=== PATIENT | male | born 1955 | race Caucasian/White ===

== ENCOUNTER 2019-04-21 10:06 | Outpatient (CLI) | payer OTHER, SELFPAY ==
[2019-04-21 10:37] LABS: Hematocrit 35.7 % (42.0-52.0); Hemoglobin 11.4 g/dL (14.0-18.0); Mean Corpuscular HGB Conc 31.9 g/dl (32-36); Mean Corpuscular Hemoglobin 27.7 pg (26-34); Mean Corpuscular Volume 86.7 fl (80-100); Mean Platelet Volume 12.4 fl (7.4-10.4); Platelet Count Result 157 k/mm3 (150-375); Red Blood Count 4.12 M/mm3 (4.6-6.20); Red Cell Distribution Width 15.5 % (11.5-14.5); White Blood Count 7.9 K/mm3 (4.5-10.0)
[2019-04-21 10:50] LABS: Albumin Level 3.9 g/dL (3.5-5.1); Blood Urea Nitrogen 33 mg/dL (9-20); Calcium 8.6 mg/dL (8.4-10.2); Carbon Dioxide 19 mmol/L (22-30); Chloride 106 mmol/L (98-107); Estimated Glomerular Filt Rate 17; Glucose 141 mg/dL (75-110); Phosphorus 4.2 mg/dL (2.5-4.5); Potassium 4.2 mmol/L (3.4-5.0); Sodium 139 mmol/L (137-145)
[2019-04-21 10:59] LABS: Iron 69 ug/dL (49-181)
[2019-04-21 11:02] LABS: Total Protein Urine Random > 600 mg/dL
[2019-04-21 11:08] LABS: Percent Iron Saturation 20 % (20-50)
[2019-04-21 11:36] LABS: Vitamin D 25 Hydroxy 39.2 ng/mL
[2019-04-21 11:57] LABS: Folic Acid > 20.0 ng/mL (2.76->20)
== END 2019-04-21 10:07 | disposition home or self-care (01) ==
PROVIDERS: PCP Family Medicine; Visit Provider Internal Medicine Nephrology
DX: N18.4 Chronic kidney disease, stage 4 (severe) (principal); D63.1 Anemia in chronic kidney disease
CPT/HCPCS: 36415; 80069; 82306; 82570; 82607; 82728; 82746; 83540; 83550; 83970; 84156; 85027

== ENCOUNTER 2019-05-14 05:13 | Inpatient (IN) | payer OTHER, SELFPAY ==
[2019-05-14] VITALS (16 sets, daily range): BP systolic 174–218; BP diastolic 77–101; PULSE 60–85; RESP 16–20; TEMP 36.4–36.9; O2SAT 96–100; BMI 37.8; BMI 35.9
--- NOTE | ~2019-05-14 | CT_ITS ---
EXAMINATION: CT abdomen pelvis wo con DATE: 05/14/2019 06:15 INDICATION: Left flank pain TECHNIQUE: Computed tomography (CT) of the abdomen and pelvis was performed without intravenous contr ast. Automated exposure control and iterative reconstruction technique were employed. The dose-length product was 1319.61 mGy-cm. COMPARISON: 12/19/2015 FINDINGS: Unchanged 7 mm noncalcified granuloma in the left lower lobe. Heart size is normal. Atherosclerotic c oronary artery calcification. No pericardial or pleural effusion. Unchanged small sliding-type hiatal hernia versus wall thickening the distal esophagus. Cholecystectomy clips the gallbladder fossa. Aga in seen is mild splenomegaly measuring 15.4 cm which may be related to body habitus. Bilateral renal cysts, several including the heart is 6.6 cm cyst at the lower pole of the right kidn ey demonstrating posterior layering milk of calcium. Interval decrease in size of a now 12 mm interme diate attenuation proteinaceous/hemorrhagic exophytic cyst at the lower pole of the left kidney. Post operative changes of cortical scarring along the anterior margin of the interpolar region of the righ t kidney consistent with prior partial nephrectomy. No urolithiasis or hydronephrosis. There is mild stranding and 20 mm nodular density in the fat along the caudal margin of the right hepatic lobe with differential including omental infarct although could not absolutely exclude local metastatic diseas e related to the adjacent renal cell carcinoma resection. Bowels including the appendix are normal. Diffuse bladder wall thickening which may be related to chr onic outlet obstruction from the enlarged prostate or cystitis. Moderate-sized bilateral fat-containi ng inguinal hernias, on the right including both direct and indirect components. No pathologically en larged abdominal or pelvic lymphadenopathy. No free intraperitoneal gas or fluid. There are bridging osteophytes at multiple levels in the spine, consistent with diffuse idiopathic skeletal hyperostosis (DISH). This spans couple chronic appearing mild compression fractures at 11 and T12. Unchanged T12 and L4 hemangiomas as well as a few small scattered bone islands. No suspicious lytic or blastic bone lesions. IMPRESSION: 1. Mild stranding and 12 mm nodular density in the fat along the caudal margin of the right hepatic l obe, also in relatively close proximity to the right kidney and normal-appearing ascending colon. Dif ferential would include omental infarct or potentially local metastatic disease related to the adjace nt partial right nephrectomy for renal cell carcinoma. 2. Diffuse bladder wall thickening which could be related to chronic outlet obstruction from the enla rged prostate or cystitis either acute or chronic. Correlate with urinalysis. 3. Moderate-sized bilateral fat-containing inguinal hernias. Reviewed, dictated and finalized at location A. IMPRESSION: 1. Mild stranding and 12 mm nodular density in the fat along the caudal margin of the right hepatic lobe, also in relatively close proximity to the right kidn ey and normal-appearing ascending colon. Differential would include omental inf arct or potentially local metastatic disease related to the adjacent partial ri ght nephrectomy for renal cell carcinoma. 2. Diffuse bladder wall thickening which could be related to chronic outlet obs truction from the enlarged prostate or cystitis either acute or chronic. Correl ate with urinalysis. 3. Moderate-sized bilateral fat-containing inguinal hernias.
--- NOTE | ~2019-05-14 | XR_ITS ---
EXAMINATION: XR chest 2V DATE: 05/14/2019 06:00 INDICATION: Chest pain TECHNIQUE: PA and lateral views of the chest were obtained. COMPARISON: Chest radiograph dated 03/11/2019 FINDINGS: Calcified nodule in the right upper lung zone consistent with old granulomatous disease. No other air space opacities, pulmonary edema, pleural effusion or pneumothorax. The cardiomediastinal silhouette is normal. There are bridging osteophytes at multiple levels in the spine, consistent with diffuse id iopathic skeletal hyperostosis (DISH). Cholecystectomy clips in the right upper quadrant. IMPRESSION: 1. No acute cardiopulmonary disease. Reviewed, dictated and finalized at location A.
--- NOTE | 2019-05-14 05:26 | ECG_ITS ---
Measurements Intervals [place] Rate: 65 P: 34 LA: 157 QRS: -36 QRSD: 92 T: 48 QT: 406 QTc: 423 Interpretive Statements SINUS RHYTHM LEFT AXIS DEVIATION INCOMPLETE RIGHT BUNDLE BRANCH BLOCK DELAYED PRECORDIAL R/S TRANSITION BORDERLINE T WAVE ABNORMALITY- INF/LAT LEADS BASELINE ARTIFACT- I, III, AVR, AVL BORDERLINE ECG Electronically Signed On 05-14-2019 7:25:03 CDT by Dilan Preciado D.O.
--- NOTE | 2019-05-14 05:28 | ED.BACK ---
HPI - Back Pain/Injury General Chief Complaint: Back Pain/Injury <Hiro Shane DO - Last Filed: 05/14/19 06:03> Stated Complaint: flank, back, chest, neck pain <Hiro Shane DO - Last Filed: 05/14/19 06:03> Time Seen by Provider: 05/14/19 05:22 <Hiro Shane DO - Last Filed: 05/14/19 06:03> Source: old records reviewed <Hiro Shane DO - Last Filed: 05/14/19 06:03> History of Present Illness HPI Narrative: Patient presents emergency department from home for back pain. Patient states that symptoms began approximately 3 days ago. The pain is located in the left mid back and radiates around into the left lower chest upper abdomen and then up into the neck. The pain is described as sharp and stabbing. Patient denies any associated symptoms. Denies any fevers or chills shortness of breath nausea vomiting diarrhea or any other symptoms. States the pain feels like gas . States he did try taking some gas medicine at home with no relief. Patient denies any known trauma or injury. He denies any thing that makes the pain better or worse <Hiro Shane DO - Last Filed: 05/14/19 06:03> Related Data Home Medications: Home Medications Medication Instructions Recorded Confirmed aspirin [Aspirin Low Dose] 81 mg PO DAILY 02/01/19 05/14/19 carvedilol [Coreg] 25 mg PO BID 02/01/19 05/14/19 cholecalciferol (vitamin D3) 2,000 unit PO DAILY 02/01/19 05/14/19 fenofibrate micronized 134 mg PO DAILY 02/01/19 05/14/19 furosemide [Lasix] 40 mg PO EVERY OTHER DAY 02/01/19 05/14/19 hydralazine 50 mg PO BID 02/01/19 05/14/19 insulin glargine [Lantus Solostar 40 unit SUBCUT BID 02/01/19 05/14/19 U-100 Insulin] vepkarch-pbm-ZJ-dnjub-xrlm-jvk 1 tablet PO BID 02/01/19 05/14/19 [Multi-Betic] sodium bicarbonate 650 mg PO BID 02/01/19 05/14/19 vit C-vit X-Ok-Qs-lutein-zeax 1 tablet PO BID 02/01/19 05/14/19 [ICaps AREDS2 (copper citrate)] atorvastatin 40 mg PO HS 05/14/19 05/14/19 blood sugar diagnostic [OneTouch 05/14/19 05/14/19 Ultra Blue Test Strip] <Hiro Shane DO - Last Filed: 05/14/19 06:03> Allergies/Adverse Reactions: Allergies Allergy/AdvReac Type Severity Reaction Status Date / Time No Known Allergies Allergy Unknown Verified 02/22/19 13:19 <Hiro Shane DO - Last Filed: 05/14/19 06:03> Review of Systems Review of Systems: Narrative: Gen.: Denies fevers or chills Eyes: Denies eye pain or visual change ENT: Denies congestion Respiratory: Denies shortness of breath or cough CV: Denies chest pain or palpitations GI: Denies nausea, emesis or diarrhea. Reports left upper abdomen pain denies burning, urgency, frequency or hematuria Musculoskeletal: Reports left mid back pain Neuro: Denies numbness, tingling, weakness or focal weakness Skin: Denies rash Except as documented, all other systems reviewed and negative <Hiro Shane, DO - Last Filed: 05/14/19 06:03> [facility] Past Medical History Medical History: Medical History Chronic GERD Diabetes Hypercholesterolemia Hypertension SHABNAM (obstructive sleep apnea) <Hiro Shane DO - Last Filed: 05/14/19 06:03> Surgical History Surgical History: Surgical History History of cholecystectomy History of partial nephrectomy Status post left cataract extraction Status post right knee replacement <Hiro Shane DO - Last Filed: 05/14/19 06:03> Family History Family History: Family History Mother Hypertension Cerebrovascular accident Father Family history of malignant neoplasm Carcinoma of colon <Hiro Shane DO - Last Filed: 05/14/19 06:03> Social History Social History: Social History Smoking status: Never smoker Second huber
[2019-05-14 05:40] LABS: Basophils Percent Auto 0.2 % (0.2-1.2); Hemoglobin 10.7 g/dL (14.0-18.0); Immature Granulocyte Absolute 0.15 K/mm3 (0.00-0.031); Immature Granulocyte Percent A 2.4 % (0-0.5); Lymphocytes Absolute Auto 0.92 K/mm3 (0.9-3.2); Lymphocytes Percent Auto 14.9 % (18.3-44.2); Mean Corpuscular HGB Conc 31.5 g/dl (32-36); Mean Corpuscular Hemoglobin 27.9 pg (26-34); Mean Corpuscular Volume 88.8 fl (80-100); Mean Platelet Volume 12.2 fl (7.4-10.4); Monocytes Absolute Auto 0.8 K/mm3 (0.1-0.6); Monocytes Percent Auto 12.9 % (2.6-8.5); Neutrophils Absolute Auto 4.3 K/mm3 (1.3-6.7); Neutrophils Percent Auto 69.6 % (45.5-73.1); Platelet Count Result 135 k/mm3 (150-375); Red Blood Count 3.83 M/mm3 (4.6-6.20); Red Cell Distribution Width 15.5 % (11.5-14.5); White Blood Count 6.2 K/mm3 (4.5-10.0)
[2019-05-14 05:52] LABS: Alanine Aminotransferase 15 U/L (4-50); Alkaline Phosphatase 75 U/L (38-126); Aspartate Amino Transferase 25 U/L (17-59); Bilirubin,Total 0.3 mg/dL (0.2-1.3); Blood Urea Nitrogen 44 mg/dL (9-20); Calcium 10.4 mg/dL (8.4-10.2); Carbon Dioxide 23 mmol/L (22-30); Chloride 105 mmol/L (98-107); Estimated CRCL calculation 19 ml/min; Estimated Glomerular Filt Rate 14; Glucose 241 mg/dL (75-110); Lipase 248 U/L (23-300); Potassium 4.3 mmol/L (3.4-5.0); Prothrombin Time 12.9 Seconds (11.1-14.7); Sodium 136 mmol/L (137-145)
[2019-05-14 05:53] LABS: Partial Thromboplastin Time 28.1 SECONDS (22.3-36.8)
[2019-05-14 06:13] LABS: Add Urine Microscopic? YES; Appearance Urine Clear (Clear); Bilirubin Urine Negative (Negative); Blood Urine Negative (Negative); Color Urine Straw (Yellow); Glucose Urine UA 3+ mg/dL (Negative); Ketones Urine Negative (Negative); Leukocyte Esterase Ur Negative LEU/UL (Negative); Mucus Urine Rare /lpf; Nitrate Urine Negative (Negative); Protein Urine 3+ mg/dL (Negative); Urobilinogen Urine Negative mg/dL (<2.0); WBC Urine 0-3 /hpf
[2019-05-14 06:15] LABS: Troponin I 0.058 ng/mL (0.000-0.034)
[2019-05-14] MEDS: hydrALAZINE HCL 20 MG/ML VIAL 10 MG IV PUSH ×2 (07:41→11:54)
[2019-05-14] MEDS: MORPHINE SULFATE 4 MG/ML INJ IV PUSH (08:16)
--- NOTE | 2019-05-14 08:55 | PC.NURSE ---
This patient, Kendall Carl, was admitted to IMU Room 207-01. Patient/family oriented to hospital policies and general routines including ID bracelet, bed and alarms, visiting hours, pain management, procedures, bathroom and other care routines, personal items, smoking policy, room service/diet, and visiting hours. Valuables list has been completed. Information on how to activate the Rapid Response Team has been discussed. Patient/Family are encouraged to report perceived risks to care and to ask questions if they do not understand what they are told or what they should do.
[2019-05-14 09:23] LABS: Troponin I 0.058 ng/mL (0.000-0.034)
[2019-05-14 12:10] LABS: Troponin I 0.055 ng/mL (0.000-0.034)
--- NOTE | 2019-05-14 16:55 | PM.IMHP ---
H&P: HPI History of Present Illness Chief complaint: chest pain/HTN/acute on chronic kidney dz Narrative: Kendall Carl is a 64 year old male admitted with chest pains in shoulder, neck and back. pt has history of HTN and CKD. Pt sees Dr Mccall. and is awaiting a renal transplant. Pt has been taking is HTN medications but his BP is running high. Sees cardiology in [place]. trop mild elevation, renal function slightly high. Bp are high pt receive IV hydralazine. No further chest pain mentioned. Pt uses CPAP machine for sleep apnea Review of Systems Review of Systems: All systems reviewed & are unremarkable except as noted in HPI and below Constitutional: Constitutional: Denies fatigue and Denies fever(s) Cardiovascular: Cardiovascular: Reports chest pain Comments: neck, shoulder abd back Respiratory: Respiratory: Denies pain on inspiration, Denies pain with cough, Denies dyspnea and Denies dyspnea on exertion PMFSH Past Medical History Medical History Diabetes Hypercholesterolemia Hypertension Surgical History Surgical History History of cholecystectomy History of partial nephrectomy Status post left cataract extraction Status post right knee replacement Family History Family History Mother Hypertension Cerebrovascular accident Father Family history of malignant neoplasm Carcinoma of colon Social History Social History Smoking status: Never smoker Second hand tobacco smoke exposure: No Alcohol intake: never Substance use: never Substance use type: does not use Gender identity (if verbalized by the patient): Male Spiritual care concerns: No Agree to blood products: Yes Meds Home Medications and Allergies Home Medications Medication Instructions Recorded Confirmed Type blood-glucose meter #1 each 12/23/18 05/14/19 Rx lancets 30 gauge #100 each 12/23/18 05/14/19 Rx aspirin [Aspirin Low Dose] 81 mg PO DAILY 02/01/19 05/14/19 History carvedilol [Coreg] 25 mg PO BID 02/01/19 05/14/19 History cholecalciferol (vitamin D3) 2,000 unit PO DAILY 02/01/19 05/14/19 History fenofibrate micronized 134 mg PO DAILY 02/01/19 05/14/19 History furosemide [Lasix] 40 mg PO EVERY OTHER DAY 02/01/19 05/14/19 History hydralazine 50 mg PO BID 02/01/19 05/14/19 History insulin glargine [Lantus Solostar 40 unit SUBCUT BID 02/01/19 05/14/19 History U-100 Insulin] ssrgmpbb-kco-LU-npuxe-hntl-wex 1 tablet PO BID 02/01/19 05/14/19 History [Multi-Betic] sodium bicarbonate 10 g PO BID 02/01/19 05/14/19 History vit C-vit D-En-Ir-lutein-zeax 1 tablet PO BID 02/01/19 05/14/19 History [ICaps AREDS2 (copper citrate)] pen needle, diabetic 32 gauge x #100 each 04/23/19 05/14/19 Rx 1/4 levothyroxine 112 mcg tablet 112 mcg PO DAILY #90 tablet 05/03/19 05/14/19 Rx atorvastatin 40 mg PO HS 05/14/19 05/14/19 History blood sugar diagnostic [OneTouch 05/14/19 05/14/19 History Ultra Blue Test Strip] Allergies Allergy/AdvReac Type Severity Reaction Status Date / Time No Known Allergies Allergy Unknown Verified 02/22/19 13:19 Vital Signs Vital Signs - 24 hr 05/14/19 05:17 05/14/19 06:22 05/14/19 07:30 Temperature 36.8 C Pulse Rate 65 61 63 Respiratory Rate 19 19 18 Blood Pressure 217/101 H 207/99 H 192/90 H Pulse Oximetry 98 100 97 05/14/19 08:45 05/14/19 10:00 05/14/19 12:00 Temperature 36.4 C L 36.4 C L Pulse Rate 63 62 63 Respiratory Rate 16 20 18 Blood Pressure 183/77 H 194/84 H 218/87 H Pulse Oximetry 96 98 96 05/14/19 12:34 Temperature Pulse Rate Respiratory Rate Blood Pressure 180/84 H Pulse Oximetry Exam Narrative: Exam Narrative: Morbidly obese HENMT: Head: normocephalic Eyes: General: appearance normal, both eyes and all re
--- NOTE | 2019-05-14 17:32 | PM.CNNEP ---
Assessment and Plan Assessment and plan (1) ALEX (acute kidney injury): Code(s): N17.9 - Acute kidney failure, unspecified Status: Acute (2) Chronic kidney disease, stage IV (severe): Code(s): N18.4 - Chronic kidney disease, stage 4 (severe) Status: Chronic (3) Hypertension: Code(s): I10 - Essential (primary) hypertension Status: Chronic (4) Chest pain: Code(s): R07.9 - Chest pain, unspecified Status: Acute (5) Diabetes: Code(s): E11.9 - Type 2 diabetes mellitus without complications Status: Chronic Assessment and Plan: . Additional Plan Kendall has what appears to be an acute insult on top of his known chronic kidney disease stage 4. I suppose this may be more of a sign of disease progression rather than an acute insult on top of his baseline kidney disease but it is difficult to say for sure. He has already had extensive outpatient evaluation with regard to his kidney disease is I see no reason to repeat this. For further evaluation of his elevated creatinine, I will check urine electrolytes, urine eosinophils, UA and urine culture and follow up on a renal ultrasound on the assumption that there may be some other anatomical issue present that the CT scan of her HIS abdomen and pelvis did not demonstrate. Cardiology has been counseled with regard to his pain symptoms particularly his chest pain and I would assume that is elevated troponin may be more reflective of his advanced kidney disease than acute coronary syndrome but I will defer this evaluation to Cardiology. In spite of his elevated creatinine, he has no critical electrolyte abnormalities and his volume status appears to be stable and he has continued to make urine at least today. I would not be opposed to a trial of IV fluid to see if this will improve his overall kidney function but he does not appear to be overtly volume depleted at the time of my assessment. I will continue follow patient with you while he remains hospitalized and make further recommendations during his hospital course. Thank you for allowing me to participate in the care of this patient. History of Present Illness Reason for Consult Consult date: 05/14/19 Reason for consult: acute renal failure (on chronic kidney disease) Chief Complaint Chief complaint: chest pain/HTN/acute on chronic kidney dz History of Present Illness Narrative: The patient is 64 year old male with a past medical history as outlined below who presented to [facility] complaints of chest pains as well as pain in his shoulders, neck and back. He states states that the above symptoms began approximately 3 - 4 days ago. Initially, the pain was located in the left mid back and radiates around into the left lower chest and upper abdomen and then up into the neck. He described the bernardino as sharp and stabbing. No other associated symptoms with regard to nausea, vomiting, shortness of breath, palpitations, dizziness, or lightheadedness. He reports no fevers or chills either. He felt as if the pain was gas but taking medications for this at home provided no relief. Patient denies any known trauma or injury to himself recently. He denies that anything makes the pain better or worse. Workup and evaluation in the emergency room demonstrated the patient be quite hypertensive (presumably secondary to pain). Routine blood tests were done which demonstrated an elevated BUN and creatinine above his baseline as well. His initial troponin was mildly elevated as well which was presumably checked given his complaints of chest pain. He also underwent a CT scan of the abdomen pelvis was demonstrated a 12 mm nodular density in fat along the caudal model of the right hepatic lobe clinically in close proximity to the right kidney with a possible concern for omental infarct or possible metastatic disease from his previous right nephrectomy. Given the patient's hist
[2019-05-14 18:22] LABS: Basophils Percent Auto 0.1 % (0.2-1.2); Hematocrit 34.7 % (42.0-52.0); Immature Granulocyte Absolute 0.14 K/mm3 (0.00-0.031); Immature Granulocyte Percent A 1.8 % (0-0.5); Lymphocytes Absolute Auto 0.99 K/mm3 (0.9-3.2); Mean Corpuscular HGB Conc 31.7 g/dl (32-36); Mean Corpuscular Volume 88.3 fl (80-100); Mean Platelet Volume 12.3 fl (7.4-10.4); Monocytes Absolute Auto 0.9 K/mm3 (0.1-0.6); Monocytes Percent Auto 12.3 % (2.6-8.5); Neutrophils Absolute Auto 5.6 K/mm3 (1.3-6.7); Neutrophils Percent Auto 72.8 % (45.5-73.1); Platelet Count Result 155 k/mm3 (150-375); Red Blood Count 3.93 M/mm3 (4.6-6.20); Red Cell Distribution Width 15.5 % (11.5-14.5); White Blood Count 7.6 K/mm3 (4.5-10.0)
[2019-05-14 18:32] LABS: Partial Thromboplastin Time 26.9 SECONDS (22.3-36.8); Prothrombin Time 12.9 Seconds (11.1-14.7)
[2019-05-14] MEDS: SODIUM BICARBONATE TAB 650 MG TABLET PO (19:31)
[2019-05-14] MEDS: OPTI-GEN TAB 1 TABLET PO (19:31)
[2019-05-14] MEDS: hydrALAZINE HCL 50 MG TABLET PO (19:31)
[2019-05-14] MEDS: carvediloL 25 MG TABLET PO (19:31)
[2019-05-14 19:39] LABS: Glucose Point of Care 231 (65-105)
[2019-05-14] MEDS: INSULIN GLARGINE (*BKC) 100 UNITS/ML 40 UNITS SUB-Q (19:41)
[2019-05-14] MEDS: ATORVASTATIN 40 MG TABLET PO (21:15)
[2019-05-14] MEDS: HEPARIN SODIUM 5,000 UNITS/ML VIAL 5000 UNITS SUB-Q (21:16)
[2019-05-15] VITALS (9 sets, daily range): BP systolic 177–194; BP diastolic 77–87; PULSE 58–72; RESP 18–20; TEMP 36.5–37; O2SAT 88–98
[2019-05-15] MEDS: hydrALAZINE HCL 20 MG/ML VIAL 10 MG IV PUSH (03:58)
[2019-05-15] MEDS: ACETAMINOPHEN 325 MG TABLET 650 MG PO (03:58)
[2019-05-15 05:48] LABS: Basophils Percent Auto 0.2 % (0.2-1.2); Hematocrit 31.8 % (42.0-52.0); Hemoglobin 10.3 g/dL (14.0-18.0); Immature Granulocyte Absolute 0.13 K/mm3 (0.00-0.031); Lymphocytes Absolute Auto 0.99 K/mm3 (0.9-3.2); Lymphocytes Percent Auto 15.2 % (18.3-44.2); Mean Corpuscular HGB Conc 32.4 g/dl (32-36); Mean Corpuscular Hemoglobin 28.2 pg (26-34); Mean Corpuscular Volume 87.1 fl (80-100); Mean Platelet Volume 12.8 fl (7.4-10.4); Monocytes Absolute Auto 0.8 K/mm3 (0.1-0.6); Monocytes Percent Auto 11.8 % (2.6-8.5); Neutrophils Absolute Auto 4.6 K/mm3 (1.3-6.7); Neutrophils Percent Auto 70.8 % (45.5-73.1); Platelet Count Result 146 k/mm3 (150-375); Red Blood Count 3.65 M/mm3 (4.6-6.20); Red Cell Distribution Width 15.5 % (11.5-14.5); White Blood Count 6.5 K/mm3 (4.5-10.0)
[2019-05-15 05:50] LABS: Blood Urea Nitrogen 44 mg/dL (9-20); Calcium 9.4 mg/dL (8.4-10.2); Carbon Dioxide 24 mmol/L (22-30); Chloride 106 mmol/L (98-107); Estimated CRCL calculation 23 ml/min; Estimated Glomerular Filt Rate 15; Glucose 89 mg/dL (75-110); Potassium 4.2 mmol/L (3.4-5.0); Sodium 136 mmol/L (137-145)
[2019-05-15] MEDS: LEVOTHYROXINE SODIUM 112 MCG TABLET PO (06:45)
[2019-05-15 07:59] LABS: Glucose Point of Care 109 (65-105)
[2019-05-15] MEDS: OPTI-GEN TAB 1 TABLET PO (08:23)
[2019-05-15] MEDS: ASPIRIN 81 MG ENTERIC TABLET PO (08:23)
[2019-05-15] MEDS: carvediloL 25 MG TABLET PO (08:23)
[2019-05-15] MEDS: FUROSEMIDE 40 MG TABLET PO (08:24)
[2019-05-15] MEDS: hydrALAZINE HCL 50 MG TABLET PO (08:24)
[2019-05-15] MEDS: CHOLECALCIFEROL 1,000 UNIT TABLET 2000 UNITS PO (08:24)
[2019-05-15] MEDS: HEPARIN SODIUM 5,000 UNITS/ML VIAL 5000 UNITS SUB-Q (08:25)
[2019-05-15] MEDS: INSULIN GLARGINE (*BKC) 100 UNITS/ML 40 UNITS SUB-Q (08:26)
--- NOTE | 2019-05-15 10:47 | PM.CNCAR ---
Assessment and Plan Assessment and plan (1) CAD (coronary artery disease): Code(s): I25.10 - Atherosclerotic heart disease of [place] coronary artery without angina pectoris Status: Acute Assessment and Plan: Mild nonobstructive disease 40% mid LAD by left heart catheterization 11/10/2018. Chest pain symptoms atypical, noncardiac and not related to nonobstructive disease noted on recent left heart catheterization. Continue aggressive medical therapy with aspirin, statin, carvedilol, management of diabetes and BP control. Up titration of antihypertensives per primary service and Nephrology. No further invasive cardiovascular workup indicated. Troponin flat, atypical constant symptoms, nonobstructive CAD recently on left heart catheterization, no EKG changes suggestive of ischemia. Patient is not suffering from an acute coronary syndrome. Do not need to repeat echocardiogram given close follow-up with Outpatient Cardiology and recent workup. Thank you for this consultation. We will sign off. Please do not hesitate to contact us with any additional questions or concerns. (2) Uncontrolled hypertension: Code(s): I10 - Essential (primary) hypertension Status: Acute Assessment and Plan: BP control. Will defer to Nephrology and primary service for management. (3) Elevated troponin level not due to acute coronary syndrome: Code(s): R79.89 - Other specified abnormal findings of blood chemistry Status: Acute Assessment and Plan: Non [place] troponin elevation. Type 2 infarct secondary to uncontrolled hypertension, advanced renal disease not acute coronary syndrome. (4) Acute renal failure superimposed on stage 4 chronic kidney disease: Code(s): N17.9 - Acute kidney failure, unspecified; N18.4 - Chronic kidney disease, stage 4 (severe) Status: Acute Assessment and Plan: Per Nephrology. (5) Diabetes: Code(s): E11.9 - Type 2 diabetes mellitus without complications Status: Chronic Assessment and Plan: Per primary service. (6) SHABNAM (obstructive sleep apnea): Code(s): G47.33 - Obstructive sleep apnea (adult) (pediatric) Status: Chronic Assessment and Plan: Compliance with CPAP. Lifestyle modification. (7) DM type 2 with diabetic dyslipidemia: Code(s): E11.69 - Type 2 diabetes mellitus with other specified complication; E78.5 - Hyperlipidemia, unspecified Status: Acute Assessment and Plan: Per primary service. History of Present Illness History of Present Illness Consult date/time: Date of service: 05/15/19 10:47 This is a cardiology consultation at the request of Dr. Taylor of the [facility] service for our opinion regarding elevated troponin and atypical back and chest pain. Requesting physician: Gisselle Taylor MD Consult reason: chest pain and Other (Elevated troponin) Reason For Visit: chest pain/HTN/acute on chronic kidney dz Narrative: Patient is a very pleasant 64-year-old male with a past medical history significant for hypertension, diabetes mellitus, chronic kidney disease stage 4, obstructive sleep apnea on CPAP, obesity, GERD, and dyslipidemia who presented to the emergency department with worsening left upper shoulder/back pain radiating to his left neck with occasional left lower chest discomfort. Patient states he has had these symptoms for the past 4-5 months and/or centrally constant. His symptoms wax and wane in intensity and notes that the component of chest discomfort is worsened after meals predominantly. He presented to the ER as his symptoms worsened and he could not find a comfortable position. At presentation he was very hypertensive with BP 218/102. He was given IV hydralazine with an improvement in his blood pressure. He notes that his symptoms improved as well but did not resolve with lower blood pressure. He does not check his blood pressure at home. He denies exertional c
[2019-05-15 11:34] LABS: Glucose Point of Care 175 (65-105)
--- NOTE | 2019-05-15 14:56 | PM.DS ---
DS: Diagnosis Admitting Diagnosis Admitting Diagnosis: Chronic kidney disease, stage 4 (severe) Discharge Diagnosis (1) Chronic kidney disease, stage 4 (severe): Code(s): N18.4 - Chronic kidney disease, stage 4 (severe) Status: Acute Assessment and Plan: Consulted nephrology, creat is 4.3, pt wants to folow up with Dr anderson, pt states he is on a waiting list for renal transplant. Dr Pacheco is recommends - urine electrolytes, urine eosinophils, UA and urine culture and follow up on a renal ultrasound. (2) Type 2 diabetes mellitus with hyperglycemia, with long-term current use of insulin: Code(s): E11.65 - Type 2 diabetes mellitus with hyperglycemia; Z79.4 - shelter (current) use of insulin Status: Acute Assessment and Plan: Acuchecks, SSI , uncontrolled, HBaic is 10, pt adviced to do beter with his diabetes control. (3) Chronic diastolic (congestive) heart failure: Code(s): I50.32 - Chronic diastolic (congestive) heart failure Status: Acute Assessment and Plan: Echo ordered. (4) Chest pain: Code(s): R07.9 - Chest pain, unspecified Status: Acute Assessment and Plan: Non cardiac trop raise, mild nonobstructive disease 40% mid LAD by left heart catheterization 11/10/2018. Pt advised to continue cardiac medications and have better control of his htn and dm. (5) Hypertension: Code(s): I10 - Essential (primary) hypertension Status: Chronic Assessment and Plan: Uncontrolled HTN controlled by hydralazine iv pt transitioned to oral hydralazine tid. DS: Summary Time Spent with Patient Time attestation: Total time spent providing and/or coordinating discharge services:38 minutes on day of dischrage Exam Narrative: Exam Narrative: Morbidly obese HENMT: Head: normocephalic Eyes: General: appearance normal, both eyes and all related structures Pupils: Equal, round and reactive pupils present Neck: Neck: supple Chest: Chest palpation & inspection: normal inspection of the chest Resp: Effort & Inspection: normal respiratory effort Auscultation: clear to auscultation bilaterally Cardio: Jugular venous distension: no JVD Rhythm: regular rhythm Heart sounds: S1 normal heart sound present and S2 normal heart sound present GI: Inspection: normal to inspection Auscultation: normal bowel sounds : General: Yes no CVA tenderness Back/Spine/Pelvis: Back: no CVA tenderness Skin: General skin exam: normal color and dry skin Neuro: Cranial nerves: Yes CN's II-XII intact bilaterally and Yes Equal, round and reactive pupils present Cognition (Neuro): normal cognition Speech: normal speech Motor exam (neuro): 5/5 motor strength present throughout Extrem: General: normal to inspection Psych: Appearance: grossly normal Mental Status: mental status grossly normal DS: Data Data Completed and Pending Labs on day of discharge: Labs from last 24 hours 05/15/19 05/15/19 05/15/19 11:31 07:54 04:43 WBC RBC Hgb Hct MCV MCH MCHC RDW Plt Count MPV Immature Gran % (Auto) Neut % (Auto) Lymph % (Auto) [place] % (Auto) Eos % (Auto) Baso % (Auto) Lymph # (Auto) [place] # (Auto) Eos # (Auto) Baso # (Auto) Abs Immat Gran (auto) Absolute Neuts (auto) Absolute Nucleated RBC Nucleated RBC % PT INR APTT Sodium 136 L Potassium 4.2 Chloride 106 Carbon Dioxide 24 BUN 44 H Creatinine 4.00 H Estim Creat Clear Calc 23 Estimated GFR 15 L Glucose 89 POC Capillary Glucose 175 H 109 Calcium 9.4 05/15/19 05/14/19 05/14/19 04:43 19:37 18:11 WBC 6.5 RBC 3.65 L Hgb 10.3 L Hct 31.8 L MCV 87.1 MCH 28.2 MCHC 32.4 RDW 15.5 H Plt Count 146 L MPV 12.8 H Immature Gran % (Auto) 2.0 H Neut % (Auto) 70.8 Lymph % (Auto) 15.2 L [place] % (Auto) 11.8 H Eos % (Auto) 0.0 Baso % (A
== END 2019-05-15 13:50 | disposition home or self-care (01) | DRG 281 ==
LOC: ANHED 08:11 → ANHIMU 08:25
PROVIDERS: Admitting Provider Family Medicine; Emergency Provider Emergency Medicine; PCP Family Medicine; Visit Provider Family Medicine
DX: I13.0 Hypertensive heart and chronic kidney disease with heart failure and stage 1 through stage 4 chronic kidney disease, or unspecified chronic kidney disease (principal); I21.A1 Myocardial infarction type 2; N18.4 Chronic kidney disease, stage 4 (severe); I50.32 Chronic diastolic (congestive) heart failure; N17.9 Acute kidney failure, unspecified; E11.22 Type 2 diabetes mellitus with diabetic chronic kidney disease; E11.65 Type 2 diabetes mellitus with hyperglycemia; K21.9 Gastro-esophageal reflux disease without esophagitis; G47.33 Obstructive sleep apnea (adult) (pediatric); E78.00 Pure hypercholesterolemia, unspecified; E66.01 Morbid (severe) obesity due to excess calories; Z96.651 Presence of right artificial knee joint; Z68.35 Body mass index [BMI] 35.0-35.9, adult; Z79.82 Long term (current) use of aspirin; Z28.21 Immunization not carried out because of patient refusal; Z90.49 Acquired absence of other specified parts of digestive tract; Z98.42 Cataract extraction status, left eye; Z98.41 Cataract extraction status, right eye; Z79.4 Long term (current) use of insulin; I25.10 Atherosclerotic heart disease of native coronary artery without angina pectoris
CPT/HCPCS: 36415; 71046; 74176; 80048; 80053; 81001; 83690; 84484; 85025; 85610; 85730; 93005; 96374; 96375; 99285; A9270; J0360; J1644; J1815; J2270

== ENCOUNTER 2019-05-27 10:35 | Outpatient (CLI) | payer OTHER, SELFPAY ==
[2019-05-27 11:04] LABS: Albumin Level 4.1 g/dL (3.5-5.1); Blood Urea Nitrogen 46 mg/dL (9-20); Calcium 9.7 mg/dL (8.4-10.2); Carbon Dioxide 23 mmol/L (22-30); Chloride 108 mmol/L (98-107); Estimated Glomerular Filt Rate 15; Glucose 118 mg/dL (75-110); Phosphorus 4.6 mg/dL (2.5-4.5); Potassium 4.8 mmol/L (3.4-5.0); Sodium 139 mmol/L (137-145)
[2019-05-27 11:17] LABS: Parathyroid Intact 30.2 pg/mL (7.5-53.5)
== END 2019-05-27 10:36 | disposition home or self-care (01) ==
LOC: ANHLAB 10:37
PROVIDERS: PCP Family Medicine; Visit Provider Internal Medicine Nephrology
DX: N18.4 Chronic kidney disease, stage 4 (severe) (principal); E03.8 Other specified hypothyroidism
CPT/HCPCS: 36415; 80069; 83970; 84443

== ENCOUNTER 2020-06-02 12:31 | Outpatient (CLI) | payer OTHER, SELFPAY ==
--- NOTE | ~2020-06-02 | XR_ITS ---
EXAMINATION: XR chest 2V DATE: 06/02/2020 12:51 INDICATION: Cough. Shortness of breath. TECHNIQUE: Frontal and lateral views of the chest were obtained. COMPARISON: Chest 2 views 05/14/2019 FINDINGS: A calcified right lung nodule is consistent with old granulomatous disease. No pleural effu apoorva or pneumothorax. The heart size is normal. Surgical clips in the right upper quadrant are likely from cholecystectomy. There is chronic anterior wedging of multiple vertebral bodies. IMPRESSION: 1. No acute cardiopulmonary disease. Reviewed, dictated and finalized at location A.
== END 2020-06-02 12:32 | disposition home or self-care (01) ==
PROVIDERS: PCP Family Medicine; Visit Provider Physician Assistant
DX: R05 Cough (principal)
CPT/HCPCS: 71046

== ENCOUNTER 2020-09-02 11:06 | Emergency (ER) | payer OTHER, SELFPAY ==
[2020-09-02] VITALS (7 sets, daily range): BP systolic 108–146; BP diastolic 60–74; PULSE 79–83; RESP 18–20; TEMP 36.9; O2SAT 96–100
--- NOTE | ~2020-09-02 | XR_ITS ---
EXAMINATION: XR abdomen/kub 1V INDICATION: Right flank pain TECHNIQUE: Supine views of the abdomen were obtained on 2 radiographs. COMPARISON: CT from today FINDINGS: No urolithiasis is identified. A peritoneal dialysis catheter coils in the left mid abdomen . Cholecystectomy clips are noted. The bowel gas pattern is normal. IMPRESSION: 1. No urolithiasis identified. Reviewed, dictated and finalized at location A.
--- NOTE | ~2020-09-02 | CT_ITS ---
EXAMINATION: CT abdomen pelvis wo con DATE: 09/02/2020 13:39 INDICATION: Right flank pain TECHNIQUE: Computed tomography (CT) of the abdomen and pelvis was performed without intravenous contr ast. The dose-length product (DLP) was 1294.16 mGy-cm. Automated exposure control and iterative recon struction technique were employed. COMPARISON: 05/14/2019 FINDINGS: Minimal dependent atelectasis is present in the lung bases. The heart size is normal. There is mild nodularity of the liver surface. The gallbladder is surgically absent. The mildly enlarged s pleen measures up to 14.9 cm. The pancreas and adrenal glands are normal. There are tiny foci of free intraperitoneal gas in the upper abdomen. There are changes of partial right nephrectomy. Simple and hemorrhagic cysts of the right kidney measure up to 4 cm. Simple and hemorrhagic cysts of the left k idney measure up to 3.8 cm. There is a new 3 cm exophytic mass projecting from the medial aspect of k idney lower pole on image 78. A peritoneal dialysis catheter coiled within the mid abdomen with a sma ll amount of surrounding fluid. A small amount of infiltration of the fat is seen near the right hepa tic lobe, likely sequela of right kidney surgery. There is mild periportal lymphadenopathy, likely re active. There are no dilated loops of bowel. The prostate is enlarged. There is severe lumbar spondyl osis. There are fat-containing umbilical and bilateral inguinal hernias. The appendix is normal. IMPRESSION: 1. Tiny foci of free intraperitoneal gas in the upper abdomen which could relate to the peritoneal di alysis catheter. Bowel perforation is also a consideration however no source is identified. 2. New indeterminate mass of the left kidney lower pole. Follow-up with nonemergent CT or MRI without and with contrast is recommended. 3. Mild nodularity of the liver surface, consistent with cirrhosis. Reviewed, dictated and finalized at location A. IMPRESSION: 1. Tiny foci of free intraperitoneal gas in the upper abdomen which could relat e to the peritoneal dialysis catheter. Bowel perforation is also a consideratio n however no source is identified. 2. New indeterminate mass of the left kidney lower pole. Follow-up with nonemer gent CT or MRI without and with contrast is recommended. 3. Mild nodularity of the liver surface, consistent with cirrhosis.
--- NOTE | 2020-09-02 12:28 | ED.ABDPAIN ---
HPI - Abdominal Pain General Chief Complaint: Abdominal Pain Stated Complaint: abd pain Time Seen by Provider: 09/02/20 12:04 Source: patient and RN notes reviewed Mode of arrival: ambulatory Limitations: no limitations History of Present Illness HPI narrative: This is a 65 year old male with chronic renal failure on peritoneal dialysis, DM, hypertension who presents for evaluation right flank pain. Patient states his pain has been present for 10 days. He reports pain to right upper abdomen that radiates to right low back and right groin. He states pain has been constant and progressively worsening. He started having nausea and vomiting today. He was evaluated by his primary care physician 1 week ago and he was prescribed muscle relaxers. He states his pain is getting worse. He denies dysuria or hematuria. He denies fever or chills. He reports chronic weakness. He reports history of kidney stones but his pain is different. Related Data Home Medications Medication Instructions Recorded Confirmed ICaps AREDS2 (copper citrate) 1 tablet PO BID 02/01/19 08/23/20 aspirin [Aspirin Low Dose] 81 mg PO DAILY 02/01/19 08/23/20 cholecalciferol (vitamin D3) 2,000 unit PO DAILY 02/01/19 08/23/20 sodium bicarbonate 650 mg PO BID 02/01/19 08/23/20 atorvastatin 80 mg PO HS 05/14/19 08/23/20 blood sugar diagnostic [OneTouch 05/14/19 08/23/20 Ultra Blue Test Strip] carvedilol 25 mg tablet 25 mg PO BID tablet 09/06/19 08/23/20 furosemide 40 mg tablet 80 mg PO BID tablet 09/06/19 08/23/20 minoxidil 2.5 mg tablet 2.5 mg PO BID 09/06/19 08/23/20 insulin glargine [Basaglar KwikPen 40 unit SUBCUT BID 09/02/20 U-100 Insulin] insulin lispro [Humalog U-100 See Rx Instructions .ROUTE .COMPLEX 09/02/20 Insulin] lisinopril 20 mg PO BID 09/02/20 Allergies Allergy/AdvReac Type Severity Reaction Status Date / Time No Known Allergies Allergy Unknown Verified 09/02/20 11:57 Review of Systems Review of Systems: All systems reviewed & are unremarkable except as noted in HPI and below PMFSH Past Medical History Medical History (Updated 09/02/20 @ 16:22 by Amalia Holman MD) Chronic GERD Diabetes DM renal manif type II, uncontrolled ESRD (end stage renal disease) Hypercholesterolemia Hypertension SHABNAM (obstructive sleep apnea) Rhinitis Surgical History Surgical History History of cholecystectomy History of partial nephrectomy Status post left cataract extraction Status post right knee replacement Family History Family History Mother Hypertension Cerebrovascular accident Father Family history of malignant neoplasm Carcinoma of colon Social History Social History Smoking status: Never smoker Second hand tobacco smoke exposure: No Alcohol intake: current Alcohol use details: rare, holidays Substance use: never Substance use type: does not use Gender identity (if verbalized by the patient): Male Spiritual care concerns: No Agree to blood products: Yes Exam Const: General: no acute distress and alert Orientation/consciousness: patient oriented x3 HENMT: Head: normocephalic and atraumatic Mouth: Yes Normal oral and palatal mucosa present, Yes lip normal, Yes oropharynx normal and Yes moist mucous membranes Throat: posterior oropharynx normal, tonsils normal and uvula midline Eyes: EOM: EOMs intact bilaterally Resp: Effort & Inspection: normal respiratory effort and no retractions Auscultation: clear to auscultation bilaterally Cardio: Rate: regular rate Rhythm: regular rhythm Heart sounds: no murmurs GI: GI Palp: Yes Soft to palpation, Yes Tenderness to palpation present (GI) (RUQ, RLQ) and No Guarding due to palpation present (GI) Auscultation: normal bowel sounds : General: Yes no CVA tenderness Back/Spine/Pelvi
[2020-09-02] MEDS: SODIUM CHLORIDE 0.9% IV 500 ML 999 ML IV CONT (12:45)
[2020-09-02] MEDS: HYDROmorphone HCL INJ (*CRX) 1 MG/ML SYR 0.5 MG IV PUSH ×2 (12:46→15:50)
[2020-09-02] MEDS: ONDANSETRON INJ 4 MG/2 ML VIAL IV PUSH (12:50)
[2020-09-02 13:31] LABS: Basophils Percent Auto 0.1 % (0.2-1.2); Hematocrit 28.9 % (42.0-52.0); Hemoglobin 9.9 g/dL (14.0-18.0); Immature Granulocyte Absolute 0.06 K/mm3 (0.00-0.031); Immature Granulocyte Percent A 0.7 % (0-0.5); Lymphocytes Absolute Auto 0.39 K/mm3 (0.9-3.2); Lymphocytes Percent Auto 4.4 % (18.3-44.2); Mean Corpuscular HGB Conc 34.3 g/dl (32-36); Mean Corpuscular Volume 87.6 fl (80-100); Mean Platelet Volume 11.3 fl (7.4-10.4); Monocytes Absolute Auto 1.1 K/mm3 (0.1-0.6); Monocytes Percent Auto 12.9 % (2.6-8.5); Neutrophils Absolute Auto 7.2 K/mm3 (1.3-6.7); Neutrophils Percent Auto 81.9 % (45.5-73.1); Platelet Count Result 125 k/mm3 (150-375); Red Cell Distribution Width 13.5 % (11.5-14.5); White Blood Count 8.8 K/mm3 (4.5-10.0)
[2020-09-02 13:40] LABS: Alanine Aminotransferase 18 U/L (4-50); Albumin Level 3.8 g/dL (3.5-5.1); Alkaline Phosphatase 71 U/L (38-126); Anion Gap 10 mmol/L (8-16); Aspartate Amino Transferase 19 U/L (17-59); Bilirubin,Total 0.8 mg/dL (0.2-1.3); Blood Urea Nitrogen 32 mg/dL (9-20); Calcium 8.6 mg/dL (8.4-10.2); Carbon Dioxide 28 mmol/L (22-30); Chloride 99 mmol/L (98-107); Estimated CRCL calculation 17 ml/min; Estimated Glomerular Filt Rate 11; Glucose 185 mg/dL (65-110); Lipase 79 U/L (23-300); Potassium 3.9 mmol/L (3.4-5.0); Sodium 137 mmol/L (137-145)
--- NOTE | 2020-09-02 14:33 | PC.NURSE ---
Patient attempted to urinate in urinal, patient unaware that lid was still on top of urinal and urinated on the floor. Advised patient we still will need a urine specimen, and urine was cleaned up at this time.
[2020-09-02 14:56] LABS: Add Urine Microscopic? YES; Amorphous Sediment Urine Few; Appearance Urine Cloudy (Clear); Bacteria Urine Trace /hpf; Bilirubin Urine Negative (Negative); Blood Urine Negative (Negative); Color Urine Yellow (Yellow); Glucose Urine UA Negative (Negative); Ketones Urine Negative (Negative); Leukocyte Esterase Ur Negative LEU/UL (Negative); Nitrate Urine Negative (Negative); Protein Urine 2+ mg/dL (Negative); RBC Urine 0-2 /hpf (0-2); Specific Grav Ur 1.016 (1.001-1.035); Squamous Epithelial Cell Urine Rare /hpf (Few); Urobilinogen Urine Negative mg/dL (<2.0)
--- NOTE | 2020-09-02 15:34 | PC.NURSE ---
Patient c/o recurring abdominal pain, Dr. Holman notified. Awaiting new orders.
== END 2020-09-02 16:35 | disposition left against medical advice (07) ==
PROVIDERS: Emergency Provider General Practice; PCP Family Medicine
DX: R10.9 Unspecified abdominal pain (principal); K66.8 Other specified disorders of peritoneum; E11.22 Type 2 diabetes mellitus with diabetic chronic kidney disease; I12.0 Hypertensive chronic kidney disease with stage 5 chronic kidney disease or end stage renal disease; N18.6 End stage renal disease; Z99.2 Dependence on renal dialysis; Z79.4 Long term (current) use of insulin; Z79.82 Long term (current) use of aspirin; K21.9 Gastro-esophageal reflux disease without esophagitis; E78.00 Pure hypercholesterolemia, unspecified; G47.33 Obstructive sleep apnea (adult) (pediatric); Z90.5 Acquired absence of kidney; Z98.42 Cataract extraction status, left eye; Z96.651 Presence of right artificial knee joint; R93.2 Abnormal findings on diagnostic imaging of liver and biliary tract; N28.89 Other specified disorders of kidney and ureter
CPT/HCPCS: 36415; 74018; 74176; 80053; 81001; 83690; 85025; 85055; 96361; 96374; 96375; 96376; 99284; J1170; J2405; J7040

== ENCOUNTER 2021-03-15 10:08 | Outpatient (RCR) | payer MEDICARE, SELFPAY ==
[2021-03-15 10:36] VITALS: BP 121/60; PULSE 70; TEMP 36.2; O2SAT 100
[2021-03-15] MEDS: ACETAMINOPHEN 325 MG TABLET 650 MG PO (10:43)
[2021-03-15] MEDS: FAMOTIDINE 20 MG TABLET PO (10:43)
[2021-03-15] MEDS: diphenhydrAMINE HCl CAP 25 MG CAPSULE PO (10:44)
[2021-03-15 12:01] VITALS: BP 125/66; PULSE 68; O2SAT 100
== END 2021-03-15 16:00 ==
LOC: AMCINF 10:08
PROVIDERS: PCP Internal Medicine Nephrology; Visit Provider Internal Medicine Hematology & Oncology
DX: U07.1 COVID-19 (principal); N18.9 Chronic kidney disease, unspecified
CPT/HCPCS: A9270; M0247; Q0247

== ENCOUNTER 2021-03-19 17:27 | Emergency (ER) | payer MEDICARE, SELFPAY ==
[2021-03-19] VITALS (9 sets, daily range): BP systolic 127–149; BP diastolic 64–85; PULSE 65–79; RESP 15–18; TEMP 36.3; O2SAT 98–100
--- NOTE | ~2021-03-19 | CT_ITS ---
EXAMINATION: CT brain wo con EXAM DATE: 03/19/2021 19:31 INDICATION: Dizziness. TECHNIQUE: Spiral CT of the head was performed without contrast. Axial, coronal and sagittal images were reviewed. The dose-length product (DLP) for this examination was 681.00 mGy-cm. The exposure w as tailored according to patient size, and iterative reconstruction (ASIR) was used as additional dos e reduction technique. There is no prior study for comparison. FINDINGS: Mild enlargement of the pituitary gland without focal cystic region, mildly bulging out of the sella turcica without mass effect on the optic chiasm. There is also some extension into the righ t sphenoid sinus with bony remodeling. Mild microangiopathy and cerebral atrophy. There is no acute i ntraparenchymal hemorrhage. No evidence of acute infarction. There is no mass effect or midline juan ft. The ventricles are normal in size. There are no extra-axial collections. There are no acute ca lvarial fractures. Patient has had left-sided ocular lens surgery. Soft tissue is unremarkable. Th e visualized sinuses and mastoid air cells are well aerated. IMPRESSION: 1. 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 No cystic component or calcification to suggest craniopharyngioma. This is a chronic finding and unrelated to patient's acute symptoms. Pi tuitary MRI would be best for evaluating on nonemergent basis. 2. Mild age-related findings. Reviewed, dictated and finalized at location G. BAND OPERATOR IMPRESSION: 1. 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 No cystic compo nent or calcification to suggest craniopharyngioma. This is a chronic finding a nd unrelated to patient's acute symptoms. Pituitary MRI would be best for evalu ating on nonemergent basis. 2. Mild age-related findings.
--- NOTE | ~2021-03-19 | XR_ITS ---
EXAMINATION: XR chest 1V EXAM DATE: 03/19/2021 18:10 INDICATION: covid positive Since 03/12, Cough, Upper Cp, Dizziness . TECHNIQUE: Portable AP frontal chest x-ray was obtained. Comparison is made to prior examination from 06/02/2020. FINDINGS: Right upper lobe granuloma. The lungs are otherwise clear. There are no pleural effusions. The cardiomediastinal silhouette is within normal limits. There is no pneumothorax suspected. The bones and soft tissues are unremarkable. IMPRESSION: No acute cardiopulmonary findings. Reviewed, dictated and finalized at location G. EL INSPECTOR
--- NOTE | 2021-03-19 17:40 | ECG_ITS ---
Measurements Intervals [place] Rate: 69 P: 44 [place]: 160 QRS: -52 QRSD: 86 T: 18 QT: 457 QTc: 491 Interpretive Statements SINUS RHYTHM LEFT AXIS DEVIATION CANNOT RULE OUT SEPTAL INFARCT, AGE INDETERMINATE BORDERLINE T WAVE ABNORMALITY- INF/LAT LEADS ABNORMAL ECG Electronically Signed On 03-19-2021 20:40:51 COMMERCIAL CREDIT ANALYST by Dilan Preciado D.O.
[2021-03-19 18:23] LABS: Hematocrit 28.5 % (42.0-52.0); Hemoglobin 9.7 g/dL (14.0-18.0); Immature Granulocyte Absolute 0.06 K/mm3 (0.00-0.031); Immature Granulocyte Percent A 1.2 % (0-0.5); Lymphocytes Absolute Auto 0.81 K/mm3 (0.9-3.2); Lymphocytes Percent Auto 16.4 % (18.3-44.2); Mean Corpuscular Hemoglobin 30.6 pg (26-34); Mean Corpuscular Volume 89.9 fl (80-100); Mean Platelet Volume 11.1 fl (7.4-10.4); Monocytes Absolute Auto 0.6 K/mm3 (0.1-0.6); Monocytes Percent Auto 12.6 % (2.6-8.5); Neutrophils Absolute Auto 3.4 K/mm3 (1.3-6.7); Neutrophils Percent Auto 69.8 % (45.5-73.1); Platelet Count Result 132 k/mm3 (150-375); Red Blood Count 3.17 M/mm3 (4.6-6.20); Red Cell Distribution Width 13.6 % (11.5-14.5); White Blood Count 4.9 K/mm3 (4.5-10.0)
[2021-03-19 18:33] LABS: Partial Thromboplastin Time 27.9 SECONDS (22.3-36.8)
[2021-03-19 18:34] LABS: Alanine Aminotransferase 36 U/L (4-50); Albumin Level 4.3 g/dL (3.5-5.1); Alkaline Phosphatase 65 U/L (38-126); Anion Gap 13 mmol/L (8-16); Aspartate Amino Transferase 28 U/L (17-59); Bilirubin,Total 0.6 mg/dL (0.2-1.3); Blood Urea Nitrogen 43 mg/dL (9-20); Calcium 7.3 mg/dL (8.4-10.2); Carbon Dioxide 25 mmol/L (22-30); Chloride 95 mmol/L (98-107); Estimated CRCL calculation 9 ml/min; Estimated Glomerular Filt Rate 6; Glucose 153 mg/dL (65-110); Lipase 305 U/L (23-300); Potassium 3.4 mmol/L (3.4-5.0); Sodium 133 mmol/L (137-145)
[2021-03-19 18:47] LABS: Troponin I 0.029 ng/mL (0.000-0.034)
--- NOTE | 2021-03-19 19:16 | ED.CHESTPAIN ---
HPI - Chest Pain General Chief Complaint: Chest Pain <Charmaine Almanza PA-C - Last Filed: 03/23/21 10:19> Stated Complaint: COVID+ BODY ACHES <HENRY Reilly Last Filed: 03/23/21 10:19> Time Seen by Provider: 03/19/21 18:27 <Charmaine Almanza PA-C - Last Filed: 03/23/21 10:19> Source: patient <HENRY Reilly Last Filed: 03/23/21 10:19> Mode of arrival: wheelchair <Charmaine Almanza PA-C - Last Filed: 03/23/21 10:19> Limitations: no limitations <HENRY Reilly Last Filed: 03/23/21 10:19> History of Present Illness HPI narrative: This is a 66 year old male that presents to the ER as he is not feeling well. Reports he tested positive for COVID about a week ago. He has had cough and diarrhea. Reports shortness of breath that is around his baseline. Reports today he started to have lightheadedness, especially with standing. He has had some intermittent chest pain earlier today, but denies any currently. He is COVID vaccinated. Denies fever, abdominal pain, or lower extremity edema. <Charmaine Almanza PA-C - Last Filed: 03/23/21 10:19> Related Data Home Medications: Home Medications Medication Instructions Recorded Confirmed ICaps AREDS2 (copper citrate) 1 tablet PO BID 02/01/19 03/15/21 aspirin [Aspirin Low Dose] 81 mg PO DAILY 02/01/19 03/15/21 cholecalciferol (vitamin D3) 2,000 unit PO DAILY 02/01/19 03/15/21 sodium bicarbonate 650 mg PO BID 02/01/19 03/15/21 OneTouch Ultra Blue Test Strip 05/14/19 03/15/21 carvedilol 25 mg tablet 25 mg PO BID tablet 09/06/19 03/15/21 furosemide 40 mg tablet 80 mg PO BID tablet 09/06/19 03/15/21 minoxidil 2.5 mg tablet 2.5 mg PO BID 09/06/19 03/15/21 insulin glargine [Basaglar KwikPen 40 unit SUBCUT BID 09/02/20 03/15/21 U-100 Insulin] insulin lispro [Humalog U-100 See Rx Instructions .ROUTE .COMPLEX 09/02/20 03/15/21 Insulin] lisinopril 20 mg PO BID 09/02/20 03/15/21 <Charmaine Almanza PA-C - Last Filed: 03/23/21 10:19> Allergies/Adverse Reactions: Allergies Allergy/AdvReac Type Severity Reaction Status Date / Time No Known Allergies Allergy Unknown Verified 03/19/21 18:27 <Charmaine Almanza PA-C - Last Filed: 03/23/21 10:19> Review of Systems Review of Systems: CONSTITUTIONAL: Denies fever CARDIOVASCULAR: Denies chest pain, or edema. RESPIRATORY: Reports cough and dyspnea. GASTROINTESTINAL: Reports diarrhea. Denies abdominal pain, nausea, vomiting NEUROLOGIC: Denies numbness, or weakness. <Charmaine Almanza PA-C - Last Filed: 03/23/21 10:19> All systems reviewed & are unremarkable except as noted in HPI and below <Charmaine Almanza PA-C - Last Filed: 03/23/21 10:19> [facility] Past Medical History Medical History: Medical History (Updated 03/23/21 @ 10:19 by Charmaine Almanza PA-C) Chronic GERD Diabetes DM renal manif type II, uncontrolled ESRD (end stage renal disease) Hypercholesterolemia Hypertension SHABNAM (obstructive sleep apnea) Rhinitis <Charmaine Almanza PA-C - Last Filed: 03/23/21 10:19> Surgical History Surgical History: Surgical History History of cholecystectomy History of partial nephrectomy Status post left cataract extraction Status post right knee replacement <Charmaine Almanza PA-C - Last Filed: 03/23/21 10:19> Family History Family History: Family History Mother Hypertension Cerebrovascular accident Father Family history of malignant neoplasm Carcinoma of colon <Charmaine Almanza PA-C - Last Filed: 03/23/21 10:19> Social History Social History: Social History Smoking status: Never smoker Second hand tobacco smoke exposure: No Alcohol intake: current Alcohol use details: rare, holidays Substance use: never Substance use type: does not use Gender identity (if verbaliz
[2021-03-19 20:16] LABS: Lactic Acid Reflex 2.1 mmol/L (0.7-2.1)
[2021-03-19 20:19] LABS: CRP < 0.5 mg/dL (<1.0); Lactate Dehydrogenase 493 U/L (313-618)
[2021-03-19 21:28] LABS: Troponin I 0.034 ng/mL (0.000-0.034)
[2021-03-19] MEDS: SODIUM CHLORIDE 0.9% IV 500 ML 250 ML IV CONT (21:35)
[2021-03-19 23:02] LABS: Reflex Lactic Acid Yes or No Add Lactic
[2021-03-20 00:08] VITALS: BP 149/82; PULSE 66; RESP 14; O2SAT 99
== END 2021-03-20 00:08 | disposition home or self-care (01) ==
PROVIDERS: Emergency Medicine; Physician Assistant; Emergency Provider Emergency Medicine; PCP Internal Medicine Nephrology
DX: U07.1 COVID-19 (principal); A09 Infectious gastroenteritis and colitis, unspecified; R42 Dizziness and giddiness; D35.2 Benign neoplasm of pituitary gland; E11.22 Type 2 diabetes mellitus with diabetic chronic kidney disease; I12.0 Hypertensive chronic kidney disease with stage 5 chronic kidney disease or end stage renal disease; N18.6 End stage renal disease; E78.00 Pure hypercholesterolemia, unspecified; G47.33 Obstructive sleep apnea (adult) (pediatric); K21.9 Gastro-esophageal reflux disease without esophagitis; Z79.82 Long term (current) use of aspirin; Z79.4 Long term (current) use of insulin; Z90.5 Acquired absence of kidney; Z98.42 Cataract extraction status, left eye; Z96.651 Presence of right artificial knee joint; R94.31 Abnormal electrocardiogram [ECG] [EKG]
CPT/HCPCS: 36415; 70450; 71045; 80053; 82728; 83605; 83615; 83690; 84484; 85025; 85610; 85730; 86140; 93005; 96360; 96361; 99284; J7040

== ENCOUNTER → 2021-03-21 15:38 | Outpatient (CLI) | payer MEDICARE, SELFPAY ==
--- NOTE | ~2021-03-21 | XR_ITS ---
EXAMINATION: XR abdomen/kub 1V EXAM DATE: 03/21/2021 16:00 INDICATION: Acute abdominal pain. History kidney cancer. Dialysis catheter. TECHNIQUE: Frontal projection(s) of the abdomen for interpretation. Comparison is made to prior exami nation from 09/02/2020. FINDINGS: There is a peritoneal dialysis catheter. Expected amount of colonic stool and gas. No small bowel dilation, no obstruction suspected. There are cholecystectomy clips. There is no organomegaly. IMPRESSION: Nonobstructive bowel gas pattern. Reviewed, dictated and finalized at location G. LASS CUTTER
== END ==
PROVIDERS: PCP Internal Medicine Nephrology; Visit Provider Internal Medicine Nephrology
DX: R10.0 Acute abdomen (principal)
CPT/HCPCS: 74018

== ENCOUNTER 2021-03-27 10:49 | Emergency (ER) | payer MEDICARE, SELFPAY ==
[2021-03-27] VITALS (31 sets, daily range): BP systolic 76–144; BP diastolic 44–72; PULSE 60–88; RESP 10–22; TEMP 36.9; O2SAT 96–100
--- NOTE | ~2021-03-27 | NM_ITS ---
EXAMINATION: NM pulmonary perfusion EXAM DATE: 03/27/2021 14:33 INDICATION: shortness of breath . TECHNIQUE: A perfusion lung scan was performed. The patient was injected with 5.4 mCi technetium 99m MAA and imaged. The Modified PIOPED 2 criteria used for interpretation of this perfusion only study, with 3 possible interpretations (PE present, PE absent, nondiagnostic) based on findings present, an d correlated with a recent chest x-ray. More specifically, a high probability scan will be interprete d as pulmonary embolism present. A normal or near normal scan will be interpreted as pulmonary emboli sm absent. And finally an 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 probability scan will be interpreted as nondiagnostic. Correl ation is made to chest x-ray obtained earlier same date. FINDINGS: There is relatively homogeneous perfusion throughout the lungs, no focal segmental defects. Near normal perfusion scan. IMPRESSION: PE absent. Reviewed, dictated and finalized at location B. URETOR MECHANIC IMPRESSION: PE absent.
--- NOTE | ~2021-03-27 | XR_ITS ---
EXAMINATION: XR chest 1V portable DATE: 03/27/2021 11:54 INDICATION: Cough and dyspnea. TECHNIQUE: frontal view of the chest was obtained. COMPARISON: Chest radiograph dated 03/19/2021 FINDINGS: Calcite nodules in the right upper lung zone consistent with old granulomatous disease. No other airs pace opacities, pulmonary edema, pleural effusion or pneumothorax. The cardiomediastinal silhouette i s normal. IMPRESSION: 1. No acute cardiopulmonary disease. Reviewed, dictated and finalized at location A. ICAL ACCOUNT MANAGER
--- NOTE | 2021-03-27 11:08 | ECG_ITS ---
Measurements Intervals [place] Rate: 71 P: 15 [place]: 150 QRS: -66 QRSD: 137 T: 31 QT: 485 QTc: 528 Interpretive Statements SINUS RHYTHM RIGHT BUNDLE BRANCH BLOCK LEFT ANTERIOR FASCICULAR BLOCK ABNORMAL ECG Electronically Signed On 04-02-2021 13:22:19 BUSINESS CONTROL MANAGER by Dilan Preciado D.O.
--- NOTE | 2021-03-27 11:16 | ED.SOB ---
HPI - SOB/Dyspnea General Chief Complaint: Shortness of Breath/Dyspnea Stated Complaint: low o2, lightheaded, cough Time Seen by Provider: 03/27/21 11:04 Source: RN notes reviewed History of Present Illness HPI Narrative: Patient presents emergency room from home for shortness of breath. Patient states he was diagnosed with COVID-19 on March 12. He states he had with Covid vaccinations he did receive monoclonal antibodies as well he states that over the past several days has been having O2 readings at home that have been reading down into the 70s he states been associate with intermittent shortness of breath he denies any fevers or chills he notes intermittent nausea and vomiting he denies any chest pain or abdominal pain patient states he has a peritoneal dialysis patient followed by Dr. Mccall with last peritoneal dialysis last night Related Data Home Medications Medication Instructions Recorded Confirmed ICaps AREDS2 (copper citrate) 1 tablet PO BID 02/01/19 03/15/21 aspirin [Aspirin Low Dose] 81 mg PO DAILY 02/01/19 03/15/21 cholecalciferol (vitamin D3) 2,000 unit PO DAILY 02/01/19 03/15/21 sodium bicarbonate 650 mg PO BID 02/01/19 03/15/21 OneTouch Ultra Blue Test Strip 05/14/19 03/15/21 carvedilol 25 mg tablet 25 mg PO BID tablet 09/06/19 03/15/21 furosemide 40 mg tablet 80 mg PO BID tablet 09/06/19 03/15/21 minoxidil 2.5 mg tablet 2.5 mg PO BID 09/06/19 03/15/21 insulin glargine [Basaglar KwikPen 40 unit SUBCUT BID 09/02/20 03/15/21 U-100 Insulin] insulin lispro [Humalog U-100 See Rx Instructions .ROUTE .COMPLEX 09/02/20 03/15/21 Insulin] lisinopril 20 mg PO BID 09/02/20 03/15/21 Allergies Allergy/AdvReac Type Severity Reaction Status Date / Time No Known Allergies Allergy Unknown Verified 03/19/21 18:27 Review of Systems Review of Systems: Gen.: Denies fevers or chills ENT: Denies congestion Respiratory: HPI CV: Denies chest pain or palpitations GI: Denies abdominal pain or diarrhea reports intermittent nausea and vomiting Musculoskeletal: Denies back pain or muscle pain Neuro: Denies numbness, tingling, weakness or focal weakness Skin: Denies rash Except as documented, all other systems reviewed and negative [facility] Past Medical History Medical History Chronic GERD Diabetes DM renal manif type II, uncontrolled ESRD (end stage renal disease) Hypercholesterolemia Hypertension SHABNAM (obstructive sleep apnea) Rhinitis Surgical History Surgical History History of cholecystectomy History of partial nephrectomy Status post left cataract extraction Status post right knee replacement Family History Family History Mother Hypertension Cerebrovascular accident Father Family history of malignant neoplasm Carcinoma of colon Social History Social History Smoking status: Never smoker Second hand tobacco smoke exposure: No Alcohol intake: current Alcohol use details: rare, holidays Substance use: never Substance use type: does not use Gender identity (if verbalized by the patient): Male Sexual Orientation (if Verbalized by the Patient): Straight or Heterosexual Spiritual care concerns: No Agree to blood products: Yes Exam Narrative: APPEARANCE: No acute distress, nontoxic, resting in bed EYES: EOMI HEENT: Normocephalic, atraumatic, OMM RESPIRATORY: No respiratory distress Clear to auscultation bilaterally with no rhonchi wheezing or rales. CARDIOVASCULAR: Regular rate and rhythm without murmurs rubs or gallops. ABDOMINAL: Soft, nontender, nondistended, no rebound or guarding MUSCULOSKELETAl: Moves all extremities. No clubbing, cyanosis or edema. NEURO: Awake and alert. Following commands, speech normal, no focal deficits SKIN:: Warm, dry. No rashes lesions o
[2021-03-27 11:25] LABS: Hematocrit 28.6 % (42.0-52.0); Hemoglobin 9.6 g/dL (14.0-18.0); Immature Granulocyte Absolute 0.09 K/mm3 (0.00-0.031); Immature Granulocyte Percent A 1.3 % (0-0.5); Lymphocytes Absolute Auto 0.72 K/mm3 (0.9-3.2); Lymphocytes Percent Auto 10.1 % (18.3-44.2); Mean Corpuscular HGB Conc 33.6 g/dl (32-36); Mean Corpuscular Hemoglobin 30.1 pg (26-34); Mean Corpuscular Volume 89.7 fl (80-100); Mean Platelet Volume 10.8 fl (7.4-10.4); Monocytes Absolute Auto 1.1 K/mm3 (0.1-0.6); Monocytes Percent Auto 15.6 % (2.6-8.5); Neutrophils Absolute Auto 5.2 K/mm3 (1.3-6.7); Platelet Count Result 167 k/mm3 (150-375); Red Blood Count 3.19 M/mm3 (4.6-6.20); Red Cell Distribution Width 13.6 % (11.5-14.5); White Blood Count 7.1 K/mm3 (4.5-10.0)
[2021-03-27 11:40] LABS: Partial Thromboplastin Time 28.3 SECONDS (22.3-36.8)
[2021-03-27 11:43] LABS: Alanine Aminotransferase 23 U/L (4-50); Albumin Level 4.2 g/dL (3.5-5.1); Alkaline Phosphatase 89 U/L (38-126); Anion Gap 19 mmol/L (8-16); Aspartate Amino Transferase 18 U/L (17-59); Bilirubin,Total 0.5 mg/dL (0.2-1.3); Blood Urea Nitrogen 34 mg/dL (9-20); CRP < 0.5 mg/dL (<1.0); Calcium 7.8 mg/dL (8.4-10.2); Carbon Dioxide 25 mmol/L (22-30); Chloride 94 mmol/L (98-107); D Dimer 0.72 ug/mL (<0.48); Estimated CRCL calculation 9 ml/min; Estimated Glomerular Filt Rate 5; Glucose 176 mg/dL (65-110); Sodium 138 mmol/L (137-145)
[2021-03-27] MEDS: SODIUM CHLORIDE 0.9% IV 500 ML 999 ML IV CONT (11:52)
[2021-03-27] MEDS: POTASSIUM CHLORIDE 20 MEQ TABLET 40 MEQ PO (12:08)
[2021-03-27 12:15] LABS: Lactate Dehydrogenase 367 U/L (313-618)
--- NOTE | 2021-03-27 15:19 | PC.NURSE ---
Ambulatory in [place] with SPO2 100% with activity. Denies sob.
== END 2021-03-27 15:27 | disposition home or self-care (01) ==
PROVIDERS: Emergency Provider Emergency Medicine; PCP Internal Medicine Nephrology
DX: U07.1 COVID-19 (principal); I95.1 Orthostatic hypotension; E87.6 Hypokalemia; N18.6 End stage renal disease; I12.0 Hypertensive chronic kidney disease with stage 5 chronic kidney disease or end stage renal disease; E11.22 Type 2 diabetes mellitus with diabetic chronic kidney disease; Z99.2 Dependence on renal dialysis; G47.33 Obstructive sleep apnea (adult) (pediatric); E78.00 Pure hypercholesterolemia, unspecified; K21.9 Gastro-esophageal reflux disease without esophagitis; Z90.5 Acquired absence of kidney; Z98.42 Cataract extraction status, left eye; Z96.651 Presence of right artificial knee joint; Z79.4 Long term (current) use of insulin; Z79.82 Long term (current) use of aspirin
CPT/HCPCS: 36415; 71045; 78580; 80053; 83615; 85025; 85380; 85610; 85730; 86140; 93005; 96360; 99284; A9270; A9540; J7040

== ENCOUNTER → 2021-04-06 10:59 | Outpatient (CLI) | payer MEDICARE, SELFPAY ==
--- NOTE | ~2021-04-06 | US_ITS ---
EXAMINATION: US retroperitoneal comp DATE: 04/06/2021 11:50 INDICATION: Abnormal renal function TECHNIQUE: Multiple ultrasound grayscale images of the kidneys were obtained. COMPARISON: None. FINDINGS: The right kidney measures 8.7 x 6.7 x 5.7 cm. Multiple anechoic cysts in the right kidney, the larges t measuring 3.6 cm maximal diameter. The left kidney measures 14.2 x 6.8 x7.6 cm. There are also mult iple right renal cysts, the largest measuring up to 4.3 cm. One of the left renal cysts the lower sasha e of the left kidney demonstrates a thin internal septation. The kidneys demonstrate normal echogenic ity. There is no hydronephrosis in either kidney. No stones identified. The bladder is nearly decomp ressed with calculated end-diastolic volume of 11 mL and which limits evaluation. IMPRESSION: 1. Multiple bilateral renal cysts. No hydronephrosis. Reviewed, dictated and finalized at location A. E/M ENGINEER
== END ==
PROVIDERS: PCP Family Medicine; Visit Provider Internal Medicine Nephrology
DX: R94.4 Abnormal results of kidney function studies (principal); N28.1 Cyst of kidney, acquired
CPT/HCPCS: 76770

== ENCOUNTER 2021-04-29 08:25 | Observation (INO) | payer MEDICARE, SELFPAY ==
[2021-04-29] VITALS (19 sets, daily range): BP systolic 149–206; BP diastolic 66–88; PULSE 80–94; RESP 14–20; TEMP 36.1–38; O2SAT 97–100
--- NOTE | ~2021-04-29 | CT_ITS ---
EXAMINATION: CT abdomen pelvis wo con DATE: 04/29/2021 10:39 INDICATION: Left abdominal pain. Vomiting. Diarrhea. TECHNIQUE: Computed tomography (CT) of the abdomen and pelvis was performed without intravenous contr ast. Automated exposure control and iterative reconstruction technique were employed. The dose-length product was 1327.37 mGy-cm. COMPARISON: CT abdomen and pelvis 09/02/2020 FINDINGS: The visualized portions of the lung bases demonstrate minimal atelectasis. There is a 6 mm nodule in left lower lobe without change, can benign. No pleural effusion. The heart size is normal. Again seen is a small pericardial effusion. There are coronary artery calcifications. There is a cath eter tip in right [place]. The liver and spleen are normal. There are changes of cholecystectomy. The pa ncreas and adrenal glands are normal. There are changes of partial right nephrectomy. There are simpl e cysts in the kidneys measuring up to 4.4 cm on the left. There are subcentimeter hyperdense cysts i n right kidney. There are masses in left kidney measuring soft tissue attenuation measuring up to 3.6 cm. There are hemorrhagic cysts in left kidney measuring up to 3.8 cm. A peritoneal dialysis cathete r is noted. The prostate is moderately enlarged. There is liquid stool in the colon correlating with the symptom of diarrhea. The appendix is normal. There are bilateral inguinal hernias containing fat. There are no pathologically enlarged lymph nodes. There is no free intraperitoneal fluid. There are bridging endplate osteophytes at multiple levels in the spine, consistent with diffuse idiopathic ske letal hyperostosis (DISH). There is mild lumbar spondylosis. IMPRESSION: 1. Left kidney masses measuring up to 3.6 cm, which may be hemorrhagic cysts or neoplasm(s). Abdomen CT without and with contrast is recommended. 2. Chronic small pericardial effusion. Reviewed, dictated and finalized at location A.
[2021-04-29 08:56] LABS: Basophils Percent Auto 0.1 % (0.2-1.2); Hematocrit 30.1 % (42.0-52.0); Hemoglobin 10.3 g/dL (14.0-18.0); Immature Granulocyte Absolute 0.11 K/mm3 (0.00-0.031); Immature Granulocyte Percent A 1.1 % (0-0.5); Lymphocytes Percent Auto 2.9 % (18.3-44.2); Mean Corpuscular HGB Conc 34.2 g/dl (32-36); Mean Corpuscular Hemoglobin 30.4 pg (26-34); Mean Corpuscular Volume 88.8 fl (80-100); Mean Platelet Volume 10.9 fl (7.4-10.4); Monocytes Percent Auto 9.3 % (2.6-8.5); Neutrophils Absolute Auto 8.9 K/mm3 (1.3-6.7); Neutrophils Percent Auto 86.6 % (45.5-73.1); Platelet Count Result 145 k/mm3 (150-375); Red Blood Count 3.39 M/mm3 (4.6-6.20); Red Cell Distribution Width 13.5 % (11.5-14.5); White Blood Count 10.3 K/mm3 (4.5-10.0)
--- NOTE | 2021-04-29 09:02 | PC.NURSE ---
Patient states he is unable to urinate.
[2021-04-29 09:05] LABS: Alanine Aminotransferase 25 U/L (4-50); Albumin Level 4.6 g/dL (3.5-5.1); Alkaline Phosphatase 83 U/L (38-126); Anion Gap 13 mmol/L (8-16); Aspartate Amino Transferase 28 U/L (17-59); Bilirubin,Total 0.9 mg/dL (0.2-1.3); Blood Urea Nitrogen 31 mg/dL (9-20); Calcium 8.8 mg/dL (8.4-10.2); Carbon Dioxide 26 mmol/L (22-30); Chloride 101 mmol/L (98-107); Estimated CRCL calculation 18 ml/min; Estimated Glomerular Filt Rate 12; Glucose 171 mg/dL (65-110); Lipase 258 U/L (23-300); Potassium 4.6 mmol/L (3.4-5.0); Sodium 140 mmol/L (137-145)
--- NOTE | 2021-04-29 09:18 | ED.NAVMDI ---
HPI - Nausea/Vomiting/Diarrhea General Chief complaint: Nausea/Vomiting/Diarrhea <Charmaine Almanza PA-C - Last Filed: 04/29/21 19:35> Stated complaint: diarrhea <HENRY Reilly Last Filed: 04/29/21 19:35> Time Seen by Provider: 04/29/21 09:13 <Charmaine Almanza PA-C - Last Filed: 04/29/21 19:35> Source: patient <HENRY Reilly Last Filed: 04/29/21 19:35> Mode of arrival: ambulatory <HENRY Reilly Last Filed: 04/29/21 19:35> Limitations: no limitations <HENRY Reilly Last Filed: 04/29/21 19:35> History of Present Illness HPI Narrative: This is a 66-year-old male that presents to the emergency department for nausea, vomiting and diarrhea. Ongoing since this morning. Associated with burning left-sided abdominal pain. Denies fever, cough, sore throat, or shortness of breath. <HENRY Reilly Last Filed: 04/29/21 19:35> Related Data Home medications: Home Medications Medication Instructions Recorded Confirmed ICaps AREDS2 (copper citrate) 1 tablet PO BID 02/01/19 04/29/21 aspirin [Aspirin Low Dose] 81 mg PO DAILY 02/01/19 04/29/21 cholecalciferol (vitamin D3) 2,000 unit PO DAILY 02/01/19 04/29/21 sodium bicarbonate 650 mg PO BID 02/01/19 04/29/21 OneTouch Ultra Blue Test Strip 05/14/19 04/29/21 carvedilol 25 mg tablet 25 mg PO HS tablet 09/06/19 04/29/21 furosemide 40 mg tablet 80 mg PO BID tablet 09/06/19 04/29/21 minoxidil 2.5 mg tablet 5 mg PO DAILY 09/06/19 04/29/21 Basaglar KwikPen U-100 Insulin 55 unit SUBCUT BID 09/02/20 04/29/21 insulin lispro [Humalog U-100 See Rx Instructions .ROUTE .COMPLEX 09/02/20 04/29/21 Insulin] lisinopril 40 mg PO HS 09/02/20 04/29/21 carvedilol 50 mg PO DAILY 04/29/21 04/29/21 clopidogrel 75 mg PO DAILY 04/29/21 04/29/21 glipizide 10 mg PO BID 04/29/21 04/29/21 minoxidil 2.5 mg PO HS 04/29/21 04/29/21 pantoprazole 40 mg PO DAILY 04/29/21 04/29/21 sevelamer carbonate 800 mg PO AC 04/29/21 04/29/21 trazodone 50 mg PO HS 04/29/21 04/29/21 <Charmaine Almanza PA-C - Last Filed: 04/29/21 19:35> Allergies/Adverse reactions: Allergies Allergy/AdvReac Type Severity Reaction Status Date / Time No Known Allergies Allergy Unknown Verified 05/12/21 06:11 <Charmaine Almanza PA-C - Last Filed: 04/29/21 19:35> Review of Systems Review of Systems: CONSTITUTIONAL: Denies fever CARDIOVASCULAR: Denies chest pain, or edema. RESPIRATORY: Denies dyspnea. GASTROINTESTINAL: Reports abdominal pain, nausea, vomiting, and diarrhea. <Charmaine Almanza PA-C - Last Filed: 04/29/21 19:35> All systems reviewed & are unremarkable except as noted in HPI and below <Charmaine Almanza PA-C - Last Filed: 04/29/21 19:35> [facility] Past Medical History Medical History: Medical History Chronic GERD Diabetes DM renal manif type II, uncontrolled ESRD (end stage renal disease) Hypercholesterolemia Hypertension SHABNAM (obstructive sleep apnea) Rhinitis <Charmaine Almanza PA-C - Last Filed: 04/29/21 19:35> Surgical History Surgical History: Surgical History History of cholecystectomy History of partial nephrectomy Status post left cataract extraction Status post right knee replacement Stented coronary artery <Charmaine Almanza PA-C - Last Filed: 04/29/21 19:35> Family History Family History: Family History Mother Hypertension Cerebrovascular accident Father Family history of malignant neoplasm Carcinoma of colon <Charmaine Almanza PA-C - Last Filed: 04/29/21 19:35> Social History Social History: Social History Social History: Patient lives at home with his Harriet who will be his surrogate. Patient a nonsmoker and drinks very rarely they deny having any pets and patient
[2021-04-29 09:38] LABS: Ovalocytes 1+ (NORMAL); Platelet Estimate Adequate (Adequate); Tear Drop Cells 1+ (NORMAL)
[2021-04-29] MEDS: ONDANSETRON INJ 4 MG/2 ML VIAL IV PUSH (09:41)
[2021-04-29] MEDS: SODIUM CHLORIDE 0.9% IV 500 ML 999 ML IV CONT (09:41)
[2021-04-29 10:26] LABS: Add Urine Microscopic? YES; Appearance Urine Cloudy (Clear); Bilirubin Urine Negative (Negative); Color Urine Yellow (Yellow); Glucose Urine UA Negative (Negative); Ketones Urine Negative (Negative); Leukocyte Esterase Ur 2+ LEU/UL (Negative); Mucus Urine Rare /lpf; Nitrate Urine Negative (Negative); Protein Urine 3+ mg/dL (Negative); Specific Grav Ur 1.014 (1.001-1.035); Squamous Epithelial Cell Urine Rare /hpf (Few); Urobilinogen Urine Negative mg/dL (<2.0); WBC Urine 21-30 /hpf
[2021-04-29 10:27] LABS: Blood Urine Negative (Negative)
[2021-04-29] MEDS: METOCLOPRAMIDE HCL INJ 10 MG/2 ML VIAL 5 MG IV PUSH (12:13)
[2021-04-29] MEDS: diphenhydrAMINE HCl INJ 50 MG/ML VIAL 25 MG IV PUSH (12:14)
--- NOTE | 2021-04-29 14:28 | PM.IMHP ---
H&P: HPI History of Present Illness Date/Time: 04/29/21 14:28 Chief Complaint: Nausea vomiting diarrhea Narrative: Patient is a 66 year old male with a past medical history of GERD, diabetes, end-stage renal disease on hemodialysis, hypercholesterolemia, hypertension, SHABNAM who presented to the ED with nausea, vomiting, diarrhea since 4:00 a.m. patient stated that lately he has been very dizzy and lightheaded. He has also been having severe left lower quadrant pain that he states is burning in nature. Patient stated that he woke up at 4:00 a.m. this morning, and it started with diarrhea. Patient stated he had a total of about 12 episodes of diarrhea and 3 episodes of vomiting with multiple episodes of dry heaving. Patient stated that he tried taking some aspirin for the headache that he has had and Imodium. Neither 1 of those have worked. Patient stated that he has been very weak and tired and he is abdominal pain which he rates a 7-8/10. Patient denies having any nausea, vomiting, constipation, chest pain, shortness of breath. Patient did say he was experiencing a little bit of numbness and tingling. He also stated that he feels like the diarrhea is getting worse. He denies having any lower extremity swelling, falls, loss of consciousness, sweat, fevers, chills. Patient also denies any palpitations. Patient's last meal consisted of coronary, which was last evening. Patient did have an MRI at 1 his previous admissions that did show a pituitary tumor and has been worked up and is seeing outpatient neurosurgeon. Patient's was also present and stated that the lightheadedness and dizziness he has been battling for a while. She also stated that the patient has had a recent stent placement back in July and August of last year. Which was done by [facility] [place] [facility] [place] Patient also stated that he does hemodialysis Tuesdays, , Saturdays at [facility] did state that his last dialysis was yesterday. Patient sees Dr. Mccall who manages the patient's blood pressure and dialysis treatments. Patient did state that his blood pressure runs high typically about 150/85-90. Patient also stated that his glucose has been very stable between 80 and 140. Patient is being admitted to the hospitalist service under observation. Review of Systems Review of Systems: All systems reviewed & are unremarkable except as noted in HPI and below [facility] Past Medical History Medical History (Updated 04/29/21 @ 15:08 by SIRI Cleveland) Chronic GERD Diabetes DM renal manif type II, uncontrolled ESRD (end stage renal disease) Hypercholesterolemia Hypertension SHABNAM (obstructive sleep apnea) Rhinitis Surgical History Surgical History (Updated 04/29/21 @ 14:40 by SIRI Cleveland) History of cholecystectomy History of partial nephrectomy Status post left cataract extraction Status post right knee replacement Stented coronary artery Family History Family History Mother Hypertension Cerebrovascular accident Father Family history of malignant neoplasm Carcinoma of colon Social History Social History (Updated 04/29/21 @ 14:53 by SIRI Cleveland) Social History: Patient lives at home with his Harriet who will be his surrogate. Patient a nonsmoker and drinks very rarely they deny having any pets and patient is Zoroastrian. Patient wishes to be a full code at this time Smoking status: Never smoker Second hand tobacco smoke exposure: No Alcohol intake: current Alcohol use details: rare, holidays Substance use: never Substance use type: does not use Living arrangements: with family Occupation/Education: retired Gender identity (if verbalized by the patient): Male Sexual Orientation (if Verbalized by the Patient): Straight or Heterosexual Spiritual care concerns: No (Zoroastrian) Agree to blood products: Yes Meds Home Medications and Allergies Home Medica
--- NOTE | 2021-04-29 17:09 | ADMGEN ---
This patient, Kendall Carl, was admitted to Medical Room 247-. Patient/family oriented to hospital policies and general routines including ID bracelet, bed and alarms, visiting hours, pain management, procedures, bathroom and other care routines, personal items, smoking policy, room service/diet, and visiting hours. Information on how to activate the Rapid Response Team has been discussed. Patient/Family are encouraged to report perceived risks to care and to ask questions if they do not understand what they are told or what they should do.
[2021-04-29] MEDS: SEVELAMER CARBONATE 800 MG TABLET PO (17:39)
[2021-04-29] MEDS: OPTI-GEN TAB 1 TABLET PO (18:13)
[2021-04-29] MEDS: ACETAMINOPHEN 500 MG TABLET 1000 MG PO (18:13)
[2021-04-29 18:14] LABS: Glucose Point of Care 154 mg/dl (65-105)
[2021-04-29] MEDS: FUROSEMIDE 80 MG TABLET PO (18:14)
[2021-04-29] MEDS: SODIUM BICARBONATE TAB 650 MG TABLET PO (18:20)
[2021-04-29 19:16] LABS: Lactic Acid Reflex 2.4 mmol/L (0.7-2.1)
[2021-04-29] MEDS: ATORVASTATIN 40 MG TABLET 80 MG PO (20:56)
[2021-04-29] MEDS: lisinopriL 20 MG TABLET 40 MG PO (20:56)
[2021-04-29] MEDS: minoxidiL 2.5 MG TABLET PO (20:56)
[2021-04-29] MEDS: carvediloL 25 MG TABLET PO (20:56)
[2021-04-29] MEDS: traZODone HCL 50 MG TABLET PO (20:57)
[2021-04-29] MEDS: INSULIN GLARGINE (*BKC) 100 UNITS/ML 55 UNITS SUB-Q (21:00)
[2021-04-29] MEDS: HYDROcodone/acetaminophen (*CRX) 5-325 MG TABLET 1 TAB PO (21:07)
[2021-04-29 21:19] LABS: Glucose Point of Care 154 mg/dl (65-105)
[2021-04-29 22:03] LABS: Reflex Lactic Acid Yes or No Add Lactic
[2021-04-29 22:23] LABS: Lactic Acid 2.7 mmol/L (0.7-2.1)
[2021-04-30] VITALS: PULSE 96
[2021-04-30 04:00] VITALS: PULSE 74
[2021-04-30 05:21] VITALS: BP 108/43; PULSE 74; RESP 18; TEMP 36.3; O2SAT 98
[2021-04-30] MEDS: LEVOTHYROXINE SODIUM 112 MCG TABLET PO (06:24)
[2021-04-30] MEDS: SEVELAMER CARBONATE 800 MG TABLET PO (06:24)
[2021-04-30 07:27] LABS: Glucose Point of Care 106 mg/dl (65-105)
[2021-04-30 08:04] VITALS: PULSE 81
--- NOTE | 2021-04-30 08:07 | PM.CNNEP ---
Assessment and Plan Additional Plan 1. The patient has end-stage renal disease. He is due for dialysis tomorrow. Volume status looks good. He has no swelling in his lungs are clear. His potassium is okay as well. I think he can wait till tomorrow for his dialysis. 2. The patient has nausea and vomiting for about 36 hours. He is has resolved now. I suspect this might be viral gastroenteritis. Hospitalist is evaluating this. 3. the patient has diabetes with eye involvement. He has an appointment with his eye doctor today at 2:30 a.m.. He is hoping he can get out of the hospital in time to go to the appointment. 4. Hypertension the patient's blood pressure is well controlled right now. Will continue his current medications. 5. The patient has anemia. He gets EPO with dialysis. He will get some tomorrow whether this is here or at [facility]. 6. Renal osteodystrophy will check a phosphorus tomorrow if he is still here History of Present Illness Reason for Consult Consult date: 04/30/21 Chief Complaint Chief complaint: Dehydration, UTI, Gastroenteritis, ESRD on dialysi History of Present Illness Narrative: Seth is a very pleasant 66-year-old gentleman who has multiple medical problems including end-stage renal disease on dialysis 3 times a week, formally on peritoneal dialysis and may transition back soon, hypertension, diabetes, coronary disease, hyperlipidemia, anemia of chronic kidney disease, renal osteodystrophy, hypothyroidism, sleeplessness, depression. The patient came in the hospital because he had nausea and vomiting which would not get better. This is been going on since Friday evening. In the ER yesterday he was evaluated. CT of the abdomen was done which did not show anything to explain his symptoms however did incidentally find left kidney masses. He has been getting a transplant evaluation at [facility] and had a thorough evaluation of those. The urologist's there are following him. Overnight the patient's symptoms got better in this morning he feels good and is eating breakfast. He that never did throw up any blood. He is not on any new medications. He did have a slightly high white count and some white cells in his urine. Urine culture is pending. He does not have any dysuria. The patient complains of some tingling and burning on the left side at the edge of the iliac wing. No change with urinating, defecating, eating, twisting, Bending over, or walking. This has been going on for 2 weeks. Review of Systems Constitutional: Constitutional: Reports no additional constitutional complaints Eyes: Eyes: Reports no additional eye complaints ENT: Reports system reviewed and no additional complaints, except as documented Cardiovascular: Cardiovascular: Reports no additional cardiovascular complaints Respiratory: Respiratory: Reports no additional respiratory complaints Gastrointestinal: Gastrointestinal: Reports no additional gastrointestinal complaints Genitourinary: Genitourinary: Reports no additional male genitourinary complaints Musculoskeletal: Musculoskeletal: Reports no additional musculoskeletal complaints Integumentary/Breasts: Skin/Breast: Reports system reviewed and no additional complaints, except as docu Neurologic: Reports system reviewed and no additional complaints, except as documented Psychiatric: Psychiatric: Reports no additional psychiatric complaints Endocrine: Endocrine: Reports no additional endocrine complaints PMFSH Past Medical History Medical History Chronic GERD Diabetes DM renal manif type II, uncontrolled ESRD (end stage renal disease) Hypercholesterolemia Hypertension SHABNAM (obstructive sleep apnea) Rhinitis Surgical History Surgical History History of cholecystectomy History of partial nephrectomy Status post left cataract e
[2021-04-30] MEDS: CHOLECALCIFEROL 1,000 UNITS TABLET 2000 UNITS PO (08:34)
[2021-04-30] MEDS: ENOXAPARIN 30 MG/0.3 ML SYRINGE SUB-Q (08:34)
[2021-04-30] MEDS: FUROSEMIDE 80 MG TABLET PO (08:34)
[2021-04-30] MEDS: CLOPIDOGREL BISULFATE 75 MG TABLET PO (08:35)
[2021-04-30] MEDS: SODIUM BICARBONATE TAB 650 MG TABLET PO (08:35)
[2021-04-30] MEDS: ASPIRIN 81 MG ENTERIC TABLET PO (08:35)
[2021-04-30] MEDS: glipiZIDE 5 MG TABLET 10 MG PO (08:35)
[2021-04-30 08:36] VITALS: PULSE 78
[2021-04-30] MEDS: carvediloL 25 MG TABLET 50 MG PO (08:36)
[2021-04-30] MEDS: OPTI-GEN TAB 1 TABLET PO (08:37)
[2021-04-30] MEDS: PANTOPRAZOLE 40 MG TABLET PO (08:37)
[2021-04-30] MEDS: minoxidiL 2.5 MG TABLET 5 MG PO (08:37)
[2021-04-30] MEDS: INSULIN GLARGINE (*BKC) 100 UNITS/ML 55 UNITS SUB-Q (08:40)
--- NOTE | 2021-04-30 10:46 | P.DS_ITS ---
DS: Admitting Diagnosis Discharge Date 04/30/2021 Admitting Diagnosis Nausea vomiting diarrhea DS: Discharge Diagnosis Discharge Diagnosis (1) Dizziness and giddiness: Code(s): R42 - Dizziness and giddiness Status: Acute Assessment and Plan: * Reports dizziness and lightheadedness resolved now * Seems to be chronic according to the (2) ESRD (end stage renal disease): Code(s): N18.6 - End stage renal disease Status: Acute Assessment and Plan: * Current BUN and creatinine 31/4.80 * Dr. Mccall consulted * Dialysis Friday, , Friday * Pt can be discharge as per nephrology * Pts CT scan shows Left kidney masses measuring up to 3.6 cm, which may be hemorrhagic cysts or neoplasm(s). Pt states he already had biopsy and work up for this. Pt sees Dr Mccall, nephrology, tomorrow in dialysis. (3) SHABNAM (obstructive sleep apnea): Code(s): G47.33 - Obstructive sleep apnea (adult) (pediatric) Status: Chronic Assessment and Plan: * CPAP titrate home settings (4) Hypertension: Code(s): I10 - Essential (primary) hypertension Status: Chronic Assessment and Plan: * Current blood pressure 108/48 * Continue home minoxidil 5 mg in the a.m. and 2.5 in the p.m., carvedilol 50 mg in the a.m. 25 in the p.m., lisinopril 40 mg at night (5) Pituitary tumor: Code(s): D49.7 - Neoplasm of unspecified behavior of endocrine glands and other parts of nervous system Status: Acute Assessment and Plan: * Patient states that outpatient MRI showed a pituitary tumor * Patient has been referred to a neurosurgeon for outpatient workup (6) Diabetes mellitus: Code(s): E11.9 - Type 2 diabetes mellitus without complications Status: Acute Assessment and Plan: * Glucose 17, glucose is stable * Continue insulin Lantus 55 units b.i.d. (7) Abdominal pain: Code(s): R10.9 - Unspecified abdominal pain Status: Acute Assessment and Plan: * Patient reports multiple episodes of diarrhea, vomiting * Patient reports a left lower quadrant pain * Pt had ct abdomen showing Left kidney masses measuring up to 3.6 cm, which may be hemorrhagic cyst (8) Hyperlipemia: Code(s): E78.5 - Hyperlipidemia, unspecified Status: Acute Assessment and Plan: * Triglycerides 1056, cholesterol 168, non HDL cholesterol 142, HDL 26 * Continue atorvastatin (9) Hypothyroid: Code(s): E03.9 - Hypothyroidism, unspecified Status: Acute Assessment and Plan: * Continue home levothyroxine 112 mcg q.a.m. * TSH in March is 3.69 (10) Urinary tract infection: Qualifiers: Hematuria presence: without hematuria Urinary tract infection type: acute cystitis Qualified Code(s): N30.00 - Acute cystitis without hematuria Code(s): N39.0 - Urinary tract infection, site not specified Status: Acute Assessment and Plan: Pt treated with iv rocephin awaiting UC UA is positive pt discharged with oral amoxicillin for 3 days. Pt states he will follow UC with Dr Mccall. DS: Summary Hospital Course Hospital Course: 66 year old male with a past medical history of GERD, diabetes, end-stage renal disease on hemodialysis, hypercholesterolemia, hypertension, SHABNAM who presented to the ED with nausea, vomiting, diarrhea since 4:00 a.m.
--- NOTE | 2021-04-30 10:46 | PM.DS ---
DS: Admitting Diagnosis Discharge Date 04/30/2021 Admitting Diagnosis Nausea vomiting diarrhea DS: Discharge Diagnosis Discharge Diagnosis (1) Dizziness and giddiness: Code(s): R42 - Dizziness and giddiness Status: Acute Assessment and Plan: Reports dizziness and lightheadedness resolved now Seems to be chronic according to the (2) ESRD (end stage renal disease): Code(s): N18.6 - End stage renal disease Status: Acute Assessment and Plan: Current BUN and creatinine 31/4.80 Dr. Mccall consulted Dialysis Friday, , Friday Pt can be discharge as per nephrology Pts CT scan shows Left kidney masses measuring up to 3.6 cm, which may be hemorrhagic cysts or neoplasm(s). Pt states he already had biopsy and work up for this. Pt sees Dr Mccall, nephrology, tomorrow in dialysis. (3) SHABNAM (obstructive sleep apnea): Code(s): G47.33 - Obstructive sleep apnea (adult) (pediatric) Status: Chronic Assessment and Plan: CPAP titrate home settings (4) Hypertension: Code(s): I10 - Essential (primary) hypertension Status: Chronic Assessment and Plan: Current blood pressure 108/48 Continue home minoxidil 5 mg in the a.m. and 2.5 in the p.m., carvedilol 50 mg in the a.m. 25 in the p.m., lisinopril 40 mg at night (5) Pituitary tumor: Code(s): D49.7 - Neoplasm of unspecified behavior of endocrine glands and other parts of nervous system Status: Acute Assessment and Plan: Patient states that outpatient MRI showed a pituitary tumor Patient has been referred to a neurosurgeon for outpatient workup (6) Diabetes mellitus: Code(s): E11.9 - Type 2 diabetes mellitus without complications Status: Acute Assessment and Plan: Glucose 17, glucose is stable Continue insulin Lantus 55 units b.i.d. (7) Abdominal pain: Code(s): R10.9 - Unspecified abdominal pain Status: Acute Assessment and Plan: Patient reports multiple episodes of diarrhea, vomiting Patient reports a left lower quadrant pain Pt had ct abdomen showing Left kidney masses measuring up to 3.6 cm, which may be hemorrhagic cyst (8) Hyperlipemia: Code(s): E78.5 - Hyperlipidemia, unspecified Status: Acute Assessment and Plan: Triglycerides 1056, cholesterol 168, non HDL cholesterol 142, HDL 26 Continue atorvastatin (9) Hypothyroid: Code(s): E03.9 - Hypothyroidism, unspecified Status: Acute Assessment and Plan: Continue home levothyroxine 112 mcg q.a.m. TSH in March is 3.69 (10) Urinary tract infection: Qualifiers: Hematuria presence: without hematuria Urinary tract infection type: acute cystitis Qualified Code(s): N30.00 - Acute cystitis without hematuria Code(s): N39.0 - Urinary tract infection, site not specified Status: Acute Assessment and Plan: Pt treated with iv rocephin awaiting UC UA is positive pt discharged with oral amoxicillin for 3 days. Pt states he will follow UC with Dr Mccall. DS: Summary Hospital Course Hospital Course: 66 year old male with a past medical history of GERD, diabetes, end-stage renal disease on hemodialysis, hypercholesterolemia, hypertension, SHABNAM who presented to the ED with nausea, vomiting, diarrhea since 4:00 a.m. patient stated that lately he has been very dizzy and lightheaded. He has also been having severe left lower quadrant pain that he states is burning in nature. Patient stated that he woke up at 4:00 a.m. this morning, and it started with diarrhea. Patient stated he had a total of about 12 episodes of diarrhea and 3 episodes of vomiting with multiple episodes of dry heaving. Patient stated that he tried taking some aspirin for the headache that he has had and Imodium. Neither 1 of those have worked. Patient stated that he has been very
== END 2021-04-30 11:21 | disposition home or self-care (01) ==
LOC: ANHED 14:38 → ANH2MED 19:28
PROVIDERS: Nurse Practitioner; Admitting Provider Internal Medicine; Emergency Provider Emergency Medicine; PCP Family Medicine; Visit Provider Family Medicine
DX: N30.00 Acute cystitis without hematuria (principal); R42 Dizziness and giddiness; I12.0 Hypertensive chronic kidney disease with stage 5 chronic kidney disease or end stage renal disease; E86.0 Dehydration; R11.2 Nausea with vomiting, unspecified; D49.7 Neoplasm of unspecified behavior of endocrine glands and other parts of nervous system; R10.32 Left lower quadrant pain; E11.22 Type 2 diabetes mellitus with diabetic chronic kidney disease; N18.6 End stage renal disease; D64.9 Anemia, unspecified; E78.5 Hyperlipidemia, unspecified; N25.0 Renal osteodystrophy; E03.9 Hypothyroidism, unspecified; E11.39 Type 2 diabetes mellitus with other diabetic ophthalmic complication; K21.9 Gastro-esophageal reflux disease without esophagitis; G47.33 Obstructive sleep apnea (adult) (pediatric); Z99.2 Dependence on renal dialysis; Z90.5 Acquired absence of kidney; Z95.5 Presence of coronary angioplasty implant and graft; Z79.82 Long term (current) use of aspirin; Z79.4 Long term (current) use of insulin; Z79.84 Long term (current) use of oral hypoglycemic drugs; Z79.02 Long term (current) use of antithrombotics/antiplatelets
CPT/HCPCS: 36415; 74176; 80053; 81001; 82948; 83605; 83690; 85025; 87086; 87088; 87804; 96361; 96365; 96372; 96375; 99285; A9270; G0378; J0131; J0696; J1200; J1650; J1815; J2405; J2765; J7040

== ENCOUNTER 2021-05-01 05:29 | Emergency (ER) | payer MEDICARE, SELFPAY ==
[2021-05-01 05:40] VITALS: BP 175/87; PULSE 77; RESP 20; TEMP 36.6; O2SAT 98; O2SAT 99
[2021-05-01 05:45] VITALS: O2SAT 95
[2021-05-01 05:46] VITALS: BP 175/84; PULSE 78; O2SAT 97
[2021-05-01 06:00] VITALS: PULSE 76; RESP 14; O2SAT 98
[2021-05-01 06:01] VITALS: BP 165/80; PULSE 77; RESP 8; O2SAT 96
--- NOTE | 2021-05-01 06:01 | ED.ABDPAIN ---
HPI - Abdominal Pain General Chief Complaint: Abdominal Pain Stated Complaint: left flank pain Time Seen by Provider: 05/01/21 05:37 Source: patient History of Present Illness HPI narrative: Patient presents with nausea vomiting diarrhea and abdominal pain. Patient was recently seen for this admitted and discharged yesterday; home he initially was feeling well but this morning had recurrence of his symptoms to return to the ER for further evaluation. Reports a burning sensation in his left lower quadrant there is no clear aggravating or alleviating factors just present. Reports he was diagnosed with a UTI but denies current urinary symptoms. Denies known sick contacts Related Data Home Medications Medication Instructions Recorded Confirmed ICaps AREDS2 (copper citrate) 1 tablet PO BID 02/01/19 04/29/21 aspirin [Aspirin Low Dose] 81 mg PO DAILY 02/01/19 04/29/21 cholecalciferol (vitamin D3) 2,000 unit PO DAILY 02/01/19 04/29/21 sodium bicarbonate 650 mg PO BID 02/01/19 04/29/21 OneTouch Ultra Blue Test Strip 05/14/19 04/29/21 carvedilol 25 mg tablet 25 mg PO HS tablet 09/06/19 04/29/21 furosemide 40 mg tablet 80 mg PO BID tablet 09/06/19 04/29/21 minoxidil 2.5 mg tablet 5 mg PO DAILY 09/06/19 04/29/21 Basaglar KwikPen U-100 Insulin 55 unit SUBCUT BID 09/02/20 04/29/21 insulin lispro [Humalog U-100 See Rx Instructions .ROUTE .COMPLEX 09/02/20 04/29/21 Insulin] lisinopril 40 mg PO HS 09/02/20 04/29/21 carvedilol 50 mg PO DAILY 04/29/21 04/29/21 clopidogrel 75 mg PO DAILY 04/29/21 04/29/21 glipizide 10 mg PO BID 04/29/21 04/29/21 minoxidil 2.5 mg PO HS 04/29/21 04/29/21 pantoprazole 40 mg PO DAILY 04/29/21 04/29/21 sevelamer carbonate 800 mg PO AC 04/29/21 04/29/21 trazodone 50 mg PO HS 04/29/21 04/29/21 Allergies Allergy/AdvReac Type Severity Reaction Status Date / Time No Known Allergies Allergy Unknown Verified 03/19/21 18:27 Review of Systems Review of Systems: CONSTITUTIONAL: Denies fever, chills, or sweats. EYES: Denies visual changes, redness, or discharge. ENT: Denies rhinorrhea, congestion, sore throat, or otalgia. CARDIOVASCULAR: Denies chest pain, palpitations, or edema. RESPIRATORY: Denies cough or dyspnea. GASTROINTESTINAL: Abdominal pain nausea vomiting diarrhea GENITOURINARY: Denies dysuria or hematuria. SKIN: Denies rash or itching. MUSCULOSKELETAL: Denies back pain, joint pain, or myalgia. NEUROLOGIC: Denies headache, numbness, dizziness, or weakness. PSYCHIATRIC: Denies anxiety or depression. All systems reviewed & are unremarkable except as noted in HPI and below PMFSH Past Medical History Medical History Chronic GERD Diabetes DM renal manif type II, uncontrolled ESRD (end stage renal disease) Hypercholesterolemia Hypertension SHABNAM (obstructive sleep apnea) Rhinitis Surgical History Surgical History History of cholecystectomy History of partial nephrectomy Status post left cataract extraction Status post right knee replacement Stented coronary artery Family History Family History Mother Hypertension Cerebrovascular accident Father Family history of malignant neoplasm Carcinoma of colon Social History Social History Social History: Patient lives at home with his Harriet who will be his surrogate. Patient a nonsmoker and drinks very rarely they deny having any pets and patient is Druze. Patient wishes to be a full code at this time Smoking status: Never smoker Second hand tobacco smoke exposure: No Alcohol intake: current Alcohol use details: rare, holidays Substance use: former Substance use type: does not use Gender identity (if verbalized by the patient): Male Sexual Orientation (if Verbalized by the Patient): Straight or Heterosexual Sp
[2021-05-01] MEDS: ONDANSETRON INJ 4 MG/2 ML VIAL IV PUSH (06:12)
[2021-05-01 06:21] LABS: Basophils Percent Auto 0.2 % (0.2-1.2); Hematocrit 31.7 % (42.0-52.0); Hemoglobin 10.4 g/dL (14.0-18.0); Immature Granulocyte Absolute 0.12 K/mm3 (0.00-0.031); Immature Granulocyte Percent A 2.1 % (0-0.5); Lymphocytes Absolute Auto 0.76 K/mm3 (0.9-3.2); Mean Corpuscular HGB Conc 32.8 g/dl (32-36); Mean Corpuscular Hemoglobin 30.1 pg (26-34); Mean Corpuscular Volume 91.9 fl (80-100); Mean Platelet Volume 11.4 fl (7.4-10.4); Monocytes Percent Auto 17.8 % (2.6-8.5); Neutrophils Absolute Auto 3.9 K/mm3 (1.3-6.7); Neutrophils Percent Auto 66.9 % (45.5-73.1); Platelet Count Result 150 k/mm3 (150-375); Red Blood Count 3.45 M/mm3 (4.6-6.20); Red Cell Distribution Width 13.5 % (11.5-14.5); White Blood Count 5.8 K/mm3 (4.5-10.0)
[2021-05-01 06:36] LABS: Lactic Acid Reflex 1.6 mmol/L (0.7-2.1)
[2021-05-01 06:37] LABS: Alanine Aminotransferase 23 U/L (4-50); Albumin Level 4.3 g/dL (3.5-5.1); Alkaline Phosphatase 86 U/L (38-126); Anion Gap 16 mmol/L (8-16); Aspartate Amino Transferase 28 U/L (17-59); Bilirubin,Total 0.6 mg/dL (0.2-1.3); Blood Urea Nitrogen 53 mg/dL (9-20); Calcium 8.4 mg/dL (8.4-10.2); Carbon Dioxide 18 mmol/L (22-30); Chloride 105 mmol/L (98-107); Estimated CRCL calculation 11 ml/min; Estimated Glomerular Filt Rate 7; Glucose 133 mg/dL (65-110); Lipase 195 U/L (23-300); Potassium 4.6 mmol/L (3.4-5.0); Sodium 139 mmol/L (137-145)
[2021-05-01] MEDS: ACETAMINOPHEN 500 MG TABLET 1000 MG PO (06:40)
[2021-05-01 06:46] LABS: Add Urine Microscopic? YES; Appearance Urine Cloudy (Clear); Bilirubin Urine Negative (Negative); Blood Urine 1+ (Negative); Color Urine Amber (Yellow); Glucose Urine UA Negative (Negative); Ketones Urine Negative (Negative); Leukocyte Esterase Ur Negative LEU/UL (Negative); Mucus Urine Rare /lpf; Nitrate Urine Negative (Negative); Protein Urine 2+ mg/dL (Negative); Specific Grav Ur 1.014 (1.001-1.035); Squamous Epithelial Cell Urine Rare /hpf (Few); Urobilinogen Urine Negative mg/dL (<2.0)
[2021-05-01 07:15] VITALS: BP 150/82; PULSE 74; RESP 16; TEMP 36.6; O2SAT 98
== END 2021-05-01 07:24 | disposition home or self-care (01) ==
PROVIDERS: Emergency Provider Emergency Medicine; PCP Family Medicine
DX: R11.2 Nausea with vomiting, unspecified (principal); R10.32 Left lower quadrant pain; K21.9 Gastro-esophageal reflux disease without esophagitis; E11.22 Type 2 diabetes mellitus with diabetic chronic kidney disease; I12.0 Hypertensive chronic kidney disease with stage 5 chronic kidney disease or end stage renal disease; N18.6 End stage renal disease; E78.00 Pure hypercholesterolemia, unspecified; Z90.5 Acquired absence of kidney; Z98.42 Cataract extraction status, left eye; Z96.651 Presence of right artificial knee joint; Z95.5 Presence of coronary angioplasty implant and graft; Z79.82 Long term (current) use of aspirin; Z79.4 Long term (current) use of insulin
CPT/HCPCS: 36415; 80053; 81001; 83605; 83690; 85025; 96374; 99284; A9270; J2405

== ENCOUNTER 2021-05-12 06:01 | Emergency (ER) | payer MEDICARE, SELFPAY ==
--- NOTE | ~2021-05-12 | CT_ITS ---
EXAMINATION: CT brain wo con DATE: 05/12/2021 06:48 INDICATION: Dizziness TECHNIQUE: Computed tomography (CT) of the head was performed without intravenous contrast. Sagittal and coronal reconstructions were performed. The mA was adjusted according to patient size. Iterative reconstruction technique was employed. The dose-length product was 681.00 mGy-cm. COMPARISON: head CT dated 03/19/2021 FINDINGS: No acute intracranial hemorrhage, acute infarction or abnormal extra axial fluid collection. There is mild scattered white matter hypoattenuation consistent with chronic small vessel ischemic disease. Dystrophic calcifications at the bilateral basal ganglia and bilateral cerebellar hemispheres. Symmet amanda prominence of the sulci consistent with mild age-appropriate diffuse cerebral volume loss. Ventri cles are normal and symmetric. No significant change in mild enlargement of the pituitary gland. [place] ges of left intraocular lens replacement. Mucosal thickening the bilateral ethmoid sinuses. The masto id air cells are normal. IMPRESSION: 1. No acute intracranial process. 2. 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 C onsider pre and postcontrast MRI for further evaluation. 3. Age-related changes including mild diffuse volume loss and mild scattered white matter hypoattenua tion consistent with chronic small vessel ischemic disease. Reviewed, dictated and finalized at location A. IMPRESSION: 1. No acute intracranial process. 2. Again seen is mild enlargement of the pituitary potentially related to a pit uitary macroadenoma. Consider pre and postcontrast MRI for further evaluation. 3. Age-related changes including mild diffuse volume loss and mild scattered wh ite matter hypoattenuation consistent with chronic small vessel ischemic diseas e.
[2021-05-12 06:07] VITALS: BP 158/76; PULSE 71; RESP 18; TEMP 36.6; O2SAT 100
--- NOTE | 2021-05-12 06:18 | ECG_ITS ---
Measurements Intervals [place] Rate: 67 P: 21 KS: 136 QRS: -44 QRSD: 102 T: 153 QT: 471 QTc: 498 Interpretive Statements SINUS RHYTHM MARKED LEFT AXIS DEVIATION [QRS AXIS < -30] MODERATE T-WAVE ABNORMALITY, CONSIDER LATERAL ISCHEMIA [-0.1+ mV T WAVE IN I/aVL/V5/V6] COMPARED TO ECG 03/27/2021 11:08:54 LEFT-AXIS DEVIATION NOW PRESENT Electronically Signed On 05-12-2021 8:42:05 CDT by Elroy Miranda M.D.
[2021-05-12 06:34] LABS: Hematocrit 26.5 % (42.0-52.0); Hemoglobin 9.1 g/dL (14.0-18.0); Immature Granulocyte Absolute 0.19 K/mm3 (0.00-0.031); Immature Granulocyte Percent A 2.3 % (0-0.5); Lymphocytes Absolute Auto 0.97 K/mm3 (0.9-3.2); Lymphocytes Percent Auto 11.8 % (18.3-44.2); Mean Corpuscular HGB Conc 34.3 g/dl (32-36); Mean Corpuscular Hemoglobin 30.3 pg (26-34); Mean Corpuscular Volume 88.3 fl (80-100); Mean Platelet Volume 11.1 fl (7.4-10.4); Monocytes Percent Auto 12.4 % (2.6-8.5); Neutrophils Percent Auto 73.5 % (45.5-73.1); Platelet Count Result 142 k/mm3 (150-375); Red Cell Distribution Width 13.6 % (11.5-14.5); White Blood Count 8.2 K/mm3 (4.5-10.0)
[2021-05-12 06:44] LABS: Alanine Aminotransferase 30 U/L (4-50); Albumin Level 4.2 g/dL (3.5-5.1); Alkaline Phosphatase 96 U/L (38-126); Anion Gap 10 mmol/L (8-16); Aspartate Amino Transferase 27 U/L (17-59); Bilirubin,Total 0.6 mg/dL (0.2-1.3); Blood Urea Nitrogen 26 mg/dL (9-20); Calcium 8.5 mg/dL (8.4-10.2); Carbon Dioxide 27 mmol/L (22-30); Chloride 100 mmol/L (98-107); Estimated CRCL calculation 16 ml/min; Estimated Glomerular Filt Rate 11; Glucose 158 mg/dL (65-110); Potassium 4.4 mmol/L (3.4-5.0); Sodium 137 mmol/L (137-145)
[2021-05-12 06:59] LABS: Troponin I 0.031 ng/mL (0.000-0.034)
--- NOTE | 2021-05-12 07:19 | ED.DIZZY ---
HPI - Dizziness General Chief Complaint: Dizziness Stated Complaint: dizzy, lightheaded X 2 days Time Seen by Provider: 05/12/21 07:01 Source: patient and RN notes reviewed Limitations: no limitations History of Present Illness HPI Narrative: 66-year-old male presented emerge department for evaluation of intermittent dizziness that is been occurring since yesterday. Patient states he did have some minor dizziness yesterday but that the symptoms did progress until this morning. States it feels more like a sense of movement rather than he is going to pass out. Patient states he has had no syncopal episodes. Patient states he does have some patient with this. Patient also does complain of blurred vision which she states has been persistent for the last few months. Patient does have a known pituitary tumor that is set to be removed on June 12. Patient also does have follow-up for his macular degeneration. Patient denies any acute changes in his vision. Patient is also complaining of left flank that has also been present for the last few months. Patient has had extended work-up for this and is awaiting follow-up with GI for this pain. Patient states the pain is improved after he has a bowel movement. Patient denies any acute change in his right flank pain. Patient does have dialysis Friday and Saturdays. Patient did not go to dialysis this morning due to his symptoms. Related Data Home Medications Medication Instructions Recorded Confirmed ICaps AREDS2 (copper citrate) 1 tablet PO BID 02/01/19 04/29/21 aspirin [Aspirin Low Dose] 81 mg PO DAILY 02/01/19 04/29/21 cholecalciferol (vitamin D3) 2,000 unit PO DAILY 02/01/19 04/29/21 sodium bicarbonate 650 mg PO BID 02/01/19 04/29/21 OneTouch Ultra Blue Test Strip 05/14/19 04/29/21 carvedilol 25 mg tablet 25 mg PO HS tablet 09/06/19 04/29/21 furosemide 40 mg tablet 80 mg PO BID tablet 09/06/19 04/29/21 minoxidil 2.5 mg tablet 5 mg PO DAILY 09/06/19 04/29/21 Basaglar KwikPen U-100 Insulin 55 unit SUBCUT BID 09/02/20 04/29/21 insulin lispro [Humalog U-100 See Rx Instructions .ROUTE .COMPLEX 09/02/20 04/29/21 Insulin] lisinopril 40 mg PO HS 09/02/20 04/29/21 carvedilol 50 mg PO DAILY 04/29/21 04/29/21 clopidogrel 75 mg PO DAILY 04/29/21 04/29/21 glipizide 10 mg PO BID 04/29/21 04/29/21 minoxidil 2.5 mg PO HS 04/29/21 04/29/21 pantoprazole 40 mg PO DAILY 04/29/21 04/29/21 sevelamer carbonate 800 mg PO AC 04/29/21 04/29/21 trazodone 50 mg PO HS 04/29/21 04/29/21 Allergies Allergy/AdvReac Type Severity Reaction Status Date / Time No Known Allergies Allergy Unknown Verified 05/12/21 06:11 Review of Systems Review of Systems: CONSTITUTIONAL: Denies fever, chills, or sweats. Dizziness EYES: Denies acute visual changes, redness, or discharge. ENT: Denies rhinorrhea, congestion, sore throat, or otalgia. CARDIOVASCULAR: Denies chest pain, palpitations, or edema. RESPIRATORY: Denies cough or dyspnea. GASTROINTESTINAL: Denies abdominal pain, nausea, vomiting, or diarrhea. Left flank pain with no change in pain GENITOURINARY: Denies dysuria or hematuria. SKIN: Denies rash or itching. MUSCULOSKELETAL: Denies back pain, joint pain, or myalgia. NEUROLOGIC: Denies headache, numbness, or weakness. [facility] Past Medical History Medical History Chronic GERD Diabetes DM renal manif type II, uncontrolled ESRD (end stage renal disease) Hypercholesterolemia Hypertension SHABNAM (obstructive sleep apnea) Rhinitis Surgical History Surgical History History of cholecystectomy History of partial nephrectomy Status post left cataract extraction Status post right knee replacement Stented coronary artery Family History Family History Mother Hypertension Cerebrovascular accident Father Family history of malignant neoplasm
[2021-05-12] MEDS: MECLIZINE HCL 25 MG TABLET PO (07:21)
[2021-05-12 07:24] VITALS: BP 157/80; PULSE 62
[2021-05-12 07:25] VITALS: BP 152/81; PULSE 68
[2021-05-12 07:28] VITALS: BP 150/76; PULSE 68
[2021-05-12 09:11] VITALS: BP 173/82; PULSE 60; RESP 16; O2SAT 100
== END 2021-05-12 09:15 | disposition home or self-care (01) ==
PROVIDERS: Emergency Medicine; Emergency Provider Emergency Medicine; PCP Family Medicine
DX: R42 Dizziness and giddiness (principal); F41.9 Anxiety disorder, unspecified; D49.7 Neoplasm of unspecified behavior of endocrine glands and other parts of nervous system; H35.30 Unspecified macular degeneration; E11.22 Type 2 diabetes mellitus with diabetic chronic kidney disease; I12.0 Hypertensive chronic kidney disease with stage 5 chronic kidney disease or end stage renal disease; N18.6 End stage renal disease; Z99.2 Dependence on renal dialysis; E78.00 Pure hypercholesterolemia, unspecified; G47.33 Obstructive sleep apnea (adult) (pediatric); K21.9 Gastro-esophageal reflux disease without esophagitis; Z90.5 Acquired absence of kidney; Z98.42 Cataract extraction status, left eye; Z96.651 Presence of right artificial knee joint; Z95.5 Presence of coronary angioplasty implant and graft; R94.31 Abnormal electrocardiogram [ECG] [EKG]; Z79.4 Long term (current) use of insulin; Z79.82 Long term (current) use of aspirin
CPT/HCPCS: 36415; 70450; 80053; 84484; 85025; 93005; 99284; A9270

== ENCOUNTER 2021-06-12 15:50 | Outpatient (CLI) | payer MEDICARE, SELFPAY ==
[2021-06-14 22:45] LABS: Tissue Transglutaminase IgA Ab <1.0 U/mL (<15.0)
[2021-06-15 22:13] LABS: Tissue Transglutaminase IgG Ab <1.0 U/mL (<15.0)
== END 2021-06-12 15:51 | disposition home or self-care (01) ==
PROVIDERS: PCP Family Medicine; Visit Provider Nurse Practitioner Family
DX: R19.7 Diarrhea, unspecified (principal)
CPT/HCPCS: 36415; 83516

== ENCOUNTER 2021-06-21 20:34 | Emergency (ER) | payer MEDICARE, SELFPAY ==
--- NOTE | ~2021-06-21 | CT_ITS ---
EXAMINATION: CT brain wo con DATE: 06/21/2021 23:14 INDICATION: Rapid onset headache post dialysis port removal. TECHNIQUE: Computed tomography (CT) of the head was performed without intravenous contrast. Sagittal and coronal reconstructions were performed. The mA was adjusted according to patient size. Iterative reconstruction technique was employed. The dose-length product was 681.00 mGy-cm. COMPARISON: head CT dated 05/12/2021 FINDINGS: No acute intracranial hemorrhage, acute infarction or abnormal extra axial fluid collection. There is mild scattered white matter hypoattenuation consistent with chronic small vessel ischemic disease. C hronic dystrophic calcification is at the bilateral basal ganglia and bilateral cerebellar hemisphere s. Symmetric prominence of the sulci consistent with mild age-appropriate diffuse cerebral volume los s. Ventricles are normal and symmetric. No interval change in mild enlargement of the pituitary glan d. Changes of bilateral intraocular lens replacement. Mild mucosal thickening the bilateral ethmoid s inuses. Mastoid air cells and middle ear cavities are clear. IMPRESSION: 1. No acute intracranial process. 2. 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 Consi enrico pre and postcontrast MRI for further evaluation. 3. Age-related changes including mild diffuse volume loss and mild scattered white matter hypoattenua tion consistent with chronic small vessel ischemic disease. Reviewed, dictated and finalized at location A. IMPRESSION: 1. No acute intracranial process. 2. Unchanged mild enlargement of the pituitary potentially related to a pituita ry macroadenoma. Consider pre and postcontrast MRI for further evaluation. 3. Age-related changes including mild diffuse volume loss and mild scattered wh ite matter hypoattenuation consistent with chronic small vessel ischemic diseas e.
[2021-06-21 20:36] VITALS: BP 163/82; PULSE 69; RESP 18; TEMP 37.1; O2SAT 99
[2021-06-21 22:41] VITALS: BP 172/82; PULSE 61; RESP 15; O2SAT 99
[2021-06-21 23:02] VITALS: BP 150/74; PULSE 68; RESP 14; O2SAT 98
--- NOTE | 2021-06-21 23:05 | ED.DIZZY ---
HPI - Dizziness General Chief Complaint: Dizziness <Charmaine Jackson PA-C - Last Filed: 06/22/21 03:07> Stated Complaint: headache <Charmaine Jackson PA-C - Last Filed: 06/22/21 03:07> Time Seen by Provider: 06/21/21 22:41 <Charmaine Jackson PA-C - Last Filed: 06/22/21 03:07> History of Present Illness HPI Narrative: Patient is a 66-year-old male with a history of hypertension, end-stage renal disease on peritoneal dialysis, newly diagnosed pituitary mass, who presents emergency department for evaluation of a headache today. Patient states that he had his temporary dialysis port removed and the headache began afterwards. 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 Usually takes Tylenol for these headaches, but he states his headache today is different than usual, as it begins in his posterior head and radiates to the front. Reports transient relief from Tylenol. Patient expresses concern over potential brain bleed, although he denies any falls or loss of consciousness or head injury. He takes a baby aspirin daily but no other blood thinner. He also has some chronic blurry vision, which has been attributed to cataracts in the past, states this is no worse than usual. He is also been worked up for dizziness over the past several months, and he does not state that he is dizzy today. He was originally scheduled to get the pituitary mass removed on 06/08, but the surgery was canceled due to drops in blood pressure. Denies muscle cramping, confusion, weakness, seizures. <Charmaine Jackson PA-C - Last Filed: 06/22/21 03:07> Related Data Home Medications: Home Medications Medication Instructions Recorded Confirmed ICaps AREDS2 (copper citrate) 1 tablet PO BID 02/01/19 05/23/21 aspirin [Aspirin Low Dose] 81 mg PO DAILY 02/01/19 06/12/21 cholecalciferol (vitamin D3) 2,000 unit PO DAILY 02/01/19 06/12/21 sodium bicarbonate 650 mg PO BID 02/01/19 06/12/21 OneTouch Ultra Blue Test Strip 05/14/19 06/12/21 carvedilol 25 mg tablet 25 mg PO HS tablet 09/06/19 06/12/21 furosemide 40 mg tablet 80 mg PO BID tablet 09/06/19 06/12/21 minoxidil 2.5 mg tablet 5 mg PO DAILY 09/06/19 05/23/21 Basaglar KwikPen U-100 Insulin 55 unit SUBCUT BID 09/02/20 06/12/21 insulin lispro [Humalog U-100 See Rx Instructions .ROUTE .COMPLEX 09/02/20 06/12/21 Insulin] lisinopril 40 mg PO HS 09/02/20 06/12/21 glipizide 10 mg PO BID 04/29/21 05/23/21 minoxidil 2.5 mg PO HS 04/29/21 06/12/21 pantoprazole 40 mg PO DAILY 04/29/21 06/12/21 sevelamer carbonate 800 mg PO AC 04/29/21 06/12/21 trazodone 50 mg PO HS 04/29/21 05/23/21 <Charmaine Jackson PA-C - Last Filed: 06/22/21 03:07> Allergies/Adverse Reactions: Allergies Allergy/AdvReac Type Severity Reaction Status Date / Time No Known Allergies Allergy Unknown Verified 06/21/21 20:42 <Charmaine Jackson PA-C - Last Filed: 06/22/21 03:07> Review of Systems Review of Systems: Gen.: Denies fevers or chills Eyes: Denies eye pain or visual change ENT: Denies congestion Respiratory: Denies shortness of breath or cough CV: Denies chest pain or palpitations GI: Denies abdominal pain nausea, emesis or diarrhea denies burning, urgency, frequency or hematuria Musculoskeletal: Denies back pain or muscle pain Neuro: Reports headache. Denies numbness, tingling, weakness or focal weakness Skin: Denies rash Except as documented, all other systems reviewed and negative <HENRY Howell Last Filed: 06/22/21 03:07> All systems reviewed & are unremarkable except as noted in HPI and below <HENRY Howell Last Filed: 06/22/21 03:07> [facility] Past Medical History Medical History: Medical History Chronic GERD Diabetes DM renal manif t
[2021-06-21] MEDS: ACETAMINOPHEN 325 MG TABLET 650 MG PO (23:18)
[2021-06-21 23:51] LABS: Basophils Percent Auto 0.1 % (0.2-1.2); Eosinophils Percent Auto 0.1 % (0-4.4); Hematocrit 28.5 % (42.0-52.0); Hemoglobin 9.6 g/dL (14.0-18.0); Immature Granulocyte Absolute 0.18 K/mm3 (0.00-0.031); Immature Granulocyte Percent A 2.5 % (0-0.5); Lymphocytes Absolute Auto 0.99 K/mm3 (0.9-3.2); Lymphocytes Percent Auto 13.7 % (18.3-44.2); Mean Corpuscular HGB Conc 33.7 g/dl (32-36); Mean Corpuscular Volume 89.1 fl (80-100); Mean Platelet Volume 11.3 fl (7.4-10.4); Monocytes Absolute Auto 0.9 K/mm3 (0.1-0.6); Monocytes Percent Auto 12.6 % (2.6-8.5); Neutrophils Absolute Auto 5.1 K/mm3 (1.3-6.7); Platelet Count Result 159 k/mm3 (150-375); Red Cell Distribution Width 13.6 % (11.5-14.5); White Blood Count 7.2 K/mm3 (4.5-10.0)
[2021-06-21 23:54] LABS: Alanine Aminotransferase 21 U/L (4-50); Albumin Level 4.2 g/dL (3.5-5.1); Alkaline Phosphatase 83 U/L (38-126); Anion Gap 16 mmol/L (8-16); Aspartate Amino Transferase 23 U/L (17-59); Bilirubin,Total 0.4 mg/dL (0.2-1.3); Blood Urea Nitrogen 40 mg/dL (9-20); Calcium 6.9 mg/dL (8.4-10.2); Carbon Dioxide 25 mmol/L (22-30); Chloride 99 mmol/L (98-107); Estimated CRCL calculation 11 ml/min; Estimated Glomerular Filt Rate 7; Glucose 184 mg/dL (65-110); Potassium 3.3 mmol/L (3.4-5.0); Sodium 140 mmol/L (137-145)
[2021-06-22 00:18] VITALS: PULSE 67; RESP 15; O2SAT 99
[2021-06-22] MEDS: CALCIUM CARBONATE (TUMS) 500 MG (200 MG ELEMENTAL) PO (00:50)
== END 2021-06-22 00:54 | disposition home or self-care (01) ==
PROVIDERS: Physician Assistant; Emergency Provider Emergency Medicine; PCP Family Medicine
DX: R51.9 Headache, unspecified (principal); E83.51 Hypocalcemia; E11.22 Type 2 diabetes mellitus with diabetic chronic kidney disease; I12.0 Hypertensive chronic kidney disease with stage 5 chronic kidney disease or end stage renal disease; N18.6 End stage renal disease; Z99.2 Dependence on renal dialysis; E78.00 Pure hypercholesterolemia, unspecified; H35.30 Unspecified macular degeneration; G47.33 Obstructive sleep apnea (adult) (pediatric); K21.9 Gastro-esophageal reflux disease without esophagitis; Z90.5 Acquired absence of kidney; Z98.42 Cataract extraction status, left eye; Z96.651 Presence of right artificial knee joint; Z95.5 Presence of coronary angioplasty implant and graft; Z79.4 Long term (current) use of insulin; Z79.82 Long term (current) use of aspirin; E23.7 Disorder of pituitary gland, unspecified
CPT/HCPCS: 36415; 70450; 80053; 85025; 99284; A9270

== ENCOUNTER 2021-07-19 11:21 | Outpatient (NON) | payer MEDICARE, SELFPAY ==
[2021-07-19 12:57] LABS: Toxigenic C. Diff NEGATIVE (NEGATIVE)
== END 2021-07-19 11:22 | disposition home or self-care (01) ==
LOC: ANHLAB 11:23
PROVIDERS: PCP Family Medicine; Visit Provider Nurse Practitioner Family
DX: A04.72 Enterocolitis due to Clostridium difficile, not specified as recurrent (principal)
CPT/HCPCS: 87493

== ENCOUNTER 2021-09-03 00:45 | Day surgery (SDC) | payer MEDICARE, SELFPAY ==
[2021-08-16 13:21] VITALS: BMI 37.0
--- NOTE | 2021-08-31 13:56 | PM.HPGS ---
History of Present Illness History of Present Illness Consent: Risks, benefits, and alternatives have been discussed and questions answered. Patient agrees to proceed with procedure. Chief complaint: diarrhea Narrative: Kendall Carl is a 66 year old male Who was referred for colon cancer screening. He has a history of polyps. He had C difficile colitis earlier this year which has resolved. Review of Systems Review of Systems: All systems reviewed & are unremarkable except as noted in HPI and below PMFSH Past Medical History Medical History C. difficile diarrhea Chronic GERD Diabetes DM renal manif type II, uncontrolled ESRD (end stage renal disease) Hypercholesterolemia Hypertension SHABNAM (obstructive sleep apnea) Rhinitis Surgical History Surgical History History of cholecystectomy History of partial nephrectomy Status post left cataract extraction Status post right knee replacement Stented coronary artery Family History Family History Mother Hypertension Cerebrovascular accident Father Family history of malignant neoplasm Carcinoma of colon Social History Social History Social History: Patient lives at home with his Harriet who will be his surrogate. Patient a nonsmoker and drinks very rarely they deny having any pets and patient is [employer]. Patient wishes to be a full code at this time Smoking status: Never smoker Second hand tobacco smoke exposure: No Alcohol intake: current Alcohol use details: rare, holidays Substance use: never Substance use type: does not use Gender identity (if verbalized by the patient): Male Sexual Orientation (if Verbalized by the Patient): Straight or Heterosexual Spiritual care concerns: No Agree to blood products: Yes Meds Home Medications and Allergies Home Medications Medication Instructions Recorded Confirmed Type blood-glucose meter (OneTouch #1 ea 12/23/18 08/16/21 Rx Ultra2 Meter) lancets 30 gauge (OneTouch Delica #100 ea 12/23/18 08/16/21 Rx Lancets) aspirin 81 mg tablet,delayed 81 mg PO DAILY 02/01/19 08/16/21 History release (Smai Low Dose Aspirin) cholecalciferol (vitamin D3) 50 2,000 unit PO DAILY 02/01/19 08/16/21 History mcg (2,000 unit) tablet sodium bicarbonate 650 mg PO BID 02/01/19 08/16/21 History vit C 250 mg-vit E 200 unit-zinc 1 tablet PO BID 02/01/19 08/16/21 History 12.5 mg-copper 1 [id number] tablet (ICaps AREDS2 (copper citrate)) blood sugar diagnostic (OneTouch 05/14/19 08/16/21 History Ultra Blue Test Strip) carvedilol 25 mg tablet (Coreg) 25 mg PO BID 09/06/19 08/16/21 History furosemide 40 mg tablet (Lasix) 80 mg PO BID 09/06/19 08/16/21 History pen needle, diabetic 32 gauge x #200 ea 09/06/19 08/16/21 Rx 1/4 (BD Ultra-Fine Micro Pen Needle) insulin glargine 100 unit/mL (3 55 unit subcut BID 09/02/20 08/16/21 History mL) subcutaneous pen ([place] Trejo U-100 Insulin) lisinopril 20 mg tablet 40 mg PO HS 09/02/20 09/03/21 History atorvastatin 40 mg tablet 80 mg PO HS #60 tabs 03/14/21 09/03/21 Rx levothyroxine 112 mcg tablet 112 mcg PO DAILY #90 tabs 03/19/21 08/16/21 Rx pantoprazole 40 mg tablet,delayed 40 mg PO DAILY 04/29/21 08/16/21 History release sevelamer carbonate 800 mg tablet 800 mg PO AC 04/29/21 08/16/21 History sodium sul 1.479 gram-potas ch See Rx Instructions PO PER PKG DIR 08/10/21 08/16/21 Rx 0.188 gram-magnes sul 0.225 gram #24 tabs tablet (Sutab) lorazepam 0.5 mg tablet (Ativan) 0.5 mg PO DAILY PRN anxiety #30 08/13/21 08/16/21 Rx tabs Allergies Allergy/AdvReac Type Severity Reaction Status Date / Time No Known Allergies Allergy Unknown Verified 09/03/21 09:40 Exam Resp: Auscultation: clear to
[2021-09-03 09:43] VITALS: BP 141/88; PULSE 67; RESP 20; TEMP 36.2; O2SAT 100; BMI 35.7
[2021-09-03] MEDS: SODIUM CHLORIDE 0.9% IV 500 ML 10 ML IV CONT (09:49)
[2021-09-03 10:00] LABS: Glucose Point of Care 142 mg/dl (65-105)
--- NOTE | 2021-09-03 10:12 | WPDANESEPPF ---
Anes - Initial Pre Proc Eval Procedure: Operation Date: 09/03/21 10:45 Proposed Procedures p Colonoscopy - Eric Brady MD Date/Time: 09/03/21 10:12 Surgeon: Eric Brady MD Pre Op Diagnosis: diarrhea Patient Data Age: 66 Gender: M Height: 1.75 m Weight: 109.8 kg Last Vital Signs Temp 97.1 F L 09/03/21 09:43 Pulse 67 09/03/21 09:43 Resp 20 09/03/21 09:43 BP 141/88 H 09/03/21 09:43 Pulse Ox 100 09/03/21 09:43 O2 Del Method Room Air 09/03/21 09:43 Allergies Allergy/AdvReac Type Severity Reaction Status Date / Time No Known Allergies Allergy Unknown Verified 09/03/21 09:40 Home Medications Medication Instructions Recorded Confirmed Type blood-glucose meter (Next Generation ContractingTouch #1 ea 12/23/18 08/16/21 Rx Ultra2 Meter) lancets 30 gauge (OneTouch Delica #100 ea 12/23/18 08/16/21 Rx Lancets) aspirin 81 mg tablet,delayed 81 mg PO DAILY 02/01/19 08/16/21 History release (Sami Low Dose Aspirin) cholecalciferol (vitamin D3) 50 2,000 unit PO DAILY 02/01/19 08/16/21 History mcg (2,000 unit) tablet sodium bicarbonate 650 mg PO BID 02/01/19 08/16/21 History vit C 250 mg-vit E 200 unit-zinc 1 tablet PO BID 02/01/19 08/16/21 History 12.5 mg-copper 1 [id number] tablet (ICaps AREDS2 (copper citrate)) blood sugar diagnostic (OneTouch 05/14/19 08/16/21 History Ultra Blue Test Strip) carvedilol 25 mg tablet (Coreg) 25 mg PO BID 09/06/19 08/16/21 History furosemide 40 mg tablet (Lasix) 80 mg PO BID 09/06/19 08/16/21 History pen needle, diabetic 32 gauge x #200 ea 09/06/19 08/16/21 Rx 1/4 (BD Ultra-Fine Micro Pen Needle) insulin glargine 100 unit/mL (3 55 unit subcut BID 09/02/20 08/16/21 History mL) subcutaneous pen (Basaglar KwikPen U-100 Insulin) lisinopril 20 mg tablet 40 mg PO HS 09/02/20 09/03/21 History atorvastatin 40 mg tablet 80 mg PO HS #60 tabs 03/14/21 09/03/21 Rx levothyroxine 112 mcg tablet 112 mcg PO DAILY #90 tabs 03/19/21 08/16/21 Rx pantoprazole 40 mg tablet,delayed 40 mg PO DAILY 04/29/21 08/16/21 History release sevelamer carbonate 800 mg tablet 800 mg PO AC 04/29/21 08/16/21 History sodium sul 1.479 gram-potas ch See Rx Instructions PO PER PKG DIR 08/10/21 08/16/21 Rx 0.188 gram-magnes sul 0.225 gram #24 tabs tablet (Sutab) lorazepam 0.5 mg tablet (Ativan) 0.5 mg PO DAILY PRN anxiety #30 08/13/21 08/16/21 Rx tabs Laboratory Tests 09/03/21 09:56 POC Capillary Glucose 142 mg/dl H mg/dl (65-105) Patient hx anesthesia problems: none Family hx anesthesia problems: none Results Review: All pre-operative results and documents have been reviewed as part of the pre-operative evaluation. FORMERLY [facility], [facility] Past Medical History Medical History C. difficile diarrhea Chronic GERD Diabetes DM renal manif type II, uncontrolled ESRD (end stage renal disease) Hypercholesterolemia Hypertension SHABNAM (obstructive sleep apnea) Rhinitis Surgical History Surgical History History of cholecystectomy History of partial nephrectomy Status post left cataract extraction Status post right knee replacement Stented coronary artery Family History Family History Mother Hypertension Cerebrovascular accident Father Family history of malignant neoplasm Carcinoma of colon Social History Social History Social History: Patient lives at home with his Harriet who will be his surrogate. Patient a nonsmoker and drinks very rarely they deny having any pets and patient is [place]. Patient wishes to be a full code at this time Smoking status: Never smoker Second hand tobacco smoke exposure: No Alcohol intake: current Alcohol use details: rare, holidays Substance use: never Substance use type: does not us
[2021-09-03 11:28] VITALS: BP 112/55; PULSE 54; RESP 18; O2SAT 97
[2021-09-03 11:38] VITALS: BP 130/60; PULSE 54; RESP 18; O2SAT 97
[2021-09-03 11:44] LABS: Glucose Point of Care 145 mg/dl (65-105)
[2021-09-03 11:48] VITALS: BP 132/63; PULSE 58; RESP 19; O2SAT 100
== END 2021-09-03 11:58 | disposition home or self-care (01) ==
PROVIDERS: PCP Family Medicine; Visit Provider Internal Medicine Gastroenterology
PROC: 0DJD8ZZ Inspection of Lower Intestinal Tract, Via Natural or Artificial Opening Endoscopic (ICD-10-PCS; CPT 45378; principal; 2021-09-03 10:45)
DX: Z12.11 Encounter for screening for malignant neoplasm of colon (principal); D12.2 Benign neoplasm of ascending colon; K64.8 Other hemorrhoids; E03.9 Hypothyroidism, unspecified; Z79.82 Long term (current) use of aspirin; Z79.4 Long term (current) use of insulin; K21.9 Gastro-esophageal reflux disease without esophagitis; E11.22 Type 2 diabetes mellitus with diabetic chronic kidney disease; I12.0 Hypertensive chronic kidney disease with stage 5 chronic kidney disease or end stage renal disease; N18.6 End stage renal disease; G47.33 Obstructive sleep apnea (adult) (pediatric); E78.00 Pure hypercholesterolemia, unspecified; Z95.5 Presence of coronary angioplasty implant and graft; Z90.49 Acquired absence of other specified parts of digestive tract; E66.9 Obesity, unspecified; Z68.35 Body mass index [BMI] 35.0-35.9, adult
CPT/HCPCS: 45380; 45385; 82948; 88305; J2704; J7040

== ENCOUNTER 2021-10-12 10:19 | Observation (INO) | payer MEDICARE, SELFPAY ==
[2021-10-12] VITALS (23 sets, daily range): BP systolic 143–175; BP diastolic 65–90; PULSE 47–62; RESP 10–20; TEMP 36.6–37.1; O2SAT 95–99; BMI 37.0
--- NOTE | ~2021-10-12 | CT_ITS ---
EXAMINATION: CT brain wo con DATE: 10/13/2021 09:39 INDICATION: Dizziness . TECHNIQUE: Computed tomography (CT) of the head was performed without intravenous contrast. The mA wa s adjusted according to patient size. Iterative reconstruction technique was employed. The dose-lengt h product was 681.00 mGy-cm. COMPARISON: None FINDINGS: No acute intracranial hemorrhage or extra-axial fluid collection. No hydrocephalus, mass, or herniation. No acute ischemic infarct. Unremarkable dural venous sinus attenuation. No acute osseous abnormality. Posterior sphenoid retention cysts or polyps. Otherwise the aerated spaces are clear. Bilateral basal ganglia calcification. Bilateral cerebellar hemisphere calcification. Atherosclerotic intracranial calcifications. Left lens replacement. Stable pituitary enlargement. IMPRESSION: No acute intracranial process. Enlarged pituitary, consider referral for outpatient MRI of the pituit alma. Reviewed, dictated and finalized at location K. IMPRESSION: No acute intracranial process. Enlarged pituitary, consider referral for outpat ient MRI of the pituitary.
--- NOTE | ~2021-10-12 | US_ITS ---
EXAMINATION: US carotid duplex BI DATE: 10/13/2021 09:53 INDICATION: Dizziness TECHNIQUE: Grayscale, color Doppler, and pulsed Doppler images of the cervical carotid arteries were obtained. The degree of vessel stenosis is placed in one of the following categories: normal, <50%, 5 0-69%, >=70% but less than near-occlusion, near-occlusion, or total occlusion. Note that percent sten osis relative to normal distal artery lumen diameter is indirectly measured from velocity measurement s as described by Sohail, et al. Radiology 2003; 229:340-346. COMPARISON: 10/04/2015 FINDINGS: RIGHT: The right common carotid artery (CCA) peak systolic velocity (PSV) is 77 cm/s. The right internal car otid artery (ICA) PSV is 70 cm/s. The right ICA end-diastolic velocity (EDV) is 21 cm/s. The right IC A/CCA PSV ratio is 0.9. Grayscale and color Doppler images yield an estimate of less than 50% diamete r reduction from plaque in the ICA. The external carotid artery (ECA) PSV is 90 cm/s. There is antegr sterling flow in the right vertebral artery. LEFT: The left CCA PSV is 88 cm/s. The left ICA PSV is 63 cm/s. The left ICA EDV is 19 cm/s. The left ICA/C CA PSV ratio is 0.7. Grayscale and color Doppler images yield an estimate of less than 50% diameter r eduction from plaque in the ICA. The ECA PSV is 87 cm/s. There is antegrade flow in the left vertebra l artery. IMPRESSION: 1. <50% stenosis in the right internal carotid artery. 2. <50% stenosis in the left internal carotid artery. Reviewed, dictated and finalized at location A.
--- NOTE | ~2021-10-12 | XR_ITS ---
EXAMINATION: XR chest 2V 10/12/2021 10:57 INDICATION: Left-sided chest pain, weakness and dizziness PROCEDURE: 2 view chest COMPARISON: Comparison to multiple prior studies sequentially, with oldest reviewed study dated 05/13. FINDINGS: The lungs are clear. The cardiomediastinal silhouette is within normal limits. There are no pleural effusions. There is no pneumothorax suspected. There is diffuse idiopathic skeletal hyp erostosis (DISH) of the thoracic spine. IMPRESSION: 1: NO ACUTE CARDIOPULMONARY DISEASE. Reviewed, dictated and finalized at location A.
--- NOTE | 2021-10-12 10:21 | ECG_ITS ---
Measurements Intervals [place] Rate: 53 P: 94 OR: 164 QRS: -55 QRSD: 102 T: 244 QT: 526 QTc: 497 Interpretive Statements SINUS BRADYCARDIA PATTERN CONSISTENT WITH PULMONARY DISEASE INCOMPLETE RIGHT BUNDLE BRANCH BLOCK [90+ ms QRS DURATION, TERMINAL R IN V1/V2, 40+ ms S IN I/aVL/V4/V5/V6] LEFT ANTERIOR FASCICULAR BLOCK [QRS AXIS <= -45, QR IN I, RS IN II] MODERATE T-WAVE ABNORMALITY, CONSIDER LATERAL ISCHEMIA [-0.1+ mV T WAVE IN I/aVL/V5/V6] MODERATE T-WAVE ABNORMALITY, CONSIDER INFERIOR ISCHEMIA [-0.1+ mV T WAVE IN II/aVF] COMPARED TO ECG 05/12/2021 06:25:41 SINUS BRADYCARDIA NOW PRESENT INCOMPLETE RIGHT BUNDLE-BRANCH BLOCK NOW PRESENT Electronically Signed On 10-12-2021 12:53:27 CDT by Elroy Miranda M.D.
[2021-10-12 10:42] LABS: Basophils Percent Auto 0.2 % (0.2-1.2); Eosinophils Percent Auto 0.1 % (0-4.4); Hematocrit 32.5 % (42.0-52.0); Immature Granulocyte Absolute 0.47 K/mm3 (0.00-0.031); Immature Granulocyte Percent A 4.4 % (0-0.5); Lymphocytes Absolute Auto 1.01 K/mm3 (0.9-3.2); Lymphocytes Percent Auto 9.6 % (18.3-44.2); Mean Corpuscular HGB Conc 33.8 g/dl (32-36); Mean Corpuscular Hemoglobin 30.1 pg (26-34); Mean Corpuscular Volume 88.8 fl (80-100); Mean Platelet Volume 11.2 fl (7.4-10.4); Monocytes Absolute Auto 1.1 K/mm3 (0.1-0.6); Monocytes Percent Auto 10.4 % (2.6-8.5); Neutrophils Percent Auto 75.3 % (45.5-73.1); Platelet Count Result 166 k/mm3 (150-375); Red Blood Count 3.66 M/mm3 (4.6-6.20); Red Cell Distribution Width 15.1 % (11.5-14.5); White Blood Count 10.6 K/mm3 (4.5-10.0)
[2021-10-12 10:51] LABS: INR 1.1; Prothrombin Time 13.3 Seconds (11.1-14.7)
[2021-10-12 10:52] LABS: Partial Thromboplastin Time 27.5 SECONDS (22.3-36.8)
[2021-10-12 11:02] LABS: Alanine Aminotransferase 87 U/L (6-50); Albumin Level 4.3 g/dL (3.5-5.1); Alkaline Phosphatase 119 U/L (38-126); Anion Gap 16 mmol/L (8-16); Aspartate Amino Transferase 60 U/L (17-59); Blood Urea Nitrogen 39 mg/dL (9-20); Calcium 9.6 mg/dL (8.4-10.2); Carbon Dioxide 25 mmol/L (22-30); Chloride 96 mmol/L (98-107); Estimated Glomerular Filt Rate 11; Glucose 195 mg/dL (65-110); Lipase 172 U/L (23-300); Potassium 4.1 mmol/L (3.4-5.0); Sodium 137 mmol/L (137-145)
[2021-10-12 11:13] LABS: Troponin I 0.053 ng/mL (0.000-0.034)
[2021-10-12] MEDS: ASPIRIN 81 MG CHEWABLE TABLET 324 MG PO (11:21)
[2021-10-12 11:22] LABS: SARS-CoV-2 RNA PCR Negative
--- NOTE | 2021-10-12 11:34 | PC.NURSE ---
Patient report received from PORSHA Barragan. All questions answered and care of patient assumed. Patient resting quietly in stretcher with at bedside and call-light within reach. ASA administered. Patient denies complaints at this time. Will continue to address needs as they arise.
--- NOTE | 2021-10-12 11:50 | ED.GENADULT ---
HPI - General Adult General Chief complaint: Chest Pain Stated complaint: chest pain, back pain Time Seen by Provider: 10/12/21 10:23 History of Present Illness HPI narrative: Patient is a 66-year-old male who presents ER with chest pain. He was in PCP office today and referred down here due to chest discomfort. Apparently he was diaphoretic and no EKG leads would stick to. Reports he has been having burning bloating type epigastric and chest pain. Over now and then he will get a grabbing chest pain on the left side but its been since yesterday's had the grabbing left-sided chest pain. Cannot identify aggravating or alleviating factors. He does have history of heart disease and has 2 stents. No known alleviating factors. Patient also reports he has been a lot more fatigued than typical over the last couple days. Associate with cough but no fevers or chills. Related Data Home Medications Medication Instructions Recorded Confirmed aspirin 81 mg tablet,delayed 81 mg PO DAILY 02/01/19 10/12/21 release (Sami Low Dose Aspirin) cholecalciferol (vitamin D3) 50 4,000 unit PO DAILY 02/01/19 10/12/21 mcg (2,000 unit) tablet sodium bicarbonate 650 mg PO BID 02/01/19 10/12/21 vit C 250 mg-vit E 200 unit-zinc 1 tablet PO BID 02/01/19 10/12/21 12.5 mg-copper 1 [id number] tablet (ICaps AREDS2 (copper citrate)) blood sugar diagnostic (OneTouch 05/14/19 10/12/21 Ultra Blue Test Strip) carvedilol 25 mg tablet (Coreg) 25 mg PO BID 09/06/19 10/12/21 furosemide 40 mg tablet (Lasix) 80 mg PO BID 09/06/19 10/12/21 lisinopril 20 mg tablet 40 mg PO HS 09/02/20 10/12/21 pantoprazole 40 mg tablet,delayed 40 mg PO HS 04/29/21 10/12/21 release sevelamer carbonate 800 mg tablet 800 mg PO AC 04/29/21 10/12/21 insulin glargine 100 unit/mL (3 70 unit subcut BID 10/12/21 10/12/21 mL) subcutaneous pen (Basaglar KwikPen U-100 Insulin) lorazepam 0.5 mg tablet (Ativan) 0.5 mg PO HS 10/12/21 10/12/21 Allergies Allergy/AdvReac Type Severity Reaction Status Date / Time No Known Allergies Allergy Unknown Verified 10/12/21 09:18 Review of Systems Review of Systems: All systems reviewed & are unremarkable except as noted in HPI and below Constitutional: Constitutional: Denies chills and Denies fever(s) ENT: Denies nasal congestion and Denies sore throat Cardiovascular: Cardiovascular: Reports chest pain, Denies rapid heart rate and Denies radiating jaw, neck or arm pain Gastrointestinal: Gastrointestinal: Reports abdominal pain, Reports heartburn, Denies nausea and Denies vomiting Musculoskeletal: Musculoskeletal: Reports back pain and Denies arthralgias [facility] Past Medical History Medical History (Updated 10/12/21 @ 18:46 by Jonnathan Flores MD) 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 Adenoma of pituitary Adult hypothyroidism Anemia Anxiety Chronic diastolic (congestive) heart failure Chronic GERD Chronic kidney disease, stage 4 (severe) COVID-19 Diabetes Dysphagia History of kidney cancer Hy kid NOS w cr kid I-IV Hypercholesterolemia Hypertension Increased prostate specific antigen (PSA) velocity Left kidney mass Neoplasm of kidney SHABNAM (obstructive sleep apnea) Pituitary tumor Rhinitis Urinary tract infection Viral URI Surgical History Surgical History (Updated 10/12/21 @ 13:31 by SIRI [place]) History of cholecystectomy History of partial nephrectomy Status post left cataract extraction Status post right knee replacement Status post total right knee replacement Stented coronary artery Family History Family History Mother Hypertension Cerebrovascular accident Father Family history of malignant neoplasm Carcinoma of colon Social History Social History Social History: Patient lives at home with his Harriet who will be his surrogate. [place]
[2021-10-12] MEDS: ENOXAPARIN 100 MG/ML SYRINGE 110 MG SUB-Q (13:12)
[2021-10-12 13:59] LABS: Troponin I 0.048 ng/mL (0.000-0.034)
--- NOTE | 2021-10-12 14:15 | PM.IMHP ---
H&P: HPI History of Present Illness Date/Time: 10/12/21 14:15 Chief Complaint: Chest pain Narrative: Patient is a 66 year old male with a past medical history of ESRD with dialysis, HTN, Diabetes, SHABNAM who presented to the ED with complaints of chest pain. patient stated that he has been having pain for the last couple of days. He stated that he went to the doctor today and they sent him here. He stated that he was having some burning in his epigastric area of his stomach and left-sided chest pain over his left breast. He stated that it was intermittent and would only last about 1-2 minutes however he would become dizzy and could walk. He stated that they send on him because he was hot all over and he was having sweats however he did notice that he was sweating. He also stated that he has been lightheaded and is exhibiting headache that has not resolved and stays pretty persistent. He denies any swelling in his lower extremities. He also stated that he has been nauseous lately as well. He also stated that he had a cough that started about a week ago. He states is nonproductive. He denies any issues with his abdomen however he does have a poor appetite and states he has lost about 13 lb in 4 days. Patient still urinates and states he has no burning or retention after urine. He has also experienced some numbness and tingling in his toes in the last week and has been using a warm water massager and has been helping. He did state that he has been compliant with his dialysis and his catheter was just evaluated with no signs of infection or peritonitis. His brought up that his blood sugars have been running pretty high in the morning time which is unusual for him. She states most the time he is below 200 however most mornings 3-4 days over the last week has been over 400 when he wakes up in the morning. Chest x-ray done showed no acute cardiopulmonary disease. EKG does show some T-wave abnormalities indicating some possible ischemia. Troponin are slightly elevated 0.053, and 0.048. Cardiology consulted. Patient is being admitted for further workup and management as observation Review of Systems Review of Systems: All systems reviewed & are unremarkable except as noted in HPI and below [facility] Past Medical History Medical History (Updated 10/12/21 @ 13:43 by Guy G. Stein, QUARTZ MOUNTER-C) 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 Adenoma of pituitary Adult hypothyroidism Anemia Anxiety Chronic diastolic (congestive) heart failure Chronic GERD Chronic kidney disease, stage 4 (severe) COVID-19 Diabetes Dysphagia History of kidney cancer Hy kid NOS w cr kid I-IV Hypercholesterolemia Hypertension Increased prostate specific antigen (PSA) velocity Left kidney mass Neoplasm of kidney SHABNAM (obstructive sleep apnea) Pituitary tumor Rhinitis Urinary tract infection Viral URI Surgical History Surgical History (Updated 10/12/21 @ 13:31 by SIRI Cleveland) History of cholecystectomy History of partial nephrectomy Status post left cataract extraction Status post right knee replacement Status post total right knee replacement Stented coronary artery Family History Family History Mother Hypertension Cerebrovascular accident Father Family history of malignant neoplasm Carcinoma of colon Social History Social History Social History: Patient lives at home with his Harriet who will be his surrogate. Patient a nonsmoker and drinks very rarely they deny having any pets and patient is Denominational. Patient wishes to be a full code at this time. Smoking status: Never smoker Second hand tobacco smoke exposure: No Alcohol intake: current Alcohol use details: rare, holidays Substance use: never Substance use type: does not use Living arrangements: with family Occupation/[employer]
--- NOTE | 2021-10-12 14:44 | ADMGEN ---
This patient, Kendall Carl, was admitted to IMU Room 212-01 on 10/12/21 at 1410. Patient/family oriented to hospital policies and general routines including ID bracelet, bed and alarms, visiting hours, pain management, procedures, bathroom and other care routines, personal items, smoking policy, room service/diet, and visiting hours. Information on how to activate the Rapid Response Team has been discussed. Patient/Family are encouraged to report perceived risks to care and to ask questions if they do not understand what they are told or what they should do.
--- NOTE | 2021-10-12 14:55 | PM.CNCAR ---
Assessment and Plan Assessment and plan (1) Chest pain: Code(s): R07.9 - Chest pain, unspecified Status: Acute Plan This is a 66-year-old man with end-stage renal did failure on peritoneal dialysis hypertension and diabetes. Apparently he has a history of coronary disease with stenting of his mid LAD last year at [facility] that was done when an angiogram showed flow-limiting disease in the mid LAD. Apparently these angiograms are done in these asymptomatic patients who are potential candidate for a renal transplant. In the he has intermittent chest pain symptoms that have created concern his primary care physician sent him to this emergency room where he was of course evaluated and admitted. We are at a significant disadvantage here at [place] as I do not have the ability to review the angiograms from last year and review those films personally. Objectively he looks stable. His electrocardiogram and biomarkers do not show any evidence of acute coronary syndrome and his symptoms are atypical/nonexertional intermittent chest pain. If his troponins remain favorable and he remains clinically stable I believe he can be discharged tomorrow morning for follow-up with his physicians at the [facility] that normally provide his care. If he becomes unstable with evidence of acute coronary syndrome then angiography will have to be done at this hospital Elroy Miranda MD [facility] History of Present Illness History of Present Illness Consult date/time: 10/12/21 14:55 Consult reason: chest pain Reason For Visit: Chest Pain/Elevated troponin Narrative: This is a 66-year-old man who is unknown to me prior to this encounter. I am seeing him at the request of the hospitalist because of chest pain. The patient apparently is known to have coronary artery disease and was in the office of his primary care physician in the [facility] but this morning was reporting some symptoms of intermittent chest pain for a number of days. He because of the symptoms was sent to the emergency room for evaluation. The patient is describing episodes of a sharp left precordial pain that seems to come and go in an unpredictable/nonexertional fashion is not associated to physical activity body position or meals. There is no associated shortness of breath diaphoresis nausea or vomiting. He does have a history of coronary artery disease apparently receives his cardiology care at [facility]. He states that is because he is been evaluated down there as a potential renal transplant recipient. He has end-stage renal disease and is on peritoneal dialysis because of hypertension. He also has a previous history of renal cell carcinoma according to the records. He states that he has undergone at least 2 if not 3 previous angiograms as he has been considered a candidate for renal transplant. According to the records in 2020 angiogram at [facility] also included IFR of his LAD which showed a mid LAD lesion to be significant and so it was treated with stenting. The patient states he was not really having any obvious chest pain symptoms at the time that he can recall. The details of the procedure are not available to be to me at the time of this dictation. In any event he was doing well he was apparently treated with dual anti-platelet therapy for a year and then the clopidogrel was stopped. He offers no other complaints today. His electrocardiogram shows a sinus mechanism with a nonspecific T-wave abnormality, unchanged in comparison to previous electrocardiograms in the chart. Troponin levels are just out of normal range at 0.05 and 0.04. Obviously his creatinine is high over 5 because of his renal failure. Review of Systems Constitutional: Constitutional: Reports body ache(s) Eyes: Eyes: Reports no additional eye complaints ENT: Reports system reviewed and no additional complaints, except as documented Cardiovascula
[2021-10-12 16:57] LABS: Glucose Point of Care 189 mg/dl (65-105)
[2021-10-12 16:59] LABS: LDL Cholesterol Direct 31 mg/dL
[2021-10-12 17:07] LABS: Troponin I 0.048 ng/mL (0.000-0.034)
[2021-10-12 17:08] LABS: Cholesterol 190 mg/dL (0-200)
[2021-10-12] MEDS: SODIUM BICARBONATE TAB 650 MG TABLET PO (17:42)
[2021-10-12] MEDS: INSULIN ASPART (*BKC) 100 UNITS/ML 40 UNITS SUB-Q (17:42)
[2021-10-12] MEDS: FUROSEMIDE 40 MG TABLET 80 MG PO (17:42)
[2021-10-12] MEDS: SEVELAMER CARBONATE 800 MG TABLET PO (17:55)
[2021-10-12 20:01] LABS: Triglycerides 690 mg/dL (<150)
[2021-10-12 20:10] LABS: Glucose Point of Care 113 mg/dl (65-105)
[2021-10-12 20:21] LABS: Hepatitis B Surface Antigen Negative (Negative)
[2021-10-12] MEDS: BELLADONNA ALK/PHENOB ELIX 10 ML, MAG HYDROX/ALUMINUM HYD/SIMETH 30 ML, LIDOCAINE HCL 2... PO (20:30)
[2021-10-12] MEDS: ATORVASTATIN 40 MG TABLET 80 MG PO (20:31)
[2021-10-12] MEDS: HEPARIN SODIUM 5,000 UNITS/ML VIAL 5000 UNITS SUB-Q (20:32)
[2021-10-12] MEDS: carvediloL 25 MG TABLET PO (20:32)
[2021-10-12] MEDS: lisinopriL 20 MG TABLET 40 MG PO (20:33)
[2021-10-12] MEDS: LORazepam (*CRX) 0.5 MG TABLET PO (20:34)
[2021-10-12] MEDS: ACETAMINOPHEN 325 MG TABLET 650 MG PO (20:34)
[2021-10-12] MEDS: PANTOPRAZOLE 40 MG TABLET PO (20:34)
[2021-10-12 20:38] LABS: Hepatitis B Surface Anti Res Negative
[2021-10-12] MEDS: INSULIN GLARGINE (*BKC) 100 UNITS/ML 35 UNITS SUB-Q (22:00)
[2021-10-13] VITALS (18 sets, daily range): BP systolic 145–171; BP diastolic 62–83; PULSE 43–65; RESP 12–20; TEMP 36.1–37.2; O2SAT 94–100
--- NOTE | 2021-10-13 | ECHO_ITS ---
Patient Info Name: Kendall Carl Age: 66 years : 1955 Gender: Male Ht: 69 in Wt: 244 lbs BSA: 2.36 m2 HR: 55 bpm BP: 171 / 83 mmHg Heart Rhythm: Sinus Rhythm Exam Date: 10/13/2021 9:23 AM Exam Location: [facility] Patient Status: Inpatient Admit Date: 10/12/2021 Staff Ordering Physician: Guy Stein Hot Metal Crane Operator: Cecilia Lagos RDCS Attending Provider: Alphonse Faustin DO Referring Physician: Emil IRIZARRY; Exam Type: CA echo doppler color flow Study Info Indications R07.9 - Chest pain, unspecified Complete two-dimensional, color flow and Doppler transthoracic echocardiogram is performed. Summary 1. Complete two-dimensional, color flow and Doppler transthoracic echocardiogram is performed. 2. Left ventricular chamber dimension is mildly enlarged. 3. Left ventricular systolic function is normal, estimated at 60-65%. 4. There is moderately increased left ventricular wall thickness. 5. The left ventricular diastolic function is grade I diastolic dysfunction. 6. The basal inferior wall, and mid inferior wall are hypokinetic. 7. Left atrial chamber dimension is mildly enlarged. 8. There is mild mitral valve regurgitation. 9. The mitral valve annulus is moderately calcified. 10. There is mild tricuspid valve regurgitation. Left Ventricle Left ventricular chamber dimension is mildly enlarged. Left ventricular systolic function is normal, estimated at 60-65%. There is moderately increased left ventricular wall thickness. The left ventricular diastolic function is grade I diastolic dysfunction. The basal inferior wall, and mid inferior wall are hypokinetic. All other kelley appear normal. Right Ventricle Right ventricular chamber dimension is normal. Right ventricular systolic function is normal. Left Atria Left atrial chamber dimension is mildly enlarged. Right Atria Right atrial chamber dimension is normal. Atrial Septum Intact interatrial septum visualized by color flow imaging. Aortic Valve The aortic valve is trileaflet. There is mild aortic valve sclerosis. There is no aortic valve stenosis. There is trace aortic valve regurgitation. Pulmonic Valve The pulmonic valve is normal. There is no pulmonic valve stenosis. There is trace pulmonic regurgitation. Mitral Valve There is no mitral valve stenosis. There is mild mitral valve regurgitation. The mitral valve annulus is moderately calcified. Tricuspid Valve The tricuspid valve leaflets are normal. There is no significant tricuspid valve stenosis. There is mild tricuspid valve regurgitation. Pericardium/Pleural The pericardium appears normal. There is no pericardial effusion. Inferior Vena Cava Normal inferior vena cava with >50% collapse upon inspiration consistent with normal right atrial pressure, 5 mmHg. Aorta The aortic root size at the sinus of Valsalva is mildly dilated. Left Ventricular Outflow Tract Name Value Normal LVOT 2D LVOT Diameter 2.0 cm LVOT Doppler LVOT Peak Gradient 6 mmHg LVOT Mean Gradient 3 mmHg
[2021-10-13 04:53] LABS: Basophils Percent Auto 0.2 % (0.2-1.2); Eosinophils Percent Auto 0.1 % (0-4.4); Hematocrit 31.5 % (42.0-52.0); Hemoglobin 10.7 g/dL (14.0-18.0); Immature Granulocyte Absolute 0.43 K/mm3 (0.00-0.031); Immature Granulocyte Percent A 5.1 % (0-0.5); Lymphocytes Absolute Auto 1.22 K/mm3 (0.9-3.2); Lymphocytes Percent Auto 14.6 % (18.3-44.2); Mean Corpuscular Hemoglobin 30.3 pg (26-34); Mean Corpuscular Volume 89.2 fl (80-100); Mean Platelet Volume 10.5 fl (7.4-10.4); Monocytes Percent Auto 11.4 % (2.6-8.5); Neutrophils Absolute Auto 5.7 K/mm3 (1.3-6.7); Neutrophils Percent Auto 68.6 % (45.5-73.1); Platelet Count Result 146 k/mm3 (150-375); Red Blood Count 3.53 M/mm3 (4.6-6.20); Red Cell Distribution Width 15.2 % (11.5-14.5); White Blood Count 8.4 K/mm3 (4.5-10.0)
[2021-10-13 05:07] LABS: Alanine Aminotransferase 78 U/L (6-50); Alkaline Phosphatase 120 U/L (38-126); Anion Gap 14 mmol/L (8-16); Aspartate Amino Transferase 42 U/L (17-59); Bilirubin,Total 0.5 mg/dL (0.2-1.3); Blood Urea Nitrogen 42 mg/dL (9-20); Calcium 8.2 mg/dL (8.4-10.2); Carbon Dioxide 29 mmol/L (22-30); Chloride 97 mmol/L (98-107); Estimated CRCL calculation 14 ml/min; Estimated Glomerular Filt Rate 9; Glucose 143 mg/dL (65-110); Magnesium 1.4 mg/dL (1.6-2.3); Potassium 3.2 mmol/L (3.4-5.0); Sodium 140 mmol/L (137-145)
[2021-10-13] MEDS: LEVOTHYROXINE SODIUM 112 MCG TABLET PO (06:08)
[2021-10-13] MEDS: SEVELAMER CARBONATE 800 MG TABLET PO ×3 (06:08→17:07)
[2021-10-13 06:09] LABS: Hepatitis B Surface Antigen Negative (Negative)
[2021-10-13 06:15] LABS: HAV RESULT Negative (Negative); Hepatitis B Core IgM Result Negative (Negative)
[2021-10-13 06:26] LABS: Hepatitis C Virus Antibody Negative (Negative)
[2021-10-13 07:42] LABS: Glucose Point of Care 157 mg/dl (65-105)
[2021-10-13] MEDS: INSULIN GLARGINE (*BKC) 100 UNITS/ML 35 UNITS SUB-Q (08:38)
[2021-10-13] MEDS: ASPIRIN 81 MG ENTERIC TABLET PO (08:44)
[2021-10-13] MEDS: carvediloL 25 MG TABLET PO ×2 (08:44→21:04)
[2021-10-13] MEDS: CHOLECALCIFEROL 1,000 UNITS TABLET 4000 UNITS PO (08:44)
[2021-10-13] MEDS: SODIUM BICARBONATE TAB 650 MG TABLET PO ×2 (08:45→17:09)
[2021-10-13] MEDS: OPTI-GEN TAB 1 TABLET PO (08:45)
[2021-10-13] MEDS: FUROSEMIDE 40 MG TABLET 80 MG PO ×2 (08:45→17:07)
[2021-10-13] MEDS: HEPARIN SODIUM 5,000 UNITS/ML VIAL 5000 UNITS SUB-Q ×2 (08:50→21:07)
[2021-10-13 11:31] LABS: Glucose Point of Care 253 mg/dl (65-105)
[2021-10-13] MEDS: INSULIN ASPART (*BKC) 100 UNITS/ML SUB-Q ×2 (12:17→17:08)
--- NOTE | 2021-10-13 12:29 | PM.CNNEP ---
Assessment and Plan Assessment and plan (1) End stage renal disease: Code(s): N18.6 - End stage renal disease Status: Chronic Assessment and Plan: tolerated CCPD overnight continue CCPD while hospitalized follow electrolytes, volume status, and clearance (2) Chest pain: Code(s): R07.9 - Chest pain, unspecified Status: Acute Assessment and Plan: as noted by presentation associated with diaphoresis Cardiology recommendations noted history of 2 stents follow-up on pending Echo (3) Hypertension: Code(s): I10 - Essential (primary) hypertension Status: Chronic Assessment and Plan: reasonable control continue home medications follow trend of hemodynamics (4) Anemia: Code(s): D64.9 - Anemia, unspecified Status: Chronic Assessment and Plan: H/H at goal for ESRD follow trend of H/H start Epogen if Hgb drops below 10 (5) Diabetes mellitus: Code(s): E11.9 - Type 2 diabetes mellitus without complications Status: Chronic Assessment and Plan: follow accuchecks glycemic control Will continue to follow. History of Present Illness Reason for Consult Consult date: 10/13/21 Reason for consult: end stage renal disease Chief Complaint Chief complaint: Chest Pain/Elevated troponin History of Present Illness Narrative: The patient is a 66-year-old male with a past medical history as outlined below who presented to [facility] Emergency room with complaints of chest pain. He states that he renal having the chest pain for last couple of days but did not initially see his primary care physician about it until yesterday. He stated the chest pain started out as a burning sensation in his epigastric area and then moved to the left side of his chest over his left breast. The chest pain was intermittent and it would only last about 1-2 minutes before it resolved on its own although he did say was associated with some dizziness and inability to maintain his balance. He presented to his primary care physician with these symptoms and reportedly, there were concerns for EKG changes and hence he was referred to the emergency room. Workup and evaluation in the emergency room demonstrated the patient be hemodynamically stable. Routine blood test demonstrated labs consistent with his known history of end-stage renal disease although his troponins were mildly elevated but difficult to interpret in the context of end-stage renal disease. There was reportedly some EKG changes with regard to T-wave abnormalities indicating the possibility of ischemia. Given these constellation of symptoms as well as his complex medical history he was admitted the hospital for further evaluation and therapy Since his admission, he has been seen by Cardiology with recommendations noted including echocardiogram the which is still pending today. He continues to have on off chest discomfort as well. Renal consultation was requested due to his end-stage renal disease. The patient normally does peritoneal dialysis every evening through [facility] under the care of Dr. Alan Mccall. From a dialysis perspective, he has been doing reasonably well. He is able to maintain stability in his fluid status as well as electrolytes with his ongoing peritoneal dialysis treatments. He did receive his peritoneal dialysis yesterday evening after his subsequent admission to the hospital. Currently, at the time my evaluation, he does not appear to be in acute distress and is awaiting for the results of his echocardiogram and whether or not further testing will need to be done from the perspective of Cardiology. Review of Systems Review of Systems: As per HPI. 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
--- NOTE | 2021-10-13 13:00 | P.PNIM_ITS ---
Progress Note: A&P Assessment and Plan (1) Chest pain: Code(s): R07.9 - Chest pain, unspecified Status: Acute Assessment and Plan: * reports chest pain with diaphoresis * Troponin mildly elevated at 0.053, 0.048, 0.048, flat could be related to renal failure * Continue to trend trops * Cardiology consulted thank you for your help * History of 2 stents * EKG does show a lot of changes, with multiple leads showing inverted T-Waves * Tele monitor * Continue aspirin, and atorvastatin * 324mg Aspirin given in the ed * Recommending a stress test (2) ESRD on dialysis: Code(s): N18.6 - End stage renal disease; Z99.2 - Dependence on renal dialysis Status: Acute Assessment and Plan: * Peritoneal dialysis * Current BUN/Cr 42/6.00 * Nephrology consulted * Nephrology to manage dialysis * Trend labs * Continue sevelamer, NaBicab (3) Hypothyroid: Code(s): E03.9 - Hypothyroidism, unspecified Status: Acute Assessment and Plan: * Continue levothyroxine 112mcg PO daily (4) Diabetes mellitus: Code(s): E11.9 - Type 2 diabetes mellitus without complications Status: Chronic Assessment and Plan: * Glucose is 143 * Continue home lantus 70 units BID, and lispro 40 units BID * Trend glucose * A1c ordered * ISS * Accu cheks * Hypoglycemia protocol * Adjust therapy as indicated * Adjustments made as the patient has not been eating (5) CAD (coronary artery disease): Code(s): I25.10 - Atherosclerotic heart disease of [place] coronary artery without angina pectoris Status: Acute Assessment and Plan: * History of 2 stents * Continue home aspirin and statin * Tele monitor * Trend EKG * Cardiology consulted (6) Hypertension: Code(s): I10 - Essential (primary) hypertension Status: Chronic Assessment and Plan: * Current BP is 165/83 * Continue home lisinopril 40mg PO at night, Carvedilol 25mg PO BID * Trend BP * adjust therapy as indicated (7) Hyperlipemia: Code(s): E78.5 - Hyperlipidemia, unspecified Status: Acute Assessment and Plan: * Continue atorvastatin * Lipid panel triglycerides 690, cholesterol 190, LDL 31 (8) Transaminitis: Code(s): R74.01 - Elevation of levels of liver transaminase levels Status: Acute Assessment and Plan: * AST/ALT elevated 42/78 * Hep panel negative * Trend labs (9) Dizziness: Code(s): R42 - Dizziness and giddiness Status: Acute Assessment and Plan: * He has been having some episodes of dizziness * Head ct pending read * Carotid doppler pending read * Echo pending read * He stated that symptoms are better * Could be from elevated glucose, or a fluid shift Time Spent With Patient Time with patient: Greater than 35 minutes Subjective Date/time seen: 10/13/21 13:00 Interval history: 10/13/21 1300 Patient did have an episode of chest pain overnight. He did state that he is feeling better. He did state that the dizziness is better. He also stated that his appetite is better as well. He denies any current shortness of breath, nausea, vomiting, diarrhea, or constipation. 10/12/21? 14:15 Patient is a 66 year
--- NOTE | 2021-10-13 13:00 | PM.IMPN ---
Progress Note: A&P Assessment and Plan (1) Chest pain: Code(s): R07.9 - Chest pain, unspecified Status: Acute Assessment and Plan: reports chest pain with diaphoresis Troponin mildly elevated at 0.053, 0.048, 0.048, flat could be related to renal failure Continue to trend trops Cardiology consulted thank you for your help History of 2 stents EKG does show a lot of changes, with multiple leads showing inverted T-Waves Tele monitor Continue aspirin, and atorvastatin 324mg Aspirin given in the ed Recommending a stress test (2) ESRD on dialysis: Code(s): N18.6 - End stage renal disease; Z99.2 - Dependence on renal dialysis Status: Acute Assessment and Plan: Peritoneal dialysis Current BUN/Cr 42/6.00 Nephrology consulted Nephrology to manage dialysis Trend labs Continue sevelamer, NaBicab (3) Hypothyroid: Code(s): E03.9 - Hypothyroidism, unspecified Status: Acute Assessment and Plan: Continue levothyroxine 112mcg PO daily (4) Diabetes mellitus: Code(s): E11.9 - Type 2 diabetes mellitus without complications Status: Chronic Assessment and Plan: Glucose is 143 Continue home lantus 70 units BID, and lispro 40 units BID Trend glucose A1c ordered ISS Accu cheks Hypoglycemia protocol Adjust therapy as indicated Adjustments made as the patient has not been eating (5) CAD (coronary artery disease): Code(s): I25.10 - Atherosclerotic heart disease of [place] coronary artery without angina pectoris Status: Acute Assessment and Plan: History of 2 stents Continue home aspirin and statin Tele monitor Trend EKG Cardiology consulted (6) Hypertension: Code(s): I10 - Essential (primary) hypertension Status: Chronic Assessment and Plan: Current BP is 165/83 Continue home lisinopril 40mg PO at night, Carvedilol 25mg PO BID Trend BP adjust therapy as indicated (7) Hyperlipemia: Code(s): E78.5 - Hyperlipidemia, unspecified Status: Acute Assessment and Plan: Continue atorvastatin Lipid panel triglycerides 690, cholesterol 190, LDL 31 (8) Transaminitis: Code(s): R74.01 - Elevation of levels of liver transaminase levels Status: Acute Assessment and Plan: AST/ALT elevated 42/78 Hep panel negative Trend labs (9) Dizziness: Code(s): R42 - Dizziness and giddiness Status: Acute Assessment and Plan: He has been having some episodes of dizziness Head ct pending read Carotid doppler pending read Echo pending read He stated that symptoms are better Could be from elevated glucose, or a fluid shift Time Spent With Patient Time with patient: Greater than 35 minutes Subjective Date/time seen: 10/13/21 13:00 Interval history: 10/13/21 1300 Patient did have an episode of chest pain overnight. He did state that he is feeling better. He did state that the dizziness is better. He also stated that his appetite is better as well. He denies any current shortness of breath, nausea, vomiting, diarrhea, or constipation. 10/12/21? 14:15 Patient is a 66 year old male with a past medical history of ESRD with dialysis, HTN, Diabetes, SHABNAM who presented to the ED with complaints of chest pain. ? patient stated that he has been having pain for the last couple of days.? He stated that he went to the doctor today and they sent him here.? He stated that he was having some burning in his epigastric area of his stomach and left-sided chest pain over his left breast.? He stated that it was intermittent and would only last about 1-2 minutes however he would become dizzy and could walk.? He stated that they send on him because he was hot all over and he was having sweats however he did notice that he was sweating.? He also stated that he has
[2021-10-13] MEDS: POTASSIUM CHLORIDE 20 MEQ TABLET 40 MEQ PO (13:13)
[2021-10-13] MEDS: MAGNESIUM SULF 4 GM/WATER100ML 4 GM/100 ML BAG IVPB (13:14)
--- NOTE | 2021-10-13 14:39 | PM.PNCARD ---
Progress Note: A&P Assessment and Plan (1) Chest pain: Code(s): R07.9 - Chest pain, unspecified Status: Acute Assessment and Plan: Atypical but still having some intermittent chest pains. Certainly need to stress test but this can probably be done as an outpatient. However if he wishes to stay until Friday for the stress test to be performed here at [place] as an inpatient, that is reasonable also. (2) End stage renal disease: Code(s): N18.6 - End stage renal disease Status: Chronic (3) CAD (coronary artery disease): Code(s): I25.10 - Atherosclerotic heart disease of [place] coronary artery without angina pectoris Status: Acute Assessment and Plan: Continue current regimen (4) Hypertension: Code(s): I10 - Essential (primary) hypertension Status: Chronic Assessment and Plan: Above goal Subjective Date/time seen: 10/13/21 14:39 Interval history: 66-year-old admitted because of chest pain. Date of service 10/13/2021: Had brief episode of atypical chest pain this morning. No shortness of breath. Review of Systems Constitutional: Constitutional: Reports body ache(s) Eyes: Eyes: Reports no additional eye complaints ENT: Reports system reviewed and no additional complaints, except as documented and Reports neck pain Cardiovascular: Cardiovascular: Reports as per HPI Respiratory: Respiratory: Reports no additional respiratory complaints Gastrointestinal: Gastrointestinal: Reports abdominal pain and Reports bloating Musculoskeletal: Musculoskeletal: Reports neck pain Integumentary/Breasts: Skin/Breast: Reports system reviewed and no additional complaints, except as docu Neurologic: Reports system reviewed and no additional complaints, except as documented Endocrine: Endocrine: Reports no additional endocrine complaints Hematologic/Lymphatic: Hematologic/Lymphatic: Reports no additional hematologic/lymphatic complaints Allergic/Immunologic: Allergic/Immunologic: Reports no additional allergic/immunologic complaints Exam Narrative: Appears stated age Const: General: comfortable and no acute distress Other: Obese man obviously comfortable eating his lunch speaking to his and the nurse no pain a or to symptoms of any kind at this time HENMT: Mouth: Yes moist mucous membranes Eyes: Sclera: sclerae normal Neck: Neck: supple and no JVD Other: Carotid pulses are normal bilaterally there are no audible bruits Resp: Effort & Inspection: normal respiratory effort Auscultation: clear to auscultation bilaterally Other: Breath sounds are clear throughout somewhat diminished because of his size but no rales no rhonchi no wheezing or audible Cardio: Rate: regular rate Rhythm: regular rhythm Other: PMI is not palpable first and second heart sounds normal no murmur no gallop GI: Auscultation: normal bowel sounds Skin: General skin exam: normal color Neuro: Speech: normal speech Other: Alert and oriented, normal cognition Extrem: General: no edema Other: Adequate perfusion Psych: Mental Status: mental status grossly normal Objective Data Vital Signs Vital Signs: Vital Signs - 24 hr 10/12/21 14:40 10/12/21 16:00 10/12/21 16:00 Temperature 37.1 C 36.7 C Pulse Rate 51 L 56 L Respiratory Rate 20 16 Blood Pressure 143/71 H 163/65 H Pulse Oximetry 98 97 Oxygen Delivery Room Air 10/12/21 16:00 10/12/21 18:00 10/12/21 19:48 Temperature 36.6 C Pulse Rate 52 L 62 57 L Respiratory Rate 18 Blood Pressure 159/77 H Pulse Oximetry 99 Oxygen Delivery 10/12/21 20:32 10/12/21 22:49 10/12/21 22:50 Temperature Pulse Rate 59 L 47 L Respiratory Rate Blood Pressure Pulse Oximetry 97 97 Oxygen Delivery Room Air 10/12/21 23:48 10/12/21 20:00 10/12/21 20:00 Temperature 36.8 C Pulse Rate 49 L 57 L 55 L Respiratory Rate 16 18 Blood Pressure 150/79 H Pulse Oximetry 97 99
[2021-10-13 16:34] LABS: Glucose Point of Care 261 mg/dl (65-105)
[2021-10-13] MEDS: INSULIN ASPART (*BKC) 100 UNITS/ML 40 UNITS SUB-Q (17:08)
[2021-10-13 20:05] LABS: Glucose Point of Care 264 mg/dl (65-105)
[2021-10-13] MEDS: lisinopriL 20 MG TABLET 40 MG PO (21:03)
[2021-10-13] MEDS: ATORVASTATIN 40 MG TABLET 80 MG PO (21:04)
[2021-10-13] MEDS: PANTOPRAZOLE 40 MG TABLET PO (21:05)
[2021-10-13] MEDS: ACETAMINOPHEN 325 MG TABLET 650 MG PO (21:05)
[2021-10-13] MEDS: INSULIN GLARGINE (*BKC) 100 UNITS/ML 70 UNITS SUB-Q (21:06)
[2021-10-13] MEDS: LORazepam (*CRX) 0.5 MG TABLET PO (21:06)
[2021-10-14] VITALS (8 sets, daily range): BP systolic 141–160; BP diastolic 71–82; PULSE 48–66; RESP 16–20; TEMP 36.7–37.4; O2SAT 98–100
[2021-10-14] MEDS: SEVELAMER CARBONATE 800 MG TABLET PO ×2 (06:09→12:31)
[2021-10-14] MEDS: LEVOTHYROXINE SODIUM 112 MCG TABLET PO (06:09)
[2021-10-14] MEDS: WATER FOR IRRIGATION, STERILE 1,000 ML BOTTLE 1000 ML (06:12)
[2021-10-14 08:39] LABS: Glucose Point of Care 190 mg/dl (65-105)
[2021-10-14 09:08] LABS: Basophils Percent Auto 0.1 % (0.2-1.2); Eosinophils Percent Auto 0.1 % (0-4.4); Hematocrit 32.7 % (42.0-52.0); Hemoglobin 10.9 g/dL (14.0-18.0); Immature Granulocyte Absolute 0.33 K/mm3 (0.00-0.031); Immature Granulocyte Percent A 4.1 % (0-0.5); Lymphocytes Absolute Auto 1.01 K/mm3 (0.9-3.2); Lymphocytes Percent Auto 12.5 % (18.3-44.2); Mean Corpuscular HGB Conc 33.3 g/dl (32-36); Mean Corpuscular Hemoglobin 30.2 pg (26-34); Mean Corpuscular Volume 90.6 fl (80-100); Neutrophils Absolute Auto 5.8 K/mm3 (1.3-6.7); Neutrophils Percent Auto 71.2 % (45.5-73.1); Platelet Count Result 146 k/mm3 (150-375); Red Blood Count 3.61 M/mm3 (4.6-6.20); Red Cell Distribution Width 15.4 % (11.5-14.5); White Blood Count 8.1 K/mm3 (4.5-10.0)
[2021-10-14 09:20] LABS: Alanine Aminotransferase 59 U/L (6-50); Alkaline Phosphatase 131 U/L (38-126); Anion Gap 15 mmol/L (8-16); Aspartate Amino Transferase 33 U/L (17-59); Bilirubin,Total 0.6 mg/dL (0.2-1.3); Blood Urea Nitrogen 42 mg/dL (9-20); Calcium 7.8 mg/dL (8.4-10.2); Carbon Dioxide 26 mmol/L (22-30); Chloride 96 mmol/L (98-107); Estimated CRCL calculation 14 ml/min; Estimated Glomerular Filt Rate 10; Glucose 181 mg/dL (65-110); Magnesium 2.1 mg/dL (1.6-2.3); Potassium 3.6 mmol/L (3.4-5.0); Sodium 137 mmol/L (137-145)
[2021-10-14] MEDS: ASPIRIN 81 MG ENTERIC TABLET PO (09:25)
[2021-10-14] MEDS: CHOLECALCIFEROL 1,000 UNITS TABLET 4000 UNITS PO (09:25)
[2021-10-14] MEDS: OPTI-GEN TAB 1 TABLET PO (09:25)
[2021-10-14] MEDS: carvediloL 25 MG TABLET PO (09:26)
[2021-10-14] MEDS: PANTOPRAZOLE 40 MG TABLET PO (09:26)
[2021-10-14] MEDS: SODIUM BICARBONATE TAB 650 MG TABLET PO (09:26)
[2021-10-14] MEDS: FUROSEMIDE 40 MG TABLET 80 MG PO (09:27)
[2021-10-14] MEDS: HEPARIN SODIUM 5,000 UNITS/ML VIAL 5000 UNITS SUB-Q (09:27)
[2021-10-14] MEDS: INSULIN GLARGINE (*BKC) 100 UNITS/ML 70 UNITS SUB-Q (09:51)
--- NOTE | 2021-10-14 11:01 | PM.PNCARD ---
Progress Note: A&P Assessment and Plan (1) Chest pain: Code(s): R07.9 - Chest pain, unspecified Status: Acute Assessment and Plan: Atypical but still having some intermittent chest pains. Certainly need to stress test but this can probably be done as an outpatient. Offered that he stay until tomorrow for inpatient stress test but he wants to go home. 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 Date of service 10/13/2021: Had brief episode of atypical chest pain this morning. No shortness of breath. Date of service 10/14/2021: No chest pain today. No shortness of breath. Wants to go home Review of Systems Constitutional: Constitutional: Reports body ache(s) Eyes: Eyes: Reports no additional eye complaints ENT: Reports system reviewed and no additional complaints, except as documented and Reports neck pain Cardiovascular: Cardiovascular: Reports as per HPI Respiratory: Respiratory: Reports no additional respiratory complaints Gastrointestinal: Gastrointestinal: Reports abdominal pain and Reports bloating Musculoskeletal: Musculoskeletal: Reports neck pain Integumentary/Breasts: Skin/Breast: Reports system reviewed and no additional complaints, except as docu Neurologic: Reports system reviewed and no additional complaints, except as documented Endocrine: Endocrine: Reports no additional endocrine complaints Hematologic/Lymphatic: Hematologic/Lymphatic: Reports no additional hematologic/lymphatic complaints Allergic/Immunologic: Allergic/Immunologic: Reports no additional allergic/immunologic complaints Exam Narrative: Appears stated age Const: General: comfortable and no acute distress Other: Obese man obviously comfortable eating his lunch speaking to his and the nurse no pain a or to symptoms of any kind at this time HENMT: Mouth: Yes moist mucous membranes Eyes: Sclera: sclerae normal Neck: Neck: supple and no JVD Other: Carotid pulses are normal bilaterally there are no audible bruits Resp: Effort & Inspection: normal respiratory effort Auscultation: clear to auscultation bilaterally Other: Breath sounds are clear throughout somewhat diminished because of his size but no rales no rhonchi no wheezing or audible Cardio: Rate: regular rate Rhythm: regular rhythm Other: PMI is not palpable first and second heart sounds normal no murmur no gallop GI: Auscultation: normal bowel sounds Skin: General skin exam: normal color Neuro: Speech: normal speech Other: Alert and oriented, normal cognition Extrem: General: no edema Other: Adequate perfusion Psych: Mental Status: mental status grossly normal Objective Data Vital Signs Vital Signs: Vital Signs - 24 hr 10/13/21 12:00 10/13/21 12:00 10/13/21 12:00 Temperature 36.8 C Pulse Rate 58 L 58 L Respiratory Rate 16 Blood Pressure 165/83 H Pulse Oximetry 99 Oxygen Delivery Room Air 10/13/21 14:00 10/13/21 16:00 10/13/21 16:00 Temperature 36.8 C Pulse Rate 56 L 59 L Respiratory Rate 20 Blood Pressure 168/70 H Pulse Oximetry 97 Oxygen Delivery Room Air 10/13/21 16:00 10/13/21 18:00 10/13/21 20:00 Temperature 36.3 C L Pulse Rate 54 L 65 55 L Respiratory Rate 16 Blood Pressure 156/77 H Pulse Oximetry
[2021-10-14 11:53] LABS: Glucose Point of Care 338 mg/dl (65-105)
--- NOTE | 2021-10-14 12:04 | PM.PNNEP ---
Progress Note: A&P Assessment and Plan (1) End stage renal disease: Code(s): N18.6 - End stage renal disease Status: Chronic Assessment and Plan: tolerated CCPD overnight continue CCPD while hospitalized and resume at home on discharge follow electrolytes, volume status, and clearance (2) Chest pain: Code(s): R07.9 - Chest pain, unspecified Status: Acute Assessment and Plan: as noted by presentation associated with diaphoresis Cardiology recommendations noted history of 2 stents outpatient stress test (3) Hypertension: Code(s): I10 - Essential (primary) hypertension Status: Chronic Assessment and Plan: reasonable control continue home medications follow trend of hemodynamics (4) Anemia: Code(s): D64.9 - Anemia, unspecified Status: Chronic Assessment and Plan: H/H at goal for ESRD follow trend of H/H start Epogen if Hgb drops below 10 (5) Diabetes mellitus: Code(s): E11.9 - Type 2 diabetes mellitus without complications Status: Chronic Assessment and Plan: follow accuchecks glycemic control Will continue to follow. Subjective Date/time seen: 10/14/21 12:04 Tolerated peritoneal dialysis treatment overnight without any issues or problems; noted plans for discharge with tentative plan for outpatient stress test; no other issues/events overnight or earlier this morning; no apparent distress either. Exam Narrative: General: WD/WN male in NAD Heart: normal S1 and S2; no rub Lungs: clear to auscultation Abdomen: soft, nontender, nondistended, positive bowel sounds Extremities: no cyanosis or clubbing; no edema Skin: warm and dry Objective Data Vital Signs Vital Signs: Vital Signs Temp Pulse Resp BP Pulse Ox O2 Del Method 10/14/21 12:00 36.8 C 56 L 20 144/71 H 100 10/14/21 12:00 Room Air 10/14/21 10:00 66 10/14/21 09:55 Room Air 10/14/21 08:00 58 L 16 98 Room Air 10/14/21 09:26 58 L 10/14/21 08:00 36.7 C 58 L 16 160/82 H 98 10/14/21 08:00 53 L 10/14/21 06:00 51 L 10/14/21 04:00 37.4 C 54 L 16 141/72 H 100 10/14/21 04:00 99 Room Air 10/14/21 04:00 Room Air 10/14/21 04:00 50 L 10/13/21 23:40 63 94 10/14/21 02:00 58 L 10/14/21 00:00 99 Room Air 10/14/21 00:00 Room Air 10/14/21 00:00 48 L 10/13/21 23:35 37.2 C 53 L 16 148/74 H 99 10/13/21 22:00 58 L 10/13/21 20:00 97 Room Air 10/13/21 20:00 Room Air 10/13/21 20:00 64 10/13/21 21:04 53 L 10/13/21 20:00 36.3 C L 55 L 16 156/77 H 97 10/13/21 18:00 65 Intake/Output Intake/Output: Intake & Output 10/11/21 10/12/21 10/13/21 10/14/21 23:59 23:59 23:59 23:59 Intake Total 540 1440 660 Output Total 3505 Balance 540 -2065 660 Meds/Results Radiology Results: ITS Impressions Chest X-Ray 10/12/21 10:58 IMPRESSION: 1: NO ACUTE CARDIOPULMONARY DISEASE. Head CT 10/13/21 15:46 IMPRESSION: No acute intracranial process. Enlarged pituitary, consider referral for outpatient MRI of the pituitary. Carotid Doppler Study 10/14/21 10:38 IMPRESSION: 1. <50% stenosis in the right internal carotid artery. 2. <50% stenosis in the left internal carotid artery. Labs Labs: Laboratory Tests 10/14/21 08:54 10/14/21 08:54 Quality Patient tolerated peritoneal dialysis overnight ([id number]).
--- NOTE | 2021-10-14 12:15 | P.DS_ITS ---
DS: Admitting Diagnosis Discharge Date 10/14/21 1215 Admitting Diagnosis Chest pain DS: Discharge Diagnosis Discharge Diagnosis (1) Chest pain: Code(s): R07.9 - Chest pain, unspecified Status: Acute Assessment and Plan: * reports chest pain with diaphoresis * Troponin mildly elevated at 0.053, 0.048, 0.048, flat could be related to renal failure * Continue to trend trops * Cardiology consulted thank you for your help * History of 2 stents * EKG does show a lot of changes, with multiple leads showing inverted T-Waves * Tele monitor * Continue aspirin, and atorvastatin * 324mg Aspirin given in the ed * will need a stress test outpatient (2) ESRD on dialysis: Code(s): N18.6 - End stage renal disease; Z99.2 - Dependence on renal dialysis Status: Acute Assessment and Plan: * Peritoneal dialysis * Current BUN/Cr 42/5.90 * Nephrology consulted * Nephrology to manage dialysis * Trend labs * Continue sevelamer, NaBicab (3) Hypothyroid: Code(s): E03.9 - Hypothyroidism, unspecified Status: Acute Assessment and Plan: * Continue levothyroxine 112mcg PO daily (4) Diabetes mellitus: Code(s): E11.9 - Type 2 diabetes mellitus without complications Status: Chronic Assessment and Plan: * Glucose is 181 * Continue home lantus 70 units BID, and lispro 40 units BID * Trend glucose * A1c ordered * ISS * Accu cheks * Hypoglycemia protocol * Adjust therapy as indicated * Adjustments made as the patient has not been eating (5) CAD (coronary artery disease): Code(s): I25.10 - Atherosclerotic heart disease of [place] coronary artery without angina pectoris Status: Acute Assessment and Plan: * History of 2 stents * Continue home aspirin and statin * Tele monitor * Trend EKG * Cardiology consulted (6) Hypertension: Code(s): I10 - Essential (primary) hypertension Status: Chronic Assessment and Plan: * Current BP is 160/82 * Continue home lisinopril 40mg PO at night, Carvedilol 25mg PO BID * Trend BP * adjust therapy as indicated (7) Hyperlipemia: Code(s): E78.5 - Hyperlipidemia, unspecified Status: Acute Assessment and Plan: * Continue atorvastatin * Lipid panel triglycerides 690, cholesterol 190, LDL 31 (8) Transaminitis: Code(s): R74.01 - Elevation of levels of liver transaminase levels Status: Acute Assessment and Plan: * AST/ALT elevated 33/59 * Trending down * Hep panel negative * Trend labs DS: Summary Hospital Course Hospital Course: Patient is 66-year-old male with past medical history of end-stage renal disease, hypertension, diabetes who presented to the ED with complaints of intermittent chest pain. Patient was also stating that was having a lot of epigastric abdominal pain. Troponins were noted to be initially elevated at 0.053 and have went down to 0.048 x 2. Cardiology was consulted however patient remained stable. Cardiology confirmed that patient's EKG did not show any coronary type problems or issues. Patient was given a GI cocktail for abdominal pain. Head CT which did not show any abnormalities and carotid Dopplers which showed <50% stenosis were done for patient because he was complaining of dizziness.
--- NOTE | 2021-10-14 12:15 | PM.DS ---
DS: Admitting Diagnosis Discharge Date 10/14/21 1215 Admitting Diagnosis Chest pain DS: Discharge Diagnosis Discharge Diagnosis (1) Chest pain: Code(s): R07.9 - Chest pain, unspecified Status: Acute Assessment and Plan: reports chest pain with diaphoresis Troponin mildly elevated at 0.053, 0.048, 0.048, flat could be related to renal failure Continue to trend trops Cardiology consulted thank you for your help History of 2 stents EKG does show a lot of changes, with multiple leads showing inverted T-Waves Tele monitor Continue aspirin, and atorvastatin 324mg Aspirin given in the ed will need a stress test outpatient (2) ESRD on dialysis: Code(s): N18.6 - End stage renal disease; Z99.2 - Dependence on renal dialysis Status: Acute Assessment and Plan: Peritoneal dialysis Current BUN/Cr 42/5.90 Nephrology consulted Nephrology to manage dialysis Trend labs Continue sevelamer, NaBicab (3) Hypothyroid: Code(s): E03.9 - Hypothyroidism, unspecified Status: Acute Assessment and Plan: Continue levothyroxine 112mcg PO daily (4) Diabetes mellitus: Code(s): E11.9 - Type 2 diabetes mellitus without complications Status: Chronic Assessment and Plan: Glucose is 181 Continue home lantus 70 units BID, and lispro 40 units BID Trend glucose A1c ordered ISS Accu cheks Hypoglycemia protocol Adjust therapy as indicated Adjustments made as the patient has not been eating (5) CAD (coronary artery disease): Code(s): I25.10 - Atherosclerotic heart disease of [place] coronary artery without angina pectoris Status: Acute Assessment and Plan: History of 2 stents Continue home aspirin and statin Tele monitor Trend EKG Cardiology consulted (6) Hypertension: Code(s): I10 - Essential (primary) hypertension Status: Chronic Assessment and Plan: Current BP is 160/82 Continue home lisinopril 40mg PO at night, Carvedilol 25mg PO BID Trend BP adjust therapy as indicated (7) Hyperlipemia: Code(s): E78.5 - Hyperlipidemia, unspecified Status: Acute Assessment and Plan: Continue atorvastatin Lipid panel triglycerides 690, cholesterol 190, LDL 31 (8) Transaminitis: Code(s): R74.01 - Elevation of levels of liver transaminase levels Status: Acute Assessment and Plan: AST/ALT elevated 33/59 Trending down Hep panel negative Trend labs DS: Summary Hospital Course Hospital Course: Patient is 66-year-old male with past medical history of end-stage renal disease, hypertension, diabetes who presented to the ED with complaints of intermittent chest pain. Patient was also stating that was having a lot of epigastric abdominal pain. Troponins were noted to be initially elevated at 0.053 and have went down to 0.048 x 2. Cardiology was consulted however patient remained stable. Cardiology confirmed that patient's EKG did not show any coronary type problems or issues. Patient was given a GI cocktail for abdominal pain. Head CT which did not show any abnormalities and carotid Dopplers which showed <50% stenosis were done for patient because he was complaining of dizziness. Patient states the dizziness has gotten a lot better and he is eating and states that his appetite is lot better than has been. He denies any shortness of breath, abdominal pain, nausea, vomiting, diarrhea, constipation. Patient did state that he did have some chest pain over his left breast however it is very quick to resolve. Glucoses have noted been better and a currently 143. I did instruct patient to increase his Protonix to twice a day as he is having uncontrolled GERD. Plan of care was reviewed with patient patient does not understand and agree. Status at Discharge Functional status at discharge: ind
[2021-10-14] MEDS: INSULIN ASPART (*BKC) 100 UNITS/ML 40 UNITS SUB-Q (12:31)
[2021-10-14] MEDS: INSULIN ASPART (*BKC) 100 UNITS/ML SUB-Q (12:32)
== END 2021-10-14 12:06 | disposition home or self-care (01) ==
LOC: ANHED 10:46 → ANHIMU 18:46
PROVIDERS: Internal Medicine Nephrology; Admitting Provider Internal Medicine; Emergency Provider Emergency Medicine; PCP Family Medicine; Visit Provider Nurse Practitioner
DX: R07.9 Chest pain, unspecified (principal); R77.8 Other specified abnormalities of plasma proteins; R61 Generalized hyperhidrosis; I13.0 Hypertensive heart and chronic kidney disease with heart failure and stage 1 through stage 4 chronic kidney disease, or unspecified chronic kidney disease; I50.32 Chronic diastolic (congestive) heart failure; N18.4 Chronic kidney disease, stage 4 (severe); Z99.2 Dependence on renal dialysis; E03.9 Hypothyroidism, unspecified; E11.22 Type 2 diabetes mellitus with diabetic chronic kidney disease; D63.1 Anemia in chronic kidney disease; I25.10 Atherosclerotic heart disease of native coronary artery without angina pectoris; E78.5 Hyperlipidemia, unspecified; Z95.5 Presence of coronary angioplasty implant and graft; R74.01 Elevation of levels of liver transaminase levels; R10.13 Epigastric pain; F41.9 Anxiety disorder, unspecified; K21.9 Gastro-esophageal reflux disease without esophagitis; Z20.822 Contact with and (suspected) exposure to COVID-19; R97.20 Elevated prostate specific antigen [PSA]; I45.10 Unspecified right bundle-branch block; G47.33 Obstructive sleep apnea (adult) (pediatric); R00.1 Bradycardia, unspecified; Z90.5 Acquired absence of kidney; Z90.49 Acquired absence of other specified parts of digestive tract; R42 Dizziness and giddiness; I08.3 Combined rheumatic disorders of mitral, aortic and tricuspid valves; R93.0 Abnormal findings on diagnostic imaging of skull and head, not elsewhere classified; Z85.528 Personal history of other malignant neoplasm of kidney; Z86.16 Personal history of COVID-19; Z79.82 Long term (current) use of aspirin; Z79.4 Long term (current) use of insulin; Z79.899 Other long term (current) drug therapy
CPT/HCPCS: 36415; 70450; 71046; 80053; 80061; 80074; 82948; 83036; 83690; 83735; 84484; 85025; 85610; 85730; 86706; 87340; 90945; 93005; 93306; 93880; 96372; 96374; 99285; A9270; C9803; G0378; J1644; J1650; J1815; J3475; U0003; U0005

== ENCOUNTER 2022-02-06 15:29 | Outpatient (CLI) | payer MEDICARE, SELFPAY ==
[2022-02-06 16:25] LABS: Influenza A QL RT-PCR Negative (Negative); Influenza B QL RT-PCR Negative (Negative); SARS-CoV-2 RNA PCR Positive
== END 2022-02-06 15:30 | disposition home or self-care (01) ==
LOC: ANHLAB 15:30
PROVIDERS: PCP Family Medicine; Visit Provider Physician Assistant
DX: U07.1 COVID-19 (principal); R09.81 Nasal congestion; R53.83 Other fatigue
CPT/HCPCS: 87636

== ENCOUNTER 2022-02-12 08:55 | Emergency (ER) | payer MEDICARE, SELFPAY ==
--- NOTE | ~2022-02-12 | XR_ITS ---
Clinical Indication: Cough, post Covid infection PA and lateral views of the chest: Comparison: 10/12/2021 Findings: Stable calcified right upper lobe granuloma noted. The lungs are otherwise clear, without e vidence of focal consolidation or pleural effusion. Cardiomediastinal silhouette is within normal li mits. Bones and soft tissues are unremarkable. Impression: No significant abnormality. Reviewed, dictated and finalized at location . 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
[2022-02-12 09:18] VITALS: BP 145/75; PULSE 70; RESP 16; TEMP 35.9; O2SAT 99
--- NOTE | 2022-02-12 09:58 | ED.URI ---
HPI - URI/Sore Throat General Chief Complaint: Upper Respiratory Infection Stated Complaint: cough +covid 7days ago Time Seen by Provider: 02/12/22 09:58 Source: patient and RN notes reviewed Mode of arrival: ambulatory Limitations: no limitations History of Present Illness HPI Narrative: 67-year-old male with NIDDM-IR following w/ endo, h/o pituitary mass, HTN, ESRD on peritoneal dialysis, HLD, CAD s/p stents, chronic diastolic CHF, hypothyroidism, GERD presented for complaint of cough for over week. States cough is productive and forceful, often times feeling like he is going to vomit. He endorses testing positive for COVID 6 days ago. He denies increase in shortness of breath, chest pain, lethargy, nausea, vomiting, diarrhea, fever chills at this time. He endorses having some wheezing yesterday. He took molnupiravir per PCP. MD elicited complaint: cough Related Data Home Medications Medication Instructions Recorded Confirmed aspirin 81 mg tablet,delayed 81 mg PO DAILY 02/01/19 02/12/22 release (Sami Low Dose Aspirin) cholecalciferol (vitamin D3) 50 4,000 unit PO DAILY 02/01/19 02/12/22 mcg (2,000 unit) tablet sodium bicarbonate 650 mg PO BID 02/01/19 02/12/22 vit C 250 mg-vit E 200 unit-zinc 1 tablet PO BID 02/01/19 02/12/22 12.5 mg-copper 1 dg-lbq-ngcqsb tablet (ICaps AREDS2 (copper citrate)) blood sugar diagnostic (OneTouch 05/14/19 02/12/22 Ultra Blue Test Strip) carvedilol 25 mg tablet (Coreg) 25 mg PO BID 09/06/19 02/12/22 furosemide 40 mg tablet (Lasix) 80 mg PO BID 09/06/19 02/12/22 lisinopril 20 mg tablet 40 mg PO HS 09/02/20 02/12/22 pantoprazole 40 mg tablet,delayed 40 mg PO HS 04/29/21 02/12/22 release sevelamer carbonate 800 mg tablet 800 mg PO AC 04/29/21 02/12/22 insulin glargine 100 unit/mL (3 70 unit subcut BID 10/12/21 02/12/22 mL) subcutaneous pen (Basaglar KwikPen U-100 Insulin) Allergies Allergy/AdvReac Type Severity Reaction Status Date / Time No Known Allergies Allergy Unknown Verified 02/12/22 09:48 Review of Systems Review of Systems: per HPI [facility] Past Medical History Medical History 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 Adult hypothyroidism Anemia Anxiety Chronic diastolic (congestive) heart failure Chronic GERD Chronic kidney disease, stage 4 (severe) COVID-19 Diabetes Dysphagia History of kidney cancer Hy kid NOS w cr kid I-IV Hypercholesterolemia Hypertension Increased prostate specific antigen (PSA) velocity Left kidney mass Neoplasm of kidney SHABNAM (obstructive sleep apnea) Pituitary tumor Rhinitis Urinary tract infection Viral URI Surgical History Surgical History Adenoma of pituitary History of cholecystectomy History of partial nephrectomy Status post left cataract extraction Status post right knee replacement Status post total right knee replacement Stented coronary artery Family History Family History Mother Hypertension Cerebrovascular accident Father Family history of malignant neoplasm Carcinoma of colon Social History Social History Social History: Patient lives at home with his Harriet who will be his surrogate. Patient a nonsmoker and drinks very rarely they deny having any pets and patient is [employer]. Patient wishes to be a full code at this time. Smoking status: Never smoker Second hand tobacco smoke exposure: No Alcohol intake: current Alcohol use details: rare, holidays Substance use: never Substance use type: does not use Additional occupation/education comments: [employer] Gender identity (if verbalized by the patient): Male Sexual Orientation (if Verbalized by the Patient): Straight or Heterosexual Spiritual care concerns: No Agree
== END 2022-02-12 11:04 | disposition home or self-care (01) ==
PROVIDERS: Emergency Provider Nurse Practitioner Family; PCP Family Medicine
DX: B34.9 Viral infection, unspecified (principal); I13.2 Hypertensive heart and chronic kidney disease with heart failure and with stage 5 chronic kidney disease, or end stage renal disease; E11.22 Type 2 diabetes mellitus with diabetic chronic kidney disease; N18.6 End stage renal disease; I50.32 Chronic diastolic (congestive) heart failure; Z99.2 Dependence on renal dialysis; Z79.4 Long term (current) use of insulin; E03.9 Hypothyroidism, unspecified; K21.9 Gastro-esophageal reflux disease without esophagitis; Z86.16 Personal history of COVID-19; E78.00 Pure hypercholesterolemia, unspecified; I25.10 Atherosclerotic heart disease of native coronary artery without angina pectoris; Z95.5 Presence of coronary angioplasty implant and graft; Z85.528 Personal history of other malignant neoplasm of kidney
CPT/HCPCS: 71046; 99213; G0463

== ENCOUNTER 2022-06-19 11:32 | Outpatient (CLI) | payer MEDICARE, SELFPAY ==
--- NOTE | ~2022-06-19 | XR_ITS ---
Left Shoulder Technique: AP and scapular Y, and axillary views were obtained. Clinical History: Pain Findings: No fracture or dislocation is seen. Osseous alignment is anatomic. The glenohumeral and acr omioclavicular joint spaces are preserved. Soft tissues are unremarkable. Impression: Unremarkable left shoulder radiographs. Reviewed, dictated and finalized at [facility]. Impression: Unremarkable left shoulder radiographs.
== END 2022-06-19 11:33 | disposition home or self-care (01) ==
LOC: ANHIMG 11:35
PROVIDERS: PCP Family Medicine; Visit Provider Physician Assistant
DX: M25.512 Pain in left shoulder (principal)
CPT/HCPCS: 73030

== ENCOUNTER 2022-08-27 12:30 | Outpatient (CLI) | payer MEDICARE, SELFPAY ==
--- NOTE | ~2022-08-27 | US_ITS ---
EXAMINATION: US carotid duplex BI DATE: 08/27/2022 13:11 INDICATION: Anesthesia of skin. TECHNIQUE: Grayscale, color Doppler, and pulsed Doppler images of the cervical carotid arteries were obtained. The degree of vessel stenosis is placed in one of the following categories: normal, <50%, 5 0-69%, >=70% but less than near-occlusion, near-occlusion, or total occlusion. Note that percent sten osis relative to normal distal artery lumen diameter is indirectly measured from velocity measurement s as described by Sohail, et al. Radiology 2003; 229:340-346. COMPARISON: Ultrasound 10/13/2021 FINDINGS: RIGHT: The right common carotid artery (CCA) peak systolic velocity (PSV) is 80 cm/s. The right internal car otid artery (ICA) PSV is 55 cm/s. The right ICA end-diastolic velocity (EDV) is 18 cm/s. The right IC A/CCA PSV ratio is 0.7. Grayscale and color Doppler images yield an estimate of <50% diameter reducti on from plaque in the ICA. There is antegrade flow in the right vertebral artery. LEFT: The left CCA PSV is 81 cm/s. The left ICA PSV is 64 cm/s. The left ICA EDV is 16 cm/s. The left ICA/C CA PSV ratio is 0.8. Grayscale and color Doppler images yield an estimate of <50% diameter reduction from plaque in the ICA. There is antegrade flow in the left vertebral artery. IMPRESSION: 1. <50% stenosis in the right internal carotid artery. 2. <50% stenosis in the left internal carotid artery. Reviewed, dictated and finalized at location E.
== END 2022-08-27 12:31 | disposition home or self-care (01) ==
PROVIDERS: PCP Family Medicine; Visit Provider Family Medicine
DX: G45.9 Transient cerebral ischemic attack, unspecified (principal); R20.0 Anesthesia of skin; I65.23 Occlusion and stenosis of bilateral carotid arteries
CPT/HCPCS: 93880

== ENCOUNTER 2022-10-04 09:26 | Outpatient (CLI) | payer MEDICARE, SELFPAY ==
--- NOTE | ~2022-10-04 | NM_ITS ---
EXAM: NM gastric emptying study DATE: 10/04/2022 14:17 INDICATION: Nausea with vomiting. TECHNIQUE: A gastric emptying study was performed using the methodology of Jasmin OLVERA, et al. J Nucl Med 2007; 48:568-572. The patient was given a meal consisting of 2 scrambled eggs labeled with 1.011 mCi Tc-99m sulfur colloid, 2 slices of toast, two packages of jam, and approximately 120 mL of water . Simultaneous anterior and posterior 1-min images of the abdomen were obtained with the patient supi ne at multiple time points over a total period of 4 hours. The geometric mean of anterior and posteri or views was determined, and the percentage retention was calculated for each time point. COMPARISON: None. FINDINGS: Gastric retention of the radiotracer-labeled meal was 87%, 77%, and 55% at the 1-hour, 2-h our, and 4-hour time points, respectively. With this technique, apparent rapid gastric emptying is carson ggested by <30% gastric retention at 1 hour. Delayed gastric emptying is defined by gastric retention of >90% at 1 hour, >60% retention at 2 hours, or >10% retention at 4 hours. IMPRESSION: 1. Delayed gastric emptying. Reviewed, dictated and finalized at location A.
== END 2022-10-04 09:27 | disposition home or self-care (01) ==
PROVIDERS: PCP Family Medicine; Visit Provider Nurse Practitioner Family
DX: R11.2 Nausea with vomiting, unspecified (principal); K30 Functional dyspepsia
CPT/HCPCS: 78264; A9541

== ENCOUNTER 2022-10-11 01:42 | Day surgery (SDC) | payer MEDICARE, SELFPAY ==
[2022-10-01 15:57] VITALS: BMI 34.1
--- NOTE | 2022-10-11 10:53 | WPDANESEPPF ---
Anes - Initial Pre Proc Eval Procedure: Operation Date: 10/11/22 11:45 Proposed Procedures p Esophagogastroduodenoscopy - Eric Brady MD Date/Time: 10/11/22 10:53 Surgeon: Eric Brady MD Pre Op Diagnosis: nausea, vomiting Patient Data Age: 67 Gender: M Height: 1.78 m Weight: 108 kg Allergies Allergy/AdvReac Type Severity Reaction Status Date / Time No Known Allergies Allergy Unknown Verified 10/01/22 15:57 Home Medications Medication Instructions Recorded Confirmed Type blood-glucose meter (Advisor Client MatchTouch #1 ea 12/23/18 09/24/22 Rx Ultra2 Meter) lancets 30 gauge (Advisor Client MatchTouch Delica #100 ea 12/23/18 09/24/22 Rx Lancets) aspirin 81 mg tablet,delayed 81 mg PO DAILY 02/01/19 10/01/22 History release (Sami Low Dose Aspirin) vit C 250 mg-vit E 200 unit-zinc 1 tablet PO BID 02/01/19 10/01/22 History 12.5 mg-copper 1 gx-vhv-xvyoti tablet (ICaps AREDS2 (copper citrate)) blood sugar diagnostic (OneTouch 05/14/19 09/24/22 History Ultra Blue Test Strip) carvedilol 25 mg tablet (Coreg) 25 mg PO BID 09/06/19 10/01/22 History pen needle, diabetic 32 gauge x #200 ea 09/06/19 09/24/22 Rx 1/4 (BD Ultra-Fine Micro Pen Needle) sevelamer carbonate 800 mg tablet 800 mg PO AC 04/29/21 10/01/22 History diltiazem HCl 240 mg capsule,24 240 mg PO DAILY #90 caps 10/12/21 10/01/22 Rx hr,extended release insulin glargine 100 unit/mL (3 50 unit subcut BID 10/12/21 10/01/22 History mL) subcutaneous pen (Basaglar KwikPen U-100 Insulin) sodium bicarbonate 650 mg tablet 650 mg PO BID #200 tabs 05/27/22 10/01/22 Rx lisinopril 20 mg tablet 20 mg PO HS 08/12/22 10/01/22 History potassium chloride 10 mEq 10 meq PO DAILY 08/12/22 10/01/22 History capsule,extended release levothyroxine 112 mcg tablet 112 mcg PO DAILY #90 tabs 08/21/22 10/01/22 Rx atorvastatin 80 mg tablet 80 mg PO DAILY 10/01/22 10/01/22 History cholecalciferol (vitamin D3) 125 125 mcg PO DAILY 10/01/22 10/01/22 History mcg (5,000 unit) tablet (Vitamin D3) fenofibrate nanocrystallized 145 145 mg PO DAILY 10/01/22 10/01/22 History mg tablet folic acid 0.8 mg-vit B comp with 1 tablet PO DAILY 10/01/22 10/01/22 History W-kbqt-iokofbx D3 2,000 unit tablet (Dialyvite 800-Ultra D) furosemide 80 mg tablet 80 mg PO BID 10/01/22 10/01/22 History guanfacine 3 mg tablet,extended 3 mg PO HS 10/01/22 10/01/22 History release 24 hr insulin aspart U-100 100 unit/mL subcut 10/01/22 History (3 mL) subcutaneous pen (Novolog FlexPen U-100 Insulin aspart) lorazepam 0.5 mg tablet (Ativan) 0.5 mg PO HS PRN Anxiety 10/01/22 10/01/22 History pantoprazole 40 mg tablet,delayed 40 mg PO DAILY 10/01/22 10/01/22 History release tamsulosin 0.4 mg capsule 0.4 mg PO HS 10/01/22 10/01/22 History tirzepatide 2.5 mg/0.5 mL 2.5 mg subcut WEEKLY 10/01/22 10/01/22 History subcutaneous pen injector (Mounjaro) Patient hx anesthesia problems: none Family hx anesthesia problems: none Results Review: All pre-operative results and documents have been reviewed as part of the pre-operative evaluation. 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 Adult hypothyroidism Anemia Anxiety Chronic diastolic (congestive) heart failure Chronic GERD Chronic kidney disease, stage 4 (severe) COVID-19 Diabetes Dysphagia History of kidney cancer Hy kid NOS w cr kid I-IV Hypercholesterolemia Hypertension Increased prostate specific antigen (PSA) velocity Left kidney mass Neoplasm of kidney SHABNAM (obstructive sleep apnea) Pituitary tumor Rhinitis Urinary tract infection Viral URI Surgical History Surgical History Adenoma of pituitary History of cholecystectomy History of partial nephrectomy Status post left cataract extraction Status post righ
[2022-10-11 10:58] LABS: Glucose Point of Care 91 mg/dl (65-105)
[2022-10-11] MEDS: SODIUM CHLORIDE 0.9% IV 500 ML 10 ML IV CONT (11:00)
--- NOTE | 2022-10-11 11:00 | PM.HPGS ---
History of Present Illness History of Present Illness Consent: Risks, benefits, and alternatives have been discussed and questions answered. Patient agrees to proceed with procedure. Chief complaint: nausea, vomiting Narrative: Kendall Carl is a 67 year old male Referred because of persistent nausea vomiting. He reports nausea and vomiting since undergoing? transsphenoidal resection for pituitary adenoma on 11/[address] Delvalle and Dr. Hunter ENT. ? He relates the nausea and vomiting to the clear postnasal drainage that began after his procedure. PER patient he is followed up with his ENT and was told nothing could be done for his drainage.?States his symptoms are worse at nighttime and in the morning. At times he can take just a few bites and will instantly will throw up. most of the time his symptoms began around 7:00 p.m. with a feeling of phlegm in his throat. It feels as though it would be difficult for him to swallow if he were to eating. He did however does not have any difficulty eating. 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 Adult hypothyroidism Anemia Anxiety Chronic diastolic (congestive) heart failure Chronic GERD Chronic kidney disease, stage 4 (severe) COVID-19 Diabetes Dysphagia History of kidney cancer Hy kid NOS w cr kid I-IV Hypercholesterolemia Hypertension Increased prostate specific antigen (PSA) velocity Left kidney mass Neoplasm of kidney SHABNAM (obstructive sleep apnea) Pituitary tumor Rhinitis Urinary tract infection Viral URI Surgical History Surgical History Adenoma of pituitary History of cholecystectomy History of partial nephrectomy Status post left cataract extraction Status post right knee replacement Status post total right knee replacement Stented coronary artery Family History Family History Mother Hypertension Cerebrovascular accident Father Family history of malignant neoplasm Carcinoma of colon Social History Social History Social History: Patient lives at home with his Harriet who will be his surrogate. Patient a nonsmoker and drinks very rarely they deny having any pets and patient is Alev[employer]. Patient wishes to be a full code at this time. Smoking status: Never smoker Second hand tobacco smoke exposure: No Alcohol intake: current Alcohol use details: rare, holidays Substance use: never Substance use type: does not use Living arrangements: with family Occupation/Education: retired Additional occupation/education comments: [employer] Gender identity (if verbalized by the patient): Male Sexual Orientation (if Verbalized by the Patient): Straight or Heterosexual Spiritual care concerns: No Agree to blood products: Yes Meds Home Medications and Allergies Home Medications Medication Instructions Recorded Confirmed Type blood-glucose meter (AnulexTouch #1 ea 12/23/18 09/24/22 Rx Ultra2 Meter) lancets 30 gauge (AnulexTouch Delica #100 ea 12/23/18 09/24/22 Rx Lancets) aspirin 81 mg tablet,delayed 81 mg PO DAILY 02/01/19 10/01/22 History release (Sami Low Dose Aspirin) vit C 250 mg-vit E 200 unit-zinc 1 tablet PO BID 02/01/19 10/01/22 History 12.5 mg-copper 1 nr-wms-nqdvwm tablet (ICaps AREDS2 (copper citrate)) blood sugar diagnostic (AnulexTouch 05/14/19 09/24/22 History Ultra Blue Test Strip) carvedilol 25 mg tablet (Coreg) 25 mg PO BID 09/06/19 10/11/22 History pen needle, diabetic 32 gauge x #200 ea 09/06/19 09/24/22 Rx 1/4 (BD Ultra-Fine Micro Pen Needle) sevelamer carbonate 800 mg tablet 800 mg PO AC 04/29/21
[2022-10-11 11:01] VITALS: BP 140/70; PULSE 65; RESP 20; TEMP 36.3; O2SAT 98
[2022-10-11 11:35] VITALS: BP 122/54; PULSE 62; RESP 18; O2SAT 97
[2022-10-11 11:45] VITALS: BP 136/56; PULSE 61; RESP 16; O2SAT 98
[2022-10-11 11:55] VITALS: BP 135/61; PULSE 60; RESP 22; O2SAT 99
== END 2022-10-11 12:05 | disposition home or self-care (01) ==
PROVIDERS: PCP Family Medicine; Visit Provider Internal Medicine Gastroenterology
PROC: 0DJ08ZZ Inspection of Upper Intestinal Tract, Via Natural or Artificial Opening Endoscopic (ICD-10-PCS; CPT 43235; principal; 2022-10-11 11:45)
DX: K31.7 Polyp of stomach and duodenum (principal); K31.84 Gastroparesis; K31.89 Other diseases of stomach and duodenum; T18.2XXA Foreign body in stomach, initial encounter; K21.9 Gastro-esophageal reflux disease without esophagitis; E11.9 Type 2 diabetes mellitus without complications; I12.9 Hypertensive chronic kidney disease with stage 1 through stage 4 chronic kidney disease, or unspecified chronic kidney disease; N18.4 Chronic kidney disease, stage 4 (severe); I50.32 Chronic diastolic (congestive) heart failure; E03.9 Hypothyroidism, unspecified; D64.9 Anemia, unspecified; F41.9 Anxiety disorder, unspecified; R13.10 Dysphagia, unspecified; E78.00 Pure hypercholesterolemia, unspecified; Z85.528 Personal history of other malignant neoplasm of kidney; G47.33 Obstructive sleep apnea (adult) (pediatric); E66.9 Obesity, unspecified; Z68.34 Body mass index [BMI] 34.0-34.9, adult; Z79.82 Long term (current) use of aspirin; Z79.4 Long term (current) use of insulin
CPT/HCPCS: 43251; 43239; 82948; 88305; J2704; J7040

== ENCOUNTER 2022-11-02 10:53 | Emergency (ER) | payer MEDICARE, SELFPAY ==
[2022-11-02] VITALS (13 sets, daily range): BP systolic 114–159; BP diastolic 67–89; PULSE 51–61; RESP 12–22; TEMP 36.3; O2SAT 95–100
--- NOTE | ~2022-11-02 | XR_ITS ---
XR chest 2V DATE: 11/02/2022 13:28 INDICATION: Congestion TECHNIQUE: AP and lateral views COMPARISON: 02/12/2022 2 view chest FINDINGS: Normal heart size. Aortic arch calcification. Minimal atelectasis is suggested at the lung bases. No pulmonary infiltrate or consolidation, pleural effusion or pulmonary vascular congestion or pneumothorax is noted otherwise. Diffuse idiopathic skeletal hyperostosis of the thoracic and lumbar spine IMPRESSION: Minimal atelectasis is suggested at the lung bases; otherwise no active cardiac pulmonary disease Aortic atherosclerosis Diffuse idiopathic skeletal hyperostosis of the thoracic and lumbar spine Reviewed, dictated and finalized at location A. IMPRESSION: Minimal atelectasis is suggested at the lung bases; otherwise no ac tive cardiac pulmonary disease Aortic atherosclerosis Diffuse idiopathic skeletal hyperostosis of the thoracic and lumbar spine
--- NOTE | 2022-11-02 11:06 | ECG_ITS ---
Measurements Intervals [place] Rate: 54 P: 86 MO: 156 QRS: -42 QRSD: 103 T: 36 QT: 492 QTc: 470 Interpretive Statements SINUS BRADYCARDIA LEFT AXIS DEVIATION CANNOT RULE OUT SEPTAL INFARCT, AGE INDETERMINATE BASELINE ARTIFACT- I, III, AVL ABNORMAL ECG COMPARED TO ECG 10/12/2021 10:24:45 NO SIGNIFICANT CHANGES Electronically Signed On 11-02-2022 16:56:34 CDT by Dilan Preciado D.O.
[2022-11-02 11:30] LABS: Basophils Percent Auto 0.1 % (0.2-1.2); Eosinophils Percent Auto 0.1 % (0-4.4); Hematocrit 26.8 % (42.0-52.0); Hemoglobin 8.8 g/dL (14.0-18.0); Immature Granulocyte Absolute 0.36 K/mm3 (0.00-0.031); Immature Granulocyte Percent A 4.9 % (0-0.5); Lymphocytes Percent Auto 12.2 % (18.3-44.2); Mean Corpuscular HGB Conc 32.8 g/dl (32-36); Mean Corpuscular Hemoglobin 32.5 pg (26-34); Mean Corpuscular Volume 98.9 fl (80-100); Mean Platelet Volume 10.9 fl (7.4-10.4); Monocytes Absolute Auto 0.8 K/mm3 (0.1-0.6); Monocytes Percent Auto 10.6 % (2.6-8.5); Neutrophils Absolute Auto 5.3 K/mm3 (1.3-6.7); Neutrophils Percent Auto 72.1 % (45.5-73.1); Platelet Count Result 154 k/mm3 (150-375); Red Blood Count 2.71 M/mm3 (4.6-6.20); Red Cell Distribution Width 15.3 % (11.5-14.5); White Blood Count 7.4 K/mm3 (4.5-10.0)
[2022-11-02 11:45] LABS: Alanine Aminotransferase 21 U/L (6-50); Albumin Level 3.7 g/dL (3.5-5.1); Alkaline Phosphatase 51 U/L (38-126); Anion Gap 11 mmol/L (8-16); Aspartate Amino Transferase 29 U/L (17-59); Bilirubin,Total 0.6 mg/dL (0.2-1.3); Blood Urea Nitrogen 36 mg/dL (9-20); Calcium 7.9 mg/dL (8.4-10.2); Carbon Dioxide 28 mmol/L (22-30); Chloride 100 mmol/L (98-107); Estimated CRCL calculation 10 ml/min; Estimated Glomerular Filt Rate 7; Glucose 146 mg/dL (65-110); Potassium 3.8 mmol/L (3.4-5.0); Sodium 139 mmol/L (137-145)
--- NOTE | 2022-11-02 12:33 | ED.DIZZY ---
HPI - Dizziness General Chief Complaint: Dizziness Stated Complaint: No energy, head pounding, nauseas, dizzy Time Seen by Provider: 11/02/22 12:04 History of Present Illness HPI Narrative: Patient is a 67-year-old male with a history of ESRD on peritoneal dialysis, hypertension, diabetes, hyperlipidemia presenting with lightheadedness. Patient states that since he got up this morning he has been feeling lightheaded whenever he stands. States that he has been very fatigued and generally rundown for many months now. States that he has been feeling nauseated since this morning as well. He denies vomiting, diarrhea, abdominal pain, chest pain, shortness of breath, palpitations, numbness or weakness, vertigo. Related Data Home Medications Medication Instructions Recorded Confirmed aspirin 81 mg tablet,delayed 81 mg PO DAILY 02/01/19 10/01/22 release (Sami Low Dose Aspirin) vit C 250 mg-vit E 200 unit-zinc 1 tablet PO BID 02/01/19 10/01/22 12.5 mg-copper 1 bf-qza-widnco tablet (ICaps AREDS2 (copper citrate)) blood sugar diagnostic (OneTouch 05/14/19 09/24/22 Ultra Blue Test Strip) carvedilol 25 mg tablet (Coreg) 25 mg PO BID 09/06/19 10/11/22 sevelamer carbonate 800 mg tablet 800 mg PO AC 04/29/21 10/01/22 insulin glargine 100 unit/mL (3 50 unit subcut BID 10/12/21 10/01/22 mL) subcutaneous pen (Basaglar KwikPen U-100 Insulin) lisinopril 20 mg tablet 20 mg PO HS 08/12/22 10/01/22 potassium chloride 10 mEq 10 meq PO DAILY 08/12/22 10/01/22 capsule,extended release atorvastatin 80 mg tablet 80 mg PO DAILY 10/01/22 10/01/22 cholecalciferol (vitamin D3) 125 125 mcg PO DAILY 10/01/22 10/01/22 mcg (5,000 unit) tablet (Vitamin D3) fenofibrate nanocrystallized 145 145 mg PO DAILY 10/01/22 10/01/22 mg tablet folic acid 0.8 mg-vit B comp with 1 tablet PO DAILY 10/01/22 10/11/22 R-xeoq-pjeccwx D3 2,000 unit tablet (Dialyvite 800-Ultra D) furosemide 80 mg tablet 80 mg PO BID 10/01/22 10/11/22 guanfacine 3 mg tablet,extended 3 mg PO HS 10/01/22 10/01/22 release 24 hr insulin aspart U-100 100 unit/mL subcut 10/01/22 (3 mL) subcutaneous pen (Novolog FlexPen U-100 Insulin aspart) lorazepam 0.5 mg tablet (Ativan) 0.5 mg PO HS PRN Anxiety 10/01/22 10/01/22 tamsulosin 0.4 mg capsule 0.4 mg PO HS 10/01/22 10/01/22 tirzepatide 2.5 mg/0.5 mL 2.5 mg subcut WEEKLY 10/01/22 10/01/22 subcutaneous pen injector (Mounjaro) Allergies Allergy/AdvReac Type Severity Reaction Status Date / Time No Known Allergies Allergy Unknown Verified 11/02/22 10:54 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 Adult hypothyroidism Anemia Anxiety Chronic diastolic (congestive) heart failure Chronic GERD Chronic kidney disease, stage 4 (severe) COVID-19 Diabetes Dysphagia History of kidney cancer Hy kid NOS w cr kid I-IV Hypercholesterolemia Hypertension Increased prostate specific antigen (PSA) velocity Left kidney mass Neoplasm of kidney SHABNAM (obstructive sleep apnea) Pituitary tumor Rhinitis Urinary tract infection Viral URI Surgical History Surgical History Adenoma of pituitary History of cholecystectomy History of partial nephrectomy Status post left cataract extraction Status post right knee replacement Status post total right knee replacement Stented coronary artery Family History Family History Mother Hypertension Cerebrovascular accident Father Family history of malignant neoplasm Carcinoma of colon Social History Social History Social History: Patient lives at home with his Rochert
[2022-11-02] MEDS: SODIUM CHLORIDE 0.9% IV 500 ML 999 ML IV CONT (12:58)
--- NOTE | 2022-11-02 13:03 | PC.NURSE ---
Pt unable to give urine sample at this time. Fluids started at this time
[2022-11-02 13:22] LABS: Lipase 170 U/L (23-300)
[2022-11-02 13:59] LABS: Appearance Urine Clear (Clear); Bacteria Urine None Seen /hpf; Bilirubin Urine Negative (Negative); Blood Urine Negative (Negative); Color Urine Yellow (Yellow); Glucose Urine UA Trace mg/dL (Negative); Ketones Urine Negative (Negative); Leukocyte Esterase Ur Negative LEU/UL (Negative); Nitrate Urine Negative (Negative); Non Pathogenic Casts 0-2; Protein Urine 3+ mg/dL (Negative); RBC Urine 0-2 /hpf (0-2); Specific Grav Ur 1.014 (1.001-1.035); Squamous Epithelial Cell Urine None seen /hpf (Few); Urobilinogen Urine 0.2 mg/dL (<2.0); WBC Urine 0-5 /hpf; pH Urine 7.5 (5.0-9.0)
[2022-11-02 14:07] LABS: Add Urine Microscopic? YES
[2022-11-02 14:10] LABS: Influenza A QL RT-PCR Negative (Negative); Influenza B QL RT-PCR Negative (Negative); RSV RNA, RT-PCR Negative (Negative); SARS-CoV-2 RNA PCR Negative (Negative)
== END 2022-11-02 15:55 | disposition home or self-care (01) ==
PROVIDERS: Emergency Medicine; Emergency Provider Emergency Medicine; PCP Family Medicine
DX: I95.1 Orthostatic hypotension (principal); I13.0 Hypertensive heart and chronic kidney disease with heart failure and stage 1 through stage 4 chronic kidney disease, or unspecified chronic kidney disease; E11.22 Type 2 diabetes mellitus with diabetic chronic kidney disease; N18.4 Chronic kidney disease, stage 4 (severe); I50.30 Unspecified diastolic (congestive) heart failure; Z99.2 Dependence on renal dialysis; Z79.4 Long term (current) use of insulin; E03.9 Hypothyroidism, unspecified; D64.9 Anemia, unspecified; F41.9 Anxiety disorder, unspecified; K21.9 Gastro-esophageal reflux disease without esophagitis; G47.30 Sleep apnea, unspecified
CPT/HCPCS: 36415; 71046; 80053; 81001; 83690; 85025; 87637; 93005; 96360; 99284; J7040

== ENCOUNTER 2022-11-29 12:43 | Emergency (ER) | payer OTHER, MEDICARE, SELFPAY ==
[2022-11-29] VITALS (13 sets, daily range): BP systolic 143–197; BP diastolic 56–96; PULSE 62–90; RESP 13–18; TEMP 36.7; O2SAT 98–100
--- NOTE | ~2022-11-29 | XR_ITS ---
XR chest 2V 11/29/2022 15:19 Indication: Chest soreness Procedure: 2 view chest Comparison: Comparison to multiple prior studies sequentially, with oldest reviewed study dated 09/2021. Findings: Heart size normal. There is bibasilar atelectasis. No focal pneumonia, edema, pleural effus ion or pneumothorax. Impression: 1: Bibasilar atelectasis. Reviewed, dictated and finalized at location A. Impression: 1: Bibasilar atelectasis.
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
--- NOTE | 2022-11-29 14:57 | ECG_ITS ---
Measurements Intervals [place] Rate: 53 P: 3 MS: 151 QRS: -44 QRSD: 98 T: 53 QT: 485 QTc: 459 Interpretive Statements SINUS BRADYCARDIA LEFT AXIS DEVIATION NONSPECIFIC T-WAVE ABNORMALITY PROLONGED QT INTERVAL Electronically Signed On 11-30-2022 17:07:47 CDT by Kun Carvajal M.D.
--- NOTE | 2022-11-29 15:56 | PC.NURSE ---
Tech attempted blood draw, pt states he is a hard stick. Pt states you only get one stick Tech unable to obtain blood
[2022-11-29 17:29] LABS: Basophils Percent Auto 0.1 % (0.2-1.2); Hematocrit 29.7 % (42.0-52.0); Hemoglobin 9.6 g/dL (14.0-18.0); Immature Granulocyte Absolute 0.41 K/mm3 (0.00-0.031); Immature Granulocyte Percent A 2.9 % (0-0.5); Lymphocytes Percent Auto 7.1 % (18.3-44.2); Mean Corpuscular HGB Conc 32.3 g/dl (32-36); Mean Corpuscular Hemoglobin 32.8 pg (26-34); Mean Corpuscular Volume 101.4 fl (80-100); Mean Platelet Volume 11.2 fl (7.4-10.4); Monocytes Absolute Auto 1.3 K/mm3 (0.1-0.6); Neutrophils Absolute Auto 11.4 K/mm3 (1.3-6.7); Neutrophils Percent Auto 80.9 % (45.5-73.1); Platelet Count Result 173 k/mm3 (150-375); Red Blood Count 2.93 M/mm3 (4.6-6.20); Red Cell Distribution Width 15.5 % (11.5-14.5); White Blood Count 14.1 K/mm3 (4.5-10.0)
[2022-11-29 17:40] LABS: Partial Thromboplastin Time 22.6 SECONDS (22.3-36.8); Prothrombin Time 13.7 Seconds (11.1-14.7)
[2022-11-29 17:41] LABS: Alanine Aminotransferase 26 U/L (6-50); Albumin Level 4.5 g/dL (3.5-5.1); Alkaline Phosphatase 51 U/L (38-126); Anion Gap 16 mmol/L (8-16); Aspartate Amino Transferase 44 U/L (17-59); Bilirubin,Total 0.7 mg/dL (0.2-1.3); Blood Urea Nitrogen 37 mg/dL (9-20); Calcium 8.8 mg/dL (8.4-10.2); Carbon Dioxide 27 mmol/L (22-30); Chloride 97 mmol/L (98-107); Estimated Glomerular Filt Rate 6; Glucose 149 mg/dL (65-110); Lipase 177 U/L (23-300); Potassium 4.4 mmol/L (3.4-5.0); Sodium 140 mmol/L (137-145)
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
[2022-11-29 18:02] LABS: Troponin I 0.047 ng/mL (0.000-0.034)
[2022-11-29] MEDS: ONDANSETRON INJ 4 MG/2 ML VIAL IV PUSH (18:10)
[2022-11-29] MEDS: MORPHINE SULFATE (*CRX) 4 MG/ML INJ IV PUSH ×2 (18:10→18:56)
[2022-11-29 19:42] LABS: Troponin I 0.046 ng/mL (0.000-0.034)
[2022-11-29] MEDS: HYDROmorphone HCL INJ (*CRX) 1 MG/ML SYR IV PUSH (19:51)
[2022-11-29] MEDS: HYDROmorphone HCL INJ (*CRX) 1 MG/ML SYR 0.5 MG IV PUSH (20:59)
--- NOTE | 2022-11-29 21:11 | PC.NURSE ---
spoke to Arian @[facility] at [facility] for report.
== END 2022-11-29 21:05 | disposition short-term general hospital (02) ==
PROVIDERS: Emergency Medicine; Emergency Provider Physician Assistant; PCP Family Medicine
DX: S22.20XA Unspecified fracture of sternum, initial encounter for closed fracture (principal); S22.081A Stable burst fracture of T11-T12 vertebra, initial encounter for closed fracture; E11.22 Type 2 diabetes mellitus with diabetic chronic kidney disease; I13.2 Hypertensive heart and chronic kidney disease with heart failure and with stage 5 chronic kidney disease, or end stage renal disease; I50.32 Chronic diastolic (congestive) heart failure; N18.6 End stage renal disease; Z99.2 Dependence on renal dialysis; R79.89 Other specified abnormal findings of blood chemistry; E78.00 Pure hypercholesterolemia, unspecified; E03.9 Hypothyroidism, unspecified; D64.9 Anemia, unspecified; G47.33 Obstructive sleep apnea (adult) (pediatric); K21.9 Gastro-esophageal reflux disease without esophagitis; Z85.528 Personal history of other malignant neoplasm of kidney; Z87.440 Personal history of urinary (tract) infections; Z90.49 Acquired absence of other specified parts of digestive tract; Z90.5 Acquired absence of kidney; Z98.42 Cataract extraction status, left eye; Z96.651 Presence of right artificial knee joint; Z95.5 Presence of coronary angioplasty implant and graft; Z79.82 Long term (current) use of aspirin; Z79.4 Long term (current) use of insulin; Z79.85 Long-term (current) use of injectable non-insulin antidiabetic drugs; V49.50XA Passenger injured in collision with unspecified motor vehicles in traffic accident, initial encounter; R00.1 Bradycardia, unspecified; R94.31 Abnormal electrocardiogram [ECG] [EKG]; R18.8 Other ascites; R91.1 Solitary pulmonary nodule; M47.812 Spondylosis without myelopathy or radiculopathy, cervical region; M47.816 Spondylosis without myelopathy or radiculopathy, lumbar region; M47.814 Spondylosis without myelopathy or radiculopathy, thoracic region
CPT/HCPCS: 36415; 71046; 71260; 72125; 72128; 72131; 80053; 83690; 84484; 85025; 85610; 85730; 93005; 96374; 96375; 96376; 99285; J1170; J2270; J2405; L0140; Q9967

== ENCOUNTER 2023-01-29 11:23 | Outpatient (CLI) | payer MEDICARE, SELFPAY ==
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
--- NOTE | ~2023-01-29 | XR_ITS ---
EXAMINATION: XR sternum min 2V INDICATION: Unspecified fracture of the sternum TECHNIQUE: Two views of the sternum are obtained. COMPARISON: 11/29/2022 FINDINGS: There has been interval internal fixation of the sternum. The previously described sternal fracture is in near-anatomic alignment. Some calcified callus has developed at the fracture site. No additional fracture is identified. IMPRESSION: 1. Healing sternal fracture status post internal fixation. Reviewed, dictated and finalized at location B. 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
== END 2023-01-29 11:24 | disposition home or self-care (01) ==
PROVIDERS: PCP Family Medicine; Visit Provider Physician Assistant
DX: S22.009D Unspecified fracture of unspecified thoracic vertebra, subsequent encounter for fracture with routine healing (principal); S22.20XD Unspecified fracture of sternum, subsequent encounter for fracture with routine healing
CPT/HCPCS: 71046; 71110; 71120

== ENCOUNTER 2023-01-31 20:25 | Emergency (ER) | payer MEDICARE, SELFPAY ==
--- NOTE | ~2023-01-31 | CT_ITS ---
EXAMINATION: CT abdomen pelvis wo con DATE: 01/31/2023 21:09 INDICATION: Abdominal pain TECHNIQUE: Computed tomography (CT) of the abdomen and pelvis was performed without intravenous contr ast. Automated exposure control and iterative reconstruction technique were employed. The dose-length product was 1464.44 mGy-cm. COMPARISON: 04/29/2021 FINDINGS: Unchanged 6 mm left lower lobe nodule consistent with old granulomatous disease. Old healed anterior right fifth rib fracture. Heart size is normal. Persistent small pericardial effusion. Atheroscleroti c coronary artery calcifications. Median sternotomy wires. Left gynecomastia. Cholecystectomy clips t he gallbladder fossa. Peritoneal dialysis catheter in the pelvis with small amount of ascites scatter ed throughout the abdomen and pelvis. Liver, spleen, bilateral adrenal glands are normal. Postoperati ve changes at the upper pole the right kidney consistent with prior partial nephrectomy. There are mu ltiple bilateral simple and hyperdense complex proteinaceous/hemorrhagic cysts in both kidneys. There are a few additional indeterminate bilateral renal lesions which demonstrate 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 soft tissu e density, the largest unchanged on the right measuring 3.0 cm and increased from 4.2 cm 4.4 cm on th e left. There is also some posterior layering likely milk of calcium in a 4.2 cm exophytic cyst at th e lower pole of the left kidney. Normal appendix. No bowel obstruction. There is wall thickening nehemiah g the sigmoid colon which could be seen with colitis. Diffuse mild wall thickening of the bladder lik josse related to decompressed state and potentially also sequela of chronic outlet obstruction from the moderately enlarged prostate. Peyronie's disease. Mild lumbar and moderate thoracic spondylosis with bridging osteophytes at multiple levels consistent with diffuse idiopathic skeletal hyperostosis (DI SH). IMPRESSION: 1. Wall thickening along the sigmoid colon which could be seen with colitis. 2. Multiple bilateral renal lesions which include fluid attenuation simple cysts, high attenuation pr oteinaceous/hemorrhagic cysts and 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 density lesions most likely additional cysts although solid neoplasm cannot be excluded. Recommend further evaluation with pre and postcontrast CT or MRI. 3. Chronic small pericardial effusion. 4. Peritoneal dialysis catheter with small amount of ascites throughout the abdomen and pelvis. 4. Prostatomegaly and peroneus disease. Reviewed, dictated and finalized at location A. K BONER IMPRESSION: 1. Wall thickening along the sigmoid colon which could be seen with colitis. 2. Multiple bilateral renal lesions which include fluid attenuation simple cyst s, high attenuation proteinaceous/hemorrhagic cysts and 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 density le sions most likely additional cysts although solid neoplasm cannot be excluded. Recommend further evaluation with pre and postcontrast CT or MRI. 3. Chronic small pericardial effusion. 4. Peritoneal dialysis catheter with small amount of ascites throughout the abd omen and pelvis. 4. Prostatomegaly and peroneus disease.
[2023-01-31 20:26] VITALS: BP 157/72; PULSE 69; RESP 20; TEMP 36.6; O2SAT 99
--- NOTE | 2023-01-31 20:58 | ED.GENADULT ---
HPI - General Adult General Chief complaint: Abdominal Pain Stated complaint: constipation Time Seen by Provider: 01/31/23 20:37 History of Present Illness HPI narrative: patient is a 68-year-old gentleman who presents to emergency department with chief complaint of constipation. The patient reports that he has been having discomfort in his lower abdomen the patient stated that he took a suppository and a stool softener did have a bowel movement last night patient states that he has a peritoneal dialysis patient and reports that his dialysis fluid has been cleared. Patient denies fever Related Data Home Medications Medication Instructions Recorded Confirmed aspirin 81 mg tablet,delayed 81 mg PO DAILY 02/01/19 01/07/23 release (Sami Low Dose Aspirin) vit C 250 mg-vit E 200 unit-zinc 1 tablet PO BID 02/01/19 01/07/23 12.5 mg-copper 1 xk-mdn-qkiwic tablet (ICaps AREDS2 (copper citrate)) blood sugar diagnostic (OneTouch 05/14/19 01/07/23 Ultra Blue Test Strip) carvedilol 25 mg tablet (Coreg) 25 mg PO BID 09/06/19 01/07/23 sevelamer carbonate 800 mg tablet 800 mg PO AC 04/29/21 01/07/23 insulin glargine 100 unit/mL (3 50 unit subcut BID 10/12/21 01/07/23 mL) subcutaneous pen (Basaglar KwikPen U-100 Insulin) lisinopril 20 mg tablet 20 mg PO HS 08/12/22 01/07/23 potassium chloride 10 mEq 10 meq PO DAILY 08/12/22 01/07/23 capsule,extended release atorvastatin 80 mg tablet 80 mg PO DAILY 10/01/22 01/07/23 cholecalciferol (vitamin D3) 125 125 mcg PO DAILY 10/01/22 01/07/23 mcg (5,000 unit) tablet (Vitamin D3) fenofibrate nanocrystallized 145 145 mg PO DAILY 10/01/22 01/07/23 mg tablet folic acid 0.8 mg-vit B comp with 1 tablet PO DAILY 10/01/22 01/07/23 H-cfuq-yagflbh D3 2,000 unit tablet (Dialyvite 800-Ultra D) furosemide 80 mg tablet 80 mg PO BID 10/01/22 01/07/23 guanfacine 3 mg tablet,extended 3 mg PO HS 10/01/22 01/07/23 release 24 hr insulin aspart U-100 100 unit/mL subcut 10/01/22 01/07/23 (3 mL) subcutaneous pen (Novolog FlexPen U-100 Insulin aspart) tamsulosin 0.4 mg capsule 0.4 mg PO HS 10/01/22 01/07/23 tirzepatide 2.5 mg/0.5 mL 2.5 mg subcut WEEKLY 10/01/22 01/07/23 subcutaneous pen injector (Vickunjaro) gabapentin 100 mg capsule 100 mg PO QHS 01/07/23 01/07/23 tramadol 50 mg tablet 50 mg PO Q6H PRN 01/07/23 01/07/23 Allergies Allergy/AdvReac Type Severity Reaction Status Date / Time oxycodone Allergy Hallucinati Verified 01/31/23 20:32 ng Review of Systems Review of Systems: A 10 system review of systems was completed on the patient and is negative except for what is stated in the HPI. Nursing and ancillary documentation was reviewed. 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 Adult hypothyroidism Anemia Anxiety Chronic diastolic (congestive) heart failure Chronic GERD Chronic kidney disease, stage 4 (severe) COVID-19 Diabetes Dysphagia History of kidney cancer Hy kid NOS w cr kid I-IV Hypercholesterolemia Hypertension Increased prostate specific antigen (PSA) velocity Left kidney mass Neoplasm of kidney SHABNAM (obstructive sleep apnea) Pituitary tumor Rhinitis Urinary tract infection Viral URI Surgical History Surgical History Adenoma of pituitary History of cholecystectomy History of partial nephrectomy Status post left cataract extraction Status post right knee replacement Status post total right knee replacement Stented coronary artery Family History Family History Mother Hypertension Cerebrovascular accident Father Family history of malignant neoplasm Carcinoma of colon Social History Social History Social H
[2023-01-31 21:00] VITALS: BP 180/81; PULSE 66; RESP 15; TEMP 36.6; O2SAT 99
[2023-01-31 21:06] LABS: Basophils Percent Auto 0.1 % (0.2-1.2); Eosinophils Percent Auto 0.1 % (0-4.4); Hematocrit 26.7 % (42.0-52.0); Hemoglobin 8.5 g/dL (14.0-18.0); Immature Granulocyte Absolute 0.28 K/mm3 (0.00-0.031); Immature Granulocyte Percent A 3.9 % (0-0.5); Lymphocytes Absolute Auto 1.19 K/mm3 (0.9-3.2); Lymphocytes Percent Auto 16.7 % (18.3-44.2); Mean Corpuscular HGB Conc 31.8 g/dl (32-36); Mean Corpuscular Volume 100.4 fl (80-100); Mean Platelet Volume 10.9 fl (7.4-10.4); Monocytes Absolute Auto 0.9 K/mm3 (0.1-0.6); Monocytes Percent Auto 12.6 % (2.6-8.5); Neutrophils Absolute Auto 4.7 K/mm3 (1.3-6.7); Neutrophils Percent Auto 66.6 % (45.5-73.1); Platelet Count Result 169 k/mm3 (150-375); Red Blood Count 2.66 M/mm3 (4.6-6.20); Red Cell Distribution Width 14.4 % (11.5-14.5); White Blood Count 7.1 K/mm3 (4.5-10.0)
[2023-01-31 21:10] LABS: Appearance Urine Clear (Clear); Bacteria Urine None Seen /hpf; Bilirubin Urine Negative (Negative); Blood Urine 1+ (Negative); Color Urine Yellow (Yellow); Glucose Urine UA 1+ mg/dL (Negative); Ketones Urine Negative (Negative); Leukocyte Esterase Ur Negative LEU/UL (Negative); Nitrate Urine Negative (Negative); Non Pathogenic Casts 0-2; Protein Urine 3+ mg/dL (Negative); Specific Grav Ur 1.011 (1.001-1.035); Squamous Epithelial Cell Urine None seen /hpf (Few); Urobilinogen Urine 0.2 mg/dL (<2.0); WBC Urine 0-5 /hpf; pH Urine 7.5 (5.0-9.0)
[2023-01-31 21:17] LABS: Add Urine Microscopic? YES
[2023-01-31 21:23] LABS: Alanine Aminotransferase 23 U/L (6-50); Alkaline Phosphatase 53 U/L (38-126); Anion Gap 15 mmol/L (8-16); Aspartate Amino Transferase 45 U/L (17-59); Bilirubin,Total 0.7 mg/dL (0.2-1.3); Blood Urea Nitrogen 39 mg/dL (9-20); Carbon Dioxide 22 mmol/L (22-30); Chloride 99 mmol/L (98-107); Estimated CRCL calculation 10 ml/min; Estimated Glomerular Filt Rate 7; Glucose 172 mg/dL (65-110); Lipase 227 U/L (23-300); Potassium 4.8 mmol/L (3.4-5.0); Sodium 136 mmol/L (137-145)
[2023-01-31 22:05] VITALS: BP 154/82; PULSE 65; RESP 12; O2SAT 100
== END 2023-01-31 22:37 | disposition home or self-care (01) ==
PROVIDERS: Emergency Provider Emergency Medicine; PCP Family Medicine
DX: R10.9 Unspecified abdominal pain (principal); I13.0 Hypertensive heart and chronic kidney disease with heart failure and stage 1 through stage 4 chronic kidney disease, or unspecified chronic kidney disease; I50.30 Unspecified diastolic (congestive) heart failure; N18.4 Chronic kidney disease, stage 4 (severe); E11.22 Type 2 diabetes mellitus with diabetic chronic kidney disease; E03.9 Hypothyroidism, unspecified; Z99.2 Dependence on renal dialysis
CPT/HCPCS: 36415; 74176; 80053; 81001; 83690; 85025; 99284

== ENCOUNTER 2023-02-12 18:24 | Emergency (ER) | payer MEDICARE, SELFPAY ==
--- NOTE | ~2023-02-12 | CT_ITS ---
EXAMINATION: CT abdomen pelvis wo con DATE: 02/12/2023 21:12 INDICATION: abdominal pain, PD dialysis patient TECHNIQUE: Computed tomography (CT) of the abdomen and pelvis was performed without intravenous contr ast. Automated exposure control and iterative reconstruction technique were employed. The dose-length product was 1351.17 mGy-cm. COMPARISON: 09/02/2020. FINDINGS: Lower thorax: Stable left lower lobe granuloma. Coronary artery calcification. Mitral annulus calcifi cation. Gynecomastia. Liver: Mild nodularity of the liver border. Biliary/Gallbladder: Gallbladder is absent. No bile duct dilation. Pancreas: No mass or duct dilation. Spleen: Mildly enlarged. 11 mm irregular hypodensity in the spleen, likely hemangioma. Adrenals:No mass. Kidneys: Right renal partial nephrectomy. Multiple bilateral indeterminate density renal lesions. Mul tiple bilateral simple renal cysts. Multiple bilateral hyperdense lesions likely representing hemorrh agic or proteinaceous cysts. No obstructing calcification or hydronephrosis. GI tract: No small or large bowel dilation. Normal appendix. Mesentery/Peritoneum: No mass or free air. Periportal lymphadenopathy. Moderate volume ascites Retroperitoneum: No mass. Atherosclerotic abdominal aortic and/or arterial calcifications. Pelvis: A peritoneal dialysis catheter terminates in the right upper pelvis. The urinary bladder is m ostly empty, with wall thickening, probably due to outlet obstruction from prostatomegaly. Soft Tissues: Ascitic fluid extends into the right inguinal canal Bones: No acute osseous finding. IMPRESSION: Multiple indeterminate density renal lesions, recommend nonemergent but timely renal MRI or CT withou t and with contrast for further evaluation. Cirrhosis with portal hypertension. Periportal lymphadenopathy. Moderate ascites. Reviewed, dictated and finalized at location K. COMMUNICATIONS LINE MECHANIC IMPRESSION: Multiple indeterminate density renal lesions, recommend nonemergent but timely renal MRI or CT without and with contrast for further evaluation. Cirrhosis with portal hypertension. Periportal lymphadenopathy. Moderate ascite s.
[2023-02-12 18:26] VITALS: BP 172/69; PULSE 59; RESP 20; TEMP 37; O2SAT 100
[2023-02-12 20:21] VITALS: BP 165/85; RESP 14; O2SAT 99
[2023-02-12 20:22] VITALS: PULSE 57; RESP 15; O2SAT 99
[2023-02-12 20:24] VITALS: BP 185/84; PULSE 57; RESP 11; O2SAT 100
--- NOTE | 2023-02-12 20:25 | PC.NURSE ---
Patient states the pain began after a bowel movement around 1730. Patient states the pain located in the left flank is a constant burning feeling that radiates to his back and in between his shoulder blades. Patient rates the pain a 5/10, and states nothing makes is better or worse. Patient is a dialysis patient-does peritoneal dialysis at home nightly. Does not use left arm for anything, is saving in case it's needed for hemodialysis.
[2023-02-12 20:51] LABS: Basophils Percent Auto 0.1 % (0.2-1.2); Hematocrit 30.5 % (42.0-52.0); Hemoglobin 9.7 g/dL (14.0-18.0); Immature Granulocyte Absolute 0.35 K/mm3 (0.00-0.031); Immature Granulocyte Percent A 4.2 % (0-0.5); Lymphocytes Absolute Auto 1.07 K/mm3 (0.9-3.2); Lymphocytes Percent Auto 12.8 % (18.3-44.2); Mean Corpuscular HGB Conc 31.8 g/dl (32-36); Mean Corpuscular Hemoglobin 32.1 pg (26-34); Mean Platelet Volume 10.4 fl (7.4-10.4); Monocytes Percent Auto 11.4 % (2.6-8.5); Neutrophils Percent Auto 71.5 % (45.5-73.1); Platelet Count Result 184 k/mm3 (150-375); Red Blood Count 3.02 M/mm3 (4.6-6.20); Red Cell Distribution Width 14.7 % (11.5-14.5); White Blood Count 8.4 K/mm3 (4.5-10.0)
[2023-02-12 21:05] LABS: Alanine Aminotransferase 19 U/L (6-50); Albumin Level 4.1 g/dL (3.5-5.1); Alkaline Phosphatase 59 U/L (38-126); Anion Gap 15 mmol/L (8-16); Aspartate Amino Transferase 29 U/L (17-59); Bilirubin,Total 0.6 mg/dL (0.2-1.3); Blood Urea Nitrogen 38 mg/dL (9-20); Calcium 8.1 mg/dL (8.4-10.2); Carbon Dioxide 27 mmol/L (22-30); Chloride 97 mmol/L (98-107); Estimated CRCL calculation 9 ml/min; Estimated Glomerular Filt Rate 6; Glucose 90 mg/dL (65-110); Lactic Acid Reflex 1.5 mmol/L (0.7-2.0); Lipase 184 U/L (23-300); Potassium 3.6 mmol/L (3.4-5.0); Sodium 139 mmol/L (137-145)
[2023-02-12 21:08] LABS: Appearance Urine Clear (Clear); Bacteria Urine None Seen /hpf; Bilirubin Urine Negative (Negative); Color Urine Yellow (Yellow); Glucose Urine UA Negative (Negative); Ketones Urine Negative (Negative); Leukocyte Esterase Ur Negative LEU/UL (Negative); Nitrate Urine Negative (Negative); Non Pathogenic Casts 0-2; Protein Urine 3+ mg/dL (Negative); Specific Grav Ur 1.008 (1.001-1.035); Squamous Epithelial Cell Urine None seen /hpf (Few); Urobilinogen Urine 0.2 mg/dL (<2.0); WBC Urine 0-5 /hpf
[2023-02-12 21:14] LABS: Add Urine Microscopic? YES
--- NOTE | 2023-02-12 21:46 | ED.GENADULT ---
HPI - General Adult General Chief complaint: Abdominal Pain Stated complaint: constipation, LUQ pain Time Seen by Provider: 02/12/23 20:21 History of Present Illness HPI narrative: patient is a 68-year-old gentleman who presents emergency department with chief complaint of abdominal discomfort. Patient reports that he has end-stage renal disease on peritoneal dialysis and reports that she has had some problems with constipation patient reports that he took a stool softener and also to a suppository and reports that he subsequently had a large bowel movement and felt better but had discomfort on the left side of his abdomen. The patient denies fever denies vomiting reports that his dialysis fluid has been clear Related Data Home Medications Medication Instructions Recorded Confirmed aspirin 81 mg tablet,delayed 81 mg PO DAILY 02/01/19 01/07/23 release (Sami Low Dose Aspirin) vit C 250 mg-vit E 200 unit-zinc 1 tablet PO BID 02/01/19 01/07/23 12.5 mg-copper 1 tz-dxb-hbswfq tablet (ICaps AREDS2 (copper citrate)) blood sugar diagnostic (OneTouch 05/14/19 01/07/23 Ultra Blue Test Strip) carvedilol 25 mg tablet (Coreg) 25 mg PO BID 09/06/19 01/07/23 sevelamer carbonate 800 mg tablet 800 mg PO AC 04/29/21 01/07/23 insulin glargine 100 unit/mL (3 50 unit subcut BID 10/12/21 01/07/23 mL) subcutaneous pen (Basaglar KwikPen U-100 Insulin) lisinopril 20 mg tablet 20 mg PO HS 08/12/22 01/07/23 potassium chloride 10 mEq 10 meq PO DAILY 08/12/22 01/07/23 capsule,extended release atorvastatin 80 mg tablet 80 mg PO DAILY 10/01/22 01/07/23 cholecalciferol (vitamin D3) 125 125 mcg PO DAILY 10/01/22 01/07/23 mcg (5,000 unit) tablet (Vitamin D3) fenofibrate nanocrystallized 145 145 mg PO DAILY 10/01/22 01/07/23 mg tablet folic acid 0.8 mg-vit B comp with 1 tablet PO DAILY 10/01/22 01/07/23 I-dqye-eifrkwm D3 2,000 unit tablet (Dialyvite 800-Ultra D) furosemide 80 mg tablet 80 mg PO BID 10/01/22 01/07/23 guanfacine 3 mg tablet,extended 3 mg PO HS 10/01/22 01/07/23 release 24 hr insulin aspart U-100 100 unit/mL subcut 10/01/22 01/07/23 (3 mL) subcutaneous pen (Novolog FlexPen U-100 Insulin aspart) tamsulosin 0.4 mg capsule 0.4 mg PO HS 10/01/22 01/07/23 tirzepatide 2.5 mg/0.5 mL 2.5 mg subcut WEEKLY 10/01/22 01/07/23 subcutaneous pen injector (Mounjaro) gabapentin 100 mg capsule 100 mg PO QHS 01/07/23 01/07/23 tramadol 50 mg tablet 50 mg PO Q6H PRN 01/07/23 01/07/23 Allergies Allergy/AdvReac Type Severity Reaction Status Date / Time oxycodone Allergy Hallucinati Verified 01/31/23 20:32 ng Review of Systems Review of Systems: A 10 system review of systems was completed on the patient and is negative except for what is stated in the HPI. Nursing and ancillary documentation was reviewed. 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 Adult hypothyroidism Anemia Anxiety Chronic diastolic (congestive) heart failure Chronic GERD Chronic kidney disease, stage 4 (severe) COVID-19 Diabetes Dysphagia History of kidney cancer Hy kid NOS w cr kid I-IV Hypercholesterolemia Hypertension Increased prostate specific antigen (PSA) velocity Left kidney mass Neoplasm of kidney SHABNAM (obstructive sleep apnea) Pituitary tumor Rhinitis Urinary tract infection Viral URI Surgical History Surgical History Adenoma of pituitary History of cholecystectomy History of partial nephrectomy Status post left cataract extraction Status post right knee replacement Status post total right knee replacement Stented coronary artery Family History Family History Mother Hypertension Cerebrovascular accident Father Family history of malignant neop
[2023-02-12 22:23] VITALS: BP 157/87; PULSE 62; RESP 15; TEMP 36.3; O2SAT 99
== END 2023-02-12 22:24 | disposition home or self-care (01) ==
PROVIDERS: Emergency Provider Emergency Medicine; PCP Family Medicine
DX: R10.32 Left lower quadrant pain (principal); I13.0 Hypertensive heart and chronic kidney disease with heart failure and stage 1 through stage 4 chronic kidney disease, or unspecified chronic kidney disease; I50.32 Chronic diastolic (congestive) heart failure; E11.22 Type 2 diabetes mellitus with diabetic chronic kidney disease; N18.4 Chronic kidney disease, stage 4 (severe); E78.00 Pure hypercholesterolemia, unspecified; G47.33 Obstructive sleep apnea (adult) (pediatric); E03.9 Hypothyroidism, unspecified; D64.9 Anemia, unspecified; F41.9 Anxiety disorder, unspecified; K21.9 Gastro-esophageal reflux disease without esophagitis; Z85.528 Personal history of other malignant neoplasm of kidney; Z79.85 Long-term (current) use of injectable non-insulin antidiabetic drugs; Z79.4 Long term (current) use of insulin; Z79.82 Long term (current) use of aspirin; Z90.5 Acquired absence of kidney; Z95.5 Presence of coronary angioplasty implant and graft
CPT/HCPCS: 36415; 74176; 80053; 81001; 83605; 83690; 85025; 99284

== ENCOUNTER 2023-02-18 14:35 | Emergency (ER) | payer MEDICARE, SELFPAY ==
[2023-02-18 14:38] VITALS: BP 158/69; PULSE 58; RESP 20; TEMP 36.6; O2SAT 98
--- NOTE | 2023-02-18 14:41 | ECG_ITS ---
Measurements Intervals [place] Rate: 56 P: 102 AR: 157 QRS: -55 QRSD: 98 T: 57 QT: 455 QTc: 442 Interpretive Statements SINUS BRADYCARDIA LEFT ANTERIOR FASCICULAR BLOCK ABNORMAL ECG COMPARED TO ECG 11/29/2022 15:21:29 LEFT ANTERIOR FASCICULAR BLOCK NOW PRESENT Electronically Signed On 02-18-2023 15:06:06 EVAPORATIVE COOLER INSTALLER by Dilan Preciado D.O.
--- NOTE | 2023-02-18 16:11 | PC.NURSE ---
pt up to desk stating he is not feeling better but cannot wait anymore. states is going to contact his pmd. pt left dept.
== END 2023-02-18 19:30 | disposition left against medical advice (07) ==
PROVIDERS: Emergency Provider Emergency Medicine; PCP Family Medicine
DX: R53.1 Weakness (principal)
CPT/HCPCS: 93005; 99199

== ENCOUNTER 2023-02-19 10:48 | Outpatient (CLI) | payer MEDICARE, SELFPAY ==
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
== END 2023-02-19 10:49 | disposition home or self-care (01) ==
PROVIDERS: PCP Family Medicine; Visit Provider Family Medicine
DX: R07.9 Chest pain, unspecified (principal); Z96.698 Presence of other orthopedic joint implants
CPT/HCPCS: 71120

== ENCOUNTER 2023-02-20 10:02 | Emergency (ER) | payer MEDICARE, SELFPAY ==
[2023-02-20 10:06] VITALS: BP 133/74; PULSE 56; RESP 16; TEMP 36.9; O2SAT 100
[2023-02-20 11:17] VITALS: PULSE 50
[2023-02-20 11:40] LABS: Basophils Percent Auto 0.3 % (0.2-1.2); Eosinophils Percent Auto 0.1 % (0-4.4); Hematocrit 32.5 % (42.0-52.0); Hemoglobin 10.5 g/dL (14.0-18.0); Immature Granulocyte Absolute 0.23 K/mm3 (0.00-0.031); Lymphocytes Absolute Auto 1.01 K/mm3 (0.9-3.2); Lymphocytes Percent Auto 13.1 % (18.3-44.2); Mean Corpuscular HGB Conc 32.3 g/dl (32-36); Mean Corpuscular Hemoglobin 32.4 pg (26-34); Mean Corpuscular Volume 100.3 fl (80-100); Mean Platelet Volume 10.7 fl (7.4-10.4); Monocytes Absolute Auto 0.8 K/mm3 (0.1-0.6); Monocytes Percent Auto 10.9 % (2.6-8.5); Neutrophils Absolute Auto 5.6 K/mm3 (1.3-6.7); Neutrophils Percent Auto 72.6 % (45.5-73.1); Platelet Count Result 168 k/mm3 (150-375); Red Blood Count 3.24 M/mm3 (4.6-6.20); Red Cell Distribution Width 16.5 % (11.5-14.5); White Blood Count 7.7 K/mm3 (4.5-10.0)
[2023-02-20 11:54] LABS: Appearance Urine Clear (Clear); Bacteria Urine None Seen /hpf; Bilirubin Urine Negative (Negative); Blood Urine Negative (Negative); Color Urine Yellow (Yellow); Glucose Urine UA Negative (Negative); Ketones Urine Negative (Negative); Leukocyte Esterase Ur Trace LEU/UL (Negative); Nitrate Urine Negative (Negative); Protein Urine 3+ mg/dL (Negative); RBC Urine 0-2 /hpf (0-2); Specific Grav Ur 1.018 (1.001-1.035); Squamous Epithelial Cell Urine None seen /hpf (Few); Urobilinogen Urine 0.2 mg/dL (<2.0); pH Urine 6.5 (5.0-9.0)
[2023-02-20 11:55] LABS: Add Urine Microscopic? YES
[2023-02-20 11:56] LABS: Ethanol < 10 mg/dL (<10)
--- NOTE | 2023-02-20 11:57 | ED.GENADULT ---
HPI - General Adult General Chief complaint: Unspecified Stated complaint: ache all over, cannot sleep x2 day Time Seen by Provider: 02/20/23 10:28 History of Present Illness HPI narrative: patient is a 68-year-old male who presents ER with difficulty sleeping. Worsened over last 2 days. He wears a CPAP at night and that has not been his issue. He can only sleep for about an hour before he wakes up. He has a fear that he is not going to wake back up. Ativan does not help. He discussed this with his PCP yesterday and there is no plan for [facility] to remedy this. He reports that Tylenol p.m. does not help in the neither does melatonin. has no chest pain or chest pressure. No sinus congestion or sore throat or productive cough. patient has some chronic mobility issues and wears a brace. Unsure if he has truly depressed mood. He does have a poor appetite. No SI/HI. Related Data Home Medications Medication Instructions Recorded Confirmed aspirin 81 mg tablet,delayed 81 mg PO DAILY 02/01/19 02/19/23 release (Sami Low Dose Aspirin) vit C 250 mg-vit E 200 unit-zinc 1 tablet PO BID 02/01/19 02/19/23 12.5 mg-copper 1 gz-wsa-kiofhu tablet (ICaps AREDS2 (copper citrate)) blood sugar diagnostic (OneTouch 05/14/19 02/19/23 Ultra Blue Test Strip) carvedilol 25 mg tablet (Coreg) 25 mg PO BID 09/06/19 02/19/23 sevelamer carbonate 800 mg tablet 800 mg PO AC 04/29/21 02/19/23 insulin glargine 100 unit/mL (3 50 unit subcut BID 10/12/21 02/19/23 mL) subcutaneous pen (Basaglar KwikPen U-100 Insulin) lisinopril 20 mg tablet 20 mg PO HS 08/12/22 02/19/23 potassium chloride 10 mEq 10 meq PO DAILY 08/12/22 02/19/23 capsule,extended release atorvastatin 80 mg tablet 80 mg PO DAILY 10/01/22 02/19/23 cholecalciferol (vitamin D3) 125 125 mcg PO DAILY 10/01/22 02/19/23 mcg (5,000 unit) tablet (Vitamin D3) fenofibrate nanocrystallized 145 145 mg PO DAILY 10/01/22 02/19/23 mg tablet folic acid 0.8 mg-vit B comp with 1 tablet PO DAILY 10/01/22 02/19/23 L-sexg-cnhqncm D3 2,000 unit tablet (Dialyvite 800-Ultra D) furosemide 80 mg tablet 80 mg PO BID 10/01/22 02/19/23 guanfacine 3 mg tablet,extended 3 mg PO HS 10/01/22 02/19/23 release 24 hr insulin aspart U-100 100 unit/mL subcut 10/01/22 02/19/23 (3 mL) subcutaneous pen (Novolog FlexPen U-100 Insulin aspart) tamsulosin 0.4 mg capsule 0.4 mg PO HS 10/01/22 02/19/23 gabapentin 100 mg capsule 100 mg PO QHS 01/07/23 02/19/23 Allergies Allergy/AdvReac Type Severity Reaction Status Date / Time oxycodone Allergy Hallucinati Verified 02/20/23 10:03 ng Review of Systems Review of Systems: All systems reviewed & are unremarkable except as noted in HPI and below Constitutional: Constitutional: Reports difficulty sleeping, Reports fatigue, Denies night sweats and Reports poor appetite ENT: Reports system reviewed and no additional complaints, except as documented Cardiovascular: Cardiovascular: Reports no additional cardiovascular complaints Respiratory: Respiratory: Reports no additional respiratory complaints Gastrointestinal: Gastrointestinal: Reports no additional gastrointestinal complaints Musculoskeletal: Musculoskeletal: Reports no additional musculoskeletal complaints 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
[2023-02-20 12:06] LABS: Amphetamine Screen Urine Negative (Negative); Barbiturate Screen Urine Negative (Negative); Benzodiazepines Screen Urine Negative (Negative); Cannabinoid Screen Urine Negative (Negative); Cocaine Screen Urine Negative (Negative); Methadone Screen Urine Negative (Negative); Opiate Screen Urine Negative (Negative); Phencyclidine Screen Urine Negative (Negative)
[2023-02-20 13:55] LABS: Alanine Aminotransferase 18 U/L (6-50); Albumin Level 3.9 g/dL (3.5-5.1); Alkaline Phosphatase 52 U/L (38-126); Anion Gap 15 mmol/L (8-16); Aspartate Amino Transferase 27 U/L (17-59); Bilirubin,Total 0.6 mg/dL (0.2-1.3); Blood Urea Nitrogen 36 mg/dL (9-20); Calcium 9.2 mg/dL (8.4-10.2); Carbon Dioxide 25 mmol/L (22-30); Chloride 97 mmol/L (98-107); Estimated Glomerular Filt Rate 6; Glucose 97 mg/dL (65-110); Potassium 3.7 mmol/L (3.4-5.0); Sodium 137 mmol/L (137-145)
[2023-02-20 15:05] VITALS: BP 132/73; PULSE 46; RESP 13; O2SAT 100
== END 2023-02-20 15:06 | disposition home or self-care (01) ==
PROVIDERS: Emergency Provider Emergency Medicine; PCP Family Medicine
DX: F32.A Depression, unspecified (principal); R82.998 Other abnormal findings in urine; I13.0 Hypertensive heart and chronic kidney disease with heart failure and stage 1 through stage 4 chronic kidney disease, or unspecified chronic kidney disease; E11.22 Type 2 diabetes mellitus with diabetic chronic kidney disease; N18.4 Chronic kidney disease, stage 4 (severe); I50.32 Chronic diastolic (congestive) heart failure; E03.9 Hypothyroidism, unspecified; E78.00 Pure hypercholesterolemia, unspecified; G47.33 Obstructive sleep apnea (adult) (pediatric); D64.9 Anemia, unspecified; K21.9 Gastro-esophageal reflux disease without esophagitis; Z96.651 Presence of right artificial knee joint; Z95.5 Presence of coronary angioplasty implant and graft; Z86.16 Personal history of COVID-19; Z85.528 Personal history of other malignant neoplasm of kidney; Z87.440 Personal history of urinary (tract) infections; Z90.49 Acquired absence of other specified parts of digestive tract; Z90.5 Acquired absence of kidney; Z98.42 Cataract extraction status, left eye; Z79.82 Long term (current) use of aspirin; Z79.4 Long term (current) use of insulin; Z79.899 Other long term (current) drug therapy
CPT/HCPCS: 36415; 80053; 80307; 81001; 84443; 85025; 87086; 99284

== ENCOUNTER 2023-03-01 16:11 | Emergency (ER) | payer MEDICARE, SELFPAY ==
--- NOTE | ~2023-03-01 | CT_ITS ---
CT head without contrast Indication: Headache COMPARISON: 10/13/2021 Technique: Serial scans were obtained through the brain without the administration of contrast. Dose reduction technique was used on this scan by utilizing automated exposure control and iterative recon struction technique. The dose-length product (DLP) was 605.33 mGy-cm. Findings: There is no evidence of intracranial hemorrhage, mass lesion, or acute infarct. The ventri cles and subarachnoid spaces are dilated, consistent with mild atrophy. Low attenuation regions are seen within the periventricular white matter bilaterally, likely representing changes from chronic mi crovascular ischemic disease. There is no evidence of edema, mass effect or midline shift. There is bilateral ethmoid and sphenoid sinus disease. The remaining visualized paranasal sinuses and mastoid air cells are clear. Impression: No intracranial hemorrhage, mass, or acute infarct. Atrophy and chronic white matter changes, as above. Sinus disease, as above. Reviewed, dictated and finalized at [facility]. [facility] [employer] [facility] Impression: No intracranial hemorrhage, mass, or acute infarct. Atrophy and chronic white matter changes, as above. Sinus disease, as above.
[2023-03-01 16:16] VITALS: BP 169/68; PULSE 57; RESP 16; TEMP 36.9; O2SAT 99
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
[2023-03-01 16:32] LABS: Glucose Point of Care 165 mg/dl (65-105)
[2023-03-01] MEDS: LORazepam INJ (*CRX) 2 MG/ML VIAL 1 MG IV PUSH (16:58)
[2023-03-01] MEDS: SODIUM CHLORIDE 0.9% IV 1,000 ML 999 ML IV CONT (16:58)
[2023-03-01 17:06] LABS: Basophils Percent Auto 0.1 % (0.2-1.2); Eosinophils Percent Auto 0.1 % (0-4.4); Hematocrit 31.5 % (42.0-52.0); Hemoglobin 10.2 g/dL (14.0-18.0); Immature Granulocyte Percent A 1.1 % (0-0.5); Lymphocytes Absolute Auto 0.81 K/mm3 (0.9-3.2); Lymphocytes Percent Auto 9.3 % (18.3-44.2); Mean Corpuscular HGB Conc 32.4 g/dl (32-36); Mean Corpuscular Hemoglobin 31.9 pg (26-34); Mean Corpuscular Volume 98.4 fl (80-100); Mean Platelet Volume 10.7 fl (7.4-10.4); Monocytes Absolute Auto 0.9 K/mm3 (0.1-0.6); Monocytes Percent Auto 10.5 % (2.6-8.5); Neutrophils Absolute Auto 6.9 K/mm3 (1.3-6.7); Neutrophils Percent Auto 78.9 % (45.5-73.1); Platelet Count Result 155 k/mm3 (150-375); Red Cell Distribution Width 15.3 % (11.5-14.5); White Blood Count 8.7 K/mm3 (4.5-10.0)
[2023-03-01 17:21] LABS: Alanine Aminotransferase 19 U/L (6-50); Albumin Level 3.8 g/dL (3.5-5.1); Alkaline Phosphatase 60 U/L (38-126); Anion Gap 13 mmol/L (8-16); Aspartate Amino Transferase 31 U/L (17-59); Bilirubin,Total 0.5 mg/dL (0.2-1.3); Blood Urea Nitrogen 48 mg/dL (9-20); Calcium 8.5 mg/dL (8.4-10.2); Carbon Dioxide 26 mmol/L (22-30); Chloride 97 mmol/L (98-107); Estimated CRCL calculation 9 ml/min; Estimated Glomerular Filt Rate 6; Glucose 131 mg/dL (65-110); Potassium 3.7 mmol/L (3.4-5.0); Sodium 136 mmol/L (137-145)
[2023-03-01 17:38] LABS: Troponin I 0.039 ng/mL (0.000-0.034)
--- NOTE | 2023-03-01 17:41 | ECG_ITS ---
Measurements Intervals [place] Rate: 56 P: 60 [place]: 164 QRS: -51 QRSD: 106 T: 26 QT: 487 QTc: 474 Interpretive Statements SINUS BRADYCARDIA LEFT ANTERIOR FASCICULAR BLOCK NONSPECIFIC T-WAVE ABNORMALITY- INFERIOR LEADS BASELINE ARTIFACT- I, III BORDERLINE ECG COMPARED TO ECG 02/18/2023 14:47:20 NO SIGNIFICANT CHANGES Electronically Signed On 03-01-2023 20:51:22 SPECIAL DEPUTY SHERIFF by Dilan Preciado D.O.
[2023-03-01 18:08] LABS: Appearance Urine Clear (Clear); Bacteria Urine None Seen /hpf; Bilirubin Urine Negative (Negative); Color Urine Yellow (Yellow); Glucose Urine UA Negative (Negative); Ketones Urine Negative (Negative); Leukocyte Esterase Ur Trace LEU/UL (Negative); Nitrate Urine Negative (Negative); Non Pathogenic Casts 0-2; Protein Urine 3+ mg/dL (Negative); Specific Grav Ur 1.015 (1.001-1.035); Squamous Epithelial Cell Urine None seen /hpf (Few); Urobilinogen Urine 0.2 mg/dL (<2.0); WBC Urine 0-5 /hpf; pH Urine 6.5 (5.0-9.0)
[2023-03-01 18:10] LABS: Add Urine Microscopic? YES
[2023-03-01 18:37] VITALS: BP 171/92; PULSE 50; RESP 15; O2SAT 100
--- NOTE | 2023-03-01 20:01 | ECG_ITS ---
Measurements Intervals [place] Rate: 54 P: 52 [place]: 156 QRS: -53 QRSD: 108 T: 12 QT: 465 QTc: 443 Interpretive Statements SINUS BRADYCARDIA LEFT ANTERIOR FASCICULAR BLOCK BORDERLINE ST-T WAVE ABNORMALITY- INF/HIGH LAT LEADS BASELINE ARTIFACT- I, III, AVR, AVL, AVF ABNORMAL ECG COMPARED TO ECG 03/01/2023 17:55:35 NO SIGNIFICANT CHANGES Electronically Signed On 03-01-2023 20:52:13 WARRANTY CLERK by Dilan Preciado D.O.
[2023-03-01] MEDS: ACETAMINOPHEN 500 MG TABLET 1000 MG PO (20:11)
[2023-03-01 20:33] VITALS: BP 202/74; PULSE 55; RESP 20; O2SAT 100
[2023-03-01 20:49] LABS: Troponin I 0.041 ng/mL (0.000-0.034)
[2023-03-01 21:05] VITALS: BP 188/88; PULSE 56; RESP 19; O2SAT 100
[2023-03-01] MEDS: PROCHLORPERAZINE EDISYLATE 10 MG/2 ML VIAL IV PUSH (21:19)
[2023-03-01] MEDS: SODIUM CHLORIDE 0.9% IV 250 ML 999 ML (21:19)
== END 2023-03-01 21:51 | disposition home or self-care (01) ==
PROVIDERS: Emergency Provider Nurse Practitioner Family; PCP Family Medicine
DX: J32.2 Chronic ethmoidal sinusitis (principal); J32.3 Chronic sphenoidal sinusitis; I13.0 Hypertensive heart and chronic kidney disease with heart failure and stage 1 through stage 4 chronic kidney disease, or unspecified chronic kidney disease; N18.4 Chronic kidney disease, stage 4 (severe); R51.9 Headache, unspecified; D64.9 Anemia, unspecified; F41.9 Anxiety disorder, unspecified; E11.22 Type 2 diabetes mellitus with diabetic chronic kidney disease; I50.32 Chronic diastolic (congestive) heart failure; E03.9 Hypothyroidism, unspecified; H35.712 Central serous chorioretinopathy, left eye; K21.9 Gastro-esophageal reflux disease without esophagitis; G47.33 Obstructive sleep apnea (adult) (pediatric); Z96.651 Presence of right artificial knee joint; Z95.5 Presence of coronary angioplasty implant and graft; Z86.16 Personal history of COVID-19; Z85.528 Personal history of other malignant neoplasm of kidney; Z87.440 Personal history of urinary (tract) infections; Z90.49 Acquired absence of other specified parts of digestive tract; Z90.5 Acquired absence of kidney; Z98.42 Cataract extraction status, left eye; Z79.82 Long term (current) use of aspirin; Z79.4 Long term (current) use of insulin; R00.1 Bradycardia, unspecified; I44.4 Left anterior fascicular block; R94.31 Abnormal electrocardiogram [ECG] [EKG]
CPT/HCPCS: 36415; 70450; 80053; 81001; 82948; 84484; 85025; 93005; 96361; 96374; 96375; 99284; A9270; J0780; J2060; J7030; J7050

== ENCOUNTER 2023-03-06 09:37 | Emergency (ER) | payer MEDICARE, SELFPAY ==
[2023-03-06] VITALS (44 sets, daily range): BP systolic 131–179; BP diastolic 72–97; PULSE 45–58; RESP 11–21; TEMP 36.6–36.7; O2SAT 96–100
--- NOTE | ~2023-03-06 | XR_ITS ---
EXAMINATION: XR chest 2V DATE: 03/06/2023 10:53 INDICATION: Midline chest pain. TECHNIQUE: Frontal and lateral views of the chest were obtained on 3 radiographs. COMPARISON: Chest 2 views 01/29/2023 FINDINGS: A calcified right lung nodule is consistent with old granulomatous disease. No pleural effu apoorva or pneumothorax. The heart size is normal. There are changes of median sternotomy. IMPRESSION: 1. No acute cardiopulmonary disease. Reviewed, dictated and finalized at location E. NT ACQUISITION CONSULTANT
--- NOTE | 2023-03-06 09:38 | ECG_ITS ---
Measurements Intervals [place] Rate: 52 P: 87 [place]: 162 QRS: -62 QRSD: 84 T: 240 QT: 340 QTc: 319 Interpretive Statements SINUS BRADYCARDIA LEFT ANTERIOR FASCICULAR BLOCK BORDERLINE ST-T WAVE ABNORMALITY- INF/HIGH LAT LEADS BASELINE ARTIFACT- I, II, AVR, AVL ABNORMAL ECG COMPARED TO ECG 03/01/2023 20:05:22 NO SIGNIFICANT CHANGES Electronically Signed On 03-06-2023 9:57:02 COST REPORT CLERK by Dilan Preciado D.O.
[2023-03-06] MEDS: ASPIRIN 81 MG CHEWABLE TABLET 324 MG PO (09:48)
[2023-03-06 10:38] LABS: Basophils Percent Auto 0.2 % (0.2-1.2); Hematocrit 33.5 % (42.0-52.0); Hemoglobin 10.8 g/dL (14.0-18.0); Immature Granulocyte Absolute 0.08 K/mm3 (0.00-0.031); Immature Granulocyte Percent A 1.2 % (0-0.5); Lymphocytes Absolute Auto 0.79 K/mm3 (0.9-3.2); Mean Corpuscular HGB Conc 32.2 g/dl (32-36); Mean Corpuscular Hemoglobin 31.8 pg (26-34); Mean Corpuscular Volume 98.5 fl (80-100); Monocytes Absolute Auto 0.8 K/mm3 (0.1-0.6); Monocytes Percent Auto 11.5 % (2.6-8.5); Neutrophils Percent Auto 75.1 % (45.5-73.1); Platelet Count Result 157 k/mm3 (150-375); Red Cell Distribution Width 15.2 % (11.5-14.5); White Blood Count 6.6 K/mm3 (4.5-10.0)
[2023-03-06 10:55] LABS: Prothrombin Time 13.6 Seconds (11.1-14.7)
[2023-03-06 10:56] LABS: Partial Thromboplastin Time 27.7 SECONDS (22.3-36.8)
[2023-03-06 10:57] LABS: Alanine Aminotransferase 21 U/L (6-50); Albumin Level 3.7 g/dL (3.5-5.1); Alkaline Phosphatase 32 U/L (38-126); Anion Gap 14 mmol/L (8-16); Aspartate Amino Transferase 37 U/L (17-59); Blood Urea Nitrogen 36 mg/dL (9-20); Calcium 8.9 mg/dL (8.4-10.2); Carbon Dioxide 27 mmol/L (22-30); Chloride 94 mmol/L (98-107); Estimated Glomerular Filt Rate 7; Glucose 146 mg/dL (65-110); Lipase 118 U/L (23-300); Potassium 3.8 mmol/L (3.4-5.0); Sodium 135 mmol/L (137-145)
[2023-03-06 11:10] LABS: Troponin I 0.045 ng/mL (0.000-0.034)
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
[2023-03-06] MEDS: LIDOCAINE 5% PATCH 1 PATCH TRANSDERM (12:48)
[2023-03-06] MEDS: BELLADONNA ALK/PHENOB ELIX 10 ML, MAG HYDROX/ALUMINUM HYD/SIMETH 30 ML, LIDOCAINE HCL 2... PO (12:48)
[2023-03-06] MEDS: LORazepam INJ (*CRX) 2 MG/ML VIAL 0.5 MG IV PUSH (12:48)
[2023-03-06 13:03] LABS: Ammonia < 9 umol/L (9-30)
--- NOTE | 2023-03-06 13:27 | ECG_ITS ---
Measurements Intervals [place] Rate: 46 P: 69 [place]: 169 QRS: -58 QRSD: 101 T: -9 QT: 506 QTc: 447 Interpretive Statements SINUS BRADYCARDIA LEFT ANTERIOR FASCICULAR BLOCK NONSPECIFIC ST & T-WAVE ABNORMALITY- INF/LAT LEADS BASELINE ARTIFACT- I, II, III, AVR, AVL, AVF, V1, V6 ABNORMAL ECG COMPARED TO ECG 03/06/2023 09:45:04 HEART RATE HAS DECREASED Electronically Signed On 03-06-2023 13:44:00 ASSISTANT BASEBALL COACH by Dilan Preciado D.O.
[2023-03-06 14:09] LABS: Troponin I 0.039 ng/mL (0.000-0.034)
[2023-03-06] MEDS: ACETAMINOPHEN 500 MG TABLET 1000 MG PO (15:27)
== END 2023-03-06 15:40 | disposition home or self-care (01) ==
PROVIDERS: Emergency Medicine; Emergency Provider Emergency Medicine; PCP Family Medicine
DX: R07.89 Other chest pain (principal); R51.9 Headache, unspecified; F41.9 Anxiety disorder, unspecified; E11.22 Type 2 diabetes mellitus with diabetic chronic kidney disease; I13.2 Hypertensive heart and chronic kidney disease with heart failure and with stage 5 chronic kidney disease, or end stage renal disease; I50.32 Chronic diastolic (congestive) heart failure; N18.6 End stage renal disease; Z99.2 Dependence on renal dialysis; E78.00 Pure hypercholesterolemia, unspecified; E03.9 Hypothyroidism, unspecified; D64.9 Anemia, unspecified; G47.33 Obstructive sleep apnea (adult) (pediatric); Z95.5 Presence of coronary angioplasty implant and graft; Z96.651 Presence of right artificial knee joint; Z85.528 Personal history of other malignant neoplasm of kidney; Z87.442 Personal history of urinary calculi; Z86.16 Personal history of COVID-19; Z98.42 Cataract extraction status, left eye; Z90.49 Acquired absence of other specified parts of digestive tract; Z79.82 Long term (current) use of aspirin; Z79.4 Long term (current) use of insulin; R00.1 Bradycardia, unspecified; I44.4 Left anterior fascicular block; R94.31 Abnormal electrocardiogram [ECG] [EKG]
CPT/HCPCS: 36415; 71046; 80053; 82140; 83690; 84484; 85025; 85610; 85730; 93005; 96374; 99284; A9270; J2060

== ENCOUNTER 2023-03-07 00:04 | Emergency (ER) | payer MEDICARE, SELFPAY ==
--- NOTE | 2023-03-07 00:06 | ECG_ITS ---
Measurements Intervals [place] Rate: 54 P: 54 [place]: 157 QRS: -64 QRSD: 105 T: -16 QT: 493 QTc: 468 Interpretive Statements SINUS BRADYCARDIA LEFT ANTERIOR FASCICULAR BLOCK BORDERLINE ST-T WAVE ABNORMALITY- INF/LAT LEADS BASELINE WANDER- V3 ABNORMAL ECG COMPARED TO ECG 03/06/2023 13:31:33 NO SIGNIFICANT CHANGES Electronically Signed On 03-07-2023 6:32:40 PICTURES EDITOR by Dilan Preciado D.O.
[2023-03-07 00:22] VITALS: BP 189/82; PULSE 52; RESP 18; TEMP 36.2; O2SAT 100
[2023-03-07 00:36] LABS: Eosinophils Percent Auto 0.1 % (0-4.4); Hematocrit 33.9 % (42.0-52.0); Hemoglobin 10.9 g/dL (14.0-18.0); Immature Granulocyte Percent A 1.4 % (0-0.5); Lymphocytes Absolute Auto 1.15 K/mm3 (0.9-3.2); Lymphocytes Percent Auto 15.8 % (18.3-44.2); Mean Corpuscular HGB Conc 32.2 g/dl (32-36); Mean Corpuscular Hemoglobin 31.7 pg (26-34); Mean Corpuscular Volume 98.5 fl (80-100); Mean Platelet Volume 11.1 fl (7.4-10.4); Monocytes Absolute Auto 0.9 K/mm3 (0.1-0.6); Monocytes Percent Auto 12.8 % (2.6-8.5); Neutrophils Absolute Auto 5.1 K/mm3 (1.3-6.7); Neutrophils Percent Auto 69.9 % (45.5-73.1); Platelet Count Result 154 k/mm3 (150-375); Red Blood Count 3.44 M/mm3 (4.6-6.20); Red Cell Distribution Width 15.1 % (11.5-14.5); White Blood Count 7.3 K/mm3 (4.5-10.0)
[2023-03-07 00:48] LABS: Prothrombin Time 13.4 Seconds (11.1-14.7)
[2023-03-07 00:49] LABS: Potassium 3.8 mmol/L (3.4-5.0)
[2023-03-07 00:54] LABS: Alanine Aminotransferase 24 U/L (6-50); Albumin Level 3.9 g/dL (3.5-5.1); Alkaline Phosphatase 46 U/L (38-126); Anion Gap 12 mmol/L (8-16); Aspartate Amino Transferase 37 U/L (17-59); Bilirubin,Total 0.9 mg/dL (0.2-1.3); Blood Urea Nitrogen 38 mg/dL (9-20); Calcium 9.3 mg/dL (8.4-10.2); Carbon Dioxide 30 mmol/L (22-30); Chloride 92 mmol/L (98-107); Estimated CRCL calculation 10 ml/min; Estimated Glomerular Filt Rate 7; Glucose 174 mg/dL (65-110); Lipase 135 U/L (23-300); Sodium 134 mmol/L (137-145)
[2023-03-07 02:23] VITALS: PULSE 52
[2023-03-07 02:30] VITALS: BP 163/73; PULSE 50; RESP 12; O2SAT 99
[2023-03-07 03:04] LABS: Troponin I 0.048 ng/mL (0.000-0.034)
--- NOTE | 2023-03-07 03:23 | PC.NURSE ---
Pt approached triage desk from room 22 and states if youre not going to do anything, then im going to go home . Pt educated on risks of leaving ED before being seen by provider, pt verbalized understanding. Pt ambulated out of ED with steady gait, in no obvious distress.
--- NOTE | 2023-03-07 17:25 | ECG_ITS ---
Measurements Intervals [place] Rate: 50 P: 74 [place]: 161 QRS: -58 QRSD: 94 T: 17 QT: 464 QTc: 424 Interpretive Statements SINUS BRADYCARDIA LEFT ANTERIOR FASCICULAR BLOCK BORDERLINE ST-T WAVE ABNORMALITY- INF/HIGH LAT LEADS BASELINE ARTIFACT- I, II, III, AVR, AVL,A VF ABNORMAL ECG COMPARED TO ECG 03/07/2023 00:13:29 NO SIGNIFICANT CHANGES Electronically Signed On 03-08-2023 7:59:06 VINYL HANGER by Dilan Preciado D.O.
== END 2023-03-07 03:23 | disposition left against medical advice (07) ==
LOC: ANHED 03:24
PROVIDERS: Student in an Organized Health Care Education/Training Program; PCP Family Medicine
DX: R10.13 Epigastric pain (principal)
CPT/HCPCS: 36415; 80053; 83690; 84484; 85025; 85610; 85730; 93005; 99199

== ENCOUNTER 2023-03-11 20:12 | Inpatient (IN) | payer MEDICARE, SELFPAY ==
[2023-03-11] VITALS (17 sets, daily range): BP systolic 136–186; BP diastolic 68–84; PULSE 53–61; RESP 12–20; TEMP 36.4; O2SAT 97–100
--- NOTE | ~2023-03-11 | MR_ITS ---
EXAMINATION: MRA abdomen wo/w con DATE: 03/18/2023 09:39 INDICATION: Refractory abdominal pain. Renal artery stenosis. TECHNIQUE: Magnetic resonance angiography (MRA) of the abdomen was performed without and with 20 mL M ultihance intravenous contrast. COMPARISON: Abdomen MRI 02/24/12, CT abdomen and pelvis 02/12/2023 FINDINGS: Abdominal aorta is normal in caliber. There is no significant stenosis of celiac axis, superior mesen teric artery, or inferior mesenteric artery. There is mild stenosis of the renal arteries. Partially visualized are cysts and hemorrhagic cysts in the kidneys. There is a 2.7 cm enhancing mass in left k idney upper pole. There is a small volume of ascites. IMPRESSION: 1. 2.7 cm enhancing mass in left kidney upper pole, consistent with renal cell carcinoma. Abdomen CT without and with contrast is recommended. 2. Small volume of ascites. 3. No significant arterial occlusive disease. Reviewed, dictated and finalized at location A. STEAMER
--- NOTE | ~2023-03-11 | MR_ITS ---
EXAMINATION: MR brain/brain stem wo/w con DATE: 03/17/2023 08:54 INDICATION: Dizziness. Headache. TECHNIQUE: Magnetic resonance imaging (MRI) of the brain and brainstem was performed without and with 20 mL MultiHance intravenous contrast. COMPARISON: Head CT 03/11/2023 FINDINGS: There are scattered areas of nonspecific increased T2-weighted signal intensity in the cere bral white matter. There is no intracranial hemorrhage, acute infarction, or abnormal intracranial ma ss lesion. The ventricles are normal in size. There is mild mucosal thickening in the paranasal sinus es. There are likely changes of left ocular lens replacement surgery. There is a trace left mastoid e ffusion. IMPRESSION: 1. Mild nonspecific cerebral white matter disease, which likely represents chronic small vessel ische bobbi disease. Reviewed, dictated and finalized at location A. P HOME COUNSELOR IMPRESSION: 1. Mild nonspecific cerebral white matter disease, which likely represents stock analyst jeffrey small vessel ischemic disease.
--- NOTE | ~2023-03-11 | XR_ITS ---
EXAMINATION: XR chest 2V DATE: 03/11/2023 20:53 INDICATION: Chest pain. Nausea. TECHNIQUE: Frontal and lateral views of the chest were obtained on 3 radiographs. COMPARISON: Chest 2 views 03/06/2023 FINDINGS: There is mild atelectasis in the lower lung zones. A calcified right lung nodule is consist ent with old granulomatous disease. No pleural effusion or pneumothorax. The heart size is normal. Th ere are changes of median sternotomy. There is mild chronic anterior wedging of multiple lower thorac ic vertebral bodies. IMPRESSION: 1. Mild atelectasis in the lower lung zones. Reviewed, dictated and finalized at location E. ARATION ROOM MANAGER
--- NOTE | ~2023-03-11 | CT_ITS ---
EXAMINATION: CT brain wo con DATE: 03/11/2023 22:56 INDICATION: Headache. TECHNIQUE: Computed tomography (CT) of the head was performed without intravenous contrast. The mA wa s adjusted according to patient size. Iterative reconstruction technique was employed. The dose-lengt h product was 681.00 mGy-cm. COMPARISON: Head CT 03/01/2023 FINDINGS: There are scattered areas of low attenuation in the cerebral white matter, which is within normal limits for the patient's age. There is no intracranial hemorrhage, acute infarction, or abnorm al intracranial mass lesion. The ventricles are normal in size. There is mucosal thickening in the pa ranasal sinuses including near complete opacification of sphenoid sinus. There is sclerosis of the wa lls of sphenoid and posterior ethmoid sinuses, consistent with chronic sinusitis. The mastoid air joe ls are normal. There are likely changes of left ocular lens replacement surgery. IMPRESSION: 1. Normal aging brain. 2. Chronic sinusitis. Reviewed, dictated and finalized at location E. BBER OPERATOR
--- NOTE | ~2023-03-11 | XR_ITS ---
EXAMINATION: XR chest 1V portable DATE: 03/19/2023 16:59 INDICATION: Chest pain TECHNIQUE: frontal view of the chest was obtained. COMPARISON: Chest radiograph dated 03/11/2023 FINDINGS: The lungs are clear with no focal airspace opacities, pulmonary edema, pleural effusion or pneumothor ax. The cardiomediastinal silhouette is normal. Median sternotomy with malleable plate and screw fixa tion along the sternum. IMPRESSION: 1. No acute cardiopulmonary disease. Reviewed, dictated and finalized at location A. [employer]
--- NOTE | 2023-03-11 20:13 | ECG_ITS ---
Measurements Intervals [place] Rate: 55 P: 60 [place]: 154 QRS: -62 QRSD: 110 T: 21 QT: 471 QTc: 451 Interpretive Statements SINUS BRADYCARDIA INCOMPLETE RIGHT BUNDLE BRANCH BLOCK LEFT ANTERIOR FASCICULAR BLOCK CANNOT RULE OUT SEPTAL INFARCT, AGE INDETERMINATE BASELINE ARTIFACT- I, II, III, AVR, AVL ABNORMAL ECG COMPARED TO ECG 03/07/2023 01:45:43 NO SIGNIFICANT CHANGES Electronically Signed On 03-12-2023 6:39:08 STADIUM MANAGER by Dilan Preciado D.O.
[2023-03-11 20:48] LABS: Basophils Percent Auto 0.2 % (0.2-1.2); Hemoglobin 12.2 g/dL (14.0-18.0); Immature Granulocyte Absolute 0.18 K/mm3 (0.00-0.031); Immature Granulocyte Percent A 1.7 % (0-0.5); Lymphocytes Absolute Auto 1.14 K/mm3 (0.9-3.2); Lymphocytes Percent Auto 10.8 % (18.3-44.2); Mean Corpuscular Hemoglobin 32.3 pg (26-34); Mean Corpuscular Volume 97.9 fl (80-100); Mean Platelet Volume 10.8 fl (7.4-10.4); Monocytes Absolute Auto 1.1 K/mm3 (0.1-0.6); Monocytes Percent Auto 10.6 % (2.6-8.5); Neutrophils Absolute Auto 8.1 K/mm3 (1.3-6.7); Neutrophils Percent Auto 76.7 % (45.5-73.1); Nucleated Red Blood Cells Perc 0.2 % (0.0-0.2); Platelet Count Result 184 k/mm3 (150-375); Red Blood Count 3.78 M/mm3 (4.6-6.20); Red Cell Distribution Width 15.9 % (11.5-14.5); White Blood Count 10.5 K/mm3 (4.5-10.0)
[2023-03-11 20:58] LABS: Alanine Aminotransferase 30 U/L (6-50); Albumin Level 4.2 g/dL (3.5-5.1); Alkaline Phosphatase 112 U/L (38-126); Anion Gap 16 mmol/L (8-16); Aspartate Amino Transferase 31 U/L (17-59); Bilirubin,Total 0.6 mg/dL (0.2-1.3); Blood Urea Nitrogen 36 mg/dL (9-20); Calcium 10.2 mg/dL (8.4-10.2); Carbon Dioxide 28 mmol/L (22-30); Chloride 93 mmol/L (98-107); Estimated CRCL calculation 10 ml/min; Estimated Glomerular Filt Rate 7; Glucose 241 mg/dL (65-110); Lipase 161 U/L (23-300); Potassium 3.6 mmol/L (3.4-5.0); Sodium 137 mmol/L (137-145)
[2023-03-11 21:07] LABS: Partial Thromboplastin Time 25.8 SECONDS (22.3-36.8)
[2023-03-11 21:14] LABS: Troponin I 0.073 ng/mL (0.000-0.034)
[2023-03-11] MEDS: ASPIRIN 81 MG CHEWABLE TABLET 324 MG PO (21:52)
[2023-03-11] MEDS: hydrALAZINE HCL 20 MG/ML VIAL 10 MG IV PUSH (22:45)
[2023-03-11 23:18] LABS: Troponin I 0.072 ng/mL (0.000-0.034)
--- NOTE | 2023-03-11 23:47 | ED.GENADULT ---
HPI - General Adult General Chief complaint: Chest Pain Stated complaint: high blood pressures Time Seen by Provider: 03/11/23 21:44 History of Present Illness HPI narrative: Patient is a 68-year-old gentleman who presents emergency department with chief complaint of chest discomfort and headache. The patient reports that he has prior history of end-stage renal disease on peritoneal dialysis sees Dr. Mccall as his primary advisor advocate angel co founder patient states he has had some difficulty with controlling his blood pressure and reports that he had a burning-like sensation in his chest and pressure in his head the patient states his blood pressure was 222/90 at home took an extra dose of his blood pressure medicines after talking to his primary care provider and his headache and his pressure still stayed elevated and decided to come to the emergency department. Related Data Home Medications Medication Instructions Recorded Confirmed aspirin 81 mg tablet,delayed 81 mg PO DAILY 02/01/19 03/10/23 release (Sami Low Dose Aspirin) vit C 250 mg-vit E 200 unit-zinc 1 tablet PO BID 02/01/19 03/10/23 12.5 mg-copper 1 ok-cnd-lgcoyt tablet (ICaps AREDS2 (copper citrate)) blood sugar diagnostic (OneTouch 05/14/19 03/10/23 Ultra Blue Test Strip) carvedilol 25 mg tablet (Coreg) 25 mg PO BID 09/06/19 03/10/23 insulin glargine 100 unit/mL (3 50 unit subcut BID 10/12/21 03/10/23 mL) subcutaneous pen (Basaglar KwikPen U-100 Insulin) lisinopril 20 mg tablet 20 mg PO HS 08/12/22 03/10/23 potassium chloride 10 mEq 10 meq PO DAILY 08/12/22 03/10/23 capsule,extended release atorvastatin 80 mg tablet 80 mg PO DAILY 10/01/22 03/10/23 cholecalciferol (vitamin D3) 125 125 mcg PO DAILY 10/01/22 03/10/23 mcg (5,000 unit) tablet (Vitamin D3) folic acid 0.8 mg-vit B comp with 1 tablet PO DAILY 10/01/22 03/10/23 O-rttu-kyqogpu D3 2,000 unit tablet (Dialyvite 800-Ultra D) furosemide 80 mg tablet 80 mg PO BID 10/01/22 03/10/23 insulin aspart U-100 100 unit/mL subcut 10/01/22 03/10/23 (3 mL) subcutaneous pen (Novolog FlexPen U-100 Insulin aspart) tamsulosin 0.4 mg capsule 0.4 mg PO HS 10/01/22 03/10/23 guanfacine 3 mg tablet,extended 1.5 mg PO HS 03/10/23 03/10/23 release 24 hr Allergies Allergy/AdvReac Type Severity Reaction Status Date / Time oxycodone Allergy Hallucinati Verified 03/10/23 13:08 ng Review of Systems Review of Systems: A 10 system review of systems was completed on the patient and is negative except for what is stated in the HPI. Nursing and ancillary documentation was reviewed. 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 Adult hypothyroidism Anemia Anxiety Chronic diastolic (congestive) heart failure Chronic GERD Chronic kidney disease, stage 4 (severe) COVID-19 Diabetes Dysphagia History of kidney cancer Hy kid NOS w cr kid I-IV Hypercholesterolemia Hypertension Increased prostate specific antigen (PSA) velocity Left kidney mass Neoplasm of kidney SHABNAM (obstructive sleep apnea) Pituitary tumor Rhinitis Urinary tract infection Viral URI Surgical History Surgical History Adenoma of pituitary History of cholecystectomy History of partial nephrectomy Status post left cataract extraction Status post right knee replacement Status post total right knee replacement Stented coronary artery Family History Family History Mother Hypertension Cerebrovascular accident Father Family history of malignant neoplasm Carcinoma of colon Social History Social History Social History: Patient lives at home with his Harriet who will be his surrogate. Patient a nonsmoker and wilberto
[2023-03-12] VITALS (75 sets, daily range): BP systolic 124–189; BP diastolic 46–105; PULSE 49–70; RESP 9–36; TEMP 36.4–37.2; O2SAT 82–100; BMI 34.8
--- NOTE | 2023-03-12 | ECHO_ITS ---
Patient Info Name: Kendall Carl Age: 68 years : 1955 Gender: Male Ht: 68 in Wt: 229 lbs BSA: 2.27 m2 HR: 67 bpm BP: 175 / 78 mmHg Heart Rhythm: Sinus Rhythm Technical Quality: Fair Exam Date: 03/12/2023 1:58 PM Exam Location: Echo Lab Exam Room: [facility] Patient Status: Outpatient Admit Date: 03/12/2023 Staff Ordering Physician: Luis Felipe Murphy APRN Head Of Mathematics: Cinthia Laguna RDCS Attending Provider: Krystal Johnson DO Referring Physician: Jeffrey JOYA; Exam Type: CA echo doppler color flow Study Info Indications - CHEST PAIN Complete two-dimensional, color flow and Doppler transthoracic echocardiogram is performed. Summary 1. Complete two-dimensional, color flow and Doppler transthoracic echocardiogram is performed. 2. Left ventricular chamber dimension is normal. 3. Left ventricular systolic function is normal, estimated at 65-70%. 4. There is severe asymmetric septal increased left ventricular wall thickness. 5. The left ventricular diastolic function is grade I diastolic dysfunction. 6. Left atrial chamber dimension is mildly enlarged. 7. There is mild mitral valve stenosis. 8. The mitral valve annulus is severely calcified. 9. There is mild tricuspid valve regurgitation. Left Ventricle Left ventricular chamber dimension is normal. Left ventricular systolic function is normal, estimated at 65-70%. There is severe asymmetric septal increased left ventricular wall thickness. The left ventricular diastolic function is grade I diastolic dysfunction. Right Ventricle Right ventricular chamber dimension is normal. Right ventricular systolic function is normal. Left Atria Left atrial chamber dimension is mildly enlarged. Right Atria Right atrial chamber dimension is normal. Atrial Septum Intact interatrial septum visualized by color flow imaging. Aortic Valve The aortic valve is trileaflet. There is mild aortic valve sclerosis. There is no aortic valve stenosis. There is trace aortic valve regurgitation. Pulmonic Valve The pulmonic valve is normal. There is no pulmonic valve stenosis. There is trace pulmonic regurgitation. Mitral Valve There is mild mitral valve stenosis. There is trace mitral valve regurgitation. The mitral valve annulus is severely calcified. Tricuspid Valve The tricuspid valve leaflets are normal. There is no significant tricuspid valve stenosis. There is mild tricuspid valve regurgitation. No pulmonary hypertension, estimated pulmonary arterial systolic pressure is 34 mmHg. Pericardium/Pleural The pericardium appears normal. There is no pericardial effusion. Inferior Vena Cava Normal inferior vena cava with >50% collapse upon inspiration consistent with normal right atrial pressure, 8 mmHg. Aorta The aortic root size at the sinus of Valsalva is normal. Left Ventricular Outflow Tract Name Value Normal LVOT 2D LVOT Diameter 2.1 cm LVOT Doppler LVOT Peak Gradient 8 mmHg LVOT Mean Gradient 5 mmHg LVOT VTI 27 cm LVOT VTI/AV VTI Ratio 0.9 LVOT Stroke Volume 88 ml
[2023-03-12] MEDS: BELLADONNA ALK/PHENOB ELIX 10 ML, MAG HYDROX/ALUMINUM HYD/SIMETH 30 ML, LIDOCAINE HCL 2... PO ×2 (00:18→11:44)
--- NOTE | 2023-03-12 01:47 | PC.NURSE ---
Pt removed himself from monitoring despite being told importance of monitoring. States is wanting to eat first and then will get hooked back up. ERP ok with pt eating.
[2023-03-12 02:59] LABS: Troponin I 0.076 ng/mL (0.000-0.034)
--- NOTE | 2023-03-12 04:20 | PC.NURSE ---
Pt c/o headache. Orders received.
[2023-03-12] MEDS: ACETAMINOPHEN 500 MG TABLET 1000 MG PO (04:25)
[2023-03-12] MEDS: hydrALAZINE HCL 20 MG/ML VIAL 10 MG IV PUSH ×2 (05:41→13:08)
--- NOTE | 2023-03-12 07:25 | ADMIMU ---
This patient, Kendall Carl, was admitted to IMU status, and placed in Intensive Care Unit-4. Patient/family oriented to hospital policies and general routines including ID bracelet, bed and alarms, visiting hours, pain management, procedures, bathroom and other care routines, personal items, smoking policy, room service/diet, and visiting hours. Valuables list has been completed. Information on how to activate the Rapid Response Team has been discussed. Patient/Family are encouraged to report perceived risks to care and to ask questions if they do not understand what they are told or what they should do.
[2023-03-12 07:43] LABS: Glucose Point of Care 250 mg/dl (65-105)
--- NOTE | 2023-03-12 08:19 | PM.IMHP ---
H&P: HPI History of Present Illness Date/Time: 03/12/23 08:19 Chief Complaint: Epigastric pain, chest pain, hypertensive crisis Narrative: This is a 68-year-old male patient with past history of renal failure on peritoneal dialysis, obstructive sleep apnea, insulin-dependent diabetes, anxiety high cholesterol and prior kidney cancer who was admitted to the hospital for epigastric pain/left lower chest pain/missing dialysis. Patient reports that he was sitting up his peritoneal dialysis last night when he began to return epigastric pain radiating into his chest. He checked his blood pressure at home and had 229/130 so he called his primary care provider who told him to take lorazepam and if still elevated take additional dose of guanfacine and another dose lisinopril. Patient presented to the emergency department for what appears to be his 12th visit in less than a month mostly for similar symptoms. Patient did not complete his peritoneal dialysis and it sounds like he has been cutting some sessions short recently in order to go to the emergency department. Patient and his described recurrent symptoms of epigastric pain and tightness that had been ongoing for a long period of time a today also associated with significant belching indigestion gas peeling. While in the emergency department GI cocktail did help his symptoms and he was able to sleep. describes persistent insomnia for the patient where he will lay awake all night because he is scared if he goes to sleep he will not wake up. Patient admits that he feels this way was supposed to be started on sertraline but stopped that after about a week and a half. Today he was admitted to the hospital because of troponin elevation above his baseline. Due to significant past medical problems including diabetes renal failure we will consult Cardiology. Nephrology has also been consulted but has not yet seen the patient. On my examination patient again continued to complain of dyspepsia with some relief with belching as well as the pain described above. Laboratory assessment shows creatinine of 7.9 BUN 36 with normal potassium normal sodium and normal carbon dioxide. Anion gap is slightly elevated at 16. Serum glucose was 241. Patient is on high-dose insulin that will be continued. Patient only started coming to the emergency department for these symptoms at the end of January, otherwise he had only been in the ER 2 times related to constipation prior to this string of visits. Patient reports compliance with his CPAP but states that every morning when he wakes up he is very confused for hours. 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 Adult hypothyroidism Anemia Anxiety Chronic diastolic (congestive) heart failure Chronic GERD Chronic kidney disease, stage 4 (severe) COVID-19 Diabetes Dysphagia History of kidney cancer Hy kid NOS w cr kid I-IV Hypercholesterolemia Hypertension Increased prostate specific antigen (PSA) velocity Left kidney mass Neoplasm of kidney SHABNAM (obstructive sleep apnea) Pituitary tumor Rhinitis Urinary tract infection Viral URI Surgical History Surgical History Adenoma of pituitary History of cholecystectomy History of partial nephrectomy Status post left cataract extraction Status post right knee replacement Status post total right knee replacement Stented coronary artery Family History Family History
[2023-03-12] MEDS: INSULIN ASPART (*BKC) 100 UNITS/ML SUB-Q ×2 (08:24→20:51)
[2023-03-12 09:18] LABS: MRSA (PCR) NOT DETECTED (NOT DETECTE)
[2023-03-12] MEDS: ASPIRIN 81 MG ENTERIC TABLET PO (11:44)
[2023-03-12] MEDS: FUROSEMIDE 80 MG TABLET 160 MG PO ×2 (11:45→15:09)
[2023-03-12] MEDS: carvediloL 25 MG TABLET PO ×2 (11:45→20:51)
[2023-03-12] MEDS: LEVOTHYROXINE SODIUM 112 MCG TABLET PO (11:45)
[2023-03-12] MEDS: OPTI-GEN TAB 1 TABLET PO ×2 (11:45→20:46)
[2023-03-12] MEDS: dilTIAZem HCL CD 240 MG CAP.24HR PO (11:45)
[2023-03-12] MEDS: INSULIN GLARGINE (*BKC) 100 UNITS/ML 40 UNITS SUB-Q ×2 (11:52→20:52)
[2023-03-12 11:59] LABS: Glucose Point of Care 169 mg/dl (65-105)
--- NOTE | 2023-03-12 13:00 | PM.CNNEP ---
Assessment and Plan Assessment and plan (1) End stage renal disease: Code(s): N18.6 - End stage renal disease Status: Chronic Assessment and Plan: resume CCPD tonight follow electrolytes, volume status, and clearance (2) Epigastric pain: Code(s): R10.13 - Epigastric pain Status: Acute Assessment and Plan: described as pain after eating GI cocktail helped -- PUD versus GERD versus something else consider GI consultation for further evaluation (3) Hypertension: Code(s): I10 - Essential (primary) hypertension Status: Chronic Assessment and Plan: quite elevated on presentation reasonable control now continue home medications follow trend of hemodynamics (4) Anemia: Code(s): D64.9 - Anemia, unspecified Status: Chronic Assessment and Plan: H/H at goal for ESRD follow trend of H/H start Epogen if Hgb drops below 10 (5) Diabetes mellitus: Code(s): E11.9 - Type 2 diabetes mellitus without complications Status: Chronic Assessment and Plan: follow accu-cheks glycemic controlper hospitalists I will continue to follow patient with you while he remains hospitalized and make further recommendations during his hospital course. Thank you for allowing me to participate in the care this patient. History of Present Illness Reason for Consult Consult date: 03/12/23 Reason for consult: end stage renal disease Chief Complaint Chief complaint: Hypertensive Urgency, Chest Pain, Elevated Troponi History of Present Illness Narrative: The patient is a 68-year-old male with a past medical history as outlined below who presented to [facility] with complaints epigastric abdominal pain. Yesterday evening, while he was setting up his peritoneal dialysis for the evening, he had sudden onset epigastric pain that radiated into his chest. As he has been having some issues and problems with blood pressure control recently, he checked his home blood pressure reading it was apparently 229/130. He called his primary care physician via the exchange and he was instructed to take a lorazepam an additional dose of Tenex with his scheduled lisinopril if his blood pressure and not improved. Nonetheless, given the concern of his elevated blood pressure with the new onset pain, he presented to the ER for further assessment. From review of his records, the patient has had multiple ER visits for similar complaints. The recurrent epigastric pain is described as a tightness that is associated with belching and indigestion. In the emergency room, he was given a GI cocktail which actually seemed to help his symptoms. His also reports significant insomnia coupled with anxiety as he feels that if he goes to sleep, he will not wake up. He apparently was supposed to start Zoloft as a treatment for this issue but he seemed to stop it after week as he felt that did not seem to help things. Further workup and evaluation emergency room demonstrated labs consistent with his known history of end-stage renal disease with a mild troponin elevation. He continued to have on off epigastric pain in the ER that seemed to help with felt she. Given his complex medical history and constellation of symptoms as noted, he was admitted the hospital for further evaluation and therapy. Renal consultation was requested due to his end-stage renal disease. The patient normally does peritoneal dialysis every evening through [facility] under the care of Dr. Alan Mccall. From a dialysis perspective, he has been doing reasonably well although has already mentioned, he has been having issues and problems with blood pressure control that has required multiple medication changes and adjustments. The etiology of his recurrent epigastric pain has never been fully explained but peritonitis has been ruled out on numerous occasions by peritoneal fluid testin
--- NOTE | 2023-03-12 13:13 | PM.CNCAR ---
Assessment and Plan Assessment and plan (1) Hypertensive urgency: Code(s): I16.0 - Hypertensive urgency Status: Acute Assessment and Plan: Improved. Continue carvedilol, diltiazem, guanfacine, lisinopril. (2) Elevated troponin: Code(s): R79.89 - Other specified abnormal findings of blood chemistry Status: Acute Assessment and Plan: Elevated troponins are not related ACS. They are chronically elevated without significant rise or fall. There from a combination of severe hypertension as well as renal disease (3) End-stage renal disease on peritoneal dialysis: Code(s): N18.6 - End stage renal disease; Z99.2 - Dependence on renal dialysis Status: Acute Assessment and Plan: On peritoneal dialysis followed at [place] (4) CAD (coronary artery disease): Code(s): I25.10 - Atherosclerotic heart disease of [place] coronary artery without angina pectoris Status: Acute Assessment and Plan: Reportedly had a stress test at [facility] last fall which was reportedly unremarkable. Will request records. His epigastric pain does not sound anginal. His worsened with food and while postprandial angina is a possibility, the fact that his symptoms improved with a GI cocktail would indicate a GI etiology. Consider GI consultation. Continue PPI. 2D echocardiogram with Dopplers already ordered will be reviewed (5) Epigastric pain: Code(s): R10.13 - Epigastric pain Status: Acute Assessment and Plan: As detailed above. ECG does not show any acute ST or T-wave abnormalities. History of Present Illness History of Present Illness Consult date/time: 03/12/23 13:13 Requesting physician: Luis Felipe Murphy, [employer] Consult reason: chest pain Reason For Visit: Hypertensive Urgency, Chest Pain, Elevated Troponi Narrative: Date of consultation 03/12/2023 Reason for consultation epigastric pain, belching, elevated troponin Requesting provider: Luis Felipe Murphy History patient is a 68-year-old male who has a history of coronary disease. He follows at [facility]. Reportedly had a stress test and echocardiogram last fall was was unremarkable. He has end-stage renal disease, obesity, hypertension. Came the hospital yesterday because of markedly elevated blood pressure. Blood pressure was a size 222/98. Coronary history consists of stenting to the LAD in 2020. Patient has been describing some epigastric pain that occurs generally after eating. This has been occurring after his sternum was plated together following an accident. He has no exertional chest pain. No syncope, presyncope, paroxysmal nocturnal dyspnea, orthopnea, edema. Typically his blood pressure ranges from 140-160 systolic. He did have a headache yesterday with markedly elevated blood pressure. He was given a GI cocktail yesterday in the ER which did help his epigastric discomfort. Troponins were drawn which are minimally elevated without significant rise or fall. He has chronically elevated troponins. Review of Systems Review of Systems: All systems reviewed & are unremarkable except as noted in HPI and below Constitutional: Constitutional: Denies body ache(s) Eyes: Eyes: Denies blurry vision ENT: Reports Normal hearing present Cardiovascular: Cardiovascular: Reports chest pain, Denies leg edema and Denies palpitations Respiratory: Respiratory: Denies dyspnea on exertion Gastrointestinal: Gastrointestinal: Reports abdominal pain Genitourinary: Genitourinary: Denies hematuria Musculoskeletal: Musculoskeletal: Reports arthralgias Integumentary/Breasts: Skin/Breast: Denies erythema Neurologic: Denies Abnormal speech present Psychiatric: Psychiatric: Denies anxiety Endocrine: Endocrine: Denies excessive sweating Hematologic/Lymphatic: Hematologic/Lymphatic: Denies easy bleeding Allergic/Immunologic: Allergic/Immunologic: Denies GI upset with certain foods
[2023-03-12] MEDS: CHOLECALCIFEROL 1,000 UNITS TABLET 5000 UNITS PO (15:08)
[2023-03-12] MEDS: ACETAMINOPHEN 325 MG TABLET 650 MG PO (15:09)
[2023-03-12] MEDS: POTASSIUM CHLORIDE 10 MEQ ER TABLET PO (15:09)
--- NOTE | 2023-03-12 15:25 | PC.NURSE ---
Gabriel Murphy NP notified of no GI professor of communication and writing until further notice. No new orders
[2023-03-12 16:22] LABS: Glucose Point of Care 185 mg/dl (65-105)
[2023-03-12 16:32] LABS: Appearance Urine Clear (Clear); Bacteria Urine None Seen /hpf; Bilirubin Urine Negative (Negative); Blood Urine Trace (Negative); Color Urine Yellow (Yellow); Glucose Urine UA Trace mg/dL (Negative); Ketones Urine Negative (Negative); Leukocyte Esterase Ur Trace LEU/UL (Negative); Nitrate Urine Negative (Negative); Non Pathogenic Casts 0-2; Protein Urine 3+ mg/dL (Negative); RBC Urine 0-2 /hpf (0-2); Specific Grav Ur 1.015 (1.001-1.035); Squamous Epithelial Cell Urine None seen /hpf (Few); Urobilinogen Urine 0.2 mg/dL (<2.0); pH Urine 6.5 (5.0-9.0)
[2023-03-12 16:35] LABS: Add Urine Microscopic? YES
--- NOTE | 2023-03-12 16:35 | PC.NURSE ---
Pt refusing meal time scheduled insulin of 30 units of NovoLog. Pt also refusing Renvela. MAGALI Rios notified of pt refusing medications and that blood sugars have been less than 200 since arrival. New order to stop 30 units of NovoLog and continue with the high-dose sliding sale. Continue to encourage pt to take Renvela.
--- NOTE | 2023-03-12 17:23 | PC.NURSE ---
This patient, Kendall Carl, was transferred to [[facility]] on 03/12/23 at 1723. Personal belongings sent with patient. Report given to [ Tyler. STORY @ 1789]. Appropriate documentation sent with patient. Family at bedside. ABX sent with pt to be given on medical
--- NOTE | 2023-03-12 17:36 | PC.NURSE ---
This patient, Kendall Carl, was received from ICU 4 on 03/12/23 at 1736. Patient/family oriented to unit policies and routines
--- NOTE | 2023-03-12 17:59 | PHAR ---
DRUG NAME: GUANFACINE INGREDIENTS: GUANFACINE HYDROCHLORIDE -- 3 MG COLOR: YELLOW SHAPE: LYTTON IMPRINT: 853 IMPRINT CODE DESCRIPTION: DEBOSSED WITH [employer] ELLIPSE (HALF YUAN SHAPE LOGO) ON ONE SIDE AND 853 ON THE OTHER SIDE. FORM: ORAL TABLET, EXTENDED RELEASE (Intuniv(R) extended-release) Do not crush, chew, or break tablets
[2023-03-12 20:14] LABS: Appearance Peritoneal Fluid Clear (Clear); Color Peritoneal Fluid Colorless (Colorless); Source Peritoneal Fluid Peritoneal Fluid
[2023-03-12 20:15] LABS: Lymphocytes Peritoneal Fluid 9 %; Monocytes Peritoneal Fluid 87 %; Neutrophils Peritoneal Fluid 4 % (0-25); Nucleated Cells Peritoneal Flu 26 /uL (0-500); RBC Peritoneal Fluid < 2000 /uL (0-100000)
[2023-03-12] MEDS: ATORVASTATIN 40 MG TABLET 80 MG PO (20:46)
[2023-03-12] MEDS: SALINE 0.65% NAS SOLN 44 ML BTL 1 SPRAY NASAL (20:46)
[2023-03-12] MEDS: HEPARIN SODIUM 5,000 UNITS/ML VIAL 5000 UNITS SUB-Q (20:47)
[2023-03-12] MEDS: TAMSULOSIN HCL 0.4 MG CAPSULE PO (20:47)
[2023-03-12] MEDS: lisinopriL 20 MG TABLET PO (20:47)
[2023-03-12] MEDS: PANTOPRAZOLE 40 MG TABLET PO (20:47)
[2023-03-12 21:17] LABS: Glucose Point of Care 238 mg/dl (65-105)
[2023-03-12] MEDS: LORazepam (*CRX) 0.5 MG TABLET PO (21:59)
[2023-03-13] VITALS (11 sets, daily range): BP systolic 115–173; BP diastolic 56–78; PULSE 56–72; RESP 17–21; TEMP 36.3–37; O2SAT 98–100
[2023-03-13 05:51] LABS: Basophils Percent Auto 0.1 % (0.2-1.2); Eosinophils Percent Auto 0.1 % (0-4.4); Hematocrit 33.1 % (42.0-52.0); Hemoglobin 10.6 g/dL (14.0-18.0); Immature Granulocyte Absolute 0.18 K/mm3 (0.00-0.031); Immature Granulocyte Percent A 2.5 % (0-0.5); Lymphocytes Absolute Auto 1.06 K/mm3 (0.9-3.2); Lymphocytes Percent Auto 14.7 % (18.3-44.2); Mean Corpuscular Hemoglobin 31.9 pg (26-34); Mean Corpuscular Volume 99.7 fl (80-100); Mean Platelet Volume 10.9 fl (7.4-10.4); Monocytes Absolute Auto 0.9 K/mm3 (0.1-0.6); Monocytes Percent Auto 12.1 % (2.6-8.5); Neutrophils Absolute Auto 5.1 K/mm3 (1.3-6.7); Neutrophils Percent Auto 70.5 % (45.5-73.1); Nucleated Red Blood Cells Perc 0.3 % (0.0-0.2); Platelet Count Result 134 k/mm3 (150-375); Red Blood Count 3.32 M/mm3 (4.6-6.20); Red Cell Distribution Width 16.2 % (11.5-14.5); White Blood Count 7.2 K/mm3 (4.5-10.0)
[2023-03-13 06:08] LABS: Albumin Level 3.4 g/dL (3.5-5.1); Anion Gap 12 mmol/L (8-16); Blood Urea Nitrogen 39 mg/dL (9-20); Calcium 9.8 mg/dL (8.4-10.2); Carbon Dioxide 28 mmol/L (22-30); Chloride 96 mmol/L (98-107); Estimated CRCL calculation 10 ml/min; Estimated Glomerular Filt Rate 7; Glucose 126 mg/dL (65-110); Magnesium 2.8 mg/dL (1.6-2.3); Phosphorus 3.5 mg/dL (2.5-4.5); Potassium 3.3 mmol/L (3.4-5.0); Sodium 136 mmol/L (137-145)
[2023-03-13 07:13] LABS: Hepatitis B Surface Antigen Negative (Negative)
[2023-03-13 07:24] LABS: Hepatitis B Surface Anti Res Negative
[2023-03-13] MEDS: LEVOTHYROXINE SODIUM 112 MCG TABLET PO (08:22)
[2023-03-13] MEDS: ASPIRIN 81 MG ENTERIC TABLET PO (08:25)
[2023-03-13] MEDS: HEPARIN SODIUM 5,000 UNITS/ML VIAL 5000 UNITS SUB-Q ×2 (08:26→20:37)
[2023-03-13] MEDS: OPTI-GEN TAB 1 TABLET PO (08:30)
[2023-03-13 08:39] LABS: Glucose Point of Care 112 mg/dl (65-105)
[2023-03-13] MEDS: FUROSEMIDE 80 MG TABLET 160 MG PO ×2 (09:02→14:36)
[2023-03-13] MEDS: dilTIAZem HCL CD 240 MG CAP.24HR PO (09:02)
[2023-03-13] MEDS: carvediloL 25 MG TABLET PO ×2 (09:02→20:37)
[2023-03-13] MEDS: INSULIN GLARGINE (*BKC) 100 UNITS/ML 40 UNITS SUB-Q ×2 (09:05→20:37)
[2023-03-13] MEDS: CALCIUM CARBONATE (TUMS) 500 MG (200 MG ELEMENTAL) PO ×2 (10:39→18:06)
--- NOTE | 2023-03-13 10:53 | ECG_ITS ---
Measurements Intervals [place] Rate: 58 P: 60 DE: 165 QRS: -61 QRSD: 110 T: 28 QT: 483 QTc: 477 Interpretive Statements SINUS BRADYCARDIA LEFT ANTERIOR FASCICULAR BLOCK BORDERLINE T WAVE ABNORMALITY- INFERIOR LEADS BASELINE WANDER- V1-V3, V6 ABNORMAL ECG COMPARED TO ECG 03/11/2023 20:19:00 Electronically Signed On 03-13-2023 12:06:39 [employer]PERVIS[employer]ATING [employer]INT [employer]SEM[employer] by Dilan Preciado D.O.
--- NOTE | 2023-03-13 10:53 | PM.PNCARD ---
Progress Note: A&P Assessment and Plan (1) Hypertensive urgency: Code(s): I16.0 - Hypertensive urgency Status: Acute Assessment and Plan: Improved. Continue carvedilol, diltiazem, guanfacine, lisinopril. (2) Elevated troponin: Code(s): R79.89 - Other specified abnormal findings of blood chemistry Status: Acute Assessment and Plan: Elevated troponins are not related ACS. They are chronically elevated without significant rise or fall. There from a combination of severe hypertension as well as renal disease (3) End-stage renal disease on peritoneal dialysis: Code(s): N18.6 - End stage renal disease; Z99.2 - Dependence on renal dialysis Status: Acute Assessment and Plan: On peritoneal dialysis followed at [place] (4) CAD (coronary artery disease): Code(s): I25.10 - Atherosclerotic heart disease of [place] coronary artery without angina pectoris Status: Acute Assessment and Plan: Reportedly had a stress test at [facility] last fall which was reportedly unremarkable. Will request records. His epigastric pain does not sound anginal. His worsened with food and while postprandial angina is a possibility, the fact that his symptoms improved with a GI cocktail would indicate a GI etiology. Continue PPI. Echocardiogram reviewed (5) Epigastric pain: Code(s): R10.13 - Epigastric pain Status: Acute Assessment and Plan: As detailed above. Will repeat a stat EKG now. I once again recommend GI evaluation as his symptoms predominantly occur after eating food, possible duodenal ulcer. Will give a GI cocktail Subjective Date/time seen: 03/13/23 10:53 Interval history: 68-year-old admitted because of hypertensive urgency Date of service 03/13/2023: Was doing fine until he ate breakfast. Since then he has been complaining of epigastric pain as well as dizziness. No shortness of Review of Systems Review of Systems: All systems reviewed & are unremarkable except as noted in HPI and below Constitutional: Constitutional: Denies body ache(s) and Denies excessive sweating Eyes: Eyes: Denies blurry vision ENT: Reports Normal hearing present Cardiovascular: Cardiovascular: Reports chest pain, Denies leg edema, Denies palpitations and Denies dyspnea on exertion Respiratory: Respiratory: Denies dyspnea on exertion Gastrointestinal: Gastrointestinal: Reports abdominal pain Genitourinary: Genitourinary: Denies hematuria Musculoskeletal: Musculoskeletal: Reports arthralgias Integumentary/Breasts: Skin/Breast: Denies erythema Neurologic: Reports Normal hearing present and Denies Abnormal speech present Psychiatric: Psychiatric: Denies anxiety Endocrine: Endocrine: Denies excessive sweating and Denies palpitations Hematologic/Lymphatic: Hematologic/Lymphatic: Denies easy bleeding Allergic/Immunologic: Allergic/Immunologic: Denies GI upset with certain foods Exam Narrative: Awake alert oriented appears stated age Const: General: comfortable and no acute distress HENMT: Face/Nose/Sinus: Normal nares present Mouth: Yes moist mucous membranes Eyes: General: appearance normal, both eyes and all related structures Sclera: sclerae normal Neck: Neck: supple and no JVD Carotids: no bruits Chest: Other: No reproducible chest wall pain to palpation Resp: Effort & Inspection: normal respiratory effort Auscultation: clear to auscultation bilaterally Cardio: Rate: regular rate Rhythm: regular rhythm Heart sounds: no murmurs GI: Inspection: non-distended Auscultation: normal bowel sounds Skin: General skin exam: normal color Neuro: Cranial nerves: Yes Normal hearing present Speech: normal speech and No Abnormal speech present Sensory Exam: normal sensation Extrem: General: normal to inspection Psych: Mental Status: mental status grossly normal Objective Data Vital Signs Vital Signs: Vital
[2023-03-13] MEDS: BELLADONNA ALK/PHENOB ELIX 10 ML, MAG HYDROX/ALUMINUM HYD/SIMETH 30 ML, LIDOCAINE HCL 2... PO (11:37)
[2023-03-13 12:39] LABS: Glucose Point of Care 137 mg/dl (65-105)
--- NOTE | 2023-03-13 13:35 | PM.PNNEP ---
Progress Note: A&P Assessment and Plan (1) End stage renal disease: Code(s): N18.6 - End stage renal disease Status: Chronic Assessment and Plan: continue CCPD tonight follow electrolytes, volume status, and clearance (2) Epigastric pain: Code(s): R10.13 - Epigastric pain Status: Acute Assessment and Plan: described as pain after eating GI cocktail helps when occurs -- PUD versus GERD versus something else GI consulted (3) Hypertension: Code(s): I10 - Essential (primary) hypertension Status: Chronic Assessment and Plan: quite elevated on presentation reasonable control now now with issues related to orthostasis - tenex discontinued follow trend of hemodynamics (4) Anemia: Code(s): D64.9 - Anemia, unspecified Status: Chronic Assessment and Plan: H/H at goal for ESRD follow trend of H/H start Epogen if Hgb drops below 10 (5) Diabetes mellitus: Code(s): E11.9 - Type 2 diabetes mellitus without complications Status: Chronic Assessment and Plan: follow accu-cheks glycemic controlper hospitalists Will continue to follow. Subjective Date/time seen: 03/13/23 13:35 Interval history: Follow-up for end stage renal disease on peritoneal dialysis. Tolerated peritoneal dialysis treatment last night without any issues or problems; epigastric pain occurred again after eating breakfast and lunch; both times the symptoms improved following GI cocktail. Exam Narrative: General: WD/WN male in NAD Heart: normal S1 and S2; no rub Lungs: clear to auscultation Abdomen: soft, nontender, nondistended, positive bowel sounds Extremities: no cyanosis or clubbing; no edema Skin: warm and dry Objective Data Vital Signs Vital Signs: Vital Signs Temp Pulse Resp BP Pulse Ox O2 Del Method 03/13/23 13:35 162/75 H 03/13/23 11:16 72 115/64 100 03/13/23 11:14 61 144/63 H 98 03/13/23 11:11 97.7 F 62 17 162/68 H 100 03/13/23 10:10 63 173/72 H 99 03/13/23 08:00 Room Air 03/13/23 09:02 56 L 03/13/23 05:15 98 F 59 L 18 146/56 H 99 03/12/23 22:15 172/82 H 03/12/23 20:40 Room Air 03/12/23 20:51 60 03/12/23 20:44 97.5 F L 60 16 166/75 H 98 03/12/23 17:40 Room Air 03/12/23 15:59 98.4 F 66 18 153/84 H 99 Intake/Output Intake/Output: Intake & Output 03/10/23 03/11/23 03/12/23 03/13/23 23:59 23:59 23:59 23:59 Intake Total 720 340 Output Total 150 2835 Balance 570 -2495 Meds/Results Medications: Active Medications Generic Name Dose Route Start Last Admin Trade Name Freq PRN Reason Stop Dose Admin Acetaminophen 650 mg 03/12/23 14:56 03/12/23 15:09 Acetaminophen 325 Mg Tablet PO 650 mg Q4H PRN Administration Pain 1-7 or Fever Hydrocodone Bitart/Acetaminophen 1 tab 03/12/23 14:58 Hydrocodone/Acetaminophen (*Crx) 5-325 Mg Tablet PO Q8H PRN pain 8-10 Aspirin 81 mg 03/12/23 09:15 03/13/23 08:25 Aspirin 81 Mg Enteric Tablet PO 81 mg DAILY JERMAINE Administration Atorvastatin Calcium 80 mg 03/12/23 21:00 03/12/23 20:46 Atorvastatin 40 Mg Tablet PO 80 mg HS JERMAINE Administration Calcium Carbonate 200 mg 03/13/23 10:24 03/13/23 10:39 Calcium Carbonate (Tums) 500 Mg (200 Mg Elemental) PO 200 mg Q6H PRN Administration Indigestion Carvedilol 25 mg 03/12/23 09:05 03/13/23 09:02 Carvedilol 25 Mg Tablet PO 25 mg Q12H JERMAINE Administration Dextrose 12.5 gm 03/12/23 08:02 Dextrose 50% 25 Gm/50 Ml Syringe IV PUSH PRN PRN Hypoglycemia Protocol Diltiazem HCl 240 mg 03/12/23 09:15 03/13/23 09:02 Diltiazem Hcl Cd 240 Mg Cap.24hr PO 240 mg DAILY JERMAINE Administration Furosemide 160 mg 03/12/23 09:15 03/13/23 09:02 Furosemide 80 Mg Tablet PO 160 mg DAILY@0900,1400 JERMAINE Administration Gluc
[2023-03-13] MEDS: hydrALAZINE HCL 20 MG/ML VIAL 10 MG IV PUSH (13:38)
[2023-03-13] MEDS: CHOLECALCIFEROL 1,000 UNITS TABLET 5000 UNITS PO (13:38)
[2023-03-13] MEDS: POTASSIUM CHLORIDE 10 MEQ ER TABLET PO (13:38)
[2023-03-13] MEDS: HYDROcodone/acetaminophen (*CRX) 5-325 MG TABLET 1 TAB PO ×2 (14:34→22:33)
[2023-03-13] MEDS: LORazepam (*CRX) 0.5 MG TABLET PO ×2 (15:46→23:48)
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
[2023-03-13 17:09] LABS: Glucose Point of Care 167 mg/dl (65-105)
[2023-03-13] MEDS: lisinopriL 20 MG TABLET PO (20:37)
[2023-03-13] MEDS: PANTOPRAZOLE 40 MG TABLET PO (20:37)
[2023-03-13] MEDS: traZODone HCL 50 MG TABLET 100 MG PO (21:35)
[2023-03-14] VITALS (8 sets, daily range): BP systolic 120–180; BP diastolic 52–98; PULSE 53–67; RESP 13–21; TEMP 36.2–36.6; O2SAT 98–100
[2023-03-14] MEDS: LEVOTHYROXINE SODIUM 112 MCG TABLET PO (05:36)
[2023-03-14 05:59] LABS: Basophils Percent Auto 0.3 % (0.2-1.2); Eosinophils Percent Auto 0.1 % (0-4.4); Hematocrit 34.3 % (42.0-52.0); Hemoglobin 11.1 g/dL (14.0-18.0); Immature Granulocyte Absolute 0.19 K/mm3 (0.00-0.031); Immature Granulocyte Percent A 2.6 % (0-0.5); Lymphocytes Absolute Auto 1.09 K/mm3 (0.9-3.2); Mean Corpuscular HGB Conc 32.4 g/dl (32-36); Mean Corpuscular Volume 98.8 fl (80-100); Mean Platelet Volume 10.5 fl (7.4-10.4); Monocytes Percent Auto 13.3 % (2.6-8.5); Neutrophils Percent Auto 68.7 % (45.5-73.1); Platelet Count Result 132 k/mm3 (150-375); Red Blood Count 3.47 M/mm3 (4.6-6.20); Red Cell Distribution Width 16.2 % (11.5-14.5); White Blood Count 7.3 K/mm3 (4.5-10.0)
[2023-03-14 06:27] LABS: Albumin Level 3.3 g/dL (3.5-5.1); Anion Gap 13 mmol/L (8-16); Blood Urea Nitrogen 43 mg/dL (9-20); Calcium 9.9 mg/dL (8.4-10.2); Carbon Dioxide 25 mmol/L (22-30); Chloride 98 mmol/L (98-107); Estimated CRCL calculation 9 ml/min; Estimated Glomerular Filt Rate 6; Glucose 145 mg/dL (65-110); Magnesium 2.9 mg/dL (1.6-2.3); Phosphorus 3.5 mg/dL (2.5-4.5); Potassium 3.2 mmol/L (3.4-5.0); Sodium 136 mmol/L (137-145)
[2023-03-14 06:59] LABS: Glucose Point of Care 157 mg/dl (65-105)
[2023-03-14 08:34] LABS: Glucose Point of Care 129 mg/dl (65-105)
[2023-03-14 12:28] LABS: Glucose Point of Care 89 mg/dl (65-105)
--- NOTE | 2023-03-14 12:42 | PC.NURSE ---
Patient off of unit to EGD
[2023-03-14 13:05] LABS: Glucose Point of Care 77 mg/dl (65-105)
[2023-03-14] MEDS: SODIUM CHLORIDE 0.9% IV 500 ML 10 ML IV CONT (13:07)
--- NOTE | 2023-03-14 13:17 | WPDANESEPPF ---
Anes - Initial Pre Proc Eval Procedure: Operation Date: 03/14/23 15:00 Proposed Procedures p Esophagogastroduodenoscopy - Jonatan Brown MD Date/Time: 03/14/23 13:17 Surgeon: Krystal Johnson DO Pre Op Diagnosis: Hypertensive Urgency, Chest Pain, Elevated Troponi Patient Data Age: 68 Gender: M Height: 1.73 m Weight: 104 kg Last Vital Signs Temp 97.8 F 03/14/23 07:45 Pulse 57 L 03/14/23 07:45 Resp 20 03/14/23 07:45 BP 148/54 H 03/14/23 07:45 Pulse Ox 98 03/14/23 07:45 O2 Del Method Room Air 03/14/23 09:42 Allergies Allergy/AdvReac Type Severity Reaction Status Date / Time oxycodone Allergy Hallucinati Verified 03/10/23 13:08 ng Home Medications Medication Instructions Recorded Confirmed Type blood-glucose meter (AdsNativeTouch #1 ea 12/23/18 03/12/23 Rx Ultra2 Meter) lancets 30 gauge (AdsNativeTouch Delica #100 ea 12/23/18 03/12/23 Rx Lancets) aspirin 81 mg tablet,delayed 81 mg PO DAILY 02/01/19 03/12/23 History release (Sami Low Dose Aspirin) vit C 250 mg-vit E 200 unit-zinc 1 tablet PO Q12H 02/01/19 03/12/23 History 12.5 mg-copper 1 bw-bap-nzacji tablet (ICaps AREDS2 (copper citrate)) blood sugar diagnostic (OneTouch 05/14/19 03/12/23 History Ultra Blue Test Strip) carvedilol 25 mg tablet (Coreg) 25 mg PO Q12H 09/06/19 03/12/23 History pen needle, diabetic 32 gauge x #200 ea 09/06/19 03/12/23 Rx 1/4 (BD Ultra-Fine Micro Pen Needle) diltiazem HCl 240 mg capsule,24 240 mg PO DAILY #90 caps 10/12/21 03/12/23 Rx hr,extended release insulin glargine 100 unit/mL (3 40 unit subcut Q12H 10/12/21 03/12/23 History mL) subcutaneous pen (Basaglar KwikPen U-100 Insulin) lisinopril 20 mg tablet 20 mg PO HS 08/12/22 03/12/23 History potassium chloride 10 mEq 10 meq PO 1400 08/12/22 03/12/23 History capsule,extended release atorvastatin 80 mg tablet 80 mg PO HS 10/01/22 03/12/23 History cholecalciferol (vitamin D3) 125 125 mcg PO 1400 10/01/22 03/12/23 History mcg (5,000 unit) tablet (Vitamin D3) folic acid 0.8 mg-vit B comp with 1 tablet PO DAILY 10/01/22 03/12/23 History G-qkhh-qffdhbo D3 2,000 unit tablet (Dialyvite 800-Ultra D) furosemide 80 mg tablet 160 mg PO 0900,1400 10/01/22 03/12/23 History insulin aspart U-100 100 unit/mL 30 unit subcut TIDWM 10/01/22 03/12/23 History (3 mL) subcutaneous pen (Novolog FlexPen U-100 Insulin aspart) tamsulosin 0.4 mg capsule 0.4 mg PO HS 10/01/22 03/12/23 History levothyroxine 112 mcg tablet 112 mcg PO DAILY #90 tabs 02/18/23 03/12/23 Rx lorazepam 0.5 mg tablet (Ativan) 0.5 mg PO BID PRN Anxiety #60 tabs 02/21/23 03/12/23 Rx guanfacine 3 mg tablet,extended 1.5 mg PO HS 03/10/23 03/12/23 History release 24 hr diphenhydramine 25 2 tablet PO HS 03/12/23 03/12/23 History mg-acetaminophen 500 mg tablet (Tylenol PM Extra Strength) hydrocodone 5 mg-acetaminophen 325 1 tablet PO Q8H PRN pain 03/12/23 03/12/23 History mg tablet pantoprazole 40 mg tablet,delayed 40 mg PO HS 03/12/23 03/12/23 History release sevelamer HCl 800 mg tablet 800 mg PO TIDWM 03/12/23 03/12/23 History Laboratory Tests 03/13/23 03/13/23 03/14/23 17:06 20:21 05:29 WBC 7.3 K/mm3 (4.5-10.0) RBC 3.47 L M/mm3 (4.6-6.20) Hgb 11.1 L g/dL (14.0-18.0) Hct 34.3 L % (42.0-52.0) MCV 98.8 fl (80-100) MCH 32.0 pg (26-34) MCHC 32.4 g/dl (32-36) RDW 16.2 H % (11.5-14.5) Plt Count 132 L k/mm3 (150-375) MPV 10.5 H fl (7.4-10.4) Immature Gran % (Auto) 2.6 H % (0-0.5) Neut % (Auto) 68.7 % (45.5-73.1) Lymph % (Auto) 15.0 L % (18.3-44.2) [place] % (Auto) 13.3 H % (2.6-8.5) Eos % (Auto) 0.1 % (0-4.4) Baso % (Auto) 0.3 % (0.2-1.2) Lymph # (Auto) 1.09 K/mm3 (0.9-3.2) [place] # (Auto) 1.0 H K/mm3
--- NOTE | 2023-03-14 13:24 | PCOTNOTE ---
Attempted to see pt for OT evaluation however pt is currently off the floor for an EGD. Will continue to follow.
[2023-03-14] MEDS: CHOLECALCIFEROL 1,000 UNITS TABLET 5000 UNITS PO (14:43)
[2023-03-14] MEDS: ACETAMINOPHEN 325 MG TABLET 650 MG PO ×3 (14:43→22:32)
[2023-03-14] MEDS: POTASSIUM CHLORIDE 10 MEQ ER TABLET PO (14:43)
[2023-03-14] MEDS: FUROSEMIDE 80 MG TABLET 160 MG PO (14:47)
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
--- NOTE | 2023-03-14 15:45 | P.PNNP_ITS ---
Progress Note: A&P Assessment and Plan (1) End stage renal disease: Code(s): N18.6 - End stage renal disease Status: Chronic Assessment and Plan: * continue CCPD tonight * follow electrolytes, volume status, and clearance (2) Epigastric pain: Code(s): R10.13 - Epigastric pain Status: Acute Assessment and Plan: * described as pain after eating * GI cocktail helps when occurs -- PUD versus GERD versus something else * GI following - s/p EGD (3) Hypertension: Code(s): I10 - Essential (primary) hypertension Status: Chronic Assessment and Plan: * quite elevated on presentation * reasonable control now * now with issues related to orthostasis - tenex and flomax discontinued * follow trend of hemodynamics (4) Anemia: Code(s): D64.9 - Anemia, unspecified Status: Chronic Assessment and Plan: * H/H at goal for ESRD * follow trend of H/H * start Epogen if Hgb drops below 10 (5) Diabetes mellitus: Code(s): E11.9 - Type 2 diabetes mellitus without complications Status: Chronic Assessment and Plan: * follow accu-cheks * glycemic controlper hospitalists Will continue to follow. Subjective Date/time seen: 03/14/23 15:45 Interval history: Follow-up for end stage renal disease on peritoneal dialysis. Tolerated peritoneal dialysis treatment overnight without any issues or problem s; s/p EGD earlier this afternoon with results/findings noted; still with some issues with dizziness with standing along with abdominal discomfort with eating; no other acute issues voiced at the time of my visit. Exam Narrative: General: WD/WN male in NAD Heart: normal S1 and S2; no rub Lungs: clear to auscultation Abdomen: soft, nontender, nondistended, positive bowel sounds Extremities: no cyanosis or clubbing; no edema Skin: warm and dry Objective Data Vital Signs Vital Signs: Vital Signs Temp Pulse Resp BP Pulse Ox O2 Del Method 03/14/23 14:48 97.2 F L 58 L 18 180/62 H 100 03/14/23 14:13 53 L 13 174/67 H 100 Room Air 03/14/23 14:03 55 L 14 151/67 H 100 Room Air 03/14/23 13:53 60 17 120/52 L 99 Room Air 03/14/23 07:45 97.8 F 57 L 20 148/54 H 03/14/23 07:45 97.8 F 57 L 20 148/54 H 98 Room Air 03/14/23 09:42 Room Air 03/14/23 06:00 97.8 F 57 L 20 148/54 H 98 03/13/23 21:38 100 Room Air 03/13/23 22:02 97.4 F L 61 21 H 159/58 H 100 03/13/23 21:15 Room Air 03/13/23 20:37 61 Intake/Output Intake/Output: Intake & Output 03/11/23 03/12/23 03/13/23 03/14/23 23:59 23:59 23:59 23:59 Intake Total 770 1420 1090 Output Total 150 6766 7221 Balance 300 -4586 -7825 Meds/Results Medications: Active Medications Generic Name Dose Route Start Last Admin Trade Name Freq PRN Reason Stop Dose Admin Acetaminophen 650 mg 03/12/23 14:56 03/14/23 14:43 Acetaminophen 325 Mg Tablet PO 650 mg Q4H PRN Administration Pain 1-7 or Fever Hydrocodone Bitart/Acetaminophen 1 tab 03/12/23 14:58 03/14/23 16:29 Hydrocodone/Acetaminophen (
--- NOTE | 2023-03-14 15:45 | PM.PNNEP ---
Progress Note: A&P Assessment and Plan (1) End stage renal disease: Code(s): N18.6 - End stage renal disease Status: Chronic Assessment and Plan: continue CCPD tonight follow electrolytes, volume status, and clearance (2) Epigastric pain: Code(s): R10.13 - Epigastric pain Status: Acute Assessment and Plan: described as pain after eating GI cocktail helps when occurs -- PUD versus GERD versus something else GI following - s/p EGD (3) Hypertension: Code(s): I10 - Essential (primary) hypertension Status: Chronic Assessment and Plan: quite elevated on presentation reasonable control now now with issues related to orthostasis - tenex and flomax discontinued follow trend of hemodynamics (4) Anemia: Code(s): D64.9 - Anemia, unspecified Status: Chronic Assessment and Plan: H/H at goal for ESRD follow trend of H/H start Epogen if Hgb drops below 10 (5) Diabetes mellitus: Code(s): E11.9 - Type 2 diabetes mellitus without complications Status: Chronic Assessment and Plan: follow accu-cheks glycemic controlper hospitalists Will continue to follow. Subjective Date/time seen: 03/14/23 15:45 Interval history: Follow-up for end stage renal disease on peritoneal dialysis. Tolerated peritoneal dialysis treatment overnight without any issues or problems; s/p EGD earlier this afternoon with results/findings noted; still with some issues with dizziness with standing along with abdominal discomfort with eating; no other acute issues voiced at the time of my visit. Exam Narrative: General: WD/WN male in NAD Heart: normal S1 and S2; no rub Lungs: clear to auscultation Abdomen: soft, nontender, nondistended, positive bowel sounds Extremities: no cyanosis or clubbing; no edema Skin: warm and dry Objective Data Vital Signs Vital Signs: Vital Signs Temp Pulse Resp BP Pulse Ox O2 Del Method 03/14/23 14:48 97.2 F L 58 L 18 180/62 H 100 03/14/23 14:13 53 L 13 174/67 H 100 Room Air 03/14/23 14:03 55 L 14 151/67 H 100 Room Air 03/14/23 13:53 60 17 120/52 L 99 Room Air 03/14/23 07:45 97.8 F 57 L 20 148/54 H 03/14/23 07:45 97.8 F 57 L 20 148/54 H 98 Room Air 03/14/23 09:42 Room Air 03/14/23 06:00 97.8 F 57 L 20 148/54 H 98 03/13/23 21:38 100 Room Air 03/13/23 22:02 97.4 F L 61 21 H 159/58 H 100 03/13/23 21:15 Room Air 03/13/23 20:37 61 Intake/Output Intake/Output: Intake & Output 03/11/23 03/12/23 03/13/23 03/14/23 23:59 23:59 23:59 23:59 Intake Total 770 1420 1090 Output Total 150 7201 8600 Balance 323 -2650 -3856 Meds/Results Medications: Active Medications Generic Name Dose Route Start Last Admin Trade Name Freq PRN Reason Stop Dose Admin Acetaminophen 650 mg 03/12/23 14:56 03/14/23 14:43 Acetaminophen 325 Mg Tablet PO 650 mg Q4H PRN Administration Pain 1-7 or Fever Hydrocodone Bitart/Acetaminophen 1 tab 03/12/23 14:58 03/14/23 16:29 Hydrocodone/Acetaminophen (*Crx) 5-325 Mg Tablet PO 1 tab Q8H PRN Administration pain 8-10 Aspirin 81 mg 03/15/23 09:00 Aspirin 81 Mg Enteric Tablet PO QAM JERMAINE Atorvastatin Calcium 80 mg 03/12/23 21:00 03/13/23 20:48 Atorvastatin 40 Mg Tablet PO Not Given HS JERMAINE Calcium Carbonate 200 mg 03/13/23 10:24 03/13/23 18:06 Calcium Carbonate (Tums) 500 Mg (200 Mg Elemental) PO 200 mg Q6H PRN Administration Indigestion Carvedilol 25 mg 03/12/23 09:05 03/14/23 08:57 Carvedilol 25 Mg Tablet PO Not Given Q12H JERMAINE Dextrose 12.5 gm 03/12/23 08:02 Dextrose 50% 25 Gm/50 Ml Syringe IV PUSH PRN PRN Hypoglycemia Protocol Diltiazem HCl 240 mg 03/12/23 09:15 03/14/23 08:57 Diltiazem Hcl Cd 240 Mg Cap.24hr PO Not Given DAILY JERMAINE Furosemide 160 mg 02/18
[2023-03-14] MEDS: HYDROcodone/acetaminophen (*CRX) 5-325 MG TABLET 1 TAB PO (16:29)
[2023-03-14] MEDS: SUCRALFATE 1 GM TABLET PO ×2 (16:29→21:09)
[2023-03-14 17:33] LABS: Glucose Point of Care 154 mg/dl (65-105)
[2023-03-14] MEDS: ATORVASTATIN 40 MG TABLET 80 MG PO (21:08)
[2023-03-14] MEDS: traZODone HCL 50 MG TABLET 100 MG PO (21:08)
[2023-03-14] MEDS: OPTI-GEN TAB 1 TABLET PO (21:09)
[2023-03-14] MEDS: carvediloL 25 MG TABLET PO (21:09)
[2023-03-14] MEDS: PANTOPRAZOLE 40 MG TABLET PO (21:09)
[2023-03-14] MEDS: lisinopriL 20 MG TABLET PO (21:09)
[2023-03-14] MEDS: LORazepam (*CRX) 0.5 MG TABLET PO (21:18)
[2023-03-14] MEDS: INSULIN GLARGINE (*BKC) 100 UNITS/ML 40 UNITS SUB-Q (22:32)
[2023-03-14] MEDS: INSULIN ASPART (*BKC) 100 UNITS/ML SUB-Q (22:33)
[2023-03-15] VITALS (15 sets, daily range): BP systolic 122–209; BP diastolic 61–89; PULSE 58–79; RESP 16–21; TEMP 36.3–36.5; O2SAT 98–100
[2023-03-15] MEDS: HYDROcodone/acetaminophen (*CRX) 5-325 MG TABLET 1 TAB PO ×2 (00:35→22:44)
[2023-03-15 03:52] LABS: Glucose Point of Care 201 mg/dl (65-105)
[2023-03-15] MEDS: LEVOTHYROXINE SODIUM 112 MCG TABLET PO (05:40)
[2023-03-15] MEDS: ACETAMINOPHEN 325 MG TABLET 650 MG PO ×2 (05:40→16:02)
[2023-03-15] MEDS: SUCRALFATE 1 GM TABLET PO ×3 (05:42→15:57)
[2023-03-15 08:51] LABS: Glucose Point of Care 154 mg/dl (65-105)
[2023-03-15] MEDS: dilTIAZem HCL CD 240 MG CAP.24HR PO (09:24)
[2023-03-15] MEDS: ASPIRIN 81 MG ENTERIC TABLET PO (09:25)
[2023-03-15] MEDS: HEPARIN SODIUM 5,000 UNITS/ML VIAL 5000 UNITS SUB-Q ×2 (09:25→19:50)
[2023-03-15] MEDS: OPTI-GEN TAB 1 TABLET PO (09:25)
[2023-03-15] MEDS: carvediloL 25 MG TABLET PO ×2 (09:28→19:44)
[2023-03-15] MEDS: FUROSEMIDE 80 MG TABLET 160 MG PO ×2 (10:10→12:51)
[2023-03-15] MEDS: INSULIN GLARGINE (*BKC) 100 UNITS/ML 40 UNITS SUB-Q ×2 (10:11→20:20)
[2023-03-15 10:15] LABS: Basophils Percent Auto 0.2 % (0.2-1.2); Hematocrit 40.4 % (42.0-52.0); Hemoglobin 12.7 g/dL (14.0-18.0); Immature Granulocyte Absolute 0.18 K/mm3 (0.00-0.031); Immature Granulocyte Percent A 2.1 % (0-0.5); Lymphocytes Absolute Auto 0.97 K/mm3 (0.9-3.2); Lymphocytes Percent Auto 11.3 % (18.3-44.2); Mean Corpuscular HGB Conc 31.4 g/dl (32-36); Mean Corpuscular Volume 101.8 fl (80-100); Mean Platelet Volume 10.6 fl (7.4-10.4); Monocytes Percent Auto 11.3 % (2.6-8.5); Neutrophils Absolute Auto 6.5 K/mm3 (1.3-6.7); Neutrophils Percent Auto 75.1 % (45.5-73.1); Platelet Count Result 174 k/mm3 (150-375); Red Blood Count 3.97 M/mm3 (4.6-6.20); Red Cell Distribution Width 17.2 % (11.5-14.5); White Blood Count 8.6 K/mm3 (4.5-10.0)
[2023-03-15 10:36] LABS: Albumin Level 4.2 g/dL (3.5-5.1); Anion Gap 13 mmol/L (8-16); Blood Urea Nitrogen 42 mg/dL (9-20); Carbon Dioxide 28 mmol/L (22-30); Chloride 97 mmol/L (98-107); Estimated CRCL calculation 7 ml/min; Estimated Glomerular Filt Rate 6; Glucose 189 mg/dL (65-110); Magnesium 2.8 mg/dL (1.6-2.3); Phosphorus 3.7 mg/dL (2.5-4.5); Sodium 138 mmol/L (137-145)
[2023-03-15] MEDS: CALCIUM CARBONATE (TUMS) 500 MG (200 MG ELEMENTAL) PO (11:22)
[2023-03-15 12:48] LABS: Glucose Point of Care 247 mg/dl (65-105)
[2023-03-15] MEDS: INSULIN ASPART (*BKC) 100 UNITS/ML SUB-Q (12:50)
[2023-03-15] MEDS: ONDANSETRON INJ 4 MG/2 ML VIAL IV PUSH ×2 (12:50→19:41)
[2023-03-15] MEDS: POTASSIUM CHLORIDE 10 MEQ ER TABLET PO (12:51)
[2023-03-15] MEDS: CHOLECALCIFEROL 1,000 UNITS TABLET 5000 UNITS PO (12:51)
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
[2023-03-15 16:53] LABS: Glucose Point of Care 193 mg/dl (65-105)
[2023-03-15] MEDS: PANTOPRAZOLE 40 MG TABLET PO (19:44)
[2023-03-15] MEDS: lisinopriL 20 MG TABLET PO (19:45)
[2023-03-15] MEDS: traZODone HCL 50 MG TABLET 100 MG PO (19:45)
--- NOTE | 2023-03-15 21:30 | PM.PNNEP ---
Progress Note: A&P Assessment and Plan (1) End stage renal disease: Code(s): N18.6 - End stage renal disease Status: Chronic Assessment and Plan: continue CCPD he had 2800cc off last night. his bp is better. will change to green yellow to get more fluid off. volume status looks okay (2) Epigastric pain: Code(s): R10.13 - Epigastric pain Status: Acute Assessment and Plan: described as pain after eating GI cocktail helps when occurs -- PUD versus GERD versus something else GI following - s/p EGD which was okay. colonoscopy done recently and was negative as well. (3) Hypertension: Code(s): I10 - Essential (primary) hypertension Status: Chronic Assessment and Plan: quite elevated on presentation it falls with standing (180 lying to 150 sitting to 120 standing) rBP still up and down, depending on the posture. currently on carvedilol 25 bid, dilt 240 daily, and lisinopril 20qhs he also had a lot of med changes. stopped sertraline, guanfacine, tamsulosin, and bp runs 159 to 138 to 126 or so per . (4) Anemia: Code(s): D64.9 - Anemia, unspecified Status: Chronic Assessment and Plan: H/H at goal for ESRD hb 12.7 (5) Diabetes mellitus: Code(s): E11.9 - Type 2 diabetes mellitus without complications Status: Chronic Assessment and Plan: follow accu-cheks glycemic control per hospitalists (6) Vertigo: Code(s): R42 - Dizziness and giddiness Status: Inactive Assessment and Plan: dizziness on lying on left side. I suggested to pt to see ENT. it sounds like an inner ear issue Subjective Date/time seen: 03/15/23 21:30 Interval history: alert. weak. dizzy on standing also dizzy if he lies on left side down. no problem if lying on back or right side down. Exam Narrative: General: WD/WN male in NAD Heart: normal S1 and S2; no rub or gallop Lungs: clear to auscultation Abdomen: soft, nontender, nondistended, positive bowel sounds Extremities: no cyanosis or clubbing; no edema Skin: no rasn Objective Data Vital Signs Vital Signs: Vital Signs - 24 hr 03/15/23 06:00 03/14/23 22:40 03/15/23 06:30 Temperature 97.4 F L 97.8 F 97.4 F L Pulse Rate 62 67 62 Respiratory Rate 21 H 21 H 20 Blood Pressure 166/86 H 159/98 H 166/86 H Pulse Oximetry 100 100 98 Oxygen Delivery 03/15/23 06:35 03/15/23 06:40 03/15/23 08:30 Temperature 97.4 F L 97.6 F 97.5 F L Pulse Rate 74 74 Respiratory Rate 21 H 21 H 18 Blood Pressure 141/89 H 122/68 Pulse Oximetry 100 100 100 Oxygen Delivery 03/15/23 08:30 03/15/23 08:51 03/15/23 09:05 Temperature Pulse Rate 70 75 Respiratory Rate Blood Pressure 175/75 H 130/61 209/89 H Pulse Oximetry Oxygen Delivery 03/15/23 09:28 03/15/23 10:53 03/15/23 14:08 Temperature Pulse Rate 64 63 Respiratory Rate Blood Pressure 159/77 H Pulse Oximetry Oxygen Delivery Room Air 03/15/23 14:09 03/15/23 14:10 03/15/23 07:50 Temperature 97.5 F L Pulse Rate 71 79 64 Respiratory Rate 18 Blood Pressure 138/71 126/72 209/89 H Pulse Oximetry 100 Oxygen Delivery Room Air 03/15/23 07:55 03/15/23 16:03 03/15/23 18:15 Temperature 97.5 F L 97.7 F Pulse Rate 64 65 Respiratory Rate 18 16 Blood Pressure 209/89 H Pulse Oximetry 100 Oxygen Delivery Room Air 03/15/23 08:00 Temperature Pulse Rate Respiratory Rate Blood Pressure Pulse Oximetry Oxygen Delivery Room Air Intake/Output Intake/Output: Intake & Output 03/12/23 03/13/23 03/14/23 03/15/23 23:59 23:59 23:59 23:59 Intake Total 770 1420 1090 1094 Output Total 150 9857 5489 [address] [place] [id number] -[phone] [id number] Meds/Results Medications: Active Medications Generic Name Dose Route Start Last Admin Trade Name Freq PRN Reason Stop Dose Admin Acetaminophen 650 mg 03/12/23 14:56 03/15/23 16:0
[2023-03-15] MEDS: hydrALAZINE HCL 20 MG/ML VIAL 10 MG IV PUSH (21:54)
[2023-03-15] MEDS: LORazepam (*CRX) 0.5 MG TABLET PO (21:58)
[2023-03-15 22:00] LABS: Glucose Point of Care 183 mg/dl (65-105)
[2023-03-16] VITALS (14 sets, daily range): BP systolic 102–169; BP diastolic 57–89; PULSE 57–87; RESP 16–21; TEMP 36.1–36.8; O2SAT 93–100
--- NOTE | 2023-03-16 01:00 | PC.NURSE ---
Patient refusing to take HS dose of Sucralfate stating it has made his stomach more upset than it was before. Pt educated on reason for taking the medication, and consequences of not taking the medication. Pt states understanding.
[2023-03-16] MEDS: ACETAMINOPHEN 325 MG TABLET 650 MG PO ×2 (01:21→13:20)
[2023-03-16] MEDS: diphenhydrAMINE HCl INJ 50 MG/ML VIAL 12.5 MG IV PUSH (02:39)
[2023-03-16] MEDS: METOCLOPRAMIDE HCL INJ 10 MG/2 ML VIAL IV PUSH (02:39)
[2023-03-16] MEDS: LEVOTHYROXINE SODIUM 112 MCG TABLET PO (05:55)
[2023-03-16 06:20] LABS: Basophils Percent Auto 0.4 % (0.2-1.2); Eosinophils Percent Auto 0.2 % (0-4.4); Hematocrit 38.4 % (42.0-52.0); Hemoglobin 12.5 g/dL (14.0-18.0); Immature Granulocyte Absolute 0.23 K/mm3 (0.00-0.031); Immature Granulocyte Percent A 2.8 % (0-0.5); Lymphocytes Absolute Auto 1.43 K/mm3 (0.9-3.2); Lymphocytes Percent Auto 17.6 % (18.3-44.2); Mean Corpuscular HGB Conc 32.6 g/dl (32-36); Mean Corpuscular Hemoglobin 32.2 pg (26-34); Mean Platelet Volume 11.1 fl (7.4-10.4); Monocytes Absolute Auto 1.2 K/mm3 (0.1-0.6); Monocytes Percent Auto 14.6 % (2.6-8.5); Neutrophils Absolute Auto 5.2 K/mm3 (1.3-6.7); Neutrophils Percent Auto 64.4 % (45.5-73.1); Platelet Count Result 166 k/mm3 (150-375); Red Blood Count 3.88 M/mm3 (4.6-6.20); Red Cell Distribution Width 16.9 % (11.5-14.5); White Blood Count 8.1 K/mm3 (4.5-10.0)
[2023-03-16 06:27] LABS: Albumin Level 3.9 g/dL (3.5-5.1); Anion Gap 12 mmol/L (8-16); Blood Urea Nitrogen 38 mg/dL (9-20); Calcium 10.2 mg/dL (8.4-10.2); Carbon Dioxide 28 mmol/L (22-30); Chloride 99 mmol/L (98-107); Estimated CRCL calculation 9 ml/min; Estimated Glomerular Filt Rate 6; Glucose 158 mg/dL (65-110); Magnesium 2.7 mg/dL (1.6-2.3); Phosphorus 3.8 mg/dL (2.5-4.5); Potassium 3.9 mmol/L (3.4-5.0); Sodium 139 mmol/L (137-145)
[2023-03-16 08:48] LABS: Glucose Point of Care 131 mg/dl (65-105)
[2023-03-16] MEDS: OPTI-GEN TAB 1 TABLET PO (09:40)
[2023-03-16] MEDS: carvediloL 25 MG TABLET PO ×2 (09:40→20:19)
[2023-03-16] MEDS: FUROSEMIDE 80 MG TABLET 160 MG PO ×2 (09:42→13:20)
[2023-03-16] MEDS: ASPIRIN 81 MG ENTERIC TABLET PO (09:42)
[2023-03-16] MEDS: HEPARIN SODIUM 5,000 UNITS/ML VIAL 5000 UNITS SUB-Q ×2 (09:42→20:20)
[2023-03-16] MEDS: INSULIN GLARGINE (*BKC) 100 UNITS/ML 40 UNITS SUB-Q ×2 (09:43→20:19)
[2023-03-16] MEDS: dilTIAZem HCL CD 240 MG CAP.24HR PO (09:44)
[2023-03-16] MEDS: CALCIUM CARBONATE (TUMS) 500 MG (200 MG ELEMENTAL) PO ×2 (10:02→20:19)
[2023-03-16 11:46] LABS: Glucose Point of Care 226 mg/dl (65-105)
[2023-03-16] MEDS: POTASSIUM CHLORIDE 10 MEQ ER TABLET PO (13:20)
[2023-03-16] MEDS: CHOLECALCIFEROL 1,000 UNITS TABLET 5000 UNITS PO (13:21)
[2023-03-16] MEDS: INSULIN ASPART (*BKC) 100 UNITS/ML SUB-Q (13:22)
--- NOTE | 2023-03-16 13:42 | PM.PNNEP ---
Progress Note: A&P Assessment and Plan (1) End stage renal disease: Code(s): N18.6 - End stage renal disease Status: Chronic Assessment and Plan: continue CCPD he had 1869cc off last night. less fluid off as planned. Blood pressure looks okay volume status looks okay electrolytes look okay as well (2) Epigastric pain: Code(s): R10.13 - Epigastric pain Status: Acute Assessment and Plan: described as pain after eating GI cocktail helps when occurs -- PUD versus GERD versus something else GI following - s/p EGD which was okay. colonoscopy done recently and was negative as well. (3) Hypertension: Code(s): I10 - Essential (primary) hypertension Status: Chronic Assessment and Plan: quite elevated on presentation this has improved. He had quite an orthostatic drop as well. This is better with stopping his sertraline, using Dale hose, and an abdominal binder. I do not think he needs midodrine at this point. (4) Anemia: Code(s): D64.9 - Anemia, unspecified Status: Chronic Assessment and Plan: H/H at goal for ESRD hb 12.5 (5) Diabetes mellitus: Code(s): E11.9 - Type 2 diabetes mellitus without complications Status: Chronic Assessment and Plan: follow accu-cheks glycemic control per hospitalists (6) Vertigo: Code(s): R42 - Dizziness and giddiness Status: Inactive Assessment and Plan: dizziness on lying on left side. I suggested to pt to see ENT for a possible inner ear issue Subjective Date/time seen: 03/16/23 13:42 Interval history: Patient did not sleep at all last night. Blood pressure is better on standing. Still a little dizzy. He has got visual problems which have been going on for a long time. He was going to see the eye doctor for this to fix a cataract and also to do laser surgery however with all his health problems in the last few months he has not been able to get in there. Exam Narrative: General: WD/WN male in NAD Heart: normal S1 and S2; no rub or gallop Lungs: clear bilaterally Abdomen: soft, nontender, nondistended, positive bowel sounds Extremities: no cyanosis or clubbing; no edema Skin: no rash Or subcu nodules Objective Data Vital Signs Vital Signs: Vital Signs - 24 hr 03/15/23 14:08 03/15/23 14:09 03/15/23 14:10 Temperature Pulse Rate 63 71 79 Respiratory Rate Blood Pressure 159/77 H 138/71 126/72 Pulse Oximetry Oxygen Delivery 03/15/23 16:03 03/15/23 18:15 03/16/23 00:03 Temperature 97.7 F Pulse Rate 65 Respiratory Rate 16 Blood Pressure 169/70 H Pulse Oximetry 100 Oxygen Delivery Room Air 03/16/23 06:00 03/16/23 06:00 03/15/23 22:20 Temperature 97.0 F L 97.0 F L 97.6 F Pulse Rate 57 L 57 L 58 L Respiratory Rate 18 18 21 H Blood Pressure 152/59 H 152/59 H 192/86 H Pulse Oximetry 96 96 100 Oxygen Delivery 03/16/23 06:05 03/16/23 06:10 03/16/23 09:40 Temperature 97.8 F 97.7 F 98.1 F Pulse Rate 67 71 81 Respiratory Rate 21 H 20 16 Blood Pressure 130/68 131/57 L 144/73 H Pulse Oximetry 100 98 100 Oxygen Delivery 03/16/23 09:40 03/16/23 08:00 Temperature Pulse Rate 81 Respiratory Rate Blood Pressure Pulse Oximetry Oxygen Delivery Room Air Intake/Output Intake/Output: Intake & Output 03/13/23 03/14/23 03/15/23 03/16/23 23:59 23:59 23:59 23:59 Intake Total 1420 1090 1094 600 Output Total [address] [facility] -1815 -1595 -1641 -1269 Meds/Results Medications: Active Medications Generic Name Dose Route Start Last Admin Trade Name Freq PRN Reason Stop Dose Admin Acetaminophen 650 mg 03/12/23 14:56 03/16/23 13:20 Acetaminophen 325 Mg Tablet PO 650 mg Q4H PRN Administration Pain 1-7 or Fever Hydrocodone Bitart/Acetaminophen 1 tab 03/12/23 14:58 03/15/23 22:44 Hydrocodone/Acetaminophen (*Cr
[2023-03-16] MEDS: SENNA/DOCUSATE SODIUM TABLET 1 TAB PO ×2 (14:15→17:17)
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
[2023-03-16 16:39] LABS: Glucose Point of Care 110 mg/dl (65-105)
[2023-03-16] MEDS: ACETAMINOPHEN 500 MG TABLET 1000 MG PO (18:11)
[2023-03-16] MEDS: traZODone HCL 50 MG TABLET 100 MG PO (20:19)
[2023-03-16] MEDS: lisinopriL 20 MG TABLET PO (20:19)
[2023-03-16] MEDS: PANTOPRAZOLE 40 MG TABLET PO (20:19)
[2023-03-16] MEDS: HYDROcodone/acetaminophen (*CRX) 5-325 MG TABLET 1 TAB PO (20:29)
[2023-03-16 21:19] LABS: Glucose Point of Care 197 mg/dl (65-105)
[2023-03-17] VITALS (10 sets, daily range): BP systolic 124–196; BP diastolic 66–103; PULSE 58–79; RESP 17–18; TEMP 36.1–37; O2SAT 98–100
[2023-03-17] MEDS: LEVOTHYROXINE SODIUM 112 MCG TABLET PO (05:45)
[2023-03-17 06:02] LABS: Basophils Percent Auto 0.2 % (0.2-1.2); Eosinophils Percent Auto 0.2 % (0-4.4); Hematocrit 39.6 % (42.0-52.0); Hemoglobin 12.7 g/dL (14.0-18.0); Immature Granulocyte Absolute 0.24 K/mm3 (0.00-0.031); Immature Granulocyte Percent A 2.7 % (0-0.5); Lymphocytes Percent Auto 15.5 % (18.3-44.2); Mean Corpuscular HGB Conc 32.1 g/dl (32-36); Mean Corpuscular Hemoglobin 32.2 pg (26-34); Mean Corpuscular Volume 100.5 fl (80-100); Monocytes Absolute Auto 1.3 K/mm3 (0.1-0.6); Monocytes Percent Auto 14.5 % (2.6-8.5); Neutrophils Percent Auto 66.9 % (45.5-73.1); Platelet Count Result 158 k/mm3 (150-375); Red Blood Count 3.94 M/mm3 (4.6-6.20); Red Cell Distribution Width 17.1 % (11.5-14.5)
[2023-03-17 06:17] LABS: Albumin Level 3.8 g/dL (3.5-5.1); Anion Gap 16 mmol/L (8-16); Blood Urea Nitrogen 41 mg/dL (9-20); Calcium 10.2 mg/dL (8.4-10.2); Carbon Dioxide 25 mmol/L (22-30); Chloride 98 mmol/L (98-107); Estimated CRCL calculation 9 ml/min; Estimated Glomerular Filt Rate 6; Glucose 134 mg/dL (65-110); Magnesium 2.7 mg/dL (1.6-2.3); Potassium 3.4 mmol/L (3.4-5.0); Sodium 139 mmol/L (137-145)
[2023-03-17 09:17] LABS: Glucose Point of Care 175 mg/dl (65-105)
[2023-03-17] MEDS: OPTI-GEN TAB 1 TABLET PO ×2 (09:36→21:04)
[2023-03-17] MEDS: HEPARIN SODIUM 5,000 UNITS/ML VIAL 5000 UNITS SUB-Q ×2 (09:36→21:05)
[2023-03-17] MEDS: ASPIRIN 81 MG ENTERIC TABLET PO (09:36)
[2023-03-17] MEDS: SENNA/DOCUSATE SODIUM TABLET 1 TAB PO ×2 (09:36→17:11)
[2023-03-17] MEDS: FUROSEMIDE 80 MG TABLET 160 MG PO ×2 (09:36→12:56)
[2023-03-17] MEDS: dilTIAZem HCL CD 240 MG CAP.24HR PO (09:37)
[2023-03-17] MEDS: INSULIN GLARGINE (*BKC) 100 UNITS/ML 40 UNITS SUB-Q (09:37)
[2023-03-17] MEDS: carvediloL 25 MG TABLET PO ×2 (09:40→21:04)
[2023-03-17] MEDS: ACETAMINOPHEN 500 MG TABLET 1000 MG PO (09:45)
[2023-03-17] MEDS: CALCIUM CARBONATE (TUMS) 500 MG (200 MG ELEMENTAL) PO (11:40)
[2023-03-17 11:43] LABS: Folic Acid 19.2 ng/mL (2.76->20)
[2023-03-17 12:37] LABS: Glucose Point of Care 173 mg/dl (65-105)
--- NOTE | 2023-03-17 12:48 | PM.PNNEP ---
Progress Note: A&P Assessment and Plan (1) End stage renal disease: Code(s): N18.6 - End stage renal disease Status: Chronic Assessment and Plan: continue nightly CCPD follow electrolytes, volume status, and clearance (2) Epigastric pain: Code(s): R10.13 - Epigastric pain Status: Acute Assessment and Plan: etiology still not clear described as pain after eating GI cocktail helps when occurs -- PUD versus GERD versus something else? GI following - s/p EGD which was okay colonoscopy done recently and was negative as well (3) Hypertension: Code(s): I10 - Essential (primary) hypertension Status: Chronic Assessment and Plan: quite elevated on presentation better at this time positive orthostasis -- better of sertraline and use of wendy hose + abdominal binder follow trend of hemodynamics (4) Anemia: Code(s): D64.9 - Anemia, unspecified Status: Chronic Assessment and Plan: H/H at goal for ESRD no need for Epogen at this time (5) Diabetes mellitus: Code(s): E11.9 - Type 2 diabetes mellitus without complications Status: Chronic Assessment and Plan: follow accu-cheks glycemic control per hospitalists Will continue to follow. Subjective Date/time seen: 03/17/23 12:48 Interval history: Follow-up for end stage renal disease on peritoneal dialysis. Tolerated peritoneal dialysis treatment last night without any issues or problems; continues to complain of persistent nausea and abdominal discomfort as well persistent dizziness while lying down and standing up; at bedside and we discussed the situation. Exam Narrative: General: WD/WN male in NAD Heart: normal S1 and S2; no rub or gallop Lungs: clear bilaterally Abdomen: soft, nontender, nondistended, positive bowel sounds Extremities: no cyanosis or clubbing; no edema Skin: warm and dry Objective Data Vital Signs Vital Signs: Vital Signs Temp Pulse Resp BP Pulse Ox 03/17/23 09:40 67 03/17/23 08:17 124/66 03/17/23 08:17 169/88 H 03/17/23 08:00 196/88 H 03/17/23 08:00 97.0 F L 67 18 100 03/17/23 06:40 97.9 F 58 L 17 177/84 H 03/17/23 04:10 97.9 F 58 L 17 177/84 H 98 03/16/23 23:35 98.3 F 62 18 143/72 H 100 03/16/23 19:58 98.3 F 87 18 129/68 98 03/16/23 19:54 98.3 F 84 18 124/75 100 03/16/23 19:51 98.3 F 67 18 165/89 H 93 Intake/Output Intake/Output: Intake & Output 03/14/23 03/15/23 03/16/23 03/17/23 23:59 23:59 23:59 23:59 Intake Total 1090 1094 900 690 Output Total 8484 6254 1869 1660 [facility] -1595 -1641 -969 [phone] Meds/Results Medications: Active Medications Generic Name Dose Route Start Last Admin Trade Name Freq PRN Reason Stop Dose Admin Acetaminophen 1,000 mg 03/16/23 14:18 03/17/23 09:45 Acetaminophen 500 Mg Tablet PO 1,000 mg Q6H PRN Administration Mild Pain (1-7) or fever Hydrocodone Bitart/Acetaminophen 1 tab 03/12/23 14:58 03/17/23 12:53 Hydrocodone/Acetaminophen (*Crx) 5-325 Mg Tablet PO 1 tab Q8H PRN Administration pain 8-10 Atorvastatin Calcium 80 mg 03/12/23 21:00 03/16/23 20:21 Atorvastatin 40 Mg Tablet PO Not Given HS JERMAINE Calcium Carbonate 200 mg 03/13/23 10:24 03/17/23 11:40 Calcium Carbonate (Tums) 500 Mg (200 Mg Elemental) PO 200 mg Q6H PRN Administration Indigestion Carvedilol 25 mg 03/12/23 09:05 03/17/23 09:40 Carvedilol 25 Mg Tablet PO 25 mg Q12H JERMAINE Administration Dextrose 12.5 gm 03/12/23 08:02 Dextrose 50% 25 Gm/50 Ml Syringe IV PUSH PRN PRN Hypoglycemia Protocol Diltiazem HCl 240 mg 03/12/23 09:15 03/17/23 09:37 Diltiazem Hcl Cd 240 Mg Cap.24hr PO 240 mg DAILY JERMAINE Administration Fluticasone Propionate 2 spray 03/17/23 21:00 Fluticasone Propionate 0.05% Na Spr 16 Gm Btl (*Bkc) NASAL Q12HR
[2023-03-17] MEDS: POTASSIUM CHLORIDE 10 MEQ ER TABLET PO (12:53)
[2023-03-17] MEDS: HYDROcodone/acetaminophen (*CRX) 5-325 MG TABLET 1 TAB PO ×2 (12:53→21:05)
[2023-03-17] MEDS: CHOLECALCIFEROL 1,000 UNITS TABLET 5000 UNITS PO (12:54)
[2023-03-17] MEDS: BISACODYL 10 MG SUPPOSITORY RECTAL (14:18)
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
[2023-03-17 16:48] LABS: Glucose Point of Care 115 mg/dl (65-105)
[2023-03-17] MEDS: LACTULOSE 20 GM/30 ML UDC PO (17:10)
[2023-03-17] MEDS: LORATADINE 10 MG TABLET PO (17:11)
[2023-03-17] MEDS: ATORVASTATIN 40 MG TABLET 80 MG PO (21:04)
[2023-03-17] MEDS: PANTOPRAZOLE 40 MG TABLET PO (21:04)
[2023-03-17] MEDS: lisinopriL 20 MG TABLET PO (21:05)
[2023-03-17] MEDS: LORazepam (*CRX) 0.5 MG TABLET PO (21:05)
[2023-03-17] MEDS: FLUTICASONE PROPIONATE 0.05% NA SPR 16 GM BTL (*BKC) 2 SPRAY NASAL (21:05)
[2023-03-17] MEDS: traZODone HCL 50 MG TABLET 100 MG PO (21:05)
[2023-03-17] MEDS: ONDANSETRON INJ 4 MG/2 ML VIAL IV PUSH (21:15)
[2023-03-18] VITALS (8 sets, daily range): BP systolic 94–192; BP diastolic 59–87; PULSE 20–88; RESP 18; TEMP 36.5–37.1; O2SAT 98–100
[2023-03-18 00:38] LABS: Glucose Point of Care 109 mg/dl (65-105)
[2023-03-18] MEDS: LEVOTHYROXINE SODIUM 112 MCG TABLET PO (05:25)
[2023-03-18 08:16] LABS: Basophils Percent Auto 0.2 % (0.2-1.2); Eosinophils Percent Auto 0.1 % (0-4.4); Hematocrit 39.8 % (42.0-52.0); Hemoglobin 12.9 g/dL (14.0-18.0); Immature Granulocyte Absolute 0.22 K/mm3 (0.00-0.031); Immature Granulocyte Percent A 2.2 % (0-0.5); Lymphocytes Percent Auto 14.1 % (18.3-44.2); Mean Corpuscular HGB Conc 32.4 g/dl (32-36); Mean Corpuscular Volume 98.8 fl (80-100); Mean Platelet Volume 11.1 fl (7.4-10.4); Monocytes Absolute Auto 1.4 K/mm3 (0.1-0.6); Monocytes Percent Auto 14.4 % (2.6-8.5); Neutrophils Absolute Auto 6.8 K/mm3 (1.3-6.7); Platelet Count Result 165 k/mm3 (150-375); Red Blood Count 4.03 M/mm3 (4.6-6.20); White Blood Count 9.9 K/mm3 (4.5-10.0)
[2023-03-18 08:29] LABS: Albumin Level 3.9 g/dL (3.5-5.1); Anion Gap 14 mmol/L (8-16); Blood Urea Nitrogen 44 mg/dL (9-20); Calcium 10.3 mg/dL (8.4-10.2); Carbon Dioxide 27 mmol/L (22-30); Chloride 97 mmol/L (98-107); Estimated CRCL calculation 8 ml/min; Estimated Glomerular Filt Rate 5; Glucose 118 mg/dL (65-110); Magnesium 2.7 mg/dL (1.6-2.3); Phosphorus 6.1 mg/dL (2.5-4.5); Potassium 3.8 mmol/L (3.4-5.0); Sodium 138 mmol/L (137-145)
[2023-03-18 08:30] LABS: Glucose Point of Care 119 mg/dl (65-105)
[2023-03-18] MEDS: SEVELAMER CARBONATE 800 MG TABLET PO ×3 (08:32→17:29)
[2023-03-18] MEDS: LORATADINE 10 MG TABLET PO (08:32)
[2023-03-18] MEDS: dilTIAZem HCL CD 240 MG CAP.24HR PO (08:32)
[2023-03-18] MEDS: OPTI-GEN TAB 1 TABLET PO ×2 (08:32→20:48)
[2023-03-18] MEDS: carvediloL 25 MG TABLET PO ×2 (08:33→20:48)
[2023-03-18] MEDS: INSULIN GLARGINE (*BKC) 100 UNITS/ML 40 UNITS SUB-Q ×2 (08:33→20:50)
[2023-03-18] MEDS: HEPARIN SODIUM 5,000 UNITS/ML VIAL 5000 UNITS SUB-Q ×2 (08:34→20:48)
--- NOTE | 2023-03-18 11:15 | PM.PNNEP ---
Progress Note: A&P Assessment and Plan (1) End stage renal disease: Code(s): N18.6 - End stage renal disease Status: Chronic Assessment and Plan: continue nightly CCPD follow electrolytes, volume status, and clearance (2) Epigastric pain: Code(s): R10.13 - Epigastric pain Status: Acute Assessment and Plan: etiology still not clear described as pain after eating GI cocktail helps when occurs -- PUD versus GERD versus something else? GI following - s/p EGD which was okay colonoscopy done recently and was negative as well clinically better at this time (3) Hypertension: Code(s): I10 - Essential (primary) hypertension Status: Chronic Assessment and Plan: quite elevated on presentation better at this time positive orthostasis -- better off sertraline and use of wendy hose + abdominal binder follow trend of hemodynamics (4) Anemia: Code(s): D64.9 - Anemia, unspecified Status: Chronic Assessment and Plan: H/H at goal for ESRD no need for Epogen at this time (5) Diabetes mellitus: Code(s): E11.9 - Type 2 diabetes mellitus without complications Status: Chronic Assessment and Plan: follow accu-cheks glycemic control per hospitalists Will continue to follow. Subjective Date/time seen: 03/18/23 11:15 Interval history: Follow-up for end stage renal disease on peritoneal dialysis. Abdominal pain and dizziness seems to be doing a bit better; PD treatment overnight continue to be tolerated reasonably well; no other acute complaints voiced on my visit. Exam Narrative: General: WD/WN male in NAD Heart: normal S1 and S2; no rub Lungs: clear bilaterally Abdomen: soft, nontender, nondistended, positive bowel sounds Extremities: no cyanosis or clubbing; no edema Skin: warm and intact Objective Data Vital Signs Vital Signs: Vital Signs Temp Pulse Resp BP Pulse Ox O2 Del Method 03/18/23 11:01 192/87 H 03/18/23 08:33 20 L 03/18/23 05:16 98.7 F 69 18 155/81 H 100 03/17/23 20:00 Room Air 03/17/23 21:04 70 03/17/23 20:07 79 128/85 03/17/23 20:05 98.6 F 70 18 169/103 H 99 03/17/23 19:00 98.4 F 61 18 157/87 H 100 Room Air Intake/Output Intake/Output: Intake & Output 03/15/23 03/16/23 03/17/23 03/18/23 23:59 23:59 23:59 23:59 Intake Total 1449 461 3129 1280 Output Total 2735 1869 1660 737 Balance -0291 -969 -220 543 Meds/Results Medications: Active Medications Generic Name Dose Route Start Last Admin Trade Name Freq PRN Reason Stop Dose Admin Acetaminophen 1,000 mg 03/16/23 14:18 03/17/23 09:45 Acetaminophen 500 Mg Tablet PO 1,000 mg Q6H PRN Administration Mild Pain (1-7) or fever Hydrocodone Bitart/Acetaminophen 1 tab 03/12/23 14:58 03/17/23 21:05 Hydrocodone/Acetaminophen (*Crx) 5-325 Mg Tablet PO 1 tab Q8H PRN Administration pain 8-10 Atorvastatin Calcium 80 mg 03/12/23 21:00 03/17/23 21:04 Atorvastatin 40 Mg Tablet PO 80 mg HS JERMAINE Administration Calcium Carbonate 200 mg 03/13/23 10:24 03/17/23 11:40 Calcium Carbonate (Tums) 500 Mg (200 Mg Elemental) PO 200 mg Q6H PRN Administration Indigestion Carvedilol 25 mg 03/12/23 09:05 03/18/23 08:33 Carvedilol 25 Mg Tablet PO 25 mg Q12H JERMAINE Administration Dextrose 12.5 gm 03/12/23 08:02 Dextrose 50% 25 Gm/50 Ml Syringe IV PUSH PRN PRN Hypoglycemia Protocol Diltiazem HCl 240 mg 03/12/23 09:15 03/18/23 08:32 Diltiazem Hcl Cd 240 Mg Cap.24hr PO 240 mg DAILY JERMAINE Administration Fluticasone Propionate 2 spray 03/17/23 21:00 03/18/23 13:04 Fluticasone Propionate 0.05% Na Spr 16 Gm Btl (*Bkc) NASAL 2 spray Q12HR JERMAINE Administration Glucagon 1 mg 03/12/23 08:02 Glucagon For Inj 1 Mg Vial IM PRN PRN Hypoglycemia Protocol Glucose 15 g
--- NOTE | 2023-03-18 11:15 | P.PNNP_ITS ---
Progress Note: A&P Assessment and Plan (1) End stage renal disease: Code(s): N18.6 - End stage renal disease Status: Chronic Assessment and Plan: * continue nightly CCPD * follow electrolytes, volume status, and clearance (2) Epigastric pain: Code(s): R10.13 - Epigastric pain Status: Acute Assessment and Plan: * etiology still not clear * described as pain after eating * GI cocktail helps when occurs -- PUD versus GERD versus something else? * GI following - s/p EGD which was okay * colonoscopy done recently and was negative as well * clinically better at this time (3) Hypertension: Code(s): I10 - Essential (primary) hypertension Status: Chronic Assessment and Plan: * quite elevated on presentation * better at this time * positive orthostasis -- better off sertraline and use of wendy hose + abdominal binder * follow trend of hemodynamics (4) Anemia: Code(s): D64.9 - Anemia, unspecified Status: Chronic Assessment and Plan: * H/H at goal for ESRD * no need for Epogen at this time (5) Diabetes mellitus: Code(s): E11.9 - Type 2 diabetes mellitus without complications Status: Chronic Assessment and Plan: * follow accu-cheks * glycemic control per hospitalists Will continue to follow. Subjective Date/time seen: 03/18/23 11:15 Interval history: Follow-up for end stage renal disease on peritoneal dialysis. Abdominal pain and dizziness seems to be doing a bit better; PD treatment overnight continue to be tolerated reasonably well; no other acute complaints voiced on my visit. Exam Narrative: General: WD/WN male in NAD Heart: normal S1 and S2; no rub Lungs: clear bilaterally Abdomen: soft, nontender, nondistended, positive bowel sounds Extremities: no cyanosis or clubbing; no edema Skin: warm and intact Objective Data Vital Signs Vital Signs: Vital Signs Temp Pulse Resp BP Pulse Ox O2 Del Method 03/18/23 11:01 192/87 H 03/18/23 08:33 20 L 03/18/23 05:16 98.7 F 69 18 155/81 H 100 03/17/23 20:00 Room Air 03/17/23 21:04 70 03/17/23 20:07 79 128/85 03/17/23 20:05 98.6 F 70 18 169/103 H 99 03/17/23 19:00 98.4 F 61 18 157/87 H 100 Room Air Intake/Output Intake/Output: Intake & Output 03/15/23 03/16/23 03/17/23 03/18/23 23:59 23:59 23:59 23:59 Intake Total 8250 065 7758 1280 Output Total 9989 7739 1660 737 [facility] -1211 -969 -220 543 Meds/Results Medications: Active Medications Generic Name Dose Route Start Last Admin Trade Name Freq PRN Reason Stop Dose Admin Acetaminophen 1,000 mg 03/16/23 14:18 03/17/23 09:45 Acetaminophen 500 Mg Tablet PO 1,000 mg Q6H PRN Administration Mild Pain (1-7) or fever Hydrocodone Bitart/Acetaminophen 1 tab 03/12/23 14:58 03/17/23 21:05 Hydrocodone/Acetaminophen (*Crx) 5-325 Mg Tablet PO 1 tab Q8H PRN Administration pain 8-10 Atorvastatin Calcium 80 mg 03/12/23 21:00 03/17/23 21:04 Atorvastatin 40 Mg Tablet PO 80 mg HS [facility] Administ
[2023-03-18 11:26] LABS: Glucose Point of Care 149 mg/dl (65-105)
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
[2023-03-18] MEDS: POTASSIUM CHLORIDE 10 MEQ ER TABLET PO (13:04)
[2023-03-18] MEDS: FLUTICASONE PROPIONATE 0.05% NA SPR 16 GM BTL (*BKC) 2 SPRAY NASAL ×2 (13:04→20:48)
[2023-03-18] MEDS: CHOLECALCIFEROL 1,000 UNITS TABLET 5000 UNITS PO (13:04)
--- NOTE | 2023-03-18 14:28 | PM.PNCARD ---
Progress Note: A&P Assessment and Plan (1) Orthostatic hypotension: Code(s): I95.1 - Orthostatic hypotension Status: Inactive Assessment and Plan: He has developed significant, symptomatic orthostatic hypotension with supine hypertension, limiting and complicating management the orthostasis. Orthostasis did improve with use compression stockings and abdominal binder. However, his supine systolic blood pressure has been unacceptably high (180-190 mmHg). Discussed with patient and at the bedside that this is a difficult balance and we may need to accept a slightly higher supine systolic blood pressure than we would if he did not have orthostatic hypotension. Reinforced the importance consistent use the abdominal binder and compression stockings. I also encouraged him to sit upright during the day as much as possible and avoid lying in bed supine for extended periods of time during the day. I am going to add low-dose hydralazine at nighttime and observe how tolerates this. (2) Hypertensive urgency: Code(s): I16.0 - Hypertensive urgency Status: Acute Assessment and Plan: Improved. Continue carvedilol, diltiazem, guanfacine, lisinopril. (3) Elevated troponin: Code(s): R79.89 - Other specified abnormal findings of blood chemistry Status: Acute Assessment and Plan: Elevated troponins are not related ACS. They are chronically elevated without significant rise or fall. There from a combination of severe hypertension as well as renal disease (4) End-stage renal disease on peritoneal dialysis: Code(s): N18.6 - End stage renal disease; Z99.2 - Dependence on renal dialysis Status: Acute Assessment and Plan: On peritoneal dialysis followed at [facility] (5) CAD (coronary artery disease): Code(s): I25.10 - Atherosclerotic heart disease of [place] coronary artery without angina pectoris Status: Acute Assessment and Plan: Reportedly had a stress test at [facility] last fall which was reportedly unremarkable. Will request records. His epigastric pain does not sound anginal. His worsened with food and while postprandial angina is a possibility, the fact that his symptoms improved with a GI cocktail would indicate a GI etiology. Continue PPI. Echocardiogram reviewed (6) Epigastric pain: Code(s): R10.13 - Epigastric pain Status: Acute Assessment and Plan: As detailed above. Will repeat a stat EKG now. I once again recommend GI evaluation as his symptoms predominantly occur after eating food, possible duodenal ulcer. Will give a GI cocktail Subjective Date/time seen: 03/18/23 14:28 Interval history: 68-year-old admitted because of hypertensive urgency Date of service 03/13/2023: Was doing fine until he ate breakfast. Since then he has been complaining of epigastric pain as well as dizziness. No shortness of date of service 03/18/2023: Cardiology was asked to re-evaluate this patient because of orthostatic hypotension and supine hypertension. Review of Systems Review of Systems: All systems reviewed & are unremarkable except as noted in HPI and below Constitutional: Constitutional: Denies body ache(s) and Denies excessive sweating Eyes: Eyes: Denies blurry vision ENT: Reports Normal hearing present Cardiovascular: Cardiovascular: Reports chest pain, Denies leg edema, Denies palpitations and Denies dyspnea on exertion Respiratory: Respiratory: Denies dyspnea on exertion Gastrointestinal: Gastrointestinal: Reports abdominal pain Genitourinary: Genitourinary: Denies hematuria Musculoskeletal: Musculoskeletal: Reports arthralgias Integumentary/Breasts: Skin/Breast: Denies erythema Neurologic: Reports Normal hearing present and Denies Abnormal speech present Psychiatric: Psychiatric: Denies anxiety Endocrine: Endocrine: Denies excessive sweating and Denies palpitations Hematologic/Lymphatic
[2023-03-18 17:05] LABS: Glucose Point of Care 232 mg/dl (65-105)
[2023-03-18] MEDS: INSULIN ASPART (*BKC) 100 UNITS/ML SUB-Q ×2 (17:29→20:49)
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
[2023-03-18] MEDS: ATORVASTATIN 40 MG TABLET 80 MG PO (20:48)
[2023-03-18] MEDS: PANTOPRAZOLE 40 MG TABLET PO (20:48)
[2023-03-18] MEDS: lisinopriL 20 MG TABLET PO (20:48)
[2023-03-18] MEDS: hydrALAZINE 10 MG TABLET PO (20:49)
[2023-03-18 23:16] LABS: Glucose Point of Care 216 mg/dl (65-105)
[2023-03-19] VITALS (13 sets, daily range): BP systolic 95–176; BP diastolic 60–85; PULSE 64–85; RESP 18–20; TEMP 36.3–37.5; O2SAT 100
[2023-03-19] MEDS: LEVOTHYROXINE SODIUM 112 MCG TABLET PO (05:29)
[2023-03-19 06:02] LABS: Basophils Percent Auto 0.2 % (0.2-1.2); Eosinophils Percent Auto 0.2 % (0-4.4); Hematocrit 41.6 % (42.0-52.0); Immature Granulocyte Absolute 0.21 K/mm3 (0.00-0.031); Immature Granulocyte Percent A 1.6 % (0-0.5); Lymphocytes Absolute Auto 1.22 K/mm3 (0.9-3.2); Lymphocytes Percent Auto 9.4 % (18.3-44.2); Mean Corpuscular HGB Conc 31.3 g/dl (32-36); Mean Corpuscular Hemoglobin 31.6 pg (26-34); Monocytes Absolute Auto 1.7 K/mm3 (0.1-0.6); Monocytes Percent Auto 13.4 % (2.6-8.5); Neutrophils Absolute Auto 9.7 K/mm3 (1.3-6.7); Neutrophils Percent Auto 75.2 % (45.5-73.1); Platelet Count Result 171 k/mm3 (150-375); Red Blood Count 4.12 M/mm3 (4.6-6.20); Red Cell Distribution Width 16.8 % (11.5-14.5); White Blood Count 12.9 K/mm3 (4.5-10.0)
[2023-03-19 06:24] LABS: Albumin Level 3.8 g/dL (3.5-5.1); Anion Gap 14 mmol/L (8-16); Blood Urea Nitrogen 46 mg/dL (9-20); Calcium 10.2 mg/dL (8.4-10.2); Carbon Dioxide 26 mmol/L (22-30); Chloride 96 mmol/L (98-107); Estimated CRCL calculation 8 ml/min; Estimated Glomerular Filt Rate 5; Glucose 160 mg/dL (65-110); Magnesium 2.6 mg/dL (1.6-2.3); Phosphorus 5.8 mg/dL (2.5-4.5); Potassium 3.7 mmol/L (3.4-5.0); Sodium 136 mmol/L (137-145)
[2023-03-19 08:22] LABS: Glucose Point of Care 149 mg/dl (65-105)
--- NOTE | 2023-03-19 09:20 | PCOTNOTE ---
Attempted to see Patient at this time. Patient refused services at this time, stated he feels horrible right now. Patient's present and verbalized, they did a medication change and I feel it did mix well with him . Will attempt again at a later time.
[2023-03-19] MEDS: SENNA/DOCUSATE SODIUM TABLET 1 TAB PO ×2 (09:26→18:01)
[2023-03-19] MEDS: LORATADINE 10 MG TABLET PO (09:27)
[2023-03-19] MEDS: HEPARIN SODIUM 5,000 UNITS/ML VIAL 5000 UNITS SUB-Q (09:27)
[2023-03-19] MEDS: OPTI-GEN TAB 1 TABLET PO ×2 (09:27→20:09)
[2023-03-19] MEDS: SEVELAMER CARBONATE 800 MG TABLET PO ×3 (09:27→18:01)
[2023-03-19] MEDS: dilTIAZem HCL CD 240 MG CAP.24HR PO (09:28)
[2023-03-19] MEDS: FLUTICASONE PROPIONATE 0.05% NA SPR 16 GM BTL (*BKC) 2 SPRAY NASAL ×2 (09:28→20:10)
[2023-03-19] MEDS: carvediloL 25 MG TABLET PO ×2 (09:28→20:09)
[2023-03-19] MEDS: INSULIN GLARGINE (*BKC) 100 UNITS/ML 40 UNITS SUB-Q ×2 (09:31→20:19)
[2023-03-19] MEDS: CALCIUM CARBONATE (TUMS) 500 MG (200 MG ELEMENTAL) PO (10:04)
[2023-03-19] MEDS: ACETAMINOPHEN 500 MG TABLET 1000 MG PO (10:04)
[2023-03-19 12:01] LABS: Glucose Point of Care 107 mg/dl (65-105)
[2023-03-19] MEDS: POTASSIUM CHLORIDE 10 MEQ ER TABLET PO (12:56)
[2023-03-19] MEDS: CHOLECALCIFEROL 1,000 UNITS TABLET 5000 UNITS PO (12:56)
--- NOTE | 2023-03-19 13:48 | P.PNNP_ITS ---
Progress Note: A&P Assessment and Plan (1) End stage renal disease: Code(s): N18.6 - End stage renal disease Status: Chronic Assessment and Plan: * continue nightly CCPD * follow electrolytes, volume status, and clearance (2) Epigastric pain: Code(s): R10.13 - Epigastric pain Status: Acute Assessment and Plan: * etiology still not clear * described as pain after eating * GI cocktail helps when occurs -- PUD versus GERD versus something else? * GI following - s/p EGD which was okay * colonoscopy done recently and was negative as well * clinically better at this time (3) Hypertension: Code(s): I10 - Essential (primary) hypertension Status: Chronic Assessment and Plan: * quite elevated on presentation * better at this time * positive orthostasis -- better off sertraline and use of wendy hose + abdominal binder * follow trend of hemodynamics (4) Anemia: Code(s): D64.9 - Anemia, unspecified Status: Chronic Assessment and Plan: * H/H at goal/ supratherapeutic for ESRD * no need for Epogen at this time (5) Diabetes mellitus: Code(s): E11.9 - Type 2 diabetes mellitus without complications Status: Chronic Assessment and Plan: * follow accu-cheks * glycemic control per hospitalists Will continue to follow. Subjective Date/time seen: 03/19/23 13:48 Interval history: Follow-up for end stage renal disease on peritoneal dialysis. Still having issues with orthostasis although from what nursing tells me, he has not been completely compliant with use of the abdominal binder; tolerated CCPD treatment overnight without any issues or problems. Exam Narrative: General: WD/WN male in NAD Heart: normal S1 and S2; no rub Lungs: clear bilaterally Abdomen: soft, nontender, nondistended, positive bowel sounds Extremities: no cyanosis or clubbing; no edema Skin: no rash Objective Data Vital Signs Vital Signs: Vital Signs Temp Pulse Resp BP Pulse Ox O2 Del Method 03/19/23 13:13 95/60 L 03/19/23 13:13 127/80 03/19/23 13:12 137/82 03/19/23 08:00 Room Air 03/19/23 08:53 97.3 F L 72 18 162/78 H 03/19/23 09:28 72 03/19/23 05:49 97.3 F L 64 18 162/78 H 100 03/18/23 22:20 Room Air 03/18/23 21:00 Room Air 03/18/23 20:48 88 03/18/23 20:37 145/64 H 03/18/23 20:31 153/73 H 03/18/23 20:28 97.7 F 66 18 146/62 H 98 Intake/Output Intake/Output: Intake & Output 03/16/23 03/17/23 03/18/23 03/19/23 23:59 23:59 23:59 23:59 Intake Total 900 1440 1280 490 Output Total 1869 3921 394 3920 [place] -116 -227 551 -0504 Meds/Results Medications: Active Medications Generic Name Dose Route Start Last Admin Trade Name Freq PRN Reason Stop Dose Admin Acetaminophen 1,000 mg 03/16/23 14:18 03/19/23 10:04 Acetaminophen 500 Mg Tablet PO 1,000 mg Q6H PRN Administration Mild Pain (1-7) or fever Hydrocodone Bitart/Acetaminophen 1 tab 03/12/23 14:58 03/17/23 21:05 Hydrocodone/Acetaminophen (*Crx
--- NOTE | 2023-03-19 13:48 | PM.PNNEP ---
Progress Note: A&P Assessment and Plan (1) End stage renal disease: Code(s): N18.6 - End stage renal disease Status: Chronic Assessment and Plan: continue nightly CCPD follow electrolytes, volume status, and clearance (2) Epigastric pain: Code(s): R10.13 - Epigastric pain Status: Acute Assessment and Plan: etiology still not clear described as pain after eating GI cocktail helps when occurs -- PUD versus GERD versus something else? GI following - s/p EGD which was okay colonoscopy done recently and was negative as well clinically better at this time (3) Hypertension: Code(s): I10 - Essential (primary) hypertension Status: Chronic Assessment and Plan: quite elevated on presentation better at this time positive orthostasis -- better off sertraline and use of wendy hose + abdominal binder follow trend of hemodynamics (4) Anemia: Code(s): D64.9 - Anemia, unspecified Status: Chronic Assessment and Plan: H/H at goal/ supratherapeutic for ESRD no need for Epogen at this time (5) Diabetes mellitus: Code(s): E11.9 - Type 2 diabetes mellitus without complications Status: Chronic Assessment and Plan: follow accu-cheks glycemic control per hospitalists Will continue to follow. Subjective Date/time seen: 03/19/23 13:48 Interval history: Follow-up for end stage renal disease on peritoneal dialysis. Still having issues with orthostasis although from what nursing tells me, he has not been completely compliant with use of the abdominal binder; tolerated CCPD treatment overnight without any issues or problems. Exam Narrative: General: WD/WN male in NAD Heart: normal S1 and S2; no rub Lungs: clear bilaterally Abdomen: soft, nontender, nondistended, positive bowel sounds Extremities: no cyanosis or clubbing; no edema Skin: no rash Objective Data Vital Signs Vital Signs: Vital Signs Temp Pulse Resp BP Pulse Ox O2 Del Method 03/19/23 13:13 95/60 L 03/19/23 13:13 127/80 03/19/23 13:12 137/82 03/19/23 08:00 Room Air 03/19/23 08:53 97.3 F L 72 18 162/78 H 03/19/23 09:28 72 03/19/23 05:49 97.3 F L 64 18 162/78 H 100 03/18/23 22:20 Room Air 03/18/23 21:00 Room Air 03/18/23 20:48 88 03/18/23 20:37 145/64 H 03/18/23 20:31 153/73 H 03/18/23 20:28 97.7 F 66 18 146/62 H 98 Intake/Output Intake/Output: Intake & Output 03/16/23 03/17/23 03/18/23 03/19/23 23:59 23:59 23:59 23:59 Intake Total 900 1440 1280 490 Output Total 1869 9315 201 7199 Balance -969 220 159 -7004 Meds/Results Medications: Active Medications Generic Name Dose Route Start Last Admin Trade Name Freq PRN Reason Stop Dose Admin Acetaminophen 1,000 mg 03/16/23 14:18 03/19/23 10:04 Acetaminophen 500 Mg Tablet PO 1,000 mg Q6H PRN Administration Mild Pain (1-7) or fever Hydrocodone Bitart/Acetaminophen 1 tab 03/12/23 14:58 03/17/23 21:05 Hydrocodone/Acetaminophen (*Crx) 5-325 Mg Tablet PO 1 tab Q8H PRN Administration pain 8-10 Atorvastatin Calcium 80 mg 03/12/23 21:00 03/18/23 20:48 Atorvastatin 40 Mg Tablet PO 80 mg HS JERMAINE Administration Calcium Carbonate 200 mg 03/13/23 10:24 03/19/23 10:04 Calcium Carbonate (Tums) 500 Mg (200 Mg Elemental) PO 200 mg Q6H PRN Administration Indigestion Carvedilol 25 mg 03/12/23 09:05 03/19/23 09:28 Carvedilol 25 Mg Tablet PO 25 mg Q12H JERMAINE Administration Dextrose 12.5 gm 03/12/23 08:02 Dextrose 50% 25 Gm/50 Ml Syringe IV PUSH PRN PRN Hypoglycemia Protocol Diltiazem HCl 240 mg 03/12/23 09:15 03/19/23 09:28 Diltiazem Hcl Cd 240 Mg Cap.24hr PO 240 mg DAILY JERMAINE Administration Fluticasone Propionate 2 spray 03/17/23 21:00 03/19/23 09:28 Fluticasone Propionate 0.05% Na Spr
[2023-03-19] MEDS: traMADol HCL (*CRX) 25 MG TABLET PO (15:54)
--- NOTE | 2023-03-19 16:46 | ECG_ITS ---
Measurements Intervals [place] Rate: 68 P: 73 [place]: 145 QRS: -79 QRSD: 99 T: 55 QT: 411 QTc: 438 Interpretive Statements SINUS RHYTHM INCOMPLETE RIGHT BUNDLE BRANCH BLOCK LEFT ANTERIOR FASCICULAR BLOCK NONSPECIFIC ST-T WAVE ABNORMALITY- INF/LAT LEADS ABNORMAL ECG COMPARED TO ECG 03/13/2023 11:52:36 SINUS RHYTHM NOW PRESENT INCOMPLETE RIGHT BUNDLE-BRANCH BLOCK NOW PRESENT Electronically Signed On 03-19-2023 21:13:16 SR VICE PRESIDENT by Dilan Preciado D.O.
--- NOTE | 2023-03-19 16:48 | PM.IMPN ---
Progress Note: A&P Assessment and Plan (1) Hypertension: Code(s): I10 - Essential (primary) hypertension Status: Chronic Assessment and Plan: - has been difficult to control even before admission. He presented taking Lasix 160 mg twice per day, guanfacine 1.5 mg q.h.s., diltiazem 240 mg q.day, Coreg 25 mg b.i.d., lisinopril 20 mg q.h.s., tamsulosin 0.4 mg q.h.s. - 03/15 tamsulosin and going for the scene have since been discontinued. He presents a complicated situation as he is on multiple antihypertensives and simply discontinuing them is ill-advised since his supine SBP is over 200 at times. However, after starting thigh-high Dale hose and abdominal binder his orthostatic blood pressures are supine 159/77 sitting 138/71 and standing 126/72. These are positive but by and large greatly improved, previously there was a 70 mmHg difference between supine and standing systolic pressure. We will continue this treatment and monitor him. He does have dizziness associated with this change in blood pressure. If he again worsens a cardiology consult is appropriate. -on 03/16 the patient's orthostatic blood pressure is greatly improved and his supine blood pressure. We will keep the same management, however the patient still complains of the exact same dizziness when he is lying down and standing up. However he has not been wearing the abdominal binder. I talked the and the patient how to place the abdominal binder and recommended that he wear it especially when he is sitting up and standing and walking. -on 03/17 discussed possible options left with Nephrology. Decision made to discontinue furosemide to hopefully keep is volume up. Tomorrow we will have an MRA of the abdomen done to evaluate his abdominal pain as well as to rule out renal artery stenosis. Again reiterated the patient should be wearing the abdominal binder he has been refusing to due to abdominal discomfort. We have good evidence that the abdominal binder greatly improved his orthostatic hypotension. Have instituted elevation of head therapy and he can also have snack at night or heat pad to help reduce blood pressure while sleeping/laying. Follows fails we could try to institute nitroglycerin transdermal or short-acting antihypertensives while he is lying down but the safer option would be that he does not lay flat for too long. On 03/18 the patient has slightly improved symptomatology with less of a headache and less dizziness. We will continue p.r.n. Tylenol and tramadol and also continue daily Zyrtec and b.i.d. Flonase nasal spray. He is wearing his abdominal binder more. He states that he would not be able to sleep sitting up or avoid being supine altogether at home therefore with the supine SBP of 180-190 we will consult Cardiology again. They have added hydralazine 10 mg p.o. q.h.s.. Regarding his abdominal discomfort it seems to have improved. MRA of the abdomen without and with contrast demonstrating a 2.7 cm enhancing mass in the left kidney upper pole consistent with renal cell carcinoma. Abdomen CT without and with contrast is recommended but a discussion with Nephrology and the patient 1st will be prudent given he does have some urine output left. As well, he reports he did have a biopsy and that is an old lesion so we will attempt to obtain records from [facility] to confirm this. 03/19 -he again has severe orthostasis today. Supine BP 176/85 and standing 95/60. He has been noncompliant with abdominal binder. As aformentioned we have objective evidence of improvement with this therapy. The delta on systolic blood pressure during orthostatic vitals is 70-80 with out the abdominal binder and only 20-30 with the abdominal binder. I have encouraged him to use it. Will continue to appreciate Cardiology recommendations. (2) Orthostatic hypotension: Code(s): I95.1 - Orthostatic hypotension Status: Inactive Assessment and Plan: -
[2023-03-19 17:43] LABS: Troponin I 0.214 ng/mL (0.000-0.034)
[2023-03-19 18:05] LABS: Glucose Point of Care 218 mg/dl (65-105)
--- NOTE | 2023-03-19 18:07 | PC.NURSE ---
Pt refusing nitro at this time. Education provided on the need and purpose of medication. Pt is still hyper-fixated on the medication given at bedtime last night. States that no one cares about him. This nurse has given multiple talks this shift regarding being at the hospital and our protocols. MD informed of refusal.
[2023-03-19] MEDS: INSULIN ASPART (*BKC) 100 UNITS/ML SUB-Q ×2 (18:39→20:19)
[2023-03-19 19:05] LABS: Basophils Percent Auto 0.2 % (0.2-1.2); Eosinophils Percent Auto 0.1 % (0-4.4); Hematocrit 39.6 % (42.0-52.0); Hemoglobin 12.5 g/dL (14.0-18.0); Immature Granulocyte Absolute 0.17 K/mm3 (0.00-0.031); Immature Granulocyte Percent A 1.3 % (0-0.5); Lymphocytes Percent Auto 7.6 % (18.3-44.2); Mean Corpuscular HGB Conc 31.6 g/dl (32-36); Mean Corpuscular Hemoglobin 32.1 pg (26-34); Mean Corpuscular Volume 101.8 fl (80-100); Monocytes Absolute Auto 1.8 K/mm3 (0.1-0.6); Monocytes Percent Auto 13.3 % (2.6-8.5); Neutrophils Absolute Auto 10.2 K/mm3 (1.3-6.7); Neutrophils Percent Auto 77.5 % (45.5-73.1); Platelet Count Result 159 k/mm3 (150-375); Red Blood Count 3.89 M/mm3 (4.6-6.20); Red Cell Distribution Width 16.7 % (11.5-14.5); White Blood Count 13.2 K/mm3 (4.5-10.0)
[2023-03-19 19:18] LABS: Prothrombin Time 13.2 Seconds (11.1-14.7)
[2023-03-19] MEDS: ASPIRIN 325 MG TABLET PO (20:08)
[2023-03-19] MEDS: PANTOPRAZOLE 40 MG TABLET PO (20:08)
[2023-03-19] MEDS: ATORVASTATIN 40 MG TABLET 80 MG PO (20:09)
[2023-03-19] MEDS: NITROGLYCERIN SL 0.4 MG TABLET SUBLINGUAL (20:09)
[2023-03-19] MEDS: HYDROcodone/acetaminophen (*CRX) 5-325 MG TABLET 1 TAB PO (20:09)
[2023-03-19] MEDS: lisinopriL 20 MG TABLET PO (20:09)
[2023-03-19] MEDS: HEPARIN SOD/D5W 100 UNITS/ML 25,000 UNITS/250 ML BAG 10 UNITS IV CONT (20:14)
[2023-03-19 20:34] LABS: Glucose Point of Care 292 mg/dl (65-105)
[2023-03-19] MEDS: traZODone HCL 50 MG TABLET 100 MG PO (21:38)
[2023-03-20] VITALS (15 sets, daily range): BP systolic 95–176; BP diastolic 52–96; PULSE 62–75; RESP 18–20; TEMP 36.4–37.2; O2SAT 97–99
--- NOTE | 2023-03-20 03:02 | PC.NURSE ---
Phlebotomy unsuccessful in obtaining bloodwork. produce department supervisor came to bedside and made one attempt, pt now refusing any further attempts to draw blood.
[2023-03-20] MEDS: LEVOTHYROXINE SODIUM 112 MCG TABLET PO (06:06)
[2023-03-20 06:41] LABS: Basophils Percent Auto 0.2 % (0.2-1.2); Eosinophils Percent Auto 0.1 % (0-4.4); Hematocrit 40.3 % (42.0-52.0); Hemoglobin 12.9 g/dL (14.0-18.0); Immature Granulocyte Absolute 0.18 K/mm3 (0.00-0.031); Immature Granulocyte Percent A 1.6 % (0-0.5); Immature Platelet Fraction Pct 6.6 % (0.9-11.2); Lymphocytes Absolute Auto 0.87 K/mm3 (0.9-3.2); Lymphocytes Percent Auto 7.8 % (18.3-44.2); Mean Corpuscular Hemoglobin 32.2 pg (26-34); Mean Corpuscular Volume 100.5 fl (80-100); Mean Platelet Volume 11.8 fl (7.4-10.4); Monocytes Absolute Auto 1.7 K/mm3 (0.1-0.6); Monocytes Percent Auto 15.1 % (2.6-8.5); Neutrophils Absolute Auto 8.4 K/mm3 (1.3-6.7); Neutrophils Percent Auto 75.2 % (45.5-73.1); Platelet Count Result 142 k/mm3 (150-375); Red Blood Count 4.01 M/mm3 (4.6-6.20); Red Cell Distribution Width 16.6 % (11.5-14.5); White Blood Count 11.2 K/mm3 (4.5-10.0)
[2023-03-20 06:52] LABS: Partial Thromboplastin Time 24.5 SECONDS (22.3-36.8)
[2023-03-20 07:19] LABS: Albumin Level 3.6 g/dL (3.5-5.1); Anion Gap 15 mmol/L (8-16); Blood Urea Nitrogen 44 mg/dL (9-20); Calcium 10.2 mg/dL (8.4-10.2); Carbon Dioxide 26 mmol/L (22-30); Chloride 96 mmol/L (98-107); Estimated CRCL calculation 7 ml/min; Estimated Glomerular Filt Rate 5; Glucose 124 mg/dL (65-110); Magnesium 2.4 mg/dL (1.6-2.3); Phosphorus 5.8 mg/dL (2.5-4.5); Potassium 4.1 mmol/L (3.4-5.0); Sodium 137 mmol/L (137-145)
[2023-03-20 07:35] LABS: Procalcitonin 0.8 ng/mL
[2023-03-20 07:51] LABS: Platelet Estimate Adequate (Adequate); Schistocytes None Seen (NORMAL)
[2023-03-20] MEDS: HEPARIN SODIUM 5,000 UNITS/ML VIAL 4000 UNITS IV PUSH ×2 (08:13→23:57)
[2023-03-20 08:44] LABS: Glucose Point of Care 154 mg/dl (65-105)
--- NOTE | 2023-03-20 09:31 | ECG_ITS ---
Measurements Intervals [place] Rate: 72 P: 82 [place]: 140 QRS: -73 QRSD: 98 T: 97 QT: 437 QTc: 479 Interpretive Statements SINUS RHYTHM LEFT ANTERIOR FASCICULAR BLOCK [QRS AXIS <= -45, QR IN I, RS IN II] NONSPECIFIC T-WAVE ABNORMALITY PROLONGED QT INTERVAL COMPARED TO ECG 03/19/2023 18:07:36 NO SIGNIFICANT CHANGES Electronically Signed On 03-20-2023 14:00:20 CHARGER OPERATOR by Truong Hendricks M.D.
--- NOTE | 2023-03-20 09:38 | PM.PNCARD ---
Progress Note: A&P Assessment and Plan (1) Chest pain: Code(s): R07.9 - Chest pain, unspecified Status: Acute Assessment and Plan: Patient reported chest pain yesterday to hospitalist. Troponin level was drawn and resulted at 0.214. Therefore, patient was placed on heparin drip. Upon my evaluation of the patient this morning he is free from any chest pain. Patient states that the pain he experienced yesterday is not new, he has been experiencing this pain for a while. Patient states that the pain generally occurs after eating. It is mostly mid epigastric pain that spreads down to the abdomen. He rated the pain at a 6/10. Again, currently not experiencing any pain. However, his pain did resolve last night with administration of nitroglycerin. Troponins were unable to be trended last night because inability to obtain blood samples (apparently patient is a very difficult stick). We will re-attempt to draw another troponin level with morning to ensure that the troponins trend down. I offered the option of repeating a nuclear stress test to evaluate for any ischemia. Patient declines stress test at this time because he ?does not think it will show anything. ? I think this is reasonable given recent negative stress test and coronary angiogram findings from 2020 detailed below. I do not think his chest pain is anginal. Heparin drip can be discontinued. Will check another EKG now. He does not need to be kept NPO for any further cardiac testing at this point. Patient and at the bedside are in agreement with this plan. (2) Orthostatic hypotension: Code(s): I95.1 - Orthostatic hypotension Status: Inactive Assessment and Plan: He has developed significant, symptomatic orthostatic hypotension with supine hypertension, limiting and complicating management the orthostasis. Orthostasis did improve with use compression stockings and abdominal binder. However, his supine systolic blood pressure has been unacceptably high (180-190 mmHg). Discussed with patient and at the bedside that this is a difficult balance and we may need to accept a slightly higher supine systolic blood pressure than we would if he did not have orthostatic hypotension. Reinforced the importance consistent use the abdominal binder and compression stockings. I also encouraged him to sit upright during the day as much as possible and avoid lying in bed supine for extended periods of time during the day. I did add low-dose hydralazine at nighttime, the patient has been refusing because he did not feel well the day after taking the nighttime hydralazine earlier in the week. I explained that I did not think that 1 dose of hydralazine would have had any effect on how he was feeling the next morning given the short half-life. He is still experiencing significant dizziness with postural changes. (3) Hypertensive urgency: Code(s): I16.0 - Hypertensive urgency Status: Acute Assessment and Plan: Improved. Continue carvedilol, diltiazem, guanfacine, lisinopril. (4) Elevated troponin: Code(s): R79.89 - Other specified abnormal findings of blood chemistry Status: Acute Assessment and Plan: Elevated troponins are not related ACS. They are chronically elevated without significant rise or fall. There from a combination of severe hypertension as well as renal disease (5) End-stage renal disease on peritoneal dialysis: Code(s): N18.6 - End stage renal disease; Z99.2 - Dependence on renal dialysis Status: Acute Assessment and Plan: On peritoneal dialysis followed at [facility] (6) CAD (coronary artery disease): Code(s): I25.10 - Atherosclerotic heart disease of [place] coronary artery without angina pectoris Status: Acute Assessment and Plan: Patient had a cardiac catheterization performed at [facility] in July 2020. He was found to a 70% lesion in the mid LAD that was stented he with TI
--- NOTE | 2023-03-20 09:44 | PCPTNOTE ---
Attempted to see patient for PT, however patient declined. Patient reported he has not been able to eat for 2 days and does not feel well, and does not feel well enough to do therapy.
[2023-03-20] MEDS: traMADol HCL (*CRX) 25 MG TABLET PO ×2 (10:18→18:38)
[2023-03-20] MEDS: FLUTICASONE PROPIONATE 0.05% NA SPR 16 GM BTL (*BKC) 2 SPRAY NASAL ×2 (10:19→21:25)
[2023-03-20] MEDS: dilTIAZem HCL CD 240 MG CAP.24HR PO (10:19)
[2023-03-20] MEDS: OPTI-GEN TAB 1 TABLET PO ×2 (10:19→21:25)
[2023-03-20] MEDS: LORATADINE 10 MG TABLET PO (10:19)
[2023-03-20] MEDS: SENNA/DOCUSATE SODIUM TABLET 1 TAB PO (10:19)
--- NOTE | 2023-03-20 10:25 | PM.IMPN ---
Progress Note: A&P Assessment and Plan (1) Hypertension: Code(s): I10 - Essential (primary) hypertension Status: Chronic (2) Cirrhosis: Code(s): K74.60 - Unspecified cirrhosis of liver Status: Acute (3) Anemia: Code(s): D64.9 - Anemia, unspecified Status: Chronic (4) End stage renal disease: Code(s): N18.6 - End stage renal disease Status: Chronic Plan 68-year-old male with history of renal failure on peritoneal dialysis, prior kidney cancer, SHABNAM, insulin-dependent diabetes, anxiety, hypercholesterolemia, hypothyroidism, anemia, GERD, diastolic heart failure, unspecified cirrhosis, hypertension presents with elevated blood pressure and epigastric pain. (1) Hypertension: ?Code(s): I10 - Essential (primary) hypertension ?Status:?Chronic ?Assessment and Plan: - has been difficult to control even before admission.? He presented taking Lasix 160 mg twice per day, guanfacine 1.5 mg q.h.s., diltiazem 240 mg q.day, Coreg 25 mg b.i.d., lisinopril 20 mg q.h.s., tamsulosin 0.4 mg q.h.s. - 03/15 tamsulosin and going for the scene have since been discontinued.? He presents a complicated situation as he is on multiple antihypertensives and simply discontinuing them is ill-advised since his supine SBP is over 200 at times.? However, after starting thigh-high [place] hose and abdominal binder his orthostatic blood pressures are supine 159/77 sitting 138/71 and standing 126/72.? These are positive but by and large greatly improved, previously there was a 70 mmHg difference between supine and standing systolic pressure.? We will continue this treatment and monitor him.? He does have dizziness associated with this change in blood pressure.? If he again worsens a cardiology consult is appropriate. -on 03/16 the patient's orthostatic blood pressure is greatly improved and his supine blood pressure.? We will keep the same management, however the patient still complains of the exact same dizziness when he is lying down and standing up.? However he has not been wearing the abdominal binder.? I talked the and the patient how to place the abdominal binder and recommended that he wear it especially when he is sitting up and standing and walking. -on 03/17 discussed possible options left with Nephrology.? Decision made to discontinue furosemide to hopefully keep is volume up.? Tomorrow we will have an MRA of the abdomen done to evaluate his abdominal pain as well as to rule out renal artery stenosis.? Again reiterated the patient should be wearing the abdominal binder he has been refusing to due to abdominal discomfort.? We have good evidence that the abdominal binder greatly improved his orthostatic hypotension.? Have instituted elevation of head therapy and he can also have snack at night or heat pad to help reduce blood pressure while sleeping/laying.? Follows fails we could try to institute nitroglycerin transdermal or short-acting antihypertensives while he is lying down but the safer option would be that he does not lay flat for too long. On 03/18 the patient has slightly improved symptomatology with less of a headache and less dizziness.? We will continue p.r.n. Tylenol and tramadol and also continue daily Zyrtec and b.i.d. Flonase nasal spray.? He is wearing his abdominal binder more.? He states that he would not be able to sleep sitting up or avoid being supine altogether at home therefore with the supine SBP of 180-190 we will consult Cardiology again.? They? have added hydralazine 10 mg p.o. q.h.s.. Regarding his abdominal discomfort it seems to have improved.? MRA of the abdomen without and with contrast demonstrating a 2.7 cm enhancing mass in the left kidney upper pole consistent with renal cell carcinoma.? Abdomen CT without and with contrast is recommended but a discussion with Nephrology and the patient 1st will be prudent given he does have some urine output left.? As well, he reports he did have a biop
[2023-03-20] MEDS: carvediloL 25 MG TABLET PO ×2 (10:26→21:25)
--- NOTE | 2023-03-20 11:25 | PCOTNOTE ---
Attempted to see Patient this A.M. Patient refused to participate at this time. Patient seems frustrated in general. Patient and Patient's stated decisions can not be made, everyone keep changes things. Patient stated, My only plan is to wait here for some food, then maybe later somebody has more answers. Will check back at a later time.
[2023-03-20 12:27] LABS: Glucose Point of Care 124 mg/dl (65-105)
[2023-03-20] MEDS: SODIUM CHLORIDE 1 GM TABLET PO ×2 (13:38→17:11)
[2023-03-20] MEDS: CHOLECALCIFEROL 1,000 UNITS TABLET 5000 UNITS PO (13:38)
[2023-03-20] MEDS: SEVELAMER CARBONATE 800 MG TABLET PO ×2 (13:39→17:11)
[2023-03-20] MEDS: POTASSIUM CHLORIDE 10 MEQ ER TABLET PO (13:39)
[2023-03-20] MEDS: MIDODRINE HCL 2.5 MG TABLET PO ×2 (13:39→17:11)
[2023-03-20] MEDS: INSULIN GLARGINE (*BKC) 100 UNITS/ML 40 UNITS SUB-Q ×2 (13:41→21:24)
--- NOTE | 2023-03-20 13:45 | PM.PNNEP ---
Progress Note: A&P Assessment and Plan (1) End stage renal disease: Code(s): N18.6 - End stage renal disease Status: Chronic Assessment and Plan: continue nightly CCPD follow electrolytes, volume status, and clearance (2) Epigastric pain: Code(s): R10.13 - Epigastric pain Status: Acute Assessment and Plan: etiology still not clear described as pain after eating GI cocktail helps when occurs -- PUD versus GERD versus something else? GI following - s/p EGD which was okay colonoscopy done recently and was negative as well cardiac etiology? - Cardiology following clinically better at this time (3) Hypertension: Code(s): I10 - Essential (primary) hypertension Status: Chronic Assessment and Plan: quite elevated on presentation better at this time positive orthostasis -- better off sertraline and use of wendy hose + abdominal binder follow trend of hemodynamics (4) Anemia: Code(s): D64.9 - Anemia, unspecified Status: Chronic Assessment and Plan: H/H at goal/ supratherapeutic for ESRD no need for Epogen at this time (5) Diabetes mellitus: Code(s): E11.9 - Type 2 diabetes mellitus without complications Status: Chronic Assessment and Plan: follow accu-cheks glycemic control per hospitalists Will continue to follow. Subjective Date/time seen: 03/20/23 13:45 Interval history: Follow-up for end stage renal disease on peritoneal dialysis. Orthostasis still somewhat of an issue/problem; chest pain with mildly elevated troponin but the description of his chest pain is quite similar to his epigastric pain that he has had on admission; started on heparin gtt as well; tolerated CCPD treatment overnight without any issues or problems. Exam Narrative: General: WD/WN male in NAD Heart: normal S1 and S2; no rub Lungs: clear bilaterally Abdomen: soft, nontender, nondistended, positive bowel sounds Extremities: no cyanosis or clubbing; no edema Skin: no nodules Objective Data Vital Signs Vital Signs: Vital Signs Temp Pulse Resp BP Pulse Ox O2 Del Method 03/20/23 13:30 98.6 F 70 18 97 03/20/23 10:26 71 03/20/23 08:00 Room Air 03/20/23 06:00 97.5 F L 66 20 176/96 H 99 03/20/23 06:07 99.0 F 62 20 122/66 03/20/23 04:00 62 03/20/23 00:00 66 03/19/23 20:00 Room Air 03/19/23 20:00 74 03/19/23 21:40 99.0 F 03/19/23 20:14 85 122/66 100 03/19/23 20:11 74 148/80 H 100 03/19/23 20:06 99.5 F 71 20 169/79 H 100 03/19/23 20:09 80 Intake/Output Intake/Output: Intake & Output 03/17/23 03/18/23 03/19/23 03/20/23 23:59 23:59 23:59 23:59 Intake Total 1440 1280 1110 780 Output Total 8803 826 5626 702 Balance -220 543 -621 78 Meds/Results Medications: Active Medications Generic Name Dose Route Start Last Admin Trade Name Freq PRN Reason Stop Dose Admin Acetaminophen 1,000 mg 03/16/23 14:18 03/19/23 10:04 Acetaminophen 500 Mg Tablet PO 1,000 mg Q6H PRN Administration Mild Pain (1-7) or fever Hydrocodone Bitart/Acetaminophen 1 tab 03/12/23 14:58 03/19/23 20:09 Hydrocodone/Acetaminophen (*Crx) 5-325 Mg Tablet PO 1 tab Q8H PRN Administration pain 8-10 Atorvastatin Calcium 80 mg 03/12/23 21:00 03/19/23 20:09 Atorvastatin 40 Mg Tablet PO 80 mg HS JERMAINE Administration Calcium Carbonate 200 mg 03/13/23 10:24 03/19/23 10:04 Calcium Carbonate (Tums) 500 Mg (200 Mg Elemental) PO 200 mg Q6H PRN Administration Indigestion Carvedilol 25 mg 03/12/23 09:05 03/20/23 10:26 Carvedilol 25 Mg Tablet PO 25 mg Q12H JERMAINE Administration Dextrose 12.5 gm 03/12/23 08:02 Dextrose 50% 25 Gm/50 Ml Syringe IV PUSH PRN PRN Hypoglycemia Protocol Diltiazem HCl 240 mg 03/12/23 09:15 03/20/23 10:19 Diltiazem Hcl Cd
--- NOTE | 2023-03-20 13:45 | P.PNNP_ITS ---
Progress Note: A&P Assessment and Plan (1) End stage renal disease: Code(s): N18.6 - End stage renal disease Status: Chronic Assessment and Plan: * continue nightly CCPD * follow electrolytes, volume status, and clearance (2) Epigastric pain: Code(s): R10.13 - Epigastric pain Status: Acute Assessment and Plan: * etiology still not clear * described as pain after eating * GI cocktail helps when occurs -- PUD versus GERD versus something else? * GI following - s/p EGD which was okay * colonoscopy done recently and was negative as well * cardiac etiology? - Cardiology following * clinically better at this time (3) Hypertension: Code(s): I10 - Essential (primary) hypertension Status: Chronic Assessment and Plan: * quite elevated on presentation * better at this time * positive orthostasis -- better off sertraline and use of wendy hose + abdominal binder * follow trend of hemodynamics (4) Anemia: Code(s): D64.9 - Anemia, unspecified Status: Chronic Assessment and Plan: * H/H at goal/ supratherapeutic for ESRD * no need for Epogen at this time (5) Diabetes mellitus: Code(s): E11.9 - Type 2 diabetes mellitus without complications Status: Chronic Assessment and Plan: * follow accu-cheks * glycemic control per hospitalists Will continue to follow. Subjective Date/time seen: 03/20/23 13:45 Interval history: Follow-up for end stage renal disease on peritoneal dialysis. Orthostasis still somewhat of an issue/problem; chest pain with mildly elevated troponin but the description of his chest pain is quite similar to his epigastric pain that he has had on admission; started on heparin gtt as well; tolerated CCPD treatment overnight without any issues or problems. Exam Narrative: General: WD/WN male in NAD Heart: normal S1 and S2; no rub Lungs: clear bilaterally Abdomen: soft, nontender, nondistended, positive bowel sounds Extremities: no cyanosis or clubbing; no edema Skin: no nodules Objective Data Vital Signs Vital Signs: Vital Signs Temp Pulse Resp BP Pulse Ox O2 Del Method 03/20/23 13:30 98.6 F 70 18 97 03/20/23 10:26 71 03/20/23 08:00 Room Air 03/20/23 06:00 97.5 F L 66 20 176/96 H 99 03/20/23 06:07 99.0 F 62 20 122/66 03/20/23 04:00 62 03/20/23 00:00 66 03/19/23 20:00 Room Air 03/19/23 20:00 74 03/19/23 21:40 99.0 F 03/19/23 20:14 85 122/66 100 03/19/23 20:11 74 148/80 H 100 03/19/23 20:06 99.5 F 71 20 169/79 H 100 03/19/23 20:09 80 Intake/Output Intake/Output: Intake & Output 03/17/23 03/18/23 03/19/23 03/20/23 23:59 23:59 23:59 23:59 Intake Total 1440 1280 1110 780 Output Total 3295 590 7550 702 Balance -220 543 621 78 Meds/Results Medications: Active Medications Generic Name Dose Route Start Last Admin Trade Name Freq PRN Reason Stop Dose Admin Acetaminophen 1,000 mg 03/16/23 14:18 03/19/23 10:04 Acetaminophen 500 Mg Tablet PO 1,000 mg Q6H PRN A
[2023-03-20 13:52] LABS: Troponin I 0.282 ng/mL (0.000-0.034)
--- NOTE | 2023-03-20 14:30 | PCOTNOTE ---
Attempted again to see Patient this afternoon. Patient is in bed, stated they are still having work-ups on me . I'm not doing anything until, they can figure out what they are going to do with me. I'm not moving from here until then RN notified and is aware of his frustrations.
[2023-03-20 16:56] LABS: Basophils Percent Auto 0.2 % (0.2-1.2); Eosinophils Percent Auto 0.1 % (0-4.4); Hematocrit 37.2 % (42.0-52.0); Hemoglobin 11.8 g/dL (14.0-18.0); Immature Granulocyte Absolute 0.12 K/mm3 (0.00-0.031); Immature Granulocyte Percent A 1.2 % (0-0.5); Lymphocytes Absolute Auto 1.03 K/mm3 (0.9-3.2); Lymphocytes Percent Auto 10.6 % (18.3-44.2); Mean Corpuscular HGB Conc 31.7 g/dl (32-36); Mean Corpuscular Hemoglobin 31.8 pg (26-34); Mean Corpuscular Volume 100.3 fl (80-100); Mean Platelet Volume 11.1 fl (7.4-10.4); Monocytes Absolute Auto 1.4 K/mm3 (0.1-0.6); Monocytes Percent Auto 14.8 % (2.6-8.5); Neutrophils Absolute Auto 7.1 K/mm3 (1.3-6.7); Neutrophils Percent Auto 73.1 % (45.5-73.1); Platelet Count Result 150 k/mm3 (150-375); Red Blood Count 3.71 M/mm3 (4.6-6.20); Red Cell Distribution Width 16.6 % (11.5-14.5); White Blood Count 9.7 K/mm3 (4.5-10.0)
[2023-03-20 17:04] LABS: Prothrombin Time 13.5 Seconds (11.1-14.7)
[2023-03-20 17:05] LABS: Partial Thromboplastin Time 31.1 SECONDS (22.3-36.8)
[2023-03-20] MEDS: HEPARIN SOD/D5W 100 UNITS/ML 25,000 UNITS/250 ML BAG 10 UNITS IV CONT (17:06)
[2023-03-20 17:27] LABS: Troponin I 0.263 ng/mL (0.000-0.034)
[2023-03-20 17:41] LABS: Glucose Point of Care 148 mg/dl (65-105)
[2023-03-20] MEDS: CALCIUM CARBONATE (TUMS) 500 MG (200 MG ELEMENTAL) PO (19:00)
[2023-03-20] MEDS: INSULIN ASPART (*BKC) 100 UNITS/ML SUB-Q (21:24)
[2023-03-20] MEDS: hydrALAZINE 10 MG TABLET PO (21:25)
[2023-03-20] MEDS: ATORVASTATIN 40 MG TABLET 80 MG PO (21:25)
[2023-03-20] MEDS: traZODone HCL 50 MG TABLET 100 MG PO (21:25)
[2023-03-20] MEDS: PANTOPRAZOLE 40 MG TABLET PO (21:25)
[2023-03-20] MEDS: lisinopriL 20 MG TABLET PO (21:25)
[2023-03-20 22:17] LABS: Partial Thromboplastin Time 33.7 SECONDS (22.3-36.8)
[2023-03-20 23:47] LABS: Glucose Point of Care 201 mg/dl (65-105)
[2023-03-21] VITALS (10 sets, daily range): BP systolic 121–182; BP diastolic 58–92; PULSE 62–78; RESP 18–20; TEMP 35.9–36.9; O2SAT 97–99
[2023-03-21] MEDS: LEVOTHYROXINE SODIUM 112 MCG TABLET PO (05:25)
[2023-03-21 05:49] LABS: Basophils Percent Auto 0.2 % (0.2-1.2); Eosinophils Percent Auto 0.2 % (0-4.4); Hematocrit 39.7 % (42.0-52.0); Hemoglobin 12.7 g/dL (14.0-18.0); Immature Granulocyte Absolute 0.13 K/mm3 (0.00-0.031); Immature Granulocyte Percent A 1.6 % (0-0.5); Lymphocytes Absolute Auto 1.01 K/mm3 (0.9-3.2); Lymphocytes Percent Auto 12.5 % (18.3-44.2); Mean Corpuscular Hemoglobin 32.1 pg (26-34); Mean Corpuscular Volume 100.3 fl (80-100); Mean Platelet Volume 11.1 fl (7.4-10.4); Monocytes Absolute Auto 1.2 K/mm3 (0.1-0.6); Monocytes Percent Auto 14.3 % (2.6-8.5); Neutrophils Absolute Auto 5.8 K/mm3 (1.3-6.7); Neutrophils Percent Auto 71.2 % (45.5-73.1); Platelet Count Result 168 k/mm3 (150-375); Red Blood Count 3.96 M/mm3 (4.6-6.20); Red Cell Distribution Width 16.3 % (11.5-14.5); White Blood Count 8.1 K/mm3 (4.5-10.0)
[2023-03-21 06:10] LABS: Partial Thromboplastin Time 74.7 SECONDS (22.3-36.8)
[2023-03-21 08:34] LABS: Glucose Point of Care 133 mg/dl (65-105)
--- NOTE | 2023-03-21 08:56 | P.PNIM_ITS ---
Progress Note: A&P Assessment and Plan (1) Hypertension: Code(s): I10 - Essential (primary) hypertension Status: Chronic (2) Cirrhosis: Code(s): K74.60 - Unspecified cirrhosis of liver Status: Acute (3) Anemia: Code(s): D64.9 - Anemia, unspecified Status: Chronic (4) End stage renal disease: Code(s): N18.6 - End stage renal disease Status: Chronic Plan 68-year-old male with history of renal failure on peritoneal dialysis, prior kidney cancer, SHABNAM, insulin-dependent diabetes, anxiety, hypercholesterolemia, hypothyroidism, anemia, GERD, diastolic heart failure, unspecified cirrhosis, hypertension presents with elevated blood pressure and epigastric pain. (1) Hypertension: ?Code(s): I10 - Essential (primary) hypertension ?Status:?Chronic ?Assessment and Plan: - has been difficult to control even before admission.? He presented taking Lasix 160 mg twice per day, guanfacine 1.5 mg q.h.s., diltiazem 240 mg q.day, Coreg 25 mg b.i.d., lisinopril 20 mg q.h.s., tamsulosin 0.4 mg q.h.s. - 03/15 tamsulosin and going for the scene have since been discontinued.? He presents a complicated situation as he is on multiple antihypertensives and simply discontinuing them is ill-advised since his supine SBP is over 200 at times.? However, after starting thigh-high [place] hose and abdominal binder his orthostatic blood pressures are supine 159/77 sitting 138/71 and standing 126/72.? These are positive but by and large greatly improved, previously there was a 70 mmHg difference between supine and standing systolic pressure.? We will continue this treatment and monitor him.? He does have dizziness associated with this change in blood pressure.? If he again worsens a cardiology consult is appropriate. -on 03/16 the patient's orthostatic blood pressure is greatly improved and his supine blood pressure.? We will keep the same management, however the patient still complains of the exact same dizziness when he is lying down and standing up.? However he has not been wearing the abdominal binder.? I talked the and the patient how to place the abdominal binder and recommended that he wear it especially when he is sitting up and standing and walking. -on 03/17 discussed possible options left with Nephrology.? Decision made to discontinue furosemide to hopefully keep is volume up.? Tomorrow we will have an MRA of the abdomen done to evaluate his abdominal pain as well as to rule out renal artery stenosis.? Again reiterated the patient should be wearing the abdominal binder he has been refusing to due to abdominal discomfort.? We have good evidence that the abdominal binder greatly improved his orthostatic hypotension.? Have instituted elevation of head therapy and he can also have snack at night or heat pad to help reduce blood pressure while sleeping/laying.? Follows fails we could try to institute nitroglycerin transdermal or short- acting antihypertensives while he is lying down but the safer option would be that he does not lay flat for too long. On 03/18 the patient has slightly improved symptomatology with less of a headache and less dizziness.? We will continue p.r.n. Tylenol and tramadol and also continue daily Zyrtec and b.i.d. Flonase nasal spray.? He is wearing his abdominal binder more.? He states that he would not be able to sleep sitting up or avoid being supine altogether at home therefore with the supine SBP of 180- 190 we will consult Cardiology again.? They? have added hydralazine 10 mg p.o. q.h.s.. Regarding his abdominal discomfort it seems to have improved.? MRA of the abdomen without and with contrast demonstrating a 2.7 cm enhan
--- NOTE | 2023-03-21 09:14 | PM.PNCARD ---
Progress Note: A&P Assessment and Plan (1) CAD (coronary artery disease): Code(s): I25.10 - Atherosclerotic heart disease of [place] coronary artery without angina pectoris Status: Acute (2) Chest pain: Code(s): R07.9 - Chest pain, unspecified Status: Acute (3) Elevated troponin: Code(s): R77.8 - Other specified abnormalities of plasma proteins Status: Acute (4) End stage renal disease: Code(s): N18.6 - End stage renal disease Status: Chronic Plan 68-year-old man with complicated situation: Coronary artery disease with previous percutaneous revascularization of the LAD at [facility] in 2020. His cardiovascular follow-up is at the [facility]/not here at [facility]. He has episodes of his intermittent symptoms during this hospital stay that have been creating concern in requesting to see him in consultation and follow-up several times. I would agree with my partner Dr. Lc joe performed the original consultation the symptoms are quite atypical and not very suggestive of myocardial ischemia. His troponin levels are low level/flat elevation consistent with his end-stage renal disease. The patient was indicating someone else on the service told him that the troponin levels were rising and falling. His labs have been reviewed personally today and that is not the case. He has flat low level troponin elevation that is consistent with end-stage renal disease. 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 His cardiovascular follow-up is already established at [facility]. If you have further cardiac questions while he is here please let me know. Elroy Miranda MD [facility] Subjective Date/time seen: Date of service: 03/21/23 09:14 Interval history: 68-year-old admitted because of hypertensive urgency Date of service 03/13/2023: Was doing fine until he ate breakfast. Since then he has been complaining of epigastric pain as well as dizziness. No shortness of date of service 03/18/2023: Cardiology was asked to re-evaluate this patient because of orthostatic hypotension and supine hypertension. Date of service 03/20/2023: Patient was placed on heparin drip last night because of a complaint of chest pain and troponin elevated at 0.214. Patient is currently denying any chest pain. He is complaining about being hungry. He is also having dizziness when he lays on his right side in bed. Continues to have dizziness with other postural changes. Date of service 03/21/2023: Patient is asymptomatic sitting in chair visiting his . IV heparin is running. He is waiting to determine if I plan to perform a coronary angiogram today. Long discussion with the patient and about all of this. Entire chart reviewed. There is no objective evidence of ACS. Exam Narrative: Awake alert oriented appears stated age Const: General: comfortable and no acute distress HENMT: Face/Nose/Sinus: Normal nares present Mouth: Yes moist mucous membranes Eyes: General: appearance normal, both eyes and all related structures Sclera: sclerae normal Neck: Neck: supple and no JVD Carotids: no bruits Chest: Other: No reproducible chest wall pain to palpation Resp: Effort & Inspection: normal respiratory effort Auscultation: clear to auscultation bilaterally Cardio: Rate: regular rate Rhythm: regular rhythm Heart sounds: no murmurs GI: Inspection: non-distended Auscultation: normal bowel sounds Skin: General skin exam: normal color Neuro: Cranial nerves: Yes Normal hearing present Speech: normal speech and No Abnormal speech present Sensory Exam: normal sensation Extrem: General: normal to inspection Psych: Mental Status: mental status grossly normal Objective Data Vital Signs Vital Signs: Vital Signs - 24 hr
[2023-03-21 09:28] LABS: Alanine Aminotransferase 28 U/L (6-50); Albumin Level 3.5 g/dL (3.5-5.1); Alkaline Phosphatase 88 U/L (38-126); Anion Gap 13 mmol/L (8-16); Aspartate Amino Transferase 28 U/L (17-59); Bilirubin,Total 0.5 mg/dL (0.2-1.3); Blood Urea Nitrogen 50 mg/dL (9-20); Calcium 10.1 mg/dL (8.4-10.2); Carbon Dioxide 25 mmol/L (22-30); Chloride 98 mmol/L (98-107); Estimated CRCL calculation 7 ml/min; Estimated Glomerular Filt Rate 4; Glucose 143 mg/dL (65-110); Sodium 136 mmol/L (137-145)
--- NOTE | 2023-03-21 09:50 | PCNWS ---
Weekly nutritional screen. Patient is tolerating current diet with adequate intake. No weight loss reported. No nutritional needs at this time.
--- NOTE | 2023-03-21 10:16 | PCOTNOTE ---
Patient refused treatment this session. Patient refused to participate stating he did not want therapy. Patient was educated on the importance of participating in therapy. Patient continued to refused. was present during the education and refusal.
[2023-03-21] MEDS: INSULIN GLARGINE (*BKC) 100 UNITS/ML 40 UNITS SUB-Q ×2 (10:19→21:21)
--- NOTE | 2023-03-21 10:46 | P.PNNP_ITS ---
Progress Note: A&P Assessment and Plan (1) End stage renal disease: Code(s): N18.6 - End stage renal disease Status: Chronic Assessment and Plan: * continue nightly CCPD * follow electrolytes, volume status, and clearance (2) Epigastric pain: Code(s): R10.13 - Epigastric pain Status: Acute Assessment and Plan: * etiology still not clear * described as pain after eating * GI cocktail helps when occurs -- PUD versus GERD versus something else? * GI following - s/p EGD which was okay * colonoscopy done recently and was negative as well * cardiac etiology? - Cardiology following * clinically better at this time (3) Hypertension: Code(s): I10 - Essential (primary) hypertension Status: Chronic Assessment and Plan: * quite elevated on presentation * better at this time * positive orthostasis -- better off sertraline and use of wendy hose + abdominal binder * noted addition on midodrine, florinef, and salt tabs (!) * this maybe too much and cause issues with worsening edema.... * follow trend of hemodynamics (4) Anemia: Code(s): D64.9 - Anemia, unspecified Status: Chronic Assessment and Plan: * H/H at goal/ supratherapeutic for ESRD * no need for Epogen at this time (5) Diabetes mellitus: Code(s): E11.9 - Type 2 diabetes mellitus without complications Status: Chronic Assessment and Plan: * follow accu-cheks * glycemic control per hospitalists Will continue to follow. Subjective Date/time seen: 03/21/23 10:46 Interval history: Follow-up for end stage renal disease on peritoneal dialysis. Tolerated CCPD treatment last night without any issues or problems; orthostasis seems to be doing better but complicated by patient's compliance issues; does not always wear abdominal binder or to take medications as prescribed; no plans for cardiac catheterization per Cardiology. Exam Narrative: General: WD/WN male in NAD Heart: normal S1 and S2; no rub Lungs: clear bilaterally Abdomen: soft, nontender, nondistended, positive bowel sounds Extremities: no cyanosis or clubbing; no edema Skin: warm and dry Objective Data Vital Signs Vital Signs: Hypoglycemia Protocol Glucose 15 gm 03/12/23 08:02 Glucose Oral Gel 15 Gm Of Glucse In 37.5 Gm Tube PO PRN PRN Hypoglycemia Protocol Hydralazine HCl 10 mg 03/12/23 00:26 03/15/23 21:54 Hydralazine Hcl 20 Mg/Ml Vial IV PUSH 10 mg Q4H PRN Administration Blood Pressure - High Hydralazine HCl 10 mg 03/18/23 21:00 03/20/23 21:25 Hydralazine 10 Mg Tablet PO 10 mg QHS JERMAINE Administration Dextrose 1,000 mls @ 100 mls/hr 03/12/23 08:02 Dextrose 5% 1,000 Ml IVPB PRN PRN Hypoglycemia Protocol Insulin Aspart 4 - 8 units 03/12/23 08:05 03/21/23 12:41 Insulin Aspart (*Bkc) 100 Units/Ml SUB-Q Not Given TIDWM JERMAINE Protocol Insulin Aspart 2 - 4 units 03/12/23 21:00 03/20/23 21:24 Insulin Aspart (*Bkc) 100 Units/Ml SUB-Q 2 units HS JERMAINE Administration Protocol Insulin Glargine 40 units 03/12/23 09:05 03/21/23 10:19 Insulin Glargine (*Bkc) 100 Units/Ml SUB-Q 40 units Q12HR JERMAINE Administration
--- NOTE | 2023-03-21 10:46 | PM.PNNEP ---
Progress Note: A&P Assessment and Plan (1) End stage renal disease: Code(s): N18.6 - End stage renal disease Status: Chronic Assessment and Plan: continue nightly CCPD follow electrolytes, volume status, and clearance (2) Epigastric pain: Code(s): R10.13 - Epigastric pain Status: Acute Assessment and Plan: etiology still not clear described as pain after eating GI cocktail helps when occurs -- PUD versus GERD versus something else? GI following - s/p EGD which was okay colonoscopy done recently and was negative as well cardiac etiology? - Cardiology following clinically better at this time (3) Hypertension: Code(s): I10 - Essential (primary) hypertension Status: Chronic Assessment and Plan: quite elevated on presentation better at this time positive orthostasis -- better off sertraline and use of wendy hose + abdominal binder noted addition on midodrine, florinef, and salt tabs (!) this maybe too much and cause issues with worsening edema.... follow trend of hemodynamics (4) Anemia: Code(s): D64.9 - Anemia, unspecified Status: Chronic Assessment and Plan: H/H at goal/ supratherapeutic for ESRD no need for Epogen at this time (5) Diabetes mellitus: Code(s): E11.9 - Type 2 diabetes mellitus without complications Status: Chronic Assessment and Plan: follow accu-cheks glycemic control per hospitalists Will continue to follow. Subjective Date/time seen: 03/21/23 10:46 Interval history: Follow-up for end stage renal disease on peritoneal dialysis. Tolerated CCPD treatment last night without any issues or problems; orthostasis seems to be doing better but complicated by patient's compliance issues; does not always wear abdominal binder or to take medications as prescribed; no plans for cardiac catheterization per Cardiology. Exam Narrative: General: WD/WN male in NAD Heart: normal S1 and S2; no rub Lungs: clear bilaterally Abdomen: soft, nontender, nondistended, positive bowel sounds Extremities: no cyanosis or clubbing; no edema Skin: warm and dry Objective Data Vital Signs Vital Signs: Vital Signs Temp Pulse Resp BP Pulse Ox O2 Del Method 03/21/23 10:00 68 03/21/23 08:00 62 03/21/23 08:00 Room Air 03/21/23 06:05 98.1 F 78 20 121/61 99 03/21/23 06:00 96.6 F L 67 20 136/58 L 98 03/21/23 06:00 96.6 F L 67 20 136/58 L 98 03/21/23 04:00 62 03/21/23 00:00 75 03/20/23 20:00 72 20 98 Room Air 03/20/23 20:00 97.6 F 72 20 125/58 L 98 03/20/23 20:00 74 03/20/23 22:15 97.6 F 72 20 125/58 L 98 03/20/23 21:25 72 03/20/23 21:10 98.6 F 65 18 95/52 L 97 Room Air Intake/Output Intake/Output: Intake & Output 03/18/23 03/19/23 03/20/23 03/21/23 23:59 23:59 23:59 23:59 Intake Total 1280 1110 780 300 Output Total 737 1731 702 561 Balance 543 -621 78 -261 Meds/Results Medications: Active Medications Generic Name Dose Route Start Last Admin Trade Name Freq PRN Reason Stop Dose Admin Acetaminophen 1,000 mg 03/16/23 14:18 03/19/23 10:04 Acetaminophen 500 Mg Tablet PO 1,000 mg Q6H PRN Administration Mild Pain (1-7) or fever Hydrocodone Bitart/Acetaminophen 1 tab 03/12/23 14:58 03/19/23 20:09 Hydrocodone/Acetaminophen (*Crx) 5-325 Mg Tablet PO 1 tab Q8H PRN Administration pain 8-10 Atorvastatin Calcium 80 mg 03/12/23 21:00 03/20/23 21:25 Atorvastatin 40 Mg Tablet PO 80 mg HS JERMAINE Administration Calcium Carbonate 200 mg 03/13/23 10:24 03/21/23 13:06 Calcium Carbonate (Tums) 500 Mg (200 Mg Elemental) PO 200 mg Q6H PRN Administration Indigestion Carvedilol 25 mg 03/12/23 09:05 03/21/23 10:21 Carvedilol 25 Mg Tablet PO Not Given Q12H JERMAINE Dextrose 12.5 gm 03/12/23 08:02 Dextrose 50% 25 Gm/5
--- NOTE | 2023-03-21 11:15 | PC.NURSE ---
Pt refused morning medications.
--- NOTE | 2023-03-21 11:53 | PCPTNOTE ---
Attempted to see patient for PT and discuss with patient about wanting PT services. Patient refused to participate in PT treatment session and reported he did not want to work with PT right now until he feels better. Patient is getting up on his own in his room and walking with on his own in the room. Patient and patient's feels he does not need PT at this time.
[2023-03-21 12:12] LABS: Glucose Point of Care 151 mg/dl (65-105)
[2023-03-21] MEDS: POTASSIUM CHLORIDE 10 MEQ ER TABLET PO (13:03)
[2023-03-21] MEDS: CHOLECALCIFEROL 1,000 UNITS TABLET 5000 UNITS PO (13:03)
[2023-03-21] MEDS: SEVELAMER CARBONATE 800 MG TABLET PO ×2 (13:03→17:46)
[2023-03-21] MEDS: SODIUM CHLORIDE 1 GM TABLET PO ×2 (13:04→17:46)
[2023-03-21] MEDS: MIDODRINE HCL 2.5 MG TABLET PO ×2 (13:04→17:46)
[2023-03-21] MEDS: CALCIUM CARBONATE (TUMS) 500 MG (200 MG ELEMENTAL) PO (13:06)
[2023-03-21] MEDS: traMADol HCL (*CRX) 25 MG TABLET PO (13:09)
--- NOTE | 2023-03-21 14:16 | PCOTNOTE ---
Attempted to see Patient this P.M. Patient refuses therapy services, states he doesn't need therapy services and is requesting discharged from services. Patient has not been seen since the evaluation was completed 5 days ago.
[2023-03-21 17:34] LABS: Glucose Point of Care 128 mg/dl (65-105)
[2023-03-21] MEDS: SENNA/DOCUSATE SODIUM TABLET 1 TAB PO (17:46)
[2023-03-21] MEDS: INSULIN ASPART (*BKC) 100 UNITS/ML SUB-Q (21:21)
[2023-03-21] MEDS: HYDROcodone/acetaminophen (*CRX) 5-325 MG TABLET 1 TAB PO (21:22)
[2023-03-21] MEDS: traZODone HCL 50 MG TABLET 100 MG PO (21:22)
[2023-03-21] MEDS: lisinopriL 20 MG TABLET PO (21:23)
[2023-03-21] MEDS: ATORVASTATIN 40 MG TABLET 80 MG PO (21:23)
[2023-03-21] MEDS: PANTOPRAZOLE 40 MG TABLET PO (21:23)
[2023-03-21] MEDS: hydrALAZINE 10 MG TABLET PO (21:23)
[2023-03-21] MEDS: OPTI-GEN TAB 1 TABLET PO (21:23)
[2023-03-21] MEDS: carvediloL 25 MG TABLET PO (21:23)
[2023-03-21] MEDS: FLUTICASONE PROPIONATE 0.05% NA SPR 16 GM BTL (*BKC) 2 SPRAY NASAL (21:23)
[2023-03-21 21:24] LABS: Glucose Point of Care 252 mg/dl (65-105)
[2023-03-22] VITALS (10 sets, daily range): BP systolic 130–185; BP diastolic 67–79; PULSE 62–78; RESP 21; TEMP 36.1; O2SAT 100
[2023-03-22] MEDS: LEVOTHYROXINE SODIUM 112 MCG TABLET PO (06:10)
[2023-03-22] MEDS: HYDROcodone/acetaminophen (*CRX) 5-325 MG TABLET 1 TAB PO (06:14)
[2023-03-22 07:55] LABS: Glucose Point of Care 111 mg/dl (65-105)
[2023-03-22] MEDS: FLUDROCORTISONE ACETATE 0.1 MG TABLET PO (09:10)
[2023-03-22] MEDS: MIDODRINE HCL 2.5 MG TABLET PO (09:11)
[2023-03-22] MEDS: SEVELAMER CARBONATE 800 MG TABLET PO ×2 (09:11→13:35)
[2023-03-22] MEDS: SODIUM CHLORIDE 1 GM TABLET PO (09:11)
[2023-03-22] MEDS: carvediloL 25 MG TABLET PO (09:11)
[2023-03-22] MEDS: LORATADINE 10 MG TABLET PO (09:11)
[2023-03-22] MEDS: SENNA/DOCUSATE SODIUM TABLET 1 TAB PO (09:11)
[2023-03-22] MEDS: FLUTICASONE PROPIONATE 0.05% NA SPR 16 GM BTL (*BKC) 2 SPRAY NASAL (09:11)
[2023-03-22] MEDS: OPTI-GEN TAB 1 TABLET PO (09:13)
[2023-03-22] MEDS: INSULIN GLARGINE (*BKC) 100 UNITS/ML 40 UNITS SUB-Q (09:17)
--- NOTE | 2023-03-22 09:31 | PM.DS ---
DS: Admitting Diagnosis Discharge Date 03/22/23 Admitting Diagnosis (1) Hypertension: ?Code(s): I10 - Essential (primary) hypertension ?Status:?Chronic (2) Cirrhosis: ?Code(s): K74.60 - Unspecified cirrhosis of liver ?Status:?Acute (3) Anemia: ?Code(s): D64.9 - Anemia, unspecified ?Status:?Chronic (4) End stage renal disease: ?Code(s): N18.6 - End stage renal disease ?Status:?Chronic DS: Discharge Diagnosis Discharge Diagnosis (1) Hypertension: Code(s): I10 - Essential (primary) hypertension Status: Chronic (2) Cirrhosis: Code(s): K74.60 - Unspecified cirrhosis of liver Status: Acute (3) Anemia: Code(s): D64.9 - Anemia, unspecified Status: Chronic (4) End stage renal disease: Code(s): N18.6 - End stage renal disease Status: Chronic DS: Summary Hospital Course Hospital Course: 68-year-old male with history of renal failure on peritoneal dialysis, prior kidney cancer, SHABNAM, insulin-dependent diabetes, anxiety, hypercholesterolemia, hypothyroidism, anemia, GERD, diastolic heart failure, unspecified cirrhosis, hypertension presents with elevated blood pressure and epigastric pain. The following medical issues have been addressed during hospitalization (1) Hypertension: ?Code(s): I10 - Essential (primary) hypertension ?Status:?Chronic ?Assessment and Plan: - has been difficult to control even before admission.? He presented taking Lasix 160 mg twice per day, guanfacine 1.5 mg q.h.s., diltiazem 240 mg q.day, Coreg 25 mg b.i.d., lisinopril 20 mg q.h.s., tamsulosin 0.4 mg q.h.s. - 03/15 tamsulosin and going for the scene have since been discontinued.? He presents a complicated situation as he is on multiple antihypertensives and simply discontinuing them is ill-advised since his supine SBP is over 200 at times.? However, after starting thigh-high [place] hose and abdominal binder his orthostatic blood pressures are supine 159/77 sitting 138/71 and standing 126/72.? These are positive but by and large greatly improved, previously there was a 70 mmHg difference between supine and standing systolic pressure.? We will continue this treatment and monitor him.? He does have dizziness associated with this change in blood pressure.? If he again worsens a cardiology consult is appropriate. -on 03/16 the patient's orthostatic blood pressure is greatly improved and his supine blood pressure.? We will keep the same management, however the patient still complains of the exact same dizziness when he is lying down and standing up.? However he has not been wearing the abdominal binder.? I talked the and the patient how to place the abdominal binder and recommended that he wear it especially when he is sitting up and standing and walking. -on 03/17 discussed possible options left with Nephrology.? Decision made to discontinue furosemide to hopefully keep is volume up.? Tomorrow we will have an MRA of the abdomen done to evaluate his abdominal pain as well as to rule out renal artery stenosis.? Again reiterated the patient should be wearing the abdominal binder he has been refusing to due to abdominal discomfort.? We have good evidence that the abdominal binder greatly improved his orthostatic hypotension.? Have instituted elevation of head therapy and he can also have snack at night or heat pad to help reduce blood pressure while sleeping/laying.? Follows fails we could try to institute nitroglycerin transdermal or short-acting antihypertensives while he is lying down but the safer option would be that he does not lay flat for too long. On 03/18 the patient has slightly improved symptomatology with less of a headache and less dizziness.? We will continue p.r.n. Tylenol and tramadol and also continue daily Zyrtec and b.i.d. Flonase nasal spray.? He is wearing his abdominal binder more.? He states that he would not be able to sleep sitting up or avoid b
--- NOTE | 2023-03-22 09:59 | PM.PNNEP ---
Progress Note: A&P Assessment and Plan (1) End stage renal disease: Code(s): N18.6 - End stage renal disease Status: Chronic Assessment and Plan: continue CCPD he had 814cc off last night. less fluid off as planned. Blood pressure is generally running between 130 and 150. It does drop with standing but not as much as it used to. volume status looks okay electrolytes look okay as well (2) Epigastric pain: Code(s): R10.13 - Epigastric pain Status: Acute Assessment and Plan: described as pain after eating GI cocktail helps when occurs -- PUD versus GERD versus something else GI following - s/p EGD which was okay. MRA of the abdomen did not show any vascular issues. colonoscopy done recently and was negative as well. He is on pantoprazole. (3) Hypertension: Code(s): I10 - Essential (primary) hypertension Status: Chronic Assessment and Plan: quite elevated on presentation this has improved. He had quite an orthostatic drop as well. This has been better with stopping his sertraline, using Dale hose, and an abdominal binder. He also was placed on midodrine, Florinef, and salt tablets. He does not make much urine so I doubt that Florinef will help. Salt tablets do not generally help. It might be more pleasing to him to increase his dietary salt intake rather than taking salt tabs. So will stop this. he is currently on carvedilol twice a day, diltiazem Q a.m., hydralazine 10mg q.h.s., and lisinopril q.h.s. he is on so many medications. Will try switching diltiazem to evening ( I talked with nursing who is holding his diltiazem dose this morning). Will stop salt tablets and Florinef. Will change midodrine to as needed. (4) Anemia: Code(s): D64.9 - Anemia, unspecified Status: Chronic Assessment and Plan: H/H at goal for ESRD hb 12.7 (5) Diabetes mellitus: Code(s): E11.9 - Type 2 diabetes mellitus without complications Status: Chronic Assessment and Plan: follow accu-cheks glycemic control per hospitalists (6) Vertigo: Code(s): R42 - Dizziness and giddiness Status: Inactive Assessment and Plan: This seems better (7) Renal mass: Code(s): N28.89 - Other specified disorders of kidney and ureter Status: Acute Assessment and Plan: a renal mass was found on his MRA . I talked with the patient and his about this and apparently this has been going on for a long time and the urologists Aubrey are following this. Subjective Date/time seen: 03/22/23 09:59 Interval history: The patient is sitting up in a chair. is in the room. His breakfast is in front of a but he is not hungry. He ate some fish and chips last night he says. His spirits are okay but seems withdrawn. He is generally weak. No shortness of breath. He still has abdominal discomfort especially after eating but sometimes it lasts all day long. Exam Narrative: General: WD/WN male in NAD Heart: normal S1 and S2; no rub Or gallop Lungs: clear bilaterally Abdomen: soft, nontender, nondistended, positive bowel sounds Extremities: no edema Skin: no rash Objective Data Vital Signs Vital Signs: Vital Signs - 24 hr 03/21/23 12:00 03/21/23 16:00 03/21/23 18:46 Temperature Pulse Rate 68 64 Respiratory Rate Blood Pressure Pulse Oximetry Oxygen Delivery Room Air 03/21/23 21:23 03/21/23 20:00 03/21/23 20:00 Temperature 98.4 F Pulse Rate 68 69 67 Respiratory Rate 18 Blood Pressure 182/92 H Pulse Oximetry 97 Oxygen Delivery 03/21/23 20:00 03/22/23 00:00 03/22/23 04:00 Temperature Pulse Rate 67 65 66 Respiratory Rate 18 Blood Pressure Pulse Oximetry 97 Oxygen Delivery Room Air 03/22/23 06:00 03/21/23 21:45 03/22/23 06:00 Temperature 97.0 F L 97.7 F 97.0 F L Pulse Rate 65
[2023-03-22 11:27] LABS: Glucose Point of Care 123 mg/dl (65-105)
[2023-03-22] MEDS: CHOLECALCIFEROL 1,000 UNITS TABLET 5000 UNITS PO (13:35)
[2023-03-22] MEDS: POTASSIUM CHLORIDE 10 MEQ ER TABLET PO (13:35)
== END 2023-03-22 14:09 | disposition home or self-care (01) | DRG 304 ==
LOC: ANHED 03-12 00:40 → ANHIMU 03-12 01:16 → ANHICU 03-12 06:05 → ANH3MED 03-12 17:28
PROVIDERS: General Practice; Internal Medicine Gastroenterology; Internal Medicine Nephrology; Nurse Practitioner; Admitting Provider Internal Medicine; Emergency Provider Emergency Medicine; PCP Family Medicine; Visit Provider Hospitalist
PROC: 0DJ08ZZ Inspection of Upper Intestinal Tract, Via Natural or Artificial Opening Endoscopic (ICD-10-PCS; CPT 43235; principal; 2023-03-14 15:00)
DX: I16.0 Hypertensive urgency (principal); N18.6 End stage renal disease; I50.32 Chronic diastolic (congestive) heart failure; I13.2 Hypertensive heart and chronic kidney disease with heart failure and with stage 5 chronic kidney disease, or end stage renal disease; E11.22 Type 2 diabetes mellitus with diabetic chronic kidney disease; I95.1 Orthostatic hypotension; K74.60 Unspecified cirrhosis of liver; I25.10 Atherosclerotic heart disease of native coronary artery without angina pectoris; N40.0 Benign prostatic hyperplasia without lower urinary tract symptoms; K21.9 Gastro-esophageal reflux disease without esophagitis; G47.33 Obstructive sleep apnea (adult) (pediatric); K29.70 Gastritis, unspecified, without bleeding; D63.1 Anemia in chronic kidney disease; K31.7 Polyp of stomach and duodenum; E78.5 Hyperlipidemia, unspecified; D72.829 Elevated white blood cell count, unspecified; F41.9 Anxiety disorder, unspecified; G47.00 Insomnia, unspecified; N28.89 Other specified disorders of kidney and ureter; E03.9 Hypothyroidism, unspecified; Z96.651 Presence of right artificial knee joint; Z99.2 Dependence on renal dialysis; Z98.42 Cataract extraction status, left eye; Z90.49 Acquired absence of other specified parts of digestive tract; Z85.528 Personal history of other malignant neoplasm of kidney; Z86.16 Personal history of COVID-19; S22.20XD Unspecified fracture of sternum, subsequent encounter for fracture with routine healing
CPT/HCPCS: 36415; 70450; 70553; 71045; 71046; 74185; 80053; 80069; 81001; 82607; 82746; 82948; 83690; 83735; 84145; 84484; 85025; 85055; 85610; 85730; 86706; 87040; 87070; 87075; 87086; 87205; 87340; 87641; 88305; 89051; 90945; 93005; 93306; 94002; 96365; 96374; 97161; 97165; 97530; 99285; A9270; A9577; C8902; G0378; J0360; J0696; J1200; J1644; J1815; J2405; J2704; J2765; J7040

== ENCOUNTER 2023-04-21 17:06 | Emergency (ER) | payer MEDICARE, SELFPAY ==
--- NOTE | ~2023-04-21 | CT_ITS ---
EXAMINATION: CTA brain carotid DATE: 04/21/2023 18:55 INDICATION: headache, dizziness TECHNIQUE: Computed tomographic angiography (CTA) of the head and neck was performed with 100 mL Omni paque-350 intravenous contrast. Automated exposure control and iterative reconstruction technique wer e employed. The dose-length product was 1243.81 mGy-cm. Maximum intensity projection and volume rend ered 3D-reconstructions were created by the technologist on a separate workstation. COMPARISON: CT brain, same date. FINDINGS: CTA HEAD: No large vessel occlusion, aneurysm, high flow vascular malformation, nidus or extravasation. Symmetr ic parenchymal enhancement. Patent cerebral veins. CTA NECK: Aortic arch and proximal great vessels: Bovine arch anatomy. Right common carotid, carotid bifurcation, and internal carotid artery: Mild calcified plaque at the bifurcation.There is 0% stenosis of the proximal right internal carotid artery relative to normal dis teresa artery lumen diameter (NASCET criteria). Left common carotid, carotid bifurcation, and internal carotid artery: Mild calcified plaque at the b ifurcation.There is 0% stenosis of the proximal left internal carotid artery relative to normal dista l artery lumen diameter (NASCET criteria). Vertebral arteries: No significant plaque or stenosis. Other findings: Degenerative changes in the cervical spine. Chronic sinus findings described in the [facility] brain CT report. Calcified lung granulomas. Pretracheal lymph node enlargement. IMPRESSION: No large vessel intracranial occlusion, high-grade intracranial stenosis, or aneurysm. No carotid or vertebral artery occlusion, dissection, or significant stenosis. Pretracheal lymphadenopathy. Reviewed, dictated and finalized at location K. RTING SPECIALIST IMPRESSION: No large vessel intracranial occlusion, high-grade intracranial stenosis, or an eurysm. No carotid or vertebral artery occlusion, dissection, or significant stenosis. Pretracheal lymphadenopathy.
--- NOTE | ~2023-04-21 | CT_ITS ---
EXAMINATION: CT brain wo con DATE: 04/21/2023 17:35 INDICATION: headache . TECHNIQUE: Computed tomography (CT) of the head was performed without intravenous contrast. The mA wa s adjusted according to patient size. Iterative reconstruction technique was employed. The dose-lengt h product was 681.00 mGy-cm. COMPARISON: 03/11/2023; MR brain 03/17/2023. FINDINGS: No acute intracranial hemorrhage or extra-axial fluid collection. No hydrocephalus, mass, or herniation. No acute ischemic infarct. Unremarkable dural venous sinus attenuation. No acute osseous abnormality. Post surgical change in the ethmoid and sphenoid sinuses. Ethmoid and sphenoid mucosal thickening wit h chronic appearing debris and surrounding sclerosis. Poorly pneumatized frontal sinuses. The remaini ng aerated spaces are clear. Mild atrophy and chronic white matter change. Atherosclerotic intracranial calcification. Left lens r eplacement. Bilateral basal ganglia calcification. IMPRESSION: No acute intracranial process. Chronic sinusitis. Reviewed, dictated and finalized at location K. ATOR SENIOR CLINICAL
--- NOTE | ~2023-04-21 | XR_ITS ---
EXAMINATION: XR chest 2V Exam Date/Time: 04/21/2023 18:55 HAND GLUER AND SLICER HISTORY: dizziness Comparison: 03/19/2023. RESULT: Lines, tubes, and devices: External fixation hardware. Lungs and pleura: Clear. Cardiomediastinal silhouette: Stable. Other: No acute osseous or upper abdominal finding. IMPRESSION: No acute cardiopulmonary process. Reviewed, dictated and finalized at location K. GLUER AND SLICER
[2023-04-21 17:08] VITALS: BP 179/81; PULSE 62; RESP 20; TEMP 36.4; O2SAT 98
--- NOTE | 2023-04-21 17:17 | ED.GENADULT ---
HPI - General Adult General Chief complaint: Headache <Sloane Rm June, EXCHANGE TROUBLE SHOOTER - Last Filed: 04/21/23 17:20> Stated complaint: headache, blurred vision <Sloane Rm June, EXCHANGE TROUBLE SHOOTER - Last Filed: 04/21/23 17:20> Time Seen by Provider: 04/21/23 17:18 <Sloane Rm June, EXCHANGE TROUBLE SHOOTER - Last Filed: 04/21/23 17:20> Focused HPI: 68 y/o male with PMhx HTN/ DM who presents with reports of having blurry vision for about 6 months that he thinks is getting worse. He states he had eye surgery about 1 week ago to his left eye, he states he got an eye infection after the surgery and he went back to the eye doctor today because he has continued blurry vision and a headache for the past two days - his eye doctor told him his vision is well and that he needs to go to the ED for a head ct. Patient reports taking Tylenol for his headache today without relief. Denies any recent falls/trauma GENERAL: Well-appearing, well-nourished, and in no acute distress. HEAD: Normocephalic, atraumatic. CHEST: Clear to auscultation. ?No respiratory distress. HEART: Regular rate and rhythm.? NEURO: ?Alert and oriented x3. Patient screened in triage and initial orders placed.? ?Additional care and disposition to be based upon?diagnostic testing and treatment. <Sloane Rm June, EXCHANGE TROUBLE SHOOTER - Last Filed: 04/21/23 17:20> Focused HPI: 68 y/o male with PMhx HTN/ DM who presents with reports of having blurry vision for about 6 months that he thinks is getting worse. He states he had eye surgery about 1 week ago to his left eye, he states he got an eye infection after the surgery and he went back to the eye doctor today because he has continued blurry vision and a headache for the past two days - his eye doctor told him his vision is well and that he needs to go to the ED for a head ct. Patient reports taking Tylenol for his headache today without relief. Denies any recent falls/trauma GENERAL: Well-appearing, well-nourished, and in no acute distress. HEAD: Normocephalic, atraumatic. CHEST: Clear to auscultation. ?No respiratory distress. HEART: Regular rate and rhythm.? NEURO: ?Alert and oriented x3. Patient screened in triage and initial orders placed.? ?Additional care and disposition to be based upon?diagnostic testing and treatment. <Charmaine Almanza PA-C - Last Filed: 04/21/23 20:12> Related Data Home medications: Home Medications Medication Instructions Recorded Confirmed aspirin 81 mg tablet,delayed 81 mg PO DAILY 02/01/19 04/09/23 release (Sami Low Dose Aspirin) vit C 250 mg-vit E 200 unit-zinc 1 tablet PO Q12H 02/01/19 04/09/23 12.5 mg-copper 1 [id number]-[id number]-[id number] tablet (ICaps AREDS2 (copper citrate)) blood sugar diagnostic (OneTouch 05/14/19 04/09/23 Ultra Blue Test Strip) carvedilol 25 mg tablet (Coreg) 25 mg PO Q12H 09/06/19 04/09/23 insulin glargine 100 unit/mL (3 40 unit subcut Q12H 10/12/21 04/09/23 mL) subcutaneous pen (Basaglar KwikPen U-100 Insulin) lisinopril 20 mg tablet 20 mg PO HS 08/12/22 04/09/23 potassium chloride 10 mEq 10 meq PO 1400 08/12/22 04/09/23 capsule,extended release cholecalciferol (vitamin D3) 125 125 mcg PO 1400 10/01/22 04/09/23 mcg (5,000 unit) tablet (Vitamin D3) folic acid 0.8 mg-vit B comp with 1 tablet PO DAILY 10/01/22 04/09/23 M-clvm-xgwdplf D3 2,000 unit tablet (Dialyvite 800-Ultra D) furosemide 80 mg tablet 160 mg PO 0900,1400 10/01/22 04/09/23 insulin aspart U-100 100 unit/mL 30 unit subcut TIDWM 10/01/22 04/09/23 (3 mL) subcutaneous pen (Novolog FlexPen U-100 Insulin aspart) tamsulosin 0.4 mg capsule 0.4 mg PO HS 10/01/22 04/09/23 guanfacine 3 mg tablet,extended 1.5 mg PO HS 03/10/23 04/09/23 release 24 hr diphenhydramine 25 2 tablet PO HS 03/12/23 04/09/23 mg-acetaminophen 500 mg tablet (Tylenol PM Extra Strength) pantoprazole 40 mg tablet,delayed 40 mg PO HS 03/12/23 04/09/23 release duloxetine 30 mg capsule,delayed 30 mg PO DAILY depression 04/09/23 04/09/23 release
[2023-04-21 18:00] VITALS: O2SAT 99
--- NOTE | 2023-04-21 18:07 | ECG_ITS ---
Measurements Intervals [place] Rate: 62 P: 29 NM: 150 QRS: 107 QRSD: 104 T: 74 QT: 437 QTc: 446 Interpretive Statements SINUS RHYTHM RIGHT AXIS DEVIATION CANNOT RULE OUT SEPTAL INFARCT, AGE INDETERMINATE MINIMAL Q WAVES- INFERIOR LEADS BORDERLINE ST-T WAVE ABNORMALITY- INF/LAT LEADS ABNORMAL ECG COMPARED TO ECG 03/20/2023 10:04:34 PROLONGED QT INTERVAL NO LONGER PRESENT Electronically Signed On 04-21-2023 20:45:28 BREAKER UP MACHINE OPERATOR by Dilan Preciado D.O.
[2023-04-21 18:13] LABS: Basophils Percent Auto 0.1 % (0.2-1.2); Eosinophils Percent Auto 0.1 % (0-4.4); Hematocrit 32.5 % (42.0-52.0); Hemoglobin 10.4 g/dL (14.0-18.0); Immature Granulocyte Absolute 0.05 K/mm3 (0.00-0.031); Immature Granulocyte Percent A 0.7 % (0-0.5); Lymphocytes Absolute Auto 0.88 K/mm3 (0.9-3.2); Lymphocytes Percent Auto 12.6 % (18.3-44.2); Mean Corpuscular Volume 96.7 fl (80-100); Mean Platelet Volume 10.6 fl (7.4-10.4); Monocytes Absolute Auto 0.8 K/mm3 (0.1-0.6); Monocytes Percent Auto 12.1 % (2.6-8.5); Neutrophils Absolute Auto 5.2 K/mm3 (1.3-6.7); Neutrophils Percent Auto 74.4 % (45.5-73.1); Platelet Count Result 187 k/mm3 (150-375); Red Blood Count 3.36 M/mm3 (4.6-6.20); Red Cell Distribution Width 14.8 % (11.5-14.5)
[2023-04-21 18:18] LABS: Alanine Aminotransferase 37 U/L (6-50); Albumin Level 3.4 g/dL (3.5-5.1); Alkaline Phosphatase 86 U/L (38-126); Anion Gap 9 mmol/L (8-16); Aspartate Amino Transferase 33 U/L (17-59); Bilirubin,Total 0.5 mg/dL (0.2-1.3); Blood Urea Nitrogen 40 mg/dL (9-20); Calcium 9.9 mg/dL (8.4-10.2); Carbon Dioxide 28 mmol/L (22-30); Chloride 100 mmol/L (98-107); Estimated CRCL calculation 10 ml/min; Estimated Glomerular Filt Rate 7; Glucose 120 mg/dL (65-110); Potassium 3.5 mmol/L (3.4-5.0); Sodium 137 mmol/L (137-145)
[2023-04-21] MEDS: diphenhydrAMINE HCl INJ 50 MG/ML VIAL 25 MG IV PUSH (18:22)
[2023-04-21] MEDS: METOCLOPRAMIDE HCL INJ 10 MG/2 ML VIAL IV PUSH (18:22)
[2023-04-21 18:24] VITALS: BP 215/92; O2SAT 99
[2023-04-21] MEDS: SODIUM CHLORIDE 0.9% IV 500 ML 250 ML IV CONT (18:25)
[2023-04-21 18:32] VITALS: BP 197/93; O2SAT 98
[2023-04-21 19:41] VITALS: BP 193/98; PULSE 73; RESP 19; O2SAT 100
== END 2023-04-21 20:32 | disposition home or self-care (01) ==
PROVIDERS: Nurse Practitioner Family; Emergency Provider Physician Assistant; PCP Family Medicine
DX: R51.9 Headache, unspecified (principal); N18.6 End stage renal disease; E11.22 Type 2 diabetes mellitus with diabetic chronic kidney disease; I13.2 Hypertensive heart and chronic kidney disease with heart failure and with stage 5 chronic kidney disease, or end stage renal disease; I50.32 Chronic diastolic (congestive) heart failure; Z99.2 Dependence on renal dialysis; E03.9 Hypothyroidism, unspecified; E78.00 Pure hypercholesterolemia, unspecified; D64.9 Anemia, unspecified; G47.33 Obstructive sleep apnea (adult) (pediatric); Z95.5 Presence of coronary angioplasty implant and graft; Z96.651 Presence of right artificial knee joint; Z85.528 Personal history of other malignant neoplasm of kidney; Z87.442 Personal history of urinary calculi; Z86.16 Personal history of COVID-19; Z98.42 Cataract extraction status, left eye; Z90.49 Acquired absence of other specified parts of digestive tract; Z90.5 Acquired absence of kidney; Z79.82 Long term (current) use of aspirin; Z79.4 Long term (current) use of insulin; J32.9 Chronic sinusitis, unspecified; R94.31 Abnormal electrocardiogram [ECG] [EKG]
CPT/HCPCS: 36415; 70450; 70496; 70498; 71046; 80053; 85025; 93005; 96361; 96374; 96375; 99284; J1200; J2765; J7040; Q9967

== ENCOUNTER 2023-04-24 16:24 | Inpatient (IN) | payer MEDICARE, SELFPAY ==
[2023-04-24] VITALS (25 sets, daily range): BP systolic 142–222; BP diastolic 46–102; PULSE 29–68; RESP 11–17; TEMP 37.1; O2SAT 97–100
--- NOTE | ~2023-04-24 | CT_ITS ---
EXAMINATION: CT brain wo con DATE: 04/24/2023 23:31 INDICATION: Headache. TECHNIQUE: Computed tomography (CT) of the head was performed without intravenous contrast. The mA wa s adjusted according to patient size. Iterative reconstruction technique was employed. The dose-lengt h product was 605.33 mGy-cm. COMPARISON: Head CT 04/21/2023 FINDINGS: There are scattered areas of low attenuation in the cerebral white matter, which is within normal limits for the patient's age. There is no intracranial hemorrhage, acute infarction, or abnorm al intracranial mass lesion. The ventricles are normal in size. There are likely changes of left ocul ar lens replacement surgery. There is mucosal thickening in the paranasal sinuses. There is thickenin g and sclerosis of the kelley of sphenoid sinus, consistent with chronic sinusitis. The mastoid air ce lls are normal. IMPRESSION: 1. Normal aging brain. 2. Chronic sinusitis. Reviewed, dictated and finalized at location E. ATIONS OFFICER
--- NOTE | ~2023-04-24 | XR_ITS ---
EXAMINATION: XR chest 2V DATE: 04/24/2023 17:55 INDICATION: Chest tightness. TECHNIQUE: Frontal and lateral views of the chest were obtained. COMPARISON: Chest 2 views 04/21/2023 FINDINGS: A calcified right lung nodule is consistent with old granulomatous disease. No pleural effu apoorva or pneumothorax. The heart size is normal. There is internal fixation of the sternum. IMPRESSION: 1. No acute cardiopulmonary disease. Reviewed, dictated and finalized at location E. LE SCHOOL SCIENCE TEACHER
--- NOTE | ~2023-04-24 | CT_ITS ---
EXAMINATION: CT brain wo con DATE: 04/26/2023 21:46 INDICATION: Headache. TECHNIQUE: Computed tomography (CT) of the head was performed without intravenous contrast. The mA wa s adjusted according to patient size. Iterative reconstruction technique was employed. The dose-lengt h product was 681.00 mGy-cm. COMPARISON: Head CT 04/24/2023 FINDINGS: There are scattered areas of low attenuation in the cerebral white matter, which is within normal limits for the patient's age. There is no intracranial hemorrhage, acute infarction, or abnorm al intracranial mass lesion. The ventricles are normal in size. There are likely changes of left ocul ar lens replacement surgery. There is mucosal thickening in the paranasal sinuses. There is sclerosis of the kelley of the sphenoid and posterior ethmoid sinuses, consistent with chronic sinusitis. There are surgical changes of the paranasal sinuses. The mastoid air cells are normal. IMPRESSION: 1. Normal aging brain. 2. Chronic sinusitis. Reviewed, dictated and finalized at location E. TECHNICAL LEAD
--- NOTE | ~2023-04-24 | CT_ITS ---
EXAMINATION: CTA chest DATE: 04/26/2023 21:46 INDICATION: Back pain. Blood pressure discrepancy. Hypertension. TECHNIQUE: Computed tomographic angiography (CTA) of the chest was performed with 100 mL Omnipaque-35 0 intravenous contrast. Automated exposure control and iterative reconstruction technique were employ ed. The dose-length product was 1060.80 mGy-cm. Maximum intensity projection 3D-reconstructions of th e aorta and other arteries were constructed by the technologist on a separate workstation. COMPARISON: Chest CT 11/29/2022, 02/12/2023 FINDINGS: The lungs demonstrate mild atelectasis. Calcified right lung nodules and calcified mediasti nal lymph nodes are consistent with old granulomatous disease. No pleural effusion. The heart size is normal. There is a trace pericardial effusion. Aortic atherosclerosis is noted. There is a large vol ume of ascites. There is free intraperitoneal gas, consistent with peritoneal dialysis. There are fabio nges of cholecystectomy. There are cysts in the kidneys measuring up to 3.4 cm on the left. There are hemorrhagic cysts in the kidneys. There is a 2.9 cm enhancing mass in left kidney upper pole. There is bilateral gynecomastia. There are bridging endplate osteophytes at multiple levels in the spine, c onsistent with diffuse idiopathic skeletal hyperostosis (DISH). There is severe cervical spondylosis. There is an oblique fracture of the sternum with internal fixation. IMPRESSION: 1. Aortic atherosclerosis. No aneurysm or dissection. 2. 2.9 cm enhancing mass in left kidney upper pole, consistent with renal cell carcinoma. Reviewed, dictated and finalized at location E. MIC MAKER DEMONSTRATOR
--- NOTE | 2023-04-24 17:19 | ECG_ITS ---
Measurements Intervals [place] Rate: 61 P: 12 [place]: 147 QRS: -51 QRSD: 97 T: -17 QT: 444 QTc: 448 Interpretive Statements SINUS RHYTHM LEFT ANTERIOR FASCICULAR BLOCK BORDERLINE ST-T WAVE ABNORMALITY- INF/LAT LEADS BASELINE ARTIFACT- I, III, AVR, AVL, V4 ABNORMAL ECG COMPARED TO ECG 04/21/2023 18:42:17 LEFT ANTERIOR FASCICULAR BLOCK NOW PRESENT Electronically Signed On 04-24-2023 18:29:07 POWER PLANT ASSISTANT by Dilan Preciado D.O.
[2023-04-24 17:52] LABS: Basophils Percent Auto 0.2 % (0.2-1.2); Eosinophils Percent Auto 0.2 % (0-4.4); Hematocrit 32.7 % (42.0-52.0); Hemoglobin 10.8 g/dL (14.0-18.0); Immature Granulocyte Absolute 0.07 K/mm3 (0.00-0.031); Immature Granulocyte Percent A 1.1 % (0-0.5); Lymphocytes Absolute Auto 0.73 K/mm3 (0.9-3.2); Lymphocytes Percent Auto 11.6 % (18.3-44.2); Mean Corpuscular Hemoglobin 31.7 pg (26-34); Mean Corpuscular Volume 95.9 fl (80-100); Mean Platelet Volume 10.6 fl (7.4-10.4); Monocytes Absolute Auto 0.8 K/mm3 (0.1-0.6); Monocytes Percent Auto 12.4 % (2.6-8.5); Neutrophils Absolute Auto 4.7 K/mm3 (1.3-6.7); Neutrophils Percent Auto 74.5 % (45.5-73.1); Platelet Count Result 165 k/mm3 (150-375); Red Blood Count 3.41 M/mm3 (4.6-6.20); Red Cell Distribution Width 14.9 % (11.5-14.5); White Blood Count 6.3 K/mm3 (4.5-10.0)
[2023-04-24 18:01] LABS: Alanine Aminotransferase 44 U/L (6-50); Albumin Level 3.5 g/dL (3.5-5.1); Alkaline Phosphatase 89 U/L (38-126); Anion Gap 9 mmol/L (8-16); Aspartate Amino Transferase 38 U/L (17-59); Bilirubin,Total 0.5 mg/dL (0.2-1.3); Blood Urea Nitrogen 45 mg/dL (9-20); Calcium 9.5 mg/dL (8.4-10.2); Carbon Dioxide 29 mmol/L (22-30); Chloride 97 mmol/L (98-107); Estimated CRCL calculation 10 ml/min; Estimated Glomerular Filt Rate 7; Glucose 135 mg/dL (65-110); Lipase 203 U/L (23-300); Potassium 3.4 mmol/L (3.4-5.0); Sodium 135 mmol/L (137-145)
[2023-04-24 18:05] LABS: INR 0.9; Prothrombin Time 12.7 Seconds (11.1-14.7)
[2023-04-24 18:06] LABS: Partial Thromboplastin Time 27.1 SECONDS (22.3-36.8)
[2023-04-24 18:16] LABS: Troponin I 0.086 ng/mL (0.000-0.034)
--- NOTE | 2023-04-24 19:47 | ED.GENADULT ---
HPI - General Adult General Chief complaint: Recheck/Abnormal Lab/Rx Stated complaint: ELEVATED BP Time Seen by Provider: 04/24/23 19:40 History of Present Illness HPI narrative: Patient is a 68-year-old male with end-stage renal disease on daily peritoneal dialysis presents the emergency department this evening due to concern for an elevated blood pressure. Patient states that his optical model maker and tester, Dr. Mccall has changed some of hypertensive medications around and took him off of a few of his medications. Patient states that his blood pressure since yesterday evening has been persistent over 200 systolic. Patient currently is on lisinopril 20 mg daily and carvedilol 25 mg twice a day for his blood pressure. Patient states that these are the only 2 medications he is currently taking for blood pressure and today when he woke up and noticed that his blood pressure is still elevated, he took both of his carvedilol, double the dose of his daily lisinopril and 2 additional Catapres pills which she had left over. Patient states that the Catapres pills are . Patient states that all of these medications did not improve his blood pressure and he finally decided to come into the ED for evaluation. When asked about his headache, patient states that it is a 5 to a 6 and when asked if it is the worse headache of his life he states no. Patient admits to mild chest pain which he rates it a 1/10, however, he states that he always has chest pain due his chronic sternal pain. Patient denies any visual changes, any focal weakness, numbness and tingling. There are no other modifying, alleviating, or precipitating factors at this time. Related Data Home Medications Medication Instructions Recorded Confirmed aspirin 81 mg tablet,delayed 81 mg PO DAILY 02/01/19 04/09/23 release (Sami Low Dose Aspirin) vit C 250 mg-vit E 200 unit-zinc 1 tablet PO Q12H 02/01/19 04/09/23 12.5 mg-copper 1 mm-zwg-gjgutp tablet (ICaps AREDS2 (copper citrate)) blood sugar diagnostic (OneTouch 05/14/19 04/09/23 Ultra Blue Test Strip) carvedilol 25 mg tablet (Coreg) 25 mg PO Q12H 09/06/19 04/09/23 insulin glargine 100 unit/mL (3 40 unit subcut Q12H 10/12/21 04/09/23 mL) subcutaneous pen (Basaglar KwikPen U-100 Insulin) lisinopril 20 mg tablet 20 mg PO HS 08/12/22 04/09/23 potassium chloride 10 mEq 10 meq PO 1400 08/12/22 04/09/23 capsule,extended release cholecalciferol (vitamin D3) 125 125 mcg PO 1400 10/01/22 04/09/23 mcg (5,000 unit) tablet (Vitamin D3) folic acid 0.8 mg-vit B comp with 1 tablet PO DAILY 10/01/22 04/09/23 P-uotc-hdyatzq D3 2,000 unit tablet (Dialyvite 800-Ultra D) furosemide 80 mg tablet 160 mg PO 0900,1400 10/01/22 04/09/23 insulin aspart U-100 100 unit/mL 30 unit subcut TIDWM 10/01/22 04/09/23 (3 mL) subcutaneous pen (Novolog FlexPen U-100 Insulin aspart) tamsulosin 0.4 mg capsule 0.4 mg PO HS 10/01/22 04/09/23 guanfacine 3 mg tablet,extended 1.5 mg PO HS 03/10/23 04/09/23 release 24 hr diphenhydramine 25 2 tablet PO HS 03/12/23 04/09/23 mg-acetaminophen 500 mg tablet (Tylenol PM Extra Strength) pantoprazole 40 mg tablet,delayed 40 mg PO HS 03/12/23 04/09/23 release duloxetine 30 mg capsule,delayed 30 mg PO DAILY depression 04/09/23 04/09/23 release Allergies Allergy/AdvReac Type Severity Reaction Status Date / Time oxycodone Allergy Hallucinati Verified 04/21/23 17:07 ng Review of Systems Review of Systems: All systems are reviewed and are negative unless stated otherwise in the HPI. 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
--- NOTE | 2023-04-24 20:25 | ECG_ITS ---
Measurements Intervals [place] Rate: 55 P: 19 ME: 146 QRS: -53 QRSD: 102 T: 230 QT: 459 QTc: 441 Interpretive Statements SINUS BRADYCARDIA ATRIAL PREMATURE COMPLEX INCOMPLETE RIGHT BUNDLE BRANCH BLOCK LEFT ANTERIOR FASCICULAR BLOCK CANNOT RULE OUT SEPTAL INFARCT, AGE INDETERMINATE BORDERLINE ST-T WAVE ABNORMALITY- INF/LAT LEADS BASELINE ARTIFACT- I, II, III, AVR, AVL, AVF, V1, V4-V6 ABNORMAL ECG COMPARED TO ECG 04/24/2023 17:24:45 SINUS BRADYCARDIA NOW PRESENT Electronically Signed On 04-25-2023 6:29:54 INSPECTOR RADAR AND ELECTRONICS by Dilan Preciado D.O.
[2023-04-24 21:25] LABS: Troponin I 0.088 ng/mL (0.000-0.034)
--- NOTE | 2023-04-24 21:26 | PC.NURSE ---
pt used call light continuously several times. Pt requested doctor needs to come in here right now, I have been here for hours and have not seen anyone, no doctor or nurse or anyone . This rn spoke with patient and stated they were brought back to a room as quickly as they could have been. pt stated this sucks, and you suck I have a headache and need something for pain . This rn spoke with edp dr. denney. Edp dr. denney spoke with patient and did an assessment. This Rn obtained a 3hour troponin, started an IV, and completed an EKG. Pt stated I do not need to put a gown on, it won't change anything and I could lay here naked and nothing would happen . This Rn educated patient that he had the right to refuse wearing a gown, but it was hospital protocol to have patients wear a gown. Pt stated well this sucks, my head hurts .
[2023-04-24] MEDS: ACETAMINOPHEN 325 MG TABLET 650 MG PO (21:47)
[2023-04-24] MEDS: niCARdipine 20 MG/200 ML 20 MG/200 ML BAG 50 MG IV CONT (21:48)
--- NOTE | 2023-04-24 21:52 | PC.NURSE ---
this rn did not administer aspirin at this time. edp dr. jumana busch to not give aspirin at this time, no dose necessary. this rn used closed loop communication to confirm no aspirin given at this time.
--- NOTE | 2023-04-24 23:01 | PM.IMHP ---
H&P: HPI History of Present Illness Date/Time: 04/24/23 23:01 Chief Complaint: high blood pressure Narrative: This is a 68-year-old male with past medical history significant for end-stage renal disease on peritoneal dialysis, hypertension, benign prostatic hyperplasia. Patient presents to the emergency room due to high blood pressure with systolic in the 200's. has had headache denies any shortness of breath, chest pain abdominal pain no nausea no vomiting, No syncope or near syncope no lightheadedness. Preliminary workup has been essentially nonrevealing. Patient is been admitted for further evaluation management and treatment. EXAMINATION: XR chest 2V DATE: 04/24/2023 17:55 INDICATION: Chest tightness. TECHNIQUE: Frontal and lateral views of the chest were obtained. COMPARISON: Chest 2 views 04/21/2023 FINDINGS: A calcified right lung nodule is consistent with old granulomatous disease. No pleural effusion or pneumothorax. The heart size is normal. There is internal fixation of the sternum. IMPRESSION: 1. No acute cardiopulmonary disease. EXAMINATION: CT brain wo con DATE: 04/24/2023 23:31 INDICATION: Headache. TECHNIQUE: Computed tomography (CT) of the head was performed without intravenous contrast. The mA was adjusted according to patient size. Iterative reconstruction technique was employed. The dose-length product was 605.33 mGy-cm. COMPARISON: Head CT 04/21/2023 FINDINGS: There are scattered areas of low attenuation in the cerebral white matter, which is within normal limits for the patient's age. There is no intracranial hemorrhage, acute infarction, or abnormal intracranial mass lesion. The ventricles are normal in size. There are likely changes of left ocular lens replacement surgery. There is mucosal thickening in the paranasal sinuses. There is thickening and sclerosis of the kelley of sphenoid sinus, consistent with chronic sinusitis. The mastoid air cells are normal. IMPRESSION: 1. Normal aging brain. 2. Chronic sinusitis. Review of Systems Review of Systems: High blood pressure, headache Constitutional: Constitutional: Denies chills, Denies fatigue, Denies fever(s), Denies malaise and Denies weakness Eyes: Eyes: Denies change in vision ENT: Denies dysphagia, Denies vertigo, Denies dizziness and Denies odynophagia Cardiovascular: Cardiovascular: Denies chest pain, Denies radiating jaw, neck or arm pain and Denies palpitations Respiratory: Respiratory: Denies cough, Denies dyspnea and Denies wheezing Gastrointestinal: Gastrointestinal: Denies abdominal pain, Denies dyspepsia, Denies heartburn, Denies diarrhea, Denies nausea and Denies vomiting Genitourinary: Genitourinary: Denies dysuria Musculoskeletal: Musculoskeletal: Denies arthralgias and Denies joint swelling Integumentary/Breasts: Skin/Breast: Denies rash Neurologic: Denies vertigo, Denies dizziness, Denies focal weakness and Denies Sensory deficit (Neuro) Psychiatric: Psychiatric: Reports no additional psychiatric complaints and Reports as per HPI Endocrine: Endocrine: Denies cold intolerance, Denies fatigue, Denies flushing, Denies heat intolerance, Denies polyphagia, Denies polydipsia and Denies palpitations Hematologic/Lymphatic: Hematologic/Lymphatic: Reports no additional hematologic/lymphatic complaints and Reports as per HPI Allergic/Immunologic: Allergic/Immunologic: Reports no additional allergic/immunologic complaints and Reports as per HPI PMFSH Past Medical History Medical History (Updated 04/25/23 @ 02:45 by Marvin Dobson MD) 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
--- NOTE | 2023-04-24 23:19 | ECG_ITS ---
Measurements Intervals [place] Rate: 64 P: 7 [place]: 137 QRS: -49 QRSD: 106 T: 29 QT: 428 QTc: 444 Interpretive Statements SINUS RHYTHM INCOMPLETE RIGHT BUNDLE BRANCH BLOCK LEFT ANTERIOR FASCICULAR BLOCK CANNOT RULE OUT SEPTAL INFARCT, AGE INDETERMINATE T WAVE ABNORMALITY IN ANTERIOR LEADS- CONSIDER ISCHEMIA BASELINE ARTIFACT- I, III, AVL ABNORMAL ECG COMPARED TO ECG 04/24/2023 20:42:28 SINUS RHYTHM NOW PRESENT T WAVE ABNORMALITY NOW PRESENT Electronically Signed On 04-25-2023 6:34:52 COPY ROOM TECHNICIAN by Dilan Preciado D.O.
[2023-04-24 23:56] LABS: Troponin I 0.095 ng/mL (0.000-0.034)
[2023-04-25] VITALS (28 sets, daily range): BP systolic 157–207; BP diastolic 64–85; PULSE 53–78; RESP 12–21; TEMP 36.5–36.9; O2SAT 96–100
--- NOTE | 2023-04-25 | ADMGEN ---
This patient, Kendall Carl, was admitted to Intensive Care Unit-6. Patient/family oriented to hospital policies and general routines including ID bracelet, bed and alarms, visiting hours, pain management, procedures, bathroom and other care routines, personal items, smoking policy, room service/diet, and visiting hours. Information on how to activate the Rapid Response Team has been discussed. Patient/Family are encouraged to report perceived risks to care and to ask questions if they do not understand what they are told or what they should do.
[2023-04-25] MEDS: cloNIDine 0.1 MG/24 HR PATCH 1 PATCH TRANSDERM (04:43)
[2023-04-25] MEDS: carvediloL 25 MG TABLET PO ×2 (06:41→19:38)
[2023-04-25] MEDS: traMADol HCL (*CRX) 50 MG TABLET PO ×3 (06:41→19:39)
[2023-04-25] MEDS: LEVOTHYROXINE SODIUM 112 MCG TABLET PO (06:41)
--- NOTE | 2023-04-25 08:19 | WPDCNINT ---
Assessment and Plan Assessment and plan (1) Hypertensive urgency: Code(s): I16.0 - Hypertensive urgency Status: Acute Assessment and Plan: 04/23: Patient presented with hypertensive urgency, along with headaches and shortness of breath, in the ER blood pressures were 222/99 and patient was started on nicardipine infusion transfer the ICU. Upon arrival to the ICU patient's blood pressures were in the 150s and nicardipine infusion was stopped. Blood pressure started to trend up and was given is Coreg earlier this morning, placed on a clonidine patch. -patient was on diltiazem and guanfacine on his last admission which was discontinued prior to admission. -will consult cardiology as they had seen him on his last admission and managing blood pressure medications. -patient has orthostatic hypotension with unacceptably high blood pressures when laying down and a big drop in blood pressures when he stands up. -patient was sent home on midodrine which was discontinued because he felt sick to his stomach. -continue Coreg, lisinopril, Lasix at this time --have ordered p.r.n. hydralazine and will give a dose of lisinopril 10 mg p.o. x1 (2) End-stage renal disease on peritoneal dialysis: Code(s): N18.6 - End stage renal disease; Z99.2 - Dependence on renal dialysis Status: Acute Assessment and Plan: End-stage renal disease on peritoneal dialysis, follows with Dr. Mccall -consult Nephrology -peritoneal dialysis per Nephrology (3) Depression: Code(s): F32.A - Depression, unspecified Status: Inactive Assessment and Plan: Continue duloxetine (4) Hypothyroid: Code(s): E03.9 - Hypothyroidism, unspecified Status: Acute Assessment and Plan: Continue levothyroxine (5) Chronic GERD: Code(s): K21.9 - Gastro-esophageal reflux disease without esophagitis Status: Inactive Assessment and Plan: Continue Protonix Plan DVT prophylaxis: Heparin SQ Stress ulcer prophylaxis: Protonix Nutrition: Renal dialysis diet Code Status: Full code Critical Care Time Spent: 54 minutes Discussed with patient and his at bedside and updated them with patient's condition and plan of care. A lot of information was derived from the patient has not been wearing his abdominal binder as he feels it is too tight. They tried a larger size with that was too broad and was uncomfortable. I answered all questions Due to a high probability of clinically significant, life threatening deterioration, the patient required my highest level of preparedness to intervene emergently and I personally spent this critical care time directly and personally managing the patient. This critical care time included obtaining a history; examining the patient; pulse oximetry; ordering and review of studies; arranging urgent treatment with development of a management plan; evaluation of patient's response to treatment; frequent reassessment; and discussions with other providers. It was exclusive of separately billable procedures and treating other patients and teaching time. Please see Assessment and Plan section and the rest of the note for further information on patient assessment and treatment This dictation may have been done utilizing a voice recognition system. Attempts have been made to correct errors. However, there may be uncorrected grammatical, spelling, and recognitions errors present. Inside Barrel Polisher Consult Note Consult date: 04/25/23 Reason for consult: Hypertensive crisis/urgency, headaches, shortness of breath HPI: Kendall Carl is a 68 year old male with significant past medical history of end-stage renal disease on peritoneal dialysis, obstructive sleep apnea, insulin-dependent diabetes, anxiety, hyperlipidemia, prior kidney cancer, history of pituitary tumor, BPH,, recently admitted to [facility] from 03/11/2023 to 03/22/2023 with hypertensive crisis/urgency, chest pain, ab
[2023-04-25] MEDS: VITAMIN B CMPLX/VIT C/FOLIC AC 1 CAPSULE 1 CAP PO (08:36)
[2023-04-25] MEDS: KETOROLAC 0.5% OP SOLN 5 ML BOTTLE 1 DROP RIGHT EYE (08:36)
[2023-04-25] MEDS: DULoxetine HCL 30 MG CAPSULE.DR PO (08:36)
[2023-04-25] MEDS: ASPIRIN 81 MG ENTERIC TABLET PO (08:40)
[2023-04-25] MEDS: lisinopriL 10 MG TABLET PO (08:40)
[2023-04-25] MEDS: FUROSEMIDE 80 MG TABLET 160 MG PO ×2 (08:40→15:40)
--- NOTE | 2023-04-25 09:03 | PM.CNNEP ---
Assessment and Plan Assessment and plan (1) End stage renal disease: Code(s): N18.6 - End stage renal disease Status: Chronic Assessment and Plan: resume CCPD tonight follow electrolytes, volume status, and clearance (2) Hypertensive urgency: Code(s): I16.0 - Hypertensive urgency Status: Acute Assessment and Plan: presented to ER with significantly elevate BP (systolic > 200) in association with headaches and shortness of breath initiated on nifcardipine gtt with transfer to ICU by time of arrival to ICU, systolic BPs in the 150s so nicardipine gtt stopped BP has been trending up so AM meds (carvedilol and lisinopril) given and clonidine patch started as noted on last hospitalization, this is complicated by known history of significant/symptomatic orthostatic hypotension orthostasis did improve with compressions stockings and abdominal binder use he was on midodrine + florinef + salt tabs at one point -- florinef discontinued since he does not make much urine; salt tabs stopped in favor of increased oral intake of salt foods; midodrine changed to PRN but was eventually discontinued. however, issues with orthostatic hypotension appears to have resolved at this time Cardiology consulted (3) Anemia: Code(s): D64.9 - Anemia, unspecified Status: Chronic Assessment and Plan: H/H at goal for ESRD follow trend of H/H start Epogen if Hgb drops below 10 (4) Chronic GERD: Code(s): K21.9 - Gastro-esophageal reflux disease without esophagitis Status: Chronic Assessment and Plan: on PPI (protonix) (5) Diabetes mellitus: Code(s): E11.9 - Type 2 diabetes mellitus without complications Status: Chronic Assessment and Plan: follow accu-cheks glycemic control per project manager process development/hospitalist I will continue to follow patient with you while he remains hospitalized and make further recommendations during his hospital course. Thank you for allowing me to participate in the care this patient. History of Present Illness Reason for Consult Consult date: 04/25/23 Reason for consult: end stage renal disease Chief Complaint Chief complaint: Hypertensive Emergency History of Present Illness Narrative: The patient is a 68-year-old male with a past medical history as outlined below who presented to [facility] Emergency room with complaints high blood pressure. The patient reported that he noted by his home blood pressure readings that his systolic BP was persistently greater than 200. he took his home medications including some old clonidine pills that he had but his blood pressure continued to rise/worsen. Due to the worsening blood pressure readings in general, he presented to the emergency room for further assessment Workup and evaluation emergency confirmed his elevated blood pressure with a reading of 222/99. From review of the ER record, he did not receive any IV hydralazine or labetalol or any other medications but apparently was just initiated on nicardipine infusion for better blood pressure control. Routine blood test demonstrated labs consistent with his known history of end-stage renal disease with no critical electrolyte abnormalities noted. His troponins were mildly elevated but flat and a CT scan of his head was otherwise negative for any acute intracranial process. Given the ongoing need of a nicardipine infusion for better blood pressure control, he was subsequently admitted to the intensive care unit for further evaluation and therapy. Following his admission to the ICU, the patient's blood pressure had improved to the 150 systolic so his nicardipine infusion was discontinued. However, by early this morning, his blood pressure started creeping back up and he was resumed on his home medications in addition to a clonidine patch. Renal consultation was requested due to his end-stage renal disease. The patient norm
[2023-04-25] MEDS: INSULIN GLARGINE (*BKC) 100 UNITS/ML 40 UNITS SUB-Q ×2 (09:12→19:44)
[2023-04-25] MEDS: HEPARIN SODIUM 5,000 UNITS/ML VIAL 5000 UNITS SUB-Q ×2 (09:51→19:44)
[2023-04-25] MEDS: hydrALAZINE HCL 20 MG/ML VIAL 10 MG IV PUSH ×2 (09:52→17:03)
--- NOTE | 2023-04-25 10:10 | PM.CNCAR ---
Assessment and Plan Assessment and plan (1) Chronic diastolic (congestive) heart failure: Code(s): I50.32 - Chronic diastolic (congestive) heart failure Status: Acute Assessment and Plan: No signs or symptoms of decompensated heart failure at this time. Continue current medical regimen. (2) Hypertension: Code(s): I10 - Essential (primary) hypertension Status: Chronic Assessment and Plan: Presenting with hypertensive urgency. Difficult to manage lately because of symptomatic orthostatic hypotension. Continue carvedilol 25 mg b.i.d. Will increase lisinopril to 40 mg daily Transdermal clonidine Would add calcium channel chanel if his blood pressure remains elevated (3) Hyperlipemia: Code(s): E78.5 - Hyperlipidemia, unspecified Status: Acute Assessment and Plan: Statin was recently stopped because he was found to have liver cirrhosis (4) CAD (coronary artery disease): Code(s): I25.10 - Atherosclerotic heart disease of [place] coronary artery without angina pectoris Status: Acute Assessment and Plan: Stable, no anginal symptoms. Continue aspirin History of Present Illness History of Present Illness Consult date/time: 04/25/23 10:10 Reason For Visit: Hypertensive Emergency Narrative: Kendall Carl is a 68 year old male with end stage renal disease on peritoneal dialysis, hypertension, diabetes, and coronary artery disease with stenting of the LAD done at [facility] a couple of years ago. Came to the emergency department with complaints of headache and shortness of breath. He was found to be significantly hypertension with a blood pressure of 222/99 mmHg. During his last admission to [facility], he developed significant symptomatic orthostatic hypotension which was difficult to manage given his significant supine hypertension. His is at the bedside and states that the patient stop taking the midodrine and fludrocortisone prescribed to him following discharge from his last hospitalization. She states that she has not been diligent about taking his blood pressure, but she does tell me that 1 morning she took his blood pressure prior to administering his medications and his systolic blood pressure was 90 mmHg. Overall, patient states that he has not had problems with orthostatic symptoms since discharge from his last hospitalization. He denies any chest pain, palpitations, unusual swelling, syncope. Currently, he is lying comfortably in bed in the ICU and his systolic blood pressure is 167mmHg. 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 velocity Left kidney mass Neoplasm of kidney SHABNAM (obstructive sleep apnea) Pituitary tumor Rhinitis Urinary tract infection Viral URI Surgical History Surgical History Adenoma of pituitary History of cholecystectomy History of partial nephrectomy Status post left cataract extraction Status post right knee replacement Status post total right knee replacement Stented coronary artery Family History Family History Mother Hypertension Cerebrovascular accident Aneurysm Father Family history of malignant neoplasm Carcinoma of colon Social History Social History Social History: Bridgett
[2023-04-25] MEDS: HYDROcodone/acetaminophen (*CRX) 5-325 MG TABLET 1 TAB PO (11:18)
[2023-04-25 11:47] LABS: Glucose Point of Care 144 mg/dl (65-105)
[2023-04-25] MEDS: CHOLECALCIFEROL 1,000 UNITS TABLET 5000 UNITS PO (12:57)
[2023-04-25] MEDS: hydrALAZINE HCL 20 MG/ML VIAL IV PUSH (14:17)
--- NOTE | 2023-04-25 14:48 | ECG_ITS ---
Measurements Intervals Alvin Rate: 63 P: 31 NJ: 162 QRS: -48 QRSD: 98 T: -38 QT: 440 QTc: 451 Interpretive Statements SINUS RHYTHM INCOMPLETE RIGHT BUNDLE BRANCH BLOCK LEFT ANTERIOR FASCICULAR BLOCK CANNOT RULE OUT SEPTAL INFARCT, AGE INDETERMINATE NONSPECIFIC T-WAVE ABNORMALITY- DIFFUSE LEADS BASELINE ARTIFACT- I, II, III, AVR, AVL, AVF ABNORMAL ECG COMPARED TO ECG 04/24/2023 23:22:02 NO SIGNIFICANT CHANGES Electronically Signed On 04-26-2023 9:42:49 WEB PRESSMAN by Dilan Preciado D.O.
--- NOTE | 2023-04-25 15:13 | PC.NURSE ---
Patient turning off own bed alarm and pacing room. States You better do something soon or I'm going to walk out of here. I've been sitting here all day and you all haven't done st. Explained to patient that we have been giving medication to manage his blood pressure and pain throughout the day. Patient has received one dose of norco, after which he felt nauseated and lightheaded. He's also been given 2 doses of ultram, the first of which worked. The second dose, given this afternoon, had no effect on patient's headache. Explained to patient that hypertension can cause headaches and as blood pressure returns to normal, nausea and lightheadedness are common symptoms. Patient encouraged to not ambulate without assistance. Bed alarm applied but patient has been noted to turn it off. Patient refuses to stay in bed. Dr. Keller notified and awaiting orders.
[2023-04-25 15:27] LABS: Glucose Point of Care 145 mg/dl (65-105)
[2023-04-25] MEDS: KETOROLAC 15 MG/ML VIAL (*BKC) IV PUSH (15:37)
[2023-04-25] MEDS: diphenhydrAMINE HCl INJ 50 MG/ML VIAL 25 MG IV PUSH (15:39)
--- NOTE | 2023-04-25 18:53 | PC.NURSE ---
Patient complains of difficulty voiding. No retained urine noted on bladder scan. Bladder scan volume:0ml. Patient states sometimes takes flomax at home. Notified that flomax has been ordered here and that patient will receive a dose tonight.
[2023-04-25] MEDS: lisinopriL 20 MG TABLET 40 MG PO (19:39)
[2023-04-25] MEDS: TAMSULOSIN HCL 0.4 MG CAPSULE PO (19:40)
[2023-04-25] MEDS: PANTOPRAZOLE 40 MG TABLET PO (19:40)
[2023-04-25 19:55] LABS: Glucose Point of Care 199 mg/dl (65-105)
[2023-04-25] MEDS: ONDANSETRON INJ 4 MG/2 ML VIAL IV PUSH (20:23)
[2023-04-25] MEDS: LORazepam (*CRX) 0.5 MG TABLET PO (20:27)
[2023-04-25] MEDS: traZODone HCL 50 MG TABLET PO (20:27)
[2023-04-26] VITALS (20 sets, daily range): BP systolic 145–188; BP diastolic 65–102; PULSE 50–72; RESP 10–19; TEMP 36.2–36.7; O2SAT 96–100
[2023-04-26] MEDS: LEVOTHYROXINE SODIUM 112 MCG TABLET PO (06:10)
[2023-04-26 06:45] LABS: Eosinophils Percent Auto 0.2 % (0-4.4); Hematocrit 30.5 % (42.0-52.0); Immature Granulocyte Absolute 0.08 K/mm3 (0.00-0.031); Immature Granulocyte Percent A 1.7 % (0-0.5); Lymphocytes Absolute Auto 0.66 K/mm3 (0.9-3.2); Lymphocytes Percent Auto 14.1 % (18.3-44.2); Mean Corpuscular HGB Conc 32.8 g/dl (32-36); Mean Corpuscular Hemoglobin 31.3 pg (26-34); Mean Corpuscular Volume 95.3 fl (80-100); Mean Platelet Volume 10.7 fl (7.4-10.4); Monocytes Absolute Auto 0.6 K/mm3 (0.1-0.6); Monocytes Percent Auto 13.5 % (2.6-8.5); Neutrophils Absolute Auto 3.3 K/mm3 (1.3-6.7); Neutrophils Percent Auto 70.5 % (45.5-73.1); Platelet Count Result 140 k/mm3 (150-375); Red Cell Distribution Width 14.9 % (11.5-14.5); White Blood Count 4.7 K/mm3 (4.5-10.0)
[2023-04-26 06:56] LABS: Alanine Aminotransferase 43 U/L (6-50); Alkaline Phosphatase 65 U/L (38-126); Anion Gap 7 mmol/L (8-16); Aspartate Amino Transferase 29 U/L (17-59); Bilirubin,Total 0.6 mg/dL (0.2-1.3); Blood Urea Nitrogen 48 mg/dL (9-20); Calcium 9.3 mg/dL (8.4-10.2); Carbon Dioxide 30 mmol/L (22-30); Chloride 100 mmol/L (98-107); Estimated CRCL calculation 9 ml/min; Estimated Glomerular Filt Rate 6; Glucose 83 mg/dL (65-110); Magnesium 1.7 mg/dL (1.6-2.3); Phosphorus 5.5 mg/dL (2.5-4.5); Potassium 3.2 mmol/L (3.4-5.0); Sodium 137 mmol/L (137-145)
[2023-04-26 07:27] LABS: Hepatitis B Surface Antigen Negative (Negative)
[2023-04-26 07:44] LABS: Hepatitis B Surface Anti Res Negative
[2023-04-26 08:13] LABS: Glucose Point of Care 63 mg/dl (65-105)
[2023-04-26 08:31] LABS: Glucose Point of Care 83 mg/dl (65-105)
[2023-04-26] MEDS: FUROSEMIDE 80 MG TABLET 160 MG PO ×2 (08:46→18:13)
[2023-04-26] MEDS: VITAMIN B CMPLX/VIT C/FOLIC AC 1 CAPSULE 1 CAP PO (08:46)
[2023-04-26] MEDS: HEPARIN SODIUM 5,000 UNITS/ML VIAL 5000 UNITS SUB-Q ×2 (08:46→21:51)
[2023-04-26] MEDS: ASPIRIN 81 MG ENTERIC TABLET PO (08:47)
[2023-04-26] MEDS: carvediloL 25 MG TABLET PO ×2 (08:47→21:51)
[2023-04-26] MEDS: DULoxetine HCL 30 MG CAPSULE.DR PO (08:47)
[2023-04-26] MEDS: hydrALAZINE HCL 20 MG/ML VIAL 10 MG IV PUSH (08:47)
[2023-04-26] MEDS: ACETAMINOPHEN 325 MG TABLET 650 MG PO ×2 (09:12→18:13)
--- NOTE | 2023-04-26 10:47 | P.PNNP_ITS ---
Progress Note: A&P Assessment and Plan (1) End stage renal disease: Code(s): N18.6 - End stage renal disease Status: Chronic Assessment and Plan: * the patient is on peritoneal dialysis. Fluid is clear in flows are good. * 2L removed. * Potassium is a little low. Will supplement this. * Bicarbonate is good. BUN is well controlled. * Volume status looks okay (2) Hypertensive urgency: Code(s): I16.0 - Hypertensive urgency Status: Acute Assessment and Plan: * presented to ER with significantly elevate BP (systolic > 200) in association with headaches and shortness of breath * initiated on nicardipine gtt with transfer to ICU * the nicardipine drip has Been stopped because the blood pressure has gradually improved. * We want to control blood pressure but not to normal levels because he does have the orthostatic drop. * He is currently on a clonidine patch was just placed yesterday, lisinopril 40mg in the evening, and carvedilol 25mg twice a day. * His blood pressure still up and down. He responds to hydralazine but that just gives him a headache. * Will start nifedipine 30mg a day. * Patient and Mrs. Carl were advised to try to stay on the same medicine regimen. Medicines are frequently discontinued because of side effects. Doing this with antihypertensives tends to create a roller coaster effect. Will try to stick to long acting medication to try to reduce the roller coaster effect but the medicines will have to stay on board to see how they are doing. * Cardiology consulted (3) Anemia: Code(s): D64.9 - Anemia, unspecified Status: Chronic Assessment and Plan: * H/H at goal for ESRD * Hemoglobin is 10 * start Epogen if Hgb drops below 10. * Hold off on this for now because of the blood pressure. (4) Chronic GERD: Code(s): K21.9 - Gastro-esophageal reflux disease without esophagitis Status: Chronic Assessment and Plan: * on PPI (protonix) (5) Diabetes mellitus: Code(s): E11.9 - Type 2 diabetes mellitus without complications Status: Chronic Assessment and Plan: * follow accu-cheks * glycemic control per vault person/hospitalist Subjective Date/time seen: 04/26/23 10:47 Interval history: Patient is feeling better. Wants to get up and get around. He is on Peritoneal dialysis and tolerating it well. he was seen at 9:15 a.m. Review of Systems Cardiovascular: Cardiovascular: Reports no additional cardiovascular complaints Respiratory: Respiratory: Reports no additional respiratory complaints Gastrointestinal: Gastrointestinal: Reports no additional gastrointestinal complaints Genitourinary: Genitourinary: Reports no additional male genitourinary complaints Exam Narrative: WDWN in NAD skin no rash head ncat lungs clear cor reg no rub abd BS+ nontender and soft ext no edema. Objective Data Vital Signs Vital Signs: Vital Signs - 24 hr 04/25/23 11:26 04/25/23 14:00 04/25/23 12:00 Temperature 98.1 F Pulse Rate 62 69 60 Respiratory Rate 20 19 Blood Pressure 188/80 H 207/84 H Pulse Oximetry 100 99 Oxygen Delivery 04/25/23 12:00 04/25/23 15:58 04/25/23 17:00 Temperature 98.0 F Pulse Rate 60
--- NOTE | 2023-04-26 10:47 | PM.PNNEP ---
Progress Note: A&P Assessment and Plan (1) End stage renal disease: Code(s): N18.6 - End stage renal disease Status: Chronic Assessment and Plan: the patient is on peritoneal dialysis. Fluid is clear in flows are good. 2L removed. Potassium is a little low. Will supplement this. Bicarbonate is good. BUN is well controlled. Volume status looks okay (2) Hypertensive urgency: Code(s): I16.0 - Hypertensive urgency Status: Acute Assessment and Plan: presented to ER with significantly elevate BP (systolic > 200) in association with headaches and shortness of breath initiated on nicardipine gtt with transfer to ICU the nicardipine drip has Been stopped because the blood pressure has gradually improved. We want to control blood pressure but not to normal levels because he does have the orthostatic drop. He is currently on a clonidine patch was just placed yesterday, lisinopril 40mg in the evening, and carvedilol 25mg twice a day. His blood pressure still up and down. He responds to hydralazine but that just gives him a headache. Will start nifedipine 30mg a day. Patient and Mrs. Carl were advised to try to stay on the same medicine regimen. Medicines are frequently discontinued because of side effects. Doing this with antihypertensives tends to create a roller coaster effect. Will try to stick to long acting medication to try to reduce the roller coaster effect but the medicines will have to stay on board to see how they are doing. Cardiology consulted (3) Anemia: Code(s): D64.9 - Anemia, unspecified Status: Chronic Assessment and Plan: H/H at goal for ESRD Hemoglobin is 10 start Epogen if Hgb drops below 10. Hold off on this for now because of the blood pressure. (4) Chronic GERD: Code(s): K21.9 - Gastro-esophageal reflux disease without esophagitis Status: Chronic Assessment and Plan: on PPI (protonix) (5) Diabetes mellitus: Code(s): E11.9 - Type 2 diabetes mellitus without complications Status: Chronic Assessment and Plan: follow accu-cheks glycemic control per nurse orthopaedic/hospitalist Subjective Date/time seen: 04/26/23 10:47 Interval history: Patient is feeling better. Wants to get up and get around. He is on Peritoneal dialysis and tolerating it well. he was seen at 9:15 a.m. Review of Systems Cardiovascular: Cardiovascular: Reports no additional cardiovascular complaints Respiratory: Respiratory: Reports no additional respiratory complaints Gastrointestinal: Gastrointestinal: Reports no additional gastrointestinal complaints Genitourinary: Genitourinary: Reports no additional male genitourinary complaints Exam Narrative: WDWN in NAD skin no rash head ncat lungs clear cor reg no rub abd BS+ nontender and soft ext no edema. Objective Data Vital Signs Vital Signs: Vital Signs - 24 hr 04/25/23 11:26 04/25/23 14:00 04/25/23 12:00 Temperature 98.1 F Pulse Rate 62 69 60 Respiratory Rate 20 19 Blood Pressure 188/80 H 207/84 H Pulse Oximetry 100 99 Oxygen Delivery 04/25/23 12:00 04/25/23 15:58 04/25/23 17:00 Temperature 98.0 F Pulse Rate 60 61 78 Respiratory Rate 13 19 20 Blood Pressure 184/76 H 201/85 H Pulse Oximetry 99 99 99 Oxygen Delivery Room Air 04/25/23 16:00 04/25/23 16:00 04/25/23 15:00 Temperature Pulse Rate 63 63 70 Respiratory Rate 13 14 Blood Pressure 178/77 H Pulse Oximetry 99 99 Oxygen Delivery Room Air 04/25/23 18:00 04/25/23 18:30 04/25/23 19:38 Temperature 98.0 F Pulse Rate 63 78 68 Respiratory Rate 20 Blood Pressure 201/85 H Pulse Oximetry Oxygen Delivery Room Air 04/25/23 20:00 04/25/23 20:00 04/25/23 20:00 Temperature 98.4 F Pulse Rate 65 65 Respiratory Rate 16 Blood Pressure 178/73 H Pulse Oximetry 100 Oxygen Delivery Room Air
--- NOTE | 2023-04-26 10:56 | PM.PNCARD ---
Progress Note: A&P Assessment and Plan (1) Hypertensive urgency: Code(s): I16.0 - Hypertensive urgency Status: Acute Assessment and Plan: His hypertension will be difficult to manage because of his chronic orthostasis, therefore, we will likely never be able to get his blood pressures to normal range. Continue Coreg 25mg BID Continue Lasix 160mg BID Continue Clonidine patch. Continue Lisinopril 40mg Daily. Agree with Dr. Mccall on starting Nifedipine. I agree with Dr. Mccall that the patient needs to try to stay on the same medication regimen and be consistent with it and avoid frequent medication changes. (2) Chronic diastolic (congestive) heart failure: Code(s): I50.32 - Chronic diastolic (congestive) heart failure Status: Acute Assessment and Plan: No signs or symptoms of decompensated heart failure at this time.? Continue current medical regimen. (3) CAD (coronary artery disease): Code(s): I25.10 - Atherosclerotic heart disease of [place] coronary artery without angina pectoris Status: Acute Assessment and Plan: Stable, no anginal symptoms.? Continue aspirin Subjective Date/time seen: 04/26/23 10:56 Interval history: Reason for visit: Hypertensive urgency HPI: Kendall Carl is a 68 year old male with end stage renal disease on peritoneal dialysis, hypertension, diabetes, and coronary artery disease with stenting of the LAD done at [facility] a couple of years ago.? Came to the emergency department with complaints of headache and shortness of breath.? He was found to be significantly hypertension with a blood pressure of 222/99 mmHg.? During his last admission to [facility], he developed significant symptomatic orthostatic hypotension which was difficult to manage given his significant supine hypertension.? His is at the bedside and states that the patient stop taking the midodrine and fludrocortisone prescribed to him following discharge from his last hospitalization.? She states that she has not been diligent about taking his blood pressure, but she does tell me that 1 morning she took his blood pressure prior to administering his medications and his systolic blood pressure was 90 mmHg.? Overall, patient states that he has not had problems with orthostatic symptoms since discharge from his last hospitalization.? He denies any chest pain, palpitations, unusual swelling, syncope.? Currently, he is lying comfortably in bed in the ICU and his systolic blood pressure is 167mmHg. Date of service 04/25: He is feeling better. Had a headache this morning. Still getting IV PRN Hydralazine, but blood pressures are looking better this morning. Review of Systems Review of Systems: All systems reviewed & are unremarkable except as noted in HPI and below (HPI) Exam Const: General: comfortable and no acute distress Eyes: General: appearance normal, both eyes and all related structures Sclera: sclerae normal Resp: Effort & Inspection: normal respiratory effort Cardio: Rate: regular rate Rhythm: regular rhythm Skin: General skin exam: normal color Neuro: Speech: normal speech Psych: Mental Status: mental status grossly normal Affect: normal affect Objective Data Vital Signs Vital Signs: Vital Signs - 24 hr 04/25/23 11:26 04/25/23 14:00 04/25/23 12:00 Temperature 36.7 C Pulse Rate 62 69 60 Respiratory Rate 20 19 Blood Pressure 188/80 H 207/84 H Pulse Oximetry 100 99 Oxygen Delivery 04/25/23 12:00 04/25/23 15:58 04/25/23 17:00 Temperature 36.7 C Pulse Rate 60 61 78 Respiratory Rate 13 19 20 Blood Pressure 184/76 H 201/85 H Pulse Oximetry 99 99 99 Oxygen Delivery Room Air 04/25/23 16:00 04/25/23 16:00 04/25/23 15:00 Temperature Pulse Rate 63 63 70 Respiratory Rate 13 14 Blood Pressure 178/77 H Pulse Oximetry 99 99 Oxygen Delivery Room Air 04/25/23 18:00 04/25/23 18:30 04/25/23 19:38
[2023-04-26] MEDS: NIFEdipine 30 MG TAB.ER.24 PO (11:03)
[2023-04-26] MEDS: traMADol HCL (*CRX) 50 MG TABLET PO ×2 (13:06→19:14)
--- NOTE | 2023-04-26 15:11 | PM.IMPN ---
Progress Note: A&P Assessment and Plan (1) Chronic GERD: Code(s): K21.9 - Gastro-esophageal reflux disease without esophagitis Status: Chronic (2) Chronic diastolic (congestive) heart failure: Code(s): I50.32 - Chronic diastolic (congestive) heart failure Status: Acute (3) Anxiety: Code(s): F41.9 - Anxiety disorder, unspecified Status: Acute (4) Diabetes mellitus: Code(s): E11.9 - Type 2 diabetes mellitus without complications Status: Chronic (5) CAD (coronary artery disease): Code(s): I25.10 - Atherosclerotic heart disease of [place] coronary artery without angina pectoris Status: Acute (6) Hypertensive urgency: Code(s): I16.0 - Hypertensive urgency Status: Acute Plan # hypertensive urgency -patient has severe however blood pressures up to 200 systolic, now improved on the current regimen -blood pressure regimen: Continue lisinopril 40 mg daily, Coreg 25 mg b.i.d., clonidine patch 0.1 milligram, Lasix 160 mg b.i.d., and now adding nifedipine 30 mg daily -patient is having headaches with the p.r.n. hydralazine -off nicardipine drip -antiemetic: P.r.n. Zofran # chronic condition -may continue vitamins: B complex, vitamin-C, folic acid, vitamin-D -insomnia: Trazodone -BPH: Flomax -Code: Protonix -anxiety: P.r.n. Xanax, Cymbalta -hypothyroidism: Synthroid -insulin minute to 2 diabetes: With hyperglycemia decreasing home glargine from 40 units to 20 units b.i.d., a.m. dose held. Continue sliding scale insulin, Accu-Cheks a.c. HS, hypoxia protocol, A1c 8.18 Sep 2021 -ESRD on peritoneal dialysis: Appreciate nephrology consultation, continue nightly peritoneal dialysis. Hypokalemia be monitored by Nephrology. K 3.2 Diet: Renal diet DVT prophylaxis: SubQ heparin Code status: Full code Disposition: Likely home in 2-3 days Time Spent With Patient Time: 35 minutes Subjective Date/time seen: 04/26/23 15:11 Interval history: Patient seen examined. Hypertension urgency appears to be improving blood pressure. He was slightly hypoglycemic this morning with glucose 63 then 83 after diet. We have held his home morning Lantus, will decrease b.i.d. Lantus to 20 units from 40. Patient being downgrade to step-down unit. Blood pressure appears to be better controlled in the 150 systolic off nicardipine drip. Patient continue peritoneal dialysis with Nephrology. We are starting nifedipine, this is on top of clonidine, lisinopril, carvedilol, Lasix. Patient is having some dizziness and nausea despite having stable blood pressure. He denies fever, chills, chest pain, abdominal pain, diarrhea. Review of Systems Review of Systems: 10 point ROS complete, negative other than what is specified in HPI. Exam Narrative: - GENERAL: Pleasant male no acute distress. - EYES: EOMI. Anicteric. - HENT: Moist mucous membranes. - LUNGS: Clear to auscultation bilaterally, no wheezing, rhonchi, or rales. - CARDIOVASCULAR: Regular rate and rhythm. No murmur. No JVD. - ABDOMEN: Soft, non-tender and non-distended. No palpable masses. - EXTREMITIES: No edema. Peripheral pulses 2+. Non-tender. - NEUROLOGIC: No focal neurological deficits. CN II-XII grossly intact. - PSYCHIATRIC: Awake, Alert and oriented x 3. Appropriate mood and affect. - SKIN: No rashes or lesions. Warm. - LYMPH: No cervical lymphadenopathy. Objective Data Vital Signs Vital Signs: Vital Signs - 24 hr 04/25/23 15:58 04/25/23 17:00 04/25/23 16:00 Temperature 36.7 C Pulse Rate 61 78 63 Respiratory Rate 19 20 Blood Pressure 184/76 H 201/85 H Pulse Oximetry 99 99 Oxygen Delivery 04/25/23 16:00 04/25/23 18:00 04/25/23 18:30 Temperature 36.7 C Pulse Rate 63 63 78 Respiratory Rate 13 20 Blood Pressure 201/85 H Pulse Oximetry 99 Oxygen Delivery Room Air Room Air 04/25/23 19:38 04/25/23 20:00 04/25/23 20:00 Temperature 36.9 C Pulse Rate 68 65 65 Respiratory Ra
--- NOTE | 2023-04-26 16:13 | PC.NURSE ---
This patient, Kendall Carl, was transferred to [facility] on 04/26/23 at 1559. Personal belongings sent with patient. Report given to Melany STORY. Appropriate documentation sent with patient.
[2023-04-26] MEDS: KETOROLAC 15 MG/ML VIAL (*BKC) IV PUSH (19:45)
[2023-04-26] MEDS: fentaNYL CITRATE INJ (*CRX) 100 MCG/2 ML VIAL 25 MCG IV PUSH (21:09)
[2023-04-26] MEDS: PANTOPRAZOLE 40 MG TABLET PO (21:51)
[2023-04-26] MEDS: TAMSULOSIN HCL 0.4 MG CAPSULE PO (21:51)
[2023-04-26] MEDS: lisinopriL 20 MG TABLET 40 MG PO (21:51)
[2023-04-26] MEDS: INSULIN ASPART (*BKC) 100 UNITS/ML SUB-Q (21:56)
[2023-04-26] MEDS: traZODone HCL 50 MG TABLET PO (21:59)
[2023-04-26] MEDS: INSULIN GLARGINE (*BKC) 100 UNITS/ML 20 UNITS SUB-Q (21:59)
--- NOTE | 2023-04-26 22:49 | PC.NURSE ---
1913: Upon reassessment of tylenol dose from 1812, pt complained of headache radiating from eyes to occipital area. Pt rates pain at 6/10. Vital signs stable. Administered tramadol, see APR. 1932: Pt informed RN I need something else I can't handle the pain. It is going down my neck into my back. Vital signs stable. Informed Dr Dean and obtained a one time order for Toradol, see 2009: Upon reassessment, pt continues to complain of a headache and rates pain at 10/10 and now radiates to back and shoulders. Placed call to CATHERINE Chan. No response, left message with provider. 2036: [place] returned call. Ordered head CT and requested phone call to dr mccall to okay use of contrast for CTA of chest to rule out aortic dissection. New orders obtained. 2052: Dr Mccall okayed contrast dye and confirmed that patient should have CTA of chest. Pt agreeable. Informed [place] and CT. feed inspection supervisor to place IV for CTA. 2139: Pt to CT via wheelchair with PD intact. CATHERINE Haney, made aware of CT and CTA results. No further orders at this time. 2204: Pt care signed off to Gene STORY.
[2023-04-27] VITALS (19 sets, daily range): BP systolic 131–170; BP diastolic 63–76; PULSE 53–73; RESP 11–20; TEMP 35.9–36.6; O2SAT 96–100
[2023-04-27] MEDS: LORazepam (*CRX) 0.5 MG TABLET PO (00:24)
[2023-04-27] MEDS: ACETAMINOPHEN 325 MG TABLET 650 MG PO ×2 (00:24→11:15)
[2023-04-27] MEDS: HYDROmorphone HCL INJ (*CRX) 1 MG/ML SYR IV PUSH (01:05)
--- NOTE | 2023-04-27 01:29 | PC.NURSE ---
0100 Pt called out needing to use the restroom. Came to the room, pt was immediately making passive aggressive comments about how he was restricted from walking to the bathroom. I stated that we are doing what is most safe for him due to him receiving narcotics for pain and being hooked up to his peritoneal dialysis machine. After leaving and coming back to the room to ask about his precautions, I returned to the room to look for the patient's urinal per the tech's recommendation. Patient told me he had been getting up to the bedside commode and began sitting up and swinging his legs over. Patient boasted, you can either get the commode for me or I can go ahead and pee all over you and pee on this floor. I replied, please do not speak to me that way, I am trying to do what's safest for you. As I went ahead and grabbed the commode, under his barks, to be placed directly next to the bed, the patient aggressively commented, how about you hold it for me too. Pt continued to pee standing up aiming towards the commode but actually peeing all over the floor making more inappropriate comments robustly and eventually getting pivoting back into the bed. I called Mango Rice RN and male nurse, Eros De La Paz RN to assist me just in case he became physically inappropriate while I was cleaning the urine soaked floor as he watched and smiled. Mango Rice RN, spoke with the patient about how his words and actions would not be tolerated towards healthcare staff. Pt.'s nurse was updated. Pt.'s was present in the room and did not verbally or physically interact during this altercation. Pt was alert and oriented to person, place, and time upon prior and post assessment.
--- NOTE | 2023-04-27 01:53 | PC.NURSE ---
Daylight Savings Time For Daylight Savings Time Ending in the Fall - Clocks are moved back. For Daylight Savings Time Beginning in the Spring - Clocks are moved ahead. For [facility], the time of change occurs at 0200 hrs. Time is taken from the server administrator. This entry on the patient's chart recognizes the change in time reflected during documentation. Example: 2 entries for vital signs may be charted for 0200 hrs.
--- NOTE | 2023-04-27 01:56 | PC.NURSE ---
Daylight Savings Time For Daylight Savings Time Ending in the Fall - Clocks are moved back. For Daylight Savings Time Beginning in the Spring - Clocks are moved ahead. For [facility], the time of change occurs at 0200 hrs. Time is taken from the outside food server. This entry on the patient's chart recognizes the change in time reflected during documentation. Example: 2 entries for vital signs may be charted for 0200 hrs.
[2023-04-27 04:39] LABS: Basophils Percent Auto 0.2 % (0.2-1.2); Eosinophils Percent Auto 0.2 % (0-4.4); Hematocrit 32.7 % (42.0-52.0); Hemoglobin 10.4 g/dL (14.0-18.0); Immature Granulocyte Absolute 0.08 K/mm3 (0.00-0.031); Immature Granulocyte Percent A 1.4 % (0-0.5); Lymphocytes Absolute Auto 0.69 K/mm3 (0.9-3.2); Lymphocytes Percent Auto 11.8 % (18.3-44.2); Mean Corpuscular HGB Conc 31.8 g/dl (32-36); Mean Corpuscular Volume 97.6 fl (80-100); Mean Platelet Volume 11.1 fl (7.4-10.4); Monocytes Absolute Auto 0.8 K/mm3 (0.1-0.6); Monocytes Percent Auto 13.5 % (2.6-8.5); Neutrophils Absolute Auto 4.3 K/mm3 (1.3-6.7); Neutrophils Percent Auto 72.9 % (45.5-73.1); Platelet Count Result 165 k/mm3 (150-375); Red Blood Count 3.35 M/mm3 (4.6-6.20); Red Cell Distribution Width 14.7 % (11.5-14.5); White Blood Count 5.8 K/mm3 (4.5-10.0)
[2023-04-27 04:54] LABS: Alanine Aminotransferase 41 U/L (6-50); Albumin Level 3.1 g/dL (3.5-5.1); Alkaline Phosphatase 78 U/L (38-126); Anion Gap 9 mmol/L (8-16); Aspartate Amino Transferase 27 U/L (17-59); Bilirubin,Total 0.4 mg/dL (0.2-1.3); Blood Urea Nitrogen 41 mg/dL (9-20); Calcium 9.4 mg/dL (8.4-10.2); Carbon Dioxide 27 mmol/L (22-30); Chloride 100 mmol/L (98-107); Estimated CRCL calculation 9 ml/min; Estimated Glomerular Filt Rate 7; Glucose 270 mg/dL (65-110); Potassium 2.9 mmol/L (3.4-5.0); Sodium 136 mmol/L (137-145)
[2023-04-27] MEDS: LEVOTHYROXINE SODIUM 112 MCG TABLET PO (05:50)
[2023-04-27] MEDS: FUROSEMIDE 80 MG TABLET 160 MG PO ×2 (08:41→17:54)
[2023-04-27] MEDS: VITAMIN B CMPLX/VIT C/FOLIC AC 1 CAPSULE 1 CAP PO (08:42)
[2023-04-27] MEDS: DULoxetine HCL 30 MG CAPSULE.DR PO (08:42)
[2023-04-27] MEDS: ASPIRIN 81 MG ENTERIC TABLET PO (08:42)
[2023-04-27] MEDS: carvediloL 25 MG TABLET PO (08:43)
[2023-04-27] MEDS: HEPARIN SODIUM 5,000 UNITS/ML VIAL 5000 UNITS SUB-Q (08:53)
[2023-04-27] MEDS: INSULIN GLARGINE (*BKC) 100 UNITS/ML 20 UNITS SUB-Q (08:53)
--- NOTE | 2023-04-27 09:00 | P.PNNP_ITS ---
Progress Note: A&P Assessment and Plan (1) End stage renal disease: Code(s): N18.6 - End stage renal disease Status: Chronic Assessment and Plan: * the patient is on peritoneal dialysis. Fluid is clear in flows are good. * About 1.5L were removed. * Potassium is a little low. Will supplement this. * Bicarbonate is good. BUN is well controlled. * Volume status looks okay * continue the same PD (2) Hypertensive urgency: Code(s): I16.0 - Hypertensive urgency Status: Acute Assessment and Plan: * presented to ER with significantly elevate BP (systolic > 200) in association with headaches and shortness of breath * early on was on nicardipine drip. On oral antihypertensives. * Currently getting carvedilol, clonidine patch, nifedipine 30, and lisinopril 40. * He also has an order for p.r.n. hydralazine which gives him a headache. * He had his 1st dose of nifedipine yesterday and had a severe headache last night and so will stop the nifedipine and try diltiazem. He was on this in the past and tolerated this. * Will change the p.r.n. hydralazine to p.r.n. clonidine since he seems to be tolerating this so far. (3) Anemia: Code(s): D64.9 - Anemia, unspecified Status: Chronic Assessment and Plan: * H/H at goal for ESRD * Hemoglobin is 10.4 * start Epogen if Hgb drops below 10. * Hold off on this for now because of the blood pressure. (4) Chronic GERD: Code(s): K21.9 - Gastro-esophageal reflux disease without esophagitis Status: Chronic Assessment and Plan: * on PPI (protonix) (5) Diabetes mellitus: Code(s): E11.9 - Type 2 diabetes mellitus without complications Status: Chronic Assessment and Plan: * follow accu-cheks * glycemic control per log cut off sawyer/hospitalist (6) Dizziness: Code(s): R42 - Dizziness and giddiness Status: Acute Assessment and Plan: he gets lightheaded when lying on his left side. This is a chronic issue. He will follow-up with ENT as an outpatient . Multiple imagings of the head are negative Subjective Date/time seen: 04/27/23 09:00 Interval history: patient had a severe headache last night. CT head was negative. He also had left shoulder pain so hospitalist ordered a CTA of the chest to rule out some sort of a dissection and this was negative as well. His headache is now better. Exam Narrative: WDWN in NAD skin no rash head ncat lungs clear cor reg no rub abd BS+ nontender and soft ext no edema. Objective Data Vital Signs Vital Signs: Vital Signs - 24 hr 04/26/23 08:47 04/26/23 09:00 04/26/23 10:00 Temperature Pulse Rate 61 63 62 Respiratory Rate 13 15 Blood Pressure 152/68 H 150/68 H Pulse Oximetry 99 100 Oxygen Delivery 04/26/23 10:00 04/26/23 10:35 04/26/23 12:00 Temperature 97.6 F Pulse Rate 62 67 Respiratory Rate Blood Pressure Pulse Oximetry Oxygen Delivery 04/26/23 12:00 04/26/23 12:00 04/26/23 14:00 Temperature 98.0 F Pulse Rate 69 65 Respiratory Rate 19 Blood Pressure 162/88 H Pulse Oximetry 98 Oxygen Delivery Room Air
--- NOTE | 2023-04-27 09:00 | PM.PNNEP ---
Progress Note: A&P Assessment and Plan (1) End stage renal disease: Code(s): N18.6 - End stage renal disease Status: Chronic Assessment and Plan: the patient is on peritoneal dialysis. Fluid is clear in flows are good. About 1.5L were removed. Potassium is a little low. Will supplement this. Bicarbonate is good. BUN is well controlled. Volume status looks okay continue the same PD (2) Hypertensive urgency: Code(s): I16.0 - Hypertensive urgency Status: Acute Assessment and Plan: presented to ER with significantly elevate BP (systolic > 200) in association with headaches and shortness of breath early on was on nicardipine drip. On oral antihypertensives. Currently getting carvedilol, clonidine patch, nifedipine 30, and lisinopril 40. He also has an order for p.r.n. hydralazine which gives him a headache. He had his 1st dose of nifedipine yesterday and had a severe headache last night and so will stop the nifedipine and try diltiazem. He was on this in the past and tolerated this. Will change the p.r.n. hydralazine to p.r.n. clonidine since he seems to be tolerating this so far. (3) Anemia: Code(s): D64.9 - Anemia, unspecified Status: Chronic Assessment and Plan: H/H at goal for ESRD Hemoglobin is 10.4 start Epogen if Hgb drops below 10. Hold off on this for now because of the blood pressure. (4) Chronic GERD: Code(s): K21.9 - Gastro-esophageal reflux disease without esophagitis Status: Chronic Assessment and Plan: on PPI (protonix) (5) Diabetes mellitus: Code(s): E11.9 - Type 2 diabetes mellitus without complications Status: Chronic Assessment and Plan: follow accu-cheks glycemic control per supervisor cap and hat production/hospitalist (6) Dizziness: Code(s): R42 - Dizziness and giddiness Status: Acute Assessment and Plan: he gets lightheaded when lying on his left side. This is a chronic issue. He will follow-up with ENT as an outpatient . Multiple imagings of the head are negative Subjective Date/time seen: 04/27/23 09:00 Interval history: patient had a severe headache last night. CT head was negative. He also had left shoulder pain so hospitalist ordered a CTA of the chest to rule out some sort of a dissection and this was negative as well. His headache is now better. Exam Narrative: WDWN in NAD skin no rash head ncat lungs clear cor reg no rub abd BS+ nontender and soft ext no edema. Objective Data Vital Signs Vital Signs: Vital Signs - 24 hr 04/26/23 08:47 04/26/23 09:00 04/26/23 10:00 Temperature Pulse Rate 61 63 62 Respiratory Rate 13 15 Blood Pressure 152/68 H 150/68 H Pulse Oximetry 99 100 Oxygen Delivery 04/26/23 10:00 04/26/23 10:35 04/26/23 12:00 Temperature 97.6 F Pulse Rate 62 67 Respiratory Rate Blood Pressure Pulse Oximetry Oxygen Delivery 04/26/23 12:00 04/26/23 12:00 04/26/23 14:00 Temperature 98.0 F Pulse Rate 69 65 Respiratory Rate 19 Blood Pressure 162/88 H Pulse Oximetry 98 Oxygen Delivery Room Air 04/26/23 16:00 04/26/23 16:40 04/26/23 17:12 Temperature 97.4 F L Pulse Rate 71 Respiratory Rate Blood Pressure 156/67 H Pulse Oximetry 100 Oxygen Delivery Room Air Room Air 04/26/23 16:00 04/26/23 18:00 04/26/23 20:50 Temperature Pulse Rate 72 66 Respiratory Rate Blood Pressure 153/102 H Pulse Oximetry Oxygen Delivery 04/26/23 20:00 04/26/23 20:50 04/26/23 21:51 Temperature 97.1 F L Pulse Rate 63 61 Respiratory Rate 16 Blood Pressure 145/72 H 181/94 H Pulse Oximetry 100 Oxygen Delivery 04/26/23 20:00 04/26/23 22:00 04/26/23 20:00 Temperature Pulse Rate 60 62 Respiratory Rate Blood Pressure Pulse Oximetry Oxygen Delivery Room Air 04/27/23 00:00 04/27/23 00:00
[2023-04-27] MEDS: dilTIAZem HCL CD 240 MG CAP.24HR PO (09:53)
--- NOTE | 2023-04-27 11:15 | PM.PNCARD ---
Progress Note: A&P Assessment and Plan (1) Hypertensive urgency: Code(s): I16.0 - Hypertensive urgency Status: Acute Assessment and Plan: His hypertension will be difficult to manage because of his chronic orthostasis, therefore, we will likely never be able to get his blood pressures to normal range. Continue Coreg 25mg BID Continue Lasix 160mg BID Continue Clonidine patch. Continue Lisinopril 40mg Daily. Dr. Mccall switched the Nifedipine to Diltiazem due to the headache. His blood pressures are looking much better now. I agree with Dr. Mccall that the patient needs to try to stay on the same medication regimen and be consistent with it and avoid frequent medication changes. (2) Chronic diastolic (congestive) heart failure: Code(s): I50.32 - Chronic diastolic (congestive) heart failure Status: Acute Assessment and Plan: No signs or symptoms of decompensated heart failure at this time.? Continue current medical regimen. (3) CAD (coronary artery disease): Code(s): I25.10 - Atherosclerotic heart disease of [place] coronary artery without angina pectoris Status: Acute Assessment and Plan: Stable, no anginal symptoms.? Continue aspirin Subjective Date/time seen: 04/27/23 11:15 Interval history: Reason for visit: Hypertensive urgency HPI: Kendall Carl is a 68 year old male with end stage renal disease on peritoneal dialysis, hypertension, diabetes, and coronary artery disease with stenting of the LAD done at [facility] a couple of years ago.? Came to the emergency department with complaints of headache and shortness of breath.? He was found to be significantly hypertension with a blood pressure of 222/99 mmHg.? During his last admission to [facility], he developed significant symptomatic orthostatic hypotension which was difficult to manage given his significant supine hypertension.? His is at the bedside and states that the patient stop taking the midodrine and fludrocortisone prescribed to him following discharge from his last hospitalization.? She states that she has not been diligent about taking his blood pressure, but she does tell me that 1 morning she took his blood pressure prior to administering his medications and his systolic blood pressure was 90 mmHg.? Overall, patient states that he has not had problems with orthostatic symptoms since discharge from his last hospitalization.? He denies any chest pain, palpitations, unusual swelling, syncope.? Currently, he is lying comfortably in bed in the ICU and his systolic blood pressure is 167mmHg. Date of service 04/25: He is feeling better. Had a headache this morning. Still getting IV PRN Hydralazine, but blood pressures are looking better this morning. Date of service 04/26: Reports having a bad headache last night. Tylenol helped. Dr. Mccall switched the Nifedipine to Diltiazem due to the headache. Blood pressures are looking much better. Review of Systems Review of Systems: All systems reviewed & are unremarkable except as noted in HPI and below (HPI) Exam Const: General: comfortable and no acute distress Eyes: General: appearance normal, both eyes and all related structures Sclera: sclerae normal Resp: Effort & Inspection: normal respiratory effort Cardio: Rate: regular rate Rhythm: regular rhythm Skin: General skin exam: normal color Neuro: Speech: normal speech Psych: Mental Status: mental status grossly normal Affect: normal affect Objective Data Vital Signs Vital Signs: Vital Signs - 24 hr 04/26/23 10:35 04/26/23 12:00 04/26/23 12:00 Temperature 36.4 C Pulse Rate 67 Respiratory Rate Blood Pressure Pulse Oximetry Oxygen Delivery Room Air 04/26/23 12:00 04/26/23 14:00 04/26/23 16:00 Temperature 36.7 C Pulse Rate 69 65 Respiratory Rate 19 Blood Pressure 162/88 H Pulse Oximetry 98 Oxygen Delivery Room Air 04/26/23
[2023-04-27] MEDS: CHOLECALCIFEROL 1,000 UNITS TABLET 5000 UNITS PO (12:30)
[2023-04-27] MEDS: INSULIN ASPART (*BKC) 100 UNITS/ML SUB-Q (12:32)
--- NOTE | 2023-04-27 12:34 | PM.IMPN ---
Progress Note: A&P Assessment and Plan (1) Hypertension: Code(s): I10 - Essential (primary) hypertension Status: Chronic (2) Hyperlipemia: Code(s): E78.5 - Hyperlipidemia, unspecified Status: Acute (3) End stage renal disease: Code(s): N18.6 - End stage renal disease Status: Chronic (4) Anxiety: Code(s): F41.9 - Anxiety disorder, unspecified Status: Acute (5) Cephalgia: Code(s): R51.9 - Headache, unspecified Status: Acute Plan # hypertensive urgency -patient has severe however blood pressures up to 200 systolic, now improved on the current regimen -blood pressure regimen: Continue lisinopril 40 mg daily, Coreg 25 mg b.i.d., clonidine patch 0.1 milligram, Lasix 160 mg b.i.d., and?changing nifedipine to diltiazem 240mg. patient had headache after nifedipine -patient is having headaches with the p.r.n. hydralazine -off nicardipine drip -antiemetic: P.r.n. Zofran -overnight head CT and CTA chest negative for any acute finding, dissection was ruled out #headache -may be drug induced from nifedipine -will continue to monitor, symptoms have resolved # chronic condition -may continue vitamins:? B complex, vitamin-C, folic acid, vitamin-D -insomnia: Trazodone -BPH: Flomax -Code: Protonix -anxiety: P.r.n. Xanax, Cymbalta -hypothyroidism:? Synthroid -insulin minute to 2 diabetes:? With hyperglycemia decreasing home glargine from 40 units to 20 units b.i.d., a.m. dose held.? Continue sliding scale insulin, Accu-Cheks a.c. HS, hypoxia protocol, A1c 8.18 Sep 2021 -ESRD on peritoneal dialysis:? Appreciate nephrology consultation, continue nightly peritoneal dialysis.? Hypokalemia be monitored by Nephrology. K 3.2 Diet:??Renal diet DVT prophylaxis:??SubQ heparin Code status:?Full code Disposition:??home in 1-2 days (monitoring BP with the new changes) Time Spent With Patient Time: 35 minutes Subjective Date/time seen: 04/27/23 12:34 Interval history: Patient seen and examined. Yesterday he had significant headaches radiating to his back which may have been the nifedipine. Machine Guide Base Winder change nifedipine to diltiazem. Consult PT and OT to see patient. Blood pressures have been better. We will monitor overnight with these med changes. Patient has many nonspecific complaints such as when he lays on his left side he passed out, an ongoing issue for several years. Overnight he had CT head which showed chronic sinusitis. CTA chest was negative for dissection or aneurysm (ordered for his back pain and hypertension). This morning patient feels better. Patient denies fever, chills, nausea vomiting, diarrhea. Review of Systems Review of Systems: 10 point ROS complete, negative other than what is specified in HPI. Exam Narrative: - GENERAL:? Pleasant male no acute distress. - EYES: EOMI. Anicteric. - HENT: Moist mucous membranes. - LUNGS: Clear to auscultation bilaterally, no wheezing, rhonchi, or rales. - CARDIOVASCULAR: Regular rate and rhythm. No murmur. No JVD. - ABDOMEN: Soft, non-tender and non-distended. No palpable masses. - EXTREMITIES: No edema. Peripheral pulses 2+. Non-tender. - NEUROLOGIC: No focal neurological deficits. CN II-XII grossly intact. - PSYCHIATRIC: Awake, Alert and oriented x 3. Appropriate mood and affect. - SKIN: No rashes or lesions. Warm. - LYMPH: No cervical lymphadenopathy. Objective Data Vital Signs Vital Signs: Vital Signs - 24 hr 04/26/23 12:00 04/26/23 12:00 04/26/23 12:00 Temperature 36.7 C Pulse Rate 67 69 Respiratory Rate 19 Blood Pressure 162/88 H Pulse Oximetry 98 Oxygen Delivery Room Air 04/26/23 14:00 04/26/23 16:00 04/26/23 16:40 Temperature Pulse Rate 65 Respiratory Rate Blood Pressure Pulse Oximetry Oxygen Delivery Room Air Room Air 04/26/23 17:12 04/26/23 16:00 04/26/23 18:00 Temperature 36.3 C L Pulse Rate 71 72 66 Respiratory Rate Blood Pressure 156/67 H
[2023-04-27] MEDS: traMADol HCL (*CRX) 50 MG TABLET PO (13:57)
[2023-04-27] MEDS: POTASSIUM CHLORIDE 20 MEQ ER TABLET 40 MEQ PO (16:00)
[2023-04-27] MEDS: CYCLOBENZAPRINE HCL 10 MG TABLET PO (16:00)
--- NOTE | 2023-04-27 17:10 | PC.NURSE ---
1450. Patient called out for pain medication. Communicated with patient that I would be in to address concerns for pain and reevaluate symptoms after finishing care of another patient. Pacing about in room. No s/s distress. 1500. This nurse notified that patient paged Dr Mccall's exchange. Spoke with Dr Mccall and patient was requesting Dilaudid for pain medication. I notified Dr Mccall that I have provided this patient with Tramadol as prescribed by hospitalist one hour prior. Patient was advised that I would be back into his room for re-evaluation of pain symptoms and with plan to follow up with hospitalist for further treatment. 1505. Went in to patient room to speak with patient about pain symptoms at which time he states he is pacing about room so that he does not pop somebody . He is requesting Dilaudid and proceeds to threaten leaving AMA if this medication is not provided to him. Hospitalist , Dr Dean made aware. Dr Dean came to evaluate patient. Orders received. safety deposit supervisor, Jorge STORY and Charge nurse, Leatha STORY made aware. They both also went in to speak with patient at this time. 1700. freight weigher went into patient room to hook patient up to peritoneal dialysis machine and patient refused. freight weigher stated that she sent a message to Dr Mccall regarding patient refusal. I then went into the patient room and advised patient that he should be compliant with treatment as recommended. He states even if i let her hook it up I will just turn it off . I can play this game too .
--- NOTE | 2023-04-27 18:32 | PM.EVENT ---
Event Note Event Note Event Note: 2nd visit to see patient. The patient has a headache. This is not quite as severe as it had been last night but was building up gradually over the day beginning at around 10:00 a.m.. He has had Tylenol, tramadol, and then a couple of hours ago received cyclobenzaprine. Evaluation and medications have been given by the hospitalist. He was very frustrated because he felt that the staff was not paying attention to him. The staff was saying that need to let each round of medication soaking see if it would work before proceeding to the next. We do not want to over medicate the patient. I told him that it was not suarez for me to interfere with the hospitalist evaluation and management of his headache. I had a long conversation with the patient lasting about 20minutes minutes or so. So discussed with nursing staff. I went in to see the patient again and it turns out that his headache is a little bit better now after he took the cyclobenzaprine. Also, if the nifedipine contributed at all to it, this is wearing off is well which may be helping the headache. His blood pressure is doing better in the 160s instead of in the 200s. His neurologic examination is unremarkable. He is alert and oriented x3. Cranial nerves 2-12 are intact. Reflexes 2+ and equal. Motor is 5/5. Imaging has shown [address] scans. I have asked Neurology to check in on the patient to help with the headaches. 25minutes were spent in discussions with the patient and staff apart from clinical activity.
--- NOTE | 2023-04-27 21:43 | PC.NURSE ---
Nurse made patient aware or leaving AMA patient signed AMA paperwork. No question or concerns at this time.
[2023-04-27 22:42] LABS: Glucose Point of Care 161 mg/dl (65-105)
--- NOTE | 2023-04-28 18:39 | P.PNCROSS_ITS ---
Event Note Event Note Event Note: I had discussed earlier in the day the risks and benefits of opiates versus oth er headache management. Patient was agitated overnight demanding opiates. He was upset and left AMA at 04/27/23 at 9pm.
[2023-05-01 14:46] LABS: Glucose Point of Care 183 mg/dl (65-105)
[2023-05-01 14:47] LABS: Glucose Point of Care 181 mg/dl (65-105)
[2023-05-01 14:47] LABS: Glucose Point of Care 257 mg/dl (65-105)
[2023-05-01 14:48] LABS: Glucose Point of Care 273 mg/dl (65-105)
[2023-05-01 14:48] LABS: Glucose Point of Care 103 mg/dl (65-105)
[2023-05-01 14:48] LABS: Glucose Point of Care 250 mg/dl (65-105)
[2023-05-01 14:49] LABS: Glucose Point of Care 107 mg/dl (65-105)
[2023-05-01 14:49] LABS: Glucose Point of Care 119 mg/dl (65-105)
--- OUTSIDE RECORDS SUMMARY | 2023-06-25 11:15 | XMS_ITS | Continuity of Care Document ---
Author Name Unknown Organization [facility] t[facility] Address [address] [place] [address]- Encounter 12/03/22 - 02/03/23 [facility]ination [address] [place] [address]- Allergies, Adverse Reactions, Alerts No Known Medication Allergies Immunizations Given and Recorded Vaccine Date Status Refusal Reason influenza virus vaccine, inactivated 10/29/20 Lalo rded pneumococcal (PCV13) 08/09/20 Recorded SARS-CoV-2 (COVID-19) Pfizer-162b2 05/05/20 Record ed SARS-CoV-2 (COVID-19) Pfizer-162b2 04/20/20 Record ed SARS-CoV-2 (COVID-19) Pfizer-162b2 04/15/20 Record ed SARS-CoV-2 (COVID-19) Pfizer-162b2 03/20/20 Record ed Medications aspirin 81 mg oral delayed release tablet 81 mg, Oral, Daily, 0 Refill(s) Start Date: 10/17/21 Status: Ordered atorvastatin 80 mg oral tablet 80 mg, Oral, Daily, 0 Refill(s) Start Date: 10/17/21 Status: Ordered Basaglar KwikPen 100 units/mL subcutaneous solution 40 units, Subcutaneous, BID, 0 Refill(s) Start Date: 11/28/21 Status: Ordered carvedilol 25 mg oral tablet 25 mg, BID, 0 Refill(s) Start Date: 10/17/21 Status: Ordered Colace 20 mg, Oral, As Needed, 0 Refill(s) Start Date: 12/06/22 Status: Ordered Dialyvite 800 Ultra D oral tablet 1 tab, Oral, Daily, 0 Refill(s) Start Date: 12/06/22 Status: Ordered DilTIAZem Hydrochloride XR 240 mg/24 hours oral capsule, extended release 240 mg, Oral, Daily, 0 Refill(s) Start Date: 11/28/21 Status: Ordered ergocalciferol 50 mcg (2000 intl units) oral capsule 5,000 units, Oral, Daily, 0 Refill(s) Start Date: 10/23/21 Status: Ordered fenofibrate 145 mg oral tablet 145 mg = 1 tab, Oral, Daily, # 30 tab, 0 Refill(s) Start Date: 12/06/22 Status: Ordered finasteride 5 mg oral tablet 5 mg = 1 tab, Oral, Daily, # 30 tab, 0 Refill(s) Start Date: 12/06/22 Status: Ordered furosemide 40 mg oral tablet 160 mg, Oral, BID, 0 Refill(s) Start Date: 10/17/21 Status: Ordered gabapentin 100 mg, Oral, hs, 0 Refill(s) Start Date: 12/24/22 Status: Ordered guanFACINE 1 mg oral tablet 3 mg, Oral, hs, 0 Refill(s) Start Date: 01/16/22 Status: Ordered ICaps AREDS oral tablet 1 tab, Oral, Daily, # 30 tab, 0 Refill(s) Start Date: 10/23/21
--- OUTSIDE RECORDS SUMMARY | 2023-06-25 11:15 | XMS_ITS | Continuity of Care Document ---
Author Name Unknown Organization [facility] t[facility] Address [address] [place] [address]- Encounter 03/21/23 - 06/06/23 [facility] [address] [place] [address]- Allergies, Adverse Reactions, Alerts Substance Criticality Severity Reaction Reaction Severity Status oxyCODONE Unable to assess criticality Unknown Active Immunizations Given and Recorded Vaccine Date Status [...] 0 Refill(s) Start Date: 12/06/22 Status: Ordered DULoxetine 30 mg oral delayed release capsule 30 mg = 1 cap, Oral, Daily, do not crush or chew, 0 Refill(s) Start Date: 03/31/23 Status: Ordered ergocalciferol 50 mcg (2000 intl units) oral capsule 5,000 units, Oral, Daily, 0 Refill(s) Start Date: 10/23/21 Status: Ordered finasteride 5 mg oral tablet 5 mg = 1 tab, Oral, Daily, # 30 tab, 0 Refill(s) Start Date: 12/06/22 Status: Ordered fludrocortisone 0.1 mg oral tablet 0.1 mg = 1 tab, Oral, Daily, # 90 tab, 0 Refill(s) Start Date: 03/31/23 Status: Ordered furosemide 40 mg oral tablet 160 mg, Oral, BID, 0 Refill(s) Start Date: 10/17/21 Status: Ordered gabapentin 100 mg, Oral, hs, 0 Refill(s) Start Date:
== END 2023-04-27 21:40 | disposition home health service (06) | DRG 304 ==
LOC: ANHED 23:26 → ANHICU 04-25 07:32 → ANHED 04-26 08:00 → ANHICU 04-26 08:00 → ANHIMU 04-26 16:07
PROVIDERS: Internal Medicine; Internal Medicine Nephrology; Student in an Organized Health Care Education/Training Program; Admitting Provider Internal Medicine; Emergency Provider Emergency Medicine; PCP Family Medicine; Visit Provider Internal Medicine
DX: I16.1 Hypertensive emergency (principal); N18.6 End stage renal disease; I50.32 Chronic diastolic (congestive) heart failure; I13.2 Hypertensive heart and chronic kidney disease with heart failure and with stage 5 chronic kidney disease, or end stage renal disease; E11.22 Type 2 diabetes mellitus with diabetic chronic kidney disease; E03.9 Hypothyroidism, unspecified; E78.00 Pure hypercholesterolemia, unspecified; D64.9 Anemia, unspecified; K74.60 Unspecified cirrhosis of liver; K21.9 Gastro-esophageal reflux disease without esophagitis; J32.9 Chronic sinusitis, unspecified; N40.0 Benign prostatic hyperplasia without lower urinary tract symptoms; R51.9 Headache, unspecified; F41.9 Anxiety disorder, unspecified; Z96.651 Presence of right artificial knee joint; Z85.528 Personal history of other malignant neoplasm of kidney; Z99.2 Dependence on renal dialysis; Z79.82 Long term (current) use of aspirin; Z79.4 Long term (current) use of insulin; Z95.5 Presence of coronary angioplasty implant and graft; Z90.5 Acquired absence of kidney
CPT/HCPCS: 36415; 70450; 71046; 71275; 80053; 82948; 83690; 83735; 84100; 84484; 85025; 85610; 85730; 86706; 87340; 90945; 93005; A9270; J0360; J1170; J1200; J1644; J1815; J1885; J2404; J2405; J3010; Q9967

== ENCOUNTER 2023-05-09 15:28 | Outpatient (CLI) | payer MEDICARE, SELFPAY ==
--- NOTE | ~2023-05-09 | XR_ITS ---
[XR_RIBSBICXR1_CR ] INDICATION: Rib pain. TECHNIQUE: Frontal projection of the upper ribs, frontal projection of the lower ribs, oblique projec tion of all the ribs, frontal inspiratory chest x-ray for interpretation. FINDINGS: There are no displaced rib fractures identified. There are no soft tissue abnormality see n. The lungs are clear. There is osteoarthritis of the shoulders. There are side plates and screws transfixing the sternum. IMPRESSION: 1:No acute displaced rib fractures. Reviewed, dictated and finalized at location A.
== END 2023-05-09 15:29 | disposition home or self-care (01) ==
LOC: ANHIMG 15:33
PROVIDERS: PCP Family Medicine; Visit Provider Physician Assistant Medical
DX: R07.81 Pleurodynia (principal); S22.20XA Unspecified fracture of sternum, initial encounter for closed fracture; X58.XXXA Exposure to other specified factors, initial encounter
CPT/HCPCS: 71111

== ENCOUNTER 2023-05-14 13:51 | Emergency (ER) | payer MEDICARE, SELFPAY ==
[2023-05-14 14:03] VITALS: BP 162/78; PULSE 62; RESP 16; TEMP 36.9; O2SAT 100
[2023-05-14 14:06] VITALS: BP 162/78; PULSE 62; RESP 16; TEMP 36.9; O2SAT 100
== END 2023-05-14 14:10 | disposition left against medical advice (07) ==
PROVIDERS: Emergency Provider Internal Medicine Hematology & Oncology; PCP Family Medicine
DX: Z53.21 Procedure and treatment not carried out due to patient leaving prior to being seen by health care provider (principal)
CPT/HCPCS: 99199

== ENCOUNTER 2023-05-14 17:04 | Outpatient (CLI) | payer MEDICARE, SELFPAY ==
--- NOTE | ~2023-05-14 | XR_ITS ---
. XR sternum min 2V 05/14/2023 17:35 INDICATION: History of falls. History of sternal fracture. PROCEDURE: 2 views of the sternum COMPARISON: 03/11/2023 FINDINGS: Acute fracture, dislocation or subluxation is not identified. There is a healing fracture o f the sternum with internal fixation with sideplate and screws. No displacement. There is sclerosis s urrounding the fracture site. Surrounding osseous structures are unremarkable. The soft tissues appea r within normal limits. No foreign bodies are identified. IMPRESSION: 1: Healing fracture of the sternum with internal fixation. Reviewed, dictated and finalized at location L.
--- NOTE | ~2023-05-14 | XR_ITS ---
[XR_RIBSBI_CR ] INDICATION: History of sternal fracture. COMPARISON: 05/09/2023 TECHNIQUE: Frontal projection of the upper ribs, frontal projection of the lower ribs, oblique projec tion of all the ribs, frontal inspiratory chest x-ray for interpretation. FINDINGS: There are no displaced rib fractures identified. There are no soft tissue abnormality see n. The lungs are clear. There are cholecystectomy clips. There are sternal plates and screws. IMPRESSION: 1:No acute displaced rib fractures. Reviewed, dictated and finalized at location L.
== END 2023-05-14 17:05 | disposition home or self-care (01) ==
LOC: ANHIMG 17:05
PROVIDERS: PCP Family Medicine; Visit Provider Physician Assistant Medical
DX: R07.89 Other chest pain (principal); S22.22XD Fracture of body of sternum, subsequent encounter for fracture with routine healing; X58.XXXD Exposure to other specified factors, subsequent encounter; Z91.81 History of falling
CPT/HCPCS: 71110; 71120

== ENCOUNTER 2023-06-26 16:08 | Emergency (ER) | payer MEDICARE, SELFPAY ==
--- NOTE | ~2023-06-26 | US_ITS ---
EXAMINATION: US scrotum doppler DATE: 06/26/2023 19:02 INDICATION: Scrotal swelling TECHNIQUE: Testicular sonogram utilizing grayscale and Doppler COMPARISON: CT dated 02/12/2023 FINDINGS: The right testis measures 3.8 x 2.9 x 3.0 cm. The left testis measures 3.9 x 2.6 x 3.2 cm. Symmetric normal grayscale appearance to both testes. There is normal vascular flow to both testes. 7 mm epidid ymal cyst at the head of the right epididymis. The right epididymis is otherwise normal with normal v ascular flow. The left epididymis is normal with normal vascular flow. There is no varicocele. There is a small anechoic right hydrocele. There is a small more complex appearing left hydrocele with mult iple internal septations. There is marked scrotal edema. Hyperechoic fat extending to the scrotum ferny ng the bilateral inguinal canals on the cine imaging corresponding to bilateral fat-containing inguin al hernias as seen on the prior CT. IMPRESSION: 1. Small bilateral hydroceles, simple appearing on the right but complex with internal septations on the left which could be seen with infection or hemorrhage. 2. Normal bilateral testes and epididymides. 3. Marked scrotal edema. Reviewed, dictated and finalized at location A. IMPRESSION: 1. Small bilateral hydroceles, simple appearing on the right but complex with internal septations on the left which could be seen with infection or hemorrhag e. 2. Normal bilateral testes and epididymides. 3. Marked scrotal edema.
--- NOTE | ~2023-06-26 | XR_ITS ---
EXAMINATION: XR chest 2V DATE: 06/26/2023 17:27 INDICATION: Shortness of breath. TECHNIQUE: PA and lateral views of the chest were obtained. COMPARISON: Chest radiograph dated 04/24/[address] dated 05/06/2023 FINDINGS: The lungs remain clear with no focal airspace opacities, pulmonary edema, pleural effusion or pneumot horax. The cardiomediastinal silhouette is normal. Plain screw fixation along the anterior sternum. C hronic mild anterior wedging of T11 and T12. Moderate thoracic spondylosis with bridging osteophytes at multiple levels consistent with diffuse idiopathic skeletal hyperostosis (DISH). IMPRESSION: 1. No acute cardiopulmonary disease. Reviewed, dictated and finalized at location A.
[2023-06-26 16:28] VITALS: BP 151/65; PULSE 70; RESP 18; TEMP 36.3; O2SAT 97
--- NOTE | 2023-06-26 16:47 | ED.GENADULT ---
HPI - General Adult General Chief complaint: Urogenital-Male <Sloane Rm June, COSMETOLOGY EDUCATOR - Last Filed: 06/26/23 16:57> Stated complaint: swollen testicles <Sloane Rm June, COSMETOLOGY EDUCATOR - Last Filed: 06/26/23 16:57> Time Seen by Provider: 06/26/23 16:47 <Sloane Rm June, COSMETOLOGY EDUCATOR - Last Filed: 06/26/23 16:57> Focused HPI: Kendall Carl is a 68 y/o male who presents today with reports of having swelling to his testicles bilateral about the size of grapefruits at least. He states he was seeing a urologist Dr. Mcmullen and was on antibiotics for 10 days with no improvement. He states that his urologist told him to talk with his PCP and then he was sent here. He states that he has been told about 6 years ago that he has CHF but hasn't noticed any swelling anywhere else on his body. Denies SOB/ Denies CP/ reports feeling that he is breathing faster at night. Denies Fever/chills. Reports mild pain to scrotum mostly with walking. GENERAL: Well-appearing, well-nourished, and in no acute distress. HEAD: Normocephalic, atraumatic. CHEST: \?No respiratory distress. Clear with slight crackles to the right posterior base HEART: Regular rate and rhythm.? NEURO: ?Alert and oriented x3. Patient screened in triage and initial orders placed.? ?Additional care and disposition to be based upon?diagnostic testing and treatment. <Sloane Rm June, COSMETOLOGY EDUCATOR - Last Filed: 06/26/23 16:57> Related Data Home medications: Home Medications Medication Instructions Recorded Confirmed aspirin 81 mg tablet,delayed 81 mg PO DAILY 02/01/19 06/09/23 release (Sami Low Dose Aspirin) vit C 250 mg-vit E 200 unit-zinc 1 tablet PO Q12H 02/01/19 06/09/23 12.5 mg-copper 1 pa-xia-hgdvom tablet (ICaps AREDS2 (copper citrate)) blood sugar diagnostic (OneTouch 05/14/19 06/09/23 Ultra Blue Test Strip) carvedilol 25 mg tablet (Coreg) 25 mg PO Q12H 09/06/19 06/09/23 insulin glargine 100 unit/mL (3 40 unit subcut Q12H 10/12/21 06/09/23 mL) subcutaneous pen (Basaglar KwikPen U-100 Insulin) lisinopril 20 mg tablet 20 mg PO HS 08/12/22 06/09/23 potassium chloride 10 mEq 10 meq PO 1400 08/12/22 06/09/23 capsule,extended release cholecalciferol (vitamin D3) 125 125 mcg PO 1400 10/01/22 06/09/23 mcg (5,000 unit) tablet (Vitamin D3) folic acid 0.8 mg-vit B comp with 1 tablet PO DAILY 10/01/22 06/09/23 Z-yylw-nmgrxok D3 2,000 unit tablet (Dialyvite 800-Ultra D) furosemide 80 mg tablet 160 mg PO BID 10/01/22 06/09/23 insulin aspart U-100 100 unit/mL See Rx Instructions .Route .COMPLEX 10/01/22 06/09/23 (3 mL) subcutaneous pen (Novolog FlexPen U-100 Insulin aspart) tamsulosin 0.4 mg capsule 0.4 mg PO HS 10/01/22 06/09/23 diphenhydramine 25 2 tablet PO HS 03/12/23 06/09/23 mg-acetaminophen 500 mg tablet (Tylenol PM Extra Strength) pantoprazole 40 mg tablet,delayed 40 mg PO HS 03/12/23 06/09/23 release duloxetine 30 mg capsule,delayed 30 mg PO DAILY depression 04/09/23 06/09/23 release lorazepam 0.5 mg tablet (Ativan) 0.5 mg PO HS PRN Anxiety 04/25/23 06/09/23 clonidine 0.1 mg/24 hr weekly 0.1 mg transdermal WEEKLY 05/14/23 06/09/23 transdermal patch <Sloane Christiansen, COSMETOLOGY EDUCATOR - Last Filed: 06/26/23 16:57> Allergies/adverse reactions: Allergies Allergy/AdvReac Type Severity Reaction Status Date / Time oxycodone AdvReac Intermediate Hallucinati Verified 06/23/23 14:14 ng <Sloane Christiansen, COSMETOLOGY EDUCATOR - Last Filed: 06/26/23 16:57> Review of Systems Review of Systems: All systems reviewed & are unremarkable except as noted in HPI and below <Elroy Iverson MD - Last Filed: 06/26/23 20:03> [facility] Past Medical History Medical History: Medical History 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
[2023-06-26 17:56] LABS: Basophils Percent Auto 0.2 % (0.2-1.2); Eosinophils Percent Auto 0.2 % (0-4.4); Hematocrit 30.9 % (42.0-52.0); Hemoglobin 9.8 g/dL (14.0-18.0); Immature Granulocyte Absolute 0.12 K/mm3 (0.00-0.031); Immature Granulocyte Percent A 1.8 % (0-0.5); Lymphocytes Absolute Auto 0.88 K/mm3 (0.9-3.2); Lymphocytes Percent Auto 13.3 % (18.3-44.2); Mean Corpuscular HGB Conc 31.7 g/dl (32-36); Mean Corpuscular Hemoglobin 30.7 pg (26-34); Mean Corpuscular Volume 96.9 fl (80-100); Mean Platelet Volume 11.2 fl (7.4-10.4); Monocytes Absolute Auto 0.7 K/mm3 (0.1-0.6); Monocytes Percent Auto 11.1 % (2.6-8.5); Neutrophils Absolute Auto 4.9 K/mm3 (1.3-6.7); Neutrophils Percent Auto 73.4 % (45.5-73.1); Platelet Count Result 160 k/mm3 (150-375); Red Blood Count 3.19 M/mm3 (4.6-6.20); Red Cell Distribution Width 15.4 % (11.5-14.5); White Blood Count 6.6 K/mm3 (4.5-10.0)
[2023-06-26 18:01] LABS: Add Urine Microscopic? YES; Appearance Urine Clear (Clear); Bacteria Urine None Seen /hpf; Bilirubin Urine Negative (Negative); Blood Urine Trace (Negative); Color Urine Yellow (Yellow); Glucose Urine UA 2+ mg/dL (Negative); Ketones Urine Negative (Negative); Leukocyte Esterase Ur Negative LEU/UL (Negative); Nitrate Urine Negative (Negative); Non Pathogenic Casts 0-2; Protein Urine 3+ mg/dL (Negative); RBC Urine 0-2 /hpf (0-2); Specific Grav Ur 1.014 (1.001-1.035); Squamous Epithelial Cell Urine None Seen /hpf (Few); Urobilinogen Urine 0.2 mg/dL (<2.0); WBC Urine 0-5 /hpf (0-3)
[2023-06-26 18:07] LABS: Alanine Aminotransferase 17 U/L (6-50); Albumin Level 3.8 g/dL (3.5-5.1); Alkaline Phosphatase 75 U/L (38-126); Anion Gap 8 mmol/L (4-12); Aspartate Amino Transferase 28 U/L (17-59); Bilirubin,Total 0.5 mg/dL (0.2-1.3); Blood Urea Nitrogen 39 mg/dL (9-20); Calcium 8.5 mg/dL (8.4-10.2); Carbon Dioxide 28 mmol/L (22-30); Chloride 101 mmol/L (98-107); Estimated CRCL calculation 10 ml/min; Estimated Glomerular Filt Rate 7; Glucose 212 mg/dL (65-110); Sodium 137 mmol/L (137-145)
[2023-06-26 18:16] LABS: NT Pro B Type Natriuretic Pept 10600 pg/mL (19.9-100)
[2023-06-26] MEDS: levoFLOXacin 500 MG TABLET PO (20:10)
== END 2023-06-26 20:19 | disposition home or self-care (01) ==
PROVIDERS: Nurse Practitioner Family; Emergency Provider Emergency Medicine; PCP Family Medicine
DX: I13.2 Hypertensive heart and chronic kidney disease with heart failure and with stage 5 chronic kidney disease, or end stage renal disease (principal); N18.6 End stage renal disease; I50.32 Chronic diastolic (congestive) heart failure; N45.1 Epididymitis; E11.22 Type 2 diabetes mellitus with diabetic chronic kidney disease; E03.9 Hypothyroidism, unspecified; E78.00 Pure hypercholesterolemia, unspecified; D64.9 Anemia, unspecified; K21.9 Gastro-esophageal reflux disease without esophagitis; G47.33 Obstructive sleep apnea (adult) (pediatric); F41.9 Anxiety disorder, unspecified; Z99.2 Dependence on renal dialysis; Z95.5 Presence of coronary angioplasty implant and graft; Z96.651 Presence of right artificial knee joint; Z85.528 Personal history of other malignant neoplasm of kidney; Z86.16 Personal history of COVID-19; Z87.440 Personal history of urinary (tract) infections; Z90.49 Acquired absence of other specified parts of digestive tract; Z90.5 Acquired absence of kidney; Z98.42 Cataract extraction status, left eye; Z79.4 Long term (current) use of insulin; Z79.82 Long term (current) use of aspirin; Z79.899 Other long term (current) drug therapy
CPT/HCPCS: 36415; 71046; 76870; 80053; 81001; 83880; 85025; 93976; 99284; A9270

== ENCOUNTER 2023-07-08 09:43 | Outpatient (CLI) | payer MEDICARE, SELFPAY ==
--- NOTE | ~2023-07-08 | CT_ITS ---
EXAMINATION: CT abdomen pelvis wo con DATE: 07/08/2023 10:04 INDICATION: Scrotal swelling for one month. TECHNIQUE: Computed tomography (CT) of the abdomen and pelvis was performed without intravenous contr ast. Automated exposure control and iterative reconstruction technique were employed. Exam dose: 122 6.91 mGy-cm total exam DLP. COMPARISON: 02/12/2023 CT abdomen pelvis 03/18/2023 MRI abdomen 06/26/2023 scrotal ultrasound examination FINDINGS: Stable probable small posteromedial left lower lobe pulmonary granuloma. Calcified right lo wer lobe pulmonary granulomas. The lung bases are clear of infiltrate or consolidation. Trace pericardial fluid. No pleural effusion. Status post cholecystectomy. No hepatic, splenic, pancreatic or adrenal space-occupying mass lesion i s detected. Splenic size is within normal range. No bile duct or pancreatic duct dilatation. Multiple bilateral renal masses are again noted; the majority these are likely cysts. Again noted is an approximately 2.7 cm irregular partially exophytic mass of the anterior upper pole of left kidney which was attributed to a hypernephroma on MRA abdomen examination. There is atherosclerotic calcification but normal caliber of the abdominal aorta. There is prominent calcification at the origins of the renal arteries. No intraperitoneal or retroperitoneal or pelvic m ass lesion or adenopathy is noted. No bowel obstruction, bowel wall thickening, pneumatosis or intraperitoneal free air. Left sided placement of peritoneal dialysis catheter. There is trace ascites. Prostate enlargement. The urinary bladder is evacuated. The bladder wall appears relatively prominent in thickness which may be due to evacuation and possibly prostatomegaly. Since 02/12/2023 there is prominent edema or fluid accumulation of the scrotal sac. Again noted are bilateral fat-containing inguinal hernias. Diffuse idiopathic skeletal hyperostosis of the thoracolumbar spine. IMPRESSION: Prominent fluid accumulation and/or edema of the scrotum, new since 02/12/2023 Bilateral fat-containing inguinal hernias Prostate enlargement Peritoneal dialysis catheter Approximately 2.7 cm anterior upper pole left hypernephroma Multiple bilateral renal cysts Status post cholecystectomy Reviewed, dictated and finalized at Location A. Reviewed, dictated and finalized at location B. IMPRESSION: Prominent fluid accumulation and/or edema of the scrotum, new sinc e 02/12/2023 Bilateral fat-containing inguinal hernias Prostate enlargement Peritoneal dialysis catheter Approximately 2.7 cm anterior upper pole left hypernephroma Multiple bilateral renal cysts Status post cholecystectomy
== END 2023-07-08 09:44 ==
LOC: GOSHIMG 09:44
PROVIDERS: PCP Family Medicine; Visit Provider Nurse Practitioner
DX: N50.89 Other specified disorders of the male genital organs (principal); K40.20 Bilateral inguinal hernia, without obstruction or gangrene, not specified as recurrent; N40.0 Benign prostatic hyperplasia without lower urinary tract symptoms; C64.2 Malignant neoplasm of left kidney, except renal pelvis; N28.1 Cyst of kidney, acquired; Z90.49 Acquired absence of other specified parts of digestive tract; Z99.2 Dependence on renal dialysis
CPT/HCPCS: 74176

== ENCOUNTER 2023-08-09 09:34 | Emergency (ER) | payer MEDICARE, SELFPAY ==
[2023-08-09] VITALS (18 sets, daily range): BP systolic 124–163; BP diastolic 63–109; PULSE 55–73; RESP 12–19; TEMP 36.4–36.6; O2SAT 96–100
--- NOTE | 2023-08-09 10:01 | ED.NAVMDI ---
HPI - Nausea/Vomiting/Diarrhea General Chief complaint: Nausea/Vomiting/Diarrhea Stated complaint: n/v/d r/o cdiff Time Seen by Provider: 08/09/23 10:00 Source: patient and family ( ) Mode of arrival: ambulatory Limitations: no limitations History of Present Illness HPI Narrative: patient presents with concern for C difficile infection. He had presented with scrotal edema and a hernia and been seen by Urology would recommended he be placed on a course of antibiotics. These were later changed alternative antibiotics. Patient also underwent a dental procedure for which he was on antibiotics. He had hernia surgery approximately 2 weeks ago felt a little more ill. With past 1 week he has been having nausea and nonbloody vomiting. For approximately 2 weeks he has been having nonbloody diarrheal stools. He has a history of constipation so this is unusual although he has had a previous C difficile infection and, given the number of antibiotics he has been on, they were concerned. He denies any abdominal pain. He is dependent on peritoneal which he did last night without complication. Last oral intake was last night. He denies really having appetite. No fevers. Related Data Home Medications Medication Instructions Recorded Confirmed aspirin 81 mg tablet,delayed 81 mg PO DAILY 02/01/19 07/21/23 release (Sami Low Dose Aspirin) vit C 250 mg-vit E 200 unit-zinc 1 tablet PO Q12H 02/01/19 07/21/23 12.5 mg-copper 1 hc-jba-buerum tablet (ICaps AREDS2 (copper citrate)) blood sugar diagnostic (OneTouch 05/14/19 07/21/23 Ultra Blue Test Strip) carvedilol 25 mg tablet (Coreg) 25 mg PO Q12H 09/06/19 07/21/23 insulin glargine 100 unit/mL (3 40 unit subcut Q12H 10/12/21 07/21/23 mL) subcutaneous pen (Nuar Maya U-100 Insulin) lisinopril 20 mg tablet 20 mg PO HS 08/12/22 07/21/23 potassium chloride 10 mEq 10 meq PO 1400 08/12/22 07/21/23 capsule,extended release cholecalciferol (vitamin D3) 125 125 mcg PO 1400 10/01/22 07/21/23 mcg (5,000 unit) tablet (Vitamin D3) folic acid 0.8 mg-vit B comp with 1 tablet PO DAILY 10/01/22 07/21/23 S-djcy-iluorsw D3 2,000 unit tablet (Dialyvite 800-Ultra D) furosemide 80 mg tablet 160 mg PO BID 10/01/22 07/21/23 insulin aspart U-100 100 unit/mL See Rx Instructions .Route .COMPLEX 10/01/22 07/21/23 (3 mL) subcutaneous pen (Novolog FlexPen U-100 Insulin aspart) tamsulosin 0.4 mg capsule 0.4 mg PO HS 10/01/22 07/21/23 diphenhydramine 25 2 tablet PO HS 03/12/23 07/21/23 mg-acetaminophen 500 mg tablet (Tylenol PM Extra Strength) pantoprazole 40 mg tablet,delayed 40 mg PO HS 03/12/23 07/21/23 release duloxetine 30 mg capsule,delayed 30 mg PO DAILY depression 04/09/23 07/21/23 release clonidine 0.1 mg/24 hr weekly 2 patch transdermal WEEKLY 07/21/23 07/21/23 transdermal patch Allergies Allergy/AdvReac Type Severity Reaction Status Date / Time oxycodone AdvReac Intermediate Hallucinati Verified 08/09/23 09:42 ng PMFSH Past Medical History Medical History (Updated 08/10/23 @ 00:00 by Esteban Obrien) 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 Adult hypothyroidism Anemia Anxiety Chronic diastolic (congestive) heart failure Chronic GERD Cirrhosis COVID-19 Diabetes Dysphagia End stage renal disease History of constipation History of kidney cancer Hx of Clostridium difficile infection Hy kid NOS w cr kid I-IV Hypercholesterolemia Hypertension Increased prostate specific antigen (PSA) velocity Left kidney mass Neoplasm of kidney SHABNAM (obstructive sleep apnea) Peritoneal dialysis status Pituitary tumor Rhinitis Urinary tract infection Viral URI Surgical History Surgical History (Updated 08/09/23 @ 10:11 by Ruth Fontenot MD) Adenoma of pituitary History of cholecystectomy History of partial nephrectomy S/P hernia surgery July [address] [facility] [address] Torres Status post left cataract extrac
[2023-08-09 10:12] LABS: Basophils Percent Auto 0.1 % (0.2-1.2); Eosinophils Percent Auto 0.3 % (0-4.4); Hematocrit 32.1 % (42.0-52.0); Hemoglobin 10.3 g/dL (14.0-18.0); Immature Granulocyte Absolute 0.18 K/mm3 (0.00-0.031); Immature Granulocyte Percent A 1.9 % (0-0.5); Lymphocytes Absolute Auto 0.73 K/mm3 (0.9-3.2); Lymphocytes Percent Auto 7.9 % (18.3-44.2); Mean Corpuscular HGB Conc 32.1 g/dl (32-36); Mean Corpuscular Hemoglobin 30.7 pg (26-34); Mean Corpuscular Volume 95.5 fl (80-100); Mean Platelet Volume 10.2 fl (7.4-10.4); Monocytes Absolute Auto 1.1 K/mm3 (0.1-0.6); Monocytes Percent Auto 11.6 % (2.6-8.5); Neutrophils Absolute Auto 7.3 K/mm3 (1.3-6.7); Neutrophils Percent Auto 78.2 % (45.5-73.1); Platelet Count Result 212 k/mm3 (150-375); Red Blood Count 3.36 M/mm3 (4.6-6.20); Red Cell Distribution Width 14.8 % (11.5-14.5); White Blood Count 9.3 K/mm3 (4.5-10.0)
[2023-08-09 10:25] LABS: Alanine Aminotransferase 22 U/L (6-50); Albumin Level 4.1 g/dL (3.5-5.1); Alkaline Phosphatase 114 U/L (38-126); Anion Gap 15 mmol/L (4-12); Aspartate Amino Transferase 28 U/L (17-59); Bilirubin,Total 0.4 mg/dL (0.2-1.3); Blood Urea Nitrogen 80 mg/dL (9-20); Calcium 8.9 mg/dL (8.4-10.2); Carbon Dioxide 20 mmol/L (22-30); Chloride 100 mmol/L (98-107); Estimated CRCL calculation 7 ml/min; Estimated Glomerular Filt Rate 5; Glucose 141 mg/dL (65-110); Lipase 212 U/L (23-300); Potassium 6.2 mmol/L (3.4-5.0); Sodium 135 mmol/L (137-145)
--- NOTE | 2023-08-09 10:26 | ECG_ITS ---
Test Date: 2023-08-09 11:02:45 Measurements Intervals [place] Rate: 60 P: 60 [place]: 171 QRS: -74 QRSD: 134 T: 63 QT: 436 QTc: 437 Interpretive Statements SINUS RHYTHM RIGHT BUNDLE BRANCH BLOCK [120+ ms QRS DURATION, UPRIGHT V1, 40+ ms S IN I/aVL/V4/V5/V6] LEFT ANTERIOR FASCICULAR BLOCK [QRS AXIS <= -45, QR IN I, RS IN II] ABNORMAL ECG No previous ECG available for comparison Electronically Signed On 08-10-2023 08:24:26 CDT by Elroy Miranda M.D.
[2023-08-09] MEDS: ALBUTEROL SULFATE NEB 2.5 MG/3 ML INH 10 MG INHALATION (10:43)
[2023-08-09] MEDS: SODIUM CHLORIDE 0.9% IV 500 ML 999 ML IV CONT (10:44)
[2023-08-09] MEDS: ONDANSETRON INJ 4 MG/2 ML VIAL IV PUSH (10:45)
[2023-08-09] MEDS: FUROSEMIDE INJ 40 MG/4 ML VIAL IV PUSH (10:52)
[2023-08-09] MEDS: DEXTROSE 50% 25 GM/50 ML SYRINGE IV PUSH (10:53)
[2023-08-09] MEDS: CALCIUM GLUCONATE 1,000 MG/10 ML VIAL 1000 MG IV PUSH (10:55)
[2023-08-09] MEDS: SODIUM BICARBONATE 8.4% 50 MEQ/50 ML SYRINGE IV PUSH (10:59)
[2023-08-09] MEDS: INSULIN HUMAN REGULAR (*BKC) 100 UNITS/ML IV PUSH (11:01)
[2023-08-09 11:02] LABS: Influenza A QL RT-PCR Negative (Negative); Influenza B QL RT-PCR Negative (Negative); SARS-CoV-2 RNA PCR Negative (Negative)
[2023-08-09] MEDS: MAGNESIUM SULF 2 GM/WATER 50ML 2 GM/50 ML BAG IVPB (11:02)
[2023-08-09 12:13] LABS: Appearance Urine Clear (Clear); Bacteria Urine None Seen /hpf; Bilirubin Urine Negative (Negative); Blood Urine Negative (Negative); Color Urine Yellow (Yellow); Glucose Urine UA Trace mg/dL (Negative); Ketones Urine Negative (Negative); Leukocyte Esterase Ur Negative LEU/UL (Negative); Nitrate Urine Negative (Negative); Non Pathogenic Casts 0-2; Protein Urine 3+ mg/dL (Negative); RBC Urine 0-2 /hpf (0-2); Specific Grav Ur 1.012 (1.001-1.035); Squamous Epithelial Cell Urine None Seen /hpf (Few); Urobilinogen Urine 0.2 mg/dL (<2.0)
[2023-08-09 12:20] LABS: Add Urine Microscopic? YES
[2023-08-09 13:09] LABS: Magnesium 1.5 mg/dL (1.6-2.3)
[2023-08-09 13:10] LABS: Anion Gap 16 mmol/L (4-12); Blood Urea Nitrogen 82 mg/dL (9-20); Calcium 9.1 mg/dL (8.4-10.2); Carbon Dioxide 19 mmol/L (22-30); Chloride 101 mmol/L (98-107); Estimated CRCL calculation 7 ml/min; Estimated Glomerular Filt Rate 5; Glucose 84 mg/dL (65-110); Potassium 6.2 mmol/L (3.4-5.0); Sodium 136 mmol/L (137-145)
[2023-08-09 14:27] LABS: Anion Gap 14 mmol/L (4-12); Blood Urea Nitrogen 80 mg/dL (9-20); Calcium 9.1 mg/dL (8.4-10.2); Carbon Dioxide 22 mmol/L (22-30); Chloride 101 mmol/L (98-107); Estimated CRCL calculation 7 ml/min; Estimated Glomerular Filt Rate 5; Glucose 79 mg/dL (65-110); Potassium 5.9 mmol/L (3.4-5.0); Sodium 137 mmol/L (137-145)
[2023-08-09] MEDS: SODIUM ZIRCONIUM CYCLOSILICATE 10 GM POWD.PACK PO (15:14)
[2023-08-09] MEDS: FUROSEMIDE INJ 100 MG/10 ML VIAL 80 MG IV PUSH (15:14)
== END 2023-08-09 15:58 | disposition left against medical advice (07) ==
PROVIDERS: Emergency Medicine; Emergency Provider Student in an Organized Health Care Education/Training Program; PCP Family Medicine
DX: R11.2 Nausea with vomiting, unspecified (principal); R19.7 Diarrhea, unspecified; E87.5 Hyperkalemia; D64.9 Anemia, unspecified; E83.42 Hypomagnesemia; I45.2 Bifascicular block; R82.81 Pyuria; I13.2 Hypertensive heart and chronic kidney disease with heart failure and with stage 5 chronic kidney disease, or end stage renal disease; N18.6 End stage renal disease; Z20.822 Contact with and (suspected) exposure to COVID-19; I50.32 Chronic diastolic (congestive) heart failure; E11.22 Type 2 diabetes mellitus with diabetic chronic kidney disease; E03.9 Hypothyroidism, unspecified; E78.00 Pure hypercholesterolemia, unspecified; K21.9 Gastro-esophageal reflux disease without esophagitis; G47.33 Obstructive sleep apnea (adult) (pediatric); F41.9 Anxiety disorder, unspecified; Z99.2 Dependence on renal dialysis; Z95.5 Presence of coronary angioplasty implant and graft; Z96.651 Presence of right artificial knee joint; Z85.528 Personal history of other malignant neoplasm of kidney; Z86.16 Personal history of COVID-19; Z87.440 Personal history of urinary (tract) infections; Z90.49 Acquired absence of other specified parts of digestive tract; Z90.5 Acquired absence of kidney; Z98.42 Cataract extraction status, left eye; Z79.4 Long term (current) use of insulin; Z79.82 Long term (current) use of aspirin; Z79.899 Other long term (current) drug therapy
CPT/HCPCS: 36415; 80048; 80053; 81001; 83690; 83735; 85025; 87086; 87636; 93005; 94640; 96361; 96365; 96375; 99284; A9270; J0612; J1815; J1940; J2405; J3475; J7040

== ENCOUNTER 2023-08-15 12:25 | Emergency (ER) | payer MEDICARE, SELFPAY ==
--- NOTE | ~2023-08-15 | CT_ITS ---
CT abdomen pelvis wo con Ordering provider: Ranjeet Eaton MD History: 68 years Male with . ab pain . Comparison: July 08, 2023 Technique: CT abdomen and pelvis without IV and without oral contrast. Automated exposure control and iterative reconstruction technique were employed. The dose-length product was 1301.86 mGy-cm. Findings: VISUALIZED LOWER CHEST: Dependent atelectatic changes. Healing fractures in the lower thoracic area a nteriorly. Nodule in the left lower lobe posteriorly measuring 7 mm. Trace of pericardial effusion. UPPER ABDOMINAL ORGANS: Liver: Normal. Gallbladder: Status post cholecystectomy. Spleen: Normal. Stomach/duodenum: Slightly thickened wall of the stomach. Pancreas: Normal. Adrenals: Normal. Kidneys: Atrophic right kidney. Multiple bilateral renal cysts. Calcified cyst is seen in the right k idney lower and mid pole. Hypodense cysts are also seen in the left kidney which may be hemorrhagic. Calcifications in the left kidney lower pole which may be in the wall of the cyst or stones. Calcific ation also seen in the right kidney lower pole which may be a calcification the wall of the cyst or s tones. PELVIC ORGANS: The bladder shows thickened wall of the urinary bladder. BOWEL AND MESENTERY: Colon: No evidence of diverticulitis.. No evidence of appendicitis. Small Bowel: Normal. No obstruction. Peritoneum/mesentery: No free air. Significant Free fluid suggestive of ascites. Dialysis catheter is seen in the pelvic area. No mesenteric lymphadenopathy. RETROPERITONEUM: Mild atheromatous disease of the abdominal aorta. No retroperitoneal lymphadenopat hy. MUSCULOSKELETAL: Superficial soft tissues: Bilateral fat containing inguinal areas. Otherwise, The superficial soft ti ssues are normal. Bones: Age appropriate degenerative changes of the spine. IMPRESSION: 1. Trace of pericardial effusion. 2. Nodule in the left lower lobe. Follow-up in 3-6 months advised. 3. Healing rib fractures in the lower thorax bilaterally. 4. Gross ascites. 5. Bilateral renal cysts with calcifications which may be in the wall of the cysts or stones. Atroph ic right kidney. 6. Peritoneal dialysis catheter is seen in the pelvis. 7. Bilateral fat containing inguinal hernias. 8. Thickened wall of the urinary bladder with possibility of cystitis. Clinical evaluation advised. Reviewed, dictated and finalized at location A. IMPRESSION: 1. Trace of pericardial effusion. 2. Nodule in the left lower lobe. Follow-up in 3-6 months advised. 3. Healing rib fractures in the lower thorax bilaterally. 4. Gross ascites. 5. Bilateral renal cysts with calcifications which may be in the wall of the c ysts or stones. Atrophic right kidney. 6. Peritoneal dialysis catheter is seen in the pelvis. 7. Bilateral fat containing inguinal hernias. 8. Thickened wall of the urinary bladder with possibility of cystitis. Clinica l evaluation advised.
[2023-08-15 12:33] VITALS: BP 147/75; PULSE 57; RESP 18; TEMP 36.4; O2SAT 100
--- NOTE | 2023-08-15 12:41 | ED.ABDPAIN ---
HPI - Abdominal Pain General Chief Complaint: Abdominal Pain Stated Complaint: abd pain, dizzy, nauseous Time Seen by Provider: 08/15/23 15:18 Focused HPI: 68-year-old male with history of SHABNAM, hypertension, hyperlipidemia, CHF, GERD, ESRD on peritoneal dialysis presents to the emergency department for right inguinal hernia pain for 2 weeks. Patient states he underwent a inguinal hernia repair at [facility] 2 weeks ago. States he has been having pain in this area since. He saw his surgeon 2 days ago who evaluated him and reported that his abdomen felt fine but advised to go to the ED if his pain persist or worsen. Patient states his pain is persisted which prompted come to the ED today. Denies fever. Last bowel movement was 3 days ago and normal. Denies decrease in flatulence, dysuria or hematuria GENERAL: Well-appearing, well-nourished, and in no acute distress. HEAD: Normocephalic, atraumatic. CHEST: Clear to auscultation. ?No respiratory distress. ABD: peritoneal dialysis port in place. Well-healed right lower quadrant surgical incision without dehiscence, surrounding erythema, induration or fluctuation. Minimal tenderness to the right lower quadrant without palpable hernia. HEART: Regular rate and rhythm.? NEURO: ?Alert and oriented x3. Patient screened in triage and initial orders placed.? ?Additional care and disposition to be based upon?diagnostic testing and treatment. Related Data Home Medications Medication Instructions Recorded Confirmed aspirin 81 mg tablet,delayed 81 mg PO DAILY 02/01/19 08/11/23 release (Sami Low Dose Aspirin) vit C 250 mg-vit E 200 unit-zinc 1 tablet PO Q12H 02/01/19 08/11/23 12.5 mg-copper 1 vc-lic-vumrfy tablet (ICaps AREDS2 (copper citrate)) blood sugar diagnostic (OneTouch 05/14/19 08/11/23 Ultra Blue Test Strip) carvedilol 25 mg tablet (Coreg) 25 mg PO Q12H 09/06/19 08/11/23 insulin glargine 100 unit/mL (3 40 unit subcut Q12H 10/12/21 08/11/23 mL) subcutaneous pen (Basaglar KwikPen U-100 Insulin) lisinopril 20 mg tablet 20 mg PO HS 08/12/22 08/11/23 potassium chloride 10 mEq 10 meq PO 1400 08/12/22 08/11/23 capsule,extended release cholecalciferol (vitamin D3) 125 125 mcg PO 1400 10/01/22 08/11/23 mcg (5,000 unit) tablet (Vitamin D3) folic acid 0.8 mg-vit B comp with 1 tablet PO DAILY 10/01/22 08/11/23 M-hlfx-wybtjuc D3 2,000 unit tablet (Dialyvite 800-Ultra D) furosemide 80 mg tablet 160 mg PO BID 10/01/22 08/11/23 insulin aspart U-100 100 unit/mL See Rx Instructions .Route .COMPLEX 10/01/22 08/11/23 (3 mL) subcutaneous pen (Novolog FlexPen U-100 Insulin aspart) tamsulosin 0.4 mg capsule 0.4 mg PO HS 10/01/22 08/11/23 diphenhydramine 25 2 tablet PO HS 03/12/23 08/11/23 mg-acetaminophen 500 mg tablet (Tylenol PM Extra Strength) pantoprazole 40 mg tablet,delayed 40 mg PO HS 03/12/23 08/11/23 release duloxetine 30 mg capsule,delayed 30 mg PO DAILY depression 04/09/23 08/11/23 release clonidine 0.1 mg/24 hr weekly 2 patch transdermal WEEKLY 07/21/23 08/11/23 transdermal patch Allergies Allergy/AdvReac Type Severity Reaction Status Date / Time oxycodone AdvReac Intermediate Hallucinati Verified 08/11/23 14:00 ng PMFSH Past Medical History Medical History 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 Adult hypothyroidism Anemia Anxiety Chronic diastolic (congestive) heart failure Chronic GERD Cirrhosis COVID-19 Diabetes Dysphagia End stage renal disease History of constipation History of kidney cancer Hx of Clostridium difficile infection Hy kid NOS w cr kid I-IV Hypercholesterolemia Hypertension Increased prostate specific antigen (PSA) velocity Left kidney mass Neoplasm of kidney SHABNAM (obstructive sleep apnea) Peritoneal dialysis status Pituitary tumor Rhinitis Urinary tract infection Viral URI Surgical History Surgi
--- NOTE | 2023-08-15 13:47 | PC.NURSE ---
attempted blood work in triage x2 and patient states they usually need ultrasound to get blood. they also state that they produce urine 2-3 times per weeks due to kidney issues.
[2023-08-15 14:52] LABS: Appearance Urine Clear (Clear); Bacteria Urine None Seen /hpf; Bilirubin Urine Negative (Negative); Blood Urine Negative (Negative); Color Urine Yellow (Yellow); Glucose Urine UA Negative (Negative); Ketones Urine Negative (Negative); Leukocyte Esterase Ur 1+ LEU/UL (Negative); Nitrate Urine Negative (Negative); Non Pathogenic Casts 0-2; Protein Urine 3+ mg/dL (Negative); RBC Urine 0-2 /hpf (0-2); Specific Grav Ur 1.015 (1.001-1.035); Squamous Epithelial Cell Urine None Seen /hpf (Few); Urobilinogen Urine 0.2 mg/dL (<2.0); pH Urine 5.5 (5.0-9.0)
[2023-08-15 14:54] LABS: Add Urine Microscopic? YES
[2023-08-15 16:17] LABS: Basophils Percent Auto 0.2 % (0.2-1.2); Eosinophils Percent Auto 0.4 % (0-4.4); Hematocrit 34.8 % (42.0-52.0); Hemoglobin 11.3 g/dL (14.0-18.0); Immature Granulocyte Percent A 3.9 % (0-0.5); Lymphocytes Absolute Auto 0.85 K/mm3 (0.9-3.2); Lymphocytes Percent Auto 8.3 % (18.3-44.2); Mean Corpuscular HGB Conc 32.5 g/dl (32-36); Mean Corpuscular Hemoglobin 30.5 pg (26-34); Mean Corpuscular Volume 94.1 fl (80-100); Mean Platelet Volume 11.2 fl (7.4-10.4); Monocytes Absolute Auto 1.2 K/mm3 (0.1-0.6); Monocytes Percent Auto 11.5 % (2.6-8.5); Neutrophils Absolute Auto 7.8 K/mm3 (1.3-6.7); Neutrophils Percent Auto 75.7 % (45.5-73.1); Nucleated Red Blood Cells Perc 0.3 % (0.0-0.2); Platelet Count Result 185 k/mm3 (150-375); Red Cell Distribution Width 14.8 % (11.5-14.5); White Blood Count 10.3 K/mm3 (4.5-10.0)
[2023-08-15 16:28] LABS: Alanine Aminotransferase 23 U/L (6-50); Albumin Level 4.3 g/dL (3.5-5.1); Alkaline Phosphatase 85 U/L (38-126); Anion Gap 17 mmol/L (4-12); Aspartate Amino Transferase 26 U/L (17-59); Bilirubin,Total 0.5 mg/dL (0.2-1.3); Blood Urea Nitrogen 74 mg/dL (9-20); Carbon Dioxide 23 mmol/L (22-30); Chloride 95 mmol/L (98-107); Estimated CRCL calculation 7 ml/min; Estimated Glomerular Filt Rate 5; Glucose 118 mg/dL (65-110); Lipase 88 U/L (23-300); Potassium 4.9 mmol/L (3.4-5.0); Sodium 135 mmol/L (137-145)
--- NOTE | 2023-08-15 16:49 | ED.ABDPAIN ---
HPI - Abdominal Pain General Chief Complaint: Abdominal Pain Stated Complaint: abd pain, dizzy, nauseous Time Seen by Provider: 08/15/23 15:18 History of Present Illness HPI narrative: 68-year-old male presenting to the emergency department for evaluation for a rash on his groin and generalized weakness. Patient was started on nystatin by his primary care physician but has not yet started the medication. Patient was complaining of abdominal burning as well. states the patient has also had decreased p.o. intake Related Data Home Medications Medication Instructions Recorded Confirmed aspirin 81 mg tablet,delayed 81 mg PO DAILY 02/01/19 08/11/23 release (Sami Low Dose Aspirin) vit C 250 mg-vit E 200 unit-zinc 1 tablet PO Q12H 02/01/19 08/11/23 12.5 mg-copper 1 mf-wgr-rtvxvq tablet (ICaps AREDS2 (copper citrate)) blood sugar diagnostic (OneTouch 05/14/19 08/11/23 Ultra Blue Test Strip) carvedilol 25 mg tablet (Coreg) 25 mg PO Q12H 09/06/19 08/11/23 insulin glargine 100 unit/mL (3 40 unit subcut Q12H 10/12/21 08/11/23 mL) subcutaneous pen (Basaglar KwikPen U-100 Insulin) lisinopril 20 mg tablet 20 mg PO HS 08/12/22 08/11/23 potassium chloride 10 mEq 10 meq PO 1400 08/12/22 08/11/23 capsule,extended release cholecalciferol (vitamin D3) 125 125 mcg PO 1400 10/01/22 08/11/23 mcg (5,000 unit) tablet (Vitamin D3) folic acid 0.8 mg-vit B comp with 1 tablet PO DAILY 10/01/22 08/11/23 A-hczw-fzojofo D3 2,000 unit tablet (Dialyvite 800-Ultra D) furosemide 80 mg tablet 160 mg PO BID 10/01/22 08/11/23 insulin aspart U-100 100 unit/mL See Rx Instructions .Route .COMPLEX 10/01/22 08/11/23 (3 mL) subcutaneous pen (Novolog FlexPen U-100 Insulin aspart) tamsulosin 0.4 mg capsule 0.4 mg PO HS 10/01/22 08/11/23 diphenhydramine 25 2 tablet PO HS 03/12/23 08/11/23 mg-acetaminophen 500 mg tablet (Tylenol PM Extra Strength) pantoprazole 40 mg tablet,delayed 40 mg PO HS 03/12/23 08/11/23 release duloxetine 30 mg capsule,delayed 30 mg PO DAILY depression 04/09/23 08/11/23 release clonidine 0.1 mg/24 hr weekly 2 patch transdermal WEEKLY 07/21/23 08/11/23 transdermal patch Allergies Allergy/AdvReac Type Severity Reaction Status Date / Time oxycodone AdvReac Intermediate Hallucinati Verified 08/11/23 14:00 sony 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 Adult hypothyroidism Anemia Anxiety Chronic diastolic (congestive) heart failure Chronic GERD Cirrhosis COVID-19 Diabetes Dysphagia End stage renal disease History of constipation History of kidney cancer Hx of Clostridium difficile infection Hy kid NOS w cr kid I-IV Hypercholesterolemia Hypertension Increased prostate specific antigen (PSA) velocity Left kidney mass Neoplasm of kidney SHABNAM (obstructive sleep apnea) Peritoneal dialysis status Pituitary tumor Rhinitis Urinary tract infection Viral URI Surgical History Surgical History Adenoma of pituitary History of cholecystectomy History of partial nephrectomy S/P hernia surgery July 2023 [facility] Dr Torres Status post left cataract extraction Status post right knee replacement Status post total right knee replacement Stented coronary artery Family History Family History Mother Hypertension Cerebrovascular accident Aneurysm Father Family history of malignant neoplasm Carcinoma of colon Social History Social History Social History: Patient lives at home with his Harriet who will be his surrogate. Patient a nonsmoker and drinks very rarel
[2023-08-15 16:59] VITALS: BP 150/83; PULSE 54; RESP 18; O2SAT 99
[2023-08-15] MEDS: CIPROFLOXACIN 500 MG TAB PO (17:00)
== END 2023-08-15 17:18 | disposition home or self-care (01) ==
PROVIDERS: Physician Assistant; Emergency Provider Emergency Medicine; PCP Family Medicine
DX: N39.0 Urinary tract infection, site not specified (principal); I13.2 Hypertensive heart and chronic kidney disease with heart failure and with stage 5 chronic kidney disease, or end stage renal disease; I50.32 Chronic diastolic (congestive) heart failure; N18.6 End stage renal disease; E11.22 Type 2 diabetes mellitus with diabetic chronic kidney disease; Z79.899 Other long term (current) drug therapy; Z79.4 Long term (current) use of insulin
CPT/HCPCS: 36415; 74176; 80053; 81001; 83690; 85025; 87086; 99284; A9270

== ENCOUNTER 2023-08-19 14:14 | Emergency (ER) | payer MEDICARE, SELFPAY ==
[2023-08-19] VITALS (14 sets, daily range): BP systolic 130–159; BP diastolic 59–90; PULSE 60–65; RESP 12–20; TEMP 36.4; O2SAT 98–100
--- NOTE | ~2023-08-19 | CT_ITS ---
EXAMINATION: CT abdomen pelvis w con DATE: 08/19/2023 16:47 INDICATION: Nausea, vomiting and diarrhea 2 weeks post hernia surgery TECHNIQUE: Computed tomography (CT) of the abdomen and pelvis was performed with 100 mL Omnipaque-350 intravenous contrast. Automated exposure control and iterative reconstruction technique were employe d. The dose-length product was 1177.56 mGy-cm. COMPARISON: 08/15/2023, 07/08/2023 and 04/29/2021 FINDINGS: Mild left basilar atelectasis. Likely benign 6 mm nodule at the left lower lobe without interval robles ge since 04/29/2021. No pleural effusion. Heart size is normal. Atherosclerotic coronary artery calcif ic lesion. Dense mitral annular calcific lesion. Unchanged minimal pericardial effusion. Callus forma tion about subacute healing nondisplaced fractures of the anterior right sixth-eighth ribs and anteri or left fifth rib. Cholecystectomy clips the gallbladder fossa. Liver, pancreas and bilateral adrenal glands are normal. Indeterminate 1.7 cm hypodense/hypoenhancing lesion in the spleen which is more subtle but appears u nchanged in size on noncontrast CT dated 01/31/2023 most likely benign cyst or hemangioma. Again seen are multiple bilateral simple and proteinaceous/hemorrhagic renal cysts, the largest on the left bon suring up to 5.1 cm. Postoperative changes at the anterolateral upper pole of the right kidney sugges ting prior partial nephrectomy. Subtle 2.4 cm enhancing mass at the medial upper pole of the left kid ashlyn consistent with renal cell carcinoma there are few atherosclerotic calcification at the bilateral renal desire. Small amount of ascites scattered throughout the abdomen and pelvis likely related to peritoneal dial ysis with a left lower quadrant peritoneal dialysis catheter coiled in the deep right pelvis. No absc ess or free intraperitoneal gas. There is increased fat in the bilateral inguinal canals consistent w ith fat-containing inguinal hernias. The amount of fat the right inguinal canal has decreased since s brittny dated 07/08/2023 and there is mild stranding stranding along a likely recent surgical wound at th e right groin consistent with provided history of hernia repair. Bowels including the appendix appendix are normal with no obstruction. Decompressed bladder is unrema rkable. Prostatomegaly measuring 5.4 x 5.4 cm. No pathologically enlarged abdominal or pelvic lymphad enopathy. There is calcified atherosclerosis of the aorta and many of the other arteries. There are b ridging osteophytes at multiple levels extending from the midthoracic to the upper lumbar spine consi stent with diffuse idiopathic skeletal hyperostosis (DISH). IMPRESSION: 1. Stable appearance of a recent right inguinal hernia repair. 2. Small amount of ascites scattered throughout the abdomen and pelvis likely related to peritoneal d ialysis. 3. 2.4 cm enhancing mass at the upper pole the left kidney consistent with renal cell carcinoma. 4. 1.7 cm hypodense/hypoenhancing splenic lesion without change since 01/31/2023 most likely benign c yst or hemangioma but could consider follow-up with pre and postcontrast MRI as clinically indicated. Reviewed, dictated and finalized at location B. IMPRESSION: 1. Stable appearance of a recent right inguinal hernia repair. 2. Small amount of ascites scattered throughout the abdomen and pelvis likely r elated to peritoneal dialysis. 3. 2.4 cm enhancing mass at the upper pole the left kidney consistent with naomie l cell carcinoma. 4. 1.7 cm hypodense/hypoenhancing splenic lesion without change since 3 most likely benign cyst or hemangioma but could consider follow-up with pre a nd postcontrast MRI as clinically indicated.
--- NOTE | ~2023-08-19 | CT_ITS ---
CT brain wo con Ordering provider: Amber Andrews MD History: 68 years Male with . fall . Comparison: April 26, 2023 Technique: CT of the head without contrast. Radiation reduction technique utilized. DLP 681 mGy. BRAIN PARENCHYMA AND CSF SPACES: Mild leukoaraiosis and diffuse cortical atrophy. Mild atheromatous d isease. No midline shift, mass effect or hemorrhage. The brain parenchyma and CSF spaces are otherwi se normal. Multiple tiny foci of calcifications are seen in the interval and supra tentorial areas wh ich are unchanged from previous examination. VISUALIZED PARANASAL SINUSES: Right maxillary sinus disease.. MASTOIDS: Well aerated. BONES: The bones appear intact. SOFT TISSUES: Visualized nasopharynx is normal. Superficial soft tissues are normal. IMPRESSION: No acute intracranial findings. Reviewed, dictated and finalized at location A.
--- NOTE | 2023-08-19 15:30 | ED.GENADULT ---
HPI - General Adult General Chief complaint: Abdominal Pain Stated complaint: hernia repair 2 wks ago, abd pain after falling Time Seen by Provider: 08/19/23 15:30 Source: patient and family Mode of arrival: ambulatory Limitations: no limitations History of Present Illness HPI narrative: 68 YEARS OLD WHITE MALE CAME TO THE ED BY CAR COMPLAINING OF INCREASED PAIN AT THE RIGHT LOWER ABDOMEN STATUS POST RIGHT INGUINAL HERNIA REPAIR 2 WEEKS AGO. HISTORY OF BALANCE DISORDER FOR YEARS, GOT WORSE AFTER HAVING THE SURGERY. HAD A FALL LAST NIGHT, LANDED ON THE RIGHT SIDE OF HIS ABDOMEN, CONCERN ABOUT COMPLICATION OR PROBLEM WITH SURGERY. PATIENT ALSO REPORTS ITCHING HIVES ALL OVER HIS BODY STARTED 1 WEEK AGO. USED TO BE ON OXYCODONE WHICH STOPPED 4 DAYS AGO. PATIENT ON PERITONEAL DIALYSIS SINCE 2021. HE DENIES ANY FEVER, CHILLS, NAUSEA, VOMITING, DIARRHEA OR CONSTIPATION OR URINARY SYMPTOMS Related Data Home Medications Medication Instructions Recorded Confirmed aspirin 81 mg tablet,delayed 81 mg PO DAILY 02/01/19 08/11/23 release (Sami Low Dose Aspirin) vit C 250 mg-vit E 200 unit-zinc 1 tablet PO Q12H 02/01/19 08/11/23 12.5 mg-copper 1 nr-pcv-ypvdnf tablet (ICaps AREDS2 (copper citrate)) blood sugar diagnostic (OneTouch 05/14/19 08/11/23 Ultra Blue Test Strip) carvedilol 25 mg tablet (Coreg) 25 mg PO Q12H 09/06/19 08/11/23 insulin glargine 100 unit/mL (3 40 unit subcut Q12H 10/12/21 08/11/23 mL) subcutaneous pen (Basaglar KwikPen U-100 Insulin) lisinopril 20 mg tablet 20 mg PO HS 08/12/22 08/11/23 potassium chloride 10 mEq 10 meq PO 1400 08/12/22 08/11/23 capsule,extended release cholecalciferol (vitamin D3) 125 125 mcg PO 1400 10/01/22 08/11/23 mcg (5,000 unit) tablet (Vitamin D3) folic acid 0.8 mg-vit B comp with 1 tablet PO DAILY 10/01/22 08/11/23 Y-qojq-vaombzu D3 2,000 unit tablet (Dialyvite 800-Ultra D) furosemide 80 mg tablet 160 mg PO BID 10/01/22 08/11/23 insulin aspart U-100 100 unit/mL See Rx Instructions .Route .COMPLEX 10/01/22 08/11/23 (3 mL) subcutaneous pen (Novolog FlexPen U-100 Insulin aspart) tamsulosin 0.4 mg capsule 0.4 mg PO HS 10/01/22 08/11/23 diphenhydramine 25 2 tablet PO HS 03/12/23 08/11/23 mg-acetaminophen 500 mg tablet (Tylenol PM Extra Strength) pantoprazole 40 mg tablet,delayed 40 mg PO HS 03/12/23 08/11/23 release duloxetine 30 mg capsule,delayed 30 mg PO DAILY depression 04/09/23 08/11/23 release clonidine 0.1 mg/24 hr weekly 2 patch transdermal WEEKLY 07/21/23 08/11/23 transdermal patch Allergies Allergy/AdvReac Type Severity Reaction Status Date / Time oxycodone AdvReac Intermediate Hallucinati Verified 08/11/23 14:00 ng 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 Adult hypothyroidism Anemia Anxiety Chronic diastolic (congestive) heart failure Chronic GERD Cirrhosis COVID-19 Diabetes Dysphagia End stage renal disease History of constipation History of kidney cancer Hx of Clostridium difficile infection Hy kid NOS w cr kid I-IV Hypercholesterolemia Hypertension Increased prostate specific antigen (PSA) velocity Left kidney mass Neoplasm of kidney SHABNAM (obstructive sleep apnea) Peritoneal dialysis status Pituitary tumor Rhinitis Urinary tract infection Viral URI Surgical History Surgical History Adenoma of pituitary History of cholecystectomy History of partial nephrectomy S/P hernia surgery July [address]23 [facility] [address] Torres Status post left cataract extraction Status post right knee replacement Status post total right knee replacement Stented coronary artery Family History Family History (Reviewed 08/19/23 @ 18:2
--- NOTE | 2023-08-19 15:31 | ECG_ITS ---
Test Date: 2023-08-19 17:09:25 Measurements Intervals [place] Rate: 63 P: 99 [place]: 159 QRS: -63 QRSD: 102 T: 74 QT: 443 QTc: 454 Interpretive Statements SINUS RHYTHM INCOMPLETE RIGHT BUNDLE BRANCH BLOCK LEFT ANTERIOR FASCICULAR BLOCK BASELINE ARTIFACT- I, II, AVR, AVL, AVF, V1-V5 ABNORMAL ECG Compared to ECG 08/09/2023 11:02:45 Right bundle-branch block no longer present Electronically Signed On 08-20-2023 06:21:17 CDT by Dilan Preciado D.O.
[2023-08-19] MEDS: MORPHINE SULFATE (*CRX) 4 MG/ML INJ IV PUSH (16:17)
[2023-08-19] MEDS: ONDANSETRON INJ 4 MG/2 ML VIAL IV PUSH (16:17)
[2023-08-19 16:36] LABS: Estimated CRCL calculation 9 ml/min; Estimated Glomerular Filt Rate 6
[2023-08-19 17:07] LABS: Basophils Percent Auto 0.1 % (0.2-1.2); Eosinophils Absolute Auto 0.2 K/mm3 (0-0.3); Eosinophils Percent Auto 1.3 % (0-4.4); Hematocrit 33.7 % (42.0-52.0); Hemoglobin 11.1 g/dL (14.0-18.0); Immature Granulocyte Absolute 0.39 K/mm3 (0.00-0.031); Immature Granulocyte Percent A 3.4 % (0-0.5); Lymphocytes Absolute Auto 0.81 K/mm3 (0.9-3.2); Lymphocytes Percent Auto 7.1 % (18.3-44.2); Mean Corpuscular HGB Conc 32.9 g/dl (32-36); Mean Corpuscular Hemoglobin 31.4 pg (26-34); Mean Corpuscular Volume 95.5 fl (80-100); Mean Platelet Volume 11.7 fl (7.4-10.4); Monocytes Absolute Auto 1.3 K/mm3 (0.1-0.6); Monocytes Percent Auto 11.5 % (2.6-8.5); Neutrophils Absolute Auto 8.8 K/mm3 (1.3-6.7); Neutrophils Percent Auto 76.6 % (45.5-73.1); Platelet Count Result 199 k/mm3 (150-375); Red Blood Count 3.53 M/mm3 (4.6-6.20); Red Cell Distribution Width 16.5 % (11.5-14.5); White Blood Count 11.5 K/mm3 (4.5-10.0)
[2023-08-19 17:18] LABS: Alanine Aminotransferase 22 U/L (6-50); Albumin Level 3.7 g/dL (3.5-5.1); Alkaline Phosphatase 103 U/L (38-126); Anion Gap 14 mmol/L (4-12); Aspartate Amino Transferase 26 U/L (17-59); Bilirubin,Total 0.6 mg/dL (0.2-1.3); Blood Urea Nitrogen 49 mg/dL (9-20); Calcium 8.1 mg/dL (8.4-10.2); Carbon Dioxide 25 mmol/L (22-30); Chloride 91 mmol/L (98-107); Estimated CRCL calculation 10 ml/min; Estimated Glomerular Filt Rate 7; Glucose 152 mg/dL (65-110); Lipase 97 U/L (23-300); Potassium 3.8 mmol/L (3.4-5.0); Sodium 130 mmol/L (137-145)
[2023-08-19 17:21] LABS: INR 1.1; Prothrombin Time 14.5 Seconds (11.1-14.7)
[2023-08-19 17:22] LABS: Partial Thromboplastin Time 30.4 Seconds (22.3-36.8)
[2023-08-19] MEDS: EPINEPHrine HCL INJ 1 MG/ML AMPUL 0.3 MG IM (18:15)
[2023-08-19] MEDS: diphenhydrAMINE HCl INJ 50 MG/ML VIAL 25 MG IV PUSH (18:15)
[2023-08-19] MEDS: predniSONE 20 MG TABLET 60 MG PO (18:15)
== END 2023-08-19 18:45 | disposition home or self-care (01) ==
PROVIDERS: Emergency Provider Emergency Medicine; PCP Family Medicine
DX: R10.31 Right lower quadrant pain (principal); T78.40XA Allergy, unspecified, initial encounter; I13.2 Hypertensive heart and chronic kidney disease with heart failure and with stage 5 chronic kidney disease, or end stage renal disease; I50.32 Chronic diastolic (congestive) heart failure; N18.6 End stage renal disease; E11.22 Type 2 diabetes mellitus with diabetic chronic kidney disease; E03.9 Hypothyroidism, unspecified; E78.00 Pure hypercholesterolemia, unspecified; K21.9 Gastro-esophageal reflux disease without esophagitis; R26.89 Other abnormalities of gait and mobility; F41.9 Anxiety disorder, unspecified; Z99.2 Dependence on renal dialysis; Z95.5 Presence of coronary angioplasty implant and graft; Z96.651 Presence of right artificial knee joint; Z85.528 Personal history of other malignant neoplasm of kidney; Z86.16 Personal history of COVID-19; Z87.440 Personal history of urinary (tract) infections; Z90.49 Acquired absence of other specified parts of digestive tract; Z90.5 Acquired absence of kidney; Z98.42 Cataract extraction status, left eye; Z79.4 Long term (current) use of insulin; Z79.82 Long term (current) use of aspirin; Z79.899 Other long term (current) drug therapy; N28.89 Other specified disorders of kidney and ureter; D73.9 Disease of spleen, unspecified; X58.XXXA Exposure to other specified factors, initial encounter
CPT/HCPCS: 36415; 70450; 74177; 80053; 83690; 85025; 85610; 85730; 93005; 96372; 96374; 96375; 99284; J0171; J1200; J2270; J2405; J7512; Q9967

== ENCOUNTER 2023-08-21 21:26 | Emergency (ER) | payer MEDICARE, SELFPAY ==
--- NOTE | ~2023-08-21 | US_ITS ---
Testicular ultrasound with doppler. Indication: Right testicular pain and swelling. Technique: Real-time sonography the scrotum was performed. Color flow Doppler and Doppler spectral an alysis were performed. Findings: The testes are homogeneous in echotexture bilaterally. There is no evidence of an intrates ticular mass. The right testis measures 4.0 x 2.0 x 2.8 cm and the left 3.8 x 2.2 x 2.3 cm. There is color-flow seen to both testes. Arterial and venous spectral waveforms are seen in both testes. There is no sonographic evidence of torsion. There is a 1.1 cm right epididymal head cyst or spermatocele. . There is a 0.6 cm left epididymal head cyst or spermatocele. Impression: No testicular mass or torsion. Small bilateral epididymal head cysts or spermatoceles. Reviewed, dictated and finalized at [facility]. Impression: No testicular mass or torsion. Small bilateral epididymal head cysts or spermatoceles.
--- NOTE | ~2023-08-21 | CT_ITS ---
Non-contrast CT scan of the Abdomen and Pelvis Clinical indication: Abdominal pain Technique: 2.5 mm axial scans were obtained through the abdomen and pelvis without intravenous or or al contrast. Dose reduction technique was used on this scan by utilizing automated exposure control a nd iterative reconstruction technique. The dose-length product (DLP) was 1258.94 mGy-cm. COMPARISON: 08/19/2023 Findings: Images through the lung bases reveal no abnormalities. Stable right lower pole nonobstructing renal stones. Bilateral renal cysts are present, unchanged fro m recent prior exam. Irregular calcification in the right anterior renal cortex is unchanged. Questionable micronodular contour of the liver. Spleen is enlarged, measuring 16.3 cm in length. Chol ecystectomy clips are present. The pancreas and adrenals appear normal. There are atherosclerotic jazmin cifications of the aorta. There is no evidence of bowel obstruction. Images through the pelvis were performed. There is no evidence of ascites or lymphadenopathy. Urinary bladder unremarkable. Prostate gland enlarged. There is moderate abdominopelvic ascites with periton eal dialysis catheter present. Impression: Stable nonobstructing right lower pole renal stone. No hydronephrosis or ureteral stone. Possible early cirrhotic change of the liver with associated splenomegaly. Moderate amount of ascites with peritoneal dialysis catheter. Reviewed, dictated and finalized at location . Impression: Stable nonobstructing right lower pole renal stone. No hydronephrosis or ureter al stone. Possible early cirrhotic change of the liver with associated splenomegaly. Moderate amount of ascites with peritoneal dialysis catheter.
[2023-08-21 21:43] VITALS: BP 161/73; PULSE 66; RESP 20; TEMP 37.2; O2SAT 99
[2023-08-21 22:39] LABS: Basophils Percent Auto 0.2 % (0.2-1.2); Hematocrit 31.8 % (42.0-52.0); Hemoglobin 10.4 g/dL (14.0-18.0); Immature Granulocyte Absolute 0.46 K/mm3 (0.00-0.031); Immature Granulocyte Percent A 3.5 % (0-0.5); Lymphocytes Absolute Auto 0.78 K/mm3 (0.9-3.2); Mean Corpuscular HGB Conc 32.7 g/dl (32-36); Mean Corpuscular Hemoglobin 30.8 pg (26-34); Mean Corpuscular Volume 94.1 fl (80-100); Mean Platelet Volume 11.1 fl (7.4-10.4); Monocytes Absolute Auto 0.8 K/mm3 (0.1-0.6); Monocytes Percent Auto 6.5 % (2.6-8.5); Neutrophils Absolute Auto 10.9 K/mm3 (1.3-6.7); Neutrophils Percent Auto 83.8 % (45.5-73.1); Platelet Count Result 197 k/mm3 (150-375); Red Blood Count 3.38 M/mm3 (4.6-6.20)
[2023-08-21 22:43] LABS: Appearance Urine Clear (Clear); Bacteria Urine None Seen /hpf; Bilirubin Urine Negative (Negative); Blood Urine Negative (Negative); Color Urine Yellow (Yellow); Glucose Urine UA 1+ mg/dL (Negative); Ketones Urine Negative (Negative); Leukocyte Esterase Ur 1+ LEU/UL (Negative); Nitrate Urine Negative (Negative); Non Pathogenic Casts 0-2; Protein Urine 3+ mg/dL (Negative); RBC Urine 0-2 /hpf (0-2); Specific Grav Ur 1.014 (1.001-1.035); Squamous Epithelial Cell Urine None Seen /hpf (Few); Urobilinogen Urine 0.2 mg/dL (<2.0); WBC Urine 21-50 /hpf (0-3)
[2023-08-21 22:48] LABS: Lactic Acid Reflex 2.5 mmol/L (0.7-2.0)
[2023-08-21 22:49] LABS: Alanine Aminotransferase 22 U/L (6-50); Albumin Level 3.8 g/dL (3.5-5.1); Alkaline Phosphatase 182 U/L (38-126); Anion Gap 15 mmol/L (4-12); Aspartate Amino Transferase 29 U/L (17-59); Bilirubin,Total 0.6 mg/dL (0.2-1.3); Blood Urea Nitrogen 56 mg/dL (9-20); Calcium 7.8 mg/dL (8.4-10.2); Carbon Dioxide 23 mmol/L (22-30); Chloride 93 mmol/L (98-107); Estimated CRCL calculation 9 ml/min; Estimated Glomerular Filt Rate 6; Glucose 191 mg/dL (65-110); Lipase 209 U/L (23-300); Potassium 4.2 mmol/L (3.4-5.0); Sodium 131 mmol/L (137-145)
[2023-08-21 22:52] LABS: Add Urine Microscopic? YES
--- NOTE | 2023-08-21 22:52 | ED.ABDPAIN ---
HPI - Abdominal Pain General Chief Complaint: Abdominal Pain Stated Complaint: abd pain, 07/28 hernia surgery fall 3 days ago Time Seen by Provider: 08/21/23 22:08 Source: patient and old records reviewed Mode of arrival: ambulatory Limitations: no limitations History of Present Illness HPI narrative: Patient is a 68-year-old male, with PMH of ESRD on peritoneal dialysis, who presents the ED with report of right lower abdominal pain. Patient reports he underwent right inguinal hernia repair on 07/[address] Christiano Bell at [facility]. states he has had intermittent pain in his right lower abdomen/ groin since the surgery. Has been taking Tylenol and oxycodone for this. Had a mechanical fall in his living room 2 days ago and reported having worsening pain since then. Was seen in the ED 2 days ago for abdominal pain as well as urticaria. CT scan at that time showed stable appearance of recent hernia repair. Patient now reports pain is extending into his right testicle with swelling of his right testicle. Denies difficulty urinating, hematuria, fevers. Denies nausea, vomiting. Related Data Home Medications Medication Instructions Recorded Confirmed aspirin 81 mg tablet,delayed 81 mg PO DAILY 02/01/19 08/11/23 release (Sami Low Dose Aspirin) vit C 250 mg-vit E 200 unit-zinc 1 tablet PO Q12H 02/01/19 08/11/23 12.5 mg-copper 1 rr-mwy-ovrviz tablet (ICaps AREDS2 (copper citrate)) blood sugar diagnostic (OneTouch 05/14/19 08/11/23 Ultra Blue Test Strip) carvedilol 25 mg tablet (Coreg) 25 mg PO Q12H 09/06/19 08/11/23 insulin glargine 100 unit/mL (3 40 unit subcut Q12H 10/12/21 08/11/23 mL) subcutaneous pen (Basaglar KwikPen U-100 Insulin) lisinopril 20 mg tablet 20 mg PO HS 08/12/22 08/11/23 potassium chloride 10 mEq 10 meq PO 1400 08/12/22 08/11/23 capsule,extended release cholecalciferol (vitamin D3) 125 125 mcg PO 1400 10/01/22 08/11/23 mcg (5,000 unit) tablet (Vitamin D3) folic acid 0.8 mg-vit B comp with 1 tablet PO DAILY 10/01/22 08/11/23 L-gdtf-iyvrkps D3 2,000 unit tablet (Dialyvite 800-Ultra D) furosemide 80 mg tablet 160 mg PO BID 10/01/22 08/11/23 insulin aspart U-100 100 unit/mL See Rx Instructions .Route .COMPLEX 10/01/22 08/11/23 (3 mL) subcutaneous pen (Novolog FlexPen U-100 Insulin aspart) tamsulosin 0.4 mg capsule 0.4 mg PO HS 10/01/22 08/11/23 diphenhydramine 25 2 tablet PO HS 03/12/23 08/11/23 mg-acetaminophen 500 mg tablet (Tylenol PM Extra Strength) pantoprazole 40 mg tablet,delayed 40 mg PO HS 03/12/23 08/11/23 release duloxetine 30 mg capsule,delayed 30 mg PO DAILY depression 04/09/23 08/11/23 release clonidine 0.1 mg/24 hr weekly 2 patch transdermal WEEKLY 07/21/23 08/11/23 transdermal patch Allergies Allergy/AdvReac Type Severity Reaction Status Date / Time No Known Allergies Allergy Verified 08/21/23 21:42 Review of Systems Review of Systems: CONSTITUTIONAL: Denies fever, chills, or sweats. GASTROINTESTINAL: See HPI. GENITOURINARY: See HPI. All systems reviewed & are unremarkable except as noted in HPI and below PMFSH Past Medical History Medical History 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 Adult hypothyroidism Anemia Anxiety Chronic diastolic (congestive) heart failure Chronic GERD Cirrhosis COVID-19 Diabetes Dysphagia End stage renal disease History of constipation History of kidney cancer Hx of Clostridium difficile infection Hy kid NOS w cr kid I-IV Hypercholesterolemia Hypertension Increased prostate specific antigen (PSA) velocity Left kidney mass Neoplasm of kidney SHABNAM (obstructive sleep apnea) Peritoneal dialysis status Pituitary tumor Rhinitis Urinary tract infection Viral URI Surgical History Surgical History Adenoma of pituitary History of cholecyste
[2023-08-21 23:20] VITALS: BP 188/81; PULSE 60; RESP 16; O2SAT 99
[2023-08-21] MEDS: SODIUM CHLORIDE 0.9% IV 1,000 ML 999 ML IV CONT (23:22)
[2023-08-21] MEDS: ONDANSETRON INJ 4 MG/2 ML VIAL IV PUSH (23:23)
[2023-08-21] MEDS: MORPHINE SULFATE (*CRX) 4 MG/ML INJ IV PUSH (23:24)
[2023-08-22 00:47] VITALS: BP 173/71; PULSE 60; RESP 16; O2SAT 98
[2023-08-22 01:37] LABS: Reflex Lactic Acid Yes or No Add Lactic
[2023-08-22 02:09] LABS: Lactic Acid 1.6 mmol/L (0.7-2.0)
[2023-08-22] MEDS: HYDROcodone/acetaminophen (*CRX) 5-325 MG TABLET 1 TAB PO (02:40)
[2023-08-22] MEDS: CIPROFLOXACIN 500 MG TAB PO (02:41)
[2023-08-22 02:58] VITALS: BP 188/88; PULSE 56; RESP 14; O2SAT 98
== END 2023-08-22 03:52 | disposition home or self-care (01) ==
PROVIDERS: Emergency Medicine; Emergency Provider Physician Assistant; PCP Family Medicine
DX: N30.00 Acute cystitis without hematuria (principal); R10.31 Right lower quadrant pain; N43.3 Hydrocele, unspecified; N18.6 End stage renal disease; I13.2 Hypertensive heart and chronic kidney disease with heart failure and with stage 5 chronic kidney disease, or end stage renal disease; I50.32 Chronic diastolic (congestive) heart failure; E11.22 Type 2 diabetes mellitus with diabetic chronic kidney disease; E03.9 Hypothyroidism, unspecified; E78.00 Pure hypercholesterolemia, unspecified; K21.9 Gastro-esophageal reflux disease without esophagitis; R26.89 Other abnormalities of gait and mobility; F41.9 Anxiety disorder, unspecified; Z99.2 Dependence on renal dialysis; Z95.5 Presence of coronary angioplasty implant and graft; Z96.651 Presence of right artificial knee joint; Z85.528 Personal history of other malignant neoplasm of kidney; Z86.16 Personal history of COVID-19; Z90.49 Acquired absence of other specified parts of digestive tract; Z90.5 Acquired absence of kidney; Z98.42 Cataract extraction status, left eye; Z79.4 Long term (current) use of insulin; Z79.82 Long term (current) use of aspirin; Z79.899 Other long term (current) drug therapy
CPT/HCPCS: 36415; 74176; 76870; 80053; 81001; 83605; 83690; 85025; 87086; 93976; 96361; 96374; 96375; 99284; A9270; J2270; J2405; J7030

== ENCOUNTER 2023-08-30 17:17 | Emergency (ER) | payer MEDICARE, SELFPAY ==
--- NOTE | ~2023-08-30 | CT_ITS ---
CT of the Abdomen and Pelvis: Indication: Abdominal pain Technique: 2.5 mm axial scans were obtained through the abdomen and pelvis following intravenous adm inistration of 100 cc of Omnipaque 350. Dose reduction technique was used on this scan by utilizing a utomated exposure control and iterative reconstruction technique. The dose-length product (DLP) was 1 293.64 mGy-cm. COMPARISON: 08/21/2023 Findings: Scans through the lung bases demonstrates stable 5 mm left lower lobe pulmonary nodule. The liver, pancreas, and adrenal glands are unchanged. Stable splenomegaly. Cholecystectomy clips are present. Multiple bilateral renal cysts are again present. Bilateral nonobstructing renal stones are stable from to prior exam. Stable partially calcified lesion of the right kidney. There are atherosc lerotic calcifications of the aorta. No lymphadenopathy. No bowel obstruction. Possible wall thickening of the distal large bowel. Images through the pelvis were performed. Moderate abdominopelvic ascites present, with peritoneal di alysis catheter present. Urinary bladder unremarkable. Prostate gland enlarged. Impression: Possible wall thickening of the distal large bowel. Correlate for infectious/inflammatory distal coli tis. Moderate abdominopelvic ascites, probably related to peritoneal dialysis. Bilateral nonobstructing nephrolithiasis. Stable splenomegaly. Reviewed, dictated and finalized at location . Impression: Possible wall thickening of the distal large bowel. Correlate for infectious/in flammatory distal colitis. Moderate abdominopelvic ascites, probably related to peritoneal dialysis. Bilateral nonobstructing nephrolithiasis. Stable splenomegaly.
[2023-08-30 17:22] VITALS: BP 178/80; PULSE 66; RESP 16; TEMP 36.4; O2SAT 100
[2023-08-30 18:14] LABS: Basophils Percent Auto 0.1 % (0.2-1.2); Eosinophils Percent Auto 0.3 % (0-4.4); Hematocrit 32.5 % (42.0-52.0); Hemoglobin 10.7 g/dL (14.0-18.0); Immature Granulocyte Absolute 0.18 K/mm3 (0.00-0.031); Immature Granulocyte Percent A 2.3 % (0-0.5); Lymphocytes Absolute Auto 0.79 K/mm3 (0.9-3.2); Lymphocytes Percent Auto 9.9 % (18.3-44.2); Mean Corpuscular HGB Conc 32.9 g/dl (32-36); Mean Corpuscular Hemoglobin 31.6 pg (26-34); Mean Corpuscular Volume 95.9 fl (80-100); Mean Platelet Volume 11.4 fl (7.4-10.4); Monocytes Absolute Auto 1.1 K/mm3 (0.1-0.6); Monocytes Percent Auto 14.3 % (2.6-8.5); Neutrophils Absolute Auto 5.9 K/mm3 (1.3-6.7); Neutrophils Percent Auto 73.1 % (45.5-73.1); Platelet Count Result 149 k/mm3 (150-375); Red Blood Count 3.39 M/mm3 (4.6-6.20)
[2023-08-30 18:27] LABS: Alanine Aminotransferase 20 U/L (6-50); Albumin Level 3.5 g/dL (3.5-5.1); Alkaline Phosphatase 83 U/L (38-126); Anion Gap 15 mmol/L (4-12); Aspartate Amino Transferase 27 U/L (17-59); Bilirubin,Total 0.4 mg/dL (0.2-1.3); Blood Urea Nitrogen 57 mg/dL (9-20); Carbon Dioxide 26 mmol/L (22-30); Chloride 97 mmol/L (98-107); Estimated Glomerular Filt Rate 6; Glucose 135 mg/dL (65-110); Lactic Acid Reflex 1.7 mmol/L (0.7-2.0); Potassium 3.5 mmol/L (3.4-5.0); Sodium 138 mmol/L (137-145)
[2023-08-30 18:41] LABS: Appearance Urine Clear (Clear); Bacteria Urine None Seen /hpf; Bilirubin Urine Negative (Negative); Blood Urine Negative (Negative); Color Urine Yellow (Yellow); Glucose Urine UA Negative (Negative); Ketones Urine Trace mg/dL (Negative); Leukocyte Esterase Ur 1+ LEU/UL (Negative); Nitrate Urine Negative (Negative); Non Pathogenic Casts 0-2; Protein Urine 3+ mg/dL (Negative); RBC Urine 0-2 /hpf (0-2); Specific Grav Ur 1.016 (1.001-1.035); Squamous Epithelial Cell Urine None Seen /hpf (Few); Urobilinogen Urine 0.2 mg/dL (<2.0); WBC Urine 21-50 /hpf (0-3); pH Urine 5.5 (5.0-9.0)
[2023-08-30 18:54] LABS: Add Urine Microscopic? YES
--- NOTE | 2023-08-30 19:20 | ED.ABDPAIN ---
HPI - Abdominal Pain General Chief Complaint: Abdominal Pain Stated Complaint: abd pain Time Seen by Provider: 08/30/23 17:40 Source: patient and family Mode of arrival: ambulatory Limitations: no limitations History of Present Illness HPI narrative: 68-year-old with a history of hypertension, diabetes, ESRD on peritoneal dialysis here with the complaints of lower abdominal pain for past 1 day. He thinks he is constipated however he patient states that he had a small bowel movement this morning. He denies any nausea or vomiting. No history of fever or chills. MD elicited complaint: abdominal pain Pertinent past history: constipation Onset (ago): day(s) (1) Pain Consistency: constant Location: RLQ, LLQ and suprapubic Severity: mild Quality: aching Radiation: none Migration to: no migration Exacerbating factors: nothing Relieving factors: nothing Associated symptoms: denies other symptoms Related Data Home Medications Medication Instructions Recorded Confirmed aspirin 81 mg tablet,delayed 81 mg PO DAILY 02/01/19 08/11/23 release (Sami Low Dose Aspirin) vit C 250 mg-vit E 200 unit-zinc 1 tablet PO Q12H 02/01/19 08/11/23 12.5 mg-copper 1 ln-zau-grfrzn tablet (ICaps AREDS2 (copper citrate)) blood sugar diagnostic (OneTouch 05/14/19 08/11/23 Ultra Blue Test Strip) carvedilol 25 mg tablet (Coreg) 25 mg PO Q12H 09/06/19 08/11/23 insulin glargine 100 unit/mL (3 40 unit subcut Q12H 10/12/21 08/11/23 mL) subcutaneous pen (Basaglar KwikPen U-100 Insulin) lisinopril 20 mg tablet 20 mg PO HS 08/12/22 08/11/23 potassium chloride 10 mEq 10 meq PO 1400 08/12/22 08/11/23 capsule,extended release cholecalciferol (vitamin D3) 125 125 mcg PO 1400 10/01/22 08/11/23 mcg (5,000 unit) tablet (Vitamin D3) folic acid 0.8 mg-vit B comp with 1 tablet PO DAILY 10/01/22 08/11/23 T-btel-wkutato D3 2,000 unit tablet (Dialyvite 800-Ultra D) furosemide 80 mg tablet 160 mg PO BID 10/01/22 08/11/23 insulin aspart U-100 100 unit/mL See Rx Instructions .Route .COMPLEX 10/01/22 08/11/23 (3 mL) subcutaneous pen (Novolog FlexPen U-100 Insulin aspart) tamsulosin 0.4 mg capsule 0.4 mg PO HS 10/01/22 08/11/23 diphenhydramine 25 2 tablet PO HS 03/12/23 08/11/23 mg-acetaminophen 500 mg tablet (Tylenol PM Extra Strength) pantoprazole 40 mg tablet,delayed 40 mg PO HS 03/12/23 08/11/23 release duloxetine 30 mg capsule,delayed 30 mg PO DAILY depression 04/09/23 08/11/23 release clonidine 0.1 mg/24 hr weekly 2 patch transdermal WEEKLY 07/21/23 08/11/23 transdermal patch Allergies Allergy/AdvReac Type Severity Reaction Status Date / Time No Known Allergies Allergy Verified 08/21/23 21:42 Review of Systems Review of Systems: All systems reviewed & are unremarkable except as noted in HPI and below Constitutional: Constitutional: Reports no additional constitutional complaints Eyes: Eyes: Reports no additional eye complaints ENT: Reports system reviewed and no additional complaints, except as documented Cardiovascular: Cardiovascular: Reports no additional cardiovascular complaints Respiratory: Respiratory: Reports no additional respiratory complaints Gastrointestinal: Gastrointestinal: Reports as per HPI Musculoskeletal: Musculoskeletal: Reports no additional musculoskeletal complaints Integumentary/Breasts: Skin/Breast: Reports system reviewed and no additional complaints, except as docu PMFSH Past Medical History Medical History 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 Adult hypothyroidism Anemia Anxiety Chronic diastolic (congestive) heart failure Chronic GERD Cirrhosis COVID-19 Diabetes Dysphagia End stage renal disease History of constipation History of kidney cancer Hx of Clostridium difficile infection Hy kid NOS w cr kid I-IV Hypercholesterolemia Hypertension Increased prostate specific antigen (PSA)
--- NOTE | 2023-08-30 19:27 | PC.NURSE ---
Report received from PORSHA Garcia. Assumed care of patient at this time. Patient resting with eyes closed on stretcher, VSS. Call light within reach.
[2023-08-30] MEDS: LACTULOSE 20 GM/30 ML UDC PO (19:42)
[2023-08-30 19:44] VITALS: BP 155/73; PULSE 70; RESP 20; O2SAT 100
== END 2023-08-30 20:23 | disposition home or self-care (01) ==
PROVIDERS: Emergency Provider Family Medicine; PCP Family Medicine
DX: R10.30 Lower abdominal pain, unspecified (principal); E11.22 Type 2 diabetes mellitus with diabetic chronic kidney disease; I13.2 Hypertensive heart and chronic kidney disease with heart failure and with stage 5 chronic kidney disease, or end stage renal disease; I50.32 Chronic diastolic (congestive) heart failure; N18.6 End stage renal disease; Z99.2 Dependence on renal dialysis; Z85.528 Personal history of other malignant neoplasm of kidney
CPT/HCPCS: 36415; 74177; 80053; 81001; 83605; 85025; 87086; 99284; A9270; Q9967

== ENCOUNTER 2023-09-01 10:57 | Emergency (ER) | payer MEDICARE, SELFPAY ==
[2023-09-01 11:07] VITALS: BP 127/59; PULSE 58; RESP 20; TEMP 36.3; O2SAT 100
[2023-09-01 11:37] VITALS: BP 145/65; PULSE 58; RESP 12; O2SAT 98
[2023-09-01 11:46] VITALS: BP 128/62; PULSE 56; RESP 13; O2SAT 98
[2023-09-01 12:23] LABS: Appearance Urine Cloudy (Clear); Bacteria Urine None Seen /hpf; Bilirubin Urine Negative (Negative); Blood Urine 2+ (Negative); Color Urine Yellow (Yellow); Glucose Urine UA Negative (Negative); Ketones Urine Trace mg/dL (Negative); Leukocyte Esterase Ur 2+ LEU/UL (Negative); Nitrate Urine Negative (Negative); Non Pathogenic Casts 0-2; Protein Urine 3+ mg/dL (Negative); RBC Urine 51-100 /hpf (0-2); Specific Grav Ur 1.022 (1.001-1.035); Squamous Epithelial Cell Urine Occasional /hpf (Few); Urobilinogen Urine 0.2 mg/dL (<2.0); WBC Urine 51-100 /hpf (0-3); pH Urine 5.5 (5.0-9.0)
[2023-09-01 12:28] LABS: Add Urine Microscopic? YES
[2023-09-01 12:37] LABS: Eosinophils Percent Auto 0.4 % (0-4.4); Hematocrit 31.6 % (42.0-52.0); Hemoglobin 10.4 g/dL (14.0-18.0); Immature Granulocyte Absolute 0.08 K/mm3 (0.00-0.031); Immature Granulocyte Percent A 1.1 % (0-0.5); Lymphocytes Percent Auto 8.6 % (18.3-44.2); Mean Corpuscular HGB Conc 32.9 g/dl (32-36); Mean Corpuscular Hemoglobin 31.7 pg (26-34); Mean Corpuscular Volume 96.3 fl (80-100); Monocytes Absolute Auto 0.8 K/mm3 (0.1-0.6); Monocytes Percent Auto 11.6 % (2.6-8.5); Neutrophils Absolute Auto 5.5 K/mm3 (1.3-6.7); Neutrophils Percent Auto 78.3 % (45.5-73.1); Platelet Count Result 134 k/mm3 (150-375); Red Blood Count 3.28 M/mm3 (4.6-6.20); Red Cell Distribution Width 16.6 % (11.5-14.5)
[2023-09-01 12:46] LABS: Alanine Aminotransferase 18 U/L (6-50); Albumin Level 3.2 g/dL (3.5-5.1); Alkaline Phosphatase 75 U/L (38-126); Anion Gap 15 mmol/L (4-12); Aspartate Amino Transferase 24 U/L (17-59); Bilirubin,Total 0.6 mg/dL (0.2-1.3); Blood Urea Nitrogen 48 mg/dL (9-20); Carbon Dioxide 25 mmol/L (22-30); Chloride 94 mmol/L (98-107); Estimated CRCL calculation 10 ml/min; Estimated Glomerular Filt Rate 7; Glucose 178 mg/dL (65-110); Lipase 360 U/L (23-300); Potassium 3.6 mmol/L (3.4-5.0); Sodium 134 mmol/L (137-145)
[2023-09-01 12:50] VITALS: BP 138/77; PULSE 56; RESP 17; O2SAT 99
[2023-09-01 13:01] VITALS: BP 146/70; PULSE 62; RESP 13; O2SAT 96
--- NOTE | 2023-09-01 13:08 | ED.GENADULT ---
HPI - General Adult General Chief complaint: Abdominal Pain Stated complaint: ABDOMINAL PAIN Time Seen by Provider: 09/01/23 11:49 History of Present Illness HPI narrative: Patient is a 68-year-old male who presents ER with left-sided abdominal pain. Ongoing over last day. Reports he has had normal appearing peritoneal fluid. No fevers or chills or sweats. Abdomen is not warm. He was recently seen in the ER and he had been taking laxative clean himself out. CT showed possible colitis. Related Data Home Medications Medication Instructions Recorded Confirmed aspirin 81 mg tablet,delayed 81 mg PO DAILY 02/01/19 08/11/23 release (Sami Low Dose Aspirin) vit C 250 mg-vit E 200 unit-zinc 1 tablet PO Q12H 02/01/19 08/11/23 12.5 mg-copper 1 ii-bjw-uqmsgc tablet (ICaps AREDS2 (copper citrate)) blood sugar diagnostic (OneTouch 05/14/19 08/11/23 Ultra Blue Test Strip) carvedilol 25 mg tablet (Coreg) 25 mg PO Q12H 09/06/19 08/11/23 insulin glargine 100 unit/mL (3 40 unit subcut Q12H 10/12/21 08/11/23 mL) subcutaneous pen (Basaglar KwikPen U-100 Insulin) lisinopril 20 mg tablet 20 mg PO HS 08/12/22 08/11/23 potassium chloride 10 mEq 10 meq PO 1400 08/12/22 08/11/23 capsule,extended release cholecalciferol (vitamin D3) 125 125 mcg PO 1400 10/01/22 08/11/23 mcg (5,000 unit) tablet (Vitamin D3) folic acid 0.8 mg-vit B comp with 1 tablet PO DAILY 10/01/22 08/11/23 Z-eqqw-ihxyjks D3 2,000 unit tablet (Dialyvite 800-Ultra D) furosemide 80 mg tablet 160 mg PO BID 10/01/22 08/11/23 insulin aspart U-100 100 unit/mL See Rx Instructions .Route .COMPLEX 10/01/22 08/11/23 (3 mL) subcutaneous pen (Novolog FlexPen U-100 Insulin aspart) tamsulosin 0.4 mg capsule 0.4 mg PO HS 10/01/22 08/11/23 diphenhydramine 25 2 tablet PO HS 01/24/24 06/24/24 mg-acetaminophen 500 mg tablet (Tylenol PM Extra Strength) pantoprazole 40 mg tablet,delayed 40 mg PO HS 03/12/23 08/11/23 release duloxetine 30 mg capsule,delayed 30 mg PO DAILY depression 04/09/23 08/11/23 release clonidine 0.1 mg/24 hr weekly 2 patch transdermal WEEKLY 07/21/23 08/11/23 transdermal patch Allergies Allergy/AdvReac Type Severity Reaction Status Date / Time No Known Allergies Allergy Verified 08/21/23 21:42 Review of Systems Review of Systems: All systems reviewed & are unremarkable except as noted in HPI and below Constitutional: Constitutional: Reports no additional constitutional complaints ENT: Reports system reviewed and no additional complaints, except as documented Respiratory: Respiratory: Reports no additional respiratory complaints Gastrointestinal: Gastrointestinal: Reports abdominal pain, Reports diarrhea, Denies nausea and Denies vomiting PMFSH Past Medical History Medical History 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 Adult hypothyroidism Anemia Anxiety Chronic diastolic (congestive) heart failure Chronic GERD Cirrhosis COVID-19 Diabetes Dysphagia End stage renal disease History of constipation History of kidney cancer Hx of Clostridium difficile infection Hy kid NOS w cr kid I-IV Hypercholesterolemia Hypertension Increased prostate specific antigen (PSA) velocity Left kidney mass Neoplasm of kidney SHABNAM (obstructive sleep apnea) Peritoneal dialysis status Pituitary tumor Rhinitis Urinary tract infection Viral URI Surgical History Surgical History Adenoma of pituitary History of cholecystectomy History of partial nephrectomy S/P hernia surgery July 2023 [facility] [place] Dr Torres Status post left cataract extraction Status post right knee replacement Status post total right knee replacement Stented coronary artery Family History Family History Mother Hypertension Cerebrovascular accident Aneurysm
[2023-09-01] MEDS: ACETAMINOPHEN 325 MG TABLET 650 MG PO (13:29)
== END 2023-09-01 13:42 | disposition home or self-care (01) ==
PROVIDERS: Physician Assistant; Emergency Provider Emergency Medicine; PCP Family Medicine
DX: K52.9 Noninfective gastroenteritis and colitis, unspecified (principal); N18.6 End stage renal disease; I13.2 Hypertensive heart and chronic kidney disease with heart failure and with stage 5 chronic kidney disease, or end stage renal disease; I50.32 Chronic diastolic (congestive) heart failure; E11.22 Type 2 diabetes mellitus with diabetic chronic kidney disease; E03.9 Hypothyroidism, unspecified; E78.00 Pure hypercholesterolemia, unspecified; K21.9 Gastro-esophageal reflux disease without esophagitis; R26.89 Other abnormalities of gait and mobility; F41.9 Anxiety disorder, unspecified; Z99.2 Dependence on renal dialysis; Z96.651 Presence of right artificial knee joint; Z95.5 Presence of coronary angioplasty implant and graft; Z85.528 Personal history of other malignant neoplasm of kidney; Z86.16 Personal history of COVID-19; Z90.49 Acquired absence of other specified parts of digestive tract; Z90.5 Acquired absence of kidney; Z98.42 Cataract extraction status, left eye; Z79.4 Long term (current) use of insulin; Z79.82 Long term (current) use of aspirin; Z79.899 Other long term (current) drug therapy
CPT/HCPCS: 36415; 80053; 81001; 83690; 85025; 87086; 99283; A9270

== ENCOUNTER 2023-09-02 13:52 | Observation (INO) | payer MEDICARE, SELFPAY ==
[2023-09-02 13:54] VITALS: BP 136/70; PULSE 57; RESP 18; TEMP 36.6; O2SAT 100
[2023-09-02 14:45] LABS: Eosinophils Percent Auto 0.5 % (0-4.4); Hemoglobin 10.6 g/dL (14.0-18.0); Immature Granulocyte Absolute 0.08 K/mm3 (0.00-0.031); Immature Granulocyte Percent A 1.2 % (0-0.5); Lymphocytes Absolute Auto 0.61 K/mm3 (0.9-3.2); Lymphocytes Percent Auto 9.5 % (18.3-44.2); Mean Corpuscular HGB Conc 32.1 g/dl (32-36); Mean Corpuscular Volume 96.5 fl (80-100); Mean Platelet Volume 10.9 fl (7.4-10.4); Monocytes Absolute Auto 0.8 K/mm3 (0.1-0.6); Monocytes Percent Auto 11.7 % (2.6-8.5); Neutrophils Absolute Auto 4.9 K/mm3 (1.3-6.7); Neutrophils Percent Auto 77.1 % (45.5-73.1); Platelet Count Result 151 k/mm3 (150-375); Red Blood Count 3.42 M/mm3 (4.6-6.20); Red Cell Distribution Width 16.4 % (11.5-14.5); White Blood Count 6.4 K/mm3 (4.5-10.0)
[2023-09-02 14:53] LABS: Lactic Acid Reflex 1.4 mmol/L (0.7-2.0)
[2023-09-02 14:54] LABS: Alanine Aminotransferase 17 U/L (6-50); Albumin Level 3.4 g/dL (3.5-5.1); Alkaline Phosphatase 63 U/L (38-126); Anion Gap 15 mmol/L (4-12); Aspartate Amino Transferase 24 U/L (17-59); Bilirubin,Total 0.5 mg/dL (0.2-1.3); Blood Urea Nitrogen 50 mg/dL (9-20); Calcium 7.9 mg/dL (8.4-10.2); Carbon Dioxide 27 mmol/L (22-30); Chloride 93 mmol/L (98-107); Estimated CRCL calculation 10 ml/min; Estimated Glomerular Filt Rate 7; Glucose 117 mg/dL (65-110); Lipase 347 U/L (23-300); Potassium 3.6 mmol/L (3.4-5.0); Sodium 135 mmol/L (137-145)
--- NOTE | 2023-09-02 15:32 | ED.ABDPAIN ---
HPI - Abdominal Pain General Chief Complaint: Abdominal Pain Stated Complaint: abdominal pain Time Seen by Provider: 09/02/23 14:37 Source: patient and family Mode of arrival: ambulatory Limitations: no limitations History of Present Illness HPI narrative: 68-year-old with a history of hypertension, diabetes, ESRD on peritoneal dialysis here with the complaints of lower abdominal pain for past several days. He was seen in the ER for the same for past 2 days , I have seen him 2 days ago had a CT scan done which shows mild distal possible colitis. Patient presently denies any fever or chills. He states that he gets shakes after a eating. No fever or chills. He states the peritoneal fluid is clear. MD elicited complaint: abdominal pain Pertinent past history: none Onset (ago): day(s) (3) Pain Consistency: constant Location: suprapubic Severity: mild Quality: cramping Radiation: suprapubic Migration to: no migration Exacerbating factors: eating Relieving factors: nothing Associated symptoms: denies other symptoms Related Data Home Medications Medication Instructions Recorded Confirmed aspirin 81 mg tablet,delayed 81 mg PO DAILY 02/01/19 08/11/23 release (Sami Low Dose Aspirin) vit C 250 mg-vit E 200 unit-zinc 1 tablet PO Q12H 02/01/19 08/11/23 12.5 mg-copper 1 ah-mki-iwubts tablet (ICaps AREDS2 (copper citrate)) blood sugar diagnostic (OneTouch 05/14/19 08/11/23 Ultra Blue Test Strip) carvedilol 25 mg tablet (Coreg) 25 mg PO Q12H 09/06/19 08/11/23 insulin glargine 100 unit/mL (3 40 unit subcut Q12H 10/12/21 08/11/23 mL) subcutaneous pen (Basaglar KwikPen U-100 Insulin) lisinopril 20 mg tablet 20 mg PO HS 08/12/22 08/11/23 potassium chloride 10 mEq 10 meq PO 1400 08/12/22 08/11/23 capsule,extended release cholecalciferol (vitamin D3) 125 125 mcg PO 1400 10/01/22 08/11/23 mcg (5,000 unit) tablet (Vitamin D3) folic acid 0.8 mg-vit B comp with 1 tablet PO DAILY 10/01/22 08/11/23 V-dpjx-zejozlj D3 2,000 unit tablet (Dialyvite 800-Ultra D) furosemide 80 mg tablet 160 mg PO BID 10/01/22 08/11/23 insulin aspart U-100 100 unit/mL See Rx Instructions .Route .COMPLEX 10/01/22 08/11/23 (3 mL) subcutaneous pen (Novolog FlexPen U-100 Insulin aspart) tamsulosin 0.4 mg capsule 0.4 mg PO HS 10/01/22 08/11/23 diphenhydramine 25 2 tablet PO HS 03/12/23 08/11/23 mg-acetaminophen 500 mg tablet (Tylenol PM Extra Strength) pantoprazole 40 mg tablet,delayed 40 mg PO HS 03/12/23 08/11/23 release duloxetine 30 mg capsule,delayed 30 mg PO DAILY depression 04/09/23 08/11/23 release clonidine 0.1 mg/24 hr weekly 2 patch transdermal WEEKLY 07/21/23 08/11/23 transdermal patch Allergies Allergy/AdvReac Type Severity Reaction Status Date / Time No Known Allergies Allergy Verified 09/02/23 13:58 Review of Systems Review of Systems: All systems reviewed & are unremarkable except as noted in HPI and below Constitutional: Constitutional: Reports no additional constitutional complaints Eyes: Eyes: Reports no additional eye complaints ENT: Reports system reviewed and no additional complaints, except as documented Respiratory: Respiratory: Reports no additional respiratory complaints Gastrointestinal: Gastrointestinal: Reports as per HPI Musculoskeletal: Musculoskeletal: Reports no additional musculoskeletal complaints Integumentary/Breasts: Skin/Breast: Reports system reviewed and no additional complaints, except as docu Psychiatric: Psychiatric: Reports no additional psychiatric complaints [facility] Past Medical History Medical History 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 Adult hypothyroidism Anemia Anxiety Chronic diastolic (congestive) heart failure Chronic GERD Cirrhosis COVID-19 Diabetes Dysphagia End stage renal disease History of constipation History of kidney cancer Hx of Clostridium diffi
[2023-09-02 15:47] VITALS: O2SAT 99
[2023-09-02 16:01] VITALS: BP 148/80; PULSE 54; RESP 18; O2SAT 98
[2023-09-02] MEDS: MORPHINE SULFATE (*CRX) 2 MG/ML INJ IV PUSH ×2 (16:30→20:42)
--- NOTE | 2023-09-02 16:42 | PM.IMHP ---
H&P: HPI History of Present Illness Date/Time: 09/02/23 16:40 Chief Complaint: Abdominal pain. Narrative: This is a 68-year-old male with end-stage renal disease on peritoneal dialysis, hypertension, dyslipidemia, congestive heart failure, coronary artery disease with history of stents, obstructive sleep apnea, insulin-dependent type 2 diabetes mellitus, hypothyroidism, benign prostatic hyperplasia, depression, and anxiety who presented to the emergency department via private vehicle for evaluation of abdominal pain. The patient provides the following history. He had a right inguinal hernia repair done last month and he reports having lower abdominal pain since that time, more so on the right side. He describes a poking pain radiating to the periumbilical region. He has seen the surgeon in follow-up and has had repeat imaging without significant findings and he was told it was likely a part of the healing process. His pain seemed to be worse several days ago when he was seen in the emergency department with concerns for constipation from the pain medications. CT of the abdomen and pelvis taken during that visit showed possible wall thickening of the distal large bowel, bilateral nonobstructing nephrolithiasis, stable splenomegaly, and moderate abdominopelvic ascites likely related to peritoneal dialysis. Labs were pretty unremarkable and vital signs were stable and he was discharged home with instructions to follow-up with his doctor. He was seen in the emergency department 2 days thereafter with ongoing pain despite having good bowel movements following stool softeners and laxatives. He was started on Augmentin at that time for possible colitis and he has been taking that at home. He returns today with the same pain. He also reports pill dysphagia and sweats with early satiety with eating. He has intermittent nausea and occasional emesis in the mornings. He urinates here and there and has not had dysuria. Peritoneal fluid has been clear. He denies fever, chills, chest pain, shortness of breath, hematemesis, bloating, belching, melena, and hematochezia. In the ED: He was afebrile on arrival with stable vital signs. Labs were significant for WBC count of 6.4, hemoglobin 10.6, platelet 151, sodium 135, chloride 93, potassium 3.6, BUN 50, creatinine 8.20, lactic acid 1.4, total protein 6.0, albumin 3.4, lipase 347. He is being admitted in this setting for further workup due to continued pain and new or GI symptoms. Review of Systems Review of Systems: 12 systems were reviewed and are negative except for as per HPI. [facility] Past Medical History Medical History (Updated 09/02/23 @ 22:57 by Medina Boston PA-C) Anemia Arthritis Benign prostatic hyperplasia Chronic diastolic (congestive) heart failure Cirrhosis Clostridium difficile infection Coronary artery disease Depression with anxiety Dyslipidemia End-stage renal disease on peritoneal dialysis Gastroesophageal reflux disease Hypertension Hypothyroidism Insulin dependent type 2 diabetes mellitus Kidney stones Obstructive sleep apnea Pituitary tumor Status post resection. Renal cell carcinoma Status post partial left nephrectomy. Surgical History Surgical History (Updated 09/02/23 @ 16:59 by Medina Boston PA-C) History of arthroplasty of right knee History of cardiac catheterization (08/2020) Stent x2 to the LAD. History of cataract extraction History of cholecystectomy (2007) History of colonoscopy with polypectomy History of coronary artery stent placement History of inguinal hernia repair History of open reduction and internal fixation (ORIF) procedure (11/2022) Screw fixation of sternal fracture. History of partial nephrectomy Partial left nephrectomy for renal cell carcinoma. History of pituitary surgery (11/2021) History of umbilical hernia repair Family History Family History Mother Hypertension Cereb
[2023-09-02 17:30] VITALS: BMI 37.9
--- NOTE | 2023-09-02 17:33 | PC.NURSE ---
This patient, Kendall Carl, was admitted to Medical Room 340-01. Patient/family oriented to hospital policies and general routines including ID bracelet, bed and alarms, visiting hours, pain management, procedures, bathroom and other care routines, personal items, smoking policy, room service/diet, and visiting hours. Information on how to activate the Rapid Response Team has been discussed. Patient/Family are encouraged to report perceived risks to care and to ask questions if they do not understand what they are told or what they should do.
--- NOTE | 2023-09-02 18:25 | PC.NURSE ---
RN called Dialysis Room and spoke with architectural examiner for patient to be set up on peritoneal dialysis tonight.
[2023-09-02 21:48] LABS: Appearance Peritoneal Fluid Clear (Clear); Color Peritoneal Fluid Colorless (Colorless); Nucleated Cells Peritoneal Flu 19 /uL (0-500); RBC Peritoneal Fluid < 2000 /uL (0-10000); Source Peritoneal Fluid Peritoneal Fluid
[2023-09-02 21:58] LABS: Lymphocytes Peritoneal Fluid 18 %; Macrophages Peritoneal Fluid 61 %; Mesothelial Cells Peritoneal Fluid 4 %; Neutrophils Peritoneal Fluid 17 % (0-25)
[2023-09-02 22:23] VITALS: BP 153/48; PULSE 53; RESP 20; TEMP 36.4; O2SAT 99
[2023-09-02 23:45] LABS: Glucose Point of Care 208 mg/dl (65-105)
[2023-09-02 23:47] VITALS: PULSE 70
[2023-09-02] MEDS: HEPARIN SODIUM 5,000 UNITS/ML VIAL 5000 UNITS SUB-Q (23:47)
[2023-09-02] MEDS: FINASTERIDE 5 MG TABLET PO (23:47)
[2023-09-02] MEDS: OPTI-GEN TAB 1 TABLET PO (23:47)
[2023-09-02] MEDS: carvediloL 25 MG TABLET PO (23:47)
[2023-09-02] MEDS: traMADol HCL (*CRX) 50 MG TABLET PO (23:47)
[2023-09-02] MEDS: LORazepam (*CRX) 0.5 MG TABLET PO (23:48)
[2023-09-02] MEDS: diphenhydrAMINE HCl CAP 25 MG CAPSULE 50 MG PO (23:48)
[2023-09-02] MEDS: dilTIAZem HCL 12 HR 60 MG CAP.12HR 120 MG PO (23:51)
[2023-09-02] MEDS: AMOXICILLIN/CLAVULANATE K 250-125 MG TAB 1 TABLET PO (23:51)
[2023-09-02] MEDS: INSULIN GLARGINE (*BKC) 100 UNITS/ML 30 UNITS SUB-Q (23:51)
[2023-09-02] MEDS: cloNIDine 0.1 MG/24 HR PATCH 1 PATCH TRANSDERM (23:52)
[2023-09-03] VITALS (11 sets, daily range): BP systolic 123–173; BP diastolic 46–76; PULSE 47–61; RESP 13–20; TEMP 36.1–36.7; O2SAT 96–100; BMI 34.5
[2023-09-03 05:31] LABS: Basophils Percent Auto 0.2 % (0.2-1.2); Eosinophils Percent Auto 0.3 % (0-4.4); Hematocrit 34.4 % (42.0-52.0); Hemoglobin 10.8 g/dL (14.0-18.0); Immature Granulocyte Absolute 0.08 K/mm3 (0.00-0.031); Immature Granulocyte Percent A 1.3 % (0-0.5); Lymphocytes Absolute Auto 0.82 K/mm3 (0.9-3.2); Lymphocytes Percent Auto 13.1 % (18.3-44.2); Mean Corpuscular HGB Conc 31.4 g/dl (32-36); Mean Corpuscular Hemoglobin 30.9 pg (26-34); Mean Corpuscular Volume 98.6 fl (80-100); Mean Platelet Volume 10.5 fl (7.4-10.4); Monocytes Absolute Auto 0.9 K/mm3 (0.1-0.6); Neutrophils Absolute Auto 4.5 K/mm3 (1.3-6.7); Neutrophils Percent Auto 71.1 % (45.5-73.1); Platelet Count Result 143 k/mm3 (150-375); Red Blood Count 3.49 M/mm3 (4.6-6.20); Red Cell Distribution Width 16.2 % (11.5-14.5); White Blood Count 6.3 K/mm3 (4.5-10.0)
[2023-09-03 05:38] LABS: Glucose Point of Care 162 mg/dl (65-105)
[2023-09-03 05:44] LABS: Anion Gap 14 mmol/L (4-12); Blood Urea Nitrogen 47 mg/dL (9-20); CRP < 0.5 mg/dL (<1.0); Calcium 8.3 mg/dL (8.4-10.2); Carbon Dioxide 26 mmol/L (22-30); Chloride 96 mmol/L (98-107); Estimated CRCL calculation 10 ml/min; Estimated Glomerular Filt Rate 6; Glucose 214 mg/dL (65-110); Magnesium 1.3 mg/dL (1.6-2.3); Potassium 3.1 mmol/L (3.4-5.0); Sodium 136 mmol/L (137-145)
[2023-09-03 05:48] LABS: Hemoglobin A1C 6.7 % (<5.7)
[2023-09-03] MEDS: LEVOTHYROXINE SODIUM 112 MCG TABLET PO (06:26)
[2023-09-03 06:38] LABS: Procalcitonin 0.3 ng/mL
[2023-09-03 08:22] LABS: Glucose Point of Care 152 mg/dl (65-105)
[2023-09-03] MEDS: lisinopriL 20 MG TABLET PO ×2 (09:07→20:30)
[2023-09-03] MEDS: FUROSEMIDE 80 MG TABLET PO ×2 (09:07→17:47)
[2023-09-03] MEDS: ASPIRIN 81 MG ENTERIC TABLET PO (09:07)
[2023-09-03] MEDS: VITAMIN B CMPLX/VIT C/FOLIC AC 1 CAPSULE 1 CAP PO (09:07)
[2023-09-03] MEDS: hydrALAZINE 10 MG TABLET PO ×2 (09:07→17:47)
[2023-09-03] MEDS: OPTI-GEN TAB 1 TABLET PO ×2 (09:07→20:30)
[2023-09-03] MEDS: AMOXICILLIN/CLAVULANATE K 250-125 MG TAB 1 TABLET PO ×2 (09:07→20:38)
[2023-09-03] MEDS: carvediloL 25 MG TABLET PO ×2 (09:08→20:31)
[2023-09-03] MEDS: dilTIAZem HCL 12 HR 60 MG CAP.12HR 120 MG PO ×2 (09:08→20:38)
[2023-09-03] MEDS: HEPARIN SODIUM 5,000 UNITS/ML VIAL 5000 UNITS SUB-Q ×2 (09:08→20:40)
[2023-09-03] MEDS: traMADol HCL (*CRX) 50 MG TABLET PO ×2 (09:14→20:39)
[2023-09-03] MEDS: INSULIN GLARGINE (*BKC) 100 UNITS/ML 30 UNITS SUB-Q (09:18)
--- NOTE | 2023-09-03 10:06 | P.PNIM_ITS ---
Progress Note: A&P Assessment and Plan (1) Abdominal pain: Qualifiers: Abdominal location: lower abdomen, unspecified Qualified Code(s): R10.30 - Lower abdominal pain, unspecified Code(s): R10.9 - Unspecified abdominal pain Status: Acute Assessment and Plan: 09/03/23: * Patient recently treated for colitis and was started on Augmentin on 09/01/2023 when he originally presented to the ER. He is back now with the same abdominal pain which has been unrelieved for the last 2 days. * CT of the abdomen showing possible wall thickening of the distal large bowel could be due to infectious/inflammatory distal colitis, moderate ascites related to peritoneal dialysis, bilateral nonobstructing nephrolithiasis. * White blood cell count is normal at 6.3, absolute neutrophils 4.5, lactic acid was 1.4 on admission, C reactive protein less than 0.5, procalcitonin 0.3, lipase 347, TSH 2.36 * He was continued on Augmentin * GI consulted and plan for EGD today * Keep NPO for now (2) Hypokalemia: Code(s): E87.6 - Hypokalemia Status: Acute Assessment and Plan: 09/03/23: * Potassium 3.1 * Will give 40 mEq of potassium today * Continue to trend (3) Hypomagnesemia: Code(s): E83.42 - Hypomagnesemia Status: Inactive Assessment and Plan: 09/03/23: * Magnesium level 1.3 * Will give 2 g of Mag today * Continue to trend (4) Anemia: Code(s): D64.9 - Anemia, unspecified Status: Chronic Assessment and Plan: 09/03/23: * Likely secondary to end-stage renal disease on peritoneal dialysis * Hemoglobin 10.8, MCV 98.6 * Will check vitamin B12 and folic acid, ferritin, iron panel * Continue to trend (5) End-stage renal disease on peritoneal dialysis: Code(s): N18.6 - End stage renal disease; Z99.2 - Dependence on renal dialysis Status: Chronic Assessment and Plan: 09/03/23: * Peritoneal fluid sent for Gram stain, culture, labs * So far g stain was negative, labs were within normal limits * Continue peritoneal dialysis at bedtime * Nephrology consulted (6) Hypertension: Code(s): I10 - Essential (primary) hypertension Status: Chronic Assessment and Plan: 09/03/23: * Blood pressure ranging 136/70 to 173/76 * Continue hydralazine and lisinopril (7) Hyperlipemia: Code(s): E78.5 - Hyperlipidemia, unspecified Status: Acute Assessment and Plan: 09/03/23: * Continue aspirin and atorvastatin (8) Hypothyroidism: Code(s): E03.9 - Hypothyroidism, unspecified Status: Acute Assessment and Plan: 09/03/23: * Continue Synthroid (9) Insulin dependent type 2 diabetes mellitus: Code(s): E11.9 - Type 2 diabetes mellitus without complications; Z79.4 - jail (current) use of insulin Status: Acute Assessment and Plan: 09/03/23: * Blood sugars ranging 152-214 * Hemoglobin A1c 6.7 * Accu-Cheks AC and HS * Moderate dose sliding scale insulin ordered * Will decrease Lantus to 20 units in a.m. * Hypoglycemic protocol in place * Currently NPO for GI consult, will start diabetic/renal diet once cleared by GI (10) Obstructive sleep apnea: Code(s): G47.33 - Obstructive sleep apnea (adult) (pediatric) Status: Acute Assessment and Plan: 09/03/23: * BiPAP/CPAP ordered with home settings (11) Benign prostatic hyperplasia: Code(s): N40.0 - Benign prostatic hyperplasia without lower urinary tract symptoms Status: Acute Assessment and Plan:
--- NOTE | 2023-09-03 10:06 | PM.IMPN ---
Progress Note: A&P Assessment and Plan (1) Abdominal pain: Qualifiers: Abdominal location: lower abdomen, unspecified Qualified Code(s): R10.30 - Lower abdominal pain, unspecified Code(s): R10.9 - Unspecified abdominal pain Status: Acute Assessment and Plan: 09/03/23: Patient recently treated for colitis and was started on Augmentin on 09/01/2023 when he originally presented to the ER. He is back now with the same abdominal pain which has been unrelieved for the last [address] of the abdomen showing possible wall thickening of the distal large bowel could be due to infectious/inflammatory distal colitis, moderate ascites related to peritoneal dialysis, bilateral nonobstructing nephrolithiasis. White blood cell count is normal at 6.3, absolute neutrophils 4.5, lactic acid was 1.4 on admission, C reactive protein less than 0.5, procalcitonin 0.3, lipase 347, TSH 2.36 He was continued on Augmentin GI consulted and plan for EGD today Keep NPO for now (2) Hypokalemia: Code(s): E87.6 - Hypokalemia Status: Acute Assessment and Plan: 09/03/23: Potassium 3.1 Will give 40 mEq of potassium today Continue to trend (3) Hypomagnesemia: Code(s): E83.42 - Hypomagnesemia Status: Inactive Assessment and Plan: 09/03/23: Magnesium level 1.3 Will give 2 g of Mag today Continue to trend (4) Anemia: Code(s): D64.9 - Anemia, unspecified Status: Chronic Assessment and Plan: 09/03/23: Likely secondary to end-stage renal disease on peritoneal dialysis Hemoglobin 10.8, MCV 98.6 Will check vitamin B12 and folic acid, ferritin, iron panel Continue to trend (5) End-stage renal disease on peritoneal dialysis: Code(s): N18.6 - End stage renal disease; Z99.2 - Dependence on renal dialysis Status: Chronic Assessment and Plan: 09/03/23: Peritoneal fluid sent for Gram stain, culture, labs So far g stain was negative, labs were within normal limits Continue peritoneal dialysis at bedtime Nephrology consulted (6) Hypertension: Code(s): I10 - Essential (primary) hypertension Status: Chronic Assessment and Plan: 7/17/24: Blood pressure ranging 136/70 to 173/76 Continue hydralazine and lisinopril (7) Hyperlipemia: Code(s): E78.5 - Hyperlipidemia, unspecified Status: Acute Assessment and Plan: 09/03/23: Continue aspirin and atorvastatin (8) Hypothyroidism: Code(s): E03.9 - Hypothyroidism, unspecified Status: Acute Assessment and Plan: 09/03/23: Continue Synthroid (9) Insulin dependent type 2 diabetes mellitus: Code(s): E11.9 - Type 2 diabetes mellitus without complications; Z79.4 - safety analyst (current) use of insulin Status: Acute Assessment and Plan: 09/03/23: Blood sugars ranging 152-214 Hemoglobin A1c 6.7 Accu-Cheks AC and HS Moderate dose sliding scale insulin ordered Will decrease Lantus to 20 units in a.m. Hypoglycemic protocol in place Currently NPO for GI consult, will start diabetic/renal diet once cleared by GI (10) Obstructive sleep apnea: Code(s): G47.33 - Obstructive sleep apnea (adult) (pediatric) Status: Acute Assessment and Plan: 09/03/23: BiPAP/CPAP ordered with home settings (11) Benign prostatic hyperplasia: Code(s): N40.0 - Benign prostatic hyperplasia without lower urinary tract symptoms Status: Acute Assessment and Plan: 09/03/23: Continue finish stride and tamsulosin (12) Pill dysphagia: Code(s): R13.10 - Dysphagia, unspecified Status: Acute Assessment and Plan: 09/03/23: Has trouble swallowing pills Time Spent With Patient Time with patient: Greater than 35 minutes Subjective Date/time seen: 09/03/23 10:06 Interval history: This is a 68 year male who presented to the hospital on 09/02/2023 with abdominal pain. Patient was just seen in in the emergen
--- NOTE | 2023-09-03 10:33 | WPDGICN ---
Assessment and Plan Assessment and plan (1) Pill dysphagia: Code(s): R13.10 - Dysphagia, unspecified Status: Acute Assessment and Plan: Dysphagia-New onset last several days along with odynophagia for past 3-4 days with food and pills getting stuck in throat. Hx of GERD. last EGD 02/2023 Mild gastritis in the stomach, polyps observed in the fundus and duodenum-5 mm second part of the duodenum. Stricture vs. Ring vs. Larissa vs. Malignancy? -EGD to be arranged today (2) Gastroesophageal reflux disease: Code(s): K21.9 - Gastro-esophageal reflux disease without esophagitis Status: Acute Assessment and Plan: Continue pantoprazole Further recs following EGD (3) Colitis: Code(s): K52.9 - Noninfective gastroenteritis and colitis, unspecified Status: Inactive Assessment and Plan: CT 08/30/23 with possible wall thickening in distal large bowel. This could explain abdominal pain? On Augmentin, which he can continue Etiology? Could be related to distension from constipation, inflammatory or infectious although less likley Will get stool studies Recommend outpatient colonoscopy. (4) End-stage renal disease on peritoneal dialysis: Code(s): N18.6 - End stage renal disease; Z99.2 - Dependence on renal dialysis Status: Acute Assessment and Plan: gets nightly peritoneal dialysis Nephrology consulted (5) Abdominal pain: Qualifiers: Abdominal location: lower abdomen, unspecified Qualified Code(s): R10.30 - Lower abdominal pain, unspecified Code(s): R10.9 - Unspecified abdominal pain Status: Acute Assessment and Plan: R/t to colitis vs. constipation. Abdominal pain improved last Friday after he was cleaned out by the ER. No BM since Friday CT with distal colitis? has ascites, but this is normal due to peritoneal dialysis, No evidence of SBP, gram stain negative thus far Continue to tx colitis with Augmentin Bowel regimen recommended, see below (6) Chronic constipation: Code(s): K59.09 - Other constipation Status: Acute Assessment and Plan: Recommend good bowel regimen Consider Lactulose daily, discuss with nephrology. believes he was told not to take this. (7) History of gastric polyp: Code(s): Z87.19 - Personal history of other diseases of the digestive system Status: Acute Assessment and Plan: Hx of gastric polyps, past bx were hyperplastic (8) Polyp of small intestine: Code(s): K63.89 - Other specified diseases of intestine Status: Acute Assessment and Plan: Had tubular adenous small bowel polyp in the duodenum 02/2023. (9) Obstructive sleep apnea: Code(s): G47.33 - Obstructive sleep apnea (adult) (pediatric) Status: Acute (10) Insulin dependent type 2 diabetes mellitus: Code(s): E11.9 - Type 2 diabetes mellitus without complications; Z79.4 - skilled nursing (current) use of insulin Status: Acute (11) Hypothyroidism: Code(s): E03.9 - Hypothyroidism, unspecified Status: Acute (12) Hypertension: Code(s): I10 - Essential (primary) hypertension Status: Chronic (13) Hyperlipemia: Code(s): E78.5 - Hyperlipidemia, unspecified Status: Acute (14) Chronic diastolic (congestive) heart failure: Code(s): I50.32 - Chronic diastolic (congestive) heart failure Status: Acute (15) Anemia: Code(s): D64.9 - Anemia, unspecified Status: Chronic GI Consult Note Consult date/time: 09/03/23 10:33 Reason for consult: dysphagia and abdominal pain HPI: This is a pleasant 68 year old male with a past medical surgical history of end-stage renal disease on peritoneal dialysis, hypertension, dyslipidemia, congestive heart failure, coronary artery disease with history of stents, obstructive sleep apnea, insulin-dependent type 2 diabetes mellitus, hypothyroidism, benign prostatic hyperplasia, d
[2023-09-03 10:49] LABS: Iron 91 ug/dL (49-181)
[2023-09-03 11:00] LABS: Percent Iron Saturation 37 % (20-50)
[2023-09-03] MEDS: DEXTROSE 50% 25 GM/50 ML SYRINGE IV PUSH ×4 (11:54→17:01)
[2023-09-03] MEDS: MAGNESIUM SULF 2 GM/WATER 50ML 2 GM/50 ML BAG IVPB (11:59)
[2023-09-03 12:00] LABS: Folic Acid > 20.0 ng/mL (2.76->20)
[2023-09-03 12:01] LABS: Glucose Point of Care 54 mg/dl (65-105)
--- NOTE | 2023-09-03 12:21 | PM.CNNEP ---
Assessment and Plan Assessment and plan (1) End stage renal disease: Code(s): N18.6 - End stage renal disease Status: Inactive Assessment and Plan: resume CCPD tonight follow electrolytes, volume status, and clearance (2) Abdominal pain: Qualifiers: Abdominal location: lower abdomen, unspecified Qualified Code(s): R10.30 - Lower abdominal pain, unspecified Code(s): R10.9 - Unspecified abdominal pain Status: Acute Assessment and Plan: etiology not clear related to recent hernia surgery? related to GERD or PUD? doubt SBP at this time GI - following; EGD later today continue supportive therapy (3) Chronic diastolic (congestive) heart failure: Code(s): I50.32 - Chronic diastolic (congestive) heart failure Status: Chronic Assessment and Plan: volume status stable fluid removal to maintain euvolemia with peritoneal dialysis (4) Hypertension: Code(s): I10 - Essential (primary) hypertension Status: Chronic Assessment and Plan: reasonable control continue home medications follo trend of hemosynamics (5) Anemia: Code(s): D64.9 - Anemia, unspecified Status: Chronic Assessment and Plan: H/H at goal for ESRD follow trend of H/H start Epogen if Hgb drops below 10 (6) Diabetes mellitus: Code(s): E11.9 - Type 2 diabetes mellitus without complications Status: Chronic Assessment and Plan: follow accu-cheks glycemic control per load out worker/hospitalist I will continue to follow patient with you while he remains hospitalized and make further recommendations during his hospital course. Thank you for allowing me to participate in the care this patient. History of Present Illness Reason for Consult Consult date: 09/03/23 Reason for consult: end stage renal disease Chief Complaint Chief complaint: abdominal pain History of Present Illness Narrative: The patient is a 68-year-old male with a past medical history as outlined below who presented to [facility] Emergency Room for further evaluation of abdominal pain. The patient a recent right inguinal hernia repair done last month and since that time, he has been having lower abdominal pain. The abdominal pain is actually localized on the right side he described as a poking sensation that radiates to his periumbilical region. He apparently has had follow-up the surgeon who did the procedure with repeat imaging that did not demonstrate any acute findings and hence it was felt that his pain was just related to the healing process of the surgery. His pain continued until several days ago he was seen in the emergency room again although this time he thought it was pain related to constipation due to his pain medications. A subsequent CT scan of the abdomen pelvis done during that time showed possible wall thickening of the distal some large bowel, bilateral nonobstructing nephrolithiasis, stable splenomegaly, and moderate ascites related to his peritoneal dialysis. His labs on the timer otherwise unremarkable and he was otherwise hemodynamically stable so he is discharged with medications to optimize his bowel regimen. He apparently came back to the emergency room 2 days later after that visit with ongoing pain despite having multiple bowel movements following the use of the laxatives and stool softeners recommended. He apparently was started on Mag Augmentin for possible colitis at that time as well With subsequent discharge from the ER. He returned to the ER yesterday with the same abdominal pain in association with diaphoresis and feeling full with minimal oral intake. He also reports intermittent nausea and occasional emesis as well. no other reported subjective symptoms of fevers, chills, chest pain, shortness of breath, bloating, melena, hematochezia, or hematemesis. Workup and evaluation in the emergency room demonstrated t
[2023-09-03 12:29] LABS: Glucose Point of Care 89 mg/dl (65-105)
[2023-09-03] MEDS: DEXTROSE 5%/0.9% SOD CHL 1,000 ML 100 ML IV CONT (13:27)
[2023-09-03 13:29] LABS: Glucose Point of Care 55 mg/dl (65-105)
[2023-09-03 13:50] LABS: Glucose Point of Care 104 mg/dl (65-105)
[2023-09-03] MEDS: SODIUM CHLORIDE 0.9% IV 500 ML IV CONT (15:32)
[2023-09-03 15:34] LABS: Glucose Point of Care 63 mg/dl (65-105)
--- NOTE | 2023-09-03 15:37 | WPDANESEPPF ---
Anes - Initial Pre Proc Eval Procedure: Operation Date: 09/03/23 17:30 Proposed Procedures p Esophagogastroduodenoscopy - Jonatan Brown MD Date/Time: 09/03/23 15:37 Surgeon: Delroy Schwarz MD Pre Op Diagnosis: abdominal pain Patient Data Age: 68 Gender: M Height: 1.73 m Weight: 103.1 kg Last Vital Signs Temp 36.6 C 09/03/23 06:00 Pulse 57 L 09/03/23 09:08 Resp 18 09/03/23 07:50 BP 173/76 H 09/03/23 07:50 Pulse Ox 99 09/03/23 06:00 O2 Del Method Room Air 09/03/23 08:00 FiO2 21 09/02/23 18:11 Allergies Allergy/AdvReac Type Severity Reaction Status Date / Time No Known Allergies Allergy Verified 09/02/23 13:58 Home Medications Medication Instructions Recorded Confirmed Type blood-glucose meter (AppfricaTouch #1 ea 12/23/18 09/02/23 Rx Ultra2 Meter) lancets 30 gauge (AppfricaTouch Delica #100 ea 12/23/18 09/02/23 Rx Lancets) aspirin 81 mg tablet,delayed 81 mg PO DAILY 02/01/19 09/02/23 History release (Sami Low Dose Aspirin) vit C 250 mg-vit E 200 unit-zinc 1 tablet PO Q12H 02/01/19 09/02/23 History 12.5 mg-copper 1 fk-qdy-ykwaay tablet (ICaps AREDS2 (copper citrate)) blood sugar diagnostic (OneTouch 05/14/19 09/02/23 History Ultra Blue Test Strip) carvedilol 25 mg tablet (Coreg) 25 mg PO Q12H 09/06/19 09/02/23 History pen needle, diabetic 32 gauge x #200 ea 09/06/19 09/02/23 Rx 1/4 (BD Ultra-Fine Micro Pen Needle) insulin glargine 100 unit/mL (3 30 unit subcut Q12H 10/12/21 09/02/23 History mL) subcutaneous pen (Basaglar KwikPen U-100 Insulin) lisinopril 20 mg tablet 20 mg PO BID 08/12/22 09/02/23 History cholecalciferol (vitamin D3) 125 125 mcg PO 1400 08/15/23 07/16/24 History mcg (5,000 unit) tablet (Vitamin D3) folic acid 0.8 mg-vit B comp with 1 tablet PO DAILY 10/01/22 09/02/23 History A-oyox-efrkfca D3 2,000 unit tablet (Dialyvite 800-Ultra D) furosemide 80 mg tablet 80 mg PO BID 10/01/22 09/02/23 History insulin aspart U-100 100 unit/mL See Rx Instructions .Route .COMPLEX 10/01/22 09/02/23 History (3 mL) subcutaneous pen (Novolog FlexPen U-100 Insulin aspart) tamsulosin 0.4 mg capsule 0.4 mg PO HS 10/01/22 09/02/23 History diphenhydramine 25 2 tablet PO HS 03/12/23 09/02/23 History mg-acetaminophen 500 mg tablet (Tylenol PM Extra Strength) pantoprazole 40 mg tablet,delayed 40 mg PO HS 03/12/23 09/02/23 History release duloxetine 30 mg capsule,delayed 30 mg PO DAILY depression 04/09/23 09/02/23 History release fenofibrate nanocrystallized 145 145 mg PO DAILY #30 tabs 06/09/23 09/02/23 Rx mg tablet clonidine 0.1 mg/24 hr weekly 2 patch transdermal WEEKLY 07/21/23 09/02/23 History transdermal patch amoxicillin 250 mg-potassium 1 tablet PO BID #14 tabs 09/01/23 09/02/23 Rx clavulanate 125 mg tablet tramadol 50 mg tablet 50 mg PO Q6H PRN pain #30 tabs 09/01/23 09/02/23 Rx atorvastatin 80 mg tablet 80 mg PO HS 09/02/23 09/02/23 History cetirizine 10 mg capsule (Zyrtec) 10 mg PO Q12H PRN allergy symptoms 09/02/23 09/02/23 History diltiazem HCl 120 mg 120 mg PO Q12H 09/02/23 09/02/23 History capsule,extended release 12 hr finasteride 5 mg tablet 5 mg PO HS 09/02/23 09/02/23 History hydralazine 10 mg tablet 10 mg PO TID 09/02/23 09/02/23 History levothyroxine 112 mcg tablet 112 mcg PO DAILY 09/02/23 09/02/23 History lorazepam 0.5 mg tablet (Ativan) 0.5 mg PO PRN PRN Anxiety 09/02/23 09/02/23 History oxycodone-acetaminophen 5 mg-325 5 - 325 tablet PO PRN PRN Pain, 09/02/23 09/02/23 History mg tablet Moderate tizanidine 4 mg tablet 4 mg PO TID PRN muscle spasticity 09/02/23 09/02/23 History Laboratory Tests 09/02/23 09/02/23 09/02/23 20:41 21:47 23:41 WBC RBC Hgb Hct MCV MCH MCHC RDW Plt Count MPV Immature Gran % (Auto) Neut %
[2023-09-03 15:48] LABS: Glucose Point of Care 98 mg/dl (65-105)
--- NOTE | 2023-09-03 15:48 | SUR.PREOP ---
Pt's blood sugar checked at 1547 with a 98 result. Patient said his headache is almost gone. C/o headache when I picked him up from his inpt room. Patient's blood sugar was 63 upon arriving in Endoscopy unit. Dextrose IV given to treat.
--- NOTE | 2023-09-03 17:04 | SUR.PHASEII ---
Patient's blood sugar after procedure was 57. Dr. Casas gave the order to use PRN Dextrose 50% 12.5g from the floor. Will recheck blood sugar in 15 minutes per protocol.
[2023-09-03 17:06] LABS: Glucose Point of Care 57 mg/dl (65-105)
[2023-09-03 17:18] LABS: Glucose Point of Care 103 mg/dl (65-105)
[2023-09-03] MEDS: FENOFIBRATE NANOCRYSTALLIZED 145 MG TABLET PO (17:46)
[2023-09-03] MEDS: DULoxetine HCL 30 MG CAPSULE.DR PO (17:46)
[2023-09-03] MEDS: POTASSIUM CHLORIDE 20 MEQ ER TABLET 40 MEQ PO (17:46)
[2023-09-03] MEDS: CHOLECALCIFEROL 1,000 UNITS TABLET 5000 UNITS PO (17:47)
[2023-09-03] MEDS: PANTOPRAZOLE 40 MG TABLET PO (20:30)
[2023-09-03] MEDS: FINASTERIDE 5 MG TABLET PO (20:36)
[2023-09-03] MEDS: ATORVASTATIN 40 MG TABLET 80 MG PO (20:36)
[2023-09-03] MEDS: LORazepam (*CRX) 0.5 MG TABLET PO (20:52)
[2023-09-03] MEDS: MORPHINE SULFATE (*CRX) 2 MG/ML INJ IV PUSH (22:27)
[2023-09-04] MEDS: diphenhydrAMINE HCl CAP 25 MG CAPSULE 50 MG PO (00:27)
[2023-09-04 04:27] LABS: Glucose Point of Care 183 mg/dl (65-105)
[2023-09-04] MEDS: DEXTROSE 5%/0.9% SOD CHL 1,000 ML 100 ML IV CONT (04:29)
[2023-09-04 05:45] LABS: Hematocrit 35.1 % (42.0-52.0); Hemoglobin 11.1 g/dL (14.0-18.0); Mean Corpuscular HGB Conc 31.6 g/dl (32-36); Mean Corpuscular Hemoglobin 30.7 pg (26-34); Mean Corpuscular Volume 97.2 fl (80-100); Mean Platelet Volume 10.8 fl (7.4-10.4); Platelet Count Result 161 k/mm3 (150-375); Red Blood Count 3.61 M/mm3 (4.6-6.20); Red Cell Distribution Width 15.9 % (11.5-14.5); White Blood Count 6.4 K/mm3 (4.5-10.0)
[2023-09-04 05:53] LABS: Basophils Percent Auto 0.2 % (0.2-1.2); Eosinophils Percent Auto 0.3 % (0-4.4); Immature Granulocyte Percent A 0.8 % (0-0.5); Lymphocytes Percent Auto 12.4 % (18.3-44.2); Monocytes Percent Auto 13.5 % (2.6-8.5); Neutrophils Percent Auto 72.8 % (45.5-73.1)
[2023-09-04 05:54] LABS: Immature Granulocyte Absolute 0.05 K/mm3 (0.00-0.031); Lymphocytes Absolute Auto 0.79 K/mm3 (0.9-3.2); Monocytes Absolute Auto 0.9 K/mm3 (0.1-0.6); Neutrophils Absolute Auto 4.7 K/mm3 (1.3-6.7)
[2023-09-04 05:57] VITALS: PULSE 48; RESP 18; TEMP 36.2; O2SAT 98
[2023-09-04 06:00] LABS: Alanine Aminotransferase 16 U/L (6-50); Albumin Level 3.2 g/dL (3.5-5.1); Alkaline Phosphatase 43 U/L (38-126); Anion Gap 12 mmol/L (4-12); Aspartate Amino Transferase 22 U/L (17-59); Bilirubin,Total 0.4 mg/dL (0.2-1.3); Blood Urea Nitrogen 45 mg/dL (9-20); Calcium 8.5 mg/dL (8.4-10.2); Carbon Dioxide 25 mmol/L (22-30); Chloride 100 mmol/L (98-107); Estimated CRCL calculation 9 ml/min; Estimated Glomerular Filt Rate 6; Glucose 190 mg/dL (65-110); Phosphorus 6.6 mg/dL (2.5-4.5); Potassium 3.5 mmol/L (3.4-5.0); Sodium 137 mmol/L (137-145)
[2023-09-04] MEDS: LEVOTHYROXINE SODIUM 112 MCG TABLET PO (06:09)
[2023-09-04 07:55] LABS: Glucose Point of Care 209 mg/dl (65-105)
[2023-09-04] MEDS: lisinopriL 20 MG TABLET PO (08:22)
[2023-09-04] MEDS: ASPIRIN 81 MG ENTERIC TABLET PO (08:22)
[2023-09-04] MEDS: AMOXICILLIN/CLAVULANATE K 250-125 MG TAB 1 TABLET PO (08:22)
[2023-09-04] MEDS: hydrALAZINE 10 MG TABLET PO (08:22)
[2023-09-04] MEDS: OPTI-GEN TAB 1 TABLET PO (08:22)
[2023-09-04] MEDS: DULoxetine HCL 30 MG CAPSULE.DR PO (08:22)
[2023-09-04] MEDS: FENOFIBRATE NANOCRYSTALLIZED 145 MG TABLET PO (08:22)
[2023-09-04] MEDS: dilTIAZem HCL 12 HR 60 MG CAP.12HR 120 MG PO (08:22)
[2023-09-04] MEDS: VITAMIN B CMPLX/VIT C/FOLIC AC 1 CAPSULE 1 CAP PO (08:22)
[2023-09-04] MEDS: FUROSEMIDE 80 MG TABLET PO (08:23)
[2023-09-04 08:25] VITALS: PULSE 56
[2023-09-04] MEDS: carvediloL 25 MG TABLET PO (08:25)
[2023-09-04] MEDS: INSULIN ASPART (*BKC) 100 UNITS/ML SUB-Q ×2 (08:26→11:58)
[2023-09-04] MEDS: INSULIN GLARGINE (*BKC) 100 UNITS/ML 20 UNITS SUB-Q (08:26)
--- NOTE | 2023-09-04 08:26 | P.PNNP_ITS ---
Progress Note: A&P Assessment and Plan (1) End stage renal disease: Code(s): N18.6 - End stage renal disease Status: Inactive Assessment and Plan: * continue nightly CCPD * follow electrolytes, volume status, and clearance * replete electrolytes as needed (2) Abdominal pain: Qualifiers: Abdominal location: lower abdomen, unspecified Qualified Code(s): R10.30 - Lower abdominal pain, unspecified Code(s): R10.9 - Unspecified abdominal pain Status: Acute Assessment and Plan: * etiology not clear * related to recent hernia surgery? * related to GERD or PUD? * doubt SBP at this time * GI - following; EGD yesterday with findings noted * continue supportive therapy (3) C. difficile colitis: Code(s): A04.72 - Enterocolitis due to Clostridium difficile, not specified as recurrent Status: Acute Assessment and Plan: * as noted by recent testing * started on appropriate therapy * etiology of #2 (?) (4) Chronic diastolic (congestive) heart failure: Code(s): I50.32 - Chronic diastolic (congestive) heart failure Status: Chronic Assessment and Plan: * volume status stable * fluid removal to maintain euvolemia with peritoneal dialysis (5) Hypertension: Code(s): I10 - Essential (primary) hypertension Status: Chronic Assessment and Plan: * reasonable control * continue home medications * follo trend of hemosynamics (6) Anemia: Code(s): D64.9 - Anemia, unspecified Status: Chronic Assessment and Plan: * H/H at goal for ESRD * follow trend of H/H * start Epogen if Hgb drops below 10 (7) Diabetes mellitus: Code(s): E11.9 - Type 2 diabetes mellitus without complications Status: Chronic Assessment and Plan: * follow accu-cheks * glycemic control per creative consultant/hospitalist Will continue to follow. Subjective Date/time seen: 09/04/23 08:26 Interval history: Follow-up for end stage renal disease on peritoneal dialysis. Tolerated CCPD treatment last night without any issues or problems (PD treatment supervised at 08:15AM); s/p EGD with findings noted; discovered to have C. diff colitis by testing and started on appropriate medications. Exam Narrative: General: WD/WN male in NAD Heart: normal S1 and S2; no rub Lungs: clear bilaterally Abdomen: soft, nontender, nondistended, positive bowel sounds Extremities: no cyanosis or clubbing; no edema Skin: warm and dry Objective Data Vital Signs Vital Signs: Vital Signs Temp Pulse Resp BP Pulse Ox O2 Del Method 09/04/23 08:25 56 L 09/04/23 05:57 97.2 F L 48 L 18 98 09/03/23 23:00 Room Air 09/03/23 22:00 97.3 F L 61 18 98 09/03/23 20:27 100 Room Air 09/03/23 20:31 61 09/03/23 18:07 98.0 F 51 L 18 153/46 H 100 09/03/23 17:05 51 L 15 152/69 H 100 Room Air 09/03/23 16:55 52 L 15 141/67 H 99 Room Air 09/03/23 16:45 47 L 13 123/62 96 Room Air 09/03/23 15:35 97 F L 48 L 18 153/67 H 100 Room Air Intake/Output Intake/Output: Intake & Output 09/01/23 09/02/23 09/03/23 09/04/23 23:59 23:59 23:59 23:59 Intake Total 970 1320
--- NOTE | 2023-09-04 08:26 | PM.PNNEP ---
Progress Note: A&P Assessment and Plan (1) End stage renal disease: Code(s): N18.6 - End stage renal disease Status: Inactive Assessment and Plan: continue nightly CCPD follow electrolytes, volume status, and clearance replete electrolytes as needed (2) Abdominal pain: Qualifiers: Abdominal location: lower abdomen, unspecified Qualified Code(s): R10.30 - Lower abdominal pain, unspecified Code(s): R10.9 - Unspecified abdominal pain Status: Acute Assessment and Plan: etiology not clear related to recent hernia surgery? related to GERD or PUD? doubt SBP at this time GI - following; EGD yesterday with findings noted continue supportive therapy (3) C. difficile colitis: Code(s): A04.72 - Enterocolitis due to Clostridium difficile, not specified as recurrent Status: Acute Assessment and Plan: as noted by recent testing started on appropriate therapy etiology of #2 (?) (4) Chronic diastolic (congestive) heart failure: Code(s): I50.32 - Chronic diastolic (congestive) heart failure Status: Chronic Assessment and Plan: volume status stable fluid removal to maintain euvolemia with peritoneal dialysis (5) Hypertension: Code(s): I10 - Essential (primary) hypertension Status: Chronic Assessment and Plan: reasonable control continue home medications follo trend of hemosynamics (6) Anemia: Code(s): D64.9 - Anemia, unspecified Status: Chronic Assessment and Plan: H/H at goal for ESRD follow trend of H/H start Epogen if Hgb drops below 10 (7) Diabetes mellitus: Code(s): E11.9 - Type 2 diabetes mellitus without complications Status: Chronic Assessment and Plan: follow accu-cheks glycemic control per switchboard and control room operator/hospitalist Will continue to follow. Subjective Date/time seen: 09/04/23 08:26 Interval history: Follow-up for end stage renal disease on peritoneal dialysis. Tolerated CCPD treatment last night without any issues or problems (PD treatment supervised at 08:15AM); s/p EGD with findings noted; discovered to have C. diff colitis by testing and started on appropriate medications. Exam Narrative: General: WD/WN male in NAD Heart: normal S1 and S2; no rub Lungs: clear bilaterally Abdomen: soft, nontender, nondistended, positive bowel sounds Extremities: no cyanosis or clubbing; no edema Skin: warm and dry Objective Data Vital Signs Vital Signs: Vital Signs Temp Pulse Resp BP Pulse Ox O2 Del Method 09/04/23 08:25 56 L 09/04/23 05:57 97.2 F L 48 L 18 98 09/03/23 23:00 Room Air 09/03/23 22:00 97.3 F L 61 18 98 09/03/23 20:27 100 Room Air 09/03/23 20:31 61 09/03/23 18:07 98.0 F 51 L 18 153/46 H 100 09/03/23 17:05 51 L 15 152/69 H 100 Room Air 09/03/23 16:55 52 L 15 141/67 H 99 Room Air 09/03/23 16:45 47 L 13 123/62 96 Room Air 09/03/23 15:35 97 F L 48 L 18 153/67 H 100 Room Air Intake/Output Intake/Output: Intake & Output 09/01/23 09/02/23 09/03/23 09/04/23 23:59 23:59 23:59 23:59 Intake Total 970 1790 Output Total 3615 1610 Balance -2645 180 Meds/Results Medications: Medications: Active Medications Generic Name Dose Route Trade Name Freq PRN Reason Acetaminophen 650 mg Acetaminophen 325 Mg Tablet PO Q4H PRN Mild Pain (1-3) or Fever Acetaminophen 1,000 mg Acetaminophen 500 Mg Tablet PO HS [facility] Amoxicillin/Clavulanate Potassium 1 tablet Amoxicillin/Clavulanate K 250-125 Mg Tab PO Q12HR [facility] Aspirin 81 mg Aspirin 81 Mg Enteric Tablet PO DAILY [facility] Atorvastatin Calcium 80 mg Atorvastatin 40 Mg Tablet PO HS [facility] Carvedilol 25 mg Carvedilol 25 Mg Tablet PO Q12HR [facility] Clonidine HCl 1 patch Clonidine 0.1 Mg/24 Hr Patch TRANSDERM WEEKLY [facility] Dextrose 12.5 g
[2023-09-04] MEDS: HEPARIN SODIUM 5,000 UNITS/ML VIAL 5000 UNITS SUB-Q (08:32)
[2023-09-04 09:42] LABS: Toxigenic C. Diff POSITIVE (NEGATIVE)
--- NOTE | 2023-09-04 10:02 | PM.DS ---
DS: Admitting Diagnosis Discharge Date 08/25/23 Admitting Diagnosis Abdominal pain Pill dysphagia End-stage renal disease on peritoneal dialysis Hypertension Hyperlipidemia Hypothyroidism Insulin-dependent type 2 diabetes mellitus SHABNAM BPH Anemia DS: Discharge Diagnosis Discharge Diagnosis (1) Abdominal pain: Qualifiers: Abdominal location: lower abdomen, unspecified Qualified Code(s): R10.30 - Lower abdominal pain, unspecified Code(s): R10.9 - Unspecified abdominal pain Status: Acute (2) Hypokalemia: Code(s): E87.6 - Hypokalemia Status: Acute (3) Hypomagnesemia: Code(s): E83.42 - Hypomagnesemia Status: Inactive (4) Anemia: Code(s): D64.9 - Anemia, unspecified Status: Chronic (5) End-stage renal disease on peritoneal dialysis: Code(s): N18.6 - End stage renal disease; Z99.2 - Dependence on renal dialysis Status: Chronic (6) Hypertension: Code(s): I10 - Essential (primary) hypertension Status: Chronic (7) Hyperlipemia: Code(s): E78.5 - Hyperlipidemia, unspecified Status: Acute (8) Hypothyroidism: Code(s): E03.9 - Hypothyroidism, unspecified Status: Acute (9) Insulin dependent type 2 diabetes mellitus: Code(s): E11.9 - Type 2 diabetes mellitus without complications; Z79.4 - roasterman (current) use of insulin Status: Acute (10) Obstructive sleep apnea: Code(s): G47.33 - Obstructive sleep apnea (adult) (pediatric) Status: Acute (11) Benign prostatic hyperplasia: Code(s): N40.0 - Benign prostatic hyperplasia without lower urinary tract symptoms Status: Acute (12) Pill dysphagia: Code(s): R13.10 - Dysphagia, unspecified Status: Acute DS: Summary Hospital Course Reason for hospitalization: Abdominal pain Pill dysphagia End-stage renal disease on peritoneal dialysis Hypertension Hyperlipidemia Hypothyroidism Insulin-dependent type 2 diabetes mellitus SHABNAM BPH Anemia Hospital Course: This is a 68 year male who presented to the hospital on 09/02/2023 with abdominal pain. Patient was just seen in in the emergency room 2 days ago and was sent home with Augmentin for possible colitis however pain has not resolved and he has had intermittent nausea and occasional emesis. Workup in the hospital included CT of the abdomen pelvis which showing large bowel wall thickening, moderate abdominopelvic ascites likely related to peritoneal dialysis, bilateral nonobstructing nephrolithiasis. Initial labs showed a normal white blood cell count of 6.4, hemoglobin 10.6 sodium 135, chloride 93, creatinine 8.2, EGFR 7, lactic acid 1.4, lipase 347. Augmentin was continued at that time. GI was consulted and took patient for an EGD which shown mild gastritis and polyps in the stomach. Multiple biopsies were taken and sent off to cytology. He did report 8/10 pain in his abdomen last night after eating dinner and had loose stool this morning which was sent off for C diff. He was C diff positive and started on vancomycin and Flagyl oral. He is stable for discharge at this time. He will need to follow up with GI in 1 week. Final diagnosis: C diff colitis, gastritis Status at Discharge Cognitive/behavioral status at discharge: Alert oriented x4 Functional status at discharge: independent ambulation Overall status at discharge: patient is progressing back to baseline Time Spent with Patient Time attestation: Total time spent providing and/or coordinating discharge services: Time spent: Greater than 30 minutes Exam Narrative: General: In no acute distress, well nourished Cardiac: No murmur, friction rubs, peripheral pulses intact. Respiratory: Lungs clear to auscultation, no adventitious lung sounds, currently on room air Gastrointestinal: soft, non-distended, tenderness in left lower quadrant, normoactive bowel sounds. : voiding without difficulty. Extremities: moves a
[2023-09-04 10:48] VITALS: BP 148/63; PULSE 51; RESP 18; TEMP 36.1
[2023-09-04 11:42] LABS: Glucose Point of Care 226 mg/dl (65-105)
[2023-09-04] MEDS: ACETAMINOPHEN 325 MG TABLET 650 MG PO (11:57)
== END 2023-09-04 12:13 | disposition home or self-care (01) ==
LOC: ANHED 15:36 → ANH3MED 09-03 07:11
PROVIDERS: Emergency Medicine; Internal Medicine Gastroenterology; Internal Medicine Nephrology; Nurse Practitioner; Nurse Practitioner Acute Care; Physician Assistant; Admitting Provider Internal Medicine; Emergency Provider Family Medicine; PCP Family Medicine; Visit Provider General Practice
PROC: 0DJ08ZZ Inspection of Upper Intestinal Tract, Via Natural or Artificial Opening Endoscopic (ICD-10-PCS; CPT 43235; principal; 2023-09-03 17:30)
DX: K29.50 Unspecified chronic gastritis without bleeding (principal); K21.00 Gastro-esophageal reflux disease with esophagitis, without bleeding; K31.7 Polyp of stomach and duodenum; E87.6 Hypokalemia; E83.42 Hypomagnesemia; I13.2 Hypertensive heart and chronic kidney disease with heart failure and with stage 5 chronic kidney disease, or end stage renal disease; E11.22 Type 2 diabetes mellitus with diabetic chronic kidney disease; I50.32 Chronic diastolic (congestive) heart failure; N18.6 End stage renal disease; Z99.2 Dependence on renal dialysis; R13.10 Dysphagia, unspecified; D64.9 Anemia, unspecified; E78.00 Pure hypercholesterolemia, unspecified; G47.33 Obstructive sleep apnea (adult) (pediatric); E03.9 Hypothyroidism, unspecified; F41.9 Anxiety disorder, unspecified; N40.0 Benign prostatic hyperplasia without lower urinary tract symptoms; K74.60 Unspecified cirrhosis of liver; K59.09 Other constipation; Z79.4 Long term (current) use of insulin; Z79.82 Long term (current) use of aspirin; Z85.528 Personal history of other malignant neoplasm of kidney; Z90.5 Acquired absence of kidney; Z95.5 Presence of coronary angioplasty implant and graft; Z87.19 Personal history of other diseases of the digestive system
CPT/HCPCS: 43239; 36415; 80048; 80053; 82607; 82728; 82746; 82948; 83036; 83540; 83550; 83605; 83690; 83735; 84100; 84145; 84443; 85025; 86140; 87045; 87070; 87075; 87205; 87427; 87449; 87493; 88305; 89051; 90945; 99285; A9270; G0378; J1644; J1815; J2001; J2270; J2704; J3475; J7040; J7042

== ENCOUNTER 2023-09-18 20:01 | Emergency (ER) | payer MEDICARE, SELFPAY ==
--- NOTE | ~2023-09-18 | CT_ITS ---
EXAMINATION: CTA chest PE abdomen pel DATE: 09/18/2023 22:35 INDICATION: Chest pain. Elevated lipase. TECHNIQUE: Computed tomography (CT) pulmonary angiogram of the chest was performed with 100 mL Omnipa que-350 intravenous contrast. Additional 3D reconstructions utilizing coronal maximum intensity proje ction (MIP) were performed. CT of the abdomen and pelvis was performed with intravenous contrast util izing the same contrast bolus following a short delay. Automated exposure control and iterative recon struction technique were employed. The dose-length product was 1788.89 mGy-cm. COMPARISON: 05/06/2023, 08/30/2023 and 09/02/2020 FINDINGS: Chest: No pulmonary embolism. Couple calcified nodules in the right lung along with calcified right hilar ly mph nodes consistent with old granulomatous disease. 6 mm noncalcified granuloma in the left lower lo be unchanged since 09/02/2020. No pneumonia, pulmonary edema, pleural effusion or pneumothorax. Heart size is normal. Atherosclerotic coronary artery calcifications. Trace pericardial effusion. Thoracic aorta is normal in caliber with no dissection. Unchanged mildly prominent likely reactive right parat tray lymph node measuring 11 mm maximal short axis diameter. No other pathologically enlarged thor acic lymphadenopathy. Interval progression of healing of a chronic sternal fracture with plate and sc rew fixation. There are bridging osteophytes at multiple levels consistent with diffuse idiopathic sk eletal hyperostosis (DISH). Abdomen/pelvis: Cholecystectomy clips the gallbladder fossa. A couple subtle small low-attenuation lesions caudal asp ect of the right hepatic lobe, the larger measuring 1.3 cm which are unchanged since 2020 most likely focal hepatic steatosis or hemangiomas. 1.5 cm low-attenuation lesion in the spleen also without fabio nge since 2020 most likely hemangioma. Small calcification at the tail the pancreas likely sequela of chronic pancreatitis. Moderate amount of ascites scattered throughout the abdomen and pelvis includi ng in the lesser sac along the pancreas but without definitive peripancreatic inflammatory stranding to more specifically suggest acute pancreatitis. The sizes likely due to peritoneal dialysis with cat heter coiled in the right pelvis. Bilateral adrenal glands are normal. Postoperative changes at the u pper pole of the right kidney. Again seen are multiple bilateral renal lesions which include multiple simple low-attenuation cysts as well as a few high attenuation likely proteinaceous/hemorrhagic cyst s with similar attenuation seen on recent noncontrast CT dated 08/21/2023. 2.6 cm enhancing mass at the upper pole of the left kidney consistent with renal cell carcinoma. No bowel obstruction. Normal uzma endix. Decompressed bladder is unremarkable. Prostatomegaly. Bilateral fat-containing inguinal hernia s with stranding in the overlying subcutaneous fat on the right consistent with reported recent ingui nal hernia repair. Calcifications along the penile fascia consistent with Peyronie's disease. No absc ess or free intraperineal gas. No pathologically enlarged abdominal or pelvic lymphadenopathy. There is calcified atherosclerosis of the aorta and many of the other arteries. IMPRESSION: 1. Chronic very small pericardial effusion. No pulmonary embolism or other acute cardiopulmonary dise ase. 2. Small amount of ascites scattered throughout the abdomen and pelvis likely related to peritoneal d ialysis. 3. 2.6 cm enhancing mass at the peripheral the left kidney consistent with renal cell carcinoma. 2. Reviewed, dictated and finalized at location A. IMPRESSION: 1. Chronic very small pericardial effusion. No pulmonary embolism or other acut e cardiopulmonary disease. 2. Small amount of ascites scattered throughout the abdomen and
--- NOTE | ~2023-09-18 | XR_ITS ---
EXAMINATION: XR chest 2V DATE: 09/18/2023 20:30 INDICATION: Chest pain TECHNIQUE: PA and lateral views of the chest were obtained. COMPARISON: Chest radiograph dated 06/26/2023 FINDINGS: Calcified nodules in the right upper lung consistent with old granulomatous disease. No focal airspac e opacities, pulmonary edema, pleural effusion or pneumothorax. Heart size is normal. Likely median s ternotomy with plain screw fixation. Cholecystectomy clips in the right upper quadrant. IMPRESSION: 1. No acute cardiopulmonary disease. Reviewed, dictated and finalized at location A.
--- NOTE | 2023-09-18 20:04 | ECG_ITS ---
Test Date: 2023-09-18 20:09:08 Measurements Intervals [place] Rate: 62 P: 78 NV: 153 QRS: -64 QRSD: 101 T: 56 QT: 464 QTc: 472 Interpretive Statements SINUS RHYTHM WITH OCCASIONAL VENTRICULAR PREMATURE COMPLEXES LEFT ANTERIOR FASCICULAR BLOCK [QRS AXIS <= -45, QR IN I, RS IN II] PROLONGED QT INTERVAL ABNORMAL ECG Compared to ECG 08/19/2023 17:09:25 PVC IS NOTED Electronically Signed On 09-19-2023 11:19:15 CDT by Elroy Miranda M.D.
[2023-09-18 20:33] VITALS: BP 159/75; PULSE 65; RESP 20; TEMP 36.1; O2SAT 100
[2023-09-18 20:39] LABS: Basophils Percent Auto 0.3 % (0.2-1.2); Eosinophils Percent Auto 0.1 % (0-4.4); Hemoglobin 12.2 g/dL (14.0-18.0); Immature Granulocyte Absolute 0.22 K/mm3 (0.00-0.031); Lymphocytes Absolute Auto 0.89 K/mm3 (0.9-3.2); Lymphocytes Percent Auto 12.3 % (18.3-44.2); Mean Corpuscular Hemoglobin 31.6 pg (26-34); Mean Corpuscular Volume 95.9 fl (80-100); Mean Platelet Volume 10.9 fl (7.4-10.4); Monocytes Absolute Auto 0.9 K/mm3 (0.1-0.6); Monocytes Percent Auto 11.9 % (2.6-8.5); Neutrophils Absolute Auto 5.2 K/mm3 (1.3-6.7); Neutrophils Percent Auto 72.4 % (45.5-73.1); Nucleated Red Blood Cells Perc 0.3 % (0.0-0.2); Platelet Count Result 188 k/mm3 (150-375); Red Blood Count 3.86 M/mm3 (4.6-6.20); Red Cell Distribution Width 15.6 % (11.5-14.5); White Blood Count 7.2 K/mm3 (4.5-10.0)
[2023-09-18 20:47] LABS: Alanine Aminotransferase 16 U/L (6-50); Albumin Level 3.6 g/dL (3.5-5.1); Alkaline Phosphatase 79 U/L (38-126); Anion Gap 14 mmol/L (4-12); Aspartate Amino Transferase 29 U/L (17-59); Bilirubin,Total 0.6 mg/dL (0.2-1.3); Blood Urea Nitrogen 33 mg/dL (9-20); Calcium 7.8 mg/dL (8.4-10.2); Carbon Dioxide 28 mmol/L (22-30); Chloride 93 mmol/L (98-107); Estimated CRCL calculation 9 ml/min; Estimated Glomerular Filt Rate 6; Glucose 198 mg/dL (65-110); Lipase 312 U/L (23-300); Potassium 3.6 mmol/L (3.4-5.0); Sodium 135 mmol/L (137-145)
[2023-09-18 20:50] LABS: INR 0.9; Prothrombin Time 12.8 Seconds (11.1-14.7)
[2023-09-18 20:51] LABS: Partial Thromboplastin Time 26.9 Seconds (22.3-36.8)
[2023-09-18 21:08] LABS: Troponin I 0.053 ng/mL (0.000-0.034)
[2023-09-18 21:15] VITALS: PULSE 65; RESP 12; O2SAT 100
[2023-09-18 21:16] VITALS: BP 186/86; PULSE 61; RESP 21; O2SAT 97
[2023-09-18] MEDS: ASPIRIN 81 MG CHEWABLE TABLET 324 MG PO (21:24)
--- NOTE | 2023-09-18 21:43 | ED.GENADULT ---
HPI - General Adult General Chief complaint: Chest Pain Stated complaint: chest pain Time Seen by Provider: 09/18/23 21:11 History of Present Illness HPI narrative: Patient is a 68-year-old gentleman who presents emergency department with chief complaint of chest and back pain patient reports that he goes in the epigastric region reports that the pain hurts right around his shoulder blade describes it is an aching like sensation patient reports no fever does report that he has history of peritoneal dialysis. Related Data Home Medications Medication Instructions Recorded Confirmed aspirin 81 mg tablet,delayed 81 mg PO DAILY 02/01/19 09/02/23 release (Sami Low Dose Aspirin) vit C 250 mg-vit E 200 unit-zinc 1 tablet PO Q12H 02/01/19 09/02/23 12.5 mg-copper 1 gx-leb-ixaakn tablet (ICaps AREDS2 (copper citrate)) blood sugar diagnostic (OneTouch 05/14/19 09/02/23 Ultra Blue Test Strip) carvedilol 25 mg tablet (Coreg) 25 mg PO Q12H 09/06/19 09/02/23 insulin glargine 100 unit/mL (3 30 unit subcut Q12H 10/12/21 09/02/23 mL) subcutaneous pen (Basaglar KwikPen U-100 Insulin) lisinopril 20 mg tablet 20 mg PO BID 08/12/22 09/02/23 cholecalciferol (vitamin D3) 125 125 mcg PO 1400 10/01/22 09/02/23 mcg (5,000 unit) tablet (Vitamin D3) folic acid 0.8 mg-vit B comp with 1 tablet PO DAILY 10/01/22 09/02/23 R-zvte-omwrpoy D3 2,000 unit tablet (Dialyvite 800-Ultra D) furosemide 80 mg tablet 80 mg PO BID 10/01/22 09/02/23 insulin aspart U-100 100 unit/mL See Rx Instructions .Route .COMPLEX 10/01/22 09/02/23 (3 mL) subcutaneous pen (Novolog FlexPen U-100 Insulin aspart) tamsulosin 0.4 mg capsule 0.4 mg PO HS 10/01/22 09/02/23 diphenhydramine 25 2 tablet PO HS 03/12/23 09/02/23 mg-acetaminophen 500 mg tablet (Tylenol PM Extra Strength) duloxetine 30 mg capsule,delayed 30 mg PO DAILY depression 04/09/23 09/02/23 release clonidine 0.1 mg/24 hr weekly 2 patch transdermal WEEKLY 07/21/23 09/02/23 transdermal patch atorvastatin 80 mg tablet 80 mg PO HS 09/02/23 09/02/23 cetirizine 10 mg capsule (Zyrtec) 10 mg PO Q12H PRN allergy symptoms 09/02/23 09/02/23 diltiazem HCl 120 mg 120 mg PO Q12H 09/02/23 09/02/23 capsule,extended release 12 hr finasteride 5 mg tablet 5 mg PO HS 09/02/23 09/02/23 hydralazine 10 mg tablet 10 mg PO TID 09/02/23 09/02/23 levothyroxine 112 mcg tablet 112 mcg PO DAILY 09/02/23 09/02/23 lorazepam 0.5 mg tablet (Ativan) 0.5 mg PO PRN PRN Anxiety 09/02/23 09/02/23 oxycodone-acetaminophen 5 mg-325 5 - 325 tablet PO PRN PRN Pain, 09/02/23 09/02/23 mg tablet Moderate tizanidine 4 mg tablet 4 mg PO TID PRN muscle spasticity 09/02/23 09/02/23 Allergies Allergy/AdvReac Type Severity Reaction Status Date / Time No Known Allergies Allergy Verified 09/18/23 20:40 Review of Systems Review of Systems: A 10 system review of systems was completed on the patient and is negative except for what is stated in the HPI. Nursing and ancillary documentation was reviewed. [facility] Past Medical History Medical History Anemia Arthritis Benign prostatic hyperplasia Chronic diastolic (congestive) heart failure Cirrhosis Clostridium difficile infection Coronary artery disease Depression with anxiety Dyslipidemia End-stage renal disease on peritoneal dialysis Gastroesophageal reflux disease Hypertension Hypothyroidism Insulin dependent type 2 diabetes mellitus Kidney stones Obstructive sleep apnea Pituitary tumor Status post resection. Renal cell carcinoma Status post partial left nephrectomy. Surgical History Surgical History History of arthroplasty of right knee History of cardiac catheterization (08/2020) Stent x2 to the LAD. History of cataract extraction History of cholecystectomy (2007) History of colonoscopy with polypectomy History of coronary art
[2023-09-19 00:03] LABS: Troponin I 0.052 ng/mL (0.000-0.034)
[2023-09-19] MEDS: BELLADONNA ALK/PHENOB ELIX 10 ML, MAG HYDROX/ALUMINUM HYD/SIMETH 30 ML, LIDOCAINE HCL 2... PO (01:00)
[2023-09-19 01:54] VITALS: BP 152/90; PULSE 57; RESP 15; O2SAT 98
== END 2023-09-19 01:55 | disposition home or self-care (01) ==
PROVIDERS: Emergency Provider Emergency Medicine; PCP Family Medicine
DX: R07.89 Other chest pain (principal); I25.10 Atherosclerotic heart disease of native coronary artery without angina pectoris; E11.22 Type 2 diabetes mellitus with diabetic chronic kidney disease; I13.2 Hypertensive heart and chronic kidney disease with heart failure and with stage 5 chronic kidney disease, or end stage renal disease; I50.9 Heart failure, unspecified; N18.6 End stage renal disease; E78.5 Hyperlipidemia, unspecified
CPT/HCPCS: 36415; 71046; 71275; 74177; 80053; 83690; 84484; 85025; 85610; 85730; 93005; 99284; A9270; Q9967

== ENCOUNTER 2023-09-24 19:35 | Observation (INO) | payer MEDICARE, SELFPAY ==
--- NOTE | ~2023-09-24 | US_ITS ---
Limited ABDOMINAL ULTRASOUND Ordering provider: Tim Sanchez MD History: . Pancreatitis . Comparison: None. FINDINGS: LIVER: Normal size and echotexture. No focal hepatic lesions or perihepatic fluid collections are yohannes ntified. Portal vein flow is normal. GALLBLADDER: Status post cholecystectomy. BILIARY DUCTS: No evidence for intra or extrahepatic biliary dilation. Common bile duct measures 7.1 mm in diameter which is within normal limits. PANCREAS: Normal visualized portion. KIDNEYS: Right measures 9.9 x 7.8x 6.5 cm in length There is no evidence for hydronephrosis, solid r enal mass, renal calculi or perinephric fluid collections. Multiple cysts with the largest measures 2 .5 x 2.4 x 3 cm. Minimal fluid seen adjacent to the right lobe of the liver. IMPRESSION: 1. Right renal cyst. Otherwise Unremarkable limited ultrasound of the abdomen. Reviewed, dictated and finalized at location A.
--- NOTE | ~2023-09-24 | XR_ITS ---
XR chest 2V Ordering provider: Aldair Rincon MD History: 68 years Male with . cp . Comparison: September 18, 2023 FINDINGS: MEDIASTINUM: The cardiac silhouette is not enlarged. LUNGS: No infiltrates, effusions or pneumothorax. Prominent markings in the lower lobes. Small granuloma in the right upper lobe. OTHER: No free air under the diaphragm. Degenerative changes of the spine. IMPRESSION: No acute cardiopulmonary pathology. Reviewed, dictated and finalized at location A.
[2023-09-24 19:36] VITALS: BP 186/91; PULSE 63; RESP 14; TEMP 36.4; O2SAT 100
--- NOTE | 2023-09-24 19:38 | ECG_ITS ---
Test Date: 2023-09-24 19:41:35 Measurements Intervals [place] Rate: 61 P: 46 MA: 142 QRS: -56 QRSD: 104 T: 33 QT: 449 QTc: 453 Interpretive Statements SINUS RHYTHM LEFT ANTERIOR SUPERIOR HEMIBLOCK ABNORMAL ECG Compared to ECG 09/18/2023 20:09:08 Prolonged QT interval no longer present Electronically Signed On 09-25-2023 07:13:25 CDT by Elroy Miranda M.D.
[2023-09-24 21:07] LABS: Basophils Percent Auto 0.3 % (0.2-1.2); Eosinophils Percent Auto 0.1 % (0-4.4); Hemoglobin 11.7 g/dL (14.0-18.0); Immature Granulocyte Absolute 0.42 K/mm3 (0.00-0.031); Immature Granulocyte Percent A 5.7 % (0-0.5); Lymphocytes Percent Auto 12.3 % (18.3-44.2); Mean Corpuscular HGB Conc 32.5 g/dl (32-36); Mean Corpuscular Hemoglobin 31.5 pg (26-34); Mean Platelet Volume 10.6 fl (7.4-10.4); Monocytes Percent Auto 13.5 % (2.6-8.5); Neutrophils Percent Auto 68.1 % (45.5-73.1); Platelet Count Result 162 k/mm3 (150-375); Red Blood Count 3.71 M/mm3 (4.6-6.20); Red Cell Distribution Width 17.2 % (11.5-14.5); White Blood Count 7.3 K/mm3 (4.5-10.0)
[2023-09-24 21:18] LABS: Alanine Aminotransferase 17 U/L (6-50); Albumin Level 3.4 g/dL (3.5-5.1); Alkaline Phosphatase 91 U/L (38-126); Anion Gap 12 mmol/L (4-12); Aspartate Amino Transferase 26 U/L (17-59); Bilirubin,Total 0.4 mg/dL (0.2-1.3); Blood Urea Nitrogen 37 mg/dL (9-20); Calcium 8.6 mg/dL (8.4-10.2); Carbon Dioxide 30 mmol/L (22-30); Chloride 94 mmol/L (98-107); Estimated CRCL calculation 9 ml/min; Estimated Glomerular Filt Rate 6; Glucose 159 mg/dL (65-110); Lipase 476 U/L (23-300); Potassium 3.4 mmol/L (3.4-5.0); Sodium 136 mmol/L (137-145)
[2023-09-24 21:23] LABS: Partial Thromboplastin Time 25.9 Seconds (22.3-36.8); Prothrombin Time 13.1 Seconds (11.1-14.7)
--- NOTE | 2023-09-24 22:59 | ECG_ITS ---
Test Date: 2023-09-24 22:59:47 Measurements Intervals [place] Rate: 60 P: 89 AL: 166 QRS: -67 QRSD: 104 T: 18 QT: 469 QTc: 471 Interpretive Statements SINUS RHYTHM PATTERN CONSISTENT WITH PULMONARY DISEASE LEFT ANTERIOR FASCICULAR BLOCK [QRS AXIS <= -45, QR IN I, RS IN II] ABNORMAL ECG Compared to ECG 09/24/2023 19:41:35 NO DIFFERENCE Electronically Signed On 09-26-2023 13:21:39 CDT by Elroy Miranda M.D.
[2023-09-24 23:14] LABS: Troponin I 0.054 ng/mL (0.000-0.034)
[2023-09-25] VITALS (19 sets, daily range): BP systolic 148–211; BP diastolic 59–90; PULSE 54–68; RESP 15–20; TEMP 36.1–36.8; O2SAT 96–100
[2023-09-25] MEDS: BELLADONNA ALK/PHENOB ELIX 10 ML, MAG HYDROX/ALUMINUM HYD/SIMETH 30 ML, LIDOCAINE HCL 2... PO (00:35)
[2023-09-25] MEDS: hydrALAZINE HCL 20 MG/ML VIAL 10 MG IV PUSH ×3 (00:36→15:53)
[2023-09-25] MEDS: HYDROmorphone HCL INJ (*CRX) 1 MG/ML SYR IV PUSH ×2 (00:36→19:07)
[2023-09-25] MEDS: PANTOPRAZOLE SODIUM IV 40 MG VIAL IV PUSH ×2 (00:36→08:50)
--- NOTE | 2023-09-25 01:38 | ED.GENADULT ---
HPI - General Adult General Chief complaint: Chest Pain Stated complaint: chest pain/lower back Time Seen by Provider: 09/24/23 23:32 History of Present Illness HPI narrative: Patient is a 68-year-old gentleman who presents emergency department with chief complaint of back pain epigastric pain. Patient reports that she does E and vomiting patient was seen in the emergency department several days ago with similar pain had a CT scan at that time that did not show any significant abnormalities. Patient reports that he has been still having a lot of discomfort and had no no improvement. Related Data Home Medications Medication Instructions Recorded Confirmed aspirin 81 mg tablet,delayed 81 mg PO DAILY 02/01/19 09/02/23 release (Sami Low Dose Aspirin) vit C 250 mg-vit E 200 unit-zinc 1 tablet PO Q12H 02/01/19 09/02/23 12.5 mg-copper 1 gj-wyk-pejime tablet (ICaps AREDS2 (copper citrate)) blood sugar diagnostic (OneTouch 05/14/19 09/02/23 Ultra Blue Test Strip) carvedilol 25 mg tablet (Coreg) 25 mg PO Q12H 09/06/19 09/02/23 insulin glargine 100 unit/mL (3 30 unit subcut Q12H 10/12/21 09/02/23 mL) subcutaneous pen (Basaglar KwikPen U-100 Insulin) lisinopril 20 mg tablet 20 mg PO BID 08/12/22 09/02/23 cholecalciferol (vitamin D3) 125 125 mcg PO 1400 10/01/22 09/02/23 mcg (5,000 unit) tablet (Vitamin D3) folic acid 0.8 mg-vit B comp with 1 tablet PO DAILY 10/01/22 09/02/23 J-godf-qfpajlr D3 2,000 unit tablet (Dialyvite 800-Ultra D) furosemide 80 mg tablet 80 mg PO BID 10/01/22 09/02/23 insulin aspart U-100 100 unit/mL See Rx Instructions .Route .COMPLEX 10/01/22 09/02/23 (3 mL) subcutaneous pen (Novolog FlexPen U-100 Insulin aspart) tamsulosin 0.4 mg capsule 0.4 mg PO HS 10/01/22 09/02/23 diphenhydramine 25 2 tablet PO HS 03/12/23 09/02/23 mg-acetaminophen 500 mg tablet (Tylenol PM Extra Strength) duloxetine 30 mg capsule,delayed 30 mg PO DAILY depression 04/09/23 09/02/23 release clonidine 0.1 mg/24 hr weekly 2 patch transdermal WEEKLY 07/21/23 09/02/23 transdermal patch atorvastatin 80 mg tablet 80 mg PO HS 09/02/23 09/02/23 cetirizine 10 mg capsule (Zyrtec) 10 mg PO Q12H PRN allergy symptoms 09/02/23 09/02/23 diltiazem HCl 120 mg 120 mg PO Q12H 09/02/23 09/02/23 capsule,extended release 12 hr finasteride 5 mg tablet 5 mg PO HS 09/02/23 09/02/23 hydralazine 10 mg tablet 10 mg PO TID 09/02/23 09/02/23 levothyroxine 112 mcg tablet 112 mcg PO DAILY 09/02/23 09/02/23 oxycodone-acetaminophen 5 mg-325 5 - 325 tablet PO PRN PRN Pain, 09/02/23 09/02/23 mg tablet Moderate tizanidine 4 mg tablet 4 mg PO TID PRN muscle spasticity 09/02/23 09/02/23 Allergies Allergy/AdvReac Type Severity Reaction Status Date / Time No Known Allergies Allergy Verified 09/24/23 19:35 Review of Systems Review of Systems: A 10 system review of systems was completed on the patient and is negative except for what is stated in the HPI. Nursing and ancillary documentation was reviewed. [facility] Past Medical History Medical History Anemia Arthritis Benign prostatic hyperplasia Chronic diastolic (congestive) heart failure Cirrhosis Clostridium difficile infection Coronary artery disease Depression with anxiety Dyslipidemia End-stage renal disease on peritoneal dialysis Gastroesophageal reflux disease Hypertension Hypothyroidism Insulin dependent type 2 diabetes mellitus Kidney stones Obstructive sleep apnea Pituitary tumor Status post resection. Renal cell carcinoma Status post partial left nephrectomy. Surgical History Surgical History History of arthroplasty of right knee History of cardiac catheterization (08/2020) Stent x2 to the LAD. History of cataract extraction History of cholecystectomy (2007) History of colonoscopy with polypectomy History of coronary art
[2023-09-25 02:30] LABS: Troponin I 0.061 ng/mL (0.000-0.034)
--- NOTE | 2023-09-25 02:57 | PC.NURSE ---
Pt reports 5/10 chest pain. supervisor [employer] Sade states pt cannot come up to the floor while having active chest pain. Dr. Johnson has been paged, waiting to hear back.
[2023-09-25] MEDS: cloNIDine HCL 0.1 MG TABLET PO (03:17)
--- NOTE | 2023-09-25 03:36 | ADMGEN ---
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 Patient/family oriented to hospital policies and general routines including ID bracelet, bed and alarms, visiting hours, pain management, procedures, bathroom and other care routines, personal items, smoking policy, room service/diet, and visiting hours. Information on how to activate the Rapid Response Team has been discussed. Patient/Family are encouraged to report perceived risks to care and to ask questions if they do not understand what they are told or what they should do.
[2023-09-25] MEDS: ACETAMINOPHEN 325 MG TABLET 650 MG PO (06:31)
[2023-09-25 09:01] LABS: Glucose Point of Care 110 mg/dl (65-105)
[2023-09-25 11:28] LABS: Cholesterol 158 mg/dL (0-200); HDL Direct 26 mg/dL; Triglycerides 347 mg/dL (<150)
[2023-09-25 11:40] LABS: LDL Cholesterol Direct 71 mg/dL
[2023-09-25 12:06] LABS: Troponin I 0.064 ng/mL (0.000-0.034)
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
[2023-09-25 17:39] LABS: MRSA (PCR) NOT DETECTED (NOT DETECTE)
[2023-09-25] MEDS: hydrALAZINE 10 MG TABLET PO (18:31)
[2023-09-25] MEDS: FUROSEMIDE 80 MG TABLET 160 MG PO (18:31)
[2023-09-25] MEDS: lisinopriL 20 MG TABLET PO (18:31)
[2023-09-25 20:12] LABS: Glucose Point of Care 176 mg/dl (65-105)
[2023-09-25] MEDS: diphenhydrAMINE HCl CAP 25 MG CAPSULE 50 MG PO (20:59)
[2023-09-25] MEDS: ATORVASTATIN 40 MG TABLET 80 MG PO (20:59)
[2023-09-25] MEDS: ACETAMINOPHEN 500 MG TABLET 1000 MG PO (20:59)
[2023-09-25] MEDS: dilTIAZem HCL 12 HR 60 MG CAP.12HR 120 MG PO (20:59)
[2023-09-25] MEDS: INSULIN GLARGINE (*BKC) 100 UNITS/ML 30 UNITS SUB-Q (21:00)
[2023-09-25] MEDS: TAMSULOSIN HCL 0.4 MG CAPSULE PO (21:00)
[2023-09-25] MEDS: carvediloL 25 MG TABLET PO (21:00)
[2023-09-25] MEDS: FINASTERIDE 5 MG TABLET PO (21:00)
[2023-09-25] MEDS: OPTI-GEN TAB 1 TABLET PO (21:00)
[2023-09-25] MEDS: ONDANSETRON INJ 4 MG/2 ML VIAL IV PUSH (21:07)
[2023-09-26] VITALS (10 sets, daily range): BP systolic 142–152; BP diastolic 45–68; PULSE 49–69; RESP 14–20; TEMP 36.1–37; O2SAT 97–100
[2023-09-26 04:51] LABS: Hematocrit 31.7 % (42.0-52.0); Hemoglobin 10.4 g/dL (14.0-18.0); Mean Corpuscular HGB Conc 32.8 g/dl (32-36); Mean Corpuscular Hemoglobin 31.9 pg (26-34); Mean Corpuscular Volume 97.2 fl (80-100); Mean Platelet Volume 10.9 fl (7.4-10.4); Platelet Count Result 141 k/mm3 (150-375); Red Blood Count 3.26 M/mm3 (4.6-6.20); White Blood Count 7.2 K/mm3 (4.5-10.0)
[2023-09-26 05:05] LABS: Alanine Aminotransferase 15 U/L (6-50); Alkaline Phosphatase 42 U/L (38-126); Anion Gap 14 mmol/L (4-12); Aspartate Amino Transferase 24 U/L (17-59); Bilirubin,Total 0.5 mg/dL (0.2-1.3); Blood Urea Nitrogen 43 mg/dL (9-20); Calcium 8.8 mg/dL (8.4-10.2); Carbon Dioxide 25 mmol/L (22-30); Chloride 97 mmol/L (98-107); Estimated CRCL calculation 9 ml/min; Estimated Glomerular Filt Rate 6; Glucose 194 mg/dL (65-110); Lipase 299 U/L (23-300); Potassium 3.3 mmol/L (3.4-5.0); Sodium 136 mmol/L (137-145)
[2023-09-26] MEDS: LEVOTHYROXINE SODIUM 112 MCG TABLET PO (06:42)
[2023-09-26 07:21] LABS: Glucose Point of Care 148 mg/dl (65-105)
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
[2023-09-26] MEDS: ENOXAPARIN 30 MG/0.3 ML SYRINGE SUB-Q (09:25)
[2023-09-26] MEDS: OPTI-GEN TAB 1 TABLET PO (09:25)
[2023-09-26] MEDS: VITAMIN B CMPLX/VIT C/FOLIC AC 1 CAPSULE 1 CAP PO (09:25)
[2023-09-26] MEDS: FUROSEMIDE 80 MG TABLET 160 MG PO ×2 (09:25→16:54)
[2023-09-26] MEDS: FENOFIBRATE NANOCRYSTALLIZED 145 MG TABLET PO (09:25)
[2023-09-26] MEDS: CHOLECALCIFEROL 5,000 UNITS TABLET 5000 UNITS PO (09:25)
[2023-09-26] MEDS: lisinopriL 20 MG TABLET PO ×2 (09:26→16:54)
[2023-09-26] MEDS: ASPIRIN 81 MG ENTERIC TABLET PO (09:26)
[2023-09-26] MEDS: PANTOPRAZOLE 40 MG TABLET PO ×2 (09:26→16:54)
[2023-09-26] MEDS: POTASSIUM CHLORIDE 10 MEQ ER TABLET PO (09:26)
[2023-09-26] MEDS: carvediloL 25 MG TABLET PO (09:26)
[2023-09-26] MEDS: hydrALAZINE 10 MG TABLET PO ×3 (09:27→16:54)
[2023-09-26] MEDS: FAMOTIDINE 20 MG TABLET 40 MG PO (09:27)
[2023-09-26] MEDS: INSULIN GLARGINE (*BKC) 100 UNITS/ML 30 UNITS SUB-Q (09:27)
[2023-09-26] MEDS: dilTIAZem HCL 12 HR 60 MG CAP.12HR 120 MG PO (09:27)
[2023-09-26] MEDS: cloNIDine 0.2 MG/24 HR PATCH 1 PATCH TRANSDERM (09:28)
[2023-09-26] MEDS: INSULIN ASPART (*BKC) 100 UNITS/ML SUB-Q ×2 (12:07→16:54)
[2023-09-26 12:40] LABS: Glucose Point of Care 215 mg/dl (65-105)
[2023-09-26] MEDS: polyethylene glycoL 3350 17 GM POWD.PACK PO (13:39)
[2023-09-26] MEDS: CALCIUM CARBONATE (TUMS) 500 MG (200 MG ELEMENTAL) PO (13:39)
[2023-09-26 16:18] LABS: Glucose Point of Care 234 mg/dl (65-105)
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
[2023-09-26] MEDS: GABAPENTIN 100 MG CAPSULE PO (16:54)
== END 2023-09-26 17:21 | disposition home or self-care (01) ==
LOC: ANHED 09-25 01:45 → ANH3MED 09-25 02:52 → ANHIMU 09-25 03:25 → ANH3MED 09-29 07:59
PROVIDERS: General Practice; Admitting Provider Internal Medicine; Emergency Provider Emergency Medicine; PCP Family Medicine; Visit Provider Internal Medicine
DX: R07.89 Other chest pain (principal); R10.13 Epigastric pain; I13.2 Hypertensive heart and chronic kidney disease with heart failure and with stage 5 chronic kidney disease, or end stage renal disease; I50.32 Chronic diastolic (congestive) heart failure; E11.22 Type 2 diabetes mellitus with diabetic chronic kidney disease; N18.6 End stage renal disease; Z99.2 Dependence on renal dialysis; E78.5 Hyperlipidemia, unspecified; E03.9 Hypothyroidism, unspecified; D64.9 Anemia, unspecified; N40.0 Benign prostatic hyperplasia without lower urinary tract symptoms; I25.10 Atherosclerotic heart disease of native coronary artery without angina pectoris; K21.9 Gastro-esophageal reflux disease without esophagitis; K74.60 Unspecified cirrhosis of liver; G47.33 Obstructive sleep apnea (adult) (pediatric); Z85.528 Personal history of other malignant neoplasm of kidney; Z90.5 Acquired absence of kidney; Z79.82 Long term (current) use of aspirin; Z79.4 Long term (current) use of insulin; Z79.891 Long term (current) use of opiate analgesic; Z95.5 Presence of coronary angioplasty implant and graft
CPT/HCPCS: 36415; 71046; 76705; 80053; 80061; 82948; 83690; 84484; 85025; 85027; 85610; 85730; 87040; 87641; 90945; 93005; 96372; 96374; 96375; 96376; 99285; A9270; G0378; J0360; J1170; J1650; J1815; J2405; J2470

== ENCOUNTER 2023-11-15 14:41 | Emergency (ER) | payer MEDICARE, SELFPAY ==
--- NOTE | ~2023-11-15 | XR_ITS ---
[id number] Ordering provider: Kristine Allen APRN History: . fall 2 weeks ago. rib pain x 2 days . Comparison: None. FINDINGS: BONES: No acute right rib fracture or fracture of the visualized osseous structures. LUNGS: No effusions or infiltrates. No pneumothorax. SOFT TISSUES: Normal. IMPRESSION: No right rib fracture . Reviewed, dictated and finalized at location A. IMPRESSION: No right rib fracture .
[2023-11-15 15:09] VITALS: BP 117/60; PULSE 93; RESP 18; TEMP 36.9; O2SAT 99
--- NOTE | 2023-11-15 15:19 | ED.GENADULT ---
HPI - General Adult General Chief complaint: Fall Stated complaint: Chest Pain Time Seen by Provider: 11/15/23 15:20 Source: patient, RN notes reviewed and old records reviewed Mode of arrival: ambulatory Limitations: no limitations History of Present Illness HPI narrative: 68-year-old male [facility] after falling. Patient states he was trying take off his pants, fell backwards and hit his head. Denies any symptoms currently. Did not seek medical treatment at that time. Patient reports chest right discomfort for 2 days. Wants to make sure that his ribs are okay. Denies any significant chest pain. Patient also concerned for his cartilage. Discussed that x-ray typically does not show cartilage issues appear Patient denies any shortness of breath. No erythema, ecchymosis noted to the area. Unable to reproduce pain with palpation Related Data Home Medications Medication Instructions Recorded Confirmed aspirin 81 mg tablet,delayed 81 mg PO DAILY 02/01/19 11/15/23 release (Sami Low Dose Aspirin) vit C 250 mg-vit E 200 unit-zinc 1 tablet PO Q12H 02/01/19 11/15/23 12.5 mg-copper 1 se-ciy-ktzqgy tablet (ICaps AREDS2 (copper citrate)) blood sugar diagnostic (OneTouch 05/14/19 11/15/23 Ultra Blue Test Strip) carvedilol 25 mg tablet (Coreg) 25 mg PO Q12H 09/06/19 11/15/23 insulin glargine 100 unit/mL (3 30 unit subcut Q12H 10/12/21 11/15/23 mL) subcutaneous pen (Basaglar KwikPen U-100 Insulin) lisinopril 20 mg tablet 20 mg PO BID 08/12/22 11/15/23 cholecalciferol (vitamin D3) 125 125 mcg PO DAILY 10/01/22 11/15/23 mcg (5,000 unit) tablet (Vitamin D3) folic acid 0.8 mg-vit B comp with 1 tablet PO DAILY 10/01/22 11/15/23 A-ezrx-dlgtkad D3 2,000 unit tablet (Dialyvite 800-Ultra D) furosemide 80 mg tablet 160 mg PO BID 10/01/22 11/15/23 insulin aspart U-100 100 unit/mL See Rx Instructions .Route .COMPLEX 10/01/22 11/15/23 (3 mL) subcutaneous pen (Novolog FlexPen U-100 Insulin aspart) diphenhydramine 25 2 tablet PO HS 03/12/23 11/15/23 mg-acetaminophen 500 mg tablet (Tylenol PM Extra Strength) atorvastatin 80 mg tablet 80 mg PO HS 09/02/23 11/15/23 diltiazem HCl 120 mg 120 mg PO Q12H 09/02/23 11/15/23 capsule,extended release 12 hr finasteride 5 mg tablet 5 mg PO HS 09/02/23 11/15/23 levothyroxine 112 mcg tablet 112 mcg PO DAILY 09/02/23 11/15/23 clonidine 0.2 mg/24 hr weekly 1 patch transdermal WEEKLY 09/25/23 11/15/23 transdermal patch hydralazine 10 mg tablet 20 mg PO TID 10/15/23 11/15/23 tadalafil 5 mg tablet 5 mg DAILY 11/15/23 11/15/23 Allergies Allergy/AdvReac Type Severity Reaction Status Date / Time No Known Allergies Allergy Verified 11/15/23 15:19 Review of Systems Review of Systems: All systems reviewed & are unremarkable except as noted in HPI and below Constitutional: Constitutional: Reports no additional constitutional complaints Eyes: Eyes: Reports no additional eye complaints ENT: Reports system reviewed and no additional complaints, except as documented Cardiovascular: Cardiovascular: Reports as per HPI, Denies chest pain, Denies edema and Denies dyspnea Respiratory: Respiratory: Reports no additional respiratory complaints, Denies chest congestion, Denies cough and Denies dyspnea Gastrointestinal: Gastrointestinal: Reports no additional gastrointestinal complaints, Denies abdominal pain, Denies nausea and Denies vomiting Musculoskeletal: Musculoskeletal: Reports no additional musculoskeletal complaints Integumentary/Breasts: Skin/Breast: Reports system reviewed and no additional complaints, except as docu Neurologic: Reports system reviewed and no additional complaints, except as documented Psychiatric: Psychiatric: Reports no additional psychiatric complaints Allergic/Immunologic: Allergic/Immunologic: Reports no additional allergic/immunologic complaints PMFSH Past Medical History Medical History (Reviewed 11/15/23 @ 19:
== END 2023-11-15 16:07 | disposition home or self-care (01) ==
PROVIDERS: Emergency Provider Nurse Practitioner; PCP Family Medicine
DX: R07.81 Pleurodynia (principal); W19.XXXA Unspecified fall, initial encounter; Z79.82 Long term (current) use of aspirin; I50.32 Chronic diastolic (congestive) heart failure; I25.10 Atherosclerotic heart disease of native coronary artery without angina pectoris; K21.9 Gastro-esophageal reflux disease without esophagitis; F41.8 Other specified anxiety disorders; E78.5 Hyperlipidemia, unspecified; E03.9 Hypothyroidism, unspecified; E11.22 Type 2 diabetes mellitus with diabetic chronic kidney disease; I13.2 Hypertensive heart and chronic kidney disease with heart failure and with stage 5 chronic kidney disease, or end stage renal disease; N18.6 End stage renal disease; Z99.2 Dependence on renal dialysis; Z79.4 Long term (current) use of insulin; G47.33 Obstructive sleep apnea (adult) (pediatric); Z85.53 Personal history of malignant neoplasm of renal pelvis; Z90.5 Acquired absence of kidney; Z95.828 Presence of other vascular implants and grafts
CPT/HCPCS: 71101; 99213; G0463

== ENCOUNTER 2023-12-26 10:48 | Outpatient (CLI) | payer MEDICARE, SELFPAY ==
--- NOTE | ~2023-12-26 | XR_ITS ---
Right wrist Technique: PA, oblique, lateral, and ulnar deviation views were obtained. Clinical History: Pain Findings: No acute fracture or dislocation is seen. Osseous alignment is anatomic. Joint spaces are p reserved. Vascular calcifications are noted. Impression: No significant abnormality seen. Reviewed, dictated and finalized at [facility]. CAL STRING MAKER Impression: No significant abnormality seen.
== END 2023-12-26 10:49 | disposition home or self-care (01) ==
PROVIDERS: PCP Family Medicine; Visit Provider Family Medicine
DX: M25.531 Pain in right wrist (principal)
CPT/HCPCS: 73110

== ENCOUNTER 2023-12-28 15:56 | Emergency (ER) | payer MEDICARE, SELFPAY ==
--- NOTE | ~2023-12-28 | XR_ITS ---
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 RESULT: Lines, tubes, and devices: Cholecystectomy clips. Uncomplicated appearing screw and plate fixation o f the sternum. Coronary artery stent. Lungs and pleura: Emphysematous/senescent change. Minimal bibasilar atelectasis/scar. Right upper lo be granuloma. Cardiomediastinal silhouette: Stable. Other: No acute osseous or upper abdominal finding. IMPRESSION: No acute cardiopulmonary process. Reviewed, dictated and finalized at location [facility]. R SUBSTRATE TESTER
--- NOTE | 2023-12-28 16:02 | ED_ITS ---
HPI - General Adult General Chief complaint: Upper Respiratory Infection Stated complaint: coughing / congestion Time Seen by Provider: 12/28/23 16:02 Source: patient Mode of arrival: ambulatory Limitations: no limitations History of Present Illness HPI narrative: 68-year-old male patient presents to the [facility] with complaints of a cough the past 2-3 days. Patient denies production with the cough. Denies fevers, body aches or chills. Patient states he has had a bit of congestion but does feel fatigue and weakness. Denies any ear pain or sore throat. Denies any current chest pain but states at times does have chest pain states he has some kind of plate in the chest that can cause pain at times. Patient denies any abdominal pain, nausea, vomiting or diarrhea. Patient states he start taking some Delsym for the cough last night. Related Data Home Medications Medication Instructions Recorded Confirmed aspirin 81 mg tablet,delayed 81 mg PO DAILY 02/01/19 12/28/23 release (Sami Low Dose Aspirin) vit C 250 mg-vit E 200 unit-zinc 1 tablet PO Q12H 02/01/19 12/28/23 12.5 mg-copper 1 [id number] tablet (ICaps AREDS2 (copper citrate)) blood sugar diagnostic (OneTouch 05/14/19 12/23/23 Ultra Blue Test Strip) carvedilol 25 mg tablet (Coreg) 25 mg PO Q12H 09/06/19 12/28/23 insulin glargine 100 unit/mL (3 30 unit subcut Q12H 10/12/21 12/28/23 mL) subcutaneous pen (Basaglar KwikPen U-100 Insulin) lisinopril 20 mg tablet 20 mg PO BID 08/12/22 12/28/23 cholecalciferol (vitamin D3) 125 125 mcg PO DAILY 10/01/22 12/28/23 mcg (5,000 unit) tablet (Vitamin D3) folic acid 0.8 mg-vit B comp with 1 tablet PO DAILY 10/01/22 12/28/23 [id number]-hfqyufv D3 2,000 unit tablet (Dialyvite 800-Ultra D) furosemide 80 mg tablet 160 mg PO BID 10/01/22 12/28/23 insulin aspart U-100 100 unit/mL See Rx Instructions .Route .COMPLEX 10/01/22 12/28/23 (3 mL) subcutaneous pen (Novolog FlexPen U-100 Insulin aspart) diphenhydramine 25 2 tablet PO HS 03/12/23 12/28/23 mg-acetaminophen 500 mg tablet (Tylenol PM Extra Strength) atorvastatin 80 mg tablet 80 mg PO HS 09/02/23 12/28/23 diltiazem HCl 120 mg 120 mg PO Q12H 09/02/23 12/28/23 capsule,extended release 12 hr finasteride 5 mg tablet 5 mg PO HS 09/02/23 12/28/23 levothyroxine 112 mcg tablet 112 mcg PO DAILY 09/02/23 12/28/23 clonidine 0.2 mg/24 hr weekly 1 patch transdermal WEEKLY 09/25/23 12/28/23 transdermal patch hydralazine 10 mg tablet 20 mg PO TID 10/15/23 12/28/23 tadalafil 5 mg tablet 5 mg DAILY 11/15/23 12/28/23 Allergies Allergy/AdvReac Type Severity Reaction Status Date / Time No Known Allergies Allergy Verified 12/28/23 16:06 Review of Systems Review of Systems: CONSTITUTIONAL: Denies fever, chills, or sweats. EYES: Denies visual changes, redness, or discharge. ENT: Positive rhinorrhea, congestion, denies sore throat, denies otalgia. CARDIOVASCULAR: positive intermittent chest pain, denies palpitations, or edema. RESPIRATORY: positive cough anddyspnea. GASTROINTESTINAL: Denies abdominal pain, nausea, vomiting, or diarrhea. GENITOURINARY: Denies dysuria or hematuria. SKIN: Denies rash or itching. MUSCULOSKELETAL: Denies back pain, joint pain, or myalgia. NEUROLOGIC: Denies headache, numbness, or weakness. PSYCHIATRIC: Denies anxiety or depression. [facility] Past Medical History Medical History Anemia Arthritis Benign prostatic hyperplasia C. difficile colitis Chronic diastolic (congestive) heart failure Cirrhosis Clostridium difficile infection Coronary artery disease Depression with anxiety Dyslipidemia End-stage renal disease on peritoneal dialysis Gastroesophageal reflux disease Hypertension Hypothyroidism Insulin dependent type 2 diabetes mellitus Kidney stones Obstructive sleep apnea Pituitary tumor Status post resection. Renal cell carcinoma Status post partial left nephrectomy. Surgical History Surgical History History of arthroplasty of right knee History of cardiac catheterization (08/2020) Stent x2 to the LAD. History of cataract extraction History of cholecystectomy (2007) History of colonoscopy with polypectomy History of coronary artery stent placement History of inguinal hernia repair History of open reduction and internal fixation (ORIF) procedure (11/2022) Screw fixation of sternal fracture. History of partial nephrectomy Partial left nephrectomy for renal cell carcinoma. History of pituitary surgery (11/2021) History of umbilical hernia repair Family History Family History Mother Hypertension Cerebrovascular accident Aneurysm Father Family history of malignant neoplasm Carcinoma of colon Social History Social History Social History: Surrogate medical decision maker: Harriet Carl, spouse. Code status: Full code. Smoking status: Never smoker Second hand tobacco smoke exposure: No Alcohol intake: never Alcohol use details: rare, holidays Substance use: never Substance use type: does not use Do You Feel Safe in your Home?: Yes Lack of Transportation: No Lack of Food: Never True Current Housing: I Have Housing Concerned About Future Housing: No Difficulty Paying Gas/Electric Bills: No Difficulty Paying for Meds: No Currently Unemployed: YES Education: Trade/Vocational Certificate Difficulty w/ Childcare or Family Care: No Living arrangements: with family Additional living arrangements comments: Lives with spouse in [place]. Occupation/Education: retired Additional occupation/education comments: [employer]. Gender identity (if verbalized by the patient): Male Sexual Orientation (if Verbalized by the Patient): Straight or Heterosexual Spiritual care concerns: No Agree to blood products: Yes Comments At the time of my signature I agree with nursing past medical history, surgical, social, and family history. There is no relevant family history pertinent to the presenting complaint. Exam Narrative: GENERAL: Well-appearing, well-nourished, and in no acute distress. HEAD: Normocephalic, atraumatic. EYES: PERRLA and EOMI. ENT: Nares with erythema edema noted bilaterally, no rhinorrhea or epistaxis. Mucous membranes moist. posterior pharynx appears dry but no erythema. No exudates or lesions present. Bilateral TMs are clear no erythema foreign bodies the canal. NECK: Supple. No lymphadenopathy CHEST: Slight crackles noted to the left lower lobe on auscultation. No respiratory distress. patient able talk clear complete sentences. HEART: Regular rate and rhythm. No murmur heard. Normal peripheral pulses. ABDOMEN: Soft, nontender, nondistended, normal active bowel sounds. EXTREMITIES: Normal range of motion. No edema. SKIN: Warm, dry, no rash. NEURO: No focal deficits. Alert and oriented x3. Course Course Level of Care: Express Care Visit Reevaluation(s) Reevaluation #1: re-evaluated patient notified him that the swabs today were negative, and his x-ray was negative as well as his EKG looks unchanged from his last 1. Discussed with patient to continue to monitor any possible worsening swelling lower extremities for sometimes coughing can be related to worsening congestive heart failure. Discussed with patient we will go ahead and discharge him home with some Tessalon Perles to help with the symptoms most likely it is viral and will need to run its course. Patient verbalized understanding denies any other questions or concerns at this time. Date: 12/28/23 Time: 17:13 Vital Signs Vital signs: Vital Signs Temperature 36.9 C 12/28/23 16:06 Pulse Rate 74 12/28/23 16:06 Respiratory Rate 18 12/28/23 16:06 Blood Pressure 112/53 L 12/28/23 16:06 Pulse Oximetry 96 12/28/23 16:06 Oxygen Delivery Room Air 12/28/23 16:06 Temperature 36.9 C 12/28/23 16:07 Pulse Rate 74 12/28/23 16:07 Respiratory Rate 18 12/28/23 16:07 Blood Pressure 112/53 L 12/28/23 16:07 Pulse Oximetry 96 12/28/23 16:07 Oxygen Delivery Room Air 12/28/23 16:07 Vital signs reviewed. Medical Decision Making MDM Narrative Medical decision making narrative: Plan care for patient is to test him today for flu and COVID. Also check an EKG and do a chest x-ray Differential Diagnosis Differential Diagnosis: Differential diagnosis: Allergic rhinitis, chronic sinusitis, tonsillitis, acute sinusitis, infectious mononucleosis, seasonal influenza, pertussis, diphtheria, meningococcal disease, viral syndrome, viral bronchitis, RSV, COVID- 19 Vital Signs Vital Signs: Vital Signs Temperature 36.9 C 12/28/23 16:06 Pulse Rate 74 12/28/23 16:06 Respiratory Rate 18 12/28/23 16:06 Blood Pressure 112/53 L 12/28/23 16:06 Pulse Oximetry 96 12/28/23 16:06 Oxygen Delivery Room Air 12/28/23 16:06 Temperature 36.9 C 12/28/23 16:07 Pulse Rate 74 12/28/23 16:07 Respiratory Rate 18 12/28/23 16:07 Blood Pressure 112/53 L 12/28/23 16:07 Pulse Oximetry 96 12/28/23 16:07 Oxygen Delivery Room Air 12/28/23 16:07 Lab Data Labs: Lab Results 12/28/23 Range/Units 16:40 POC Influenza A Ag Negative (Negative) POC Influenza B Ag Negative (Negative) POC SARS CoV-2 Ag Negative (Negative) Imaging Data Radiologist's impression: [place] [address] XRay Report Signed Patient: Kendall Carl : 1955 MR#: [id number] Age: 68 Acct:[id number] Loc: [facility] ADM Date: 12/28/23Attending Dr: Ordering Physician: Antonia Schmidt REINSPECTOR Date of Service: 12/28/23 Procedure(s): XR chest 2V Accession Number(s): [id number] cc: Jeff Strickland MD; Antonia Schmidt REINSPECTOR~ EXAMINATION: XR chest 2V Exam Date/Time: 12/28/2023 16:15 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 RESULT: Lines, tubes, and devices: Cholecystectomy clips. Uncomplicated appearing screw and plate fixation of the sternum. Coronary artery stent. Lungs and pleura: Emphysematous/senescent change. Minimal bibasilar atelectasis/scar. Right upper lobe granuloma. Cardiomediastinal silhouette: Stable. Other: No acute osseous or upper abdominal finding. IMPRESSION: No acute cardiopulmonary process. Reviewed, dictated and finalized at location [facility]. CULTURAL RESEARCHER Dictated By: Benji Wick MD 12/28/23 1705 Signed By: <Electronically signed by Benji Wick MD in [place]> ECG Data EKG #1: Interpretation: sinus rhythm. Low QRS voltage in precordial leads, QRS deflection a less than 1.0 mV in chest leads. Pattern consistent with pulmonary disease. Left anterior fascicular block, QRS axis +center equal to -45, QR in I, RS, in II. septal myocardial infarction, 40+ MS Q-wave in V1/ V2, probably old. Her inferior myocardial infarction, 40+ MS Q-wave and/or ST/T abnormality in II/aVF. probably old. Abnormal ECG. Vent rate: 68 [place] interval: 184 QRS duration: 92 QT/QTC: 410/427 P-R- T axis: 94, -49, 28 Critical Care Time Critical Care Time Critical Care Time: No Discharge Plan Discharge Clinical Impression: Viral URI with cough Patient Disposition: Home, Self-Care Condition: Stable Instructions: Antibiotic Form, Acute Cough (ED) Additional Instructions: Viral illness may last between 7-12days; antibiotic is NOT recommended at this time. Recommend antihistamine such as Benadryl at night time and Cl aritin/Zyrtec/Lady during the day Cough syrup may cause drowsiness; avoid driving or take it at night time. Also, recommend symptomatic treatment includes: rest, fluids, and increase humidity of the air at home. Recommend Acetaminophen or nonsteroidal anti-inflammatory agents (NSAIDs) as directed in the bottle to reduce fever and/pain/headache. Avoid smoking/second-hand smoke. Limit visits to areas with large crowds. Please schedule a follow-up visit with your personal physician for further evaluation and treatment within 3-5days. Including recheck and discussion of your blood pressure. If your symptoms persist, change or worsen significantly before you can contact your personal physician then please, without delay, go to the emergency department for further evaluation. Prescriptions: New benzonatate 200 mg capsule 200 mg PO TID PRN (Reason: cough) 10 Days Qty: 30 0RF No Action tadalafil 5 mg tablet 5 mg DAILY aspirin [Sami Low Dose Aspirin] 81 mg Tablet,Delayed Release (Dr/Ec) 81 mg PO DAILY ICaps AREDS2 (copper citrate) 250 mg-200 unit -12.5 mg-1 mg Tablet 1 tablet PO Q12H fenofibrate nanocrystallized 145 mg tablet 145 mg PO DAILY Qty: 30 0RF carvedilol [Coreg] 25 mg tablet 25 mg PO Q12H (DME) pen needle, diabetic [BD Ultra-Fine Micro Pen Needle] 32 gauge x 1/4 needle See Rx Instructions .ROUTE .MEDSUPPLY Qty: 200 11RF Rx Instructions: inject five times daily insulin glargine [Basaglar KwikPen U-100 Insulin] 100 unit/mL (3 mL) insulin pen 30 unit subcut Q12H lisinopril 20 mg tablet 20 mg PO BID (DME) OneTouch Ultra Blue Test Strip Strip See Rx Instructions .ROUTE .MEDSUPPLY Rx Instructions: Test blood sugar three times per day. clonidine 0.2 mg/24 hr patch weekly 1 patch transdermal WEEKLY insulin aspart U-100 [Novolog FlexPen U-100 Insulin] 100 unit/mL (3 mL) insulin pen See Rx Instructions .ROUTE .COMPLEX Rx Instructions: sliding scale cholecalciferol (vitamin D3) [Vitamin D3] 125 mcg (5,000 unit) Tablet 125 mcg PO DAILY Dialyvite 800-Ultra D 0.8-2,000 mg-unit Tablet 1 tablet PO DAILY furosemide 80 mg Tablet 160 mg PO BID diphenhydramine-acetaminophen [Tylenol PM Extra Strength] 25-500 mg Tablet 2 tablet PO HS diltiazem HCl 120 mg capsule,extended release 12 hr 120 mg PO Q12H atorvastatin 80 mg tablet 80 mg PO HS finasteride 5 mg tablet 5 mg PO HS levothyroxine 112 mcg tablet 112 mcg PO DAILY (DME) blood-glucose meter [AltaVitasTouch Ultra2 Meter] Misc See Rx Instructions .ROUTE .MEDSUPPLY Qty: 1 0RF Rx Instructions: As directed (DME) lancets [AltaVitasTouch Delica Lancets] 30 gauge misc See Rx Instructions .ROUTE .MEDSUPPLY Qty: 100 3RF Rx Instructions: As directed hydralazine 10 mg tablet 20 mg PO TID pantoprazole [Protonix] 40 mg tablet,delayed release (DR/EC) 40 mg PO BID Qty: 180 0RF lorazepam [Ativan] 0.5 mg tablet 0.5 mg PO HS PRN (Reason: Anxiety) Qty: 30 0RF gabapentin 300 mg capsule 300 mg PO TID Qty: 90 5RF Follow-up/Referrals: Jeff Strickland MD [Primary Care Provider] - Time of Disposition: 17:11
[2023-12-28 16:06] VITALS: BP 112/53; PULSE 74; RESP 18; TEMP 36.9; O2SAT 96
[2023-12-28 16:07] VITALS: BP 112/53; PULSE 74; RESP 18; TEMP 36.9; O2SAT 96
--- NOTE | 2023-12-28 16:20 | ECG_ITS ---
Test Date: 2023-12-28 16:32:32 Measurements Intervals [place] Rate: 68 P: 94 [place]: 184 QRS: -49 QRSD: 92 T: 28 QT: 410 QTc: 438 Interpretive Statements SINUS RHYTHM LEFT AXIS DEVIATION LOW QRS VOLTAGE IN PRECORDIAL LEADS PATTERN CONSISTENT WITH PULMONARY DISEASE CANNOT R/O SEPTAL INFARCT, AGE INDETERMINATE CONSIDER INFERIOR INFARCT, AGE INDETERMINATE BORDERLINE T WAVE ABNORMALITY- HIGH LATERAL LEADS BASELINE ARTIFACT- I, II, III, AVR, AVL, AVF, V1-V6 ABNORMAL ECG Compared to ECG 09/24/2023 22:59:47 Low QRS voltage now present Electronically Signed On 12-29-2023 06:41:11 [employer]OWROOM SALESPERSON by Dilan Preciado D.O.
[2023-12-28 16:42] LABS: EDCOVIDSCREEN Negative (Negative); EDINFLUASCREEN Negative (Negative); EDINFLUBSCREEN Negative (Negative)
== END 2023-12-28 17:18 | disposition home or self-care (01) ==
PROVIDERS: Emergency Provider Nurse Practitioner Family; PCP Family Medicine
DX: J06.9 Acute upper respiratory infection, unspecified (principal); R05.9 Cough, unspecified; Z20.822 Contact with and (suspected) exposure to COVID-19; R94.31 Abnormal electrocardiogram [ECG] [EKG]; I13.2 Hypertensive heart and chronic kidney disease with heart failure and with stage 5 chronic kidney disease, or end stage renal disease; E11.22 Type 2 diabetes mellitus with diabetic chronic kidney disease; N18.6 End stage renal disease; I50.32 Chronic diastolic (congestive) heart failure; Z99.2 Dependence on renal dialysis; Z79.4 Long term (current) use of insulin; M19.90 Unspecified osteoarthritis, unspecified site; N40.0 Benign prostatic hyperplasia without lower urinary tract symptoms; K74.60 Unspecified cirrhosis of liver; I25.10 Atherosclerotic heart disease of native coronary artery without angina pectoris; E78.5 Hyperlipidemia, unspecified; K21.9 Gastro-esophageal reflux disease without esophagitis; E03.9 Hypothyroidism, unspecified; Z85.528 Personal history of other malignant neoplasm of kidney; Z95.5 Presence of coronary angioplasty implant and graft; Z90.5 Acquired absence of kidney; Z96.651 Presence of right artificial knee joint; Z79.82 Long term (current) use of aspirin
CPT/HCPCS: 71046; 87426; 87804; 93005; 99213; G0463

== ENCOUNTER 2024-01-04 12:29 | Outpatient (CLI) | payer MEDICARE, SELFPAY ==
--- NOTE | ~2024-01-04 | MR_ITS ---
MRI of the lumbar spine Clinical History: Back pain Technique: Axial T2-weighted images, and sagittal T1-weighted, T2-weighted, and T2 fat-sat images wer e acquired. Findings: No acute fracture or subluxation seen in the lumbar spine. Vertebral bodies maintain normal height and line. No bone marrow signal abnormality seen. At L1-L2, there is mild degenerative disc narrowing. No disc bulge or herniation. There is mild facet arthropathy. No central canal stenosis or left neural foraminal narrowing. There is moderate right n eural foraminal narrowing. At L2-L3, there is minimal disc bulge with moderate facet arthropathy. No central canal stenosis or d efinite neural foraminal narrowing. At L3-L4, there is mild disc bulge with mild to moderate facet arthropathy. No central canal stenosis or definite neural foraminal narrowing. At L4-L5, there is minimal disc bulge with mild to moderate facet arthropathy. No central canal steno sis or neural foraminal narrowing. At L5-S1, there is minimal disc bulge with moderate facet arthropathy. No central canal stenosis. The re is mild to moderate left neural foraminal narrowing. Right neural foramen preserved. Paravertebral soft tissues are unremarkable. Impression: Mild/moderate degenerative spondylosis overall, as detailed above. Reviewed, dictated and finalized at [facility]. T WOMAN Impression: Mild/moderate degenerative spondylosis overall, as detailed above.
== END 2024-01-04 12:30 | disposition home or self-care (01) ==
LOC: ANHIMG 12:30
PROVIDERS: PCP Family Medicine; Visit Provider Family Medicine
DX: R29.818 Other symptoms and signs involving the nervous system (principal); M47.896 Other spondylosis, lumbar region
CPT/HCPCS: 72148

== ENCOUNTER 2024-01-22 11:37 | Outpatient (CLI) | payer MEDICARE, SELFPAY ==
--- NOTE | ~2024-01-22 | XR_ITS ---
Left Knee Technique: AP, lateral, and sunrise views were obtained. Clinical History: Pain Findings: No fracture or dislocation is seen. Osseous alignment is anatomic. Mild tricompartmental de generative change present. Vascular calcifications are present. No joint effusion is seen. Impression: Mild tricompartmental degenerative change. Reviewed, dictated and finalized at [facility]. RT/EXPORT ANALYST Impression: Mild tricompartmental degenerative change.
== END 2024-01-22 11:38 | disposition home or self-care (01) ==
PROVIDERS: PCP Family Medicine; Visit Provider Physician Assistant Medical
DX: M17.12 Unilateral primary osteoarthritis, left knee (principal); W19.XXXA Unspecified fall, initial encounter
CPT/HCPCS: 73562

== ENCOUNTER 2024-02-02 11:37 | Emergency (ER) | payer MEDICARE, SELFPAY ==
--- NOTE | ~2024-02-02 | US_ITS ---
LEFT LOWER EXTREMITY VENOUS ULTRASOUND Ordering provider: Jonnathan Flores MD History: . pain/swelling . Comparison: None. FINDINGS: --COMMON FEMORAL: Patent and free of thrombus. Normal compressibility, phasic flow and augmentation. --PROXIMAL SUPERFICIAL FEMORAL: Patent and free of thrombus. Normal compressibility, phasic flow and augmentation. --DISTAL SUPERFICIAL FEMORAL: Patent and free of thrombus. Normal compressibility, phasic flow and au gmentation. --POPLITEAL: Patent and free of thrombus. Normal compressibility, phasic flow and augmentation. --POSTERIOR TIBIAL: Patent and free of thrombus. Normal compressibility, phasic flow and augmentation . IMPRESSION: Negative left lower extremity venous US. No deep vein thrombosis. Reviewed, dictated and finalized at location A. 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
[2024-02-02 11:40] VITALS: BP 133/55; PULSE 66; RESP 16; TEMP 37.1; O2SAT 100
--- NOTE | 2024-02-02 13:56 | ED_ITS ---
HPI - Extremity Injury (Lower) General Chief Complaint: Extremity Injury, Lower Stated Complaint: left knee pain Time Seen by Provider: 02/02/24 12:05 History of Present Illness HPI Narrative: Patient is a 69-year-old male who presents ER with left knee pain. Ongoing for last several weeks. He was walking down a ramp point felt a pop in his medial left knee. He had an x-ray at this hospital at showed arthritis and no fracture. He has continued to have discomfort with walking. Increased swelling to the left leg. He is having difficulty getting in to see a doctor until the new year. No improvement with hxqm-wpg-egpptql pain medication. He bought a knee brace yesterday but thinks it may be too tight. Related Data Home Medications ?Medication ?Instructions ?Recorded ?Confirmed ?Last Taken ?Type aspirin 81 mg tablet,delayed 81 mg PO DAILY 02/01/19 12/28/23 09/02/23 08:00 History release (Sami Low Dose Aspirin) vit C 250 mg-vit E 200 unit-zinc 1 tablet PO Q12H 02/01/19 12/28/23 09/02/23 08:00 History 12.5 mg-copper 1 kk-mil-efvwds tablet (ICaps AREDS2 (copper citrate)) blood sugar diagnostic (OneTouch 05/14/19 12/28/23 Unknown History Ultra Blue Test Strip) carvedilol 25 mg tablet (Coreg) 25 mg PO Q12H 09/06/19 12/28/23 09/02/23 08:00 History insulin glargine 100 unit/mL (3 30 unit subcut Q12H 10/12/21 12/28/23 09/02/23 08:00 History mL) subcutaneous pen (Basaglar KwikPen U-100 Insulin) lisinopril 20 mg tablet 20 mg PO BID 08/12/22 12/28/23 09/02/23 08:00 History cholecalciferol (vitamin D3) 125 125 mcg PO DAILY 10/01/22 12/28/23 09/01/23 History mcg (5,000 unit) tablet (Vitamin D3) folic acid 0.8 mg-vit B comp with 1 tablet PO DAILY 10/01/22 12/28/23 09/01/23 13:00 History D-rgjw-hxfhmqy D3 2,000 unit tablet (Dialyvite 800-Ultra D) furosemide 80 mg tablet 160 mg PO BID 10/01/22 12/28/23 09/24/23 History insulin aspart U-100 100 unit/mL See Rx Instructions .Route .COMPLEX 10/01/22 12/28/23 09/02/23 08:00 History (3 mL) subcutaneous pen (Novolog FlexPen U-100 Insulin aspart) diphenhydramine 25 2 tablet PO HS 03/12/23 12/28/23 09/01/23 21:00 History mg-acetaminophen 500 mg tablet (Tylenol PM Extra Strength) atorvastatin 80 mg tablet 80 mg PO HS 09/02/23 12/28/23 09/01/23 21:00 History diltiazem HCl 120 mg 120 mg PO Q12H 09/02/23 12/28/23 09/02/23 08:00 History capsule,extended release 12 hr finasteride 5 mg tablet 5 mg PO HS 09/02/23 12/28/23 09/01/23 21:00 History levothyroxine 112 mcg tablet 112 mcg PO DAILY 09/02/23 12/28/23 09/02/23 08:00 History clonidine 0.2 mg/24 hr weekly 1 patch transdermal WEEKLY 09/25/23 12/28/23 09/19/23 History transdermal patch hydralazine 10 mg tablet 20 mg PO TID 10/15/23 12/28/23 Unknown History tadalafil 5 mg tablet 5 mg DAILY 11/15/23 12/28/23 Unknown History Allergies Allergy/AdvReac Type Severity Reaction Status Date / Time No Known Allergies Allergy Verified 02/02/24 11:38 Review of Systems Review of Systems: All systems reviewed & are unremarkable except as noted in HPI and below Constitutional: Constitutional: Reports no additional constitutional complaints Cardiovascular: Cardiovascular: Reports no additional cardiovascular complaints Respiratory: Respiratory: Reports no additional respiratory complaints Musculoskeletal: Musculoskeletal: Denies back pain, Reports arthralgias and Denies joint swelling PMFSH Past Medical History Medical History Anemia Arthritis Benign prostatic hyperplasia C. difficile colitis Chronic diastolic (congestive) heart failure Cirrhosis Clostridium difficile infection Coronary artery disease Depression with anxiety Dyslipidemia End-stage renal disease on peritoneal dialysis Gastroesophageal reflux disease Hypertension Hypothyroidism Insulin dependent type 2 diabetes mellitus Kidney stones Obstructive sleep apnea Pituitary tumor Status post resection. Renal cell carcinoma Status post partial left nephrectomy. Surgical History Surgical History History of arthroplasty of right knee History of cardiac catheterization (08/2020) Stent x2 to the LAD. History of cataract extraction History of cholecystectomy (2007) History of colonoscopy with polypectomy History of coronary artery stent placement History of inguinal hernia repair History of open reduction and internal fixation (ORIF) procedure (11/2022) Screw fixation of sternal fracture. History of partial nephrectomy Partial left nephrectomy for renal cell carcinoma. History of pituitary surgery (11/2021) History of umbilical hernia repair Family History Family History Mother Hypertension Cerebrovascular accident Aneurysm Father Family history of malignant neoplasm Carcinoma of colon Social History Social History Social History: Surrogate medical decision maker: Harriet Carl, spouse. Code status: Full code. Smoking status: Never smoker Second hand tobacco smoke exposure: No Alcohol intake: never Alcohol use details: rare, holidays Substance use: never Substance use type: does not use Do You Feel Safe in your Home?: Yes Lack of Transportation: No Lack of Food: Never True Current Housing: I Have Housing Concerned About Future Housing: No Difficulty Paying Gas/Electric Bills: No Difficulty Paying for Meds: No Currently Unemployed: YES Education: Trade/Vocational Certificate Difficulty w/ Childcare or Family Care: No Living arrangements: with family Additional living arrangements comments: Lives with spouse in [place]. Occupation/Education: retired Additional occupation/education comments: [employer]. Gender identity (if verbalized by the patient): Male Sexual Orientation (if Verbalized by the Patient): Straight or Heterosexual Spiritual care concerns: No Agree to blood products: Yes Exam Narrative: GENERAL: Well-appearing, well-nourished, and in no acute distress. HEAD: Normocephalic, atraumatic. EXTREMITIES: Normal range of motion. 1+ edema. No point tenderness along the joint line of the left knee. SKIN: Warm, dry, no rash. NEURO: Alert and oriented x3. PSYCH: Normal mood and affect. Course Course Emergency Course: No DVT. Encouraged him to continue wearing knee brace. Likely needs outpatient MRI that can be ordered by PCP or Ortho. Vital Signs Vital signs: Vital Signs Temperature 98.8 F 02/02/24 11:40 Pulse Rate 66 02/02/24 11:40 Respiratory Rate 16 02/02/24 11:40 Blood Pressure 133/55 L 02/02/24 11:40 Pulse Oximetry 100 02/02/24 11:40 Oxygen Delivery Room Air 02/02/24 11:40 Temperature 98.8 F 02/02/24 11:40 Pulse Rate 66 02/02/24 11:40 Respiratory Rate 16 02/02/24 11:40 Blood Pressure 133/55 L 02/02/24 11:40 Pulse Oximetry 100 02/02/24 11:40 Oxygen Delivery Room Air 02/02/24 11:40 MDM - Extremity Injury (Lower) Imaging Data Radiologist's impression: ITS Impressions Venous Doppler Study 02/02/24 13:30 IMPRESSION: Negative left lower extremity venous US. No deep vein thrombosis. Discharge Plan Discharge Clinical Impression: Knee pain Patient Disposition: Home, Self-Care Condition: Stable Instructions: Knee Pain (ED) Additional Instructions: Your previous x-ray showed arthritis of your knee. Your persistent pain may be related to inflammation of the arthritiss, or from a possible tear of the meniscus. Your PCP should order urine outpatient MRI for further evaluation. He may also need physical therapy. Take Tylenol as needed for pain. Patient Language: Tunisian Prescriptions: No Action tadalafil 5 mg tablet 5 mg DAILY benzonatate 200 mg capsule 200 mg PO TID PRN (Reason: cough) 10 Days Qty: 30 0RF aspirin [Sami Low Dose Aspirin] 81 mg Tablet,Delayed Release (Dr/Ec) 81 mg PO DAILY ICaps AREDS2 (copper citrate) 250 mg-200 unit -12.5 mg-1 mg Tablet 1 tablet PO Q12H fenofibrate nanocrystallized 145 mg tablet 145 mg PO DAILY Qty: 30 0RF carvedilol [Coreg] 25 mg tablet 25 mg PO Q12H (DME) pen needle, diabetic [BD Ultra-Fine Micro Pen Needle] 32 gauge x 1/4 needle See Rx Instructions .ROUTE .MEDSUPPLY Qty: 200 11RF Rx Instructions: inject five times daily insulin glargine [Basaglar KwikPen U-100 Insulin] 100 unit/mL (3 mL) insulin pen 30 unit subcut Q12H lisinopril 20 mg tablet 20 mg PO BID (DME) OneTouch Ultra Blue Test Strip Strip See Rx Instructions .ROUTE .MEDSUPPLY Rx Instructions: Test blood sugar three times per day. clonidine 0.2 mg/24 hr patch weekly 1 patch transdermal WEEKLY insulin aspart U-100 [Novolog FlexPen U-100 Insulin] 100 unit/mL (3 mL) insulin pen See Rx Instructions .ROUTE .COMPLEX Rx Instructions: sliding scale cholecalciferol (vitamin D3) [Vitamin D3] 125 mcg (5,000 unit) Tablet 125 mcg PO DAILY Dialyvite 800-Ultra D 0.8-2,000 mg-unit Tablet 1 tablet PO DAILY furosemide 80 mg Tablet 160 mg PO BID diphenhydramine-acetaminophen [Tylenol PM Extra Strength] 25-500 mg Tablet 2 tablet PO HS diltiazem HCl 120 mg capsule,extended release 12 hr 120 mg PO Q12H atorvastatin 80 mg tablet 80 mg PO HS finasteride 5 mg tablet 5 mg PO HS levothyroxine 112 mcg tablet 112 mcg PO DAILY (DME) blood-glucose meter [Home-AccountTouch Ultra2 Meter] Misc See Rx Instructions .ROUTE .MEDSUPPLY Qty: 1 0RF Rx Instructions: As directed (DME) lancets [OneTouch Delica Lancets] 30 [facility] See Rx Instructions .ROUTE .MEDSUPPLY Qty: 100 3RF Rx Instructions: As directed hydralazine 10 mg tablet 20 mg PO TID pantoprazole [Protonix] 40 mg tablet,delayed release (DR/EC) 40 mg PO BID Qty: 180 0RF lorazepam [Ativan] 0.5 mg tablet 0.5 mg PO HS PRN (Reason: Anxiety) Qty: 30 0RF gabapentin 300 mg capsule 300 mg PO TID Qty: 90 5RF Follow-up/Referrals: Jeff Strickland MD [Primary Care Provider] - 1 Week
== END 2024-02-02 14:28 | disposition home or self-care (01) ==
PROVIDERS: Emergency Provider Emergency Medicine; PCP Family Medicine
DX: M25.562 Pain in left knee (principal); R22.42 Localized swelling, mass and lump, left lower limb; I13.2 Hypertensive heart and chronic kidney disease with heart failure and with stage 5 chronic kidney disease, or end stage renal disease; E11.22 Type 2 diabetes mellitus with diabetic chronic kidney disease; N18.6 End stage renal disease; Z99.2 Dependence on renal dialysis; I50.32 Chronic diastolic (congestive) heart failure; I25.10 Atherosclerotic heart disease of native coronary artery without angina pectoris; E78.5 Hyperlipidemia, unspecified; N40.0 Benign prostatic hyperplasia without lower urinary tract symptoms; K74.60 Unspecified cirrhosis of liver; G47.33 Obstructive sleep apnea (adult) (pediatric); M19.90 Unspecified osteoarthritis, unspecified site; F41.8 Other specified anxiety disorders; Z95.5 Presence of coronary angioplasty implant and graft; Z96.651 Presence of right artificial knee joint; Z86.0100 Personal history of colon polyps, unspecified; Z98.49 Cataract extraction status, unspecified eye; Z90.49 Acquired absence of other specified parts of digestive tract; Z90.5 Acquired absence of kidney; Z79.4 Long term (current) use of insulin; Z79.899 Other long term (current) drug therapy; Z79.82 Long term (current) use of aspirin
CPT/HCPCS: 93971; 99284

== ENCOUNTER 2024-02-13 12:33 | Emergency (ER) | payer MEDICARE, SELFPAY ==
[2024-02-13 12:47] VITALS: BP 117/53; PULSE 72; RESP 20; TEMP 36.3; O2SAT 97
--- NOTE | 2024-02-13 13:04 | PC.NURSE ---
Pt came out to talk to staff. States PMD returned call and ordered outpatient labs, testing and Chest Xray. Decided to leave before being seen and have outpatient testing done.
== END 2024-02-13 13:04 | disposition left against medical advice (07) ==
PROVIDERS: Emergency Provider Nurse Practitioner; PCP Family Medicine
DX: Z53.21 Procedure and treatment not carried out due to patient leaving prior to being seen by health care provider (principal)
CPT/HCPCS: 99199

== ENCOUNTER 2024-02-13 13:38 | Outpatient (CLI) | payer MEDICARE, SELFPAY ==
--- NOTE | ~2024-02-13 | XR_ITS ---
EXAMINATION: XR chest 2V DATE: 02/13/2024 14:13 INDICATION: Shortness of breath. Chest pain. TECHNIQUE: PA and lateral views of the chest were obtained. COMPARISON: Chest radiograph dated 12/28/23 FINDINGS: The lungs are clear with no focal airspace opacities, pulmonary edema, pleural effusion or pneumothor ax. Size is normal. Change of prior median sternotomy with malleable plate and screw fixation includi ng caudally along both sides of the sternum. There is prominent free intraperitoneal gas below the di aphragm which may be related to peritoneal dialysis with peritoneal dialysis catheter evident on CT f rom 09/18/2023. There are bridging osteophytes at multiple levels consistent with diffuse idiopathic sk eletal hyperostosis (DISH). IMPRESSION: 1. No acute cardiopulmonary disease. 2. Prominent free intraperitoneal gas below the diaphragm which may be related to peritoneal dialysis . Reviewed, dictated and finalized at location B. O EDITOR IMPRESSION: 1. No acute cardiopulmonary disease. 2. Prominent free intraperitoneal gas below the diaphragm which may be related to peritoneal dialysis.
[2024-02-13 14:33] LABS: Influenza A QL RT-PCR Negative (Negative); Influenza B QL RT-PCR Negative (Negative); RSV RNA, RT-PCR Negative (Negative); SARS-CoV-2 RNA PCR Negative (Negative)
== END 2024-02-13 13:39 | disposition home or self-care (01) ==
PROVIDERS: PCP Family Medicine; Visit Provider Physician Assistant
DX: J02.9 Acute pharyngitis, unspecified (principal); R53.81 Other malaise; R53.83 Other fatigue; R06.02 Shortness of breath
CPT/HCPCS: 71046; 87637

== ENCOUNTER 2024-02-14 14:43 | Emergency (ER) | payer MEDICARE, SELFPAY ==
[2024-02-14] VITALS (8 sets, daily range): BP systolic 134–148; BP diastolic 58–82; PULSE 60–66; RESP 13–18; TEMP 36.4; O2SAT 96–99
--- NOTE | ~2024-02-14 | CT_ITS ---
CT diagnostic chest wo [facility] Ordering provider: Speedy Hunter MD History: 69 years Male with . Burning Left sided chest pain . Comparison: September 18, 2023 Technique: CT chest without IV contrast. FINDINGS: VISUALIZED THORACIC INLET: Normal. MEDIASTINUM: Aorta/coronary arteries: Mild atheromatous disease. Heart/other: The heart is not enlarged. Trace of pericardial effusion. Lymph nodes: No mediastinal or hilar adenopathy. Right paratracheal lymph node is seen measuring 2 cm . LUNGS: No pulmonary nodules or masses. No infiltrates or effusions. No pneumothorax. Dependent atelec tatic changes. VISUALIZED UPPER ABDOMEN: Ascites seen around the liver and spleen. Status post cholecystectomy. Righ t renal cysts. Hyperdense lesion in the left kidney which may be a mass. This measures 1.9 cm. Anothe r hypodensity seen in the left kidney left kidney measuring 2.3 cm. Upper pole density also seen bon suring 2.6 cm. Otherwise, the visualized upper abdomen is normal. MUSCULOSKELETAL: Soft tissues: The superficial soft tissues are normal. Bones: Age appropriate degenerative changes of the spine. Postoperative changes in the sternum. IMPRESSION: 1. No acute lung abnormality seen. Dependent atelectatic changes are seen. 2. A right paratracheal lymph node unchanged from previous examination 3. Trace of pericardial effusion. 4. Ascites. 5. 3 Soft tissue density is in the left kidney unchanged from previous examination. Reviewed, dictated and finalized at location A. ATOR MECHANIC APPRENTICE IMPRESSION: 1. No acute lung abnormality seen. Dependent atelectatic changes are seen. 2. A right paratracheal lymph node unchanged from previous examination 3. Trace of pericardial effusion. 4. Ascites. 5. 3 Soft tissue density is in the left kidney unchanged from previous examina tion.
--- NOTE | ~2024-02-14 | XR_ITS ---
XR chest 1V portable Ordering provider: Speedy Hunter MD History: 69 years Male with . L sided chest pain . Comparison: February 13, 2024 FINDINGS: MEDIASTINUM: The cardiac silhouette is slightly enlarged. Congestive desire. LUNGS: No effusions or pneumothorax. Bilateral interstitial thickening suggestive of pulmonary edema versus pneumonitis. OTHER: No free air under the diaphragm. Degenerative changes of the spine. Spinal stimulator is seen in the midthoracic area. IMPRESSION: Bilateral interstitial thickening suggestive of pneumonitis versus pulmonary edema. Clinical correlat ion advised. Reviewed, dictated and finalized at location A. LOGY TEACHER IMPRESSION: Bilateral interstitial thickening suggestive of pneumonitis versus pulmonary ed abdirizak. Clinical correlation advised.
--- NOTE | 2024-02-14 14:44 | ECG_ITS ---
Test Date: 2024-02-14 14:50:44 Measurements Intervals [place] Rate: 67 P: 5 NE: 158 QRS: -54 QRSD: 95 T: 31 QT: 448 QTc: 474 Interpretive Statements SINUS RHYTHM PATTERN CONSISTENT WITH PULMONARY DISEASE LEFT ANTERIOR FASCICULAR BLOCK [QRS AXIS <= -45, QR IN I, RS IN II] PROLONGED QT INTERVAL ABNORMAL ECG Electronically Signed On 02-15-2024 08:47:11 PRODUCT STEWARD by Lalit Platt M.D.
--- NOTE | 2024-02-14 17:00 | ECG_ITS ---
Test Date: 2024-02-14 17:20:31 Measurements Intervals [place] Rate: 62 P: -35 [place]: 135 QRS: -52 QRSD: 92 T: 6 QT: 421 QTc: 430 Interpretive Statements SINUS RHYTHM PATTERN CONSISTENT WITH PULMONARY DISEASE LEFT ANTERIOR FASCICULAR BLOCK [QRS AXIS <= -45, QR IN I, RS IN II] NONSPECIFIC T-WAVE ABNORMALITY ABNORMAL ECG Electronically Signed On 02-15-2024 08:54:22 SEAT COVERS TRIMMER by Lalit Platt M.D.
--- NOTE | 2024-02-14 17:08 | ED_ITS ---
HPI - General Adult General Chief complaint: Chest Pain Stated complaint: left chest pain, sore throat Time Seen by Provider: 02/14/24 16:35 History of Present Illness HPI narrative: this is a 69-year-old male history of chronic chest pain presenting ED with chief complaint of chest pain. Patient says that 3 days ago he developed a burning pain that comes up the left side of his chest and radiates to the right side. It is worse with deep breaths. He says he has never had pain like this before. He does have a history of chronic chest pain from a fractured sternum. Patient sees pain management. He also notes that he has had a sore throat for the last several days. No fevers chills productive cough shortness of breath abdominal pain or urinary symptoms. No nausea vomiting diarrhea Related Data Home Medications ?Medication ?Instructions ?Recorded ?Confirmed ?Last Taken ?Type aspirin 81 mg tablet,delayed 81 mg PO DAILY 02/01/19 02/09/24 09/02/23 08:00 History release (Sami Low Dose Aspirin) vit C 250 mg-vit E 200 unit-zinc 1 tablet PO Q12H 02/01/19 02/09/24 09/02/23 08:00 History 12.5 mg-copper 1 yv-htx-[place] tablet (ICaps AREDS2 (copper citrate)) blood sugar diagnostic (OneTouch 05/14/19 12/28/23 Unknown History Ultra Blue Test Strip) carvedilol 25 mg tablet (Coreg) 25 mg PO Q12H 09/06/19 02/09/24 09/02/23 08:00 History insulin glargine 100 unit/mL (3 30 unit subcut Q12H 10/12/21 02/09/24 09/02/23 08:00 History mL) subcutaneous pen (Basaglar KwikPen U-100 Insulin) lisinopril 20 mg tablet 20 mg PO BID 08/12/22 02/09/24 09/02/23 08:00 History cholecalciferol (vitamin D3) 125 125 mcg PO DAILY 10/01/22 12/28/23 09/01/23 History mcg (5,000 unit) tablet (Vitamin D3) folic acid 0.8 mg-vit B comp with 1 tablet PO DAILY 10/01/22 02/09/24 09/01/23 13:00 History B-squw-qabqjdy D3 2,000 unit tablet (Dialyvite 800-Ultra D) furosemide 80 mg tablet 160 mg PO BID 10/01/22 02/09/24 09/24/23 History insulin aspart U-100 100 unit/mL See Rx Instructions .Route .COMPLEX 10/01/22 02/09/24 09/02/23 08:00 History (3 mL) subcutaneous pen (Novolog FlexPen U-100 Insulin aspart) diphenhydramine 25 2 tablet PO HS 03/12/23 02/09/24 09/01/23 21:00 History mg-acetaminophen 500 mg tablet (Tylenol PM Extra Strength) atorvastatin 80 mg tablet 80 mg PO HS 09/02/23 02/09/24 09/01/23 21:00 History diltiazem HCl 120 mg 120 mg PO Q12H 09/02/23 02/09/24 09/02/23 08:00 History capsule,extended release 12 hr levothyroxine 112 mcg tablet 112 mcg PO DAILY 09/02/23 02/09/24 09/02/23 08:00 History clonidine 0.2 mg/24 hr weekly 1 patch transdermal WEEKLY 09/25/23 02/09/24 09/19/23 History transdermal patch hydralazine 10 mg tablet 20 mg PO TID 10/15/23 02/09/24 Unknown History tadalafil 5 mg tablet 5 mg DAILY 11/15/23 02/09/24 Unknown History Allergies Allergy/AdvReac Type Severity Reaction Status Date / Time No Known Allergies Allergy Verified 02/09/24 08:40 [facility] Past Medical History Medical History C. difficile colitis Arthritis Kidney stones Benign prostatic hyperplasia Coronary artery disease End-stage renal disease on peritoneal dialysis Obstructive sleep apnea Insulin dependent type 2 diabetes mellitus Renal cell carcinoma Status post partial left nephrectomy. Dyslipidemia Clostridium difficile infection Gastroesophageal reflux disease Depression with anxiety Hypothyroidism Cirrhosis Pituitary tumor Status post resection. Anemia Chronic diastolic (congestive) heart failure Hypertension Surgical History Surgical History History of open reduction and internal fixation (ORIF) procedure (11/2022) Screw fixation of sternal fracture. History of colonoscopy with polypectomy History of umbilical hernia repair History of inguinal hernia repair History of coronary artery stent placement History of cardiac catheterization (08/2020) Stent x2 to the LAD. History of arthroplasty of right knee History of cataract extraction History of pituitary surgery (11/2021) History of partial nephrectomy Partial left nephrectomy for renal cell carcinoma. History of cholecystectomy (2007) Family History Family History Mother Hypertension Cerebrovascular accident Aneurysm Father Family history of malignant neoplasm Carcinoma of colon Social History Social History Social History: Surrogate medical decision maker: Harriet Carl, spouse. Code status: Full code. Smoking status: Never smoker Second hand tobacco smoke exposure: No Alcohol intake: never Alcohol use details: rare, holidays Substance use: never Substance use type: does not use Do You Feel Safe in your Home?: Yes Lack of Transportation: No Lack of Food: Never True Current Housing: I Have Housing Concerned About Future Housing: No Difficulty Paying Gas/Electric Bills: No Difficulty Paying for Meds: No Currently Unemployed: No Education: Trade/Vocational Certificate Difficulty w/ Childcare or Family Care: No Living arrangements: with family Additional living arrangements comments: Lives with spouse in [place]. Occupation/Education: retired Additional occupation/education comments: [employer]. Gender identity (if verbalized by the patient): Male Sexual Orientation (if Verbalized by the Patient): Straight or Heterosexual Spiritual care concerns: No Agree to blood products: Yes Exam 2 Narrative: APPEARANCE: No apparent distress. Head: atraumatic, no erythema posterior pharynx EYES: EOMI, NOSE: Atraumatic NECK: Trachea midline RESPIRATORY: No increased rate of breathing, clear to auscultation CARDIOVASCULAR: RRR, pitting edema lower extremities ABDOMINAL: distended, dialysis catheter in place, no guarding or rebound MUSCULOSKELETAl: No obvious deformities NEURO: Alert. Moving 4/4 extremities SKIN:: Warm, dry. Normal color PSYCHIATRIC: Normal affect Course Vital Signs Vital signs: Vital Signs Temperature 36.4 C L 02/14/24 14:52 Pulse Rate 66 02/14/24 14:52 Respiratory Rate 18 02/14/24 14:52 Blood Pressure 134/58 L 02/14/24 14:52 Pulse Oximetry 98 02/14/24 14:52 Temperature 36.4 C L 02/14/24 14:52 Pulse Rate 60 02/14/24 19:53 Respiratory Rate 13 02/14/24 19:53 Blood Pressure 139/76 02/14/24 19:16 Pulse Oximetry 99 02/14/24 19:53 Oxygen Delivery Room Air 02/14/24 17:50 Medical Decision Making MDM Narrative Medical decision making narrative: -Course: 69-year-old male presenting ED with left-sided burning chest pain. Broad workup obtained. Magnesium low @ 1.0. This has been repleted. Chest x- ray was read as pulmonary edema versus pneumonitis. Patient has no respiratory complaints at this time. CT chest ordered to further evaluate. Strep throat was positive. The patient was started on amoxicillin. Patient side of the oncoming physician pending completion of his workup. Vital Signs Vital Signs: Vital Signs Temperature 36.4 C L 02/14/24 14:52 Pulse Rate 66 02/14/24 14:52 Respiratory Rate 18 02/14/24 14:52 Blood Pressure 134/58 L 02/14/24 14:52 Pulse Oximetry 98 02/14/24 14:52 Temperature 36.4 C L 02/14/24 14:52 Pulse Rate 60 02/14/24 19:53 Respiratory Rate 13 02/14/24 19:53 Blood Pressure 139/76 02/14/24 19:16 Pulse Oximetry 99 02/14/24 19:53 Oxygen Delivery Room Air 02/14/24 17:50 Lab Data 02/14/24 17:42 02/14/24 17:42 Labs: Lab Results 02/14/24 02/14/24 02/14/24 Range/Units 17:22 17:42 17:43 WBC 7.7 (4.5-10.0) K/mm3 RBC 3.28 L (4.6-6.20) M/mm3 Hgb 10.1 L (14.0-18.0) g/dL Hct 30.9 L (42.0-52.0) % MCV 94.2 (80-100) fl MCH 30.8 (26-34) pg MCHC 32.7 (32-36) g/dl RDW 15.9 H (11.5-14.5) % Plt Count 130 L (150-375) k/mm3 MPV 11.1 H (7.4-10.4) fl Immature Gran % (Auto) 1.2 H (0-0.5) % Neut % (Auto) 75.9 H (45.5-73.1) % Lymph % (Auto) 11.1 L (18.3-44.2) % [place] % (Auto) 11.4 H (2.6-8.5) % Eos % (Auto) 0.3 (0-4.4) % Baso % (Auto) 0.1 L (0.2-1.2) % Lymph # (Auto) 0.85 L (0.9-3.2) K/mm3 [place] # (Auto) 0.9 H (0.1-0.6) K/mm3 Eos # (Auto) 0.0 (0-0.3) K/mm3 Baso # (Auto) 0.0 (0.0-0.1) K/mm3 Abs Immat Gran (auto) 0.09 H (0.00-0.031) K/mm3 Absolute Neuts (auto) 5.8 (1.3-6.7) K/mm3 Absolute Nucleated RBC 0.000 (0.0-0.012) K/mm3 Nucleated RBC % 0.0 (0.0-0.2) % PT 13.7 (11.1-14.7) Seconds INR 1.0 APTT 33.1 (22.3-36.8) Seconds D-Dimer Cancelled 0.52 H Sodium 136 L (137-145) mmol/L Potassium 3.7 (3.4-5.0) mmol/L Chloride 98 (98-107) mmol/L Carbon Dioxide 31 H (22-30) mmol/L Anion Gap 7 (4-12) mmol/L BUN 48 H (9-20) mg/dL Creatinine 9.70 H (0.7-1.3) mg/dL Estim Creat Clear Calc Not Reportable Estimated GFR 5 L (59 - ) Glucose 70 (65-110) mg/dL POC Capillary Glucose (65-105) mg/dl Lactic Acid 1.4 (0.7-2.0) mmol/L Calcium 7.7 L (8.4-10.2) mg/dL Phosphorus 6.5 H (2.5-4.5) mg/dL Magnesium 1.0 L (1.6-2.3) mg/dL Total Bilirubin 0.5 (0.2-1.3) mg/dL AST 28 (17-59) U/L ALT 17 (6-50) U/L Alkaline Phosphatase 50 (38-126) U/L Troponin I 0.036 H* (0.000-0.034) ng/mL Total Protein 6.0 L (6.3-8.2) g/dL Albumin 3.2 L (3.5-5.1) g/dL Lipase 68 (23-300) U/L Influenza A (RT-PCR) Negative (Negative) Influenza B (RT-PCR) Negative (Negative) RSV (RT-PCR) Negative (Negative) SARS-CoV-2 RNA (RT-PCR) Negative (Negative) Group A Strep (PCR) Detected A (Negative) 02/14/24 Range/Units 18:40 WBC (4.5-10.0) K/mm3 RBC (4.6-6.20) M/mm3 Hgb (14.0-18.0) g/dL Hct (42.0-52.0) % MCV (80-100) fl MCH (26-34) pg MCHC (32-36) g/dl RDW (11.5-14.5) % Plt Count (150-375) k/mm3 MPV (7.4-10.4) fl Immature Gran % (Auto) (0-0.5) % Neut % (Auto) (45.5-73.1) % Lymph % (Auto) (18.3-44.2) % [place] % (Auto) (2.6-8.5) % Eos % (Auto) (0-4.4) % Baso % (Auto) (0.2-1.2) % Lymph # (Auto) (0.9-3.2) K/mm3 [place] # (Auto) (0.1-0.6) K/mm3 Eos # (Auto) (0-0.3) K/mm3 Baso # (Auto) (0.0-0.1) K/mm3 Abs Immat Gran (auto) (0.00-0.031) K/mm3 Absolute Neuts (auto) (1.3-6.7) K/mm3 Absolute Nucleated RBC (0.0-0.012) K/mm3 Nucleated RBC % (0.0-0.2) % PT (11.1-14.7) Seconds INR APTT (22.3-36.8) Seconds D-Dimer Sodium (137-145) mmol/L Potassium (3.4-5.0) mmol/L Chloride (98-107) mmol/L Carbon Dioxide (22-30) mmol/L Anion Gap (4-12) mmol/L BUN (9-20) mg/dL Creatinine (0.7-1.3) mg/dL Estim Creat Clear Calc Estimated GFR (59 - ) Glucose (65-110) mg/dL POC Capillary Glucose 59 L* (65-105) mg/dl Lactic Acid (0.7-2.0) mmol/L Calcium (8.4-10.2) mg/dL Phosphorus (2.5-4.5) mg/dL Magnesium (1.6-2.3) mg/dL Total Bilirubin (0.2-1.3) mg/dL AST (17-59) U/L ALT (6-50) U/L Alkaline Phosphatase (38-126) U/L Troponin I (0.000-0.034) ng/mL Total Protein (6.3-8.2) g/dL Albumin (3.5-5.1) g/dL Lipase (23-300) U/L Influenza A (RT-PCR) (Negative) Influenza B (RT-PCR) (Negative) RSV (RT-PCR) (Negative) SARS-CoV-2 RNA (RT-PCR) (Negative) Group A Strep (PCR) (Negative) Discharge Plan Discharge Clinical Impression: Atypical chest pain, Strep throat Patient Disposition: Home, Self-Care Condition: Stable Instructions: Antibiotic Form, Chest Pain (ED), Strep Throat (ED) Patient Language: [place] Prescriptions: New amoxicillin 500 mg capsule 500 mg PO Q12H Qty: 20 0RF No Action tadalafil 5 mg tablet 5 mg DAILY benzonatate 200 mg capsule 200 mg PO TID PRN (Reason: cough) 10 Days Qty: 30 0RF aspirin [Sami Low Dose Aspirin] 81 mg Tablet,Delayed Release (Dr/Ec) 81 mg PO DAILY ICaps AREDS2 (copper citrate) 250 mg-200 unit -12.5 mg-1 mg Tablet 1 tablet PO Q12H fenofibrate nanocrystallized 145 mg tablet 145 mg PO DAILY Qty: 30 0RF carvedilol [Coreg] 25 mg tablet 25 mg PO Q12H (DME) pen needle, diabetic [BD Ultra-Fine Micro Pen Needle] 32 gauge x 1/4 needle See Rx Instructions .ROUTE .MEDSUPPLY Qty: 200 11RF Rx Instructions: inject five times daily insulin glargine [Basaglar KwikPen U-100 Insulin] 100 unit/mL (3 mL) insulin pen 30 unit subcut Q12H lisinopril 20 mg tablet 20 mg PO BID (DME) OneTouch Ultra Blue Test Strip Strip See Rx Instructions .ROUTE .MEDSUPPLY Rx Instructions: Test blood sugar three times per day. clonidine 0.2 mg/24 hr patch weekly 1 patch transdermal WEEKLY insulin aspart U-100 [Novolog FlexPen U-100 Insulin] 100 unit/mL (3 mL) insulin pen See Rx Instructions .ROUTE .COMPLEX Rx Instructions: sliding scale cholecalciferol (vitamin D3) [Vitamin D3] 125 mcg (5,000 unit) Tablet 125 mcg PO DAILY Dialyvite 800-Ultra D 0.8-2,000 mg-unit Tablet 1 tablet PO DAILY furosemide 80 mg Tablet 160 mg PO BID diphenhydramine-acetaminophen [Tylenol PM Extra Strength] 25-500 mg Tablet 2 tablet PO HS diltiazem HCl 120 mg capsule,extended release 12 hr 120 mg PO Q12H atorvastatin 80 mg tablet 80 mg PO HS levothyroxine 112 mcg tablet 112 mcg PO DAILY (DME) blood-glucose meter [RouterShareTouch Ultra2 Meter] Misc See Rx Instructions .ROUTE .MEDSUPPLY Qty: 1 0RF Rx Instructions: As directed (DME) lancets [OneTouch Delica Lancets] 30 gauge misc See Rx Instructions .ROUTE .MEDSUPPLY Qty: 100 3RF Rx Instructions: As directed hydralazine 10 mg tablet 20 mg PO TID lorazepam [Ativan] 0.5 mg tablet 0.5 mg PO HS PRN (Reason: Anxiety) Qty: 30 0RF gabapentin 300 mg capsule 300 mg PO TID Qty: 90 5RF pantoprazole [Protonix] 40 mg tablet,delayed release (DR/EC) 40 mg PO BID Qty: 180 0RF Follow-up/Referrals: Jeff Strickland MD [Primary Care Provider] - Time of Disposition: 20:24
--- NOTE | 2024-02-14 17:23 | PC.NURSE ---
Attempted IV with no success. Dr Hunter to use US to place IV
[2024-02-14 17:49] LABS: Strep Group A RT-PCR DETECTED (Negative)
[2024-02-14 17:49] LABS: Basophils Percent Auto 0.1 % (0.2-1.2); Eosinophils Percent Auto 0.3 % (0-4.4); Hematocrit 30.9 % (42.0-52.0); Hemoglobin 10.1 g/dL (14.0-18.0); Immature Granulocyte Absolute 0.09 K/mm3 (0.00-0.031); Immature Granulocyte Percent A 1.2 % (0-0.5); Lymphocytes Absolute Auto 0.85 K/mm3 (0.9-3.2); Lymphocytes Percent Auto 11.1 % (18.3-44.2); Mean Corpuscular HGB Conc 32.7 g/dl (32-36); Mean Corpuscular Hemoglobin 30.8 pg (26-34); Mean Corpuscular Volume 94.2 fl (80-100); Mean Platelet Volume 11.1 fl (7.4-10.4); Monocytes Absolute Auto 0.9 K/mm3 (0.1-0.6); Monocytes Percent Auto 11.4 % (2.6-8.5); Neutrophils Absolute Auto 5.8 K/mm3 (1.3-6.7); Neutrophils Percent Auto 75.9 % (45.5-73.1); Platelet Count Result 130 k/mm3 (150-375); Red Blood Count 3.28 M/mm3 (4.6-6.20); Red Cell Distribution Width 15.9 % (11.5-14.5); White Blood Count 7.7 K/mm3 (4.5-10.0)
--- NOTE | 2024-02-14 17:53 | PC.NURSE ---
Patient denies pain at this time. patient states the pain in his left side radiating into his chest is intermittent
[2024-02-14 18:02] LABS: Prothrombin Time 13.7 Seconds (11.1-14.7)
[2024-02-14 18:02] LABS: Influenza A QL RT-PCR Negative (Negative); Influenza B QL RT-PCR Negative (Negative); RSV RNA, RT-PCR Negative (Negative); SARS-CoV-2 RNA PCR Negative (Negative)
[2024-02-14 18:03] LABS: Partial Thromboplastin Time 33.1 Seconds (22.3-36.8)
[2024-02-14 18:04] LABS: Lactic Acid Reflex 1.4 mmol/L (0.7-2.0)
[2024-02-14 18:05] LABS: Alanine Aminotransferase 17 U/L (6-50); Albumin Level 3.2 g/dL (3.5-5.1); Alkaline Phosphatase 50 U/L (38-126); Anion Gap 7 mmol/L (4-12); Aspartate Amino Transferase 28 U/L (17-59); Bilirubin,Total 0.5 mg/dL (0.2-1.3); Blood Urea Nitrogen 48 mg/dL (9-20); Calcium 7.7 mg/dL (8.4-10.2); Carbon Dioxide 31 mmol/L (22-30); Chloride 98 mmol/L (98-107); Estimated Glomerular Filt Rate 5; Glucose 70 mg/dL (65-110); Lipase 68 U/L (23-300); Phosphorus 6.5 mg/dL (2.5-4.5); Potassium 3.7 mmol/L (3.4-5.0); Sodium 136 mmol/L (137-145)
[2024-02-14 18:07] LABS: D Dimer 0.52 ug/mL (<0.48)
[2024-02-14 18:28] LABS: Troponin I 0.036 ng/mL (0.000-0.034)
[2024-02-14 18:42] LABS: Glucose Point of Care 59 mg/dl (65-105)
--- NOTE | 2024-02-14 18:53 | PC.NURSE ---
Patient's BS was 59. brought patient's glucose tablets and per verbal from Dr Hunter, gave the OK for patient to have them. patient also given food and drink
--- NOTE | 2024-02-14 19:14 | PC.NURSE ---
Report received from PORSHA Gomez. Assumed care of patient at this time. Patient eating sandwich at this time.
[2024-02-14] MEDS: MAGNESIUM SULF 2 GM/WATER 50ML 2 GM/50 ML BAG IVPB (19:20)
[2024-02-14] MEDS: AMOXICILLIN 500 MG CAPSULE PO (19:37)
--- NOTE | 2024-02-14 19:41 | PC.NURSE ---
Patient taken to CT via stretcher at this time. Patient has mag going via pump.
--- NOTE | 2024-02-14 20:04 | ECG_ITS ---
Test Date: 2024-02-14 20:14:02 Measurements Intervals [place] Rate: 61 P: 73 ND: 177 QRS: -55 QRSD: 105 T: 21 QT: 433 QTc: 439 Interpretive Statements SINUS RHYTHM PATTERN CONSISTENT WITH PULMONARY DISEASE INCOMPLETE RIGHT BUNDLE BRANCH BLOCK [90+ ms QRS DURATION, TERMINAL R IN V1/V2, 40+ ms S IN I/aVL/V4/V5/V6] LEFT ANTERIOR FASCICULAR BLOCK [QRS AXIS <= -45, QR IN I, RS IN II] POSSIBLE SEPTAL MYOCARDIAL INFARCTION , PROBABLY OLD [30 ms Q WAVE IN V1/V2] NONSPECIFIC T-WAVE ABNORMALITY ABNORMAL ECG Electronically Signed On 02-15-2024 08:59:12 FLATWORK FEEDER by Lalit Platt M.D.
[2024-02-14 20:45] LABS: Troponin I 0.039 ng/mL (0.000-0.034)
== END 2024-02-14 21:08 | disposition home or self-care (01) ==
PROVIDERS: Emergency Provider Emergency Medicine; PCP Family Medicine
DX: R07.89 Other chest pain (principal); J02.0 Streptococcal pharyngitis; Z20.822 Contact with and (suspected) exposure to COVID-19; R94.31 Abnormal electrocardiogram [ECG] [EKG]; I45.2 Bifascicular block; I13.2 Hypertensive heart and chronic kidney disease with heart failure and with stage 5 chronic kidney disease, or end stage renal disease; E11.22 Type 2 diabetes mellitus with diabetic chronic kidney disease; N18.6 End stage renal disease; Z99.2 Dependence on renal dialysis; I50.32 Chronic diastolic (congestive) heart failure; I25.10 Atherosclerotic heart disease of native coronary artery without angina pectoris; E78.5 Hyperlipidemia, unspecified; N40.0 Benign prostatic hyperplasia without lower urinary tract symptoms; K74.60 Unspecified cirrhosis of liver; D64.9 Anemia, unspecified; G47.33 Obstructive sleep apnea (adult) (pediatric); M19.90 Unspecified osteoarthritis, unspecified site; F41.8 Other specified anxiety disorders; Z95.5 Presence of coronary angioplasty implant and graft; Z96.651 Presence of right artificial knee joint; Z86.0100 Personal history of colon polyps, unspecified; Z85.528 Personal history of other malignant neoplasm of kidney; Z98.49 Cataract extraction status, unspecified eye; Z90.49 Acquired absence of other specified parts of digestive tract; Z90.5 Acquired absence of kidney; Z79.4 Long term (current) use of insulin; Z79.899 Other long term (current) drug therapy; Z79.82 Long term (current) use of aspirin
CPT/HCPCS: 36415; 71045; 71250; 80053; 82948; 83605; 83690; 83735; 84100; 84484; 85025; 85380; 85610; 85730; 87637; 87651; 93005; 96365; 96366; 99284; A9270; J3475

== ENCOUNTER 2024-03-13 14:35 | Inpatient (IN) | payer MEDICARE, SELFPAY ==
[2024-03-13] VITALS (19 sets, daily range): BP systolic 121–177; BP diastolic 55–85; PULSE 58–83; RESP 11–21; TEMP 36.5–36.9; O2SAT 97–100; BMI 41.2
--- NOTE | ~2024-03-13 | XR_ITS ---
CHEST RADIOGRAPH, PA AND LATERAL CLINICAL HISTORY: chest pain . COMPARISON: 02/13/2024 TECHNIQUE: PA and lateral views of the chest. FINDINGS Fixation hardware projecting over the sternum The remainder of the cardiomediastinal silhouette is otherwise unremarkable. Calcified granuloma within the right upper lobe. The remainder of the lungs are clear. IMPRESSION: No focal infiltrate or effusion. Reviewed, dictated and finalized at location A. EASING WHEEL OPERATOR
--- NOTE | ~2024-03-13 | US_ITS ---
Duplex Sonography of the bilateral lower extremities: Indication: Edema Sagittal and transverse B-mode images as well as color-flow imaging were performed on the right and l eft femoral and popliteal veins. B-mode examination was done without and with compression in the tra nsverse plane. There is good visualization of the bilateral common femoral, proximal profunda femora l, superficial femoral, greater saphenous, and popliteal veins. Normal flow was seen on color-flow im aging. Normal compressibility was demonstrated. Visualized calf veins are patent. Impression: No evidence of deep vein thrombosis involving the bilateral lower extremities. Reviewed, dictated and finalized at location M. TIVE SPOTTER Impression: No evidence of deep vein thrombosis involving the bilateral lower e xtremities.
--- NOTE | ~2024-03-13 | XR_ITS ---
Supine and upright views of the abdomen Clinical history: Constipation, diarrhea Findings: Bowel gas pattern is nonspecific. No evidence for obstruction or free air. No abnormal mass lesion or calcification is seen. Osseous structures are intact. Impression: No significant abnormality is seen. Reviewed, dictated and finalized at [facility]. [employer] Impression: No significant abnormality is seen.
--- OUTSIDE RECORDS SUMMARY | 2024-03-13 14:38 | XMS_ITS | Encounter Summary ---
Author Organization [facility] Address [facility] [place] [address] Care Team Providers Care Herb Doctor Name Role Phone Deandre Bojorquez MD Unavailable [phone] Jeff Strickland MD Primary Care Provider [phone] Encounter Details Date Type Department Care Team (Late st Contact Info) Description 11/21/2023 Lab Requisition [facility] MAIN LAB [address] [place] [phone] Alan Davenport MD [facility] [place] [address] Social History Tobacco Use Types Packs/Day Years Used Date Smoking Tobacco: Never Smokeless Tobacco: Never Alcohol Use Standard Drinks/Week Comments Not Currently 0 (1 standard drink = 0.6 oz pur e alcohol) socially in past Sex and Gender Information Value Date Recorded Sex Assigned at Male 07/02/2021 2:37 PM CDT Gender Identity Male 07/02/2021 2:37 PM CDT Sexual Orientation Straight 07/02/2021 2: 37 PM CDT documented as of this encounter Functional Status Functional Status Response Date of Assess ment Is person deaf or have serious hearing difficult y? No 08/04/2020 Is person blind or have serious difficulty seein g? No 08/04/2020 Does person have serious dif ficulty walking/climbing stairs? No 08/04/2020 Does person have difficulty dressing/bathing? No 08/04/2020 Does person have difficulty doing errands alone? No 08/04/2020 Cognitive Status Response Date of Assessm ent Does person have difficulty concentrating/remembering/making decisions? No 08/04/2020 documented as of this encounter Plan of Treatment Upcoming Encounters Date Type Department Care Team (Late st Contact Info) Description 08/04/2024 11:30 AM CDT Appointment [facility] MRI [address] [place] [address] Thomas Mendoza MD [address] [facility] 2L [place] [address] 08/04/2024 1:30 PM CDT Office Visit [facility] - Urology [address] [place] [address] Thomas Mendoza MD [address] [facility] 2L [place] [address] documented as of this encounter Procedures Procedure Name Priority Date/Time Associated Diagnosis Comments HOLD HLA SPECIMEN Routine 11/18/2023 12: 16 PM CDT documented in this encounter Results * HOLD HLA SPECIMEN (11/18/2023 12:16 PM CDT) Hold HLA Specimen 11/21/2023 1:31 PM CDT [facility] Comment:The Hold HLA specime n has been received into the lab and will be held for 5 years at 4 degrees. Blood BLOOD SPECIMEN / Unknown 11/18/2023 12:16 PM CDT 11/21/2023 12:17 PM CDT Alan Davenport MD LAB - BLOOD BANK ORD ERABLES [facility] ([facility] [address] [place] [address], [facility] documented in this encounter Visit Diagnoses Not on filedocumented in this encounter Care Teams Herb Doctor Relationship Specialty Start Date End Date Jeff Strickland MD [address] [place] [address] PCP - General 03/05/18 [place] [address] [address] Orthopedic Surgery 03/28/17 documented as of this encounter
--- OUTSIDE RECORDS SUMMARY | 2024-03-13 14:38 | XMS_ITS | Encounter Summary ---
Author Organization [facility] Address [facility] [place] [address] Care Team Providers Care Career Coach Name Role Phone Deandre Bojorquez MD Unavailable [phone] Jeff Strickland MD Primary Care Provider [phone] Encounter Details Date Type Department Care Team (Late st Contact Info) Description 02/04/2024 Lab Requisition [facility] MAIN LAB [address] [place] [phone] Alan Davenport MD [facility] [place] [address] Social History Tobacco Use Types Packs/Day Years [...] Info) Description 08/04/2024 11:30 AM CDT Appointment [facility] MRI [address] [place] [address] Thomas Mendoza MD [address] [facility] 2L DIV [place]OLOGIC [place] [address] 08/04/2024 1:30 PM CDT Office Visit [facility] - Urology [address] [place] [address] Thomas Mendoza MD [address] [facility] 2L DIV [place]OLOG[place] [address] documented as of this encounter Procedures Procedure Name Priority Date/Time Associated Diagnosis Comments HOLD HLA SPECIMEN Routine 01/27/2024 3:2 3 PM METAL MACHINE SETTER documented in this encounter Results * HOLD HLA SPECIMEN (01/27/2024 3:23 PM METAL MACHINE SETTER) Hold HLA Specimen 02/04/2024 4:31 PM METAL MACHINE SETTER [facility] ([facility]) Comment:The Hold HLA specime n has been received into the lab and will be held for 5 years at 4 degrees. Blood BLOOD SPECIMEN / Unknown 01/27/2024 3:23 PM METAL MACHINE SETTER 02/04/2024 3:23 PM METAL MACHINE SETTER Alan Davenport MD LAB - BLOOD BANK ORD ERABLES [facility] ([place]) [address] documented in this encounter Visit Diagnoses Not on filedocumented in this encounter Care Teams Career Coach Relationship Specialty Start Date End Date Jeff Strickland MD [address] [place] [address] PCP - General 03/05/18 [place] [address] [facility] [address] [place] [address] Orthopedic Surgery 03/28/17 documented as of this encounter
--- OUTSIDE RECORDS SUMMARY | 2024-03-13 14:38 | XMS_ITS | Encounter Summary ---
Author Organization [facility] Address [facility] [place] [address] Care Team Providers Care Bunker Worker Name Role Phone Deandre Bojorquez MD Unavailable [phone] Jeff Strickland MD Primary Care Provider [phone] Encounter Details Date Type Department Care Team (Late st Contact Info) Description 07/31/2023 Lab Requisition [facility] MAIN LAB [address] [place] [phone] Alan Davenport MD [facility] OF ABD [place] [address] Social History Tobacco Use Types Packs/Day Years [...] Info) Description 08/04/2024 11:30 AM CDT Appointment [facility] MRI [address] [place] [address] Thomas Mendoza MD [address] [facility] 2L [place] [address] 08/04/2024 1:30 PM CDT Office Visit [facility] - Urology [address] [place] [address] Thomas Mendoza MD [address] [facility] 2L [place] [address] documented as of this encounter Procedures Procedure Name Priority Date/Time Associated Diagnosis Comments HOLD HLA SPECIMEN Routine 07/23/2023 2:0 5 PM CDT documented in this encounter Results * HOLD HLA SPECIMEN (07/23/2023 2:05 PM CDT) Hold HLA Specimen 07/31/2023 3:32 PM CDT [facility] Comment:The Hold HLA specime n has been received into the lab and will be held for 5 years at 4 degrees. Blood BLOOD SPECIMEN / Unknown 07/23/2023 2:05 PM CDT 07/31/2023 2:06 PM CDT Alan Davenport MD LAB - BLOOD BANK ORD ERABLES [facility] ([facility]) [address] [place], [place] [address] [place] [address] documented in this encounter Visit Diagnoses Not on filedocumented in this encounter Care Teams Bunker Worker Relationship Specialty Start Date End Date Jeff Strickland MD [address] [place] [address] PCP - General 03/05/18 [place] [address] [address] Orthopedic Surgery 03/28/17 documented as of this encounter
--- OUTSIDE RECORDS SUMMARY | 2024-03-13 14:38 | XMS_ITS | Referral Summary ---
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 function. There is small pericardial effusion visualized. Submaximal heart rate response, 61% of age predicted. Pharmacologic stress echocardiogram is normal. There is trace tricuspid regurgitation. Unable to estimate right ventricular systolic pressure due to an incomplete Doppler signal. Stress EKG is negative for ischemic changes. Stress Echo The resting wall motion is normal with an estimated ejection fraction of 60%. Normal augmentation of all wall segments without evidence of ischemia with pharmacologic stress. Stress ejection fraction estimated at 65%. C: 11/10/2018 CXR: 11/09/2019 FINDINGS/IMPRESSION: ?? There is no focal consolidation, pleural effusion, or pneumothorax. The cardiomediastinal silhouette is normal. There are multilevel anterior bridging osteophytes in the thoracic spine consistent with there is mild bibasilar atelectasis. Diffuse idiopathic skeletal hyperostosis (DISH). CT abd/pelvis non-contrast: 11/09/2019 FINDINGS: No prior study is available for comparison at the time of this dictation. ?? There are mild vascular calcifications of the visible coronary arteries. There are mild vascular calcifications of the abdominal aorta and the bilateral common iliac arteries which are worse on the left side. There is no significant atherosclerotic calcification of the bilateral external iliac arteries. Calcified plaques are present in the bilateral renal arteries with mild narrowing. ?? There is a 5 mm pulmonary nodule in the left lower lobe (series 3, image 23). The heart size is normal within a small amount of pericardial fluid. ?? The bilateral kidneys are mildly small with multiple hypoattenuating lesions likely representing cysts. Some of the lesions are more hyperattenuating likely representing hemorrhagic or proteinaceous cysts, for reference a 0.9 cm lesion upper pole of the right kidney is hyperattenuating (image 48, series 3) likely representing hemorrhagic or proteinaceous cyst. There is a hypoattenuating lesion arising from the left kidney exophytically measuring 5.2 x 4.6 cm with layering fluid likely representing a hemorrhagic cyst (image 80, series 3). An approximately 1.2 cm lesion arising from the inferior pole of the left kidney is also hyperattenuating. There are multiple hemorrhagic cyst within both kidneys. Linear hyperattenuating densities in the upper pole of the right kidney laterally (image 59, series 3), may represent postsurgical or posttreatment changes. There is no hydronephrosis or urinary calculus. Renal vascular anatomy is conventional. ?? The liver appears no evidence of a noncontrast examination. The gallbladder is surgically absent. The intrahepatic and extrahepatic bile ducts are nondilated. The spleen, the pancreas and adrenal glands are normal. ?? The distal esophagus and stomach appear normal. The small bowel and colon are normal in caliber without evidence of wall thickening or obstruction. The appendix appears normal without appendicolith or surrounding inflammatory changes. No free air or free fluid is identified within the abdomen. There is no abdominal lymphadenopathy. There are small bilateral inguinal hernias which contain fat but no bowel. ?? The urinary bladder is distended with fluid and appears normal. The prostate is enlarged, measuring 5.6 cm transversely. No free fluid is seen within the pelvis. There is no pelvic lymphadenopathy. ?? Bone windows demonstrate no suspicious lytic or blastic lesions. The visible osseous structures are intact. ? IMPRESSION: ?? 1. Bilateral renal cysts. Some lesions are more hyperattenuating than simple fluid and may represent hemorrhagic or proteinaceous cysts although cannot exclude malignancy on this limited noncontrast examination. Linear hyperattenuating density in the upper pole of right kidney laterally likely represents postsurgical/posttreatment changes. Mild abdominal aorta and iliac artery atherosclerotic calcifications. ?? 2. Left lower lobe pulmonary nodule measuring 5 mm. According to Fleischner criteria, a follow-up CT is optional in one year. ?? 3. Small bilateral inguinal hernias which contain mesenteric fat but no bowel. ?? 4. Enlarged prostate. PPD: Colonoscopy: Panorex: 11/09/2019 FINDINGS: No prior study is available for comparison at the time of this dictation. ?? Multiple dental restorations are identified. Impacted bilateral third maxillary and mandibular molars are noted. No acute mandibular fracture is identified. Both temporomandibular joints are intact. There is no periapical abscess. ? IMPRESSION: ?? No periapical abscess. Dental: 09/30/2019 Clearance from dentist ? SW: 11/09/2019 Clinical Social Work Impression: It is the impression of this director social that Kendall Carl has several positive factors for Kidney transplant candidacy from a psychosocial perspective. Patient appears to have appropriate knowledge of illness. Patient has sufficient insurance coverage and stable financial situation for post transplant needs. No concerns regarding substance abuse, legal issues, or mental health needs. Patient has adequate support system and appropriate discharge plan. ?? Plan: adoption worker to provide supportive services as needed. Patient appears to be a reasonable candidate for transplant from a psychosocial perspective. ?? -Post transplant arrangement forms are needed prior to being listed. -Updated toxicology results needed, per protocol Psychiatric Consult Recommended: No ?? Transplant Developer Automatic: Joy Tam LCSW ?? RD: 11/09/2019 ?? BMI= 36.2, Class II Obesity. Pt's reported home weight today was 245 lbs. Goal weight is 237 lbs/8 lb weight loss. BMI < 35. ? Recommendations/Interventions/Pt Instructed to: ? 1. Drink no regular soda - Theoretically by giving up the soda you were drinking, you should lose 1 lb per week or 24 lbs in 6 months provided you do not replace those calories. 2. Exercise - Goal is 150 minutes weekly. Start this week at 75 minutes and increase by 10 minutes weekly to goal - walk or stationary bike. Can add toning also. 3. Establish a regular eating pattern - 3 meals plus 2 snacks. Eat within 1-2 hours after you awaken. Have meals 4-6 hours apart. Have snacks 2-3 hours in between or after meals. 4. Download the Nutrition Facts of restaurants you order from - Stay with an amount of 600 calories and 600 mg of Sodium or less at meals. 5) Download a free uzma and calorie count (can use my fitness pal or my food college football coach) - Consume no more than 2000 calories a day ?? E-mailed pt's a 2000 calorie, CKD meal plan. Items Still Pending: Clinic, colonoscopy Acute pain of left shoulder 01/25/2019 03/25/2023 Non-cardiac chest pain 11/18/201803/25 Assessment & Plan (01/21/2019 2:02 PM CARBURETOR SPECIALIST): The pain is persistent. The patient described pain over the precordial area radiating to the left upper arm. He tells me that his being worked up for cervical spine disease with a cyst which may be responsible for the pain. He is awaiting imaging studies. I reassured him and his that I did not think the pain was esophageal in origin. The patient does however stated that the pain sometimes is aggravated by meal and relieved on drinking cold liquids which raises the possibility of dysmotility or hypersensitivity. Plan. I will request for esophageal motility study. I advised the patient to hold off on the motility study until after he has completed his evaluation by the spine surgeon. Assessment & Plan (11/18/2018 11:15 AM CDT): Moderately severe. The patient has had extensive cardiac workup by the care manager including coronary angiogram. He has chest pain that is aggravated by eating and swallowing. The patient may have esophageal ulcer, dysmotility. Plan Will schedule for Esophagogastroduodenoscopy. He may need esophageal manometry if endoscopy is negative. 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 ([facility]) 05/18/2018 03/25/2023 CKD stage 4 secondary to hyp ertension ([facility]) 05/18/2018 03/25/2023 Poor diet 05/18/2018 03/25/2023 Dizziness 05/18/2018 03/25/2023 Type 2 diabetes mellitus wit hout complication ([facility]) 12/03/2017 03/25/2023 Kidney disease 08/06/2017 03/25/2023 Obstructive sleep apnea 10/22/2016 0207/2023 Immunizations Name Administration Dates Next Due Hep B Vaccine 03/26/2021,,03/21/2020,02/27,01/27/2020 Influenza, Quadrivalent, Rec ombinant, Egg Free, Preservative Free, Intramuscular 01/17/2020 Influenza, Quadrivalent, Spl it, Preservative Free, Intramuscular 05/03/2023,03/30/2018 Influenza, Trivalent, Preser vative Free, Intramuscular 04/09/2016 Influenza, Unspecified 10/29/2020,01/17/2020, Pfizer SARS-CoV-2 Monovalent Vaccination (12+ Yrs) PURPLE 03/20/2020 Pneumococcal Conjugate PCV 13 08/09/2020, 020 Pneumococcal Conjugate, Unspecified 08/09/2020,1 04/11/2019 Tdap 04/10/2016,04/09/2016 Social History Tobacco Use Types Packs/Day Years Used Date Smoking Tobacco: Never Smokeless Tobacco: Never Tobacco Cessation:Counseling Given: Not Answered Alcohol Use Standard Drinks/Week Comments Yes 0 (1 standard drink = 0.6 oz pur e alcohol) rarely [facility] Utilities Answer Date Recorded In the past 12 months has e electric, gas, oil, or water company threatened to shut off services in your home? No 03/25/2023 Social Connection and Isolat ion Panel [NHANES] Answer Date Recorded In a typical week, how many times do you talk on the phone with family, friends, or neighbors? More than three times a week 03/25/2023 How often do you get togethe r with friends or relatives? More than three times a week 03/25/2023 How often do you attend chur ch or roman catholic services? Never 03/25/2023 Do you belong to any clubs o r organizations such as gnosticism groups, unions, fraternal or athletic groups, or school groups? No 03/25/2023 How often do you attend meet ings of the clubs or organizations you belong to? Never 03/25/2023 Are you , , di vorced, , never , or living with a partner? 03/25/2023 AUDIT-C Answer Date Recorded Q1: How often do you have a drink containing alc ohol? Monthly or less 10/06/2023 Q2: How many drinks containi ng alcohol do you have on a typical day when you are drinking? 1 or 2 10/06/2023 Q3: How often do you have si x or more drinks on one occasion? Never 10/06/2023 Overall Financial Resource Strain (CARDIA) Answe r Date Recorded How hard is it for you to pa y for the very basics like food, housing, medical care, and heating? Not hard at all 03/25/2023 PHQ-2 Answer Date Recorded PHQ-2 Total Score 0 12/22/2022 Hunger Vital Sign Answer Date Recorded Within the past 12 months, y ou worried that your food would run out before you got the money to buy more. Never true 10/06/19 24 Within the past 12 months, t he food you bought just didn't last and you didn't have money to get more. Never true 10/06/2023 PRAPARE - Transportation Answer Date Re corded In the past 12 months, has l ack of transportation kept you from medical appointments or from getting medications? No 07/2023 In the past 12 months, has l ack of transportation kept you from meetings, work, or from getting things needed for daily living? No 03/25/2023 Housing Stability Vital Sign Answer Frankie e Recorded In the last 12 months, was t here a time when you were not able to pay the mortgage or rent on time? No 03/25/2023 In the last 12 months, how many places have you lived? 1 03/25/2023 In the last 12 months, was t here a time when you did not have a steady place to sleep or slept in a custodial (including now)? No 03/25/2023 Housing Stability Vital Sign Answer Frankie e Recorded In the last 12 months, was t here a time when you were not able to pay the mortgage or rent on time? No 03/25/2023 Number of Times Moved in the Last Year Not on fi le 03/25/2023 Homeless in the Last Year Not on file 2023 Personal Safety Answer Date Recorded Have you ever been in or are you currently in a harmful physical or emotional relationship or is someone making you feel afraid or unsafe? Denies 08/11/2023 Sex and Gender Information Value Date Recorded Sex Assigned at Not on file Legal Sex Male 2:23 AM CARBURETOR SPECIALIST Gender Identity Not on file Sexual Orientation Not on file Occupation Industry Job Start Date Job End Date Retired Not on file Not on file Not on file Last Filed Vital Signs Vital Sign Reading Time Taken Comments Blood Pressure 118/56 11/17/2023 11:02 AM CDT Pulse 56 11/17/2023 11:02 AM CDT Temperature 35.6 ??C (96 ??F) 11/17/2023 11: 02 AM CDT Respiratory Rate 18 11/17/2023 11:0 2 AM CDT Oxygen Saturation 96% 11/17/2023 11: 02 AM CDT Inhaled Oxygen Concentration - - Weight 121.1 kg (266 lb 14.4 oz) 2023 11:02 AM CDT Height 172.7 cm (5' 8 ) 11/17/2023 11:0 2 AM CDT Body Mass Index 40.58 11/17/2023 11:02 AM CDT Plan of Treatment Not on file Medical Devices Implanted Type Area Non Ferrous Material Handler Device Identifier Shelf Expiration Date Model / Serial / Lot [employer] Sternalock Vinicio 24 Hole Sternum Straight Plate Bone Primary [id number] - [id number] Implanted:Qty: 1 on 12/20/2022 by Bridget Gupta MD at [facility] Plate N/A: Sternum [employer] [id number] / / [employer] Sternalock Vinicio 2.4mm 14mm Self Drill Lock Sternum Cancellous 73-2414 - [id number] Implanted:Qty: 6 on 12/20/2022 by Bridget Gupta MD at [facility] Screw N/A: Sternum [employer] 73-2414 / / [employer] Sternalock Vinicio 2.4mm 12mm Self Drill Lock Sternum Cancellous 73-2412 - [id number] Implanted:Qty: 9 on 12/20/2022 by Bridget Gupta MD at [facility] Screw N/A: Sternum [employer] [id number] / / [employer] Sternalock Vinicio 2.7mm 14mm Self Drill Lock Sternum Cancellous 73-2714 - [id number] Implanted:Qty: 1 on 12/20/2022 by Bridget Gupta MD at [facility] Screw N/A: Sternum [employer] 73-2714 / / Stent Stent Heart Description:x2 07/2020 Tkr Right: Knee [employer]/C R Bard Bard Marlex 6x3in Monofilament Gold Standard Flat Sheet Groin [id number] - [id number] Implanted:Qty: 1 on 07/29/2023 by Christiano Bell MD at [facility] Right: Inguinal [employer]/C R Bard [id number] 08/15/2027 [id number] / / [id number] Procedures Procedure Name Priority Date/Time Associated Diagnosis Comments POCT HEMOGLOBIN A1C Routine 11/07/2023 1 :32 PM CDT Type 2 diabetes mellitus with chronic kidney disease on chronic dialysis, with long-term current use of insulin (HCC) EGFR STAT 08/11/2023 7:50 PM CDT LIPID PANEL STAT 11/30/2022 12:32 AM CDT from Last 3 Months or Most Recently Relevant to Health Maintenance Results * POCT hemoglobin A1c (11/07/2023 1:32 PM CDT) Hemoglobin A1C, POC 6.9 4.0 - 5.6 % Blood 11/07/2023 1:32 PM CDT Gregory Curtis MD POINT OF CARE TEST ORDERABLES Final Result * (ABNORMAL) eGFR (08/11/2023 7:50 PM CDT) Pathologist [facility] eGFR 5(L) >=60 mL/min/1. 73 m2 Comment: Interpretive Data Reference Interval Normal ?>/= 90 mL/min/1.73m2 Mildly decreased* ? 60 - 89 mL/min/1.73m2 Mildly to moderately decreased ?45 - 59 mL/min/1.73m2 Moderately to severely decreased ??30 - 44 mL/min/1.73m2 Severely decreased ?15 - 29 mL/min/1.73m2 Kidney Failure ?< 15 ??mL/min/1.73m2 *Relative to young adult level Estimated glomerular filtration rate is determined by the 2020 CKD-EPI equation recommended by the National Kidney Foundation (A Unifying Approach to GFR Estimation: Recommendations of the NKF-ASK Task Force on Reassessing the Inclusion of Race in Diagnosing Kidney Disease, JASSunny 2020). The CKD-EPI equation should not be used for patients with unstable renal function and has not been validated in children and those over 70. Current interpretive data was last reviewed 2020. Testing performed by: [facility], [address] [place] [address], [place]., [address] Blood 08/11/2023 7:50 PM CDT 08/11/2023 8:05 PM CDT us Leni Cervantes MD LAB BLOOD ORDERABLES Kenna haider Result [facility] [address] [facility] Department [place] [address] * (ABNORMAL) Lipid panel (11/30/2022 12:32 AM CDT) Cholesterol 209(H) 30 - 199 mg/dL Comment: Interpretive Data Ages < or = 19 years ??Acceptable: ? <170 mg/dL ??Borderline high: ??170-199 mg/dL ??High: ? >or= 200 mg/dL Ages > or = 20 years ??Desirable: ?<200 mg/dL ??Borderline high: ??200-239 mg/dL ??High: ? >or= 240 mg/dL Literature References: 1. Expert Panel on Integrated Guidelines for Cardiovascular Health and Risk Reduction in Children and Adolescents. Pediatrics 2011;128:S213 2. NCEP Expert Panel. Circulation 2004;110:227 Current Interpretive Data was last revised on 2017. Triglycerides 439(H) <=149 mg/dL [facility] Comment: Interpretive Data Ages < or = 9 years ??Acceptable: ? <75 mg/dL ??Borderline high: ??75-99 mg/dL ??High: ? >or= 100 mg/dL Ages 10 to 20 years ??Acceptable: ? <90 mg/dL ??Borderline high: ??90-129 mg/dL ??High: ? >or= 130 mg/dL Ages > or = 20 years ??Desirable: ?<150 mg/dL ??Borderline high: ??150-199 mg/dL ??High: ? 200-499 mg/dL ?Very high: ?? >or= 499 mg/dL Literature References: 1. Expert Panel on Integrated Guidelines for Cardiovascular Health and Risk Reduction in Children and Adolescents. Pediatrics 2011;128:S213 2. NCEP Expert Panel. Circulation 2004;110:227 Current Interpretive Data was last revised on 2017. HDL 26(L) >=40 mg/dL [facility] Comment: Interpretive Data Ages < or = 19 years ??Acceptable: ? >45 mg/dL ??Borderline low: ?? 40-45 mg/dL ??Low: ? <40 mg/dL Ages > or = 20 years ??Desirable: ?>or= 60 mg/dL ??Low: ? <40 mg/dL Literature References: 1. Expert Panel on Integrated Guidelines for Cardiovascular Health and Risk Reduction in Children and Adolescents. Pediatrics 2011;128:S213 2. NCEP Expert Panel. Circulation 2004;110:227 Current Interpretive Data was last revised on 2017. LDL, calculated See Comment <=129 [facility] Comment: Unable to calculate LDL due to elevated triglyceride. Interpretive Data Ages < or = 19 years ??Acceptable: ? <110 mg/dL ??Borderline high: ??110-129 mg/dL ??High: ?>or= 130 mg/dL Ages > or = 20 years ??Optimal: ? <100 mg/dL ??Near optimal: ?100-129 mg/dL ??Borderline high: ?? 130-159 mg/dL ??High: ?>160 mg/dL Literature References: 1. Expert Panel on Integrated Guidelines for Cardiovascular Health and Risk Reduction in Children and Adolescents. Pediatrics 2011;128:S213 2. NCEP Expert Panel. Circulation 2004;110:227 Current Interpretive Data was last revised on 2017. Non-HDL Cholesterol 183 mg/dL [facility] Comment: Interpretive Data Ages < or = 19 years ??Acceptable: ?<120 mg/dL ??Borderline high: ??120-144 mg/dL ??High: ?>145 mg/dL Ages > or = 20 years ??When triglycerides are >200 mg/dL, Non-HDL cholesterol is a secondary target of ? therapy with treatment goals that are 30 mg/dL greater than the LDL cholesterol target. ? Literature References: 1. Expert Panel on Integrated Guidelines for Cardiovascular Health and Risk Reduction in Children and Adolescents. Pediatrics 2011;128:S213 2. NCEP Expert Panel. Circulation 2004;110:227 Current Interpretive Data was last revised on 2017. Chol/HDL ratio 8 [facility] Blood 11/30/2022 12:3 2 AM CDT 11/30/2022 12:53 AM CDT us Linus Dumas III, MD LAB BLOOD ORDERABLES Final Result Performing Organization Address City/State/[facility] Co de Phone Number [facility] Department [place] [address] from Last 3 Months or Most Recently Relevant to Health Maintenance Insurance [employer] MEDICARE [id number] [place] [address] MEDICARE MEDICARE Advance Directives For more information, please contact: [phone] * Full Code (Latest Code Status on File) Date Activated Date Inactivated Comments 03/24/2023 10:36 PM 03/29/2023 7:21 PM * Full Code Date Activated Date Inactivated Comments 12/20/2022 7:34 PM 12/22/2022 5:30 PM * Full Code Date Activated Date Inactivated Comments 11/30/2022 1:45 PM 12/03/2022 6:50 PM * Full Code Date Activated Date Inactivated Comments 06/08/2021 3:52 PM 06/08/2021 9:56 PM * Full Code Date Activated Date Inactivated Comments 05/03/2021 3:09 PM 05/05/2021 12:47 AM Care Teams Nut Sorter Relationship Specialty Start Date End Date Jeff Strickland MD [address] [place] [address] PCP - General Family Medicine 04/02/18 Chan Nicholas MD [address] [place] [address] Consulting Physician Gastroenterology 11/24/18 Alan Mccall MD [address] [place] [address] Referring Physician Nephrology 11/24/18 Pepito Haro MD PhD [address] [place] [address] Consulting Physician Neurosurgery 12/03/22 Solange Guido MD [address] [place] [address] Referring Physician Cardiovascular Disease 07/23/23
--- OUTSIDE RECORDS SUMMARY | 2024-03-13 14:38 | XMS_ITS | Encounter Summary ---
Author Organization [facility] Address [facility] [place] [address] Care Team Providers Care Auger Press Operator Name Role Phone Deandre Bojorquez MD Unavailable [phone] Jeff Strickland MD Primary Care Provider [phone] Encounter Details Date Type Department Care Team (Late st Contact Info) Description 09/30/2023 Lab Requisition [facility] [address] [place] [id number] Alan Davenport MD [facility] [place] [address] Social History Tobacco Use Types Packs/Day Years [...] Info) Description 08/04/2024 11:30 AM CDT Appointment [facility] MRI [address] [place] [address] Thomas Mendoza MD [address] [facility] 2L [place] [phone] 08/04/2024 1:30 PM CDT Office Visit [facility] - Urology [address] [place] [address] Thomas Mendoza MD [address] [facility] [address] [place] [id number] documented as of this encounter Procedures Procedure Name Priority Date/Time Associated Diagnosis Comments HOLD HLA SPECIMEN Routine 09/24/2023 3:2 7 PM CDT documented in this encounter Results * HOLD HLA SPECIMEN (09/24/2023 3:27 PM CDT) Hold HLA Specimen 09/30/2023 4:32 PM CDT [facility] Comment:The Hold HLA specime n has been received into the lab and will be held for 5 years at 4 degrees. Blood BLOOD SPECIMEN / Unknown 09/24/2023 3:27 PM CDT 09/30/2023 3:27 PM CDT Alan Davenport MD LAB - BLOOD BANK ORD ERABLES [facility] ([facility]) [address] [place], [place] [id number] [place] [address] documented in this encounter Visit Diagnoses Not on filedocumented in this encounter Care Teams Auger Press Operator Relationship Specialty Start Date End Date Jeff Strickland MD [address] [place] [address] PCP - General 03/05/18 [place] [address] [address] Orthopedic Surgery 03/28/17 documented as of this encounter
--- OUTSIDE RECORDS SUMMARY | 2024-03-13 14:38 | XMS_ITS ---
Author Organization [facility] Address [address] [place] [address] Care Team Providers Care Healthcare Representative Name Role Phone Jeff Strickland MD Primary Care Provider Chan Nicholas MD Unavailable [phone] Alan Mccall MD Unavailable [phone] Pepito Haro MD PhD Unavailable [phone] Solange Guido MD Unavailable Dialysis Access Sites Type Status Location Placement Date Removal Da te Peritoneal Dialysis Catheter Mid lower abdomen Active Abdomen - Lower, Medial (Navel) Hemodialysis Cath Double Inactive Right Breast - Upper 05/01/2021 Hemodialysis Cath Double Inactive Right Breast - Upper 0 05/02/2021 11/22/2021 Procedures Procedure Name Priority Date/Time Associated Diagnosis Comments POCT HEMOGLOBIN A1C Routine 11/07/2023 1 :32 PM CDT Type 2 diabetes mellitus with chronic kidney disease on chronic dialysis, with long-term current use of insulin (HCC) EGFR STAT 08/11/2023 7:50 PM CDT LIPID PANEL STAT 11/30/2022 12:32 AM CDT from Last 3 Months or Most Recently Relevant to Health Maintenance Allergies No known active allergies Medications carvedilol [...] day with meals 06/27/19 21 Active vit C,D-Rm-oulbh-lutein- zeaxan 250-90-40-1 mg capsule Take 1 capsule [...] day as needed (nasal irrigation) Active FA-vit Oksah-X-sits-vitamin D3 (Dialyvite 800-Ultra D) 0.8-2,000 mg-unit tablet [...] needle, diabetic (Pen Needle) 31 gauge x 07/02 needle Use to inject insulin 4 times daily. 200 each 5 04/18/19 24 Active Additional Information Patient not taking.Reported on 11/07/2023 acetaminophen (TYLENOL) 325 mg tablet Take 2 tablets (650 mg total) by mouth every 6 (six) hours as needed 03/29/19 Active tiZANidine (ZANAFLEX) 4 mg tablet TAKE 1 TABLET BY MOUTH TWICE DAILY NEEDED FOR MUSCLE SPASMS Active OneTouch Ultra Test strip Use to check blood sugar 3 times daily when unable to use Dexcom 100 each 10 06/27/19 24 Active Additional Information Patient not taking.Reported on 11/07/2023 cloNIDine (CATAPRES-TTS) 0.1 mg/[address] 0.2 mg on the skin once a week 07/04/19 Active lisinopriL (PRINIVIL,ZESTRIL) 20 mg tablet Take [...] as needed for pain 30 tablet 07/29/19 Active Additional Information Patient not taking.Reported on [...] times a day 90 capsule 1 10/06/19 Active Additional Information Patient taking differently: 200 [...] warrant further PDT. - Patient returned to [facility] for ongoing care and follow up Assessment & Plan (03/09/2024 6:25 PM PLASTIC SHEETS SUPERVISOR): Vision OD trends mild improvement, though still [...] We discussed that genetic results would not private branch exchange operator. Given we have exhausted available treatment without [...] 2 weeks and have patient return to [facility] retina in 4 weeks for repeat DFEx [...] End-stage renal disease on peritoneal dialysis ( CMS/HCC) 04/24/2023 Hypertensive renal failure 04/24/2023 Secondary hyperparathyroidism [...] 03/26/2021 Assessment & Plan (03/26/2021 1:17 PM PLASTIC SHEETS SUPERVISOR): Enlarged mild sella turcica on a routine [...] units Assessment & Plan (03/26/2021 1:17 PM PLASTIC SHEETS SUPERVISOR): Chronic, uncontrolled, improving A1c today 7.7 % [...] WNL Assessment & Plan (03/26/2021 1:16 PM PLASTIC SHEETS SUPERVISOR): Pt currently on Levothyroxine 112 mcg oral [...] 11/18/2018 Assessment & Plan (01/21/2019 2:02 PM PLASTIC SHEETS SUPERVISOR): Symptomatic. Will request for esophageal manometry. Continue [...] 06/09/2018 Chronic diastolic CHF (congestive heart failure) (CMS/HCC) 05/18/2018 SHABNAM on CPAP 05/18/2018 Obesity (BMI 30-39.9) 05/18/2018 Stage 5 chronic kidney disease (CMS/HCC) 019 Hyperlipidemia associated with type 2 diabetes eboni gonzalez 12/03/2017 Assessment & Plan (10/30/2021 8:35 PM CDT): On statin therapy Tolerating well Assessment & Plan (03/26/2021 1:16 PM PLASTIC SHEETS SUPERVISOR): On statin therapy Tolerating well Last lipid [...] Presence of right artificial knee joint 03/28/19 18 History of total knee replacement 06/28/2016 Impotence of organic origin 04/09/2012 Renal cell carcinoma 04/06/2012 Overview (05/29/2017): Description: s/p right renal cryo ablation in 10/2007. s/p 05/27/2012 right robotic assisted laprascopic partial nephrectomy. 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 [id number] Immunizations Name Administration Dates Next Due Hep [...] = 0.6 oz pur e alcohol) rarely [employer] Answer Date Recorded In the past 12 months has [employer], gas, oil, or water [employer] threatened to shut off services in your [...] week 03/25/2023 How often do you attend [facility] or faith services? Never 03/25/2023 Do you belong to any clubs o r organizations such as mandaeism groups, unions, fraternal or athletic groups, or [...] place to sleep or slept in a long term (including now)? No 03/25/2023 Housing Stability Vital Sign Answer Fraknie e Recorded In the last 12 months, [...] on file Legal Sex Male 2:23 AM PLASTIC SHEETS SUPERVISOR Gender Identity Not on file Sexual Orientation [...] Mass Index 40.58 11/17/2023 11:02 AM CDT Results * POCT hemoglobin A1c (11/07/2023 1:32 PM CDT) Pathologist [facility] Hemoglobin A1C, POC 6.9 4.0 - 5.6 % Blood 11/07/2023 1:32 PM CDT Gregory Curtis MD POINT OF CARE TEST ORDERABLES Final Result * (ABNORMAL) eGFR (08/11/2023 7:50 PM CDT) Pathologist [facility] eGFR 5(L) >=60 mL/min/1. 73 m2 Comment: [...] Inclusion of Race in Diagnosing Kidney Disease, JASN 2020). The CKD-EPI equation should not be used for patients with unstable renal function and has not been validated in children and those over 70. Current interpretive data was last reviewed 2020. Testing performed by: [facility], [address] [place] [address], [place]., [address] Blood 08/11/2023 7:50 PM CDT 08/11/2023 8:05 PM CDT us Leni eCrvantes MD LAB BLOOD ORDERABLES Kenna haider Result [facility] [address] [facility] Department [place] [address] * (ABNORMAL) Lipid panel (11/30/2022 12:32 AM CDT) Pathologist [facility] Cholesterol 209(H) 30 - 199 mg/dL Comment: [...] on 2017. Triglycerides 439(H) <=149 mg/dL [facility] Comment: Interpretive Data Ages [...] revised on 2017. HDL 26(L) >=40 mg/dL [facility] Comment: Interpretive Data Ages < or = [...] on 2017. LDL, calculated See Comment <=129 [facility] Comment: Unable to calculate LDL due to [...] on 2017. Non-HDL Cholesterol 183 mg/dL [facility] Comment: Interpretive Data Ages < or = [...] revised on 2017. Chol/HDL ratio 8 [facility] Blood 11/30/2022 12:3 2 AM CDT 11/30/2022 12:53 AM CDT us Linus Dumas III, MD LAB BLOOD ORDERABLES Final Result [facility] Department [place] [address] from Last 3 Months or Most Recently Relevant to Health Maintenance
--- OUTSIDE RECORDS SUMMARY | 2024-03-13 14:38 | XMS_ITS | Encounter Summary ---
Author Organization [facility] Address [facility] [place] [address] Care Team Providers Care Industrial Methods Consultant Name Role Phone Deandre Bojorquez MD Unavailable [phone] Jeff Strickland MD Primary Care Provider [phone] Encounter Details Date Type Department Care Team (Late st Contact Info) Description 10/28/2023 Lab Requisition [facility] MAIN LAB [address] [place] [id number] Alan Davenport MD [facility] [place] [address] Social History Tobacco Use Types Packs/Day Years [...] Info) Description 08/04/2024 11:30 AM CDT Appointment [facility] MRI [address] [place] [address] Thomas Mendoza MD [address] [facility] 2L DIV [place] [phone] 08/04/2024 1:30 PM CDT Office Visit [facility] - Urology [address] [place] [address] Thomas Mendoza MD [address] [facility] 2L DIV [place] [phone] documented as of this encounter Procedures Procedure Name Priority Date/Time Associated Diagnosis Comments HOLD HLA SPECIMEN Routine 10/22/2023 3:5 0 PM CDT documented in this encounter Results * HOLD HLA SPECIMEN (10/22/2023 3:50 PM CDT) Hold HLA Specimen 10/28/2023 5:00 PM CDT [facility] ([facility]) Comment:The Hold HLA specime n has been received into the lab and will be held for 5 years at 4 degrees. Blood BLOOD SPECIMEN / Unknown 10/22/2023 3:50 PM CDT 10/28/2023 3:50 PM CDT Alan Davenport MD LAB - BLOOD BANK ORD ERABLES [facility] ([facility]) [address] [place], [place] [id number] [place] [address] documented in this encounter Visit Diagnoses Not on filedocumented in this encounter Care Teams Industrial Methods Consultant Relationship Specialty Start Date End Date Jeff Strickland MD [address] [place] [address] PCP - General 03/05/18 [place] [address] [address] Orthopedic Surgery 03/28/17 documented as of this encounter
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
--- OUTSIDE RECORDS SUMMARY | 2024-03-13 14:39 | XMS_ITS | Clinical Summary ---
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 ultrasound in one year is recommended. ACR TI-RADS recommendations TR5 (>=7 points) (risk of malignancy > 20%) >=1 cm: FNA 0.5-0.9 cm: follow-up US every year for 5 years <0.5 cm: no further evaluation TR4 (4-6 points) (risk of malignancy 5-20%) >=1.5 cm: FNA 1-1.4 cm: follow-up US in 1, 2, 3, and 5 years <1.0 cm: no further evaluation TR3 (3 points) (risk of malignancy 2-5%) >=2.5 cm: FNA 1.5-2.4 cm: follow-up US in 1, 3, and 5 years <1.5 cm: no further evaluation TR2 (2 points) and TR1 (0 points) (risk of malignancy < 2%) No FNA or follow-up US > Interpreting Provider: Lizandro Diaz MD on 05/21/2023 11:02 AM [facility]12/02/2019 FINDINGS: The bladder contour is normal. No filling defect is identified. No vesicoureteral reflux is observed. Voiding is normal with no postvoid residual. No urethral abnormality is evident. IMPRESSION: Normal bladder with no evidence of reflux or post void residual. PPD/ quant gold: negative 01/14/2022 Colonoscopy: 09/03/2021 Dental: 01/31/2022 SW: 01/01/2023 Clinical Social Work Impression: It is the impression of this social contact worker that Grace Interiano has several positive factors for Kidney transplant candidacy from a psychosocial perspective. Patient appears to have appropriate knowledge of illness. Patient has sufficient insurance coverage and stable financial situation for post transplant needs. No concerns regarding substance abuse, legal issues, or mental health needs. Patient has adequate support system and appropriate discharge plan. To Note: Patient needs an updated tox screen for this year. SW awaiting a return phone call from patient's son to verify that he is still planning to be the back up caregiver. Plan: service worker helper to provide supportive services as needed. Patient remains a reasonable candidate for transplant from a psychosocial perspective. 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 RD:01/14/2022 Transplant Nutrition Eval 01/23/2022 - No returned call from Dialysis RD. Pt was told at clinic by Txp Surgery and RN Coordinator that he needs to work on wt loss. Pt seen on 01/14/2022 - BMI: 39.4, Class II Obesity. Pt was seen in clinic and told he must lose at least 15 lbs by the Transplant Team per Krystal RN Coordinator. If pt loses to BMI of 37 or less/goal weight< 245 lbs, pt will be considered a good candidate for Txp Sx from an RD standpoint. Waist Circumference (Kidney): 46 Weight Assessment: Ht: 68 Wt: 259 lbs BMI: 39.4 Items Still Pending: US renal and f/u with Dr. Mendoza 12/06/2022, Hep A and B vaccine, Follow up Thyroid US one year 02/2023. Presence of right artificial knee joint 03/28/19 18 Encounters Date Type Department Care Team Description 03/12/2024 Lab Requisition [facility] [address] [place] [address] Alan Davenport MD 03/03/2024 1:20 PM SCHOOL CURRICULUM DEVELOPER Office Visit [facility] - Cardiology [address] [place] [phone] Maylin Cutler DO Chronic diastolic heart failure (HCC) (Primary Dx); Resistant hypertension; End-stage renal disease on peritoneal dialysis (HCC); Atherosclerosis of [place] coronary artery of [place] heart without angina pectoris; Hypertriglyceridemia ; Type 2 diabetes mellitus with other specified complication, unspecified whether terminal block assembler insulin use (HCC) 03/03/2024 Travel 02/04/2024 Lab Requisition [facility] [address] [place] [address] Alan Davenport MD 01/08/2024 Refill [facility] - Cardiology [address] [place] [phone] Lorna Roca, DETAIL MAKER AND FITTER REFILL from Last 3 Months Immunizations Name Administration Dates Next Due Covid Shopping Mail primary monoval ent 12+ yr 0.3mL Purple cap 04/20/2020,03/20/2020 FLU VACCINE QUAD IIV4 PF ID 01/17/2020 FLU VACCINE TRI IIV3 SPLIT P F IM (FLUVIRIN) 04/09/2016 HEP B VACCINE, ADULT 3 DOSE 03/26/2021,0 08/17/2020,03/21/2020,2020,01/27/2020 INFLUENZA VACCINE 01/17/2020,04/10/2016 INFLUENZA VACCINE, QUADR. (F LUZONE; FLULAVAL; FLUARIX; AFLURIA QUADRIVALENT; 6MO+), 0.5 ML (IIV4) 03/30/2018 PNEUMOCOCCAL PCV VACCINE 08/09/2020,02/09/2020 Pneumococcal Pcv13 Conj 02/09/2020 TDAP (7yrs+) 04/10/2016 iNFLUENZA VACCINE, RECOM-OLVERA, QUADR. (FLUBLOCK QUADRIVALENT; 18Y+) (RIV4) 01/17/2020 Family History Medical History Relation Name Comments Cancer - Colon Father Aneurysm, Brain Mother Cancer Sister Relation Name Status Comments Brother 1 Alive Brother 2 Alive Father (Age 50's) Mother (Age 50's) Sister Alive Son 1 Alive Son 2 Alive Social History Tobacco Use Types Packs/Day Years [...] Orientation Straight 07/02/2021 2: 37 PM CDT Last Filed Vital Signs Vital Sign Reading Time Taken Comments Blood Pressure 134/74 03/03/2024 12:47 PM SCHOOL CURRICULUM DEVELOPER Pulse 65 03/03/2024 12:47 PM SCHOOL CURRICULUM DEVELOPER Temperature 36.2 ??C (97.2 ??F) 08/06/2023 1:56 PM CD T Respiratory Rate 18 01/14/2022 1:01 PM SCHOOL CURRICULUM DEVELOPER Oxygen Saturation 96% 03/03/2024 12:47 PM SCHOOL CURRICULUM DEVELOPER Inhaled Oxygen Concentration - - Weight 119.7 kg (264 lb) 03/03/2024 12:47 PM SCHOOL CURRICULUM DEVELOPER Height 172.7 cm (5' 8 ) 03/03/2024 12:47 PM SCHOOL CURRICULUM DEVELOPER Body Mass Index 40.14 03/03/2024 12:47 PM SCHOOL CURRICULUM DEVELOPER Plan of Treatment Upcoming Encounters Date Type Department Care Team (Late st Contact Info) Description 08/04/2024 11:30 AM CDT Appointment [facility] [address] [place] [address] Thomas Mendoza MD [address] [place] [address] [address] [place] [phone] 08/04/2024 1:30 PM CDT Office Visit [facility] - Urology [address] [place] [phone] Thomas Mendoza MD [address] [place] [address] [address] [place] [phone] Health Maintenance Due Date Last Done Comments COLOGUARD (AGES 45-75) - COLON CA SCREENING 1955 COLON MONITORING 1955 COLONOSCOPY - COLON CA SCREENING 1956 CT COLONOGRAPHY - COLON CA SCREENING 1955 Colorectal Cancer Screening 1955 FIT - COLON CA SCREENING 1955 FLEX SIG - COLON CA SCREENING 1955 ZOSTER VACCINE (1 of 2) 01/19/2006 Respiratory Syncytial Virus (RSV) Vaccine Pt: or over 60 yrs (1 - Risk 60-74 years 1-dose series) 2016 PNEUMOCOCCAL VACCINE 50+ (2 of 2 - PPSV23) 10/04/2020 08/09/2020, 02/09/2020, 02/09/2020 HEPATITIS B VACCINE (6 of 6 - Risk Dialysis Recombivax 3-dose series) 03/26/2022 03/26/2021, 08/17/2020, 03/21/2020, Additional history exists COVID-19 VACCINE ( season) 2023 05/05/2020, 04/20/2020, 03/20/2020 INFLUENZA VACCINE (#1) 2023 , 10/29/2020, 01/17/2020, Additional history exists DIABETES-FOOT EXAM WITH MONOFILAMENT 01/12/2024 DIABETES-HGB A1C 02/06/2024 11/07/2023, 09/2023, 03/25/2023, Additional history exists DEPRESSION SCREENING 02/18/2024 MEDICARE AWV ? CALENDAR YEAR 2024 DIABETES RETINOPATHY SCREENING 10/07/2025 10/08/2023 DTAP/TDAP/TD VACCINES (2 - Td or Tdap) 04/10/2026 04/10/2016 HEPATITIS C SCREENING Completed 01/14/2022, 020 HIB VACCINE Aged Out No longer eligi ble based on patient's age to complete this topic HPV VACCINE Aged Out No longer eligi ble based on patient's age to complete this topic MENINGOCOCCAL (Group B) VACCINE Aged Out No longer eligible based on patient's age to complete this topic MENINGOCOCCAL VACCINE Aged Out No reilly eusebia eligible based on patient's age to complete this topic Medical Devices Implanted Type Area Stage Technician Device Identifier Shelf Expiration Date Model / Serial / Lot Sys Cor Stent Xience Srr 3mm 18mm Rap Ex Implanted:Qty: 1 on 08/04/2020 by Javier Lan MD at [facility] Stent Coronary [employer] 06/19/2022 [id number] Description:STENT Sys Cor Stent Xience Srr 3mm 8mm Rap Ex Implanted:Qty: 1 on 08/04/2020 by Javier Lan MD at [facility] Stent Coronary [employer] 09/03/2021 [id number] Description:stent Procedures Procedure Name Priority Date/Time Associated Diagnosis Comments HOLD HLA SPECIMEN Routine 03/05/2024 1:4 0 PM SCHOOL CURRICULUM DEVELOPER HOLD HLA SPECIMEN Routine 01/27/2024 3:2 3 PM SCHOOL CURRICULUM DEVELOPER HEPATITIS C ANTIBODY Routine 01/14/2022 9:54 AM SCHOOL CURRICULUM DEVELOPER Pre-transplant evaluation for kidney transplant HEMOGLOBIN A1C Routine 01/14/2022 9:54 AM SCHOOL CURRICULUM DEVELOPER Pre-transplant evaluation for kidney transplant from Last 3 Months or Most Recently Relevant to Health Maintenance Results * HOLD HLA SPECIMEN (03/05/2024 1:40 PM SCHOOL CURRICULUM DEVELOPER) Only the most recent of2 resultswithin the time period is included. Hold HLA Specimen 03/12/2024 3:00 PM SCHOOL CURRICULUM DEVELOPER [facility]) Comment:The Hold HLA specime n has been received into the lab and will be held for 5 years at 4 degrees. Blood BLOOD SPECIMEN / Unknown 03/05/2024 1:40 PM SCHOOL CURRICULUM DEVELOPER 03/12/2024 1:40 PM SCHOOL CURRICULUM DEVELOPER Alan Davenport MD LAB - BLOOD BANK ORD ERABLES [facility]) [address] [place] [address] * (ABNORMAL) HEMOGLOBIN A1C (01/14/2022 9:54 AM SCHOOL CURRICULUM DEVELOPER) Hemoglobin A1c 8.7(H) <=5.6 % 01/14/2022 1:10 PM SCHOOL CURRICULUM DEVELOPER [facility] Estimated Average Glucose 203 mg/dL 01/14/2022 1:10 PM [facility] Comment: HbA1c Interpretation: Normal : < 5.7% Pre-diabetes: 5.7-6.4% Diabetes: Equal to or greater than 6.5% Test results diagnostic of diabetes should be repeated for confirmation. Treatment target values recommended by ADA and other clinical organizations should be used to evaluate metabolic control in patients. Reference: [place] Diabetes Association, Standards of Care in Diabetes -2020 In patients 70 years and older consider HbA1c target range of 7.0-7.5% (Reference: [employer] et al. JAMDA. 2012) The Sebia assay for the measurement of HbA1c is a National Glycohemoglobin Standardization Program (NGSP) certified method. Blood BLOOD SPECIMEN / Unknown Lab Venipuncture / Unknown 01/14/2022 9:54 AM SCHOOL CURRICULUM DEVELOPER 01/14/2022 11:00 AM SCHOOL CURRICULUM DEVELOPER Marbin Flores MD LAB - CHEMISTRY [facility] [address] [place] [address], [place] [phone] * HEPATITIS C ANTIBODY (01/14/2022 9:54 AM SCHOOL CURRICULUM DEVELOPER) Hepatitis C Antibody Non-react sylvie Non-reac tive 01/14/2022 11:52 AM SCHOOL CURRICULUM DEVELOPER [facility] Comment:Hepatitis C Antibody screen indicates no serologic evidence of past or current infection with Hepatitis C Virus. Patients with unexplained liver disease who are immunocompromised or suspected of having acute Hepatitis C infection may benefit from Nucleic Acid Test (MARLON) for Hepatitis C Viral RNA to confirm Hepatitis C status. Blood BLOOD SPECIMEN / Unknown Lab Venipuncture / Unknown 01/14/2022 9:54 AM SCHOOL CURRICULUM DEVELOPER 01/14/2022 10:48 AM SCHOOL CURRICULUM DEVELOPER Marbin Flores MD LAB - CHEMISTRY [facility] [address] [place] [address], [facility] [phone] from Last 3 Months or Most Recently Relevant to Health Maintenance Advance Directives * Full Code (Latest Code Status on File) Date Activated Date Inactivated Comments 08/04/2020 11:48 AM 08/08/2020 9:40 AM Care Teams Interrelated Special Education Teacher Relationship Specialty Start Date End Date Jeff Strickland MD [address] [place] [address] PCP - General 03/05/18 [place] [address] [place] [id number] Orthopedic Surgery 03/28/17
--- OUTSIDE RECORDS SUMMARY | 2024-03-13 14:39 | XMS_ITS | Encounter Summary ---
Author Organization [facility] Address [facility] [place] [address] Care Team Providers Care Fact Checker Name Role Phone Deandre Bojorquez MD Unavailable [phone] Jeff Strickland MD Primary Care Provider [phone] Encounter Details Date Type Department Care Team (Late st Contact Info) Description 02/07/2023 Lab Requisition [facility] [address] [place] [phone] Alan Davenport MD [facility] [place] [address] Social History Tobacco Use Types Packs/Day Years [...] Info) Description 08/04/2024 11:30 AM CDT Appointment [facility] MRI [address] [place] [address] Thomas Mendoza MD [address] [facility] 2[address] [place] [phone] 08/04/2024 1:30 PM CDT Office Visit [facility] - Urology [address] [place] [address] Thomas Mendoza MD [address] [facility] 2L [place] [phone] documented as of this encounter Procedures Procedure Name Priority Date/Time Associated Diagnosis Comments HOLD HLA SPECIMEN Routine 2023 7:5 8 AM LEAD ASSEMBLER documented in this encounter Results * HOLD HLA SPECIMEN (2023 7:58 AM LEAD ASSEMBLER) Hold HLA Specimen 02/07/2023 9:01 AM LEAD ASSEMBLER [facility] ([facility]) Comment:The Hold HLA specime n has been received into the lab and will be held for 5 years at 4 degrees. Blood BLOOD SPECIMEN / Unknown 2023 7:58 AM LEAD ASSEMBLER 02/07/2023 7:59 AM LEAD ASSEMBLER Alan Davenport MD LAB - BLOOD BANK ORD ERABLES [facility] ([employer]) [address] documented in this encounter Visit Diagnoses Not on filedocumented in this encounter Care Teams Fact Checker Relationship Specialty Start Date End Date Jeff Strickland MD [address] [place] [address] PCP - General 03/05/18 [place] [address] [facility] [address] [place] [id number] Orthopedic Surgery 03/28/17 documented as of this encounter
--- OUTSIDE RECORDS SUMMARY | 2024-03-13 14:39 | XMS_ITS | Clinical Summary ---
Author Organization [facility] Address [address], [place] [address] Phone Care Team Providers Care Policyholder Information Clerk Name Role Phone Jeff Strickland MD Primary Care Provider [phone] Allergies No known active allergies Medications Medication Sig Dispensed Refills Start Date End Date Status levothyroxine (SYNTHROID, LEVOTHROID) 112 MCG tablet 1 daily 0 12/05/2017 Active insulin lispro (HUMALOG DEVYN KWIKPEN) 100 UNIT/ML injection as dir 0 12/05/2017 Active cholecalciferol (VITAMIN D-3) 2000 units capsule 1 daily 0 12/05/2017 Active Multiple Vitamins-Minerals (MULTIVITAMIN ADULT) tablet 1 daily 0 12/05/2017 Active insulin glargine (LANTUS SOLOSTAR) 100 UNIT/ML injection as dir 0 12/05/2017 Active TRULICITY 0.75 MG/0.5ML solution pen-injector 2 06/26/2018 Active omeprazole (PriLOSEC) [address] capsule TK ONE C PO BID 01/25/2019 Active minoxidil (LONITEN) 2.5 MG tablet Take 1 tablet (2.5 mg total) by mouth 2 (two) times a day 60 tablet 11 07/19/2019 Active aspirin (Sami Low Dose) 81 MG chewable tablet daily Active furosemide (LASIX) 40 MG tablet Take 40 mg by mouth 2 (two) times a day Active hydrALAZINE (APRESOLINE) 25 MG tablet Take 1 tablet (25 mg total) by mouth 3 (three) times a day 90 tablet 11 09/14/2019 Active B-D UF III MINI PEN NEEDLES 31G X 5 MM misc INJECT FIVE TIMES DAILY UTD 09/07/2019 Active metOLazone (ZAROXOLYN) 5 MG tablet Take 1 tablet (5 mg total) by mouth 2 (two) times a week 24 tablet 3 11/29/2019 Active Continuous Blood Gluc Svp Business Development (FreeStyle Em [place]) device 1 each daily 12/01/2019 Active Continuous Blood Gluc Sensor (FreeStyle Em Sensor System) misc 1 each once every 2 weeks 12/01/2019 Active Lancets (OneTouch Delica Plus [id number]) misc OneTouch Delica Plus Lancet 33 gauge Active atorvastatin (LIPITOR) 80 MG tablet TK 1 T PO QD 11/26/2019 Active carvedilol (COREG) 6.25 MG tablet Take 12.5 mg by mouth 2 times daily Active sodium bicarbonate 650 MG tablet TAKE 1 TABLET(650 MG) BY MOUTH TWICE DAILY 180 tablet 3 05/20/2021 Active Active Problems Problem Noted Date Diagnosed Date Patient encounter status 11/10/2019 Overview (12/17/2019): Kendall Cral 1955 Referring Rod Puller: Alan Mccall Dialysis Info: NOD GFR 13 Type: Time: (Not currently on dialysis) days Blood Type: O NEG Body mass index is 37.36 kg/m??. ALERTS Multimedia Instructional Designer: needs to establish Past Medical History: Diagnosis Date ? ? Arthropathy RA. Dr Strickland manages. ? ? CHF (congestive heart failure) 2 yrs ago [facility] Machine Operator is Dr. Becerra in [place]. ? ? CKD (chronic kidney disease), stage V ? ? Community acquired pneumonia 2018 [facility] hospitalized. ? ? Diabetes mellitus 20 years. Lantus pen. ? ? Esophageal reflux takes med ? ? Hypercholesteremia 5-10 yrs meds ? ? Hypertension takes meds ? ? Hypothyroidism meds 20 years ? ? Kidney stones 5-6 years ago had 2 in the same year. ? ? Malignancy right kidney 2012 ? ? Obstructive sleep apnea 3 years. [facility]. [place] remember doctors name ? ? Renal cell carcinoma [address] [place] Pruett surgeon. followed up every 6 [...] file Gets together: Not on file Attends jain service: Not on file Active member of [...] Impression: It is the impression of this nursing home social worker that Kendall Carl has several positive factors for Kidney transplant candidacy from a psychosocial perspective. Patient appears to have appropriate knowledge of illness. Patient has sufficient insurance coverage and stable financial situation for post transplant needs. No concerns regarding substance abuse, legal issues, or mental health needs. Patient has adequate support system and appropriate discharge plan. ?? Plan: refuse and recycling worker to provide supportive services as needed. Patient appears to be a reasonable candidate for transplant from a psychosocial perspective. ?? -Post transplant arrangement forms are needed prior to being listed. -Updated toxicology results needed, per protocol Psychiatric Consult Recommended: No ?? Transplant Office Nurse: Joy Tam LCSW ?? RD: 11/09/2019 ?? [...] use my fitness pal or my food assistant track coach) - Consume no more than 2000 calories a day ?? E-mailed pt's a 2000 calorie, CKD meal plan. Items Still Pending: Clinic, colonoscopy Stage 5 chronic kidney disease 05/18/2018 Type 2 diabetes mellitus without complication Essential (primary) hypertension 12/03/2017 Hyperlipidemia 12/03/2017 Obstructive sleep apnea 12/03/2017 Renal cell carcinoma 04/06/2012 Overview (11/11/2018): Overview: Description: s/p right renal cryo ablation in 10/2007. s/p 05/27/2012 right robotic assisted laprascopic partial nephrectomy. 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 [id number] Immunizations Name Administration Dates Next Due Influenza (IM) Preservative Free 04/09/2016 Influenza TIV (IM) 02/22/2019(Deferred: Patient Refused) Influenza, Injectable, Quadr ivalent, Preservative Free 03/30/2018 Influenza, Unspecified 04/10/2016 Tdap 04/10/2016 Family History Medical History Relation Comments Kidney disease Neg Hx Social History Tobacco Use Types Packs/Day Years Used Date Smoking Tobacco: Never Smokeless Tobacco: Never Alcohol Use Standard Drinks/Week Comments Yes 0 (1 standard drink = 0.6 oz pur e alcohol) rare Sex and Gender Information Value Date Recorded Sex Assigned at Not on file Gender Identity Not on file Sexual Orientation Not on file Last Filed Vital Signs Vital Sign Reading Time Taken Comments Blood Pressure 138/80 10/18/2019 3:10 PM CDT Pulse 84 10/18/2019 3:10 PM CDT Temperature 35.4 ??C (95.8 ??F) 10/18/2019 3:10 PM CD T Respiratory Rate - - Oxygen Saturation - - Inhaled Oxygen Concentration - - Weight 117 kg (259 lb) 10/18/2019 3:10 PM CDT Height 175.3 cm (5' 9 ) 10/18/2019 3:10 PM CDT Body Mass Index 38.25 10/18/2019 3:10 PM CDT Plan of Treatment Health Maintenance Due Date Last Done Comments Pneumococcal PPSV23/PCV13 65 + Years / Low and Medium Risk (1 of 4 - PCV) 01/19/2021 Influenza Vaccine (#1) 2023 9, 04/10/2016, 04/09/2016 Care Teams Policyholder Information Clerk Relationship Specialty Start Date End Date Jeff Strickland MD [address] [facility] [address] [place] [address] PCP - General Internal Medicine 07/15/18
--- OUTSIDE RECORDS SUMMARY | 2024-03-13 14:39 | XMS_ITS | Patient Health Record ---
Author Organization [facility] Address [address] [place] [address] [place] [address] Care Team Providers Care Watch Commander Name Role Phone DONNIE WOOD MD Primary Care Provider Unavaila julien Sergio Rivera Unavailable [phone] ALLERGIES No Known Allergies REASON FOR REFERRAL No Information MEDICATIONS Medication SIG (Take, Route, Frequency, Duration) Notes Start Date End Date Status cloNIDine HCl 0.1 MG/24HR 1 patch to ski n Transdermal for 30 day(s) Active Furosemide 80 MG 1 tablet Orally Once a day for 30 day(s) Active NovoLOG FlexPen 100 UNIT/ML as directed Subcutaneous Active HYDROcodone-Acetaminophen 5-325 MG 1 tablet as needed Orally every 6 hrs Active Fenofibrate 145 MG 1 tablet Orally Once a day for 30 day(s) Active metOLazone 5 MG TAKE 1 TABLET BY BRUCE TH DAILY Oral for 30 Active Metoclopramide HCl 10 MG 1 tablet before meals Orally Twice a day for 30 day(s) Active Aspirin 81 MG 1 tablet Orally Once a day Active Lansoprazole 30 MG 1 capsule 1/2 to 1 h our before morning meal Orally Once a day for 30 day(s) Active Atorvastatin Calcium 80 MG 1 tablet Oral ly Once a day Active PreserVision AREDS - as directed Orally Active Basaglar KwikPen 100 UNIT/ML as directed Subcutaneous Act sylvie Dialyvite 800 0.8 MG 1 tablet Orally Onc e a day for 30 day(s) Active hydrALAZINE HCl 10 MG 1 tablet with food Orally Three times a day Active Tadalafil 5 MG 1 tablet as needed O rally Once a day for 30 day(s) Active Lisinopril 20 MG 1 tablet Orally Once a day for 30 day(s) Active Tylenol PM Extra Strength 500-25 MG 1 tablet at bedtime as needed Orally Once a day for 30 day(s) Active Levothyroxine Sodium 112 MCG 1 tablet in the morning on an empty stomach Orally Once a day Active Vitamin D3 125 MCG (5000 UT) 1 capsule Orally Once a day for 30 day(s) Active LORazepam 0.5 MG TAKE 1 TABLET BY BRUCE TH AT BEDTIME NEEDED FOR ANXIETY Oral for 30 Active Gabapentin 300 MG 1 capsule Orally Thr ee a day Active Carvedilol 25 MG 1 tablet with food O rally Twice a day for 30 day(s) Active dilTIAZem HCl ER 120 MG TAKE 1 CAPSULE B Y MOUTH TWICE DAILY Oral for 90 Active SOCIAL HISTORY Sex Assigned At : Social History Observation Description Sex Assigned At Unknown PROBLEMS Problem Type ICD Code Onset Dates Problem Status W/U Status Risk SNOMED Code Notes Problem Type 2 diabetes mellitus with diabetic neuropathy, unspecified (E11.40) Active confirmed Diabetic peripheral neuropathy associated with type 2 diabetes mellitus (9045813214472) Problem Lesion of femoral nerve, 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) Active confirmed Problem Chronic pain syndrome (G89.4) Active confirmed Chronic joan n syndrome (481822111) Problem Primary osteoarthritis, 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) Active confirmed Localized, primary osteoarthritis of the shoulder region (301447157) Problem Pain in left hip (M25.552) Active confirmed Pain of left hi p joint (finding) (510424792622595) Problem Spondylosis without myelopathy or radiculopathy, lumbar region (M47.816) Active confirmed Lumbosacral spondylosis without myelopathy (89342008) Problem Other intervertebral disc degeneration, lumbar region (M51.36) Active confirmed Degeneration of lumbar intervertebral disc (24752305) Problem Radiculopathy, lumbar region (M54.16) Active confirmed Lumbar radiculopathy (773222156) Problem Radiculopathy, lumbosacral region (M54.17) Active confirmed Lumbosacral radiculopathy (1755904) Problem Osseous stenosis of neural canal of lumbar region (M99.33) Active confirmed Spinal stenosis of lumbar region (86411577) Problem [facility] (current) use of anticoagulants (Z79.01) Active confirmed Long-term curre nt use of anticoagulant (259784404) Problem Other intervertebral disc degeneration, lumbar region with discogenic back pain and lower extremity pain (M51.362) Active confirmed VITAL SIGNS Heart Rate 59 /min 03/03/2024 Respiratory Rate 18 /min 03/03/2024 Blood pressure diastolic 62 mm Hg 03/03/2024 Height 5 ft 9 in in 03/03/2024 Blood pressure systolic 112 mm Hg 03/03/2024 Weight 229 lbs 03/03/2024 BMI 33.81 kg/m2 03/03/2024 Encounters Encounter Location Date Provider Diagnosis [facility] [address] [place] [phone] 05/08/2023 Sergio Stynowick Radiculopathy, lumba r region M54.16 ; Other intervertebral disc degeneration, lumbar region M51.36 ; 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 ; Spondylosis without myelopathy or radiculopathy, lumbar region M47.816 and [facility] (current) use of anticoagulants Z79.01 [facility] [address] [place] [phone] 09/29/2023 Sergio Stynowick Radiculopathy, lumba r region M54.16 ; Other chest pain R07.89 ; Other intervertebral disc degeneration, lumbar region M51.36 ; 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 ; Spondylosis without myelopathy or radiculopathy, lumbar region M47.816 and [employer] (current) use of anticoagulants Z79.01 [facility] [address] [place] [address] 01/12/2024 Sergio Stynowick Radiculopathy, lumba r region M54.16 ; Radiculopathy, lumbosacral region M54.17 ; Other chest pain R07.89 ; Other intervertebral disc degeneration, lumbar region M51.36 ; 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 ; Spondylosis without myelopathy or radiculopathy, lumbar region M47.816 and [facility] (current) use of anticoagulants Z79.01 [facility] [address] [place] [phone] 01/19/2024 Sergio Stynowick Radiculopathy, lumba r region M54.16 ; Other intervertebral disc degeneration, lumbar region with discogenic back pain and lower extremity pain M51.362 and 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 [facility] [address] [place] [phone] 02/03/2024 Sergio Stynowick Other chest pain R07.89 ; Pain in left knee M25.562 ; Radiculopathy, lumbar region M54.16 ; Other intervertebral disc degeneration, lumbar region M51.36 ; 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 ; Spondylosis without myelopathy or radiculopathy, lumbar region M47.816 and [employer] [employer] [facility] (current) use of anticoagulants Z79.01 [facility] [address] [place] [phone] 03/03/2024 Sergio Stynowick Pain in left knee M25.562 ; Primary osteoarthritis, unspecified shoulder M19.019 ; Other chest pain R07.89 ; Radiculopathy, lumbar region M54.16 ; Other intervertebral disc degeneration, lumbar region M51.36 ; 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 ; Spondylosis without myelopathy or radiculopathy, lumbar region M47.816 ; [facility] (current) use of anticoagulants Z79.01 ; Pain in right shoulder M25.511 and Pain in left shoulder M25.512 [facility] [address] [place] [phone] 03/08/2024 Sergio Stynowick Primary osteoarthritis, unspecified shoulder M19.019 ASSESSMENTS Encounter Date Diagnosis Assessment Notes Treatment Notes Treatment Clinical Notes 05/08/2023 Other intervertebral disc degeneration, lumbar region (ICD-10 - M51.36) 05/08/2023 Radiculopathy, lumbar region (ICD-10 - M54.16) 09/29/2023 Radiculopathy, lumbar region (ICD-10 - M54.16) 09/29/2023 Other chest pain (ICD-10 - R07.89) Recommended patient follow up with his surgeon, to ensure that his hardware/sternall fixation has not failed. Based on information provided from the patient. If there is no issue with the above mentioned hardware. The patient may possibly benefit from intercostal nerve blocks. Instructed patient to follow-up with his surgeon and return to the office in 1 month if there is no issue with hardware mentioned above. Patient verbalized understanding 01/12/2024 Radiculopathy, lumbar region (ICD-10 - M54.16) The results of the patient's recent lumbar spine MRI were discussed with the patient using an anatomical model and layman's terminology. All questions were answered. Schedule a bilateral L4-5 transforaminal epidural steroid injection. The risks of this procedure [...] is agreeable to proceeding at this time. 01/12/2024 Radiculopathy, lumbosacral region (ICD-10 - M54.17) 01/19/2024 Radiculopathy, lumbar region (ICD-10 - M54.16) The pt. was given an order for PT at Dr. Gallagher's office. 01/19/2024 Other intervertebral disc degeneration, lumbar region with discogenic back pain and lower extremity pain (ICD-10 - M51.362) 02/03/2024 Pain in left knee (ICD-10 - [...] for further evaluation with Dr. Myers 02/03/2024 Other chest pain (ICD-10 - R07.89) 03/03/2024 Primary osteoarthritis, unspecified shoulder (ICD-10 - [...] agreeable to proceeding at this time. 03/03/2024 Pain in left knee (ICD-10 - M25.562) 03/08/2024 Primary osteoarthritis, unspecified shoulder (ICD-10 - M19.019) 03/03/2024 Other chest pain (ICD-10 - R07.89) 02/03/2024 Radiculopathy, lumbar region (ICD-10 - M54.16) 01/19/2024 Osseous stenosis of neural canal of lumbar region (ICD-10 - M99.33) 01/12/2024 Other chest pain (ICD-10 - R07.89) 09/29/2023 Other intervertebral disc degeneration, lumbar region (ICD-10 - M51.36) 05/08/2023 Osseous stenosis of neural canal of lumbar region (ICD-10 - M99.33) 05/08/2023 Spondylosis without myelopathy or radiculopathy, lumbar region (ICD-10 - M47.816) 09/29/2023 Osseous stenosis of neural canal of lumbar region (ICD-10 - M99.33) 01/12/2024 Other intervertebral disc degeneration, lumbar region (ICD-10 - M51.36) 02/03/2024 Other intervertebral disc degeneration, lumbar region (ICD-10 - M51.36) 03/03/2024 Radiculopathy, lumbar region (ICD-10 - M54.16) 03/03/2024 Other intervertebral disc degeneration, lumbar region (ICD-10 - M51.36) 01/12/2024 Osseous stenosis of neural canal of lumbar region (ICD-10 - M99.33) 02/03/2024 Osseous stenosis of neural canal of lumbar region (ICD-10 - M99.33) 05/08/2023 [facility] (current) use of anticoagulants (ICD-10 - Z79.01) 09/29/2023 Spondylosis without myelopathy or radiculopathy, lumbar region (ICD-10 - M47.816) 09/29/2023 [facility] (current) use of anticoagulants (ICD-10 - Z79.01) 01/12/2024 Spondylosis without myelopathy or radiculopathy, lumbar region (ICD-10 - M47.816) 02/03/2024 Spondylosis without myelopathy or radiculopathy, lumbar region (ICD-10 - M47.816) 03/03/2024 Osseous stenosis of neural canal of lumbar region (ICD-10 - M99.33) 01/12/2024 [facility] (current) use of anticoagulants (ICD-10 - Z79.01) The patient was instructed to discontinue aspirin for 6 days prior to the procedure. I made the patient aware that he will be at an increased risk for a thromboembolic event during this time and he is willing to accept this risk. The patient was instructed to notify his primary care physician and/or foreign law consultant to obtain clearance prior to discontinuing this medication. 02/03/2024 [facility] (current) use of anticoagulants (ICD-10 - Z79.01) 03/03/2024 Spondylosis without myelopathy or radiculopathy, lumbar region (ICD-10 - M47.816) 03/03/2024 [facility] (current) use of anticoagulants (ICD-10 - Z79.01) 03/03/2024 Pain in right shoulder (ICD-10 - M25.511) 03/03/2024 Pain in left shoulder (ICD-10 - M25.512) 05/08/2023 Other The above-named patient was evaluated in [...] occurred. This note was dictated by KELSIE Chakraborty 09/29/2023 Other The above-named patient was evaluated in [...] occurred. This note was dictated by KELSIE Chakraborty 01/12/2024 Other The above-named patient was evaluated in [...] with Patient and Medical Decision Makin minutes 02/03/2024 Other The above-named patient was evaluated [...] with Patient and Medical Decision Makin minutes 03/03/2024 Other The above-named patient was evaluated [...] Medical Decision Makin minutes PLAN OF TREATMENT Pending Test Test Name Order Date MRI : Knee, left 02/03/2024 X ray : Hip, left 09/28/2020 MRI : Lumbar Spine without contrast (721 [id number]) 09/28/2020 XRAY : Shoulder LEFT 03/03/2024 xray right shoulder 03/03/2024 Insurance Providers Payer Name Payer Address Payer Phone Subscriber Number Group Number Insured Name Patient Relationship to Insured Coverage Start Date Coverage End Date [employer] MEDICARE [address] [facility] [place] [phone] [id number] GRACE INTERIANO Self - patient is the insured MEDICAL (GENERAL) HISTORY Medical History History ICD Code Hypertension Hypothyroidism Diabetes type 2 Gastroesophageal reflux disease (GERD) Renal cell cancer Chronic kidney disease stage 4 Sleep apnea CHF Surgical History Surgery Date(Month/Year) Right total knee arthroplasty 08/2015 Cholecystectomy Hernia repair 2019 Cardiac stent 07/2020
--- OUTSIDE RECORDS SUMMARY | 2024-03-13 14:39 | XMS_ITS | Encounter Summary ---
Author Organization [facility] Address [address] [place] [address] Phone Care Team Providers Care Dividend Deposit Entry Clerk Name Role Phone Jeff Strickland MD Primary Care Provider Chan Nicholas MD Unavailable [phone] Alan Mccall MD Unavailable [phone] Lorna Lantigua MD Unavailable [phone] Juliette Saavge RN Unavailable Pepito Haro MD PhD Unavailable Solange Guido MD Unavailable Encounter Details Date Type Department Care Team (Late st Contact Info) Description 05/02/2021 Ophth Exam [facility] [address] [place] [address] 1[address] [place] [phone] Corina Ventura MD PhD [id number] [address] Social History Tobacco Use Types Packs/Day Years Used Date Smoking Tobacco: Never Smokeless Tobacco: Never Alcohol Use Standard Drinks/Week Comments Yes 0 (1 standard drink = 0.6 oz pur e alcohol) rarely AUDIT-C Answer Date Recorded Q1: How often do you have a drink containing alc ohol? Monthly or less 10/09/2020 Q2: How many drinks containi ng alcohol do you have on a typical day when you are drinking? 1 or 2 10/09/2020 Q3: How often do you have si x or more drinks on one occasion? 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 difficile Comment:11/26/2021 IP Review: per current RN, no diarrhea in the past 48 hours, OK to come off of C.dif precautions. Le Cabrera RN 06/12/2021 06/12/2021 7:51 AM CDT COVID: Suspected 03/24/2023 03/24/2023 03/24/2023 5:45 PM COMPUTER SYSTEMS SECURITY ADMINISTRATOR COVID19 03/24/2023 03/24/2023 04/08/2023 3:06 AM COMPUTER SYSTEMS SECURITY ADMINISTRATOR COVID: Recovered Comment:Added based on recent COVID infection. 04/08/2023 04/10/2023 07/07/2023 3:06 AM C DT documented as of this encounter Eye Exam Visual Acuity Right eye Left eye Near cc 20/400 ph 20/200 20/30 phni Tonometry (Tonopen, 9:55 AM) Right eye Left eye Pressure 15 15 Pupils Dark Light Shape React APD Right eye 4 2.5 Round Brisk None Left eye 4 2.5 Round Brisk None Visual Lehman Right eye Left eye Full Full Extraocular Movement Right eye Left eye Full Full Dilation Both eyes: Cyclopentolate, 1 .0% Mydriacyl, 2.5% Phenylephrine @ 9:55 AM Color Right eye Left eye Ishihara 02/28 01/28 External Exam Right eye Left eye External Normal Normal Slit Lamp Exam Right eye Left eye Lids/Lashes Normal Normal Conjunctiva/Sclera Temporal pterygium, Inferotem poral JERMAINE Temporal pterygium Cornea Clear Clear Anterior Chamber Deep and quiet Deep and quiet Iris Round and reactive, no NVI Round and reactive, no NVI Lens NSC PCIOL Vitreous Normal Normal Fundus Exam Right eye Left eye Disc ?trace temporal pallor ?trace te mporal pallor C/D Ratio 0.4 0.4 Macula Edema extending nehemiah g the superior >> inferior arcade Pale area streak temporal to the disc Vessels A few flame hemorrha ges along superior and inferior arcade Normal Periphery Normal Normal Care Teams Dividend Deposit Entry Clerk Relationship Specialty Start Date End Date Jeff Strickland MD [address] [place] [address] PCP - General Family Medicine 04/02/18 Chan Nicholas MD [address] [place] [address] Consulting Physician Gastroenterology 11/24/18 Alan Mccall MD [address] [place] [address] Referring Physician Nephrology 11/24/18 Lorna Lantigua MD [address] [place] [address] Consulting Physician Cardiology 11/24/18 07/22/23 Juliette Savage, RN [address] [place] [address] Nurse Navigator 06/04/21 03/14/22 Pepito Haro MD PhD [address] [place] [address] Consulting Physician Neurosurgery 12/03/22 Solange Guido MD [address] [facility] [address] [place] [address] Referring Physician Cardiovascular Disease 07/23/23 documented as of this encounter
--- OUTSIDE RECORDS SUMMARY | 2024-03-13 14:39 | XMS_ITS | CONTINUITY OF CARE DOCUMENT ---
Author Name sally zavala Address Unknown Organization [facility] Address [address] [place] [address] Phone [phone] Care Team Providers Care Flaring Machine Operator Name Role Phone Jason Becerra MD Unavailable DONNIE WOOD MD Unavailable [phone] DONNIE WOOD MD Unavailable PROBLEMS Condition Status Date Provider Notes Cardiology examination active Jason Becerra MD Diabetes, Type 2 active ? Jason Becerra MD Hyperlipidemia active ? Jason Becerra MD Hypertension active ? Jason Becerra MD Diastolic heart failure active Jason cooney MD Edema active Jason Becerra MD Sleep apnea active Jason Becerra MD Chest pain-type to be determined active Micky Becerra MD Fatigue active Jason Becerra MD ENCOUNTERS Date Type Provider Location Encounter Diag nosis - In-person encounter Office Visit Jaosn Becerra MD [facility] - In-person encounter Office Visit Jason Becerra MD [facility] Fatigue - In-person encounter Office Visit Jason Becerra MD [facility] Chest pain-type to be determined - In-person encounter Office Visit Jason Becerra MD [facility] - In-person encounter Office Visit Jason Becerra MD [facility] Cardiology examinationDiabetes, Type 2HyperlipidemiaHypertens ionDiastolic heart failureEdemaSleep apnea VITAL SIGNS Date Observation Value Provider Body Mass Index (Ratio) 38.39 kg/m2 Janes Becerra MD blood pressure, diastolic 80 mm[Hg] Cy ralph Montemayor blood pressure, systolic 161 mm[Hg] Surekha Montemayor blood pressure, cuff size regular Cy ralph Montemayor pulse rate 92 /min Amy haider respiratory rate E&M 18 /min Amy Montemayor oxygen saturation, oximetry 97 % Amy Montemayor weight E&M 260 [lb_av] Amy haider height E&M 69 [in_i] Amy haider Body Mass Index (Ratio) 38.54 kg/m2 Janes Becerra MD blood pressure, cuff size regular Cy ralph Montemayor blood pressure, diastolic 90 mm[Hg] Cy ralph Montemayor blood pressure, systolic 170 mm[Hg] Surekha Montemayor oxygen saturation, oximetry 98 % Amy Montemayor respiratory rate E&M 16 /min Amy Montemayor pulse rate 74 /min Amy haider weight E&M 261 [lb_av] Amy haider height E&M 69 [in_i] Amy haider Body Mass Index (Ratio) 38.39 kg/m2 Janes Becerra MD blood pressure, cuff size large Cr shyam Holcomb blood pressure, diastolic 90 mm[Hg] Cr shyam Holcomb blood pressure, systolic 150 mm[Hg] Cry ortega Holcomb oxygen saturation, oximetry 97 % Ivana Holcomb respiratory rate E&M 17 /min Ivana Holcomb pulse rate 72 /min Ivana boyce weight E&M 260 [lb_av] Ivana boyce height E&M 69 [in_i] Ivana boyce Body Mass Index (Ratio) 38.83 kg/m2 Janes Becerra MD blood pressure, cuff size large Cr shyam Holcomb blood pressure, diastolic 60 mm[Hg] Cr shyam Holcomb blood pressure, systolic 130 mm[Hg] Cry stavitaly Holcomb oxygen saturation, oximetry 98 % Ivana Holcomb respiratory rate E&M 17 /min Ivana Holcomb pulse rate 59 /min Ivana boyce weight E&M 263 [lb_av] Ivana boyce height E&M 69 [in_i] Ivana boyce Body Mass Index (Ratio) 40.16 kg/m2 Janes Becerra MD blood pressure, cuff size regular Cy ralph Sim blood pressure, diastolic 70 mm[Hg] Cy ralph Montemayor blood pressure, systolic 140 mm[Hg] Surekha sandeep Sim oxygen saturation, oximetry 98 % Amy Montemayor respiratory rate E&M 18 /min Amy Montemayor pulse rate 70 /min Amy haider height E&M 69 [in_i] Amy Eng l weight E&M 272 [lb_av] Amy Eng l ALLERGIES No Known Drug Allergies RESULTS Date Observation Value Provider Reference Range Interpretation Location calcium, serum 9.2 mg/dL [facility] 8.6-10.2 carbon dioxide, venous blood 20 mmol/L [facility] 20-29 chloride, serum 107 mmol/L [facility] 96-106 High potassium, serum 5.0 mmol/L [facility] 3.5-5.2 sodium, serum 141 mmol/L [facility] 073-458 5377/09/26 urea nitrogen/creatini ne ratio, serum 19 [facility] 10-24 eGFR if 23 mL/min/{1. 73_m2} [facility] >59 Low eGFR if not 20 mL/min/{1. 73_m2} [facility] >59 Low creatinine, serum 3.14 mg/dL [facility] 0.76-1.27 High urea nitrogen, blood 59 mg/dL [facility] 8-27 High blood glucose, random 206 mg/dL [facility] 65-99 High HISTORY OF MEDICATION USE Medication Status Instructions Dates Provider Indications Com ments MINOXIDIL 2.5 MG ORAL TABLET active take 1 tab twice a day Amy Montemayor AMLODIPINE BESYLATE 10 MG ORAL TABLET completed one tab by mouth daily - Amy Montemayor LISINOPRIL 20 MG ORAL TABLET completed ONE TAB DAILY - Amy Montemayor #30, 30 days supply, Prescribed by DONNIE WOOD, Filled 06/21/2018 TRULICITY 0.75 MG/0.5ML SUBCUTANEOUS SOLUTION PEN-INJECTOR completed - Amy Montemayor #2, 28 days supply, Prescribed by BERTRAM, Filled 06/26/2018 JARDIANCE 10 MG ORAL TABLET completed 1 po daily - Deepthi Richardson METOLAZONE 5 MG ORAL TABLET active 1 po q am x 7 days Jason Becerra MD VITAMIN D3 2000 MCG ORAL TABLET (CHOLECALCIFEROL ) active Take 1 tablet daily Crystal Zhang ASPIR-LOW 81 MG ORAL TABLET DELAYED RELEASE active TAke 1 tablet daily Amy Montemayor SYNTHROID 112 MCG ORAL TABLET active Take 1 tablet once a day Amy Montemayor #90, 90 days supply, Prescribed by DONNIE WOOD, Filled 03/20/2018 FENOFIBRATE MICRONIZED 134 MG ORAL CAPSULE active TAke 1 capsule daily Amy Montemayor #90, 90 days supply, Prescribed by DONNIE WOOD, Filled 03/20/2018 LANTUS SOLOSTAR 100 UNIT/ML SUBCUTANEOUS SOLUTION PEN-INJECTOR active TAke 50 units twice a day Amy Montemayor #90, 90 days supply, Prescribed by DONNIE WOOD, Filled 04/16/2018 RANITIDINE HCL 300 MG ORAL TABLET completed Take 1 tablet daily - Amy Montemayor #30, 30 days supply, Prescribed by ISRAEL, Filled 04/25/2018 HYDRALAZINE HCL 50 MG ORAL TABLET completed TAke 1 tablet twice daily - Amy Montemayor #90, 30 days supply, Prescribed by MARYLU, Filled 05/18/2018 SODIUM BICARBONATE 650 MG ORAL TABLET active TAke 1 tablet daily Amy Montemayor #180, 90 days supply, Prescribed by OSCAR ROBERTSON, Filled 05/18/2018 CARVEDILOL 12.5 MG ORAL TABLET active take 1 tab twice a day Amydiamond Montemayor #60, 30 days supply, Prescribed by ISRAEL, Filled 05/21/2018 FUROSEMIDE 40 MG ORAL TABLET active Take 1 tablet daily Amydiamond Montemayor #60, 30 days supply, Prescribed by ISRAEL, Filled 05/07/2018 ATORVASTATIN CALCIUM 40 MG ORAL TABLET active Take 1 tablet daily Amy Montemayor #90, 90 days supply, Prescribed by DONNIE WOOD, Filled 05/06/2018 SOCIAL HISTORY Date Observation Value Provider social history E&M Marital Statu s: Monica 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 The patient has been benefiting from therapy and should continue use. Jason Becerra MD Cardiology follow up Jason hernandez MD Cardiology follow up :Etiology still unclear. Repeating stress test and will check ECHO. Jason Becerra MD Cardiology Jason Becerra MD Cardiology Jason Becerra MD Cardiology Jason Becerra MD Cardiology Jason Becerra MD Cardiology:His Cr is 2.97 so I am very reluctant to do cath. Will recheck stress test first. Jason Becerra MD Cardiology Jason Becerra MD Cardiology Jason Becerra MD Cardiology Jason Becerra MD Cardiology Jason Becerra MD Cardiology Jason Becerra MD Cardiology Jason Becerra MD Cardiology New Patient Jason lantigua MD Cardiology New Patient Jason lantigua MD Cardiology New Patient Jason lantigua MD Cardiology New Patient Jason lantigua MD Cardiology New Patient Jason lantigua MD Cardiology New Patient Jason lantigua MD Date Name BASIC METABOLIC PANE L W/EGFR Complete Echo BASIC METABOLIC PANE L W/EGFR DLCO - 22490 FRC - 37937 FVC - 68148 HISTORY OF PROCEDURES Procedure Date Procedure Name Provider Procedure Notes S tatus EKG Jason Bceerra MD complete d Regadenoson, 4 units Jason Becerra MD completed Cardiolite, 2 units Jason Becerra MD completed SPECT Images Jason Becerra MD comple wendy Stress EKG Jason Becerra MD complete d FVC / MVV - 75125 Jason Becerra MD c ompleted BLOOD COUNT HEMOGLOBIN Jason Becerra MD completed FRC - 79303 Jason Becerra MD complet ed SpO2 w/o 6min walk/titration Jason Becerra MD completed DLCO - 90572 Jason nguyen DEMETRIS Becerra MD complete d
--- OUTSIDE RECORDS SUMMARY | 2024-03-13 14:39 | XMS_ITS | Encounter Summary ---
Author Organization [facility] Address [facility] [facility] [place] [address] Care Team Providers Care Business Team Leader Name Role Phone Deandre Bojorquez MD Unavailable [phone] Jeff Strickland MD Primary Care Provider [phone] Encounter Details Date Type Department Care Team (Late st Contact Info) Description 04/10/2023 Lab Requisition [facility] [address] [place] [id number] Alan Davenport MD [facility] [place] [place] [address] Social History Tobacco Use Types Packs/Day Years [...] Info) Description 08/04/2024 11:30 AM CDT Appointment [facility] MRI [address] [place] [address] Thomas Mendoza MD [address] [facility] 2L [place] [phone] 08/04/2024 1:30 PM CDT Office Visit [facility] Urology [address] [place] [address] Thomas Mendoza MD [address] [facility] 2L [place] [phone] documented as of this encounter Procedures Procedure Name Priority Date/Time Associated Diagnosis Comments HOLD HLA SPECIMEN Routine 04/02/2023 3:0 1 PM PLANER OFF BEARER documented in this encounter Results * HOLD HLA SPECIMEN (04/02/2023 3:01 PM PLANER OFF BEARER) Hold HLA Specimen 04/10/2023 4:01 PM PLANER OFF BEARER [facility] ([facility]) Comment:The Hold HLA specime n has been received into the lab and will be held for 5 years at 4 degrees. Blood BLOOD SPECIMEN / Unknown 04/02/2023 3:01 PM PLANER OFF BEARER 04/10/2023 3:01 PM PLANER OFF BEARER Alan Davenport MD LAB - BLOOD BANK ORD ERABLES [facility] ([place]) [address] documented in this encounter Visit Diagnoses Not on filedocumented in this encounter Care Teams Business Team Leader Relationship Specialty Start Date End Date Jeff Strickland MD [address] [place] [address] PCP - General 03/05/18 [place] [address] [facility] [address] [place] [id number] Orthopedic Surgery 03/28/17 documented as of this encounter
--- OUTSIDE RECORDS SUMMARY | 2024-03-13 14:39 | XMS_ITS | Clinical Summary ---
Author Organization [facility] Address [address] [place] [address]. [place] [address] [place] [address] Care Team Providers Care Meter/Relay Technician Name Role Phone Jeff Strickland MD Primary Care Provider [phone] Allergies Active Allergy Reactions Criticality Noted Date Comments Oxycodone Hallucinations 02/22/2023 Medications carvedilol (COREG) 25 MG tablet Take 1 tablet (25 mg total) by mouth 2 (two) times daily. Active levothyroxine (SYNTHROID) 112 MCG tablet Take 1 tablet (112 mcg total) by mouth every morning. Active dilTIAZem ER 240 MG 24 hr capsule Take 1 capsule (240 mg total) by mouth daily. Active furosemide (LASIX) 80 MG tablet Take 2 tablets (160 mg total) by mouth 2 (two) times daily. Active lisinopril (PRINIVIL) 20 MG tablet Take 1 tablet (20 mg total) by mouth 2 (two) times daily. Active tamsulosin (FLOMAX) 0.4 MG Cap Take 1 capsule (0.4 mg total) by mouth nightly. Active potassium chloride CR (K-TAB) 10 MEQ Tab CR tablet Take 1 tablet (10 mEq total) by mouth daily. Active LORazepam (ATIVAN) 0.5 MG tablet Take 1 tablet (0.5 mg total) by mouth 2 (two) times daily as needed for Anxiety. Active pantoprazole EC (PROTONIX) 40 MG tablet Take 1 tablet (40 mg total) by mouth daily. Active aspirin EC (ECOTRIN) 81 MG tablet Take 1 tablet (81 mg total) by mouth daily. Active acetaminophen (TYLENOL) 325 MG tablet Take 2 tablets (650 mg total) by mouth every 6 (six) hours as needed for Pain or Fever. 4 Active atorvastatin (LIPITOR) 80 MG tablet Take 1 tablet (80 mg total) by mouth daily. Active Vitamin D3 (CHOLECALCIFER OL) 50 mcg tablet Take 1 tablet (50 mcg total) by mouth daily. Active DULoxetine (CYMBALTA) 30 MG capsule Take 1 capsule (30 mg total) by mouth daily. 4 025 Active fenofibrate (TRICOR) 145 MG tablet Take 1 tablet (145 mg total) by mouth daily. Active insulin lispro, 1 Unit Dial, (HUMALOG) 100 UNIT/ML injection (PEN) Inject 0-14 Units into the skin see administration instructions. Inject 0-14 Units under the skin 3 (three) times a day before meals 151-175 = 2 units 176-200 = 4 units 201-225 = 6 units 226-250 = 8 units 251-275 = 10 units 276-300 = 12 units 300 + = 14 units Active insulin glargine (LANTUS) 100 UNIT/ML injection (PEN) Inject 30 Units into the skin 2 (two) times daily. Inject 40 Units under the skin 2 (two) times a day Active traMADol (ULTRAM) 50 MG tablet Take 1 tablet (50 mg total) by mouth every 6 (six) hours as needed for Pain. 4 Active cloNIDine (CATAPRES) 0.1 MG/24HR patch Place 1 patch (0.1 mg total) onto the skin once a week. 4 Active diphenhydrAMIN E-APAP (TYLENOL PM) 25-500 MG Tab tablet Take 1 tablet by mouth nightly at bedtime. Active Multiple Vitamins-Valet als (PRESERVISION AREDS 2 OR) Take 1 each by mouth 2 (two) times a day. Active tiZANidine (ZANAFLEX) 4 MG tablet Take 1 tablet (4 mg total) by mouth every 8 (eight) hours as needed. 30 tablet 4 Active Active Problems Problem Noted Date Diagnosed Date Intractable headache 05/02/2023 Hypertensive urgency 05/01/2023 Immunizations Name Administration Dates Next Due Fluzone 6 Months+ Quad (0.5 mL Prefilled Syringe ) 05/03/2023 Social History Tobacco Use Types Packs/Day Years Used Date Smoking Tobacco: Never Smokeless Tobacco: Never Tobacco Cessation:Counseling Given: Not Answered Alcohol Use Standard Drinks/Week Comments Not Currently 0 (1 standard drink = 0.6 oz pur e alcohol) [facility] Utilities Answer Date Recorded In the past 12 months has th e electric, gas, oil, or water company threatened to shut off services in your home? No 05/02/2023 Humiliation, Afraid, Rape, and Kick questionnair e Answer Date Recorded Within the last year, have y ou been afraid of your partner or ex-partner? No 05/02/2023 Within the last year, have y ou been humiliated or emotionally abused in other ways by your partner or ex-partner? No Within the last year, have y ou been kicked, hit, slapped, or otherwise physically hurt by your partner or ex-partner? No 05/02/2023 Within the last year, have y ou been raped or forced to have any kind of sexual activity by your partner or ex-partner? No 05/02/2023 Overall Financial Resource Strain (CARDIA) Answe r Date Recorded How hard is it for you to pa y for the very basics like food, housing, medical care, and heating? Not hard at all 05/02/2023 Hunger Vital Sign Answer Date Recorded Within the past 12 months, y ou worried that your food would run out before you got the money to buy more. Never true 05/02/19 24 Within the past 12 months, t he food you bought just didn't last and you didn't have money to get more. Never true 05/02/2023 PRAPARE - Transportation Answer Date Re corded In the past 12 months, has l ack of transportation kept you from medical appointments or from getting medications? No 04/17 In the past 12 months, has l ack of transportation kept you from meetings, work, or from getting things needed for daily living? No 05/02/2023 Housing Stability Vital Sign Answer Frankie e Recorded In the last 12 months, was t here a time when you were not able to pay the mortgage or rent on time? No 05/02/2023 In the last 12 months, how many places have you lived? 1 05/02/2023 In the last 12 months, was t here a time when you did not have a steady place to sleep or slept in a retirement (including now)? 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 Gender Identity Not on file Sexual Orientation Not on file Last Filed Vital Signs Vital Sign Reading Time Taken Comments Blood Pressure 165/90 05/05/2023 4:39 PM CDT Pulse 76 05/05/2023 4:39 PM CDT Temperature 36.2 ??C (97.2 ??F) 05/05/2023 4:39 PM CD T Respiratory Rate 14 05/05/2023 4:39 PM CDT Oxygen Saturation 100% 05/05/2023 4:39 PM CDT Inhaled Oxygen Concentration - - Weight 114.8 kg (253 lb) 05/05/2023 4:39 PM CDT Height 172.7 cm (5' 8 ) 05/05/2023 4:39 PM CDT Body Mass Index 38.47 05/05/2023 4:39 PM CDT Plan of Treatment Health Maintenance Due Date Last Done Comments Colorectal Cancer Screening Colonoscopy (10 Years) 1955 Zoster Vaccines (1 of 2) 01/19/2006 RSV Immunization or 60+ Years (1 - Risk 60-74 years 1-dose series) 2016 Annual Medicare Wellness Visit 01/19/2021 Pneumococcal Vaccine: 65+ Years (2 of 2 - PPSV23 or PCV20) 08/09/2021 08/09/2020 COVID-19 Vaccine ( season) 2023 05/05/2020, 04/20/2020, 04/15/2020, Additional history exists Influenza Adult (#1) 2023 05/03/2023, 10/29/2020, 01/17/2020, Additional history exists DTaP, Tdap and Td Vaccines (3 - Td or Tdap) 04/10/2026 04/10/2016, 04/09/2016 Hepatitis C Completed 03/25/2023, 03/25/2023 Meningococcal Vaccine Aged Out No reilly eusebia eligible based on patient's age to complete this topic RSV Immunizations Under 20 Months Aged Out No longer eligible based on patient's age to complete this topic Goals Goal Patient Goal Type Associated Problems Recent Progress Patient-Stated? Author Patient will return to prior living situation and remain independent in ADLs upon discharge from hospital Lifestyle No Alice Rizzo, [facility] Insurance [employer] Advance Directives * Full Code (Latest Code Status on File) Date Activated Date Inactivated Comments 05/02/2023 12:46 AM 05/03/2023 12:26 PM Care Teams Meter/Relay Technician Relationship Specialty Start Date End Date Jeff Strickland MD [address] [place] [address] PCP - General FAMILY PRACTICE 02/22/23
--- OUTSIDE RECORDS SUMMARY | 2024-03-13 14:39 | XMS_ITS | Patient Health Summary ---
Author Organization [facility] Address [address] [place] [address] Care Team Providers Care Comic Illustrator Name Role Phone Deandre Bojorquez MD Unavailable [phone] Jeff Strickland MD Primary Care Provider [phone] Note from [facility],non-owned Affiliates and Associated Physician Practices is amultiple site organization consisting of ambulatory clinics and hospital sitesin [place], [place], [place] and [place]. This disclosure is being madepursuant to the Care Everywhere program and may not contain all information available regarding this patient. Last updated 17.[facility] Allergies * Oxycodone(Psychiatric) -Medium Criticality Medications * Be aware that medications may not be up to date on this document. Alwaysverify current medications with the patient. * levothyroxine (SYNTHROID) 112 MCG tablet Take 1 (one) tablet by mouth once daily * Cholecalciferol (VITAMIN D-3 PO) Take 2,000 Units by mouth * Multiple Vitamins-Minerals (ICAPS AREDS 2 PO) * Lancets (ONETOUCH DELICA PLUS 33G EXTRA FINE LANCET) OneTouch Delica Plus Lancet 33 gauge * insulin pen needle (BD UF III) 31G X 8 MM needle(Started 05/17/2020) 1 (one) Each 4 times daily 3 refills by 05/17/2021 * Glucose Blood (BLOOD GLUCOSE TEST STRIPS) STRP(Started 05/17/2020) Use 1 strip 4 times daily One touch ultra 4 refills by 05/17/2021 * fluticasone propionate (FLONASE) 50 MCG/ACT nasal spray(Started 06/22/2020) * pantoprazole EC (PROTONIX) 40 MG tablet pantoprazole 40 mg tablet,delayed release TK 1 T PO D * Insulin Lispro (HUMALOG KWIKPEN) 100 UNIT/ML(Started 07/26/2020) Max 136 units per day 3 refills by 07/26/2021 * Basaglar KwikPen (BASAGLAR) pen(Started 11/01/2020) Inject 55 (fifty five) Units subcutaneously 2 times daily * lisinopril (PRINIVIL; ZESTRIL) 20 MG tablet(Started 05/14/2021) Take 1 (one) tablet by mouth 2 times daily 11 refills by 05/14/2022 * loteprednol (LOTEMAX) 0.5 % ophthalmic suspension(Started 05/17/2021) * LORazepam (Ativan) 0.5 MG tablet Take 1 (one) tablet by mouth at bedtime * carvedilol (Coreg) 25 MG tablet(Started 08/05/2021) Take 1 (one) tablet by mouth 2 times daily * furosemide (Lasix) 80 MG tablet(Started 08/14/2021) Take 2 (two) tablets by mouth 2 times daily * aspirin EC (Aspirin 81) 81 MG tablet(Started 05/01/2023) Take 1 (one) tablet by mouth once daily 3 refills by 04/30/2024 * cloNIDine (Catapres) 0.1 MG/24HR patch Apply 1 (one) patch to skin every 7 days * dilTIAZem ER 12hr 120 MG capsule(Started 08/28/2023) Take 1 (one) capsule by mouth 2 times daily 11 refills by 08/27/2024 * fenofibrate (Tricor) 145 MG tablet(Started 10/23/2023) Take 1 (one) tablet by mouth once daily 4 refills by 10/22/2024 * atorvastatin (Lipitor) 80 MG tablet(Started 12/05/2023) Take 1 (one) tablet by mouth once daily 3 refills by 12/04/2024 * hydrALAZINE (Apresoline) 10 MG tablet(Started 01/08/2024) Take 2 (two) tablets by mouth 3 times daily 3 refills by 01/07/2025 * B Wbnhngu-H-Cxfxn Acid (Dialyvite 800) 0.8 MG 1 tablet Orally Once a day for 30 day(s) Ended Medications* minoxidil (LONITEN) 2.5 MG tablet(Started 07/19/2019) (Discontinued) Take 1 (one) tablet by mouth 2 times daily * Continuous Blood Gluc Linking Machine Operator (FREESTYLE VIKRAM READER) KERON(Started 12/01/2019)(Discontinued) Use 1 Each once daily * sevelamer carbonate (RENVELA) 800 MG(Started 06/26/2020)(Discontinued) Take 1 (one) tablet by mouth 3 times daily with meals Reasons: High Amount of Phosphate in the Blood * sodium bicarbonate 650 MG tablet(Started 05/20/2021)(Discontinued) * insulin NPH pen(Discontinued) Inject 100 (one hundred) Units subcutaneously 2 times daily, before breakfast and supper * HumuLIN R U-500 KWIKPEN 500 UNIT/ML SOPN pen(Started 10/18/2021)(Discontinued) * guanFACINE (Tenex) 1 MG tablet(Discontinued) Take 1 (one) tablet by mouth at bedtime * tamsulosin (Flomax) 0.4 MG capsule(Discontinued) Take 1 (one) capsule by mouth once daily At the same time every day after a meal. * finasteride (Proscar) 5 MG tablet(Discontinued) Take 1 (one) tablet by mouth once daily Active Problems Problem Noted Date Diagnosed Date Chronic diastolic heart failure 01/12/2024 History of renal cell carcinoma 01/12/2024 Hypertriglyceridemia 05/01/2023 Hypertension 05/01/2023 Anemia due to end stage renal disease 04/24/2023 Atherosclerosis of coronary artery without angin a pectoris 04/24/2023 End-stage renal disease on peritoneal dialysis 0 04/24/2023 Hypertensive renal failure 04/24/2023 Hypothyroidism 12/04/2020 Type 2 diabetes mellitus 12/04/2020 CAD in [place] artery 08/04/2020 Pre-transplant evaluation for kidney transplant 11/10/2019 Presence of right artificial knee joint 03/28/19 18 Immunizations * Covid Pfizer primary monovalent 12+ yr 0.3mL Purple cap(Given 04/20/2020, 03/20/2020) * FLU VACCINE QUAD IIV4 PF ID(Given 01/17/2020) * FLU VACCINE TRI IIV3 SPLIT PF IM (FLUVIRIN)(Given 04/09/2016) * HEP B VACCINE, ADULT 3 DOSE(Given 03/26/2021, 08/17/2020, 03/21/2020, 02/28/2020, 01/27/2020) * INFLUENZA VACCINE(Given 01/17/2020, 04/10/2016) * INFLUENZA VACCINE, QUADR. (FLUZONE; FLULAVAL; FLUARIX; AFLURIA QUADRIVALENT; 6MO+), 0.5 ML (IIV4)(Given 03/30/2018) * PNEUMOCOCCAL PCV VACCINE(Given 08/09/2020, 02/09/2020) * Pneumococcal Pcv13 Conj(Given 02/09/2020) * TDAP (7yrs+)(Given 04/10/2016) * iNFLUENZA VACCINE, RECOM-OLVERA, QUADR. (FLUBLOCK QUADRIVALENT; 18Y+) (RIV4)(Given 01/17/2020) Social History Tobacco Use Types Packs/Day Years [...] Comments Blood Pressure 134/74 03/03/2024 12:47 PM RADIO AERIAL INSTALLER Pulse 65 03/03/2024 12:47 PM RADIO AERIAL INSTALLER Temperature 36.2 ??C (97.2 ??F) 08/06/2023 1:56 PM CD T Respiratory Rate 18 01/14/2022 1:01 PM RADIO AERIAL INSTALLER Oxygen Saturation 96% 03/03/2024 12:47 PM RADIO AERIAL INSTALLER Inhaled Oxygen Concentration - - Weight 119.7 kg (264 lb) 03/03/2024 12:47 PM RADIO AERIAL INSTALLER Height 172.7 cm (5' 8 ) 03/03/2024 12:47 PM RADIO AERIAL INSTALLER Body Mass Index 40.14 03/03/2024 12:47 PM RADIO AERIAL INSTALLER Medical Devices Implanted Type Area Assistant Office Manager Device Identifier Shelf Expiration Date Model / Serial / Lot Sys Cor Stent Xience Srr 3mm 18mm Rap Ex Implanted:Qty: 1 on 08/04/2020 by Javier Lan MD at [facility] Stent Coronary [employer] 06/19/2022 [id number] Description:STENT Sys Cor Stent Xience Srr 3mm 8mm Rap Ex Implanted:Qty: 1 on 08/04/2020 by Javier Lan MD at [facility] Stent Coron[employer] 09/03/2021 [id number] Description:stent Procedures * HOLD HLA SPECIMEN(Performed 03/05/2024) * HOLD HLA SPECIMEN(Performed 01/27/2024) * HOLD HLA SPECIMEN(Performed 11/18/2023) * HOLD HLA SPECIMEN(Performed 10/22/2023) * EKG 12-LEAD(Performed 10/14/2023) Performed for Hypertension, unspecified type * HOLD HLA SPECIMEN(Performed 09/24/2023) * HOLD HLA SPECIMEN(Performed 07/23/2023) * MRI ABDOMEN WO CONTRAST(Performed 07/17/2023) Performed for Pre-kidney transplant, listed, Renal cyst, Renal lesion, ESRD (end stage renal disease) (HCC), Abnormal finding on diagnostic imaging of kidney * CREATININE - POCT INTERFACED(Performed 07/17/2023) * US RETROPERITONEAL COMPLETE(Performed 05/21/2023) Performed for Pre-kidney transplant, listed, Multiple renal cysts * US THYROID(Performed 05/21/2023) Performed for Pre-kidney transplant, listed, Multiple thyroid nodules * HOLD HLA SPECIMEN(Performed 05/21/2023) * HOLD HLA SPECIMEN(Performed 04/02/2023) * HOLD HLA SPECIMEN(Performed 2023) * CARDIAC EKG ORDER(Performed 11/08/2022) * NM MYOCARD PERF REST STRESS(Performed 11/06/2022) Performed for Pre-kidney transplant, listed, Coronary artery disease with angina pectoris, unspecified vessel or lesion type, unspecified whether flandreau or transplanted heart (HCC), Congestive heart failure, unspecified HF chronicity, unspecified heart failure type (HCC), Type 2 diabetes mellitus with chronic kidney disease on chronic dialysis, without long-term current use of insulin (HCC), Hypertension, unspecified type * STRESS TEST(Performed 11/06/2022) Performed for Pre-kidney transplant, listed, Coronary artery disease with angina pectoris, unspecified vessel or lesion type, unspecified whether fl[place] or transplanted heart (HCC), Congestive heart failure, unspecified HF chronicity, unspecified heart failure type (HCC), Type 2 diabetes mellitus with chronic kidney disease on chronic dialysis, without long-term current use of insulin (HCC), Hypertension, unspecified type * ECHO COMPLETE(Performed 11/06/2022) Performed for Pre-kidney transplant, listed, Coronary artery disease with angina pectoris, unspecified vessel or lesion type, unspecified whether [place]reau or transplanted heart (HCC), Congestive heart failure, unspecified HF chronicity, unspecified heart failure type (HCC), Type 2 diabetes mellitus with chronic kidney disease on chronic dialysis, without long-term current use of insulin (HCC), Hypertension, unspecified type * HLA ANTIBODY SCREEN LUM CLASS 2 SAB(Performed 10/28/2022) Performed for Pre-transplant evaluation for kidney transplant * HLA ANTIBODY SCREEN LUM CLASS 1 SAB(Performed 10/28/2022) Performed for Pre-transplant evaluation for kidney transplant * HLA ANTIBODY SCREEN LUM CLASS 2 SAB(Performed 09/25/2022) Performed for Pre-transplant evaluation for kidney transplant * HLA ANTIBODY SCREEN LUM CLASS 1 SAB(Performed 09/25/2022) Performed for Pre-transplant evaluation for kidney transplant * HLA ANTIBODY SCREEN LUM CLASS 2 SAB(Performed 08/26/2022) Performed for Pre-transplant evaluation for kidney transplant * HLA ANTIBODY SCREEN LUM CLASS 1 SAB(Performed 08/26/2022) Performed for Pre-transplant evaluation for kidney transplant * HLA ANTIBODY SCREEN LUM CLASS 1 SAB(Performed 07/30/2022) Performed for Pre-transplant evaluation for kidney transplant * HLA ANTIBODY SCREEN LUM CLASS 2 SAB(Performed 07/30/2022) Performed for Pre-transplant evaluation for kidney transplant * HLA ANTIBODY SCREEN LUM CLASS 2 SAB(Performed 06/21/2022) Performed for Pre-transplant evaluation for kidney transplant * HLA ANTIBODY SCREEN LUM CLASS 1 SAB(Performed 06/21/2022) Performed for Pre-transplant evaluation for kidney transplant * US THYROID(Performed 04/25/2022) Performed for Pre-transplant evaluation for kidney transplant * OXALATE BLOOD(Performed 03/04/2022) Performed for Pre-transplant evaluation for kidney transplant * MRI ABDOMEN WWO CONTRAST(Performed 03/04/2022) Performed for Pre-transplant evaluation for kidney transplant * CT CHEST WO CONTRAST(Performed 03/04/2022) Performed for Pre-transplant evaluation for kidney transplant * CREATININE - POCT INTERFACED(Performed 03/04/2022) * XR CHEST 2VW(Performed 01/14/2022) Performed for Pre-transplant evaluation for kidney transplant * URINALYSIS W/MICROSCOPIC NO CULTURE(Performed 01/14/2022) Performed for Pre-transplant evaluation for kidney transplant * CREATININE URINE RANDOM(Performed 01/14/2022) Performed for Pre-transplant evaluation for kidney transplant * PROTEIN URINE RANDOM QUANTITATIVE(Performed 01/14/2022) Performed for Pre-transplant evaluation for kidney transplant * HLA ANTIBODY SCREEN LUM CLASS 2 SAB(Performed 01/14/2022) Performed for Pre-transplant evaluation for kidney transplant * HLA ANTIBODY SCREEN LUM CLASS 1 SAB(Performed 01/14/2022) Performed for Pre-transplant evaluation for kidney transplant * LDL CHOLESTEROL DIRECT(Performed 01/14/2022) Performed for Pre-transplant evaluation for kidney transplant * QUANTIFERON-TB GOLD PLUS 4-TUBE(Performed 01/14/2022) Performed for Pre-transplant evaluation for kidney transplant * HEPATITIS A ANTIBODY(Performed 01/14/2022) Performed for Pre-transplant evaluation for kidney transplant * HIV-1 HIV-2 ANTIBODY + HIV P24 AG PANEL(Performed 01/14/2022) Performed for Pre-transplant evaluation for kidney transplant * PTH INTACT W/O CALCIUM(Performed 01/14/2022) Performed for Pre-transplant evaluation for kidney transplant * TOXOPLASMA GONDII ANTIBODY IGG(Performed 01/14/2022) Performed for Pre-transplant evaluation for kidney transplant * STRONGYLOIDES ANTIBODY IGG(Performed 01/14/2022) Performed for Pre-transplant evaluation for kidney transplant * PROSTATE SPECIFIC ANTIGEN SCREEN(Performed 01/14/2022) Performed for Pre-transplant evaluation for kidney transplant * CANNABINOID SCREEN BLOOD(Performed 01/14/2022) Performed for Pre-transplant evaluation for kidney transplant * IRON BLOOD(Performed 01/14/2022) Performed for Pre-transplant evaluation for kidney transplant * FERRITIN(Performed 01/14/2022) Performed for Pre-transplant evaluation for kidney transplant * TRANSFERRIN(Performed 01/14/2022) Performed for Pre-transplant evaluation for kidney transplant * VITAMIN D 25-HYDROXY(Performed 01/14/2022) Performed for Pre-transplant evaluation for kidney transplant * URIC ACID BLOOD(Performed 01/14/2022) Performed for Pre-transplant evaluation for kidney transplant * OPIATES BLOOD(Performed 01/14/2022) Performed for Pre-transplant evaluation for kidney transplant * COCAINE METABOLITE BLOOD QUANT(Performed 01/14/2022) Performed for Pre-transplant evaluation for kidney transplant * AMPHETAMINE BLOOD CONFIRMATION(Performed 01/14/2022) Performed for Pre-transplant evaluation for kidney transplant * NICOTINE + METABOLITES BLOOD(Performed 01/14/2022) Performed for Pre-transplant evaluation for kidney transplant * ALCOHOL ETHYL BLOOD(Performed 01/14/2022) Performed for Pre-transplant evaluation for kidney transplant * SYPHILIS ANTIBODY CASCADING REFLEX(Performed 01/14/2022) Performed for Pre-transplant evaluation for kidney transplant * HEMOGLOBIN A1C(Performed 01/14/2022) Performed for Pre-transplant evaluation for kidney transplant * CYTOMEGALOVIRUS ANTIBODY IGG BLOOD(Performed 01/14/2022) Performed for Pre-transplant evaluation for kidney transplant * HEPATITIS C ANTIBODY(Performed 01/14/2022) Performed for Pre-transplant evaluation for kidney transplant * HEPATITIS B SURFACE ANTIBODY(Performed 01/14/2022) Performed for Pre-transplant evaluation for kidney transplant * HEPATITIS B CORE ANTIBODY TOTAL(Performed 01/14/2022) Performed for Pre-transplant evaluation for kidney transplant * HEPATITIS B SURFACE ANTIGEN W RFLX CONFIRMATION(Performed 01/14/2022) Performed for Pre-transplant evaluation for kidney transplant * LIPID PROFILE(Performed 01/14/2022) Performed for Pre-transplant evaluation for kidney transplant * PHOSPHORUS BLOOD(Performed 01/14/2022) Performed for Pre-transplant evaluation for kidney transplant * COMPREHENSIVE METABOLIC PANEL(Performed 01/14/2022) Performed for Pre-transplant evaluation for kidney transplant * CBC W AUTO DIFFERENTIAL(Performed 01/14/2022) Performed for Pre-transplant evaluation for kidney transplant * US RETROPERITONEAL COMPLETE(Performed 11/30/2021) Performed for Left renal mass * CARDIAC EKG ORDER(Performed 11/20/2021) * NM MYOCARD PERF REST STRESS(Performed 11/12/2021) Performed for Pre-transplant evaluation for kidney transplant * ECHO COMPLETE(Performed 11/07/2021) Performed for Coronary artery disease involving flandreau coronary artery of flandreau heart without angina pectoris * IR CENTRAL LINE REMOVAL(Performed 06/22/2021) Performed for End stage renal disease (HCC) * IR CENTRAL LINE INSERT TUNNEL(Performed 04/04/2021) Performed for End stage renal disease (HCC) * IR CENTRAL LINE REMOVAL(Performed 11/10/2020) Performed for End stage renal disease (HCC) * IR CENTRAL LINE INSERT TUNNEL(Performed 09/07/2020) Performed for End stage renal disease (HCC) * RENAL FUNCTION PANEL(Performed 09/07/2020) Performed for End stage renal disease (HCC) * CBC W AUTO DIFFERENTIAL(Performed 09/07/2020) Performed for End stage renal disease (HCC) * FL PERITONEUM(Performed 09/06/2020) Performed for End stage renal disease (HCC) * CARDIAC PROCEDURE ORDER(Performed 08/07/2020) * CCL CARDIAC CATH LEFT(Performed 08/04/2020) Performed for Coronary artery disease involving fl[place]reau coronary artery of [place] heart with angina pectoris (HCC), Pre-transplant evaluation for kidney transplant * GLUCOSE - POINT OF CARE(Performed 08/04/2020) * GLUCOSE - POINT OF CARE(Performed 08/02/2020) * XR CHEST 1VW(Performed 08/02/2020) Performed for Kidney mass * CT KIDNEY BIOPSY(Performed 08/02/2020) Performed for Kidney mass * PATHOLOGY TISSUE(Performed 08/02/2020) Performed for Kidney mass * GLUCOSE - POINT OF CARE(Performed 08/02/2020) * GLUCOSE - POINT OF CARE(Performed 08/02/2020) * PT-INR(Performed 07/28/2020) Performed for Pre-op evaluation * CBC W AUTO DIFFERENTIAL(Performed 07/28/2020) Performed for Pre-op evaluation * BASIC METABOLIC PANEL (CALCIUM TOTAL)(Performed 07/28/2020) Performed for Pre-op evaluation * MRI ABDOMEN WO CONTRAST(Performed 07/28/2020) Performed for Renal cyst * CT CHEST WO CONTRAST(Performed 07/04/2020) Performed for Pre-transplant evaluation for kidney transplant * LDL CHOLESTEROL DIRECT(Performed 06/15/2020) Performed for Coronary artery disease involving fl[place] coronary artery of fl[place]reau heart without angina pectoris * LIPID PROFILE(Performed 06/15/2020) Performed for Coronary artery disease involving [place] coronary artery of fl[place]reau heart without angina pectoris * CT KIDNEYS WWO CONTRAST(Performed 06/15/2020) Performed for Pre-transplant evaluation for kidney transplant * CREATININE - POCT INTERFACED(Performed 06/15/2020) * HEMOGLOBIN A1C - POINT OF CARE (AMB) SLU(Performed 05/17/2020) Performed for Uncontrolled type 2 diabetes mellitus with hyperglycemia (HCC) * FL CYSTOGRAM VOIDING(Performed 12/02/2019) Performed for Pre-transplant evaluation for kidney transplant * QUANTIFERON-TB GOLD PLUS 4-TUBE(Performed 12/02/2019) Performed for Pre-transplant evaluation for kidney transplant * CARDIAC EKG ORDER(Performed 11/30/2019) * CARDIAC EKG ORDER(Performed 11/14/2019) * URINALYSIS W/MICROSCOPIC NO CULTURE(Performed 11/09/2019) Performed for Pre-transplant evaluation for kidney transplant * CREATININE URINE RANDOM(Performed 11/09/2019) Performed for Pre-transplant evaluation for kidney transplant * PROTEIN URINE RANDOM QUANTITATIVE(Performed 11/09/2019) Performed for Pre-transplant evaluation for kidney transplant * BLOOD TYPE ABO+ RH PANEL(Performed 11/09/2019) Performed for Pre-transplant evaluation for kidney transplant * HLA ANTIBODY SCREEN LUM CLASS 2 ID(Performed 11/09/2019) Performed for Pre-transplant evaluation for kidney transplant * HLA ANTIBODY SCREEN LUM CLASS 1 ID(Performed 11/09/2019) Performed for Pre-transplant evaluation for kidney transplant * HLA TYPING DNA LOW RESOLUTION DR,DQ(Performed 11/09/2019) Performed for Pre-transplant evaluation for kidney transplant * HLA TYPING DNA LOW RESOLUTION A,B,C(Performed 11/09/2019) Performed for Pre-transplant evaluation for kidney transplant * TYPE + SCREEN PANEL(Performed 11/09/2019) Performed for Pre-transplant evaluation for kidney transplant * LDL CHOLESTEROL DIRECT(Performed 11/09/2019) Performed for Pre-transplant evaluation for kidney transplant * RUBELLA ANTIBODY IGG TITER(Performed 11/09/2019) Performed for Pre-transplant evaluation for kidney transplant * HIV-1 HIV-2 ANTIGEN/ANTIBODY(Performed 11/09/2019) Performed for Pre-transplant evaluation for kidney transplant * HEPATITIS A ANTIBODY(Performed 11/09/2019) Performed for Pre-transplant evaluation for kidney transplant * PTH INTACT W/O CALCIUM(Performed 11/09/2019) Performed for Pre-transplant evaluation for kidney transplant * TOXOPLASMA GONDII ANTIBODY IGG(Performed 11/09/2019) Performed for Pre-transplant evaluation for kidney transplant * STRONGYLOIDES ANTIBODY IGG(Performed 11/09/2019) Performed for Pre-transplant evaluation for kidney transplant * PROSTATE SPECIFIC ANTIGEN SCREEN(Performed 11/09/2019) Performed for Pre-transplant evaluation for kidney transplant * CANNABINOID SCREEN BLOOD(Performed 11/09/2019) Performed for Pre-transplant evaluation for kidney transplant * IRON BLOOD(Performed 11/09/2019) Performed for Pre-transplant evaluation for kidney transplant * FERRITIN(Performed 11/09/2019) Performed for Pre-transplant evaluation for kidney transplant * TRANSFERRIN(Performed 11/09/2019) Performed for Pre-transplant evaluation for kidney transplant * VITAMIN D 25-HYDROXY(Performed 11/09/2019) Performed for Pre-transplant evaluation for kidney transplant * URIC ACID BLOOD(Performed 11/09/2019) Performed for Pre-transplant evaluation for kidney transplant * VARICELLA ZOSTER ANTIBODY IGG(Performed 11/09/2019) Performed for Pre-transplant evaluation for kidney transplant * MUMPS ANTIBODY IGG(Performed 11/09/2019) Performed for Pre-transplant evaluation for kidney transplant * RUBEOLA ANTIBODY IGG(Performed 11/09/2019) Performed for Pre-transplant evaluation for kidney transplant * OPIATES BLOOD(Performed 11/09/2019) Performed for Pre-transplant evaluation for kidney transplant * COCAINE METABOLITE BLOOD QUANT(Performed 11/09/2019) Performed for Pre-transplant evaluation for kidney transplant * AMPHETAMINE BLOOD CONFIRMATION(Performed 11/09/2019) Performed for Pre-transplant evaluation for kidney transplant * NICOTINE + METABOLITES BLOOD(Performed 11/09/2019) Performed for Pre-transplant evaluation for kidney transplant * ALCOHOL ETHYL BLOOD(Performed 11/09/2019) Performed for Pre-transplant evaluation for kidney transplant * SYPHILIS ANTIBODY CASCADING REFLEX(Performed 11/09/2019) Performed for Pre-transplant evaluation for kidney transplant * HEMOGLOBIN A1C(Performed 11/09/2019) Performed for Pre-transplant evaluation for kidney transplant * CHARLENE-GAONA VIRUS ANTIBODY TO VCA IGG(Performed 11/09/2019) Performed for Pre-transplant evaluation for kidney transplant * CYTOMEGALOVIRUS ANTIBODY IGG BLOOD(Performed 11/09/2019) Performed for Pre-transplant evaluation for kidney transplant * HEPATITIS C ANTIBODY(Performed 11/09/2019) Performed for Pre-transplant evaluation for kidney transplant * HEPATITIS B SURFACE ANTIBODY(Performed 11/09/2019) Performed for Pre-transplant evaluation for kidney transplant * HEPATITIS B CORE ANTIBODY TOTAL(Performed 11/09/2019) Performed for Pre-transplant evaluation for kidney transplant * HEPATITIS B SURFACE ANTIGEN W RFLX CONFIRMATION(Performed 11/09/2019) Performed for Pre-transplant evaluation for kidney transplant * LIPID PROFILE(Performed 11/09/2019) Performed for Pre-transplant evaluation for kidney transplant * PHOSPHORUS BLOOD(Performed 11/09/2019) Performed for Pre-transplant evaluation for kidney transplant * COMPREHENSIVE METABOLIC PANEL(Performed 11/09/2019) Performed for Pre-transplant evaluation for kidney transplant * CBC W AUTO DIFFERENTIAL(Performed 11/09/2019) Performed for Pre-transplant evaluation for kidney transplant * CT ABDOMEN PELVIS WO CONTRAST(Performed 11/09/2019) Performed for Pre-transplant evaluation for kidney transplant * XR PANOREX(Performed 11/09/2019) Performed for Pre-transplant evaluation for kidney transplant * XR CHEST 2VW(Performed 11/09/2019) Performed for Pre-transplant evaluation for kidney transplant * ECHO STRESS W DOBUTAMINE(Performed 11/09/2019) Performed for Pre-transplant evaluation for kidney transplant * XR HAND RIGHT 3VW OR MORE(Performed 03/05/2018) Performed for Right hand pain * XR KNEE RIGHT 3VW(Performed 03/28/2017) Performed for Chronic pain of right knee Results * HOLD HLA SPECIMEN (03/05/2024 1:40 PM RADIO AERIAL INSTALLER) Only the most recent of9 resultswithin the time period is included. [facility] Hold HLA Specimen 03/12/2024 3:00 PM RADIO AERIAL INSTALLER [facility] ([facility]) Comment:The Hold HLA specime n has been received into the lab and will be held for 5 years at 4 degrees. Blood BLOOD SPECIMEN / Unknown 03/05/2024 1:40 PM RADIO AERIAL INSTALLER 03/12/2024 1:40 PM RADIO AERIAL INSTALLER Alan Davenport MD LAB - BLOOD BANK ORD ERABLES [facility] ([facility]) [address], [place] [address] [place] * EKG 12-LEAD (10/14/2023 11:24 AM CDT) Ventricular Rate 53 BPM [facility] Atrial Rate 53 BPM [facility] P-R Interval 170 ms [facility] QRS Duration ms 96 ms [facility] Q-T Interval ms 534 ms [facility] QTC Calculation (Bezet) 501 ms [facility] Calculated P [place] 20 degrees [facility] Calculated R [place] -50 degrees SL [facility] Calculated T [place] -32 degrees [facility] Interpretation EKG SINUS BRADYCARDIA INCOMPLETE RIGHT BUNDLE BRANCH BLOCK LEFT ANTERIOR FASCICULAR BLOCK SEPTAL INFARCT , AGE UNDETERMINED PROLONGED QT ABNORMAL ECG NO PREVIOUS ECGS AVAILABLE Confirmed by SHANELL CAICEDO MD ([id number]) on 10/16/2023 10:56:56 AM [facility] 10/14/2023 11:2 4 AM CDT 10/16/2023 10:56 AM CDT Letha Christine JOINT FINISHER-SENIOR SUPPORT ENGINEER ECG ORDERABLES [facility] * MRI ABDOMEN WO CONTRAST (07/17/2023 11:44 AM CDT) Only the most recent of2 resultswithin the time period is included. Anatomical Region Laterality Modality Abdomen Magnetic Resonan ce 07/17/2023 12:3 6 PM CDT Impressions 07/17/2023 12:48 PM CDT IMPRESSION: 1. Slightly increased size of 2.9 cm medial left upper pole lesion which appeared solid on the prior exam from 03/04/2022. 2. Background polycystic kidneys including risks complex lesions, not well evaluated without intravenous contrast. > Interpreting Provider: Adriana Genao MD on 07/17/2023 12:48 PM Narrative 07/17/2023 12:48 PM CDT PROCEDURE: ??MRI ABDOMEN WO CONTRAST DATE/TIME OF EXAM: ??07/17/2023 11:45 AM CLINICAL INFORMATION: None relevant/not provided if blank. Indication: Z76.82: Awaiting organ transplant status N28.1: Cyst of kidney, acquired N28.9: Disorder of kidney and ureter, unspecified N18.6: End stage renal disease (HCC) R93.429: Abnormal radiologic findings on diagnostic imaging of unspecified kidney Additional History: COMPARISON: 07/28/2020 TECHNIQUE: MRI of the abdomen was performed utilizing multiple pulse sequences in multiple planes without gadolinium. FINDINGS: Liver: Parenchyma: No evidence of hepatic [...] pole laterally. Additional findings: Small volume ascites. Procedure Note Adriana Genao MD - 07/17/2023 PROCEDURE: MRI ABDOMEN WO CONTRAST DATE/TIME OF EXAM: 07/17/2023 11:45 AM CLINICAL INFORMATION: None relevant/not provided if blank. Indication: Z76.82: Awaiting organ transplant status N28.1: Cyst of kidney, acquired N28.9: Disorder of kidney and ureter, unspecified N18.6: End stage renal disease (HCC) R93.429: Abnormal radiologic findings on diagnostic imaging ofunspecified kidney Additional History: COMPARISON: 07/28/2020 TECHNIQUE: MRI of the abdomen was performed utilizing multiple pulse sequences in multiple planes without gadolinium. FINDINGS: Liver: Parenchyma: No evidence of hepatic [...] T1 and T2 intense 2.6 cm medial leftlower pole exophytic lesion with blooming artifact on in phase imagingsuggesting hemosiderin. Endophytic 7 T2 hyperintense medial left [...] Background polycystic kidneys including risks complex lesions, notwell evaluated without intravenous contrast. > Interpreting Provider: Adriana Genao MD on 07/17/2023 12:48 PM Martinez Sandhu MD MR ORDERABLES * (ABNORMAL) CREATININE - POCT INTERFACED (07/17/2023 10:44 AM CDT) Only the most recent of3 resultswithin the time period is included. Creatinine POCT 3.84(H) 0.70 - 1.20 mg/dL 07/17/2023 10:59 AM CDT [facility] eGFR 16(L) >=90 mL/min/1.7 3 m2 07/17/2023 10:59 AM CDT [facility] Blood BLOOD SPECIMEN / Unknown 07/17/2023 10:44 AM CDT 07/17/2023 10:59 AM CDT Martinez Sandhu MD LAB - POINT OF CARE ORDERABLES [facility] [address], [place] [id number] * US RETROPERITONEAL COMPLETE (05/21/2023 12:05 PM CDT) Only the most recent of2 resultswithin the time period is included. Anatomical Region Laterality Modality Abdomen Ultrasound 05/21/2023 11:2 2 AM CDT Impressions 05/21/2023 12:34 PM CDT IMPRESSION: 1.Bilateral multicystic kidneys, some of which are proteinaceous/hemorrhagic and some of which are simple. 2.Previously characterized left superior pole on this exam was not well characterized on this exam. 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 Recommend repeat characterization with CT/MRI renal protocol to exclude solid component. Report dictated by Romel Hendricks MD, (president financial institution). > Dictated by Romel Hendricks MD (Main Entree Cook And Cashier) 05/21/2023 11:22 AM ILizandro MD have personally reviewed and interpreted this examination/study. > Interpreting Provider: Lizandro Diaz MD on 05/21/2023 12:34 PM Narrative 05/21/2023 12:34 PM CDT PROCEDURE: ??US RETROPERITONEAL COMPLETE, DATE/TIME OF EXAM: ??05/21/2023 12:05 PM, LOCATION ??[facility] INDICATION: Z76.82: Pre-kidney transplant, listed Q61.02: Multiple renal cysts ADDITIONAL CLINICAL INFORMATION: Ordering Provider Reason For Exam: ??history of complex renal cysts Technologist Note: Additional: COMPARISON: 03/04/2022 MRI abdomen. 08/02/2020 CT kidney biopsy TECHNIQUE: Vo scale and color Doppler ultrasound imaging of the kidneys and urinary bladder per department protocol. FINDINGS: Right kidney: 10.0 x 5.5 x [...] exam. Urinary bladder: Decompressed and poorly visualized Procedure Note Lizandro Diaz MD - 05/21/2023 PROCEDURE: US RETROPERITONEAL COMPLETE, DATE/TIME OF EXAM: 2:05 PM, LOCATION [facility] INDICATION: Z76.82: Pre-kidney transplant, listed Q61.02: Multiple renal cysts ADDITIONAL CLINICAL INFORMATION: Ordering Provider Reason For Exam: history of complex renal cysts Technologist Note: Additional: COMPARISON: 03/04/2022 MRI abdomen. 08/02/2020 CT kidney biopsy TECHNIQUE: Vo scale and color Doppler ultrasound imaging of thekidneys and urinary bladder per department protocol. FINDINGS: Right kidney: 10.0 x 5.5 x 5.3 cm The cortical echotexture and thickness are normal. No urinary tract dilation is present. There is a nonobstructing renal stone measuring 6mm. The perinephric soft tissues are normal. Multiple [...] corresponds with previously identified Bosniak 2F cyst onprior MRI. Multiple other exophytic cysts are redemonstrated, the largest measuring up to 5.1 cm. 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 Urinary bladder: Decompressed and poorly visualized IMPRESSION: 1.Bilateral multicystic kidneys, some of which are proteinaceous/hemorrhagic and some of which are simple. 2.Previously characterized left superior pole on this exam was not well characterized on this exam. 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 Recommend repeat characterization with CT/MRI renal protocol to exclude solid component. Report dictated by Romel Hendricks MD, (president financial institution). > Dictated by Romel Hendricks MD (Main Entree Cook And Cashier) 05/21/2023 11:22 AM I, Lizandro Diaz MD have personally reviewed and interpreted this examination/study. > Interpreting Provider: Lizandro Diaz MD on 05/21/2023 12:34 PM Alan Davenport MD US ORDERABLES * US THYROID (05/21/2023 12:03 PM CDT) Only the most recent of2 resultswithin the time period is included. Anatomical Region Laterality Modality Chest Ultrasound 05/21/2023 10:5 5 AM CDT Impressions 05/21/2023 11:02 AM CDT IMPRESSION: ?? 1. Interval change in right thyroid nodule [...] Lizandro Diaz MD on 05/21/2023 11:02 AM Narrative 05/21/2023 11:02 AM CDT EXAMINATION: ??THYROID SONOGRAM HISTORY: Multiple thyroid nodules. COMPARISON: Thyroid sonogram dated 04/25/2022 FINDINGS: The thyroid is normal in [...] No ACR TI-RADS recommendation: No further follow-up Procedure Note Lizandro Diaz MD - 05/21/2023 EXAMINATION: THYROID SONOGRAM HISTORY: Multiple thyroid nodules. COMPARISON: Thyroid sonogram dated 04/25/2022 FINDINGS: The thyroid is normal in size. Size right lobe: 4.6 cm craniocaudal, 1.8 cm transverse, 1.6 cm AP. Size left lobe: 4.4 cm craniocaudal, 2.0 cm transverse, 1.7 cm AP. Size isthmus: 0.2 cm AP. Redemonstrated macrocalcification within the right thyroid, which doesnot appear to be associated with a nodule. Color Doppler flow is withinnormal limits. The thyroid echotexture/echogenicity is normal. Nodule 1: Location: Right mid . Size: 1.5 cm craniocaudal x 1.0 cm transverse x 0.8 cm AP (previously1.6 cm craniocaudal x 0.9 cm transverse x [...] size (>/= 20% in two dimensions and minimalincrease of 2 mm): No Change in features: Yes, slightly more hypoechoic than the prior exam. Change in ACR TI-RADS risk category: Yes, TR 4 given hypoechoic echogenicity. ACR TI-RADS recommendation: Follow-up US in 1 year Nodule 2: Location: Right lower . Size: 1.0 cm craniocaudal x 1.0 cm transverse x 0.9 cm AP (previously1.0 cm craniocaudal x 0.8 cm transverse x [...] size (>/= 20% in two dimensions and minimalincrease of 2 mm): No Change in features: No Change in ACR TI-RADS risk category: No ACR TI-RADS recommendation: No further follow-up IMPRESSION: 1. Interval change in right thyroid nodule 1, now classified as TR 4given somewhat hypoechoic echogenicity. Follow-up ultrasound in one [...] Lizandro Diaz MD on 05/21/2023 11:02 AM Alan Davenpotr MD US ORDERABLES * CARDIAC EKG ORDER (11/08/2022 2:36 PM CDT) Only the most recent of4 resultswithin the time period is included. Narrative 11/08/2022 2:36 PM CDT Ordered by an unspecified provider. Scanned Document CARDIAC SERVICES ORD ERABLES * NM MYOCARD PERF REST STRESS (11/06/2022 12:41 PM CDT) Only the most recent of2 resultswithin the time period is included. Anatomical Region Laterality Modality Chest Nuclear Medicine 11/06/2022 12:0 4 PM CDT Impressions 11/06/2022 4:28 PM CDT Impression: 1. No evidence of myocardial infarction or stress-induced ischemia. 2. Mildly reduced cardiac function with calculated left ventricular ejection fraction of 46%. 3. Incidental findings in the CT portion of the study, as per above. > Dictated by Neeraj Johnson MD (Main Entree Cook And Cashier) 11/06/2022 12:04 PM I, Ariel Araya MD have personally reviewed and interpreted this examination/study. > Interpreting Provider: Ariel Araya MD on 11/06/2022 4:28 PM Narrative 11/06/2022 4:28 PM CDT PROCEDURE: ??NM MYOCARD PERF REST STRESS DATE/TIME OF EXAM: ??11/06/2022 12:41 PM CLINICAL INFORMATION: None relevant/not provided if blank. 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 Comparison: Myocardial perfusion stress/rest imaging from 11/12/2021. Procedure: ?? The rest intravenous injection of 8.4 mCi of Tc-99m Myoview was administered IV in the right antecubital fossa. Myocardial perfusion imaging was performed 30 minutes post-injection. Preliminary rest EKG demonstrated no evidence of ischemic changes. At the conclusion of the rest imaging, pharmacologic stress testing was performed with 0.4 mg of Regadenoson administered IV in the right antecubital fossa over 10 seconds. No low-level exercise was performed in conjunction with the vasodilator infusion. The patient experienced no chest pain. Preliminary stress ECG demonstrated no evidence of ischemic changes. After approximately 10 seconds, the patient was injected with 24.6 mCi of Tc-99m Myoview IV in the right antecubital fossa. Gated SPECT/CT myocardial perfusion imaging was performed 30 minutes post-injection. Patient's BMI is 38.3 kg/m. Low-dose noncontrast CT of the region of the heart was performed for attenuation correction only. Calcium scoring: Multiple unenhanced computed tomographic images with a section thickness of 2.5 mm were obtained throughout the entire heart. Image acquisition use a low radiation dose ECG synchronized CT protocol with the breath-hold. Calcium quantification and scoring was performed using an independent workstation. The heart rate at rest was 56 at baseline and increased to 71 beats per minute during the vasodilator infusion. The BP was 153/70 at rest and 153/70 after the stress procedure. A separate ECG report will be read by Cardiology. Findings: The image quality is technically excellent without significant motion or adjacent bowel activity. In the stress and rest SPECT/CT images, the left ventricle is normal in size. The stress SPECT/CT images show a normal pattern of myocardial perfusion. ??There is no significant change in the perfusion [...] degenerative changes along the thoracic spine noted Procedure Note Ariel Araya MD - 11/06/2022 PROCEDURE: NM MYOCARD PERF REST STRESS DATE/TIME OF EXAM: 11/06/2022 12:41 PM CLINICAL INFORMATION: None relevant/not provided if blank. 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 Comparison: Myocardial perfusion stress/rest imaging from 11/12/2021. Procedure: The rest intravenous injection of 8.4 mCi of Tc-99m Myoview was administered IV in the right antecubital fossa. Myocardial perfusion imaging was performed 30 minutes post-injection. Preliminary rest EKG demonstrated no evidence of ischemic changes. At the conclusion of therest imaging, pharmacologic stress testing was performed with 0.4 mg of Regadenoson administered IV in the right antecubital fossa over 10seconds. No low-level exercise was performed in conjunction with the vasodilator infusion. The patient experienced no chest pain. Preliminary stress ECG demonstrated no evidence of ischemic changes. After approximately 10 seconds, the patient was injected with 24.6 mCi of Tc-99m Myoview IV inthe right antecubital fossa. Gated SPECT/CT myocardial perfusion imaging was performed 30 minutes post-injection. Patient's BMI is 38.3 kg/m. Low-dose noncontrast CT of the region of the heart was performed for attenuation correction only. Calcium scoring: Multiple unenhanced computed tomographic images with a section thickness of 2.5 mm were obtained throughout the entire heart. Image acquisition use a low radiation dose ECG synchronized CT protocol with the breath-hold. Calcium quantification and scoring was performed using an independent workstation. The heart rate at rest was 56 at baseline and increased to 71 beats per minute during the vasodilator infusion. The BP was 153/70 at rest and 153/70 after the stress procedure. A separate ECG report will be read by Cardiology. Findings: The image quality is technically excellent without significant motion or adjacent bowel activity. In the stress and rest SPECT/CT images, theleft ventricle is normal in size. The stress [...] atelectatic changes seen. Small volume ascites, degenerative changesalong the thoracic spine noted Impression: 1. No evidence of myocardial infarction or stress-induced ischemia. 2. Mildly reduced cardiac function with calculated left ventricular ejection fraction of 46%. 3. Incidental findings in the CT portion of the study, as per above. > Dictated by Neeraj Johnson MD (Main Entree Cook And Cashier) 11/06/2022 12:04PM I, Ariel Araya MD have personally reviewed and interpreted this examination/study. > Interpreting Provider: Ariel Araya MD on 11/06/2022 4:[address] MD NM ORDERABLES * STRESS TEST (11/06/2022 11:27 AM CDT) BSA 2.34 m2 SL RADIOLOGY Predicted METS 7.4 METS [facility] RADIOLOGY Target HR 131 bpm [facility] RADIOLOGY Max Age Predicted HR 154 bpm [facility] RAD[facility] Baseline HR 56 bpm [facility] RAD[facility] Stress peak HR 71 bpm [facility] RADIOLOGY Max HR Percent 46 % [facility] RADIOLOGY Baseline BP 153/70 mmHg [facility] RADIOLOGY Post peak BP 153/70 mmHg [facility] RADIOLOGY Target HR Percent 54 % [facility] RADIOLOGY Anatomical Region Laterality Modality Cardiac Electrop hysiology Narrative 11/06/2022 3:12 PM CDT ?ECG: The ECG was negative for ischemia. ?Please see nuclear imaging under separate report 1110- Pt to [facility] procedure room for Lexiscan stress test. Assessment completed. 1113- VSS 1116- Informed consent obtained by Dr. Johnson. Physician remained at bedside during stress portion of test. 1118- Lexiscan/Myoview administered per NM tech, pt c/o dyspnea, VSS 32479- Test complete, VSS, symptoms resolved. IV dc'd. Patient ambulated to waiting room, awaiting post stress imaging. Patient given water to drink. Stress Findings A pharmacological stress test was performed using regadenoson (0.4 mg). The patient reported dyspnea during the stress test. Symptoms began at minute 1 during stress and ended at minute 2 during recovery. The patient reached the end of the protocol. The target heart rate was 131 bpm. A peak heart rate of 71 bpm (46 % of max predicted heart rate) was achieved. Blood pressure demonstrated a normal response and heart rate demonstrated a normal response to stress. The patient's resting blood pressure was 153/70 mmHg. The patient's peak stress blood pressure was 153/70 mmHg. ECG Resting ECG: Abnormal. Exhibits sinus bradycardia. ECG demonstrates incomplete right bundle branch block. Left axis deviation. Prolonged QT The ECG was negative for ischemia. Scott Lane MD CARDIAC SERVIC ES CUPID * ECHO COMPLETE (11/06/2022 9:51 AM CDT) BSA 2.6822180 m2 [facility] CV FUJ I PACS LV biplane EF 63 52 - 72 % [facility] CV FUJI PACS LV A2C EF 56 48 - 76 % [facility] CV FUJ I PACS LV A4C EF 67 46 - 74 % [facility] CV FUJ I PACS LVOT stroke vol 75.67 mL SSM CV FUJI PACS LVOT stroke vol index 31.64 ml/m2 SSM CV FUJI PACS LV stroke vol 2D teich 46.201 ml SSM CV FUJI PACS LV stroke vol index A4C MOD 100.964 ml/m2 SSM CV FUJI PACS LV Stroke Index 2D Teich 19.32 mL/m2 SSM CV FUJI PACS LVIDd 3.96 4.2 - 5.8 cm SSM CV FUJI PACS LVIDs 2.48 2.5 - 4.0 cm SSM CV FUJI PACS IVSd 2D 1.504 0.6 - 1 cm SSM CV FUJI PACS LVPWd 1.17 cm SSM CV FUJ I PACS Fractional Shortening 2D 37 28 - 44 % [facility]SM CV FUJI PACS LV ESV BP 67.757 21 - 61 mL SSM CV FUJI PACS LV ESV index BP 28.3 11 - 31 mL/m2 SSM CV FUJI PACS LV ESV A2C 50.045 15 - 75 mL SSM CV FUJI PACS LV ESV index A2C 20.93 9 - 37 mL/m2 SSM CV FUJI PACS LV EDV BP 181.305 mL SSM CV FUJ I PACS LV ESV A4C 92.118 22 - 78 mL SSM CV FUJI PACS LV ESV index A4C 38.52 12 - 40 mL/m2 SSM CV FUJI PACS LV EDV index BP 75.8 34 - 74 mL/m2 SSM CV FUJI PACS LV EDV A2C 210.398 59 - 175 mL SSM CV FUJI PACS LV EDV index A2C 87.98 31 - 87 mL/m2 SSM CV FUJI PACS LV EDV A4C 151.009 mL SSM CV FU JI PACS LV ESV 2D 21.94 21 - 61 mL SSM CV FUJI PACS LV EDV index A4C 63.14 37 - 93 mL/m2 SSM CV FUJI PACS LV ESV index 2D 9.17 11 - 31 mL/m2 SSM CV FUJI PACS LV EDV 2D 68.141 62 - 150 mL SSM CV FUJI PACS LV EDV index 2D 28.49 34 - 74 mL/m2 SSM CV FUJI PACS LVOT diam 2.0 cm SSM CV FUJ I PACS LVOT area 2.99 cm2 SSM CV FUJ I PACS LV RWT 0.589 SSM CV FUJ I PACS LV [place] A2C 9.372 cm SSM CV F UJI PACS LV [place] A4C 9.017 cm SSM CV F UJI PACS IVS/LVPW 1.291 SSM CV FUJ I PACS LV mass 2D 167.184 96 - 200 g SSM CV FUJI PACS LV mass index 2D 69.91 50 - 102 g/m2 SSM CV FUJI PACS MV E pk dontrell 90.026 cm/s SSM CV F UJI PACS MV avg E/e' ratio 17.826 SS M CV FUJI PACS MV A pk dontrell 105.462 cm/s SSM CV F UJI PACS MV E A ratio 0.85 SSM CV FUJI PACS MV E' lateral dontrell 5.515 cm/s SS M CV FUJI PACS MV DT 269 ms SSM CV FUJ I PACS MV E' septal dontrell 4.658 cm/s SSM CV FUJI PACS MV A duration 163 ms SSM CV FUJI PACS MV E/e' septal 19.329 SSM C V FUJI PACS MV E/e' lateral 16.324 SSM CV FUJI PACS TR pk dontrell 278.3 cm/s SSM CV FUJ I PACS P vein A dontrell 32.0 cm/s SSM CV FUJI PACS P vein A duration 117 ms SS M CV FUJI PACS P vein S/D ratio 1.18 SSM CV FUJI PACS LVOT pk dontrell 1.04 m/s SSM CV F UJI PACS LVOT mn dontrell 0.65 m/s SSM CV F UJI PACS LVOT mn grad 2.1 mmHg SSM CV FUJI PACS LVOT Cardiac Output 4.099 l/min SSM CV FUJI PACS LVOT Cardiac Index 1.71 l/min/m2 SSM CV FUJI PACS Qp:Qs 1.30 SSM CV FUJ I PACS LA size 5.204 3.0 - 4.0 cm SSM CV FUJI PACS LA vol BP A-L 128.701 mL SSM CV FUJI PACS RV-moffett basal diam 4.7 2.5 - 4.1 cm SSM CV FUJI PACS RV-moffett longitudinal diam 9.6 5.9 - 8.3 cm SSM CV FUJI PACS RVIDd 4.0 cm SSM CV FUJ I PACS RVOT diam Doppler 3.012 cm SS M CV FUJI PACS RVOT area Doppler 7.13 cm2 SS M CV FUJI PACS RVOT stroke vol 98.13 cm3 SSM CV FUJI PACS RVOT VTI 13.78 cm SSM CV [facility] I PACS TV S' dontrell 234.54 SSM CV [facility] I PACS TAPSE 2.378 1.7 cm SSM CV [facility] I PACS RVOT pk dontrell 0.69 m/s SSM CV F UJI PACS RA area 19.688 cm2 SSM CV [facility] I PACS AV mn grad 4 mmHg SSM CV FU JI PACS AV pk grad 7 mmHg SSM CV FU JI PACS AV mn dontrell 0.87 m/s SSM CV [facility] I PACS AV pk dontrell 1.28 m/s SSM CV [facility] I PACS AV VTI 28.508 cm SSM CV [facility] I PACS LVOT pk grad 4.311 mmHg SSM CV FUJI PACS LVOT VTI 25.353 cm SSM CV FUJ I PACS AV area cont VTI 2.7 cm2 SSM CV FUJI PACS AV area pk dontrell 2.4 cm2 SSM C V FUJI PACS AV Doppler dontrell index pk dontrell 0.81 SSM CV FUJI PACS LVOT stroke vol index 31.6 mL/m2 SSM CV FUJI PACS Dimensionless Index 0.889 SSM CV FUJI PACS MV decel slope 335.122 cm/s2 SSM C V FUJI PACS TV annulus 4.10 cm SSM CV FU JI PACS TR VTI 84.5 cm SSM CV FUJ I PACS TR pk grad 31 mmHg SSM CV FU JI PACS RVOT mn grad 1 mmHg SSM CV FUJI PACS RVOT pk grad 2 mmHg SSM CV FUJI PACS PV area cont eq 5.6 cm2 SSM CV FUJI PACS PV mn grad 1 mmHg SSM CV FU JI PACS PV pk dontrell 77.002 cm/s SSM CV FUJ I PACS PV pk grad 2 mmHg SSM CV FU JI PACS PV VTI 17.607 cm SSM CV FUJ I PACS PV mn dontrell 55.57 cm/s SSM CV FUJ I PACS Ascending aorta 3.42 cm SSM CV FUJI PACS IVC size 1.8 cm SSM CV FUJ I PACS LA ESV A4C MOD Index 40 ml/m2 SSM CV FUJI PACS LA ESV A2C MOD Index 66 ml/m2 SSM CV FUJI PACS [id number] 7.967 cm SSM CV FUJ I PACS [id number] 8.115 cm SSM CV FUJ I PACS Prox Asc Ao Diameter Index 1.428 cm SSM CV FUJI PACS LV stroke vol BP 113.549 mL SSM CV FUJI PACS LVIDs index 1.04 1.3 - 2.1 cm/m2 SSM CV FUJI PACS LV LVIDd index 1.65 2.2 - 3.0 cm/m2 SSM CV FUJI PACS Anatomical Region Laterality Modality Ultrasound Narrative 11/06/2022 12:19 PM CDT ?Left??Ventricle: Left ventricle size is normal. Mildly increased wall thickness. Ventricular mass is normal. Normal systolic function. EF by 2D [place] biplane is 63%. Normal wall motion. Grade II diastolic dysfunction with elevated left atrial pressure. ?Left??Atrium: Left atrium is severely dilated. Left Ventricle [...] structure is normal. Mild regurgitation. No stenosis. Ascending Aorta Normal sized sinus of Valsalva (aortic root) and ascending aorta. Pericardium No pericardial effusion. Study Details Study quality was good. A complete 2D, color Doppler, spectral Doppler and M- mode echocardiogram was performed. The apical, parasternal and subcostal views were obtained. Patient exhibited sinus rhythm. Prior Study Prior TTE study available for comparison. Prior study date: 11/07/2021. Procedure Note Juliette Sandovla MD - 11/06/2022 ? ? Left??Ventricle: Left ventricle size is normal. Mildly increased wallthickness. Ventricular mass is normal. Normal systolic function. EF by 2DSimpson biplane is 63%. Normal wall motion. Grade II diastolic dysfunctionwith elevated left atrial pressure. ? ? Left??Atrium: Left atrium is severely dilated. Scott Lane MD E[facility] * HLA ANTIBODY SCREEN LUM CLASS 2 SAB (10/28/2022 2:38 PM CDT) Only the most recent of6 resultswithin the time period is included. % PRA 0 11/13/2022 11:59 AM CDT [facility] ([facility]) Class 2 LUM SAB Moderate Risk DQB1*06:01, 06:03 11/13/2022 11:59 AM CDT [facility] ([facility]) Class 2 SAB Test Date [id number] 11/13/2022 11:59 AM CDT [facility] ([facility]) Comment: This test was developed and its performance characteristics determined by the [facility]. ??It has not been cleared or approved by the U.S. Food and Drug Administration. ??The FDA has determined that such clearance or approval is not necessary. ??This test is used for clinical purposes. ??It should not be regarded as investigational or for research. This laboratory is certified under the Clinical Laboratory Improvement Amendments of 1988 (CLIA-88) as qualified to perform high complexity clinical laboratory testing. ??CLIA ID# [id number] Performed at: [facility], [address], [place] ??[address] Nursing Techn:Dr. Juno Ledesma, PhD, Blood BLOOD SPECIMEN / Unknown No Charge Blood Draw / Unknown 10/28/2022 2:38 PM CDT 11/07/2022 2:38 PM CDT Alan Davenport MD LAB - BLOOD BANK ORD ERABLES [facility] ([facility]) [address] [place] [address], [facility] * HLA ANTIBODY SCREEN LUM CLASS 1 SAB (10/28/2022 2:38 PM CDT) Only the most recent of6 resultswithin the time period is included. % PRA 0 11/13/2022 11:59 AM CDT [facility] ([facility]) Class 1 SAB Test Date [id number] 11/13/2022 11:59 AM CDT [facility] ([facility]) Comment: This test was developed and its performance characteristics determined by the [facility]. ??It has not been cleared or approved by the U.S. Food and Drug Administration. ??The FDA has determined that such clearance or approval is not necessary. ??This test is used for clinical purposes. ??It should not be regarded as investigational or for research. This laboratory is certified under the Clinical Laboratory Improvement Amendments of 1988 (CLIA-88) as qualified to perform high complexity clinical laboratory testing. ??CLIA ID# [id number] Performed at: [facility], [address], [place] ??[address] Nursing Techn:Dr. Juno Ledesma, PhD, Blood BLOOD SPECIMEN / Unknown No Charge Blood Draw / Unknown 10/28/2022 2:38 PM CDT 11/07/2022 2:38 PM CDT Alan Davenport MD LAB - BLOOD BANK ORD ERABLES [facility] ([facility]) [address] [place] [address], [facility] * OXALATE BLOOD (03/04/2022 11:04 AM RADIO AERIAL INSTALLER) Oxalate <2.0 <=2.0 umol/L 03/09/2022 6:49 PM RADIO AERIAL INSTALLER [facility] ([facility]) Comment: INTERPRETIVE INFORMATION: Oxalate, Plasma This test was developed and its performance characteristics determined by [employer]. It has not been cleared or approved by the US Food and Drug Administration. This test was performed in a CLIA certified laboratory and is intended for clinical purposes. Performed By: [facility] [address] [place] [address] [employer] En[employer] Technician: Mk Egan MD, PhD Blood BLOOD SPECIMEN / Unknown Lab Venipuncture / Unknown 03/04/2022 11:04 AM RADIO AERIAL INSTALLER 03/04/2022 11:08 AM RADIO AERIAL INSTALLER Scott Lane MD LAB - CHEMISTR Y ORDERABLES Performing Organization Address [facility]/ZIP Co de Phone Number [facility] ([facility]) [address] * MRI ABDOMEN WWO CONTRAST (03/04/2022 10:47 AM RADIO AERIAL INSTALLER) Anatomical Region Laterality Modality Abdomen Magnetic Resonan ce 03/04/2022 11:0 9 AM RADIO AERIAL INSTALLER Impressions 03/04/2022 1:36 PM RADIO AERIAL INSTALLER Impression: 1.Focally decreased signal on opposed-phase images in hepatic segment 1 without abnormal enhancement is most likely representing focal steatosis. No enhancing liver lesion. 2.2.2 x 2.4 cm heterogeneously enhancing lesion at the upper pole of the left kidney, concerning for renal cell carcinoma. 3.A 3.2 cm exophytic structure at the lower pole of the left kidney with thick enhancing capsule with little or no internal enhancement, likely representing a complex cyst, Bosniak 2F. Attention on follow-up imaging is recommended. 4.Polycystic kidney disease with multiple cysts in both kidneys, many of them are hemorrhagic. Report dictated by Ashkan Almeida MD (president financial institution). I, Watson Phillips MD have personally reviewed and interpreted this examination/study. > Interpreting Provider: Watson Phillips MD on 03/04/2022 1:36 PM Narrative 03/04/2022 1:36 PM RADIO AERIAL INSTALLER PROCEDURE: ??MRI ABDOMEN WWO CONTRAST, DATE/TIME OF EXAM: ??03/04/2022 10:47 AM, LOCATION ??[facility] INDICATION: Z01.818: Pre-transplant evaluation for kidney transplant ADDITIONAL CLINICAL INFORMATION: Ordering Provider Reason For Exam: ??evaluate nodules on liver COMPARISON: CT chest without contrast dated 07/04/2020 and 03/04/2022 TECHNIQUE: MRI of the abdomen was performed prior to and following the uneventful administration of 20 mL of Dotarem intravenous gadolinium contrast according to standard protocol. Findings: Lower Chest: Normal. Hepatobiliary system Liver morphology: Normal size with smooth surface contour. Ill-defined area of decreased signal on opposed images in hepatic segment one (series 5, image 30) without abnormal enhancement is likely representing focal steatosis. Steatosis: As above Varices: None. Spleen: Normal. Ascites: None. Hepatic vasculature Portal and hepatic veins: Patent. Arterial anatomy: Conventional. Gallbladder and bile ducts Gallbladder: Absent. Bile ducts: Nondilated. Retroperitoneum Pancreas: Normal. Adrenals: Normal. Kidneys: There are innumerable cysts in both kidneys. Several T1 hyperintense cysts in both kidneys are compatible with hemorrhagic cysts. There is a 2.2 x 2.4 cm heterogeneously enhancing lesion at the upper pole of the left kidney (series 16, image 39. A 3.2 x 3.2 cm exophytic structure at the lower pole of the left kidney with thick enhancing capsule and internal heterogeneous T1 and T2 hyperintense areas. There is a minimally complexed 3.3 x 3.9 cm posterior exophytic cyst with thin internal septation (series 11, image 64). No hydronephrosis. Lymph nodes: No lymphadenopathy. Gastrointestinal: Imaged bowel and mesentery are normal. Intraosseous hemangioma at T12 and L4 vertebral body are incidentally noted. Procedure Note Watson Phillips MD - 03/04/2022 PROCEDURE: MRI ABDOMEN WWO CONTRAST, DATE/TIME OF EXAM: 0:47 AM, LOCATION [facility] INDICATION: Z01.818: Pre-transplant evaluation for kidney transplant ADDITIONAL CLINICAL INFORMATION: Ordering Provider Reason For Exam: evaluate nodules on liver COMPARISON: CT chest without contrast dated 07/04/2020 and 03/04/2022 TECHNIQUE: MRI of the abdomen was performed prior to and following the uneventful administration of 20 mL of Dotarem intravenous gadolinium contrast according to standard protocol. Findings: Lower Chest: Normal. Hepatobiliary system Liver morphology: Normal size with smooth surface contour. Ill-definedarea of decreased signal on opposed images in hepatic segment one (series 5, image 30) without abnormal enhancement is likely representing focal steatosis. Steatosis: As above Varices: None. Spleen: Normal. Ascites: None. Hepatic vasculature Portal and hepatic veins: Patent. Arterial anatomy: Conventional. Gallbladder and bile ducts Gallbladder: Absent. Bile ducts: Nondilated. Retroperitoneum Pancreas: Normal. Adrenals: Normal. Kidneys: There are innumerable cysts in both kidneys. Several T1 hyperintense cysts in both kidneys are compatible with hemorrhagiccysts. There is a 2.2 x 2.4 cm heterogeneously enhancing lesion at the upperpole of the left kidney (series 16, image 39. A 3.2 x 3.2 cm exophytic structure at the lower pole of the left kidney with thick enhancing capsule and internal heterogeneous T1 and T2 hyperintense areas. There is a minimally complexed 3.3 x 3.9 cm posterior exophytic cystwith thin internal septation (series 11, image 64). No hydronephrosis. Lymph nodes: No lymphadenopathy. Gastrointestinal: Imaged bowel and mesentery are normal. Intraosseous hemangioma at T12 and L4 vertebral body are incidentally noted. Impression: 1.Focally decreased signal on opposed-phase images in hepatic segment 1 without abnormal enhancement is most likely representing focalsteatosis. No enhancing liver lesion. 2.2.2 x 2.4 cm heterogeneously enhancing lesion at the upper pole of the left kidney, concerning for renal cell carcinoma. 3.A 3.2 cm exophytic structure at the lower pole of the left kidney with thick enhancing capsule with little or no internal enhancement, likely representing a complex cyst, Bosniak 2F. Attention on follow-up imagingis recommended. 4.Polycystic kidney disease with multiple cysts in both kidneys, many of them are hemorrhagic. Report dictated by Ashkan Almeida MD (president financial institution). Watson Leigh MD have personally reviewed and interpreted this examination/study. > Interpreting Provider: Watson Phillips MD on 03/04/2022 1:[address] MD MR ORDERABLES * CT CHEST WO CONTRAST (03/04/2022 10:43 AM RADIO AERIAL INSTALLER) Only the most recent of2 resultswithin the time period is included. Anatomical Region Laterality Modality Chest Computed Tomogra phy 03/04/2022 11:1 0 AM RADIO AERIAL INSTALLER Impressions 03/04/2022 12:25 PM RADIO AERIAL INSTALLER Impression: 1.Unchanged left lower lobe pulmonary nodules. [...] likely hemorrhagic/proteinaceous in nature. > Dictated by Luis Muñoz DO (president financial institution). Wilfrid Leigh have personally reviewed and interpreted this examination/study. > Interpreting Provider: Wilfrid Fonseca on 03/04/2022 12:25 PM Narrative 03/04/2022 12:25 PM RADIO AERIAL INSTALLER PROCEDURE: ??CT CHEST WO CONTRAST, DATE/TIME OF EXAM: ??03/04/2022 10:43 AM, LOCATION ??[facility] INDICATION: Z01.818: Pre-transplant evaluation for kidney transplant ADDITIONAL CLINICAL INFORMATION: Ordering Provider Reason For Exam: ??evaluate nodule seen in LLL. COMPARISON: CT chest from 07/04/2020 TECHNIQUE: CT of the chest was performed without contrast according to standard protocol. Findings: Evaluation of visceral and vascular structures [...] left midlung that is unchanged from prior. ??No pleural fluid or pneumothorax is present. Scattered [...] Fat-containing defect in the left diaphragmatic crura. Procedure Note Wilfrid Fonseca MD - 03/04/2022 PROCEDURE: CT CHEST WO CONTRAST, DATE/TIME OF EXAM: 03/04/2022 10:43AM, LOCATION [facility] INDICATION: Z01.818: Pre-transplant evaluation for kidney transplant ADDITIONAL CLINICAL INFORMATION: Ordering Provider Reason For Exam: evaluate nodule seen in LLL. COMPARISON: CT chest from 07/04/2020 TECHNIQUE: CT of the chest was performed without contrast according to standard protocol. Findings: Evaluation of visceral and vascular structures is degraded due to lackof intravenous contrast administration. Lower Neck and Axillae: Multiple subcentimeter to 1 cm calcified nodule within the inferior left thyroid. Consider further evaluation with thyroid ultrasound. Lungs: No pulmonary parenchymal or airway process is present. Multiplecalcified granulomas in the bilateral lungs. There is redemonstration of a solid subpleural nodule in the posterior left basal lung that is relatively unchanged in size from prior examination on 07/04/2020, measuring 7 mm. 5mm nodule in the left midlung that is unchanged from prior. No pleuralfluid or pneumothorax is present. Scattered atelectasis bilaterally. Heart and Pericardium: The cardiac chambers are normal in size. Trace pericardialfluid/thickening is unchanged from prior. Coronary atherosclerosis of the left and right main coronary arteries as well as the left anterior descending arteryand the left circumflex artery. Mitral annular calcification at Mediastinum and Sandhya: Right lower paratracheal lymph node measuring 1 cm, similar to priorexam. However, there are calcified mediastinal lymph nodes in the right mediastinum. Thoracic Vasculature: The aorta and its branch vessels are atherosclerotic. Bones and Chest Wall: Bone windows demonstrate no suspicious lytic or blastic lesions. The visible osseous structures are intact. Degenerative changes of DJD andDDD with sporadic disc calcifications are seen in the spine. CT evidence of DISH throughout the thoracic spine. Upper Abdomen: Increased perihepatic ascites from prior examination with observed trace perisplenic is ascites. Patient is status post cholecystectomy with surgical clips noted in the gallbladder surgical fossa. Redemonstrationof multiple exophytic renal cysts associated with the left kidney are relatively unchanged some of which may be hemorrhagic/proteinaceous. Fat-containing defect in the left diaphragmatic crura. Impression: 1.Unchanged left lower lobe pulmonary nodules. No new suspiciouspulmonary nodules. 2.Multiple thyroid nodules measuring up to 1 cm. Consider further evaluation with thyroid ultrasound, if indicated. 3.Increased perihepatic ascites from prior examination with observedtrace perisplenic ascites. Redemonstration of multiple exophytic renal cysts associated with the left kidney, one associated with the right, some of which are likely hemorrhagic/proteinaceous in nature. > Dictated by Luis Muñoz DO (president financial institution). I, Wilfrid Fonseca have personally reviewed and interpreted this examination/study. > Interpreting Provider: Wilfrid Fonseca on 03/04/2022 12:[address] ORDERABLES * XR CHEST PA AND LATERAL (01/14/2022 10:12 AM RADIO AERIAL INSTALLER) Only the most recent of2 resultswithin the time period is included. Anatomical Region Laterality Modality Chest Radiographic Pastora ging 01/14/2022 10:2 3 AM RADIO AERIAL INSTALLER Narrative 01/14/2022 2:50 PM RADIO AERIAL INSTALLER PROCEDURE: ??XR CHEST 2VW, DATE/TIME OF EXAM: ??01/14/2022 10:12 AM, [facility] INDICATION: Z01.818: Pre-transplant evaluation for kidney transplant COMPARISON: CXR 08/02/2020 FINDINGS/IMPRESSION: A few calcific granulomas in bilateral perihilar regions and right upper lung are unchanged. Small opacity in the right middle lobe may represent subsegmental atelectasis. There is no confluent consolidation, pleural effusion, or pneumothorax. The cardiomediastinal silhouette is normal. Contiguous anterior flowing osteophytes in the thoracic spine may represent diffuse idiopathic skeletal hyperostosis. Report dictated by Ruddy Trivedi MD (president financial institution). Terry Leigh MD have personally reviewed and interpreted this examination/study. > Interpreting Provider: Terry De Leon MD on 01/14/2022 2:50 PM Procedure Note Tosha De Leon MD - 01/14/2022 PROCEDURE: XR CHEST 2VW, DATE/TIME OF EXAM: 01/14/2022 10:12 AM,LOCATION [facility] INDICATION: Z01.818: Pre-transplant evaluation for kidney transplant COMPARISON: CXR 08/02/2020 FINDINGS/IMPRESSION: A few calcific granulomas in bilateral perihilar regions and right upper lung are unchanged. Small opacity in the right middle lobe may represent subsegmental atelectasis. There is no confluent consolidation, pleural effusion, or pneumothorax. The cardiomediastinal silhouette is normal. Contiguous anterior flowing osteophytes in the thoracic spine mayrepresent diffuse idiopathic skeletal hyperostosis. Report dictated by Ruddy Trivedi MD (president financial institution). Terry Leigh MD have personally reviewed and interpreted this examination/study. > Interpreting Provider: Terry De Leon MD on 01/14/2022 2:50 PM Marbin Flores MD DIAGNOSTIC IMAGING O RDERABLES * (ABNORMAL) URINALYSIS COMPLETE W MICROSCOPIC (01/14/2022 9:59 AM RADIO AERIAL INSTALLER) Only the most recent of2 resultswithin the time period is included. Color UA Straw Straw, Yellow 01/14/2022 11:31 AM [facility] Clarity UA Clear Clear 01/14/2022 11:31 AM [facility] Specific [place] UA 1.025 1.005 - 1.030 01/14/2022 11:31 AM [facility] pH UA 7.0 5.0 - 8.0 pH 01/14/2022 11:31 AM [facility] Protein UA 3+(A) Negative 01/14/2022 11:31 AM [facility] Glucose UA Trace(A) Negative 01/14/2022 11:31 AM [facility] Ketone UA Negative Negative 01/14/2022 11:31 AM [facility] Bilirubin UA Negative Negative 01/14/2022 11:31 AM [facility] Blood UA 1+(A) Negative 01/14/2022 11:31 AM [facility] Nitrite UA Negative Negative 01/14/2022 11:31 AM [facility] Leukocyte Esterase Negative Negative 01/14/2022 11:31 AM [facility] Urobilinogen UA Negative Negative mg/dL 01/14/2022 11:31 AM [facility] RBC UA 6-10(A) None Seen, 0-2, 3-5 /HPF 01/14/2022 11:31 AM [facility] WBC UA 0-5 None Seen, 0-5 /HPF 01/14/2022 11:31 AM [facility] Bacteria UA Trace(A) None /HPF 01/14/2022 11:31 AM [facility] Squamous Epithelial Cells UA 0-2 None Seen, 0-2, 3-5 /HPF 01/14/2022 11:31 AM [facility] Mucus UA 1+ /LPF 01/14/2022 11:31 AM RADIO AERIAL INSTALLER [facility] Hyaline Casts UA 0-2 None Seen, 0-2 /LPF 01/14/2022 11:31 AM [facility] Urine URINE SPECIMEN OBTAINED BY CLEAN CATCH PROCEDURE / Unknown Collection / Unknown 01/14/2022 9:59 AM RADIO AERIAL INSTALLER 01/14/2022 10:47 AM RADIO AERIAL INSTALLER Narrative [facility] - 01/14/2022 11:31 AM RADIO AERIAL INSTALLER Marbin Flores MD LAB - URINALYSIS ORD ERABLES Performing Organization Address City/[facility]/ZIP Co de Phone Number [address] [address], [place] [phone] * PROTEIN URINE RANDOM QUANTITATIVE (01/14/2022 9:59 AM RADIO AERIAL INSTALLER) Only the most recent of2 resultswithin the time period is included. Protein Urine 365 Not Established mg/dL 01/14/2022 11:47 AM [facility] Comment:Result obtained by seema christianson. Urine URINE SPECIMEN OBTAINED BY CLEAN CATCH PROCEDURE / Unknown Collection / Unknown 01/14/2022 9:59 AM RADIO AERIAL INSTALLER 01/14/2022 10:47 AM RADIO AERIAL INSTALLER Marbin Flores MD LAB - URINE CHEMISTR Y ORDERABLES Performing Organization Address [facility]/[employer] Co de Phone Number [address] [address], [place] [phone] * CREATININE URINE RANDOM (01/14/2022 9:59 AM RADIO AERIAL INSTALLER) Only the most recent of2 resultswithin the time period is included. Creatinine Urine 81 Not Established mg/dL 01/14/2022 11:20 AM [facility] Urine URINE SPECIMEN OBTAINED BY CLEAN CATCH PROCEDURE / Unknown Collection / Unknown 01/14/2022 9:59 AM RADIO AERIAL INSTALLER 01/14/2022 10:47 AM RADIO AERIAL INSTALLER Marbin Flores MD LAB - URINE CHEMISTR Y ORDERABLES [facility] [address] [address], [facility] [phone] * CANNABINOID SCREEN BLOOD (01/14/2022 9:54 AM RADIO AERIAL INSTALLER) Only the most recent of2 resultswithin the time period is included. Marijuana Metabolites Negative 01/19/2022 8:07 PM RADIO AERIAL INSTALLER [facility] ([facility]) Comment:REFERENCE RANGE: thr shold: 5 ng/mL Specimen Type Comment 01/19/2022 8:07 PM RADIO AERIAL INSTALLER [facility] ([facility]) Comment: WHOLE BLOOD This specimen was screened by immunoassay at the thresholds listed above. Presumptive positive results have not been confirmed by an alternate method; results are intended for clinical medical purposes. Please contact the laboratory if confirmatory testing is desired. This test was developed and its performance characteristics determined by [employer]. It has not been cleared or approved by the Food and Drug Administration. Blood BLOOD SPECIMEN / Unknown Lab Venipuncture / Unknown 01/14/2022 9:54 AM RADIO AERIAL INSTALLER 01/14/2022 10:49 AM RADIO AERIAL INSTALLER Narrative [facility] ([facility]) - 01/19/2022 8:07 PM RADIO AERIAL INSTALLER Performed at: ??01 - [employer] [address] [place] [address] ??[id number] Nursing Techn: Ev Camarena [facility], Phone: ??[phone] Marbin Flores MD LAB - CHEMISTRY PK ZENG Performing Organization Address [facility]/[employer] Co de Phone Number [facility] ([facility]) [address] [place] [address] [place] * COCAINE METABOLITE QUANT (01/14/2022 9:54 AM RADIO AERIAL INSTALLER) Only the most recent of2 resultswithin the time period is included. Cocaine and Metabolite Blood <20 ng/mL 01/18/2022 12:32 AM RADIO AERIAL INSTALLER [facility] ([facility]) Comment: INTERPRETIVE INFORMATION: Cocaine Metabolite, Serum or ?Plasma, Quantitative Methodology: Quantitative Gas Chromatography- Mass Spectrometry/Quantitative Liquid Chromatography-Tandem Mass Spectrometry Positive cutoff: 20 ng/mL ?? For medical purposes only; not valid for forensic use. The concentration value must be greater than or equal to the cutoff to be reported as positive. Interpretive questions should be directed to the laboratory. This test was developed and its performance characteristics determined by [facility] [employer] It has not been cleared or approved by the [place] Food and Drug Administration. This test was performed in a CLIA certified laboratory and is intended for clinical purposes. Performed By: [place] [address] [employer] Fuel Enrichment Technician: Mk Egan MD, PhD Blood BLOOD SPECIMEN / Unknown Lab Venipuncture / Unknown 01/14/2022 9:54 AM RADIO AERIAL INSTALLER 01/14/2022 10:48 AM RADIO AERIAL INSTALLER Marbin Flores MD LAB - CHEMISTRY ORDE RABADELFO Performing Organization Address City/[facility]/ZIP Co de Phone Number [facility] ([facility]) [address] [place] [address] * SYPHILIS ANTIBODY CASCADING REFLEX (01/14/2022 9:54 AM RADIO AERIAL INSTALLER) Only the most recent of2 resultswithin the time period is included. [facility] Treponema pallidum Antibody Non-react sylvie Non-react sylvie 01/14/2022 11:52 AM RADIO AERIAL INSTALLER [facility] Comment: No Laboratory evidence of syphilis infection. ?? Note: ??Circulating antibodies may be low or undetectable in early infection. ??If recent exposure is suspected, re-draw sample in 2-4 weeks and repeat testing. Blood BLOOD SPECIMEN / Unknown Lab Venipuncture / Unknown 01/14/2022 9:54 AM RADIO AERIAL INSTALLER 01/14/2022 10:48 AM RADIO AERIAL INSTALLER Marbin Flores MD LAB - SEROLOGY ORDER MICHELLE [address] [address], [place] [phone] * AMPHETAMINE BLOOD CONFIRMATION (01/14/2022 9:54 AM RADIO AERIAL INSTALLER) Only the most recent of2 resultswithin the time period is included. Pathologist [facility] Amphetamines Confirmation <20 ng/mL 2022 12:55 AM [facility] [employer] ([facility]) Comment: INTERPRETIVE INFORMATION: Amphetamines, Serum or ?Plasma, Quantitative Methodology: Quantitative Liquid Chromatography-Tandem Mass Spectrometry Positive cutoff: 20 ng/mL For medical purposes only; not valid for forensic use. The absence of expected drug(s) and/or drug metabolite(s) may indicate non-compliance, inappropriate timing of specimen collection relative to drug administration, poor drug absorption, or limitations of testing. ??The concentration value must be greater than or equal to the cutoff to be reported as positive. Interpretive questions should be directed to the laboratory. This test was developed and its performance characteristics determined by [employer]. It has not been cleared or approved by the US Food and Drug Administration. This test was performed in a CLIA certified laboratory and is intended for clinical purposes. Methamphetamine Confirmation <20 ng/mL 2022 12:55 AM [facility]) MDA Confirmation <20 ng/mL 01/21/20 22 12:55 AM [facility]) MDMA Confirm <20 ng/mL 2022 12:55 AM [facility]) MDEA Confirmation <20 ng/mL 022 12:55 AM [facility]) Comment: Performed By: [employer] [address] [place] [address] Nuclear [employer] Enrichment Technician: Mk Egan MD, PhD Blood BLOOD SPECIMEN / Unknown Lab Venipuncture / Unknown 01/14/2022 9:54 AM RADIO AERIAL INSTALLER 01/14/2022 10:48 AM RADIO AERIAL INSTALLER Marbin Flores MD LAB - CHEMISTRY PK ZENG [facility] [employer] [facility]) [address] [place] [address], [facility] * QUANTIFERON-TB GOLD PLUS 4-TUBE (01/14/2022 9:54 AM RADIO AERIAL INSTALLER) Only the most recent of2 resultswithin the time period is included. [facility] QuantiFERON NIL 0.02 IU/mL 1:41 AM [facility] [employer] [facility]) Comment: Performed By: [employer] [address] [place] [address] Nuclear Fuel Enrichment Technician: Mk Egan MD, PhD QuantiFERON TB Gold Plus Negative Negative 01/17/2022 1:41 AM [facility]) Comment: Interpretive Data: Quantiferon TB Gold Plus Interferon gamma release is measured for specimens from each of the four collection tubes. A qualitative result (Negative, Positive, or Indeterminate) is based on interpretation of the four values, NIL, MITOGEN minus NIL (MITOGEN-NIL), TB1 minus NIL (TB1-NIL), and TB2 minus NIL (TB2-NIL). The NIL value represents nonspecific reactivity produced by the patient specimen. The MITOGEN-NIL value serves as the positive control for the patient specimen, demonstrating successful lymphocyte activity. The TB1-NIL tube specifically detects CD4+ lymphocyte reactivity, specifically stimulated by the TB1 antigens. The TB2-NIL tube detects both CD4+ and CD8+ lymphocyte reactivity, stimulated by TB2 antigens. An overall Negative result does not completely rule out TB infection. A false-positive result in the absence of other clinical evidence of TB infection is not uncommon. Refer to: Updated Guidelines for Using Interferon Gamma Release Assays to Detect Mycobacterium tuberculosis Infection --- [place], 2010 (http://www.cdc.gov/mmwr/preview/mmwrhtml/wh2316w3.htm), for more information concerning test performance in low-prevalence populations and use in occupational screening. QuantiFERON Plus TB1 Minus NIL 0.00 0.00 - 0.34 IU/mL 01/17/2022 1:41 AM RADIO AERIAL INSTALLER [employer] ([facility]) QuantiFERON Plus TB2 Minus NIL 0.01 0.00 - 0.34 IU/mL 01/17/2022 1:41 AM RADIO AERIAL INSTALLER [employer] [facility]) QuantiFERON Mitogen Minus NIL >10.00 IU/mL 01/17/2022 1:41 AM RADIO AERIAL INSTALLER [employer] [facility]) Blood BLOOD SPECIMEN / Unknown Lab Venipuncture / Unknown 01/14/2022 9:54 AM RADIO AERIAL INSTALLER 01/14/2022 10:49 AM RADIO AERIAL INSTALLER Marbin Flores MD LAB - CHEMISTRY PK ZENG [facility] ([facility]) [address] [place] [address] * (ABNORMAL) PTH INTACT ([facility]) (01/14/2022 9:54 AM RADIO AERIAL INSTALLER) Only the most recent of2 resultswithin the time period is included. PTH Intact 266.9(H) 8.0 - 77.0 pg/mL 01/14/2022 11:37 AM RADIO AERIAL INSTALLER [facility] LABORATORY [facility] Blood BLOOD SPECIMEN / Unknown Lab Venipuncture / Unknown 01/14/2022 9:54 AM RADIO AERIAL INSTALLER 01/14/2022 11:00 AM RADIO AERIAL INSTALLER Marbin Flores MD LAB - CHEMISTRY PK ZENG [address] [address], [facility] [phone] * HIV-1 HIV-2 ANTIBODY + HIV P24 AG PANEL (01/14/2022 9:54 AM RADIO AERIAL INSTALLER) [facility] HIV Antigen/Antibod y 1 & 2 Non-reacti ve Non-react sylvie 01/14/2022 11:52 AM RADIO AERIAL INSTALLER [facility] Comment:No Laboratory eviden ce of HIV infection. Blood BLOOD SPECIMEN / Unknown Lab Venipuncture / Unknown 01/14/2022 9:54 AM RADIO AERIAL INSTALLER 01/14/2022 10:48 AM RADIO AERIAL INSTALLER Marbin Flores MD LAB - CHEMISTRY PK ZENG [address] [address], [place] [phone] * OPIATES BLOOD (01/14/2022 9:54 AM RADIO AERIAL INSTALLER) Only the most recent of2 resultswithin the time period is included. Pathologist [facility] Opiates Screen Negative 01/19/2022 8:07 PM RADIO AERIAL INSTALLER [facility] ([facility]) Comment:REFERENCE RANGE: thr shold: 10 ng/mL Oxycodone Screen Negative 01/20/20 8:07 PM [facility] ([facility]) Comment:REFERENCE RANGE: thr shold: 10 ng/mL Specimen Type Comment 01/19/2022 8:07 PM [facility] ([facility]) Comment: WHOLE BLOOD This specimen was screened by immunoassay at the thresholds listed above. Presumptive positive results have not been confirmed by an alternate method; results are intended for clinical medical purposes. Please contact the laboratory if confirmatory testing is desired. This test was developed and its performance characteristics determined by [facility]. It has not been cleared or approved by the Food and Drug Administration. Blood BLOOD SPECIMEN / Unknown Lab Venipuncture / Unknown 01/14/2022 9:54 AM RADIO AERIAL INSTALLER 01/14/2022 10:49 AM RADIO AERIAL INSTALLER Narrative [facility] ([facility]) - 01/19/2022 8:07 PM RADIO AERIAL INSTALLER Performed at: ??01 - [employer] [address] ??[id number] Nursing Techn: Ev Camarena [facility], Phone: ??[phone] Marbin Flores MD LAB - CHEMISTRY ORDLien ZENG Performing Organization Address City/[facility]/ZIP Co de Phone Number [facility] ([facility]) [address] [place] [address] * URIC ACID BLOOD (01/14/2022 9:54 AM RADIO AERIAL INSTALLER) Only the most recent of2 resultswithin the time period is included. Uric Acid 7.0 3.5 - 7.2 mg/dL 01/14/2022 11:38 AM RADIO AERIAL INSTALLER [facility] Blood BLOOD SPECIMEN / Unknown Lab Venipuncture / Unknown 01/14/2022 9:54 AM RADIO AERIAL INSTALLER 01/14/2022 11:00 AM RADIO AERIAL INSTALLER Marbin Flores MD LAB - CHEMISTRY PK ZENG [address] [address], [facility] [phone] * STRONGYLOIDES ANTIBODY IGG (01/14/2022 9:54 AM RADIO AERIAL INSTALLER) Only the most recent of2 resultswithin the time period is included. Strongyloides Antibody IgG 0.1 <=0.9 IV 01/16/2022 1:02 AM RADIO AERIAL INSTALLER [employer] ([facility]) Comment: INTERPRETIVE INFORMATION: Strongyloides Ab, IgG by BRIDGER ??0.9 IV or less....... Negative - No significant ?level of Strongyloides IgG ?antibody detected. ??1.0 IV................Equivocal - The Strongyloides IgG ?antibody result is borderline and ?therefore inconclusive. Recommend ?retesting the patient in 2-4 weeks, ?if clinically indicated. ??1.1 IV or greater ... Positive - IgG antibodies to ?Strongyloides detected, which ?may suggest current or past ?infection. False-positive results may occur with prior exposure to other helminth infections. Testing low-prevalence populations may also result in false-positive results. Performed By: [employer] [address] [place] [address] Nuclear Fuel Enrichment Technician: Mk Egan MD, PhD Blood BLOOD SPECIMEN / Unknown Lab Venipuncture / Unknown 01/14/2022 9:54 AM RADIO AERIAL INSTALLER 01/14/2022 10:48 AM RADIO AERIAL INSTALLER Marbin Flores MD LAB - SEROLOGY ORDER MICHELLE Performing Organization Address City/[facility]/ZIP Co de Phone Number [facility] ([facility]) [address] [place] [address], [facility] * CYTOMEGALOVIRUS ANTIBODY IGG BLOOD (01/14/2022 9:54 AM RADIO AERIAL INSTALLER) Only the most recent of2 resultswithin the time period is included. Cytomegalovirus Antibody IgG <0.20 U/mL 01/15/2022 4:12 PM RADIO AERIAL INSTALLER [employer] ([facility]) Comment: INTERPRETIVE INFORMATION: Cytomegalovirus Antibody, IgG ??0.59 U/mL or less......... Not Detected ??0.6 - 0.69 U/mL........... Indeterminate-Repeat testing in ? 10-14 days may be helpful. ??0.70 U/mL or greater...... Detected In immunocompromised patients, CMV serology (IgG or IgM antibody titers) may not be reliable and may be misleading in the diagnosis of acute or reactivation CMV disease. The preferred method for diagnosis is culture of virus and/or demonstration of viral antigen in peripheral white cells (buffy coat), bronchoalveolar lavage (BAL) cells, or tissue biopsies. This test should not be used for blood donor screening, associated re-entry protocols, or for screening Human Cell, Tissues and Cellular and Tissue-Based Products (HCT/P). The best evidence for current infection is a significant change on two appropriately timed specimens, where both tests are done in the same laboratory at the same time. Performed By: [employer] [address] [place] [address] Nuclear Fuel Enrichment Technician: Mk Egan MD, PhD Blood BLOOD SPECIMEN / Unknown Lab Venipuncture / Unknown 01/14/2022 9:54 AM RADIO AERIAL INSTALLER 01/14/2022 10:48 AM RADIO AERIAL INSTALLER Marbin Flores MD LAB - CHEMISTRY ORDE [facility]NA [facility] [address] [place] [address], [facility] * TRANSFERRIN (01/14/2022 9:54 AM RADIO AERIAL INSTALLER) Only the most recent of2 resultswithin the time period is included. Pathologist [facility] Transferrin 176 174 - 382 mg/dL 01/14/2022 11:36 AM RADIO AERIAL INSTALLER [facility] Blood BLOOD SPECIMEN / Unknown Lab Venipuncture / Unknown 01/14/2022 9:54 AM RADIO AERIAL INSTALLER 01/14/2022 10:48 AM RADIO AERIAL INSTALLER Marbin Flores MD LAB - CHEMISTRY ORDE AZUCENA Performing Organization Address City/[facility]/ZIP Co de Phone Number [address] [address], [facility] [phone] * TOXOPLASMA GONDII ANTIBODY IGG (01/14/2022 9:54 AM RADIO AERIAL INSTALLER) Only the most recent of2 resultswithin the time period is included. [facility] Toxoplasma Antibody IgG <3.0 IU/mL 01/15/2022 4:23 PM RADIO AERIAL INSTALLER [facility] ([facility]) Comment: INTERPRETIVE INFORMATION: Toxoplasma Ab, IgG ??7.1 IU/mL or less....... Not Detected ??7.2-8.7 IU/mL .......... Indeterminate-Repeat testing in ? 10-14 days may be helpful. ??8.8 IU/mL or greater ... Detected The best evidence for current infection is a significant change on two appropriately timed specimens, where both tests are done in the same laboratory at the same time. This test should not be used for blood donor screening, associated re-entry protocols, or for screening Human Cell, Tissues and Cellular and Tissue-Based Products (HCT/P). The magnitude of the measured result is not indicative of the amount of antibody present. Performed By: [employer] [address] [place] [address] Nuclear Fuel Enrichment Technician: Mk Egan MD, PhD Blood BLOOD SPECIMEN / Unknown Lab Venipuncture / Unknown 01/14/2022 9:54 AM RADIO AERIAL INSTALLER 01/14/2022 10:48 AM RADIO AERIAL INSTALLER Marbin Flores MD LAB - CHEMISTRY PK ZENG [facility] ([facility]) [address] [place] [address] * (ABNORMAL) HEMOGLOBIN A1C (01/14/2022 9:54 AM RADIO AERIAL INSTALLER) Only the most recent of2 resultswithin the time period is included. Pathologist [facility] Hemoglobin A1c 8.7(H) <=5.6 % 01/14/2022 1:10 PM RADIO AERIAL INSTALLER [facility] Estimated Average Glucose 203 mg/dL 01/14/2022 1:10 PM RADIO AERIAL INSTALLER [facility] Comment: HbA1c Interpretation: Normal : < 5.7% Pre-diabetes: 5.7-6.4% Diabetes: Equal to or greater than 6.5% Test results diagnostic of diabetes should be repeated for confirmation. Treatment target values recommended by ADA and other clinical organizations should be used to evaluate metabolic control in patients. Reference: [place] Diabetes Association, Standards of Care in Diabetes -2020 In patients 70 years and older consider HbA1c target range of 7.0-7.5% (Reference: [employer] et al. JAMDA. 2012) The Sebia assay for the measurement of HbA1c is a National Glycohemoglobin Standardization Program (NGSP) certified method. Blood BLOOD SPECIMEN / Unknown Lab Venipuncture / Unknown 01/14/2022 9:54 AM RADIO AERIAL INSTALLER 01/14/2022 11:00 AM RADIO AERIAL INSTALLER Marbin Flores MD LAB - CHEMISTRY PK ZENG [facility] LABORATORY [facility] [address] [place] [address], [facility] [phone] * VITAMIN D 25-HYDROXY (01/14/2022 9:54 AM RADIO AERIAL INSTALLER) Only the most recent of2 resultswithin the time period is included. Vitamin D, 25 Hydroxy 39.0 30.0 - 80.0 ng/mL 01/14/2022 11:47 AM [facility] Comment: The recommendations for 25-Hydroxy Vitamin D clinical decision points are as follows: ? Deficient: ? <20.0 ng/mL ? Insufficient: ? 20.0 - 29.9 ng/mL ? Sufficient: ? 30.0 - 100.0 ng/mL ? Potential Toxicity: ??>100 ng/mL Reference: The Endocrine Society Clinical Practice Guidelines. 2011 If the 25-Hydroxy Vitamin D results are inconsitent with clinical evidence, it is recommended that follow-up testing using a method such as LC/MS/MS be performed to confirm the result. ? Blood BLOOD SPECIMEN / Unknown Lab Venipuncture / Unknown 01/14/2022 9:54 AM RADIO AERIAL INSTALLER 01/14/2022 11:00 AM [facility] Marbin Flores MD LAB - CHEMISTRY PK ZENG Performing Organization Address [facility]/State/[place] Co de Phone Number [address] [address], [facility] [phone] * NICOTINE + METABOLITES BLOOD (01/14/2022 9:54 AM RADIO AERIAL INSTALLER) Only the most recent of2 resultswithin the time period is included. Nicotine <5 ng/mL 01/17/2022 2:23 PM RADIO AERIAL INSTALLER [employer] ([facility]) Comment: Consistent with abstinence from nicotine-containing products for at least 1 week. INTERPRETIVE INFORMATION: Nicotine and Metabolites, ?Serum or Plasma, ?Quantitative Methodology: Quantitative Liquid Chromatography-Tandem Mass Spectrometry Positive cutoff: 5 ng/mL For medical purposes only; not valid for forensic use. This test is designed to evaluate recent use of nicotine-containing products. ??Passive and active exposure cannot be discriminated definitively, although a cutoff of 10 ng/mL cotinine is frequently used for surgery qualification purposes. ?? For smoking cessation programs or compliance testing, the absence of expected drug(s) and/or drug metabolite(s) may indicate non-compliance, inappropriate timing of specimen collection relative to drug administration, poor drug absorption, or limitations of testing. This test cannot distinguish between use of tobacco and purified nicotine products. The concentration value must be greater than or equal to the cutoff to be reported as positive. ?? This test was developed and its performance characteristics determined by [facility]. It has not been cleared or approved by the US Food and Drug Administration. This test was performed in a CLIA certified laboratory and is intended for clinical purposes. Performed By: [facility] [employer] [address] [place] [address] Nuclear Fuel Enrichment Technician: Mk Egan MD, PhD Cotinine <5 ng/mL 01/17/2022 2:23 PM RADIO AERIAL INSTALLER [facility] ([facility]) Blood BLOOD SPECIMEN / Unknown Lab Venipuncture / Unknown 01/14/2022 9:54 AM RADIO AERIAL INSTALLER 01/14/2022 10:48 AM RADIO AERIAL INSTALLER Marbin Flores MD LAB - CHEMISTRY PK ZENG [facility] Organization Address City/State/ZIP Co de Phone Number [facility]) [address] [place] [address] * (ABNORMAL) CBC W AUTO DIFFERENTIAL (01/14/2022 9:54 AM RADIO AERIAL INSTALLER) Only the most recent of4 resultswithin the time period is included. WBC 7.4 3.5 - 10.5 10? 3 /uL 01/14/2022 11:33 AM [facility] RBC 3.19(L) 4.30 - 5.70 10? 6 /uL 01/14/2022 11:33 AM [facility] Hemoglobin 9.7(L) 12.0 - 17.6 g/dL 01/14/2022 11:33 AM [facility] Hematocrit 28.9(L) 35.2 - 51.7 % 01/14/2022 11:33 AM [facility] MCV 90.6 80.7 - 98.3 fL 01/14/2022 11:33 AM [facility] MCH 30.4 26.7 - 34.0 pg 01/14/2022 11:33 AM [facility] MCHC 33.6 30.8 - 35.9 g/dL 01/14/2022 11:33 AM [facility] RDW-SD 47.2 36.0 - 50.0 fL 01/14/2022 11:33 AM [facility] RDW-CV 14.2 11.2 - 14.8 % 01/14/2022 11:33 AM [facility] Platelet Count 148(L) 150 - 400 10? 3 /uL 01/14/2022 11:33 AM [facility] MPV 11.7 9.4 - 12.9 fL 01/14/2022 11:33 AM [facility] nRBC Absolute 0.00 0 10? 3 /uL 01/14/2022 11:33 AM [facility] nRBC Auto 0.0 0 /100 WBC 01/14/2022 11:33 AM [facility] Neutrophils % 75.4(H) 35.0 - 70.0 % 01/14/2022 11:33 AM [facility] Lymphocytes % 11.6(L) 20.0 - 43.0 % 01/14/2022 11:33 AM [facility] Monocytes % 10.6 5.0 - 13.0 % 01/14/2022 11:33 AM [facility] Eosinophils % 0.1 0.0 - 6.0 % 01/14/2022 11:33 AM [facility] Basophil % 0.1 0.0 - 2.0 % 01/14/2022 11:33 AM [facility] Neutrophils Absolute 5.61 1.60 - 7.00 10? 3 /uL 01/14/2022 11:33 AM [facility] Lymphocyte Absolute 0.86(L) 1.10 - 3.90 10? 3 /uL 01/14/2022 11:33 AM [facility] Monocytes Absolute 0.79 0.26 - 1.07 10? 3 /uL 01/14/2022 11:33 AM [facility] Eosinophils Absolute 0.01 0.00 - 0.47 10? 3 /uL 01/14/2022 11:33 AM [facility] Basophils Absolute 0.01 0.00 - 0.08 10? 3 /uL 01/14/2022 11:33 AM [facility] Immature Granulocytes % 2.2(H) 0.0 - 1.0 % 01/14/2022 11:33 AM [facility] Immature Granulocytes Absolute 0.16 01/14/2022 11:33 AM [facility] Blood BLOOD SPECIMEN / Unknown Lab Venipuncture / Unknown 01/14/2022 9:54 AM [facility] 01/14/2022 11:00 AM [facility] Marbin Flores MD LAB - HEMATOLOGY ORD ERABLES Performing Organization Address [facility]/[place] Co de Phone Number [address] [phone] [phone] * (ABNORMAL) COMPREHENSIVE METABOLIC PANEL (01/14/2022 9:54 AM [facility]) Only the most recent of2 resultswithin the time period is included. BUN 27(H) 7 - 26 mg/dL 01/14/2022 11:38 AM [facility] Creatinine 5.60(H) 0.71 - 1.16 mg/dL 01/14/2022 11:38 AM [facility] Sodium 142 136 - 145 mmol/L 01/14/2022 11:38 AM [facility] Potassium 3.6 3.5 - 4.5 mmol/L 01/14/2022 11:38 AM [facility] Chloride 100 98 - 107 mmol/L 01/14/2022 11:38 AM [facility] CO2 24 22 - 29 mmol/L 01/14/2022 11:38 AM [facility] Glucose 217(H) 70 - 115 mg/dL 01/14/2022 11:38 AM [facility] Calcium 8.3(L) 8.4 - 10.2 mg/dL 01/14/2022 11:38 AM [facility] Protein Total 6.8 6.0 - 8.3 g/dL 01/14/2022 11:38 AM [facility] Albumin 3.1(L) 3.4 - 5.0 g/dL 01/14/2022 11:38 AM [facility] Bilirubin Total 0.6 0.2 - 1.2 mg/dL 01/14/2022 11:38 AM [facility] Alkaline Phosphatase 98 40 - 150 U/L 01/14/2022 11:38 AM [facility] ALT 19 5 - 55 U/L 01/14/2022 11:38 AM [facility] AST 17 5 - 34 U/L 01/14/2022 11:38 AM [facility] Anion Gap 22(H) 8 - 18 01/14/2022 11:38 AM [facility] BUN/Creatinine Ratio 5(L) 7 - 23 01/14/2022 11:38 AM [facility] Osmolality Calculated 306(H) 270 - 300 mOsm/kg 01/14/2022 11:38 AM [facility] Albumin/Globulin Ratio 0.8(L) 1.1 - 2.3 01/14/2022 11:38 AM [facility] eGFR by CKD-EPI 11(L) >=90 mL/min/1.7 3 m2 01/14/2022 11:38 AM [facility] Blood BLOOD SPECIMEN / Unknown Lab Venipuncture / Unknown 01/14/2022 9:54 AM [employer] INSTALLER 01/14/2022 11:00 AM [facility] Marbin Flores MD LAB - CHEMISTRY PK ZENG [facility] Organization Address City/State/ZIP Co de Phone Number [address] [address], [facility] [phone] * PROSTATE SPECIFIC ANTIGEN SCREEN (01/14/2022 9:54 AM [facility]) Only the most recent of2 resultswithin the time period is included. PSA Total 3.3 0.0 - 4.0 ng/mL 01/14/2022 11:54 AM RADIO AERIAL INSTALLER [facility] Blood BLOOD SPECIMEN / Unknown Lab Venipuncture / Unknown 01/14/2022 9:54 AM [employer] INSTALLER 01/14/2022 11:00 AM RADIO AERIAL INSTALLER Marbin Flores MD LAB - CHEMISTRY PK ZENG Performing Organization Address City/[facility]/ZIP Co de Phone Number [address] [address], [place] [phone] * (ABNORMAL) PHOSPHORUS BLOOD (01/14/2022 9:54 AM RADIO AERIAL INSTALLER) Only the most recent of2 resultswithin the time period is included. Phosphorus 5.4(H) 2.8 - 5.1 mg/dL 01/14/2022 11:38 AM RADIO AERIAL INSTALLER [facility] Blood BLOOD SPECIMEN / Unknown Lab Venipuncture / Unknown 01/14/2022 9:54 AM [employer] INSTALLER 01/14/2022 11:00 AM RADIO AERIAL INSTALLER Marbin Flores MD LAB - CHEMISTRY PK ZENG Performing Organization Address City/[facility]/ZIP Co de Phone Number [address] [address], [place] [phone] * IRON BLOOD (01/14/2022 9:54 AM RADIO AERIAL INSTALLER) Only the most recent of2 resultswithin the time period is included. Iron 62 50 - 175 ug/dL 01/14/2022 11:36 AM RADIO AERIAL INSTALLER [facility] Blood BLOOD SPECIMEN / Unknown Lab Venipuncture / Unknown 01/14/2022 9:54 AM [employer]IO AERIAL INSTALLER 01/14/2022 10:48 AM [employer]IO AERIAL INSTALLER Marbin Flores MD LAB - CHEMISTRY PK ZENG [address] [address], [place] [phone] * LDL CHOLESTEROL DIRECT (01/14/2022 9:54 AM RADIO AERIAL INSTALLER) Only the most recent of3 resultswithin the time period is included. LDL Direct 46 <100 mg/dL 01/14/2022 11:57 AM [facility] Comment: ATP III Classification of LDL Cholesterol: ?<100 mg/dL: ??Optimal ? 100 - 129 mg/dL: ??Near Optimal/Above Optimal ? 130 - 159 mg/dL: ??Borderline High ? 160 - 189 mg/dL: ??High ?>190 mg/dL: ??Very High Blood BLOOD SPECIMEN / Unknown Lab Venipuncture / Unknown 01/14/2022 9:54 AM RADIO AERIAL INSTALLER 01/14/2022 11:00 AM [facility] Marbin Flores MD LAB - CHEMISTRY PK ZENG [address] [address], [facility] [phone] * HEPATITIS B SURFACE ANTIBODY (01/14/2022 9:54 AM [facility]) Only the most recent of2 resultswithin the time period is included. [facility] Hepatitis B Virus Surface Antibody Non-react sylvie Non-react sylvie 01/14/2022 11:52 AM [facility] Comment: < 8 mIU/mL Hepatitis B surface Antibody (HBsAb). Nonreactive for HBsAb - individual is considered not immune to Hepatitis B Virus infection. Hepatitis B Surface Antibody Quantitative 1.2 <8.0 mIU/mL 01/14/2022 11:52 AM [facility] Comment: Hepatitis B Surface Antibody Numeric Result Interpretation: ? Nonreactive: ?<8.0 mIU/mL ? Indeterminate: ??8.0 - 12.0 mIU/mL ? Reactive: ?>12.0 mIU/mL ? Blood BLOOD SPECIMEN / Unknown Lab Venipuncture / Unknown 01/14/2022 9:54 AM [employer]IO AERIAL INSTALLER 01/14/2022 10:48 AM [employer]IO AERIAL INSTALLER Marbin Flores MD LAB - CHEMISTRY PK ZENG Performing Organization Address City/[facility]/ZIP Co de Phone Number [facility] [address] [place] [address], [place] [phone] * HEPATITIS B CORE ANTIBODY (01/14/2022 9:54 AM [employer]IO AERIAL INSTALLER) Only the most recent of2 resultswithin the time period is included. [facility] HBc Antibody Total Non-reacti ve Non-reacti ve 01/14/2022 11:52 AM RADIO AERIAL INSTALLER [facility] Blood BLOOD SPECIMEN / Unknown Lab Venipuncture / Unknown 01/14/2022 9:54 AM [employer]IO AERIAL INSTALLER 01/14/2022 10:48 AM [employer] AERIAL INSTALLER Marbin Flores MD LAB - CHEMISTRY PK ZENG Performing Organization Address City/[facility]/ZIP Co de Phone Number [facility] [address] [place] [address], [place] [phone] * HEPATITIS B SURFACE ANTIGEN W RFLX CONFIRMATION (01/14/2022 9:54 AM [employer]IO AERIAL INSTALLER) Only the most recent of2 resultswithin the time period is included. [facility] Hepatitis B Virus Surface Antigen Non-reacti ve Non-reacti ve 01/14/2022 11:52 AM RADIO AERIAL INSTALLER [facility] Blood BLOOD SPECIMEN / Unknown Lab Venipuncture / Unknown 01/14/2022 9:54 AM RADIO AERIAL INSTALLER 01/14/2022 10:48 AM RADIO AERIAL INSTALLER Marbin Flores MD LAB - CHEMISTRY PK ZENG Performing Organization Address City/[facility]/ZIP Co de Phone Number [facility] [address] [place] [address], [place] [phone] * ALCOHOL ETHYL BLOOD (01/14/2022 9:54 AM RADIO AERIAL INSTALLER) Only the most recent of2 resultswithin the time period is included. [facility] Ethanol (mg/dL) <10 <=10 mg/dL 11:38 AM [facility] Ethanol Calculated (g/dL) <0.010 <0.010 g/dL 01/14/2022 11:38 AM [facility] Blood BLOOD SPECIMEN / Unknown Lab Venipuncture / Unknown 01/14/2022 9:54 AM RADIO AERIAL INSTALLER 01/14/2022 11:00 AM RADIO AERIAL INSTALLER Narrative [facility] - 01/14/2022 11:38 AM RADIO AERIAL INSTALLER Ethanol Interp <10: None Detected. Depression of CLOTH CUTTING MACHINE OPERATOR: >100 mg/dl Potentially Critical: >250 mg/dl Potentially Fatal >400 mg/dl Ethanol in the patient's blood will contribute to the osmolar gap. Ethanol's contribution to the osmolar gap can be estimated by dividing the concentration of ethanol in mg/dL by 4.6. This test is for clinical use only and does not equal a ANGELLA for legal purposes. Marbin Flores MD LAB - CHEMISTRY PK ZENG Performing Organization Address City/[facility]/ZIP Co de Phone Number [address] [address], [facility] [phone] * HEPATITIS C ANTIBODY (01/14/2022 9:54 AM RADIO AERIAL INSTALLER) Only the most recent of2 resultswithin the time period is included. [facility] Hepatitis C Antibody Non-react sylvie Non-reac tive 01/14/2022 11:52 AM [facility] Comment:Hepatitis C Antibody screen indicates no serologic evidence of past or current infection with Hepatitis C Virus. Patients with unexplained liver disease who are immunocompromised or suspected of having acute Hepatitis C infection may benefit from Nucleic Acid Test (MARLON) for Hepatitis C Viral RNA to confirm Hepatitis C status. Blood BLOOD SPECIMEN / Unknown Lab Venipuncture / Unknown 01/14/2022 9:54 AM RADIO AERIAL INSTALLER 01/14/2022 10:48 AM RADIO AERIAL INSTALLER Marbin Flores MD LAB - CHEMISTRY PK ZENG [address] [address], [facility] [phone] * HEPATITIS A ANTIBODY (01/14/2022 9:54 AM RADIO AERIAL INSTALLER) Only the most recent of2 resultswithin the time period is included. [facility] Hepatitis A Virus Antibody Total Negative Negative 01/15/2022 1:38 PM RADIO AERIAL INSTALLER [facility] ([facility]) Comment: Performed by [employer], [address] [place] [address] [email or web address] [email or web address] MD, PHD, Lab. Director Blood BLOOD SPECIMEN / Unknown Lab Venipuncture / Unknown 01/14/2022 9:54 AM RADIO AERIAL INSTALLER 01/14/2022 10:48 AM RADIO AERIAL INSTALLER Marbin Flores MD LAB - CHEMISTRY PK ZENG Performing Organization Address City/[facility]/ZIP Co de Phone Number [facility] [employer] [facility]) [address] * (ABNORMAL) FERRITIN (01/14/2022 9:54 AM RADIO AERIAL INSTALLER) Only the most recent of2 resultswithin the time period is included. [facility] Ferritin 847(H) 22 - 275 ng/mL 01/14/2022 11:52 AM RADIO AERIAL INSTALLER [facility] Blood BLOOD SPECIMEN / Unknown Lab Venipuncture / Unknown 01/14/2022 9:54 AM RADIO AERIAL INSTALLER 01/14/2022 10:48 AM RADIO AERIAL INSTALLER Marbin Flores MD LAB - CHEMISTRY PK ZENG [facility] [address] [place] [address], [facility] [phone] * (ABNORMAL) LIPID PROFILE (01/14/2022 9:54 AM RADIO AERIAL INSTALLER) Only the most recent of3 resultswithin the time period is included. [facility] Cholesterol Total 173 <200 mg/dL 01/14/2022 11:38 AM RADIO AERIAL INSTALLER [facility] HDL 21(L) >40 mg/dL 01/14/2022 11:38 AM [facility] Comment: ATP III Classification of HDL Cholesterol: ? <40 mg/dL: ??Considered a major risk factor. ? >60 mg/dL: ??Considered a negative risk factor. ? LDL Calculated 01/14/2022 11:38 AM [facility] Comment:Calculation of LDL v alue was not performed because triglyceride concentrations greater than 400 mg/dL render the calculated value invalid. For this reason, the LDL Direct assay for measurement of LDL Cholesterol has been performed (per laboratory protocol). Triglycerides 706(H) <150 mg/dL 01/14/2022 11:38 AM [facility] Comment: ATP III Classification of Triglycerides: ?<150 mg/dL: ??Normal ? 150 - 199 mg/dL: ??Borderline High ? 200 - 400 mg/dL: ??High ?>500 mg/dL: ??Very High Blood BLOOD SPECIMEN / Unknown Lab Venipuncture / Unknown 01/14/2022 9:54 AM RADIO AERIAL INSTALLER 01/14/2022 11:00 AM RADIO AERIAL INSTALLER Marbin Flores MD [facility] Organization Address City/State/[place] Co de Phone Number [facility] [address] [place] [address], [facility] [phone] * ECHO COMPLETE (11/07/2021 11:30 AM CDT) Anatomical Region Laterality Modality Chest Echo 11/07/2021 10:5 3 AM CDT Narrative Procedure Note Eliza Phan MD - 11/07/2021 Solange Guido MD ECHOCARDIOGRAPHY RAD IANT * IR CENTRAL LINE REMOVAL (06/22/2021 7:45 AM CDT) Only the most recent of2 resultswithin the time period is included. Anatomical Region Laterality Modality X-Ray Angiograph y Narrative 06/21/2021 11:06 AM CDT Santiago Sellers MD ? 06/21/2021 11:06 AM VASCULAR AND INTERVENTIONAL RADIOLOGY EXAMINATION: TUNNELED CENTRAL VENOUS CATHETER REMOVAL Date: 06/21/2021 History: Kendall Carl is a 66 year old male with history of hypertension, diabetes, and end-stage renal disease who is now successfully dialyzing through a peritoneal dialysis catheter. ?? Removal of the patient's tunneled hemodialysis catheter is requested. Diagnosis code: N18.6 Technique: The risks, benefits, and alternatives were discussed and informed consent was obtained. ??Prior to beginning the procedure, universal protocol was performed to confirm the patient's identity and the planned procedure. ??Maximum sterile barriers including cap, mask, hand hygiene, sterile gloves, sterile gown, large sterile drape, and 2% chlorhexidine for cutaneous antisepsis were used. The skin adjacent to the right thoracic tunneled catheter entry site was sterilely prepped, draped, and infiltrated with 1% lidocaine. ??Blunt dissection was then used to free the tunneled hemodialysis catheter cuff. ??The catheter was removed in its entirety and pressure held at the site to obtain hemostasis. ??A sterile dressing was applied. ??The patient tolerated the procedure well and without complications. Findings: The catheter exit site showed no evidence of infection. IMPRESSION: Successful tunneled hemodialysis catheter removal, as described above. Alexey Sellers M.D. Vascular and Interventional Radiology [facility] [phone] CC: Patient's pie bottomer: Dr. Alan Mccall Dialysis unit: [facility] Alan Mccall MD IR ORDERABLES * IR CENTRAL LINE INSERT TUNNEL (04/04/2021 10:31 AM RADIO AERIAL INSTALLER) Only the most recent of2 resultswithin the time period is included. Anatomical Region Laterality Modality Chest, Upper Extremity X-Ray Ang iography Narrative 04/04/2021 10:20 AM RADIO AERIAL INSTALLER Santiago Sellers MD ? 04/04/2021 10:21 AM VASCULAR AND INTERVENTIONAL RADIOLOGY EXAMINATION: TUNNELED CENTRAL VENOUS CATHETER PLACEMENT Date: 04/04/2021 History: Kendall Carl is a 66 year old male with history of hypertension, diabetes, CHF, and end-stage renal disease who is transitioning from peritoneal dialysis to hemodialysis. ??Tunneled hemodialysis catheter placement is requested per Dr. Mccall. Diagnosis code: N18.6 Fluoroscopy time: ??0.2 minutes. Absorbed patient dose: ??6.07 mGy. Technique: The risks, benefits, and alternatives were discussed and informed consent was obtained. ??Prior to beginning the procedure, universal protocol was performed to confirm the patient's identity and the planned procedure. ??Maximum sterile barriers including cap, mask, hand hygiene, sterile gloves, sterile gown, large sterile drape, sterile gel, sterile ultrasound probe cover, and 2% chlorhexidine for cutaneous antisepsis were used. Conscious sedation was administered using 1 mg of Versed and 50 mcg of Fentanyl at a sedation start time of 9:54 a.m. and end time of 10:05 a.m.. ??The patient was monitored throughout the entirety of the procedure by the interventional nurse in addition to the physician performing the procedure. Prior to the procedure, the right internal jugular vein was evaluated by ultrasound and an image of the patent vessel was recorded in the patient's electronic medical record. ??The skin over this vein was sterilely prepped, draped, and infiltrated with 1% lidocaine. ??This vein was then accessed with a micropuncture needle set using real-time ultrasound guidance. ??A guidewire was passed centrally using fluoroscopic guidance. ??The intravascular length from the access site to the right atrium was assessed. After infiltrating the skin in the subclavicular region with 1% lidocaine, a short transverse incision was made and the 23 cm tip-to-cuff Glidepath catheter was tunneled to the internal jugular vein access site and inserted through a peel-away sheath. The peel-away sheath was then removed. Catheter evaluation demonstrated excellent bidirectional flow. ??The catheter was flushed with heparin and sutured in place using 2-0 Prolene. ??The incision in the lower neck was closed using Exofin skin glue. ?? Sterile dressings were applied. Findings: The final fluoroscopic image demonstrates the catheter with its tip in the right atrium. ??No complications were identified. IMPRESSION: Successful tunneled catheter placement, as described above. PLAN: The catheter is ready for immediate use. ??When treatment is completed, removal can be scheduled by calling [facility] at [phone]. Alexey Sellers M.D. Vascular and Interventional Radiology [facility] [phone] CC: Patient's pie bottomer: Dr. Alan Mccall Dialysis unit: [facility] Alan Mccall MD IR ORDERABLES * (ABNORMAL) RENAL FUNCTION PANEL (09/07/2020 12:00 PM CDT) Glucose 168(H) 70 - 105 mg/dL 09/07/2020 1:34 PM CDT [facility] Sodium 139 136 - 145 mmol/L 09/07/2020 1:34 PM CDT [facility] Potassium 3.5 3.5 - 5.1 mmol/L 09/07/2020 1:34 PM CDT [facility] Chloride 98 98 - 107 mmol/L 09/07/2020 1:34 PM CDT [facility] CO2 27 23 - 31 mmol/L 09/07/2020 1:34 PM CDT [facility] Calcium 8.1(L) 8.4 - 10.4 mg/dL 09/07/2020 1:34 PM CDT [facility] Anion Gap 14 8 - 18 mmol/L 09/07/2020 1:34 PM CDT [facility] BUN 32(H) 8.4 - 25.7 mg/dL 09/07/2020 1:34 PM CDT [facility] Creatinine 5.32(H) 0.72 - 1.25 mg/dL 09/07/2020 1:34 PM CDT [facility] Albumin 2.8(L) 3.2 - 4.6 gm/dL 09/07/2020 1:34 PM CDT [facility] Phosphorus 4.0 2.3 - 4.7 mg/dL 09/07/2020 1:34 PM CDT [facility] eGFR by MDRD 11(L) >60 mL/min/1.7 3m2 09/07/2020 1:34 PM CDT [facility] eGFR by MDRD 13(L) >60 mL/min/1.7 3m2 09/07/2020 1:34 PM CDT [facility] Blood BLOOD SPECIMEN / Unknown Lab Venipuncture / Unknown 09/07/2020 12:00 PM CDT 09/07/2020 1:05 PM CDT Alan Mccall MD LAB - CHEMISTRY PK ZENG [facility] [address] [place] [address] * FL PERITONEUM (09/06/2020 10:07 AM CDT) Anatomical Region Laterality Modality Abdomen X-Ray Angiograph y Narrative 09/06/2020 11:46 AM CDT Aki Boles MD ? 09/06/2020 ??2:51 PM Kendall P Meseret [phone] Interventional Nephrology Procedure Date: ??09/06/2020 Attending Surgeon and performing the procedure: ??Aki Boles MD Medical indication for the procedure: The patient is a 65-year-old man with end-stage renal disease receiving peritoneal dialysis as his form of renal replacement therapy. ??Patient has been referred due to malfunction of the catheter. ??There was an episode of condom in a de la paz for which is not receiving vancomycin prophylactically. ??However, the patient has experienced malfunction of the catheter manifested as a what appears to be ultrafiltration failure. ??The patient has a fill volume of 2500 mL and he appears to be retaining fluid. ?? He has experienced pain in the right upper quadrant of the abdomen. ??Currently he does not have any abdominal pain. ?? Review of systems: ??He has had very poor appetite over the last few days. ??End he is complaining of loose watery stools. ?? EXAM: ?? There were no vitals taken for this visit. General appearance: alert, cooperative, no distress Heart: Regular rate, normal S1 and S2, without murmurs Lungs: breath sounds normal and symmetric; no wheezes Abdomen: ??Soft benign bowel sounds are present. ??There is no tenderness to palpation. ??The exit site is without drainage. Extremities: no cyanosis or edema. ?? Indications for the procedure: ?? 1. ? Mechanical malfunction of a peritoneal dialysis catheter. 2. ? End-stage renal disease on dialysis. Procedures Performed: 1. ??PERITONEAL DIALYSIS CATHETER PLACEMENT: ??INJECTION OF AIR/CONTRAST OF PERITONEAL CAVITY; [id number]; [id number] Findings: 1. ??Contrast injection through the catheter showed that the catheter curled tip has migrated from the floor of the pelvis to the left upper quadrant above the iliac crest. ??Contrast injection is observed forming a thin layer around the catheter to then dissipate into the rest of the Brick hernia cavity consistent with omental wrapping. ??Stool is observed in the transverse colon 2. An attempt to anti angled catheter from the omentum with a stiff Glidewire failed since the catheter is very heavily wrapped in omentum. Description of the procedure: ?? After informed consent was obtained Kendall Carl was taken to the angiography suite and placed on the fluoroscopy table in the supine position. Prior to beginning the procedure, universal protocol was performed to confirm the patient's identity and the planned procedure. ??Maximum sterile barriers including cap, mask, hand hygiene, sterile gloves, sterile gown, large sterile drape, sterile gel, sterile ultrasound probe cover, and 2% chlorhexidine for cutaneous antisepsis were used. The abdomen and catheter were prepared with chlorhexidine and draped in the appropriate sterile fashion. ??The transfer set was removed. ??There was no drainage from the catheter. ??At this time contrast injection into the peritoneal cavity showed: 1. ??Contrast injection through the catheter showed that the catheter curled tip has migrated from the floor of the pelvis to the left upper quadrant above the iliac crest. ??Contrast injection is observed forming a thin layer around the catheter to then dissipate into the rest of the Brick hernia cavity consistent with omental wrapping. Attempt to reposition the catheter using stiff Glidewire failed since the catheter is heavily wrapped in omentum as confirmed by the contrast injection into the peritoneum. 2. An attempt to anti angled catheter from the omentum with a stiff Glidewire failed since the catheter is very heavily wrapped in omentum. The following parameters were monitored: ??Oxygen saturation, heart rate, blood pressure, End Tidal CO2, and response to care. The patient tolerated the procedure well. IP Contrast: ??10 mm of Isovue 300. Fluoroscopy time: 1.3 min. Absorbed patient dose: 80.67 ??mGy. COMPLICATIONS: No. IMPRESSION: A peritoneal dialysis catheter that has migrated to the left upper quadrant and is heavily wrapped in omentum. RECOMMENDATIONS: 1. Will attempt in the using peristalsis to attempt reposition of the catheter. ??Will given an additional 24 hr. ??If the catheter is no reposition the patient is not able to successfully dialyze he has been scheduled to have a right internal jugular vein tunneled catheter dialysis placed tomorrow morning for the initiation of renal replacement therapy until the catheter can be reposition laparoscopically. 2. The patient will need the catheter reposition laparoscopic. Aki Boles MD 09/06/2020 11:46 AM [facility] VAC [phone] Christiano Perea MD [facility] Alan Mccall MD FLUOROSCOPY ORDERABL ES * CARDIAC PROCEDURE ORDER (08/07/2020 3:59 PM CDT) Narrative 08/07/2020 3:59 PM CDT Ordered by an unspecified provider. Scanned Document CARDIAC SERVICES ORD ERABLES * CCL CARDIAC CATH LEFT (08/04/2020 11:57 AM CDT) Anatomical Region Laterality Modality Chest X-Ray Angiograph y Narrative 08/16/2020 2:51 PM CDT [facility] Cardiac Catheterization Procedure Note Patient: Kendall Carl Age: [age] year old Date of : 1955 Procedure Date: 08/04/2020 FELLOW / WEIGHER AND CRUSHER: Jade Russo MD ATTENDING PHYSICIAN: ??Javier Lan MD DIAGNOSTIC APPROPRIATENESS CRITERIA: ??Pre-kidney transplant evaluation HISTORY: 65??year old??male??with past medical history of renal cell carcinoma (s/p partial nephrectomy), chronic kidney disease stage 4/5 (recently started on peritoneal dialysis), hypertension, coronary artery disease (with known 40% stenosis on mid LAD), diabetes, hypothyroidism ?? Here for LHV/Coronary angiography with possible FFR LAD for pre kidney transplant eval ?? ACCESS SITE(S): ?? right radial artery , right subclavian artery was very tortuous with difficulty in engaging PROCEDURAL OVERVIEW: After obtaining informed consent and positioning the patient on the catheterization table, a timeout was performed to confirm the patient? s name, date of , and procedure. ??Sedation was initiated and the patient was prepped and draped using standard sterile technique. ?? Lidocaine was used for local anesthesia over the access site, after which the vessel was accessed and a sheath was placed using the modified Seldinger technique. ??Access was uncomplicated. Intra-arterial verapamil and intravenous heparin were administered to minimize risk of radial artery spasm or occlusion. Coronary angiography was performed using JR4 6F , XB LAD 3.0 ??6F ??catheter(s). ??Left heart catheterization was performed using JR4 6 F ??catheter. At the conclusion of the procedure, hemostasis was achieved using a radial compression device after removal of all catheters, wires, and sheaths. ?? SEDATION: Moderate sedation on this adult patient was ordered by Dr. Lan , administered intravenously in their presence, and monitored by the procedure nurse as an independent trained observer who was present throughout the procedure. The following parameters were monitored: oxygen saturation, heart rate, blood pressure, and response to care. Intra-service sedation start time was 10:41 ??and end time was 11:41 ?? during which the attending was present. Total physician intra-service sedation time was 60 ??minutes. For details on pre-moderate sedation and post-moderate sedation patient evaluation, please review the evaluation forms in [facility]. For details on monitored clinical parameters during the intra-service sedation time, please review the procedure nurse documentation in [facility] and [facility]. Total sedation administered as follows: ?? 50 ??mcg IV fentanyl, 1 ??mg IV midazolam. ?? 3 ??ml of 1% lidocaine was administered subcutaneously at the access site. TOTAL CONTRAST USED (Isovue 370): 190 ??ml RADIATION: ?? AK: 1189 mGy ?? DAP: 136 ??Gy.cm2 COMPLICATIONS: none HEMODYNAMIC FINDINGS: ??LVEDP 18 mmmHg ANGIOGRAPHY: ?i. ?Left main: ??Short artery has no significant disease gives off LAD L ??ii. ?? LAD: ??Intermediate size artery has long 70 % ??lesion in mid segment , mild diffuse disease in distal lesion and wraps around apex, givees off three small to 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 size diags that have no significant disease ?iii. ?? LCx: non dominant artery gives off small OM1 , large OM2 and continues in AV groove. Artery and branches with minimal luminal irregularities ??iv. ?? RCA: dominant ??large caliber artery has no significant disease gives off PDA and RPL . ?? IFR OF THE mid LAD ??LESION: A XB 3.0 6F ??guide catheter was used for support. Heparin was given to achieve therapeutic ACT. A Pressure ??wire was advanced into the distal vessel. IFR measured at ??0.73 Pressure wire was removed and final angiography showed no evidence of dissection or perforation. DOMINANCE: Right DIAGNOSTIC INTERPRETATIONS: Severe one vessel coronary artery disease in mid LAD with IFR 0.73 RECOMMENDATIONS AFTER DIAGNOSTIC CATHETERIZATION: ?? PCI of the mid LAD . APPROPRIATENESS CRITERIA FOR PCI: pre kidney transplant evaluation PCI INDICATION: cardiomyopathy and pre kidney transplant evaluation Revascularization Before Non-cardiac Surgery-Class: IIa PCI STATUS: elective PCI PROCEDURAL MODIFIERS: none LESION UNDERGOING INTERVENTION : PCI TO THE mid LAD . 1. LESION MODIFIERS: none 2. RESTENOSIS?:no 3. ACCESS: The existing sheath was used for the PCI procedure. 4. GUIDE: ??XB LAD 3.0 6F guide catheter was used for intervention. 5. ORAL ANTIPLATELET THERAPY: Aspirin and clopidogrel 6. INTRAVENOUS ANTICOAGULATION DURING PCI: Heparin 7. INTERVENTIONAL WIRE: A Aeris wireless pressure ??wire was advanced beyond the lesion into the distal ??Vessel using a GuideThe Huntlla II guide extension catheter 8. PROCEDURE DETAILS:Balloon angioplasty was performed using a Trek 2.5 X 12 ??balloon. After angioplasty, a Xience drug-eluting 3.0 X 16 and Xience drug-eluting 3.0 X 8 ??stents were deployed across the lesion. Postdilation of the stent with ??NC Trek 3 X 12 ?? 9. After intervention, the 70 % stenosis was reduced to 0 % with TELMA-1 ?? flow prior to PCI and TELMA-3 flow after PCI. COMPLICATIONS: none HEMOSTASIS: At the conclusion of the procedure, hemostasis was achieved using a radial compression device after removal of all catheters, wires, and sheaths. INTERVENTIONAL CONCLUSIONS: Successful PCI to mid LAD with Xience drug-eluting 3.0 X 16 ?? and Xience drug-eluting 3.0 X 8 ??stents RECOMMENDATIONS AFTER INTERVENTIONAL PROCEDURE: Aspirin 81 mg QDAY indefinitely. Clopidogrel 75 mg QDAY ??for 3-6 ??months. Aggressive modification of atherosclerotic risk factors. Jade Zuleta MD 08/04/2020 I was present for the entirety of the described procedure. Javier Lan MD Eliza Phan MD CARDIAC MAINTENANCE TECHNICIAN 2ND SHIFT RA DIANT * (ABNORMAL) GLUCOSE - POINT OF CARE (08/04/2020 9:23 AM CDT) Only the most recent of4 resultswithin the time period is included. [facility] Signature Glucose WB/POC 403(H) 70 - 115 mg/dL 08/04/2020 9:27 AM CDT [facility] Specimen Type Venous 08/04/2020 9:27 AM CDT [facility] Blood BLOOD SPECIMEN / Unknown 08/04/2020 9:23 AM CDT 08/04/2020 9:27 AM CDT Eliza Phan MD LAB - POINT OF CARE ORDERABLES Performing Organization Address City/State/[place] Co de Phone Number [facility] [address] [place] [id number], [facility] [phone] * XR CHEST 1VW (08/02/2020 2:31 PM CDT) Anatomical Region Laterality Modality Chest Radiographic Pastora ging 08/02/2020 2:22 PM CDT Impressions 08/02/2020 2:32 PM CDT FINDINGS/IMPRESSION: There is no focal consolidation, pleural effusion, or pneumothorax. The cardiomediastinal silhouette is normal. Report drafted by Harsh Mohamud M.D. (resident) Dr. LUIS Leigh have personally reviewed and interpreted this examination/study. This report was electronically signed by LUIS JAMES ??on 08/02/2020 2:32 PM . Narrative 08/02/2020 2:32 PM CDT EXAMINATION: XR CHEST 1VW HISTORY: N28.89: Kidney mass COMPARISON: Chest x-ray dated 11/09/2019 Procedure Note Luis James DO - 08/02/2020 EXAMINATION: XR CHEST 1VW HISTORY: N28.89: Kidney mass COMPARISON: Chest x-ray dated 11/09/2019 FINDINGS/IMPRESSION: There is no focal consolidation, pleural effusion, or pneumothorax. The cardiomediastinal silhouette is normal. Report drafted by Harsh Mohamud M.D. (resident) Dr. LUIS Leigh have personally reviewed and interpreted this examination/study. This report was electronically signed by LUIS JAMES on 08/02/2020 2:32 PM . Thomas Mendoza MD DIAGNOSTIC IMAGING ORDERABLES * CT KIDNEY BIOPSY( [id number] and [id number]) (08/02/2020 1:16 PM CDT) Anatomical Region Laterality Modality Abdomen Computed Tomogra phy 08/02/2020 1:18 PM CDT Impressions 08/02/2020 3:48 PM CDT Impression: CT-guided core biopsy of left renal mass, as described above. The pathology report is pending at the time of this dictation. Dr. Antony performed/was present throughout the procedure and provided the moderate sedation service. Please see the nursing sedation flowsheet. I, Dr. ELIAS ANTONY have personally reviewed and interpreted this examination/study. This report was electronically signed by ELIAS ANTONY ??on 08/02/2020 3:48 PM . Narrative 08/02/2020 3:48 PM CDT History: 65 yo M with hx of RCC of right kidney s/p partial nephrectomy now presenting with left renal mass Operators: 1.Dr. Antnoy, Attending Physician 2.Dr. Christian, Resident Physician Anesthesia: 1.Local anesthesia - 10 mL of 1% lidocaine 2.Intravenous conscious sedation - Versed 1 mg and Fentanyl 50 mcg Procedure: 1.Limited non-contrast CT of the abdomen. 2.CT-guided core biopsy of left renal mass. 3.Post-biopsy limited non-contrast CT of the chest and abdomen. Start time: 1215 ?End time: 1308 ? Sedation initiated time: 1216 Procedure in detail: The procedure, risks, and possible complications were explained to the patient in detail, and informed consent was obtained. The patient was placed in a prone position on the CT table and a radio-opaque grid was placed over the region of interest. Limited non-contrast CT of the upper abdomen showed left renal mass with multiple adjacent cysts. A percutaneous entry site was marked on the skin to access the left renal mass. The patient received intravenous Versed and Fentanyl for conscious sedation. A qualified radiology nurse monitored the patients vital signs throughout the procedure. The marked site and skin around the region was prepped and draped in sterile fashion. Local anesthesia was provided with 1% Lidocaine. A 17-gauge co-axial needle system was advanced in stages under CT guidance. With the needle tip at the edge of the lesion, 4 core samples were acquired with an 18-gauge biopsy gun. The samples were sent to the pathology service. Post-procedure limited non-contrast CT did not show any immediate complications such as major hemorrhage. The patient tolerated the procedure well and was transferred to the holding area in stable condition. Procedure Note Elias Antony MD - 08/02/2020 History: 65 yo M with hx of RCC of right kidney s/p partial nephrectomy now presenting with left renal mass Operators: 1.Dr. Antony, Attending Physician 2.Dr. Christian, Resident Physician Anesthesia: 1.Local anesthesia - 10 mL of 1% lidocaine 2.Intravenous conscious sedation - Versed 1 mg and Fentanyl 50 mcg Procedure: 1.Limited non-contrast CT of the abdomen. 2.CT-guided core biopsy of left renal mass. 3.Post-biopsy limited non-contrast CT of the chest and abdomen. Start time: 1215 End time: 1308 Sedation initiated time: 1216 Procedure in detail: The procedure, risks, and possible complications were explained to the patient in detail, and informed consent was obtained. The patient was placed in a prone position on the CT table and a radio-opaque grid was placed over the region of interest. Limited non-contrast CT of the upper abdomen showed left renal mass with multiple adjacent cysts. A percutaneous entry site was marked on the skin to access the left renal mass. The patient received intravenous Versed and Fentanyl for conscious sedation. A qualified radiology nurse monitored the patients vital signs throughout the procedure. The marked site and skin around the region was prepped and draped in sterile fashion. Local anesthesia was provided with 1% Lidocaine. A 17-gauge co-axial needle system was advanced in stages under CTguidance. With the needle tip at the edge of the lesion, 4 core samples were acquired with an 18-gauge biopsy gun. The samples were sent to the pathology service. Post-procedure limited non-contrast CT did not show any immediate complications such as major hemorrhage. The patient tolerated the procedure well and was transferred to the holding area in stable condition. Impression: CT-guided core biopsy of left renal mass, as describedabove. The pathology report is pending at the time of this dictation. Dr. Antony performed/was present throughout the procedure andprovided the moderate sedation service. Please see the nursing sedationflowsheet. I, Dr. ELIAS ANTONY have personally reviewed and interpreted this examination/study. This report was electronically signed by ELIAS ANTONY on 08/02/2020 3:48 PM . Thomas Mendoza MD CT ORDERABLES * PATHOLOGY TISSUE (08/02/2020 12:20 PM CDT) Case Report Surgical Pathology Report ? Case: [id number] ? Authorizing Provider: ??Thomas Mendoza MD ?Collected: ? 08/02/2020 12:20 PM ? Ordering Location: ? [facility] IVR ?Received: ?08/02/2020 01:42 PM ? Pathologist: ? Elinor Phillips MD ? Specimen: ?Kidney Mass, Biopsy ? 08/04/2020 3:00 PM [facility] Final Diagnosis Kidney, left, biopsy (A): - Oncocytic neoplasm, see comment 08/04/2020 3:00 PM [facility] Microscopic Description and Comment Immunostains show tumor cells are positive for CD117 and rare tumor cells are positive for CK7 and BerEP4. If this biopsy is petroleum products sales representative of the entire lesion, it would be consistent with an oncocytoma. 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 Received in formalin, specimen A , are 4 purple-ho soft tissue cores 0.5-1.4 cm in length with diameters of 0.1 cm and a 0.9 x 0.1 x 0.1 cm portion of red-brown blood clot, submitted in toto in cassette A1. 08/04/2020 3:00 PM [facility] Disclaimer The performance characteristics of all immunohistochemical and indirect immunofluorescence stains (if any) cited in this report were determined by the Histopathology Laboratory of [facility]. Some of these tests were developed by our own laboratory and have not been cleared or approved by the US Food and Drug Administration. The FDA does not require this test to go through premarket FDA review. These tests are used for clinical purposes. They should not be regarded as investigational or for research. This laboratory is certified under the Clinical Laboratory Improvement Amendments (CLIA) as qualified to perform high complexity clinical laboratory testing. This case has been personally reviewed and interpreted by the attending (teaching) pathologist. 08/04/2020 3:00 PM CDT [facility] Embedded Images 08/04/2020 3:00 PM CDT [facility] Pathology/Cytolo gy MASS / Unknown Collection / Unknown 08/02/2020 12:20 PM CDT 08/02/2020 1:42 PM CDT Thomas Mendoza MD LAB - PATHOLOGY/CY SPENCEROGKp ORDERABLES Performing Organization Address [facility]/[place] Co de Phone Number [facility] [employer] [address] [phone] * PT-INR (07/28/2020 8:14 AM CDT) PT 12.8 12.1 - 14.8 sec 07/28/2020 8:41 AM CDT [facility] INR 1.0 0.9 - 1.1 07/28/2020 8:41 AM CDT [facility] Blood BLOOD SPECIMEN / Unknown Lab Venipuncture / Unknown 07/28/2020 8:14 AM CDT 07/28/2020 8:14 AM CDT Narrative [facility] - 07/28/2020 8:41 AM CDT Conventional Warfarin Anticoagulant Therapy: INR Reference Range: ??2.0-3.0 Intensive Warfarin Anticoagulant Therapy: INR Reference Range: ? 2.5-3.5 Eliza Phan MD LAB - COAGULATION O RDERABLES Performing Organization Address City/[facility]/ZIP Co de Phone Number [facility] [address] [place] [address] * (ABNORMAL) BASIC METABOLIC PANEL (CALCIUM TOTAL) (07/28/2020 8:14 AM CDT) [facility] Glucose 290(H) 70 - 105 mg/dL 07/28/2020 9:06 AM CDT [facility] Sodium 137 136 - 145 mmol/L 07/28/2020 9:06 AM CDT [facility] Potassium 4.2 3.5 - 5.1 mmol/L 07/28/2020 9:06 AM CDT [facility] Chloride 101 98 - 107 mmol/L 07/28/2020 9:06 AM CDT [facility] CO2 25 23 - 31 mmol/L 07/28/2020 9:06 AM CDT [facility] Calcium 8.8 8.4 - 10.4 mg/dL 07/28/2020 9:06 AM CDT [facility] Anion Gap 11 8 - 18 mmol/L 07/28/2020 9:06 AM CDT [facility] BUN 38(H) 8.4 - 25.7 mg/dL 07/28/2020 9:06 AM CDT [facility] Creatinine 5.77(H) 0.72 - 1.25 mg/dL 07/28/2020 9:06 AM CDT [facility] eGFR by MDRD 10(L) >60 mL/min/1.7 3m2 07/28/2020 9:06 AM CDT [facility] eGFR by MDRD 12(L) >60 mL/min/1.7 3m2 07/28/2020 9:06 AM CDT [facility] Blood BLOOD SPECIMEN / Unknown Lab Venipuncture / Unknown 07/28/2020 8:14 AM CDT 07/28/2020 8:14 AM CDT Eliza Phan MD LAB - CHEMISTRY ORD ERABLES [facility] [address] [place] [address] * CT KIDNEYS WWO CONTRAST (06/15/2020 9:52 AM CDT) Anatomical Region Laterality Modality Abdomen Computed Tomogra phy 06/15/2020 9:57 AM CDT Impressions 06/15/2020 1:16 PM CDT Impression: 1.Isoattenuating, mildly enhancing lesion in the superior pole of the left kidney with internal areas of hypoattenuation which may represent necrosis measures 2.4 x 2.1 cm. This lesion is concerning for renal cell carcinoma (Bosniak 4). Urologic consultation recommended. 2.Multiple hypoattenuating cystic lesions throughout the bilateral kidneys with various amounts of attenuation represent simple and proteinaceous/hemorrhagic cysts (Bosniak 1 and 2). The size and configuration cysts are largely unchanged compared to prior examination. 3.Unchanged 7 mm left lower lobe solid nodule. If the patient is at high-risk for pulmonary malignancy a follow-up CT in 18-24 months from 11/09/2019 is recommended to ensure stability. Report dictated by Donny Oneill DO (president financial institution) I, Dr. RODRICK JOSEPH have personally reviewed and interpreted this examination/study. This report was electronically signed by RODRICK JOSEPH ??on 06/15/2020 1:16 PM . Narrative 06/15/2020 1:16 PM CDT Procedure Information DATE: 06/15/2020 9:53 AM EXAMINATION: Computed tomography (CT) of the abdomen without and with contrast TECHNIQUE: CT of the abdomen was performed prior to and after the uneventful administration of 100 mL of Isovue 370 intravenous contrast according to a renal protocol. Multi-planar reconstructions, MIP reformats, and post processed 3-D images were produced. Clinical Information HISTORY: Z01.818: Pre-transplant evaluation for kidney transplant COMPARISON: CT Abdomen Pelvis without Contrast dated 11/09/2019 Findings Lower Chest: 7 mm left lower lobe solid nodule (series 3, image 19), unchanged. Coronary artery calcifications are present. Hepatobiliary: A few benign cysts inferiorly in hepatic segment IVb. Prior cholecystectomy. Pancreas: Normal. Spleen: Hypoattenuating lesion measuring 8 mm in greatest axial dimension (series 4, image 30), likely simple cyst or hemangioma. Right Genitourinary Kidney: no calculi. Linear hyperattenuating material is noted in the superior pole of the right kidney which may represent postsurgical changes. Multiple hypoattenuating cystic lesions are noted throughout the right kidney. Attenuation differences represent a combination of simple renal cysts and proteinaceous/hemorrhagic cysts (Bosniak 1 and 2). Ureter: no calculi. Obstruction/Hydronephrosis: None. Left Genitourinary Kidney: no calculi. Multiple hypoattenuating cystic lesions are noted throughout the left kidney. Attenuation differences represent a combination of simple renal cysts and proteinaceous/hemorrhagic cysts (Bosniak 1 and 2). Exophytic hemorrhagic cyst is noted in the left inferior pole with internal hematocrit level (series 4, image 70). Isoattenuating, mildly enhancing lesion in the superior pole of the left kidney with internal areas of hypoattenuation which may represent necrosis measures 2.4 x 2.1 cm (series 4, image 38; series 9, image 91). Ureter: no calculi. Obstruction/Hydronephrosis: ?? None. Adrenals: Normal. Retroperitoneum: Multiple prominent periaortic lymph nodes, for example a 7 mm periaortic lymph node between the aorta and left kidney (series 4, image 53). No evidence of lymphadenopathy. Peritoneum: The distal end of a peritoneal dialysis catheter coils within the mesentery. Small volume ascites, likely from peritoneal dialysis. Gastrointestinal: The stomach and visualized loops of large and small bowel are unremarkable. Appendix: Not seen. Vasculature: The visualized right common iliac only shows a punctate area of calcified atherosclerosis. The origin of the visualized left common iliac artery shows a small area of calcified atherosclerosis. Otherwise the visualized common iliac arteries are patent without focal stenosis. Bones: The visible osseous structures are intact. Soft tissues: Normal. Procedure Note Rodrick Joseph MD - 06/15/2020 Procedure Information DATE: 06/15/2020 9:53 AM EXAMINATION: Computed tomography (CT) of the abdomen without and with contrast TECHNIQUE: CT of the abdomen was performed prior to and after the uneventful administration of 100 mL of Isovue 370 intravenous contrast according toa renal protocol. Multi-planar reconstructions, MIP reformats, and post processed 3-D images were produced. Clinical Information HISTORY: Z01.818: Pre-transplant evaluation for kidney transplant COMPARISON: CT Abdomen Pelvis without Contrast dated 11/09/2019 Findings Lower Chest: 7 mm left lower lobe solid nodule (series 3, image 19), unchanged. Coronary artery calcifications are present. Hepatobiliary: A few benign cysts inferiorly in hepatic segment IVb. Prior cholecystectomy. Pancreas: Normal. Spleen: Hypoattenuating lesion measuring 8 mm in greatest axial dimension(series 4, image 30), likely simple cyst or hemangioma. Right Genitourinary Kidney: no calculi. Linear hyperattenuating material is noted in the superior pole of the right kidney which may represent postsurgical changes. Multiple hypoattenuating cystic lesions are noted throughoutthe right kidney. Attenuation differences represent a combination of simple renal cysts and proteinaceous/hemorrhagic cysts (Bosniak 1 and 2). Ureter: no calculi. Obstruction/Hydronephrosis: None. Left Genitourinary Kidney: no calculi. Multiple hypoattenuating cystic lesions are noted throughout the left kidney. Attenuation differences represent a combination of simple renal cysts and proteinaceous/hemorrhagic cysts (Bosniak 1 and 2). Exophytic hemorrhagic cyst is noted in the left inferior pole with internal hematocrit level (series 4, image 70). Isoattenuating, mildly enhancing lesion in the superior pole of the left kidney with internal areas of hypoattenuation which may representnecrosis measures 2.4 x 2.1 cm (series 4, image 38; series 9, image 91). Ureter: no calculi. Obstruction/Hydronephrosis: None. Adrenals: Normal. Retroperitoneum: Multiple prominent periaortic lymph nodes, for example a 7 mm periaortic lymph node between the aorta and left kidney (series 4, image 53). No evidence of lymphadenopathy. Peritoneum: The distal end of a peritoneal dialysis catheter coils within the mesentery. Small volume ascites, likely from peritoneal dialysis. Gastrointestinal: The stomach and visualized loops of large and small bowel areunremarkable. Appendix: Not seen. Vasculature: The visualized right common iliac only shows a punctate area ofcalcified atherosclerosis. The origin of the visualized left common iliac artery shows a small area of calcified atherosclerosis. Otherwise thevisualized common iliac arteries are patent without focal stenosis. Bones: The visible osseous structures are intact. Soft tissues: Normal. Impression: 1.Isoattenuating, mildly enhancing lesion in the superior pole of theleft kidney with internal areas of hypoattenuation which may representnecrosis measures 2.4 x 2.1 cm. This lesion is concerning for renal cellcarcinoma (Bosniak 4). Urologic consultation recommended. 2.Multiple hypoattenuating cystic lesions throughout the bilateralkidneys with various amounts of attenuation represent simple and proteinaceous/hemorrhagic cysts (Bosniak 1 and 2). The size and configuration cysts are largely unchanged compared to prior examination. 3.Unchanged 7 mm left lower lobe solid nodule. If the patient is at high-risk for pulmonary malignancy a follow-up CT in 18-24 months from 11/09/2019 is recommended to ensure stability. Report dictated by Donny Oneill DO (president financial institution) I, Dr. RODRICK JOSEPH have personally reviewed and interpreted this examination/study. This report was electronically signed by RODRICK JOSEPH on 11:16 PM . Alan Davenport MD CT ORDERABLES * HEMOGLOBIN A1C - POINT OF CARE (AMB) [facility] (05/17/2020 1:19 PM CDT) Hemoglobin A1c POCT 11.1 BLOOD SPECIMEN / Unknown 05/17/2020 1:19 PM CDT Miya Juárez APRN-SENIOR SUPPORT ENGINEER LAB - POINT O F CARE ORDERABLES * FL CYSTOGRAM VOIDING (12/02/2019 10:00 AM CDT) Anatomical Region Laterality Modality Abdomen, Pelvis Radiographic Pastora ging, X-Ray Angiography 12/02/2019 1:33 PM CDT Impressions 12/02/2019 1:40 PM CDT IMPRESSION: Normal bladder with no evidence of reflux or post void residual. This report was electronically signed by RAYMUNDO WORLEY M.D. ??on 12/02/2019 1:40 PM . Narrative 12/02/2019 1:40 PM CDT Exam: FL CYSTOGRAM VOIDING Date: 12/02/2019 12:23 PM History: Z01.818: Pre-transplant evaluation for kidney transplant Fluoroscopy time: 0.8 minutes TECHNIQUE: The patient was placed on the fluoroscopy table in supine position. AP teacher of the visually impaired image was obtained. A Key catheter was placed under sterile technique. The bladder was filled with 300 cc Cystografin by gravity. Images were obtained in AP, oblique, and lateral projections. After removal of the catheter, voiding images were obtained. FINDINGS: The bladder contour is normal. No filling defect is identified. No vesicoureteral reflux is observed. Voiding is normal with no postvoid residual. No urethral abnormality is evident. Procedure Note Raymundo Worley MD - 12/02/2019 Exam: FL CYSTOGRAM VOIDING Date: 12/02/2019 12:23 PM History: Z01.818: Pre-transplant evaluation for kidney transplant Fluoroscopy time: 0.8 minutes TECHNIQUE: The patient was placed on the fluoroscopy table in supine position. AP teacher of the visually impaired image was obtained. A Key catheter was placed under sterile technique. The bladder was filled with 300 cc Cystografin by gravity. Images were obtained in AP, oblique, and lateral projections. After removal of the catheter, voiding images were obtained. FINDINGS: The bladder contour is normal. No filling defect isidentified. No vesicoureteral reflux is observed. Voiding is normal with no postvoid residual. No urethral abnormality is evident. IMPRESSION: Normal bladder with no evidence of reflux or post void residual. This report was electronically signed by RAYMUNDO WORLEY M.D. on12/02/2019 1:40 PM . Alan Davenport MD FLUOROSCOPY ORDERABL ES * BLOOD TYPE ABO+ RH PANEL (11/09/2019 10:20 AM CDT) ABO Rh O NEG 11/09/2019 12:07 PM CDT [facility] Blood BLOOD SPECIMEN / Unknown Lab Venipuncture / Unknown 11/09/2019 10:20 AM CDT 11/09/2019 11:20 AM CDT Alan Davenport MD LAB - BLOOD BANK ORD ERABLES [facility] BLOOD BANK LAB [address] [place] [address], [facility] [phone] * HLA TYPING DNA LOW RESOLUTION DR,DQ (11/09/2019 10:13 AM CDT) DR DQ Low Resolution DRB1-1 03 (DR17) 12/09/2019 3:33 PM CDT [facility] ([facility]) DR DQ Low Resolution DRB1-2 11 12/09/2019 3:33 PM CDT [facility] ([facility]) DR DQ Low Resolution DQB1-1 02 12/09/2019 3:33 PM CDT [facility] ([facility]) DR DQ Low Resolution DQB1-2 03 (DQ7) 12/09/2019 3:33 PM CDT [facility] ([facility]) DR DQ Low Resolution DRB3-1 01 12/09/2019 3:33 PM CDT [facility] ([facility]) DR DQ Low Resolution DRB3-2 02 12/09/2019 3:33 PM CDT [facility] ([facility]) DR DQ Low Resolution DRB4-1 Negative 12/09/2019 3:33 PM CDT [facility] ([facility]) DR DQ Low Resolution DRB4-2 Negative 12/09/2019 3:33 PM CDT [facility] ([facility]) DR DQ Low Resolution DRB5-1 Negative 12/09/2019 3:33 PM CDT [facility] ([facility]) DR DQ Low Resolution DRB5-2 Negative 12/09/2019 3:33 PM CDT [facility] ([facility]) DR DQ Low Resolution Methodology SSOP 12/09/2019 3:33 PM CDT [facility] ([facility]) Comment DR DQ Low Resolution - 12/09/2019 3:33 PM CDT [facility] ([facility]) DR DQ Low Resolution test date 12/09/2019 12/09/2019 3:33 PM CDT [facility] ([facility]) Comment: This test was developed and its performance characteristics determined by the [facility]. ??It has not been cleared or approved by the U.S. Food and Drug Administration. ??The FDA has determined that such clearance or approval is not necessary. ??This test is used for clinical purposes. ??It should not be regarded as investigational or for research. This laboratory is certified under the Clinical Laboratory Improvement Amendments of 1988 (CLIA-88) as qualified to perform high complexity clinical laboratory testing. ??CLIA ID# [id number] Performed at: ??[facility], [address] @ [facility], [place] ??[address] Nursing Techn: Juan Diego Martin MD, Blood BLOOD SPECIMEN / Unknown Lab Venipuncture / Unknown 11/09/2019 10:13 AM CDT 11/10/2019 3:47 AM CDT Alan Davenport MD LAB - BLOOD BANK ORD ERABLES [facility] ([facility]) [address] [place] [address], [facility] * HLA TYPING DNA LOW RESOLUTION A,B,C (11/09/2019 10:13 AM CDT) Pathologist [facility] ABC DNA A1 02 12/09/2019 3:34 PM CDT [facility] ([facility]) ABC DNA A2 03 12/09/2019 3:34 PM CDT [facility] ([facility]) ABC DNA B1 08 12/09/2019 3:34 PM CDT [facility] ([facility]) ABC DNA B2 44 12/09/2019 3:34 PM CDT [facility] ([facility]) ABC DNA BW1 6 12/09/2019 3:34 PM CDT [facility] ([facility]) ABC DNA BW2 4 12/09/2019 3:34 PM CDT [facility] ([facility]) ABC DNA C1 02 12/09/2019 3:34 PM CDT [facility] ([facility]) ABC DNA C2 07 12/09/2019 3:34 PM CDT [facility] ([facility]) ABC DNA Methodology SSOP 12/08 3:34 PM CDT [facility] ([facility]) Comment ABC DNA - 0 3:34 PM CDT [facility] ([facility]) ABC DNA Test Date 0 12/09/2019 3:34 PM CDT [facility] ([facility]) Comment: This test was developed and its performance characteristics determined by the [facility]. ??It has not been cleared or approved by the U.S. Food and Drug Administration. ??The FDA has determined that such clearance or approval is not necessary. ??This test is used for clinical purposes. ??It should not be regarded as investigational or for research. This laboratory is certified under the Clinical Laboratory Improvement Amendments of 1988 (CLIA-88) as qualified to perform high complexity clinical laboratory testing. ??CLIA ID# [id number] Performed at: ??[facility], [address] @ [place], [place] ??[address] Nursing Techn: Juan Diego Martin MD, Blood BLOOD SPECIMEN / Unknown Lab Venipuncture / Unknown 11/09/2019 10:13 AM CDT 11/10/2019 3:47 AM CDT Alan Davenport MD LAB - BLOOD BANK ORD ERABLES [facility] ([facility]) [address] [place] [address], [facility] * HLA ANTIBODY SCREEN LUM CLASS 2 ID (11/09/2019 10:13 AM CDT) Pathologist [facility] % PRA 4 12/09/2019 3:33 PM CDT [facility] ([facility]) Class 2 LUM Specificity - 12/09/2019 3:33 PM CDT [facility] ([facility]) Class 2 LUM Test Date 0 12/09/2019 3:33 PM CDT [facility] ([facility]) Comment: This test was developed and its performance characteristics determined by the [facility]. ??It has not been cleared or approved by the U.S. Food and Drug Administration. ??The FDA has determined that such clearance or approval is not necessary. ??This test is used for clinical purposes. ??It should not be regarded as investigational or for research. This laboratory is certified under the Clinical Laboratory Improvement Amendments of 1988 (CLIA-88) as qualified to perform high complexity clinical laboratory testing. ??CLIA ID# [id number] Performed at: ??[facility], [address] @ [place], [place] ??[address] Nursing Techn: Juan Diego Martin MD, Blood BLOOD SPECIMEN / Unknown Lab Venipuncture / Unknown 11/09/2019 10:13 AM CDT 11/10/2019 3:40 AM CDT Alan Davenport MD LAB - BLOOD BANK ORD ERABLES [facility] ([facility]) [address] [place] [address], [place] * HLA ANTIBODY SCREEN LUM CLASS 1 ID (11/09/2019 10:13 AM CDT) % PRA 0 12/09/2019 3:33 PM CDT [facility] ([facility]) Class 1 LUM Specificity - 12/09/2019 3:33 PM CDT [facility] ([facility]) Class 1 LUM Test Date 0 12/09/2019 3:33 PM CDT [facility] ([facility]) Comment: This test was developed and its performance characteristics determined by the [facility]. ??It has not been cleared or approved by the U.S. Food and Drug Administration. ??The FDA has determined that such clearance or approval is not necessary. ??This test is used for clinical purposes. ??It should not be regarded as investigational or for research. This laboratory is certified under the Clinical Laboratory Improvement Amendments of 1988 (CLIA-88) as qualified to perform high complexity clinical laboratory testing. ??CLIA ID# [id number] Performed at: ??[facility], [address] @ [place], [place] ??[address] Nursing Techn: Juan Diego Martin MD, Blood BLOOD SPECIMEN / Unknown Lab Venipuncture / Unknown 11/09/2019 10:13 AM CDT 11/10/2019 3:40 AM CDT Alan Davenport MD LAB - BLOOD BANK ORD ERABLES [facility] ([facility]) [address] [place] [address], [place] * HIV-1 HIV-2 ANTIGEN/ANTIBODY (11/09/2019 10:13 AM CDT) HIV Antigen/Antibod y 1 & 2 Non-reacti ve Non-react sylvie 11/09/2019 12:26 PM CDT [facility] Comment:Neither HIV-1 p24 An tigen nor HIV-1/HIV-2 Antibodies are detected. Blood BLOOD SPECIMEN / Unknown Lab Venipuncture / Unknown 11/09/2019 10:13 AM CDT 11/09/2019 11:10 AM CDT Alan Davenport MD LAB - HEMATOLOGY ORD ERABLES Performing Organization Address City/[facility]/ZIP Co de Phone Number [facility] LABORATORY [facility] [address] [place] [address], [facility] [phone] * RUBELLA ANTIBODY IGG TITER (11/09/2019 10:13 AM CDT) Rubella Antibody IgG >330.0 IU/mL 11/11/2019 11:06 AM CDT [employer] ([facility]) Comment: INTERPRETIVE INFORMATION: Rubella Antibody, IgG ??Less than 9 IU/mL ........ Not Detected ??9 - 9.9 IU/mL ............ Indeterminate-Repeat testing in ? 10-14 days may be helpful. ??10 IU/mL or Greater ...... Detected The best evidence for current infection is a significant change on two appropriately timed specimens, where both tests are done in the same laboratory at the same time. The magnitude of the measured result is not indicative of the amount of antibody present. Performed By: [employer] [address] [place] [address] [employer] Technician: Kaur Blankenship MD Blood BLOOD SPECIMEN / Unknown Lab Venipuncture / Unknown 11/09/2019 10:13 AM CDT 11/09/2019 11:10 AM CDT Alan Davenport MD LAB - SEROLOGY ORDER MICHELLE Performing Organization Address City/[facility]/ZIP Co de Phone Number [employer] [facility]) [address] * RUBEOLA ANTIBODY IGG (11/09/2019 10:13 AM CDT) Measles (Rubeola) Antibody IgG >300.0 AU/mL 11/11/2019 12:20 PM CDT [facility] [employer] ([facility]) Comment: INTERPRETIVE INFORMATION: Measles (Rubeola) Antibody, IgG ??13.4 AU/mL or less........ Negative - No significant level ? of detectable measles (rubeola) ? IgG antibody. ??13.5-16.4 AU/mL .......... Equivocal - Repeat testing in ? 10-14 days may be helpful. ??16.5 AU/mL or greater .... Positive - IgG antibody to ? measles (rubeola) detected ? which may indicate a current ? or past exposure/immunization ? to measles (rubeola). The best evidence for current infection is a significant change on two appropriately timed specimens, where both tests are done in the same laboratory at the same time. Performed By: [employer] [address] [place] [address] [employer] Technician: Kaur Blankenship MD Blood BLOOD SPECIMEN / Unknown Lab Venipuncture / Unknown 11/09/2019 10:13 AM CDT 11/09/2019 11:11 AM CDT Alan Davenport MD LAB - CHEMISTRY PK ZENG [employer] ([facility]) [address] * MUMPS ANTIBODY IGG (11/09/2019 10:13 AM CDT) Mumps Virus Antibody IgG >300.0 AU/mL 11/11/2019 11:57 AM CDT [facility] [employer] ([facility]) Comment: INTERPRETIVE INFORMATION: Mumps Ab, IgG by [facility] ??8.9 AU/mL or less .... Negative - No significant level of ? detectable IgG mumps virus antibody ??9.0-10.9 AU/mL ....... Equivocal - Repeat testing in - ? days may be helpful ??11.0 AU/mL or greater: Positive - IgG antibody to mumps ? virus detected, which may indicate ? a current or past exposure/ ? immunization to mumps virus. The best evidence for current infection is a significant change on two appropriately timed specimens, where both tests are done in the same laboratory at the same time. Performed By: [employer] [address] [place] [address] [employer] Technician: Kaur Blankenship MD Blood BLOOD SPECIMEN / Unknown Lab Venipuncture / Unknown 11/09/2019 10:13 AM CDT 11/09/2019 11:10 AM CDT Alan Davenport MD LAB - CHEMISTRY PK ZENG NHTIEN [employer] ([facility]) [address] * VARICELLA ZOSTER ANTIBODY IGG (11/09/2019 10:13 AM CDT) Varicella zoster Virus Antibody IgG 1243.0 IV 11/11/2019 12:55 PM CDT [employer] ([facility]) Comment: INTERPRETIVE INFORMATION: VZV Ab, IgG 134.9 IV or less ....... Negative - No significant level of ? detectable IgG varicella-zoster ? antibody. 135.0 - 164.9 IV ....... Equivocal - Repeat testing in ? 10-14 days may be helpful. 165.0 IV or greater .... Positive - IgG antibody to ? varicella-zoster detected, which ? may indicate a current or past ? varicella-zoster infection. The best evidence for current infection is a significant change on two appropriately timed specimens, where both tests are done in the same laboratory at the same time. Performed By: [employer] [address] [place] [address] [employer] Technician: Kaur Blankenship MD Blood BLOOD SPECIMEN / Unknown Lab Venipuncture / Unknown 11/09/2019 10:13 AM CDT 11/09/2019 11:11 AM CDT Alan Davenport MD LAB - CHEMISTRY PK ZENG [facility] [facility]) [address] [place] [address], [facility] * (ABNORMAL) CHARLENE-GAONA VIRUS ANTIBODY TO VCA IGG (11/09/2019 10:13 AM CDT) Charlene-Gaona Virus Antibody IgG Viral Capsid Antigen 277.0(H) 0.0 - 21.9 U/mL 11/11/2019 12:37 PM CDT [facility] [employer] ([facility]) Comment: INTERPRETIVE INFORMATION: Charlene-Gaona Virus Antibody to ?Viral Capsid Antigen, IgG ??17.9 U/mL or less.......Not Detected ??18.0-21.9 U/mL..........Indeterminate - Repeat testing in ?10-14 days may be helpful. ??22.0 U/mL or greater....Detected Performed By: [employer] [address] [place] [address] [employer] Technician: Kaur Blankenship MD Blood BLOOD SPECIMEN / Unknown Lab Venipuncture / Unknown 11/09/2019 10:13 AM CDT 11/09/2019 11:12 AM CDT Alan Davenport MD LAB - CHEMISTRY PK ZENG Performing Organization Address City/[facility]/ZIP Co de Phone Number [facility] [employer] ([facility]) [address] * TYPE + SCREEN PANEL (11/09/2019 10:13 AM CDT) Antibody Screen NEG 0 12:07 PM CDT [facility] BLOOD BANK LAB ABO Rh O NEG 11/09/2019 12:07 PM CDT [facility] BLOOD BANK LAB Blood Bank BLOOD SPECIMEN / Unknown Lab Venipuncture / Unknown 11/09/2019 10:13 AM CDT 11/09/2019 11:20 AM CDT Alan Davenport MD LAB - BLOOD BANK ORD ASHLEY [facility] BLOOD BANK LAB [address] [place] [address], [facility] [phone] * CT ABDOMEN AND PELVIS NON IV CONTRAST (11/09/2019 9:57 AM CDT) Anatomical Region Laterality Modality Abdomen, Pelvis Computed Tomogra phy 11/09/2019 10:5 6 AM CDT Impressions 11/09/2019 3:11 PM CDT IMPRESSION: 1. Bilateral renal cysts. Some lesions are more hyperattenuating than simple fluid and may represent hemorrhagic or proteinaceous cysts although cannot exclude malignancy on this limited noncontrast examination. Linear hyperattenuating density in the upper pole of right kidney laterally likely represents postsurgical/posttreatment changes. Mild abdominal aorta and iliac artery atherosclerotic calcifications. 2. Left lower lobe pulmonary nodule measuring 5 mm. According to Fleischner criteria, a follow-up CT is optional in one year. 3. ??Small bilateral inguinal hernias which contain mesenteric fat but no bowel. 4. Enlarged prostate. Dictated by Agusto Bradley MD (president financial institution). I, Dr. Terry DE LEON M.D. have personally reviewed and interpreted this examination/study. This report was electronically signed by Terry DE LEON M.D. ??on 11/09/2019 3:11 PM . Narrative 11/09/2019 3:11 PM CDT EXAMINATION: Computed tomography (CT) of the abdomen and pelvis without contrast HISTORY: Pre-transplant evaluation for kidney transplant TECHNIQUE: CT of the abdomen and pelvis was performed without contrast according to standard protocol. FINDINGS: No prior study is available for comparison at the time of this dictation. There are mild vascular calcifications of the visible coronary arteries. There are mild vascular calcifications of the abdominal aorta and the bilateral common iliac arteries which are worse on the left side. There is no significant atherosclerotic calcification of the bilateral external iliac arteries. Calcified plaques are present in the bilateral renal arteries with mild narrowing. There is a 5 mm pulmonary nodule in the left lower lobe (series 3, image 23). The heart size is normal within a small amount of pericardial fluid. The bilateral kidneys are mildly small with [...] urinary calculus. Renal vascular anatomy is conventional. The liver appears no evidence of a noncontrast examination. The gallbladder is surgically absent. The intrahepatic and extrahepatic bile ducts are nondilated. The spleen, the pancreas and adrenal glands are normal. The distal esophagus and stomach appear normal. The small bowel and colon are normal in caliber without evidence of wall thickening or obstruction. The appendix appears normal without appendicolith or surrounding inflammatory changes. No free air or free fluid is identified within the abdomen. There is no abdominal lymphadenopathy. There are small bilateral inguinal hernias which contain fat but no bowel. The urinary bladder is distended with fluid and appears normal. The prostate is enlarged, measuring 5.6 cm transversely. No free fluid is seen within the pelvis. There is no pelvic lymphadenopathy. Bone windows demonstrate no suspicious lytic or blastic lesions. The visible osseous structures are intact. Procedure Note Tosha De Leon MD - 11/09/2019 EXAMINATION: Computed tomography (CT) of the abdomen and pelvis without contrast HISTORY: Pre-transplant evaluation for kidney transplant TECHNIQUE: CT of the abdomen and pelvis was performed without contrast according to standard protocol. FINDINGS: No prior study is available for comparison at the time of this dictation. There are mild vascular calcifications of the visible coronary arteries. There are mild vascular calcifications of the abdominal aorta and the bilateral common iliac arteries which are worse on the left side. Thereis no significant atherosclerotic calcification of the bilateral external iliac arteries. Calcified plaques are present in the bilateral renal arteries with mild narrowing. There is a 5 mm pulmonary nodule in the left lower lobe (series 3, image 23). The heart size is normal within a small amount of pericardialfluid. The bilateral kidneys are mildly small with [...] urinary calculus. Renal vascular anatomy is conventional. The liver appears no evidence of a noncontrast examination. The gallbladder is surgically absent. The intrahepatic and extrahepatic bile ducts are nondilated. The spleen, the pancreas and adrenal glands are normal. The distal esophagus and stomach appear normal. The small bowel andcolon are normal in caliber without evidence of wall thickening orobstruction. The appendix appears normal without appendicolith or surrounding inflammatory changes. No free air or free fluid is identified within the abdomen. There is no abdominal lymphadenopathy. There are smallbilateral inguinal hernias which contain fat but no bowel. The urinary bladder is distended with fluid and appears normal. The prostate is enlarged, measuring 5.6 cm transversely. No free fluid isseen within the pelvis. There is no pelvic lymphadenopathy. Bone windows demonstrate no suspicious lytic or blastic lesions. The visible osseous structures are intact. IMPRESSION: 1. Bilateral renal cysts. Some lesions are more hyperattenuating than simple fluid and may represent hemorrhagic or proteinaceous cystsalthough cannot exclude malignancy on this limited noncontrast examination.Linear hyperattenuating density in the upper pole of right kidney laterally likely represents postsurgical/posttreatment changes. Mild abdominalaorta and iliac artery atherosclerotic calcifications. 2. Left lower lobe pulmonary nodule measuring 5 mm. According to Fleischner criteria, a follow-up CT is optional in one year. 3. Small bilateral inguinal hernias which contain mesenteric fat but no bowel. 4. Enlarged prostate. Dictated by Agusto Bradley MD (president financial institution). IDr. Terry M.D. have personally reviewed and interpretedthis examination/study. This report was electronically signed by Terry DE LEON M.D. on 11/09/2019 3:11 PM . Alan Davenport MD CT ORDERABLES * XR PANOREX (11/09/2019 9:47 AM CDT) Anatomical Region Laterality Modality Head Radiographic Pastora ging 11/09/2019 10:3 9 AM CDT Impressions 11/10/2019 9:54 AM CDT IMPRESSION: No periapical abscess. Dictated by Felipe Younger MD (president financial institution). Dr. ADRIANA Leigh have personally reviewed and interpreted this examination/study. This report was electronically signed by ADRIANA RODRIGUEZ ??on 11/10/2019 9:54 AM . Narrative 11/10/2019 9:54 AM CDT EXAMINATION: Panorex HISTORY: Z01.818: Pre-transplant evaluation for kidney transplant FINDINGS: No prior study is available for comparison at the time of this dictation. Multiple dental restorations are identified. Impacted bilateral third maxillary and mandibular molars are noted. No acute mandibular fracture is identified. Both temporomandibular joints are intact. There is no periapical abscess. Procedure Note Adriana Rodriguez MD - 11/10/2019 EXAMINATION: Panorex HISTORY: Z01.818: Pre-transplant evaluation for kidney transplant FINDINGS: No prior study is available for comparison at the time of this dictation. Multiple dental restorations are identified. Impacted bilateral third maxillary and mandibular molars are noted. No acute mandibular fractureis identified. Both temporomandibular joints are intact. There is no periapical abscess. IMPRESSION: No periapical abscess. Dictated by Felipe Younger MD (president financial institution). Dr. ADRIANA Leigh have personally reviewed and interpreted this examination/study. This report was electronically signed by ADRIANA RODRIGUEZ on 11/10/2019 9:54 AM . Alan Davenport MD DIAGNOSTIC IMAGING O RDERABLES * ECHO STRESS TEST W DOBUTAMINE (11/09/2019 8:02 AM CDT) Anatomical Region Laterality Modality Chest Echo 11/09/2019 8:02 AM CDT Narrative Procedure Note Roosevelt Aragon MD - 11/09/2019 Alan Davenport MD ECHOCARDIOGRAPHY RAD IANT * XR HAND RIGHT 3VW OR MORE (03/05/2018 10:25 AM [employer]) Anatomical Region Laterality Modality Wrist / Hand Radiographic Pastora ging 03/05/2018 11:3 0 AM [employer] Impressions 03/05/2018 12:17 PM [employer] IMPRESSION: 1. No acute bony abnormalities. No significant joint space narrowing. 2. Suggestion of mild diffuse soft tissue swelling of the third digit. Dictated by Lizandro Diaz MD (president financial institution). Dr. Terry Leigh M.D. have personally reviewed and interpreted this examination/study. This report was electronically signed by Terry DE LEON M.D. ??on 03/05/2018 12:17 PM . Narrative 03/05/2018 12:17 PM [employer] EXAMINATION: XR HAND RIGHT 3VW OR MORE HISTORY: Pain right hand middle finger COMPARISON: No prior study is available for comparison. FINDINGS: No acute fracture or dislocation identified. No significant abnormal joint space narrowing is identified. No other erosions or osseous production is identified. The joint spaces are maintained. There is mild, fusiform soft tissue edema of the third digit. Procedure Note Tosha De Leon MD - 03/05/2018 EXAMINATION: XR HAND RIGHT 3VW OR MORE HISTORY: Pain right hand middle finger COMPARISON: No prior study is available for comparison. FINDINGS: No acute fracture or dislocation identified. No significant abnormaljoint space narrowing is identified. No other erosions or osseous productionis identified. The joint spaces are maintained. There is mild, fusiformsoft tissue edema of the third digit. IMPRESSION: 1. No acute bony abnormalities. No significant joint space narrowing. 2. Suggestion of mild diffuse soft tissue swelling of the third digit. Dictated by Lizandro Diaz MD (president financial institution). Dr. Terry Leigh M.D. have personally reviewed and interpretedthis examination/study. This report was electronically signed by Terry DE LEON M.D. on 03/05/2018 12:17 PM . Aracely Rock PA-Monica DIAGNOSTIC IMAG ING ORDERABLES * XR KNEE 3 VW RIGHT (03/28/2017 8:14 AM RADIO AERIAL INSTALLER) Anatomical Region Laterality Modality Lower Extremity Computed Radiogr aphy Narrative 03/28/2017 1:03 PM RADIO AERIAL INSTALLER Nadja Jenkins, RT(R) ? 03/28/2017 ??1:03 PM See progress notes for results Marilou Rodríguez PA-C DIAGNOSTIC IM AGING ORDERABLES Care Teams Comic Illustrator Relationship Specialty Start Date End Date Jeff Strickland MD [address] [place] [address] PCP - General 03/05/18 [place] [id number] [facility] [address] [place] [id number] Orthopedic Surgery 03/28/17
--- OUTSIDE RECORDS SUMMARY | 2024-03-13 14:39 | XMS_ITS ---
Author Organization [facility] Address [address] [place] [address] Care Team Providers Care Cylinder Worker Name Role Phone Deadnre Bojorquez MD Unavailable [phone] Jeff Strickland MD Primary Care Provider Transplant Episode Kidney Candidate [facility] ([place], [place]) - [facility] Center waitlisted on 05/06/2022 Marked as Inactive on 12/19/2022 Reason: Temporarily too Sick Kidney CoordinatorSavanna Edwards RN Phone: N/A Fax: N/A Email: N/A Scores Score Value Updated Exceptions/Reas ons CPRA Not available EPTS (Calc) 95 03/13/2024 Marshall Organ Diagnosis Organ Primary Contributory Kidney Diabetes Mellitus - Type II Hype rtensive Nephrosclerosis Care Team Name Role Phone Fax Email Savanna Edwards RN Kidney Coordinator N/A N/A N/A Alan Mccall MD Referring Physician N/A N/A N/A Anjali Mott LMSW Corporate Learning Consultant N/A N/A N/A Millie Lindquist Crack Off Person N/A N/A N/A Events Pre-Transplant Referred: 12/05/2021 Evaluation began: 12/13/2021 Committee: 05/02/2022 UNOS qualified: 01/17/2020 Center waitlisted: 05/06/2022 Dialysis History Dialysis History Start End Type Comments Center 01/17/2020 Peritoneal [facility] D[facility] Information Center Phone Fax Address [facility] [phone] [address] [place] [id number]
--- OUTSIDE RECORDS SUMMARY | 2024-03-13 14:39 | XMS_ITS | Clinical Summary ---
Author Organization [facility] Address [address] [place] [address] Phone Care Team Providers Care Rawhide Bone Roller Name Role Phone Jeff Strickland MD Primary Care Provider [phone] Allergies No known active allergies Medications pantoprazole (PROTONIX) 40 mg Tablet, Delayed Release (E.C.) Take 40 mg by mouth daily. Active zolpidem (AMBIEN) 10 mg tablet Take 10 mg by mouth nightly as needed for Insomnia. Active atorvastatin (LIPITOR) 40 mg tablet Take 40 mg by mouth Daily LATE. Active fenofibrate micronized (LOFIBRA) 134 mg Capsule Take 134 mg by mouth daily. Active valsartan-hydro CHLOROthiazide (DIOVAN HCT) 320-12.5 mg tablet Take 1 Tablet by mouth daily. Active linagliptin (TRADJENTA) 5 mg Tablet Take by mouth daily. Active carvedilol (COREG) 25 mg tablet Take 25 mg by mouth 2 times daily with meals. Active carvedilol (COREG) 6.25 mg tablet Take 6.25 mg by mouth 2 times daily with meals. Active levothyroxine 112 mcg tablet Take 112 mcg by mouth daily procurement specialist. Active aspirin (ANGELLA) 325 mg tablet Take 325 mg by mouth daily. Active Vit C-Vit P-Luiaxl-MvBi-L utein (PRESERVISION) 226 mg-200 unit -5 mg-0.8 mg Capsule Take 1 Capsule by mouth daily. Active insulin glargine (LANTUS) 100 unit/mL pen syringe Inject 50 Units by subcutaneous injection 2 times daily. Active ondansetron (ZOFRAN ODT) 4 mg Tablet, Rapid Dissolve Take 4 mg by mouth every 8 hours as needed for Nausea/Emesis Dissolve tablet on top of tongue, then swallow with saliva. . Active oxyCODONE-aceta minophen (PERCOCET) 5-325 mg tablet Take 1 Tablet by mouth every 4 hours as needed for Pain, Moderate. Active omeprazole (PriLOSEC) 20 mg Capsule, Delayed Release(E.C.) Take 20 mg by mouth daily. Active hydrALAZINE (APRESOLINE) 50 mg tablet Take 50 mg by mouth 4 times daily. Active SODIUM BICARBONATE, BULK, ORAL Take by mouth. Acti ve dulaglutide (TRULICITY) 1.5 mg/0.5 mL injection Inject 1.5 mg by subcutaneous injection. Active furosemide (LASIX) 40 mg tablet Take 40 mg by mouth every other day. Active cholecalciferol , Vitamin D3, 2,000 unit Tablet Take by mouth. Activ e predniSONE (DELTASONE) 50 mg tablet Take 50 mg by mouth daily. Active Active Problems Problem Noted Date Diagnosed Date Acute pain of left shoulder 01/25/2019 Encounters Date Type Department Care Team Description 03/03/2024 2:05 PM RESEARCH AND DEVELOPMENT TECHNICIAN Ancillary Procedure [facility] [address] [place] [address] Sergio Rivera MD Pain in shoulder region, left; Pain in shoulder region, right 02/24/2024 External Device Data ST[facility] ABSTRACTION Provider, Abstract 12/17/2023 External Device Data [facility] ABSTRACTION Provider, Abstract from Last 3 Months Family History Medical History Relation Name Comments No Known Problems Brother x2 No Known Problems Father No Known Problems Mother No Known Problems Sister Relation Name Status Comments Brother x2 Alive Father Mother Sister Alive Social History Tobacco Use Types Packs/Day Years Used Date Smoking Tobacco: Never Alcohol Use Standard Drinks/Week Comments Yes 0 (1 standard drink = 0.6 oz pur e alcohol) rare Sex and Gender Information Value Date Recorded Sex Assigned at Not on file Legal Sex Male 10:26 AM CDT Gender Identity Not on file Sexual Orientation Not on file Occupation Industry Job Start Date Job End Date retired Not on file Not on file Not on file Last Filed Vital Signs Vital Sign Reading Time Taken Comments Blood Pressure 167/77 02/04/2019 9:16 AM RESEARCH AND DEVELOPMENT TECHNICIAN Pulse 64 02/04/2019 9:16 AM RESEARCH AND DEVELOPMENT TECHNICIAN Temperature 36.5 ??C (97.7 ??F) 02/04/2019 9:16 AM CS T Respiratory Rate 16 02/04/2019 9:16 AM RESEARCH AND DEVELOPMENT TECHNICIAN Oxygen Saturation 97% 02/04/2019 9:16 AM RESEARCH AND DEVELOPMENT TECHNICIAN Inhaled Oxygen Concentration - - Weight 113.4 kg (250 lb) 02/04/2019 9:16 AM RESEARCH AND DEVELOPMENT TECHNICIAN Height 175.3 cm (5' 9 ) 02/04/2019 9:16 AM RESEARCH AND DEVELOPMENT TECHNICIAN Body Mass Index 36.92 02/04/2019 9:16 AM RESEARCH AND DEVELOPMENT TECHNICIAN Plan of Treatment Health Maintenance Due Date Last Done Comments DIABETES MICROALBUMIN ANNUAL SCREEN 01/19/1974 LDL CHOLESTEROL ANNUAL 01/19/1974 COLORECTAL SCREENING 01/19/2001 Colorectal Cancer Screening 01/19/2001 FIT-DNA Q 3 years 01/19/2001 FIT/FOBT Q 1 year 01/19/2001 Flex Sig/CT Colonography Q 5 years 01/19/2001 ZOSTER VACCINE (1 of 2) 01/19/2006 RSV VACCINE (60+ or ) (1 - Risk 60-74 years 1-dose series) 2016 PNEUMOCOCCAL VACCINE 65+ YEA RS (2 of 2 - PPSV23) 10/04/2020 08/09/2020, 08/09/2020, 02/09/2020, Additional history exists DIABETES ANNUAL FOOT EXAM 10/18/2022 10/18/2021 INFLUENZA VACCINE (#1) 2023 , 01/17/2020, 01/17/2020, Additional history exists COVID-19 Vaccine (4 - 2023-2 5 season) 2023 05/05/2020, 04/20/2020, 03/20/2020 DIABETES HBA1C Q 6 MONTHS 05/06/20242023, 03/25/2023, 11/30/2022, Additional history exists DIABETES ANNUAL RETINAL EXAM 12/09/2024 12/10/2023, 10/08/2023 DTAP/TDAP/TD VACCINES (3 - T d or Tdap) 04/10/2026 04/10/2016, 04/09/2016 Procedures Procedure Name Priority Date/Time Associated Diagnosis Comments XR SHOULDER 2+ VW BILAT Routine 03/03/2024 2:26 PM RESEARCH AND DEVELOPMENT TECHNICIAN Pain in shoulder region, left Pain in shoulder region, right from Last 3 Months Results * XR SHOULDER 2+ VW BILAT (03/03/2024 2:26 PM RESEARCH AND DEVELOPMENT TECHNICIAN) Anatomical Region Laterality Modality Upper Extremity Computed Radiogr aphy 03/03/2024 2:27 PM RESEARCH AND DEVELOPMENT TECHNICIAN Impressions 03/03/2024 2:34 PM RESEARCH AND DEVELOPMENT TECHNICIAN IMPRESSION: ?? 1. 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 Narrative 03/03/2024 2:34 PM RESEARCH AND DEVELOPMENT TECHNICIAN EXAM: XR SHOULDER 2+ VW BILAT DATE: 03/03/2024 HISTORY: Pain in shoulder region, left; Pain in shoulder region, right COMPARISON: None. FINDINGS: ?? Right: No acute fracture is noted. The humeral head articulates appropriately with the glenoid. There is degenerative change at the glenohumeral joint was in joint space narrowing and spur formation seen. A subchondral cyst is noted in the humeral head near the expected location of the supraspinatus. There is a linear calcification near the humeral head which suggests calcific tendinitis. There also appears to be a small free fragment in the shoulder joint. Mild spurring of the AC joint is noted. Limited views of the right chest reveal two surgical plates superimposing the right upper thorax on only one view. ?? Left: No acute fracture is noted. The humeral head articulates appropriately with the glenoid. Mild degenerative change at the glenohumeral joint is seen. There is some spurring at the acromioclavicular joint. Limited views of the left chest reveal no acute pulmonary findings. ?? Procedure Note Shawn Pandya MD - 03/03/2024 EXAM: XR SHOULDER 2+ VW BILAT DATE: 03/03/2024 HISTORY: Pain in shoulder region, left; Pain in shoulder region, right COMPARISON: None. FINDINGS: Right: No acute fracture is noted. The humeral head articulates appropriately with the glenoid. There is degenerative change at the glenohumeral joint was in joint space narrowing and spur formation seen. A subchondral cyst is noted in the humeral head near the expected location of the supraspinatus. There is a linear calcification near the humeral head which suggests calcific tendinitis. There also appears to be a small free fragment in the shoulder joint. Mild spurring of the AC joint is noted. Limited views of the right chest reveal two surgical plates superimposing the right upper thorax on only one view. Left: No acute fracture is noted. The humeral head articulates appropriately with the glenoid. Mild degenerative change at the glenohumeral joint is seen. There is some spurring at the acromioclavicular joint. Limited views of the left chest reveal no acute pulmonary findings. IMPRESSION: 1. 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 us Sergio Rivera MD DIAGNOSTIC IMAGING ORDERA BLES Final Result from Last 3 Months Insurance BCBS BLUE ACCESS/TRUE BLUE PPO AETNA MEDICARE SUPPLEMENT AETNA PPO MCR BCBS BLUE ACCESS/TRUE BLUE PPO Care Teams Rawhide Bone Roller Relationship Specialty Start Date End Date Jeff Strickland MD [address] [facility] [address] [place] [id number] PCP - General Family Practice 01/01/19
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
--- OUTSIDE RECORDS SUMMARY | 2024-03-13 14:39 | XMS_ITS | Referral Summary ---
Author Organization [facility] Address [address] [place] [address] Care Team Providers Care Mine Captain Name Role Phone Deandre Bojorquez MD Unavailable Jeff Strickland MD Primary Care Provider [phone] Source Comments [facility],non-owned Affiliates and Associated Physician Practices is amultiple site organization consisting of ambulatory clinics and hospital sitesin [place], [place], [place] and [place]. This disclosure is being madepursuant to the Care Everywhere program and may not contain all information available regarding this patient. Last updated 17.[facility] Encounters Date Type Department Care Team Description 03/12/2024 Lab Requisition [facility] [address] [place] [address] Alan Davenport MD 03/03/2024 Travel 03/03/2024 1:20 PM DRYWALL SPRAYER Office Visit [facility] [address] [facility], [facility] [address] [place] [address] Maylin Cutler DO Chronic diastolic heart failure (HCC) (Primary Dx); Resistant hypertension; End-stage renal disease on peritoneal dialysis (HCC); Atherosclerosis of marshall coronary artery of marshall heart without angina pectoris; Hypertriglyceridemia ; Type 2 diabetes mellitus with other specified complication, unspecified whether fdc insulin use (HCC) 02/04/2024 Lab Requisition [facility] [address] [place] [address] Alan Davenport MD 01/08/2024 Refill [facility] [address] [facility], [place] [address] [place] [phone] Lorna Roca, EQUITIES ANALYST REFILL from Last 3 Months Allergies Active Allergy Reactions Criticality Noted Date [...] 20 MG tabletIndications: Coronary artery disease involving marshall coronary artery of marshall heart without angina pectoris Take 1 (one) [...] (Aspirin 81) 81 MG tabletIndications: CAD in marshall artery Take 1 (one) tablet by mouth once daily 90 tablet 3 4 Active cloNIDine (Catapres) 0.1 MG/24HR patch Apply 1 (one) patch to skin every 7 days Active dilTIAZem ER 12hr 120 MG capsule Take 1 (one) capsule by mouth 2 times daily 60 capsule 11 4 Active fenofibrate (Tricor) 145 MG tabletIndications: Coronary artery disease involving marshall coronary artery of marshall heart without angina pectoris Take 1 (one) tablet by mouth once daily 90 tablet 4 4 Active atorvastatin (Lipitor) 80 MG tabletIndications: Coronary artery disease involving marshall coronary artery of marshall heart without angina pectoris Take 1 (one) tablet by mouth once daily 90 tablet 3 4 Active hydrALAZINE (Apresoline) 10 MG tablet Take 2 (two) tablets by mouth 3 times daily 180 tablet 3 4 Active B Rnkyowb-S-Fdqjq Acid (Dialyvite 800) 0.8 MG 1 tablet Orally Once a day for 30 day(s) Active minoxidil (LONITEN) 2.5 MG tablet Take 1 (one) tablet by mouth 2 times daily 0 03/03/19 25 Discontinu ed(List Clean-Up) Continuous Blood Gluc Multilith Operator (FREESTYLE VIKRAM READER) KERON Use 1 Each once daily 1 Each 0 03/03/19 25 Discontinu ed(List Clean-Up) sevelamer carbonate (RENVELA) 800 MGIndications:Hype rphosphatemia Take 1 (one) tablet by mouth 3 times daily with meals Reasons: High Amount of Phosphate in the Blood 1 03/03/19 25 Discontinu ed(List Clean-Up) sodium bicarbonate 650 MG tablet 2 03/03/19 25 Discontinu ed(List Clean-Up) insulin NPH pen Inject [...] Type 2 diabetes mellitus 12/04/2020 CAD in marshall artery 08/04/2020 Pre-transplant evaluation for kidney transplant 11/10/2019 Overview (09/03/2023): Images from the original note were not included. Grace Interiano 1955 Referring Motor Grader Rough Grade: Alan Mccall Dialysis Info: Type: PD--> HD-->PD Time: 01/17/2020 Blood Type: O NEG Body mass index is 37.54 kg/m??. ALERTS : Dr. Mendoza following enhancing lesion noted to upper pole of the left kidney. IR biopsy confirming oncocytoma in 07/2020. Ladle Liner Helper: Nadia Stock MD ESRD r/t DM2 and HTN Past Medical History: Diagnosis Date Arthropathy Dr Strickland manages. CHF (congestive heart failure) (CMS/HCC) 2 yrs ago On Air Announcer is Dr. Becerra in [place]. CKD (chronic kidney disease), stage V (CMS/HCC) Community acquired pneumonia 2018 [facility] hospitalized. Diabetes mellitus (CMS/HCC) 20 years. [facility]. Ladle Liner Helper Dr. Davis at [place]. 03/26/21 last seen. Esophageal reflux takes med ESRD (end stage renal disease) (CMS/HCC) on PD as of 11/10/20 ESRD on peritoneal dialysis (CMS/HCC) Hypercholesteremia 5-10 yrs meds Hypertension 40's takes meds. Hypothyroidism meds 20 years Kidney stones 5-6 years ago had 2 in the same year. No urologist. Malignancy (CMS/HCC) right kidney 2012 Obstructive sleep apnea [address] Sergey Miller remember doctors name SHABNAM on CPAP Renal cell carcinoma (CMS/HCC) [address] [place] Pruett surgeon. followed up every 6 [...] MD 01/14/2022 2:57 PM Other Consults: Raisa SEARS, Nikunj Walsh, Nba Gruber, Abner ES, Maren D, Mark D, Adrianna E, Triny J, Lisa J, Art Lew, Mundo D, Tyler PK, Kimberly J, Radhai S, Art D, Chanelle R, Walker J, Ace F, Habermann T, Gercelina M, Svitlana P, Christian DS, Bari C, Al- Gabi T, Rubens S, Tamika FARZANEH, Eladio GJ, Lucy C, Lisa G, Thania R, Elissa , Prashanth C, Brice N, Yesi DP, Watt KD. Pretransplant solid organ malignancy and organ transplant candidacy: A consensus expert opinion statement. Am J Transplant. 2020;21(2):460-474. doi: 10.1111/ajt.23986. Epub 2019Dec 09. PMID: [id number]. Urology: 08/06/2023 Attestation signed by Thomas Mendoza [...] CK7 and BerEP4. If this biopsy is professional healthcare representative of the entire lesion, it would [...] it's helpful. ----- Message ----- From: Krystal Abel, PORSHA Sent: 03/28/2022 2:07 PM DRYWALL SPRAYER To: Martinez Sandhu MD, * Papito. I just wanted to send you a [...] in Nov. Thank you Krystal Abel RN [facility], [facility] Oil Well Shooter [phone] endoscopic resection of a sellar mass: 11/22/2021 [...] The original diagnosis remains unchanged. Neurosurgery: 01/08/2022 OBDULIO Interiano is doing well from a neurosurgical [...] a formal visual hay exam with his soot blower. We reviewed the surgical pathology report. He may restart his baby aspirin. At this time, I recommend a follow up MRI pituitary protocol in 3- 6 months with a visit with me after imaging and patient is agreeable. Strict return precautions were reviewed. ALL SPRAYER Cardiology: 08/28/2023 HPI: Mr. Interiano presents to [...] on Blood pressures Solange Guido MD, MD Humidifier Maintenance Worker [place] [facility] Cardiovascular Care 08/28/2023 Cardiology: 10/25/2021 Impression and Plan: 1. CAD post LAD PCI 2. ESRD 3. Atypical chest pain Plan lexiscan stress (no ) due to HTN and also resting echo (patient told he had abnormalities on echo though there is no record of this) Rest of plan per fellow note. Solange Guido MD, MD Humidifier Maintenance Worker [place] [facility] 10/25/2021 07/02/2021 Assessment/plan: Grace Interiano [...] attending Dr. Phan. Ted Ring MD PGY-5, Microgrinder Operator [facility] Cardiology Attending Attestation: Patient seen and examined with Fellow. Please see note for further details. I confirm history, exam, assessment and plan. In addition I note: Interval history: Patient presented to clinic with concerns about BP. Sometimes in 170's then after taking meds (2 hours) in 90's. Feels lightheaded and nauseous when BP low. Frequent BP med changes per manager supply. Encouraged patient to continue detailed BP log. [...] back and forth- typically this is the manager supply in the case of ESRD. DO Markus [...] attending Dr. Guido. Ted Ring MD PGY-6, Microgrinder Operator [facility] Impression and Plan: 1. CAD post PCI of LAD 2. Hypertriglyceredimia Start Tricor Solange Guido MD, MD Humidifier Maintenance Worker [place] [facility] 07/18/2022 Pertinent Previous Committee Presentations: 12/19/2022 Committee Review Decision: Make Inactive Committee Discussion Details: Pt was presented at [facility] to make inactive on the kidney txp wait list. Reviewed pt in [facility], I/P at [facility] 11/29 - 12/03. Sternal Fxr, T2 & T12 thoracic spinal fxr. Likely to get sternal plate surgery. Pt unable to complete annual txp testing, annual cardiololgy appt, Urology appt at this time. Per team, make inactive on wait list. 05/02/2022: Induction Method: Immunosuppression Induction Method/Plan: Antithymocyte globulin (rabbit) (Thymoglobulin) 3 mg/kg Committee Discussion Details: Pt brought to [facility] to discuss possible listing. -Reviewed PMH [...] -Follow up imaging was previously discussed at [facility] on 03/28/2022 and again today. Radiology unable to rule out cancer on imaging. Team decision after [facility] 03/28/2022 was to have pt complete [...] cardiology note from 10/25/2021. Pt follow with [facility] cardiology s/p PCI to LAD with stents x2 in 2020 -Reviewed BP log from Mar and beginning of April 2022. -Reviewed elevated triglycerides. Pt is on atorvastatin 80mg daily. -Reviewed Thyroid US results from 04/25/2022. Team ok with follow up in one year. -No concern voiced from Nany SW -Reviewed current BMI now 37, down from [...] 03/28/2022: Committee Discussion Details: Pt brought to [facility] to review recent CT imaging concerning [...] 09/27/2021: Committee Discussion Details: Pt brought to [facility] due to Pituitary tumor. -Reviewed pts [...] 08/10/2020: Committee Discussion Details: Pt brought to [facility] to discuss recent PCI to mid [...] portion of the study, as per above. [facility]: 08/04/2020 HEMODYNAMIC FINDINGS: LVEDP 18 mmmHg ANGIOGRAPHY: [...] ANTICOAGULATION DURING PCI: Heparin INTERVENTIONAL WIRE: A Aeris wireless pressure wire was advanced beyond the [...] nature. > Dictated by Lalit Muñoz DO (dental resident). Renal US: 05/21/2023 FINDINGS: Right kidney: 10.0 [...] It is the impression of this social media manager that Grace Interiano has several positive factors [...] to be the back up caregiver. Plan: upkeep worker to provide supportive services as needed. Patient remains a reasonable candidate for transplant from a psychosocial perspective. Psychiatric Consult Recommended: No Transplant Labor Standards Director: RAJ Portillo, ESTERS AND EMULSIFIERS SUPERVISOR Abdominal Transplant Labor Standards Director [phone] Transplant Caregiver Confirmation Note Caregiver Confirmation Date Primary Name of Primary: Harriet Interiano Relationship: spouse - Confirmed during initial assessment 01/14/2022 - STORE TEAM LEADER form received on 01/14/2022 - Secondary Name [...] right artificial knee joint 03/28/19 18 Immunizations Name Administration Dates Next Due Marla Kleek primary monoval ent 12+ yr 0.3mL Purple [...] RECOM-OLVERA, QUADR. (FLUBLOCK QUADRIVALENT; 18Y+) (RIV4) 01/17/2020 Social History Tobacco Use Types Packs/Day Years [...] Comments Blood Pressure 134/74 03/03/2024 12:47 PM DRYWALL SPRAYER Pulse 65 03/03/2024 12:47 PM DRYWALL SPRAYER Temperature 36.2 ??C (97.2 ??F) 08/06/2023 1:56 PM CD T Respiratory Rate 18 01/14/2022 1:01 PM DRYWALL SPRAYER Oxygen Saturation 96% 03/03/2024 12:47 PM DRYWALL SPRAYER Inhaled Oxygen Concentration - - Weight 119.7 kg (264 lb) 03/03/2024 12:47 PM DRYWALL SPRAYER Height 172.7 cm (5' 8 ) 03/03/2024 12:47 PM DRYWALL SPRAYER Body Mass Index 40.14 03/03/2024 12:47 PM DRYWALL SPRAYER Functional Status Functional Status Response Date of [...] person have difficulty concentrating/remembering/making decisions? No 08/04/2020 Plan of Treatment Upcoming Encounters Date Type Department Care Team (Late st Contact Info) Description 08/04/2024 11:30 AM CDT Appointment [facility] [address] [place] [address] Thomas Mendoza MD [address] [place] [address] [address] [place] [address] 08/04/2024 1:30 PM CDT Office Visit [facility] [address] [place] [address] Thomas Mendoza MD [address] [place] [address] [address] [place] [phone] Medical Devices Implanted Type Area Sausage Canner Device Identifier Shelf Expiration Date Model / Serial / Lot Sys Cor Stent Xience Srr 3mm 18mm Rap Ex Implanted:Qty: 1 on 08/04/2020 by Javier Lan MD at [facility] Stent Coronary [employer] 06/19/2022 [id number] Description:STENT Sys Cor Stent Xience Srr 3mm 8mm Rap Ex Implanted:Qty: 1 on 08/04/2020 by Javier Lan MD at [facility] Stent Coronary [employer] 09/03/2021 [id number] Description:stent Procedures Procedure Name Priority Date/Time Associated Diagnosis Comments HOLD HLA SPECIMEN Routine 03/05/2024 1:4 0 PM DRYWALL SPRAYER HOLD HLA SPECIMEN Routine 01/27/2024 3:2 3 PM DRYWALL SPRAYER HEPATITIS C ANTIBODY Routine 01/14/2022 9:54 AM DRYWALL SPRAYER Pre-transplant evaluation for kidney transplant HEMOGLOBIN A1C Routine 01/14/2022 9:54 AM DRYWALL SPRAYER Pre-transplant evaluation for kidney transplant from Last 3 Months or Most Recently Relevant to Health Maintenance Results * HOLD HLA SPECIMEN (03/05/2024 1:40 PM DRYWALL SPRAYER) Only the most recent of2 resultswithin the time period is included. Hold HLA Specimen 03/12/2024 3:00 PM DRYWALL SPRAYER [facility] Comment:The Hold HLA specime n has been received into the lab and will be held for 5 years at 4 degrees. Blood BLOOD SPECIMEN / Unknown 03/05/2024 1:40 PM DRYWALL SPRAYER 03/12/2024 1:40 PM DRYWALL SPRAYER Alan Davenport MD LAB - BLOOD BANK ORD ERABLES [facility] ([facility]) [address] [place] [address] * (ABNORMAL) HEMOGLOBIN A1C (01/14/2022 9:54 AM DRYWALL SPRAYER) Hemoglobin A1c 8.7(H) <=5.6 % 01/14/2022 1:10 PM DRYWALL SPRAYER [facility] Estimated Average Glucose 203 mg/dL 01/14/2022 1:10 PM DRYWALL SPRAYER [facility] Comment: HbA1c Interpretation: Normal : < 5.7% Pre-diabetes: 5.7-6.4% Diabetes: Equal to or greater than 6.5% Test results diagnostic of diabetes should be repeated for confirmation. Treatment target values recommended by ADA and other clinical organizations should be used to evaluate metabolic control in patients. Reference: [place] Diabetes Association, Standards of Care in Diabetes -2020 In patients 70 years and older consider HbA1c target range of 7.0-7.5% (Reference: [employer] et al. JAMDA. 2012) The Sebia assay for the measurement of HbA1c is a National Glycohemoglobin Standardization Program (NGSP) certified method. Blood BLOOD SPECIMEN / Unknown Lab Venipuncture / Unknown 01/14/2022 9:54 AM DRYWALL SPRAYER 01/14/2022 11:00 AM DRYWALL SPRAYER Marbin Flores MD LAB - CHEMISTRY [address] [address], [facility] [phone] * HEPATITIS C ANTIBODY (01/14/2022 9:54 AM DRYWALL SPRAYER) Pathologist [facility] Hepatitis C Antibody Non-react sylvie Non-reac tive 01/14/2022 11:52 AM DRYWALL SPRAYER [facility] Comment:Hepatitis C Antibody screen indicates no serologic evidence of past or current infection with Hepatitis C Virus. Patients with unexplained liver disease who are immunocompromised or suspected of having acute Hepatitis C infection may benefit from Nucleic Acid Test (MARLON) for Hepatitis C Viral RNA to confirm Hepatitis C status. Blood BLOOD SPECIMEN / Unknown Lab Venipuncture / Unknown 01/14/2022 9:54 AM DRYWALL SPRAYER 01/14/2022 10:48 AM DRYWALL SPRAYER Marbin Flores MD LAB - CHEMISTRY [address] [address], [facility] [phone] from Last 3 Months or Most Recently Relevant to Health Maintenance Administered Medications Advance Directives * Full Code (Latest Code Status on File) Date Activated Date Inactivated Comments 08/04/2020 11:48 AM 08/08/2020 9:40 AM Care Teams Mine Captain Relationship Specialty Start Date End Date Jeff Strickland MD [address] [place] [address] PCP - General 03/05/18 [place] [address] [address] Orthopedic Surgery 03/28/17
--- OUTSIDE RECORDS SUMMARY | 2024-03-13 14:39 | XMS_ITS ---
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) Active confirmed Localized, primary osteoarthritis of the shoulder region (133620748) VITAL SIGNS Blood pressure systolic 112 mm Hg 03/03/19 25 Blood pressure diastolic 62 mm Hg 025 Heart Rate 59 /min 03/03/2024 Respiratory Rate 18 /min 03/03/2024 Height 5 ft 9 in in 03/03/2024 Weight 229 lbs 03/03/2024 BMI 33.81 kg/m2 03/03/2024 Encounters Encounter Location Date Provider Diagnosis [facility] [address] [place] [phone] 03/03/2024 Sergio Stynowick Pain in left knee M25.562 ; Primary osteoarthritis, unspecified shoulder M19.019 ; Other chest pain R07.89 ; Radiculopathy, lumbar region M54.16 ; Other intervertebral disc degeneration, lumbar region M51.36 ; 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 ; Spondylosis without myelopathy or radiculopathy, lumbar region M47.816 ; care home (current) use of anticoagulants Z79.01 ; Pain in right shoulder M25.511 and Pain in left shoulder M25.512 ASSESSMENTS Encounter Date Diagnosis Assessment Notes Treatment Notes Treatment Clinical Notes 03/03/2024 Pain in left knee (ICD-10 [...] chest pain (ICD-10 - R07.89) 03/03/2024 Radiculopathy, lumba r region (ICD-10 - M54.16) 03/03/2024 Other intervertebral disc degeneration, lumbar region (ICD-10 - M51.36) 03/03/2024 Osseous stenosis of neural canal of lumbar region (ICD-10 - M99.33) 03/03/2024 Spondylosis without myelopathy or radiculopathy, lumbar region (ICD-10 - M47.816) 03/03/2024 care home (current) use of anticoagulants (ICD-10 - Z79.01) 03/03/2024 Pain in right shoulder (ICD-10 - M25.511) 03/03/2024 Pain in left shoulde r (ICD-10 - M25.512) 03/03/2024 Other The above-named [...] Notes * Examination Category Sub-Category Detail Notes Examination/ Pre-Anesthesia Assessment General: The patient is alert and celsa ented X 3 in moderate distress secondary to [...] patient's typical axial low back pain. John's, [place]'s and [place]'s are positive bilaterally. There is [...] of Present Illness) Category Sub-Category Detail Notes Pain Management Radiographic Imaging MRI lumbar spine [...] foramen preserved. Assessment and Follow-up: Follow-up Plan doclana wendy:: Yes [facility] Quality 2020: MIPS Documented:: Compliant
--- OUTSIDE RECORDS SUMMARY | 2024-03-13 14:39 | XMS_ITS | Encounter Summary ---
Author Organization [facility] Address [facility] [facility] [place] [address] Care Team Providers Care Gear Generator Set Up Operator Name Role Phone Deandre Bojorquez MD Unavailable [phone] Jeff Strickland MD Primary Care Provider [phone] Encounter Details Date Type Department Care Team (Late st Contact Info) Description 03/12/[address] [facility] [address] [place] [phone] Alan Davenport MD [facility] [place] [address] Social History Tobacco Use Types Packs/Day Years [...] Info) Description 08/04/2024 11:[address] [facility] MRI [address] [place] [address] Thomas Mendoza MD [address] [facility] 2L [place] [address] 08/04/2024 1:30 PM CDT Office Visit [facility] - Urology [address] [place] [address] Thomas Mendoza MD [address] [facility] 2L [place] [address] documented as of this encounter Procedures Procedure Name Priority Date/Time Associated Diagnosis Comments HOLD HLA SPECIMEN Routine 03/05/2024 1:4 0 PM DIRECTOR OF OPERATIONS FOR THERAPY documented in this encounter Results * HOLD HLA SPECIMEN (03/05/2024 1:40 PM DIRECTOR OF OPERATIONS FOR THERAPY) Hold HLA Specimen 03/12/2024 3:00 PM DIRECTOR OF OPERATIONS FOR THERAPY [facility] ([facility]) Comment:The Hold HLA specime n has been received into the lab and will be held for 5 years at 4 degrees. Blood BLOOD SPECIMEN / Unknown 03/05/2024 1:40 PM DIRECTOR OF OPERATIONS FOR THERAPY 03/12/2024 1:40 PM DIRECTOR OF OPERATIONS FOR THERAPY Alan Davenport MD LAB - BLOOD BANK ORD ERABLES [facility] ([employer]) [address] documented in this encounter Visit Diagnoses Not on filedocumented in this encounter Care Teams Gear Generator Set Up Operator Relationship Specialty Start Date End Date Jeff Strickland MD [address] [place] [address] PCP - General 03/05/18 [place] [address] [facility] [address] [place] [address] Orthopedic Surgery 03/28/17 documented as of this encounter
--- OUTSIDE RECORDS SUMMARY | 2024-03-13 14:39 | XMS_ITS | Encounter Summary ---
Author Organization [facility] Address [facility] [place] [address] Care Team Providers Care Asbestos Siding Installer Name Role Phone Deandre Bojorquez MD Unavailable [phone] Jeff Strickland MD Primary Care Provider Encounter Details Date Type Department Care Team (Late st Contact Info) Description 05/29/2023 Lab Requisition [facility] [address] [place] [phone] Alan Davenport MD [facility] [place] [address] Social History Tobacco Use Types Packs/Day Years [...] Info) Description 08/04/2024 11:30 AM CDT Appointment [facility] MRI [address] [place] [address] Thomas Mendoza MD [address] [facility] 2L [place] [address] 08/04/2024 1:30 PM CDT Office Visit [facility] - Urology [address] [place] [address] Thomas Mendoza MD [address] [facility] 2L [place] [address] documented as of this encounter Procedures Procedure Name Priority Date/Time Associated Diagnosis Comments HOLD HLA SPECIMEN Routine 05/21/2023 9:2 4 AM CDT documented in this encounter Results * HOLD HLA SPECIMEN (05/21/2023 9:24 AM CDT) Hold HLA Specimen 05/29/2023 10:30 AM CDT [facility] ([employer]) Comment:The Hold HLA specime n has been received into the lab and will be held for 5 years at 4 degrees. Blood BLOOD SPECIMEN / Unknown 05/21/2023 9:24 AM CDT 05/29/2023 9:24 AM CDT Alan Davenport MD LAB - BLOOD BANK ORD ERABLES [facility] ([employer]) [address] [place], [place] [id number] [place] [address] documented in this encounter Visit Diagnoses Not on filedocumented in this encounter Care Teams Asbestos Siding Installer Relationship Specialty Start Date End Date Jeff Strickland MD [address] [place] [address] PCP - General 03/05/18 [place] [address] [address] Orthopedic Surgery 03/28/17 documented as of this encounter
--- OUTSIDE RECORDS SUMMARY | 2024-03-13 14:39 | XMS_ITS ---
Author Organization [facility] Address [address] [place] [address] [place] [address] Care Team Providers Care Box Repairer Name Role Phone DONNIE WOOD MD Primary Care Provider Robba Sergio Trujillo Unavailable [phone] REASON FOR VISIT BILAT SHOULDER JOINT INJECTION (NEED XRAY - BEING DONE AT [facility]) MEDICATIONS Medication SIG (Take, Route, Frequency, [...] Location Date Provider Diagnosis [facility] [address] [place] [id number] 03/08/2024 Sergio Rivera Primary osteoarthritis, unspecified shoulder M19.019 ASSESSMENTS Encounter Date Diagnosis Assessment Notes Treatment Notes Treatment Clinical Notes 03/08/2024 Primary osteoarthritis, unspecified shoulder (ICD-10 [...] discharged home in good condition with a m48/m60 tank driver. X-ray time: 6 seconds Progress Notes [...] patient's typical axial low back pain. John's, [place]'s and Gaenslen's are positive bilaterally. There is [...] Plan documen wendy:: Yes MIPS Quality 2020: [facility] Documented:: Compliant
--- OUTSIDE RECORDS SUMMARY | 2024-03-13 14:40 | XMS_ITS ---
Author Organization [facility] Address [address] [facility] [place] [address] Care Team Providers Care Mobile Phone Salesperson Name Role Phone DONNIE WOOD MD Primary Care Provider Lance Sergio Trujillo Unavailable [phone] ALLERGIES No Known Allergies REASON FOR VISIT [...] Question Answer Notes Are you a nonsmoker VITAL SIGNS Blood pressure systolic 121 mm Hg 02/03/20 24 Blood pressure diastolic 70 mm Hg 024 Heart Rate 64 /min 02/03/2024 Respiratory Rate 18 /min 02/03/2024 Height 5 ft 9 in in 02/03/2024 Weight 229 lbs 02/03/2024 BMI 33.81 kg/m2 02/03/2024 Encounters Encounter Location Date Provider Diagnosis [facility] [address] [place] [id number] 02/03/2024 Sergio Nicole Other chest pain R07.89 ; Pain in left knee M25.562 ; Radiculopathy, lumbar region M54.16 ; Other intervertebral disc degeneration, lumbar region M51.36 ; 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 John's, [place]'s and Gaenslen's are positive bilaterally. There is [...]
--- OUTSIDE RECORDS SUMMARY | 2024-03-13 14:40 | XMS_ITS | Continuity of Care Document ---
Author Organization [facility] Address [address] [place] [address] Phone Care Team Providers Care Sand Molder Name Role Phone Olu Payan Unavailable Unavailable [...] Diagnoses Date Provider Providers Copied on Encounter [facility], [place], [place], [id number], tel:[phone] [place] No Information 4 Gladis Olu. [id number] [place] [address], [address], [place], [place], [facility], . tel: [phone] [address] [place] [address], [place], [place], [id number], tel:[phone] [place] No Information 4 Genoveva Mcdonald. . Referring Provider: Jeff Strickland [address] [place] [address] [address], [place], [place], [facility]. tel:[phone] [place] [address], [place], [place], [id number], tel:[phone] [place] No Information 4 Gladis Olu. [address] [place] [address], [address], [place], [place], [facility], . tel: [phone] Referring Provider: Yanira Chin [facility] [address], [place], [facility]. tel:[phone] [place] [address], [place], [place], [id number], tel:[phone] [place] No Information 4 Gladis Raines. [address] [place] [address], [address], [place], [place], [facility], . tel: [phone] Referring Provider: Yanira Chin [facility] [address], [place], [address]. tel:[phone], [id number], tel:[phone] [place] No Information 4 Jacinto Fairchild. . Referring Provider: Yanira Chin [facility] [address], [place], [address]. tel:[phone], [place], [place], [id number], [place] tel:[phone] [place] No Information 4 Jacinto Fairchild. . Referring Provider: Jeff Strickland [address] [place] [address] [address], [place], [place], [facility]. tel:[phone], [id number], tel:[phone] [place] No Information 4 Genoveva Mcdonald. . Referring Provider: Jeff Strickland [address] [place] [address] [address], [place], [facility]. tel:[phone], [id number], tel:[phone] [place] No Information 4 Gladis Raines. [address], [address], [place], [facility], . tel: [phone] Referring Provider: Jeff Strickland [address] [place] [address] [address], [place], [facility]. tel:[phone], [id number], tel:[phone] [place] No Information 0 4 Genoveva Mcdonald. . Referring Provider: Jeff Strickland [address] [place] [address] [address], [place], [facility]. tel:[phone], [place], [id number], [place] tel:[phone] [place] No Information 0 4 Gladis Raines. [address], [address], [place], [place], [facility], . tel: [phone] Referring Provider: Jeff Strickland [address] [place] [address] [address], [place], [place], [facility]. tel:[phone] Family History Family Member Type Diagnosis Age At Onset No Information Payers Payer name Insurance type Covered constitution party ID Diego suarez(ernesto Hadley [id number] Social History Type Description Quantity Date Captured [...]
--- OUTSIDE RECORDS SUMMARY | 2024-03-13 14:42 | XMS_ITS | Continuity of Care Document ---
Author Organization [facility] Address [address] [place] [address] Phone Care Team Providers Care Dumper Name Role Phone Kee Rodriguez Unavailable Unavailable Procedures Procedure Date Office/outpatient Visit, Est Eye Exam Established Pt Advance Directives Directive Yes / No Effective Date File Name No Information Encounters Encounter Description Practice Location Reason(s) For Visit Diagnoses Date Provider Providers Copied on Encounter Office/outpat ient Visit, Est [facility], [address] [place] [address] [address], [place], [place], [id number], tel:[phone] [facility] No Information Mar-0 2-201 0 Krishnasamy Kee. [address] [facility] [place] [address], [place], [place], [facility], [place]. tel:[phone] [facility], [address] [place] [address] [address], [place], [place], [id number], tel:[phone] [facility] No Information Nhan-3 0-200 7 David OD Freddy. [address], [place], [place], [facility], [place]. tel:[phone] Family History Family Member Type Diagnosis Age [...]
--- OUTSIDE RECORDS SUMMARY | 2024-03-13 14:42 | XMS_ITS ---
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 Ordering Clinician Indication Dosage Frequency Signature (SIG) Comments Components Metoclopram yohannes HCl 03-10 17:58: 44 Yes Number of Repeats Allowed: Frequency: Once a day, at bedtime Lansoprazol e 03-10 17:58: 03 Yes Number of Repeats Allowed: Frequency: Two times a day Venofer 03-08 14:38: 53 Yes [id number] Number of Repeats Allowed: Frequency: Every monthDoses Ordered: Maintenanc e Dose 100 Milligram Route: Intravenou s Mircera 2023-02 2-12 16:33: 53 Yes [id number] Number of Repeats Allowed: Frequency: YASIR dosing, every three to four weeks Furosemide 2023-02 0-07 18:56: 09 Yes Number of Repeats Allowed: Frequency: Two times a day Gabapentin 2023-02 0- 20:47: 52 Yes Number of Repeats Allowed: Frequency: Three times a day Influenza, high-dose, quadrivalen t, PF 11-04 15:34: 48 Yes [id number] Number of Repeats Allowed: Frequency: One time only dilTIAZem HCl ER 09-02 13:51: 05 Yes Number of Repeats Allowed: Frequency: Two times a day hydrALAZINE HCl 09-02 13:50: 30 Yes Number of Repeats Allowed: Frequency: Three times a day Lisinopril 05-07 17:53: 50 Yes Number of Repeats Allowed: Frequency: Two times a day Atorvastati n Calcium 04-09 15:51: 39 Yes Number of Repeats Allowed: Frequency: One time a day Sertraline HCl 03-04 19:52: 59 Yes Number of Repeats Allowed: Frequency: One time a day Belsomra 03-04 19:51: 47 Yes Number of Repeats Allowed: Frequency: Once a day, at bedtime traMADol HCl 2022-02 13:48: 25 Yes Number of Repeats Allowed: Frequency: As needed Aspercreme Lidocaine 2022-02 13:46: 12 Yes Number of Repeats Allowed: Frequency: One time a day Finasteride 2022-02 13:45: 02 Yes Number of Repeats Allowed: Frequency: Once a day, at bedtime Mounjaro 09-25 16:29: 05 Yes Number of Repeats Allowed: Frequency: One time a week Basaglar KwikPen 09-25 16:28: 08 Yes Number of Repeats Allowed: Frequency: Two times a day Tamsulosin HCl 09-25 16:27: 23 Yes Number of Repeats Allowed: Frequency: Once a day, at bedtime Levothyroxi ne Sodium 09-25 16:25: 40 Yes Number of Repeats Allowed: Frequency: One time a day NovoLOG 02-19 20:38: 09 Yes Number of Repeats Allowed: Frequency: Three times a day NovoLOG 02-19 20:37: 19 Yes Number of Repeats Allowed: Frequency: One time a day Probiotic 02-19 20:36: 28 Yes Number of Repeats Allowed: Frequency: One time a day Pantoprazol e Sodium 02-19 20:35: 26 Yes Number of Repeats Allowed: Frequency: One time a day LORazepam 02-19 20:34: 30 Yes Number of Repeats Allowed: Frequency: Once a day, at bedtime Pneumovax 23 2021-02 19:48: 00 Yes [id number] Number of Repeats Allowed: Frequency: One time only Vitamin D3 2021-02 05:00: 00 Yes Number of Repeats Allowed: Frequency: One time a day Carvedilol 8-29 05:00: 00 Yes Number of Repeats Allowed: Frequency: Two times a day PreserVisio n AREDS 2 3-23 05:00: 00 Yes Number of Repeats Allowed: Frequency: Two times a day Sami Aspirin EC Low Dose 2019-02 06:00: 00 Yes Number of Repeats Allowed: Frequency: One time a day Problems This patient has no known problems. Procedures Procedure Date / Time Performed Performing Clinician Emy ce Details PD Catheter 2019-12-28 06:00:00 Access Site Lower Quadrant (Left ) Access Use Start Date 2020-01-17 06:00:0 0 DIALYSIS TREATMENT INFORMATION Conventional Hemodialysis Date Type Treatment Start Date Treatment End Date Pre-Treatment Vitals Post-Treatment Vitals Weight Gain BFR DFR Actual UF Dialysis Access March 12, 2024 CCPD March 11, 2024 CCPD March 10, 2024 CCPD BP Sitting (Pre-Dialysis) 99/53 mmHg BP Standing (Pre-Dialysis) 84/58 mmHg Sitting Heart Rate Pre-Dialysis 56 BPM Standing Heart Rate Pre-Dialysis 56 BPM Temperature Pre-Dialysis 97.6 degF Weight Pre-Dialysis 120 kg March 10, 2024 CCPD March 09, 2024 CCPD March 08, 2024 CCPD March 07, 2024 CCPD March 06, 2024 CCPD March 05, 2024 CCPD BP Sitting (Pre-Dialysis) 97/53 mmHg BP Standing (Pre-Dialysis) 83/45 mmHg Sitting Heart Rate Pre-Dialysis 54 BPM Standing Heart Rate Pre-Dialysis 60 BPM Temperature Pre-Dialysis 96.5 degF Weight Pre-Dialysis 120 kg March 05, 2024 CCPD March 04, 2024 CCPD March 03, 2024 CCPD March 02, 2024 CCPD March 01, 2024 CCPD February 29, 2024 CCPD February 28, 2024 CCPD February 27, 2024 CCPD February 26, 2024 CCPD February 25, 2024 CCPD February 24, 2024 CCPD February 23, 2024 CCPD February 22, 2024 CCPD February 21, 2024 CCPD February 20, 2024 CCPD February 19, 2024 CCPD February 18, 2024 CCPD February 17, 2024 CCPD February 16, 2024 CCPD February 15, 2024 CCPD February 14, 2024 CCPD February 13, 2024 CCPD February 12, 2024 CCPD February 11, 2024 CCPD February 10, 2024 CCPD February 09, 2024 CCPD February 08, 2024 CCPD February 07, 2024 CCPD February 06, 2024 CCPD February 05, 2024 CCPD February 04, 2024 CCPD February 03, 2024 CCPD BP Sitting (Pre-Dialysis) 138/66 mmHg BP Standing (Pre-Dialysis) 122/81 mmHg Sitting Heart Rate Pre-Dialysis 60 BPM Standing Heart Rate Pre-Dialysis 62 BPM Temperature Pre-Dialysis 98.4 degF Weight Pre-Dialysis 122.7 kg February 03, 2024 CCPD February 02, 2024 CCPD February 01, 2024 CCPD January 31, 2024 CCPD January 30, 2024 CCPD January 29, 2024 CCPD January 28, 2024 CCPD January 27, 2024 CCPD BP Sitting (Pre-Dialysis) 155/78 mmHg BP Standing (Pre-Dialysis) 141/67 mmHg Sitting Heart Rate Pre-Dialysis 60 BPM Standing Heart Rate Pre-Dialysis 59 BPM Temperature Pre-Dialysis 94.7 degF Weight Pre-Dialysis 122 kg January 27, 2024 CCPD January 26, 2024 CCPD January 25, 2024 CCPD January 24, 2024 CCPD January 23, 2024 CCPD January 22, 2024 CCPD January 21, 2024 CCPD 2024 CCPD January 19, 2024 CCPD January 18, 2024 CCPD January 17, 2024 CCPD January 16, 2024 CCPD January 15, 2024 CCPD January 14, 2024 CCPD January 13, 2024 CCPD January 12, 2024 CCPD January 11, 2024 CCPD January 10, 2024 CCPD January 09, 2024 CCPD January 08, 2024 CCPD January 07, 2024 CCPD January 06, 2024 CCPD BP Sitting (Pre-Dialysis) 128/62 mmHg BP Standing (Pre-Dialysis) 140/63 mmHg Sitting Heart Rate Pre-Dialysis 65 BPM Standing Heart Rate Pre-Dialysis 63 BPM Temperature Pre-Dialysis 97 degF Weight Pre-Dialysis 118.1 kg January 06, 2024 CCPD January 05, 2024 CCPD January 04, 2024 CCPD January 03, 2024 CCPD January 02, 2024 CCPD January 01, 2024 CCPD December 31, 2023 CCPD December 30, 2023 CCPD BP Sitting (Pre-Dialysis) 107/65 mmHg Sitting Heart Rate Pre-Dialysis 63 BPM Temperature Pre-Dialysis 96.7 degF Weight Pre-Dialysis 118.1 kg December 30, 2023 CCPD December 29, 2023 CCPD December 28, 2023 CCPD December 27, 2023 CCPD December 26, 2023 CCPD December 25, 2023 CCPD December 24, 2023 CCPD December 23, 2023 CCPD December 22, 2023 CCPD December 21, 2023 CCPD December 20, 2023 CCPD December 19, 2023 CCPD December 18, 2023 CCPD December 17, 2023 CCPD December 16, 2023 CCPD December 15, 2023 CCPD December 14, 2023 CCPD December 13, 2023 CCPD December 12, 2023 CCPD December 11, 2023 CCPD December 10, 2023 CCPD December 09, 2023 CCP BP Sitting (Pre-Dialysis) 121/68 mmHg BP Standing (Pre-Dialysis) 110/52 mmHg Sitting Heart Rate Pre-Dialysis 63 BPM Standing Heart Rate Pre-Dialysis 64 BPM Temperature Pre-Dialysis 96.9 degF Weight Pre-Dialysis 117.2 kg December 09, 2023 CCPD December 08, 2023 CCPD December 07, 2023 CCPD December 06, 2023 CCPD December 05, 2023 CCPD December 04, 2023 CCPD December 03, 2023 CCPD December 02, 2023 CCPD BP Sitting (Pre-Dialysis) 111/60 mmHg BP Standing (Pre-Dialysis) 120/55 mmHg Sitting Heart Rate Pre-Dialysis 61 BPM Standing Heart Rate Pre-Dialysis 63 BPM Temperature Pre-Dialysis 97.8 degF Weight Pre-Dialysis 116 kg December 02, 2023 CCPD December 01, 2023 CCPD November 30, 2023 CCPD November 29, 2023 CCPD November 28, 2023 CCPD November 27, 2023 CCPD November 26, 2023 CCPD November 25, 2023 CCPD November 24, 2023 CCPD November 23, 2023 CCPD November 22, 2023 CCPD November 21, 2023 CCPD November 20, 2023 CCPD November 19, 2023 CCPD November 18, 2023 CCPD BP Sitting (Pre-Dialysis) 120/59 mmHg BP Standing (Pre-Dialysis) 106/52 mmHg Sitting Heart Rate Pre-Dialysis 67 BPM Standing Heart Rate Pre-Dialysis 62 BPM Temperature Pre-Dialysis 97.9 degF Weight Pre-Dialysis 120.9 kg November 18, 2023 CCPD November 17, 2023 CCPD November 16, 2023 CCPD November 15, 2023 CCPD November 14, 2023 CCPD November 13, 2023 CCPD November 12, 2023 CCPD November 11, 2023 CCPD November 10, 2023 CCPD November 09, 2023 CCPD November 08, 2023 CCPD November 07, 2023 CCPD November 06, 2023 CCPD November 05, 2023 CCPD November 04, 2023 CCPD BP Sitting (Pre-Dialysis) 149/52 mmH g BP Standing (Pre-Dialysis) 147/58 mmHg Sitting Heart Rate Pre-Dialysis 62 BPM Standing Heart Rate Pre-Dialysis 64 BPM Temperature Pre-Dialysis 98.1 degF Weight Pre-Dialysis 114 kg November 04, 2023 CCPD November 03, 2023 CCPD November 02, 2023 CCPD November 01, 2023 CCPD October 31, 2023 CCPD October 30, 2023 CCPD October 29, 2023 CCPD October 28, 2023 CCPD October 27, 2023 CCPD October 26, 2023 CCPD October 25, 2023 CCPD October 24, 2023 CCPD October 23, 2023 CCPD October 22, 2023 CCP BP Sitting (Pre-Dialysis) 120/64 mmH g BP Standing (Pre-Dialysis) 108/57 mmHg Sitting Heart Rate Pre-Dialysis 61 BPM Standing Heart Rate Pre-Dialysis 62 BPM Temperature Pre-Dialysis 98 degF Weight Pre-Dialysis 111.5 kg October 22, 2023 CCPD October 21, 2023 CCPD October 20, 2023 CCPD October 19, 2023 CCPD October 18, 2023 CCPD October 17, 2023 CCPD October 16, 2023 CCPD October 15, 2023 CCPD October 14, 2023 CCPD October 13, 2023 CCPD October 12, 2023 CCPD October 11, 2023 CCPD October 10, 2023 CCPD October 09, 2023 CCPD October 08, 2023 CCPD October 07, 2023 CCPD BP Sitting (Pre-Dialysis) 129/78 mmHg BP Standing (Pre-Dialysis) 127/62 mmHg Sitting Heart Rate Pre-Dialysis 67 BPM Standing Heart Rate Pre-Dialysis 70 BPM Temperature Pre-Dialysis 97.9 degF Weight Pre-Dialysis 109 kg October 07, 2023 CCPD October 06, 2023 CCPD October 05, 2023 CCPD October 04, 2023 CCPD October 03, 2023 CCPD October 02, 2023 CCPD October 01, 2023 CCPD September 30, 2023 CCPD September 29, 2023 CCPD September 28, 2023 CCPD September 27, 2023 CCPD September 26, 2023 CCPD September 25, 2023 CCPD September 24, 2023 CCP BP Sitting (Pre-Dialysis) 164/90 mmHg Sitting Heart Rate Pre-Dialysis 72 BPM Temperature Pre-Dialysis 97 degF Weight Pre-Dialysis 109 kg September 24, 2023 CCPD September 23, 2023 CCPD September 22, 2023 CCPD September 21, 2023 CCPD September 20, 2023 CCPD September 19, 2023 CCPD September 18, 2023 CCPD September 17, 2023 CCPD September 16, 2023 CCPD September 15, 2023 CCPD September 14, 2023 CCPD September 13, 2023 CCPD September 12, 2023 CCPD September 11, 2023 CCPD September 10, 2023 CCPD September 09, 2023 CCPD September 08, 2023 CCPD September 07, 2023 CCPD September 06, 2023 CCPD September 05, 2023 CCPD September 04, 2023 CCPD September 02, 2023 CCPD September 02, 2023 CCPD September 01, 2023 CCPD August 31, 2023 CCPD August 30, 2023 CCPD August 29, 2023 CCPD August 28, 2023 CCPD August 27, 2023 CCPD August 26, 2023 CCPD August 25, 2023 CCPD BP Sitting (Pre-Dialysis) 171/82 mmHg BP Standing (Pre-Dialysis) 148/68 mmHg Sitting Heart Rate Pre-Dialysis 44 BPM Standing Heart Rate Pre-Dialysis 46 BPM Temperature Pre-Dialysis 96.5 degF Weight Pre-Dialysis 106.8 kg August 25, 2023 CCPD August 24, 2023 CCPD August 23, 2023 CCPD August 22, 2023 CCPD August 21, 2023 CCPD August 20, 2023 CCPD August 19, 2023 CCPD August 18, 2023 CCPD August 17, 2023 CCPD August 16, 2023 CCPD August 15, 2023 CCPD August 14, 2023 CCPD August 13, 2023 CCPD August 12, 2023 CCPD August 11, 2023 CCPD August 10, 2023 CCPD August 09, 2023 CCPD August 08, 2023 CCPD August 07, 2023 CCPD August 06, 2023 CCPD August 05, 2023 CCPD August 04, 2023 CCPD August 03, 2023 CCPD August 02, 2023 CCPD August 01, 2023 CCPD July 31, 2023 CCPD July 31, 2023 CCPD July 30, 2023 CCPD July 29, 2023 CCPD July 28, 2023 CCPD July 27, 2023 CCPD July 26, 2023 CCPD July 25, 2023 CCPD July 24, 2023 CCPD July 23, 2023 CCP BP Sitting (Pre-Dialysis) 135/71 mmHg BP Standing (Pre-Dialysis) 92/57 mmHg Sitting Heart Rate Pre-Dialysis 60 BPM Standing Heart Rate Pre-Dialysis 69 BPM Temperature Pre-Dialysis 97.3 degF Weight Pre-Dialysis 109.6 kg July 23, 2023 CCPD July 22, 2023 CCPD July 21, 2023 CCPD July 20, 2023 CCPD July 19, 2023 CCPD July 18, 2023 CCPD July 17, 2023 CCPD July 16, 2023 CCPD July 15, 2023 CCPD July 14, 2023 CCPD July 13, 2023 CCPD July 12, 2023 CCPD July 11, 2023 CCPD July 10, 2023 CCP BP Sitting (Pre-Dialysis) 151/69 mmHg BP Standing (Pre-Dialysis) 112/57 mmHg Sitting Heart Rate Pre-Dialysis 60 BPM Standing Heart Rate Pre-Dialysis 64 BPM Temperature Pre-Dialysis 96.4 degF Weight Pre-Dialysis 109.6 kg July 10, 2023 CCPD July 09, 2023 CCPD July 08, 2023 CCPD July 07, 2023 CCPD July 06, 2023 CCPD July 05, 2023 CCPD July 04, 2023 CCPD July 03, 2023 CCPD July 02, 2023 CCPD July 01, 2023 CCPD June 30, 2023 CCPD June 29, 2023 CCPD June 28, 2023 CCPD June 27, 2023 CCPD BP Sitting (Pre-Dialysis) 132/69 mmHg BP Standing (Pre-Dialysis) 117/60 mmHg Sitting Heart Rate Pre-Dialysis 59 BPM Standing Heart Rate Pre-Dialysis 61 BPM Temperature Pre-Dialysis 97.2 degF Weight Pre-Dialysis 106 kg June 27, 2023 CCPD June 26, 2023 CCPD June 25, 2023 CCPD June 24, 2023 CCPD June 23, 2023 CCPD June 22, 2023 CCPD June 21, 2023 CCPD June 20, 2023 CCPD June 19, 2023 CCPD June 18, 2023 CCPD June 17, 2023 CCPD June 16, 2023 CCPD June 15, 2023 CCPD June 14, 2023 CCPD June 13, 2023 CCPD June 12, 2023 CCPD June 11, 2023 CCPD June 10, 2023 CCPD June 09, 2023 CCPD June 08, 2023 CCPD June 07, 2023 CCPD June 06, 2023 CCPD June 05, 2023 CCPD June 04, 2023 CCPD June 03, 2023 CCP BP Sitting (Pre-Dialysis) 187/83 mmHg BP Standing (Pre-Dialysis) 161/81 mmHg Sitting Heart Rate Pre-Dialysis 69 BPM Standing Heart Rate Pre-Dialysis 72 BPM Temperature Pre-Dialysis 97.5 degF Weight Pre-Dialysis 106.3 kg June 03, 2023 CCPD June 02, 2023 CCPD June 01, 2023 CCPD May 31, 2023 CCPD May 30, 2023 CCPD May 29, 2023 CCPD May 28, 2023 CCPD May 27, 2023 CCPD May 26, 2023 CCPD May 25, 2023 CCPD May 24, 2023 CCPD May 23, 2023 CCPD May 22, 2023 CCPD May 21, 2023 CCPD BP Sitting (Pre-Dialysis) 174/89 mmHg BP Standing (Pre-Dialysis) 152/70 mmHg Sitting Heart Rate Pre-Dialysis 60 BPM Standing Heart Rate Pre-Dialysis 66 BPM Temperature Pre-Dialysis 95.5 degF Weight Pre-Dialysis 106.3 kg May 21, 2023 CCPD May 20, 2023 CCPD May 19, 2023 CCPD May 18, 2023 CCPD May 17, 2023 CCPD May 16, 2023 CCPD May 15, 2023 CCPD May 14, 2023 CCPD May 13, 2023 CCPD May 12, 2023 CCPD May 11, 2023 CCPD May 10, 2023 CCPD May 09, 2023 CCPD May 08, 2023 CCPD May 07, 2023 CCPD May 06, 2023 CCPD BP Sitting (Pre-Dialysis) 177/86 mmHg BP Standing (Pre-Dialysis) 125/66 mmHg Sitting Heart Rate Pre-Dialysis 59 BPM Standing Heart Rate Pre-Dialysis 65 BPM Temperature Pre-Dialysis 97.1 degF Weight Pre-Dialysis 106.8 kg May 06, 2023 CCPD May 05, 2023 CCPD May 04, 2023 CCPD May 03, 2023 CCPD May 02, 2023 CCPD May 01, 2023 CCPD April 30, 2023 CCPD April 29, 2023 CCPD April 28, 2023 CCPD April 27, 2023 CCPD April 26, 2023 CCPD April 25, 2023 CCPD April 24, 2023 CCPD April 23, 2023 CCP BP Sitting (Pre-Dialysis) 188/87 mmHg BP Standing (Pre-Dialysis) 152/82 mmHg Sitting Heart Rate Pre-Dialysis 89 BPM Standing Heart Rate Pre-Dialysis 73 BPM Temperature Pre-Dialysis 97.3 degF Weight Pre-Dialysis 104.5 kg April 23, 2023 CCPD April 22, 2023 CCPD April 21, 2023 CCPD April 20, 2023 CCPD April 19, 2023 CCPD April 18, 2023 CCPD April 17, 2023 CCPD April 16, 2023 CCPD April 15, 2023 CCPD April 14, 2023 CCPD April 13, 2023 CCPD April 12, 2023 CCPD April 11, 2023 CCPD April 10, 2023 CCPD April 09, 2023 CCPD April 08, 2023 CCPD BP Sitting (Pre-Dialysis) 167/71 mmHg Sitting Heart Rate Pre-Dialysis 89 BPM Temperature Pre-Dialysis 96.7 degF Weight Pre-Dialysis 104.5 kg April 08, 2023 CCPD April 07, 2023 CCPD April 06, 2023 CCPD April 05, 2023 CCPD April 04, 2023 CCPD April 03, 2023 CCPD April 02, 2023 CCPD BP Sitting (Pre-Dialysis) 116/62 mmHg Sitting Heart Rate Pre-Dialysis 62 BPM Temperature Pre-Dialysis 97.2 degF Weight Pre-Dialysis 104.5 kg April 02, 2023 CCPD April 01, 2023 CCPD March 31, 2023 CCPD March 30, 2023 CCPD March 29, 2023 CCPD March 24, 2023 CCPD March 23, 2023 CCPD March 22, 2023 CCPD March 11, 2023 CCPD March 10, 2023 CCPD March 09, 2023 CCPD March 08, 2023 CCPD March 07, 2023 CCPD March 06, 2023 CCPD March 05, 2023 CCPD March 04, 2023 CCPD BP Sitting (Pre-Dialysis) 168/77 mmHg BP Standing (Pre-Dialysis) 130/69 mmHg Sitting Heart Rate Pre-Dialysis 72 BPM Standing Heart Rate Pre-Dialysis 63 BPM Temperature Pre-Dialysis 97.9 degF Weight Pre-Dialysis 108.6 kg March 04, 2023 CCPD March 03, 2023 CCPD March 02, 2023 CCPD March 01, 2023 CCPD February 28, 2023 CCPD February 27, 2023 CCPD February 26, 2023 CCPD February 25, 2023 CCPD February 24, 2023 CCPD BP Sitting (Pre-Dialysis) 148/77 mmHg BP Standing (Pre-Dialysis) 104/62 mmHg Sitting Heart Rate Pre-Dialysis 59 BPM Standing Heart Rate Pre-Dialysis 65 BPM Temperature Pre-Dialysis 96.8 degF Weight Pre-Dialysis 109 kg February 24, 2023 CCPD February 23, 2023 CCPD February 22, 2023 CCPD February 21, 2023 CCPD February 20, 2023 CCPD February 19, 2023 CCPD February 18, 2023 CCPD February 17, 2023 CCPD February 16, 2023 CCPD February 15, 2023 CCPD February 14, 2023 CCPD February 13, 2023 CCPD February 12, 2023 CCPD February 11, 2023 CCPD February 10, 2023 CCPD February 09, 2023 CCPD February 08, 2023 CCPD February 07, 2023 CCPD February 06, 2023 CCPD February 06, 2023 CCPD February 05, 2023 CCPD February 04, 2023 CCPD February 03, 2023 CCPD February 02, 2023 CCPD February 01, 2023 CCPD January 31, 2023 CCPD January 30, 2023 CCPD January 29, 2023 CCPD January 28, 2023 CCPD January 27, 2023 CCPD January 26, 2023 CCPD January 25, 2023 CCPD January 24, 2023 CCPD January 23, 2023 CCPD January 22, 2023 CCPD January 21, 2023 CCPD 2023 CCPD BP Sitting (Pre-Dialysis) 140/73 mmHg BP Standing (Pre-Dialysis) 116/62 mmHg Sitting Heart Rate Pre-Dialysis 56 BPM Standing Heart Rate Pre-Dialysis 59 BPM Temperature Pre-Dialysis 97.9 degF Weight Pre-Dialysis 108.6 kg 2023 CCPD January 19, 2023 CCPD January 18, 2023 CCPD January 17, 2023 CCPD January 16, 2023 CCPD January 15, 2023 CCPD January 14, 2023 CCPD January 13, 2023 CCPD January 12, 2023 CCPD January 11, 2023 CCPD January 10, 2023 CCPD January 09, 2023 CCPD January 08, 2023 CCPD January 07, 2023 CCPD January 06, 2023 CCPD January 05, 2023 CCPD January 04, 2023 CCPD January 03, 2023 CCPD January 02, 2023 CCPD January 01, 2023 CCPD December 31, 2022 CCP BP Sitting (Pre-Dialysis) 140/66 mmHg BP Standing (Pre-Dialysis) 115/56 mmHg Sitting Heart Rate Pre-Dialysis 54 BPM Standing Heart Rate Pre-Dialysis 55 BPM Temperature Pre-Dialysis 97.2 degF Weight Pre-Dialysis 108.1 kg December 31, 2022 CCPD December 30, 2022 CCPD December 29, 2022 CCPD December 28, 2022 CCPD December 27, 2022 CCPD December 26, 2022 CCPD BP Sitting (Pre-Dialysis) 117/69 mmHg BP Standing (Pre-Dialysis) 117/69 mmHg Sitting Heart Rate Pre-Dialysis 82 BPM Standing Heart Rate Pre-Dialysis 82 BPM Temperature Pre-Dialysis 98 degF Weight Pre-Dialysis 108.6 kg December 26, 2022 CCPD December 25, 2022 CCPD December 24, 2022 CCPD December 23, 2022 CCPD December 22, 2022 CCPD December 20, 2022 CCPD December 19, 2022 CCPD December 18, 2022 CCPD December 17, 2022 CCPD December 16, 2022 CCPD December 15, 2022 CCPD December 14, 2022 CCPD December 13, 2022 CCPD December 12, 2022 CCPD December 11, 2022 CCPD December 10, 2022 CCPD December 09, 2022 CCPD December 08, 2022 CCPD December 07, 2022 CCPD December 06, 2022 CCPD December 05, 2022 CCPD December 05, 2022 CCPD December 04, 2022 CCPD December 03, 2022 CCPD November 29, 2022 CCPD November 28, 2022 CCPD November 27, 2022 CCPD November 26, 2022 CCPD November 25, 2022 CCPD November 24, 2022 CCPD November 23, 2022 CCPD November 22, 2022 CCPD BP Sitting (Pre-Dialysis) 147/70 mmHg BP Standing (Pre-Dialysis) 145/75 mmHg Sitting Heart Rate Pre-Dialysis 59 BPM Standing Heart Rate Pre-Dialysis 59 BPM Temperature Pre-Dialysis 98.1 degF Weight Pre-Dialysis 110.5 kg November 22, 2022 CCPD November 21, 2022 CCPD November 20, 2022 CCPD November 19, 2022 CCPD November 18, 2022 CCPD November 17, 2022 CCPD November 16, 2022 CCPD November 15, 2022 CCPD November 14, 2022 CCPD November 13, 2022 CCPD November 12, 2022 CCPD November 11, 2022 CCPD November 10, 2022 CCPD November 09, 2022 CCPD November 08, 2022 CCPD November 07, 2022 CCPD November 06, 2022 CCPD November 05, 2022 CCPD BP Sitting (Pre-Dialysis) 146/65 mmH g BP Standing (Pre-Dialysis) 89/50 mmHg Sitting Heart Rate Pre-Dialysis 58 BPM Standing Heart Rate Pre-Dialysis 64 BPM Temperature Pre-Dialysis 98.4 degF Weight Pre-Dialysis 108.6 kg November 05, 2022 CCPD November 04, 2022 CCPD November 03, 2022 CCPD November 02, 2022 CCPD November 01, 2022 CCPD October 31, 2022 CCPD October 30, 2022 CCPD October 29, 2022 CCPD October 28, 2022 CCPD BP Sitting (Pre-Dialysis) 152/72 mmH g BP Standing (Pre-Dialysis) 120/73 mmHg Sitting Heart Rate Pre-Dialysis 64 BPM Standing Heart Rate Pre-Dialysis 64 BPM Temperature Pre-Dialysis 97.9 degF Weight Pre-Dialysis 108.6 kg October 28, 2022 CCPD October 27, 2022 CCPD October 26, 2022 CCPD October 25, 2022 CCPD October 24, 2022 CCPD October 23, 2022 CCPD October 22, 2022 CCPD October 21, 2022 CCPD October 20, 2022 CCPD October 19, 2022 CCPD October 18, 2022 CCPD October 17, 2022 CCPD October 16, 2022 CCPD October 15, 2022 CCPD October 14, 2022 CCPD October 13, 2022 CCPD October 12, 2022 CCPD October 11, 2022 CCPD October 10, 2022 CCPD October 09, 2022 CCPD October 08, 2022 CCPD October 07, 2022 CCPD October 06, 2022 CCPD October 05, 2022 CCPD October 04, 2022 CCPD October 03, 2022 CCPD October 02, 2022 CCPD October 01, 2022 CCP BP Sitting (Pre-Dialysis) 138/73 mmHg BP Standing (Pre-Dialysis) 99/62 mmHg Sitting Heart Rate Pre-Dialysis 63 BPM Standing Heart Rate Pre-Dialysis 71 BPM Temperature Pre-Dialysis 97.7 degF Weight Pre-Dialysis 108.6 kg October 01, 2022 CCPD September 30, 2022 CCPD September 29, 2022 CCPD September 28, 2022 CCPD September 27, 2022 CCPD September 26, 2022 CCPD September 25, 2022 CCPD BP Sitting (Pre-Dialysis) 160/86 mmHg BP Standing (Pre-Dialysis) 114/63 mmHg Sitting Heart Rate Pre-Dialysis 70 BPM Standing Heart Rate Pre-Dialysis 84 BPM Temperature Pre-Dialysis 97.6 degF Weight Pre-Dialysis 108.6 kg September 25, 2022 CCPD September 24, 2022 CCPD September 23, 2022 CCPD September 22, 2022 CCPD September 21, 2022 CCPD September 20, 2022 CCPD September 19, 2022 CCPD September 18, 2022 CCPD September 17, 2022 CCPD September 16, 2022 CCPD September 15, 2022 CCPD September 14, 2022 CCPD September 13, 2022 CCPD September 12, 2022 CCPD September 11, 2022 CCPD September 10, 2022 CCPD BP Sitting (Pre-Dialysis) 149/86 mmHg BP Standing (Pre-Dialysis) 109/70 mmHg Sitting Heart Rate Pre-Dialysis 76 BPM Standing Heart Rate Pre-Dialysis 70 BPM Temperature Pre-Dialysis 97 degF Weight Pre-Dialysis 108.1 kg September 10, 2022 CCPD September 09, 2022 CCPD September 08, 2022 CCPD September 07, 2022 CCPD September 06, 2022 CCPD September 05, 2022 CCPD September 04, 2022 CCPD September 03, 2022 CCPD September 02, 2022 CCPD September 01, 2022 CCPD August 31, 2022 CCPD August 30, 2022 CCPD August 29, 2022 CCPD August 28, 2022 CCPD August 27, 2022 CCPD August 26, 2022 CCPD BP Sitting (Pre-Dialysis) 120/73 mmHg BP Standing (Pre-Dialysis) 127/63 mmHg Sitting Heart Rate Pre-Dialysis 68 BPM Standing Heart Rate Pre-Dialysis 71 BPM Temperature Pre-Dialysis 97.7 degF Weight Pre-Dialysis 109 kg August 26, 2022 CCPD August 25, 2022 CCPD August 24, 2022 [facility] August 23, 2022 [facility] August 22, 2022 [facility] August 21, 2022 [facility] August 20, 2022 [facility] August 19, 2022 [facility] August 18, 2022 [facility] August 17, 2022 [facility] August 16, 2022 [facility] August 15, 2022 [facility] August 14, 2022 [facility] August 13, 2022 [facility] August 12, 2022 [facility] August 11, 2022 [facility] August 10, 2022 [facility] August 09, 2022 [facility] August 08, 2022 [facility] August 07, 2022 [facility] August 06, 2022 [facility] BP Sitting (Pre-Dialysis) 145/78 mmHg BP Standing (Pre-Dialysis) 121/69 mmHg Sitting Heart Rate Pre-Dialysis 66 BPM Standing Heart Rate Pre-Dialysis 70 BPM Temperature Pre-Dialysis 98.4 degF Weight Pre-Dialysis 111.8 kg August 06, 2022 [facility] August 05, 2022 [facility] August 04, 2022 [facility] August 03, 2022 [facility] August 02, 2022 [facility] August 01, 2022 [facility] July 31, 2022 [facility] July 30, 2022 [facility] July 29, 2022 [facility] July 28, 2022 [facility] July 27, 2022 [facility] July 26, 2022 [facility] July 25, 2022 [facility] July 24, 2022 [facility] July 23, 2022 [facility] BP Sitting (Pre-Dialysis) 154/77 mmHg BP Standing (Pre-Dialysis) 161/77 mmHg Sitting Heart Rate Pre-Dialysis 68 BPM Standing Heart Rate Pre-Dialysis 68 BPM Temperature Pre-Dialysis 98.1 degF Weight Pre-Dialysis 112.2 kg July 23, 2022 [facility] July 22, 2022 [facility] July 21, 2022 [facility] July 20, 2022 [facility] July 19, 2022 [facility] July 18, 2022 [facility] July 17, 2022 [facility] July 16, 2022 [facility] July 15, 2022 [facility] July 14, 2022 [facility] July 13, 2022 [facility] July 12, 2022 [facility] July 11, 2022 [facility] July 10, 2022 [facility] July 09, 2022 [facility] July 08, 2022 [facility] July 07, 2022 [facility] July 06, 2022 [facility] July 05, 2022 [facility] July 04, 2022 [facility] BP Sitting (Pre-Dialysis) 129/69 mmHg BP Standing (Pre-Dialysis) 88/68 mmHg Sitting Heart Rate Pre-Dialysis 88 BPM Standing Heart Rate Pre-Dialysis 72 BPM Temperature Pre-Dialysis 98 degF Weight Pre-Dialysis 111.8 kg July 04, 2022 [facility] July 03, 2022 [facility] July 02, 2022 [facility] July 01, 2022 [facility] June 30, 2022 [facility] June 29, 2022 [facility] June 28, 2022 [facility] June 27, 2022 [facility] June 26, 2022 [facility] June 25, 2022 [facility] June 24, 2022 [facility] June 23, 2022 [facility] June 22, 2022 [facility] June 21, 2022 [facility] BP Sitting (Pre-Dialysis) 47/76 mmHg BP Standing (Pre-Dialysis) 111/84 mmHg Sitting Heart Rate Pre-Dialysis 76 BPM Standing Heart Rate Pre-Dialysis 79 BPM Temperature Pre-Dialysis 97.5 degF Weight Pre-Dialysis 111.8 kg June 21, 2022 [facility] June 20, 2022 [facility] June 19, 2022 [facility] June 18, 2022 [facility] June 17, 2022 [facility] June 16, 2022 [facility] June 15, 2022 [facility] June 14, 2022 [facility] June 13, 2022 [facility] June 12, 2022 [facility] June 11, 2022 [facility] June 10, 2022 [facility] June 09, 2022 [facility] June 08, 2022 [facility] June 07, 2022 [facility] June 06, 2022 [facility] June 05, 2022 [facility] June 04, 2022 [facility] BP Sitting (Pre-Dialysis) 160/83 mmHg BP Standing (Pre-Dialysis) 114/68 mmHg Sitting Heart Rate Pre-Dialysis 114 BPM Standing Heart Rate Pre-Dialysis 83 BPM Temperature Pre-Dialysis 97 degF Weight Pre-Dialysis 111.3 kg June 04, 2022 [facility] June 03, 2022 [facility] June 02, 2022 [facility] June 01, 2022 [facility] May 31, 2022 [facility] May 30, 2022 [facility] May 29, 2022 [facility] May 28, 2022 [facility] May 27, 2022 [facility] May 26, 2022 [facility] May 25, 2022 [facility] May 24, 2022 [facility] BP Sitting (Pre-Dialysis) 165/83 mmHg BP Standing (Pre-Dialysis) 119/64 mmHg Sitting Heart Rate Pre-Dialysis 69 BPM Standing Heart Rate Pre-Dialysis 76 BPM Temperature Pre-Dialysis 96.3 degF Weight Pre-Dialysis 111.8 kg May 24, 2022 [facility] May 23, 2022 [facility] May 22, 2022 [facility] May 21, 2022 [facility] May 20, 2022 [facility] May 19, 2022 [facility] May 18, 2022 [facility] May 17, 2022 [facility] May 16, 2022 [facility] May 15, 2022 [facility] May 14, 2022 [facility] May 13, 2022 [facility] May 12, 2022 [facility] May 11, 2022 [facility] May 10, 2022 [facility] May 09, 2022 [facility] May 08, 2022 [facility] May 07, 2022 [facility] BP Sitting (Pre-Dialysis) 157/82 mmHg BP Standing (Pre-Dialysis) 157/82 mmHg Sitting Heart Rate Pre-Dialysis 73 BPM Standing Heart Rate Pre-Dialysis 73 BPM Temperature Pre-Dialysis 97.2 degF Weight Pre-Dialysis 111.8 kg May 07, 2022 [facility] May 06, 2022 [facility] May 05, 2022 [facility] May 04, 2022 [facility] May 03, 2022 [facility] May 02, 2022 [facility] May 01, 2022 [facility] April 30, 2022 [facility] April 29, 2022 [facility] April 28, 2022 [facility] April 27, 2022 [facility] April 26, 2022 [facility] April 25, 2022 [facility] April 24, 2022 [facility] April 23, 2022 [facility] April 22, 2022 [facility] BP Sitting (Pre-Dialysis) 164/88 mmHg BP Standing (Pre-Dialysis) 164/88 mmHg Sitting Heart Rate Pre-Dialysis 67 BPM Standing Heart Rate Pre-Dialysis 67 BPM Temperature Pre-Dialysis 97.3 degF Weight Pre-Dialysis 112.2 kg April 22, 2022 [facility] April 21, 2022 [facility] April 20, 2022 [facility] April 19, 2022 [facility] April 18, 2022 [facility] April 17, 2022 [facility] April 16, 2022 [facility] April 15, 2022 [facility] April 14, 2022 [facility] April 13, 2022 [facility] April 12, 2022 [facility] April 11, 2022 [facility] April 10, 2022 [facility] April 09, 2022 [facility] BP Sitting (Pre-Dialysis) 175/95 mmHg BP Standing (Pre-Dialysis) 135/78 mmHg Sitting Heart Rate Pre-Dialysis 65 BPM Standing Heart Rate Pre-Dialysis 73 BPM Temperature Pre-Dialysis 97.3 degF Weight Pre-Dialysis 111.3 kg April 09, 2022 [facility] April 08, 2022 [facility] April 07, 2022 [facility] April 06, 2022 [facility] April 05, 2022 [facility] April 04, 2022 [facility] April 03, 2022 [facility] April 02, 2022 [facility] April 01, 2022 [facility] BP Sitting (Pre-Dialysis) 170/91 mmHg BP Standing (Pre-Dialysis) 148/80 mmHg Sitting Heart Rate Pre-Dialysis 71 BPM Standing Heart Rate Pre-Dialysis 79 BPM Temperature Pre-Dialysis 98.1 degF Weight Pre-Dialysis 111.3 kg April 01, 2022 [facility] March 31, 2022 [facility] March 30, 2022 [facility] March 29, 2022 [facility] March 28, 2022 [facility] March 27, 2022 [facility] March 26, 2022 [facility] March 25, 2022 [facility] March 24, 2022 [facility] March 23, 2022 [facility] March 22, 2022 [facility] March 21, 2022 [facility] March 20, 2022 [facility] March 19, 2022 [facility] March 18, 2022 [facility] March 17, 2022 [facility] March 16, 2022 [facility] March 15, 2022 [facility] March 14, 2022 [facility] March 13, 2022 [facility] March 12, 2022 [facility] March 11, 2022 [facility] March 10, 2022 [facility] March 09, 2022 [facility] March 08, 2022 [facility] March 07, 2022 [facility] March 06, 2022 [facility] March 05, 2022 [facility] BP Sitting (Pre-Dialysis) 156/90 mmHg BP Standing (Pre-Dialysis) 136/75 mmHg Sitting Heart Rate Pre-Dialysis 75 BPM Standing Heart Rate Pre-Dialysis 75 BPM Temperature Pre-Dialysis 97.2 degF Weight Pre-Dialysis 111.3 kg March 05, 2022 [facility] March 04, 2022 [facility] March 03, 2022 [facility] March 02, 2022 [facility] March 01, 2022 [facility] February 28, 2022 [facility] February 27, 2022 [facility] February 26, 2022 [facility] February 25, 2022 [facility] February 24, 2022 [facility] February 23, 2022 [facility] February 22, 2022 [facility] February 21, 2022 [facility] February 20, 2022 [facility] February 19, 2022 [facility] BP Sitting (Pre-Dialysis) 136/75 mmHg BP Standing (Pre-Dialysis) 136/75 mmHg Sitting Heart Rate Pre-Dialysis 75 BPM Standing Heart Rate Pre-Dialysis 70 BPM Temperature Pre-Dialysis 97.2 degF Weight Pre-Dialysis 111.3 kg February 19, 2022 [facility] February 18, 2022 [facility] February 17, 2022 [facility] February 16, 2022 [facility] February 15, 2022 [facility] February 14, 2022 [facility] February 13, 2022 [facility] February 12, 2022 [facility] February 11, 2022 [facility] February 10, 2022 [facility] February 09, 2022 [facility] February 08, 2022 [facility] February 07, 2022 [facility] February 06, 2022 [facility] February 05, 2022 [facility] February 04, 2022 [facility] February 03, 2022 [facility] February 02, 2022 [facility] February 01, 2022 [facility] January 31, 2022 [facility] January 30, 2022 [facility] January 29, 2022 [facility] January 28, 2022 [facility] January 27, 2022 [facility] DIALYSIS ORDER Dialysis Procedure Orders Type of Dialysis Procedure Order Order Date/Time Observations [facility] August 19, 2023 Target Weight 104.5 kg Ordered Access Type Peritoneal dialysis catheter Vendor [employer] Total Fill Volume per 24 Hour 98666 mL Target Cycler Total Time 10hr Treatment Location Display At Patient's Home Target Weight with Prescribed Day Fill Y es Training Element No Training Incremental Increase Flag No Day Exchange Delivery Method Manual Day Exchange Number of Exchanges 1 Day Exchange Calcium 2.5 mEq/L Day Exchange Magnesium 0.5 mEq/L Overnight Exchange Delivery Method Cycle r Overnight Exchange Number of Exchanges 4 Overnight Exchange Calcium 2.5 mEq/L Overnight Exchange Magnesium 0.5 mEq/L Overnight Exchange Target Dwell Time 1 h r 24 Min Overnight Exchange Last Fill Target Dwel l TimeDaytime Exchange Info 14 hr 0 Min Fill Number: 1 [email or web address]_[email or web address] Varied-See Instruction(s) Results Adequacy Description Draw Date Result/Unit Status Ref Range Result Comments KT/V TOTAL (M) 2024-03-07 01:53:27 1.71 Kt/V F CRE CLR UR 2024-03-07 01:53:27 1 mL/min F 97.0-137.0 L/WK/1.73 RESID 2024-03-07 01:53:27 4.51 L/WK/B F UREA CLR UR/BSA 2024-03-07 01:53:27 0.2 mL/min F 64.0-99.0 UREA CLR UR 2024-03-07 01:53:27 0.3 mL/min F KT/V RESID (M) 2024-03-07 01:53:27 0.05 Kt/V F L/WK/1.73 TOTAL 2024-03-07 01:53:27 61.24 L/WK/B F L/WK RESID CC 2024-03-07 01:53:27 6.06 L/wk F CRE CLR UR/BSA 2024-03-07 01:53:27 1 mL/min F 85.0-125.0 UREA CLR UR/BSA 2024-03-07 01:53:27 0.2 mL/min F 64.0-99.0 CRE CLR UR/BSA 2024-03-07 01:53:27 1 mL/min F 85.0-125.0 UREA CLR UR 2024-03-07 01:53:27 0.3 mL/min F CRE CLR UR 2024-03-07 01:53:27 1 mL/min F 97.0-137.0 KT/V RESID (M) 2024-03-07 01:53:27 0.05 Kt/V F L/WK/1.73 RESID 2024-03-07 01:53:27 4.51 L/WK/B F L/WK/1.73 TOTAL 2024-03-07 01:53:27 61.24 L/WK/B F KT/V TOTAL (M) 2024-03-07 01:53:27 1.71 Kt/V F L/WK RESID CC 2024-03-07 01:53:27 6.06 L/wk F Urea Gen Rate 2024-03-07 01:53:27 9.2 GM/D F PNA (PD) 2024-03-07 01:53:27 61.6 g/day F PCR PD MALE 2024-03-07 01:53:27 56 g/day F nPNA (PD MALE) 2024-03-07 01:53:27 0.65 G/KG/D F NPCR PD MALE 2024-03-07 01:53:27 0.59 G/KG/D F PNA (PD) 2024-03-07 01:53:27 61.6 g/day F nPNA (PD MALE) 2024-03-07 01:53:27 0.65 G/KG/D F PCR PD MALE 2024-03-07 01:53:27 56 g/day F NPCR PD MALE 2024-03-07 01:53:27 0.59 G/KG/D F Urea Gen Rate 2024-03-07 01:53:27 9.2 GM/D F Creatinine [Mass/volume] in Urine 2024-03-07 01:52:24 105.72 mg/dL F Urea nitrogen [Mass/volume] in Urine 2024-03-07 01:52:24 199 mg/dL F Urea nitrogen [Mass/volume] in Urine 2024-03-07 01:52:24 199 mg/dL F Creatinine [Mass/volume] in Urine 2024-03-07 01:52:24 105.72 mg/dL F KT/V [facility] () 2024-03-07 01:47:05 1.65 Kt/V F L/WK [facility] 2024-03-07 01:47:05 76.3 L/wk F L/WK/1.73 [facility] 2024-03-07 01:47:05 56.74 L/WK/B F L/WK [facility] 2024-03-07 01:47:05 76.3 L/wk F KT/V [facility] () 2024-03-07 01:47:05 1.65 Kt/V F L/WK/1.73 [facility] 2024-03-07 01:47:05 56.74 L/WK/B F Creatinine [Mass/volume] in Peritoneal dialysis fluid 2024-03-07 01:46:20 5.93 mg/dL F Urea nitrogen [Mass/volume] in Peritoneal fluid --24 hours post peritoneal dialysis 2024-03-07 01:46:20 40 mg/dL F Creatinine [Mass/volume] in Peritoneal dialysis fluid 2024-03-07 01:46:20 5.93 mg/dL F Urea nitrogen [Mass/volume] in Peritoneal fluid --24 hours post peritoneal dialysis 2024-03-07 01:46:20 40 mg/dL F BUN/CREAT 2024-03-06 23:36:12 5.7 Calc F 6.9-32.9 BUN/CREAT 2024-03-06 23:36:12 5.7 Calc F 6.9-32.9 Urea nitrogen [Mass/volume] in Serum or Plasma 2024-03-06 23:33:23 46 mg/dL F 9.0-23.0 Creatinine [Mass/volume] in Serum or Plasma 2024-03-06 23:33:23 8.14 mg/dL F 0.7-1.3 Urea nitrogen [Mass/volume] in Serum or Plasma 2024-03-06 23:33:23 46 mg/dL F 9.0-23.0 Creatinine [Mass/volume] in Serum or Plasma 2024-03-06 23:33:23 8.14 mg/dL F 0.7-1.3 [facility] MILLER MALE 2024-03-06 20:46:08 55.14 Liters F BSA TOBIN 2024-03-06 20:46:08 2.33 sq m F BSA TOBIN 2024-03-06 20:46:08 2.33 sq m F TBW MILLER MALE 2024-03-06 20:46:08 55.14 Liters F HEIGHT IN INCHES 2024-03-05 18:52:37 69 Inches F BODY WEIGHT (LBS) 2024-03-05 18:52:37 264 lbs F PATIENT AGE 2024-03-05 18:52:37 69 Years F AMPUTATE FACTOR 2024-03-05 18:52:37 0 F HEIGHT IN INCHES 2024-03-05 18:52:37 69 Inches F AMPUTATE FACTOR 2024-03-05 18:52:37 0 F PATIENT AGE 2024-03-05 18:52:37 69 Years F BODY WEIGHT (LBS) 2024-03-05 18:52:37 264 lbs F MINIMUM GOAL: KT/V PD 2024-03-05 18:52:37 1.7 F Total Volume of EFFL/DIAL 2024-03-05 18:52:37 49027 mLs F Total Volume of EFFL/DIAL 2024-03-05 18:52:37 59474 mLs F MINIMUM GOAL: KT/V PD 2024-03-05 18:52:37 1.7 F COLLECTION TIME FOR URINE 2024-03-05 18:52:37 1440 min F TOTAL VOLUME-24 HR URINE 2024-03-05 18:52:37 100 mL F TOTAL VOLUME-24 HR URINE 2024-03-05 18:52:37 100 mL F COLLECTION TIME FOR URINE 2024-03-05 18:52:37 1440 min F BUN/CREAT 2024-01-28 19:22:27 5.6 Calc F 6.9-32.9 Creatinine [Mass/volume] in Serum or Plasma 2024-01-28 19:12:24 8.68 mg/dL F 0.7-1.3 Urea nitrogen [Mass/volume] in Serum or Plasma 2024-01-28 19:12:24 49 mg/dL F 9.0-23.0 BUN/CREAT 2023-12-31 23:36:38 6.1 Calc F 6.9-32.9 BUN/CREAT 2023-12-31 23:36:38 6.1 Calc F 6.9-32.9 Urea nitrogen [Mass/volume] in Serum or Plasma 2023-12-31 23:35:20 58 mg/dL F 9.0-23.0 Creatinine [Mass/volume] in Serum or Plasma 2023-12-31 23:35:20 9.44 mg/dL F 0.7-1.3 Creatinine [Mass/volume] in Serum or Plasma 2023-12-31 23:35:20 9.44 mg/dL F 0.7-1.3 Urea nitrogen [Mass/volume] in Serum or Plasma 2023-12-31 23:35:20 58 mg/dL F 9.0-23.0 KT/V PDF (M) 2023-11-20 00:49:18 1.44 Kt/V F L/WK/1.73 PDF 2023-11-20 00:49:18 48.88 L/WK/B F UREA CLR UR 2023-11-20 00:49:18 0.6 mL/min F L/WK RESID CC 2023-11-20 00:49:18 10.09 L/wk F L/WK PDF CC 2023-11-20 00:49:18 65.94 L/wk F KT/V RESID (M) 2023-11-20 00:49:18 0.11 Kt/V F L/WK/1.73 TOTAL 2023-11-20 00:49:18 56.36 L/WK/B F L/WK/1.73 RESID 2023-11-20 00:49:18 7.48 L/WK/B F KT/V TOTAL (M) 2023-11-20 00:49:18 1.55 Kt/V F BUN/CREAT 2023-11-20 00:49:18 6.2 Calc F 6.9-32.9 UREA CLR UR/BSA 2023-11-20 00:49:18 0.4 mL/min F 64.0-99.0 CRE CLR UR/BSA 2023-11-20 00:49:18 1 mL/min F 85.0-125.0 CRE CLR UR 2023-11-20 00:49:18 1 mL/min F 97.0-137.0 Creatinine [Mass/volume] in Serum or Plasma 2023-11-20 00:49:13 8.42 mg/dL F 0.7-1.3 Urea nitrogen [Mass/volume] in Serum or Plasma 2023-11-20 00:49:13 52 mg/dL F 9.0-23.0 Urea Gen Rate 2023-11-19 22:15:23 9.5 GM/D F NPCR PD MALE 2023-11-19 22:15:23 0.6 G/KG/D F PNA (PD) 2023-11-19 22:15:23 63.3 g/day F PCR PD MALE 2023-11-19 22:15:23 58 g/day F nPNA (PD MALE) 2023-11-19 22:15:23 0.66 G/KG/D F Urea nitrogen [Mass/volume] in Urine 2023-11-19 22:15:18 300 mg/dL F Creatinine [Mass/volume] in Urine 2023-11-19 22:15:18 113.2 mg/dL F TBW ANGELA MALE 2023-11-19 18:51:17 55.54 Liters F BSA TOBIN 2023-11-19 18:51:17 2.33 sq m F Creatinine [Mass/volume] in Peritoneal dialysis fluid 2023-11-19 18:51:12 5.59 mg/dL F Urea nitrogen [Mass/volume] in Peritoneal fluid --24 hours post peritoneal dialysis 2023-11-19 18:51:12 42 mg/dL F HEIGHT IN INCHES 2023-11-18 19:59:06 69 Inches F BODY WEIGHT (LBS) 2023-11-18 19:59:06 266 lbs F AMPUTATE FACTOR 2023-11-18 19:59:06 0 F PATIENT AGE 2023-11-18 19:59:06 68 Years F Total Volume of EFFL/DIAL 2023-11-18 19:59:06 10702 mLs F MINIMUM GOAL: KT/V PD 2023-11-18 19:59:06 1.7 F COLLECTION TIME FOR URINE 2023-11-18 19:59:06 1440 min F TOTAL VOLUME-24 HR URINE 2023-11-18 19:59:06 150 mL F BUN/CREAT 2023-10-23 16:48:45 6.1 Calc F 6.9-32.9 BUN/CREAT 2023-10-23 16:48:45 6.1 Calc F 6.9-32.9 Urea nitrogen [Mass/volume] in Serum or Plasma 2023-10-23 16:48:18 46 mg/dL F 9.0-23.0 Creatinine [Mass/volume] in Serum or Plasma 2023-10-23 16:48:18 7.5 mg/dL F 0.7-1.3 Creatinine [Mass/volume] in Serum or Plasma 2023-10-23 16:48:18 7.5 mg/dL F 0.7-1.3 Urea nitrogen [Mass/volume] in Serum or Plasma 2023-10-23 16:48:18 46 mg/dL F 9.0-23.0 BUN/CREAT 2023-09-26 07:18:00 4.8 Calc F 6.9-32.9 BUN/CREAT 2023-09-26 07:18:00 4.8 Calc F 6.9-32.9 Urea nitrogen [Mass/volume] in Serum or Plasma 2023-09-25 13:43:37 37 mg/dL F 9.0-23.0 Creatinine [Mass/volume] in Serum or Plasma 2023-09-25 13:43:37 7.72 mg/dL F 0.7-1.3 Urea nitrogen [Mass/volume] in Serum or Plasma 2023-09-25 13:43:37 37 mg/dL F 9.0-23.0 Creatinine [Mass/volume] in Serum or Plasma 2023-09-25 13:43:37 7.72 mg/dL F 0.7-1.3 L/WK PDF CC 2023-08-26 21:26:12 62.09 L/wk F KT/V TOTAL (M) 2023-08-26 21:26:12 1.75 Kt/V F KT/V PDF (M) 2023-08-26 21:26:12 1.54 Kt/V F L/WK/1.73 PDF 2023-08-26 21:26:12 48.51 L/WK/B F L/WK/1.73 TOTAL 2023-08-26 21:26:12 60.87 L/WK/B F PCR PD MALE 2023-08-26 21:26:12 67 g/day F Urea Gen Rate 2023-08-26 21:26:12 11.9 GM/D F NPCR PD MALE 2023-08-26 21:26:12 0.76 G/KG/D F nPNA (PD MALE) 2023-08-26 21:26:12 0.86 G/KG/D F PNA (PD) 2023-08-26 21:26:12 75.2 g/day F Urea nitrogen [Mass/volume] in Peritoneal fluid --24 hours post peritoneal dialysis 2023-08-26 21:25:34 47 mg/dL F Creatinine [Mass/volume] in Peritoneal dialysis fluid 2023-08-26 21:25:34 4.4 mg/dL F L/WK RESID CC 2023-08-26 18:51:54 15.81 L/wk F L/WK/1.73 RESID 2023-08-26 18:51:54 12.36 L/WK/B F UREA CLR UR 2023-08-26 18:51:54 1.1 mL/min F KT/V RESID (M) 2023-08-26 18:51:54 0.22 Kt/V F BUN/CREAT 2023-08-26 18:51:54 8.5 Calc F 6.9-32.9 UREA CLR UR/BSA 2023-08-26 18:51:54 0.9 mL/min F 64.0-99.0 CRE CLR UR/BSA 2023-08-26 18:51:54 2 mL/min F 85.0-125.0 CRE CLR UR 2023-08-26 18:51:54 2 mL/min F 97.0-137.0 Creatinine [Mass/volume] in Serum or Plasma 2023-08-26 18:51:36 7.41 mg/dL F 0.7-1.3 Urea nitrogen [Mass/volume] in Serum or Plasma 2023-08-26 18:51:36 63 mg/dL F 9.0-23.0 BSA TOBIN 2023-08-26 15:39:52 2.21 sq m F TBW MILLER MALE 2023-08-26 15:39:52 50.81 Liters F Urea nitrogen [Mass/volume] in Urine 2023-08-26 15:39:30 284 mg/dL F Creatinine [Mass/volume] in Urine 2023-08-26 15:39:30 62.25 mg/dL F BODY WEIGHT (LBS) 2023-08-25 20:18:50 235 lbs F HEIGHT IN INCHES 2023-08-25 20:18:50 69 Inches F AMPUTATE FACTOR 2023-08-25 20:18:50 0 F PATIENT AGE 2023-08-25 20:18:50 68 Years F MINIMUM GOAL: KT/V PD 2023-08-25 20:18:50 1.7 F Total Volume of EFFL/DIAL 2023-08-25 20:18:50 34349 mLs F TOTAL VOLUME-24 HR URINE 2023-08-25 20:18:50 350 mL F COLLECTION TIME FOR URINE 2023-08-25 20:18:50 1440 min F BUN/CREAT 2023-07-24 17:40:31 5.6 Calc F 6.9-32.9 Creatinine [Mass/volume] in Serum or Plasma 2023-07-24 17:39:41 8.59 mg/dL F 0.7-1.3 Urea nitrogen [Mass/volume] in Serum or Plasma 2023-07-24 17:39:41 48 mg/dL F 9.0-23.0 BUN/CREAT 2023-06-28 15:39:26 4.9 Calc F 6.9-32.9 BUN/CREAT 2023-06-28 15:39:26 4.9 Calc F 6.9-32.9 Creatinine [Mass/volume] in Serum or Plasma 2023-06-28 15:38:38 7.3 mg/dL F 0.7-1.3 Urea nitrogen [Mass/volume] in Serum or Plasma 2023-06-28 15:38:38 36 mg/dL F 9.0-23.0 Urea nitrogen [Mass/volume] in Serum or Plasma 2023-06-28 15:38:38 36 mg/dL F 9.0-23.0 Creatinine [Mass/volume] in Serum or Plasma 2023-06-28 15:38:38 7.3 mg/dL F 0.7-1.3 L/WK RESID CC 2023-05-24 01:22:42 13.17 L/wk F KT/V PDF (M) 2023-05-24 01:22:42 1.41 Kt/V F KT/V TOTAL (M) 2023-05-24 01:22:42 1.6 Kt/V F UREA CLR UR 2023-05-24 01:22:42 0.9 mL/min F L/WK PDF CC 2023-05-24 01:22:42 54.08 L/wk F KT/V RESID (M) 2023-05-24 01:22:42 0.19 Kt/V F L/WK/1.73 PDF 2023-05-24 01:22:42 42.33 L/WK/B F L/WK/1.73 TOTAL 2023-05-24 01:22:42 52.64 L/WK/B F L/WK/1.73 RESID 2023-05-24 01:22:42 10.3 L/WK/B F BUN/CREAT 2023-05-24 01:22:42 5 Calc F 6.9-32.9 UREA CLR UR/BSA 2023-05-24 01:22:42 0.7 mL/min F 64.0-99.0 CRE CLR UR/BSA 2023-05-24 01:22:42 1 mL/min F 85.0-125.0 CRE CLR UR 2023-05-24 01:22:42 2 mL/min F 97.0-137.0 UREA CLR UR/BSA 2023-05-24 01:22:42 0.7 mL/min F 64.0-99.0 CRE CLR UR/BSA 2023-05-24 01:22:42 1 mL/min F 85.0-125.0 L/WK/1.73 RESID 2023-05-24 01:22:42 10.3 L/WK/B F L/WK/1.73 PDF 2023-05-24 01:22:42 42.33 L/WK/B F KT/V TOTAL () 2023-05-24 01:22:42 1.6 Kt/V F L/WK RESID CC 2023-05-24 01:22:42 13.17 L/wk F BUN/CREAT 2023-05-24 01:22:42 5 Calc F 6.9-32.9 UREA CLR UR 2023-05-24 01:22:42 0.9 mL/min F L/WK PDF CC 2023-05-24 01:22:42 54.08 L/wk F CRE CLR UR 2023-05-24 01:22:42 2 mL/min F 97.0-137.0 L/WK/1.73 TOTAL 2023-05-24 01:22:42 52.64 L/WK/B F KT/V PDF (M) 2023-05-24 01:22:42 1.41 Kt/V F KT/V RESID (M) 2023-05-24 01:22:42 0.19 Kt/V F Creatinine [Mass/volume] in Serum or Plasma 2023-05-24 01:21:33 7.53 mg/dL F 0.7-1.3 Urea nitrogen [Mass/volume] in Serum or Plasma 2023-05-24 01:21:33 38 mg/dL F 9.0-23.0 Creatinine [Mass/volume] in Serum or Plasma 2023-05-24 01:21:33 7.53 mg/dL F 0.7-1.3 Urea nitrogen [Mass/volume] in Serum or Plasma 2023-05-24 01:21:33 38 mg/dL F 9.0-23.0 NPCR PD MALE 2023-05-23 13:13:09 0.5 G/KG/D F nPNA (PD MALE) 2023-05-23 13:13:09 0.55 G/KG/D F PNA (PD) 2023-05-23 13:13:09 48.4 g/day F PCR PD MALE 2023-05-23 13:13:09 43 g/day F Urea Gen Rate 2023-05-23 13:13:09 6.5 GM/D F NPCR PD MALE 2023-05-23 13:13:09 0.5 G/KG/D F PNA (PD) 2023-05-23 13:13:09 48.4 g/day F nPNA (PD MALE) 2023-05-23 13:13:09 0.55 G/KG/D F PCR PD MALE 2023-05-23 13:13:09 43 g/day F Urea Gen Rate 2023-05-23 13:13:09 6.5 GM/D F Urea nitrogen [Mass/volume] in Urine 2023-05-23 13:12:40 256 mg/dL F Creatinine [Mass/volume] in Urine 2023-05-23 13:12:40 90.89 mg/dL F Creatinine [Mass/volume] in Urine 2023-05-23 13:12:40 90.89 mg/dL F Urea nitrogen [Mass/volume] in Urine 2023-05-23 13:12:40 256 mg/dL F TBW ANGELA MALE 2023-05-22 19:19:01 50.65 Liters F BSA TOBIN 2023-05-22 19:19:01 2.21 sq m F BSA TOBIN 2023-05-22 19:19:01 2.21 sq m F TBW ANGELA MALE 2023-05-22 19:19:01 50.65 Liters F Urea nitrogen [Mass/volume] in Peritoneal fluid --24 hours post peritoneal dialysis 2023-05-22 19:18:45 28 mg/dL F Creatinine [Mass/volume] in Peritoneal dialysis fluid 2023-05-22 19:18:45 4.19 mg/dL F Creatinine [Mass/volume] in Peritoneal dialysis fluid 2023-05-22 19:18:45 4.19 mg/dL F Urea nitrogen [Mass/volume] in Peritoneal fluid --24 hours post peritoneal dialysis 2023-05-22 19:18:45 28 mg/dL F PATIENT AGE 2023-05-21 21:12:30 68 Years F HEIGHT IN INCHES 2023-05-21 21:12:30 69 Inches F BODY WEIGHT (LBS) 2023-05-21 21:12:30 234 lbs F AMPUTATE FACTOR 2023-05-21 21:12:30 0 F PATIENT AGE 2023-05-21 21:12:30 68 Years F BODY WEIGHT (LBS) 2023-05-21 21:12:30 234 lbs F HEIGHT IN INCHES 2023-05-21 21:12:30 69 Inches F AMPUTATE FACTOR 2023-05-21 21:12:30 0 F Total Volume of EFFL/DIAL 2023-05-21 21:12:30 79190 mLs F MINIMUM GOAL: KT/V PD 2023-05-21 21:12:30 1.7 F Total Volume of EFFL/DIAL 2023-05-21 21:12:30 75232 mLs F MINIMUM GOAL: KT/V PD 2023-05-21 21:12:30 1.7 F COLLECTION TIME FOR URINE 2023-05-21 21:12:30 1440 min F TOTAL VOLUME-24 HR URINE 2023-05-21 21:12:30 200 mL F COLLECTION TIME FOR URINE 2023-05-21 21:12:30 1440 min F TOTAL VOLUME-24 HR URINE 2023-05-21 21:12:30 200 mL F BUN/CREAT 2023-04-24 18:08:00 6 Calc F 6.9-32.9 BUN/CREAT 2023-04-24 18:08:00 6 Calc F 6.9-32.9 Creatinine [Mass/volume] in Serum or Plasma 2023-04-24 18:06:58 7.29 mg/dL F 0.7-1.3 Urea nitrogen [Mass/volume] in Serum or Plasma 2023-04-24 18:06:58 44 mg/dL F 9.0-23.0 Creatinine [Mass/volume] in Serum or Plasma 2023-04-24 18:06:58 7.29 mg/dL F 0.7-1.3 Urea nitrogen [Mass/volume] in Serum or Plasma 2023-04-24 18:06:58 44 mg/dL F 9.0-23.0 BUN/CREAT 2023-04-03 16:22:32 4.2 Calc F 6.9-32.9 Creatinine [Mass/volume] in Serum or Plasma 2023-04-03 16:22:19 9.51 mg/dL F 0.7-1.3 Urea nitrogen [Mass/volume] in Serum or Plasma 2023-04-03 16:22:19 40 mg/dL F 9.0-23.0 L/WK/1.73 TOTAL 2023-02-26 19:39:34 68.64 L/WK/B F KT/V TOTAL (M) 2023-02-26 19:39:34 1.86 Kt/V F KT/V RESID (M) 2023-02-26 19:39:34 0.49 Kt/V F L/WK RESID CC 2023-02-26 19:39:34 33.91 L/wk F L/WK/1.73 RESID 2023-02-26 19:39:34 26.26 L/WK/B F UREA CLR UR 2023-02-26 19:39:34 2.5 mL/min F UREA CLR UR/BSA 2023-02-26 19:39:34 1.9 mL/min F 64.0-99.0 CRE CLR UR/BSA 2023-02-26 19:39:34 3 mL/min F 85.0-125.0 CRE CLR UR 2023-02-26 19:39:34 4 mL/min F 97.0-137.0 UREA CLR UR 2023-02-26 19:39:34 2.5 mL/min F CRE CLR UR 2023-02-26 19:39:34 4 mL/min F 97.0-137.0 L/WK/1.73 TOTAL 2023-02-26 19:39:34 68.64 L/WK/B F L/WK/1.73 RESID 2023-02-26 19:39:34 26.26 L/WK/B F L/WK RESID CC 2023-02-26 19:39:34 33.91 L/wk F CRE CLR UR/BSA 2023-02-26 19:39:34 3 mL/min F 85.0-125.0 UREA CLR UR/BSA 2023-02-26 19:39:34 1.9 mL/min F 64.0-99.0 KT/V TOTAL (M) 2023-02-26 19:39:34 1.86 Kt/V F KT/V RESID (M) 2023-02-26 19:39:34 0.49 Kt/V F NPCR PD MALE 2023-02-26 19:39:34 0.57 G/KG/D F Urea Gen Rate 2023-02-26 19:39:34 8.2 GM/D F nPNA (PD MALE) 2023-02-26 19:39:34 0.64 G/KG/D F PNA (PD) 2023-02-26 19:39:34 56.5 g/day F PCR PD MALE 2023-02-26 19:39:34 51 g/day F NPCR PD MALE 2023-02-26 19:39:34 0.57 G/KG/D F nPNA (PD MALE) 2023-02-26 19:39:34 0.64 G/KG/D F Urea Gen Rate 2023-02-26 19:39:34 8.2 GM/D F PNA (PD) 2023-02-26 19:39:34 56.5 g/day F PCR PD MALE 2023-02-26 19:39:34 51 g/day F Urea nitrogen [Mass/volume] in Urine 2023-02-26 19:39:11 240 mg/dL F Creatinine [Mass/volume] in Urine 2023-02-26 19:39:11 82.79 mg/dL F Urea nitrogen [Mass/volume] in Urine 2023-02-26 19:39:11 240 mg/dL F Creatinine [Mass/volume] in Urine 2023-02-26 19:39:11 82.79 mg/dL F KT/V PDF (M) 2023-02-26 19:29:51 1.37 Kt/V F L/WK/1.73 PDF 2023-02-26 19:29:51 42.39 L/WK/B F L/WK PDF 2023-02-26 19:29:51 54.74 L/wk F BUN/CREAT 2023-02-26 19:29:51 4.9 Calc F 6.9-32.9 KT/V [facility] () 2023-02-26 19:29:51 1.37 Kt/V F L/WK/1.73 PDF 2023-02-26 19:29:51 42.39 L/WK/B F L/WK [facility] 2023-02-26 19:29:51 54.74 L/wk F BUN/CREAT 2023-02-26 19:29:51 4.9 Calc F 6.9-32.9 Creatinine [Mass/volume] in Serum or Plasma 2023-02-26 19:29:35 8.16 mg/dL F 0.7-1.3 Urea nitrogen [Mass/volume] in Serum or Plasma 2023-02-26 19:29:35 40 mg/dL F 9.0-23.0 Urea nitrogen [Mass/volume] in Serum or Plasma 2023-02-26 19:29:35 40 mg/dL F 9.0-23.0 Creatinine [Mass/volume] in Serum or Plasma 2023-02-26 19:29:35 8.16 mg/dL F 0.7-1.3 TBW MILLER MALE 2023-02-26 06:09:52 51.57 Liters F BSA TOBIN 2023-02-26 06:09:52 2.23 sq m F BSA TOBIN 2023-02-26 06:09:52 2.23 sq m F TBW MILLER MALE 2023-02-26 06:09:52 51.57 Liters F Urea nitrogen [Mass/volume] in Peritoneal fluid --24 hours post peritoneal dialysis 2023-02-26 06:09:38 28 mg/dL F Creatinine [Mass/volume] in Peritoneal dialysis fluid 2023-02-26 06:09:38 4.41 mg/dL F Creatinine [Mass/volume] in Peritoneal dialysis fluid 2023-02-26 06:09:38 4.41 mg/dL F Urea nitrogen [Mass/volume] in Peritoneal fluid --24 hours post peritoneal dialysis 2023-02-26 06:09:38 28 mg/dL F PATIENT AGE 2023-02-24 21:43:47 68 Years F HEIGHT IN INCHES 2023-02-24 21:43:47 69 Inches F AMPUTATE FACTOR 2023-02-24 21:43:47 0 F BODY WEIGHT (LBS) 2023-02-24 21:43:47 240 lbs F HEIGHT IN INCHES 2023-02-24 21:43:47 69 Inches F PATIENT AGE 2023-02-24 21:43:47 68 Years F BODY WEIGHT (LBS) 2023-02-24 21:43:47 240 lbs F AMPUTATE FACTOR 2023-02-24 21:43:47 0 F Total Volume of EFFL/DIAL 2023-02-24 21:43:47 11542 mLs F MINIMUM GOAL: KT/V PD 2023-02-24 21:43:47 1.7 F Total Volume of EFFL/DIAL 2023-02-24 21:43:47 54090 mLs F MINIMUM GOAL: KT/V PD 2023-02-24 21:43:47 1.7 F TOTAL VOLUME-24 HR URINE 2023-02-24 21:43:47 600 mL F COLLECTION TIME FOR URINE 2023-02-24 21:43:47 1440 min F COLLECTION TIME FOR URINE 2023-02-24 21:43:47 1440 min F TOTAL VOLUME-24 HR URINE 2023-02-24 21:43:47 600 mL F BUN/CREAT 2023-01-22 03:54:23 5.4 Calc F 6.9-32.9 BUN/CREAT 2023-01-22 03:54:23 5.4 Calc F 6.9-32.9 Creatinine [Mass/volume] in Serum or Plasma 2023-01-22 03:53:35 7.24 mg/dL F 0.7-1.3 Urea nitrogen [Mass/volume] in Serum or Plasma 2023-01-22 03:53:35 39 mg/dL F 9.0-23.0 Creatinine [Mass/volume] in Serum or Plasma 2023-01-22 03:53:35 7.24 mg/dL F 0.7-1.3 Urea nitrogen [Mass/volume] in Serum or Plasma 2023-01-22 03:53:35 39 mg/dL F 9.0-23.0 BUN/CREAT 2022-12-27 16:17:51 6.4 Calc F 6.9-32.9 Creatinine [Mass/volume] in Serum or Plasma 2022-12-27 16:17:40 8.38 mg/dL F 0.7-1.3 Urea nitrogen [Mass/volume] in Serum or Plasma 2022-12-27 16:17:40 54 mg/dL F 9.0-23.0 KT/V RESID (M) 2022-11-24 03:59:49 0.57 Kt/V F L/WK/1.73 RESID 2022-11-24 03:59:49 28.58 L/WK/B F KT/V PDF (M) 2022-11-24 03:59:49 1.83 Kt/V F L/WK/1.73 TOTAL 2022-11-24 03:59:49 85.86 L/WK/B F UREA CLR UR 2022-11-24 03:59:49 2.9 mL/min F L/WK RESID CC 2022-11-24 03:59:49 36.77 L/wk F KT/V TOTAL (M) 2022-11-24 03:59:49 2.4 Kt/V F L/WK PDF CC 2022-11-24 03:59:49 73.71 L/wk F L/WK/1.73 PDF 2022-11-24 03:59:49 57.28 L/WK/B F BUN/CREAT 2022-11-24 03:59:49 4.7 Calc F 6.9-32.9 UREA CLR UR/BSA 2022-11-24 03:59:49 2.2 mL/min F 64.0-99.0 CRE CLR UR/BSA 2022-11-24 03:59:49 3 mL/min F 85.0-125.0 CRE CLR UR 2022-11-24 03:59:49 4 mL/min F 97.0-137.0 Creatinine [Mass/volume] in Serum or Plasma 2022-11-24 03:59:27 7.82 mg/dL F 0.7-1.3 Urea nitrogen [Mass/volume] in Serum or Plasma 2022-11-24 03:59:27 37 mg/dL F 9.0-23.0 PNA (PD) 2022-11-24 03:36:53 64.1 g/day F Urea Gen Rate 2022-11-24 03:36:53 9.7 GM/D F PCR PD MALE 2022-11-24 03:36:53 57 g/day F NPCR PD MALE 2022-11-24 03:36:53 0.65 G/KG/D F nPNA (PD MALE) 2022-11-24 03:36:53 0.72 G/KG/D F Urea nitrogen [Mass/volume] in Urine 2022-11-24 03:36:35 236 mg/dL F Creatinine [Mass/volume] in Urine 2022-11-24 03:36:35 76.52 mg/dL F TBW MILLER MALE 2022-11-24 02:28:34 51.36 Liters F BSA TOBIN 2022-11-24 02:28:34 2.23 sq m F Urea nitrogen [Mass/volume] in Peritoneal fluid --24 hours post peritoneal dialysis 2022-11-24 02:27:35 30 mg/dL F Creatinine [Mass/volume] in Peritoneal dialysis fluid 2022-11-24 02:27:35 4.96 mg/dL F PATIENT AGE 2022-11-22 20:28:52 67 Years F BODY WEIGHT (LBS) 2022-11-22 20:28:52 238 lbs F TOTAL VOLUME-24 HR URINE 2022-11-22 20:28:52 650 mL F MINIMUM GOAL: KT/V PD 2022-11-22 20:28:52 1.7 F HEIGHT IN INCHES 2022-11-22 20:28:52 69 Inches F COLLECTION TIME FOR URINE 2022-11-22 20:28:52 1440 min F Total Volume of EFFL/DIAL 2022-11-22 20:28:52 18870 mLs F AMPUTATE FACTOR 2022-11-22 20:28:52 0 F BUN/CREAT 2022-10-30 06:50:20 4.9 Calc F 6.9-32.9 BUN/CREAT 2022-10-30 06:50:20 4.9 Calc F 6.9-32.9 Urea nitrogen [Mass/volume] in Serum or Plasma 2022-10-30 06:49:36 37 mg/dL F 9.0-23.0 Creatinine [Mass/volume] in Serum or Plasma 2022-10-30 06:49:36 7.51 mg/dL F 0.7-1.3 Creatinine [Mass/volume] in Serum or Plasma 2022-10-30 06:49:36 7.51 mg/dL F 0.7-1.3 Urea nitrogen [Mass/volume] in Serum or Plasma 2022-10-30 06:49:36 37 mg/dL F 9.0-23.0 BUN/CREAT 2022-09-27 19:21:58 4.4 Calc F 6.9-32.9 Creatinine [Mass/volume] in Serum or Plasma 2022-09-27 19:21:36 8.12 mg/dL F 0.7-1.3 Urea nitrogen [Mass/volume] in Serum or Plasma 2022-09-27 19:21:36 36 mg/dL F 9.0-23.0 UREA CLR UR 2022-08-28 04:36:23 2.7 mL/min F L/WK/1.73 TOTAL 2022-08-28 04:36:23 69.75 L/WK/B F L/WK/1.73 PDF 2022-08-28 04:36:23 39.92 L/WK/B F L/WK/1.73 RESID 2022-08-28 04:36:23 29.83 L/WK/B F KT/V RESID (M) 2022-08-28 04:36:23 0.52 Kt/V F L/WK RESID CC 2022-08-28 04:36:23 38.52 L/wk F KT/V TOTAL (M) 2022-08-28 04:36:23 1.92 Kt/V F KT/V PDF (M) 2022-08-28 04:36:23 1.4 Kt/V F L/WK PDF CC 2022-08-28 04:36:23 51.55 L/wk F BUN/CREAT 2022-08-28 04:36:23 4.4 Calc F 6.9-32.9 UREA CLR UR/BSA 2022-08-28 04:36:23 2.1 mL/min F 64.0-99.0 CRE CLR UR/BSA 2022-08-28 04:36:23 4 mL/min F 85.0-125.0 CRE CLR UR 2022-08-28 04:36:23 5 mL/min F 97.0-137.0 CRE CLR UR/BSA 2022-08-28 04:36:23 4 mL/min F 85.0-125.0 UREA CLR UR/BSA 2022-08-28 04:36:23 2.1 mL/min F 64.0-99.0 UREA CLR UR 2022-08-28 04:36:23 2.7 mL/min F L/WK PDF CC 2022-08-28 04:36:23 51.55 L/wk F KT/V RESID (M) 2022-08-28 04:36:23 0.52 Kt/V F KT/V PDF (M) 2022-08-28 04:36:23 1.4 Kt/V F L/WK RESID CC 2022-08-28 04:36:23 38.52 L/wk F BUN/CREAT 2022-08-28 04:36:23 4.4 Calc F 6.9-32.9 CRE CLR UR 2022-08-28 04:36:23 5 mL/min F 97.0-137.0 L/WK/1.73 TOTAL 2022-08-28 04:36:23 69.75 L/WK/B F L/WK/1.73 RESID 2022-08-28 04:36:23 29.83 L/WK/B F KT/V TOTAL (M) 2022-08-28 04:36:23 1.92 Kt/V F L/WK/1.73 PDF 2022-08-28 04:36:23 39.92 L/WK/B F Creatinine [Mass/volume] in Serum or Plasma 2022-08-28 04:35:20 8 mg/dL F 0.7-1.3 Urea nitrogen [Mass/volume] in Serum or Plasma 2022-08-28 04:35:20 35 mg/dL F 9.0-23.0 Urea nitrogen [Mass/volume] in Serum or Plasma 2022-08-28 04:35:20 35 mg/dL F 9.0-23.0 Creatinine [Mass/volume] in Serum or Plasma 2022-08-28 04:35:20 8 mg/dL F 0.7-1.3 PCR PD MALE 2022-08-27 17:34:17 47 g/day F nPNA (PD MALE) 2022-08-27 17:34:17 0.59 G/KG/D F Urea Gen Rate 2022-08-27 17:34:17 7.4 GM/D F NPCR PD MALE 2022-08-27 17:34:17 0.53 G/KG/D F PNA (PD) 2022-08-27 17:34:17 52.5 g/day F PCR PD MALE 2022-08-27 17:34:17 47 g/day F NPCR PD MALE 2022-08-27 17:34:17 0.53 G/KG/D F PNA (PD) 2022-08-27 17:34:17 52.5 g/day F nPNA (PD MALE) 2022-08-27 17:34:17 0.59 G/KG/D F Urea Gen Rate 2022-08-27 17:34:17 7.4 GM/D F Urea nitrogen [Mass/volume] in Urine 2022-08-27 17:33:24 225 mg/dL F Creatinine [Mass/volume] in Urine 2022-08-27 17:33:24 95.31 mg/dL F Urea nitrogen [Mass/volume] in Urine 2022-08-27 17:33:24 225 mg/dL F Creatinine [Mass/volume] in Urine 2022-08-27 17:33:24 95.31 mg/dL F BSA TOBIN 2022-08-27 16:47:10 2.23 sq m F TBW MILLER MALE 2022-08-27 16:47:10 51.67 Liters F BSA TOBIN 2022-08-27 16:47:10 2.23 sq m F TBW MILLER MALE 2022-08-27 16:47:10 51.67 Liters F Creatinine [Mass/volume] in Peritoneal dialysis fluid 2022-08-27 16:46:57 4.25 mg/dL F Urea nitrogen [Mass/volume] in Peritoneal fluid --24 hours post peritoneal dialysis 2022-08-27 16:46:57 26 mg/dL F Creatinine [Mass/volume] in Peritoneal dialysis fluid 2022-08-27 16:46:57 4.25 mg/dL F Urea nitrogen [Mass/volume] in Peritoneal fluid --24 hours post peritoneal dialysis 2022-08-27 16:46:57 26 mg/dL F BODY WEIGHT (LBS) 2022-08-26 19:38:26 240 lbs F HEIGHT IN INCHES 2022-08-26 19:38:26 69 Inches F AMPUTATE FACTOR 2022-08-26 19:38:26 0 F PATIENT AGE 2022-08-26 19:38:26 67 Years F PATIENT AGE 2022-08-26 19:38:26 67 Years F HEIGHT IN INCHES 2022-08-26 19:38:26 69 Inches F AMPUTATE FACTOR 2022-08-26 19:38:26 0 F BODY WEIGHT (LBS) 2022-08-26 19:38:26 240 lbs F MINIMUM GOAL: KT/V PD 2022-08-26 19:38:26 1.7 F Total Volume of EFFL/DIAL 2022-08-26 19:38:26 43460 mLs F Total Volume of EFFL/DIAL 2022-08-26 19:38:26 95246 mLs F MINIMUM GOAL: KT/V PD 2022-08-26 19:38:26 1.7 F COLLECTION TIME FOR URINE 2022-08-26 19:38:26 1440 min F TOTAL VOLUME-24 HR URINE 2022-08-26 19:38:26 600 mL F TOTAL VOLUME-24 HR URINE 2022-08-26 19:38:26 600 mL F COLLECTION TIME FOR URINE 2022-08-26 19:38:26 1440 min F BUN/CREAT 2022-07-24 20:39:37 5.1 Calc F 6.9-32.9 Creatinine [Mass/volume] in Serum or Plasma 2022-07-24 20:39:22 6.92 mg/dL F 0.7-1.3 Urea nitrogen [Mass/volume] in Serum or Plasma 2022-07-24 20:39:22 35 mg/dL F 9.0-23.0 BUN/CREAT 2022-06-22 17:30:23 4.7 Calc F 6.9-32.9 Creatinine [Mass/volume] in Serum or Plasma 2022-06-22 17:30:12 6.58 mg/dL F 0.7-1.3 Urea nitrogen [Mass/volume] in Serum or Plasma 2022-06-22 17:30:12 31 mg/dL F 9.0-23.0 L/WK RESID CC 2022-05-25 23:33:37 51.09 L/wk F L/WK/1.73 RESID 2022-05-25 23:33:37 39.15 L/WK/B F KT/V PDF (M) 2022-05-25 23:33:37 1.52 Kt/V F KT/V TOTAL (M) 2022-05-25 23:33:37 2.05 Kt/V F L/WK PDF CC 2022-05-25 23:33:37 54.3 L/wk F L/WK/1.73 TOTAL 2022-05-25 23:33:37 80.76 L/WK/B F L/WK/1.73 PDF 2022-05-25 23:33:37 41.61 L/WK/B F KT/V RESID (M) 2022-05-25 23:33:37 0.54 Kt/V F UREA CLR UR 2022-05-25 23:33:37 2.8 mL/min F BUN/CREAT 2022-05-25 23:33:37 5.5 Calc F 6.9-32.9 UREA CLR UR/BSA 2022-05-25 23:33:37 2.1 mL/min F 64.0-99.0 CRE CLR UR/BSA 2022-05-25 23:33:37 6 mL/min F 85.0-125.0 CRE CLR UR 2022-05-25 23:33:37 7 mL/min F 97.0-137.0 BUN/CREAT 2022-05-25 23:33:37 5.5 Calc F 6.9-32.9 UREA CLR UR/BSA 2022-05-25 23:33:37 2.1 mL/min F 64.0-99.0 CRE CLR UR/BSA 2022-05-25 23:33:37 6 mL/min F 85.0-125.0 UREA CLR UR 2022-05-25 23:33:37 2.8 mL/min F CRE CLR UR 2022-05-25 23:33:37 7 mL/min F 97.0-137.0 L/WK/1.73 RESID 2022-05-25 23:33:37 39.15 L/WK/B F L/WK PDF CC 2022-05-25 23:33:37 54.3 L/wk F L/WK/1.73 TOTAL 2022-05-25 23:33:37 80.76 L/WK/B F KT/V RESID (M) 2022-05-25 23:33:37 0.54 Kt/V F KT/V PDF (M) 2022-05-25 23:33:37 1.52 Kt/V F KT/V TOTAL (M) 2022-05-25 23:33:37 2.05 Kt/V F L/WK RESID CC 2022-05-25 23:33:37 51.09 L/wk F L/WK/1.73 PDF 2022-05-25 23:33:37 41.61 L/WK/B F Creatinine [Mass/volume] in Serum or Plasma 2022-05-25 23:33:20 5.98 mg/dL F 0.7-1.3 Urea nitrogen [Mass/volume] in Serum or Plasma 2022-05-25 23:33:20 33 mg/dL F 9.0-23.0 Urea nitrogen [Mass/volume] in Serum or Plasma 2022-05-25 23:33:20 33 mg/dL F 9.0-23.0 Creatinine [Mass/volume] in Serum or Plasma 2022-05-25 23:33:20 5.98 mg/dL F 0.7-1.3 NPCR PD MALE 2022-05-25 19:49:43 0.53 G/KG/D F Urea Gen Rate 2022-05-25 19:49:43 7.6 GM/D F PCR PD MALE 2022-05-25 19:49:43 48 g/day F nPNA (PD MALE) 2022-05-25 19:49:43 0.59 G/KG/D F PNA (PD) 2022-05-25 19:49:43 53.5 g/day F Urea Gen Rate 2022-05-25 19:49:43 7.6 GM/D F NPCR PD MALE 2022-05-25 19:49:43 0.53 G/KG/D F PNA (PD) 2022-05-25 19:49:43 53.5 g/day F nPNA (PD MALE) 2022-05-25 19:49:43 0.59 G/KG/D F PCR PD MALE 2022-05-25 19:49:43 48 g/day F Creatinine [Mass/volume] in Urine 2022-05-25 19:49:11 105.25 mg/dL F Urea nitrogen [Mass/volume] in Urine 2022-05-25 19:49:11 222 mg/dL F Creatinine [Mass/volume] in Urine 2022-05-25 19:49:11 105.25 mg/dL F Urea nitrogen [Mass/volume] in Urine 2022-05-25 19:49:11 222 mg/dL F BSA TOBIN 2022-05-25 19:17:03 2.26 sq m F TBW ANGELA MALE 2022-05-25 19:17:03 52.58 Liters F BSA TOBIN 2022-05-25 19:17:03 2.26 sq m F TBW ANGELA MALE 2022-05-25 19:17:03 52.58 Liters F Creatinine [Mass/volume] in Peritoneal dialysis fluid 2022-05-25 19:16:19 3.21 mg/dL F Urea nitrogen [Mass/volume] in Peritoneal fluid --24 hours post peritoneal dialysis 2022-05-25 19:16:19 26 mg/dL F Creatinine [Mass/volume] in Peritoneal dialysis fluid 2022-05-25 19:16:19 3.21 mg/dL F Urea nitrogen [Mass/volume] in Peritoneal fluid --24 hours post peritoneal dialysis 2022-05-25 19:16:19 26 mg/dL F BODY WEIGHT (LBS) 2022-05-24 20:57:45 246 lbs F AMPUTATE FACTOR 2022-05-24 20:57:45 0 F HEIGHT IN INCHES 2022-05-24 20:57:45 69 Inches F PATIENT AGE 2022-05-24 20:57:45 67 Years F PATIENT AGE 2022-05-24 20:57:45 67 Years F BODY WEIGHT (LBS) 2022-05-24 20:57:45 246 lbs F HEIGHT IN INCHES 2022-05-24 20:57:45 69 Inches F AMPUTATE FACTOR 2022-05-24 20:57:45 0 F MINIMUM GOAL: KT/V PD 2022-05-24 20:57:45 1.7 F Total Volume of EFFL/DIAL 2022-05-24 20:57:45 06536 mLs F Total Volume of EFFL/DIAL 2022-05-24 20:57:45 21034 mLs F MINIMUM GOAL: KT/V PD 2022-05-24 20:57:45 1.7 F COLLECTION TIME FOR URINE 2022-05-24 20:57:45 1440 min F TOTAL VOLUME-24 HR URINE 2022-05-24 20:57:45 600 mL F TOTAL VOLUME-24 HR URINE 2022-05-24 20:57:45 600 mL F COLLECTION TIME FOR URINE 2022-05-24 20:57:45 1440 min F BUN/CREAT 2022-04-24 21:50:59 6.3 Calc F 6.9-32.9 Creatinine [Mass/volume] in Serum or Plasma 2022-04-24 21:50:18 5.56 mg/dL F 0.7-1.3 Urea nitrogen [Mass/volume] in Serum or Plasma 2022-04-24 21:50:18 35 mg/dL F 9.0-23.0 BUN/CREAT 2022-04-02 16:29:00 5.6 Calc F 6.9-32.9 Creatinine [Mass/volume] in Serum or Plasma 2022-04-02 16:28:53 5.67 mg/dL F 0.7-1.3 Urea nitrogen [Mass/volume] in Serum or Plasma 2022-04-02 16:28:53 32 mg/dL F 9.0-23.0 PCR PD MALE 2022-02-21 02:21:52 59 g/day F nPNA (PD MALE) 2022-02-21 02:21:52 0.73 G/KG/D F PNA (PD) 2022-02-21 02:21:52 65.8 g/day F Urea Gen Rate 2022-02-21 02:21:52 10 GM/D F NPCR PD MALE 2022-02-21 02:21:52 0.65 G/KG/D F NPCR PD MALE 2022-02-21 02:21:52 0.65 G/KG/D F PCR PD MALE 2022-02-21 02:21:52 59 g/day F nPNA (PD MALE) 2022-02-21 02:21:52 0.73 G/KG/D F PNA (PD) 2022-02-21 02:21:52 65.8 g/day F Urea Gen Rate 2022-02-21 02:21:52 10 GM/D F L/WK PDF CC 2022-02-21 02:21:52 60.68 L/wk F L/WK/1.73 PDF 2022-02-21 02:21:52 46.58 L/WK/B F KT/V TOTAL (M) 2022-02-21 02:21:52 2.65 Kt/V F L/WK/1.73 TOTAL 2022-02-21 02:21:52 111.63 L/WK/B F KT/V PDF (M) 2022-02-21 02:21:52 1.69 Kt/V F L/WK/1.73 TOTAL 2022-02-21 02:21:52 111.63 L/WK/B F KT/V TOTAL (M) 2022-02-21 02:21:52 2.65 Kt/V F KT/V PDF (M) 2022-02-21 02:21:52 1.69 Kt/V F L/WK PDF CC 2022-02-21 02:21:52 60.68 L/wk F L/WK/1.73 PDF 2022-02-21 02:21:52 46.58 L/WK/B F Urea nitrogen [Mass/volume] in Peritoneal fluid --24 hours post peritoneal dialysis 2022-02-21 02:20:49 28 mg/dL F Urea nitrogen [Mass/volume] in Peritoneal fluid --24 hours post peritoneal dialysis 2022-02-21 02:20:49 28 mg/dL F Creatinine [Mass/volume] in Peritoneal dialysis fluid 2022-02-21 02:20:47 3.3 mg/dL F Creatinine [Mass/volume] in Peritoneal dialysis fluid 2022-02-21 02:20:47 3.3 mg/dL F L/WK/1.73 RESID 2022-02-21 01:20:58 65.05 L/WK/B F L/WK RESID CC 2022-02-21 01:20:58 84.74 L/wk F UREA CLR UR 2022-02-21 01:20:58 5 mL/min F KT/V RESID (M) 2022-02-21 01:20:58 0.96 Kt/V F BUN/CREAT 2022-02-21 01:20:58 5.8 Calc F 6.9-32.9 UREA CLR UR/BSA 2022-02-21 01:20:58 3.8 mL/min F 64.0-99.0 CRE CLR UR/BSA 2022-02-21 01:20:58 9 mL/min F 85.0-125.0 CRE CLR UR 2022-02-21 01:20:58 12 mL/min F 97.0-137.0 UREA CLR UR/BSA 2022-02-21 01:20:58 3.8 mL/min F 64.0-99.0 CRE CLR UR/BSA 2022-02-21 01:20:58 9 mL/min F 85.0-125.0 CRE CLR UR 2022-02-21 01:20:58 12 mL/min F 97.0-137.0 KT/V RESID (M) 2022-02-21 01:20:58 0.96 Kt/V F BUN/CREAT 2022-02-21 01:20:58 5.8 Calc F 6.9-32.9 UREA CLR UR 2022-02-21 01:20:58 5 mL/min F L/WK/1.73 RESID 2022-02-21 01:20:58 65.05 L/WK/B F L/WK RESID CC 2022-02-21 01:20:58 84.74 L/wk F Creatinine [Mass/volume] in Serum or Plasma 2022-02-21 01:19:54 5.85 mg/dL F 0.7-1.3 Urea nitrogen [Mass/volume] in Serum or Plasma 2022-02-21 01:19:54 34 mg/dL F 9.0-23.0 Urea nitrogen [Mass/volume] in Serum or Plasma 2022-02-21 01:19:54 34 mg/dL F 9.0-23.0 Creatinine [Mass/volume] in Serum or Plasma 2022-02-21 01:19:54 5.85 mg/dL F 0.7-1.3 TBW MILLER MALE 2022-02-21 01:00:53 52.43 Liters F BSA TOBIN 2022-02-21 01:00:53 2.25 sq m F BSA TOBIN 2022-02-21 01:00:53 2.25 sq m F TBW MILLER MALE 2022-02-21 01:00:53 52.43 Liters F Creatinine [Mass/volume] in Urine 2022-02-21 00:59:48 76.6 mg/dL F Urea nitrogen [Mass/volume] in Urine 2022-02-21 00:59:48 188 mg/dL F Urea nitrogen [Mass/volume] in Urine 2022-02-21 00:59:48 188 mg/dL F Creatinine [Mass/volume] in Urine 2022-02-21 00:59:48 76.6 mg/dL F MINIMUM GOAL: KT/V PD 2022-02-19 21:37:00 1.7 F Total Volume of EFFL/DIAL 2022-02-19 21:37:00 61147 mLs F MINIMUM GOAL: KT/V PD 2022-02-19 21:37:00 1.7 F Total Volume of EFFL/DIAL 2022-02-19 21:37:00 16572 mLs F BODY WEIGHT (LBS) 2022-02-19 21:37:00 245 lbs F COLLECTION TIME FOR URINE 2022-02-19 21:37:00 1440 min F AMPUTATE FACTOR 2022-02-19 21:37:00 0 F TOTAL VOLUME-24 HR URINE 2022-02-19 21:37:00 1300 mL F HEIGHT IN INCHES 2022-02-19 21:37:00 69 Inches F PATIENT AGE 2022-02-19 21:37:00 67 Years F COLLECTION TIME FOR URINE 2022-02-19 21:37:00 1440 min F TOTAL VOLUME-24 HR URINE 2022-02-19 21:37:00 1300 mL F PATIENT AGE 2022-02-19 21:37:00 67 Years F HEIGHT IN INCHES 2022-02-19 21:37:00 69 Inches F BODY WEIGHT (LBS) 2022-02-19 21:37:00 245 lbs F AMPUTATE FACTOR 2022-02-19 21:37:00 0 F Anemia Description Draw Date Result/Unit Status Ref Range Result Comments IRON SATURATION 2024-03-07 09:48:25 32 % F 21.0-49.0 TIBC 2024-03-07 09:48:25 222 ug/dL F 250.0-425.0 IRON SATURATION 2024-03-07 09:48:25 32 % F 21.0-49.0 TIBC 2024-03-07 09:48:25 222 ug/dL F 250.0-425.0 Ferritin [Mass/volume] in Serum or Plasma 2024-03-07 08:23:18 533 ng/mL F 22.0-322.0 Ferritin [Mass/volume] in Serum or Plasma 2024-03-07 08:23:18 533 ng/mL F 22.0-322.0 Iron binding capacity.unsaturate d [Mass/volume] in Serum or Plasma 2024-03-07 06:46:32 150 ug/dL F 75.0-360.0 Iron [Mass/volume] in Serum or Plasma 2024-03-07 06:46:32 72 ug/dL F 65.0-175.0 Iron [Mass/volume] in Serum or Plasma 2024-03-07 06:46:32 72 ug/dL F 65.0-175.0 Iron binding capacity.unsaturate d [Mass/volume] in Serum or Plasma 2024-03-07 06:46:32 150 ug/dL F 75.0-360.0 HCT CALC HGBX3 2024-03-07 03:10:02 30.6 % F 42.0-52.0 HCT CALC HGBX3 2024-03-07 03:10:02 30.6 % F 42.0-52.0 Erythrocyte distribution width [Ratio] by Automated count 2024-03-07 03:08:24 16.1 % F 11.0-15.0 Reticulocytes/100 erythrocytes in Blood by Automated count 2024-03-07 03:08:24 1.73 % F 0.7-2.5 MCH [Entitic mass] by Automated count 2024-03-07 03:08:24 31.2 pg F 25.9-34.2 MCHC [Mass/volume] by Automated count 2024-03-07 03:08:24 32.9 g/dL F 29.6-35.3 Hemoglobin [Mass/volume] in Blood 2024-03-07 03:08:24 10.2 g/dL F 14.0-18.0 MCV [Entitic volume] by Automated count 2024-03-07 03:08:24 94.7 fL F 80.0-100.0 Erythrocytes [#/volume] in Blood by Automated count 2024-03-07 03:08:24 3.27 x 10^6 cells/uL F 4.6-6.2 Hematocrit [Volume Fraction] of Blood by Automated count 2024-03-07 03:08:24 31 % F 41.0-53.0 Platelets [#/volume] in Blood by Automated count 2024-03-07 03:08:24 192 x 10^3 cells/uL F 140.0-450.0 Erythrocyte distribution width [Ratio] by Automated count 2024-03-07 03:08:24 16.1 % F 11.0-15.0 Erythrocytes [#/volume] in Blood by Automated count 2024-03-07 03:08:24 3.27 x 10^6 cells/uL F 4.6-6.2 Platelets [#/volume] in Blood by Automated count 2024-03-07 03:08:24 192 x 10^3 cells/uL F 140.0-450.0 Hematocrit [Volume Fraction] of Blood by Automated count 2024-03-07 03:08:24 31 % F 41.0-53.0 Hemoglobin [Mass/volume] in Blood 2024-03-07 03:08:24 10.2 g/dL F 14.0-18.0 MCV [Entitic volume] by Automated count 2024-03-07 03:08:24 94.7 fL F 80.0-100.0 MCHC [Mass/volume] by Automated count 2024-03-07 03:08:24 32.9 g/dL F 29.6-35.3 MCH [Entitic mass] by Automated count 2024-03-07 03:08:24 31.2 pg F 25.9-34.2 Reticulocytes/100 erythrocytes in Blood by Automated count 2024-03-07 03:08:24 1.73 % F 0.7-2.5 IRON SATURATION 2024-01-29 09:09:00 18 % F 21.0-49.0 TIBC 2024-01-29 09:09:00 257 ug/dL F 250.0-425.0 Iron [Mass/volume] in Serum or Plasma 2024-01-29 08:04:30 46 ug/dL F 65.0-175.0 Iron binding capacity.unsaturate d [Mass/volume] in Serum or Plasma 2024-01-29 08:04:30 211 ug/dL F 75.0-360.0 Ferritin [Mass/volume] in Serum or Plasma 2024-01-29 07:36:22 357 ng/mL F 22.0-322.0 HCT CALC HGBX3 2024-01-29 00:29:27 32.4 % F 42.0-52.0 MCH [Entitic mass] by Automated count 2024-01-29 00:28:26 30.8 pg F 25.9-34.2 MCHC [Mass/volume] by Automated count 2024-01-29 00:28:26 31.9 g/dL F 29.6-35.3 Reticulocytes/100 erythrocytes in Blood by Automated count 2024-01-29 00:28:24 2.43 % F 0.7-2.5 Erythrocytes [#/volume] in Blood by Automated count 2024-01-29 00:28:24 3.5 x 10'6 cells/uL F 4.6-6.2 Erythrocyte distribution width [Ratio] by Automated count 2024-01-29 00:28:24 17.2 % F 11.0-15.0 Hemoglobin [Mass/volume] in Blood 2024-01-29 00:28:24 10.8 g/dL F 14.0-18.0 Hematocrit [Volume Fraction] of Blood by Automated count 2024-01-29 00:28:24 33.9 % F 41.0-53.0 MCV [Entitic volume] by Automated count 2024-01-29 00:28:24 96.8 fL F 80.0-100.0 Platelets [#/volume] in Blood by Automated count 2024-01-29 00:28:24 164 x 10^3 cells/uL F 140.0-450.0 IRON SATURATION 2024-01-01 08:52:09 27 % F 21.0-49.0 TIBC 2024-01-01 08:52:09 251 ug/dL F 250.0-425.0 IRON SATURATION 2024-01-01 08:52:09 27 % F 21.0-49.0 TIBC 2024-01-01 08:52:09 251 ug/dL F 250.0-425.0 Iron binding capacity.unsaturate d [Mass/volume] in Serum or Plasma 2024-01-01 07:50:11 182 ug/dL F 75.0-360.0 Iron [Mass/volume] in Serum or Plasma 2024-01-01 07:50:11 69 ug/dL F 65.0-175.0 Iron [Mass/volume] in Serum or Plasma 2024-01-01 07:50:11 69 ug/dL F 65.0-175.0 Iron binding capacity.unsaturate d [Mass/volume] in Serum or Plasma 2024-01-01 07:50:11 182 ug/dL F 75.0-360.0 HCT CALC HGBX3 2024-01-01 04:53:16 29.1 % F 42.0-52.0 HCT CALC HGBX3 2024-01-01 04:53:16 29.1 % F 42.0-52.0 Erythrocytes [#/volume] in Blood by Automated count 2024-01-01 04:52:13 3.07 x 10'6 cells/uL F 4.6-6.2 MCV [Entitic volume] by Automated count 2024-01-01 04:52:13 98.9 fL F 80.0-100.0 MCHC [Mass/volume] by Automated count 2024-01-01 04:52:13 31.9 g/dL F 29.6-35.3 Erythrocyte distribution width [Ratio] by Automated count 2024-01-01 04:52:13 16 % F 11.0-15.0 Hematocrit [Volume Fraction] of Blood by Automated count 2024-01-01 04:52:13 30.3 % F 41.0-53.0 Hemoglobin [Mass/volume] in Blood 2024-01-01 04:52:13 9.7 g/dL F 14.0-18.0 MCH [Entitic mass] by Automated count 2024-01-01 04:52:13 31.6 pg F 25.9-34.2 Platelets [#/volume] in Blood by Automated count 2024-01-01 04:52:13 158 x 10^3 cells/uL F 140.0-450.0 Reticulocytes/100 erythrocytes in Blood by Automated count 2024-01-01 04:52:13 1.69 % F 0.7-2.5 Reticulocytes/100 erythrocytes in Blood by Automated count 2024-01-01 04:52:13 1.69 % F 0.7-2.5 Erythrocytes [#/volume] in Blood by Automated count 2024-01-01 04:52:13 3.07 x 10'6 cells/uL F 4.6-6.2 Erythrocyte distribution width [Ratio] by Automated count 2024-01-01 04:52:13 16 % F 11.0-15.0 Hemoglobin [Mass/volume] in Blood 2024-01-01 04:52:13 9.7 g/dL F 14.0-18.0 MCH [Entitic mass] by Automated count 2024-01-01 04:52:13 31.6 pg F 25.9-34.2 MCHC [Mass/volume] by Automated count 2024-01-01 04:52:13 31.9 g/dL F 29.6-35.3 Hematocrit [Volume Fraction] of Blood by Automated count 2024-01-01 04:52:13 30.3 % F 41.0-53.0 Platelets [#/volume] in Blood by Automated count 2024-01-01 04:52:13 158 x 10^3 cells/uL F 140.0-450.0 MCV [Entitic volume] by Automated count 2024-01-01 04:52:13 98.9 fL F 80.0-100.0 Ferritin [Mass/volume] in Serum or Plasma 2024-01-01 01:53:03 F Recollect - Quantity not sufficient Ferritin [Mass/volume] in Serum or Plasma 2024-01-01 01:53:03 F Recollect - Quantity not sufficient Ferritin [Mass/volume] in Serum or Plasma 2023-11-20 07:41:59 489 ng/mL F 22.0-322.0 IRON SATURATION 2023-11-20 05:05:23 19 % F 21.0-49.0 TIBC 2023-11-20 05:05:23 252 ug/dL F 250.0-425.0 Iron [Mass/volume] in Serum or Plasma 2023-11-20 04:55:05 48 ug/dL F 65.0-175.0 Iron binding capacity.unsaturate d [Mass/volume] in Serum or Plasma 2023-11-20 04:55:05 204 ug/dL F 75.0-360.0 HCT CALC HGBX3 2023-11-19 22:37:32 27.3 % F 42.0-52.0 Reticulocytes/100 erythrocytes in Blood by Automated count 2023-11-19 22:37:12 4.05 % F 0.7-2.5 Erythrocytes [#/volume] in Blood by Automated count 2023-11-19 22:37:12 2.94 x 10'6 cells/uL F 4.6-6.2 Erythrocyte distribution width [Ratio] by Automated count 2023-11-19 22:37:12 17 % F 11.0-15.0 Hemoglobin [Mass/volume] in Blood 2023-11-19 22:37:12 9.1 g/dL F 14.0-18.0 Hematocrit [Volume Fraction] of Blood by Automated count 2023-11-19 22:37:12 28.7 % F 41.0-53.0 MCH [Entitic mass] by Automated count 2023-11-19 22:37:12 31 pg F 25.9-34.2 MCHC [Mass/volume] by Automated count 2023-11-19 22:37:12 31.8 g/dL F 29.6-35.3 MCV [Entitic volume] by Automated count 2023-11-19 22:37:12 97.5 fL F 80.0-100.0 Platelets [#/volume] in Blood by Automated count 2023-11-19 22:37:12 181 x 10^3 cells/uL F 140.0-450.0 Ferritin [Mass/volume] in Serum or Plasma 2023-10-24 07:22:42 598 ng/mL F 22.0-322.0 Ferritin [Mass/volume] in Serum or Plasma 2023-10-24 07:22:42 598 ng/mL F 22.0-322.0 IRON SATURATION 2023-10-24 05:40:37 24 % F 21.0-49.0 TIBC 2023-10-24 05:40:37 237 ug/dL F 250.0-425.0 IRON SATURATION 2023-10-24 05:40:37 24 % F 21.0-49.0 TIBC 2023-10-24 05:40:37 237 ug/dL F 250.0-425.0 Iron [Mass/volume] in Serum or Plasma 2023-10-24 05:37:42 58 ug/dL F 65.0-175.0 Iron binding capacity.unsaturate d [Mass/volume] in Serum or Plasma 2023-10-24 05:37:42 179 ug/dL F 75.0-360.0 Iron [Mass/volume] in Serum or Plasma 2023-10-24 05:37:42 58 ug/dL F 65.0-175.0 Iron binding capacity.unsaturate d [Mass/volume] in Serum or Plasma 2023-10-24 05:37:42 179 ug/dL F 75.0-360.0 HCT CALC HGBX3 2023-10-23 23:03:24 28.5 % F 42.0-52.0 HCT CALC HGBX3 2023-10-23 23:03:24 28.5 % F 42.0-52.0 MCH [Entitic mass] by Automated count 2023-10-23 23:02:22 31.2 pg F 25.9-34.2 MCHC [Mass/volume] by Automated count 2023-10-23 23:02:22 31.6 g/dL F 29.6-35.3 Platelets [#/volume] in Blood by Automated count 2023-10-23 23:02:22 191 x 10^3 cells/uL F 140.0-450.0 Erythrocyte distribution width [Ratio] by Automated count 2023-10-23 23:02:22 16.4 % F 11.0-15.0 Erythrocytes [#/volume] in Blood by Automated count 2023-10-23 23:02:22 3.05 x 10'6 cells/uL F 4.6-6.2 Hematocrit [Volume Fraction] of Blood by Automated count 2023-10-23 23:02:22 30.1 % F 41.0-53.0 Hemoglobin [Mass/volume] in Blood 2023-10-23 23:02:22 9.5 g/dL F 14.0-18.0 MCV [Entitic volume] by Automated count 2023-10-23 23:02:22 98.5 fL F 80.0-100.0 Reticulocytes/100 erythrocytes in Blood by Automated count 2023-10-23 23:02:22 2.27 % F 0.7-2.5 Reticulocytes/100 erythrocytes in Blood by Automated count 2023-10-23 23:02:22 2.27 % F 0.7-2.5 Erythrocytes [#/volume] in Blood by Automated count 2023-10-23 23:02:22 3.05 x 10'6 cells/uL F 4.6-6.2 Erythrocyte distribution width [Ratio] by Automated count 2023-10-23 23:02:22 16.4 % F 11.0-15.0 Hemoglobin [Mass/volume] in Blood 2023-10-23 23:02:22 9.5 g/dL F 14.0-18.0 MCH [Entitic mass] by Automated count 2023-10-23 23:02:22 31.2 pg F 25.9-34.2 MCHC [Mass/volume] by Automated count 2023-10-23 23:02:22 31.6 g/dL F 29.6-35.3 Hematocrit [Volume Fraction] of Blood by Automated count 2023-10-23 23:02:22 30.1 % F 41.0-53.0 MCV [Entitic volume] by Automated count 2023-10-23 23:02:22 98.5 fL F 80.0-100.0 Platelets [#/volume] in Blood by Automated count 2023-10-23 23:02:22 191 x 10^3 cells/uL F 140.0-450.0 IRON SATURATION 2023-09-26 07:18:00 25 % F 21.0-49.0 TIBC 2023-09-26 07:18:00 241 ug/dL F 250.0-425.0 IRON SATURATION 2023-09-26 07:18:00 25 % F 21.0-49.0 TIBC 2023-09-26 07:18:00 241 ug/dL F 250.0-425.0 HCT CALC HGBX3 2023-09-26 07:18:00 36.6 % F 42.0-52.0 HCT CALC HGBX3 2023-09-26 07:18:00 36.6 % F 42.0-52.0 Ferritin [Mass/volume] in Serum or Plasma 2023-09-26 07:12:41 614 ng/mL F 22.0-322.0 Ferritin [Mass/volume] in Serum or Plasma 2023-09-26 07:12:41 614 ng/mL F 22.0-322.0 Iron [Mass/volume] in Serum or Plasma 2023-09-25 23:13:10 60 ug/dL F 65.0-175.0 Iron binding capacity.unsaturate d [Mass/volume] in Serum or Plasma 2023-09-25 23:13:10 181 ug/dL F 75.0-360.0 Iron binding capacity.unsaturate d [Mass/volume] in Serum or Plasma 2023-09-25 23:13:10 181 ug/dL F 75.0-360.0 Iron [Mass/volume] in Serum or Plasma 2023-09-25 23:13:10 60 ug/dL F 65.0-175.0 Erythrocytes [#/volume] in Blood by Automated count 2023-09-25 13:33:39 3.91 x 10'6 cells/uL F 4.6-6.2 Erythrocyte distribution width [Ratio] by Automated count 2023-09-25 13:33:39 17.1 % F 11.0-15.0 Hemoglobin [Mass/volume] in Blood 2023-09-25 13:33:39 12.2 g/dL F 14.0-18.0 MCH [Entitic mass] by Automated count 2023-09-25 13:33:39 31.1 pg F 25.9-34.2 MCHC [Mass/volume] by Automated count 2023-09-25 13:33:39 32.1 g/dL F 29.6-35.3 Hematocrit [Volume Fraction] of Blood by Automated count 2023-09-25 13:33:39 38 % F 41.0-53.0 MCV [Entitic volume] by Automated count 2023-09-25 13:33:39 97.1 fL F 80.0-100.0 Platelets [#/volume] in Blood by Automated count 2023-09-25 13:33:39 172 x 10^3 cells/uL F 140.0-450.0 Erythrocyte distribution width [Ratio] by Automated count 2023-09-25 13:33:39 17.1 % F 11.0-15.0 Erythrocytes [#/volume] in Blood by Automated count 2023-09-25 13:33:39 3.91 x 10'6 cells/uL F 4.6-6.2 Hematocrit [Volume Fraction] of Blood by Automated count 2023-09-25 13:33:39 38 % F 41.0-53.0 MCHC [Mass/volume] by Automated count 2023-09-25 13:33:39 32.1 g/dL F 29.6-35.3 Platelets [#/volume] in Blood by Automated count 2023-09-25 13:33:39 172 x 10^3 cells/uL F 140.0-450.0 MCV [Entitic volume] by Automated count 2023-09-25 13:33:39 97.1 fL F 80.0-100.0 Hemoglobin [Mass/volume] in Blood 2023-09-25 13:33:39 12.2 g/dL F 14.0-18.0 MCH [Entitic mass] by Automated count 2023-09-25 13:33:39 31.1 pg F 25.9-34.2 Reticulocytes/100 erythrocytes in Blood by Automated count 2023-09-25 13:33:39 3.93 % F 0.7-2.5 Reticulocytes/100 erythrocytes in Blood by Automated count 2023-09-25 13:33:39 3.93 % F 0.7-2.5 IRON SATURATION 2023-08-27 07:09:55 25 % F 21.0-49.0 TIBC 2023-08-27 07:09:55 261 ug/dL F 250.0-425.0 Iron [Mass/volume] in Serum or Plasma 2023-08-27 07:06:48 64 ug/dL F 65.0-175.0 Iron binding capacity.unsaturate d [Mass/volume] in Serum or Plasma 2023-08-27 07:06:48 197 ug/dL F 75.0-360.0 HCT CALC HGBX3 2023-08-27 01:37:20 33.9 % F 42.0-52.0 Reticulocytes/100 erythrocytes in Blood by Automated count 2023-08-27 01:37:12 F CANCELED - TEST CANCELED,UNABLE TO REPORT DUE TO INTERFERRING SUBSTANCES Erythrocytes [#/volume] in Blood by Automated count 2023-08-27 01:36:52 3.57 x 10'6 cells/uL F 4.6-6.2 Erythrocyte distribution width [Ratio] by Automated count 2023-08-27 01:36:52 18.2 % F 11.0-15.0 Hemoglobin [Mass/volume] in Blood 2023-08-27 01:36:52 11.3 g/dL F 14.0-18.0 MCH [Entitic mass] by Automated count 2023-08-27 01:36:52 31.6 pg F 25.9-34.2 Hematocrit [Volume Fraction] of Blood by Automated count 2023-08-27 01:36:52 35.9 % F 41.0-53.0 MCHC [Mass/volume] by Automated count 2023-08-27 01:36:52 31.5 g/dL F 29.6-35.3 MCV [Entitic volume] by Automated count 2023-08-27 01:36:52 100.5 fL F 80.0-100.0 Platelets [#/volume] in Blood by Automated count 2023-08-27 01:36:52 148 x 10^3 cells/uL F 140.0-450.0 Ferritin [Mass/volume] in Serum or Plasma 2023-08-26 20:27:17 370 ng/mL F 22.0-322.0 IRON SATURATION 2023-07-25 06:48:06 22 % F 21.0-49.0 TIBC 2023-07-25 06:48:06 277 ug/dL F 250.0-425.0 Iron [Mass/volume] in Serum or Plasma 2023-07-25 06:41:05 61 ug/dL F 65.0-175.0 Iron binding capacity.unsaturate d [Mass/volume] in Serum or Plasma 2023-07-25 06:41:05 216 ug/dL F 75.0-360.0 Ferritin [Mass/volume] in Serum or Plasma 2023-07-25 03:52:10 439 ng/mL F 22.0-322.0 HCT CALC HGBX3 2023-07-24 22:30:01 28.5 % F 42.0-52.0 Reticulocytes/100 erythrocytes in Blood by Automated count 2023-07-24 22:29:42 6.37 % F 0.7-2.5 Erythrocytes [#/volume] in Blood by Automated count 2023-07-24 22:29:42 2.95 x 10'6 cells/uL F 4.6-6.2 Erythrocyte distribution width [Ratio] by Automated count 2023-07-24 22:29:42 16.4 % F 11.0-15.0 Hemoglobin [Mass/volume] in Blood 2023-07-24 22:29:42 9.5 g/dL F 14.0-18.0 MCHC [Mass/volume] by Automated count 2023-07-24 22:29:42 32.7 g/dL F 29.6-35.3 MCH [Entitic mass] by Automated count 2023-07-24 22:29:42 32.1 pg F 25.9-34.2 Hematocrit [Volume Fraction] of Blood by Automated count 2023-07-24 22:29:42 28.9 % F 41.0-53.0 MCV [Entitic volume] by Automated count 2023-07-24 22:29:42 98.3 fL F 80.0-100.0 Platelets [#/volume] in Blood by Automated count 2023-07-24 22:29:42 142 x 10^3 cells/uL F 140.0-450.0 IRON SATURATION 2023-06-29 01:31:07 36 % F 21.0-49.0 TIBC 2023-06-29 01:31:07 250 ug/dL F 250.0-425.0 IRON SATURATION 2023-06-29 01:31:07 36 % F 21.0-49.0 TIBC 2023-06-29 01:31:07 250 ug/dL F 250.0-425.0 Iron binding capacity.unsaturate d [Mass/volume] in Serum or Plasma 2023-06-29 01:29:15 160 ug/dL F 75.0-360.0 Iron [Mass/volume] in Serum or Plasma 2023-06-29 01:29:15 90 ug/dL F 65.0-175.0 Iron binding capacity.unsaturate d [Mass/volume] in Serum or Plasma 2023-06-29 01:29:15 160 ug/dL F 75.0-360.0 Iron [Mass/volume] in Serum or Plasma 2023-06-29 01:29:15 90 ug/dL F 65.0-175.0 Ferritin [Mass/volume] in Serum or Plasma 2023-06-28 19:07:26 466 ng/mL F 22.0-322.0 Ferritin [Mass/volume] in Serum or Plasma 2023-06-28 19:07:26 466 ng/mL F 22.0-322.0 HCT CALC HGBX3 2023-06-28 15:14:37 28.5 % F 42.0-52.0 HCT CALC HGBX3 2023-06-28 15:14:37 28.5 % F 42.0-52.0 Reticulocytes/100 erythrocytes in Blood by Automated count 2023-06-28 15:13:34 1.75 % F 0.7-2.5 Erythrocytes [#/volume] in Blood by Automated count 2023-06-28 15:13:34 2.97 x 10'6 cells/uL F 4.6-6.2 Erythrocyte distribution width [Ratio] by Automated count 2023-06-28 15:13:34 15.7 % F 11.0-15.0 Hemoglobin [Mass/volume] in Blood 2023-06-28 15:13:34 9.5 g/dL F 14.0-18.0 MCH [Entitic mass] by Automated count 2023-06-28 15:13:34 32 pg F 25.9-34.2 MCHC [Mass/volume] by Automated count 2023-06-28 15:13:34 32.8 g/dL F 29.6-35.3 Hematocrit [Volume Fraction] of Blood by Automated count 2023-06-28 15:13:34 29 % F 41.0-53.0 MCV [Entitic volume] by Automated count 2023-06-28 15:13:34 97.7 fL F 80.0-100.0 Platelets [#/volume] in Blood by Automated count 2023-06-28 15:13:34 156 x 10^3 cells/uL F 140.0-450.0 MCV [Entitic volume] by Automated count 2023-06-28 15:13:34 97.7 fL F 80.0-100.0 MCH [Entitic mass] by Automated count 2023-06-28 15:13:34 32 pg F 25.9-34.2 Reticulocytes/100 erythrocytes in Blood by Automated count 2023-06-28 15:13:34 1.75 % F 0.7-2.5 MCHC [Mass/volume] by Automated count 2023-06-28 15:13:34 32.8 g/dL F 29.6-35.3 Hematocrit [Volume Fraction] of Blood by Automated count 2023-06-28 15:13:34 29 % F 41.0-53.0 Erythrocytes [#/volume] in Blood by Automated count 2023-06-28 15:13:34 2.97 x 10'6 cells/uL F 4.6-6.2 Platelets [#/volume] in Blood by Automated count 2023-06-28 15:13:34 156 x 10^3 cells/uL F 140.0-450.0 Hemoglobin [Mass/volume] in Blood 2023-06-28 15:13:34 9.5 g/dL F 14.0-18.0 Erythrocyte distribution width [Ratio] by Automated count 2023-06-28 15:13:34 15.7 % F 11.0-15.0 IRON SATURATION 2023-05-24 07:49:48 24 % F 21.0-49.0 TIBC 2023-05-24 07:49:48 214 ug/dL F 250.0-425.0 TIBC 2023-05-24 07:49:48 214 ug/dL F 250.0-425.0 IRON SATURATION 2023-05-24 07:49:48 24 % F 21.0-49.0 Iron binding capacity.unsaturate d [Mass/volume] in Serum or Plasma 2023-05-24 07:48:36 162 ug/dL F 75.0-360.0 Iron [Mass/volume] in Serum or Plasma 2023-05-24 07:48:36 52 ug/dL F 65.0-175.0 Iron [Mass/volume] in Serum or Plasma 2023-05-24 07:48:36 52 ug/dL F 65.0-175.0 Iron binding capacity.unsaturate d [Mass/volume] in Serum or Plasma 2023-05-24 07:48:36 162 ug/dL F 75.0-360.0 Ferritin [Mass/volume] in Serum or Plasma 2023-05-23 03:10:41 535 ng/mL F 22.0-322.0 Ferritin [Mass/volume] in Serum or Plasma 2023-05-23 03:10:41 535 ng/mL F 22.0-322.0 HCT CALC HGBX3 2023-05-22 19:51:18 35.4 % F 42.0-52.0 HCT CALC HGBX3 2023-05-22 19:51:18 35.4 % F 42.0-52.0 Erythrocytes [#/volume] in Blood by Automated count 2023-05-22 19:50:44 3.7 x 10'6 cells/uL F 4.6-6.2 Hemoglobin [Mass/volume] in Blood 2023-05-22 19:50:44 11.8 g/dL F 14.0-18.0 Hematocrit [Volume Fraction] of Blood by Automated count 2023-05-22 19:50:44 35.5 % F 41.0-53.0 Hematocrit [Volume Fraction] of Blood by Automated count 2023-05-22 19:50:44 35.5 % F 41.0-53.0 Erythrocytes [#/volume] in Blood by Automated count 2023-05-22 19:50:44 3.7 x 10'6 cells/uL F 4.6-6.2 Hemoglobin [Mass/volume] in Blood 2023-05-22 19:50:44 11.8 g/dL F 14.0-18.0 Reticulocytes/100 erythrocytes in Blood by Automated count 2023-05-22 19:50:42 2.29 % F 0.7-2.5 Erythrocyte distribution width [Ratio] by Automated count 2023-05-22 19:50:42 15.6 % F 11.0-15.0 MCHC [Mass/volume] by Automated count 2023-05-22 19:50:42 33.4 g/dL F 29.6-35.3 MCH [Entitic mass] by Automated count 2023-05-22 19:50:42 32 pg F 25.9-34.2 MCV [Entitic volume] by Automated count 2023-05-22 19:50:42 95.8 fL F 80.0-100.0 Platelets [#/volume] in Blood by Automated count 2023-05-22 19:50:42 136 x 10^3 cells/uL F 140.0-450.0 Erythrocyte distribution width [Ratio] by Automated count 2023-05-22 19:50:42 15.6 % F 11.0-15.0 MCH [Entitic mass] by Automated count 2023-05-22 19:50:42 32 pg F 25.9-34.2 Platelets [#/volume] in Blood by Automated count 2023-05-22 19:50:42 136 x 10^3 cells/uL F 140.0-450.0 MCHC [Mass/volume] by Automated count 2023-05-22 19:50:42 33.4 g/dL F 29.6-35.3 MCV [Entitic volume] by Automated count 2023-05-22 19:50:42 95.8 fL F 80.0-100.0 Reticulocytes/100 erythrocytes in Blood by Automated count 2023-05-22 19:50:42 2.29 % F 0.7-2.5 Ferritin [Mass/volume] in Serum or Plasma 2023-04-26 05:21:06 639 ng/mL F 22.0-322.0 Ferritin [Mass/volume] in Serum or Plasma 2023-04-26 05:21:06 639 ng/mL F 22.0-322.0 HCT CALC HGBX3 2023-04-25 14:17:24 33.3 % F 42.0-52.0 HCT CALC HGBX3 2023-04-25 14:17:24 33.3 % F 42.0-52.0 Reticulocytes/100 erythrocytes in Blood by Automated count 2023-04-25 14:17:04 1.27 % F 0.7-2.5 Platelets [#/volume] in Blood by Automated count 2023-04-25 14:17:04 158 x 10^3 cells/uL F 140.0-450.0 Platelets [#/volume] in Blood by Automated count 2023-04-25 14:17:04 158 x 10^3 cells/uL F 140.0-450.0 Reticulocytes/100 erythrocytes in Blood by Automated count 2023-04-25 14:17:04 1.27 % F 0.7-2.5 Erythrocytes [#/volume] in Blood by Automated count 2023-04-25 14:17:02 3.35 x 10'6 cells/uL F 4.6-6.2 Erythrocyte distribution width [Ratio] by Automated count 2023-04-25 14:17:02 15.8 % F 11.0-15.0 Hemoglobin [Mass/volume] in Blood 2023-04-25 14:17:02 11.1 g/dL F 14.0-18.0 MCH [Entitic mass] by Automated count 2023-04-25 14:17:02 33.1 pg F 25.9-34.2 Hematocrit [Volume Fraction] of Blood by Automated count 2023-04-25 14:17:02 33.9 % F 41.0-53.0 MCHC [Mass/volume] by Automated count 2023-04-25 14:17:02 32.7 g/dL F 29.6-35.3 MCV [Entitic volume] by Automated count 2023-04-25 14:17:02 101.2 fL F 80.0-100.0 MCHC [Mass/volume] by Automated count 2023-04-25 14:17:02 32.7 g/dL F 29.6-35.3 Erythrocyte distribution width [Ratio] by Automated count 2023-04-25 14:17:02 15.8 % F 11.0-15.0 Erythrocytes [#/volume] in Blood by Automated count 2023-04-25 14:17:02 3.35 x 10'6 cells/uL F 4.6-6.2 Hematocrit [Volume Fraction] of Blood by Automated count 2023-04-25 14:17:02 33.9 % F 41.0-53.0 Hemoglobin [Mass/volume] in Blood 2023-04-25 14:17:02 11.1 g/dL F 14.0-18.0 MCV [Entitic volume] by Automated count 2023-04-25 14:17:02 101.2 fL F 80.0-100.0 MCH [Entitic mass] by Automated count 2023-04-25 14:17:02 33.1 pg F 25.9-34.2 IRON SATURATION 2023-04-25 08:37:33 36 % F 21.0-49.0 TIBC 2023-04-25 08:37:33 198 ug/dL F 250.0-425.0 IRON SATURATION 2023-04-25 08:37:33 36 % F 21.0-49.0 TIBC 2023-04-25 08:37:33 198 ug/dL F 250.0-425.0 Iron binding capacity.unsaturate d [Mass/volume] in Serum or Plasma 2023-04-25 08:14:24 127 ug/dL F 75.0-360.0 Iron [Mass/volume] in Serum or Plasma 2023-04-25 08:14:24 71 ug/dL F 65.0-175.0 Iron [Mass/volume] in Serum or Plasma 2023-04-25 08:14:24 71 ug/dL F 65.0-175.0 Iron binding capacity.unsaturate d [Mass/volume] in Serum or Plasma 2023-04-25 08:14:24 127 ug/dL F 75.0-360.0 Ferritin [Mass/volume] in Serum or Plasma 2023-04-04 07:58:27 1283 ng/mL F 22.0-322.0 HCT CALC HGBX3 2023-04-04 04:19:13 38.7 % F 42.0-52.0 Reticulocytes/100 erythrocytes in Blood by Automated count 2023-04-04 04:18:44 1.06 % F 0.7-2.5 Erythrocytes [#/volume] in Blood by Automated count 2023-04-04 04:18:44 3.95 x 10'6 cells/uL F 4.6-6.2 Hemoglobin [Mass/volume] in Blood 2023-04-04 04:18:44 12.9 g/dL F 14.0-18.0 Erythrocyte distribution width [Ratio] by Automated count 2023-04-04 04:18:44 15.3 % F 11.0-15.0 MCH [Entitic mass] by Automated count 2023-04-04 04:18:44 32.7 pg F 25.9-34.2 MCHC [Mass/volume] by Automated count 2023-04-04 04:18:44 33.1 g/dL F 29.6-35.3 Hematocrit [Volume Fraction] of Blood by Automated count 2023-04-04 04:18:44 39 % F 41.0-53.0 MCV [Entitic volume] by Automated count 2023-04-04 04:18:44 98.7 fL F 80.0-100.0 Platelets [#/volume] in Blood by Automated count 2023-04-04 04:18:44 209 x 10^3 cells/uL F 140.0-450.0 IRON SATURATION 2023-04-03 22:31:27 37 % F 21.0-49.0 TIBC 2023-04-03 22:31:27 199 ug/dL F 250.0-425.0 Iron [Mass/volume] in Serum or Plasma 2023-04-03 22:25:13 74 ug/dL F 65.0-175.0 Iron binding capacity.unsaturate d [Mass/volume] in Serum or Plasma 2023-04-03 22:25:13 125 ug/dL F 75.0-360.0 IRON SATURATION 2023-02-27 08:23:53 29 % F 21.0-49.0 TIBC 2023-02-27 08:23:53 240 ug/dL F 250.0-425.0 IRON SATURATION 2023-02-27 08:23:53 29 % F 21.0-49.0 TIBC 2023-02-27 08:23:53 240 ug/dL F 250.0-425.0 Iron [Mass/volume] in Serum or Plasma 2023-02-27 08:20:25 69 ug/dL F 65.0-175.0 Iron binding capacity.unsaturate d [Mass/volume] in Serum or Plasma 2023-02-27 08:20:25 171 ug/dL F 75.0-360.0 Iron binding capacity.unsaturate d [Mass/volume] in Serum or Plasma 2023-02-27 08:20:25 171 ug/dL F 75.0-360.0 Iron [Mass/volume] in Serum or Plasma 2023-02-27 08:20:25 69 ug/dL F 65.0-175.0 Ferritin [Mass/volume] in Serum or Plasma 2023-02-26 22:13:43 702 ng/mL F 22.0-322.0 Ferritin [Mass/volume] in Serum or Plasma 2023-02-26 22:13:43 702 ng/mL F 22.0-322.0 HCT CALC HGBX3 2023-02-25 20:15:29 33.3 % F 42.0-52.0 HCT CALC HGBX3 2023-02-25 20:15:29 33.3 % F 42.0-52.0 Erythrocytes [#/volume] in Blood by Automated count 2023-02-25 20:15:23 3.37 x 10'6 cells/uL F 4.6-6.2 Hemoglobin [Mass/volume] in Blood 2023-02-25 20:15:23 11.1 g/dL F 14.0-18.0 Erythrocyte distribution width [Ratio] by Automated count 2023-02-25 20:15:23 16.5 % F 11.0-15.0 MCH [Entitic mass] by Automated count 2023-02-25 20:15:23 32.9 pg F 25.9-34.2 MCHC [Mass/volume] by Automated count 2023-02-25 20:15:23 33.2 g/dL F 29.6-35.3 Hematocrit [Volume Fraction] of Blood by Automated count 2023-02-25 20:15:23 33.4 % F 41.0-53.0 MCV [Entitic volume] by Automated count 2023-02-25 20:15:23 99.1 fL F 80.0-100.0 Erythrocytes [#/volume] in Blood by Automated count 2023-02-25 20:15:23 3.37 x 10'6 cells/uL F 4.6-6.2 Hematocrit [Volume Fraction] of Blood by Automated count 2023-02-25 20:15:23 33.4 % F 41.0-53.0 Hemoglobin [Mass/volume] in Blood 2023-02-25 20:15:23 11.1 g/dL F 14.0-18.0 MCHC [Mass/volume] by Automated count 2023-02-25 20:15:23 33.2 g/dL F 29.6-35.3 MCH [Entitic mass] by Automated count 2023-02-25 20:15:23 32.9 pg F 25.9-34.2 Erythrocyte distribution width [Ratio] by Automated count 2023-02-25 20:15:23 16.5 % F 11.0-15.0 MCV [Entitic volume] by Automated count 2023-02-25 20:15:23 99.1 fL F 80.0-100.0 Reticulocytes/100 erythrocytes in Blood by Automated count 2023-02-25 20:15:20 4.26 % F 0.7-2.5 Platelets [#/volume] in Blood by Automated count 2023-02-25 20:15:20 164 x 10^3 cells/uL F 140.0-450.0 Platelets [#/volume] in Blood by Automated count 2023-02-25 20:15:20 164 x 10^3 cells/uL F 140.0-450.0 Reticulocytes/100 erythrocytes in Blood by Automated count 2023-02-25 20:15:20 4.26 % F 0.7-2.5 Ferritin [Mass/volume] in Serum or Plasma 2023-01-22 07:16:44 692 ng/mL F 22.0-322.0 Ferritin [Mass/volume] in Serum or Plasma 2023-01-22 07:16:44 692 ng/mL F 22.0-322.0 HCT CALC HGBX3 2023-01-22 04:32:45 26.7 % F 42.0-52.0 HCT CALC HGBX3 2023-01-22 04:32:45 26.7 % F 42.0-52.0 Reticulocytes/100 erythrocytes in Blood by Automated count 2023-01-22 04:32:37 2.54 % F 0.7-2.5 Erythrocytes [#/volume] in Blood by Automated count 2023-01-22 04:32:37 2.71 x 10'6 cells/uL F 4.6-6.2 Erythrocyte distribution width [Ratio] by Automated count 2023-01-22 04:32:37 15.4 % F 11.0-15.0 Hemoglobin [Mass/volume] in Blood 2023-01-22 04:32:37 8.9 g/dL F 14.0-18.0 MCH [Entitic mass] by Automated count 2023-01-22 04:32:37 32.6 pg F 25.9-34.2 MCHC [Mass/volume] by Automated count 2023-01-22 04:32:37 33 g/dL F 29.6-35.3 Hematocrit [Volume Fraction] of Blood by Automated count 2023-01-22 04:32:37 26.8 % F 41.0-53.0 MCV [Entitic volume] by Automated count 2023-01-22 04:32:37 98.8 fL F 80.0-100.0 Platelets [#/volume] in Blood by Automated count 2023-01-22 04:32:37 163 x 10^3 cells/uL F 140.0-450.0 Erythrocyte distribution width [Ratio] by Automated count 2023-01-22 04:32:37 15.4 % F 11.0-15.0 Hematocrit [Volume Fraction] of Blood by Automated count 2023-01-22 04:32:37 26.8 % F 41.0-53.0 MCH [Entitic mass] by Automated count 2023-01-22 04:32:37 32.6 pg F 25.9-34.2 Platelets [#/volume] in Blood by Automated count 2023-01-22 04:32:37 163 x 10^3 cells/uL F 140.0-450.0 Reticulocytes/100 erythrocytes in Blood by Automated count 2023-01-22 04:32:37 2.54 % F 0.7-2.5 Erythrocytes [#/volume] in Blood by Automated count 2023-01-22 04:32:37 2.71 x 10'6 cells/uL F 4.6-6.2 MCHC [Mass/volume] by Automated count 2023-01-22 04:32:37 33 g/dL F 29.6-35.3 MCV [Entitic volume] by Automated count 2023-01-22 04:32:37 98.8 fL F 80.0-100.0 Hemoglobin [Mass/volume] in Blood 2023-01-22 04:32:37 8.9 g/dL F 14.0-18.0 IRON SATURATION 2023-01-22 04:07:41 30 % F 21.0-49.0 TIBC 2023-01-22 04:07:41 271 ug/dL F 250.0-425.0 IRON SATURATION 2023-01-22 04:07:41 30 % F 21.0-49.0 TIBC 2023-01-22 04:07:41 271 ug/dL F 250.0-425.0 Iron [Mass/volume] in Serum or Plasma 2023-01-22 04:01:20 81 ug/dL F 65.0-175.0 Iron binding capacity.unsaturate d [Mass/volume] in Serum or Plasma 2023-01-22 04:01:20 190 ug/dL F 75.0-360.0 Iron [Mass/volume] in Serum or Plasma 2023-01-22 04:01:20 81 ug/dL F 65.0-175.0 Iron binding capacity.unsaturate d [Mass/volume] in Serum or Plasma 2023-01-22 04:01:20 190 ug/dL F 75.0-360.0 IRON SATURATION 2022-12-28 06:25:36 29 % F 21.0-49.0 TIBC 2022-12-28 06:25:36 272 ug/dL F 250.0-425.0 Iron [Mass/volume] in Serum or Plasma 2022-12-28 06:21:37 79 ug/dL F 65.0-175.0 Iron binding capacity.unsaturate d [Mass/volume] in Serum or Plasma 2022-12-28 06:21:37 193 ug/dL F 75.0-360.0 Ferritin [Mass/volume] in Serum or Plasma 2022-12-28 02:33:08 911 ng/mL F 22.0-322.0 HCT CALC HGBX3 2022-12-27 20:08:58 25.5 % F 42.0-52.0 Reticulocytes/100 erythrocytes in Blood by Automated count 2022-12-27 20:08:41 2.34 % F 0.7-2.5 Erythrocytes [#/volume] in Blood by Automated count 2022-12-27 20:08:41 2.63 x 10'6 cells/uL F 4.6-6.2 Erythrocyte distribution width [Ratio] by Automated count 2022-12-27 20:08:41 14.9 % F 11.0-15.0 Hemoglobin [Mass/volume] in Blood 2022-12-27 20:08:41 8.5 g/dL F 14.0-18.0 MCHC [Mass/volume] by Automated count 2022-12-27 20:08:41 31.7 g/dL F 29.6-35.3 MCH [Entitic mass] by Automated count 2022-12-27 20:08:41 32.3 pg F 25.9-34.2 Hematocrit [Volume Fraction] of Blood by Automated count 2022-12-27 20:08:41 26.8 % F 41.0-53.0 MCV [Entitic volume] by Automated count 2022-12-27 20:08:41 102 fL F 80.0-100.0 Platelets [#/volume] in Blood by Automated count 2022-12-27 20:08:41 178 x 10^3 cells/uL F 140.0-450.0 Ferritin [Mass/volume] in Serum or Plasma 2022-11-24 06:03:46 863 ng/mL F 22.0-322.0 IRON SATURATION 2022-11-24 04:53:11 31 % F 21.0-49.0 TIBC 2022-11-24 04:53:11 275 ug/dL F 250.0-425.0 Iron [Mass/volume] in Serum or Plasma 2022-11-24 04:47:42 86 ug/dL F 65.0-175.0 Iron binding capacity.unsaturate d [Mass/volume] in Serum or Plasma 2022-11-24 04:47:42 189 ug/dL F 75.0-360.0 HCT CALC HGBX3 2022-11-23 23:44:53 27.3 % F 42.0-52.0 Reticulocytes/100 erythrocytes in Blood by Automated count 2022-11-23 23:44:35 2.52 % F 0.7-2.5 Erythrocytes [#/volume] in Blood by Automated count 2022-11-23 23:44:35 2.73 x 10'6 cells/uL F 4.6-6.2 Erythrocyte distribution width [Ratio] by Automated count 2022-11-23 23:44:35 16 % F 11.0-15.0 Hemoglobin [Mass/volume] in Blood 2022-11-23 23:44:35 9.1 g/dL F 14.0-18.0 MCH [Entitic mass] by Automated count 2022-11-23 23:44:35 33.5 pg F 25.9-34.2 MCHC [Mass/volume] by Automated count 2022-11-23 23:44:35 33.7 g/dL F 29.6-35.3 Hematocrit [Volume Fraction] of Blood by Automated count 2022-11-23 23:44:35 27.1 % F 41.0-53.0 MCV [Entitic volume] by Automated count 2022-11-23 23:44:35 99.3 fL F 80.0-100.0 Platelets [#/volume] in Blood by Automated count 2022-11-23 23:44:35 160 x 10^3 cells/uL F 140.0-450.0 Ferritin [Mass/volume] in Serum or Plasma 2022-10-30 18:40:04 848 ng/mL F 22.0-322.0 Ferritin [Mass/volume] in Serum or Plasma 2022-10-30 18:40:04 848 ng/mL F 22.0-322.0 IRON SATURATION 2022-10-30 08:03:41 46 % F 21.0-49.0 TIBC 2022-10-30 08:03:41 264 ug/dL F 250.0-425.0 IRON SATURATION 2022-10-30 08:03:41 46 % F 21.0-49.0 TIBC 2022-10-30 08:03:41 264 ug/dL F 250.0-425.0 Iron [Mass/volume] in Serum or Plasma 2022-10-30 07:43:13 122 ug/dL F 65.0-175.0 Iron binding capacity.unsaturate d [Mass/volume] in Serum or Plasma 2022-10-30 07:43:13 142 ug/dL F 75.0-360.0 Iron [Mass/volume] in Serum or Plasma 2022-10-30 07:43:13 122 ug/dL F 65.0-175.0 Iron binding capacity.unsaturate d [Mass/volume] in Serum or Plasma 2022-10-30 07:43:13 142 ug/dL F 75.0-360.0 HCT CALC HGBX3 2022-10-29 17:05:32 27.9 % F 42.0-52.0 HCT CALC HGBX3 2022-10-29 17:05:32 27.9 % F 42.0-52.0 Hematocrit [Volume Fraction] of Blood by Automated count 2022-10-29 17:04:34 28 % F 41.0-53.0 Hemoglobin [Mass/volume] in Blood 2022-10-29 17:04:34 9.3 g/dL F 14.0-18.0 MCV [Entitic volume] by Automated count 2022-10-29 17:04:34 100.2 fL F 80.0-100.0 Reticulocytes/100 erythrocytes in Blood by Automated count 2022-10-29 17:04:34 2.3 % F 0.7-2.5 Reticulocytes/100 erythrocytes in Blood by Automated count 2022-10-29 17:04:34 2.3 % F 0.7-2.5 Hemoglobin [Mass/volume] in Blood 2022-10-29 17:04:34 9.3 g/dL F 14.0-18.0 Hematocrit [Volume Fraction] of Blood by Automated count 2022-10-29 17:04:34 28 % F 41.0-53.0 MCV [Entitic volume] by Automated count 2022-10-29 17:04:34 100.2 fL F 80.0-100.0 Erythrocytes [#/volume] in Blood by Automated count 2022-10-29 17:04:33 2.79 x 10'6 cells/uL F 4.6-6.2 Platelets [#/volume] in Blood by Automated count 2022-10-29 17:04:33 178 x 10^3 cells/uL F 140.0-450.0 MCHC [Mass/volume] by Automated count 2022-10-29 17:04:33 33.4 g/dL F 29.6-35.3 Erythrocyte distribution width [Ratio] by Automated count 2022-10-29 17:04:33 16 % F 11.0-15.0 MCH [Entitic mass] by Automated count 2022-10-29 17:04:33 33.5 pg F 25.9-34.2 Erythrocytes [#/volume] in Blood by Automated count 2022-10-29 17:04:33 2.79 x 10'6 cells/uL F 4.6-6.2 Erythrocyte distribution width [Ratio] by Automated count 2022-10-29 17:04:33 16 % F 11.0-15.0 MCH [Entitic mass] by Automated count 2022-10-29 17:04:33 33.5 pg F 25.9-34.2 MCHC [Mass/volume] by Automated count 2022-10-29 17:04:33 33.4 g/dL F 29.6-35.3 Platelets [#/volume] in Blood by Automated count 2022-10-29 17:04:33 178 x 10^3 cells/uL F 140.0-450.0 IRON SATURATION 2022-09-28 02:35:14 36 % F 21.0-49.0 TIBC 2022-09-28 02:35:14 273 ug/dL F 250.0-425.0 Iron binding capacity.unsaturate d [Mass/volume] in Serum or Plasma 2022-09-28 02:30:38 175 ug/dL F 75.0-360.0 Iron [Mass/volume] in Serum or Plasma 2022-09-28 02:30:38 98 ug/dL F 65.0-175.0 Ferritin [Mass/volume] in Serum or Plasma 2022-09-27 20:46:30 895 ng/mL F 22.0-322.0 HCT CALC HGBX3 2022-09-27 16:58:35 29.1 % F 42.0-52.0 Erythrocyte distribution width [Ratio] by Automated count 2022-09-27 16:57:38 16.1 % F 11.0-15.0 MCH [Entitic mass] by Automated count 2022-09-27 16:57:38 32.5 pg F 25.9-34.2 MCHC [Mass/volume] by Automated count 2022-09-27 16:57:38 31.1 g/dL F 29.6-35.3 Reticulocytes/100 erythrocytes in Blood by Automated count 2022-09-27 16:57:36 1.57 % F 0.7-2.5 Erythrocytes [#/volume] in Blood by Automated count 2022-09-27 16:57:36 2.99 x 10'6 cells/uL F 4.6-6.2 Hemoglobin [Mass/volume] in Blood 2022-09-27 16:57:36 9.7 g/dL F 14.0-18.0 Hematocrit [Volume Fraction] of Blood by Automated count 2022-09-27 16:57:36 31.2 % F 41.0-53.0 MCV [Entitic volume] by Automated count 2022-09-27 16:57:36 104.3 fL F 80.0-100.0 Platelets [#/volume] in Blood by Automated count 2022-09-27 16:57:36 192 x 10^3 cells/uL F 140.0-450.0 Ferritin [Mass/volume] in Serum or Plasma 2022-08-28 15:22:16 779 ng/mL F 22.0-322.0 Ferritin [Mass/volume] in Serum or Plasma 2022-08-28 15:22:16 779 ng/mL F 22.0-322.0 IRON SATURATION 2022-08-28 05:07:03 28 % F 21.0-49.0 TIBC 2022-08-28 05:07:03 290 ug/dL F 250.0-425.0 IRON SATURATION 2022-08-28 05:07:03 28 % F 21.0-49.0 TIBC 2022-08-28 05:07:03 290 ug/dL F 250.0-425.0 Iron binding capacity.unsaturate d [Mass/volume] in Serum or Plasma 2022-08-28 05:05:07 209 ug/dL F 75.0-360.0 Iron [Mass/volume] in Serum or Plasma 2022-08-28 05:05:07 81 ug/dL F 65.0-175.0 Iron [Mass/volume] in Serum or Plasma 2022-08-28 05:05:07 81 ug/dL F 65.0-175.0 Iron binding capacity.unsaturate d [Mass/volume] in Serum or Plasma 2022-08-28 05:05:07 209 ug/dL F 75.0-360.0 HCT CALC HGBX3 2022-08-28 00:52:32 28.8 % F 42.0-52.0 HCT CALC HGBX3 2022-08-28 00:52:32 28.8 % F 42.0-52.0 Reticulocytes/100 erythrocytes in Blood by Automated count 2022-08-28 00:52:20 2.63 % F 0.7-2.5 Erythrocytes [#/volume] in Blood by Automated count 2022-08-28 00:52:20 3.15 x 10'6 cells/uL F 4.6-6.2 Erythrocyte distribution width [Ratio] by Automated count 2022-08-28 00:52:20 16.2 % F 11.0-15.0 Hemoglobin [Mass/volume] in Blood 2022-08-28 00:52:20 9.6 g/dL F 14.0-18.0 MCH [Entitic mass] by Automated count 2022-08-28 00:52:20 30.5 pg F 25.9-34.2 Hematocrit [Volume Fraction] of Blood by Automated count 2022-08-28 00:52:20 30.2 % F 41.0-53.0 MCHC [Mass/volume] by Automated count 2022-08-28 00:52:20 31.7 g/dL F 29.6-35.3 MCV [Entitic volume] by Automated count 2022-08-28 00:52:20 95.9 fL F 80.0-100.0 Platelets [#/volume] in Blood by Automated count 2022-08-28 00:52:20 190 x 10^3 cells/uL F 140.0-450.0 Erythrocyte distribution width [Ratio] by Automated count 2022-08-28 00:52:20 16.2 % F 11.0-15.0 MCH [Entitic mass] by Automated count 2022-08-28 00:52:20 30.5 pg F 25.9-34.2 Platelets [#/volume] in Blood by Automated count 2022-08-28 00:52:20 190 x 10^3 cells/uL F 140.0-450.0 Hemoglobin [Mass/volume] in Blood 2022-08-28 00:52:20 9.6 g/dL F 14.0-18.0 MCHC [Mass/volume] by Automated count 2022-08-28 00:52:20 31.7 g/dL F 29.6-35.3 Erythrocytes [#/volume] in Blood by Automated count 2022-08-28 00:52:20 3.15 x 10'6 cells/uL F 4.6-6.2 MCV [Entitic volume] by Automated count 2022-08-28 00:52:20 95.9 fL F 80.0-100.0 Hematocrit [Volume Fraction] of Blood by Automated count 2022-08-28 00:52:20 30.2 % F 41.0-53.0 Reticulocytes/100 erythrocytes in Blood by Automated count 2022-08-28 00:52:20 2.63 % F 0.7-2.5 IRON SATURATION 2022-07-25 04:39:31 28 % F 21.0-49.0 TIBC 2022-07-25 04:39:31 211 ug/dL F 250.0-425.0 Iron binding capacity.unsaturate d [Mass/volume] in Serum or Plasma 2022-07-25 04:37:57 151 ug/dL F 75.0-360.0 Iron [Mass/volume] in Serum or Plasma 2022-07-25 04:37:57 60 ug/dL F 65.0-175.0 HCT CALC HGBX3 2022-07-25 00:51:18 30 % F 42.0-52.0 Reticulocytes/100 erythrocytes in Blood by Automated count 2022-07-25 00:45:21 1.64 % F 0.7-2.5 Erythrocytes [#/volume] in Blood by Automated count 2022-07-25 00:45:21 3.17 x 10'6 cells/uL F 4.6-6.2 Hemoglobin [Mass/volume] in Blood 2022-07-25 00:45:21 10 g/dL F 14.0-18.0 Erythrocyte distribution width [Ratio] by Automated count 2022-07-25 00:45:21 16.3 % F 11.0-15.0 MCHC [Mass/volume] by Automated count 2022-07-25 00:45:21 33.6 g/dL F 29.6-35.3 MCH [Entitic mass] by Automated count 2022-07-25 00:45:21 31.5 pg F 25.9-34.2 Hematocrit [Volume Fraction] of Blood by Automated count 2022-07-25 00:45:21 29.8 % F 41.0-53.0 MCV [Entitic volume] by Automated count 2022-07-25 00:45:21 93.8 fL F 80.0-100.0 Platelets [#/volume] in Blood by Automated count 2022-07-25 00:45:21 187 x 10^3 cells/uL F 140.0-450.0 Ferritin [Mass/volume] in Serum or Plasma 2022-07-24 22:57:17 791 ng/mL F 22.0-322.0 IRON SATURATION 2022-06-23 04:56:00 23 % F 21.0-49.0 TIBC 2022-06-23 04:56:00 220 ug/dL F 250.0-425.0 Iron binding capacity.unsaturate d [Mass/volume] in Serum or Plasma 2022-06-23 04:52:50 169 ug/dL F 75.0-360.0 Iron [Mass/volume] in Serum or Plasma 2022-06-23 04:52:50 51 ug/dL F 65.0-175.0 Ferritin [Mass/volume] in Serum or Plasma 2022-06-22 22:14:18 609 ng/mL F 22.0-322.0 HCT CALC HGBX3 2022-06-22 20:47:07 32.1 % F 42.0-52.0 Reticulocytes/100 erythrocytes in Blood by Automated count 2022-06-22 20:46:12 2.16 % F 0.8-2.1 Erythrocytes [#/volume] in Blood by Automated count 2022-06-22 20:46:12 3.51 x 10'6 cells/uL F 4.6-6.2 Erythrocyte distribution width [Ratio] by Automated count 2022-06-22 20:46:12 15.1 % F 11.0-15.0 Hemoglobin [Mass/volume] in Blood 2022-06-22 20:46:12 10.7 g/dL F 14.0-18.0 MCH [Entitic mass] by Automated count 2022-06-22 20:46:12 30.5 pg F 27.0-31.0 MCHC [Mass/volume] by Automated count 2022-06-22 20:46:12 33.3 g/dL F 32.0-36.0 Hematocrit [Volume Fraction] of Blood by Automated count 2022-06-22 20:46:12 32 % F 42.0-52.0 MCV [Entitic volume] by Automated count 2022-06-22 20:46:12 91.4 fL F 80.0-100.0 Platelets [#/volume] in Blood by Automated count 2022-06-22 20:46:12 172 x 10^3 cells/uL F 150.0-400.0 IRON SATURATION 2022-05-26 04:40:40 30 % F 21.0-49.0 TIBC 2022-05-26 04:40:40 235 ug/dL F 250.0-425.0 IRON SATURATION 2022-05-26 04:40:40 30 % F 21.0-49.0 TIBC 2022-05-26 04:40:40 235 ug/dL F 250.0-425.0 Iron binding capacity.unsaturate d [Mass/volume] in Serum or Plasma 2022-05-26 04:29:42 164 ug/dL F 75.0-360.0 Iron [Mass/volume] in Serum or Plasma 2022-05-26 04:29:42 71 ug/dL F 65.0-175.0 Iron [Mass/volume] in Serum or Plasma 2022-05-26 04:29:42 71 ug/dL F 65.0-175.0 Iron binding capacity.unsaturate d [Mass/volume] in Serum or Plasma 2022-05-26 04:29:42 164 ug/dL F 75.0-360.0 Ferritin [Mass/volume] in Serum or Plasma 2022-05-26 01:21:17 715 ng/mL F 22.0-322.0 Ferritin [Mass/volume] in Serum or Plasma 2022-05-26 01:21:17 715 ng/mL F 22.0-322.0 HCT CALC HGBX3 2022-05-25 21:37:12 30 % F 42.0-52.0 HCT CALC HGBX3 2022-05-25 21:37:12 30 % F 42.0-52.0 Reticulocytes/100 erythrocytes in Blood by Automated count 2022-05-25 21:36:18 2.08 % F 0.8-2.1 Erythrocytes [#/volume] in Blood by Automated count 2022-05-25 21:36:18 3.55 x 10'6 cells/uL F 4.6-6.2 Erythrocyte distribution width [Ratio] by Automated count 2022-05-25 21:36:18 15.5 % F 11.0-15.0 Hemoglobin [Mass/volume] in Blood 2022-05-25 21:36:18 10 g/dL F 14.0-18.0 MCHC [Mass/volume] by Automated count 2022-05-25 21:36:18 30.9 g/dL F 32.0-36.0 Hematocrit [Volume Fraction] of Blood by Automated count 2022-05-25 21:36:18 32.3 % F 42.0-52.0 MCH [Entitic mass] by Automated count 2022-05-25 21:36:18 28.1 pg F 27.0-31.0 MCV [Entitic volume] by Automated count 2022-05-25 21:36:18 90.9 fL F 80.0-100.0 Platelets [#/volume] in Blood by Automated count 2022-05-25 21:36:18 152 x 10^3 cells/uL F 150.0-400.0 Erythrocytes [#/volume] in Blood by Automated count 2022-05-25 21:36:18 3.55 x 10'6 cells/uL F 4.6-6.2 Hematocrit [Volume Fraction] of Blood by Automated count 2022-05-25 21:36:18 32.3 % F 42.0-52.0 Hemoglobin [Mass/volume] in Blood 2022-05-25 21:36:18 10 g/dL F 14.0-18.0 Platelets [#/volume] in Blood by Automated count 2022-05-25 21:36:18 152 x 10^3 cells/uL F 150.0-400.0 Reticulocytes/100 erythrocytes in Blood by Automated count 2022-05-25 21:36:18 2.08 % F 0.8-2.1 Erythrocyte distribution width [Ratio] by Automated count 2022-05-25 21:36:18 15.5 % F 11.0-15.0 MCV [Entitic volume] by Automated count 2022-05-25 21:36:18 90.9 fL F 80.0-100.0 MCHC [Mass/volume] by Automated count 2022-05-25 21:36:18 30.9 g/dL F 32.0-36.0 MCH [Entitic mass] by Automated count 2022-05-25 21:36:18 28.1 pg F 27.0-31.0 IRON SATURATION 2022-04-25 03:40:15 30 % F 21.0-49.0 TIBC 2022-04-25 03:40:15 209 ug/dL F 250.0-425.0 Iron binding capacity.unsaturate d [Mass/volume] in Serum or Plasma 2022-04-25 03:22:57 147 ug/dL F 75.0-360.0 Iron [Mass/volume] in Serum or Plasma 2022-04-25 03:22:57 62 ug/dL F 65.0-175.0 Ferritin [Mass/volume] in Serum or Plasma 2022-04-25 00:46:20 856 ng/mL F 22.0-322.0 HCT CALC HGBX3 2022-04-24 20:44:42 30.3 % F 42.0-52.0 Reticulocytes/100 erythrocytes in Blood by Automated count 2022-04-24 20:44:19 2.14 % F 0.8-2.1 Erythrocytes [#/volume] in Blood by Automated count 2022-04-24 20:44:19 3.34 x 10'6 cells/uL F 4.6-6.2 Erythrocyte distribution width [Ratio] by Automated count 2022-04-24 20:44:19 15.4 % F 11.0-15.0 Hemoglobin [Mass/volume] in Blood 2022-04-24 20:44:19 10.1 g/dL F 14.0-18.0 MCH [Entitic mass] by Automated count 2022-04-24 20:44:19 30.2 pg F 27.0-31.0 MCHC [Mass/volume] by Automated count 2022-04-24 20:44:19 34.2 g/dL F 32.0-36.0 Hematocrit [Volume Fraction] of Blood by Automated count 2022-04-24 20:44:19 29.5 % F 42.0-52.0 MCV [Entitic volume] by Automated count 2022-04-24 20:44:19 88.2 fL F 80.0-100.0 Platelets [#/volume] in Blood by Automated count 2022-04-24 20:44:19 147 x 10^3 cells/uL F 150.0-400.0 IRON SATURATION 2022-04-03 04:22:39 29 % F 21.0-49.0 TIBC 2022-04-03 04:22:39 217 ug/dL F 250.0-425.0 Ferritin [Mass/volume] in Serum or Plasma 2022-04-02 23:38:17 771 ng/mL F 22.0-322.0 Iron [Mass/volume] in Serum or Plasma 2022-04-02 22:50:47 62 ug/dL F 65.0-175.0 Iron binding capacity.unsaturate d [Mass/volume] in Serum or Plasma 2022-04-02 22:50:47 155 ug/dL F 75.0-360.0 HCT CALC HGBX3 2022-04-02 14:41:41 30.3 % F 42.0-52.0 Reticulocytes/100 erythrocytes in Blood by Automated count 2022-04-02 14:41:01 1.79 % F 0.8-2.1 Erythrocyte distribution width [Ratio] by Automated count 2022-04-02 14:41:01 15.1 % F 11.0-15.0 MCH [Entitic mass] by Automated count 2022-04-02 14:41:01 30.6 pg F 27.0-31.0 MCHC [Mass/volume] by Automated count 2022-04-02 14:41:01 34.6 g/dL F 32.0-36.0 Platelets [#/volume] in Blood by Automated count 2022-04-02 14:41:01 143 x 10^3 cells/uL F 150.0-400.0 Erythrocytes [#/volume] in Blood by Automated count 2022-04-02 14:41:00 3.32 x 10'6 cells/uL F 4.6-6.2 Hemoglobin [Mass/volume] in Blood 2022-04-02 14:41:00 10.1 g/dL F 14.0-18.0 Hematocrit [Volume Fraction] of Blood by Automated count 2022-04-02 14:41:00 29.3 % F 42.0-52.0 MCV [Entitic volume] by Automated count 2022-04-02 14:41:00 88.4 fL F 80.0-100.0 IRON SATURATION 2022-02-21 06:51:09 22 % F 21.0-49.0 TIBC 2022-02-21 06:51:09 223 ug/dL F 250.0-425.0 IRON SATURATION 2022-02-21 06:51:09 22 % F 21.0-49.0 TIBC 2022-02-21 06:51:09 223 ug/dL F 250.0-425.0 Iron [Mass/volume] in Serum or Plasma 2022-02-21 06:26:31 50 ug/dL F 65.0-175.0 Iron binding capacity.unsaturate d [Mass/volume] in Serum or Plasma 2022-02-21 06:26:31 173 ug/dL F 75.0-360.0 Iron [Mass/volume] in Serum or Plasma 2022-02-21 06:26:31 50 ug/dL F 65.0-175.0 Iron binding capacity.unsaturate d [Mass/volume] in Serum or Plasma 2022-02-21 06:26:31 173 ug/dL F 75.0-360.0 HCT CALC HGBX3 2022-02-21 04:22:37 31.5 % F 42.0-52.0 HCT CALC HGBX3 2022-02-21 04:22:37 31.5 % F 42.0-52.0 Reticulocytes/100 erythrocytes in Blood by Automated count 2022-02-21 04:21:41 1.38 % F 0.8-2.1 Erythrocytes [#/volume] in Blood by Automated count 2022-02-21 04:21:41 3.41 x 10'6 cells/uL F 4.6-6.2 Erythrocyte distribution width [Ratio] by Automated count 2022-02-21 04:21:41 14.5 % F 11.0-15.0 Hemoglobin [Mass/volume] in Blood 2022-02-21 04:21:41 10.5 g/dL F 14.0-18.0 MCH [Entitic mass] by Automated count 2022-02-21 04:21:41 30.7 pg F 27.0-31.0 MCHC [Mass/volume] by Automated count 2022-02-21 04:21:41 34.7 g/dL F 32.0-36.0 Hematocrit [Volume Fraction] of Blood by Automated count 2022-02-21 04:21:41 30.3 % F 42.0-52.0 MCV [Entitic volume] by Automated count 2022-02-21 04:21:41 88.7 fL F 80.0-100.0 Platelets [#/volume] in Blood by Automated count 2022-02-21 04:21:41 144 x 10^3 cells/uL F 150.0-400.0 Erythrocyte distribution width [Ratio] by Automated count 2022-02-21 04:21:41 14.5 % F 11.0-15.0 Hematocrit [Volume Fraction] of Blood by Automated count 2022-02-21 04:21:41 30.3 % F 42.0-52.0 Platelets [#/volume] in Blood by Automated count 2022-02-21 04:21:41 144 x 10^3 cells/uL F 150.0-400.0 Erythrocytes [#/volume] in Blood by Automated count 2022-02-21 04:21:41 3.41 x 10'6 cells/uL F 4.6-6.2 Hemoglobin [Mass/volume] in Blood 2022-02-21 04:21:41 10.5 g/dL F 14.0-18.0 MCV [Entitic volume] by Automated count 2022-02-21 04:21:41 88.7 fL F 80.0-100.0 MCH [Entitic mass] by Automated count 2022-02-21 04:21:41 30.7 pg F 27.0-31.0 MCHC [Mass/volume] by Automated count 2022-02-21 04:21:41 34.7 g/dL F 32.0-36.0 Reticulocytes/100 erythrocytes in Blood by Automated count 2022-02-21 04:21:41 1.38 % F 0.8-2.1 Ferritin [Mass/volume] in Serum or Plasma 2022-02-21 02:43:55 742 ng/mL F 22.0-322.0 Ferritin [Mass/volume] in Serum or Plasma 2022-02-21 02:43:55 742 ng/mL F 22.0-322.0 HCT CALC HGBX3 HCT CALC HGBX3 HCT CALC HGBX3 HCT CALC HGBX3 HCT CALC HGBX3 HCT CALC HGBX3 Comorbidities Description Draw Date Result/Unit Status Ref Range Result Comments Hemoglobin A1c/Hemoglobin.total in Blood 2022-06-23 05:51:03 8 %A1c F 0.0-5.6 FluidBP Description Draw Date Result/Unit Status Ref Range Result Comments Sodium [Moles/volume] in Serum or Plasma 2024-03-07 06:46:32 140 mEq/L F 132.0-146.0 Sodium [Moles/volume] in Serum or Plasma 2024-03-07 06:46:32 140 mEq/L F 132.0-146.0 Sodium [Moles/volume] in Serum or Plasma 2024-01-29 08:04:30 142 mEq/L F 132.0-146.0 Sodium [Moles/volume] in Serum or Plasma 2024-01-01 07:50:11 141 mEq/L F 132.0-146.0 Sodium [Moles/volume] in Serum or Plasma 2024-01-01 07:50:11 141 mEq/L F 132.0-146.0 Sodium [Moles/volume] in Serum or Plasma 2023-11-20 04:55:01 141 mEq/L F 132.0-146.0 Sodium [Moles/volume] in Serum or Plasma 2023-10-24 05:37:39 142 mEq/L F 132.0-146.0 Sodium [Moles/volume] in Serum or Plasma 2023-10-24 05:37:39 142 mEq/L F 132.0-146.0 Sodium [Moles/volume] in Serum or Plasma 2023-09-25 23:13:10 140 mEq/L F 132.0-146.0 Sodium [Moles/volume] in Serum or Plasma 2023-09-25 23:13:10 140 mEq/L F 132.0-146.0 Sodium [Moles/volume] in Serum or Plasma 2023-08-27 07:06:48 135 mEq/L F 132.0-146.0 Sodium [Moles/volume] in Serum or Plasma 2023-07-25 06:41:05 138 mEq/L F 132.0-146.0 Sodium [Moles/volume] in Serum or Plasma 2023-06-29 01:29:17 142 mEq/L F 132.0-146.0 Sodium [Moles/volume] in Serum or Plasma 2023-06-29 01:29:17 142 mEq/L F 132.0-146.0 Sodium [Moles/volume] in Serum or Plasma 2023-05-24 07:48:42 141 mEq/L F 132.0-146.0 Sodium [Moles/volume] in Serum or Plasma 2023-05-24 07:48:42 141 mEq/L F 132.0-146.0 Sodium [Moles/volume] in Serum or Plasma 2023-04-25 08:14:24 138 mEq/L F 132.0-146.0 Sodium [Moles/volume] in Serum or Plasma 2023-04-25 08:14:24 138 mEq/L F 132.0-146.0 Sodium [Moles/volume] in Serum or Plasma 2023-04-03 22:25:13 136 mEq/L F 132.0-146.0 Sodium [Moles/volume] in Serum or Plasma 2023-02-27 08:20:25 140 mEq/L F 132.0-146.0 Sodium [Moles/volume] in Serum or Plasma 2023-02-27 08:20:25 140 mEq/L F 132.0-146.0 Sodium [Moles/volume] in Serum or Plasma 2023-01-22 04:01:20 140 mEq/L F 132.0-146.0 Sodium [Moles/volume] in Serum or Plasma 2023-01-22 04:01:20 140 mEq/L F 132.0-146.0 Sodium [Moles/volume] in Serum or Plasma 2022-12-27 16:17:40 137 mEq/L F 132.0-146.0 Sodium [Moles/volume] in Serum or Plasma 2022-11-24 03:59:27 140 mEq/L F 132.0-146.0 Sodium [Moles/volume] in Serum or Plasma 2022-10-30 06:49:36 140 mEq/L F 132.0-146.0 Sodium [Moles/volume] in Serum or Plasma 2022-10-30 06:49:36 140 mEq/L F 132.0-146.0 Sodium [Moles/volume] in Serum or Plasma 2022-09-27 19:21:36 138 mEq/L F 132.0-146.0 Sodium [Moles/volume] in Serum or Plasma 2022-08-28 04:35:20 144 mEq/L F 132.0-146.0 Sodium [Moles/volume] in Serum or Plasma 2022-08-28 04:35:20 144 mEq/L F 132.0-146.0 Sodium [Moles/volume] in Serum or Plasma 2022-07-24 20:39:24 142 mEq/L F 132.0-146.0 Sodium [Moles/volume] in Serum or Plasma 2022-06-22 17:30:12 144 mEq/L F 132.0-146.0 Sodium [Moles/volume] in Serum or Plasma 2022-05-25 23:33:20 141 mEq/L F 132.0-146.0 Sodium [Moles/volume] in Serum or Plasma 2022-05-25 23:33:20 141 mEq/L F 132.0-146.0 Sodium [Moles/volume] in Serum or Plasma 2022-04-24 21:50:18 139 mEq/L F 132.0-146.0 Sodium [Moles/volume] in Serum or Plasma 2022-04-02 16:28:53 140 mEq/L F 132.0-146.0 Sodium [Moles/volume] in Serum or Plasma 2022-02-21 01:19:54 136 mEq/L F 132.0-146.0 Sodium [Moles/volume] in Serum or Plasma 2022-02-21 01:19:54 136 mEq/L F 132.0-146.0 General Description Draw Date Result/Unit Status Ref Range Result Comments Aluminum [Mass/volume] in Serum or Plasma 2024-03-09 12:15:31 F Recollect - Quantity not sufficient,Source: Aluminum [Mass/volume] in Serum or Plasma 2024-03-09 12:15:31 F Recollect - Quantity not sufficient,Source: [facility] 2024-03-07 01:53:27 6.2 g/day F [facility] 2024-03-07 01:53:27 6.2 g/day F Alanine aminotransferase [Enzymatic activity/volume] in Serum or Plasma 2024-03-06 23:33:23 25 U/L F 10.0-49.0 Aspartate aminotransferase [Enzymatic activity/volume] in Serum or Plasma 2024-03-06 23:33:23 33 U/L F 0.0-33.0 Alanine aminotransferase [Enzymatic activity/volume] in Serum or Plasma 2024-03-06 23:33:23 25 U/L F 10.0-49.0 Aspartate aminotransferase [Enzymatic activity/volume] in Serum or Plasma 2024-03-06 23:33:23 33 U/L F 0.0-33.0 Aspartate aminotransferase [Enzymatic activity/volume] in Serum or Plasma 2024-01-28 19:12:24 30 U/L F 0.0-33.0 Alanine aminotransferase [Enzymatic activity/volume] in Serum or Plasma 2024-01-28 19:12:24 19 U/L F 10.0-49.0 Alanine aminotransferase [Enzymatic activity/volume] in Serum or Plasma 2023-12-31 23:35:20 19 U/L F 10.0-49.0 Aspartate aminotransferase [Enzymatic activity/volume] in Serum or Plasma 2023-12-31 23:35:20 35 U/L F 0.0-33.0 Aspartate aminotransferase [Enzymatic activity/volume] in Serum or Plasma 2023-12-31 23:35:20 35 U/L F 0.0-33.0 Alanine aminotransferase [Enzymatic activity/volume] in Serum or Plasma 2023-12-31 23:35:20 19 U/L F 10.0-49.0 Aspartate aminotransferase [Enzymatic activity/volume] in Serum or Plasma 2023-11-20 00:49:13 37 U/L F 0.0-33.0 Alanine aminotransferase [Enzymatic activity/volume] in Serum or Plasma 2023-11-20 00:49:13 21 U/L F 10.0-49.0 [facility] 2023-11-19 22:15:23 6.4 g/day F Aspartate aminotransferase [Enzymatic activity/volume] in Serum or Plasma 2023-10-23 16:48:17 27 U/L F 0.0-33.0 Alanine aminotransferase [Enzymatic activity/volume] in Serum or Plasma 2023-10-23 16:48:17 17 U/L F 10.0-49.0 Aspartate aminotransferase [Enzymatic activity/volume] in Serum or Plasma 2023-10-23 16:48:17 27 U/L F 0.0-33.0 Alanine aminotransferase [Enzymatic activity/volume] in Serum or Plasma 2023-10-23 16:48:17 17 U/L F 10.0-49.0 Aspartate aminotransferase [Enzymatic activity/volume] in Serum or Plasma 2023-09-25 13:43:37 25 U/L F 0.0-33.0 Alanine aminotransferase [Enzymatic activity/volume] in Serum or Plasma 2023-09-25 13:43:37 17 U/L F 10.0-49.0 Alanine aminotransferase [Enzymatic activity/volume] in Serum or Plasma 2023-09-25 13:43:37 17 U/L F 10.0-49.0 Aspartate aminotransferase [Enzymatic activity/volume] in Serum or Plasma 2023-09-25 13:43:37 25 U/L F 0.0-33.0 [facility] 2023-08-26 21:26:12 8 g/day F Aspartate aminotransferase [Enzymatic activity/volume] in Serum or Plasma 2023-08-26 18:51:36 28 U/L F 0.0-33.0 Alanine aminotransferase [Enzymatic activity/volume] in Serum or Plasma 2023-08-26 18:51:36 27 U/L F 10.0-49.0 Aspartate aminotransferase [Enzymatic activity/volume] in Serum or Plasma 2023-07-24 17:39:41 21 U/L F 0.0-33.0 Alanine aminotransferase [Enzymatic activity/volume] in Serum or Plasma 2023-07-24 17:39:41 13 U/L F 10.0-49.0 Aspartate aminotransferase [Enzymatic activity/volume] in Serum or Plasma 2023-06-28 15:38:38 22 U/L F 0.0-33.0 Alanine aminotransferase [Enzymatic activity/volume] in Serum or Plasma 2023-06-28 15:38:38 15 U/L F 10.0-49.0 Alanine aminotransferase [Enzymatic activity/volume] in Serum or Plasma 2023-06-28 15:38:38 15 U/L F 10.0-49.0 Aspartate aminotransferase [Enzymatic activity/volume] in Serum or Plasma 2023-06-28 15:38:38 22 U/L F 0.0-33.0 Aspartate aminotransferase [Enzymatic activity/volume] in Serum or Plasma 2023-05-24 01:21:33 19 U/L F 0.0-33.0 Alanine aminotransferase [Enzymatic activity/volume] in Serum or Plasma 2023-05-24 01:21:33 21 U/L F 10.0-49.0 Alanine aminotransferase [Enzymatic activity/volume] in Serum or Plasma 2023-05-24 01:21:33 21 U/L F 10.0-49.0 Aspartate aminotransferase [Enzymatic activity/volume] in Serum or Plasma 2023-05-24 01:21:33 19 U/L F 0.0-33.0 [facility] PD 2023-05-23 13:13:09 4.4 g/day F [facility] PD 2023-05-23 13:13:09 4.4 g/day F Aspartate aminotransferase [Enzymatic activity/volume] in Serum or Plasma 2023-04-24 18:06:58 27 U/L F 0.0-33.0 Alanine aminotransferase [Enzymatic activity/volume] in Serum or Plasma 2023-04-24 18:06:58 42 U/L F 10.0-49.0 Alanine aminotransferase [Enzymatic activity/volume] in Serum or Plasma 2023-04-24 18:06:58 42 U/L F 10.0-49.0 Aspartate aminotransferase [Enzymatic activity/volume] in Serum or Plasma 2023-04-24 18:06:58 27 U/L F 0.0-33.0 Aspartate aminotransferase [Enzymatic activity/volume] in Serum or Plasma 2023-04-03 16:22:19 61 U/L F 0.0-33.0 Alanine aminotransferase [Enzymatic activity/volume] in Serum or Plasma 2023-04-03 16:22:19 94 U/L F 10.0-49.0 [facility] PD 2023-02-26 19:39:34 5.5 g/day F [facility] PD 2023-02-26 19:39:34 5.5 g/day F Aspartate aminotransferase [Enzymatic activity/volume] in Serum or Plasma 2023-02-26 19:29:35 24 U/L F 0.0-33.0 Alanine aminotransferase [Enzymatic activity/volume] in Serum or Plasma 2023-02-26 19:29:35 18 U/L F 10.0-49.0 Alanine aminotransferase [Enzymatic activity/volume] in Serum or Plasma 2023-02-26 19:29:35 18 U/L F 10.0-49.0 Aspartate aminotransferase [Enzymatic activity/volume] in Serum or Plasma 2023-02-26 19:29:35 24 U/L F 0.0-33.0 Aluminum [Mass/volume] in Serum or Plasma 2023-02-25 20:03:50 10 ug/L F 0.0-9.0 Aluminum [Mass/volume] in Serum or Plasma 2023-02-25 20:03:50 10 ug/L F 0.0-9.0 Aspartate aminotransferase [Enzymatic activity/volume] in Serum or Plasma 2023-01-22 03:53:35 31 U/L F 0.0-33.0 Alanine aminotransferase [Enzymatic activity/volume] in Serum or Plasma 2023-01-22 03:53:35 22 U/L F 10.0-49.0 Alanine aminotransferase [Enzymatic activity/volume] in Serum or Plasma 2023-01-22 03:53:35 22 U/L F 10.0-49.0 Aspartate aminotransferase [Enzymatic activity/volume] in Serum or Plasma 2023-01-22 03:53:35 31 U/L F 0.0-33.0 Aspartate aminotransferase [Enzymatic activity/volume] in Serum or Plasma 2022-12-27 16:17:40 25 U/L F 0.0-33.0 Alanine aminotransferase [Enzymatic activity/volume] in Serum or Plasma 2022-12-27 16:17:40 9 U/L F 10.0-49.0 Aspartate aminotransferase [Enzymatic activity/volume] in Serum or Plasma 2022-11-24 03:59:27 23 U/L F 0.0-33.0 Alanine aminotransferase [Enzymatic activity/volume] in Serum or Plasma 2022-11-24 03:59:27 18 U/L F 10.0-49.0 [facility] PD 2022-11-24 03:36:53 6.5 g/day F Aspartate aminotransferase [Enzymatic activity/volume] in Serum or Plasma 2022-10-30 06:49:36 25 U/L F 0.0-33.0 Alanine aminotransferase [Enzymatic activity/volume] in Serum or Plasma 2022-10-30 06:49:36 20 U/L F 10.0-49.0 Aspartate aminotransferase [Enzymatic activity/volume] in Serum or Plasma 2022-10-30 06:49:36 25 U/L F 0.0-33.0 Alanine aminotransferase [Enzymatic activity/volume] in Serum or Plasma 2022-10-30 06:49:36 20 U/L F 10.0-49.0 Aspartate aminotransferase [Enzymatic activity/volume] in Serum or Plasma 2022-09-27 19:21:36 20 U/L F 0.0-33.0 Alanine aminotransferase [Enzymatic activity/volume] in Serum or Plasma 2022-09-27 19:21:36 14 U/L F 10.0-49.0 Aspartate aminotransferase [Enzymatic activity/volume] in Serum or Plasma 2022-08-28 04:35:20 22 U/L F 0.0-33.0 Alanine aminotransferase [Enzymatic activity/volume] in Serum or Plasma 2022-08-28 04:35:20 15 U/L F 10.0-49.0 Alanine aminotransferase [Enzymatic activity/volume] in Serum or Plasma 2022-08-28 04:35:20 15 U/L F 10.0-49.0 Aspartate aminotransferase [Enzymatic activity/volume] in Serum or Plasma 2022-08-28 04:35:20 22 U/L F 0.0-33.0 [facility] PD 2022-08-27 17:34:17 5 g/day F [facility] 2022-08-27 17:34:17 5 g/day F Aspartate aminotransferase [Enzymatic activity/volume] in Serum or Plasma 2022-07-24 20:39:24 22 U/L F 0.0-33.0 Alanine aminotransferase [Enzymatic activity/volume] in Serum or Plasma 2022-07-24 20:39:24 33 U/L F 10.0-49.0 Aspartate aminotransferase [Enzymatic activity/volume] in Serum or Plasma 2022-06-22 17:30:12 31 U/L F 0.0-33.0 Alanine aminotransferase [Enzymatic activity/volume] in Serum or Plasma 2022-06-22 17:30:12 42 U/L F 10.0-49.0 Aspartate aminotransferase [Enzymatic activity/volume] in Serum or Plasma 2022-05-25 23:33:20 25 U/L F 0.0-33.0 Alanine aminotransferase [Enzymatic activity/volume] in Serum or Plasma 2022-05-25 23:33:20 40 U/L F 10.0-49.0 Alanine aminotransferase [Enzymatic activity/volume] in Serum or Plasma 2022-05-25 23:33:20 40 U/L F 10.0-49.0 Aspartate aminotransferase [Enzymatic activity/volume] in Serum or Plasma 2022-05-25 23:33:20 25 U/L F 0.0-33.0 [facility] 2022-05-25 19:49:43 5.1 g/day F [facility] 2022-05-25 19:49:43 5.1 g/day F Aspartate aminotransferase [Enzymatic activity/volume] in Serum or Plasma 2022-04-24 21:50:18 22 U/L F 0.0-33.0 Alanine aminotransferase [Enzymatic activity/volume] in Serum or Plasma 2022-04-24 21:50:18 36 U/L F 10.0-49.0 Aspartate aminotransferase [Enzymatic activity/volume] in Serum or Plasma 2022-04-02 16:28:53 18 U/L F 0.0-33.0 Alanine aminotransferase [Enzymatic activity/volume] in Serum or Plasma 2022-04-02 16:28:53 42 U/L F 10.0-49.0 Aluminum [Mass/volume] in Serum or Plasma 2022-02-21 15:18:48 10 ug/L F 0.0-9.0 Aluminum [Mass/volume] in Serum or Plasma 2022-02-21 15:18:48 10 ug/L F 0.0-9.0 [facility] PD 2022-02-21 02:21:52 6.7 g/day F [facility] 2022-02-21 02:21:52 6.7 g/day F Aspartate aminotransferase [Enzymatic activity/volume] in Serum or Plasma 2022-02-21 01:19:54 19 U/L F 0.0-33.0 Alanine aminotransferase [Enzymatic activity/volume] in Serum or Plasma 2022-02-21 01:19:54 40 U/L F 10.0-49.0 Alanine aminotransferase [Enzymatic activity/volume] in Serum or Plasma 2022-02-21 01:19:54 40 U/L F 10.0-49.0 Aspartate aminotransferase [Enzymatic activity/volume] in Serum or Plasma 2022-02-21 01:19:54 19 U/L F 0.0-33.0 InfectionVaccination Description Draw Date Result/Unit Status Ref Range Result Comments Lymphocytes [#/volume] in Blood by Automated count 2024-03-07 03:08:24 833 Cells/uL F 620.0-3660.0 Monocytes/100 leukocytes in Blood by Automated count 2024-03-07 03:08:24 8.2 % F Neutrophils/100 leukocytes in Blood by Automated count 2024-03-07 03:08:24 74 % F Basophils [#/volume] in Blood by Automated count 2024-03-07 03:08:24 26 Cells/uL F 0.0-400.0 Lymphocytes/100 leukocytes in Blood by Automated count 2024-03-07 03:08:24 15.9 % F Basophils/100 leukocytes in Blood by Automated count 2024-03-07 03:08:24 0.5 % F Eosinophils [#/volume] in Blood by Automated count 2024-03-07 03:08:24 73 Cells/uL F 0.0-700.0 Neutrophils [#/volume] in Blood by Automated count 2024-03-07 03:08:24 3878 Cells/uL F 2000.0-8800.0 Eosinophils/100 leukocytes in Blood by Automated count 2024-03-07 03:08:24 1.4 % F Leukocytes [#/volume] in Blood by Automated count 2024-03-07 03:08:24 5.2 x 10^3 cells/uL F 4.0-11.0 Monocytes [#/volume] in Blood by Automated count 2024-03-07 03:08:24 430 Cells/uL F 0.0-1100.0 Monocytes/100 leukocytes in Blood by Automated count 2024-03-07 03:08:24 8.2 % F Eosinophils/100 leukocytes in Blood by Automated count 2024-03-07 03:08:24 1.4 % F Leukocytes [#/volume] in Blood by Automated count 2024-03-07 03:08:24 5.2 x 10^3 cells/uL F 4.0-11.0 Neutrophils [#/volume] in Blood by Automated count 2024-03-07 03:08:24 3878 Cells/uL F 2000.0-8800.0 Lymphocytes [#/volume] in Blood by Automated count 2024-03-07 03:08:24 833 Cells/uL F 620.0-3660.0 Basophils [#/volume] in Blood by Automated count 2024-03-07 03:08:24 26 Cells/uL F 0.0-400.0 Eosinophils [#/volume] in Blood by Automated count 2024-03-07 03:08:24 73 Cells/uL F 0.0-700.0 Basophils/100 leukocytes in Blood by Automated count 2024-03-07 03:08:24 0.5 % F Neutrophils/100 leukocytes in Blood by Automated count 2024-03-07 03:08:24 74 % F Lymphocytes/100 leukocytes in Blood by Automated count 2024-03-07 03:08:24 15.9 % F Monocytes [#/volume] in Blood by Automated count 2024-03-07 03:08:24 430 Cells/uL F 0.0-1100.0 Lymphocytes/100 leukocytes in Blood by Automated count 2024-01-29 00:28:26 12.9 % F Leukocytes [#/volume] in Blood by Automated count 2024-01-29 00:28:26 5.6 x 10^3 cells/uL F 4.0-11.0 Basophils/100 leukocytes in Blood by Automated count 2024-01-29 00:28:24 0.3 % F Neutrophils/100 leukocytes in Blood by Automated count 2024-01-29 00:28:24 78.2 % F Eosinophils/100 leukocytes in Blood by Automated count 2024-01-29 00:28:24 0.9 % F Monocytes/100 leukocytes in Blood by Automated count 2024-01-29 00:28:24 7.7 % F Basophils [#/volume] in Blood by Automated count 2024-01-29 00:28:24 17 Cells/uL F 0.0-400.0 Eosinophils [#/volume] in Blood by Automated count 2024-01-29 00:28:24 50 Cells/uL F 0.0-700.0 Monocytes [#/volume] in Blood by Automated count 2024-01-29 00:28:24 430 Cells/uL F 0.0-1100.0 Lymphocytes [#/volume] in Blood by Automated count 2024-01-29 00:28:24 721 Cells/uL F 620.0-3660.0 Neutrophils [#/volume] in Blood by Automated count 2024-01-29 00:28:24 4371 Cells/uL F 2000.0-8800.0 Basophils/100 leukocytes in Blood by Automated count 2024-01-01 04:52:13 0.5 % F Lymphocytes/100 leukocytes in Blood by Automated count 2024-01-01 04:52:13 17.6 % F Neutrophils/100 leukocytes in Blood by Automated count 2024-01-01 04:52:13 71.5 % F Monocytes/100 leukocytes in Blood by Automated count 2024-01-01 04:52:13 9.3 % F Eosinophils/100 leukocytes in Blood by Automated count 2024-01-01 04:52:13 1.1 % F Leukocytes [#/volume] in Blood by Automated count 2024-01-01 04:52:13 5 x 10^3 cells/uL F 4.0-11.0 Neutrophils [#/volume] in Blood by Automated count 2024-01-01 04:52:13 3611 Cells/uL F 2000.0-8800.0 Monocytes [#/volume] in Blood by Automated count 2024-01-01 04:52:13 470 Cells/uL F 0.0-1100.0 Lymphocytes [#/volume] in Blood by Automated count 2024-01-01 04:52:13 889 Cells/uL F 620.0-3660.0 Basophils [#/volume] in Blood by Automated count 2024-01-01 04:52:13 25 Cells/uL F 0.0-400.0 Eosinophils [#/volume] in Blood by Automated count 2024-01-01 04:52:13 56 Cells/uL F 0.0-700.0 Eosinophils/100 leukocytes in Blood by Automated count 2024-01-01 04:52:13 1.1 % F Basophils/100 leukocytes in Blood by Automated count 2024-01-01 04:52:13 0.5 % F Monocytes/100 leukocytes in Blood by Automated count 2024-01-01 04:52:13 9.3 % F Lymphocytes/100 leukocytes in Blood by Automated count 2024-01-01 04:52:13 17.6 % F Neutrophils/100 leukocytes in Blood by Automated count 2024-01-01 04:52:13 71.5 % F Leukocytes [#/volume] in Blood by Automated count 2024-01-01 04:52:13 5 x 10^3 cells/uL F 4.0-11.0 Basophils [#/volume] in Blood by Automated count 2024-01-01 04:52:13 25 Cells/uL F 0.0-400.0 Eosinophils [#/volume] in Blood by Automated count 2024-01-01 04:52:13 56 Cells/uL F 0.0-700.0 Monocytes [#/volume] in Blood by Automated count 2024-01-01 04:52:13 470 Cells/uL F 0.0-1100.0 Lymphocytes [#/volume] in Blood by Automated count 2024-01-01 04:52:13 889 Cells/uL F 620.0-3660.0 Neutrophils [#/volume] in Blood by Automated count 2024-01-01 04:52:13 3611 Cells/uL F 2000.0-8800.0 Eosinophils/100 leukocytes in Blood by Automated count 2023-11-19 22:37:12 0.8 % F Lymphocytes/100 leukocytes in Blood by Automated count 2023-11-19 22:37:12 12.7 % F Neutrophils/100 leukocytes in Blood by Automated count 2023-11-19 22:37:12 77 % F Monocytes/100 leukocytes in Blood by Automated count 2023-11-19 22:37:12 9.2 % F Basophils/100 leukocytes in Blood by Automated count 2023-11-19 22:37:12 0.3 % F Leukocytes [#/volume] in Blood by Automated count 2023-11-19 22:37:12 6.4 x 10^3 cells/uL F 4.0-11.0 Eosinophils [#/volume] in Blood by Automated count 2023-11-19 22:37:12 52 Cell/uL F 0.0-700.0 Basophils [#/volume] in Blood by Automated count 2023-11-19 22:37:12 19 Cell/uL F 0.0-400.0 Monocytes [#/volume] in Blood by Automated count 2023-11-19 22:37:12 593 Cell/uL F 0.0-1100.0 Lymphocytes [#/volume] in Blood by Automated count 2023-11-19 22:37:12 819 Cell/uL F 620.0-3660.0 Neutrophils [#/volume] in Blood by Automated count 2023-11-19 22:37:12 4966 Cell/uL F 2000.0-8800.0 Neutrophils/100 leukocytes in Blood by Automated count 2023-10-23 23:02:22 80.3 % F Lymphocytes/100 leukocytes in Blood by Automated count 2023-10-23 23:02:22 10.6 % F Basophils/100 leukocytes in Blood by Automated count 2023-10-23 23:02:22 0.2 % F Monocytes [#/volume] in Blood by Automated count 2023-10-23 23:02:22 605 Cell/uL F 0.0-1100.0 Eosinophils [#/volume] in Blood by Automated count 2023-10-23 23:02:22 85 Cell/uL F 0.0-700.0 Basophils [#/volume] in Blood by Automated count 2023-10-23 23:02:22 16 Cell/uL F 0.0-400.0 Eosinophils/100 leukocytes in Blood by Automated count 2023-10-23 23:02:22 1.1 % F Monocytes/100 leukocytes in Blood by Automated count 2023-10-23 23:02:22 7.8 % F Leukocytes [#/volume] in Blood by Automated count 2023-10-23 23:02:22 7.8 x 10^3 cells/uL F 4.0-11.0 Neutrophils [#/volume] in Blood by Automated count 2023-10-23 23:02:22 6231 Cell/uL F 2000.0-8800.0 Lymphocytes [#/volume] in Blood by Automated count 2023-10-23 23:02:22 823 Cell/uL F 620.0-3660.0 Lymphocytes/100 leukocytes in Blood by Automated count 2023-10-23 23:02:22 10.6 % F Basophils/100 leukocytes in Blood by Automated count 2023-10-23 23:02:22 0.2 % F Eosinophils/100 leukocytes in Blood by Automated count 2023-10-23 23:02:22 1.1 % F Neutrophils/100 leukocytes in Blood by Automated count 2023-10-23 23:02:22 80.3 % F Monocytes/100 leukocytes in Blood by Automated count 2023-10-23 23:02:22 7.8 % F Leukocytes [#/volume] in Blood by Automated count 2023-10-23 23:02:22 7.8 x 10^3 cells/uL F 4.0-11.0 Basophils [#/volume] in Blood by Automated count 2023-10-23 23:02:22 16 Cell/uL F 0.0-400.0 Eosinophils [#/volume] in Blood by Automated count 2023-10-23 23:02:22 85 Cell/uL F 0.0-700.0 Monocytes [#/volume] in Blood by Automated count 2023-10-23 23:02:22 605 Cell/uL F 0.0-1100.0 Lymphocytes [#/volume] in Blood by Automated count 2023-10-23 23:02:22 823 Cell/uL F 620.0-3660.0 Neutrophils [#/volume] in Blood by Automated count 2023-10-23 23:02:22 6231 Cell/uL F 2000.0-8800.0 Leukocytes [#/volume] in Blood by Automated count 2023-09-25 13:33:39 6.8 x 10^3 cells/uL F 4.0-11.0 Basophils [#/volume] in Blood by Automated count 2023-09-25 13:33:39 68 Cell/uL F 0.0-400.0 Eosinophils [#/volume] in Blood by Automated count 2023-09-25 13:33:39 68 Cell/uL F 0.0-700.0 Monocytes [#/volume] in Blood by Automated count 2023-09-25 13:33:39 560 Cell/uL F 0.0-1100.0 Lymphocytes [#/volume] in Blood by Automated count 2023-09-25 13:33:39 1229 Cell/uL F 620.0-3660.0 Neutrophils [#/volume] in Blood by Automated count 2023-09-25 13:33:39 4904 Cell/uL F 2000.0-8800.0 Basophils/100 leukocytes in Blood by Automated count 2023-09-25 13:33:39 1 % F Neutrophils/100 leukocytes in Blood by Automated count 2023-09-25 13:33:39 71.8 % F Monocytes/100 leukocytes in Blood by Automated count 2023-09-25 13:33:39 8.2 % F Eosinophils/100 leukocytes in Blood by Automated count 2023-09-25 13:33:39 1 % F Leukocytes [#/volume] in Blood by Automated count 2023-09-25 13:33:39 6.8 x 10^3 cells/uL F 4.0-11.0 Lymphocytes [#/volume] in Blood by Automated count 2023-09-25 13:33:39 1229 Cell/uL F 620.0-3660.0 Basophils [#/volume] in Blood by Automated count 2023-09-25 13:33:39 68 Cell/uL F 0.0-400.0 Eosinophils [#/volume] in Blood by Automated count 2023-09-25 13:33:39 68 Cell/uL F 0.0-700.0 Lymphocytes/100 leukocytes in Blood by Automated count 2023-09-25 13:33:39 18 % F Neutrophils [#/volume] in Blood by Automated count 2023-09-25 13:33:39 4904 Cell/uL F 2000.0-8800.0 Monocytes [#/volume] in Blood by Automated count 2023-09-25 13:33:39 560 Cell/uL F 0.0-1100.0 Lymphocytes/100 leukocytes in Blood by Automated count 2023-09-25 13:33:39 18 % F Eosinophils/100 leukocytes in Blood by Automated count 2023-09-25 13:33:39 1 % F Basophils/100 leukocytes in Blood by Automated count 2023-09-25 13:33:39 1 % F Monocytes/100 leukocytes in Blood by Automated count 2023-09-25 13:33:39 8.2 % F Neutrophils/100 leukocytes in Blood by Automated count 2023-09-25 13:33:39 71.8 % F Basophils/100 leukocytes in Blood by Automated count 2023-08-27 01:36:52 0.2 % F Eosinophils/100 leukocytes in Blood by Automated count 2023-08-27 01:36:52 2.2 % F Neutrophils/100 leukocytes in Blood by Automated count 2023-08-27 01:36:52 79 % F Monocytes/100 leukocytes in Blood by Automated count 2023-08-27 01:36:52 7.8 % F Lymphocytes/100 leukocytes in Blood by Automated count 2023-08-27 01:36:52 10.8 % F Leukocytes [#/volume] in Blood by Automated count 2023-08-27 01:36:52 9.2 x 10^3 cells/uL F 4.0-11.0 Basophils [#/volume] in Blood by Automated count 2023-08-27 01:36:52 18 Cell/uL F 0.0-400.0 Eosinophils [#/volume] in Blood by Automated count 2023-08-27 01:36:52 203 Cell/uL F 0.0-700.0 Monocytes [#/volume] in Blood by Automated count 2023-08-27 01:36:52 718 Cell/uL F 0.0-1100.0 Lymphocytes [#/volume] in Blood by Automated count 2023-08-27 01:36:52 995 Cell/uL F 620.0-3660.0 Neutrophils [#/volume] in Blood by Automated count 2023-08-27 01:36:52 7276 Cell/uL F 2000.0-8800.0 Lymphocytes/100 leukocytes in Blood by Automated count 2023-07-24 22:29:42 16.9 % F Neutrophils/100 leukocytes in Blood by Automated count 2023-07-24 22:29:42 72.8 % F Monocytes/100 leukocytes in Blood by Automated count 2023-07-24 22:29:42 8.7 % F Basophils/100 leukocytes in Blood by Automated count 2023-07-24 22:29:42 0.6 % F Eosinophils/100 leukocytes in Blood by Automated count 2023-07-24 22:29:42 0.9 % F Leukocytes [#/volume] in Blood by Automated count 2023-07-24 22:29:42 5.9 x 10^3 cells/uL F 4.0-11.0 Basophils [#/volume] in Blood by Automated count 2023-07-24 22:29:42 35 Cell/uL F 0.0-400.0 Eosinophils [#/volume] in Blood by Automated count 2023-07-24 22:29:42 53 Cell/uL F 0.0-700.0 Monocytes [#/volume] in Blood by Automated count 2023-07-24 22:29:42 512 Cell/uL F 0.0-1100.0 Lymphocytes [#/volume] in Blood by Automated count 2023-07-24 22:29:42 995 Cell/uL F 620.0-3660.0 Neutrophils [#/volume] in Blood by Automated count 2023-07-24 22:29:42 4288 Cell/uL F 2000.0-8800.0 Neutrophils/100 leukocytes in Blood by Automated count 2023-06-28 15:13:34 76.8 % F Eosinophils/100 leukocytes in Blood by Automated count 2023-06-28 15:13:34 2 % F Basophils/100 leukocytes in Blood by Automated count 2023-06-28 15:13:34 1 % F Monocytes/100 leukocytes in Blood by Automated count 2023-06-28 15:13:34 6.9 % F Lymphocytes/100 leukocytes in Blood by Automated count 2023-06-28 15:13:34 13.4 % F Leukocytes [#/volume] in Blood by Automated count 2023-06-28 15:13:34 6 x 10^3 cells/uL F 4.0-11.0 Basophils [#/volume] in Blood by Automated count 2023-06-28 15:13:34 60 Cell/uL F 0.0-400.0 Eosinophils [#/volume] in Blood by Automated count 2023-06-28 15:13:34 120 Cell/uL F 0.0-700.0 Monocytes [#/volume] in Blood by Automated count 2023-06-28 15:13:34 415 Cell/uL F 0.0-1100.0 Lymphocytes [#/volume] in Blood by Automated count 2023-06-28 15:13:34 805 Cell/uL F 620.0-3660.0 Neutrophils [#/volume] in Blood by Automated count 2023-06-28 15:13:34 4616 Cell/uL F 2000.0-8800.0 Leukocytes [#/volume] in Blood by Automated count 2023-06-28 15:13:34 6 x 10^3 cells/uL F 4.0-11.0 Basophils/100 leukocytes in Blood by Automated count 2023-06-28 15:13:34 1 % F Neutrophils/100 leukocytes in Blood by Automated count 2023-06-28 15:13:34 76.8 % F Lymphocytes/100 leukocytes in Blood by Automated count 2023-06-28 15:13:34 13.4 % F Monocytes/100 leukocytes in Blood by Automated count 2023-06-28 15:13:34 6.9 % F Eosinophils/100 leukocytes in Blood by Automated count 2023-06-28 15:13:34 2 % F Neutrophils [#/volume] in Blood by Automated count 2023-06-28 15:13:34 4616 Cell/uL F 2000.0-8800.0 Lymphocytes [#/volume] in Blood by Automated count 2023-06-28 15:13:34 805 Cell/uL F 620.0-3660.0 Monocytes [#/volume] in Blood by Automated count 2023-06-28 15:13:34 415 Cell/uL F 0.0-1100.0 Eosinophils [#/volume] in Blood by Automated count 2023-06-28 15:13:34 120 Cell/uL F 0.0-700.0 Basophils [#/volume] in Blood by Automated count 2023-06-28 15:13:34 60 Cell/uL F 0.0-400.0 Eosinophils/100 leukocytes in Blood by Automated count 2023-05-22 19:50:44 0.8 % F Basophils/100 leukocytes in Blood by Automated count 2023-05-22 19:50:44 0.3 % F Lymphocytes [#/volume] in Blood by Automated count 2023-05-22 19:50:44 787 Cell/uL F 620.0-3660.0 Neutrophils [#/volume] in Blood by Automated count 2023-05-22 19:50:44 5156 Cell/uL F 2000.0-8800.0 Basophils/100 leukocytes in Blood by Automated count 2023-05-22 19:50:44 0.3 % F Neutrophils [#/volume] in Blood by Automated count 2023-05-22 19:50:44 5156 Cell/uL F 2000.0-8800.0 Eosinophils/100 leukocytes in Blood by Automated count 2023-05-22 19:50:44 0.8 % F Lymphocytes [#/volume] in Blood by Automated count 2023-05-22 19:50:44 787 Cell/uL F 620.0-3660.0 Lymphocytes/100 leukocytes in Blood by Automated count 2023-05-22 19:50:42 11.9 % F Monocytes/100 leukocytes in Blood by Automated count 2023-05-22 19:50:42 9 % F Neutrophils/100 leukocytes in Blood by Automated count 2023-05-22 19:50:42 78 % F Leukocytes [#/volume] in Blood by Automated count 2023-05-22 19:50:42 6.6 x 10^3 cells/uL F 4.0-11.0 Eosinophils [#/volume] in Blood by Automated count 2023-05-22 19:50:42 53 Cell/uL F 0.0-700.0 Basophils [#/volume] in Blood by Automated count 2023-05-22 19:50:42 20 Cell/uL F 0.0-400.0 Monocytes [#/volume] in Blood by Automated count 2023-05-22 19:50:42 595 Cell/uL F 0.0-1100.0 Monocytes/100 leukocytes in Blood by Automated count 2023-05-22 19:50:42 9 % F Leukocytes [#/volume] in Blood by Automated count 2023-05-22 19:50:42 6.6 x 10^3 cells/uL F 4.0-11.0 Basophils [#/volume] in Blood by Automated count 2023-05-22 19:50:42 20 Cell/uL F 0.0-400.0 Eosinophils [#/volume] in Blood by Automated count 2023-05-22 19:50:42 53 Cell/uL F 0.0-700.0 Neutrophils/100 leukocytes in Blood by Automated count 2023-05-22 19:50:42 78 % F Lymphocytes/100 leukocytes in Blood by Automated count 2023-05-22 19:50:42 11.9 % F Monocytes [#/volume] in Blood by Automated count 2023-05-22 19:50:42 595 Cell/uL F 0.0-1100.0 Basophils/100 leukocytes in Blood by Automated count 2023-04-25 14:17:04 0.3 % F Lymphocytes/100 leukocytes in Blood by Automated count 2023-04-25 14:17:04 12.5 % F Eosinophils/100 leukocytes in Blood by Automated count 2023-04-25 14:17:04 1.2 % F Neutrophils/100 leukocytes in Blood by Automated count 2023-04-25 14:17:04 79.6 % F Monocytes/100 leukocytes in Blood by Automated count 2023-04-25 14:17:04 6.4 % F Eosinophils [#/volume] in Blood by Automated count 2023-04-25 14:17:04 75 Cell/uL F 0.0-700.0 Monocytes [#/volume] in Blood by Automated count 2023-04-25 14:17:04 397 Cell/uL F 0.0-1100.0 Lymphocytes [#/volume] in Blood by Automated count 2023-04-25 14:17:04 776 Cell/uL F 620.0-3660.0 Neutrophils [#/volume] in Blood by Automated count 2023-04-25 14:17:04 4943 Cell/uL F 2000.0-8800.0 Lymphocytes/100 leukocytes in Blood by Automated count 2023-04-25 14:17:04 12.5 % F Lymphocytes [#/volume] in Blood by Automated count 2023-04-25 14:17:04 776 Cell/uL F 620.0-3660.0 Monocytes [#/volume] in Blood by Automated count 2023-04-25 14:17:04 397 Cell/uL F 0.0-1100.0 Basophils/100 leukocytes in Blood by Automated count 2023-04-25 14:17:04 0.3 % F Neutrophils/100 leukocytes in Blood by Automated count 2023-04-25 14:17:04 79.6 % F Monocytes/100 leukocytes in Blood by Automated count 2023-04-25 14:17:04 6.4 % F Eosinophils/100 leukocytes in Blood by Automated count 2023-04-25 14:17:04 1.2 % F Eosinophils [#/volume] in Blood by Automated count 2023-04-25 14:17:04 75 Cell/uL F 0.0-700.0 Neutrophils [#/volume] in Blood by Automated count 2023-04-25 14:17:04 4943 Cell/uL F 2000.0-8800.0 Leukocytes [#/volume] in Blood by Automated count 2023-04-25 14:17:02 6.2 x 10^3 cells/uL F 4.0-11.0 Basophils [#/volume] in Blood by Automated count 2023-04-25 14:17:02 19 Cell/uL F 0.0-400.0 Leukocytes [#/volume] in Blood by Automated count 2023-04-25 14:17:02 6.2 x 10^3 cells/uL F 4.0-11.0 Basophils [#/volume] in Blood by Automated count 2023-04-25 14:17:02 19 Cell/uL F 0.0-400.0 Basophils/100 leukocytes in Blood by Automated count 2023-04-04 04:18:44 0.3 % F Eosinophils/100 leukocytes in Blood by Automated count 2023-04-04 04:18:44 1.4 % F Neutrophils/100 leukocytes in Blood by Automated count 2023-04-04 04:18:44 77.4 % F Monocytes/100 leukocytes in Blood by Automated count 2023-04-04 04:18:44 6.8 % F Lymphocytes/100 leukocytes in Blood by Automated count 2023-04-04 04:18:44 14.2 % F Leukocytes [#/volume] in Blood by Automated count 2023-04-04 04:18:44 6.6 x 10^3 cells/uL F 4.0-11.0 Basophils [#/volume] in Blood by Automated count 2023-04-04 04:18:44 20 Cell/uL F 0.0-400.0 Monocytes [#/volume] in Blood by Automated count 2023-04-04 04:18:44 447 Cell/uL F 0.0-1100.0 Lymphocytes [#/volume] in Blood by Automated count 2023-04-04 04:18:44 934 Cell/uL F 620.0-3660.0 Neutrophils [#/volume] in Blood by Automated count 2023-04-04 04:18:44 5093 Cell/uL F 2000.0-8800.0 Eosinophils [#/volume] in Blood by Automated count 2023-04-04 04:18:44 92 Cell/uL F 0.0-700.0 Leukocytes [#/volume] in Blood by Automated count 2023-02-25 20:15:23 8.3 x 10^3 cells/uL F 4.0-11.0 Eosinophils [#/volume] in Blood by Automated count 2023-02-25 20:15:23 42 Cell/uL F 0.0-700.0 Basophils [#/volume] in Blood by Automated count 2023-02-25 20:15:23 8 Cell/uL F 0.0-400.0 Monocytes [#/volume] in Blood by Automated count 2023-02-25 20:15:23 682 Cell/uL F 0.0-1100.0 Neutrophils [#/volume] in Blood by Automated count 2023-02-25 20:15:23 6664 Cell/uL F 2000.0-8800.0 Eosinophils [#/volume] in Blood by Automated count 2023-02-25 20:15:23 42 Cell/uL F 0.0-700.0 Leukocytes [#/volume] in Blood by Automated count 2023-02-25 20:15:23 8.3 x 10^3 cells/uL F 4.0-11.0 Neutrophils [#/volume] in Blood by Automated count 2023-02-25 20:15:23 6664 Cell/uL F 2000.0-8800.0 Monocytes [#/volume] in Blood by Automated count 2023-02-25 20:15:23 682 Cell/uL F 0.0-1100.0 Basophils [#/volume] in Blood by Automated count 2023-02-25 20:15:23 8 Cell/uL F 0.0-400.0 Eosinophils/100 leukocytes in Blood by Automated count 2023-02-25 20:15:20 0.5 % F Basophils/100 leukocytes in Blood by Automated count 2023-02-25 20:15:20 0.1 % F Neutrophils/100 leukocytes in Blood by Automated count 2023-02-25 20:15:20 80.1 % F Lymphocytes/100 leukocytes in Blood by Automated count 2023-02-25 20:15:20 11 % F Monocytes/100 leukocytes in Blood by Automated count 2023-02-25 20:15:20 8.2 % F Lymphocytes [#/volume] in Blood by Automated count 2023-02-25 20:15:20 915 Cell/uL F 620.0-3660.0 Neutrophils/100 leukocytes in Blood by Automated count 2023-02-25 20:15:20 80.1 % F Lymphocytes/100 leukocytes in Blood by Automated count 2023-02-25 20:15:20 11 % F Monocytes/100 leukocytes in Blood by Automated count 2023-02-25 20:15:20 8.2 % F Eosinophils/100 leukocytes in Blood by Automated count 2023-02-25 20:15:20 0.5 % F Lymphocytes [#/volume] in Blood by Automated count 2023-02-25 20:15:20 915 Cell/uL F 620.0-3660.0 Basophils/100 leukocytes in Blood by Automated count 2023-02-25 20:15:20 0.1 % F Lymphocytes/100 leukocytes in Blood by Automated count 2023-01-22 04:32:40 12.8 % F Lymphocytes [#/volume] in Blood by Automated count 2023-01-22 04:32:40 858 Cell/uL F 620.0-3660.0 Lymphocytes/100 leukocytes in Blood by Automated count 2023-01-22 04:32:40 12.8 % F Lymphocytes [#/volume] in Blood by Automated count 2023-01-22 04:32:40 858 Cell/uL F 620.0-3660.0 Neutrophils/100 leukocytes in Blood by Automated count 2023-01-22 04:32:37 77.9 % F Eosinophils/100 leukocytes in Blood by Automated count 2023-01-22 04:32:37 1.1 % F Basophils/100 leukocytes in Blood by Automated count 2023-01-22 04:32:37 0.2 % F Monocytes/100 leukocytes in Blood by Automated count 2023-01-22 04:32:37 7.9 % F Leukocytes [#/volume] in Blood by Automated count 2023-01-22 04:32:37 6.7 x 10^3 cells/uL F 4.0-11.0 Basophils [#/volume] in Blood by Automated count 2023-01-22 04:32:37 13 Cell/uL F 0.0-400.0 Eosinophils [#/volume] in Blood by Automated count 2023-01-22 04:32:37 74 Cell/uL F 0.0-700.0 Monocytes [#/volume] in Blood by Automated count 2023-01-22 04:32:37 529 Cell/uL F 0.0-1100.0 Neutrophils [#/volume] in Blood by Automated count 2023-01-22 04:32:37 5219 Cell/uL F 2000.0-8800.0 Monocytes/100 leukocytes in Blood by Automated count 2023-01-22 04:32:37 7.9 % F Monocytes [#/volume] in Blood by Automated count 2023-01-22 04:32:37 529 Cell/uL F 0.0-1100.0 Neutrophils [#/volume] in Blood by Automated count 2023-01-22 04:32:37 5219 Cell/uL F 2000.0-8800.0 Basophils [#/volume] in Blood by Automated count 2023-01-22 04:32:37 13 Cell/uL F 0.0-400.0 Neutrophils/100 leukocytes in Blood by Automated count 2023-01-22 04:32:37 77.9 % F Basophils/100 leukocytes in Blood by Automated count 2023-01-22 04:32:37 0.2 % F Eosinophils/100 leukocytes in Blood by Automated count 2023-01-22 04:32:37 1.1 % F Leukocytes [#/volume] in Blood by Automated count 2023-01-22 04:32:37 6.7 x 10^3 cells/uL F 4.0-11.0 Eosinophils [#/volume] in Blood by Automated count 2023-01-22 04:32:37 74 Cell/uL F 0.0-700.0 Monocytes/100 leukocytes in Blood by Automated count 2022-12-27 20:08:41 8.8 % F Eosinophils/100 leukocytes in Blood by Automated count 2022-12-27 20:08:41 0.9 % F Basophils/100 leukocytes in Blood by Automated count 2022-12-27 20:08:41 0.2 % F Lymphocytes/100 leukocytes in Blood by Automated count 2022-12-27 20:08:41 11.1 % F Neutrophils/100 leukocytes in Blood by Automated count 2022-12-27 20:08:41 78.9 % F Leukocytes [#/volume] in Blood by Automated count 2022-12-27 20:08:41 7.3 x 10^3 cells/uL F 4.0-11.0 Basophils [#/volume] in Blood by Automated count 2022-12-27 20:08:41 15 Cell/uL F 0.0-400.0 Eosinophils [#/volume] in Blood by Automated count 2022-12-27 20:08:41 66 Cell/uL F 0.0-700.0 Monocytes [#/volume] in Blood by Automated count 2022-12-27 20:08:41 642 Cell/uL F 0.0-1100.0 Neutrophils [#/volume] in Blood by Automated count 2022-12-27 20:08:41 5752 Cell/uL F 2000.0-8800.0 Lymphocytes [#/volume] in Blood by Automated count 2022-12-27 20:08:41 809 Cell/uL F 620.0-3660.0 Monocytes/100 leukocytes in Blood by Automated count 2022-11-23 23:44:35 7.1 % F Eosinophils/100 leukocytes in Blood by Automated count 2022-11-23 23:44:35 0.6 % F Lymphocytes/100 leukocytes in Blood by Automated count 2022-11-23 23:44:35 14.2 % F Basophils/100 leukocytes in Blood by Automated count 2022-11-23 23:44:35 0.6 % F Neutrophils/100 leukocytes in Blood by Automated count 2022-11-23 23:44:35 77.6 % F Leukocytes [#/volume] in Blood by Automated count 2022-11-23 23:44:35 5.8 x 10^3 cells/uL F 4.0-11.0 Basophils [#/volume] in Blood by Automated count 2022-11-23 23:44:35 35 Cell/uL F 0.0-400.0 Eosinophils [#/volume] in Blood by Automated count 2022-11-23 23:44:35 35 Cell/uL F 0.0-700.0 Monocytes [#/volume] in Blood by Automated count 2022-11-23 23:44:35 415 Cell/uL F 0.0-1100.0 Lymphocytes [#/volume] in Blood by Automated count 2022-11-23 23:44:35 829 Cell/uL F 620.0-3660.0 Neutrophils [#/volume] in Blood by Automated count 2022-11-23 23:44:35 4532 Cell/uL F 2000.0-8800.0 Lymphocytes/100 leukocytes in Blood by Automated count 2022-10-29 17:04:34 15.2 % F Basophils [#/volume] in Blood by Automated count 2022-10-29 17:04:34 43 Cell/uL F 0.0-400.0 Eosinophils [#/volume] in Blood by Automated count 2022-10-29 17:04:34 62 Cell/uL F 0.0-700.0 Monocytes [#/volume] in Blood by Automated count 2022-10-29 17:04:34 508 Cell/uL F 0.0-1100.0 Lymphocytes/100 leukocytes in Blood by Automated count 2022-10-29 17:04:34 15.2 % F Basophils [#/volume] in Blood by Automated count 2022-10-29 17:04:34 43 Cell/uL F 0.0-400.0 Eosinophils [#/volume] in Blood by Automated count 2022-10-29 17:04:34 62 Cell/uL F 0.0-700.0 Monocytes [#/volume] in Blood by Automated count 2022-10-29 17:04:34 508 Cell/uL F 0.0-1100.0 Basophils/100 leukocytes in Blood by Automated count 2022-10-29 17:04:33 0.7 % F Eosinophils/100 leukocytes in Blood by Automated count 2022-10-29 17:04:33 1 % F Leukocytes [#/volume] in Blood by Automated count 2022-10-29 17:04:33 6.2 x 10^3 cells/uL F 4.0-11.0 Lymphocytes [#/volume] in Blood by Automated count 2022-10-29 17:04:33 941 Cell/uL F 620.0-3660.0 Monocytes/100 leukocytes in Blood by Automated count 2022-10-29 17:04:33 8.2 % F Neutrophils/100 leukocytes in Blood by Automated count 2022-10-29 17:04:33 74.9 % F Neutrophils [#/volume] in Blood by Automated count 2022-10-29 17:04:33 4636 Cell/uL F 2000.0-8800.0 Monocytes/100 leukocytes in Blood by Automated count 2022-10-29 17:04:33 8.2 % F Neutrophils/100 leukocytes in Blood by Automated count 2022-10-29 17:04:33 74.9 % F Basophils/100 leukocytes in Blood by Automated count 2022-10-29 17:04:33 0.7 % F Eosinophils/100 leukocytes in Blood by Automated count 2022-10-29 17:04:33 1 % F Leukocytes [#/volume] in Blood by Automated count 2022-10-29 17:04:33 6.2 x 10^3 cells/uL F 4.0-11.0 Lymphocytes [#/volume] in Blood by Automated count 2022-10-29 17:04:33 941 Cell/uL F 620.0-3660.0 Neutrophils [#/volume] in Blood by Automated count 2022-10-29 17:04:33 4636 Cell/uL F 2000.0-8800.0 Lymphocytes/100 leukocytes in Blood by Automated count 2022-09-27 16:57:38 13.5 % F Lymphocytes [#/volume] in Blood by Automated count 2022-09-27 16:57:38 934 Cell/uL F 620.0-3660.0 Basophils/100 leukocytes in Blood by Automated count 2022-09-27 16:57:36 0.5 % F Monocytes/100 leukocytes in Blood by Automated count 2022-09-27 16:57:36 6.8 % F Eosinophils/100 leukocytes in Blood by Automated count 2022-09-27 16:57:36 2 % F Neutrophils/100 leukocytes in Blood by Automated count 2022-09-27 16:57:36 77 % F Leukocytes [#/volume] in Blood by Automated count 2022-09-27 16:57:36 6.9 x 10^3 cells/uL F 4.0-11.0 Basophils [#/volume] in Blood by Automated count 2022-09-27 16:57:36 35 Cell/uL F 0.0-400.0 Eosinophils [#/volume] in Blood by Automated count 2022-09-27 16:57:36 138 Cell/uL F 0.0-700.0 Monocytes [#/volume] in Blood by Automated count 2022-09-27 16:57:36 471 Cell/uL F 0.0-1100.0 Neutrophils [#/volume] in Blood by Automated count 2022-09-27 16:57:36 5328 Cell/uL F 2000.0-8800.0 Lymphocytes/100 leukocytes in Blood by Automated count 2022-08-28 00:52:20 11.2 % F Monocytes/100 leukocytes in Blood by Automated count 2022-08-28 00:52:20 7.1 % F Eosinophils/100 leukocytes in Blood by Automated count 2022-08-28 00:52:20 1.2 % F Neutrophils/100 leukocytes in Blood by Automated count 2022-08-28 00:52:20 80 % F Basophils/100 leukocytes in Blood by Automated count 2022-08-28 00:52:20 0.4 % F Leukocytes [#/volume] in Blood by Automated count 2022-08-28 00:52:20 9.3 x 10^3 cells/uL F 4.0-11.0 Basophils [#/volume] in Blood by Automated count 2022-08-28 00:52:20 37 Cell/uL F 0.0-400.0 Eosinophils [#/volume] in Blood by Automated count 2022-08-28 00:52:20 112 Cell/uL F 0.0-700.0 Monocytes [#/volume] in Blood by Automated count 2022-08-28 00:52:20 662 Cell/uL F 0.0-1100.0 Lymphocytes [#/volume] in Blood by Automated count 2022-08-28 00:52:20 1045 Cell/uL F 620.0-3660.0 Neutrophils [#/volume] in Blood by Automated count 2022-08-28 00:52:20 7464 Cell/uL F 2000.0-8800.0 Basophils/100 leukocytes in Blood by Automated count 2022-08-28 00:52:20 0.4 % F Lymphocytes/100 leukocytes in Blood by Automated count 2022-08-28 00:52:20 11.2 % F Eosinophils/100 leukocytes in Blood by Automated count 2022-08-28 00:52:20 1.2 % F Monocytes [#/volume] in Blood by Automated count 2022-08-28 00:52:20 662 Cell/uL F 0.0-1100.0 Eosinophils [#/volume] in Blood by Automated count 2022-08-28 00:52:20 112 Cell/uL F 0.0-700.0 Neutrophils/100 leukocytes in Blood by Automated count 2022-08-28 00:52:20 80 % F Monocytes/100 leukocytes in Blood by Automated count 2022-08-28 00:52:20 7.1 % F Leukocytes [#/volume] in Blood by Automated count 2022-08-28 00:52:20 9.3 x 10^3 cells/uL F 4.0-11.0 Neutrophils [#/volume] in Blood by Automated count 2022-08-28 00:52:20 7464 Cell/uL F 2000.0-8800.0 Lymphocytes [#/volume] in Blood by Automated count 2022-08-28 00:52:20 1045 Cell/uL F 620.0-3660.0 Basophils [#/volume] in Blood by Automated count 2022-08-28 00:52:20 37 Cell/uL F 0.0-400.0 Lymphocytes/100 leukocytes in Blood by Automated count 2022-07-25 00:45:21 12.4 % F Neutrophils/100 leukocytes in Blood by Automated count 2022-07-25 00:45:21 78.3 % F Eosinophils/100 leukocytes in Blood by Automated count 2022-07-25 00:45:21 1.1 % F Monocytes/100 leukocytes in Blood by Automated count 2022-07-25 00:45:21 8 % F Basophils/100 leukocytes in Blood by Automated count 2022-07-25 00:45:21 0.4 % F Leukocytes [#/volume] in Blood by Automated count 2022-07-25 00:45:21 7.8 x 10^3 cells/uL F 4.0-11.0 Basophils [#/volume] in Blood by Automated count 2022-07-25 00:45:21 31.08 Cell/uL F 0.0-400.0 Eosinophils [#/volume] in Blood by Automated count 2022-07-25 00:45:21 85.47 Cell/uL F 0.0-700.0 Monocytes [#/volume] in Blood by Automated count 2022-07-25 00:45:21 621.6 Cell/uL F 0.0-1100.0 Lymphocytes [#/volume] in Blood by Automated count 2022-07-25 00:45:21 963.48 Cell/uL F 620.0-3660.0 Neutrophils [#/volume] in Blood by Automated count 2022-07-25 00:45:21 6083.91 Cell/uL F 2000.0-8800.0 Lymphocytes/100 leukocytes in Blood by Automated count 2022-06-22 20:46:12 12.7 % F Monocytes/100 leukocytes in Blood by Automated count 2022-06-22 20:46:12 7.6 % F Basophils/100 leukocytes in Blood by Automated count 2022-06-22 20:46:12 0.5 % F Eosinophils/100 leukocytes in Blood by Automated count 2022-06-22 20:46:12 1.7 % F Neutrophils/100 leukocytes in Blood by Automated count 2022-06-22 20:46:12 77.5 % F Leukocytes [#/volume] in Blood by Automated count 2022-06-22 20:46:12 6.4 x 10^3 cells/uL F 4.5-11.0 Basophils [#/volume] in Blood by Automated count 2022-06-22 20:46:12 32.1 Cell/uL F 0.0-400.0 Eosinophils [#/volume] in Blood by Automated count 2022-06-22 20:46:12 109.14 Cell/uL F 0.0-700.0 Monocytes [#/volume] in Blood by Automated count 2022-06-22 20:46:12 487.92 Cell/uL F 0.0-1100.0 Neutrophils [#/volume] in Blood by Automated count 2022-06-22 20:46:12 4975.5 Cell/uL F 2000.0-8800.0 Lymphocytes [#/volume] in Blood by Automated count 2022-06-22 20:46:12 815.34 Cell/uL F 1100.0-4800.0 Monocytes/100 leukocytes in Blood by Automated count 2022-05-25 21:36:18 8.5 % F Lymphocytes/100 leukocytes in Blood by Automated count 2022-05-25 21:36:18 12.1 % F Eosinophils/100 leukocytes in Blood by Automated count 2022-05-25 21:36:18 0.5 % F Neutrophils/100 leukocytes in Blood by Automated count 2022-05-25 21:36:18 78.8 % F Basophils/100 leukocytes in Blood by Automated count 2022-05-25 21:36:18 0.1 % F Leukocytes [#/volume] in Blood by Automated count 2022-05-25 21:36:18 7.9 x 10^3 cells/uL F 4.5-11.0 Eosinophils [#/volume] in Blood by Automated count 2022-05-25 21:36:18 39.5 Cell/uL F 0.0-700.0 Basophils [#/volume] in Blood by Automated count 2022-05-25 21:36:18 7.9 Cell/uL F 0.0-400.0 Monocytes [#/volume] in Blood by Automated count 2022-05-25 21:36:18 671.5 Cell/uL F 0.0-1100.0 Lymphocytes [#/volume] in Blood by Automated count 2022-05-25 21:36:18 955.9 Cell/uL F 1100.0-4800.0 Neutrophils [#/volume] in Blood by Automated count 2022-05-25 21:36:18 6225.2 Cell/uL F 2000.0-8800.0 Basophils/100 leukocytes in Blood by Automated count 2022-05-25 21:36:18 0.1 % F Neutrophils/100 leukocytes in Blood by Automated count 2022-05-25 21:36:18 78.8 % F Lymphocytes/100 leukocytes in Blood by Automated count 2022-05-25 21:36:18 12.1 % F Eosinophils/100 leukocytes in Blood by Automated count 2022-05-25 21:36:18 0.5 % F Monocytes/100 leukocytes in Blood by Automated count 2022-05-25 21:36:18 8.5 % F Monocytes [#/volume] in Blood by Automated count 2022-05-25 21:36:18 671.5 Cell/uL F 0.0-1100.0 Basophils [#/volume] in Blood by Automated count 2022-05-25 21:36:18 7.9 Cell/uL F 0.0-400.0 Eosinophils [#/volume] in Blood by Automated count 2022-05-25 21:36:18 39.5 Cell/uL F 0.0-700.0 Leukocytes [#/volume] in Blood by Automated count 2022-05-25 21:36:18 7.9 x 10^3 cells/uL F 4.5-11.0 Neutrophils [#/volume] in Blood by Automated count 2022-05-25 21:36:18 6225.2 Cell/uL F 2000.0-8800.0 Lymphocytes [#/volume] in Blood by Automated count 2022-05-25 21:36:18 955.9 Cell/uL F 1100.0-4800.0 Lymphocytes/100 leukocytes in Blood by Automated count 2022-04-24 20:44:19 12.7 % F Basophils/100 leukocytes in Blood by Automated count 2022-04-24 20:44:19 0.7 % F Eosinophils/100 leukocytes in Blood by Automated count 2022-04-24 20:44:19 1.3 % F Neutrophils/100 leukocytes in Blood by Automated count 2022-04-24 20:44:19 77.5 % F Monocytes/100 leukocytes in Blood by Automated count 2022-04-24 20:44:19 7.8 % F Leukocytes [#/volume] in Blood by Automated count 2022-04-24 20:44:19 6 x 10^3 cells/uL F 4.5-11.0 Basophils [#/volume] in Blood by Automated count 2022-04-24 20:44:19 42.07 Cell/uL F 0.0-400.0 Eosinophils [#/volume] in Blood by Automated count 2022-04-24 20:44:19 78.13 Cell/uL F 0.0-700.0 Monocytes [#/volume] in Blood by Automated count 2022-04-24 20:44:19 468.78 Cell/uL F 0.0-1100.0 Lymphocytes [#/volume] in Blood by Automated count 2022-04-24 20:44:19 763.27 Cell/uL F 1100.0-4800.0 Neutrophils [#/volume] in Blood by Automated count 2022-04-24 20:44:19 4657.75 Cell/uL F 2000.0-8800.0 Basophils [#/volume] in Blood by Automated count 2022-04-02 14:41:01 42.48 Cell/uL F 0.0-400.0 Neutrophils/100 leukocytes in Blood by Automated count 2022-04-02 14:41:00 81.5 % F Basophils/100 leukocytes in Blood by Automated count 2022-04-02 14:41:00 0.6 % F Lymphocytes/100 leukocytes in Blood by Automated count 2022-04-02 14:41:00 8.8 % F Eosinophils/100 leukocytes in Blood by Automated count 2022-04-02 14:41:00 1 % F Monocytes/100 leukocytes in Blood by Automated count 2022-04-02 14:41:00 8.2 % F Leukocytes [#/volume] in Blood by Automated count 2022-04-02 14:41:00 7.1 x 10^3 cells/uL F 4.5-11.0 Eosinophils [#/volume] in Blood by Automated count 2022-04-02 14:41:00 70.8 Cell/uL F 0.0-700.0 Monocytes [#/volume] in Blood by Automated count 2022-04-02 14:41:00 580.56 Cell/uL F 0.0-1100.0 Lymphocytes [#/volume] in Blood by Automated count 2022-04-02 14:41:00 623.04 Cell/uL F 1100.0-4800.0 Neutrophils [#/volume] in Blood by Automated count 2022-04-02 14:41:00 5770.2 Cell/uL F 2000.0-8800.0 Neutrophils [#/volume] in Blood by Automated count 2022-02-21 04:21:43 6593.4 Cell/uL F 2000.0-8800.0 Neutrophils [#/volume] in Blood by Automated count 2022-02-21 04:21:43 6593.4 Cell/uL F 2000.0-8800.0 Eosinophils/100 leukocytes in Blood by Automated count 2022-02-21 04:21:41 1.1 % F Monocytes/100 leukocytes in Blood by Automated count 2022-02-21 04:21:41 7.3 % F Neutrophils/100 leukocytes in Blood by Automated count 2022-02-21 04:21:41 81.4 % F Lymphocytes/100 leukocytes in Blood by Automated count 2022-02-21 04:21:41 9.7 % F Basophils/100 leukocytes in Blood by Automated count 2022-02-21 04:21:41 0.5 % F Leukocytes [#/volume] in Blood by Automated count 2022-02-21 04:21:41 8.1 x 10^3 cells/uL F 4.5-11.0 Basophils [#/volume] in Blood by Automated count 2022-02-21 04:21:41 40.5 Cell/uL F 0.0-400.0 Eosinophils [#/volume] in Blood by Automated count 2022-02-21 04:21:41 89.1 Cell/uL F 0.0-700.0 Monocytes [#/volume] in Blood by Automated count 2022-02-21 04:21:41 591.3 Cell/uL F 0.0-1100.0 Lymphocytes [#/volume] in Blood by Automated count 2022-02-21 04:21:41 785.7 Cell/uL F 1100.0-4800.0 Basophils/100 leukocytes in Blood by Automated count 2022-02-21 04:21:41 0.5 % F Lymphocytes/100 leukocytes in Blood by Automated count 2022-02-21 04:21:41 9.7 % F Neutrophils/100 leukocytes in Blood by Automated count 2022-02-21 04:21:41 81.4 % F Eosinophils/100 leukocytes in Blood by Automated count 2022-02-21 04:21:41 1.1 % F Eosinophils [#/volume] in Blood by Automated count 2022-02-21 04:21:41 89.1 Cell/uL F 0.0-700.0 Monocytes/100 leukocytes in Blood by Automated count 2022-02-21 04:21:41 7.3 % F Leukocytes [#/volume] in Blood by Automated count 2022-02-21 04:21:41 8.1 x 10^3 cells/uL F 4.5-11.0 Lymphocytes [#/volume] in Blood by Automated count 2022-02-21 04:21:41 785.7 Cell/uL F 1100.0-4800.0 Basophils [#/volume] in Blood by Automated count 2022-02-21 04:21:41 40.5 Cell/uL F 0.0-400.0 Monocytes [#/volume] in Blood by Automated count 2022-02-21 04:21:41 591.3 Cell/uL F 0.0-1100.0 MineralBone Disorder Description Draw Date Result/Unit Status Ref Range Result Comments CA CORRECTED 2024-03-07 09:50:00 9 mg/dL F CA CORRECTED 2024-03-07 09:50:00 9 mg/dL F CA*PO4 CORRCTD 2024-03-07 09:48:25 58.4 Calc F 21.0-53.0 CA/PHOS PRODUCT 2024-03-07 09:48:25 55.3 Calc F 21.0-53.0 CA/PHOS PRODUCT 2024-03-07 09:48:25 55.3 Calc F 21.0-53.0 CA*PO4 CORRCTD 2024-03-07 09:48:25 58.4 Calc F 21.0-53.0 25-Hydroxyvitamin D3+25-Hydroxyvitamin D2 [Mass/volume] in Serum or Plasma 2024-03-07 08:23:19 45.3 ng/mL F 25-Hydroxyvitamin D3+25-Hydroxyvitamin D2 [Mass/volume] in Serum or Plasma 2024-03-07 08:23:19 45.3 ng/mL F Calcium [Mass/volume] in Serum or Plasma 2024-03-07 06:46:32 8.5 mg/dL F 8.7-10.4 Calcium [Mass/volume] in Serum or Plasma 2024-03-07 06:46:32 8.5 mg/dL F 8.7-10.4 Phosphate [Mass/volume] in Serum or Plasma 2024-03-07 06:46:31 6.5 mg/dL F 2.4-5.1 Phosphate [Mass/volume] in Serum or Plasma 2024-03-07 06:46:31 6.5 mg/dL F 2.4-5.1 Magnesium [Mass/volume] in Serum or Plasma 2024-03-06 23:33:23 1.2 mg/dL F 1.3-2.7 Alkaline phosphatase [Enzymatic activity/volume] in Serum or Plasma 2024-03-06 23:33:23 77 U/L F 46.0-116.0 Alkaline phosphatase [Enzymatic activity/volume] in Serum or Plasma 2024-03-06 23:33:23 77 U/L F 46.0-116.0 Magnesium [Mass/volume] in Serum or Plasma 2024-03-06 23:33:23 1.2 mg/dL F 1.3-2.7 Parathyrin.intact [Mass/volume] in Serum or Plasma 2024-03-06 20:45:15 204 pg/mL F 18.0-80.0 Parathyrin.intact [Mass/volume] in Serum or Plasma 2024-03-06 20:45:15 204 pg/mL F 18.0-80.0 CA CORRECTED 2024-01-29 09:10:40 8.4 mg/dL F CA/PHOS PRODUCT 2024-01-29 09:09:00 61.5 Calc F 21.0-53.0 CA*PO4 CORRCTD 2024-01-29 09:09:00 63.3 Calc F 21.0-53.0 Calcium [Mass/volume] in Serum or Plasma 2024-01-29 08:04:30 8.2 mg/dL F 8.7-10.4 Phosphate [Mass/volume] in Serum or Plasma 2024-01-29 08:04:27 7.5 mg/dL F 2.4-5.1 Parathyrin.intact [Mass/volume] in Serum or Plasma 2024-01-29 02:08:18 266 pg/mL F 18.0-80.0 Magnesium [Mass/volume] in Serum or Plasma 2024-01-28 19:12:24 1.1 mg/dL F 1.3-2.7 Alkaline phosphatase [Enzymatic activity/volume] in Serum or Plasma 2024-01-28 19:12:24 51 U/L F 46.0-116.0 CA CORRECTED 2024-01-01 08:53:15 7.7 mg/dL F CA CORRECTED 2024-01-01 08:53:15 7.7 mg/dL F CA/PHOS PRODUCT 2024-01-01 08:52:09 64.8 Calc F 21.0-53.0 CA*PO4 CORRCTD 2024-01-01 08:52:09 69.1 Calc F 21.0-53.0 CA*PO4 CORRCTD 2024-01-01 08:52:09 69.1 Calc F 21.0-53.0 CA/PHOS PRODUCT 2024-01-01 08:52:09 64.8 Calc F 21.0-53.0 Calcium [Mass/volume] in Serum or Plasma 2024-01-01 07:50:11 7.2 mg/dL F 8.7-10.4 Calcium [Mass/volume] in Serum or Plasma 2024-01-01 07:50:11 7.2 mg/dL F 8.7-10.4 Parathyrin.intact [Mass/volume] in Serum or Plasma 2024-01-01 01:53:03 F Recollect - Augie tity not sufficient Parathyrin.intact [Mass/volume] in Serum or Plasma 2024-01-01 01:53:03 F Recollect - Augie tity not sufficient Alkaline phosphatase [Enzymatic activity/volume] in Serum or Plasma 2023-12-31 23:35:20 60 U/L F 46.0-116.0 Magnesium [Mass/volume] in Serum or Plasma 2023-12-31 23:35:20 1 mg/dL F 1.3-2.7 Phosphate [Mass/volume] in Serum or Plasma 2023-12-31 23:35:20 9 mg/dL F 2.4-5.1 Magnesium [Mass/volume] in Serum or Plasma 2023-12-31 23:35:20 1 mg/dL F 1.3-2.7 Phosphate [Mass/volume] in Serum or Plasma 2023-12-31 23:35:20 9 mg/dL F 2.4-5.1 Alkaline phosphatase [Enzymatic activity/volume] in Serum or Plasma 2023-12-31 23:35:20 60 U/L F 46.0-116.0 25-Hydroxyvitamin D3+25-Hydroxyvitamin D2 [Mass/volume] in Serum or Plasma 2023-11-20 07:42:05 38.6 ng/mL F CA CORRECTED 2023-11-20 05:30:06 8.5 mg/dL F CA/PHOS PRODUCT 2023-11-20 05:05:23 64 Calc F 21.0-53.0 CA*PO4 CORRCTD 2023-11-20 05:05:23 66.3 Calc F 21.0-53.0 Calcium [Mass/volume] in Serum or Plasma 2023-11-20 04:55:01 8.2 mg/dL F 8.7-10.4 Magnesium [Mass/volume] in Serum or Plasma 2023-11-20 00:49:13 1.3 mg/dL F 1.3-2.7 Phosphate [Mass/volume] in Serum or Plasma 2023-11-20 00:49:13 7.8 mg/dL F 2.4-5.1 Alkaline phosphatase [Enzymatic activity/volume] in Serum or Plasma 2023-11-20 00:49:13 69 U/L F 46.0-116.0 Parathyrin.intact [Mass/volume] in Serum or Plasma 2023-11-19 23:02:17 345 pg/mL F 18.0-80.0 CA CORRECTED 2023-10-24 05:48:37 7.9 mg/dL F CA CORRECTED 2023-10-24 05:48:37 7.9 mg/dL F CA*PO4 CORRCTD 2023-10-24 05:40:37 71.9 Calc F 21.0-53.0 CA/PHOS PRODUCT 2023-10-24 05:40:37 69.2 Calc F 21.0-53.0 CA/PHOS PRODUCT 2023-10-24 05:40:37 69.2 Calc F 21.0-53.0 CA*PO4 CORRCTD 2023-10-24 05:40:37 71.9 Calc F 21.0-53.0 Calcium [Mass/volume] in Serum or Plasma 2023-10-24 05:37:39 7.6 mg/dL F 8.7-10.4 Calcium [Mass/volume] in Serum or Plasma 2023-10-24 05:37:39 7.6 mg/dL F 8.7-10.4 Parathyrin.intact [Mass/volume] in Serum or Plasma 2023-10-24 01:51:28 353 pg/mL F 18.0-80.0 Parathyrin.intact [Mass/volume] in Serum or Plasma 2023-10-24 01:51:28 353 pg/mL F 18.0-80.0 Alkaline phosphatase [Enzymatic activity/volume] in Serum or Plasma 2023-10-23 16:48:18 70 U/L F 46.0-116.0 Phosphate [Mass/volume] in Serum or Plasma 2023-10-23 16:48:18 9.1 mg/dL F 2.4-5.1 Phosphate [Mass/volume] in Serum or Plasma 2023-10-23 16:48:18 9.1 mg/dL F 2.4-5.1 Alkaline phosphatase [Enzymatic activity/volume] in Serum or Plasma 2023-10-23 16:48:18 70 U/L F 46.0-116.0 Magnesium [Mass/volume] in Serum or Plasma 2023-10-23 16:48:17 1.1 mg/dL F 1.3-2.7 Magnesium [Mass/volume] in Serum or Plasma 2023-10-23 16:48:17 1.1 mg/dL F 1.3-2.7 CA CORRECTED 2023-09-26 18:03:47 8.6 mg/dL F CA CORRECTED 2023-09-26 18:03:47 8.6 mg/dL F CA*PO4 CORRCTD 2023-09-26 07:18:00 47.3 Calc F 21.0-53.0 CA/PHOS PRODUCT 2023-09-26 07:18:00 45.7 Calc F 21.0-53.0 CA/PHOS PRODUCT 2023-09-26 07:18:00 45.7 Calc F 21.0-53.0 CA*PO4 CORRCTD 2023-09-26 07:18:00 47.3 Calc F 21.0-53.0 Calcium [Mass/volume] in Serum or Plasma 2023-09-25 23:13:10 8.3 mg/dL F 8.7-10.4 Calcium [Mass/volume] in Serum or Plasma 2023-09-25 23:13:10 8.3 mg/dL F 8.7-10.4 Parathyrin.intact [Mass/volume] in Serum or Plasma 2023-09-25 14:18:41 263 pg/mL F 18.0-80.0 Parathyrin.intact [Mass/volume] in Serum or Plasma 2023-09-25 14:18:41 263 pg/mL F 18.0-80.0 Alkaline phosphatase [Enzymatic activity/volume] in Serum or Plasma 2023-09-25 13:43:37 56 U/L F 46.0-116.0 Alkaline phosphatase [Enzymatic activity/volume] in Serum or Plasma 2023-09-25 13:43:37 56 U/L F 46.0-116.0 Phosphate [Mass/volume] in Serum or Plasma 2023-09-25 13:43:37 5.5 mg/dL F 2.4-5.1 Magnesium [Mass/volume] in Serum or Plasma 2023-09-25 13:43:37 1.4 mg/dL F 1.3-2.7 Magnesium [Mass/volume] in Serum or Plasma 2023-09-25 13:43:37 1.4 mg/dL F 1.3-2.7 Phosphate [Mass/volume] in Serum or Plasma 2023-09-25 13:43:37 5.5 mg/dL F 2.4-5.1 CA CORRECTED 2023-08-27 07:14:45 7.9 mg/dL F CA*PO4 CORRCTD 2023-08-27 07:09:55 55.3 Calc F 21.0-53.0 CA/PHOS PRODUCT 2023-08-27 07:09:55 53.2 Calc F 21.0-53.0 Calcium [Mass/volume] in Serum or Plasma 2023-08-27 07:06:48 7.6 mg/dL F 8.7-10.4 Parathyrin.intact [Mass/volume] in Serum or Plasma 2023-08-26 20:27:17 333 pg/mL F 18.0-80.0 25-Hydroxyvitamin D3+25-Hydroxyvitamin D2 [Mass/volume] in Serum or Plasma 2023-08-26 20:27:11 57.6 ng/mL F Magnesium [Mass/volume] in Serum or Plasma 2023-08-26 18:51:36 1.2 mg/dL F 1.3-2.7 Phosphate [Mass/volume] in Serum or Plasma 2023-08-26 18:51:36 7 mg/dL F 2.4-5.1 Alkaline phosphatase [Enzymatic activity/volume] in Serum or Plasma 2023-08-26 18:51:36 94 U/L F 46.0-116.0 CA CORRECTED 2023-07-25 06:54:17 8.2 mg/dL F CA*PO4 CORRCTD 2023-07-25 06:48:06 74.6 Calc F 21.0-53.0 CA/PHOS PRODUCT 2023-07-25 06:48:06 71.9 Calc F 21.0-53.0 Calcium [Mass/volume] in Serum or Plasma 2023-07-25 06:41:05 7.9 mg/dL F 8.7-10.4 Parathyrin.intact [Mass/volume] in Serum or Plasma 2023-07-25 03:52:10 308 pg/mL F 18.0-80.0 Magnesium [Mass/volume] in Serum or Plasma 2023-07-24 17:39:41 1 mg/dL F 1.3-2.7 Phosphate [Mass/volume] in Serum or Plasma 2023-07-24 17:39:41 9.1 mg/dL F 2.4-5.1 Alkaline phosphatase [Enzymatic activity/volume] in Serum or Plasma 2023-07-24 17:39:41 60 U/L F 46.0-116.0 CA CORRECTED 2023-06-29 01:33:20 8.6 mg/dL F CA CORRECTED 2023-06-29 01:33:20 8.6 mg/dL F CA*PO4 CORRCTD 2023-06-29 01:31:07 51.6 Calc F 21.0-53.0 CA/PHOS PRODUCT 2023-06-29 01:31:07 48.6 Calc F 21.0-53.0 CA*PO4 CORRCTD 2023-06-29 01:31:07 51.6 Calc F 21.0-53.0 CA/PHOS PRODUCT 2023-06-29 01:31:07 48.6 Calc F 21.0-53.0 Calcium [Mass/volume] in Serum or Plasma 2023-06-29 01:29:17 8.1 mg/dL F 8.7-10.4 Calcium [Mass/volume] in Serum or Plasma 2023-06-29 01:29:17 8.1 mg/dL F 8.7-10.4 Parathyrin.intact [Mass/volume] in Serum or Plasma 2023-06-28 19:07:26 285 pg/mL F 18.0-80.0 Parathyrin.intact [Mass/volume] in Serum or Plasma 2023-06-28 19:07:26 285 pg/mL F 18.0-80.0 Magnesium [Mass/volume] in Serum or Plasma 2023-06-28 15:38:38 1.2 mg/dL F 1.3-2.7 Phosphate [Mass/volume] in Serum or Plasma 2023-06-28 15:38:38 6 mg/dL F 2.4-5.1 Alkaline phosphatase [Enzymatic activity/volume] in Serum or Plasma 2023-06-28 15:38:38 43 U/L F 46.0-116.0 Magnesium [Mass/volume] in Serum or Plasma 2023-06-28 15:38:38 1.2 mg/dL F 1.3-2.7 Alkaline phosphatase [Enzymatic activity/volume] in Serum or Plasma 2023-06-28 15:38:38 43 U/L F 46.0-116.0 Phosphate [Mass/volume] in Serum or Plasma 2023-06-28 15:38:38 6 mg/dL F 2.4-5.1 CA CORRECTED 2023-05-24 08:05:09 9 mg/dL F CA CORRECTED 2023-05-24 08:05:09 9 mg/dL F CA*PO4 CORRCTD 2023-05-24 07:49:48 43.2 Calc F 21.0-53.0 CA/PHOS PRODUCT 2023-05-24 07:49:48 42.2 Calc F 21.0-53.0 CA/PHOS PRODUCT 2023-05-24 07:49:48 42.2 Calc F 21.0-53.0 CA*PO4 CORRCTD 2023-05-24 07:49:48 43.2 Calc F 21.0-53.0 Calcium [Mass/volume] in Serum or Plasma 2023-05-24 07:48:36 8.8 mg/dL F 8.7-10.4 Calcium [Mass/volume] in Serum or Plasma 2023-05-24 07:48:36 8.8 mg/dL F 8.7-10.4 Magnesium [Mass/volume] in Serum or Plasma 2023-05-24 01:21:33 1.2 mg/dL F 1.3-2.7 Phosphate [Mass/volume] in Serum or Plasma 2023-05-24 01:21:33 4.8 mg/dL F 2.4-5.1 Alkaline phosphatase [Enzymatic activity/volume] in Serum or Plasma 2023-05-24 01:21:33 83 U/L F 46.0-116.0 Alkaline phosphatase [Enzymatic activity/volume] in Serum or Plasma 2023-05-24 01:21:33 83 U/L F 46.0-116.0 Phosphate [Mass/volume] in Serum or Plasma 2023-05-24 01:21:33 4.8 mg/dL F 2.4-5.1 Magnesium [Mass/volume] in Serum or Plasma 2023-05-24 01:21:33 1.2 mg/dL F 1.3-2.7 25-Hydroxyvitamin D3+25-Hydroxyvitamin D2 [Mass/volume] in Serum or Plasma 2023-05-24 00:33:43 56 ng/mL F 25-Hydroxyvitamin D3+25-Hydroxyvitamin D2 [Mass/volume] in Serum or Plasma 2023-05-24 00:33:43 56 ng/mL F Parathyrin.intact [Mass/volume] in Serum or Plasma 2023-05-23 03:10:28 197 pg/mL F 18.0-80.0 Parathyrin.intact [Mass/volume] in Serum or Plasma 2023-05-23 03:10:28 197 pg/mL F 18.0-80.0 Parathyrin.intact [Mass/volume] in Serum or Plasma 2023-04-26 05:21:06 130 pg/mL F 18.0-80.0 Parathyrin.intact [Mass/volume] in Serum or Plasma 2023-04-26 05:21:06 130 pg/mL F 18.0-80.0 CA CORRECTED 2023-04-25 09:14:01 9.7 mg/dL F CA CORRECTED 2023-04-25 09:14:01 9.7 mg/dL F CA*PO4 CORRCTD 2023-04-25 08:37:33 44.6 Calc F 21.0-53.0 CA/PHOS PRODUCT 2023-04-25 08:37:33 42.3 Calc F 21.0-53.0 CA/PHOS PRODUCT 2023-04-25 08:37:33 42.3 Calc F 21.0-53.0 CA*PO4 CORRCTD 2023-04-25 08:37:33 44.6 Calc F 21.0-53.0 Calcium [Mass/volume] in Serum or Plasma 2023-04-25 08:14:24 9.2 mg/dL F 8.7-10.4 Calcium [Mass/volume] in Serum or Plasma 2023-04-25 08:14:24 9.2 mg/dL F 8.7-10.4 Magnesium [Mass/volume] in Serum or Plasma 2023-04-24 18:07:01 1.4 mg/dL F 1.3-2.7 Magnesium [Mass/volume] in Serum or Plasma 2023-04-24 18:07:01 1.4 mg/dL F 1.3-2.7 Phosphate [Mass/volume] in Serum or Plasma 2023-04-24 18:06:58 4.6 mg/dL F 2.4-5.1 Alkaline phosphatase [Enzymatic activity/volume] in Serum or Plasma 2023-04-24 18:06:58 67 U/L F 46.0-116.0 Alkaline phosphatase [Enzymatic activity/volume] in Serum or Plasma 2023-04-24 18:06:58 67 U/L F 46.0-116.0 Phosphate [Mass/volume] in Serum or Plasma 2023-04-24 18:06:58 4.6 mg/dL F 2.4-5.1 Parathyrin.intact [Mass/volume] in Serum or Plasma 2023-04-04 07:58:27 211 pg/mL F 18.0-80.0 CA CORRECTED 2023-04-03 22:35:26 9.5 mg/dL F CA*PO4 CORRCTD 2023-04-03 22:31:27 39 Calc F 21.0-53.0 CA/PHOS PRODUCT 2023-04-03 22:31:27 36.9 Calc F 21.0-53.0 Calcium [Mass/volume] in Serum or Plasma 2023-04-03 22:25:13 9 mg/dL F 8.7-10.4 Magnesium [Mass/volume] in Serum or Plasma 2023-04-03 16:22:19 1.7 mg/dL F 1.3-2.7 Alkaline phosphatase [Enzymatic activity/volume] in Serum or Plasma 2023-04-03 16:22:19 78 U/L F 46.0-116.0 Phosphate [Mass/volume] in Serum or Plasma 2023-04-03 16:22:19 4.1 mg/dL F 2.4-5.1 CA CORRECTED 2023-02-27 09:50:54 8.8 mg/dL F CA CORRECTED 2023-02-27 09:50:54 8.8 mg/dL F CA/PHOS PRODUCT 2023-02-27 08:23:53 57.2 Calc F 21.0-53.0 CA*PO4 CORRCTD 2023-02-27 08:23:53 57.2 Calc F 21.0-53.0 CA*PO4 CORRCTD 2023-02-27 08:23:53 57.2 Calc F 21.0-53.0 CA/PHOS PRODUCT 2023-02-27 08:23:53 57.2 Calc F 21.0-53.0 Calcium [Mass/volume] in Serum or Plasma 2023-02-27 08:20:25 8.8 mg/dL F 8.7-10.4 Calcium [Mass/volume] in Serum or Plasma 2023-02-27 08:20:25 8.8 mg/dL F 8.7-10.4 Parathyrin.intact [Mass/volume] in Serum or Plasma 2023-02-26 22:13:43 272 pg/mL F 18.0-80.0 Parathyrin.intact [Mass/volume] in Serum or Plasma 2023-02-26 22:13:43 272 pg/mL F 18.0-80.0 Magnesium [Mass/volume] in Serum or Plasma 2023-02-26 19:29:35 1.4 mg/dL F 1.3-2.7 Phosphate [Mass/volume] in Serum or Plasma 2023-02-26 19:29:35 6.5 mg/dL F 2.4-5.1 Alkaline phosphatase [Enzymatic activity/volume] in Serum or Plasma 2023-02-26 19:29:35 39 U/L F 46.0-116.0 Alkaline phosphatase [Enzymatic activity/volume] in Serum or Plasma 2023-02-26 19:29:35 39 U/L F 46.0-116.0 Phosphate [Mass/volume] in Serum or Plasma 2023-02-26 19:29:35 6.5 mg/dL F 2.4-5.1 Magnesium [Mass/volume] in Serum or Plasma 2023-02-26 19:29:35 1.4 mg/dL F 1.3-2.7 25-Hydroxyvitamin D3+25-Hydroxyvitamin D2 [Mass/volume] in Serum or Plasma 2023-02-26 08:12:09 58.1 ng/mL F 25-Hydroxyvitamin D3+25-Hydroxyvitamin D2 [Mass/volume] in Serum or Plasma 2023-02-26 08:12:09 58.1 ng/mL F Parathyrin.intact [Mass/volume] in Serum or Plasma 2023-01-22 07:16:38 288 pg/mL F 18.0-80.0 Parathyrin.intact [Mass/volume] in Serum or Plasma 2023-01-22 07:16:38 288 pg/mL F 18.0-80.0 CA CORRECTED 2023-01-22 04:15:32 7.9 mg/dL F CA CORRECTED 2023-01-22 04:15:32 7.9 mg/dL F CA/PHOS PRODUCT 2023-01-22 04:07:41 53 Calc F 21.0-53.0 CA*PO4 CORRCTD 2023-01-22 04:07:41 53.7 Calc F 21.0-53.0 CA/PHOS PRODUCT 2023-01-22 04:07:41 53 Calc F 21.0-53.0 CA*PO4 CORRCTD 2023-01-22 04:07:41 53.7 Calc F 21.0-53.0 Calcium [Mass/volume] in Serum or Plasma 2023-01-22 04:01:20 7.8 mg/dL F 8.7-10.4 Calcium [Mass/volume] in Serum or Plasma 2023-01-22 04:01:20 7.8 mg/dL F 8.7-10.4 Magnesium [Mass/volume] in Serum or Plasma 2023-01-22 03:53:35 1 mg/dL F 1.3-2.7 Phosphate [Mass/volume] in Serum or Plasma 2023-01-22 03:53:35 6.8 mg/dL F 2.4-5.1 Alkaline phosphatase [Enzymatic activity/volume] in Serum or Plasma 2023-01-22 03:53:35 49 U/L F 46.0-116.0 Phosphate [Mass/volume] in Serum or Plasma 2023-01-22 03:53:35 6.8 mg/dL F 2.4-5.1 Alkaline phosphatase [Enzymatic activity/volume] in Serum or Plasma 2023-01-22 03:53:35 49 U/L F 46.0-116.0 Magnesium [Mass/volume] in Serum or Plasma 2023-01-22 03:53:35 1 mg/dL F 1.3-2.7 CA CORRECTED 2022-12-28 06:28:56 8.5 mg/dL F CA/PHOS PRODUCT 2022-12-28 06:25:36 63.1 Calc F 21.0-53.0 CA*PO4 CORRCTD 2022-12-28 06:25:36 64.6 Calc F 21.0-53.0 Calcium [Mass/volume] in Serum or Plasma 2022-12-28 06:21:30 8.3 mg/dL F 8.7-10.4 Parathyrin.intact [Mass/volume] in Serum or Plasma 2022-12-28 02:33:08 288 pg/mL F 18.0-80.0 Magnesium [Mass/volume] in Serum or Plasma 2022-12-27 16:17:40 1.5 mg/dL F 1.3-2.7 Phosphate [Mass/volume] in Serum or Plasma 2022-12-27 16:17:40 7.6 mg/dL F 2.4-5.1 Alkaline phosphatase [Enzymatic activity/volume] in Serum or Plasma 2022-12-27 16:17:40 75 U/L F 46.0-116.0 Parathyrin.intact [Mass/volume] in Serum or Plasma 2022-11-24 06:03:46 383 pg/mL F 18.0-80.0 25-Hydroxyvitamin D3+25-Hydroxyvitamin D2 [Mass/volume] in Serum or Plasma 2022-11-24 06:03:36 45.4 ng/mL F CA CORRECTED 2022-11-24 05:06:37 8.4 mg/dL F CA*PO4 CORRCTD 2022-11-24 04:53:11 49.6 Calc F 21.0-53.0 CA/PHOS PRODUCT 2022-11-24 04:53:11 48.4 Calc F 21.0-53.0 Calcium [Mass/volume] in Serum or Plasma 2022-11-24 04:47:42 8.2 mg/dL F 8.7-10.4 Phosphate [Mass/volume] in Serum or Plasma 2022-11-24 03:59:27 5.9 mg/dL F 2.4-5.1 Magnesium [Mass/volume] in Serum or Plasma 2022-11-24 03:59:27 1.3 mg/dL F 1.3-2.7 Alkaline phosphatase [Enzymatic activity/volume] in Serum or Plasma 2022-11-24 03:59:27 33 U/L F 46.0-116.0 Parathyrin.intact [Mass/volume] in Serum or Plasma 2022-10-30 18:39:32 218 pg/mL F 18.0-80.0 Parathyrin.intact [Mass/volume] in Serum or Plasma 2022-10-30 18:39:32 218 pg/mL F 18.0-80.0 CA CORRECTED 2022-10-30 08:27:48 8.2 mg/dL F CA CORRECTED 2022-10-30 08:27:48 8.2 mg/dL F CA/PHOS PRODUCT 2022-10-30 08:03:41 52.8 Calc F 21.0-53.0 CA*PO4 CORRCTD 2022-10-30 08:03:41 54.1 Calc F 21.0-53.0 CA*PO4 CORRCTD 2022-10-30 08:03:41 54.1 Calc F 21.0-53.0 CA/PHOS PRODUCT 2022-10-30 08:03:41 52.8 Calc F 21.0-53.0 Calcium [Mass/volume] in Serum or Plasma 2022-10-30 07:43:13 8 mg/dL F 8.7-10.4 Calcium [Mass/volume] in Serum or Plasma 2022-10-30 07:43:13 8 mg/dL F 8.7-10.4 Alkaline phosphatase [Enzymatic activity/volume] in Serum or Plasma 2022-10-30 06:49:36 34 U/L F 46.0-116.0 Phosphate [Mass/volume] in Serum or Plasma 2022-10-30 06:49:36 6.6 mg/dL F 2.4-5.1 Magnesium [Mass/volume] in Serum or Plasma 2022-10-30 06:49:36 1.2 mg/dL F 1.3-2.7 Magnesium [Mass/volume] in Serum or Plasma 2022-10-30 06:49:36 1.2 mg/dL F 1.3-2.7 Phosphate [Mass/volume] in Serum or Plasma 2022-10-30 06:49:36 6.6 mg/dL F 2.4-5.1 Alkaline phosphatase [Enzymatic activity/volume] in Serum or Plasma 2022-10-30 06:49:36 34 U/L F 46.0-116.0 CA CORRECTED 2022-09-28 02:40:15 8.9 mg/dL F CA*PO4 CORRCTD 2022-09-28 02:35:14 52.5 Calc F 21.0-53.0 CA/PHOS PRODUCT 2022-09-28 02:35:14 51.3 Calc F 21.0-53.0 Calcium [Mass/volume] in Serum or Plasma 2022-09-28 02:30:38 8.7 mg/dL F 8.7-10.4 Parathyrin.intact [Mass/volume] in Serum or Plasma 2022-09-27 20:46:30 232 pg/mL F 18.0-80.0 Magnesium [Mass/volume] in Serum or Plasma 2022-09-27 19:21:36 1.5 mg/dL F 1.3-2.7 Phosphate [Mass/volume] in Serum or Plasma 2022-09-27 19:21:36 5.9 mg/dL F 2.4-5.1 Alkaline phosphatase [Enzymatic activity/volume] in Serum or Plasma 2022-09-27 19:21:36 55 U/L F 46.0-116.0 Parathyrin.intact [Mass/volume] in Serum or Plasma 2022-08-28 15:22:16 352 pg/mL F 18.0-80.0 Parathyrin.intact [Mass/volume] in Serum or Plasma 2022-08-28 15:22:16 352 pg/mL F 18.0-80.0 CA CORRECTED 2022-08-28 05:10:01 7.8 mg/dL F CA CORRECTED 2022-08-28 05:10:01 7.8 mg/dL F CA*PO4 CORRCTD 2022-08-28 05:07:03 64 Calc F 21.0-53.0 CA/PHOS PRODUCT 2022-08-28 05:07:03 64 Calc F 21.0-53.0 CA*PO4 CORRCTD 2022-08-28 05:07:03 64 Calc F 21.0-53.0 CA/PHOS PRODUCT 2022-08-28 05:07:03 64 Calc F 21.0-53.0 Calcium [Mass/volume] in Serum or Plasma 2022-08-28 05:05:07 7.8 mg/dL F 8.7-10.4 Calcium [Mass/volume] in Serum or Plasma 2022-08-28 05:05:07 7.8 mg/dL F 8.7-10.4 Phosphate [Mass/volume] in Serum or Plasma 2022-08-28 04:35:20 8.2 mg/dL F 2.4-5.1 Magnesium [Mass/volume] in Serum or Plasma 2022-08-28 04:35:20 0.9 mg/dL F 1.3-2.7 Alkaline phosphatase [Enzymatic activity/volume] in Serum or Plasma 2022-08-28 04:35:20 47 U/L F 46.0-116.0 Alkaline phosphatase [Enzymatic activity/volume] in Serum or Plasma 2022-08-28 04:35:20 47 U/L F 46.0-116.0 Phosphate [Mass/volume] in Serum or Plasma 2022-08-28 04:35:20 8.2 mg/dL F 2.4-5.1 Magnesium [Mass/volume] in Serum or Plasma 2022-08-28 04:35:20 0.9 mg/dL F 1.3-2.7 25-Hydroxyvitamin D3+25-Hydroxyvitamin D2 [Mass/volume] in Serum or Plasma 2022-08-28 02:55:26 49.9 ng/mL F 25-Hydroxyvitamin D3+25-Hydroxyvitamin D2 [Mass/volume] in Serum or Plasma 2022-08-28 02:55:26 49.9 ng/mL F CA CORRECTED 2022-07-25 04:43:41 8.3 mg/dL F CA*PO4 CORRCTD 2022-07-25 04:39:31 58.1 Calc F 21.0-53.0 CA/PHOS PRODUCT 2022-07-25 04:39:31 56 Calc F 21.0-53.0 Calcium [Mass/volume] in Serum or Plasma 2022-07-25 04:37:57 8 mg/dL F 8.7-10.4 Parathyrin.intact [Mass/volume] in Serum or Plasma 2022-07-24 22:57:17 355 pg/mL F 18.0-80.0 Alkaline phosphatase [Enzymatic activity/volume] in Serum or Plasma 2022-07-24 20:39:24 98 U/L F 46.0-116.0 Phosphate [Mass/volume] in Serum or Plasma 2022-07-24 20:39:22 7 mg/dL F 2.4-5.1 Magnesium [Mass/volume] in Serum or Plasma 2022-07-24 20:39:22 1.3 mg/dL F 1.3-2.7 CA CORRECTED 2022-06-23 10:13:19 9 mg/dL F CA*PO4 CORRCTD 2022-06-23 05:00:45 56.7 Calc F 21.0-53.0 CA/PHOS PRODUCT 2022-06-23 04:56:00 55.4 Calc F 21.0-53.0 Calcium [Mass/volume] in Serum or Plasma 2022-06-23 04:52:50 8.8 mg/dL F 8.7-10.4 Parathyrin.intact [Mass/volume] in Serum or Plasma 2022-06-22 22:14:18 191 pg/mL F 18.0-80.0 Alkaline phosphatase [Enzymatic activity/volume] in Serum or Plasma 2022-06-22 17:30:14 103 U/L F 46.0-116.0 Magnesium [Mass/volume] in Serum or Plasma 2022-06-22 17:30:12 1.7 mg/dL F 1.3-2.7 Phosphate [Mass/volume] in Serum or Plasma 2022-06-22 17:30:12 6.3 mg/dL F 2.4-5.1 CA CORRECTED 2022-05-26 04:51:48 8.8 mg/dL F CA CORRECTED 2022-05-26 04:51:48 8.8 mg/dL F CA*PO4 CORRCTD 2022-05-26 04:40:40 61.6 Calc F 21.0-53.0 CA/PHOS PRODUCT 2022-05-26 04:40:40 60.2 Calc F 21.0-53.0 CA/PHOS PRODUCT 2022-05-26 04:40:40 60.2 Calc F 21.0-53.0 CA*PO4 CORRCTD 2022-05-26 04:40:40 61.6 Calc F 21.0-53.0 Calcium [Mass/volume] in Serum or Plasma 2022-05-26 04:29:42 8.6 mg/dL F 8.7-10.4 Calcium [Mass/volume] in Serum or Plasma 2022-05-26 04:29:42 8.6 mg/dL F 8.7-10.4 25-Hydroxyvitamin D3+25-Hydroxyvitamin D2 [Mass/volume] in Serum or Plasma 2022-05-26 02:58:16 39 ng/mL F 30.0-100.0 25-Hydroxyvitamin D3+25-Hydroxyvitamin D2 [Mass/volume] in Serum or Plasma 2022-05-26 02:58:16 39 ng/mL F 30.0-100.0 Parathyrin.intact [Mass/volume] in Serum or Plasma 2022-05-26 01:21:17 190 pg/mL F 18.0-80.0 Parathyrin.intact [Mass/volume] in Serum or Plasma 2022-05-26 01:21:17 190 pg/mL F 18.0-80.0 Phosphate [Mass/volume] in Serum or Plasma 2022-05-25 23:33:20 7 mg/dL F 2.4-5.1 Magnesium [Mass/volume] in Serum or Plasma 2022-05-25 23:33:20 1.3 mg/dL F 1.3-2.7 Alkaline phosphatase [Enzymatic activity/volume] in Serum or Plasma 2022-05-25 23:33:20 113 U/L F 46.0-116.0 Alkaline phosphatase [Enzymatic activity/volume] in Serum or Plasma 2022-05-25 23:33:20 113 U/L F 46.0-116.0 Phosphate [Mass/volume] in Serum or Plasma 2022-05-25 23:33:20 7 mg/dL F 2.4-5.1 Magnesium [Mass/volume] in Serum or Plasma 2022-05-25 23:33:20 1.3 mg/dL F 1.3-2.7 CA CORRECTED 2022-04-25 09:22:59 9.1 mg/dL F CA/PHOS PRODUCT 2022-04-25 03:40:15 61.9 Calc F 21.0-53.0 CA*PO4 CORRCTD 2022-04-25 03:40:15 61.9 Calc F 21.0-53.0 Calcium [Mass/volume] in Serum or Plasma 2022-04-25 03:22:57 9.1 mg/dL F 8.7-10.4 Parathyrin.intact [Mass/volume] in Serum or Plasma 2022-04-25 00:46:20 164 pg/mL F 18.0-80.0 Phosphate [Mass/volume] in Serum or Plasma 2022-04-24 21:50:18 6.8 mg/dL F 2.4-5.1 Magnesium [Mass/volume] in Serum or Plasma 2022-04-24 21:50:18 1.4 mg/dL F 1.3-2.7 Alkaline phosphatase [Enzymatic activity/volume] in Serum or Plasma 2022-04-24 21:50:18 116 U/L F 46.0-116.0 CA CORRECTED 2022-04-03 09:18:04 8.6 mg/dL F CA*PO4 CORRCTD 2022-04-03 04:22:39 49 Calc F 21.0-53.0 CA/PHOS PRODUCT 2022-04-03 04:22:39 47.9 Calc F 21.0-53.0 Parathyrin.intact [Mass/volume] in Serum or Plasma 2022-04-02 23:38:17 272 pg/mL F 18.0-80.0 Calcium [Mass/volume] in Serum or Plasma 2022-04-02 22:50:47 8.4 mg/dL F 8.7-10.4 Magnesium [Mass/volume] in Serum or Plasma 2022-04-02 16:28:53 1.3 mg/dL F 1.3-2.7 Phosphate [Mass/volume] in Serum or Plasma 2022-04-02 16:28:53 5.7 mg/dL F 2.4-5.1 Alkaline phosphatase [Enzymatic activity/volume] in Serum or Plasma 2022-04-02 16:28:53 119 U/L F 46.0-116.0 CA CORRECTED 2022-02-21 08:42:24 8.4 mg/dL F CA CORRECTED 2022-02-21 08:42:24 8.4 mg/dL F CA/PHOS PRODUCT 2022-02-21 06:51:09 44.5 Calc F 21.0-53.0 CA*PO4 CORRCTD 2022-02-21 06:51:09 44.5 Calc F 21.0-53.0 CA/PHOS PRODUCT 2022-02-21 06:51:09 44.5 Calc F 21.0-53.0 CA*PO4 CORRCTD 2022-02-21 06:51:09 44.5 Calc F 21.0-53.0 Calcium [Mass/volume] in Serum or Plasma 2022-02-21 06:26:31 8.4 mg/dL F 8.7-10.4 Calcium [Mass/volume] in Serum or Plasma 2022-02-21 06:26:31 8.4 mg/dL F 8.7-10.4 Parathyrin.intact [Mass/volume] in Serum or Plasma 2022-02-21 02:43:55 257 pg/mL F 18.0-80.0 Parathyrin.intact [Mass/volume] in Serum or Plasma 2022-02-21 02:43:55 257 pg/mL F 18.0-80.0 Magnesium [Mass/volume] in Serum or Plasma 2022-02-21 01:19:54 1.3 mg/dL F 1.3-2.7 Phosphate [Mass/volume] in Serum or Plasma 2022-02-21 01:19:54 5.3 mg/dL F 2.4-5.1 Alkaline phosphatase [Enzymatic activity/volume] in Serum or Plasma 2022-02-21 01:19:54 125 U/L F 46.0-116.0 Alkaline phosphatase [Enzymatic activity/volume] in Serum or Plasma 2022-02-21 01:19:54 125 U/L F 46.0-116.0 Phosphate [Mass/volume] in Serum or Plasma 2022-02-21 01:19:54 5.3 mg/dL F 2.4-5.1 Magnesium [Mass/volume] in Serum or Plasma 2022-02-21 01:19:54 1.3 mg/dL F 1.3-2.7 25-Hydroxyvitamin D3+25-Hydroxyvitamin D2 [Mass/volume] in Serum or Plasma 2022-02-21 00:07:54 37.2 ng/mL F 30.0-100.0 25-Hydroxyvitamin D3+25-Hydroxyvitamin D2 [Mass/volume] in Serum or Plasma 2022-02-21 00:07:54 37.2 ng/mL F 30.0-100.0 Nutrition Description Draw Date Result/Unit Status Ref Range Result Comments Potassium [Moles/volume] in Serum or Plasma 2024-03-07 06:46:32 3.2 mEq/L F 3.5-5.5 Potassium [Moles/volume] in Serum or Plasma 2024-03-07 06:46:32 3.2 mEq/L F 3.5-5.5 CHOL/HDL RATIO 2024-03-06 23:36:12 5 Calc F 3.3-5.0 VLDL-CHOL(CALC) 2024-03-06 23:36:12 73 mg/dL F 0.0-29.0 A/G RATIO 2024-03-06 23:36:12 1.6 Calc F 1.0-2.5 LDL-CHOLESTEROL 2024-03-06 23:36:12 66 mg/dL F 0.0-99.0 GLOBULIN 2024-03-06 23:36:12 2.1 g/dL F 0.9-5.0 CHOL/HDL RATIO 2024-03-06 23:36:12 5 Calc F 3.3-5.0 A/G RATIO 2024-03-06 23:36:12 1.6 Calc F 1.0-2.5 GLOBULIN 2024-03-06 23:36:12 2.1 g/dL F 0.9-5.0 LDL-CHOLESTEROL 2024-03-06 23:36:12 66 mg/dL F 0.0-99.0 VLDL-CHOL(CALC) 2024-03-06 23:36:12 73 mg/dL F 0.0-29.0 Cholesterol in HDL [Mass/volume] in Serum or Plasma 2024-03-06 23:33:23 35 mg/dL F 40.0-60.0 Protein [Mass/volume] in Serum or Plasma 2024-03-06 23:33:23 5.5 g/dL F 5.7-8.2 Cholesterol [Mass/volume] in Serum or Plasma 2024-03-06 23:33:23 174 mg/dL F 0.0-199.0 Bicarbonate [Moles/volume] in Serum or Plasma 2024-03-06 23:33:23 30 mEq/L F 20.0-31.0 Lactate dehydrogenase [Enzymatic activity/volume] in Serum or Plasma 2024-03-06 23:33:23 237 U/L F 120.0-246.0 Albumin [Mass/volume] in Serum or Plasma by Bromocresol green (BCG) dye binding method 2024-03-06 23:33:23 3.4 g/dL F 3.4-4.8 Protein [Mass/volume] in Serum or Plasma 2024-03-06 23:33:23 365 mg/dL F 0.0-149.0 Glucose [Mass/volume] in Serum or Plasma 2024-03-06 23:33:23 168 mg/dL F 70.0-99.0 Cholesterol [Mass/volume] in Serum or Plasma 2024-03-06 23:33:23 174 mg/dL F 0.0-199.0 Protein [Mass/volume] in Serum or Plasma 2024-03-06 23:33:23 365 mg/dL F 0.0-149.0 Cholesterol in HDL [Mass/volume] in Serum or Plasma 2024-03-06 23:33:23 35 mg/dL F 40.0-60.0 Albumin [Mass/volume] in Serum or Plasma by Bromocresol green (BCG) dye binding method 2024-03-06 23:33:23 3.4 g/dL F 3.4-4.8 Bicarbonate [Moles/volume] in Serum or Plasma 2024-03-06 23:33:23 30 mEq/L F 20.0-31.0 Glucose [Mass/volume] in Serum or Plasma 2024-03-06 23:33:23 168 mg/dL F 70.0-99.0 Lactate dehydrogenase [Enzymatic activity/volume] in Serum or Plasma 2024-03-06 23:33:23 237 U/L F 120.0-246.0 Protein [Mass/volume] in Serum or Plasma 2024-03-06 23:33:23 5.5 g/dL F 5.7-8.2 Potassium [Moles/volume] in Serum or Plasma 2024-01-29 08:04:30 3.6 mEq/L F 3.5-5.5 GLOBULIN 2024-01-28 19:22:27 1.9 g/dL F 0.9-5.0 A/G RATIO 2024-01-28 19:22:27 1.9 Calc F 1.0-2.5 Albumin [Mass/volume] in Serum or Plasma by Bromocresol green (BCG) dye binding method 2024-01-28 19:12:24 3.7 g/dL F 3.4-4.8 Protein [Mass/volume] in Serum or Plasma 2024-01-28 19:12:24 5.6 g/dL F 5.7-8.2 Bicarbonate [Moles/volume] in Serum or Plasma 2024-01-28 19:12:24 28 mEq/L F 20.0-31.0 Glucose [Mass/volume] in Serum or Plasma 2024-01-28 19:12:24 111 mg/dL F 70.0-99.0 Lactate dehydrogenase [Enzymatic activity/volume] in Serum or Plasma 2024-01-28 19:12:24 262 U/L F 120.0-246.0 Potassium [Moles/volume] in Serum or Plasma 2024-01-01 07:50:11 3.9 mEq/L F 3.5-5.5 Potassium [Moles/volume] in Serum or Plasma 2024-01-01 07:50:11 3.9 mEq/L F 3.5-5.5 A/G RATIO 2023-12-31 23:36:38 1.5 Calc F 1.0-2.5 GLOBULIN 2023-12-31 23:36:38 2.2 g/dL F 0.9-5.0 GLOBULIN 2023-12-31 23:36:38 2.2 g/dL F 0.9-5.0 A/G RATIO 2023-12-31 23:36:38 1.5 Calc F 1.0-2.5 Bicarbonate [Moles/volume] in Serum or Plasma 2023-12-31 23:35:20 27 mEq/L F 20.0-31.0 Glucose [Mass/volume] in Serum or Plasma 2023-12-31 23:35:20 139 mg/dL F 70.0-99.0 Albumin [Mass/volume] in Serum or Plasma by Bromocresol green (BCG) dye binding method 2023-12-31 23:35:20 3.4 g/dL F 3.4-4.8 Lactate dehydrogenase [Enzymatic activity/volume] in Serum or Plasma 2023-12-31 23:35:20 267 U/L F 120.0-246.0 Protein [Mass/volume] in Serum or Plasma 2023-12-31 23:35:20 5.6 g/dL F 5.7-8.2 Albumin [Mass/volume] in Serum or Plasma by Bromocresol green (BCG) dye binding method 2023-12-31 23:35:20 3.4 g/dL F 3.4-4.8 Protein [Mass/volume] in Serum or Plasma 2023-12-31 23:35:20 5.6 g/dL F 5.7-8.2 Bicarbonate [Moles/volume] in Serum or Plasma 2023-12-31 23:35:20 27 mEq/L F 20.0-31.0 Glucose [Mass/volume] in Serum or Plasma 2023-12-31 23:35:20 139 mg/dL F 70.0-99.0 Lactate dehydrogenase [Enzymatic activity/volume] in Serum or Plasma 2023-12-31 23:35:20 267 U/L F 120.0-246.0 Potassium [Moles/volume] in Serum or Plasma 2023-11-20 04:55:01 3.9 mEq/L F 3.5-5.5 GLOBULIN 2023-11-20 00:49:18 2.1 g/dL F 0.9-5.0 A/G RATIO 2023-11-20 00:49:18 1.7 Calc F 1.0-2.5 Albumin [Mass/volume] in Serum or Plasma by Bromocresol green (BCG) dye binding method 2023-11-20 00:49:13 3.6 g/dL F 3.4-4.8 Protein [Mass/volume] in Serum or Plasma 2023-11-20 00:49:13 5.7 g/dL F 5.7-8.2 Bicarbonate [Moles/volume] in Serum or Plasma 2023-11-20 00:49:13 25 mEq/L F 20.0-31.0 Glucose [Mass/volume] in Serum or Plasma 2023-11-20 00:49:13 119 mg/dL F 70.0-99.0 Lactate dehydrogenase [Enzymatic activity/volume] in Serum or Plasma 2023-11-20 00:49:13 289 U/L F 120.0-246.0 Potassium [Moles/volume] in Serum or Plasma 2023-10-24 05:37:39 3.4 mEq/L F 3.5-5.5 Potassium [Moles/volume] in Serum or Plasma 2023-10-24 05:37:39 3.4 mEq/L F 3.5-5.5 A/G RATIO 2023-10-23 16:48:45 1.9 Calc F 1.0-2.5 GLOBULIN 2023-10-23 16:48:45 1.9 g/dL F 0.9-5.0 GLOBULIN 2023-10-23 16:48:45 1.9 g/dL F 0.9-5.0 A/G RATIO 2023-10-23 16:48:45 1.9 Calc F 1.0-2.5 Bicarbonate [Moles/volume] in Serum or Plasma 2023-10-23 16:48:18 26 mEq/L F 20.0-31.0 Glucose [Mass/volume] in Serum or Plasma 2023-10-23 16:48:18 156 mg/dL F 70.0-99.0 Protein [Mass/volume] in Serum or Plasma 2023-10-23 16:48:18 5.5 g/dL F 5.7-8.2 Protein [Mass/volume] in Serum or Plasma 2023-10-23 16:48:18 5.5 g/dL F 5.7-8.2 Bicarbonate [Moles/volume] in Serum or Plasma 2023-10-23 16:48:18 26 mEq/L F 20.0-31.0 Glucose [Mass/volume] in Serum or Plasma 2023-10-23 16:48:18 156 mg/dL F 70.0-99.0 Lactate dehydrogenase [Enzymatic activity/volume] in Serum or Plasma 2023-10-23 16:48:17 295 U/L F 120.0-246.0 Albumin [Mass/volume] in Serum or Plasma by Bromocresol green (BCG) dye binding method 2023-10-23 16:48:17 3.6 g/dL F 3.4-4.8 Albumin [Mass/volume] in Serum or Plasma by Bromocresol green (BCG) dye binding method 2023-10-23 16:48:17 3.6 g/dL F 3.4-4.8 Lactate dehydrogenase [Enzymatic activity/volume] in Serum or Plasma 2023-10-23 16:48:17 295 U/L F 120.0-246.0 GLOBULIN 2023-09-26 07:18:00 2 g/dL F 0.9-5.0 A/G RATIO 2023-09-26 07:18:00 1.8 Calc F 1.0-2.5 GLOBULIN 2023-09-26 07:18:00 2 g/dL F 0.9-5.0 A/G RATIO 2023-09-26 07:18:00 1.8 Calc F 1.0-2.5 Potassium [Moles/volume] in Serum or Plasma 2023-09-25 23:13:10 3.4 mEq/L F 3.5-5.5 Potassium [Moles/volume] in Serum or Plasma 2023-09-25 23:13:10 3.4 mEq/L F 3.5-5.5 Protein [Mass/volume] in Serum or Plasma 2023-09-25 13:43:37 5.6 g/dL F 5.7-8.2 Bicarbonate [Moles/volume] in Serum or Plasma 2023-09-25 13:43:37 28 mEq/L F 20.0-31.0 Glucose [Mass/volume] in Serum or Plasma 2023-09-25 13:43:37 129 mg/dL F 70.0-99.0 Lactate dehydrogenase [Enzymatic activity/volume] in Serum or Plasma 2023-09-25 13:43:37 297 U/L F 120.0-246.0 Bicarbonate [Moles/volume] in Serum or Plasma 2023-09-25 13:43:37 28 mEq/L F 20.0-31.0 Albumin [Mass/volume] in Serum or Plasma by Bromocresol green (BCG) dye binding method 2023-09-25 13:43:37 3.6 g/dL F 3.4-4.8 Protein [Mass/volume] in Serum or Plasma 2023-09-25 13:43:37 5.6 g/dL F 5.7-8.2 Glucose [Mass/volume] in Serum or Plasma 2023-09-25 13:43:37 129 mg/dL F 70.0-99.0 Lactate dehydrogenase [Enzymatic activity/volume] in Serum or Plasma 2023-09-25 13:43:37 297 U/L F 120.0-246.0 Albumin [Mass/volume] in Serum or Plasma by Bromocresol green (BCG) dye binding method 2023-09-25 13:43:37 3.6 g/dL F 3.4-4.8 Potassium [Moles/volume] in Serum or Plasma 2023-08-27 07:06:48 3.7 mEq/L F 3.5-5.5 GLOBULIN 2023-08-26 18:51:54 2 g/dL F 0.9-5.0 A/G RATIO 2023-08-26 18:51:54 1.8 Calc F 1.0-2.5 CHOL/HDL RATIO 2023-08-26 18:51:54 3.1 Calc F 3.3-5.0 VLDL-CHOL(CALC) 2023-08-26 18:51:54 37 mg/dL F 0.0-29.0 LDL-CHOLESTEROL 2023-08-26 18:51:54 48 mg/dL F 0.0-99.0 Albumin [Mass/volume] in Serum or Plasma by Bromocresol green (BCG) dye binding method 2023-08-26 18:51:36 3.6 g/dL F 3.4-4.8 Protein [Mass/volume] in Serum or Plasma 2023-08-26 18:51:36 5.6 g/dL F 5.7-8.2 Protein [Mass/volume] in Serum or Plasma 2023-08-26 18:51:36 183 mg/dL F 0.0-149.0 Cholesterol [Mass/volume] in Serum or Plasma 2023-08-26 18:51:36 126 mg/dL F 0.0-199.0 Bicarbonate [Moles/volume] in Serum or Plasma 2023-08-26 18:51:36 24 mEq/L F 20.0-31.0 Cholesterol in HDL [Mass/volume] in Serum or Plasma 2023-08-26 18:51:36 41 mg/dL F 40.0-60.0 Glucose [Mass/volume] in Serum or Plasma 2023-08-26 18:51:36 184 mg/dL F 70.0-99.0 Lactate dehydrogenase [Enzymatic activity/volume] in Serum or Plasma 2023-08-26 18:51:36 255 U/L F 120.0-246.0 Potassium [Moles/volume] in Serum or Plasma 2023-07-25 06:41:05 5.1 mEq/L F 3.5-5.5 GLOBULIN 2023-07-24 17:40:31 1.9 g/dL F 0.9-5.0 A/G RATIO 2023-07-24 17:40:31 1.9 Calc F 1.0-2.5 Albumin [Mass/volume] in Serum or Plasma by Bromocresol green (BCG) dye binding method 2023-07-24 17:39:41 3.6 g/dL F 3.4-4.8 Protein [Mass/volume] in Serum or Plasma 2023-07-24 17:39:41 5.5 g/dL F 5.7-8.2 Bicarbonate [Moles/volume] in Serum or Plasma 2023-07-24 17:39:41 23 mEq/L F 20.0-31.0 Glucose [Mass/volume] in Serum or Plasma 2023-07-24 17:39:41 187 mg/dL F 70.0-99.0 Lactate dehydrogenase [Enzymatic activity/volume] in Serum or Plasma 2023-07-24 17:39:41 223 U/L F 120.0-246.0 Potassium [Moles/volume] in Serum or Plasma 2023-06-29 01:29:17 4 mEq/L F 3.5-5.5 Potassium [Moles/volume] in Serum or Plasma 2023-06-29 01:29:17 4 mEq/L F 3.5-5.5 GLOBULIN 2023-06-28 15:39:26 1.8 g/dL F 0.9-5.0 A/G RATIO 2023-06-28 15:39:26 1.9 Calc F 1.0-2.5 A/G RATIO 2023-06-28 15:39:26 1.9 Calc F 1.0-2.5 GLOBULIN 2023-06-28 15:39:26 1.8 g/dL F 0.9-5.0 Albumin [Mass/volume] in Serum or Plasma by Bromocresol green (BCG) dye binding method 2023-06-28 15:38:38 3.4 g/dL F 3.4-4.8 Protein [Mass/volume] in Serum or Plasma 2023-06-28 15:38:38 5.2 g/dL F 5.7-8.2 Bicarbonate [Moles/volume] in Serum or Plasma 2023-06-28 15:38:38 28 mEq/L F 20.0-31.0 Glucose [Mass/volume] in Serum or Plasma 2023-06-28 15:38:38 175 mg/dL F 70.0-99.0 Lactate dehydrogenase [Enzymatic activity/volume] in Serum or Plasma 2023-06-28 15:38:38 225 U/L F 120.0-246.0 Albumin [Mass/volume] in Serum or Plasma by Bromocresol green (BCG) dye binding method 2023-06-28 15:38:38 3.4 g/dL F 3.4-4.8 Lactate dehydrogenase [Enzymatic activity/volume] in Serum or Plasma 2023-06-28 15:38:38 225 U/L F 120.0-246.0 Glucose [Mass/volume] in Serum or Plasma 2023-06-28 15:38:38 175 mg/dL F 70.0-99.0 Bicarbonate [Moles/volume] in Serum or Plasma 2023-06-28 15:38:38 28 mEq/L F 20.0-31.0 Protein [Mass/volume] in Serum or Plasma 2023-06-28 15:38:38 5.2 g/dL F 5.7-8.2 Potassium [Moles/volume] in Serum or Plasma 2023-05-24 07:48:42 3.8 mEq/L F 3.5-5.5 Potassium [Moles/volume] in Serum or Plasma 2023-05-24 07:48:42 3.8 mEq/L F 3.5-5.5 GLOBULIN 2023-05-24 01:22:42 1.9 g/dL F 0.9-5.0 A/G RATIO 2023-05-24 01:22:42 2 Calc F 1.0-2.5 A/G RATIO 2023-05-24 01:22:42 2 Calc F 1.0-2.5 GLOBULIN 2023-05-24 01:22:42 1.9 g/dL F 0.9-5.0 Albumin [Mass/volume] in Serum or Plasma by Bromocresol green (BCG) dye binding method 2023-05-24 01:21:33 3.8 g/dL F 3.4-4.8 Protein [Mass/volume] in Serum or Plasma 2023-05-24 01:21:33 5.7 g/dL F 5.7-8.2 Bicarbonate [Moles/volume] in Serum or Plasma 2023-05-24 01:21:33 26 mEq/L F 20.0-31.0 Glucose [Mass/volume] in Serum or Plasma 2023-05-24 01:21:33 216 mg/dL F 70.0-99.0 Lactate dehydrogenase [Enzymatic activity/volume] in Serum or Plasma 2023-05-24 01:21:33 214 U/L F 120.0-246.0 Albumin [Mass/volume] in Serum or Plasma by Bromocresol green (BCG) dye binding method 2023-05-24 01:21:33 3.8 g/dL F 3.4-4.8 Bicarbonate [Moles/volume] in Serum or Plasma 2023-05-24 01:21:33 26 mEq/L F 20.0-31.0 Glucose [Mass/volume] in Serum or Plasma 2023-05-24 01:21:33 216 mg/dL F 70.0-99.0 Lactate dehydrogenase [Enzymatic activity/volume] in Serum or Plasma 2023-05-24 01:21:33 214 U/L F 120.0-246.0 Protein [Mass/volume] in Serum or Plasma 2023-05-24 01:21:33 5.7 g/dL F 5.7-8.2 Folate [Mass/volume] in Serum or Plasma 2023-04-25 08:17:26 22.2 ng/mL F 5.5-16.0 Cobalamin (Vitamin B12) [Mass/volume] in Serum or Plasma 2023-04-25 08:17:26 412 pg/mL F 211.0-911.0 Folate [Mass/volume] in Serum or Plasma 2023-04-25 08:17:26 22.2 ng/mL F 5.5-16.0 Cobalamin (Vitamin B12) [Mass/volume] in Serum or Plasma 2023-04-25 08:17:26 412 pg/mL F 211.0-911.0 Potassium [Moles/volume] in Serum or Plasma 2023-04-25 08:14:24 3.5 mEq/L F 3.5-5.5 Potassium [Moles/volume] in Serum or Plasma 2023-04-25 08:14:24 3.5 mEq/L F 3.5-5.5 GLOBULIN 2023-04-24 18:08:00 2 g/dL F 0.9-5.0 A/G RATIO 2023-04-24 18:08:00 1.7 Calc F 1.0-2.5 A/G RATIO 2023-04-24 18:08:00 1.7 Calc F 1.0-2.5 GLOBULIN 2023-04-24 18:08:00 2 g/dL F 0.9-5.0 Albumin [Mass/volume] in Serum or Plasma by Bromocresol green (BCG) dye binding method 2023-04-24 18:06:58 3.4 g/dL F 3.4-4.8 Protein [Mass/volume] in Serum or Plasma 2023-04-24 18:06:58 5.4 g/dL F 5.7-8.2 Bicarbonate [Moles/volume] in Serum or Plasma 2023-04-24 18:06:58 25 mEq/L F 20.0-31.0 Glucose [Mass/volume] in Serum or Plasma 2023-04-24 18:06:58 198 mg/dL F 70.0-99.0 Lactate dehydrogenase [Enzymatic activity/volume] in Serum or Plasma 2023-04-24 18:06:58 209 U/L F 120.0-246.0 Lactate dehydrogenase [Enzymatic activity/volume] in Serum or Plasma 2023-04-24 18:06:58 209 U/L F 120.0-246.0 Albumin [Mass/volume] in Serum or Plasma by Bromocresol green (BCG) dye binding method 2023-04-24 18:06:58 3.4 g/dL F 3.4-4.8 Bicarbonate [Moles/volume] in Serum or Plasma 2023-04-24 18:06:58 25 mEq/L F 20.0-31.0 Glucose [Mass/volume] in Serum or Plasma 2023-04-24 18:06:58 198 mg/dL F 70.0-99.0 Protein [Mass/volume] in Serum or Plasma 2023-04-24 18:06:58 5.4 g/dL F 5.7-8.2 Potassium [Moles/volume] in Serum or Plasma 2023-04-03 22:25:13 3.1 mEq/L F 3.5-5.5 A/G RATIO 2023-04-03 16:22:32 1.8 Calc F 1.0-2.5 GLOBULIN 2023-04-03 16:22:32 1.9 g/dL F 0.9-5.0 Albumin [Mass/volume] in Serum or Plasma by Bromocresol green (BCG) dye binding method 2023-04-03 16:22:19 3.4 g/dL F 3.4-4.8 Protein [Mass/volume] in Serum or Plasma 2023-04-03 16:22:19 5.3 g/dL F 5.7-8.2 Bicarbonate [Moles/volume] in Serum or Plasma 2023-04-03 16:22:19 27 mEq/L F 20.0-31.0 Glucose [Mass/volume] in Serum or Plasma 2023-04-03 16:22:19 161 mg/dL F 70.0-99.0 Lactate dehydrogenase [Enzymatic activity/volume] in Serum or Plasma 2023-04-03 16:22:19 198 U/L F 120.0-246.0 Potassium [Moles/volume] in Serum or Plasma 2023-02-27 08:20:25 3.7 mEq/L F 3.5-5.5 Potassium [Moles/volume] in Serum or Plasma 2023-02-27 08:20:25 3.7 mEq/L F 3.5-5.5 GLOBULIN 2023-02-26 19:29:51 2.4 g/dL F 0.9-5.0 A/G RATIO 2023-02-26 19:29:51 1.7 Calc F 1.0-2.5 CHOL/HDL RATIO 2023-02-26 19:29:51 4.5 Calc F 3.3-5.0 VLDL-CHOL(CALC) 2023-02-26 19:29:51 63 mg/dL F 0.0-29.0 LDL-CHOLESTEROL 2023-02-26 19:29:51 57 mg/dL F 0.0-99.0 LDL-CHOLESTEROL 2023-02-26 19:29:51 57 mg/dL F 0.0-99.0 VLDL-CHOL(CALC) 2023-02-26 19:29:51 63 mg/dL F 0.0-29.0 CHOL/HDL RATIO 2023-02-26 19:29:51 4.5 Calc F 3.3-5.0 A/G RATIO 2023-02-26 19:29:51 1.7 Calc F 1.0-2.5 GLOBULIN 2023-02-26 19:29:51 2.4 g/dL F 0.9-5.0 Albumin [Mass/volume] in Serum or Plasma by Bromocresol green (BCG) dye binding method 2023-02-26 19:29:35 4.1 g/dL F 3.4-4.8 Protein [Mass/volume] in Serum or Plasma 2023-02-26 19:29:35 6.5 g/dL F 5.7-8.2 Protein [Mass/volume] in Serum or Plasma 2023-02-26 19:29:35 313 mg/dL F 0.0-149.0 Cholesterol [Mass/volume] in Serum or Plasma 2023-02-26 19:29:35 154 mg/dL F 0.0-199.0 Bicarbonate [Moles/volume] in Serum or Plasma 2023-02-26 19:29:35 27 mEq/L F 20.0-31.0 Cholesterol in HDL [Mass/volume] in Serum or Plasma 2023-02-26 19:29:35 34 mg/dL F 40.0-60.0 Glucose [Mass/volume] in Serum or Plasma 2023-02-26 19:29:35 178 mg/dL F 70.0-99.0 Lactate dehydrogenase [Enzymatic activity/volume] in Serum or Plasma 2023-02-26 19:29:35 239 U/L F 120.0-246.0 Bicarbonate [Moles/volume] in Serum or Plasma 2023-02-26 19:29:35 27 mEq/L F 20.0-31.0 Lactate dehydrogenase [Enzymatic activity/volume] in Serum or Plasma 2023-02-26 19:29:35 239 U/L F 120.0-246.0 Protein [Mass/volume] in Serum or Plasma 2023-02-26 19:29:35 313 mg/dL F 0.0-149.0 Cholesterol in HDL [Mass/volume] in Serum or Plasma 2023-02-26 19:29:35 34 mg/dL F 40.0-60.0 Albumin [Mass/volume] in Serum or Plasma by Bromocresol green (BCG) dye binding method 2023-02-26 19:29:35 4.1 g/dL F 3.4-4.8 Cholesterol [Mass/volume] in Serum or Plasma 2023-02-26 19:29:35 154 mg/dL F 0.0-199.0 Glucose [Mass/volume] in Serum or Plasma 2023-02-26 19:29:35 178 mg/dL F 70.0-99.0 Protein [Mass/volume] in Serum or Plasma 2023-02-26 19:29:35 6.5 g/dL F 5.7-8.2 Potassium [Moles/volume] in Serum or Plasma 2023-01-22 04:01:20 4.1 mEq/L F 3.5-5.5 Potassium [Moles/volume] in Serum or Plasma 2023-01-22 04:01:20 4.1 mEq/L F 3.5-5.5 GLOBULIN 2023-01-22 03:54:23 2.1 g/dL F 0.9-5.0 A/G RATIO 2023-01-22 03:54:23 1.9 Calc F 1.0-2.5 A/G RATIO 2023-01-22 03:54:23 1.9 Calc F 1.0-2.5 GLOBULIN 2023-01-22 03:54:23 2.1 g/dL F 0.9-5.0 Albumin [Mass/volume] in Serum or Plasma by Bromocresol green (BCG) dye binding method 2023-01-22 03:53:35 3.9 g/dL F 3.4-4.8 Protein [Mass/volume] in Serum or Plasma 2023-01-22 03:53:35 6 g/dL F 5.7-8.2 Bicarbonate [Moles/volume] in Serum or Plasma 2023-01-22 03:53:35 27 mEq/L F 20.0-31.0 Glucose [Mass/volume] in Serum or Plasma 2023-01-22 03:53:35 174 mg/dL F 70.0-99.0 Lactate dehydrogenase [Enzymatic activity/volume] in Serum or Plasma 2023-01-22 03:53:35 239 U/L F 120.0-246.0 Bicarbonate [Moles/volume] in Serum or Plasma 2023-01-22 03:53:35 27 mEq/L F 20.0-31.0 Albumin [Mass/volume] in Serum or Plasma by Bromocresol green (BCG) dye binding method 2023-01-22 03:53:35 3.9 g/dL F 3.4-4.8 Lactate dehydrogenase [Enzymatic activity/volume] in Serum or Plasma 2023-01-22 03:53:35 239 U/L F 120.0-246.0 Glucose [Mass/volume] in Serum or Plasma 2023-01-22 03:53:35 174 mg/dL F 70.0-99.0 Protein [Mass/volume] in Serum or Plasma 2023-01-22 03:53:35 6 g/dL F 5.7-8.2 GLOBULIN 2022-12-27 16:17:51 2 g/dL F 0.9-5.0 A/G RATIO 2022-12-27 16:17:51 1.9 Calc F 1.0-2.5 Albumin [Mass/volume] in Serum or Plasma by Bromocresol green (BCG) dye binding method 2022-12-27 16:17:40 3.7 g/dL F 3.4-4.8 Protein [Mass/volume] in Serum or Plasma 2022-12-27 16:17:40 5.7 g/dL F 5.7-8.2 Potassium [Moles/volume] in Serum or Plasma 2022-12-27 16:17:40 3.5 mEq/L F 3.5-5.5 Bicarbonate [Moles/volume] in Serum or Plasma 2022-12-27 16:17:40 26 mEq/L F 20.0-31.0 Glucose [Mass/volume] in Serum or Plasma 2022-12-27 16:17:40 149 mg/dL F 70.0-99.0 Lactate dehydrogenase [Enzymatic activity/volume] in Serum or Plasma 2022-12-27 16:17:40 209 U/L F 120.0-246.0 GLOBULIN 2022-11-24 03:59:49 2 g/dL F 0.9-5.0 A/G RATIO 2022-11-24 03:59:49 1.9 Calc F 1.0-2.5 Albumin [Mass/volume] in Serum or Plasma by Bromocresol green (BCG) dye binding method 2022-11-24 03:59:27 3.8 g/dL F 3.4-4.8 Potassium [Moles/volume] in Serum or Plasma 2022-11-24 03:59:27 4.1 mEq/L F 3.5-5.5 Protein [Mass/volume] in Serum or Plasma 2022-11-24 03:59:27 5.8 g/dL F 5.7-8.2 Bicarbonate [Moles/volume] in Serum or Plasma 2022-11-24 03:59:27 27 mEq/L F 20.0-31.0 Glucose [Mass/volume] in Serum or Plasma 2022-11-24 03:59:27 108 mg/dL F 70.0-99.0 Lactate dehydrogenase [Enzymatic activity/volume] in Serum or Plasma 2022-11-24 03:59:27 234 U/L F 120.0-246.0 GLOBULIN 2022-10-30 06:50:20 2 g/dL F 0.9-5.0 A/G RATIO 2022-10-30 06:50:20 1.9 Calc F 1.0-2.5 GLOBULIN 2022-10-30 06:50:20 2 g/dL F 0.9-5.0 A/G RATIO 2022-10-30 06:50:20 1.9 Calc F 1.0-2.5 Bicarbonate [Moles/volume] in Serum or Plasma 2022-10-30 06:49:36 28 mEq/L F 20.0-31.0 Potassium [Moles/volume] in Serum or Plasma 2022-10-30 06:49:36 4.1 mEq/L F 3.5-5.5 Protein [Mass/volume] in Serum or Plasma 2022-10-30 06:49:36 5.8 g/dL F 5.7-8.2 Albumin [Mass/volume] in Serum or Plasma by Bromocresol green (BCG) dye binding method 2022-10-30 06:49:36 3.8 g/dL F 3.4-4.8 Glucose [Mass/volume] in Serum or Plasma 2022-10-30 06:49:36 172 mg/dL F 70.0-99.0 Lactate dehydrogenase [Enzymatic activity/volume] in Serum or Plasma 2022-10-30 06:49:36 225 U/L F 120.0-246.0 Albumin [Mass/volume] in Serum or Plasma by Bromocresol green (BCG) dye binding method 2022-10-30 06:49:36 3.8 g/dL F 3.4-4.8 Potassium [Moles/volume] in Serum or Plasma 2022-10-30 06:49:36 4.1 mEq/L F 3.5-5.5 Protein [Mass/volume] in Serum or Plasma 2022-10-30 06:49:36 5.8 g/dL F 5.7-8.2 Bicarbonate [Moles/volume] in Serum or Plasma 2022-10-30 06:49:36 28 mEq/L F 20.0-31.0 Glucose [Mass/volume] in Serum or Plasma 2022-10-30 06:49:36 172 mg/dL F 70.0-99.0 Lactate dehydrogenase [Enzymatic activity/volume] in Serum or Plasma 2022-10-30 06:49:36 225 U/L F 120.0-246.0 GLOBULIN 2022-09-27 19:21:58 2.3 g/dL F 0.9-5.0 A/G RATIO 2022-09-27 19:21:58 1.7 Calc F 1.0-2.5 Potassium [Moles/volume] in Serum or Plasma 2022-09-27 19:21:36 3.9 mEq/L F 3.5-5.5 Protein [Mass/volume] in Serum or Plasma 2022-09-27 19:21:36 6.1 g/dL F 5.7-8.2 Albumin [Mass/volume] in Serum or Plasma by Bromocresol green (BCG) dye binding method 2022-09-27 19:21:36 3.8 g/dL F 3.4-4.8 Bicarbonate [Moles/volume] in Serum or Plasma 2022-09-27 19:21:36 28 mEq/L F 20.0-31.0 Glucose [Mass/volume] in Serum or Plasma 2022-09-27 19:21:36 219 mg/dL F 70.0-99.0 Lactate dehydrogenase [Enzymatic activity/volume] in Serum or Plasma 2022-09-27 19:21:36 202 U/L F 120.0-246.0 GLOBULIN 2022-08-28 04:36:23 2.2 g/dL F 0.9-5.0 A/G RATIO 2022-08-28 04:36:23 1.8 Calc F 1.0-2.5 CHOL/HDL RATIO 2022-08-28 04:36:23 6.7 Calc F 3.3-5.0 VLDL-CHOL(CALC) 2022-08-28 04:36:23 see comments F 0.0-29.0 Unable to Calculate.Unable to report when Triglycerides >400 LDL-CHOLESTEROL 2022-08-28 04:36:23 see comments F 0.0-99.0 Unable to Calculate.Unable to report when Triglycerides >400 A/G RATIO 2022-08-28 04:36:23 1.8 Calc F 1.0-2.5 GLOBULIN 2022-08-28 04:36:23 2.2 g/dL F 0.9-5.0 CHOL/HDL RATIO 2022-08-28 04:36:23 6.7 Calc F 3.3-5.0 LDL-CHOLESTEROL 2022-08-28 04:36:23 see comments F 0.0-99.0 Unable to Calculate.Unable to report when Triglycerides >400 VLDL-CHOL(CALC) 2022-08-28 04:36:23 see comments F 0.0-29.0 Unable to Calculate.Unable to report when Triglycerides >400 Albumin [Mass/volume] in Serum or Plasma by Bromocresol green (BCG) dye binding method 2022-08-28 04:35:20 4 g/dL F 3.4-4.8 Potassium [Moles/volume] in Serum or Plasma 2022-08-28 04:35:20 3.1 mEq/L F 3.5-5.5 Protein [Mass/volume] in Serum or Plasma 2022-08-28 04:35:20 6.2 g/dL F 5.7-8.2 Protein [Mass/volume] in Serum or Plasma 2022-08-28 04:35:20 554 mg/dL F 0.0-149.0 Cholesterol [Mass/volume] in Serum or Plasma 2022-08-28 04:35:20 187 mg/dL F 0.0-199.0 Bicarbonate [Moles/volume] in Serum or Plasma 2022-08-28 04:35:20 29 mEq/L F 20.0-31.0 Cholesterol in HDL [Mass/volume] in Serum or Plasma 2022-08-28 04:35:20 28 mg/dL F 40.0-60.0 Glucose [Mass/volume] in Serum or Plasma 2022-08-28 04:35:20 77 mg/dL F 70.0-99.0 Lactate dehydrogenase [Enzymatic activity/volume] in Serum or Plasma 2022-08-28 04:35:20 238 U/L F 120.0-246.0 Albumin [Mass/volume] in Serum or Plasma by Bromocresol green (BCG) dye binding method 2022-08-28 04:35:20 4 g/dL F 3.4-4.8 Glucose [Mass/volume] in Serum or Plasma 2022-08-28 04:35:20 77 mg/dL F 70.0-99.0 Lactate dehydrogenase [Enzymatic activity/volume] in Serum or Plasma 2022-08-28 04:35:20 238 U/L F 120.0-246.0 Protein [Mass/volume] in Serum or Plasma 2022-08-28 04:35:20 554 mg/dL F 0.0-149.0 Protein [Mass/volume] in Serum or Plasma 2022-08-28 04:35:20 6.2 g/dL F 5.7-8.2 Cholesterol [Mass/volume] in Serum or Plasma 2022-08-28 04:35:20 187 mg/dL F 0.0-199.0 Bicarbonate [Moles/volume] in Serum or Plasma 2022-08-28 04:35:20 29 mEq/L F 20.0-31.0 Potassium [Moles/volume] in Serum or Plasma 2022-08-28 04:35:20 3.1 mEq/L F 3.5-5.5 Cholesterol in HDL [Mass/volume] in Serum or Plasma 2022-08-28 04:35:20 28 mg/dL F 40.0-60.0 A/G RATIO 2022-07-24 20:39:37 1.7 Calc F 1.0-2.5 GLOBULIN 2022-07-24 20:39:37 2.1 g/dL F 0.9-5.0 Potassium [Moles/volume] in Serum or Plasma 2022-07-24 20:39:24 3.5 mEq/L F 3.5-5.5 Albumin [Mass/volume] in Serum or Plasma by Bromocresol green (BCG) dye binding method 2022-07-24 20:39:22 3.6 g/dL F 3.4-4.8 Protein [Mass/volume] in Serum or Plasma 2022-07-24 20:39:22 5.7 g/dL F 5.7-8.2 Bicarbonate [Moles/volume] in Serum or Plasma 2022-07-24 20:39:22 31 mEq/L F 20.0-31.0 Glucose [Mass/volume] in Serum or Plasma 2022-07-24 20:39:22 144 mg/dL F 70.0-99.0 Lactate dehydrogenase [Enzymatic activity/volume] in Serum or Plasma 2022-07-24 20:39:22 218 U/L F 120.0-246.0 GLOBULIN 2022-06-22 17:30:23 2.2 g/dL F 0.9-5.0 A/G RATIO 2022-06-22 17:30:23 1.7 Calc F 1.0-2.5 Albumin [Mass/volume] in Serum or Plasma by Bromocresol green (BCG) dye binding method 2022-06-22 17:30:12 3.8 g/dL F 3.4-4.8 Potassium [Moles/volume] in Serum or Plasma 2022-06-22 17:30:12 3.2 mEq/L F 3.5-5.5 Protein [Mass/volume] in Serum or Plasma 2022-06-22 17:30:12 6 g/dL F 5.7-8.2 Bicarbonate [Moles/volume] in Serum or Plasma 2022-06-22 17:30:12 33 mEq/L F 20.0-31.0 Glucose [Mass/volume] in Serum or Plasma 2022-06-22 17:30:12 200 mg/dL F 70.0-99.0 Lactate dehydrogenase [Enzymatic activity/volume] in Serum or Plasma 2022-06-22 17:30:12 212 U/L F 120.0-246.0 GLOBULIN 2022-05-25 23:33:37 2.1 g/dL F 0.9-5.0 A/G RATIO 2022-05-25 23:33:37 1.8 Calc F 1.0-2.5 A/G RATIO 2022-05-25 23:33:37 1.8 Calc F 1.0-2.5 GLOBULIN 2022-05-25 23:33:37 2.1 g/dL F 0.9-5.0 Potassium [Moles/volume] in Serum or Plasma 2022-05-25 23:33:20 3 mEq/L F 3.5-5.5 Protein [Mass/volume] in Serum or Plasma 2022-05-25 23:33:20 5.9 g/dL F 5.7-8.2 Albumin [Mass/volume] in Serum or Plasma by Bromocresol green (BCG) dye binding method 2022-05-25 23:33:20 3.8 g/dL F 3.4-4.8 Bicarbonate [Moles/volume] in Serum or Plasma 2022-05-25 23:33:20 33 mEq/L F 20.0-31.0 Glucose [Mass/volume] in Serum or Plasma 2022-05-25 23:33:20 233 mg/dL F 70.0-99.0 Lactate dehydrogenase [Enzymatic activity/volume] in Serum or Plasma 2022-05-25 23:33:20 224 U/L F 120.0-246.0 Glucose [Mass/volume] in Serum or Plasma 2022-05-25 23:33:20 233 mg/dL F 70.0-99.0 Protein [Mass/volume] in Serum or Plasma 2022-05-25 23:33:20 5.9 g/dL F 5.7-8.2 Potassium [Moles/volume] in Serum or Plasma 2022-05-25 23:33:20 3 mEq/L F 3.5-5.5 Albumin [Mass/volume] in Serum or Plasma by Bromocresol green (BCG) dye binding method 2022-05-25 23:33:20 3.8 g/dL F 3.4-4.8 Bicarbonate [Moles/volume] in Serum or Plasma 2022-05-25 23:33:20 33 mEq/L F 20.0-31.0 Lactate dehydrogenase [Enzymatic activity/volume] in Serum or Plasma 2022-05-25 23:33:20 224 U/L F 120.0-246.0 GLOBULIN 2022-04-24 21:50:59 2.2 g/dL F 0.9-5.0 A/G RATIO 2022-04-24 21:50:59 1.8 Calc F 1.0-2.5 Albumin [Mass/volume] in Serum or Plasma by Bromocresol green (BCG) dye binding method 2022-04-24 21:50:18 4 g/dL F 3.4-4.8 Potassium [Moles/volume] in Serum or Plasma 2022-04-24 21:50:18 3.3 mEq/L F 3.5-5.5 Protein [Mass/volume] in Serum or Plasma 2022-04-24 21:50:18 6.2 g/dL F 5.7-8.2 Bicarbonate [Moles/volume] in Serum or Plasma 2022-04-24 21:50:18 29 mEq/L F 20.0-31.0 Glucose [Mass/volume] in Serum or Plasma 2022-04-24 21:50:18 277 mg/dL F 70.0-99.0 Lactate dehydrogenase [Enzymatic activity/volume] in Serum or Plasma 2022-04-24 21:50:18 211 U/L F 120.0-246.0 GLOBULIN 2022-04-03 04:22:39 2.1 g/dL F 0.9-5.0 A/G RATIO 2022-04-03 04:22:39 1.8 Calc F 1.0-2.5 Potassium [Moles/volume] in Serum or Plasma 2022-04-02 16:28:53 3.6 mEq/L F 3.5-5.5 Albumin [Mass/volume] in Serum or Plasma by Bromocresol green (BCG) dye binding method 2022-04-02 16:28:53 3.8 g/dL F 3.4-4.8 Protein [Mass/volume] in Serum or Plasma 2022-04-02 16:28:53 5.9 g/dL F 5.7-8.2 Bicarbonate [Moles/volume] in Serum or Plasma 2022-04-02 16:28:53 30 mEq/L F 20.0-31.0 Glucose [Mass/volume] in Serum or Plasma 2022-04-02 16:28:53 324 mg/dL F 70.0-99.0 Lactate dehydrogenase [Enzymatic activity/volume] in Serum or Plasma 2022-04-02 16:28:53 208 U/L F 120.0-246.0 GLOBULIN 2022-02-21 01:20:58 2.3 g/dL F 0.9-5.0 A/G RATIO 2022-02-21 01:20:58 1.7 Calc F 1.0-2.5 CHOL/HDL RATIO 2022-02-21 01:20:58 9.3 Calc F 3.3-5.0 VLDL-CHOL(CALC) 2022-02-21 01:20:58 see comments F 0.0-29.0 Unable to Calculate.Unable to report when Triglycerides >400 LDL-CHOLESTEROL 2022-02-21 01:20:58 see comments F 0.0-99.0 Unable to Calculate.Unable to report when Triglycerides >400 A/G RATIO 2022-02-21 01:20:58 1.7 Calc F 1.0-2.5 GLOBULIN 2022-02-21 01:20:58 2.3 g/dL F 0.9-5.0 VLDL-CHOL(CALC) 2022-02-21 01:20:58 see comments F 0.0-29.0 Unable to Calculate.Unable to report when Triglycerides >400 CHOL/HDL RATIO 2022-02-21 01:20:58 9.3 Calc F 3.3-5.0 LDL-CHOLESTEROL 2022-02-21 01:20:58 see comments F 0.0-99.0 Unable to Calculate.Unable to report when Triglycerides >400 Albumin [Mass/volume] in Serum or Plasma by Bromocresol green (BCG) dye binding method 2022-02-21 01:19:54 4 g/dL F 3.4-4.8 Potassium [Moles/volume] in Serum or Plasma 2022-02-21 01:19:54 3.5 mEq/L F 3.5-5.5 Protein [Mass/volume] in Serum or Plasma 2022-02-21 01:19:54 6.3 g/dL F 5.7-8.2 Protein [Mass/volume] in Serum or Plasma 2022-02-21 01:19:54 582 mg/dL F 0.0-149.0 Cholesterol [Mass/volume] in Serum or Plasma 2022-02-21 01:19:54 149 mg/dL F 0.0-199.0 Bicarbonate [Moles/volume] in Serum or Plasma 2022-02-21 01:19:54 29 mEq/L F 20.0-31.0 Cholesterol in HDL [Mass/volume] in Serum or Plasma 2022-02-21 01:19:54 16 mg/dL F 40.0-60.0 Glucose [Mass/volume] in Serum or Plasma 2022-02-21 01:19:54 314 mg/dL F 70.0-99.0 Lactate dehydrogenase [Enzymatic activity/volume] in Serum or Plasma 2022-02-21 01:19:54 226 U/L F 120.0-246.0 Cholesterol [Mass/volume] in Serum or Plasma 2022-02-21 01:19:54 149 mg/dL F 0.0-199.0 Protein [Mass/volume] in Serum or Plasma 2022-02-21 01:19:54 582 mg/dL F 0.0-149.0 Protein [Mass/volume] in Serum or Plasma 2022-02-21 01:19:54 6.3 g/dL F 5.7-8.2 Cholesterol in HDL [Mass/volume] in Serum or Plasma 2022-02-21 01:19:54 16 mg/dL F 40.0-60.0 Albumin [Mass/volume] in Serum or Plasma by Bromocresol green (BCG) dye binding method 2022-02-21 01:19:54 4 g/dL F 3.4-4.8 Bicarbonate [Moles/volume] in Serum or Plasma 2022-02-21 01:19:54 29 mEq/L F 20.0-31.0 Potassium [Moles/volume] in Serum or Plasma 2022-02-21 01:19:54 3.5 mEq/L F 3.5-5.5 Lactate dehydrogenase [Enzymatic activity/volume] in Serum or Plasma 2022-02-21 01:19:54 226 U/L F 120.0-246.0 Glucose [Mass/volume] in Serum or Plasma 2022-02-21 01:19:54 314 mg/dL F 70.0-99.0 Encounters No encounter information to report Immunizations Ordered Immunization Name Filled Immunization Name Date Status Comments Refusal Reason TST-PPD intradermal 2023-07-23 16:15:00 TST-PPD intradermal 2022-07-23 19:15:00 Covid-19 Vaccination 2020-05-05 08:00:00 Covid-19 Vaccination 2020-04-15 08:00:00 Plan of Treatment Planned Activity Provider Planned Date Details Commen ts Diagnostic Test Pending Alan Marveljayme Huntington 2023-10-25 06:45:06 Hemoglobin [Mass/volume] in Blood [code = 718-7] Diagnostic Test Pending [facility] 2022-02-17 06:00:00 Reticulocytes/100 erythrocytes in Blood by Automated count [code = 82221-6] [facility] 2022-[facility]-17 06:00:00 Glucose [Mass/volume] in Serum or Plasma [code = 2345-7] [facility] 2022-11-17 05:00:00 Alanine aminotransferase [Enzymatic activity/volume] in Serum or Plasma [code = 1742-6] Diagnostic Test Pending [facility] 2022-02-17 06:00:00 Parathyrin.intact [Mass/volume] in Serum or Plasma [code = 2731-8] [facility] 2022-02-17 06:00:00 Ferritin [Mass/volume] in Serum or Plasma [code = 2276-4] [facility] 2022-02-17 06:00:00 25-Hydroxyvitamin D3+25-Hydroxyvitamin D2 [Mass/volume] in Serum or Plasma [code = 19850-8] Diagnostic Test Pending Alan Mccall 2022-02-17 06:00:00 Aluminum [Mass/volume] in Serum or Plasma [code = 5574-9] Diagnostic Test Pending Alan Mccall [facility] (PD) 2023-08-19 13:01:44 CCPD [code = AJR523] Diet Order Alan Mccall [facility] (PD) January 15, 2022 Diet Calorie 25 kcal/kg Fluid Value 1200 mL/d Phosphorus Value 1100 mg/d Potassium Value 2500 mg/d Protein Value 1.3 gm/kg Sodium Value 2000 mg/d Calculated Weight 87 kg
--- NOTE | 2024-03-13 14:57 | ECG_ITS ---
Test Date: 2024-03-13 15:00:36 Measurements Intervals [place] Rate: 65 P: 88 [place]: 172 QRS: -54 QRSD: 101 T: -46 QT: 474 QTc: 495 Interpretive Statements SINUS RHYTHM PATTERN CONSISTENT WITH PULMONARY DISEASE LEFT ANTERIOR FASCICULAR BLOCK [QRS AXIS <= -45, QR IN I, RS IN II] PROLONGED QT INTERVAL Compared to ECG 02/14/2024 20:14:02 Prolonged QT interval now present Incomplete right bundle-branch block no longer present Myocardial infarct finding no longer present T-wave abnormality no longer present Electronically Signed On 03-13-2024 21:26:21 STEAM TENDER by Orlando Spencer M.D.
[2024-03-13 15:13] LABS: Basophils Percent Auto 0.1 % (0.2-1.2); Eosinophils Percent Auto 0.2 % (0-4.4); Hematocrit 27.9 % (42.0-52.0); Hemoglobin 9.1 g/dL (14.0-18.0); Immature Granulocyte Absolute 0.16 K/mm3 (0.00-0.031); Immature Granulocyte Percent A 1.9 % (0-0.5); Lymphocytes Absolute Auto 0.68 K/mm3 (0.9-3.2); Lymphocytes Percent Auto 8.1 % (18.3-44.2); Mean Corpuscular HGB Conc 32.6 g/dl (32-36); Mean Corpuscular Hemoglobin 30.4 pg (26-34); Mean Corpuscular Volume 93.3 fl (80-100); Mean Platelet Volume 11.1 fl (7.4-10.4); Monocytes Absolute Auto 0.9 K/mm3 (0.1-0.6); Monocytes Percent Auto 10.5 % (2.6-8.5); Neutrophils Absolute Auto 6.6 K/mm3 (1.3-6.7); Neutrophils Percent Auto 79.2 % (45.5-73.1); Platelet Count Result 141 k/mm3 (150-375); Red Blood Count 2.99 M/mm3 (4.6-6.20); Red Cell Distribution Width 15.9 % (11.5-14.5); White Blood Count 8.4 K/mm3 (4.5-10.0)
[2024-03-13 15:23] LABS: Prothrombin Time 13.9 Seconds (11.1-14.7)
[2024-03-13 15:24] LABS: Partial Thromboplastin Time 31.3 Seconds (22.3-36.8)
[2024-03-13 15:30] LABS: Alanine Aminotransferase 17 U/L (6-50); Albumin Level 3.1 g/dL (3.5-5.1); Alkaline Phosphatase 67 U/L (38-126); Anion Gap 14 mmol/L (4-12); Aspartate Amino Transferase 23 U/L (17-59); Bilirubin,Total 0.5 mg/dL (0.2-1.3); Blood Urea Nitrogen 43 mg/dL (9-20); Calcium 7.8 mg/dL (8.4-10.2); Carbon Dioxide 27 mmol/L (22-30); Chloride 92 mmol/L (98-107); Estimated CRCL calculation 9 ml/min; Estimated Glomerular Filt Rate 5; Glucose 171 mg/dL (65-110); Potassium 3.1 mmol/L (3.4-5.0); Sodium 133 mmol/L (137-145)
--- OUTSIDE RECORDS SUMMARY | 2024-03-13 16:14 | XMS_ITS | Referral Summary ---
Author Organization [facility] Address [address] [place] [address] Care Team Providers Care Documentation Improvement Specialist Name Role Phone Deandre Bojorquez MD Unavailable [phone] Jeff Strickland MD Primary Care Provider [phone] Source Comments [facility],non-owned Affiliates and Associated Physician Practices is amultiple site organization consisting of ambulatory clinics and hospital sitesin [place], [place], [place] and [place]. This disclosure is being madepursuant to the Care Everywhere program and may not contain all information available regarding this patient. Last updated 17.[facility] Encounters Date Type Department Care Team Description 03/12/2024 Lab Requisition [facility] [address] [place] [address] Alan Davenport MD 03/03/2024 Travel 03/03/2024 1:20 PM LAMINATOR HAND Office Visit [facility] - Cardiology [address], [facility] [address] [place] [address] Maylin Cutler DO Chronic diastolic heart failure (HCC) (Primary Dx); Resistant hypertension; End-stage renal disease on peritoneal dialysis (HCC); Atherosclerosis of flandreau coronary artery of flandreau heart without angina pectoris; Hypertriglyceridemia ; Type 2 diabetes mellitus with other specified complication, unspecified whether alf insulin use (HCC) 02/04/2024 Lab Requisition [facility] [address] [place] [address] Alan Davenport MD 01/08/2024 Refill [facility] - Cardiology [address], [place] [address] [place] [phone] Lorna Roca, MACHINE WELT BUTTER REFILL from Last 3 Months Allergies Active [...] 20 MG tabletIndications: Coronary artery disease involving flandreau coronary artery of flandreau heart without angina pectoris Take 1 (one) [...] (Aspirin 81) 81 MG tabletIndications: CAD in flandreau artery Take 1 (one) tablet by mouth once daily 90 tablet 3 4 Active cloNIDine (Catapres) 0.1 MG/24HR patch Apply 1 (one) patch to skin every 7 days Active dilTIAZem ER 12hr 120 MG capsule Take 1 (one) capsule by mouth 2 times daily 60 capsule 11 4 Active fenofibrate (Tricor) 145 MG tabletIndications: Coronary artery disease involving flandreau coronary artery of flandreau heart without angina pectoris Take 1 (one) tablet by mouth once daily 90 tablet 4 4 Active atorvastatin (Lipitor) 80 MG tabletIndications: Coronary artery disease involving flandreau coronary artery of flandreau heart without angina pectoris Take 1 (one) tablet by mouth once daily 90 tablet 3 4 Active hydrALAZINE (Apresoline) 10 MG tablet Take 2 (two) tablets by mouth 3 times daily 180 tablet 3 4 Active B Ianxmkt-L-Frsgr Acid (Dialyvite 800) 0.8 MG 1 tablet Orally Once a day for 30 day(s) Active minoxidil (LONITEN) 2.5 MG tablet Take 1 (one) tablet by mouth 2 times daily 0 03/03/19 25 Discontinu ed(List Clean-Up) Continuous Blood Gluc Loft Worker Pile Driving (FREESTYLE VIKRAM READER) KERON Use 1 Each [...] were not included. Grace Interiano 1955 Referring Laborer Operator: Alan Mccall Dialysis Info: Type: PD--> HD-->PD Time: 01/17/2020 Blood Type: O NEG Body mass index is 37.54 kg/m??. ALERTS : Dr. Mendoza following enhancing lesion noted to upper pole of the left kidney. IR biopsy confirming oncocytoma in 07/2020. [employer]: Nadia Stock MD ESRD r/t DM2 and HTN Past Medical History: Diagnosis Date Arthropathy Dr Strickland manages. CHF (congestive heart failure) (CMS/HCC) 2 yrs ago Safety Lead is Dr. Becerra in [place]. CKD (chronic kidney disease), stage V (CMS/HCC) Community acquired pneumonia 2018 [facility] hospitalized. Diabetes mellitus (CMS/HCC) 20 years. [facility]. [employer] Dr. Davis at [place]. 03/26/21 last seen. Esophageal reflux takes med [...] on CPAP Renal cell carcinoma (CMS/HCC) [address] [place] Pruett surgeon. followed up every 6 [...] opinion statement. Am J Transplant. 2020;21(2):460-474. doi: 10.1111/ajt.08372. Epub 2019Dec 09. PMID: [id number]. Urology: 08/06/2023 Attestation signed by Thomas Mendoza [...] CK7 and BerEP4. If this biopsy is customer success representative of the entire lesion, it would [...] Krystal Abel, PORSHA Sent: 03/28/2022 2:07 PM LAMINATOR HAND To: Martinez Sandhu MD, * Papito. I [...] in Nov. Thank you Krystal Abel RN [facility] Field Inspector [phone] endoscopic resection of a sellar mass: 11/22/2021 [...] a formal visual hay exam with his resin shaver. We reviewed the surgical pathology report. He may restart his baby aspirin. At this time, I recommend a follow up MRI pituitary protocol in 3- 6 months with a visit with me after imaging and patient is agreeable. Strict return precautions were reviewed. NATOR HAND Cardiology: 08/28/2023 HPI: Mr. Interiano presents to [...] on Blood pressures Solange Guido MD, MD Single Ending Machine Operator [place] [facility] 08/28/2023 Cardiology: 10/25/2021 Impression and Plan: 1. CAD post LAD PCI 2. ESRD 3. Atypical chest pain Plan lexiscan stress (no ) due to HTN and also resting echo (patient told he had abnormalities on echo though there is no record of this) Rest of plan per fellow note. Solange Guido MD, MD Single Ending Machine Operator [place] [facility] 10/25/2021 07/02/2021 Assessment/plan: [...] attending Dr. Phan. Ted Ring MD PGY-5, Section Leader Screen Printing [facility] Cardiology Attending Attestation: Patient seen and examined with Fellow. Please see note for further details. I confirm history, exam, assessment and plan. In addition I note: Interval history: Patient presented to clinic with concerns about BP. Sometimes in 170's then after taking meds (2 hours) in 90's. Feels lightheaded and nauseous when BP low. Frequent BP med changes per ophthalmic technician. Encouraged patient to continue detailed BP log. [...] back and forth- typically this is the ophthalmic technician in the case of ESRD. DO Markus [...] attending Dr. Guido. Ted Ring MD PGY-6, Section Leader Screen Printing [facility] Impression and Plan: 1. CAD post PCI of LAD 2. Hypertriglyceredimia Start Tricor Solange Guido MD, MD Single Ending Machine Operator [facility] 07/18/2022 Pertinent Previous Committee Presentations: 12/19/2022 Committee Review Decision: Make Inactive Committee Discussion Details: Pt was presented at [facility] to make inactive on the kidney txp wait list. Reviewed pt in [facility], I/P at [facility] 11/29 - 12/03. Sternal Fxr, T2 & T12 thoracic spinal fxr. Likely to get sternal plate surgery. Pt unable to complete annual txp testing, annual cardiololgy appt, Urology appt at this time. Per team, make inactive on wait list. 05/02/2022: Induction Method: Immunosuppression Induction Method/Plan: Antithymocyte globulin (rabbit) (Thymoglobulin) 3 mg/kg Committee Discussion Details: Pt brought to [facility] to discuss possible listing. -Reviewed PMH [...] -Follow up imaging was previously discussed at [facility] on 03/28/2022 and again today. Radiology unable to rule out cancer on imaging. Team decision after [facility] 03/28/2022 was to have pt complete [...] resection completed on 11/22/2021. Neuro surg Dr. eDlvalle has sent a letter of clearance. Pt [...] 03/28/2022: Committee Discussion Details: Pt brought to [facility] to review recent CT imaging concerning [...] 09/27/2021: Committee Discussion Details: Pt brought to [facility] due to Pituitary tumor. -Reviewed pts [...] 08/10/2020: Committee Discussion Details: Pt brought to [facility] to discuss recent PCI to mid [...] portion of the study, as per above. [facility]: 08/04/2020 HEMODYNAMIC FINDINGS: LVEDP 18 mmmHg [...] nature. > Dictated by Lalit Muñoz DO (president celebrity acquistion). Renal US: 05/21/2023 FINDINGS: Right kidney: 10.0 [...] Impression: It is the impression of this outreach and education social worker that Grace Interiano has several positive [...] to be the back up caregiver. Plan: manager workers compensation to provide supportive services as needed. Patient remains a reasonable candidate for transplant from a psychosocial perspective. Psychiatric Consult Recommended: No Transplant Seafood Process Worker: RAJ Portillo, VIAL GAUGER Abdominal Transplant Seafood Process Worker [phone] Transplant Caregiver Confirmation Note Caregiver Confirmation Date Primary Name of Primary: Harriet Interiano Relationship: spouse - Confirmed during initial assessment 01/14/2022 - CODING SPECIALIST HOME HEALTH form received on 01/14/2022 - Secondary Name [...] Immunizations Name Administration Dates Next Due Marla DivvyHQ primary monoval ent 12+ yr 0.3mL Purple [...] Comments Blood Pressure 134/74 03/03/2024 12:47 PM LAMINATOR HAND Pulse 65 03/03/2024 12:47 PM LAMINATOR HAND Temperature 36.2 ??C (97.2 ??F) 08/06/2023 1:56 PM CD T Respiratory Rate 18 01/14/2022 1:01 PM LAMINATOR HAND Oxygen Saturation 96% 03/03/2024 12:47 PM LAMINATOR HAND Inhaled Oxygen Concentration - - Weight 119.7 kg (264 lb) 03/03/2024 12:47 PM LAMINATOR HAND Height 172.7 cm (5' 8 ) 03/03/2024 12:47 PM LAMINATOR HAND Body Mass Index 40.14 03/03/2024 12:47 PM LAMINATOR HAND Functional Status Functional Status Response Date of [...] Info) Description 08/04/2024 11:30 AM CDT Appointment [facility] [address] [place] [address] Thomas Mendoza MD [address] [place] [address] [address] [place] [phone] 08/04/2024 1:30 PM CDT Office Visit [facility] - Urology [address] [place] [address] Thomas Mendoza MD [address] [place] [address] [address] [place] [phone] Medical Devices Implanted Type Area Tax Preparer Device Identifier Shelf Expiration Date Model / Serial / Lot Sys Cor Stent Xience Srr 3mm 18mm Rap Ex Implanted:Qty: 1 on 08/04/2020 by Javier Lan MD at [facility] Stent Coronary [employer] 06/19/2022 [id number] Description:STENT Sys Cor Stent Xience Srr 3mm 8mm Rap Ex Implanted:Qty: 1 on 08/04/2020 by Javier Lan MD at [facility] Stent Coron[employer] 09/03/2021 [id number] Description:stent Procedures Procedure Name Priority Date/Time Associated Diagnosis Comments HOLD HLA SPECIMEN Routine 03/05/2024 1:4 0 PM LAMINATOR HAND HOLD HLA SPECIMEN Routine 01/27/2024 3:2 3 PM LAMINATOR HAND HEPATITIS C ANTIBODY Routine 01/14/2022 9:54 AM LAMINATOR HAND Pre-transplant evaluation for kidney transplant HEMOGLOBIN A1C Routine 01/14/2022 9:54 AM LAMINATOR HAND Pre-transplant evaluation for kidney transplant from Last 3 Months or Most Recently Relevant to Health Maintenance Results * HOLD HLA SPECIMEN (03/05/2024 1:40 PM LAMINATOR HAND) Only the most recent of2 resultswithin the time period is included. Hold HLA Specimen 03/12/2024 3:00 PM LAMINATOR HAND [facility] ([facility]) Comment:The Hold HLA specime n has been received into the lab and will be held for 5 years at 4 degrees. Blood BLOOD SPECIMEN / Unknown 03/05/2024 1:40 PM LAMINATOR HAND 03/12/2024 1:40 PM LAMINATOR HAND Alan Davenport MD LAB - BLOOD BANK ORD ERABLES [facility] ([facility]) [address] [place] [address] * (ABNORMAL) HEMOGLOBIN A1C (01/14/2022 9:54 AM LAMINATOR HAND) Hemoglobin A1c 8.7(H) <=5.6 % 01/14/2022 1:10 PM LAMINATOR HAND [facility] Estimated Average Glucose 203 mg/dL 01/14/2022 1:10 PM LAMINATOR HAND [facility] Comment: HbA1c Interpretation: Normal [...] Lab Venipuncture / Unknown 01/14/2022 9:54 AM LAMINATOR HAND 01/14/2022 11:00 AM LAMINATOR HAND Marbin Flores MD LAB - CHEMISTRY [facility] [address] [address], [facility] [phone] * HEPATITIS C ANTIBODY (01/14/2022 9:54 AM LAMINATOR HAND) Pathologist [facility] Hepatitis C Antibody Non-react sylvie Non-reac tive 01/14/2022 11:52 AM LAMINATOR HAND [facility] Comment:Hepatitis C Antibody screen indicates no serologic evidence of past or current infection with Hepatitis C Virus. Patients with unexplained liver disease who are immunocompromised or suspected of having acute Hepatitis C infection may benefit from Nucleic Acid Test (MARLON) for Hepatitis C Viral RNA to confirm Hepatitis C status. Blood BLOOD SPECIMEN / Unknown Lab Venipuncture / Unknown 01/14/2022 9:54 AM LAMINATOR HAND 01/14/2022 10:48 AM LAMINATOR HAND Marbin Flores MD LAB - CHEMISTRY [facility] [address] [address], [facility] [phone] from Last 3 Months or Most Recently Relevant to Health Maintenance Administered Medications Advance Directives * Full Code (Latest Code Status on File) Date Activated Date Inactivated Comments 08/04/2020 11:48 AM 08/08/2020 9:40 AM Care Teams Documentation Improvement Specialist Relationship Specialty Start Date End Date Jeff Strickland MD [address] [place] [address] PCP - General 03/05/18 [place] [address] [address] Orthopedic Surgery 03/28/17
--- OUTSIDE RECORDS SUMMARY | 2024-03-13 16:14 | XMS_ITS | Encounter Summary ---
Author Organization [facility] Address [facility] [place] [address] Care Team Providers Care Utilization Management Manager Name Role Phone Deandre Bojorquez MD Unavailable [phone] Jeff Strickland MD Primary Care Provider [phone] Encounter Details Date Type Department Care Team (Late st Contact Info) Description 09/30/2023 Lab Requisition [facility] MA[facility] LAB [address] [place] [phone] Alan Davenport MD [facility] [place] [address] Social History Tobacco Use Types Packs/Day Years [...] Info) Description 08/04/2024 11:30 AM CDT Appointment [facility] MRI [address] [place] [address] Thomas Mendoza MD [address] [facility] 2[address] [place] [phone] 08/04/2024 1:30 PM CDT Office Visit [facility] - Urology [address] [place] [address] Thomas Mendoza MD [address] [facility] 2L [place] [address] documented as of this encounter Procedures Procedure Name Priority Date/Time Associated Diagnosis Comments HOLD HLA SPECIMEN Routine 09/24/2023 3:2 7 PM CDT documented in this encounter Results * HOLD HLA SPECIMEN (09/24/2023 3:27 PM CDT) Hold HLA Specimen 09/30/2023 4:32 PM CDT [facility]) Comment:The Hold HLA specime n has been received into the lab and will be held for 5 years at 4 degrees. Blood BLOOD SPECIMEN / Unknown 09/24/2023 3:27 PM CDT 09/30/2023 3:27 PM CDT Alan Davenport MD LAB - BLOOD BANK ORD ERABLES [facility] ([facility]) [address] [place], [place] [phone] [place] [address] documented in this encounter Visit Diagnoses Not on filedocumented in this encounter Care Teams Utilization Management Manager Relationship Specialty Start Date End Date Jeff Strickland MD [address] [place] [address] PCP - General 03/05/18 [place] [address] [address] Orthopedic Surgery 03/28/17 documented as of this encounter
--- OUTSIDE RECORDS SUMMARY | 2024-03-13 16:14 | XMS_ITS | Encounter Summary ---
Author Organization [facility] Address [facility] [place] [address] Care Team Providers Care Residency Program Coordinator Name Role Phone Deandre Bojorquez MD Unavailable [phone] Jeff Strickland MD Primary Care Provider [phone] Encounter Details Date Type Department Care Team (Late st Contact Info) Description 07/31/2023 Lab Requisition [facility] [address] [place] [phone] Alan Davenport MD [facility] OF ABD [place] [address] Social History Tobacco Use Types Packs/Day Years [...] Info) Description 08/04/2024 11:30 AM CDT Appointment [facility] MRI [address] [place] [address] Thomas Mendoza MD [address] [facility] 2L DIV [place] [phone] 08/04/2024 1:30 PM CDT Office Visit [facility] - Urology [address] [place] [address] Thomas Mendoza MD [address] [facility] 2L DIV [place] [address] documented as of this encounter Procedures Procedure Name Priority Date/Time Associated Diagnosis Comments HOLD HLA SPECIMEN Routine 07/23/2023 2:0 5 PM CDT documented in this encounter Results * HOLD HLA SPECIMEN (07/23/2023 2:05 PM CDT) Hold HLA Specimen 07/31/2023 3:32 PM CDT [facility]) Comment:The Hold HLA specime n has been received into the lab and will be held for 5 years at 4 degrees. Blood BLOOD SPECIMEN / Unknown 07/23/2023 2:05 PM CDT 07/31/2023 2:06 PM CDT Alan Davenport MD LAB - BLOOD BANK ORD ERABLES [facility] ([facility]) [address] [place], [place] [id number] [place] [address] documented in this encounter Visit Diagnoses Not on filedocumented in this encounter Care Teams Residency Program Coordinator Relationship Specialty Start Date End Date Jeff Strickland MD [address] [place] [address] PCP - General 03/05/18 [place] [address] [address] Orthopedic Surgery 03/28/17 documented as of this encounter
--- OUTSIDE RECORDS SUMMARY | 2024-03-13 16:14 | XMS_ITS ---
Author Organization [facility] Address [address] [place] [id number] Care Team Providers Care Curtain Feller Blindstitch Name Role Phone Jeff Strickland MD Primary Care Provider Chan Nicholas MD Unavailable [phone] Alan Mccall MD Unavailable [phone] Pepito Haro MD PhD Unavailable Solange Guido MD Unavailable Dialysis Access Sites [...] day with meals 06/27/19 21 Active vit C,S-Ik-zdbix-lutein- zeaxan 250-90-40-1 mg capsule Take 1 capsule [...] day as needed (nasal irrigation) Active FA-vit Czpdq-M-qgfl-vitamin D3 (Dialyvite 800-Ultra D) 0.8-2,000 mg-unit tablet [...] warrant further PDT. - Patient returned to [facility] for ongoing care and follow up Assessment & Plan (03/09/2024 6:25 PM LICENSED PHYSICAL THERAPY ASSISTANT): Vision OD trends mild improvement, though still [...] We discussed that genetic results would not job change crew member. Given we have exhausted available treatment without [...] 2 weeks and have patient return to [facility] retina in 4 weeks for repeat [...] 03/26/2021 Assessment & Plan (03/26/2021 1:17 PM LICENSED PHYSICAL THERAPY ASSISTANT): Enlarged mild sella turcica on a routine [...] units Assessment & Plan (03/26/2021 1:17 PM LICENSED PHYSICAL THERAPY ASSISTANT): Chronic, uncontrolled, improving A1c today 7.7 % [...] WNL Assessment & Plan (03/26/2021 1:16 PM LICENSED PHYSICAL THERAPY ASSISTANT): Pt currently on Levothyroxine 112 mcg oral [...] 11/18/2018 Assessment & Plan (01/21/2019 2:02 PM LICENSED PHYSICAL THERAPY ASSISTANT): Symptomatic. Will request for esophageal manometry. Continue [...] well Assessment & Plan (03/26/2021 1:16 PM LICENSED PHYSICAL THERAPY ASSISTANT): On statin therapy Tolerating well Last lipid [...] nephrectomy. 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 [id number] Immunizations Name Administration Dates Next Due Hep [...] = 0.6 oz pur e alcohol) rarely [employer] Answer Date Recorded In the past 12 months has [employer], gas, oil, or water [employer] threatened to shut off services in your [...] week 03/25/2023 How often do you attend [facility] or christianity services? Never 03/25/2023 Do you belong to any clubs o r organizations such as anabaptism groups, unions, fraternal or athletic groups, or [...] place to sleep or slept in a fdc (including now)? 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 Sex Male 2:23 AM LICENSED PHYSICAL THERAPY ASSISTANT Gender Identity Not on file Sexual Orientation [...] (ABNORMAL) eGFR (08/11/2023 7:50 PM CDT) Pathologist [facility] eGFR 5(L) >=60 mL/min/1. 73 m2 Comment: [...] was last reviewed 2020. Testing performed by: [facility], [address] [place] [address], [place]., [address] Blood 08/11/2023 7:50 PM CDT 08/11/2023 8:05 PM CDT us Leni Cervantes MD LAB BLOOD ORDERABLES Kenna haider Result [facility] [address] [facility] Department [place] [address] * (ABNORMAL) Lipid panel (11/30/2022 12:32 AM CDT) Pathologist [facility] Cholesterol 209(H) 30 - 199 mg/dL Comment: [...] revised on 2017. HDL 26(L) >=40 mg/dL [facility] Comment: Interpretive Data Ages < or = [...] on 2017. LDL, calculated See Comment <=129 [facility] Comment: Unable to calculate LDL due to [...] on 2017. Non-HDL Cholesterol 183 mg/dL [facility] Comment: Interpretive Data Ages < or [...] III, MD LAB BLOOD ORDERABLES Final Result [facility] Department [place] [address] from Last 3 Months or Most Recently Relevant to Health Maintenance
--- OUTSIDE RECORDS SUMMARY | 2024-03-13 16:14 | XMS_ITS ---
Author Organization [facility] Address [facility] [place] [address] Care Team Providers Care International Organizer Name Role Phone Jeff Strickland MD Primary Care Provider Chan Nicholas MD Unavailable [phone] Alan Mccall MD Unavailable [phone] Pepito Haro MD PhD Unavailable Solange Guido MD Unavailable [phone] Active Problems Problem Noted Date Diagnosed Date [...] warrant further PDT. - Patient returned to [facility] for ongoing care and follow up Assessment & Plan (03/09/2024 6:25 PM LEAD ANDROID DEVELOPER): Vision OD trends mild improvement, though still [...] We discussed that genetic results would not exchange architect. Given we have exhausted available treatment without VA improvement, and CME is improving spontaneously, patient can follow in [facility]. Assessment & Plan (10/08/2023 2:51 PM [...] 2 weeks and have patient return to [facility] retina in 4 weeks for repeat DFEx [...] renal disease on peritoneal dialysis ( [facility]) 04/24/2023 Hypertensive renal failure 04/24/2023 Secondary [...] 03/26/2021 Assessment & Plan (03/26/2021 1:17 PM LEAD ANDROID DEVELOPER): Enlarged mild sella turcica on a routine [...] units Assessment & Plan (03/26/2021 1:17 PM LEAD ANDROID DEVELOPER): Chronic, uncontrolled, improving A1c today 7.7 % [...] WNL Assessment & Plan (03/26/2021 1:16 PM LEAD ANDROID DEVELOPER): Pt currently on Levothyroxine 112 mcg oral [...] 11/18/2018 Assessment & Plan (01/21/2019 2:02 PM LEAD ANDROID DEVELOPER): Symptomatic. Will request for esophageal manometry. Continue [...] Chronic diastolic CHF (congestive heart failure) ([facility]) 05/18/2018 SHABNAM on CPAP 05/18/2018 Obesity (BMI 30-39.9) 05/18/2018 Stage 5 chronic kidney disease (CMS/HCC) 019 Hyperlipidemia associated with type 2 diabetes eboni gonzalez 12/03/2017 Assessment & Plan (10/30/2021 8:35 PM CDT): On statin therapy Tolerating well Assessment & Plan (03/26/2021 1:16 PM LEAD ANDROID DEVELOPER): On statin therapy Tolerating well Last lipid [...] nephrectomy. 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 [id number] Current Oncology Plans No current plan information found. Past Plans No past plan information found. Radiation Treatments * No radiation treatments are documented for this patient in [facility]. Treatments may have been administered in another [...] not included. Kendall Vaughn Meseret 1955 Referring Backshoe Person: Alan Mccall Dialysis Info: NOD GFR 13 Type: Time: (Not currently on dialysis) days Blood Type: O NEG Body mass index is 37.36 kg/m??. ALERTS Maintenance Construction Helper: needs to establish Past Medical History: Diagnosis Date ? ? Arthropathy RA. Dr Strickland manages. ? ? CHF (congestive heart failure) [address] Becerra in [place]. ? ? CKD (chronic kidney disease), stage V ? ? Community acquired pneumonia 2018 [facility] hospitalized. ? ? Diabetes mellitus 20 years. Lantus pen. ? ? Esophageal reflux takes med ? ? Hypercholesteremia 5-10 yrs meds ? ? Hypertension takes meds ? ? Hypothyroidism meds 20 years ? ? Kidney stones 5-6 years ago had 2 in the same year. ? ? Malignancy right kidney 2012 ? ? Obstructive sleep apnea 3 years. [facility]. Cannont remember doctors name ? ? Renal cell carcinoma [address] [place] Pruett surgeon. followed up every 6 [...] file Gets together: Not on file Attends methodist service: Not on file Active member of [...] It is the impression of this social welfare clerk that Kendall Carl has several positive factors for Kidney transplant candidacy from a psychosocial perspective. Patient appears to have appropriate knowledge of illness. Patient has sufficient insurance coverage and stable financial situation for post transplant needs. No concerns regarding substance abuse, legal issues, or mental health needs. Patient has adequate support system and appropriate discharge plan. ?? Plan: first calender worker to provide supportive services as needed. Patient appears to be a reasonable candidate for transplant from a psychosocial perspective. ?? -Post transplant arrangement forms are needed prior to being listed. -Updated toxicology results needed, per protocol Psychiatric Consult Recommended: No ?? Transplant Motion Picture Photographer: Joy Tam LCSW ?? RD: 11/09/2019 ?? [...] use my fitness pal or my food success coach) - Consume no more than 2000 calories a day ?? E-mailed pt's a 2000 calorie, CKD meal plan. Items Still Pending: Clinic, colonoscopy Acute pain of left shoulder 01/25/2019 03/25/2023 Non-cardiac chest pain 11/18/201803/25 Assessment & Plan (01/21/2019 2:02 PM LEAD ANDROID DEVELOPER): The pain is persistent. The patient described [...] has had extensive cardiac workup by the information resources manager including coronary angiogram. He has chest [...] to type 2 di abetes mellitus ([facility]) 05/18/2018 03/25/2023 CKD stage 4 secondary to hyp ertension ([facility]) 05/18/2018 03/25/2023 Poor diet 05/18/2018 03/25/2023 Dizziness 05/18/2018 03/25/2023 Type 2 diabetes mellitus wit hout complication ([facility]) 12/03/2017 03/25/2023 Kidney disease 08/06/2017 03/25/2023 Obstructive sleep apnea 10/22/2016 0207/2023
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
--- OUTSIDE RECORDS SUMMARY | 2024-03-13 16:14 | XMS_ITS | Encounter Summary ---
Author Organization [facility] Address [facility] [place] [address] Care Team Providers Care Necktie Maker Name Role Phone Deandre Bojorquez MD Unavailable [phone] Jeff Strickland MD Primary Care Provider [phone] Encounter Details Date Type Department Care Team (Late st Contact Info) Description 11/21/2023 Lab Requisition [facility] MAIN [facility] [address] [place] [id number] Alan Davenport MD [facility] [place] [address] Social History Tobacco Use Types Packs/Day Years [...] Info) Description 08/04/2024 11:30 AM CDT Appointment [facility] MRI [address] [place] [address] Thomas Mendoza MD [address] [facility] 2L [place] [phone] 08/04/2024 1:30 PM CDT Office Visit [facility] - Urology [address] [place] [address] Thomas Mendoza MD [address] [facility] 2L [place] [phone] documented as of this encounter Procedures Procedure Name Priority Date/Time Associated Diagnosis Comments HOLD HLA SPECIMEN Routine 11/18/2023 12: 16 PM CDT documented in this encounter Results * HOLD HLA SPECIMEN (11/18/2023 12:16 PM CDT) Hold HLA Specimen 11/21/2023 1:31 PM CDT [facility]) Comment:The Hold HLA specime n has been received into the lab and will be held for 5 years at 4 degrees. Blood BLOOD SPECIMEN / Unknown 11/18/2023 12:16 PM CDT 11/21/2023 12:17 PM CDT Alan Davenport MD LAB - BLOOD BANK ORD ERABLES [facility] ([facility] [address] [place] [address], [facility] documented in this encounter Visit Diagnoses Not on filedocumented in this encounter Care Teams Necktie Maker Relationship Specialty Start Date End Date Jeff Strickland MD [address] [place] [address] PCP - General 03/05/18 [place] [address] [address] Orthopedic Surgery 03/28/17 documented as of this encounter
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
--- OUTSIDE RECORDS SUMMARY | 2024-03-13 16:14 | XMS_ITS | Encounter Summary ---
Author Organization [facility] Address [facility] [facility] [place] [address] Care Team Providers Care Signal Supervisor Name Role Phone Deandre Bojorquez MD Unavailable [phone] Jeff Strickland MD Primary Care Provider [phone] Encounter Details Date Type Department Care Team (Late st Contact Info) Description 02/04/2024 Lab Requisition [facility] MA[facility] [address] [place] [phone] Alan Davenport MD [facility] OF [place] [address] Social History Tobacco Use Types Packs/Day Years [...] Info) Description 08/04/2024 11:30 AM CDT Appointment [facility] MRI [address] [place] [address] Thomas Mendoza MD [address] [facility] 2L [place] [phone] 08/04/2024 1:30 PM CDT Office Visit [facility] - Urology [address] [place] [address] Thomas Mendoza MD [address] [facility] 2L [place] [phone] documented as of this encounter Procedures Procedure Name Priority Date/Time Associated Diagnosis Comments HOLD HLA SPECIMEN Routine 01/27/2024 3:2 3 PM FOLDED CLOTH TAPER documented in this encounter Results * HOLD HLA SPECIMEN (01/27/2024 3:23 PM FOLDED CLOTH TAPER) Hold HLA Specimen 02/04/2024 4:31 PM FOLDED CLOTH TAPER [facility] ([facility]) Comment:The Hold HLA specime n has been received into the lab and will be held for 5 years at 4 degrees. Blood BLOOD SPECIMEN / Unknown 01/27/2024 3:23 PM FOLDED CLOTH TAPER 02/04/2024 3:23 PM FOLDED CLOTH TAPER Alan Davenport MD LAB - BLOOD BANK ORD ERABLES [facility] ([employer]) [address] documented in this encounter Visit Diagnoses Not on filedocumented in this encounter Care Teams Signal Supervisor Relationship Specialty Start Date End Date Jeff Stricklnad MD [address] [place] [address] PCP - General 03/05/18 [place] [address] [facility] [address] [place] [address] Orthopedic Surgery 03/28/17 documented as of this encounter
--- OUTSIDE RECORDS SUMMARY | 2024-03-13 16:14 | XMS_ITS | Encounter Summary ---
Author Organization [facility] Address [facility] [place] [address] Care Team Providers Care Preschool Teacher Assistant Name Role Phone Deandre Bojorquez MD Unavailable [phone] Jeff Strickland MD Primary Care Provider [phone] Encounter Details Date Type Department Care Team (Late st Contact Info) Description 10/28/2023 Lab Requisition [facility] MAIN LAB [address] [place] [phone] Alan Davenport MD [facility] OF [place] [address] Social History Tobacco Use Types Packs/Day Years [...] Info) Description 08/04/2024 11:30 AM CDT Appointment [facility] MRI [address] [place] [address] Thomas Mendoza MD [address] [facility] 2L [place] [phone] 08/04/2024 1:30 PM CDT Office Visit [facility] Physician Group - Urology [address] [place] [address] Thomas Mendoza MD [address] [facility] 2L [place] [phone] documented as of this encounter Procedures Procedure Name Priority Date/Time Associated Diagnosis Comments HOLD HLA SPECIMEN Routine 10/22/2023 3:5 0 PM CDT documented in this encounter Results * HOLD HLA SPECIMEN (10/22/2023 3:50 PM CDT) Hold HLA Specimen 10/28/2023 5:00 PM CDT [facility] Comment:The Hold HLA specime n has been received into the lab and will be held for 5 years at 4 degrees. Blood BLOOD SPECIMEN / Unknown 10/22/2023 3:50 PM CDT 10/28/2023 3:50 PM CDT Alan Davenport MD LAB - BLOOD BANK ORD ERABLES [facility] ([facility]) [address] [place], [place] [id number] [place] [address] documented in this encounter Visit Diagnoses Not on filedocumented in this encounter Care Teams Preschool Teacher Assistant Relationship Specialty Start Date End Date Jeff Strickland MD [address] [place] [address] PCP - General 03/05/18 [place] [address] [address] Orthopedic Surgery 03/28/17 documented as of this encounter
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
--- OUTSIDE RECORDS SUMMARY | 2024-03-13 16:15 | XMS_ITS | CONTINUITY OF CARE DOCUMENT ---
Author Name sally zavala Address Unknown Organization [facility] Address [address] [place] [address] Phone [phone] Care Team Providers Care Automotive Machinist Name Role Phone Jason Becerra MD Unavailable [phone] DONNIE WOOD MD Unavailable [phone] DONNIE WOOD MD Unavailable PROBLEMS Condition [...] Diag nosis - In-person encounter Office Visit Jason Becerra MD [facility] - In-person encounter Office Visit Jason Becerra MD [facility] Fatigue - In-person encounter Office Visit Jason Becerra MD [facility] Chest pain-type to be determined - In-person encounter Office Visit Jason Becerra MD [facility] Office - In-person encounter Office Visit Jason Becerra MD [facility] Cardiology examinationDiabetes, Type 2HyperlipidemiaHypertens ionDiastolic heart [...] LinkLogic 3.5-5.2 sodium, serum 141 mmol/L LinkLogic [id number] 9852/09/26 urea nitrogen/creatini ne ratio, serum 19 LinkLogic [...] ORAL TABLET active TAke 1 tablet daily Aym Montemayor #180, 90 days supply, Prescribed by [...] Statu s: Monica oropeza: 2 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 Jason Becerra MD social history reviewed E&M revi ewed - no changes required Jason Becerra MD smoking status Never smoker Amy doan FAMILY HISTORY Family Member Condition First Degree Blood Relative No Known Fam steven History INSURANCE PROVIDERS Payer name Policy type / Coverage type [place] [employer] party ID AETNA CHOICE POS II Commercial insurance company [id number] ADVANCE DIRECTIVES Name Date POWER OF MENTAL HEALTH ADVANCED PRACTICE NURSE TREATMENT PLAN Date Name Performer Cardiology follow [...] BASIC METABOLIC PANE L W/EGFR DLCO - 49341 FRC - 45851 FVC - 50558 HISTORY OF PROCEDURES Procedure Date Procedure Name Provider Procedure Notes S tatus EKG Jason Becerra MD complete d Regadenoson, 4 units Jason Becerra MD completed Cardiolite, 2 units Jason Becerra MD completed SPECT Images Jason Becerra MD comple wendy Stress EKG Jason Becerra MD complete d FVC / MVV - 82029 Jason Becerra MD c ompleted BLOOD COUNT HEMOGLOBIN Jason Becerra MD completed FRC - 12979 Jason Becerra MD complet ed SpO2 w/o 6min walk/titration Jason Becerra MD completed DLCO - 00994 Jason nguyen DEMETRIS Becerra MD complete d
--- OUTSIDE RECORDS SUMMARY | 2024-03-13 16:15 | XMS_ITS | Clinical Summary ---
Author Organization [facility] Address [address], [place] [address] Phone Care Team Providers Care Art Installer Name Role Phone Jeff Strickland MD Primary Care Provider [phone] Allergies No known active allergies Medications Medication [...] tablet 3 11/29/2019 Active Continuous Blood Gluc Director Pharmacovigilance (FreeStyle Em [place]) device 1 each daily 12/01/2019 Active Continuous Blood Gluc Sensor (FreeStyle Em Sensor System) misc 1 each once every 2 weeks 12/01/2019 Active Lancets (OneTouch Delica Plus [id number]) misc OneTouch Delica Plus Lancet 33 gauge [...] Patient encounter status 11/10/2019 Overview (12/17/2019): Kendall Carl 1955 Referring Bending Frame Operator: Alan Mccall Dialysis Info: NOD GFR 13 Type: Time: (Not currently on dialysis) days Blood Type: O NEG Body mass index is 37.36 kg/m??. ALERTS Wrapper And Preserver: needs to establish Past Medical History: Diagnosis Date ? ? Arthropathy RA. Dr Strickland manages. ? ? CHF (congestive heart failure) 2 yrs ago Applications Systems Analyst is Dr. Becerra in [place]. ? ? CKD (chronic kidney disease), stage V ? ? Community acquired pneumonia [address] [facility] hospitalized. ? ? Diabetes mellitus 20 years. Lantus pen. ? ? Esophageal reflux takes med ? ? Hypercholesteremia 5-10 yrs meds ? ? Hypertension takes meds ? ? Hypothyroidism meds 20 years ? ? Kidney stones 5-6 years ago had 2 in the same year. ? ? Malignancy right kidney 2012 ? ? Obstructive sleep apnea 3 years. [facility]. Canndwain remember doctors name ? ? [...] file Gets together: Not on file Attends congregational service: Not on file Active member of [...] Impression: It is the impression of this geriatric social work professor that Kendall Carl has several positive factors for Kidney transplant candidacy from a psychosocial perspective. Patient appears to have appropriate knowledge of illness. Patient has sufficient insurance coverage and stable financial situation for post transplant needs. No concerns regarding substance abuse, legal issues, or mental health needs. Patient has adequate support system and appropriate discharge plan. ?? Plan: political worker to provide supportive services as needed. Patient appears to be a reasonable candidate for transplant from a psychosocial perspective. ?? -Post transplant arrangement forms are needed prior to being listed. -Updated toxicology results needed, per protocol Psychiatric Consult Recommended: No ?? Transplant Manager Commission: Joy Tam LCSW ?? RD: 11/09/2019 ?? [...] my fitness pal or my food assistant women's rowing coach) - Consume no more than 2000 [...] nephrectomy. 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 [id number] Immunizations Name Administration Dates Next Due Influenza [...] (#1) 2023 9, 04/10/2016, 04/09/2016 Care Teams Art Installer Relationship Specialty Start Date End Date Jeff Strickland MD [address] [facility] [address] [place] [address] PCP - General Internal Medicine 07/15/18
--- OUTSIDE RECORDS SUMMARY | 2024-03-13 16:15 | XMS_ITS | Continuity of Care Document ---
Author Organization [facility] Address [address] [place] [address] Phone Care Team Providers Care Design Tech Name Role Phone Kee Rodriguez Unavailable Unavailable Procedures Procedure Date Office/outpatient Visit, Est Eye Exam Established Pt Advance Directives Directive Yes / No Effective Date File Name No Information Encounters Encounter Description Practice Location Reason(s) For Visit Diagnoses Date Provider Providers Copied on Encounter Office/outpat ient Visit, Est [facility], [address] [place] [address] [address], [place], [place], [id number], tel:[phone] SEC [facility] No Information Mar-0 2-201 0 Krishnasamy Kee. [address] [place] [address], [place], [place], [facility], [place]. tel:[phone] [facility], [address] [place] [address] [address], [place], [place], [address], tel:[phone] SEC [facility] No Information Nhan-3 0-200 7 David OD Freddy. [address], [place], [place], [facility], [place]. tel:[phone] Family History Family Member Type Diagnosis Age [...]
--- OUTSIDE RECORDS SUMMARY | 2024-03-13 16:15 | XMS_ITS | Encounter Summary ---
Author Organization [facility] Address [facility] [place] [address] Care Team Providers Care Loss Prevention Analyst Name Role Phone Deandre Bojorquez MD Unavailable [phone] Jeff Strickland MD Primary Care Provider [phone] Encounter Details Date Type Department Care Team (Late st Contact Info) Description 04/10/2023 Lab Requisition [facility] [address] [place] [id number] Alan Davenport MD [facility] [place] [address] Social History Tobacco Use Types Packs/Day Years [...] Info) Description 08/04/2024 11:30 AM CDT Appointment [facility] MRI [address] [place] [address] Thomas Mendoza MD [address] [facility] 2L [place] [address] 08/04/2024 1:30 PM CDT Office Visit [facility] - Urology [address] [place] [address] Thomas Mendoza MD [address] [facility] 2L [place] [address] documented as of this encounter Procedures Procedure Name Priority Date/Time Associated Diagnosis Comments HOLD HLA SPECIMEN Routine 04/02/2023 3:0 1 PM DISH CARRIER documented in this encounter Results * HOLD HLA SPECIMEN (04/02/2023 3:01 PM DISH CARRIER) Hold HLA Specimen 04/10/2023 4:01 PM DISH CARRIER [facility] ([facility]) Comment:The Hold HLA specime n has been received into the lab and will be held for 5 years at 4 degrees. Blood BLOOD SPECIMEN / Unknown 04/02/2023 3:01 PM DISH CARRIER 04/10/2023 3:01 PM DISH CARRIER Alan Davenport MD LAB - BLOOD BANK ORD ERABLES [facility] ([employer]) [address] documented in this encounter Visit Diagnoses Not on filedocumented in this encounter Care Teams Loss Prevention Analyst Relationship Specialty Start Date End Date Jeff Strickland MD [address] [place] [address] PCP - General 03/05/18 [place] [address] [facility] [address] [place] [address] Orthopedic Surgery 03/28/17 documented as of this encounter
--- OUTSIDE RECORDS SUMMARY | 2024-03-13 16:15 | XMS_ITS | Encounter Summary ---
Author Organization [facility] Address [facility] [facility] [place] [address] Care Team Providers Care Vrt Mechanic Name Role Phone Deandre Bojorquez MD Unavailable [phone] Jeff Strickland MD Primary Care Provider [phone] Encounter Details Date Type Department Care Team (Late st Contact Info) Description 05/29/2023 Lab Requisition [facility] [address] [place] [id number] Alan Davenport MD [facility] [place] [address] Social History Tobacco Use Types Packs/Day Years [...] Info) Description 08/04/2024 11:30 AM CDT Appointment [facility] MRI [address] [place] [address] Thomas Mendoza MD [address] [facility] 2L [place] [address] 08/04/2024 1:30 PM CDT Office Visit [facility] - Urology [address] [place] [address] Thomas Mendoza MD [address] [facility] 2L [place] [address] documented as of this encounter Procedures Procedure Name Priority Date/Time Associated Diagnosis Comments HOLD HLA SPECIMEN Routine 05/21/2023 9:2 4 AM CDT documented in this encounter Results * HOLD HLA SPECIMEN (05/21/2023 9:24 AM CDT) Hold HLA Specimen 05/29/2023 10:30 AM CDT [facility] ([employer] [facility]) Comment:The Hold HLA specime n has been received into the lab and will be held for 5 years at 4 degrees. Blood BLOOD SPECIMEN / Unknown 05/21/2023 9:24 AM CDT 05/29/2023 9:24 AM CDT Alan Davenport MD LAB - BLOOD BANK ORD ERABLES [facility] ([employer]) [address] [place], [place] [address] [place] [address] documented in this encounter Visit Diagnoses Not on filedocumented in this encounter Care Teams Vrt Mechanic Relationship Specialty Start Date End Date Jeff Strickland MD [address] [place] [address] PCP - General 03/05/18 [place] [address] [address] Orthopedic Surgery 03/28/17 documented as of this encounter
--- OUTSIDE RECORDS SUMMARY | 2024-03-13 16:15 | XMS_ITS | Encounter Summary ---
Author Organization [facility] Address [facility] [place] [address] Care Team Providers Care Chief Load Dispatcher Name Role Phone Deandre Bojorquez MD Unavailable [phone] Jeff Strickland MD Primary Care Provider [phone] Encounter Details Date Type Department Care Team (Late st Contact Info) Description 02/07/2023 Lab Requisition [facility] [address] [place] [phone] Alan Davenport MD [facility]1 [facility] [place] [address] Social History Tobacco Use Types Packs/Day Years [...] Info) Description 08/04/2024 11:30 AM CDT Appointment [facility] MRI [address] [place] [address] Thomas Mendoza MD [address] [facility] 2L [place] [phone] 08/04/2024 1:30 PM CDT Office Visit [facility] - Urology [address] [place] [address] Thomas Mendoza MD [address] [facility] 2L [place] [address] documented as of this encounter Procedures Procedure Name Priority Date/Time Associated Diagnosis Comments HOLD HLA SPECIMEN Routine 2023 7:5 8 AM RETAIL ASSISTANT MANAGER documented in this encounter Results * HOLD HLA SPECIMEN (2023 7:58 AM RETAIL ASSISTANT MANAGER) Hold HLA Specimen 02/07/2023 9:01 AM RETAIL ASSISTANT MANAGER [facility] ([facility]) Comment:The Hold HLA specime n has been received into the lab and will be held for 5 years at 4 degrees. Blood BLOOD SPECIMEN / Unknown 2023 7:58 AM RETAIL ASSISTANT MANAGER 02/07/2023 7:59 AM RETAIL ASSISTANT MANAGER Alan Davenport MD LAB - BLOOD BANK ORD ERABLES [facility] ([facility]) [address] documented in this encounter Visit Diagnoses Not on filedocumented in this encounter Care Teams Chief Load Dispatcher Relationship Specialty Start Date End Date Jeff Strickland MD [address] [place] [address] PCP - General 03/05/18 [place] [address] [facility] [address] [place] [address] Orthopedic Surgery 03/28/17 documented as of this encounter
--- OUTSIDE RECORDS SUMMARY | 2024-03-13 16:15 | XMS_ITS | Encounter Summary ---
Author Organization [facility] Address [facility]3 [facility] [place] [address] Care Team Providers Care Director Of Business Operations Name Role Phone Deandre Bojorquez MD Unavailable [phone] Jeff Strickland MD Primary Care Provider [phone] Encounter Details Date Type Department Care Team (Late st Contact Info) Description 03/12/2024 Lab Requisition [facility] [address] [place] [phone] Alan Davenport MD [facility] [place] [address] Social History Tobacco Use Types Packs/Day Years [...] Info) Description 08/04/2024 11:30 AM CDT Appointment [facility] MRI [address] [place] [address] Thomas Mendoza MD [address] [facility] 2L DIV [place]OLOGIC [place] [phone] 08/04/2024 1:30 PM CDT Office Visit [facility] - Urology [address] [place] [address] Thomas Mendoza MD [address] [facility] 2L DIV [place]OLOGIC [place] [phone] documented as of this encounter Procedures Procedure Name Priority Date/Time Associated Diagnosis Comments HOLD HLA SPECIMEN Routine 03/05/2024 1:4 0 PM PESTICIDE USE MEDICAL COORDINATOR documented in this encounter Results * HOLD HLA SPECIMEN (03/05/2024 1:40 PM PESTICIDE USE MEDICAL COORDINATOR) Hold HLA Specimen 03/12/2024 3:00 PM PESTICIDE USE MEDICAL COORDINATOR [facility] ([facility]) Comment:The Hold HLA specime n has been received into the lab and will be held for 5 years at 4 degrees. Blood BLOOD SPECIMEN / Unknown 03/05/2024 1:40 PM PESTICIDE USE MEDICAL COORDINATOR 03/12/2024 1:40 PM PESTICIDE USE MEDICAL COORDINATOR Alan Davenport MD LAB - BLOOD BANK ORD ERABLES [facility] ([employer]) [address] documented in this encounter Visit Diagnoses Not on filedocumented in this encounter Care Teams Director Of Business Operations Relationship Specialty Start Date End Date Jeff Strickland MD [address] [place] [address] PCP - General 03/05/18 [place] [address] [facility] [address] [place] [address] Orthopedic Surgery 03/28/17 documented as of this encounter
--- OUTSIDE RECORDS SUMMARY | 2024-03-13 16:15 | XMS_ITS | Clinical Summary ---
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 Active Vit C-Vit S-Vovmns-TxNk-L utein (PRESERVISION) 226 mg-200 unit -5 mg-0.8 [...] Department Care Team Description 03/03/2024 2:05 PM PUMPER HEAD Ancillary Procedure [facility] [address] [place] [address] Sergio Rivera MD Pain in [...] Comments Blood Pressure 167/77 02/04/2019 9:16 AM PUMPER HEAD Pulse 64 02/04/2019 9:16 AM PUMPER HEAD Temperature 36.5 ??C (97.7 ??F) 02/04/2019 9:16 AM CS T Respiratory Rate 16 02/04/2019 9:16 AM PUMPER HEAD Oxygen Saturation 97% 02/04/2019 9:16 AM PUMPER HEAD Inhaled Oxygen Concentration - - Weight 113.4 kg (250 lb) 02/04/2019 9:16 AM PUMPER HEAD Height 175.3 cm (5' 9 ) 02/04/2019 9:16 AM PUMPER HEAD Body Mass Index 36.92 02/04/2019 9:16 AM PUMPER HEAD Plan of Treatment Health Maintenance Due Date [...] 2+ VW BILAT Routine 03/03/2024 2:26 PM PUMPER HEAD Pain in shoulder region, left Pain in shoulder region, right from Last 3 Months Results * XR SHOULDER 2+ VW BILAT (03/03/2024 2:26 PM PUMPER HEAD) Anatomical Region Laterality Modality Upper Extremity Computed Radiogr aphy 03/03/2024 2:27 PM PUMPER HEAD Impressions 03/03/2024 2:34 PM PUMPER HEAD IMPRESSION: ?? 1. 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 Narrative 03/03/2024 2:34 PM PUMPER HEAD EXAM: XR SHOULDER 2+ VW BILAT DATE: [...] BCBS BLUE ACCESS/TRUE BLUE PPO Care Teams Propagator Relationship Specialty Start Date End Date Jeff Strickland MD [address] [facility] [address] [place] [phone] PCP - General Family Practice 01/01/19
--- OUTSIDE RECORDS SUMMARY | 2024-03-13 16:15 | XMS_ITS | Patient Health Summary ---
Author Organization [facility] Address [address] [place] [address] Care Team Providers Care Fire Control Mechanic Name Role Phone Deandre Bojorquez MD Unavailable [phone] Jeff Strickland MD Primary Care Provider [phone] Note from [facility],non-owned Affiliates and Associated Physician Practices is amultiple site organization consisting of ambulatory clinics and hospital sitesin [place], [place] and [place]. This disclosure is being madepursuant to the Care Everywhere program and may not contain all information available regarding this patient. Last updated 17.[facility] Allergies * Oxycodone(Psychiatric) -Medium Criticality [...] daily 3 refills by 01/07/2025 * B Bmriixp-J-Zwpak Acid (Dialyvite 800) 0.8 MG 1 tablet Orally Once a day for 30 day(s) Ended Medications* minoxidil (LONITEN) 2.5 MG tablet(Started 07/19/2019) (Discontinued) Take 1 (one) tablet by mouth 2 times daily * Continuous Blood Gluc Pigment Making Supervisor (FREESTYLE VIKRAM READER) KERON(Started 12/01/2019)(Discontinued) Use 1 [...] Type 2 diabetes mellitus 12/04/2020 CAD in [place] artery 08/04/2020 Pre-transplant evaluation for kidney transplant [...] Comments Blood Pressure 134/74 03/03/2024 12:47 PM CLINICAL LAB CLERK Pulse 65 03/03/2024 12:47 PM CLINICAL LAB CLERK Temperature 36.2 ??C (97.2 ??F) 08/06/2023 1:56 PM CD T Respiratory Rate 18 01/14/2022 1:01 PM CLINICAL LAB CLERK Oxygen Saturation 96% 03/03/2024 12:47 PM CLINICAL LAB CLERK Inhaled Oxygen Concentration - - Weight 119.7 kg (264 lb) 03/03/2024 12:47 PM CLINICAL LAB CLERK Height 172.7 cm (5' 8 ) 03/03/2024 12:47 PM CLINICAL LAB CLERK Body Mass Index 40.14 03/03/2024 12:47 PM CLINICAL LAB CLERK Medical Devices Implanted Type Area Propeller Mechanic Device Identifier Shelf Expiration Date Model / Serial / Lot Sys Cor Stent Xience Srr 3mm 18mm Rap Ex Implanted:Qty: 1 on 08/04/2020 by Javier Lan MD at [facility] Stent [employer]ary [employer] 06/19/2022 [id number] Description:STENT Sys Cor Stent Xience Srr 3mm 8mm Rap Ex Implanted:Qty: 1 on 08/04/2020 by Javier Lan MD at [facility] [employer] 09/03/2021 [id number] Description:stent Procedures * HOLD HLA SPECIMEN(Performed 03/05/2024) [...] unspecified vessel or lesion type, unspecified whether [place] or transplanted heart (HCC), Congestive heart failure, unspecified HF chronicity, unspecified heart failure type (HCC), Type 2 diabetes mellitus with chronic kidney disease on chronic dialysis, without long-term current use of insulin (HCC), Hypertension, unspecified type * STRESS TEST(Performed 11/06/2022) Performed for Pre-kidney transplant, listed, Coronary artery disease with angina pectoris, unspecified vessel or lesion type, unspecified whether [place] or transplanted heart (HCC), Congestive heart failure, unspecified HF chronicity, unspecified heart failure type (HCC), Type 2 diabetes mellitus with chronic kidney disease on chronic dialysis, without long-term current use of insulin (HCC), Hypertension, unspecified type * ECHO COMPLETE(Performed 11/06/2022) Performed for Pre-kidney transplant, listed, Coronary artery disease with angina pectoris, unspecified vessel or lesion type, unspecified whether [place] or transplanted heart (HCC), Congestive heart failure, [...] 11/07/2021) Performed for Coronary artery disease involving [place] coronary artery of [place] heart without angina pectoris * IR CENTRAL [...] 08/04/2020) Performed for Coronary artery disease involving [place] coronary artery of [place] heart with angina pectoris (HCC), Pre-transplant evaluation [...] 06/15/2020) Performed for Coronary artery disease involving [place] coronary artery of [place] heart without angina pectoris * LIPID PROFILE(Performed 06/15/2020) Performed for Coronary artery disease involving [place] coronary artery of [place] heart without angina pectoris * CT KIDNEYS [...] * HOLD HLA SPECIMEN (03/05/2024 1:40 PM CLINICAL LAB CLERK) Only the most recent of9 resultswithin the time period is included. [facility] Hold HLA Specimen 03/12/2024 3:00 PM CLINICAL LAB CLERK [facility] ([facility]) Comment:The Hold HLA specime n has been received into the lab and will be held for 5 years at 4 degrees. Blood BLOOD SPECIMEN / Unknown 03/05/2024 1:40 PM CLINICAL LAB CLERK 03/12/2024 1:40 PM CLINICAL LAB CLERK Alan Davenport MD LAB - BLOOD BANK ORD ERABLES [facility] ([facility]) [address], [place] [address] * EKG 12-LEAD (10/14/2023 11:24 AM CDT) Ventricular Rate 53 BPM [facility] Atrial Rate 53 BPM [facility] P-R Interval 170 ms [facility] QRS Duration ms 96 ms [facility] Q-T Interval ms 534 ms [facility] QTC Calculation (Bezet) 501 ms [facility] Calculated P [place] 20 degrees [facility] Calculated R [place] -50 degrees [facility] Calculated T [place] -32 degrees [facility] Interpretation EKG SINUS BRADYCARDIA INCOMPLETE RIGHT BUNDLE BRANCH BLOCK LEFT ANTERIOR FASCICULAR BLOCK SEPTAL INFARCT , AGE UNDETERMINED PROLONGED QT ABNORMAL ECG NO PREVIOUS ECGS AVAILABLE Confirmed by SHANELL CAICEDO MD ([id number]) on 10/16/2023 10:56:56 AM [facility] 10/14/2023 11:2 4 AM CDT 10/16/2023 10:56 AM CDT Letha Christine CERTIFIED ANESTHESIOLOGIST ASSISTANT-CHEMICAL EDUCATOR ECG ORDERABLES [facility] * MRI ABDOMEN [...] - 1.20 mg/dL 07/17/2023 10:59 AM CDT [facility] eGFR 16(L) >=90 mL/min/1.7 3 m2 07/17/2023 10:59 AM CDT [facility] Blood BLOOD SPECIMEN / Unknown 07/17/2023 10:44 AM CDT 07/17/2023 10:59 AM CDT Martinez Sandhu MD LAB - POINT OF CARE ORDERABLES [facility] [address] [place], [place] [id number] * US RETROPERITONEAL COMPLETE (05/21/2023 12:05 PM [...] component. Report dictated by Romel Hendricks MD, (vice president of nursing). > Dictated by Romel Hendricks MD (Lamination Operator) 05/21/2023 11:22 AM ILizandro MD have personally reviewed and interpreted this examination/study. > Interpreting Provider: Lizandro Diaz MD on 05/21/2023 12:34 PM Narrative 05/21/2023 12:34 PM CDT PROCEDURE: ??US RETROPERITONEAL COMPLETE, DATE/TIME OF EXAM: ??05/21/2023 12:05 PM, LOCATION ??[facility] INDICATION: Z76.82: Pre-kidney transplant, listed Q61.02: Multiple [...] COMPLETE, DATE/TIME OF EXAM: 2:05 PM, LOCATION [facility] INDICATION: Z76.82: Pre-kidney transplant, listed Q61.02: Multiple [...] component. Report dictated by Romel Hendricks MD, (vice president of nursing). > Dictated by Romel Hendricks MD (Lamination Operator) 05/21/2023 11:22 AM I, Lizandro Diaz MD [...] Diaz MD on 05/21/2023 11:02 AM Alan Davenport MD US ORDERABLES * CARDIAC EKG ORDER [...] above. > Dictated by Neeraj Johnson MD (Lamination Operator) 11/06/2022 12:04 PM I, Ariel Araya MD [...] unspecified vessel or lesion type, unspecified whether [place] or transplanted heart (CMS/HCC) I50.9: Congestive heart [...] pectoris, unspecifiedvessel or lesion type, unspecified whether [place] or transplanted heart(CMS/HCC) I50.9: Congestive heart failure, [...] above. > Dictated by Neeraj Johnson MD (Lamination Operator) 11/06/2022 12:04PM I, Ariel Araya MD have personally reviewed and interpreted this examination/study. > Interpreting Provider: Ariel Araya MD on 11/06/2022 4:[address] MD NM ORDERABLES * STRESS TEST (11/06/2022 11:27 AM CDT) BSA 2.34 m2 SL RADIOLOGY Predicted METS 7.4 METS [facility] Target HR 131 bpm [facility] Max Age Predicted HR 154 bpm [facility] Baseline HR 56 bpm [facility] Stress peak HR 71 bpm [facility] Max HR Percent 46 % [facility] Baseline BP 153/70 mmHg [facility] Post peak BP 153/70 mmHg [facility] Target HR Percent 54 % [facility] Anatomical Region Laterality Modality Cardiac Electrop hysiology Narrative 11/06/2022 3:12 PM CDT ?ECG: The ECG was negative for ischemia. ?Please see nuclear imaging under separate report 1110- Pt to [facility] procedure room for Lexiscan stress test. Assessment completed. 1113- VSS 1116- Informed consent obtained by Dr. Johnson. Physician remained at bedside during stress portion of test. 1118- Lexiscan/Myoview administered per NM tech, pt c/o dyspnea, VSS 07511- Test complete, VSS, symptoms resolved. IV dc'd. [...] ECHO COMPLETE (11/06/2022 9:51 AM CDT) BSA 2.1654353 m2 [facility] CV FUJ I PACS LV [...] PACS RVOT VTI 13.78 cm [facility] CV [facility] I PACS TV S' dontrell 234.54 [facility] CV [facility] I PACS TAPSE 2.378 1.7 cm [facility] CV [facility] I PACS RVOT pk dontrell 0.69 m/s [facility] CV F UJI PACS RA area 19.688 cm2 [facility] CV [facility] I PACS AV mn grad 4 mmHg SSM CV FU JI PACS AV pk grad 7 mmHg [facility] CV FU JI PACS AV mn dontrell 0.87 m/s [facility] CV [facility] I PACS AV pk dontrell 1.28 m/s [facility] CV [facility] I PACS AV VTI 28.508 cm [facility] CV [facility] I PACS LVOT pk grad 4.311 mmHg [...] Index 66 ml/m2 [facility] CV FUJI PACS [id number] 7.967 cm S[facility] CV FUJ I PACS [id number] 8.115 cm [facility] CV FUJ I PACS [...] Prior study date: 11/07/2021. Procedure Note Juliette Sandoval MD - 11/06/2022 ? ? Left??Ventricle: Left [...] % PRA 0 11/13/2022 11:59 AM CDT [facility] ([employer]) Class 2 LUM SAB Moderate Risk DQB1*06:01, 06:03 11/13/2022 11:59 AM CDT [facility] ([employer]) Class 2 SAB Test Date [id number] 11/13/2022 11:59 AM CDT [facility] ([facility]) Comment: This test was developed and its performance characteristics determined by the [facility]. ??It has not been cleared or approved [...] high complexity clinical laboratory testing. ??CLIA ID# [id number] Performed at: [facility], [address] [place], [place] ??[id number] Information Technology Analyst:Dr. Juno Ledesma, PhD, Blood BLOOD SPECIMEN / Unknown No Charge Blood Draw / Unknown 10/28/2022 2:38 PM CDT 11/07/2022 2:38 PM CDT Alan Davenport MD LAB - BLOOD BANK ORD ERABLES [facility] ([facility]) [address] [place] [address], [facility] * HLA ANTIBODY SCREEN LUM CLASS 1 SAB (10/28/2022 2:38 PM CDT) Only the most recent of6 resultswithin the time period is included. % PRA 0 11/13/2022 11:59 AM CDT [facility] ([facility]) Class 1 SAB Test Date [id number] 11/13/2022 11:59 AM CDT [facility] ([facility]) Comment: This test was developed and its performance characteristics determined by the [facility]. ??It has not been cleared or approved [...] high complexity clinical laboratory testing. ??CLIA ID# [id number] Performed at: [facility], [address], [place] ??[address] Information Technology Analyst:Dr. Juno Ledesma, PhD, Blood BLOOD SPECIMEN / Unknown No Charge Blood Draw / Unknown 10/28/2022 2:38 PM CDT 11/07/2022 2:38 PM CDT Alan Davenport MD LAB - BLOOD BANK ORD ERABLES [facility] [address] [place] [address], [facility] * OXALATE BLOOD (03/04/2022 11:04 AM CLINICAL LAB CLERK) Oxalate <2.0 <=2.0 umol/L 03/09/2022 6:49 PM CLINICAL LAB CLERK [facility] [employer] ([facility]) Comment: INTERPRETIVE INFORMATION: Oxalate, Plasma This test was developed and its performance characteristics determined by [employer]. It has not been cleared or approved by the US Food and Drug Administration. This test was performed in a CLIA certified laboratory and is intended for clinical purposes. Performed By: [employer] [address] [place] [address] Rotary Engine Assembler: Mk Egan MD, PhD Blood BLOOD SPECIMEN / Unknown Lab Venipuncture / Unknown 03/04/2022 11:04 AM CLINICAL LAB CLERK 03/04/2022 11:08 AM CLINICAL LAB CLERK Scott Lane MD LAB - CHEMISTR Y ORDERABLES Performing Organization Address [facility]/ZIP Co de Phone Number [facility] [employer] ([facility]) [address] * MRI ABDOMEN WWO CONTRAST (03/04/2022 10:47 AM CLINICAL LAB CLERK) Anatomical Region Laterality Modality Abdomen Magnetic Resonan ce 03/04/2022 11:0 9 AM CLINICAL LAB CLERK Impressions 03/04/2022 1:36 PM CLINICAL LAB CLERK Impression: 1.Focally decreased signal on opposed-phase images [...] hemorrhagic. Report dictated by Ashkan Almeida MD (vice president of nursing). I, Watson Phillips MD have personally reviewed and interpreted this examination/study. > Interpreting Provider: Watson Phillips MD on 03/04/2022 1:36 PM Narrative 03/04/2022 1:36 PM CLINICAL LAB CLERK PROCEDURE: ??MRI ABDOMEN WWO CONTRAST, DATE/TIME OF EXAM: ??03/04/2022 10:47 AM, LOCATION ??[facility] INDICATION: Z01.818: Pre-transplant evaluation for kidney transplant [...] CONTRAST, DATE/TIME OF EXAM: 0:47 AM, LOCATION [facility] INDICATION: Z01.818: Pre-transplant evaluation for kidney transplant [...] hemorrhagic. Report dictated by Ashkan Almeida MD (vice president of nursing). Watson Leigh MD have personally reviewed and interpreted this examination/study. > Interpreting Provider: Watson Phillips MD on 03/04/2022 1:[address] MD MR ORDERABLES * CT CHEST WO CONTRAST (03/04/2022 10:43 AM CLINICAL LAB CLERK) Only the most recent of2 resultswithin the time period is included. Anatomical Region Laterality Modality Chest Computed Tomogra phy 03/04/2022 11:1 0 AM CLINICAL LAB CLERK Impressions 03/04/2022 12:25 PM CLINICAL LAB CLERK Impression: 1.Unchanged left lower lobe pulmonary nodules. [...] likely hemorrhagic/proteinaceous in nature. > Dictated by Lius Muñoz DO (vice president of nursing). Wilfrid Leigh have personally reviewed and interpreted this examination/study. > Interpreting Provider: Wilfrid Fonseca on 03/04/2022 12:25 PM Narrative 03/04/2022 12:25 PM CLINICAL LAB CLERK PROCEDURE: ??CT CHEST WO CONTRAST, DATE/TIME OF EXAM: ??03/04/2022 10:43 AM, LOCATION ??[facility] INDICATION: Z01.818: Pre-transplant evaluation for kidney transplant [...] CONTRAST, DATE/TIME OF EXAM: 03/04/2022 10:43AM, LOCATION [facility] INDICATION: Z01.818: Pre-transplant evaluation for kidney transplant [...] nature. > Dictated by Luis Muñoz DO (vice president of nursing). I, Wilfrid Fonseca have personally reviewed and interpreted this examination/study. > Interpreting Provider: Wilfrid Fonseca on 03/04/2022 12:[address] ORDERABLES * XR CHEST PA AND LATERAL (01/14/2022 10:12 AM CLINICAL LAB CLERK) Only the most recent of2 resultswithin the time period is included. Anatomical Region Laterality Modality Chest Radiographic Pastora ging 01/14/2022 10:2 3 AM CLINICAL LAB CLERK Narrative 01/14/2022 2:50 PM CLINICAL LAB CLERK PROCEDURE: ??XR CHEST 2VW, DATE/TIME OF EXAM: ??01/14/2022 10:12 AM, [facility] INDICATION: Z01.818: Pre-transplant evaluation for kidney [...] hyperostosis. Report dictated by Ruddy Trivedi MD (vice president of nursing). Terry Leigh MD have personally reviewed and interpreted this examination/study. > Interpreting Provider: Terry De Leon MD on 01/14/2022 2:50 PM Procedure Note Tosha De Leon MD - 01/14/2022 PROCEDURE: XR CHEST 2VW, DATE/TIME OF EXAM: 01/14/2022 10:12 AM,LOCATION [facility] INDICATION: Z01.818: Pre-transplant evaluation for kidney transplant [...] hyperostosis. Report dictated by Ruddy Trivedi MD (vice president of nursing). Terry Leigh MD have personally reviewed and interpreted this examination/study. > Interpreting Provider: Terry De Leon MD on 01/14/2022 2:50 PM Marbin Flores MD DIAGNOSTIC IMAGING O RDERABLES * (ABNORMAL) URINALYSIS COMPLETE W MICROSCOPIC (01/14/2022 9:59 AM CLINICAL LAB CLERK) Only the most recent of2 resultswithin the time period is included. Color UA Straw Straw, Yellow 01/14/2022 11:31 AM [facility] Clarity UA Clear Clear 01/14/2022 11:31 AM [facility] Specific [place] UA 1.025 1.005 - 1.030 01/14/2022 11:31 AM [facility] pH UA 7.0 5.0 - 8.0 pH 01/14/2022 11:31 AM [facility] Protein UA 3+(A) Negative 01/14/2022 11:31 AM [facility] Glucose UA Trace(A) Negative 01/14/2022 11:31 AM [facility] Ketone UA Negative Negative 01/14/2022 11:31 AM [facility] Bilirubin UA Negative Negative 01/14/2022 11:31 AM [facility] Blood UA 1+(A) Negative 01/14/2022 11:31 AM [facility] Nitrite UA Negative Negative 01/14/2022 11:31 AM [facility] Leukocyte Esterase Negative Negative 01/14/2022 11:31 AM [facility] Urobilinogen UA Negative Negative mg/dL 01/14/2022 11:31 AM [facility] RBC UA 6-10(A) None Seen, 0-2, 3-5 /HPF 01/14/2022 11:31 AM [facility] WBC UA 0-5 None Seen, 0-5 /HPF 01/14/2022 11:31 AM [facility] Bacteria UA Trace(A) None /HPF 01/14/2022 11:31 AM [facility] Squamous Epithelial Cells UA 0-2 None Seen, 0-2, 3-5 /HPF 01/14/2022 11:31 AM [facility] Mucus UA 1+ /LPF 01/14/2022 11:31 AM CLINICAL LAB CLERK [facility] Hyaline Casts UA 0-2 None Seen, 0-2 /LPF 01/14/2022 11:31 AM [facility] Urine URINE SPECIMEN OBTAINED BY CLEAN CATCH PROCEDURE / Unknown Collection / Unknown 01/14/2022 9:59 AM CLINICAL LAB CLERK 01/14/2022 10:47 AM CLINICAL LAB CLERK Narrative [facility] - 01/14/2022 11:31 AM CLINICAL LAB CLERK Marbin Flores MD LAB - URINALYSIS ORD ERABLES Performing Organization Address City/[facility]/ZIP Co de Phone Number [address] [address], [place] [phone] * PROTEIN URINE RANDOM QUANTITATIVE (01/14/2022 9:59 AM CLINICAL LAB CLERK) Only the most recent of2 resultswithin the time period is included. Protein Urine 365 Not Established mg/dL 01/14/2022 11:47 AM [facility] Comment:Result obtained by seema christianson. Urine URINE SPECIMEN OBTAINED BY CLEAN CATCH PROCEDURE / Unknown Collection / Unknown 01/14/2022 9:59 AM CLINICAL LAB CLERK 01/14/2022 10:47 AM CLINICAL LAB CLERK Marbin Flores MD LAB - URINE CHEMISTR Y ORDERABLES Performing Organization Address [facility] Co de Phone Number [address] [address], [place] [phone] * CREATININE URINE RANDOM (01/14/2022 9:59 AM CLINICAL LAB CLERK) Only the most recent of2 resultswithin the time period is included. Creatinine Urine 81 Not Established mg/dL 01/14/2022 11:20 AM [facility] Urine URINE SPECIMEN OBTAINED BY CLEAN CATCH PROCEDURE / Unknown Collection / Unknown 01/14/2022 9:59 AM CLINICAL LAB CLERK 01/14/2022 10:47 AM CLINICAL LAB CLERK Marbin Flores MD LAB - URINE CHEMISTR Y ORDERABLES [facility] [address] [address], [facility] [phone] * CANNABINOID SCREEN BLOOD (01/14/2022 9:54 AM CLINICAL LAB CLERK) Only the most recent of2 resultswithin the time period is included. Marijuana Metabolites Negative 01/19/2022 8:07 PM CLINICAL LAB CLERK [facility] ([facility]) Comment:REFERENCE RANGE: thr shold: 5 ng/mL Specimen Type Comment 01/19/2022 8:07 PM CLINICAL LAB CLERK [facility] ([facility]) Comment: WHOLE BLOOD This specimen was screened by immunoassay at the thresholds listed above. Presumptive positive results have not been confirmed by an alternate method; results are intended for clinical medical purposes. Please contact the laboratory if confirmatory testing is desired. This test was developed and its performance characteristics determined by [employer]. It has not been cleared or approved by the Food and Drug Administration. Blood BLOOD SPECIMEN / Unknown Lab Venipuncture / Unknown 01/14/2022 9:54 AM CLINICAL LAB CLERK 01/14/2022 10:49 AM CLINICAL LAB CLERK [facility]ative [facility]) - 01/19/2022 8:07 PM CLINICAL LAB CLERK Performed at: ??01 - [email or web address] [address] [place] [address] ??[id number] Information Technology Analyst: Ev Camarena [facility], Phone: ??[phone] Marbin Flores MD LAB - CHEMISTRY PK ZENG Performing Organization Address [facility] Co de Phone Number [facility] ([facility]) [address] [place] [address] * COCAINE METABOLITE QUANT (01/14/2022 9:54 AM CLINICAL LAB CLERK) Only the most recent of2 resultswithin the time period is included. Cocaine and Metabolite Blood <20 ng/mL 01/18/2022 12:32 AM CLINICAL LAB CLERK [facility] ([facility]) Comment: INTERPRETIVE INFORMATION: Cocaine Metabolite, Serum or [...] developed and its performance characteristics determined by [facility] [employer]. It has not been cleared or approved by the US Food and Drug Administration. This test was performed in a CLIA certified laboratory and is intended for clinical purposes. Performed By: [place] [address] [employer]ary Engine Assembler: Mk Egan MD, PhD Blood BLOOD SPECIMEN / Unknown Lab Venipuncture / Unknown 01/14/2022 9:54 AM CLINICAL LAB CLERK 01/14/2022 10:48 AM CLINICAL LAB CLERK Marbin Flores MD LAB - CHEMISTRY ORDE RABADELFO Performing Organization Address City/[facility]/ZIP Co de Phone Number [facility] ([facility]) [address] [place] [address] * SYPHILIS ANTIBODY CASCADING REFLEX (01/14/2022 9:54 AM CLINICAL LAB CLERK) Only the most recent of2 resultswithin the time period is included. [facility] Treponema pallidum Antibody Non-react sylvie Non-react sylvie 01/14/2022 11:52 AM CLINICAL LAB CLERK [facility] Comment: No Laboratory evidence of syphilis infection. ?? Note: ??Circulating antibodies may be low or undetectable in early infection. ??If recent exposure is suspected, re-draw sample in 2-4 weeks and repeat testing. Blood BLOOD SPECIMEN / Unknown Lab Venipuncture / Unknown 01/14/2022 9:54 AM CLINICAL LAB CLERK 01/14/2022 10:48 AM CLINICAL LAB CLERK Marbin Flores MD LAB - SEROLOGY ORDER MICHELLE [address] [address], [place] [phone] * AMPHETAMINE BLOOD CONFIRMATION (01/14/2022 9:54 AM CLINICAL LAB CLERK) Only the most recent of2 resultswithin the time period is included. Pathologist [facility] Amphetamines Confirmation <20 ng/mL 2022 12:55 AM [facility] [employer] ([facility]) Comment: INTERPRETIVE INFORMATION: Amphetamines, Serum or ?Plasma, [...] developed and its performance characteristics determined by [employer]. It has not been cleared or approved by the US Food and Drug Administration. This test was performed in a CLIA certified laboratory and is intended for clinical purposes. Methamphetamine Confirmation <20 ng/mL 2022 12:55 AM [facility] MDA Confirmation <20 ng/mL 01/21/20 22 12:55 AM [facility]) MDMA Confirm <20 ng/mL 2022 12:55 AM [facility]) MDEA Confirmation <20 ng/mL 022 12:55 AM [facility]) Comment: Performed By: [employer] [address] [place] [address] Rotary Engine Assembler: Mk Egan MD, PhD Blood BLOOD SPECIMEN / Unknown Lab Venipuncture / Unknown 01/14/2022 9:54 AM CLINICAL LAB CLERK 01/14/2022 10:48 AM CLINICAL LAB CLERK Marbin Flores MD LAB - CHEMISTRY PK ZENG [facility] [employer] [facility]) [address] [place] [address], [facility] * QUANTIFERON-TB GOLD PLUS 4-TUBE (01/14/2022 9:54 AM CLINICAL LAB CLERK) Only the most recent of2 resultswithin the time period is included. [facility] QuantiFERON NIL 0.02 IU/mL 1:41 AM [facility] [employer] [facility]) Comment: Performed By: [employer] [address] [place] [id number] [employer] Assembler: Mk Egan MD, PhD QuantiFERON TB Gold Plus Negative Negative 01/17/2022 1:41 AM [facility]) Comment: Interpretive Data: Quantiferon TB Gold Plus [...] Mycobacterium tuberculosis Infection --- [place], 2010 (http://www.cdc.gov/mmwr/preview/mmwrhtml/lu7255s3.htm), for more information concerning test performance in low-prevalence populations and use in occupational screening. QuantiFERON Plus TB1 Minus NIL 0.00 0.00 - 0.34 IU/mL 01/17/2022 1:41 AM CLINICAL LAB CLERK [employer] ([facility]) QuantiFERON Plus TB2 Minus NIL 0.01 0.00 - 0.34 IU/mL 01/17/2022 1:41 AM CLINICAL LAB CLERK [employer] [facility]) QuantiFERON Mitogen Minus NIL >10.00 IU/mL 01/17/2022 1:41 AM CLINICAL LAB CLERK [employer] [facility]) Blood BLOOD SPECIMEN / Unknown Lab Venipuncture / Unknown 01/14/2022 9:54 AM CLINICAL LAB CLERK 01/14/2022 10:49 AM CLINICAL LAB CLERK Marbin Flores MD LAB - CHEMISTRY PK ZENG [facility] ([facility]) [address] [place] [address] * (ABNORMAL) PTH INTACT ([facility]) (01/14/2022 9:54 AM CLINICAL LAB CLERK) Only the most recent of2 resultswithin the time period is included. PTH Intact 266.9(H) 8.0 - 77.0 pg/mL 01/14/2022 11:37 AM CLINICAL LAB CLERK [facility] Blood BLOOD SPECIMEN / Unknown Lab Venipuncture / Unknown 01/14/2022 9:54 AM CLINICAL LAB CLERK 01/14/2022 11:00 AM CLINICAL LAB CLERK Marbin Flores MD LAB - CHEMISTRY PK ZENG [address] [address], [facility] [phone] * HIV-1 HIV-2 ANTIBODY + HIV P24 AG PANEL (01/14/2022 9:54 AM CLINICAL LAB CLERK) [facility] HIV Antigen/Antibod y 1 & 2 Non-reacti ve Non-react sylvie 01/14/2022 11:52 AM CLINICAL LAB CLERK [facility] Comment:No Laboratory eviden ce of HIV infection. Blood BLOOD SPECIMEN / Unknown Lab Venipuncture / Unknown 01/14/2022 9:54 AM CLINICAL LAB CLERK 01/14/2022 10:48 AM CLINICAL LAB CLERK Marbin Flores MD LAB - CHEMISTRY PK ZENG [address] [address], [place] [phone] * OPIATES BLOOD (01/14/2022 9:54 AM CLINICAL LAB CLERK) Only the most recent of2 resultswithin the time period is included. Pathologist [facility] Opiates Screen Negative 01/19/2022 8:07 PM CLINICAL LAB CLERK [facility] ([facility]) Comment:REFERENCE RANGE: thr shold: 10 ng/mL Oxycodone Screen Negative 01/20/20 8:07 PM [facility] ([facility]) Comment:REFERENCE RANGE: thr shold: 10 ng/mL Specimen Type Comment 01/19/2022 8:07 PM [facility] ([facility]) Comment: WHOLE BLOOD This specimen was screened by immunoassay at the thresholds listed above. Presumptive positive results have not been confirmed by an alternate method; results are intended for clinical medical purposes. Please contact the laboratory if confirmatory testing is desired. This test was developed and its performance characteristics determined by [facility]. It has not been cleared or approved by the Food and Drug Administration. Blood BLOOD SPECIMEN / Unknown Lab Venipuncture / Unknown 01/14/2022 9:54 AM CLINICAL LAB CLERK 01/14/2022 10:49 AM CLINICAL LAB CLERK Narrative [facility] ([facility]) - 01/19/2022 8:07 PM CLINICAL LAB CLERK Performed at: ??01 - [email or web address] [address] ??[id number] Information Technology Analyst: Ev Camarena [facility], Phone: ??[phone] Marbin Flores MD LAB - CHEMISTRY ORDLien ZENG Performing Organization Address City/[facility]/ZIP Co de Phone Number [facility] ([facility]) [address] [place] [address] * URIC ACID BLOOD (01/14/2022 9:54 AM CLINICAL LAB CLERK) Only the most recent of2 resultswithin the time period is included. Uric Acid 7.0 3.5 - 7.2 mg/dL 01/14/2022 11:38 AM CLINICAL LAB CLERK [facility] Blood BLOOD SPECIMEN / Unknown Lab Venipuncture / Unknown 01/14/2022 9:54 AM CLINICAL LAB CLERK 01/14/2022 11:00 AM CLINICAL LAB CLERK Marbin Flores MD LAB - CHEMISTRY PK ZENG [address] [address], [facility] [phone] * STRONGYLOIDES ANTIBODY IGG (01/14/2022 9:54 AM CLINICAL LAB CLERK) Only the most recent of2 resultswithin the time period is included. Strongyloides Antibody IgG 0.1 <=0.9 IV 01/16/2022 1:02 AM CLINICAL LAB CLERK [employer] ([facility]) Comment: INTERPRETIVE INFORMATION: Strongyloides Ab, IgG by [...] also result in false-positive results. Performed By: [employer] [address] [place] [id number] [employer] Engine Assembler: Mk Egan MD, PhD Blood BLOOD SPECIMEN / Unknown Lab Venipuncture / Unknown 01/14/2022 9:54 AM CLINICAL LAB CLERK 01/14/2022 10:48 AM CLINICAL LAB CLERK Marbin Flores MD LAB - SEROLOGY ORDER MICHELLE Performing Organization Address City/[facility]/ZIP Co de Phone Number [employer] ([facility]) [address] [place] [address], [facility] * CYTOMEGALOVIRUS ANTIBODY IGG BLOOD (01/14/2022 9:54 AM CLINICAL LAB CLERK) Only the most recent of2 resultswithin the time period is included. Cytomegalovirus Antibody IgG <0.20 U/mL 01/15/2022 4:12 PM CLINICAL LAB CLERK [employer] ([facility]) Comment: INTERPRETIVE INFORMATION: Cytomegalovirus Antibody, IgG ??0.59 [...] laboratory at the same time. Performed By: [employer] [address] [place] [address] Rotary Engine Assembler: Mk Egan MD, PhD Blood BLOOD SPECIMEN / Unknown Lab Venipuncture / Unknown 01/14/2022 9:54 AM CLINICAL LAB CLERK 01/14/2022 10:48 AM CLINICAL LAB CLERK Marbin Flores MD LAB - CHEMISTRY ORDE AZUCENA [employer] [facility]) [address] [place] [address], [facility] * TRANSFERRIN (01/14/2022 9:54 AM CLINICAL LAB CLERK) Only the most recent of2 resultswithin the time period is included. Pathologist [facility] Transferrin 176 174 - 382 mg/dL 01/14/2022 11:36 AM CLINICAL LAB CLERK [facility] Blood BLOOD SPECIMEN / Unknown Lab Venipuncture / Unknown 01/14/2022 9:54 AM CLINICAL LAB CLERK 01/14/2022 10:48 AM CLINICAL LAB CLERK Marbin Flores MD LAB - CHEMISTRY ORDE AZUCENA Performing Organization Address City/[facility]/ZIP Co de Phone Number [address] [address], [facility] [phone] * TOXOPLASMA GONDII ANTIBODY IGG (01/14/2022 9:54 AM CLINICAL LAB CLERK) Only the most recent of2 resultswithin the time period is included. [facility] Toxoplasma Antibody IgG <3.0 IU/mL 01/15/2022 4:23 PM CLINICAL LAB CLERK [facility] ([facility]) Comment: INTERPRETIVE INFORMATION: Toxoplasma Ab, IgG ??7.1 [...] the amount of antibody present. Performed By: [employer] [address] [place] [address] Rotary Engine Assembler: Mk Egan MD, PhD Blood BLOOD SPECIMEN / Unknown Lab Venipuncture / Unknown 01/14/2022 9:54 AM CLINICAL LAB CLERK 01/14/2022 10:48 AM CLINICAL LAB CLERK Marbin Flores MD LAB - CHEMISTRY PK ZENG [facility] ([facility]) [address] [place] [address] * (ABNORMAL) HEMOGLOBIN A1C (01/14/2022 9:54 AM CLINICAL LAB CLERK) Only the most recent of2 resultswithin the time period is included. Pathologist [facility] Hemoglobin A1c 8.7(H) <=5.6 % 01/14/2022 1:10 PM CLINICAL LAB CLERK [facility] Estimated Average Glucose 203 mg/dL 01/14/2022 1:10 PM CLINICAL LAB CLERK [facility] Comment: HbA1c Interpretation: Normal : < 5.7% Pre-diabetes: 5.7-6.4% Diabetes: Equal to or greater than 6.5% Test results diagnostic of diabetes should be repeated for confirmation. Treatment target values recommended by ADA and other clinical organizations should be used to evaluate metabolic control in patients. Reference: [place] [employer], Standards of Care in Diabetes -2020 In patients 70 years and older consider HbA1c target range of 7.0-7.5% (Reference: [employer] et al. JAMDA. 2012) The Sebia assay for the measurement of HbA1c is a National Glycohemoglobin Standardization Program (NGSP) certified method. Blood BLOOD SPECIMEN / Unknown Lab Venipuncture / Unknown 01/14/2022 9:54 AM CLINICAL LAB CLERK 01/14/2022 11:00 AM CLINICAL LAB CLERK Marbin Flores MD LAB - CHEMISTRY PK ZENG [facility] [address] [place] [address], [facility] [phone] * VITAMIN D 25-HYDROXY (01/14/2022 9:54 AM CLINICAL LAB CLERK) Only the most recent of2 resultswithin the time period is included. Vitamin D, 25 Hydroxy 39.0 30.0 - 80.0 ng/mL 01/14/2022 11:47 AM [facility] Comment: The recommendations for 25-Hydroxy Vitamin D [...] Lab Venipuncture / Unknown 01/14/2022 9:54 AM CLINICAL LAB CLERK 01/14/2022 11:00 AM [facility] Marbin Flores MD LAB - CHEMISTRY PK ZENG Performing Organization Address [facility]/State/[facility] Co de Phone Number [address] [address], [facility] [phone] * NICOTINE + METABOLITES BLOOD (01/14/2022 9:54 AM CLINICAL LAB CLERK) Only the most recent of2 resultswithin the time period is included. Nicotine <5 ng/mL 01/17/2022 2:23 PM CLINICAL LAB CLERK [employer] ([facility]) Comment: Consistent with abstinence from nicotine-containing products [...] developed and its performance characteristics determined by [employer]. It has not been cleared or approved by the US Food and Drug Administration. This test was performed in a CLIA certified laboratory and is intended for clinical purposes. Performed By: [facility] [employer] [address] [place] [address] Rotary Engine Assembler: Mk Egan MD, PhD Cotinine <5 ng/mL 01/17/2022 2:23 PM CLINICAL LAB CLERK [facility] ([facility]) Blood BLOOD SPECIMEN / Unknown Lab Venipuncture / Unknown 01/14/2022 9:54 AM CLINICAL LAB CLERK 01/14/2022 10:48 AM CLINICAL LAB CLERK Marbin Flores MD LAB - CHEMISTRY PK ZENG [facility] Organization Address City/State/ZIP Co de Phone Number [facility]) [address] [place] [address] * (ABNORMAL) CBC W AUTO DIFFERENTIAL (01/14/2022 9:54 AM CLINICAL LAB CLERK) Only the most recent of4 resultswithin the time period is included. WBC 7.4 3.5 - 10.5 10? 3 /uL 01/14/2022 11:33 AM [facility] RBC 3.19(L) 4.30 - 5.70 10? 6 /uL 01/14/2022 11:33 AM [facility] Hemoglobin 9.7(L) 12.0 - 17.6 g/dL 01/14/2022 11:33 AM [facility] Hematocrit 28.9(L) 35.2 - 51.7 % 01/14/2022 11:33 AM [facility] MCV 90.6 80.7 - 98.3 fL 01/14/2022 11:33 AM [facility] MCH 30.4 26.7 - 34.0 pg 01/14/2022 11:33 AM [facility] MCHC 33.6 30.8 - 35.9 g/dL 01/14/2022 11:33 AM [facility] RDW-SD 47.2 36.0 - 50.0 fL 01/14/2022 11:33 AM [facility] RDW-CV 14.2 11.2 - 14.8 % 01/14/2022 11:33 AM [facility] Platelet Count 148(L) 150 - 400 10? 3 /uL 01/14/2022 11:33 AM [facility] MPV 11.7 9.4 - 12.9 fL 01/14/2022 11:33 AM [facility] nRBC Absolute 0.00 0 10? 3 /uL 01/14/2022 11:33 AM [facility] nRBC Auto 0.0 0 /100 WBC 01/14/2022 11:33 AM [facility] Neutrophils % 75.4(H) 35.0 - 70.0 % 01/14/2022 11:33 AM [facility] Lymphocytes % 11.6(L) 20.0 - 43.0 % 01/14/2022 11:33 AM [facility] Monocytes % 10.6 5.0 - 13.0 % 01/14/2022 11:33 AM [facility] Eosinophils % 0.1 0.0 - 6.0 % 01/14/2022 11:33 AM [facility] Basophil % 0.1 0.0 - 2.0 % 01/14/2022 11:33 AM [facility] Neutrophils Absolute 5.61 1.60 - 7.00 10? 3 /uL 01/14/2022 11:33 AM [facility] Lymphocyte Absolute 0.86(L) 1.10 - 3.90 10? 3 /uL 01/14/2022 11:33 AM [facility] Monocytes Absolute 0.79 0.26 - 1.07 10? 3 /uL 01/14/2022 11:33 AM [facility] Eosinophils Absolute 0.01 0.00 - 0.47 10? 3 /uL 01/14/2022 11:33 AM [facility] Basophils Absolute 0.01 0.00 - 0.08 10? 3 /uL 01/14/2022 11:33 AM [facility] Immature Granulocytes % 2.2(H) 0.0 - 1.0 % 01/14/2022 11:33 AM [facility] Immature Granulocytes Absolute 0.16 01/14/2022 11:33 AM [facility] Blood BLOOD SPECIMEN / Unknown Lab Venipuncture / Unknown 01/14/2022 9:54 AM [facility] 01/14/2022 11:00 AM [facility] Marbin Flores MD LAB - HEMATOLOGY ORD ERABLES Performing Organization Address [facility] Co de Phone Number [address] [address] [phone] * (ABNORMAL) COMPREHENSIVE METABOLIC PANEL (01/14/2022 9:54 AM [facility]) Only the most recent of2 resultswithin the time period is included. BUN 27(H) 7 - 26 mg/dL 01/14/2022 11:38 AM [facility] Creatinine 5.60(H) 0.71 - 1.16 mg/dL 01/14/2022 11:38 AM [facility] Sodium 142 136 - 145 mmol/L 01/14/2022 11:38 AM [facility] Potassium 3.6 3.5 - 4.5 mmol/L 01/14/2022 11:38 AM [facility] Chloride 100 98 - 107 mmol/L 01/14/2022 11:38 AM [facility] CO2 24 22 - 29 mmol/L 01/14/2022 11:38 AM [facility] Glucose 217(H) 70 - 115 mg/dL 01/14/2022 11:38 AM [facility] Calcium 8.3(L) 8.4 - 10.2 mg/dL 01/14/2022 11:38 AM [facility] Protein Total 6.8 6.0 - 8.3 g/dL 01/14/2022 11:38 AM [facility] Albumin 3.1(L) 3.4 - 5.0 g/dL 01/14/2022 11:38 AM [facility] Bilirubin Total 0.6 0.2 - 1.2 mg/dL 01/14/2022 11:38 AM [facility] Alkaline Phosphatase 98 40 - 150 U/L 01/14/2022 11:38 AM [facility] ALT 19 5 - 55 U/L 01/14/2022 11:38 AM [facility] AST 17 5 - 34 U/L 01/14/2022 11:38 AM [facility] Anion Gap 22(H) 8 - 18 01/14/2022 11:38 AM [facility] BUN/Creatinine Ratio 5(L) 7 - 23 01/14/2022 11:38 AM [facility] Osmolality Calculated 306(H) 270 - 300 mOsm/kg 01/14/2022 11:38 AM [facility] Albumin/Globulin Ratio 0.8(L) 1.1 - 2.3 01/14/2022 11:38 AM [facility] eGFR by CKD-EPI 11(L) >=90 mL/min/1.7 3 m2 01/14/2022 11:38 AM [facility] Blood BLOOD SPECIMEN / Unknown Lab Venipuncture / Unknown 01/14/2022 9:54 AM CLINICAL LAB CLERK 01/14/2022 11:00 AM [facility] Marbin Flores MD LAB - CHEMISTRY KP ZENG [facility] Organization Address City/State/ZIP Co de Phone Number [address] [address], [facility] [phone] * PROSTATE SPECIFIC ANTIGEN SCREEN (01/14/2022 9:54 AM [facility]) Only the most recent of2 resultswithin the time period is included. PSA Total 3.3 0.0 - 4.0 ng/mL 01/14/2022 11:54 AM CLINICAL LAB CLERK [facility] Blood BLOOD SPECIMEN / Unknown Lab Venipuncture / Unknown 01/14/2022 9:54 AM CLINICAL LAB CLERK 01/14/2022 11:00 AM CLINICAL LAB CLERK Marbin Flores MD LAB - CHEMISTRY PK ZENG Performing Organization Address City/[facility]/ZIP Co de Phone Number [address] [address], [place] [phone] * (ABNORMAL) PHOSPHORUS BLOOD (01/14/2022 9:54 AM CLINICAL LAB CLERK) Only the most recent of2 resultswithin the time period is included. Phosphorus 5.4(H) 2.8 - 5.1 mg/dL 01/14/2022 11:38 AM CLINICAL LAB CLERK [facility] Blood BLOOD SPECIMEN / Unknown Lab Venipuncture / Unknown 01/14/2022 9:54 AM CLINICAL LAB CLERK 01/14/2022 11:00 AM CLINICAL LAB CLERK Marbin Flores MD LAB - CHEMISTRY PK ZENG Performing Organization Address City/[facility]/ZIP Co de Phone Number [address] [address], [place] [phone] * IRON BLOOD (01/14/2022 9:54 AM CLINICAL LAB CLERK) Only the most recent of2 resultswithin the time period is included. Iron 62 50 - 175 ug/dL 01/14/2022 11:36 AM CLINICAL LAB CLERK [facility] Blood BLOOD SPECIMEN / Unknown Lab Venipuncture / Unknown 01/14/2022 9:54 AM CLINICAL LAB CLERK 01/14/2022 10:48 AM CLINICAL LAB CLERK Marbin Flores MD LAB - CHEMISTRY PK ZENG [address] [address], [place] [phone] * LDL CHOLESTEROL DIRECT (01/14/2022 9:54 AM CLINICAL LAB CLERK) Only the most recent of3 resultswithin the time period is included. LDL Direct 46 <100 mg/dL 01/14/2022 11:57 AM [facility] Comment: ATP III Classification of LDL Cholesterol: ?<100 mg/dL: ??Optimal ? 100 - 129 mg/dL: ??Near Optimal/Above Optimal ? 130 - 159 mg/dL: ??Borderline High ? 160 - 189 mg/dL: ??High ?>190 mg/dL: ??Very High Blood BLOOD SPECIMEN / Unknown Lab Venipuncture / Unknown 01/14/2022 9:54 AM CLINICAL LAB CLERK 01/14/2022 11:00 AM [facility] Marbin Flores MD LAB - CHEMISTRY KP ZENG [address] [address], [facility] [phone] * HEPATITIS B SURFACE ANTIBODY (01/14/2022 9:54 AM [facility]) Only the most recent of2 resultswithin the time period is included. [facility] Hepatitis B Virus Surface Antibody Non-react sylvie Non-react sylvie 01/14/2022 11:52 AM [facility] Comment: < 8 mIU/mL Hepatitis B surface Antibody (HBsAb). Nonreactive for HBsAb - individual is considered not immune to Hepatitis B Virus infection. Hepatitis B Surface Antibody Quantitative 1.2 <8.0 mIU/mL 01/14/2022 11:52 AM [facility] Comment: Hepatitis B Surface Antibody Numeric Result Interpretation: ? Nonreactive: ?<8.0 mIU/mL ? Indeterminate: ??8.0 - 12.0 mIU/mL ? Reactive: ?>12.0 mIU/mL ? Blood BLOOD SPECIMEN / Unknown Lab Venipuncture / Unknown 01/14/2022 9:54 AM CLINICAL LAB CLERK 01/14/2022 10:48 AM CLINICAL LAB CLERK Marbin Flores MD LAB - CHEMISTRY PK ZENG Performing Organization Address City/[facility]/ZIP Co de Phone Number [facility] [address] [place] [address], [place] [phone] * HEPATITIS B CORE ANTIBODY (01/14/2022 9:54 AM CLINICAL LAB CLERK) Only the most recent of2 resultswithin the time period is included. [facility] HBc Antibody Total Non-reacti ve Non-reacti ve 01/14/2022 11:52 AM CLINICAL LAB CLERK [facility] Blood BLOOD SPECIMEN / Unknown Lab Venipuncture / Unknown 01/14/2022 9:54 AM CLINICAL LAB CLERK 01/14/2022 10:48 AM CLINICAL LAB CLERK Marbin Flores MD LAB - CHEMISTRY PK ZENG Performing Organization Address City/[facility]/ZIP Co de Phone Number [facility] [address] [place] [address], [place] [phone] * HEPATITIS B SURFACE ANTIGEN W RFLX CONFIRMATION (01/14/2022 9:54 AM CLINICAL LAB CLERK) Only the most recent of2 resultswithin the time period is included. [facility] Hepatitis B Virus Surface Antigen Non-reacti ve Non-reacti ve 01/14/2022 11:52 AM CLINICAL LAB CLERK [facility] Blood BLOOD SPECIMEN / Unknown Lab Venipuncture / Unknown 01/14/2022 9:54 AM CLINICAL LAB CLERK 01/14/2022 10:48 AM CLINICAL LAB CLERK Marbin Flores MD LAB - CHEMISTRY PK ZENG Performing Organization Address City/[facility]/ZIP Co de Phone Number [facility] [address] [place] [address], [place] [phone] * ALCOHOL ETHYL BLOOD (01/14/2022 9:54 AM CLINICAL LAB CLERK) Only the most recent of2 resultswithin the time period is included. [facility] Ethanol (mg/dL) <10 <=10 mg/dL 11:38 AM [facility] Ethanol Calculated (g/dL) <0.010 <0.010 g/dL 01/14/2022 11:38 AM [facility] Blood BLOOD SPECIMEN / Unknown Lab Venipuncture / Unknown 01/14/2022 9:54 AM CLINICAL LAB CLERK 01/14/2022 11:00 AM CLINICAL LAB CLERK Narrative [facility] - 01/14/2022 11:38 AM CLINICAL LAB CLERK Ethanol Interp <10: None Detected. Depression of JOIST SETTER: >100 mg/dl Potentially Critical: >250 mg/dl Potentially [...] - CHEMISTRY PK ZENG Performing Organization Address City/[facility]/ZIP Co de Phone Number [address] [address], [facility] [phone] * HEPATITIS C ANTIBODY (01/14/2022 9:54 AM CLINICAL LAB CLERK) Only the most recent of2 resultswithin the time period is included. [facility] Hepatitis C Antibody Non-react sylvie Non-reac tive 01/14/2022 11:52 AM [facility] Comment:Hepatitis C Antibody screen [...] Lab Venipuncture / Unknown 01/14/2022 9:54 AM CLINICAL LAB CLERK 01/14/2022 10:48 AM CLINICAL LAB CLERK Marbin Flores MD LAB - CHEMISTRY PK ZENG [address] [address], [facility] [phone] * HEPATITIS A ANTIBODY (01/14/2022 9:54 AM CLINICAL LAB CLERK) Only the most recent of2 resultswithin the time period is included. [facility] Hepatitis A Virus Antibody Total Negative Negative 01/15/2022 1:38 PM CLINICAL LAB CLERK [facility] ([facility]) Comment: Performed by [employer], [address] [place] [address] [email or web address], Mk Egan MD, PHD, Lab. Director Blood BLOOD SPECIMEN / Unknown Lab Venipuncture / Unknown 01/14/2022 9:54 AM CLINICAL LAB CLERK 01/14/2022 10:48 AM CLINICAL LAB CLERK Marbin Flores MD LAB - CHEMISTRY PK ZENG Performing Organization Address City/[facility]/ZIP Co de Phone Number [facility] [employer] [facility]) [address] * (ABNORMAL) FERRITIN (01/14/2022 9:54 AM CLINICAL LAB CLERK) Only the most recent of2 resultswithin the time period is included. [facility] Ferritin 847(H) 22 - 275 ng/mL 01/14/2022 11:52 AM CLINICAL LAB CLERK [facility] Blood BLOOD SPECIMEN / Unknown Lab Venipuncture / Unknown 01/14/2022 9:54 AM CLINICAL LAB CLERK 01/14/2022 10:48 AM CLINICAL LAB CLERK Marbin Flores MD LAB - CHEMISTRY PK [facility] [address] [place] [address], [facility] [phone] * (ABNORMAL) LIPID PROFILE (01/14/2022 9:54 AM CLINICAL LAB CLERK) Only the most recent of3 resultswithin the time period is included. [facility] Cholesterol Total 173 <200 mg/dL 01/14/2022 11:38 AM CLINICAL LAB CLERK [facility] HDL 21(L) >40 mg/dL 01/14/2022 11:38 AM [facility] Comment: ATP III Classification of HDL Cholesterol: ? <40 mg/dL: ??Considered a major risk factor. ? >60 mg/dL: ??Considered a negative risk factor. ? LDL Calculated 01/14/2022 11:38 AM [facility] Comment:Calculation of LDL v alue was not performed because triglyceride concentrations greater than 400 mg/dL render the calculated value invalid. For this reason, the LDL Direct assay for measurement of LDL Cholesterol has been performed (per laboratory protocol). Triglycerides 706(H) <150 mg/dL 01/14/2022 11:38 AM [facility] Comment: ATP III Classification of Triglycerides: ?<150 mg/dL: ??Normal ? 150 - 199 mg/dL: ??Borderline High ? 200 - 400 mg/dL: ??High ?>500 mg/dL: ??Very High Blood BLOOD SPECIMEN / Unknown Lab Venipuncture / Unknown 01/14/2022 9:54 AM CLINICAL LAB CLERK 01/14/2022 11:00 AM CLINICAL LAB CLERK Marbin Flores MD LAB - CHEMISTRY [facility] Organization Address City/State/[facility] Co de Phone Number [facility] [address] [place] [address], [facility] [phone] * ECHO COMPLETE (11/07/2021 11:30 AM CDT) [...] Alexey Sellers M.D. Vascular and Interventional Radiology [facility] [phone] CC: Patient's automatic glove former: Dr. Alan Mccall Dialysis unit: [facility] Alan Mccall MD IR ORDERABLES * IR CENTRAL LINE INSERT TUNNEL (04/04/2021 10:31 AM CLINICAL LAB CLERK) Only the most recent of2 resultswithin the time period is included. Anatomical Region Laterality Modality Chest, Upper Extremity X-Ray Ang iography Narrative 04/04/2021 10:20 AM CLINICAL LAB CLERK Santiago Sellers MD ? 04/04/2021 10:21 AM [...] completed, removal can be scheduled by calling [facility] at [phone]. Alexey Sellers M.D. Vascular and Interventional Radiology [facility] [phone] CC: Patient's automatic glove former: Dr. Alan Mccall Dialysis unit: [facility] Alan Mccall MD IR ORDERABLES * [...] Mccall MD LAB - CHEMISTRY PK ZENG [facility] [address] [place] [address] * FL PERITONEUM (09/06/2020 10:07 AM CDT) Anatomical Region Laterality Modality Abdomen X-Ray Angiograph y Narrative 09/06/2020 11:46 AM CDT Aki Boles MD ? 09/06/2020 ??2:51 PM Kendall P Meseret 1955 [id number] Interventional Nephrology Procedure Date: ??09/06/2020 Attending Surgeon [...] PLACEMENT: ??INJECTION OF AIR/CONTRAST OF PERITONEAL CAVITY; 06529; 19365 Findings: 1. ??Contrast injection through the catheter [...] laparoscopic. Aki Boles MD 09/06/2020 11:46 AM [facility] VAC [phone] Christiano Perea MD [facility] Alan Mccall MD FLUOROSCOPY ORDERABL ES * CARDIAC PROCEDURE ORDER (08/07/2020 3:59 PM CDT) Narrative 08/07/2020 3:59 PM CDT Ordered by an unspecified provider. Scanned Document CARDIAC SERVICES ORD ERABLES * CCL CARDIAC CATH LEFT (08/04/2020 11:57 AM CDT) Anatomical Region Laterality Modality Chest X-Ray Angiograph y Narrative 08/16/2020 2:51 PM CDT [facility] Cardiac Catheterization Procedure Note Patient: Kendall Carl Age: [age] year old Date of : 1955 Procedure Date: 08/04/2020 FELLOW / BUSINESS OBJECTS ARCHITECT: Jade Russo MD ATTENDING PHYSICIAN: ??Javier Lan [...] evaluation, please review the evaluation forms in [facility]. For details on monitored clinical parameters during the intra-service sedation time, please review the procedure nurse documentation in [facility] and [facility]. Total sedation administered as [...] lesion into the distal ??Vessel using a GuidePowerInboxlla II guide extension catheter 8. PROCEDURE DETAILS:Balloon [...] Javier Lan MD Eliza Phan MD CARDIAC HOSPICE MUSIC THERAPY RA DIANT * (ABNORMAL) GLUCOSE - POINT OF CARE (08/04/2020 9:23 AM CDT) Only the most recent of4 resultswithin the time period is included. [facility] Signature Glucose WB/POC 403(H) 70 - 115 mg/dL 08/04/2020 9:27 AM CDT [facility] Specimen Type Venous 08/04/2020 9:27 AM CDT [facility] Blood BLOOD SPECIMEN / Unknown 08/04/2020 9:23 AM CDT 08/04/2020 9:27 AM CDT Eliza Phan MD LAB - POINT OF CARE ORDERABLES Performing Organization Address City/State/[facility] Co de Phone Number [facility] [address] [place] [address], [facility] [phone] * XR CHEST 1VW (08/02/2020 2:31 PM [...] DIAGNOSTIC IMAGING ORDERABLES * CT KIDNEY BIOPSY( 60928 and 05947) (08/02/2020 1:16 PM CDT) Anatomical Region Laterality [...] Case Report Surgical Pathology Report ? Case: [id number] ? Authorizing Provider: ??Thomas Mendoza MD ?Collected: ? 08/02/2020 12:20 PM ? Ordering Location: ? [facility] IVR ?Received: ?08/02/2020 01:42 PM ? Pathologist: ? Elinor Phillips MD ? Specimen: ?Kidney Mass, Biopsy ? 08/04/2020 3:00 PM [facility] Final Diagnosis Kidney, left, biopsy (A): - Oncocytic neoplasm, see comment 08/04/2020 3:00 PM [facility] Microscopic Description and Comment Immunostains show tumor cells are positive for CD117 and rare tumor cells are positive for CK7 and BerEP4. If this biopsy is development representative of the entire lesion, it would be consistent with an oncocytoma. 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 Received in formalin, specimen A , are 4 purple-ho soft tissue cores 0.5-1.4 cm in length with diameters of 0.1 cm and a 0.9 x 0.1 x 0.1 cm portion of red-brown blood clot, submitted in toto in cassette A1. 08/04/2020 3:00 PM [facility] Disclaimer The performance characteristics of all immunohistochemical and indirect immunofluorescence stains (if any) cited in this report were determined by the Histopathology Laboratory of [facility]. Some of these tests were developed [...] attending (teaching) pathologist. 08/04/2020 3:00 PM CDT [facility] Embedded Images 08/04/2020 3:00 PM CDT [facility] Pathology/Cytolo gy MASS / Unknown Collection / Unknown 08/02/2020 12:20 PM CDT 08/02/2020 1:42 PM CDT Thomas Mendoza MD LAB - PATHOLOGY/CY SPENCEROGKp ORDERABLES Performing Organization Address [facility] Co de Phone Number [facility] LAB [facility] [phone] * PT-INR (07/28/2020 8:14 AM CDT) PT 12.8 12.1 - 14.8 sec 07/28/2020 8:41 AM CDT [facility] INR 1.0 0.9 - 1.1 07/28/2020 8:41 AM CDT [facility] Blood BLOOD SPECIMEN / Unknown Lab Venipuncture / Unknown 07/28/2020 8:14 AM CDT 07/28/2020 8:14 AM CDT Narrative [facility] - 07/28/2020 8:41 AM CDT Conventional Warfarin Anticoagulant Therapy: INR Reference Range: ??2.0-3.0 Intensive Warfarin Anticoagulant Therapy: INR Reference Range: ? 2.5-3.5 Eliza Phan MD LAB - COAGULATION O RDERABLES Performing Organization Address City/[facility]/ZIP Co de Phone Number [facility] [address] [place] [address] * (ABNORMAL) BASIC METABOLIC PANEL (CALCIUM TOTAL) (07/28/2020 8:14 AM CDT) [facility] Glucose 290(H) 70 - 105 mg/dL 07/28/2020 9:06 AM CDT [facility] Sodium 137 136 - 145 mmol/L 07/28/2020 9:06 AM CDT [facility] Potassium 4.2 3.5 - 5.1 mmol/L 07/28/2020 9:06 AM CDT [facility] Chloride 101 98 - 107 mmol/L 07/28/2020 9:06 AM CDT [facility] CO2 25 23 - 31 mmol/L 07/28/2020 9:06 AM CDT [facility] Calcium 8.8 8.4 - 10.4 mg/dL 07/28/2020 9:06 AM CDT [facility] Anion Gap 11 8 - 18 mmol/L 07/28/2020 9:06 AM CDT [facility] BUN 38(H) 8.4 - 25.7 mg/dL 07/28/2020 9:06 AM CDT [facility] Creatinine 5.77(H) 0.72 - 1.25 mg/dL 07/28/2020 9:06 AM CDT [facility] eGFR by MDRD 10(L) >60 mL/min/1.7 3m2 07/28/2020 9:06 AM CDT [facility] eGFR by MDRD 12(L) >60 mL/min/1.7 3m2 07/28/2020 9:06 AM CDT [facility] Blood BLOOD SPECIMEN / Unknown Lab Venipuncture / Unknown 07/28/2020 8:14 AM CDT 07/28/2020 8:14 AM CDT Eliza Phan MD LAB - CHEMISTRY ORD ERABLES [facility] [address] [place] [address] * CT KIDNEYS WWO CONTRAST [...] stability. Report dictated by Donny Oneill DO (vice president of nursing) I, Dr. RODRICK JOSEPH have personally reviewed [...] stability. Report dictated by Donny Oneill DO (vice president of nursing) I, Dr. RODRICK JOSEPH have personally reviewed and interpreted this examination/study. This report was electronically signed by RODRICK JOSEPH on 11:16 PM . Alan Davenport MD CT ORDERABLES * HEMOGLOBIN A1C - POINT OF CARE (AMB) [facility] (05/17/2020 1:19 PM CDT) Hemoglobin A1c POCT 11.1 BLOOD SPECIMEN / Unknown 05/17/2020 1:19 PM CDT Miya Juárez APRN-CHEMICAL EDUCATOR LAB - POINT O F CARE ORDERABLES [...] the fluoroscopy table in supine position. AP matrix bath attendant image was obtained. A Key catheter was [...] the fluoroscopy table in supine position. AP matrix bath attendant image was obtained. A Key catheter was [...] Rh O NEG 11/09/2019 12:07 PM CDT [facility] Blood BLOOD SPECIMEN / Unknown Lab Venipuncture / Unknown 11/09/2019 10:20 AM CDT 11/09/2019 11:20 AM CDT Alan Davenport MD LAB - BLOOD BANK ORD ERABLES [facility] [address] [place] [address], [facility] [phone] * HLA TYPING DNA LOW RESOLUTION DR,DQ (11/09/2019 10:13 AM CDT) DR DQ Low Resolution DRB1-1 03 (DR17) 12/09/2019 3:33 PM CDT [facility] ([facility]) DR DQ Low Resolution DRB1-2 11 12/09/2019 3:33 PM CDT [facility] ([facility]) DR DQ Low Resolution DQB1-1 02 12/09/2019 3:33 PM CDT [facility] ([facility]) DR DQ Low Resolution DQB1-2 03 (DQ7) 12/09/2019 3:33 PM CDT [facility] ([facility]) DR DQ Low Resolution DRB3-1 01 12/09/2019 3:33 PM CDT [facility] ([facility]) DR DQ Low Resolution DRB3-2 02 12/09/2019 3:33 PM CDT [facility] ([facility]) DR DQ Low Resolution DRB4-1 Negative 12/09/2019 3:33 PM CDT [facility] ([facility]) DR DQ Low Resolution DRB4-2 Negative 12/09/2019 3:33 PM CDT [facility] ([facility]) DR DQ Low Resolution DRB5-1 Negative 12/09/2019 3:33 PM CDT [facility] ([facility]) DR DQ Low Resolution DRB5-2 Negative 12/09/2019 3:33 PM CDT [facility] ([facility]) DR DQ Low Resolution Methodology SSOP 12/09/2019 3:33 PM CDT [facility] ([facility]) Comment DR DQ Low Resolution - 12/09/2019 3:33 PM CDT [facility] ([facility]) DR DQ Low Resolution test date 12/09/2019 12/09/2019 3:33 PM CDT [facility] ([facility]) Comment: This test was developed and its performance characteristics determined by the [facility]. ??It has not been cleared or [...] high complexity clinical laboratory testing. ??CLIA ID# [id number] Performed at: ??[facility], [address] @ [facility], [place] ??[phone] Information Technology Analyst: Juan Diego Martin MD, Blood BLOOD SPECIMEN / Unknown Lab Venipuncture / Unknown 11/09/2019 10:13 AM CDT 11/10/2019 3:47 AM CDT Alan Davenport MD LAB - BLOOD BANK ORD ERABLES [facility] ([facility]) [address] [place] [address], [facility] * HLA TYPING DNA LOW RESOLUTION A,B,C (11/09/2019 10:13 AM CDT) Pathologist [facility] ABC DNA A1 02 12/09/2019 3:34 PM CDT [facility] ([facility]) ABC DNA A2 03 12/09/2019 3:34 PM CDT [facility] ([facility]) ABC DNA B1 08 12/09/2019 3:34 PM CDT [facility] ([facility]) ABC DNA B2 44 12/09/2019 3:34 PM CDT [facility] ([facility]) ABC DNA BW1 6 12/09/2019 3:34 PM CDT [facility] ([facility]) ABC DNA BW2 4 12/09/2019 3:34 PM CDT [facility] ([facility]) ABC DNA C1 02 12/09/2019 3:34 PM CDT [facility] ([facility]) ABC DNA C2 07 12/09/2019 3:34 PM CDT [facility] ([facility]) ABC DNA Methodology SSOP 12/08 3:34 PM CDT [facility] ([facility]) Comment ABC DNA - 0 3:34 PM CDT [facility] ([facility]) ABC DNA Test Date 0 12/09/2019 3:34 PM CDT [facility] ([facility]) Comment: This test was developed and its performance characteristics determined by the [facility]. ??It has not been cleared or [...] high complexity clinical laboratory testing. ??CLIA ID# [id number] Performed at: ??[facility], [address] @ [place], [place] ??[phone] Information Technology Analyst: Juan Diego Martin MD, Blood BLOOD SPECIMEN / Unknown Lab Venipuncture / Unknown 11/09/2019 10:13 AM CDT 11/10/2019 3:47 AM CDT Alan Davenport MD LAB - BLOOD BANK ORD ERABLES [facility] ([facility]) [address] [place] [address], [facility] * HLA ANTIBODY SCREEN LUM CLASS 2 ID (11/09/2019 10:13 AM CDT) Pathologist [facility] % PRA 4 12/09/2019 3:33 PM CDT [facility] ([facility]) Class 2 LUM Specificity - 12/09/2019 3:33 PM CDT [facility] ([facility]) Class 2 LUM Test Date 0 12/09/2019 3:33 PM CDT [facility] ([facility]) Comment: This test was developed and its performance characteristics determined by the [facility]. ??It has not been cleared or [...] high complexity clinical laboratory testing. ??CLIA ID# [id number] Performed at: ??[facility], [address] @ [place], [place] ??[phone] Information Technology Analyst: Juan Diego Martin MD, Blood BLOOD SPECIMEN / Unknown Lab Venipuncture / Unknown 11/09/2019 10:13 AM CDT 11/10/2019 3:40 AM CDT Alan Davenport MD LAB - BLOOD BANK ORD ERABLES [facility] ([facility]) [address] [place] [address], [place] * HLA ANTIBODY SCREEN LUM CLASS 1 ID (11/09/2019 10:13 AM CDT) % PRA 0 12/09/2019 3:33 PM CDT [facility] ([facility]) Class 1 LUM Specificity - 12/09/2019 3:33 PM CDT [facility] ([facility]) Class 1 LUM Test Date 0 12/09/2019 3:33 PM CDT [facility] ([facility]) Comment: This test was developed and its performance characteristics determined by the [facility]. ??It has not been cleared or [...] high complexity clinical laboratory testing. ??CLIA ID# [id number] Performed at: ??[facility], [address] @ [place], [place] ??[phone] Information Technology Analyst: Juan Diego Martin MD, Blood BLOOD SPECIMEN / Unknown Lab Venipuncture / Unknown 11/09/2019 10:13 AM CDT 11/10/2019 3:40 AM CDT Alan Davenport MD LAB - BLOOD BANK ORD ERABLES [facility] ([facility]) [address] [place] [address], [place] * HIV-1 HIV-2 ANTIGEN/ANTIBODY (11/09/2019 10:13 AM CDT) HIV Antigen/Antibod y 1 & 2 Non-reacti ve Non-react sylvie 11/09/2019 12:26 PM CDT [facility] Comment:Neither HIV-1 p24 An tigen nor HIV-1/HIV-2 Antibodies are detected. Blood BLOOD SPECIMEN / Unknown Lab Venipuncture / Unknown 11/09/2019 10:13 AM CDT 11/09/2019 11:10 AM CDT Alan Davenport MD LAB - HEMATOLOGY ORD ERABLES Performing Organization Address City/[facility]/ZIP Co de Phone Number [facility] [address] [place] [address], [facility] [phone] * RUBELLA ANTIBODY IGG TITER (11/09/2019 10:13 AM CDT) Rubella Antibody IgG >330.0 IU/mL 11/11/2019 11:06 AM CDT [employer] ([facility]) Comment: INTERPRETIVE INFORMATION: Rubella Antibody, IgG ??Less [...] the amount of antibody present. Performed By: [employer] [address] [place] [address] Rotary Engine Assembler: Kaur Blankenship MD Blood BLOOD SPECIMEN / Unknown Lab Venipuncture / Unknown 11/09/2019 10:13 AM CDT 11/09/2019 11:10 AM CDT Alan Davenport MD LAB - SEROLOGY ORDER MICHELLE Performing Organization Address City/[facility]/ZIP Co de Phone Number [facility]) [address] * RUBEOLA ANTIBODY IGG (11/09/2019 10:13 AM CDT) Measles (Rubeola) Antibody IgG >300.0 AU/mL 11/11/2019 12:20 PM CDT [facility] [employer] ([facility]) Comment: INTERPRETIVE INFORMATION: Measles (Rubeola) Antibody, IgG [...] laboratory at the same time. Performed By: [employer] [address] [place] [address] Rotary Engine Assembler: Kaur Blankenship MD Blood BLOOD SPECIMEN / Unknown Lab Venipuncture / Unknown 11/09/2019 10:13 AM CDT 11/09/2019 11:11 AM CDT Alan Davenport MD LAB - CHEMISTRY PK ZENG [employer] ([facility]) [address] * MUMPS ANTIBODY IGG (11/09/2019 10:13 AM CDT) Mumps Virus Antibody IgG >300.0 AU/mL 11/11/2019 11:57 AM CDT [place] [employer] ([facility]) Comment: INTERPRETIVE INFORMATION: Mumps Ab, IgG by PAOLA ??8.9 AU/mL or less .... Negative - [...] laboratory at the same time. Performed By: [employer] [address] [place] [address] Rotary Engine Assembler: Kaur Blankenship MD Blood BLOOD SPECIMEN / Unknown Lab Venipuncture / Unknown 11/09/2019 10:13 AM CDT 11/09/2019 11:10 AM CDT Alan Davenport MD LAB - CHEMISTRY PK ZENG [place] [employer] ([facility]) [address] * VARICELLA ZOSTER ANTIBODY IGG (11/09/2019 10:13 AM CDT) Varicella zoster Virus Antibody IgG 1243.0 IV 11/11/2019 12:55 PM CDT [employer] ([facility]) Comment: INTERPRETIVE INFORMATION: VZV Ab, IgG 134.9 [...] laboratory at the same time. Performed By: [employer] [address] [place] [address] Rotary Engine Assembler: Kaur Blankenship MD Blood BLOOD SPECIMEN / Unknown Lab Venipuncture / Unknown 11/09/2019 10:13 AM CDT 11/09/2019 11:11 AM CDT Alan Davenport MD LAB - CHEMISTRY PK ZENG [facility] [employer] [facility]) [address] [place] [address], [facility] * (ABNORMAL) CHARLENE-GAONA VIRUS ANTIBODY TO VCA IGG (11/09/2019 10:13 AM CDT) Charlene-Gaona Virus Antibody IgG Viral Capsid Antigen 277.0(H) 0.0 - 21.9 U/mL 11/11/2019 12:37 PM CDT [facility] [employer] ([facility]) Comment: INTERPRETIVE INFORMATION: Charlene-Gaona Virus Antibody to ?Viral Capsid Antigen, IgG ??17.9 U/mL or less.......Not Detected ??18.0-21.9 U/mL..........Indeterminate - Repeat testing in ?10-14 days may be helpful. ??22.0 U/mL or greater....Detected Performed By: [employer] [address] [place] [address] Rotary Engine Assembler: Kaur Blankenship MD Blood BLOOD SPECIMEN / Unknown Lab Venipuncture / Unknown 11/09/2019 10:13 AM CDT 11/09/2019 11:12 AM CDT Alan Davenport MD LAB - CHEMISTRY PK ZENG Performing Organization Address City/[facility]/ZIP Co de Phone Number [facility] [employer] ([facility]) [address] * TYPE + SCREEN PANEL (11/09/2019 10:13 AM CDT) Antibody Screen NEG 0 12:07 PM CDT [facility] ABO Rh O NEG 11/09/2019 12:07 PM CDT [facility] Blood Bank BLOOD SPECIMEN / Unknown Lab Venipuncture / Unknown 11/09/2019 10:13 AM CDT 11/09/2019 11:20 AM CDT Alan Davenport MD LAB - BLOOD BANK ORD ASHLEY [facility] [address] [place] [address], [facility] [phone] * CT ABDOMEN AND PELVIS NON IV [...] Enlarged prostate. Dictated by Agusto Bradley MD (vice president of nursing). I, Dr. Terry DE LEON M.D. have [...] Enlarged prostate. Dictated by Agusto Bradley MD (vice president of nursing). IDr. Terry M.D. have personally reviewed and interpretedthis examination/study. This report was electronically signed by Terry DE LEON M.D. on 11/09/2019 3:11 PM . Alan Davenport MD CT ORDERABLES * XR PANOREX (11/09/2019 9:47 AM CDT) Anatomical Region Laterality Modality Head Radiographic Pastora ging 11/09/2019 10:3 9 AM CDT Impressions 11/10/2019 9:54 AM CDT IMPRESSION: No periapical abscess. Dictated by Felipe Younger MD (vice president of nursing). Dr. ADRIANA Leigh have personally reviewed and [...] periapical abscess. Dictated by Felipe Younger MD (vice president of nursing). Dr. ADRIANA Leigh have personally reviewed and [...] RIGHT 3VW OR MORE (03/05/2018 10:25 AM CLINICAL LAB CLERK) Anatomical Region Laterality Modality Wrist / Hand Radiographic Pastora ging 03/05/2018 11:3 0 AM CLINICAL LAB CLERK Impressions 03/05/2018 12:17 PM CLINICAL LAB CLERK IMPRESSION: 1. No acute bony abnormalities. No significant joint space narrowing. 2. Suggestion of mild diffuse soft tissue swelling of the third digit. Dictated by Lizandro Diaz MD (vice president of nursing). Dr. Terry Leigh M.D. have personally reviewed and interpreted this examination/study. This report was electronically signed by Terry DE LEON M.D. ??on 03/05/2018 12:17 PM . Narrative 03/05/2018 12:17 PM CLINICAL LAB CLERK EXAMINATION: XR HAND RIGHT 3VW OR MORE [...] third digit. Dictated by Lizandro Diaz MD (vice president of nursing). Dr. Terry Leigh M.D. have personally reviewed and interpretedthis examination/study. This report was electronically signed by Terry DE LEON M.D. on 03/05/2018 12:17 PM . Aracely Rock PA-[facility] DIAGNOSTIC IMAG ING ORDERABLES * XR KNEE 3 VW RIGHT (03/28/2017 8:14 AM CLINICAL LAB CLERK) Anatomical Region Laterality Modality Lower Extremity Computed Radiogr aphy Narrative 03/28/2017 1:03 PM CLINICAL LAB CLERK Nadja Jenkins, RT(R) ? 03/28/2017 ??1:03 PM See progress notes for results Marilou Rodríguez PA-C DIAGNOSTIC IM AGING ORDERABLES Care Teams Fire Control Mechanic Relationship Specialty Start Date End Date Jeff Strickland MD [address] [place] [address] PCP - General 03/05/18 [place] [address] [facility] [address] [place] [address] Orthopedic Surgery 03/28/17
--- OUTSIDE RECORDS SUMMARY | 2024-03-13 16:15 | XMS_ITS | Encounter Summary ---
Author Organization [facility] Address [address] [place] [address] Phone Care Team Providers Care Grinder Lap Name Role Phone Jeff Strickland MD Primary Care Provider Chan Nicholas MD Unavailable [phone] Alan Mccall MD Unavailable [phone] Lorna Lantigua MD Unavailable [phone] Juliette Savage RN Unavailable Pepito Haro MD PhD Unavailable [phone] Solange Guido MD Unavailable [phone] Encounter Details Date Type Department Care Team (Late st Contact Info) Description 05/02/2021 Ophth Exam [facility] Ophthalmology [address] [place] [address] 1st [place] [id number] Corina Ventura MD PhD [address] [address] Social History Tobacco Use Types [...] on file Legal Sex Male 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 Gender Identity Not on file Sexual [...] COVID: Suspected 03/24/2023 03/24/2023 03/24/2023 5:45 PM PLANT PROTECTION SUPERVISOR COVID19 03/24/2023 03/24/2023 04/08/2023 3:06 AM PLANT PROTECTION SUPERVISOR COVID: Recovered Comment:Added based on recent COVID [...] arcade Normal Periphery Normal Normal Care Teams Grinder Lap Relationship Specialty Start Date End Date Jeff Strickland MD [address] [place] [address] PCP - General Family Medicine 04/02/18 Chan Nicholas MD [address] [place] [address] Consulting Physician Gastroenterology 11/24/18 Alan Mccall MD [address] [place] [address] Referring Physician Nephrology 11/24/18 Lorna Lantigua MD [address] [place] [address] Consulting Physician Cardiology 11/24/18 07/22/23 Juliette Savage, RN [address] [place] [address] Nurse Navigator 06/04/21 03/14/22 Pepito Haro MD PhD [address] [place] [address] Consulting Physician Neurosurgery 12/03/22 Solange Guido MD [address] [facility] [address] [place] [address] Referring Physician Cardiovascular Disease 07/23/23 documented as of this encounter
--- OUTSIDE RECORDS SUMMARY | 2024-03-13 16:15 | XMS_ITS | Clinical Summary ---
Author Organization [facility] Address [address] [place] [address]. [place] [address] [place] [address] Care Team Providers Care Battery Charger Name Role Phone Jeff Strickland MD Primary Care Provider [phone] Allergies Active Allergy Reactions Criticality Noted Date [...] by mouth nightly at bedtime. Active Multiple Vitamins-Glass Wool Blanket Machine Feeder als (PRESERVISION AREDS 2 OR) Take 1 [...] drink = 0.6 oz pur e alcohol) [facility] Utilities Answer Date Recorded In the [...] place to sleep or slept in a fpc (including now)? 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 Author Patient will return to prior living situation and remain independent in ADLs upon discharge from hospital Lifestyle No Alice Rizzo, [facility] Insurance [employer] Advance Directives * Full Code (Latest Code Status on File) Date Activated Date Inactivated Comments 05/02/2023 12:46 AM 05/03/2023 12:26 PM Care Teams Battery Charger Relationship Specialty Start Date End Date Jeff Strickland MD [address] [place] [address] PCP - General FAMILY PRACTICE 02/22/23
--- OUTSIDE RECORDS SUMMARY | 2024-03-13 16:15 | XMS_ITS | Continuity of Care Document ---
Author Organization [facility] Address [address] [facility] [address] [place] [address] Phone Care Team Providers Care Associate Financial Planner Name Role Phone Olu Payan Unavailable Unavailable [...] Diagnoses Date Provider Providers Copied on Encounter [facility], [place], [place], [id number], tel:[phone] [place] No Information 4 Gladis Olu. [address] [place] [address], [address], [place], [place], [facility], . tel: [phone] [address] [place] [address], [place], [place], [id number], tel:[phone] [place] No Information 4 Genoveva Mcdonald. . Referring Provider: Jeff Strickland [address] [place] [address] [address], [place], [place], [facility]. tel:[phone] [address], [place], [place], [id number], tel:[phone] [place] No Information 4 Gladis Olu. [address] [place] [address], [address], [place], [place], [facility], . tel: [phone] Referring Provider: Yanira Chin [facility] [address], [place], [place], [facility]. tel:[phone] [address] [address], [place], [place], [id number], tel:[phone] [place] No Information 4 Gladis Raines. [address] [place] [address], [address], [place], [place], [facility], . tel: [phone] Referring Provider: Yanira Chin [facility] [address], [place], [address]. tel:[phone], [id number], tel:[phone] [place] No Information 4 Jacinto Fairchild. . Referring Provider: Yanira Chin [facility] [address], [place], [address]. tel:[phone] [address], [place], [place], [id number], [place] tel:[phone] [place] No Information 4 Jacinto Fairchild. . Referring Provider: Jeff Strickland [address] [place] [address] [address], [place], [place], [facility]. tel:[phone], [id number], tel:[phone] [place] No Information 4 Genoveva Mcdonald. . Referring Provider: Jeff Strickland [address] [place] [address] [address], [place], [place], [facility]. tel:[phone], [id number], tel:[phone] [place] No Information 4 Gladis Raines. [address] [facility], [address], [place], [facility], . tel: [phone] Referring Provider: Jeff Strickland [address] [place] [address] [address], [place], [place], [facility]. tel:[phone], [id number], tel:[phone] [place] No Information 0 4 Genoveva Mcdonald. . Referring Provider: Jeff Strickland [address] [place] [address] [address], [place], [place], [facility]. tel:[phone], [place], [id number], [place] tel:[phone] [place] No Information 0 4 Gladis Raines. [address] [facility], [address], [place], [place], [facility], . tel: [phone] Referring Provider: Jeff Strickland [address] [place] [address] [address], [place], [place], [facility]. tel:[phone] Family History Family Member Type Diagnosis Age At Onset No Information Payers Payer name Insurance type Covered democrat ID Diego suarez(ernesto Hadley [id number] Social History Type Description Quantity Date Captured [...]
--- OUTSIDE RECORDS SUMMARY | 2024-03-13 16:15 | XMS_ITS ---
Author Organization [facility] Address [address] [place] [address] Care Team Providers Care Medical Lab Scientist Name Role Phone Deandre Bojorquez MD Unavailable [phone] Jeff Strickland MD Primary Care Provider [phone] Transplant Episode Kidney Candidate [facility] ([place], [place]) - [facility] Center waitlisted on 05/06/2022 Marked as Inactive on 12/19/2022 Reason: Temporarily too Sick Kidney CoordinatorSavanna Edwards RN Phone: N/A Fax: N/A Email: N/A Scores Score Value Updated Exceptions/Reas ons CPRA Not available EPTS (Calc) 95 03/13/2024 [place] Organ Diagnosis Organ Primary Contributory Kidney Diabetes Mellitus - Type II Hype rtensive Nephrosclerosis Care Team Name Role Phone Fax Email Savanna Edwards RN Kidney Coordinator N/A N/A N/A Alan Mccall MD Referring Physician N/A N/A N/A Anjali Mott LMSW Photo Mask Processor N/A N/A N/A Millie Lindquist Estate Planning Counselor N/A N/A N/A Events Pre-Transplant Referred: 12/05/2021 Evaluation began: 12/13/2021 Committee: 05/02/2022 UNOS qualified: 01/17/2020 Center waitlisted: 05/06/2022 Dialysis History Dialysis History Start End Type Comments Center 01/17/2020 Peritoneal [facility] Information Center Phone Fax Address [facility] [phone] [address] [place] [phone]
[2024-03-13] MEDS: SODIUM CHLORIDE 0.9% IV 1,000 ML 999 ML IV CONT (16:40)
[2024-03-13 16:56] LABS: Lactic Acid Reflex 1.8 mmol/L (0.7-2.0)
[2024-03-13 16:57] LABS: Lipase 80 U/L (23-300); Magnesium 1.2 mg/dL (1.6-2.3); Phosphorus 6.8 mg/dL (2.5-4.5)
--- NOTE | 2024-03-13 16:57 | ED.GENADULT ---
HPI - General Adult General Chief complaint: Unspecified <Speedy Hunter MD - Last Filed: 03/13/24 19:19> Stated complaint: accidentally took 2 Ativan <Speedy Hunter MD - Last Filed: 03/13/24 19:19> Time Seen by Provider: 03/13/24 16:10 <Speedy Hunter MD - Last Filed: 03/13/24 19:19> History of Present Illness HPI narrative: This is a 69-year-old male with multiple medical problems presenting ED with chief complaint of taking two Ativan last night. Patient does not know why he took 2 Ativan but this is happened in the past. He slept through the night but today he feels rundown and tired. He feels weaker than usual and he is dizzy when he stands up. He is complaining of chest pain that is sharp that radiates from 1 side to the other and is worse with movement. This is a chronic problem and he has been evaluated in the emergency room and by Cardiology multiple times. Patient is denying fevers chills shortness breath abdominal pain nausea vomiting diarrhea. <Speedy Hunter MD - Last Filed: 03/13/24 19:19> Related Data Home medications: Home Medications ?Medication ?Instructions ?Recorded ?Confirmed ?Last Taken ?Type aspirin 81 mg tablet,delayed 81 mg PO DAILY 02/01/19 03/10/24 09/02/23 08:00 History release (Sami Low Dose Aspirin) vit C 250 mg-vit E 200 unit-zinc 1 tablet PO Q12H 02/01/19 03/10/24 09/02/23 08:00 History 12.5 mg-copper 1 [id number] tablet (ICaps AREDS2 (copper citrate)) blood sugar diagnostic (OneTouch 05/14/19 03/10/24 Unknown History Ultra Blue Test Strip) carvedilol 25 mg tablet (Coreg) 25 mg PO Q12H 09/06/19 03/10/24 09/02/23 08:00 History insulin glargine 100 unit/mL (3 30 unit subcut Q12H 10/12/21 03/10/24 09/02/23 08:00 History mL) subcutaneous pen (Basaglar KwikPen U-100 Insulin) lisinopril 20 mg tablet 20 mg PO BID 08/12/22 03/10/24 09/02/23 08:00 History cholecalciferol (vitamin D3) 125 125 mcg PO DAILY 10/01/22 03/10/24 09/01/23 History mcg (5,000 unit) tablet (Vitamin D3) folic acid 0.8 mg-vit B comp with 1 tablet PO DAILY 10/01/22 03/10/24 09/01/23 13:00 History [id number]-[id number] D3 2,000 unit tablet (Dialyvite 800-Ultra D) furosemide 80 mg tablet 160 mg PO BID 10/01/22 03/10/24 09/24/23 History insulin aspart U-100 100 unit/mL See Rx Instructions .Route .COMPLEX 10/01/22 03/10/24 09/02/23 08:00 History (3 mL) subcutaneous pen (Novolog FlexPen U-100 Insulin aspart) diphenhydramine 25 2 tablet PO HS 03/12/23 03/10/24 09/01/23 21:00 History mg-acetaminophen 500 mg tablet (Tylenol PM Extra Strength) atorvastatin 80 mg tablet 80 mg PO HS 09/02/23 03/10/24 09/01/23 21:00 History diltiazem HCl 120 mg 120 mg PO Q12H 09/02/23 03/10/24 09/02/23 08:00 History capsule,extended release 12 hr levothyroxine 112 mcg tablet 112 mcg PO DAILY 09/02/23 03/10/24 09/02/23 08:00 History clonidine 0.2 mg/24 hr weekly 1 patch transdermal WEEKLY 09/25/23 03/10/24 09/19/23 History transdermal patch hydralazine 10 mg tablet 20 mg PO TID 10/15/23 03/10/24 Unknown History tadalafil 5 mg tablet 5 mg DAILY 11/15/23 03/10/24 Unknown History <Speedy Hunter MD - Last Filed: 03/13/24 19:19> Allergies/adverse reactions: Allergies Allergy/AdvReac Type Severity Reaction Status Date / Time No Known Allergies Allergy Verified 03/13/24 14:59 <Speedy Hunter MD - Last Filed: 03/13/24 19:19> [facility] Past Medical History Medical History: Medical History C. difficile colitis Arthritis Kidney stones Benign prostatic hyperplasia Coronary artery disease End-stage renal disease on peritoneal dialysis Obstructive sleep apnea Insulin dependent type 2 diabetes mellitus Renal cell carcinoma Status post partial left nephrectomy. Dyslipidemia Clostridium difficile infection Gastroesophageal reflux disease Depression with anxiety Hypothyroidism Cirrhosis Pituitary tumor Status post resection. Anemia Chronic diastolic (congestive) heart failure Hypertension <Speedy Hunter MD - Last Filed: 03/13/24 19:19> Surgical History Surgical History: Surgical History History of open reduction and internal fixation (ORIF) procedure (11/2022) Screw fixation of sternal fracture. History of colonoscopy with polypectomy History of umbilical hernia repair History of inguinal hernia repair History of coronary artery stent placement History of cardiac catheterization (08/2020) Stent x2 to the LAD. History of arthroplasty of right knee History of cataract extraction History of pituitary surgery (11/2021) History of partial nephrectomy Partial left nephrectomy for renal cell carcinoma. History of cholecystectomy (2007) <Speedy Hunter MD - Last Filed: 03/13/24 19:19> Family History Family History: Family History Mother Hypertension Cerebrovascular accident Aneurysm Father Family history of malignant neoplasm Carcinoma of colon <Speedy Hunter MD - Last Filed: 03/13/24 19:19> Social History Social History: Social History Social History: Surrogate medical decision maker: Harriet Carl, spouse. Code status: Full code. Smoking status: Never smoker Second hand tobacco smoke exposure: No Alcohol intake: never Alcohol use details: rare, holidays Substance use: never Substance use type: does not use Current Housing: Decline to Answer Concerned About Future Housing: Decline to Answer Difficulty Paying Gas/Electric Bills: Decline to Answer Difficulty Paying for Meds: Decline to Answer Currently Unemployed: Decline to Answer Education: Decline to Answer Difficulty w/ Childcare or Family Care: Decline to Answer Living arrangements: with family Additional living arrangements comments: Lives with spouse in [place]. Occupation/Education: retired Additional occupation/education comments: [employer]. Gender identity (if verbalized by the patient): Male Sexual Orientation (if Verbalized by the Patient): Straight or Heterosexual Spiritual care concerns: No Agree to blood products: Yes <Speedy Hunter MD - Last Filed: 03/13/24 19:19> Exam Narrative: APPEARANCE: No apparent distress. Head: atraumatic. EYES: EOMI, NOSE: Atraumatic NECK: Trachea midline RESPIRATORY: No increased rate of breathing clear to auscultation CARDIOVASCULAR: RRR, no peripheral edema ABDOMINAL: Non-distended soft nontender no guarding rebound MUSCULOSKELETAl: No obvious deformities NEURO: Alert. Moving 4/4 extremities SKIN:: Warm, dry. Normal color PSYCHIATRIC: Normal affect <Speedy Hunter MD - Last Filed: 03/13/24 19:19> Course Course Emergency Course: Patient signed out to me pending call back from the hospitalist for admission. Patient will be admitted to observation on the 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 care unit floor for his elevated troponin with chronic chest pain but no EKG evidence of acute ischemic changes as well as multiple electrolyte derangements requiring repletion of his magnesium and potassium. Nephrology was consulted for assistance in management due to his electrolyte derangements and chronic peritoneal dialysis. Spoke to [place] the [facility] covering the hospitalist team who accepted the admission to the hospital this time. <Sascha Bill MD - Last Filed: 03/13/24 19:44> Vital Signs Vital signs: Vital Signs Temperature 36.9 C 03/13/24 14:52 Pulse Rate 65 03/13/24 14:52 Respiratory Rate 18 03/13/24 14:52 Blood Pressure 121/55 L 03/13/24 14:52 Pulse Oximetry 98 03/13/24 14:52 Oxygen Delivery Room Air 03/13/24 14:52 Temperature 36.9 C 03/13/24 14:52 Pulse Rate 71 03/13/24 18:17 Respiratory Rate 19 03/13/24 18:17 Blood Pressure 160/74 H 03/13/24 18:17 Pulse Oximetry 99 03/13/24 18:16 Oxygen Delivery Room Air 03/13/24 14:52 <Speedy Hunter MD - Last Filed: 03/13/24 19:19> Vital Signs Temperature 36.9 C 03/13/24 14:52 Pulse Rate 65 03/13/24 14:52 Respiratory Rate 18 03/13/24 14:52 Blood Pressure 121/55 L 03/13/24 14:52 Pulse Oximetry 98 03/13/24 14:52 Oxygen Delivery Room Air 03/13/24 14:52 Temperature 36.9 C 03/13/24 14:52 Pulse Rate 71 03/13/24 18:17 Respiratory Rate 19 03/13/24 18:17 Blood Pressure 160/74 H 03/13/24 18:17 Pulse Oximetry 99 03/13/24 18:16 Oxygen Delivery Room Air 03/13/24 14:52 <Sascha Bill MD - Last Filed: 03/13/24 19:44> Medical Decision Making MDM Narrative Medical decision making narrative: -Course: 69-year-old male presenting with multiple complaints. His initial complaint being that he took 2 Ativan last night which is medically insignificant. Outside of that he has been having increased fatigue and weakness. He notes that he feels weak standing up and also becomes dizzy when he stands. This is been going on for the last several days. He also has his chronic chest pain which he states is unchanged. His workup was significant for Hypomagnesia and hypokalemia. These are being repleted. EKG showed a prolonged QT interval. Troponin elevated at 0.1. Repeat is pending. Patient frequently has elevations but his troponin level is slightly higher than usual. His chest pain is his chronic pleuritic pain which has been described on multiple visits, Will continue to trend. Hemoglobin today of 9.1 from hemoglobin of 10.11 month ago. Patient denies melena or hematochezia. He has a colonoscopy scheduled in May. Patient be placed in observation for correction of his electrolyte abnormalities and cardiac evaluation. -DDX includes but is not limited to: Dehydration, sepsis UTI electrolyte abnormality, ACS pneumonia pneumothorax <Speedy Hunter MD - Last Filed: 03/13/24 19:19> Vital Signs Vital Signs: Vital Signs Temperature 36.9 C 03/13/24 14:52 Pulse Rate 65 03/13/24 14:52 Respiratory Rate 18 03/13/24 14:52 Blood Pressure 121/55 L 03/13/24 14:52 Pulse Oximetry 98 03/13/24 14:52 Oxygen Delivery Room Air 03/13/24 14:52 Temperature 36.9 C 03/13/24 14:52 Pulse Rate 71 03/13/24 18:17 Respiratory Rate 19 03/13/24 18:17 Blood Pressure 160/74 H 03/13/24 18:17 Pulse Oximetry 99 03/13/24 18:16 Oxygen Delivery Room Air 03/13/24 14:52 <Speedy Hunter MD - Last Filed: 03/13/24 19:19> Vital Signs Temperature 36.9 C 03/13/24 14:52 Pulse Rate 65 03/13/24 14:52 Respiratory Rate 18 03/13/24 14:52 Blood Pressure 121/55 L 03/13/24 14:52 Pulse Oximetry 98 03/13/24 14:52 Oxygen Delivery Room Air 03/13/24 14:52 Temperature 36.9 C 03/13/24 14:52 Pulse Rate 71 03/13/24 18:17 Respiratory Rate 19 03/13/24 18:17 Blood Pressure 160/74 H 03/13/24 18:17 Pulse Oximetry 99 03/13/24 18:16 Oxygen Delivery Room Air 03/13/24 14:52 <Sascha Bill MD - Last Filed: 03/13/24 19:44> Lab Data Result diagrams: 03/13/24 15:05 03/13/24 15:05 <Speedy Hunter MD - Last Filed: 03/13/24 19:19> Labs: Lab Results 03/13/24 03/13/24 03/13/24 Range/Units 15:05 16:41 16:53 WBC 8.4 (4.5-10.0) K/mm3 RBC 2.99 L (4.6-6.20) M/mm3 Hgb 9.1 L (14.0-18.0) g/dL Hct 27.9 L (42.0-52.0) % MCV 93.3 (80-100) fl MCH 30.4 (26-34) pg MCHC 32.6 (32-36) g/dl RDW 15.9 H (11.5-14.5) % Plt Count 141 L (150-375) k/mm3 MPV 11.1 H (7.4-10.4) fl Immature Gran % (Auto) 1.9 H (0-0.5) % Neut % (Auto) 79.2 H (45.5-73.1) % Lymph % (Auto) 8.1 L (18.3-44.2) % [place] % (Auto) 10.5 H (2.6-8.5) % Eos % (Auto) 0.2 (0-4.4) % Baso % (Auto) 0.1 L (0.2-1.2) % Lymph # (Auto) 0.68 L (0.9-3.2) K/mm3 [place] # (Auto) 0.9 H (0.1-0.6) K/mm3 Eos # (Auto) 0.0 (0-0.3) K/mm3 Baso # (Auto) 0.0 (0.0-0.1) K/mm3 Abs Immat Gran (auto) 0.16 H (0.00-0.031) K/mm3 Absolute Neuts (auto) 6.6 (1.3-6.7) K/mm3 Absolute Nucleated RBC 0.000 (0.0-0.012) K/mm3 Nucleated RBC % 0.0 (0.0-0.2) % PT 13.9 (11.1-14.7) Seconds INR 1.0 APTT 31.3 (22.3-36.8) Seconds D-Dimer 0.38 (<0.48) ug/mL Sodium 133 L (137-145) mmol/L Potassium 3.1 L (3.4-5.0) mmol/L Chloride 92 L (98-107) mmol/L Carbon Dioxide 27 (22-30) mmol/L Anion Gap 14 H (4-12) mmol/L BUN 43 H (9-20) mg/dL Creatinine 9.64 H (0.7-1.3) mg/dL Estim Creat Clear Calc 9 ml/min Estimated GFR 5 L (59 - ) Glucose 171 H (65-110) mg/dL Lactic Acid 1.8 (0.7-2.0) mmol/L Calcium 7.8 L (8.4-10.2) mg/dL Phosphorus 6.8 H (2.5-4.5) mg/dL Magnesium 1.2 L (1.6-2.3) mg/dL Total Bilirubin 0.5 (0.2-1.3) mg/dL AST 23 (17-59) U/L ALT 17 (6-50) U/L Alkaline Phosphatase 67 (38-126) U/L Troponin I 0.107 H* (0.000-0.034) ng/mL Total Protein 6.0 L (6.3-8.2) g/dL Albumin 3.1 L (3.5-5.1) g/dL Lipase 80 (23-300) U/L TSH (Reflex) 1.390 (0.465-4.68) uIU/mL Influenza A (RT-PCR) Negative (Negative) Influenza B (RT-PCR) Negative (Negative) RSV (RT-PCR) Negative (Negative) SARS-CoV-2 RNA (RT-PCR) Negative (Negative) <Speedy Hunter MD - Last Filed: 03/13/24 19:19> Lab Results 03/13/24 03/13/24 03/13/24 Range/Units 15:05 16:41 16:53 WBC 8.4 (4.5-10.0) K/mm3 RBC 2.99 L (4.6-6.20) M/mm3 Hgb 9.1 L (14.0-18.0) g/dL Hct 27.9 L (42.0-52.0) % MCV 93.3 (80-100) fl MCH 30.4 (26-34) pg MCHC 32.6 (32-36) g/dl RDW 15.9 H (11.5-14.5) % Plt Count 141 L (150-375) k/mm3 MPV 11.1 H (7.4-10.4) fl Immature Gran % (Auto) 1.9 H (0-0.5) % Neut % (Auto) 79.2 H (45.5-73.1) % Lymph % (Auto) 8.1 L (18.3-44.2) % [place] % (Auto) 10.5 H (2.6-8.5) % Eos % (Auto) 0.2 (0-4.4) % Baso % (Auto) 0.1 L (0.2-1.2) % Lymph # (Auto) 0.68 L (0.9-3.2) K/mm3 [place] # (Auto) 0.9 H (0.1-0.6) K/mm3 Eos # (Auto) 0.0 (0-0.3) K/mm3 Baso # (Auto) 0.0 (0.0-0.1) K/mm3 Abs Immat Gran (auto) 0.16 H (0.00-0.031) K/mm3 Absolute Neuts (auto) 6.6 (1.3-6.7) K/mm3 Absolute Nucleated RBC 0.000 (0.0-0.012) K/mm3 Nucleated RBC % 0.0 (0.0-0.2) % PT 13.9 (11.1-14.7) Seconds INR 1.0 APTT 31.3 (22.3-36.8) Seconds D-Dimer 0.38 (<0.48) ug/mL Sodium 133 L (137-145) mmol/L Potassium 3.1 L (3.4-5.0) mmol/L Chloride 92 L (98-107) mmol/L Carbon Dioxide 27 (22-30) mmol/L Anion Gap 14 H (4-12) mmol/L BUN 43 H (9-20) mg/dL Creatinine 9.64 H (0.7-1.3) mg/dL Estim Creat Clear Calc 9 ml/min Estimated GFR 5 L (59 - ) Glucose 171 H (65-110) mg/dL Lactic Acid 1.8 (0.7-2.0) mmol/L Calcium 7.8 L (8.4-10.2) mg/dL Phosphorus 6.8 H (2.5-4.5) mg/dL Magnesium 1.2 L (1.6-2.3) mg/dL Total Bilirubin 0.5 (0.2-1.3) mg/dL AST 23 (17-59) U/L ALT 17 (6-50) U/L Alkaline Phosphatase 67 (38-126) U/L Troponin I 0.107 H* (0.000-0.034) ng/mL Total Protein 6.0 L (6.3-8.2) g/dL Albumin 3.1 L (3.5-5.1) g/dL Lipase 80 (23-300) U/L TSH (Reflex) 1.390 (0.465-4.68) uIU/mL Influenza A (RT-PCR) Negative (Negative) Influenza B (RT-PCR) Negative (Negative) RSV (RT-PCR) Negative (Negative) SARS-CoV-2 RNA (RT-PCR) Negative (Negative) <Sascha Bill MD - Last Filed: 03/13/24 19:44> Discharge Plan Discharge Clinical Impression: Fatigue, Elevated troponin, Hypomagnesemia, Acute hypokalemia <Speedy Hunter MD - Last Filed: 03/13/24 19:19> Patient Disposition: Still a Patient <Speedy Hunter MD - Last Filed: 03/13/24 19:19> Condition: Stable <Speedy Hunetr MD - Last Filed: 03/13/24 19:19> Patient Language: Albanian <Speedy Hunter MD - Last Filed: 03/13/24 19:19> Prescriptions: No Action tadalafil 5 mg tablet 5 mg DAILY aspirin [Sami Low Dose Aspirin] 81 mg Tablet,Delayed Release (Dr/Ec) 81 mg PO DAILY ICaps AREDS2 (copper citrate) 250 mg-200 unit -12.5 mg-1 mg Tablet 1 tablet PO Q12H fenofibrate nanocrystallized 145 mg tablet 145 mg PO DAILY Qty: 30 0RF carvedilol [Coreg] 25 mg tablet 25 mg PO Q12H (DME) pen needle, diabetic [BD Ultra-Fine Micro Pen Needle] 32 gauge x 1/4 needle See Rx Instructions .ROUTE .MEDSUPPLY Qty: 200 11RF Rx Instructions: inject five times daily insulin glargine [Basaglar KwikPen U-100 Insulin] 100 unit/mL (3 mL) insulin pen 30 unit subcut Q12H lisinopril 20 mg tablet 20 mg PO BID lansoprazole 30 mg capsule,delayed release(DR/EC) 30 mg PO BID Qty: 60 3RF metoclopramide HCl [Reglan] 10 mg tablet 10 mg PO BID Qty: 60 3RF (DME) OneTouch Ultra Blue Test Strip Strip See Rx Instructions .ROUTE .MEDSUPPLY Rx Instructions: Test blood sugar three times per day. clonidine 0.2 mg/24 hr patch weekly 1 patch transdermal WEEKLY insulin aspart U-100 [Novolog FlexPen U-100 Insulin] 100 unit/mL (3 mL) insulin pen See Rx Instructions .ROUTE .COMPLEX Rx Instructions: sliding scale cholecalciferol (vitamin D3) [Vitamin D3] 125 mcg (5,000 unit) Tablet 125 mcg PO DAILY Dialyvite 800-Ultra D 0.8-2,000 mg-unit Tablet 1 tablet PO DAILY furosemide 80 mg Tablet 160 mg PO BID diphenhydramine-acetaminophen [Tylenol PM Extra Strength] 25-500 mg Tablet 2 tablet PO HS diltiazem HCl 120 mg capsule,extended release 12 hr 120 mg PO Q12H atorvastatin 80 mg tablet 80 mg PO HS levothyroxine 112 mcg tablet 112 mcg PO DAILY (DME) blood-glucose meter [[facility] Ultra2 Meter] Misc See Rx Instructions .ROUTE .MEDSUPPLY Qty: 1 0RF Rx Instructions: As directed (DME) lancets [OneTouch Delica Lancets] 30 gauge misc See Rx Instructions .ROUTE .MEDSUPPLY Qty: 100 3RF Rx Instructions: As directed hydralazine 10 mg tablet 20 mg PO TID lorazepam [Ativan] 0.5 mg tablet 0.5 mg PO HS PRN (Reason: Anxiety) Qty: 30 0RF gabapentin 300 mg capsule 300 mg PO DAILY Qty: 90 5RF hydrocodone-acetaminophen 5-325 mg tablet 1 tablet PO Q4H PRN (Reason: pain) Qty: 30 0RF <Speedy Hunter MD - Last Filed: 03/13/24 19:19> Follow-up/Referrals: Jeff Strickland MD [Primary Care Provider] - <Speedy Hunter MD - Last Filed: 03/13/24 19:19>
[2024-03-13 17:10] LABS: Troponin I 0.107 ng/mL (0.000-0.034)
[2024-03-13 17:16] LABS: D Dimer 0.38 ug/mL (<0.48)
[2024-03-13 17:33] LABS: Influenza A QL RT-PCR Negative (Negative); Influenza B QL RT-PCR Negative (Negative); RSV RNA, RT-PCR Negative (Negative); SARS-CoV-2 RNA PCR Negative (Negative)
[2024-03-13] MEDS: MAGNESIUM SULF 2 GM/WATER 50ML 2 GM/50 ML BAG IVPB (18:14)
[2024-03-13] MEDS: POTASSIUM CHLORIDE 20 MEQ PACKET (FOR LIQUID) 40 MEQ PO (18:15)
--- NOTE | 2024-03-13 19:50 | PM.IMHP ---
H&P: HPI History of Present Illness Date/Time: 03/13/24 19:50 Chief Complaint: Multiple complaints. Narrative: This is a 69-year-old male with end-stage renal disease on peritoneal dialysis, hypertension, dyslipidemia, congestive heart failure, coronary artery disease with history of stents, obstructive sleep apnea, insulin-dependent type 2 diabetes mellitus, hypothyroidism, benign prostatic hyperplasia, Clostridium difficile colitis, renal cell carcinoma, depression, anxiety, and other comorbidities who presented to the emergency department via private vehicle with multiple complaints. The patient and his provide the following history. He tells me that he has ?felt off? for awhile with symptoms to include fatigue, lightheadedness and dizziness with position changes, and a steady, burning pain throughout the anterior upper chest which has been going on for some time. The last 1 week however his symptoms seem to have intensified. Last night he accidentally took two Ativan instead of one and he woke up this morning feeling disoriented and more weak than usual. The disorientation has gone away. He has been evaluated by Cardiology and Gastroenterology for the chronic burning chest pain and apparently saw his charm filter operator helper at [facility] couple of weeks ago and was told everything was okay. A couple of weeks ago he saw Gastroenterology who change his PPI to lansoprazole 30 mg twice daily and started metoclopramide 10 mg at bedtime for gastroparesis symptoms. He is supposed to follow-up with them in the next couple of months. He denies fever, chills, sweats, syncope, near syncope, focal weakness, paresthesias, facial droop, difficulty speaking and swallowing, headache, neck ache, sinus congestion, sore throat, cough, exertional chest pain, palpitations, shortness of breath, cough, vomiting, and calf pain. He urinates very infrequently and has not had any urinary symptoms. It sounds as though he has issues with intermittent loose stools and constipation for which he will occasionally take Imodium or a laxative as needed. In the ED: He was afebrile on arrival with stable vital signs. Labs were significant for WBC count of 8.4, hemoglobin 9.1, platelet 141, sodium 133, potassium 3.1, chloride 92, anion gap 14, BUN 43, creatinine 9.60, lactic acid 1.8, calcium 7.8, phosphorus 6.8, magnesium 1.2, troponin 0.107, TSH 1.390. He was negative for influenza, RSV, and COVID. Chest x-ray showed no focal infiltrate or effusion. EKG showed sinus rhythm with left anterior fascicular block and prolonged QT interval with a QTC of 495. He was given magnesium sulfate 2 g and potassium chloride 40 mEq and he is being admitted in this setting for closer monitoring and evaluation. Review of Systems Review of Systems: 12 systems were reviewed and are negative except for as per HPI. FORMERLY [facility], [facility] Past Medical History Medical History C. difficile colitis Arthritis Kidney stones Benign prostatic hyperplasia Coronary artery disease End-stage renal disease on peritoneal dialysis Obstructive sleep apnea Insulin dependent type 2 diabetes mellitus Renal cell carcinoma Status post partial left nephrectomy. Dyslipidemia Clostridium difficile infection Gastroesophageal reflux disease Depression with anxiety Hypothyroidism Cirrhosis Pituitary tumor Status post resection. Anemia Chronic diastolic (congestive) heart failure Hypertension Surgical History Surgical History History of open reduction and internal fixation (ORIF) procedure (11/2022) Screw fixation of sternal fracture. History of colonoscopy with polypectomy History of umbilical hernia repair History of inguinal hernia repair History of coronary artery stent placement History of cardiac catheterization (08/2020) Stent x2 to the LAD. History of arthroplasty of right knee History of cataract extraction History of pituitary surgery (11/2021) History of partial nephrectomy Partial left nephrectomy for renal cell carcinoma. History of cholecystectomy (2007) Family History Family History Mother Hypertension Cerebrovascular accident Aneurysm Father Family history of malignant neoplasm Carcinoma of colon Social History Social History (Updated 03/13/24 @ 21:50 by Medina Boston PA-C) Social History: Surrogate medical decision maker: Harriet Carl, spouse. Code status: Full code. Smoking status: Never smoker Second hand tobacco smoke exposure: No Alcohol intake: never Alcohol use details: rare, holidays Substance use: never Substance use type: does not use Current Housing: Decline to Answer Concerned About Future Housing: Decline to Answer Difficulty Paying Gas/Electric Bills: Decline to Answer Difficulty Paying for Meds: Decline to Answer Currently Unemployed: Decline to Answer Education: Decline to Answer Difficulty w/ Childcare or Family Care: Decline to Answer Living arrangements: with family Additional living arrangements comments: Lives with spouse in [place]. Occupation/Education: retired Additional occupation/education comments: [employer]. Spiritual care concerns: No Agree to blood products: Yes Meds Home Medications and Allergies Home Medications ?Medication ?Instructions ?Recorded ?Confirmed ?Type blood-glucose meter (OneTouch #1 ea 12/23/18 03/10/24 Rx Ultra2 Meter) lancets 30 gauge (OneTouch Delica #100 ea 12/23/18 03/10/24 Rx Lancets) aspirin 81 mg tablet,delayed 81 mg PO DAILY 02/01/19 03/10/24 History release (Sami Low Dose Aspirin) vit C 250 mg-vit E 200 unit-zinc 1 tablet PO Q12H 02/01/19 03/10/24 History 12.5 mg-copper 1 [id number] tablet (ICaps AREDS2 (copper citrate)) blood sugar diagnostic (OneTouch 05/14/19 03/10/24 History Ultra Blue Test Strip) carvedilol 25 mg tablet (Coreg) 25 mg PO Q12H 09/06/19 03/10/24 History pen needle, diabetic 32 gauge x #200 ea 09/06/19 03/10/24 Rx 1/4 (BD Ultra-Fine Micro Pen Needle) insulin glargine 100 unit/mL (3 30 unit subcut Q12H 10/12/21 03/10/24 History mL) subcutaneous pen (Basaglar KwikPen U-100 Insulin) lisinopril 20 mg tablet 20 mg PO BID 08/12/22 03/10/24 History cholecalciferol (vitamin D3) 125 125 mcg PO DAILY 10/01/22 03/10/24 History mcg (5,000 unit) tablet (Vitamin D3) folic acid 0.8 mg-vit B comp with 1 tablet PO DAILY 10/01/22 03/10/24 History C-[id number]-umhfyzg D3 2,000 unit tablet (Dialyvite 800-Ultra D) furosemide 80 mg tablet 160 mg PO BID 10/01/22 03/10/24 History insulin aspart U-100 100 unit/mL See Rx Instructions .Route .COMPLEX 10/01/22 03/10/24 History (3 mL) subcutaneous pen (Novolog FlexPen U-100 Insulin aspart) diphenhydramine 25 2 tablet PO HS 03/12/23 03/10/24 History mg-acetaminophen 500 mg tablet (Tylenol PM Extra Strength) fenofibrate nanocrystallized 145 145 mg PO DAILY #30 tabs 06/09/23 03/10/24 Rx mg tablet atorvastatin 80 mg tablet 80 mg PO HS 09/02/23 03/10/24 History diltiazem HCl 120 mg 120 mg PO Q12H 09/02/23 03/10/24 History capsule,extended release 12 hr levothyroxine 112 mcg tablet 112 mcg PO DAILY 09/02/23 03/10/24 History clonidine 0.2 mg/24 hr weekly 1 patch transdermal WEEKLY 09/25/23 03/10/24 History transdermal patch hydralazine 10 mg tablet 20 mg PO TID 10/15/23 03/10/24 History tadalafil 5 mg tablet 5 mg DAILY 11/15/23 03/10/24 History lorazepam 0.5 mg tablet (Ativan) 0.5 mg PO HS PRN Anxiety #30 tabs 11/27/23 03/10/24 Rx lansoprazole 30 mg capsule,delayed 30 mg PO BID #60 caps 02/25/24 03/10/24 Rx release metoclopramide HCl 10 mg tablet 10 mg PO BID #60 tabs 02/25/24 03/10/24 Rx (Reglan) gabapentin 300 mg capsule 300 mg PO DAILY #90 caps 02/27/24 03/10/24 Rx hydrocodone 5 mg-acetaminophen 325 1 tablet PO Q4H PRN pain #30 tabs 03/01/24 03/10/24 Rx mg tablet Allergies Allergy/AdvReac Type Severity Reaction Status Date / Time No Known Allergies Allergy Verified 03/13/24 21:21 Vital Signs Vital Signs - 24 hr 03/13/24 14:52 03/13/24 16:03 03/13/24 16:04 Temperature 98.5 F Pulse Rate 65 65 64 Respiratory Rate 18 13 17 Blood Pressure 121/55 L 146/62 H Pulse Oximetry 98 98 98 Oxygen Delivery Room Air 03/13/24 16:15 03/13/24 16:50 03/13/24 17:22 Temperature Pulse Rate 66 63 58 L Respiratory Rate 15 13 15 Blood Pressure Pulse Oximetry 98 99 Oxygen Delivery 03/13/24 17:30 03/13/24 17:31 03/13/24 18:01 Temperature Pulse Rate 62 63 63 Respiratory Rate 12 11 L 14 Blood Pressure 177/85 H 155/74 H Pulse Oximetry 100 97 Oxygen Delivery 03/13/24 18:02 03/13/24 18:15 03/13/24 18:16 Temperature Pulse Rate 63 63 63 Respiratory Rate 13 13 13 Blood Pressure 149/71 H Pulse Oximetry 99 Oxygen Delivery 03/13/24 18:17 Temperature Pulse Rate 71 Respiratory Rate 19 Blood Pressure 160/74 H Pulse Oximetry Oxygen Delivery Exam Narrative: General: Well-developed, nontoxic-appearing male in the semi-Maharaj position in bed. Weight: 123 kg. BMI: 41.2. HEENT: PERRL, EOMI. Sclera anicteric. Oral mucosa moist. Neck: Supple. Full lux. No JVD. Respiratory: Lungs are clear to auscultation bilaterally. Cardiovascular: Regular rate and rhythm with S1-S2. Gastrointestinal: Abdomen is soft, nontender, and nondistended with positive bowel sounds. PD catheter in the right abdomen with clean, dry, and intact dressing. Skin: Warm and dry. No rash or lesions on limited exam. Extremities: No cyanosis or clubbing. Trace darling ankle edema bilaterally. No palpable knots or cords. Radial and pedal pulses intact. Neurological: Alert. Cranial nerves 2-12 are grossly intact. Generalized weakness without gross focal findings. Psychiatric: Pleasant and cooperative with appropriate mood and affect. H&P: Results Labs Labs: Short CBC 03/13/24 Range/Units 15:05 WBC 8.4 (4.5-10.0) K/mm3 Hgb 9.1 L (14.0-18.0) g/dL Hct 27.9 L (42.0-52.0) % Plt Count 141 L (150-375) k/mm3 BMP 03/13/24 15:05 Sodium 133 L Potassium 3.1 L Chloride 92 L Carbon Dioxide 27 BUN 43 H Creatinine 9.64 H Glucose 171 H Calcium 7.8 L Cardiac Enzymes 03/13/24 Range/Units 16:41 Troponin I 0.107 H* (0.000-0.034) ng/mL Liver Function 03/13/24 Range/Units 15:05 Total Bilirubin 0.5 (0.2-1.3) mg/dL AST 23 (17-59) U/L ALT 17 (6-50) U/L Alkaline Phosphatase 67 (38-126) U/L Albumin 3.1 L (3.5-5.1) g/dL Impressions Chest X-Ray 03/13/24 15:34 IMPRESSION: No focal infiltrate or effusion. Assessment and Plan Assessment and plan (1) Elevated troponin: Code(s): R79.89 - Other specified abnormal findings of blood chemistry Status: Acute (2) Electrolyte abnormality: Code(s): E87.8 - Other disorders of electrolyte and fluid balance, not elsewhere classified Status: Acute (3) End-stage renal disease on peritoneal dialysis: Code(s): N18.6 - End stage renal disease; Z99.2 - Dependence on renal dialysis Status: Chronic (4) Normocytic anemia: Code(s): D64.9 - Anemia, unspecified Status: Inactive (5) Hypertension: Qualifiers: Hypertension type: primary hypertension Qualified Code(s): I10 - Essential (primary) hypertension Code(s): I10 - Essential (primary) hypertension Status: Chronic (6) Insulin dependent type 2 diabetes mellitus: Code(s): E11.9 - Type 2 diabetes mellitus without complications; Z79.4 - terminal operator (current) use of insulin Status: Acute (7) Hypothyroidism: Code(s): E03.9 - Hypothyroidism, unspecified Status: Acute (8) Gastroesophageal reflux disease: Code(s): K21.9 - Gastro-esophageal reflux disease without esophagitis Status: Acute (9) Obstructive sleep apnea: Code(s): G47.33 - Obstructive sleep apnea (adult) (pediatric) Status: Acute Plan The patient presented to the emergency department with multiple complaints as detailed in HPI. Labs, imaging, EKG, and all reports were personally reviewed. The symptoms have been ongoing for couple of months but seems to have been worse in the past 1 week. With further questioning he reports having back pain and had what sounds like a steroid injection several weeks ago and he was supposed to start physical therapy however he unfortunately injured his left knee with a probable meniscus tear and he has not been able to participate in therapy. He is likely becoming deconditioned due to that. Additionally he has multiple electrolyte abnormalities which are probably playing a role in his weakness. Potassium and magnesium were replaced in the ED and repeat electrolytes have been ordered for this evening to ensure they are improving. PPI could be the cause of his electrolyte issues. His hemoglobin is also lower than what he typically runs thus will check iron studies as well as stool for occult blood; it is my understanding that he is scheduled for colonoscopy in the next several months (alternating constipation and diarrhea) though he has not noticed any dark stools or bright red blood in the stools. Regarding his chronic burning chest pain, he was recently evaluated by his charm filter operator helper and after school tutor as mentioned in HPI. Troponins are elevated but have remained flat and this likely is not indicative of acute coronary rupture and these are likely elevated in the setting of his end-stage renal disease. This morning he was disoriented on awaking which may have been due to the fact that he took an extra dose of Ativan last night. He is compliant with his CPAP. Exam is nonfocal and he is alert and oriented at this time. He has not had any issues with hypoglycemia. Volume status is euvolemic. Continue basal insulin. Initiate sliding scale insulin, Accu-Cheks, and hypoglycemic protocol. TSH was within normal limits. His home medications will be reviewed and resumed as appropriate. Findings and treatment plan were discussed with the patient. Questions were solicited and answered to satisfaction. The patient's medical management will be taken over by the hospitalist team in a.m. Quality VTE Prophylaxis VTE prophylaxis: mechanical ordered and pharmacologic ordered The patient has been admitted under observation status. Hospitalist MIPS Advance Care Plan I have confirmed that the patient's Advanced Care Plan is present, code status is documented, or surrogate decision maker is listed in patient medical record.: Yes Medication Reconciliation I have utilized all available resources to obtain, update and review the patients current medications (includes all prescriptions, OTC, herbals, cannabis, and nutritional supplements).: Yes
--- NOTE | 2024-03-13 20:55 | PC.NURSE ---
This patient, Kendall Carl, was admitted to IMU Room 204-01. Patient/family oriented to hospital policies and general routines including ID bracelet, bed and alarms, visiting hours, pain management, procedures, bathroom and other care routines, personal items, smoking policy, room service/diet, and visiting hours. Information on how to activate the Rapid Response Team has been discussed. Patient/Family are encouraged to report perceived risks to care and to ask questions if they do not understand what they are told or what they should do.
[2024-03-13 21:06] LABS: Troponin I 0.113 ng/mL (0.000-0.034)
[2024-03-13 22:24] LABS: Iron 53 ug/dL (49-181)
[2024-03-13 22:57] LABS: Anion Gap 12 mmol/L (4-12); Blood Urea Nitrogen 43 mg/dL (9-20); Calcium 8.2 mg/dL (8.4-10.2); Carbon Dioxide 24 mmol/L (22-30); Chloride 96 mmol/L (98-107); Estimated CRCL calculation 9 ml/min; Estimated Glomerular Filt Rate 6; Glucose 82 mg/dL (65-110); Potassium 3.7 mmol/L (3.4-5.0); Sodium 132 mmol/L (137-145)
[2024-03-13 23:02] LABS: Hemoglobin A1C 6.6 % (<5.7)
[2024-03-13 23:12] LABS: Percent Iron Saturation 25 % (20-50)
[2024-03-13] MEDS: SALINE 0.65% NAS SOLN 44 ML BTL 1 SPRAY NASAL (23:57)
[2024-03-13] MEDS: HEPARIN SODIUM 5,000 UNITS/ML VIAL 5000 UNITS SUB-Q (23:58)
[2024-03-14] VITALS (18 sets, daily range): BP systolic 149–173; BP diastolic 61–84; PULSE 56–82; RESP 16–20; TEMP 36.7–37.1; O2SAT 94–100
[2024-03-14 00:04] LABS: Folic Acid 17.8 ng/mL (2.76->20)
[2024-03-14 00:31] LABS: Glucose Point of Care 114 mg/dl (65-105)
[2024-03-14 00:42] LABS: IFOB Positive Control Positive; Immunochemical Fecal Occult Bl Positive (N)
[2024-03-14 01:05] LABS: Magnesium 1.4 mg/dL (1.6-2.3)
[2024-03-14 01:20] LABS: Troponin I 0.109 ng/mL (0.000-0.034)
[2024-03-14 01:21] LABS: Toxigenic C. Diff POSITIVE (NEGATIVE)
[2024-03-14] MEDS: LORazepam (*CRX) 0.5 MG TABLET PO (01:59)
[2024-03-14] MEDS: HYDROcodone/acetaminophen (*CRX) 5-325 MG TABLET 1 TAB PO (01:59)
[2024-03-14] MEDS: ONDANSETRON INJ 4 MG/2 ML VIAL IV PUSH (02:04)
[2024-03-14] MEDS: hydrALAZINE 10 MG TABLET 20 MG PO (03:36)
[2024-03-14] MEDS: GABAPENTIN 300 MG CAPSULE PO ×3 (03:36→20:55)
[2024-03-14] MEDS: LEVOTHYROXINE SODIUM 112 MCG TABLET PO (03:36)
[2024-03-14 07:48] LABS: Glucose Point of Care 101 mg/dl (65-105)
[2024-03-14] MEDS: CALCIUM ACETATE 667 MG TABLET 2001 MG PO ×3 (08:49→16:48)
[2024-03-14] MEDS: carvediloL 25 MG TABLET PO ×2 (08:49→20:59)
[2024-03-14] MEDS: OPTI-GEN TAB 1 TABLET PO ×2 (08:50→20:53)
[2024-03-14] MEDS: FUROSEMIDE 80 MG TABLET 160 MG PO ×2 (08:50→16:47)
[2024-03-14] MEDS: ASPIRIN 81 MG ENTERIC TABLET PO (08:50)
[2024-03-14] MEDS: PANTOPRAZOLE 40 MG TABLET PO ×2 (08:50→20:55)
[2024-03-14] MEDS: FIDAXOMICIN 200 MG TABLET PO ×2 (08:50→20:53)
[2024-03-14] MEDS: INSULIN GLARGINE (*BKC) 100 UNITS/ML 30 UNITS SUB-Q ×2 (08:51→20:58)
[2024-03-14] MEDS: lisinopriL 20 MG TABLET PO ×2 (08:51→20:54)
[2024-03-14] MEDS: MAGNESIUM SULF 2 GM/WATER 50ML 2 GM/50 ML BAG IVPB (09:01)
[2024-03-14 09:05] LABS: Hemoglobin 9.1 g/dL (14.0-18.0); Mean Corpuscular HGB Conc 32.5 g/dl (32-36); Mean Corpuscular Volume 95.2 fl (80-100); Platelet Count Result 142 k/mm3 (150-375); Red Blood Count 2.94 M/mm3 (4.6-6.20); White Blood Count 7.7 K/mm3 (4.5-10.0)
[2024-03-14 09:20] LABS: Anion Gap 14 mmol/L (4-12); Blood Urea Nitrogen 48 mg/dL (9-20); Carbon Dioxide 25 mmol/L (22-30); Chloride 96 mmol/L (98-107); Estimated CRCL calculation 8 ml/min; Estimated Glomerular Filt Rate 5; Glucose 130 mg/dL (65-110); Magnesium 1.4 mg/dL (1.6-2.3); Potassium 3.6 mmol/L (3.4-5.0); Sodium 135 mmol/L (137-145)
[2024-03-14 11:01] LABS: Hepatitis B Surface Antigen Negative (Negative)
[2024-03-14 11:18] LABS: Hepatitis B Surface Anti Res Negative
--- NOTE | 2024-03-14 11:41 | P.CONNP_ITS ---
Assessment and Plan Assessment and plan (1) End stage renal disease: Code(s): N18.6 - End stage renal disease Status: Inactive Assessment and Plan: * resume CCPD tonight * follow electrolytes, volume status, and clearance (2) C. difficile colitis: Code(s): A04.72 - Enterocolitis due to Clostridium difficile, not specified as recurrent Status: Acute Assessment and Plan: * as noted by admission testing * started on fidaxomicin * follow clinical symptoms (3) Chronic diastolic (congestive) heart failure: Code(s): I50.32 - Chronic diastolic (congestive) heart failure Status: Chronic Assessment and Plan: * volume status stable * fluid removal with peritoneal dialysis to maintain euvolemia (4) Hypertension: Qualifiers: Hypertension type: primary hypertension Qualified Code(s): I10 - Essential (primary) hypertension Code(s): I10 - Essential (primary) hypertension Status: Chronic Assessment and Plan: * reasonable control * resume home medications * follow trend of hemodynamics (5) Anemia: Code(s): D64.9 - Anemia, unspecified Status: Chronic Assessment and Plan: * due to ESRD * follow trend of H/H * may need Epogen depending on length of hospital stay (6) Diabetes mellitus: Code(s): E11.9 - Type 2 diabetes mellitus without complications Status: Chronic Assessment and Plan: * follow accu-cheks * glycemic control per fur trimmer/hospitalist I will continue to follow patient with you while he remains hospitalized and make further recommendations during his hospital course. Thank you for allowing me to participate in the care this patient. L History of Present Illness Reason for Consult Consult date: 03/14/24 Reason for consult: end stage renal disease Chief Complaint Chief complaint: Multiple electrolyte derangements elevated tropon History of Present Illness Narrative: The patient is a 69-year-old male with a past medical history as outlined below who presented to [facility] Emergency Room with multiple complaints. The patient states that he has not felt like his usual self for the last week if not longer. He reports symptoms of fatigue, lightheadedness, dizziness with position changes, and a burning sensation in his upper chest. It would seem that these symptoms have been somewhat worse in the last few days. On the night before admission, he actually took 2 Ativan since that of 1 and woke up on the day of admission feeling somewhat disoriented and more weaker than usual. The disorientation apparently subsided but he still feels somewhat weak and fatigued which was present even before he actually took the extra dose of Ativan yesterday evening. It should be noted the patient has had numerous hospitalizations here at [facility] with regard to some of these chronic symptoms and has a fairly extensive GI as well as cardiovascular workup without any acute findings. He apparently saw his senior ui web developer not too long ago with recent testing did not demonstrate any acute issues/ problems. He also saw gastroenterology not too long ago as well with adjustment in his proton pump inhibitor medication as well as the addition of right gland as well. He otherwise gave no other symptoms with regard to fevers, chills, diaphoresis, syncope, paresthesias, difficulty speaking or swallowing, headache, cough, palpitations, shortness of breath, nausea, or vomiting. He does give a history of intermittent loose stools/ diarrhea alternating with constipation and takes Imodium and laxatives on as needed basis. However, given his other complaints as mentioned above, he presented to the ER for further assessment. Workup and evaluation emergency room demonstrated the patient be hemodynamically stable and afebrile. Routine blood test demonstrated an unremarkable CBC aside from anemia with a hemoglobin 9.1 and a chemistry that was consistent with his known history of end-stage renal disease although his potassium was somewhat low at 3.1 and his magnesium was low at 1.2. his initial troponin was negative and his EKG did not demonstrate any evidence of acute ischemia. Viral testing for influenza, RSV, and COVID were negative and his chest x-ray was negative for any focal infiltrates or effusions. Given his hypokalemia and hypo magnesemia, he was given IV magnesium sulfate as well as oral potassium and was subsequently admitted to the hospital for further evaluation and therapy. Since his admission, he has tested positive for C diff colitis and has been initiated on appropriate antibiotic therapy. His repeat labs demonstrated improvement in his potassium and magnesium levels. Renal consultation was requested due to his end-stage renal disease. The patient normally does peritoneal dialysis every evening through [facility] under the care of Dr. Alan Mccall. The patient is well known to me as I have taking care of him during his multitude of hospitalization/admissions to [facility] for his issues and problems that range from hypertensive urgency, orthostatic hypotension, recurrent chest discomfort/pain, recurrent abdominal pain, diarrhea, constipation, and C diff colitis. He reports his peritoneal dialysis treatments have been going well at home without any issues or problems. Currently, at the time my evaluation, he does not appear in acute distress. Review of Systems 2 Review of Systems: As per HPI. [facility] Past Medical History Medical History C. difficile colitis Arthritis Kidney stones Benign prostatic hyperplasia Coronary artery disease End-stage renal disease on peritoneal dialysis Obstructive sleep apnea Insulin dependent type 2 diabetes mellitus Renal cell carcinoma Status post partial left nephrectomy. Dyslipidemia Clostridium difficile infection Gastroesophageal reflux disease Depression with anxiety Hypothyroidism Cirrhosis Pituitary tumor Status post resection. Anemia Chronic diastolic (congestive) heart failure Hypertension Surgical History Surgical History History of open reduction and internal fixation (ORIF) procedure (11/2022) Screw fixation of sternal fracture. History of colonoscopy with polypectomy History of umbilical hernia repair History of inguinal hernia repair History of coronary artery stent placement History of cardiac catheterization (08/2020) Stent x2 to the LAD. History of arthroplasty of right knee History of cataract extraction History of pituitary surgery (11/2021) History of partial nephrectomy Partial left nephrectomy for renal cell carcinoma. History of cholecystectomy (2007) Family History Family History (Updated 03/13/24 @ 22:44 by Gisel Hercules RN) Mother Aneurysm Hypertension Cerebrovascular accident Father Carcinoma of colon Social History Social History (Updated 03/13/24 @ 21:50 by Medina Boston PA-C) Social History: Surrogate medical decision maker: Harriet Carl, spouse. Code status: Full code. Smoking status: Never smoker Second hand tobacco smoke exposure: No Alcohol intake: never Alcohol use details: rare, holidays Substance use: never Substance use type: does not use Do You Feel Safe in your Home?: Yes Lack of Transportation: No Lack of Food: Never True Current Housing: I Have Housing Concerned About Future Housing: No Difficulty Paying Gas/Electric Bills: No Difficulty Paying for Meds: No Currently Unemployed: No Education: Decline to Answer Difficulty w/ Childcare or Family Care: No Living arrangements: with family Additional living arrangements comments: Lives with spouse in [place]. Occupation/Education: retired Additional occupation/education comments: [employer]. Spiritual care concerns: No Agree to blood products: Yes Meds Home Medications and Allergies Home Medications ?Medication ?Instructions ?Recorded ?Confirmed ?Type blood-glucose meter (OneTouch #1 ea 12/23/18 03/13/24 Rx Ultra2 Meter) lancets 30 gauge (OneTouch Delica #100 ea 12/23/18 03/13/24 Rx Lancets) aspirin 81 mg tablet,delayed 81 mg PO DAILY 02/01/19 03/13/24 History release (Sami Low Dose Aspirin) vit C 250 mg-vit E 200 unit-zinc 1 tablet PO Q12H 02/01/19 03/13/24 History 12.5 mg-copper 1 st-fzj-moiybu tablet (ICaps AREDS2 (copper citrate)) blood sugar diagnostic ([facility] 05/14/19 03/13/24 History Ultra Blue Test Strip) carvedilol 25 mg tablet (Coreg) 25 mg PO Q12H 09/06/19 03/13/24 History pen needle, diabetic 32 gauge x #200 ea 09/06/19 03/13/24 Rx 1/ (BD Ultra-Fine Micro Pen Needle) insulin glargine 100 unit/mL (3 30 unit subcut Q12H 10/12/21 03/13/24 History mL) subcutaneous pen (Basaglar KwikPen U-100 Insulin) lisinopril 20 mg tablet 20 mg PO BID 08/12/22 03/13/24 History cholecalciferol (vitamin D3) 125 125 mcg PO QNOON 10/01/22 03/13/24 History mcg (5,000 unit) tablet (Vitamin D3) folic acid 0.8 mg-vit B comp with 1 tablet PO QNOON 10/01/22 03/13/24 History R-nrnr-tfisvrc D3 2,000 unit tablet (Dialyvite 800-Ultra D) furosemide 80 mg tablet 160 mg PO BID 10/01/22 03/13/24 History insulin aspart U-100 100 unit/mL See Rx Instructions .Route .COMPLEX 10/01/22 03/13/24 History (3 mL) subcutaneous pen (Novolog FlexPen U-100 Insulin aspart) diphenhydramine 25 2 tablet PO HS 03/12/23 03/13/24 History mg-acetaminophen 500 mg tablet (Tylenol PM Extra Strength) atorvastatin 80 mg tablet 80 mg PO HS 09/02/23 03/13/24 History diltiazem HCl 120 mg 120 mg PO Q12H 09/02/23 03/13/24 History capsule,extended release 12 hr levothyroxine 112 mcg tablet 112 mcg PO DAILY 09/02/23 03/13/24 History clonidine 0.2 mg/24 hr weekly 1 patch transdermal WEEKLY 09/25/23 03/13/24 History transdermal patch hydralazine 10 mg tablet 30 mg PO TID 10/15/23 03/14/24 History tadalafil 5 mg tablet 5 mg PO HS 11/15/23 03/13/24 History lorazepam 0.5 mg tablet (Ativan) 0.5 mg PO HS PRN Anxiety #30 tabs 11/27/23 03/13/24 Rx lansoprazole 30 mg capsule,delayed 30 mg PO BID #60 caps 02/25/24 03/13/24 Rx release metoclopramide HCl 10 mg tablet 10 mg PO BID #60 tabs 02/25/24 03/13/24 Rx (Reglan) calcium acetate(phosphat bind) 667 2,001 mg PO TIDWM 03/13/24 03/13/24 History mg capsule fenofibrate nanocrystallized 145 145 mg PO QNOON 03/13/24 03/13/24 History mg tablet gabapentin 300 mg capsule 300 mg PO Q8H 03/13/24 03/13/24 History hydrocodone 5 mg-acetaminophen 325 1 tablet PO Q6H PRN pain (scale 03/13/24 03/13/24 History mg tablet score 4-6) metolazone 5 mg tablet 5 mg PO DAILY 03/13/24 03/13/24 History pantoprazole 40 mg tablet,delayed 40 mg PO Q12H 03/13/24 03/13/24 History release Allergies Allergy/AdvReac Type Severity Reaction Status Date / Time No Known Allergies Allergy Verified 03/13/24 21:21 Vital Signs Vital Signs Temp Pulse Resp BP Pulse Ox O2 Del Method 03/14/24 11:00 98.2 F 66 16 156/75 H 99 03/14/24 08:49 82 03/14/24 08:00 98.4 F 66 20 173/84 H 96 03/14/24 08:00 72 03/14/24 07:59 98.7 F 60 20 154/71 H 95 01/26/25 06:19 96 Room Air 03/14/24 05:53 63 03/14/24 04:00 67 03/14/24 04:00 Room Air 03/14/24 03:15 98.1 F 18 171/63 H 96 03/14/24 02:00 71 03/14/24 00:00 74 03/14/24 00:00 Room Air 03/14/24 00:00 98.8 F 68 18 156/61 H 100 03/13/24 22:00 83 03/13/24 21:00 63 03/13/24 21:00 Room Air 03/13/24 20:55 97.7 F 61 17 153/62 H 99 03/13/24 20:01 64 21 H 152/74 H 03/13/24 19:46 62 15 150/78 H 100 03/13/24 19:16 62 13 138/64 100 03/13/24 18:17 71 19 160/74 H 03/13/24 18:16 63 13 149/71 H 99 03/13/24 18:15 63 13 03/13/24 18:02 63 13 03/13/24 18:01 63 14 155/74 H 97 03/13/24 17:31 63 11 L 177/85 H 100 03/13/24 17:30 62 12 03/13/24 17:22 58 L 15 03/13/24 16:50 63 13 99 03/13/24 16:15 66 15 98 03/13/24 16:04 64 17 146/62 H 98 03/13/24 16:03 65 13 98 Exam 2 Narrative: GENERAL APPEARANCE: elderly but WD/WN male in no acute distress HEENT: normocephalic, atraumatic, normal conjunctiva and sclera, nares patient NECK: no lymphadenopathy, thyromegaly, or JVD MOUTH: normal lips, teeth, and gums CARDIOVASCULAR: RRR, normal S1 and S2, no rub RESPIRATORY: clear to auscultation bilaterally ABDOMEN: soft, mild TTP, nondistended, positive bowel sounds present EXTREMITIES: no evidence of cyanosis, clubbing, or edema NEUROLOGICAL: alert and oriented x 3; CN II - XII intact bilaterally; no focal deficits noted Results Lab Results 03/15/24 10:59 03/14/24 08:58 Lab results: Most recent lab results Calcium 8.0 mg/dL (8.4-10.2) L 03/14/24 08:58 Phosphorus 7.0 mg/dL (2.5-4.5) H 03/14/24 08:58 Magnesium 1.4 mg/dL (1.6-2.3) L 03/14/24 08:58
[2024-03-14 12:20] LABS: Glucose Point of Care 145 mg/dl (65-105)
--- NOTE | 2024-03-14 13:32 | PM.IMPN ---
Progress Note: A&P Assessment and Plan (1) C. difficile colitis: Code(s): A04.72 - Enterocolitis due to Clostridium difficile, not specified as recurrent Status: Acute Assessment and Plan: Symptoms improving Continue fidaxomicin for 10 days. (2) Elevated troponin: Code(s): R79.89 - Other specified abnormal findings of blood chemistry Status: Acute (3) Electrolyte abnormality: Code(s): E87.8 - Other disorders of electrolyte and fluid balance, not elsewhere classified Status: Acute Assessment and Plan: 03/14/2024 sodium 135 potassium 3.6 magnesium 1.4 (4) End-stage renal disease on peritoneal dialysis: Code(s): N18.6 - End stage renal disease; Z99.2 - Dependence on renal dialysis Status: Chronic Assessment and Plan: Creatinine 10.49 on 03/14/2024 Nephrology consulted (5) Normocytic anemia: Code(s): D64.9 - Anemia, unspecified Status: Inactive Assessment and Plan: Anemia of chronic kidney disease Stable (6) Hypertension: Qualifiers: Hypertension type: primary hypertension Qualified Code(s): I10 - Essential (primary) hypertension Code(s): I10 - Essential (primary) hypertension Status: Chronic Assessment and Plan: 03/14/2024 controlled (7) Insulin dependent type 2 diabetes mellitus: Code(s): E11.9 - Type 2 diabetes mellitus without complications; Z79.4 - long term care phlebotomist (current) use of insulin Status: Acute Assessment and Plan: 03/14/2024 FBS 130 Continue current regimen (8) Hypothyroidism: Code(s): E03.9 - Hypothyroidism, unspecified Status: Acute Assessment and Plan: Continue home regimen (9) Gastroesophageal reflux disease: Code(s): K21.9 - Gastro-esophageal reflux disease without esophagitis Status: Acute Assessment and Plan: Add p.r.n. famotidine (10) Obstructive sleep apnea: Code(s): G47.33 - Obstructive sleep apnea (adult) (pediatric) Status: Acute Assessment and Plan: Continue home CPAP Subjective Date/time seen: 03/14/24 13:32 Interval history: Complains of worsening of chronic GERD. Having some heartburn issues. Tolerating diet otherwise. Diarrhea alternates from liquid to pudding consistency. Less frequent than yesterday. No abdominal pain. No vomiting. Denied chest pain or shortness of breath. Does have nasal congestion. Chronic. Makes it difficult to uses CPAP. Was a little better after nasal saline. Complains of pain in the left side of his abdomen that is chronic. Worse when he takes a deep breath. Also feels it in his bilateral upper chest when he takes a deep breath. He is on chronic home peritoneal dialysis for about 5 years. Review of Systems Review of Systems: All systems reviewed & are unremarkable except as noted in HPI and below Exam Narrative: HEENT: PERRL, sclerae nonicteric, pharyngeal mucosa pink and intact NECK: No JVD CHEST: Clear to auscultation. Normal effort. HEART: NL S1/S2, regular, no murmur ABDOMEN: BS+, soft, mild diffuse tenderness, no palpable mass, PD catheter noted. EXTREMITIES: No cyanosis, edema, or clubbing NEUROLOGIC: CN intact and symmetric to inspection. MUSCULOSKELETAL: Tone and strength symmetric. PSYCH: Alert. Oriented to person, place, and time. Affect blunted. Objective Data Vital Signs Vital Signs: Vital Signs - 24 hr 03/13/24 14:52 03/13/24 16:03 03/13/24 16:04 Temperature 98.5 F Pulse Rate 65 65 64 Respiratory Rate 18 13 17 Blood Pressure 121/55 L 146/62 H Pulse Oximetry 98 98 98 Oxygen Delivery Room Air 03/13/24 16:15 03/13/24 16:50 03/13/24 17:22 Temperature Pulse Rate 66 63 58 L Respiratory Rate 15 13 15 Blood Pressure Pulse Oximetry 98 99 Oxygen Delivery 03/13/24 17:30 03/13/24 17:31 03/13/24 18:01 Temperature Pulse Rate 62 63 63 Respiratory Rate 12 11 L 14 Blood Pressure 177/85 H 155/74 H Pulse Oximetry 100 97 Oxygen Delivery 03/13/24 18:02 03/13/24 18:15 03/13/24 18:16 Temperature Pulse Rate 63 63 63 Respiratory Rate 13 13 13 Blood Pressure 149/71 H Pulse Oximetry 99 Oxygen Delivery 03/13/24 18:17 03/13/24 19:16 03/13/24 19:46 Temperature Pulse Rate 71 62 62 Respiratory Rate 19 13 15 Blood Pressure 160/74 H 138/64 150/78 H Pulse Oximetry 100 100 Oxygen Delivery 03/13/24 20:01 03/13/24 20:55 03/13/24 21:00 Temperature 97.7 F Pulse Rate 64 61 Respiratory Rate 21 H 17 Blood Pressure 152/74 H 153/62 H Pulse Oximetry 99 Oxygen Delivery Room Air 03/13/24 21:00 03/13/24 22:00 03/14/24 00:00 Temperature 98.8 F Pulse Rate 63 83 68 Respiratory Rate 18 Blood Pressure 156/61 H Pulse Oximetry 100 Oxygen Delivery 03/14/24 00:00 03/14/24 00:00 03/14/24 02:00 Temperature Pulse Rate 74 71 Respiratory Rate Blood Pressure Pulse Oximetry Oxygen Delivery Room Air 03/14/24 03:15 03/14/24 04:00 03/14/24 04:00 Temperature 98.1 F Pulse Rate 67 Respiratory Rate 18 Blood Pressure 171/63 H Pulse Oximetry 96 Oxygen Delivery Room Air 03/14/24 05:53 03/14/24 06:19 03/14/24 07:59 Temperature 98.7 F Pulse Rate 63 60 Respiratory Rate 20 Blood Pressure 154/71 H Pulse Oximetry 96 95 Oxygen Delivery Room Air 03/14/24 08:00 03/14/24 08:49 03/14/24 10:00 Temperature Pulse Rate 72 82 67 Respiratory Rate Blood Pressure Pulse Oximetry Oxygen Delivery 03/14/24 12:00 Temperature 98.2 F Pulse Rate 66 Respiratory Rate 16 Blood Pressure 156/75 H Pulse Oximetry 99 Oxygen Delivery Intake/Output Intake/Output: Intake & Output 03/11/24 03/12/24 03/13/24 03/14/24 23:59 23:59 23:59 23:59 Intake Total 1050 100 Output Total 0 Balance 1050 100 Meds/Results Medications: Active Medications Generic Name Dose Route Start Last Admin Trade Name Freq PRN Reason Stop Dose Admin Acetaminophen 650 mg 03/13/24 21:57 Acetaminophen 325 Mg Tablet PO Q6H PRN Mild Pain (1-3) or Fever Acetaminophen 1,000 mg 03/14/24 21:00 Acetaminophen 500 Mg Tablet PO HS JERMAINE Hydrocodone Bitart/Acetaminophen 1 tab 03/14/24 00:44 03/14/24 01:59 Hydrocodone/Acetaminophen (*Crx) 5-325 Mg Tablet PO 1 tab Q6H PRN Administration pain (scale score 4-6) Aspirin 81 mg 03/14/24 09:00 03/14/24 08:50 Aspirin 81 Mg Enteric Tablet PO 81 mg DAILY JERMAINE Administration Atorvastatin Calcium 80 mg 03/14/24 21:00 Atorvastatin 40 Mg Tablet PO HS [facility] Calcium Acetate 2,001 mg 03/14/24 08:00 03/14/24 08:49 Calcium Acetate 667 Mg Tablet PO 2,001 mg TIDWM JERMAINE Administration Carvedilol 25 mg 03/14/24 09:00 03/14/24 08:49 Carvedilol 25 Mg Tablet PO 25 mg Q12HR [facility]ERMAINE Administration Clonidine HCl 1 patch 03/20/24 09:00 Clonidine 0.2 Mg/24 Hr Patch TRANSDERM Sa@0900 [facility] Dextrose 12.5 gm 03/13/24 21:57 Dextrose 50% 25 Gm/50 Ml Syringe IV PUSH PRN PRN Hypoglycemia Protocol Diltiazem HCl 120 mg 03/14/24 09:00 Diltiazem Hcl 12 Hr 60 Mg Cap.12hr PO Q12HR [facility] Diphenhydramine HCl 50 mg 03/14/24 21:00 Diphenhydramine Hcl Cap 25 Mg Capsule PO HS [facility] Fidaxomicin 200 mg 03/14/24 09:00 03/14/24 08:50 Fidaxomicin 200 Mg Tablet PO 03/24/24 08:59 200 mg Q12HR [facility]MAINE Administration Furosemide 160 mg 03/14/24 09:00 03/14/24 08:50 Furosemide 80 Mg Tablet PO 160 mg BID [facility] Administration Gabapentin 300 mg 03/14/24 06:00 03/14/24 03:36 Gabapentin 300 Mg Capsule PO 300 mg Q8HR [facility] Administration Glucagon 1 mg 03/13/24 21:57 Glucagon For Inj 1 Mg Vial IM PRN PRN Hypoglycemia Protocol Glucose 15 gm 03/13/24 21:57 Glucose Oral Gel 15 Gm Of Glucse In 37.5 Gm Tube PO PRN PRN Hypoglycemia Protocol Heparin Sodium (Porcine) 5,000 units 03/13/24 22:10 03/14/24 08:55 Heparin Sodium 5,000 Units/Ml Vial SUB-Q Not Given Q12HR [facility] Hydralazine HCl 30 mg 03/14/24 14:00 Hydralazine 10 Mg Tablet PO Q8HR [facility] Dextrose 1,000 mls @ 100 mls/hr 03/13/24 21:57 Dextrose 5% 1,000 Ml IVPB PRN PRN Hypoglycemia Protocol Insulin Aspart 1 - 3 units 03/13/24 22:10 03/13/24 23:58 Insulin Aspart (*Bkc) 100 Units/Ml SUB-Q Not Given HS [facility] Protocol Insulin Aspart 3 - 6 units 03/14/24 08:00 03/14/24 12:24 Insulin Aspart (*Bkc) 100 Units/Ml SUB-Q Not Given TIDWM [facility] Protocol Insulin Glargine 30 units 03/14/24 09:00 03/14/24 08:51 Insulin Glargine (*Bkc) 100 Units/Ml SUB-Q 30 units Q12HR [facility] Administration Levothyroxine Sodium 112 mcg 03/14/24 06:30 03/14/24 03:36 Levothyroxine Sodium 112 Mcg Tablet PO 112 mcg DAILY@0630 [facility] Administration Lisinopril 20 mg 03/14/24 09:00 03/14/24 08:51 Lisinopril 20 Mg Tablet PO 20 mg Q12HR [facility] Administration Lorazepam 0.5 mg 03/14/24 00:44 03/14/24 01:59 Lorazepam (*Crx) 0.5 Mg Tablet PO 0.5 mg HS PRN Administration Anxiety Miscellaneous Information 0 each 03/14/24 00:01 Tadalafil Is Non-Formulary. Use Pt Own Supply? XX 04/13/24 00:00 CLARIFY [facility] Miscellaneous Information 0 each 03/14/24 00:01 Diltiazem 120 Mg 12 Hr Release Is Non-Formulary. We Stock Diltiazem 240 Mg 24 Hr Releas XX 04/13/24 00:00 [facility]ARIFY [facility] Multivitamins/Minerals 1 tablet 03/14/24 09:00 03/14/24 08:50 Opti-Gen Tab PO 1 tablet Q12HR [facility] Administration Non-Formulary Medication 5 mg 03/14/24 21:00 Tadalafil PO 04/13/24 20:59 HS [facility] Ondansetron HCl 4 mg 03/13/24 19:41 03/14/24 02:04 Ondansetron Inj 4 Mg/2 Ml Vial IV PUSH 4 mg Q4H PRN Administration Nausea Pantoprazole Sodium 40 mg 03/14/24 09:00 03/14/24 08:50 Pantoprazole 40 Mg Tablet PO 40 mg Q12HR [facility] Administration Sodium Chloride 1 spray 03/13/24 21:42 03/13/24 23:57 Saline 0.65% Ney Soln 44 Ml Btl NASAL 1 spray Q6HR PRN Administration Congestion Vitamin B Complex/Folic Acid 1 cap 03/14/24 12:00 Vitamin B Cmplx/Vit C/Folic Ac 1 Capsule PO NOON [facility] Vitamin D 5,000 units 03/14/24 12:00 Cholecalciferol 1,000 Units Tablet PO NOON [facility] Radiology Results: ITS Impressions Chest X-Ray 03/13/24 15:34 IMPRESSION: No focal infiltrate or effusion. Abdomen X-Ray 03/14/24 07:16 Impression: No significant abnormality is seen. Venous Doppler Study 03/14/24 12:19 Impression: No evidence of deep vein thrombosis involving the bilateral lower extremities. Labs Labs: Laboratory Results - last 24 hr 03/13/24 03/13/24 03/13/24 15:05 16:41 16:53 WBC 8.4 RBC 2.99 L Hgb 9.1 L Hct 27.9 L MCV 93.3 MCH 30.4 MCHC 32.6 RDW 15.9 H Plt Count 141 L MPV 11.1 H Immature Gran % (Auto) 1.9 H Neut % (Auto) 79.2 H Lymph % (Auto) 8.1 L Rains % (Auto) 10.5 H Eos % (Auto) 0.2 Baso % (Auto) 0.1 L Lymph # (Auto) 0.68 L Rains # (Auto) 0.9 H Eos # (Auto) 0.0 Baso # (Auto) 0.0 Abs Immat Gran (auto) 0.16 H Absolute Neuts (auto) 6.6 Absolute Nucleated RBC 0.000 Nucleated RBC % 0.0 PT 13.9 INR 1.0 APTT 31.3 D-Dimer 0.38 Sodium 133 L Potassium 3.1 L Chloride 92 L Carbon Dioxide 27 Anion Gap 14 H BUN 43 H Creatinine 9.64 H Estim Creat Clear Calc 9 Estimated GFR 5 L Glucose 171 H POC Capillary Glucose Hemoglobin A1c 6.6 H Lactic Acid 1.8 Calcium 7.8 L Phosphorus 6.8 H Magnesium 1.2 L Iron 53 TIBC 209 L % Saturation 25 Ferritin 480.00 H Total Bilirubin 0.5 AST 23 ALT 17 Alkaline Phosphatase 67 Troponin I 0.107 H* Total Protein 6.0 L Albumin 3.1 L Lipase 80 Vitamin B12 Folate TSH (Reflex) 1.390 Stl Occult Blood (IFOB) C. difficile (PCR) Hep Bs Antigen Hep Bs Antibody Influenza A (RT-PCR) Negative Influenza B (RT-PCR) Negative RSV (RT-PCR) Negative SARS-CoV-2 RNA (RT-PCR) Negative 03/13/24 03/13/24 03/13/24 20:24 23:49 23:55 WBC RBC Hgb Hct MCV MCH MCHC RDW Plt Count MPV Immature Gran % (Auto) Neut % (Auto) Lymph % (Auto) Rains % (Auto) Eos % (Auto) Baso % (Auto) Lymph # (Auto) Rains # (Auto) Eos # (Auto) Baso # (Auto) Abs Immat Gran (auto) Absolute Neuts (auto) Absolute Nucleated RBC Nucleated RBC % PT INR APTT D-Dimer Sodium 132 L Potassium 3.7 Chloride 96 L Carbon Dioxide 24 Anion Gap 12 BUN 43 H Creatinine 9.21 H Estim Creat Clear Calc 9 Estimated GFR 6 L Glucose 82 POC Capillary Glucose 114 H Hemoglobin A1c Lactic Acid Calcium 8.2 L Phosphorus Magnesium Iron TIBC % Saturation Ferritin Total Bilirubin AST ALT Alkaline Phosphatase Troponin I 0.113 H* Total Protein Albumin Lipase Vitamin B12 539.0 Folate 17.8 TSH (Reflex) Stl Occult Blood (IFOB) Positive H C. difficile (PCR) Hep Bs Antigen Hep Bs Antibody Influenza A (RT-PCR) Influenza B (RT-PCR) RSV (RT-PCR) SARS-CoV-2 RNA (RT-PCR) 03/14/24 03/14/24 03/14/24 00:24 00:36 07:40 WBC RBC Hgb Hct MCV MCH MCHC RDW Plt Count MPV Immature Gran % (Auto) Neut % (Auto) Lymph % (Auto) Rains % (Auto) Eos % (Auto) Baso % (Auto) Lymph # (Auto) Rains # (Auto) Eos # (Auto) Baso # (Auto) Abs Immat Gran (auto) Absolute Neuts (auto) Absolute Nucleated RBC Nucleated RBC % PT INR APTT D-Dimer Sodium Potassium Chloride Carbon Dioxide Anion Gap BUN Creatinine Estim Creat Clear Calc Estimated GFR Glucose POC Capillary Glucose 101 Hemoglobin A1c Lactic Acid Calcium Phosphorus Magnesium 1.4 L Iron TIBC % Saturation Ferritin Total Bilirubin AST ALT Alkaline Phosphatase Troponin I 0.109 H* Total Protein Albumin Lipase Vitamin B12 Folate TSH (Reflex) Stl Occult Blood (IFOB) C. difficile (PCR) Positive A* Hep Bs Antigen Hep Bs Antibody Influenza A (RT-PCR) Influenza B (RT-PCR) RSV (RT-PCR) SARS-CoV-2 RNA (RT-PCR) 03/14/24 03/14/24 08:58 11:58 WBC 7.7 RBC 2.94 L Hgb 9.1 L Hct 28.0 L MCV 95.2 MCH 31.0 MCHC 32.5 RDW 16.0 H Plt Count 142 L MPV 11.0 H Immature Gran % (Auto) Neut % (Auto) Lymph % (Auto) Rains % (Auto) Eos % (Auto) Baso % (Auto) Lymph # (Auto) Rains # (Auto) Eos # (Auto) Baso # (Auto) Abs Immat Gran (auto) Absolute Neuts (auto) Absolute Nucleated RBC Nucleated RBC % PT INR APTT D-Dimer Sodium 135 L Potassium 3.6 Chloride 96 L Carbon Dioxide 25 Anion Gap 14 H BUN 48 H Creatinine 10.49 H Estim Creat Clear Calc 8 Estimated GFR 5 L Glucose 130 H POC Capillary Glucose 145 H Hemoglobin A1c Lactic Acid Calcium 8.0 L Phosphorus 7.0 H Magnesium 1.4 L Iron TIBC % Saturation Ferritin Total Bilirubin AST ALT Alkaline Phosphatase Troponin I Total Protein Albumin Lipase Vitamin B12 Folate TSH (Reflex) Stl Occult Blood (IFOB) C. difficile (PCR) Hep Bs Antigen Negative Hep Bs Antibody Negative Influenza A (RT-PCR) Influenza B (RT-PCR) RSV (RT-PCR) SARS-CoV-2 RNA (RT-PCR)
[2024-03-14] MEDS: CHOLECALCIFEROL 1,000 UNITS TABLET 5000 UNITS PO (14:32)
[2024-03-14] MEDS: hydrALAZINE 10 MG TABLET 30 MG PO ×2 (14:32→20:54)
[2024-03-14] MEDS: VITAMIN B CMPLX/VIT C/FOLIC AC 1 CAPSULE 1 CAP PO (14:33)
[2024-03-14] MEDS: FAMOTIDINE 10 MG TABLET PO (14:33)
[2024-03-14 16:10] LABS: Glucose Point of Care 132 mg/dl (65-105)
--- NOTE | 2024-03-14 16:35 | PC.NURSE ---
Transfer received per hospital bed from IMU.
[2024-03-14] MEDS: GENTAMICIN SULFATE 0.1% CR 15 GM TUBE 1 APPLIC TOPICAL (18:00)
[2024-03-14] MEDS: HEPARIN SODIUM 5,000 UNITS/ML VIAL 5000 UNITS SUB-Q (20:51)
[2024-03-14] MEDS: ATORVASTATIN 40 MG TABLET 80 MG PO (20:53)
[2024-03-14] MEDS: diphenhydrAMINE HCl CAP 25 MG CAPSULE 50 MG PO (20:54)
[2024-03-14] MEDS: ACETAMINOPHEN 500 MG TABLET 1000 MG PO (20:54)
[2024-03-14] MEDS: INSULIN ASPART (*BKC) 100 UNITS/ML SUB-Q (20:58)
[2024-03-14 23:08] LABS: Glucose Point of Care 210 mg/dl (65-105)
[2024-03-15] VITALS (11 sets, daily range): BP systolic 108–179; BP diastolic 54–84; PULSE 53–88; RESP 12–20; TEMP 36.4–36.9; O2SAT 97–100
[2024-03-15] MEDS: GABAPENTIN 300 MG CAPSULE 600 MG PO ×3 (05:55→22:09)
[2024-03-15] MEDS: LEVOTHYROXINE SODIUM 112 MCG TABLET PO (05:56)
[2024-03-15] MEDS: hydrALAZINE 10 MG TABLET 30 MG PO ×3 (05:56→22:08)
[2024-03-15 08:15] LABS: Glucose Point of Care 60 mg/dl (65-105)
[2024-03-15 08:42] LABS: Glucose Point of Care 81 mg/dl (65-105)
--- NOTE | 2024-03-15 09:09 | PM.IMPN ---
Progress Note: A&P Assessment and Plan (1) Anxiety: Code(s): F41.9 - Anxiety disorder, unspecified Status: Acute (2) Hypertensive emergency: Code(s): I16.1 - Hypertensive emergency Status: Acute (3) Non-ST elevation [place] (NSTEMI): Code(s): I21.4 - Non-ST elevation (NSTEMI) myocardial infarction Status: Acute (4) Chronic diastolic (congestive) heart failure: Code(s): I50.32 - Chronic diastolic (congestive) heart failure Status: Chronic (5) Diabetes mellitus: Code(s): E11.9 - Type 2 diabetes mellitus without complications Status: Chronic (6) Insulin dependent type 2 diabetes mellitus: Code(s): E11.9 - Type 2 diabetes mellitus without complications; Z79.4 - 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 difficile colitis: Code(s): A04.72 - Enterocolitis due to Clostridium difficile, not specified as recurrent Status: Acute Assessment and Plan: Symptoms improving Continue fidaxomicin for 10 days. 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 Continue insulin sliding scale a.c. and q.h.s. Hypoglycemic protocol is initiated Elevated troponin: Code(s): R79.89 - Other specified abnormal findings of blood chemistry Status: Acute no chest pain, possilbe due to ESRD (3) Electrolyte abnormality: Code(s): E87.8 - Other disorders of electrolyte and fluid balance, not elsewhere classified Status: Acute Assessment and Plan: 03/14/2024 sodium 135 potassium 3.6 magnesium 1.4 End-stage renal disease on peritoneal dialysis: Code(s): N18.6 - End stage renal disease; Z99.2 - Dependence on renal dialysis Status: Chronic Assessment and Plan: Creatinine 10.49 on 03/14/2024 Nephrology consulted(5) Normocytic anemia: Code(s): D64.9 - Anemia, unspecified Status: Inactive Assessment and Plan: Anemia of chronic kidney disease Stable(6) Hypertension: Qualifiers: Hypertension type: primary hypertension Qualified Code(s): I10 - Essential (primary) hypertension Code(s): I10 - Essential (primary) hypertension Status: Chronic Assessment and Plan: 03/14/2024 controlled Hypothyroidism: Code(s): E03.9 - Hypothyroidism, unspecified Status: Acute Assessment and Plan: Continue home regimen(9) Gastroesophageal reflux disease: Code(s): K21.9 - Gastro-esophageal reflux disease without esophagitis Status: Acute Assessment and Plan: Add p.r.n. famotidine(10) Obstructive sleep apnea: Code(s): G47.33 - Obstructive sleep apnea (adult) (pediatric) Status: Acute Assessment and Plan: Continue home CPAP Subjective Date/time seen: 03/15/24 09:09 Interval history: I saw examined the patient today. Patient is p.r.n. hypoglycemia in the morning, glucose 60. Patient had a per or intake. Patient still had diarrhea without blood, had more than 4 bowel movements. 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 Exam Narrative: HEENT: PERRL, sclerae nonicteric, pharyngeal mucosa pink and intact NECK: No JVD CHEST: Clear to auscultation. Normal effort. HEART: NL S1/S2, regular, no murmur ABDOMEN: BS+, soft, mild diffuse tenderness, no palpable mass, PD catheter noted. EXTREMITIES: No cyanosis, edema, or clubbing NEUROLOGIC: CN intact and symmetric to inspection. MUSCULOSKELETAL: Tone and strength symmetric. PSYCH: Alert. Oriented to person, place, and time. Affect blunted. Objective Data Vital Signs Vital Signs: Vital Signs - 24 hr 03/14/24 10:00 03/14/24 12:00 03/14/24 12:00 Temperature 98.2 F Pulse Rate 67 66 69 Respiratory Rate 16 Blood Pressure 156/75 H Pulse Oximetry 99 Oxygen Delivery 03/14/24 14:00 03/14/24 14:06 03/14/24 14:07 Temperature Pulse Rate 68 Respiratory Rate Blood Pressure 160/67 H 149/66 H Pulse Oximetry Oxygen Delivery 03/14/24 16:00 03/14/24 20:00 03/14/24 20:00 Temperature 98.2 F 98.5 F Pulse Rate 65 65 Respiratory Rate 16 18 Blood Pressure 173/75 H 152/64 H Pulse Oximetry 98 95 Oxygen Delivery Room Air 03/14/24 20:59 03/14/24 22:45 03/15/24 00:00 Temperature 98.1 F Pulse Rate 72 56 L 88 Respiratory Rate 18 Blood Pressure 108/54 L Pulse Oximetry 94 100 Oxygen Delivery 03/15/24 01:56 03/15/24 06:05 03/15/24 08:00 Temperature 97.5 F L 97.5 F L Pulse Rate 57 L 53 L 58 L Respiratory Rate 12 20 Blood Pressure 112/72 179/79 H Pulse Oximetry 97 97 100 Oxygen Delivery 03/15/24 08:57 03/15/24 08:57 Temperature Pulse Rate Respiratory Rate Blood Pressure 176/84 H 168/67 H Pulse Oximetry Oxygen Delivery Intake/Output Intake/Output: Intake & Output 03/12/24 03/13/24 03/14/24 03/15/24 23:59 23:59 23:59 23:59 Intake Total 1050 460 Output Total 0 Balance 1050 460 Meds/Results Medications: Active Medications Generic Name Dose Route Start Last Admin Trade Name Freq PRN Reason Stop Dose Admin Acetaminophen 650 mg 03/13/24 21:57 Acetaminophen 325 Mg Tablet PO Q6H PRN Mild Pain (1-3) or Fever Acetaminophen 1,000 mg 03/14/24 21:00 03/14/24 20:54 Acetaminophen 500 Mg Tablet PO 1,000 mg HS JERMAINE Administration Hydrocodone Bitart/Acetaminophen 1 tab 03/14/24 00:44 03/14/24 01:59 Hydrocodone/Acetaminophen (*Crx) 5-325 Mg Tablet PO 1 tab Q6H PRN Administration pain (scale score 4-6) Aspirin 81 mg 03/14/24 09:00 03/14/24 08:50 Aspirin 81 Mg Enteric Tablet PO 81 mg DAILY JERMAINE Administration Atorvastatin Calcium 80 mg 03/14/24 21:00 03/14/24 20:53 Atorvastatin 40 Mg Tablet PO 80 mg HS JERMAINE Administration Calcium Acetate 2,001 mg 03/14/24 08:00 03/14/24 16:48 Calcium Acetate 667 Mg Tablet PO 2,001 mg TIDWM [facility]ER[facility]INE Administration Carvedilol 25 mg 03/14/24 09:00 03/14/24 20:59 Carvedilol 25 Mg Tablet PO 25 mg Q12HR [facility]ERMAINE Administration Clonidine HCl 1 patch 03/20/24 09:00 Clonidine 0.2 Mg/24 Hr Patch TRANSDERM Sa@0900 [facility] Dextrose 12.5 gm 03/13/24 21:57 Dextrose 50% 25 Gm/50 Ml Syringe IV PUSH PRN PRN Hypoglycemia Protocol Diltiazem HCl 120 mg 03/14/24 09:00 Diltiazem Hcl 12 Hr 60 Mg Cap.12hr PO Q12HR [facility] Diphenhydramine HCl 50 mg 03/14/24 21:00 03/14/24 20:54 Diphenhydramine Hcl Cap 25 Mg Capsule PO 50 mg HS [facility] Administration Famotidine 10 mg 03/14/24 13:57 03/14/24 14:33 Famotidine 10 Mg Tablet PO 10 mg Q6H PRN Administration Indigestion Fidaxomicin 200 mg 03/14/24 09:00 03/14/24 20:53 Fidaxomicin 200 Mg Tablet PO 03/24/24 08:59 200 mg Q12HR [facility]ER[facility] Administration Furosemide 160 mg 03/14/24 09:00 03/14/24 16:47 Furosemide 80 Mg Tablet PO 160 mg BID JERMAINE Administration Gabapentin 600 mg 03/15/24 06:00 03/15/24 05:55 Gabapentin 300 Mg Capsule PO 600 mg Q8HR [facility] Administration Gentamicin Sulfate 1 applic 03/14/24 21:00 03/14/24 18:00 Gentamicin Sulfate 0.1% Cr 15 Gm Tube TOPICAL 1 applic QHS [facility]ER[facility]INE Administration Glucagon 1 mg 03/13/24 21:57 Glucagon For Inj 1 Mg Vial IM PRN PRN Hypoglycemia Protocol Glucose 15 gm 03/13/24 21:57 Glucose Oral Gel 15 Gm Of Glucse In 37.5 Gm Tube PO PRN PRN Hypoglycemia Protocol Heparin Sodium (Porcine) 5,000 units 03/13/24 22:10 03/14/24 20:51 Heparin Sodium 5,000 Units/Ml Vial SUB-Q 5,000 units Q12HR [facility] Administration Hydralazine HCl 30 mg 03/14/24 14:00 03/15/24 05:56 Hydralazine 10 Mg Tablet PO 30 mg Q8HR [facility] Administration Dextrose 1,000 mls @ 100 mls/hr 03/13/24 21:57 Dextrose 5% 1,000 Ml IVPB PRN PRN Hypoglycemia Protocol Insulin Aspart 1 - 3 units 03/13/24 22:10 03/14/24 20:58 Insulin Aspart (*Bkc) 100 Units/Ml SUB-Q 1 units HS JERMAINE Administration Protocol Insulin Aspart 3 - 6 units 03/14/24 08:00 03/15/24 08:02 Insulin Aspart (*Bkc) 100 Units/Ml SUB-Q Not Given TIDWM [facility] Protocol Insulin Glargine 30 units 03/14/24 09:00 03/15/24 08:06 Insulin Glargine (*Bkc) 100 Units/Ml SUB-Q Not Given Q12HR [facility] Ipratropium [place] 2 spray 03/14/24 17:00 03/15/24 06:34 Ipratropium Nasal [place] 0.03% 15 Ml Bottle NASAL Not Given TID [facility] Levothyroxine Sodium 112 mcg 03/14/24 06:30 03/15/24 05:56 Levothyroxine Sodium 112 Mcg Tablet PO 112 mcg DAILY@0630 [facility] Administration Lisinopril 20 mg 03/14/24 09:00 03/14/24 20:54 Lisinopril 20 Mg Tablet PO 20 mg Q12HR [facility] Administration Lorazepam 0.5 mg 03/14/24 00:44 03/14/24 01:59 Lorazepam (*Crx) 0.5 Mg Tablet PO 0.5 mg HS PRN Administration Anxiety Miscellaneous Information 0 each 03/14/24 00:01 Tadalafil Is Non-Formulary. Use Pt Own Supply? XX 04/13/24 00:00 CLARIFY [facility] Miscellaneous Information 0 each 03/14/24 00:01 Diltiazem 120 Mg 12 Hr Release Is Non-Formulary. We Stock Diltiazem 240 Mg 24 Hr Releas XX 04/13/24 00:00 CLARIFY [facility] Multivitamins/Minerals 1 tablet 03/14/24 09:00 03/14/24 20:53 Opti-Gen Tab PO 1 tablet Q12HR [facility] Administration Non-Formulary Medication 5 mg 03/14/24 21:00 Tadalafil PO 04/13/24 20:59 HS [facility] Ondansetron HCl 4 mg 03/13/24 19:41 03/14/24 02:04 Ondansetron Inj 4 Mg/2 Ml Vial IV PUSH 4 mg Q4H PRN Administration Nausea Pantoprazole Sodium 40 mg 03/14/24 09:00 03/14/24 20:55 Pantoprazole 40 Mg Tablet PO 40 mg Q12HR [facility] Administration Sodium Chloride 1 spray 03/13/24 21:42 03/13/24 23:57 Saline 0.65% Ney Soln 44 Ml Btl NASAL 1 spray Q6HR PRN Administration Congestion Vitamin B Complex/Folic Acid 1 cap 03/14/24 12:00 03/14/24 14:33 Vitamin B Cmplx/Vit C/Folic Ac 1 Capsule PO 1 cap NOON [facility] Administration Vitamin D 5,000 units 03/14/24 12:00 03/14/24 14:32 Cholecalciferol 1,000 Units Tablet PO 5,000 units NOON [facility] Administration Radiology Results: ITS Impressions Chest X-Ray 03/13/24 15:34 IMPRESSION: No focal infiltrate or effusion. Abdomen X-Ray 03/14/24 07:16 Impression: No significant abnormality is seen. Venous Doppler Study 03/14/24 12:19 Impression: No evidence of deep vein thrombosis involving the bilateral lower extremities. Labs Labs: Laboratory Results - last 24 hr 03/14/24 03/14/24 03/14/24 08:58 11:58 16:03 WBC 7.7 RBC 2.94 L Hgb 9.1 L Hct 28.0 L MCV 95.2 MCH 31.0 MCHC 32.5 RDW 16.0 H Plt Count 142 L MPV 11.0 H Sodium 135 L Potassium 3.6 Chloride 96 L Carbon Dioxide 25 Anion Gap 14 H BUN 48 H Creatinine 10.49 H Estim Creat Clear Calc 8 Estimated GFR 5 L Glucose 130 H POC Capillary Glucose 145 H 132 H Calcium 8.0 L Phosphorus 7.0 H Magnesium 1.4 L Hep Bs Antigen Negative Hep Bs Antibody Negative 03/14/24 03/15/24 03/15/24 20:23 07:55 08:32 WBC RBC Hgb Hct MCV MCH MCHC RDW Plt Count MPV Sodium Potassium Chloride Carbon Dioxide Anion Gap BUN Creatinine Estim Creat Clear Calc Estimated GFR Glucose POC Capillary Glucose 210 H 60 L 81 Calcium Phosphorus Magnesium Hep Bs Antigen Hep Bs Antibody
[2024-03-15] MEDS: FUROSEMIDE 80 MG TABLET 160 MG PO ×2 (10:08→16:54)
[2024-03-15] MEDS: HEPARIN SODIUM 5,000 UNITS/ML VIAL 5000 UNITS SUB-Q ×2 (10:08→22:09)
[2024-03-15] MEDS: CALCIUM ACETATE 667 MG TABLET 2001 MG PO ×3 (10:09→16:54)
[2024-03-15] MEDS: carvediloL 25 MG TABLET PO ×2 (10:09→22:09)
[2024-03-15] MEDS: ASPIRIN 81 MG ENTERIC TABLET PO (10:10)
[2024-03-15] MEDS: OPTI-GEN TAB 1 TABLET PO ×2 (10:10→22:09)
[2024-03-15] MEDS: lisinopriL 20 MG TABLET PO ×2 (10:10→22:09)
[2024-03-15] MEDS: FIDAXOMICIN 200 MG TABLET PO ×2 (10:11→22:09)
[2024-03-15] MEDS: PANTOPRAZOLE 40 MG TABLET PO ×2 (10:11→22:08)
--- NOTE | 2024-03-15 10:20 | P.PNNP_ITS ---
Progress Note: A&P Assessment and Plan (1) End stage renal disease: Code(s): N18.6 - End stage renal disease Status: Chronic Assessment and Plan: * continue nightly CCPD * follow electrolytes, volume status, and clearance (2) C. difficile colitis: Code(s): A04.72 - Enterocolitis due to Clostridium difficile, not specified as recurrent Status: Acute Assessment and Plan: * as noted by admission testing * on fidaxomicin * follow clinical symptoms (3) Chronic diastolic (congestive) heart failure: Code(s): I50.32 - Chronic diastolic (congestive) heart failure Status: Chronic Assessment and Plan: * volume status stable * fluid removal with peritoneal dialysis to maintain euvolemia (4) Hypertension: Qualifiers: Hypertension type: primary hypertension Qualified Code(s): I10 - Essential (primary) hypertension Code(s): I10 - Essential (primary) hypertension Status: Chronic Assessment and Plan: * reasonable control * continue home medications * follow trend of hemodynamics (5) Anemia: Code(s): D64.9 - Anemia, unspecified Status: Chronic Assessment and Plan: * due to ESRD * follow trend of H/H * may need Epogen depending on length of hospital stay (6) Diabetes mellitus: Code(s): E11.9 - Type 2 diabetes mellitus without complications Status: Chronic Assessment and Plan: * follow accu-cheks * glycemic control per hospitalist Will continue to follow L Subjective Date/time seen: 03/15/24 10:20 Interval history: Follow-up for end stage renal disease on peritoneal dialysis. No apparent distress noted at his time; tolerated peritoneal dialysis treatment overnight without any issues or problems (CCPD supervised and seen at 10:10AM); reports frequent stools overnight but this appears to have subsided this morning; no other acute complaints voiced at the time of my visit. Exam 2 Narrative: General: elderly but WD/WN male in NAD Heart: normal S1 and S2; no rub Lungs: clear bilaterally Abdomen: soft, nontender, nondistended, positive bowel sounds Extremities: no cyanosis or clubbing; no edema Skin: warm and dry Objective Data Vital Signs Vital Signs: Vital Signs Temp Pulse Resp BP Pulse Ox O2 Del Method O2 Flow Rate 03/15/24 10:09 71 03/15/24 08:57 168/67 H 03/15/24 08:57 176/84 H 03/15/24 08:00 97.5 F L 58 L 20 179/79 H 100 03/15/24 06:05 97.5 F L 53 L 12 112/72 97 03/15/24 01:56 57 L 97 03/15/24 00:00 98.1 F 88 18 108/54 L 100 03/14/24 22:45 56 L 94 03/14/24 20:59 72 03/14/24 20:00 Room Air 03/14/24 20:00 98.5 F 65 18 152/64 H 95 03/14/24 16:00 98.2 F 65 16 173/75 H 98 03/14/24 14:07 149/66 H 03/14/24 14:06 160/67 H 03/14/24 14:00 68 03/14/24 12:00 69 03/14/24 12:00 98.2 F 66 16 156/75 H 99 Intake/Output Intake/Output: Intake & Output 03/12/24 03/13/24 03/14/24 03/15/24 23:59 23:59 23:59 23:59 Intake Total 1050 460 240 Output Total 0 Balance 1050 460 240 Meds/Results Medications: Active Medications Generic Name Dose Route Start Last Admin Trade Name Freq PRN Reason Stop Dose Admin Acetaminophen 650 mg 03/13/24 21:57 Acetaminophen 325 Mg Tablet PO Q6H PRN Mild Pain (1-3) or Fever Acetaminophen 1,000 mg 03/14/24 21:00 03/14/24 20:54 Acetaminophen 500 Mg Tablet PO 1,000 mg HS JERMAINE Administration Hydrocodone Bitart/Acetaminophen 1 tab 03/14/24 00:44 03/14/24 01:59 Hydrocodone/Acetaminophen (*Crx) 5-325 Mg Tablet PO 1 tab Q6H PRN Administration pain (scale score 4-6) Aspirin 81 mg 03/14/24 09:00 03/15/24 10:10 Aspirin 81 Mg Enteric Tablet PO 81 mg DAILY JERMAINE Administration Atorvastatin Calcium 80 mg 03/14/24 21:00 03/14/24 20:53 Atorvastatin 40 Mg Tablet PO 80 mg HS JERMAINE Administration Calcium Acetate 2,001 mg 03/14/24 08:00 03/15/24 10:09 Calcium Acetate 667 Mg Tablet PO 2,001 mg TIDWM JERMAINE Administration Carvedilol 25 mg 03/14/24 09:00 03/15/24 10:09 Carvedilol 25 Mg Tablet PO 25 mg Q12HR [facility] Administration Clonidine HCl 1 patch 03/20/24 09:00 Clonidine 0.2 Mg/24 Hr Patch TRANSDERM Sa@0900 [facility] Dextrose 12.5 gm 03/13/24 21:57 Dextrose 50% 25 Gm/50 Ml Syringe IV PUSH PRN PRN Hypoglycemia Protocol Diltiazem HCl 120 mg 03/14/24 09:00 Diltiazem Hcl 12 Hr 60 Mg Cap.12hr PO Q12HR [facility] Diphenhydramine HCl 50 mg 03/14/24 21:00 03/14/24 20:54 Diphenhydramine Hcl Cap 25 Mg Capsule PO 50 mg HS JERMAINE Administration Famotidine 10 mg 03/14/24 13:57 03/14/24 14:33 Famotidine 10 Mg Tablet PO 10 mg Q6H PRN Administration Indigestion Fidaxomicin 200 mg 03/14/24 09:00 03/15/24 10:11 Fidaxomicin 200 Mg Tablet PO 03/24/24 08:59 200 mg Q12HR [facility] Administration Furosemide 160 mg 03/14/24 09:00 03/15/24 10:08 Furosemide 80 Mg Tablet PO 160 mg BID JERMAINE Administration Gabapentin 600 mg 03/15/24 06:00 03/15/24 05:55 Gabapentin 300 Mg Capsule PO 600 mg Q8HR [facility] Administration Gentamicin Sulfate 1 applic 03/14/24 21:00 03/14/24 18:00 Gentamicin Sulfate 0.1% Cr 15 Gm Tube TOPICAL 1 applic QHS JERMAINE Administration Glucagon 1 mg 03/13/24 21:57 Glucagon For Inj 1 Mg Vial IM PRN PRN Hypoglycemia Protocol Glucose 15 gm 03/13/24 21:57 Glucose Oral Gel 15 Gm Of Glucse In 37.5 Gm Tube PO PRN PRN Hypoglycemia Protocol Heparin Sodium (Porcine) 5,000 units 03/13/24 22:10 03/15/24 10:08 Heparin Sodium 5,000 Units/Ml Vial SUB-Q 5,000 units Q12HR [facility] Administration Hydralazine HCl 30 mg 03/14/24 14:00 03/15/24 05:56 Hydralazine 10 Mg Tablet PO 30 mg Q8HR JERMAINE Administration Dextrose 1,000 mls @ 100 mls/hr 03/13/24 21:57 Dextrose 5% 1,000 Ml IVPB PRN PRN Hypoglycemia Protocol Insulin Aspart 1 - 3 units 03/13/24 22:10 03/14/24 20:58 Insulin Aspart (*Bkc) 100 Units/Ml SUB-Q 1 units HS JERMAINE Administration Protocol Insulin Aspart 3 - 6 units 03/14/24 08:00 03/15/24 08:02 Insulin Aspart (*Bkc) 100 Units/Ml SUB-Q Not Given TIDWM [facility] Protocol Insulin Glargine 30 units 03/14/24 09:00 03/15/24 08:06 Insulin Glargine (*Bkc) 100 Units/Ml SUB-Q Not Given Q12HR [facility] Ipratropium [place] 2 spray 03/14/24 17:00 03/15/24 10:12 Ipratropium Nasal [place] 0.03% 15 Ml Bottle NASAL Not Given TID [facility] Levothyroxine Sodium 112 mcg 03/14/24 06:30 03/15/24 05:56 Levothyroxine Sodium 112 Mcg Tablet PO 112 mcg DAILY@0630 [facility] Administration Lisinopril 20 mg 03/14/24 09:00 03/15/24 10:10 Lisinopril 20 Mg Tablet PO 20 mg Q12HR [facility]MA[facility] Administration Lorazepam 0.5 mg 03/14/24 00:44 03/14/24 01:59 Lorazepam (*Crx) 0.5 Mg Tablet PO 0.5 mg HS PRN Administration Anxiety Miscellaneous Information 0 each 03/14/24 00:01 Tadalafil Is Non-Formulary. Use Pt Own Supply? XX 04/13/24 00:00 CLARIFY [facility] Miscellaneous Information 0 each 03/14/24 00:01 Diltiazem 120 Mg 12 Hr Release Is Non-Formulary. We Stock Diltiazem 240 Mg 24 Hr Releas XX 04/13/24 00:00 CLARIFY [facility] Multivitamins/Minerals 1 tablet 03/14/24 09:00 03/15/24 10:10 Opti-Gen Tab PO 1 tablet Q12HR JERMAINE Administration Non-Formulary Medication 5 mg 03/14/24 21:00 Tadalafil PO 04/13/24 20:59 HS [facility] Ondansetron HCl 4 mg 03/13/24 19:41 03/14/24 02:04 Ondansetron Inj 4 Mg/2 Ml Vial IV PUSH 4 mg Q4H PRN Administration Nausea Pantoprazole Sodium 40 mg 03/14/24 09:00 03/15/24 10:11 Pantoprazole 40 Mg Tablet PO 40 mg Q12HR [facility]ER[facility]INE Administration Sodium Chloride 1 spray 03/13/24 21:42 03/13/24 23:57 Saline 0.65% Ney Soln 44 Ml Btl NASAL 1 spray Q6HR PRN Administration Congestion Vitamin B Complex/Folic Acid 1 cap 03/14/24 12:00 03/14/24 14:33 Vitamin B Cmplx/Vit C/Folic Ac 1 Capsule PO 1 cap NOON [facility] Administration Vitamin D 5,000 units 03/14/24 12:00 03/14/24 14:32 Cholecalciferol 1,000 Units Tablet PO 5,000 units NOON [facility] Administration Radiology Results: ITS Impressions Chest X-Ray 03/13/24 15:34 IMPRESSION: No focal infiltrate or effusion. Abdomen X-Ray 03/14/24 07:16 Impression: No significant abnormality is seen. Venous Doppler Study 03/14/24 12:19 Impression: No evidence of deep vein thrombosis involving the bilateral lower extremities. Labs Labs: Laboratory Tests 03/15/24 10:59 03/15/24 10:59 Calcium 8.7 Phosphorus 7.7 H Magnesium 1.7 Albumin 2.9 L
[2024-03-15 11:08] LABS: Basophils Percent Auto 0.3 % (0.2-1.2); Eosinophils Absolute Auto 0.1 K/mm3 (0-0.3); Hematocrit 30.7 % (42.0-52.0); Hemoglobin 9.5 g/dL (14.0-18.0); Immature Granulocyte Percent A 2.5 % (0-0.5); Lymphocytes Absolute Auto 0.65 K/mm3 (0.9-3.2); Lymphocytes Percent Auto 8.2 % (18.3-44.2); Mean Corpuscular HGB Conc 30.9 g/dl (32-36); Mean Corpuscular Hemoglobin 31.3 pg (26-34); Mean Platelet Volume 11.3 fl (7.4-10.4); Monocytes Percent Auto 12.5 % (2.6-8.5); Neutrophils Percent Auto 75.5 % (45.5-73.1); Nucleated Red Blood Cells Perc 0.3 % (0.0-0.2); Platelet Count Result 152 k/mm3 (150-375); Red Blood Count 3.04 M/mm3 (4.6-6.20); Red Cell Distribution Width 16.2 % (11.5-14.5); White Blood Count 7.9 K/mm3 (4.5-10.0)
[2024-03-15 12:05] LABS: Glucose Point of Care 175 mg/dl (65-105)
[2024-03-15 12:10] LABS: Albumin Level 2.9 g/dL (3.5-5.1); Anion Gap 14 mmol/L (4-12); Blood Urea Nitrogen 50 mg/dL (9-20); Calcium 8.7 mg/dL (8.4-10.2); Carbon Dioxide 23 mmol/L (22-30); Chloride 96 mmol/L (98-107); Estimated CRCL calculation 8 ml/min; Estimated Glomerular Filt Rate 5; Glucose 151 mg/dL (65-110); Magnesium 1.7 mg/dL (1.6-2.3); Phosphorus 7.7 mg/dL (2.5-4.5); Potassium 3.7 mmol/L (3.4-5.0); Sodium 133 mmol/L (137-145)
[2024-03-15] MEDS: CHOLECALCIFEROL 1,000 UNITS TABLET 5000 UNITS PO (12:29)
[2024-03-15] MEDS: VITAMIN B CMPLX/VIT C/FOLIC AC 1 CAPSULE 1 CAP PO (12:29)
[2024-03-15 16:51] LABS: Glucose Point of Care 217 mg/dl (65-105)
[2024-03-15] MEDS: INSULIN ASPART (*BKC) 100 UNITS/ML SUB-Q (16:56)
[2024-03-15] MEDS: diphenhydrAMINE HCl CAP 25 MG CAPSULE 50 MG PO (22:08)
[2024-03-15] MEDS: ATORVASTATIN 40 MG TABLET 80 MG PO (22:08)
[2024-03-15] MEDS: ACETAMINOPHEN 500 MG TABLET 1000 MG PO (22:08)
[2024-03-15] MEDS: GENTAMICIN SULFATE 0.1% CR 15 GM TUBE 1 APPLIC TOPICAL (22:09)
[2024-03-15 23:04] LABS: Glucose Point of Care 185 mg/dl (65-105)
[2024-03-16] VITALS: BP 145/66; PULSE 82; RESP 16; TEMP 36.8; O2SAT 98
[2024-03-16] MEDS: GABAPENTIN 300 MG CAPSULE 600 MG PO (05:35)
[2024-03-16] MEDS: LEVOTHYROXINE SODIUM 112 MCG TABLET PO (05:35)
[2024-03-16] MEDS: hydrALAZINE 10 MG TABLET 30 MG PO (05:35)
[2024-03-16 06:30] LABS: Basophils Percent Auto 0.3 % (0.2-1.2); Eosinophils Absolute Auto 0.1 K/mm3 (0-0.3); Eosinophils Percent Auto 1.2 % (0-4.4); Hematocrit 26.9 % (42.0-52.0); Hemoglobin 8.6 g/dL (14.0-18.0); Immature Granulocyte Absolute 0.26 K/mm3 (0.00-0.031); Immature Granulocyte Percent A 3.8 % (0-0.5); Lymphocytes Absolute Auto 0.86 K/mm3 (0.9-3.2); Lymphocytes Percent Auto 12.6 % (18.3-44.2); Mean Corpuscular Hemoglobin 30.8 pg (26-34); Mean Corpuscular Volume 96.4 fl (80-100); Monocytes Absolute Auto 0.9 K/mm3 (0.1-0.6); Neutrophils Absolute Auto 4.7 K/mm3 (1.3-6.7); Neutrophils Percent Auto 69.1 % (45.5-73.1); Nucleated Red Blood Cells Perc 0.3 % (0.0-0.2); Platelet Count Result 147 k/mm3 (150-375); Red Blood Count 2.79 M/mm3 (4.6-6.20); Red Cell Distribution Width 16.1 % (11.5-14.5); White Blood Count 6.8 K/mm3 (4.5-10.0)
[2024-03-16 06:37] LABS: Anion Gap 11 mmol/L (4-12); Blood Urea Nitrogen 46 mg/dL (9-20); Calcium 9.1 mg/dL (8.4-10.2); Carbon Dioxide 27 mmol/L (22-30); Chloride 95 mmol/L (98-107); Estimated CRCL calculation 7 ml/min; Estimated Glomerular Filt Rate 5; Glucose 130 mg/dL (65-110); Potassium 3.4 mmol/L (3.4-5.0); Sodium 133 mmol/L (137-145)
--- NOTE | 2024-03-16 07:55 | PM.IMPN ---
Progress Note: A&P Assessment and Plan (1) Anxiety: Code(s): F41.9 - Anxiety disorder, unspecified Status: Acute (2) Hypertensive emergency: Code(s): I16.1 - Hypertensive emergency Status: Acute (3) Non-ST elevation DC (NSTEMI): Code(s): I21.4 - Non-ST elevation (NSTEMI) myocardial infarction Status: Acute (4) Chronic diastolic (congestive) heart failure: Code(s): I50.32 - Chronic diastolic (congestive) heart failure Status: Chronic (5) Diabetes mellitus: Code(s): E11.9 - Type 2 diabetes mellitus without complications Status: Chronic (6) Insulin dependent type 2 diabetes mellitus: Code(s): E11.9 - Type 2 diabetes mellitus without complications; 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 difficile colitis: Code(s): A04.72 - Enterocolitis due to Clostridium difficile, not specified as recurrent Status: Acute Assessment and Plan: Symptoms improving on fidaxomicin for 10 days. 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 Continue insulin sliding scale a.c. and q.h.s. Hypoglycemic protocol is initiated 03/16: Patient has good appetite, no hypoglycemia Resume home medication Elevated troponin: Code(s): R79.89 - Other specified abnormal findings of blood chemistry Status: Acute no chest pain, possilbe due to ESRD (3) Electrolyte abnormality: Code(s): E87.8 - Other disorders of electrolyte and fluid balance, not elsewhere classified Status: Acute Assessment and Plan: 03/14/2024 sodium 135 potassium 3.6 magnesium 1.4 End-stage renal disease on peritoneal dialysis: Code(s): N18.6 - End stage renal disease; Z99.2 - Dependence on renal dialysis Status: Chronic Assessment and Plan: Creatinine 10.49 on 03/14/2024 Nephrology consulted Normocytic anemia: Code(s): D64.9 - Anemia, unspecified Status: Inactive Assessment and Plan: Anemia of chronic kidney disease Stable Hypertension: Qualifiers: Hypertension type: primary hypertension Qualified Code(s): I10 - Essential (primary) hypertension Code(s): I10 - Essential (primary) hypertension Status: Chronic Assessment and Plan: 03/14/2024 controlled Continue home medication discharge Hypothyroidism: Code(s): E03.9 - Hypothyroidism, unspecified Status: Acute Assessment and Plan: Continue home regimen Gastroesophageal reflux disease: Code(s): K21.9 - Gastro-esophageal reflux disease without esophagitis Status: Acute Assessment and Plan: Add p.r.n. famotidine Obstructive sleep apnea: Code(s): G47.33 - Obstructive sleep apnea (adult) (pediatric) Status: Acute Assessment and Plan: Continue home CPAP Subjective Date/time seen: 03/16/24 07:55 Interval history: No new issue even overnight, diarrhea resolved per nurse report Exam Narrative: HEENT: PERRL, sclerae nonicteric, pharyngeal mucosa pink and intact NECK: No JVD CHEST: Clear to auscultation. Normal effort. HEART: NL S1/S2, regular, no murmur ABDOMEN: BS+, soft, no palpable mass, PD catheter noted. EXTREMITIES: No cyanosis, edema, or clubbing NEUROLOGIC: CN intact and symmetric to inspection. MUSCULOSKELETAL: Tone and strength symmetric. PSYCH: Alert. Oriented to person, place, and time. Affect blunted. Objective Data Vital Signs Vital Signs: Vital Signs - 24 hr 03/15/24 08:00 03/15/24 08:57 03/15/24 08:57 Temperature 97.5 F L Pulse Rate 58 L Respiratory Rate 20 Blood Pressure 179/79 H 176/84 H 168/67 H Pulse Oximetry 100 Oxygen Delivery Oxygen Flow Rate Fraction of Inspired Oxygen 03/15/24 10:09 03/15/24 11:45 03/15/24 13:59 Temperature 97.5 F L 97.9 F Pulse Rate 71 58 L 63 Respiratory Rate 20 20 Blood Pressure 179/79 H 174/59 H Pulse Oximetry 100 Oxygen Delivery Oxygen Flow Rate 0 Fraction of Inspired Oxygen 0 03/15/24 20:00 03/15/24 20:35 03/15/24 20:38 Temperature 98.4 F 98.4 F Pulse Rate 71 70 Respiratory Rate 18 18 Blood Pressure 147/61 H 153/58 H Pulse Oximetry 97 98 Oxygen Delivery Room Air Oxygen Flow Rate Fraction of Inspired Oxygen 03/15/24 20:41 03/16/24 00:00 Temperature 98.4 F 98.3 F Pulse Rate 65 82 Respiratory Rate 18 16 Blood Pressure 148/69 H 145/66 H Pulse Oximetry 100 98 Oxygen Delivery Oxygen Flow Rate Fraction of Inspired Oxygen Intake/Output Intake/Output: Intake & Output 03/13/24 03/14/24 03/15/24 03/16/24 23:59 23:59 23:59 23:59 Intake Total 1050 460 880 Output Total 0 1354 Balance 1050 460 -474 Meds/Results Medications: Active Medications Generic Name Dose Route Start Last Admin Trade Name Freq PRN Reason Stop Dose Admin Acetaminophen 650 mg 03/13/24 21:57 Acetaminophen 325 Mg Tablet PO Q6H PRN Mild Pain (1-3) or Fever Acetaminophen 1,000 mg 03/14/24 21:00 03/15/24 22:08 Acetaminophen 500 Mg Tablet PO 1,000 mg HS JERMAINE Administration Hydrocodone Bitart/Acetaminophen 1 tab 03/14/24 00:44 03/14/24 01:59 Hydrocodone/Acetaminophen (*Crx) 5-325 Mg Tablet PO 1 tab Q6H PRN Administration pain (scale score 4-6) Aspirin 81 mg 03/14/24 09:00 03/15/24 10:10 Aspirin 81 Mg Enteric Tablet PO 81 mg DAILY JERMAINE Administration Atorvastatin Calcium 80 mg 03/14/24 21:00 03/15/24 22:08 Atorvastatin 40 Mg Tablet PO 80 mg HS JERMAINE Administration Benzocaine 1 lozenge 03/16/24 02:29 Benzocaine/Menthol (*Bkc) 18 Ea Lozenge PO PRN PRN Sore Throat Calcium Acetate 2,001 mg 03/14/24 08:00 03/15/24 16:54 Calcium Acetate 667 Mg Tablet PO 2,001 mg TIDWM JERMAINE Administration Carvedilol 25 mg 03/14/24 09:00 03/15/24 22:09 Carvedilol 25 Mg Tablet PO 25 mg Q12HR JERMAINE Administration Clonidine HCl 1 patch 03/20/24 09:00 Clonidine 0.2 Mg/24 Hr Patch TRANSDERM Sa@0900 [facility] Dextrose 12.5 gm 03/13/24 21:57 Dextrose 50% 25 Gm/50 Ml Syringe IV PUSH PRN PRN Hypoglycemia Protocol Diltiazem HCl 120 mg 03/14/24 09:00 Diltiazem Hcl 12 Hr 60 Mg Cap.12hr PO Q12HR [facility] Diphenhydramine HCl 50 mg 03/14/24 21:00 03/15/24 22:08 Diphenhydramine Hcl Cap 25 Mg Capsule PO 50 mg HS JERMAINE Administration Famotidine 10 mg 03/14/24 13:57 03/14/24 14:33 Famotidine 10 Mg Tablet PO 10 mg Q6H PRN Administration Indigestion Fidaxomicin 200 mg 03/14/24 09:00 03/15/24 22:09 Fidaxomicin 200 Mg Tablet PO 03/24/24 08:59 200 mg Q12HR JERMAINE Administration Furosemide 160 mg 03/14/24 09:00 03/15/24 16:54 Furosemide 80 Mg Tablet PO 160 mg BID JERMAINE Administration Gabapentin 600 mg 03/15/24 06:00 03/16/24 05:35 Gabapentin 300 Mg Capsule PO 600 mg Q8HR JERMAINE Administration Gentamicin Sulfate 1 applic 03/14/24 21:00 03/15/24 22:09 Gentamicin Sulfate 0.1% Cr 15 Gm Tube TOPICAL 1 applic QHS JERMAINE Administration Glucagon 1 mg 03/13/24 21:57 Glucagon For Inj 1 Mg Vial IM PRN PRN Hypoglycemia Protocol Glucose 15 gm 03/13/24 21:57 Glucose Oral Gel 15 Gm Of Glucse In 37.5 Gm Tube PO PRN PRN Hypoglycemia Protocol Heparin Sodium (Porcine) 5,000 units 03/13/24 22:10 03/15/24 22:09 Heparin Sodium 5,000 Units/Ml Vial SUB-Q 5,000 units Q12HR JERMAINE Administration Hydralazine HCl 30 mg 03/14/24 14:00 03/16/24 05:35 Hydralazine 10 Mg Tablet PO 30 mg Q8HR JERMAINE Administration Dextrose 1,000 mls @ 100 mls/hr 03/13/24 21:57 Dextrose 5% 1,000 Ml IVPB PRN PRN Hypoglycemia Protocol Insulin Aspart 1 - 3 units 03/13/24 22:10 03/15/24 22:10 Insulin Aspart (*Bkc) 100 Units/Ml SUB-Q Not Given HS JERMAINE Protocol Insulin Aspart 3 - 6 units 03/14/24 08:00 03/15/24 16:56 Insulin Aspart (*Bkc) 100 Units/Ml SUB-Q 3 units TIDWM JERMAINE Administration Protocol Insulin Glargine 30 units 03/14/24 09:00 03/15/24 22:10 Insulin Glargine (*Bkc) 100 Units/Ml SUB-Q Not Given Q12HR JERMAINE Ipratropium [place] 2 spray 03/14/24 17:00 03/16/24 06:55 Ipratropium Nasal [place] 0.03% 15 Ml Bottle NASAL Not Given TID JERMAINE Levothyroxine Sodium 112 mcg 03/14/24 06:30 03/16/24 05:35 Levothyroxine Sodium 112 Mcg Tablet PO 112 mcg DAILY@0630 JERMAINE Administration Lisinopril 20 mg 03/14/24 09:00 03/15/24 22:09 Lisinopril 20 Mg Tablet PO 20 mg Q12HR JERMAINE Administration Lorazepam 0.5 mg 03/14/24 00:44 03/14/24 01:59 Lorazepam (*Crx) 0.5 Mg Tablet PO 0.5 mg HS PRN Administration Anxiety Miscellaneous Information 0 each 03/14/24 00:01 03/16/24 05:36 Tadalafil Is Non-Formulary. Use Pt Own Supply? XX 04/13/24 00:00 Not Given [facility] Miscellaneous Information 0 each 03/14/24 00:01 03/16/24 05:35 Diltiazem 120 Mg 12 Hr Release Is Non-Formulary. We Stock Diltiazem 240 Mg 24 Hr Releas XX 04/13/24 00:00 Not Given [facility] Multivitamins/Minerals 1 tablet 03/14/24 09:00 03/15/24 22:09 Opti-Gen Tab PO 1 tablet Q12HR JERMAINE Administration Non-Formulary Medication 5 mg 03/14/24 21:00 Tadalafil PO 04/13/24 20:59 HS JERMAINE Ondansetron HCl 4 mg 03/13/24 19:41 03/14/24 02:04 Ondansetron Inj 4 Mg/2 Ml Vial IV PUSH 4 mg Q4H PRN Administration Nausea Pantoprazole Sodium 40 mg 03/14/24 09:00 03/15/24 22:08 Pantoprazole 40 Mg Tablet PO 40 mg Q12HR JERMAINE Administration Sodium Chloride 1 spray 03/13/24 21:42 03/13/24 23:57 Saline 0.65% Ney Soln 44 Ml Btl NASAL 1 spray Q6HR PRN Administration Congestion Vitamin B Complex/Folic Acid 1 cap 03/14/24 12:00 03/15/24 12:29 Vitamin B Cmplx/Vit C/Folic Ac 1 Capsule PO 1 cap NOON JERMAINE Administration Vitamin D 5,000 units 03/14/24 12:00 03/15/24 12:29 Cholecalciferol 1,000 Units Tablet PO 5,000 units NOON [facility] Administration Radiology Results: ITS Impressions Chest X-Ray 03/13/24 15:34 IMPRESSION: No focal infiltrate or effusion. Abdomen X-Ray 03/14/24 07:16 Impression: No significant abnormality is seen. Venous Doppler Study 03/14/24 12:19 Impression: No evidence of deep vein thrombosis involving the bilateral lower extremities. Labs Labs: Laboratory Results - last 24 hr 03/15/24 03/15/24 03/15/24 07:55 08:32 10:59 WBC 7.9 RBC 3.04 L Hgb 9.5 L Hct 30.7 L MCV 101.0 H D MCH 31.3 MCHC 30.9 L RDW 16.2 H Plt Count 152 MPV 11.3 H Immature Gran % (Auto) 2.5 H Neut % (Auto) 75.5 H Lymph % (Auto) 8.2 L [place] % (Auto) 12.5 H Eos % (Auto) 1.0 Baso % (Auto) 0.3 Lymph # (Auto) 0.65 L [place] # (Auto) 1.0 H Eos # (Auto) 0.1 Baso # (Auto) 0.0 Abs Immat Gran (auto) 0.20 H Absolute Neuts (auto) 6.0 Absolute Nucleated RBC 0.020 H Nucleated RBC % 0.3 H Sodium 133 L Potassium 3.7 Chloride 96 L Carbon Dioxide 23 Anion Gap 14 H BUN 50 H Creatinine 10.22 H Estim Creat Clear Calc 8 Estimated GFR 5 L Glucose 151 H POC Capillary Glucose 60 L 81 Calcium 8.7 Phosphorus 7.7 H Magnesium 1.7 Albumin 2.9 L 03/15/24 03/15/24 03/15/24 12:03 16:46 20:49 WBC RBC Hgb Hct MCV MCH MCHC RDW Plt Count MPV Immature Gran % (Auto) Neut % (Auto) Lymph % (Auto) [place] % (Auto) Eos % (Auto) Baso % (Auto) Lymph # (Auto) [place] # (Auto) Eos # (Auto) Baso # (Auto) Abs Immat Gran (auto) Absolute Neuts (auto) Absolute Nucleated RBC Nucleated RBC % Sodium Potassium Chloride Carbon Dioxide Anion Gap BUN Creatinine Estim Creat Clear Calc Estimated GFR Glucose POC Capillary Glucose 175 H 217 H 185 H Calcium Phosphorus Magnesium Albumin 03/16/24 05:35 WBC 6.8 RBC 2.79 L Hgb 8.6 L Hct 26.9 L MCV 96.4 MCH 30.8 MCHC 32.0 RDW 16.1 H Plt Count 147 L MPV 11.0 H Immature Gran % (Auto) 3.8 H Neut % (Auto) 69.1 Lymph % (Auto) 12.6 L [place] % (Auto) 13.0 H Eos % (Auto) 1.2 Baso % (Auto) 0.3 Lymph # (Auto) 0.86 L [place] # (Auto) 0.9 H Eos # (Auto) 0.1 Baso # (Auto) 0.0 Abs Immat Gran (auto) 0.26 H Absolute Neuts (auto) 4.7 Absolute Nucleated RBC 0.020 H Nucleated RBC % 0.3 H Sodium 133 L Potassium 3.4 Chloride 95 L Carbon Dioxide 27 Anion Gap 11 BUN 46 H Creatinine 11.20 H Estim Creat Clear Calc 7 Estimated GFR 5 L Glucose 130 H POC Capillary Glucose Calcium 9.1 Phosphorus Magnesium Albumin
--- NOTE | 2024-03-16 07:57 | P.DS_ITS ---
DS: Admitting Diagnosis Discharge Date 03/16/24 Admitting Diagnosis (1) Anxiety: Code(s): F41.9 - Anxiety disorder, unspecified Status: Acute (2) Hypertensive emergency: Code(s): I16.1 - Hypertensive emergency Status: Acute (3) Non-ST elevation DE (NSTEMI): Code(s): I21.4 - Non-ST elevation (NSTEMI) myocardial infarction Status: Acute (4) Chronic diastolic (congestive) heart failure: Code(s): I50.32 - Chronic diastolic (congestive) heart failure Status: Chronic (5) Diabetes mellitus: Code(s): E11.9 - Type 2 diabetes mellitus without complications Status: Chronic (6) Insulin dependent type 2 diabetes mellitus: Code(s): E11.9 - Type 2 diabetes mellitus without complications; Z79.4 - FCI (current) use of insulin Status: Acute (7) End-stage renal disease on peritoneal dialysis: Code(s): N18.6 - End stage renal disease; Z99.2 - Dependence on renal dialysis Status: Chronic (8) ESRD on dialysis: Code(s): N18.6 - End stage renal disease; Z99.2 - Dependence on renal dialysis Status: Acute DS: Discharge Diagnosis Discharge Diagnosis (1) Anxiety: Code(s): F41.9 - Anxiety disorder, unspecified Status: Acute (2) Hypertensive emergency: Code(s): I16.1 - Hypertensive emergency Status: Acute (3) Non-ST elevation DE (NSTEMI): Code(s): I21.4 - Non-ST elevation (NSTEMI) myocardial infarction Status: Acute (4) Chronic diastolic (congestive) heart failure: Code(s): I50.32 - Chronic diastolic (congestive) heart failure Status: Chronic (5) Diabetes mellitus: Code(s): E11.9 - Type 2 diabetes mellitus without complications Status: Chronic (6) Insulin dependent type 2 diabetes mellitus: Code(s): E11.9 - Type 2 diabetes mellitus without complications; Z79.4 - FCI (current) use of insulin Status: Acute (7) End-stage renal disease on peritoneal dialysis: Code(s): N18.6 - End stage renal disease; Z99.2 - Dependence on renal dialysis Status: Chronic (8) ESRD on dialysis: Code(s): N18.6 - End stage renal disease; Z99.2 - Dependence on renal dialysis Status: Acute DS: Summary Hospital Course Hospital Course: This is a 69-year-old male with end-stage renal disease on peritoneal dialysis, hypertension, dyslipidemia, congestive heart failure, coronary artery disease with history of stents, obstructive sleep apnea, insulin-dependent type 2 diabetes mellitus, hypothyroidism, benign prostatic hyperplasia, Clostridium difficile colitis, renal cell carcinoma, depression, anxiety, and other comorbidities who presented to the emergency department via private vehicle with multiple complaints. The patient and his provide the following history. He tells me that he has ?felt off? for awhile with symptoms to include fatigue, lightheadedness and dizziness with position changes, and a steady, burning pain throughout the anterior upper chest which has been going on for some time. The last 1 week however his symptoms seem to have intensified. Last night he accidentally took two Ativan instead of one and he woke up this morning feeling disoriented and more weak than usual. The disorientation has gone away. He has been evaluated by Cardiology and Gastroenterology for the chronic burning chest pain and apparently saw his pizzamaker at [facility] couple of weeks ago and was told everything was okay. A couple of weeks ago he saw Gastroenterology who change his PPI to lansoprazole 30 mg twice daily and started metoclopramide 10 mg at bedtime for gastroparesis symptoms. He is supposed to follow-up with them in the next couple of months. He denies fever, chills, sweats, syncope, near syncope, focal weakness, paresthesias, facial droop, difficulty speaking and swallowing, headache, neck ache, sinus congestion, sore throat, cough, exertional chest pain, palpitations, shortness of breath, cough, vomiting, and calf pain. He urinates very infrequently and has not had any urinary symptoms. It sounds as though he has issues with intermittent loose stools and constipation for which he will occasionally take I modium or a laxative as needed. In the ED: He was afebrile on arrival with stable vital signs. Labs were significant for WBC count of 8.4, hemoglobin 9.1, platelet 141, sodium 133, potassium 3.1, chloride 92, anion gap 14, BUN 43, creatinine 9.60, lactic acid 1.8, calcium 7.8, phosphorus 6.8, magnesium 1.2, troponin 0.107, TSH 1.390. He was negative for influenza, RSV, and COVID. Chest x-ray showed no focal infiltrate or effusion. EKG showed sinus rhythm with left anterior fascicular block and prolonged QT interval with a QTC of 495. He was given magnesium sulfate 2 g and potassium chloride 40 mEq and he is being admitted in this setting for closer monitoring and evaluation. The following med issues have been addressed during hospitalization C. difficile colitis: Code(s): A04.72 - Enterocolitis due to Clostridium difficile, not specified as recurrent Status: Acute Assessment and Plan: * Symptoms improving on fidaxomicin for 10 days. 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 Continue insulin sliding scale a.c. and q.h.s. Hypoglycemic protocol is initiated 03/16: Patient has good appetite, no hypoglycemia Resume home medication Elevated troponin: Code(s): R79.89 - Other specified abnormal findings of blood chemistry Status: Acute no chest pain, possilbe due to ESRD (3) Electrolyte abnormality: Code(s): E87.8 - Other disorders of electrolyte and fluid balance, not elsewhere classified Status: Acute Assessment and Plan: * 03/14/2024 sodium 135 potassium 3.6 magnesium 1.4 End-stage renal disease on peritoneal dialysis: Code(s): N18.6 - End stage renal disease; Z99.2 - Dependence on renal dialysis Status: Chronic Assessment and Plan: * Creatinine 10.49 on 03/14/2024 * Nephrology consulted * Normocytic anemia: Code(s): D64.9 - Anemia, unspecified Status: Inactive Assessment and Plan: * Anemia of chronic kidney disease * Stable Hypertension: Qualifiers: Hypertension type: primary hypertension Qualified Code(s): I10 - Essential (p rimary) hypertension Code(s): I10 - Essential (primary) hypertension Status: Chronic Assessment and Plan: * 03/14/2024 controlled Continue home medication discharge Hypothyroidism: Code(s): E03.9 - Hypothyroidism, unspecified Status: Acute Assessment and Plan: * Continue home regimen Gastroesophageal reflux disease: Code(s): K21.9 - Gastro-esophageal reflux disease without esophagitis Status: Acute Assessment and Plan: * Add p.r.n. famotidine Obstructive sleep apnea: Code(s): G47.33 - Obstructive sleep apnea (adult) (pediatric) Status: Acute Assessment and Plan: * Continue home CPAP Time Spent with Patient Time attestation: Total time spent providing and/or coordinating discharge services: Exam Narrative: HEENT: PERRL, sclerae nonicteric, pharyngeal mucosa pink and intact NECK: No JVD CHEST: Clear to auscultation. Normal effort. HEART: NL S1/S2, regular, no murmur ABDOMEN: BS+, soft, no palpable mass, PD catheter noted. EXTREMITIES: No cyanosis, edema, or clubbing NEUROLOGIC: CN intact and symmetric to inspection. MUSCULOSKELETAL: Tone and strength symmetric. PSYCH: Alert. Oriented to person, place, and time. Affect blunted. DS: Data Data Completed and Pending Labs on day of discharge: Labs from last 24 hours 03/16/24 03/15/24 03/15/24 05:35 20:49 16:46 WBC 6.8 RBC 2.79 L Hgb 8.6 L Hct 26.9 L MCV 96.4 MCH 30.8 MCHC 32.0 RDW 16.1 H Plt Count 147 L MPV 11.0 H Immature Gran % (Auto) 3.8 H Neut % (Auto) 69.1 Lymph % (Auto) 12.6 L Barnwell % (Auto) 13.0 H Eos % (Auto) 1.2 Baso % (Auto) 0.3 Lymph # (Auto) 0.86 L Barnwell # (Auto) 0.9 H Eos # (Auto) 0.1 Baso # (Auto) 0.0 Abs Immat Gran (auto) 0.26 H Absolute Neuts (auto) 4.7 Absolute Nucleated RBC 0.020 H Nucleated RBC % 0.3 H Sodium 133 L Potassium 3.4 Chloride 95 L Carbon Dioxide 27 Anion Gap 11 BUN 46 H Creatinine 11.20 H Estim Creat Clear Calc 7 Estimated GFR 5 L Glucose 130 H POC Capillary Glucose 185 H 217 H Calcium 9.1 Phosphorus Magnesium Albumin 03/15/24 03/15/24 03/15/24 12:03 10:59 08:32 WBC 7.9 RBC 3.04 L Hgb 9.5 L Hct 30.7 L MCV 101.0 H D MCH 31.3 MCHC 30.9 L RDW 16.2 H Plt Count 152 MPV 11.3 H Immature Gran % (Auto) 2.5 H Neut % (Auto) 75.5 H Lymph % (Auto) 8.2 L Barnwell % (Auto) 12.5 H Eos % (Auto) 1.0 Baso % (Auto) 0.3 Lymph # (Auto) 0.65 L Barnwell # (Auto) 1.0 H Eos # (Auto) 0.1 Baso # (Auto) 0.0 Abs Immat Gran (auto) 0.20 H Absolute Neuts (auto) 6.0 Absolute Nucleated RBC 0.020 H Nucleated RBC % 0.3 H Sodium 133 L Potassium 3.7 Chloride 96 L Carbon Dioxide 23 Anion Gap 14 H BUN 50 H Creatinine 10.22 H Estim Creat Clear Calc 8 Estimated GFR 5 L Glucose 151 H POC Capillary Glucose 175 H 81 Calcium 8.7 Phosphorus 7.7 H Magnesium 1.7 Albumin 2.9 L 03/15/24 07:55 WBC RBC Hgb Hct MCV MCH MCHC RDW Plt Count MPV Immature Gran % (Auto) Neut % (Auto) Lymph % (Auto) Barnwell % (Auto) Eos % (Auto) Baso % (Auto) Lymph # (Auto) Barnwell # (Auto) Eos # (Auto) Baso # (Auto) Abs Immat Gran (auto) Absolute Neuts (auto) Absolute Nucleated RBC Nucleated RBC % Sodium Potassium Chloride Carbon Dioxide Anion Gap BUN Creatinine Estim Creat Clear Calc Estimated GFR Glucose POC Capillary Glucose 60 L Calcium Phosphorus Magnesium Albumin Discharge Plan Discharge Attending physician on discharge: Mallorie Valencia Consulting providers: Pau Elliott Discharging Clinician: Mallorie Valencia Anticipated Discharge Date/Time: 03/16/24 07:57 Patient Disposition: Home, Self-Care Activity: as tolerated Diet: as tolerated and renal Patient Instructions: Antibiotic Form, Heart Failure (DC), Gestational Diabetes Diet (DC), C. Diff (Clostridioides Difficile) Infection (DC) Patient Language: Khmer Stand Alone Forms: General Discharge Information Follow-up/Referrals: Jeff Strickland MD [Primary Care Provider] - (Patient needs to see primary care doctor in 1 week) Discharge Medications: New Dificid 200 mg Tablet 200 mg PO Q12HR Qty: 14 0RF Continued tadalafil 5 mg tablet 5 mg PO HS aspirin [Sami Low Dose Aspirin] 81 mg Tablet,Delayed Release (Dr/Ec) 81 mg PO DAILY ICaps AREDS2 (copper citrate) 250 mg-200 unit -12.5 mg-1 mg Tablet 1 tablet PO Q12H carvedilol [Coreg] 25 mg tablet 25 mg PO Q12H (DME) pen needle, diabetic [BD Ultra-Fine Micro Pen Needle] 32 gauge x 1/4 needle See Rx Instructions .ROUTE .MEDSUPPLY Qty: 200 11RF Rx Instructions: inject five times daily insulin glargine [Basaglar KwikPen U-100 Insulin] 100 unit/mL (3 mL) insulin pen 30 unit subcut Q12H Rx Instructions: morning and hs lisinopril 20 mg tablet 20 mg PO BID lansoprazole 30 mg capsule,delayed release(DR/EC) 30 mg PO BID Qty: 60 3RF metoclopramide HCl [Reglan] 10 mg tablet 10 mg PO BID Qty: 60 3RF (DME) OneTouch Ultra Blue Test Strip Strip See Rx Instructions .ROUTE .MEDSUPPLY Rx Instructions: Test blood sugar three times per day. clonidine 0.2 mg/24 hr patch weekly 1 patch transdermal WEEKLY insulin aspart U-100 [Novolog FlexPen U-100 Insulin] 100 unit/mL (3 mL) insulin pen See Rx Instructions .ROUTE .COMPLEX Rx Instructions: sliding scale tidwm cholecalciferol (vitamin D3) [Vitamin D3] 125 mcg (5,000 unit) Tablet 125 mcg PO QNOON Dialyvite 800-Ultra D 0.8-2,000 mg-unit Tablet 1 tablet PO QNOON furosemide 80 mg Tablet 160 mg PO BID diphenhydramine-acetaminophen [Tylenol PM Extra Strength] 25-500 mg Tablet 2 tablet PO HS diltiazem HCl 120 mg capsule,extended release 12 hr 120 mg PO Q12H atorvastatin 80 mg tablet 80 mg PO HS levothyroxine 112 mcg tablet 112 mcg PO DAILY metolazone 5 mg tablet 5 mg PO DAILY pantoprazole 40 mg tablet,delayed release (DR/EC) 40 mg PO Q12H hydrocodone-acetaminophen 5-325 mg tablet 1 tablet PO Q6H PRN (Reason: pain (scale score 4-6)) gabapentin 300 mg capsule 300 mg PO Q8H fenofibrate nanocrystallized 145 mg tablet 145 mg PO QNOON calcium acetate(phosphat bind) 667 mg capsule 2,001 mg PO TIDWM (DME) blood-glucose meter [Mango DSPuch Ultra2 Meter] Misc See Rx Instructions .ROUTE .MEDSUPPLY Qty: 1 0RF Rx Instructions: As directed (DME) lancets [OneTouch Delica Lancets] 30 gauge misc See Rx Instructions .ROUTE .MEDSUPPLY Qty: 100 3RF Rx Instructions: As directed hydralazine 10 mg tablet 30 mg PO TID lorazepam [Ativan] 0.5 mg tablet 0.5 mg PO HS PRN (Reason: Anxiety) Qty: 30 0RF Date of admission: 03/15/24 14:23 Primary Care Provider: Jeff Strickland Admitting Provider: Shan Wei Attending physician on admission: Shan Wei Condition: Stable
[2024-03-16 08:00] VITALS: BP 163/79; PULSE 58; RESP 20; TEMP 35.6; O2SAT 97
[2024-03-16 08:07] VITALS: BP 133/61; BP 153/68
[2024-03-16 08:26] LABS: Glucose Point of Care 150 mg/dl (65-105)
[2024-03-16] MEDS: FUROSEMIDE 80 MG TABLET 160 MG PO (08:34)
[2024-03-16] MEDS: FIDAXOMICIN 200 MG TABLET PO (08:34)
[2024-03-16] MEDS: OPTI-GEN TAB 1 TABLET PO (08:34)
[2024-03-16] MEDS: lisinopriL 20 MG TABLET PO (08:35)
[2024-03-16] MEDS: HEPARIN SODIUM 5,000 UNITS/ML VIAL 5000 UNITS SUB-Q (08:35)
[2024-03-16] MEDS: PANTOPRAZOLE 40 MG TABLET PO (08:35)
[2024-03-16] MEDS: CALCIUM ACETATE 667 MG TABLET 2001 MG PO (08:35)
[2024-03-16] MEDS: ASPIRIN 81 MG ENTERIC TABLET PO (08:35)
[2024-03-16] MEDS: INSULIN GLARGINE (*BKC) 100 UNITS/ML 30 UNITS SUB-Q (08:36)
[2024-03-16 08:37] VITALS: PULSE 57
[2024-03-16] MEDS: carvediloL 25 MG TABLET PO (08:37)
== END 2024-03-16 09:35 | disposition home or self-care (01) | DRG 291 ==
LOC: ANHED 18:12 → ANHIMU 20:11 → ANH3MEDSUR 03-14 16:29
PROVIDERS: Internal Medicine; Internal Medicine Nephrology; Physician Assistant; Admitting Provider Internal Medicine; Emergency Provider Emergency Medicine; PCP Family Medicine; Visit Provider Hospitalist
DX: I13.2 Hypertensive heart and chronic kidney disease with heart failure and with stage 5 chronic kidney disease, or end stage renal disease (principal); N18.6 End stage renal disease; I16.1 Hypertensive emergency; A04.72 Enterocolitis due to Clostridium difficile, not specified as recurrent; I50.32 Chronic diastolic (congestive) heart failure; D63.1 Anemia in chronic kidney disease; E11.22 Type 2 diabetes mellitus with diabetic chronic kidney disease; E78.5 Hyperlipidemia, unspecified; E03.9 Hypothyroidism, unspecified; F41.8 Other specified anxiety disorders; G47.33 Obstructive sleep apnea (adult) (pediatric); I25.10 Atherosclerotic heart disease of native coronary artery without angina pectoris; I25.2 Old myocardial infarction; K21.9 Gastro-esophageal reflux disease without esophagitis; N40.0 Benign prostatic hyperplasia without lower urinary tract symptoms; Z99.2 Dependence on renal dialysis; Z95.5 Presence of coronary angioplasty implant and graft; Z90.5 Acquired absence of kidney; Z85.528 Personal history of other malignant neoplasm of kidney; Z79.4 Long term (current) use of insulin; Z20.822 Contact with and (suspected) exposure to COVID-19
CPT/HCPCS: 36415; 71046; 74018; 80048; 80053; 80069; 82274; 82330; 82607; 82728; 82746; 82948; 83036; 83540; 83550; 83605; 83690; 83735; 84100; 84443; 84484; 85025; 85027; 85380; 85610; 85730; 86706; 87340; 87493; 87637; 90945; 93005; 93970; 96361; 96365; 96375; 96376; 97161; 99285; A9270; G0378; J1644; J1815; J2405; J3475; J7030

== ENCOUNTER 2024-03-17 12:26 | Outpatient (CLI) | payer MEDICARE, SELFPAY ==
--- NOTE | ~2024-03-17 | MR_ITS ---
EXAMINATION: MR knee LT wo con DATE: 03/17/2024 13:10 INDICATION: Left knee pain TECHNIQUE: Magnetic resonance imaging (MRI) of the left knee was performed without intravenous contra st. Sequences included coronal PD-weighted FSE, coronal PD-weighted FS FSE, sagittal T2-weighted FSE , sagittal PD-weighted FS FSE and axial PD weighted fat saturated FSE. COMPARISON: None. FINDINGS: Medial compartment: Full-thickness radial tear near the posterior root of the medial meniscus with longitudinal horizonta l tear extending to the inner free edge of the more medial posterior horn. There is partial thickness cartilage loss with mild chondral surface irregularity along the anterior weightbearing medial femor al condyle. Small region of subarticular edema-like signal change at the medial aspect of the medial tibial plateau. Lateral compartment: There are 2 separate vertical longitudinal tears which extend to contact the inferior articular surfa ce at the mid and peripheral aspects of the posterior horn and body the lateral meniscus. Articular c artilage is normal. Patellofemoral compartment: Deep chondral fissuring without degenerative subchondral changes at the central aspect and medial tro chlea. There is some additional shallow chondral ulceration at the inferior aspect of the patellar ap ical ridge and medial facet. Ligaments and tendons: Anterior and posterior cruciate ligaments are normal. There is thickening and mild increased intrasub stance signal at the posterior aspect of the proximal medial collateral ligament without significant surrounding edema consistent with scarring related to chronic sprain. The fibular collateral ligament complex is normal. Minimal distal quadriceps tendinopathy without tear. The patellar tendon is cary l. The visualized medial and lateral hamstring tendons as well as the iliotibial band are normal. Fluid: Small left knee joint effusion. No loose osteochondral bodies identified. There is diffuse mild subcu taneous edema about the anterior knee and proximal calf. Osseous/other: Aside from a small focus of subarticular edema-like signal change at the medial tibial plateau there is normal marrow signal. No fracture or pathologic marrow replacing process. IMPRESSION: 1. Tears of the medial and lateral menisci. 2. 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 Reviewed, dictated and finalized at location B. UTER AIDED DESIGN DESIGNER
== END 2024-03-17 12:27 | disposition home or self-care (01) ==
LOC: GOSHIMG 12:27
PROVIDERS: PCP Orthopaedic Surgery; Visit Provider Anesthesiology
DX: S83.282A Other tear of lateral meniscus, current injury, left knee, initial encounter (principal); S83.242A Other tear of medial meniscus, current injury, left knee, initial encounter; X58.XXXA Exposure to other specified factors, initial encounter; M17.12 Unilateral primary osteoarthritis, left knee
CPT/HCPCS: 73721

== ENCOUNTER 2024-03-28 14:29 | Emergency (ER) | payer MEDICARE, SELFPAY ==
--- NOTE | ~2024-03-28 | XR_ITS ---
HISTORY: pain COMPARISON: None TECHNIQUE: 3 views of the right knee were performed FINDINGS: Right total knee prosthetic is identified. The components are in good position. No acute periprosthet ic fracture is present. No suprapatellar joint effusion. The infrapatellar joint space is clear. Extensive vascular calcifications are identified. IMPRESSION: No acute or subacute periprosthetic fracture, as detailed above. Reviewed, dictated and finalized at location A. IC WELDER
--- NOTE | ~2024-03-28 | CT_ITS ---
History: Remote history of a fall PROCEDURE: CT lumbar spine without intravenous contrast. COMPARISON: None TECHNIQUE: Multiple contiguous axial images of the lumbar spine were performed without the administration of int ravenous contrast. DLP: 1232 mGy-cm FINDINGS: Preservation of the normal lordotic curvature of the lumbar spine is identified. No acute compression fractures are present. No soft tissue abnormality is noted. Significant degenerative disease is identified, with osteophyte formation (some bridging), disc space narrowing and endplate changes. Moderate facet hypertrophy is also noted. Densely calcified atherosclerotic disease. Multiple rounded foci of decreased attenuation are identified within the bilateral kidneys, consisten t with cysts. The patient's known renal cell carcinoma of the left kidney is not well seen on this noncontrast exam ination Impression: No acute compression fracture within the lumbar spine, as detailed above. Reviewed, dictated and finalized at location A. ULOSKELETAL PHYSICIAN Impression: No acute compression fracture within the lumbar spine, as detailed above.
--- NOTE | ~2024-03-28 | CT_ITS ---
Clinical indication:Fall on left knee 1 month earlier. COMPARISON:Reference is made to an MRI examination of the left knee performed 03/17/2024 which demonst rated tears of the medial and lateral menisci with medial compartment predominate tricompartmental os teoarthritis. No findings on MRI to suggest acute or subacute fracture. TECHNIQUE: Multiple contiguous axial images of the left knee were performed without the administratio n of intravenous contrast. FINDINGS: No acute or subacute fractures are appreciated. Densely calcified atherosclerotic disease. No asymmetry within the overlying soft tissues. Small suprapatellar joint effusion. The infrapatellar joint space is clear. No acute or subacute fracture, as detailed above. IMPRESSION: Small suprapatellar joint effusion. No acute fracture. Reviewed, dictated and finalized at location A. HER CARVER
--- OUTSIDE RECORDS SUMMARY | 2024-03-28 14:32 | XMS_ITS | Encounter Summary ---
Author Organization [facility] Address [facility] [place] [address] Care Team Providers Care Placement Coordinator Name Role Phone Deandre Bojorquez MD Unavailable [phone] Jeff Strickland MD Primary Care Provider [phone] Encounter Details Date Type Department Care Team (Late st Contact Info) Description 02/04/2024 Lab Requisition [facility] MAIN LAB [address] [place] [id number] Alan Davenport MD [facility] [place] [address] Social History Tobacco Use Types Packs/Day Years [...] Info) Description 08/04/2024 11:30 AM CDT Appointment [facility] MRI [address] [place] [address] Thomas Mendoza MD [address] [facility] 2L DIV [place] [address] 08/04/2024 1:30 PM CDT Office Visit [facility] - Urology [address] [place] [address] Thomas Mendoza MD [address] [facility] 2L [place] [address] documented as of this encounter Procedures Procedure Name Priority Date/Time Associated Diagnosis Comments HOLD HLA SPECIMEN Routine 01/27/2024 3:2 3 PM BOX ANNEALER documented in this encounter Results * HOLD HLA SPECIMEN (01/27/2024 3:23 PM BOX ANNEALER) Hold HLA Specimen 02/04/2024 4:31 PM BOX ANNEALER [facility] ([facility]) Comment:The Hold HLA specime n has been received into the lab and will be held for 5 years at 4 degrees. Blood BLOOD SPECIMEN / Unknown 01/27/2024 3:23 PM BOX ANNEALER 02/04/2024 3:23 PM BOX ANNEALER Alan Davenport MD LAB - BLOOD BANK ORD ERABLES [facility] ([employer]) [address] documented in this encounter Visit Diagnoses Not on filedocumented in this encounter Care Teams Placement Coordinator Relationship Specialty Start Date End Date Jeff Strickland MD [address] [place] [address] PCP - General 03/05/18 [place] [address] [facility] [address] [place] [address] Orthopedic Surgery 03/28/17 documented as of this encounter
--- OUTSIDE RECORDS SUMMARY | 2024-03-28 14:32 | XMS_ITS | Encounter Summary ---
Author Organization [facility] Address [address] [place] [address] Phone Care Team Providers Care Motor Runner Name Role Phone Jeff Strickland MD Primary Care Provider Chan Nicholas MD Unavailable [phone] Alan Mccall MD Unavailable [phone] Lorna Lantigua MD Unavailable [phone] Juliette Savage RN Unavailable [phone] Pepito Haro MD PhD Unavailable Solange Guido MD Unavailable [phone] Encounter Details Date Type Department Care Team (Late st Contact Info) Description 05/02/2021 Ophth Exam [facility] Ophthalmology [address] [place] [address] 1st [place] [address] Corina Ventura MD PhD [address] [address] Social History Tobacco Use Types [...] on file Legal Sex Male 2:23 AM CLINICAL INFORMATICS MANAGER Gender Identity Not on file Sexual Orientation [...] COVID: Suspected 03/24/2023 03/24/2023 03/24/2023 5:45 PM CLINICAL INFORMATICS MANAGER COVID19 03/24/2023 03/24/2023 04/08/2023 3:06 AM CLINICAL INFORMATICS MANAGER COVID: Recovered Comment:Added based on recent COVID [...] arcade Normal Periphery Normal Normal Care Teams Motor Runner Relationship Specialty Start Date End Date Jeff Strickland MD [address] [place] [address] PCP - General Family Medicine 04/02/18 Chan Nicholas MD [address] [place] [address] Consulting Physician Gastroenterology 11/24/18 Alan Mccall MD [address] [place] [address] Referring Physician Nephrology 11/24/18 Lorna Lantigua MD [address] [place] [address] Consulting Physician Cardiology 11/24/18 07/22/23 Juliette Savage, RN [address] [place] [address] Nurse Navigator 06/04/21 03/14/22 Pepito Haro MD PhD [address] [place] [address] Consulting Physician Neurosurgery 12/03/22 Solange Guido MD [address] [facility] [address] [place] [address] Referring Physician Cardiovascular Disease 07/23/23 documented as of this encounter
--- OUTSIDE RECORDS SUMMARY | 2024-03-28 14:32 | XMS_ITS | Encounter Summary ---
Author Organization [facility] Address [address] [facility] [place] [address] Care Team Providers Care Lastex Thread Winder Name Role Phone Deandre Bojorquez MD Unavailable [phone] Jeff Strickland MD Primary Care Provider [phone] Encounter Details Date Type Department Care Team (Late st Contact Info) Description 02/07/2023 Lab Requisition [facility] MAIN LAB [address] [place] [phone] Alan Davenport MD [facility] [place] [address] Social History Tobacco Use Types Packs/Day Years [...] Info) Description 08/04/2024 11:30 AM CDT Appointment [facility] MRI [address] [place] [address] Thomas Mendoza MD [address] [facility] 2L [place] [phone] 08/04/2024 1:30 PM CDT Office Visit [facility] - Urology [address] [place] [address] Thomas Mendoza MD [address] [facility] 2L DIV [place] [address] documented as of this encounter Procedures Procedure Name Priority Date/Time Associated Diagnosis Comments HOLD HLA SPECIMEN Routine 2023 7:5 8 AM AUDIO VISUAL DESIGN ENGINEER documented in this encounter Results * HOLD HLA SPECIMEN (2023 7:58 AM AUDIO VISUAL DESIGN ENGINEER) Hold HLA Specimen 02/07/2023 9:01 AM AUDIO VISUAL DESIGN ENGINEER [facility] ([facility]) Comment:The Hold HLA specime n has been received into the lab and will be held for 5 years at 4 degrees. Blood BLOOD SPECIMEN / Unknown 2023 7:58 AM AUDIO VISUAL DESIGN ENGINEER 02/07/2023 7:59 AM AUDIO VISUAL DESIGN ENGINEER Alan Davenport MD LAB - BLOOD BANK ORD ERABLES [facility] ([employer]) [address] documented in this encounter Visit Diagnoses Not on filedocumented in this encounter Care Teams Lastex Thread Winder Relationship Specialty Start Date End Date Jeff Strickland MD [address] [place] [address] PCP - General 03/05/18 [place] [address] [facility] [address] [place] [address] Orthopedic Surgery 03/28/17 documented as of this encounter
--- OUTSIDE RECORDS SUMMARY | 2024-03-28 14:32 | XMS_ITS | Referral Summary ---
Author Organization [facility] Address [address] [place] [address] Care Team Providers Care Sheet Finisher Name Role Phone Deandre Bojorquez MD Unavailable Jeff Strickland MD Primary Care Provider [phone] Source Comments [facility],non-owned Affiliates and Associated Physician Practices is amultiple site organization consisting of ambulatory clinics and hospital sitesin [place], [place], [place] and [place]. This disclosure is being madepursuant to the Care Everywhere program and may not contain all information available regarding this patient. Last updated 17.[facility] Encounters Date Type Department Care Team Description 03/12/2024 Lab Requisition [facility] [address] [place] [address] Alan Davenport MD 03/03/2024 Travel 03/03/2024 1:20 PM MONORAIL CAR OPERATOR Office Visit [facility] - Cardiology [address] [facility], [facility] [address] [place] [address] Maylin Cutler DO Chronic diastolic heart failure (HCC) (Primary Dx); Resistant hypertension; End-stage renal disease on peritoneal dialysis (HCC); Atherosclerosis of [place] coronary artery of [place] heart without angina pectoris; Hypertriglyceridemia ; Type 2 diabetes mellitus with other specified complication, unspecified whether fpc insulin use (HCC) 02/04/2024 Lab Requisition [facility] [address] [place] [address] Alan Davenport MD 01/08/2024 Refill [facility] - Cardiology [address] [facility], [place] [address] [place] [phone] Lorna Roca, IN STORE REPRESENTATIVE REFILL from Last 3 Months Allergies Active [...] 20 MG tabletIndications: Coronary artery disease involving [place] coronary artery of [place] heart without angina pectoris Take 1 (one) [...] (Aspirin 81) 81 MG tabletIndications: CAD in [place] artery Take 1 (one) tablet by mouth once daily 90 tablet 3 4 Active cloNIDine (Catapres) 0.1 MG/24HR patch Apply 1 (one) patch to skin every 7 days Active dilTIAZem ER 12hr 120 MG capsule Take 1 (one) capsule by mouth 2 times daily 60 capsule 11 4 Active fenofibrate (Tricor) 145 MG tabletIndications: Coronary artery disease involving [place] coronary artery of [place] heart without angina pectoris Take 1 (one) tablet by mouth once daily 90 tablet 4 4 Active atorvastatin (Lipitor) 80 MG tabletIndications: Coronary artery disease involving [place] coronary artery of [place] heart without angina pectoris Take 1 (one) tablet by mouth once daily 90 tablet 3 4 Active hydrALAZINE (Apresoline) 10 MG tablet Take 2 (two) tablets by mouth 3 times daily 180 tablet 3 4 Active B Mzzozeq-F-Pxrpy Acid (Dialyvite 800) 0.8 MG 1 tablet Orally Once a day for 30 day(s) Active minoxidil (LONITEN) 2.5 MG tablet Take 1 (one) tablet by mouth 2 times daily 0 03/03/19 25 Discontinu ed(List Clean-Up) Continuous Blood Gluc Vice Provost (FREESTYLE VIKRAM READER) KERON Use 1 Each [...] Type 2 diabetes mellitus 12/04/2020 CAD in port [place] artery 08/04/2020 Pre-transplant evaluation for kidney transplant 11/10/2019 Overview (09/03/2023): Images from the original note were not included. Grace Interiano 1955 Referring Yoga Coordinator: Alan Mccall Dialysis Info: Type: PD--> HD-->PD Time: 01/17/2020 Blood Type: O NEG Body mass index is 37.54 kg/m . ALERTS : Dr. Mendoza following enhancing lesion noted to upper pole of the left kidney. IR biopsy confirming oncocytoma in 07/2020. Preparatory Technician: Nadia Stock MD ESRD r/t DM2 and HTN Past Medical History: Diagnosis Date Arthropathy Dr Strickland manages. CHF (congestive heart failure) ([facility]) 2 yrs ago Sketch Artist is Dr. Becerra in [place]. CKD (chronic kidney disease), stage V (CMS/HCC) Community acquired pneumonia 2018 [facility] hospitalized. Diabetes mellitus (CMS/HCC) 20 years. [facility]. Preparatory Technician Dr. Davis at [place]. 03/26/21 last seen. Esophageal reflux takes med ESRD (end stage renal disease) (CMS/HCC) on PD as of 11/10/20 ESRD on peritoneal dialysis (CMS/HCC) Hypercholesteremia 5-10 yrs meds Hypertension 40's takes meds. Hypothyroidism meds 20 years Kidney stones 5-6 years ago had 2 in the same year. No urologist. Malignancy (CMS/HCC) right kidney 2012 Obstructive sleep apnea [address] Sergey Guevara [facility] remember doctors name SHABNAM on CPAP Renal cell carcinoma (CMS/HCC) [address] [place] Pruett surgeon. followed up every 6 [...] Other Consults: Raisa DP, Nikunj Walsh, Nba Gruber, Abner ES, Maren D, Mark D, Adrianna E, Triny J, Lisa J, Art M, Mundo D, Tyler PK, Kimberly J, Radhai S, Art D, Chanelle R, Walker J, Ace F, Habermann T, Gercelina M, Svitlana P, Christian DS, Bari C, Al- Gabi T, Rubens S, Tamika FARZANEH, Eladio GJ, Lucy C, Lisa G, Thania R, Elissa , Prashanth C, Brice N, Yesi DP, Wattammie KD. Pretransplant solid organ malignancy and organ transplant candidacy: A consensus expert opinion statement. Am J Transplant. 2020;21(2):460-474. doi: 10.1111/ajt.42123. Epub 2019Dec 09. PMID: [id number]. Urology: 08/06/2023 Attestation signed by Thomas Mendoza [...] CK7 and BerEP4. If this biopsy is sales representative health insurance of the entire lesion, it would be [...] it's helpful. ----- Message ----- From: Krystal AbelPORSHA Sent: 03/28/2022 2:07 PM MONORAIL CAR OPERATOR To: Martinez Sandhu MD, * Papito. I [...] Nov. Thank you Krystal Abel RN [facility], [facility] Life Enrichment Manager [phone] endoscopic resection of a sellar mass: 11/22/2021 [...] a formal visual hay exam with his cash office worker. We reviewed the surgical pathology report. He may restart his baby aspirin. At this time, I recommend a follow up MRI pituitary protocol in 3- 6 months with a visit with me after imaging and patient is agreeable. Strict return precautions were reviewed. RAIL CAR OPERATOR Cardiology: 08/28/2023 HPI: Mr. Interiano presents to [...] on Blood pressures Solange Guido MD, MD Excel Analyst [place] [facility] Cardiovascular Care 08/28/2023 Cardiology: 10/25/2021 Impression and Plan: 1. CAD post LAD PCI 2. ESRD 3. Atypical chest pain Plan lexiscan stress (no ) due to HTN and also resting echo (patient told he had abnormalities on echo though there is no record of this) Rest of plan per fellow note. Solange Guido MD, MD Excel Analyst [place] [facility] 10/25/2021 07/02/2021 Assessment/plan: Garce Interiano is a 66 year old male [...] attending Dr. Phan. Ted Ring MD PGY-5, Validation Scientist [facility] Cardiology Attending Attestation: Patient seen and examined with Fellow. Please see note for further details. I confirm history, exam, assessment and plan. In addition I note: Interval history: Patient presented to clinic with concerns about BP. Sometimes in 170's then after taking meds (2 hours) in 90's. Feels lightheaded and nauseous when BP low. Frequent BP med changes per manufacturing engineering technician. Encouraged patient to continue detailed BP [...] back and forth- typically this is the manufacturing engineering technician in the case of ESRD. DO [...] attending Dr. Guido. Ted Ring MD PGY-6, Validation Scientist [facility] Impression and Plan: 1. CAD post PCI of LAD 2. Hypertriglyceredimia Start Tricor Solange Guido MD, MD Excel Analyst [place] [facility] 07/18/2022 Pertinent Previous Committee Presentations: 12/19/2022 Committee Review Decision: Make Inactive Committee Discussion Details: Pt was presented at [facility] to make inactive on the kidney txp [...] mg/kg Committee Discussion Details: Pt brought to [facility] to discuss possible listing. -Reviewed PMH and [...] -Follow up imaging was previously discussed at [facility] on 03/28/2022 and again today. Radiology unable to rule out cancer on imaging. Team decision after [facility] 03/28/2022 was to have pt complete left [...] 03/28/2022: Committee Discussion Details: Pt brought to [facility] to review recent CT imaging concerning for [...] 09/27/2021: Committee Discussion Details: Pt brought to [facility] due to Pituitary tumor. -Reviewed pts PMH [...] 08/10/2020: Committee Discussion Details: Pt brought to [facility] to discuss recent PCI to mid LAD. [...] portion of the study, as per above. [facility]: 08/04/2020 HEMODYNAMIC FINDINGS: LVEDP 18 mmmHg [...] > Dictated by Lalit Muñoz DO (residential door unit installer). Renal US: 05/21/2023 FINDINGS: Right kidney: 10.0 [...] Impression: It is the impression of this clinical social work therapist that Grace Interiano has several positive factors [...] to be the back up caregiver. Plan: foundry worker to provide supportive services as needed. Patient remains a reasonable candidate for transplant from a psychosocial perspective. Psychiatric Consult Recommended: No Transplant Outdoor Adventure Guides: RAJ Portillo, REGISTERED NURSE POST PARTUM Abdominal Transplant Outdoor Adventure Guides [phone] Transplant Caregiver Confirmation Note Caregiver Confirmation Date Primary Name of Primary: Harriet Interiano Relationship: spouse - Confirmed during initial assessment 01/14/2022 - FURNITURE SALES ASSOCIATE form received on 01/14/2022 - Secondary Name of Secondary: Bo Interiano Relationship: son Tertiary Name of Tertiary: Jacbo Interiano Relationship: son - Confirmed via telephone [...] 15 lbs by the Transplant Team per PORSHA Rice Coordinator. If pt loses to BMI of [...] Immunizations Name Administration Dates Next Due Marla [employer] primary monoval ent 12+ yr 0.3mL Purple [...] Comments Blood Pressure 134/74 03/03/2024 12:47 PM MONORAIL CAR OPERATOR Pulse 65 03/03/2024 12:47 PM MONORAIL CAR OPERATOR Temperature 36.2 C (97.2 F) 08/06/2023 1:56 PM CDT Respiratory Rate 18 01/14/2022 1:01 PM MONORAIL CAR OPERATOR Oxygen Saturation 96% 03/03/2024 12:47 PM MONORAIL CAR OPERATOR Inhaled Oxygen Concentration - - Weight 119.7 kg (264 lb) 03/03/2024 12:47 PM MONORAIL CAR OPERATOR Height 172.7 cm (5' 8 ) 03/03/2024 12:47 PM MONORAIL CAR OPERATOR Body Mass Index 40.14 03/03/2024 12:47 PM MONORAIL CAR OPERATOR Functional Status Functional Status Response Date of [...] Info) Description 08/04/2024 11:30 AM CDT Appointment [facility] [address] [place] [address] Thomas Mendoza MD [address] [place] [address] [address] [place] [phone] 08/04/2024 1:30 PM CDT Office Visit [facility] - Urology [address] [place] [phone] Thomas Mendoza MD [address] [place] [address] [address] [facility] [place] [address] Medical Devices Implanted Type Area Learning Specialist Device Identifier Shelf Expiration Date Model / Serial / Lot Sys Cor Stent Xience Srr 3mm 18mm Rap Ex Implanted:Qty: 1 on 08/04/2020 by Javier Lan MD at [facility] Stent Coronary [employer] 06/19/2022 [id number] Description:STENT Sys Cor Stent Xience Srr 3mm 8mm Rap Ex Implanted:Qty: 1 on 08/04/2020 by Javier Lan MD at [facility] Stent Coronary [employer] 09/03/2021 [id number] Description:stent Procedures Procedure Name Priority Date/Time Associated Diagnosis Comments HOLD HLA SPECIMEN Routine 03/05/2024 1:4 0 PM MONORAIL CAR OPERATOR HOLD HLA SPECIMEN Routine 01/27/2024 3:2 3 PM MONORAIL CAR OPERATOR HEPATITIS C ANTIBODY Routine 01/14/2022 9:54 AM MONORAIL CAR OPERATOR Pre-transplant evaluation for kidney transplant HEMOGLOBIN A1C Routine 01/14/2022 9:54 AM MONORAIL CAR OPERATOR Pre-transplant evaluation for kidney transplant from Last 3 Months or Most Recently Relevant to Health Maintenance Results * HOLD HLA SPECIMEN (03/05/2024 1:40 PM MONORAIL CAR OPERATOR) Only the most recent of2 resultswithin the time period is included. Hold HLA Specimen 03/12/2024 3:00 PM MONORAIL CAR OPERATOR [facility] ([facility]) Comment:The Hold HLA specime n has been received into the lab and will be held for 5 years at 4 degrees. Blood BLOOD SPECIMEN / Unknown 03/05/2024 1:40 PM MONORAIL CAR OPERATOR 03/12/2024 1:40 PM MONORAIL CAR OPERATOR Alan Davenport MD LAB - BLOOD BANK ORD ERABLES [facility]) [address] [place] [address] * (ABNORMAL) HEMOGLOBIN A1C (01/14/2022 9:54 AM MONORAIL CAR OPERATOR) Hemoglobin A1c 8.7(H) <=5.6 % 01/14/2022 1:10 PM MONORAIL CAR OPERATOR [facility] Estimated Average Glucose 203 mg/dL 01/14/2022 1:10 PM MONORAIL CAR OPERATOR [facility] Comment: HbA1c Interpretation: Normal : < 5.7% Pre-diabetes: 5.7-6.4% Diabetes: Equal to or greater than 6.5% Test results diagnostic of diabetes should be repeated for confirmation. Treatment target values recommended by ADA and other clinical organizations should be used to evaluate metabolic control in patients. Reference: [place] Diabetes Association, Standards of Care in Diabetes -2020 In patients 70 years and older consider HbA1c target range of 7.0-7.5% (Reference: [employer] Sain[employer] et al. GREGORYDA. 2012) The Sebia assay for the measurement of HbA1c is a National Glycohemoglobin Standardization Program (NGSP) certified method. Blood BLOOD SPECIMEN / Unknown Lab Venipuncture / Unknown 01/14/2022 9:54 AM MONORAIL CAR OPERATOR 01/14/2022 11:00 AM MONORAIL CAR OPERATOR Marbin Flores MD LAB - CHEMISTRY PK ZENG Performing Organization Address City/[facility]/ZIP Co de Phone Number [address] [address], [facility] [phone] * HEPATITIS C ANTIBODY (01/14/2022 9:54 AM MONORAIL CAR OPERATOR) Hepatitis C Antibody Non-react sylvie Non-reac tive 01/14/2022 11:52 AM MONORAIL CAR OPERATOR [facility] Comment:Hepatitis C Antibody [...] Lab Venipuncture / Unknown 01/14/2022 9:54 AM MONORAIL CAR OPERATOR 01/14/2022 10:48 AM MONORAIL CAR OPERATOR Marbin Flores MD LAB - CHEMISTRY PK ZENG Performing Organization Address City/[facility]/ZIP Co de Phone Number [address] [address], [facility] [phone] from Last 3 Months or Most Recently Relevant to Health Maintenance Administered Medications Advance Directives * Full Code (Latest Code Status on File) Date Activated Date Inactivated Comments 08/04/2020 11:48 AM 08/08/2020 9:40 AM Care Teams Sheet Finisher Relationship Specialty Start Date End Date Jeff Strickland MD [address] [place] [address] PCP - General 03/05/18 [place] [address] [place] [address] Orthopedic Surgery 03/28/17
--- OUTSIDE RECORDS SUMMARY | 2024-03-28 14:32 | XMS_ITS | Encounter Summary ---
Author Organization [facility] Address [facility] [facility] [place] [address] Care Team Providers Care Rn Progressive Care Unit Name Role Phone Deandre Bojorquez MD Unavailable [phone] Jeff Strickland MD Primary Care Provider [phone] Encounter Details Date Type Department Care Team (Late st Contact Info) Description 07/31/[address] [facility] [address] [place] [phone] Alan Davenport MD [facility] OF [place] [address] Social History Tobacco Use Types Packs/Day Years [...] Description 08/04/2024 11:[address] [facility] MRI [address] [place] [address] Thomas Mendoza MD [address] [facility] [address] [place] [phone] 08/04/2024 1:30 PM CDT Office Visit [facility] - Urology [address] [place] [address] Thomas Mendoza MD [address] [facility] [address] [place] [phone] documented as of this encounter Procedures Procedure Name Priority Date/Time Associated Diagnosis Comments HOLD HLA SPECIMEN Routine 07/23/2023 2:0 5 PM CDT documented in this encounter Results * HOLD HLA SPECIMEN (07/23/2023 2:05 PM CDT) Hold HLA Specimen 07/31/2023 3:32 PM CDT [facility] Comment:The Hold HLA specime n has been received into the lab and will be held for 5 years at 4 degrees. Blood BLOOD SPECIMEN / Unknown 07/23/2023 2:05 PM CDT 07/31/2023 2:06 PM CDT Alan Davenport MD LAB - BLOOD BANK ORD ERABLES [facility] ([facility]) [address] [place], [place] [address] [place] [address] documented in this encounter Visit Diagnoses Not on filedocumented in this encounter Care Teams Rn Progressive Care Unit Relationship Specialty Start Date End Date Jeff Strickland MD [address] [place] [address] PCP - General 03/05/18 [place] [address] [address] Orthopedic Surgery 03/28/17 documented as of this encounter
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
--- OUTSIDE RECORDS SUMMARY | 2024-03-28 14:32 | XMS_ITS | CONTINUITY OF CARE DOCUMENT ---
Author Name sally zavala Address Unknown Organization [facility] Address [address] [place] [address] Phone [phone] Care Team Providers Care Butt Welder Name Role Phone Jason Becerra MD Unavailable DONNIE WOOD MD Unavailable [phone] DONNIE WOOD MD Unavailable [phone] PROBLEMS Condition Status Date Provider Notes Cardiology [...] In-person encounter Office Visit Jason Becerra MD [facility] - In-person encounter Office Visit Jason Becerra MD [facility] Fatigue - In-person encounter Office Visit Jason Becerra MD [facility] Chest pain-type to be determined - In-person encounter Office Visit Jason Becerra MD [facility] Office - In-person encounter Office Visit Jason Becerra MD [facility] Cardiology examinationDiabetes, Type 2HyperlipidemiaHypertens ionDiastolic heart [...] blood pressure, cuff size regular Cy ralph iSm blood pressure, diastolic 70 mm[Hg] Cy ralph [...] LinkLogic 3.5-5.2 sodium, serum 141 mmol/L LinkLogic [id number] 2288/09/26 urea nitrogen/creatini ne ratio, serum 19 LinkLogic [...] Statu s: Monica oropeza: 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 Jason Becerra MD social history reviewed E&M revi ewed - no changes required Jason Becerra MD smoking status Never smoker Amy doan FAMILY HISTORY Family Member Condition First Degree Blood Relative No Known Fam steven History INSURANCE PROVIDERS Payer name Policy type / Coverage type Notrees red democrat ID [employer] CHOICE POS II Commercial insurance company [id number] ADVANCE DIRECTIVES Name Date POWER OF SUGAR TRUCKER TREATMENT PLAN Date Name Performer Cardiology follow [...] BASIC METABOLIC PANE L W/EGFR DLCO - 08580 FRC - 15338 FVC - 98866 HISTORY OF PROCEDURES Procedure Date Procedure Name Provider Procedure Notes S tatus EKG Jason Becerra MD complete d Regadenoson, 4 units Jason Becerra MD completed Cardiolite, 2 units Jason Becerra MD completed SPECT Images Jason Becerra MD comple wendy Stress EKG Jason Becerra MD complete d FVC / MVV - [id number] Jason Becerra MD c ompleted BLOOD COUNT HEMOGLOBIN Jason Becerra MD completed FRC - 89188 Jason Becerra MD complet ed SpO2 w/o 6min walk/titration Jason Becerra MD completed DLCO - 74447 Jason nguyen DEMETRIS Becerra MD complete d
--- OUTSIDE RECORDS SUMMARY | 2024-03-28 14:32 | XMS_ITS | Encounter Summary ---
Author Organization [facility] Address [facility] [place] [address] Care Team Providers Care Programmer Analyst Health It Name Role Phone Deandre Bojorquez MD Unavailable [phone] Jeff Strickland MD Primary Care Provider [phone] Encounter Details Date Type Department Care Team (Late st Contact Info) Description 11/21/2023 Lab Requisition [facility] [address] [place] [id number] Alan Davenport MD [facility][note 3][address] [facility] OF [place] [address] Social History Tobacco Use Types Packs/Day Years [...] Description 08/04/2024 11:30 AM CDT Appointment [facility] MRI [address] [place] [address] Thomas Mendoza MD [address] [facility] [address]L [place] [address] 08/04/2024 1:30 PM CDT Office Visit [facility] Urology [address] [place] [address] Thomas Mendoza MD [address] [facility] [address] [place] [address] documented as of this encounter Procedures Procedure Name Priority Date/Time Associated Diagnosis Comments HOLD HLA SPECIMEN Routine 11/18/2023 12: 16 PM CDT documented in this encounter Results * HOLD HLA SPECIMEN (11/18/2023 12:16 PM CDT) Hold HLA Specimen 11/21/2023 1:31 PM CDT [facility] Comment:The Hold HLA specime n has been received into the lab and will be held for 5 years at 4 degrees. Blood BLOOD SPECIMEN / Unknown 11/18/2023 12:16 PM CDT 11/21/2023 12:17 PM CDT Alan Davenport MD LAB - BLOOD BANK ORD ERABLES [facility] ([facility] [address] [place] [address], [facility] documented in this encounter Visit Diagnoses Not on filedocumented in this encounter Care Teams Programmer Analyst Health It Relationship Specialty Start Date End Date Jeff Strickland MD [address] [place] [address] PCP - General 03/05/18 [place] [address] [address] Orthopedic Surgery 03/28/17 documented as of this encounter
--- OUTSIDE RECORDS SUMMARY | 2024-03-28 14:32 | XMS_ITS | Encounter Summary ---
Author Organization [facility] Address [facility] [place] [address] Care Team Providers Care Market Relationship Manager Name Role Phone Deandre Bojorquez MD Unavailable [phone] Jeff Strickland MD Primary Care Provider [phone] Encounter Details Date Type Department Care Team (Late st Contact Info) Description 04/10/2023 Lab Requisition [facility] MAIN LAB [address] [place] [id number] Alan Davenport MD [facility]1 [facility] [place] [address] Social History Tobacco Use Types Packs/Day Years [...] Info) Description 08/04/2024 11:30 AM CDT Appointment [facility] MRI [address] [place] [address] Thomas Mendoza MD [address] [facility] 2L DIV OF [place]OLOGIC [place] [address] 08/04/2024 1:30 PM CDT Office Visit [facility] - Urology [address] [place] [address] Thomas Mendoza MD [address] [facility] 2L DIV OF UROLOGIC [place] [address] documented as of this encounter Procedures Procedure Name Priority Date/Time Associated Diagnosis Comments HOLD HLA SPECIMEN Routine 04/02/2023 3:0 1 PM MANUFACTURING ENGINEERING PROFESSOR documented in this encounter Results * HOLD HLA SPECIMEN (04/02/2023 3:01 PM MANUFACTURING ENGINEERING PROFESSOR) Hold HLA Specimen 04/10/2023 4:01 PM MANUFACTURING ENGINEERING PROFESSOR [facility] ([facility]) Comment:The Hold HLA specime n has been received into the lab and will be held for 5 years at 4 degrees. Blood BLOOD SPECIMEN / Unknown 04/02/2023 3:01 PM MANUFACTURING ENGINEERING PROFESSOR 04/10/2023 3:01 PM MANUFACTURING ENGINEERING PROFESSOR Alan Davenport MD LAB - BLOOD BANK ORD ERABLES [facility] ([facility]) [address] documented in this encounter Visit Diagnoses Not on filedocumented in this encounter Care Teams Market Relationship Manager Relationship Specialty Start Date End Date Jeff Strickland MD [address] [place] [address] PCP - General 03/05/18 [place] [address] [facility] [address] [place] [address] Orthopedic Surgery 03/28/17 documented as of this encounter
--- OUTSIDE RECORDS SUMMARY | 2024-03-28 14:32 | XMS_ITS | Encounter Summary ---
Author Organization [facility] Address [facility]3 [facility] [place] [address] Care Team Providers Care Fur Coat Sewer Name Role Phone Deandre Bojorquez MD Unavailable [phone] Jeff Strickland MD Primary Care Provider [phone] Encounter Details Date Type Department Care Team (Late st Contact Info) Description 10/28/2023 Lab Requisition [facility] MAIN LAB [address] [place] [phone] Alan Davenport MD [facility]1 [facility] [place] [address] Social History Tobacco Use Types Packs/Day Years [...] Description 08/04/2024 11:30 AM CDT Appointment [facility] MRI [address] [place] [address] Thomas Mendoza MD [address] [facility] 2L [place] [address] 08/04/2024 1:30 PM CDT Office Visit [facility] Physician [facility] - Urology [address] [place] [address] Thomas Mendoza MD [address] [facility] 2L [place] [address] documented as of this encounter Procedures Procedure Name Priority Date/Time Associated Diagnosis Comments HOLD HLA SPECIMEN Routine 10/22/2023 3:5 0 PM CDT documented in this encounter Results * HOLD HLA SPECIMEN (10/22/2023 3:50 PM CDT) Hold HLA Specimen 10/28/2023 5:00 PM CDT [facility] Comment:The Hold HLA specime n has been received into the lab and will be held for 5 years at 4 degrees. Blood BLOOD SPECIMEN / Unknown 10/22/2023 3:50 PM CDT 10/28/2023 3:50 PM CDT Alan Davenport MD LAB - BLOOD BANK ORD ERABLES [facility] ([facility]) [address] [place], [place] [id number] [place] [address] documented in this encounter Visit Diagnoses Not on filedocumented in this encounter Care Teams Fur Coat Sewer Relationship Specialty Start Date End Date Jeff Strickland MD [address] [place] [address] PCP - General 03/05/18 [place] [address] [address] Orthopedic Surgery 03/28/17 documented as of this encounter
--- OUTSIDE RECORDS SUMMARY | 2024-03-28 14:32 | XMS_ITS | Continuity of Care Document ---
Author Organization formerly [facility] Address [address] [place] [address] Phone Care Team Providers Care Store Clerk Cashier Name Role Phone Kee Rodriguez Unavailable Unavailable Procedures Procedure Date Office/outpatient Visit, Est Eye Exam Established Pt Advance Directives Directive Yes / No Effective Date File Name No Information Encounters Encounter Description Practice Location Reason(s) For Visit Diagnoses Date Provider Providers Copied on Encounter Office/outpat ient Visit, Est [facility], [address] [place] [address] [address], [place], [place], [id number], tel:[phone] [facility] No Information Mar-0 2-201 0 Krishnasamy Kee. [address] [facility] [place] [address], [place], [place], [facility], [place]. tel:[phone] [facility], [address] [place] [address] [address], [place], [place], [address], tel:[phone] [facility] No Information Nhan-3 0-200 7 David OD Freddy. [address], [place], [place], [facility], [place]. tel:[phone] Family History Family Member Type Diagnosis Age [...]
--- OUTSIDE RECORDS SUMMARY | 2024-03-28 14:32 | XMS_ITS ---
Author Organization [facility] Address [address] [place] [address] Care Team Providers Care Federal Mediator Name Role Phone Deandre Bojorquez MD Unavailable [phone] Jeff Strickland MD Primary Care Provider [phone] Transplant Episode Kidney Candidate [facility] ([place], [place]) - [facility] Center waitlisted on 05/06/2022 Marked as Inactive on 12/19/2022 Reason: Temporarily too Sick Kidney CoordinatorSavanna Edwards RN Phone: N/A Fax: N/A Email: N/A Scores Score Value Updated Exceptions/Reas ons CPRA Not available EPTS (Calc) 95 03/28/2024 [place] Organ Diagnosis Organ Primary Contributory Kidney Diabetes Mellitus - Type II Hype rtensive Nephrosclerosis Care Team Name Role Phone Fax Email Savanna Edwards RN Kidney Coordinator N/A N/A N/A Alan Mccall MD Referring Physician N/A N/A N/A Anjali Mott LMSW Applications Support Engineer N/A N/A N/A Millie Lindquist Industrial Relations Worker N/A N/A N/A Events Pre-Transplant Referred: 12/05/2021 Evaluation began: 12/13/2021 Committee: 05/02/2022 UNOS qualified: 01/17/2020 Center waitlisted: 05/06/2022 Dialysis History Dialysis History Start End Type Comments Center 01/17/2020 Peritoneal [facility] Information Center Phone Fax Address [facility] [phone] [address] [place] [phone]
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
--- OUTSIDE RECORDS SUMMARY | 2024-03-28 14:32 | XMS_ITS ---
Author Organization [facility] Address [address] [place] [id number] Care Team Providers Care Cook 3 Pastry Name Role Phone Jeff Strickland MD Primary Care Provider Chan Nicholas MD Unavailable [phone] Alan Mccall MD Unavailable [phone] Pepito Haro MD PhD Unavailable [phone] Solange Guido MD Unavailable Dialysis Access Sites [...] - BOTH EYES Routine 03/09/2024 2:00 PM SUBSTITUTE BUS DRIVER Cystoid macular edema of both eyes POCT [...] day with meals 06/27/19 21 Active vit C,M-Hq-qijlg-lutein- zeaxan 250-90-40-1 mg capsule Take 1 capsule [...] nostril as directed 30 mL 6 03/04/19 Active Additional Information Patient not taking.Reported on [...] day as needed (nasal irrigation) Active FA-vit Eaasd-T-sdup-vitamin D3 (Dialyvite 800-Ultra D) 0.8-2,000 mg-unit tablet [...] 4 times daily. 200 each 5 04/18/19 Active Additional Information Patient not taking.Reported [...] warrant further PDT. - Patient returned to [facility] for ongoing care and follow up Assessment & Plan (03/09/2024 6:25 PM SUBSTITUTE BUS DRIVER): Vision OD trends mild improvement, though still [...] genetic results would not private branch exchange installer. Given we have exhausted available treatment without [...] 2 weeks and have patient return to [facility] retina in 4 weeks for repeat [...] 03/26/2021 Assessment & Plan (03/26/2021 1:17 PM SUBSTITUTE BUS DRIVER): Enlarged mild sella turcica on a routine [...] units Assessment & Plan (03/26/2021 1:17 PM SUBSTITUTE BUS DRIVER): Chronic, uncontrolled, improving A1c today 7.7 % [...] WNL Assessment & Plan (03/26/2021 1:16 PM SUBSTITUTE BUS DRIVER): Pt currently on Levothyroxine 112 mcg oral [...] 11/18/2018 Assessment & Plan (01/21/2019 2:02 PM SUBSTITUTE BUS DRIVER): Symptomatic. Will request for esophageal manometry. Continue [...] 06/09/2018 Chronic diastolic CHF (congestive heart failure) ([facility]) 05/18/2018 SHABNAM on CPAP 05/18/2018 Obesity (BMI 30-39.9) 05/18/2018 Stage 5 chronic kidney disease ([facility]) 019 Hyperlipidemia associated with type 2 diabetes eboni gonzalez 12/03/2017 Assessment & Plan (10/30/2021 8:35 PM CDT): On statin therapy Tolerating well Assessment & Plan (03/26/2021 1:16 PM SUBSTITUTE BUS DRIVER): On statin therapy Tolerating well Last lipid [...] nephrectomy. 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 [id number] Immunizations Name Administration Dates Next Due Hep [...] = 0.6 oz pur e alcohol) rarely [employer] Answer Date Recorded In the past 12 months has [employer], gas, oil, or water [employer] threatened to shut off services in your [...] often do you attend chur ch or yazidi services? Never 03/25/2023 Do you belong to any clubs o r organizations such as anabaptist groups, unions, fraternal or athletic groups, or [...] place to sleep or slept in a longterm (including now)? 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 Sex Male 2:23 AM SUBSTITUTE BUS DRIVER Gender Identity Not on file Sexual Orientation [...] 40.58 11/17/2023 11:02 AM CDT Results * OCT, Retina - OU - Both Eyes (03/09/2024 2:00 PM SUBSTITUTE BUS DRIVER) Central Macular Thickness OS 227 micrometers CONTINUUM Central Macular Thickness OD 479 micrometers CONTINUUM Anatomical Region Laterality Modality Head Optical Coherenc e Tomography Narrative 03/16/2024 12:53 PM SUBSTITUTE BUS DRIVER Right Eye Quality was good. Scan locations included subfoveal. Progression has improved. Macular thickness was 479 micrometers. Left Eye Quality was good. Scan locations included subfoveal. Progression has been stable. Macular thickness was 227 micrometers. Notes OD - ERM, CME continues to improve OS - flat Sera Villanueva MD OPHTH TOMOGRAPHY Fi nal [...] was last reviewed 2020. Testing performed by: [facility], [address] [place] [address]., [id number] Blood 08/11/2023 7:50 PM CDT 08/11/2023 8:05 PM CDT us Leni Cervantes MD LAB BLOOD ORDERABLES Kenna l Result [facility] [address] [facility] Department [place] [address] * (ABNORMAL) Lipid panel (11/30/2022 [...] revised on 2017. Triglycerides 439(H) <=149 mg/dL [facility] Comment: Interpretive Data Ages < [...] revised on 2017. HDL 26(L) >=40 mg/dL [facility] Comment: Interpretive Data Ages < [...] on 2017. LDL, calculated See Comment <=129 [facility] Comment: Unable to calculate LDL due [...] MD LAB BLOOD ORDERABLES Final Result KERRI SIMPSON [facility] Department [place] [address] from Last 3 Months or Most Recently Relevant to Health Maintenance
--- OUTSIDE RECORDS SUMMARY | 2024-03-28 14:32 | XMS_ITS ---
Author Organization [facility] Address [facility] [place] [address] Care Team Providers Care Reel Cart Operator Name Role Phone Jeff Strickland MD Primary Care Provider Chan Nicholas MD Unavailable [phone] Alan Mccall MD Unavailable [phone] Pepito Haro MD PhD Unavailable Solange Guido MD Unavailable Active Problems Problem Noted Date Diagnosed Date [...] warrant further PDT. - Patient returned to [facility] for ongoing care and follow up Assessment & Plan (03/09/2024 6:25 PM SEWER DIGGER): Vision OD trends mild improvement, though still [...] We discussed that genetic results would not policy change clerk. Given we have exhausted available treatment without [facility] improvement, and CME is improving spontaneously, patient can follow in [facility]. Assessment & Plan (10/08/2023 2:51 PM [...] 2 weeks and have patient return to [facility] retina in 4 weeks for repeat [...] End-stage renal disease on peritoneal dialysis ( [facility]) 04/24/2023 Hypertensive renal failure 04/24/2023 Secondary hyperparathyroidism [...] 03/26/2021 Assessment & Plan (03/26/2021 1:17 PM SEWER DIGGER): Enlarged mild sella turcica on a routine [...] units Assessment & Plan (03/26/2021 1:17 PM SEWER DIGGER): Chronic, uncontrolled, improving A1c today 7.7 % [...] WNL Assessment & Plan (03/26/2021 1:16 PM SEWER DIGGER): Pt currently on Levothyroxine 112 mcg oral [...] 11/18/2018 Assessment & Plan (01/21/2019 2:02 PM SEWER DIGGER): Symptomatic. Will request for esophageal manometry. Continue [...] 06/09/2018 Chronic diastolic CHF (congestive heart failure) ([facility]) 05/18/2018 SHABNAM on CPAP 05/18/2018 Obesity (BMI 30-39.9) 05/18/2018 Stage 5 chronic kidney disease (CMS/HCC) 019 Hyperlipidemia associated with type 2 diabetes eboni gonzalez 12/03/2017 Assessment & Plan (10/30/2021 8:35 PM CDT): On statin therapy Tolerating well Assessment & Plan (03/26/2021 1:16 PM SEWER DIGGER): On statin therapy Tolerating well Last lipid [...] nephrectomy. 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 [id number] Current Oncology Plans No current plan information found. Past Plans No past plan information found. Radiation Treatments * No radiation treatments are documented for this patient in [facility]. Treatments may have been administered in another [...] were not included. Kendall Carl 1955 Referring Business Support Professional: Alan Mccall Dialysis Info: NOD GFR 13 Type: Time: (Not currently on dialysis) days Blood Type: O NEG Body mass index is 37.36 kg/m . ALERTS Account Manager: needs to establish Past Medical History: Diagnosis Date Arthropathy RA. Dr Strickland manages. CHF (congestive heart failure) 2 yrs ago Asian Studies Program Chair is Dr. Becerra in [place]. CKD (chronic kidney disease), stage V Community acquired pneumonia 2018 [facility] hospitalized. Diabetes mellitus 20 years. Lantus pen. Esophageal reflux takes med Hypercholesteremia 5-10 yrs meds Hypertension takes meds Hypothyroidism meds 20 years Kidney stones 5-6 years ago had 2 in the same year. Malignancy right kidney 2012 Obstructive sleep apnea 3 years. [facility]. Cannont remember doctors name Renal cell carcinoma 2012 [...] file Gets together: Not on file Attends scientology service: Not on file Active member of [...] Impression: It is the impression of this perinatal social worker that Kendall Carl has several positive factors for Kidney transplant candidacy from a psychosocial perspective. Patient appears to have appropriate knowledge of illness. Patient has sufficient insurance coverage and stable financial situation for post transplant needs. No concerns regarding substance abuse, legal issues, or mental health needs. Patient has adequate support system and appropriate discharge plan. Plan: forge utility worker to provide supportive services as needed. Patient appears to be a reasonable candidate for transplant from a psychosocial perspective. -Post transplant arrangement forms are needed prior to being listed. -Updated toxicology results needed, per protocol Psychiatric Consult Recommended: No Transplant Sugar Refinery Supervisor: Joy Tam LCSW RD: 11/09/2019 BMI= 36.2, [...] use my fitness pal or my food coach operator) - Consume no more than 2000 calories a day E-mailed pt's a 2000 calorie, CKD meal plan. Items Still Pending: Clinic, colonoscopy Acute pain of left shoulder 01/25/2019 03/25/2023 Non-cardiac chest pain 11/18/201803/25 Assessment & Plan (01/21/2019 2:02 PM SEWER DIGGER): The pain is persistent. The patient described [...] has had extensive cardiac workup by the autocad electrical designer including coronary angiogram. He has chest pain [...] due to type 2 di abetes mellitus (CMS/HCC) 05/18/2018 03/25/2023 CKD stage 4 secondary to hyp ertension ([facility]) 05/18/2018 03/25/2023 Poor diet 05/18/2018 03/25/2023 Dizziness 05/18/2018 03/25/2023 Type 2 diabetes mellitus wit hout complication ([facility]) 12/03/2017 03/25/2023 Kidney disease 08/06/2017 03/25/2023 Obstructive sleep apnea 10/22/201607/2023
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
--- OUTSIDE RECORDS SUMMARY | 2024-03-28 14:32 | XMS_ITS | Encounter Summary ---
Author Organization [facility] Address [facility] [place] [address] Care Team Providers Care Transition Lead Name Role Phone Deandre Bojorquez MD Unavailable [phone] Jeff Strickland MD Primary Care Provider [phone] Encounter Details Date Type Department Care Team (Late st Contact Info) Description 09/30/2023 Lab Requisition [facility] [address] [place] [phone] Alan Davenport MD [facility] OF [place] [address] Social History Tobacco Use Types Packs/Day Years [...] Info) Description 08/04/2024 11:30 AM CDT Appointment [facility] MRI [address] [place] [address] Thomas Mendoza MD [address] [facility] [address] [place] [phone] 08/04/2024 1:30 PM CDT Office Visit [facility] - Urology [address] [place] [address] Thomas Mendoza MD [address] [facility] [address] [place] [phone] documented as of this encounter Procedures Procedure Name Priority Date/Time Associated Diagnosis Comments HOLD HLA SPECIMEN Routine 09/24/2023 3:2 7 PM CDT documented in this encounter Results * HOLD HLA SPECIMEN (09/24/2023 3:27 PM CDT) Hold HLA Specimen 09/30/2023 4:32 PM CDT [facility] Comment:The Hold HLA specime n has been received into the lab and will be held for 5 years at 4 degrees. Blood BLOOD SPECIMEN / Unknown 09/24/2023 3:27 PM CDT 09/30/2023 3:27 PM CDT Alan Davenport MD LAB - BLOOD BANK ORD ERABLES [facility] ([facility]) [address] [place], [place] [id number] [place] [address] documented in this encounter Visit Diagnoses Not on filedocumented in this encounter Care Teams Transition Lead Relationship Specialty Start Date End Date Jeff Strickland MD [address] [place] [address] PCP - General 03/05/18 [place] [address] [address] Orthopedic Surgery 03/28/17 documented as of this encounter
--- OUTSIDE RECORDS SUMMARY | 2024-03-28 14:32 | XMS_ITS | Patient Health Summary ---
Author Organization [facility] Address [address] [place] [address] Care Team Providers Care Security Solutions Engineer Name Role Phone Deandre Bojorquez MD Unavailable [phone] Jeff Strickland MD Primary Care Provider Note from [facility],non-owned Affiliates and Associated Physician Practices is amultiple site organization consisting of ambulatory clinics and hospital sitesin [place], [place], [place] and [place]. This disclosure is being madepursuant to the Care Everywhere program and may not contain all information available regarding this patient. Last updated 17.[facility] Allergies * Oxycodone(Psychiatric) -Medium Criticality Medications * [...] daily 3 refills by 01/07/2025 * B Wfvdahs-D-Ehndl Acid (Dialyvite 800) 0.8 MG 1 tablet Orally Once a day for 30 day(s) Ended Medications* minoxidil (LONITEN) 2.5 MG tablet(Started 07/19/2019) (Discontinued) Take 1 (one) tablet by mouth 2 times daily * Continuous Blood Gluc Stuffing Machine Operator (FREESTYLE VIKRAM READER) KERON(Started 12/01/2019)(Discontinued) [...] Type 2 diabetes mellitus 12/04/2020 CAD in [place] artery 08/04/2020 Pre-transplant evaluation for kidney transplant [...] Comments Blood Pressure 134/74 03/03/2024 12:47 PM BOOKER Pulse 65 03/03/2024 12:47 PM BOOKER Temperature 36.2 C (97.2 F) 08/06/2023 1:56 PM CDT Respiratory Rate 18 01/14/2022 1:01 PM BOOKER Oxygen Saturation 96% 03/03/2024 12:47 PM BOOKER Inhaled Oxygen Concentration - - Weight 119.7 kg (264 lb) 03/03/2024 12:47 PM BOOKER Height 172.7 cm (5' 8 ) 03/03/2024 12:47 PM BOOKER Body Mass Index 40.14 03/03/2024 12:47 PM BOOKER Medical Devices Implanted Type Area Managing Broker Device Identifier Shelf Expiration Date Model / Serial / Lot Sys Cor Stent Xience Srr 3mm 18mm Rap Ex Implanted:Qty: 1 on 08/04/2020 by Javier Lan MD at [facility] Stent Coronary [employer] 06/19/2022 [id number] Description:STENT Sys Cor Stent Xience Srr 3mm 8mm Rap Ex Implanted:Qty: 1 on 08/04/2020 by Javier Lan MD at [facility] Stent Coron[employer] 09/03/2021 [id number] Description:stent Procedures * HOLD HLA SPECIMEN(Performed 03/05/2024) [...] unspecified vessel or lesion type, unspecified whether [place] or transplanted heart (HCC), Congestive heart failure, unspecified HF chronicity, unspecified heart failure type (HCC), Type 2 diabetes mellitus with chronic kidney disease on chronic dialysis, without long-term current use of insulin (HCC), Hypertension, unspecified type * STRESS TEST(Performed 11/06/2022) Performed for Pre-kidney transplant, listed, Coronary artery disease with angina pectoris, unspecified vessel or lesion type, unspecified whether [place] or transplanted heart (HCC), Congestive heart failure, unspecified HF chronicity, unspecified heart failure type (HCC), Type 2 diabetes mellitus with chronic kidney disease on chronic dialysis, without long-term current use of insulin (HCC), Hypertension, unspecified type * ECHO COMPLETE(Performed 11/06/2022) Performed for Pre-kidney transplant, listed, Coronary artery disease with angina pectoris, unspecified vessel or lesion type, unspecified whether [place] or transplanted heart (HCC), Congestive heart failure, [...] 11/07/2021) Performed for Coronary artery disease involving nuiqs[place] coronary artery of nuiqs[place] heart without angina pectoris * IR CENTRAL [...] 08/04/2020) Performed for Coronary artery disease involving nuiqs[place] coronary artery of [place] heart with angina pectoris (HCC), Pre-transplant evaluation [...] 06/15/2020) Performed for Coronary artery disease involving nuiqs[place] coronary artery of nuiqs[place] heart without angina pectoris * LIPID PROFILE(Performed 06/15/2020) Performed for Coronary artery disease involving nuiqs[place] coronary artery of nuiqs[place] heart without angina pectoris * CT KIDNEYS [...] for Pre-transplant evaluation for kidney transplant * HCARLENE-GAONA VIRUS ANTIBODY TO VCA IGG(Performed 11/09/2019) Performed [...] * HOLD HLA SPECIMEN (03/05/2024 1:40 PM BOOKER) Only the most recent of9 resultswithin the time period is included. [facility] Hold HLA Specimen 03/12/2024 3:00 PM BOOKER [facility] ([facility]) Comment:The Hold HLA specime n has been received into the lab and will be held for 5 years at 4 degrees. Blood BLOOD SPECIMEN / Unknown 03/05/2024 1:40 PM BOOKER 03/12/2024 1:40 PM BOOKER Alan Davenport MD LAB - BLOOD BANK ORD ERABLES [facility] ([facility]) [address] [id number] * EKG 12-LEAD (10/14/2023 11:24 AM CDT) Pathologist [facility] Ventricular Rate 53 BPM [facility] Atrial Rate 53 BPM [facility] P-R Interval 170 ms [facility] QRS Duration ms 96 ms [facility] Q-T Interval ms 534 ms [facility] QTC Calculation (Bezet) 501 ms [facility] Calculated P [place] 20 degrees [facility] Calculated R [place] -50 degrees [facility] Calculated T [place] -32 degrees SL [facility] Interpretation EKG SINUS BRADYCARDIA INCOMPLETE RIGHT BUNDLE BRANCH BLOCK LEFT ANTERIOR FASCICULAR BLOCK SEPTAL INFARCT , AGE UNDETERMINED PROLONGED QT ABNORMAL ECG NO PREVIOUS ECGS AVAILABLE Confirmed by SHANELL CAICEDO MD ([id number]) on 10/16/2023 10:56:56 AM [facility] 10/14/2023 11:2 4 AM CDT 10/16/2023 10:56 AM CDT Letha Christine ESTIMATOR PROJECT MANAGER-SUGAR BOILER ECG ORDERABLES PATIENCE MUSE * MRI ABDOMEN WO CONTRAST (07/17/2023 [...] PM Narrative 07/17/2023 12:48 PM CDT PROCEDURE: MRI ABDOMEN WO CONTRAST DATE/TIME OF [...] - 1.20 mg/dL 07/17/2023 10:59 AM CDT [facility] eGFR 16(L) >=90 mL/min/1.7 3 m2 07/17/2023 10:59 AM CDT [facility] Blood BLOOD SPECIMEN / Unknown 07/17/2023 10:44 AM CDT 07/17/2023 10:59 AM CDT Martinez Sandhu MD LAB - POINT OF CARE ORDERABLES [facility] [address] [place] [address] * US RETROPERITONEAL COMPLETE (05/21/2023 12:05 PM [...] exclude solid component. Report dictated by Romel Hendricks, MD, (workforce development vice president). > Dictated by Romel Hendricks MD (Golf Cart Mechanic) 05/21/2023 11:22 AM ILizandro MD have personally reviewed and interpreted this examination/study. > Interpreting Provider: Lizandro Diaz MD on 05/21/2023 12:34 PM Narrative 05/21/2023 12:34 PM CDT PROCEDURE: US RETROPERITONEAL COMPLETE, DATE/TIME OF EXAM: 05/21/2023 12:05 PM, LOCATION [facility] INDICATION: Z76.82: Pre-kidney transplant, listed [...] PROCEDURE: US RETROPERITONEAL COMPLETE, DATE/TIME OF EXAM: 4/3/255001:05 PM, LOCATION [facility] INDICATION: Z76.82: Pre-kidney transplant, listed [...] component. Report dictated by Romel Hendricks MD, (workforce development vice president). > Dictated by Romel Hendricks MD (Golf Cart Mechanic) 05/21/2023 11:22 AM I, Lizandro Diaz MD [...] CDT Impressions 05/21/2023 11:02 AM CDT IMPRESSION: 1. Interval change in right thyroid [...] AM Narrative 05/21/2023 11:02 AM CDT EXAMINATION: THYROID SONOGRAM HISTORY: Multiple thyroid nodules. [...] above. > Dictated by Neeraj Johnson MD (Golf Cart Mechanic) 11/06/2022 12:04 PM I, Ariel Araya MD have personally reviewed and interpreted this examination/study. > Interpreting Provider: Ariel Araya MD on 11/06/2022 4:28 PM Narrative 11/06/2022 4:28 PM CDT PROCEDURE: NM MYOCARD PERF REST STRESS DATE/TIME OF EXAM: 11/06/2022 12:41 PM CLINICAL INFORMATION: None relevant/not provided if blank. Indication: Z76.82: Pre-kidney transplant, listed I25.119: Coronary artery disease with angina pectoris, unspecified vessel or lesion type, unspecified whether [place] or transplanted heart ([facility]) I50.9: Congestive heart failure, unspecified HF chronicity, unspecified heart failure type ([facility]) E11.22: Type 2 diabetes mellitus with chronic [...] pectoris, unspecifiedvessel or lesion type, unspecified whether [place] or transplanted heart([facility]/HCC) I50.9: Congestive heart failure, unspecified HF chronicity, unspecified heart failure type ([facility]) E11.22: Type 2 diabetes mellitus with chronic [...] above. > Dictated by Neeraj Johnson MD (Golf Cart Mechanic) 11/06/2022 12:04PM I, Ariel Araya MD have personally reviewed and interpreted this examination/study. > Interpreting Provider: Ariel Araya MD on 11/06/2022 4:[address] MD NM ORDERABLES * STRESS TEST (11/06/2022 11:27 AM CDT) BSA 2.34 m2 [facility] Predicted METS 7.4 METS [facility] Target HR 131 bpm [facility] Max Age Predicted HR 154 bpm [facility] Baseline HR 56 bpm [facility] Stress peak HR 71 bpm [facility] Max HR Percent 46 % [facility] Baseline BP 153/70 mmHg [facility] Post peak BP 153/70 mmHg [facility] Target HR Percent 54 % [facility] Anatomical Region Laterality Modality Cardiac Electrop hysiology Narrative 11/06/2022 3:12 PM CDT ECG: The ECG was negative for ischemia. Please see nuclear imaging under separate report 1110- Pt to Nuc Med procedure room for Lexiscan stress test. Assessment completed. 1113- VSS 1116- Informed consent obtained by Dr. Johnson. Physician remained at bedside during stress portion of test. 1118- Lexiscan/Myoview administered per NM tech, pt c/o dyspnea, VSS 01412- Test complete, VSS, symptoms resolved. IV dc'd. [...] * ECHO COMPLETE (11/06/2022 9:51 AM CDT) [facility] Signature BSA 2.9159656 m2 SSM CV FUJ I PACS LV [...] SSM CV FUJI PACS MV E' lateral dnotrell 5.515 cm/s SS M CV FUJI PACS [...] FUJI PACS RVIDd 4.0 cm SSM CV [facility] I PACS RVOT diam Doppler 3.012 cm SS M CV FUJI PACS RVOT area Doppler 7.13 cm2 SS [facility] stroke vol 98.13 cm3 [facility] VTI 13.78 cm [facility] CV [facility] I PACS TV S' dontrell 234.54 SSM CV [facility] I PACS TAPSE 2.378 1.7 cm S[facility] CV [facility] I PACS RVOT pk dontrell 0.69 m/s SSM CV F UJI PACS RA area 19.688 cm2 SSM CV [facility] I PACS AV mn grad 4 mmHg SSM CV FU JI PACS AV pk grad 7 mmHg SSM CV FU JI PACS AV mn dontrell 0.87 m/s SSM CV [facility] I PACS AV pk dontrell 1.28 m/s SSM CV [facility] I PACS AV VTI 28.508 cm SSM CV [facility] I PACS LVOT pk grad 4.311 mmHg [facility] CV [facility] VTI 25.353 cm [facility] CV [facility] I PACS AV area cont VTI 2.7 [...] Index 66 ml/m2 SSM CV FUJI PACS [id number] 7.967 cm SSM CV FUJ I PACS [id number] 8.115 cm SSM CV FUJ I PACS Prox Asc Ao Diameter Index 1.428 cm SSM CV FUJI PACS LV stroke vol BP 113.549 mL SSM CV FUJI PACS LVIDs index 1.04 1.3 - 2.1 cm/m2 SSM CV FUJI PACS LV LVIDd index 1.65 2.2 - 3.0 cm/m2 SSM CV FUJI PACS Anatomical Region Laterality Modality Ultrasound Narrative 11/06/2022 12:19 PM CDT Left Ventricle: Left ventricle size is normal. [...] Procedure Note Juliette Sandoval MD - 11/06/2022 Left Ventricle: Left ventricle size is normal. Mildly increased wallthickness. Ventricular mass is normal. Normal systolic function. EF by 2DSimpson biplane is 63%. Normal wall motion. Grade II diastolic dysfunctionwith elevated left atrial pressure. Left Atrium: Left atrium is severely dilated. Scott Lane MD ECHO CUPID * HLA ANTIBODY SCREEN LUM CLASS 2 SAB (10/28/2022 2:38 PM CDT) Only the most recent of6 resultswithin the time period is included. % PRA 0 11/13/2022 11:59 AM CDT [facility] ([employer]) Class 2 LUM SAB Moderate Risk DQB1*06:01, 06:03 11/13/2022 11:59 AM CDT [facility] ([employer]) Class 2 SAB Test Date [id number] 11/13/2022 11:59 AM CDT [facility] ([employer]) Comment: This test was developed and its performance characteristics determined by the [facility]. It has not been cleared or approved by the U.S. Food and Drug Administration. The FDA has determined that such clearance or approval is not necessary. This test is used for clinical purposes. It should not be regarded as investigational or for research. This laboratory is certified under the Clinical Laboratory Improvement Amendments of 1988 (CLIA-88) as qualified to perform high complexity clinical laboratory testing. CLIA ID# [id number] Performed at: [facility], [address] [place] [id number] Tag And Label Cutter:Dr. Juno Ledesma, PhD, Blood BLOOD SPECIMEN / Unknown No Charge Blood Draw / Unknown 10/28/2022 2:38 PM CDT 11/07/2022 2:38 PM CDT Alan Davenport MD LAB - BLOOD BANK ORD ERABLES [facility] ([facility]) [facility] [address] * HLA ANTIBODY SCREEN LUM CLASS 1 SAB (10/28/2022 2:38 PM CDT) Only the most recent of6 resultswithin the time period is included. % PRA 0 11/13/2022 11:59 AM CDT [facility] ([facility]) Class 1 SAB Test Date [id number] 11/13/2022 11:59 AM CDT [facility] ([facility]) Comment: This test was developed and its performance characteristics determined by the [facility]. It has not been cleared or approved by the U.S. Food and Drug Administration. The FDA has determined that such clearance or approval is not necessary. This test is used for clinical purposes. It should not be regarded as investigational or for research. This laboratory is certified under the Clinical Laboratory Improvement Amendments of 1988 (CLIA-88) as qualified to perform high complexity clinical laboratory testing. CLIA ID# [id number] Performed at: [facility], [address] [place] [phone] Tag And Label Cutter:Dr. Juno Ledesma, PhD, Blood BLOOD SPECIMEN / Unknown No Charge Blood Draw / Unknown 10/28/2022 2:38 PM CDT 11/07/2022 2:38 PM CDT Alan Davenport MD LAB - BLOOD BANK ORD ERABLES [facility] ([facility]) [address] [place] [address] * OXALATE BLOOD (03/04/2022 11:04 AM BOOKER) Oxalate <2.0 <=2.0 umol/L 03/09/2022 6:49 PM BOOKER [facility] [employer] ([facility]) Comment: INTERPRETIVE INFORMATION: Oxalate, Plasma This test was developed and its performance characteristics determined by [facility]. It has not been cleared or approved by the US Food and Drug Administration. This test was performed in a CLIA certified laboratory and is intended for clinical purposes. Performed By: [facility] [address] [place] [address] Surgery Specialist: Mk Egan MD, PhD Blood BLOOD SPECIMEN / Unknown Lab Venipuncture / Unknown 03/04/2022 11:04 AM BOOKER 03/04/2022 11:[address] MD LAB - CHEMISTR Y ORDERABLES Performing Organization Address [facility] Co de Phone Number [facility] [employer] [facility]) [address] [place] [address] * MRI ABDOMEN WWO CONTRAST (03/04/2022 10:47 AM BOOKER) Anatomical Region Laterality Modality Abdomen Magnetic Resonan ce 03/04/2022 11:0 9 AM BOOKER Impressions 03/04/2022 1:36 PM BOOKER Impression: 1.Focally decreased signal on opposed-phase images [...] hemorrhagic. Report dictated by Ashkan Almeida MD (workforce development vice president). I, Watson Phillips MD have personally reviewed and interpreted this examination/study. > Interpreting Provider: Watson Phillips MD on 03/04/2022 1:36 PM Narrative 03/04/2022 1:36 PM BOOKER PROCEDURE: MRI ABDOMEN WWO CONTRAST, DATE/TIME OF EXAM: 03/04/2022 10:47 AM, LOCATION [facility] INDICATION: Z01.818: Pre-transplant evaluation for [...] CONTRAST, DATE/TIME OF EXAM: 0:47 AM, LOCATION [facility] INDICATION: Z01.818: Pre-transplant evaluation for [...] them are hemorrhagic. Report dictated by Ashkan Elle, MD (workforce development vice president). Watson Leigh MD have personally reviewed and interpreted this examination/study. > Interpreting Provider: Watson Phillips MD on 03/04/2022 1:[address] MD MR ORDERABLES * CT CHEST WO CONTRAST (03/04/2022 10:43 AM BOOKER) Only the most recent of2 resultswithin the time period is included. Anatomical Region Laterality Modality Chest Computed Tomogra phy 03/04/2022 11:1 0 AM BOOKER Impressions 03/04/2022 12:25 PM BOOKER Impression: 1.Unchanged left lower lobe pulmonary nodules. [...] nature. > Dictated by Luis Muñoz DO (workforce development vice president). IWilfrid have personally reviewed and interpreted this examination/study. > Interpreting Provider: Wilfrid Fonseca on 03/04/2022 12:25 PM Narrative 03/04/2022 12:25 PM BOOKER PROCEDURE: CT CHEST WO CONTRAST, DATE/TIME OF EXAM: 03/04/2022 10:43 AM, LOCATION [facility] INDICATION: Z01.818: Pre-transplant evaluation for [...] CONTRAST, DATE/TIME OF EXAM: 03/04/2022 10:43AM, LOCATION [facility] INDICATION: Z01.818: Pre-transplant evaluation for [...] nature. > Dictated by Luis Muñoz DO (workforce development vice president). I, Wilfrid Fonseca have personally reviewed and interpreted this examination/study. > Interpreting Provider: Wilfrid Fonseca on 03/04/2022 12:[address] ORDERABLES * XR CHEST PA AND LATERAL (01/14/2022 10:12 AM BOOKER) Only the most recent of2 resultswithin the time period is included. Anatomical Region Laterality Modality Chest Radiographic Pastora ging 01/14/2022 10:2 3 AM BOOKER Narrative 01/14/2022 2:50 PM BOOKER PROCEDURE: XR CHEST 2VW, DATE/TIME OF EXAM: 01/14/2022 10:12 AM, LOCATION [facility] INDICATION: Z01.818: Pre-transplant evaluation for [...] hyperostosis. Report dictated by Ruddy Trivedi MD (workforce development vice president). Terry Leigh MD have personally reviewed and interpreted this examination/study. > Interpreting Provider: Terry De Leon MD on 01/14/2022 2:50 PM Procedure Note Tosha De Leon MD - 01/14/2022 PROCEDURE: XR CHEST 2VW, DATE/TIME OF EXAM: 01/14/2022 10:12 AM,LOCATION [facility] INDICATION: Z01.818: Pre-transplant evaluation for [...] hyperostosis. Report dictated by Ruddy Trivedi MD (workforce development vice president). Terry Leigh MD have personally reviewed and interpreted this examination/study. > Interpreting Provider: Terry De Leon MD on 01/14/2022 2:50 PM Marbin Flores MD DIAGNOSTIC IMAGING O RDERABLES * (ABNORMAL) URINALYSIS COMPLETE W MICROSCOPIC (01/14/2022 9:59 AM BOOKER) Only the most recent of2 resultswithin the time period is included. Color UA Straw Straw, Yellow 01/14/2022 11:31 AM [facility] Clarity UA Clear Clear 01/14/2022 11:31 AM [facility] Specific [place] UA 1.025 1.005 - 1.030 01/14/2022 11:31 AM [facility] pH UA 7.0 5.0 - 8.0 pH 01/14/2022 11:31 AM [facility] Protein UA 3+(A) Negative 01/14/2022 11:31 AM [facility] Glucose UA Trace(A) Negative 01/14/2022 11:31 AM [facility] Ketone UA Negative Negative 01/14/2022 11:31 AM [facility] Bilirubin UA Negative Negative 01/14/2022 11:31 AM [facility] Blood UA 1+(A) Negative 01/14/2022 11:31 AM [facility] Nitrite UA Negative Negative 01/14/2022 11:31 AM [facility] Leukocyte Esterase Negative Negative 01/14/2022 11:31 AM [facility] Urobilinogen UA Negative Negative mg/dL 01/14/2022 11:31 AM [facility] RBC UA 6-10(A) None Seen, 0-2, 3-5 /HPF 01/14/2022 11:31 AM [facility] WBC UA 0-5 None Seen, 0-5 /HPF 01/14/2022 11:31 AM [facility] Bacteria UA Trace(A) None /HPF 01/14/2022 11:31 AM [facility] Squamous Epithelial Cells UA 0-2 None Seen, 0-2, 3-5 /HPF 01/14/2022 11:31 AM [facility] Mucus UA 1+ /LPF 01/14/2022 11:31 AM [facility] Hyaline Casts UA 0-2 None Seen, 0-2 /LPF 01/14/2022 11:31 AM [facility] Urine URINE SPECIMEN OBTAINED BY CLEAN CATCH PROCEDURE / Unknown Collection / Unknown 01/14/2022 9:59 AM [facility] 01/14/2022 10:47 AM [facility] - 01/14/2022 11:31 AM BOOKER Marbin Flores MD LAB - URINALYSIS ORD ERABLES Performing Organization Address [facility] Co de Phone Number [address] [address], [facility] [phone] * PROTEIN URINE RANDOM QUANTITATIVE (01/14/2022 9:59 AM BOOKER) Only the most recent of2 resultswithin the time period is included. Protein Urine 365 Not Established mg/dL 01/14/2022 11:47 AM BOOKER [facility] Comment:Result obtained by seema christianson. Urine URINE SPECIMEN OBTAINED BY CLEAN CATCH PROCEDURE / Unknown Collection / Unknown 01/14/2022 9:59 AM BOOKER 01/14/2022 10:47 AM BOOKER Marbin Flores MD LAB - URINE CHEMISTR Y ORDERABLES Performing Organization Address [facility] Co de Phone Number [address] [address], [facility] [phone] * CREATININE URINE RANDOM (01/14/2022 9:59 AM BOOKER) Only the most recent of2 resultswithin the time period is included. Creatinine Urine 81 Not Established mg/dL 01/14/2022 11:20 AM BOOKER [facility] Urine URINE SPECIMEN OBTAINED BY CLEAN CATCH PROCEDURE / Unknown Collection / Unknown 01/14/2022 9:59 AM BOOKER 01/14/2022 10:47 AM BOOKER Marbin Flores MD LAB - URINE CHEMISTR Y ORDERABLES Performing Organization Address [facility]/ZIP Co de Phone Number [address] [address], [facility] [phone] * CANNABINOID SCREEN BLOOD (01/14/2022 9:54 AM BOOKER) Only the most recent of2 resultswithin the time period is included. Marijuana Metabolites Negative 01/19/2022 8:07 PM BOOKER [facility] ([facility]) Comment:REFERENCE RANGE: thr shold: 5 ng/mL Specimen Type Comment 01/19/2022 8:07 PM BOOKER [facility] ([facility]) Comment: WHOLE BLOOD This specimen was screened by immunoassay at the thresholds listed above. Presumptive positive results have not been confirmed by an alternate method; results are intended for clinical medical purposes. Please contact the laboratory if confirmatory testing is desired. This test was developed and its performance characteristics determined by [facility]. It has not been cleared or approved by the Food and Drug Administration. Blood BLOOD SPECIMEN / Unknown Lab Venipuncture / Unknown 01/14/2022 9:54 AM BOOKER 01/14/2022 10:49 AM BOOKER Narrative [facility] ([facility]) - 01/19/2022 8:07 PM BOOKER Performed at: [facility] [address] [id number] Tag And Label Cutter: Ev Camarena [facility], Phone: [phone] Marbin Flores MD [facility] Performing Organization Address City/State/[facility] Co de Phone Number [facility] ([facility]) [address] [place] [address] * COCAINE METABOLITE QUANT (01/14/2022 9:54 AM BOOKER) Only the most recent of2 resultswithin the time period is included. [facility] Cocaine and Metabolite Blood <20 ng/mL 01/18/2022 12:32 AM BOOKER [facility] ([facility]) Comment: INTERPRETIVE INFORMATION: Cocaine Metabolite, Serum or Plasma, Quantitative Methodology: Quantitative Gas Chromatography- Mass Spectrometry/Quantitative Liquid Chromatography-Tandem Mass Spectrometry Positive cutoff: 20 ng/mL For medical purposes only; not valid for forensic use. The concentration value must be greater than or equal to the cutoff to be reported as positive. Interpretive questions should be directed to the laboratory. This test was developed and its performance characteristics determined by [employer]. It has not been cleared or approved by the US Food and Drug Administration. This test was performed in a CLIA certified laboratory and is intended for clinical purposes. Performed By: [employer] [employer] [address] [place] [address] Surgery Specialist: Mk Egan MD, PhD Blood BLOOD SPECIMEN / Unknown Lab Venipuncture / Unknown 01/14/2022 9:54 AM BOOKER 01/14/2022 10:48 AM BOOKER Marbin Flores MD LAB - CHEMISTRY ORDE AZUCENA [employer] [facility]) [address] [place] [address], [facility] * SYPHILIS ANTIBODY CASCADING REFLEX (01/14/2022 9:54 AM BOOKER) Only the most recent of2 resultswithin the time period is included. Treponema pallidum Antibody Non-react sylvie Non-react sylvie 01/14/2022 11:52 AM BOOKER [facility] Comment: No Laboratory evidence of syphilis infection. Note: Circulating antibodies may be low or undetectable in early infection. If recent exposure is suspected, re-draw sample in 2-4 weeks and repeat testing. Blood BLOOD SPECIMEN / Unknown Lab Venipuncture / Unknown 01/14/2022 9:54 AM BOOKER 01/14/2022 10:48 AM BOOKER Marbin Flores MD LAB - SEROLOGY ORDER MICHELLE [facility] [address] [address], [facility] [phone] * AMPHETAMINE BLOOD CONFIRMATION (01/14/2022 9:54 AM BOOKER) Only the most recent of2 resultswithin the time period is included. Amphetamines Confirmation <20 ng/mL 2022 12:55 AM BOOKER [employer] ([facility]) Comment: INTERPRETIVE INFORMATION: Amphetamines, Serum or Plasma, Quantitative Methodology: Quantitative Liquid Chromatography-Tandem Mass Spectrometry Positive cutoff: 20 ng/mL For medical purposes only; not valid for forensic use. The absence of expected drug(s) and/or drug metabolite(s) may indicate non-compliance, inappropriate timing of specimen collection relative to drug administration, poor drug absorption, or limitations of testing. The concentration value must be greater than or equal to the cutoff to be reported as positive. Interpretive questions should be directed to the laboratory. This test was developed and its performance characteristics determined by [employer]. It has not been cleared or approved by the US Food and Drug Administration. This test was performed in a CLIA certified laboratory and is intended for clinical purposes. Methamphetamine Confirmation <20 ng/mL 2022 12:[address] [facility] ([facility]) MDA Confirmation <20 ng/mL 01/21/20 22 12:55 AM BOOKER [facility]) MDMA Confirm <20 ng/mL 2022 12:55 AM BOOKER [facility]) MDEA Confirmation <20 ng/mL 022 12:55 AM BOOKER [facility]) Comment: Performed By: [employer] [address] [place] [address] Surgery Specialist: Mk Egan MD, PhD Blood BLOOD SPECIMEN / Unknown Lab Venipuncture / Unknown 01/14/2022 9:54 AM BOOKER 01/14/2022 10:48 AM BOOKER Marbin Flores MD LAB - CHEMISTRY ORDE AZUCENA [facility] [employer] [facility]) [address] [place] [address] * QUANTIFERON-TB GOLD PLUS 4-TUBE (01/14/2022 9:54 AM BOOKER) Only the most recent of2 resultswithin the time period is included. QuantiFERON NIL 0.02 IU/mL 1:[address] [facility] ([facility]) Comment: Performed By: [employer] [address] [place] [address] Surgery Specialist: Mk Egan MD, PhD QuantiFERON TB Gold Plus Negative Negative 01/17/2022 1:41 AM [facility] [employer] ([facility]) Comment: Interpretive Data: Quantiferon TB Gold Plus [...] Mycobacterium tuberculosis Infection --- [place], 2010 (http://www.cdc.gov/mmwr/preview/mmwrhtml/wd6132a8.htm), for more information concerning test performance in low-prevalence populations and use in occupational screening. QuantiFERON Plus TB1 Minus NIL 0.00 0.00 - 0.34 IU/mL 01/17/2022 1:41 AM BOOKER [employer] ([facility]) QuantiFERON Plus TB2 Minus NIL 0.01 0.00 - 0.34 IU/mL 01/17/2022 1:41 AM BOOKER [facility] ([facility]) QuantiFERON Mitogen Minus NIL >10.00 IU/mL 01/17/2022 1:41 AM BOOKER [facility] [employer] ([facility]) Blood BLOOD SPECIMEN / Unknown Lab Venipuncture / Unknown 01/14/2022 9:54 AM BOOKER 01/14/2022 10:49 AM BOOKER Marbin Flores MD LAB - CHEMISTRY PK ZENG [facility] Organization Address City/State/ZIP Co de Phone Number [facility] [employer] ([facility]) [address] * (ABNORMAL) PTH INTACT ([facility]) (01/14/2022 9:54 AM BOOKER) Only the most recent of2 resultswithin the time period is included. Pathologist [facility] PTH Intact 266.9(H) 8.0 - 77.0 pg/mL 01/14/2022 11:37 AM BOOKER [facility] Blood BLOOD SPECIMEN / Unknown Lab Venipuncture / Unknown 01/14/2022 9:54 AM BOOKER 01/14/2022 11:00 AM BOOKER Marbin Flores MD LAB - CHEMISTRY PK ZENG Performing Organization Address City/[facility]/ZIP Co de Phone Number [address] [address], [facility] [phone] * HIV-1 HIV-2 ANTIBODY + HIV P24 AG PANEL (01/14/2022 9:54 AM BOOKER) [facility] HIV Antigen/Antibod y 1 & 2 Non-reacti ve Non-react sylvie 01/14/2022 11:52 AM BOOKER [facility] Comment:No Laboratory eviden ce of HIV infection. Blood BLOOD SPECIMEN / Unknown Lab Venipuncture / Unknown 01/14/2022 9:54 AM BOOKER 01/14/2022 10:48 AM BOOKER Marbin Flores MD LAB - CHEMISTRY PK ZENG Performing Organization Address [facility] Co de Phone Number [address] [address], [facility] [phone] * OPIATES BLOOD (01/14/2022 9:54 AM BOOKER) Only the most recent of2 resultswithin the time period is included. [facility] Opiates Screen Negative 01/19/2022 8:07 PM BOOKER [facility] ([facility]) Comment:REFERENCE RANGE: thr shold: 10 ng/mL Oxycodone Screen Negative 01/20/20 8:07 PM BOOKER [facility] ([facility]) Comment:REFERENCE RANGE: thr shold: 10 ng/mL Specimen Type Comment 01/19/2022 8:07 PM BOOKER [facility] ([facility]) Comment: WHOLE BLOOD This specimen was screened by immunoassay at the thresholds listed above. Presumptive positive results have not been confirmed by an alternate method; results are intended for clinical medical purposes. Please contact the laboratory if confirmatory testing is desired. This test was developed and its performance characteristics determined by [facility]. It has not been cleared or approved by the Food and Drug Administration. Blood BLOOD SPECIMEN / Unknown Lab Venipuncture / Unknown 01/14/2022 9:54 AM BOOKER 01/14/2022 10:49 AM BOOKER Narrative [facility] ([facility]) - 01/19/2022 8:07 PM BOOKER Performed at: 01 - [facility] [address] [place] [address] [id number] Tag And Label Cutter: Ev Camarena [facility], Phone: [phone] Marbin Flores MD LAB - CHEMISTRY PK ZENG Performing Organization Address City/[facility]/ZIP Co de Phone Number [facility] ([facility]) [address] [place] [address] * URIC ACID BLOOD (01/14/2022 9:54 AM BOOKER) Only the most recent of2 resultswithin the time period is included. [facility] Uric Acid 7.0 3.5 - 7.2 mg/dL 01/14/2022 11:38 AM BOOKER [facility] Blood BLOOD SPECIMEN / Unknown Lab Venipuncture / Unknown 01/14/2022 9:54 AM BOOKER 01/14/2022 11:00 AM BOOKER Marbin Flores MD LAB - CHEMISTRY PK ZENG Performing Organization Address City/[facility] Co de Phone Number [facility] [address] [address], [facility] [phone] * STRONGYLOIDES ANTIBODY IGG (01/14/2022 9:54 AM BOOKER) Only the most recent of2 resultswithin the time period is included. [facility] Strongyloides Antibody IgG 0.1 <=0.9 IV 01/16/2022 1:02 AM BOOKER [facility] [employer] ([facility]) Comment: INTERPRETIVE INFORMATION: Strongyloides Ab, IgG by BRIDGER 0.9 IV or less....... Negative - No significant level of Strongyloides IgG antibody detected. 1.0 IV................Equivocal - The Strongyloides IgG antibody result is borderline and therefore inconclusive. Recommend retesting the patient in 2-4 weeks, if clinically indicated. 1.1 IV or greater ... Positive - IgG antibodies to Strongyloides detected, which may suggest current or past infection. False-positive results may occur with prior exposure to other helminth infections. Testing low-prevalence populations may also result in false-positive results. Performed By: [employer] [address] [place] [address] Surgery Specialist: Mk Egan MD, PhD Blood BLOOD SPECIMEN / Unknown Lab Venipuncture / Unknown 01/14/2022 9:54 AM BOOKER 01/14/2022 10:48 AM BOOKER Marbin Flores MD LAB - SEROLOGY ORDER MICHELLE [facility] [employer] [facility]) [address] [place] [address], [facility] * CYTOMEGALOVIRUS ANTIBODY IGG BLOOD (01/14/2022 9:54 AM BOOKER) Only the most recent of2 resultswithin the time period is included. Cytomegalovirus Antibody IgG <0.20 U/mL 01/15/2022 4:12 PM BOOKER [facility] [employer] ([facility]) Comment: INTERPRETIVE INFORMATION: Cytomegalovirus Antibody, IgG 0.59 U/mL or less......... Not Detected 0.6 - 0.69 U/mL........... Indeterminate-Repeat testing in 10-14 days may be helpful. 0.70 U/mL or greater...... Detected In immunocompromised patients, [...] laboratory at the same time. Performed By: [employer] [address] [place] [address] Surgery Specialist: Mk Egan MD, PhD Blood BLOOD SPECIMEN / Unknown Lab Venipuncture / Unknown 01/14/2022 9:54 AM BOOKER 01/14/2022 10:48 AM BOOKER Marbin Flores MD LAB - CHEMISTRY PK ZENG [employer] [facility]) [address] [place], [place] [address] * TRANSFERRIN (01/14/2022 9:54 AM BOOKER) Only the most recent of2 resultswithin the time period is included. Transferrin 176 174 - 382 mg/dL 01/14/2022 11:36 AM BOOKER [facility] Blood BLOOD SPECIMEN / Unknown Lab Venipuncture / Unknown 01/14/2022 9:54 AM BOOKER 01/14/2022 10:48 AM BOOKER Marbin Flores MD LAB - CHEMISTRY PK ZENG Performing Organization Address City/[facility]/ZIP Co de Phone Number [address] [address], [facility] [phone] * TOXOPLASMA GONDII ANTIBODY IGG (01/14/2022 9:54 AM BOOKER) Only the most recent of2 resultswithin the time period is included. Pathologist [facility] Toxoplasma Antibody IgG <3.0 IU/mL 01/15/2022 4:23 PM BOOKER [facility] ([facility]) Comment: INTERPRETIVE INFORMATION: Toxoplasma Ab, IgG 7.1 IU/mL or less....... Not Detected 7.2-8.7 IU/mL .......... Indeterminate-Repeat testing in 10-14 days may be helpful. 8.8 IU/mL or greater ... Detected The best [...] the amount of antibody present. Performed By: [facility] [address] [place] [address] Surgery Specialist: Mk Egan MD, PhD Blood BLOOD SPECIMEN / Unknown Lab Venipuncture / Unknown 01/14/2022 9:54 AM BOOKER 01/14/2022 10:48 AM BOOKER Marbin Flores MD LAB - CHEMISTRY PK ZENG [facility] ([facility]) [address] * (ABNORMAL) HEMOGLOBIN A1C (01/14/2022 9:54 AM BOOKER) Only the most recent of2 resultswithin the time period is included. Hemoglobin A1c 8.7(H) <=5.6 % 01/14/2022 1:10 PM BOOKER [facility] Estimated Average Glucose 203 mg/dL 01/14/2022 1:10 PM BOOKER [facility] Comment: HbA1c Interpretation: Normal : < 5.7% Pre-diabetes: 5.7-6.4% Diabetes: Equal to or greater than 6.5% Test results diagnostic of diabetes should be repeated for confirmation. Treatment target values recommended by ADA and other clinical organizations should be used to evaluate metabolic control in patients. Reference: [place] [employer], Standards of Care in Diabetes -2020 In patients 70 years and older consider HbA1c target range of 7.0-7.5% (Reference: [employer], et al. JAMDA. 2012) The Sebia assay for the measurement of HbA1c is a National Glycohemoglobin Standardization Program (NGSP) certified method. Blood BLOOD SPECIMEN / Unknown Lab Venipuncture / Unknown 01/14/2022 9:54 AM BOOKER 01/14/2022 11:00 AM BOOKER Marbin Flores MD LAB - CHEMISTRY PK ZENG [facility] [address] [place] [address], [place] [phone] * VITAMIN D 25-HYDROXY (01/14/2022 9:54 AM BOOKER) Only the most recent of2 resultswithin the time period is included. Vitamin D, 25 Hydroxy 39.0 30.0 - 80.0 ng/mL 01/14/2022 11:47 AM BOOKER [facility] Comment: The recommendations for 25-Hydroxy Vitamin D clinical decision points are as follows: Deficient: <20.0 ng/mL Insufficient: 20.0 - 29.9 ng/mL Sufficient: 30.0 - 100.0 ng/mL Potential Toxicity: >100 ng/mL Reference: The Endocrine Society Clinical Practice Guidelines. 2011 If the 25-Hydroxy Vitamin D results are inconsitent with clinical evidence, it is recommended that follow-up testing using a method such as LC/MS/MS be performed to confirm the result. Blood BLOOD SPECIMEN / Unknown Lab Venipuncture / Unknown 01/14/2022 9:54 AM BOOKER 01/14/2022 11:00 AM BOOKER Marbin Flores MD LAB - CHEMISTRY PK ZENG [facility] Organization Address City/State/ZIP Co de Phone Number [facility] [address] [place] [address], [facility] [phone] * NICOTINE + METABOLITES BLOOD (01/14/2022 9:54 AM BOOKER) Only the most recent of2 resultswithin the time period is included. Nicotine <5 ng/mL 01/17/2022 2:23 PM BOOKER [facility] [employer] ([facility]) Comment: Consistent with abstinence from nicotine-containing products for at least 1 week. INTERPRETIVE INFORMATION: Nicotine and Metabolites, Serum or Plasma, Quantitative Methodology: Quantitative Liquid Chromatography-Tandem Mass Spectrometry Positive cutoff: 5 ng/mL For medical purposes only; not valid for forensic use. This test is designed to evaluate recent use of nicotine-containing products. Passive and active exposure cannot be discriminated definitively, although a cutoff of 10 ng/mL cotinine is frequently used for surgery qualification purposes. For smoking cessation programs or compliance testing, the absence of expected drug(s) and/or drug metabolite(s) may indicate non-compliance, inappropriate timing of specimen collection relative to drug administration, poor drug absorption, or limitations of testing. This test cannot distinguish between use of tobacco and purified nicotine products. The concentration value must be greater than or equal to the cutoff to be reported as positive. This test was developed and its performance characteristics determined by [facility] [employer]. It has not been cleared or approved by the US Food and Drug Administration. This test was performed in a CLIA certified laboratory and is intended for clinical purposes. Performed By: [facility] [address] [place] [address] Surgery Specialist: Mk Egan MD, PhD Cotinine <5 ng/mL 01/17/2022 2:23 PM BOOKER [facility]) Blood BLOOD SPECIMEN / Unknown Lab Venipuncture / Unknown 01/14/2022 9:54 AM BOOKER 01/14/2022 10:48 AM BOOKER Marbin Flores MD LAB - CHEMISTRY ORDE AZUCENA [facility]) [address] [place] [address], [facility] * (ABNORMAL) CBC W AUTO DIFFERENTIAL (01/14/2022 9:54 AM BOOKER) Only the most recent of4 resultswithin the time period is included. WBC 7.4 3.5 - 10.5 10 3/uL 01/14/2022 11:33 AM [facility] RBC 3.19(L) 4.30 - 5.70 10 6/uL 01/14/2022 11:33 AM [facility] Hemoglobin 9.7(L) 12.0 - 17.6 g/dL 01/14/2022 11:33 AM [facility] Hematocrit 28.9(L) 35.2 - 51.7 % 01/14/2022 11:33 AM [facility] MCV 90.6 80.7 - 98.3 fL 01/14/2022 11:33 AM [facility] MCH 30.4 26.7 - 34.0 pg 01/14/2022 11:33 AM [facility] MCHC 33.6 30.8 - 35.9 g/dL 01/14/2022 11:33 AM [facility] RDW-SD 47.2 36.0 - 50.0 fL 01/14/2022 11:33 AM [facility] RDW-CV 14.2 11.2 - 14.8 % 01/14/2022 11:33 AM [facility] Platelet Count 148(L) 150 - 400 10 3/uL 01/14/2022 11:33 AM [facility] MPV 11.7 9.4 - 12.9 fL 01/14/2022 11:33 AM [facility] nRBC Absolute 0.00 0 10 3/uL 01/14/2022 11:33 AM [facility] n[employer] Auto 0.0 0 /100 WBC 01/14/2022 11:33 AM [facility] Neutrophils % 75.4(H) 35.0 - 70.0 % 01/14/2022 11:33 AM [facility] Lymphocytes % 11.6(L) 20.0 - 43.0 % 01/14/2022 11:33 AM [facility] Monocytes % 10.6 5.0 - 13.0 % 01/14/2022 11:33 AM [facility] Eosinophils % 0.1 0.0 - 6.0 % 01/14/2022 11:33 AM [facility] Basophil % 0.1 0.0 - 2.0 % 01/14/2022 11:33 AM [facility] Neutrophils Absolute 5.61 1.60 - 7.00 10 3/uL 01/14/2022 11:33 AM [facility] Lymphocyte Absolute 0.86(L) 1.10 - 3.90 10 3/uL 01/14/2022 11:33 AM [facility] Monocytes Absolute 0.79 0.26 - 1.07 10 3/uL 01/14/2022 11:33 AM [facility] Eosinophils Absolute 0.01 0.00 - 0.47 10 3/uL 01/14/2022 11:33 AM [facility] Basophils Absolute 0.01 0.00 - 0.08 10 3/uL 01/14/2022 11:33 AM [facility] Immature Granulocytes % 2.2(H) 0.0 - 1.0 % 01/14/2022 11:33 AM [facility] Immature Granulocytes Absolute 0.16 01/14/2022 11:33 AM [facility] Blood BLOOD SPECIMEN / Unknown Lab Venipuncture / Unknown 01/14/2022 9:54 AM BOOKER 01/14/2022 11:00 AM BOOKER Marbin Flores MD LAB - HEMATOLOGY ORD ERABLES [facility] [address] [place] [address], [facility] [phone] * (ABNORMAL) COMPREHENSIVE METABOLIC PANEL (01/14/2022 9:54 AM BOOKER) Only the most recent of2 resultswithin the time period is included. BUN 27(H) 7 - 26 mg/dL 01/14/2022 11:38 AM [facility] Creatinine 5.60(H) 0.71 - 1.16 mg/dL 01/14/2022 11:38 AM [facility] Sodium 142 136 - 145 mmol/L 01/14/2022 11:38 AM [facility] Potassium 3.6 3.5 - 4.5 mmol/L 01/14/2022 11:38 AM [facility] Chloride 100 98 - 107 mmol/L 01/14/2022 11:38 AM [facility] CO2 24 22 - 29 mmol/L 01/14/2022 11:38 AM [facility] Glucose 217(H) 70 - 115 mg/dL 01/14/2022 11:38 AM [facility] Calcium 8.3(L) 8.4 - 10.2 mg/dL 01/14/2022 11:38 AM [facility] Protein Total 6.8 6.0 - 8.3 g/dL 01/14/2022 11:38 AM [facility] Albumin 3.1(L) 3.4 - 5.0 g/dL 01/14/2022 11:38 AM [facility] Bilirubin Total 0.6 0.2 - 1.2 mg/dL 01/14/2022 11:38 AM [facility] Alkaline Phosphatase 98 40 - 150 U/L 01/14/2022 11:38 AM [facility] ALT 19 5 - 55 U/L 01/14/2022 11:38 AM [facility] AST 17 5 - 34 U/L 01/14/2022 11:38 AM [facility] Anion Gap 22(H) 8 - 18 01/14/2022 11:38 AM [facility] BUN/Creatinine Ratio 5(L) 7 - 23 01/14/2022 11:38 AM [facility] Osmolality Calculated 306(H) 270 - 300 mOsm/kg 01/14/2022 11:38 AM [facility] Albumin/Globulin Ratio 0.8(L) 1.1 - 2.3 01/14/2022 11:38 AM [facility] eGFR by CKD-EPI 11(L) >=90 mL/min/1.7 3 m2 01/14/2022 11:38 AM [facility] Blood BLOOD SPECIMEN / Unknown Lab Venipuncture / Unknown 01/14/2022 9:54 AM BOOKER 01/14/2022 11:00 AM BOOKER Marbin Flores MD LAB - CHEMISTRY ORDLien ZENG [address] [address], [facility] [phone] * PROSTATE SPECIFIC ANTIGEN SCREEN (01/14/2022 9:54 AM BOOKER) Only the most recent of2 resultswithin the time period is included. Pathologist [facility] PSA Total 3.3 0.0 - 4.0 ng/mL 01/14/2022 11:54 AM [facility] Blood BLOOD SPECIMEN / Unknown Lab Venipuncture / Unknown 01/14/2022 9:54 AM BOOKER 01/14/2022 11:00 AM BOOKER Marbin Flores MD LAB - CHEMISTRY ORDLien ZENG [address] [address], [facility] [phone] * (ABNORMAL) PHOSPHORUS BLOOD (01/14/2022 9:54 AM BOOKER) Only the most recent of2 resultswithin the time period is included. [facility] Phosphorus 5.4(H) 2.8 - 5.1 mg/dL 01/14/2022 11:38 AM BOOKER [facility] Blood BLOOD SPECIMEN / Unknown Lab Venipuncture / Unknown 01/14/2022 9:54 AM BOOKER 01/14/2022 11:00 AM BOOKER Marbin Flores MD LAB - CHEMISTRY PK ZENG Performing Organization Address City/[facility]/ZIP Co de Phone Number [address] [address], [facility] [phone] * IRON BLOOD (01/14/2022 9:54 AM BOOKER) Only the most recent of2 resultswithin the time period is included. [facility] Iron 62 50 - 175 ug/dL 01/14/2022 11:36 AM [facility] Blood BLOOD SPECIMEN / Unknown Lab Venipuncture / Unknown 01/14/2022 9:54 AM BOOKER 01/14/2022 10:48 AM BOOKER Marbin Flores MD LAB - CHEMISTRY PK ZENG Performing Organization Address [facility] Co de Phone Number [address] [address], [facility] [phone] * LDL CHOLESTEROL DIRECT (01/14/2022 9:54 AM BOOKER) Only the most recent of3 resultswithin the time period is included. [facility] LDL Direct 46 <100 mg/dL 01/14/2022 11:57 AM BOOKER [facility] Comment: ATP III Classification of LDL Cholesterol: <100 mg/dL: Optimal 100 - 129 mg/dL: Near Optimal/Above Optimal 130 - 159 mg/dL: Borderline High 160 - 189 mg/dL: High >190 mg/dL: Very High Blood BLOOD SPECIMEN / Unknown Lab Venipuncture / Unknown 01/14/2022 9:54 AM BOOKER 01/14/2022 11:00 AM BOOKER Marbin Flores MD LAB - CHEMISTRY PK ZENG Performing Organization Address City/[facility]/ZIP Co de Phone Number [address] [address], [facility] [phone] * HEPATITIS B SURFACE ANTIBODY (01/14/2022 9:54 AM BOOKER) Only the most recent of2 resultswithin the time period is included. Hepatitis B Virus Surface Antibody Non-react sylvie Non-react sylvie 01/14/2022 11:52 AM BOOKER [facility] Comment: < 8 mIU/mL Hepatitis B surface Antibody (HBsAb). Nonreactive for HBsAb - individual is considered not immune to Hepatitis B Virus infection. Hepatitis B Surface Antibody Quantitative 1.2 <8.0 mIU/mL 01/14/2022 11:52 AM BOOKER [facility] Comment: Hepatitis B Surface Antibody Numeric Result Interpretation: Nonreactive: <8.0 mIU/mL Indeterminate: 8.0 - 12.0 mIU/mL Reactive: >12.0 mIU/mL Blood BLOOD SPECIMEN / Unknown Lab Venipuncture / Unknown 01/14/2022 9:54 AM BOOKER 01/14/2022 10:48 AM BOOKER Marbin Flores MD LAB - CHEMISTRY PK ZENG Performing Organization Address [facility] Co de Phone Number [address] [address], [facility] [phone] * HEPATITIS B CORE ANTIBODY (01/14/2022 9:54 AM BOOKER) Only the most recent of2 resultswithin the time period is included. HBc Antibody Total Non-reacti ve Non-reacti ve 01/14/2022 11:52 AM BOOKER [facility] Blood BLOOD SPECIMEN / Unknown Lab Venipuncture / Unknown 01/14/2022 9:54 AM BOOKER 01/14/2022 10:48 AM BOOKER Marbin Flores MD LAB - CHEMISTRY PK ZENG Performing Organization Address City/[facility]/ZIP Co de Phone Number [address] [place] [address], [facility] [phone] * HEPATITIS B SURFACE ANTIGEN W RFLX CONFIRMATION (01/14/2022 9:54 AM BOOKER) Only the most recent of2 resultswithin the time period is included. Hepatitis B Virus Surface Antigen Non-reacti ve Non-reacti ve 01/14/2022 11:52 AM BOOKER [facility] Blood BLOOD SPECIMEN / Unknown Lab Venipuncture / Unknown 01/14/2022 9:54 AM BOOKER 01/14/2022 10:48 AM BOOKER Marbin Flores MD LAB - CHEMISTRY PK ZENG [address] [address], [facility] [facility] [phone] * ALCOHOL ETHYL BLOOD (01/14/2022 9:54 AM BOOKER) Only the most recent of2 resultswithin the time period is included. Pathologist [facility] Ethanol (mg/dL) <10 <=10 mg/dL 11:38 AM [facility] Ethanol Calculated (g/dL) <0.010 <0.010 g/dL 01/14/2022 11:38 AM [facility] Blood BLOOD SPECIMEN / Unknown Lab Venipuncture / Unknown 01/14/2022 9:54 AM BOOKER 01/14/2022 11:00 AM BOOKER Narrative [facility] - 01/14/2022 11:38 AM BOOKER Ethanol Interp <10: None Detected. Depression of [employer]: >100 mg/dl Potentially Critical: >250 mg/dl Potentially [...] Flores MD LAB - CHEMISTRY PK ZENG [address] [place] [address], [facility] [phone] * HEPATITIS C ANTIBODY (01/14/2022 9:54 AM BOOKER) Only the most recent of2 resultswithin the time period is included. [facility] Hepatitis C Antibody Non-react sylvie Non-reac tive 01/14/2022 11:52 AM BOOKER [facility] Comment:Hepatitis C Antibody screen indicates no serologic evidence of past or current infection with Hepatitis C Virus. Patients with unexplained liver disease who are immunocompromised or suspected of having acute Hepatitis C infection may benefit from Nucleic Acid Test (MARLON) for Hepatitis C Viral RNA to confirm Hepatitis C status. Blood BLOOD SPECIMEN / Unknown Lab Venipuncture / Unknown 01/14/2022 9:54 AM BOOKER 01/14/2022 10:48 AM BOOKER Marbin Flores MD LAB - CHEMISTRY PK ZENG Performing Organization Address City/[facility]/ZIP Co de Phone Number [address] [address], [facility] [phone] * HEPATITIS A ANTIBODY (01/14/2022 9:54 AM BOOKER) Only the most recent of2 resultswithin the time period is included. [facility] Hepatitis A Virus Antibody Total Negative Negative 01/15/2022 1:38 PM BOOKER [employer] ([facility]) Comment: Performed by [employer], [address] [place], [place] [id number] [email or web address] Egan MD, PHD, Lab. Director Blood BLOOD SPECIMEN / Unknown Lab Venipuncture / Unknown 01/14/2022 9:54 AM BOOKER 01/14/2022 10:48 AM BOOKER Marbin Flores MD LAB - CHEMISTRY PK ZENG Performing Organization Address City/[facility]/ZIP Co de Phone Number [employer] [facility]) [address] [place], [place] [address] * (ABNORMAL) FERRITIN (01/14/2022 9:54 AM BOOKER) Only the most recent of2 resultswithin the time period is included. Ferritin 847(H) 22 - 275 ng/mL 01/14/2022 11:52 AM [facility] Blood BLOOD SPECIMEN / Unknown Lab Venipuncture / Unknown 01/14/2022 9:54 AM BOOKER 01/14/2022 10:48 AM BOOKER Marbin Flores MD LAB - CHEMISTRY PK ZENG Performing Organization Address [facility]/ZIP Co de Phone Number [address] [address], [facility] [phone] * (ABNORMAL) LIPID PROFILE (01/14/2022 9:54 AM BOOKER) Only the most recent of3 resultswithin the time period is included. Cholesterol Total 173 <200 mg/dL 01/14/2022 11:38 AM [facility] HDL 21(L) >40 mg/dL 01/14/2022 11:38 AM [facility] Comment: ATP III Classification of HDL Cholesterol: <40 mg/dL: Considered a major risk factor. >60 mg/dL: Considered a negative risk factor. LDL Calculated 01/14/2022 11:38 AM [facility] Comment:Calculation of LDL v alue was not performed because triglyceride concentrations greater than 400 mg/dL render the calculated value invalid. For this reason, the LDL Direct assay for measurement of LDL Cholesterol has been performed (per laboratory protocol). Triglycerides 706(H) <150 mg/dL 01/14/2022 11:38 AM [facility] Comment: ATP III Classification of Triglycerides: <150 mg/dL: Normal 150 - 199 mg/dL: Borderline High 200 - 400 mg/dL: High >500 mg/dL: Very High Blood BLOOD SPECIMEN / Unknown Lab Venipuncture / Unknown 01/14/2022 9:54 AM BOOKER 01/14/2022 11:00 AM BOOKER Marbin Flores MD LAB - CHEMISTRY PK ZENG [address] [place] [address], [facility] [phone] * ECHO COMPLETE (11/07/2021 11:30 AM CDT) [...] 06/21/2021 11:06 AM CDT Santiago Sellers MD 06/21/2021 11:06 AM VASCULAR AND INTERVENTIONAL RADIOLOGY EXAMINATION: TUNNELED CENTRAL VENOUS CATHETER REMOVAL Date: 06/21/2021 History: Kendall Carl is a 66 year old male with history of hypertension, diabetes, and end-stage renal disease who is now successfully dialyzing through a peritoneal dialysis catheter. Removal of the patient's tunneled hemodialysis catheter is requested. Diagnosis code: N18.6 Technique: The risks, benefits, and alternatives were discussed and informed consent was obtained. Prior to beginning the procedure, universal protocol was performed to confirm the patient's identity and the planned procedure. Maximum sterile barriers including cap, mask, hand hygiene, sterile gloves, sterile gown, large sterile drape, and 2% chlorhexidine for cutaneous antisepsis were used. The skin adjacent to the right thoracic tunneled catheter entry site was sterilely prepped, draped, and infiltrated with 1% lidocaine. Blunt dissection was then used to free the tunneled hemodialysis catheter cuff. The catheter was removed in its entirety and pressure held at the site to obtain hemostasis. A sterile dressing was applied. The patient tolerated the procedure well and without complications. Findings: The catheter exit site showed no evidence of infection. IMPRESSION: Successful tunneled hemodialysis catheter removal, as described above. Alexey Sellers M.D. Vascular and Interventional Radiology [facility] [phone] CC: Patient's cut off machine operator: Dr. Alan Mccall Dialysis unit: [facility] ([facility] Alan Mccall MD IR ORDERABLES * IR CENTRAL LINE INSERT TUNNEL (04/04/2021 10:31 AM BOOKER) Only the most recent of2 resultswithin the time period is included. Anatomical Region Laterality Modality Chest, Upper Extremity X-Ray Ang iography Narrative 04/04/2021 10:20 AM BOOKER Santiago Sellers MD 04/04/2021 10:21 AM VASCULAR AND INTERVENTIONAL RADIOLOGY EXAMINATION: TUNNELED CENTRAL VENOUS CATHETER PLACEMENT Date: 04/04/2021 History: Kendall Carl is a 66 year old male with history of hypertension, diabetes, CHF, and end-stage renal disease who is transitioning from peritoneal dialysis to hemodialysis. Tunneled hemodialysis catheter placement is requested per Dr. Mccall. Diagnosis code: N18.6 Fluoroscopy time: 0.2 minutes. Absorbed patient dose: 6.07 mGy. Technique: The risks, benefits, and alternatives were discussed and informed consent was obtained. Prior to beginning the procedure, universal protocol was performed to confirm the patient's identity and the planned procedure. Maximum sterile barriers including cap, mask, hand hygiene, sterile gloves, sterile gown, large sterile drape, sterile gel, sterile ultrasound probe cover, and 2% chlorhexidine for cutaneous antisepsis were used. Conscious sedation was administered using 1 mg of Versed and 50 mcg of Fentanyl at a sedation start time of 9:54 a.m. and end time of 10:05 a.m.. The patient was monitored throughout the entirety of the procedure by the interventional nurse in addition to the physician performing the procedure. Prior to the procedure, the right internal jugular vein was evaluated by ultrasound and an image of the patent vessel was recorded in the patient's electronic medical record. The skin over this vein was sterilely prepped, draped, and infiltrated with 1% lidocaine. This vein was then accessed with a micropuncture needle set using real-time ultrasound guidance. A guidewire was passed centrally using fluoroscopic guidance. The intravascular length from the access site to the right atrium was assessed. After infiltrating the skin in the subclavicular region with 1% lidocaine, a short transverse incision was made and the 23 cm tip-to-cuff Glidepath catheter was tunneled to the internal jugular vein access site and inserted through a peel-away sheath. The peel-away sheath was then removed. Catheter evaluation demonstrated excellent bidirectional flow. The catheter was flushed with heparin and sutured in place using 2-0 Prolene. The incision in the lower neck was closed using Exofin skin glue. Sterile dressings were applied. Findings: The final fluoroscopic image demonstrates the catheter with its tip in the right atrium. No complications were identified. IMPRESSION: Successful tunneled catheter placement, as described above. PLAN: The catheter is ready for immediate use. When treatment is completed, removal can be scheduled by calling [facility] at [phone]. Alexey Sellers M.D. Vascular and Interventional Radiology [facility] [phone] CC: Patient's cut off machine operator: Dr. Alan Mccall Dialysis unit: [facility] ([facility] Alan Mccall MD IR ORDERABLES * (ABNORMAL) [...] - 4.7 mg/dL 09/07/2020 1:34 PM CDT [facility] eGFR by MDRD 11(L) >60 mL/min/1.7 3m2 09/07/2020 1:34 PM CDT [facility] eGFR by MDRD 13(L) >60 mL/min/1.7 2 09/07/2020 1:34 PM CDT [facility] Blood BLOOD SPECIMEN / Unknown Lab Venipuncture / Unknown 09/07/2020 12:00 PM CDT 09/07/2020 1:05 PM CDT Alan Mccall MD LAB - CHEMISTRY PK ZENG [facility] Organization Address City/State/[facility] Co de Phone Number [facility] [address] [place] [address] * FL PERITONEUM (09/06/2020 10:07 AM CDT) Anatomical Region Laterality Modality Abdomen X-Ray Angiograph y Narrative 09/06/2020 11:46 AM CDT Aki Boles MD 09/06/2020 2:51 PM Kendall Carl 1955 [id number] Interventional Nephrology Procedure Date: 09/06/2020 Attending Surgeon and performing the procedure: Aki Boles MD Medical indication for the procedure: The patient is a 65-year-old man with end-stage renal disease receiving peritoneal dialysis as his form of renal replacement therapy. Patient has been referred due to malfunction of the catheter. There was an episode of condom in a de la paz for which is not receiving vancomycin prophylactically. However, the patient has experienced malfunction of the catheter manifested as a what appears to be ultrafiltration failure. The patient has a fill volume of 2500 mL and he appears to be retaining fluid. He has experienced pain in the right upper quadrant of the abdomen. Currently he does not have any abdominal pain. Review of systems: He has had very poor appetite over the last few days. End he is complaining of loose watery stools. EXAM: There were no vitals taken for this visit. General appearance: alert, cooperative, no distress Heart: Regular rate, normal S1 and S2, without murmurs Lungs: breath sounds normal and symmetric; no wheezes Abdomen: Soft benign bowel sounds are present. There is no tenderness to palpation. The exit site is without drainage. Extremities: no cyanosis or edema. Indications for the procedure: 1. Mechanical malfunction of a peritoneal dialysis catheter. 2. End-stage renal disease on dialysis. Procedures Performed: 1. PERITONEAL DIALYSIS CATHETER PLACEMENT: INJECTION OF AIR/CONTRAST OF PERITONEAL CAVITY; 67682; 25627 Findings: 1. Contrast injection through the catheter showed that the catheter curled tip has migrated from the floor of the pelvis to the left upper quadrant above the iliac crest. Contrast injection is observed forming a thin layer around the catheter to then dissipate into the rest of the Brick hernia cavity consistent with omental wrapping. Stool is observed in the transverse colon 2. An attempt to anti angled catheter from the omentum with a stiff Glidewire failed since the catheter is very heavily wrapped in omentum. Description of the procedure: After informed consent was obtained Kendall Carl was taken to the angiography suite and placed on the fluoroscopy table in the supine position. Prior to beginning the procedure, universal protocol was performed to confirm the patient's identity and the planned procedure. Maximum sterile barriers including cap, mask, hand hygiene, sterile gloves, sterile gown, large sterile drape, sterile gel, sterile ultrasound probe cover, and 2% chlorhexidine for cutaneous antisepsis were used. The abdomen and catheter were prepared with chlorhexidine and draped in the appropriate sterile fashion. The transfer set was removed. There was no drainage from the catheter. At this time contrast injection into the peritoneal cavity showed: 1. Contrast injection through the catheter showed that the catheter curled tip has migrated from the floor of the pelvis to the left upper quadrant above the iliac crest. Contrast injection is observed forming a thin layer [...] in omentum. The following parameters were monitored: Oxygen saturation, heart rate, blood pressure, End Tidal CO2, and response to care. The patient tolerated the procedure well. IP Contrast: 10 mm of Isovue 300. Fluoroscopy time: 1.3 min. Absorbed patient dose: 80.67 mGy. COMPLICATIONS: No. IMPRESSION: A peritoneal dialysis catheter that has migrated to the left upper quadrant and is heavily wrapped in omentum. RECOMMENDATIONS: 1. Will attempt in the using peristalsis to attempt reposition of the catheter. Will given an additional 24 hr. If the catheter is no reposition the patient is not able to successfully dialyze he has been scheduled to have a right internal jugular vein tunneled catheter dialysis placed tomorrow morning for the initiation of renal replacement therapy until the catheter can be reposition laparoscopically. 2. The patient will need the catheter reposition laparoscopic. Aki Boles MD 09/06/2020 11:46 AM [facility] VAC [phone] Christiano Perea MD [facility] Alan Mccall MD FLUOROSCOPY ORDERABL ES * CARDIAC PROCEDURE ORDER (08/07/2020 3:59 PM CDT) Narrative 08/07/2020 3:59 PM CDT Ordered by an unspecified provider. Scanned Document CARDIAC SERVICES ORD ERABLES * CCL CARDIAC CATH LEFT (08/04/2020 11:57 AM CDT) Anatomical Region Laterality Modality Chest X-Ray Angiograph y Narrative 08/16/2020 2:51 PM CDT [facility] Cardiac Catheterization Procedure Note Patient: Kendall Carl Age: [age] year old Date of : 1955 Procedure Date: 08/04/2020 FELLOW / SR. DIRECTOR: Jade Russo MD ATTENDING PHYSICIAN: Javier Lan MD DIAGNOSTIC APPROPRIATENESS CRITERIA: Pre-kidney transplant evaluation HISTORY: 65 year old male with past medical history of renal cell carcinoma (s/p partial nephrectomy), chronic kidney disease stage 4/5 (recently started on peritoneal dialysis), hypertension, coronary artery disease (with known 40% stenosis on mid LAD), diabetes, hypothyroidism Here for LHV/Coronary angiography with possible FFR LAD for pre kidney transplant eval ACCESS SITE(S): right radial artery , right subclavian artery was very tortuous with difficulty in engaging PROCEDURAL OVERVIEW: After obtaining informed consent and positioning the patient on the catheterization table, a timeout was performed to confirm the patient s name, date of , and procedure. Sedation was initiated and the patient was prepped and draped using standard sterile technique. Lidocaine was used for local anesthesia over the access site, after which the vessel was accessed and a sheath was placed using the modified Seldinger technique. Access was uncomplicated. Intra-arterial verapamil and intravenous heparin were administered to minimize risk of radial artery spasm or occlusion. Coronary angiography was performed using JR4 6F , XB LAD 3.0 6F catheter(s). Left heart catheterization was performed using JR4 6 F catheter. At the conclusion of the procedure, hemostasis was achieved using a radial compression device after removal of all catheters, wires, and sheaths. SEDATION: Moderate sedation on this adult patient was ordered by Dr. Lan , administered intravenously in their presence, and monitored by the procedure nurse as an independent trained observer who was present throughout the procedure. The following parameters were monitored: oxygen saturation, heart rate, blood pressure, and response to care. Intra-service sedation start time was 10:41 and end time was 11:41 during which the attending was present. Total physician intra-service sedation time was 60 minutes. For details on pre-moderate sedation and post-moderate sedation patient evaluation, please review the evaluation forms in [facility]. For details on monitored clinical parameters during the intra-service sedation time, please review the procedure nurse documentation in [facility] and [facility]. Total sedation administered as follows: 50 mcg IV fentanyl, 1 mg IV midazolam. 3 ml of 1% lidocaine was administered subcutaneously at the access site. TOTAL CONTRAST USED (Isovue 370): 190 ml RADIATION: AK: 1189 mGy DAP: 136 Gy.cm2 COMPLICATIONS: none HEMODYNAMIC FINDINGS: LVEDP 18 mmmHg ANGIOGRAPHY: i. [...] used for the PCI procedure. 4. GUIDE: XB LAD 3.0 6F guide catheter was used for intervention. 5. ORAL ANTIPLATELET THERAPY: Aspirin and clopidogrel 6. INTRAVENOUS ANTICOAGULATION DURING PCI: Heparin 7. INTERVENTIONAL WIRE: A AerMom[employer] Nearest wireless pressure wire was advanced beyond the lesion into the distal Vessel using a Guidezilla II guide extension catheter 8. PROCEDURE DETAILS:Balloon angioplasty was performed using a Trek 2.5 X 12 balloon. After angioplasty, a Xience drug-eluting 3.0 X 16 and Xience drug-eluting 3.0 X 8 stents were deployed across the lesion. Postdilation of the stent with NC Trek 3 X 12 9. After intervention, the 70 % stenosis [...] and Xience drug-eluting 3.0 X 8 stents RECOMMENDATIONS AFTER INTERVENTIONAL PROCEDURE: Aspirin 81 mg QDAY indefinitely. Clopidogrel 75 mg QDAY for 3-6 months. Aggressive modification of atherosclerotic risk factors. Jade Zuleta MD 08/04/2020 I was present for the entirety of the described procedure. Javier Lan MD Eliza Phan MD CARDIAC MAC OPERATOR RA DIANT * (ABNORMAL) GLUCOSE - POINT OF CARE (08/04/2020 9:23 AM CDT) Only the most recent of4 resultswithin the time period is included. [facility] Glucose WB/POC 403(H) 70 - 115 mg/dL 08/04/2020 9:27 AM CDT [facility] Specimen Type Venous 08/04/2020 9:27 AM CDT [facility] Blood BLOOD SPECIMEN / Unknown 08/04/2020 9:23 AM CDT 08/04/2020 9:27 AM CDT Eliza Phan MD LAB - POINT OF CARE ORDERABLES [facility] [address] [place] [address], [facility] [phone] * XR CHEST 1VW (08/02/2020 2:31 PM CDT) Anatomical Region Laterality Modality Chest Radiographic Pastora ging 08/02/2020 2:22 PM CDT Impressions 08/02/2020 2:32 PM CDT FINDINGS/IMPRESSION: There is no focal consolidation, pleural effusion, or pneumothorax. The cardiomediastinal silhouette is normal. Report drafted by Harsh Mohamud M.D. (resident) I, Dr. LUIS JAMES have personally reviewed and interpreted this examination/study. This report was electronically signed by LUIS JAMES on 08/02/2020 2:32 PM . Narrative 08/02/2020 2:32 PM CDT EXAMINATION: XR CHEST 1VW HISTORY: N28.89: Kidney mass COMPARISON: Chest x-ray dated 11/09/2019 Procedure Note Luis James, DO - 08/02/2020 EXAMINATION: XR CHEST 1VW HISTORY: N28.89: Kidney mass COMPARISON: Chest x-ray dated 11/09/2019 FINDINGS/IMPRESSION: There is no focal consolidation, pleural effusion, or pneumothorax. The cardiomediastinal silhouette is normal. Report drafted by Harsh Mohamud M.D. (resident) IDr. LUIS have personally reviewed and interpreted this examination/study. This report was electronically signed by LUIS JAMES on 08/02/2020 2:32 PM . Thomas Mendoza MD DIAGNOSTIC IMAGING ORDERABLES * CT KIDNEY BIOPSY( [id number] and [id number]) (08/02/2020 1:16 PM CDT) Anatomical Region Laterality [...] ELIAS ANTONY on 08/02/2020 3:48 PM . Narrative 08/02/2020 3:48 [...] PM CDT) Case Report Surgical Pathology Report Case: [id number] Authorizing Provider: Thomas Mendoza MD Collected: 08/02/2020 12:20 PM Ordering Location: [facility] IVR Received: 08/02/2020 01:42 PM Pathologist: Elinor Phillips MD Specimen: Kidney Mass, Biopsy 08/04/2020 3:00 PM CDT [facility] Final Diagnosis Kidney, left, biopsy (A): - Oncocytic neoplasm, see comment 08/04/2020 3:00 PM CDT [facility] Microscopic Description and Comment Immunostains show tumor cells are positive for CD117 and rare tumor cells are positive for CK7 and BerEP4. 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 08/04/2020 3:00 PM CDT [facility] Clinical History 65 year old male with hx of RCC of right kidney s/p partial nephrectomy in 2012 now presented with incidental left renal mass on w/u for tx 08/04/2020 3:00 PM CDT [facility] Gross Description The requisition and specimen(s) are identified with the patient's name, Kendall Carl. Received in formalin, specimen A , are 4 purple-ho soft tissue cores 0.5-1.4 cm in length with diameters of 0.1 cm and a 0.9 x 0.1 x 0.1 cm portion of red-brown blood clot, submitted in toto in cassette A1. 08/04/2020 3:00 PM CDT [facility] Disclaimer The performance characteristics of all immunohistochemical and indirect immunofluorescence stains (if any) cited in this report were determined by the Histopathology Laboratory of [facility]. Some of these tests were developed by [...] attending (teaching) pathologist. 08/04/2020 3:00 PM CDT [facility] Embedded Images 08/04/2020 3:00 PM CDT [facility] Pathology/Cytolo gy MASS / Unknown Collection / Unknown 08/02/2020 12:20 PM CDT 08/02/2020 1:42 PM CDT Thomas Mendoza MD LAB - PATHOLOGY/CY TOLOGY ORDERABLES Performing Organization Address [facility] Co de Phone Number [facility] [address] [phone] * PT-INR (07/28/2020 8:14 AM CDT) PT 12.8 12.1 - 14.8 sec 07/28/2020 8:41 AM CDT [facility] INR 1.0 0.9 - 1.1 07/28/2020 8:41 AM CDT [facility] Blood BLOOD SPECIMEN / Unknown Lab Venipuncture / Unknown 07/28/2020 8:14 AM CDT 07/28/2020 8:14 AM CDT Narrative [facility] - 07/28/2020 8:41 AM CDT Conventional Warfarin Anticoagulant Therapy: INR Reference Range: 2.0-3.0 Intensive Warfarin Anticoagulant Therapy: INR Reference Range: 2.5-3.5 Eliza Phan MD LAB - COAGULATION O RDERABLES Performing Organization Address City/State/[facility] Co de Phone Number [facility] [address] [place], [place] [phone] * (ABNORMAL) BASIC METABOLIC PANEL (CALCIUM TOTAL) (07/28/2020 8:14 AM CDT) Glucose 290(H) 70 - 105 mg/dL 07/28/2020 9:[facility] Sodium 137 136 - 145 mmol/L 07/28/2020 9:06 AM [facility] Potassium 4.2 3.5 - 5.1 mmol/L 07/28/2020 9:06 AM [facility] Chloride 101 98 - 107 mmol/L 07/28/2020 9:06 AM [facility] CO2 25 23 - 31 mmol/L 07/28/2020 9:06 AM [facility] Calcium 8.8 8.4 - 10.4 mg/dL 07/28/2020 9:06 AM [facility] Anion Gap 11 8 - 18 mmol/L 07/28/2020 9:06 AM [facility] BUN 38(H) 8.4 - 25.7 mg/dL 07/28/2020 9:06 AM [facility] Creatinine 5.77(H) 0.72 - 1.25 mg/dL 07/28/2020 9:06 AM [facility] eGFR by MDRD 10(L) >60 mL/min/1.7 3m2 07/28/2020 9:06 AM [facility] eGFR by MDRD 12(L) >60 mL/min/1.7 3m2 07/28/2020 9:06 AM [facility] [facility] Blood BLOOD SPECIMEN / Unknown Lab Venipuncture / Unknown 07/28/2020 8:14 AM CDT 07/28/2020 8:14 AM CDT Eliza Phan MD LAB - CHEMISTRY ORD ERABLES [facility] [address] [place] [address] * CT KIDNEYS WWO CONTRAST [...] stability. Report dictated by Donny Oneill DO (workforce development vice president) I, Dr. RODRICK JOSEPH have personally reviewed and interpreted this examination/study. This report was electronically signed by RODRICK JOSEPH on 06/15/2020 1:16 PM . Narrative 06/15/2020 1:16 [...] stability. Report dictated by Donny Oneill DO (workforce development vice president) I, Dr. RODRICK JOSEPH have personally reviewed and interpreted this examination/study. This report was electronically signed by RODRICK JOSEPH on 11:16 PM . Alna Davenport MD CT ORDERABLES * HEMOGLOBIN A1C - POINT OF CARE (AMB) [facility] (05/17/2020 1:19 PM CDT) Hemoglobin A1c POCT 11.1 BLOOD SPECIMEN / Unknown 05/17/2020 1:19 PM CDT Miya Juárez APRN-[employer] LAB - POINT O F CARE ORDERABLES * FL CYSTOGRAM VOIDING (12/02/2019 10:00 AM CDT) Anatomical Region Laterality Modality Abdomen, Pelvis Radiographic Pastora ging, X-Ray Angiography 12/02/2019 1:33 PM CDT Impressions 12/02/2019 1:40 PM CDT IMPRESSION: Normal bladder with no evidence of reflux or post void residual. This report was electronically signed by RAYMUNDO WORLEY M.D. on 12/02/2019 1:40 PM . Narrative 12/02/2019 1:40 PM CDT Exam: FL CYSTOGRAM VOIDING Date: 12/02/2019 12:23 PM History: Z01.818: Pre-transplant evaluation for kidney transplant Fluoroscopy time: 0.8 minutes TECHNIQUE: The patient was placed on the fluoroscopy table in supine position. AP certified surgical first assistant image was obtained. A Key catheter was [...] the fluoroscopy table in supine position. AP certified surgical first assistant image was obtained. A Key catheter was [...] Rh O NEG 11/09/2019 12:07 PM CDT [facility] Blood BLOOD SPECIMEN / Unknown Lab Venipuncture / Unknown 11/09/2019 10:20 AM CDT 11/09/2019 11:20 AM CDT Alan Davenport MD LAB - BLOOD BANK ORD ERABLES [facility] [address] [place] [address], [facility] [phone] * HLA TYPING DNA LOW RESOLUTION DR,DQ (11/09/2019 10:13 AM CDT) DR DQ Low Resolution DRB1-1 03 (DR17) 12/09/2019 3:33 PM CDT [facility] ([facility]) DR DQ Low Resolution DRB1-2 11 12/09/2019 3:33 PM CDT [facility] ([facility]) DR DQ Low Resolution DQB1-1 02 12/09/2019 3:33 PM CDT [facility] ([facility]) DR DQ Low Resolution DQB1-2 03 (DQ7) 12/09/2019 3:33 PM CDT [facility] ([facility]) DR DQ Low Resolution DRB3-1 01 12/09/2019 3:33 PM CDT [facility] ([facility]) DR DQ Low Resolution DRB3-2 02 12/09/2019 3:33 PM CDT [facility] ([facility]) DR DQ Low Resolution DRB4-1 Negative 12/09/2019 3:33 PM CDT [facility] ([facility]) DR DQ Low Resolution DRB4-2 Negative 12/09/2019 3:33 PM CDT [facility] ([facility]) DR DQ Low Resolution DRB5-1 Negative 12/09/2019 3:33 PM CDT [facility] ([facility]) DR DQ Low Resolution DRB5-2 Negative 12/09/2019 3:33 PM CDT [facility] ([facility]) DR DQ Low Resolution Methodology SSOP 12/09/2019 3:33 PM CDT [facility] ([facility]) Comment DR DQ Low Resolution - 12/09/2019 3:33 PM CDT [facility] ([facility]) DR DQ Low Resolution test date 12/09/2019 12/09/2019 3:33 PM CDT [facility] ([facility]) Comment: This test was developed and its performance characteristics determined by the [facility]. It has not been cleared or approved by the U.S. Food and Drug Administration. The FDA has determined that such clearance or approval is not necessary. This test is used for clinical purposes. It should not be regarded as investigational or for research. This laboratory is certified under the Clinical Laboratory Improvement Amendments of 1988 (CLIA-88) as qualified to perform high complexity clinical laboratory testing. CLIA ID# [id number] Performed at: [facility], [address] [place] [address] Tag And Label Cutter: Juan Diego Martin MD, Blood BLOOD SPECIMEN / Unknown Lab Venipuncture / Unknown 11/09/2019 10:13 AM CDT 11/10/2019 3:47 AM CDT Alan Davenport MD LAB - BLOOD BANK ORD ERABLES [facility] ([facility]) [address] [place] [address], [facility] * HLA TYPING DNA LOW RESOLUTION A,B,C (11/09/2019 10:13 AM CDT) ABC DNA A1 02 12/09/2019 3:34 PM CDT [facility] ([facility]) ABC DNA A2 03 12/09/2019 3:34 PM CDT [facility] ([facility]) ABC DNA B1 08 12/09/2019 3:34 PM CDT [facility] ([facility]) ABC DNA B2 44 12/09/2019 3:34 PM CDT [facility] ([facility]) ABC DNA BW1 6 12/09/2019 3:34 PM CDT [facility] ([facility]) ABC DNA BW2 4 12/09/2019 3:34 PM CDT [facility] ([facility]) ABC DNA C1 02 12/09/2019 3:34 PM CDT [facility] ([facility]) ABC DNA C2 07 12/09/2019 3:34 PM CDT [facility] ([facility]) ABC DNA Methodology SSOP 12/08 3:34 PM CDT [facility] ([facility]) Comment ABC DNA - 0 3:34 PM CDT [facility] ([facility]) ABC DNA Test Date 0 12/09/2019 3:34 PM CDT [facility] ([facility]) Comment: This test was developed and its performance characteristics determined by the [facility]. It has not been cleared or approved by the U.S. Food and Drug Administration. The FDA has determined that such clearance or approval is not necessary. This test is used for clinical purposes. It should not be regarded as investigational or for research. This laboratory is certified under the Clinical Laboratory Improvement Amendments of 1988 (CLIA-88) as qualified to perform high complexity clinical laboratory testing. CLIA ID# [id number] Performed at: [facility], [address] @ [place] [address] Tag And Label Cutter: Juan Diego Martin MD, Blood BLOOD SPECIMEN / Unknown Lab Venipuncture / Unknown 11/09/2019 10:13 AM CDT 11/10/2019 3:47 AM CDT Alan Davenport MD LAB - BLOOD BANK ORD ERABLES Performing Organization Address City/State/[facility] Co de Phone Number [facility] ([facility]) [address] [place] [address] * HLA ANTIBODY SCREEN LUM CLASS 2 ID (11/09/2019 10:13 AM CDT) Pathologist [facility] % PRA 4 12/09/2019 3:33 PM CDT [facility] ([facility]) Class 2 LUM Specificity - 12/09/2019 3:33 PM CDT [facility] ([facility]) Class 2 LUM Test Date 0 12/09/2019 3:33 PM CDT [facility] ([facility]) Comment: This test was developed and its performance characteristics determined by the [facility]. It has not been cleared or approved by the U.S. Food and Drug Administration. The FDA has determined that such clearance or approval is not necessary. This test is used for clinical purposes. It should not be regarded as investigational or for research. This laboratory is certified under the Clinical Laboratory Improvement Amendments of 1988 (CLIA-88) as qualified to perform high complexity clinical laboratory testing. CLIA ID# [id number] Performed at: [facility], [address] @ [place] [address] Tag And Label Cutter: Juan Diego Martin MD, Blood BLOOD SPECIMEN / Unknown Lab Venipuncture / Unknown 11/09/2019 10:13 AM CDT 11/10/2019 3:40 AM CDT Alan Davenport MD LAB - BLOOD BANK ORD [facility] Performing Organization Address [facility] Co de Phone Number [facility] ([facility]) [address] [place] [address], [place] * HLA ANTIBODY SCREEN LUM CLASS 1 ID (11/09/2019 10:13 AM CDT) % PRA 0 12/09/2019 3:33 PM CDT [facility] ([facility]) Class 1 LUM Specificity - 12/09/2019 3:33 PM CDT [facility] ([facility]) Class 1 LUM Test Date 0 12/09/2019 3:33 PM CDT [facility] ([facility]) Comment: This test was developed and its performance characteristics determined by the [facility]. It has not been cleared or approved by the U.S. Food and Drug Administration. The FDA has determined that such clearance or approval is not necessary. This test is used for clinical purposes. It should not be regarded as investigational or for research. This laboratory is certified under the Clinical Laboratory Improvement Amendments of 1988 (CLIA-88) as qualified to perform high complexity clinical laboratory testing. CLIA ID# [id number] Performed at: [facility], [address] @ [place] [address] Tag And Label Cutter: Juan Diego Martin MD, Blood BLOOD SPECIMEN / Unknown Lab Venipuncture / Unknown 11/09/2019 10:13 AM CDT 11/10/2019 3:40 AM CDT Alan Davenport MD LAB - BLOOD BANK ORD ERABLES [facility] ([facility]) [address] [place] [address], [place] * HIV-1 HIV-2 ANTIGEN/ANTIBODY (11/09/2019 10:13 AM CDT) Pathologist [facility] HIV Antigen/Antibod y 1 & 2 Non-reacti ve Non-react sylvie 11/09/2019 12:26 PM CDT [facility] Comment:Neither HIV-1 p24 An tigen nor HIV-1/HIV-2 Antibodies are detected. Blood BLOOD SPECIMEN / Unknown Lab Venipuncture / Unknown 11/09/2019 10:13 AM CDT 11/09/2019 11:10 AM CDT Alan Davenport MD LAB - HEMATOLOGY ORD ERABLES [address] [address], [facility] [phone] * RUBELLA ANTIBODY IGG TITER (11/09/2019 10:13 AM CDT) [facility] Rubella Antibody IgG >330.0 IU/mL 11/11/2019 11:06 AM CDT [employer] ([facility]) Comment: INTERPRETIVE INFORMATION: Rubella Antibody, IgG Less than 9 IU/mL ........ Not Detected 9 - 9.9 IU/mL ............ Indeterminate-Repeat testing in 10-14 days may be helpful. 10 IU/mL or Greater ...... Detected The best evidence for current infection is a significant change on two appropriately timed specimens, where both tests are done in the same laboratory at the same time. The magnitude of the measured result is not indicative of the amount of antibody present. Performed By: [employer] [address] [place] [address] Surgery Specialist: Kaur Blankenship MD Blood BLOOD SPECIMEN / Unknown Lab Venipuncture / Unknown 11/09/2019 10:13 AM CDT 11/09/2019 11:10 AM CDT Alan Davenport MD LAB - SEROLOGY ORDER MICHELLE Performing Organization Address City/[facility]/ZIP Co de Phone Number [employer] [facility]) [address] [place] [address] * RUBEOLA ANTIBODY IGG (11/09/2019 10:13 AM CDT) Measles (Rubeola) Antibody IgG >300.0 AU/mL 11/11/2019 12:20 PM CDT [employer] ([facility]) Comment: INTERPRETIVE INFORMATION: Measles (Rubeola) Antibody, IgG 13.4 AU/mL or less........ Negative - No significant level of detectable measles (rubeola) IgG antibody. 13.5-16.4 AU/mL .......... Equivocal - Repeat testing in 10-14 days may be helpful. 16.5 AU/mL or greater .... Positive - IgG antibody to measles (rubeola) detected which may indicate a current or past exposure/immunization to measles (rubeola). The best evidence for current infection is a significant change on two appropriately timed specimens, where both tests are done in the same laboratory at the same time. Performed By: [facility] [address] [place] [address] Surgery Specialist: Kaur Blankenship MD Blood BLOOD SPECIMEN / Unknown Lab Venipuncture / Unknown 11/09/2019 10:13 AM CDT 11/09/2019 11:11 AM CDT Alan Davenport MD LAB - CHEMISTRY PK ZENG [facility] Organization Address City/State/ZIP Co de Phone Number [employer] [facility]) [address] [place] [address], [facility] * MUMPS ANTIBODY IGG (11/09/2019 10:13 AM CDT) Mumps Virus Antibody IgG >300.0 AU/mL 11/11/2019 11:57 AM CDT [employer] ([facility]) Comment: INTERPRETIVE INFORMATION: Mumps Ab, IgG by PAOLA 8.9 AU/mL or less .... Negative - No significant level of detectable IgG mumps virus antibody 9.0-10.9 AU/mL ....... Equivocal - Repeat testing in 10-14 days may be helpful 11.0 AU/mL or greater: Positive - IgG antibody to mumps virus detected, which may indicate a current or past exposure/ immunization to mumps virus. The best evidence for current infection is a significant change on two appropriately timed specimens, where both tests are done in the same laboratory at the same time. Performed By: [employer] [address] [place] [address] Surgery Specialist: Kaur Blankenship MD Blood BLOOD SPECIMEN / Unknown Lab Venipuncture / Unknown 11/09/2019 10:13 AM CDT 11/09/2019 11:10 AM CDT Alan Davenport MD LAB - CHEMISTRY PK ZENG Performing Organization Address [facility] de Phone Number [facility] [employer] ([facility]) [address] [place] [address] * VARICELLA ZOSTER ANTIBODY IGG (11/09/2019 10:13 AM CDT) [facility] Varicella zoster Virus Antibody IgG 1243.0 IV 11/11/2019 12:55 PM CDT [facility] ([facility]) Comment: INTERPRETIVE INFORMATION: VZV Ab, IgG 134.9 IV or less ....... Negative - No significant level of detectable IgG varicella-zoster antibody. 135.0 - 164.9 IV ....... Equivocal - Repeat testing in 10-14 days may be helpful. 165.0 IV or greater .... Positive - IgG antibody to varicella-zoster detected, which may indicate a current or past varicella-zoster infection. The best evidence for current infection is a significant change on two appropriately timed specimens, where both tests are done in the same laboratory at the same time. Performed By: [employer] [address] [place] [address] Surgery Specialist: Kaur Blankenship MD Blood BLOOD SPECIMEN / Unknown Lab Venipuncture / Unknown 11/09/2019 10:13 AM CDT 11/09/2019 11:11 AM CDT Alan Davenport MD LAB - CHEMISTRY PK ZENG Performing Organization Address [facility] de Phone Number [facility] ([facility]) [address] [place] [address] * (ABNORMAL) CHARLENE-GAONA VIRUS ANTIBODY TO VCA IGG (11/09/2019 10:13 AM CDT) [facility] Charlene-Gaona Virus Antibody IgG Viral Capsid Antigen 277.0(H) 0.0 - 21.9 U/mL 11/11/2019 12:37 PM CDT [facility] [employer] ([facility]) Comment: INTERPRETIVE INFORMATION: Charlene-Gaona Virus Antibody to Viral Capsid Antigen, IgG 17.9 U/mL or less.......Not Detected 18.0-21.9 U/mL..........Indeterminate - Repeat testing in 10-14 days may be helpful. 22.0 U/mL or greater....Detected Performed By: [facility] [address] [place] [address] Surgery Specialist: Kaur Blankenship MD Blood BLOOD SPECIMEN / Unknown Lab Venipuncture / Unknown 11/09/2019 10:13 AM CDT 11/09/2019 11:12 AM CDT Alan Davenport MD LAB - CHEMISTRY PK ZENG [facility] [employer] [facility]) [address] [place] [address] * TYPE + SCREEN PANEL (11/09/2019 10:13 AM CDT) Antibody Screen NEG 0 12:07 PM CDT [facility] ABO Rh O NEG 11/09/2019 12:07 PM CDT [facility] Blood Bank BLOOD SPECIMEN / Unknown Lab Venipuncture / Unknown 11/09/2019 10:13 AM CDT 11/09/2019 11:20 AM CDT Alan Davenport MD LAB - BLOOD BANK ORD ERABLES [facility] [address] [place] [address], [facility] [phone] * CT ABDOMEN AND PELVIS NON IV [...] Enlarged prostate. Dictated by Agusto Bradley MD (workforce development vice president). I, Dr. Terry DE LEON M.D. have personally reviewed and interpreted this examination/study. This report was electronically signed by Terry DE LEON M.D. on 11/09/2019 3:11 PM . Narrative 11/09/2019 3:11 [...] Enlarged prostate. Dictated by Agusto Bradley MD (workforce development vice president). I, Dr. Terry DE LEON M.D. have personally reviewed and interpretedthis examination/study. This report was electronically signed by Terry DE LEON M.D. on 11/09/2019 3:11 PM . Alan Davenport MD CT ORDERABLES * XR PANOREX (11/09/2019 9:47 AM CDT) Anatomical Region Laterality Modality Head Radiographic Pastora ging 11/09/2019 10:3 9 AM CDT Impressions 11/10/2019 9:54 AM CDT IMPRESSION: No periapical abscess. Dictated by Felipe Younger MD (workforce development vice president). Dr. ADRIANA Leigh have personally reviewed and interpreted this examination/study. This report was electronically signed by ADRIANA RODRIGUEZ on 11/10/2019 9:54 AM . Narrative 11/10/2019 9:54 [...] periapical abscess. Dictated by Felipe Younger MD (workforce development vice president). Dr. ADRIANA Leigh have personally reviewed and [...] RIGHT 3VW OR MORE (03/05/2018 10:25 AM BOOKER) Anatomical Region Laterality Modality Wrist / Hand Radiographic Pastora ging 03/05/2018 11:3 0 AM BOOKER Impressions 03/05/2018 12:17 PM BOOKER IMPRESSION: 1. No acute bony abnormalities. No significant joint space narrowing. 2. Suggestion of mild diffuse soft tissue swelling of the third digit. Dictated by Lizandro Diaz MD (workforce development vice president). Dr. Terry Leigh M.D. have personally reviewed and interpreted this examination/study. This report was electronically signed by Terry DE LEON M.D. on 03/05/2018 12:17 PM . Narrative 03/05/2018 12:17 PM BOOKER EXAMINATION: XR HAND RIGHT 3VW OR MORE [...] third digit. Dictated by Lizandro Diaz MD (workforce development vice president). Dr. Terry Leigh M.D. have personally reviewed and interpretedthis examination/study. This report was electronically signed by Terry DE LEON M.D. on 03/05/2018 12:17 PM . Aracely Rock PA-C DIAGNOSTIC IMAG ING ORDERABLES * XR KNEE 3 VW RIGHT (03/28/2017 8:14 AM BOOKER) Anatomical Region Laterality Modality Lower Extremity Computed Radiogr aphy Narrative 03/28/2017 1:03 PM BOOKER Nadja Jenkins, RT(R) 03/28/2017 1:03 PM See progress notes for results Marilou Rodríguez PA-C DIAGNOSTIC IM AGING ORDERABLES Care Teams Security Solutions Engineer Relationship Specialty Start Date End Date Jeff Strickland MD [address] [place] [address] PCP - General 03/05/18 [place] [id number] [facility]AMED [facility] [address] [place] [address] Orthopedic Surgery 03/28/17
--- OUTSIDE RECORDS SUMMARY | 2024-03-28 14:32 | XMS_ITS | Patient Health Record ---
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) Active confirmed Problem Chronic pain syndrome (G89.4) Active confirmed Chronic joan n syndrome (573923648) Problem Primary osteoarthritis, 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) Active confirmed Localized, primary osteoarthritis of the shoulder region (020460415) Problem Pain in left hip (M25.552) Active confirmed Pain of left hi p joint (finding) (345699067071143) Problem Spondylosis without myelopathy or radiculopathy, lumbar region (M47.816) Active confirmed Lumbosacral spondylosis without myelopathy (37443714) Problem Other intervertebral disc degeneration, lumbar region (M51.36) Active confirmed Degeneration of lumbar intervertebral disc (75847229) Problem Radiculopathy, lumbar region (M54.16) Active confirmed Lumbar radiculopathy (687607413) Problem Radiculopathy, lumbosacral region (M54.17) Active confirmed Lumbosacral radiculopathy (0993723) Problem Osseous stenosis of neural canal of lumbar region (M99.33) Active confirmed Spinal stenosis of lumbar region (78885032) Problem residential (current) use of anticoagulants (Z79.01) Active confirmed Long-term curre nt use of anticoagulant (743056879) Problem Other intervertebral disc degeneration, lumbar region [...] Location Date Provider Diagnosis [facility] [address] [place] [address] 05/08/2023 Sergio Stynowick Radiculopathy, lumba r region M54.16 ; Other intervertebral disc degeneration, lumbar region M51.36 ; 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 ; Spondylosis without myelopathy or radiculopathy, lumbar region M47.816 and residential (current) use of anticoagulants Z79.01 [facility] [address] [place] [address] 09/29/2023 Sergio Stynowick Radiculopathy, lumba r region M54.16 ; Other chest pain R07.89 ; Other intervertebral disc degeneration, lumbar region M51.36 ; 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 ; Spondylosis without myelopathy or radiculopathy, lumbar region M47.816 and terminal superintendent (current) use of anticoagulants Z79.01 [facility] [address] [place] [address] 01/12/2024 Sergio Stynowick Radiculopathy, lumba r region M54.16 ; Radiculopathy, lumbosacral region M54.17 ; Other chest pain R07.89 ; Other intervertebral disc degeneration, lumbar region M51.36 ; 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 ; Spondylosis without myelopathy or radiculopathy, lumbar region M47.816 and residential (current) use of anticoagulants Z79.01 [facility] [address] [place] [address] 01/19/2024 Sergio Stynowick Radiculopathy, lumba r region M54.16 ; Other intervertebral disc degeneration, lumbar region with discogenic back pain and lower extremity pain M51.362 and 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 [facility] [address] [place] [address] 02/03/2024 Sergio Stynowick Other chest pain R07.89 ; Pain in left knee M25.562 ; Radiculopathy, lumbar region M54.16 ; Other intervertebral disc degeneration, lumbar region M51.36 ; 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 ; Spondylosis without myelopathy or radiculopathy, lumbar region M47.816 and terminal superintendent (current) use of anticoagulants Z79.01 [facility] [address] [place] [address] 03/03/2024 Sergio Stynowick Pain in left knee M25.562 ; Primary osteoarthritis, unspecified shoulder M19.019 ; Other chest pain R07.89 ; Radiculopathy, lumbar region M54.16 ; Other intervertebral disc degeneration, lumbar region M51.36 ; 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 ; Spondylosis without myelopathy or radiculopathy, lumbar region M47.816 ; residential (current) use of anticoagulants Z79.01 ; Pain in right shoulder M25.511 and Pain in left shoulder M25.512 [facility] [address] [place] [address] 03/08/2024 Sergio Stynowick Primary osteoarthritis, unspecified shoulder [...] of lumbar region (ICD-10 - M99.33) 05/08/2023 terminal superintendent (current) use of anticoagulants (ICD-10 - Z79.01) 09/29/2023 Spondylosis without myelopathy or radiculopathy, lumbar region (ICD-10 - M47.816) 09/29/2023 terminal superintendent (current) use of anticoagulants (ICD-10 - Z79.01) 01/12/2024 Spondylosis without myelopathy or radiculopathy, lumbar region (ICD-10 - M47.816) 02/03/2024 Spondylosis without myelopathy or radiculopathy, lumbar region (ICD-10 - M47.816) 03/03/2024 Osseous stenosis of neural canal of lumbar region (ICD-10 - M99.33) 01/12/2024 residential (current) use of anticoagulants (ICD-10 - Z79.01) The patient was instructed to discontinue aspirin for 6 days prior to the procedure. I made the patient aware that he will be at an increased risk for a thromboembolic event during this time and he is willing to accept this risk. The patient was instructed to notify his primary care physician and/or quotation clerk to obtain clearance prior to discontinuing this medication. 02/03/2024 terminal superintendent (current) use of anticoagulants (ICD-10 - Z79.01) 03/03/2024 Spondylosis without myelopathy or radiculopathy, lumbar region (ICD-10 - M47.816) 03/03/2024 residential (current) use of anticoagulants (ICD-10 - Z79.01) [...] Coverage End Date [employer] MEDICARE [address] [facility] [place] [address] [id number] GRACE INTERIANO Self - patient is the insured MEDICAL (GENERAL) HISTORY Medical History History ICD Code Hypertension Hypothyroidism Diabetes type 2 Gastroesophageal reflux disease (GERD) Renal cell cancer Chronic kidney disease stage 4 Sleep apnea CHF Surgical History Surgery Date(Month/Year) Right total knee arthroplasty 08/2015 Cholecystectomy Hernia repair 2019 Cardiac stent 07/2020
--- OUTSIDE RECORDS SUMMARY | 2024-03-28 14:32 | XMS_ITS | Encounter Summary ---
Author Organization [facility] Address [facility] [place] [address] Care Team Providers Care Sales Representative Meats Name Role Phone Deandre Bojorquez MD Unavailable [phone] Jeff Strickland MD Primary Care Provider [phone] Encounter Details Date Type Department Care Team (Late st Contact Info) Description 05/29/2023 Lab Requisition [facility] [address] [place] [phone] Alan Davenport MD [facility] [place] [address] Social History Tobacco Use Types Packs/Day Years [...] CDT Appointment [facility] MRI [address] [place] [address] Thomas Mendoza MD [address] [facility] 2L [place] [address] 08/04/2024 1:30 PM CDT Office Visit [facility] - Urology [address] [place] [address] Thomas Mendoza MD [address] [facility] 2L [place] [address] documented as of this encounter Procedures Procedure Name Priority Date/Time Associated Diagnosis Comments HOLD HLA SPECIMEN Routine 05/21/2023 9:2 4 AM CDT documented in this encounter Results * HOLD HLA SPECIMEN (05/21/2023 9:24 AM CDT) Hold HLA Specimen 05/29/2023 10:30 AM CDT [facility] ([employer]) Comment:The Hold HLA specime n has been received into the lab and will be held for 5 years at 4 degrees. Blood BLOOD SPECIMEN / Unknown 05/21/2023 9:24 AM CDT 05/29/2023 9:24 AM CDT Alan Davenport MD LAB - BLOOD BANK ORD ERABLES [facility] ([employer]) [address] [place], [place] [id number] [place] [address] documented in this encounter Visit Diagnoses Not on filedocumented in this encounter Care Teams Sales Representative Meats Relationship Specialty Start Date End Date Jeff Strickland MD [address] [place] [address] PCP - General 03/05/18 [place] [address] [address] Orthopedic Surgery 03/28/17 documented as of this encounter
--- OUTSIDE RECORDS SUMMARY | 2024-03-28 14:33 | XMS_ITS | Clinical Summary ---
Author Organization [facility] Address [address], [place] [address] Phone Care Team Providers Care Machine Operator Hop Worker Name Role Phone Jeff Strickland MD Primary Care Provider [phone] Allergies No known active allergies Medications Medication [...] 3 11/29/2019 Active Continuous Blood Gluc Director Of Primary Care (FreeStyle Em Rogers) device 1 each daily 12/01/2019 Active Continuous Blood Gluc Sensor (FreeStyle Em Sensor System) misc 1 each once every 2 weeks 12/01/2019 Active Lancets (OneTouch Delica Plus [id number]) misc OneTouch Delica Plus Lancet 33 gauge [...] 11/10/2019 Overview (12/17/2019): Kendall Carl 1955 Referring Retort Cooler: Alan Mccall Dialysis Info: NOD GFR 13 Type: Time: (Not currently on dialysis) days Blood Type: O NEG Body mass index is 37.36 kg/m . ALERTS Leather Fitter: needs to establish Past Medical History: Diagnosis Date Arthropathy RA. Dr Strickland manages. CHF (congestive heart failure) 2 yrs ago Ocular Pathologist is Dr. Beecrra in [place]. CKD (chronic kidney disease), stage V Community acquired pneumonia 2018 [facility] hospitalized. Diabetes mellitus 20 years. Lantus pen. Esophageal reflux takes med Hypercholesteremia 5-10 yrs meds Hypertension takes meds Hypothyroidism meds 20 years Kidney stones 5-6 years ago had 2 in the same year. Malignancy right kidney 2012 Obstructive sleep apnea 3 years. [facility]. Angela remember doctors name Renal cell carcinoma [address] Pruett surgeon. followed up every 6 [...] file Gets together: Not on file Attends restoration service: Not on file Active member of [...] at 65%. C: 11/10/2018 CXR: 11/09/2019 FINDINGS/IMPRESSION: There is no [...] Impression: It is the impression of this licensed master social worker that Kendall Carl has several positive factors for Kidney transplant candidacy from a psychosocial perspective. Patient appears to have appropriate knowledge of illness. Patient has sufficient insurance coverage and stable financial situation for post transplant needs. No concerns regarding substance abuse, legal issues, or mental health needs. Patient has adequate support system and appropriate discharge plan. Plan: break out worker to provide supportive services as needed. Patient appears to be a reasonable candidate for transplant from a psychosocial perspective. -Post transplant arrangement forms are needed prior to being listed. -Updated toxicology results needed, per protocol Psychiatric Consult Recommended: No Transplant Publication Designer: Joy Tam LCSW RD: 11/09/2019 BMI= 36.2, [...] use my fitness pal or my food track coach) - Consume no more than [...] nephrectomy. 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 [id number] Immunizations Name Administration Dates Next Due Influenza [...] 84 10/18/2019 3:10 PM CDT Temperature 35.4 C (95.8 F) 10/18/2019 3:10 PM CDT Respiratory Rate - - Oxygen Saturation - [...] (#1) 2023 9, 04/10/2016, 04/09/2016 Care Teams Machine Operator Hop Worker Relationship Specialty Start Date End Date Jeff Strickland MD [address] [place] [address] PCP - General Internal Medicine 07/15/18
--- OUTSIDE RECORDS SUMMARY | 2024-03-28 14:33 | XMS_ITS | Encounter Summary ---
Author Organization [facility] Address [facility] [place] [address] Care Team Providers Care Electrician Elevator Maintenance Name Role Phone Deandre Bojorquez MD Unavailable [phone] Jeff Strickland MD Primary Care Provider [phone] Encounter Details Date Type Department Care Team (Late st Contact Info) Description 03/12/2024 Lab Requisition [facility] [address] [place] [phone] Alan Davenport MD [facility] [place] [address] Social History Tobacco Use Types Packs/Day Years [...] Description 08/04/2024 11:30 AM CDT Appointment [facility] MRI [address] [place] [address] Thomas Mendoza MD [address] [facility] 2L [place] [address] 08/04/2024 1:30 PM CDT Office Visit [facility] - Urology [address] [place] [address] Thomas Mendoza MD [address] [facility] 2L [place] [address] documented as of this encounter Procedures Procedure Name Priority Date/Time Associated Diagnosis Comments HOLD HLA SPECIMEN Routine 03/05/2024 1:4 0 PM PAPER CONE MAKER documented in this encounter Results * HOLD HLA SPECIMEN (03/05/2024 1:40 PM PAPER CONE MAKER) Hold HLA Specimen 03/12/2024 3:00 PM PAPER CONE MAKER [facility] ([facility]) Comment:The Hold HLA specime n has been received into the lab and will be held for 5 years at 4 degrees. Blood BLOOD SPECIMEN / Unknown 03/05/2024 1:40 PM PAPER CONE MAKER 03/12/2024 1:40 PM PAPER CONE MAKER Alan Davenport MD LAB - BLOOD BANK ORD ERABLES [facility] ([employer]) [address] documented in this encounter Visit Diagnoses Not on filedocumented in this encounter Care Teams Electrician Elevator Maintenance Relationship Specialty Start Date End Date Jeff Strickland MD [address] [place] [address] PCP - General 03/05/18 [place] [address] [facility] [address] [place] [address] Orthopedic Surgery 03/28/17 documented as of this encounter
--- OUTSIDE RECORDS SUMMARY | 2024-03-28 14:33 | XMS_ITS | Clinical Summary ---
Author Organization [facility] Address [address] [place] [address] Phone Care Team Providers Care Shipping And Receiving Clerk Name Role Phone Jeff Strickland MD Primary Care Provider [phone] Allergies No known active allergies Medications pantoprazole [...] tablet Take 112 mcg by mouth daily panel sewer. Active aspirin (ANGLELA) 325 mg tablet Take 325 mg by mouth daily. Active Vit C-Vit F-Cztugo-LuKd-L utein (PRESERVISION) 226 mg-200 unit -5 mg-0.8 [...] Department Care Team Description 03/03/2024 2:05 PM ASSISTANT INFANT TEACHER Ancillary Procedure [facility] [address] [place] [address] Sergio Rivera MD Pain in [...] Comments Blood Pressure 167/77 02/04/2019 9:16 AM ASSISTANT INFANT TEACHER Pulse 64 02/04/2019 9:16 AM ASSISTANT INFANT TEACHER Temperature 36.5 C (97.7 F) 02/04/2019 9:16 AM ASSISTANT INFANT TEACHER Respiratory Rate 16 02/04/2019 9:16 AM ASSISTANT INFANT TEACHER Oxygen Saturation 97% 02/04/2019 9:16 AM ASSISTANT INFANT TEACHER Inhaled Oxygen Concentration - - Weight 113.4 kg (250 lb) 02/04/2019 9:16 AM ASSISTANT INFANT TEACHER Height 175.3 cm (5' 9 ) 02/04/2019 9:16 AM ASSISTANT INFANT TEACHER Body Mass Index 36.92 02/04/2019 9:16 AM ASSISTANT INFANT TEACHER Plan of Treatment Health Maintenance Due Date [...] 01/17/2020, 01/17/2020, Additional history exists COVID-19 Vaccine ( - 2023-2 5 season) 2023 05/05/2020, 04/20/2020, 03/20/2020 DIABETES HBA1C Q 6 MONTHS 05/06/20242023, 03/25/2023, 11/30/2022, Additional history exists DIABETES ANNUAL RETINAL EXAM 12/09/2024 12/10/2023, 10/08/2023 DTAP/TDAP/TD VACCINES (3 - T d or Tdap) 04/10/2026 04/10/2016, 04/09/2016 Procedures Procedure Name Priority Date/Time Associated Diagnosis Comments XR SHOULDER 2+ VW BILAT Routine 03/03/2024 2:26 PM ASSISTANT INFANT TEACHER Pain in shoulder region, left Pain in shoulder region, right from Last 3 Months Results * XR SHOULDER 2+ VW BILAT (03/03/2024 2:26 PM ASSISTANT INFANT TEACHER) Anatomical Region Laterality Modality Upper Extremity Computed Radiogr aphy 03/03/2024 2:27 PM ASSISTANT INFANT TEACHER Impressions 03/03/2024 2:34 PM ASSISTANT INFANT TEACHER IMPRESSION: 1. 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 Narrative 03/03/2024 2:34 PM ASSISTANT INFANT TEACHER EXAM: XR SHOULDER 2+ VW BILAT DATE: [...] left chest reveal no acute pulmonary findings. Procedure Note Shawn Pandya MD - 03/03/2024 [...] Final Result from Last 3 Months Insurance [employer] MEDICARE SUPPLEMENT [address] [place], [place] [id number] [facility] [place] [address] [place] [address] BLUE ACCESS/TRUE BLUE PPO Care Teams Shipping And Receiving Clerk Relationship Specialty Start Date End Date Jeff Strickland MD [address] [facility] [address] [place] [address] PCP - General Family Practice 01/01/19
--- OUTSIDE RECORDS SUMMARY | 2024-03-28 14:33 | XMS_ITS ---
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 John's, Haxt[place]'s and Gaenslen's are positive bilaterally. There is [...]
--- OUTSIDE RECORDS SUMMARY | 2024-03-28 14:33 | XMS_ITS ---
Author Organization [facility] Address [address] [place] [address] [place] [address] Care Team Providers Care Open Hearth Furnace Laborer Name Role Phone DONNIE WOOD MD Primary Care Provider Lance Sergio Trujillo Unavailable [phone] ALLERGIES No Known Allergies REASON FOR VISIT [...] Localized, primary osteoarthritis of the shoulder region (345854228) VITAL SIGNS Blood pressure systolic 112 mm Hg 03/03/19 25 Blood pressure diastolic 62 mm Hg 025 Heart Rate 59 /min 03/03/2024 Respiratory Rate 18 /min 03/03/2024 Height 5 ft 9 in in 03/03/2024 Weight 229 lbs 03/03/2024 BMI 33.81 kg/m2 03/03/2024 Encounters Encounter Location Date Provider Diagnosis [facility] [address] [place] [address] 03/03/2024 Sergio Stynowick Pain in left knee M25.562 ; Primary osteoarthritis, unspecified shoulder M19.019 ; Other chest pain R07.89 ; Radiculopathy, lumbar region M54.16 ; Other intervertebral disc degeneration, lumbar region M51.36 ; 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 John's, Townsend's and Gaenslen's are positive bilaterally. There is [...] and Follow-up: Follow-up Plan doclana wendy:: Yes [facility] Quality 2020: MIPS Documented:: Compliant
--- OUTSIDE RECORDS SUMMARY | 2024-03-28 14:33 | XMS_ITS ---
Author Organization [facility] Address [address] [place] [address] [place] [address] Care Team Providers Care Fertilizing Machine Operator Name Role Phone DONNIE WOOD MD Primary Care Provider Robba Sergio Trujillo Unavailable [phone] REASON FOR VISIT BILAT SHOULDER JOINT INJECTION (NEED XRAY - BEING DONE AT [facility]) MEDICATIONS Medication SIG (Take, Route, Frequency, [...] Location Date Provider Diagnosis [facility] [address] [place] [address] 03/08/2024 Sergio Rivera Primary osteoarthritis, unspecified shoulder [...] discharged home in good condition with a straight truck driver. X-ray time: 6 seconds Progress [...] patient's typical axial low back pain. John's, [place]'s and Gaenslen's are positive bilaterally. There is [...] Plan documen wendy:: Yes [facility] Quality 2020: [facility] Documented:: Compliant
--- OUTSIDE RECORDS SUMMARY | 2024-03-28 14:33 | XMS_ITS | Clinical Summary ---
Author Organization [facility] Address [facility] [place] [address] Care Team Providers Care Senior Sql Server Dba Name Role Phone Jeff Strickland MD Primary Care Provider [phone] Allergies Active Allergy Reactions Criticality Noted Date [...] hours as needed for Pain or Fever. 02/10/202 4 Active atorvastatin (LIPITOR) 80 MG tablet [...] by mouth nightly at bedtime. Active Multiple Vitamins-Pinhook als (PRESERVISION AREDS 2 OR) Take 1 [...] drink = 0.6 oz pur e alcohol) [facility] Utilities Answer Date Recorded In the past [...] place to sleep or slept in a jail (including now)? No 05/02/2023 Sex and Gender Information Value Date Recorded Sex Assigned at Not on file Legal Sex Male 10:10 AM EDUCATIONAL/DEVELOPMENT ASSISTANT Gender Identity Not on file Sexual Orientation Not on file Last Filed Vital Signs Vital Sign Reading Time Taken Comments Blood Pressure 165/90 05/05/2023 4:39 PM CDT Pulse 76 05/05/2023 4:39 PM CDT Temperature 36.2 C (97.2 F) 05/05/2023 4:39 PM CDT Respiratory Rate 14 05/05/2023 4:39 PM CDT [...] PPSV23 or PCV20) 08/09/2021 08/09/2020 COVID-19 Vaccine (5 - season) 2023 05/05/2020, 04/20/2020, 04/15/2020, Additional history exists Influenza Adult (#1) 2023 05/03/2023, 10/29/2020, 01/17/2020, Additional history exists DTaP, Tdap and Td Vaccines (3 - Td or Tdap) 04/10/2026 04/10/2016, 04/09/2016 Hepatitis C Completed 03/25/2023, 03/25/2023 Meningococcal B Vaccine Aged Out No l onger eligible based on patient's age to complete this topic Meningococcal Vaccine Aged Out No reilly eusebia [...] discharge from hospital Lifestyle No Alice Rizzo, [facility] Insurance [employer] Advance Directives * Full Code (Latest Code Status on File) Date Activated Date Inactivated Comments 05/02/2023 12:46 AM 05/03/2023 12:26 PM Care Teams Senior Sql Server Dba Relationship Specialty Start Date End Date Jeff Strickland MD [address] [place] [address] PCP - General FAMILY PRACTICE 02/22/23
--- OUTSIDE RECORDS SUMMARY | 2024-03-28 14:35 | XMS_ITS | Continuity of Care Document ---
Author Organization [facility] [employer] [place] Address [address] [facility] [address] [place] [address] Phone Care Team Providers Care Terminal Supervisor Name Role Phone Olu Payan Unavailable Unavailable [...] Diagnoses Date Provider Providers Copied on Encounter [facility], [place], [place], [id number], tel:[phone] [place] No Information 4 Gladis Olu. [address] [place] [address], [address], [place], [place], [facility], . tel: [phone] [address] [place] [address], [place], [place], [id number], tel:[phone] [place] No Information 4 Genoveva Mcdonald. . Referring Provider: Jeff Strickland [address] [place] [address] [address], [place], [place], [facility]. tel:[phone] [place] [address], [place], [place], [id number], tel:[phone] [place] No Information 4 Gladis Olu. [address] [place] [address], [address], [place], [place], [facility], . tel: [phone] Referring Provider: Yanira Chin [facility] [address], [place], [place], [facility]. tel:[phone] [place] [address], [place], [place], [id number], tel:[phone] [place] No Information 4 Gladis Raines. [address] [place] [address], [address], [place], [place], [facility], . tel: [phone] Referring Provider: Yanira Chin [facility] [address], [place], [address]. tel:[phone], [id number], tel:[phone] [place] No Information 4 Jacinto Fairchild. . Referring Provider: Yanira Chin [facility] [address], [place], [address]. tel:[phone] [address], [place], [place], [id number], [place] tel:[phone] [place] No Information 4 Jacinto Fairchild. . Referring Provider: Jeff Strickland [address] [place] [address] [address], [place], [place], [facility]. tel:[phone], [id number], tel:[phone] [place] No Information 4 Genoveva Mcdonald. . Referring Provider: Jeff Strickland [address] [place] [address] [address], [place], [place], [facility]. tel:[phone], [id number], tel:[phone] [place] No Information 4 Gladis Raines. [address] [facility], [address], [place], [facility], . tel: [phone] Referring Provider: Jeff Strickland [address] [place] [address] [address], [place], [place], [facility]. tel:[phone], [id number], tel:[phone] [place] No Information 0 4 Genoveva Mcdonald. . Referring Provider: Jeff Strickland [address] [place] [address] [address], [place], [place], [facility]. tel:[phone] [address], [place], [id number], [place] tel:[phone] [place] No Information 0 4 Gladis Raines. [address] [facility], [address], [place], [place], [facility], . tel: [phone] Referring Provider: Jeff Strickland [address] [place] [address] [address], [place], [place], [facility]. tel:[phone] Family History Family Member Type Diagnosis Age At Onset No Information Payers Payer name Insurance type Covered republican ID Diego suarez(ernesto Hadley [id number] Social History Type Description Quantity Date Captured Comments Sex Male Smoking Status No Information Chief Complaint And Reason For Visit No Information Reason For Referral Reason For Referral No Information Plan Of Treatment Date Type Action Status Referral Ordered: Clinical Psychology (related to Depression) ordered Referral Ordered: Depression: Depression management program timeframe: 1 Day. (related to Depression) ordered Referral Ordered: Referrals: Specialist. Evaluate and Treat (related to Adjustment disorder with depressed mood) ordered History Of Present Illness Encounter Date Complaint History Of Prese nt Illness No Information Functional Status Date Functional Assessmen t No Information Instructions Date Instruction Additional Infor mation No Information Assessments Type Assessment Date No Information Patient Care Teams Name Effective Dates (start - stop) Status Members No Information
[2024-03-28 14:52] VITALS: BP 129/59; PULSE 56; RESP 14; TEMP 37.2; O2SAT 100
[2024-03-28 15:28] VITALS: BP 124/57; PULSE 59; RESP 16; O2SAT 97
--- OUTSIDE RECORDS SUMMARY | 2024-03-28 15:31 | XMS_ITS | Encounter Summary ---
Author Organization [facility] Address [facility] [place] [address] Care Team Providers Care Truck Driver'S Offsider Name Role Phone Deandre Bojorquez MD Unavailable [phone] Jeff Strickland MD Primary Care Provider [phone] Encounter Details Date Type Department Care Team (Late st Contact Info) Description 07/31/2023 Lab Requisition [facility] MAIN LAB [address] [place] [id number] Alan Davenport MD [facility] [address] Social History Tobacco Use Types Packs/Day Years [...] Info) Description 08/04/2024 11:30 AM CDT Appointment [facility] MRI [address] [place] [address] Thomas Mendoza MD 12[address] [facility] 2L [place] [address] 08/04/2024 1:30 PM CDT Office Visit [facility] - Urology [address] [place] [address] Thomas Mendoza MD 12[address] [facility] 2L [place] [address] documented as of this encounter Procedures Procedure Name Priority Date/Time Associated Diagnosis Comments HOLD HLA SPECIMEN Routine 07/23/2023 2:0 5 PM CDT documented in this encounter Results * HOLD HLA SPECIMEN (07/23/2023 2:05 PM CDT) Hold HLA Specimen 07/31/2023 3:32 PM CDT [facility] ([facility]) Comment:The Hold HLA specime n has been received into the lab and will be held for 5 years at 4 degrees. Blood BLOOD SPECIMEN / Unknown 07/23/2023 2:05 PM CDT 07/31/2023 2:06 PM CDT Alan Davenport MD LAB - BLOOD BANK ORD ERABLES [facility] ([facility]) [address] [place], [place] [address] [place] [address] documented in this encounter Visit Diagnoses Not on filedocumented in this encounter Care Teams Truck Driver'S Offsider Relationship Specialty Start Date End Date Jeff Strickland MD [address] [place] [address] PCP - General 03/05/18 [place] [id number] [address] Orthopedic Surgery 03/28/17 documented as of this encounter
--- OUTSIDE RECORDS SUMMARY | 2024-03-28 15:31 | XMS_ITS | Encounter Summary ---
Author Organization [facility] Address [facility] [place] [address] Care Team Providers Care Clinical Engineering Manager Name Role Phone Deandre Bojorquez MD Unavailable [phone] Jeff Strickland MD Primary Care Provider [phone] Encounter Details Date Type Department Care Team (Late st Contact Info) Description 02/04/2024 Lab Requisition [facility] MAIN LAB [address] [place] [address] Alan Davenport MD [facility]1 [facility] [place] [address] Social History Tobacco Use Types Packs/Day Years [...] Info) Description 08/04/2024 11:30 AM CDT Appointment [facility] MRI [address] [place] [address] Thomas Mendoza MD [address] [facility] 2L [place] [address] 08/04/2024 1:30 PM CDT Office Visit [facility] - Urology [address] [place] [address] Thomas Mendoza MD 12[address] [facility] 2L [place] [address] documented as of this encounter Procedures Procedure Name Priority Date/Time Associated Diagnosis Comments HOLD HLA SPECIMEN Routine 01/27/2024 3:2 3 PM TURNING MACHINE OPERATOR HELPER documented in this encounter Results * HOLD HLA SPECIMEN (01/27/2024 3:23 PM TURNING MACHINE OPERATOR HELPER) Hold HLA Specimen 02/04/2024 4:31 PM TURNING MACHINE OPERATOR HELPER [facility] ([facility]) Comment:The Hold HLA specime n has been received into the lab and will be held for 5 years at 4 degrees. Blood BLOOD SPECIMEN / Unknown 01/27/2024 3:23 PM TURNING MACHINE OPERATOR HELPER 02/04/2024 3:23 PM TURNING MACHINE OPERATOR HELPER Alan Davenport MD LAB - BLOOD BANK ORD ERABLES [facility] ([employer]) [address] documented in this encounter Visit Diagnoses Not on filedocumented in this encounter Care Teams Clinical Engineering Manager Relationship Specialty Start Date End Date Jeff Strickland MD [address] [place] [address] PCP - General 03/05/18 [place] [address] [facility] [address] [place] [address] Orthopedic Surgery 03/28/17 documented as of this encounter
--- OUTSIDE RECORDS SUMMARY | 2024-03-28 15:31 | XMS_ITS ---
Author Organization [facility] Address [facility] [place] [address] Care Team Providers Care Supervisor Tan Room Name Role Phone Jeff Strickland MD Primary Care Provider Chan Nicholas MD Unavailable [phone] Alan Mccall MD Unavailable [phone] Pepito Haro MD PhD Unavailable [phone] Solange Guido MD Unavailable [phone] Active Problems Problem Noted Date Diagnosed Date Subconjunctival hemorrhage of right eye 10/01/19 24 Assessment & Plan (10/01/2023 3:50 PM CDT): Posterior borders viewed easily at slit lamp Educated and reassured patient of findings Artificial tears for comfort PRN with concerns Cystoid macular edema of both eyes 07/02/2023 Overview (03/09/2024): Since after 2019, has been seeing Dr. Hylton and Dr. aWll. Hx of PDT OU and serial antiVEGF [...] PDT. - Patient returned to [facility] for ongoing care and follow up Assessment & Plan (03/09/2024 6:25 PM ADDRESSER): Vision OD trends mild improvement, though still [...] spontaneously, patient can follow in [facility]. Assessment & Plan (10/08/2023 2:51 PM [...] End-stage renal disease on peritoneal dialysis ( [facility]) 04/24/2023 Hypertensive renal failure 04/24/2023 Secondary hyperparathyroidism [...] 03/26/2021 Assessment & Plan (03/26/2021 1:17 PM ADDRESSER): Enlarged mild sella turcica on a routine [...] units Assessment & Plan (03/26/2021 1:17 PM ADDRESSER): Chronic, uncontrolled, improving A1c today 7.7 % [...] WNL Assessment & Plan (03/26/2021 1:16 PM ADDRESSER): Pt currently on Levothyroxine 112 mcg oral [...] 11/18/2018 Assessment & Plan (01/21/2019 2:02 PM ADDRESSER): Symptomatic. Will request for esophageal manometry. Continue [...] 06/09/2018 Chronic diastolic CHF (congestive heart failure) ([facility]) 05/18/2018 SHABNAM on CPAP 05/18/2018 Obesity (BMI 30-39.9) 05/18/2018 Stage 5 chronic kidney disease (CMS/HCC) 019 Hyperlipidemia associated with type 2 diabetes eboni gonzalez 12/03/2017 Assessment & Plan (10/30/2021 8:35 PM CDT): On statin therapy Tolerating well Assessment & Plan (03/26/2021 1:16 PM ADDRESSER): On statin therapy Tolerating well Last lipid [...] nephrectomy. 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 [id number] Current Oncology Plans No current plan information found. Past Plans No past plan information found. Radiation Treatments * No radiation treatments are documented for this patient in [facility]. Treatments may have been [...] were not included. Kendall Carl 1955 Referring Hide Buyer: Alan Mccall Dialysis Info: NOD GFR 13 Type: Time: (Not currently on dialysis) days Blood Type: O NEG Body mass index is 37.36 kg/m . 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 Dr Strickland manages. CHF (congestive heart failure) 2 yrs ago Gas Regulator Repairer Helper is Dr. Becerra in [place]. CKD (chronic kidney disease), stage V Community acquired pneumonia 2018 [facility] hospitalized. Diabetes mellitus 20 years. Lantus pen. Esophageal reflux takes med Hypercholesteremia 5-10 yrs meds Hypertension takes meds Hypothyroidism meds 20 years Kidney stones 5-6 years ago had 2 in the same year. Malignancy right kidney 2012 Obstructive sleep apnea 3 years. [facility]. [place]ont remember doctors name Renal cell [...] file Gets together: Not on file Attends hindu service: Not on file Active member of [...] It is the impression of this social scientist that Kendall Carl has several positive factors for Kidney transplant candidacy from a psychosocial perspective. Patient appears to have appropriate knowledge of illness. Patient has sufficient insurance coverage and stable financial situation for post transplant needs. No concerns regarding substance abuse, legal issues, or mental health needs. Patient has adequate support system and appropriate discharge plan. Plan: garage worker to provide supportive services as needed. Patient appears to be a reasonable candidate for transplant from a psychosocial perspective. -Post transplant arrangement forms are needed prior to being listed. -Updated toxicology results needed, per protocol Psychiatric Consult Recommended: No Transplant Chemical Compounder: Joy Tam LCSW RD: 11/09/2019 BMI= 36.2, [...] use my fitness pal or my food gymnastics coach or instructor) - Consume no more than 2000 calories a day E-mailed pt's a 2000 calorie, CKD meal plan. Items Still Pending: Clinic, colonoscopy Acute pain of left shoulder 01/25/2019 03/25/2023 Non-cardiac chest pain 11/18/201803/25 Assessment & Plan (01/21/2019 2:02 PM ADDRESSER): The pain is persistent. The patient described [...] has had extensive cardiac workup by the spotter including coronary angiogram. He has chest pain [...] CKD stage 4 secondary to hyp ertension ([facility]) 05/18/2018 03/25/2023 Poor diet 05/18/2018 03/25/2023 Dizziness 05/18/2018 03/25/2023 Type 2 diabetes mellitus wit hout complication ([facility]) 12/03/2017 03/25/2023 Kidney disease 08/06/2017 03/25/2023 Obstructive sleep apnea 10/22/201607/2023
--- OUTSIDE RECORDS SUMMARY | 2024-03-28 15:32 | XMS_ITS | Encounter Summary ---
Author Organization [facility] Address [facility] [place] [address] Care Team Providers Care Assistant Professor Of Criminal Justice Name Role Phone Deandre Bojorquez MD Unavailable [phone] Jeff Strickland MD Primary Care Provider [phone] Encounter Details Date Type Department Care Team (Late st Contact Info) Description 05/29/2023 Lab Requisition [facility] MAIN LAB [address] [place] [address] Alan Davenport MD [facility] [place] [address] Social History Tobacco Use Types Packs/Day Years [...] 08/04/2024 11:30 AM CDT Appointment [facility] MRI [address] [place] [address] Thomas Mendoza MD 1225 [facility] 2L DIV [place] [address] 08/04/2024 1:30 PM CDT Office Visit [facility] - Urology [address] [place] [address] Thomas Mendoza MD 12[address] [facility] 2L DIV [place] [address] documented as of this encounter Procedures Procedure Name Priority Date/Time Associated Diagnosis Comments HOLD HLA SPECIMEN Routine 05/21/2023 9:2 4 AM CDT documented in this encounter Results * HOLD HLA SPECIMEN (05/21/2023 9:24 AM CDT) Hold HLA Specimen 05/29/2023 10:30 AM CDT [facility] ([employer]) Comment:The Hold HLA specime n has been received into the lab and will be held for 5 years at 4 degrees. Blood BLOOD SPECIMEN / Unknown 05/21/2023 9:24 AM CDT 05/29/2023 9:24 AM CDT Alan Davenport MD LAB - BLOOD BANK ORD ERABLES [facility] ([email or web address]) [address] [place], [place] [address] [place] [address] documented in this encounter Visit Diagnoses Not on filedocumented in this encounter Care Teams Assistant Professor Of Criminal Justice Relationship Specialty Start Date End Date Jeff Strickland MD [address] [place] [address] PCP - General 03/05/18 [place] [address] [address] Orthopedic Surgery 03/28/17 documented as of this encounter
--- OUTSIDE RECORDS SUMMARY | 2024-03-28 15:32 | XMS_ITS | Clinical Summary ---
Author Organization [facility] Address [address], [place] [address] Phone Care Team Providers Care Experimental Psychologist Name Role Phone Jeff Strickland MD Primary Care Provider [phone] Allergies No known active allergies Medications Medication [...] tablet 3 11/29/2019 Active Continuous Blood Gluc Manager Of Training And Development (FreeStyle Em [place]) device 1 each daily 12/01/2019 Active Continuous Blood Gluc Sensor (FreeStyle Em Sensor System) misc 1 each once every 2 weeks 12/01/2019 Active Lancets (OneTouch Delica Plus [id number]) misc OneTouch Delica Plus Lancet 33 gauge [...] 11/10/2019 Overview (12/17/2019): Kendall Carl 1955 Referring Crop Adjuster: Alan Mccall Dialysis Info: NOD GFR 13 Type: Time: (Not currently on dialysis) days Blood Type: O NEG Body mass index is 37.36 kg/m . ALERTS Car Repairer Pullman: needs to establish Past Medical History: Diagnosis Date Arthropathy RA. Dr Strickland manages. CHF (congestive heart failure) 2 yrs ago Polarity Tester is Dr. Becerra in [place]. CKD (chronic kidney disease), stage V Community acquired pneumonia 2018 [facility] hospitalized. Diabetes mellitus 20 years. Lantus pen. Esophageal reflux takes med Hypercholesteremia 5-10 yrs meds Hypertension takes meds Hypothyroidism meds 20 years Kidney stones 5-6 years ago had 2 in the same year. Malignancy right kidney 2012 Obstructive sleep apnea 3 years. [facility]. Angela remember doctors name Renal cell [...] file Gets together: Not on file Attends jewish service: Not on file Active member of [...] Impression: It is the impression of this psych social worker that Kendall Carl has several positive factors for Kidney transplant candidacy from a psychosocial perspective. Patient appears to have appropriate knowledge of illness. Patient has sufficient insurance coverage and stable financial situation for post transplant needs. No concerns regarding substance abuse, legal issues, or mental health needs. Patient has adequate support system and appropriate discharge plan. Plan: wafer production worker to provide supportive services as needed. Patient appears to be a reasonable candidate for transplant from a psychosocial perspective. -Post transplant arrangement forms are needed prior to being listed. -Updated toxicology results needed, per protocol Psychiatric Consult Recommended: No Transplant Hand Stitcher: Joy Tam LCSW RD: 11/09/2019 BMI= 36.2, [...] use my fitness pal or my food rhythmic gymnastics coach) - Consume no more than 2000 [...] nephrectomy. 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 [id number] Immunizations Name Administration Dates Next Due Influenza [...] (#1) 2023 9, 04/10/2016, 04/09/2016 Care Teams Experimental Psychologist Relationship Specialty Start Date End Date Jeff Strickland MD [address] [facility] [address] [place] [address] PCP - General Internal Medicine 07/15/18
--- OUTSIDE RECORDS SUMMARY | 2024-03-28 15:32 | XMS_ITS | Continuity of Care Document ---
Author Organization [facility] [employer] [place] Address [address] [facility] [address] [place] [address] Phone Care Team Providers Care Wealth Management Consultant Name Role Phone Olu Payan Unavailable [...] Date Provider Providers Copied on Encounter [facility], [place], [place], [id number], tel:[phone] [place] No Information 4 Gladis Olu. [address] [place] [address], [address], [place], [place], [facility], . tel: [phone] [address] [place] [address], [place], [place], [address], tel:[phone] [place] No Information 4 Genvoeva Mcdonald. . Referring Provider: Jeff Strickland [address] [place] [address] [address], [place], [place], [facility]. tel:[phone] [place] [address], [place], [place], [id number], tel:[phone] [place] No Information 4 Gladis Olu. [address] [place] [address], [address], [place], [facility], . tel: [phone] Referring Provider: Yanira Chin [facility] [address], [place], [facility]. tel:[phone] [address] [address], [place], [place], [id number], tel:[phone] [place] No Information 4 Gladis Raines. [address] [place] [address], [address], [place], [place], [facility], . tel: [phone] Referring Provider: Yanira Chin [facility] [address], [place], [address]. tel:[phone], [id number], tel:[phone] [place] No Information 4 Jacinto Fairchild. . Referring Provider: Yanira Chin [facility] [address], [place], [address]. tel:[phone] [address], [place], [place], [id number], [place] tel:[phone] [place] No Information 4 Jacinto Fairchild. . Referring Provider: Jeff Strickland [address] [place] [address] [address], [place], [facility]. tel:[phone], [id number], tel:[phone] [place] No Information 4 Genoveva Mcdonald. . Referring Provider: Jeff Strickland [address] [place] [address] [address], [place], [facility]. tel:[phone], [id number], tel:[phone] [place] No Information 4 Gladis Raines. [address] [facility], [address], [place], [facility], . tel: [phone] Referring Provider: Jeff Strickland [address] [place] [address] [address], [place], [facility]. tel:[phone], [id number], tel:[phone] [place] No Information 0 4 Genoveva Mcdonald. . Referring Provider: Jeff Strickland [address] [place] [address] [address], [place], [facility]. tel:[phone] [address], [place], [id number], [place] tel:[phone] [place] No Information 0 4 Gladis Raines. [address] [facility], [address], [place], [place], [facility], . tel: [phone] Referring Provider: Jeff Strickland [address] [place] [address] [address], [place], [facility]. tel:[phone] Family History Family Member Type Diagnosis Age At Onset No Information Payers Payer name Insurance type Covered constitution party ID Diego suarez(ernesto Hadley [id number] Social History Type Description Quantity Date Captured [...]
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
--- OUTSIDE RECORDS SUMMARY | 2024-03-28 15:32 | XMS_ITS ---
Author Organization [facility] Address [address] [place] [address] Care Team Providers Care Cloth Examiner Name Role Phone Jeff Strickland MD Primary Care Provider Chan Nicholas MD Unavailable [phone] Alan Mccall MD Unavailable [phone] Pepito Haro MD PhD Unavailable [phone] Solange Guido MD Unavailable [phone] Dialysis Access Sites Type Status Location Placement Date Removal Da te Peritoneal Dialysis Catheter Mid lower abdomen Active Abdomen - Lower, Medial (Navel) Hemodialysis Cath Double Inactive Right Breast - Upper 05/01/2021 Hemodialysis Cath Double Inactive Right Breast - Upper 0 05/02/2021 11/22/2021 Procedures Procedure Name Priority Date/Time Associated Diagnosis Comments OCT, RETINA - OU - BOTH EYES Routine 03/09/2024 2:00 PM MOVE COORDINATOR Cystoid macular edema of both eyes POCT [...] day with meals 06/27/19 21 Active vit C,K-Fn-uyeia-lutein- zeaxan 250-90-40-1 mg capsule Take 1 capsule [...] day as needed (nasal irrigation) Active FA-vit Bhwzd-V-ufpb-vitamin D3 (Dialyvite 800-Ultra D) 0.8-2,000 mg-unit tablet [...] warrant further PDT. - Patient returned to [facility] for ongoing care and follow up Assessment & Plan (03/09/2024 6:25 PM MOVE COORDINATOR): Vision OD trends mild improvement, though still [...] We discussed that genetic results would not belt changer. Given we have exhausted available treatment [...] 2 weeks and have patient return to [facility] retina in 4 weeks for [...] 03/26/2021 Assessment & Plan (03/26/2021 1:17 PM MOVE COORDINATOR): Enlarged mild sella turcica on a routine [...] units Assessment & Plan (03/26/2021 1:17 PM MOVE COORDINATOR): Chronic, uncontrolled, improving A1c today 7.7 % [...] WNL Assessment & Plan (03/26/2021 1:16 PM MOVE COORDINATOR): Pt currently on Levothyroxine 112 mcg oral [...] 11/18/2018 Assessment & Plan (01/21/2019 2:02 PM MOVE COORDINATOR): Symptomatic. Will request for esophageal manometry. Continue [...] Chronic diastolic CHF (congestive heart failure) ([facility]) 05/18/2018 SHABNAM on CPAP 05/18/2018 Obesity (BMI 30-39.9) 05/18/2018 Stage 5 chronic kidney disease ([facility]) 019 Hyperlipidemia associated with type 2 diabetes eboni gonzalez 12/03/2017 Assessment & Plan (10/30/2021 8:35 PM CDT): On statin therapy Tolerating well Assessment & Plan (03/26/2021 1:16 PM MOVE COORDINATOR): On statin therapy Tolerating well Last lipid [...] nephrectomy. 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 [id number] Immunizations Name Administration Dates Next Due Hep [...] = 0.6 oz pur e alcohol) rarely [employer] Utilities Answer Date Recorded In the past 12 months has [employer], gas, oil, or water [employer] threatened to shut off services in your [...] often do you attend chur ch or orthodox services? Never 03/25/2023 Do you belong to any clubs o r organizations such as sikh groups, unions, fraternal or athletic groups, or [...] on file Legal Sex Male 2:23 AM MOVE COORDINATOR Gender Identity Not on file Sexual Orientation [...] OU - Both Eyes (03/09/2024 2:00 PM MOVE COORDINATOR) Central Macular Thickness OS 227 micrometers CONTINUUM Central Macular Thickness OD 479 micrometers CONTINUUM Anatomical Region Laterality Modality Head Optical Coherenc e Tomography Narrative 03/16/2024 12:53 PM MOVE COORDINATOR Right Eye Quality was good. Scan locations [...] 2020. Testing performed by: [facility], [address] [place] [address]., [id number] Blood 08/11/2023 7:50 PM CDT 08/11/2023 8:05 PM CDT us Leni Cervantes MD LAB BLOOD ORDERABLES Kenna l Result [facility] [address] Department [place] [address] * (ABNORMAL) Lipid panel (11/30/2022 [...] revised on 2017. Triglycerides 439(H) <=149 mg/dL [facility] Comment: Interpretive [...] BLOOD ORDERABLES Final Result KERRI SIMPSON [facility] [place] [address] from Last 3 Months or Most Recently Relevant to Health Maintenance
--- OUTSIDE RECORDS SUMMARY | 2024-03-28 15:32 | XMS_ITS | Encounter Summary ---
Author Organization [facility] Address [facility] [place] [address] Care Team Providers Care Dog Barber Name Role Phone Deandre Bojorquez MD Unavailable [phone] Jeff Strickland MD Primary Care Provider [phone] Encounter Details Date Type Department Care Team (Late st Contact Info) Description 10/28/2023 Lab Requisition [facility] [address] [place] [phone] Alan Davenport MD [facility] OF [place] [address] Social History Tobacco Use Types Packs/Day Years [...] Info) Description 08/04/2024 11:30 AM CDT Appointment [facility] MRI [address] [place] [address] Thomas Mendoza MD [address] [facility] 2L [place] [address] 08/04/2024 1:30 PM CDT Office Visit [facility] - Urology [address] [place] [address] Thomas Mendoza MD [address] [facility] 2L [place] [address] documented as of this encounter Procedures Procedure Name Priority Date/Time Associated Diagnosis Comments HOLD HLA SPECIMEN Routine 10/22/2023 3:5 0 PM CDT documented in this encounter Results * HOLD HLA SPECIMEN (10/22/2023 3:50 PM CDT) Hold HLA Specimen 10/28/2023 5:00 PM CDT [facility] Comment:The Hold HLA specime n has been received into the lab and will be held for 5 years at 4 degrees. Blood BLOOD SPECIMEN / Unknown 10/22/2023 3:50 PM CDT 10/28/2023 3:50 PM CDT Alan Davenport MD LAB - BLOOD BANK ORD ERABLES [facility] ([facility]) [address] [place], [place] [address] [place] [address] documented in this encounter Visit Diagnoses Not on filedocumented in this encounter Care Teams Dog Barber Relationship Specialty Start Date End Date Jeff Strickland MD [address] [place] [address] PCP - General 03/05/18 [place] [address] [address] Orthopedic Surgery 03/28/17 documented as of this encounter
--- OUTSIDE RECORDS SUMMARY | 2024-03-28 15:32 | XMS_ITS | Clinical Summary ---
Author Organization [facility] Address [facility] [place] [address] Care Team Providers Care Cost Controller Name Role Phone Jeff Strickland MD Primary Care Provider [phone] Allergies Active Allergy Reactions Criticality Noted Date [...] by mouth nightly at bedtime. Active Multiple Vitamins-Heath als (PRESERVISION AREDS 2 OR) Take 1 [...] drink = 0.6 oz pur e alcohol) [facility] Utilities Answer Date Recorded In [...] place to sleep or slept in a alf (including now)? No 05/02/2023 Sex and Gender Information Value Date Recorded Sex Assigned at Not on file Legal Sex Male 10:10 AM CREDIT COLLECTIONS SPECIALIST Gender Identity Not on file Sexual [...] discharge from hospital Lifestyle No Alice Rizzo, [facility] Insurance [employer] Advance Directives * Full Code (Latest Code Status on File) Date Activated Date Inactivated Comments 05/02/2023 12:46 AM 05/03/2023 12:26 PM Care Teams Cost Controller Relationship Specialty Start Date End Date Jeff Strickland MD [address] [place] [address] PCP - General FAMILY PRACTICE 02/22/23
--- OUTSIDE RECORDS SUMMARY | 2024-03-28 15:32 | XMS_ITS | Encounter Summary ---
Author Organization [facility] Address [facility] [place] [address] Care Team Providers Care Mortgage Protection Specialist Name Role Phone Deandre Bojorquez MD Unavailable [phone] Jeff Strickland MD Primary Care Provider [phone] Encounter Details Date Type Department Care Team (Late st Contact Info) Description 04/10/2023 Lab Requisition [facility] MAIN LAB [address] [place] [id number] Alan Davenport MD [facility] [place] [address] Social History Tobacco Use Types Packs/Day Years [...] Info) Description 08/04/2024 11:30 AM CDT Appointment [facility] MRI [address] [place] [address] Thomas Mendoza MD [address] [facility] 2L [place] [phone] 08/04/2024 1:30 PM CDT Office Visit [facility] - Urology [address] [place] [address] Thomas Mendoza MD [address] [facility] 2L [place] [phone] documented as of this encounter Procedures Procedure Name Priority Date/Time Associated Diagnosis Comments HOLD HLA SPECIMEN Routine 04/02/2023 3:0 1 PM CONTACT CENTER CONSULTANT documented in this encounter Results * HOLD HLA SPECIMEN (04/02/2023 3:01 PM CONTACT CENTER CONSULTANT) Hold HLA Specimen 04/10/2023 4:01 PM CONTACT CENTER CONSULTANT [facility] ([facility]) Comment:The Hold HLA specime n has been received into the lab and will be held for 5 years at 4 degrees. Blood BLOOD SPECIMEN / Unknown 04/02/2023 3:01 PM CONTACT CENTER CONSULTANT 04/10/2023 3:01 PM CONTACT CENTER CONSULTANT Alan Davenport MD LAB - BLOOD BANK ORD ERABLES [facility] ([employer] [address] documented in this encounter Visit Diagnoses Not on filedocumented in this encounter Care Teams Mortgage Protection Specialist Relationship Specialty Start Date End Date Jeff Strickland MD [address] [place] [address] PCP - General 03/05/18 [place] [address] [facility] [address] [place] [address] Orthopedic Surgery 03/28/17 documented as of this encounter
--- OUTSIDE RECORDS SUMMARY | 2024-03-28 15:32 | XMS_ITS | CONTINUITY OF CARE DOCUMENT ---
Author Name sally zavala Address Unknown Organization [facility] Address [address] [facility] [address] [place] [address] Phone [phone] Care Team Providers Care Patrol Sergeant Sheriff'S Office Name Role Phone Jason Becerra MD Unavailable DONNIE WOOD MD Unavailable [phone] DONNIE WOOD MD Unavailable [phone] PROBLEMS Condition Status Date Provider Notes Fatigue active Jason Becerra MD Chest pain-type to be determined active Micky Becerra MD Sleep apnea active Jason Becerra MD Edema active Jason Becerra MD Diastolic heart failure active Jason cooney MD Hypertension active ? Jason Becerra MD Hyperlipidemia active ? Jason Becerra MD Diabetes, Type 2 active ? Jason Becerra MD Cardiology examination active Jason Becerra MD ENCOUNTERS Date Type Provider Location Encounter Diag nosis - In-person encounter Office Visit Jason Becerra MD [place] [facility] - In-person encounter Office Visit Jason Becerra MD [facility] Fatigue - In-person encounter Office Visit Jason Becerra MD [facility] Chest pain-type to be determined - In-person encounter Office Visit Jason Becerra MD [facility] Office - In-person encounter Office Visit Jason Becerra MD [place] [facility] Cardiology examinationDiabetes, Type 2HyperlipidemiaHypertens ionDiastolic heart [...] [employer]Logic 3.5-5.2 sodium, serum 141 mmol/L [employer] [id number] 4355/09/26 urea nitrogen/creatini ne ratio, serum 19 [employer] [...] Statu s: Monica oropeza: 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 Jason Becerra MD social history reviewed E&M revi ewed - no changes required Jason Becerra MD smoking status Never smoker Amy doan FAMILY HISTORY Family Member Condition First Degree Blood Relative No Known Fam steven History INSURANCE PROVIDERS Payer name Policy type / Coverage type Davis red constitution party ID AETNA CHOICE POS II Commercial insurance company [id number] ADVANCE DIRECTIVES Name Date POWER OF GUITAR TEACHER TREATMENT PLAN Date Name Performer Cardiology follow [...] Becerra MD Cardiology Jason Becerra MD Cardiology Jasno Becerra MD Cardiology Jason Becerra MD Cardiology:His [...] BASIC METABOLIC PANE L W/EGFR DLCO - 74103 FRC - 94714 FVC - 00764 HISTORY OF PROCEDURES Procedure Date Procedure Name Provider Procedure Notes S tatus EKG Jason Becerra MD complete d Regadenoson, 4 units Jason Becerra MD completed Cardiolite, 2 units Jason Becerra MD completed SPECT Images Jason Becerra MD comple wendy Stress EKG Jason Becerra MD complete d FVC / MVV - 90245 Jason Becerra MD c ompleted BLOOD COUNT HEMOGLOBIN Jason Becerra MD completed FRC - 56405 Jason Becerra MD complet ed SpO2 w/o 6min walk/titration Jason Becerra MD completed DLCO - 30587 Jason nguyen DEMETRIS Becerra MD complete d
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
--- OUTSIDE RECORDS SUMMARY | 2024-03-28 15:32 | XMS_ITS | Clinical Summary ---
Author Organization [facility] Address [address] [place] [address] Phone Care Team Providers Care Dairy Equipment Installer Name Role Phone Jeff Strickland MD Primary Care Provider [phone] Allergies No known active allergies Medications pantoprazole [...] tablet Take 112 mcg by mouth daily public works laborer. Active aspirin (ANGELLA) 325 mg tablet Take 325 mg by mouth daily. Active Vit C-Vit S-Npszee-EjOg-L utein (PRESERVISION) 226 mg-200 unit -5 mg-0.8 [...] Department Care Team Description 03/03/2024 2:05 PM SCIENTIFIC PUBLICATIONS EDITOR Ancillary Procedure [facility] [address] [place] [address] Sergio Rivera MD Pain in [...] Comments Blood Pressure 167/77 02/04/2019 9:16 AM SCIENTIFIC PUBLICATIONS EDITOR Pulse 64 02/04/2019 9:16 AM SCIENTIFIC PUBLICATIONS EDITOR Temperature 36.5 C (97.7 F) 02/04/2019 9:16 AM SCIENTIFIC PUBLICATIONS EDITOR Respiratory Rate 16 02/04/2019 9:16 AM SCIENTIFIC PUBLICATIONS EDITOR Oxygen Saturation 97% 02/04/2019 9:16 AM SCIENTIFIC PUBLICATIONS EDITOR Inhaled Oxygen Concentration - - Weight 113.4 kg (250 lb) 02/04/2019 9:16 AM SCIENTIFIC PUBLICATIONS EDITOR Height 175.3 cm (5' 9 ) 02/04/2019 9:16 AM SCIENTIFIC PUBLICATIONS EDITOR Body Mass Index 36.92 02/04/2019 9:16 AM SCIENTIFIC PUBLICATIONS EDITOR Plan of Treatment Health Maintenance Due Date [...] 2+ VW BILAT Routine 03/03/2024 2:26 PM SCIENTIFIC PUBLICATIONS EDITOR Pain in shoulder region, left Pain in shoulder region, right from Last 3 Months Results * XR SHOULDER 2+ VW BILAT (03/03/2024 2:26 PM SCIENTIFIC PUBLICATIONS EDITOR) Anatomical Region Laterality Modality Upper Extremity Computed Radiogr aphy 03/03/2024 2:27 PM SCIENTIFIC PUBLICATIONS EDITOR Impressions 03/03/2024 2:34 PM SCIENTIFIC PUBLICATIONS EDITOR IMPRESSION: 1. 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 Narrative 03/03/2024 2:34 PM SCIENTIFIC PUBLICATIONS EDITOR EXAM: XR SHOULDER 2+ VW BILAT DATE: [...] Last 3 Months Insurance [employer] MEDICARE SUPPLEMENT [address] [place], [place] [id number] [facility] [place] [address] BLUE ACCESS/TRUE BLUE PPO Care Teams Dairy Equipment Installer Relationship Specialty Start Date End Date Jeff Strickland MD [address] [facility] [address] [place] [address] PCP - General Family Practice 01/01/19
--- OUTSIDE RECORDS SUMMARY | 2024-03-28 15:32 | XMS_ITS | Continuity of Care Document ---
Author Organization [facility] Address [address] [place] [address] Phone Care Team Providers Care Equipment Processor Name Role Phone Kee Rodriguez Unavailable Unavailable Procedures Procedure Date Office/outpatient Visit, Est Eye Exam Established Pt Advance Directives Directive Yes / No Effective Date File Name No Information Encounters Encounter Description Practice Location Reason(s) For Visit Diagnoses Date Provider Providers Copied on Encounter Office/outpat ient Visit, Est [facility], [address] [place] [address] [address], [place], [place], [id number], tel:[phone] [facility] No Information Mar-0 2-201 0 Krishnasamy Kee. [address] [facility] [address] [address] [place] [address], [place], [place], [facility], [place]. tel:[phone] [facility], [address] [place] [address] [address], [place], [place], [id number], tel:[phone] SEC [facility] No Information Nhan-3 0-200 7 David OD Freddy. [address], [place], [place], [facility], [place]. tel:[phone] Family History Family Member Type Diagnosis Age [...]
--- OUTSIDE RECORDS SUMMARY | 2024-03-28 15:32 | XMS_ITS | Patient Health Summary ---
Author Organization [facility] Address [address] [place] [address] Care Team Providers Care Performance Engineer Name Role Phone Deandre Bojorquez MD Unavailable [phone] Jeff Strickland MD Primary Care Provider [phone] Note from [facility],non-owned Affiliates and Associated Physician Practices is amultiple site organization consisting of ambulatory clinics and hospital sitesin [place], [place], [place] and [place]. This disclosure is being madepursuant to the Care Everywhere program and may not contain all information available regarding this patient. 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 Pre-transplant evaluation for kidney transplant [...] Comments Blood Pressure 134/74 03/03/2024 12:47 PM RACECAR DRIVER Pulse 65 03/03/2024 12:47 PM RACECAR DRIVER Temperature 36.2 C (97.2 F) 08/06/2023 1:56 PM CDT Respiratory Rate 18 01/14/2022 1:01 PM RACECAR DRIVER Oxygen Saturation 96% 03/03/2024 12:47 PM RACECAR DRIVER Inhaled Oxygen Concentration - - Weight 119.7 kg (264 lb) 03/03/2024 12:47 PM RACECAR DRIVER Height 172.7 cm (5' 8 ) 03/03/2024 12:47 PM RACECAR DRIVER Body Mass Index 40.14 03/03/2024 12:47 PM RACECAR DRIVER Medical Devices Implanted Type Area Senior Technical Editor Device Identifier Shelf Expiration Date Model / Serial / Lot Sys Cor Stent Xience Srr 3mm 18mm Rap Ex Implanted:Qty: 1 on 08/04/2020 by Javier Lan MD at [facility] Stent Coronary [employer] 06/19/2022 [id number] Description:STENT Sys Cor Stent Xience Srr 3mm 8mm Rap Ex Implanted:Qty: 1 on 08/04/2020 by Javier Lan MD at [facility] [employer] 09/03/2021 [id number] Description:stent Procedures * HOLD HLA SPECIMEN(Performed 03/05/2024) [...] unspecified vessel or lesion type, unspecified whether tanacross or transplanted heart (HCC), Congestive heart failure, unspecified HF chronicity, unspecified heart failure type (HCC), Type 2 diabetes mellitus with chronic kidney disease on chronic dialysis, without long-term current use of insulin (HCC), Hypertension, unspecified type * STRESS TEST(Performed 11/06/2022) Performed for Pre-kidney transplant, listed, Coronary artery disease with angina pectoris, unspecified vessel or lesion type, unspecified whether tanacross or transplanted heart (HCC), Congestive heart failure, unspecified HF chronicity, unspecified heart failure type (HCC), Type 2 diabetes mellitus with chronic kidney disease on chronic dialysis, without long-term current use of insulin (HCC), Hypertension, unspecified type * ECHO COMPLETE(Performed 11/06/2022) Performed for Pre-kidney transplant, listed, Coronary artery disease with angina pectoris, unspecified vessel or lesion type, unspecified whether tanacross or transplanted heart (HCC), Congestive heart failure, [...] 11/07/2021) Performed for Coronary artery disease involving tanacross coronary artery of tanacross heart without angina pectoris * IR CENTRAL [...] 08/04/2020) Performed for Coronary artery disease involving tanacross coronary artery of tanacross heart with angina pectoris (HCC), Pre-transplant evaluation [...] 06/15/2020) Performed for Coronary artery disease involving tanacross coronary artery of tanacross heart without angina pectoris * LIPID PROFILE(Performed 06/15/2020) Performed for Coronary artery disease involving tanacross coronary artery of tanacross heart without angina pectoris * CT KIDNEYS [...] * HOLD HLA SPECIMEN (03/05/2024 1:40 PM RACECAR DRIVER) Only the most recent of9 resultswithin the time period is included. [facility] Hold HLA Specimen 03/12/2024 3:00 PM RACECAR DRIVER [facility] ([facility]) Comment:The Hold HLA specime n has been received into the lab and will be held for 5 years at 4 degrees. Blood BLOOD SPECIMEN / Unknown 03/05/2024 1:40 PM RACECAR DRIVER 03/12/2024 1:40 PM RACECAR DRIVER Alan Davenport MD LAB - BLOOD BANK ORD ERABLES [facility] ([facility]) [address] [id number] * EKG 12-LEAD (10/14/2023 11:24 AM CDT) Pathologist [facility] Ventricular Rate 53 BPM [facility] Atrial Rate 53 BPM [facility] P-R Interval 170 ms [facility] QRS Duration ms 96 ms [facility] Q-T Interval ms 534 ms [facility] QTC Calculation (Bezet) 501 ms [facility] Calculated P [place] 20 degrees [facility] M[facility] Calculated [place] -50 degrees [facility] MUSE Calculated [place] -32 degrees [facility] M[facility] Interpretation EKG SINUS BRADYCARDIA INCOMPLETE RIGHT BUNDLE BRANCH BLOCK LEFT ANTERIOR FASCICULAR BLOCK SEPTAL INFARCT , AGE UNDETERMINED PROLONGED QT ABNORMAL ECG NO PREVIOUS ECGS AVAILABLE Confirmed by SHANELL CAICEDO MD ([id number]) on 10/16/2023 10:56:56 AM [facility] 10/14/2023 11:2 4 AM CDT 10/16/2023 10:56 AM CDT Letha Christine COMMUNITY HEALTH CONSULTANT-CMA OR LPN ECG ORDERABLES PATIENCE MUSE * MRI ABDOMEN [...] - 1.20 mg/dL 07/17/2023 10:59 AM CDT [facility] eGFR 16(L) >=90 mL/min/1.7 3 m2 07/17/2023 10:59 AM CDT [facility] Blood BLOOD SPECIMEN / Unknown 07/17/2023 10:44 AM CDT 07/17/2023 10:59 AM CDT Martinez Sandhu MD LAB - POINT OF CARE ORDERABLES [facility] [address] [place] [address] * US RETROPERITONEAL COMPLETE (05/21/2023 12:05 PM [...] component. Report dictated by Romel Hendricks, MD, (radiology services manager). > Dictated by Romel Hendricks MD ([employer] Architect) 05/21/2023 11:22 AM ILizandro MD have personally reviewed and interpreted this examination/study. > Interpreting Provider: Lizandro Diaz MD on 05/21/2023 12:34 PM Narrative 05/21/2023 12:34 PM CDT PROCEDURE: US RETROPERITONEAL COMPLETE, DATE/TIME OF EXAM: 05/21/2023 12:05 PM, LOCATION [facility] INDICATION: Z76.82: Pre-kidney transplant, [...] PROCEDURE: US RETROPERITONEAL COMPLETE, DATE/TIME OF EXAM: 4/3/579562:05 PM, LOCATION [facility] INDICATION: Z76.82: Pre-kidney transplant, [...] component. Report dictated by Romel Hendricks MD, (radiology services manager). > Dictated by Romel Hendricks MD (S[employer] Architect) 05/21/2023 11:22 AM I, Lizandro Diaz MD [...] above. > Dictated by Neeraj Johnson MD (Sap [employer]ico Architect) 11/06/2022 12:04 PM I, Ariel Araya MD [...] unspecified vessel or lesion type, unspecified whether tanacross or transplanted heart ([facility]) I50.9: Congestive heart failure, unspecified HF chronicity, unspecified heart failure type ([facility]) E11.22: Type 2 diabetes mellitus with chronic [...] pectoris, unspecifiedvessel or lesion type, unspecified whether tanacross or transplanted heart([facility]) I50.9: Congestive heart failure, unspecified HF chronicity, unspecified heart failure type ([facility]) E11.22: Type 2 diabetes mellitus with chronic [...] above. > Dictated by Neeraj Johnson MD (Sap Fico Architect) 11/06/2022 12:04PM I, Ariel Araya MD have personally reviewed and interpreted this examination/study. > Interpreting Provider: Ariel Araya MD on 11/06/2022 4:[address] MD [place] ORDERABLES * STRESS TEST (11/06/2022 11:27 AM CDT) BSA 2.34 m2 [facility] Predicted METS 7.4 METS [facility] Target HR 131 bpm [facility] Max Age Predicted HR 154 bpm [facility] Baseline HR 56 bpm [facility] Stress peak HR 71 bpm [facility] Max HR Percent 46 % [facility] Baseline BP 153/70 mmHg [facility] Post peak BP 153/70 mmHg [facility] Target HR Percent 54 % [facility] Anatomical Region Laterality Modality Cardiac Electrop hysiology Narrative 11/06/2022 3:12 PM CDT ECG: The ECG was negative for ischemia. Please see nuclear imaging under separate report 1110- Pt to Nuc Med procedure room for Lexiscan stress test. Assessment completed. 1113- VSS 1116- Informed consent obtained by Dr. oJhnson. Physician remained at bedside during stress portion of test. 1118- Lexiscan/Myoview administered per NM tech, pt c/o dyspnea, VSS 43494- Test complete, VSS, symptoms resolved. IV dc'd. [...] * ECHO COMPLETE (11/06/2022 9:51 AM CDT) [facility] Signature BSA 2.4372360 m2 [facility] CV FUJ I PACS LV [...] FUJI PACS RVIDd 4.0 cm SSM CV [facility] I PACS RVOT diam Doppler 3.012 cm SS M CV FUJI PACS RVOT area Doppler 7.13 cm2 SS [facility] stroke vol 98.13 cm3 [facility] VTI 13.78 cm [facility] CV [facility] I PACS TV S' dontrell 234.54 [facility] CV [facility] I PACS TAPSE 2.378 1.7 cm [facility] CV [facility] I PACS RVOT pk dontrell 0.69 m/s SSM CV F UJI PACS RA area 19.688 cm2 [facility] CV [facility] I PACS AV mn grad 4 mmHg SSM CV FU JI PACS AV pk grad 7 mmHg SSM CV FU JI PACS AV mn dontrell 0.87 m/s SSM CV [facility] I PACS AV pk dontrell 1.28 m/s SSM CV [facility] I PACS AV VTI 28.508 cm SSM CV [facility] I PACS LVOT pk grad 4.311 mmHg [facility] VTI 25.353 cm S[facility] CV [facility] I PACS AV area cont VTI 2.7 [...] Index 66 ml/m2 SSM CV FUJI PACS [id number] 7.967 cm SSM CV FUJ I PACS [id number] 8.115 cm SSM CV FUJ I PACS [...] % PRA 0 11/13/2022 11:59 AM CDT [facility] ([facility]) Class 2 LUM SAB Moderate Risk DQB1*06:01, 06:03 11/13/2022 11:59 AM CDT [facility] ([facility]) Class 2 SAB Test Date [id number] 11/13/2022 11:59 AM CDT [facility] ([facility]) Comment: This test was developed and its performance characteristics determined by the [facility]. It has not been cleared [...] high complexity clinical laboratory testing. CLIA ID# [id number] Performed at: [facility], [address] [place] [id number] Vehicle Inspector:Dr. Juno Ledesma, PhD, Blood BLOOD SPECIMEN / Unknown No Charge Blood Draw / Unknown 10/28/2022 2:38 PM CDT 11/07/2022 2:38 PM CDT Alan Davenport MD LAB - BLOOD BANK ORD ERABLES [facility] ([facility]) [facility] [address] * HLA ANTIBODY SCREEN LUM CLASS 1 SAB (10/28/2022 2:38 PM CDT) Only the most recent of6 resultswithin the time period is included. % PRA 0 11/13/2022 11:59 AM CDT [facility] ([facility]) Class 1 SAB Test Date [id number] 11/13/2022 11:59 AM CDT [facility] ([facility]) Comment: This test was developed and its performance characteristics determined by the [facility]. It has not been cleared or [...] high complexity clinical laboratory testing. CLIA ID# [id number] Performed at: [facility], [address] [place] [id number] Vehicle Inspector:Dr. Juno Ledesma, PhD, Blood BLOOD SPECIMEN / Unknown No Charge Blood Draw / Unknown 10/28/2022 2:38 PM CDT 11/07/2022 2:38 PM CDT Alan Davenport MD LAB - BLOOD BANK ORD ERABLES [facility] ([facility]) [address] [place] [address] * OXALATE BLOOD (03/04/2022 11:04 AM RACECAR DRIVER) Oxalate <2.0 <=2.0 umol/L 03/09/2022 6:49 PM RACECAR DRIVER [facility] [employer] ([facility]) Comment: INTERPRETIVE INFORMATION: Oxalate, Plasma This test was developed and its performance characteristics determined by [facility]. It has not been cleared or approved by the US Food and Drug Administration. This test was performed in a CLIA certified laboratory and is intended for clinical purposes. Performed By: [facility] [address] [place] [address] Management Trainee: Mk Egan MD, PhD Blood BLOOD SPECIMEN / Unknown Lab Venipuncture / Unknown 03/04/2022 11:04 AM RACECAR DRIVER 03/04/2022 11:[address] MD LAB - CHEMISTR Y ORDERABLES Performing Organization Address [facility] Co de Phone Number [facility] [employer] [facility]) [address] [place] [address] * MRI ABDOMEN WWO CONTRAST (03/04/2022 10:47 AM RACECAR DRIVER) Anatomical Region Laterality Modality Abdomen Magnetic Resonan ce 03/04/2022 11:0 9 AM RACECAR DRIVER Impressions 03/04/2022 1:36 PM RACECAR DRIVER Impression: 1.Focally decreased signal on opposed-phase images [...] hemorrhagic. Report dictated by Ashkan Almeida MD (radiology services manager). I, Watson Phillips MD have personally reviewed and interpreted this examination/study. > Interpreting Provider: Watson Phillips MD on 03/04/2022 1:36 PM Narrative 03/04/2022 1:36 PM RACECAR DRIVER PROCEDURE: MRI ABDOMEN WWO CONTRAST, DATE/TIME OF EXAM: 03/04/2022 10:47 AM, LOCATION [facility] INDICATION: Z01.818: Pre-transplant evaluation [...] CONTRAST, DATE/TIME OF EXAM: 0:47 AM, LOCATION [facility] INDICATION: Z01.818: Pre-transplant evaluation [...] hemorrhagic. Report dictated by Ashkan Elle, MD (radiology services manager). Watson Leigh MD have personally reviewed and interpreted this examination/study. > Interpreting Provider: Watson Phillips MD on 03/04/2022 1:[address] MD MR ORDERABLES * CT CHEST WO CONTRAST (03/04/2022 10:43 AM RACECAR DRIVER) Only the most recent of2 resultswithin the time period is included. Anatomical Region Laterality Modality Chest Computed Tomogra phy 03/04/2022 11:1 0 AM RACECAR DRIVER Impressions 03/04/2022 12:25 PM RACECAR DRIVER Impression: 1.Unchanged left lower lobe pulmonary nodules. [...] nature. > Dictated by Luis Muñoz DO (radiology services manager). IWilfrid have personally reviewed and interpreted this examination/study. > Interpreting Provider: Wilfrid Fonseca on 03/04/2022 12:25 PM Narrative 03/04/2022 12:25 PM RACECAR DRIVER PROCEDURE: CT CHEST WO CONTRAST, DATE/TIME OF EXAM: 03/04/2022 10:43 AM, LOCATION [facility] INDICATION: Z01.818: Pre-transplant evaluation [...] CONTRAST, DATE/TIME OF EXAM: 03/04/2022 10:43AM, LOCATION [facility] INDICATION: Z01.818: Pre-transplant evaluation [...] nature. > Dictated by Luis Muñoz DO (radiology services manager). I, Wilfrid Fonseca have personally reviewed and interpreted this examination/study. > Interpreting Provider: Wilfrid Fonseca on 03/04/2022 12:[address] ORDERABLES * XR CHEST PA AND LATERAL (01/14/2022 10:12 AM RACECAR DRIVER) Only the most recent of2 resultswithin the time period is included. Anatomical Region Laterality Modality Chest Radiographic Pastora ging 01/14/2022 10:2 3 AM RACECAR DRIVER Narrative 01/14/2022 2:50 PM RACECAR DRIVER PROCEDURE: XR CHEST 2VW, DATE/TIME OF EXAM: 01/14/2022 10:12 AM, LOCATION [facility] INDICATION: Z01.818: Pre-transplant evaluation [...] hyperostosis. Report dictated by Ruddy Trivedi MD (radiology services manager). Terry Leigh MD have personally reviewed and interpreted this examination/study. > Interpreting Provider: Terry De Leon MD on 01/14/2022 2:50 PM Procedure Note Tosha De Leon MD - 01/14/2022 PROCEDURE: XR CHEST 2VW, DATE/TIME OF EXAM: 01/14/2022 10:12 AM,LOCATION [facility] INDICATION: Z01.818: Pre-transplant evaluation [...] hyperostosis. Report dictated by Ruddy Trivedi MD (radiology services manager). Terry Leigh MD have personally reviewed and interpreted this examination/study. > Interpreting Provider: Terry De Leon MD on 01/14/2022 2:50 PM Marbin Flores MD DIAGNOSTIC IMAGING O RDERABLES * (ABNORMAL) URINALYSIS COMPLETE W MICROSCOPIC (01/14/2022 9:59 AM RACECAR DRIVER) Only the most recent of2 resultswithin the time period is included. Color UA Straw Straw, Yellow 01/14/2022 11:31 AM [facility] Clarity UA Clear Clear 01/14/2022 11:31 AM [facility] Specific [place] UA 1.025 1.005 - 1.030 01/14/2022 11:31 AM [facility] pH UA 7.0 5.0 - 8.0 pH 01/14/2022 11:31 AM [facility] Protein UA 3+(A) Negative 01/14/2022 11:31 AM [facility] Glucose UA Trace(A) Negative 01/14/2022 11:31 AM [facility] Ketone UA Negative Negative 01/14/2022 11:31 AM [facility] Bilirubin UA Negative Negative 01/14/2022 11:31 AM [facility] Blood UA 1+(A) Negative 01/14/2022 11:31 AM [facility] Nitrite UA Negative Negative 01/14/2022 11:31 AM [facility] Leukocyte Esterase Negative Negative 01/14/2022 11:31 AM [facility] Urobilinogen UA Negative Negative mg/dL 01/14/2022 11:31 AM [facility] RBC UA 6-10(A) None Seen, 0-2, 3-5 /HPF 01/14/2022 11:31 AM [facility] WBC UA 0-5 None Seen, 0-5 /HPF 01/14/2022 11:31 AM [facility] Bacteria UA Trace(A) None /HPF 01/14/2022 11:31 AM [facility] Squamous Epithelial Cells UA 0-2 None Seen, 0-2, 3-5 /HPF 01/14/2022 11:31 AM [facility] Mucus UA 1+ /LPF 01/14/2022 11:31 AM [facility] Hyaline Casts UA 0-2 None Seen, 0-2 /LPF 01/14/2022 11:31 AM [facility] Urine URINE SPECIMEN OBTAINED BY CLEAN CATCH PROCEDURE / Unknown Collection / Unknown 01/14/2022 9:59 AM [facility] 01/14/2022 10:47 AM [facility] - 01/14/2022 11:31 AM RACECAR DRIVER Marbin Flores MD LAB - URINALYSIS ORD ERABLES Performing Organization Address [facility] Co de Phone Number [address] [address], [facility] [phone] * PROTEIN URINE RANDOM QUANTITATIVE (01/14/2022 9:59 AM RACECAR DRIVER) Only the most recent of2 resultswithin the time period is included. Protein Urine 365 Not Established mg/dL 01/14/2022 11:47 AM RACECAR DRIVER [facility] Comment:Result obtained by seema christianson. Urine URINE SPECIMEN OBTAINED BY CLEAN CATCH PROCEDURE / Unknown Collection / Unknown 01/14/2022 9:59 AM RACECAR DRIVER 01/14/2022 10:47 AM RACECAR DRIVER Marbin Flores MD LAB - URINE CHEMISTR Y ORDERABLES Performing Organization Address [facility] Co de Phone Number [address] [address], [facility] [phone] * CREATININE URINE RANDOM (01/14/2022 9:59 AM RACECAR DRIVER) Only the most recent of2 resultswithin the time period is included. Creatinine Urine 81 Not Established mg/dL 01/14/2022 11:20 AM RACECAR DRIVER [facility] Urine URINE SPECIMEN OBTAINED BY CLEAN CATCH PROCEDURE / Unknown Collection / Unknown 01/14/2022 9:59 AM RACECAR DRIVER 01/14/2022 10:47 AM RACECAR DRIVER Marbin Flores MD LAB - URINE CHEMISTR Y ORDERABLES Performing Organization Address [facility]/ZIP Co de Phone Number [address] [address], [facility] [phone] * CANNABINOID SCREEN BLOOD (01/14/2022 9:54 AM RACECAR DRIVER) Only the most recent of2 resultswithin the time period is included. Marijuana Metabolites Negative 01/19/2022 8:07 PM RACECAR DRIVER [facility] ([facility]) Comment:REFERENCE RANGE: thr shold: 5 ng/mL Specimen Type Comment 01/19/2022 8:07 PM RACECAR DRIVER [facility] ([facility]) Comment: WHOLE BLOOD This specimen was screened by immunoassay at the thresholds listed above. Presumptive positive results have not been confirmed by an alternate method; results are intended for clinical medical purposes. Please contact the laboratory if confirmatory testing is desired. This test was developed and its performance characteristics determined by [facility]. It has not been cleared or approved by the Food and Drug Administration. Blood BLOOD SPECIMEN / Unknown Lab Venipuncture / Unknown 01/14/2022 9:54 AM RACECAR DRIVER 01/14/2022 10:49 AM RACECAR DRIVER Narrative [facility] ([facility]) - 01/19/2022 8:07 PM RACECAR DRIVER Performed at: [facility] [employer] [address] [id number] Vehicle Inspector: Ev Camarena [facility], Phone: [phone] Marbin Flores MD LAB - CHEMISTRY [facility] Performing Organization Address City/State/[facility] Co de Phone Number [facility] ([facility]) [address] [place] [address] * COCAINE METABOLITE QUANT (01/14/2022 9:54 AM RACECAR DRIVER) Only the most recent of2 resultswithin the time period is included. [facility] Cocaine and Metabolite Blood <20 ng/mL 01/18/2022 12:32 AM RACECAR DRIVER [facility] ([facility]) Comment: INTERPRETIVE INFORMATION: Cocaine Metabolite, Serum or [...] developed and its performance characteristics determined by [facility]. It has not been cleared or approved by the US Food and Drug Administration. This test was performed in a CLIA certified laboratory and is intended for clinical purposes. Performed By: [facility] [address] [place] [id number] Management Trainee: Mk Egan MD, PhD Blood BLOOD SPECIMEN / Unknown Lab Venipuncture / Unknown 01/14/2022 9:54 AM RACECAR DRIVER 01/14/2022 10:48 AM RACECAR DRIVER Marbin Flores MD LAB - CHEMISTRY ORDE AZUCENA [facility] [facility]) [address] [place] [address], [facility] * SYPHILIS ANTIBODY CASCADING REFLEX (01/14/2022 9:54 AM RACECAR DRIVER) Only the most recent of2 resultswithin the time period is included. Treponema pallidum Antibody Non-react sylvie Non-react sylvie 01/14/2022 11:52 AM RACECAR DRIVER [facility] Comment: No Laboratory evidence of syphilis infection. Note: Circulating antibodies may be low or undetectable in early infection. If recent exposure is suspected, re-draw sample in 2-4 weeks and repeat testing. Blood BLOOD SPECIMEN / Unknown Lab Venipuncture / Unknown 01/14/2022 9:54 AM RACECAR DRIVER 01/14/2022 10:48 AM RACECAR DRIVER Marbin Flores MD LAB - SEROLOGY ORDER MICHELLE [facility] [address] [address], [facility] [phone] * AMPHETAMINE BLOOD CONFIRMATION (01/14/2022 9:54 AM RACECAR DRIVER) Only the most recent of2 resultswithin the time period is included. Amphetamines Confirmation <20 ng/mL 2022 12:55 AM RACECAR DRIVER [facility] ([facility]) Comment: INTERPRETIVE INFORMATION: Amphetamines, Serum or Plasma, [...] developed and its performance characteristics determined by [facility]. It has not been cleared or approved by the US Food and Drug Administration. This test was performed in a CLIA certified laboratory and is intended for clinical purposes. Methamphetamine Confirmation <20 ng/mL 2022 12:55 AM [facility] ([facility]) MDA Confirmation <20 ng/mL 01/21/20 22 12:55 AM RACECAR DRIVER [facility]) MDMA Confirm <20 ng/mL 2022 12:55 AM RACECAR DRIVER [facility]) MDEA Confirmation <20 ng/mL 022 12:55 AM RACECAR DRIVER [facility]) Comment: Performed By: [facility] [address] [place] [address] Management Trainee: Mk Egan MD, PhD Blood BLOOD SPECIMEN / Unknown Lab Venipuncture / Unknown 01/14/2022 9:54 AM RACECAR DRIVER 01/14/2022 10:48 AM RACECAR DRIVER Marbin Flores MD LAB - CHEMISTRY ORDE AZUCENA [facility] [employer] [facility]) [address] [place] [address] * QUANTIFERON-TB GOLD PLUS 4-TUBE (01/14/2022 9:54 AM RACECAR DRIVER) Only the most recent of2 resultswithin the time period is included. QuantiFERON NIL 0.02 IU/mL 1:41 AM [facility] ([facility]) Comment: Performed By: [facility] [address] [place] [address] Management Trainee: Mk Egan MD, PhD QuantiFERON TB Gold Plus Negative Negative 01/17/2022 1:41 AM [facility] [employer] ([facility] [address]) Comment: Interpretive Data: Quantiferon TB Gold Plus [...] Mycobacterium tuberculosis Infection --- [place], 2010 (http://www.cdc.gov/mmwr/preview/mmwrhtml/ku6042b4.htm), for more information concerning test performance in low-prevalence populations and use in occupational screening. QuantiFERON Plus TB1 Minus NIL 0.00 0.00 - 0.34 IU/mL 01/17/2022 1:41 AM RACECAR DRIVER [facility] [employer] ([facility]) QuantiFERON Plus TB2 Minus NIL 0.01 0.00 - 0.34 IU/mL 01/17/2022 1:41 AM RACECAR DRIVER [facility] ([facility]) QuantiFERON Mitogen Minus NIL >10.00 IU/mL 01/17/2022 1:41 AM RACECAR DRIVER [facility] [employer] ([facility]) Blood BLOOD SPECIMEN / Unknown Lab Venipuncture / Unknown 01/14/2022 9:54 AM RACECAR DRIVER 01/14/2022 10:49 AM RACECAR DRIVER Marbin Flores MD LAB - CHEMISTRY PK ZENG [facility] Organization Address City/State/ZIP Co de Phone Number [facility] [employer] ([facility]) [address] * (ABNORMAL) PTH INTACT ([facility]) (01/14/2022 9:54 AM RACECAR DRIVER) Only the most recent of2 resultswithin the time period is included. Pathologist [facility] PTH Intact 266.9(H) 8.0 - 77.0 pg/mL 01/14/2022 11:37 AM RACECAR DRIVER [facility] Blood BLOOD SPECIMEN / Unknown Lab Venipuncture / Unknown 01/14/2022 9:54 AM RACECAR DRIVER 01/14/2022 11:00 AM RACECAR DRIVER Marbin Flores MD LAB - CHEMISTRY PK ZENG Performing Organization Address City/[facility]/ZIP Co de Phone Number [address] [address], [facility] [phone] * HIV-1 HIV-2 ANTIBODY + HIV P24 AG PANEL (01/14/2022 9:54 AM RACECAR DRIVER) [facility] HIV Antigen/Antibod y 1 & 2 Non-reacti ve Non-react sylvie 01/14/2022 11:52 AM RACECAR DRIVER [facility] Comment:No Laboratory eviden ce of HIV infection. Blood BLOOD SPECIMEN / Unknown Lab Venipuncture / Unknown 01/14/2022 9:54 AM RACECAR DRIVER 01/14/2022 10:48 AM RACECAR DRIVER Marbin Flores MD LAB - CHEMISTRY PK ZENG Performing Organization Address [facility] Co de Phone Number [address] [address], [facility] [phone] * OPIATES BLOOD (01/14/2022 9:54 AM RACECAR DRIVER) Only the most recent of2 resultswithin the time period is included. [facility] Opiates Screen Negative 01/19/2022 8:07 PM RACECAR DRIVER [facility] ([facility]) Comment:REFERENCE RANGE: thr shold: 10 ng/mL Oxycodone Screen Negative 01/20/20 8:07 PM RACECAR DRIVER [facility] ([facility]) Comment:REFERENCE RANGE: thr shold: 10 ng/mL Specimen Type Comment 01/19/2022 8:07 PM RACECAR DRIVER [facility] ([facility]) Comment: WHOLE BLOOD This specimen was screened [...] Lab Venipuncture / Unknown 01/14/2022 9:54 AM RACECAR DRIVER 01/14/2022 10:49 AM RACECAR DRIVER Narrative [facility] ([facility]) - 01/19/2022 8:07 PM RACECAR DRIVER Performed at: 01 - [facility] [address] [place] [address] [id number] Vehicle Inspector: Ev Camarena [facility], Phone: [phone] Marbin Flores MD LAB - CHEMISTRY PK ZENG Performing Organization Address City/[facility]/ZIP Co de Phone Number [facility] ([facility]) [address] [place] [address] * URIC ACID BLOOD (01/14/2022 9:54 AM RACECAR DRIVER) Only the most recent of2 resultswithin the time period is included. [facility] Uric Acid 7.0 3.5 - 7.2 mg/dL 01/14/2022 11:38 AM RACECAR DRIVER [facility] Blood BLOOD SPECIMEN / Unknown Lab Venipuncture / Unknown 01/14/2022 9:54 AM RACECAR DRIVER 01/14/2022 11:00 AM RACECAR DRIVER Marbin Flores MD LAB - CHEMISTRY PK ZENG Performing Organization Address City/[facility] Co de Phone Number [facility] LABORATORY [address] [address], [facility] [phone] * STRONGYLOIDES ANTIBODY IGG (01/14/2022 9:54 AM RACECAR DRIVER) Only the most recent of2 resultswithin the time period is included. [facility] Strongyloides Antibody IgG 0.1 <=0.9 IV 01/16/2022 1:02 AM RACECAR DRIVER [facility] [employer] ([facility]) Comment: INTERPRETIVE INFORMATION: Strongyloides Ab, IgG by [...] also result in false-positive results. Performed By: [facility] [address] [place] [address] Management Trainee: Mk Egan MD, PhD Blood BLOOD SPECIMEN / Unknown Lab Venipuncture / Unknown 01/14/2022 9:54 AM RACECAR DRIVER 01/14/2022 10:48 AM RACECAR DRIVER Marbin Flores MD LAB - SEROLOGY ORDER MICHELLE [facility] [employer] [facility]) [address] [place] [address], [facility] * CYTOMEGALOVIRUS ANTIBODY IGG BLOOD (01/14/2022 9:54 AM RACECAR DRIVER) Only the most recent of2 resultswithin the time period is included. Cytomegalovirus Antibody IgG <0.20 U/mL 01/15/2022 4:12 PM RACECAR DRIVER [facility] [employer] ([facility]) Comment: INTERPRETIVE INFORMATION: Cytomegalovirus Antibody, IgG 0.59 [...] laboratory at the same time. Performed By: [facility] [address] [place] [address] Management Trainee: Mk Egan MD, PhD Blood BLOOD SPECIMEN / Unknown Lab Venipuncture / Unknown 01/14/2022 9:54 AM RACECAR DRIVER 01/14/2022 10:48 AM RACECAR DRIVER Marbin Flores MD LAB - CHEMISTRY PK ZENG [facility] [facility]) [address] [place], [place] [address] * TRANSFERRIN (01/14/2022 9:54 AM RACECAR DRIVER) Only the most recent of2 resultswithin the time period is included. Transferrin 176 174 - 382 mg/dL 01/14/2022 11:36 AM RACECAR DRIVER [facility] Blood BLOOD SPECIMEN / Unknown Lab Venipuncture / Unknown 01/14/2022 9:54 AM RACECAR DRIVER 01/14/2022 10:48 AM RACECAR DRIVER Marbin Flores MD LAB - CHEMISTRY PK ZENG Performing Organization Address City/[facility]/ZIP Co de Phone Number [address] [address], [facility] [phone] * TOXOPLASMA GONDII ANTIBODY IGG (01/14/2022 9:54 AM RACECAR DRIVER) Only the most recent of2 resultswithin the time period is included. Pathologist [facility] Toxoplasma Antibody IgG <3.0 IU/mL 01/15/2022 4:23 PM RACECAR DRIVER [facility] ([facility]) Comment: INTERPRETIVE INFORMATION: Toxoplasma Ab, IgG 7.1 [...] the amount of antibody present. Performed By: [facility] [address] [place] [address] Management Trainee: Mk Egan MD, PhD Blood BLOOD SPECIMEN / Unknown Lab Venipuncture / Unknown 01/14/2022 9:54 AM RACECAR DRIVER 01/14/2022 10:48 AM RACECAR DRIVER Marbin Flores MD LAB - CHEMISTRY PK ZENG [facility] ([facility]) [address] * (ABNORMAL) HEMOGLOBIN A1C (01/14/2022 9:54 AM RACECAR DRIVER) Only the most recent of2 resultswithin the time period is included. Hemoglobin A1c 8.7(H) <=5.6 % 01/14/2022 1:10 PM RACECAR DRIVER [facility] LABORATORY [facility] Estimated Average Glucose 203 mg/dL 01/14/2022 1:10 PM RACECAR DRIVER [facility] Comment: HbA1c Interpretation: Normal : < 5.7% Pre-diabetes: 5.7-6.4% Diabetes: Equal to or greater than 6.5% Test results diagnostic of diabetes should be repeated for confirmation. Treatment target values recommended by ADA and other clinical organizations should be used to evaluate metabolic control in patients. Reference: [place] Diabetes Association, Standards of Care in Diabetes -2020 In patients 70 years and older consider HbA1c target range of 7.0-7.5% (Reference: [employer], et al. JAMDA. 2012) The Sebia assay for the measurement of HbA1c is a National Glycohemoglobin Standardization Program (NGSP) certified method. Blood BLOOD SPECIMEN / Unknown Lab Venipuncture / Unknown 01/14/2022 9:54 AM RACECAR DRIVER 01/14/2022 11:00 AM RACECAR DRIVER Marbin Flores MD LAB - CHEMISTRY PK ZENG [facility] [address] [place] [address], [place] [phone] * VITAMIN D 25-HYDROXY (01/14/2022 9:54 AM RACECAR DRIVER) Only the most recent of2 resultswithin the time period is included. Vitamin D, 25 Hydroxy 39.0 30.0 - 80.0 ng/mL 01/14/2022 11:47 AM RACECAR DRIVER [facility]ORY [facility] Comment: The recommendations for 25-Hydroxy Vitamin [...] Lab Venipuncture / Unknown 01/14/2022 9:54 AM RACECAR DRIVER 01/14/2022 11:00 AM RACECAR DRIVER Marbin Flores MD LAB - CHEMISTRY PK ZENG [facility] Organization Address City/State/ZIP Co de Phone Number [facility]ORY [facility] [address] [place] [address], [facility] [phone] * NICOTINE + METABOLITES BLOOD (01/14/2022 9:54 AM RACECAR DRIVER) Only the most recent of2 resultswithin the time period is included. Nicotine <5 ng/mL 01/17/2022 2:23 PM RACECAR DRIVER [facility] [employer] ([facility]) Comment: Consistent with abstinence from nicotine-containing products [...] and its performance characteristics determined by [facility] [employer]. It has not been cleared or approved by the US Food and Drug Administration. This test was performed in a CLIA certified laboratory and is intended for clinical purposes. Performed By: [facility] [address] [place] [address] Management Trainee: Mk Egan MD, PhD Cotinine <5 ng/mL 01/17/2022 2:23 PM RACECAR DRIVER [facility]) Blood BLOOD SPECIMEN / Unknown Lab Venipuncture / Unknown 01/14/2022 9:54 AM RACECAR DRIVER 01/14/2022 10:48 AM RACECAR DRIVER Marbin Flores MD LAB - CHEMISTRY ORDE AZUCENA [facility]) [address] [place] [address], [facility] * (ABNORMAL) CBC W AUTO DIFFERENTIAL (01/14/2022 9:54 AM RACECAR DRIVER) Only the most recent of4 resultswithin the time period is included. WBC 7.4 3.5 - 10.5 10 3/uL 01/14/2022 11:33 AM [facility] RBC 3.19(L) 4.30 - 5.70 10 6/uL 01/14/2022 11:33 AM [facility] Hemoglobin 9.7(L) 12.0 - 17.6 g/dL 01/14/2022 11:33 AM [facility] Hematocrit 28.9(L) 35.2 - 51.7 % 01/14/2022 11:33 AM [facility] MCV 90.6 80.7 - 98.3 fL 01/14/2022 11:33 AM [facility] MCH 30.4 26.7 - 34.0 pg 01/14/2022 11:33 AM [facility] MCHC 33.6 30.8 - 35.9 g/dL 01/14/2022 11:33 AM [facility] RDW-SD 47.2 36.0 - 50.0 fL 01/14/2022 11:33 AM [facility] RDW-CV 14.2 11.2 - 14.8 % 01/14/2022 11:33 AM [facility] Platelet Count 148(L) 150 - 400 10 3/uL 01/14/2022 11:33 AM [facility] MPV 11.7 9.4 - 12.9 fL 01/14/2022 11:33 AM [facility] nRBC Absolute 0.00 0 10 3/uL 01/14/2022 11:33 AM [facility] nRBC Auto 0.0 0 /100 WBC 01/14/2022 11:33 AM [facility] Neutrophils % 75.4(H) 35.0 - 70.0 % 01/14/2022 11:33 AM [facility] Lymphocytes % 11.6(L) 20.0 - 43.0 % 01/14/2022 11:33 AM [facility] Monocytes % 10.6 5.0 - 13.0 % 01/14/2022 11:33 AM [facility] Eosinophils % 0.1 0.0 - 6.0 % 01/14/2022 11:33 AM [facility] Basophil % 0.1 0.0 - 2.0 % 01/14/2022 11:33 AM [facility] Neutrophils Absolute 5.61 1.60 - 7.00 10 3/uL 01/14/2022 11:33 AM [facility] Lymphocyte Absolute 0.86(L) 1.10 - 3.90 10 3/uL 01/14/2022 11:33 AM [facility] Monocytes Absolute 0.79 0.26 - 1.07 10 3/uL 01/14/2022 11:33 AM [facility] Eosinophils Absolute 0.01 0.00 - 0.47 10 3/uL 01/14/2022 11:33 AM [facility] Basophils Absolute 0.01 0.00 - 0.08 10 3/uL 01/14/2022 11:33 AM [facility] Immature Granulocytes % 2.2(H) 0.0 - 1.0 % 01/14/2022 11:33 AM [facility] Immature Granulocytes Absolute 0.16 01/14/2022 11:33 AM [facility] Blood BLOOD SPECIMEN / Unknown Lab Venipuncture / Unknown 01/14/2022 9:54 AM RACECAR DRIVER 01/14/2022 11:00 AM RACECAR DRIVER Marbin Flores MD LAB - HEMATOLOGY ORD ERABLES [facility] [address] [place] [address], [facility] [phone] * (ABNORMAL) COMPREHENSIVE METABOLIC PANEL (01/14/2022 9:54 AM RACECAR DRIVER) Only the most recent of2 resultswithin the time period is included. BUN 27(H) 7 - 26 mg/dL 01/14/2022 11:38 AM [facility] Creatinine 5.60(H) 0.71 - 1.16 mg/dL 01/14/2022 11:38 AM [facility] Sodium 142 136 - 145 mmol/L 01/14/2022 11:38 AM [facility] Potassium 3.6 3.5 - 4.5 mmol/L 01/14/2022 11:38 AM [facility] Chloride 100 98 - 107 mmol/L 01/14/2022 11:38 AM [facility] CO2 24 22 - 29 mmol/L 01/14/2022 11:38 AM [facility] Glucose 217(H) 70 - 115 mg/dL 01/14/2022 11:38 AM [facility] Calcium 8.3(L) 8.4 - 10.2 mg/dL 01/14/2022 11:38 AM [facility] Protein Total 6.8 6.0 - 8.3 g/dL 01/14/2022 11:38 AM [facility] Albumin 3.1(L) 3.4 - 5.0 g/dL 01/14/2022 11:38 AM [facility] Bilirubin Total 0.6 0.2 - 1.2 mg/dL 01/14/2022 11:38 AM [facility] Alkaline Phosphatase 98 40 - 150 U/L 01/14/2022 11:38 AM [facility] ALT 19 5 - 55 U/L 01/14/2022 11:38 AM [facility] AST 17 5 - 34 U/L 01/14/2022 11:38 AM [facility] Anion Gap 22(H) 8 - 18 01/14/2022 11:38 AM [facility] BUN/Creatinine Ratio 5(L) 7 - 23 01/14/2022 11:38 AM [facility] Osmolality Calculated 306(H) 270 - 300 mOsm/kg 01/14/2022 11:38 AM [facility] Albumin/Globulin Ratio 0.8(L) 1.1 - 2.3 01/14/2022 11:38 AM [facility] eGFR by CKD-EPI 11(L) >=90 mL/min/1.7 3 m2 01/14/2022 11:38 AM [facility] Blood BLOOD SPECIMEN / Unknown Lab Venipuncture / Unknown 01/14/2022 9:54 AM RACECAR DRIVER 01/14/2022 11:00 AM RACECAR DRIVER Marbin Flores MD LAB - CHEMISTRY ORDLien ZENG [address] [address], [facility] [phone] * PROSTATE SPECIFIC ANTIGEN SCREEN (01/14/2022 9:54 AM RACECAR DRIVER) Only the most recent of2 resultswithin the time period is included. Pathologist [facility] PSA Total 3.3 0.0 - 4.0 ng/mL 01/14/2022 11:54 AM [facility] Blood BLOOD SPECIMEN / Unknown Lab Venipuncture / Unknown 01/14/2022 9:54 AM RACECAR DRIVER 01/14/2022 11:00 AM RACECAR DRIVER Marbin Flores MD LAB - CHEMISTRY ORDLien ZENG [address] [address], [facility] [phone] * (ABNORMAL) PHOSPHORUS BLOOD (01/14/2022 9:54 AM RACECAR DRIVER) Only the most recent of2 resultswithin the time period is included. [facility] Phosphorus 5.4(H) 2.8 - 5.1 mg/dL 01/14/2022 11:38 AM RACECAR DRIVER [facility] Blood BLOOD SPECIMEN / Unknown Lab Venipuncture / Unknown 01/14/2022 9:54 AM RACECAR DRIVER 01/14/2022 11:00 AM RACECAR DRIVER Marbin Flores MD LAB - CHEMISTRY PK ZENG Performing Organization Address City/[facility]/ZIP Co de Phone Number [address] [address], [facility] [phone] * IRON BLOOD (01/14/2022 9:54 AM RACECAR DRIVER) Only the most recent of2 resultswithin the time period is included. [facility] Iron 62 50 - 175 ug/dL 01/14/2022 11:36 AM [facility] Blood BLOOD SPECIMEN / Unknown Lab Venipuncture / Unknown 01/14/2022 9:54 AM RACECAR DRIVER 01/14/2022 10:48 AM RACECAR DRIVER Marbin Flores MD LAB - CHEMISTRY PK ZENG Performing Organization Address [facility] Co de Phone Number [address] [address], [facility] [phone] * LDL CHOLESTEROL DIRECT (01/14/2022 9:54 AM RACECAR DRIVER) Only the most recent of3 resultswithin the time period is included. [facility] LDL Direct 46 <100 mg/dL 01/14/2022 11:57 AM RACECAR DRIVER [facility] Comment: ATP III Classification of LDL Cholesterol: <100 mg/dL: Optimal 100 - 129 mg/dL: Near Optimal/Above Optimal 130 - 159 mg/dL: Borderline High 160 - 189 mg/dL: High >190 mg/dL: Very High Blood BLOOD SPECIMEN / Unknown Lab Venipuncture / Unknown 01/14/2022 9:54 AM RACECAR DRIVER 01/14/2022 11:00 AM RACECAR DRIVER Marbin Flores MD LAB - CHEMISTRY PK ZENG Performing Organization Address City/[facility]/ZIP Co de Phone Number [address] [address], [facility] [phone] * HEPATITIS B SURFACE ANTIBODY (01/14/2022 9:54 AM RACECAR DRIVER) Only the most recent of2 resultswithin the time period is included. Hepatitis B Virus Surface Antibody Non-react sylvie Non-react sylvie 01/14/2022 11:52 AM RACECAR DRIVER [facility] Comment: < 8 mIU/mL Hepatitis B surface Antibody (HBsAb). Nonreactive for HBsAb - individual is considered not immune to Hepatitis B Virus infection. Hepatitis B Surface Antibody Quantitative 1.2 <8.0 mIU/mL 01/14/2022 11:52 AM RACECAR DRIVER [facility] Comment: Hepatitis B Surface Antibody Numeric Result Interpretation: Nonreactive: <8.0 mIU/mL Indeterminate: 8.0 - 12.0 mIU/mL Reactive: >12.0 mIU/mL Blood BLOOD SPECIMEN / Unknown Lab Venipuncture / Unknown 01/14/2022 9:54 AM RACECAR DRIVER 01/14/2022 10:48 AM RACECAR DRIVER Marbin Flores MD LAB - CHEMISTRY PK ZENG Performing Organization Address [facility] Co de Phone Number [address] [address], [facility] [phone] * HEPATITIS B CORE ANTIBODY (01/14/2022 9:54 AM RACECAR DRIVER) Only the most recent of2 resultswithin the time period is included. HBc Antibody Total Non-reacti ve Non-reacti ve 01/14/2022 11:52 AM RACECAR DRIVER [facility] Blood BLOOD SPECIMEN / Unknown Lab Venipuncture / Unknown 01/14/2022 9:54 AM RACECAR DRIVER 01/14/2022 10:48 AM RACECAR DRIVER Marbin Flores MD LAB - CHEMISTRY PK ZENG Performing Organization Address City/[facility]/ZIP Co de Phone Number [address] [place] [address], [facility] [phone] * HEPATITIS B SURFACE ANTIGEN W RFLX CONFIRMATION (01/14/2022 9:54 AM RACECAR DRIVER) Only the most recent of2 resultswithin the time period is included. Hepatitis B Virus Surface Antigen Non-reacti ve Non-reacti ve 01/14/2022 11:52 AM RACECAR DRIVER [facility] Blood BLOOD SPECIMEN / Unknown Lab Venipuncture / Unknown 01/14/2022 9:54 AM RACECAR DRIVER 01/14/2022 10:48 AM RACECAR DRIVER Marbin Flores MD LAB - CHEMISTRY PK ZENG [address] [address], [facility] [phone] * ALCOHOL ETHYL BLOOD (01/14/2022 9:54 AM RACECAR DRIVER) Only the most recent of2 resultswithin the time period is included. Pathologist [facility] Ethanol (mg/dL) <10 <=10 mg/dL 11:38 AM [facility] Ethanol Calculated (g/dL) <0.010 <0.010 g/dL 01/14/2022 11:38 AM [facility] Blood BLOOD SPECIMEN / Unknown Lab Venipuncture / Unknown 01/14/2022 9:54 AM RACECAR DRIVER 01/14/2022 11:00 AM RACECAR DRIVER Narrative [facility] - 01/14/2022 11:38 AM RACECAR DRIVER Ethanol Interp <10: None Detected. Depression of [employer]: >100 mg/dl Potentially Critical: >250 mg/dl Potentially [...] Flores MD LAB - CHEMISTRY PK ZENG [address] [place] [address], [facility] [phone] * HEPATITIS C ANTIBODY (01/14/2022 9:54 AM RACECAR DRIVER) Only the most recent of2 resultswithin the time period is included. [facility] Hepatitis C Antibody Non-react sylvie Non-reac tive 01/14/2022 11:52 AM RACECAR DRIVER [facility] Comment:Hepatitis C Antibody screen indicates [...] Lab Venipuncture / Unknown 01/14/2022 9:54 AM RACECAR DRIVER 01/14/2022 10:48 AM RACECAR DRIVER Marbin Flores MD LAB - CHEMISTRY PK ZENG Performing Organization Address City/[facility]/ZIP Co de Phone Number [address] [address], [facility] [phone] * HEPATITIS A ANTIBODY (01/14/2022 9:54 AM RACECAR DRIVER) Only the most recent of2 resultswithin the time period is included. [facility] Hepatitis A Virus Antibody Total Negative Negative 01/15/2022 1:38 PM RACECAR DRIVER [facility] ([facility] [address]) Comment: Performed by [facility], [address] [place], [place] [id number] [email or web address] Egan MD, PHD, Lab. Director Blood BLOOD SPECIMEN / Unknown Lab Venipuncture / Unknown 01/14/2022 9:54 AM RACECAR DRIVER 01/14/2022 10:48 AM RACECAR DRIVER Marbin Flores MD LAB - CHEMISTRY PK ZENG Performing Organization Address City/[facility]/ZIP Co de Phone Number [facility]) [address] [place], [place] [id number] * (ABNORMAL) FERRITIN (01/14/2022 9:54 AM RACECAR DRIVER) Only the most recent of2 resultswithin the time period is included. Ferritin 847(H) 22 - 275 ng/mL 01/14/2022 11:52 AM [facility] Blood BLOOD SPECIMEN / Unknown Lab Venipuncture / Unknown 01/14/2022 9:54 AM RACECAR DRIVER 01/14/2022 10:48 AM RACECAR DRIVER Marbin Flores MD LAB - CHEMISTRY PK ZENG Performing Organization Address [facility]/ZIP Co de Phone Number [address] [phone], [facility] [phone] * (ABNORMAL) LIPID PROFILE (01/14/2022 9:54 AM RACECAR DRIVER) Only the most recent of3 resultswithin the time period is included. Cholesterol Total 173 <200 mg/dL 01/14/2022 11:38 AM [facility] HDL 21(L) >40 mg/dL 01/14/2022 11:38 AM [facility] Comment: ATP III Classification of HDL Cholesterol: <40 mg/dL: Considered a major risk factor. >60 mg/dL: Considered a negative risk factor. LDL Calculated 01/14/2022 11:38 AM [facility] Comment:Calculation of LDL v alue was not performed because triglyceride concentrations greater than 400 mg/dL render the calculated value invalid. For this reason, the LDL Direct assay for measurement of LDL Cholesterol has been performed (per laboratory protocol). Triglycerides 706(H) <150 mg/dL 01/14/2022 11:38 AM [facility] Comment: ATP III Classification of Triglycerides: <150 mg/dL: Normal 150 - 199 mg/dL: Borderline High 200 - 400 mg/dL: High >500 mg/dL: Very High Blood BLOOD SPECIMEN / Unknown Lab Venipuncture / Unknown 01/14/2022 9:54 AM RACECAR DRIVER 01/14/2022 11:00 AM RACECAR DRIVER Marbin Flores MD LAB - CHEMISTRY PK ZENG [address] [place] [address], [facility] [phone] * ECHO COMPLETE (11/07/2021 11:30 AM CDT) [...] Alexey Sellers M.D. Vascular and Interventional Radiology [facility] [phone] CC: Patient's nitro man: Dr. Alan Mccall Dialysis unit: [facility] Alan Mccall MD IR ORDERABLES * IR CENTRAL LINE INSERT TUNNEL (04/04/2021 10:31 AM RACECAR DRIVER) Only the most recent of2 resultswithin the time period is included. Anatomical Region Laterality Modality Chest, Upper Extremity X-Ray Ang iography Narrative 04/04/2021 10:20 AM RACECAR DRIVER Santiago Sellers MD 04/04/2021 10:21 AM VASCULAR [...] completed, removal can be scheduled by calling [facility] at [phone]. Alexey Sellers M.D. Vascular and Interventional Radiology [facility] [phone] CC: Patient's nitro man: Dr. Alan Mccall Dialysis unit: [facility] Alan Mccall MD IR ORDERABLES * (ABNORMAL) [...] >60 mL/min/1.7 2 09/07/2020 1:34 PM CDT [facility] Blood BLOOD SPECIMEN / Unknown Lab Venipuncture / Unknown 09/07/2020 12:00 PM CDT 09/07/2020 1:05 PM CDT Alan Mccall MD LAB - CHEMISTRY PK ZENG [facility] Organization Address City/State/[facility] Co de Phone Number [facility] [address] [place] [address] * FL PERITONEUM (09/06/2020 10:07 AM CDT) Anatomical Region Laterality Modality Abdomen X-Ray Angiograph y Narrative 09/06/2020 11:46 AM CDT Aki Boles MD 09/06/2020 2:51 PM Kendall Carl 1955 [id number] Interventional Nephrology Procedure Date: 09/06/2020 Attending Surgeon [...] PLACEMENT: INJECTION OF AIR/CONTRAST OF PERITONEAL CAVITY; 27929; [id number] Findings: 1. Contrast injection through the catheter [...] laparoscopic. Aki Boles MD 09/06/2020 11:46 AM [facility] VAC 107 - [phone] Christiano Perea MD [facility] Alan Mccall MD FLUOROSCOPY ORDERABL ES * CARDIAC PROCEDURE ORDER (08/07/2020 3:59 PM CDT) Narrative 08/07/2020 3:59 PM CDT Ordered by an unspecified provider. Scanned Document CARDIAC SERVICES ORD ERABLES * CCL CARDIAC CATH LEFT (08/04/2020 11:57 AM CDT) Anatomical Region Laterality Modality Chest X-Ray Angiograph y Narrative 08/16/2020 2:51 PM CDT [facility] Cardiac Catheterization Procedure Note Patient: Kendall Carl Age: [age] year old Date of : 1955 Procedure Date: 08/04/2020 FELLOW / POTATO CHIP FRYER: Jade Russo MD ATTENDING PHYSICIAN: Javier Lan [...] evaluation, please review the evaluation forms in [facility]. For details on monitored clinical parameters during the intra-service sedation time, please review the procedure nurse documentation in [facility] and [facility]. Total sedation administered as follows: [...] DURING PCI: Heparin 7. INTERVENTIONAL WIRE: A [employer] wireless pressure wire was advanced beyond the [...] Javier Lan MD Eliza Phan MD CARDIAC YEAST MAKER RA DIANT * (ABNORMAL) GLUCOSE - POINT OF CARE (08/04/2020 9:23 AM CDT) Only the most recent of4 resultswithin the time period is included. [facility] Glucose WB/POC 403(H) 70 - 115 mg/dL 08/04/2020 9:27 AM CDT [facility] Specimen Type Venous 08/04/2020 9:27 AM CDT [facility] Blood BLOOD SPECIMEN / Unknown 08/04/2020 9:23 AM CDT 08/04/2020 9:27 AM CDT Eliza Phan MD LAB - POINT OF CARE ORDERABLES [facility] [address] [place] [address], [facility] [phone] * XR CHEST 1VW (08/02/2020 2:31 PM [...] DIAGNOSTIC IMAGING ORDERABLES * CT KIDNEY BIOPSY( 31831 and [address]475) (08/02/2020 1:16 PM CDT) Anatomical Region Laterality [...] CDT) Case Report Surgical Pathology Report Case: [id number] Authorizing Provider: Thomas Mendoza MD Collected: 08/02/2020 12:20 PM Ordering Location: [facility] IVR Received: 08/02/2020 01:42 PM Pathologist: Elinor Phillips MD Specimen: Kidney Mass, Biopsy 08/04/2020 3:00 PM CDT [facility] Final Diagnosis Kidney, left, biopsy (A): - Oncocytic neoplasm, see comment 08/04/2020 3:00 PM CDT [facility] Microscopic Description and Comment Immunostains show tumor cells are positive for CD117 and rare tumor cells are positive for CK7 and BerEP4. If this biopsy is help desk representative of the entire lesion, it would be consistent with an oncocytoma. 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 Received in formalin, specimen A , are 4 purple-ho soft tissue cores 0.5-1.4 cm in length with diameters of 0.1 cm and a 0.9 x 0.1 x 0.1 cm portion of red-brown blood clot, submitted in toto in cassette A1. 08/04/2020 3:00 PM CDT [facility] Disclaimer The performance characteristics of all immunohistochemical and indirect immunofluorescence stains (if any) cited in this report were determined by the Histopathology Laboratory of [facility]. Some of these tests were developed by [...] attending (teaching) pathologist. 08/04/2020 3:00 PM CDT [facility] Embedded Images 08/04/2020 3:00 PM CDT [facility] Pathology/Cytolo gy MASS / Unknown Collection / Unknown 08/02/2020 12:20 PM CDT 08/02/2020 1:42 PM CDT Thomas Mendoza MD LAB - PATHOLOGY/CY TOLOGY ORDERABLES Performing Organization Address [facility] Co de Phone Number [facility] [address] [phone] * PT-INR (07/28/2020 8:14 AM CDT) PT 12.8 12.1 - 14.8 sec 07/28/2020 8:41 AM CDT [facility] INR 1.0 0.9 - 1.1 07/28/2020 8:41 AM CDT [facility] Blood BLOOD SPECIMEN / Unknown Lab Venipuncture / Unknown 07/28/2020 8:14 AM CDT 07/28/2020 8:14 AM CDT Narrative [facility] - 07/28/2020 8:41 AM CDT Conventional Warfarin Anticoagulant Therapy: INR Reference Range: 2.0-3.0 Intensive Warfarin Anticoagulant Therapy: INR Reference Range: 2.5-3.5 Eliza Phan MD LAB - COAGULATION O RDERABLES Performing Organization Address City/State/[facility] Co de Phone Number [facility] [address] [place], [place] [id number] * (ABNORMAL) BASIC METABOLIC PANEL (CALCIUM TOTAL) (07/28/2020 8:14 AM CDT) Glucose 290(H) 70 - 105 mg/dL [facility]2020 [facility] Sodium 137 136 - 145 mmol/L 07/28/2020 9:06 [facility] Potassium 4.2 3.5 - 5.1 mmol/L 07/28/2020 9:[address] [facility] Chloride 101 98 - 107 mmol/L 07/28/2020 9:06 [facility] CO2 25 23 - 31 mmol/L 07/28/2020 9:[address] [facility] Calcium 8.8 8.4 - 10.4 mg/dL 07/28/2020 9:[address] [facility] Anion Gap 11 8 - 18 mmol/L 07/28/2020 9:[address] [facility] BUN 38(H) 8.4 - 25.7 mg/dL 07/28/2020 9:[address] [facility] Creatinine 5.77(H) 0.72 - 1.25 mg/dL 07/28/2020 9:[address] [facility] eGFR by MDRD 10(L) >60 mL/min/1.7 3m2 07/28/2020 9:[address] [facility] eGFR by MDRD 12(L) >60 mL/min/1.7 3m2 07/28/2020 9:[address] [facility] Blood BLOOD SPECIMEN / Unknown Lab Venipuncture / Unknown 07/28/2020 8:14 AM CDT 07/28/2020 8:14 AM CDT Eliza Phan MD LAB - CHEMISTRY ORD ERABLES [facility] [address] [place] [address] * CT KIDNEYS WWO CONTRAST [...] stability. Report dictated by Donny Oneill DO (radiology services manager) I, Dr. RODRICK JOSEPH have personally reviewed [...] stability. Report dictated by Donny Oneill DO (radiology services manager) I, Dr. RODRICK JOSEPH have personally reviewed and interpreted this examination/study. This report was electronically signed by RODRICK JOSEPH on 11:16 PM . Alan Davenport MD CT ORDERABLES * HEMOGLOBIN A1C - POINT OF CARE (AMB) [facility] (05/17/2020 1:19 PM CDT) Hemoglobin A1c POCT 11.1 BLOOD SPECIMEN / Unknown 05/17/2020 1:19 PM CDT Miya Juárez APRN-CMA OR LPN LAB - POINT O F CARE ORDERABLES [...] the fluoroscopy table in supine position. AP beef ribber image was obtained. A Key catheter was [...] the fluoroscopy table in supine position. AP beef ribber image was obtained. A Key catheter was [...] Rh O NEG 11/09/2019 12:07 PM CDT [facility] Blood BLOOD SPECIMEN / Unknown Lab Venipuncture / Unknown 11/09/2019 10:20 AM CDT 11/09/2019 11:20 AM CDT Alan Davenport MD LAB - BLOOD BANK ORD ERABLES [facility] [address] [place] [address], [facility] [phone] * HLA TYPING DNA LOW RESOLUTION DR,DQ (11/09/2019 10:13 AM CDT) DR DQ Low Resolution DRB1-1 03 (DR17) 12/09/2019 3:33 PM CDT [facility] ([facility]) DR DQ Low Resolution DRB1-2 11 12/09/2019 3:33 PM CDT [facility] ([facility]) DR DQ Low Resolution DQB1-1 02 12/09/2019 3:33 PM CDT [facility] ([facility]) DR DQ Low Resolution DQB1-2 03 (DQ7) 12/09/2019 3:33 PM CDT [facility] ([facility]) DR DQ Low Resolution DRB3-1 01 12/09/2019 3:33 PM CDT [facility] ([facility]) DR DQ Low Resolution DRB3-2 02 12/09/2019 3:33 PM CDT [facility] ([facility]) DR DQ Low Resolution DRB4-1 Negative 12/09/2019 3:33 PM CDT [facility] ([facility]) DR DQ Low Resolution DRB4-2 Negative 12/09/2019 3:33 PM CDT [facility] ([facility]) DR DQ Low Resolution DRB5-1 Negative 12/09/2019 3:33 PM CDT [facility] ([facility]) DR DQ Low Resolution DRB5-2 Negative 12/09/2019 3:33 PM CDT [facility] ([facility]) DR DQ Low Resolution Methodology SSOP 12/09/2019 3:33 PM CDT [facility] ([facility]) Comment DR DQ Low Resolution - 12/09/2019 3:33 PM CDT [facility] ([facility]) DR DQ Low Resolution test date 12/09/2019 12/09/2019 3:33 PM CDT [facility] ([facility]) Comment: This test was developed and its performance characteristics determined by the [facility]. It has not been cleared [...] high complexity clinical laboratory testing. CLIA ID# [id number] Performed at: [facility], [address] [place] [address] Vehicle Inspector: Juan Diego Martin MD, Blood BLOOD SPECIMEN / Unknown Lab Venipuncture / Unknown 11/09/2019 10:13 AM CDT 11/10/2019 3:47 AM CDT Alan Davenport MD LAB - BLOOD BANK ORD ERABLES [facility] ([facility]) [address] [place] [address], [facility] * HLA TYPING DNA LOW RESOLUTION A,B,C (11/09/2019 10:13 AM CDT) ABC DNA A1 02 12/09/2019 3:34 PM CDT [facility] ([facility]) ABC DNA A2 03 12/09/2019 3:34 PM CDT [facility] ([facility]) ABC DNA B1 08 12/09/2019 3:34 PM CDT [facility] ([facility]) ABC DNA B2 44 12/09/2019 3:34 PM CDT [facility] ([facility]) ABC DNA BW1 6 12/09/2019 3:34 PM CDT [facility] ([facility]) ABC DNA BW2 4 12/09/2019 3:34 PM CDT [facility] ([facility]) ABC DNA C1 02 12/09/2019 3:34 PM CDT [facility] ([facility]) ABC DNA C2 07 12/09/2019 3:34 PM CDT [facility] ([facility]) ABC DNA Methodology SSOP 12/08 3:34 PM CDT [facility] ([facility]) Comment ABC DNA - 0 3:34 PM CDT [facility] ([facility]) ABC DNA Test Date 0 12/09/2019 3:34 PM CDT [facility] ([facility]) Comment: This test was developed and its performance characteristics determined by the [facility]. It has not been cleared or [...] high complexity clinical laboratory testing. CLIA ID# [id number] Performed at: [facility], [address] [place] [address] Vehicle Inspector: Juan Diego [place] MD, Blood BLOOD SPECIMEN / Unknown Lab Venipuncture / Unknown 11/09/2019 10:13 AM CDT 11/10/2019 3:47 AM CDT Alan Davenport MD LAB - BLOOD BANK ORD ERABLES Performing Organization Address City/State/[facility] Co de Phone Number [facility] ([facility]) [address] [place] [address] * HLA ANTIBODY SCREEN LUM CLASS 2 ID (11/09/2019 10:13 AM CDT) Pathologist [facility] % PRA 4 12/09/2019 3:33 PM CDT [facility] ([facility]) Class 2 LUM Specificity - 12/09/2019 3:33 PM CDT [facility] ([facility]) Class 2 LUM Test Date 0 12/09/2019 3:33 PM CDT [facility] ([facility]) Comment: This test was developed and its performance characteristics determined by the [facility]. It has not been cleared or [...] high complexity clinical laboratory testing. CLIA ID# [id number] Performed at: [facility], [address] [place] [address] Vehicle Inspector: Juan Diego [place] MD, Blood BLOOD SPECIMEN / Unknown Lab Venipuncture / Unknown 11/09/2019 10:13 AM CDT 11/10/2019 3:40 AM CDT Alan Davenport MD LAB - BLOOD BANK ORD [facility] Performing Organization Address [facility] Co de Phone Number [facility] ([facility]) [address] [place] [address], [place] * HLA ANTIBODY SCREEN LUM CLASS 1 ID (11/09/2019 10:13 AM CDT) % PRA 0 12/09/2019 3:33 PM CDT [facility] ([facility]) Class 1 LUM Specificity - 12/09/2019 3:33 PM CDT [facility] ([facility]) Class 1 LUM Test Date 0 12/09/2019 3:33 PM CDT [facility] ([facility]) Comment: This test was developed and its performance characteristics determined by the [facility]. It has not been cleared or [...] high complexity clinical laboratory testing. CLIA ID# [id number] Performed at: [facility], [address] [place] [address] Vehicle Inspector: Juan Diego [place] MD, Blood BLOOD SPECIMEN / Unknown Lab Venipuncture / Unknown 11/09/2019 10:13 AM CDT 11/10/2019 3:40 AM CDT Alan Davenport MD LAB - BLOOD BANK ORD ERABLES [facility] ([facility]) [address] [place] [address], [place] * HIV-1 HIV-2 ANTIGEN/ANTIBODY (11/09/2019 10:13 AM CDT) Pathologist [facility] HIV Antigen/Antibod y 1 & 2 Non-reacti ve Non-react sylvie 11/09/2019 12:26 PM CDT [facility] Comment:Neither HIV-1 p24 An tigen nor HIV-1/HIV-2 Antibodies are detected. Blood BLOOD SPECIMEN / Unknown Lab Venipuncture / Unknown 11/09/2019 10:13 AM CDT 11/09/2019 11:10 AM CDT Alan Davenport MD LAB - HEMATOLOGY ORD ERABLES [address] [address], [facility] [phone] * RUBELLA ANTIBODY IGG TITER (11/09/2019 10:13 AM CDT) [facility] Rubella Antibody IgG >330.0 IU/mL 11/11/2019 11:06 AM CDT [facility] ([facility]) Comment: INTERPRETIVE INFORMATION: Rubella Antibody, IgG Less [...] the amount of antibody present. Performed By: [facility] [address] [place] [address] Management Trainee: Kaur Blankenship MD Blood BLOOD SPECIMEN / Unknown Lab Venipuncture / Unknown 11/09/2019 10:13 AM CDT 11/09/2019 11:10 AM CDT Alan Davenport MD LAB - SEROLOGY ORDER MICHELLE Performing Organization Address City/[facility]/ZIP Co de Phone Number [facility]) [address] [place] [address] * RUBEOLA ANTIBODY IGG (11/09/2019 10:13 AM CDT) [facility]les ([facility]ola) Antibody IgG >300.0 AU/mL 11/11/2019 12:20 PM CDT [facility] ([facility]) Comment: INTERPRETIVE INFORMATION: Measles (Rubeola) Antibody, IgG [...] laboratory at the same time. Performed By: [facility] [address] [place] [address] Management Trainee: Kaur Blankenship MD Blood BLOOD SPECIMEN / Unknown Lab Venipuncture / Unknown 11/09/2019 10:13 AM CDT 11/09/2019 11:11 AM CDT Alan Davenport MD LAB - CHEMISTRY PK ZENG [facility] Organization Address City/State/ZIP Co de Phone Number [facility]) [address] [place] [address], [facility] * MUMPS ANTIBODY IGG (11/09/2019 10:13 AM CDT) Mumps Virus Antibody IgG >300.0 AU/mL 11/11/2019 11:57 AM CDT [facility] ([facility]) Comment: INTERPRETIVE INFORMATION: Mumps Ab, IgG by [...] laboratory at the same time. Performed By: [facility] [address] [place] [address] Management Trainee: Kaur Blankenship MD Blood BLOOD SPECIMEN / Unknown Lab Venipuncture / Unknown 11/09/2019 10:13 AM CDT 11/09/2019 11:10 AM CDT Alan Davenport MD LAB - CHEMISTRY PK ZENG Performing Organization Address [facility] de Phone Number [facility] ([facility]) [address] [place] [address] * VARICELLA ZOSTER ANTIBODY IGG (11/09/2019 10:13 AM CDT) [facility] Varicella zoster Virus Antibody IgG 1243.0 IV 11/11/2019 12:55 PM CDT [facility] ([facility]) Comment: INTERPRETIVE INFORMATION: VZV Ab, IgG 134.9 [...] laboratory at the same time. Performed By: [facility] [address] [place] [address] Management Trainee: Kaur Blankenship MD Blood BLOOD SPECIMEN / Unknown Lab Venipuncture / Unknown 11/09/2019 10:13 AM CDT 11/09/2019 11:11 AM CDT Alan Davenport MD LAB - CHEMISTRY PK ZENG Performing Organization Address [facility] de Phone Number [facility] ([facility]) [address] [place] [address] * (ABNORMAL) CHARLENE-GAONA VIRUS ANTIBODY TO VCA IGG (11/09/2019 10:13 AM CDT) [facility] Charlene-Gaona Virus Antibody IgG Viral Capsid Antigen 277.0(H) 0.0 - 21.9 U/mL 11/11/2019 12:37 PM CDT [facility] ([facility]) Comment: INTERPRETIVE INFORMATION: Charlene-Gaona Virus Antibody to Viral Capsid Antigen, IgG 17.9 U/mL or less.......Not Detected 18.0-21.9 U/mL..........Indeterminate - Repeat testing in 10-14 days may be helpful. 22.0 U/mL or greater....Detected Performed By: [facility] [address] [place] [address] Management Trainee: Kaur Blankenship MD Blood BLOOD SPECIMEN / Unknown Lab Venipuncture / Unknown 11/09/2019 10:13 AM CDT 11/09/2019 11:12 AM CDT Alan Davenport MD LAB - CHEMISTRY PK ZENG [facility] [employer]) [address] [place] [address] * TYPE + SCREEN PANEL (11/09/2019 10:13 AM CDT) Antibody Screen NEG 0 12:07 PM CDT [facility] B[facility] LAB ABO Rh O NEG 11/09/2019 12:07 PM CDT [facility] LAB Blood Bank BLOOD SPECIMEN / Unknown Lab Venipuncture / Unknown 11/09/2019 10:13 AM CDT 11/09/2019 11:20 AM CDT Alan Davenport MD LAB - BLOOD BANK ORD ERABLES [facility] [address] [place] [address], [facility] [phone] * CT ABDOMEN AND PELVIS NON IV [...] Enlarged prostate. Dictated by Agusto Bradley MD (radiology services manager). I, Dr. Terry DE LEON M.D. have [...] Enlarged prostate. Dictated by Agusto Bradley MD (radiology services manager). I, Dr. Terry DE LEON M.D. have [...] periapical abscess. Dictated by Felipe Younger MD (radiology services manager). Dr. ADRIANA Leigh have personally reviewed and [...] periapical abscess. Dictated by Felipe Younger MD (radiology services manager). Dr. ADRIANA Leigh have personally reviewed and [...] RIGHT 3VW OR MORE (03/05/2018 10:25 AM RACECAR DRIVER) Anatomical Region Laterality Modality Wrist / Hand Radiographic Pastora ging 03/05/2018 11:3 0 AM RACECAR DRIVER Impressions 03/05/2018 12:17 PM RACECAR DRIVER IMPRESSION: 1. No acute bony abnormalities. No significant joint space narrowing. 2. Suggestion of mild diffuse soft tissue swelling of the third digit. Dictated by Lizandro Diaz MD (radiology services manager). Dr. Terry Leigh M.D. have personally reviewed and interpreted this examination/study. This report was electronically signed by Terry DE LEON M.D. on 03/05/2018 12:17 PM . Narrative 03/05/2018 12:17 PM RACECAR DRIVER EXAMINATION: XR HAND RIGHT 3VW OR MORE [...] third digit. Dictated by Lizandro Diaz MD (radiology services manager). Dr. Terry Leigh M.D. have personally reviewed and interpretedthis examination/study. This report was electronically signed by Terry DE LEON M.D. on 03/05/2018 12:17 PM . Aracely Rock PA-C DIAGNOSTIC IMAG ING ORDERABLES * XR KNEE 3 VW RIGHT (03/28/2017 8:14 AM RACECAR DRIVER) Anatomical Region Laterality Modality Lower Extremity Computed Radiogr aphy Narrative 03/28/2017 1:03 PM RACECAR DRIVER Nadja Jenkins, RT(R) 03/28/2017 1:03 PM See progress notes for results Marilou Rodríguez PA-C DIAGNOSTIC IM AGING ORDERABLES Care Teams Performance Engineer Relationship Specialty Start Date End Date Jeff Strickland MD [address] [place] [address] PCP - General 03/05/18 [place] [address] [facility] [address] [place] [id number] Orthopedic Surgery 03/28/17
--- OUTSIDE RECORDS SUMMARY | 2024-03-28 15:32 | XMS_ITS | Encounter Summary ---
Author Organization [facility] Address [facility] [place] [address] Care Team Providers Care Emt Paramedic Name Role Phone Deandre Bojorquez MD Unavailable [phone] Jeff Strickland MD Primary Care Provider [phone] Encounter Details Date Type Department Care Team (Late st Contact Info) Description 09/30/[address] [facility] MAIN LAB [address] [place] [phone] Alan Davenport MD Formerly named [facility] OF [place] [address] Social History Tobacco Use Types Packs/Day Years [...] Description 08/04/2024 11:[address] [facility] MRI [address] [place] [address] Thomas Mendoza MD [address] [facility] 2L DIV OF [place]OLOGIC [place] [address] 08/04/2024 1:30 PM CDT Office Visit [facility] - Urology [address] [place] [address] Thomas Mendoza MD [address] [facility] 2L DIV [place]OLOGIC [place] [address] documented as of this encounter Procedures Procedure Name Priority Date/Time Associated Diagnosis Comments HOLD HLA SPECIMEN Routine 09/24/2023 3:2 7 PM CDT documented in this encounter Results * HOLD HLA SPECIMEN (09/24/2023 3:27 PM CDT) Hold HLA Specimen 09/30/2023 4:32 PM CDT [facility] ([facility]) Comment:The Hold HLA specime n has been received into the lab and will be held for 5 years at 4 degrees. Blood BLOOD SPECIMEN / Unknown 09/24/2023 3:27 PM CDT 09/30/2023 3:27 PM CDT Alan Davenport MD LAB - BLOOD BANK ORD ERABLES [facility] ([facility]) [address] [place], [place] [id number] [place] [address] documented in this encounter Visit Diagnoses Not on filedocumented in this encounter Care Teams Emt Paramedic Relationship Specialty Start Date End Date Jeff Strickland MD [address] [place] [address] PCP - General 03/05/18 [place] [address] [address] Orthopedic Surgery 03/28/17 documented as of this encounter
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
--- OUTSIDE RECORDS SUMMARY | 2024-03-28 15:32 | XMS_ITS | Encounter Summary ---
Author Organization [facility] Address [facility] [place] [address] Care Team Providers Care Central Office Inspector Name Role Phone Deandre Bojorquez MD Unavailable [phone] Jeff Strickland MD Primary Care Provider [phone] Encounter Details Date Type Department Care Team (Late st Contact Info) Description 03/12/2024 Lab Requisition [facility] MAIN LAB [address] [place] [phone] Alan Davenport MD [facility] OF [place] [address] Social History Tobacco Use Types Packs/Day Years [...] Info) Description 08/04/2024 11:30 AM CDT Appointment [facility] MRI [address] [place] [address] Thomas Mendoza MD [address] [facility] 2L DIV [place] [address] 08/04/2024 1:30 PM CDT Office Visit [facility] - Urology [address] [place] [address] Thomas Mendoza MD [address] [facility] 2L [place] [address] documented as of this encounter Procedures Procedure Name Priority Date/Time Associated Diagnosis Comments HOLD HLA SPECIMEN Routine 03/05/2024 1:4 0 PM RECEIVING INSPECTOR documented in this encounter Results * HOLD HLA SPECIMEN (03/05/2024 1:40 PM RECEIVING INSPECTOR) Hold HLA Specimen 03/12/2024 3:00 PM RECEIVING INSPECTOR [facility] ([facility]) Comment:The Hold HLA specime n has been received into the lab and will be held for 5 years at 4 degrees. Blood BLOOD SPECIMEN / Unknown 03/05/2024 1:40 PM RECEIVING INSPECTOR 03/12/2024 1:40 PM RECEIVING INSPECTOR Alan Davenport MD LAB - BLOOD BANK ORD ERABLES [facility] ([place] [address] documented in this encounter Visit Diagnoses Not on filedocumented in this encounter Care Teams Central Office Inspector Relationship Specialty Start Date End Date Jeff Strickland MD [address] [place] [address] PCP - General 03/05/18 [place] [address] [facility] [address] [place] [address] Orthopedic Surgery 03/28/17 documented as of this encounter
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
--- OUTSIDE RECORDS SUMMARY | 2024-03-28 15:32 | XMS_ITS ---
Author Organization [facility] Address [address] [place] [address] Care Team Providers Care Rn Military Name Role Phone Deandre Bojorquez MD Unavailable [phone] Jeff Strickland MD Primary Care Provider [phone] Transplant Episode Kidney Candidate [facility] ([place], [place]) - [facility] Center waitlisted on 05/06/2022 Marked as Inactive on 12/19/2022 Reason: Temporarily too Sick Kidney CoordinatorSavanna Edwards RN Phone: N/A Fax: N/A Email: N/A Scores Score Value Updated Exceptions/Reas ons CPRA Not available EPTS (Calc) 95 03/28/2024 [place] Organ Diagnosis Organ Primary Contributory Kidney Diabetes Mellitus - Type II Hype rtensive Nephrosclerosis Care Team Name Role Phone Fax Email Savanna Edwards RN Kidney Coordinator N/A N/A N/A Alan Mccall MD Referring Physician N/A N/A N/A Anjali Mott LMSW Parasitology Teacher N/A N/A N/A Millie Lindquist Provisioning Specialist N/A N/A N/A Events Pre-Transplant Referred: 12/05/2021 Evaluation began: 12/13/2021 Committee: 05/02/2022 UNOS qualified: 01/17/2020 Center waitlisted: 05/06/2022 Dialysis History Dialysis History Start End Type Comments Center 01/17/2020 Peritoneal [facility] D[facility] Information Center Phone Fax Address [facility] [phone] [address] [place] [phone]
--- OUTSIDE RECORDS SUMMARY | 2024-03-28 15:32 | XMS_ITS | Encounter Summary ---
Author Organization [facility] Address [address] [place] [address] Phone Care Team Providers Care Temple Marker Name Role Phone Jeff Strickland MD Primary Care Provider Chan Nicholas MD Unavailable [phone] Alan Mccall MD Unavailable [phone] Lorna Lantigua MD Unavailable [phone] Juliette Savage RN Unavailable Pepito Haro MD PhD Unavailable Solange Guido MD Unavailable Encounter Details Date Type Department Care Team (Late st Contact Info) Description 05/02/2021 Ophth Exam [facility] [address] [place] [address] 1[address] [place] [phone] Corina Ventura MD PhD [address] [address] Social History Tobacco Use Types [...] on file Legal Sex Male 2:23 AM OCEAN IMPORT REPRESENTATIVE Gender Identity Not on file Sexual Orientation [...] COVID: Suspected 03/24/2023 03/24/2023 03/24/2023 5:45 PM OCEAN IMPORT REPRESENTATIVE COVID19 03/24/2023 03/24/2023 04/08/2023 3:06 AM OCEAN IMPORT REPRESENTATIVE COVID: Recovered Comment:Added based on recent COVID [...] arcade Normal Periphery Normal Normal Care Teams Temple Marker Relationship Specialty Start Date End Date Jeff Strickland MD [address] [place] [address] PCP - General Family Medicine 04/02/18 Chan Nicholas MD [address] [place] [address] Consulting Physician Gastroenterology 11/24/18 Alan Mccall MD [address] [place] [address] Referring Physician Nephrology 11/24/18 Lorna Lantigua MD [address] [place] [address] Consulting Physician Cardiology 11/24/18 07/22/23 Juliette Savage, RN [address] [place] [address] Nurse Navigator 06/04/21 03/14/22 Pepito Haro MD PhD [address] [place] [address] Consulting Physician Neurosurgery 12/03/22 Solange Guido MD [address] [facility] [address] [place] [address] Referring Physician Cardiovascular Disease 07/23/23 documented as of this encounter
--- OUTSIDE RECORDS SUMMARY | 2024-03-28 15:32 | XMS_ITS | Encounter Summary ---
Author Organization [facility] Address [address] [place] [address] Care Team Providers Care Jewelry Drill Operator Name Role Phone Deandre Bojorquez MD Unavailable [phone] Jeff Strickland MD Primary Care Provider [phone] Encounter Details Date Type Department Care Team (Late st Contact Info) Description 02/07/2023 Lab Requisition [facility] [address] [place] [phone] Alan Davenport MD [facility] [place] [address] Social History Tobacco Use Types Packs/Day Years [...] AM CDT Appointment [facility] MRI [address] [place] [address] Thomas Mendoza MD [address] [facility] 2L [place] [phone] 08/04/2024 1:30 PM CDT Office Visit [facility] - Urology [address] [place] [address] Thomas Mendoza MD [address] [facility] [address]L [place] [address] documented as of this encounter Procedures Procedure Name Priority Date/Time Associated Diagnosis Comments HOLD HLA SPECIMEN Routine 2023 7:5 8 AM PHOTOGRAMMETRIST documented in this encounter Results * HOLD HLA SPECIMEN (2023 7:58 AM PHOTOGRAMMETRIST) Hold HLA Specimen 02/07/2023 9:01 AM PHOTOGRAMMETRIST [facility] ([facility]) Comment:The Hold HLA specime n has been received into the lab and will be held for 5 years at 4 degrees. Blood BLOOD SPECIMEN / Unknown 2023 7:58 AM PHOTOGRAMMETRIST 02/07/2023 7:59 AM PHOTOGRAMMETRIST Alan Davenport MD LAB - BLOOD BANK ORD ERABLES [facility] ([facility]) [address] documented in this encounter Visit Diagnoses Not on filedocumented in this encounter Care Teams Jewelry Drill Operator Relationship Specialty Start Date End Date Jeff Strickland MD [address] [place] [address] PCP - General 03/05/18 [place] [address] [facility] [address] [place] [address] Orthopedic Surgery 03/28/17 documented as of this encounter
--- OUTSIDE RECORDS SUMMARY | 2024-03-28 15:32 | XMS_ITS | Encounter Summary ---
Author Organization [facility] Address [facility] [place] [address] Care Team Providers Care Cad Developer Name Role Phone Deandre Bojorquez MD Unavailable [phone] Jeff Strickland MD Primary Care Provider [phone] Encounter Details Date Type Department Care Team (Late st Contact Info) Description 11/21/2023 Lab Requisition [facility] [address] [place] [phone] Alan Davenport MD [facility] OF ABD [place]ANS[place] [address] Social History Tobacco Use Types Packs/Day Years [...] Info) Description 08/04/2024 11:30 AM CDT Appointment [facility] [address] [place] [address] Thomas Mendoza MD [address] [facility] 2L [place] [address] 08/04/2024 1:30 PM CDT Office Visit [facility] - Urology [address] [place] [address] Thomas Mendoza MD [address] [facility] [address] [place] [address] documented as of this encounter Procedures Procedure Name Priority Date/Time Associated Diagnosis Comments HOLD HLA SPECIMEN Routine 11/18/2023 12: 16 PM CDT documented in this encounter Results * HOLD HLA SPECIMEN (11/18/2023 12:16 PM CDT) Hold HLA Specimen 11/21/2023 1:31 PM CDT [facility]) Comment:The Hold HLA specime n has been received into the lab and will be held for 5 years at 4 degrees. Blood BLOOD SPECIMEN / Unknown 11/18/2023 12:16 PM CDT 11/21/2023 12:17 PM CDT Alan Davenport MD LAB - BLOOD BANK ORD ERABLES [facility] ([facility]) [address] [place] [address], [facility] documented in this encounter Visit Diagnoses Not on filedocumented in this encounter Care Teams Cad Developer Relationship Specialty Start Date End Date Jeff Strickland MD [address] [place] [address] PCP - General 03/05/18 [place] [address] [address] Orthopedic Surgery 03/28/17 documented as of this encounter
--- NOTE | 2024-03-28 16:01 | ED_ITS ---
HPI - General Adult General Chief complaint: Extremity Problem,Nontraumatic Stated complaint: knee pain Time Seen by Provider: 03/28/24 15:21 History of Present Illness HPI narrative: 69-year-old male history of left knee pain presents emergency department for evaluation for worsening pain. Patient states he is bending over today when he felt a pop was unsure if the pain was in his knee or in his back. Patient states he has had increased pain with ambulation since then. Patient did have a recent MRI showing medial and lateral menisci injuries on the left. Patient is scheduled to follow-up with Orthopedics on Friday. Related Data Home Medications ?Medication ?Instructions ?Recorded ?Confirmed ?Last Taken ?Type aspirin 81 mg tablet,delayed 81 mg PO DAILY 02/01/19 03/13/24 09/02/23 08:00 History release (Sami Low Dose Aspirin) vit C 250 mg-vit E 200 unit-zinc 1 tablet PO Q12H 02/01/19 03/13/24 09/02/23 08:00 History 12.5 mg-copper 1 [id number] tablet (ICaps AREDS2 (copper citrate)) blood sugar diagnostic (OneTouch 05/14/19 03/13/24 Unknown History Ultra Blue Test Strip) carvedilol 25 mg tablet (Coreg) 25 mg PO Q12H 09/06/19 03/13/24 09/02/23 08:00 History insulin glargine 100 unit/mL (3 30 unit subcut Q12H 10/12/21 03/13/24 09/02/23 08:00 History mL) subcutaneous pen (Allenaglhaylee Trejo U-100 Insulin) lisinopril 20 mg tablet 20 mg PO BID 08/12/22 03/13/24 09/02/23 08:00 History cholecalciferol (vitamin D3) 125 125 mcg PO QNOON 10/01/22 03/13/24 09/01/23 History mcg (5,000 unit) tablet (Vitamin D3) folic acid 0.8 mg-vit B comp with 1 tablet PO QNOON 10/01/22 03/13/24 09/01/23 13:00 History B-zycb-wvpuupp D3 2,000 unit tablet (Dialyvite 800-Ultra D) furosemide 80 mg tablet 160 mg PO BID 08/1503/13/24 09/24/23 History insulin aspart U-100 100 unit/mL See Rx Instructions .Route .COMPLEX 10/01/22 03/13/24 09/02/23 08:00 History (3 mL) subcutaneous pen (Novolog FlexPen U-100 Insulin aspart) diphenhydramine 25 2 tablet PO HS 03/12/23 03/13/24 09/01/23 21:00 History mg-acetaminophen 500 mg tablet (Tylenol PM Extra Strength) atorvastatin 80 mg tablet 80 mg PO HS 09/02/23 03/13/24 09/01/23 21:00 History diltiazem HCl 120 mg 120 mg PO Q12H 09/02/23 03/13/24 09/02/23 08:00 History capsule,extended release 12 hr levothyroxine 112 mcg tablet 112 mcg PO DAILY 09/02/23 03/13/24 09/02/23 08:00 History clonidine 0.2 mg/24 hr weekly 1 patch transdermal WEEKLY 09/25/23 03/13/24 03/13/24 History transdermal patch hydralazine 10 mg tablet 30 mg PO TID 10/15/23 03/14/24 Unknown History tadalafil 5 mg tablet 5 mg PO HS 11/15/23 03/13/24 Unknown History calcium acetate(phosphat bind) 667 2,001 mg PO TIDWM 03/13/24 03/13/24 Unknown History mg capsule fenofibrate nanocrystallized 145 145 mg PO QNOON 03/13/24 03/13/24 Unknown History mg tablet gabapentin 300 mg capsule 300 mg PO Q8H 03/13/24 03/13/24 Unknown History hydrocodone 5 mg-acetaminophen 325 1 tablet PO Q6H PRN pain (scale 03/13/24 03/13/24 Unknown History mg tablet score 4-6) metolazone 5 mg tablet 5 mg PO DAILY 03/13/24 03/13/24 Unknown History pantoprazole 40 mg tablet,delayed 40 mg PO Q12H 03/13/24 03/13/24 Unknown History release Allergies Allergy/AdvReac Type Severity Reaction Status Date / Time No Known Allergies Allergy Verified 03/28/24 14:30 Review of Systems Review of Systems: All systems reviewed & are unremarkable except as noted in HPI and below PMFSH Past Medical History Medical History C. difficile colitis Arthritis Kidney stones Benign prostatic hyperplasia Coronary artery disease End-stage renal disease on peritoneal dialysis Obstructive sleep apnea Insulin dependent type 2 diabetes mellitus Renal cell carcinoma Status post partial left nephrectomy. Dyslipidemia Clostridium difficile infection Gastroesophageal reflux disease Depression with anxiety Hypothyroidism Cirrhosis Pituitary tumor Status post resection. Anemia Chronic diastolic (congestive) heart failure Hypertension Surgical History Surgical History History of open reduction and internal fixation (ORIF) procedure (11/2022) Screw fixation of sternal fracture. History of colonoscopy with polypectomy History of umbilical hernia repair History of inguinal hernia repair History of coronary artery stent placement History of cardiac catheterization (08/2020) Stent x2 to the LAD. History of arthroplasty of right knee History of cataract extraction History of pituitary surgery (11/2021) History of partial nephrectomy Partial left nephrectomy for renal cell carcinoma. History of cholecystectomy (2007) Family History Family History Mother Aneurysm Hypertension Cerebrovascular accident Father Carcinoma of colon Social History Social History Social History: Surrogate medical decision maker: Harriet Carl, spouse. Code status: Full code. Smoking status: Never smoker Second hand tobacco smoke exposure: No Alcohol intake: never Alcohol use details: rare, holidays Substance use: never Substance use type: does not use Do You Feel Safe in your Home?: Yes Lack of Transportation: No Lack of Food: Never True Current Housing: I Have Housing Concerned About Future Housing: No Difficulty Paying Gas/Electric Bills: No Difficulty Paying for Meds: No Currently Unemployed: No Education: Decline to Answer Difficulty w/ Childcare or Family Care: No Living arrangements: with family Additional living arrangements comments: Lives with spouse in [place]. Occupation/Education: retired Additional occupation/education comments: [employer]. Spiritual care concerns: No Agree to blood products: Yes Course Vital Signs Vital signs: Vital Signs Temperature 98.9 F 03/28/24 14:52 Pulse Rate 56 L 03/28/24 14:52 Respiratory Rate 14 03/28/24 14:52 Blood Pressure 129/59 L 03/28/24 14:52 Pulse Oximetry 100 03/28/24 14:52 Oxygen Delivery Room Air 03/28/24 14:52 Temperature 98.9 F 03/28/24 14:52 Pulse Rate 55 L 03/28/24 19:55 Respiratory Rate 16 03/28/24 19:55 Blood Pressure 132/63 03/28/24 19:55 Pulse Oximetry 99 03/28/24 19:55 Oxygen Delivery Room Air 03/28/24 14:52 Medical Decision Making MDM Narrative Medical decision making narrative: 61-year-old male present to the emergency department for evaluation for acute pain after feeling a pop that may have been in his back or his knee. At re- evaluation patient states he does feel improved compared to when he initially felt the pop. Patient was able to ambulate in the emergency department at his baseline. Patient did have free imaging of both the knee and lumbar spine and neither showed acute fracture dislocation or acute injury. Patient does have follow-up with Dr. bobo on Friday. Both patient and family are comfortable plan for discharge and close follow-up. All questions concerns were addressed. Differential Diagnosis Differential Diagnosis: Knee fracture, knee contusion, knee sprain, lumbar fracture Vital Signs Vital Signs: Vital Signs Temperature 98.9 F 03/28/24 14:52 Pulse Rate 56 L 03/28/24 14:52 Respiratory Rate 14 03/28/24 14:52 Blood Pressure 129/59 L 03/28/24 14:52 Pulse Oximetry 100 03/28/24 14:52 Oxygen Delivery Room Air 03/28/24 14:52 Temperature 98.9 F 03/28/24 14:52 Pulse Rate 55 L 03/28/24 19:55 Respiratory Rate 16 03/28/24 19:55 Blood Pressure 132/63 03/28/24 19:55 Pulse Oximetry 99 03/28/24 19:55 Oxygen Delivery Room Air 03/28/24 14:52 Imaging Data Radiologist's impression: Impressions Knee X-Ray 03/28/24 19:09 IMPRESSION: No acute or subacute periprosthetic fracture, as detailed above. Discharge Plan Discharge Clinical Impression: Injury of meniscus of knee Patient Disposition: Home, Self-Care Condition: Stable Instructions: Antibiotic Form Additional Instructions: Continue to have close follow-up with Orthopedics. Home medications for pain control. If you have any worsening symptoms then please call or return to the emergency department. Patient Language: Austrian Prescriptions: No Action tadalafil 5 mg tablet 5 mg PO HS aspirin [Sami Low Dose Aspirin] 81 mg Tablet,Delayed Release (Dr/Ec) 81 mg PO DAILY ICaps AREDS2 (copper citrate) 250 mg-200 unit -12.5 mg-1 mg Tablet 1 tablet PO Q12H carvedilol [Coreg] 25 mg tablet 25 mg PO Q12H (DME) pen needle, diabetic [BD Ultra-Fine Micro Pen Needle] 32 gauge x 1/4 needle See Rx Instructions .ROUTE .MEDSUPPLY Qty: 200 11RF Rx Instructions: inject five times daily insulin glargine [Basaglar KwikPen U-100 Insulin] 100 unit/mL (3 mL) insulin pen 30 unit subcut Q12H Rx Instructions: morning and hs lisinopril 20 mg tablet 20 mg PO BID lansoprazole 30 mg capsule,delayed release(DR/EC) 30 mg PO BID Qty: 60 3RF metoclopramide HCl [Reglan] 10 mg tablet 10 mg PO BID Qty: 60 3RF (DME) OneTouch Ultra Blue Test Strip Strip See Rx Instructions .ROUTE .MEDSUPPLY Rx Instructions: Test blood sugar three times per day. clonidine 0.2 mg/24 hr patch weekly 1 patch transdermal WEEKLY insulin aspart U-100 [Novolog FlexPen U-100 Insulin] 100 unit/mL (3 mL) insulin pen See Rx Instructions .ROUTE .COMPLEX Rx Instructions: sliding scale tidwm cholecalciferol (vitamin D3) [Vitamin D3] 125 mcg (5,000 unit) Tablet 125 mcg PO QNOON Dialyvite 800-Ultra D 0.8-2,000 mg-unit Tablet 1 tablet PO QNOON furosemide 80 mg Tablet 160 mg PO BID diphenhydramine-acetaminophen [Tylenol PM Extra Strength] 25-500 mg Tablet 2 tablet PO HS diltiazem HCl 120 mg capsule,extended release 12 hr 120 mg PO Q12H atorvastatin 80 mg tablet 80 mg PO HS levothyroxine 112 mcg tablet 112 mcg PO DAILY metolazone 5 mg tablet 5 mg PO DAILY pantoprazole 40 mg tablet,delayed release (DR/EC) 40 mg PO Q12H hydrocodone-acetaminophen 5-325 mg tablet 1 tablet PO Q6H PRN (Reason: pain (scale score 4-6)) gabapentin 300 mg capsule 300 mg PO Q8H fenofibrate nanocrystallized 145 mg tablet 145 mg PO QNOON calcium acetate(phosphat bind) 667 mg capsule 2,001 mg PO TIDWM Dificid 200 mg Tablet 200 mg PO Q12HR Qty: 14 0RF (DME) blood-glucose meter [Try The World Ultra2 Meter] Misc See Rx Instructions .ROUTE .MEDSUPPLY Qty: 1 0RF Rx Instructions: As directed (DME) lancets [OneTouch Delica Lancets] 30 gauge misc See Rx Instructions .ROUTE .MEDSUPPLY Qty: 100 3RF Rx Instructions: As directed hydralazine 10 mg tablet 30 mg PO TID lorazepam [Ativan] 0.5 mg tablet 0.5 mg PO HS PRN (Reason: Anxiety) Qty: 30 0RF Follow-up/Referrals: Jeff Strickland MD [Primary Care Provider] -
[2024-03-28 17:30] VITALS: BP 127/54; PULSE 56; RESP 18; O2SAT 95
[2024-03-28 19:55] VITALS: BP 132/63; PULSE 55; RESP 16; O2SAT 99
== END 2024-03-28 19:57 | disposition home or self-care (01) ==
PROVIDERS: Emergency Provider Emergency Medicine; PCP Family Medicine
DX: S83.8X2A Sprain of other specified parts of left knee, initial encounter (principal); I13.2 Hypertensive heart and chronic kidney disease with heart failure and with stage 5 chronic kidney disease, or end stage renal disease; E11.22 Type 2 diabetes mellitus with diabetic chronic kidney disease; N18.6 End stage renal disease; Z99.2 Dependence on renal dialysis; I50.32 Chronic diastolic (congestive) heart failure; I25.10 Atherosclerotic heart disease of native coronary artery without angina pectoris; E78.5 Hyperlipidemia, unspecified; N40.0 Benign prostatic hyperplasia without lower urinary tract symptoms; K74.60 Unspecified cirrhosis of liver; D64.9 Anemia, unspecified; G47.33 Obstructive sleep apnea (adult) (pediatric); M19.90 Unspecified osteoarthritis, unspecified site; F41.8 Other specified anxiety disorders; Z95.5 Presence of coronary angioplasty implant and graft; Z96.651 Presence of right artificial knee joint; Z86.0100 Personal history of colon polyps, unspecified; Z85.528 Personal history of other malignant neoplasm of kidney; Z98.49 Cataract extraction status, unspecified eye; Z90.89 Acquired absence of other organs; Z90.5 Acquired absence of kidney; Z79.4 Long term (current) use of insulin; Z79.899 Other long term (current) drug therapy; Z79.82 Long term (current) use of aspirin; X50.9XXA Other and unspecified overexertion or strenuous movements or postures, initial encounter
CPT/HCPCS: 72131; 73562; 73700; 99284

== ENCOUNTER 2024-04-02 21:16 | Inpatient (IN) | payer MEDICARE, SELFPAY ==
[2024-04-02] VITALS (18 sets, daily range): BP systolic 152–196; BP diastolic 62–88; PULSE 85–94; RESP 16–26; TEMP 39.4–39.5; O2SAT 94–100
--- NOTE | ~2024-04-02 | CT_ITS ---
History: Altered mental status PROCEDURE: CT head without contrast. COMPARISON: None TECHNIQUE: Axial imaging of the head performed from the skull base to the vertex without IV contrast. Sagittal a nd coronal reformations obtained. DLP: 681 mGy-cm FINDINGS: The ventricles are enlarged. The dilatation of the ventricles is proportional to the degree of sulcal prominence. Decreased attenuation is identified within the periventricular white matter, likely secondary to micr ovascular ischemic disease. There is no mass, mass effect or midline shift. Basal ganglia calcifications are detected. There is no abnormal extra-axial fluid collection or intracranial hemorrhage. Mucoperiosteal thickening within the bilateral maxillary sinuses. Near complete opacification of the bilateral ethmoid and sphenoid sinuses. Congenitally absent frontal sinuses. The mastoid air cells are well aerated. No acute displaced fractures within the overlying cranium. Impression: No acute intracranial hemorrhage or suspicious mass effect. Inflammatory sinus disease. Reviewed, dictated and finalized at location A. OSAL LEAD WRITER Impression: No acute intracranial hemorrhage or suspicious mass effect. Inflammatory sinus disease.
--- NOTE | ~2024-04-02 | XR_ITS ---
CHEST RADIOGRAPH CLINICAL HISTORY: AMS, fever . COMPARISON: 03/13/2024 TECHNIQUE: Single portable view of the chest. FINDINGS The cardiomediastinal silhouette is enlarged, likely secondary to technique. Fixation of the sternum is redemonstrated. Increased interstitial markings are identified bilaterally, findings suggesting mild pulmonary vascul ar congestion. The lungs are otherwise clear. IMPRESSION: Mild pulmonary vascular congestion, without focal infiltrate or effusion. Reviewed, dictated and finalized at location A. LING ASSOCIATE
[2024-04-02] MEDS: ACETAMINOPHEN 500 MG TABLET 1000 MG PO (21:31)
[2024-04-02 22:19] LABS: Basophils Percent Auto 0.1 % (0.2-1.2); Eosinophils Percent Auto 0.2 % (0-4.4); Hematocrit 29.7 % (42.0-52.0); Hemoglobin 9.7 g/dL (14.0-18.0); Immature Granulocyte Absolute 0.26 K/mm3 (0.00-0.031); Immature Granulocyte Percent A 2.3 % (0-0.5); Lymphocytes Percent Auto 6.1 % (18.3-44.2); Mean Corpuscular HGB Conc 32.7 g/dl (32-36); Mean Corpuscular Volume 94.9 fl (80-100); Mean Platelet Volume 10.8 fl (7.4-10.4); Monocytes Absolute Auto 1.4 K/mm3 (0.1-0.6); Monocytes Percent Auto 12.4 % (2.6-8.5); Neutrophils Percent Auto 78.9 % (45.5-73.1); Platelet Count Result 176 k/mm3 (150-375); Red Blood Count 3.13 M/mm3 (4.6-6.20); White Blood Count 11.4 K/mm3 (4.5-10.0)
--- OUTSIDE RECORDS SUMMARY | 2024-04-02 22:22 | XMS_ITS | Encounter Summary ---
Author Organization [facility] Address [facility] [place] [address] Care Team Providers Care Erosion Control Specialist Name Role Phone Deandre Bojorquez MD Unavailable [phone] Jeff Strickland MD Primary Care Provider [phone] Encounter Details Date Type Department Care Team (Late st Contact Info) Description 07/31/[address] [facility] [address] [place] [id number] Alan Davenport MD [facility] [place] [address] Social History Tobacco Use Types Packs/Day Years [...] [facility] MRI [address] [place] [address] Thomas Mendoza MD [address] [facility] 2L [place] [address] 08/04/2024 1:30 PM CDT Office Visit [facility] - Urology [address] [place] [address] Thomas Mendoza MD [address] [facility] 2L [place] [address] documented as of this encounter Procedures Procedure Name Priority Date/Time Associated Diagnosis Comments HOLD HLA SPECIMEN Routine 07/23/2023 2:0 5 PM CDT documented in this encounter Results * HOLD HLA SPECIMEN (07/23/2023 2:05 PM CDT) Hold HLA Specimen 07/31/2023 3:32 PM CDT [facility]) Comment:The Hold HLA specime n has been received into the lab and will be held for 5 years at 4 degrees. Blood BLOOD SPECIMEN / Unknown 07/23/2023 2:05 PM CDT 07/31/2023 2:06 PM CDT Alan Davenport MD LAB - BLOOD BANK ORD ERABLES [facility] [address] [place], [place] [id number] [place] [address] documented in this encounter Visit Diagnoses Not on filedocumented in this encounter Care Teams Erosion Control Specialist Relationship Specialty Start Date End Date Jeff Strickland MD [address] [place] [address] PCP - General 03/05/18 [place] [address] [address] Orthopedic Surgery 03/28/17 documented as of this encounter
--- OUTSIDE RECORDS SUMMARY | 2024-04-02 22:22 | XMS_ITS | Continuity of Care Document ---
Author Organization [employer] [place] Address [address] [place] [address] Phone Care Team Providers Care Linesperson Name Role Phone Olu Payan Unavailable Unavailable [...] Diagnoses Date Provider Providers Copied on Encounter [facility] [address] [place], [place], [id number], tel:[phone] [place] No Information 4 Gladis Olu. [address] [place] [address], [address], [place], [place], [facility], . tel: [phone] [address] [place] [address], [place], [place], [id number], tel:[phone] [place] No Information 4 Genoveva Mcdonald. . Referring Provider: Jeff Strickland [address] [place] [address] [address], [place], [place], [facility]. tel:[phone] [place] [address], [place], [place], [id number], tel:[phone] [place] No Information 4 Gladis Olu. [address] [place] [address], [address], [place], [place], [facility], . tel: [phone] Referring Provider: Yanira Chin [facility] [address], [place], [place], [facility]. tel:[phone] [place] [address], [place], [place], [id number], tel:[phone] [place] No Information 4 Gladis Raines. [address] [place] [address], [address], [place], [place], [facility], . tel: [phone] Referring Provider: Yanira Chin [facility] [address], [place], [address]. tel:[phone], [id number], tel:[phone] [place] No Information 4 Jacinto Fairchild. . Referring Provider: Yanira Chin [facility] [address], [place], [address]. tel:[phone], [place], [place], [id number], [place] tel:[phone] [place] No Information 4 Jacinto Fairchild. . Referring Provider: Jeff Strickland [address] [place] [address] [address], [place], [place], [facility]. tel:[phone], [id number], tel:[phone] [place] No Information 4 Genoveva Mcdonald. . Referring Provider: Jeff Strickland [address] [place] [address] [address], [place], [place], [facility]. tel:[phone], [id number], tel:[phone] [place] No Information 4 Gladis Raines. [address] [facility], [address], [place], [facility], . tel: [phone] Referring Provider: Jeff Strickland [address] [place] [address] [address], [place], [place], [facility]. tel:[phone], [id number], tel:[phone] [place] No Information 0 4 Genoveva Mcdonald. . Referring Provider: Jeff Strickland [address] [place] [address] [address], [place], [place], [facility]. tel:[phone] [address], [place], [id number], [place] tel:[phone] [place] No Information 0 4 Gladis Raines. [address] [facility], [address], [place], [place], [facility], . tel: [phone] Referring Provider: Jeff Strickland [address] [place] [address] [address], [place], [place], [facility]. tel:[phone] Family History Family Member Type Diagnosis Age At Onset No Information Payers Payer name Insurance type Covered green party ID Diego suarez(erensto [place] [id number] Social History Type Description Quantity Date Captured [...]
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
--- OUTSIDE RECORDS SUMMARY | 2024-04-02 22:22 | XMS_ITS | Encounter Summary ---
Author Organization [facility] Address [facility] [place] [address] Care Team Providers Care Dry Molder Name Role Phone Deandre Bojorquez MD Unavailable [phone] Jeff Strickland MD Primary Care Provider [phone] Encounter Details Date Type Department Care Team (Late st Contact Info) Description 11/21/2023 Lab Requisition [facility] MAIN LAB [address] [place] [phone] Alan Davenport MD [facility] [place] [address] Social History Tobacco Use Types Packs/Day Years [...] 08/04/2024 11:30 AM CDT Appointment [facility] MRI [address] [place] [address] Thomas Mendoza MD [address] [facility] 2L [place] [phone] 08/04/2024 1:30 PM CDT Office Visit [facility] - Urology [address] [place] [address] Thomas Mendoza MD [address] [facility] 2L [place] [address] documented as of this encounter Procedures Procedure Name Priority Date/Time Associated Diagnosis Comments HOLD HLA SPECIMEN Routine 11/18/2023 12: 16 PM CDT documented in this encounter Results * HOLD HLA SPECIMEN (11/18/2023 12:16 PM CDT) Hold HLA Specimen 11/21/2023 1:31 PM CDT [facility] Comment:The Hold HLA specime n has been received into the lab and will be held for 5 years at 4 degrees. Blood BLOOD SPECIMEN / Unknown 11/18/2023 12:16 PM CDT 11/21/2023 12:17 PM CDT Alan Davenport MD LAB - BLOOD BANK ORD ERABLES [facility] ([facility] [address] [place] [address], [facility] documented in this encounter Visit Diagnoses Not on filedocumented in this encounter Care Teams Dry Molder Relationship Specialty Start Date End Date Jeff Strickland MD [address] [place] [address] PCP - General 03/05/18 [place] [address] [address] Orthopedic Surgery 03/28/17 documented as of this encounter
--- OUTSIDE RECORDS SUMMARY | 2024-04-02 22:22 | XMS_ITS | Encounter Summary ---
Author Organization [facility] Address [facility] [place] [address] Care Team Providers Care School Physical Therapist Name Role Phone Deandre Bojorquez MD Unavailable [phone] Jeff Strickland MD Primary Care Provider [phone] Encounter Details Date Type Department Care Team (Late st Contact Info) Description 09/30/2023 Lab Requisition [facility] MAIN LAB [address] [place] [phone] Alan Davenport MD [facility] OF [place] [address] Social History Tobacco Use Types Packs/Day Years [...] Info) Description 08/04/2024 11:30 AM CDT Appointment [facility] MRI [address] [place] [address] Thomas Mendoza MD [address] [facility] 2L DIV [place] [phone] 08/04/2024 1:30 PM CDT Office Visit [facility] - Urology [address] [place] [address] Thomas Mendoza MD [address] [facility] 2L DIV [place] [phone] documented as of this encounter Procedures Procedure Name Priority Date/Time Associated Diagnosis Comments HOLD HLA SPECIMEN Routine 09/24/2023 3:2 7 PM CDT documented in this encounter Results * HOLD HLA SPECIMEN (09/24/2023 3:27 PM CDT) Hold HLA Specimen 09/30/2023 4:32 PM CDT [facility] Comment:The Hold HLA specime n has been received into the lab and will be held for 5 years at 4 degrees. Blood BLOOD SPECIMEN / Unknown 09/24/2023 3:27 PM CDT 09/30/2023 3:27 PM CDT Alan Davenport MD LAB - BLOOD BANK ORD ERABLES [facility] ([facility]) [address] [place], [place] [id number] [place] [address] documented in this encounter Visit Diagnoses Not on filedocumented in this encounter Care Teams School Physical Therapist Relationship Specialty Start Date End Date Jeff Strickland MD [address] [place] [address] PCP - General 03/05/18 [place] [address] [address] Orthopedic Surgery 03/28/17 documented as of this encounter
--- OUTSIDE RECORDS SUMMARY | 2024-04-02 22:22 | XMS_ITS | Encounter Summary ---
Author Organization [facility] Address [facility]3 [place] [address] Care Team Providers Care Senior Project Accountant Name Role Phone Deandre Bojorquez MD Unavailable [phone] Jeff Strickland MD Primary Care Provider [phone] Encounter Details Date Type Department Care Team (Late st Contact Info) Description 02/04/2024 Lab Requisition [facility] MAIN LAB [address] [place] [id number] Alan Davenport MD [facility] OF A[place] [address] Social History Tobacco Use Types Packs/Day Years [...] Info) Description 08/04/2024 11:30 AM CDT Appointment [facility] MRI [address] [place] [address] Thomas Mendoza MD [address] [facility] 2L [place] [address] 08/04/2024 1:30 PM CDT Office Visit [facility] - Urology [address] [place] [address] Thomas Mendoza MD [address] [facility] 2L [place] [address] documented as of this encounter Procedures Procedure Name Priority Date/Time Associated Diagnosis Comments HOLD HLA SPECIMEN Routine 01/27/2024 3:2 3 PM HUB ASSOCIATE documented in this encounter Results * HOLD HLA SPECIMEN (01/27/2024 3:23 PM HUB ASSOCIATE) Hold HLA Specimen 02/04/2024 4:31 PM HUB ASSOCIATE [facility] ([facility]) Comment:The Hold HLA specime n has been received into the lab and will be held for 5 years at 4 degrees. Blood BLOOD SPECIMEN / Unknown 01/27/2024 3:23 PM HUB ASSOCIATE 02/04/2024 3:23 PM HUB ASSOCIATE Alan Davenport MD LAB - BLOOD BANK ORD ERABLES [facility] ([facility]) [address] documented in this encounter Visit Diagnoses Not on filedocumented in this encounter Care Teams Senior Project Accountant Relationship Specialty Start Date End Date Jeff Strickland MD [address] [place] [address] PCP - General 03/05/18 [place] [address] [facility] [address] [place] [address] Orthopedic Surgery 03/28/17 documented as of this encounter
--- OUTSIDE RECORDS SUMMARY | 2024-04-02 22:22 | XMS_ITS | Encounter Summary ---
Author Organization [facility] Address [facility] [place] [address] Care Team Providers Care Editor City Name Role Phone Deandre Bojorquez MD Unavailable [phone] Jeff Strickland MD Primary Care Provider [phone] Encounter Details Date Type Department Care Team (Late st Contact Info) Description 10/28/2023 Lab Requisition [facility] MAIN LAB [address] [place] [address] Alan Davenport MD [facility] OF [place] [address] Social History Tobacco Use Types Packs/Day Years [...] AM CDT Appointment [facility] MRI [address] [place] [address] Thomas Mendoza MD [address] [facility] 2L DIV [place] [address] 08/04/2024 1:30 PM CDT Office Visit [facility] - Urology [address] [place] [address] Thomas Mendoza MD [address] [facility] 2L DIV [place] [address] documented as of this encounter Procedures Procedure Name Priority Date/Time Associated Diagnosis Comments HOLD HLA SPECIMEN Routine 10/22/2023 3:5 0 PM CDT documented in this encounter Results * HOLD HLA SPECIMEN (10/22/2023 3:50 PM CDT) Hold HLA Specimen 10/28/2023 5:00 PM CDT [facility] ([facility]) Comment:The Hold HLA specime n has been received into the lab and will be held for 5 years at 4 degrees. Blood BLOOD SPECIMEN / Unknown 10/22/2023 3:50 PM CDT 10/28/2023 3:50 PM CDT Alan Davenport MD LAB - BLOOD BANK ORD ERABLES [facility] ([facility]) [address] [place], [place] [id number] [place] [address] documented in this encounter Visit Diagnoses Not on filedocumented in this encounter Care Teams Editor City Relationship Specialty Start Date End Date Jeff Strickland MD [address] [place] [address] PCP - General 03/05/18 [place] [address] [address] Orthopedic Surgery 03/28/17 documented as of this encounter
--- OUTSIDE RECORDS SUMMARY | 2024-04-02 22:22 | XMS_ITS ---
Author Organization [facility] Address [facility] [place] [address] Care Team Providers Care Carbon Lamp Cleaner Name Role Phone Jeff Strickland MD Primary Care Provider Chan Nicholas MD Unavailable [phone] Alan Mccall MD Unavailable [phone] Pepito Haro MD PhD Unavailable [phone] Solange Guido MD Unavailable Active Problems Problem [...] warrant further PDT. - Patient returned to [facility] for ongoing care and follow up Assessment & Plan (03/09/2024 6:25 PM KIDS ACTIVITIES COACH): Vision OD trends mild improvement, though still [...] We discussed that genetic results would not tar heat exchanger cleaner. Given we have exhausted available treatment without VA improvement, and CME is improving spontaneously, patient can follow in [facility]. Assessment & Plan (10/08/2023 2:51 PM [...] 2 weeks and have patient return to [facility] retina in 4 weeks for repeat DFEx [...] End-stage renal disease on peritoneal dialysis ( [facility]) 04/24/2023 Hypertensive renal failure 04/24/2023 Secondary [...] 03/26/2021 Assessment & Plan (03/26/2021 1:17 PM KIDS ACTIVITIES COACH): Enlarged mild sella turcica on a routine [...] units Assessment & Plan (03/26/2021 1:17 PM KIDS ACTIVITIES COACH): Chronic, uncontrolled, improving A1c today 7.7 % [...] WNL Assessment & Plan (03/26/2021 1:16 PM KIDS ACTIVITIES COACH): Pt currently on Levothyroxine 112 mcg oral [...] 11/18/2018 Assessment & Plan (01/21/2019 2:02 PM KIDS ACTIVITIES COACH): Symptomatic. Will request for esophageal manometry. Continue [...] 06/09/2018 Chronic diastolic CHF (congestive heart failure) ([facility]) 05/18/2018 SHABNAM on CPAP 05/18/2018 Obesity (BMI 30-39.9) 05/18/2018 Stage 5 chronic kidney disease (CMS/HCC) 019 Hyperlipidemia associated with type 2 diabetes eboni gonzalez 12/03/2017 Assessment & Plan (10/30/2021 8:35 PM CDT): On statin therapy Tolerating well Assessment & Plan (03/26/2021 1:16 PM KIDS ACTIVITIES COACH): On statin therapy Tolerating well Last lipid [...] nephrectomy. 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 [id number] Current Oncology Plans No current plan information found. Past Plans No past plan information found. Radiation Treatments * No radiation treatments are documented for this patient in [facility]. Treatments may have been administered in [...] were not included. Kendall Carl 1955 Referring End Worker: Alan Mccall Dialysis Info: NOD GFR 13 Type: Time: (Not currently on dialysis) days Blood Type: O NEG Body mass index is 37.36 kg/m . ALERTS Particleboard Factory Worker: needs to establish Past Medical History: Diagnosis Date Arthropathy RA. Dr Strickland manages. CHF (congestive heart failure) 2 yrs ago Site Technician is Dr. Becerra in [place]. CKD (chronic kidney disease), stage V Community acquired pneumonia 2018 [facility] hospitalized. Diabetes mellitus 20 years. Lantus pen. Esophageal reflux takes med Hypercholesteremia 5-10 yrs meds Hypertension takes meds Hypothyroidism meds 20 years Kidney stones 5-6 years ago had 2 in the same year. Malignancy right kidney 2012 Obstructive sleep apnea 3 years. [facility]. [place]ont remember doctors name Renal cell [...] file Gets together: Not on file Attends amish service: Not on file Active member of [...] is the impression of this social media marketing manager that Kendall Carl has several positive factors for Kidney transplant candidacy from a psychosocial perspective. Patient appears to have appropriate knowledge of illness. Patient has sufficient insurance coverage and stable financial situation for post transplant needs. No concerns regarding substance abuse, legal issues, or mental health needs. Patient has adequate support system and appropriate discharge plan. Plan: vehicle delivery worker to provide supportive services as needed. Patient appears to be a reasonable candidate for transplant from a psychosocial perspective. -Post transplant arrangement forms are needed prior to being listed. -Updated toxicology results needed, per protocol Psychiatric Consult Recommended: No Transplant Heater Installer: Joy Tam LCSW RD: 11/09/2019 BMI= 36.2, [...] use my fitness pal or my food instructional coach) - Consume no more than 2000 calories a day E-mailed pt's a 2000 calorie, CKD meal plan. Items Still Pending: Clinic, colonoscopy Acute pain of left shoulder 01/25/2019 03/25/2023 Non-cardiac chest pain 11/18/201803/25 Assessment & Plan (01/21/2019 2:02 PM KIDS ACTIVITIES COACH): The pain is persistent. The patient described [...] has had extensive cardiac workup by the metal bonding press operator including coronary angiogram. He has chest pain [...] CKD stage 4 secondary to hyp ertension ([facility]) 05/18/2018 03/25/2023 Poor diet 05/18/2018 03/25/2023 Dizziness 05/18/2018 03/25/2023 Type 2 diabetes mellitus wit hout complication ([facility]) 12/03/2017 03/25/2023 Kidney disease 08/06/2017 03/25/2023 Obstructive sleep apnea 10/22/201607/2023
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
--- OUTSIDE RECORDS SUMMARY | 2024-04-02 22:22 | XMS_ITS ---
Author Organization [facility] Address [address] [place] [phone] Care Team Providers Care Digital Photographer Name Role Phone Jeff Strickland MD Primary Care Provider Chan Nicholas MD Unavailable [phone] Alan Mccall MD Unavailable [phone] Pepito Haro MD PhD Unavailable [phone] Solange Guido MD Unavailable Dialysis Access Sites [...] - BOTH EYES Routine 03/09/2024 2:00 PM CLEANER WALL Cystoid macular edema of both eyes POCT [...] day with meals 06/27/19 21 Active vit C,X-Nz-llcfa-lutein- zeaxan 250-90-40-1 mg capsule Take 1 capsule [...] day as needed (nasal irrigation) Active FA-vit Tzmon-K-xtor-vitamin D3 (Dialyvite 800-Ultra D) 0.8-2,000 mg-unit tablet [...] warrant further PDT. - Patient returned to [facility] for ongoing care and follow up Assessment & Plan (03/09/2024 6:25 PM CLEANER WALL): Vision OD trends mild improvement, though still [...] We discussed that genetic results would not drying rack changer. Given we have exhausted available treatment [...] 2 weeks and have patient return to [facility] retina in 4 weeks for [...] 03/26/2021 Assessment & Plan (03/26/2021 1:17 PM CLEANER WALL): Enlarged mild sella turcica on a routine [...] units Assessment & Plan (03/26/2021 1:17 PM CLEANER WALL): Chronic, uncontrolled, improving A1c today 7.7 % [...] WNL Assessment & Plan (03/26/2021 1:16 PM CLEANER WALL): Pt currently on Levothyroxine 112 mcg oral [...] 11/18/2018 Assessment & Plan (01/21/2019 2:02 PM CLEANER WALL): Symptomatic. Will request for esophageal manometry. Continue [...] 06/09/2018 Chronic diastolic CHF (congestive heart failure) ([facility]) 05/18/2018 SHABNAM on CPAP 05/18/2018 Obesity (BMI 30-39.9) 05/18/2018 Stage 5 chronic kidney disease ([facility]) 019 Hyperlipidemia associated with type 2 diabetes eboni gonzalez 12/03/2017 Assessment & Plan (10/30/2021 8:35 PM CDT): On statin therapy Tolerating well Assessment & Plan (03/26/2021 1:16 PM CLEANER WALL): On statin therapy Tolerating well Last lipid [...] nephrectomy. 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 [id number] Immunizations Name Administration Dates Next Due Hep [...] = 0.6 oz pur e alcohol) rarely [employer] Utilities Answer Date Recorded In the past 12 months has [employer], gas, oil, or water [employer] threatened to shut off services in your [...] often do you attend chur ch or tenriism services? Never 03/25/2023 Do you belong to any clubs o r organizations such as temple groups, unions, fraternal or athletic groups, or [...] slept in a jail (including now)? 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 Sex Male 2:23 AM CLEANER WALL Gender Identity Not on file Sexual Orientation [...] OU - Both Eyes (03/09/2024 2:00 PM CLEANER WALL) Central Macular Thickness OS 227 micrometers CONTINUUM Central Macular Thickness OD 479 micrometers CONTINUUM Anatomical Region Laterality Modality Head Optical Coherenc e Tomography Narrative 03/16/2024 12:53 PM CLEANER WALL Right Eye Quality was good. Scan locations [...] was last reviewed 2020. Testing performed by: [facility], [address] [place] [address]., [address] Blood 08/11/2023 7:50 PM CDT 08/11/2023 8:05 PM CDT us Leni Cervantes MD LAB BLOOD ORDERABLES Kenna l Result [facility] [address] [facility] Department [place] [address] * (ABNORMAL) Lipid panel (11/30/2022 [...] revised on 2017. Triglycerides 439(H) <=149 mg/dL [facility] Comment: Interpretive Data Ages < or [...] revised on 2017. HDL 26(L) >=40 mg/dL [facility] Comment: Interpretive Data Ages < or [...] on 2017. LDL, calculated See Comment <=129 [facility] Comment: Unable to calculate LDL due [...] BLOOD ORDERABLES Final Result [facility] [place] [address] from Last 3 Months or Most Recently Relevant to Health Maintenance
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
--- OUTSIDE RECORDS SUMMARY | 2024-04-02 22:23 | XMS_ITS | Encounter Summary ---
Author Organization [facility] Address [facility] [place] [address] Care Team Providers Care Deputy Court Name Role Phone Deandre Bojorquez MD Unavailable [phone] Jeff Strickland MD Primary Care Provider [phone] Encounter Details Date Type Department Care Team (Late st Contact Info) Description 05/29/2023 Lab Requisition [facility] MAIN LAB [address] [place] [phone] Alan Davenport MD [facility] [place] [address] Social History Tobacco Use Types Packs/Day Years [...] 11:30 AM CDT Appointment [facility] MRI [address] [place] [address] Thomas Mendoza MD [address] [facility] [address] [place] [address] 08/04/2024 1:30 PM CDT Office Visit [facility] - Urology [address] [place] [address] Thomas Mendoza MD [address] [facility] [address] [place] [address] documented as of this encounter Procedures Procedure Name Priority Date/Time Associated Diagnosis Comments HOLD HLA SPECIMEN Routine 05/21/2023 9:2 4 AM CDT documented in this encounter Results * HOLD HLA SPECIMEN (05/21/2023 9:24 AM CDT) Hold HLA Specimen 05/29/2023 10:[address] [facility] ([employer]) Comment:The Hold HLA specime n has been received into the lab and will be held for 5 years at 4 degrees. Blood BLOOD SPECIMEN / Unknown 05/21/2023 9:24 AM CDT 05/29/2023 9:24 AM CDT Alan Davenport MD LAB - BLOOD BANK ORD ERABLES [facility] ([employer]) [address] [place], [place] [address] [place] [address] documented in this encounter Visit Diagnoses Not on filedocumented in this encounter Care Teams Deputy Court Relationship Specialty Start Date End Date Jeff Strickland MD [address] [place] [address] PCP - General 03/05/18 [place] [address] [address] Orthopedic Surgery 03/28/17 documented as of this encounter
--- OUTSIDE RECORDS SUMMARY | 2024-04-02 22:23 | XMS_ITS ---
Author Organization [facility] Address [address] [place] [address] Care Team Providers Care Agricultural Chemicals Inspector Name Role Phone Deandre Bojorquez MD Unavailable [phone] Jeff Strickland MD Primary Care Provider Transplant Episode Kidney Candidate [facility] ([place], [place]) - [facility] Center waitlisted on 05/06/2022 Marked as Inactive on 12/19/2022 Reason: Temporarily too Sick Kidney CoordinatorSavanna Edwards RN Phone: N/A Fax: N/A Email: N/A Scores Score Value Updated Exceptions/Reas ons CPRA Not available EPTS (Calc) 95 04/02/2024 [place] Organ Diagnosis Organ Primary Contributory Kidney Diabetes Mellitus - Type II Hype rtensive Nephrosclerosis Care Team Name Role Phone Fax Email Savanna Edwards RN Kidney Coordinator N/A N/A N/A Alan Mccall MD Referring Physician N/A N/A N/A Anjali Mott LMSW Refrigeration Brazer/Solderer N/A N/A N/A Millie Lindquist Crop Farm Helper N/A N/A N/A Events Pre-Transplant Referred: 12/05/2021 Evaluation began: 12/13/2021 Committee: 05/02/2022 UNOS qualified: 01/17/2020 Center waitlisted: 05/06/2022 Dialysis History Dialysis History Start End Type Comments Center 01/17/2020 Peritoneal [facility] D[facility] Information Center Phone Fax Address [facility] [phone] [address] [place] [phone]
--- OUTSIDE RECORDS SUMMARY | 2024-04-02 22:23 | XMS_ITS | Clinical Summary ---
Author Organization [facility] Address [address], [place] [address] Phone Care Team Providers Care Aircraft Electronics Technical Officer Name Role Phone Jeff Strickland MD Primary Care Provider [phone] Allergies No known active allergies Medications Medication [...] tablet 3 11/29/2019 Active Continuous Blood Gluc Eyelet Maker (FreeStyle Em Kanab) device 1 each daily 12/01/2019 Active Continuous Blood Gluc Sensor (FreeStyle Em Sensor System) misc 1 each once every 2 weeks 12/01/2019 Active Lancets (OneTouch Delica Plus [id number]) misc OneTouch Delica Plus Lancet 33 gauge [...] 11/10/2019 Overview (12/17/2019): Kendall Carl 1955 Referring Lab Instructor: Alan Mccall Dialysis Info: NOD GFR 13 Type: Time: (Not currently on dialysis) days Blood Type: O NEG Body mass index is 37.36 kg/m . ALERTS Sweetbread Trimmer: needs to establish Past Medical History: Diagnosis Date Arthropathy RA. Dr Strickland manages. CHF (congestive heart failure) 2 yrs ago Gold Burnisher is Dr. Becerra in [place]. CKD (chronic kidney disease), stage V Community acquired pneumonia 2018 [facility] hospitalized. Diabetes mellitus 20 years. Lantus pen. Esophageal reflux takes med Hypercholesteremia 5-10 yrs meds Hypertension takes meds Hypothyroidism meds 20 years Kidney stones 5-6 years ago had 2 in the same year. Malignancy right kidney 2012 Obstructive sleep apnea 3 years. [facility]. Angela remember doctors name Renal cell [...] is the impression of this social worker assistant that Kendall Carl has several positive factors for Kidney transplant candidacy from a psychosocial perspective. Patient appears to have appropriate knowledge of illness. Patient has sufficient insurance coverage and stable financial situation for post transplant needs. No concerns regarding substance abuse, legal issues, or mental health needs. Patient has adequate support system and appropriate discharge plan. Plan: industrial workers to provide supportive services as needed. Patient appears to be a reasonable candidate for transplant from a psychosocial perspective. -Post transplant arrangement forms are needed prior to being listed. -Updated toxicology results needed, per protocol Psychiatric Consult Recommended: No Transplant Applied Behavior Specialist: Joy Tam LCSW RD: 11/09/2019 BMI= 36.2, [...] use my fitness pal or my food living coach) - Consume no more than 2000 [...] nephrectomy. 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 [id number] Immunizations Name Administration Dates Next Due Influenza [...] (#1) 2023 9, 04/10/2016, 04/09/2016 Care Teams Aircraft Electronics Technical Officer Relationship Specialty Start Date End Date Jeff Strickland MD [address] [facility] [address] [place] [address] PCP - General Internal Medicine 07/15/18
--- OUTSIDE RECORDS SUMMARY | 2024-04-02 22:23 | XMS_ITS | Continuity of Care Document ---
Author Organization [facility] Address [address] [place] [address] Phone Care Team Providers Care Manager Molecular Name Role Phone Kee Rodriguez Unavailable Unavailable Procedures Procedure Date Office/outpatient Visit, Est Eye Exam Established Pt Advance Directives Directive Yes / No Effective Date File Name No Information Encounters Encounter Description Practice Location Reason(s) For Visit Diagnoses Date Provider Providers Copied on Encounter Office/outpat ient Visit, Est [facility], [address] [place] [address] [address], [place], [place], [id number], tel:[phone] SEC [facility] No Information Mar-0 2-201 0 Krishnasamy Kee. [address] [facility] [place] [address], [place], [place], [facility], [place]. tel:[phone] [facility], [address] [place] [address] [address], [place], [place], [id number], tel:[phone] SEC [facility] No Information Nhan-3 0-200 7 David OD Freddy. [address], [place], [place], [facility], [place]. tel:[phone] Family History Family Member Type Diagnosis Age [...]
--- OUTSIDE RECORDS SUMMARY | 2024-04-02 22:23 | XMS_ITS ---
Author Organization [facility] Address [address] [place] [address] [place] [address] Care Team Providers Care Lead Quality Technician Name Role Phone DONNIE WOOD MD Primary Care Provider Lance Sergio Trujillo Unavailable [phone] ALLERGIES No Known Allergies REASON FOR VISIT [...] Localized, primary osteoarthritis of the shoulder region ([id number]) VITAL SIGNS Blood pressure systolic 112 mm Hg 03/03/19 25 Blood pressure diastolic 62 mm Hg 025 Heart Rate 59 /min 03/03/2024 Respiratory Rate 18 /min 03/03/2024 Height 5 ft 9 in in 03/03/2024 Weight 229 lbs 03/03/2024 BMI 33.81 kg/m2 03/03/2024 Encounters Encounter Location Date Provider Diagnosis [facility] [address] [place] [id number] 03/03/2024 Sergio Stynowick Pain in left knee M25.562 ; Primary osteoarthritis, unspecified shoulder M19.019 ; Other chest pain R07.89 ; Radiculopathy, lumbar region M54.16 ; Other intervertebral disc degeneration, lumbar region M51.36 ; 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 John's, [place]'s and [place]'s are positive bilaterally. There is [...] and Follow-up: Follow-up Plan doclana wendy:: Yes [facility] Quality 2020: MIPS Documented:: Compliant
--- OUTSIDE RECORDS SUMMARY | 2024-04-02 22:23 | XMS_ITS | Encounter Summary ---
Author Organization [facility] Address [facility] [place] [address] Care Team Providers Care Slope Runner Name Role Phone Deandre Bojorquez MD Unavailable [phone] Jeff Strickland MD Primary Care Provider [phone] Encounter Details Date Type Department Care Team (Late st Contact Info) Description 03/12/2024 Lab Requisition [facility] [address] [place] [id number] Alan Davenport MD [facility] [place] [address] Social History Tobacco Use Types Packs/Day Years [...] 11:30 AM CDT Appointment [facility] [address] [place] [address] Thomas Mendoza MD [address] [facility] 2L DIV [place] [phone] 08/04/2024 1:30 PM CDT Office Visit [facility] Urology [address] [place] [address] Thomas Mendoza MD [address] [facility] 2L DIV [place] [phone] documented as of this encounter Procedures Procedure Name Priority Date/Time Associated Diagnosis Comments HOLD HLA SPECIMEN Routine 03/05/2024 1:4 0 PM MANAGER RESEARCH AND DEVELOPMENT documented in this encounter Results * HOLD HLA SPECIMEN (03/05/2024 1:40 PM MANAGER RESEARCH AND DEVELOPMENT) Hold HLA Specimen 03/12/2024 3:00 PM MANAGER RESEARCH AND DEVELOPMENT [facility] ([facility]) Comment:The Hold HLA specime n has been received into the lab and will be held for 5 years at 4 degrees. Blood BLOOD SPECIMEN / Unknown 03/05/2024 1:40 PM MANAGER RESEARCH AND DEVELOPMENT 03/12/2024 1:40 PM MANAGER RESEARCH AND DEVELOPMENT Alan Davenport MD LAB - BLOOD BANK ORD ERABLES [facility] ([facility]) [address] documented in this encounter Visit Diagnoses Not on filedocumented in this encounter Care Teams Slope Runner Relationship Specialty Start Date End Date Jeff Strickland MD [address] [place] [address] PCP - General 03/05/18 [place] [address] [address] [place] [id number] Orthopedic Surgery 03/28/17 documented as of this encounter
--- OUTSIDE RECORDS SUMMARY | 2024-04-02 22:23 | XMS_ITS | Patient Health Summary ---
Author Organization [facility] Address [address] [place] [address] Care Team Providers Care Senior Executive Compensation Analyst Name Role Phone Deandre Bojorquez MD Unavailable [phone] Jeff Strickland MD Primary Care Provider [phone] Note from [facility],non-owned Affiliates and Associated Physician Practices is amultiple site organization consisting of ambulatory clinics and hospital sitesin [place], [place], [place] and [place]. This disclosure is being madepursuant to the Care Everywhere program and may not contain all information available regarding this patient. Last updated 17.[facility] Allergies * Oxycodone(Psychiatric) -Medium Criticality Medications * [...] daily 3 refills by 01/07/2025 * B Iepffeb-T-Ghern Acid (Dialyvite 800) 0.8 MG 1 tablet Orally Once a day for 30 day(s) Active Problems Problem Noted Date Diagnosed Date Chronic diastolic heart failure 01/12/2024 History of renal cell carcinoma 01/12/2024 Hypertriglyceridemia 05/01/2023 Hypertension 05/01/2023 Anemia due to end stage renal disease 04/24/2023 Atherosclerosis of coronary artery without angin a pectoris 04/24/2023 End-stage renal disease on peritoneal dialysis 0 04/24/2023 Hypertensive renal failure 04/24/2023 Hypothyroidism 12/04/2020 Type 2 diabetes mellitus 12/04/2020 CAD in grand ronde tribes artery 08/04/2020 Pre-transplant evaluation for kidney transplant 11/10/2019 Presence of right artificial knee joint 03/28/19 18 Immunizations * CovKnomo primary monovalent 12+ yr 0.3mL Purple cap(Given [...] Comments Blood Pressure 134/74 03/03/2024 12:47 PM FITTING ROOM CHECKER Pulse 65 03/03/2024 12:47 PM FITTING ROOM CHECKER Temperature 36.2 C (97.2 F) 08/06/2023 1:56 PM CDT Respiratory Rate 18 01/14/2022 1:01 PM FITTING ROOM CHECKER Oxygen Saturation 96% 03/03/2024 12:47 PM FITTING ROOM CHECKER Inhaled Oxygen Concentration - - Weight 119.7 kg (264 lb) 03/03/2024 12:47 PM FITTING ROOM CHECKER Height 172.7 cm (5' 8 ) 03/03/2024 12:47 PM FITTING ROOM CHECKER Body Mass Index 40.14 03/03/2024 12:47 PM FITTING ROOM CHECKER Medical Devices Implanted Type Area Manager Management Device Identifier Shelf Expiration Date Model / Serial / Lot Sys Cor Stent Xience Srr 3mm 18mm Rap Ex Implanted:Qty: 1 on 08/04/2020 by Javier Lan MD at [facility] Stent Coronary [employer] 06/19/2022 [id number] Description:STENT Sys Cor Stent Xience Srr 3mm 8mm Rap Ex Implanted:Qty: 1 on 08/04/2020 by Javier Lan MD at [facility] Stent Coronary [employer] 09/03/2021 [id number] Description:stent Procedures * HOLD HLA SPECIMEN(Performed 03/25/2024) * HOLD HLA SPECIMEN(Performed 03/05/2024) * HOLD [...] unspecified vessel or lesion type, unspecified whether grand ronde tribes or transplanted heart (HCC), Congestive heart failure, unspecified HF chronicity, unspecified heart failure type (HCC), Type 2 diabetes mellitus with chronic kidney disease on chronic dialysis, without long-term current use of insulin (HCC), Hypertension, unspecified type * STRESS TEST(Performed 11/06/2022) Performed for Pre-kidney transplant, listed, Coronary artery disease with angina pectoris, unspecified vessel or lesion type, unspecified whether [place] tribes or transplanted heart (HCC), Congestive heart failure, unspecified HF chronicity, unspecified heart failure type (HCC), Type 2 diabetes mellitus with chronic kidney disease on chronic dialysis, without long-term current use of insulin (HCC), Hypertension, unspecified type * ECHO COMPLETE(Performed 11/06/2022) Performed for Pre-kidney transplant, listed, Coronary artery disease with angina pectoris, unspecified vessel or lesion type, unspecified whether [place] tribes or transplanted heart (HCC), Congestive heart failure, [...] 11/07/2021) Performed for Coronary artery disease involving grand ronde tribes coronary artery of grand ronde tribes heart without angina pectoris * IR CENTRAL [...] 08/04/2020) Performed for Coronary artery disease involving grand ronde tribes coronary artery of grand r[place] tribes heart with angina pectoris (HCC), Pre-transplant evaluation [...] 06/15/2020) Performed for Coronary artery disease involving grand ronde tribes coronary artery of grand ronde tribes heart without angina pectoris * LIPID PROFILE(Performed 06/15/2020) Performed for Coronary artery disease involving grand ronde tribes coronary artery of grand ronde tribes heart without angina pectoris * CT KIDNEYS [...] right knee Results * HOLD HLA SPECIMEN (03/25/2024 2:51 PM FITTING ROOM CHECKER) Only the most recent of10 resultswithin the time period is included. Hold HLA Specimen 03/30/2024 4:01 PM FITTING ROOM CHECKER [facility] Comment:The Hold HLA specime n has been received into the lab and will be held for 5 years at 4 degrees. Blood BLOOD SPECIMEN / Unknown 03/25/2024 2:51 PM FITTING ROOM CHECKER 03/30/2024 2:51 PM FITTING ROOM CHECKER Alan Davenport MD LAB - BLOOD BANK ORD ERABLES [facility] [address] [place] [address] * EKG 12-LEAD (10/14/2023 11:24 AM CDT) Ventricular Rate 53 BPM [facility] Atrial Rate 53 BPM [facility] P-R Interval 170 ms [facility] QRS Duration ms 96 ms [facility] Q-T Interval ms 534 ms [facility] QTC Calculation (Bezet) 501 ms [facility] Calculated P Pablo 20 degrees [facility] Calculated R Pablo -50 degrees [facility] Calculated T Pablo -32 degrees [facility] Interpretation EKG SINUS BRADYCARDIA INCOMPLETE RIGHT BUNDLE BRANCH BLOCK LEFT ANTERIOR FASCICULAR BLOCK SEPTAL INFARCT , AGE UNDETERMINED PROLONGED QT ABNORMAL ECG NO PREVIOUS ECGS AVAILABLE Confirmed by SHANELL CAICEDO MD ([id number]) on 10/16/2023 10:56:56 AM [facility] 10/14/2023 11:2 4 AM CDT 10/16/2023 10:56 AM CDT Letha Christine SHALE MINER-FLAVIA ECG ORDERABLES Performing Organization Address City/[facility]/ZIP Co de Phone Number PATIENCE MUSE * MRI ABDOMEN WO CONTRAST [...] - 1.20 mg/dL 07/17/2023 10:59 AM CDT [facility] eGFR 16(L) >=90 mL/min/1.7 3 m2 07/17/2023 10:59 AM CDT [facility] Blood BLOOD SPECIMEN / Unknown 07/17/2023 10:44 AM CDT 07/17/2023 10:59 AM CDT Martinez Sandhu MD LAB - POINT OF CARE ORDERABLES [facility] [address] [place] [address] * US RETROPERITONEAL COMPLETE (05/21/2023 12:05 PM [...] component. Report dictated by Romel Hendricks MD, (residential plumber). > Dictated by Romel Hendricks MD (High School English Teacher) 05/21/2023 11:22 AM I, Lizandro Diaz MD have personally reviewed and interpreted this examination/study. > Interpreting Provider: Lizandro Diaz MD on 05/21/2023 12:34 PM Narrative 05/21/2023 12:34 PM CDT PROCEDURE: US RETROPERITONEAL COMPLETE, DATE/TIME OF EXAM: 05/21/2023 12:05 PM, LOCATION [facility] INDICATION: Z76.82: Pre-kidney transplant, listed Q61.02: Multiple [...] COMPLETE, DATE/TIME OF EXAM: 2:05 PM, LOCATION [facility] INDICATION: Z76.82: Pre-kidney transplant, listed Q61.02: Multiple [...] component. Report dictated by Romel Hendricks MD, (residential plumber). > Dictated by Romel Hendricks MD (High School English Teacher) 05/21/2023 11:22 AM I, Lizandro Diaz MD [...] above. > Dictated by Neeraj Johnson MD (High School English Teacher) 11/06/2022 12:04 PM I, Ariel Araya MD [...] unspecified vessel or lesion type, unspecified whether grand ronde tribes or transplanted heart ([facility]/HCC) I50.9: Congestive heart failure, unspecified HF chronicity, [...] pectoris, unspecifiedvessel or lesion type, unspecified whether [place] tribes or transplanted heart([facility]) I50.9: Congestive heart failure, unspecified HF chronicity, unspecified heart failure type ([facility]) E11.22: Type 2 diabetes mellitus with [...] above. > Dictated by Neeraj Johnson MD (High School English Teacher) 11/06/2022 12:04PM I, Ariel Araya MD have personally reviewed and interpreted this examination/study. > Interpreting Provider: Ariel Araya MD on 11/06/2022 4:[address] MD NM ORDERABLES * STRESS TEST (11/06/2022 11:27 AM CDT) BSA 2.34 m2 [facility] Predicted METS 7.4 METS [facility] Target HR 131 bpm [facility] Max Age Predicted HR 154 bpm [facility] Baseline HR 56 bpm [facility] Stress peak HR 71 bpm [facility] HR Percent 46 % [facility] Baseline BP 153/70 mmHg [facility] Post peak BP 153/70 mmHg [facility] Target HR Percent 54 % [facility] Anatomical Region Laterality Modality Cardiac Electrop [...] per NM tech, pt c/o dyspnea, VSS 11313- Test complete, VSS, symptoms resolved. IV dc'd. [...] * ECHO COMPLETE (11/06/2022 9:51 AM CDT) [facility] Signature BSA 2.6768390 m2 [facility] CV FUJ I PACS LV [...] PACS RVOT VTI 13.78 cm [facility] CV FUJ I PACS TV S' dontrell 234.54 [facility] CV FUJ I PACS TAPSE 2.378 1.7 cm [facility] CV FUJ I PACS RVOT pk dontrell 0.69 m/s [facility] CV F UJI PACS RA area 19.688 cm2 [facility] CV FUJ I PACS AV mn grad 4 mmHg SSM CV FU JI PACS AV pk grad 7 mmHg [facility]SM CV FU JI PACS AV mn dontrell 0.87 m/s SSM CV FUJ I PACS AV pk dontrell 1.28 m/s SSM CV FUJ I PACS AV VTI 28.508 cm SSM CV FUJ I PACS LVOT pk grad 4.311 mmHg [...] Index 66 ml/m2 [facility] CV FUJI PACS [id number] 7.967 cm SSM CV FUJ I PACS [id number] 8.115 cm SSM CV FUJ I PACS [...] Atrium: Left atrium is severely dilated. Scott ARAYA CUPID * HLA ANTIBODY SCREEN LUM CLASS 2 SAB (10/28/2022 2:38 PM CDT) Only the most recent of6 resultswithin the time period is included. % PRA 0 11/13/2022 11:59 AM CDT [facility] ([facility]) Class 2 LUM SAB Moderate Risk DQB1*06:01, 06:03 11/13/2022 11:59 AM CDT [facility] ([facility]) Class 2 SAB Test Date [id number] 11/13/2022 11:59 AM CDT [facility] ([facility]) Comment: This test was developed and its performance characteristics determined by the [facility]. It has not been cleared [...] high complexity clinical laboratory testing. CLIA ID# [id number] Performed at: [facility], [address] [place] [id number] Risk Control Director:Dr. Juno Ledesma, PhD, Blood BLOOD SPECIMEN / Unknown No Charge Blood Draw / Unknown 10/28/2022 2:38 PM CDT 11/07/2022 2:38 PM CDT Alan Davenport MD LAB - BLOOD BANK ORD ERABLES [facility] ([facility]) [address] [place] [id number] [place] [address] * HLA ANTIBODY SCREEN LUM CLASS 1 SAB (10/28/2022 2:38 PM CDT) Only the most recent of6 resultswithin the time period is included. % PRA 0 11/13/2022 11:59 AM CDT [facility] ([facility]) Class 1 SAB Test Date [id number] 11/13/2022 11:59 AM CDT [facility] ([facility]) Comment: This test was developed and its performance characteristics determined by the [facility]. It has not been cleared [...] high complexity clinical laboratory testing. CLIA ID# [id number] Performed at: [facility], [address] [place] [phone] Risk Control Director:Dr. Juno Ledesma, PhD, Blood BLOOD SPECIMEN / Unknown No Charge Blood Draw / Unknown 10/28/2022 2:38 PM CDT 11/07/2022 2:38 PM CDT Alan Davenport MD LAB - BLOOD BANK ORD ERABLES [facility] ([facility]) [address] [place] [address] * OXALATE BLOOD (03/04/2022 11:04 AM FITTING ROOM CHECKER) Oxalate <2.0 <=2.0 umol/L 03/09/2022 6:49 PM FITTING ROOM CHECKER [employer] ([facility]) Comment: INTERPRETIVE INFORMATION: Oxalate, Plasma This test was developed and its performance characteristics determined by [employer]. It has not been cleared or approved by the US Food and Drug Administration. This test was performed in a CLIA certified laboratory and is intended for clinical purposes. Performed By: [facility] [address] [place] [id number] Burr Grinder: Mk Egan MD, PhD Blood BLOOD SPECIMEN / Unknown Lab Venipuncture / Unknown 03/04/2022 11:04 AM FITTING ROOM CHECKER 03/04/2022 11:08 AM FITTING ROOM CHECKER Scott Lane MD LAB - CHEMISTR Y ORDERABLES [facility]) [address] [place] [address], [facility] * MRI ABDOMEN WWO CONTRAST (03/04/2022 10:47 AM FITTING ROOM CHECKER) Anatomical Region Laterality Modality Abdomen Magnetic Resonan ce 03/04/2022 11:0 9 AM FITTING ROOM CHECKER Impressions 03/04/2022 1:36 PM FITTING ROOM CHECKER Impression: 1.Focally decreased signal on opposed-phase images [...] hemorrhagic. Report dictated by Ashkan Almeida MD (residential plumber). I, Watson Phillips MD have personally reviewed and interpreted this examination/study. > Interpreting Provider: Watson Phillips MD on 03/04/2022 1:36 PM Narrative 03/04/2022 1:36 PM FITTING ROOM CHECKER PROCEDURE: MRI ABDOMEN WWO CONTRAST, DATE/TIME OF EXAM: 03/04/2022 10:47 AM, LOCATION [facility] INDICATION: Z01.818: Pre-transplant evaluation for kidney transplant [...] CONTRAST, DATE/TIME OF EXAM: 0:47 AM, LOCATION [facility] INDICATION: Z01.818: Pre-transplant evaluation for kidney transplant [...] hemorrhagic. Report dictated by Ashkan Almeida MD (residential plumber). I, Watson Phillips MD have personally reviewed and interpreted this examination/study. > Interpreting Provider: Watson Phillips MD on 03/04/2022 1:[address] MD MR ORDERABLES * CT CHEST WO CONTRAST (03/04/2022 10:43 AM FITTING ROOM CHECKER) Only the most recent of2 resultswithin the time period is included. Anatomical Region Laterality Modality Chest Computed Tomogra phy 03/04/2022 11:1 0 AM FITTING ROOM CHECKER Impressions 03/04/2022 12:25 PM FITTING ROOM CHECKER Impression: 1.Unchanged left lower lobe pulmonary nodules. [...] nature. > Dictated by Luis Muñoz DO (residential plumber). I, Wilfrid Fonseca have personally reviewed and interpreted this examination/study. > Interpreting Provider: Wilfrid Fonseca on 03/04/2022 12:25 PM Narrative 03/04/2022 12:25 PM FITTING ROOM CHECKER PROCEDURE: CT CHEST WO CONTRAST, DATE/TIME OF EXAM: 03/04/2022 10:43 AM, LOCATION [facility] INDICATION: Z01.818: Pre-transplant evaluation for kidney transplant [...] CONTRAST, DATE/TIME OF EXAM: 03/04/2022 10:43AM, LOCATION [facility] INDICATION: Z01.818: Pre-transplant evaluation for kidney transplant [...] nature. > Dictated by Luis Muñoz DO (residential plumber). Wilfrid Leigh have personally reviewed and interpreted this examination/study. > Interpreting Provider: Wilfrid Fonseca on 03/04/2022 12:[address] ORDERABLES * XR CHEST PA AND LATERAL (01/14/2022 10:12 AM FITTING ROOM CHECKER) Only the most recent of2 resultswithin the time period is included. Anatomical Region Laterality Modality Chest Radiographic Pastora ging 01/14/2022 10:2 3 AM FITTING ROOM CHECKER Narrative 01/14/2022 2:50 PM FITTING ROOM CHECKER PROCEDURE: XR CHEST 2VW, DATE/TIME OF EXAM: 01/14/2022 10:12 AM, LOCATION [facility] INDICATION: Z01.818: Pre-transplant evaluation for kidney transplant [...] hyperostosis. Report dictated by Ruddy Trivedi MD (residential plumber). Terry Leigh MD have personally reviewed and interpreted this examination/study. > Interpreting Provider: Terry De Leon MD on 01/14/2022 2:50 PM Procedure Note Tosha De Leon MD - 01/14/2022 PROCEDURE: XR CHEST 2VW, DATE/TIME OF EXAM: 01/14/2022 10:12 AM,LOCATION [facility] INDICATION: Z01.818: Pre-transplant evaluation for kidney transplant [...] hyperostosis. Report dictated by Ruddy Trivedi MD (residential plumber). ITerry MD have personally reviewed and interpreted this examination/study. > Interpreting Provider: Terry De Leon MD on 01/14/2022 2:50 PM Marbin Flores MD DIAGNOSTIC IMAGING O RDERABLES * (ABNORMAL) URINALYSIS COMPLETE W MICROSCOPIC (01/14/2022 9:59 AM FITTING ROOM CHECKER) Only the most recent of2 resultswithin the time period is included. Color UA Straw Straw, Yellow 01/14/2022 11:31 AM [facility] Clarity UA Clear Clear 01/14/2022 11:31 AM [facility] Specific [place] UA 1.025 1.005 - 1.030 01/14/2022 11:31 [...] Unknown Collection / Unknown 01/14/2022 9:59 AM FITTING ROOM CHECKER 01/14/2022 10:47 AM FITTING ROOM CHECKER Narrative [facility] - 01/14/2022 11:31 AM FITTING ROOM CHECKER Marbin Flores MD LAB - URINALYSIS ORD ERABLES Performing Organization Address City/[facility]/ZIP Co de Phone Number [address] [address], [place] [phone] * PROTEIN URINE RANDOM QUANTITATIVE (01/14/2022 9:59 AM FITTING ROOM CHECKER) Only the most recent of2 resultswithin the time period is included. Protein Urine 365 Not Established mg/dL 01/14/2022 11:47 AM [facility] Comment:Result obtained by seema christianson. Urine URINE SPECIMEN OBTAINED BY CLEAN CATCH PROCEDURE / Unknown Collection / Unknown 01/14/2022 9:59 AM FITTING ROOM CHECKER 01/14/2022 10:47 AM FITTING ROOM CHECKER Marbin Flores MD LAB - URINE CHEMISTR Y ORDERABLES Performing Organization Address City/[facility]/ZIP Co de Phone Number [address] [address], [place] [phone] * CREATININE URINE RANDOM (01/14/2022 9:59 AM FITTING ROOM CHECKER) Only the most recent of2 resultswithin the time period is included. Creatinine Urine 81 Not Established mg/dL 01/14/2022 11:20 AM FITTING ROOM CHECKER [facility] Urine URINE SPECIMEN OBTAINED BY CLEAN CATCH PROCEDURE / Unknown Collection / Unknown 01/14/2022 9:59 AM FITTING ROOM CHECKER 01/14/2022 10:47 AM FITTING ROOM CHECKER Marbin Flores MD LAB - URINE CHEMISTR Y ORDERABLES Performing Organization Address City/[facility]/ZIP Co de Phone Number [address] [address], [facility] [phone] * CANNABINOID SCREEN BLOOD (01/14/2022 9:54 AM FITTING ROOM CHECKER) Only the most recent of2 resultswithin the time period is included. Marijuana Metabolites Negative 01/19/2022 8:07 PM FITTING ROOM CHECKER [facility] ([facility]) Comment:REFERENCE RANGE: thr shold: 5 ng/mL Specimen Type Comment 01/19/2022 8:07 PM FITTING ROOM CHECKER [facility] ([facility]) Comment: WHOLE BLOOD This specimen was screened [...] Lab Venipuncture / Unknown 01/14/2022 9:54 AM FITTING ROOM CHECKER 01/14/2022 10:49 AM FITTING ROOM CHECKER Narrative [facility] ([facility]) - 01/19/2022 8:07 PM FITTING ROOM CHECKER Performed at: 01 - [facility] [address] [place] [id number] Risk Control Director: Ev Camarena [facility], Phone: [phone] Marbin Flores MD LAB - CHEMISTRY ORDE RABLES [facility] ([facility]) [address] [place], [place] [id number] * COCAINE METABOLITE QUANT (01/14/2022 9:54 AM FITTING ROOM CHECKER) Only the most recent of2 resultswithin the time period is included. Pathologist [facility] Cocaine and Metabolite Blood <20 ng/mL 01/18/2022 12:32 AM FITTING ROOM CHECKER [facility] ([facility]) Comment: INTERPRETIVE INFORMATION: Cocaine Metabolite, Serum or [...] developed and its performance characteristics determined by [employer]. It has not been cleared or approved by the US Food and Drug Administration. This test was performed in a CLIA certified laboratory and is intended for clinical purposes. Performed By: [facility] [employer] [address] [place] [address] Burr Grinder: Mk Egan MD, PhD Blood BLOOD SPECIMEN / Unknown Lab Venipuncture / Unknown 01/14/2022 9:54 AM FITTING ROOM CHECKER 01/14/2022 10:48 AM FITTING ROOM CHECKER Marbin Flores MD LAB - CHEMISTRY PK ZENG [facility] Organization Address City/State/ZIP Co de Phone Number [facility] [employer] ([facility]) [address] [place] [address] * SYPHILIS ANTIBODY CASCADING REFLEX (01/14/2022 9:54 AM FITTING ROOM CHECKER) Only the most recent of2 resultswithin the time period is included. Pathologist [facility] Treponema pallidum Antibody Non-react sylvie Non-react sylvie 01/14/2022 11:52 AM FITTING ROOM CHECKER [facility] Comment: No Laboratory evidence of syphilis infection. Note: Circulating antibodies may be low or undetectable in early infection. If recent exposure is suspected, re-draw sample in 2-4 weeks and repeat testing. Blood BLOOD SPECIMEN / Unknown Lab Venipuncture / Unknown 01/14/2022 9:54 AM FITTING ROOM CHECKER 01/14/2022 10:48 AM FITTING ROOM CHECKER Marbin Flores MD LAB - SEROLOGY ORDER [facility]HEL[facility] [address] [place] [address], [facility] [phone] * AMPHETAMINE BLOOD CONFIRMATION (01/14/2022 9:54 AM FITTING ROOM CHECKER) Only the most recent of2 resultswithin the time period is included. Amphetamines Confirmation <20 ng/mL 2022 12:55 AM FITTING ROOM CHECKER [employer] ([facility]) Comment: INTERPRETIVE INFORMATION: Amphetamines, Serum or Plasma, [...] developed and its performance characteristics determined by [employer]. It has not been cleared or approved by the US Food and Drug Administration. This test was performed in a CLIA certified laboratory and is intended for clinical purposes. Methamphetamine Confirmation <20 ng/mL 2022 12:55 AM [facility] [employer]) MDA Confirmation <20 ng/mL 01/21/20 22 12:55 AM [facility] [employer]) MDMA Confirm <20 ng/mL 2022 12:55 AM FITTING ROOM CHECKER [employer] [facility]) MDEA Confirmation <20 ng/mL 022 12:55 AM FITTING ROOM CHECKER [facility]) Comment: Performed By: [facility] [address] [place] [id number] Burr Grinder: Mk Egan MD, PhD Blood BLOOD SPECIMEN / Unknown Lab Venipuncture / Unknown 01/14/2022 9:54 AM FITTING ROOM CHECKER 01/14/2022 10:48 AM FITTING ROOM CHECKER Marbin Flores MD LAB - CHEMISTRY [facility]DE [facility] [employer] [facility]) [address] [place] [address], [facility] * QUANTIFERON-TB GOLD PLUS 4-TUBE (01/14/2022 9:54 AM FITTING ROOM CHECKER) Only the most recent of2 resultswithin the time period is included. QuantiFERON NIL 0.02 IU/mL 1:41 AM FITTING ROOM CHECKER [facility]) Comment: Performed By: [facility] [address] [place] [address] Burr Grinder: Mk Egan MD, PhD QuantiFERON TB Gold Plus Negative Negative 01/17/2022 1:41 AM FITTING ROOM CHECKER [employer] ([facility]) Comment: Interpretive Data: Quantiferon TB Gold Plus [...] Mycobacterium tuberculosis Infection --- [place], 2010 (http://www.cdc.gov/mmwr/preview/mmwrhtml/yr4786v0.htm), for more information concerning test performance in low-prevalence populations and use in occupational screening. QuantiFERON Plus TB1 Minus NIL 0.00 0.00 - 0.34 IU/mL 01/17/2022 1:41 AM FITTING ROOM CHECKER [employer] ([facility]) QuantiFERON Plus TB2 Minus NIL 0.01 0.00 - 0.34 IU/mL 01/17/2022 1:41 AM FITTING ROOM CHECKER [employer] ([facility]) QuantiFERON [employer]ogen Minus NIL >10.00 IU/mL 01/17/2022 1:41 AM FITTING ROOM CHECKER [facility] [facility] ([facility]) Blood BLOOD SPECIMEN / Unknown Lab Venipuncture / Unknown 01/14/2022 9:54 AM FITTING ROOM CHECKER 01/14/2022 10:49 AM FITTING ROOM CHECKER Marbin Flores MD LAB - CHEMISTRY PK ZENG [facility]) [address] * (ABNORMAL) PTH INTACT ([facility]) (01/14/2022 9:54 AM FITTING ROOM CHECKER) Only the most recent of2 resultswithin the time period is included. Pathologist [facility] PTH Intact 266.9(H) 8.0 - 77.0 pg/mL 01/14/2022 11:37 AM FITTING ROOM CHECKER [facility] Blood BLOOD SPECIMEN / Unknown Lab Venipuncture / Unknown 01/14/2022 9:54 AM FITTING ROOM CHECKER 01/14/2022 11:00 AM FITTING ROOM CHECKER Marbin Flores MD LAB - CHEMISTRY PK ZENG Performing Organization Address [facility]/ZIP Co de Phone Number [address] [address], [facility] [phone] * HIV-1 HIV-2 ANTIBODY + HIV P24 AG PANEL (01/14/2022 9:54 AM FITTING ROOM CHECKER) Pathologist [facility] HIV Antigen/Antibod y 1 & 2 Non-reacti ve Non-react sylvie 01/14/2022 11:52 AM FITTING ROOM CHECKER [facility] Comment:No Laboratory eviden ce of HIV infection. Blood BLOOD SPECIMEN / Unknown Lab Venipuncture / Unknown 01/14/2022 9:54 AM FITTING ROOM CHECKER 01/14/2022 10:48 AM FITTING ROOM CHECKER Marbin Flores MD LAB - CHEMISTRY PK ZENG Performing Organization Address City/[facility]/ZIP Co de Phone Number [address] [address] [phone] * OPIATES BLOOD (01/14/2022 9:54 AM FITTING ROOM CHECKER) Only the most recent of2 resultswithin the time period is included. Pathologist [facility] Opiates Screen Negative 01/19/2022 8:07 PM [facility] ([facility]) Comment:REFERENCE RANGE: thr shold: 10 ng/mL Oxycodone Screen Negative 01/20/20 8:07 PM FITTING ROOM CHECKER [facility] ([facility]) Comment:REFERENCE RANGE: thr shold: 10 ng/mL Specimen Type Comment 01/19/2022 8:07 PM FITTING ROOM CHECKER [facility] ([facility]) Comment: WHOLE BLOOD This specimen was screened by immunoassay at the thresholds listed above. Presumptive positive results have not been confirmed by an alternate method; results are intended for clinical medical purposes. Please contact the laboratory if confirmatory testing is desired. This test was developed and its performance characteristics determined by [facility]. It has not been cleared or approved by the Food and Drug Administration. Blood BLOOD SPECIMEN / Unknown Lab Venipuncture / Unknown 01/14/2022 9:54 AM FITTING ROOM CHECKER 01/14/2022 10:49 AM FITTING ROOM CHECKER Narrative [facility] ([facility]) - 01/19/2022 8:07 PM FITTING ROOM CHECKER Performed at: [facility] [employer] [address] [id number] Risk Control Director: Ev Camarena [facility], Phone: [phone] Marbin Flores MD LAB - CHEMISTRY PK ZENG [facility] Organization Address City/State/ZIP Co de Phone Number [facility]) [address] [place] [address] * URIC ACID BLOOD (01/14/2022 9:54 AM FITTING ROOM CHECKER) Only the most recent of2 resultswithin the time period is included. [facility] Uric Acid 7.0 3.5 - 7.2 mg/dL 01/14/2022 11:38 AM FITTING ROOM CHECKER [facility] Blood BLOOD SPECIMEN / Unknown Lab Venipuncture / Unknown 01/14/2022 9:54 AM FITTING ROOM CHECKER 01/14/2022 11:00 AM FITTING ROOM CHECKER Marbin Flores MD LAB - CHEMISTRY ORDE AUZCENA Performing Organization Address [facility] Co de Phone Number [place] [phone], [facility] [phone] * STRONGYLOIDES ANTIBODY IGG (01/14/2022 9:54 AM FITTING ROOM CHECKER) Only the most recent of2 resultswithin the time period is included. Strongyloides Antibody IgG 0.1 <=0.9 IV 01/16/2022 1:02 AM FITTING ROOM CHECKER [employer] ([facility]) Comment: INTERPRETIVE INFORMATION: Strongyloides Ab, IgG by [...] also result in false-positive results. Performed By: [facility] [address] [place] [address] Burr Grinder: Mk Egan MD, PhD Blood BLOOD SPECIMEN / Unknown Lab Venipuncture / Unknown 01/14/2022 9:54 AM FITTING ROOM CHECKER 01/14/2022 10:48 AM FITTING ROOM CHECKER Marbin Flores MD LAB - SEROLOGY ORDER MICHELLE [employer] ([facility]) [address] * CYTOMEGALOVIRUS ANTIBODY IGG BLOOD (01/14/2022 9:54 AM FITTING ROOM CHECKER) Only the most recent of2 resultswithin the time period is included. Cytomegalovirus Antibody IgG <0.20 U/mL 01/15/2022 4:12 PM FITTING ROOM CHECKER [facility] ([facility]) Comment: INTERPRETIVE INFORMATION: Cytomegalovirus Antibody, IgG 0.59 [...] laboratory at the same time. Performed By: [facility] [address] [place] [address] Burr Grinder: Mk Egan MD, PhD Blood BLOOD SPECIMEN / Unknown Lab Venipuncture / Unknown 01/14/2022 9:54 AM FITTING ROOM CHECKER 01/14/2022 10:48 AM FITTING ROOM CHECKER Marbin Flores MD LAB - CHEMISTRY PK ZENG Performing Organization Address City/[facility]/ZIP Co de Phone Number [facility] ([facility]) [address] [place] [address], [facility] * TRANSFERRIN (01/14/2022 9:54 AM FITTING ROOM CHECKER) Only the most recent of2 resultswithin the time period is included. Transferrin 176 174 - 382 mg/dL 01/14/2022 11:36 AM FITTING ROOM CHECKER [facility] Blood BLOOD SPECIMEN / Unknown Lab Venipuncture / Unknown 01/14/2022 9:54 AM FITTING ROOM CHECKER 01/14/2022 10:48 AM FITTING ROOM CHECKER Marbin Flores MD LAB - CHEMISTRY PK ZENG [address] [address] [phone] * TOXOPLASMA GONDII ANTIBODY IGG (01/14/2022 9:54 AM FITTING ROOM CHECKER) Only the most recent of2 resultswithin the time period is included. Toxoplasma Antibody IgG <3.0 IU/mL 01/15/2022 4:23 PM FITTING ROOM CHECKER [facility] ([facility]) Comment: INTERPRETIVE INFORMATION: Toxoplasma Ab, IgG 7.1 [...] the amount of antibody present. Performed By: [facility] [address] [place] [address] Burr Grinder: Mk Egan MD, PhD Blood BLOOD SPECIMEN / Unknown Lab Venipuncture / Unknown 01/14/2022 9:54 AM FITTING ROOM CHECKER 01/14/2022 10:48 AM FITTING ROOM CHECKER Marbin Flores MD LAB - CHEMISTRY PK ZENG [facility] Organization Address City/State/[facility] Co de Phone Number [facility] [employer] [facility]) [address] * (ABNORMAL) HEMOGLOBIN A1C (01/14/2022 9:54 AM FITTING ROOM CHECKER) Only the most recent of2 resultswithin the time period is included. Hemoglobin A1c 8.7(H) <=5.6 % 01/14/2022 1:10 PM FITTING ROOM CHECKER [facility] Estimated Average Glucose 203 mg/dL 01/14/2022 1:10 PM FITTING ROOM CHECKER [facility] Comment: HbA1c Interpretation: Normal : < 5.7% Pre-diabetes: 5.7-6.4% Diabetes: Equal to or greater than 6.5% Test results diagnostic of diabetes should be repeated for confirmation. Treatment target values recommended by ADA and other clinical organizations should be used to evaluate metabolic control in patients. Reference: [place] [employer], Standards of Care in Diabetes -2020 In patients 70 years and older consider HbA1c target range of 7.0-7.5% (Reference: [employer] et al. GREGORYDA. 2012) The Sebia assay for the measurement of HbA1c is a National Glycohemoglobin Standardization Program (NGSP) certified method. Blood BLOOD SPECIMEN / Unknown Lab Venipuncture / Unknown 01/14/2022 9:54 AM FITTING ROOM CHECKER 01/14/2022 11:00 AM FITTING ROOM CHECKER Marbin Flores MD LAB - CHEMISTRY PK ZENG Performing Organization Address City/[facility]/ZIP Co de Phone Number [address] [address], [facility] [phone] * VITAMIN D 25-HYDROXY (01/14/2022 9:54 AM FITTING ROOM CHECKER) Only the most recent of2 resultswithin the time period is included. Pathologist [facility] Vitamin D, 25 Hydroxy 39.0 30.0 - 80.0 ng/mL 01/14/2022 11:47 AM FITTING ROOM CHECKER [facility] Comment: The recommendations for 25-Hydroxy [...] Lab Venipuncture / Unknown 01/14/2022 9:54 AM FITTING ROOM CHECKER 01/14/2022 11:00 AM FITTING ROOM CHECKER Marbin Flores MD LAB - CHEMISTRY PK ZENG [address] [address] [phone] * NICOTINE + METABOLITES BLOOD (01/14/2022 9:54 AM FITTING ROOM CHECKER) Only the most recent of2 resultswithin the time period is included. [facility] Signature Nicotine <5 ng/mL 01/17/2022 2:23 PM FITTING ROOM CHECKER [employer] ([facility]) Comment: Consistent with abstinence from nicotine-containing products [...] developed and its performance characteristics determined by [employer]. It has not been cleared or approved by the US Food and Drug Administration. This test was performed in a CLIA certified laboratory and is intended for clinical purposes. Performed By: [employer] [address] [place] [address] Burr Grinder: Mk Egan MD, PhD Cotinine <5 ng/mL 01/17/2022 2:23 PM FITTING ROOM CHECKER [facility]) Blood BLOOD SPECIMEN / Unknown Lab Venipuncture / Unknown 01/14/2022 9:54 AM FITTING ROOM CHECKER 01/14/2022 10:48 AM FITTING ROOM CHECKER Marbin Flores MD LAB - CHEMISTRY PK ZENG [facility] [employer] [facility]) [address] * (ABNORMAL) CBC W AUTO DIFFERENTIAL (01/14/2022 9:54 AM FITTING ROOM CHECKER) Only the most recent of4 resultswithin the [...] Lab Venipuncture / Unknown 01/14/2022 9:54 AM FITTING ROOM CHECKER 01/14/2022 11:00 AM [facility] Marbin Flores MD LAB - HEMATOLOGY ORD ERABLES [facility] [address] [place] [phone], [facility] [phone] * (ABNORMAL) COMPREHENSIVE METABOLIC PANEL (01/14/2022 9:54 AM [facility]) Only the most recent of2 resultswithin the [...] Lab Venipuncture / Unknown 01/14/2022 9:54 AM FITTING ROOM CHECKER 01/14/2022 11:00 AM [facility] Marbin Flores MD LAB - CHEMISTRY PK ZENG [facility] Organization Address City/State/ZIP Co de Phone Number [address] [address], [facility] [phone] * PROSTATE SPECIFIC ANTIGEN SCREEN (01/14/2022 9:54 AM FITTING ROOM CHECKER) Only the most recent of2 resultswithin the time period is included. PSA Total 3.3 0.0 - 4.0 ng/mL 01/14/2022 11:54 AM FITTING ROOM CHECKER [facility] Blood BLOOD SPECIMEN / Unknown Lab Venipuncture / Unknown 01/14/2022 9:54 AM FITTING ROOM CHECKER 01/14/2022 11:00 AM FITTING ROOM CHECKER Marbin Flores MD LAB - CHEMISTRY PK ZENG [address] [address], [facility] [phone] * (ABNORMAL) PHOSPHORUS BLOOD (01/14/2022 9:54 AM FITTING ROOM CHECKER) Only the most recent of2 resultswithin the time period is included. Phosphorus 5.4(H) 2.8 - 5.1 mg/dL 01/14/2022 11:38 AM FITTING ROOM CHECKER [facility] Blood BLOOD SPECIMEN / Unknown Lab Venipuncture / Unknown 01/14/2022 9:54 AM FITTING ROOM CHECKER 01/14/2022 11:00 AM FITTING ROOM CHECKER Marbin Flores MD LAB - CHEMISTRY PK ZENG [address] [address], [facility] [phone] * IRON BLOOD (01/14/2022 9:54 AM FITTING ROOM CHECKER) Only the most recent of2 resultswithin the time period is included. Iron 62 50 - 175 ug/dL 01/14/2022 11:36 AM FITTING ROOM CHECKER [facility] Blood BLOOD SPECIMEN / Unknown Lab Venipuncture / Unknown 01/14/2022 9:54 AM FITTING ROOM CHECKER 01/14/2022 10:48 AM FITTING ROOM CHECKER Marbin Flores MD LAB - CHEMISTRY ORDLien ALEJOADELFO Performing Organization Address City/[facility]/ZIP Co de Phone Number [address] [address], [facility] [phone] * LDL CHOLESTEROL DIRECT (01/14/2022 9:54 AM FITTING ROOM CHECKER) Only the most recent of3 resultswithin the time period is included. LDL Direct 46 <100 mg/dL 01/14/2022 11:57 AM [facility] Comment: ATP III Classification of LDL Cholesterol: <100 mg/dL: Optimal 100 - 129 mg/dL: Near Optimal/Above Optimal 130 - 159 mg/dL: Borderline High 160 - 189 mg/dL: High >190 mg/dL: Very High Blood BLOOD SPECIMEN / Unknown Lab Venipuncture / Unknown 01/14/2022 9:54 AM FITTING ROOM CHECKER 01/14/2022 11:00 AM FITTING ROOM CHECKER Marbin Flores MD LAB - CHEMISTRY PK ZENG Performing Organization Address City/[facility]/ZIP Co de Phone Number [address] [address], [facility] [phone] * HEPATITIS B SURFACE ANTIBODY (01/14/2022 9:54 AM FITTING ROOM CHECKER) Only the most recent of2 resultswithin the time period is included. Hepatitis B Virus Surface Antibody Non-react sylvie Non-react sylvie 01/14/2022 11:52 AM [facility] Comment: < 8 mIU/mL Hepatitis B surface Antibody (HBsAb). Nonreactive for HBsAb - individual is considered not immune to Hepatitis B Virus infection. Hepatitis B Surface Antibody Quantitative 1.2 <8.0 mIU/mL 01/14/2022 11:52 AM [facility] Comment: Hepatitis B Surface Antibody Numeric Result Interpretation: Nonreactive: <8.0 mIU/mL Indeterminate: 8.0 - 12.0 mIU/mL Reactive: >12.0 mIU/mL Blood BLOOD SPECIMEN / Unknown Lab Venipuncture / Unknown 01/14/2022 9:54 AM FITTING ROOM CHECKER 01/14/2022 10:48 AM FITTING ROOM CHECKER Marbin Flores MD LAB - CHEMISTRY PK ZENG Performing Organization Address City/[facility]/ZIP Co de Phone Number [address] [address], [facility] [phone] * HEPATITIS B CORE ANTIBODY (01/14/2022 9:54 AM FITTING ROOM CHECKER) Only the most recent of2 resultswithin the time period is included. Pathologist [facility] HBc Antibody Total Non-reacti ve Non-reacti ve 01/14/2022 11:52 AM FITTING ROOM CHECKER [facility] Blood BLOOD SPECIMEN / Unknown Lab Venipuncture / Unknown 01/14/2022 9:54 AM FITTING ROOM CHECKER 01/14/2022 10:48 AM FITTING ROOM CHECKER Marbin Flores MD LAB - CHEMISTRY PK ZENG Performing Organization Address [facility] Co de Phone Number [address] [address], [place] [phone] * HEPATITIS B SURFACE ANTIGEN W RFLX CONFIRMATION (01/14/2022 9:54 AM FITTING ROOM CHECKER) Only the most recent of2 resultswithin the time period is included. [facility] Hepatitis B Virus Surface Antigen Non-reacti ve Non-reacti ve 01/14/2022 11:52 AM FITTING ROOM CHECKER [facility] Blood BLOOD SPECIMEN / Unknown Lab Venipuncture / Unknown 01/14/2022 9:54 AM FITTING ROOM CHECKER 01/14/2022 10:48 AM FITTING ROOM CHECKER Marbin Flores MD LAB - CHEMISTRY PK ZENG Performing Organization Address City/[facility]/ZIP Co de Phone Number [address] [address], [place] [phone] * ALCOHOL ETHYL BLOOD (01/14/2022 9:54 AM FITTING ROOM CHECKER) Only the most recent of2 resultswithin the time period is included. [facility] Ethanol (mg/dL) <10 <=10 mg/dL 11/28/202 2 11:38 AM [facility] Ethanol Calculated (g/dL) <0.010 <0.010 g/dL 01/14/2022 11:38 AM [facility] Blood BLOOD SPECIMEN / Unknown Lab Venipuncture / Unknown 01/14/2022 9:54 AM FITTING ROOM CHECKER 01/14/2022 11:00 AM FITTING ROOM CHECKER Narrative [facility] - 01/14/2022 11:38 AM FITTING ROOM CHECKER Ethanol Interp <10: None Detected. Depression of HATCHERY EMPLOYEE: >100 mg/dl Potentially Critical: >250 mg/dl Potentially [...] City/[facility]/ZIP Co de Phone Number [address] [address], [place] [phone] * HEPATITIS C ANTIBODY (01/14/2022 9:54 AM FITTING ROOM CHECKER) Only the most recent of2 resultswithin the time period is included. Hepatitis C Antibody Non-react sylvie Non-reac tive 01/14/2022 11:52 AM [facility] Comment:Hepatitis C Antibody screen indicates no serologic evidence of past or current infection with Hepatitis C Virus. Patients with unexplained liver disease who are immunocompromised or suspected of having acute Hepatitis C infection may benefit from Nucleic Acid Test (MARLON) for Hepatitis C Viral RNA to confirm Hepatitis C status. Blood BLOOD SPECIMEN / Unknown Lab Venipuncture / Unknown 01/14/2022 9:54 AM FITTING ROOM CHECKER 01/14/2022 10:48 AM FITTING ROOM CHECKER Marbin Flores MD LAB - CHEMISTRY PK ZENG Performing Organization Address City/[facility]/ZIP Co de Phone Number [address] [address], [facility] [phone] * HEPATITIS A ANTIBODY (01/14/2022 9:54 AM FITTING ROOM CHECKER) Only the most recent of2 resultswithin the time period is included. Pathologist [facility] Hepatitis A Virus Antibody Total Negative Negative 01/15/2022 1:38 PM FITTING ROOM CHECKER [employer] ([facility]) Comment: Performed by [employer], [address] [place] [id number] [email or web address], Mk Egan MD, PHD, Lab. Director Blood BLOOD SPECIMEN / Unknown Lab Venipuncture / Unknown 01/14/2022 9:54 AM FITTING ROOM CHECKER 01/14/2022 10:48 AM FITTING ROOM CHECKER Marbin Flores MD LAB - CHEMISTRY PK ZENG Performing Organization Address City/[facility]/ZIP Co de Phone Number [facility]) [address] [place] [address] * (ABNORMAL) FERRITIN (01/14/2022 9:54 AM FITTING ROOM CHECKER) Only the most recent of2 resultswithin the time period is included. [facility] Ferritin 847(H) 22 - 275 ng/mL 01/14/2022 11:52 AM FITTING ROOM CHECKER [facility] Blood BLOOD SPECIMEN / Unknown Lab Venipuncture / Unknown 01/14/2022 9:54 AM FITTING ROOM CHECKER 01/14/2022 10:48 AM FITTING ROOM CHECKER Marbin Flores MD LAB - CHEMISTRY PK ZENG [facility] [address] [place] [phone], [facility] [phone] * (ABNORMAL) LIPID PROFILE (01/14/2022 9:54 AM FITTING ROOM CHECKER) Only the most recent of3 resultswithin the time period is included. [facility] Cholesterol Total 173 <200 mg/dL 01/14/2022 11:38 AM FITTING ROOM CHECKER [facility] HDL 21(L) >40 mg/dL 01/14/2022 11:38 AM FITTING ROOM CHECKER [facility] Comment: ATP III Classification of HDL [...] Lab Venipuncture / Unknown 01/14/2022 9:54 AM FITTING ROOM CHECKER 01/14/2022 11:00 AM FITTING ROOM CHECKER Marbin Flores MD LAB - CHEMISTRY PK ZENG [facility] Organization Address City/State/[facility] Co de Phone Number [address] [address], [facility] [phone] * ECHO COMPLETE (11/07/2021 11:30 AM CDT) [...] Alexey Sellers M.D. Vascular and Interventional Radiology [facility] [phone] CC: Patient's lockstitch sleeve setter: Dr. Alan Mccall Dialysis unit: [facility] Alan Mccall MD IR ORDERABLES * IR CENTRAL LINE INSERT TUNNEL (04/04/2021 10:31 AM FITTING ROOM CHECKER) Only the most recent of2 resultswithin the time period is included. Anatomical Region Laterality Modality Chest, Upper Extremity X-Ray Ang iography Narrative 04/04/2021 10:20 AM FITTING ROOM CHECKER Santiago Sellers MD 04/04/2021 10:21 AM VASCULAR [...] completed, removal can be scheduled by calling [facility] at [phone]. Alexey Sellers M.D. Vascular and Interventional Radiology [facility] [phone] CC: Patient's lockstitch sleeve setter: Dr. Alan Mccall Dialysis unit: [facility] Alan Mccall MD IR ORDERABLES * (ABNORMAL) RENAL FUNCTION PANEL (09/07/2020 12:00 PM CDT) Glucose 168(H) 70 - 105 mg/dL 09/07/2020 1:34 PM CDT [facility] Sodium 139 136 - 145 mmol/L 09/07/2020 1:34 PM CDT [facility] Potassium 3.5 3.5 - 5.1 mmol/L 09/07/2020 1:34 PM CDT [facility] Chloride 98 98 - 107 mmol/L 09/07/2020 1:34 PM CDT [facility] CO2 27 23 - 31 mmol/L 09/07/2020 1:34 PM CDT [facility] Calcium 8.1(L) 8.4 - 10.4 mg/dL 09/07/2020 1:34 PM CDT [facility] Anion Gap 14 8 - 18 mmol/L 09/07/2020 1:34 PM CDT [facility] BUN 32(H) 8.4 - 25.7 mg/dL 09/07/2020 1:34 PM CDT [facility] Creatinine 5.32(H) 0.72 - 1.25 mg/dL 09/07/2020 1:34 PM CDT [facility] Albumin 2.8(L) 3.2 - 4.6 gm/dL 09/07/2020 1:34 PM CDT [facility] Phosphorus 4.0 2.3 - 4.7 mg/dL 09/07/2020 1:34 PM CDT [facility] eGFR by MDRD 11(L) >60 mL/min/1.7 3m2 09/07/2020 1:34 PM CDT [facility] eGFR by MDRD 13(L) >60 mL/min/1.7 3m2 09/07/2020 1:34 PM CDT [facility] Blood BLOOD SPECIMEN / Unknown Lab Venipuncture / Unknown 09/07/2020 12:00 PM CDT 09/07/2020 1:05 PM CDT lAan Mccall MD LAB - CHEMISTRY PK ZENG [facility] Organization Address City/State/ZIP Co de Phone Number [facility] [address] [place], [place] [phone] * [place] PERITONEUM (09/06/2020 10:07 AM CDT) Anatomical Region Laterality Modality Abdomen X-Ray Angiograph y Narrative 09/06/2020 11:46 AM Aki Treviño MD 09/06/2020 2:51 PM Kendall Carl 1955 [phone] Interventional Nephrology Procedure Date: 09/06/2020 Attending Surgeon [...] PLACEMENT: INJECTION OF AIR/CONTRAST OF PERITONEAL CAVITY; [id number]; [id number] Findings: 1. Contrast injection through the catheter [...] laparoscopic. Aki Boles MD 09/06/2020 11:46 AM [facility] VAC [phone] Christiano Perea MD [facility] Alan Mccall MD FLUOROSCOPY ORDERABL ES * CARDIAC PROCEDURE ORDER (08/07/2020 3:59 PM CDT) Narrative 08/07/2020 3:59 PM CDT Ordered by an unspecified provider. Scanned Document CARDIAC SERVICES ORD ERABLES * CCL CARDIAC CATH LEFT (08/04/2020 11:57 AM CDT) Anatomical Region Laterality Modality Chest X-Ray Angiograph y Narrative 08/16/2020 2:51 PM CDT [facility] Cardiac Catheterization Procedure Note Patient: Kendall Carl Age: [age] year old Date of : 1955 Procedure Date: 08/04/2020 FELLOW / BRAZER REPAIR AND SALVAGE: Jade Russo MD ATTENDING PHYSICIAN: Javier Lan [...] 7. INTERVENTIONAL WIRE: A Aeris wireless pressure wire [...] Javier Lan MD Eliza Phan MD CARDIAC NAILER OPERATOR RA DIANT * (ABNORMAL) GLUCOSE - POINT OF CARE (08/04/2020 9:23 AM CDT) Only the most recent of4 resultswithin the time period is included. [facility] Glucose WB/POC 403(H) 70 - 115 mg/dL 08/04/2020 9:27 AM CDT [facility] Specimen Type Venous 08/04/2020 9:27 AM CDT [facility] Blood BLOOD SPECIMEN / Unknown 08/04/2020 9:23 AM CDT 08/04/2020 9:27 AM CDT Eliza Phan MD LAB - POINT OF CARE ORDERABLES [facility] [address] [place] [address], [facility] [phone] * XR CHEST 1VW (08/02/2020 2:31 PM CDT) Anatomical Region Laterality Modality Chest Radiographic Pastora ging 08/02/2020 2:22 PM CDT Impressions 08/02/2020 2:32 PM CDT FINDINGS/IMPRESSION: There is no focal consolidation, pleural effusion, or pneumothorax. The cardiomediastinal silhouette is normal. Report drafted by Harsh Mohamud M.D. (resident) Dr. LUIS Leigh have personally reviewed and interpreted this examination/study. This report was electronically signed by LIUS JAMES on 08/02/2020 2:32 PM . Narrative [...] DIAGNOSTIC IMAGING ORDERABLES * CT KIDNEY BIOPSY( [id number] and [id number]) (08/02/2020 1:16 PM CDT) Anatomical Region Laterality [...] CDT) Case Report Surgical Pathology Report Case: [id number] Authorizing Provider: Thomas Mendoza MD Collected: 08/02/2020 12:20 PM Ordering Location: [facility] IVR Received: 08/02/2020 01:42 PM Pathologist: Elinor Phillips MD Specimen: Kidney Mass, Biopsy 08/04/2020 3:00 PM [facility] Final Diagnosis Kidney, left, biopsy (A): - Oncocytic neoplasm, see comment 08/04/2020 3:00 PM [facility] Microscopic Description and Comment Immunostains show tumor cells are positive for CD117 and rare tumor cells are positive for CK7 and BerEP4. If this biopsy is territory representative of the entire lesion, it would be consistent with an oncocytoma. 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 Received in formalin, specimen A , are 4 purple-ho soft tissue cores 0.5-1.4 cm in length with diameters of 0.1 cm and a 0.9 x 0.1 x 0.1 cm portion of red-brown blood clot, submitted in toto in cassette A1. AH 08/04/2020 3:00 PM [facility] Disclaimer The performance characteristics of all immunohistochemical and indirect immunofluorescence stains (if any) cited in this report were determined by the [facility]. Some of these tests were developed by [...] the attending (teaching) pathologist. 08/04/2020 3:00 PM [facility] Embedded Images 08/04/2020 3:00 PM CDT [facility] Pathology/Cytolo gy MASS / Unknown Collection / Unknown 08/02/2020 12:20 PM CDT 08/02/2020 1:42 PM CDT Thomas Mendoza MD LAB - PATHOLOGY/CY TOLOGY ORDERABLES Performing Organization Address [facility]/State/ZIP Co de Phone Number [facility] [address] [id number] [phone] * PT-INR (07/28/2020 8:14 AM CDT) PT 12.8 12.1 - 14.8 sec 07/28/2020 8:41 AM CDT [facility] INR 1.0 0.9 - 1.1 07/28/2020 8:41 AM CDT [facility] Blood BLOOD SPECIMEN / Unknown Lab Venipuncture / Unknown 07/28/2020 8:14 AM CDT 07/28/2020 8:14 AM CDT Narrative [facility] - 07/28/2020 8:41 AM CDT Conventional Warfarin Anticoagulant Therapy: INR Reference Range: 2.0-3.0 Intensive Warfarin Anticoagulant Therapy: INR Reference Range: 2.5-3.5 Eliza Phan MD LAB - COAGULATION O RDERABLES [facility] [address] [place] [address] * (ABNORMAL) BASIC METABOLIC PANEL (CALCIUM TOTAL) (07/28/2020 8:14 AM CDT) Glucose 290(H) 70 - 105 mg/dL 07/28/2020 9:06 AM CDT [facility] Sodium 137 136 - 145 mmol/L 07/28/2020 9:06 AM CDT [facility] Potassium 4.2 3.5 - 5.1 mmol/L 07/28/2020 9:06 AM CDT [facility] Chloride 101 98 - 107 mmol/L 07/28/2020 9:06 AM CDT [facility] CO2 25 23 - 31 mmol/L 07/28/2020 9:06 AM CDT [facility] Calcium 8.8 8.4 - 10.4 mg/dL 07/28/2020 9:06 AM CDT [facility] Anion Gap 11 8 - 18 mmol/L 07/28/2020 9:06 AM CDT [facility] BUN 38(H) 8.4 - 25.7 mg/dL 07/28/2020 9:06 AM CDT [facility] Creatinine 5.77(H) 0.72 - 1.25 mg/dL 07/28/2020 9:06 AM CDT [facility] eGFR by MDRD 10(L) >60 mL/min/1.7 3m2 07/28/2020 9:06 AM CDT [facility] eGFR by MDRD 12(L) >60 mL/min/1.7 3m2 07/28/2020 9:06 AM CDT [facility] Blood BLOOD SPECIMEN / Unknown Lab Venipuncture / Unknown 07/28/2020 8:14 AM CDT 07/28/2020 8:14 AM CDT Eliza Phan MD LAB - CHEMISTRY ORD ERABLES [facility] [address] [place] [address] * CT KIDNEYS WWO CONTRAST [...] stability. Report dictated by Donny Oneill DO (residential plumber) I, Dr. RODRICK JOSEPH have personally reviewed [...] stability. Report dictated by Donny Oneill DO (residential plumber) I, Dr. RODRICK JOSEPH have personally reviewed and interpreted this examination/study. This report was electronically signed by RODRICK JOSEPH on 11:16 PM . Alan Davenport MD CT ORDERABLES * HEMOGLOBIN A1C - POINT OF CARE (AMB) [facility] (05/17/2020 1:19 PM CDT) Hemoglobin A1c POCT 11.1 BLOOD SPECIMEN / Unknown 05/17/2020 1:19 PM CDT Miya Juárez [employer]-CON[employer] [facility] LAB - POINT O F CARE ORDERABLES [...] the fluoroscopy table in supine position. AP composition mixer image was obtained. A Key catheter was [...] the fluoroscopy table in supine position. AP composition mixer image was obtained. A Key catheter was [...] Rh O NEG 11/09/2019 12:07 PM CDT [facility] B[facility] Blood BLOOD SPECIMEN / Unknown Lab Venipuncture / Unknown 11/09/2019 10:20 AM CDT 11/09/2019 11:20 AM CDT Alan Davenport MD LAB - BLOOD BANK ORD ERABLES [facility] B[facility] LAB [address] [place] [address], [facility] [phone] * HLA TYPING DNA LOW RESOLUTION DR,DQ (11/09/2019 10:13 AM CDT) DR DQ Low Resolution DRB1-1 03 (DR17) 12/09/2019 3:33 PM CDT [facility] ([facility]) DR DQ Low Resolution DRB1-2 11 12/09/2019 3:33 PM CDT [facility] ([facility]) DR DQ Low Resolution DQB1-1 02 12/09/2019 3:33 PM CDT [facility] ([facility]) DR DQ Low Resolution DQB1-2 03 (DQ7) 12/09/2019 3:33 PM CDT [facility] ([facility]) DR DQ Low Resolution DRB3-1 01 12/09/2019 3:33 PM CDT [facility] ([facility]) DR DQ Low Resolution DRB3-2 02 12/09/2019 3:33 PM CDT [facility] ([facility]) DR DQ Low Resolution DRB4-1 Negative 12/09/2019 3:33 PM CDT [facility] ([facility]) DR DQ Low Resolution DRB4-2 Negative 12/09/2019 3:33 PM CDT [facility] ([facility]) DR DQ Low Resolution DRB5-1 Negative 12/09/2019 3:33 PM CDT [facility] ([facility]) DR DQ Low Resolution DRB5-2 Negative 12/09/2019 3:33 PM CDT [facility] ([facility]) DR DQ Low Resolution Methodology SSOP 12/09/2019 3:33 PM CDT [facility] ([facility]) Comment DR DQ Low Resolution - 12/09/2019 3:33 PM CDT [facility] ([facility]) DR DQ Low Resolution test date 12/09/2019 12/09/2019 3:33 PM CDT [facility] ([facility]) Comment: This test was developed and its performance characteristics determined by the [facility]. It has not been cleared [...] high complexity clinical laboratory testing. CLIA ID# [id number] Performed at: [facility], [address] @ [place] [address] Risk Control Director: Juan Diego Martin MD, Blood BLOOD SPECIMEN / Unknown Lab Venipuncture / Unknown 11/09/2019 10:13 AM CDT 11/10/2019 3:47 AM CDT Alan Davenport MD LAB - BLOOD BANK ORD ERABLES [facility] ([facility]) [address] [place] [address], [facility] * HLA TYPING DNA LOW RESOLUTION A,B,C (11/09/2019 10:13 AM CDT) ABC DNA A1 02 12/09/2019 3:34 PM CDT [facility] ([facility]) ABC DNA A2 03 12/09/2019 3:34 PM CDT [facility] ([facility]) ABC DNA B1 08 12/09/2019 3:34 PM CDT [facility] ([facility]) ABC DNA B2 44 12/09/2019 3:34 PM CDT [facility] ([facility]) ABC DNA BW1 6 12/09/2019 3:34 PM CDT [facility] ([facility]) ABC DNA BW2 4 12/09/2019 3:34 PM CDT [facility] ([facility]) ABC DNA C1 02 12/09/2019 3:34 PM CDT [facility] ([facility]) ABC DNA C2 07 12/09/2019 3:34 PM CDT [facility] ([facility]) ABC DNA Methodology SSOP 12/08 3:34 PM CDT [facility] ([facility]) Comment ABC DNA - 0 3:34 PM CDT [facility] ([facility]) ABC DNA Test Date 0 12/09/2019 3:34 PM CDT [facility] ([facility]) Comment: This test was developed and its performance characteristics determined by the [facility]. It has not been cleared [...] high complexity clinical laboratory testing. CLIA ID# [id number] Performed at: [facility], [address] @ [place] [address] Risk Control Director: Juan Diego Martin MD, Blood BLOOD SPECIMEN / Unknown Lab Venipuncture / Unknown 11/09/2019 10:13 AM CDT 11/10/2019 3:47 AM CDT Alan Davenport MD LAB - BLOOD BANK ORD ERABLES [facility] ([facility]) [address] [place] [address], [place] * HLA ANTIBODY SCREEN LUM CLASS 2 ID (11/09/2019 10:13 AM CDT) % PRA 4 12/09/2019 3:33 PM CDT [facility] ([facility]) Class 2 LUM Specificity - 12/09/2019 3:33 PM CDT [facility] ([facility]) Class 2 LUM Test Date 0 12/09/2019 3:33 PM CDT [facility] ([facility]) Comment: This test was developed and [...] high complexity clinical laboratory testing. CLIA ID# [id number] Performed at: [facility], [address] @ [place] [address] Risk Control Director: Juan Diego Martin MD, Blood BLOOD SPECIMEN / Unknown Lab Venipuncture / Unknown 11/09/2019 10:13 AM CDT 11/10/2019 3:40 AM CDT Alan Davenport MD LAB - BLOOD BANK ORD ERABLES [facility] ([facility]) [address] [place] [address], [facility] * HLA ANTIBODY SCREEN LUM CLASS 1 ID (11/09/2019 10:13 AM CDT) % PRA 0 12/09/2019 3:33 PM CDT [facility] ([facility]) Class 1 LUM Specificity - 12/09/2019 3:33 PM CDT [facility] ([facility]) Class 1 LUM Test Date 0 12/09/2019 3:33 PM CDT [facility] ([facility]) Comment: This test was developed and [...] high complexity clinical laboratory testing. CLIA ID# [id number] Performed at: [facility], [address] @ [place] [address] Risk Control Director: Juan Diego Martin MD, Blood BLOOD SPECIMEN / Unknown Lab Venipuncture / Unknown 11/09/2019 10:13 AM CDT 11/10/2019 3:40 AM CDT Alan Davenport MD LAB - BLOOD BANK ORD ERABLES Performing Organization Address City/[facility]/ZIP Co de Phone Number [facility] [address] [place] [address], [place] * HIV-1 HIV-2 ANTIGEN/ANTIBODY (11/09/2019 10:13 AM CDT) Pathologist [facility] HIV Antigen/Antibod y 1 & 2 Non-reacti ve Non-react sylvie 11/09/2019 12:26 PM CDT [facility] Comment:Neither HIV-1 p24 An tigen nor HIV-1/HIV-2 Antibodies are detected. Blood BLOOD SPECIMEN / Unknown Lab Venipuncture / Unknown 11/09/2019 10:13 AM CDT 11/09/2019 11:10 AM CDT Alan Davenport MD LAB - HEMATOLOGY ORD ERABLES Performing Organization Address City/[facility]/ZIP Co de Phone Number [facility] [address] [place] [address], [facility] [phone] * RUBELLA ANTIBODY IGG TITER (11/09/2019 10:13 AM CDT) Rubella Antibody IgG >330.0 IU/mL 11/11/2019 11:06 AM CDT [facility] ([facility]) Comment: INTERPRETIVE INFORMATION: Rubella Antibody, IgG Less [...] the amount of antibody present. Performed By: [facility] [address] [place] [address] Burr Grinder: Kaur Blankenship MD Blood BLOOD SPECIMEN / Unknown Lab Venipuncture / Unknown 11/09/2019 10:13 AM CDT 11/09/2019 11:10 AM CDT Alan Davenport MD LAB - SEROLOGY ORDER MICHELLE [facility]) [address] [place] [address], [facility] * RUBEOLA ANTIBODY IGG (11/09/2019 10:13 AM CDT) [facility] Measles (Rubeola) Antibody IgG >300.0 AU/mL 11/11/2019 12:20 PM CDT [facility] ([facility]) Comment: INTERPRETIVE INFORMATION: Measles (Rubeola) Antibody, IgG [...] laboratory at the same time. Performed By: [facility] [address] [place] [address] Burr Grinder: Kaur Blankenship MD Blood BLOOD SPECIMEN / Unknown Lab Venipuncture / Unknown 11/09/2019 10:13 AM CDT 11/09/2019 11:11 AM CDT Alan Davenport MD LAB - CHEMISTRY PK ZENG Performing Organization Address [facility] de Phone Number [facility]) [address] [place] [address] * MUMPS ANTIBODY IGG (11/09/2019 10:13 AM CDT) Mumps Virus Antibody IgG >300.0 AU/mL 11/11/2019 11:57 AM CDT [facility] ([facility]) Comment: INTERPRETIVE INFORMATION: Mumps Ab, IgG by [...] laboratory at the same time. Performed By: [facility] [address] [place] [address] Burr Grinder: Kaur Blankenship MD Blood BLOOD SPECIMEN / Unknown Lab Venipuncture / Unknown 11/09/2019 10:13 AM CDT 11/09/2019 11:10 AM CDT Alan Davenport MD LAB - CHEMISTRY PK ZENG Performing Organization Address [facility] de Phone Number [facility] ([facility]) [address] * VARICELLA ZOSTER ANTIBODY IGG (11/09/2019 10:13 AM CDT) Varicella zoster Virus Antibody IgG 1243.0 IV 11/11/2019 12:55 PM CDT [facility] ([facility]) Comment: INTERPRETIVE INFORMATION: VZV Ab, IgG 134.9 [...] laboratory at the same time. Performed By: [facility] [address] [place] [address] Burr Grinder: Kaur Blankenship MD Blood BLOOD SPECIMEN / Unknown Lab Venipuncture / Unknown 11/09/2019 10:13 AM CDT 11/09/2019 11:11 AM CDT Alan Davenport MD LAB - CHEMISTRY PK ZENG Performing Organization Address [facility]/ZIP Co de Phone Number [facility] [employer]) [address] [place] [address] * (ABNORMAL) CHARLENE-GAONA VIRUS ANTIBODY TO VCA IGG (11/09/2019 10:13 AM CDT) [facility] Charlene-Gaona Virus Antibody IgG Viral Capsid Antigen 277.0(H) 0.0 - 21.9 U/mL 11/11/2019 12:37 PM CDT [facility] [employer] ([facility]) Comment: INTERPRETIVE INFORMATION: Charlene-Gaona Virus Antibody to Viral Capsid Antigen, IgG 17.9 U/mL or less.......Not Detected 18.0-21.9 U/mL..........Indeterminate - Repeat testing in 10-14 days may be helpful. 22.0 U/mL or greater....Detected Performed By: [facility] [address] [place] [address] Burr Grinder: Kaur Blankenship MD Blood BLOOD SPECIMEN / Unknown Lab Venipuncture / Unknown 11/09/2019 10:13 AM CDT 11/09/2019 11:12 AM CDT Alan Davenport MD LAB - CHEMISTRY PK ZENG Performing Organization Address [facility]/ZIP Co de Phone Number [facility] ([facility]) [address] [place] [address] * TYPE + SCREEN PANEL (11/09/2019 10:13 AM CDT) Antibody Screen NEG 0 12:07 PM CDT [facility] BLOOD BANK LAB ABO Rh O NEG 11/09/2019 12:07 PM CDT [facility] B[facility]OD [facility] LAB Blood Bank BLOOD SPECIMEN / Unknown Lab Venipuncture / Unknown 11/09/2019 10:13 AM CDT 11/09/2019 11:20 AM CDT Alan Davenport MD LAB - BLOOD BANK ORD ERABLES [facility] B[facility] [address] [place] [address], [facility] [phone] * CT ABDOMEN AND PELVIS NON IV [...] Enlarged prostate. Dictated by Agusto Bradley MD (residential plumber). IDr. Terry M.D. have personally reviewed and interpreted this [...] Enlarged prostate. Dictated by Agusto Bradley MD (residential plumber). Dr. Terry Leigh M.D. have personally reviewed [...] periapical abscess. Dictated by Felipe Younger MD (residential plumber). Dr. ADRIANA Leigh have personally reviewed and [...] periapical abscess. Dictated by Felipe Younger MD (residential plumber). Dr. ADRIANA Leigh have personally reviewed and [...] RIGHT 3VW OR MORE (03/05/2018 10:25 AM FITTING ROOM CHECKER) Anatomical Region Laterality Modality Wrist / Hand Radiographic Pastora ging 03/05/2018 11:3 0 AM FITTING ROOM CHECKER Impressions 03/05/2018 12:17 PM FITTING ROOM CHECKER IMPRESSION: 1. No acute bony abnormalities. No significant joint space narrowing. 2. Suggestion of mild diffuse soft tissue swelling of the third digit. Dictated by Lizandro Diaz MD (residential plumber). Dr. Terry Leigh M.D. have personally reviewed and interpreted this examination/study. This report was electronically signed by Terry DE LEON M.D. on 03/05/2018 12:17 PM . Narrative 03/05/2018 12:17 PM FITTING ROOM CHECKER EXAMINATION: XR HAND RIGHT 3VW OR MORE [...] third digit. Dictated by Lizandro Diaz MD (residential plumber). IDr. Terry M.D. have personally reviewed and interpretedthis examination/study. This report was electronically signed by Terry DE LEON M.D. on 03/05/2018 12:17 PM . Aracely Rock PA-C DIAGNOSTIC IMAG ING ORDERABLES * XR KNEE 3 VW RIGHT (03/28/2017 8:14 AM FITTING ROOM CHECKER) Anatomical Region Laterality Modality Lower Extremity Computed Radiogr aphy Narrative 03/28/2017 1:03 PM FITTING ROOM CHECKER Nadja Jenkins, RT(R) 03/28/2017 1:03 PM See progress notes for results Marilou Rodríguez PA-C DIAGNOSTIC IM AGING ORDERABLES Care Teams Senior Executive Compensation Analyst Relationship Specialty Start Date End Date Jeff Strickland MD [address] [place] [address] PCP - General 03/05/18 [place] [address] [address] Orthopedic Surgery 03/28/17
--- OUTSIDE RECORDS SUMMARY | 2024-04-02 22:23 | XMS_ITS ---
Author Organization [facility] Address [address] [place] [address] [place] [address] Care Team Providers Care Type Bar And Segment Assembler Name Role Phone DONNIE WOOD MD Primary Care Provider Robba Sergio Trujillo Unavailable [phone] REASON FOR VISIT BILAT SHOULDER JOINT INJECTION (NEED XRAY - BEING DONE AT [facility]) MEDICATIONS Medication SIG (Take, Route, Frequency, [...] Location Date Provider Diagnosis [facility] [address] [place] [phone] 03/08/2024 Sergio Rivera Primary osteoarthritis, unspecified shoulder [...] discharged home in good condition with a 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 X-ray time: 6 seconds Progress Notes [...] typical axial low back pain. John's, [place]'s and Gaenslen's are positive bilaterally. There is [...] Plan documen wendy:: Yes MIPS Quality 2020: [facility] Documented:: Compliant
--- OUTSIDE RECORDS SUMMARY | 2024-04-02 22:23 | XMS_ITS | Encounter Summary ---
Author Organization [facility] Address [address] [place] [address] Phone Care Team Providers Care Director Zone Name Role Phone Jeff Strickland MD Primary Care Provider Chan Nicholas MD Unavailable [phone] Alan Mccall MD Unavailable [phone] Lorna Lantigua MD Unavailable [phone] Juliette Savage RN Unavailable Pepito Haro MD PhD Unavailable Solange Guido MD Unavailable [phone] Encounter Details Date Type Department Care Team (Late st Contact Info) Description 05/02/2021 Ophth Exam [facility] [address] [place] [address] 1[address] [place] [phone] Corina Ventura MD PhD [address] [address] Social History Tobacco Use Types [...] on file Legal Sex Male 2:23 AM LOOM STARTER Gender Identity Not on file Sexual Orientation [...] COVID: Suspected 03/24/2023 03/24/2023 03/24/2023 5:45 PM LOOM STARTER COVID19 03/24/2023 03/24/2023 04/08/2023 3:06 AM LOOM STARTER COVID: Recovered Comment:Added based on recent COVID [...] arcade Normal Periphery Normal Normal Care Teams Director Zone Relationship Specialty Start Date End Date Jeff Strickland MD [address] [place] [address] PCP - General Family Medicine 04/02/18 Chan Nicholas MD [address] [place] [address] Consulting Physician Gastroenterology 11/24/18 Alan Mccall MD [address] [place] [address] Referring Physician Nephrology 11/24/18 Lorna Lantigua MD [address] [place] [address] Consulting Physician Cardiology 11/24/18 07/22/23 Juliette Savage, RN [address] [place] [address] Nurse Navigator 06/04/21 03/14/22 Pepito Haro MD PhD [address] [place] [address] Consulting Physician Neurosurgery 12/03/22 Solange Guido MD [address] [facility] [address] [place] [address] Referring Physician Cardiovascular Disease 07/23/23 documented as of this encounter
--- OUTSIDE RECORDS SUMMARY | 2024-04-02 22:23 | XMS_ITS | Encounter Summary ---
Author Organization [facility] Address [facility] [place] [address] Care Team Providers Care Sewing Machines Salesperson Name Role Phone Deandre Bojorquez MD Unavailable [phone] Jeff Strickland MD Primary Care Provider [phone] Encounter Details Date Type Department Care Team (Late st Contact Info) Description 04/10/2023 Lab Requisition [facility] MAIN LAB [address] [place] [address] Alan Davenport MD [facility]1 [facility] [place] [address] Social History Tobacco Use Types Packs/Day Years [...] Description 08/04/2024 11:30 AM CDT Appointment [facility] MRI [address] [place] [address] Thomas Mendoza MD [address] [facility] 2L [place] [address] 08/04/2024 1:30 PM CDT Office Visit [facility] - Urology [address] [place] [address] Thomas Mendoza MD [address] [facility] 2L [place] [address] documented as of this encounter Procedures Procedure Name Priority Date/Time Associated Diagnosis Comments HOLD HLA SPECIMEN Routine 04/02/2023 3:0 1 PM MAPPING SUPERVISOR documented in this encounter Results * HOLD HLA SPECIMEN (04/02/2023 3:01 PM MAPPING SUPERVISOR) Hold HLA Specimen 04/10/2023 4:01 PM MAPPING SUPERVISOR [facility] ([facility]) Comment:The Hold HLA specime n has been received into the lab and will be held for 5 years at 4 degrees. Blood BLOOD SPECIMEN / Unknown 04/02/2023 3:01 PM MAPPING SUPERVISOR 04/10/2023 3:01 PM MAPPING SUPERVISOR Alan Davenport MD LAB - BLOOD BANK ORD ERABLES [facility] ([facility]) [address] documented in this encounter Visit Diagnoses Not on filedocumented in this encounter Care Teams Sewing Machines Salesperson Relationship Specialty Start Date End Date Jeff Strickland MD [address] [place] [address] PCP - General 03/05/18 [place] [address] [facility] [address] [place] [address] Orthopedic Surgery 03/28/17 documented as of this encounter
--- OUTSIDE RECORDS SUMMARY | 2024-04-02 22:23 | XMS_ITS | Patient Health Record ---
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 Problem Chronic pain syndrome (G89.4) Active confirmed Chronic joan n syndrome (300047863) Problem Primary osteoarthritis, 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) Active confirmed Localized, primary osteoarthritis of the shoulder region (715809441) Problem Pain in left hip (M25.552) Active confirmed Pain of left hi p joint (finding) (328916209621831) Problem Spondylosis without myelopathy or radiculopathy, lumbar region (M47.816) Active confirmed Lumbosacral spondylosis without myelopathy (63703527) Problem Other intervertebral disc degeneration, lumbar region (M51.36) Active confirmed Degeneration of lumbar intervertebral disc (59278558) Problem Radiculopathy, lumbar region (M54.16) Active confirmed Lumbar radiculopathy (631921286) Problem Radiculopathy, lumbosacral region (M54.17) Active confirmed Lumbosacral radiculopathy (9326116) Problem Osseous stenosis of neural canal of lumbar region (M99.33) Active confirmed Spinal stenosis of lumbar region (01475440) Problem terminal worker (current) use of anticoagulants (Z79.01) Active confirmed Long-term curre nt use of anticoagulant (759175889) Problem Other intervertebral disc degeneration, lumbar region [...] Location Date Provider Diagnosis [facility] [address] [place] [address] 05/08/2023 Sergio Stynowick Radiculopathy, lumba r region M54.16 ; Other intervertebral disc degeneration, lumbar region M51.36 ; 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 ; Spondylosis without myelopathy or radiculopathy, lumbar region M47.816 and terminal worker (current) use of anticoagulants Z79.01 [facility] [address] [place] [address] 09/29/2023 Sergio Stynowick Radiculopathy, lumba r region M54.16 ; Other chest pain R07.89 ; Other intervertebral disc degeneration, lumbar region M51.36 ; 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 ; Spondylosis without myelopathy or radiculopathy, lumbar region M47.816 and terminal worker (current) use of anticoagulants Z79.01 [facility] [address] [place] [address] 01/12/2024 Sergio Stynowick Radiculopathy, lumba r region M54.16 ; Radiculopathy, lumbosacral region M54.17 ; Other chest pain R07.89 ; Other intervertebral disc degeneration, lumbar region M51.36 ; 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 ; Spondylosis without myelopathy or radiculopathy, lumbar region M47.816 and USP (current) use of anticoagulants Z79.01 [facility] [address] [place] [address] 01/19/2024 Sergio Stynowick Radiculopathy, lumba r region M54.16 ; Other intervertebral disc degeneration, lumbar region with discogenic back pain and lower extremity pain M51.362 and 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 [facility] [address] [place] [address] 02/03/2024 Sergio Stynowick Other chest pain R07.89 ; Pain in left knee M25.562 ; Radiculopathy, lumbar region M54.16 ; Other intervertebral disc degeneration, lumbar region M51.36 ; 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 ; Spondylosis without myelopathy or radiculopathy, lumbar region M47.816 and USP (current) use of anticoagulants Z79.01 [facility] [address] [place] [address] 03/03/2024 Sergio Stynowick Pain in left knee [...] in left shoulder M25.512 [facility] [address] [place] [address] 03/08/2024 Sergio Stynowick Primary osteoarthritis, unspecified shoulder M19.019 [facility] [address] [place] [phone] 03/31/2024 Sergio Stynowick ASSESSMENTS Encounter Date Diagnosis Assessment Notes Treatment [...] of lumbar region (ICD-10 - M99.33) 05/08/2023 USP (current) use of anticoagulants (ICD-10 - Z79.01) 09/29/2023 Spondylosis without myelopathy or radiculopathy, lumbar region (ICD-10 - M47.816) 09/29/2023 USP (current) use of anticoagulants (ICD-10 - Z79.01) 01/12/2024 Spondylosis without myelopathy or radiculopathy, lumbar region (ICD-10 - M47.816) 02/03/2024 Spondylosis without myelopathy or radiculopathy, lumbar region (ICD-10 - M47.816) 03/03/2024 Osseous stenosis of neural canal of lumbar region (ICD-10 - M99.33) 01/12/2024 USP (current) use of anticoagulants (ICD-10 - Z79.01) The patient was instructed to discontinue aspirin for 6 days prior to the procedure. I made the patient aware that he will be at an increased risk for a thromboembolic event during this time and he is willing to accept this risk. The patient was instructed to notify his primary care physician and/or composing room machinist to obtain clearance prior to discontinuing this medication. 02/03/2024 USP (current) use of anticoagulants (ICD-10 - Z79.01) 03/03/2024 Spondylosis without myelopathy or radiculopathy, lumbar region (ICD-10 - M47.816) 03/03/2024 terminal worker (current) use of anticoagulants (ICD-10 - Z79.01) [...] Coverage End Date [employer] MEDICARE [address] [place] [address] [id number] LAISHA, GRACE Self - patient is the insured MEDICAL (GENERAL) HISTORY Medical History History ICD Code Hypertension Hypothyroidism Diabetes type 2 Gastroesophageal reflux disease (GERD) Renal cell cancer Chronic kidney disease stage 4 Sleep apnea CHF Surgical History Surgery Date(Month/Year) Right total knee arthroplasty 08/2015 Cholecystectomy Hernia repair 2019 Cardiac stent 07/2020
--- OUTSIDE RECORDS SUMMARY | 2024-04-02 22:23 | XMS_ITS | Clinical Summary ---
Author Organization [facility] Address [facility]6 [place] [address] Care Team Providers Care Typewriter Tester Name Role Phone Jeff Strickland MD Primary Care Provider [phone] Allergies Active Allergy Reactions Criticality Noted Date [...] hours as needed for Pain or Fever. 03/29/19 24 Active atorvastatin (LIPITOR) 80 MG tablet Take 1 tablet (80 mg total) by mouth daily. Active Vitamin D3 (CHOLECALCIFER OL) 50 mcg tablet Take 1 tablet (50 mcg total) by mouth daily. Active fenofibrate (TRICOR) 145 MG tablet Take [...] 6 (six) hours as needed for Pain. 04/18/19 24 Active cloNIDine (CATAPRES) 0.1 MG/24HR patch Place 1 patch (0.1 mg total) onto the skin once a week. 04/30/19 24 Active diphenhydrAMIN E-APAP (TYLENOL PM) 25-500 MG Tab tablet Take 1 tablet by mouth nightly at bedtime. Active Multiple Vitamins-Boat Hoist Operator Helper als (PRESERVISION AREDS 2 OR) Take 1 each by mouth 2 (two) times a day. Active tiZANidine (ZANAFLEX) 4 MG tablet Take 1 tablet (4 mg total) by mouth every 8 (eight) hours as needed. 30 tablet 05/03/19 24 Active DULoxetine (CYMBALTA) 30 MG capsule Take 1 capsule (30 mg total) by mouth daily. 03/29/19 24 025 Active Problems Problem Noted Date Diagnosed Date [...] drink = 0.6 oz pur e alcohol) [facility] Utilities Answer Date Recorded In [...] place to sleep or slept in a chcf (including now)? 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
--- OUTSIDE RECORDS SUMMARY | 2024-04-02 22:23 | XMS_ITS | Encounter Summary ---
Author Organization [facility] Address [address] [facility] [place] [address] Care Team Providers Care Pipe Smoker Machine Operator Name Role Phone Deandre Bojorquez MD Unavailable [phone] Jeff Strickland MD Primary Care Provider [phone] Encounter Details Date Type Department Care Team (Late st Contact Info) Description 02/07/2023 Lab Requisition [facility] MAIN LAB [address] [place] [address] Alan Davenport MD [facility] [place] [address] Social History Tobacco Use Types Packs/Day Years [...] Info) Description 08/04/2024 11:30 AM CDT Appointment [facility] MRI [address] [place] [address] Thomas Mendoza MD [address] [facility] 2L [place] [address] 08/04/2024 1:30 PM CDT Office Visit [facility] - Urology [address] [place] [address] Thomas Mendoza MD [address] [facility] 2L [place] [address] documented as of this encounter Procedures Procedure Name Priority Date/Time Associated Diagnosis Comments HOLD HLA SPECIMEN Routine 2023 7:5 8 AM CLASS C TRUCK DRIVER documented in this encounter Results * HOLD HLA SPECIMEN (2023 7:58 AM CLASS C TRUCK DRIVER) Hold HLA Specimen 02/07/2023 9:01 AM CLASS C TRUCK DRIVER [facility] ([facility]) Comment:The Hold HLA specime n has been received into the lab and will be held for 5 years at 4 degrees. Blood BLOOD SPECIMEN / Unknown 2023 7:58 AM CLASS C TRUCK DRIVER 02/07/2023 7:59 AM CLASS C TRUCK DRIVER Alan Davenport MD LAB - BLOOD BANK ORD ERABLES [facility] ([facility]) [address] documented in this encounter Visit Diagnoses Not on filedocumented in this encounter Care Teams Pipe Smoker Machine Operator Relationship Specialty Start Date End Date Jeff Strickland MD [address] [place] [address] PCP - General 03/05/[address] [place] [address] [facility] [address] [place] [address] Orthopedic Surgery 03/28/17 documented as of this encounter
--- OUTSIDE RECORDS SUMMARY | 2024-04-02 22:23 | XMS_ITS | Encounter Summary ---
Author Organization [facility] Address [facility]3 [facility] [place] [address] Care Team Providers Care Development Advisor Name Role Phone Deandre Bojorquez MD Unavailable [phone] Jeff Strickland MD Primary Care Provider [phone] Encounter Details Date Type Department Care Team (Late st Contact Info) Description 03/30/[address] [facility] MAIN LAB [address] [place] [address] Alan Davenport MD [facility] [place] [address] Social History Tobacco Use Types Packs/Day Years [...] 08/04/2024 11:[address] [facility] MRI [address] [place] [address] Thomas Mendoza MD [address] [facility] 2L [place] [address] 08/04/2024 1:30 PM CDT Office Visit [facility] - Urology [address] [place] [address] Thomas Mendoza MD [address] [facility] 2L [place] [address] documented as of this encounter Procedures Procedure Name Priority Date/Time Associated Diagnosis Comments HOLD HLA SPECIMEN Routine 03/25/2024 2:5 1 PM MARKET ASSET PROTECTION MANAGER documented in this encounter Results * HOLD HLA SPECIMEN (03/25/2024 2:51 PM MARKET ASSET PROTECTION MANAGER) Hold HLA Specimen 03/30/2024 4:01 PM MARKET ASSET PROTECTION MANAGER [facility] ([facility]) Comment:The Hold HLA specime n has been received into the lab and will be held for 5 years at 4 degrees. Blood BLOOD SPECIMEN / Unknown 03/25/2024 2:51 PM MARKET ASSET PROTECTION MANAGER 03/30/2024 2:51 PM MARKET ASSET PROTECTION MANAGER Alan Davenport MD LAB - BLOOD BANK ORD ERABLES [facility] ([facility]) [address] documented in this encounter Visit Diagnoses Not on filedocumented in this encounter Care Teams Development Advisor Relationship Specialty Start Date End Date Jeff Strickland MD [address] [place] [address] PCP - General 03/05/18 [place] [address] [facility] [address] [place] [address] Orthopedic Surgery 03/28/17 documented as of this encounter
--- OUTSIDE RECORDS SUMMARY | 2024-04-02 22:23 | XMS_ITS ---
Author Organization [facility] Address [address] [facility] [place] [address] Care Team Providers Care Mopper Name Role Phone DONNIE WOOD MD Primary Care Provider Unavaila Sergio Trujillo Unavailable [phone] Encounters Encounter Location Date Provider Diagnosis [facility] [address] [facility] [place] [address] [place] [address] 03/31/2024 Sergio Rivera PLAN OF TREATMENT No Information
--- OUTSIDE RECORDS SUMMARY | 2024-04-02 22:23 | XMS_ITS | Clinical Summary ---
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 Active aspirin (ANGELLA) 325 mg tablet Take 325 mg by mouth daily. Active Vit C-Vit S-Qnwiby-GyVm-L utein (PRESERVISION) 226 mg-200 unit -5 mg-0.8 [...] Department Care Team Description 03/03/2024 2:05 PM NUMERICAL ANALYSIS GROUP MANAGER Ancillary Procedure [facility] [address] [place] [address] Sergio Rivera MD Pain in [...] Comments Blood Pressure 167/77 02/04/2019 9:16 AM NUMERICAL ANALYSIS GROUP MANAGER Pulse 64 02/04/2019 9:16 AM NUMERICAL ANALYSIS GROUP MANAGER Temperature 36.5 C (97.7 F) 02/04/2019 9:16 AM NUMERICAL ANALYSIS GROUP MANAGER Respiratory Rate 16 02/04/2019 9:16 AM NUMERICAL ANALYSIS GROUP MANAGER Oxygen Saturation 97% 02/04/2019 9:16 AM NUMERICAL ANALYSIS GROUP MANAGER Inhaled Oxygen Concentration - - Weight 113.4 kg (250 lb) 02/04/2019 9:16 AM NUMERICAL ANALYSIS GROUP MANAGER Height 175.3 cm (5' 9 ) 02/04/2019 9:16 AM NUMERICAL ANALYSIS GROUP MANAGER Body Mass Index 36.92 02/04/2019 9:16 AM NUMERICAL ANALYSIS GROUP MANAGER Plan of Treatment Health Maintenance Due Date [...] 2+ VW BILAT Routine 03/03/2024 2:26 PM NUMERICAL ANALYSIS GROUP MANAGER Pain in shoulder region, left Pain in shoulder region, right from Last 3 Months Results * XR SHOULDER 2+ VW BILAT (03/03/2024 2:26 PM NUMERICAL ANALYSIS GROUP MANAGER) Anatomical Region Laterality Modality Upper Extremity Computed Radiogr aphy 03/03/2024 2:27 PM NUMERICAL ANALYSIS GROUP MANAGER Impressions 03/03/2024 2:34 PM NUMERICAL ANALYSIS GROUP MANAGER IMPRESSION: 1. 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 Narrative 03/03/2024 2:34 PM NUMERICAL ANALYSIS GROUP MANAGER EXAM: XR SHOULDER 2+ VW BILAT DATE: [...] Last 3 Months Insurance [employer] MEDICARE SUPPLEMENT [address] [place], [place] [id number] [facility] [place] [address] BLUE ACCESS/TRUE BLUE PPO Care Teams Crib Attendant Relationship Specialty Start Date End Date Jeff Strickland MD [address] [facility] [address] [place] [address] PCP - General Family Practice 01/01/19
[2024-04-02 22:30] LABS: INR 1.1; Partial Thromboplastin Time 29.8 Seconds (22.3-36.8); Prothrombin Time 14.2 Seconds (11.1-14.7)
[2024-04-02 22:35] LABS: Alanine Aminotransferase 19 U/L (6-50); Albumin Level 3.3 g/dL (3.5-5.1); Alkaline Phosphatase 69 U/L (38-126); Anion Gap 12 mmol/L (4-12); Aspartate Amino Transferase 24 U/L (17-59); Bilirubin,Total 0.5 mg/dL (0.2-1.3); Blood Urea Nitrogen 45 mg/dL (9-20); Calcium 8.9 mg/dL (8.4-10.2); Carbon Dioxide 30 mmol/L (22-30); Chloride 96 mmol/L (98-107); Estimated CRCL calculation 8 ml/min; Estimated Glomerular Filt Rate 6; Glucose 147 mg/dL (65-110); Potassium 3.3 mmol/L (3.4-5.0); Sodium 138 mmol/L (137-145)
[2024-04-02 22:36] LABS: Lactic Acid Reflex 2.1 mmol/L (0.7-2.0)
--- NOTE | 2024-04-02 22:36 | ED.AMS ---
HPI - Altered Mental Status General Chief Complaint: Altered Mental Status Stated Complaint: AMS Time Seen by Provider: 04/02/24 21:18 History of Present Illness HPI narrative: Patient presents here with altered mental status, according to he usually gets slightly cold after dinner and ate it was the same today, but she noticed that he was shivering more and seemed a little slow to words. Patient able to answer some of my questions, including that he has no pain anywhere, nausea or vomiting Related Data Home Medications ?Medication ?Instructions ?Recorded ?Confirmed ?Last Taken ?Type aspirin 81 mg tablet,delayed 81 mg PO DAILY 02/01/19 03/13/24 09/02/23 08:00 History release (Sami Low Dose Aspirin) vit C 250 mg-vit E 200 unit-zinc 1 tablet PO Q12H 02/01/19 03/13/24 09/02/23 08:00 History 12.5 mg-copper 1 [id number] tablet (ICaps AREDS2 (copper citrate)) blood sugar diagnostic (OneTouch 05/14/19 03/13/24 Unknown History Ultra Blue Test Strip) carvedilol 25 mg tablet (Coreg) 25 mg PO Q12H 09/06/19 03/13/24 09/02/23 08:00 History insulin glargine 100 unit/mL (3 30 unit subcut Q12H 10/12/21 03/13/24 09/02/23 08:00 History mL) subcutaneous pen (Basaglar KwikPen U-100 Insulin) lisinopril 20 mg tablet 20 mg PO BID 08/12/22 03/13/24 09/02/23 08:00 History cholecalciferol (vitamin D3) 125 125 mcg PO QNOON 10/01/22 03/13/24 09/01/23 History mcg (5,000 unit) tablet (Vitamin D3) folic acid 0.8 mg-vit B comp with 1 tablet PO QNOON 10/01/22 03/13/24 09/01/23 13:00 History G-tcsi-azdrlho D3 2,000 unit tablet (Dialyvite 800-Ultra D) furosemide 80 mg tablet 160 mg PO BID 10/01/22 03/13/24 09/24/23 History insulin aspart U-100 100 unit/mL See Rx Instructions .Route .COMPLEX 0803/13/24 09/02/23 08:00 History (3 mL) subcutaneous pen (Novolog FlexPen U-100 Insulin aspart) diphenhydramine 25 2 tablet PO HS 03/12/23 03/13/24 09/01/23 21:00 History mg-acetaminophen 500 mg tablet (Tylenol PM Extra Strength) atorvastatin 80 mg tablet 80 mg PO HS 09/02/23 03/13/24 09/01/23 21:00 History diltiazem HCl 120 mg 120 mg PO Q12H 09/02/23 03/13/24 09/02/23 08:00 History capsule,extended release 12 hr levothyroxine 112 mcg tablet 112 mcg PO DAILY 09/02/23 03/13/24 09/02/23 08:00 History clonidine 0.2 mg/24 hr weekly 1 patch transdermal WEEKLY 09/25/23 03/13/24 03/13/24 History transdermal patch hydralazine 10 mg tablet 30 mg PO TID 10/15/23 03/14/24 Unknown History tadalafil 5 mg tablet 5 mg PO HS 11/15/23 03/13/24 Unknown History calcium acetate(phosphat bind) 667 2,001 mg PO TIDWM 03/13/24 03/13/24 Unknown History mg capsule fenofibrate nanocrystallized 145 145 mg PO QNOON 03/13/24 03/13/24 Unknown History mg tablet gabapentin 300 mg capsule 300 mg PO Q8H 03/13/24 03/13/24 Unknown History hydrocodone 5 mg-acetaminophen 325 1 tablet PO Q6H PRN pain (scale 03/13/24 03/13/24 Unknown History mg tablet score 4-6) metolazone 5 mg tablet 5 mg PO DAILY 03/13/24 03/13/24 Unknown History pantoprazole 40 mg tablet,delayed 40 mg PO Q12H 03/13/24 03/13/24 Unknown History release Allergies Allergy/AdvReac Type Severity Reaction Status Date / Time oxycodone AdvReac Unknown Hallucinati Verified 03/31/24 13:32 ng Review of Systems Review of Systems: All systems reviewed & are unremarkable except as noted in HPI and below PMFSH Past Medical History Medical History C. difficile colitis Arthritis Kidney stones Benign prostatic hyperplasia Coronary artery disease End-stage renal disease on peritoneal dialysis Obstructive sleep apnea Insulin dependent type 2 diabetes mellitus Renal cell carcinoma Status post partial left nephrectomy. Dyslipidemia Clostridium difficile infection Gastroesophageal reflux disease Depression with anxiety Hypothyroidism Cirrhosis Pituitary tumor Status post resection. Anemia Chronic diastolic (congestive) heart failure Hypertension Surgical History Surgical History History of open reduction and internal fixation (ORIF) procedure (11/2022) Screw fixation of sternal fracture. History of colonoscopy with polypectomy History of umbilical hernia repair History of inguinal hernia repair History of coronary artery stent placement History of cardiac catheterization (08/2020) Stent x2 to the LAD. History of arthroplasty of right knee History of cataract extraction History of pituitary surgery (11/2021) History of partial nephrectomy Partial left nephrectomy for renal cell carcinoma. History of cholecystectomy (2007) Family History Family History Mother Aneurysm Hypertension Cerebrovascular accident Father Carcinoma of colon Social History Social History Social History: Surrogate medical decision maker: Harriet Carl, spouse. Code status: Full code. Smoking status: Never smoker Second hand tobacco smoke exposure: No Alcohol intake: never Alcohol use details: rare, holidays Substance use: never Substance use type: does not use Do You Feel Safe in your Home?: Yes Lack of Transportation: No Lack of Food: Never True Current Housing: I Have Housing Concerned About Future Housing: No Difficulty Paying Gas/Electric Bills: No Difficulty Paying for Meds: No Currently Unemployed: No Education: Decline to Answer Difficulty w/ Childcare or Family Care: No Living arrangements: with family Additional living arrangements comments: Lives with spouse in [place]. Occupation/Education: retired Additional occupation/education comments: [employer]. Spiritual care concerns: No Agree to blood products: Yes Exam Narrative: EXAMINATION OF ORGAN SYSTEMS/BODY AREAS: Constitutional: Vital signs per nursing GENERAL:[No acute distress, non-toxic appearing.] HEAD: Normal with no signs of head trauma. EYES: EOMI, conjunctiva normal ENT: Hearing grossly intact LUNGS: Nonlabored breathing. HEART: [Regular rate and rhythm] ABD: [Soft], [nontender to palpation] EXT: Normal range of motion SKIN: [No rashes or lesions.] Peritoneal dialysis port appears clean NEURO: [Alert . No gross focal sensory or strength deficits.] PSYCH: Normal affect Course Vital Signs Vital signs: Vital Signs Temperature 103.1 F H 04/02/24 21:17 Pulse Rate 87 04/02/24 21:17 Respiratory Rate 23 H 04/02/24 21:17 Blood Pressure 158/74 H 04/02/24 21:17 Pulse Oximetry 97 04/02/24 21:17 Oxygen Delivery Room Air 04/02/24 21:17 Temperature 102.9 F H 04/02/24 22:46 Pulse Rate 85 04/03/24 00:00 Respiratory Rate 23 H 04/03/24 00:00 Blood Pressure 179/72 H 04/03/24 00:00 Pulse Oximetry 100 04/03/24 00:00 Oxygen Delivery Room Air 04/02/24 21:36 MDM - Altered Mental Status MDM Narrative Medical decision making narrative: Patient who is on peritoneal dialysis presents here with fevers, chills, altered mental status. On evaluation he denies any complaints, he is well-appearing in no distress, however he is slow to answer questions which per is unusual for him. He is febrile. Broad septic w/u initiated. CXR without obvious consolidation on my independent interpretation; UA not really c/w UTI. Viral swabs neg. At this point I do not have an obvious source but he is a peritoneal dialysis patient so I did feels necessary to cover him with cefepime and admit. Patient and agreeable to this plan. Discussed with hospitalist for admission. Lab Data 04/02/24 22:12 04/02/24 22:12 Labs: Lab Results 04/02/24 04/02/24 04/02/24 Range/Units 21:59 22:12 22:36 WBC 11.4 H (4.5-10.0) K/mm3 RBC 3.13 L (4.6-6.20) M/mm3 Hgb 9.7 L (14.0-18.0) g/dL Hct 29.7 L (42.0-52.0) % MCV 94.9 (80-100) fl MCH 31.0 (26-34) pg MCHC 32.7 (32-36) g/dl RDW 16.0 H (11.5-14.5) % Plt Count 176 (150-375) k/mm3 MPV 10.8 H (7.4-10.4) fl Immature Gran % (Auto) 2.3 H (0-0.5) % Neut % (Auto) 78.9 H (45.5-73.1) % Lymph % (Auto) 6.1 L (18.3-44.2) % [place] % (Auto) 12.4 H (2.6-8.5) % Eos % (Auto) 0.2 (0-4.4) % Baso % (Auto) 0.1 L (0.2-1.2) % Lymph # (Auto) 0.70 L (0.9-3.2) K/mm3 [place] # (Auto) 1.4 H (0.1-0.6) K/mm3 Eos # (Auto) 0.0 (0-0.3) K/mm3 Baso # (Auto) 0.0 (0.0-0.1) K/mm3 Abs Immat Gran (auto) 0.26 H (0.00-0.031) K/mm3 Absolute Neuts (auto) 9.0 H (1.3-6.7) K/mm3 Absolute Nucleated RBC 0.000 (0.0-0.012) K/mm3 Nucleated RBC % 0.0 (0.0-0.2) % PT 14.2 (11.1-14.7) Seconds INR 1.1 APTT 29.8 (22.3-36.8) Seconds Sodium 138 (137-145) mmol/L Potassium 3.3 L (3.4-5.0) mmol/L Chloride 96 L (98-107) mmol/L Carbon Dioxide 30 (22-30) mmol/L Anion Gap 12 (4-12) mmol/L BUN 45 H (9-20) mg/dL Creatinine 9.51 H (0.7-1.3) mg/dL Estim Creat Clear Calc 8 ml/min Estimated GFR 6 L (59 - ) Glucose 147 H (65-110) mg/dL Lactic Acid 2.1 H (0.7-2.0) mmol/L Calcium 8.9 (8.4-10.2) mg/dL Total Bilirubin 0.5 (0.2-1.3) mg/dL AST 24 (17-59) U/L ALT 19 (6-50) U/L Alkaline Phosphatase 69 (38-126) U/L C-Reactive Protein Cancelled Total Protein 7.0 (6.3-8.2) g/dL Albumin 3.3 L (3.5-5.1) g/dL Urine Color Yellow (Yellow) Urine Appearance Clear (Clear) Urine pH 6.5 (5.0-9.0) Ur Specific [place] 1.011 (1.001-1.035) Urine Protein 2+ H (Negative) mg/dL Urine Glucose (UA) 1+ H (Negative) mg/dL Urine Ketones Negative (Negative) mg/dL Ur Blood (Man) Negative (Negative) Urine Nitrate Negative (Negative) Urine Bilirubin Negative (Negative) Urine Urobilinogen 0.2 (<2.0) mg/dL Leukocyte Esterase Rfl Trace H (Negative) MOLLY/UL Urine RBC 0-2 (0-2) /hpf Urine WBC 6-10 H (0-3) /hpf Ur Squamous Epith Cells None seen (Few) /hpf Urine Bacteria None seen /hpf Urine Casts 0-2 Influenza A (RT-PCR) Negative (Negative) Influenza B (RT-PCR) Negative (Negative) RSV (RT-PCR) Negative (Negative) SARS-CoV-2 RNA (RT-PCR) Negative (Negative) Critical Care Time Critical Care Time Critical Care Time: Yes Total Critical Care Time: 31 Discharge Plan Discharge Clinical Impression: Sepsis Patient Disposition: Still a Patient Condition: Serious Patient Language: Filipino Prescriptions: No Action tadalafil 5 mg tablet 5 mg PO HS aspirin [Sami Low Dose Aspirin] 81 mg Tablet,Delayed Release (Dr/Ec) 81 mg PO DAILY ICaps AREDS2 (copper citrate) 250 mg-200 unit -12.5 mg-1 mg Tablet 1 tablet PO Q12H carvedilol [Coreg] 25 mg tablet 25 mg PO Q12H (DME) pen needle, diabetic [BD Ultra-Fine Micro Pen Needle] 32 gauge x 1/4 needle See Rx Instructions .ROUTE .MEDSUPPLY Qty: 200 11RF Rx Instructions: inject five times daily insulin glargine [Basaglar KwikPen U-100 Insulin] 100 unit/mL (3 mL) insulin pen 30 unit subcut Q12H Rx Instructions: morning and hs lisinopril 20 mg tablet 20 mg PO BID lansoprazole 30 mg capsule,delayed release(DR/EC) 30 mg PO BID Qty: 60 3RF metoclopramide HCl [Reglan] 10 mg tablet 10 mg PO BID Qty: 60 3RF (DME) OneTouch Ultra Blue Test Strip Strip See Rx Instructions .ROUTE .MEDSUPPLY Rx Instructions: Test blood sugar three times per day. clonidine 0.2 mg/24 hr patch weekly 1 patch transdermal WEEKLY insulin aspart U-100 [Novolog FlexPen U-100 Insulin] 100 unit/mL (3 mL) insulin pen See Rx Instructions .ROUTE .COMPLEX Rx Instructions: sliding scale tidwm cholecalciferol (vitamin D3) [Vitamin D3] 125 mcg (5,000 unit) Tablet 125 mcg PO QNOON Dialyvite 800-Ultra D 0.8-2,000 mg-unit Tablet 1 tablet PO QNOON furosemide 80 mg Tablet 160 mg PO BID diphenhydramine-acetaminophen [Tylenol PM Extra Strength] 25-500 mg Tablet 2 tablet PO HS diltiazem HCl 120 mg capsule,extended release 12 hr 120 mg PO Q12H atorvastatin 80 mg tablet 80 mg PO HS levothyroxine 112 mcg tablet 112 mcg PO DAILY metolazone 5 mg tablet 5 mg PO DAILY pantoprazole 40 mg tablet,delayed release (DR/EC) 40 mg PO Q12H hydrocodone-acetaminophen 5-325 mg tablet 1 tablet PO Q6H PRN (Reason: pain (scale score 4-6)) gabapentin 300 mg capsule 300 mg PO Q8H fenofibrate nanocrystallized 145 mg tablet 145 mg PO QNOON calcium acetate(phosphat bind) 667 mg capsule 2,001 mg PO TIDWM Dificid 200 mg Tablet 200 mg PO Q12HR Qty: 14 0RF (DME) blood-glucose meter [PopularoTouch Ultra2 Meter] Misc See Rx Instructions .ROUTE .MEDSUPPLY Qty: 1 0RF Rx Instructions: As directed (DME) lancets [OneTouch Delica Lancets] 30 gauge misc See Rx Instructions .ROUTE .MEDSUPPLY Qty: 100 3RF Rx Instructions: As directed hydralazine 10 mg tablet 30 mg PO TID lorazepam [Ativan] 0.5 mg tablet 0.5 mg PO HS PRN (Reason: Anxiety) Qty: 30 0RF Follow-up/Referrals: Jeff Strickland MD [Primary Care Provider] -
[2024-04-02 22:40] LABS: Influenza A QL RT-PCR Negative (Negative); Influenza B QL RT-PCR Negative (Negative); RSV RNA, RT-PCR Negative (Negative); SARS-CoV-2 RNA PCR Negative (Negative)
[2024-04-02 22:47] LABS: Add Urine Microscopic? YES; Appearance Urine Clear (Clear); Bacteria Urine None Seen /hpf; Bilirubin Urine Negative (Negative); Blood Urine Negative (Negative); Color Urine Yellow (Yellow); Glucose Urine UA 1+ mg/dL (Negative); Ketones Urine Negative (Negative); Leukocyte Esterase Ur Trace LEU/UL (Negative); Nitrate Urine Negative (Negative); Non Pathogenic Casts 0-2; Protein Urine 2+ mg/dL (Negative); RBC Urine 0-2 /hpf (0-2); Specific Grav Ur 1.011 (1.001-1.035); Squamous Epithelial Cell Urine None Seen /hpf (Few); Urobilinogen Urine 0.2 mg/dL (<2.0); pH Urine 6.5 (5.0-9.0)
[2024-04-03] VITALS: BP 179/72; PULSE 85; RESP 23; O2SAT 100
[2024-04-03] MEDS: cefTRIAXone 2 GM/NS 100 ML 2 GM/100 ML BAG IVPB ×2 (00:33→23:43)
[2024-04-03 01:17] LABS: Reflex Lactic Acid Yes or No Add Lactic
[2024-04-03 01:45] VITALS: BP 177/82; PULSE 83; RESP 24; O2SAT 97
--- OUTSIDE RECORDS SUMMARY | 2024-04-03 02:38 | XMS_ITS | Encounter Summary ---
Author Organization [facility] Address [facility] [place] [address] Care Team Providers Care Cook Chief Name Role Phone Deandre Bojorquez MD Unavailable Jeff Strickland MD Primary Care Provider Encounter Details Date Type Department Care Team (Late st Contact Info) Description 07/31/2023 Lab Requisition [facility] [address] [place] [id number] Alan Davenport MD [facility] [address] Social History Tobacco Use Types Packs/Day Years [...] CDT Appointment [facility] MRI [address] [place] [address] Thomas Mendoza MD [address] [facility] 2L [place] [phone] 08/04/2024 1:30 PM CDT Office Visit [facility] - Urology [address] [place] [address] Thomas Mendoza MD [address] [facility] 2L [place] [address] documented as of this encounter Procedures Procedure Name Priority Date/Time Associated Diagnosis Comments HOLD HLA SPECIMEN Routine 07/23/2023 2:0 5 PM CDT documented in this encounter Results * HOLD HLA SPECIMEN (07/23/2023 2:05 PM CDT) Hold HLA Specimen 07/31/2023 3:32 PM CDT [facility] Comment:The Hold HLA specime n has been received into the lab and will be held for 5 years at 4 degrees. Blood BLOOD SPECIMEN / Unknown 07/23/2023 2:05 PM CDT 07/31/2023 2:06 PM CDT Alan Davenport MD LAB - BLOOD BANK ORD ERABLES [facility] ([facility]) [address] [place], [place] [id number] [place] [address] documented in this encounter Visit Diagnoses Not on filedocumented in this encounter Care Teams Cook Chief Relationship Specialty Start Date End Date Jeff Strickland MD [address] [place] [address] PCP - General 03/05/18 [place] [id number] [address] Orthopedic Surgery 03/28/17 documented as of this encounter
--- OUTSIDE RECORDS SUMMARY | 2024-04-03 02:38 | XMS_ITS ---
Author Organization [facility] Address [facility] [place] [address] Care Team Providers Care Wind Turbine Sheet Metal Worker Name Role Phone Jeff Strickland MD Primary Care Provider Chan Nicholas MD Unavailable [phone] Alan Mccall MD Unavailable [phone] Pepito Haro MD PhD Unavailable [phone] Solange Guido MD Unavailable [phone] Active Problems Problem Noted Date Diagnosed Date [...] PDT. - Patient returned to [facility] for ongoing care and follow up Assessment & Plan (03/09/2024 6:25 PM RADIO MESSAGE ROUTER): Vision OD trends mild improvement, though still [...] that genetic results would not change management manager. Given we have exhausted available treatment without VA improvement, and CME is improving spontaneously, patient can follow in [facility]. Assessment & Plan (10/08/2023 2:51 PM CDT): [...] weeks and have patient return to [facility] retina in 4 weeks for repeat [...] End-stage renal disease on peritoneal dialysis ( [facility]) 04/24/2023 Hypertensive renal failure 04/24/2023 [...] 03/26/2021 Assessment & Plan (03/26/2021 1:17 PM RADIO MESSAGE ROUTER): Enlarged mild sella turcica on a routine [...] units Assessment & Plan (03/26/2021 1:17 PM RADIO MESSAGE ROUTER): Chronic, uncontrolled, improving A1c today 7.7 % [...] WNL Assessment & Plan (03/26/2021 1:16 PM RADIO MESSAGE ROUTER): Pt currently on Levothyroxine 112 mcg oral [...] 11/18/2018 Assessment & Plan (01/21/2019 2:02 PM RADIO MESSAGE ROUTER): Symptomatic. Will request for esophageal manometry. Continue [...] (congestive heart failure) ([facility]) 05/18/2018 SHABNAM on CPAP 05/18/2018 Obesity (BMI 30-39.9) 05/18/2018 Stage 5 chronic kidney disease (CMS/HCC) 019 Hyperlipidemia associated with type 2 diabetes eboni gonzalez 12/03/2017 Assessment & Plan (10/30/2021 8:35 PM CDT): On statin therapy Tolerating well Assessment & Plan (03/26/2021 1:16 PM RADIO MESSAGE ROUTER): On statin therapy Tolerating well Last lipid [...] nephrectomy. 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 [id number] Current Oncology Plans No current plan information found. Past Plans No past plan information found. Radiation Treatments * No radiation treatments are documented for this patient in [facility]. Treatments may have been administered in another [...] were not included. Kendall Carl 1955 Referring Rewind Operator: Alan Mccall Dialysis Info: NOD GFR 13 Type: Time: (Not currently on dialysis) days Blood Type: O NEG Body mass index is 37.36 kg/m . ALERTS Care Nurse Rn: needs to establish Past Medical History: Diagnosis Date Arthropathy RA. Dr Strickland manages. 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 CKD (chronic kidney disease), stage V Community acquired pneumonia 2018 [facility] hospitalized. Diabetes mellitus 20 years. Lantus pen. Esophageal reflux takes med Hypercholesteremia 5-10 yrs meds Hypertension takes meds Hypothyroidism meds 20 years Kidney stones 5-6 years ago had 2 in the same year. Malignancy right kidney 2012 Obstructive sleep apnea 3 years. [facility]. Cannont remember doctors name Renal cell [...] file Gets together: Not on file Attends yarsanism service: Not on file Active member of [...] It is the impression of this social sciences research scientist that Kendall Carl has several positive factors for Kidney transplant candidacy from a psychosocial perspective. Patient appears to have appropriate knowledge of illness. Patient has sufficient insurance coverage and stable financial situation for post transplant needs. No concerns regarding substance abuse, legal issues, or mental health needs. Patient has adequate support system and appropriate discharge plan. Plan: stock house worker to provide supportive services as needed. Patient appears to be a reasonable candidate for transplant from a psychosocial perspective. -Post transplant arrangement forms are needed prior to being listed. -Updated toxicology results needed, per protocol Psychiatric Consult Recommended: No Transplant Ladies Underwear Operator: Joy Tam LCSW RD: 11/09/2019 BMI= [...] 11/18/201803/25 Assessment & Plan (01/21/2019 2:02 PM RADIO MESSAGE ROUTER): The pain is persistent. The patient described [...] has had extensive cardiac workup by the technical support assistant including coronary angiogram. He has chest pain [...] to hyp ertension ([facility]) 05/18/2018 03/25/2023 Poor diet 05/18/2018 03/25/2023 Dizziness 05/18/2018 03/25/2023 Type 2 diabetes mellitus wit hout complication ([facility]) 12/03/2017 03/25/2023 Kidney disease 08/06/2017 03/25/2023 Obstructive sleep apnea 10/22/201607/2023
--- OUTSIDE RECORDS SUMMARY | 2024-04-03 02:38 | XMS_ITS | Encounter Summary ---
Author Organization [facility] Address [facility] [place] [address] Care Team Providers Care Services Rep Name Role Phone Deandre Bojorquez MD Unavailable [phone] Jeff Strickland MD Primary Care Provider [phone] Encounter Details Date Type Department Care Team (Late st Contact Info) Description 02/04/2024 Lab Requisition [facility] [address] [place] [phone] Alan Davenport MD [facility] OF [place] [address] Social History Tobacco Use Types Packs/Day Years [...] Description 08/04/2024 11:30 AM CDT Appointment [facility] MRI [address] [place] [address] Thomas Mendoza MD [address] [facility] 2L [place] [address] 08/04/2024 1:30 PM CDT Office Visit [facility] - Urology [address] [place] [address] Thomas Mendoza MD [address] [facility] 2L [place] [address] documented as of this encounter Procedures Procedure Name Priority Date/Time Associated Diagnosis Comments HOLD HLA SPECIMEN Routine 01/27/2024 3:2 3 PM FACTORY MAINTENANCE TECHNICIAN documented in this encounter Results * HOLD HLA SPECIMEN (01/27/2024 3:23 PM FACTORY MAINTENANCE TECHNICIAN) Hold HLA Specimen 02/04/2024 4:31 PM FACTORY MAINTENANCE TECHNICIAN [facility] ([facility]) Comment:The Hold HLA specime n has been received into the lab and will be held for 5 years at 4 degrees. Blood BLOOD SPECIMEN / Unknown 01/27/2024 3:23 PM FACTORY MAINTENANCE TECHNICIAN 02/04/2024 3:23 PM FACTORY MAINTENANCE TECHNICIAN Alan Davenport MD LAB - BLOOD BANK ORD ERABLES [facility] ([facility]) [address] documented in this encounter Visit Diagnoses Not on filedocumented in this encounter Care Teams Services Rep Relationship Specialty Start Date End Date Jeff Strickland MD [address] [place] [address] PCP - General 03/05/18 [place] [address] [facility] [address] [place] [address] Orthopedic Surgery 03/28/17 documented as of this encounter
--- OUTSIDE RECORDS SUMMARY | 2024-04-03 02:39 | XMS_ITS | Encounter Summary ---
Author Organization [facility] Address [facility] [place] [address] Care Team Providers Care Latent Print Examiner Name Role Phone Deandre Bojorquez MD Unavailable [phone] Jeff Strickland MD Primary Care Provider [phone] Encounter Details Date Type Department Care Team (Late st Contact Info) Description 09/30/2023 Lab Requisition [facility] MAIN LAB [address] [place] [phone] Alan Davenport MD [facility] [place] [address] Social History Tobacco Use Types Packs/Day Years [...] [facility] MRI [address] [place] [address] Thomas Mendoza MD [address] [facility] 2L [place] [address] 08/04/2024 1:30 PM CDT Office Visit [facility] - Urology [address] [place] [address] Thomas Mendoza MD [address] [facility] 2L [place] [address] documented as of this encounter Procedures Procedure Name Priority Date/Time Associated Diagnosis Comments HOLD HLA SPECIMEN Routine 09/24/2023 3:2 7 PM CDT documented in this encounter Results * HOLD HLA SPECIMEN (09/24/2023 3:27 PM CDT) Hold HLA Specimen 09/30/2023 4:32 PM CDT [facility]) Comment:The Hold HLA specime n has been received into the lab and will be held for 5 years at 4 degrees. Blood BLOOD SPECIMEN / Unknown 09/24/2023 3:27 PM CDT 09/30/2023 3:27 PM CDT Alan Davenport MD LAB - BLOOD BANK ORD ERABLES [facility] ([facility]) [address] [place], [place] [id number] [place] [address] documented in this encounter Visit Diagnoses Not on filedocumented in this encounter Care Teams Latent Print Examiner Relationship Specialty Start Date End Date Jeff Strickland MD [address] [place] [address] PCP - General 03/05/18 [place] [address] [address] Orthopedic Surgery 03/28/17 documented as of this encounter
--- OUTSIDE RECORDS SUMMARY | 2024-04-03 02:39 | XMS_ITS | Encounter Summary ---
Author Organization [facility] Address [address] [place] [address] Phone Care Team Providers Care High Wire Artist Name Role Phone Jeff Strickland MD Primary Care Provider Chan Nicholas MD Unavailable [phone] Alan Mccall MD Unavailable [phone] Lorna Lantigua MD Unavailable [phone] Juliette Savage RN Unavailable Pepito Haro MD PhD Unavailable [phone] Solange Guido MD Unavailable Encounter Details Date Type Department Care Team (Late st Contact Info) Description 05/02/2021 Ophth Exam [facility] Ophthalmology [address] [place] [address] 1st [place] [address] Corina Ventura MD PhD [address] [address] Social History Tobacco Use Types [...] on file Legal Sex Male 2:23 AM PAPER BUNDLER Gender Identity Not on file Sexual Orientation [...] COVID: Suspected 03/24/2023 03/24/2023 03/24/2023 5:45 PM PAPER BUNDLER COVID19 03/24/2023 03/24/2023 04/08/2023 3:06 AM PAPER BUNDLER COVID: Recovered Comment:Added based on recent COVID [...] arcade Normal Periphery Normal Normal Care Teams High Wire Artist Relationship Specialty Start Date End Date Jeff Strickland MD [address] [place] [address] PCP - General Family Medicine 04/02/18 Chan Nicholas MD [address] [place] [address] Consulting Physician Gastroenterology 11/24/18 Alan Mccall MD [address] [place] [address] Referring Physician Nephrology 11/24/18 Lorna Lantigua MD [address] [place] [address] Consulting Physician Cardiology 11/24/18 07/22/23 Juliette Savage, RN [address] [place] [address] Nurse Navigator 06/04/21 03/14/22 Pepito Haro MD PhD [address] [place] [address] Consulting Physician Neurosurgery 12/03/22 Solange Guido MD [address] [facility] [address] [place] [address] Referring Physician Cardiovascular Disease 07/23/23 documented as of this encounter
--- OUTSIDE RECORDS SUMMARY | 2024-04-03 02:39 | XMS_ITS ---
Author Organization [facility] Address [address] [place] [address] Care Team Providers Care Weather Analyst Name Role Phone Jeff Strickland MD Primary Care Provider Chan Nicholas MD Unavailable [phone] Alan Mccall MD Unavailable [phone] Pepito Haro MD PhD Unavailable [phone] Solange Guido MD Unavailable Dialysis Access Sites [...] - BOTH EYES Routine 03/09/2024 2:00 PM FARM APPRAISER Cystoid macular edema of both eyes POCT [...] day with meals 06/27/19 21 Active vit C,S-Zv-botpa-lutein- zeaxan 250-90-40-1 mg capsule Take 1 capsule [...] day as needed (nasal irrigation) Active FA-vit Axpru-N-xyjr-vitamin D3 (Dialyvite 800-Ultra D) 0.8-2,000 mg-unit tablet [...] up Assessment & Plan (03/09/2024 6:25 PM FARM APPRAISER): Vision OD trends mild improvement, though still [...] We discussed that genetic results would not casino change attendant. Given we have exhausted available [...] 2 weeks and have patient return to [facility] retina in 4 weeks for [...] 03/26/2021 Assessment & Plan (03/26/2021 1:17 PM FARM APPRAISER): Enlarged mild sella turcica on a routine [...] units Assessment & Plan (03/26/2021 1:17 PM FARM APPRAISER): Chronic, uncontrolled, improving A1c today 7.7 % [...] WNL Assessment & Plan (03/26/2021 1:16 PM FARM APPRAISER): Pt currently on Levothyroxine 112 mcg oral [...] 11/18/2018 Assessment & Plan (01/21/2019 2:02 PM FARM APPRAISER): Symptomatic. Will request for esophageal manometry. Continue [...] 06/09/2018 Chronic diastolic CHF (congestive heart failure) ([facility]) 05/18/2018 SHABNAM on CPAP 05/18/2018 Obesity (BMI 30-39.9) 05/18/2018 Stage 5 chronic kidney disease ([facility]) 019 Hyperlipidemia associated with type 2 diabetes eboni gonzalez 12/03/2017 Assessment & Plan (10/30/2021 8:35 PM CDT): On statin therapy Tolerating well Assessment & Plan (03/26/2021 1:16 PM FARM APPRAISER): On statin therapy Tolerating well Last lipid [...] nephrectomy. 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 [id number] Immunizations Name Administration Dates Next Due Hep [...] = 0.6 oz pur e alcohol) rarely [employer] Utilities Answer Date Recorded In the past 12 months has [email or web address], gas, oil, or water [employer] threatened to shut off services in your [...] often do you attend chur ch or amish services? Never 03/25/2023 Do you belong to [...] on file Legal Sex Male 2:23 AM FARM APPRAISER Gender Identity Not on file Sexual Orientation [...] OU - Both Eyes (03/09/2024 2:00 PM FARM APPRAISER) Central Macular Thickness OS 227 micrometers CONTINUUM Central Macular Thickness OD 479 micrometers CONTINUUM Anatomical Region Laterality Modality Head Optical Coherenc e Tomography Narrative 03/16/2024 12:53 PM FARM APPRAISER Right Eye Quality was good. Scan locations [...] was last reviewed 2020. Testing performed by: [facility], [address] [place] [address]., [address] Blood 08/11/2023 7:50 PM CDT 08/11/2023 8:05 PM CDT us Leni Cervantes MD LAB BLOOD ORDERABLES Kenna l Result [facility] [facility] Department [place] [address] * (ABNORMAL) Lipid panel (11/30/2022 [...] revised on 2017. Triglycerides 439(H) <=149 mg/dL [facility] Comment: Interpretive Data Ages < or [...] revised on 2017. HDL 26(L) >=40 mg/dL [facility] Comment: Interpretive Data Ages < or [...] on 2017. LDL, calculated See Comment <=129 [facility] Comment: Unable to calculate LDL due [...] BLOOD ORDERABLES Final Result [facility] [place] [address] from Last 3 Months or Most Recently Relevant to Health Maintenance
--- OUTSIDE RECORDS SUMMARY | 2024-04-03 02:39 | XMS_ITS | Encounter Summary ---
Author Organization [facility] Address [address] [place] [address] Care Team Providers Care Title One Kindergarten Teacher Name Role Phone Deandre Bojorquez MD Unavailable [phone] Jeff Strickland MD Primary Care Provider [phone] Encounter Details Date Type Department Care Team (Late st Contact Info) Description 02/07/[address] [facility] MAIN LAB [address] [place] [address] Alan Davenport MD [facility] OF [place] [address] Social History Tobacco Use Types Packs/Day Years [...] Appointment [facility] MRI [address] [place] [address] Thomas Mendoza MD [address] [facility] 2L [place] [address] 08/04/2024 1:30 PM CDT Office Visit [facility] - Urology [address] [place] [address] Thomas Mendoza MD 12[address] [facility] 2L [place] [address] documented as of this encounter Procedures Procedure Name Priority Date/Time Associated Diagnosis Comments HOLD HLA SPECIMEN Routine 2023 7:5 8 AM SLIP FEEDER documented in this encounter Results * HOLD HLA SPECIMEN (2023 7:58 AM SLIP FEEDER) Hold HLA Specimen 02/07/2023 9:01 AM SLIP FEEDER [facility] ([facility]) Comment:The Hold HLA specime n has been received into the lab and will be held for 5 years at 4 degrees. Blood BLOOD SPECIMEN / Unknown 2023 7:58 AM SLIP FEEDER 02/07/2023 7:59 AM SLIP FEEDER Alan Davenport MD LAB - BLOOD BANK ORD ERABLES [facility] ([facility]) [address] documented in this encounter Visit Diagnoses Not on filedocumented in this encounter Care Teams Title One Kindergarten Teacher Relationship Specialty Start Date End Date Jeff Strickland MD [address] [place] [address] PCP - General 03/05/18 [place] [address] [facility] [address] [place] [address] Orthopedic Surgery 03/28/17 documented as of this encounter
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
--- OUTSIDE RECORDS SUMMARY | 2024-04-03 02:39 | XMS_ITS | Encounter Summary ---
Author Organization [facility] Address [facility] [place] [address] Care Team Providers Care Assistant Speech Language Pathologist Name Role Phone Deandre Bojorquez MD Unavailable [phone] Jeff Strickland MD Primary Care Provider [phone] Encounter Details Date Type Department Care Team (Late st Contact Info) Description 11/21/2023 Lab Requisition [facility] MAIN LAB [address] [place] [phone] Alan Davenport MD [facility] OF [place] [address] Social History Tobacco Use Types Packs/Day Years [...] Info) Description 08/04/2024 11:30 AM CDT Appointment [facility] MRI [address] [place] [address] Thomas Mendoza MD [address] 2L [place] [address] 08/04/2024 1:30 PM CDT Office Visit [facility] Physician [facility] - Urology [address] [place] [address] Thomas Mendoza MD [address] 2[address] [place] [address] documented as of this encounter Procedures Procedure Name Priority Date/Time Associated Diagnosis Comments HOLD HLA SPECIMEN Routine 11/18/2023 12: 16 PM CDT documented in this encounter Results * HOLD HLA SPECIMEN (11/18/2023 12:16 PM CDT) Hold HLA Specimen 11/21/2023 1:31 PM CDT [facility] ([facility]) Comment:The Hold HLA specime n has been received into the lab and will be held for 5 years at 4 degrees. Blood BLOOD SPECIMEN / Unknown 11/18/2023 12:16 PM CDT 11/21/2023 12:17 PM CDT Alan Davenport MD LAB - BLOOD BANK ORD ERABLES [facility] [address] [place] [address], [facility] documented in this encounter Visit Diagnoses Not on filedocumented in this encounter Care Teams Assistant Speech Language Pathologist Relationship Specialty Start Date End Date Jeff Strickland MD [address] [place] [address] PCP - General 03/05/18 [place] [address] [address] Orthopedic Surgery 03/28/17 documented as of this encounter
--- OUTSIDE RECORDS SUMMARY | 2024-04-03 02:39 | XMS_ITS | Encounter Summary ---
Author Organization [facility] Address [facility] [place] [address] Care Team Providers Care Rn Plasma Center Name Role Phone Deandre Bojorquez MD Unavailable [phone] Jeff Strickland MD Primary Care Provider [phone] Encounter Details Date Type Department Care Team (Late st Contact Info) Description 03/30/2024 Lab Requisition [facility] MAIN LAB [address] [place] [id number] Alan Davenport MD [facility] [place] [place] [place] [address] Social History Tobacco Use Types Packs/Day Years [...] Info) Description 08/04/2024 11:30 AM CDT Appointment [facility] MRI [address] [place] [address] Thomas Mendoza MD [address] [facility] 2L [place] [phone] 08/04/2024 1:30 PM CDT Office Visit [facility] - Urology [address] [place] [address] Thomas Mendoza MD [address] [facility] 2L [place] [phone] documented as of this encounter Procedures Procedure Name Priority Date/Time Associated Diagnosis Comments HOLD HLA SPECIMEN Routine 03/25/2024 2:5 1 PM SURETY BOND AGENT documented in this encounter Results * HOLD HLA SPECIMEN (03/25/2024 2:51 PM SURETY BOND AGENT) Hold HLA Specimen 03/30/2024 4:01 PM SURETY BOND AGENT [facility] ([facility]) Comment:The Hold HLA specime n has been received into the lab and will be held for 5 years at 4 degrees. Blood BLOOD SPECIMEN / Unknown 03/25/2024 2:51 PM SURETY BOND AGENT 03/30/2024 2:51 PM SURETY BOND AGENT Alan Davenport MD LAB - BLOOD BANK ORD ERABLES [facility] ([facility]) [address] documented in this encounter Visit Diagnoses Not on filedocumented in this encounter Care Teams Rn Plasma Center Relationship Specialty Start Date End Date Jeff Strickladn MD [address] [place] [address] PCP - General 03/05/18 [place] [address] [facility] [address] [place] [address] Orthopedic Surgery 03/28/17 documented as of this encounter
--- OUTSIDE RECORDS SUMMARY | 2024-04-03 02:39 | XMS_ITS | Continuity of Care Document ---
Author Organization [facility] Address [address] [facility] [address] [place] [address] Phone Care Team Providers Care Journey Lineman Name Role Phone Olu Payan Unavailable Unavailable [...] Diagnoses Date Provider Providers Copied on Encounter [facility], [place], [place], [id number], tel:[phone] [place] No Information [address] Gladis Olu. [address] [place] [address], [address], [place], [place], [facility], . tel: [phone] [address] [place] [address], [place], [place], [id number], tel:[phone] [place] No Information 4 Genoveva Mcdonald. . Referring Provider: Jeff Strickland [address] [place] [address] [address], [place], [place], [facility]. tel:[phone] [place] [address], [place], [place], [id number], tel:[phone] [place] No Information 4 Gladis Olu. [address] [place] [address], [address], [place], [place], [facility], . tel: [phone] Referring Provider: Yanira Chin [facility] [address], [place], [facility]. tel:[phone] [place] [address], [place], [place], [id number], tel:[phone] [place] No Information 4 Gladis Raines. [address] [place] [address], [address], [place], [place], [facility], . tel: [phone] Referring Provider: Yanira Chin [facility] [address], [place], [address]. tel:[phone], [id number], tel:[phone] [place] No Information 4 Jacinto Fairchild. . Referring Provider: Yanira Chin [facility] [address], [place], [address]. tel:[phone], [place], [place], [id number], [place] tel:[phone] [place] No Information 4 Jacinto Fairchild. . Referring Provider: Jeff Strickland [address] [place] [address] [address], [place], [facility]. tel:[phone], [id number], tel:[phone] [place] No Information 4 Genoveva Mcdonald. . Referring Provider: Jeff Strickland [address] [place] [address] [address], [place], [facility]. tel:[phone], [id number], tel:[phone] [place] No Information 4 Gladis Raines. [address] [facility], [address], [place], [facility], . tel: [phone] Referring Provider: Jeff Strickland [address] [place] [address] [address], [place], [facility]. tel:[phone], [id number], tel:[phone] [place] No Information 0 4 Genoveva Mcdonald. . Referring Provider: Jeff Strickland [address] [place] [address] [address], [place], [facility]. tel:[phone], [place], [id number], [place] tel:[phone] [place] No Information 0 4 Gladis Raines. [address] [facility], [address], [place], [place], [facility], . tel: [phone] Referring Provider: Jeff Strickland [address] [place] [address] [address], [place], [place], [facility]. tel:[phone] Family History Family Member Type Diagnosis Age At Onset No Information Payers Payer name Insurance type Covered democrat ID Diego suarez(ernesto Hadley [id number] Social History Type Description Quantity Date Captured [...]
--- OUTSIDE RECORDS SUMMARY | 2024-04-03 02:39 | XMS_ITS | Patient Health Record ---
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) Active confirmed Problem Chronic pain syndrome (G89.4) Active confirmed Chronic joan n syndrome (637159679) Problem Primary osteoarthritis, 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) Active confirmed Localized, primary osteoarthritis of the shoulder region (695171127) Problem Pain in left hip (M25.552) Active confirmed Pain of left hi p joint (finding) (282628070544223) Problem Spondylosis without myelopathy or radiculopathy, lumbar region (M47.816) Active confirmed Lumbosacral spondylosis without myelopathy (68680760) Problem Other intervertebral disc degeneration, lumbar region (M51.36) Active confirmed Degeneration of lumbar intervertebral disc (85699478) Problem Radiculopathy, lumbar region (M54.16) Active confirmed Lumbar radiculopathy (417310298) Problem Radiculopathy, lumbosacral region (M54.17) Active confirmed Lumbosacral radiculopathy (4381754) Problem Osseous stenosis of neural canal of lumbar region (M99.33) Active confirmed Spinal stenosis of lumbar region (65630921) Problem tank terminal gauger (current) use of anticoagulants (Z79.01) Active confirmed Long-term curre nt use of anticoagulant (717296422) Problem Other intervertebral disc degeneration, lumbar region [...] Date Provider Diagnosis [facility] [address] [place] [address] 05/08/2023 Sergio Stynowick Radiculopathy, lumba r region M54.16 ; Other intervertebral disc degeneration, lumbar region M51.36 ; 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 ; Spondylosis without myelopathy or radiculopathy, lumbar region M47.816 and tank terminal gauger (current) use of anticoagulants Z79.01 [facility] [address] [place] [address] 09/29/2023 Sergio Stynowick Radiculopathy, lumba r region M54.16 ; Other chest pain R07.89 ; Other intervertebral disc degeneration, lumbar region M51.36 ; 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 ; Spondylosis without myelopathy or radiculopathy, lumbar region M47.816 and tank terminal gauger (current) use of anticoagulants Z79.01 [facility] [address] [place] [address] 01/12/2024 Sergio Stynowick Radiculopathy, lumba r region M54.16 ; Radiculopathy, lumbosacral region M54.17 ; Other chest pain R07.89 ; Other intervertebral disc degeneration, lumbar region M51.36 ; 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 ; Spondylosis without myelopathy or radiculopathy, lumbar region M47.816 and assisted (current) use of anticoagulants Z79.01 [facility] [address] [place] [phone] 01/19/2024 Sergio Stynowick Radiculopathy, lumba r region M54.16 ; Other intervertebral disc degeneration, lumbar region with discogenic back pain and lower extremity pain M51.362 and 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 [facility] [address] [place] [phone] 02/03/2024 Sergio Stynowick Other chest pain R07.89 ; Pain in left knee M25.562 ; Radiculopathy, lumbar region M54.16 ; Other intervertebral disc degeneration, lumbar region M51.36 ; 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 ; Spondylosis without myelopathy or radiculopathy, lumbar region M47.816 and assisted (current) use of anticoagulants Z79.01 [facility] [address] [place] [phone] 03/03/2024 Sergio Stynowick Pain in left knee M25.562 ; Primary osteoarthritis, unspecified shoulder M19.019 ; Other chest pain R07.89 ; Radiculopathy, lumbar region M54.16 ; Other intervertebral disc degeneration, lumbar region M51.36 ; 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 ; Spondylosis without myelopathy or radiculopathy, lumbar region M47.816 ; assisted (current) use of anticoagulants Z79.01 ; Pain in right shoulder M25.511 and Pain in left shoulder M25.512 [facility] [address] [place] [phone] 03/08/2024 Sergio Stynowick Primary osteoarthritis, unspecified shoulder M19.019 [facility] [address] [place] [phone] 03/31/2024 Sergio Stynowick ASSESSMENTS Encounter Date Diagnosis [...] of lumbar region (ICD-10 - M99.33) 05/08/2023 assisted (current) use of anticoagulants (ICD-10 - Z79.01) 09/29/2023 Spondylosis without myelopathy or radiculopathy, lumbar region (ICD-10 - M47.816) 09/29/2023 assisted (current) use of anticoagulants (ICD-10 - Z79.01) 01/12/2024 Spondylosis without myelopathy or radiculopathy, lumbar region (ICD-10 - M47.816) 02/03/2024 Spondylosis without myelopathy or radiculopathy, lumbar region (ICD-10 - M47.816) 03/03/2024 Osseous stenosis of neural canal of lumbar region (ICD-10 - M99.33) 01/12/2024 assisted (current) use of anticoagulants (ICD-10 - Z79.01) The patient was instructed to discontinue aspirin for 6 days prior to the procedure. I made the patient aware that he will be at an increased risk for a thromboembolic event during this time and he is willing to accept this risk. The patient was instructed to notify his primary care physician and/or assembling motor builder to obtain clearance prior to discontinuing this medication. 02/03/2024 assisted (current) use of anticoagulants (ICD-10 - Z79.01) 03/03/2024 Spondylosis without myelopathy or radiculopathy, lumbar region (ICD-10 - M47.816) 03/03/2024 tank terminal gauger (current) use of anticoagulants (ICD-10 - Z79.01) [...] patient was evaluated in conjunction with Dr. Rviera. I have discussed and reviewed all of [...] Coverage End Date [employer] [address] [place] [address] [id number] LAISHA, GRACE Self - patient is the insured MEDICAL (GENERAL) HISTORY Medical History History ICD Code Hypertension Hypothyroidism Diabetes type 2 Gastroesophageal reflux disease (GERD) Renal cell cancer Chronic kidney disease stage 4 Sleep apnea CHF Surgical History Surgery Date(Month/Year) Right total knee arthroplasty 08/2015 Cholecystectomy Hernia repair 2019 Cardiac stent 07/2020
--- OUTSIDE RECORDS SUMMARY | 2024-04-03 02:39 | XMS_ITS ---
Author Organization [facility] Address [address] [facility] [place] [address] Care Team Providers Care Utility Pipe Layer Name Role Phone DONNIE WOOD MD Primary Care Provider Unavaila Sergio Trujillo Unavailable [phone] Encounters Encounter Location Date Provider Diagnosis [facility] [address] [facility] [place] [address] [place] [address] 03/31/2024 Sergio Rivera PLAN OF TREATMENT No Information
--- OUTSIDE RECORDS SUMMARY | 2024-04-03 02:39 | XMS_ITS ---
Author Organization [facility] Address [address] [facility] [place] [address] Care Team Providers Care Ultrasound Tester Name Role Phone Deandre Bojorquez MD Unavailable [phone] Jeff Strickland MD Primary Care Provider [phone] Transplant Episode Kidney Candidate [facility] ([place], [place]) - [facility] Center waitlisted on 05/06/2022 Marked as Inactive on 12/19/2022 Reason: Temporarily too Sick Kidney CoordinatorSavanna Edwards RN Phone: N/A Fax: N/A Email: N/A Scores Score Value Updated Exceptions/Reas ons CPRA Not available EPTS (Calc) 95 04/03/2024 [place] Organ Diagnosis Organ Primary Contributory Kidney Diabetes Mellitus - Type II Hype rtensive Nephrosclerosis Care Team Name Role Phone Fax Email Savanna Edwards RN Kidney Coordinator N/A N/A N/A Alan Mccall MD Referring Physician N/A N/A N/A Anjali Mott LMSW Bagging Salvager N/A N/A N/A Millie Lindquist Cleaner Industrial N/A N/A N/A Events Pre-Transplant Referred: 12/05/2021 Evaluation began: 12/13/2021 Committee: 05/02/2022 UNOS qualified: 01/17/2020 Center waitlisted: 05/06/2022 Dialysis History Dialysis History Start End Type Comments Center 01/17/2020 Peritoneal [facility] Information Center Phone Fax Address [facility] [phone] [address] [place] [address]
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
--- OUTSIDE RECORDS SUMMARY | 2024-04-03 02:39 | XMS_ITS | Patient Health Summary ---
Author Organization [facility] Address [address] [place] [address] Care Team Providers Care Emergency Care Attendant Name Role Phone Deandre Bojorquez MD Unavailable [phone] Jeff Strickland MD Primary Care Provider [phone] Note from [facility],non-owned Affiliates and Associated Physician Practices is amultiple site organization consisting of ambulatory clinics and hospital sitesin [place], [place], [place] and [place]. This disclosure is being madepursuant to the Care Everywhere program and may not contain all information available regarding this patient. 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 08/04/2020 Pre-transplant evaluation for kidney transplant 11/10/2019 Presence of right artificial knee joint 03/28/19 18 Immunizations * CovRingMD primary monovalent 12+ yr 0.3mL Purple cap(Given [...] Comments Blood Pressure 134/74 03/03/2024 12:47 PM LINUX SYSTEM ADMINISTRATOR Pulse 65 03/03/2024 12:47 PM LINUX SYSTEM ADMINISTRATOR Temperature 36.2 C (97.2 F) 08/06/2023 1:56 PM CDT Respiratory Rate 18 01/14/2022 1:01 PM LINUX SYSTEM ADMINISTRATOR Oxygen Saturation 96% 03/03/2024 12:47 PM LINUX SYSTEM ADMINISTRATOR Inhaled Oxygen Concentration - - Weight 119.7 kg (264 lb) 03/03/2024 12:47 PM LINUX SYSTEM ADMINISTRATOR Height 172.7 cm (5' 8 ) 03/03/2024 12:47 PM LINUX SYSTEM ADMINISTRATOR Body Mass Index 40.14 03/03/2024 12:47 PM LINUX SYSTEM ADMINISTRATOR Medical Devices Implanted Type Area Travel Accommodation Inspector Device Identifier Shelf Expiration Date Model / Serial / Lot Sys Cor Stent Xience Srr 3mm 18mm Rap Ex Implanted:Qty: 1 on 08/04/2020 by Javier Lan MD at [facility] Stent Coronary [employer] 06/19/2022 [id number] Description:STENT Sys Cor Stent Xience Srr 3mm 8mm Rap Ex Implanted:Qty: 1 on 08/04/2020 by Javier Lan MD at [facility] Stent [employer] 09/03/2021 [id number] Description:stent Procedures * HOLD HLA SPECIMEN(Performed 03/25/2024) [...] unspecified vessel or lesion type, unspecified whether absentee-shawnee or transplanted heart (HCC), Congestive heart failure, unspecified HF chronicity, unspecified heart failure type (HCC), Type 2 diabetes mellitus with chronic kidney disease on chronic dialysis, without long-term current use of insulin (HCC), Hypertension, unspecified type * STRESS TEST(Performed 11/06/2022) Performed for Pre-kidney transplant, listed, Coronary artery disease with angina pectoris, unspecified vessel or lesion type, unspecified whether absentee-shawnee or transplanted heart (HCC), Congestive heart failure, unspecified HF chronicity, unspecified heart failure type (HCC), Type 2 diabetes mellitus with chronic kidney disease on chronic dialysis, without long-term current use of insulin (HCC), Hypertension, unspecified type * ECHO COMPLETE(Performed 11/06/2022) Performed for Pre-kidney transplant, listed, Coronary artery disease with angina pectoris, unspecified vessel or lesion type, unspecified whether absentee-shawnee or transplanted heart (HCC), Congestive heart failure, [...] 11/07/2021) Performed for Coronary artery disease involving absentee-shawnee coronary artery of absentee-shawnee heart without angina pectoris * IR CENTRAL [...] 08/04/2020) Performed for Coronary artery disease involving absentee-shawnee coronary artery of absentee-shawnee heart with angina pectoris (HCC), Pre-transplant evaluation [...] 06/15/2020) Performed for Coronary artery disease involving absentee-shawnee coronary artery of absentee-shawnee heart without angina pectoris * LIPID PROFILE(Performed 06/15/2020) Performed for Coronary artery disease involving absentee-shawnee coronary artery of absentee-shawnee heart without angina pectoris * CT KIDNEYS [...] * HOLD HLA SPECIMEN (03/25/2024 2:51 PM LINUX SYSTEM ADMINISTRATOR) Only the most recent of10 resultswithin the time period is included. Hold HLA Specimen 03/30/2024 4:01 PM LINUX SYSTEM ADMINISTRATOR [facility]) Comment:The Hold HLA specime n has been received into the lab and will be held for 5 years at 4 degrees. Blood BLOOD SPECIMEN / Unknown 03/25/2024 2:51 PM LINUX SYSTEM ADMINISTRATOR 03/30/2024 2:51 PM LINUX SYSTEM ADMINISTRATOR Alan Davenport MD LAB - BLOOD BANK ORD ERABLES [facility]) [address] [place] [address] * EKG 12-LEAD (10/14/2023 11:24 AM CDT) Ventricular Rate 53 BPM [facility] Atrial Rate 53 BPM [facility] P-R Interval 170 ms [facility] QRS Duration ms 96 ms [facility] Q-T Interval ms 534 ms [facility] QTC Calculation (Bezet) 501 ms [facility] Calculated P Ringling 20 degrees [facility] Calculated R Ringling -50 degrees [facility] Calculated T Ringling -32 degrees [facility] Interpretation EKG SINUS BRADYCARDIA INCOMPLETE RIGHT BUNDLE BRANCH BLOCK LEFT ANTERIOR FASCICULAR BLOCK SEPTAL INFARCT , AGE UNDETERMINED PROLONGED QT ABNORMAL ECG NO PREVIOUS ECGS AVAILABLE Confirmed by SHANELL CAICEDO MD ([id number]) on 10/16/2023 10:56:56 AM [facility] 10/14/2023 11:2 4 AM CDT 10/16/2023 10:56 AM CDT Letha Christine DIE SINKER APPRENTICE-FLAVIA ECG ORDERABLES Performing Organization Address City/[facility]/ZIP Co de Phone Number PATIENCE MUSE * [...] - 1.20 mg/dL 07/17/2023 10:59 AM CDT [facility] eGFR 16(L) >=90 mL/min/1.7 3 m2 07/17/2023 10:59 AM CDT [facility] Blood BLOOD SPECIMEN / Unknown 07/17/2023 10:44 AM CDT 07/17/2023 10:59 AM CDT Martinez Sandhu MD LAB - POINT OF CARE ORDERABLES [facility] [address] [place] [address] * US RETROPERITONEAL COMPLETE (05/21/2023 12:05 PM [...] Report dictated by Romel Hendricks MD, (radiology supervisor). > Dictated by Romel Hendricks MD (Industrial Education Teacher) 05/21/2023 11:22 AM I, Lizandro Diaz MD have personally reviewed and interpreted this examination/study. > Interpreting Provider: Lizandro Diaz MD on 05/21/2023 12:34 PM Narrative 05/21/2023 12:34 PM CDT PROCEDURE: US RETROPERITONEAL COMPLETE, DATE/TIME OF EXAM: 05/21/2023 12:05 PM, LOCATION [facility] INDICATION: Z76.82: Pre-kidney transplant, listed [...] COMPLETE, DATE/TIME OF EXAM: 2:05 PM, LOCATION [facility] INDICATION: Z76.82: Pre-kidney transplant, listed [...] Report dictated by Romel Hendricks MD, (radiology supervisor). > Dictated by Romel Hendricks MD (Industrial Education Teacher) 05/21/2023 11:22 AM I, Lizandro Diaz [...] above. > Dictated by Neeraj Johnson MD (Industrial Education Teacher) 11/06/2022 12:04 PM I, Ariel Araya [...] unspecified vessel or lesion type, unspecified whether absentee-shawnee or transplanted heart ([facility]/HCC) I50.9: Congestive heart failure, unspecified HF chronicity, [...] pectoris, unspecifiedvessel or lesion type, unspecified whether absentee-shawnee or transplanted heart([facility]) I50.9: Congestive heart failure, unspecified HF chronicity, unspecified heart failure type ([facility]) E11.22: Type 2 diabetes mellitus with chronic [...] above. > Dictated by Neeraj Johnson MD (Industrial Education Teacher) 11/06/2022 12:04PM I, Ariel Araya MD have personally reviewed and interpreted this examination/study. > Interpreting Provider: Ariel Araya MD on 11/06/2022 4:[address] MD [place] ORDERABLES * STRESS TEST (11/06/2022 11:27 AM CDT) BSA 2.34 m2 [facility] Predicted METS 7.4 METS [facility] Target HR 131 bpm [facility] Max Age Predicted HR 154 bpm [facility] Baseline HR 56 bpm [facility] Stress peak HR 71 bpm [facility] Max HR Percent 46 % [facility] Baseline BP 153/70 mmHg [facility] Post peak BP 153/70 mmHg [facility] Target HR Percent 54 % [facility] Anatomical Region Laterality Modality Cardiac [...] per [place] tech, pt c/o dyspnea, VSS 65759- Test complete, VSS, symptoms resolved. IV dc'd. [...] * ECHO COMPLETE (11/06/2022 9:51 AM CDT) [facility] Signature BSA 2.3791552 m2 [facility] CV FUJ I PACS LV [...] Index 66 ml/m2 [facility] FUJI PACS [id number] 7.967 cm [facility] CV FUJ I PACS [id number] 8.115 cm [facility] CV FUJ I PACS [...] % PRA 0 11/13/2022 11:59 AM CDT [facility] ([facility]) Class 2 LUM SAB Moderate Risk DQB1*06:01, 06:03 11/13/2022 11:59 AM CDT [facility] ([facility]) Class 2 SAB Test Date [id number] 11/13/2022 11:59 AM CDT [facility] ([facility]) Comment: This test was developed and its performance characteristics determined by the [facility]. It has not been cleared [...] high complexity clinical laboratory testing. CLIA ID# [id number] Performed at: [facility], [address] [place] [id number] Teaching Fellow:Dr. Juno Ledesma, PhD, Blood BLOOD SPECIMEN / Unknown No Charge Blood Draw / Unknown 10/28/2022 2:38 PM CDT 11/07/2022 2:38 PM CDT Alan Davenport MD LAB - BLOOD BANK ORD ERABLES [facility] ([facility]) [address] [place] [id number] [place] [address] * HLA ANTIBODY SCREEN LUM CLASS 1 SAB (10/28/2022 2:38 PM CDT) Only the most recent of6 resultswithin the time period is included. % PRA 0 11/13/2022 11:59 AM CDT [facility] ([facility]) Class 1 SAB Test Date [id number] 11/13/2022 11:59 AM CDT [facility] ([facility]) Comment: This test was developed and its performance characteristics determined by the [facility]. It has not been cleared [...] high complexity clinical laboratory testing. CLIA ID# [id number] Performed at: [facility], [address] [place] [id number] Teaching Fellow:Dr. Juno Ledesma, PhD, Blood BLOOD SPECIMEN / Unknown No Charge Blood Draw / Unknown 10/28/2022 2:38 PM CDT 11/07/2022 2:38 PM CDT Alan Davenport MD LAB - BLOOD BANK ORD ERABLES [facility] ([facility]) [address] [place] [address] * OXALATE BLOOD (03/04/2022 11:04 AM LINUX SYSTEM ADMINISTRATOR) Oxalate <2.0 <=2.0 umol/L 03/09/2022 6:49 PM LINUX SYSTEM ADMINISTRATOR [employer] ([facility]) Comment: INTERPRETIVE INFORMATION: Oxalate, Plasma This test was developed and its performance characteristics determined by [email or web address]. It has not been cleared or approved by the US Food and Drug Administration. This test was performed in a CLIA certified laboratory and is intended for clinical purposes. Performed By: [facility] [address] [place] [id number] [employer] Pastor: Mk Egan MD, PhD Blood BLOOD SPECIMEN / Unknown Lab Venipuncture / Unknown 03/04/2022 11:04 AM LINUX SYSTEM ADMINISTRATOR 03/04/2022 11:08 AM LINUX SYSTEM ADMINISTRATOR Scott Lane MD LAB - CHEMISTR Y ORDERABLES ON LICENSE OF [facility]) [address] [place] [address], [facility] * MRI ABDOMEN WWO CONTRAST (03/04/2022 10:47 AM LINUX SYSTEM ADMINISTRATOR) Anatomical Region Laterality Modality Abdomen Magnetic Resonan ce 03/04/2022 11:0 9 AM LINUX SYSTEM ADMINISTRATOR Impressions 03/04/2022 1:36 PM LINUX SYSTEM ADMINISTRATOR Impression: 1.Focally decreased signal on opposed-phase images [...] Report dictated by Ashkan Almeida MD (radiology supervisor). I, Watson Phillips MD have personally reviewed and interpreted this examination/study. > Interpreting Provider: Watson Phillips MD on 03/04/2022 1:36 PM Narrative 03/04/2022 1:36 PM LINUX SYSTEM ADMINISTRATOR PROCEDURE: MRI ABDOMEN WWO CONTRAST, DATE/TIME OF EXAM: 03/04/2022 10:47 AM, LOCATION [facility] INDICATION: Z01.818: Pre-transplant evaluation for [...] CONTRAST, DATE/TIME OF EXAM: 0:47 AM, LOCATION [facility] INDICATION: Z01.818: Pre-transplant evaluation for [...] Report dictated by Ashkan Almeida MD (radiology supervisor). I, Watson Phillips MD have personally reviewed and interpreted this examination/study. > Interpreting Provider: Watson Phillips MD on 03/04/2022 1:[address] MD MR ORDERABLES * CT CHEST WO CONTRAST (03/04/2022 10:43 AM LINUX SYSTEM ADMINISTRATOR) Only the most recent of2 resultswithin the time period is included. Anatomical Region Laterality Modality Chest Computed Tomogra phy 03/04/2022 11:1 0 AM LINUX SYSTEM ADMINISTRATOR Impressions 03/04/2022 12:25 PM LINUX SYSTEM ADMINISTRATOR Impression: 1.Unchanged left lower lobe pulmonary nodules. [...] > Dictated by Luis Muñoz DO (radiology supervisor). I, Wilfrid Fonseca have personally reviewed and interpreted this examination/study. > Interpreting Provider: Wilfrid Fonseca on 03/04/2022 12:25 PM Narrative 03/04/2022 12:25 PM LINUX SYSTEM ADMINISTRATOR PROCEDURE: CT CHEST WO CONTRAST, DATE/TIME OF EXAM: 03/04/2022 10:43 AM, LOCATION [facility] INDICATION: Z01.818: Pre-transplant evaluation for [...] CONTRAST, DATE/TIME OF EXAM: 03/04/2022 10:43AM, LOCATION [facility] INDICATION: Z01.818: Pre-transplant evaluation for [...] > Dictated by Luis Muñoz DO (radiology supervisor). Wilfrid Leigh have personally reviewed and interpreted this examination/study. > Interpreting Provider: Wilfrid Fonseca on 03/04/2022 12:[address] ORDERABLES * XR CHEST PA AND LATERAL (01/14/2022 10:12 AM LINUX SYSTEM ADMINISTRATOR) Only the most recent of2 resultswithin the time period is included. Anatomical Region Laterality Modality Chest Radiographic Pastora ging 01/14/2022 10:2 3 AM LINUX SYSTEM ADMINISTRATOR Narrative 01/14/2022 2:50 PM LINUX SYSTEM ADMINISTRATOR PROCEDURE: XR CHEST 2VW, DATE/TIME OF EXAM: 01/14/2022 10:12 AM, LOCATION [facility] INDICATION: Z01.818: Pre-transplant evaluation for [...] Report dictated by Ruddy Trivedi MD (radiology supervisor). Terry Leigh MD have personally reviewed and interpreted this examination/study. > Interpreting Provider: Terry De Leon MD on 01/14/2022 2:50 PM Procedure Note Tosha De Leon MD - 01/14/2022 PROCEDURE: XR CHEST 2VW, DATE/TIME OF EXAM: 01/14/2022 10:12 AM,LOCATION [facility] INDICATION: Z01.818: Pre-transplant evaluation for [...] Report dictated by Ruddy Trivedi MD (radiology supervisor). ITerry MD have personally reviewed and interpreted this examination/study. > Interpreting Provider: Terry De Leon MD on 01/14/2022 2:50 PM Marbin Flores MD DIAGNOSTIC IMAGING O RDERABLES * (ABNORMAL) URINALYSIS COMPLETE W MICROSCOPIC (01/14/2022 9:59 AM LINUX SYSTEM ADMINISTRATOR) Only the most recent of2 resultswithin the time period is included. Color UA Straw Straw, Yellow 01/14/2022 11:31 AM [facility] Clarity UA Clear Clear 01/14/2022 11:31 AM [facility] Specific [place] UA 1.025 1.005 - 1.030 01/14/2022 11:31 AM [facility] pH UA 7.0 5.0 - 8.0 pH 01/14/2022 11:31 AM [facility] Protein UA 3+(A) Negative 01/14/2022 11:31 AM [facility] Glucose UA Trace(A) Negative 01/14/2022 11:31 AM [facility] Ketone UA Negative Negative 01/14/2022 11:31 AM [facility] Bilirubin UA Negative Negative 01/14/2022 11:31 AM [facility] Blood UA 1+(A) Negative 01/14/2022 11:31 AM [facility] Nitrite UA Negative Negative 01/14/2022 11:31 AM [facility] Leukocyte Esterase Negative Negative 01/14/2022 11:31 AM [facility] Urobilinogen UA Negative Negative mg/dL 01/14/2022 11:31 AM [facility] RBC UA 6-10(A) None Seen, 0-2, 3-5 /HPF 01/14/2022 11:31 AM [facility] WBC UA 0-5 None Seen, 0-5 /HPF 01/14/2022 11:31 AM [facility] Bacteria UA Trace(A) None /HPF 01/14/2022 11:31 AM [facility] Squamous Epithelial Cells UA 0-2 None Seen, 0-2, 3-5 /HPF 01/14/2022 11:31 AM [facility] Mucus UA 1+ /LPF 01/14/2022 11:31 AM [facility] Hyaline Casts UA 0-2 None Seen, 0-2 /LPF 01/14/2022 11:31 AM [facility] Urine URINE SPECIMEN OBTAINED BY CLEAN CATCH PROCEDURE / Unknown Collection / Unknown 01/14/2022 9:59 AM LINUX SYSTEM ADMINISTRATOR 01/14/2022 10:47 AM LINUX SYSTEM ADMINISTRATOR Narrative [facility] - 01/14/2022 11:31 AM LINUX SYSTEM ADMINISTRATOR Marbin Flores MD LAB - URINALYSIS ORD ERABLES Performing Organization Address City/[facility]/ZIP Co de Phone Number [address] [address], [place] [phone] * PROTEIN URINE RANDOM QUANTITATIVE (01/14/2022 9:59 AM LINUX SYSTEM ADMINISTRATOR) Only the most recent of2 resultswithin the time period is included. Protein Urine 365 Not Established mg/dL 01/14/2022 11:47 AM [facility] Comment:Result obtained by seema christianson. Urine URINE SPECIMEN OBTAINED BY CLEAN CATCH PROCEDURE / Unknown Collection / Unknown 01/14/2022 9:59 AM LINUX SYSTEM ADMINISTRATOR 01/14/2022 10:47 AM LINUX SYSTEM ADMINISTRATOR Marbin Flores MD LAB - URINE CHEMISTR Y ORDERABLES Performing Organization Address City/[facility]/ZIP Co de Phone Number [address] [address], [place] [phone] * CREATININE URINE RANDOM (01/14/2022 9:59 AM LINUX SYSTEM ADMINISTRATOR) Only the most recent of2 resultswithin the time period is included. Creatinine Urine 81 Not Established mg/dL 01/14/2022 11:20 AM LINUX SYSTEM ADMINISTRATOR [facility] Urine URINE SPECIMEN OBTAINED BY CLEAN CATCH PROCEDURE / Unknown Collection / Unknown 01/14/2022 9:59 AM LINUX SYSTEM ADMINISTRATOR 01/14/2022 10:47 AM LINUX SYSTEM ADMINISTRATOR Marbin Flores MD LAB - URINE CHEMISTR Y ORDERABLES Performing Organization Address City/[facility]/ZIP Co de Phone Number [address] [address], [facility] [phone] * CANNABINOID SCREEN BLOOD (01/14/2022 9:54 AM LINUX SYSTEM ADMINISTRATOR) Only the most recent of2 resultswithin the time period is included. Marijuana Metabolites Negative 01/19/2022 8:07 PM LINUX SYSTEM ADMINISTRATOR [facility] ([facility]) Comment:REFERENCE RANGE: thr shold: 5 ng/mL Specimen Type Comment 01/19/2022 8:07 PM LINUX SYSTEM ADMINISTRATOR [facility] ([facility]) Comment: WHOLE BLOOD This specimen was [...] Lab Venipuncture / Unknown 01/14/2022 9:54 AM LINUX SYSTEM ADMINISTRATOR 01/14/2022 10:49 AM LINUX SYSTEM ADMINISTRATOR Narrative [facility] ([facility]) - 01/19/2022 8:07 PM LINUX SYSTEM ADMINISTRATOR Performed at: 01 - [facility] [address] [place] [address] [id number] Teaching Fellow: Ev Camarena [facility], Phone: [phone] Marbin Flores MD LAB - CHEMISTRY ORDE RABLES [facility] ([facility]) [address] [place], [place] [id number] * COCAINE METABOLITE QUANT (01/14/2022 9:54 AM LINUX SYSTEM ADMINISTRATOR) Only the most recent of2 resultswithin the time period is included. Pathologist [facility] Cocaine and Metabolite Blood <20 ng/mL 01/18/2022 12:32 AM LINUX SYSTEM ADMINISTRATOR ON LICENSE OF [facility] ([facility]) Comment: INTERPRETIVE INFORMATION: Cocaine Metabolite, Serum [...] developed and its performance characteristics determined by [employer]. It has not been cleared or approved by the US Food and Drug Administration. This test was performed in a CLIA certified laboratory and is intended for clinical purposes. Performed By: [facility] [employer] [address] [place] [address] [employer] Pastor: Mk Egan MD, PhD Blood BLOOD SPECIMEN / Unknown Lab Venipuncture / Unknown 01/14/2022 9:54 AM LINUX SYSTEM ADMINISTRATOR 01/14/2022 10:48 AM LINUX SYSTEM ADMINISTRATOR Marbin Flores MD LAB - CHEMISTRY PK ZENG [facility] Organization Address City/State/ZIP Co de Phone Number [facility] [employer] ([facility]) [address] [place] [address] * SYPHILIS ANTIBODY CASCADING REFLEX (01/14/2022 9:54 AM LINUX SYSTEM ADMINISTRATOR) Only the most recent of2 resultswithin the time period is included. Pathologist [facility] Treponema pallidum Antibody Non-react sylvie Non-react sylvie 01/14/2022 11:52 AM LINUX SYSTEM ADMINISTRATOR [facility] Comment: No Laboratory evidence of syphilis infection. Note: Circulating antibodies may be low or undetectable in early infection. If recent exposure is suspected, re-draw sample in 2-4 weeks and repeat testing. Blood BLOOD SPECIMEN / Unknown Lab Venipuncture / Unknown 01/14/2022 9:54 AM LINUX SYSTEM ADMINISTRATOR 01/14/2022 10:48 AM LINUX SYSTEM ADMINISTRATOR Marbin Flores MD LAB - SEROLOGY ORDER MICHELLE [facility] [address] [place] [address], [facility] [phone] * AMPHETAMINE BLOOD CONFIRMATION (01/14/2022 9:54 AM LINUX SYSTEM ADMINISTRATOR) Only the most recent of2 resultswithin the time period is included. Amphetamines Confirmation <20 ng/mL 2022 12:55 AM LINUX SYSTEM ADMINISTRATOR [employer] ([facility]) Comment: INTERPRETIVE INFORMATION: Amphetamines, Serum or Plasma, [...] developed and its performance characteristics determined by [employer]. It has not been cleared or approved by the US Food and Drug Administration. This test was performed in a CLIA certified laboratory and is intended for clinical purposes. Methamphetamine Confirmation <20 ng/mL 2022 12:55 AM [facility] [employer] [facility]) MDA Confirmation <20 ng/mL 01/21/20 22 12:55 AM [facility] [employer] [facility]) MDMA Confirm <20 ng/mL 2022 12:55 AM LINUX SYSTEM ADMINISTRATOR [facility]) MDEA Confirmation <20 ng/mL 022 12:55 AM LINUX SYSTEM ADMINISTRATOR [employer] [facility]) Comment: Performed By: [facility] [address] [place] [id number] [employer]: Mk Egan MD, PhD Blood BLOOD SPECIMEN / Unknown Lab Venipuncture / Unknown 01/14/2022 9:54 AM LINUX SYSTEM ADMINISTRATOR 01/14/2022 10:48 AM LINUX SYSTEM ADMINISTRATOR Marbin Flores MD LAB - [facility]MISTRY [facility]) [address] [place] [address], [facility] * QUANTIFERON-TB GOLD PLUS 4-TUBE (01/14/2022 9:54 AM LINUX SYSTEM ADMINISTRATOR) Only the most recent of2 resultswithin the time period is included. QuantiFERON NIL 0.02 IU/mL 1:41 AM LINUX SYSTEM ADMINISTRATOR [facility]) Comment: Performed By: [facility] [address] [place] [address] [employer]ational [employer] Pastor: Mk Egan MD, PhD QuantiFERON TB Gold Plus Negative Negative 01/17/2022 1:41 AM LINUX SYSTEM ADMINISTRATOR [facility] ([facility]) Comment: Interpretive Data: Quantiferon TB Gold Plus [...] Mycobacterium tuberculosis Infection --- [place], 2010 (http://www.cdc.gov/mmwr/preview/mmwrhtml/zy5722o0.htm), for more information concerning test performance in low-prevalence populations and use in occupational screening. QuantiFERON Plus TB1 Minus NIL 0.00 0.00 - 0.34 IU/mL 01/17/2022 1:41 AM LINUX SYSTEM ADMINISTRATOR [employer] ([facility]) QuantiFERON Plus TB2 Minus NIL 0.01 0.00 - 0.34 IU/mL 01/17/2022 1:41 AM LINUX SYSTEM ADMINISTRATOR [employer] ([facility]) QuantiFERON Mitogen Minus NIL >10.00 IU/mL 01/17/2022 1:41 AM LINUX SYSTEM ADMINISTRATOR ON LICENSE OF [facility] ([facility]) Blood BLOOD SPECIMEN / Unknown Lab Venipuncture / Unknown 01/14/2022 9:54 AM LINUX SYSTEM ADMINISTRATOR 01/14/2022 10:49 AM LINUX SYSTEM ADMINISTRATOR Marbin Flores MD LAB - CHEMISTRY PK ZENG [facility]) [address] * (ABNORMAL) PTH INTACT ([facility]) (01/14/2022 9:54 AM LINUX SYSTEM ADMINISTRATOR) Only the most recent of2 resultswithin the time period is included. Pathologist [facility] PTH Intact 266.9(H) 8.0 - 77.0 pg/mL 01/14/2022 11:37 AM LINUX SYSTEM ADMINISTRATOR [facility] Blood BLOOD SPECIMEN / Unknown Lab Venipuncture / Unknown 01/14/2022 9:54 AM LINUX SYSTEM ADMINISTRATOR 01/14/2022 11:00 AM LINUX SYSTEM ADMINISTRATOR Marbin Flores MD LAB - CHEMISTRY PK ZENG Performing Organization Address [facility]/ZIP Co de Phone Number [address] [address], [facility] [phone] * HIV-1 HIV-2 ANTIBODY + HIV P24 AG PANEL (01/14/2022 9:54 AM LINUX SYSTEM ADMINISTRATOR) Pathologist [facility] HIV Antigen/Antibod y 1 & 2 Non-reacti ve Non-react syvlie 01/14/2022 11:52 AM LINUX SYSTEM ADMINISTRATOR [facility] Comment:No Laboratory eviden ce of HIV infection. Blood BLOOD SPECIMEN / Unknown Lab Venipuncture / Unknown 01/14/2022 9:54 AM LINUX SYSTEM ADMINISTRATOR 01/14/2022 10:48 AM LINUX SYSTEM ADMINISTRATOR Marbin Flores MD LAB - CHEMISTRY PK ZENG Performing Organization Address City/[facility]/ZIP Co de Phone Number [address] [address] [phone] * OPIATES BLOOD (01/14/2022 9:54 AM LINUX SYSTEM ADMINISTRATOR) Only the most recent of2 resultswithin the time period is included. Pathologist [facility] Opiates Screen Negative 01/19/2022 8:07 PM [facility] ([facility]) Comment:REFERENCE RANGE: thr shold: 10 ng/mL Oxycodone Screen Negative 01/20/20 8:07 PM LINUX SYSTEM ADMINISTRATOR [facility] ([facility]) Comment:REFERENCE RANGE: thr shold: 10 ng/mL Specimen Type Comment 01/19/2022 8:07 PM LINUX SYSTEM ADMINISTRATOR [facility] ([facility]) Comment: WHOLE BLOOD This specimen was [...] Lab Venipuncture / Unknown 01/14/2022 9:54 AM LINUX SYSTEM ADMINISTRATOR 01/14/2022 10:49 AM LINUX SYSTEM ADMINISTRATOR Narrative [facility] ([facility]) - 01/19/2022 8:07 PM LINUX SYSTEM ADMINISTRATOR Performed at: [facility] [employer] [address] [id number] Teaching Fellow: Ev Camarena [facility], Phone: [phone] Marbin Flores MD LAB - CHEMISTRY PK ZENG [facility] Organization Address City/State/ZIP Co de Phone Number [facility]) [address] [place] [address] * URIC ACID BLOOD (01/14/2022 9:54 AM LINUX SYSTEM ADMINISTRATOR) Only the most recent of2 resultswithin the time period is included. [facility] Uric Acid 7.0 3.5 - 7.2 mg/dL 01/14/2022 11:38 AM LINUX SYSTEM ADMINISTRATOR [facility] Blood BLOOD SPECIMEN / Unknown Lab Venipuncture / Unknown 01/14/2022 9:54 AM LINUX SYSTEM ADMINISTRATOR 01/14/2022 11:00 AM LINUX SYSTEM ADMINISTRATOR Marbin Flores MD LAB - CHEMISTRY ORDE AZUCENA Performing Organization Address [facility] Co de Phone Number [place] [phone], [facility] [phone] * STRONGYLOIDES ANTIBODY IGG (01/14/2022 9:54 AM LINUX SYSTEM ADMINISTRATOR) Only the most recent of2 resultswithin the time period is included. Strongyloides Antibody IgG 0.1 <=0.9 IV 01/16/2022 1:02 AM LINUX SYSTEM ADMINISTRATOR [employer] ([facility]) Comment: INTERPRETIVE INFORMATION: Strongyloides Ab, IgG [...] also result in false-positive results. Performed By: [email or web address] [address] [place] [address] [employer] Pastor: Mk Egan MD, PhD Blood BLOOD SPECIMEN / Unknown Lab Venipuncture / Unknown 01/14/2022 9:54 AM LINUX SYSTEM ADMINISTRATOR 01/14/2022 10:48 AM LINUX SYSTEM ADMINISTRATOR Marbin Flores MD LAB - SEROLOGY ORDER MICHELLE [facility] ([facility]) [address] * CYTOMEGALOVIRUS ANTIBODY IGG BLOOD (01/14/2022 9:54 AM LINUX SYSTEM ADMINISTRATOR) Only the most recent of2 resultswithin the time period is included. Cytomegalovirus Antibody IgG <0.20 U/mL 01/15/2022 4:12 PM LINUX SYSTEM ADMINISTRATOR [employer] ([facility]) Comment: INTERPRETIVE INFORMATION: Cytomegalovirus Antibody, IgG 0.59 [...] laboratory at the same time. Performed By: [email or web address] [address] [place] [address] Congregational Care Pastor: Mk Egan MD, PhD Blood BLOOD SPECIMEN / Unknown Lab Venipuncture / Unknown 01/14/2022 9:54 AM LINUX SYSTEM ADMINISTRATOR 01/14/2022 10:48 AM LINUX SYSTEM ADMINISTRATOR Marbin Flores MD LAB - CHEMISTRY PK ZENG Performing Organization Address City/[facility]/ZIP Co de Phone Number ON LICENSE OF [facility] ([facility]) [address] [place] [address], [facility] * TRANSFERRIN (01/14/2022 9:54 AM LINUX SYSTEM ADMINISTRATOR) Only the most recent of2 resultswithin the time period is included. Transferrin 176 174 - 382 mg/dL 01/14/2022 11:36 AM LINUX SYSTEM ADMINISTRATOR [facility] Blood BLOOD SPECIMEN / Unknown Lab Venipuncture / Unknown 01/14/2022 9:54 AM LINUX SYSTEM ADMINISTRATOR 01/14/2022 10:48 AM LINUX SYSTEM ADMINISTRATOR Marbin Flores MD LAB - CHEMISTRY PK ZENG [address] [address] [phone] * TOXOPLASMA GONDII ANTIBODY IGG (01/14/2022 9:54 AM LINUX SYSTEM ADMINISTRATOR) Only the most recent of2 resultswithin the time period is included. Toxoplasma Antibody IgG <3.0 IU/mL 01/15/2022 4:23 PM LINUX SYSTEM ADMINISTRATOR ON LICENSE OF [facility] ([facility]) Comment: INTERPRETIVE INFORMATION: Toxoplasma Ab, IgG 7.1 [...] the amount of antibody present. Performed By: [email or web address] [address] [place] [address] Congregational Care Pastor: Mk Egan MD, PhD Blood BLOOD SPECIMEN / Unknown Lab Venipuncture / Unknown 01/14/2022 9:54 AM LINUX SYSTEM ADMINISTRATOR 01/14/2022 10:48 AM LINUX SYSTEM ADMINISTRATOR Marbin Flores MD LAB - CHEMISTRY PK ZENG [facility] Organization Address City/State/[facility] Co de Phone Number [facility] [employer] [facility]) [address] * (ABNORMAL) HEMOGLOBIN A1C (01/14/2022 9:54 AM LINUX SYSTEM ADMINISTRATOR) Only the most recent of2 resultswithin the time period is included. Hemoglobin A1c 8.7(H) <=5.6 % 01/14/2022 1:10 PM LINUX SYSTEM ADMINISTRATOR [facility] Estimated Average Glucose 203 mg/dL 01/14/2022 1:10 PM LINUX SYSTEM ADMINISTRATOR [facility] Comment: HbA1c Interpretation: Normal : < 5.7% Pre-diabetes: 5.7-6.4% Diabetes: Equal to or greater than 6.5% Test results diagnostic of diabetes should be repeated for confirmation. Treatment target values recommended by ADA and other clinical organizations should be used to evaluate metabolic control in patients. Reference: [place] [employer], Standards of Care in Diabetes -2020 In patients 70 years and older consider HbA1c target range of 7.0-7.5% (Reference: [employer] et al. GREGORYDA. 2012) The Sebia assay for the measurement of HbA1c is a National Glycohemoglobin Standardization Program (NGSP) certified method. Blood BLOOD SPECIMEN / Unknown Lab Venipuncture / Unknown 01/14/2022 9:54 AM LINUX SYSTEM ADMINISTRATOR 01/14/2022 11:00 AM LINUX SYSTEM ADMINISTRATOR Marbin Flores MD LAB - CHEMISTRY PK ZENG Performing Organization Address City/[facility]/ZIP Co de Phone Number [address] [address], [facility] [phone] * VITAMIN D 25-HYDROXY (01/14/2022 9:54 AM LINUX SYSTEM ADMINISTRATOR) Only the most recent of2 resultswithin the time period is included. Pathologist [facility] Vitamin D, 25 Hydroxy 39.0 30.0 - 80.0 ng/mL 01/14/2022 11:47 AM LINUX SYSTEM ADMINISTRATOR [facility] Comment: The recommendations for 25-Hydroxy [...] Lab Venipuncture / Unknown 01/14/2022 9:54 AM LINUX SYSTEM ADMINISTRATOR 01/14/2022 11:00 AM LINUX SYSTEM ADMINISTRATOR Marbin Flores MD LAB - CHEMISTRY PK ZENG [address] [address] [phone] * NICOTINE + METABOLITES BLOOD (01/14/2022 9:54 AM LINUX SYSTEM ADMINISTRATOR) Only the most recent of2 resultswithin the time period is included. [facility] Signature Nicotine <5 ng/mL 01/17/2022 2:23 PM LINUX SYSTEM ADMINISTRATOR [facility] ([facility]) Comment: Consistent with abstinence from nicotine-containing [...] developed and its performance characteristics determined by [email or web address]. It has not been cleared or approved by the US Food and Drug Administration. This test was performed in a CLIA certified laboratory and is intended for clinical purposes. Performed By: [email or web address] [address] [place] [address] Congregational Care Pastor: Mk Egan MD, PhD Cotinine <5 ng/mL 01/17/2022 2:23 PM LINUX SYSTEM ADMINISTRATOR [facility]) Blood BLOOD SPECIMEN / Unknown Lab Venipuncture / Unknown 01/14/2022 9:54 AM LINUX SYSTEM ADMINISTRATOR 01/14/2022 10:48 AM LINUX SYSTEM ADMINISTRATOR Marbin Flores MD LAB - CHEMISTRY PK ZENG [facility] [employer] [facility]) [address] * (ABNORMAL) CBC W AUTO DIFFERENTIAL (01/14/2022 9:54 AM LINUX SYSTEM ADMINISTRATOR) Only the most recent of4 resultswithin the time period is included. WBC 7.4 3.5 - 10.5 10 3/uL 01/14/2022 11:33 AM [facility] RBC 3.19(L) 4.30 - 5.70 10 6/uL 01/14/2022 11:33 AM [facility] Hemoglobin 9.7(L) 12.0 - 17.6 g/dL 01/14/2022 11:33 AM [facility] Hematocrit 28.9(L) 35.2 - 51.7 % 01/14/2022 11:33 AM [facility] MCV 90.6 80.7 - 98.3 fL 01/14/2022 11:33 AM [facility] MCH 30.4 26.7 - 34.0 pg 01/14/2022 11:33 AM [facility] MCHC 33.6 30.8 - 35.9 g/dL 01/14/2022 11:33 AM [facility] RDW-SD 47.2 36.0 - 50.0 fL 01/14/2022 11:33 AM [facility] RDW-CV 14.2 11.2 - 14.8 % 01/14/2022 11:33 AM [facility] Platelet Count 148(L) 150 - 400 10 3/uL 01/14/2022 11:33 AM [facility] MPV 11.7 9.4 - 12.9 fL 01/14/2022 11:33 AM [facility] nRBC Absolute 0.00 0 10 3/uL 01/14/2022 11:33 AM [facility] nRBC Auto 0.0 0 /100 WBC 01/14/2022 11:33 AM [facility] Neutrophils % 75.4(H) 35.0 - 70.0 % 01/14/2022 11:33 AM [facility] Lymphocytes % 11.6(L) 20.0 - 43.0 % 01/14/2022 11:33 AM [facility] Monocytes % 10.6 5.0 - 13.0 % 01/14/2022 11:33 AM [facility] Eosinophils % 0.1 0.0 - 6.0 % 01/14/2022 11:33 AM [facility] Basophil % 0.1 0.0 - 2.0 % 01/14/2022 11:33 AM [facility] Neutrophils Absolute 5.61 1.60 - 7.00 10 3/uL 01/14/2022 11:33 AM [facility] Lymphocyte Absolute 0.86(L) 1.10 - 3.90 10 3/uL 01/14/2022 11:33 AM [facility] Monocytes Absolute 0.79 0.26 - 1.07 10 3/uL 01/14/2022 11:33 AM [facility] Eosinophils Absolute 0.01 0.00 - 0.47 10 3/uL 01/14/2022 11:33 AM [facility] Basophils Absolute 0.01 0.00 - 0.08 10 3/uL 01/14/2022 11:33 AM [facility] Immature Granulocytes % 2.2(H) 0.0 - 1.0 % 01/14/2022 11:33 AM [facility] Immature Granulocytes Absolute 0.16 01/14/2022 11:33 AM [facility] Blood BLOOD SPECIMEN / Unknown Lab Venipuncture / Unknown 01/14/2022 9:54 AM LINUX SYSTEM ADMINISTRATOR 01/14/2022 11:00 AM [facility] Marbin Flores MD LAB - HEMATOLOGY ORD ERABLES [facility] [address] [place] [phone], [facility] [phone] * (ABNORMAL) COMPREHENSIVE METABOLIC PANEL (01/14/2022 9:54 AM [facility]) Only the most recent of2 resultswithin the time period is included. BUN 27(H) 7 - 26 mg/dL 01/14/2022 11:38 AM [facility] Creatinine 5.60(H) 0.71 - 1.16 mg/dL 01/14/2022 11:38 AM [facility] Sodium 142 136 - 145 mmol/L 01/14/2022 11:38 AM [facility] Potassium 3.6 3.5 - 4.5 mmol/L 01/14/2022 11:38 AM [facility] Chloride 100 98 - 107 mmol/L 01/14/2022 11:38 AM [facility] CO2 24 22 - 29 mmol/L 01/14/2022 11:38 AM [facility] Glucose 217(H) 70 - 115 mg/dL 01/14/2022 11:38 AM [facility] Calcium 8.3(L) 8.4 - 10.2 mg/dL 01/14/2022 11:38 AM [facility] Protein Total 6.8 6.0 - 8.3 g/dL 01/14/2022 11:38 AM [facility] Albumin 3.1(L) 3.4 - 5.0 g/dL 01/14/2022 11:38 AM [facility] Bilirubin Total 0.6 0.2 - 1.2 mg/dL 01/14/2022 11:38 AM [facility] Alkaline Phosphatase 98 40 - 150 U/L 01/14/2022 11:38 AM [facility] ALT 19 5 - 55 U/L 01/14/2022 11:38 AM [facility] AST 17 5 - 34 U/L 01/14/2022 11:38 AM [facility] Anion Gap 22(H) 8 - 18 01/14/2022 11:38 AM [facility] BUN/Creatinine Ratio 5(L) 7 - 23 01/14/2022 11:38 AM [facility] Osmolality Calculated 306(H) 270 - 300 mOsm/kg 01/14/2022 11:38 AM [facility] Albumin/Globulin Ratio 0.8(L) 1.1 - 2.3 01/14/2022 11:38 AM [facility] eGFR by CKD-EPI 11(L) >=90 mL/min/1.7 3 m2 01/14/2022 11:38 AM [facility] Blood BLOOD SPECIMEN / Unknown Lab Venipuncture / Unknown 01/14/2022 9:54 AM LINUX SYSTEM ADMINISTRATOR 01/14/2022 11:00 AM [facility] Marbin Flores MD LAB - CHEMISTRY PK ZENG [facility] Organization Address City/State/ZIP Co de Phone Number [address] [address], [facility] [phone] * PROSTATE SPECIFIC ANTIGEN SCREEN (01/14/2022 9:54 AM LINUX SYSTEM ADMINISTRATOR) Only the most recent of2 resultswithin the time period is included. PSA Total 3.3 0.0 - 4.0 ng/mL 01/14/2022 11:54 AM LINUX SYSTEM ADMINISTRATOR [facility] Blood BLOOD SPECIMEN / Unknown Lab Venipuncture / Unknown 01/14/2022 9:54 AM LINUX SYSTEM ADMINISTRATOR 01/14/2022 11:00 AM LINUX SYSTEM ADMINISTRATOR Marbin Flores MD LAB - CHEMISTRY PK ZENG [address] [address], [facility] [phone] * (ABNORMAL) PHOSPHORUS BLOOD (01/14/2022 9:54 AM LINUX SYSTEM ADMINISTRATOR) Only the most recent of2 resultswithin the time period is included. Phosphorus 5.4(H) 2.8 - 5.1 mg/dL 01/14/2022 11:38 AM LINUX SYSTEM ADMINISTRATOR [facility] Blood BLOOD SPECIMEN / Unknown Lab Venipuncture / Unknown 01/14/2022 9:54 AM LINUX SYSTEM ADMINISTRATOR 01/14/2022 11:00 AM LINUX SYSTEM ADMINISTRATOR Marbin Flores MD LAB - CHEMISTRY PK ZENG [address] [address], [facility] [phone] * IRON BLOOD (01/14/2022 9:54 AM LINUX SYSTEM ADMINISTRATOR) Only the most recent of2 resultswithin the time period is included. Iron 62 50 - 175 ug/dL 01/14/2022 11:36 AM LINUX SYSTEM ADMINISTRATOR [facility] Blood BLOOD SPECIMEN / Unknown Lab Venipuncture / Unknown 01/14/2022 9:54 AM LINUX SYSTEM ADMINISTRATOR 01/14/2022 10:48 AM LINUX SYSTEM ADMINISTRATOR Marbin Flores MD LAB - CHEMISTRY ORDLien ALEJOADELFO Performing Organization Address City/[facility]/ZIP Co de Phone Number [address] [address], [facility] [phone] * LDL CHOLESTEROL DIRECT (01/14/2022 9:54 AM LINUX SYSTEM ADMINISTRATOR) Only the most recent of3 resultswithin the time period is included. LDL Direct 46 <100 mg/dL 01/14/2022 11:57 AM [facility] Comment: ATP III Classification of LDL Cholesterol: <100 mg/dL: Optimal 100 - 129 mg/dL: Near Optimal/Above Optimal 130 - 159 mg/dL: Borderline High 160 - 189 mg/dL: High >190 mg/dL: Very High Blood BLOOD SPECIMEN / Unknown Lab Venipuncture / Unknown 01/14/2022 9:54 AM LINUX SYSTEM ADMINISTRATOR 01/14/2022 11:00 AM LINUX SYSTEM ADMINISTRATOR Marbin Flores MD LAB - CHEMISTRY PK ZENG Performing Organization Address City/[facility]/ZIP Co de Phone Number [address] [address], [facility] [phone] * HEPATITIS B SURFACE ANTIBODY (01/14/2022 9:54 AM LINUX SYSTEM ADMINISTRATOR) Only the most recent of2 resultswithin the time period is included. Hepatitis B Virus Surface Antibody Non-react sylvie Non-react sylvie 01/14/2022 11:52 AM [facility] Comment: < 8 mIU/mL Hepatitis B surface Antibody (HBsAb). Nonreactive for HBsAb - individual is considered not immune to Hepatitis B Virus infection. Hepatitis B Surface Antibody Quantitative 1.2 <8.0 mIU/mL 01/14/2022 11:52 AM [facility] Comment: Hepatitis B Surface Antibody Numeric Result Interpretation: Nonreactive: <8.0 mIU/mL Indeterminate: 8.0 - 12.0 mIU/mL Reactive: >12.0 mIU/mL Blood BLOOD SPECIMEN / Unknown Lab Venipuncture / Unknown 01/14/2022 9:54 AM LINUX SYSTEM ADMINISTRATOR 01/14/2022 10:48 AM LINUX SYSTEM ADMINISTRATOR Marbin Flores MD LAB - CHEMISTRY PK ZENG Performing Organization Address City/[facility]/ZIP Co de Phone Number [address] [address], [facility] [phone] * HEPATITIS B CORE ANTIBODY (01/14/2022 9:54 AM LINUX SYSTEM ADMINISTRATOR) Only the most recent of2 resultswithin the time period is included. Pathologist [facility] HBc Antibody Total Non-reacti ve Non-reacti ve 01/14/2022 11:52 AM LINUX SYSTEM ADMINISTRATOR [facility] Blood BLOOD SPECIMEN / Unknown Lab Venipuncture / Unknown 01/14/2022 9:54 AM LINUX SYSTEM ADMINISTRATOR 01/14/2022 10:48 AM LINUX SYSTEM ADMINISTRATOR Marbin Flores MD LAB - CHEMISTRY PK ZENG Performing Organization Address [facility] Co de Phone Number [address] [address], [place] [phone] * HEPATITIS B SURFACE ANTIGEN W RFLX CONFIRMATION (01/14/2022 9:54 AM LINUX SYSTEM ADMINISTRATOR) Only the most recent of2 resultswithin the time period is included. [facility] Hepatitis B Virus Surface Antigen Non-reacti ve Non-reacti ve 01/14/2022 11:52 AM LINUX SYSTEM ADMINISTRATOR [facility] Blood BLOOD SPECIMEN / Unknown Lab Venipuncture / Unknown 01/14/2022 9:54 AM LINUX SYSTEM ADMINISTRATOR 01/14/2022 10:48 AM LINUX SYSTEM ADMINISTRATOR Marbin Flores MD LAB - CHEMISTRY PK ZENG Performing Organization Address City/[facility]/ZIP Co de Phone Number [address] [address], [place] [phone] * ALCOHOL ETHYL BLOOD (01/14/2022 9:54 AM LINUX SYSTEM ADMINISTRATOR) Only the most recent of2 resultswithin the time period is included. [facility] Ethanol (mg/dL) <10 <=10 mg/dL 11/28/202 2 11:38 AM [facility] Ethanol Calculated (g/dL) <0.010 <0.010 g/dL 01/14/2022 11:38 AM [facility] Blood BLOOD SPECIMEN / Unknown Lab Venipuncture / Unknown 01/14/2022 9:54 AM LINUX SYSTEM ADMINISTRATOR 01/14/2022 11:00 AM LINUX SYSTEM ADMINISTRATOR Narrative [facility] - 01/14/2022 11:38 AM LINUX SYSTEM ADMINISTRATOR Ethanol Interp <10: None Detected. Depression of [employer] OPERATOR: >100 mg/dl Potentially Critical: >250 mg/dl [...] - CHEMISTRY PK ZENG Performing Organization Address City/[facility]/ZIP Co de Phone Number [address] [address], [place] [phone] * HEPATITIS C ANTIBODY (01/14/2022 9:54 AM LINUX SYSTEM ADMINISTRATOR) Only the most recent of2 resultswithin the time period is included. Hepatitis C Antibody Non-react sylvie Non-reac tive 01/14/2022 11:52 AM [facility] Comment:Hepatitis C Antibody screen indicates no serologic evidence of past or current infection with Hepatitis C Virus. Patients with unexplained liver disease who are immunocompromised or suspected of having acute Hepatitis C infection may benefit from Nucleic Acid Test (MARLON) for Hepatitis C Viral RNA to confirm Hepatitis C status. Blood BLOOD SPECIMEN / Unknown Lab Venipuncture / Unknown 01/14/2022 9:54 AM LINUX SYSTEM ADMINISTRATOR 01/14/2022 10:48 AM LINUX SYSTEM ADMINISTRATOR Marbin Flores MD LAB - CHEMISTRY PK ZENG Performing Organization Address City/[facility]/ZIP Co de Phone Number [address] [address], [facility] [phone] * HEPATITIS A ANTIBODY (01/14/2022 9:54 AM LINUX SYSTEM ADMINISTRATOR) Only the most recent of2 resultswithin the time period is included. Pathologist [facility] Hepatitis A Virus Antibody Total Negative Negative 01/15/2022 1:38 PM LINUX SYSTEM ADMINISTRATOR [facility] ([facility]) Comment: Performed by [email or web address], [address] [place] [id number] [email or web address], Mk Egan MD, PHD, Lab. Director Blood BLOOD SPECIMEN / Unknown Lab Venipuncture / Unknown 01/14/2022 9:54 AM LINUX SYSTEM ADMINISTRATOR 01/14/2022 10:48 AM LINUX SYSTEM ADMINISTRATOR Marbin Flores MD LAB - CHEMISTRY PK ZENG Performing Organization Address City/[facility]/ZIP Co de Phone Number [facility]) [address] [place] [address] * (ABNORMAL) FERRITIN (01/14/2022 9:54 AM LINUX SYSTEM ADMINISTRATOR) Only the most recent of2 resultswithin the time period is included. [facility] Ferritin 847(H) 22 - 275 ng/mL 01/14/2022 11:52 AM LINUX SYSTEM ADMINISTRATOR [facility] Blood BLOOD SPECIMEN / Unknown Lab Venipuncture / Unknown 01/14/2022 9:54 AM LINUX SYSTEM ADMINISTRATOR 01/14/2022 10:48 AM LINUX SYSTEM ADMINISTRATOR Marbin Flores MD LAB - CHEMISTRY PK ZENG [facility] [address] [place] [phone], [facility] [phone] * (ABNORMAL) LIPID PROFILE (01/14/2022 9:54 AM LINUX SYSTEM ADMINISTRATOR) Only the most recent of3 resultswithin the time period is included. [facility] Cholesterol Total 173 <200 mg/dL 01/14/2022 11:38 AM LINUX SYSTEM ADMINISTRATOR [facility] HDL 21(L) >40 mg/dL 01/14/2022 11:38 AM LINUX SYSTEM ADMINISTRATOR [facility] Comment: ATP III Classification of HDL Cholesterol: <40 mg/dL: Considered a major risk factor. >60 mg/dL: Considered a negative risk factor. LDL Calculated 01/14/2022 11:38 AM [facility] Comment:Calculation of LDL v alue was not performed because triglyceride concentrations greater than 400 mg/dL render the calculated value invalid. For this reason, the LDL Direct assay for measurement of LDL Cholesterol has been performed (per laboratory protocol). Triglycerides 706(H) <150 mg/dL 01/14/2022 11:38 AM [facility] Comment: ATP III Classification of Triglycerides: <150 mg/dL: Normal 150 - 199 mg/dL: Borderline High 200 - 400 mg/dL: High >500 mg/dL: Very High Blood BLOOD SPECIMEN / Unknown Lab Venipuncture / Unknown 01/14/2022 9:54 AM LINUX SYSTEM ADMINISTRATOR 01/14/2022 11:00 AM LINUX SYSTEM ADMINISTRATOR Marbin Flores MD LAB - CHEMISTRY PK ZENG [facility] Organization Address City/State/[facility] Co de Phone Number [address] [address], [facility] [phone] * ECHO COMPLETE (11/07/2021 11:30 AM CDT) [...] Alexey Sellers M.D. Vascular and Interventional Radiology [facility] [phone] CC: Patient's material checker: Dr. Alan Mccall Dialysis unit: [facility] Alan Mccall MD IR ORDERABLES * IR CENTRAL LINE INSERT TUNNEL (04/04/2021 10:31 AM LINUX SYSTEM ADMINISTRATOR) Only the most recent of2 resultswithin the time period is included. Anatomical Region Laterality Modality Chest, Upper Extremity X-Ray Ang iography Narrative 04/04/2021 10:20 AM LINUX SYSTEM ADMINISTRATOR Santiago Sellers MD 04/04/2021 10:21 AM VASCULAR [...] completed, removal can be scheduled by calling [facility] at [phone]. Alexey Sellers M.D. Vascular and Interventional Radiology [facility] [phone] CC: Patient's material checker: Dr. Alan Mccall Dialysis unit: [facility] Alan Mccall MD IR ORDERABLES * (ABNORMAL) RENAL FUNCTION PANEL (09/07/2020 12:00 PM CDT) Glucose 168(H) 70 - 105 mg/dL 09/07/2020 1:34 PM CDT [facility] Sodium 139 136 - 145 mmol/L 09/07/2020 1:34 PM CDT [facility] Potassium 3.5 3.5 - 5.1 mmol/L 09/07/2020 1:34 PM CD[address] [facility] Chloride 98 98 - 107 mmol/L 09/07/2020 1:34 PM CDT [facility] CO2 27 23 - 31 mmol/L 09/07/2020 1:34 PM CDT [facility] Calcium 8.1(L) 8.4 - 10.4 mg/dL 09/07/2020 1:34 PM CDT [facility] Anion Gap 14 8 - 18 mmol/L 09/07/2020 1:34 PM CDT [facility] BUN 32(H) 8.4 - 25.7 mg/dL 09/07/2020 1:34 PM CDT [facility] Creatinine 5.32(H) 0.72 - 1.25 mg/dL 09/07/2020 1:34 PM CDT [facility] Albumin 2.8(L) 3.2 - 4.6 gm/dL 09/07/2020 1:34 PM CDT [facility] Phosphorus 4.0 2.3 - 4.7 mg/dL 09/07/2020 1:34 PM CDT [facility] eGFR by MDRD 11(L) >60 mL/min/1.7 3m2 09/07/2020 1:34 PM CDT [facility] eGFR by MDRD 13(L) >60 mL/min/1.7 3m2 09/07/2020 1:34 PM CDT [facility] Blood BLOOD SPECIMEN / Unknown Lab Venipuncture / Unknown 09/07/2020 12:00 PM CDT 09/07/2020 1:05 PM CDT Alan Mccall MD LAB - CHEMISTRY PK ZENG [facility] Organization Address City/State/ZIP Co de Phone Number [facility] [address], [place] [id number] * [place] PERITONEUM (09/06/2020 10:07 AM CDT) Anatomical Region Laterality Modality Abdomen X-Ray Angiograph y Narrative 09/06/2020 11:46 AM Aki Treviño MD 09/06/2020 2:51 PM Kendall Carl [id number] Interventional Nephrology Procedure Date: 09/06/2020 Attending Surgeon [...] PLACEMENT: INJECTION OF AIR/CONTRAST OF PERITONEAL CAVITY; 99068; 28638 Findings: 1. Contrast injection through the catheter [...] laparoscopic. Aki Boles MD 09/06/2020 11:46 AM [facility] VAC 314 [phone] Christiano Perea MD [facility] Alan Mccall MD FLUOROSCOPY ORDERABL ES * CARDIAC PROCEDURE ORDER (08/07/2020 3:59 PM CDT) Narrative 08/07/2020 3:59 PM CDT Ordered by an unspecified provider. Scanned Document CARDIAC SERVICES ORD ERABLES * CCL CARDIAC CATH LEFT (08/04/2020 11:57 AM CDT) Anatomical Region Laterality Modality Chest X-Ray Angiograph y Narrative 08/16/2020 2:51 PM CDT [facility] Cardiac Catheterization Procedure Note Patient: Kendall Carl Age: [age] year old Date of : 1955 Procedure Date: 08/04/2020 FELLOW / GOLF CADDIE: Jade Russo MD ATTENDING PHYSICIAN: Javier Lan [...] evaluation, please review the evaluation forms in [facility]. For details on monitored clinical parameters during the intra-service sedation time, please review the procedure nurse documentation in [facility] and [facility]. Total sedation administered as follows: [...] Aggressive modification of atherosclerotic risk factors. Jade Zuelta MD 08/04/2020 I was present for the entirety of the described procedure. Javier Lan MD Eliza Phan MD CARDIAC OIL FIELD ROUSTABOUT RA DIANT * (ABNORMAL) GLUCOSE - POINT OF CARE (08/04/2020 9:23 AM CDT) Only the most recent of4 resultswithin the time period is included. [facility] Glucose WB/POC 403(H) 70 - 115 mg/dL 08/04/2020 9:27 AM CDT [facility] Specimen Type Venous 08/04/2020 9:27 AM CDT [facility] Blood BLOOD SPECIMEN / Unknown 08/04/2020 9:23 AM CDT 08/04/2020 9:27 AM CDT Eliza Phan MD LAB - POINT OF CARE ORDERABLES [facility] [address] [place] [address], [facility] [phone] * XR CHEST 1VW (08/02/2020 2:31 PM [...] by Harsh Mohamud M.D. (resident) Dr. LUIS eLigh have personally reviewed and interpreted this examination/study. This report was electronically signed by LUIS JAMES on 08/02/2020 2:32 PM . Thomas Mendoza MD DIAGNOSTIC IMAGING ORDERABLES * CT KIDNEY BIOPSY( 48862 and [address]75) (08/02/2020 1:16 PM CDT) Anatomical Region Laterality [...] CDT) Case Report Surgical Pathology Report Case: [id number] Authorizing Provider: Thomas Mendoza MD Collected: 08/02/2020 12:20 PM Ordering Location: [facility] IVR Received: 08/02/2020 01:42 PM Pathologist: Elinor Phillips MD Specimen: Kidney Mass, Biopsy 08/04/2020 3:00 PM [facility] Final Diagnosis Kidney, left, biopsy (A): - Oncocytic neoplasm, see comment 08/04/2020 3:00 PM [facility] Microscopic Description and Comment Immunostains show tumor cells are positive for CD117 and rare tumor cells are positive for CK7 and BerEP4. If this biopsy is medical billing representative of the entire lesion, it would be consistent with an oncocytoma. 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 Received in formalin, specimen A , are 4 purple-ho soft tissue cores 0.5-1.4 cm in length with diameters of 0.1 cm and a 0.9 x 0.1 x 0.1 cm portion of red-brown blood clot, submitted in toto in cassette A1. AH 08/04/2020 3:00 PM [facility] Disclaimer The performance characteristics of all immunohistochemical and indirect immunofluorescence stains (if any) cited in this report were determined by the Histopathology Laboratory of [facility]. Some of these tests were developed [...] the attending (teaching) pathologist. 08/04/2020 3:00 PM [facility] Embedded Images 08/04/2020 3:00 PM CDT [facility] Pathology/Cytolo gy MASS / Unknown Collection / Unknown 08/02/2020 12:20 PM CDT 08/02/2020 1:42 PM CDT Thomas Mendoza MD LAB - PATHOLOGY/CY TOLOGY ORDERABLES Performing Organization Address [facility]/State/ZIP Co de Phone Number [facility] [address] [id number] [phone] * PT-INR (07/28/2020 8:14 AM CDT) PT 12.8 12.1 - 14.8 sec 07/28/2020 8:41 AM CDT [facility] INR 1.0 0.9 - 1.1 07/28/2020 8:41 AM CDT [facility] Blood BLOOD SPECIMEN / Unknown Lab Venipuncture / Unknown 07/28/2020 8:14 AM CDT 07/28/2020 8:14 AM CDT Narrative [facility] - 07/28/2020 8:41 AM CDT Conventional Warfarin Anticoagulant Therapy: INR Reference Range: 2.0-3.0 Intensive Warfarin Anticoagulant Therapy: INR Reference Range: 2.5-3.5 Eliza Phan MD LAB - COAGULATION O RDERABLES [facility] [address] [place] [address] * (ABNORMAL) BASIC METABOLIC PANEL (CALCIUM TOTAL) (07/28/2020 8:14 AM CDT) Glucose 290(H) 70 - 105 mg/dL 07/28/2020 9:06 AM CDT [facility] Sodium 137 136 - 145 mmol/L 07/28/2020 9:06 AM CDT [facility] Potassium 4.2 3.5 - 5.1 mmol/L 07/28/2020 9:06 AM CDT [facility] Chloride 101 98 - 107 mmol/L 07/28/2020 9:06 AM CDT [facility] CO2 25 23 - 31 mmol/L 07/28/2020 9:06 AM CDT [facility] Calcium 8.8 8.4 - 10.4 mg/dL 07/28/2020 9:06 AM CDT [facility] Anion Gap 11 8 - 18 mmol/L 07/28/2020 9:06 AM CDT [facility] BUN 38(H) 8.4 - 25.7 mg/dL 07/28/2020 9:06 AM CDT [facility] Creatinine 5.77(H) 0.72 - 1.25 mg/dL 07/28/2020 9:06 AM CDT [facility] eGFR by MDRD 10(L) >60 mL/min/1.7 3m2 07/28/2020 9:06 AM CDT [facility] eGFR by MDRD 12(L) >60 mL/min/1.7 3m2 07/28/2020 9:06 AM CDT [facility] Blood BLOOD SPECIMEN / Unknown Lab Venipuncture / Unknown 07/28/2020 8:14 AM CDT 07/28/2020 8:14 AM CDT Eliza Phan MD LAB - CHEMISTRY ORD ERABLES [facility] [address] [place] [address] * CT KIDNEYS WWO CONTRAST [...] Report dictated by Donny Oneill DO (radiology supervisor) I, Dr. RODRICK JOSEPH have personally reviewed [...] Report dictated by Donny Oneill DO (radiology supervisor) I, Dr. RODRICK JOSEPH have personally reviewed and interpreted this examination/study. This report was electronically signed by RODRICK JOSEPH on 11:16 PM . Alan Davenport MD CT ORDERABLES * HEMOGLOBIN A1C - POINT OF CARE (AMB) [facility] (05/17/2020 1:19 PM CDT) Hemoglobin A1c POCT 11.1 BLOOD SPECIMEN / Unknown 05/17/2020 1:19 PM CDT Miya Juárez DIE SINKER APPRENTICE-PROCESS SAFETY ENGINEER LAB - POINT O F CARE [...] the fluoroscopy table in supine position. AP belt operator image was obtained. A Key catheter was [...] the fluoroscopy table in supine position. AP belt operator image was obtained. A Key catheter was [...] Rh O NEG 11/09/2019 12:07 PM CDT [facility] Blood BLOOD SPECIMEN / Unknown Lab Venipuncture / Unknown 11/09/2019 10:20 AM CDT 11/09/2019 11:20 AM CDT Alan Davenport MD LAB - BLOOD BANK ORD ERABLES [facility] [address] [place] [address], [facility] [phone] * HLA TYPING DNA LOW RESOLUTION DR,DQ (11/09/2019 10:13 AM CDT) DR DQ Low Resolution DRB1-1 03 (DR17) 12/09/2019 3:33 PM CDT [facility] ([facility]) DR DQ Low Resolution DRB1-2 11 12/09/2019 3:33 PM CDT [facility] ([facility]) DR DQ Low Resolution DQB1-1 02 12/09/2019 3:33 PM CDT [facility] ([facility]) DR DQ Low Resolution DQB1-2 03 (DQ7) 12/09/2019 3:33 PM CDT [facility] ([facility]) DR DQ Low Resolution DRB3-1 01 12/09/2019 3:33 PM CDT [facility] ([facility]) DR DQ Low Resolution DRB3-2 02 12/09/2019 3:33 PM CDT [facility] ([facility]) DR DQ Low Resolution DRB4-1 Negative 12/09/2019 3:33 PM CDT [facility] ([facility]) DR DQ Low Resolution DRB4-2 Negative 12/09/2019 3:33 PM CDT [facility] ([facility]) DR DQ Low Resolution DRB5-1 Negative 12/09/2019 3:33 PM CDT [facility] ([facility]) DR DQ Low Resolution DRB5-2 Negative 12/09/2019 3:33 PM CDT [facility] ([facility]) DR DQ Low Resolution Methodology SSOP 12/09/2019 3:33 PM CDT [facility] ([facility]) Comment DR DQ Low Resolution - 12/09/2019 3:33 PM CDT [facility] ([facility]) DR DQ Low Resolution test date 12/09/2019 12/09/2019 3:33 PM CDT [facility] ([facility]) Comment: This test was developed and its performance characteristics determined by the [facility]. It has not been cleared [...] high complexity clinical laboratory testing. CLIA ID# [id number] Performed at: [facility], [address] @ [place] [address] Teaching Fellow: Juan Diego Martin MD, Blood BLOOD SPECIMEN / Unknown Lab Venipuncture / Unknown 11/09/2019 10:13 AM CDT 11/10/2019 3:47 AM CDT Alan Davenport MD LAB - BLOOD BANK ORD ERABLES [facility] ([facility]) [address] [place] [address], [facility] * HLA TYPING DNA LOW RESOLUTION A,B,C (11/09/2019 10:13 AM CDT) ABC DNA A1 02 12/09/2019 3:34 PM CDT [facility] ([facility]) ABC DNA A2 03 12/09/2019 3:34 PM CDT [facility] ([facility]) ABC DNA B1 08 12/09/2019 3:34 PM CDT [facility] ([facility]) ABC DNA B2 44 12/09/2019 3:34 PM CDT [facility] ([facility]) ABC DNA BW1 6 12/09/2019 3:34 PM CDT [facility] ([facility]) ABC DNA BW2 4 12/09/2019 3:34 PM CDT [facility] ([facility]) ABC DNA C1 02 12/09/2019 3:34 PM CDT [facility] ([facility]) ABC DNA C2 07 12/09/2019 3:34 PM CDT [facility] ([facility]) ABC DNA Methodology SSOP 12/08 3:34 PM CDT [facility] ([facility]) Comment ABC DNA - 0 3:34 PM CDT [facility] ([facility]) ABC DNA Test Date 0 12/09/2019 3:34 PM CDT [facility] ([facility]) Comment: This test was developed and its performance characteristics determined by the [facility]. It has not been cleared [...] high complexity clinical laboratory testing. CLIA ID# [id number] Performed at: [facility], [address] @ [place] [address] Teaching Fellow: Juan Diego Martin MD, Blood BLOOD SPECIMEN / Unknown Lab Venipuncture / Unknown 11/09/2019 10:13 AM CDT 11/10/2019 3:47 AM CDT Alan Davenport MD LAB - BLOOD BANK ORD ERABLES [facility] ([facility]) [address] [place] [address], [place] * HLA ANTIBODY SCREEN LUM CLASS 2 ID (11/09/2019 10:13 AM CDT) % PRA 4 12/09/2019 3:33 PM CDT [facility] ([facility]) Class 2 LUM Specificity - 12/09/2019 3:33 PM CDT [facility] ([facility]) Class 2 LUM Test Date 0 12/09/2019 3:33 PM CDT [facility] ([facility]) Comment: This test was developed and its performance characteristics determined by the [facility]. It has not been cleared or approved [...] high complexity clinical laboratory testing. CLIA ID# [id number] Performed at: [facility], [address] @ [place] [address] Teaching Fellow: Juan Diego Martin MD, Blood BLOOD SPECIMEN / Unknown Lab Venipuncture / Unknown 11/09/2019 10:13 AM CDT 11/10/2019 3:40 AM CDT Alan Davenport MD LAB - BLOOD BANK ORD ERABLES [facility] ([facility]) [address] [place] [address], [facility] * HLA ANTIBODY SCREEN LUM CLASS 1 ID (11/09/2019 10:13 AM CDT) % PRA 0 12/09/2019 3:33 PM CDT [facility] ([facility]) Class 1 LUM Specificity - 12/09/2019 3:33 PM CDT [facility] ([facility]) Class 1 LUM Test Date 0 12/09/2019 3:33 PM CDT [facility] ([facility]) Comment: This test was developed and its performance characteristics determined by the [facility]. It has not been cleared or approved [...] high complexity clinical laboratory testing. CLIA ID# [id number] Performed at: [facility], [address] @ [place] [address] Teaching Fellow: Juan Diego Martin MD, Blood BLOOD SPECIMEN / Unknown Lab Venipuncture / Unknown 11/09/2019 10:13 AM CDT 11/10/2019 3:40 AM CDT Alan Davenpotr MD LAB - BLOOD BANK ORD ERABLES Performing Organization Address City/[facility]/ZIP Co de Phone Number [facility] [address] [place] [address], [place] * HIV-1 HIV-2 ANTIGEN/ANTIBODY (11/09/2019 10:13 AM CDT) Pathologist [facility] HIV Antigen/Antibod y 1 & 2 Non-reacti ve Non-react sylvie 11/09/2019 12:26 PM CDT [facility] Comment:Neither HIV-1 p24 An tigen nor HIV-1/HIV-2 Antibodies are detected. Blood BLOOD SPECIMEN / Unknown Lab Venipuncture / Unknown 11/09/2019 10:13 AM CDT 11/09/2019 11:10 AM CDT Alan Davenport MD LAB - HEMATOLOGY ORD ERABLES Performing Organization Address City/[facility]/ZIP Co de Phone Number [facility] [address] [place] [phone], [facility] [phone] * RUBELLA ANTIBODY IGG TITER (11/09/2019 10:13 AM CDT) Rubella Antibody IgG >330.0 IU/mL 11/11/2019 11:06 AM CDT [facility] ([facility]) Comment: INTERPRETIVE INFORMATION: Rubella Antibody, IgG Less [...] the amount of antibody present. Performed By: [email or web address] [address] [place] [address] Congregational Care Pastor: Kaur Blankenship MD Blood BLOOD SPECIMEN / Unknown Lab Venipuncture / Unknown 11/09/2019 10:13 AM CDT 11/09/2019 11:10 AM CDT Alan Davenport MD LAB - SEROLOGY ORDER MICHELLE [place] [facility]) [address] [place] [address], [facility] * RUBEOLA ANTIBODY IGG (11/09/2019 10:13 AM CDT) [facility] Measles (Rubeola) Antibody IgG >300.0 AU/mL 11/11/2019 12:20 PM CDT [facility] ([facility]) Comment: INTERPRETIVE INFORMATION: Measles (Rubeola) Antibody, [...] laboratory at the same time. Performed By: [email or web address] [address] [place] [address] Congregational Care Pastor: Kaur Blankenship MD Blood BLOOD SPECIMEN / Unknown Lab Venipuncture / Unknown 11/09/2019 10:13 AM CDT 11/09/2019 11:11 AM CDT Alan Davenport MD LAB - CHEMISTRY PK ZENG Performing Organization Address [facility]/[place]UST de Phone Number [facility]) [address] [place] [address] * MUMPS ANTIBODY IGG (11/09/2019 10:13 AM CDT) Mumps Virus Antibody IgG >300.0 AU/mL 11/11/2019 11:57 AM CDT [facility] ([facility]) Comment: INTERPRETIVE INFORMATION: Mumps Ab, IgG [...] laboratory at the same time. Performed By: [email or web address] [address] [place] [address] Congregational Care Pastor: Kaur Blankenship MD Blood BLOOD SPECIMEN / Unknown Lab Venipuncture / Unknown 11/09/2019 10:13 AM CDT 11/09/2019 11:10 AM CDT Alan Davenport MD LAB - CHEMISTRY PK ZENG Performing Organization Address [facility]/[place] de Phone Number [facility] ([facility]) [address] * VARICELLA ZOSTER ANTIBODY IGG (11/09/2019 10:13 AM CDT) Varicella zoster Virus Antibody IgG 1243.0 IV 11/11/2019 12:55 PM CDT [facility] ([facility]) Comment: INTERPRETIVE INFORMATION: VZV Ab, IgG [...] laboratory at the same time. Performed By: [email or web address] [address] [place] [address] Congregational Care Pastor: Kaur Blankenship MD Blood BLOOD SPECIMEN / Unknown Lab Venipuncture / Unknown 11/09/2019 10:13 AM CDT 11/09/2019 11:11 AM CDT Alan Davenport MD LAB - CHEMISTRY PK ZENG Performing Organization Address [facility]/ZIP Co de Phone Number [employer] [facility]) [address] [place] [address] * (ABNORMAL) CHARLENE-GAONA VIRUS ANTIBODY TO VCA IGG (11/09/2019 10:13 AM CDT) [facility] Charlene-Gaona Virus Antibody IgG Viral Capsid Antigen 277.0(H) 0.0 - 21.9 U/mL 11/11/2019 12:37 PM CDT [facility] ([facility]) Comment: INTERPRETIVE INFORMATION: Charlene-Gaona Virus Antibody to Viral Capsid Antigen, IgG 17.9 U/mL or less.......Not Detected 18.0-21.9 U/mL..........Indeterminate - Repeat testing in 10-14 days may be helpful. 22.0 U/mL or greater....Detected Performed By: [email or web address] [address] [place] [address] Congregational Care Pastor: Kaur Blankenship MD Blood BLOOD SPECIMEN / Unknown Lab Venipuncture / Unknown 11/09/2019 10:13 AM CDT 11/09/2019 11:12 AM CDT Alan Davenport MD LAB - CHEMISTRY PK ZENG Performing Organization Address [facility]/ZIP Co de Phone Number [facility] ([facility]) [address] [place] [address] * TYPE + SCREEN PANEL (11/09/2019 10:13 AM CDT) Antibody Screen NEG 0 12:07 PM CDT [facility] ABO Rh O NEG 11/09/2019 12:07 PM CDT [facility] Blood Bank BLOOD SPECIMEN / Unknown Lab Venipuncture / Unknown 11/09/2019 10:13 AM CDT 11/09/2019 11:20 AM CDT Alan Davenport MD LAB - BLOOD BANK ORD ERABLES [facility] [address] [place] [address], [facility] [phone] * CT ABDOMEN AND PELVIS NON IV [...] prostate. Dictated by Agusto Bradley MD (radiology supervisor). IDr. Terry M.D. have personally reviewed and [...] prostate. Dictated by Agusto Bradley MD (radiology supervisor). Dr. Terry Leigh M.D. have personally reviewed [...] abscess. Dictated by Felipe Younger MD (radiology supervisor). Dr. ADRIANA Leigh have personally reviewed and [...] abscess. Dictated by Felipe Younger MD (radiology supervisor). Dr. ADRIANA Leigh have personally reviewed and [...] RIGHT 3VW OR MORE (03/05/2018 10:25 AM LINUX SYSTEM ADMINISTRATOR) Anatomical Region Laterality Modality Wrist / Hand Radiographic Pastora ging 03/05/2018 11:3 0 AM LINUX SYSTEM ADMINISTRATOR Impressions 03/05/2018 12:17 PM LINUX SYSTEM ADMINISTRATOR IMPRESSION: 1. No acute bony abnormalities. No significant joint space narrowing. 2. Suggestion of mild diffuse soft tissue swelling of the third digit. Dictated by Lizandro Diaz MD (radiology supervisor). Dr. Terry Leigh M.D. have personally reviewed and interpreted this examination/study. This report was electronically signed by Terry DE LEON M.D. on 03/05/2018 12:17 PM . Narrative 03/05/2018 12:17 PM LINUX SYSTEM ADMINISTRATOR EXAMINATION: XR HAND RIGHT 3VW OR MORE [...] digit. Dictated by Lizandro Diaz MD (radiology supervisor). IDr. Terry M.D. have personally reviewed and interpretedthis examination/study. This report was electronically signed by Terry DE LEON M.D. on 03/05/2018 12:17 PM . Aracely Rock PA-C DIAGNOSTIC IMAG ING ORDERABLES * XR KNEE 3 VW RIGHT (03/28/2017 8:14 AM LINUX SYSTEM ADMINISTRATOR) Anatomical Region Laterality Modality Lower Extremity Computed Radiogr aphy Narrative 03/28/2017 1:03 PM LINUX SYSTEM ADMINISTRATOR Nadja Jenkins, RT(R) 03/28/2017 1:03 PM See progress notes for results Marilou Rodríguez PA-C DIAGNOSTIC IM AGING ORDERABLES Care Teams Emergency Care Attendant Relationship Specialty Start Date End Date Jeff Strickland MD [address] [place] [address] PCP - General 03/05/18 [place] [address] [address] Orthopedic Surgery 03/28/17
--- OUTSIDE RECORDS SUMMARY | 2024-04-03 02:39 | XMS_ITS | Encounter Summary ---
Author Organization [facility] Address [facility] [place] [address] Care Team Providers Care Reconciliation Analyst Name Role Phone Deandre Bojorquez MD Unavailable [phone] Jeff Strickland MD Primary Care Provider [phone] Encounter Details Date Type Department Care Team (Late st Contact Info) Description 04/10/2023 Lab Requisition [facility] MAIN LAB [address] [place] [address] Alan Davenport MD [facility] [place] [address] Social History Tobacco Use Types Packs/Day Years [...] CDT Appointment [facility] MRI [address] [place] [address] Thomas Mendoza MD [address] [facility] 2L [place] [address] 08/04/2024 1:30 PM CDT Office Visit [facility] - Urology [address] [place] [address] Thomas Mendoza MD [address] [facility] 2L [place] [address] documented as of this encounter Procedures Procedure Name Priority Date/Time Associated Diagnosis Comments HOLD HLA SPECIMEN Routine 04/02/2023 3:0 1 PM CRANE CREW SUPERVISOR documented in this encounter Results * HOLD HLA SPECIMEN (04/02/2023 3:01 PM CRANE CREW SUPERVISOR) Hold HLA Specimen 04/10/2023 4:01 PM CRANE CREW SUPERVISOR [facility] ([facility]) Comment:The Hold HLA specime n has been received into the lab and will be held for 5 years at 4 degrees. Blood BLOOD SPECIMEN / Unknown 04/02/2023 3:01 PM CRANE CREW SUPERVISOR 04/10/2023 3:01 PM CRANE CREW SUPERVISOR Alan Davenport MD LAB - BLOOD BANK ORD ERABLES [facility] ([facility]) [address] documented in this encounter Visit Diagnoses Not on filedocumented in this encounter Care Teams Reconciliation Analyst Relationship Specialty Start Date End Date Jeff Strickland MD [address] [place] [address] PCP - General 03/05/18 [place] [address] [facility] [address] [place] [address] Orthopedic Surgery 03/28/17 documented as of this encounter
--- OUTSIDE RECORDS SUMMARY | 2024-04-03 02:39 | XMS_ITS | Encounter Summary ---
Author Organization [facility] Address [facility] [place] [address] Care Team Providers Care Tangled Yarn Spool Straightener Name Role Phone Deandre Bojorquez MD Unavailable [phone] Jeff Strickland MD Primary Care Provider [phone] Encounter Details Date Type Department Care Team (Late st Contact Info) Description 10/28/2023 Lab Requisition [facility] MAIN LAB [address] [place] [phone] Alan Davenport MD [facility] [place] [address] Social History Tobacco Use Types Packs/Day Years [...] Description 08/04/2024 11:30 AM CDT Appointment [facility] MRI [address] [place] [address] Thomas Mendoza MD [address] [facility] 2L [place] [address] 08/04/2024 1:30 PM CDT Office Visit [facility] - Urology [address] [place] [address] Thomas Mendoza MD [address] [facility] 2L [place] [address] documented as of this encounter Procedures Procedure Name Priority Date/Time Associated Diagnosis Comments HOLD HLA SPECIMEN Routine 10/22/2023 3:5 0 PM CDT documented in this encounter Results * HOLD HLA SPECIMEN (10/22/2023 3:50 PM CDT) Hold HLA Specimen 10/28/2023 5:00 PM CDT [facility]) Comment:The Hold HLA specime n has been received into the lab and will be held for 5 years at 4 degrees. Blood BLOOD SPECIMEN / Unknown 10/22/2023 3:50 PM CDT 10/28/2023 3:50 PM CDT Alan Davenport MD LAB - BLOOD BANK ORD ERABLES [facility] ([facility]) [address] [place], [place] [id number] [place] [address] documented in this encounter Visit Diagnoses Not on filedocumented in this encounter Care Teams Tangled Yarn Spool Straightener Relationship Specialty Start Date End Date Jeff Strickland MD [address] [place] [address] PCP - General 03/05/18 [place] [address] [address] Orthopedic Surgery 03/28/17 documented as of this encounter
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
--- OUTSIDE RECORDS SUMMARY | 2024-04-03 02:40 | XMS_ITS ---
Author Organization [facility] Address [address] [place] [address] [place] [address] Care Team Providers Care Terminal Worker Name Role Phone DONNIE WOOD MD Primary Care Provider Robba Sergio Trujillo Unavailable [phone] REASON FOR VISIT BILAT SHOULDER JOINT INJECTION (NEED XRAY - BEING DONE AT [facility]) MEDICATIONS Medication SIG (Take, Route, Frequency, [...] Date Provider Diagnosis [facility] [address] [place] [phone] 03/08/2024 Sergio Rivera Primary osteoarthritis, unspecified shoulder [...] discharged home in good condition with a caterpillar driver. X-ray time: 6 seconds Progress Notes [...] patient's typical axial low back pain. John's, Westmoreland's and Gaenslen's are positive bilaterally. There is [...] Plan documen wendy:: Yes MIPS Quality 2020: [facility] Documented:: Compliant
--- OUTSIDE RECORDS SUMMARY | 2024-04-03 02:40 | XMS_ITS ---
Author Organization [facility] Address [address] [place] [address] [place] [address] Care Team Providers Care Guard Lieutenant Name Role Phone DONNIE WOOD MD Primary Care Provider Lance Sergio Trujillo Unavailable [phone] ALLERGIES No Known Allergies REASON FOR VISIT [...] Localized, primary osteoarthritis of the shoulder region ([id number]) VITAL SIGNS Blood pressure systolic 112 mm Hg 03/03/19 25 Blood pressure diastolic 62 mm Hg 025 Heart Rate 59 /min 03/03/2024 Respiratory Rate 18 /min 03/03/2024 Height 5 ft 9 in in 03/03/2024 Weight 229 lbs 03/03/2024 BMI 33.81 kg/m2 03/03/2024 Encounters Encounter Location Date Provider Diagnosis [facility] [address] [place] [address] 03/03/2024 Sergio Stynowick Pain in left knee M25.562 ; Primary osteoarthritis, unspecified shoulder M19.019 ; Other chest pain R07.89 ; Radiculopathy, lumbar region M54.16 ; Other intervertebral disc degeneration, lumbar region M51.36 ; 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 John's, [place]'s and Gaenslen's are positive bilaterally. There is [...] and Follow-up: Follow-up Plan doclana wendy:: Yes [facility] Quality 2020: MIPS Documented:: Compliant
--- OUTSIDE RECORDS SUMMARY | 2024-04-03 02:40 | XMS_ITS | Clinical Summary ---
Author Organization [facility] Address [facility] [place] [address] Care Team Providers Care Bolt Machine Operator Name Role Phone Jeff Strickland MD Primary Care Provider [phone] Allergies Active Allergy Reactions Criticality Noted Date [...] by mouth nightly at bedtime. Active Multiple Vitamins-Saddle Stitch Operator als (PRESERVISION AREDS 2 OR) Take 1 [...] drink = 0.6 oz pur e alcohol) [facility] Utilities Answer Date Recorded In [...] to sleep or slept in a senior care (including now)? 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
--- OUTSIDE RECORDS SUMMARY | 2024-04-03 02:40 | XMS_ITS | Encounter Summary ---
Author Organization [facility] Address [facility] [place] [address] Care Team Providers Care Cooper Helper Name Role Phone Deandre Bojorquez MD Unavailable [phone] Jeff Strickland MD Primary Care Provider [phone] Encounter Details Date Type Department Care Team (Late st Contact Info) Description 03/12/2024 Lab Requisition [facility] MAIN LAB [address] [place] [id number] Alan Davenport MD [facility] [place] [address] Social History Tobacco Use Types Packs/Day Years [...] Info) Description 08/04/2024 11:30 AM CDT Appointment [facility] MRI [address] [place] [address] Thomas Mendoza MD [address] [facility] 2L [place] [address] 08/04/2024 1:30 PM CDT Office Visit [facility] - Urology [address] [place] [address] Thomas Mendoza MD [address] [facility] 2L [place] [address] documented as of this encounter Procedures Procedure Name Priority Date/Time Associated Diagnosis Comments HOLD HLA SPECIMEN Routine 03/05/2024 1:4 0 PM IRRIGATION TAX ASSESSOR COLLECTOR documented in this encounter Results * HOLD HLA SPECIMEN (03/05/2024 1:40 PM IRRIGATION TAX ASSESSOR COLLECTOR) Hold HLA Specimen 03/12/2024 3:00 PM IRRIGATION TAX ASSESSOR COLLECTOR [facility] ([facility]) Comment:The Hold HLA specime n has been received into the lab and will be held for 5 years at 4 degrees. Blood BLOOD SPECIMEN / Unknown 03/05/2024 1:40 PM IRRIGATION TAX ASSESSOR COLLECTOR 03/12/2024 1:40 PM IRRIGATION TAX ASSESSOR COLLECTOR Alan Davenport MD LAB - BLOOD BANK ORD ERABLES [facility] ([facility]) [address] documented in this encounter Visit Diagnoses Not on filedocumented in this encounter Care Teams Cooper Helper Relationship Specialty Start Date End Date Jeff Strickland MD [address] [place] [address] PCP - General 03/05/18 [place] [address] [facility] [address] [place] [address] Orthopedic Surgery 03/28/17 documented as of this encounter
--- OUTSIDE RECORDS SUMMARY | 2024-04-03 02:40 | XMS_ITS | Clinical Summary ---
Author Organization [facility] Address [address], [place] [address] Phone Care Team Providers Care Balance Clerk Name Role Phone Jeff Strickland MD Primary Care Provider [phone] Allergies No known active allergies Medications Medication [...] tablet 3 11/29/2019 Active Continuous Blood Gluc Station Engineer Chief (FreeStyle Em [place]) device 1 each daily 12/01/2019 Active Continuous Blood Gluc Sensor (FreeStyle Em Sensor System) misc 1 each once every 2 weeks 12/01/2019 Active Lancets (OneTouch Delica Plus Meagnn23N) misc OneTouch Delica Plus Lancet 33 gauge [...] 11/10/2019 Overview (12/17/2019): Kendall Carl 1955 Referring Professor Of Art History: Alan Mccall Dialysis Info: NOD GFR 13 Type: Time: (Not currently on dialysis) days Blood Type: O NEG Body mass index is 37.36 kg/m . ALERTS Senior Analyst Market Intelligence: needs to establish Past Medical History: Diagnosis Date Arthropathy RA. Dr Strickland manages. CHF (congestive heart failure) 2 yrs ago Teacher Vocal is Dr. Becerra in [place]. CKD (chronic kidney disease), stage V Community acquired pneumonia 2018 [facility] hospitalized. Diabetes mellitus 20 years. Lantus pen. Esophageal reflux takes med Hypercholesteremia 5-10 yrs meds Hypertension takes meds Hypothyroidism meds 20 years Kidney stones 5-6 years ago had 2 in the same year. Malignancy right kidney 2012 Obstructive sleep apnea 3 years. [facility]. [place] remember doctors name Renal cell [...] file Gets together: Not on file Attends sabianism service: Not on file Active member of [...] this social and political studies professor that Kendall Carl has several positive factors for Kidney transplant candidacy from a psychosocial perspective. Patient appears to have appropriate knowledge of illness. Patient has sufficient insurance coverage and stable financial situation for post transplant needs. No concerns regarding substance abuse, legal issues, or mental health needs. Patient has adequate support system and appropriate discharge plan. Plan: adult day care worker to provide supportive services as needed. Patient appears to be a reasonable candidate for transplant from a psychosocial perspective. -Post transplant arrangement forms are needed prior to being listed. -Updated toxicology results needed, per protocol Psychiatric Consult Recommended: No Transplant Compounder: Joy Tam LCSW RD: 11/09/2019 BMI= [...] use my fitness pal or my food quality assurance coach) - Consume no more than 2000 [...] nephrectomy. 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 [id number] Immunizations Name Administration Dates Next Due Influenza [...] (#1) 2023 9, 04/10/2016, 04/09/2016 Care Teams Balance Clerk Relationship Specialty Start Date End Date Jeff Strickland MD [address] [facility] [address] [place] [address] PCP - General Internal Medicine 07/15/18
--- OUTSIDE RECORDS SUMMARY | 2024-04-03 02:40 | XMS_ITS | Continuity of Care Document ---
Author Organization [facility] Address [address] [place] [address] Phone Care Team Providers Care Evs Manager Name Role Phone Kee Rodriguez Unavailable Unavailable Procedures Procedure Date Office/outpatient Visit, Est Eye Exam Established Pt Advance Directives Directive Yes / No Effective Date File Name No Information Encounters Encounter Description Practice Location Reason(s) For Visit Diagnoses Date Provider Providers Copied on Encounter Office/outpat ient Visit, Est [facility], [address] [place] [address] [address], [place], [place], [id number], tel:[phone] SEC [facility] [place] [facility] No Information Mar-0 2-201 0 Krishnasamy Kee. [address] [facility] [place] [address], [place], [place], [facility], [place]. tel:[phone] Merged with [facility], [address] [place] [address] [address], [place], [place], [id number], tel:[phone] [facility] No Information Nhan-3 0-200 7 David OD Freddy. [address], [place], [place], [facility], [place]. tel:[phone] Family History Family Member Type Diagnosis Age [...]
--- OUTSIDE RECORDS SUMMARY | 2024-04-03 02:40 | XMS_ITS | Encounter Summary ---
Author Organization [facility] Address [facility] [place] [address] Care Team Providers Care Batch Mixing Truck Driver Name Role Phone Deandre Bojorquez MD Unavailable [phone] Jeff Strickland MD Primary Care Provider [phone] Encounter Details Date Type Department Care Team (Late st Contact Info) Description 05/29/2023 Lab Requisition [facility] MAIN LAB [address] [place] [phone] Alan Davenport MD [facility] OF [place] [address] Social History Tobacco Use Types Packs/Day Years [...] Description 08/04/2024 11:30 AM CDT Appointment [facility] MRI [address] [place] [address] Thomas Mendoza MD [address] [facility] 2L [place] [address] 08/04/2024 1:30 PM CDT Office Visit [facility] - Urology [address] [place] [address] Thomas Mendoza MD [address] [facility] 2L [place] [address] documented as of this encounter Procedures Procedure Name Priority Date/Time Associated Diagnosis Comments HOLD HLA SPECIMEN Routine 05/21/2023 9:2 4 AM CDT documented in this encounter Results * HOLD HLA SPECIMEN (05/21/2023 9:24 AM CDT) Hold HLA Specimen 05/29/2023 10:30 AM CDT [facility] ([employer]) Comment:The Hold HLA specime n has been received into the lab and will be held for 5 years at 4 degrees. Blood BLOOD SPECIMEN / Unknown 05/21/2023 9:24 AM CDT 05/29/2023 9:24 AM CDT Alan Davenport MD LAB - BLOOD BANK ORD ERABLES [facility] ([employer]) [address] [place], [place] [address] [place] [address] documented in this encounter Visit Diagnoses Not on filedocumented in this encounter Care Teams Batch Mixing Truck Driver Relationship Specialty Start Date End Date Jeff Strickland MD [address] [place] [address] PCP - General 03/05/18 [place] [address] [address] Orthopedic Surgery 03/28/17 documented as of this encounter
[2024-04-03 02:42] VITALS: TEMP 38.9
[2024-04-03 03:12] VITALS: BMI 40.5
[2024-04-03 04:00] VITALS: BP 164/60; PULSE 81; RESP 16; TEMP 37.7; O2SAT 95
--- NOTE | 2024-04-03 04:45 | ADMGEN ---
This patient, Kendall Carl, was admitted to [facility] Surg Room 333-01. Patient/family oriented to hospital policies and general routines including ID bracelet, bed and alarms, visiting hours, pain management, procedures, bathroom and other care routines, personal items, smoking policy, room service/diet, and visiting hours. Information on how to activate the Rapid Response Team has been discussed. Patient/Family are encouraged to report perceived risks to care and to ask questions if they do not understand what they are told or what they should do.
[2024-04-03 06:09] LABS: Lactic Acid 1.8 mmol/L (0.7-2.0)
--- OUTSIDE RECORDS SUMMARY | 2024-04-03 08:23 | XMS_ITS | Encounter Summary ---
Author Organization [facility] Address [facility] [place] [address] Care Team Providers Care Reporting Analyst Name Role Phone Deandre Bojorquez MD Unavailable [phone] Jeff Strickland MD Primary Care Provider [phone] Encounter Details Date Type Department Care Team (Late st Contact Info) Description 10/28/2023 Lab Requisition [facility] MAIN LAB [address] [place] [phone] Alan Davenport MD [place] [place] [address] Social History Tobacco Use Types Packs/Day Years [...] CDT Appointment [facility] MRI [address] [place] [address] Thomas Mendoza MD 12[address] [facility] 2L DIV [place] [address] 08/04/2024 1:30 PM CDT Office Visit [facility] - Urology [address] [place] [address] Thomas Mendoza MD 12[address] [facility] 2L DIV [place] [address] documented as of this encounter Procedures Procedure Name Priority Date/Time Associated Diagnosis Comments HOLD HLA SPECIMEN Routine 10/22/2023 3:5 0 PM CDT documented in this encounter Results * HOLD HLA SPECIMEN (10/22/2023 3:50 PM CDT) Hold HLA Specimen 10/28/2023 5:00 PM CDT [facility] ([facility]) Comment:The Hold HLA specime n has been received into the lab and will be held for 5 years at 4 degrees. Blood BLOOD SPECIMEN / Unknown 10/22/2023 3:50 PM CDT 10/28/2023 3:50 PM CDT Alan Dvaenport MD LAB - BLOOD BANK ORD ERABLES [facility] ([facility]) [address] [place], [place] [id number] [place] [address] documented in this encounter Visit Diagnoses Not on filedocumented in this encounter Care Teams Reporting Analyst Relationship Specialty Start Date End Date Jeff Strickland MD [address] [place] [address] PCP - General 03/05/18 [place] [address] [address] Orthopedic Surgery 03/28/17 documented as of this encounter
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
--- OUTSIDE RECORDS SUMMARY | 2024-04-03 08:23 | XMS_ITS | Encounter Summary ---
Author Organization [facility] Address [facility] [place] [address] Care Team Providers Care Head Doffer Name Role Phone Deandre Bojorquez MD Unavailable Jeff Strickland MD Primary Care Provider [phone] Encounter Details Date Type Department Care Team (Late st Contact Info) Description 11/21/2023 Lab Requisition [facility] MAIN LAB [address] [place] [phone] Alan Davenport MD [facility] [place] [address] Social History Tobacco Use Types Packs/Day Years [...] Description 08/04/2024 11:30 AM CDT Appointment [facility] MRI [address] [place] [address] Thomas Mendoza MD 1225 [facility] 2L DIV [place] [address] 08/04/2024 1:30 PM CDT Office Visit [facility] Physician Group - Urology [address] [place] [address] Thomas Mendoza MD 1225 [facility] 2L DIV [place] [address] documented as of this encounter Procedures Procedure Name Priority Date/Time Associated Diagnosis Comments HOLD HLA SPECIMEN Routine 11/18/2023 12: 16 PM CDT documented in this encounter Results * HOLD HLA SPECIMEN (11/18/2023 12:16 PM CDT) Hold HLA Specimen 11/21/2023 1:[address] [facility] ([facility]) Comment:The Hold HLA specime n has been received into the lab and will be held for 5 years at 4 degrees. Blood BLOOD SPECIMEN / Unknown 11/18/2023 12:16 PM CDT 11/21/2023 12:17 PM CDT Alan Davenport MD LAB - BLOOD BANK ORD ERABLES [facility] ([facility] [address] [place] [address], [facility] documented in this encounter Visit Diagnoses Not on filedocumented in this encounter Care Teams Head Doffer Relationship Specialty Start Date End Date Jeff Strickland MD [address] [place] [address] PCP - General 03/05/18 [place] [address] [address] Orthopedic Surgery 03/28/17 documented as of this encounter
--- OUTSIDE RECORDS SUMMARY | 2024-04-03 08:23 | XMS_ITS | Encounter Summary ---
Author Organization [facility] Address [facility] [place] [address] Care Team Providers Care Night Club Manager Name Role Phone eDandre Bojorquez MD Unavailable [phone] Jeff Strickland MD Primary Care Provider Encounter Details Date Type Department Care Team (Late st Contact Info) Description 09/30/2023 Lab Requisition [facility] MAIN LAB [address] [place] [phone] Alan Davenport MD [facility] [place] [address] Social History Tobacco Use Types Packs/Day Years [...] CDT Appointment [facility] MRI [address] [place] [address] Thomas Mendoza MD 12[address] [facility] 2L DIV [place] [address] 08/04/2024 1:30 PM CDT Office Visit [facility] Physician Group - Urology [address] [place] [address] Thomas Mendoza MD [address] [facility] 2L DIV [place] [address] documented as of this encounter Procedures Procedure Name Priority Date/Time Associated Diagnosis Comments HOLD HLA SPECIMEN Routine 09/24/2023 3:2 7 PM CDT documented in this encounter Results * HOLD HLA SPECIMEN (09/24/2023 3:27 PM CDT) Hold HLA Specimen 09/30/2023 4:32 PM CDT [facility] ([facility]) Comment:The Hold HLA specime n has been received into the lab and will be held for 5 years at 4 degrees. Blood BLOOD SPECIMEN / Unknown 09/24/2023 3:27 PM CDT 09/30/2023 3:27 PM CDT Alan Davenport MD LAB - BLOOD BANK ORD ERABLES [facility] ([facility]) [address] [place], [place] [address] [place] [address] documented in this encounter Visit Diagnoses Not on filedocumented in this encounter Care Teams Night Club Manager Relationship Specialty Start Date End Date Jeff Strickland MD [address] [place] [address] PCP - General 03/05/18 [place] [address] [address] Orthopedic Surgery 03/28/17 documented as of this encounter
--- OUTSIDE RECORDS SUMMARY | 2024-04-03 08:23 | XMS_ITS | Encounter Summary ---
Author Organization [facility] Address [facility]3 [facility] [place] [address] Care Team Providers Care Capability Lead Name Role Phone Deandre Bojorquez MD Unavailable Jeff Strickland MD Primary Care Provider [phone] Encounter Details Date Type Department Care Team (Late st Contact Info) Description 07/31/2023 Lab Requisition [facility] MAIN LAB [address] [place] [phone] Alan Davenport MD [facility] [place] [address] Social History Tobacco Use Types Packs/Day Years [...] CDT Appointment [facility] MRI [address] [place] [address] Thomas Mendoza MD [address]25 [facility] 2L [place] [address] 08/04/2024 1:30 PM CDT Office Visit [facility]ician Group - Urology [address] [place] [address] Thomas Mendoza MD 12[address] [facility] 2L [place] [address] documented as of this encounter Procedures Procedure Name Priority Date/Time Associated Diagnosis Comments HOLD HLA SPECIMEN Routine 07/23/2023 2:0 5 PM CDT documented in this encounter Results * HOLD HLA SPECIMEN (07/23/2023 2:05 PM CDT) Hold HLA Specimen 07/31/2023 3:32 PM CDT [facility] ([facility]) Comment:The Hold HLA specime n has been received into the lab and will be held for 5 years at 4 degrees. Blood BLOOD SPECIMEN / Unknown 07/23/2023 2:05 PM CDT 07/31/2023 2:06 PM CDT Alan Davenport MD LAB - BLOOD BANK ORD ERABLES [facility] ([place]) [address] [place], [place] [address] [place] [address] documented in this encounter Visit Diagnoses Not on filedocumented in this encounter Care Teams Capability Lead Relationship Specialty Start Date End Date Jeff Strickland MD [address] [place] [address] PCP - General 03/05/18 [place] [address] [address] Orthopedic Surgery 03/28/17 documented as of this encounter
--- OUTSIDE RECORDS SUMMARY | 2024-04-03 08:23 | XMS_ITS ---
Author Organization [facility] Address [address] [place] [address] Care Team Providers Care Melt Helper Name Role Phone Jeff Strickland MD Primary Care Provider Chan Nicholas MD Unavailable [phone] Alan Mccall MD Unavailable [phone] Pepito Haro MD PhD Unavailable [phone] Solange Guido MD Unavailable [phone] Dialysis Access Sites Type Status Location Placement Date Removal Da te Peritoneal Dialysis Catheter Mid lower abdomen Active Abdomen - Lower, Medial (Navel) Hemodialysis Cath Double Inactive Right Breast - Upper 05/01/2021 Hemodialysis Cath Double Inactive Right Breast - Upper 0 05/02/2021 11/22/2021 Procedures Procedure Name Priority Date/Time Associated Diagnosis Comments OCT, RETINA - OU - BOTH EYES Routine 03/09/2024 2:00 PM PHARMACY MESSENGER Cystoid macular edema of both eyes POCT [...] day with meals 06/27/19 21 Active vit C,Y-Mq-dkbyr-lutein- zeaxan 250-90-40-1 mg capsule Take 1 capsule [...] day as needed (nasal irrigation) Active FA-vit Bcvmq-Z-pkod-vitamin D3 (Dialyvite 800-Ultra D) 0.8-2,000 mg-unit tablet [...] up Assessment & Plan (03/09/2024 6:25 PM PHARMACY MESSENGER): Vision OD trends mild improvement, though still [...] We discussed that genetic results would not oil change technician. Given we have exhausted available treatment without [...] 2 weeks and [facility] for repeat DFEx [...] 03/26/2021 Assessment & Plan (03/26/2021 1:17 PM PHARMACY MESSENGER): Enlarged mild sella turcica on a routine [...] units Assessment & Plan (03/26/2021 1:17 PM PHARMACY MESSENGER): Chronic, uncontrolled, improving A1c today 7.7 % [...] WNL Assessment & Plan (03/26/2021 1:16 PM PHARMACY MESSENGER): Pt currently on Levothyroxine 112 mcg oral [...] 11/18/2018 Assessment & Plan (01/21/2019 2:02 PM PHARMACY MESSENGER): Symptomatic. Will request for esophageal manometry. Continue [...] 06/09/2018 Chronic diastolic CHF (congestive heart failure) ([facility]) 05/18/2018 SHABNAM on CPAP 05/18/2018 Obesity (BMI 30-39.9) 05/18/2018 Stage 5 chronic kidney disease ([facility]) 019 Hyperlipidemia associated with type 2 diabetes eboni gonzalez 12/03/2017 Assessment & Plan (10/30/2021 8:35 PM CDT): On statin therapy Tolerating well Assessment & Plan (03/26/2021 1:16 PM PHARMACY MESSENGER): On statin therapy Tolerating well Last lipid [...] nephrectomy. 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 [id number] Immunizations Name Administration Dates Next Due Hep [...] = 0.6 oz pur e alcohol) rarely [employer] Answer Date Recorded In the past 12 months has [employer], gas, oil, or water [employer] threatened to shut off services in your [...] often do you attend chur ch or judaism services? Never 03/25/2023 Do you belong to any clubs o r organizations such as rastafari groups, unions, fraternal or athletic groups, or [...] on file Legal Sex Male 2:23 AM PHARMACY MESSENGER Gender Identity Not on file Sexual Orientation [...] OU - Both Eyes (03/09/2024 2:00 PM PHARMACY MESSENGER) Central Macular Thickness OS 227 micrometers CONTINUUM Central Macular Thickness OD 479 micrometers CONTINUUM Anatomical Region Laterality Modality Head Optical Coherenc e Tomography Narrative 03/16/2024 12:53 PM PHARMACY MESSENGER Right Eye Quality was good. Scan locations [...] was last reviewed 2020. Testing performed by: [facility], [address] [place] [address]., [id number] Blood 08/11/2023 7:50 PM CDT 08/11/2023 8:05 PM CDT us Leni Cervantes MD LAB BLOOD ORDERABLES Kenna l Result [facility] [address] [facility] Department [place] [address] * (ABNORMAL) Lipid panel (11/30/2022 [...] revised on 2017. Triglycerides 439(H) <=149 mg/dL [facility] Comment: Interpretive Data Ages < or = [...] revised on 2017. HDL 26(L) >=40 mg/dL [facility] Comment: Interpretive Data Ages < or = [...] on 2017. LDL, calculated See Comment <=129 [facility] Comment: Unable to calculate LDL due to [...] [facility] [place] [address] from Last 3 Months or Most Recently Relevant to Health Maintenance
--- OUTSIDE RECORDS SUMMARY | 2024-04-03 08:23 | XMS_ITS ---
Author Organization [facility] Address [facility] [place] [address] Care Team Providers Care Communications And Signals Supervisor Name Role Phone Jeff Strickland MD Primary Care Provider Chan Nicholas MD Unavailable [phone] Alan Mccall MD Unavailable Pepito Haro MD PhD Unavailable [phone] Solange Guido MD Unavailable [phone] Active Problems Problem Noted Date Diagnosed Date [...] warrant further PDT. - Patient returned to [facility] for ongoing care and follow up Assessment & Plan (03/09/2024 6:25 PM TAX MANAGER PUBLIC): Vision OD trends mild improvement, though still [...] is improving spontaneously, patient can follow in [facility]. Assessment & Plan (10/08/2023 2:51 PM CDT): [...] 2 weeks and have patient return to [facility] retina in 4 weeks [...] patient here 4 weeks ago. Given fluid, ONRMA OD given at that visit. OCT mac [...] End-stage renal disease on peritoneal dialysis ( [facility]) 04/24/2023 Hypertensive renal failure 04/24/2023 Secondary [...] 03/26/2021 Assessment & Plan (03/26/2021 1:17 PM TAX MANAGER PUBLIC): Enlarged mild sella turcica on a routine [...] units Assessment & Plan (03/26/2021 1:17 PM TAX MANAGER PUBLIC): Chronic, uncontrolled, improving A1c today 7.7 % [...] WNL Assessment & Plan (03/26/2021 1:16 PM TAX MANAGER PUBLIC): Pt currently on Levothyroxine 112 mcg oral [...] 11/18/2018 Assessment & Plan (01/21/2019 2:02 PM TAX MANAGER PUBLIC): Symptomatic. Will request for esophageal manometry. Continue [...] 06/09/2018 Chronic diastolic CHF (congestive heart failure) ([facility]) 05/18/2018 SHABNAM on CPAP 05/18/2018 Obesity (BMI 30-39.9) 05/18/2018 Stage 5 chronic kidney disease (CMS/HCC) 019 Hyperlipidemia associated with type 2 diabetes eboni gonzalez 12/03/2017 Assessment & Plan (10/30/2021 8:35 PM CDT): On statin therapy Tolerating well Assessment & Plan (03/26/2021 1:16 PM TAX MANAGER PUBLIC): On statin therapy Tolerating well Last lipid [...] nephrectomy. 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 [id number] Current Oncology Plans No current plan information found. Past Plans No past plan information found. Radiation Treatments * No radiation treatments are documented for this patient in [facility]. Treatments may have been administered in [...] were not included. Kendall Carl 1955 Referring Donor Services Specialist: Alan Mccall Dialysis Info: NOD GFR 13 Type: Time: (Not currently on dialysis) days Blood Type: O NEG Body mass index is 37.36 kg/m . ALERTS Swager Operator: needs to establish Past Medical History: Diagnosis Date Arthropathy RA. Dr Strickland manages. CHF (congestive heart failure) 2 yrs ago Applications Programmer is Dr. Becerra in [place]. CKD (chronic kidney disease), stage V Community acquired pneumonia 2018 [facility] hospitalized. Diabetes mellitus 20 years. Lantus pen. Esophageal reflux takes med Hypercholesteremia 5-10 yrs meds Hypertension takes meds Hypothyroidism meds 20 years Kidney stones 5-6 years ago had 2 in the same year. Malignancy right kidney 2012 Obstructive sleep apnea 3 years. [facility]. Cannont remember doctors name Renal cell [...] Impression: It is the impression of this delinquency prevention social worker that Kendall Carl has several positive factors for Kidney transplant candidacy from a psychosocial perspective. Patient appears to have appropriate knowledge of illness. Patient has sufficient insurance coverage and stable financial situation for post transplant needs. No concerns regarding substance abuse, legal issues, or mental health needs. Patient has adequate support system and appropriate discharge plan. Plan: field ironworker to provide supportive services as needed. Patient appears to be a reasonable candidate for transplant from a psychosocial perspective. -Post transplant arrangement forms are needed prior to being listed. -Updated toxicology results needed, per protocol Psychiatric Consult Recommended: No Transplant Medical Appliance Maker: Joy Tam LCSW RD: 11/09/2019 BMI= 36.2, [...] use my fitness pal or my food cross country/track and field coach) - Consume no more than 2000 calories a day E-mailed pt's a 2000 calorie, CKD meal plan. Items Still Pending: Clinic, colonoscopy Acute pain of left shoulder 01/25/2019 03/25/2023 Non-cardiac chest pain 11/18/201803/25 Assessment & Plan (01/21/2019 2:02 PM TAX MANAGER PUBLIC): The pain is persistent. The patient described [...] has had extensive cardiac workup by the secondary spanish teacher including coronary angiogram. He has chest pain [...] CKD stage 4 secondary to hyp ertension ([facility]) 05/18/2018 03/25/2023 Poor diet 05/18/2018 03/25/2023 Dizziness 05/18/2018 03/25/2023 Type 2 diabetes mellitus wit hout complication ([facility]) 12/03/2017 03/25/2023 Kidney disease 08/06/2017 03/25/2023 Obstructive sleep apnea 10/22/201607/2023
--- OUTSIDE RECORDS SUMMARY | 2024-04-03 08:23 | XMS_ITS | Encounter Summary ---
Author Organization [facility] Address [facility] [place] [address] Care Team Providers Care Student Support Counselor Name Role Phone Deandre Bojorquez MD Unavailable [phone] Jeff Strickland MD Primary Care Provider Encounter Details Date Type Department Care Team (Late st Contact Info) Description 02/04/2024 Lab Requisition [facility] MAIN LAB [address] [place] [id number] Alan Davenport MD [facility] [place] [address] Social History Tobacco Use Types Packs/Day Years [...] Description 08/04/2024 11:30 AM CDT Appointment [facility] MRI [address] [place] [address] Thomas Mendoza MD [address] [facility] 2L [place] [address] 08/04/2024 1:30 PM CDT Office Visit [facility] - Urology [address] [place] [address] Thomas Mendoza MD [address] [facility] 2L [place] [address] documented as of this encounter Procedures Procedure Name Priority Date/Time Associated Diagnosis Comments HOLD HLA SPECIMEN Routine 01/27/2024 3:2 3 PM COMMISSARY ASSISTANT documented in this encounter Results * HOLD HLA SPECIMEN (01/27/2024 3:23 PM COMMISSARY ASSISTANT) Hold HLA Specimen 02/04/2024 4:31 PM COMMISSARY ASSISTANT [facility] ([facility]) Comment:The Hold HLA specime n has been received into the lab and will be held for 5 years at 4 degrees. Blood BLOOD SPECIMEN / Unknown 01/27/2024 3:23 PM COMMISSARY ASSISTANT 02/04/2024 3:23 PM COMMISSARY ASSISTANT Alan Davenport MD LAB - BLOOD BANK ORD ERABLES [facility] ([employer]) [address] documented in this encounter Visit Diagnoses Not on filedocumented in this encounter Care Teams Student Support Counselor Relationship Specialty Start Date End Date Jeff Strickland MD [address] [place] [address] PCP - General 03/05/18 [place] [address] [facility] [place] [facility] [address] [place] [id number] Orthopedic Surgery 03/28/17 documented as of this encounter
--- OUTSIDE RECORDS SUMMARY | 2024-04-03 08:24 | XMS_ITS | Encounter Summary ---
Author Organization [facility] Address [facility] [place] [address] Care Team Providers Care Plastics Heat Welder Name Role Phone Deandre Bojorquez MD Unavailable [phone] Jeff Strickland MD Primary Care Provider [phone] Encounter Details Date Type Department Care Team (Late st Contact Info) Description 03/12/2024 Lab Requisition [facility] MAIN LAB [address] [place] [phone] Alan Davenport MD [facility] [place] [address] Social History Tobacco Use Types Packs/Day Years [...] Description 08/04/2024 11:30 AM CDT Appointment [facility] MRI [address] [place] [address] Thomas Mendoza MD [address] [facility] 2L [place] [address] 08/04/2024 1:30 PM CDT Office Visit [facility] - Urology [address] [place] [address] Thomas Mendoza MD [address] [facility] 2L DIV [place] [phone] documented as of this encounter Procedures Procedure Name Priority Date/Time Associated Diagnosis Comments HOLD HLA SPECIMEN Routine 03/05/2024 1:4 0 PM RIG MECHANIC documented in this encounter Results * HOLD HLA SPECIMEN (03/05/2024 1:40 PM RIG MECHANIC) Hold HLA Specimen 03/12/2024 3:00 PM RIG MECHANIC [facility] ([facility]) Comment:The Hold HLA specime n has been received into the lab and will be held for 5 years at 4 degrees. Blood BLOOD SPECIMEN / Unknown 03/05/2024 1:40 PM RIG MECHANIC 03/12/2024 1:40 PM RIG MECHANIC Alan Davenport MD LAB - BLOOD BANK ORD ERABLES [facility] ([employer]) [address] documented in this encounter Visit Diagnoses Not on filedocumented in this encounter Care Teams Plastics Heat Welder Relationship Specialty Start Date End Date Jeff Strickland MD [address] [place] [address] PCP - General 03/05/18 [place] [address] [facility] [address] [place] [id number] Orthopedic Surgery 03/28/17 documented as of this encounter
--- OUTSIDE RECORDS SUMMARY | 2024-04-03 08:24 | XMS_ITS | Patient Health Summary ---
Author Organization [facility] Address [address] [place] [address] Care Team Providers Care Beautician Apprentice Name Role Phone Deandre Bojorquez MD Unavailable [phone] eJff Strickland MD Primary Care Provider [phone] Note from [facility],non-owned Affiliates and Associated Physician Practices is amultiple site organization consisting of ambulatory clinics and hospital sitesin [place], [place], [place] and [place]. This disclosure is being madepursuant to the Care Everywhere program and may not contain all information available regarding this patient. Last updated 17.[facility] Allergies * Oxycodone(Psychiatric) -Medium Criticality Medications * [...] daily 3 refills by 01/07/2025 * B Lxwvcax-U-Uhuqe Acid (Dialyvite 800) 0.8 MG 1 tablet [...] Type 2 diabetes mellitus 12/04/2020 CAD in [place] artery 08/04/2020 Pre-transplant evaluation for kidney transplant 11/10/2019 Presence of right artificial knee joint 03/28/19 18 Immunizations * CovMersive primary monovalent 12+ yr 0.3mL Purple cap(Given [...] Comments Blood Pressure 134/74 03/03/2024 12:47 PM [facility] ARCHITECT Pulse 65 03/03/2024 12:47 PM [employer] ARCHIT[facility] Temperature 36.2 C (97.2 F) 08/06/2023 1:56 PM CDT Respiratory Rate 18 01/14/2022 1:01 PM [employer] ARCHITECT Oxygen Saturation 96% 03/03/2024 12:47 PM [employer] ARCHITECT Inhaled Oxygen Concentration - - Weight 119.7 kg (264 lb) 03/03/2024 12:47 PM [employer] ARCHITECT Height 172.7 cm (5' 8 ) 03/03/2024 12:47 PM [employer] ARCHITECT Body Mass Index 40.14 03/03/2024 12:47 PM [facility] ARCHITECT Medical Devices Implanted Type Area Rapid Transit Operator Device Identifier Shelf Expiration Date Model / Serial / Lot Sys Cor Stent Xience Srr 3mm 18mm Rap Ex Implanted:Qty: 1 on 08/04/2020 by Javier Lan MD at [facility] Stent Coronary [employer] 06/19/2022 [id number] Description:STENT Sys Cor Stent Xience Srr 3mm 8mm Rap Ex Implanted:Qty: 1 on 08/04/2020 by Javier Lan MD at [facility] Stent Coronary [employer] 09/03/2021 [id number] Description:stent Procedures * HOLD HLA SPECIMEN(Performed 03/25/2024) [...] unspecified vessel or lesion type, unspecified whether [place] or transplanted heart (HCC), Congestive heart failure, unspecified HF chronicity, unspecified heart failure type (HCC), Type 2 diabetes mellitus with chronic kidney disease on chronic dialysis, without long-term current use of insulin (HCC), Hypertension, unspecified type * STRESS TEST(Performed 11/06/2022) Performed for Pre-kidney transplant, listed, Coronary artery disease with angina pectoris, unspecified vessel or lesion type, unspecified whether [place] or transplanted heart (HCC), Congestive heart failure, unspecified HF chronicity, unspecified heart failure type (HCC), Type 2 diabetes mellitus with chronic kidney disease on chronic dialysis, without long-term current use of insulin (HCC), Hypertension, unspecified type * ECHO COMPLETE(Performed 11/06/2022) Performed for Pre-kidney transplant, listed, Coronary artery disease with angina pectoris, unspecified vessel or lesion type, unspecified whether [place] or transplanted heart (HCC), Congestive heart failure, [...] 11/07/2021) Performed for Coronary artery disease involving [place] coronary artery of [place] heart without angina pectoris * IR CENTRAL [...] 08/04/2020) Performed for Coronary artery disease involving [place] coronary artery of [place] heart with angina pectoris (HCC), Pre-transplant evaluation [...] 06/15/2020) Performed for Coronary artery disease involving [place] coronary artery of [place] heart without angina pectoris * LIPID PROFILE(Performed 06/15/2020) Performed for Coronary artery disease involving [place] coronary artery of [place] heart without angina pectoris * CT KIDNEYS [...] * HOLD HLA SPECIMEN (03/25/2024 2:51 PM BI SOL[facility] ARCHITECT) Only the most recent of10 resultswithin the time period is included. Hold HLA Specimen 03/30/2024 4:01 PM BI SOLUT[facility] ARCHITECT [facility] Comment:The Hold HLA specime n has been received into the lab and will be held for 5 years at 4 degrees. Blood BLOOD SPECIMEN / Unknown 03/25/2024 2:51 PM [facility] ARCHITECT 03/30/2024 2:51 PM BI SOL[employer] ARCHITECT Alan Davenport MD LAB - BLOOD BANK ORD ERABLES [facility] [address] [place] [address] * EKG 12-LEAD (10/14/2023 11:24 AM CDT) Ventricular Rate 53 BPM [facility] Atrial Rate 53 BPM [facility] P-R Interval 170 ms [facility] QRS Duration ms 96 ms [facility] Q-T Interval ms 534 ms [facility] QTC Calculation (Bezet) 501 ms [facility] Calculated P Dutton 20 degrees [facility] Calculated R Dutton -50 degrees [facility] Calculated T Dutton -32 degrees [facility] Interpretation EKG SINUS BRADYCARDIA INCOMPLETE RIGHT BUNDLE BRANCH BLOCK LEFT ANTERIOR FASCICULAR BLOCK SEPTAL INFARCT , AGE UNDETERMINED PROLONGED QT ABNORMAL ECG NO PREVIOUS ECGS AVAILABLE Confirmed by SHANELL CAICEDO MD ([id number]) on 10/16/2023 10:56:56 AM [facility] 10/14/2023 11:2 4 AM CDT 10/16/2023 10:56 AM CDT Letha Christine MAT REPAIRER-FLAVIA ECG ORDERABLES Performing Organization Address City/[facility]/ZIP Co de Phone Number PATIENCE MUSE * [...] - 1.20 mg/dL 07/17/2023 10:59 AM CDT [facility] eGFR 16(L) >=90 mL/min/1.7 3 m2 07/17/2023 10:59 AM CDT [facility] Blood BLOOD SPECIMEN / Unknown 07/17/2023 10:44 AM CDT 07/17/2023 10:59 AM CDT Martinez Sandhu MD LAB - POINT OF CARE ORDERABLES [facility] [address] [place] [address] * US RETROPERITONEAL COMPLETE (05/21/2023 12:05 PM [...] component. Report dictated by Romel Hendricks MD, (head resident). > Dictated by Romel Hendricks MD (Dietitian Teaching) 05/21/2023 11:22 AM I, Lizandro Diaz MD have personally reviewed and interpreted this examination/study. > Interpreting Provider: Lizandro Diaz MD on 05/21/2023 12:34 PM Narrative 05/21/2023 12:34 PM CDT PROCEDURE: US RETROPERITONEAL COMPLETE, DATE/TIME OF EXAM: 05/21/2023 12:05 PM, LOCATION [facility] INDICATION: Z76.82: Pre-kidney transplant, listed Q61.02: [...] COMPLETE, DATE/TIME OF EXAM: 2:05 PM, LOCATION [facility] INDICATION: Z76.82: Pre-kidney transplant, listed Q61.02: [...] component. Report dictated by Romel Hendricks MD, (head resident). > Dictated by Romel Hendricks MD (Dietitian Teaching) 05/21/2023 11:22 AM I, Lizandro Diaz MD [...] above. > Dictated by Neeraj Johnson MD (Dietitian Teaching) 11/06/2022 12:04 PM I, Ariel Araya MD [...] unspecified vessel or lesion type, unspecified whether [place] or transplanted heart ([facility]/HCC) I50.9: Congestive heart failure, unspecified HF [...] pectoris, unspecifiedvessel or lesion type, unspecified whether [place] or transplanted heart([facility]) I50.9: Congestive heart failure, unspecified HF chronicity, unspecified heart failure type ([facility]) E11.22: Type 2 diabetes mellitus [...] above. > Dictated by Neeraj Johnson MD (Dietitian Teaching) 11/06/2022 12:04PM I, Ariel Araya MD have personally reviewed and interpreted this examination/study. > Interpreting Provider: Ariel Araya MD on 11/06/2022 4:[address] MD [place] ORDERABLES * STRESS TEST (11/06/2022 11:27 AM CDT) BSA 2.34 m2 [facility] Predicted METS 7.4 METS [facility] Target HR 131 bpm [facility] Max Age Predicted HR 154 bpm [facility] Baseline HR 56 bpm [facility] Stress peak HR 71 bpm [facility] Max HR Percent 46 % [facility] Baseline BP 153/70 mmHg [facility] Post peak BP 153/70 mmHg [facility] Target HR Percent 54 % [facility] Anatomical Region Laterality Modality Cardiac [...] per [place] tech, pt c/o dyspnea, VSS 35262- Test complete, VSS, symptoms resolved. IV dc'd. [...] * ECHO COMPLETE (11/06/2022 9:51 AM CDT) [facility] Signature BSA 2.6944508 m2 [facility] CV FUJ I PACS LV [...] Index 66 ml/m2 [facility] CV FUJI PACS [id number] 7.967 cm [facility] CV FUJ I PACS [id number] 8.115 cm [facility] CV FUJ I PACS [...] % PRA 0 11/13/2022 11:59 AM CDT [facility]) Class 2 LUM SAB Moderate Risk DQB1*06:01, 06:03 11/13/2022 11:59 AM CDT [facility]) Class 2 SAB Test Date [id number] 11/13/2022 11:59 AM CDT [facility]) Comment: This test was developed and its performance characteristics determined by the [facility]. It has not been cleared [...] high complexity clinical laboratory testing. CLIA ID# [id number] Performed at: [facility], [address] [place] [id number] Uat Tester:Dr. Juno Ledesma, PhD, Blood BLOOD SPECIMEN / Unknown No Charge Blood Draw / Unknown 10/28/2022 2:38 PM CDT 11/07/2022 2:38 PM CDT Alan Davenport MD LAB - BLOOD BANK ORD ERABLES [facility]) [address] [place] [id number] [place] [address] * HLA ANTIBODY SCREEN LUM CLASS 1 SAB (10/28/2022 2:38 PM CDT) Only the most recent of6 resultswithin the time period is included. % PRA 0 11/13/2022 11:59 AM CDT [facility]) Class 1 SAB Test Date [id number] 11/13/2022 11:59 AM CDT [facility]) Comment: This test was developed and its performance characteristics determined by the [facility]. It has not been cleared [...] high complexity clinical laboratory testing. CLIA ID# [id number] Performed at: [facility], [address] [place] [phone] Uat Tester:Dr. Juno Ledesma, PhD, Blood BLOOD SPECIMEN / Unknown No Charge Blood Draw / Unknown 10/28/2022 2:38 PM CDT 11/07/2022 2:38 PM CDT Alan Davenport MD LAB - BLOOD BANK ORD ERABLES [facility]) [address] [place] [address] * OXALATE BLOOD (03/04/2022 11:04 AM BI SOLUTIONS ARCHITECT) Oxalate <2.0 <=2.0 umol/L 03/09/2022 6:49 PM BI SOL[employer]IONS ARCHITECT [employer] ([facility]) Comment: INTERPRETIVE INFORMATION: Oxalate, Plasma This test was developed and its performance characteristics determined by [facility]. It has not been cleared or approved by the US Food and Drug Administration. This test was performed in a CLIA certified laboratory and is intended for clinical purposes. Performed By: [facility] [address] [place] [id number] Vehicle Cost Engineer: Mk Egan MD, PhD Blood BLOOD SPECIMEN / Unknown Lab Venipuncture / Unknown 03/04/2022 11:04 AM [facility] ARCHITECT 03/04/2022 11:08 AM BI SOLUTIONS ARCHITECT Scott Lane MD LAB - CHEMISTR Y ORDERABLES [facility]) [address] [place] [address], [facility] * MRI ABDOMEN WWO CONTRAST (03/04/2022 10:47 AM BI [facility] ARCHITECT) Anatomical Region Laterality Modality Abdomen Magnetic Resonan ce 03/04/2022 11:0 9 AM [facility] ARCHITECT Impressions 03/04/2022 1:36 PM [facility] ARCHITECT Impression: 1.Focally decreased signal on opposed-phase images [...] hemorrhagic. Report dictated by Ashkan Almeida MD (head resident). I, Watson Phillips MD have personally reviewed and interpreted this examination/study. > Interpreting Provider: Watson Phillips MD on 03/04/2022 1:36 PM Narrative 03/04/2022 1:36 PM [facility] ARCHITECT PROCEDURE: MRI ABDOMEN WWO CONTRAST, DATE/TIME OF EXAM: 03/04/2022 10:47 AM, LOCATION [facility] INDICATION: Z01.818: Pre-transplant evaluation for kidney [...] CONTRAST, DATE/TIME OF EXAM: 0:47 AM, LOCATION [facility] INDICATION: Z01.818: Pre-transplant evaluation for kidney [...] hemorrhagic. Report dictated by Ashkan Almeida MD (head resident). I, Watson Phillips MD have personally reviewed and interpreted this examination/study. > Interpreting Provider: Watson Phillips MD on 03/04/2022 1:[address] MD MR ORDERABLES * CT CHEST WO CONTRAST (03/04/2022 10:43 AM BI [facility] ARCHITECT) Only the most recent of2 resultswithin the time period is included. Anatomical Region Laterality Modality Chest Computed Tomogra phy 03/04/2022 11:1 0 AM [facility] ARCHITECT Impressions 03/04/2022 12:25 PM [facility] ARCHITECT Impression: 1.Unchanged left lower lobe pulmonary nodules. [...] nature. > Dictated by Luis Muñoz DO (head resident). I, Wilfrid Fonseca have personally reviewed and interpreted this examination/study. > Interpreting Provider: Wilfrid Fonseca on 03/04/2022 12:25 PM Narrative 03/04/2022 12:25 PM BI [facility] ARCHITECT PROCEDURE: CT CHEST WO CONTRAST, DATE/TIME OF EXAM: 03/04/2022 10:43 AM, LOCATION [facility] INDICATION: Z01.818: Pre-transplant evaluation for kidney [...] CONTRAST, DATE/TIME OF EXAM: 03/04/2022 10:43AM, LOCATION [facility] INDICATION: Z01.818: Pre-transplant evaluation for kidney [...] nature. > Dictated by Luis Muñoz DO (head resident). Wilfrid Leigh have personally reviewed and interpreted this examination/study. > Interpreting Provider: Wilfrid Fonseca on 03/04/2022 12:[address] ORDERABLES * XR CHEST PA AND LATERAL (01/14/2022 10:12 AM BI [facility] ARCHITECT) Only the most recent of2 resultswithin the time period is included. Anatomical Region Laterality Modality Chest Radiographic Pastora ging 01/14/2022 10:2 3 AM [facility] ARCHITECT Narrative 01/14/2022 2:50 PM [facility] ARCHITECT PROCEDURE: XR CHEST 2VW, DATE/TIME OF EXAM: 01/14/2022 10:12 AM, LOCATION [facility] INDICATION: Z01.818: Pre-transplant evaluation for kidney [...] hyperostosis. Report dictated by Ruddy Trivedi MD (head resident). Terry Leigh MD have personally reviewed and interpreted this examination/study. > Interpreting Provider: Terry De Leon MD on 01/14/2022 2:50 PM Procedure Note Tosha De Leon MD - 01/14/2022 PROCEDURE: XR CHEST 2VW, DATE/TIME OF EXAM: 01/14/2022 10:12 AM,LOCATION [facility] INDICATION: Z01.818: Pre-transplant evaluation for kidney [...] hyperostosis. Report dictated by Ruddy Trivedi MD (head resident). ITerry MD have personally reviewed and interpreted this examination/study. > Interpreting Provider: Terry De Leon MD on 01/14/2022 2:50 PM Marbin Flores MD DIAGNOSTIC IMAGING O RDERABLES * (ABNORMAL) URINALYSIS COMPLETE W MICROSCOPIC (01/14/2022 9:59 AM [facility] ARCHITECT) Only the most recent of2 resultswithin the time period is included. Color UA Straw Straw, Yellow 01/14/2022 11:31 AM [facility] Clarity UA Clear Clear 01/14/2022 11:31 AM [facility] Specific [place] UA 1.025 1.005 - 1.030 01/14/2022 11:31 AM [facility] pH UA 7.0 5.0 - 8.0 pH 01/14/2022 11:31 AM [facility] Protein UA 3+(A) Negative 01/14/2022 11:31 AM [facility] Glucose UA Trace(A) Negative 01/14/2022 11:31 AM [facility] Ketone UA Negative Negative 01/14/2022 11:31 AM [facility] Bilirubin UA Negative Negative 01/14/2022 11:31 AM [facility] Blood UA 1+(A) Negative 01/14/2022 11:31 AM [facility] Nitrite UA Negative Negative 01/14/2022 11:31 AM [facility] Leukocyte Esterase Negative Negative 01/14/2022 11:31 AM [facility] Urobilinogen UA Negative Negative mg/dL 01/14/2022 11:31 AM [facility] RBC UA 6-10(A) None Seen, 0-2, 3-5 /HPF 01/14/2022 11:31 AM [facility] WBC UA 0-5 None Seen, 0-5 /HPF 01/14/2022 11:31 AM [facility] Bacteria UA Trace(A) None /HPF 01/14/2022 11:31 AM [facility] Squamous Epithelial Cells UA 0-2 None Seen, 0-2, 3-5 /HPF 01/14/2022 11:31 AM [facility] Mucus UA 1+ /LPF 01/14/2022 11:31 AM [facility] Hyaline Casts UA 0-2 None Seen, 0-2 /LPF 01/14/2022 11:31 AM [facility] Urine URINE SPECIMEN OBTAINED BY CLEAN CATCH PROCEDURE / Unknown Collection / Unknown 01/14/2022 9:59 AM [facility] ARCHIT[facility] 01/14/2022 10:47 AM BI [facility] ARCHITECT Narrative [facility] - 01/14/2022 11:31 AM BI SOLUTIONS ARCHITECT Marbin Flores MD LAB - URINALYSIS ORD ERABLES Performing Organization Address City/[facility]/ZIP Co de Phone Number [address] [address], [place] [phone] * PROTEIN URINE RANDOM QUANTITATIVE (01/14/2022 9:59 AM BI [facility] ARCHITECT) Only the most recent of2 resultswithin the time period is included. Protein Urine 365 Not Established mg/dL 01/14/2022 11:47 AM [facility] Comment:Result obtained by seema christianson. Urine URINE SPECIMEN OBTAINED BY CLEAN CATCH PROCEDURE / Unknown Collection / Unknown 01/14/2022 9:59 AM [facility] ARCHITECT 01/14/2022 10:47 AM BI SOL[facility] ARCHITECT Marbin Flores MD LAB - URINE CHEMISTR Y ORDERABLES Performing Organization Address City/[facility]/ZIP Co de Phone Number [address] [address], [place] [phone] * CREATININE URINE RANDOM (01/14/2022 9:59 AM BI [facility] ARCHITECT) Only the most recent of2 resultswithin the time period is included. Creatinine Urine 81 Not Established mg/dL 01/14/2022 11:20 AM BI SOLUTIONS ARCHITECT [facility] Urine URINE SPECIMEN OBTAINED BY CLEAN CATCH PROCEDURE / Unknown Collection / Unknown 01/14/2022 9:59 AM BI [facility] ARCHITECT 01/14/2022 10:47 AM BI [facility] ARCHITECT Marbin Flores MD LAB - URINE CHEMISTR Y ORDERABLES Performing Organization Address City/[facility]/ZIP Co de Phone Number [address] [address], [facility] [phone] * CANNABINOID SCREEN BLOOD (01/14/2022 9:54 AM BI [facility] ARCHITECT) Only the most recent of2 resultswithin the time period is included. Marijuana Metabolites Negative 01/19/2022 8:07 PM BI SOLUTIONS ARCHITECT [facility] ([facility]) Comment:REFERENCE RANGE: thr shold: 5 ng/mL Specimen Type Comment 01/19/2022 8:07 PM BI SOLUTIONS ARCHITECT [facility] ([facility]) Comment: WHOLE BLOOD This specimen was [...] Lab Venipuncture / Unknown 01/14/2022 9:54 AM [facility] ARCHITECT 01/14/2022 10:49 AM BI [facility] ARCHITECT Narrative [facility] ([facility]) - 01/19/2022 8:07 PM BI SOL[facility]IONS ARCHITECT Performed at: 01 - [facility] [address] [place] [id number] Uat Tester: Ev Camarena [facility], Phone: [phone] Marbin Flores MD LAB - CHEMISTRY ORDE RABLES [facility] ([facility]) [address] [place], [place] [id number] * COCAINE METABOLITE QUANT (01/14/2022 9:54 AM BI [facility] ARCHITECT) Only the most recent of2 resultswithin the time period is included. Pathologist [facility] Cocaine and Metabolite Blood <20 ng/mL 01/18/2022 12:32 AM BI SOLUTIONS ARCHITECT [facility] ([facility]) Comment: INTERPRETIVE INFORMATION: Cocaine Metabolite, Serum [...] developed and its performance characteristics determined by [employer]. It has not been cleared or approved by the US Food and Drug Administration. This test was performed in a CLIA certified laboratory and is intended for clinical purposes. Performed By: [facility] [employer] [address] [place] [address] Vehicle Cost Engineer: Mk Egan MD, PhD Blood BLOOD SPECIMEN / Unknown Lab Venipuncture / Unknown 01/14/2022 9:54 AM [facility] ARCHITECT 01/14/2022 10:48 AM BI [employer] ARCHITECT Marbin Flores MD LAB - CHEMISTRY PK ZENG [facility] Organization Address City/State/ZIP Co de Phone Number [facility] [employer] ([facility]) [address] [place] [address] * SYPHILIS ANTIBODY CASCADING REFLEX (01/14/2022 9:54 AM BI SOL[employer]IONS ARCHITECT) Only the most recent of2 resultswithin the time period is included. Pathologist [facility] Treponema pallidum Antibody Non-react sylvie Non-react sylvie 01/14/2022 11:52 AM BI SOLUTIONS ARCHITECT [facility] Comment: No Laboratory evidence of syphilis infection. Note: Circulating antibodies may be low or undetectable in early infection. If recent exposure is suspected, re-draw sample in 2-4 weeks and repeat testing. Blood BLOOD SPECIMEN / Unknown Lab Venipuncture / Unknown 01/14/2022 9:54 AM [facility] ARCHITECT 01/14/2022 10:48 AM BI [employer] ARCHITECT Marbin Flores MD LAB - SEROLOGY ORDER MICHELLE [facility] [address] [place] [address], [facility] [phone] * AMPHETAMINE BLOOD CONFIRMATION (01/14/2022 9:54 AM BI SOL[facility]IONS ARCHITECT) Only the most recent of2 resultswithin the time period is included. Amphetamines Confirmation <20 ng/mL 2022 12:55 AM BI SOLUTIONS ARCHITECT [employer] ([facility]) Comment: INTERPRETIVE INFORMATION: Amphetamines, Serum or [...] developed and its performance characteristics determined by [employer]. It has not been cleared or approved by the US Food and Drug Administration. This test was performed in a CLIA certified laboratory and is intended for clinical purposes. Methamphetamine Confirmation <20 ng/mL 2022 12:55 AM [facility] [employer] [facility]) MDA Confirmation <20 ng/mL 01/21/20 22 12:55 AM [facility] [employer] [facility]) MDMA Confirm <20 ng/mL 2022 12:55 AM BI SOL[facility]IONS ARCHITECT [employer] [facility]) MDEA Confirmation <20 ng/mL 022 12:55 AM BI SOLUTIONS ARCHITECT [employer] [facility]) Comment: Performed By: [facility] [address] [place] [address] Vehicle Cost Engineer: Mk Egan MD, PhD Blood BLOOD SPECIMEN / Unknown Lab Venipuncture / Unknown 01/14/2022 9:54 AM [facility] ARCHITECT 01/14/2022 10:48 AM [facility] ARCHITECT Marbin Flores MD LAB - CHEMISTRY [facility]DE [facility] [employer] [facility]) [address] [place] [address], [facility] * QUANTIFERON-TB GOLD PLUS 4-TUBE (01/14/2022 9:54 AM [facility] ARCHITECT) Only the most recent of2 resultswithin the time period is included. QuantiFERON NIL 0.02 IU/mL 1:41 AM BI SOL[facility]IONS ARCHITECT [employer] [facility]) Comment: Performed By: [employer] [address] [place] [address] Vehicle Cost Engineer: Mk Egan MD, PhD QuantiFERON TB Gold Plus Negative Negative 01/17/2022 1:41 AM BI SOL[employer]IONS ARCHITECT [employer] ([facility]) Comment: Interpretive Data: Quantiferon TB Gold [...] Mycobacterium tuberculosis Infection --- [place], 2010 (http://www.cdc.gov/mmwr/preview/mmwrhtml/ak3582c1.htm), for more information concerning test performance in low-prevalence populations and use in occupational screening. QuantiFERON Plus TB1 Minus NIL 0.00 0.00 - 0.34 IU/mL 01/17/2022 1:41 AM BI SOLUTIONS ARCHITECT [employer] ([facility]) QuantiFERON Plus TB2 Minus NIL 0.01 0.00 - 0.34 IU/mL 01/17/2022 1:41 AM BI SOLUTIONS ARCHITECT [employer] ([facility]) Quanti[employer]ON [employer]ogen Minus NIL >10.00 IU/mL 01/17/2022 1:41 AM BI SOLUTIONS ARCHITECT [facility] ([facility]) Blood BLOOD SPECIMEN / Unknown Lab Venipuncture / Unknown 01/14/2022 9:54 AM [facility] ARCHITECT 01/14/2022 10:49 AM [facility] ARCHITECT Marbin Flores MD LAB - CHEMISTRY PK ZENG [facility]) [address] * (ABNORMAL) PTH INTACT ([facility]) (01/14/2022 9:54 AM BI SOLUTIONS ARCHITECT) Only the most recent of2 resultswithin the time period is included. Pathologist [facility] PTH Intact 266.9(H) 8.0 - 77.0 pg/mL 01/14/2022 11:37 AM [employer] SOL[employer] ARCHITECT [facility] Blood BLOOD SPECIMEN / Unknown Lab Venipuncture / Unknown 01/14/2022 9:54 AM [employer] ARCHITECT 01/14/2022 11:00 AM [employer] ARCHITECT Marbin Flores MD LAB - CHEMISTRY PK ZENG Performing Organization Address [facility]/ZIP Co de Phone Number [address] [address], [facility] [phone] * HIV-1 HIV-2 ANTIBODY + HIV P24 AG PANEL (01/14/2022 9:54 AM [employer] ARCHITECT) Pathologist [facility] HIV Antigen/Antibod y 1 & 2 Non-reacti ve Non-react sylvie 01/14/2022 11:52 AM [employer] ARCHITECT [facility] Comment:No Laboratory eviden ce of HIV infection. Blood BLOOD SPECIMEN / Unknown Lab Venipuncture / Unknown 01/14/2022 9:54 AM [employer] ARCHITECT 01/14/2022 10:48 AM BI SOLUTIONS ARCHITECT Marbin Flores MD LAB - CHEMISTRY PK ZENG Performing Organization Address City/[facility]/ZIP Co de Phone Number [address] [address] [phone] * OPIATES BLOOD (01/14/2022 9:54 AM BI SOL[employer] ARCHITECT) Only the most recent of2 resultswithin the time period is included. Pathologist [facility] Opiates Screen Negative 01/19/2022 8:07 PM [facility] ([facility]) Comment:REFERENCE RANGE: thr shold: 10 ng/mL Oxycodone Screen Negative 01/20/20 8:07 PM BI SOLUTIONS ARCHITECT [facility] ([facility]) Comment:REFERENCE RANGE: thr shold: 10 ng/mL Specimen Type Comment 01/19/2022 8:07 PM [employer] SOL[employer] ARCHITECT [facility] ([facility]) Comment: WHOLE BLOOD This specimen was [...] Lab Venipuncture / Unknown 01/14/2022 9:54 AM [employer] ARCHITECT 01/14/2022 10:49 AM BI SOL[employer] ARCHITECT Narrative [facility] ([facility]) - 01/19/2022 8:07 PM BI SOL[employer]IONS ARCHITECT Performed at: [facility] [employer] [address] [id number] Uat Tester: Ev Camarena [facility], Phone: [phone] Marbin Flores MD LAB - CHEMISTRY PK ZENG [facility] Organization Address City/State/ZIP Co de Phone Number [facility]) [address] [place] [address] * URIC ACID BLOOD (01/14/2022 9:54 AM BI SOL[employer] ARCHITECT) Only the most recent of2 resultswithin the time period is included. [facility] Uric Acid 7.0 3.5 - 7.2 mg/dL 01/14/2022 11:38 AM [employer] SOL[employer] ARCHITECT [facility] Blood BLOOD SPECIMEN / Unknown Lab Venipuncture / Unknown 01/14/2022 9:54 AM [employer] ARCHITECT 01/14/2022 11:00 AM [employer] ARCHITECT Marbin Flores MD LAB - CHEMISTRY ORDE AZUCENA Performing Organization Address [facility] Co de Phone Number [place] [phone], [facility] [phone] * STRONGYLOIDES ANTIBODY IGG (01/14/2022 9:54 AM BI SOL[employer] ARCHITECT) Only the most recent of2 resultswithin the time period is included. Strongyloides Antibody IgG 0.1 <=0.9 IV 01/16/2022 1:02 AM BI SOLUTIONS ARCHITECT [employer] ([facility]) Comment: INTERPRETIVE INFORMATION: Strongyloides Ab, IgG [...] also result in false-positive results. Performed By: [employer] [address] [place] [address] Vehicle Cost Engineer: Mk Egan MD, PhD Blood BLOOD SPECIMEN / Unknown Lab Venipuncture / Unknown 01/14/2022 9:54 AM [employer] ARCHITECT 01/14/2022 10:48 AM [employer] ARCHITECT Marbin Flores MD LAB - SEROLOGY ORDER MICHELLE [employer] ([facility]) [address] * CYTOMEGALOVIRUS ANTIBODY IGG BLOOD (01/14/2022 9:54 AM BI SOL[employer] ARCHITECT) Only the most recent of2 resultswithin the time period is included. Cytomegalovirus Antibody IgG <0.20 U/mL 01/15/2022 4:12 PM [employer] SOL[employer] ARCHITECT [employer] ([facility]) Comment: INTERPRETIVE INFORMATION: Cytomegalovirus Antibody, IgG [...] laboratory at the same time. Performed By: [employer] [address] [place] [address] Vehicle Cost Engineer: Mk Egan MD, PhD Blood BLOOD SPECIMEN / Unknown Lab Venipuncture / Unknown 01/14/2022 9:54 AM [employer] ARCHITECT 01/14/2022 10:48 AM [employer] ARCHITECT Marbin Flores MD LAB - CHEMISTRY PK ZENG Performing Organization Address City/[facility]/ZIP Co de Phone Number [facility] ([facility]) [address] [place] [address], [facility] * TRANSFERRIN (01/14/2022 9:54 AM BI SOL[employer] ARCHITECT) Only the most recent of2 resultswithin the time period is included. Transferrin 176 174 - 382 mg/dL 01/14/2022 11:36 AM [employer] SOL[employer] ARCHITECT [facility] Blood BLOOD SPECIMEN / Unknown Lab Venipuncture / Unknown 01/14/2022 9:54 AM [employer] ARCHITECT 01/14/2022 10:48 AM [employer] ARCHITECT Marbin Flores MD LAB - CHEMISTRY PK ZENG [address] [address] [phone] * TOXOPLASMA GONDII ANTIBODY IGG (01/14/2022 9:54 AM [employer] ARCHITECT) Only the most recent of2 resultswithin the time period is included. Toxoplasma Antibody IgG <3.0 IU/mL 01/15/2022 4:23 PM BI SOL[employer] ARCHITECT [facility] ([facility]) Comment: INTERPRETIVE INFORMATION: Toxoplasma Ab, IgG [...] the amount of antibody present. Performed By: [facility] [address] [place] [address] Vehicle Cost Engineer: Mk Egan MD, PhD Blood BLOOD SPECIMEN / Unknown Lab Venipuncture / Unknown 01/14/2022 9:54 AM [employer] ARCHITECT 01/14/2022 10:48 AM BI SOL[employer]IONS ARCHITECT Marbin Flores MD LAB - CHEMISTRY PK ZENG [facility] Organization Address City/State/[facility] Co de Phone Number [facility] [employer] [facility]) [address] * (ABNORMAL) HEMOGLOBIN A1C (01/14/2022 9:54 AM BI SOL[employer]IONS ARCHITECT) Only the most recent of2 resultswithin the time period is included. Hemoglobin A1c 8.7(H) <=5.6 % 01/14/2022 1:10 PM BI SOL[employer]IONS ARCHITECT [facility] Estimated Average Glucose 203 mg/dL 01/14/2022 1:10 PM BI SOL[employer]IONS ARCHITECT [facility] Comment: HbA1c Interpretation: Normal : < 5.7% Pre-diabetes: 5.7-6.4% Diabetes: Equal to or greater than 6.5% Test results diagnostic of diabetes should be repeated for confirmation. Treatment target values recommended by ADA and other clinical organizations should be used to evaluate metabolic control in patients. Reference: [place] [employer], Standards of Care in Diabetes -2020 In patients 70 years and older consider HbA1c target range of 7.0-7.5% (Reference: [employer] et al. GREGORYDA. 2012) The Sebia assay for the measurement of HbA1c is a National Glycohemoglobin Standardization Program (NGSP) certified method. Blood BLOOD SPECIMEN / Unknown Lab Venipuncture / Unknown 01/14/2022 9:54 AM [employer] ARCHITECT 01/14/2022 11:00 AM BI SOL[employer] ARCHITECT Marbin Flores MD LAB - CHEMISTRY PK ZENG Performing Organization Address City/[facility]/ZIP Co de Phone Number [address] [address], [facility] [phone] * VITAMIN D 25-HYDROXY (01/14/2022 9:54 AM BI SOL[employer]IONS ARCHITECT) Only the most recent of2 resultswithin the time period is included. Pathologist [facility] Vitamin D, 25 Hydroxy 39.0 30.0 - 80.0 ng/mL 01/14/2022 11:47 AM BI SOL[employer]IONS ARCHITECT [facility] Comment: The recommendations for 25-Hydroxy Vitamin [...] Lab Venipuncture / Unknown 01/14/2022 9:54 AM [employer] ARCHITECT 01/14/2022 11:00 AM BI SOL[employer]IONS ARCHITECT Marbin Flores MD LAB - CHEMISTRY PK ZENG [address] [address] [phone] * NICOTINE + METABOLITES BLOOD (01/14/2022 9:54 AM BI SOL[employer]IONS ARCHITECT) Only the most recent of2 resultswithin the time period is included. [facility] Nicotine <5 ng/mL 01/17/2022 2:23 PM BI SOLUTIONS ARCHITECT [employer] ([facility]) Comment: Consistent with abstinence from nicotine-containing [...] developed and its performance characteristics determined by [employer]. It has not been cleared or approved by the US Food and Drug Administration. This test was performed in a CLIA certified laboratory and is intended for clinical purposes. Performed By: [employer] [address] [place] [address] Vehicle Cost Engineer: Mk Egan MD, PhD Cotinine <5 ng/mL 01/17/2022 2:23 PM BI SOLUTIONS ARCHITECT [employer] [facility]) Blood BLOOD SPECIMEN / Unknown Lab Venipuncture / Unknown 01/14/2022 9:54 AM BI [employer]IONS ARCHITECT 01/14/2022 10:48 AM BI SOLUTIONS ARCHITECT Marbin Flores MD LAB - CHEMISTRY PK ZENG [facility] [employer] [facility]) [address] * (ABNORMAL) CBC W AUTO DIFFERENTIAL (01/14/2022 9:54 AM BI SOLUTIONS ARCHITECT) Only the most recent of4 resultswithin the time period is included. WBC 7.4 3.5 - 10.5 10 3/uL 01/14/2022 11:33 AM [facility] RBC 3.19(L) 4.30 - 5.70 10 6/uL 01/14/2022 11:33 AM [facility] Hemoglobin 9.7(L) 12.0 - 17.6 g/dL 01/14/2022 11:33 AM [facility] Hematocrit 28.9(L) 35.2 - 51.7 % 01/14/2022 11:33 AM [facility] MCV 90.6 80.7 - 98.3 fL 01/14/2022 11:33 AM [facility] MCH 30.4 26.7 - 34.0 pg 01/14/2022 11:33 AM [facility] MCHC 33.6 30.8 - 35.9 g/dL 01/14/2022 11:33 AM [facility] RDW-SD 47.2 36.0 - 50.0 fL 01/14/2022 11:33 AM [facility] RDW-CV 14.2 11.2 - 14.8 % 01/14/2022 11:33 AM [facility] Platelet Count 148(L) 150 - 400 10 3/uL 01/14/2022 11:33 AM [facility] MPV 11.7 9.4 - 12.9 fL 01/14/2022 11:33 AM [facility] nRBC Absolute 0.00 0 10 3/uL 01/14/2022 11:33 AM [facility] nRBC Auto 0.0 0 /100 WBC 01/14/2022 11:33 AM [facility] Neutrophils % 75.4(H) 35.0 - 70.0 % 01/14/2022 11:33 AM [facility] Lymphocytes % 11.6(L) 20.0 - 43.0 % 01/14/2022 11:33 AM [facility] Monocytes % 10.6 5.0 - 13.0 % 01/14/2022 11:33 AM [facility] Eosinophils % 0.1 0.0 - 6.0 % 01/14/2022 11:33 AM [facility] Basophil % 0.1 0.0 - 2.0 % 01/14/2022 11:33 AM [facility] Neutrophils Absolute 5.61 1.60 - 7.00 10 3/uL 01/14/2022 11:33 AM [facility] Lymphocyte Absolute 0.86(L) 1.10 - 3.90 10 3/uL 01/14/2022 11:33 AM [facility] Monocytes Absolute 0.79 0.26 - 1.07 10 3/uL 01/14/2022 11:33 AM [facility] Eosinophils Absolute 0.01 0.00 - 0.47 10 3/uL 01/14/2022 11:33 AM [facility] Basophils Absolute 0.01 0.00 - 0.08 10 3/uL 01/14/2022 11:33 AM [facility] Immature Granulocytes % 2.2(H) 0.0 - 1.0 % 01/14/2022 11:33 AM [facility] Immature Granulocytes Absolute 0.16 01/14/2022 11:33 AM [facility] Blood BLOOD SPECIMEN / Unknown Lab Venipuncture / Unknown 01/14/2022 9:54 AM BI [employer] ARCHITECT 01/14/2022 11:00 AM [facility] Marbin Flores MD LAB - HEMATOLOGY ORD ERABLES [facility] [address] [place] [phone], [facility] [phone] * (ABNORMAL) COMPREHENSIVE METABOLIC PANEL (01/14/2022 9:54 AM [facility]) Only the most recent of2 resultswithin the time period is included. BUN 27(H) 7 - 26 mg/dL 01/14/2022 11:38 AM [facility] Creatinine 5.60(H) 0.71 - 1.16 mg/dL 01/14/2022 11:38 AM [facility] Sodium 142 136 - 145 mmol/L 01/14/2022 11:38 AM [facility] Potassium 3.6 3.5 - 4.5 mmol/L 01/14/2022 11:38 AM [facility] Chloride 100 98 - 107 mmol/L 01/14/2022 11:38 AM [facility] CO2 24 22 - 29 mmol/L 01/14/2022 11:38 AM [facility] Glucose 217(H) 70 - 115 mg/dL 01/14/2022 11:38 AM [facility] Calcium 8.3(L) 8.4 - 10.2 mg/dL 01/14/2022 11:38 AM [facility] Protein Total 6.8 6.0 - 8.3 g/dL 01/14/2022 11:38 AM [facility] Albumin 3.1(L) 3.4 - 5.0 g/dL 01/14/2022 11:38 AM [facility] Bilirubin Total 0.6 0.2 - 1.2 mg/dL 01/14/2022 11:38 AM [facility] Alkaline Phosphatase 98 40 - 150 U/L 01/14/2022 11:38 AM [facility] ALT 19 5 - 55 U/L 01/14/2022 11:38 AM [facility] AST 17 5 - 34 U/L 01/14/2022 11:38 AM [facility] Anion Gap 22(H) 8 - 18 01/14/2022 11:38 AM [facility] BUN/Creatinine Ratio 5(L) 7 - 23 01/14/2022 11:38 AM [facility] Osmolality Calculated 306(H) 270 - 300 mOsm/kg 01/14/2022 11:38 AM [facility] Albumin/Globulin Ratio 0.8(L) 1.1 - 2.3 01/14/2022 11:38 AM [facility] eGFR by CKD-EPI 11(L) >=90 mL/min/1.7 3 m2 01/14/2022 11:38 AM [facility] Blood BLOOD SPECIMEN / Unknown Lab Venipuncture / Unknown 01/14/2022 9:54 AM [employer] ARCHITECT 01/14/2022 11:00 AM [facility] Marbin Flores MD LAB - CHEMISTRY PK ZENG [facility] Organization Address City/State/ZIP Co de Phone Number [address] [address], [facility] [phone] * PROSTATE SPECIFIC ANTIGEN SCREEN (01/14/2022 9:54 AM [employer] ARCHITECT) Only the most recent of2 resultswithin the time period is included. PSA Total 3.3 0.0 - 4.0 ng/mL 01/14/2022 11:54 AM BI SOL[employer]IONS ARCHITECT [facility] Blood BLOOD SPECIMEN / Unknown Lab Venipuncture / Unknown 01/14/2022 9:54 AM [employer] ARCHITECT 01/14/2022 11:00 AM [employer] ARCHIT[employer] Marbin Flores MD LAB - CHEMISTRY PK ZENG [address] [address], [facility] [phone] * (ABNORMAL) PHOSPHORUS BLOOD (01/14/2022 9:54 AM BI [employer] ARCHITECT) Only the most recent of2 resultswithin the time period is included. Phosphorus 5.4(H) 2.8 - 5.1 mg/dL 01/14/2022 11:38 AM [employer] ARCHITECT [facility] Blood BLOOD SPECIMEN / Unknown Lab Venipuncture / Unknown 01/14/2022 9:54 AM BI [employer] ARCHITECT 01/14/2022 11:00 AM BI SOL[employer] ARCHITECT Marbin Flores MD LAB - CHEMISTRY PK ZENG [address] [address], [facility] [phone] * IRON BLOOD (01/14/2022 9:54 AM BI SOL[employer]IONS ARCHITECT) Only the most recent of2 resultswithin the time period is included. Iron 62 50 - 175 ug/dL 01/14/2022 11:36 AM BI SOL[employer] ARCHITECT [facility] Blood BLOOD SPECIMEN / Unknown Lab Venipuncture / Unknown 01/14/2022 9:54 AM [employer] ARCHITECT 01/14/2022 10:48 AM [employer] ARCHITECT Marbin Flores MD LAB - CHEMISTRY ORDLien ALEJOADELFO Performing Organization Address City/[facility]/ZIP Co de Phone Number [address] [address], [facility] [phone] * LDL CHOLESTEROL DIRECT (01/14/2022 9:54 AM BI [employer] ARCHITECT) Only the most recent of3 resultswithin the time period is included. LDL Direct 46 <100 mg/dL 01/14/2022 11:57 AM [facility] Comment: ATP III Classification of LDL Cholesterol: <100 mg/dL: Optimal 100 - 129 mg/dL: Near Optimal/Above Optimal 130 - 159 mg/dL: Borderline High 160 - 189 mg/dL: High >190 mg/dL: Very High Blood BLOOD SPECIMEN / Unknown Lab Venipuncture / Unknown 01/14/2022 9:54 AM [employer] ARCHITECT 01/14/2022 11:00 AM [employer] ARCHIT[employer] Marbin Flores MD LAB - CHEMISTRY PK ZENG Performing Organization Address City/[facility]/ZIP Co de Phone Number [address] [address], [facility] [phone] * HEPATITIS B SURFACE ANTIBODY (01/14/2022 9:54 AM BI [employer] ARCHITECT) Only the most recent of2 resultswithin the time period is included. Hepatitis B Virus Surface Antibody Non-react sylvie Non-react sylvie 01/14/2022 11:52 AM [facility] Comment: < 8 mIU/mL Hepatitis B surface Antibody (HBsAb). Nonreactive for HBsAb - individual is considered not immune to Hepatitis B Virus infection. Hepatitis B Surface Antibody Quantitative 1.2 <8.0 mIU/mL 01/14/2022 11:52 AM [facility] Comment: Hepatitis B Surface Antibody Numeric Result Interpretation: Nonreactive: <8.0 mIU/mL Indeterminate: 8.0 - 12.0 mIU/mL Reactive: >12.0 mIU/mL Blood BLOOD SPECIMEN / Unknown Lab Venipuncture / Unknown 01/14/2022 9:54 AM [employer]CHIT[employer] 01/14/2022 10:48 AM [employer]CHIT[employer] Marbin Flores MD LAB - CHEMISTRY PK ZENG Performing Organization Address City/[facility]/ZIP Co de Phone Number [address] [address], [facility] [phone] * HEPATITIS B CORE ANTIBODY (01/14/2022 9:54 AM [employer] ARCHITECT) Only the most recent of2 resultswithin the time period is included. Pathologist [facility] HBc Antibody Total Non-reacti ve Non-reacti ve 01/14/2022 11:52 AM BI SOLUTIONS ARCHITECT [facility] Blood BLOOD SPECIMEN / Unknown Lab Venipuncture / Unknown 01/14/2022 9:54 AM [employer] ARCHITECT 01/14/2022 10:48 AM [employer] ARCHITECT Marbin Flores MD LAB - CHEMISTRY PK ZENG Performing Organization Address [facility] Co de Phone Number [address] [address], [place] [phone] * HEPATITIS B SURFACE ANTIGEN W RFLX CONFIRMATION (01/14/2022 9:54 AM [employer] ARCHITECT) Only the most recent of2 resultswithin the time period is included. [facility] Hepatitis B Virus Surface Antigen Non-reacti ve Non-reacti ve 01/14/2022 11:52 AM BI SOLUTIONS ARCHITECT [facility] Blood BLOOD SPECIMEN / Unknown Lab Venipuncture / Unknown 01/14/2022 9:54 AM [employer] ARCHITECT 01/14/2022 10:48 AM [employer] ARCHITECT Marbin Flores MD LAB - CHEMISTRY PK ZENG Performing Organization Address City/[facility]/ZIP Co de Phone Number [address] [address], [place] [phone] * ALCOHOL ETHYL BLOOD (01/14/2022 9:54 AM [employer] ARCHITECT) Only the most recent of2 resultswithin the time period is included. [facility] Ethanol (mg/dL) <10 <=10 mg/dL 11/28/202 2 11:38 AM [facility] Ethanol Calculated (g/dL) <0.010 <0.010 g/dL 01/14/2022 11:38 AM [facility] Blood BLOOD SPECIMEN / Unknown Lab Venipuncture / Unknown 01/14/2022 9:54 AM [employer] ARCHIT[employer] 01/14/2022 11:00 AM BI [employer] ARCHITECT Narrative [facility] - 01/14/2022 11:38 AM [employer] ARCHITECT Ethanol Interp <10: None Detected. Depression of MAXILLOFACIAL PROSTHETICS DENTIST: >100 mg/dl Potentially Critical: >250 mg/dl Potentially [...] - CHEMISTRY PK ZENG Performing Organization Address City/[facility]/ZIP Co de Phone Number [address] [address], [place] [phone] * HEPATITIS C ANTIBODY (01/14/2022 9:54 AM [employer] ARCHIT[employer]) Only the most recent of2 resultswithin the time period is included. Hepatitis C Antibody Non-react sylvie Non-reac tive 01/14/2022 11:52 AM [facility] Comment:Hepatitis C Antibody screen indicates no serologic evidence of past or current infection with Hepatitis C Virus. Patients with unexplained liver disease who are immunocompromised or suspected of having acute Hepatitis C infection may benefit from Nucleic Acid Test (MARLON) for Hepatitis C Viral RNA to confirm Hepatitis C status. Blood BLOOD SPECIMEN / Unknown Lab Venipuncture / Unknown 01/14/2022 9:54 AM [employer] ARCHIT[employer] 01/14/2022 10:48 AM [employer]CH[employer] Marbin Flores MD LAB - CHEMISTRY PK ZENG Performing Organization Address City/[facility]/ZIP Co de Phone Number [address] [address], [facility] [phone] * HEPATITIS A ANTIBODY (01/14/2022 9:54 AM [employer] ARCHITECT) Only the most recent of2 resultswithin the time period is included. Pathologist [facility] Hepatitis A Virus Antibody Total Negative Negative 01/15/2022 1:38 PM BI SOLUTIONS ARCHITECT [employer] ([facility]) Comment: Performed by [employer], [address] [place] [id number] [email or web address], Mk Egan MD, PHD, Lab. Director Blood BLOOD SPECIMEN / Unknown Lab Venipuncture / Unknown 01/14/2022 9:54 AM [employer] ARCHIT[employer] 01/14/2022 10:48 AM [employer]CH[employer] Marbin Flores MD LAB - CHEMISTRY PK ZENG Performing Organization Address City/[facility]/ZIP Co de Phone Number [facility]) [address] [place] [id number] * (ABNORMAL) FERRITIN (01/14/2022 9:54 AM BI [employer] ARCHITECT) Only the most recent of2 resultswithin the time period is included. [facility] Ferritin 847(H) 22 - 275 ng/mL 01/14/2022 11:52 AM [employer] ARCHITECT [facility] Blood BLOOD SPECIMEN / Unknown Lab Venipuncture / Unknown 01/14/2022 9:54 AM [employer] ARCHITECT 01/14/2022 10:48 AM [employer] ARCHITECT Marbin Flores MD LAB - CHEMISTRY PK ZENG [facility] [address] [place] [phone], [facility] [phone] * (ABNORMAL) LIPID PROFILE (01/14/2022 9:54 AM [employer] ARCHITECT) Only the most recent of3 resultswithin the time period is included. [facility] Cholesterol Total 173 <200 mg/dL 01/14/2022 11:38 AM BI SOL[employer]IONS ARCHITECT [facility] HDL 21(L) >40 mg/dL 01/14/2022 11:38 AM BI [employer] ARCHITECT [facility] Comment: ATP III Classification of HDL Cholesterol: <40 mg/dL: Considered a major risk factor. >60 mg/dL: Considered a negative risk factor. LDL Calculated 01/14/2022 11:38 AM [facility] Comment:Calculation of LDL v alue was not performed because triglyceride concentrations greater than 400 mg/dL render the calculated value invalid. For this reason, the LDL Direct assay for measurement of LDL Cholesterol has been performed (per laboratory protocol). Triglycerides 706(H) <150 mg/dL 01/14/2022 11:38 AM [facility] Comment: ATP III Classification of Triglycerides: <150 mg/dL: Normal 150 - 199 mg/dL: Borderline High 200 - 400 mg/dL: High >500 mg/dL: Very High Blood BLOOD SPECIMEN / Unknown Lab Venipuncture / Unknown 01/14/2022 9:54 AM [employer] ARCH[employer] 01/14/2022 11:00 AM [employer] ARCHITECT Marbin Flores MD LAB - CHEMISTRY PK ZENG [facility] Organization Address City/State/[facility] Co de Phone Number [address] [address], [facility] [phone] * ECHO COMPLETE (11/07/2021 11:30 AM CDT) [...] Alexey Sellers M.D. Vascular and Interventional Radiology [facility] [phone] CC: Patient's building inspector: Dr. Alan Mccall Dialysis unit: [facility] Alan Mccall MD IR ORDERABLES * IR CENTRAL LINE INSERT TUNNEL (04/04/2021 10:31 AM [employer] ARCHITECT) Only the most recent of2 resultswithin the time period is included. Anatomical Region Laterality Modality Chest, Upper Extremity X-Ray Ang iography Narrative 04/04/2021 10:20 AM [employer] ARCHITECT Santiago Sellers MD 04/04/2021 10:21 AM VASCULAR [...] completed, removal can be scheduled by calling [facility] at [phone]. Alexey Sellers M.D. Vascular and Interventional Radiology [facility] [phone] CC: Patient's building inspector: Dr. Alan Mccall Dialysis unit: [facility] Alan Mccall MD IR ORDERABLES * (ABNORMAL) RENAL FUNCTION PANEL (09/07/2020 12:00 PM CDT) Glucose 168(H) 70 - 105 mg/dL 09/07/2020 1:34 PM CDT [facility] Sodium 139 136 - 145 mmol/L 09/07/2020 1:34 PM CDT [facility] Potassium 3.5 3.5 - 5.1 mmol/L 09/07/2020 1:34 PM CDT [facility] Chloride 98 98 - 107 mmol/L 09/07/2020 1:34 PM CDT [facility] CO2 27 23 - 31 mmol/L 09/07/2020 1:34 PM CDT [facility] Calcium 8.1(L) 8.4 - 10.4 mg/dL 09/07/2020 1:34 PM CDT [facility] Anion Gap 14 8 - 18 mmol/L 09/07/2020 1:34 PM CDT [facility] BUN 32(H) 8.4 - 25.7 mg/dL 09/07/2020 1:34 PM CDT [facility] Creatinine 5.32(H) 0.72 - 1.25 mg/dL 09/07/2020 1:34 PM CDT [facility] Albumin 2.8(L) 3.2 - 4.6 gm/dL 09/07/2020 1:34 PM CDT [facility] Phosphorus 4.0 2.3 - 4.7 mg/dL 09/07/2020 1:34 PM CDT [facility] eGFR by MDRD 11(L) >60 mL/min/1.7 3m2 09/07/2020 1:34 PM CDT [facility] eGFR by MDRD 13(L) >60 mL/min/1.7 3m2 09/07/2020 1:34 PM CDT [facility] Blood BLOOD SPECIMEN / Unknown Lab Venipuncture / Unknown 09/07/2020 12:00 PM CDT 09/07/2020 1:05 PM CDT Alan Mccall MD LAB - CHEMISTRY PK ZENG [facility] Organization Address City/State/ZIP Co de Phone Number [facility] [address], [place] [phone] * [place] PERITONEUM (09/06/2020 10:07 AM CDT) Anatomical Region Laterality Modality Abdomen X-Ray Angiograph y Narrative 09/06/2020 11:46 AM Aki Treviño MD 09/06/2020 2:51 PM Kendall Carl [id number] Interventional Nephrology Procedure Date: 09/06/2020 Attending Surgeon [...] PLACEMENT: INJECTION OF AIR/CONTRAST OF PERITONEAL CAVITY; 42208; 53050 Findings: 1. Contrast injection through the catheter [...] laparoscopic. Aki Boles MD 09/06/2020 11:46 AM [facility] 314 - [phone] Christiano Perea MD [facility] Alan Mccall MD FLUOROSCOPY ORDERABL ES * CARDIAC PROCEDURE ORDER (08/07/2020 3:59 PM CDT) Narrative 08/07/2020 3:59 PM CDT Ordered by an unspecified provider. Scanned Document CARDIAC SERVICES ORD ERABLES * CCL CARDIAC CATH LEFT (08/04/2020 11:57 AM CDT) Anatomical Region Laterality Modality Chest X-Ray Angiograph y Narrative 08/16/2020 2:51 PM CDT [facility] Cardiac Catheterization Procedure Note Patient: Kendall Carl Age: [age] year old Date of : 1955 Procedure Date: 08/04/2020 FELLOW / BUILDING SERVICES SUPERVISOR: Jade Russo MD ATTENDING PHYSICIAN: Javier Lan [...] evaluation, please review the evaluation forms in [facility]. For details on monitored clinical parameters during the intra-service sedation time, please review the procedure nurse documentation in [facility] and [facility]. Total sedation administered as [...] Javier Lan MD Eliza Phan MD CARDIAC BLISTER PACK OPERATOR RA DIANT * (ABNORMAL) GLUCOSE - POINT OF CARE (08/04/2020 9:23 AM CDT) Only the most recent of4 resultswithin the time period is included. [facility] Glucose WB/POC 403(H) 70 - 115 mg/dL 08/04/2020 9:27 AM CDT [facility] Specimen Type Venous 08/04/2020 9:27 AM CDT [facility] Blood BLOOD SPECIMEN / Unknown 08/04/2020 9:23 AM CDT 08/04/2020 9:27 AM CDT Eliza Phan MD LAB - POINT OF CARE ORDERABLES [facility] [address] [place] [address], [facility] [phone] * XR CHEST 1VW (08/02/2020 2:31 PM [...] DIAGNOSTIC IMAGING ORDERABLES * CT KIDNEY BIOPSY( 77242 and 55263) (08/02/2020 1:16 PM CDT) Anatomical Region Laterality [...] area in stable condition. Procedure Note Elias Antoyn MD - 08/02/2020 History: 65 yo M [...] CDT) Case Report Surgical Pathology Report Case: [id number] Authorizing Provider: Thomas Mendoza MD Collected: 08/02/2020 12:20 PM Ordering Location: [facility] IVR Received: 08/02/2020 01:42 PM Pathologist: Elinor Phillips MD Specimen: Kidney Mass, Biopsy 08/04/2020 3:00 PM [facility] Final Diagnosis Kidney, left, biopsy (A): - Oncocytic neoplasm, see comment 08/04/2020 3:00 PM [facility] Microscopic Description and Comment Immunostains show tumor cells are positive for CD117 and rare tumor cells are positive for CK7 and BerEP4. 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 Received in formalin, specimen A , are 4 purple-ho soft tissue cores 0.5-1.4 cm in length with diameters of 0.1 cm and a 0.9 x 0.1 x 0.1 cm portion of red-brown blood clot, submitted in toto in cassette A1. AH 08/04/2020 3:00 PM [facility] Disclaimer The performance characteristics of all immunohistochemical and indirect immunofluorescence stains (if any) cited in this report were determined by the Histopathology Laboratory of [facility]. Some of these tests were developed [...] (teaching) pathologist. 08/04/2020 3:00 PM [facility] Embedded Images 08/04/2020 3:00 PM CDT [facility] Pathology/Cytolo gy MASS / Unknown Collection / Unknown 08/02/2020 12:20 PM CDT 08/02/2020 1:42 PM CDT Thomas Mendoza MD LAB - PATHOLOGY/CY TOLOGY ORDERABLES Performing Organization Address [facility]/State/ZIP Co de Phone Number [facility] [address] [id number] [phone] * PT-INR (07/28/2020 8:14 AM CDT) PT 12.8 12.1 - 14.8 sec 07/28/2020 8:41 AM CDT [facility] INR 1.0 0.9 - 1.1 07/28/2020 8:41 AM CDT [facility] Blood BLOOD SPECIMEN / Unknown Lab Venipuncture / Unknown 07/28/2020 8:14 AM CDT 07/28/2020 8:14 AM CDT Narrative [facility] - 07/28/2020 8:41 AM CDT Conventional Warfarin Anticoagulant Therapy: INR Reference Range: 2.0-3.0 Intensive Warfarin Anticoagulant Therapy: INR Reference Range: 2.5-3.5 Eliza Phan MD LAB - COAGULATION O RDERABLES [facility] [address] [place] [address] * (ABNORMAL) BASIC METABOLIC PANEL (CALCIUM TOTAL) (07/28/2020 8:14 AM CDT) Glucose 290(H) 70 - 105 mg/dL 07/28/2020 9:06 AM CDT [facility] Sodium 137 136 - 145 mmol/L 07/28/2020 9:06 AM CDT [facility] Potassium 4.2 3.5 - 5.1 mmol/L 07/28/2020 9:06 AM CDT [facility] Chloride 101 98 - 107 mmol/L 07/28/2020 9:06 AM CDT [facility] CO2 25 23 - 31 mmol/L 07/28/2020 9:06 AM CDT [facility] Calcium 8.8 8.4 - 10.4 mg/dL 07/28/2020 9:06 AM CDT [facility] Anion Gap 11 8 - 18 mmol/L 07/28/2020 9:06 AM CDT [facility] BUN 38(H) 8.4 - 25.7 mg/dL 07/28/2020 9:06 AM CDT [facility] Creatinine 5.77(H) 0.72 - 1.25 mg/dL 07/28/2020 9:06 AM CDT [facility] eGFR by MDRD 10(L) >60 mL/min/1.7 3m2 07/28/2020 9:06 AM CDT [facility] eGFR by MDRD 12(L) >60 mL/min/1.7 3m2 07/28/2020 9:06 AM CDT [facility] Blood BLOOD SPECIMEN / Unknown Lab Venipuncture / Unknown 07/28/2020 8:14 AM CDT 07/28/2020 8:14 AM CDT Eliza Phan MD LAB - CHEMISTRY ORD ERABLES [facility] [address] [place] [address] * CT KIDNEYS WWO CONTRAST [...] stability. Report dictated by Donny Oneill DO (head resident) I, Dr. RODRICK JOSEPH have personally reviewed [...] stability. Report dictated by Donny Oneill DO (head resident) I, Dr. RODRICK JOSEPH have personally reviewed and interpreted this examination/study. This report was electronically signed by RODRICK JOSEPH on 11:16 PM . Alan Davenport MD CT ORDERABLES * HEMOGLOBIN A1C - POINT OF CARE (AMB) [facility] (05/17/2020 1:19 PM CDT) Hemoglobin A1c POCT 11.1 BLOOD SPECIMEN / Unknown 05/17/2020 1:19 PM CDT Miya Juárez MAT REPAIRER-LIMEHOUSE WORKER LAB - POINT O F CARE ORDERABLES [...] the fluoroscopy table in supine position. AP candle cutter image was obtained. A Key catheter was [...] the fluoroscopy table in supine position. AP candle cutter image was obtained. A Key catheter was [...] Rh O NEG 11/09/2019 12:07 PM CDT [facility] Blood BLOOD SPECIMEN / Unknown Lab Venipuncture / Unknown 11/09/2019 10:20 AM CDT 11/09/2019 11:20 AM CDT Alan Davenport MD LAB - BLOOD BANK ORD ERABLES [facility] [address] [place] [address], [facility] [phone] * HLA TYPING DNA LOW RESOLUTION DR,DQ (11/09/2019 10:13 AM CDT) DR DQ Low Resolution DRB1-1 03 (DR17) 12/09/2019 3:33 PM CDT [facility] DR DQ Low Resolution DRB1-2 11 12/09/2019 3:33 PM CDT [facility]) DR DQ Low Resolution DQB1-1 02 12/09/2019 3:33 PM CDT [facility]) DR DQ Low Resolution DQB1-2 03 (DQ7) 12/09/2019 3:33 PM CDT [facility]) DR DQ Low Resolution DRB3-1 01 12/09/2019 3:33 PM CDT [facility]) DR DQ Low Resolution DRB3-2 02 12/09/2019 3:33 PM CDT [facility]) DR DQ Low Resolution DRB4-1 Negative 12/09/2019 3:33 PM CDT [facility]) DR DQ Low Resolution DRB4-2 Negative 12/09/2019 3:33 PM CDT [facility]) DR DQ Low Resolution DRB5-1 Negative 12/09/2019 3:33 PM CDT [facility]) DR DQ Low Resolution DRB5-2 Negative 12/09/2019 3:33 PM CDT [facility]) DR DQ Low Resolution Methodology SSOP 12/09/2019 3:33 PM CDT [facility]) Comment DR DQ Low Resolution - 12/09/2019 3:33 PM CDT [facility]) DR DQ Low Resolution test date 12/09/2019 12/09/2019 3:33 PM CDT [facility]) Comment: This test was developed and its performance characteristics determined by the [facility]. It has not been cleared [...] high complexity clinical laboratory testing. CLIA ID# [id number] Performed at: [facility], [address] @ [place] [address] Uat Tester: Juan Diego Martin MD, Blood BLOOD SPECIMEN / Unknown Lab Venipuncture / Unknown 11/09/2019 10:13 AM CDT 11/10/2019 3:47 AM CDT Alan Davenport MD LAB - BLOOD BANK ORD ERABLES [facility] [address] [place] [address], [facility] * HLA TYPING DNA LOW RESOLUTION A,B,C (11/09/2019 10:13 AM CDT) ABC DNA A1 02 12/09/2019 3:34 PM CDT [facility]) ABC DNA A2 03 12/09/2019 3:34 PM CDT [facility]) ABC DNA B1 08 12/09/2019 3:34 PM CDT [facility]) ABC DNA B2 44 12/09/2019 3:34 PM CDT [facility]) ABC DNA BW1 6 12/09/2019 3:34 PM CDT [facility] ABC DNA BW2 4 12/09/2019 3:34 PM CDT [facility]) ABC DNA C1 02 12/09/2019 3:34 PM CDT [facility] ABC DNA C2 07 12/09/2019 3:34 PM CDT [facility]) ABC DNA Methodology SSOP 12/08 3:34 PM CDT [facility]) Comment ABC DNA - 0 3:34 PM CDT [facility]) ABC DNA Test Date 0 12/09/2019 3:34 PM CDT [facility]) Comment: This test was developed and its performance characteristics determined by the [facility]. It has not been cleared [...] high complexity clinical laboratory testing. CLIA ID# [id number] Performed at: [facility], [address] @ [place] [address] Uat Tester: Juan Diego Martin MD, Blood BLOOD SPECIMEN / Unknown Lab Venipuncture / Unknown 11/09/2019 10:13 AM CDT 11/10/2019 3:47 AM CDT Alan Davenport MD LAB - BLOOD BANK ORD ERABLES [facility] [address] [place] [address], [place] * HLA ANTIBODY SCREEN LUM CLASS 2 ID (11/09/2019 10:13 AM CDT) % PRA 4 12/09/2019 3:33 PM CDT [facility] Class 2 LUM Specificity - 12/09/2019 3:33 PM CDT [facility]) Class 2 LUM Test Date 0 12/09/2019 3:33 PM CDT [facility]) Comment: This test was developed and its performance characteristics determined by the [facility]. It has not been cleared [...] high complexity clinical laboratory testing. CLIA ID# [id number] Performed at: [facility], [address] @ [place] [address] Uat Tester: Juan Diego Martin MD, Blood BLOOD SPECIMEN / Unknown Lab Venipuncture / Unknown 11/09/2019 10:13 AM CDT 11/10/2019 3:40 AM CDT Alan Davenport MD LAB - BLOOD BANK ORD ERABLES [facility]) [address] [place] [address], [facility] * HLA ANTIBODY SCREEN LUM CLASS 1 ID (11/09/2019 10:13 AM CDT) % PRA 0 12/09/2019 3:33 PM CDT [facility] Class 1 LUM Specificity - 12/09/2019 3:33 PM CDT [facility]) Class 1 LUM Test Date 0 12/09/2019 3:33 PM CDT [facility]) Comment: This test was developed and its performance characteristics determined by the [facility]. It has not been cleared [...] high complexity clinical laboratory testing. CLIA ID# [id number] Performed at: [facility], [address] @ [place] [address] Uat Tester: Juan Diego Martin MD, Blood BLOOD SPECIMEN / Unknown Lab Venipuncture / Unknown 11/09/2019 10:13 AM CDT 11/10/2019 3:40 AM CDT Alan Davenport MD LAB - BLOOD BANK ORD ERABLES Performing Organization Address City/[facility]/ZIP Co de Phone Number [facility] [address] [place] [address], [place] * HIV-1 HIV-2 ANTIGEN/ANTIBODY (11/09/2019 10:13 AM CDT) Pathologist [facility] HIV Antigen/Antibod y 1 & 2 Non-reacti ve Non-react sylvie 11/09/2019 12:26 PM CDT [facility] Comment:Neither HIV-1 p24 An tigen nor HIV-1/HIV-2 Antibodies are detected. Blood BLOOD SPECIMEN / Unknown Lab Venipuncture / Unknown 11/09/2019 10:13 AM CDT 11/09/2019 11:10 AM CDT Alan Davenport MD LAB - HEMATOLOGY ORD ERABLES Performing Organization Address City/[facility]/ZIP Co de Phone Number [facility] [address] [place] [phone], [facility] [phone] * RUBELLA ANTIBODY IGG TITER (11/09/2019 10:13 AM CDT) Rubella Antibody IgG >330.0 IU/mL 11/11/2019 11:06 AM CDT [facility] ([facility]) Comment: INTERPRETIVE INFORMATION: Rubella Antibody, IgG [...] the amount of antibody present. Performed By: [facility] [address] [place] [address] Vehicle Cost Engineer: Kaur Blankenship MD Blood BLOOD SPECIMEN / Unknown Lab Venipuncture / Unknown 11/09/2019 10:13 AM CDT 11/09/2019 11:10 AM CDT Alan Davenport MD LAB - SEROLOGY ORDER MICHELLE [facility]) [address] [place] [address], [facility] * RUBEOLA ANTIBODY IGG (11/09/2019 10:13 AM CDT) [facility] Measles (Rubeola) Antibody IgG >300.0 AU/mL 11/11/2019 12:20 PM CDT [facility] ([facility]) Comment: INTERPRETIVE INFORMATION: Measles (Rubeola) Antibody, [...] laboratory at the same time. Performed By: [facility] [address] [place] [address] Vehicle Cost Engineer: Kaur Blankenship MD Blood BLOOD SPECIMEN / Unknown Lab Venipuncture / Unknown 11/09/2019 10:13 AM CDT 11/09/2019 11:11 AM CDT Alan Davenport MD LAB - CHEMISTRY PK ZENG Performing Organization Address [facility] de Phone Number [facility] [employer] [facility]) [address] [place] [address] * MUMPS ANTIBODY IGG (11/09/2019 10:13 AM CDT) Mumps Virus Antibody IgG >300.0 AU/mL 11/11/2019 11:57 AM CDT [facility] ([facility]) Comment: INTERPRETIVE INFORMATION: Mumps Ab, IgG [...] laboratory at the same time. Performed By: [facility] [address] [place] [address] Vehicle Cost Engineer: Kaur Blankenship MD Blood BLOOD SPECIMEN / Unknown Lab Venipuncture / Unknown 11/09/2019 10:13 AM CDT 11/09/2019 11:10 AM CDT Alan Davenport MD LAB - CHEMISTRY PK ZENG Performing Organization Address [facility] de Phone Number [facility] ([facility]) [address] * VARICELLA ZOSTER ANTIBODY IGG (11/09/2019 10:13 AM CDT) Varicella zoster Virus Antibody IgG 1243.0 IV 11/11/2019 12:55 PM CDT [facility] ([facility]) Comment: INTERPRETIVE INFORMATION: VZV Ab, IgG [...] laboratory at the same time. Performed By: [facility] [address] [place] [address] Vehicle Cost Engineer: Kaur Blankenship MD Blood BLOOD SPECIMEN / Unknown Lab Venipuncture / Unknown 11/09/2019 10:13 AM CDT 11/09/2019 11:11 AM CDT Alan Davenport MD LAB - CHEMISTRY PK ZENG Performing Organization Address [facility]/ZIP Co de Phone Number [employer] [facility]) [address] [place] [address] * (ABNORMAL) CHARLENE-GAONA VIRUS ANTIBODY TO VCA IGG (11/09/2019 10:13 AM CDT) [facility] Charlene-Gaona Virus Antibody IgG Viral Capsid Antigen 277.0(H) 0.0 - 21.9 U/mL 11/11/2019 12:37 PM CDT [facility] [employer] ([facility]) Comment: INTERPRETIVE INFORMATION: Charlene-Gaona Virus Antibody to Viral Capsid Antigen, IgG 17.9 U/mL or less.......Not Detected 18.0-21.9 U/mL..........Indeterminate - Repeat testing in 10-14 days may be helpful. 22.0 U/mL or greater....Detected Performed By: [facility] [address] [place] [address] Vehicle Cost Engineer: Kaur Blankenship MD Blood BLOOD SPECIMEN / Unknown Lab Venipuncture / Unknown 11/09/2019 10:13 AM CDT 11/09/2019 11:12 AM CDT Alan Davenport MD LAB - CHEMISTRY PK ZENG Performing Organization Address [facility]/ZIP Co de Phone Number [facility] ([facility]) [address] [place] [address] * TYPE + SCREEN PANEL (11/09/2019 10:13 AM CDT) Antibody Screen NEG 0 12:07 PM CDT [facility] ABO Rh O NEG 11/09/2019 12:07 PM CDT [facility] Blood Bank BLOOD SPECIMEN / Unknown Lab Venipuncture / Unknown 11/09/2019 10:13 AM CDT 11/09/2019 11:20 AM CDT Alan Davenport MD LAB - BLOOD BANK ORD ERABLES [facility] [address] [place] [address], [facility] [phone] * CT ABDOMEN AND PELVIS NON IV [...] Enlarged prostate. Dictated by Agusto Bradley MD (head resident). IDr. Terry M.D. have personally reviewed and [...] Enlarged prostate. Dictated by Agusto Bradley MD (head resident). Dr. Terry Leigh M.D. have personally reviewed [...] periapical abscess. Dictated by Felipe Younger MD (head resident). Dr. ADRIANA Leigh have personally reviewed and [...] periapical abscess. Dictated by Felipe Younger MD (head resident). Dr. ADRIANA Leigh have personally reviewed and [...] RIGHT 3VW OR MORE (03/05/2018 10:25 AM BI [employer] ARCHITECT) Anatomical Region Laterality Modality Wrist / Hand Radiographic Pastora ging 03/05/2018 11:3 0 AM [employer] ARCHITECT Impressions 03/05/2018 12:17 PM [employer] ARCHITECT IMPRESSION: 1. No acute bony abnormalities. No significant joint space narrowing. 2. Suggestion of mild diffuse soft tissue swelling of the third digit. Dictated by Lizandro Diaz MD (head resident). Dr. Terry Leigh M.D. have personally reviewed and interpreted this examination/study. This report was electronically signed by Terry DE LEON M.D. on 03/05/2018 12:17 PM . Narrative 03/05/2018 12:17 PM [employer] ARCHITECT EXAMINATION: XR HAND RIGHT 3VW OR MORE [...] third digit. Dictated by Lizandro Diaz MD (head resident). IDr. Terry M.D. have personally reviewed and interpretedthis examination/study. This report was electronically signed by Terry DE LEON M.D. on 03/05/2018 12:17 PM . Aracely Rock PA-C DIAGNOSTIC IMAG ING ORDERABLES * XR KNEE 3 VW RIGHT (03/28/2017 8:14 AM [employer] ARCHITECT) Anatomical Region Laterality Modality Lower Extremity Computed Radiogr aphy Narrative 03/28/2017 1:03 PM [employer] ARCHITECT Nadja Jenkins, RT(R) 03/28/2017 1:03 PM See progress notes for results Marilou Rodríguez PA-C DIAGNOSTIC IM AGING ORDERABLES Care Teams Beautician Apprentice Relationship Specialty Start Date End Date Jeff Strickland MD [address] [place] [address] PCP - General 03/05/18 [place] [address] [address] Orthopedic Surgery 03/28/17
--- OUTSIDE RECORDS SUMMARY | 2024-04-03 08:24 | XMS_ITS | Encounter Summary ---
Author Organization [facility] Address [address] [place] [address] Phone Care Team Providers Care English Composition Teacher Name Role Phone Jeff Strickland MD Primary Care Provider Chan Nicholas MD Unavailable [phone] Alan Mccall MD Unavailable [phone] Lorna Lantigua MD Unavailable [phone] Juliette Savage RN Unavailable Pepito Haro MD PhD Unavailable Solange Guido MD Unavailable [phone] Encounter Details Date Type Department Care Team (Late st Contact Info) Description 05/02/2021 Ophth Exam [facility] Ophthalmology [address] [place] [address] 1[address] [place] [phone] Corina Ventura MD PhD [address] [address] Social History Tobacco Use Types [...] on file Legal Sex Male 2:23 AM 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 DEPARTMENT INTERN Gender Identity Not on file Sexual Orientation [...] COVID: Suspected 03/24/2023 03/24/2023 03/24/2023 5:45 PM NEWS DEPARTMENT INTERN COVID19 03/24/2023 03/24/2023 04/08/2023 3:06 AM NEWS DEPARTMENT INTERN COVID: Recovered Comment:Added based on recent COVID [...] arcade Normal Periphery Normal Normal Care Teams English Composition Teacher Relationship Specialty Start Date End Date Jeff Strickland MD [address] [place] [address] PCP - General Family Medicine 04/02/18 Chan Nicholas MD [address] [place] [address] Consulting Physician Gastroenterology 11/24/18 Aaln Mccall MD [address] [place] [address] Referring Physician Nephrology 11/24/18 Lorna Lantigua MD [address] [place] [address] Consulting Physician Cardiology 11/24/18 07/22/23 Juliette Savage, RN [address] [place] [address] Nurse Navigator 06/04/21 03/14/22 Pepito Haro MD PhD [address] [place] [address] Consulting Physician Neurosurgery 12/03/22 Solange Guido MD [address] [facility] [address] [place] [address] Referring Physician Cardiovascular Disease 07/23/23 documented as of this encounter
--- OUTSIDE RECORDS SUMMARY | 2024-04-03 08:24 | XMS_ITS | Encounter Summary ---
Author Organization [facility] Address [facility] [place] [address] Care Team Providers Care Material Disposition Inspector Name Role Phone Deandre Bojorquez MD Unavailable [phone] Jeff Strickland MD Primary Care Provider [phone] Encounter Details Date Type Department Care Team (Late st Contact Info) Description 03/30/2024 Lab Requisition [facility] MAIN LAB [address] [place] [id number] Alan Davenport MD [facility] [place] [place] [address] Social History Tobacco Use Types Packs/Day Years [...] Info) Description 08/04/2024 11:30 AM CDT Appointment [facility] MRI [address] [place] [address] Thomas Mendoza MD [address] [facility] 2L [place] [address] 08/04/2024 1:30 PM CDT Office Visit [facility] - Urology [address] [place] [address] Thomas Mendoza MD [address] [facility] 2L [place] [address] documented as of this encounter Procedures Procedure Name Priority Date/Time Associated Diagnosis Comments HOLD HLA SPECIMEN Routine 03/25/2024 2:5 1 PM BUDGET EXAMINER documented in this encounter Results * HOLD HLA SPECIMEN (03/25/2024 2:51 PM BUDGET EXAMINER) Hold HLA Specimen 03/30/2024 4:01 PM BUDGET EXAMINER [facility] ([facility]) Comment:The Hold HLA specime n has been received into the lab and will be held for 5 years at 4 degrees. Blood BLOOD SPECIMEN / Unknown 03/25/2024 2:51 PM BUDGET EXAMINER 03/30/2024 2:51 PM BUDGET EXAMINER Alan Davenport MD LAB - BLOOD BANK ORD ERABLES [facility] ([place]) [address] documented in this encounter Visit Diagnoses Not on filedocumented in this encounter Care Teams Material Disposition Inspector Relationship Specialty Start Date End Date Jeff Strickland MD [address] [place] [address] PCP - General 03/05/18 [place] [address] [facility] [address] [place] [address] Orthopedic Surgery 03/28/17 documented as of this encounter
--- OUTSIDE RECORDS SUMMARY | 2024-04-03 08:24 | XMS_ITS | Clinical Summary ---
Author Organization [facility] Address [facility] [place] [address] Care Team Providers Care Rougher Helper Name Role Phone Jeff Strickland MD Primary Care Provider [phone] Allergies Active Allergy Reactions Criticality Noted Date [...] by mouth nightly at bedtime. Active Multiple Vitamins-Television Repairman als (PRESERVISION AREDS 2 OR) Take 1 [...] drink = 0.6 oz pur e alcohol) [facility] Utilities Answer Date Recorded In the [...] place to sleep or slept in a assisted (including now)? 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
--- OUTSIDE RECORDS SUMMARY | 2024-04-03 08:24 | XMS_ITS | Continuity of Care Document ---
Author Organization [employer] [facility] Address [address] [facility] [address] [place] [address] Phone Care Team Providers Care Remediation Consultant Name Role Phone Olu Payan Unavailable [...] Diagnoses Date Provider Providers Copied on Encounter [email or web address], [place], [place], [id number], tel:[phone] [place] No Information [address] Gladis Olu. [address] [place] [address], [address], [place], [place], [facility], . tel: [phone] [address] [place] [address], [place], [place], [id number], tel:[phone] [place] No Information 4 Genoveva Mcdonald. . Referring Provider: Jeff Strickland [address] [place] [address] [address], [place], [place], [facility]. tel:[phone] [place] [address], [place], [place], [id number], tel:[phone] [place] No Information 4 Gladis Olu. [address] [place] [address], [address], [place], [place], [facility], . tel: [phone] Referring Provider: Yanira Chin [address], [place], [place], [facility]. tel:[phone] [place] [address], [place], [place], [id number], tel:[phone] [place] No Information 4 Gladis Raines. [address] [place] [address], [address], [place], [place], [facility], . tel: [phone] Referring Provider: Yanira Chin [address], [place], [address]. tel:[phone], [id number], tel:[phone] [place] No Information 4 Jacinto Fairchild. . Referring Provider: Yanira Chin [facility] [address], [place], [address]. tel:[phone], [place], [place], [id number], [place] tel:[phone] [place] No Information 4 Jacinto Fairchild. . Referring Provider: Jeff Strickland [address] [place] [address] [address], [place], [place], [facility]. tel:[phone], [id number], tel:[phone] [place] No Information 4 Genoveva Mcdonald. . Referring Provider: Jeff Strickland [address] [place] [address] [address], [place], [place], [facility]. tel:[phone], [id number], tel:[phone] [place] No Information 4 Gladis Raines. [address] [facility], [address], [place], [facility], . tel: [phone] Referring Provider: Jeff Strickland [address] [place] [address] [address], [place], [place], [facility]. tel:[phone], [id number], tel:[phone] [place] No Information 0 4 Genoveva Mcdonald. . Referring Provider: Jeff Strickland [address] [place] [address] [address], [place], [place], [facility]. tel:[phone] [address], [place], [id number], [place] tel:[phone] [place] No Information 0 4 Gladis Raines. [address] [facility], [address], [place], [place], [facility], . tel: [phone] Referring Provider: Jeff Strickland [address] [place] [address] [address], [place], [place], [facility]. tel:[phone] Family History Family Member Type Diagnosis Age At Onset No Information Payers Payer name Insurance type Covered republican ID Diego suarez(ernesto Hadley [id number] Social History Type Description Quantity Date Captured [...]
--- OUTSIDE RECORDS SUMMARY | 2024-04-03 08:24 | XMS_ITS | Encounter Summary ---
Author Organization [facility] Address [address] [place] [address] Care Team Providers Care Manager Infusion Name Role Phone Deandre Bojorquez MD Unavailable [phone] Jeff Strickland MD Primary Care Provider [phone] Encounter Details Date Type Department Care Team (Late st Contact Info) Description 02/07/2023 Lab Requisition [facility] MAIN LAB [address] [place] [phone] Alan Davenport MD [facility] [place] [address] Social History Tobacco Use Types Packs/Day Years [...] Description 08/04/2024 11:30 AM CDT Appointment [facility] MRI [address] [place] [address] Thomsa Mendoza MD [address] [facility] 2L [place] [address] 08/04/2024 1:30 PM CDT Office Visit [facility] - Urology [address] [place] [address] Thomas Mendoza MD [address] [facility] 2L [place] [address] documented as of this encounter Procedures Procedure Name Priority Date/Time Associated Diagnosis Comments HOLD HLA SPECIMEN Routine 2023 7:5 8 AM CANVAS CUTTER documented in this encounter Results * HOLD HLA SPECIMEN (2023 7:58 AM CANVAS CUTTER) Hold HLA Specimen 02/07/2023 9:01 AM CANVAS CUTTER [facility] ([facility]) Comment:The Hold HLA specime n has been received into the lab and will be held for 5 years at 4 degrees. Blood BLOOD SPECIMEN / Unknown 2023 7:58 AM CANVAS CUTTER 02/07/2023 7:59 AM CANVAS CUTTER Alan Davenport MD LAB - BLOOD BANK ORD ERABLES [facility] ([place]) [address] documented in this encounter Visit Diagnoses Not on filedocumented in this encounter Care Teams Manager Infusion Relationship Specialty Start Date End Date Jeff Strickland MD [address] [place] [address] PCP - General 03/05/18 [place] [address] [facility] [address] [place] [address] Orthopedic Surgery 03/28/17 documented as of this encounter
--- OUTSIDE RECORDS SUMMARY | 2024-04-03 08:24 | XMS_ITS | Clinical Summary ---
Author Organization [facility] Address [address] [place] [address] Phone Care Team Providers Care Speech And Language Assistant Name Role Phone Jeff Strickland MD Primary Care Provider [phone] Allergies No known active allergies Medications pantoprazole [...] tablet Take 112 mcg by mouth daily die turner. Active aspirin (ANGELLA) 325 mg tablet Take 325 mg by mouth daily. Active Vit C-Vit M-Ngjvkl-UqLq-L utein (PRESERVISION) 226 mg-200 unit -5 mg-0.8 [...] Department Care Team Description 03/03/2024 2:05 PM BODY SHOP WORKER Ancillary Procedure [facility] [address] [place] [address] Sergio Rivera MD Pain in [...] Comments Blood Pressure 167/77 02/04/2019 9:16 AM BODY SHOP WORKER Pulse 64 02/04/2019 9:16 AM BODY SHOP WORKER Temperature 36.5 C (97.7 F) 02/04/2019 9:16 AM BODY SHOP WORKER Respiratory Rate 16 02/04/2019 9:16 AM BODY SHOP WORKER Oxygen Saturation 97% 02/04/2019 9:16 AM BODY SHOP WORKER Inhaled Oxygen Concentration - - Weight 113.4 kg (250 lb) 02/04/2019 9:16 AM BODY SHOP WORKER Height 175.3 cm (5' 9 ) 02/04/2019 9:16 AM BODY SHOP WORKER Body Mass Index 36.92 02/04/2019 9:16 AM BODY SHOP WORKER Plan of Treatment Health Maintenance Due Date [...] 2+ VW BILAT Routine 03/03/2024 2:26 PM BODY SHOP WORKER Pain in shoulder region, left Pain in shoulder region, right from Last 3 Months Results * XR SHOULDER 2+ VW BILAT (03/03/2024 2:26 PM BODY SHOP WORKER) Anatomical Region Laterality Modality Upper Extremity Computed Radiogr aphy 03/03/2024 2:27 PM BODY SHOP WORKER Impressions 03/03/2024 2:34 PM BODY SHOP WORKER IMPRESSION: 1. 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 Narrative 03/03/2024 2:34 PM BODY SHOP WORKER EXAM: XR SHOULDER 2+ VW BILAT DATE: [...] Last 3 Months Insurance [employer] MEDICARE SUPPLEMENT [address] [place], [place] [address]O [facility] [place] [address] BLUE ACCESS/TRUE BLUE PPO Care Teams Speech And Language Assistant Relationship Specialty Start Date End Date Jeff Strickland MD [address] [place] [address] PCP - General Family Practice 01/01/19
--- OUTSIDE RECORDS SUMMARY | 2024-04-03 08:24 | XMS_ITS | Encounter Summary ---
Author Organization [facility] Address [facility] [place] [address] Care Team Providers Care Nursery Supervisor Name Role Phone Deandre Bojorquez MD Unavailable [phone] Jeff Strickland MD Primary Care Provider [phone] Encounter Details Date Type Department Care Team (Late st Contact Info) Description 05/29/2023 Lab Requisition [facility] MAIN LAB [address] [place] [phone] Alan Davenport MD [facility] [place] [address] Social History Tobacco Use Types Packs/Day Years [...] Info) Description 08/04/2024 11:30 AM CDT Appointment [facility] MRI [address] [place] [address] Thomas Mendoza MD [address] [facility] 2L [place] [address] 08/04/2024 1:30 PM CDT Office Visit [facility] - Urology [address] [place] [address] Thomas Mendoza MD [address] [facility] 2L [place] [address] documented as of this encounter Procedures Procedure Name Priority Date/Time Associated Diagnosis Comments HOLD HLA SPECIMEN Routine 05/21/2023 9:2 4 AM CDT documented in this encounter Results * HOLD HLA SPECIMEN (05/21/2023 9:24 AM CDT) Hold HLA Specimen 05/29/2023 10:30 AM CDT [facility] ([facility]) Comment:The Hold HLA specime n has been received into the lab and will be held for 5 years at 4 degrees. Blood BLOOD SPECIMEN / Unknown 05/21/2023 9:24 AM CDT 05/29/2023 9:24 AM CDT Alan Davenport MD LAB - BLOOD BANK ORD ERABLES [facility] ([facility]) [address] [place], [place] [address] [place] [address] documented in this encounter Visit Diagnoses Not on filedocumented in this encounter Care Teams Nursery Supervisor Relationship Specialty Start Date End Date Jeff Strickland MD [address] [place] [address] PCP - General 03/05/18 [place] [address] [address] Orthopedic Surgery 03/28/17 documented as of this encounter
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
--- OUTSIDE RECORDS SUMMARY | 2024-04-03 08:24 | XMS_ITS | Encounter Summary ---
Author Organization [facility] Address [facility] [place] [address] Care Team Providers Care Integration Manager Name Role Phone Deandre Bojorquez MD Unavailable [phone] Jeff Strickland MD Primary Care Provider [phone] Encounter Details Date Type Department Care Team (Late st Contact Info) Description 04/10/2023 Lab Requisition [facility] [address] [place] [id number] Alan Davenport MD [facility] [place] [address] Social History Tobacco Use Types Packs/Day Years [...] Description 08/04/2024 11:30 AM CDT Appointment [facility] MRI [address] [place] [address] Thomas Mendoza MD [address] [facility] [address] DIV OF [place]OLOGIC [place] [address] 08/04/2024 1:30 PM CDT Office Visit [facility] - Urology [address] [place] [address] Thomas Mendoza MD [address] [facility] [address] DIV OF [place]OLOGIC [place] [address] documented as of this encounter Procedures Procedure Name Priority Date/Time Associated Diagnosis Comments HOLD HLA SPECIMEN Routine 04/02/2023 3:0 1 PM REGULATOR ASSEMBLER documented in this encounter Results * HOLD HLA SPECIMEN (04/02/2023 3:01 PM REGULATOR ASSEMBLER) Hold HLA Specimen 04/10/2023 4:01 PM REGULATOR ASSEMBLER [facility] Comment:The Hold HLA specime n has been received into the lab and will be held for 5 years at 4 degrees. Blood BLOOD SPECIMEN / Unknown 04/02/2023 3:01 PM REGULATOR ASSEMBLER 04/10/2023 3:01 PM REGULATOR ASSEMBLER Alan Davenport MD LAB - BLOOD BANK ORD ERABLES [facility] ([place]) [address] documented in this encounter Visit Diagnoses Not on filedocumented in this encounter Care Teams Integration Manager Relationship Specialty Start Date End Date Jeff Strickland MD [address] [place] [address] PCP - General 03/05/18 [place] [address] [facility] [address] [place] [address] Orthopedic Surgery 03/28/17 documented as of this encounter
--- OUTSIDE RECORDS SUMMARY | 2024-04-03 08:24 | XMS_ITS ---
Author Organization [facility] Address [address] [place] [address] Care Team Providers Care Cardiovascular Physician Assistant Name Role Phone Deandre Bojorquez MD Unavailable [phone] Jeff Striclkand MD Primary Care Provider [phone] Transplant Episode Kidney Candidate [facility] ([place], [place]) - [facility] Center waitlisted on 05/06/2022 Marked as Inactive on 12/19/2022 Reason: Temporarily too Sick Kidney CoordinatorSavanna Edwards RN Phone: N/A Fax: N/A Email: N/A Scores Score Value Updated Exceptions/Reas ons CPRA Not available EPTS (Calc) 95 04/03/2024 [place] Organ Diagnosis Organ Primary Contributory Kidney Diabetes Mellitus - Type II Hype rtensive Nephrosclerosis Care Team Name Role Phone Fax Email Savanna Edwards RN Kidney Coordinator N/A N/A N/A Alan Mccall MD Referring Physician N/A N/A N/A Anjali Mott LMSW Cuff Folder N/A N/A N/A Millie Lindquist Plastics Technician N/A N/A N/A Events Pre-Transplant Referred: 12/05/2021 Evaluation began: 12/13/2021 Committee: 05/02/2022 UNOS qualified: 01/17/2020 Center waitlisted: 05/06/2022 Dialysis History Dialysis History Start End Type Comments Center 01/17/2020 Peritoneal [facility] Information Center Phone Fax Address [facility] [phone] [address] [place] [phone]
--- OUTSIDE RECORDS SUMMARY | 2024-04-03 08:24 | XMS_ITS | Continuity of Care Document ---
Author Organization [facility] Address [address] [place] [address] Phone Care Team Providers Care Installation Tech Name Role Phone Kee Rodriguez Unavailable Unavailable Procedures Procedure Date Office/outpatient Visit, Est Eye Exam Established Pt Advance Directives Directive Yes / No Effective Date File Name No Information Encounters Encounter Description Practice Location Reason(s) For Visit Diagnoses Date Provider Providers Copied on Encounter Office/outpat ient Visit, Est [facility], [address] [place] [address] [address], [place], [place], [id number], tel:[phone] [facility] No Information Mar-0 2-201 0 Krishnasamy Kee. [address] [place] [address], [place], [place], [facility], [place]. tel:[phone] [facility], [address] [place] [address] [address], [place], [place], [id number], tel:[phone] [facility] No Information Nhan-3 0-200 7 David OD Freddy. [address], [place], [place], [facility], [place]. tel:[phone] Family History Family Member Type Diagnosis Age [...]
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
--- OUTSIDE RECORDS SUMMARY | 2024-04-03 08:24 | XMS_ITS | Clinical Summary ---
Author Organization [facility] Suyapa milligan Address [address] [address] Phone Care Team Providers Care Spring Machine Operator Name Role Phone Jeff Strickland MD Primary Care Provider [phone] Allergies No known active allergies Medications Medication [...] tablet 3 11/29/2019 Active Continuous Blood Gluc Residential Monitor (FreeStyle Em [place]) device 1 each daily 12/01/2019 Active Continuous Blood Gluc Sensor (FreeStyle Em Sensor System) misc 1 each once every 2 weeks 12/01/2019 Active Lancets (OneTouch Delica Plus Lebexc63R) misc OneTouch Delica Plus Lancet 33 gauge [...] 11/10/2019 Overview (12/17/2019): Kendall Carl 1955 Referring Test Engineering Technician: Alan Mccall Dialysis Info: NOD GFR 13 Type: Time: (Not currently on dialysis) days Blood Type: O NEG Body mass index is 37.36 kg/m . ALERTS Gas Well Pumper: needs to establish Past Medical History: Diagnosis Date Arthropathy RA. Dr Strickland manages. CHF (congestive heart failure) 2 yrs ago Slp is Dr. Becerra in [place]. CKD (chronic kidney disease), stage V Community acquired pneumonia 2018 [facility] hospitalized. Diabetes mellitus 20 years. Lantus pen. Esophageal reflux takes med Hypercholesteremia 5-10 yrs meds Hypertension takes meds Hypothyroidism meds 20 years Kidney stones 5-6 years ago had 2 in the same year. Malignancy right kidney 2012 Obstructive sleep apnea 3 years. [facility]. Angela remember doctors name Renal cell [...] file Gets together: Not on file Attends judaism service: Not on file Active member of [...] Impression: It is the impression of this school social worker that Kendall Carl has several positive factors for Kidney transplant candidacy from a psychosocial perspective. Patient appears to have appropriate knowledge of illness. Patient has sufficient insurance coverage and stable financial situation for post transplant needs. No concerns regarding substance abuse, legal issues, or mental health needs. Patient has adequate support system and appropriate discharge plan. Plan: coke worker to provide supportive services as needed. Patient appears to be a reasonable candidate for transplant from a psychosocial perspective. -Post transplant arrangement forms are needed prior to being listed. -Updated toxicology results needed, per protocol Psychiatric Consult Recommended: No Transplant Senior Android Developer: Joy Tam LCSW RD: 11/09/2019 BMI= 36.2, [...] use my fitness pal or my food lean coach) - Consume no more than 2000 [...] nephrectomy. 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 N4lTREN Immunizations Name Administration Dates Next Due Influenza [...] (#1) 2023 9, 04/10/2016, 04/09/2016 Care Teams Spring Machine Operator Relationship Specialty Start Date End Date Jeff Strickland MD [address] [place] [address] PCP - General Internal Medicine 07/15/18
--- OUTSIDE RECORDS SUMMARY | 2024-04-03 08:26 | XMS_ITS | Continuity of Care Document ---
Author Organization [facility] Address [address] [place] [address] Phone Care Team Providers Care Belt Polisher Name Role Phone Olu Payan Unavailable Unavailable [...] Diagnoses Date Provider Providers Copied on Encounter [facility] [address], [place], [place], [id number], tel:[phone] [place] No Information 4 Gladis Olu. [address] [place] [address], [address], [place], [place], [facility], . tel: [phone] [address] [place] [address], [place], [place], [id number], tel:[phone] [place] No Information 4 Genoveva Mcdonald. . Referring Provider: Jeff Strickland [address] [place] [address] [address], [place], [place], [facility]. tel:[phone] [address], [place], [place], [id number], tel:[phone] [place] No Information 4 Gladis Olu. [address] [place] [address], [address], [place], [place], [facility], . tel: [phone] Referring Provider: Yanira Chin [facility] [address], [place], [place], [facility]. tel:[phone] [address] [address], [place], [place], [id number], tel:[phone] [place] No Information 4 Gladis Raines. [address] [place] [address], [address], [place], [place], [facility], . tel: [phone] Referring Provider: Yanira Chin [facility] [address], [place], [address]. tel:[phone], [id number], tel:[phone] [place] No Information 4 Jacinto Fairchild. . Referring Provider: Yanira Chin [facility] [address], [place], [address]. tel:[phone] [address], [place], [place], [id number], [place] tel:[phone] [place] No Information 4 Jacinto Fairchild. . Referring Provider: Jeff Strickland [address] [place] [address] [address], [place], [place], [facility]. tel:[phone], [id number], tel:[phone] [place] No Information 4 Genoveva Mcdonald. . Referring Provider: Jeff Strickland [address] [place] [address] [address], [place], [place], [facility]. tel:[phone], [id number], tel:[phone] [place] No Information 4 Gladis Raines. [address] [facility], [address], [place], [facility], . tel: [phone] Referring Provider: Jeff Strickland [address] [place] [address] [address], [place], [place], [facility]. tel:[phone], [id number], tel:[phone] [place] No Information 0 4 Genoveva Mcdonald. . Referring Provider: Jeff Strickland [address] [place] [address] [address], [place], [place], [facility]. tel:[phone], [place], [id number], [place] tel:[phone] [place] No Information 0 4 Gladis Raines. [address] [facility], [address], [place], [place], [facility], . tel: [phone] Referring Provider: Jeff Strickland [address] [place] [address] [address], [place], [place], [facility]. tel:[phone] Family History Family Member Type Diagnosis Age At Onset No Information Payers Payer name Insurance type Covered republican ID Diego suarez(ernesto Hadley [id number] Social History Type Description Quantity Date Captured [...]
--- OUTSIDE RECORDS SUMMARY | 2024-04-03 08:26 | XMS_ITS | Continuity of Care Document ---
Author Organization [facility] Address [address] [place] [address] Phone Care Team Providers Care Senior Policy Advisor Name Role Phone Kee Rodriguez Unavailable Unavailable Procedures Procedure Date Office/outpatient Visit, Est Eye Exam Established Pt Advance Directives Directive Yes / No Effective Date File Name No Information Encounters Encounter Description Practice Location Reason(s) For Visit Diagnoses Date Provider Providers Copied on Encounter Office/outpat ient Visit, [facility], [address] [place] [address] [address], [place], [place], [id number], tel:[phone] [facility] No Information Mar-0 2-201 0 Krishnasamy Kee. [address] [facility] [address] [address], [place], [place], [facility], [place]. tel:[phone] [facility], [address] [place] [address] [address], [place], [place], [id number], tel:[phone] [facility] No Information Nhan-3 0-200 7 David OD Freddy. [address], [place], [place], [facility], [place]. tel:[phone] Family History Family Member Type Diagnosis Age [...]
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
--- NOTE | 2024-04-03 10:06 | PM.EVENT ---
Event Note Event Note Event Note: Patient is on peritoneal dialysis. Fluid in his belly now. His is going to get a bag and drain it and handed into the nurses. His belly is soft and nontender. he was seen at 9:30 a.m.
--- NOTE | 2024-04-03 10:43 | PCRCNOTE ---
This RT attempted twice to obtain ABG. Called for help from another RT. When she's available we will come back to patient and attempt again.
--- NOTE | 2024-04-03 10:45 | PM.IMPN ---
Progress Note: A&P Assessment and Plan (1) Hypertension: Qualifiers: Hypertension type: primary hypertension Qualified Code(s): I10 - Essential (primary) hypertension Code(s): I10 - Essential (primary) hypertension Status: Chronic Assessment and Plan: Stable on current medications, continue current treatmen (2) Anxiety: Code(s): F41.9 - Anxiety disorder, unspecified Status: Acute Assessment and Plan: Stable on current medications, continue current treatmen (3) Hyperlipemia: Code(s): E78.5 - Hyperlipidemia, unspecified Status: Acute Assessment and Plan: Stable on current medications, continue current treatmen Subjective Date/time seen: 04/03/24 10:45 Interval history: Patient was seen during the morning rounds today. No new overnight complaints. Review of Systems Review of Systems: All systems reviewed & are unremarkable except as noted in HPI and below (the history and physical exam) Exam Narrative: Exam Narrative: Well developed well-nourished in no acute distress Skin is warm and dry without rash Head normocephalic atraumatic Neck supple and flexible Eyes normal sclerae and conjunctivae Mouth normal lips teeth and gums Neck no nodes no thyromegaly no carotid bruits Axillae no nodes Back no CVA tenderness Lungs symmetric and clear to auscultation and percussion Heart regular rate and rhythm without rub or gallop Abdomen bowel sounds positive soft nontender, no HSM, masses, or bruits. Extremities no cyanosis, clubbing, or edema Pulses 2+ equal in radial arteries Psychological not anxious or depressed Neuro a bit groggy but oriented x3 motor 5/5 cranial nerves 2-12 intact reflexes 2+ and equal in the biceps and patellar tendons cerebellar normal rapid alternating movements Objective Data Vital Signs Vital Signs: Vital Signs - 24 hr 04/02/24 21:17 04/02/24 21:22 04/02/24 21:23 Temperature 39.5 C H Pulse Rate 87 87 87 Respiratory Rate 23 H 20 18 Blood Pressure 158/74 H 158/74 H Pulse Oximetry 97 98 99 Oxygen Delivery Room Air 04/02/24 21:27 04/02/24 21:30 04/02/24 21:31 Temperature Pulse Rate 88 87 87 Respiratory Rate 22 H 18 Blood Pressure 176/88 H Pulse Oximetry 96 97 Oxygen Delivery 04/02/24 21:36 04/02/24 21:45 04/02/24 21:47 Temperature Pulse Rate 86 85 Respiratory Rate 19 20 Blood Pressure 196/87 H Pulse Oximetry 94 98 99 Oxygen Delivery Room Air 04/02/24 21:49 04/02/24 22:00 04/02/24 22:24 Temperature Pulse Rate 88 88 94 Respiratory Rate 16 21 H Blood Pressure 196/87 H Pulse Oximetry 99 97 Oxygen Delivery 04/02/24 22:25 04/02/24 22:31 04/02/24 22:46 Temperature 39.4 C H 39.4 C H Pulse Rate 87 91 88 Respiratory Rate 20 26 H 19 Blood Pressure 159/62 H 152/85 H 177/88 H Pulse Oximetry 97 97 98 Oxygen Delivery 04/02/24 23:01 04/02/24 23:17 04/02/24 23:32 Temperature Pulse Rate 88 89 88 Respiratory Rate 21 H 24 H 25 H Blood Pressure 175/87 H 183/80 H 187/85 H Pulse Oximetry 98 100 99 Oxygen Delivery 04/03/24 00:00 04/03/24 01:45 04/03/24 02:42 Temperature 38.9 C H Pulse Rate 85 83 Respiratory Rate 23 H 24 H Blood Pressure 179/72 H 177/82 H Pulse Oximetry 100 97 Oxygen Delivery 04/03/24 04:00 04/03/24 08:00 Temperature 37.7 C H Pulse Rate 81 Respiratory Rate 16 Blood Pressure 164/60 H Pulse Oximetry 95 Oxygen Delivery Room Air Intake/Output Intake/Output: Intake & Output 03/31/24 04/01/24 04/02/24 04/03/24 23:59 23:59 23:59 23:59 Intake Total 220 Balance 220 Meds/Results Medications: Active Medications Generic Name Dose Route Start Last Admin Trade Name Freq PRN Reason Stop Dose Admin Hydrocodone Bitart/Acetaminophen 1 tab 04/03/24 10:43 Hydrocodone/Acetaminophen (*Crx) 5-325 Mg Tablet PO Q6H PRN pain (scale score 4-6) Aspirin 81 mg 04/04/24 09:00 Aspirin 81 Mg Enteric Tablet PO DAILY [facility] Atorvastatin Calcium 80 mg 04/03/24 21:00 Atorvastatin 40 Mg Tablet PO HS [facility] Calcium Acetate 2,001 mg 04/03/24 12:00 Calcium Acetate 667 Mg Tablet PO TIDWM [facility] Carvedilol 25 mg 04/03/24 17:00 Carvedilol 25 Mg Tablet PO BID [facility] Clonidine HCl 1 patch 04/10/24 09:00 Clonidine 0.2 Mg/24 Hr Patch TRANSDERM WEEKLY [facility] Fenofibrate 145 mg 04/03/24 10:45 Fenofibrate Nanocrystallized 145 Mg Tablet PO QNOON [facility] Furosemide 160 mg 04/03/24 17:00 Furosemide 80 Mg Tablet PO BID [facility] Gabapentin 300 mg 04/03/24 13:00 Gabapentin 300 Mg Capsule PO TID [facility] Hydralazine HCl 10 mg 04/03/24 13:00 Hydralazine 10 Mg Tablet PO TID [facility] Ceftriaxone Sodium 2 gm in 100 mls @ 200 mls/hr 04/04/24 00:00 Rocephin 2 Gm/Ns 100 Ml IVPB Q24H [facility] Insulin Glargine 30 units 04/03/24 10:45 Insulin Glargine (*Bkc) 100 Units/Ml SUB-Q Q12H [facility] Insulin Glargine 30 units 04/03/24 17:00 Insulin Glargine (*Bkc) 100 Units/Ml SUB-Q BID [facility] Levothyroxine Sodium 112 mcg 04/04/24 09:00 Levothyroxine Sodium 112 Mcg Tablet PO DAILY [facility] Lorazepam 0.5 mg 04/03/24 10:43 Lorazepam (*Crx) 0.5 Mg Tablet PO PRN PRN Anxiety Metoclopramide HCl 10 mg 04/04/24 09:00 Metoclopramide Hcl 10 Mg Tablet PO DAILY [facility] Metolazone 5 mg 04/04/24 09:00 Metolazone 5 Mg Tablet PO DAILY [facility] Non-Formulary Medication 120 mg 04/03/24 17:00 Diltiazem Hcl PO 05/03/24 16:59 BID [facility] Non-Formulary Medication 800 tablet 04/03/24 10:45 Fa-Vit Yzknm-Q-Jlyn-Vitamin D3 [Dialyvite 800-Ultra D] PO 05/03/24 10:44 .noon [facility] Non-Formulary Medication 0 unit 04/03/24 10:45 Insulin Aspart U-100 [Novolog Flexpen U-100 Insulin] .ROUTE 05/03/24 10:44 .COMPLEX [facility] Non-Formulary Medication 1 sliding scale dose 04/03/24 13:00 Insulin Aspart U-100 [Novolog Flexpen U-100 Insulin] SUB-Q 05/03/24 12:59 TID [facility] Non-Formulary Medication 30 mg 04/03/24 17:00 Lansoprazole PO 05/03/24 16:59 BID [facility] Non-Formulary Medication 5 mg 04/03/24 21:00 Tadalafil PO 05/03/24 20:59 HS [facility] Non-Formulary Medication 1 tablet 04/03/24 10:45 Vit C-Vit S-Ps-Qn-Lutein-Zeax [Icaps Areds2 (Copper Citrate)] PO 05/03/24 10:44 Q12H [facility] Vancomycin HCl 125 mg 04/03/24 12:00 Vancomycin Hcl 125 Mg Oral Capsule PO Q6HR [facility] Vitamin D units 04/03/24 10:45 Cholecalciferol 1,000 Units Tablet PO QNOON [facility] Radiology Results: ITS Impressions Chest X-Ray 04/02/24 21:43 IMPRESSION: Mild pulmonary vascular congestion, without focal infiltrate or effusion. Labs Labs: Laboratory Results - last 24 hr 04/02/24 04/02/24 04/02/24 21:59 22:12 22:36 WBC 11.4 H RBC 3.13 L Hgb 9.7 L Hct 29.7 L MCV 94.9 MCH 31.0 MCHC 32.7 RDW 16.0 H Plt Count 176 MPV 10.8 H Immature Gran % (Auto) 2.3 H Neut % (Auto) 78.9 H Lymph % (Auto) 6.1 L Glenn % (Auto) 12.4 H Eos % (Auto) 0.2 Baso % (Auto) 0.1 L Lymph # (Auto) 0.70 L Glenn # (Auto) 1.4 H Eos # (Auto) 0.0 Baso # (Auto) 0.0 Abs Immat Gran (auto) 0.26 H Absolute Neuts (auto) 9.0 H Absolute Nucleated RBC 0.000 Nucleated RBC % 0.0 PT 14.2 INR 1.1 APTT 29.8 Sodium 138 Potassium 3.3 L Chloride 96 L Carbon Dioxide 30 Anion Gap 12 BUN 45 H Creatinine 9.51 H Estim Creat Clear Calc 8 Estimated GFR 6 L Glucose 147 H Lactic Acid 2.1 H Calcium 8.9 Total Bilirubin 0.5 AST 24 ALT 19 Alkaline Phosphatase 69 C-Reactive Protein Cancelled Total Protein 7.0 Albumin 3.3 L Urine Color Yellow Urine Appearance Clear Urine pH 6.5 Ur Specific Mandan 1.011 Urine Protein 2+ H Urine Glucose (UA) 1+ H Urine Ketones Negative Ur Blood (Man) Negative Urine Nitrate Negative Urine Bilirubin Negative Urine Urobilinogen 0.2 Leukocyte Esterase Rfl Trace H Urine RBC 0-2 Urine WBC 6-10 H Ur Squamous Epith Cells None seen Urine Bacteria None seen Urine Casts 0-2 Influenza A (RT-PCR) Negative Influenza B (RT-PCR) Negative RSV (RT-PCR) Negative SARS-CoV-2 RNA (RT-PCR) Negative 04/03/24 05:54 WBC RBC Hgb Hct MCV MCH MCHC RDW Plt Count MPV Immature Gran % (Auto) Neut % (Auto) Lymph % (Auto) Glenn % (Auto) Eos % (Auto) Baso % (Auto) Lymph # (Auto) Glenn # (Auto) Eos # (Auto) Baso # (Auto) Abs Immat Gran (auto) Absolute Neuts (auto) Absolute Nucleated RBC Nucleated RBC % PT INR APTT Sodium Potassium Chloride Carbon Dioxide Anion Gap BUN Creatinine Estim Creat Clear Calc Estimated GFR Glucose Lactic Acid 1.8 Calcium Total Bilirubin AST ALT Alkaline Phosphatase C-Reactive Protein Total Protein Albumin Urine Color Urine Appearance Urine pH Ur Specific Mandan Urine Protein Urine Glucose (UA) Urine Ketones Ur Blood (Man) Urine Nitrate Urine Bilirubin Urine Urobilinogen Leukocyte Esterase Rfl Urine RBC Urine WBC Ur Squamous Epith Cells Urine Bacteria Urine Casts Influenza A (RT-PCR) Influenza B (RT-PCR) RSV (RT-PCR) SARS-CoV-2 RNA (RT-PCR)
--- NOTE | 2024-04-03 10:51 | P.HP_ITS ---
H&P: HPI History of Present Illness Date/Time: 04/03/24 10:51 Chief Complaint: Altered mental status Narrative: 61-year-old male who lives at home with his family, on peritoneal dialysis was brought in ER for evaluation of mental status change. Patient presents here with altered mental status, according to he usually gets slightly cold after dinner and ate it was the same today, but she noticed that he was shivering more and seemed a little slow to words. Patient able to answer some of my questions, including that he has no pain anywhere, nausea or vomiting In the ER blood and urine cultures were done and antibiotic was started. patient was later on transferred to floor for further evaluation treatment. at present time patient is lying comfortably in the bed and according to his he is slightly feeling better and his orientation is also improving. Review of Systems Review of Systems: All systems reviewed & are unremarkable except as noted in HPI and below (the history and physical exam) PMFSH Past Medical History Medical History C. difficile colitis Arthritis Kidney stones Benign prostatic hyperplasia Coronary artery disease End-stage renal disease on peritoneal dialysis Obstructive sleep apnea Insulin dependent type 2 diabetes mellitus Renal cell carcinoma Status post partial left nephrectomy. Dyslipidemia Clostridium difficile infection Gastroesophageal reflux disease Depression with anxiety Hypothyroidism Cirrhosis Pituitary tumor Status post resection. Anemia Chronic diastolic (congestive) heart failure Hypertension Surgical History Surgical History History of open reduction and internal fixation (ORIF) procedure (11/2022) Screw fixation of sternal fracture. History of colonoscopy with polypectomy History of umbilical hernia repair History of inguinal hernia repair History of coronary artery stent placement History of cardiac catheterization (08/2020) Stent x2 to the LAD. History of arthroplasty of right knee History of cataract extraction History of pituitary surgery (11/2021) History of partial nephrectomy Partial left nephrectomy for renal cell carcinoma. History of cholecystectomy (2007) Family History Family History Mother Aneurysm Hypertension Cerebrovascular accident Father Carcinoma of colon Social History Social History Social History: Surrogate medical decision maker: Harriet Carl, spouse. Code status: Full code. Smoking status: Never smoker Second hand tobacco smoke exposure: No Alcohol intake: never Alcohol use details: rare, holidays Substance use: never Substance use type: does not use Do You Feel Safe in your Home?: Yes Lack of Transportation: YES Lack of Food: Never True Current Housing: I Have Housing Concerned About Future Housing: No Difficulty Paying Gas/Electric Bills: No Difficulty Paying for Meds: No Currently Unemployed: No Education: Trade/Vocational Certificate Difficulty w/ Childcare or Family Care: No Living arrangements: with family Additional living arrangements comments: Lives with spouse in [place]. Occupation/Education: retired Additional occupation/education comments: [employer]. Spiritual care concerns: No Agree to blood products: Yes Meds Home Medications and Allergies Home Medications ?Medication ?Instructions ?Recorded ?Confirmed ?Type aspirin 81 mg tablet,delayed 81 mg PO DAILY 02/01/19 04/03/24 History release (Sami Low Dose Aspirin) vit C 250 mg-vit E 200 unit-zinc 1 tablet PO Q12H 02/01/19 04/03/24 History 12.5 mg-copper 1 [id number] tablet (ICaps AREDS2 (copper citrate)) carvedilol 25 mg tablet (Coreg) 25 mg PO BID 09/06/19 04/03/24 History pen needle, diabetic 32 gauge x #200 ea 09/06/19 04/03/24 Rx 1/4 (BD Ultra-Fine Micro Pen Needle) insulin glargine 100 unit/mL (3 30 unit subcut Q12H 10/12/21 04/03/24 History mL) subcutaneous pen (Basaglar KwikPen U-100 Insulin) lisinopril 20 mg tablet 20 mg PO BID 08/12/22 04/03/24 History cholecalciferol (vitamin D3) 125 125 mcg PO QNOON 10/01/22 04/03/24 History mcg (5,000 unit) tablet (Vitamin D3) furosemide 80 mg tablet 160 mg PO BID 10/01/22 04/03/24 History insulin aspart U-100 100 unit/mL See Rx Instructions .Route .COMPLEX 10/01/22 04/03/24 History (3 mL) subcutaneous pen (Novolog FlexPen U-100 Insulin aspart) atorvastatin 80 mg tablet 80 mg PO HS 09/02/23 04/03/24 History diltiazem HCl 120 mg 120 mg PO BID 09/02/23 04/03/24 History capsule,extended release 12 hr levothyroxine 112 mcg tablet 112 mcg PO DAILY 09/02/23 04/03/24 History clonidine 0.2 mg/24 hr weekly 1 patch transdermal WEEKLY 09/25/23 04/03/24 History transdermal patch hydralazine 10 mg tablet 10 mg PO TID 10/15/23 04/03/24 History tadalafil 5 mg tablet 5 mg PO HS 11/15/23 04/03/24 History lansoprazole 30 mg capsule,delayed 30 mg PO BID #60 caps 02/25/24 04/03/24 Rx release calcium acetate(phosphat bind) 667 2,001 mg PO TIDWM 03/13/24 04/03/24 History mg capsule fenofibrate nanocrystallized 145 145 mg PO QNOON 03/13/24 04/03/24 History mg tablet hydrocodone 5 mg-acetaminophen 325 1 tablet PO Q6H PRN pain (scale 03/13/24 04/03/24 History mg tablet score 4-6) metolazone 5 mg tablet 5 mg PO DAILY 03/13/24 04/03/24 History blood sugar diagnostic (OneTouch 04/03/24 04/03/24 History Ultra Test strips) folic acid 0.8 mg-vit B comp with 800 tablet PO .noon 04/03/24 04/03/24 History H-qyby-tjbpapv D3 2,000 unit tablet (Dialyvite 800-Ultra D) gabapentin 100 mg capsule 300 mg PO TID 04/03/24 04/03/24 History insulin aspart U-100 100 unit/mL 1 sliding scale dose subcut TID 04/03/24 04/03/24 History (3 mL) subcutaneous pen (Novolog FlexPen U-100 Insulin aspart) insulin glargine 100 unit/mL (3 30 unit subcut BID 04/03/24 04/03/24 History mL) subcutaneous pen (Basaglar KwikPen U-100 Insulin) lorazepam 0.5 mg tablet (Ativan) 0.5 mg PO PRN PRN Anxiety 04/03/24 04/03/24 History metoclopramide HCl 10 mg tablet 10 mg PO DAILY 04/03/24 04/03/24 History (Reglan) Allergies Allergy/AdvReac Type Severity Reaction Status Date / Time oxycodone AdvReac Unknown Hallucinati Verified 03/31/24 13:32 ng Vital Signs Vital Signs - 24 hr 04/02/24 21:17 04/02/24 21:22 04/02/24 21:23 Temperature 39.5 C H Pulse Rate 87 87 87 Respiratory Rate 23 H 20 18 Blood Pressure 158/74 H 158/74 H Pulse Oximetry 97 98 99 Oxygen Delivery Room Air 04/02/24 21:27 04/02/24 21:30 04/02/24 21:31 Temperature Pulse Rate 88 87 87 Respiratory Rate 22 H 18 Blood Pressure 176/88 H Pulse Oximetry 96 97 Oxygen Delivery 04/02/24 21:36 04/02/24 21:45 04/02/24 21:47 Temperature Pulse Rate 86 85 Respiratory Rate 19 20 Blood Pressure 196/87 H Pulse Oximetry 94 98 99 Oxygen Delivery Room Air 04/02/24 21:49 04/02/24 22:00 04/02/24 22:24 Temperature Pulse Rate 88 88 94 Respiratory Rate 16 21 H Blood Pressure 196/87 H Pulse Oximetry 99 97 Oxygen Delivery 04/02/24 22:25 04/02/24 22:31 04/02/24 22:46 Temperature 39.4 C H 39.4 C H Pulse Rate 87 91 88 Respiratory Rate 20 26 H 19 Blood Pressure 159/62 H 152/85 H 177/88 H Pulse Oximetry 97 97 98 Oxygen Delivery 04/02/24 23:01 04/02/24 23:17 04/02/24 23:32 Temperature Pulse Rate 88 89 88 Respiratory Rate 21 H 24 H 25 H Blood Pressure 175/87 H 183/80 H 187/85 H Pulse Oximetry 98 100 99 Oxygen Delivery 04/03/24 00:00 04/03/24 01:45 04/03/24 02:42 Temperature 38.9 C H Pulse Rate 85 83 Respiratory Rate 23 H 24 H Blood Pressure 179/72 H 177/82 H Pulse Oximetry 100 97 Oxygen Delivery 04/03/24 04:00 04/03/24 08:00 Temperature 37.7 C H Pulse Rate 81 Respiratory Rate 16 Blood Pressure 164/60 H Pulse Oximetry 95 Oxygen Delivery Room Air Exam Narrative: Exam Narrative: Well developed well-nourished in no acute distress Skin is warm and dry without rash Head normocephalic atraumatic Neck supple and flexible Eyes normal sclerae and conjunctivae Mouth normal lips teeth and gums Neck no nodes no thyromegaly no carotid bruits Axillae no nodes Back no CVA tenderness Lungs symmetric and clear to auscultation and percussion Heart regular rate and rhythm without rub or gallop Abdomen bowel sounds positive soft nontender, no HSM, masses, or bruits. Extremities no cyanosis, clubbing, or edema Pulses 2+ equal in radial arteries Psychological not anxious or depressed Neuro a bit groggy but oriented x3 motor 5/5 cranial nerves 2-12 intact reflexes 2+ and equal in the biceps and patellar tendons cerebellar normal rapid alternating movements H&P: Results Labs Labs: Short CBC 04/02/24 Range/Units 22:12 WBC 11.4 H (4.5-10.0) K/mm3 Hgb 9.7 L (14.0-18.0) g/dL Hct 29.7 L (42.0-52.0) % Plt Count 176 (150-375) k/mm3 BMP 04/02/24 22:12 Sodium 138 Potassium 3.3 L Chloride 96 L Carbon Dioxide 30 BUN 45 H Creatinine 9.51 H Glucose 147 H Calcium 8.9 Liver Function 04/02/24 Range/Units 22:12 Total Bilirubin 0.5 (0.2-1.3) mg/dL AST 24 (17-59) U/L ALT 19 (6-50) U/L Alkaline Phosphatase 69 (38-126) U/L Albumin 3.3 L (3.5-5.1) g/dL Urine 04/02/24 Range/Units 22:36 Urine Color Yellow (Yellow) Urine Appearance Clear (Clear) Urine pH 6.5 (5.0-9.0) Ur Specific [place] 1.011 (1.001-1.035) Urine Protein 2+ H (Negative) mg/dL Urine Glucose (UA) 1+ H (Negative) mg/dL Assessment and Plan Assessment and plan (1) Hypertension: Qualifiers: Hypertension type: primary hypertension Qualified Code(s): I10 - Essential (primary) hypertension Code(s): I10 - Essential (primary) hypertension Status: Chronic Assessment and Plan: Stable on current medications, continue current treatmen (2) Anxiety: Code(s): F41.9 - Anxiety disorder, unspecified Status: Acute Assessment and Plan: Stable on current medications, continue current treatmen (3) Hyperlipemia: Code(s): E78.5 - Hyperlipidemia, unspecified Status: Acute Assessment and Plan: Stable on current medications, continue current treatmen (4) Altered mental status: Code(s): R41.82 - Altered mental status, unspecified Status: Acute Assessment and Plan: blood and urine culture. Start IV antibiotics. CT head noncontrast. (5) End-stage renal disease on peritoneal dialysis: Code(s): N18.6 - End stage renal disease; Z99.2 - Dependence on renal dialysis Status: Chronic Assessment and Plan: Continue with dialysis. Nephrology consult noted (6) C. difficile colitis: Code(s): A04.72 - Enterocolitis due to Clostridium difficile, not specified as recurrent Status: Acute Assessment and Plan: continue vancomycin. (7) Diabetes mellitus: Code(s): E11.9 - Type 2 diabetes mellitus without complications Status: Chronic Assessment and Plan: Stable on current medication, will continue current treatment. Plan Patient is admitted as a full admit on medical floor. Code status full. DVT prophylaxis ordered. Quality VTE Prophylaxis VTE prophylaxis: pharmacologic ordered
--- NOTE | 2024-04-03 11:20 | PCRCNOTE ---
RT Adelia Baker attempted ABG twice as well and unable to obtain specimen. RT Itzel attemped to call Dr. Mccall to notify of 4 attempts and no answer. Will try again to call.
[2024-04-03 11:30] LABS: Ammonia < 9 umol/L (9-30)
[2024-04-03] MEDS: dilTIAZem HCL CD 120 MG CAP.24HR PO ×2 (11:57→21:07)
[2024-04-03] MEDS: FUROSEMIDE 80 MG TABLET 160 MG PO ×2 (11:57→16:06)
[2024-04-03] MEDS: VITAMIN B CMPLX/VIT C/FOLIC AC 1 CAPSULE 1 CAP PO (11:57)
[2024-04-03] MEDS: PANTOPRAZOLE 40 MG TABLET PO ×2 (11:58→21:07)
[2024-04-03] MEDS: CALCIUM ACETATE 667 MG TABLET 2001 MG PO ×2 (11:58→16:07)
[2024-04-03] MEDS: OPTI-GEN TAB 1 TABLET PO ×2 (11:58→21:07)
[2024-04-03] MEDS: VANCOMYCIN HCL 125 MG ORAL CAPSULE PO ×3 (11:58→23:43)
[2024-04-03] MEDS: carvediloL 25 MG TABLET PO ×2 (11:58→21:07)
[2024-04-03] MEDS: metOLazone 5 MG TABLET PO (11:58)
[2024-04-03] MEDS: lisinopriL 20 MG TABLET PO ×2 (11:58→21:07)
[2024-04-03] MEDS: METOCLOPRAMIDE HCL 10 MG TABLET PO (11:58)
[2024-04-03] MEDS: FENOFIBRATE NANOCRYSTALLIZED 145 MG TABLET PO (11:58)
[2024-04-03] MEDS: HEPARIN SODIUM 5,000 UNITS/ML VIAL 5000 UNITS SUB-Q ×2 (11:59→21:07)
[2024-04-03] MEDS: CHOLECALCIFEROL 5,000 UNITS TABLET 5000 UNITS BY MOUTH (11:59)
[2024-04-03] MEDS: LEVOTHYROXINE SODIUM 112 MCG TABLET PO (11:59)
[2024-04-03] MEDS: ASPIRIN 81 MG ENTERIC TABLET PO (11:59)
[2024-04-03] MEDS: INSULIN GLARGINE (*BKC) 100 UNITS/ML 30 UNITS SUB-Q ×2 (12:10→21:14)
[2024-04-03] MEDS: hydrALAZINE 10 MG TABLET PO ×2 (12:10→16:07)
[2024-04-03] MEDS: GABAPENTIN 300 MG CAPSULE PO ×2 (12:10→16:07)
[2024-04-03 12:53] LABS: Folic Acid > 20.0 ng/mL (2.76->20)
[2024-04-03 13:33] LABS: Source Peritoneal Fluid Peritoneal Fluid
[2024-04-03 13:34] LABS: Appearance Peritoneal Fluid Clear (Clear); Color Peritoneal Fluid Yellow (Colorless); Macrophages Peritoneal Fluid 1 %; Monocytes Peritoneal Fluid 42 %; Neutrophils Peritoneal Fluid 15 % (0-25); Nucleated Cells Peritoneal Flu 42 /uL (0-500); RBC Peritoneal Fluid < 2000 /uL (0-10000)
[2024-04-03 14:25] LABS: Toxigenic C. Diff NEGATIVE (NEGATIVE)
[2024-04-03 15:37] VITALS: BP 155/64; PULSE 71; RESP 16; TEMP 37.1; O2SAT 91
[2024-04-03 16:53] LABS: Glucose Point of Care 123 mg/dl (65-105)
--- NOTE | 2024-04-03 18:00 | PC.NURSE ---
Relocated to room 303 per hospital bed. Belongings sent and verified. Spouse at bedside.
[2024-04-03] MEDS: ATORVASTATIN 40 MG TABLET 80 MG PO (21:06)
[2024-04-03 21:07] LABS: Glucose Point of Care 129 mg/dl (65-105)
[2024-04-03 21:55] VITALS: BP 160/68; PULSE 75; RESP 22; TEMP 36.9; O2SAT 92
[2024-04-03] MEDS: WATER FOR IRRIGATION, STERILE 1,000 ML BOTTLE 1000 ML (22:00)
[2024-04-04] VITALS (8 sets, daily range): BP systolic 110–149; BP diastolic 50–71; PULSE 69–78; RESP 16–24; TEMP 37.1–37.8; O2SAT 90–94
[2024-04-04 03:21] LABS: Glucose Point of Care 240 mg/dl (65-105)
[2024-04-04] MEDS: VANCOMYCIN HCL 125 MG ORAL CAPSULE PO ×3 (06:06→18:45)
[2024-04-04] MEDS: METOCLOPRAMIDE HCL 10 MG TABLET PO (06:06)
[2024-04-04] MEDS: LEVOTHYROXINE SODIUM 112 MCG TABLET PO (06:07)
[2024-04-04 07:35] LABS: Basophils Percent Auto 0.2 % (0.2-1.2); Eosinophils Percent Auto 0.4 % (0-4.4); Hematocrit 28.9 % (42.0-52.0); Hemoglobin 9.3 g/dL (14.0-18.0); Immature Granulocyte Absolute 0.22 K/mm3 (0.00-0.031); Immature Granulocyte Percent A 2.4 % (0-0.5); Lymphocytes Absolute Auto 0.41 K/mm3 (0.9-3.2); Lymphocytes Percent Auto 4.5 % (18.3-44.2); Mean Corpuscular HGB Conc 32.2 g/dl (32-36); Mean Corpuscular Hemoglobin 30.9 pg (26-34); Mean Platelet Volume 11.5 fl (7.4-10.4); Neutrophils Absolute Auto 7.5 K/mm3 (1.3-6.7); Neutrophils Percent Auto 81.5 % (45.5-73.1); Platelet Count Result 182 k/mm3 (150-375); Red Blood Count 3.01 M/mm3 (4.6-6.20); White Blood Count 9.2 K/mm3 (4.5-10.0)
[2024-04-04 07:47] LABS: Albumin Level 3.1 g/dL (3.5-5.1); Anion Gap 14 mmol/L (4-12); Blood Urea Nitrogen 47 mg/dL (9-20); Calcium 9.2 mg/dL (8.4-10.2); Carbon Dioxide 26 mmol/L (22-30); Chloride 96 mmol/L (98-107); Estimated CRCL calculation 8 ml/min; Estimated Glomerular Filt Rate 5; Glucose 238 mg/dL (65-110); Phosphorus 4.9 mg/dL (2.5-4.5); Potassium 3.2 mmol/L (3.4-5.0); Sodium 136 mmol/L (137-145)
[2024-04-04 08:20] LABS: Glucose Point of Care 240 mg/dl (65-105)
--- NOTE | 2024-04-04 09:17 | PM.IMPN ---
Progress Note: A&P Assessment and Plan (1) Altered mental status: Code(s): R41.82 - Altered mental status, unspecified Status: Acute Assessment and Plan: blood and urine culture. Start IV antibiotics. CT head noncontrast Negative. (2) Hypertension: Qualifiers: Hypertension type: primary hypertension Qualified Code(s): I10 - Essential (primary) hypertension Code(s): I10 - Essential (primary) hypertension Status: Chronic Assessment and Plan: Stable on current medications, continue current treatmen (3) Anxiety: Code(s): F41.9 - Anxiety disorder, unspecified Status: Acute Assessment and Plan: Stable on current medications, continue current treatmen (4) Hyperlipemia: Code(s): E78.5 - Hyperlipidemia, unspecified Status: Acute Assessment and Plan: Stable on current medications, continue current treatmen (5) End-stage renal disease on peritoneal dialysis: Code(s): N18.6 - End stage renal disease; Z99.2 - Dependence on renal dialysis Status: Chronic Assessment and Plan: Continue with dialysis. Nephrology consult noted (6) C. difficile colitis: Code(s): A04.72 - Enterocolitis due to Clostridium difficile, not specified as recurrent Status: Acute Assessment and Plan: continue vancomycin. (7) Diabetes mellitus: Code(s): E11.9 - Type 2 diabetes mellitus without complications Status: Chronic Assessment and Plan: Stable on current medication, will continue current treatment. Plan Case discussed with family in detail. Labs and x-ray report discussed in detail. Antibiotic increased to vanco and Zosyn. Will continue monitor. Code status full. DVT prophylaxis ordered. Subjective Date/time seen: 04/04/24 09:17 Interval history: Patient was seen during the morning rounds today. Patient was admitted for altered mental status. No new overnight complaints. No shortness of breath, no chest pain. Mild abdominal pain, nausea, no vomiting. Review of Systems Review of Systems: All systems reviewed & are unremarkable except as noted in HPI and below (the history and physical exam) Exam Narrative: Exam Narrative: Well developed well-nourished in no acute distress Skin is warm and dry without rash Head normocephalic atraumatic Neck supple and flexible Eyes normal sclerae and conjunctivae Mouth normal lips teeth and gums Neck no nodes no thyromegaly no carotid bruits Axillae no nodes Back no CVA tenderness Lungs symmetric and clear to auscultation and percussion Heart regular rate and rhythm without rub or gallop Abdomen bowel sounds positive soft nontender, no HSM, masses, or bruits. Peritoneal dialysis catheter. Extremities no cyanosis, clubbing, or edema Pulses 2+ equal in radial arteries Psychological not anxious or depressed Neuro a bit groggy but oriented x3 motor 5/5 cranial nerves 2-12 intact reflexes 2+ and equal in the biceps and patellar tendons cerebellar normal rapid alternating movements Objective Data Vital Signs Vital Signs: Vital Signs - 24 hr 04/03/24 15:37 04/03/24 21:55 04/04/24 05:53 Temperature 37.1 C 36.9 C 37.8 C H Pulse Rate 71 75 77 Respiratory Rate 16 22 H 24 H Blood Pressure 155/64 H 160/68 H 134/55 L Pulse Oximetry 91 92 90 Intake/Output Intake/Output: Intake & Output 04/01/24 04/02/24 04/03/24 04/04/24 23:59 23:59 23:59 23:59 Intake Total 560 650 Output Total 450 150 Balance 110 500 Meds/Results Medications: Active Medications Generic Name Dose Route Start Last Admin Trade Name Freq PRN Reason Stop Dose Admin Acetaminophen 650 mg 04/04/24 06:50 Acetaminophen 325 Mg Tablet PO Q4H PRN Fever Hydrocodone Bitart/Acetaminophen 1 tab 04/03/24 10:43 Hydrocodone/Acetaminophen (*Crx) 5-325 Mg Tablet PO Q6H PRN pain (scale score 4-6) Aspirin 81 mg 04/03/24 10:55 04/03/24 11:59 Aspirin 81 Mg Enteric Tablet PO 81 mg DAILY JERMAINE Administration Atorvastatin Calcium 80 mg 04/03/24 21:00 04/03/24 21:06 Atorvastatin 40 Mg Tablet PO 80 mg HS JERMAINE Administration Calcium Acetate 2,001 mg 04/03/24 12:00 04/03/24 16:07 Calcium Acetate 667 Mg Tablet PO 2,001 mg TIDWM JERMAINE Administration Carvedilol 25 mg 04/03/24 10:55 04/03/24 21:07 Carvedilol 25 Mg Tablet PO 25 mg Q12HR JERMAINE Administration Clonidine HCl 1 patch 04/16/24 09:00 Clonidine 0.2 Mg/24 Hr Patch TRANSDERM Fr@0900 JERMAINE Dextrose 12.5 gm 04/03/24 11:32 Dextrose 50% 25 Gm/50 Ml Syringe IV PUSH PRN PRN Hypoglycemia Protocol Diltiazem HCl 120 mg 04/03/24 11:30 04/03/24 21:07 Diltiazem Hcl Cd 120 Mg Cap.24hr PO 120 mg Q12HR JERMAINE Administration Fenofibrate 145 mg 04/03/24 12:00 04/03/24 11:58 Fenofibrate Nanocrystallized 145 Mg Tablet PO 145 mg DAILY@1200 JERMAINE Administration Furosemide 160 mg 04/03/24 11:20 04/03/24 16:06 Furosemide 80 Mg Tablet PO 160 mg BID@0800,1400 JERMAINE Administration Gabapentin 300 mg 04/03/24 13:00 04/03/24 16:07 Gabapentin 300 Mg Capsule PO 300 mg TID JERMAINE Administration Glucagon 1 mg 04/03/24 11:32 Glucagon For Inj 1 Mg Vial IM PRN PRN Hypoglycemia Protocol Glucose 15 gm 04/03/24 11:32 Glucose Oral Gel 15 Gm Of Glucse In 37.5 Gm Tube PO PRN PRN Hypoglycemia Protocol Heparin Sodium (Porcine) 5,000 units 04/03/24 11:30 04/03/24 21:07 Heparin Sodium 5,000 Units/Ml Vial SUB-Q 5,000 units Q12HR JERMAINE Administration Hydralazine HCl 10 mg 04/03/24 13:00 04/03/24 16:07 Hydralazine 10 Mg Tablet PO 10 mg TID JERMAINE Administration Dextrose 1,000 mls @ 100 mls/hr 04/03/24 11:32 Dextrose 5% 1,000 Ml IVPB PRN PRN Hypoglycemia Protocol Piperacillin Sod/Tazobactam Sod 2.25 gm in 50 mls @ 100 mls/hr 04/04/24 08:40 Zosyn 2.25 Gm/Ns 50 Ml IVPB Q8HR [facility] Insulin Aspart 2 - 5 units 04/03/24 12:00 04/03/24 16:47 Insulin Aspart (*Bkc) 100 Units/Ml SUB-Q Not Given TIDWM [facility] Protocol Insulin Aspart 1 - 2 units 04/03/24 21:00 04/03/24 21:13 Insulin Aspart (*Bkc) 100 Units/Ml SUB-Q Not Given HS [facility] Protocol Insulin Glargine 30 units 04/03/24 11:20 04/03/24 21:14 Insulin Glargine (*Bkc) 100 Units/Ml SUB-Q 30 units Q12HR JERMAINE Administration Levothyroxine Sodium 112 mcg 04/03/24 11:20 04/04/24 06:07 Levothyroxine Sodium 112 Mcg Tablet PO 112 mcg DAILY@0630 JERMAINE Administration Lisinopril 20 mg 04/03/24 11:20 04/03/24 21:07 Lisinopril 20 Mg Tablet PO 20 mg Q12HR JERMAINE Administration Lorazepam 0.5 mg 04/03/24 11:37 Lorazepam (*Crx) 0.5 Mg Tablet PO Q6H PRN Anxiety Metoclopramide HCl 10 mg 04/03/24 11:25 04/04/24 06:06 Metoclopramide Hcl 10 Mg Tablet PO 10 mg DAILY@0630 [facility] Administration Metolazone 5 mg 04/03/24 11:25 04/03/24 11:58 Metolazone 5 Mg Tablet PO 5 mg DAILY JERMAINE Administration Multivitamins/Minerals 1 tablet 04/03/24 10:45 04/03/24 21:07 Opti-Gen Tab PO 1 tablet Q12HR [facility] Administration Pantoprazole Sodium 40 mg 04/03/24 11:20 04/03/24 21:07 Pantoprazole 40 Mg Tablet PO 40 mg Q12HR [facility] Administration Potassium Chloride 10 meq 04/05/24 08:00 Potassium Chloride 10 Meq Er Tablet PO DAILY@0800 [facility] Vancomycin HCl 125 mg 04/03/24 12:00 04/04/24 06:06 Vancomycin Hcl 125 Mg Oral Capsule PO 125 mg Q6HR [facility] Administration Vancomycin HCl 1 each 04/04/24 08:25 Vancomycin Pharmacist To Dose IVPB PER PROTOCOL [facility] Vitamin B Complex/Folic Acid 1 cap 04/03/24 12:00 04/03/24 11:57 Vitamin B Cmplx/Vit C/Folic Ac 1 Capsule PO 1 cap DAILY@1200 [facility] Administration Vitamin D 5,000 units 04/03/24 12:00 04/03/24 11:59 Cholecalciferol 5,000 Units Tablet BY MOUTH 5,000 units DAILY@1200 [facility] Administration Radiology Results: ITS Impressions Chest X-Ray 04/02/24 21:43 IMPRESSION: Mild pulmonary vascular congestion, without focal infiltrate or effusion. Head CT 04/03/24 19:54 Impression: No acute intracranial hemorrhage or suspicious mass effect. Inflammatory sinus disease. Labs Labs: Laboratory Results - last 24 hr 04/03/24 04/03/24 04/03/24 11:12 11:15 13:13 WBC RBC Hgb Hct MCV MCH MCHC RDW Plt Count MPV Immature Gran % (Auto) Neut % (Auto) Lymph % (Auto) [place] % (Auto) Eos % (Auto) Baso % (Auto) Lymph # (Auto) [place] # (Auto) Eos # (Auto) Baso # (Auto) Abs Immat Gran (auto) Absolute Neuts (auto) Absolute Nucleated RBC Nucleated RBC % Sodium Potassium Chloride Carbon Dioxide Anion Gap BUN Creatinine Estim Creat Clear Calc Estimated GFR Glucose POC Capillary Glucose Calcium Phosphorus Ammonia < 9 L Albumin Vitamin B12 353.0 Folate > 20.0 H TSH (Reflex) 1.360 Peritoneal Source Peritoneal fluid Peritoneal Color Yellow Peritoneal Appearance Clear Peritoneal RBC < 2000 [place] Nuc Cells 42 [place] Neutrophils 15 [place] Lymphocytes 0 Peritoneal Monocytes 42 Peritoneal Eosinophils 42 [place] Macrophages 1 C. difficile (PCR) Negative 04/03/24 04/03/24 04/04/24 16:43 19:58 03:19 WBC RBC Hgb Hct MCV MCH MCHC RDW Plt Count MPV Immature Gran % (Auto) Neut % (Auto) Lymph % (Auto) [place] % (Auto) Eos % (Auto) Baso % (Auto) Lymph # (Auto) [place] # (Auto) Eos # (Auto) Baso # (Auto) Abs Immat Gran (auto) Absolute Neuts (auto) Absolute Nucleated RBC Nucleated RBC % Sodium Potassium Chloride Carbon Dioxide Anion Gap BUN Creatinine Estim Creat Clear Calc Estimated GFR Glucose POC Capillary Glucose 123 H 129 H 240 H Calcium Phosphorus Ammonia Albumin Vitamin B12 Folate TSH (Reflex) Peritoneal Source Peritoneal Color Peritoneal Appearance Peritoneal RBC Periton Nuc Cells Periton Neutrophils Periton Lymphocytes Peritoneal Monocytes Peritoneal Eosinophils Periton Macrophages C. difficile (PCR) 04/04/24 04/04/24 06:42 08:11 WBC 9.2 RBC 3.01 L Hgb 9.3 L Hct 28.9 L MCV 96.0 MCH 30.9 MCHC 32.2 RDW 16.0 H Plt Count 182 MPV 11.5 H Immature Gran % (Auto) 2.4 H Neut % (Auto) 81.5 H Lymph % (Auto) 4.5 L [place] % (Auto) 11.0 H Eos % (Auto) 0.4 Baso % (Auto) 0.2 Lymph # (Auto) 0.41 L [place] # (Auto) 1.0 H Eos # (Auto) 0.0 Baso # (Auto) 0.0 Abs Immat Gran (auto) 0.22 H Absolute Neuts (auto) 7.5 H Absolute Nucleated RBC 0.000 Nucleated RBC % 0.0 Sodium 136 L Potassium 3.2 L Chloride 96 L Carbon Dioxide 26 Anion Gap 14 H BUN 47 H Creatinine 10.03 H Estim Creat Clear Calc 8 Estimated GFR 5 L Glucose 238 H POC Capillary Glucose 240 H Calcium 9.2 Phosphorus 4.9 H Ammonia Albumin 3.1 L Vitamin B12 Folate TSH (Reflex) Peritoneal Source Peritoneal Color Peritoneal Appearance Peritoneal RBC Periton Nuc Cells Periton Neutrophils Periton Lymphocytes Peritoneal Monocytes Peritoneal Eosinophils Periton Macrophages C. difficile (PCR) Quality VTE Prophylaxis VTE prophylaxis: pharmacologic ordered
[2024-04-04] MEDS: FUROSEMIDE 80 MG TABLET 160 MG PO (09:34)
[2024-04-04] MEDS: carvediloL 25 MG TABLET PO ×2 (09:35→20:36)
[2024-04-04] MEDS: dilTIAZem HCL CD 120 MG CAP.24HR PO ×2 (09:35→20:35)
[2024-04-04] MEDS: PIPERACILLIN/TAZ 2.25G/NS 50ML 2.25 GM/50 ML BAG IVPB ×2 (09:36→15:07)
[2024-04-04] MEDS: ACETAMINOPHEN 325 MG TABLET 650 MG PO (09:36)
[2024-04-04] MEDS: lisinopriL 20 MG TABLET PO ×2 (09:52→20:34)
[2024-04-04] MEDS: hydrALAZINE 10 MG TABLET PO (09:52)
[2024-04-04] MEDS: INSULIN GLARGINE (*BKC) 100 UNITS/ML 30 UNITS SUB-Q ×2 (09:58→20:47)
[2024-04-04] MEDS: HEPARIN SODIUM 5,000 UNITS/ML VIAL 5000 UNITS SUB-Q ×2 (10:00→20:37)
--- NOTE | 2024-04-04 10:07 | P.PNNP_ITS ---
Progress Note: A&P Assessment and Plan (1) Sepsis: Code(s): A41.9 - Sepsis, unspecified organism Status: Acute Assessment and Plan: the patient has criteria for sepsis including high lactic acid level, high wh ite count, fever. urine and blood cultures are negative. PD fluid is clear and cell count okay. CT of the head shows no intracranial hemorrhage or suspicious mass effect. He does have inflammatory sinus disease He has been on ceftriaxone And this was switched to Zosyn. He is also on vancomycin His neck is not stiff. He has no pulmonary symptoms or GI symptoms to point there. No joint issues. No skin rash. No recent changes in medications. He does have recurrent sinus issues. Perhaps a could include a view of the sinuses when they do brain imaging. temperature is down to 101. White count is normal now. continuing antibiotics. Consider lumbar puncture? (2) Acute hypokalemia: Code(s): E87.6 - Hypokalemia Status: Acute Assessment and Plan: Potassium is mildly low. Will give a dose of potassium (3) End-stage renal disease on peritoneal dialysis: Code(s): N18.6 - End stage renal disease; Z99.2 - Dependence on renal dialysis Status: Acute Assessment and Plan: the patient is on peritoneal dialysis the treatment went well. Fluid is clear. About a L was removed. 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 No chest pain or shortness of breath (8) Hypertension: Qualifiers: Hypertension type: primary hypertension Qualified Code(s): I10 - Essential (primary) hypertension Code(s): I10 - Essential (primary) hypertension Status: Chronic Assessment and Plan: blood pressure is coming down with reinstitution of his medications. (9) Hyperlipemia: Code(s): E78.5 - Hyperlipidemia, unspecified Status: Acute Assessment and Plan: he takes a statin (10) Hypothyroid: Code(s): E03.9 - Hypothyroidism, unspecified Status: Acute Assessment and Plan: he is on thyroid (11) Lethargy: Code(s): R53.83 - Other fatigue Status: Acute Assessment and Plan: Temperature is down but still has lethargy. Ammonia level, B12, folic acid are all okay. CT brain is okay. Blood gas ordered but not done yet. Consider neuro consult? (12) C. difficile colitis: Code(s): A04.72 - Enterocolitis due to Clostridium difficile, not specified as recurrent Status: Acute Assessment and Plan: the patient was recently diagnosed with C diff. will place him on oral vanco to prevent the C diff from coming back with the broad-spectrum antibiotics. Subjective Date/time seen: 04/04/24 10:07 Interval history: Patient is still lethargic. Not answering all questions. He does recognize his . He follows some commands but fatigues easily. Review of Systems Cardiovascular: Cardiovascular: Reports no additional cardiovascular complaints Respiratory: Respiratory: Reports no additional respiratory complaints Gastrointestinal: Gastrointestinal: Reports no additional gastrointestinal com plaints Genitourinary: Genitourinary: Reports no additional male genitourinary complaints Exam Narrative: WDWN Male lethargic but in NAD skin no rash head ncat lungs clear cor reg no rub abd BS+ nontender and soft ext no edema Neck not stiff neuro lethargic. Motor 4/5 mostly through effort cut symmetric. Cranial nerves look intact. Objective Data Vital Signs Vital Signs: Vital Signs - 24 hr 04/03/24 15:37 04/03/24 21:55 04/04/24 05:53 Temperature 98.8 F 98.5 F 100.1 F H Pulse Rate 71 75 77 Respiratory Rate 16 22 H 24 H Blood Pressure 155/64 H 160/68 H 134/55 L Pulse Oximetry 91 92 90 04/04/24 09:35 04/04/24 09:36 Temperature 99.0 F Pulse Rate 78 Respiratory Rate Blood Pressure Pulse Oximetry Intake/Output Intake/Output: Intake & Output 04/01/24 04/02/24 04/03/24 04/04/24 23:59 23:59 23:59 23:59 Intake Total 560 650 Output Total 450 150 Balance 110 500 Meds/Results Medications: Active Medications Generic Name Dose Route Start Last Admin Trade Name Freq PRN Reason Stop Dose Admin Acetaminophen 650 mg 04/04/24 06:50 04/04/24 09:36 Acetaminophen 325 Mg Tablet PO 650 mg Q4H PRN Administration Fever Hydrocodone Bitart/Acetaminophen 1 tab 04/03/24 10:43 Hydrocodone/Acetaminophen (*Crx) 5-325 Mg Tablet PO Q6H PRN pain (scale score 4-6) Aspirin 81 mg 04/03/24 10:55 04/04/24 09:35 Aspirin 81 Mg Enteric Tablet PO Not Given DAILY JERMAINE Atorvastatin Calcium 80 mg 04/03/24 21:00 04/03/24 21:06 Atorvastatin 40 Mg Tablet PO 80 mg HS JERMAINE Administration Calcium Acetate 2,001 mg 04/03/24 12:00 04/04/24 09:33 Calcium Acetate 667 Mg Tablet PO Not Given TIDWM JERMAINE Carvedilol 25 mg 04/03/24 10:55 04/04/24 09:35 Carvedilol 25 Mg Tablet PO 25 mg Q12HR JERMAINE Administration Clonidine HCl 1 patch 04/16/24 09:00 Clonidine 0.2 Mg/24 Hr Patch TRANSDERM Fr@0900 [facility] Dextrose 12.5 gm 04/03/24 11:32 Dextrose 50% 25 Gm/50 Ml Syringe IV PUSH PRN PRN Hypoglycemia Protocol Diltiazem HCl 120 mg 04/03/24 11:30 04/04/24 09:35 Diltiazem Hcl Cd 120 Mg Cap.24hr PO 120 mg Q12HR JERMAINE Administration Fenofibrate 145 mg 04/03/24 12:00 04/03/24 11:58 Fenofibrate Nanocrystallized 145 Mg Tablet PO 145 mg DAILY@1200 [facility] Administration Furosemide 160 mg 04/03/24 11:20 04/04/24 09:34 Furosemide 80 Mg Tablet PO 160 mg BID@0800,1400 [facility] Administration Gabapentin 300 mg 04/03/24 13:00 04/04/24 09:48 Gabapentin 300 Mg Capsule PO Not Given TID JER[facility]INE Glucagon 1 mg 04/03/24 11:32 Glucagon For Inj 1 Mg Vial IM PRN PRN Hypoglycemia Protocol Glucose 15 gm 04/03/24 11:32 Glucose Oral Gel 15 Gm Of Glucse In 37.5 Gm Tube PO PRN PRN Hypoglycemia Protocol Heparin Sodium (Porcine) 5,000 units 04/03/24 11:30 04/04/24 10:00 Heparin Sodium 5,000 Units/Ml Vial SUB-Q 5,000 units Q12HR JERMAINE Administration Hydralazine HCl 10 mg 04/03/24 13:00 04/04/24 09:52 Hydralazine 10 Mg Tablet PO 10 mg TID JERMAINE Administration Dextrose 1,000 mls @ 100 mls/hr 04/03/24 11:32 Dextrose 5% 1,000 Ml IVPB PRN PRN Hypoglycemia Protocol Piperacillin Sod/Tazobactam Sod 2.25 gm in 50 mls @ 100 mls/hr 04/04/24 08:40 04/04/24 09:36 Zosyn 2.25 Gm/Ns 50 Ml IVPB 100 mls/hr Q8HR JERMAINE Administration Vancomycin HCl 2,000 mg in 500 mls @ 250 mls/hr 04/04/24 10:00 Vancomycin 2,000 Mg/Ns 500 Ml IVPB 04/04/24 11:59 ONCE ONE Insulin Aspart 2 - 5 units 04/03/24 12:00 04/04/24 09:29 Insulin Aspart (*Bkc) 100 Units/Ml SUB-Q Not Given TIDWM [facility] Protocol Insulin Aspart 1 - 2 units 04/03/24 21:00 04/03/24 21:13 Insulin Aspart (*Bkc) 100 Units/Ml SUB-Q Not Given HS [facility] Protocol Insulin Glargine 30 units 04/03/24 11:20 04/04/24 09:58 Insulin Glargine (*Bkc) 100 Units/Ml SUB-Q 30 units Q12HR JERMAINE Administration Levothyroxine Sodium 112 mcg 04/03/24 11:20 04/04/24 06:07 Levothyroxine Sodium 112 Mcg Tablet PO 112 mcg DAILY@0630 [facility] Administration Lisinopril 20 mg 04/03/24 11:20 04/04/24 09:52 Lisinopril 20 Mg Tablet PO 20 mg Q12HR [facility] Administration Lorazepam 0.5 mg 04/03/24 11:37 Lorazepam (*Crx) 0.5 Mg Tablet PO Q6H PRN Anxiety Metoclopramide HCl 10 mg 04/03/24 11:25 04/04/24 06:06 Metoclopramide Hcl 10 Mg Tablet PO 10 mg DAILY@0630 [facility] Administration Metolazone 5 mg 04/03/24 11:25 04/03/24 11:58 Metolazone 5 Mg Tablet PO 5 mg DAILY [facility] Administration Multivitamins/Minerals 1 tablet 04/03/24 10:45 04/04/24 09:49 Opti-Gen Tab PO Not Given Q12HR [facility] Pantoprazole Sodium 40 mg 04/03/24 11:20 04/04/24 09:49 Pantoprazole 40 Mg Tablet PO Not Given Q12HR [facility] Potassium Chloride 10 meq 04/05/24 08:00 Potassium Chloride 10 Meq Er Tablet PO DAILY@0800 [facility] Vancomycin HCl 125 mg 04/03/24 12:00 04/04/24 06:06 Vancomycin Hcl 125 Mg Oral Capsule PO 125 mg Q6HR [facility] Administration Vancomycin HCl 1 each 04/04/24 09:33 Vancomycin For Peritoneal Dialysis IVPB PRN PRN Vancomycin Protocol Vitamin B Complex/Folic Acid 1 cap 04/03/24 12:00 04/03/24 11:57 Vitamin B Cmplx/Vit C/Folic Ac 1 Capsule PO 1 cap DAILY@1200 [facility] Administration Vitamin D 5,000 units 04/03/24 12:00 04/03/24 11:59 Cholecalciferol 5,000 Units Tablet BY MOUTH 5,000 units DAILY@1200 [facility] Administration Radiology Results: ITS Impressions Chest X-Ray 04/02/24 21:43 IMPRESSION: Mild pulmonary vascular congestion, without focal infiltrate or effusion. Head CT 04/03/24 19:54 Impression: No acute intracranial hemorrhage or suspicious mass effect. Inflammatory sinus disease. Labs Labs: Laboratory Results - last 24 hr 04/03/24 04/03/24 04/03/24 11:12 11:15 13:13 WBC RBC Hgb Hct MCV MCH MCHC RDW Plt Count MPV Immature Gran % (Auto) Neut % (Auto) Lymph % (Auto) [place] % (Auto) Eos % (Auto) Baso % (Auto) Lymph # (Auto) [place] # (Auto) Eos # (Auto) Baso # (Auto) Abs Immat Gran (auto) Absolute Neuts (auto) Absolute Nucleated RBC Nucleated RBC % Sodium Potassium Chloride Carbon Dioxide Anion Gap BUN Creatinine Estim Creat Clear Calc Estimated GFR Glucose POC Capillary Glucose Calcium Phosphorus Ammonia < 9 L Albumin Vitamin B12 353.0 Folate > 20.0 H TSH (Reflex) 1.360 Peritoneal Source Peritoneal fluid Peritoneal Color Yellow Peritoneal Appearance Clear Peritoneal RBC < 2000 Periton Nuc Cells 42 Periton Neutrophils 15 Periton Lymphocytes 0 Peritoneal Monocytes 42 Peritoneal Eosinophils 42 Periton Macrophages 1 C. difficile (PCR) Negative 04/03/24 04/03/24 04/04/24 16:43 19:58 03:19 WBC RBC Hgb Hct MCV MCH MCHC RDW Plt Count MPV Immature Gran % (Auto) Neut % (Auto) Lymph % (Auto) [place] % (Auto) Eos % (Auto) Baso % (Auto) Lymph # (Auto) [place] # (Auto) Eos # (Auto) Baso # (Auto) Abs Immat Gran (auto) Absolute Neuts (auto) Absolute Nucleated RBC Nucleated RBC % Sodium Potassium Chloride Carbon Dioxide Anion Gap BUN Creatinine Estim Creat Clear Calc Estimated GFR Glucose POC Capillary Glucose 123 H 129 H 240 H Calcium Phosphorus Ammonia Albumin Vitamin B12 Folate TSH (Reflex) Peritoneal Source Peritoneal Color Peritoneal Appearance Peritoneal RBC Periton Nuc Cells Periton Neutrophils Periton Lymphocytes Peritoneal Monocytes Peritoneal Eosinophils Periton Macrophages C. difficile (PCR) 04/04/24 04/04/24 06:42 08:11 WBC 9.2 RBC 3.01 L Hgb 9.3 L Hct 28.9 L MCV 96.0 MCH 30.9 MCHC 32.2 RDW 16.0 H Plt Count 182 MPV 11.5 H Immature Gran % (Auto) 2.4 H Neut % (Auto) 81.5 H Lymph % (Auto) 4.5 L [place] % (Auto) 11.0 H Eos % (Auto) 0.4 Baso % (Auto) 0.2 Lymph # (Auto) 0.41 L [place] # (Auto) 1.0 H Eos # (Auto) 0.0 Baso # (Auto) 0.0 Abs Immat Gran (auto) 0.22 H Absolute Neuts (auto) 7.5 H Absolute Nucleated RBC 0.000 Nucleated RBC % 0.0 Sodium 136 L Potassium 3.2 L Chloride 96 L Carbon Dioxide 26 Anion Gap 14 H BUN 47 H Creatinine 10.03 H Estim Creat Clear Calc 8 Estimated GFR 5 L Glucose 238 H POC Capillary Glucose 240 H Calcium 9.2 Phosphorus 4.9 H Ammonia Albumin 3.1 L Vitamin B12 Folate TSH (Reflex) Peritoneal Source Peritoneal Color Peritoneal Appearance Peritoneal RBC Periton Nuc Cells Periton Neutrophils Periton Lymphocytes Peritoneal Monocytes Peritoneal Eosinophils Periton Macrophages C. difficile (PCR)
--- NOTE | 2024-04-04 10:21 | PC.NURSE ---
dry chain offbearer spoke with Dr Mccall via telephone. Dr Mccall asking why ABG's did not get drawn on patient yesterday 04/03/2023. dry chain offbearer asked Esau and she is unsure as to why they weren't drawn yesterday as she did not have this patient yesterday. dry chain offbearer updated Dr Mccall and he still wants the ABG obtained. [facility] called 3 med surg respiratory therapist and she is going to obtain ABG.
[2024-04-04] MEDS: VANCOMYCIN 2,000 MG/NS 500 ML 2,000 MG/500 ML BAG 250 MG IVPB (12:03)
[2024-04-04 12:42] LABS: Glucose Point of Care 149 mg/dl (65-105)
--- NOTE | 2024-04-04 13:39 | PCRCNOTE ---
RT attemped to get ABG on pt, was not able to obtain. RN and MD aware.
[2024-04-04] MEDS: FENOFIBRATE NANOCRYSTALLIZED 145 MG TABLET PO (13:59)
[2024-04-04] MEDS: CHOLECALCIFEROL 5,000 UNITS TABLET 5000 UNITS BY MOUTH (13:59)
--- NOTE | 2024-04-04 14:25 | PCPTNOTE ---
attempted PT binta, per RN pt has had increased confusion today and was just placed on a CPAP, reports his ABGs have been off and pt would benefit from passing on therapy today, will follow
[2024-04-04] MEDS: POTASSIUM CHLORIDE INJ 40 MEQ in SODIUM CHLORIDE 0.9% IV 500 ML 100 MEQ IVPB (16:03)
[2024-04-04 17:06] LABS: Glucose Point of Care 190 mg/dl (65-105)
[2024-04-04] MEDS: SACCHAROMYCES BOULARDII 250 MG CAPSULE PO (18:45)
[2024-04-04] MEDS: GABAPENTIN 300 MG CAPSULE PO (18:45)
[2024-04-04] MEDS: PANTOPRAZOLE 40 MG TABLET PO (20:35)
[2024-04-04] MEDS: INSULIN ASPART (*BKC) 100 UNITS/ML SUB-Q (20:48)
[2024-04-04 21:38] LABS: Glucose Point of Care 236 mg/dl (65-105)
[2024-04-05] VITALS (13 sets, daily range): BP systolic 105–148; BP diastolic 57–67; PULSE 66–82; RESP 16–20; TEMP 36.3–38.3; O2SAT 93–100
[2024-04-05] MEDS: ACETAMINOPHEN 325 MG TABLET 650 MG PO ×2 (00:17→20:45)
[2024-04-05] MEDS: PIPERACILLIN/TAZ 2.25G/NS 50ML 2.25 GM/50 ML BAG IVPB ×2 (00:17→06:35)
[2024-04-05] MEDS: VANCOMYCIN HCL 125 MG ORAL CAPSULE PO ×4 (00:17→20:53)
[2024-04-05] MEDS: METOCLOPRAMIDE HCL 10 MG TABLET PO (06:35)
[2024-04-05] MEDS: LEVOTHYROXINE SODIUM 112 MCG TABLET PO (06:35)
[2024-04-05 08:05] LABS: Glucose Point of Care 117 mg/dl (65-105)
[2024-04-05 08:32] LABS: Hematocrit 29.9 % (42.0-52.0); Hemoglobin 8.9 g/dL (14.0-18.0); Mean Corpuscular HGB Conc 29.8 g/dl (32-36); Mean Corpuscular Hemoglobin 30.2 pg (26-34); Mean Corpuscular Volume 101.4 fl (80-100); Mean Platelet Volume 10.9 fl (7.4-10.4); Platelet Count Result 174 k/mm3 (150-375); Red Blood Count 2.95 M/mm3 (4.6-6.20); Red Cell Distribution Width 15.9 % (11.5-14.5); White Blood Count 5.9 K/mm3 (4.5-10.0)
[2024-04-05 08:38] LABS: Alanine Aminotransferase 36 U/L (6-50); Albumin Level 3.1 g/dL (3.5-5.1); Alkaline Phosphatase 42 U/L (38-126); Anion Gap 15 mmol/L (4-12); Aspartate Amino Transferase 82 U/L (17-59); Bilirubin,Total 0.5 mg/dL (0.2-1.3); Blood Urea Nitrogen 45 mg/dL (9-20); Calcium 8.9 mg/dL (8.4-10.2); Carbon Dioxide 26 mmol/L (22-30); Chloride 99 mmol/L (98-107); Estimated CRCL calculation 8 ml/min; Estimated Glomerular Filt Rate 5; Glucose 119 mg/dL (65-110); Potassium 3.6 mmol/L (3.4-5.0); Sodium 140 mmol/L (137-145)
--- NOTE | 2024-04-05 09:32 | PCPTNOTE ---
attempted PT eval, pt refused physical therapy, I informed the pt about the importance of participating and getting out of bed, pt still refused, will follow
[2024-04-05] MEDS: dilTIAZem HCL CD 120 MG CAP.24HR PO ×2 (09:45→20:45)
[2024-04-05] MEDS: POTASSIUM CHLORIDE 10 MEQ ER TABLET PO (09:46)
[2024-04-05] MEDS: GABAPENTIN 300 MG CAPSULE PO ×3 (09:46→16:46)
[2024-04-05] MEDS: hydrALAZINE 10 MG TABLET PO ×3 (09:47→16:44)
[2024-04-05] MEDS: OPTI-GEN TAB 1 TABLET PO ×2 (09:47→20:46)
[2024-04-05] MEDS: lisinopriL 20 MG TABLET PO ×2 (09:47→20:45)
[2024-04-05] MEDS: ASPIRIN 81 MG ENTERIC TABLET PO (09:47)
[2024-04-05] MEDS: FUROSEMIDE 80 MG TABLET 160 MG PO ×2 (09:48→13:10)
[2024-04-05] MEDS: SACCHAROMYCES BOULARDII 250 MG CAPSULE PO ×2 (09:48→16:45)
[2024-04-05] MEDS: carvediloL 25 MG TABLET PO ×2 (09:49→20:46)
[2024-04-05] MEDS: metOLazone 5 MG TABLET PO (09:49)
[2024-04-05] MEDS: PANTOPRAZOLE 40 MG TABLET PO ×2 (09:49→20:46)
[2024-04-05] MEDS: INSULIN GLARGINE (*BKC) 100 UNITS/ML 30 UNITS SUB-Q ×2 (09:52→20:50)
[2024-04-05] MEDS: HEPARIN SODIUM 5,000 UNITS/ML VIAL 5000 UNITS SUB-Q ×2 (09:52→20:46)
[2024-04-05 09:56] LABS: MRSA (PCR) NOT DETECTED (NOT DETECTE)
--- NOTE | 2024-04-05 09:56 | PM.PNNEP ---
Progress Note: A&P Assessment and Plan (1) End stage renal disease: Code(s): N18.6 - End stage renal disease Status: Chronic Assessment and Plan: continue nightly CCPD follow electrolytes, volume status, and clearance adjust PD prescription as needed (2) Sepsis: Code(s): A41.9 - Sepsis, unspecified organism Status: Acute Assessment and Plan: criteria met on admission - lactic acidosis, leukocytosis, fever, and AMS evaluation ongoing: urine and blood culture negative PD fluid negative for infection CT of head negative aside from inflammatory sinus disease still having low grade temperatures on antibiotics continue supportive therapy (3) Lethargy: Code(s): R53.83 - Other fatigue Status: Acute Assessment and Plan: mentation better in comparison to admission CT of head negative ammonia/B12/folic acid okay due to fevers(?) unable to assess for CO2 narcosis as difficulty noted with getting ABG follow mentation (4) Chronic diastolic (congestive) heart failure: Code(s): I50.32 - Chronic diastolic (congestive) heart failure Status: Chronic Assessment and Plan: appears compensated volume status stable fluid removal with peritoneal dialysis to maintain euvolemia (5) Obstructive sleep apnea: Code(s): G47.33 - Obstructive sleep apnea (adult) (pediatric) Status: Chronic Assessment and Plan: continue CPAP when sleeping (6) Anemia: Code(s): D64.9 - Anemia, unspecified Status: Chronic Assessment and Plan: due to ESRD follow trend of H/H start Epogen while hospitalized (7) Hypertension: Qualifiers: Hypertension type: primary hypertension Qualified Code(s): I10 - Essential (primary) hypertension Code(s): I10 - Essential (primary) hypertension Status: Chronic Assessment and Plan: reasonable control continue home medications follow trend of hemodynamics (8) Diabetes mellitus: Code(s): E11.9 - Type 2 diabetes mellitus without complications Status: Chronic Assessment and Plan: follow accu-cheks glycemic control per hospitalist Will continue to follow Subjective Date/time seen: 04/05/24 09:56 Interval history: Follow-up for end stage renal disease on peritoneal dialysis. Chart reviewed -- assuming care from Dr. Mccall; tolerated peritoneal dialysis treatment overnight without any acute issues or problems (CCPD supervised and seen at 9:45AM); he states he still feels like crap but admits feeling better in comparison to admission; at bedside and we discussed the situation. Exam Narrative: General: elderly but WD/WN male in NAD Heart: normal S1 and S2; no rub Lungs: clear bilaterally Abdomen: soft, nontender, nondistended, positive bowel sounds Extremities: no cyanosis or clubbing; no edema Skin: warm and dry Objective Data Vital Signs Vital Signs: Vital Signs Temp Pulse Resp BP Pulse Ox O2 Del Method 04/05/24 09:49 66 04/05/24 08:00 CPAP 04/05/24 06:00 98.4 F 66 20 105/60 97 04/05/24 04:30 16 CPAP 04/05/24 01:58 100.7 F H 04/05/24 01:34 100.7 F H 04/05/24 00:42 16 CPAP 04/05/24 00:17 100.7 F H 04/04/24 22:00 99.3 F 71 16 149/71 H 94 Intake/Output Intake/Output: Intake & Output 04/02/24 04/03/24 04/04/24 04/05/24 23:59 23:59 23:59 23:59 Intake Total 560 830 585 Output Total 450 1737 988 Balance 509 -907 -266 Meds/Results Medications: Active Medications Generic Name Dose Route Start Last Admin Trade Name Freq PRN Reason Stop Dose Admin Acetaminophen 650 mg 04/04/24 06:50 04/05/24 00:17 Acetaminophen 325 Mg Tablet PO 650 mg Q4H PRN Administration Fever Hydrocodone Bitart/Acetaminophen 1 tab 04/03/24 10:43 Hydrocodone/Acetaminophen (*Crx) 5-325 Mg Tablet PO Q6H PRN pain (scale score 4-6) Amoxicillin/Clavulanate Potassium 1 tablet 04/05/24 18:00 04/05/24 16:43 Amoxicillin/Clavulanate K 500-125 Mg Tab PO 04/12/24 09:01 1 tablet Q12HR JERMAINE Administration Aspirin 81 mg 04/03/24 10:55 04/05/24 09:47 Aspirin 81 Mg Enteric Tablet PO 81 mg DAILY JERMAINE Administration Atorvastatin Calcium 80 mg 04/03/24 21:00 04/04/24 20:37 Atorvastatin 40 Mg Tablet PO Not Given HS JERMAINE Calcium Acetate 2,001 mg 04/03/24 12:00 04/05/24 16:47 Calcium Acetate 667 Mg Tablet PO Not Given TIDWM J[facility] Carvedilol 25 mg 04/03/24 10:55 04/05/24 09:49 Carvedilol 25 Mg Tablet PO 25 mg Q12HR JERMAINE Administration Clonidine HCl 1 patch 04/16/24 09:00 Clonidine 0.2 Mg/24 Hr Patch TRANSDERM Fr@0900 [facility] Dextrose 12.5 gm 04/03/24 11:32 Dextrose 50% 25 Gm/50 Ml Syringe IV PUSH PRN PRN Hypoglycemia Protocol Diltiazem HCl 120 mg 04/03/24 11:30 04/05/24 09:45 Diltiazem Hcl Cd 120 Mg Cap.24hr PO 120 mg Q12HR JERMAINE Administration Fenofibrate 145 mg 04/03/24 12:00 04/05/24 13:12 Fenofibrate Nanocrystallized 145 Mg Tablet PO 145 mg DAILY@1200 J[facility] Administration Furosemide 160 mg 04/03/24 11:20 04/05/24 13:10 Furosemide 80 Mg Tablet PO 160 mg BID@0800,1400 [facility] Administration Gabapentin 300 mg 04/03/24 13:00 04/05/24 16:46 Gabapentin 300 Mg Capsule PO 300 mg TID [facility] Administration Glucagon 1 mg 04/03/24 11:32 Glucagon For Inj 1 Mg Vial IM PRN PRN Hypoglycemia Protocol Glucose 15 gm 04/03/24 11:32 Glucose Oral Gel 15 Gm Of Glucse In 37.5 Gm Tube PO PRN PRN Hypoglycemia Protocol Heparin Sodium (Porcine) 5,000 units 04/03/24 11:30 04/05/24 09:52 Heparin Sodium 5,000 Units/Ml Vial SUB-Q 5,000 units Q12HR [facility]ERMAINE Administration Hydralazine HCl 10 mg 04/03/24 13:00 04/05/24 16:44 Hydralazine 10 Mg Tablet PO 10 mg TID [facility] Administration Dextrose 1,000 mls @ 100 mls/hr 04/03/24 11:32 Dextrose 5% 1,000 Ml IVPB PRN PRN Hypoglycemia Protocol Insulin Aspart 2 - 5 units 04/03/24 12:00 04/05/24 11:46 Insulin Aspart (*Bkc) 100 Units/Ml SUB-Q Not Given TIDWM [facility] Protocol Insulin Aspart 1 - 2 units 04/03/24 21:00 04/04/24 20:48 Insulin Aspart (*Bkc) 100 Units/Ml SUB-Q 1 units HS JERMAINE Administration Protocol Insulin Glargine 30 units 04/03/24 11:20 04/05/24 09:52 Insulin Glargine (*Bkc) 100 Units/Ml SUB-Q 30 units Q12HR [facility] Administration Levothyroxine Sodium 112 mcg 04/03/24 11:20 04/05/24 06:35 Levothyroxine Sodium 112 Mcg Tablet PO 112 mcg DAILY@0630 [facility] Administration Lisinopril 20 mg 04/03/24 11:20 04/05/24 09:47 Lisinopril 20 Mg Tablet PO 20 mg Q12HR JER[facility]INE Administration Lorazepam 0.5 mg 04/03/24 11:37 Lorazepam (*Crx) 0.5 Mg Tablet PO Q6H PRN Anxiety Metoclopramide HCl 10 mg 04/03/24 11:25 04/05/24 06:35 Metoclopramide Hcl 10 Mg Tablet PO 10 mg DAILY@0630 [facility] Administration Metolazone 5 mg 04/03/24 11:25 04/05/24 09:49 Metolazone 5 Mg Tablet PO 5 mg DAILY [facility] Administration Metoprolol Tartrate 5 mg 04/05/24 11:19 Metoprolol Tartrate Inj 5 Mg/5 Ml Vial IV PUSH TID PRN Heart Rate- High Miscellaneous Information 1 each 04/05/24 16:56 Pharmacist Communication Order XX 04/05/24 16:57 ONCE ONE Multivitamins/Minerals 1 tablet 04/03/24 10:45 04/05/24 09:47 Opti-Gen Tab PO 1 tablet Q12HR [facility]ER[facility] Administration Pantoprazole Sodium 40 mg 04/03/24 11:20 04/05/24 09:49 Pantoprazole 40 Mg Tablet PO 40 mg Q12HR [facility] Administration Potassium Chloride 20 meq 04/06/24 09:00 Potassium Chloride 20 Meq Packet (For Liquid) PO DAILY JERMAINE Saccharomyces Boulardii 250 mg 04/04/24 17:00 04/05/24 16:45 Saccharomyces Boulardii 250 Mg Capsule PO 250 mg BID JER[facility]INE Administration Vancomycin HCl 125 mg 04/03/24 12:00 04/05/24 13:11 Vancomycin Hcl 125 Mg Oral Capsule PO 125 mg Q6HR [facility] Administration Vitamin B Complex/Folic Acid 1 cap 04/03/24 12:00 04/05/24 13:10 Vitamin B Cmplx/Vit C/Folic Ac 1 Capsule PO Not Given DAILY@1200 [facility] Vitamin D 5,000 units 04/03/24 12:00 04/05/24 13:07 Cholecalciferol 5,000 Units Tablet BY MOUTH 5,000 units DAILY@1200 [facility] Administration Radiology Results: ITS Impressions Chest X-Ray 04/02/24 21:43 IMPRESSION: Mild pulmonary vascular congestion, without focal infiltrate or effusion. Head CT 04/03/24 19:54 Impression: No acute intracranial hemorrhage or suspicious mass effect. Inflammatory sinus disease. Labs Labs: Laboratory Tests 04/05/24 08:14 04/05/24 08:14 Calcium 8.9 Total Bilirubin 0.5 AST 82 H ALT 36 Alkaline Phosphatase 42 Total Protein 6.0 L Albumin 3.1 L Microbiology 04/03/24 11:12 Abdomen Aerobic Culture - Preliminary
--- NOTE | 2024-04-05 11:00 | P.PNIM_ITS ---
Progress Note: A&P Assessment and Plan (1) Altered mental status: Code(s): R41.82 - Altered mental status, unspecified Status: Acute Assessment and Plan: AMS appears resolved ? secondary to sepsis Cultures are negative to date CT head and L/s is nl DC iv Abx cultures are negative to date order viral panel Watch for any further fever PT/ OT hopeful DC in 1-2 days time (2) Hypertension: Qualifiers: Hypertension type: primary hypertension Qualified Code(s): I10 - Essential (primary) hypertension Code(s): I10 - Essential (primary) hypertension Status: Chronic Assessment and Plan: Stable on current medications, BP is 105/ 60 (3) Anxiety: Code(s): F41.9 - Anxiety disorder, unspecified Status: Acute Assessment and Plan: Stable on current medications (4) Hyperlipemia: Code(s): E78.5 - Hyperlipidemia, unspecified Status: Acute Assessment and Plan: Stable on current medications (5) End-stage renal disease on peritoneal dialysis: Code(s): N18.6 - End stage renal disease; Z99.2 - Dependence on renal dialysis Status: Chronic Assessment and Plan: Continue with dialysis. Nephrology rounding (6) C. difficile colitis: Code(s): A04.72 - Enterocolitis due to Clostridium difficile, not specified as recurrent Status: Acute Assessment and Plan: Continue vancomycin oral (7) Diabetes mellitus: Code(s): E11.9 - Type 2 diabetes mellitus without complications Status: Chronic Assessment and Plan: Stable on current medication, will continue current treatment. Plan Dysphagia - order swallow evaluation Sleep apnea - pt wears CPAP DVT prop - continue lovenox Subjective Date/time seen: 04/05/24 11:00 Interval history: 61-year-old male who lives at home with his family, on peritoneal dialysis was brought in ER for evaluation of mental status change. Patient presents here with altered mental status, according to he usually gets slightly cold after dinner and ate it was the same today, but she noticed that he was shivering more and seemed a little slow to words. Pt admitted with AMS secondary to sepsis pt still having some low grade fevers will order viral panel Pt UC is negative and BC prelim is negative cdiff repeat here is negative CT head and L/s are negative pts creat is 10 today nephrology rounding PMH of HTN, HLD, ESRD CDiff recently and DM Review of Systems Review of Systems: Pt appears improved having some issues with swallowing today and low grade fevers Objective Data Vital Signs Vital Signs: Vital Signs - 24 hr 04/04/24 13:47 04/04/24 14:00 04/04/24 22:00 Temperature 37.1 C 37.4 C Pulse Rate 69 71 Respiratory Rate 18 18 16 Blood Pressure 110/50 L 149/71 H Pulse Oximetry 94 94 Oxygen Delivery CPAP 04/05/24 00:17 04/05/24 00:42 04/05/24 01:34 Temperature 38.2 C H 38.2 C H Pulse Rate Respiratory Rate 16 Blood Pressure Pulse Oximetry Oxygen Delivery CPAP 04/05/24 01:58 04/05/24 04:30 04/05/24 06:00 Temperature 38.2 C H 36.9 C Pulse Rate 66 Respiratory Rate 16 20 Blood Pressure 105/60 Pulse Oximetry 97 Oxygen Delivery CPAP 04/05/24 09:49 Temperature Pulse Rate 66 Respiratory Rate Blood Pressure Pulse Oximetry Oxygen Delivery Intake/Output Intake/Output: Intake & Output 04/02/24 04/03/24 04/04/24 04/05/24 23:59 23:59 23:59 23:59 Intake Total 560 830 225 Output Total 450 1737 125 Balance 110 -907 100 Meds/Results Medications: Active Medications Generic Name Dose Route Start Last Admin Trade Name Freq PRN Reason Stop Dose Admin Acetaminophen 650 mg 04/04/24 06:50 04/05/24 00:17 Acetaminophen 325 Mg Tablet PO 650 mg Q4H PRN Administration Fever Hydrocodone Bitart/Acetaminophen 1 tab 04/03/24 10:43 Hydrocodone/Acetaminophen (*Crx) 5-325 Mg Tablet PO Q6H PRN pain (scale score 4-6) Aspirin 81 mg 04/03/24 10:55 04/05/24 09:47 Aspirin 81 Mg Enteric Tablet PO 81 mg DAILY [facility] Administration Atorvastatin Calcium 80 mg 04/03/24 21:00 04/04/24 20:37 Atorvastatin 40 Mg Tablet PO Not Given HS [facility] Calcium Acetate 2,001 mg 04/03/24 12:00 04/05/24 09:49 Calcium Acetate 667 Mg Tablet PO Not Given TIDWM [facility] Carvedilol 25 mg 04/03/24 10:55 04/05/24 09:49 Carvedilol 25 Mg Tablet PO 25 mg Q12HR [facility] Administration Clonidine HCl 1 patch 04/16/24 09:00 Clonidine 0.2 Mg/24 Hr Patch TRANSDERM Fr@0900 [facility] Dextrose 12.5 gm 04/03/24 11:32 Dextrose 50% 25 Gm/50 Ml Syringe IV PUSH PRN PRN Hypoglycemia Protocol Diltiazem HCl 120 mg 04/03/24 11:30 04/05/24 09:45 Diltiazem Hcl Cd 120 Mg Cap.24hr PO 120 mg Q12HR [facility] Administration Fenofibrate 145 mg 04/03/24 12:00 04/04/24 13:59 Fenofibrate Nanocrystallized 145 Mg Tablet PO 145 mg DAILY@1200 [facility] Administration Furosemide 160 mg 04/03/24 11:20 04/05/24 09:48 Furosemide 80 Mg Tablet PO 160 mg BID@0800,1400 [facility] Administration Gabapentin 300 mg 04/03/24 13:00 04/05/24 09:46 Gabapentin 300 Mg Capsule PO 300 mg TID [facility] Administration Glucagon 1 mg 04/03/24 11:32 Glucagon For Inj 1 Mg Vial IM PRN PRN Hypoglycemia Protocol Glucose 15 gm 04/03/24 11:32 Glucose Oral Gel 15 Gm Of Glucse In 37.5 Gm Tube PO PRN PRN Hypoglycemia Protocol Heparin Sodium (Porcine) 5,000 units 04/03/24 11:30 04/05/24 09:52 Heparin Sodium 5,000 Units/Ml Vial SUB-Q 5,000 units Q12HR [facility] Administration Hydralazine HCl 10 mg 04/03/24 13:00 04/05/24 09:47 Hydralazine 10 Mg Tablet PO 10 mg TID [facility] Administration Dextrose 1,000 mls @ 100 mls/hr 04/03/24 11:32 Dextrose 5% 1,000 Ml IVPB PRN PRN Hypoglycemia Protocol Piperacillin Sod/Tazobactam Sod 2.25 gm in 50 mls @ 100 mls/hr 04/04/24 08:40 04/05/24 06:35 Zosyn 2.25 Gm/Ns 50 Ml IVPB 100 mls/hr Q8HR [facility] Administration Insulin Aspart 2 - 5 units 04/03/24 12:00 04/05/24 09:43 Insulin Aspart (*Bkc) 100 Units/Ml SUB-Q Not Given TIDWM [facility] Protocol Insulin Aspart 1 - 2 units 04/03/24 21:00 04/04/24 20:48 Insulin Aspart (*Bkc) 100 Units/Ml SUB-Q 1 units HS [facility] Administration Protocol Insulin Glargine 30 units 04/03/24 11:20 04/05/24 09:52 Insulin Glargine (*Bkc) 100 Units/Ml SUB-Q 30 units Q12HR [facility] Administration Levothyroxine Sodium 112 mcg 04/03/24 11:20 04/05/24 06:35 Levothyroxine Sodium 112 Mcg Tablet PO 112 mcg DAILY@0630 [facility] Administration Lisinopril 20 mg 04/03/24 11:20 04/05/24 09:47 Lisinopril 20 Mg Tablet PO 20 mg Q12HR [facility] Administration Lorazepam 0.5 mg 04/03/24 11:37 Lorazepam (*Crx) 0.5 Mg Tablet PO Q6H PRN Anxiety Metoclopramide HCl 10 mg 04/03/24 11:25 04/05/24 06:35 Metoclopramide Hcl 10 Mg Tablet PO 10 mg DAILY@0630 [facility] Administration Metolazone 5 mg 04/03/24 11:25 04/05/24 09:49 Metolazone 5 Mg Tablet PO 5 mg DAILY [facility] Administration Multivitamins/Minerals 1 tablet 04/03/24 10:45 04/05/24 09:47 Opti-Gen Tab PO 1 tablet Q12HR [facility] Administration Pantoprazole Sodium 40 mg 04/03/24 11:20 04/05/24 09:49 Pantoprazole 40 Mg Tablet PO 40 mg Q12HR [facility] Administration Potassium Chloride 10 meq 04/05/24 08:00 04/05/24 09:46 Potassium Chloride 10 Meq Er Tablet PO 10 meq DAILY@0800 [facility] Administration Saccharomyces Boulardii 250 mg 04/04/24 17:00 04/05/24 09:48 Saccharomyces Boulardii 250 Mg Capsule PO 250 mg BID [facility] Administration Vancomycin HCl 125 mg 04/03/24 12:00 04/05/24 06:35 Vancomycin Hcl 125 Mg Oral Capsule PO 125 mg Q6HR [facility] Administration Vancomycin HCl 1 each 04/04/24 09:33 Vancomycin For Peritoneal Dialysis IVPB PRN PRN Vancomycin Protocol Vitamin B Complex/Folic Acid 1 cap 04/03/24 12:00 04/04/24 13:44 Vitamin B Cmplx/Vit C/Folic Ac 1 Capsule PO Not Given DAILY@1200 [facility] Vitamin D 5,000 units 04/03/24 12:00 04/04/24 13:59 Cholecalciferol 5,000 Units Tablet BY MOUTH 5,000 units DAILY@1200 [facility] Administration Radiology Results: ITS Impressions Chest X-Ray 04/02/24 21:43 IMPRESSION: Mild pulmonary vascular congestion, without focal infiltrate or effusion. Head CT 04/03/24 19:54 Impression: No acute intracranial hemorrhage or suspicious mass effect. Inflammatory sinus disease. Labs Labs: Laboratory Results - last 24 hr 04/04/24 04/04/24 04/04/24 12:03 16:52 19:52 WBC RBC Hgb Hct MCV MCH MCHC RDW Plt Count MPV Sodium Potassium Chloride Carbon Dioxide Anion Gap BUN Creatinine Estim Creat Clear Calc Estimated GFR Glucose POC Capillary Glucose 149 H 190 H 236 H Calcium Total Bilirubin AST ALT Alkaline Phosphatase Total Protein Albumin Nasal MRSA (PCR) 04/05/24 04/05/24 04/05/24 07:01 07:58 08:14 WBC 5.9 RBC 2.95 L Hgb 8.9 L Hct 29.9 L MCV 101.4 H D MCH 30.2 MCHC 29.8 L RDW 15.9 H Plt Count 174 MPV 10.9 H Sodium 140 Potassium 3.6 Chloride 99 Carbon Dioxide 26 Anion Gap 15 H BUN 45 H Creatinine 10.16 H Estim Creat Clear Calc 8 Estimated GFR 5 L Glucose 119 H POC Capillary Glucose 117 H Calcium 8.9 Total Bilirubin 0.5 AST 82 H ALT 36 Alkaline Phosphatase 42 Total Protein 6.0 L Albumin 3.1 L Nasal MRSA (PCR) Not detected
[2024-04-05 11:32] LABS: Glucose Point of Care 112 mg/dl (65-105)
[2024-04-05] MEDS: CHOLECALCIFEROL 5,000 UNITS TABLET 5000 UNITS BY MOUTH (13:07)
[2024-04-05] MEDS: FENOFIBRATE NANOCRYSTALLIZED 145 MG TABLET PO (13:12)
[2024-04-05 14:30] LABS: Influenza A QL RT-PCR Negative (Negative); Influenza B QL RT-PCR Negative (Negative); RSV RNA, RT-PCR Negative (Negative); SARS-CoV-2 RNA PCR Negative (Negative)
[2024-04-05] MEDS: AMOXICILLIN/CLAVULANATE K 500-125 MG TAB 1 TABLET PO (16:43)
[2024-04-05 17:25] LABS: Glucose Point of Care 197 mg/dl (65-105)
[2024-04-05] MEDS: HEPARIN SODIUM 1,000 UNITS/ML VIAL 1250 UNITS XX (20:15)
[2024-04-05] MEDS: HEPARIN SODIUM 1,000 UNITS/ML VIAL 3000 UNITS XX (20:15)
[2024-04-05] MEDS: ATORVASTATIN 40 MG TABLET 80 MG PO (20:45)
[2024-04-05 22:24] LABS: Glucose Point of Care 137 mg/dl (65-105)
[2024-04-05] MEDS: WATER FOR IRRIGATION, STERILE 1,000 ML BOTTLE 1000 ML (23:28)
[2024-04-06] MEDS: VANCOMYCIN HCL 125 MG ORAL CAPSULE PO ×5 (01:28→23:44)
[2024-04-06] MEDS: LEVOTHYROXINE SODIUM 112 MCG TABLET PO (05:43)
[2024-04-06] MEDS: METOCLOPRAMIDE HCL 10 MG TABLET PO (05:43)
[2024-04-06 06:00] VITALS: BP 124/71; PULSE 60; RESP 20; TEMP 36.7; O2SAT 98
[2024-04-06 07:20] VITALS: BP 140/63; PULSE 56; RESP 14; TEMP 36.2; O2SAT 98
[2024-04-06 08:13] LABS: Glucose Point of Care 283 mg/dl (65-105)
--- NOTE | 2024-04-06 08:34 | PCPTNOTE ---
Nursing states pt will not agree to be seen prior to 11 am. States has dialysis at night and this is the only time he has to sleep. Will attempt to return pending time between additional patient care.
--- NOTE | 2024-04-06 08:43 | P.PNIM_ITS ---
Progress Note: A&P Assessment and Plan (1) Altered mental status: Code(s): R41.82 - Altered mental status, unspecified Status: Acute Assessment and Plan: AMS appears resolved ? secondary to sepsis Cultures are negative to date CT head and L/s is nl DC iv Abx cultures are negative to date covid, flu rsv negative. still has intermittent fever cotnineu to motnior (2) Hypertension: Qualifiers: Hypertension type: primary hypertension Qualified Code(s): I10 - Essential (primary) hypertension Code(s): I10 - Essential (primary) hypertension Status: Chronic Assessment and Plan: Stable on current medications, BP is 105/ 60 (3) Anxiety: Code(s): F41.9 - Anxiety disorder, unspecified Status: Acute Assessment and Plan: Stable on current medications (4) Hyperlipemia: Code(s): E78.5 - Hyperlipidemia, unspecified Status: Acute Assessment and Plan: Stable on current medications (5) End-stage renal disease on peritoneal dialysis: Code(s): N18.6 - End stage renal disease; Z99.2 - Dependence on renal dialysis Status: Chronic Assessment and Plan: Continue with dialysis. Nephrology rounding (6) C. difficile colitis: Code(s): A04.72 - Enterocolitis due to Clostridium difficile, not specified as recurrent Status: Acute Assessment and Plan: Continue vancomycin oral c diff is negative. still havign diarrhea. recheck c diff panel (7) Diabetes mellitus: Code(s): E11.9 - Type 2 diabetes mellitus without complications Status: Chronic Assessment and Plan: Stable on current medication, will continue current treatment. Plan Dysphagia - sseems resovled. chronic anemia Sleep apnea - pt wears CPAP at night DVT prop - continue lovenox Subjective Date/time seen: 04/06/24 08:43 Interval history: no overnight events, confusion has improved. no nasuea, vomiting. doing peritoneal dialysis. used cpap last night, mild fever in the evening last night. Review of Systems Review of Systems: All systems reviewed & are unremarkable except as noted in HPI and below (the history and physical exam) Exam Narrative: Exam Narrative: Well developed well-nourished in no acute distress Skin is warm and dry without rash Head normocephalic atraumatic Neck supple and flexible Eyes normal sclerae and conjunctivae Lungs symmetric and clear to auscultation and percussion Heart regular rate and rhythm without rub or gallop Abdomen bowel sounds positive soft nontender, no HSM, masses, or bruits. Peritoneal dialysis catheter in situ Extremities no cyanosis, clubbing, or edema Pulses 2+ equal in radial arteries Psychological not anxious or depressed Neuro alert and oriented x3 motor 5/5 cranial nerves 2-12 intact Objective Data Vital Signs Vital Signs: Vital Signs - 24 hr 04/05/24 09:49 04/05/24 14:00 04/05/24 20:30 Temperature 97.4 F L 100.9 F H Pulse Rate 66 82 Respiratory Rate 20 Blood Pressure 136/57 L Pulse Oximetry 93 04/05/24 20:45 04/05/24 20:46 04/05/24 21:45 Temperature 100.9 F H 98.2 F Pulse Rate 67 Respiratory Rate Blood Pressure Pulse Oximetry 04/05/24 22:00 04/06/24 06:00 04/06/24 07:20 Temperature 98.2 F 98.1 F 97.1 F L Pulse Rate 66 60 56 L Respiratory Rate 20 20 14 Blood Pressure 148/67 H 124/71 140/63 Pulse Oximetry 100 98 98 Intake/Output Intake/Output: Intake & Output 04/03/24 04/04/24 04/05/24 04/06/24 23:59 23:59 23:59 23:59 Intake Total 560 830 985 100 Output Total 450 1737 988 Balance 110 -907 -3 100 Meds/Results Medications: Active Medications Generic Name Dose Route Start Last Admin Trade Name Freq PRN Reason Stop Dose Admin Acetaminophen 650 mg 04/04/24 06:50 04/05/24 20:45 Acetaminophen 325 Mg Tablet PO 650 mg Q4H PRN Administration Fever Hydrocodone Bitart/Acetaminophen 1 tab 04/03/24 10:43 Hydrocodone/Acetaminophen (*Crx) 5-325 Mg Tablet PO Q6H PRN pain (scale score 4-6) Amoxicillin/Clavulanate Potassium 1 tablet 04/05/24 18:00 04/05/24 16:43 Amoxicillin/Clavulanate K 500-125 Mg Tab PO 04/12/24 09:01 1 tablet Q12HR [facility] Administration Aspirin 81 mg 04/03/24 10:55 04/05/24 09:47 Aspirin 81 Mg Enteric Tablet PO 81 mg DAILY [facility]ERMAINE Administration Atorvastatin Calcium 80 mg 04/03/24 21:00 04/05/24 20:45 Atorvastatin 40 Mg Tablet PO 80 mg HS [facility] Administration Calcium Acetate 2,001 mg 04/03/24 12:00 04/05/24 16:47 Calcium Acetate 667 Mg Tablet PO Not Given TIDWM [facility] Carvedilol 25 mg 04/03/24 10:55 04/05/24 20:46 Carvedilol 25 Mg Tablet PO 25 mg Q12HR [facility] Administration Clonidine HCl 1 patch 04/16/24 09:00 Clonidine 0.2 Mg/24 Hr Patch TRANSDERM Fr@0900 [facility] Dextrose 12.5 gm 04/03/24 11:32 Dextrose 50% 25 Gm/50 Ml Syringe IV PUSH PRN PRN Hypoglycemia Protocol Diltiazem HCl 120 mg 04/03/24 11:30 04/05/24 20:45 Diltiazem Hcl Cd 120 Mg Cap.24hr PO 120 mg Q12HR [facility]INE Administration Epoetin Mati-epbx 10,000 units 04/06/24 09:00 Epoetin Mati-Epbx 10,000 Units/Ml Vial SUB-Q TUTHSA@09 [facility] Fenofibrate 145 mg 04/03/24 12:00 04/05/24 13:12 Fenofibrate Nanocrystallized 145 Mg Tablet PO 145 mg DAILY@1200 [facility] Administration Furosemide 160 mg 04/03/24 11:20 04/05/24 13:10 Furosemide 80 Mg Tablet PO 160 mg BID@0800,1400 [facility] Administration Gabapentin 300 mg 04/03/24 13:00 04/05/24 16:46 Gabapentin 300 Mg Capsule PO 300 mg TID [facility] Administration Glucagon 1 mg 04/03/24 11:32 Glucagon For Inj 1 Mg Vial IM PRN PRN Hypoglycemia Protocol Glucose 15 gm 04/03/24 11:32 Glucose Oral Gel 15 Gm Of Glucse In 37.5 Gm Tube PO PRN PRN Hypoglycemia Protocol Heparin Sodium (Porcine) 5,000 units 04/03/24 11:30 04/05/24 20:46 Heparin Sodium 5,000 Units/Ml Vial SUB-Q 5,000 units Q12HR [facility] Administration Hydralazine HCl 10 mg 04/03/24 13:00 04/05/24 16:44 Hydralazine 10 Mg Tablet PO 10 mg TID [facility] Administration Dextrose 1,000 mls @ 100 mls/hr 02/15/25 11:32 Dextrose 5% 1,000 Ml IVPB PRN PRN Hypoglycemia Protocol Insulin Aspart 2 - 5 units 04/03/24 12:00 04/05/24 17:48 Insulin Aspart (*Bkc) 100 Units/Ml SUB-Q Not Given TIDWM [facility] Protocol Insulin Aspart 1 - 2 units 04/03/24 21:00 04/05/24 20:46 Insulin Aspart (*Bkc) 100 Units/Ml SUB-Q Not Given HS [facility] Protocol Insulin Glargine 30 units 04/03/24 11:20 04/05/24 20:50 Insulin Glargine (*Bkc) 100 Units/Ml SUB-Q 30 units Q12HR [facility] Administration Levothyroxine Sodium 112 mcg 04/03/24 11:20 04/06/24 05:43 Levothyroxine Sodium 112 Mcg Tablet PO 112 mcg DAILY@0630 [facility] Administration Lisinopril 20 mg 04/03/24 11:20 04/05/24 20:45 Lisinopril 20 Mg Tablet PO 20 mg Q12HR [facility] Administration Lorazepam 0.5 mg 04/03/24 11:37 Lorazepam (*Crx) 0.5 Mg Tablet PO Q6H PRN Anxiety Metoclopramide HCl 10 mg 04/03/24 11:25 04/06/24 05:43 Metoclopramide Hcl 10 Mg Tablet PO 10 mg DAILY@0630 [facility] Administration Metolazone 5 mg 04/03/24 11:25 04/05/24 09:49 Metolazone 5 Mg Tablet PO 5 mg DAILY [facility] Administration Metoprolol Tartrate 5 mg 04/05/24 11:19 Metoprolol Tartrate Inj 5 Mg/5 Ml Vial IV PUSH TID PRN Heart Rate- High Multivitamins/Minerals 1 tablet 04/03/24 10:45 04/05/24 20:46 Opti-Gen Tab PO 1 tablet Q12HR [facility] Administration Pantoprazole Sodium 40 mg 04/03/24 11:20 04/05/24 20:46 Pantoprazole 40 Mg Tablet PO 40 mg Q12HR [facility] Administration Potassium Chloride 20 meq 04/06/24 09:00 Potassium Chloride 20 Meq Packet (For Liquid) PO DAILY [facility] Saccharomyces Boulardii 250 mg 04/04/24 17:00 04/05/24 16:45 Saccharomyces Boulardii 250 Mg Capsule PO 250 mg BID [facility] Administration Vancomycin HCl 125 mg 04/03/24 12:00 04/06/24 05:43 Vancomycin Hcl 125 Mg Oral Capsule PO 125 mg Q6HR [facility] Administration Vitamin B Complex/Folic Acid 1 cap 04/03/24 12:00 04/05/24 13:10 Vitamin B Cmplx/Vit C/Folic Ac 1 Capsule PO Not Given DAILY@1200 [facility] Vitamin D 5,000 units 04/03/24 12:00 04/05/24 13:07 Cholecalciferol 5,000 Units Tablet BY MOUTH 5,000 units DAILY@1200 [facility] Administration Radiology Results: ITS Impressions Chest X-Ray 04/02/24 21:43 IMPRESSION: Mild pulmonary vascular congestion, without focal infiltrate or effusion. Head CT 04/03/24 19:54 Impression: No acute intracranial hemorrhage or suspicious mass effect. Inflammatory sinus disease. Labs Labs: Laboratory Results - last 24 hr 04/05/24 04/05/24 04/05/24 07:01 08:14 11:26 WBC 5.9 RBC 2.95 L Hgb 8.9 L Hct 29.9 L MCV 101.4 H D MCH 30.2 MCHC 29.8 L RDW 15.9 H Plt Count 174 MPV 10.9 H POC Capillary Glucose 112 H Nasal MRSA (PCR) Not detected Influenza A (RT-PCR) Influenza B (RT-PCR) RSV (RT-PCR) SARS-CoV-2 RNA (RT-PCR) 04/05/24 04/05/24 04/05/24 13:02 17:15 20:40 WBC RBC Hgb Hct MCV MCH MCHC RDW Plt Count MPV POC Capillary Glucose 197 H 137 H Nasal MRSA (PCR) Influenza A (RT-PCR) Negative Influenza B (RT-PCR) Negative RSV (RT-PCR) Negative SARS-CoV-2 RNA (RT-PCR) Negative 04/06/24 08:10 WBC RBC Hgb Hct MCV MCH MCHC RDW Plt Count MPV POC Capillary Glucose 283 H Nasal MRSA (PCR) Influenza A (RT-PCR) Influenza B (RT-PCR) RSV (RT-PCR) SARS-CoV-2 RNA (RT-PCR)
[2024-04-06] MEDS: ASPIRIN 81 MG ENTERIC TABLET PO (09:28)
[2024-04-06] MEDS: POTASSIUM CHLORIDE 20 MEQ PACKET (FOR LIQUID) PO (09:28)
[2024-04-06] MEDS: hydrALAZINE 10 MG TABLET PO ×3 (09:30→17:50)
[2024-04-06] MEDS: HEPARIN SODIUM 5,000 UNITS/ML VIAL 5000 UNITS SUB-Q ×2 (09:30→20:47)
[2024-04-06] MEDS: GABAPENTIN 300 MG CAPSULE PO ×3 (09:30→17:50)
[2024-04-06] MEDS: OPTI-GEN TAB 1 TABLET PO ×2 (09:31→20:47)
[2024-04-06] MEDS: lisinopriL 20 MG TABLET PO ×2 (09:31→20:47)
[2024-04-06] MEDS: SACCHAROMYCES BOULARDII 250 MG CAPSULE PO ×2 (09:31→17:50)
[2024-04-06] MEDS: FUROSEMIDE 80 MG TABLET 160 MG PO ×2 (09:31→13:41)
[2024-04-06 09:32] VITALS: PULSE 67
[2024-04-06] MEDS: PANTOPRAZOLE 40 MG TABLET PO ×2 (09:32→20:46)
[2024-04-06] MEDS: AMOXICILLIN/CLAVULANATE K 500-125 MG TAB 1 TABLET PO ×2 (09:32→20:47)
[2024-04-06] MEDS: dilTIAZem HCL CD 120 MG CAP.24HR PO ×2 (09:32→20:46)
[2024-04-06] MEDS: carvediloL 25 MG TABLET PO ×2 (09:32→20:47)
[2024-04-06] MEDS: INSULIN ASPART (*BKC) 100 UNITS/ML SUB-Q ×3 (09:51→20:52)
[2024-04-06] MEDS: metOLazone 5 MG TABLET PO (09:52)
[2024-04-06] MEDS: INSULIN GLARGINE (*BKC) 100 UNITS/ML 30 UNITS SUB-Q ×2 (09:56→20:51)
[2024-04-06 10:06] LABS: Toxigenic C. Diff NEGATIVE (NEGATIVE)
[2024-04-06 10:49] LABS: Basophils Percent Auto 0.4 % (0.2-1.2); Eosinophils Percent Auto 0.8 % (0-4.4); Hematocrit 28.8 % (42.0-52.0); Immature Granulocyte Absolute 0.31 K/mm3 (0.00-0.031); Immature Granulocyte Percent A 6.4 % (0-0.5); Lymphocytes Absolute Auto 0.56 K/mm3 (0.9-3.2); Lymphocytes Percent Auto 11.6 % (18.3-44.2); Mean Corpuscular HGB Conc 31.3 g/dl (32-36); Mean Corpuscular Hemoglobin 30.2 pg (26-34); Mean Corpuscular Volume 96.6 fl (80-100); Mean Platelet Volume 10.6 fl (7.4-10.4); Monocytes Absolute Auto 0.9 K/mm3 (0.1-0.6); Monocytes Percent Auto 17.8 % (2.6-8.5); Neutrophils Absolute Auto 3.1 K/mm3 (1.3-6.7); Platelet Count Result 169 k/mm3 (150-375); Red Blood Count 2.98 M/mm3 (4.6-6.20); Red Cell Distribution Width 15.8 % (11.5-14.5); White Blood Count 4.8 K/mm3 (4.5-10.0)
[2024-04-06 10:57] LABS: Anion Gap 13 mmol/L (4-12); Blood Urea Nitrogen 43 mg/dL (9-20); Calcium 8.4 mg/dL (8.4-10.2); Carbon Dioxide 28 mmol/L (22-30); Chloride 97 mmol/L (98-107); Estimated CRCL calculation 8 ml/min; Estimated Glomerular Filt Rate 5; Glucose 245 mg/dL (65-110); Potassium 3.4 mmol/L (3.4-5.0); Sodium 138 mmol/L (137-145)
[2024-04-06 12:02] LABS: Glucose Point of Care 235 mg/dl (65-105)
--- NOTE | 2024-04-06 12:10 | P.PNNP_ITS ---
Progress Note: A&P Assessment and Plan (1) End stage renal disease: Code(s): N18.6 - End stage renal disease Status: Chronic Assessment and Plan: * continue nightly CCPD * follow electrolytes, volume status, and clearance * adjust PD prescription as needed (2) Sepsis: Code(s): A41.9 - Sepsis, unspecified organism Status: Acute Assessment and Plan: * criteria met on admission - lactic acidosis, leukocytosis, fever, and AMS * evaluation ongoing: * urine and blood culture negative * PD fluid negative for infection * CT of head negative aside from inflammatory sinus disease * still having low grade temperatures * on antibiotics * continue supportive therapy (3) Lethargy: Code(s): R53.83 - Other fatigue Status: Acute Assessment and Plan: * mentation better in comparison to admission * CT of head negative * ammonia/B12/folic acid okay * due to fevers(?) * unable to assess for CO2 narcosis as difficulty noted with getting ABG * follow mentation (4) Chronic diastolic (congestive) heart failure: Code(s): I50.32 - Chronic diastolic (congestive) heart failure Status: Chronic Assessment and Plan: * appears compensated * volume status stable * fluid removal with peritoneal dialysis to maintain euvolemia (5) Obstructive sleep apnea: Code(s): G47.33 - Obstructive sleep apnea (adult) (pediatric) Status: Chronic Assessment and Plan: * continue CPAP when sleeping (6) Anemia: Code(s): D64.9 - Anemia, unspecified Status: Chronic Assessment and Plan: * due to ESRD * follow trend of H/H * on Epogen 3x/week while hospitalized (7) Hypertension: Qualifiers: Hypertension type: primary hypertension Qualified Code(s): I10 - Essential (primary) hypertension Code(s): I10 - Essential (primary) hypertension Status: Chronic Assessment and Plan: * reasonable control * continue home medications * follow trend of hemodynamics (8) Diabetes mellitus: Code(s): E11.9 - Type 2 diabetes mellitus without complications Status: Chronic Assessment and Plan: * follow accu-cheks * glycemic control per hospitalist Will continue to follow L Subjective Date/time seen: 04/06/24 12:10 Interval history: Follow-up for end stage renal disease on peritoneal dialysis. Tolerated peritoneal dialysis treatment overnight without any issues or problems; resting comfortably on nasal CPAP therapy when seen; no apparent distress noted; confusion appears to be doing better per discussion with his at bedside; Tmax of 100.9? yesterday evening; no other events overnight or earlier today. Exam 2 Narrative: General: elderly but WD/WN male in NAD Heart: normal S1 and S2; no rub Lungs: clear bilaterally Abdomen: soft, nontender, nondistended, positive bowel sounds Extremities: no cyanosis or clubbing; no edema Skin: warm and intact Objective Data Vital Signs Vital Signs: Vital Signs Temp Pulse Resp BP Pulse Ox O2 Del Method 04/06/24 09:32 67 04/06/24 08:00 CPAP 04/06/24 07:20 97.1 F L 56 L 14 140/63 98 04/06/24 06:00 98.1 F 60 20 124/71 98 04/05/24 22:00 98.2 F 66 20 148/67 H 100 04/05/24 21:45 98.2 F 04/05/24 20:46 67 04/05/24 20:45 100.9 F H 04/05/24 20:30 100.9 F H Intake/Output Intake/Output: Intake & Output 04/03/24 04/04/24 04/05/24 04/06/24 23:59 23:59 23:59 23:59 Intake Total 560 830 985 218 Output Total 450 1737 988 Balance 110 -907 -3 218 Meds/Results Medications: Active Medications Generic Name Dose Route Start Last Admin Trade Name Freq PRN Reason Stop Dose Admin Acetaminophen 650 mg 04/04/24 06:50 04/05/24 20:45 Acetaminophen 325 Mg Tablet PO 650 mg Q4H PRN Administration Fever Hydrocodone Bitart/Acetaminophen 1 tab 04/03/24 10:43 Hydrocodone/Acetaminophen (*Crx) 5-325 Mg Tablet PO Q6H PRN pain (scale score 4-6) Amoxicillin/Clavulanate Potassium 1 tablet 04/05/24 18:00 04/06/24 09:32 Amoxicillin/Clavulanate K 500-125 Mg Tab PO 04/12/24 09:01 1 tablet Q12HR [facility]ERMAINE Administration Aspirin 81 mg 04/03/24 10:55 04/06/24 09:28 Aspirin 81 Mg Enteric Tablet PO 81 mg DAILY JERMAINE Administration Atorvastatin Calcium 80 mg 04/03/24 21:00 04/05/24 20:45 Atorvastatin 40 Mg Tablet PO 80 mg HS [facility] Administration Calcium Acetate 2,001 mg 04/03/24 12:00 04/06/24 13:18 Calcium Acetate 667 Mg Tablet PO Not Given TIDWM [facility] Carvedilol 25 mg 04/03/24 10:55 04/06/24 09:32 Carvedilol 25 Mg Tablet PO 25 mg Q12HR [facility]INE Administration Clonidine HCl 1 patch 04/16/24 09:00 Clonidine 0.2 Mg/24 Hr Patch TRANSDERM Fr@0900 [facility] Dextrose 12.5 gm 04/03/24 11:32 Dextrose 50% 25 Gm/50 Ml Syringe IV PUSH PRN PRN Hypoglycemia Protocol Diltiazem HCl 120 mg 04/03/24 11:30 04/06/24 09:32 Diltiazem Hcl Cd 120 Mg Cap.24hr PO 120 mg Q12HR [facility]ERMAINE Administration Epoetin Mati-epbx 10,000 units 04/06/24 09:00 04/06/24 13:39 Epoetin Mati-Epbx 10,000 Units/Ml Vial SUB-Q 10,000 units TUTHSA@09 [facility] Administration Fenofibrate 145 mg 04/03/24 12:00 04/06/24 13:42 Fenofibrate Nanocrystallized 145 Mg Tablet PO 145 mg DAILY@1200 [facility] Administration Furosemide 160 mg 04/03/24 11:20 04/06/24 13:41 Furosemide 80 Mg Tablet PO 160 mg BID@0800,1400 [facility] Administration Gabapentin 300 mg 04/03/24 13:00 04/06/24 13:42 Gabapentin 300 Mg Capsule PO 300 mg TID [facility] Administration Glucagon 1 mg 04/03/24 11:32 Glucagon For Inj 1 Mg Vial IM PRN PRN Hypoglycemia Protocol Glucose 15 gm 04/03/24 11:32 Glucose Oral Gel 15 Gm Of Glucse In 37.5 Gm Tube PO PRN PRN Hypoglycemia Protocol Heparin Sodium (Porcine) 5,000 units 04/03/24 11:30 04/06/24 09:30 Heparin Sodium 5,000 Units/Ml Vial SUB-Q 5,000 units Q12HR [facility] Administration Hydralazine HCl 10 mg 04/03/24 13:00 04/06/24 13:42 Hydralazine 10 Mg Tablet PO 10 mg TID [facility] Administration Dextrose 1,000 mls @ 100 mls/hr 04/03/24 11:32 Dextrose 5% 1,000 Ml IVPB PRN PRN Hypoglycemia Protocol Insulin Aspart 2 - 5 units 04/03/24 12:00 04/06/24 12:36 Insulin Aspart (*Bkc) 100 Units/Ml SUB-Q 2 units TIDWM [facility] Administration Protocol Insulin Aspart 1 - 2 units 04/03/24 21:00 04/05/24 20:46 Insulin Aspart (*Bkc) 100 Units/Ml SUB-Q Not Given HS [facility]ERMA[facility] Protocol Insulin Glargine 30 units 04/03/24 11:20 04/06/24 09:56 Insulin Glargine (*Bkc) 100 Units/Ml SUB-Q 30 units Q12HR [facility] Administration Levothyroxine Sodium 112 mcg 04/03/24 11:20 04/06/24 05:43 Levothyroxine Sodium 112 Mcg Tablet PO 112 mcg DAILY@0630 [facility] Administration Lisinopril 20 mg 04/03/24 11:20 04/06/24 09:31 Lisinopril 20 Mg Tablet PO 20 mg Q12HR [facility] Administration Lorazepam 0.5 mg 04/03/24 11:37 Lorazepam (*Crx) 0.5 Mg Tablet PO Q6H PRN Anxiety Metoclopramide HCl 10 mg 04/03/24 11:25 04/06/24 05:43 Metoclopramide Hcl 10 Mg Tablet PO 10 mg DAILY@0630 [facility] Administration Metolazone 5 mg 04/03/24 11:25 04/06/24 09:52 Metolazone 5 Mg Tablet PO 5 mg DAILY [facility] Administration Metoprolol Tartrate 5 mg 04/05/24 11:19 Metoprolol Tartrate Inj 5 Mg/5 Ml Vial IV PUSH TID PRN Heart Rate- High Multivitamins/Minerals 1 tablet 04/03/24 10:45 04/06/24 09:31 Opti-Gen Tab PO 1 tablet Q12HR [facility] Administration Pantoprazole Sodium 40 mg 04/03/24 11:20 04/06/24 09:32 Pantoprazole 40 Mg Tablet PO 40 mg Q12HR [facility] Administration Potassium Chloride 20 meq 04/06/24 09:00 04/06/24 09:28 Potassium Chloride 20 Meq Packet (For Liquid) PO 20 meq DAILY [facility] Administration Saccharomyces Boulardii 250 mg 04/04/24 17:00 04/06/24 09:31 Saccharomyces Boulardii 250 Mg Capsule PO 250 mg BID [facility] Administration Vancomycin HCl 125 mg 04/03/24 12:00 04/06/24 13:41 Vancomycin Hcl 125 Mg Oral Capsule PO 125 mg Q6HR [facility] Administration Vitamin B Complex/Folic Acid 1 cap 04/03/24 12:00 04/06/24 13:42 Vitamin B Cmplx/Vit C/Folic Ac 1 Capsule PO 1 cap DAILY@1200 [facility] Administration Vitamin D 5,000 units 04/03/24 12:00 04/06/24 13:42 Cholecalciferol 5,000 Units Tablet BY MOUTH 5,000 units DAILY@1200 [facility] Administration Radiology Results: ITS Impressions Chest X-Ray 04/02/24 21:43 IMPRESSION: Mild pulmonary vascular congestion, without focal infiltrate or effusion. Head CT 04/03/24 19:54 Impression: No acute intracranial hemorrhage or suspicious mass effect. Inflammatory sinus disease. Labs Labs: Laboratory Tests 04/06/24 10:36 04/06/24 10:36 Microbiology 04/03/24 11:12 Abdomen Aerobic Culture - Final
--- NOTE | 2024-04-06 13:17 | PCSTNOTE ---
Attempted to schedule ordered MBS but nurse indicated she thought it was cancelled. Patient had cheeseburger and has been drinking without trouble. FRONT DESK COORDINATOR spoke with Dr. Schwarz and we agreed to cancel order.
[2024-04-06] MEDS: EPOETIN ALFA-EPBX 10,000 UNITS/ML VIAL 10000 UNITS SUB-Q (13:39)
[2024-04-06] MEDS: FENOFIBRATE NANOCRYSTALLIZED 145 MG TABLET PO (13:42)
[2024-04-06] MEDS: CHOLECALCIFEROL 5,000 UNITS TABLET 5000 UNITS BY MOUTH (13:42)
[2024-04-06] MEDS: VITAMIN B CMPLX/VIT C/FOLIC AC 1 CAPSULE 1 CAP PO (13:42)
[2024-04-06 15:05] VITALS: BP 140/67; PULSE 67; RESP 16; TEMP 36.2; O2SAT 96
[2024-04-06 17:26] LABS: Glucose Point of Care 187 mg/dl (65-105)
[2024-04-06] MEDS: PHARMACIST COMMUNICATION ORDER 1 EACH XX (18:54)
[2024-04-06] MEDS: HEPARIN SODIUM IV CONT (18:54)
[2024-04-06] MEDS: PERITONEAL DIALYSIS IV CONT (18:54)
[2024-04-06 20:47] VITALS: PULSE 70
[2024-04-06] MEDS: ATORVASTATIN 40 MG TABLET 80 MG PO (20:47)
[2024-04-06] MEDS: LOPERAMIDE HCL 2 MG CAPSULE 4 MG PO (20:47)
[2024-04-06 21:59] LABS: Glucose Point of Care 233 mg/dl (65-105)
[2024-04-06 22:00] VITALS: BP 173/84; PULSE 70; RESP 18; TEMP 37.1; O2SAT 98
[2024-04-07] MEDS: LEVOTHYROXINE SODIUM 112 MCG TABLET PO (05:47)
[2024-04-07] MEDS: METOCLOPRAMIDE HCL 10 MG TABLET PO (05:47)
[2024-04-07] MEDS: VANCOMYCIN HCL 125 MG ORAL CAPSULE PO ×4 (05:47→23:47)
[2024-04-07 06:00] VITALS: BP 117/65; PULSE 56; RESP 18; TEMP 36.7; O2SAT 96
[2024-04-07 07:34] LABS: Basophils Percent Auto 0.2 % (0.2-1.2); Eosinophils Percent Auto 0.6 % (0-4.4); Hematocrit 29.4 % (42.0-52.0); Hemoglobin 9.1 g/dL (14.0-18.0); Immature Granulocyte Absolute 0.47 K/mm3 (0.00-0.031); Lymphocytes Absolute Auto 0.77 K/mm3 (0.9-3.2); Lymphocytes Percent Auto 14.7 % (18.3-44.2); Mean Corpuscular Hemoglobin 30.3 pg (26-34); Mean Platelet Volume 11.5 fl (7.4-10.4); Monocytes Absolute Auto 0.8 K/mm3 (0.1-0.6); Monocytes Percent Auto 15.2 % (2.6-8.5); Neutrophils Absolute Auto 3.2 K/mm3 (1.3-6.7); Neutrophils Percent Auto 60.3 % (45.5-73.1); Platelet Count Result 171 k/mm3 (150-375); Red Cell Distribution Width 15.6 % (11.5-14.5); White Blood Count 5.3 K/mm3 (4.5-10.0)
[2024-04-07 07:52] LABS: Alanine Aminotransferase 39 U/L (6-50); Albumin Level 2.9 g/dL (3.5-5.1); Alkaline Phosphatase 60 U/L (38-126); Anion Gap 11 mmol/L (4-12); Aspartate Amino Transferase 48 U/L (17-59); Bilirubin,Total 0.5 mg/dL (0.2-1.3); Blood Urea Nitrogen 40 mg/dL (9-20); Calcium 8.6 mg/dL (8.4-10.2); Carbon Dioxide 30 mmol/L (22-30); Chloride 96 mmol/L (98-107); Estimated CRCL calculation 8 ml/min; Estimated Glomerular Filt Rate 5; Glucose 263 mg/dL (65-110); Magnesium 1.3 mg/dL (1.6-2.3); Potassium 2.9 mmol/L (3.4-5.0); Sodium 137 mmol/L (137-145)
[2024-04-07 08:11] LABS: Glucose Point of Care 247 mg/dl (65-105)
[2024-04-07] MEDS: CALCIUM ACETATE 667 MG TABLET 2001 MG PO ×3 (09:38→17:38)
[2024-04-07] MEDS: SACCHAROMYCES BOULARDII 250 MG CAPSULE PO ×2 (09:38→17:38)
[2024-04-07] MEDS: OPTI-GEN TAB 1 TABLET PO ×2 (09:38→21:26)
[2024-04-07 09:39] VITALS: PULSE 58
[2024-04-07] MEDS: carvediloL 25 MG TABLET PO ×2 (09:39→21:25)
[2024-04-07] MEDS: GABAPENTIN 300 MG CAPSULE PO ×3 (09:39→17:38)
[2024-04-07] MEDS: dilTIAZem HCL CD 120 MG CAP.24HR PO ×2 (09:41→21:26)
[2024-04-07] MEDS: PANTOPRAZOLE 40 MG TABLET PO ×2 (09:41→21:26)
[2024-04-07] MEDS: metOLazone 5 MG TABLET PO (09:41)
[2024-04-07] MEDS: FUROSEMIDE 80 MG TABLET 160 MG PO ×2 (09:41→14:39)
[2024-04-07] MEDS: AMOXICILLIN/CLAVULANATE K 500-125 MG TAB 1 TABLET PO ×2 (09:42→21:25)
[2024-04-07] MEDS: HEPARIN SODIUM 5,000 UNITS/ML VIAL 5000 UNITS SUB-Q ×2 (09:42→21:30)
[2024-04-07] MEDS: hydrALAZINE 10 MG TABLET PO ×2 (09:42→17:38)
[2024-04-07] MEDS: ASPIRIN 81 MG ENTERIC TABLET PO (09:42)
[2024-04-07] MEDS: lisinopriL 20 MG TABLET PO ×2 (09:42→21:26)
[2024-04-07] MEDS: POTASSIUM CHLORIDE 20 MEQ PACKET (FOR LIQUID) PO (09:43)
[2024-04-07] MEDS: INSULIN ASPART (*BKC) 100 UNITS/ML SUB-Q ×3 (09:44→17:39)
[2024-04-07] MEDS: INSULIN GLARGINE (*BKC) 100 UNITS/ML 30 UNITS SUB-Q ×2 (09:45→21:30)
[2024-04-07 11:36] LABS: Glucose Point of Care 210 mg/dl (65-105)
[2024-04-07] MEDS: ACETAMINOPHEN 325 MG TABLET 650 MG PO (12:23)
[2024-04-07] MEDS: VITAMIN B CMPLX/VIT C/FOLIC AC 1 CAPSULE 1 CAP PO (12:23)
[2024-04-07] MEDS: FENOFIBRATE NANOCRYSTALLIZED 145 MG TABLET PO (12:23)
[2024-04-07] MEDS: CHOLECALCIFEROL 5,000 UNITS TABLET 5000 UNITS BY MOUTH (12:24)
[2024-04-07] MEDS: MAGNESIUM SULF 1 GM/D5W 100 ML 1 GM/100 ML BAG IVPB (12:25)
[2024-04-07 12:29] VITALS: BP 113/54; PULSE 55; RESP 18; O2SAT 97
--- NOTE | 2024-04-07 13:29 | PM.IMPN ---
Progress Note: A&P Assessment and Plan (1) Altered mental status: Code(s): R41.82 - Altered mental status, unspecified Status: Acute Assessment and Plan: AMS appears resolved ? secondary to sepsis Cultures are negative to date CT head and L/s is nl DC iv Abx cultures are negative to date covid, flu rsv negative. fever better watch today and dc carlos home with HH services pt feels he is not well enough to go home today (2) Hypertension: Qualifiers: Hypertension type: primary hypertension Qualified Code(s): I10 - Essential (primary) hypertension Code(s): I10 - Essential (primary) hypertension Status: Chronic Assessment and Plan: Stable on current medications, BP is 105/ 60 (3) Anxiety: Code(s): F41.9 - Anxiety disorder, unspecified Status: Acute Assessment and Plan: Stable on current medications (4) Hyperlipemia: Code(s): E78.5 - Hyperlipidemia, unspecified Status: Acute Assessment and Plan: Stable on current medications (5) End-stage renal disease on peritoneal dialysis: Code(s): N18.6 - End stage renal disease; Z99.2 - Dependence on renal dialysis Status: Chronic Assessment and Plan: Continue with dialysis. Nephrology rounding (6) C. difficile colitis: Code(s): A04.72 - Enterocolitis due to Clostridium difficile, not specified as recurrent Status: Acute Assessment and Plan: Continue vancomycin oral c diff is negative. diarrhea stopped (7) Diabetes mellitus: Code(s): E11.9 - Type 2 diabetes mellitus without complications Status: Chronic Assessment and Plan: Stable on current medication, will continue current treatment. Plan Dysphagia - sseems resovled. chronic anemia Sleep apnea - pt wears CPAP at night DVT prop - continue lovenox Subjective Date/time seen: 04/07/24 13:29 Interval history: 61-year-old male who lives at home with his family, on peritoneal dialysis was brought in ER for evaluation of mental status change. Patient presents here with altered mental status, according to he usually gets slightly cold after dinner and ate it was the same today, but she noticed that he was shivering more and seemed a little slow to words. Pt admitted with AMS secondary to sepsis ? suspected peritonitis ? suspected UTI Pt UC is negative and BC prelim is negative peritoneal fluid was negative CT head and L/s are negative PMH of HTN, HLD, ESRD CDiff recently and DM pt had small bout of diarrhea yesterday fever has stopped pt doing better less confused creat is 9 watch labs carlos and dc home with HH services nephrology rounding Review of Systems Review of Systems: less confused All systems reviewed & are unremarkable except as noted in HPI and below (the history and physical exam) Exam Narrative: Exam Narrative: Well developed well-nourished in no acute distress Skin is warm and dry without rash Head normocephalic atraumatic Neck supple and flexible Eyes normal sclerae and conjunctivae Lungs symmetric and clear to auscultation and percussion Heart regular rate and rhythm without rub or gallop Abdomen bowel sounds positive soft nontender, no HSM, masses, or bruits. Peritoneal dialysis catheter in situ Extremities no cyanosis, clubbing, or edema Pulses 2+ equal in radial arteries Psychological not anxious or depressed Neuro alert and oriented x3 motor 5/5 cranial nerves 2-12 intact Objective Data Vital Signs Vital Signs: Vital Signs - 24 hr 04/06/24 15:05 04/06/24 20:00 04/06/24 20:47 Temperature 36.2 C L Pulse Rate 67 70 Respiratory Rate 16 Blood Pressure 140/67 Pulse Oximetry 96 Oxygen Delivery Room Air 04/06/24 22:00 04/07/24 06:00 04/07/24 09:38 Temperature 37.1 C 36.7 C Pulse Rate 70 56 L Respiratory Rate 18 18 Blood Pressure 173/84 H 117/65 Pulse Oximetry 98 96 Oxygen Delivery Room Air 04/07/24 09:39 04/07/24 09:58 04/07/24 12:29 Temperature Pulse Rate 58 L 55 L Respiratory Rate 18 Blood Pressure 113/54 L Pulse Oximetry 97 Oxygen Delivery Room Air Intake/Output Intake/Output: Intake & Output 04/04/24 04/05/24 04/06/24 04/07/24 23:59 23:59 23:59 23:59 Intake Total 830 754 523 6362 Output Total 1737 988 200 Balance -907 -3 798 900 Meds/Results Medications: Active Medications Generic Name Dose Route Start Last Admin Trade Name Freq PRN Reason Stop Dose Admin Acetaminophen 650 mg 04/04/24 06:50 04/07/24 12:23 Acetaminophen 325 Mg Tablet PO 650 mg Q4H PRN Administration Fever Hydrocodone Bitart/Acetaminophen 1 tab 04/03/24 10:43 Hydrocodone/Acetaminophen (*Crx) 5-325 Mg Tablet PO Q6H PRN pain (scale score 4-6) Amoxicillin/Clavulanate Potassium 1 tablet 04/05/24 18:00 04/07/24 09:42 Amoxicillin/Clavulanate K 500-125 Mg Tab PO 04/12/24 09:01 1 tablet Q12HR [facility]ERMAINE Administration Aspirin 81 mg 04/03/24 10:55 04/07/24 09:42 Aspirin 81 Mg Enteric Tablet PO 81 mg DAILY [facility]ERMA[facility] Administration Atorvastatin Calcium 80 mg 04/03/24 21:00 04/06/24 20:47 Atorvastatin 40 Mg Tablet PO 80 mg HS [facility] Administration Calcium Acetate 2,001 mg 04/03/24 12:00 04/07/24 12:24 Calcium Acetate 667 Mg Tablet PO 2,001 mg TIDWM [facility] Administration Carvedilol 25 mg 04/03/24 10:55 04/07/24 09:39 Carvedilol 25 Mg Tablet PO 25 mg Q12HR [facility] Administration Clonidine HCl 1 patch 04/16/24 09:00 Clonidine 0.2 Mg/24 Hr Patch TRANSDERM Fr@0900 [facility] Dextrose 12.5 gm 04/03/24 11:32 Dextrose 50% 25 Gm/50 Ml Syringe IV PUSH PRN PRN Hypoglycemia Protocol Diltiazem HCl 120 mg 04/03/24 11:30 04/07/24 09:41 Diltiazem Hcl Cd 120 Mg Cap.24hr PO 120 mg Q12HR [facility] Administration Epoetin Mati-epbx 10,000 units 04/06/24 09:00 04/06/24 13:39 Epoetin Mati-Epbx 10,000 Units/Ml Vial SUB-Q 10,000 units TUTHSA@09 [facility] Administration Fenofibrate 145 mg 04/03/24 12:00 04/07/24 12:23 Fenofibrate Nanocrystallized 145 Mg Tablet PO 145 mg DAILY@1200 [facility] Administration Furosemide 160 mg 04/03/24 11:20 04/07/24 09:41 Furosemide 80 Mg Tablet PO 160 mg BID@0800,1400 [facility] Administration Gabapentin 300 mg 04/03/24 13:00 04/07/24 12:24 Gabapentin 300 Mg Capsule PO 300 mg TID [facility] Administration Glucagon 1 mg 04/03/24 11:32 Glucagon For Inj 1 Mg Vial IM PRN PRN Hypoglycemia Protocol Glucose 15 gm 04/03/24 11:32 Glucose Oral Gel 15 Gm Of Glucse In 37.5 Gm Tube PO PRN PRN Hypoglycemia Protocol Heparin Sodium (Porcine) 5,000 units 04/03/24 11:30 04/07/24 09:42 Heparin Sodium 5,000 Units/Ml Vial SUB-Q 5,000 units Q12HR [facility]ERMAINE Administration Hydralazine HCl 10 mg 04/03/24 13:00 04/07/24 09:42 Hydralazine 10 Mg Tablet PO 10 mg TID [facility] Administration Dextrose 1,000 mls @ 100 mls/hr 04/03/24 11:32 Dextrose 5% 1,000 Ml IVPB PRN PRN Hypoglycemia Protocol Heparin Sodium (Porcine) 1,250 2,501.25 mls @ 0 mls/hr 04/06/24 18:00 units/ Peritoneal Dialysis IV CONT Solution .Q0M JERMAINE Insulin Aspart 2 - 5 units 04/03/24 12:00 04/07/24 12:25 Insulin Aspart (*Bkc) 100 Units/Ml SUB-Q 2 units TIDWM [facility] Administration Protocol Insulin Aspart 1 - 2 units 04/03/24 21:00 04/06/24 20:52 Insulin Aspart (*Bkc) 100 Units/Ml SUB-Q 1 units HS [facility] Administration Protocol Insulin Glargine 30 units 04/03/24 11:20 04/07/24 09:45 Insulin Glargine (*Bkc) 100 Units/Ml SUB-Q 30 units Q12HR [facility]ER[facility]INE Administration Levothyroxine Sodium 112 mcg 04/03/24 11:20 04/07/24 05:47 Levothyroxine Sodium 112 Mcg Tablet PO 112 mcg DAILY@0630 [facility] Administration Lisinopril 20 mg 04/03/24 11:20 04/07/24 09:42 Lisinopril 20 Mg Tablet PO 20 mg Q12HR [facility] Administration Lorazepam 0.5 mg 04/03/24 11:37 Lorazepam (*Crx) 0.5 Mg Tablet PO Q6H PRN Anxiety Metoclopramide HCl 10 mg 04/03/24 11:25 04/07/24 05:47 Metoclopramide Hcl 10 Mg Tablet PO 10 mg DAILY@0630 [facility] Administration Metolazone 5 mg 04/03/24 11:25 04/07/24 09:41 Metolazone 5 Mg Tablet PO 5 mg DAILY [facility] Administration Metoprolol Tartrate 5 mg 04/05/24 11:19 Metoprolol Tartrate Inj 5 Mg/5 Ml Vial IV PUSH TID PRN Heart Rate- High Multivitamins/Minerals 1 tablet 04/03/24 10:45 04/07/24 09:38 Opti-Gen Tab PO 1 tablet Q12HR [facility] Administration Pantoprazole Sodium 40 mg 04/03/24 11:20 04/07/24 09:41 Pantoprazole 40 Mg Tablet PO 40 mg Q12HR [facility]ER[facility] Administration Potassium Chloride 20 meq 04/06/24 09:00 04/07/24 09:43 Potassium Chloride 20 Meq Packet (For Liquid) PO 20 meq DAILY [facility] Administration Saccharomyces Boulardii 250 mg 04/04/24 17:00 04/07/24 09:38 Saccharomyces Boulardii 250 Mg Capsule PO 250 mg BID [facility] Administration Vancomycin HCl 125 mg 04/03/24 12:00 04/07/24 12:25 Vancomycin Hcl 125 Mg Oral Capsule PO 125 mg Q6HR [facility] Administration Vitamin B Complex/Folic Acid 1 cap 04/03/24 12:00 04/07/24 12:23 Vitamin B Cmplx/Vit C/Folic Ac 1 Capsule PO 1 cap DAILY@1200 [facility] Administration Vitamin D 5,000 units 04/03/24 12:00 04/07/24 12:24 Cholecalciferol 5,000 Units Tablet BY MOUTH 5,000 units DAILY@1200 [facility] Administration Radiology Results: ITS Impressions Chest X-Ray 04/02/24 21:43 IMPRESSION: Mild pulmonary vascular congestion, without focal infiltrate or effusion. Head CT 04/03/24 19:54 Impression: No acute intracranial hemorrhage or suspicious mass effect. Inflammatory sinus disease. Labs Labs: Laboratory Results - last 24 hr 04/06/24 04/06/24 04/07/24 17:14 20:34 06:42 WBC 5.3 RBC 3.00 L Hgb 9.1 L Hct 29.4 L MCV 98.0 MCH 30.3 MCHC 31.0 L RDW 15.6 H Plt Count 171 MPV 11.5 H Immature Gran % (Auto) 9.0 H Neut % (Auto) 60.3 Lymph % (Auto) 14.7 L [place]er % (Auto) 15.2 H Eos % (Auto) 0.6 Baso % (Auto) 0.2 Lymph # (Auto) 0.77 L [place]er # (Auto) 0.8 H Eos # (Auto) 0.0 Baso # (Auto) 0.0 Abs Immat Gran (auto) 0.47 H Absolute Neuts (auto) 3.2 Absolute Nucleated RBC 0.000 Nucleated RBC % 0.0 Sodium 137 Potassium 2.9 L Chloride 96 L Carbon Dioxide 30 Anion Gap 11 BUN 40 H Creatinine 9.68 H Estim Creat Clear Calc 8 Estimated GFR 5 L Glucose 263 H POC Capillary Glucose 187 H 233 H Calcium 8.6 Magnesium 1.3 L Total Bilirubin 0.5 AST 48 ALT 39 Alkaline Phosphatase 60 Total Protein 6.0 L Albumin 2.9 L 04/07/24 04/07/24 07:52 11:29 WBC RBC Hgb Hct MCV MCH MCHC RDW Plt Count MPV Immature Gran % (Auto) Neut % (Auto) Lymph % (Auto) [place]er % (Auto) Eos % (Auto) Baso % (Auto) Lymph # (Auto) [place]er # (Auto) Eos # (Auto) Baso # (Auto) Abs Immat Gran (auto) Absolute Neuts (auto) Absolute Nucleated RBC Nucleated RBC % Sodium Potassium Chloride Carbon Dioxide Anion Gap BUN Creatinine Estim Creat Clear Calc Estimated GFR Glucose POC Capillary Glucose 247 H 210 H Calcium Magnesium Total Bilirubin AST ALT Alkaline Phosphatase Total Protein Albumin Quality VTE Prophylaxis VTE prophylaxis: pharmacologic ordered
--- NOTE | 2024-04-07 14:16 | PM.PNNEP ---
Subjective Date/time seen: 04/07/24 14:16 Interval history: Follow-up for end stage renal disease on peritoneal dialysis. Tolerated peritoneal dialysis treatment overnight without any issues or problems (CCPD supervised and seen at 2:05PM); Objective Data Vital Signs Vital Signs: Vital Signs Temp Pulse Resp BP Pulse Ox O2 Del Method 04/07/24 14:09 Room Air 04/07/24 12:29 55 L 18 113/54 L 97 04/07/24 09:58 Room Air 04/07/24 09:39 58 L 04/07/24 09:38 Room Air 04/07/24 06:00 98.1 F 56 L 18 117/65 96 04/06/24 22:00 98.8 F 70 18 173/84 H 98 04/06/24 20:47 70 04/06/24 20:00 Room Air Intake/Output Intake/Output: Intake & Output 04/04/24 04/05/24 04/06/24 04/07/24 23:59 23:59 23:59 23:59 Intake Total 830 801 241 1669 Output Total 1737 988 200 Balance -907 -3 798 1140 Meds/Results Medications: Active Medications Generic Name Dose Route Start Last Admin Trade Name Freq PRN Reason Stop Dose Admin Acetaminophen 650 mg 04/04/24 06:50 04/07/24 12:23 Acetaminophen 325 Mg Tablet PO 650 mg Q4H PRN Administration Fever Hydrocodone Bitart/Acetaminophen 1 tab 04/03/24 10:43 Hydrocodone/Acetaminophen (*Crx) 5-325 Mg Tablet PO Q6H PRN pain (scale score 4-6) Amoxicillin/Clavulanate Potassium 1 tablet 04/05/24 18:00 04/07/24 09:42 Amoxicillin/Clavulanate K 500-125 Mg Tab PO 04/12/24 09:01 1 tablet Q12HR JERMAINE Administration Aspirin 81 mg 04/03/24 10:55 04/07/24 09:42 Aspirin 81 Mg Enteric Tablet PO 81 mg DAILY JERMAINE Administration Atorvastatin Calcium 80 mg 04/03/24 21:00 04/06/24 20:47 Atorvastatin 40 Mg Tablet PO 80 mg HS JERMAINE Administration Calcium Acetate 2,001 mg 04/03/24 12:00 04/07/24 17:38 Calcium Acetate 667 Mg Tablet PO 2,001 mg TIDWM JERMAINE Administration Carvedilol 25 mg 04/03/24 10:55 04/07/24 09:39 Carvedilol 25 Mg Tablet PO 25 mg Q12HR JERMAINE Administration Clonidine HCl 1 patch 04/16/24 09:00 Clonidine 0.2 Mg/24 Hr Patch TRANSDERM Fr@0900 [facility] Dextrose 12.5 gm 04/03/24 11:32 Dextrose 50% 25 Gm/50 Ml Syringe IV PUSH PRN PRN Hypoglycemia Protocol Diltiazem HCl 120 mg 04/03/24 11:30 04/07/24 09:41 Diltiazem Hcl Cd 120 Mg Cap.24hr PO 120 mg Q12HR JERMAINE Administration Epoetin Mati-epbx 10,000 units 04/06/24 09:00 04/06/24 13:39 Epoetin Mati-Epbx 10,000 Units/Ml Vial SUB-Q 10,000 units TUTHSA@09 [facility] Administration Fenofibrate 145 mg 04/03/24 12:00 04/07/24 12:23 Fenofibrate Nanocrystallized 145 Mg Tablet PO 145 mg DAILY@1200 [facility] Administration Furosemide 160 mg 04/03/24 11:20 04/07/24 14:39 Furosemide 80 Mg Tablet PO 160 mg BID@0800,1400 [facility] Administration Gabapentin 300 mg 04/03/24 13:00 04/07/24 17:38 Gabapentin 300 Mg Capsule PO 300 mg TID [facility] Administration Glucagon 1 mg 04/03/24 11:32 Glucagon For Inj 1 Mg Vial IM PRN PRN Hypoglycemia Protocol Glucose 15 gm 04/03/24 11:32 Glucose Oral Gel 15 Gm Of Glucse In 37.5 Gm Tube PO PRN PRN Hypoglycemia Protocol Heparin Sodium (Porcine) 5,000 units 04/03/24 11:30 04/07/24 09:42 Heparin Sodium 5,000 Units/Ml Vial SUB-Q 5,000 units Q12HR JERMAINE Administration Hydralazine HCl 10 mg 04/03/24 13:00 04/07/24 17:38 Hydralazine 10 Mg Tablet PO 10 mg TID [facility] Administration Dextrose 1,000 mls @ 100 mls/hr 04/03/24 11:32 Dextrose 5% 1,000 Ml IVPB PRN PRN Hypoglycemia Protocol Heparin Sodium (Porcine) 1,250 2,501.25 mls @ 0 mls/hr 04/06/24 18:00 units/ Peritoneal Dialysis IV CONT Solution .Q0M JERMAINE Insulin Aspart 2 - 5 units 04/03/24 12:00 04/07/24 17:39 Insulin Aspart (*Bkc) 100 Units/Ml SUB-Q 2 units TIDWM JERMAINE Administration Protocol Insulin Aspart 1 - 2 units 04/03/24 21:00 04/06/24 20:52 Insulin Aspart (*Bkc) 100 Units/Ml SUB-Q 1 units HS JERMAINE Administration Protocol Insulin Glargine 30 units 04/03/24 11:20 04/07/24 09:45 Insulin Glargine (*Bkc) 100 Units/Ml SUB-Q 30 units Q12HR JERMAINE Administration Levothyroxine Sodium 112 mcg 04/03/24 11:20 04/07/24 05:47 Levothyroxine Sodium 112 Mcg Tablet PO 112 mcg DAILY@0630 JERMAINE Administration Lisinopril 20 mg 04/03/24 11:20 04/07/24 09:42 Lisinopril 20 Mg Tablet PO 20 mg Q12HR JERMAINE Administration Lorazepam 0.5 mg 04/03/24 11:37 Lorazepam (*Crx) 0.5 Mg Tablet PO Q6H PRN Anxiety Metoclopramide HCl 10 mg 04/03/24 11:25 04/07/24 05:47 Metoclopramide Hcl 10 Mg Tablet PO 10 mg DAILY@0630 JERMAINE Administration Metolazone 5 mg 04/03/24 11:25 04/07/24 09:41 Metolazone 5 Mg Tablet PO 5 mg DAILY JERMAINE Administration Metoprolol Tartrate 5 mg 04/05/24 11:19 Metoprolol Tartrate Inj 5 Mg/5 Ml Vial IV PUSH TID PRN Heart Rate- High Multivitamins/Minerals 1 tablet 04/03/24 10:45 04/07/24 09:38 Opti-Gen Tab PO 1 tablet Q12HR JERMAINE Administration Pantoprazole Sodium 40 mg 04/03/24 11:20 04/07/24 09:41 Pantoprazole 40 Mg Tablet PO 40 mg Q12HR JERMAINE Administration Potassium Chloride 20 meq 04/06/24 09:00 04/07/24 09:43 Potassium Chloride 20 Meq Packet (For Liquid) PO 20 meq DAILY JERMAINE Administration Saccharomyces Boulardii 250 mg 04/04/24 17:00 04/07/24 17:38 Saccharomyces Boulardii 250 Mg Capsule PO 250 mg BID JERMAINE Administration Vancomycin HCl 125 mg 04/03/24 12:00 04/07/24 17:38 Vancomycin Hcl 125 Mg Oral Capsule PO 125 mg Q6HR JERMAINE Administration Vitamin B Complex/Folic Acid 1 cap 04/03/24 12:00 04/07/24 12:23 Vitamin B Cmplx/Vit C/Folic Ac 1 Capsule PO 1 cap DAILY@1200 JERMAINE Administration Vitamin D 5,000 units 04/03/24 12:00 04/07/24 12:24 Cholecalciferol 5,000 Units Tablet BY MOUTH 5,000 units DAILY@1200 JERMAINE Administration Radiology Results: ITS Impressions Chest X-Ray 04/02/24 21:43 IMPRESSION: Mild pulmonary vascular congestion, without focal infiltrate or effusion. Head CT 04/03/24 19:54 Impression: No acute intracranial hemorrhage or suspicious mass effect. Inflammatory sinus disease. Labs Labs: Laboratory Tests 04/07/24 06:42 04/07/24 06:42 Calcium 8.6 Magnesium 1.3 L Total Bilirubin 0.5 AST 48 ALT 39 Alkaline Phosphatase 60 Total Protein 6.0 L Albumin 2.9 L
[2024-04-07 16:53] LABS: Glucose Point of Care 210 mg/dl (65-105)
[2024-04-07 17:37] VITALS: BP 155/72
[2024-04-07] MEDS: PERITONEAL DIALYSIS IV CONT ×4 (21:18)
[2024-04-07] MEDS: HEPARIN SODIUM IV CONT ×4 (21:18)
[2024-04-07] MEDS: PHARMACIST COMMUNICATION ORDER 1 EACH XX (21:18)
[2024-04-07 21:25] VITALS: PULSE 63
[2024-04-07] MEDS: ATORVASTATIN 40 MG TABLET 80 MG PO (21:25)
[2024-04-07] MEDS: WATER FOR IRRIGATION, STERILE 1,000 ML BOTTLE 1000 ML (21:26)
[2024-04-07 21:28] LABS: Glucose Point of Care 169 mg/dl (65-105)
[2024-04-07 21:49] VITALS: BP 167/79; PULSE 63; RESP 20; TEMP 36.8; O2SAT 98
[2024-04-08 06:00] VITALS: BP 150/77; PULSE 60; RESP 18; TEMP 36.4; O2SAT 95
[2024-04-08] MEDS: METOCLOPRAMIDE HCL 10 MG TABLET PO (06:31)
[2024-04-08] MEDS: VANCOMYCIN HCL 125 MG ORAL CAPSULE PO ×2 (06:31→12:47)
[2024-04-08] MEDS: LEVOTHYROXINE SODIUM 112 MCG TABLET PO (06:31)
[2024-04-08 08:04] LABS: Glucose Point of Care 255 mg/dl (65-105)
[2024-04-08] MEDS: INSULIN ASPART (*BKC) 100 UNITS/ML SUB-Q (08:18)
[2024-04-08 08:23] VITALS: PULSE 62
[2024-04-08] MEDS: FUROSEMIDE 80 MG TABLET 160 MG PO (08:23)
[2024-04-08] MEDS: AMOXICILLIN/CLAVULANATE K 500-125 MG TAB 1 TABLET PO (08:23)
[2024-04-08] MEDS: ASPIRIN 81 MG ENTERIC TABLET PO (08:23)
[2024-04-08] MEDS: carvediloL 25 MG TABLET PO (08:23)
[2024-04-08] MEDS: SACCHAROMYCES BOULARDII 250 MG CAPSULE PO (08:24)
[2024-04-08] MEDS: POTASSIUM CHLORIDE 20 MEQ PACKET (FOR LIQUID) PO (08:24)
[2024-04-08] MEDS: lisinopriL 20 MG TABLET PO (08:24)
[2024-04-08] MEDS: PANTOPRAZOLE 40 MG TABLET PO (08:24)
[2024-04-08] MEDS: OPTI-GEN TAB 1 TABLET PO (08:24)
[2024-04-08] MEDS: hydrALAZINE 10 MG TABLET PO (08:24)
[2024-04-08] MEDS: HEPARIN SODIUM 5,000 UNITS/ML VIAL 5000 UNITS SUB-Q (08:24)
[2024-04-08] MEDS: dilTIAZem HCL CD 120 MG CAP.24HR PO (08:24)
[2024-04-08] MEDS: metOLazone 5 MG TABLET PO (08:24)
[2024-04-08] MEDS: GABAPENTIN 300 MG CAPSULE PO (08:24)
[2024-04-08] MEDS: CALCIUM ACETATE 667 MG TABLET 2001 MG PO (08:27)
[2024-04-08] MEDS: EPOETIN ALFA-EPBX 10,000 UNITS/ML VIAL 10000 UNITS SUB-Q (08:28)
[2024-04-08] MEDS: INSULIN GLARGINE (*BKC) 100 UNITS/ML 30 UNITS SUB-Q (08:29)
--- NOTE | 2024-04-08 10:14 | P.DS_ITS ---
DS: Admitting Diagnosis Discharge Date 04/08/2024 Admitting Diagnosis Altered mental status Sepsis unknown sourse DS: Discharge Diagnosis Discharge Diagnosis (1) Altered mental status: Code(s): R41.82 - Altered mental status, unspecified Status: Acute Assessment and Plan: -AMS appears resolved ? secondary to sepsis ? -Cultures are negative to date -CT head and L/s is nl -DC iv Abx cultures are negative to date -covid, flu rsv negative. -fever resolved. - Discahrged home with home health service (2) Hypertension: Qualifiers: Hypertension type: primary hypertension Qualified Code(s): I10 - Essential (primary) hypertension Code(s): I10 - Essential (primary) hypertension Status: Chronic Assessment and Plan: Stable on current medications, BP is stable (3) Anxiety: Code(s): F41.9 - Anxiety disorder, unspecified Status: Acute Assessment and Plan: Stable on current medications (4) Hyperlipemia: Code(s): E78.5 - Hyperlipidemia, unspecified Status: Acute Assessment and Plan: continued home medications (5) End-stage renal disease on peritoneal dialysis: Code(s): N18.6 - End stage renal disease; Z99.2 - Dependence on renal dialysis Status: Chronic Assessment and Plan: Continue with dialysis. Nephrology rounding (6) C. difficile colitis: Code(s): A04.72 - Enterocolitis due to Clostridium difficile, not specified as recurrent Status: Acute Assessment and Plan: - Continue vancomycin oral - c diff is negative. - diarrhea stopped (7) Diabetes mellitus: Code(s): E11.9 - Type 2 diabetes mellitus without complications Status: Chronic Assessment and Plan: - Stable on current medication, will continue current treatment. Plan Discussed with this patient his labs, his overall exam. He is requesting to be discharged. He is to continue with oral vancomycin until completed. Continue with peritoneal dialysis as instructed. Follow up with Nephrology and PCP as instructed. DS: Summary Hospital Course Hospital Course: This is a 61-year-old male with medical history of C Diff, BPH, CAD, End Stage Kidney failure on peritoneal dialysis, SHABNAM with CPAP, DM with insulin depdence, Renal cell carcinoma, GERD, hypothyroidism, Cirrhosis, dyslipidemia,CHF ( diastolic), HTN, who lives at home with his family, on peritoneal dialysis was brought in ER for evaluation of mental status change. Patient presented with altered mental status, according to he usually gets slightly cold after dinner and ate it was the same today, but she noticed that he was shivering more and seemed a little slow to words. Patient able to answer some of my questions, including that he has no pain anywhere, nausea or vomiting In the ER workup noted white blood cell count of 4.8, hemoglobin 8.1 hematocrit 28.8 platelet 169, sodium 138 potassium 3.4, chloride 97, BUN 43, creatinine 9.86, GFR 5. Calcium 8.4 Mag was 1.3. Chest xray noted Mild pulmonary vascular congestion, without focal infiltrate or effusion, CT head noted no abnormalities. Urinalysis noted protien 2+, Glucose 1+, Leuko Trace, WBC 6-10, Nitrate Neg. Urine cultures were done and antibiotic was started. Patient was admitted to the floor for further evaluation treatment. Patient admitted with AMS secondary to sepsis, suspected peritonitis, suspected UTI? Patient Urine Culture is negative and Blood Culture prelim is negative peritoneal fluid was negative. CT head and L/s are negative Patient had small bout of diarrhea and fever resolved. with patient history, CDiff was tested. Start oral Vancomycin. Nephrology rounding, and ruled out peritonitis. He was transitioned to oral antibiotics successfully. Patient was agreeable to be discharged home with home health once stable. Labs remained stable, his fever has resolved, he is back to baseline. After discussion we will continue patient on Augmentin for 4 days, again tender oral vancomycin for 5 more days. The patient is also followed by Nephrology as well as his PCP outpatient. He will continue his labs as well as a outpatient. He is agreeable to this plan. Answered all questions to his satisfaction he is discharged home with outpatient follow-up, to continue peritoneal dialysis at home as per regular settings, and regular home medications. Status at Discharge Cognitive/behavioral status at discharge: at baseline Functional status at discharge: independent ambulation Overall status at discharge: patient is back to baseline Time Spent with Patient Time attestation: Total time spent providing and/or coordinating discharge services: Time spent: Greater than 30 minutes (50 minutes) Exam Const: General: cooperative, healthy appearing, no acute distress, alert and awake Nutritional Appearance: well nourished Orientation/consciousness: oriented to person, oriented to place, oriented to time and patient oriented x3 Limitations: no limitations HENMT: Head: normal to inspection and normocephalic Eyes: General: appearance normal, both eyes and all related structures Neck: Neck: normal visual inspection, full ROM and no lymphadenopathy Chest: Chest palpation & inspection: normal inspection of the chest Resp: Effort & Inspection: normal respiratory effort Auscultation: clear to auscultation bilaterally Cardio: Jugular venous distension: no JVD Palpation: normal PMI Rate: regular rate Rhythm: regular rhythm Heart sounds: S1 normal heart sound present and S2 normal heart sound present Peripheral pulses: Peripheral pulses 2+ throughout GI: Inspection: normal to inspection GI Palp: Yes Soft to palpation Auscultation: normal bowel sounds Skin: General skin exam: normal color and no rashes or lesions noted Neuro: General: oriented to person, oriented to place, oriented to time and patient oriented x3 Cranial nerves: Yes CN's II-XII intact bilaterally Extrem: General: normal to inspection, full ROM and capillary refill normal Psych: Appearance: grossly normal Mental Status: mental status grossly normal Speech and movement: Normal speech and movement present DS: Data Data Completed and Pending Completed studies during hospitalization: Chest Xray 04/02/2024 IMPRESSION: Mild pulmonary vascular congestion, without focal infiltrate or effusion. CT HEAD 04/03/24 FINDINGS: The ventricles are enlarged. The dilatation of the ventricles is proportional to the degree of sulcal prominence. Decreased attenuation is identified within the periventricular white matter, likely secondary to microvascular ischemic disease. There is no mass, mass effect or midline shift. Basal ganglia calcifications are detected. There is no abnormal extra-axial fluid collection or intracranial hemorrhage. Mucoperiosteal thickening within the bilateral maxillary sinuses. Near complete opacification of the bilateral ethmoid and sphenoid sinuses. Congenitally absent frontal sinuses. The mastoid air cells are well aerated. No acute displaced fractures within the overlying cranium. Impression: No acute intracranial hemorrhage or suspicious mass effect. Inflammatory sinus disease. Labs on day of discharge: Labs from last 24 hours 04/08/24 04/07/24 04/07/24 07:36 20:45 16:45 POC Capillary Glucose 255 H 169 H 210 H 04/07/24 11:29 POC Capillary Glucose 210 H Discharge Plan Discharge Attending physician on discharge: Elaine Cardenas Consulting providers: Alan Mccall Discharging Clinician: Elaine Cardenas Anticipated Discharge Date/Time: 04/08/24 10:05 Patient Disposition: Home Health Service Activity: may shower, no driving and as tolerated Diet: diabetic and renal Discharge Instructions: Care Coordination: Patient to have [facility] for PT/OT eval and treat, and 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. Their phone number is [phone], if you have any questions; they will contact you to schedule their first visit. RN Please fax discharge instructions to [phone]. Continue current medications, continue vancomycin 4 times daily until completed, continue with Augmentin twice daily for 4 days. Continue dialysis as previous. He will need follow-up with primary care provider in next 2-3 days. continue p otassium, will need to have labs redone, follow-up with your wood heel flap trimmer for further renal function management. Return emergency department if any chest pain, shortness of breath, or other worrisome sign or symptom. Patient Instructions: Antibiotic Form Patient Language: Romanian Stand Alone Forms: General Discharge Information Follow-up/Referrals: Jeff Strickland MD [Primary Care Provider] - (in one week) Discharge Medications: New amoxicillin-pot clavulanate 500-125 mg tablet 1 tablet PO Q12HR 4 Days Qty: 8 0RF vancomycin 125 mg Capsule 125 mg PO Q6HR 5 Days Qty: 20 0RF potassium chloride 20 mEq Packet 20 meq PO DAILY 5 Days Qty: 5 0RF Continued tadalafil 5 mg tablet 5 mg PO HS aspirin [Sami Low Dose Aspirin] 81 mg Tablet,Delayed Release (Dr/Ec) 81 mg PO DAILY ICaps AREDS2 (copper citrate) 250 mg-200 unit -12.5 mg-1 mg Tablet 1 tablet PO Q12H carvedilol [Coreg] 25 mg tablet 25 mg PO BID (DME) pen needle, diabetic [BD Ultra-Fine Micro Pen Needle] 32 gauge x 1/4 needle See Rx Instructions .ROUTE .MEDSUPPLY Qty: 200 11RF Rx Instructions: inject five times daily insulin glargine [Basaglar KwikPen U-100 Insulin] 100 unit/mL (3 mL) insulin pen 30 unit subcut Q12H Rx Instructions: morning and hs lisinopril 20 mg tablet 20 mg PO BID lansoprazole 30 mg capsule,delayed release(DR/EC) 30 mg PO BID Qty: 60 3RF clonidine 0.2 mg/24 hr patch weekly 1 patch transdermal WEEKLY insulin aspart U-100 [Novolog FlexPen U-100 Insulin] 100 unit/mL (3 mL) insulin pen See Rx Instructions .ROUTE .COMPLEX Rx Instructions: sliding scale tidwm cholecalciferol (vitamin D3) [Vitamin D3] 125 mcg (5,000 unit) Tablet 125 mcg PO QNOON furosemide 80 mg Tablet 160 mg PO BID diltiazem HCl 120 mg capsule,extended release 12 hr 120 mg PO BID atorvastatin 80 mg tablet 80 mg PO HS levothyroxine 112 mcg tablet 112 mcg PO DAILY metolazone 5 mg tablet 5 mg PO DAILY hydrocodone-acetaminophen 5-325 mg tablet 1 tablet PO Q6H PRN (Reason: pain (scale score 4-6)) fenofibrate nanocrystallized 145 mg tablet 145 mg PO QNOON calcium acetate(phosphat bind) 667 mg capsule 2,001 mg PO TIDWM gabapentin 100 mg capsule 300 mg PO TID (DME) PDP HoldingsTouch Ultra Test Strip MISCELLANEOUS Dialyvite 800-Ultra D 0.8-2,000 mg-unit tablet 800 tablet PO .noon insulin aspart U-100 [Novolog FlexPen U-100 Insulin] 100 unit/mL (3 mL) insulin pen 1 sliding scale dose subcut TID insulin glargine [Basaglar KwikPen U-100 Insulin] 100 unit/mL (3 mL) insulin pen 30 unit subcut BID lorazepam [Ativan] 0.5 mg tablet 0.5 mg PO PRN PRN (Reason: Anxiety) metoclopramide HCl [Reglan] 10 mg tablet 10 mg PO DAILY hydralazine 10 mg tablet 10 mg PO TID Date of admission: 04/04/24 15:19 Primary Care Provider: Jeff Strickland Admitting Provider: Krystal Johnson Attending physician on admission: Krystal Johnson Condition: Stable Hospitalist MIPS Heart Failure (Exclusion) Patient has history of Heart Transplant or Left Ventricular Assistive Device?: No IF YES, STOP HERE Heart Failure (Qualifier) Patient has current or prior documentation of LVEF less than or equal to 40%, or mod/servere depressed LVSF?: No IF NO, STOP HERE
[2024-04-08 10:22] LABS: Hematocrit 30.5 % (42.0-52.0); Hemoglobin 9.7 g/dL (14.0-18.0); Mean Corpuscular HGB Conc 31.8 g/dl (32-36); Mean Corpuscular Hemoglobin 30.7 pg (26-34); Mean Corpuscular Volume 96.5 fl (80-100); Mean Platelet Volume 11.3 fl (7.4-10.4); Platelet Count Result 177 k/mm3 (150-375); Red Blood Count 3.16 M/mm3 (4.6-6.20); Red Cell Distribution Width 15.5 % (11.5-14.5); White Blood Count 7.5 K/mm3 (4.5-10.0)
[2024-04-08 10:37] LABS: Anion Gap 12 mmol/L (4-12); Blood Urea Nitrogen 40 mg/dL (9-20); Carbon Dioxide 30 mmol/L (22-30); Chloride 96 mmol/L (98-107); Estimated CRCL calculation 8 ml/min; Estimated Glomerular Filt Rate 5; Glucose 244 mg/dL (65-110); Potassium 3.4 mmol/L (3.4-5.0); Sodium 138 mmol/L (137-145)
[2024-04-08 11:35] LABS: Glucose Point of Care 213 mg/dl (65-105)
[2024-04-08 12:07] VITALS: BP 150/77; PULSE 62; RESP 18; TEMP 36.4
[2024-04-12 06:26] LABS: Eosinophils Peritoneal Fluid 0 %; Lymphocytes Peritoneal Fluid 42 %
== END 2024-04-08 12:55 | disposition home health service (06) | DRG 871 ==
LOC: ANHED 04-03 00:42 → ANH3MEDSUR 04-03 08:22
PROVIDERS: Family Medicine; Internal Medicine; Internal Medicine Nephrology; Admitting Provider Internal Medicine; Emergency Provider Emergency Medicine; PCP Family Medicine; Visit Provider Nurse Practitioner Family
DX: A41.9 Sepsis, unspecified organism (principal); N18.6 End stage renal disease; I13.2 Hypertensive heart and chronic kidney disease with heart failure and with stage 5 chronic kidney disease, or end stage renal disease; I50.32 Chronic diastolic (congestive) heart failure; E11.22 Type 2 diabetes mellitus with diabetic chronic kidney disease; R41.9 Unspecified symptoms and signs involving cognitive functions and awareness; E78.5 Hyperlipidemia, unspecified; D64.9 Anemia, unspecified; F41.9 Anxiety disorder, unspecified; I25.10 Atherosclerotic heart disease of native coronary artery without angina pectoris; N40.0 Benign prostatic hyperplasia without lower urinary tract symptoms; G47.33 Obstructive sleep apnea (adult) (pediatric); K74.60 Unspecified cirrhosis of liver; K21.9 Gastro-esophageal reflux disease without esophagitis; E03.9 Hypothyroidism, unspecified; Z20.822 Contact with and (suspected) exposure to COVID-19; E87.6 Hypokalemia; F41.8 Other specified anxiety disorders; M19.90 Unspecified osteoarthritis, unspecified site; R13.10 Dysphagia, unspecified; Z96.651 Presence of right artificial knee joint; Z86.19 Personal history of other infectious and parasitic diseases; Z99.2 Dependence on renal dialysis; Z79.4 Long term (current) use of insulin; Z85.528 Personal history of other malignant neoplasm of kidney; Z95.5 Presence of coronary angioplasty implant and graft; Z90.49 Acquired absence of other specified parts of digestive tract; Z90.5 Acquired absence of kidney
CPT/HCPCS: 36415; 70450; 71045; 80048; 80053; 80069; 81001; 82140; 82607; 82746; 82948; 83605; 83735; 84443; 85025; 85027; 85610; 85730; 87040; 87070; 87086; 87205; 87493; 87637; 87641; 89051; 90945; 94660; 96365; 96366; 96367; 97161; 97165; 99285; A9270; G0378; J0696; J1644; J1815; J2543; J3370; J3475; J3480; J7040; Q5105

== ENCOUNTER 2024-05-07 09:55 | Emergency (ER) | payer MEDICARE, SELFPAY ==
[2024-05-07] VITALS (28 sets, daily range): BP systolic 144–195; BP diastolic 65–92; PULSE 57–65; RESP 16; TEMP 36.7; O2SAT 93–100
--- OUTSIDE RECORDS SUMMARY | 2024-05-07 11:02 | XMS_ITS | Encounter Summary ---
Author Organization [facility] Address [facility] [place] [address] Care Team Providers Care Urban Sociologist Name Role Phone Deandre Bojorquez MD Unavailable [phone] Jeff Strickland MD Primary Care Provider Encounter Details Date Type Department Care Team (Late st Contact Info) Description 10/28/2023 Lab Requisition [facility] MAIN LAB [address] [place] [id number] Alan Davenport MD [facility] [facility] [place] [address] Social History Tobacco Use Types Packs/Day Years [...] Care Team (Late st Contact Info) Description 06/16/2024 10:00 AM CDT Appointment [facility] NUCLEAR MEDICINE [address] [place] [phone] Alan Davenport MD [address] OF [facility] [place] [address] 06/16/2024 11:00 AM CDT Appointment [facility] NUCLEAR MEDICINE [address] [place] [phone] Alan Davenport MD [address] OF [facility] [place] [address] 06/16/2024 12:20 PM CDT Appointment [facility] CAT SCAN [facility] [place] [address] Alan Davenport MD [address] OF [facility] [address] 06/16/2024 1:00 PM CDT Appointment [facility] ECHO [address] [place] [address] Alan Davenport MD [address] OF [facility] [address] 06/16/2024 2:00 PM CDT Appointment [facility] US [address] [place] [address] Alan Davenport MD [address] OF [facility] [address] 06/16/2024 2:45 PM CDT Appointment [facility] DIAGNOSTIC RAD OP [address] [place] [address] Alan Davenport MD [address] [facility] [address] 06/16/2024 2:50 PM CDT Appointment [facility] LAB OP DRAW STATION [address] [place] [address] Alan Davenport MD [address] [facility] [place] [address] 06/23/2024 1:00 PM CDT Clinical Support [facility] TRANSPLANT [address] [place] [address] 08/04/2024 11:30 AM CDT Appointment [facility] MRI [facility] [place] [address] Thomas Mendoza MD [address] [facility] [address] [place] [address] 08/04/2024 1:30 PM CDT Office Visit [facility] - Urology [address] [place] [phone] Thomas Mendoza MD [facility] [address] [place] [address] documented as of this encounter Procedures Procedure Name Priority Date/Time Associated Diagnosis Comments HOLD HLA SPECIMEN Routine 10/22/2023 3:5 0 PM CDT documented in this encounter Results * HOLD HLA SPECIMEN (10/22/2023 3:50 PM CDT) Hold HLA Specimen 10/28/2023 5:00 PM CDT [facility] Comment:The Hold HLA specime n has been received into the lab and will be held for 5 years at 4 degrees. Blood BLOOD SPECIMEN / Unknown 10/22/2023 3:50 PM CDT 10/28/2023 3:50 PM CDT Alan Davenport MD LAB - BLOOD BANK ORD ERABLES [facility] [address] [place] [address] documented in this encounter Visit Diagnoses Not on filedocumented in this encounter Care Teams Urban Sociologist Relationship Specialty Start Date End Date Jeff Strickland MD [address] [place] [address] PCP - General 03/05/18 [place] [address] [place] [address] Orthopedic Surgery 03/28/17 documented as of this encounter
--- OUTSIDE RECORDS SUMMARY | 2024-05-07 11:02 | XMS_ITS | Encounter Summary ---
Author Organization [facility] Address [facility]3 [facility] [place] [address] Care Team Providers Care Coding Assistant Name Role Phone Deandre Bojorquez MD Unavailable [phone] Jeff Strickland MD Primary Care Provider [phone] Encounter Details Date Type Department Care Team (Late st Contact Info) Description 11/21/2023 Lab Requisition [facility] MAIN LAB [address] [place] [phone] Alan Davenport MD [facility]1 [facility] [place] [address] Social History Tobacco Use Types Packs/Day Years [...] Info) Description 06/16/2024 10:00 AM CDT Appointment [facility] NUCLEAR MEDICINE [address] [place] [phone] Alan Daevnport MD [address] [facility] [place] [address] 06/16/2024 11:00 AM CDT Appointment [facility] NUCLEAR MEDICINE [address] [place] [phone] Alan Davenport MD [address] [facility] [place] [address] 06/16/2024 12:20 PM CDT Appointment [facility] CAT SCAN [facility] [place] [address] Alan Davenport MD [address] [facility] [place] [address] 06/16/2024 1:00 PM CDT Appointment [facility] ECHO [address] [place] [address] Alan Davenport MD [address] [facility] [place] [address] 06/16/2024 2:00 PM CDT Appointment [facility] US [address] [place] [address] Alan Davenport MD [address] [facility] [place] [address] 06/16/2024 2:45 PM CDT Appointment [facility] DIAGNOSTIC RAD OP [address] [place] [address] Alan Davenport MD [address] [facility] [place] [address] 06/16/2024 2:50 PM CDT Appointment [facility] LAB OP DRAW STATION [address] [place] [address] Alan Davenport MD [address] [facility] DIV OF [facility] [place] [address] 06/23/2024 1:00 PM CDT Clinical Support [facility] TRANSPLANT [address] [place] [address] 08/04/2024 11:30 AM CDT Appointment [facility] MRI [address] [place] [address] Thomas Mendoza MD [address] [facility] 2L DIV [place] [address] 08/04/2024 1:30 PM CDT Office Visit [facility] - Urology [address] [place] [phone] Thomas Mendoza MD [facility]5 [facility] 2L [place] [address] documented as of this encounter Procedures Procedure Name Priority Date/Time Associated Diagnosis Comments HOLD HLA SPECIMEN Routine 11/18/2023 12: 16 PM CDT documented in this encounter Results * HOLD HLA SPECIMEN (11/18/2023 12:16 PM CDT) Hold HLA Specimen 11/21/2023 1:31 PM CDT [facility] ([facility]) Comment:The Hold HLA specime n has been received into the lab and will be held for 5 years at 4 degrees. Blood BLOOD SPECIMEN / Unknown 11/18/2023 12:16 PM CDT 11/21/2023 12:17 PM CDT Alan Davenport MD LAB - BLOOD BANK ORD ERABLES [facility] ([facility]) [address] documented in this encounter Visit Diagnoses Not on filedocumented in this encounter Care Teams Coding Assistant Relationship Specialty Start Date End Date Jeff Strickland MD [address] [place] [address] PCP - General 03/05/18 [place] [address] [place] [address] Orthopedic Surgery 03/28/17 documented as of this encounter
--- OUTSIDE RECORDS SUMMARY | 2024-05-07 11:02 | XMS_ITS | Encounter Summary ---
Author Organization [facility] Address [address] [facility] [place] [address] Care Team Providers Care Wet Process Operator Name Role Phone Deandre Bojorquez MD Unavailable Jeff Strickland MD Primary Care Provider [phone] Encounter Details Date Type Department Care Team (Late st Contact Info) Description 02/04/2024 Lab Requisition [facility] MAIN LAB [address] [place] [phone] Alan Davenport MD [facility]1 [facility] OF ABD TRANS[facility] [address] Social History Tobacco Use Types Packs/Day Years [...] Info) Description 06/16/2024 10:00 AM CDT Appointment [facility] NUCLEAR MEDICINE [address] [place] [phone] Alan Davenport MD [address] DIV OF [facility] TRANSPL[place] [address] 06/16/2024 11:00 AM CDT Appointment [facility] NUCLEAR MEDICINE [address] [place] [phone] Alan Davenport MD [address] DIV OF [facility] TRANSPL[place] [address] 06/16/2024 12:20 PM CDT Appointment [facility] CAT SCAN [facility]1 [place] [address] Alan Davenport MD [address] DIV [facility] TRANSPL[place] [address] 06/16/2024 1:00 PM CDT Appointment [facility] ECHO [address] [place] [address] Alan Davenport MD [address] DIV OF [facility] TRANSPL[place] [address] 06/16/2024 2:00 PM CDT Appointment [facility] US [address] [place] [address] Alan Davenport MD [address] DIV OF [facility] TRANS[place] [address] 06/16/2024 2:45 PM CDT Appointment [facility] DIAGNOSTIC RAD OP [address] [place] [address] Alan Davenport MD [address] [facility] DIV [facility] TRANS[place] [address] 06/16/2024 2:50 PM CDT Appointment [facility] LAB OP DRAW STATION [address] [place] [address] Alan Davenport MD [address] [facility] DIV OF [facility] TRANSPL[place] [address] 06/23/2024 1:00 PM CDT Clinical Support [facility] TRANSPLANT [address] [place] [address] 08/04/2024 11:30 AM CDT Appointment [facility] MRI [facility]1 [place] [address] Thomas Mendoza MD [address] [facility] 2L DIV [place] [address] 08/04/2024 1:30 PM CDT Office Visit [facility] - Urology [address] [place] [phone] Thomas Mendoza MD [address] [place] [address] 2L DIV [place] [address] documented as of this encounter Procedures Procedure Name Priority Date/Time Associated Diagnosis Comments HOLD HLA SPECIMEN Routine 01/27/2024 3:2 3 PM SHIRT CREASER documented in this encounter Results * HOLD HLA SPECIMEN (01/27/2024 3:23 PM SHIRT CREASER) Hold HLA Specimen 02/04/2024 4:31 PM SHIRT CREASER [facility] ([facility]) Comment:The Hold HLA specime n has been received into the lab and will be held for 5 years at 4 degrees. Blood BLOOD SPECIMEN / Unknown 01/27/2024 3:23 PM SHIRT CREASER 02/04/2024 3:23 PM SHIRT CREASER Alan Davenport MD LAB - BLOOD BANK ORD ERABLES [facility] [address] [place] [address], [facility] documented in this encounter Visit Diagnoses Not on filedocumented in this encounter Care Teams Wet Process Operator Relationship Specialty Start Date End Date Jeff Strickland MD [address] [place] [address] PCP - General 03/05/18 [place] [address] [place] [address] Orthopedic Surgery 03/28/17 documented as of this encounter
--- OUTSIDE RECORDS SUMMARY | 2024-05-07 11:02 | XMS_ITS | Encounter Summary ---
Author Organization [facility] Address [facility]3 [facility] [place] [address] Care Team Providers Care Feather Duster Winder Name Role Phone Deandre Bojorquez MD Unavailable [phone] Jeff Strickland MD Primary Care Provider [phone] Encounter Details Date Type Department Care Team (Late st Contact Info) Description 09/30/2023 Lab Requisition [facility] MAIN LAB [address] [place] [phone] Alan Davenport MD [facility]1 [facility] [place] [address] Social History Tobacco Use Types Packs/Day Years [...] Info) Description 06/16/2024 10:00 AM CDT Appointment [facility] NUCLEAR MEDICINE [address] [place] [phone] Alan Davenport MD [address] DIV OF [facility] [place] [address] 06/16/2024 11:00 AM CDT Appointment [facility] NUCLEAR MEDICINE [address] [place] [phone] Alan Davenport MD [address] DIV OF [facility] [place] [address] 06/16/2024 12:20 PM CDT Appointment [facility] CAT SCAN [facility] [place] [address] Alan Davenport MD [address] DIV OF [facility] [place] [address] 06/16/2024 1:00 PM CDT Appointment [facility] ECHO [address] [place] [address] Alan Davenport MD [address] DIV OF [facility] [place] [address] 06/16/2024 2:00 PM CDT Appointment [facility] US [address] [place] [address] Alan Davenport MD [address] DIV OF [facility] [place] [address] 06/16/2024 2:45 PM CDT Appointment [facility] DIAGNOSTIC RAD OP [address] [place] [address] Alan Davenport MD [address] [facility] DIV [facility] [place] [address] 06/16/2024 2:50 PM CDT Appointment [facility] LAB OP DRAW STATION [address] [place] [address] Alan Davenport MD [address] [facility] DIV [facility] [place] [address] 06/23/2024 1:00 PM CDT Clinical Support [facility] TRANSPLANT [address] [place] [address] 08/04/2024 11:30 AM CDT Appointment [facility] MRI [facility] [place] [address] Thomas Mendoza MD [address] [facility] 2L DIV [place] [address] 08/04/2024 1:30 PM CDT Office Visit [facility] Physician Group - Urology [address] [place] [phone] Thomas Mendoza MD [facility]5 [facility] 2L DIV [place] [address] documented as of this encounter Procedures Procedure Name Priority Date/Time Associated Diagnosis Comments HOLD HLA SPECIMEN Routine 09/24/2023 3:2 7 PM CDT documented in this encounter Results * HOLD HLA SPECIMEN (09/24/2023 3:27 PM CDT) Hold HLA Specimen 09/30/2023 4:32 PM CDT [facility] ([facility]) Comment:The Hold HLA specime n has been received into the lab and will be held for 5 years at 4 degrees. Blood BLOOD SPECIMEN / Unknown 09/24/2023 3:27 PM CDT 09/30/2023 3:27 PM CDT Alan Davenport MD LAB - BLOOD BANK ORD ERABLES [facility]) [address] [place] [address] documented in this encounter Visit Diagnoses Not on filedocumented in this encounter Care Teams Feather Duster Winder Relationship Specialty Start Date End Date Jeff Strickland MD [address] [place] [address] PCP - General 03/05/18 [place] [address] [place] [address] Orthopedic Surgery 03/28/17 documented as of this encounter
--- OUTSIDE RECORDS SUMMARY | 2024-05-07 11:02 | XMS_ITS | Referral Summary ---
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 REGISTERED PUBLIC HEALTH NURSE 04/12/2024 5:29 PM REGISTERED PUBLIC HEALTH NURSE Nicole Boo MD LAB POCT ORDERABLES - DEVIC E Final Result Performing Organization Address [facility] de Phone Number [facility] [address] [place] [address] * POCT glucose (04/12/2024 11:32 AM REGISTERED PUBLIC HEALTH NURSE) Glucose, POC 194 70 - 199 mg/dL Blood 04/12/2024 11:3 2 AM REGISTERED PUBLIC HEALTH NURSE 04/12/2024 11:32 AM REGISTERED PUBLIC HEALTH NURSE Nicole Boo MD LAB POCT ORDERABLES - DEVIC E Final Result Performing Organization Address [facility] de Phone Number [facility] [address] [place] [address] * POCT glucose (04/12/2024 7:54 AM REGISTERED PUBLIC HEALTH NURSE) Glucose, POC 166 70 - 199 mg/dL Blood 04/12/2024 7:54 AM REGISTERED PUBLIC HEALTH NURSE 04/12/2024 7:54 AM REGISTERED PUBLIC HEALTH NURSE Saul Engle MD LAB POCT ORDERABLES - DEVICE Fin al Result Performing Organization Address [facility] Co de Phone Number [facility] Department [place] [address] * (ABNORMAL) eGFR (04/12/2024 6:00 AM REGISTERED PUBLIC HEALTH NURSE) Pathologist [facility] eGFR 4(L) >=60 mL/min/1. 73 m2 Comment: Interpretive Data [...] Current interpretive data was last reviewed 2020. Blood 04/12/2024 6:00 AM REGISTERED PUBLIC HEALTH NURSE 04/12/2024 6:18 AM REGISTERED PUBLIC HEALTH NURSE Saul Engle MD LAB BLOOD ORDERABLES Final Resul t Performing Organization Address [facility] Co de Phone Number [facility] Department [place] [address] * (ABNORMAL) CBC without differential (04/12/2024 6:00 AM REGISTERED PUBLIC HEALTH NURSE) [facility] WBC 9.3 3.8 - 9.9 K/cumm Hgb 8.5(L) 13.0 - 17.5 g/dL [facility] Hct 25.6(L) 38.9 - 50.3 % [facility] Plt 225 150 - 400 K/cumm [facility] MPV 11.1 9.1 - 12.3 fL [facility] RBC 2.74(L) 4.30 - 5.80 M/cumm [facility] MCV 93.4 81.3 - 96.4 fL [facility] MCH 31.0 27.1 - 33.3 pg [facility] MCHC 33.2 32.3 - 35.7 g/dL [facility] RDW CV 15.7(H) 11.1 - 14.9 % [facility] RDW SD 52.7(H) 35.7 - 48.1 fL [facility] NRBC abs 0.02(H) 0.00 - 0.01 K/cumm [facility] Blood 04/12/2024 6:00 AM REGISTERED PUBLIC HEALTH NURSE 04/12/2024 6:18 AM REGISTERED PUBLIC HEALTH NURSE us Saul Engle MD LAB BLOOD ORDERABLES Final Resul t [facility] Department [place] [address] * (ABNORMAL) Comprehensive metabolic panel (04/12/2024 6:00 AM REGISTERED PUBLIC HEALTH NURSE) Sodium 140 135 - 145 mmol/L Potassium, pl 3.5 3.3 - 4.9 mmol/L [facility] Chloride 98 97 - 110 mmol/L [facility] CO2 27 22 - 32 mmol/L [facility] Anion gap 15 2 - 15 mmol/L [facility] BUN 49(H) 6 - 25 mg/dL [facility] Creatinine 11.24(H) 0.80 - 1.30 mg/dL [facility] Glucose 153 70 - 199 mg/dL [facility] Comment: Interpretive Data Fasting glucose >/= 126 mg/dl is diagnostic for diabetes. Fasting is defined as no caloric intake for at least 8 hours. Fasting glucose between 100 mg/dl to 125 mg/dl is diagnostic of prediabetes. In a patient with classic symptoms of hyperglycemia or hyperglycemic crisis, a random glucose >/= 200 mg/dl is diagnostic for diabetes. In the absence of unequivocal hyperglycemia, results should be confirmed by repeat testing. The classification and Diagnosis of Diabetes Diabetes Care 2021; 46: S19-S40. Current interpretive data was last revised 2022. Calcium 8.4(L) 8.5 - 10.3 mg/dL [facility] Bilirubin, total 0.2 0.1 - 1.2 mg/dL [facility] Protein, pl 5.5(L) 6.5 - 8.5 g/dL [facility] Albumin 3.0(L) 3.5 - 5.0 g/dL [facility] Alk phos 41 40 - 130 Units/L [facility] ALT 23 7 - 55 Units/L [facility] AST 30 10 - 50 Units/L [facility] Blood 04/12/2024 6:00 AM REGISTERED PUBLIC HEALTH NURSE 04/12/2024 6:18 AM REGISTERED PUBLIC HEALTH NURSE Saul Engle MD LAB BLOOD ORDERABLES Final Resul t Performing Organization Address [facility] de Phone Number [facility] Department [place] [address] * POCT glucose (04/12/2024 4:35 AM REGISTERED PUBLIC HEALTH NURSE) Glucose, POC 169 70 - 199 mg/dL Blood 04/12/2024 4:35 AM REGISTERED PUBLIC HEALTH NURSE 04/12/2024 4:35 AM REGISTERED PUBLIC HEALTH NURSE Saul Engle MD LAB POCT ORDERABLES - DEVICE Fin al Result Performing Organization Address [facility] de Phone Number [facility] [place] [address] * POCT glucose (04/12/2024 12:34 AM REGISTERED PUBLIC HEALTH NURSE) Glucose, POC 184 70 - 199 mg/dL Blood 04/12/2024 12:3 4 AM REGISTERED PUBLIC HEALTH NURSE 04/12/2024 12:34 AM REGISTERED PUBLIC HEALTH NURSE Saul Engle MD LAB POCT ORDERABLES - DEVICE Fin al Result Performing Organization Address [facility]/ZIP Co de Phone Number [facility] [place] [address] * POCT glucose (04/11/2024 9:13 PM REGISTERED PUBLIC HEALTH NURSE) Glucose, POC 169 70 - 199 mg/dL Blood 04/11/2024 9:13 PM REGISTERED PUBLIC HEALTH NURSE 04/11/2024 9:13 PM REGISTERED PUBLIC HEALTH NURSE Saul Engle MD LAB POCT ORDERABLES - DEVICE Fin al Result Performing Organization Address [facility] Co de Phone Number [facility] [place] [address] * POCT glucose (04/11/2024 6:04 PM REGISTERED PUBLIC HEALTH NURSE) Glucose, POC 161 70 - 199 mg/dL Blood 04/11/2024 6:04 PM REGISTERED PUBLIC HEALTH NURSE 04/11/2024 6:04 PM REGISTERED PUBLIC HEALTH NURSE Saul Engle MD LAB POCT ORDERABLES - DEVICE Fin al Result Performing Organization Address [facility] Co de Phone Number [facility] [address] [place] [address] * (ABNORMAL) POCT glucose (04/11/2024 2:25 PM REGISTERED PUBLIC HEALTH NURSE) Glucose, POC 201(H) 70 - 199 mg/dL Comment:Glu2: RN/MD Notified Glucose comment 1 Glu2: RN/MD Notified [facility] Blood 04/11/2024 2:25 PM REGISTERED PUBLIC HEALTH NURSE 04/11/2024 2:25 PM REGISTERED PUBLIC HEALTH NURSE Nicole Boo MD LAB POCT ORDERABLES - DEVIC E Final Result Performing Organization Address City/[facility]/ZIP Co de Phone Number [facility] [place] [address] * POCT glucose (04/11/2024 12:10 PM REGISTERED PUBLIC HEALTH NURSE) Glucose, POC 193 70 - 199 mg/dL Blood 04/11/2024 12:1 0 PM REGISTERED PUBLIC HEALTH NURSE 04/11/2024 12:10 PM REGISTERED PUBLIC HEALTH NURSE Nicole Boo MD LAB POCT ORDERABLES - DEVIC E Final Result Performing Organization Address [facility] de Phone Number [facility] Department [place] [address] * C. difficile testing Stool (04/11/2024 8:41 AM REGISTERED PUBLIC HEALTH NURSE) [facility] Result Negative Negative Toxin Result Negative Negative [facility] C. diff result Negative, free toxin Negative, free toxin [facility] C. diff interp Negative for toxigenic Clostridioides (Clostridium) difficile. Analysis was performed using a glutamate dehydrogenase antigen detection assay combined with a C. difficile toxin detection assay. [facility] Stool 04/11/2024 8:41 AM REGISTERED PUBLIC HEALTH NURSE 04/11/2024 11:19 AM REGISTERED PUBLIC HEALTH NURSE Nicole Boo MD LAB MICROBIOLOGY - GENERAL ORDERABLES Final Result Performing Organization Address [facility] de Phone Number [facility] Department [place] [address] * H. pylori antigen, stool Stool (04/11/2024 8:41 AM REGISTERED PUBLIC HEALTH NURSE) Pathologist [facility] H. pylori Ag, stool Negative Negative Comment: Interpretative Data Testing performed at the [facility] using the Yeelionian HpSA lateral flow immunoassay that detects Helicobacter pylori antigen in feces. This test is FDA cleared and its performance characteristics have been verified by the performing laboratory. False negative H. pylori antigen results may occur in patients on antimicrobials, proton pump inhibitors, or bismuth preparations; if clinically indicated, testing should be repeated on a new specimen two weeks after discontinuing these treatments. Interpretative data last revised February 2020. Stool 04/11/2024 8:41 AM REGISTERED PUBLIC HEALTH NURSE 04/11/2024 11:20 AM REGISTERED PUBLIC HEALTH NURSE Nicole Boo MD LAB MICROBIOLOGY - GENERAL ORDERABLES Final Result Performing Organization Address [facility] [place] [address] * Infection Prevention VRE Culture Stool (04/11/2024 8:41 AM REGISTERED PUBLIC HEALTH NURSE) Report Final Report: Negative Stool 04/11/2024 8:41 AM REGISTERED PUBLIC HEALTH NURSE 04/11/2024 1:46 PM REGISTERED PUBLIC HEALTH NURSE Narrative [facility] - 04/13/2024 2:39 PM REGISTERED PUBLIC HEALTH NURSE Surveillance culture for Infection Prevention purposes only; results indicate colonization, not infection requiring treatment. Testing performed by [facility] ([phone]). Nicole Boo MD LAB MICROBIOLOGY - GENERAL ORDERABLES Final Result Performing Organization Address [facility] Co de Phone Number [facility] [address] [place] [address] * Stool culture Stool Rectum (04/11/2024 8:41 AM REGISTERED PUBLIC HEALTH NURSE) Direct Specimen Exam Shiga Toxin Testing: Antigen detection assay for Shiga-toxin NEGATIVE for Shiga Toxin 1 and Shiga Toxin 2. Report Final Report: No growth of enteric bacterial pathogens [facility] Stool (Rectum) 04/11/2024 8: 41 AM REGISTERED PUBLIC HEALTH NURSE 04/11/2024 11:21 AM REGISTERED PUBLIC HEALTH NURSE Narrative [facility] - 04/15/2024 10:42 AM REGISTERED PUBLIC HEALTH NURSE Testing performed by [facility] ([phone]). Routine stool cultures include procedures to detect Salmonella, Shigella, Edwardsiella, Aeromonas, Pleisiomonas, Campylobacter, Yersinia, E. coli O157, and Shiga-like toxins. Vibrio is cultured only upon special request. If Vibrio is suspected, please call the laboratory at [phone]. Interpretive data was last updated June 24, 2016. Nicole Boo MD LAB MICROBIOLOGY - GENERAL ORDERABLES Final Result Performing Organization Address City/[facility] Co de Phone Number [facility] Department [place] [address] * POCT glucose (04/11/2024 8:30 AM REGISTERED PUBLIC HEALTH NURSE) Pathologist [facility] Glucose, POC 150 70 - 199 mg/dL Blood 04/11/2024 8:30 AM REGISTERED PUBLIC HEALTH NURSE 04/11/2024 8:30 AM REGISTERED PUBLIC HEALTH NURSE Nicole Boo MD LAB POCT ORDERABLES - DEVIC E Final Result Performing Organization Address [facility] [place] [address] * (ABNORMAL) Troponin I high-sensitivity 6-hour (04/11/2024 4:47 AM REGISTERED PUBLIC HEALTH NURSE) [facility] Trop I hs 193(H) <=35 ng/L Comment: Interpretive Data For further hscTnI resources including the diagnostic algorithm and an aid in interpretation, copy and paste this link: https://bjhlab.testcatalog.org/show/hsTrop-[email or web address] Current Interpretive Data last revised 2019. Trop I hs pct delta -13 % [facility] Trop I hs interp Equivocal [facility] Blood 04/11/2024 4:47 AM REGISTERED PUBLIC HEALTH NURSE 04/11/2024 5:05 AM REGISTERED PUBLIC HEALTH NURSE Roberto Medina MD LAB BLOOD ORDERABLES F inal Result Performing Organization Address [facility] Co de Phone Number [facility] [place] [address] * Cell Differential, Body Fluid (04/11/2024 3:51 AM REGISTERED PUBLIC HEALTH NURSE) Total cells diffed 100 cells Comment: Interpretive Data Unless otherwise specified, the reference range and other method performance specifications have not been established for CSF/Body Fluid tests. The test results should be integrated into the clinical context for interpretation. Current interpretive data was last revised on 2018. Neutrophils, fld 6 % [facility] Lymphs, fld 21 % [facility] Monocyte, fld 66 % [facility] Basophils, fld 1 % [facility] Macrophages, fld 2 % [facility] Mesothelial cells, fld 4 % [facility] Fluid 04/11/2024 3:51 AM REGISTERED PUBLIC HEALTH NURSE 04/11/2024 5:30 AM REGISTERED PUBLIC HEALTH NURSE Saul Engle MD LAB BODY FLUIDS AND STOOLS ORDER MICHELLE Final Result Performing Organization Address [facility] de Phone Number [facility] [address] [place] [address] * Cell count w/rflx diff, body fluid (04/11/2024 3:51 AM REGISTERED PUBLIC HEALTH NURSE) Specimen type, fld Dialysate Color, fld Straw [facility] Clarity, fld Clear Clear [facility] Nucleated cells, fld 21 /cumm [facility] Comment: Interpretive Data Unless otherwise specified, the reference range and other method performance specifications have not been established for CSF/Body Fluid tests. The test results should be integrated into the clinical context for interpretation. Current interpretive data was last revised on 2018. RBC, fld 0 /cumm [facility] Fluid 04/11/2024 3:51 AM REGISTERED PUBLIC HEALTH NURSE 04/11/2024 5:30 AM REGISTERED PUBLIC HEALTH NURSE Saul Engle MD LAB BODY FLUIDS AND STOOLS ORDER MICHELLE Final Result Performing Organization Address [facility] Co de Phone Number [facility] [place] [address] * Aerobic and anaerobic culture and gram stain Peritoneal dialysis fluid Peritoneum (04/11/2024 3:51 AM REGISTERED PUBLIC HEALTH NURSE) Direct Specimen Exam Stain: Cytospin Gram stain shows: Rare polymorphonuclear leukocytes seen. Other cellular material present. No organisms seen. Report Final Report: No growth [facility] Peritoneal dialysis fluid (Peritoneum) 04/11/2024 3:51 AM REGISTERED PUBLIC HEALTH NURSE 04/11/2024 6:13 AM REGISTERED PUBLIC HEALTH NURSE Narrative [facility] - 04/17/2024 12:22 PM REGISTERED PUBLIC HEALTH NURSE Fluid specimen received. Testing performed by [facility] ([phone]) Specimens submitted from normally sterile body sites will have all bacterial morphotypes identified. Specimens that contain grossly mixed breonna and/or are from body sites that are not normally sterile will be examined for Staphylococcus aureus, Pseudomonas aeruginosa, beta-hemolytic strep, vancomycin-resistant Enterococcus, Bacteroides, Parabacteroides, Clostridium perfringens and fungus. If any of these are isolated, the organism will be reported. Current interpretive data was last revised on 2019. Saul Engle MD LAB MICROBIOLOGY - GENERAL ORDER MICHELLE Final Result Performing Organization Address City/[facility]/ZIP Co de Phone Number [facility] Department [place] [address] * (ABNORMAL) POCT glucose (04/11/2024 3:43 AM REGISTERED PUBLIC HEALTH NURSE) Pathologist [facility] Glucose, POC 223(H) 70 - 199 mg/dL Blood 04/11/2024 3:43 AM REGISTERED PUBLIC HEALTH NURSE 04/11/2024 3:43 AM REGISTERED PUBLIC HEALTH NURSE Saul Engle MD LAB POCT ORDERABLES - DEVICE Fin al Result [facility] Department [place] [address] [place] [address] * (ABNORMAL) Troponin I high-sensitivity 4-hour (04/11/2024 3:41 AM REGISTERED PUBLIC HEALTH NURSE) Pathologist [facility] Trop I hs 192(H) <=35 ng/L Comment: Interpretive Data For further hscTnI resources including the diagnostic algorithm and an aid in interpretation, copy and paste this link: https://bjhlab.testcatalog.org/show/[email or web address] Current Interpretive Data last revised 2019. Trop I hs pct delta -14 % [facility] Trop I hs interp Equivocal [facility] Blood 04/11/2024 3:41 AM REGISTERED PUBLIC HEALTH NURSE 04/11/2024 4:09 AM REGISTERED PUBLIC HEALTH NURSE Roberto Medina MD LAB BLOOD ORDERABLES F inal Result Performing Organization Address [facility] de Phone Number [facility] Department [place] [address] * Sepsis Lactate w/ Reflex (04/11/2024 3:41 AM REGISTERED PUBLIC HEALTH NURSE) Sepsis Lactate 2.0 0.7 - 2.0 mmol/L Blood 04/11/2024 3:41 AM REGISTERED PUBLIC HEALTH NURSE 04/11/2024 3:48 AM REGISTERED PUBLIC HEALTH NURSE Roberto Medina MD LAB BLOOD ORDERABLES F inal Result Performing Organization Address [facility] de Phone Number [facility] Department [place] [address] * CT Abdomen Pelvis W Contrast (04/11/2024 2:21 AM REGISTERED PUBLIC HEALTH NURSE) Anatomical Region Laterality Modality Body N/A Computed Tomogra phy 04/11/2024 2:42 AM REGISTERED PUBLIC HEALTH NURSE Impressions 04/11/2024 1:21 PM REGISTERED PUBLIC HEALTH NURSE 1. Peritoneal dialysis catheter in place with expected, moderate volume intraperitoneal fluid. No pneumoperitoneum. 2. Multiple lesions of the kidneys including a solid lesion in the inferior pole of the left kidney and calcified cyst in the inferior pole of the left kidney. Further evaluation with MRI recommended if clinically appropriate. Recommend follow up of the Incidental renal nodule Additional Imaging In 6 Months with MRI if clinically appropriate. Dictated by: Janis Newton MD The radiology attending physician has personally reviewed this study, and had reviewed and/or edited this written report and agrees with it. Electronically signed by: Wallace Mederos M.D. Narrative 04/11/2024 1:21 PM REGISTERED PUBLIC HEALTH NURSE EXAMINATION: Computed tomography of the abdomen and pelvis with intravenous contrast HISTORY: 69-year-old male patient with past medical history of ESRD on peritoneal dialysis nightly, hypertension, hyperlipidemia, SHABNAM, CAD, presenting with fatigue and generalized weakness. TECHNIQUE: Transaxial computed tomographic images of the abdomen and pelvis were obtained with intravenous contrast according to the standard protocol after the uneventful administration of 90 mL Opti-Ray 350 intravenous contrast. COMPARISON: CT abdomen pelvis from 08/11/2023 FINDINGS: Lung bases are clear. Heart size is normal. Trace pericardial effusion. Mitral valve calcifications. Atherosclerotic calcifications of the coronary arteries. No suspicious hepatic lesions. Postsurgical changes of cholecystectomy. No intra or extrahepatic biliary ductal dilatation. The portal and superior mesenteric veins are patent. Calcifications in the spleen may represent sequelae of chronic granulomatous disease. There is a 1.5 cm hypoattenuating lesion in the spleen, which is unchanged from prior imaging. The pancreas is normal. The adrenal glands are normal. Postsurgical changes of right partial nephrectomy are noted. Again seen are multiple bilateral renal cysts, some of which demonstrate associated calcifications. A 2.7 cm lesion in the lower pole of the left kidney (series 2, image 130) is unchanged compared to prior imaging from 08/11/2023. There is a new focus of calcification within a 2.5 cm mixed attenuation cyst on the lower pole of the left kidney (series 4, image 85). The bladder is decompressed. The prostate is present. A peritoneal dialysis catheter is present. Moderate volume ascites. No evidence of bowel obstruction. No pneumoperitoneum Atherosclerotic calcifications of the abdominal aorta. The proximal celiac and superior mesenteric arteries are patent. Degenerative changes of the spine. Diffuse idiopathic skeletal hyperostosis thoracic spine with prominent lumbar osteophytes. No suspicious osseous lesions. Procedure Note Wallace Mederos MD - 04/11/2024 EXAMINATION: Computed tomography of the abdomen and pelvis with intravenous contrast HISTORY: 69-year-old male patient with past medical history of ESRD on peritoneal dialysis nightly, hypertension, hyperlipidemia, SHABNAM, CAD, presenting with fatigue and generalized weakness. TECHNIQUE: Transaxial computed tomographic images of the abdomen and pelvis were obtained with intravenous contrast according to the standard protocol after the uneventful administration of 90 mL Opti-Ray 350 intravenous contrast. COMPARISON: CT abdomen pelvis from 08/11/2023 FINDINGS: Lung bases are clear. Heart size is normal. Trace pericardial effusion. Mitral valve calcifications. Atherosclerotic calcifications of the coronary arteries. No suspicious hepatic lesions. Postsurgical changes of cholecystectomy. No intra or extrahepatic biliary ductal dilatation. The portal and superior mesenteric veins are patent. Calcifications in the spleen may represent sequelae of chronic granulomatous disease. There is a 1.5 cm hypoattenuating lesion in the spleen, which is unchanged from prior imaging. The pancreas is normal. The adrenal glands are normal. Postsurgical changes of right partial nephrectomy are noted. Again seen are multiple bilateral renal cysts, some of which demonstrate associated calcifications. A 2.7 cm lesion in the lower pole of the left kidney (series 2, image 130) is unchanged compared to prior imaging from 08/11/2023. There is a new focus of calcification within a 2.5 cm mixed attenuation cyst on the lower pole of the left kidney (series 4, image 85). The bladder is decompressed. The prostate is present. A peritoneal dialysis catheter is present. Moderate volume ascites. No evidence of bowel obstruction. No pneumoperitoneum Atherosclerotic calcifications of the abdominal aorta. The proximal celiac and superior mesenteric arteries are patent. Degenerative changes of the spine. Diffuse idiopathic skeletal hyperostosis thoracic spine with prominent lumbar osteophytes. No suspicious osseous lesions. IMPRESSION: 1. Peritoneal dialysis catheter in place with expected, moderate volume intraperitoneal fluid. No pneumoperitoneum. 2. Multiple lesions of the kidneys including a solid lesion in the inferior pole of the left kidney and calcified cyst in the inferior pole of the left kidney. Further evaluation with MRI recommended if clinically appropriate. Recommend follow up of the Incidental renal nodule Additional Imaging In 6 Months with MRI if clinically appropriate. Dictated by: Janis Newton MD The radiology attending physician has personally reviewed this study, and had reviewed and/or edited this written report and agrees with it. Electronically signed by: Wallace Mederos M.D. us Prerak Bhavesh Medina MD IMG CT PROCEDURES Kenna l Result * ECG 12-LEAD (04/11/2024 1:52 AM REGISTERED PUBLIC HEALTH NURSE) Narrative [facility] - 04/11/2024 1:52 AM REGISTERED PUBLIC HEALTH NURSE Olu Collins MD 04/11/2024 1:54 AM ECG 12 lead Date/Time: 04/11/2024 1:52 AM Performed by: Olu Collins MD Authorized by: Roberto Medina MD Rate: ECG rate: Rate 66, narrow complex, regular, sinus, no stemi. Procedure Note Olu Collins MD - 04/11/2024 1:52 AM CST Procedure ECG 12 lead Date/Time: 04/11/2024 1:52 AM Performed by: Olu Collins MD Authorized by: Roberto Medina MD Rate: ECG rate: Rate 66, narrow complex, regular, sinus, no stemi. Olu Collins MD 04/11/24 0154 Roberto Medina MD ECG ORDERABLES Final Result Performing Organization Address City/[facility] Co de Phone Number [facility] * (ABNORMAL) Troponin I high-sensitivity 2-hour (04/11/2024 1:48 AM REGISTERED PUBLIC HEALTH NURSE) Trop I hs 214(C) <=35 ng/L Comment: Previous critical value noted within 48 hours ago. Interpretive Data For further [facility] resources including the diagnostic algorithm and an aid in interpretation, copy and paste this link: [email or web address].testcatalog.org/show/[email or web address] Current Interpretive Data last revised 2019. Trop I hs pct delta -4 % [facility] Trop I hs interp Insignificant [facility] Blood 04/11/2024 1:48 AM REGISTERED PUBLIC HEALTH NURSE 04/11/2024 2:01 AM REGISTERED PUBLIC HEALTH NURSE Roberto Medina MD LAB BLOOD ORDERABLES F inal Result [facility] Department [place] [address] * [place] CRITICAL CARE ILL/INJURED PATIENT INIT 30-74 MIN (04/11/2024 1:29 AM REGISTERED PUBLIC HEALTH NURSE) Narrative Olu Collins MD - 04/11/2024 1:29 AM REGISTERED PUBLIC HEALTH NURSE Olu Collins MD 04/11/2024 5:14 AM Critical Care Performed by: Olu Collins MD Authorized by: Olu Collins MD Critical care provider statement: As reflected in the history, physical exam, orders, notes, and/or MDM, I was personally present while the patient was critically ill and provided critical care services for 35 minutes, excluding time involved in separately billable procedures. Critical care was necessary to treat or prevent imminent or life-threatening deterioration of the following condition(s): unstable vital signs undifferentiated shock sepsis Critical care was time spent by me providing the following: resuscitation with fluids obtain appropriate cultures I provided emergent necessary critical care medicine services to this patient. I ordered and reviewed test results and/or imaging studies. I spent time discussing the management of this critically ill patient with consultants and the medical staff. I spent time discussing the management and therapeutic options for this critically ill patient with the patient themselves or with the appropriate designated surrogate decision-maker. I spent time documenting in the medical record. us Olu Collins MD IN CLINIC/BEDSIDE ORDERABLES Final Result * XR Chest 1 Vw Portable (04/11/2024 1:01 AM REGISTERED PUBLIC HEALTH NURSE) Anatomical Region Laterality Modality Body, Chest N/A Computed Radiogr aphy 04/11/2024 1:48 AM REGISTERED PUBLIC HEALTH NURSE Impressions 04/11/2024 1:25 PM REGISTERED PUBLIC HEALTH NURSE Comparison to 04/11/2024 No pneumothorax. Small lung volumes with mild bibasilar atelectasis appear similar to prior exam. Unchanged atherosclerotic calcifications of the aortic arch. Heart size is unchanged. Sternal plates and screws are in unchanged position. Dictated by: Janis Newton MD The radiology attending physician has personally reviewed this study, and had reviewed and/or edited this written report and agrees with it. Electronically signed by: Wallace Mederos M.D. Narrative 04/11/2024 1:25 PM REGISTERED PUBLIC HEALTH NURSE EXAMINATION: 1 view chest radiograph Procedure Note Wallace Mederos MD - 04/11/2024 EXAMINATION: 1 view chest radiograph IMPRESSION: Comparison to 04/11/2024 No pneumothorax. Small lung volumes with mild bibasilar atelectasis appear similar to prior exam. Unchanged atherosclerotic calcifications of the aortic arch. Heart size is unchanged. Sternal plates and screws are in unchanged position. Dictated by: Janis Newton MD The radiology attending physician has personally reviewed this study, and had reviewed and/or edited this written report and agrees with it. Electronically signed by: Wallace Mederos M.D. us Prerak Bhavesh Medina MD IMG XR PROCEDURES Kenna l Result * (ABNORMAL) Sepsis Lactate w/ Reflex (04/11/2024 12:17 AM REGISTERED PUBLIC HEALTH NURSE) Sepsis Lactate 2.4(H) 0.7 - 2.0 mmol/L Blood 04/11/2024 12:1 7 AM REGISTERED PUBLIC HEALTH NURSE 04/11/2024 12:22 AM REGISTERED PUBLIC HEALTH NURSE us Prerak Bhaveshlala Medina MD LAB BLOOD ORDERABLES F inal Result [facility] Department [place] [address] * (ABNORMAL) Troponin I high-sensitivity series (baseline, 2hr, 4hr, 6hr) (04/10/2024 11:41 PM REGISTERED PUBLIC HEALTH NURSE) Trop I hs 223(C) <=35 ng/L Comment: Reviewed Interpretive Data For further [facility] resources including the diagnostic algorithm and an aid in interpretation, copy and paste this link: https://bjhlab.testcatalog.org/show/[email or web address] Current Interpretive Data last revised 2019. Blood 04/10/2024 11:4 1 PM REGISTERED PUBLIC HEALTH NURSE 04/10/2024 11:54 PM REGISTERED PUBLIC HEALTH NURSE us Prerak Bhavesh Adam MD LAB BLOOD ORDERABLES F inal Result Performing Organization Address City/[facility]/ZIP Co de Phone Number [facility] [place] [address] * Critical result callback Cardio chemistry (04/10/2024 11:41 PM REGISTERED PUBLIC HEALTH NURSE) Date Notified [id number] Time Notified 108 KERRI SIMPSON Test name Trop I hs KERRI SIMPSON Called/Read Back Olu SIMPSON Credentials MD KERRI SIMPSON Called By SB KERRI SIMPSON Blood 04/10/2024 11:4 1 PM REGISTERED PUBLIC HEALTH NURSE 04/10/2024 11:54 PM REGISTERED PUBLIC HEALTH NURSE Premat Medina MD LAB BLOOD ORDERABLES F inal Result Performing Organization Address [facility] Co de Phone Number [facility] [place] [place] [address] * (ABNORMAL) eGFR (04/10/2024 11:41 PM REGISTERED PUBLIC HEALTH NURSE) eGFR 5(L) >=60 mL/min/1. 73 m2 Comment: [...] Current interpretive data was last reviewed 2020. Blood 04/10/2024 11:4 1 PM REGISTERED PUBLIC HEALTH NURSE 04/10/2024 11:55 PM REGISTERED PUBLIC HEALTH NURSE Sumit Baptiste MD LAB BLOOD ORDERABLES Kenna haider Result [facility] Department [place] [address] * (ABNORMAL) Differential, auto (04/10/2024 11:41 PM REGISTERED PUBLIC HEALTH NURSE) Neutrophil abs 9.3(H) 1.5 - 6.5 K/cumm Imm gran abs 1.1(H) 0.0 - 0.1 K/cumm [facility] Lymphocyte abs 1.6 0.8 - 3.3 K/cumm [facility] Monocyte abs 1.0(H) 0.2 - 0.8 K/cumm [facility] Eosinophil abs 0.1 0.0 - 0.5 K/cumm [facility] Basophil abs 0.1 0.0 - 0.1 K/cumm [facility] Neutrophil pct 71.0 % [facility] Comment: Confirmed by smear review Interpretive Data Percent cell count reference ranges are not reported, since discordance with absolute values may lead to misinterpretation of CBC data. Current Interpretive Data was last revised on 2017. Imm gran pct 8.2 % [facility] Comment: Interpretive Data Percent cell count reference ranges are not reported, since discordance with absolute values may lead to misinterpretation of CBC data. Current Interpretive Data was last revised on 2017. Lymphocyte pct 12.3 % [facility] Comment: Interpretive Data Percent cell count reference ranges are not reported, since discordance with absolute values may lead to misinterpretation of CBC data. Current Interpretive Data was last revised on 2017. Monocyte pct 7.3 % [facility] Comment: Interpretive Data Percent cell count reference ranges are not reported, since discordance with absolute values may lead to misinterpretation of CBC data. Current Interpretive Data was last revised on 2017. Eosinophil pct 0.8 % [facility] Comment: Interpretive Data Percent cell count reference ranges are not reported, since discordance with absolute values may lead to misinterpretation of CBC data. Current Interpretive Data was last revised on 2017. Basophil pct 0.4 % [facility] Comment: Interpretive Data Percent cell count reference ranges are not reported, since discordance with absolute values may lead to misinterpretation of CBC data. Current Interpretive Data was last revised on 2017. Blood 04/10/2024 11:4 1 PM REGISTERED PUBLIC HEALTH NURSE 04/10/2024 11:54 PM REGISTERED PUBLIC HEALTH NURSE Sumit Baptiste MD LAB BLOOD ORDERABLES Kenna haider Result [facility] Department [place] [address] * Respiratory pathogen panel Nasopharyngeal (04/10/2024 11:41 PM REGISTERED PUBLIC HEALTH NURSE) Pathologist [facility] Influenza A RNA Not Detected Not Detected Influenza B RNA Not Detected Not Detected [facility] RSV RNA Not Detected Not Detected [facility] COVID-19 RNA Not Detected Not Detected [facility] Coronavirus 229E RNA Not Detected Not Detected [facility] Coronavirus HKU1 RNA Not Detected Not Detected [facility] Coronavirus NL63 RNA Not Detected Not Detected [facility] Coronavirus OC43 RNA Not Detected Not Detected [facility] Adenovirus DNA Not Detected Not Detected [facility] Metapneumovirus RNA Not Detected Not Detected [facility] Rhinovirus/Enterov irus RNA Not Detected Not Detected [facility] Parainfluenza 1 RNA Not Detected Not Detected [facility] Parainfluenza 2 RNA Not Detected Not Detected [facility] Parainfluenza 3 RNA Not Detected Not Detected [facility] Parainfluenza 4 RNA Not Detected Not Detected [facility] B. pertussis DNA Not Detected Not Detected [facility] B. parapertussis DNA Not Detected Not Detected [facility] C. pneumoniae DNA Not Detected Not Detected [facility] M. pneumoniae DNA Not Detected Not Detected [facility] Nasopharyngeal 04/10/2024 11 :41 PM REGISTERED PUBLIC HEALTH NURSE 04/11/2024 12:16 AM REGISTERED PUBLIC HEALTH NURSE Narrative [facility] - 04/11/2024 1:23 AM REGISTERED PUBLIC HEALTH NURSE Is the Patient experiencing symptoms consistent with COVID?->Unknown Surveillance testing for transplant patient?->No Interpretive Data The [employer] FilmArray Respiratory Panel (RP2.1) assay is a multiplexed real-time PCR based nucleic acid test capable of simultaneous qualitative detection and identification of multiple respiratory viral and bacterial nucleic acids, including SARS Coronavirus 2 (the causative agent of COVID-19). The following bacteria, viruses and virus subtypes can be identified using the FilmArray RP2.1 assay: Bordetella pertussis, Bordetella parapertussis, Chlamydia pneumoniae, Mycoplasma pneumoniae, Adenovirus, SARS Coronavirus 2, seasonal coronaviruses (Coronavirus HKU1, Coronavirus NL63, Coronavirus 229E, and Coronavirus OC43), Influenza A, Influenza A subtype H1, Influenza A subtype H3, Influenza A subtype 2009 H1, Influenza B, Metapneumovirus, Parainfluenza 1, Parainfluenza 2, Parainfluenza 3, Parainfluenza 4, RSV, Rhinovirus/Enterovirus. Due to the genetic similarity between human Rhinovirus and Enterovirus, the FilmArray RP2.1 assay cannot reliably differentiate them. Coronavirus OC43 may cross-react with some isolates of Coronavirus HKU1. A dual positive result may be due to cross-reactivity or may indicate a co- infection. The detection and identification of specific viral and bacterial nucleic acids from individuals exhibiting signs and symptoms of a respiratory infection aids in the diagnosis of respiratory infection if used in conjunction with other clinical and epidemiological information. The results of this test should not be used as the sole basis for diagnosis, treatment, or other management decisions. Negative results in the setting of a respiratory illness may be due to infection with pathogens that are not detected by this test. Positive results do not rule out infection/co-infection with other organisms. The agent(s) detected by the FilmArray RP2.1 may not be the definite cause of disease. Additional testing (lab, imaging, etc.) may be necessary when evaluating a patient with possible respiratory tract infection. The FilmArray RP2.1 assay has FDA clearance for testing of [employer]UCATION [employer]ESSION[employer] swabs. The performance of additional specimen types has been assessed by the performing laboratory. The performance characteristics of this assay have been determined by [facility] Molecular Infectious Disease Laboratory. Current interpretive data was last revised on 21. us Roberto Medina MD LAB MICROBIOLOGY - GEN ERAL ORDERABLES Final Result [facility] Department [place] [address] [place] [address] * (ABNORMAL) CBC with auto differential (04/10/2024 11:41 PM REGISTERED PUBLIC HEALTH NURSE) WBC 13.1(H) 3.8 - 9.9 K/cumm Hgb 9.8(L) 13.0 - 17.5 g/dL [facility] Hct 30.3(L) 38.9 - 50.3 % [facility] Plt 272 150 - 400 K/cumm [facility] MPV 11.5 9.1 - 12.3 fL [facility] RBC 3.21(L) 4.30 - 5.80 M/cumm [facility] MCV 94.4 81.3 - 96.4 fL [facility] MCH 30.5 27.1 - 33.3 pg [facility] MCHC 32.3 32.3 - 35.7 g/dL [facility] RDW CV 15.8(H) 11.1 - 14.9 % [facility] RDW SD 54.0(H) 35.7 - 48.1 fL [facility] NRBC abs 0.00 0.00 - 0.01 K/cumm [facility] Blood 04/10/2024 11:4 1 PM REGISTERED PUBLIC HEALTH NURSE 04/10/2024 11:54 PM REGISTERED PUBLIC HEALTH NURSE us Olu Collins MD LAB BLOOD ORDERABLES Final Re sult [facility] [place] [address] [place] [address] * Blood culture Blood (04/10/2024 11:41 PM REGISTERED PUBLIC HEALTH NURSE) Report Final Report: No growth Blood 04/10/2024 11:4 1 PM REGISTERED PUBLIC HEALTH NURSE 04/11/2024 1:59 AM REGISTERED PUBLIC HEALTH NURSE Narrative [facility] SIMPSON - 04/15/2024 7:01 AM REGISTERED PUBLIC HEALTH NURSE Collection->Peripheral 1. Blood cultures are incubated for 4 days on a continuously monitored blood culture system. The first report of a negative culture is issued within 24 hours of receipt of the specimen in the laboratory. 2. Positive culture results are reported as soon as they are detected. 3. The most important factor for detection of microbes in the setting of bloodstream infection is the volume of blood submitted for culture. Failure to collect an optimal blood volume can result in false negative blood cultures. 4. For pediatric patients, the recommended blood volume to collect follows a weight based strategy. See the electronic test catalog for collection instructions. 5. For positive blood cultures, a rapid molecular test may be performed for organism identification using the [employer] ePlex blood culture identification panel for gram positive (BCID-GP) and gram negative (BCID-GN) organisms. This nucleic acid amplification test detects microbial DNA in positive blood culture broth. This assay has been cleared by the [place] Food and Drug Administration and its performance characteristics have been verified by the [facility] Microbiology Laboratory. For questions about this culture, contact the Microbiology Laboratory at [phone]. Interpretive data was last revised on 23. us Prerak Bhavesh Medina MD LAB MICROBIOLOGY - GEN ERAL ORDERABLES Final Result [facility] Department [place] [address] * Blood culture Blood (04/10/2024 11:41 PM REGISTERED PUBLIC HEALTH NURSE) Report Final Report: No growth Blood 04/10/2024 11:4 1 PM REGISTERED PUBLIC HEALTH NURSE 04/11/2024 1:59 AM REGISTERED PUBLIC HEALTH NURSE Narrative [facility]RI SIMPSON - 04/15/2024 7:01 AM REGISTERED PUBLIC HEALTH NURSE Collection->Peripheral 1. Blood cultures are incubated for 4 days on a continuously monitored blood culture system. The first report of a negative culture is issued within 24 hours of receipt of the specimen in the laboratory. 2. Positive culture results are reported as soon as they are detected. 3. The most important factor for detection of microbes in the setting of bloodstream infection is the volume of blood submitted for culture. Failure to collect an optimal blood volume can result in false negative blood cultures. 4. For pediatric patients, the recommended blood volume to collect follows a weight based strategy. See the electronic test catalog for collection instructions. 5. For positive blood cultures, a rapid molecular test may be performed for organism identification using the [employer] ePlex blood culture identification panel for gram positive (BCID-GP) and gram negative (BCID-GN) organisms. This nucleic acid amplification test detects microbial DNA in positive blood culture broth. This assay has been cleared by the [place] Food and Drug Administration and its performance characteristics have been verified by the [facility] Microbiology Laboratory. For questions about this culture, contact the Microbiology Laboratory at [phone]. Interpretive data was last revised on 23. Roberto Medina MD LAB MICROBIOLOGY - GEN ERAL ORDERABLES Final Result Performing Organization Address [facility] Co de Phone Number [facility] Department [place] [address] * TSH (04/10/2024 11:41 PM REGISTERED PUBLIC HEALTH NURSE) Thyroid Stimulating Hormone 3.20 0.30 - 4.20 mcIUnit/mL Blood 04/10/2024 11:4 1 PM REGISTERED PUBLIC HEALTH NURSE 04/10/2024 11:55 PM REGISTERED PUBLIC HEALTH NURSE Olu Collins MD LAB BLOOD ORDERABLES Final Re sult Performing Organization Address [facility] de Phone Number [facility] Department [place] [address] * Cholesterol, LDL, direct (04/10/2024 11:41 PM REGISTERED PUBLIC HEALTH NURSE) LDL Cholesterol, Direct 41 <=129 mg/dL Comment: Interpretive Data Ages < or [...] Interpretive Data was last revised on 2017. Blood 04/10/2024 11:4 1 PM REGISTERED PUBLIC HEALTH NURSE 04/10/2024 11:55 PM REGISTERED PUBLIC HEALTH NURSE Narrative [facility] - 04/11/2024 6:09 PM REGISTERED PUBLIC HEALTH NURSE Cholesterol, LDL, direct reflexed based on Elevated Triglyceride (>400) Nicole Boo MD LAB BLOOD ORDERABLES Final Result Performing Organization Address City/[facility]/ZIP Co de Phone Number [facility] [place] [address] * (ABNORMAL) Hemoglobin A1c (04/10/2024 11:41 PM REGISTERED PUBLIC HEALTH NURSE) [facility] Hgb A1C 7.0(H) 4.0 - 5.6 % Estimated Average Glucose 154 mg/dL [facility] Comment: The ADA recommends reporting an estimated Average Glucose (eAG) with all Hemoglobin A1c results using the equation derived from a study of 507 normal and diabetic adults. Minority populations were underrepresented and children were not included. (Diabetes Care 2020; 43(S1): S66-S76). The eAG is not equivalent to a fasting glucose. Blood 04/10/2024 11:4 1 PM REGISTERED PUBLIC HEALTH NURSE 04/10/2024 11:57 PM REGISTERED PUBLIC HEALTH NURSE us Saul Engle MD LAB BLOOD ORDERABLES Final Resul t [facility] [place] [address] * (ABNORMAL) Lipid panel (04/10/2024 11:41 PM REGISTERED PUBLIC HEALTH NURSE) [facility] Cholesterol 145 30 - 199 mg/dL Comment: Interpretive Data [...] Data was last revised on 2017. Triglycerides 453(H) <=149 mg/dL [facility] Comment: Interpretive Data Ages < or [...] Data was last revised on 2017. HDL 22(L) >=40 mg/dL [facility] Comment: Interpretive Data Ages < or [...] 2017. LDL, calculated See Comment <=129 [facility] Comment: Unable to calculate LDL due to elevated triglyceride. Interpretive Data Ages < or = 19 years Acceptable: <110 mg/dL Borderline high: 110-129 mg/dL High: >or= 130 mg/dL Ages > or = 20 years Optimal: <100 mg/dL Near optimal: 100-129 mg/dL Borderline high: 130-159 mg/dL High: >160 mg/dL Calculated using the Moy LDL-C estimating equation. This equation was implemented on 2023. Prior to this date LDL-C was estimated using the Friedewald equation. Literature References: 1. Expert Panel on Integrated Guidelines for Cardiovascular Health and Risk Reduction in Children and Adolescents. Pediatrics 2011;128:S213 2. NCEP Expert Panel. Circulation 2004;110:227 3. Chinmay Lew et al. LYDIA Cardiol. 2019June 17;5(5):540-548. doi: 10.1001/jamacardio.2020.0013 Current Interpretive Data was last revised on 2023. Non-HDL Cholesterol 123 mg/dL [facility] Comment: Interpretive Data Ages < [...] was last revised on 2017. Chol/HDL ratio 7 [facility] Blood 04/10/2024 11:4 1 PM REGISTERED PUBLIC HEALTH NURSE 04/10/2024 11:55 PM REGISTERED PUBLIC HEALTH NURSE Nicole Boo MD LAB BLOOD ORDERABLES Final Result [facility] Department [place] [address] * (ABNORMAL) Comprehensive metabolic panel (04/10/2024 11:41 PM REGISTERED PUBLIC HEALTH NURSE) Sodium 141 135 - 145 mmol/L Potassium, pl 3.4 3.3 - 4.9 mmol/L [facility] Chloride 98 97 - 110 mmol/L [facility] CO2 27 22 - 32 mmol/L [facility] Anion gap 16(H) 2 - 15 mmol/L [facility] BUN 45(H) 6 - 25 mg/dL [facility] Creatinine 10.90(H) 0.80 - 1.30 mg/dL [facility] Glucose 240(H) 70 - 199 mg/dL [facility] Comment: Interpretive Data Fasting glucose >/= 126 mg/dl is diagnostic for diabetes. Fasting is defined as no caloric intake for at least 8 hours. Fasting glucose between 100 mg/dl to 125 mg/dl is diagnostic of prediabetes. In a patient with classic symptoms of hyperglycemia or hyperglycemic crisis, a random glucose >/= 200 mg/dl is diagnostic for diabetes. In the absence of unequivocal hyperglycemia, results should be confirmed by repeat testing. The classification and Diagnosis of Diabetes Diabetes Care 2021; 46: S19-S40. Current interpretive data was last revised 2022. Calcium 9.2 8.5 - 10.3 mg/dL [facility] Bilirubin, total 0.2 0.1 - 1.2 mg/dL [facility] Protein, pl 6.5 6.5 - 8.5 g/dL [facility] Albumin 3.1(L) 3.5 - 5.0 g/dL [facility] Alk phos 64 40 - 130 Units/L [facility] ALT 26 7 - 55 Units/L [facility] AST 30 10 - 50 Units/L [facility] Blood 04/10/2024 11:4 1 PM REGISTERED PUBLIC HEALTH NURSE 04/10/2024 11:55 PM REGISTERED PUBLIC HEALTH NURSE Olu Collins MD LAB BLOOD ORDERABLES Final Re sult [facility] Department [place] [address] * (ABNORMAL) ECG 12-LEAD (04/10/2024 11:15 PM REGISTERED PUBLIC HEALTH NURSE) Narrative [facility] - 04/10/2024 11:15 PM REGISTERED PUBLIC HEALTH NURSE Mario Alberto Cornelius MD 04/10/2024 11:17 PM ECG 12 lead Date/Time: 04/10/2024 11:15 PM Performed by: Mario Alberto Cornelius MD Authorized by: Sumit Baptiste MD Rate: ECG rate: 68 ECG rate assessment: normal Rhythm: Rhythm: sinus rhythm Ectopy: Ectopy: none QRS: QRS axis: Left QRS intervals: Normal Conduction: Conduction: abnormal Abnormal conduction: incomplete RBBB and LAFB ST segments: ST segments: Normal T waves: T waves: flattening and inverted Flattening: AVL Inverted: III Q waves: Q waves: V2 Other findings: Other findings: prolonged qTc interval Previous ECG: Previous ECG: Compared to current Date of previous EC04/01/2023 Comparison ECG info: QTc 531 now, was 492 prior Similarity: Changes noted Interpretation: Interpretation: abnormal Recommended Follow-up: Recommended follow up: further workup in the ED Procedure Note Mario Alberto Cornelius MD - 04/10/2024 11:15 PM CST Procedure ECG 12 lead Date/Time: 04/10/2024 11:15 PM Performed by: Mario Alberto Cornelius MD Authorized by: Sumit Baptiste MD Rate: ECG rate: 68 ECG rate assessment: normal Rhythm: Rhythm: sinus rhythm Ectopy: Ectopy: none QRS: QRS axis: Left QRS intervals: Normal Conduction: Conduction: abnormal Abnormal conduction: incomplete RBBB and LAFB ST segments: ST segments: Normal T waves: T waves: flattening and inverted Flattening: AVL Inverted: III Q waves: Q waves: V2 Other findings: Other findings: prolonged qTc interval Previous ECG: Previous ECG: Compared to current Date of previous EC04/01/2023 Comparison ECG info: QTc 531 now, was 492 prior Similarity: Changes noted Interpretation: Interpretation: abnormal Recommended Follow-up: Recommended follow up: further workup in the ED Mario Alberto Cornelius MD 04/10/24 [id number] us Olu Collins MD ECG ORDERABLES Final Result [facility] * OCT, Retina - OU - Both Eyes (03/09/2024 2:00 PM REGISTERED PUBLIC HEALTH NURSE) Central Macular Thickness OS 227 micrometers CONTINUUM Central Macular Thickness OD 479 micrometers CONTINUUM Anatomical Region Laterality Modality Head Optical Coherenc e Tomography Narrative 03/16/2024 12:53 PM REGISTERED PUBLIC HEALTH NURSE Right Eye Quality was good. Scan locations included subfoveal. Progression has improved. Macular thickness was 479 micrometers. Left Eye Quality was good. Scan locations included subfoveal. Progression has been stable. Macular thickness was 227 micrometers. Notes OD - ERM, CME continues to improve OS - flat Sera Villanueva MD OPHTH TOMOGRAPHY Fi nal Result from Last 3 Months Insurance [facility] MEDICARE [facility] MEDICARE [employer] MEDICARE Advance Directives For more information, please contact: [phone] * Full Code (Latest Code Status on File) Date Activated Date Inactivated Comments 04/11/2024 7:58 AM 04/13/2024 6:32 PM * Full Code Date Activated Date Inactivated Comments 03/24/2023 10:36 PM 03/29/2023 7:21 PM * Full Code Date Activated Date Inactivated Comments 12/20/2022 7:34 PM 12/22/2022 5:30 PM * Full Code Date Activated Date Inactivated Comments 11/30/2022 1:45 PM 12/03/2022 6:50 PM * Full Code Date Activated Date Inactivated Comments 06/08/2021 3:52 PM 06/08/2021 9:56 PM Care Teams Porter Baggage Relationship Specialty Start Date End Date Jeff Strickland MD [address] [facility] [address] [place] [address] PCP - General Family Medicine 04/02/18 Chan Nicholas MD [address] [place] [address] Consulting Physician Gastroenterology 11/24/18 Alan Mccall MD [address] [place] [address] Referring Physician Nephrology 11/24/18 Pepito Haro MD PhD [address] [place] [address] Consulting Physician Neurosurgery 12/03/22 Solange Guido MD [address] [facility] [address] [place] [address] Referring Physician Cardiovascular Disease 07/23/23
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
--- OUTSIDE RECORDS SUMMARY | 2024-05-07 11:02 | XMS_ITS ---
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 Name Role Phone Jeff Strickland MD Primary Care Provider Chan Nicholas MD Unavailable [phone] Alan Mccall MD Unavailable [phone] Pepito Haro MD PhD Unavailable Solange Guido [...] GLUCOSE DEVICE Routine 04/13/2024 1 1:30 AM MANAGER LINE POCT GLUCOSE DEVICE Routine 04/13/2024 8 :00 AM MANAGER LINE EGFR Routine 04/13/2024 5:06 AM MANAGER LINE CBC WITHOUT DIFFERENTIAL Routine 04/13/2024 5:06 AM MANAGER LINE COMPREHENSIVE METABOLIC PANEL Routine 04/13/2024 5:06 AM MANAGER LINE POCT GLUCOSE DEVICE Routine 04/13/2024 1 :57 AM MANAGER LINE POCT GLUCOSE DEVICE Routine 04/12/2024 8 :29 PM MANAGER LINE POCT GLUCOSE DEVICE Routine 04/12/2024 5 :29 PM MANAGER LINE POCT GLUCOSE DEVICE Routine 04/12/2024 1 1:32 AM MANAGER LINE POCT GLUCOSE DEVICE Routine 04/12/2024 7 :54 AM MANAGER LINE EGFR Routine 04/12/2024 6:00 AM MANAGER LINE CBC WITHOUT DIFFERENTIAL Routine 04/12/2024 6:00 AM MANAGER LINE COMPREHENSIVE METABOLIC PANEL Routine 04/12/2024 6:00 AM MANAGER LINE POCT GLUCOSE DEVICE Routine 04/12/2024 4 :35 AM MANAGER LINE POCT GLUCOSE DEVICE Routine 04/12/2024 1 2:34 AM MANAGER LINE POCT GLUCOSE DEVICE Routine 04/11/2024 9 :13 PM MANAGER LINE POCT GLUCOSE DEVICE Routine 04/11/2024 6 :04 PM MANAGER LINE POCT GLUCOSE DEVICE Routine 04/11/2024 2 :25 PM MANAGER LINE POCT GLUCOSE DEVICE Routine 04/11/2024 1 2:10 PM MANAGER LINE INFECTION PREVENTION VRE CULTURE Routine 04/11/2024 8:41 AM MANAGER LINE H. PYLORI ANTIGEN, STOOL Routine 04/11/2024 8:41 AM MANAGER LINE C. DIFFICILE TESTING Routine 04/11/2024 8:41 AM MANAGER LINE STOOL CULTURE Routine 04/11/2024 8:41 AM MANAGER LINE POCT GLUCOSE DEVICE Routine 04/11/2024 8 :30 AM MANAGER LINE TROPONIN I HIGH-SENSITIVITY 6-HOUR Timed 04/11/2024 4:47 AM MANAGER LINE CELL DIFFERENTIAL, BODY FLUID Routine 04/11/2024 3:51 AM MANAGER LINE CELL COUNT W/REFLEX DIFFERENTIAL, BODY FLUID Routine 04/11/2024 3:51 AM MANAGER LINE AEROBIC AND ANAEROBIC CULTURE AND GRAM STAIN Routine 04/11/2024 3:51 AM MANAGER LINE POCT GLUCOSE DEVICE Routine 04/11/2024 3 :43 AM MANAGER LINE SEPSIS LACTATE WITH REFLEX Timed 04/11/2024 3:41 AM MANAGER LINE TROPONIN I HIGH-SENSITIVITY 4-HOUR Timed 04/11/2024 3:[address] ABDOMEN PELVIS W CONTRAST ED 04/11/2024 2:21 AM MANAGER LINE ECG 12-LEAD Routine 04/11/2024 1:52 AM MANAGER LINE TROPONIN I HIGH-SENSITIVITY 2-HOUR Timed 04/11/2024 1:48 AM MANAGER LINE [facility] I[facility]/INJURED PATIENT INIT 30-74 MIN Routine 04/11/2024 1:29 AM MANAGER LINE XR CHEST 1 VIEW ED 04/11/2024 1:01 AM MANAGER LINE SEPSIS LACTATE WITH REFLEX STAT 04/11/2024 12:17 AM MANAGER LINE HEMOGLOBIN A1C STAT 04/10/2024 11:41 PM MANAGER LINE CHOLESTEROL, LDL, DIRECT STAT 04/10/2024 11:41 PM MANAGER LINE LIPID PANEL STAT 04/10/2024 11:41 PM MANAGER LINE CRITICAL RESULT CALLBACK CARDIO CHEM STAT 04/10/2024 11:41 PM MANAGER LINE EGFR STAT 04/10/2024 11:41 PM MANAGER LINE TSH STAT 04/10/2024 11:41 PM MANAGER LINE DIFFERENTIAL AUTO STAT 04/10/2024 11: 41 PM MANAGER LINE TROPONIN I HIGH-SENSITIVITY SERIES (BASELINE, 2HR, 4HR, 6HR) STAT 04/10/2024 11:41 PM MANAGER LINE COMPREHENSIVE METABOLIC PANEL STAT 04/10/2024 11:41 PM MANAGER LINE CBC WITH AUTO DIFFERENTIAL STAT 04/10/2024 11:41 PM MANAGER LINE RESPIRATORY PATHOGEN PANEL STAT 04/10/2024 11:41 PM MANAGER LINE BLOOD CULTURE STAT 04/10/2024 11:41 PM MANAGER LINE BLOOD CULTURE Routine 04/10/2024 11:41 PM MANAGER LINE ECG 12-LEAD STAT 04/10/2024 11:15 PM MANAGER LINE OCT, RETINA - OU - BOTH EYES Routine 03/09/2024 2:00 PM MANAGER LINE Cystoid macular edema of both eyes from Last 3 Months Allergies No known active allergies Medications carvedilol (COREG) 25 mg tablet Take 1 tablet (25 mg total) by mouth 2 (two) times a day Active levothyroxine (SYNTHROID, LEVOTHROID) 112 mcg tablet Take 1 tablet (112 mcg total) by mouth every morning Active cholecalciferol, vitamin D3, (VITAMIN D3 ORAL) Take 5,000 Units by mouth daily Active atorvastatin (LIPITOR) 80 mg tablet Take 1 tablet (80 mg total) by mouth nightly Active aspirin 81 mg enteric coated tablet Take 1 tablet (81 mg total) by mouth daily with dinner 30 tablet Active Additional Information Patient taking differently:81 mg oralDaily, Reported on 04/11/2024 azelastine (ASTELIN) 137 mcg (0.1 %) nasal spray Administer 1 spray into each nostril 2 (two) times a day Use in each nostril as directed 30 mL 6 Active Additional Information Patient not taking.Reported on [...] 300 + = 14 units Active FA-vit Jpzpe-N-vszn-vitam in D3 (Dialyvite 800-Ultra D) 0.8-2,000 mg-unit [...] mouth 2 (two) times a day Active lisinopriL (PRINIVIL,ZESTRIL) 20 mg tablet Take 1 tablet (20 mg total) by mouth daily Active furosemide (LASIX) 80 mg tablet Take [...] 3 (three) times a day with meals 2024 Discontinued vit C,E-Dn-kkwpa-lutei n-zeaxan 250-90-40-1 mg capsule Take 1 capsule by mouth 2 (two) times a day 2024 Discontinued LORazepam (ATIVAN) 0.5 mg tablet Take 1 tablet (0.5 mg total) by mouth 2 (two) times a day as needed for anxiety 2024 Discontinued(T herapy completed) traZODone (DESYREL) 50 mg tablet Take 1 tablet (50 mg total) by mouth nightly as needed for sleep 5 Discontinued tamsulosin (FLOMAX) 0.4 mg extended release [...] 2024 Subconjunctival hemorrhage of right eye 10/01/19 Assessment [...] warrant further PDT. - Patient returned to [facility] for ongoing care and follow up Assessment & Plan (03/09/2024 6:25 PM MANAGER LINE): Vision OD trends mild improvement, though still [...] We discussed that genetic results would not ion exchange operator. Given we have exhausted available [...] 03/26/2021 Assessment & Plan (03/26/2021 1:17 PM MANAGER LINE): Enlarged mild sella turcica on a routine [...] units Assessment & Plan (03/26/2021 1:17 PM MANAGER LINE): Chronic, uncontrolled, improving A1c today 7.7 % [...] WNL Assessment & Plan (03/26/2021 1:16 PM MANAGER LINE): Pt currently on Levothyroxine 112 mcg oral [...] 11/18/2018 Assessment & Plan (01/21/2019 2:02 PM MANAGER LINE): Symptomatic. Will request for esophageal manometry. Continue [...] well Assessment & Plan (03/26/2021 1:16 PM MANAGER LINE): On statin therapy Tolerating well Last lipid [...] nephrectomy. 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 [id number] Immunizations Immunization Administration Dates Next Due Hep [...] = 0.6 oz pur e alcohol) rarely [employer] Utilities Answer Date Recorded In the past 12 months has [employer], gas, oil, or water [employer] threatened to shut off services in your [...] often do you attend chur ch or spiritism services? Never 03/25/2023 Do you belong to any clubs o r organizations such as adventism groups, unions, fraternal or athletic groups, or [...] place to sleep or slept in a group home (including now)? 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 Sex Male 2:23 AM MANAGER LINE Gender Identity Not on file Sexual Orientation Not on file Occupation Industry Job Start Date Job End Date Retired Not on file Not on file Not on file Last Filed Vital Signs Vital Sign Reading Time Taken Comments Blood Pressure 154/73 04/13/2024 11:52 AM MANAGER LINE Pulse 67 04/13/2024 8:33 AM MANAGER LINE Temperature 36.7 C (98.1 F) 04/13/2024 8:33 AM MANAGER LINE Respiratory Rate 16 04/13/2024 8:33 AM MANAGER LINE Oxygen Saturation 98% 04/13/2024 8:33 AM MANAGER LINE Inhaled Oxygen Concentration - - Weight 110.6 kg (243 lb 13.3 oz) 04/12/2024 8:00 PM MANAGER LINE Height 172.7 cm (5' 8 ) 04/11/2024 3:40 PM MANAGER LINE Body Mass Index 37.07 04/11/2024 3:40 PM MANAGER LINE Results * POCT glucose (04/13/2024 11:30 AM MANAGER LINE) [facility] Signature Glucose, POC 143 70 - 199 mg/dL Blood 04/13/2024 11:3 0 AM MANAGER LINE 04/13/2024 11:30 AM MANAGER LINE us Nicole Boo MD LAB POCT ORDERABLES - DEVIC E Final Result [facility] [place] [address] * POCT glucose (04/13/2024 8:00 AM MANAGER LINE) Glucose, POC 117 70 - 199 mg/dL Blood 04/13/2024 8:00 AM MANAGER LINE 04/13/2024 8:00 AM MANAGER LINE Nicole Boo MD LAB POCT ORDERABLES - DEVIC E Final Result Performing Organization Address City/[facility] Co de Phone Number [facility] [place] [address] * (ABNORMAL) eGFR (04/13/2024 5:06 AM MANAGER LINE) Pathologist [facility] eGFR 5(L) >=60 mL/min/1. 73 m2 [...] last reviewed 2020. Blood 04/13/2024 5:06 AM MANAGER LINE 04/13/2024 5:31 AM MANAGER LINE us Saul Engle MD LAB BLOOD ORDERABLES Final Resul t Performing Organization Address City/[facility]/ZIP Co de Phone Number [facility] [place] [address] * (ABNORMAL) CBC without differential (04/13/2024 5:06 AM MANAGER LINE) [facility] WBC 8.7 3.8 - 9.9 K/cumm Hgb 8.4(L) 13.0 - 17.5 g/dL [facility] Hct 25.4(L) 38.9 - 50.3 % [facility] Plt 214 150 - 400 K/cumm [facility] MPV 11.0 9.1 - 12.3 fL [facility] RBC 2.71(L) 4.30 - 5.80 M/cumm [facility] MCV 93.7 81.3 - 96.4 fL [facility] MCH 31.0 27.1 - 33.3 pg [facility] MCHC 33.1 32.3 - 35.7 g/dL [facility] RDW CV 15.9(H) 11.1 - 14.9 % [facility] RDW SD 52.7(H) 35.7 - 48.1 fL [facility] NRBC abs 0.02(H) 0.00 - 0.01 K/cumm [facility] Blood 04/13/2024 5:06 AM MANAGER LINE 04/13/2024 5:31 AM MANAGER LINE us Saul Engle MD LAB BLOOD ORDERABLES Final Resul t [facility] Department [place] [address] * (ABNORMAL) Comprehensive metabolic panel (04/13/2024 5:06 AM MANAGER LINE) [facility] Sodium 134(L) 135 - 145 mmol/L Potassium, pl 3.5 3.3 - 4.9 mmol/L [facility] Chloride 95(L) 97 - 110 mmol/L [facility] CO2 25 22 - 32 mmol/L [facility] Anion gap 14 2 - 15 mmol/L [facility] BUN 43(H) 6 - 25 mg/dL [facility] Creatinine 10.98(H) 0.80 - 1.30 mg/dL [facility] Glucose 125 70 - 199 mg/dL [facility] Comment: Interpretive Data Fasting glucose [...] Calcium 8.2(L) 8.5 - 10.3 mg/dL [facility] Bilirubin, total 0.2 0.1 - 1.2 mg/dL [facility] Protein, pl 5.8(L) 6.5 - 8.5 g/dL [facility] Albumin 2.9(L) 3.5 - 5.0 g/dL [facility] Alk phos 41 40 - 130 Units/L [facility] ALT 18 7 - 55 Units/L [facility] AST 23 10 - 50 Units/L [facility] Blood 04/13/2024 5:06 AM MANAGER LINE 04/13/2024 5:31 AM MANAGER LINE Saul Engle MD LAB BLOOD ORDERABLES Final Resul t Performing Organization Address City/[facility]/ZIP Co de Phone Number [facility] Department [place] [address] * POCT glucose (04/13/2024 1:57 AM MANAGER LINE) [facility] Signature Glucose, POC 151 70 - 199 mg/dL Blood 04/13/2024 1:57 AM MANAGER LINE 04/13/2024 1:57 AM MANAGER LINE Nicole Boo MD LAB POCT ORDERABLES - DEVIC E Final Result Performing Organization Address [facility] Co de Phone Number [facility] Department [place] [address] * (ABNORMAL) POCT glucose (04/12/2024 8:29 PM MANAGER LINE) Glucose, POC 215(H) 70 - 199 mg/dL Blood 04/12/2024 8:29 PM MANAGER LINE 04/12/2024 8:29 PM MANAGER LINE Nicole Boo MD LAB POCT ORDERABLES - DEVIC E Final Result Performing Organization Address [facility] Co de Phone Number [facility] [place] [address] * (ABNORMAL) POCT glucose (04/12/2024 5:29 PM MANAGER LINE) Glucose, POC 254(H) 70 - 199 mg/dL Blood 04/12/2024 5:29 PM MANAGER LINE 04/12/2024 5:29 PM MANAGER LINE Nicole Boo MD LAB POCT ORDERABLES - DEVIC E Final Result Performing Organization Address [facility] Co de Phone Number [facility] [place] [address] * POCT glucose (04/12/2024 11:32 AM MANAGER LINE) Glucose, POC 194 70 - 199 mg/dL Blood 04/12/2024 11:3 2 AM MANAGER LINE 04/12/2024 11:32 AM MANAGER LINE Nicole Boo MD LAB POCT ORDERABLES - DEVIC E Final Result Performing Organization Address [facility] Co de Phone Number [facility] [place] [address] * POCT glucose (04/12/2024 7:54 AM MANAGER LINE) Glucose, POC 166 70 - 199 mg/dL Blood 04/12/2024 7:54 AM MANAGER LINE 04/12/2024 7:54 AM MANAGER LINE Saul Engle MD LAB POCT ORDERABLES - DEVICE Fin al Result Performing Organization Address [facility] de Phone Number [facility] [place] [address] * (ABNORMAL) eGFR (04/12/2024 6:00 AM MANAGER LINE) eGFR 4(L) >=60 mL/min/1. 73 m2 Comment: [...] last reviewed 2020. Blood 04/12/2024 6:00 AM MANAGER LINE 04/12/2024 6:18 AM MANAGER LINE Saul Engle MD LAB BLOOD ORDERABLES Final Resul t Performing Organization Address [facility] Co de Phone Number [facility] Department [place] [address] * (ABNORMAL) CBC without differential (04/12/2024 6:00 AM MANAGER LINE) Pathologist [facility] WBC 9.3 3.8 - 9.9 K/cumm Hgb 8.5(L) 13.0 - 17.5 g/dL [facility] Hct 25.6(L) 38.9 - 50.3 % [facility] Plt 225 150 - 400 K/cumm [facility] MPV 11.1 9.1 - 12.3 fL [facility] RBC 2.74(L) 4.30 - 5.80 M/cumm [facility] MCV 93.4 81.3 - 96.4 fL [facility] MCH 31.0 27.1 - 33.3 pg [facility] MCHC 33.2 32.3 - 35.7 g/dL [facility] RDW CV 15.7(H) 11.1 - 14.9 % [facility] RDW SD 52.7(H) 35.7 - 48.1 fL [facility] NRBC abs 0.02(H) 0.00 - 0.01 K/cumm [facility] Blood 04/12/2024 6:00 AM MANAGER LINE 04/12/2024 6:18 AM MANAGER LINE Saul Engle MD LAB BLOOD ORDERABLES Final Resul t [facility] Department [place] [address] * (ABNORMAL) Comprehensive metabolic panel (04/12/2024 6:00 AM MANAGER LINE) Sodium 140 135 - 145 mmol/L Potassium, pl 3.5 3.3 - 4.9 mmol/L [facility] Chloride 98 97 - 110 mmol/L [facility] CO2 27 22 - 32 mmol/L [facility] Anion gap 15 2 - 15 mmol/L [facility] BUN 49(H) 6 - 25 mg/dL [facility] Creatinine 11.24(H) 0.80 - 1.30 mg/dL [facility] Glucose 153 70 - 199 mg/dL [facility] Comment: Interpretive Data Fasting glucose [...] 2022. Calcium 8.4(L) 8.5 - 10.3 mg/dL [facility] Bilirubin, total 0.2 0.1 - 1.2 mg/dL [facility] Protein, pl 5.5(L) 6.5 - 8.5 g/dL [facility] Albumin 3.0(L) 3.5 - 5.0 g/dL [facility] Alk phos 41 40 - 130 Units/L [facility] ALT 23 7 - 55 Units/L [facility] AST 30 10 - 50 Units/L [facility] Blood 04/12/2024 6:00 AM MANAGER LINE 04/12/2024 6:18 AM MANAGER LINE Saul Engle MD LAB BLOOD ORDERABLES Final Resul t Performing Organization Address City/[facility]/ZIP Co de Phone Number [facility] Department [place] [address] * POCT glucose (04/12/2024 4:35 AM MANAGER LINE) Glucose, POC 169 70 - 199 mg/dL Blood 04/12/2024 4:35 AM MANAGER LINE 04/12/2024 4:35 AM MANAGER LINE Saul Engle MD LAB POCT ORDERABLES - DEVICE Fin al Result Performing Organization Address [facility]/ZIP Co de Phone Number [facility] Department [place] [address] * POCT glucose (04/12/2024 12:34 AM MANAGER LINE) Glucose, POC 184 70 - 199 mg/dL Blood 04/12/2024 12:3 4 AM MANAGER LINE 04/12/2024 12:34 AM MANAGER LINE Saul Engle MD LAB POCT ORDERABLES - DEVICE Fin al Result Performing Organization Address [facility] Co de Phone Number [facility] [place] [address] * POCT glucose (04/11/2024 9:13 PM MANAGER LINE) Glucose, POC 169 70 - 199 mg/dL Blood 04/11/2024 9:13 PM MANAGER LINE 04/11/2024 9:13 PM MANAGER LINE Saul Engle MD LAB POCT ORDERABLES - DEVICE Fin al Result Performing Organization Address [facility] de Phone Number [facility] [place] [address] * POCT glucose (04/11/2024 6:04 PM MANAGER LINE) Glucose, POC 161 70 - 199 mg/dL Blood 04/11/2024 6:04 PM MANAGER LINE 04/11/2024 6:04 PM MANAGER LINE Saul Engle MD LAB POCT ORDERABLES - DEVICE Fin al Result Performing Organization Address [facility] de Phone Number [facility] Department [place] [address] * (ABNORMAL) POCT glucose (04/11/2024 2:25 PM MANAGER LINE) Glucose, POC 201(H) 70 - 199 mg/dL Comment:Glu2: RN/ Notified Glucose comment 1 Glu2: RN/MD Notified [facility] Blood 04/11/2024 2:25 PM MANAGER LINE 04/11/2024 2:25 PM MANAGER LINE Nicole Boo MD LAB POCT ORDERABLES - DEVIC E Final Result Performing Organization Address [facility] Co de Phone Number [facility] [place] [address] * POCT glucose (04/11/2024 12:10 PM MANAGER LINE) Pathologist [facility] Glucose, POC 193 70 - 199 mg/dL Blood 04/11/2024 12:1 0 PM MANAGER LINE 04/11/2024 12:10 PM MANAGER LINE Nicole Boo MD LAB POCT ORDERABLES - DEVIC E Final Result Performing Organization Address City/[facility]/[place] [address] * C. difficile testing Stool (04/11/2024 8:41 AM MANAGER LINE) [facility] Result Negative Negative Toxin Result Negative Negative [facility] C. diff result Negative, free toxin Negative, free toxin [facility] C. diff interp Negative for toxigenic Clostridioides (Clostridium) difficile. Analysis was performed using a glutamate dehydrogenase antigen detection assay combined with a C. difficile toxin detection assay. [facility] Stool 04/11/2024 8:41 AM MANAGER LINE 04/11/2024 11:19 AM MANAGER LINE Nicole Boo MD LAB MICROBIOLOGY - GENERAL ORDERABLES Final Result Performing Organization Address City/[facility] Co de Phone Number [facility] [place] [address] * H. pylori antigen, stool Stool (04/11/2024 8:41 AM MANAGER LINE) [facility] H. pylori Ag, stool Negative Negative Comment: Interpretative Data Testing performed at the [facility] using the Curian HpSA lateral flow immunoassay that detects Helicobacter [...] revised February 2020. Stool 04/11/2024 8:41 AM MANAGER LINE 04/11/2024 11:20 AM MANAGER LINE Nicole Boo MD LAB MICROBIOLOGY - GENERAL ORDERABLES Final Result Performing Organization Address [facility] [place] [place] [address] * Infection Prevention VRE Culture Stool (04/11/2024 8:41 AM MANAGER LINE) Report Final Report: Negative Stool 04/11/2024 8:41 AM MANAGER LINE 04/11/2024 1:46 PM MANAGER LINE Narrative [facility] - 04/13/2024 2:39 PM MANAGER LINE Surveillance culture for Infection Prevention purposes only; results indicate colonization, not infection requiring treatment. Testing performed by [facility] ([phone]). Nicole Boo MD LAB MICROBIOLOGY - GENERAL ORDERABLES Final Result Performing Organization Address [facility] de Phone Number [facility] [place] [address] * Stool culture Stool Rectum (04/11/2024 8:41 AM MANAGER LINE) Direct Specimen Exam Shiga Toxin Testing: Antigen detection assay for Shiga-toxin NEGATIVE for Shiga Toxin 1 and Shiga Toxin 2. Report Final Report: No growth of enteric bacterial pathogens [facility] Stool (Rectum) 04/11/2024 8: 41 AM MANAGER LINE 04/11/2024 11:21 AM MANAGER LINE Narrative [facility] - 04/15/2024 10:42 AM MANAGER LINE Testing performed by [facility] ([phone]). Routine stool cultures include procedures to detect Salmonella, Shigella, Edwardsiella, Aeromonas, Pleisiomonas, Campylobacter, Yersinia, E. coli O157, and Shiga-like toxins. Vibrio is cultured only upon special request. If Vibrio is suspected, please call the laboratory at [phone]. Interpretive data was last updated June 24, 2016. Nicloe Boo MD LAB MICROBIOLOGY - GENERAL ORDERABLES Final Result Performing Organization Address [facility] Co de Phone Number [facility] Department [place] [address] * POCT glucose (04/11/2024 8:30 AM MANAGER LINE) Glucose, POC 150 70 - 199 mg/dL Blood 04/11/2024 8:30 AM MANAGER LINE 04/11/2024 8:30 AM MANAGER LINE Result [facility] Nicole Boo MD LAB POCT ORDERABLES - DEVIC E Final Result Performing Organization Address [facility] de Phone Number [facility] [place] [address] * (ABNORMAL) Troponin I high-sensitivity 6-hour (04/11/2024 4:47 AM MANAGER LINE) Pathologist [facility] Trop I hs 193(H) <=35 ng/L Comment: Interpretive Data For further [facility] resources including the diagnostic algorithm and an aid in interpretation, copy and paste this link: [email or web address] Current Interpretive Data last revised 2019. Trop I hs pct delta -13 % [facility] Trop I hs interp Equivocal [facility] Blood 04/11/2024 4:47 AM MANAGER LINE 04/11/2024 5:05 AM MANAGER LINE Result [facility] Roberto Medina MD LAB BLOOD ORDERABLES F inal Result Performing Organization Address [facility] Co de Phone Number [facility] [place] [address] * Cell Differential, Body Fluid (04/11/2024 3:51 AM MANAGER LINE) Total cells diffed 100 cells Comment: Interpretive [...] % [facility] Fluid 04/11/2024 3:51 AM MANAGER LINE 04/11/2024 5:30 AM MANAGER LINE Saul Engle MD LAB BODY FLUIDS AND STOOLS ORDER MICHELLE Final Result Performing Organization Address [facility] de Phone Number [facility] [place] [address] * Cell count w/rflx diff, body fluid (04/11/2024 3:51 AM MANAGER LINE) Specimen type, fld Dialysate Color, fld Straw [facility] Clarity, fld Clear Clear [facility] Nucleated cells, fld 21 /cumm [facility] Comment: Interpretive Data Unless otherwise specified, the reference range and other method performance specifications have not been established for CSF/Body Fluid tests. The test results should be integrated into the clinical context for interpretation. Current interpretive data was last revised on 2018. RBC, fld 0 /cumm [facility] [facility] Fluid 04/11/2024 3:51 AM MANAGER LINE 04/11/2024 5:30 AM MANAGER LINE Saul Engle MD LAB BODY FLUIDS AND STOOLS ORDER MICHELLE Final Result Performing Organization Address [facility] Co de Phone Number [facility] [place] [address] * Aerobic and anaerobic culture and gram stain Peritoneal dialysis fluid Peritoneum (04/11/2024 3:51 AM MANAGER LINE) Direct Specimen Exam Stain: Cytospin Gram stain shows: Rare polymorphonuclear leukocytes seen. Other cellular material present. No organisms seen. Report Final Report: No growth [facility] Peritoneal dialysis fluid (Peritoneum) 04/11/2024 3:51 AM MANAGER LINE 04/11/2024 6:13 AM MANAGER LINE Narrative [facility] - 04/17/2024 12:22 PM MANAGER LINE Fluid specimen received. Testing performed by [facility] ([phone]) Specimens submitted from normally sterile body sites [...] City/[facility]/ZIP Co de Phone Number [facility] [place] [address] * (ABNORMAL) POCT glucose (04/11/2024 3:43 AM MANAGER LINE) Pathologist [facility] Glucose, POC 223(H) 70 - 199 mg/dL Blood 04/11/2024 3:43 AM MANAGER LINE 04/11/2024 3:43 AM MANAGER LINE Saul Engle MD LAB POCT ORDERABLES - DEVICE Fin al Result Performing Organization Address City/[facility]/ZIP Co de Phone Number [facility] [place] [address] * (ABNORMAL) Troponin I high-sensitivity 4-hour (04/11/2024 3:41 AM MANAGER LINE) Pathologist [facility] Trop I hs 192(H) <=35 ng/L Comment: Interpretive Data For further hscTnI resources including the diagnostic algorithm and an aid in interpretation, copy and paste this link: https://bjhlab.testcatalog.org/show/hsTrop-1 Current Interpretive Data last revised 2019. Trop I hs pct delta -14 % [facility] Trop I hs interp Equivocal [facility] Blood 04/11/2024 3:41 AM MANAGER LINE 04/11/2024 4:09 AM MANAGER LINE Roberto Medina MD LAB BLOOD ORDERABLES F inal Result Performing Organization Address City/[facility]/ZIP Co de Phone Number [facility] [place] [address] * Sepsis Lactate w/ Reflex (04/11/2024 3:41 AM MANAGER LINE) Sepsis Lactate 2.0 0.7 - 2.0 mmol/L Blood 04/11/2024 3:41 AM MANAGER LINE 04/11/2024 3:48 AM MANAGER LINE Roberto Medina MD LAB BLOOD ORDERABLES F inal Result Performing Organization Address City/[facility] Co de Phone Number [facility] [place] [address] * CT Abdomen Pelvis W Contrast (04/11/2024 2:21 AM MANAGER LINE) Anatomical Region Laterality Modality Body N/A Computed Tomogra phy 04/11/2024 2:42 AM MANAGER LINE Impressions 04/11/2024 1:21 PM MANAGER LINE 1. Peritoneal dialysis catheter in place with [...] Wallace Mederos M.D. Narrative 04/11/2024 1:21 PM MANAGER LINE EXAMINATION: Computed tomography of the abdomen and [...] Result * ECG 12-LEAD (04/11/2024 1:52 AM MANAGER LINE) Narrative [facility] - 04/11/2024 1:52 AM MANAGER LINE Olu Collins MD 04/11/2024 1:54 AM ECG [...] no stemi. Olu Collins MD 04/11/24 0154 us Roberto Medina MD ECG ORDERABLES Final Result Performing Organization Address City/[facility]/ZIP Co de Phone Number [facility] * (ABNORMAL) Troponin I high-sensitivity 2-hour (04/11/2024 1:48 AM MANAGER LINE) Trop I hs 214(C) <=35 ng/L Comment: Previous critical value noted within 48 hours ago. Interpretive Data For further [facility] resources including the diagnostic algorithm and an aid in interpretation, copy and paste this link: https://bjhlab.testcatalog.org/show/hsTrop-1 Current Interpretive Data last revised 2019. Trop I hs pct delta -4 % [facility] Trop I hs interp Insignificant [facility] Blood 04/11/2024 1:48 AM MANAGER LINE 04/11/2024 2:01 AM MANAGER LINE Roberto Medina MD LAB BLOOD ORDERABLES F inal Result [facility] [place] [address] * [place] CRITICAL CARE ILL/INJURED PATIENT INIT 30-74 MIN (04/11/2024 1:29 AM MANAGER LINE) Narrative Olu Collins MD - 04/11/2024 1:29 AM MANAGER LINE Olu Collins MD 04/11/2024 5:14 AM Critical [...] Chest 1 Vw Portable (04/11/2024 1:01 AM MANAGER LINE) Anatomical Region Laterality Modality Body, Chest N/A Computed Radiogr aphy 04/11/2024 1:48 AM MANAGER LINE Impressions 04/11/2024 1:25 PM MANAGER LINE Comparison to 04/11/2024 No pneumothorax. Small lung [...] Wallace Mederos M.D. Narrative 04/11/2024 1:25 PM MANAGER LINE EXAMINATION: 1 view chest radiograph Procedure Note [...] Sepsis Lactate w/ Reflex (04/11/2024 12:17 AM MANAGER LINE) Sepsis Lactate 2.4(H) 0.7 - 2.0 mmol/L Blood 04/11/2024 12:1 7 AM MANAGER LINE 04/11/2024 12:22 AM MANAGER LINE us Prerak Bhavesh Medina MD LAB BLOOD ORDERABLES F inal Result [facility] [place] [address] * (ABNORMAL) Troponin I high-sensitivity series (baseline, 2hr, 4hr, 6hr) (04/10/2024 11:41 PM MANAGER LINE) Trop I hs 223(C) <=35 ng/L Comment: Reviewed Interpretive Data For further hscTnI resources including the diagnostic algorithm and an aid in interpretation, copy and paste this link: https://bjhlab.testcatalog.org/show/hsTrop-1 Current Interpretive Data last revised 2019. Blood 04/10/2024 11:4 1 PM MANAGER LINE 04/10/2024 11:54 PM MANAGER LINE Roberto Medina MD LAB BLOOD ORDERABLES F inal Result Performing Organization Address City/[facility]/ZIP Co de Phone Number [facility] [place] [address] * Critical result callback Cardio chemistry (04/10/2024 11:41 PM MANAGER LINE) Date Notified [id number] Time Notified 108 KERRI [facility] Test name Trop I hs KERRI SIMPSON Called/Read Back Olu SIMPSON Credentials MD KERRI SIMPSON Called By SB KERRI SIMPSON Blood 04/10/2024 11:4 1 PM MANAGER LINE 04/10/2024 11:54 PM MANAGER LINE Roberto Medina MD LAB BLOOD ORDERABLES F inal Result Performing Organization Address [facility] Co de Phone Number [facility] [place] [address] * (ABNORMAL) eGFR (04/10/2024 11:41 PM MANAGER LINE) eGFR 5(L) >=60 mL/min/1. 73 m2 Comment: [...] reviewed 2020. Blood 04/10/2024 11:4 1 PM MANAGER LINE 04/10/2024 11:55 PM MANAGER LINE Sumit Baptiste MD LAB BLOOD ORDERABLES Kenna haider Result [facility] [place] [address] * (ABNORMAL) Differential, auto (04/10/2024 11:41 PM MANAGER LINE) Neutrophil abs 9.3(H) 1.5 - 6.5 K/cumm Imm gran abs 1.1(H) 0.0 - 0.1 K/cumm [facility] Lymphocyte abs 1.6 0.8 - 3.3 K/cumm [facility] Monocyte abs 1.0(H) 0.2 - 0.8 K/cumm [facility] Eosinophil abs 0.1 0.0 - 0.5 K/cumm [facility] Basophil abs 0.1 0.0 - 0.1 K/cumm [facility] Neutrophil pct 71.0 % [facility] Comment: Confirmed by smear review Interpretive Data Percent cell count reference ranges are not reported, since discordance with absolute values may lead to misinterpretation of CBC data. Current Interpretive Data was last revised on 2017. Imm gran pct 8.2 % [facility] Comment: Interpretive Data Percent cell count reference ranges are not reported, since discordance with absolute values may lead to misinterpretation of CBC data. Current Interpretive Data was last revised on 2017. Lymphocyte pct 12.3 % [facility] Comment: Interpretive Data Percent cell count reference ranges are not reported, since discordance with absolute values may lead to misinterpretation of CBC data. Current Interpretive Data was last revised on 2017. Monocyte pct 7.3 % [facility] Comment: Interpretive Data Percent cell count reference ranges are not reported, since discordance with absolute values may lead to misinterpretation of CBC data. Current Interpretive Data was last revised on 2017. Eosinophil pct 0.8 % [facility] Comment: Interpretive Data Percent cell count reference ranges are not reported, since discordance with absolute values may lead to misinterpretation of CBC data. Current Interpretive Data was last revised on 2017. Basophil pct 0.4 % [facility] Comment: Interpretive Data Percent cell count reference ranges are not reported, since discordance with absolute values may lead to misinterpretation of CBC data. Current Interpretive Data was last revised on 2017. Blood 04/10/2024 11:4 1 PM MANAGER LINE 04/10/2024 11:54 PM MANAGER LINE Sumit Baptiste MD LAB BLOOD ORDERABLES Kenna haider Result [facility] [place] [address] * Respiratory pathogen panel Nasopharyngeal (04/10/2024 11:41 PM MANAGER LINE) Pathologist [facility] Influenza A RNA Not Detected Not Detected Influenza B RNA Not Detected Not Detected [facility] RSV RNA Not Detected Not Detected [facility] COVID-19 RNA Not Detected Not Detected [facility] Coronavirus 229E RNA Not Detected Not Detected [facility] Coronavirus HKU1 RNA Not Detected Not Detected [facility] Coronavirus NL63 RNA Not Detected Not Detected [facility] Coronavirus OC43 RNA Not Detected Not Detected [facility] Adenovirus DNA Not Detected Not Detected [facility] Metapneumovirus RNA Not Detected Not Detected [facility] Rhinovirus/Enterov irus RNA Not Detected Not Detected [facility] Parainfluenza 1 RNA Not Detected Not Detected [facility] Parainfluenza 2 RNA Not Detected Not Detected [facility] Parainfluenza 3 RNA Not Detected Not Detected [facility] Parainfluenza 4 RNA Not Detected Not Detected [facility] B. pertussis DNA Not Detected Not Detected [facility] B. parapertussis DNA Not Detected Not Detected [facility] C. pneumoniae DNA Not Detected Not Detected [facility] M. pneumoniae DNA Not Detected Not Detected [facility] Nasopharyngeal 04/10/2024 11 :41 PM MANAGER LINE 04/11/2024 12:16 AM MANAGER LINE Mayelin MANNING [facility] - 04/11/2024 1:23 AM MANAGER LINE Is the Patient experiencing symptoms consistent with COVID?->Unknown Surveillance testing for transplant patient?->No Interpretive Data [employer] Film[employer] Respiratory Panel (RP2.1) assay is [...] assay has FDA clearance for testing of TRANSPORTATION SUPERINTENDENT swabs. The performance of additional specimen types has been assessed by the performing laboratory. The performance characteristics of this assay have been determined by [facility] Molecular Infectious Disease Laboratory. Current interpretive data was last revised on 21. us Roberto Medina MD LAB MICROBIOLOGY - GEN ERAL ORDERABLES Final Result Performing Organization Address [facility] Co de Phone Number [facility] [place] [address] * (ABNORMAL) CBC with auto differential (04/10/2024 11:41 PM MANAGER LINE) WBC 13.1(H) 3.8 - 9.9 K/cumm Hgb 9.8(L) 13.0 - 17.5 g/dL [facility] Hct 30.3(L) 38.9 - 50.3 % [facility] Plt 272 150 - 400 K/cumm [facility] MPV 11.5 9.1 - 12.3 fL [facility] RBC 3.21(L) 4.30 - 5.80 M/cumm [facility] MCV 94.4 81.3 - 96.4 fL [facility] MCH 30.5 27.1 - 33.3 pg [facility] MCHC 32.3 32.3 - 35.7 g/dL [facility] RDW CV 15.8(H) 11.1 - 14.9 % [facility] RDW SD 54.0(H) 35.7 - 48.1 fL [facility] NRBC abs 0.00 0.00 - 0.01 K/cumm [facility] Blood 04/10/2024 11:4 1 PM MANAGER LINE 04/10/2024 11:54 PM MANAGER LINE Olu Collins MD LAB BLOOD ORDERABLES Final Re sult Performing Organization Address City/[facility]/ZIP Co de Phone Number [facility] [place] [address] * Blood culture Blood (04/10/2024 11:41 PM MANAGER LINE) Report Final Report: No growth Blood 04/10/2024 11:4 1 PM MANAGER LINE 04/11/2024 1:59 AM MANAGER LINE Narrative [facility] - 04/15/2024 7:01 AM MANAGER LINE Collection->Peripheral 1. Blood cultures are incubated for [...] performance characteristics have been verified by the [facility]. For questions about this culture, contact the Microbiology Laboratory at [phone]. Interpretive data was last revised on 23. us Prerak Bhavesh Medina MD LAB MICROBIOLOGY - GEN ERAL ORDERABLES Final Result [facility] [place] [address] * Blood culture Blood (04/10/2024 11:41 PM MANAGER LINE) Report Final Report: No growth Blood 04/10/2024 11:4 1 PM MANAGER LINE 04/11/2024 1:59 AM MANAGER LINE Narrative [facility] - 04/15/2024 7:01 AM MANAGER LINE Collection->Peripheral 1. Blood cultures are incubated for [...] performance characteristics have been verified by the [facility]. For questions about this culture, contact the Microbiology Laboratory at [phone]. Interpretive data was last revised on 23. Roberto Median MD LAB MICROBIOLOGY - GEN ERAL ORDERABLES Final Result Performing Organization Address City/[facility]/ZIP Co de Phone Number [facility] [place] [address] * TSH (04/10/2024 11:41 PM MANAGER LINE) Thyroid Stimulating Hormone 3.20 0.30 - 4.20 mcIUnit/mL Blood 04/10/2024 11:4 1 PM MANAGER LINE 04/10/2024 11:55 PM MANAGER LINE lOu Collins MD LAB BLOOD ORDERABLES Final Re sult Performing Organization Address City/[facility]/ZIP Co de Phone Number [facility] [place] [address] * Cholesterol, LDL, direct (04/10/2024 11:41 PM MANAGER LINE) LDL Cholesterol, Direct 41 <=129 mg/dL Comment: [...] on 2017. Blood 04/10/2024 11:4 1 PM MANAGER LINE 04/10/2024 11:55 PM MANAGER LINE Narrative [facility] - 04/11/2024 6:09 PM MANAGER LINE Cholesterol, LDL, direct reflexed based on Elevated Triglyceride (>400) Nicole Boo MD LAB BLOOD ORDERABLES Final Result Performing Organization Address City/[facility] Co de Phone Number [facility] [place] [address] * (ABNORMAL) Hemoglobin A1c (04/10/2024 11:41 PM MANAGER LINE) Pathologist [facility] Hgb A1C 7.0(H) 4.0 - 5.6 % Estimated Average Glucose 154 mg/dL [facility] Comment: The ADA recommends reporting an estimated Average Glucose (eAG) with all Hemoglobin A1c results using the equation derived from a study of 507 normal and diabetic adults. Minority populations were underrepresented and children were not included. (Diabetes Care 2020; 43(S1): S66-S76). The eAG is not equivalent to a fasting glucose. Blood 04/10/2024 11:4 1 PM MANAGER LINE 04/10/2024 11:57 PM MANAGER LINE Saul Engle MD LAB BLOOD ORDERABLES Final Resul t Performing Organization Address City/[facility]/ZIP Co de Phone Number [facility] [place] [address] * (ABNORMAL) Lipid panel (04/10/2024 11:41 PM MANAGER LINE) [facility] Cholesterol 145 30 - 199 mg/dL [...] on 2017. Triglycerides 453(H) <=149 mg/dL [facility] Comment: Interpretive Data Ages < or [...] revised on 2017. HDL 22(L) >=40 mg/dL [facility] Comment: Interpretive Data Ages < or [...] 2017. LDL, calculated See Comment <=129 [facility] Comment: Unable to calculate LDL due to elevated triglyceride. Interpretive Data Ages < or = 19 years Acceptable: <110 mg/dL Borderline high: 110-129 mg/dL High: >or= 130 mg/dL Ages > or = 20 years Optimal: <100 mg/dL Near optimal: 100-129 mg/dL Borderline high: 130-159 mg/dL High: >160 mg/dL Calculated using the Chinmay LDL-C estimating equation. This equation was implemented [...] revised on 2023. Non-HDL Cholesterol 123 mg/dL [facility] Comment: Interpretive Data Ages < [...] last revised on 2017. Chol/HDL ratio 7 [facility] Blood 04/10/2024 11:4 1 PM MANAGER LINE 04/10/2024 11:55 PM MANAGER LINE Nicole Boo MD LAB BLOOD ORDERABLES Final Result [facility] [place] [address] * (ABNORMAL) Comprehensive metabolic panel (04/10/2024 11:41 PM MANAGER LINE) Sodium 141 135 - 145 mmol/L Potassium, pl 3.4 3.3 - 4.9 mmol/L [facility] Chloride 98 97 - 110 mmol/L [facility] CO2 27 22 - 32 mmol/L [facility] Anion gap 16(H) 2 - 15 mmol/L [facility] BUN 45(H) 6 - 25 mg/dL [facility] Creatinine 10.90(H) 0.80 - 1.30 mg/dL [facility] Glucose 240(H) 70 - 199 mg/dL [facility] Comment: Interpretive Data Fasting glucose [...] classification and Diagnosis of Diabetes Diabetes Care 202; 46: S19-S40. Current interpretive data was last revised 2022. Calcium 9.2 8.5 - 10.3 mg/dL [facility] Bilirubin, total 0.2 0.1 - 1.2 mg/dL [facility] Protein, pl 6.5 6.5 - 8.5 g/dL [facility] Albumin 3.1(L) 3.5 - 5.0 g/dL [facility] Alk phos 64 40 - 130 Units/L [facility] ALT 26 7 - 55 Units/L [facility] AST 30 10 - 50 Units/L [facility] Blood 04/10/2024 11:4 1 PM MANAGER LINE 04/10/2024 11:55 PM MANAGER LINE Olu Collins MD LAB BLOOD ORDERABLES Final Re sult [facility] [place] [address] * (ABNORMAL) ECG 12-LEAD (04/10/2024 11:15 PM MANAGER LINE) Narrative [facility] - 04/10/2024 11:15 PM MANAGER LINE Mario Alberto Cornelius MD 04/10/2024 11:17 PM [...] the ED Mario Alberto Cornelius MD 04/10/24 9310 us Olu Collins MD ECG ORDERABLES Final Result [facility] * OCT, Retina - OU - Both Eyes (03/09/2024 2:00 PM MANAGER LINE) Central Macular Thickness OS 227 micrometers CONTINUUM Central Macular Thickness OD 479 micrometers CONTINUUM Anatomical Region Laterality Modality Head Optical Coherenc e Tomography Narrative 03/16/2024 12:53 PM MANAGER LINE Right Eye Quality was good. Scan locations [...]
--- OUTSIDE RECORDS SUMMARY | 2024-05-07 11:02 | XMS_ITS | Encounter Summary ---
Author Organization [facility] Address [facility] [place] [address] Care Team Providers Care Powerhouse Electrician Apprentice Name Role Phone Deandre Bojorquez MD Unavailable [phone] Jeff Strickland MD Primary Care Provider [phone] Encounter Details Date Type Department Care Team (Late st Contact Info) Description 07/31/2023 Lab Requisition [facility] MAIN LAB [address] [place] [id number] Alan Davenport MD [facility] [place] [address] Social History Tobacco Use Types Packs/Day Years [...] Info) Description 06/16/2024 10:00 AM CDT Appointment [facility] NUCLEAR MEDICINE [address] [place] [phone] Alan Davenport MD [address] OF [facility] [place] [address] 06/16/2024 11:00 AM CDT Appointment [facility] NUCLEAR MEDICINE [address] [place] [phone] Alna Davenport MD [address] DIV OF [facility] [place] [address] 06/16/2024 12:20 PM CDT Appointment [facility] CAT SCAN [facility] [place] [address] Alan Davenport MD [address] DIV OF [facility] [place] [address] 06/16/2024 1:00 PM CDT Appointment [facility] ECHO [address] [place] [address] Alan Davenport MD [address] [facility] [place] [address] 06/16/2024 2:00 PM CDT Appointment [facility] US [address] [place] [address] Alan Davenport MD [address] DIV OF [facility] [place] [address] 06/16/2024 2:45 PM CDT Appointment [facility] DIAGNOSTIC RAD OP [address] [place] [address] Alan Davenport MD [address] [facility] [place] [address] 06/16/2024 2:50 PM CDT Appointment [facility] LAB OP DRAW STATION [address] [place] [address] Alan Davenport MD [address] [facility] DIV OF [facility] [place] [address] 06/23/2024 1:00 PM CDT Clinical Support [facility] TRANSPLANT [address] [place] [address] 08/04/2024 11:30 AM CDT Appointment [facility] MRI [facility] [place] [address] Thomas Mendoza MD [address] [facility] 2L [place] [address] 08/04/2024 1:30 PM CDT Office Visit [facility] - Urology [address] [place] [phone] Thomas Mendoza MD [facility]5 [facility] 2L [place] [address] documented as of this encounter Procedures Procedure Name Priority Date/Time Associated Diagnosis Comments HOLD HLA SPECIMEN Routine 07/23/2023 2:0 5 PM CDT documented in this encounter Results * HOLD HLA SPECIMEN (07/23/2023 2:05 PM CDT) Hold HLA Specimen 07/31/2023 3:32 PM CDT [facility] Comment:The Hold HLA specime n has been received into the lab and will be held for 5 years at 4 degrees. Blood BLOOD SPECIMEN / Unknown 07/23/2023 2:05 PM CDT 07/31/2023 2:06 PM CDT Alan Davenport MD LAB - BLOOD BANK ORD ERABLES [facility] [address] [place] [address], [facility] documented in this encounter Visit Diagnoses Not on filedocumented in this encounter Care Teams Powerhouse Electrician Apprentice Relationship Specialty Start Date End Date Jeff Strickland MD [address] [place] [address] PCP - General 03/05/18 [place] [address] [place] [address] Orthopedic Surgery 03/28/17 documented as of this encounter
--- OUTSIDE RECORDS SUMMARY | 2024-05-07 11:03 | XMS_ITS | Encounter Summary ---
Author Organization [facility] Address [address] [place] [address] Care Team Providers Care Marine Surveyor Name Role Phone Deandre Bojorquez MD Unavailable [phone] Jeff Strickland MD Primary Care Provider [phone] Encounter Details Date Type Department Care Team (Late st Contact Info) Description 02/07/2023 Lab Requisition [facility] MAIN LAB [address] [place] [phone] Alan Davenport MD [facility] [place] [address] Social History Tobacco Use Types Packs/Day Years [...] Info) Description 06/16/2024 10:00 AM CDT Appointment [facility] NUCLEAR MEDICINE [address] [place] [phone] Alan Davenport MD [address] DIV OF [facility] [place] [address] 06/16/2024 11:00 AM CDT Appointment [facility] NUCLEAR MEDICINE [address] [place] [phone] Alan Davenport MD [address] DIV OF [facility] [place] [address] 06/16/2024 12:20 PM CDT Appointment [facility] CAT SCAN [facility] [place] [address] Alan Davenport MD [address] DIV OF [facility] [place] [address] 06/16/2024 1:00 PM CDT Appointment [facility] ECHO [address] [place] [address] Alan Davenport MD [address] DIV OF [facility] [place] [address] 06/16/2024 2:00 PM CDT Appointment [facility] US [address] [place] [address] Alan Davenport MD [address] DIV OF [facility] [place] [address] 06/16/2024 2:45 PM CDT Appointment [facility] DIAGNOSTIC RAD OP [address] [place] [address] Alan Dav[facility]port MD [address] [facility] DIV [facility] [place] [address] 06/16/2024 2:50 PM CDT Appointment [facility] LAB OP DRAW STATION [address] [place] [address] Alan Davenport MD [address] [facility] DIV OF [facility] [place] [address] 06/23/2024 1:00 PM CDT Clinical Support [facility] TRANSPLANT [address] [place] [address] 08/04/2024 11:30 AM CDT Appointment [facility] MRI [address] [place] [address] Thomas Mendoza MD [address] [facility] 2L [place] [address] 08/04/2024 1:30 PM CDT Office Visit [facility] - Urology [address] [place] [phone] Thomas Mendoza MD [address] [place] [address] 2L [place] [address] documented as of this encounter Procedures Procedure Name Priority Date/Time Associated Diagnosis Comments HOLD HLA SPECIMEN Routine 2023 7:5 8 AM TNT POWDER WORKER documented in this encounter Results * HOLD HLA SPECIMEN (2023 7:58 AM TNT POWDER WORKER) Hold HLA Specimen 02/07/2023 9:01 AM TNT POWDER WORKER [facility] Comment:The Hold HLA specime n has been received into the lab and will be held for 5 years at 4 degrees. Blood BLOOD SPECIMEN / Unknown 2023 7:58 AM TNT POWDER WORKER 02/07/2023 7:59 AM TNT POWDER WORKER Alan Davenport MD LAB - BLOOD BANK ORD ERABLES [facility] [address] [place] [address], [facility] documented in this encounter Visit Diagnoses Not on filedocumented in this encounter Care Teams Marine Surveyor Relationship Specialty Start Date End Date Jeff Strickland MD [address] [place] [address] PCP - General 03/05/18 [place] [address] [place] [address] Orthopedic Surgery 03/28/17 documented as of this encounter
--- OUTSIDE RECORDS SUMMARY | 2024-05-07 11:03 | XMS_ITS | Encounter Summary ---
Author Organization [facility] Address [address] [place] [address] Care Team Providers Care Shade Cutter Name Role Phone Deandre Bojorquez MD Unavailable [phone] Jeff Strickland MD Primary Care Provider [phone] Encounter Details Date Type Department Care Team (Late st Contact Info) Description 03/12/2024 Lab Requisition [facility] MAIN LAB [address] [place] [phone] Alan Davenport MD [facility]1 [facility] OF ABD [place] [address] Social History Tobacco Use Types Packs/Day Years [...] Info) Description 06/16/2024 10:00 AM CDT Appointment [facility] NUCLEAR MEDICINE [address] [place] [phone] Alan Davenport MD [address] DIV OF [facility] [place] [address] 06/16/2024 11:00 AM CDT Appointment [facility] NUCLEAR MEDICINE [address] [place] [phone] Alan Davenport MD [address] DIV OF [facility] [place] [address] 06/16/2024 12:20 PM CDT Appointment [facility] CAT SCAN [facility] [place] [address] Alan Davenport MD [address] DIV OF [facility] [place] [address] 06/16/2024 1:00 PM CDT Appointment [facility] ECHO [address] [place] [address] Alan Davenport MD [address] DIV OF [facility] [place] [address] 06/16/2024 2:00 PM CDT Appointment [facility] US [address] [place] [address] Alan Davenport MD [address] DIV OF [facility] [place] [address] 06/16/2024 2:45 PM CDT Appointment [facility] DIAGNOSTIC RAD OP [address] [place] [address] Alan Davenport MD [address] [facility] DIV [facility] [place] [address] 06/16/2024 2:50 PM CDT Appointment [facility] LAB OP DRAW STATION [address] [place] [address] Alan Davenport MD [address] [facility] DIV OF [facility] [place] [address] 06/23/2024 1:00 PM CDT Clinical Support [facility] TRANSPLANT [address] [place] [address] 08/04/2024 11:30 AM CDT Appointment [facility] MRI [address] [place] [address] Thomas Mendoza MD [address] [facility] 2L [place] [address] 08/04/2024 1:30 PM CDT Office Visit [facility] - Urology [address] [place] [phone] Thomas Mendoza MD [address] [place] [address] 2[address] [place] [address] documented as of this encounter Procedures Procedure Name Priority Date/Time Associated Diagnosis Comments HOLD HLA SPECIMEN Routine 03/05/2024 1:4 0 PM INTERNAL CONTROL ANALYST documented in this encounter Results * HOLD HLA SPECIMEN (03/05/2024 1:40 PM INTERNAL CONTROL ANALYST) Hold HLA Specimen 03/12/2024 3:00 PM INTERNAL CONTROL ANALYST [facility] Comment:The Hold HLA specime n has been received into the lab and will be held for 5 years at 4 degrees. Blood BLOOD SPECIMEN / Unknown 03/05/2024 1:40 PM INTERNAL CONTROL ANALYST 03/12/2024 1:40 PM INTERNAL CONTROL ANALYST Alan Davenport MD LAB - BLOOD BANK ORD ERABLES [facility] [address] [place] [address], [facility] documented in this encounter Visit Diagnoses Not on filedocumented in this encounter Care Teams Shade Cutter Relationship Specialty Start Date End Date Jeff Strickland MD [address] [place] [address] PCP - General 03/05/18 [place] [address] [place] [address] Orthopedic Surgery 03/28/17 documented as of this encounter
--- OUTSIDE RECORDS SUMMARY | 2024-05-07 11:03 | XMS_ITS | Encounter Summary ---
Author Organization [facility] Address [address] [place] [address] Phone Care Team Providers Care Careers Counsellor Name Role Phone Jeff Strickland MD Primary Care Provider Chan Nicholas MD Unavailable [phone] Alan Mccall MD Unavailable [phone] Lorna Lantigua MD Unavailable [phone] Juliette Savage RN Unavailable Pepito Haro MD PhD Unavailable Solange Guido MD Unavailable [phone] Letha Gil RN Unavailable [phone] Encounter Details Date Type Department Care Team (Late st Contact Info) Description 05/02/2021 Ophth Exam [facility] Ophthalmology [address] [place] [address] 1st [place] [phone] Corina Ventura MD PhD [address] [facility] 6 [place] [address] Social History Tobacco Use Types Packs/Day [...] on file Legal Sex Male 2:23 AM HADOOP ADMINISTRATOR Gender Identity Not on file Sexual [...] COVID: Suspected 03/24/2023 03/24/2023 03/24/2023 5:45 PM HADOOP ADMINISTRATOR COVID19 03/24/2023 03/24/2023 04/08/2023 3:06 AM HADOOP ADMINISTRATOR COVID: Recovered Comment:Added based on recent COVID infection. 04/08/2023 04/10/2023 07/07/2023 3:06 AM C DT COVID: Suspected 04/10/2024 04/10/2024 04/11/2024 1:24 AM HADOOP ADMINISTRATOR C. difficile suspected 04/11/2024 04/11/202404/11 1:21 PM HADOOP ADMINISTRATOR documented as of this encounter Eye Exam [...] arcade Normal Periphery Normal Normal Care Teams Careers Counsellor Relationship Specialty Start Date End Date Jeff Strickland MD [address] [address] PCP - General Family Medicine 04/02/18 Chan Nicholas MD [facility] [address] [address] Consulting Physician Gastroenterology 11/24/18 Alan Mccall MD [facility] [address] [address] Referring Physician Nephrology 11/24/18 Lorna Lantigua MD [facility] [address] [address] Consulting Physician Cardiology 11/24/18 07/22/23 Juliette Savage, RN [address] [place] [address] Nurse Navigator 06/04/21 03/14/22 Pepito Haro MD PhD [address] [place] [address] Consulting Physician Neurosurgery 12/03/22 Solange Guido MD [address] [facility] [address] [place] [address] Referring Physician Cardiovascular Disease 07/23/23 Letha Gil, RN [address] [facility] [address] [place] [address] SHOP Outpatient Director Channel 04/14/24 04/18/24 documented as of this encounter
--- OUTSIDE RECORDS SUMMARY | 2024-05-07 11:03 | XMS_ITS | Clinical Summary ---
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 Active aspirin (ANGELLA) 325 mg tablet Take 325 mg by mouth daily. Active Vit C-Vit U-Gggnon-QrHw-L utein (PRESERVISION) 226 mg-200 unit -5 mg-0.8 [...] Department Care Team Description 03/03/2024 2:05 PM LINSEED OIL BOILER Ancillary Procedure [facility] [address] [place] [address] Sergio Rivera MD Pain in [...] Comments Blood Pressure 167/77 02/04/2019 9:16 AM LINSEED OIL BOILER Pulse 64 02/04/2019 9:16 AM LINSEED OIL BOILER Temperature 36.5 C (97.7 F) 02/04/2019 9:16 AM LINSEED OIL BOILER Respiratory Rate 16 02/04/2019 9:16 AM LINSEED OIL BOILER Oxygen Saturation 97% 02/04/2019 9:16 AM LINSEED OIL BOILER Inhaled Oxygen Concentration - - Weight 113.4 kg (250 lb) 02/04/2019 9:16 AM LINSEED OIL BOILER Height 175.3 cm (5' 9 ) 02/04/2019 9:16 AM LINSEED OIL BOILER Body Mass Index 36.92 02/04/2019 9:16 AM LINSEED OIL BOILER Plan of Treatment Health Maintenance Due Date [...] years 1-dose series) 2016 PNEUMOCOCCAL VACCINE 50+ YEA RS (2 of 2 - PPSV23) 10/04/2020 08/09/2020, 08/09/2020, 02/09/2020, Additional history exists DIABETES ANNUAL FOOT EXAM 10/18/2022 10/18/2021 INFLUENZA VACCINE (#1) 2023 , 01/17/2020, 01/17/2020, Additional history exists COVID-19 Vaccine (4 - 2023-2 5 season) 2023 05/05/2020, 04/20/2020, 03/20/2020 Preventative Visit- Commercial 02/18/2024 DIABETES HBA1C Q 6 MONTHS 10/24/20242024, 04/10/2024, 11/07/2023, Additional history exists DIABETES ANNUAL RETINAL EXAM 03/09/2025, 12/10/2023, 10/08/2023 DTAP/TDAP/TD VACCINES (3 - T d or Tdap) 04/10/2026 04/10/2016, 04/09/2016 Procedures Procedure Name Priority Date/Time Associated Diagnosis Comments XR SHOULDER 2+ VW BILAT Routine 03/03/2024 2:26 PM LINSEED OIL BOILER Pain in shoulder region, left Pain in shoulder region, right from Last 3 Months Results * XR SHOULDER 2+ VW BILAT (03/03/2024 2:26 PM LINSEED OIL BOILER) Anatomical Region Laterality Modality Upper Extremity Computed Radiogr aphy 03/03/2024 2:27 PM LINSEED OIL BOILER Impressions 03/03/2024 2:34 PM LINSEED OIL BOILER IMPRESSION: 1. 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 Narrative 03/03/2024 2:34 PM LINSEED OIL BOILER EXAM: XR SHOULDER 2+ VW BILAT DATE: [...] Final Result from Last 3 Months Insurance AETNA MEDICARE SUPPLEMENT AETNA PPO MCR BCBS BLUE ACCESS/TRUE BLUE PPO Care Teams Check Examiner Relationship Specialty Start Date End Date Jeff Strickland MD [address] [facility] [address] [place] [address] PCP - General Family Practice 01/01/19
--- OUTSIDE RECORDS SUMMARY | 2024-05-07 11:03 | XMS_ITS | CONTINUITY OF CARE DOCUMENT ---
Author Name sally zavala Address Unknown Organization [facility] Address [address] [facility] [address] [place] [address] Phone [phone] Care Team Providers Care Manager Financial Name Role Phone Jason Becerra MD Unavailable DONNIE WOOD MD Unavailable [phone] DONNIE WOOD MD Unavailable [phone] PROBLEMS Condition Status Date Provider Notes [...] In-person encounter Office Visit Jason Becerra MD [facility] - In-person encounter Office Visit Jason Becerra MD [facility] Fatigue - In-person encounter Office Visit Jason Becerra MD [facility] Chest pain-type to be determined - In-person encounter Office Visit Jason Becerra MD 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 [id number] ADVANCE DIRECTIVES Name Date POWER OF GEOLOGY FACULTY MEMBER TREATMENT PLAN Date Name Performer Cardiology follow up Jason hernandez MD Cardiology follow up Jason hernandez MD Cardiology follow up Jason hernandez MD Cardiology follow up Jason hernandez MD Cardiology follow up Jason hernandez MD Cardiology follow up Jason hernandez MD Cardiology follow up Jason hernandez MD Cardiology follow up Jason hernandez MD Cardiology follow up Jason hernanedz MD Cardiology follow up :The patient is [...] Becerra MD Cardiology Jason Becerra MD Cardiology aJson Becerra MD Cardiology Jason Becerra MD Cardiology New Patient Jason lantigua MD Cardiology New Patient Jason lantigua MD Cardiology New Patient Jason lantigua MD Cardiology New Patient Jason lantigua MD Cardiology New Patient Jason lantigua MD Cardiology New Patient Jason lantigua MD Date Name BASIC METABOLIC PANE L W/EGFR Complete Echo BASIC METABOLIC PANE L W/EGFR DLCO - 50848 FRC - 89990 FVC - 05419 HISTORY OF PROCEDURES Procedure Date Procedure Name Provider Procedure Notes S tatus EKG Jason Becerra MD complete d Regadenoson, 4 units Jason Becerra MD completed Cardiolite, 2 units Jason Becerra MD completed SPECT Images Jason Becerra MD comple wendy Stress EKG Jason Becerra MD complete d FVC / MVV - 55736 Jason Becerra MD c ompleted BLOOD COUNT HEMOGLOBIN Jason Becerra MD completed FRC - 46848 Jason Becerra MD complet ed SpO2 w/o 6min walk/titration Jason Becerra MD completed DLCO - 55714 Jason nguyen DEMETRIS Becerra MD complete d
--- OUTSIDE RECORDS SUMMARY | 2024-05-07 11:03 | XMS_ITS ---
Author Organization [facility] Address [address] [facility] [place] [address] Care Team Providers Care Manager Sql Name Role Phone DONNIE WOOD MD Primary Care Provider Unavaila Sergio Trujillo Unavailable [phone] Encounters Encounter Location Date Provider Diagnosis [facility] [address] [facility] [place] [address] [place] [address] 03/31/2024 Sergio Rivera PLAN OF TREATMENT No Information
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
--- OUTSIDE RECORDS SUMMARY | 2024-05-07 11:03 | XMS_ITS | Encounter Summary ---
Author Organization [facility] Address [facility] [place] [address] Care Team Providers Care Forger Helper Name Role Phone Deandre Bojorquez MD Unavailable [phone] Jeff Strickland MD Primary Care Provider [phone] Encounter Details Date Type Department Care Team (Late st Contact Info) Description 04/10/2023 Lab Requisition [facility] MAIN LAB [address] [place] [phone] Alan Davenport MD [facility] [place] [address] Social History Tobacco Use Types Packs/Day Years [...] Info) Description 06/16/2024 10:00 AM CDT Appointment [facility] NUCLEAR MEDICINE [address] [place] [phone] Alan Davenport MD [address] DIV OF [facility] [place] [address] 06/16/2024 11:00 AM CDT Appointment [facility] NUCLEAR MEDICINE [address] [place] [phone] Alan Davenport MD [address] DIV OF [facility] [place] [address] 06/16/2024 12:20 PM CDT Appointment [facility] CAT SCAN [facility] [place] [address] Alan Davenport MD [address] DIV OF [facility] [place] [address] 06/16/2024 1:00 PM CDT Appointment [facility] ECHO [address] [place] [address] Alan Davenport MD [address] DIV OF [facility] [place] [address] 06/16/2024 2:00 PM CDT Appointment [facility] US [address] [place] [address] Alan Davenport MD [address] DIV OF [facility] [place] [address] 06/16/2024 2:45 PM CDT Appointment [facility] DIAGNOSTIC RAD OP [address] [place] [address] Alan Davenport MD [address] [facility] DIV [facility] [place] [address] 06/16/2024 2:50 PM CDT Appointment [facility] LAB OP DRAW STATION [address] [place] [address] Alan Davenport MD [address] [facility] DIV OF [facility] [place] [address] 06/23/2024 1:00 PM CDT Clinical Support [facility] TRANSPLANT [address] [place] [address] 08/04/2024 11:30 AM CDT Appointment [facility] MRI [facility] [place] [address] Thomas Mendoza MD [address] [facility] 2L [place] [address] 08/04/2024 1:30 PM CDT Office Visit [facility] - Urology [address] [place] [phone] Thomas Mendoza MD [address] [place] [address] [address] [place] [address] documented as of this encounter Procedures Procedure Name Priority Date/Time Associated Diagnosis Comments HOLD HLA SPECIMEN Routine 04/02/2023 3:0 1 PM PUBLIC RELATIONS COORDINATOR documented in this encounter Results * HOLD HLA SPECIMEN (04/02/2023 3:01 PM PUBLIC RELATIONS COORDINATOR) Hold HLA Specimen 04/10/2023 4:01 PM PUBLIC RELATIONS COORDINATOR [facility] Comment:The Hold HLA specime n has been received into the lab and will be held for 5 years at 4 degrees. Blood BLOOD SPECIMEN / Unknown 04/02/2023 3:01 PM PUBLIC RELATIONS COORDINATOR 04/10/2023 3:01 PM PUBLIC RELATIONS COORDINATOR Alan Davenport MD LAB - BLOOD BANK ORD ERABLES [facility] [address] [place] [address], [facility] documented in this encounter Visit Diagnoses Not on filedocumented in this encounter Care Teams Forger Helper Relationship Specialty Start Date End Date Jeff Strickland MD [address] [place] [address] PCP - General 03/05/18 [place] [address] [place] [id number] Orthopedic Surgery 03/28/17 documented as of this encounter
--- OUTSIDE RECORDS SUMMARY | 2024-05-07 11:03 | XMS_ITS ---
Author Organization [facility] Address [address] [facility] [place] [address] Care Team Providers Care Applications Instructor Name Role Phone Deandre Bojorquez MD Unavailable [phone] Jeff Strickland MD Primary Care Provider Transplant Episode Kidney Candidate [facility] ([employer] [place], [place]) - [facility] Center waitlisted on 05/06/2022 Marked as Inactive on 12/19/2022 Reason: Temporarily too Sick Kidney CoordinatorSavanna Edwards RN Phone: N/A Fax: N/A Email: N/A Scores Score Value Updated Exceptions/Reas ons CPRA Not available EPTS (Calc) 95 05/07/2024 [place] Organ Diagnosis Organ Primary Contributory Kidney Diabetes Mellitus - Type II Hype rtensive Nephrosclerosis Care Team Name Role Phone Fax Email Savanna Edwards RN Kidney Coordinator N/A N/A N/A Alan Mccall MD Referring Physician N/A N/A N/A Anjali Mott LMSW Production Painter N/A N/A N/A Millie Lindquist Pst Supervisor N/A N/A N/A Events Pre-Transplant Referred: 12/05/2021 Evaluation began: 12/13/2021 Committee: 05/02/2022 UNOS qualified: 01/17/2020 Center waitlisted: 05/06/2022 Dialysis History Dialysis History Start End Type Comments Center 01/17/2020 Peritoneal [facility] Information Center Phone Fax Address [facility] [phone] [address] [place] [phone]
--- OUTSIDE RECORDS SUMMARY | 2024-05-07 11:03 | XMS_ITS | Clinical Summary ---
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 glucose (04/11/2024 12:10 PM SUPPLY CHAIN PROCUREMENT MANAGER) Glucose, POC 193 70 - 199 mg/dL Blood 04/11/2024 12:1 0 PM SUPPLY CHAIN PROCUREMENT MANAGER 04/11/2024 12:10 PM SUPPLY CHAIN PROCUREMENT MANAGER Nicole Boo MD LAB POCT ORDERABLES - DEVIC E Final Result Performing Organization Address [facility] [place] [address] * C. difficile testing Stool (04/11/2024 8:41 AM SUPPLY CHAIN PROCUREMENT MANAGER) [facility] Result Negative Negative Toxin Result Negative Negative [facility] C. diff result Negative, free toxin Negative, free toxin [facility] C. diff interp Negative for toxigenic Clostridioides (Clostridium) difficile. Analysis was performed using a glutamate dehydrogenase antigen detection assay combined with a C. difficile toxin detection assay. [facility] Stool 04/11/2024 8:41 AM SUPPLY CHAIN PROCUREMENT MANAGER 04/11/2024 11:19 AM SUPPLY CHAIN PROCUREMENT MANAGER Nicole Boo MD LAB MICROBIOLOGY - GENERAL ORDERABLES Final Result Performing Organization Address [facility] [place] [address] * H. pylori antigen, stool Stool (04/11/2024 8:41 AM SUPPLY CHAIN PROCUREMENT MANAGER) H. pylori Ag, stool Negative Negative Comment: Interpretative Data Testing performed at the [facility] using the Curian HpSA lateral [...] revised February 2020. Stool 04/11/2024 8:41 AM SUPPLY CHAIN PROCUREMENT MANAGER 04/11/2024 11:20 AM SUPPLY CHAIN PROCUREMENT MANAGER Nicole Boo MD LAB MICROBIOLOGY - GENERAL ORDERABLES Final Result Performing Organization Address [facility] de Phone Number [facility] [place] [address] * Infection Prevention VRE Culture Stool (04/11/2024 8:41 AM SUPPLY CHAIN PROCUREMENT MANAGER) Report Final Report: Negative Stool 04/11/2024 8:41 AM SUPPLY CHAIN PROCUREMENT MANAGER 04/11/2024 1:46 PM SUPPLY CHAIN PROCUREMENT MANAGER Narrative [facility] - 04/13/2024 2:39 PM SUPPLY CHAIN PROCUREMENT MANAGER Surveillance culture for Infection Prevention purposes only; results indicate colonization, not infection requiring treatment. Testing performed by [facility] ([phone]). Nicole Boo MD LAB MICROBIOLOGY - GENERAL ORDERABLES Final Result Performing Organization Address City/[facility]/ZIP Co de Phone Number [facility] [place] [address] * Stool culture Stool Rectum (04/11/2024 8:41 AM SUPPLY CHAIN PROCUREMENT MANAGER) Pathologist [facility] Direct Specimen Exam Shiga Toxin Testing: Antigen detection assay for Shiga-toxin NEGATIVE for Shiga Toxin 1 and Shiga Toxin 2. Report Final Report: No growth of enteric bacterial pathogens [facility] Stool (Rectum) 04/11/2024 8: 41 AM SUPPLY CHAIN PROCUREMENT MANAGER 04/11/2024 11:21 AM SUPPLY CHAIN PROCUREMENT MANAGER Narrative [facility] - 04/15/2024 10:42 AM SUPPLY CHAIN PROCUREMENT MANAGER Testing performed by [facility] ([phone]). Routine stool cultures include procedures to detect Salmonella, Shigella, Edwardsiella, Aeromonas, Pleisiomonas, Campylobacter, Yersinia, E. coli O157, and Shiga-like toxins. Vibrio is cultured only upon special request. If Vibrio is suspected, please call the laboratory at [phone]. Interpretive data was last updated June 24, 2016. Nicole Boo MD LAB MICROBIOLOGY - GENERAL ORDERABLES Final Result Performing Organization Address City/[facility]/ZIP Co de Phone Number [facility] Department [place] [address] * POCT glucose (04/11/2024 8:30 AM SUPPLY CHAIN PROCUREMENT MANAGER) Pathologist [facility] Glucose, POC 150 70 - 199 mg/dL Blood 04/11/2024 8:30 AM SUPPLY CHAIN PROCUREMENT MANAGER 04/11/2024 8:30 AM SUPPLY CHAIN PROCUREMENT MANAGER Nicole Boo MD LAB POCT ORDERABLES - DEVIC E Final Result Performing Organization Address [facility] de Phone Number [facility] [place] [address] * (ABNORMAL) Troponin I high-sensitivity 6-hour (04/11/2024 4:47 AM SUPPLY CHAIN PROCUREMENT MANAGER) [facility] Trop I hs 193(H) <=35 ng/L Comment: Interpretive Data For further hscTnI resources including the diagnostic algorithm and an aid in interpretation, copy and paste this link: https://bjhlab.testcatalog.org/show/hsTrop-1 Current Interpretive Data last revised 2019. Trop I hs pct delta -13 % [facility] Trop I hs interp Equivocal [facility] Blood 04/11/2024 4:47 AM SUPPLY CHAIN PROCUREMENT MANAGER 04/11/2024 5:05 AM SUPPLY CHAIN PROCUREMENT MANAGER Robreto Medina MD LAB BLOOD ORDERABLES F inal Result Performing Organization Address [facility] de Phone Number [facility] [place] [address] * Cell Differential, Body Fluid (04/11/2024 3:51 AM SUPPLY CHAIN PROCUREMENT MANAGER) [facility] Total cells diffed 100 cells Comment: Interpretive Data Unless otherwise specified, the reference range and other method performance specifications have not been established for CSF/Body Fluid tests. The test results should be integrated into the clinical context for interpretation. Current interpretive data was last revised on 2018. Neutrophils, fld 6 % [facility] Lymphs, fld 21 % [facility] Monocyte, fld 66 % [facility] Basophils, fld 1 % [facility] Macrophages, fld 2 % [facility] Mesothelial cells, fld 4 % [facility] Fluid 04/11/2024 3:51 AM SUPPLY CHAIN PROCUREMENT MANAGER 04/11/2024 5:30 AM SUPPLY CHAIN PROCUREMENT MANAGER Saul Engle MD LAB BODY FLUIDS AND STOOLS ORDER MICHELLE Final Result Performing Organization Address [facility] de Phone Number [facility] Department [place] [address] * Cell count w/rflx diff, body fluid (04/11/2024 3:51 AM SUPPLY CHAIN PROCUREMENT MANAGER) Specimen type, fld Dialysate Color, fld Straw [facility] Clarity, fld Clear Clear [facility] Nucleated cells, fld 21 /cumm [facility] Comment: Interpretive Data Unless otherwise specified, the reference range and other method performance specifications have not been established for CSF/Body Fluid tests. The test results should be integrated into the clinical context for interpretation. Current interpretive data was last revised on 2018. RBC, fld 0 /cumm [facility] Fluid 04/11/2024 3:51 AM SUPPLY CHAIN PROCUREMENT MANAGER 04/11/2024 5:30 AM SUPPLY CHAIN PROCUREMENT MANAGER Saul Engle MD LAB BODY FLUIDS AND STOOLS ORDER MICHELLE Final Result Performing Organization Address [facility] de Phone Number [facility] Department [place] [address] * Aerobic and anaerobic culture and gram stain Peritoneal dialysis fluid Peritoneum (04/11/2024 3:51 AM SUPPLY CHAIN PROCUREMENT MANAGER) Direct Specimen Exam Stain: Cytospin Gram stain shows: Rare polymorphonuclear leukocytes seen. Other cellular material present. No organisms seen. Report Final Report: No growth [facility] Peritoneal dialysis fluid (Peritoneum) 04/11/2024 3:51 AM SUPPLY CHAIN PROCUREMENT MANAGER 04/11/2024 6:13 AM SUPPLY CHAIN PROCUREMENT MANAGER Narrative [facility] - 04/17/2024 12:22 PM SUPPLY CHAIN PROCUREMENT MANAGER Fluid specimen received. Testing performed by [facility] ([phone]) Specimens submitted from normally sterile body sites [...] ORDER MICHELLE Final Result Performing Organization Address [facility] Co de Phone Number [facility] Department [place] [address] * (ABNORMAL) POCT glucose (04/11/2024 3:43 AM SUPPLY CHAIN PROCUREMENT MANAGER) Glucose, POC 223(H) 70 - 199 mg/dL Blood 04/11/2024 3:43 AM SUPPLY CHAIN PROCUREMENT MANAGER 04/11/2024 3:43 AM SUPPLY CHAIN PROCUREMENT MANAGER Saul Engle MD LAB POCT ORDERABLES - DEVICE Fin al Result Performing Organization Address [facility] Co de Phone Number [facility] [place] [address] * (ABNORMAL) Troponin I high-sensitivity 4-hour (04/11/2024 3:41 AM SUPPLY CHAIN PROCUREMENT MANAGER) Trop I hs 192(H) <=35 ng/L Comment: Interpretive Data For further hscTnI resources including the diagnostic algorithm and an aid in interpretation, copy and paste this link: https://bjhlab.testcatalog.org/show/hsTrop-1 Current Interpretive Data last revised 2019. Trop I hs pct delta -14 % [facility] Trop I hs interp Equivocal [facility] Blood 04/11/2024 3:41 AM SUPPLY CHAIN PROCUREMENT MANAGER 04/11/2024 4:09 AM SUPPLY CHAIN PROCUREMENT MANAGER us Roberto Medina MD LAB BLOOD ORDERABLES F inal Result [facility] Department [place] [address] * Sepsis Lactate w/ Reflex (04/11/2024 3:41 AM SUPPLY CHAIN PROCUREMENT MANAGER) Sepsis Lactate 2.0 0.7 - 2.0 mmol/L Blood 04/11/2024 3:41 AM SUPPLY CHAIN PROCUREMENT MANAGER 04/11/2024 3:48 AM SUPPLY CHAIN PROCUREMENT MANAGER Premat Medina MD LAB BLOOD ORDERABLES F inal Result Performing Organization Address [facility] de Phone Number [facility] SIMPSON [facility] Department [place] [address] * CT Abdomen Pelvis W Contrast (04/11/2024 2:21 AM SUPPLY CHAIN PROCUREMENT MANAGER) Anatomical Region Laterality Modality Body N/A Computed Tomogra phy 04/11/2024 2:42 AM SUPPLY CHAIN PROCUREMENT MANAGER Impressions 04/11/2024 1:21 PM SUPPLY CHAIN PROCUREMENT MANAGER 1. Peritoneal dialysis catheter in place with [...] Wallace Mederos M.D. Narrative 04/11/2024 1:21 PM SUPPLY CHAIN PROCUREMENT MANAGER EXAMINATION: Computed tomography of the abdomen and [...] it. Electronically signed by: Wallace Mederos M.D. Roberto Medina MD IMG CT PROCEDURES Kenna l Result * ECG 12-LEAD (04/11/2024 1:52 AM SUPPLY CHAIN PROCUREMENT MANAGER) Narrative [facility] - 04/11/2024 1:52 AM SUPPLY CHAIN PROCUREMENT MANAGER Olu Collins MD 04/11/2024 1:54 AM ECG [...] ECG ORDERABLES Final Result Performing Organization Address [facility] Co de Phone Number [facility] * (ABNORMAL) Troponin I high-sensitivity 2-hour (04/11/2024 1:48 AM SUPPLY CHAIN PROCUREMENT MANAGER) Trop I hs 214(C) <=35 ng/L Comment: Previous critical value noted within 48 hours ago. Interpretive Data For further hscTnI resources including the diagnostic algorithm and an aid in interpretation, copy and paste this link: https://bjhlab.testcatalog.org/show/hsTrop-1 Current Interpretive Data last revised 2019. Trop I hs pct delta -4 % [facility] Trop I hs interp Insignificant [facility] Blood 04/11/2024 1:48 AM SUPPLY CHAIN PROCUREMENT MANAGER 04/11/2024 2:01 AM SUPPLY CHAIN PROCUREMENT MANAGER Roberto Medina MD LAB BLOOD ORDERABLES F inal Result Performing Organization Address [facility] Co de Phone Number [facility] Department [place] [address] * [place] CRITICAL CARE ILL/INJURED PATIENT INIT 30-74 MIN (04/11/2024 1:29 AM SUPPLY CHAIN PROCUREMENT MANAGER) Narrative Olu Collins MD - 04/11/2024 1:29 AM SUPPLY CHAIN PROCUREMENT MANAGER Olu Collins MD 04/11/2024 5:14 AM Critical [...] Chest 1 Vw Portable (04/11/2024 1:01 AM SUPPLY CHAIN PROCUREMENT MANAGER) Anatomical Region Laterality Modality Body, Chest N/A Computed Radiogr aphy 04/11/2024 1:48 AM SUPPLY CHAIN PROCUREMENT MANAGER Impressions 04/11/2024 1:25 PM SUPPLY CHAIN PROCUREMENT MANAGER Comparison to 04/11/2024 No pneumothorax. Small lung [...] Wallace Mederos M.D. Narrative 04/11/2024 1:25 PM SUPPLY CHAIN PROCUREMENT MANAGER EXAMINATION: 1 view chest radiograph Procedure Note [...] it. Electronically signed by: Wallace Mederos M.D. Roberto Medina MD IMG XR PROCEDURES Kenna l Result * (ABNORMAL) Sepsis Lactate w/ Reflex (04/11/2024 12:17 AM SUPPLY CHAIN PROCUREMENT MANAGER) Sepsis Lactate 2.4(H) 0.7 - 2.0 mmol/L Blood 04/11/2024 12:1 7 AM SUPPLY CHAIN PROCUREMENT MANAGER 04/11/2024 12:22 AM SUPPLY CHAIN PROCUREMENT MANAGER Roberto Medina MD LAB BLOOD ORDERABLES F inal Result Performing Organization Address [facility] Co de Phone Number [facility] [place] [address] * (ABNORMAL) Troponin I high-sensitivity series (baseline, 2hr, 4hr, 6hr) (04/10/2024 11:41 PM SUPPLY CHAIN PROCUREMENT MANAGER) Trop I hs 223(C) <=35 ng/L Comment: Reviewed Interpretive Data For further hscTnI resources including the diagnostic algorithm and an aid in interpretation, copy and paste this link: https://bjhlab.testcatalog.org/show/hsTrop-1 Current Interpretive Data last revised 2019. Blood 04/10/2024 11:4 1 PM SUPPLY CHAIN PROCUREMENT MANAGER 04/10/2024 11:54 PM SUPPLY CHAIN PROCUREMENT MANAGER Roberto Medina MD LAB BLOOD ORDERABLES F inal Result Performing Organization Address City/[facility] Co de Phone Number [facility] [place] [address] * Critical result callback Cardio chemistry (04/10/2024 11:41 PM SUPPLY CHAIN PROCUREMENT MANAGER) Date Notified [id number] Time Notified 108 [facility] Test name [facility] hs [facility]Read Back Olu [facility] Credentials MD [facility] Called By KIM [facility] Blood 04/10/2024 11:4 1 PM SUPPLY CHAIN PROCUREMENT MANAGER 04/10/2024 11:54 PM SUPPLY CHAIN PROCUREMENT MANAGER Roberto Medina MD LAB BLOOD ORDERABLES F inal Result Performing Organization Address City/[facility]/ZIP Co de Phone Number [facility] [place] [address] * (ABNORMAL) eGFR (04/10/2024 11:41 PM SUPPLY CHAIN PROCUREMENT MANAGER) eGFR 5(L) >=60 mL/min/1. 73 m2 Comment: [...] reviewed 2020. Blood 04/10/2024 11:4 1 PM SUPPLY CHAIN PROCUREMENT MANAGER 04/10/2024 11:55 PM SUPPLY CHAIN PROCUREMENT MANAGER us Sumit Baptiste MD LAB BLOOD ORDERABLES Kenna l Result Performing Organization Address City/[facility]/ZIP Co de Phone Number [facility] Department [place] [address] * (ABNORMAL) Differential, auto (04/10/2024 11:41 PM SUPPLY CHAIN PROCUREMENT MANAGER) Neutrophil abs 9.3(H) 1.5 - 6.5 K/cumm Imm gran abs 1.1(H) 0.0 - 0.1 K/cumm [facility] Lymphocyte abs 1.6 0.8 - 3.3 K/cumm [facility] Monocyte abs 1.0(H) 0.2 - 0.8 K/cumm [facility] Eosinophil abs 0.1 0.0 - 0.5 K/cumm [facility] Basophil abs 0.1 0.0 - 0.1 K/cumm [facility] Neutrophil pct 71.0 % [facility] Comment: Confirmed by smear review Interpretive Data Percent cell count reference ranges are not reported, since discordance with absolute values may lead to misinterpretation of CBC data. Current Interpretive Data was last revised on 2017. Imm gran pct 8.2 % [facility] Comment: Interpretive Data Percent cell count reference ranges are not reported, since discordance with absolute values may lead to misinterpretation of CBC data. Current Interpretive Data was last revised on 2017. Lymphocyte pct 12.3 % [facility] Comment: Interpretive Data Percent cell count reference ranges are not reported, since discordance with absolute values may lead to misinterpretation of CBC data. Current Interpretive Data was last revised on 2017. Monocyte pct 7.3 % [facility] Comment: Interpretive Data Percent cell count reference ranges are not reported, since discordance with absolute values may lead to misinterpretation of CBC data. Current Interpretive Data was last revised on 2017. Eosinophil pct 0.8 % [facility] Comment: Interpretive Data Percent cell count reference ranges are not reported, since discordance with absolute values may lead to misinterpretation of CBC data. Current Interpretive Data was last revised on 2017. Basophil pct 0.4 % [facility] Comment: Interpretive Data Percent cell count reference ranges are not reported, since discordance with absolute values may lead to misinterpretation of CBC data. Current Interpretive Data was last revised on 2017. Blood 04/10/2024 11:4 1 PM SUPPLY CHAIN PROCUREMENT MANAGER 04/10/2024 11:54 PM SUPPLY CHAIN PROCUREMENT MANAGER Sumit Baptiste MD LAB BLOOD ORDERABLES Kenna vitaly Result [facility] Department [place] [address] * Respiratory pathogen panel Nasopharyngeal (04/10/2024 11:41 PM SUPPLY CHAIN PROCUREMENT MANAGER) Pathologist [facility] Influenza A RNA Not Detected Not Detected Influenza B RNA Not Detected Not Detected [facility] RSV RNA Not Detected Not Detected [facility] COVID-19 RNA Not Detected Not Detected [facility] Coronavirus 229E RNA Not Detected Not Detected [facility] Coronavirus HKU1 RNA Not Detected Not Detected [facility] Coronavirus NL63 RNA Not Detected Not Detected [facility] Coronavirus OC43 RNA Not Detected Not Detected [facility] Adenovirus DNA Not Detected Not Detected [facility] Metapneumovirus RNA Not Detected Not Detected [facility] Rhinovirus/Enterov irus RNA Not Detected Not Detected [facility] Parainfluenza 1 RNA Not Detected Not Detected [facility] Parainfluenza 2 RNA Not Detected Not Detected [facility] Parainfluenza 3 RNA Not Detected Not Detected [facility] Parainfluenza 4 RNA Not Detected Not Detected [facility] B. pertussis DNA Not Detected Not Detected [facility] B. parapertussis DNA Not Detected Not Detected [facility] C. pneumoniae DNA Not Detected Not Detected [facility] M. pneumoniae DNA Not Detected Not Detected [facility] Nasopharyngeal 04/10/2024 11 :41 PM SUPPLY CHAIN PROCUREMENT MANAGER 04/11/2024 12:16 AM SUPPLY CHAIN PROCUREMENT MANAGER Narrative [facility] - 04/11/2024 1:23 AM SUPPLY CHAIN PROCUREMENT MANAGER Is the Patient experiencing symptoms consistent with COVID?->Unknown Surveillance testing for transplant patient?->No Interpretive Data The SincroPool FilmArray Respiratory Panel (RP2.1) assay is a [...] assay has FDA clearance for testing of PROP AND SCENERY MAKER swabs. The performance of additional specimen types has been assessed by the performing laboratory. The performance characteristics of this assay have been determined by [facility] Molecular Infectious Disease Laboratory. Current interpretive data was last revised on 21. us Prerak Bhavesh Medina MD LAB MICROBIOLOGY - GEN ERAL ORDERABLES Final Result [facility] Department [place] [address] * (ABNORMAL) CBC with auto differential (04/10/2024 11:41 PM SUPPLY CHAIN PROCUREMENT MANAGER) WBC 13.1(H) 3.8 - 9.9 K/cumm Hgb 9.8(L) 13.0 - 17.5 g/dL [facility] Hct 30.3(L) 38.9 - 50.3 % [facility] Plt 272 150 - 400 K/cumm [facility] MPV 11.5 9.1 - 12.3 fL [facility] RBC 3.21(L) 4.30 - 5.80 M/cumm [facility] MCV 94.4 81.3 - 96.4 fL [facility] MCH 30.5 27.1 - 33.3 pg [facility] MCHC 32.3 32.3 - 35.7 g/dL [facility] RDW CV 15.8(H) 11.1 - 14.9 % [facility] RDW SD 54.0(H) 35.7 - 48.1 fL [facility] NRBC abs 0.00 0.00 - 0.01 K/cumm [facility] Blood 04/10/2024 11:4 1 PM SUPPLY CHAIN PROCUREMENT MANAGER 04/10/2024 11:54 PM SUPPLY CHAIN PROCUREMENT MANAGER us Olu Collins MD LAB BLOOD ORDERABLES Final Re sult [facility] Department [place] [address] * Blood culture Blood (04/10/2024 11:41 PM SUPPLY CHAIN PROCUREMENT MANAGER) Pathologist [facility] Report Final Report: No growth Blood 04/10/2024 11:4 1 PM SUPPLY CHAIN PROCUREMENT MANAGER 04/11/2024 1:59 AM SUPPLY CHAIN PROCUREMENT MANAGER Narrative [facility] - 04/15/2024 7:01 AM SUPPLY CHAIN PROCUREMENT MANAGER Collection->Peripheral 1. Blood cultures are incubated for [...] performance characteristics have been verified by the [facility] Microbiology Laboratory. For questions about this culture, contact the Microbiology Laboratory at [phone]. Interpretive data was last revised on 23. us Prerak Bhavesh Medina MD LAB MICROBIOLOGY - GEN ERAL ORDERABLES Final Result [facility] Department [place] [address] * Blood culture Blood (04/10/2024 11:41 PM SUPPLY CHAIN PROCUREMENT MANAGER) Report Final Report: No growth Blood 04/10/2024 11:4 1 PM SUPPLY CHAIN PROCUREMENT MANAGER 04/11/2024 1:59 AM SUPPLY CHAIN PROCUREMENT MANAGER Narrative [facility] - 04/15/2024 7:01 AM SUPPLY CHAIN PROCUREMENT MANAGER Collection->Peripheral 1. Blood cultures are incubated for [...] performance characteristics have been verified by the [facility] Microbiology Laboratory. For questions about this culture, contact the Microbiology Laboratory at [phone]. Interpretive data was last revised on 23. Roberto Medina MD LAB MICROBIOLOGY - GEN ERAL ORDERABLES Final Result Performing Organization Address City/[facility]/ZIP Co de Phone Number [facility] Department [place] [address] * TSH (04/10/2024 11:41 PM SUPPLY CHAIN PROCUREMENT MANAGER) Thyroid Stimulating Hormone 3.20 0.30 - 4.20 mcIUnit/mL Blood 04/10/2024 11:4 1 PM SUPPLY CHAIN PROCUREMENT MANAGER 04/10/2024 11:55 PM SUPPLY CHAIN PROCUREMENT MANAGER Olu Collins MD LAB BLOOD ORDERABLES Final Re sult Performing Organization Address City/[facility] Co de Phone Number [facility] Department [place] [address] * Cholesterol, LDL, direct (04/10/2024 11:41 PM SUPPLY CHAIN PROCUREMENT MANAGER) LDL Cholesterol, Direct 41 <=129 mg/dL Comment: [...] on 2017. Blood 04/10/2024 11:4 1 PM SUPPLY CHAIN PROCUREMENT MANAGER 04/10/2024 11:55 PM SUPPLY CHAIN PROCUREMENT MANAGER Narrative [facility] - 04/11/2024 6:09 PM SUPPLY CHAIN PROCUREMENT MANAGER Cholesterol, LDL, direct reflexed based on Elevated Triglyceride (>400) us Nicole Boo MD LAB BLOOD ORDERABLES Final Result Performing Organization Address [facility] de Phone Number [facility] [place] [address] * (ABNORMAL) Hemoglobin A1c (04/10/2024 11:41 PM SUPPLY CHAIN PROCUREMENT MANAGER) Pathologist [facility] Hgb A1C 7.0(H) 4.0 - 5.6 % Estimated Average Glucose 154 mg/dL [facility] Comment: The ADA recommends reporting an estimated Average Glucose (eAG) with all Hemoglobin A1c results using the equation derived from a study of 507 normal and diabetic adults. Minority populations were underrepresented and children were not included. (Diabetes Care 2020; 43(S1): S66-S76). The eAG is not equivalent to a fasting glucose. Blood 04/10/2024 11:4 1 PM SUPPLY CHAIN PROCUREMENT MANAGER 04/10/2024 11:57 PM SUPPLY CHAIN PROCUREMENT MANAGER Saul Engle MD LAB BLOOD ORDERABLES Final Resul t Performing Organization Address [facility] Co de Phone Number [facility] [place] [address] * (ABNORMAL) Lipid panel (04/10/2024 11:41 PM SUPPLY CHAIN PROCUREMENT MANAGER) Pathologist [facility] Cholesterol 145 30 - 199 mg/dL Comment: [...] revised on 2017. Triglycerides 453(H) <=149 mg/dL [facility] Comment: Interpretive Data Ages < [...] revised on 2017. HDL 22(L) >=40 mg/dL [facility] Comment: Interpretive Data Ages < [...] 2017. LDL, calculated See Comment <=129 [facility] Comment: Unable to calculate LDL [...] 3. Chinmay Lew et al. LYDIA Cardiol. 2020 June 17;5(5):540-548. doi: 10.1001/jamacardio.2020.0013 Current Interpretive Data was last revised on 2023. Non-HDL Cholesterol 123 mg/dL [facility] Comment: Interpretive Data Ages < [...] last revised on 2017. Chol/HDL ratio 7 [facility] Blood 04/10/2024 11:4 1 PM SUPPLY CHAIN PROCUREMENT MANAGER 04/10/2024 11:55 PM SUPPLY CHAIN PROCUREMENT MANAGER Nicole Boo MD LAB BLOOD ORDERABLES Final Result [facility] Department [place] [address] * (ABNORMAL) Comprehensive metabolic panel (04/10/2024 11:41 PM SUPPLY CHAIN PROCUREMENT MANAGER) Sodium 141 135 - 145 mmol/L Potassium, pl 3.4 3.3 - 4.9 mmol/L [facility] Chloride 98 97 - 110 mmol/L [facility] CO2 27 22 - 32 mmol/L [facility] Anion gap 16(H) 2 - 15 mmol/L [facility] BUN 45(H) 6 - 25 mg/dL [facility] Creatinine 10.90(H) 0.80 - 1.30 mg/dL [facility] Glucose 240(H) 70 - 199 mg/dL [facility] Comment: Interpretive Data Fasting glucose >/= 126 [...] 2022. Calcium 9.2 8.5 - 10.3 mg/dL [facility] Bilirubin, total 0.2 0.1 - 1.2 mg/dL [facility] Protein, pl 6.5 6.5 - 8.5 g/dL [facility] Albumin 3.1(L) 3.5 - 5.0 g/dL [facility] Alk phos 64 40 - 130 Units/L [facility] ALT 26 7 - 55 Units/L [facility] AST 30 10 - 50 Units/L [facility] Blood 04/10/2024 11:4 1 PM SUPPLY CHAIN PROCUREMENT MANAGER 04/10/2024 11:55 PM SUPPLY CHAIN PROCUREMENT MANAGER Olu Collins MD LAB BLOOD ORDERABLES Final Re sult [facility] Department [place] [address] * (ABNORMAL) ECG 12-LEAD (04/10/2024 11:15 PM SUPPLY CHAIN PROCUREMENT MANAGER) Narrative [facility] - 04/10/2024 11:15 PM SUPPLY CHAIN PROCUREMENT MANAGER Mario Alberto Cornelius MD 04/10/2024 11:17 PM [...] the ED Mario Alberto Cornelius MD 04/10/24 2317 Olu Collins MD ECG ORDERABLES Final Result [facility] * OCT, Retina - OU - Both Eyes (03/09/2024 2:00 PM SUPPLY CHAIN PROCUREMENT MANAGER) Central Macular Thickness OS 227 micrometers CONTINUUM Central Macular Thickness OD 479 micrometers CONTINUUM Anatomical Region Laterality Modality Head Optical Coherenc e Tomography Narrative 03/16/2024 12:53 PM SUPPLY CHAIN PROCUREMENT MANAGER Right Eye Quality was good. Scan locations included subfoveal. Progression has improved. Macular thickness was 479 micrometers. Left Eye Quality was good. Scan locations included subfoveal. Progression has been stable. Macular thickness was 227 micrometers. Notes OD - ERM, CME continues to improve OS - flat Sera Villanueva MD OPHTH TOMOGRAPHY Fi nal Result from Last 3 Months Insurance MEDICARE MEDICARE MEDICARE Advance Directives For more information, please contact: [phone] * Full Code (Latest Code Status on [...] 3:52 PM 06/08/2021 9:56 PM Care Teams Almond Roaster Relationship Specialty Start Date End Date Jeff Strickland MD [address] [address] PCP - General Family Medicine 04/02/18 Chan Nicholas MD [address] [address] Consulting Physician Gastroenterology 11/24/18 Alan Mccall MD [address] [address] Referring Physician Nephrology 11/24/18 Pepito Haro MD PhD [address] [place] [address] Consulting Physician Neurosurgery 12/03/22 Solange Guido MD [address] [facility] [address] [place] [address] Referring Physician Cardiovascular Disease 07/23/23
--- OUTSIDE RECORDS SUMMARY | 2024-05-07 11:03 | XMS_ITS | Encounter Summary ---
Author Organization [facility] Address [facility] [place] [address] Care Team Providers Care Spine Nurse Name Role Phone Deandre Bojorquez MD Unavailable [phone] Jeff Strickland MD Primary Care Provider [phone] Encounter Details Date Type Department Care Team (Late st Contact Info) Description 04/29/2024 Lab Requisition [facility] MAIN LAB [address] [place] [phone] Alan Davenport MD [facility] [place] [address] Social History Tobacco Use Types Packs/Day Years [...] Info) Description 06/16/2024 10:00 AM CDT Appointment [facility] NUCLEAR MEDICINE [address] [place] [phone] Alan Davenport MD [address] DIV OF [facility] [place] [address] 06/16/2024 11:00 AM CDT Appointment [facility] NUCLEAR MEDICINE [address] [place] [phone] Alan Davenport MD [address] DIV OF [facility] [place] [address] 06/16/2024 12:20 PM CDT Appointment [facility] CAT SCAN [facility]1 [place] [address] Alan Davenport MD [address] DIV OF [facility] [place] [address] 06/16/2024 1:00 PM CDT Appointment [facility] ECHO [address] [place] [address] Alan Davenport MD [address] DIV OF [facility] [place] [address] 06/16/2024 2:00 PM CDT Appointment [facility] US [address] [place] [address] Alan Davenport MD [address] DIV OF [facility] [place] [address] 06/16/2024 2:45 PM CDT Appointment [facility] DIAGNOSTIC RAD OP [address] [place] [address] Alan Davenport MD [address] [facility] [place] [address] 06/16/2024 2:50 PM CDT Appointment [facility] LAB OP DRAW STATION [address] [place] [address] Alan Davenport MD [address] [facility] DIV OF [facility] [place] [address] 06/23/2024 1:00 PM CDT Clinical Support [facility] TRANSPLANT [address] [place] [address] 08/04/2024 11:30 AM CDT Appointment [facility] MRI [address] [place] [address] Thomas Mendoza MD [address] [facility] 2L [place] [address] 08/04/2024 1:30 PM CDT Office Visit [facility] - Urology [address] [place] [phone] Thomas Mendoza MD [facility]5 [facility] 2L [place] [phone] documented as of this encounter Procedures Procedure Name Priority Date/Time Associated Diagnosis Comments HOLD HLA SPECIMEN Routine 04/27/2024 1:4 8 PM CDT documented in this encounter Results * HOLD HLA SPECIMEN (04/27/2024 1:48 PM CDT) Hold HLA Specimen 04/29/2024 3:02 PM CDT [facility]) Comment:The Hold HLA specime n has been received into the lab and will be held for 5 years at 4 degrees. Blood BLOOD SPECIMEN / Unknown 04/27/2024 1:48 PM CDT 04/29/2024 1:49 PM CDT Alan Davenport MD LAB - BLOOD BANK ORD ERABLES [facility] [address] [place] [address] documented in this encounter Visit Diagnoses Not on filedocumented in this encounter Care Teams Spine Nurse Relationship Specialty Start Date End Date Jeff Strickland MD [address] [place] [address] PCP - General 03/05/18 [place] [address] [place] [address] Orthopedic Surgery 03/28/17 documented as of this encounter
--- OUTSIDE RECORDS SUMMARY | 2024-05-07 11:03 | XMS_ITS | Clinical Summary ---
Author Organization [facility] Suy[facility] milligan Address [address], [place] [address] Phone Care Team Providers Care Garment Mender Name Role Phone Jeff Strickland MD Primary Care Provider [phone] Allergies No known active allergies Medications Medication [...] tablet 3 11/29/2019 Active Continuous Blood Gluc Can Carrier (FreeStyle Em [place]) device 1 each daily 12/01/2019 Active Continuous Blood Gluc Sensor (FreeStyle Em Sensor System) misc 1 each once every 2 weeks 12/01/2019 Active Lancets (OneTouch Delica Plus [id number]) misc OneTouch Delica Plus Lancet 33 gauge [...] 11/10/2019 Overview (12/17/2019): Kendall Carl 1955 Referring Cut Off Saw Operator: Alan Mccall Dialysis Info: NOD GFR 13 Type: Time: (Not currently on dialysis) days Blood Type: O NEG Body mass index is 37.36 kg/m . ALERTS Broomcorn Grader: needs to establish Past Medical History: Diagnosis Date Arthropathy RA. Dr Strickland manages. CHF (congestive heart failure) 2 yrs ago Systems Spec is Dr. Becerra in [place]. CKD (chronic kidney disease), stage V Community acquired pneumonia 2018 [facility] hospitalized. Diabetes mellitus 20 years. Lantus pen. Esophageal reflux takes med Hypercholesteremia 5-10 yrs meds Hypertension takes meds Hypothyroidism meds 20 years Kidney stones 5-6 years ago had 2 in the same year. Malignancy right kidney 2012 Obstructive sleep apnea 3 years. [facility]. Angela remember doctors name Renal cell [...] file Gets together: Not on file Attends anglican service: Not on file Active member of [...] the impression of this social media marketing analyst that Kendall Carl has several positive factors for Kidney transplant candidacy from a psychosocial perspective. Patient appears to have appropriate knowledge of illness. Patient has sufficient insurance coverage and stable financial situation for post transplant needs. No concerns regarding substance abuse, legal issues, or mental health needs. Patient has adequate support system and appropriate discharge plan. Plan: tin recovery worker to provide supportive services as needed. Patient appears to be a reasonable candidate for transplant from a psychosocial perspective. -Post transplant arrangement forms are needed prior to being listed. -Updated toxicology results needed, per protocol Psychiatric Consult Recommended: No Transplant Equalizer Operator: Joy Tam LCSW RD: 11/09/2019 BMI= [...] use my fitness pal or my food polo coach) - Consume no more than 2000 [...] nephrectomy. 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 A9rSTNS Immunizations Name Administration Dates Next Due Influenza [...] (#1) 2023 9, 04/10/2016, 04/09/2016 Care Teams Garment Mender Relationship Specialty Start Date End Date Jeff Strickland MD [address] [place] [address] PCP - General Internal Medicine 07/15/18
--- OUTSIDE RECORDS SUMMARY | 2024-05-07 11:03 | XMS_ITS | Encounter Summary ---
Author Organization [facility] Address [facility] [place] [address] Care Team Providers Care Bakery And Deli Sales Manager Name Role Phone Deandre Bojorquez MD Unavailable [phone] Jeff Strickland MD Primary Care Provider [phone] Encounter Details Date Type Department Care Team (Late st Contact Info) Description 03/30/2024 Lab Requisition [facility] MAIN LAB [address] [place] [phone] Alan Dav[facility]port MD [facility]1 [facility] OF ABD [place] [address] Social History Tobacco Use Types Packs/Day Years [...] Info) Description 06/16/2024 10:00 AM CDT Appointment [facility] NUCLEAR MEDICINE [address] [place] [phone] Alan Davenport MD [address] DIV OF [facility] [place] [address] 06/16/2024 11:00 AM CDT Appointment [facility] NUCLEAR MEDICINE [address] [place] [phone] Alan Davenport MD [address] DIV OF [facility] [place] [address] 06/16/2024 12:20 PM CDT Appointment [facility] CAT SCAN [facility] [place] [address] Alan Davenport MD [address] DIV OF [facility] [place] [address] 06/16/2024 1:00 PM CDT Appointment [facility] ECHO [address] [place] [address] Alan Davenport MD [address] DIV OF [facility] [place] [address] 06/16/2024 2:00 PM CDT Appointment [facility] US [address] [place] [address] Alan Davenport MD [address] DIV OF [facility] [place] [address] 06/16/2024 2:45 PM CDT Appointment [facility] DIAGNOSTIC RAD OP [address] [place] [address] Alan Davenport MD [address] [facility] [place] [address] 06/16/2024 2:50 PM CDT Appointment [facility] LAB OP DRAW STATION [address] [place] [address] Alan Davenport MD [address] [facility] DIV OF [facility] [place] [address] 06/23/2024 1:00 PM CDT Clinical Support [facility] TRANSPLANT [address] [place] [address] 08/04/2024 11:30 AM CDT Appointment [facility] MRI [address] [place] [address] Thomas Mendoza MD [address] [facility] 2L [place] [address] 08/04/2024 1:30 PM CDT Office Visit [facility] - Urology [address] [place] [phone] Thomas Mendoza MD [address] [place] [address] [address] [place] [address] documented as of this encounter Procedures Procedure Name Priority Date/Time Associated Diagnosis Comments HOLD HLA SPECIMEN Routine 03/25/2024 2:5 1 PM PSYCHOLOGIST EXPERIMENTAL documented in this encounter Results * HOLD HLA SPECIMEN (03/25/2024 2:51 PM PSYCHOLOGIST EXPERIMENTAL) Hold HLA Specimen 03/30/2024 4:01 PM PSYCHOLOGIST EXPERIMENTAL [facility] ([facility]) Comment:The Hold HLA specime n has been received into the lab and will be held for 5 years at 4 degrees. Blood BLOOD SPECIMEN / Unknown 03/25/2024 2:51 PM PSYCHOLOGIST EXPERIMENTAL 03/30/2024 2:51 PM PSYCHOLOGIST EXPERIMENTAL Alan Davenport MD LAB - BLOOD BANK ORD ERABLES [facility] [address] [place] [address], [facility] documented in this encounter Visit Diagnoses Not on filedocumented in this encounter Care Teams Bakery And Deli Sales Manager Relationship Specialty Start Date End Date Jeff Strickland MD [address] [place] [address] PCP - General 03/05/18 [place] [address] [place] [address] Orthopedic Surgery 03/28/17 documented as of this encounter
--- OUTSIDE RECORDS SUMMARY | 2024-05-07 11:03 | XMS_ITS | Encounter Summary ---
Author Organization [facility] Address [facility] [place] [address] Care Team Providers Care Roller Mill Operator Name Role Phone Deandre Bojorquez MD Unavailable [phone] Jeff Strickland MD Primary Care Provider [phone] Encounter Details Date Type Department Care Team (Late st Contact Info) Description 05/29/2023 Lab Requisition [facility] MAIN LAB [address] [place] [phone] Alan Davenport MD [facility] [place] [address] Social History Tobacco Use Types Packs/Day Years [...] Info) Description 06/16/2024 10:00 AM CDT Appointment [facility] NUCLEAR MEDICINE [address] [place] [phone] Alan Davenport MD [address] DIV OF [facility] [place] [address] 06/16/2024 11:00 AM CDT Appointment [facility] NUCLEAR MEDICINE [address] [place] [phone] Alan Davenport MD [address] DIV OF [facility] [place] [address] 06/16/2024 12:20 PM CDT Appointment [facility] CAT SCAN [facility]1 [place] [address] Alan Davenport MD [address] DIV OF [facility] [place] [address] 06/16/2024 1:00 PM CDT Appointment [facility] ECHO [address] [place] [address] Alan Davenport MD [address] DIV OF [facility] [place] [address] 06/16/2024 2:00 PM CDT Appointment [facility] US [address] [place] [address] Alan Davenport MD [address] DIV OF [facility] [place] [address] 06/16/2024 2:45 PM CDT Appointment [facility] DIAGNOSTIC RAD OP [address] [place] [address] Alan Davenport MD [address] [facility] [place] [address] 06/16/2024 2:50 PM CDT Appointment [facility] LAB OP DRAW STATION [address] [place] [address] Alan Davenport MD [address] S [facility] DIV OF [facility] [place] [address] 06/23/2024 1:00 PM CDT Clinical Support [facility] TRANSPLANT [address] [place] [address] 08/04/2024 11:30 AM CDT Appointment [facility] MRI [address] [place] [address] Thomas Mendoza MD [address] [facility] 2L [place] [address] 08/04/2024 1:30 PM CDT Office Visit [facility] - Urology [address] [place] [phone] [facility]5 [facility] 2L [place] [phone] documented as of this encounter Procedures Procedure Name Priority Date/Time Associated Diagnosis Comments HOLD HLA SPECIMEN Routine 05/21/2023 9:2 4 AM CDT documented in this encounter Results * HOLD HLA SPECIMEN (05/21/2023 9:24 AM CDT) Hold HLA Specimen 05/29/2023 10:30 AM CDT [facility] Comment:The Hold HLA specime n has been received into the lab and will be held for 5 years at 4 degrees. Blood BLOOD SPECIMEN / Unknown 05/21/2023 9:24 AM CDT 05/29/2023 9:24 AM CDT Alan Davenport MD LAB - BLOOD BANK ORD ERABLES [facility] [address] [place] [address] documented in this encounter Visit Diagnoses Not on filedocumented in this encounter Care Teams Roller Mill Operator Relationship Specialty Start Date End Date Jeff Strickland MD [address] [place] [address] PCP - General 03/05/18 [place] [address] [place] [address] Orthopedic Surgery 03/28/17 documented as of this encounter
--- OUTSIDE RECORDS SUMMARY | 2024-05-07 11:03 | XMS_ITS ---
Author Organization [facility] Address [address] [place] [address] [place] [address] Care Team Providers Care Coat Baster Name Role Phone DONNIE WOOD MD Primary Care Provider Lance Sergio Trujillo Unavailable [phone] ALLERGIES No Known Allergies REASON FOR VISIT [...] Localized, primary osteoarthritis of the shoulder region (372821119) VITAL SIGNS Blood pressure systolic 112 mm Hg 03/03/19 25 Blood pressure diastolic 62 mm Hg 025 Heart Rate 59 /min 03/03/2024 Respiratory Rate 18 /min 03/03/2024 Height 5 ft 9 in in 03/03/2024 Weight 229 lbs 03/03/2024 BMI 33.81 kg/m2 03/03/2024 Encounters Encounter Location Date Provider Diagnosis [facility] [address] [place] [phone] 03/03/2024 Sergio Stynowick Pain in left knee M25.562 ; Primary osteoarthritis, unspecified shoulder M19.019 ; Other chest pain R07.89 ; Radiculopathy, lumbar region M54.16 ; Other intervertebral disc degeneration, lumbar region M51.36 ; 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 John's, Hope's and Gaenslen's are positive bilaterally. There is [...] and Follow-up: Follow-up Plan doclana wendy:: Yes [facility] Quality 2020: [facility] Documented:: Compliant
--- OUTSIDE RECORDS SUMMARY | 2024-05-07 11:03 | XMS_ITS ---
Author Organization [facility] Address [address] [place] [address] [place] [address] Care Team Providers Care Grain Ii Farmworker Name Role Phone DONNIE WOOD MD Primary Care Provider Robba Sergio Trujillo Unavailable [phone] REASON FOR VISIT BILAT SHOULDER JOINT INJECTION (NEED XRAY - BEING DONE AT [facility]) MEDICATIONS Medication SIG (Take, Route, Frequency, [...] Location Date Provider Diagnosis [facility] [address] [place] [phone] 03/08/2024 Sergio Rivera Primary osteoarthritis, unspecified shoulder [...] patient's typical axial low back pain. John's, Sabine's and Gaenslen's are positive bilaterally. There is [...] Plan documen wendy:: Yes [facility] Quality 2020: [facility] Documented:: Compliant
--- OUTSIDE RECORDS SUMMARY | 2024-05-07 11:03 | XMS_ITS | Patient Health Record ---
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 Problem Chronic pain syndrome (G89.4) Active confirmed Chronic joan n syndrome (732833944) Problem Primary osteoarthritis, 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) Active confirmed Localized, primary osteoarthritis of the shoulder region (269328385) Problem Pain in left hip (M25.552) Active confirmed Pain of left hi p joint (finding) (469948563701013) Problem Spondylosis without myelopathy or radiculopathy, lumbar region (M47.816) Active confirmed Lumbosacral spondylosis without myelopathy (49868893) Problem Other intervertebral disc degeneration, lumbar region (M51.36) Active confirmed Degeneration of lumbar intervertebral disc (77704475) Problem Radiculopathy, lumbar region (M54.16) Active confirmed Lumbar radiculopathy (031610827) Problem Radiculopathy, lumbosacral region (M54.17) Active confirmed Lumbosacral radiculopathy (5829892) Problem Osseous stenosis of neural canal of lumbar region (M99.33) Active confirmed Spinal stenosis of lumbar region (98030949) Problem ferry terminal agent (current) use of anticoagulants (Z79.01) Active confirmed Long-term curre nt use of anticoagulant (470010609) Problem Other intervertebral disc degeneration, lumbar region [...] Location Date Provider Diagnosis [facility] [address] [place] [phone] 05/08/2023 Sergio Stynowick Radiculopathy, lumba r region M54.16 ; Other intervertebral disc degeneration, lumbar region M51.36 ; 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 ; Spondylosis without myelopathy or radiculopathy, lumbar region M47.816 and ferry terminal agent (current) use of anticoagulants Z79.01 [facility] [address] [place] [address] 09/29/2023 Sergio Stynowick Radiculopathy, lumba r region M54.16 ; Other chest pain R07.89 ; Other intervertebral disc degeneration, lumbar region M51.36 ; 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 ; Spondylosis without myelopathy or radiculopathy, lumbar region M47.816 and ferry terminal agent (current) use of anticoagulants Z79.01 [facility] [address] [place] [address] 01/12/2024 Sergio Stynowick Radiculopathy, lumba r region M54.16 ; Radiculopathy, lumbosacral region M54.17 ; Other chest pain R07.89 ; Other intervertebral disc degeneration, lumbar region M51.36 ; 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562 ; Radiculopathy, lumbar region M54.16 ; Other intervertebral disc degeneration, lumbar region M51.36 ; 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 ; Spondylosis without myelopathy or radiculopathy, lumbar region M47.816 and residential (current) use of anticoagulants Z79.01 [facility] [address] [place] [address] 03/03/2024 Sergio Stynowick Pain in left knee M25.562 ; Primary osteoarthritis, unspecified shoulder M19.019 ; Other chest pain R07.89 ; Radiculopathy, lumbar region M54.16 ; Other intervertebral disc degeneration, lumbar region M51.36 ; 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 ; Spondylosis without myelopathy or radiculopathy, lumbar region M47.816 ; ferry terminal agent (current) use of anticoagulants Z79.01 ; Pain in right shoulder M25.511 and Pain in left shoulder M25.512 [facility] [address] [place] [address] 03/08/2024 Sergio Stynowick Primary osteoarthritis, unspecified shoulder M19.019 [facility] [address] [place] [phone] 03/31/2024 Sergio Stynowick ASSESSMENTS Encounter Date Diagnosis [...] of lumbar region (ICD-10 - M99.33) 05/08/2023 residential (current) use of anticoagulants (ICD-10 - Z79.01) 09/29/2023 Spondylosis without myelopathy or radiculopathy, lumbar region (ICD-10 - M47.816) 09/29/2023 residential (current) use of anticoagulants (ICD-10 - Z79.01) 01/12/2024 Spondylosis without myelopathy or radiculopathy, lumbar region (ICD-10 - M47.816) 02/03/2024 Spondylosis without myelopathy or radiculopathy, lumbar region (ICD-10 - M47.816) 03/03/2024 Osseous stenosis of neural canal of lumbar region (ICD-10 - M99.33) 01/12/2024 ferry terminal agent (current) use of anticoagulants (ICD-10 - Z79.01) The patient was instructed to discontinue aspirin for 6 days prior to the procedure. I made the patient aware that he will be at an increased risk for a thromboembolic event during this time and he is willing to accept this risk. The patient was instructed to notify his primary care physician and/or mandarin teacher to obtain clearance prior to discontinuing this medication. 02/03/2024 ferry terminal agent (current) use of anticoagulants (ICD-10 - Z79.01) [...] Coverage End Date [employer] MEDICARE [address] [place] [address] [id number] LAISHA, GRACE Self - patient is the insured MEDICAL (GENERAL) HISTORY Medical History History ICD Code Hypertension Hypothyroidism Diabetes type 2 Gastroesophageal reflux disease (GERD) Renal cell cancer Chronic kidney disease stage 4 Sleep apnea CHF Surgical History Surgery Date(Month/Year) Right total knee arthroplasty 08/2015 Cholecystectomy Hernia repair 2019 Cardiac stent 07/2020
--- OUTSIDE RECORDS SUMMARY | 2024-05-07 11:04 | XMS_ITS | Clinical Summary ---
Author Organization [facility] Address [facility] [place] [address] Care Team Providers Care Hand Pleater Name Role Phone Jeff Strickland MD Primary Care Provider [phone] Allergies Active Allergy Reactions Criticality Noted Date [...] by mouth nightly at bedtime. Active Multiple Vitamins-Davis als (PRESERVISION AREDS 2 OR) Take 1 [...] drink = 0.6 oz pur e alcohol) [facility] Utilities Answer Date Recorded In the past 12 months has th e electric, gas, oil, or water [employer] threatened to shut off services in your [...] place to sleep or slept in a nursing home (including now)? No 05/02/2023 Sex and Gender Information Value Date Recorded Sex Assigned at Not on file Legal Sex Male 10:10 AM EXERCISE MANAGER Gender Identity Not on file Sexual [...] 1955 Zoster Vaccines (1 of 2) 01/19/2006 Annual Medicare Wellness Visit 01/19/2021 Pneumococcal Vaccine: 65+ Years (2 of 2 - PPSV23 or PCV20) 08/09/2021 08/09/2020 COVID-19 Vaccine ( - season) 2023 05/05/2020, 04/20/2020, 04/15/2020, Additional history exists Influenza Adult (#1) 2023 05/03/2023, 10/29/2020, 01/17/2020, Additional history exists DTaP, Tdap and Td Vaccines (3 - Td or Tdap) 04/10/2026 04/10/2016, 04/09/2016 RSV Immunization or 60+ Years (1 - 1-dose 75+ series) 01/19/2031 Hepatitis C Completed 03/25/2023, 03/25/2023 Meningococcal B [...] discharge from hospital Lifestyle No Alice Rizzo, [facility] Insurance [employer] Advance Directives * Full Code (Latest Code Status on File) Date Activated Date Inactivated Comments 05/02/2023 12:46 AM 05/03/2023 12:26 PM Care Teams Hand Pleater Relationship Specialty Start Date End Date Jeff Strickland MD [address] [facility] [address] [place] [address] PCP - General FAMILY PRACTICE 02/22/23
[2024-05-07 11:18] LABS: Basophils Percent Auto 0.2 % (0.2-1.2); Eosinophils Absolute Auto 0.1 K/mm3 (0-0.3); Eosinophils Percent Auto 0.9 % (0-4.4); Hematocrit 25.6 % (42.0-52.0); Hemoglobin 8.2 g/dL (14.0-18.0); Immature Granulocyte Absolute 0.17 K/mm3 (0.00-0.031); Immature Granulocyte Percent A 2.6 % (0-0.5); Lymphocytes Absolute Auto 1.11 K/mm3 (0.9-3.2); Lymphocytes Percent Auto 16.7 % (18.3-44.2); Mean Corpuscular Hemoglobin 30.9 pg (26-34); Mean Corpuscular Volume 96.6 fl (80-100); Mean Platelet Volume 10.7 fl (7.4-10.4); Monocytes Absolute Auto 0.8 K/mm3 (0.1-0.6); Monocytes Percent Auto 11.5 % (2.6-8.5); Neutrophils Absolute Auto 4.5 K/mm3 (1.3-6.7); Neutrophils Percent Auto 68.1 % (45.5-73.1); Platelet Count Result 149 k/mm3 (150-375); Red Blood Count 2.65 M/mm3 (4.6-6.20); Red Cell Distribution Width 16.1 % (11.5-14.5); White Blood Count 6.6 K/mm3 (4.5-10.0)
[2024-05-07 11:44] LABS: Alanine Aminotransferase 17 U/L (6-50); Alkaline Phosphatase 44 U/L (38-126); Anion Gap 10 mmol/L (4-12); Aspartate Amino Transferase 30 U/L (17-59); Bilirubin,Total 0.2 mg/dL (0.2-1.3); Blood Urea Nitrogen 33 mg/dL (9-20); Calcium 7.4 mg/dL (8.4-10.2); Carbon Dioxide 28 mmol/L (22-30); Chloride 96 mmol/L (98-107); Estimated CRCL calculation 9 ml/min; Estimated Glomerular Filt Rate 5; Glucose 78 mg/dL (65-110); Lipase 74 U/L (23-300); Potassium 3.4 mmol/L (3.4-5.0); Sodium 134 mmol/L (137-145)
--- NOTE | 2024-05-07 12:55 | PC.NURSE ---
Pt refusing IV Zofran at this time. Pt states he is not nauseous and has not been nauseous.
--- NOTE | 2024-05-07 12:56 | PC.NURSE ---
Pt gets peritoneal dialysis nightly and states he mades very little urine, if any at all.
--- OUTSIDE RECORDS SUMMARY | 2024-05-07 13:09 | XMS_ITS | Encounter Summary ---
Author Organization [facility] Address [address] [place] [address] Care Team Providers Care Alterations Supervisor Name Role Phone Deandre Bojorquez MD Unavailable [phone] Jeff Strickland MD Primary Care Provider [phone] Encounter Details Date Type Department Care Team (Late st Contact Info) Description 02/04/2024 Lab Requisition [facility] MAIN LAB [address] [place] [phone] Alan Davenport MD [facility] OF ABD [place] [address] Social History Tobacco Use Types Packs/Day Years [...] Info) Description 06/16/2024 10:00 AM CDT Appointment [facility] NUCLEAR MEDICINE [address] [place] [phone] Alan Davenport MD [address] DIV OF [facility] [place] [address] 06/16/2024 11:00 AM CDT Appointment [facility] NUCLEAR MEDICINE [address] [place] [phone] Alan Davenport MD [address] DIV OF [facility] [place] [address] 06/16/2024 12:20 PM CDT Appointment [facility] CAT SCAN [facility] [place] [address] Alan Davenport MD [address] DIV OF [facility] [place] [address] 06/16/2024 1:00 PM CDT Appointment [facility] ECHO [address] [place] [address] Alan Davenport MD [address] DIV OF [facility] [place] [address] 06/16/2024 2:00 PM CDT Appointment [facility] US [address] [place] [address] Alan Davenport MD [address] DIV OF [facility] [place] [address] 06/16/2024 2:45 PM CDT Appointment [facility] DIAGNOSTIC RAD OP [address] [place] [address] Alan Davenport MD [address] [facility] [place] [address] 06/16/2024 2:50 PM CDT Appointment [facility] LAB OP DRAW STATION [address] [place] [address] Alan Davenport MD [address] [facility] DIV OF [facility] [place] [address] 06/23/2024 1:00 PM CDT Clinical Support [facility] TRANSPLANT [address] [place] [address] 08/04/2024 11:30 AM CDT Appointment [facility] MRI [facility] [place] [address] Thomas Mendoza MD [address] [facility] 2L [place] [address] 08/04/2024 1:30 PM CDT Office Visit [facility] - Urology [address] [place] [phone] Thomas Mendoza MD [address] [place] [address] 2L [place] [address] documented as of this encounter Procedures Procedure Name Priority Date/Time Associated Diagnosis Comments HOLD HLA SPECIMEN Routine 01/27/2024 3:2 3 PM DAIRY PROCESSING EQUIPMENT OPERATOR documented in this encounter Results * HOLD HLA SPECIMEN (01/27/2024 3:23 PM DAIRY PROCESSING EQUIPMENT OPERATOR) Hold HLA Specimen 02/04/2024 4:31 PM DAIRY PROCESSING EQUIPMENT OPERATOR [facility] ([facility]) Comment:The Hold HLA specime n has been received into the lab and will be held for 5 years at 4 degrees. Blood BLOOD SPECIMEN / Unknown 01/27/2024 3:23 PM DAIRY PROCESSING EQUIPMENT OPERATOR 02/04/2024 3:23 PM DAIRY PROCESSING EQUIPMENT OPERATOR Alan Davenport MD LAB - BLOOD BANK ORD ERABLES [facility] [address] [place] [address], [facility] documented in this encounter Visit Diagnoses Not on filedocumented in this encounter Care Teams Alterations Supervisor Relationship Specialty Start Date End Date Jeff Strickland MD [address] [place] [address] PCP - General 03/05/18 [place] [address] [place] [address] Orthopedic Surgery 03/28/17 documented as of this encounter
--- OUTSIDE RECORDS SUMMARY | 2024-05-07 13:10 | XMS_ITS | Encounter Summary ---
Author Organization [facility] Address [facility] [place] [address] Care Team Providers Care Monument Installer Name Role Phone Deandre Bojorquez MD Unavailable [phone] Jeff Strickland MD Primary Care Provider [phone] Encounter Details Date Type Department Care Team (Late st Contact Info) Description 07/31/2023 Lab Requisition [facility] MAIN LAB [address] [place] [phone] Alan Davenport MD [facility]1 [facility] [place] [address] Social History Tobacco Use Types Packs/Day Years [...] Info) Description 06/16/2024 10:00 AM CDT Appointment [facility] NUCLEAR MEDICINE [address] [place] [phone] Alan Davenport MD [address] DIV OF [facility] [place] [address] 06/16/2024 11:00 AM CDT Appointment [facility] NUCLEAR MEDICINE [address] [place] [phone] Alan Davenport MD [address] DIV OF [facility] [place] [address] 06/16/2024 12:20 PM CDT Appointment [facility] CAT SCAN [facility]1 [place] [address] Alan Davenport MD [address] DIV OF [facility] [place] [address] 06/16/2024 1:00 PM CDT Appointment [facility] ECHO [address] [place] [address] Alan Davenport MD [address] DIV OF [facility] [place] [address] 06/16/2024 2:00 PM CDT Appointment [facility] US [address] [place] [address] Alan Davenport MD [address] DIV OF [facility] [place] [address] 06/16/2024 2:45 PM CDT Appointment [facility] DIAGNOSTIC RAD OP [address] [place] [address] Alan Davenport MD [address] [facility] DIV OF [facility] [place] [address] 06/16/2024 2:50 PM CDT Appointment [facility] LAB OP DRAW STATION [address] [place] [address] Alan Davenport MD [address] [facility] DIV OF [facility] [place] [address] 06/23/2024 1:00 PM CDT Clinical Support [facility] TRANSPLANT [address] [place] [address] 08/04/2024 11:30 AM CDT Appointment [facility] MRI [facility]1 [place] [address] Thomas Mendoza MD [address] [facility] 2L [place] [address] 08/04/2024 1:30 PM CDT Office Visit [facility] - Urology [address] [place] [phone] Thomas Mendoza MD [facility] 2L [place] [address] documented as of this encounter Procedures Procedure Name Priority Date/Time Associated Diagnosis Comments HOLD HLA SPECIMEN Routine 07/23/2023 2:0 5 PM CDT documented in this encounter Results * HOLD HLA SPECIMEN (07/23/2023 2:05 PM CDT) Hold HLA Specimen 07/31/2023 3:32 PM CDT [facility] Comment:The Hold HLA specime n has been received into the lab and will be held for 5 years at 4 degrees. Blood BLOOD SPECIMEN / Unknown 07/23/2023 2:05 PM CDT 07/31/2023 2:06 PM CDT Alan Davenport MD LAB - BLOOD BANK ORD ERABLES [facility] [address] [place] [address], [facility] documented in this encounter Visit Diagnoses Not on filedocumented in this encounter Care Teams Monument Installer Relationship Specialty Start Date End Date Jeff [place] MD [address] [place] [address] PCP - General 03/05/18 [place] [address] [place] [address] Orthopedic Surgery 03/28/17 documented as of this encounter
--- OUTSIDE RECORDS SUMMARY | 2024-05-07 13:10 | XMS_ITS ---
Author Organization [facility] Address Formerly [facility] [place] [address] Care Team Providers Care School Counsellor Name Role Phone Jeff Strickland MD Primary Care Provider Chan Nicholas MD Unavailable [phone] Alan Mccall MD Unavailable [phone] Pepito Haro MD PhD Unavailable [phone] Solange Guido MD Unavailable Active Problems Problem [...] warrant further PDT. - Patient returned to [facility] for ongoing care and follow up Assessment & Plan (03/09/2024 6:25 PM NOVELTY MAKER): Vision OD trends mild improvement, though still [...] We discussed that genetic results would not slip box changer. Given we have exhausted available treatment without VA improvement, and CME is improving spontaneously, patient can follow in [facility]. Assessment & Plan (10/08/2023 2:51 PM CDT): [...] weeks and have patient return to [facility] retina in 4 weeks for repeat [...] 03/26/2021 Assessment & Plan (03/26/2021 1:17 PM NOVELTY MAKER): Enlarged mild sella turcica on a routine [...] units Assessment & Plan (03/26/2021 1:17 PM NOVELTY MAKER): Chronic, uncontrolled, improving A1c today 7.7 % [...] WNL Assessment & Plan (03/26/2021 1:16 PM NOVELTY MAKER): Pt currently on Levothyroxine 112 mcg oral [...] 11/18/2018 Assessment & Plan (01/21/2019 2:02 PM NOVELTY MAKER): Symptomatic. Will request for esophageal manometry. Continue [...] well Assessment & Plan (03/26/2021 1:16 PM NOVELTY MAKER): On statin therapy Tolerating well Last lipid [...] nephrectomy. 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 [id number] Current Treatment and Therapy Plans No current [...] were not included. Kendall Carl 1955 Referring Field Tax Auditor: Alan Mccall Dialysis Info: NOD GFR 13 Type: Time: (Not currently on dialysis) days Blood Type: O NEG Body mass index is 37.36 kg/m . ALERTS Calculus Teacher: needs to establish Past Medical History: Diagnosis Date Arthropathy RA. Dr Strickland manages. CHF (congestive heart failure) 2 yrs ago Title I Director is Dr. Becerra in [place]. CKD (chronic kidney disease), stage V Community acquired pneumonia 2018 [facility] hospitalized. Diabetes mellitus 20 years. Lantus pen. Esophageal reflux takes med Hypercholesteremia 5-10 yrs meds Hypertension takes meds Hypothyroidism meds 20 years Kidney stones 5-6 years ago had 2 in the same year. Malignancy right kidney 2012 Obstructive sleep apnea 3 years. [facility]. Angela remember doctors name Renal cell [...] is the impression of this social media content manager that Kendall Carl has several positive factors for Kidney transplant candidacy from a psychosocial perspective. Patient appears to have appropriate knowledge of illness. Patient has sufficient insurance coverage and stable financial situation for post transplant needs. No concerns regarding substance abuse, legal issues, or mental health needs. Patient has adequate support system and appropriate discharge plan. Plan: social worker to provide supportive services as needed. Patient appears to be a reasonable candidate for transplant from a psychosocial perspective. -Post transplant arrangement forms are needed prior to being listed. -Updated toxicology results needed, per protocol Psychiatric Consult Recommended: No Transplant Crate Tier: Joy Tam LCSW RD: 11/09/2019 BMI= 36.2, [...] use my fitness pal or my food hitting coach) - Consume no more than 2000 calories a day E-mailed pt's a 2000 calorie, CKD meal plan. Items Still Pending: Clinic, colonoscopy Acute pain of left shoulder 01/25/2019 03/25/2023 Non-cardiac chest pain 11/18/201803/25 Assessment & Plan (01/21/2019 2:02 PM NOVELTY MAKER): The pain is persistent. The patient described [...] has had extensive cardiac workup by the mid level net developer including coronary angiogram. He has chest pain [...]
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
--- OUTSIDE RECORDS SUMMARY | 2024-05-07 13:11 | XMS_ITS | Encounter Summary ---
Author Organization [facility] Address [facility] [place] [address] Care Team Providers Care Knitting Machine Operator Helper Name Role Phone Deandre Bojorquez MD Unavailable [phone] Jeff Strickland MD Primary Care Provider [phone] Encounter Details Date Type Department Care Team (Late st Contact Info) Description 11/21/2023 Lab Requisition [facility] [address] [place] [phone] Alan Davenport MD [facility]1 [facility] [place] [address] Social History Tobacco Use Types Packs/Day Years [...] Info) Description 06/16/2024 10:00 AM CDT Appointment [facility] NUCLEAR MEDICINE [address] [place] [phone] Alan Davenport MD [address] DIV OF [facility] [place] [address] 06/16/2024 11:00 AM CDT Appointment [facility] NUCLEAR MEDICINE [address] [place] [phone] Alan Davenport MD [address] DIV OF [facility] [place] [address] 06/16/2024 12:20 PM CDT Appointment [facility] CAT SCAN [facility] [place] [address] Alan Davenport MD [address] DIV OF [facility] [place] [address] 06/16/2024 1:00 PM CDT Appointment [facility] ECHO [address] [place] [address] Alan Davenport MD [address] DIV OF [facility] [place] [address] 06/16/2024 2:00 PM CDT Appointment [facility] US [address] [place] [address] Alan Davenport MD [address] DIV OF [facility] [place] [address] 06/16/2024 2:45 PM CDT Appointment [facility] DIAGNOSTIC RAD OP [address] [place] [address] Alan Davenport MD [address] [facility] [place] [address] 06/16/2024 2:50 PM CDT Appointment [facility] OP DRAW STATION [address] [place] [address] Alan Davenport MD [address] [facility] DIV OF [facility] [place] [address] 06/23/2024 1:00 PM CDT Clinical Support [facility] TRANSPLANT [address] [place] [address] 08/04/2024 11:30 AM CDT Appointment [facility] MRI [address] [place] [address] Thomas Mendoza MD [address] [place] [address] 08/04/2024 1:30 PM CDT Office Visit [facility] - Urology [address] [place] [phone] Thomas Mendoza MD [facility] [place] [phone] documented as of this encounter Procedures Procedure Name Priority Date/Time Associated Diagnosis Comments HOLD HLA SPECIMEN Routine 11/18/2023 12: 16 PM CDT documented in this encounter Results * HOLD HLA SPECIMEN (11/18/2023 12:16 PM CDT) Hold HLA Specimen 11/21/2023 1:31 PM CDT [facility] Comment:The Hold HLA specime n has been received into the lab and will be held for 5 years at 4 degrees. Blood BLOOD SPECIMEN / Unknown 11/18/2023 12:16 PM CDT 11/21/2023 12:17 PM CDT Alan Davenport MD LAB - BLOOD BANK ORD ERABLES [facility] [address] documented in this encounter Visit Diagnoses Not on filedocumented in this encounter Care Teams Knitting Machine Operator Helper Relationship Specialty Start Date End Date Jeff Strickland MD [address] [place] [address] PCP - General 03/05/18 [place] [address] [place] [address] Orthopedic Surgery 03/28/17 documented as of this encounter
--- OUTSIDE RECORDS SUMMARY | 2024-05-07 13:11 | XMS_ITS | Encounter Summary ---
Author Organization [facility] Address [facility] [place] [address] Care Team Providers Care Corporate Lawyer Name Role Phone Deandre Bojorquez MD Unavailable [phone] Jeff Strickland MD Primary Care Provider Encounter Details Date Type Department Care Team (Late st Contact Info) Description 10/28/2023 Lab Requisition [facility] [address] [place] [phone] Alan Davenport MD [facility] OF [place] [address] Social History Tobacco Use Types Packs/Day Years [...] 06/16/2024 10:00 AM CDT Appointment [facility] NUCLEAR MEDICINE [address] [place] [phone] Alan Davenport MD [address] DIV OF [facility] [place] [address] 06/16/2024 11:00 AM CDT Appointment [facility] NUCLEAR MEDICINE [address] [place] [phone] Alan Davenport MD [address] DIV OF [facility] [place] [address] 06/16/2024 12:20 PM CDT Appointment [facility] CAT SCAN [facility] [place] [address] Alan Davenport MD [address] DIV OF [facility] [place] [address] 06/16/2024 1:00 PM CDT Appointment [facility] ECHO [address] [place] [address] Alan Davenport MD [address] DIV OF [facility] [place] [address] 06/16/2024 2:00 PM CDT Appointment [facility] US [address] [place] [address] Alan Davenport MD [address] DIV OF [facility] [place] [address] 06/16/2024 2:45 PM CDT Appointment [facility] DIAGNOSTIC RAD OP [address] [place] [address] Alan Davenport MD [address] [facility] [place] [address] 06/16/2024 2:50 PM CDT Appointment [facility] LAB OP DRAW STATION [address] [place] [address] Alan Davenport MD [address] DIV [facility] [place] [address] 06/23/2024 1:00 PM CDT Clinical Support [facility] TRANSPLANT [address] [place] [address] 08/04/2024 11:30 AM CDT Appointment [facility] MRI [facility]1 [place] [address] Thomas Mendoza MD [address] [facility] 2L DIV [place]OLOG[place] [address] 08/04/2024 1:30 PM CDT Office Visit [facility] - Urology [address] [place] [phone] Thomas Mendoza MD [facility]5 [facility] 2L DIV [place]OLOG[place] [address] documented as of this encounter Procedures Procedure [...] BANK ORD ERABLES [facility] [address] [place] [address] documented in this encounter Visit Diagnoses Not on filedocumented in this encounter Care Teams Corporate Lawyer Relationship Specialty Start Date End Date Jeff Strickland MD [address] [place] [address] PCP - General 03/05/18 [place] [address] [place] [address] Orthopedic Surgery 03/28/17 documented as of this encounter
--- OUTSIDE RECORDS SUMMARY | 2024-05-07 13:11 | XMS_ITS ---
Author Organization [facility] Address [address] [place] [id number] Care Team Providers Care Trucker Name Role Phone Jeff Strickland MD Primary [...] GLUCOSE DEVICE Routine 04/13/2024 1 1:30 AM EMERGENCY VEHICLE OPERATOR POCT GLUCOSE DEVICE Routine 04/13/2024 8 :00 AM EMERGENCY VEHICLE OPERATOR EGFR Routine 04/13/2024 5:06 AM EMERGENCY VEHICLE OPERATOR CBC WITHOUT DIFFERENTIAL Routine 04/13/2024 5:06 AM EMERGENCY VEHICLE OPERATOR COMPREHENSIVE METABOLIC PANEL Routine 04/13/2024 5:06 AM EMERGENCY VEHICLE OPERATOR POCT GLUCOSE DEVICE Routine 04/13/2024 1 :57 AM EMERGENCY VEHICLE OPERATOR POCT GLUCOSE DEVICE Routine 04/12/2024 8 :29 PM EMERGENCY VEHICLE OPERATOR POCT GLUCOSE DEVICE Routine 04/12/2024 5 :29 PM EMERGENCY VEHICLE OPERATOR POCT GLUCOSE DEVICE Routine 04/12/2024 1 1:32 AM EMERGENCY VEHICLE OPERATOR POCT GLUCOSE DEVICE Routine 04/12/2024 7 :54 AM EMERGENCY VEHICLE OPERATOR EGFR Routine 04/12/2024 6:00 AM EMERGENCY VEHICLE OPERATOR CBC WITHOUT DIFFERENTIAL Routine 04/12/2024 6:00 AM EMERGENCY VEHICLE OPERATOR COMPREHENSIVE METABOLIC PANEL Routine 04/12/2024 6:00 AM EMERGENCY VEHICLE OPERATOR POCT GLUCOSE DEVICE Routine 04/12/2024 4 :35 AM EMERGENCY VEHICLE OPERATOR POCT GLUCOSE DEVICE Routine 04/12/2024 1 2:34 AM EMERGENCY VEHICLE OPERATOR POCT GLUCOSE DEVICE Routine 04/11/2024 9 :13 PM EMERGENCY VEHICLE OPERATOR POCT GLUCOSE DEVICE Routine 04/11/2024 6 :04 PM EMERGENCY VEHICLE OPERATOR POCT GLUCOSE DEVICE Routine 04/11/2024 2 :25 PM EMERGENCY VEHICLE OPERATOR POCT GLUCOSE DEVICE Routine 04/11/2024 1 2:10 PM EMERGENCY VEHICLE OPERATOR INFECTION PREVENTION VRE CULTURE Routine 04/11/2024 8:41 AM EMERGENCY VEHICLE OPERATOR H. PYLORI ANTIGEN, STOOL Routine 04/11/2024 8:41 AM EMERGENCY VEHICLE OPERATOR C. DIFFICILE TESTING Routine 04/11/2024 8:41 AM EMERGENCY VEHICLE OPERATOR STOOL CULTURE Routine 04/11/2024 8:41 AM EMERGENCY VEHICLE OPERATOR POCT GLUCOSE DEVICE Routine 04/11/2024 8 :30 AM EMERGENCY VEHICLE OPERATOR TROPONIN I HIGH-SENSITIVITY 6-HOUR Timed 04/11/2024 4:47 AM EMERGENCY VEHICLE OPERATOR CELL DIFFERENTIAL, BODY FLUID Routine 04/11/2024 3:51 AM EMERGENCY VEHICLE OPERATOR CELL COUNT W/REFLEX DIFFERENTIAL, BODY FLUID Routine 04/11/2024 3:51 AM EMERGENCY VEHICLE OPERATOR AEROBIC AND ANAEROBIC CULTURE AND GRAM STAIN Routine 04/11/2024 3:51 AM EMERGENCY VEHICLE OPERATOR POCT GLUCOSE DEVICE Routine 04/11/2024 3 :43 AM EMERGENCY VEHICLE OPERATOR SEPSIS LACTATE WITH REFLEX Timed 04/11/2024 3:41 AM EMERGENCY VEHICLE OPERATOR TROPONIN I HIGH-SENSITIVITY 4-HOUR Timed 04/11/2024 3:41 AM EMERGENCY VEHICLE OPERATOR CT ABDOMEN PELVIS W CONTRAST ED 04/11/2024 2:21 AM EMERGENCY VEHICLE OPERATOR ECG 12-LEAD Routine 04/11/2024 1:52 AM EMERGENCY VEHICLE OPERATOR TROPONIN I HIGH-SENSITIVITY 2-HOUR Timed 04/11/2024 1:48 AM EMERGENCY VEHICLE OPERATOR RI CRITICAL CARE ILL/INJURED PATIENT INIT 30-74 MIN Routine 04/11/2024 1:29 AM EMERGENCY VEHICLE OPERATOR XR CHEST 1 VIEW ED 04/11/2024 1:01 AM EMERGENCY VEHICLE OPERATOR SEPSIS LACTATE WITH REFLEX STAT 04/11/2024 12:17 AM EMERGENCY VEHICLE OPERATOR HEMOGLOBIN A1C STAT 04/10/2024 11:41 PM EMERGENCY VEHICLE OPERATOR CHOLESTEROL, LDL, DIRECT STAT 04/10/2024 11:41 PM EMERGENCY VEHICLE OPERATOR LIPID PANEL STAT 04/10/2024 11:41 PM EMERGENCY VEHICLE OPERATOR CRITICAL RESULT CALLBACK CARDIO CHEM STAT 04/10/2024 11:41 PM EMERGENCY VEHICLE OPERATOR EGFR STAT 04/10/2024 11:41 PM EMERGENCY VEHICLE OPERATOR TSH STAT 04/10/2024 11:41 PM EMERGENCY VEHICLE OPERATOR DIFFERENTIAL AUTO STAT 04/10/2024 11: 41 PM EMERGENCY VEHICLE OPERATOR TROPONIN I HIGH-SENSITIVITY SERIES (BASELINE, 2HR, 4HR, 6HR) STAT 04/10/2024 11:41 PM EMERGENCY VEHICLE OPERATOR COMPREHENSIVE METABOLIC PANEL STAT 04/10/2024 11:41 PM EMERGENCY VEHICLE OPERATOR CBC WITH AUTO DIFFERENTIAL STAT 04/10/2024 11:41 PM EMERGENCY VEHICLE OPERATOR RESPIRATORY PATHOGEN PANEL STAT 04/10/2024 11:41 PM EMERGENCY VEHICLE OPERATOR BLOOD CULTURE STAT 04/10/2024 11:41 PM EMERGENCY VEHICLE OPERATOR BLOOD CULTURE Routine 04/10/2024 11:41 PM EMERGENCY VEHICLE OPERATOR ECG 12-LEAD STAT 04/10/2024 11:15 PM EMERGENCY VEHICLE OPERATOR OCT, RETINA - OU - BOTH EYES Routine 03/09/2024 2:00 PM EMERGENCY VEHICLE OPERATOR Cystoid macular edema of both eyes from [...] 300 + = 14 units Active FA-vit Eklku-H-khet-vitam in D3 (Dialyvite 800-Ultra D) 0.8-2,000 mg-unit [...] a day with meals 2024 Discontinued vit C,M-Bw-lgowa-lutei n-zeaxan 250-90-40-1 mg capsule Take 1 capsule [...] warrant further PDT. - Patient returned to [facility] for ongoing care and follow up Assessment & Plan (03/09/2024 6:25 PM EMERGENCY VEHICLE OPERATOR): Vision OD trends mild improvement, though [...] discussed that genetic results would not exchange clerk. Given we have exhausted available treatment [...] 03/26/2021 Assessment & Plan (03/26/2021 1:17 PM EMERGENCY VEHICLE OPERATOR): Enlarged mild sella turcica on a [...] units Assessment & Plan (03/26/2021 1:17 PM EMERGENCY VEHICLE OPERATOR): Chronic, uncontrolled, improving A1c today 7.7 [...] WNL Assessment & Plan (03/26/2021 1:16 PM EMERGENCY VEHICLE OPERATOR): Pt currently on Levothyroxine 112 mcg [...] 11/18/2018 Assessment & Plan (01/21/2019 2:02 PM EMERGENCY VEHICLE OPERATOR): Symptomatic. Will request for esophageal manometry. [...] well Assessment & Plan (03/26/2021 1:16 PM EMERGENCY VEHICLE OPERATOR): On statin therapy Tolerating well Last [...] nephrectomy. 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 [id number] Immunizations Immunization Administration Dates Next Due Hep [...] = 0.6 oz pur e alcohol) rarely [employer] Utilities Answer Date Recorded In the past 12 months has [employer], gas, oil, or water [employer] threatened to shut off services in your [...] often do you attend chur ch or latter-day services? Never 03/25/2023 Do you belong to any clubs o r organizations such as nondenominational groups, unions, fraternal or athletic groups, or [...] on file Legal Sex Male 2:23 AM EMERGENCY VEHICLE OPERATOR Gender Identity Not on file Sexual Orientation Not on file Occupation Industry Job Start Date Job End Date Retired Not on file Not on file Not on file Last Filed Vital Signs Vital Sign Reading Time Taken Comments Blood Pressure 154/73 04/13/2024 11:52 AM EMERGENCY VEHICLE OPERATOR Pulse 67 04/13/2024 8:33 AM EMERGENCY VEHICLE OPERATOR Temperature 36.7 C (98.1 F) 04/13/2024 8:33 AM EMERGENCY VEHICLE OPERATOR Respiratory Rate 16 04/13/2024 8:33 AM EMERGENCY VEHICLE OPERATOR Oxygen Saturation 98% 04/13/2024 8:33 AM EMERGENCY VEHICLE OPERATOR Inhaled Oxygen Concentration - - Weight 110.6 kg (243 lb 13.3 oz) 04/12/2024 8:00 PM EMERGENCY VEHICLE OPERATOR Height 172.7 cm (5' 8 ) 04/11/2024 3:40 PM EMERGENCY VEHICLE OPERATOR Body Mass Index 37.07 04/11/2024 3:40 PM EMERGENCY VEHICLE OPERATOR Results * POCT glucose (04/13/2024 11:30 AM EMERGENCY VEHICLE OPERATOR) [facility] Signature Glucose, POC 143 70 - 199 mg/dL Blood 04/13/2024 11:3 0 AM EMERGENCY VEHICLE OPERATOR 04/13/2024 11:30 AM EMERGENCY VEHICLE OPERATOR us Nicole Boo MD LAB POCT ORDERABLES - DEVIC E Final Result [facility] Department [place] [address] * POCT glucose (04/13/2024 8:00 AM EMERGENCY VEHICLE OPERATOR) Glucose, POC 117 70 - 199 mg/dL Blood 04/13/2024 8:00 AM EMERGENCY VEHICLE OPERATOR 04/13/2024 8:00 AM EMERGENCY VEHICLE OPERATOR Nicole Boo MD LAB POCT ORDERABLES - DEVIC E Final Result Performing Organization Address City/[facility] Co de Phone Number [facility] [email or web address] [address] * (ABNORMAL) eGFR (04/13/2024 5:06 AM EMERGENCY VEHICLE OPERATOR) Pathologist [facility] eGFR 5(L) >=60 mL/min/1. 73 [...] last reviewed 2020. Blood 04/13/2024 5:06 AM EMERGENCY VEHICLE OPERATOR 04/13/2024 5:31 AM EMERGENCY VEHICLE OPERATOR us Saul Engle MD LAB BLOOD ORDERABLES Final Resul t Performing Organization Address City/[facility]/ZIP Co de Phone Number [facility] Department [place] [address] * (ABNORMAL) CBC without differential (04/13/2024 5:06 AM EMERGENCY VEHICLE OPERATOR) [facility] WBC 8.7 3.8 - 9.9 K/cumm Hgb 8.4(L) 13.0 - 17.5 g/dL [facility] Hct 25.4(L) 38.9 - 50.3 % [facility] Plt 214 150 - 400 K/cumm [facility] MPV 11.0 9.1 - 12.3 fL [facility] RBC 2.71(L) 4.30 - 5.80 M/cumm [facility] MCV 93.7 81.3 - 96.4 fL [facility] MCH 31.0 27.1 - 33.3 pg [facility] MCHC 33.1 32.3 - 35.7 g/dL [facility] RDW CV 15.9(H) 11.1 - 14.9 % [facility] RDW SD 52.7(H) 35.7 - 48.1 fL [facility] NRBC abs 0.02(H) 0.00 - 0.01 K/cumm [facility] Blood 04/13/2024 5:06 AM EMERGENCY VEHICLE OPERATOR 04/13/2024 5:31 AM EMERGENCY VEHICLE OPERATOR us Saul Engle MD LAB BLOOD ORDERABLES Final Resul t [facility] Department [place] [address] * (ABNORMAL) Comprehensive metabolic panel (04/13/2024 5:06 AM EMERGENCY VEHICLE OPERATOR) [facility] Sodium 134(L) 135 - 145 mmol/L Potassium, pl 3.5 3.3 - 4.9 mmol/L [facility] Chloride 95(L) 97 - 110 mmol/L [facility] CO2 25 22 - 32 mmol/L [facility] Anion gap 14 2 - 15 mmol/L [facility] BUN 43(H) 6 - 25 mg/dL [facility] Creatinine 10.98(H) 0.80 - 1.30 mg/dL [facility] Glucose 125 70 - 199 mg/dL [facility] Comment: Interpretive Data Fasting glucose [...] Calcium 8.2(L) 8.5 - 10.3 mg/dL [facility] Bilirubin, total 0.2 0.1 - 1.2 mg/dL [facility] Protein, pl 5.8(L) 6.5 - 8.5 g/dL [facility] Albumin 2.9(L) 3.5 - 5.0 g/dL [facility] Alk phos 41 40 - 130 Units/L [facility] ALT 18 7 - 55 Units/L [facility] AST 23 10 - 50 Units/L [facility] Blood 04/13/2024 5:06 AM EMERGENCY VEHICLE OPERATOR 04/13/2024 5:31 AM EMERGENCY VEHICLE OPERATOR Saul Engle MD LAB BLOOD ORDERABLES Final Resul t Performing Organization Address City/[facility]/ZIP Co de Phone Number [facility] Department [place] [address] * POCT glucose (04/13/2024 1:57 AM EMERGENCY VEHICLE OPERATOR) [facility] Signature Glucose, POC 151 70 - 199 mg/dL Blood 04/13/2024 1:57 AM EMERGENCY VEHICLE OPERATOR 04/13/2024 1:57 AM EMERGENCY VEHICLE OPERATOR Nicole Boo MD LAB POCT ORDERABLES - DEVIC E Final Result Performing Organization Address [facility] Co de Phone Number [facility] Department [place] [address] * (ABNORMAL) POCT glucose (04/12/2024 8:29 PM EMERGENCY VEHICLE OPERATOR) Glucose, POC 215(H) 70 - 199 mg/dL Blood 04/12/2024 8:29 PM EMERGENCY VEHICLE OPERATOR 04/12/2024 8:29 PM EMERGENCY VEHICLE OPERATOR Nicole Boo MD LAB POCT ORDERABLES - DEVIC E Final Result Performing Organization Address [facility] Co de Phone Number [facility] [email or web address] [address] * (ABNORMAL) POCT glucose (04/12/2024 5:29 PM EMERGENCY VEHICLE OPERATOR) Glucose, POC 254(H) 70 - 199 mg/dL Blood 04/12/2024 5:29 PM EMERGENCY VEHICLE OPERATOR 04/12/2024 5:29 PM EMERGENCY VEHICLE OPERATOR Nicole Boo MD LAB POCT ORDERABLES - DEVIC E Final Result Performing Organization Address [facility] Co de Phone Number [facility] [email or web address] [address] * POCT glucose (04/12/2024 11:32 AM EMERGENCY VEHICLE OPERATOR) Glucose, POC 194 70 - 199 mg/dL Blood 04/12/2024 11:3 2 AM EMERGENCY VEHICLE OPERATOR 04/12/2024 11:32 AM EMERGENCY VEHICLE OPERATOR Nicole Boo MD LAB POCT ORDERABLES - DEVIC E Final Result Performing Organization Address [facility] Co de Phone Number [facility] [email or web address] [address] * POCT glucose (04/12/2024 7:54 AM EMERGENCY VEHICLE OPERATOR) Glucose, POC 166 70 - 199 mg/dL Blood 04/12/2024 7:54 AM EMERGENCY VEHICLE OPERATOR 04/12/2024 7:54 AM EMERGENCY VEHICLE OPERATOR Saul Engle MD LAB POCT ORDERABLES - DEVICE Fin al Result Performing Organization Address [facility] de Phone Number [facility] Department [place] [address] * (ABNORMAL) eGFR (04/12/2024 6:00 AM EMERGENCY VEHICLE OPERATOR) eGFR 4(L) >=60 mL/min/1. 73 m2 Comment: [...] last reviewed 2020. Blood 04/12/2024 6:00 AM EMERGENCY VEHICLE OPERATOR 04/12/2024 6:18 AM EMERGENCY VEHICLE OPERATOR Saul Engle MD LAB BLOOD ORDERABLES Final Resul t Performing Organization Address [facility] Co de Phone Number [facility] Department [place] [address] * (ABNORMAL) CBC without differential (04/12/2024 6:00 AM EMERGENCY VEHICLE OPERATOR) Pathologist [facility] WBC 9.3 3.8 - 9.9 K/cumm Hgb 8.5(L) 13.0 - 17.5 g/dL [facility] Hct 25.6(L) 38.9 - 50.3 % [facility] Plt 225 150 - 400 K/cumm [facility] MPV 11.1 9.1 - 12.3 fL [facility] RBC 2.74(L) 4.30 - 5.80 M/cumm [facility] MCV 93.4 81.3 - 96.4 fL [facility] MCH 31.0 27.1 - 33.3 pg [facility] MCHC 33.2 32.3 - 35.7 g/dL [facility] RDW CV 15.7(H) 11.1 - 14.9 % [facility] RDW SD 52.7(H) 35.7 - 48.1 fL [facility] NRBC abs 0.02(H) 0.00 - 0.01 K/cumm [facility] Blood 04/12/2024 6:00 AM EMERGENCY VEHICLE OPERATOR 04/12/2024 6:18 AM EMERGENCY VEHICLE OPERATOR Saul Engle MD LAB BLOOD ORDERABLES Final Resul t [facility] Department [place] [address] * (ABNORMAL) Comprehensive metabolic panel (04/12/2024 6:00 AM EMERGENCY VEHICLE OPERATOR) Sodium 140 135 - 145 mmol/L Potassium, pl 3.5 3.3 - 4.9 mmol/L [facility] Chloride 98 97 - 110 mmol/L [facility] CO2 27 22 - 32 mmol/L [facility] Anion gap 15 2 - 15 mmol/L [facility] BUN 49(H) 6 - 25 mg/dL [facility] Creatinine 11.24(H) 0.80 - 1.30 mg/dL [facility] Glucose 153 70 - 199 mg/dL [facility] Comment: Interpretive Data Fasting glucose [...] Calcium 8.4(L) 8.5 - 10.3 mg/dL [facility] Bilirubin, total 0.2 0.1 - 1.2 mg/dL [facility] Protein, pl 5.5(L) 6.5 - 8.5 g/dL [facility] Albumin 3.0(L) 3.5 - 5.0 g/dL [facility] Alk phos 41 40 - 130 Units/L [facility] ALT 23 7 - 55 Units/L [facility] AST 30 10 - 50 Units/L [facility] Blood 04/12/2024 6:00 AM EMERGENCY VEHICLE OPERATOR 04/12/2024 6:18 AM EMERGENCY VEHICLE OPERATOR Saul Engle MD LAB BLOOD ORDERABLES Final Resul t Performing Organization Address City/[facility]/ZIP Co de Phone Number [facility] Department [place] [address] * POCT glucose (04/12/2024 4:35 AM EMERGENCY VEHICLE OPERATOR) Glucose, POC 169 70 - 199 mg/dL Blood 04/12/2024 4:35 AM EMERGENCY VEHICLE OPERATOR 04/12/2024 4:35 AM EMERGENCY VEHICLE OPERATOR Saul Engle MD LAB POCT ORDERABLES - DEVICE Fin al Result Performing Organization Address [facility]/ZIP Co de Phone Number [facility] Department [place] [address] * POCT glucose (04/12/2024 12:34 AM EMERGENCY VEHICLE OPERATOR) Glucose, POC 184 70 - 199 mg/dL Blood 04/12/2024 12:3 4 AM EMERGENCY VEHICLE OPERATOR 04/12/2024 12:34 AM EMERGENCY VEHICLE OPERATOR Saul Engle MD LAB POCT ORDERABLES - DEVICE Fin al Result Performing Organization Address [facility] Co de Phone Number [facility] [place] [address] * POCT glucose (04/11/2024 9:13 PM EMERGENCY VEHICLE OPERATOR) Glucose, POC 169 70 - 199 mg/dL Blood 04/11/2024 9:13 PM EMERGENCY VEHICLE OPERATOR 04/11/2024 9:13 PM EMERGENCY VEHICLE OPERATOR Saul Engle MD LAB POCT ORDERABLES - DEVICE Fin al Result Performing Organization Address [facility] de Phone Number [facility] Department [place] [address] * POCT glucose (04/11/2024 6:04 PM EMERGENCY VEHICLE OPERATOR) Glucose, POC 161 70 - 199 mg/dL Blood 04/11/2024 6:04 PM EMERGENCY VEHICLE OPERATOR 04/11/2024 6:04 PM EMERGENCY VEHICLE OPERATOR Saul Engle MD LAB POCT ORDERABLES - DEVICE Fin al Result Performing Organization Address [facility] de Phone Number [facility] Department [place] [address] * (ABNORMAL) POCT glucose (04/11/2024 2:25 PM EMERGENCY VEHICLE OPERATOR) Glucose, POC 201(H) 70 - 199 mg/dL Comment:Glu2: RN/ Notified Glucose comment 1 Glu2: RN/MD Notified [facility] Blood 04/11/2024 2:25 PM EMERGENCY VEHICLE OPERATOR 04/11/2024 2:25 PM EMERGENCY VEHICLE OPERATOR Nicole Boo MD LAB POCT ORDERABLES - DEVIC E Final Result Performing Organization Address [facility] Co de Phone Number [facility] [place] [address] * POCT glucose (04/11/2024 12:10 PM EMERGENCY VEHICLE OPERATOR) Pathologist [facility] Glucose, POC 193 70 - 199 mg/dL Blood 04/11/2024 12:1 0 PM EMERGENCY VEHICLE OPERATOR 04/11/2024 12:10 PM EMERGENCY VEHICLE OPERATOR Nicole Boo MD LAB POCT ORDERABLES - DEVIC E Final Result Performing Organization Address City/[facility]/[place] [address] * C. difficile testing Stool (04/11/2024 8:41 AM EMERGENCY VEHICLE OPERATOR) [facility] Result Negative Negative Toxin Result Negative Negative [facility] C. diff result Negative, free toxin Negative, free toxin [facility] C. diff interp Negative for toxigenic Clostridioides (Clostridium) difficile. Analysis was performed using a glutamate dehydrogenase antigen detection assay combined with a C. difficile toxin detection assay. [facility] Stool 04/11/2024 8:41 AM EMERGENCY VEHICLE OPERATOR 04/11/2024 11:19 AM EMERGENCY VEHICLE OPERATOR Nicole Boo MD LAB MICROBIOLOGY - GENERAL ORDERABLES Final Result Performing Organization Address City/[facility] Co de Phone Number [facility] [place] [address] * H. pylori antigen, stool Stool (04/11/2024 8:41 AM EMERGENCY VEHICLE OPERATOR) [facility] H. pylori Ag, stool Negative Negative Comment: Interpretative Data Testing performed at the [facility] using the Curian HpSA lateral [...] revised February 2020. Stool 04/11/2024 8:41 AM EMERGENCY VEHICLE OPERATOR 04/11/2024 11:20 AM EMERGENCY VEHICLE OPERATOR Nicole Boo MD LAB MICROBIOLOGY - GENERAL ORDERABLES Final Result Performing Organization Address [facility] [place] [address] * Infection Prevention VRE Culture Stool (04/11/2024 8:41 AM EMERGENCY VEHICLE OPERATOR) Report Final Report: Negative Stool 04/11/2024 8:41 AM EMERGENCY VEHICLE OPERATOR 04/11/2024 1:46 PM EMERGENCY VEHICLE OPERATOR Narrative [facility] - 04/13/2024 2:39 PM EMERGENCY VEHICLE OPERATOR Surveillance culture for Infection Prevention purposes only; results indicate colonization, not infection requiring treatment. Testing performed by [facility] ([phone]). Nicole Boo MD LAB MICROBIOLOGY - GENERAL ORDERABLES Final Result Performing Organization Address [facility] de Phone Number [facility] [email or web address] [address] * Stool culture Stool Rectum (04/11/2024 8:41 AM EMERGENCY VEHICLE OPERATOR) Direct Specimen Exam Shiga Toxin Testing: Antigen detection assay for Shiga-toxin NEGATIVE for Shiga Toxin 1 and Shiga Toxin 2. Report Final Report: No growth of enteric bacterial pathogens [facility] Stool (Rectum) 04/11/2024 8: 41 AM EMERGENCY VEHICLE OPERATOR 04/11/2024 11:21 AM EMERGENCY VEHICLE OPERATOR Narrative [facility] - 04/15/2024 10:42 AM EMERGENCY VEHICLE OPERATOR Testing performed by [facility] ([phone]). Routine stool cultures include procedures to detect Salmonella, Shigella, Edwardsiella, Aeromonas, Pleisiomonas, Campylobacter, Yersinia, E. coli O157, and Shiga-like toxins. Vibrio is cultured only upon special request. If Vibrio is suspected, please call the laboratory at [phone]. Interpretive data was last updated June 24, 2016. Nicole Boo MD LAB MICROBIOLOGY - GENERAL ORDERABLES Final Result Performing Organization Address [facility] Co de Phone Number [facility] Department [place] [address] * POCT glucose (04/11/2024 8:30 AM EMERGENCY VEHICLE OPERATOR) Glucose, POC 150 70 - 199 mg/dL Blood 04/11/2024 8:30 AM EMERGENCY VEHICLE OPERATOR 04/11/2024 8:30 AM EMERGENCY VEHICLE OPERATOR Result [facility] Nicole Boo MD LAB POCT ORDERABLES - DEVIC E Final Result Performing Organization Address [facility] de Phone Number [facility] [address] * (ABNORMAL) Troponin I high-sensitivity 6-hour (04/11/2024 4:47 AM EMERGENCY VEHICLE OPERATOR) Pathologist [facility] Trop I hs 193(H) <=35 ng/L Comment: Interpretive Data For further [facility] resources including the diagnostic algorithm and an aid in interpretation, copy and paste this link: [email or web address] Current Interpretive Data last revised 2019. Trop I hs pct delta -13 % [facility] Trop I hs interp Equivocal [facility] Blood 04/11/2024 4:47 AM EMERGENCY VEHICLE OPERATOR 04/11/2024 5:05 AM EMERGENCY VEHICLE OPERATOR Result [facility] Roberto Medina MD LAB BLOOD ORDERABLES F inal Result Performing Organization Address [facility] Co de Phone Number [facility] [place] [address] * Cell Differential, Body Fluid (04/11/2024 3:51 AM EMERGENCY VEHICLE OPERATOR) Total cells diffed 100 cells Comment: Interpretive [...] % [facility] Fluid 04/11/2024 3:51 AM EMERGENCY VEHICLE OPERATOR 04/11/2024 5:30 AM EMERGENCY VEHICLE OPERATOR Saul Engle MD LAB BODY FLUIDS AND STOOLS ORDER MICHELLE Final Result Performing Organization Address [facility] de Phone Number [facility] [email or web address] [address] * Cell count w/rflx diff, body fluid (04/11/2024 3:51 AM EMERGENCY VEHICLE OPERATOR) Specimen type, fld Dialysate Color, fld Straw [facility] Clarity, fld Clear Clear [facility] Nucleated cells, fld 21 /cumm [facility] Comment: Interpretive Data Unless otherwise specified, the reference range and other method performance specifications have not been established for CSF/Body Fluid tests. The test results should be integrated into the clinical context for interpretation. Current interpretive data was last revised on 2018. RBC, fld 0 /cumm [facility] Fluid 04/11/2024 3:51 AM EMERGENCY VEHICLE OPERATOR 04/11/2024 5:30 AM EMERGENCY VEHICLE OPERATOR Saul Engle MD LAB BODY FLUIDS AND STOOLS ORDER MICHELLE Final Result Performing Organization Address [facility] Co de Phone Number [facility] [email or web address] [address] * Aerobic and anaerobic culture and gram stain Peritoneal dialysis fluid Peritoneum (04/11/2024 3:51 AM EMERGENCY VEHICLE OPERATOR) Direct Specimen Exam Stain: Cytospin Gram stain shows: Rare polymorphonuclear leukocytes seen. Other cellular material present. No organisms seen. Report Final Report: No growth [facility] Peritoneal dialysis fluid (Peritoneum) 04/11/2024 3:51 AM EMERGENCY VEHICLE OPERATOR 04/11/2024 6:13 AM EMERGENCY VEHICLE OPERATOR Narrative [facility] - 04/17/2024 12:22 PM EMERGENCY VEHICLE OPERATOR Fluid specimen received. Testing performed by [facility] ([phone]) Specimens submitted from normally sterile body sites [...] ORDER MICHELLE Final Result Performing Organization Address City/[facility]/ZIP Co de Phone Number [facility] Department [email or web address] [address] * (ABNORMAL) POCT glucose (04/11/2024 3:43 AM EMERGENCY VEHICLE OPERATOR) Pathologist [facility] Glucose, POC 223(H) 70 - 199 mg/dL Blood 04/11/2024 3:43 AM EMERGENCY VEHICLE OPERATOR 04/11/2024 3:43 AM EMERGENCY VEHICLE OPERATOR Saul Engle MD LAB POCT ORDERABLES - DEVICE Fin al Result Performing Organization Address City/[facility]/ZIP Co de Phone Number [facility] Department [email or web address] [address] * (ABNORMAL) Troponin I high-sensitivity 4-hour (04/11/2024 3:41 AM EMERGENCY VEHICLE OPERATOR) Pathologist [facility] Trop I hs 192(H) <=35 ng/L Comment: Interpretive Data For further hscTnI resources including the diagnostic algorithm and an aid in interpretation, copy and paste this link: https://bjhlab.testcatalog.org/show/hsTrop-1 Current Interpretive Data last revised 2019. Trop I hs pct delta -14 % [facility] Trop I hs interp Equivocal [facility] Blood 04/11/2024 3:41 AM EMERGENCY VEHICLE OPERATOR 04/11/2024 4:09 AM EMERGENCY VEHICLE OPERATOR Roberto Medina MD LAB BLOOD ORDERABLES F inal Result Performing Organization Address City/[facility]/ZIP Co de Phone Number [facility] Department [place] [address] * Sepsis Lactate w/ Reflex (04/11/2024 3:41 AM EMERGENCY VEHICLE OPERATOR) Sepsis Lactate 2.0 0.7 - 2.0 mmol/L Blood 04/11/2024 3:41 AM EMERGENCY VEHICLE OPERATOR 04/11/2024 3:48 AM EMERGENCY VEHICLE OPERATOR Roberto Medina MD LAB BLOOD ORDERABLES F inal Result Performing Organization Address City/[facility] Co de Phone Number [facility] Department [place] [address] * CT Abdomen Pelvis W Contrast (04/11/2024 2:21 AM EMERGENCY VEHICLE OPERATOR) Anatomical Region Laterality Modality Body N/A Computed Tomogra phy 04/11/2024 2:42 AM EMERGENCY VEHICLE OPERATOR Impressions 04/11/2024 1:21 PM EMERGENCY VEHICLE OPERATOR 1. Peritoneal dialysis catheter in place with [...] Wallace Mederos M.D. Narrative 04/11/2024 1:21 PM EMERGENCY VEHICLE OPERATOR EXAMINATION: Computed tomography of the abdomen and [...] Result * ECG 12-LEAD (04/11/2024 1:52 AM EMERGENCY VEHICLE OPERATOR) Narrative [facility] - 04/11/2024 1:52 AM EMERGENCY VEHICLE OPERATOR Olu Collins MD 04/11/2024 1:54 AM ECG [...] ECG ORDERABLES Final Result Performing Organization Address City/[facility]/ZIP Co de Phone Number [facility] * (ABNORMAL) Troponin I high-sensitivity 2-hour (04/11/2024 1:48 AM EMERGENCY VEHICLE OPERATOR) Trop I hs 214(C) <=35 ng/L Comment: Previous critical value noted within 48 hours ago. Interpretive Data For further [facility] resources including the diagnostic algorithm and an aid in interpretation, copy and paste this link: https://bjhlab.testcatalog.org/show/hsTrop-1 Current Interpretive Data last revised 2019. Trop I hs pct delta -4 % [facility] Trop I hs interp Insignificant [facility] Blood 04/11/2024 1:48 AM EMERGENCY VEHICLE OPERATOR 04/11/2024 2:01 AM EMERGENCY VEHICLE OPERATOR Roberto Medina MD LAB BLOOD ORDERABLES F inal Result [facility] Department [place] [address] * RI CRITICAL CARE ILL/INJURED PATIENT INIT 30-74 MIN (04/11/2024 1:29 AM EMERGENCY VEHICLE OPERATOR) Narrative Olu Collins MD - 04/11/2024 1:29 AM EMERGENCY VEHICLE OPERATOR Olu Collins MD 04/11/2024 5:14 AM Critical [...] Chest 1 Vw Portable (04/11/2024 1:01 AM EMERGENCY VEHICLE OPERATOR) Anatomical Region Laterality Modality Body, Chest N/A Computed Radiogr aphy 04/11/2024 1:48 AM EMERGENCY VEHICLE OPERATOR Impressions 04/11/2024 1:25 PM EMERGENCY VEHICLE OPERATOR Comparison to 04/11/2024 No pneumothorax. Small lung [...] Wallace Mederos M.D. Narrative 04/11/2024 1:25 PM EMERGENCY VEHICLE OPERATOR EXAMINATION: 1 view chest radiograph Procedure Note [...] Sepsis Lactate w/ Reflex (04/11/2024 12:17 AM EMERGENCY VEHICLE OPERATOR) Sepsis Lactate 2.4(H) 0.7 - 2.0 mmol/L Blood 04/11/2024 12:1 7 AM EMERGENCY VEHICLE OPERATOR 04/11/2024 12:22 AM EMERGENCY VEHICLE OPERATOR us Prerak Bhavesh Medina MD LAB BLOOD ORDERABLES F inal Result [facility] Department [place] [address] * (ABNORMAL) Troponin I high-sensitivity series (baseline, 2hr, 4hr, 6hr) (04/10/2024 11:41 PM EMERGENCY VEHICLE OPERATOR) Trop I hs 223(C) <=35 ng/L Comment: Reviewed Interpretive Data For further hscTnI resources including the diagnostic algorithm and an aid in interpretation, copy and paste this link: https://bjhlab.testcatalog.org/show/hsTrop-1 Current Interpretive Data last revised 2019. Blood 04/10/2024 11:4 1 PM EMERGENCY VEHICLE OPERATOR 04/10/2024 11:54 PM EMERGENCY VEHICLE OPERATOR Roberto Medina MD LAB BLOOD ORDERABLES F inal Result Performing Organization Address City/[facility]/ZIP Co de Phone Number [facility] [place] [address] * Critical result callback Cardio chemistry (04/10/2024 11:41 PM EMERGENCY VEHICLE OPERATOR) Date Notified [id number] Time Notified 108 [facility] Test name Trop I hs [facility]ERRI SIMPSON Called/Read Back Olu SIMPSON Credentials MD KERRI SIMPSON Called By SB [facility] Blood 04/10/2024 11:4 1 PM EMERGENCY VEHICLE OPERATOR 04/10/2024 11:54 PM EMERGENCY VEHICLE OPERATOR Roberto Medina MD LAB BLOOD ORDERABLES F inal Result Performing Organization Address [facility] Co de Phone [facility] [place] [address] * (ABNORMAL) eGFR (04/10/2024 11:41 PM EMERGENCY VEHICLE OPERATOR) eGFR 5(L) >=60 mL/min/1. 73 m2 Comment: [...] reviewed 2020. Blood 04/10/2024 11:4 1 PM EMERGENCY VEHICLE OPERATOR 04/10/2024 11:55 PM EMERGENCY VEHICLE OPERATOR Sumit Baptiste MD LAB BLOOD ORDERABLES Kenna haider Result [facility] Department [place] [address] * (ABNORMAL) Differential, auto (04/10/2024 11:41 PM EMERGENCY VEHICLE OPERATOR) Neutrophil abs 9.3(H) 1.5 - 6.5 K/cumm Imm gran abs 1.1(H) 0.0 - 0.1 K/cumm [facility] Lymphocyte abs 1.6 0.8 - 3.3 K/cumm [facility] Monocyte abs 1.0(H) 0.2 - 0.8 K/cumm [facility] Eosinophil abs 0.1 0.0 - 0.5 K/cumm [facility] Basophil abs 0.1 0.0 - 0.1 K/cumm [facility] Neutrophil pct 71.0 % [facility] Comment: Confirmed by smear review Interpretive Data Percent cell count reference ranges are not reported, since discordance with absolute values may lead to misinterpretation of CBC data. Current Interpretive Data was last revised on 2017. Imm gran pct 8.2 % [facility] Comment: Interpretive Data Percent cell count reference ranges are not reported, since discordance with absolute values may lead to misinterpretation of CBC data. Current Interpretive Data was last revised on 2017. Lymphocyte pct 12.3 % [facility] Comment: Interpretive Data Percent cell count reference ranges are not reported, since discordance with absolute values may lead to misinterpretation of CBC data. Current Interpretive Data was last revised on 2017. Monocyte pct 7.3 % [facility] Comment: Interpretive Data Percent cell count reference ranges are not reported, since discordance with absolute values may lead to misinterpretation of CBC data. Current Interpretive Data was last revised on 2017. Eosinophil pct 0.8 % [facility] Comment: Interpretive Data Percent cell count reference ranges are not reported, since discordance with absolute values may lead to misinterpretation of CBC data. Current Interpretive Data was last revised on 2017. Basophil pct 0.4 % [facility] Comment: Interpretive Data Percent cell count reference ranges are not reported, since discordance with absolute values may lead to misinterpretation of CBC data. Current Interpretive Data was last revised on 2017. Blood 04/10/2024 11:4 1 PM EMERGENCY VEHICLE OPERATOR 04/10/2024 11:54 PM EMERGENCY VEHICLE OPERATOR Sumit Baptiste MD LAB BLOOD ORDERABLES Kenna haider Result [facility] Department [place] [address] * Respiratory pathogen panel Nasopharyngeal (04/10/2024 11:41 PM EMERGENCY VEHICLE OPERATOR) Pathologist [facility] Influenza A RNA Not Detected Not Detected Influenza B RNA Not Detected Not Detected [facility] RSV RNA Not Detected Not Detected [facility] COVID-19 RNA Not Detected Not Detected [facility] Coronavirus 229E RNA Not Detected Not Detected [facility] Coronavirus HKU1 RNA Not Detected Not Detected [facility] Coronavirus NL63 RNA Not Detected Not Detected [facility] Coronavirus OC43 RNA Not Detected Not Detected [facility] Adenovirus DNA Not Detected Not Detected [facility] Metapneumovirus RNA Not Detected Not Detected [facility] Rhinovirus/Enterov irus RNA Not Detected Not Detected [facility] Parainfluenza 1 RNA Not Detected Not Detected [facility] Parainfluenza 2 RNA Not Detected Not Detected [facility] Parainfluenza 3 RNA Not Detected Not Detected [facility] Parainfluenza 4 RNA Not Detected Not Detected [facility] B. pertussis DNA Not Detected Not Detected [facility] B. parapertussis DNA Not Detected Not Detected [facility] C. pneumoniae DNA Not Detected Not Detected [facility] M. pneumoniae DNA Not Detected Not Detected [facility] Nasopharyngeal 04/10/2024 11 :41 PM EMERGENCY VEHICLE OPERATOR 04/11/2024 12:16 AM EMERGENCY VEHICLE OPERATOR Mayelin [facility] - 04/11/2024 1:23 AM EMERGENCY VEHICLE OPERATOR Is the Patient experiencing symptoms consistent with COVID?->Unknown Surveillance testing for transplant patient?->No Interpretive Data The [employer] FilmArray Respiratory Panel (RP2.1) assay is a [...] assay has FDA clearance for testing of APPLIANCE REPAIRER swabs. The performance of additional specimen types has been assessed by the performing laboratory. The performance characteristics of this assay have been determined by [facility] Molecular Infectious Disease Laboratory. Current interpretive data was last revised on 21. us Roberto Medina MD LAB MICROBIOLOGY - GEN ERAL ORDERABLES Final Result Performing Organization Address [facility] Co de Phone Number [facility] Department [place] [address] * (ABNORMAL) CBC with auto differential (04/10/2024 11:41 PM EMERGENCY VEHICLE OPERATOR) WBC 13.1(H) 3.8 - 9.9 K/cumm Hgb 9.8(L) 13.0 - 17.5 g/dL [facility] Hct 30.3(L) 38.9 - 50.3 % [facility] Plt 272 150 - 400 K/cumm [facility] MPV 11.5 9.1 - 12.3 fL [facility] RBC 3.21(L) 4.30 - 5.80 M/cumm [facility] MCV 94.4 81.3 - 96.4 fL [facility] MCH 30.5 27.1 - 33.3 pg [facility] MCHC 32.3 32.3 - 35.7 g/dL [facility] RDW CV 15.8(H) 11.1 - 14.9 % [facility] RDW SD 54.0(H) 35.7 - 48.1 fL [facility] NRBC abs 0.00 0.00 - 0.01 K/cumm [facility] Blood 04/10/2024 11:4 1 PM EMERGENCY VEHICLE OPERATOR 04/10/2024 11:54 PM EMERGENCY VEHICLE OPERATOR Olu Collins MD LAB BLOOD ORDERABLES Final Re sult Performing Organization Address City/[facility]/ZIP Co de Phone Number [facility] Department [place] [address] * Blood culture Blood (04/10/2024 11:41 PM EMERGENCY VEHICLE OPERATOR) Report Final Report: No growth Blood 04/10/2024 11:4 1 PM EMERGENCY VEHICLE OPERATOR 04/11/2024 1:59 AM EMERGENCY VEHICLE OPERATOR Narrative [facility] - 04/15/2024 7:01 AM EMERGENCY VEHICLE OPERATOR Collection->Peripheral 1. Blood cultures are incubated for [...] performance characteristics have been verified by the [facility]. For questions about this culture, contact the Microbiology Laboratory at [phone]. Interpretive data was last revised on 23. us Prerak Bhavesh Medina MD LAB MICROBIOLOGY - GEN ERAL ORDERABLES Final Result [facility] Department [place] [address] * Blood culture Blood (04/10/2024 11:41 PM EMERGENCY VEHICLE OPERATOR) Report Final Report: No growth Blood 04/10/2024 11:4 1 PM EMERGENCY VEHICLE OPERATOR 04/11/2024 1:59 AM EMERGENCY VEHICLE OPERATOR Narrative [facility] - 04/15/2024 7:01 AM EMERGENCY VEHICLE OPERATOR Collection->Peripheral 1. Blood cultures are incubated for [...] performance characteristics have been verified by the [facility]. For questions about this culture, contact the Microbiology Laboratory at [phone]. Interpretive data was last revised on 23. Roberto Medina MD LAB MICROBIOLOGY - GEN ERAL ORDERABLES Final Result Performing Organization Address City/[facility]/ZIP Co de Phone Number [facility] Department [place] [address] * TSH (04/10/2024 11:41 PM EMERGENCY VEHICLE OPERATOR) Thyroid Stimulating Hormone 3.20 0.30 - 4.20 mcIUnit/mL Blood 04/10/2024 11:4 1 PM EMERGENCY VEHICLE OPERATOR 04/10/2024 11:55 PM EMERGENCY VEHICLE OPERATOR Olu Collins MD LAB BLOOD ORDERABLES Final Re sult Performing Organization Address City/[facility]/ZIP Co de Phone Number [facility] Department [place] [address] * Cholesterol, LDL, direct (04/10/2024 11:41 PM EMERGENCY VEHICLE OPERATOR) LDL Cholesterol, Direct 41 <=129 mg/dL Comment: [...] on 2017. Blood 04/10/2024 11:4 1 PM EMERGENCY VEHICLE OPERATOR 04/10/2024 11:55 PM EMERGENCY VEHICLE OPERATOR Narrative [facility] - 04/11/2024 6:09 PM EMERGENCY VEHICLE OPERATOR Cholesterol, LDL, direct reflexed based on Elevated Triglyceride (>400) Nicole Boo MD LAB BLOOD ORDERABLES Final Result Performing Organization Address City/[facility] Co de Phone Number [facility] [place] [address] * (ABNORMAL) Hemoglobin A1c (04/10/2024 11:41 PM EMERGENCY VEHICLE OPERATOR) Pathologist [facility] Hgb A1C 7.0(H) 4.0 - 5.6 % Estimated Average Glucose 154 mg/dL [facility] Comment: The ADA recommends reporting an estimated Average Glucose (eAG) with all Hemoglobin A1c results using the equation derived from a study of 507 normal and diabetic adults. Minority populations were underrepresented and children were not included. (Diabetes Care 2020; 43(S1): S66-S76). The eAG is not equivalent to a fasting glucose. Blood 04/10/2024 11:4 1 PM EMERGENCY VEHICLE OPERATOR 04/10/2024 11:57 PM EMERGENCY VEHICLE OPERATOR Saul Engle MD LAB BLOOD ORDERABLES Final Resul t Performing Organization Address City/[facility]/ZIP Co de Phone Number [facility] [email or web address] [place] [address] * (ABNORMAL) Lipid panel (04/10/2024 11:41 PM EMERGENCY VEHICLE OPERATOR) [facility] Cholesterol 145 30 - 199 mg/dL [...] on 2017. Triglycerides 453(H) <=149 mg/dL [facility] Comment: Interpretive Data Ages < or [...] revised on 2017. HDL 22(L) >=40 mg/dL [facility] Comment: Interpretive Data Ages < or [...] 2017. LDL, calculated See Comment <=129 [facility] Comment: Unable to calculate LDL due [...] revised on 2023. Non-HDL Cholesterol 123 mg/dL [facility] Comment: Interpretive Data Ages < [...] last revised on 2017. Chol/HDL ratio 7 [facility] Blood 04/10/2024 11:4 1 PM EMERGENCY VEHICLE OPERATOR 04/10/2024 11:55 PM EMERGENCY VEHICLE OPERATOR Nicole Boo MD LAB BLOOD ORDERABLES Final Result [facility] Department [place] [address] * (ABNORMAL) Comprehensive metabolic panel (04/10/2024 11:41 PM EMERGENCY VEHICLE OPERATOR) Sodium 141 135 - 145 mmol/L Potassium, pl 3.4 3.3 - 4.9 mmol/L [facility] Chloride 98 97 - 110 mmol/L [facility] CO2 27 22 - 32 mmol/L [facility] Anion gap 16(H) 2 - 15 mmol/L [facility] BUN 45(H) 6 - 25 mg/dL [facility] Creatinine 10.90(H) 0.80 - 1.30 mg/dL [facility] Glucose 240(H) 70 - 199 mg/dL [facility] Comment: Interpretive Data Fasting glucose [...] 2022. Calcium 9.2 8.5 - 10.3 mg/dL [facility] Bilirubin, total 0.2 0.1 - 1.2 mg/dL [facility] Protein, pl 6.5 6.5 - 8.5 g/dL [facility] Albumin 3.1(L) 3.5 - 5.0 g/dL [facility] Alk phos 64 40 - 130 Units/L [facility] ALT 26 7 - 55 Units/L [facility] AST 30 10 - 50 Units/L [facility] Blood 04/10/2024 11:4 1 PM EMERGENCY VEHICLE OPERATOR 04/10/2024 11:55 PM EMERGENCY VEHICLE OPERATOR Olu Collins MD LAB BLOOD ORDERABLES Final Re sult [facility] Department [place] [address] * (ABNORMAL) ECG 12-LEAD (04/10/2024 11:15 PM EMERGENCY VEHICLE OPERATOR) Narrative [facility] - 04/10/2024 11:15 PM EMERGENCY VEHICLE OPERATOR Mario Alberto Cornelius MD 04/10/2024 11:17 PM [...] the ED Mario Alberto Cornelius MD 04/10/24 5040 us Olu Collins MD ECG ORDERABLES Final Result [facility] * OCT, Retina - OU - Both Eyes (03/09/2024 2:00 PM EMERGENCY VEHICLE OPERATOR) Central Macular Thickness OS 227 micrometers CONTINUUM Central Macular Thickness OD 479 micrometers CONTINUUM Anatomical Region Laterality Modality Head Optical Coherenc e Tomography Narrative 03/16/2024 12:53 PM EMERGENCY VEHICLE OPERATOR Right Eye Quality was good. Scan [...]
--- OUTSIDE RECORDS SUMMARY | 2024-05-07 13:11 | XMS_ITS | Clinical Summary ---
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 the reference range and other method performance specifications have not been established for CSF/Body Fluid tests. The test results should be integrated into the clinical context for interpretation. Current interpretive data was last revised on 2018. Neutrophils, fld 6 % [facility] Lymphs, fld 21 % [facility] Monocyte, fld 66 % [facility] Basophils, fld 1 % [facility] Macrophages, fld 2 % [facility] Mesothelial cells, fld 4 % [facility] Fluid 04/11/2024 3:51 AM [employer] [employer]ER 04/11/2024 5:30 AM [employer] [employer] LAB[employer]ER Saul Engle MD LAB BODY FLUIDS AND STOOLS ORDER MICHELLE Final Result Performing Organization Address [facility] de Phone Number [facility] Department [place] [address] * Cell count w/rflx diff, body fluid (04/11/2024 3:51 AM [employer] [employer]ER) Specimen type, fld Dialysate Color, fld Straw [facility] Clarity, fld Clear Clear [facility] Nucleated cells, fld 21 /cumm [facility] Comment: Interpretive Data Unless otherwise specified, the reference range and other method performance specifications have not been established for CSF/Body Fluid tests. The test results should be integrated into the clinical context for interpretation. Current interpretive data was last revised on 2018. RBC, fld 0 /cumm [facility] Fluid 04/11/2024 3:51 AM [employer] [employer]ER 04/11/2024 5:30 AM [employer] [employer]ER Saul Engle MD LAB BODY FLUIDS AND STOOLS ORDER MICHELLE Final Result Performing Organization Address [facility] de Phone Number [facility] Department [place] [address] * Aerobic and anaerobic culture and gram stain Peritoneal dialysis fluid Peritoneum (04/11/2024 3:51 AM [employer]ER) Direct Specimen Exam Stain: Cytospin Gram stain shows: Rare polymorphonuclear leukocytes seen. Other cellular material present. No organisms seen. Report Final Report: No growth [facility] Peritoneal dialysis fluid (Peritoneum) 04/11/2024 3:51 AM [employer] [employer]ER 04/11/2024 6:13 AM [employer] [employer] LAB[employer]ER Narrative [facility] - 04/17/2024 12:22 PM [employer] [employer]ER Fluid specimen received. Testing performed by [facility] ([phone]) Specimens submitted from normally sterile body sites [...] ORDER MICHELLE Final Result Performing Organization Address [facility] Co de Phone Number [facility] Department [place] [address] * (ABNORMAL) POCT glucose (04/11/2024 3:43 AM [employer] [employer]ER) Glucose, POC 223(H) 70 - 199 mg/dL Blood 04/11/2024 3:43 AM [employer] [employer]ER 04/11/2024 3:43 AM [employer] [employer]ER Saul Engle MD LAB POCT ORDERABLES - DEVICE Fin al Result Performing Organization Address [facility] Co de Phone Number [facility] [place] [address] * (ABNORMAL) Troponin I high-sensitivity 4-hour (04/11/2024 3:41 AM [employer]) Trop I hs 192(H) <=35 ng/L Comment: Interpretive Data For further hscTnI resources including the diagnostic algorithm and an aid in interpretation, copy and paste this link: https://bjhlab.testcatalog.org/show/hsTrop-1 Current Interpretive Data last revised 2019. Trop I hs pct delta -14 % [facility] Trop I hs interp Equivocal [facility] Blood 04/11/2024 3:41 AM [employer]ER 04/11/2024 4:09 AM [employer] LAB[employer]ER us Roberto Medina MD LAB BLOOD ORDERABLES F inal Result [facility] Schroeder [facility] Department [place] [address] * Sepsis Lactate w/ Reflex (04/11/2024 3:41 AM [employer] LAB[employer]ER) Sepsis Lactate 2.0 0.7 - 2.0 mmol/L Blood 04/11/2024 3:41 AM [employer] LAB[employer]ER 04/11/2024 3:48 AM [employer] LAB[employer]ER Premat Medina MD LAB BLOOD ORDERABLES F inal Result Performing Organization Address [facility] de Phone Number KERRI SIMPSON [facility] Department [place] [address] * CT Abdomen Pelvis W Contrast (04/11/2024 2:21 AM [employer]ER) Anatomical Region Laterality Modality Body N/A Computed Tomogra phy 04/11/2024 2:42 AM [employer] [employer] LAB[employer]ER Impressions 04/11/2024 1:21 PM [employer] [employer] LAB[employer]ER 1. Peritoneal dialysis catheter in place with [...] Wallace Mederos M.D. Narrative 04/11/2024 1:21 PM [employer] [employer] LAB[employer]ER EXAMINATION: Computed tomography of the abdomen and [...] Result * ECG 12-LEAD (04/11/2024 1:52 AM [employer] [employer] LAB[employer]ER) Narrative [facility] - 04/11/2024 1:52 AM [employer] [employer] LAB[employer]ER Olu Collins MD 04/11/2024 1:54 AM ECG [...] ECG ORDERABLES Final Result Performing Organization Address [facility] Co de Phone Number [facility] * (ABNORMAL) Troponin I high-sensitivity 2-hour (04/11/2024 1:48 AM [employer]ER) Trop I hs 214(C) <=35 ng/L Comment: Previous critical value noted within 48 hours ago. Interpretive Data For further hscTnI resources including the diagnostic algorithm and an aid in interpretation, copy and paste this link: https://bjhlab.testcatalog.org/show/hsTrop-1 Current Interpretive Data last revised 2019. Trop I hs pct delta -4 % [facility] Trop I hs interp Insignificant [facility] Blood 04/11/2024 1:48 AM [employer]ER 04/11/2024 2:01 AM [employer] LAB[employer]ER Roberto Medina MD LAB BLOOD ORDERABLES F inal Result Performing Organization Address [facility] Co de Phone Number [facility] One [facility] Department [place] [address] * LA CRITICAL CARE ILL/INJURED PATIENT INIT 30-74 MIN (04/11/2024 1:29 AM [employer]ING [employer] LAB[employer]ER) Narrative Olu Collins MD - 04/11/2024 1:29 AM [employer] LAB[employer]ER Olu Collins MD 04/11/2024 5:14 AM Critical [...] Chest 1 Vw Portable (04/11/2024 1:01 AM [employer] LABORER) Anatomical Region Laterality Modality Body, Chest N/A Computed Radiogr aphy 04/11/2024 1:48 AM [employer] LAB[employer]ER Impressions 04/11/2024 1:25 PM [employer] LAB[employer]ER Comparison to 04/11/2024 No pneumothorax. Small lung [...] Wallace Mederos M.D. Narrative 04/11/2024 1:25 PM [employer] LAB[employer]ER EXAMINATION: 1 view chest radiograph Procedure Note [...] Sepsis Lactate w/ Reflex (04/11/2024 12:17 AM [employer] LAB[employer]ER) Sepsis Lactate 2.4(H) 0.7 - 2.0 mmol/L Blood 04/11/2024 12:1 7 AM [employer] LAB[employer]ER 04/11/2024 12:22 AM [employer] LAB[employer]ER Roberto Medina MD LAB BLOOD ORDERABLES F inal Result Performing Organization Address [facility] Co de Phone Number [facility] [place] [address] * (ABNORMAL) Troponin I high-sensitivity series (baseline, 2hr, 4hr, 6hr) (04/10/2024 11:41 PM [employer]ER) Trop I hs 223(C) <=35 ng/L Comment: Reviewed Interpretive Data For further hscTnI resources including the diagnostic algorithm and an aid in interpretation, copy and paste this link: https://bjhlab.testcatalog.org/show/hsTrop-1 Current Interpretive Data last revised 2019. Blood 04/10/2024 11:4 1 PM [employer]ER 04/10/2024 11:54 PM [employer] LAB[employer]ER Roberto Medina MD LAB BLOOD ORDERABLES F inal Result Performing Organization Address City/[facility] Co de Phone Number [facility] [place] [address] * Critical result callback Cardio chemistry (04/10/2024 11:41 PM [employer] [employer] LABORER) Date Notified [id number] Time Notified 108 [facility] Test name [facility] Called/Read Back Olu MANNING [facility] Credentials MD MANN[facility] Called By KIM [facility] Blood 04/10/2024 11:4 1 PM [employer]ER 04/10/2024 11:54 PM [employer]ER Roberto Medina MD LAB BLOOD ORDERABLES F inal Result Performing Organization Address City/[facility]/ZIP Co de Phone Number [facility] Department [place] [address] * (ABNORMAL) eGFR (04/10/2024 11:41 PM [employer]ER) eGFR 5(L) >=60 mL/min/1. 73 m2 Comment: [...] reviewed 2020. Blood 04/10/2024 11:4 1 PM [employer]ER 04/10/2024 11:55 PM [employer] LABORER us Sumit Baptiste MD LAB BLOOD ORDERABLES Kenna l Result Performing Organization Address City/[facility]/ZIP Co de Phone Number [facility] Department [place] [address] * (ABNORMAL) Differential, auto (04/10/2024 11:41 PM [employer]ER) Neutrophil abs 9.3(H) 1.5 - 6.5 K/cumm Imm gran abs 1.1(H) 0.0 - 0.1 K/cumm [facility] Lymphocyte abs 1.6 0.8 - 3.3 K/cumm [facility] Monocyte abs 1.0(H) 0.2 - 0.8 K/cumm [facility] Eosinophil abs 0.1 0.0 - 0.5 K/cumm [facility] Basophil abs 0.1 0.0 - 0.1 K/cumm [facility] Neutrophil pct 71.0 % [facility] Comment: Confirmed by smear review Interpretive Data Percent cell count reference ranges are not reported, since discordance with absolute values may lead to misinterpretation of CBC data. Current Interpretive Data was last revised on 2017. Imm gran pct 8.2 % [facility] Comment: Interpretive Data Percent cell count reference ranges are not reported, since discordance with absolute values may lead to misinterpretation of CBC data. Current Interpretive Data was last revised on 2017. Lymphocyte pct 12.3 % [facility] Comment: Interpretive Data Percent cell count reference ranges are not reported, since discordance with absolute values may lead to misinterpretation of CBC data. Current Interpretive Data was last revised on 2017. Monocyte pct 7.3 % [facility] Comment: Interpretive Data Percent cell count reference ranges are not reported, since discordance with absolute values may lead to misinterpretation of CBC data. Current Interpretive Data was last revised on 2017. Eosinophil pct 0.8 % [facility] Comment: Interpretive Data Percent cell count reference ranges are not reported, since discordance with absolute values may lead to misinterpretation of CBC data. Current Interpretive Data was last revised on 2017. Basophil pct 0.4 % [facility] Comment: Interpretive Data Percent cell count reference ranges are not reported, since discordance with absolute values may lead to misinterpretation of CBC data. Current Interpretive Data was last revised on 2017. Blood 04/10/2024 11:4 1 PM [employer] LAB[employer]ER 04/10/2024 11:54 PM [employer] LAB[employer]ER Sumit Baptiste MD LAB BLOOD ORDERABLES Kenna vitaly Result [facility] One [facility] Department [place] [address] * Respiratory pathogen panel Nasopharyngeal (04/10/2024 11:41 PM P[employer] LABORER) Pathologist [facility] Influenza A RNA Not Detected Not Detected Influenza B RNA Not Detected Not Detected [facility] RSV RNA Not Detected Not Detected [facility] COVID-19 RNA Not Detected Not Detected [facility] Coronavirus 229E RNA Not Detected Not Detected [facility] Coronavirus HKU1 RNA Not Detected Not Detected [facility] Coronavirus NL63 RNA Not Detected Not Detected [facility] Coronavirus OC43 RNA Not Detected Not Detected [facility] Adenovirus DNA Not Detected Not Detected [facility] Metapneumovirus RNA Not Detected Not Detected [facility] Rhinovirus/Enterov irus RNA Not Detected Not Detected [facility] Parainfluenza 1 RNA Not Detected Not Detected [facility] Parainfluenza 2 RNA Not Detected Not Detected [facility] Parainfluenza 3 RNA Not Detected Not Detected [facility] Parainfluenza 4 RNA Not Detected Not Detected [facility] B. pertussis DNA Not Detected Not Detected [facility] B. parapertussis DNA Not Detected Not Detected [facility] C. pneumoniae DNA Not Detected Not Detected [facility] M. pneumoniae DNA Not Detected Not Detected [facility] Nasopharyngeal 04/10/2024 11 :41 PM [employer] LAB[employer]ER 04/11/2024 12:16 AM [employer] LOT LABORER Narrative [facility] - 04/11/2024 1:23 AM [employer] LABORER Is the Patient experiencing symptoms consistent with COVID?->Unknown Surveillance testing for transplant patient?->No Interpretive Data The StudySoup FilmArray Respiratory Panel (RP2.1) assay is a [...] assay has FDA clearance for testing of TAILINGS MAN swabs. The performance of additional specimen types has been assessed by the performing laboratory. The performance characteristics of this assay have been determined by [facility]. Current interpretive data was last revised on 21. us Prerak Bhavesh Medina MD LAB MICROBIOLOGY - GEN ERAL ORDERABLES Final Result [facility]ER[facility] One [facility] Department [place] [address] * (ABNORMAL) CBC with auto differential (04/10/2024 11:41 PM [employer] LABORER) WBC 13.1(H) 3.8 - 9.9 K/cumm Hgb 9.8(L) 13.0 - 17.5 g/dL [facility] Hct 30.3(L) 38.9 - 50.3 % [facility] Plt 272 150 - 400 K/cumm [facility] MPV 11.5 9.1 - 12.3 fL [facility] RBC 3.21(L) 4.30 - 5.80 M/cumm [facility] MCV 94.4 81.3 - 96.4 fL [facility] MCH 30.5 27.1 - 33.3 pg [facility] MCHC 32.3 32.3 - 35.7 g/dL [facility] RDW CV 15.8(H) 11.1 - 14.9 % [facility] RDW SD 54.0(H) 35.7 - 48.1 fL [facility] NRBC abs 0.00 0.00 - 0.01 K/cumm [facility] Blood 04/10/2024 11:4 1 PM [employer]ER 04/10/2024 11:54 PM [employer] LABORER us Olu Collins MD LAB BLOOD ORDERABLES Final Re sult [facility] One [facility] Department [place] [address] * Blood culture Blood (04/10/2024 11:41 PM [employer] LABORER) Pathologist [facility] Report Final Report: No growth Blood 04/10/2024 11:4 1 PM [employer] LAB[employer]ER 04/11/2024 1:59 AM [employer] LABORER Narrative [facility] - 04/15/2024 7:01 AM [employer] LABORER Collection->Peripheral 1. Blood cultures are incubated for [...] performance characteristics have been verified by the [facility]. For questions about this culture, contact the Microbiology Laboratory at [phone]. Interpretive data was last revised on 23. us Prerak Bhavesh Medina MD LAB MICROBIOLOGY - GEN ERAL ORDERABLES Final Result [facility] One [facility] Department [place] [address] * Blood culture Blood (04/10/2024 11:41 PM [employer] LABORER) Report Final Report: No growth Blood 04/10/2024 11:4 1 PM [employer] LAB[employer]ER 04/11/2024 1:59 AM [employer] LABORER Narrative [facility] - 04/15/2024 7:01 AM [employer] LABORER Collection->Peripheral 1. Blood cultures are incubated for [...] performance characteristics have been verified by the [facility]. For questions about this culture, contact the Microbiology Laboratory at [phone]. Interpretive data was last revised on 23. Roberto eMdina MD LAB MICROBIOLOGY - GEN ERAL ORDERABLES Final Result Performing Organization Address City/[facility]/ZIP Co de Phone Number [facility] Department [place] [address] * TSH (04/10/2024 11:41 PM [employer] LABORER) Thyroid Stimulating Hormone 3.20 0.30 - 4.20 mcIUnit/mL Blood 04/10/2024 11:4 1 PM [employer] LAB[employer]ER 04/10/2024 11:55 PM [employer] LAB[employer]ER Olu Collins MD LAB BLOOD ORDERABLES Final Re sult Performing Organization Address City/[facility] Co de Phone Number [facility] Department [place] [address] * Cholesterol, LDL, direct (04/10/2024 11:41 PM [employer] LABORER) LDL Cholesterol, Direct 41 <=129 mg/dL Comment: [...] on 2017. Blood 04/10/2024 11:4 1 PM [employer] LAB[employer]ER 04/10/2024 11:55 PM [employer] [employer] LABORER Narrative [facility] - 04/11/2024 6:09 PM [employer] [employer] LABORER Cholesterol, LDL, direct reflexed based on Elevated Triglyceride (>400) us Nicole Boo MD LAB BLOOD ORDERABLES Final Result Performing Organization Address [facility] de Phone Number [facility] [place] [address] * (ABNORMAL) Hemoglobin A1c (04/10/2024 11:41 PM [employer] LABORER) Pathologist [facility] Hgb A1C 7.0(H) 4.0 - 5.6 % Estimated Average Glucose 154 mg/dL [facility] Comment: The ADA recommends reporting an estimated Average Glucose (eAG) with all Hemoglobin A1c results using the equation derived from a study of 507 normal and diabetic adults. Minority populations were underrepresented and children were not included. (Diabetes Care 2020; 43(S1): S66-S76). The eAG is not equivalent to a fasting glucose. Blood 04/10/2024 11:4 1 PM [employer] LAB[employer]ER 04/10/2024 11:57 PM [employer] LAB[employer]ER Saul Engle MD LAB BLOOD ORDERABLES Final Resul t Performing Organization Address [facility] Co de Phone Number [facility] [place] [address] * (ABNORMAL) Lipid panel (04/10/2024 11:41 PM [employer] LABORER) Pathologist [facility] Cholesterol 145 30 - 199 mg/dL Comment: [...] revised on 2017. Triglycerides 453(H) <=149 mg/dL [facility] Comment: Interpretive Data Ages < or = [...] revised on 2017. HDL 22(L) >=40 mg/dL [facility] Comment: Interpretive Data Ages < or = [...] on 2017. LDL, calculated See Comment <=129 [facility] Comment: Unable to calculate LDL due to [...] revised on 2023. Non-HDL Cholesterol 123 mg/dL [facility] Comment: Interpretive Data Ages < or = [...] last revised on 2017. Chol/HDL ratio 7 [facility] Blood 04/10/2024 11:4 1 PM [employer] LAB[employer]ER 04/10/2024 11:55 PM [employer] LAB[employer]ER Nicole Boo MD LAB BLOOD ORDERABLES Final Result [facility] One [facility] Department [place] [address] * (ABNORMAL) Comprehensive metabolic panel (04/10/2024 11:41 PM [employer]ORER) Sodium 141 135 - 145 mmol/L Potassium, pl 3.4 3.3 - 4.9 mmol/L [facility] Chloride 98 97 - 110 mmol/L [facility] CO2 27 22 - 32 mmol/L [facility] Anion gap 16(H) 2 - 15 mmol/L [facility] BUN 45(H) 6 - 25 mg/dL [facility] Creatinine 10.90(H) 0.80 - 1.30 mg/dL [facility] Glucose 240(H) 70 - 199 mg/dL [facility] Comment: Interpretive Data Fasting glucose >/= 126 [...] Calcium 9.2 8.5 - 10.3 mg/dL [facility] Bilirubin, total 0.2 0.1 - 1.2 mg/dL [facility] Protein, pl 6.5 6.5 - 8.5 g/dL [facility] Albumin 3.1(L) 3.5 - 5.0 g/dL [facility] Alk phos 64 40 - 130 Units/L [facility] ALT 26 7 - 55 Units/L [facility] AST 30 10 - 50 Units/L [facility] Blood 04/10/2024 11:4 1 PM [employer] [employer] 04/10/2024 11:55 PM [employer] [employer] Olu Collins MD LAB BLOOD ORDERABLES Final Re sult [facility] Department [place] [address] * (ABNORMAL) ECG 12-LEAD (04/10/2024 11:15 PM [employer] [employer]) Narrative [facility] - 04/10/2024 11:15 PM [employer] [employer] Mario Alberto Cornelius MD 04/10/2024 11:17 PM [...] Olu Collins MD ECG ORDERABLES Final Result [facility] * OCT, Retina - OU - Both Eyes (03/09/2024 2:00 PM [employer]) Central Macular Thickness OS 227 micrometers CONTINUUM Central Macular Thickness OD 479 micrometers CONTINUUM Anatomical Region Laterality Modality Head Optical Coherenc e Tomography Narrative 03/16/2024 12:53 PM [employer] [employer] Right Eye Quality was good. Scan locations [...] Advance Directives For more information, please contact: [phone] * Full Code (Latest Code Status on [...] 3:52 PM 06/08/2021 9:56 PM Care Teams Long Term Care Social Worker Relationship Specialty Start Date End Date Jeff Strickland MD [address] [address] PCP - General Family Medicine 04/02/18 Chan Nicholas MD [address] [address] Consulting Physician Gastroenterology 11/24/18 Alan Mccall MD [address] [address] Referring Physician Nephrology 11/24/18 Pepito Haro MD PhD [address] [place] [address] Consulting Physician Neurosurgery 12/03/22 Solange Guido MD [address] [facility] [address] [place] [address] Referring Physician Cardiovascular Disease 07/23/23
--- OUTSIDE RECORDS SUMMARY | 2024-05-07 13:11 | XMS_ITS | Encounter Summary ---
Author Organization [facility] Address [facility] [address] Care Team Providers Care Sash Sticker Name Role Phone Deandre Bojorquez MD Unavailable Jeff Strickland MD Primary Care Provider [phone] Encounter Details Date Type Department Care Team (Late st Contact Info) Description 09/30/2023 Lab Requisition [facility] [address] [place] [id number] Alan Davenport MD [facility] OF [facility] [place] [address] Social History Tobacco Use Types Packs/Day Years [...] AM CDT Appointment [facility] [address] [place] [phone] Alan Davenport MD [address] OF [facility] [place] [address] 06/16/2024 11:00 AM CDT Appointment [facility] [address] [place] [phone] Alan Davenport MD [address] DIV OF [facility] [place] [address] 06/16/2024 12:20 PM CDT Appointment [facility] CAT SCAN [facility] [place] [address] Alan Davenport MD [address] DIV OF [facility] [place] [address] 06/16/2024 1:00 PM CDT Appointment [facility] ECHO [address] [place] [address] Alan Davenport MD [address] DIV OF [facility] [place] [address] 06/16/2024 2:00 PM CDT Appointment [facility] US [address] [place] [address] Alan Davenport MD [address] DIV OF [facility] [place] [address] 06/16/2024 2:45 PM CDT Appointment [facility] DIAGNOSTIC RAD OP [address] [place] [address] Alan Davenport MD [address] [facility] [facility] [place] [address] 06/16/2024 2:50 PM CDT Appointment [facility] OP DRAW STATION [address] [place] [address] Alan Davenport MD [address] [facility] [facility] [place] [address] 06/23/2024 1:00 PM CDT Clinical Support [facility] [address] [place] [address] 08/04/2024 11:30 AM CDT Appointment [facility] MRI [facility] [place] [address] Thomas Mendoza MD [address] [facility] [address] [place] [address] 08/04/2024 1:30 PM CDT Office Visit [facility] - Urology [address] [place] [phone] Thomas Mendoza MD [facility] [facility] [address] [place] [address] documented as of this encounter Procedures Procedure Name Priority Date/Time Associated Diagnosis Comments HOLD HLA SPECIMEN Routine 09/24/2023 3:2 7 PM CDT documented in this encounter Results * HOLD HLA SPECIMEN (09/24/2023 3:27 PM CDT) Hold HLA Specimen 09/30/2023 4:32 PM CDT [facility] Comment:The Hold HLA specime n has been received into the lab and will be held for 5 years at 4 degrees. Blood BLOOD SPECIMEN / Unknown 09/24/2023 3:27 PM CDT 09/30/2023 3:27 PM CDT Alan Davenport MD LAB - BLOOD BANK ORD ERABLES [facility] [address] [place] [address] documented in this encounter Visit Diagnoses Not on filedocumented in this encounter Care Teams Sash Sticker Relationship Specialty Start Date End Date Jeff Strickland MD [address] [place] [address] PCP - General 03/05/18 [place] [address] [place] [address] Orthopedic Surgery 03/28/17 documented as of this encounter
--- OUTSIDE RECORDS SUMMARY | 2024-05-07 13:11 | XMS_ITS | Referral Summary ---
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 Final Result Performing Organization Address [facility] Co de Phone Number [facility] [place] [address] * Aerobic and anaerobic culture and gram stain Peritoneal dialysis fluid Peritoneum (04/11/2024 3:51 AM SUPERVISOR MATRIX) Direct Specimen Exam Stain: Cytospin Gram stain shows: Rare polymorphonuclear leukocytes seen. Other cellular material present. No organisms seen. Report Final Report: No growth [facility] Peritoneal dialysis fluid (Peritoneum) 04/11/2024 3:51 AM SUPERVISOR MATRIX 04/11/2024 6:13 AM SUPERVISOR MATRIX Narrative [facility] - 04/17/2024 12:22 PM SUPERVISOR MATRIX Fluid specimen received. Testing performed by [facility] ([phone]) Specimens submitted from normally sterile body sites [...] ORDER MICHELLE Final Result Performing Organization Address City/[facility]/ZIP Co de Phone Number [facility] Department [place] [address] * (ABNORMAL) POCT glucose (04/11/2024 3:43 AM SUPERVISOR MATRIX) Pathologist [facility] Glucose, POC 223(H) 70 - 199 mg/dL Blood 04/11/2024 3:43 AM SUPERVISOR MATRIX 04/11/2024 3:43 AM SUPERVISOR MATRIX Saul Engle MD LAB POCT ORDERABLES - DEVICE Fin al Result [facility] Department [place] [address] * (ABNORMAL) Troponin I high-sensitivity 4-hour (04/11/2024 3:41 AM SUPERVISOR MATRIX) Pathologist [facility] Trop I hs 192(H) <=35 ng/L Comment: Interpretive Data For further hscTnI resources including the diagnostic algorithm and an aid in interpretation, copy and paste this link: https://bjhlab.testcatalog.org/show/hsTrop-1 Current Interpretive Data last revised 2019. Trop I hs pct delta -14 % [facility] Trop I hs interp Equivocal [facility] Blood 04/11/2024 3:41 AM SUPERVISOR MATRIX 04/11/2024 4:09 AM SUPERVISOR MATRIX Roberto Medina MD LAB BLOOD ORDERABLES F inal Result Performing Organization Address [facility] de Phone Number [facility] [place] [address] * Sepsis Lactate w/ Reflex (04/11/2024 3:41 AM SUPERVISOR MATRIX) Sepsis Lactate 2.0 0.7 - 2.0 mmol/L Blood 04/11/2024 3:41 AM SUPERVISOR MATRIX 04/11/2024 3:48 AM SUPERVISOR MATRIX Roberto Medina MD LAB BLOOD ORDERABLES F inal Result Performing Organization Address [facility] de Phone Number [facility] [place] [address] * CT Abdomen Pelvis W Contrast (04/11/2024 2:21 AM SUPERVISOR MATRIX) Anatomical Region Laterality Modality Body N/A Computed Tomogra phy 04/11/2024 2:42 AM SUPERVISOR MATRIX Impressions 04/11/2024 1:21 PM SUPERVISOR MATRIX 1. Peritoneal dialysis catheter in place with [...] Wallace Mederos M.D. Narrative 04/11/2024 1:21 PM SUPERVISOR MATRIX EXAMINATION: Computed tomography of the abdomen and [...] Result * ECG 12-LEAD (04/11/2024 1:52 AM SUPERVISOR MATRIX) Narrative [facility] - 04/11/2024 1:52 AM SUPERVISOR MATRIX Olu Collins MD 04/11/2024 1:54 AM ECG [...] ECG ORDERABLES Final Result Performing Organization Address [facility] Co de Phone Number [facility] * (ABNORMAL) Troponin I high-sensitivity 2-hour (04/11/2024 1:48 AM SUPERVISOR MATRIX) Trop I hs 214(C) <=35 ng/L Comment: Previous critical value noted within 48 hours ago. Interpretive Data For further [facility] resources including the diagnostic algorithm and an aid in interpretation, copy and paste this link: https://bjhlab.testcatalog.org/show/hsTrop-1 Current Interpretive Data last revised 2019. Trop I hs pct delta -4 % [facility] Trop I hs interp Insignificant [facility] Blood 04/11/2024 1:48 AM SUPERVISOR MATRIX 04/11/2024 2:01 AM SUPERVISOR MATRIX Roberto Medina MD LAB BLOOD ORDERABLES F inal Result [facility] Department [place] [address] * [place] CRITICAL CARE ILL/INJURED PATIENT INIT 30-74 MIN (04/11/2024 1:29 AM SUPERVISOR MATRIX) Narrative Olu Collins MD - 04/11/2024 1:29 AM SUPERVISOR MATRIX Olu Collins MD 04/11/2024 5:14 AM Critical [...] Chest 1 Vw Portable (04/11/2024 1:01 AM SUPERVISOR MATRIX) Anatomical Region Laterality Modality Body, Chest N/A Computed Radiogr aphy 04/11/2024 1:48 AM SUPERVISOR MATRIX Impressions 04/11/2024 1:25 PM SUPERVISOR MATRIX Comparison to 04/11/2024 No pneumothorax. Small lung [...] Wallace Mederos M.D. Narrative 04/11/2024 1:25 PM SUPERVISOR MATRIX EXAMINATION: 1 view chest radiograph Procedure Note [...] Sepsis Lactate w/ Reflex (04/11/2024 12:17 AM SUPERVISOR MATRIX) Sepsis Lactate 2.4(H) 0.7 - 2.0 mmol/L Blood 04/11/2024 12:1 7 AM SUPERVISOR MATRIX 04/11/2024 12:22 AM SUPERVISOR MATRIX us Prerak Bhaveshlala Medina MD LAB BLOOD ORDERABLES F inal Result [facility] Department [place] [address] * (ABNORMAL) Troponin I high-sensitivity series (baseline, 2hr, 4hr, 6hr) (04/10/2024 11:41 PM SUPERVISOR MATRIX) Trop I hs 223(C) <=35 ng/L Comment: Reviewed Interpretive Data For further hscTnI resources including the diagnostic algorithm and an aid in interpretation, copy and paste this link: https://bjhlab.testcatalog.org/show/hsTrop-1 Current Interpretive Data last revised 2019. Blood 04/10/2024 11:4 1 PM SUPERVISOR MATRIX 04/10/2024 11:54 PM SUPERVISOR MATRIX us Prerak Bhavesh Adam MD LAB BLOOD ORDERABLES F inal Result Performing Organization Address City/[facility]/ZIP Co de Phone [facility] [place] [address] * Critical result callback Cardio chemistry (04/10/2024 11:41 PM SUPERVISOR MATRIX) Date Notified [id number] Time Notified 108 KERRI SIMPSON Test name Trop I hs KERRI SIMPSON Called/Read Back Olu SIMPSON Credentials MD KERRI SIMPSON Called By SB [facility] SIMPSON Blood 04/10/2024 11:4 1 PM SUPERVISOR MATRIX 04/10/2024 11:54 PM SUPERVISOR MATRIX Premat Medina MD LAB BLOOD ORDERABLES F inal Result Performing Organization Address [facility] Co de Phone Number [facility] [place] [address] * (ABNORMAL) eGFR (04/10/2024 11:41 PM SUPERVISOR MATRIX) eGFR 5(L) >=60 mL/min/1. 73 m2 Comment: [...] reviewed 2020. Blood 04/10/2024 11:4 1 PM SUPERVISOR MATRIX 04/10/2024 11:55 PM SUPERVISOR MATRIX Sumit Baptiste MD LAB BLOOD ORDERABLES Kenna haider Result [facility] Department [place] [address] * (ABNORMAL) Differential, auto (04/10/2024 11:41 PM SUPERVISOR MATRIX) Neutrophil abs 9.3(H) 1.5 - 6.5 K/cumm Imm gran abs 1.1(H) 0.0 - 0.1 K/cumm [facility] Lymphocyte abs 1.6 0.8 - 3.3 K/cumm [facility] Monocyte abs 1.0(H) 0.2 - 0.8 K/cumm [facility] Eosinophil abs 0.1 0.0 - 0.5 K/cumm [facility] Basophil abs 0.1 0.0 - 0.1 K/cumm [facility] Neutrophil pct 71.0 % [facility] Comment: Confirmed by smear review Interpretive Data Percent cell count reference ranges are not reported, since discordance with absolute values may lead to misinterpretation of CBC data. Current Interpretive Data was last revised on 2017. Imm gran pct 8.2 % [facility] Comment: Interpretive Data Percent cell count reference ranges are not reported, since discordance with absolute values may lead to misinterpretation of CBC data. Current Interpretive Data was last revised on 2017. Lymphocyte pct 12.3 % [facility] Comment: Interpretive Data Percent cell count reference ranges are not reported, since discordance with absolute values may lead to misinterpretation of CBC data. Current Interpretive Data was last revised on 2017. Monocyte pct 7.3 % [facility] Comment: Interpretive Data Percent cell count reference ranges are not reported, since discordance with absolute values may lead to misinterpretation of CBC data. Current Interpretive Data was last revised on 2017. Eosinophil pct 0.8 % [facility] Comment: Interpretive Data Percent cell count reference ranges are not reported, since discordance with absolute values may lead to misinterpretation of CBC data. Current Interpretive Data was last revised on 2017. Basophil pct 0.4 % [facility] Comment: Interpretive Data Percent cell count reference ranges are not reported, since discordance with absolute values may lead to misinterpretation of CBC data. Current Interpretive Data was last revised on 2017. Blood 04/10/2024 11:4 1 PM SUPERVISOR MATRIX 04/10/2024 11:54 PM SUPERVISOR MATRIX Sumit Baptiste MD LAB BLOOD ORDERABLES Kenna haider Result [facility] Department [place] [address] * Respiratory pathogen panel Nasopharyngeal (04/10/2024 11:41 PM SUPERVISOR MATRIX) Pathologist [facility] Influenza A RNA Not Detected Not Detected Influenza B RNA Not Detected Not Detected [facility] RSV RNA Not Detected Not Detected [facility] COVID-19 RNA Not Detected Not Detected [facility] Coronavirus 229E RNA Not Detected Not Detected [facility] Coronavirus HKU1 RNA Not Detected Not Detected [facility] Coronavirus NL63 RNA Not Detected Not Detected [facility] Coronavirus OC43 RNA Not Detected Not Detected [facility] Adenovirus DNA Not Detected Not Detected [facility] Metapneumovirus RNA Not Detected Not Detected [facility] Rhinovirus/Enterov irus RNA Not Detected Not Detected [facility] Parainfluenza 1 RNA Not Detected Not Detected [facility] Parainfluenza 2 RNA Not Detected Not Detected [facility] Parainfluenza 3 RNA Not Detected Not Detected [facility] Parainfluenza 4 RNA Not Detected Not Detected [facility] B. pertussis DNA Not Detected Not Detected [facility] B. parapertussis DNA Not Detected Not Detected [facility] C. pneumoniae DNA Not Detected Not Detected [facility] M. pneumoniae DNA Not Detected Not Detected [facility] Nasopharyngeal 04/10/2024 11 :41 PM SUPERVISOR MATRIX 04/11/2024 12:16 AM SUPERVISOR MATRIX Narrative [facility] - 04/11/2024 1:23 AM SUPERVISOR MATRIX Is the Patient experiencing symptoms consistent with COVID?->Unknown Surveillance testing for transplant patient?->No Interpretive Data The [employer] FilmArray Respiratory Panel (RP2.1) assay is a [...] assay has FDA clearance for testing of TALKBACK HOST swabs. The performance of additional specimen types has been assessed by the performing laboratory. The performance characteristics of this assay have been determined by [facility] Molecular Infectious Disease Laboratory. Current interpretive data was last revised on 21. us Roberto Medina MD LAB MICROBIOLOGY - GEN ERAL ORDERABLES Final Result [facility] Department [place] [address] * (ABNORMAL) CBC with auto differential (04/10/2024 11:41 PM SUPERVISOR MATRIX) WBC 13.1(H) 3.8 - 9.9 K/cumm Hgb 9.8(L) 13.0 - 17.5 g/dL [facility] Hct 30.3(L) 38.9 - 50.3 % [facility] Plt 272 150 - 400 K/cumm [facility] MPV 11.5 9.1 - 12.3 fL [facility] RBC 3.21(L) 4.30 - 5.80 M/cumm [facility] MCV 94.4 81.3 - 96.4 fL [facility] MCH 30.5 27.1 - 33.3 pg [facility] MCHC 32.3 32.3 - 35.7 g/dL [facility] RDW CV 15.8(H) 11.1 - 14.9 % [facility] RDW SD 54.0(H) 35.7 - 48.1 fL [facility] NRBC abs 0.00 0.00 - 0.01 K/cumm [facility] Blood 04/10/2024 11:4 1 PM SUPERVISOR MATRIX 04/10/2024 11:54 PM SUPERVISOR MATRIX us Olu Collins MD LAB BLOOD ORDERABLES Final Re sult [facility] [place] [address] * Blood culture Blood (04/10/2024 11:41 PM SUPERVISOR MATRIX) Report Final Report: No growth Blood 04/10/2024 11:4 1 PM SUPERVISOR MATRIX 04/11/2024 1:59 AM SUPERVISOR MATRIX Narrative [facility] - 04/15/2024 7:01 AM SUPERVISOR MATRIX Collection->Peripheral 1. Blood cultures are incubated for [...] performance characteristics have been verified by the [facility]. For questions about this culture, contact the Microbiology Laboratory at [phone]. Interpretive data was last revised on 23. us Prerak Bhavesh Medina MD LAB MICROBIOLOGY - GEN ERAL ORDERABLES Final Result [facility] Department [place] [address] * Blood culture Blood (04/10/2024 11:41 PM SUPERVISOR MATRIX) Report Final Report: No growth Blood 04/10/2024 11:4 1 PM SUPERVISOR MATRIX 04/11/2024 1:59 AM SUPERVISOR MATRIX Narrative [facility] - 04/15/2024 7:01 AM SUPERVISOR MATRIX Collection->Peripheral 1. Blood cultures are incubated for [...] performance characteristics have been verified by the [facility]. For questions about this culture, contact the Microbiology Laboratory at [phone]. Interpretive data was last revised on 23. Roberto Medina MD LAB MICROBIOLOGY - GEN ERAL ORDERABLES Final Result Performing Organization Address [facility] Co de Phone Number [facility] Department [place] [address] * TSH (04/10/2024 11:41 PM SUPERVISOR MATRIX) Thyroid Stimulating Hormone 3.20 0.30 - 4.20 mcIUnit/mL Blood 04/10/2024 11:4 1 PM SUPERVISOR MATRIX 04/10/2024 11:55 PM SUPERVISOR MATRIX Olu Collins MD LAB BLOOD ORDERABLES Final Re sult Performing Organization Address [facility] de Phone Number [facility] Department [place] [address] * Cholesterol, LDL, direct (04/10/2024 11:41 PM SUPERVISOR MATRIX) LDL Cholesterol, Direct 41 <=129 mg/dL Comment: [...] on 2017. Blood 04/10/2024 11:4 1 PM SUPERVISOR MATRIX 04/10/2024 11:55 PM SUPERVISOR MATRIX Narrative [facility] - 04/11/2024 6:09 PM SUPERVISOR MATRIX Cholesterol, LDL, direct reflexed based on Elevated Triglyceride (>400) Nicole Boo MD LAB BLOOD ORDERABLES Final Result Performing Organization Address City/[facility]/ZIP Co de Phone Number [facility] Department [address] [place] [address] * (ABNORMAL) Hemoglobin A1c (04/10/2024 11:41 PM SUPERVISOR MATRIX) [facility] Hgb A1C 7.0(H) 4.0 - 5.6 % Estimated Average Glucose 154 mg/dL [facility] Comment: The ADA recommends reporting an estimated Average Glucose (eAG) with all Hemoglobin A1c results using the equation derived from a study of 507 normal and diabetic adults. Minority populations were underrepresented and children were not included. (Diabetes Care 2020; 43(S1): S66-S76). The eAG is not equivalent to a fasting glucose. Blood 04/10/2024 11:4 1 PM SUPERVISOR MATRIX 04/10/2024 11:57 PM SUPERVISOR MATRIX us Saul Engle MD LAB BLOOD ORDERABLES Final Resul t [facility] [address] [place] [address] * (ABNORMAL) Lipid panel (04/10/2024 11:41 PM SUPERVISOR MATRIX) [facility] Cholesterol 145 30 - 199 mg/dL [...] on 2017. Triglycerides 453(H) <=149 mg/dL [facility] Comment: Interpretive Data Ages < or [...] on 2017. HDL 22(L) >=40 mg/dL [facility] Comment: Interpretive Data Ages < or [...] 2017. LDL, calculated See Comment <=129 [facility] Comment: Unable to calculate LDL due [...] on 2023. Non-HDL Cholesterol 123 mg/dL [facility] Comment: Interpretive Data Ages < or [...] revised on 2017. Chol/HDL ratio 7 [facility] Blood 04/10/2024 11:4 1 PM SUPERVISOR MATRIX 04/10/2024 11:55 PM SUPERVISOR MATRIX Nicole Boo MD LAB BLOOD ORDERABLES Final Result [facility] Department [place] [address] * (ABNORMAL) Comprehensive metabolic panel (04/10/2024 11:41 PM SUPERVISOR MATRIX) Sodium 141 135 - 145 mmol/L Potassium, pl 3.4 3.3 - 4.9 mmol/L [facility] Chloride 98 97 - 110 mmol/L [facility] CO2 27 22 - 32 mmol/L [facility] Anion gap 16(H) 2 - 15 mmol/L [facility] BUN 45(H) 6 - 25 mg/dL [facility] Creatinine 10.90(H) 0.80 - 1.30 mg/dL [facility] Glucose 240(H) 70 - 199 mg/dL [facility] Comment: Interpretive Data Fasting glucose >/= [...] 2022. Calcium 9.2 8.5 - 10.3 mg/dL [facility] Bilirubin, total 0.2 0.1 - 1.2 mg/dL [facility] Protein, pl 6.5 6.5 - 8.5 g/dL [facility] Albumin 3.1(L) 3.5 - 5.0 g/dL [facility] Alk phos 64 40 - 130 Units/L [facility] ALT 26 7 - 55 Units/L [facility] AST 30 10 - 50 Units/L [facility] Blood 04/10/2024 11:4 1 PM SUPERVISOR MATRIX 04/10/2024 11:55 PM SUPERVISOR MATRIX Olu Collins MD LAB BLOOD ORDERABLES Final Re sult [facility] [place] [address] * (ABNORMAL) ECG 12-LEAD (04/10/2024 11:15 PM SUPERVISOR MATRIX) Narrative [facility] - 04/10/2024 11:15 PM SUPERVISOR MATRIX Mario Alberto Cornelius MD 04/10/2024 11:17 PM ECG 12 lead Date/Time: 04/10/2024 11:15 PM Performed by: Mario Albreto Cornelius MD Authorized by: Sumit Baptiste MD [...] the ED Mario Alberto Cornelius MD 04/10/24 0444 us Olu Collins MD ECG ORDERABLES Final Result [facility] * OCT, Retina - OU - Both Eyes (03/09/2024 2:00 PM SUPERVISOR MATRIX) Central Macular Thickness OS 227 micrometers CONTINUUM Central Macular Thickness OD 479 micrometers CONTINUUM Anatomical Region Laterality Modality Head [employer] Coheren[facility] e Tomography Narrative 03/16/2024 12:53 PM SUPERVISOR MATRIX Right Eye Quality was good. Scan locations included subfoveal. Progression has improved. Macular thickness was 479 micrometers. Left Eye Quality was good. Scan locations included subfoveal. Progression has been stable. Macular thickness was 227 micrometers. Notes OD - ERM, CME continues to improve OS - flat Sera Villanueva MD OPHTH TOMOGRAPHY Fi nal Result from Last 3 Months Insurance [facility] MEDICARE [facility] MEDICARE [employer] MEDICARE Advance Directives For more information, please contact: [phone] * Full Code (Latest Code Status on [...] 3:52 PM 06/08/2021 9:56 PM Care Teams Economics Consultant Relationship Specialty Start Date End Date Jeff Strickland MD [address] [facility] [address] [place] [address] PCP - General Family Medicine 04/02/18 Chan Nicholas MD [address] [place] [address] Consulting Physician Gastroenterology 11/24/18 Alan Mccall MD [address] [place] [address] Referring Physician Nephrology 11/24/18 Pepito Haro MD PhD [address] [place] [address] Consulting Physician Neurosurgery 12/03/22 Solange Guido MD [address] [facility] [address] [place] [address] Referring Physician Cardiovascular Disease 07/23/23
--- OUTSIDE RECORDS SUMMARY | 2024-05-07 13:12 | XMS_ITS | Clinical Summary ---
Author Organization [facility] Address [address] [place] [address] Phone Care Team Providers Care Commodity Buyer Name Role Phone Jeff Strickland MD Primary Care Provider [phone] Allergies No known active allergies Medications pantoprazole [...] tablet Take 112 mcg by mouth daily seo engineer. Active aspirin (ANGELLA) 325 mg tablet Take 325 mg by mouth daily. Active Vit C-Vit Z-Oxfvhp-JvOg-L utein (PRESERVISION) 226 mg-200 unit -5 mg-0.8 [...] Department Care Team Description 03/03/2024 2:05 PM MERCHANDISE APPRAISER Ancillary Procedure [facility] [address] [place] [address] Sergio Rivera MD Pain in [...] Comments Blood Pressure 167/77 02/04/2019 9:16 AM MERCHANDISE APPRAISER Pulse 64 02/04/2019 9:16 AM MERCHANDISE APPRAISER Temperature 36.5 C (97.7 F) 02/04/2019 9:16 AM MERCHANDISE APPRAISER Respiratory Rate 16 02/04/2019 9:16 AM MERCHANDISE APPRAISER Oxygen Saturation 97% 02/04/2019 9:16 AM MERCHANDISE APPRAISER Inhaled Oxygen Concentration - - Weight 113.4 kg (250 lb) 02/04/2019 9:16 AM MERCHANDISE APPRAISER Height 175.3 cm (5' 9 ) 02/04/2019 9:16 AM MERCHANDISE APPRAISER Body Mass Index 36.92 02/04/2019 9:16 AM MERCHANDISE APPRAISER Plan of Treatment Health Maintenance Due Date [...] 2+ VW BILAT Routine 03/03/2024 2:26 PM MERCHANDISE APPRAISER Pain in shoulder region, left Pain in shoulder region, right from Last 3 Months Results * XR SHOULDER 2+ VW BILAT (03/03/2024 2:26 PM MERCHANDISE APPRAISER) Anatomical Region Laterality Modality Upper Extremity Computed Radiogr aphy 03/03/2024 2:27 PM MERCHANDISE APPRAISER Impressions 03/03/2024 2:34 PM MERCHANDISE APPRAISER IMPRESSION: 1. 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 Narrative 03/03/2024 2:34 PM MERCHANDISE APPRAISER EXAM: XR SHOULDER 2+ VW BILAT DATE: [...] BCBS BLUE ACCESS/TRUE BLUE PPO Care Teams Commodity Buyer Relationship Specialty Start Date End Date Jeff Strickland MD [address] [facility] [address] [place] [address] PCP - General Family Practice 01/01/19
--- OUTSIDE RECORDS SUMMARY | 2024-05-07 13:12 | XMS_ITS | Encounter Summary ---
Author Organization [facility] Address [facility] [place] [address] Care Team Providers Care Team Psychologist Name Role Phone Deandre Bojorquez MD Unavailable [phone] Jeff Strickland MD Primary Care Provider Encounter Details Date Type Department Care Team (Late st Contact Info) Description 03/30/2024 Lab Requisition [facility] MAIN LAB [address] [place] [phone] Alan Davenport MD [facility] [place] [address] Social History Tobacco Use Types Packs/Day Years [...] Info) Description 06/16/2024 10:00 AM CDT Appointment [facility] NUCLEAR MEDICINE [address] [place] [address] Alan Davenport MD [address] DIV OF [facility] [place] [address] 06/16/2024 11:00 AM CDT Appointment [facility] NUCLEAR MEDICINE [address] [place] [address] Alan Davenport MD [address] DIV OF [facility] [place] [address] 06/16/2024 12:20 PM CDT Appointment [facility] CAT SCAN [facility] [place] [address] Alan Davenport MD [address] DIV OF [facility] [place] [address] 06/16/2024 1:00 PM CDT Appointment [facility] ECHO [address] [place] [address] Alan Davenport MD [address] DIV OF [facility] [place] [address] 06/16/2024 2:00 PM CDT Appointment [facility] US [address] [place] [address] Alan Davenport MD [address] DIV OF [facility] [place] [address] 06/16/2024 2:45 PM CDT Appointment [facility] DIAGNOSTIC RAD OP [address] [place] [address] Alan Davenport MD [address] [facility] [place] [address] 06/16/2024 2:50 PM CDT Appointment [facility] LAB OP DRAW STATION [address] [place] [address] Alan Davenport MD [address] [facility] DIV OF [facility] [place] [address] 06/23/2024 1:00 PM CDT Clinical Support [facility] TRANSPLANT [address] [place] [address] 08/04/2024 11:30 AM CDT Appointment [facility] MRI [address] [place] [address] Thomas Mendoza MD [address] [facility] 2L [place] [address] 08/04/2024 1:30 PM CDT Office Visit [facility] - Urology [address] [place] [phone] Thomas Mendoza MD [address] [place] [address] 2[address] [place] [address] documented as of this encounter Procedures Procedure Name Priority Date/Time Associated Diagnosis Comments HOLD HLA SPECIMEN Routine 03/25/2024 2:5 1 PM LOCAL ANNOUNCER documented in this encounter Results * HOLD HLA SPECIMEN (03/25/2024 2:51 PM LOCAL ANNOUNCER) Hold HLA Specimen 03/30/2024 4:01 PM LOCAL ANNOUNCER [facility]) Comment:The Hold HLA specime n has been received into the lab and will be held for 5 years at 4 degrees. Blood BLOOD SPECIMEN / Unknown 03/25/2024 2:51 PM LOCAL ANNOUNCER 03/30/2024 2:51 PM LOCAL ANNOUNCER Alan Davenport MD LAB - BLOOD BANK ORD ERABLES [facility] [address] [place] [address], [facility] documented in this encounter Visit Diagnoses Not on filedocumented in this encounter Care Teams Team Psychologist Relationship Specialty Start Date End Date Jeff Strickland MD [address] [place] [address] PCP - General 03/05/18 [place] [address] [place] [address] Orthopedic Surgery 03/28/17 documented as of this encounter
--- OUTSIDE RECORDS SUMMARY | 2024-05-07 13:12 | XMS_ITS | CONTINUITY OF CARE DOCUMENT ---
Author Name sally maxxtruong Address Unknown Organization [facility] Address [address] [facility] [address] [place] [address] Phone [phone] Care Team Providers Care Press Bucker Name Role Phone Jason Becerra MD Unavailable [phone] DONNIE WOOD MD Unavailable DONNIE WOOD MD Unavailable PROBLEMS Condition Status Date Provider Notes Cardiology examination active Jason Becerra MD Diastolic heart failure active Jason cooney MD Chest pain-type to be determined active Micky Becerra MD Fatigue active Jason Becerra MD Sleep apnea active Jason Becerra MD Edema active Jason Becerra MD Hypertension active ? Jason Becerra MD Hyperlipidemia active ? Jason Becerra MD Diabetes, Type 2 active ? Jason Becerra MD ENCOUNTERS Date Type Provider Location Encounter Diag nosis - In-person encounter Office Visit Jason Becerra MD [place] [facility] - In-person encounter Office Visit Jason Becerra MD [facility] [place] [facility] Fatigue - In-person encounter Office Visit Jason Becrera MD [facility] [place] [facility] Chest pain-type to be determined - In-person encounter Office Visit Jason Becerra MD [facility] Office - In-person encounter Office Visit Jason Becerra MD [place] [facility] Cardiology examinationDiabetes, Type 2HyperlipidemiaHypertens ionDiastolic heart [...] Amy haider weight E&M 261 [lb_av] Amy haidre height E&M 69 [in_i] Amy haider Body [...] LinkLogic 3.5-5.2 sodium, serum 141 mmol/L LinkLogic 218-773 3154/09/26 urea nitrogen/creatini ne ratio, serum 19 LinkLogic [...] Statu s: Monica oropeza: 2 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 Jason Becerra MD social history reviewed E&M revi ewed - no changes required Jason Becerra MD smoking status Never smoker Amy doan FAMILY HISTORY Family Member Condition First Degree Blood Relative No Known Fam steven History INSURANCE PROVIDERS Payer name Policy type / Coverage type Spring red libertarian ID AETNA CHOICE POS II Commercial insurance company [id number] ADVANCE DIRECTIVES Name Date POWER OF ELECTRONICS TECHNICIAN TREATMENT PLAN Date Name Performer Cardiology follow up Jason hernandez MD Cardiology follow up Jason hernandez MD Cardiology follow up Jason hernanedz MD Cardiology follow up Jason hernandez MD [...] BASIC METABOLIC PANE L W/EGFR DLCO - 10556 FRC - 41336 FVC - 36869 HISTORY OF PROCEDURES Procedure Date Procedure Name Provider Procedure Notes S tatus EKG Jason Becerra MD complete d Regadenoson, 4 units Jason Becerra MD completed Cardiolite, 2 units Jason Becerra MD completed SPECT Images Jason Becerra MD comple wendy Stress EKG Jason Becerra MD complete d FVC / MVV - 38991 Jason Becerra MD c ompleted BLOOD COUNT HEMOGLOBIN Jason Becerra MD completed FRC - 46077 Jason Becerra MD complet ed SpO2 w/o 6min walk/titration Jason Becerra MD completed DLCO - 34894 Jason nguyen DEMETRIS Becerra MD complete d
--- OUTSIDE RECORDS SUMMARY | 2024-05-07 13:12 | XMS_ITS | Encounter Summary ---
Author Organization [facility] Address [facility] [place] [address] Care Team Providers Care Apparel Patternmaker Name Role Phone Deandre Bojorquez MD Unavailable [phone] Jeff Strickland MD Primary Care Provider [phone] Encounter Details Date Type Department Care Team (Late st Contact Info) Description 05/29/2023 Lab Requisition [facility] MAIN LAB [address] [place] [phone] Alan Davenport MD [facility] [place] [address] Social History Tobacco Use Types Packs/Day Years [...] Info) Description 06/16/2024 10:00 AM CDT Appointment [facility] NUCLEAR MEDICINE [address] [place] [phone] Alan Davenport MD [address] DIV OF [facility] [place] [address] 06/16/2024 11:00 AM CDT Appointment [facility] NUCLEAR MEDICINE [address] [place] [phone] Alan Davenport MD [address] DIV OF [facility] [place] [address] 06/16/2024 12:20 PM CDT Appointment [facility] CAT SCAN [facility] [place] [address] Alan Davenport MD [address] DIV OF [facility] [place] [address] 06/16/2024 1:00 PM CDT Appointment [facility] ECHO [address] [place] [address] Alan Davenport MD [address] DIV OF [facility] [place] [address] 06/16/2024 2:00 PM CDT Appointment [facility] US [address] [place] [address] Alan Davenport MD [address] DIV OF [facility] [place] [address] 06/16/2024 2:45 PM CDT Appointment [facility] DIAGNOSTIC RAD OP [address] [place] [address] Alan Davenport MD [address] [facility] DIV OF [facility] [place] [address] 06/16/2024 2:50 PM CDT Appointment [facility] LAB OP DRAW STATION [address] [place] [address] Alan Davenport MD [address] [facility] DIV OF [facility] [place] [address] 06/23/2024 1:00 PM CDT Clinical Support [facility] TRANSPLANT [address] [place] [address] 08/04/2024 11:30 AM CDT Appointment [facility] MRI [address] [place] [address] Thomas Mendoza MD [address] [facility] 2L [place] [address] 08/04/2024 1:30 PM CDT Office Visit [facility] - Urology [address] [place] [phone] Thomas Mendoza MD [facility]5 [facility] 2L [place] [address] documented as of this encounter Procedures Procedure Name Priority Date/Time Associated Diagnosis Comments HOLD HLA SPECIMEN Routine 05/21/2023 9:2 4 AM CDT documented in this encounter Results * HOLD HLA SPECIMEN (05/21/2023 9:24 AM CDT) Hold HLA Specimen 05/29/2023 10:[address] [facility] Comment:The Hold HLA specime n has been received into the lab and will be held for 5 years at 4 degrees. Blood BLOOD SPECIMEN / Unknown 05/21/2023 9:24 AM CDT 05/29/2023 9:24 AM CDT Alan Davenport MD LAB - BLOOD BANK ORD ERABLES [facility] [address] [place] [address] documented in this encounter Visit Diagnoses Not on filedocumented in this encounter Care Teams Apparel Patternmaker Relationship Specialty Start Date End Date Jeff Strickland MD [address] [place] [address] PCP - General 03/05/18 [place] [address] [place] [address] Orthopedic Surgery 03/28/17 documented as of this encounter
--- OUTSIDE RECORDS SUMMARY | 2024-05-07 13:12 | XMS_ITS | Encounter Summary ---
Author Organization [facility] Address [facility] [place] [address] Care Team Providers Care Industrial Maintenance Millwright Name Role Phone Deandre Bojorquez MD Unavailable [phone] Jeff Strickland MD Primary Care Provider [phone] Encounter Details Date Type Department Care Team (Late st Contact Info) Description 04/10/2023 Lab Requisition [facility] MAIN LAB [address] [place] [phone] Alan Davenport MD [facility] [place] [address] Social History Tobacco Use Types Packs/Day Years [...] Info) Description 06/16/2024 10:00 AM CDT Appointment [facility] NUCLEAR MEDICINE [address] [place] [phone] Alan Davenport MD [address] DIV OF [facility] [place] [address] 06/16/2024 11:00 AM CDT Appointment [facility] NUCLEAR MEDICINE [address] [place] [phone] Alan Davenport MD [address] DIV OF [facility] [place] [address] 06/16/2024 12:20 PM CDT Appointment [facility] CAT SCAN [facility] [place] [address] Alan Davenport MD [address] DIV OF [facility] [place] [address] 06/16/2024 1:00 PM CDT Appointment [facility] ECHO [address] [place] [address] Alan Davenport MD [address] DIV OF [facility] [place] [address] 06/16/2024 2:00 PM CDT Appointment [facility] US [address] [place] [address] Alan Davenport MD [address] DIV OF [facility] [place] [address] 06/16/2024 2:45 PM CDT Appointment [facility] DIAGNOSTIC RAD OP [address] [place] [address] Alan Davenport MD [address] [facility] DIV [facility] [place] [address] 06/16/2024 2:50 PM CDT Appointment [facility] LAB OP DRAW STATION [address] [place] [address] Alan Davenport MD [address] [facility] DIV OF [facility] [place] [address] 06/23/2024 1:00 PM CDT Clinical Support [facility] TRANSPLANT [address] [place] [address] 08/04/2024 11:30 AM CDT Appointment [facility] MRI [facility] [place] [address] Thomas Mendoza MD [address] [facility] 2L [place] [address] 08/04/2024 1:30 PM CDT Office Visit [facility] Physician Group - Urology [address] [place] [phone] Thomas Mendoza MD [address] [place] [address] 2L [place] [address] documented as of this encounter Procedures Procedure Name Priority Date/Time Associated Diagnosis Comments HOLD HLA SPECIMEN Routine 04/02/2023 3:0 1 PM UTILITY BAGGER documented in this encounter Results * HOLD HLA SPECIMEN (04/02/2023 3:01 PM UTILITY BAGGER) Hold HLA Specimen 04/10/2023 4:01 PM UTILITY BAGGER [facility] ([facility]) Comment:The Hold HLA specime n has been received into the lab and will be held for 5 years at 4 degrees. Blood BLOOD SPECIMEN / Unknown 04/02/2023 3:01 PM UTILITY BAGGER 04/10/2023 3:01 PM UTILITY BAGGER Alan Davenport MD LAB - BLOOD BANK ORD ERABLES [facility] [address] [place] [address], [facility] documented in this encounter Visit Diagnoses Not on filedocumented in this encounter Care Teams Industrial Maintenance Millwright Relationship Specialty Start Date End Date Jeff Strickland MD [address] [place] [address] PCP - General 03/05/18 [place] [address] [place] [address] Orthopedic Surgery 03/28/17 documented as of this encounter
--- OUTSIDE RECORDS SUMMARY | 2024-05-07 13:12 | XMS_ITS | Clinical Summary ---
Author Organization [facility] Address [address], [place] [address] Phone Care Team Providers Care Cross Roller Name Role Phone Jeff Strickland MD Primary Care Provider [phone] Allergies No known active allergies Medications Medication [...] tablet 3 11/29/2019 Active Continuous Blood Gluc Business Development Analyst (FreeStyle Em [place]) device 1 each daily 12/01/2019 Active Continuous Blood Gluc Sensor (FreeStyle Em Sensor System) misc 1 each once every 2 weeks 12/01/2019 Active Lancets (OneTouch Delica Plus [id number]) misc OneTouch Delica Plus Lancet 33 gauge [...] 11/10/2019 Overview (12/17/2019): Kendall Carl 1955 Referring Forging Machine Operator: Alan Mccall Dialysis Info: NOD GFR 13 Type: Time: (Not currently on dialysis) days Blood Type: O NEG Body mass index is 37.36 kg/m . ALERTS Custom Motorcycle Painter: needs to establish Past Medical History: Diagnosis Date Arthropathy RA. Dr Strickland manages. CHF (congestive heart failure) 2 yrs ago [employer] Targeting Supervisor is Dr. Becerra in [place]. CKD (chronic kidney disease), stage V Community acquired pneumonia 2018 [facility] hospitalized. Diabetes mellitus 20 years. Lantus pen. Esophageal reflux takes med Hypercholesteremia 5-10 yrs meds Hypertension takes meds Hypothyroidism meds 20 years Kidney stones 5-6 years ago had 2 in the same year. Malignancy right kidney 2012 Obstructive sleep apnea 3 years. [facility]. Angela remember doctors name Renal cell [...] file Gets together: Not on file Attends orthodoxy service: Not on file Active member of [...] support system and appropriate discharge plan. Plan: precast worker to provide supportive services as needed. Patient appears to be a reasonable candidate for transplant from a psychosocial perspective. -Post transplant arrangement forms are needed prior to being listed. 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 [id number] Immunizations Name Administration Dates Next Due Influenza [...] (#1) 2023 9, 04/10/2016, 04/09/2016 Care Teams Cross Roller Relationship Specialty Start Date End Date Jeff Strickland MD [address] [place] [address] PCP - General Internal Medicine 07/15/18
--- OUTSIDE RECORDS SUMMARY | 2024-05-07 13:12 | XMS_ITS ---
Author Organization [facility] Address [address] [address] Care Team Providers Care Torch Heater Name Role Phone Deandre Bojorquez MD Unavailable [phone] Jeff Strickland MD Primary Care Provider [phone] Transplant Episode Kidney Candidate [facility] ([place], [place]) - [facility] Center waitlisted on 05/06/2022 Marked as Inactive on 12/19/2022 Reason: Temporarily too Sick Kidney CoordinatorSavanna Edwards RN Phone: N/A Fax: N/A Email: N/A Scores Score Value Updated Exceptions/Reas ons CPRA Not available EPTS (Calc) 95 05/07/2024 [place] Organ Diagnosis Organ Primary Contributory Kidney Diabetes Mellitus - Type II Hype rtensive Nephrosclerosis Care Team Name Role Phone Fax Email Savanna Edwards RN Kidney Coordinator N/A N/A N/A Alan Mccall MD Referring Physician N/A N/A N/A Anjali Mott LMSW Spiritual Advisor N/A N/A N/A Millie Lindquist Laborer Poultry Hatchery N/A N/A N/A Events Pre-Transplant Referred: 12/05/2021 Evaluation began: 12/13/2021 Committee: 05/02/2022 UNOS qualified: 01/17/2020 Center waitlisted: 05/06/2022 Dialysis History Dialysis History Start End Type Comments Center 01/17/2020 Peritoneal [facility] Information Center Phone Fax Address [facility] [phone] [address] [place] [phone]
--- OUTSIDE RECORDS SUMMARY | 2024-05-07 13:12 | XMS_ITS | Encounter Summary ---
Author Organization [facility] Address [facility] [address] Care Team Providers Care Metal Bonding Worker Name Role Phone Deandre Bojorquez MD Unavailable [phone] Jeff Strickland MD Primary Care Provider Encounter Details Date Type Department Care Team (Late st Contact Info) Description 04/29/2024 Lab Requisition [facility] MAIN LAB [address] [place] [phone] Alan Davenport MD [facility]1 [facility] OF [place] [address] Social History Tobacco Use Types Packs/Day Years [...] Info) Description 06/16/2024 10:00 AM CDT Appointment [facility] NUCLEAR MEDICINE [address] [place] [phone] Alan Davenport MD [address] DIV OF [facility] [place] [address] 06/16/2024 11:00 AM CDT Appointment [facility] NUCLEAR MEDICINE [address] [place] [phone] Alan Davenport MD [address] DIV OF [facility] [place] [address] 06/16/2024 12:20 PM CDT Appointment [facility] CAT SCAN [facility]1 [place] [address] Alan Davenport MD [address] DIV OF [facility] [place] [address] 06/16/2024 1:00 PM CDT Appointment [facility] ECHO [address] [place] [address] Alan Davenport MD [address] DIV [facility] [place] [address] 06/16/2024 2:00 PM CDT Appointment [facility] US [address] [place] [address] Alan Davenport MD [address] DIV [facility] [place] [address] 06/16/2024 2:45 PM CDT Appointment [facility] DIAGNOSTIC RAD OP [address] [place] [address] Alan Davenport MD [address] [facility] [place] [address] 06/16/2024 2:50 PM CDT Appointment [facility] LAB OP DRAW STATION [address] [place] [address] Alan Davenport MD [address] [facility] DIV [facility] [place] [address] 06/23/2024 1:00 PM CDT Clinical Support [facility] TRANSPLANT [address] [place] [address] 08/04/2024 11:30 AM CDT Appointment [facility] MRI [address] [place] [address] Thomas Mendoza MD [address] [facility] 2L DIV [place] [address] 08/04/2024 1:30 PM CDT Office Visit [facility] - Urology [address] [place] [phone] Thomas Mendoza MD [facility]5 [facility] 2L DIV [place] [phone] documented as of this encounter Procedures Procedure Name Priority Date/Time Associated Diagnosis Comments HOLD HLA SPECIMEN Routine 04/27/2024 1:4 8 PM CDT documented in this encounter Results * HOLD HLA SPECIMEN (04/27/2024 1:48 PM CDT) Hold HLA Specimen 04/29/2024 3:02 PM CDT [facility]) Comment:The Hold HLA specime n has been received into the lab and will be held for 5 years at 4 degrees. Blood BLOOD SPECIMEN / Unknown 04/27/2024 1:48 PM CDT 04/29/2024 1:49 PM CDT Alan Davenport MD LAB - BLOOD BANK ORD ERABLES [facility] [address] [place] [address] documented in this encounter Visit Diagnoses Not on filedocumented in this encounter Care Teams Metal Bonding Worker Relationship Specialty Start Date End Date Jeff Strickland MD [address] [place] [address] PCP - General 03/05/18 [place] [address] [place] [address] Orthopedic Surgery 03/28/17 documented as of this encounter
--- OUTSIDE RECORDS SUMMARY | 2024-05-07 13:12 | XMS_ITS | Continuity of Care Document ---
Author Organization [facility] Address [address] [place] [address] Phone Care Team Providers Care Cisco Administrator Name Role Phone Kee Rodriguez Unavailable Unavailable Procedures Procedure Date Office/outpatient Visit, Est Eye Exam Established Pt Advance Directives Directive Yes / No Effective Date File Name No Information Encounters Encounter Description Practice Location Reason(s) For Visit Diagnoses Date Provider Providers Copied on Encounter Office/outpat ient Visit, Est [facility], [address] [place] [address] [address], [place], [place], [id number], tel:[phone] [facility] No Information Mar-0 2-201 0 Krishnasamy Kee. [address] [facility] [place] [address], [place], [place], [facility], [place]. tel:[phone] [facility], [address] [place] [address] [address], [place], [place], [id number], tel:[phone] [facility] No Information Nhan-3 0-200 7 David OD Freddy. [address], [place], [place], [facility], [place]. tel:[phone] Family History Family Member Type Diagnosis Age [...]
--- OUTSIDE RECORDS SUMMARY | 2024-05-07 13:12 | XMS_ITS | Encounter Summary ---
Author Organization [facility] Address [address] [facility] [place] [address] Care Team Providers Care Salt Washer Harvesting Station Name Role Phone Deandre Bojorquez MD Unavailable Jeff Strickland MD Primary Care Provider [phone] Encounter Details Date Type Department Care Team (Late st Contact Info) Description 03/12/2024 Lab Requisition [facility] MAIN LAB [address] [place] [phone] Alan Davenport MD [facility] [place] [address] Social History Tobacco Use Types Packs/Day Years [...] CDT Appointment [facility] NUCLEAR MEDICINE [address] [place] [phone] Alan Davenport MD [address] DIV OF [facility] [place] [address] 06/16/2024 11:00 AM CDT Appointment [facility] NUCLEAR MEDICINE [address] [place] [phone] Alan Davenport MD [address] DIV OF [facility] [place] [address] 06/16/2024 12:20 PM CDT Appointment [facility] CAT SCAN [facility]1 [place] [address] Alan Davenport MD [address] DIV OF [facility] [place] [address] 06/16/2024 1:00 PM CDT Appointment [facility] ECHO [address] [place] [address] Alan Davenport MD [address] DIV OF [facility] [place] [address] 06/16/2024 2:00 PM CDT Appointment [facility] US [address] [place] [address] Alan Davenport MD [address] DIV OF [facility] [place] [address] 06/16/2024 2:45 PM CDT Appointment [facility] DIAGNOSTIC RAD OP [address] [place] [address] Alan Davenport MD [address] [facility] DIV [facility] [place] [address] 06/16/2024 2:50 PM CDT Appointment [facility] LAB OP DRAW STATION [address] [place] [address] Alan Davenport MD [address] S [facility] DIV OF [facility] [place] [address] 06/23/2024 1:00 PM CDT Clinical Support [facility] TRANSPLANT [address] [place] [address] 08/04/2024 11:30 AM CDT Appointment [facility] MRI [address] [place] [address] Thomas Mendoza MD [address] [facility] 2L [place] [address] 08/04/2024 1:30 PM CDT Office Visit [facility] - Urology [address] [place] [phone] Thomas Mendoza MD [address] [place] [address] 2L [place] [address] documented as of this encounter Procedures Procedure Name Priority Date/Time Associated Diagnosis Comments HOLD HLA SPECIMEN Routine 03/05/2024 1:4 0 PM TREASURY AGENT documented in this encounter Results * HOLD HLA SPECIMEN (03/05/2024 1:40 PM TREASURY AGENT) Hold HLA Specimen 03/12/2024 3:00 PM TREASURY AGENT [facility] ([facility]) Comment:The Hold HLA specime n has been received into the lab and will be held for 5 years at 4 degrees. Blood BLOOD SPECIMEN / Unknown 03/05/2024 1:40 PM TREASURY AGENT 03/12/2024 1:40 PM TREASURY AGENT Alan Davenport MD LAB - BLOOD BANK ORD ERABLES [facility] [address] [place] [address], [facility] documented in this encounter Visit Diagnoses Not on filedocumented in this encounter Care Teams Salt Washer Harvesting Station Relationship Specialty Start Date End Date Jeff Strickland MD [address] [place] [address] PCP - General 03/05/18 [place] [address] [place] [address] Orthopedic Surgery 03/28/17 documented as of this encounter
--- OUTSIDE RECORDS SUMMARY | 2024-05-07 13:12 | XMS_ITS | Clinical Summary ---
Author Organization [facility] Address [facility] [place] [address] Care Team Providers Care Histotechnologist Supervisor Name Role Phone Jeff Strickland MD Primary Care Provider Allergies Active Allergy Reactions Criticality Noted Date [...] by mouth nightly at bedtime. Active Multiple Vitamins-[place] als (PRESERVISION AREDS 2 OR) Take 1 [...] drink = 0.6 oz pur e alcohol) [facility] Utilities Answer Date Recorded In the past 12 months has th e electric, gas, oil, or water [employer] threatened to shut off services in your [...] slept in a usp (including now)? No 05/02/2023 Sex and Gender Information Value Date Recorded Sex Assigned at Not on file Legal Sex Male 10:10 AM HOSPITAL COORDINATOR Gender Identity Not on file Sexual [...] from hospital Lifestyle No Alice Rizzo, [facility] Insurance [employer] Advance Directives * Full Code (Latest Code Status on File) Date Activated Date Inactivated Comments 05/02/2023 12:46 AM 05/03/2023 12:26 PM Care Teams Histotechnologist Supervisor Relationship Specialty Start Date End Date Jeff Strickland MD [address] [facility] [address] [place] [address] PCP - General FAMILY PRACTICE 02/22/23
--- OUTSIDE RECORDS SUMMARY | 2024-05-07 13:12 | XMS_ITS | Encounter Summary ---
Author Organization [facility] Address [address] [place] [address] Care Team Providers Care Flame Cutting Machine Operator Name Role Phone Deandre Bojorquez MD Unavailable [phone] Jeff Strickland MD Primary Care Provider [phone] Encounter Details Date Type Department Care Team (Late st Contact Info) Description 02/07/2023 Lab Requisition [facility] MAIN LAB [address] [place] [phone] Alan Davenport MD [facility] OF [place] [address] Social History Tobacco Use Types Packs/Day Years [...] Info) Description 06/16/2024 10:00 AM CDT Appointment [facility] NUCLEAR MEDICINE [address] [place] [address] Alan Davenport MD [address] DIV [address] [facility] [place] [address] 06/16/2024 11:00 AM CDT Appointment [facility] NUCLEAR MEDICINE [address] [place] [address] Alan Davenport MD [address] [facility] [place] [address] 06/16/2024 12:20 PM CDT Appointment [facility] CAT SCAN [facility]1 [place] [address] Alan Davenport MD [address] [facility] [place] [address] 06/16/2024 1:00 PM CDT Appointment [facility] ECHO [address] [place] [address] Alan Davenport MD [address] [facility] [place] [address] 06/16/2024 2:00 PM CDT Appointment [facility] US [address] [place] [address] Alan Davenport MD [address] [facility] [place] [address] 06/16/2024 2:45 PM CDT Appointment [facility] DIAGNOSTIC RAD OP [address] [place] [address] Alan Davenport MD [address] [facility] DIV [facility] [place] [address] 06/16/2024 2:50 PM CDT Appointment [facility] LAB OP DRAW STATION [address] [place] [address] Alan Davenport MD [address] [facility] DIV OF [facility] [place] [address] 06/23/2024 1:00 PM CDT Clinical Support [facility] TRANSPLANT [address] [place] [address] 08/04/2024 11:30 AM CDT Appointment [facility] MRI [address] [place] [address] Thomas Mendoza MD [address] [facility] 2L [place] [address] 08/04/2024 1:30 PM CDT Office Visit [facility] - Urology [address] [place] [phone] Thomas Mendoza MD [address] [place] [address] 2L [place] [address] documented as of this encounter Procedures Procedure Name Priority Date/Time Associated Diagnosis Comments HOLD HLA SPECIMEN Routine 2023 7:5 8 AM PUBLIC SCHOOL TEACHER documented in this encounter Results * HOLD HLA SPECIMEN (2023 7:58 AM PUBLIC SCHOOL TEACHER) Hold HLA Specimen 02/07/2023 9:01 AM PUBLIC SCHOOL TEACHER [facility] ([facility]) Comment:The Hold HLA specime n has been received into the lab and will be held for 5 years at 4 degrees. Blood BLOOD SPECIMEN / Unknown 2023 7:58 AM PUBLIC SCHOOL TEACHER 02/07/2023 7:59 AM PUBLIC SCHOOL TEACHER Alan Davenport MD LAB - BLOOD BANK ORD ERABLES [facility] [address] [place] [address], [facility] documented in this encounter Visit Diagnoses Not on filedocumented in this encounter Care Teams Flame Cutting Machine Operator Relationship Specialty Start Date End Date Jeff Strickland MD [address] [place] [address] PCP - General 03/05/18 [place] [address] [place] [address] Orthopedic Surgery 03/28/17 documented as of this encounter
--- OUTSIDE RECORDS SUMMARY | 2024-05-07 13:12 | XMS_ITS | Encounter Summary ---
Author Organization [facility] Address [address] [place] [address] Phone Care Team Providers Care Quality Improvement Manager Name Role Phone Jeff Strickland MD Primary Care Provider Chan Nicholas MD Unavailable [phone] Alan Mccall MD Unavailable [phone] Lorna Lantigua MD Unavailable [phone] Juliette Savage RN Unavailable [phone] Pepito Haro MD PhD Unavailable Solange Guido MD Unavailable Letha Gil RN Unavailable [phone] Encounter Details Date Type Department Care Team (Late st Contact Info) Description 05/02/2021 Ophth Exam [facility] Ophthalmology [address] [place] [address] 1st [place] [phone] Corina Ventura MD PhD [address] [facility] [place] [address] Social History Tobacco Use Types [...] on file Legal Sex Male 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 04/08/2023 04/10/2023 07/07/2023 3:06 AM C DT COVID: Suspected 04/10/2024 04/10/2024 04/11/2024 1:24 AM SHREDDER OPERATOR C. difficile suspected 04/11/2024 04/11/202404/11 1:21 PM SHREDDER OPERATOR documented as of this encounter Eye Exam [...] arcade Normal Periphery Normal Normal Care Teams Quality Improvement Manager Relationship Specialty Start Date End Date Jeff Strickland MD [address] [address] PCP - General Family Medicine 04/02/18 Chan Nicholas MD [facility] [address] [address] Consulting Physician Gastroenterology 11/24/18 Alan Mccall MD [facility] [address] [address] Referring Physician Nephrology 11/24/18 Lorna Lantigua MD [facility] [address] [address] Consulting Physician Cardiology 11/24/18 07/22/23 Juliette Savage, RN [address] [place] [address] Nurse Navigator 06/04/21 03/14/22 Pepito Haro MD PhD [address] [place] [address] Consulting Physician Neurosurgery 12/03/22 Solange Guido MD [address] [facility] [address] [place] [address] Referring Physician Cardiovascular Disease 07/23/23 Letha Gil, RN [address] [facility] [address] [place] [address] [facility] Outpatient Station Manager 04/14/24 04/18/24 documented as of this encounter
[2024-05-07 13:18] LABS: Influenza A QL RT-PCR Negative (Negative); Influenza B QL RT-PCR Negative (Negative); RSV RNA, RT-PCR Negative (Negative); SARS-CoV-2 RNA PCR Negative (Negative)
--- NOTE | 2024-05-07 13:25 | ECG_ITS ---
Test Date: 2024-05-07 13:39:28 Measurements Intervals [place] Rate: 57 P: 33 KS: 173 QRS: -50 QRSD: 111 T: -14 QT: 440 QTc: 431 Interpretive Statements SINUS BRADYCARDIA INCOMPLETE RIGHT BUNDLE BRANCH BLOCK [90+ ms QRS DURATION, TERMINAL R IN V1/V2, 40+ ms S IN I/aVL/V4/V5/V6] LEFT ANTERIOR FASCICULAR BLOCK [QRS AXIS <= -45, QR IN I, RS IN II] PROLONGED QT INTERVAL NONSPECIFIC T-WAVE ABNORMALITY Compared to ECG 03/13/2024 15:00:36 NO SIGNIFICANT CHANGES Electronically Signed On 05-07-2024 18:38:35 CDT by Truong Hendricks M.D.
--- NOTE | 2024-05-07 13:25 | ED.NAVMDI ---
HPI - Nausea/Vomiting/Diarrhea General Chief complaint: Nausea/Vomiting/Diarrhea Stated complaint: n/v/d x 3 days Time Seen by Provider: 05/07/24 12:27 Source: patient and family Limitations: no limitations History of Present Illness HPI Narrative: Patient presents with vomiting and diarrhea for the past 3 days. He has not been nauseated all day. Emesis has been nonbloody and nonbilious and diarrhea has been nonbloody and not melanotic. He denies any abdominal pain. He does undergo peritoneal dialysis for end-stage renal disease and had a full session last night/overnight without early termination or complications. They were concerned he might be dehydrated. Patient's dexCom had alarmed while in the emergency department for a blood glucose of 75 mg/dL and gave him 3 tablets glucose followed by an additional 3 tablets. He no longer makes urine. He lives with his who has had similar symptoms in that she had vomiting although she has not had diarrhea. She has however also had chills. He has not had any fevers or chills. Last oral intake was toast this morning. He does have an appetite. His talent assistant is Dr. Mccall. Related Data Home Medications ?Medication ?Instructions ?Recorded ?Confirmed ?Last Taken ?Type aspirin 81 mg tablet,delayed 81 mg PO DAILY 02/01/19 04/23/24 04/02/24 History release (Sami Low Dose Aspirin) vit C 250 mg-vit E 200 unit-zinc 1 tablet PO Q12H 02/01/19 04/23/24 04/02/24 History 12.5 mg-copper 1 ni-oxt-letwpq tablet (ICaps AREDS2 (copper citrate)) cholecalciferol (vitamin D3) 125 125 mcg PO QNOON 10/01/22 04/23/24 04/02/24 History mcg (5,000 unit) tablet (Vitamin D3) atorvastatin 80 mg tablet 80 mg PO HS 09/02/23 04/23/24 04/01/24 History calcium acetate(phosphat bind) 667 2,001 mg PO TIDWM 03/13/24 04/23/24 04/02/24 History mg capsule fenofibrate nanocrystallized 145 145 mg PO QNOON 03/13/24 04/23/24 04/02/24 History mg tablet folic acid 0.8 mg-vit B comp with 800 tablet PO .noon 04/03/24 04/23/24 04/02/24 History G-[id number]-[id number] D3 2,000 unit tablet (Dialyvite 800-Ultra D) insulin aspart U-100 100 unit/mL 1 sliding scale dose subcut TID 04/03/24 04/23/24 Unknown History (3 mL) subcutaneous pen (Novolog FlexPen U-100 Insulin aspart) insulin glargine 100 unit/mL (3 30 unit subcut BID 04/03/24 04/23/24 04/02/24 History mL) subcutaneous pen (Basaglar KwikPen U-100 Insulin) furosemide 80 mg tablet 80 mg PO BID 04/21/24 04/23/24 Unknown History lisinopril 20 mg tablet 20 mg PO DAILY 04/21/24 04/23/24 Unknown History blood-glucose transmitter (Dexcom 04/23/24 04/23/24 Unknown History G6 Transmitter device) gabapentin 300 mg capsule mg PO 04/23/24 04/23/24 Unknown History nystatin 100,000 unit/gram topical topical 04/23/24 04/23/24 Unknown History powder (Nystop) Allergies Allergy/AdvReac Type Severity Reaction Status Date / Time oxycodone AdvReac Unknown Hallucinati Verified 04/23/24 13:28 ng [facility] Past Medical History Medical History Chronic ethmoidal sinusitis Nasal congestion Bilateral impacted cerumen Allergic rhinitis Chronic sinusitis Chronic recurrent sinusitis Hypertensive CHF C. difficile colitis Arthritis Kidney stones Benign prostatic hyperplasia Coronary artery disease End-stage renal disease on peritoneal dialysis Obstructive sleep apnea Insulin dependent type 2 diabetes mellitus Renal cell carcinoma Status post partial left nephrectomy. Dyslipidemia Clostridium difficile infection Gastroesophageal reflux disease Depression with anxiety Hypothyroidism Cirrhosis Pituitary tumor Status post resection. Anemia Chronic diastolic (congestive) heart failure Hypertension Surgical History Surgical History History of open reduction and internal fixation (ORIF) procedure (11/2022) Screw fixation of sternal fracture. History of colonoscopy with polypectomy History of umbilical hernia repair History of inguinal hernia repair History of coronary artery stent placement History of cardiac catheterization (08/2020) Stent x2 to the LAD. History of arthroplasty of right knee History of cataract extraction History of pituitary surgery (11/2021) History of partial nephrectomy Partial left nephrectomy for renal cell carcinoma. History of cholecystectomy (2007) Family History Family History Mother Aneurysm Hypertension Cerebrovascular accident Father Carcinoma of colon Social History Social History Social History: Surrogate medical decision maker: Harriet Carl, spouse. Code status: Full code. Smoking status: Never smoker Second hand tobacco smoke exposure: No Alcohol intake: never Alcohol use details: rare, holidays Substance use: never Substance use type: does not use Do You Feel Safe in your Home?: Yes Lack of Transportation: YES Lack of Food: Never True Current Housing: I Have Housing Concerned About Future Housing: No Difficulty Paying Gas/Electric Bills: No Difficulty Paying for Meds: No Currently Unemployed: No Education: Trade/Vocational Certificate Difficulty w/ Childcare or Family Care: No Living arrangements: with family Additional living arrangements comments: Lives with spouse in [place]. Occupation/Education: retired Additional occupation/education comments: [employer]. Spiritual care concerns: No Agree to blood products: Yes Exam Narrative: GENERAL: Well-appearing, well-nourished, and in no acute distress. HEAD: Normocephalic, atraumatic. EYES: Non injected, non icteric ENT: Nares clear, no rhinorrhea or epistaxis. Tacky mucous membranes NECK: Supple. CHEST: Speaking in full sentences. No respiratory distress. HEART: Regular rate and rhythm. . ABDOMEN: Obese but Soft, nondistended. Peritoneal dialysis. EXTREMITIES: Normal range of motion. No lower extremity edema. SKIN: Warm, dry, no rash. NEURO: No focal deficits. Alert and oriented x3. PSYCH: Normal mood and affect. Course Vital Signs Vital signs: Vital Signs Temperature 98.0 F 05/07/24 09:56 Pulse Rate 64 05/07/24 09:56 Respiratory Rate 16 05/07/24 09:56 Blood Pressure 165/65 H 05/07/24 09:56 Pulse Oximetry 100 05/07/24 09:56 Oxygen Delivery Room Air 05/07/24 09:56 Temperature 98.0 F 05/07/24 09:56 Pulse Rate 65 03/21/25 10:45 Respiratory Rate 16 05/07/24 09:56 Blood Pressure 174/84 H 05/07/24 17:16 Pulse Oximetry 98 05/07/24 16:15 Oxygen Delivery Room Air 05/07/24 09:56 MDM - Nausea/Vomiting/Diarrhea MDM Narrative Medical decision making narrative: Patient presents with vomiting and diarrhea for past 3 days. They were concerned for dehydration. In the emergency department he is afebrile with vital signs notable for hypertension. He has a normocytic anemia. This is likely due to his known end-stage renal disease; although it represents a 1.5 g drop from most recent, has been at this level before and patient without bright red blood per rectum, hematochezia, or melena so will defer digital rectal exam. Very mild thrombocytopenia. Calcium slightly improves but still hypocalcemic at 8.2 when corrected for by albumin (he has hypoalbuminemia, chronic). Tums, calcium carbonate ordered. Otherwise renal function consistent with his known diagnosis of end-stage renal disease for which he is on peritoneal dialysis. Patient does not make urine so urinalysis orders cancelled. He does have tacky mucous membranes some a 500 cc IV fluid bolus is ordered. He is no longer feeling nauseated and so p.o. challenge ordered as well as point of care glucose. Patient reassessed at 2:30 p.m. IV fluids are still running for hydration. Has eaten some juice and crackers although did not like the taste of the turkey sandwich. Still feels tired. Point of care glucose had been 63 before being given food. He is only on insulin for his diabetes, no other anti-hyperglycemic agents. Has not had any insulin today, none since last night. Patient's magnesium level is 0.8. Repletion ordered. Patient had initially been eager to be discharged however explain the recommendation for IV repletion of magnesium. He is already on 400 mg magnesium oxide daily. We discussed that there may be malabsorption issues currently given his gastroenteritis and that IV repletion may help both the lab value as well as his symptoms. He is amenable to staying for this and being discharged after infusion. Advised maintaining all medications and continue with peritoneal dialysis and following up with primary care physician and talent assistant. Given ED return precautions. Given prescription for ondansetron and calcium carbonate. He is already on magnesium but is also provided a list of magnesium rich foods he can consider. Differential Diagnosis Differential diagnosis: Likely food poisoning, gastroenteritis, clostridium difficile infection, drug-induced nausea and vomiting, dehydration and other (Considered SBP patient is without abdominal pain. Low suspicion for surgical process given no abdominal pain.) Lab Data Attestation: I reviewed the patient's lab results. 05/07/24 11:12 05/07/24 11:12 Labs: Lab Results 05/07/24 05/07/24 05/07/24 Range/Units 11:11 11:12 12:36 WBC 6.6 (4.5-10.0) K/mm3 RBC 2.65 L (4.6-6.20) M/mm3 Hgb 8.2 L (14.0-18.0) g/dL Hct 25.6 L (42.0-52.0) % MCV 96.6 (80-100) fl MCH 30.9 (26-34) pg MCHC 32.0 (32-36) g/dl RDW 16.1 H (11.5-14.5) % Plt Count 149 L (150-375) k/mm3 MPV 10.7 H (7.4-10.4) fl Immature Gran % (Auto) 2.6 H (0-0.5) % Neut % (Auto) 68.1 (45.5-73.1) % Lymph % (Auto) 16.7 L (18.3-44.2) % [place] % (Auto) 11.5 H (2.6-8.5) % Eos % (Auto) 0.9 (0-4.4) % Baso % (Auto) 0.2 (0.2-1.2) % Lymph # (Auto) 1.11 (0.9-3.2) K/mm3 [place] # (Auto) 0.8 H (0.1-0.6) K/mm3 Eos # (Auto) 0.1 (0-0.3) K/mm3 Baso # (Auto) 0.0 (0.0-0.1) K/mm3 Abs Immat Gran (auto) 0.17 H (0.00-0.031) K/mm3 Absolute Neuts (auto) 4.5 (1.3-6.7) K/mm3 Absolute Nucleated RBC 0.000 (0.0-0.012) K/mm3 Nucleated RBC % 0.0 (0.0-0.2) % Sodium 134 L (137-145) mmol/L Potassium 3.4 (3.4-5.0) mmol/L Chloride 96 L (98-107) mmol/L Carbon Dioxide 28 (22-30) mmol/L Anion Gap 10 (4-12) mmol/L BUN 33 H (9-20) mg/dL Creatinine 9.59 H (0.7-1.3) mg/dL Estim Creat Clear Calc 9 ml/min Estimated GFR 5 L (59 - ) Glucose 78 (65-110) mg/dL POC Capillary Glucose (65-105) mg/dl Calcium 7.4 L (8.4-10.2) mg/dL Magnesium 0.8 L (1.6-2.3) mg/dL Total Bilirubin 0.2 (0.2-1.3) mg/dL AST 30 (17-59) U/L ALT 17 (6-50) U/L Alkaline Phosphatase 44 (38-126) U/L Total Protein 6.0 L (6.3-8.2) g/dL Albumin 3.0 L (3.5-5.1) g/dL Lipase 74 (23-300) U/L Influenza A (RT-PCR) Negative (Negative) Influenza B (RT-PCR) Negative (Negative) RSV (RT-PCR) Negative (Negative) SARS-CoV-2 RNA (RT-PCR) Negative (Negative) 05/07/24 05/07/24 05/07/24 Range/Units 13:56 14:49 15:43 WBC (4.5-10.0) K/mm3 RBC (4.6-6.20) M/mm3 Hgb (14.0-18.0) g/dL Hct (42.0-52.0) % MCV (80-100) fl MCH (26-34) pg MCHC (32-36) g/dl RDW (11.5-14.5) % Plt Count (150-375) k/mm3 MPV (7.4-10.4) fl Immature Gran % (Auto) (0-0.5) % Neut % (Auto) (45.5-73.1) % Lymph % (Auto) (18.3-44.2) % [place] % (Auto) (2.6-8.5) % Eos % (Auto) (0-4.4) % Baso % (Auto) (0.2-1.2) % Lymph # (Auto) (0.9-3.2) K/mm3 [place] # (Auto) (0.1-0.6) K/mm3 Eos # (Auto) (0-0.3) K/mm3 Baso # (Auto) (0.0-0.1) K/mm3 Abs Immat Gran (auto) (0.00-0.031) K/mm3 Absolute Neuts (auto) (1.3-6.7) K/mm3 Absolute Nucleated RBC (0.0-0.012) K/mm3 Nucleated RBC % (0.0-0.2) % Sodium (137-145) mmol/L Potassium (3.4-5.0) mmol/L Chloride (98-107) mmol/L Carbon Dioxide (22-30) mmol/L Anion Gap (4-12) mmol/L BUN (9-20) mg/dL Creatinine (0.7-1.3) mg/dL Estim Creat Clear Calc ml/min Estimated GFR (59 - ) Glucose (65-110) mg/dL POC Capillary Glucose 63 L 62 L 99 (65-105) mg/dl Calcium (8.4-10.2) mg/dL Magnesium (1.6-2.3) mg/dL Total Bilirubin (0.2-1.3) mg/dL AST (17-59) U/L ALT (6-50) U/L Alkaline Phosphatase (38-126) U/L Total Protein (6.3-8.2) g/dL Albumin (3.5-5.1) g/dL Lipase (23-300) U/L Influenza A (RT-PCR) (Negative) Influenza B (RT-PCR) (Negative) RSV (RT-PCR) (Negative) SARS-CoV-2 RNA (RT-PCR) (Negative) ECG Data EKG #1: Attestation: I personally reviewed and interpreted this ECG as follows: ECG completion date: 05/07/24 ECG completion time: 13:39 Interpretation: Sinus bradycardia, mild, rate 57 beats per minute. CA interval 173 milliseconds. QRS 111. QT/QTC 440/435. Good R-wave progression across the precordial leads. No T-wave inversions. Discharge Plan Discharge Clinical Impression: Normocytic anemia, Hypocalcemia, Hypoalbuminemia, End-stage renal disease on peritoneal dialysis, Hypomagnesemia, Gastroenteritis Patient Disposition: Home, Self-Care Condition: Stable Instructions: Antibiotic Form, Dehydration (DC), Dialysis Nutrition Plan (DC), Acute Nausea and Vomiting (DC), Acute Diarrhea (ED), Hypocalcemia (ED), Hypomagnesemia (ED), Anemia (ED), End Stage Kidney Disease (ED) Additional Instructions: Rest and maintain your hydration. Continue taking all of your medications as prescribed. If your nausea returns you can use the oral disintegrating tablets of Zofran/ondansetron. You were given IV magnesium repletion. Given magnesium supplementation can cause diarrhea, can consider food sources to replete. Examples include salmon, tofu, yong seeds, bananas, black beans, spinach, cashews/cashew butter, oats, peanuts, potatoes with skins on, brown rice, soy milk, quinoa, kidney beans, whole wheat bread, avocado, raisins, pumpkin seeds, beet greens, dried prunes, white beans, almonds, chickpeas, etc. Continue performing peritoneal dialysis as scheduled. Follow-up with primary care physician and talent assistant. Return to the emergency department with any new or worsening symptoms. Patient Language: Tajik Prescriptions: New calcium carbonate [Tums] 200 mg calcium (500 mg) tablet,chewable 200 mg PO DAILY Qty: 30 0RF ondansetron 4 mg tablet,disintegrating 4 mg PO Q8H PRN (Reason: nausea and vomiting) Qty: 7 0RF No Action aspirin [Sami Low Dose Aspirin] 81 mg Tablet,Delayed Release (Dr/Ec) 81 mg PO DAILY ICaps AREDS2 (copper citrate) 250 mg-200 unit -12.5 mg-1 mg Tablet 1 tablet PO Q12H (DME) Dexcom G6 Transmitter Device See Rx Instructions .Route Rx Instructions: As directed gabapentin 300 mg capsule PO nystatin [Nystop] 100,000 unit/gram powder topical azelastine 137 mcg (0.1 %) spray,non-aerosol 1 spray intranasal Q12H 30 Days Qty: 30 2RF Rx Instructions: administer into each nostril furosemide 80 mg tablet 80 mg PO BID lisinopril 20 mg tablet 20 mg PO DAILY cholecalciferol (vitamin D3) [Vitamin D3] 125 mcg (5,000 unit) Tablet 125 mcg PO QNOON atorvastatin 80 mg tablet 80 mg PO HS fenofibrate nanocrystallized 145 mg tablet 145 mg PO QNOON calcium acetate(phosphat bind) 667 mg capsule 2,001 mg PO TIDWM Dialyvite 800-Ultra D 0.8-2,000 mg-unit tablet 800 tablet PO .noon insulin aspart U-100 [Novolog FlexPen U-100 Insulin] 100 unit/mL (3 mL) insulin pen 1 sliding scale dose subcut TID insulin glargine [Basaglar KwikPen U-100 Insulin] 100 unit/mL (3 mL) insulin pen 30 unit subcut BID levothyroxine 112 mcg tablet 112 mcg PO DAILY Qty: 90 2RF lorazepam [Ativan] 0.5 mg tablet 0.5 mg PO DAILY PRN (Reason: Anxiety) Qty: 30 0RF Follow-up/Referrals: Jeff Strickland MD [Primary Care Provider] - Alan Mccall MD [Physician] - Stand Alone Forms: Work/School Release IP Time of Disposition: 16:43
[2024-05-07 13:58] LABS: Glucose Point of Care 63 mg/dl (65-105)
[2024-05-07] MEDS: SODIUM CHLORIDE 0.9% IV 500 ML 999 ML IV CONT (14:02)
[2024-05-07 14:44] LABS: Magnesium 0.8 mg/dL (1.6-2.3)
[2024-05-07 14:52] LABS: Glucose Point of Care 62 mg/dl (65-105)
[2024-05-07] MEDS: SOD CHL IV CONT (14:58)
[2024-05-07] MEDS: DEXTROSE IV CONT (14:58)
--- NOTE | 2024-05-07 15:44 | PC.NURSE ---
Pt states the sugar water was making him sick. Pt stated his blood sugar was 112 and that he wanted to go home. This RN notified EDP Dr. Fontenot of pts [address] Fontenot was OK with reading and stated we did not have to continue to check his glucose.
[2024-05-07 15:45] LABS: Glucose Point of Care 99 mg/dl (65-105)
[2024-05-07] MEDS: MAGNESIUM SULF 2 GM/WATER 50ML 2 GM/50 ML BAG IVPB (16:26)
[2024-05-07] MEDS: CALCIUM CARBONATE (TUMS) 500 MG (200 MG ELEMENTAL) PO (17:10)
== END 2024-05-07 18:53 | disposition home or self-care (01) ==
PROVIDERS: Family Medicine; Emergency Provider Student in an Organized Health Care Education/Training Program; PCP Family Medicine
DX: D64.9 Anemia, unspecified (principal); E83.51 Hypocalcemia; E88.09 Other disorders of plasma-protein metabolism, not elsewhere classified; E83.42 Hypomagnesemia; K52.9 Noninfective gastroenteritis and colitis, unspecified; Z79.82 Long term (current) use of aspirin; Z79.4 Long term (current) use of insulin; I25.10 Atherosclerotic heart disease of native coronary artery without angina pectoris; G47.33 Obstructive sleep apnea (adult) (pediatric); E11.22 Type 2 diabetes mellitus with diabetic chronic kidney disease; I13.2 Hypertensive heart and chronic kidney disease with heart failure and with stage 5 chronic kidney disease, or end stage renal disease; N18.6 End stage renal disease; Z85.528 Personal history of other malignant neoplasm of kidney; E78.5 Hyperlipidemia, unspecified; F41.8 Other specified anxiety disorders; K21.9 Gastro-esophageal reflux disease without esophagitis; E03.9 Hypothyroidism, unspecified; I50.32 Chronic diastolic (congestive) heart failure; Z90.5 Acquired absence of kidney; Z99.2 Dependence on renal dialysis; Z20.822 Contact with and (suspected) exposure to COVID-19
CPT/HCPCS: 36415; 80053; 82948; 83690; 83735; 85025; 87637; 93005; 96365; 96366; 96375; 99284; A9270; J3475; J7040; J7042

== ENCOUNTER 2024-05-13 14:13 | Emergency (ER) | payer MEDICARE, SELFPAY ==
[2024-05-13 14:41] VITALS: BP 120/51; PULSE 65; RESP 16; TEMP 36.3; O2SAT 95
[2024-05-13 14:54] LABS: EDCOVIDSCREEN Negative (Negative); EDINFLUASCREEN Positive (Negative); EDINFLUBSCREEN Negative (Negative)
--- NOTE | 2024-05-13 14:58 | ED.URI ---
HPI - URI/Sore Throat General Chief Complaint: Upper Respiratory Infection Stated Complaint: flu symptoms Time Seen by Provider: 05/13/24 14:58 Source: patient, RN notes reviewed and old records reviewed Mode of arrival: ambulatory Limitations: no limitations History of Present Illness HPI Narrative: 69-year-old male presents to the [facility] with concerns for influenza a, exposed last week. Patient reports cough for 3 days worse at night. States that every morning he has diarrhea but takes Imodium which improves his symptoms. Denies any other treatment prior to arrival Related Data Home Medications ?Medication ?Instructions ?Recorded ?Confirmed ?Last Taken ?Type aspirin 81 mg tablet,delayed 81 mg PO DAILY 02/01/19 04/23/24 04/02/24 History release (Sami Low Dose Aspirin) vit C 250 mg-vit E 200 unit-zinc 1 tablet PO Q12H 02/01/19 04/23/24 04/02/24 History 12.5 mg-copper 1 [id number] tablet (ICaps AREDS2 (copper citrate)) cholecalciferol (vitamin D3) 125 125 mcg PO QNOON 10/01/22 04/23/24 04/02/24 History mcg (5,000 unit) tablet (Vitamin D3) atorvastatin 80 mg tablet 80 mg PO HS 09/02/23 04/23/24 04/01/24 History calcium acetate(phosphat bind) 667 2,001 mg PO TIDWM 03/13/24 04/23/24 04/02/24 History mg capsule fenofibrate nanocrystallized 145 145 mg PO QNOON 03/13/24 04/23/24 04/02/24 History mg tablet folic acid 0.8 mg-vit B comp with 800 tablet PO .noon 04/03/24 04/23/24 04/02/24 History [id number] D3 2,000 unit tablet (Dialyvite 800-Ultra D) insulin aspart U-100 100 unit/mL 1 sliding scale dose subcut TID 04/03/24 04/23/24 Unknown History (3 mL) subcutaneous pen (Novolog FlexPen U-100 Insulin aspart) insulin glargine 100 unit/mL (3 30 unit subcut BID 04/03/24 04/23/24 04/02/24 History mL) subcutaneous pen (Basaglar KwikPen U-100 Insulin) furosemide 80 mg tablet 80 mg PO BID 04/21/24 04/23/24 Unknown History lisinopril 20 mg tablet 20 mg PO DAILY 04/21/24 04/23/24 Unknown History blood-glucose transmitter (Dexcom 04/23/24 04/23/24 Unknown History G6 Transmitter device) gabapentin 300 mg capsule mg PO 04/23/24 04/23/24 Unknown History nystatin 100,000 unit/gram topical topical 04/23/24 04/23/24 Unknown History powder (Nystop) Allergies Allergy/AdvReac Type Severity Reaction Status Date / Time oxycodone AdvReac Unknown Hallucinati Verified 04/23/24 13:28 ng Review of Systems Review of Systems: All systems reviewed & are unremarkable except as noted in HPI and below Constitutional: Constitutional: Reports no additional constitutional complaints ENT: Reports system reviewed and no additional complaints, except as documented Cardiovascular: Cardiovascular: Reports no additional cardiovascular complaints, Denies chest pain and Denies dyspnea Respiratory: Respiratory: Reports as per HPI, Denies chest congestion, Reports cough and Denies dyspnea Musculoskeletal: Musculoskeletal: Reports no additional musculoskeletal complaints Integumentary/Breasts: Skin/Breast: Reports system reviewed and no additional complaints, except as docu PMFSH Past Medical History Medical History Chronic ethmoidal sinusitis Nasal congestion Bilateral impacted cerumen Allergic rhinitis Chronic sinusitis Chronic recurrent sinusitis Hypertensive CHF C. difficile colitis Arthritis Kidney stones Benign prostatic hyperplasia Coronary artery disease End-stage renal disease on peritoneal dialysis Obstructive sleep apnea Insulin dependent type 2 diabetes mellitus Renal cell carcinoma Status post partial left nephrectomy. Dyslipidemia Clostridium difficile infection Gastroesophageal reflux disease Depression with anxiety Hypothyroidism Cirrhosis Pituitary tumor Status post resection. Anemia Chronic diastolic (congestive) heart failure Hypertension Surgical History Surgical History History of open reduction and internal fixation (ORIF) procedure (11/2022) Screw fixation of sternal fracture. History of colonoscopy with polypectomy History of umbilical hernia repair History of inguinal hernia repair History of coronary artery stent placement History of cardiac catheterization (08/2020) Stent x2 to the LAD. History of arthroplasty of right knee History of cataract extraction History of pituitary surgery (11/2021) History of partial nephrectomy Partial left nephrectomy for renal cell carcinoma. History of cholecystectomy (2007) Family History Family History Mother Aneurysm Hypertension Cerebrovascular accident Father Carcinoma of colon Social History Social History Social History: Surrogate medical decision maker: Harriet Carl, spouse. Code status: Full code. Smoking status: Never smoker Second hand tobacco smoke exposure: No Alcohol intake: never Alcohol use details: rare, holidays Substance use: never Substance use type: does not use Do You Feel Safe in your Home?: Yes Lack of Transportation: YES Lack of Food: Never True Current Housing: I Have Housing Concerned About Future Housing: No Difficulty Paying Gas/Electric Bills: No Difficulty Paying for Meds: No Currently Unemployed: No Education: Trade/Vocational Certificate Difficulty w/ Childcare or Family Care: No Living arrangements: with family Additional living arrangements comments: Lives with spouse in [place]. Occupation/Education: retired Additional occupation/education comments: [employer]. Spiritual care concerns: No Agree to blood products: Yes Comments At the time of my signature, I reviewed and agree with the nursing past medical, surgical, social, and family history. There is no relevant family history pertinent to the patient complaint. Exam Const: General: cooperative, comfortable, no acute distress, well developed, alert, ill appearing chronically and well nourished Nutritional Appearance: well nourished Orientation/consciousness: patient oriented x3 Limitations: no limitations HENMT: Head: normal to inspection Ears: hearing grossly normal bilaterally, external ears normal, TM's normal bilaterally, EAC's normal, mastoids normal and no periauricular adenopathy Mouth: Yes Normal oral and palatal mucosa present, Yes lip normal, Yes tongue normal and Yes moist mucous membranes Throat: posterior oropharynx normal, uvula midline and no uvular edema Eyes: General: appearance normal, both eyes and all related structures Alignment and Position: alignment normal Neck: Neck: normal visual inspection, full ROM, no lymphadenopathy and no meningeal signs Chest: Chest palpation & inspection: normal inspection of the chest Resp: Effort & Inspection: normal respiratory effort and able to speak in complete sentences Auscultation: clear to auscultation bilaterally, no crackles, no rales, no rhonchi and no wheezes Cardio: Rate: regular rate Skin: General skin exam: normal color and no rashes or lesions noted Neuro: General: patient oriented x3, gait normal, moves all extremities and no meningeal signs Cognition (Neuro): normal cognition Speech: normal speech Gait exam (Neuro): Normal gait present Extrem: General: normal to inspection, full ROM, capillary refill normal and normal gait Psych: Appearance: grossly normal and well kempt Mental Status: mental status grossly normal Speech and movement: Normal speech and movement present and Clear speech present Affect: normal affect Attitude: cooperative Course Course Level of Care: Express Care Visit Vital Signs Vital signs: Vital Signs Temperature 97.3 F L 05/13/24 14:41 Pulse Rate 65 05/13/24 14:41 Respiratory Rate 16 05/13/24 14:41 Blood Pressure 120/51 L 05/13/24 14:41 Pulse Oximetry 95 05/13/24 14:41 Oxygen Delivery Room Air 05/13/24 14:41 Temperature 97.3 F L 05/13/24 14:41 Pulse Rate 65 05/13/24 14:41 Respiratory Rate 16 05/13/24 14:41 Blood Pressure 120/51 L 05/13/24 14:41 Pulse Oximetry 95 05/13/24 14:41 Oxygen Delivery Room Air 05/13/24 14:41 Reviewed MDM - URI/Sore Throat MDM Narrative Medical decision making narrative: Patient sitting in exam room. Nontoxic, vitals stable. Patient in no acute distress. Patient presents with a URI symptoms x3 days. Patient is influenza A positive. Patient has history of elevated creatinine, symptoms x 3 days. No medication prescribed Discussed with patient signs and symptoms proceed to the emergency room as well as close follow-up. Patient verbalized understanding Discharge instructions reviewed with patient, as well as provided in writing per nursing staff. The instructions also include specific and strict return/GO TO THE ER as well as f/u information. All questions have been answered, and the patient deny any further questions with discharge and discharge plan. Some parts of this dictation were generated by voice recognition software and may contain typographical and/or grammatical inaccuracies. Differential Diagnosis Differential diagnosis: Likely upper respiratory infection, otitis media, sinusitis, viral infection, bronchitis and influenza Lab Data Labs: Lab Results 05/13/24 Range/Units 14:33 POC Influenza A Ag Positive (Negative) POC Influenza B Ag Negative (Negative) POC SARS CoV-2 Ag Negative (Negative) Reviewed Critical Care Time Critical Care Time Critical Care Time: No Discharge Plan Discharge Clinical Impression: Influenza A Patient Disposition: Home, Self-Care Condition: Stable Instructions: Antibiotic Form, Influenza (ED) Additional Instructions: Today you tested positive for influenza A. It is very important that you do treat your symptoms. For cough and cold symptoms. You can talk to the pharmacist or look at the cough and cold section of your local pharmacy for medications that are safe with blood pressure Follow-up with primary care provider For new or worsening symptoms go directly to the emergency room Patient Language: [place] Prescriptions: No Action aspirin [Sami Low Dose Aspirin] 81 mg Tablet,Delayed Release (Dr/Ec) 81 mg PO DAILY ICaps AREDS2 (copper citrate) 250 mg-200 unit -12.5 mg-1 mg Tablet 1 tablet PO Q12H (DME) Dexcom G6 Transmitter Device See Rx Instructions .Route Rx Instructions: As directed gabapentin 300 mg capsule PO nystatin [Nystop] 100,000 unit/gram powder topical azelastine 137 mcg (0.1 %) spray,non-aerosol 1 spray intranasal Q12H 30 Days Qty: 30 2RF Rx Instructions: administer into each nostril furosemide 80 mg tablet 80 mg PO BID lisinopril 20 mg tablet 20 mg PO DAILY calcium carbonate [Tums] 200 mg calcium (500 mg) tablet,chewable 200 mg PO DAILY Qty: 30 0RF ondansetron 4 mg tablet,disintegrating 4 mg PO Q8H PRN (Reason: nausea and vomiting) Qty: 7 0RF cholecalciferol (vitamin D3) [Vitamin D3] 125 mcg (5,000 unit) Tablet 125 mcg PO QNOON atorvastatin 80 mg tablet 80 mg PO HS fenofibrate nanocrystallized 145 mg tablet 145 mg PO QNOON calcium acetate(phosphat bind) 667 mg capsule 2,001 mg PO TIDWM Dialyvite 800-Ultra D 0.8-2,000 mg-unit tablet 800 tablet PO .noon insulin aspart U-100 [Novolog FlexPen U-100 Insulin] 100 unit/mL (3 mL) insulin pen 1 sliding scale dose subcut TID insulin glargine [Basaglar KwikPen U-100 Insulin] 100 unit/mL (3 mL) insulin pen 30 unit subcut BID levothyroxine 112 mcg tablet 112 mcg PO DAILY Qty: 90 2RF lorazepam [Ativan] 0.5 mg tablet 0.5 mg PO DAILY PRN (Reason: Anxiety) Qty: 30 0RF Follow-up/Referrals: Jeff Strickland MD [Primary Care Provider] - 2 Weeks ([facility] care follow up ) Stand Alone Forms: Work/School Release IP Time of Disposition: 15:07
== END 2024-05-13 15:11 | disposition home or self-care (01) ==
PROVIDERS: Emergency Provider Nurse Practitioner; PCP Family Medicine
DX: J10.1 Influenza due to other identified influenza virus with other respiratory manifestations (principal); Z20.822 Contact with and (suspected) exposure to COVID-19; I13.2 Hypertensive heart and chronic kidney disease with heart failure and with stage 5 chronic kidney disease, or end stage renal disease; E11.22 Type 2 diabetes mellitus with diabetic chronic kidney disease; N18.6 End stage renal disease; I50.32 Chronic diastolic (congestive) heart failure; Z99.2 Dependence on renal dialysis; Z79.4 Long term (current) use of insulin; N40.0 Benign prostatic hyperplasia without lower urinary tract symptoms; I25.10 Atherosclerotic heart disease of native coronary artery without angina pectoris; E78.5 Hyperlipidemia, unspecified; K21.9 Gastro-esophageal reflux disease without esophagitis; E03.9 Hypothyroidism, unspecified; K74.60 Unspecified cirrhosis of liver; F41.9 Anxiety disorder, unspecified; Z85.528 Personal history of other malignant neoplasm of kidney; Z90.5 Acquired absence of kidney; Z95.5 Presence of coronary angioplasty implant and graft; Z96.651 Presence of right artificial knee joint; Z79.82 Long term (current) use of aspirin
CPT/HCPCS: 87426; 87804; 99212; G0463

== ENCOUNTER 2024-05-16 15:09 | Emergency (ER) | payer MEDICARE, SELFPAY ==
[2024-05-16 15:12] VITALS: BP 151/70; PULSE 59; RESP 18; TEMP 36.8; O2SAT 100
--- OUTSIDE RECORDS SUMMARY | 2024-05-16 15:12 | XMS_ITS | Referral Summary ---
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 (04/11/2024 3:43 AM IT PROGRAMMER) Pathologist [facility] Glucose, POC 223(H) 70 - 199 mg/dL Blood 04/11/2024 3:43 AM IT PROGRAMMER 04/11/2024 3:43 AM IT PROGRAMMER Saul Engle MD LAB POCT ORDERABLES - DEVICE Fin al Result Performing Organization Address [facility] Co de Phone Number [facility] [place] [address] * (ABNORMAL) Troponin I high-sensitivity 4-hour (04/11/2024 3:41 AM IT PROGRAMMER) Trop I hs 192(H) <=35 ng/L Comment: Interpretive Data For further hscTnI resources including the diagnostic algorithm and an aid in interpretation, copy and paste this link: https://bjhlab.testcatalog.org/show/hsTrop-1 Current Interpretive Data last revised 2019. Trop I hs pct delta -14 % [facility] Trop I hs interp Equivocal [facility] Blood 04/11/2024 3:41 AM IT PROGRAMMER 04/11/2024 4:09 AM IT PROGRAMMER Premat Medina MD LAB BLOOD ORDERABLES F inal Result Performing Organization Address [facility] Co de Phone Number [facility] [place] [address] * Sepsis Lactate w/ Reflex (04/11/2024 3:41 AM IT PROGRAMMER) Pathologist [facility] Sepsis Lactate 2.0 0.7 - 2.0 mmol/L Blood 04/11/2024 3:41 AM IT PROGRAMMER 04/11/2024 3:48 AM IT PROGRAMMER Premat Medina MD LAB BLOOD ORDERABLES F inal Result Performing Organization Address [facility] Co de Phone Number [facility] [employer] [place] [address] * CT Abdomen Pelvis W Contrast (04/11/2024 2:21 AM IT PROGRAMMER) Anatomical Region Laterality Modality Body N/A Computed Tomogra phy 04/11/2024 2:42 AM IT PROGRAMMER Impressions 04/11/2024 1:21 PM IT PROGRAMMER 1. Peritoneal dialysis catheter in place with [...] Wallace Mederos M.D. Narrative 04/11/2024 1:21 PM IT PROGRAMMER EXAMINATION: Computed tomography of the abdomen and [...] Result * ECG 12-LEAD (04/11/2024 1:52 AM IT PROGRAMMER) Narrative [facility] - 04/11/2024 1:52 AM IT PROGRAMMER Olu Collins MD 04/11/2024 1:54 AM ECG [...] Roberto Medina MD ECG ORDERABLES Final Result [facility] * (ABNORMAL) Troponin I high-sensitivity 2-hour (04/11/2024 1:48 AM IT PROGRAMMER) Trop I hs 214(C) <=35 ng/L Comment: Previous critical value noted within 48 hours ago. Interpretive Data For further hscTnI resources including the diagnostic algorithm and an aid in interpretation, copy and paste this link: https://bjhlab.testcatalog.org/show/hsTrop-1 Current Interpretive Data last revised 2019. Trop I hs pct delta -4 % [facility] Trop I hs interp Insignificant [facility] Blood 04/11/2024 1:48 AM IT PROGRAMMER 04/11/2024 2:01 AM IT PROGRAMMER Roberto Medina MD LAB BLOOD ORDERABLES F inal Result [facility] Department [place] [address] * MI CRITICAL CARE ILL/INJURED PATIENT INIT 30-74 MIN (04/11/2024 1:29 AM IT PROGRAMMER) Narrative Olu Collins MD - 04/11/2024 1:29 AM IT PROGRAMMER Olu Collins MD 04/11/2024 5:14 AM Critical [...] Chest 1 Vw Portable (04/11/2024 1:01 AM IT PROGRAMMER) Anatomical Region Laterality Modality Body, Chest N/A Computed Radiogr aphy 04/11/2024 1:48 AM IT PROGRAMMER Impressions 04/11/2024 1:25 PM IT PROGRAMMER Comparison to 04/11/2024 No pneumothorax. Small lung [...] Wallace Mederos M.D. Narrative 04/11/2024 1:25 PM IT PROGRAMMER EXAMINATION: 1 view chest radiograph Procedure Note [...] Sepsis Lactate w/ Reflex (04/11/2024 12:17 AM IT PROGRAMMER) [facility] Sepsis Lactate 2.4(H) 0.7 - 2.0 mmol/L Blood 04/11/2024 12:1 7 AM IT PROGRAMMER 04/11/2024 12:22 AM IT PROGRAMMER us Prerak Bhavesh Medina MD LAB BLOOD ORDERABLES F inal Result [facility] Department [place] [address] * (ABNORMAL) Troponin I high-sensitivity series (baseline, 2hr, 4hr, 6hr) (04/10/2024 11:41 PM IT PROGRAMMER) [facility] Trop I hs 223(C) <=35 ng/L Comment: Reviewed Interpretive Data For further hscTnI resources including the diagnostic algorithm and an aid in interpretation, copy and paste this link: https://bjhlab.testcatalog.org/show/hsTrop-1 Current Interpretive Data last revised 2019. Blood 04/10/2024 11:4 1 PM IT PROGRAMMER 04/10/2024 11:54 PM IT PROGRAMMER Roberto Medina MD LAB BLOOD ORDERABLES F inal Result Performing Organization Address City/[facility]/ZIP Co de Phone Number [facility] Department [place] [address] * Critical result callback Cardio chemistry (04/10/2024 11:41 PM IT PROGRAMMER) Date Notified [id number] Time Notified 108 [facility] Test name Trop I hs [facility] Called/Read Back Olu SIMPSON Credentials MD [facility] SIMPSON Called By KIM MANNING [facility] Blood 04/10/2024 11:4 1 PM IT PROGRAMMER 04/10/2024 11:54 PM IT PROGRAMMER Roberto Medina MD LAB BLOOD ORDERABLES F inal Result Performing Organization Address [facility] Co de Phone Number [facility] Department [place] [address] * (ABNORMAL) eGFR (04/10/2024 11:41 PM IT PROGRAMMER) eGFR 5(L) >=60 mL/min/1. 73 m2 Comment: [...] reviewed 2020. Blood 04/10/2024 11:4 1 PM IT PROGRAMMER 04/10/2024 11:55 PM IT PROGRAMMER us Sumit Baptiste MD LAB BLOOD ORDERABLES Kenna haider Result [facility] Department [place] [address] * (ABNORMAL) Differential, auto (04/10/2024 11:41 PM IT PROGRAMMER) Neutrophil abs 9.3(H) 1.5 - 6.5 K/cumm Imm gran abs 1.1(H) 0.0 - 0.1 K/cumm [facility] Lymphocyte abs 1.6 0.8 - 3.3 K/cumm [facility] Monocyte abs 1.0(H) 0.2 - 0.8 K/cumm [facility] Eosinophil abs 0.1 0.0 - 0.5 K/cumm [...] on 2017. Blood 04/10/2024 11:4 1 PM IT PROGRAMMER 04/10/2024 11:54 PM IT PROGRAMMER Sumit Pepito Baptiste MD LAB BLOOD ORDERABLES Kenna haider Result [facility] Department [place] [address] * Respiratory pathogen panel Nasopharyngeal (04/10/2024 11:41 PM IT PROGRAMMER) Pathologist [facility] Influenza A RNA Not Detected Not [...] [facility] Nasopharyngeal 04/10/2024 11 :41 PM IT PROGRAMMER 04/11/2024 12:16 AM IT PROGRAMMER Narrative [facility] - 04/11/2024 1:23 AM IT PROGRAMMER Is the Patient experiencing symptoms consistent with COVID?->Unknown Surveillance testing for transplant patient?->No Interpretive Data The [employer] FilmArray Respiratory Panel (RP2.1) assay is a [...] assay has FDA clearance for testing of ESCROW PROCESSOR swabs. The performance of additional specimen types has been assessed by the performing laboratory. The performance characteristics of this assay have been determined by [facility] Infectious Disease [facility]. Current interpretive data was last revised on 21. Roberto Medina MD LAB MICROBIOLOGY - GEN ERAL ORDERABLES Final Result [facility] Department [place] [address] * (ABNORMAL) CBC with auto differential (04/10/2024 11:41 PM IT PROGRAMMER) WBC 13.1(H) 3.8 - 9.9 K/cumm Hgb [...] [facility] Blood 04/10/2024 11:4 1 PM IT PROGRAMMER 04/10/2024 11:54 PM IT PROGRAMMER Olu Collins MD LAB BLOOD ORDERABLES Final Re sult [facility] [place] [address] * Blood culture Blood (04/10/2024 11:41 PM IT PROGRAMMER) Report Final Report: No growth Blood 04/10/2024 11:4 1 PM IT PROGRAMMER 04/11/2024 1:59 AM IT PROGRAMMER Narrative [facility] - 04/15/2024 7:01 AM IT PROGRAMMER Collection->Peripheral 1. Blood cultures are incubated for [...] performance characteristics have been verified by the [facility]. For questions about this culture, contact the Microbiology Laboratory at [phone]. Interpretive data was last revised on 23. us Prerak Bhavesh Medina MD LAB MICROBIOLOGY - GEN ERAL ORDERABLES Final Result Performing Organization Address City/[facility]/ZIP Co de Phone Number [facility] Department [place] [address] * Blood culture Blood (04/10/2024 11:41 PM IT PROGRAMMER) Report Final Report: No growth Blood 04/10/2024 11:4 1 PM IT PROGRAMMER 04/11/2024 1:59 AM IT PROGRAMMER Narrative [facility] - 04/15/2024 7:01 AM IT PROGRAMMER Collection->Peripheral 1. Blood cultures are incubated for [...] performance characteristics have been verified by the [facility]. For questions about this culture, contact the Microbiology Laboratory at [phone]. Interpretive data was last revised on 23. Roberto Medina MD LAB MICROBIOLOGY - GEN ERAL ORDERABLES Final Result Performing Organization Address City/[facility]/ZIP Co de Phone Number [facility] Department [place] [address] * TSH (04/10/2024 11:41 PM IT PROGRAMMER) Thyroid Stimulating Hormone 3.20 0.30 - 4.20 mcIUnit/mL Blood 04/10/2024 11:4 1 PM IT PROGRAMMER 04/10/2024 11:55 PM IT PROGRAMMER Olu Collins MD LAB BLOOD ORDERABLES Final Re sult Performing Organization Address City/[facility]/ZIP Co de Phone Number [facility] Department [place] [address] * Cholesterol, LDL, direct (04/10/2024 11:41 PM IT PROGRAMMER) LDL Cholesterol, Direct 41 <=129 mg/dL Comment: [...] on 2017. Blood 04/10/2024 11:4 1 PM IT PROGRAMMER 04/10/2024 11:55 PM IT PROGRAMMER Narrative [facility] - 04/11/2024 6:09 PM IT PROGRAMMER Cholesterol, LDL, direct reflexed based on Elevated Triglyceride (>400) us Nicole Boo MD LAB BLOOD ORDERABLES Final Result [facility] Department [place] [address] * (ABNORMAL) Hemoglobin A1c (04/10/2024 11:41 PM IT PROGRAMMER) Hgb A1C 7.0(H) 4.0 - 5.6 % [...] fasting glucose. Blood 04/10/2024 11:4 1 PM IT PROGRAMMER 04/10/2024 11:57 PM IT PROGRAMMER us Saul Engle MD LAB BLOOD ORDERABLES Final Resul t [facility] Department [place] [address] * (ABNORMAL) Lipid panel (04/10/2024 11:41 PM IT PROGRAMMER) Cholesterol 145 30 - 199 mg/dL Comment: [...] on 2017. Triglycerides 453(H) <=149 mg/dL [facility] Comment: Interpretive [...] on 2017. HDL 22(L) >=40 mg/dL [facility] Comment: Interpretive [...] [facility] Blood 04/10/2024 11:4 1 PM IT PROGRAMMER 04/10/2024 11:55 PM IT PROGRAMMER us Nicole Boo MD LAB BLOOD ORDERABLES Final Result [facility] Department [place] [address] * (ABNORMAL) Comprehensive metabolic panel (04/10/2024 11:41 PM IT PROGRAMMER) Sodium 141 135 - 145 mmol/L Potassium, [...] 2022. Calcium 9.2 8.5 - 10.3 mg/dL [facility] Bilirubin, total 0.2 0.1 - 1.2 mg/dL [facility] Protein, pl 6.5 6.5 - 8.5 g/dL [facility] Albumin 3.1(L) 3.5 - 5.0 g/dL [facility] Alk phos 64 40 - 130 Units/L [facility] ALT 26 7 - 55 Units/L [facility] AST 30 10 - 50 Units/L [facility] Blood 04/10/2024 11:4 1 PM IT PROGRAMMER 04/10/2024 11:55 PM IT PROGRAMMER us Olu Collins MD LAB BLOOD ORDERABLES Final Re sult [facility] Department [place] [address] * (ABNORMAL) ECG 12-LEAD (04/10/2024 11:15 PM IT PROGRAMMER) Narrative [facility] - 04/10/2024 11:15 PM IT PROGRAMMER Mario Alberto Cornelius MD 04/10/2024 11:17 PM [...] the ED Mario Alberto Cornelius MD 04/10/24 [id number] Olu Collins MD ECG ORDERABLES Final Result [facility] * OCT, Retina - OU - Both Eyes (03/09/2024 2:00 PM IT PROGRAMMER) Central Macular Thickness OS 227 micrometers CONTINUUM Central Macular Thickness OD 479 micrometers CONTINUUM Anatomical Region Laterality Modality Head Optical Coherenc e Tomography Narrative 03/16/2024 12:53 PM IT PROGRAMMER Right Eye Quality was good. Scan locations included subfoveal. Progression has improved. Macular thickness was 479 micrometers. Left Eye Quality was good. Scan locations included subfoveal. Progression has been stable. Macular thickness was 227 micrometers. Notes OD - ERM, CME continues to improve OS - flat Sera Villanueva MD OPHTH TOMOGRAPHY Fi nal Result from Last 3 Months Insurance MEDICARE T MEDICARE AET MEDICARE Advance Directives For more information, please contact: [phone] * Full Code (Latest Code Status on [...] 3:52 PM 06/08/2021 9:56 PM Care Teams Advertising Sales Representative Relationship Specialty Start Date End Date Jeff Strickland MD [address] [place] [address] PCP - General Family Medicine 04/02/18 Chan Nicholas MD [address] [facility] [address] [place] [address] Consulting Physician Gastroenterology 11/24/18 Alan Mccall MD [address] [facility] [address] [place] [address] Referring Physician Nephrology 11/24/18 Pepito Haro MD PhD [address] [place] [address] Consulting Physician Neurosurgery 12/03/22 Solange Guido MD [address] [facility] [address] [place] [address] Referring Physician Cardiovascular Disease 07/23/23
--- OUTSIDE RECORDS SUMMARY | 2024-05-16 15:12 | XMS_ITS ---
Author Organization [facility] Address [facility] [place] [address] Care Team Providers Care Steel Placer Name Role Phone Jeff Strickland MD Primary Care Provider Chan Nicholas MD Unavailable [phone] Alan Mccall MD Unavailable [phone] Pepito Haro MD PhD Unavailable Solange Guido MD Unavailable [phone] Active Problems Problem Noted Date Diagnosed Date [...] warrant further PDT. - Patient returned to [facility] for ongoing care and follow up Assessment & Plan (03/09/2024 6:25 PM CONFIGURATION ANALYST): Vision OD trends mild improvement, though still [...] is improving spontaneously, patient can follow in [facility]. Assessment & Plan (10/08/2023 2:51 PM CDT): [...] 2 weeks and have patient return to [facility] retina in 4 weeks for repeat [...] 03/26/2021 Assessment & Plan (03/26/2021 1:17 PM CONFIGURATION ANALYST): Enlarged mild sella turcica on a routine [...] units Assessment & Plan (03/26/2021 1:17 PM CONFIGURATION ANALYST): Chronic, uncontrolled, improving A1c today 7.7 % [...] WNL Assessment & Plan (03/26/2021 1:16 PM CONFIGURATION ANALYST): Pt currently on Levothyroxine 112 mcg oral [...] 11/18/2018 Assessment & Plan (01/21/2019 2:02 PM CONFIGURATION ANALYST): Symptomatic. Will request for esophageal manometry. Continue [...] well Assessment & Plan (03/26/2021 1:16 PM CONFIGURATION ANALYST): On statin therapy Tolerating well Last lipid [...] nephrectomy. 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 [id number] Current Treatment and Therapy Plans No current [...] were not included. Kendall Carl 1955 Referring Marketing Effectiveness Manager: Alan Mccall Dialysis Info: NOD GFR 13 Type: Time: (Not currently on dialysis) days Blood Type: O NEG Body mass index is 37.36 kg/m . ALERTS Quality Control Lab Technician: needs to establish Past Medical History: Diagnosis Date Arthropathy RA. Dr Strickland manages. 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 Becerra in [place]. CKD (chronic kidney disease), stage V Community acquired pneumonia 2018 [facility] hospitalized. Diabetes mellitus 20 years. Lantus pen. Esophageal reflux takes med Hypercholesteremia 5-10 yrs meds Hypertension takes meds Hypothyroidism meds 20 years Kidney stones 5-6 years ago had 2 in the same year. Malignancy right kidney 2012 Obstructive sleep apnea 3 years. [facility]. Angela remember doctors name Renal cell [...] file Gets together: Not on file Attends rastafarian service: Not on file Active member of [...] It is the impression of this social problems specialist that Kendall Carl has several positive factors for Kidney transplant candidacy from a psychosocial perspective. Patient appears to have appropriate knowledge of illness. Patient has sufficient insurance coverage and stable financial situation for post transplant needs. No concerns regarding substance abuse, legal issues, or mental health needs. Patient has adequate support system and appropriate discharge plan. Plan: antisqueak worker to provide supportive services as needed. Patient appears to be a reasonable candidate for transplant from a psychosocial perspective. -Post transplant arrangement forms are needed prior to being listed. -Updated toxicology results needed, per protocol Psychiatric Consult Recommended: No Transplant Management Information Systems Director: Joy Tam LCSW RD: 11/09/2019 BMI= 36.2, [...] use my fitness pal or my food pitching coach) - Consume no more than 2000 calories a day E-mailed pt's a 2000 calorie, CKD meal plan. Items Still Pending: Clinic, colonoscopy Acute pain of left shoulder 01/25/2019 03/25/2023 Non-cardiac chest pain 11/18/201803/25 Assessment & Plan (01/21/2019 2:02 PM CONFIGURATION ANALYST): The pain is persistent. The patient described [...] has had extensive cardiac workup by the belt press operator including coronary angiogram. He has [...]
--- OUTSIDE RECORDS SUMMARY | 2024-05-16 15:12 | XMS_ITS | Encounter Summary ---
Author Organization [facility] Address [facility] [place] [address] Care Team Providers Care Net Developer Contract Name Role Phone Deandre Bojorquez MD Unavailable [phone] Jeff Strickland MD Primary Care Provider [phone] Encounter Details Date Type Department Care Team (Late st Contact Info) Description 02/04/2024 Lab Requisition [facility] MAIN LAB [address] [place] [phone] Alan Davenport MD [facility]1 [facility] [place] [address] Social History Tobacco Use Types Packs/Day Years [...] Info) Description 06/16/2024 10:00 AM CDT Appointment [facility] NUCLEAR MEDICINE [address] [place] [phone] Alan Davenport MD [address] DIV OF [facility] [place] [address] 06/16/2024 11:00 AM CDT Appointment [facility] NUCLEAR MEDICINE [address] [place] [phone] Alan Davenport MD [address] DIV OF [facility] [place] [address] 06/16/2024 12:20 PM CDT Appointment [facility] CAT SCAN [facility]1 [place] [address] Alan Davenport MD [address] DIV OF [facility] [place] [address] 06/16/2024 1:00 PM CDT Appointment [facility] ECHO [address] [place] [address] Alan Davenport MD [address] DIV OF [facility] [place] [address] 06/16/2024 2:00 PM CDT Appointment [facility] US [address] [place] [address] Alan Davenport MD [address] DIV OF [facility] [place] [address] 06/16/2024 2:45 PM CDT Appointment [facility] DIAGNOSTIC RAD OP [address] [place] [address] Alan Davenport MD [address] [facility] [place] [address] 06/16/2024 2:50 PM CDT Appointment [facility] LAB OP DRAW STATION [address] [place] [address] Alan Davenport MD [address] [facility] DIV OF [facility] [place] [address] 06/23/2024 1:00 PM CDT Clinical Support [facility] TRANSPLANT [address] [place] [address] 08/04/2024 11:30 AM CDT Appointment [facility] MRI [facility]1 [place] [address] Thomas Mendoza MD [address] [facility] 2L [place] [address] 08/04/2024 1:30 PM CDT Office Visit [facility] - Urology [address] [place] [phone] Thomas Mendoza MD [address] [place] [address] 2L [place] [address] documented as of this encounter Procedures Procedure Name Priority Date/Time Associated Diagnosis Comments HOLD HLA SPECIMEN Routine 01/27/2024 3:2 3 PM MARINE PIPE WELDER documented in this encounter Results * HOLD HLA SPECIMEN (01/27/2024 3:23 PM MARINE PIPE WELDER) Hold HLA Specimen 02/04/2024 4:31 PM MARINE PIPE WELDER [facility] Comment:The Hold HLA specime n has been received into the lab and will be held for 5 years at 4 degrees. Blood BLOOD SPECIMEN / Unknown 01/27/2024 3:23 PM MARINE PIPE WELDER 02/04/2024 3:23 PM MARINE PIPE WELDER Alan Davenport MD LAB - BLOOD BANK ORD ERABLES [facility] [address] [place] [address], [facility] documented in this encounter Visit Diagnoses Not on filedocumented in this encounter Care Teams Net Developer Contract Relationship Specialty Start Date End Date Jeff Strickland MD [address] [place] [address] PCP - General 03/05/18 [place] [address] [place] [id number] Orthopedic Surgery 03/28/17 documented as of this encounter
--- OUTSIDE RECORDS SUMMARY | 2024-05-16 15:12 | XMS_ITS | Encounter Summary ---
Author Organization [facility] Address [facility]3 [facility] [place] [address] Care Team Providers Care Director Telehealth Name Role Phone Deandre Bojorquez MD Unavailable [phone] Jeff Strickland MD Primary Care Provider [phone] Encounter Details Date Type Department Care Team (Late st Contact Info) Description 07/31/2023 Lab Requisition [facility] MAIN LAB [address] [place] [phone] Alan Davenport MD [facility] [place] [address] Social History Tobacco Use Types Packs/Day Years [...] [facility] NUCLEAR MEDICINE [address] [place] [phone] Alan Davenport MD [address] DIV OF [facility] [place] [address] 06/16/2024 11:00 AM CDT Appointment [facility] NUCLEAR MEDICINE [address] [place] [phone] Alan Davenport MD [address] DIV OF [facility] [place] [address] 06/16/2024 12:20 PM CDT Appointment [facility] CAT SCAN [facility] [place] [address] Alan Davenport MD [address] DIV OF [facility] [place] [address] 06/16/2024 1:00 PM CDT Appointment [facility] ECHO [address] [place] [address] Alan Davenport MD [address] DIV OF [facility] [place] [address] 06/16/2024 2:00 PM CDT Appointment [facility] US [address] [place] [address] Alan Davenport MD [address] DIV OF [facility] [place] [address] 06/16/2024 2:45 PM CDT Appointment [facility] DIAGNOSTIC RAD OP [address] [place] [address] Alan Davenport MD [address] [facility] DIV OF [facility] [place] [address] 06/16/2024 2:50 PM CDT Appointment [facility] LAB OP DRAW STATION [address] [place] [address] Alan Davenport MD [address] [facility] DIV OF [facility] [place] [address] 06/23/2024 1:00 PM CDT Clinical Support [facility] TRANSPLANT [address] [place] [address] 08/04/2024 11:30 AM CDT Appointment [facility] MRI [facility] [place] [address] Thomas Mendoza MD [address] [facility] 2L DIV [place] [address] 08/04/2024 1:30 PM CDT Office Visit [facility] Physician [facility] - Urology [address] [place] [phone] Thomas Mendoza MD [facility]5 [facility] 2L DIV [place] [address] documented as of this encounter Procedures Procedure Name Priority Date/Time Associated Diagnosis Comments HOLD HLA SPECIMEN Routine 07/23/2023 2:0 5 PM CDT documented in this encounter Results * HOLD HLA SPECIMEN (07/23/2023 2:05 PM CDT) Hold HLA Specimen 07/31/2023 3:32 PM CDT [facility] Comment:The Hold HLA specime n has been received into the lab and will be held for 5 years at 4 degrees. Blood BLOOD SPECIMEN / Unknown 07/23/2023 2:05 PM CDT 07/31/2023 2:06 PM CDT Alan Davenport MD LAB - BLOOD BANK ORD ERABLES [facility] [address] [place] [address], [facility] documented in this encounter Visit Diagnoses Not on filedocumented in this encounter Care Teams Director Telehealth Relationship Specialty Start Date End Date Jeff Strickland MD [address] [place] [address] PCP - General 03/05/18 [place] [address] [place] [address] Orthopedic Surgery 03/28/17 documented as of this encounter
--- OUTSIDE RECORDS SUMMARY | 2024-05-16 15:13 | XMS_ITS | Continuity of Care Document ---
Author Organization [facility] Address [address] [place] [address] Phone Care Team Providers Care Doll Surgeon Name Role Phone Kee Rodriguez Unavailable Unavailable Procedures Procedure Date Office/outpatient Visit, Est Eye Exam Established Pt Advance Directives Directive Yes / No Effective Date File Name No Information Encounters Encounter Description Practice Location Reason(s) For Visit Diagnoses Date Provider Providers Copied on Encounter Office/outpat ient Visit, Est [facility], [address] [place] [address] [address], [place], [place], [id number], tel:[phone] [facility] No Information Mar-0 2-201 0 Krishnasamy Kee. [address] [facility] [place] [address], [place], [place], [facility], [place]. tel:[phone] [facility], [address] [place] [address] [address], [place], [place], [id number], tel:[phone] [facility] No Information Nhan-3 0-200 7 David OD Freddy. [address], [place], [place], [facility], [place]. tel:[phone] Family History Family Member Type Diagnosis Age [...]
--- OUTSIDE RECORDS SUMMARY | 2024-05-16 15:13 | XMS_ITS | Encounter Summary ---
Author Organization [facility] Address [facility]3 [facility] [place] [address] Care Team Providers Care Collection Systems Consultant Name Role Phone Deandre Bojorquez MD Unavailable [phone] Jeff Strickland MD Primary Care Provider [phone] Encounter Details Date Type Department Care Team (Late st Contact Info) Description 04/10/2023 Lab Requisition [facility] MAIN LAB [address] [place] [phone] Alan Davenport MD [facility] OF ABD [place] [address] Social History Tobacco Use Types Packs/Day Years [...] Info) Description 06/16/2024 10:00 AM CDT Appointment [facility] NUCLEAR MEDICINE [address] [place] [phone] Alan Davenport MD [address] DIV OF [facility] [place] [address] 06/16/2024 11:00 AM CDT Appointment [facility] NUCLEAR MEDICINE [address] [place] [phone] Alan Davenport MD [address] DIV OF [facility] [place] [address] 06/16/2024 12:20 PM CDT Appointment [facility] CAT SCAN [facility] [place] [address] Alan Davenport MD [address] DIV OF [facility] [place] [address] 06/16/2024 1:00 PM CDT Appointment [facility] ECHO [address] [place] [address] Alan Davenport MD [address] DIV OF [facility] [place] [address] 06/16/2024 2:00 PM CDT Appointment [facility] US [address] [place] [address] Alan Davenport MD [address] DIV OF [facility] [place] [address] 06/16/2024 2:45 PM CDT Appointment [facility] DIAGNOSTIC RAD OP [address] [place] [address] Alan Davenport MD [address] [facility] DIV OF [facility] [place] [address] 06/16/2024 2:50 PM CDT Appointment [facility] LAB OP DRAW STATION [address] [place] [address] Alan Davenport MD [address] S [facility] DIV OF [facility] [place] [address] 06/23/2024 1:00 PM CDT Clinical Support [facility] TRANSPLANT [address] [place] [address] 08/04/2024 11:30 AM CDT Appointment [facility] MRI [facility] [place] [address] Thomas Mendoza MD [address] [facility] 2L [place] [address] 08/04/2024 1:30 PM CDT Office Visit [facility] Physician Group - Urology [address] [place] [phone] Thomas Mendoza MD [address] [place] [address] 2L [place] [address] documented as of this encounter Procedures Procedure Name Priority Date/Time Associated Diagnosis Comments HOLD HLA SPECIMEN Routine 04/02/2023 3:0 1 PM FLAT KNITTER documented in this encounter Results * HOLD HLA SPECIMEN (04/02/2023 3:01 PM FLAT KNITTER) Hold HLA Specimen 04/10/2023 4:01 PM FLAT KNITTER [facility] Comment:The Hold HLA specime n has been received into the lab and will be held for 5 years at 4 degrees. Blood BLOOD SPECIMEN / Unknown 04/02/2023 3:01 PM FLAT KNITTER 04/10/2023 3:01 PM FLAT KNITTER Alan Davenport MD LAB - BLOOD BANK ORD ERABLES [facility] [address] [place] [address], [facility] documented in this encounter Visit Diagnoses Not on filedocumented in this encounter Care Teams Collection Systems Consultant Relationship Specialty Start Date End Date Jeff Strickland MD [address] [place] [address] PCP - General 03/05/18 [place] [address] [place] [address] Orthopedic Surgery 03/28/17 documented as of this encounter
--- OUTSIDE RECORDS SUMMARY | 2024-05-16 15:13 | XMS_ITS | Clinical Summary ---
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 paste this link: https://bjhlab.testcatalog.org/show/hsTrop-1 Current Interpretive Data last revised 2019. Trop I hs pct delta -13 % [facility] Trop I hs interp Equivocal [facility] Blood 04/11/2024 4:47 AM CMM OPERATOR 04/11/2024 5:05 AM CMM OPERATOR Roberto Medina MD LAB BLOOD ORDERABLES F inal Result Performing Organization Address [facility] Co de Phone Number [facility] [place] [address] * Cell Differential, Body Fluid (04/11/2024 3:51 AM CMM OPERATOR) Total cells diffed 100 cells Comment: [...] % [facility] Fluid 04/11/2024 3:51 AM CMM OPERATOR 04/11/2024 5:30 AM CMM OPERATOR Saul Engle MD LAB BODY FLUIDS AND STOOLS ORDER MICHELLE Final Result Performing Organization Address [facility] de Phone Number [facility] [place] [employer] [place] [address] * Cell count w/rflx diff, body fluid (04/11/2024 3:51 AM CMM OPERATOR) Specimen type, fld Dialysate Color, fld [...] on 2018. RBC, fld 0 /cumm [facility] Fluid 04/11/2024 3:51 AM CMM OPERATOR 04/11/2024 5:30 AM CMM OPERATOR Saul Engle MD LAB BODY FLUIDS AND STOOLS ORDER MICHELLE Final Result Performing Organization Address [facility] Co de Phone Number [facility] [place] [address] * Aerobic and anaerobic culture and gram stain Peritoneal dialysis fluid Peritoneum (04/11/2024 3:51 AM CMM OPERATOR) Direct Specimen Exam Stain: Cytospin Gram stain shows: Rare polymorphonuclear leukocytes seen. Other cellular material present. No organisms seen. Report Final Report: No growth [facility] Peritoneal dialysis fluid (Peritoneum) 04/11/2024 3:51 AM CMM OPERATOR 04/11/2024 6:13 AM CMM OPERATOR Narrative [facility] - 04/17/2024 12:22 PM CMM OPERATOR Fluid specimen received. Testing performed by [facility] ([phone]) Specimens submitted from normally sterile body sites [...] City/[facility]/ZIP Co de Phone Number [facility] [place] [address] * (ABNORMAL) POCT glucose (04/11/2024 3:43 AM CMM OPERATOR) Pathologist [facility] Glucose, POC 223(H) 70 - 199 mg/dL Blood 04/11/2024 3:43 AM CMM OPERATOR 04/11/2024 3:43 AM CMM OPERATOR Saul Engle MD LAB POCT ORDERABLES - DEVICE Fin al Result [facility] [place] [place] [address] * (ABNORMAL) Troponin I high-sensitivity 4-hour (04/11/2024 3:41 AM CMM OPERATOR) Pathologist [facility] Trop I hs 192(H) <=35 ng/L Comment: Interpretive Data For further hscTnI resources including the diagnostic algorithm and an aid in interpretation, copy and paste this link: https://bjhlab.testcatalog.org/show/hsTrop-1 Current Interpretive Data last revised 2019. Trop I hs pct delta -14 % [facility] Trop I hs interp Equivocal [facility] Blood 04/11/2024 3:41 AM CMM OPERATOR 04/11/2024 4:09 AM CMM OPERATOR Roberto Medina MD LAB BLOOD ORDERABLES F inal Result Performing Organization Address [facility] de Phone Number [facility] [place] [address] * Sepsis Lactate w/ Reflex (04/11/2024 3:41 AM CMM OPERATOR) Sepsis Lactate 2.0 0.7 - 2.0 mmol/L Blood 04/11/2024 3:41 AM CMM OPERATOR 04/11/2024 3:48 AM CMM OPERATOR Roberto Medina MD LAB BLOOD ORDERABLES F inal Result Performing Organization Address [facility] de Phone Number [facility] [place] [address] * CT Abdomen Pelvis W Contrast (04/11/2024 2:21 AM CMM OPERATOR) Anatomical Region Laterality Modality Body N/A Computed Tomogra phy 04/11/2024 2:42 AM CMM OPERATOR Impressions 04/11/2024 1:21 PM CMM OPERATOR 1. Peritoneal dialysis catheter in place [...] Wallace Mederos M.D. Narrative 04/11/2024 1:21 PM CMM OPERATOR EXAMINATION: Computed tomography of the abdomen [...] Result * ECG 12-LEAD (04/11/2024 1:52 AM CMM OPERATOR) Narrative [facility] - 04/11/2024 1:52 AM CMM OPERATOR Olu Collins MD 04/11/2024 1:54 AM [...] Final Result Performing Organization Address City/[facility] Co de Phone Number [facility] * (ABNORMAL) Troponin I high-sensitivity 2-hour (04/11/2024 1:48 AM CMM OPERATOR) Trop I hs 214(C) <=35 ng/L Comment: Previous critical value noted within 48 hours ago. Interpretive Data For further [facility] resources including the diagnostic algorithm and an aid in interpretation, copy and paste this link: https://bjhlab.testcatalog.org/show/hsTrop-1 Current Interpretive Data last revised 2019. Trop I hs pct delta -4 % [facility] Trop I hs interp Insignificant [facility] Blood 04/11/2024 1:48 AM CMM OPERATOR 04/11/2024 2:01 AM CMM OPERATOR Roberto Medina MD LAB BLOOD ORDERABLES F inal Result [facility] [place] [address] * CO CRITICAL CARE ILL/INJURED PATIENT INIT 30-74 MIN (04/11/2024 1:29 AM CMM OPERATOR) Narrative Olu Collins MD - 04/11/2024 1:29 AM CMM OPERATOR Olu Collins MD 04/11/2024 5:14 AM [...] Chest 1 Vw Portable (04/11/2024 1:01 AM CMM OPERATOR) Anatomical Region Laterality Modality Body, Chest N/A Computed Radiogr aphy 04/11/2024 1:48 AM CMM OPERATOR Impressions 04/11/2024 1:25 PM CMM OPERATOR Comparison to 04/11/2024 No pneumothorax. Small [...] Wallace Mederos M.D. Narrative 04/11/2024 1:25 PM CMM OPERATOR EXAMINATION: 1 view chest radiograph Procedure [...] Sepsis Lactate w/ Reflex (04/11/2024 12:17 AM CMM OPERATOR) Sepsis Lactate 2.4(H) 0.7 - 2.0 mmol/L Blood 04/11/2024 12:1 7 AM CMM OPERATOR 04/11/2024 12:22 AM CMM OPERATOR us Prerak Bhaveshlala Medina MD LAB BLOOD ORDERABLES F inal Result [facility] [place] [address] * (ABNORMAL) Troponin I high-sensitivity series (baseline, 2hr, 4hr, 6hr) (04/10/2024 11:41 PM CMM OPERATOR) Trop I hs 223(C) <=35 ng/L Comment: Reviewed Interpretive Data For further hscTnI resources including the diagnostic algorithm and an aid in interpretation, copy and paste this link: https://bjhlab.testcatalog.org/show/hsTrop-1 Current Interpretive Data last revised 2019. Blood 04/10/2024 11:4 1 PM CMM OPERATOR 04/10/2024 11:54 PM CMM OPERATOR us Prerak Bhavesh Adam MD LAB BLOOD ORDERABLES F inal Result Performing Organization Address City/[facility]/ZIP Co de Phone Number [facility] [place] [address] * Critical result callback Cardio chemistry (04/10/2024 11:41 PM CMM OPERATOR) Date Notified [id number] Time Notified 108 KERRI SIMPSON Test name Trop I hs KERRI SIMPSON Called/Read Back Olu SIMPSON Credentials MD KERRI SIMPSON Called By SB KERRI SIMPSON Blood 04/10/2024 11:4 1 PM CMM OPERATOR 04/10/2024 11:54 PM CMM OPERATOR Premat Meidna MD LAB BLOOD ORDERABLES F inal Result Performing Organization Address [facility] Co de Phone Number [facility] [place] [address] * (ABNORMAL) eGFR (04/10/2024 11:41 PM CMM OPERATOR) eGFR 5(L) >=60 mL/min/1. 73 m2 [...] reviewed 2020. Blood 04/10/2024 11:4 1 PM CMM OPERATOR 04/10/2024 11:55 PM CMM OPERATOR Sumit Baptiste MD LAB BLOOD ORDERABLES Kenna haider Result [facility] [place] [address] * (ABNORMAL) Differential, auto (04/10/2024 11:41 PM CMM OPERATOR) Neutrophil abs 9.3(H) 1.5 - 6.5 K/cumm Imm gran abs 1.1(H) 0.0 - 0.1 K/cumm [facility] Lymphocyte abs 1.6 0.8 - 3.3 K/cumm [facility] Monocyte abs 1.0(H) 0.2 - 0.8 K/cumm [facility] Eosinophil abs 0.1 0.0 - 0.5 K/cumm [facility] Basophil abs 0.1 0.0 - 0.1 K/cumm [facility] Neutrophil pct 71.0 % [facility] Comment: Confirmed by smear review Interpretive Data Percent cell count reference ranges are not reported, since discordance with absolute values may lead to misinterpretation of CBC data. Current Interpretive Data was last revised on 2017. Imm gran pct 8.2 % [facility] Comment: Interpretive Data Percent cell count reference ranges are not reported, since discordance with absolute values may lead to misinterpretation of CBC data. Current Interpretive Data was last revised on 2017. Lymphocyte pct 12.3 % [facility] Comment: Interpretive Data Percent cell count reference ranges are not reported, since discordance with absolute values may lead to misinterpretation of CBC data. Current Interpretive Data was last revised on 2017. Monocyte pct 7.3 % [facility] Comment: Interpretive Data Percent cell count reference ranges are not reported, since discordance with absolute values may lead to misinterpretation of CBC data. Current Interpretive Data was last revised on 2017. Eosinophil pct 0.8 % [facility] Comment: Interpretive Data Percent cell count reference ranges are not reported, since discordance with absolute values may lead to misinterpretation of CBC data. Current Interpretive Data was last revised on 2017. Basophil pct 0.4 % [facility] Comment: Interpretive Data Percent cell count reference ranges are not reported, since discordance with absolute values may lead to misinterpretation of CBC data. Current Interpretive Data was last revised on 2017. Blood 04/10/2024 11:4 1 PM CMM OPERATOR 04/10/2024 11:54 PM CMM OPERATOR Sumit Baptiste MD LAB BLOOD ORDERABLES Kenna haider Result [facility] [place] [address] * Respiratory pathogen panel Nasopharyngeal (04/10/2024 11:41 PM CMM OPERATOR) Pathologist [facility] Influenza A RNA Not Detected Not Detected Influenza B RNA Not Detected Not Detected [facility] RSV RNA Not Detected Not Detected [facility] COVID-19 RNA Not Detected Not Detected [facility] Coronavirus 229E RNA Not Detected Not Detected [facility] Coronavirus HKU1 RNA Not Detected Not Detected [facility] Coronavirus NL63 RNA Not Detected Not Detected [facility] Coronavirus OC43 RNA Not Detected Not Detected [facility] Adenovirus DNA Not Detected Not Detected [facility] Metapneumovirus RNA Not Detected Not Detected [facility] Rhinovirus/Enterov irus RNA Not Detected Not Detected [facility] Parainfluenza 1 RNA Not Detected Not Detected [facility] Parainfluenza 2 RNA Not Detected Not Detected [facility] Parainfluenza 3 RNA Not Detected Not Detected [facility] Parainfluenza 4 RNA Not Detected Not Detected [facility] B. pertussis DNA Not Detected Not Detected [facility] B. parapertussis DNA Not Detected Not Detected [facility] C. pneumoniae DNA Not Detected Not Detected [facility] M. pneumoniae DNA Not Detected Not Detected [facility] Nasopharyngeal 04/10/2024 11 :41 PM CMM OPERATOR 04/11/2024 12:16 AM CMM OPERATOR Narrative [facility] - 04/11/2024 1:23 AM CMM OPERATOR Is the Patient experiencing symptoms consistent with COVID?->Unknown Surveillance testing for transplant patient?->No Interpretive Data The [employer] Respiratory Panel (RP2.1) assay is a [...] assay has FDA clearance for testing of ARCHITECTURAL MANAGER swabs. The performance of additional specimen types has been assessed by the performing laboratory. The performance characteristics of this assay have been determined by [facility] Molecular Infectious Disease Laboratory. Current interpretive data was last revised on 21. us Roberto Medina MD LAB MICROBIOLOGY - GEN ERAL ORDERABLES Final Result [facility] [place] [place] [address] * (ABNORMAL) CBC with auto differential (04/10/2024 11:41 PM CMM OPERATOR) WBC 13.1(H) 3.8 - 9.9 K/cumm Hgb 9.8(L) 13.0 - 17.5 g/dL [facility] Hct 30.3(L) 38.9 - 50.3 % [facility] Plt 272 150 - 400 K/cumm [facility] MPV 11.5 9.1 - 12.3 fL [facility] RBC 3.21(L) 4.30 - 5.80 M/cumm [facility] MCV 94.4 81.3 - 96.4 fL [facility] MCH 30.5 27.1 - 33.3 pg [facility] MCHC 32.3 32.3 - 35.7 g/dL [facility] RDW CV 15.8(H) 11.1 - 14.9 % [facility] RDW SD 54.0(H) 35.7 - 48.1 fL [facility] NRBC abs 0.00 0.00 - 0.01 K/cumm [facility] Blood 04/10/2024 11:4 1 PM CMM OPERATOR 04/10/2024 11:54 PM CMM OPERATOR us Olu Collins MD LAB BLOOD ORDERABLES Final Re sult [facility] [place] [place] [address] * Blood culture Blood (04/10/2024 11:41 PM CMM OPERATOR) Report Final Report: No growth Blood 04/10/2024 11:4 1 PM CMM OPERATOR 04/11/2024 1:59 AM CMM OPERATOR Narrative [facility] - 04/15/2024 7:01 AM CMM OPERATOR Collection->Peripheral 1. Blood cultures are incubated [...] performance characteristics have been verified by the [facility]. For questions about this culture, contact the Microbiology Laboratory at [phone]. Interpretive data was last revised on 23. us Prerak Bhavesh Medina MD LAB MICROBIOLOGY - GEN ERAL ORDERABLES Final Result [facility]ER[facility] SIMPSON [facility] [place] [address] * Blood culture Blood (04/10/2024 11:41 PM CMM OPERATOR) Report Final Report: No growth Blood 04/10/2024 11:4 1 PM CMM OPERATOR 04/11/2024 1:59 AM CMM OPERATOR Narrative [facility] SIMPSON - 04/15/2024 7:01 AM CMM OPERATOR Collection->Peripheral 1. Blood cultures are incubated [...] performance characteristics have been verified by the [facility]. For questions about this culture, contact the Microbiology Laboratory at [phone]. Interpretive data was last revised on 23. Roberto Medina MD LAB MICROBIOLOGY - GEN ERAL ORDERABLES Final Result Performing Organization Address [facility] Co de Phone Number [facility] [place] [address] * TSH (04/10/2024 11:41 PM CMM OPERATOR) Thyroid Stimulating Hormone 3.20 0.30 - 4.20 mcIUnit/mL Blood 04/10/2024 11:4 1 PM CMM OPERATOR 04/10/2024 11:55 PM CMM OPERATOR Olu Collins MD LAB BLOOD ORDERABLES Final Re sult Performing Organization Address [facility] de Phone Number [facility] [place] [address] * Cholesterol, LDL, direct (04/10/2024 11:41 PM CMM OPERATOR) LDL Cholesterol, Direct 41 <=129 mg/dL [...] on 2017. Blood 04/10/2024 11:4 1 PM CMM OPERATOR 04/10/2024 11:55 PM CMM OPERATOR Narrative [facility] - 04/11/2024 6:09 PM CMM OPERATOR Cholesterol, LDL, direct reflexed based on Elevated Triglyceride (>400) Nicole Boo MD LAB BLOOD ORDERABLES Final Result Performing Organization Address City/[facility]/ZIP Co de Phone Number [facility] [place] [address] * (ABNORMAL) Hemoglobin A1c (04/10/2024 11:41 PM CMM OPERATOR) [facility] Hgb A1C 7.0(H) 4.0 - 5.6 % Estimated Average Glucose 154 mg/dL [facility] Comment: The ADA recommends reporting an estimated Average Glucose (eAG) with all Hemoglobin A1c results using the equation derived from a study of 507 normal and diabetic adults. Minority populations were underrepresented and children were not included. (Diabetes Care 2020; 43(S1): S66-S76). The eAG is not equivalent to a fasting glucose. Blood 04/10/2024 11:4 1 PM CMM OPERATOR 04/10/2024 11:57 PM CMM OPERATOR us Saul Engle MD LAB BLOOD ORDERABLES Final Resul t [facility] [place] [address] * (ABNORMAL) Lipid panel (04/10/2024 11:41 PM CMM OPERATOR) [facility] Cholesterol 145 30 - 199 mg/dL [...] on 2017. Triglycerides 453(H) <=149 mg/dL [facility] Comment: Interpretive Data Ages [...] on 2017. HDL 22(L) >=40 mg/dL [facility] Comment: Interpretive Data Ages [...] 2017. LDL, calculated See Comment <=129 [facility] Comment: Unable to calculate LDL [...] revised on 2023. Non-HDL Cholesterol 123 mg/dL [facility] Comment: Interpretive [...] last revised on 2017. Chol/HDL ratio 7 [facility] Blood 04/10/2024 11:4 1 PM CMM OPERATOR 04/10/2024 11:55 PM CMM OPERATOR Nicole Boo MD LAB BLOOD ORDERABLES Final Result [facility] [place] [address] * (ABNORMAL) Comprehensive metabolic panel (04/10/2024 11:41 PM CMM OPERATOR) Sodium 141 135 - 145 mmol/L Potassium, pl 3.4 3.3 - 4.9 mmol/L [facility] Chloride 98 97 - 110 mmol/L [facility] CO2 27 22 - 32 mmol/L [facility] Anion gap 16(H) 2 - 15 mmol/L [facility] BUN 45(H) 6 - 25 mg/dL [facility] Creatinine 10.90(H) 0.80 - 1.30 mg/dL [facility] Glucose 240(H) 70 - 199 mg/dL [facility] Comment: Interpretive Data Fasting glucose >/= 126 [...] 2022. Calcium 9.2 8.5 - 10.3 mg/dL [facility] Bilirubin, total 0.2 0.1 - 1.2 mg/dL [facility] Protein, pl 6.5 6.5 - 8.5 g/dL [facility] Albumin 3.1(L) 3.5 - 5.0 g/dL [facility] Alk phos 64 40 - 130 Units/L [facility] ALT 26 7 - 55 Units/L [facility] AST 30 10 - 50 Units/L [facility] Blood 04/10/2024 11:4 1 PM CMM OPERATOR 04/10/2024 11:55 PM CMM OPERATOR Olu Collins MD LAB BLOOD ORDERABLES Final Re sult [facility] [place] [address] * (ABNORMAL) ECG 12-LEAD (04/10/2024 11:15 PM CMM OPERATOR) Narrative [facility] - 04/10/2024 11:15 PM CMM OPERATOR Mari oAlberto Cornelius MD 04/10/2024 11:17 PM ECG 12 [...] the ED Mario Alberto Cornelius MD 04/10/24 5239 us Olu Collins MD ECG ORDERABLES Final Result [facility]J * OCT, Retina - OU - Both Eyes (03/09/2024 2:00 PM CMM OPERATOR) Central Macular Thickness OS 227 micrometers CONTINUUM Central Macular Thickness OD 479 micrometers CONTINUUM Anatomical Region Laterality Modality Head [facility] Coheren[facility] e Tomography Narrative 03/16/2024 12:53 PM CMM OPERATOR Right Eye Quality was good. Scan locations included subfoveal. Progression has improved. Macular thickness was 479 micrometers. Left Eye Quality was good. Scan locations included subfoveal. Progression has been stable. Macular thickness was 227 micrometers. Notes OD - ERM, CME continues to improve OS - flat Sera Villanueva MD OPHTH TOMOGRAPHY Fi nal Result from Last 3 Months Insurance [facility]LY [facility] MEDICARE FOR[facility]LY [facility] MEDICARE [employer] MEDICARE Advance Directives For more information, please contact: [phone] * Full Code (Latest Code Status on [...] 3:52 PM 06/08/2021 9:56 PM Care Teams Senior Systems Architect Relationship Specialty Start Date End Date Jeff Strickland MD [address] [facility] [address] [place] [address] PCP - General Family Medicine 04/02/18 Chan Nicholas MD [address] [address] [place] [address] Consulting Physician Gastroenterology 11/24/18 Alan Mccall MD [address] [place] [address] Referring Physician Nephrology 11/24/18 Pepito Haro MD PhD [address] [place] [address] Consulting Physician Neurosurgery 12/03/22 Solange Guido MD [address] [facility] [address] [place] [address] Referring Physician Cardiovascular Disease 07/23/23
--- OUTSIDE RECORDS SUMMARY | 2024-05-16 15:13 | XMS_ITS | Encounter Summary ---
Author Organization [facility] Address [facility]3 [facility] [address] Care Team Providers Care Cleaning Maid Name Role Phone Deandre Bojorquez MD Unavailable [phone] Jeff Strickland MD Primary Care Provider [phone] Encounter Details Date Type Department Care Team (Late st Contact Info) Description 10/28/2023 Lab Requisition [facility] MAIN LAB [address] [place] [phone] Alan Davenport MD [facility]1 [facility] [place] [address] Social History Tobacco Use Types Packs/Day Years [...] Info) Description 06/16/2024 10:00 AM CDT Appointment [facility] NUCLEAR MEDICINE [address] [place] [phone] Alan Davenport MD [address] DIV OF [facility] [place] [address] 06/16/2024 11:00 AM CDT Appointment [facility] NUCLEAR MEDICINE [address] [place] [phone] Alan Davenport MD [address] DIV OF [facility] [place] [address] 06/16/2024 12:20 PM CDT Appointment [facility] CAT SCAN [facility]1 [place] [address] Alan Davenport MD [address] DIV OF [facility] [place] [address] 06/16/2024 1:00 PM CDT Appointment [facility] ECHO [address] [place] [address] Alan Davenport MD [address] DIV OF [facility] [place] [address] 06/16/2024 2:00 PM CDT Appointment [facility] US [address] [place] [address] Alan Davenport MD [address] DIV OF [facility] [place] [address] 06/16/2024 2:45 PM CDT Appointment [facility] DIAGNOSTIC RAD OP [address] [place] [address] Alan Davenport MD [address] [facility] [place] [address] 06/16/2024 2:50 PM CDT Appointment [facility] LAB OP DRAW STATION [address] [place] [address] Alan Davenport MD [address] [facility] DIV OF [facility] [place] [address] 06/23/2024 1:00 PM CDT Clinical Support [facility] TRANSPLANT [address] [place] [address] 08/04/2024 11:30 AM CDT Appointment [facility] MRI [facility]1 [place] [address] Thomas Mendoza MD 1225 [facility] 2L [place] [address] 08/04/2024 1:30 PM CDT Office Visit [facility] - Urology [address] [place] [phone] Thomas Mendoza MD [facility]5 [facility] 2L [place] [address] documented as of this encounter Procedures Procedure Name Priority Date/Time Associated Diagnosis Comments HOLD HLA SPECIMEN Routine 10/22/2023 3:5 0 PM CDT documented in this encounter Results * HOLD HLA SPECIMEN (10/22/2023 3:50 PM CDT) Hold HLA Specimen 10/28/2023 5:00 PM CDT [facility] Comment:The Hold HLA specime n has been received into the lab and will be held for 5 years at 4 degrees. Blood BLOOD SPECIMEN / Unknown 10/22/2023 3:50 PM CDT 10/28/2023 3:50 PM CDT Alan Davenport MD LAB - BLOOD BANK ORD ERABLES [facility] [address] [place] [address] documented in this encounter Visit Diagnoses Not on filedocumented in this encounter Care Teams Cleaning Maid Relationship Specialty Start Date End Date Jeff Strickland MD [address] [place] [address] PCP - General 03/05/18 [place] [address] [place] [address] Orthopedic Surgery 03/28/17 documented as of this encounter
--- OUTSIDE RECORDS SUMMARY | 2024-05-16 15:13 | XMS_ITS | Encounter Summary ---
Author Organization [facility] Address [facility]3 [facility] [place] [address] Care Team Providers Care Control Supervisor Name Role Phone Deandre Bojorquez MD Unavailable [phone] Jeff Strickland MD Primary Care Provider [phone] Encounter Details Date Type Department Care Team (Late st Contact Info) Description 09/30/2023 Lab Requisition [facility] MAIN LAB [address] [place] [phone] Alan Davenport MD [facility] [place]1 [facility] OF [place] [address] Social History Tobacco Use Types Packs/Day Years [...] Info) Description 06/16/2024 10:00 AM CDT Appointment [facility] NUCLEAR MEDICINE [address] [place] [phone] Alan Davenport MD [address] DIV OF [facility] [place] [address] 06/16/2024 11:00 AM CDT Appointment [facility] NUCLEAR MEDICINE [address] [place] [phone] Alan Davenport MD [address] DIV OF [facility] [place] [address] 06/16/2024 12:20 PM CDT Appointment [facility] CAT SCAN [facility] [place]1 [place] [address] Alan Davenport MD [address] DIV OF [facility] [place] [address] 06/16/2024 1:00 PM CDT Appointment [facility] ECHO [address] [place] [address] Alan Davenport MD [address] DIV OF [facility] [place] [address] 06/16/2024 2:00 PM CDT Appointment [facility] US [address] [place] [address] Alan Davenport MD [address] DIV OF [facility] [place] [address] 06/16/2024 2:45 PM CDT Appointment [facility] DIAGNOSTIC RAD OP [address] [place] [address] Alan Davenport MD [address] [facility] [place] [address] 06/16/2024 2:50 PM CDT Appointment [facility] LAB OP DRAW STATION [address] [place] [address] Alan Davenport MD [address] [facility] [place] [address] 06/23/2024 1:00 PM CDT Clinical Support [facility] TRANSPLANT [address] [place] [address] 08/04/2024 11:30 AM CDT Appointment [facility] MRI [facility] [place] [facility]1 [place] [address] Thomas Mendoza MD 1225 [facility] 2L [place] [address] 08/04/2024 1:30 PM CDT Office Visit [facility] - Urology [address] [place] [phone] Thomas Mendoza MD [facility]5 [facility] 2L [place] [address] documented as of this encounter Procedures Procedure Name Priority Date/Time Associated Diagnosis Comments HOLD HLA SPECIMEN Routine 09/24/2023 3:2 7 PM CDT documented in this encounter Results * HOLD HLA SPECIMEN (09/24/2023 3:27 PM CDT) Hold HLA Specimen 09/30/2023 4:32 PM CDT [facility] Comment:The Hold HLA specime n has been received into the lab and will be held for 5 years at 4 degrees. Blood BLOOD SPECIMEN / Unknown 09/24/2023 3:27 PM CDT 09/30/2023 3:27 PM CDT Alan Davenport MD LAB - BLOOD BANK ORD ERABLES [facility] [address] [place] [address] documented in this encounter Visit Diagnoses Not on filedocumented in this encounter Care Teams Control Supervisor Relationship Specialty Start Date End Date Jeff Strickland MD [address] [place] [address] PCP - General 03/05/18 [place] [address] [place] [address] Orthopedic Surgery 03/28/17 documented as of this encounter
--- OUTSIDE RECORDS SUMMARY | 2024-05-16 15:13 | XMS_ITS | Encounter Summary ---
Author Organization [facility] Address [facility]3 [facility] [place] [address] Care Team Providers Care Party Plan Dealer Name Role Phone Deandre Bojorquez MD Unavailable [phone] Jeff Strickland MD Primary Care Provider [phone] Encounter Details Date Type Department Care Team (Late st Contact Info) Description 03/12/2024 Lab Requisition [facility] MAIN LAB [address] [place] [phone] Alan Davenport MD [facility]1 [facility] [place] [address] Social History Tobacco Use Types Packs/Day Years [...] Info) Description 06/16/2024 10:00 AM CDT Appointment [facility] NUCLEAR MEDICINE [address] [place] [address] Alan Davenport MD [address] DIV OF [facility] [place] [address] 06/16/2024 11:00 AM CDT Appointment [facility] NUCLEAR MEDICINE [address] [place] [phone] Alan Davenport MD [address] DIV OF [facility] [place] [address] 06/16/2024 12:20 PM CDT Appointment [facility] CAT SCAN [facility]1 [place] [address] Alan Davenport MD [address] DIV OF [facility] [place] [address] 06/16/2024 1:00 PM CDT Appointment [facility] ECHO [address] [place] [address] Alan Davenport MD [address] DIV OF [facility] [place] [address] 06/16/2024 2:00 PM CDT Appointment [facility] US [address] [place] [address] Alan Davenport MD [address] DIV OF [facility] [place] [address] 06/16/2024 2:45 PM CDT Appointment [facility] DIAGNOSTIC RAD OP [address] [place] [address] Alan Davenport MD [address] [facility] DIV OF [facility] [place] [address] 06/16/2024 2:50 PM CDT Appointment [facility] LAB OP DRAW STATION [address] [place] [address] Alan Davenport MD 1201 [address] [facility] DIV OF [facility] [place] [address] 06/23/2024 1:00 PM CDT Clinical Support [facility] TRANS[facility]ANT [address] [place] [address] 08/04/2024 11:30 AM CDT Appointment [facility] MRI [address] [place] [address] Thomas Mendoza MD 1225 [facility] 2L [place] [address] 08/04/2024 1:30 PM CDT Office Visit [facility] Physician [facility] - Urology [address] [place] [phone] Thomas Mendoza MD [address] [place] [address] 2L [place] [address] documented as of this encounter Procedures Procedure Name Priority Date/Time Associated Diagnosis Comments HOLD HLA SPECIMEN Routine 03/05/2024 1:4 0 PM PHARMACY CLINICAL SPECIALIST documented in this encounter Results * HOLD HLA SPECIMEN (03/05/2024 1:40 PM PHARMACY CLINICAL SPECIALIST) Hold HLA Specimen 03/12/2024 3:00 PM PHARMACY CLINICAL SPECIALIST [facility] Comment:The Hold HLA specime n has been received into the lab and will be held for 5 years at 4 degrees. Blood BLOOD SPECIMEN / Unknown 03/05/2024 1:40 PM PHARMACY CLINICAL SPECIALIST 03/12/2024 1:40 PM PHARMACY CLINICAL SPECIALIST Alan Davenport MD LAB - BLOOD BANK ORD ERABLES [facility] [address] [place] [address], [facility] documented in this encounter Visit Diagnoses Not on filedocumented in this encounter Care Teams Party Plan Dealer Relationship Specialty Start Date End Date Jeff Strickland MD [address] [place] [address] PCP - General 03/05/18 [place] [address] [place] [address] Orthopedic Surgery 03/28/17 documented as of this encounter
--- OUTSIDE RECORDS SUMMARY | 2024-05-16 15:13 | XMS_ITS | Patient Health Record ---
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 confirmed Problem Chronic pain syndrome (G89.4) Active confirmed Chronic joan n syndrome (195735957) Problem Primary osteoarthritis, 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) Active confirmed Localized, primary osteoarthritis of the shoulder region (862813219) Problem Pain in left hip (M25.552) Active confirmed Pain of left hi p joint (finding) (937634037929252) Problem Spondylosis without myelopathy or radiculopathy, lumbar region (M47.816) Active confirmed Lumbosacral spondylosis without myelopathy (73995918) Problem Other intervertebral disc degeneration, lumbar region (M51.36) Active confirmed Degeneration of lumbar intervertebral disc (85872624) Problem Radiculopathy, lumbar region (M54.16) Active confirmed Lumbar radiculopathy (055016970) Problem Radiculopathy, lumbosacral region (M54.17) Active confirmed Lumbosacral radiculopathy (8126584) Problem Osseous stenosis of neural canal of lumbar region (M99.33) Active confirmed Spinal stenosis of lumbar region (51920805) Problem long term care social worker (current) use of anticoagulants (Z79.01) Active confirmed Long-term curre nt use of anticoagulant (853340082) Problem Other intervertebral disc degeneration, lumbar region [...] Date Provider Diagnosis [facility] [address] [place] [phone] 09/29/2023 Sergio Stynowick Radiculopathy, lumba r region M54.16 ; Other chest pain R07.89 ; Other intervertebral disc degeneration, lumbar region M51.36 ; 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 ; Spondylosis without myelopathy or radiculopathy, lumbar region M47.816 and half-way (current) use of anticoagulants Z79.01 [facility] [address] [place] [address] 01/12/2024 Sergio Stynowick Radiculopathy, lumba r region M54.16 ; Radiculopathy, lumbosacral region M54.17 ; Other chest pain R07.89 ; Other intervertebral disc degeneration, lumbar region M51.36 ; 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 ; Spondylosis without myelopathy or radiculopathy, lumbar region M47.816 and long term care social worker (current) use of anticoagulants Z79.01 [facility] [address] [place] [address] 01/19/2024 Sergio Stynowick Radiculopathy, lumba r region M54.16 ; Other intervertebral disc degeneration, lumbar region with discogenic back pain and lower extremity pain M51.362 and 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 [facility] [address] [place] [address] 02/03/2024 Sergio Stynowick Other chest pain R07.89 ; Pain in left knee M25.562 ; Radiculopathy, lumbar region M54.16 ; Other intervertebral disc degeneration, lumbar region M51.36 ; 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 ; Spondylosis without myelopathy or radiculopathy, lumbar region M47.816 and half-way (current) use of anticoagulants Z79.01 [facility] [address] [place] [address] 03/03/2024 Sergio Stynowick Pain in left knee M25.562 ; Primary osteoarthritis, unspecified shoulder M19.019 ; Other chest pain R07.89 ; Radiculopathy, lumbar region M54.16 ; Other intervertebral disc degeneration, lumbar region M51.36 ; 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 ; Spondylosis without myelopathy or radiculopathy, lumbar region M47.816 ; half-way (current) use of anticoagulants Z79.01 ; Pain in right shoulder M25.511 and Pain in left shoulder M25.512 [facility] [address] [place] [address] 03/08/2024 Sergio Stkerryowick Primary osteoarthritis, unspecified shoulder M19.019 [facility] [address] [place] [address] 03/31/2024 Sergio Schmitzick ASSESSMENTS Encounter Date Diagnosis Assessment Notes Treatment Notes Treatment Clinical Notes 09/29/2023 Radiculopathy, lumbar region (ICD-10 - M54.16) [...] disc degeneration, lumbar region (ICD-10 - M51.36) 09/29/2023 Osseous stenosis of neural canal of [...] canal of lumbar region (ICD-10 - M99.33) 09/29/2023 Spondylosis without myelopathy or radiculopathy, lumbar region (ICD-10 - M47.816) 09/29/2023 long term care social worker (current) use of anticoagulants (ICD-10 - Z79.01) 01/12/2024 Spondylosis without myelopathy or radiculopathy, lumbar region (ICD-10 - M47.816) 02/03/2024 Spondylosis without myelopathy or radiculopathy, lumbar region (ICD-10 - M47.816) 03/03/2024 Osseous stenosis of neural canal of lumbar region (ICD-10 - M99.33) 01/12/2024 half-way (current) use of anticoagulants (ICD-10 - Z79.01) The patient was instructed to discontinue aspirin for 6 days prior to the procedure. I made the patient aware that he will be at an increased risk for a thromboembolic event during this time and he is willing to accept this risk. The patient was instructed to notify his primary care physician and/or home health nurse to obtain clearance prior to discontinuing this medication. 02/03/2024 long term care social worker (current) use of anticoagulants (ICD-10 - Z79.01) 03/03/2024 Spondylosis without myelopathy or radiculopathy, lumbar region (ICD-10 - M47.816) 03/03/2024 long term care social worker (current) use of anticoagulants (ICD-10 - Z79.01) 03/03/2024 Pain in right shoulder (ICD-10 - M25.511) 03/03/2024 Pain in left shoulder (ICD-10 - M25.512) 09/29/2023 Other The above-named patient was evaluated [...] Coverage End Date [employer] MED[employer]ARE [address] [place] [address] [id number] GRACE INTERIANO Self - patient is the insured MEDICAL (GENERAL) HISTORY Medical History History ICD Code Hypertension Hypothyroidism Diabetes type 2 Gastroesophageal reflux disease (GERD) Renal cell cancer Chronic kidney disease stage 4 Sleep apnea CHF Surgical History Surgery Date(Month/Year) Right total knee arthroplasty 08/2015 Cholecystectomy Hernia repair 2019 Cardiac stent 07/2020
--- OUTSIDE RECORDS SUMMARY | 2024-05-16 15:13 | XMS_ITS | Encounter Summary ---
Author Organization [facility] Address [facility]3 [facility] [place] [address] Care Team Providers Care Asbestos Microscopist Name Role Phone Deandre Bojorquez MD Unavailable [phone] Jeff Strickland MD Primary Care Provider [phone] Encounter Details Date Type Department Care Team (Late st Contact Info) Description 05/29/2023 Lab Requisition [facility] MAIN LAB [address] [place] [phone] Alan Davenport MD Formerly named [facility]1 [facility] [place] [address] Social History Tobacco Use Types Packs/Day Years [...] Info) Description 06/16/2024 10:00 AM CDT Appointment [facility] NUCLEAR MEDICINE [address] [place] [phone] Alan Davenport MD [address] DIV OF [facility] [address] 06/16/2024 11:00 AM CDT Appointment [facility] NUCLEAR MEDICINE [address] [place] [address] Alan Davenport MD [address] DIV OF [facility] [address] 06/16/2024 12:20 PM CDT Appointment [facility] CAT SCAN Formerly named [facility]1 [place] [address] Alan Davenport MD [address] DIV OF [facility] [place] [address] 06/16/2024 1:00 PM CDT Appointment [facility] ECHO [address] [place] [address] Alan Davenport MD [address] DIV OF [facility] [place] [address] 06/16/2024 2:00 PM CDT Appointment [facility] US [address] [place] [address] Alan Davenport MD [address] DIV OF [facility] [place] [address] 06/16/2024 2:45 PM CDT Appointment [facility] DIAGNOSTIC RAD OP [address] [place] [address] Alan Davenport MD [address] [facility] DIV OF [facility] [place] [address] 06/16/2024 2:50 PM CDT Appointment [facility] LAB OP DRAW STATION [address] [place] [address] Alan Davenport MD [address]01 S [facility] DIV OF [facility] [place] [address] 06/23/2024 1:00 PM CDT Clinical Support [facility] TRANSPLANT [address] [place] [address] 08/04/2024 11:30 AM CDT Appointment [facility] MRI [address] [place] [address] Thomas Mendoza MD 1225 [facility] 2L [place] [address] 08/04/2024 1:30 PM CDT Office Visit [facility] - Urology [address] [place] [phone] Thomas Mendoza MD [facility]5 [facility] 2L [place] [address] documented as of this encounter Procedures Procedure Name Priority Date/Time Associated Diagnosis Comments HOLD HLA SPECIMEN Routine 05/21/2023 9:2 4 AM CDT documented in this encounter Results * HOLD HLA SPECIMEN (05/21/2023 9:24 AM CDT) Hold HLA Specimen 05/29/2023 10:30 AM CDT [facility] Comment:The Hold HLA specime n has been received into the lab and will be held for 5 years at 4 degrees. Blood BLOOD SPECIMEN / Unknown 05/21/2023 9:24 AM CDT 05/29/2023 9:24 AM CDT Alan Davenport MD LAB - BLOOD BANK ORD ERABLES [facility] [address] [place] [address] documented in this encounter Visit Diagnoses Not on filedocumented in this encounter Care Teams Asbestos Microscopist Relationship Specialty Start Date End Date Jeff Strickland MD [address] [place] [address] PCP - General 03/05/18 [place] [address] [place] [address] Orthopedic Surgery 03/28/17 documented as of this encounter
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
--- OUTSIDE RECORDS SUMMARY | 2024-05-16 15:13 | XMS_ITS | Encounter Summary ---
Author Organization [facility] Address [facility] [facility] [place] [address] Care Team Providers Care Leave Manager Name Role Phone Deandre Bojorquez MD Unavailable [phone] Jeff Strickland MD Primary Care Provider [phone] Encounter Details Date Type Department Care Team (Late st Contact Info) Description 03/30/2024 Lab Requisition [facility] MAIN LAB [address] [place] [phone] Alan Davenport MD [facility] OF [place] [address] Social History Tobacco Use Types Packs/Day Years [...] Info) Description 06/16/2024 10:00 AM CDT Appointment [facility] NUCLEAR MEDICINE [address] [place] [phone] Alan Davenport MD [address] OF [facility] [place] [address] 06/16/2024 11:00 AM CDT Appointment [facility] NUCLEAR MEDICINE [address] [place] [phone] Alan Davenport MD [address] DIV OF [facility] [place] [address] 06/16/2024 12:20 PM CDT Appointment [facility] CAT SCAN [facility] [place] [address] Alan Davenport MD [address] DIV OF [facility] [place] [address] 06/16/2024 1:00 PM CDT Appointment [facility] ECHO [address] [place] [address] Alan Davenport MD [address] DIV OF [facility] [place] [address] 06/16/2024 2:00 PM CDT Appointment [facility] US [address] [place] [address] Alan Davenport MD [address] DIV OF [facility] [place] [address] 06/16/2024 2:45 PM CDT Appointment [facility] DIAGNOSTIC RAD OP [address] [place] [address] Alan Davenport MD [address] [facility] [place] [address] 06/16/2024 2:50 PM CDT Appointment [facility] LAB OP [place] [address] [place] [address] Alan Davenport MD [address] [facility] DIV OF [facility] [place] [address] 06/23/2024 1:00 PM CDT Clinical Support [facility] TRANSPLANT [address] [place] [address] 08/04/2024 11:30 AM CDT Appointment [facility] MRI [address] [place] [address] Thomas Mendoza MD [address] [facility] 2L [place] [address] 08/04/2024 1:30 PM CDT Office Visit [facility] - Urology [address] [place] [phone] Thomas Mendoza MD [address] [place] [address] [address] [place] [address] documented as of this encounter Procedures Procedure Name Priority Date/Time Associated Diagnosis Comments HOLD HLA SPECIMEN Routine 03/25/2024 2:5 1 PM ENVIRONMENTAL ADVISER documented in this encounter Results * HOLD HLA SPECIMEN (03/25/2024 2:51 PM ENVIRONMENTAL ADVISER) Hold HLA Specimen 03/30/2024 4:01 PM ENVIRONMENTAL ADVISER [facility] Comment:The Hold HLA specime n has been received into the lab and will be held for 5 years at 4 degrees. Blood BLOOD SPECIMEN / Unknown 03/25/2024 2:51 PM ENVIRONMENTAL ADVISER 03/30/2024 2:51 PM ENVIRONMENTAL ADVISER Alan Davenport MD LAB - BLOOD BANK ORD ERABLES [facility] [address] [place] [address], [facility] documented in this encounter Visit Diagnoses Not on filedocumented in this encounter Care Teams Leave Manager Relationship Specialty Start Date End Date Jeff Strickland MD [address] [place] [address] PCP - General 03/05/18 [place] [address] [place] [address] Orthopedic Surgery 03/28/17 documented as of this encounter
--- OUTSIDE RECORDS SUMMARY | 2024-05-16 15:13 | XMS_ITS ---
Author Organization [facility] Address [address] [place] [id number] Care Team Providers Care Job Training Supervisor Name Role Phone Jeff Strickland MD Primary Care Provider Chan Nicholas MD Unavailable Alan Mccall MD Unavailable Pepito Haro MD PhD Unavailable Solange Guido MD Unavailable [phone] Dialysis Access Sites Type Status Location Placement Date Removal Da te Peritoneal Dialysis Catheter Mid lower abdomen Active Abdomen - Lower, Medial (Navel) Hemodialysis Cath Double Inactive Right Breast - Upper 05/01/2021 Hemodialysis Cath Double Inactive Right Breast - Upper 0 05/02/2021 11/22/2021 Procedures Procedure Name Priority Date/Time Associated Diagnosis Comments POCT GLUCOSE DEVICE Routine 04/13/2024 1 1:30 AM POST TENSIONING IRONWORKER HELPER POCT GLUCOSE DEVICE Routine 04/13/2024 8 :00 AM POST TENSIONING IRONWORKER HELPER EGFR Routine 04/13/2024 5:06 AM POST TENSIONING IRONWORKER HELPER CBC WITHOUT DIFFERENTIAL Routine 04/13/2024 5:06 AM POST TENSIONING IRONWORKER HELPER COMPREHENSIVE METABOLIC PANEL Routine 04/13/2024 5:06 AM POST TENSIONING IRONWORKER HELPER POCT GLUCOSE DEVICE Routine 04/13/2024 1 :57 AM POST TENSIONING IRONWORKER HELPER POCT GLUCOSE DEVICE Routine 04/12/2024 8 :29 PM POST TENSIONING IRONWORKER HELPER POCT GLUCOSE DEVICE Routine 04/12/2024 5 :29 PM POST TENSIONING IRONWORKER HELPER POCT GLUCOSE DEVICE Routine 04/12/2024 1 1:32 AM POST TENSIONING IRONWORKER HELPER POCT GLUCOSE DEVICE Routine 04/12/2024 7 :54 AM POST TENSIONING IRONWORKER HELPER EGFR Routine 04/12/2024 6:00 AM POST TENSIONING IRONWORKER HELPER CBC WITHOUT DIFFERENTIAL Routine 04/12/2024 6:00 AM POST TENSIONING IRONWORKER HELPER COMPREHENSIVE METABOLIC PANEL Routine 04/12/2024 6:00 AM POST TENSIONING IRONWORKER HELPER POCT GLUCOSE DEVICE Routine 04/12/2024 4 :35 AM POST TENSIONING IRONWORKER HELPER POCT GLUCOSE DEVICE Routine 04/12/2024 1 2:34 AM POST TENSIONING IRONWORKER HELPER POCT GLUCOSE DEVICE Routine 04/11/2024 9 :13 PM POST TENSIONING IRONWORKER HELPER POCT GLUCOSE DEVICE Routine 04/11/2024 6 :04 PM POST TENSIONING IRONWORKER HELPER POCT GLUCOSE DEVICE Routine 04/11/2024 2 :25 PM POST TENSIONING IRONWORKER HELPER POCT GLUCOSE DEVICE Routine 04/11/2024 1 2:10 PM POST TENSIONING IRONWORKER HELPER INFECTION PREVENTION VRE CULTURE Routine 04/11/2024 8:41 AM POST TENSIONING IRONWORKER HELPER H. PYLORI ANTIGEN, STOOL Routine 04/11/2024 8:41 AM POST TENSIONING IRONWORKER HELPER C. DIFFICILE TESTING Routine 04/11/2024 8:41 AM POST TENSIONING IRONWORKER HELPER STOOL CULTURE Routine 04/11/2024 8:41 AM POST TENSIONING IRONWORKER HELPER POCT GLUCOSE DEVICE Routine 04/11/2024 8 :30 AM POST TENSIONING IRONWORKER HELPER TROPONIN I HIGH-SENSITIVITY 6-HOUR Timed 04/11/2024 4:47 AM POST TENSIONING IRONWORKER HELPER CELL DIFFERENTIAL, BODY FLUID Routine 04/11/2024 3:51 AM POST TENSIONING IRONWORKER HELPER CELL COUNT W/REFLEX DIFFERENTIAL, BODY FLUID Routine 04/11/2024 3:51 AM POST TENSIONING IRONWORKER HELPER AEROBIC AND ANAEROBIC CULTURE AND GRAM STAIN Routine 04/11/2024 3:51 AM POST TENSIONING IRONWORKER HELPER POCT GLUCOSE DEVICE Routine 04/11/2024 3 :43 AM POST TENSIONING IRONWORKER HELPER SEPSIS LACTATE WITH REFLEX Timed 04/11/2024 3:41 AM POST TENSIONING IRONWORKER HELPER TROPONIN I HIGH-SENSITIVITY 4-HOUR Timed 04/11/2024 3:41 AM POST TENSIONING IRONWORKER HELPER CT ABDOMEN PELVIS W CONTRAST ED 04/11/2024 2:21 AM POST TENSIONING IRONWORKER HELPER ECG 12-LEAD Routine 04/11/2024 1:52 AM POST TENSIONING IRONWORKER HELPER TROPONIN I HIGH-SENSITIVITY 2-HOUR Timed 04/11/2024 1:48 AM POST TENSIONING IRONWORKER HELPER W[place] CRITICAL CARE ILL/INJURED PATIENT INIT 30-74 MIN Routine 04/11/2024 1:29 AM POST TENSIONING IRONWORKER HELPER XR CHEST 1 VIEW ED 04/11/2024 1:01 AM POST TENSIONING IRONWORKER HELPER SEPSIS LACTATE WITH REFLEX STAT 04/11/2024 12:17 AM POST TENSIONING IRONWORKER HELPER HEMOGLOBIN A1C STAT 04/10/2024 11:41 PM POST TENSIONING IRONWORKER HELPER CHOLESTEROL, LDL, DIRECT STAT 04/10/2024 11:41 PM POST TENSIONING IRONWORKER HELPER LIPID PANEL STAT 04/10/2024 11:41 PM POST TENSIONING IRONWORKER HELPER CRITICAL RESULT CALLBACK CARDIO CHEM STAT 04/10/2024 11:41 PM POST TENSIONING IRONWORKER HELPER EGFR STAT 04/10/2024 11:41 PM POST TENSIONING IRONWORKER HELPER TSH STAT 04/10/2024 11:41 PM POST TENSIONING IRONWORKER HELPER DIFFERENTIAL AUTO STAT 04/10/2024 11: 41 PM POST TENSIONING IRONWORKER HELPER TROPONIN I HIGH-SENSITIVITY SERIES (BASELINE, 2HR, 4HR, 6HR) STAT 04/10/2024 11:41 PM POST TENSIONING IRONWORKER HELPER COMPREHENSIVE METABOLIC PANEL STAT 04/10/2024 11:41 PM POST TENSIONING IRONWORKER HELPER CBC WITH AUTO DIFFERENTIAL STAT 04/10/2024 11:41 PM POST TENSIONING IRONWORKER HELPER RESPIRATORY PATHOGEN PANEL STAT 04/10/2024 11:41 PM POST TENSIONING IRONWORKER HELPER BLOOD CULTURE STAT 04/10/2024 11:41 PM POST TENSIONING IRONWORKER HELPER BLOOD CULTURE Routine 04/10/2024 11:41 PM POST TENSIONING IRONWORKER HELPER ECG 12-LEAD STAT 04/10/2024 11:15 PM POST TENSIONING IRONWORKER HELPER OCT, RETINA - OU - BOTH EYES Routine 03/09/2024 2:00 PM POST TENSIONING IRONWORKER HELPER Cystoid macular edema of both eyes from [...] tablet (80 mg total) by mouth nightly 12/04/20 22 Active aspirin 81 mg enteric coated tablet Take 1 tablet (81 mg total) by mouth daily with dinner 30 tablet 12/04/19 Active Additional Information Patient taking differently:81 mg [...] 300 + = 14 units Active FA-vit Xeqee-S-ingx-vitamin D3 (Dialyvite 800-Ultra D) 0.8-2,000 mg-unit tablet [...] to use Dexcom 100 each 10 06/27/19 Active Additional Information Patient not taking.Reported [...] - Patient returned to [facility] for ongoing care and follow up Assessment & Plan (03/09/2024 6:25 PM POST TENSIONING IRONWORKER HELPER): Vision OD trends mild improvement, though still [...] We discussed that genetic results would not ticket dispenser changer. Given we have exhausted available treatment without VA improvement, and CME is improving spontaneously, patient can follow in [facility]. Assessment & Plan (10/08/2023 2:51 PM CDT): [...] 2 weeks and have patient return to [facility] retina in 4 weeks for [...] 03/26/2021 Assessment & Plan (03/26/2021 1:17 PM POST TENSIONING IRONWORKER HELPER): Enlarged mild sella turcica on a routine [...] units Assessment & Plan (03/26/2021 1:17 PM POST TENSIONING IRONWORKER HELPER): Chronic, uncontrolled, improving A1c today 7.7 % [...] WNL Assessment & Plan (03/26/2021 1:16 PM POST TENSIONING IRONWORKER HELPER): Pt currently on Levothyroxine 112 mcg oral [...] 11/18/2018 Assessment & Plan (01/21/2019 2:02 PM POST TENSIONING IRONWORKER HELPER): Symptomatic. Will request for esophageal manometry. Continue [...] well Assessment & Plan (03/26/2021 1:16 PM POST TENSIONING IRONWORKER HELPER): On statin therapy Tolerating well Last lipid [...] nephrectomy. 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 [id number] Immunizations Immunization Administration Dates Next Due Hep [...] = 0.6 oz pur e alcohol) rarely [facility] Utilities Answer Date Recorded In the [...] often do you attend chur ch or yarsanism services? Never 03/25/2023 Do you belong to any clubs o r organizations such as buddhism groups, unions, fraternal or athletic groups, or [...] place to sleep or slept in a halfway (including now)? 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 Sex Male 2:23 AM POST TENSIONING IRONWORKER HELPER Gender Identity Not on file Sexual Orientation Not on file Occupation Industry Job Start Date Job End Date Retired Not on file Not on file Not on file Last Filed Vital Signs Vital Sign Reading Time Taken Comments Blood Pressure 154/73 04/13/2024 11:52 AM POST TENSIONING IRONWORKER HELPER Pulse 67 04/13/2024 8:33 AM POST TENSIONING IRONWORKER HELPER Temperature 36.7 C (98.1 F) 04/13/2024 8:33 AM POST TENSIONING IRONWORKER HELPER Respiratory Rate 16 04/13/2024 8:33 AM POST TENSIONING IRONWORKER HELPER Oxygen Saturation 98% 04/13/2024 8:33 AM POST TENSIONING IRONWORKER HELPER Inhaled Oxygen Concentration - - Weight 110.6 kg (243 lb 13.3 oz) 04/12/2024 8:00 PM POST TENSIONING IRONWORKER HELPER Height 172.7 cm (5' 8 ) 04/11/2024 3:40 PM POST TENSIONING IRONWORKER HELPER Body Mass Index 37.07 04/11/2024 3:40 PM POST TENSIONING IRONWORKER HELPER Results * POCT glucose (04/13/2024 11:30 AM POST TENSIONING IRONWORKER HELPER) Glucose, POC 143 70 - 199 mg/dL Blood 04/13/2024 11:3 0 AM POST TENSIONING IRONWORKER HELPER 04/13/2024 11:30 AM POST TENSIONING IRONWORKER HELPER Nicole Boo MD LAB POCT ORDERABLES - DEVIC E Final Result Performing Organization Address City/State/[facility] Co de Phone Number [facility] [place] [address] * POCT glucose (04/13/2024 8:00 AM POST TENSIONING IRONWORKER HELPER) Glucose, POC 117 70 - 199 mg/dL Blood 04/13/2024 8:00 AM POST TENSIONING IRONWORKER HELPER 04/13/2024 8:00 AM POST TENSIONING IRONWORKER HELPER Nicole Boo MD LAB POCT ORDERABLES - DEVIC E Final Result Performing Organization Address [facility] de Phone Number [facility] [place] [address] * (ABNORMAL) eGFR (04/13/2024 5:06 AM POST TENSIONING IRONWORKER HELPER) eGFR 5(L) >=60 mL/min/1. 73 m2 Comment: [...] last reviewed 2020. Blood 04/13/2024 5:06 AM POST TENSIONING IRONWORKER HELPER 04/13/2024 5:31 AM POST TENSIONING IRONWORKER HELPER Saul Engle MD LAB BLOOD ORDERABLES Final Resul t Performing Organization Address [facility]/State/ZIP Co de Phone Number [facility] [place] [address] * (ABNORMAL) CBC without differential (04/13/2024 5:06 AM POST TENSIONING IRONWORKER HELPER) Pathologist [facility] WBC 8.7 3.8 - 9.9 K/cumm Hgb 8.4(L) 13.0 - 17.5 g/dL [facility] Hct 25.4(L) 38.9 - 50.3 % [facility] Plt 214 150 - 400 K/cumm [facility] MPV 11.0 9.1 - 12.3 fL [facility] RBC 2.71(L) 4.30 - 5.80 M/cumm [facility] MCV 93.7 81.3 - 96.4 fL [facility] MCH 31.0 27.1 - 33.3 pg [facility] MCHC 33.1 32.3 - 35.7 g/dL [facility] RDW CV 15.9(H) 11.1 - 14.9 % [facility] RDW SD 52.7(H) 35.7 - 48.1 fL [facility] NRBC abs 0.02(H) 0.00 - 0.01 K/cumm [facility] Blood 04/13/2024 5:06 AM POST TENSIONING IRONWORKER HELPER 04/13/2024 5:31 AM POST TENSIONING IRONWORKER HELPER Saul Engle MD LAB BLOOD ORDERABLES Final Resul t [facility] [place] [address] * (ABNORMAL) Comprehensive metabolic panel (04/13/2024 5:06 AM POST TENSIONING IRONWORKER HELPER) Sodium 134(L) 135 - 145 mmol/L Potassium, pl 3.5 3.3 - 4.9 mmol/L [facility] Chloride 95(L) 97 - 110 mmol/L [facility] CO2 25 22 - 32 mmol/L [facility] Anion gap 14 2 - 15 mmol/L [facility] BUN 43(H) 6 - 25 mg/dL [facility] Creatinine 10.98(H) 0.80 - 1.30 mg/dL [facility] Glucose 125 70 - 199 mg/dL [facility] Comment: Interpretive Data Fasting glucose >/= [...] 2022. Calcium 8.2(L) 8.5 - 10.3 mg/dL [facility] Bilirubin, total 0.2 0.1 - 1.2 mg/dL [facility] Protein, pl 5.8(L) 6.5 - 8.5 g/dL [facility] Albumin 2.9(L) 3.5 - 5.0 g/dL [facility] Alk phos 41 40 - 130 Units/L [facility] ALT 18 7 - 55 Units/L [facility] AST 23 10 - 50 Units/L [facility] Blood 04/13/2024 5:06 AM POST TENSIONING IRONWORKER HELPER 04/13/2024 5:31 AM POST TENSIONING IRONWORKER HELPER us Saul Engle MD LAB BLOOD ORDERABLES Final Resul t [facility] [place] [address] * POCT glucose (04/13/2024 1:57 AM POST TENSIONING IRONWORKER HELPER) [facility] Signature Glucose, POC 151 70 - 199 mg/dL Blood 04/13/2024 1:57 AM POST TENSIONING IRONWORKER HELPER 04/13/2024 1:57 AM POST TENSIONING IRONWORKER HELPER us Nicole Boo MD LAB POCT ORDERABLES - DEVIC E Final Result Performing Organization Address [facility] de Phone Number [facility] [place] [address] * (ABNORMAL) POCT glucose (04/12/2024 8:29 PM POST TENSIONING IRONWORKER HELPER) Glucose, POC 215(H) 70 - 199 mg/dL Blood 04/12/2024 8:29 PM POST TENSIONING IRONWORKER HELPER 04/12/2024 8:29 PM POST TENSIONING IRONWORKER HELPER us Nicole Boo MD LAB POCT ORDERABLES - DEVIC E Final Result Performing Organization Address [facility] de Phone Number [facility] [place] [address] * (ABNORMAL) POCT glucose (04/12/2024 5:29 PM POST TENSIONING IRONWORKER HELPER) Glucose, POC 254(H) 70 - 199 mg/dL Blood 04/12/2024 5:29 PM POST TENSIONING IRONWORKER HELPER 04/12/2024 5:29 PM POST TENSIONING IRONWORKER HELPER us Nicole Boo MD LAB POCT ORDERABLES - DEVIC E Final Result Performing Organization Address [facility] [place] [address] * POCT glucose (04/12/2024 11:32 AM POST TENSIONING IRONWORKER HELPER) Glucose, POC 194 70 - 199 mg/dL Blood 04/12/2024 11:3 2 AM POST TENSIONING IRONWORKER HELPER 04/12/2024 11:32 AM POST TENSIONING IRONWORKER HELPER us Nicole Boo MD LAB POCT ORDERABLES - DEVIC E Final Result Performing Organization Address [facility] Co de Phone Number [facility] [place] [address] * POCT glucose (04/12/2024 7:54 AM POST TENSIONING IRONWORKER HELPER) Glucose, POC 166 70 - 199 mg/dL Blood 04/12/2024 7:54 AM POST TENSIONING IRONWORKER HELPER 04/12/2024 7:54 AM POST TENSIONING IRONWORKER HELPER us Saul Engle MD LAB POCT ORDERABLES - DEVICE Fin al Result Performing Organization Address [facility] de Phone Number [facility] Department [place] [address] * (ABNORMAL) eGFR (04/12/2024 6:00 AM POST TENSIONING IRONWORKER HELPER) eGFR 4(L) >=60 mL/min/1. 73 m2 Comment: [...] last reviewed 2020. Blood 04/12/2024 6:00 AM POST TENSIONING IRONWORKER HELPER 04/12/2024 6:18 AM POST TENSIONING IRONWORKER HELPER us Saul Engle MD LAB BLOOD ORDERABLES Final Resul t Performing Organization Address City/[facility] Co de Phone Number [facility] [place] [address] * (ABNORMAL) CBC without differential (04/12/2024 6:00 AM POST TENSIONING IRONWORKER HELPER) [facility] WBC 9.3 3.8 - 9.9 K/cumm Hgb 8.5(L) 13.0 - 17.5 g/dL [facility] Hct 25.6(L) 38.9 - 50.3 % [facility] Plt 225 150 - 400 K/cumm [facility] MPV 11.1 9.1 - 12.3 fL [facility] RBC 2.74(L) 4.30 - 5.80 M/cumm [facility] MCV 93.4 81.3 - 96.4 fL [facility] MCH 31.0 27.1 - 33.3 pg [facility] MCHC 33.2 32.3 - 35.7 g/dL [facility] RDW CV 15.7(H) 11.1 - 14.9 % [facility] RDW SD 52.7(H) 35.7 - 48.1 fL [facility] NRBC abs 0.02(H) 0.00 - 0.01 K/cumm [facility] Blood 04/12/2024 6:00 AM POST TENSIONING IRONWORKER HELPER 04/12/2024 6:18 AM POST TENSIONING IRONWORKER HELPER us Saul Engle MD LAB BLOOD ORDERABLES Final Resul t [facility] [place] [address] * (ABNORMAL) Comprehensive metabolic panel (04/12/2024 6:00 AM POST TENSIONING IRONWORKER HELPER) [facility] Sodium 140 135 - 145 mmol/L Potassium, pl 3.5 3.3 - 4.9 mmol/L [facility] Chloride 98 97 - 110 mmol/L [facility] CO2 27 22 - 32 mmol/L [facility] Anion gap 15 2 - 15 mmol/L [facility] BUN 49(H) 6 - 25 mg/dL [facility] Creatinine 11.24(H) 0.80 - 1.30 mg/dL [facility] Glucose 153 70 - 199 mg/dL [facility] Comment: Interpretive Data Fasting glucose >/= [...] 2022. Calcium 8.4(L) 8.5 - 10.3 mg/dL [facility] Bilirubin, total 0.2 0.1 - 1.2 mg/dL [facility] Protein, pl 5.5(L) 6.5 - 8.5 g/dL [facility] Albumin 3.0(L) 3.5 - 5.0 g/dL [facility] Alk phos 41 40 - 130 Units/L [facility] ALT 23 7 - 55 Units/L [facility] AST 30 10 - 50 Units/L [facility] Blood 04/12/2024 6:00 AM POST TENSIONING IRONWORKER HELPER 04/12/2024 6:18 AM POST TENSIONING IRONWORKER HELPER Saul Engle MD LAB BLOOD ORDERABLES Final Resul t Performing Organization Address [facility] Co de Phone Number [facility] [place] [address] * POCT glucose (04/12/2024 4:35 AM POST TENSIONING IRONWORKER HELPER) [facility] Glucose, POC 169 70 - 199 mg/dL Blood 04/12/2024 4:35 AM POST TENSIONING IRONWORKER HELPER 04/12/2024 4:35 AM POST TENSIONING IRONWORKER HELPER Saul Engle MD LAB POCT ORDERABLES - DEVICE Fin al Result Performing Organization Address [facility] [place] [address] * POCT glucose (04/12/2024 12:34 AM POST TENSIONING IRONWORKER HELPER) Glucose, POC 184 70 - 199 mg/dL Blood 04/12/2024 12:3 4 AM POST TENSIONING IRONWORKER HELPER 04/12/2024 12:34 AM POST TENSIONING IRONWORKER HELPER Saul Engle MD LAB POCT ORDERABLES - DEVICE Fin al Result Performing Organization Address [facility] [place] [address] * POCT glucose (04/11/2024 9:13 PM POST TENSIONING IRONWORKER HELPER) Glucose, POC 169 70 - 199 mg/dL Blood 04/11/2024 9:13 PM POST TENSIONING IRONWORKER HELPER 04/11/2024 9:13 PM POST TENSIONING IRONWORKER HELPER Saul Engle MD LAB POCT ORDERABLES - DEVICE Fin al Result Performing Organization Address [facility]/[place] [address] * POCT glucose (04/11/2024 6:04 PM POST TENSIONING IRONWORKER HELPER) Glucose, POC 161 70 - 199 mg/dL Blood 04/11/2024 6:04 PM POST TENSIONING IRONWORKER HELPER 04/11/2024 6:04 PM POST TENSIONING IRONWORKER HELPER Saul Engle MD LAB POCT ORDERABLES - DEVICE Fin al Result Performing Organization Address City/[facility] [place] [address] * (ABNORMAL) POCT glucose (04/11/2024 2:25 PM POST TENSIONING IRONWORKER HELPER) Glucose, POC 201(H) 70 - 199 mg/dL Comment:Glu2: RN/ Notified Glucose comment 1 Glu2: RN/MD Notified [facility] Blood 04/11/2024 2:25 PM POST TENSIONING IRONWORKER HELPER 04/11/2024 2:25 PM POST TENSIONING IRONWORKER HELPER Nicole Boo MD LAB POCT ORDERABLES - DEVIC E Final Result Performing Organization Address [facility] Co de Phone Number [facility] [place] [address] * POCT glucose (04/11/2024 12:10 PM POST TENSIONING IRONWORKER HELPER) Pathologist [facility] Glucose, POC 193 70 - 199 mg/dL Blood 04/11/2024 12:1 0 PM POST TENSIONING IRONWORKER HELPER 04/11/2024 12:10 PM POST TENSIONING IRONWORKER HELPER Nicole Boo MD LAB POCT ORDERABLES - DEVIC E Final Result Performing Organization Address [facility] de Phone Number [facility] [place] [address] * C. difficile testing Stool (04/11/2024 8:41 AM POST TENSIONING IRONWORKER HELPER) [facility] Result Negative Negative Toxin Result Negative Negative [facility] C. diff result Negative, free toxin Negative, free toxin [facility] C. diff interp Negative for toxigenic Clostridioides (Clostridium) difficile. Analysis was performed using a glutamate dehydrogenase antigen detection assay combined with a C. difficile toxin detection assay. [facility] Stool 04/11/2024 8:41 AM POST TENSIONING IRONWORKER HELPER 04/11/2024 11:19 AM POST TENSIONING IRONWORKER HELPER Nicole Boo MD LAB MICROBIOLOGY - GENERAL ORDERABLES Final Result Performing Organization Address [facility] Co de Phone Number [facility] [place] [address] * H. pylori antigen, stool Stool (04/11/2024 8:41 AM POST TENSIONING IRONWORKER HELPER) H. pylori Ag, stool Negative Negative Comment: Interpretative Data Testing performed at the [facility] using the Curian HpSA lateral [...] revised February 2020. Stool 04/11/2024 8:41 AM POST TENSIONING IRONWORKER HELPER 04/11/2024 11:20 AM POST TENSIONING IRONWORKER HELPER Nicole Boo MD LAB MICROBIOLOGY - GENERAL ORDERABLES Final Result Performing Organization Address City/[facility] Co de Phone Number [facility] [place] [address] * Infection Prevention VRE Culture Stool (04/11/2024 8:41 AM POST TENSIONING IRONWORKER HELPER) Report Final Report: Negative Stool 04/11/2024 8:41 AM POST TENSIONING IRONWORKER HELPER 04/11/2024 1:46 PM POST TENSIONING IRONWORKER HELPER Narrative [facility] - 04/13/2024 2:39 PM POST TENSIONING IRONWORKER HELPER Surveillance culture for Infection Prevention purposes only; results indicate colonization, not infection requiring treatment. Testing performed by [facility] ([phone]). Nicole Boo MD LAB MICROBIOLOGY - GENERAL ORDERABLES Final Result [facility] [place] [address] * Stool culture Stool Rectum (04/11/2024 8:41 AM POST TENSIONING IRONWORKER HELPER) Direct Specimen Exam Shiga Toxin Testing: Antigen detection assay for Shiga-toxin NEGATIVE for Shiga Toxin 1 and Shiga Toxin 2. Report Final Report: No growth of enteric bacterial pathogens [facility] Stool (Rectum) 04/11/2024 8: 41 AM POST TENSIONING IRONWORKER HELPER 04/11/2024 11:21 AM POST TENSIONING IRONWORKER HELPER Narrative [facility] - 04/15/2024 10:42 AM POST TENSIONING IRONWORKER HELPER Testing performed by [facility] ([phone]). Routine stool cultures include procedures to detect Salmonella, Shigella, Edwardsiella, Aeromonas, Pleisiomonas, Campylobacter, Yersinia, E. coli O157, and Shiga-like toxins. Vibrio is cultured only upon special request. If Vibrio is suspected, please call the laboratory at [phone]. Interpretive data was last updated June 24, 2016. Nicole Boo MD LAB MICROBIOLOGY - GENERAL ORDERABLES Final Result [facility] [place] [address] * POCT glucose (04/11/2024 8:30 AM POST TENSIONING IRONWORKER HELPER) Glucose, POC 150 70 - 199 mg/dL Blood 04/11/2024 8:30 AM POST TENSIONING IRONWORKER HELPER 04/11/2024 8:30 AM POST TENSIONING IRONWORKER HELPER Nicole Boo MD LAB POCT ORDERABLES - DEVIC E Final Result Performing Organization Address City/[facility]/ZIP Co de Phone Number [facility] [place] [address] * (ABNORMAL) Troponin I high-sensitivity 6-hour (04/11/2024 4:47 AM POST TENSIONING IRONWORKER HELPER) Trop I hs 193(H) <=35 ng/L Comment: Interpretive Data For further hscTnI resources including the diagnostic algorithm and an aid in interpretation, copy and paste this link: https://bjhlab.testcatalog.org/show/hsTrop-1 Current Interpretive Data last revised 2019. Trop I hs pct delta -13 % [facility] Trop I hs interp Equivocal [facility] Blood 04/11/2024 4:47 AM POST TENSIONING IRONWORKER HELPER 04/11/2024 5:05 AM POST TENSIONING IRONWORKER HELPER Roberto Medina MD LAB BLOOD ORDERABLES F inal Result Performing Organization Address [facility] Co de Phone Number [facility] [place] [address] * Cell Differential, Body Fluid (04/11/2024 3:51 AM POST TENSIONING IRONWORKER HELPER) Total cells diffed 100 cells Comment: Interpretive [...] % [facility] Fluid 04/11/2024 3:51 AM POST TENSIONING IRONWORKER HELPER 04/11/2024 5:30 AM POST TENSIONING IRONWORKER HELPER Saul Engle MD LAB BODY FLUIDS AND STOOLS ORDER MICHELLE Final Result Performing Organization Address [facility] de Phone Number [facility] [place] [address] * Cell count w/rflx diff, body fluid (04/11/2024 3:51 AM POST TENSIONING IRONWORKER HELPER) Specimen type, fld Dialysate Color, fld Straw [...] /cumm [facility] Fluid 04/11/2024 3:51 AM POST TENSIONING IRONWORKER HELPER 04/11/2024 5:30 AM POST TENSIONING IRONWORKER HELPER Result [facility] Saul Engle MD LAB BODY FLUIDS AND STOOLS ORDER MICHELLE Final Result Performing Organization Address [facility] de Phone Number [facility] [place] [address] * Aerobic and anaerobic culture and gram stain Peritoneal dialysis fluid Peritoneum (04/11/2024 3:51 AM POST TENSIONING IRONWORKER HELPER) Direct Specimen Exam Stain: Cytospin Gram stain shows: Rare polymorphonuclear leukocytes seen. Other cellular material present. No organisms seen. Report Final Report: No growth [facility] Peritoneal dialysis fluid (Peritoneum) 04/11/2024 3:51 AM POST TENSIONING IRONWORKER HELPER 04/11/2024 6:13 AM POST TENSIONING IRONWORKER HELPER Narrative [facility] - 04/17/2024 12:22 PM POST TENSIONING IRONWORKER HELPER Fluid specimen received. Testing performed by [facility] Microbiology Laboratory ([phone]) Specimens submitted from normally sterile body sites [...] ORDER MICHELLE Final Result Performing Organization Address [facility] Co de Phone Number [facility] [place] [address] * (ABNORMAL) POCT glucose (04/11/2024 3:43 AM POST TENSIONING IRONWORKER HELPER) Glucose, POC 223(H) 70 - 199 mg/dL Blood 04/11/2024 3:43 AM POST TENSIONING IRONWORKER HELPER 04/11/2024 3:43 AM POST TENSIONING IRONWORKER HELPER Result [facility] Saul Engle MD LAB POCT ORDERABLES - DEVICE Fin al Result Performing Organization Address [facility] Co de Phone Number [facility] [place] [address] * (ABNORMAL) Troponin I high-sensitivity 4-hour (04/11/2024 3:41 AM POST TENSIONING IRONWORKER HELPER) Trop I hs 192(H) <=35 ng/L Comment: Interpretive Data For further hscTnI resources including the diagnostic algorithm and an aid in interpretation, copy and paste this link: https://bjhlab.testcatalog.org/show/hsTrop-1 Current Interpretive Data last revised 2019. Trop I hs pct delta -14 % [facility] Trop I hs interp Equivocal [facility] Blood 04/11/2024 3:41 AM POST TENSIONING IRONWORKER HELPER 04/11/2024 4:09 AM POST TENSIONING IRONWORKER HELPER Roberto Medina MD LAB BLOOD ORDERABLES F inal Result Performing Organization Address [facility] de Phone Number [facility] [place] [address] * Sepsis Lactate w/ Reflex (04/11/2024 3:41 AM POST TENSIONING IRONWORKER HELPER) Sepsis Lactate 2.0 0.7 - 2.0 mmol/L Blood 04/11/2024 3:41 AM POST TENSIONING IRONWORKER HELPER 04/11/2024 3:48 AM POST TENSIONING IRONWORKER HELPER Roberto Medina MD LAB BLOOD ORDERABLES F inal Result Performing Organization Address [facility] Co de Phone Number [facility] [place] [address] * CT Abdomen Pelvis W Contrast (04/11/2024 2:21 AM POST TENSIONING IRONWORKER HELPER) Anatomical Region Laterality Modality Body N/A Computed Tomogra phy 04/11/2024 2:42 AM POST TENSIONING IRONWORKER HELPER Impressions 04/11/2024 1:21 PM POST TENSIONING IRONWORKER HELPER 1. Peritoneal dialysis catheter in place with [...] Wallace Mederos M.D. Narrative 04/11/2024 1:21 PM POST TENSIONING IRONWORKER HELPER EXAMINATION: Computed tomography of the abdomen and [...] Result * ECG 12-LEAD (04/11/2024 1:52 AM POST TENSIONING IRONWORKER HELPER) Narrative [facility] - 04/11/2024 1:52 AM POST TENSIONING IRONWORKER HELPER Olu Collins MD 04/11/2024 1:54 AM ECG [...] Roberto Medina MD ECG ORDERABLES Final Result [facility] * (ABNORMAL) Troponin I high-sensitivity 2-hour (04/11/2024 1:48 AM POST TENSIONING IRONWORKER HELPER) Trop I hs 214(C) <=35 ng/L Comment: Previous critical value noted within 48 hours ago. Interpretive Data For further hscTnI resources including the diagnostic algorithm and an aid in interpretation, copy and paste this link: https://bjhlab.testcatalog.org/show/hsTrop-1 Current Interpretive Data last revised 2019. Trop I hs pct delta -4 % [facility] Trop I hs interp Insignificant [facility] Blood 04/11/2024 1:48 AM POST TENSIONING IRONWORKER HELPER 04/11/2024 2:01 AM POST TENSIONING IRONWORKER HELPER Roberto Medina MD LAB BLOOD ORDERABLES F inal Result [facility] [place] [address] * [place] CRITICAL CARE ILL/INJURED PATIENT INIT 30-74 MIN (04/11/2024 1:29 AM POST TENSIONING IRONWORKER HELPER) Narrative Olu Collins MD - 04/11/2024 1:29 AM POST TENSIONING IRONWORKER HELPER Olu Collins MD 04/11/2024 5:14 AM Critical [...] spent time documenting in the medical record. Olu Collins MD IN CLINIC/BEDSIDE ORDERABLES Final Result * XR Chest 1 Vw Portable (04/11/2024 1:01 AM POST TENSIONING IRONWORKER HELPER) Anatomical Region Laterality Modality Body, Chest N/A Computed Radiogr aphy 04/11/2024 1:48 AM POST TENSIONING IRONWORKER HELPER Impressions 04/11/2024 1:25 PM POST TENSIONING IRONWORKER HELPER Comparison to 04/11/2024 No pneumothorax. Small lung [...] Wallace Mederos M.D. Narrative 04/11/2024 1:25 PM POST TENSIONING IRONWORKER HELPER EXAMINATION: 1 view chest radiograph Procedure Note [...] Sepsis Lactate w/ Reflex (04/11/2024 12:17 AM POST TENSIONING IRONWORKER HELPER) [facility] Sepsis Lactate 2.4(H) 0.7 - 2.0 mmol/L Blood 04/11/2024 12:1 7 AM POST TENSIONING IRONWORKER HELPER 04/11/2024 12:22 AM POST TENSIONING IRONWORKER HELPER Prek Bhavesh Medina MD LAB BLOOD ORDERABLES F inal Result [facility] [place] [address] * (ABNORMAL) Troponin I high-sensitivity series (baseline, 2hr, 4hr, 6hr) (04/10/2024 11:41 PM POST TENSIONING IRONWORKER HELPER) Trop I hs 223(C) <=35 ng/L Comment: Reviewed Interpretive Data For further hscTnI resources including the diagnostic algorithm and an aid in interpretation, copy and paste this link: https://bjhlab.testcatalog.org/show/hsTrop-[email or web address] Current Interpretive Data last revised 2019. Blood 04/10/2024 11:4 1 PM POST TENSIONING IRONWORKER HELPER 04/10/2024 11:54 PM POST TENSIONING IRONWORKER HELPER Premat Medina MD LAB BLOOD ORDERABLES F inal Result Performing Organization Address City/[facility]/ZIP Co de Phone Number [facility] [place] [address] * Critical result callback Cardio chemistry (04/10/2024 11:41 PM POST TENSIONING IRONWORKER HELPER) Pathologist [facility] Date Notified [id number] Time Notified 108 [facility] Test name Trop I hs [facility] Called/Read Back Olu [facility] Credentials MD [facility] Called By KIM [facility] Blood 04/10/2024 11:4 1 PM POST TENSIONING IRONWORKER HELPER 04/10/2024 11:54 PM POST TENSIONING IRONWORKER HELPER Premat Medina MD LAB BLOOD ORDERABLES F inal Result Performing Organization Address City/[facility] Co de Phone Number [facility] [place] [address] * (ABNORMAL) eGFR (04/10/2024 11:41 PM POST TENSIONING IRONWORKER HELPER) Pathologist [facility] eGFR 5(L) >=60 mL/min/1. 73 [...] reviewed 2020. Blood 04/10/2024 11:4 1 PM POST TENSIONING IRONWORKER HELPER 04/10/2024 11:55 PM POST TENSIONING IRONWORKER HELPER Sumit Baptiste MD LAB BLOOD ORDERABLES Kenna haider Result [facility] [place] [address] * (ABNORMAL) Differential, auto (04/10/2024 11:41 PM POST TENSIONING IRONWORKER HELPER) Pathologist [facility] Neutrophil abs 9.3(H) 1.5 - 6.5 K/cumm Imm gran abs 1.1(H) 0.0 - 0.1 K/cumm [facility] Lymphocyte abs 1.6 0.8 - 3.3 K/cumm [facility] Monocyte abs 1.0(H) 0.2 - 0.8 K/cumm [facility] Eosinophil abs 0.1 0.0 - 0.5 K/cumm [facility] Basophil abs 0.1 0.0 - 0.1 K/cumm [facility] Neutrophil pct 71.0 % [facility] Comment: Confirmed by smear review Interpretive Data Percent cell count reference ranges are not reported, since discordance with absolute values may lead to misinterpretation of CBC data. Current Interpretive Data was last revised on 2017. Imm gran pct 8.2 % [facility] Comment: Interpretive Data Percent cell count reference ranges are not reported, since discordance with absolute values may lead to misinterpretation of CBC data. Current Interpretive Data was last revised on 2017. Lymphocyte pct 12.3 % [facility] Comment: Interpretive Data Percent cell count reference ranges are not reported, since discordance with absolute values may lead to misinterpretation of CBC data. Current Interpretive Data was last revised on 2017. Monocyte pct 7.3 % [facility] Comment: Interpretive Data Percent cell count reference ranges are not reported, since discordance with absolute values may lead to misinterpretation of CBC data. Current Interpretive Data was last revised on 2017. Eosinophil pct 0.8 % [facility] Comment: Interpretive Data Percent cell count reference ranges are not reported, since discordance with absolute values may lead to misinterpretation of CBC data. Current Interpretive Data was last revised on 2017. Basophil pct 0.4 % [facility] Comment: Interpretive Data Percent cell count reference ranges are not reported, since discordance with absolute values may lead to misinterpretation of CBC data. Current Interpretive Data was last revised on 2017. Blood 04/10/2024 11:4 1 PM POST TENSIONING IRONWORKER HELPER 04/10/2024 11:54 PM POST TENSIONING IRONWORKER HELPER Sumit Baptiste MD LAB BLOOD ORDERABLES Kenna haider Result [facility] [place] [address] * Respiratory pathogen panel Nasopharyngeal (04/10/2024 11:41 PM POST TENSIONING IRONWORKER HELPER) Pathologist [facility] Influenza A RNA Not Detected Not Detected Influenza B RNA Not Detected Not Detected [facility] RSV RNA Not Detected Not Detected [facility] COVID-19 RNA Not Detected Not Detected [facility] Coronavirus 229E RNA Not Detected Not Detected [facility] Coronavirus HKU1 RNA Not Detected Not Detected [facility] Coronavirus NL63 RNA Not Detected Not Detected [facility] Coronavirus OC43 RNA Not Detected Not Detected [facility] Adenovirus DNA Not Detected Not Detected [facility] Metapneumovirus RNA Not Detected Not Detected [facility] Rhinovirus/Enterov irus RNA Not Detected Not Detected [facility] Parainfluenza 1 RNA Not Detected Not Detected [facility] Parainfluenza 2 RNA Not Detected Not Detected [facility] Parainfluenza 3 RNA Not Detected Not Detected [facility] Parainfluenza 4 RNA Not Detected Not Detected [facility] B. pertussis DNA Not Detected Not Detected [facility] B. parapertussis DNA Not Detected Not Detected [facility] C. pneumoniae DNA Not Detected Not Detected [facility] M. pneumoniae DNA Not Detected Not Detected [facility] Nasopharyngeal 04/10/2024 11 :41 PM POST TENSIONING IRONWORKER HELPER 04/11/2024 12:16 AM POST TENSIONING IRONWORKER HELPER Narrative [facility] - 04/11/2024 1:23 AM POST TENSIONING IRONWORKER HELPER Is the Patient experiencing symptoms consistent with COVID?->Unknown Surveillance testing for transplant patient?->No Interpretive Data The [employer] FilmArray Respiratory Panel (RP2.1) assay is a [...] assay has FDA clearance for testing of GLASS SMOOTHER swabs. The performance of additional specimen types has been assessed by the performing laboratory. The performance characteristics of this assay have been determined by [facility] Molecular Infectious Disease Laboratory. Current interpretive data was last revised on 21. us Prerak Bhavesh Medina MD LAB MICROBIOLOGY - GEN ERAL ORDERABLES Final Result [facility] [place] [address] * (ABNORMAL) CBC with auto differential (04/10/2024 11:41 PM POST TENSIONING IRONWORKER HELPER) WBC 13.1(H) 3.8 - 9.9 K/cumm Hgb 9.8(L) 13.0 - 17.5 g/dL [facility] Hct 30.3(L) 38.9 - 50.3 % [facility] Plt 272 150 - 400 K/cumm [facility] MPV 11.5 9.1 - 12.3 fL [facility] RBC 3.21(L) 4.30 - 5.80 M/cumm [facility] MCV 94.4 81.3 - 96.4 fL [facility] MCH 30.5 27.1 - 33.3 pg [facility] MCHC 32.3 32.3 - 35.7 g/dL [facility] RDW CV 15.8(H) 11.1 - 14.9 % [facility] RDW SD 54.0(H) 35.7 - 48.1 fL [facility] NRBC abs 0.00 0.00 - 0.01 K/cumm [facility] Blood 04/10/2024 11:4 1 PM POST TENSIONING IRONWORKER HELPER 04/10/2024 11:54 PM POST TENSIONING IRONWORKER HELPER Olu Collins MD LAB BLOOD ORDERABLES Final Re sult [facility] [place] [address] * Blood culture Blood (04/10/2024 11:41 PM POST TENSIONING IRONWORKER HELPER) Report Final Report: No growth Blood 04/10/2024 11:4 1 PM POST TENSIONING IRONWORKER HELPER 04/11/2024 1:59 AM POST TENSIONING IRONWORKER HELPER Narrative [facility] - 04/15/2024 7:01 AM POST TENSIONING IRONWORKER HELPER Collection->Peripheral 1. Blood cultures are incubated for [...] performance characteristics have been verified by the [facility] Microbiology Laboratory. For questions about this culture, contact the Microbiology Laboratory at [phone]. Interpretive data was last revised on 23. Roberto Medina MD LAB MICROBIOLOGY - GEN ERAL ORDERABLES Final Result Performing Organization Address City/[facility]/ZIP Co de Phone Number [facility] [place] [address] * Blood culture Blood (04/10/2024 11:41 PM POST TENSIONING IRONWORKER HELPER) Report Final Report: No growth Blood 04/10/2024 11:4 1 PM POST TENSIONING IRONWORKER HELPER 04/11/2024 1:59 AM POST TENSIONING IRONWORKER HELPER Narrative [facility] - 04/15/2024 7:01 AM POST TENSIONING IRONWORKER HELPER Collection->Peripheral 1. Blood cultures are incubated for [...] performance characteristics have been verified by the [facility] Microbiology Laboratory. For questions about this culture, contact the Microbiology Laboratory at [phone]. Interpretive data was last revised on 23. us Roberto Medina MD LAB MICROBIOLOGY - GEN ERAL ORDERABLES Final Result [facility] [place] [address] * TSH (04/10/2024 11:41 PM POST TENSIONING IRONWORKER HELPER) Thyroid Stimulating Hormone 3.20 0.30 - 4.20 mcIUnit/mL Blood 04/10/2024 11:4 1 PM POST TENSIONING IRONWORKER HELPER 04/10/2024 11:55 PM POST TENSIONING IRONWORKER HELPER Olu Collins MD LAB BLOOD ORDERABLES Final Re sult [facility] [place] [address] * Cholesterol, LDL, direct (04/10/2024 11:41 PM POST TENSIONING IRONWORKER HELPER) LDL Cholesterol, Direct 41 <=129 mg/dL Comment: [...] on 2017. Blood 04/10/2024 11:4 1 PM POST TENSIONING IRONWORKER HELPER 04/10/2024 11:55 PM POST TENSIONING IRONWORKER HELPER Narrative [facility] - 04/11/2024 6:09 PM POST TENSIONING IRONWORKER HELPER Cholesterol, LDL, direct reflexed based on Elevated Triglyceride (>400) Nicole Boo MD LAB BLOOD ORDERABLES Final Result [facility] [place] [address] * (ABNORMAL) Hemoglobin A1c (04/10/2024 11:41 PM POST TENSIONING IRONWORKER HELPER) Hgb A1C 7.0(H) 4.0 - 5.6 % Estimated Average Glucose 154 mg/dL [facility] Comment: The ADA recommends reporting an estimated Average Glucose (eAG) with all Hemoglobin A1c results using the equation derived from a study of 507 normal and diabetic adults. Minority populations were underrepresented and children were not included. (Diabetes Care 2020; 43(S1): S66-S76). The eAG is not equivalent to a fasting glucose. Blood 04/10/2024 11:4 1 PM POST TENSIONING IRONWORKER HELPER 04/10/2024 11:57 PM POST TENSIONING IRONWORKER HELPER us Saul Engle MD LAB BLOOD ORDERABLES Final Resul t [facility] [place] [address] * (ABNORMAL) Lipid panel (04/10/2024 11:41 PM POST TENSIONING IRONWORKER HELPER) Cholesterol 145 30 - 199 mg/dL Comment: [...] revised on 2017. Triglycerides 453(H) <=149 mg/dL [facility] Comment: Interpretive Data Ages [...] revised on 2023. Non-HDL Cholesterol 123 mg/dL [facility] Comment: Interpretive [...] last revised on 2017. Chol/HDL ratio 7 [facility] Blood 04/10/2024 11:4 1 PM POST TENSIONING IRONWORKER HELPER 04/10/2024 11:55 PM POST TENSIONING IRONWORKER HELPER us Nicole Boo MD LAB BLOOD ORDERABLES Final Result [facility] [place] [address] * (ABNORMAL) Comprehensive metabolic panel (04/10/2024 11:41 PM POST TENSIONING IRONWORKER HELPER) Sodium 141 135 - 145 mmol/L Potassium, pl 3.4 3.3 - 4.9 mmol/L [facility] Chloride 98 97 - 110 mmol/L [facility] CO2 27 22 - 32 mmol/L [facility] Anion gap 16(H) 2 - 15 mmol/L [facility] BUN 45(H) 6 - 25 mg/dL [facility] Creatinine 10.90(H) 0.80 - 1.30 mg/dL [facility] Glucose 240(H) 70 - 199 mg/dL [facility] Comment: Interpretive Data Fasting glucose >/= [...] 2022. Calcium 9.2 8.5 - 10.3 mg/dL [facility] Bilirubin, total 0.2 0.1 - 1.2 mg/dL [facility] Protein, pl 6.5 6.5 - 8.5 g/dL [facility] Albumin 3.1(L) 3.5 - 5.0 g/dL [facility] Alk phos 64 40 - 130 Units/L [facility] ALT 26 7 - 55 Units/L [facility] AST 30 10 - 50 Units/L [facility] Blood 04/10/2024 11:4 1 PM POST TENSIONING IRONWORKER HELPER 04/10/2024 11:55 PM POST TENSIONING IRONWORKER HELPER us Olu Collins MD LAB BLOOD ORDERABLES Final Re sult [facility] [place] [address] * (ABNORMAL) ECG 12-LEAD (04/10/2024 11:15 PM POST TENSIONING IRONWORKER HELPER) Narrative [facility] - 04/10/2024 11:15 PM POST TENSIONING IRONWORKER HELPER Mario Alberto Cornelius MD 04/10/2024 11:17 PM ECG 12 lead Date/Time: 04/10/2024 11:15 PM Performed by: Maroi Alberto Cornelius MD Authorized by: Sumit Baptiste [...] Date/Time: 04/10/2024 11:15 PM Performed by: Mario Alberot Cornelius MD Authorized by: Sumit Baptiste MD [...] the ED Mario Alberto Cornelius MD 04/10/24 [id number] Olu Collins MD ECG ORDERABLES Final Result [facility] * OCT, Retina - OU - Both Eyes (03/09/2024 2:00 PM POST TENSIONING IRONWORKER HELPER) Central Macular Thickness OS 227 micrometers CONTINUUM Central Macular Thickness OD 479 micrometers CONTINUUM Anatomical Region Laterality Modality Head Optical Coherenc e Tomography Narrative 03/16/2024 12:53 PM POST TENSIONING IRONWORKER HELPER Right Eye Quality was good. Scan locations [...]
--- OUTSIDE RECORDS SUMMARY | 2024-05-16 15:13 | XMS_ITS | Encounter Summary ---
Author Organization [facility] Address [facility] [place] [address] Care Team Providers Care Blanket Winder Operator Name Role Phone Deandre Bojorquez MD Unavailable [phone] Jeff Strickland MD Primary Care Provider [phone] Encounter Details Date Type Department Care Team (Late st Contact Info) Description 11/21/2023 Lab Requisition [facility] MAIN LAB [address] [place] [phone] Alan Davenport MD [facility]BD [place] [address] Social History Tobacco Use Types Packs/Day Years [...] Info) Description 06/16/2024 10:00 AM CDT Appointment [facility] NUCLEAR MEDICINE [address] [place] [address] Alan Davenport MD [address] DIV OF [facility] [place] [address] 06/16/2024 11:00 AM CDT Appointment [facility] NUCLEAR MEDICINE [address] [place] [address] Alan Davenport MD [address] DIV OF [facility] [place] [address] 06/16/2024 12:20 PM CDT Appointment [facility] CAT SCAN [facility] [place] [address] Alan Davenport MD [address] DIV OF [facility] [place] [address] 06/16/2024 1:00 PM CDT Appointment [facility] ECHO [address] [place] [address] Alan Davenport MD [address] DIV OF [facility] [place] [address] 06/16/2024 2:00 PM CDT Appointment [facility] US [address] [place] [address] Alan Davenport MD [address] DIV OF [facility] [place] [address] 06/16/2024 2:45 PM CDT Appointment [facility] DIAGNOSTIC RAD OP [address] [place] [address] Alan Dav[facility]port MD [address] [facility] [place] [address] 06/16/2024 2:50 PM CDT Appointment [facility] LAB OP DRAW STATION [address] [place] [address] Alan Davenport MD [address] [facility] DIV OF [facility] [place] [address] 06/23/2024 1:00 PM CDT Clinical Support [facility] TRANSPLANT [address] [place] [address] 08/04/2024 11:30 AM CDT Appointment [facility] MRI [address] [place] [address] Thomas Mendoza MD 1225 [facility] 2L [place] [address] 08/04/2024 1:30 PM CDT Office Visit [facility] - Urology [address] [place] [phone] Thomas Mendoza MD [facility] 2L [place] [phone] documented as of this encounter Procedures Procedure Name Priority Date/Time Associated Diagnosis Comments HOLD HLA SPECIMEN Routine 11/18/2023 12: 16 PM CDT documented in this encounter Results * HOLD HLA SPECIMEN (11/18/2023 12:16 PM CDT) Hold HLA Specimen 11/21/2023 1:31 PM CDT [facility] Comment:The Hold HLA specime n has been received into the lab and will be held for 5 years at 4 degrees. Blood BLOOD SPECIMEN / Unknown 11/18/2023 12:16 PM CDT 11/21/2023 12:17 PM CDT Alan Davenport MD LAB - BLOOD BANK ORD ERABLES [facility] [address] documented in this encounter Visit Diagnoses Not on filedocumented in this encounter Care Teams Blanket Winder Operator Relationship Specialty Start Date End Date eJff Strickland MD [address] [place] [address] PCP - General 03/05/18 [place] [address] [place] [address] Orthopedic Surgery 03/28/17 documented as of this encounter
--- OUTSIDE RECORDS SUMMARY | 2024-05-16 15:13 | XMS_ITS | CONTINUITY OF CARE DOCUMENT ---
Author Name sally zavala Address Unknown Organization [facility] Address [address] [facility] [address] [place] [address] Phone [phone] Care Team Providers Care Rental Agent Name Role Phone Jason Becerra MD Unavailable [phone] DONNIE WOOD MD Unavailable DONNIE WOOD MD [...] In-person encounter Office Visit Jason Becerra MD [facility] - In-person encounter Office Visit Jason Becerra MD [facility] Fatigue - In-person encounter Office Visit Jason Becerra MD [facility] Chest pain-type to be determined - In-person encounter Office Visit Jason Becerra MD [facility] Office - In-person encounter Office Visit Jason Becerra MD [facility] Cardiology examinationDiabetes, Type 2HyperlipidemiaHypertens ionDiastolic heart [...] Montemayor respiratory rate E&M 18 /min Amy oMntemayor pulse rate 70 /min Amy haider height [...] LinkLogic 3.5-5.2 sodium, serum 141 mmol/L LinkLogic [id number] 7875/09/26 urea nitrogen/creatini ne ratio, serum 19 LinkLogic [...] Statu s: 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 [id number] ADVANCE DIRECTIVES Name Date POWER OF MOTORMAN/WOMAN TREATMENT PLAN Date Name Performer Cardiology follow [...] BASIC METABOLIC PANE L W/EGFR DLCO - 55931 FRC - 20026 FVC - 63673 HISTORY OF PROCEDURES Procedure Date Procedure Name Provider Procedure Notes S tatus EKG Jason Becerra MD complete d Regadenoson, 4 units Jason Becerra MD completed Cardiolite, 2 units Jason Becerra MD completed SPECT Images Jason Becerra MD comple wendy Stress EKG Jason Becerra MD complete d FVC / MVV - 92085 Jason Becerra MD c ompleted BLOOD COUNT HEMOGLOBIN Jason Becerra MD completed FRC - 09976 Jason Becerra MD complet ed SpO2 w/o 6min walk/titration Jason Becerra MD completed DLCO - 05856 Jason nguyen DEMETRIS Becerra MD complete d
--- OUTSIDE RECORDS SUMMARY | 2024-05-16 15:13 | XMS_ITS ---
Author Organization [facility] Address [address] [place] [address] [place] [address] Care Team Providers Care Barrel Liner Name Role Phone DONNIE WOOD MD Primary Care Provider Robba Sergio Trujillo Unavailable [phone] REASON FOR VISIT BILAT SHOULDER JOINT INJECTION (NEED XRAY - BEING DONE AT [facility]) MEDICATIONS Medication SIG (Take, Route, Frequency, [...] Location Date Provider Diagnosis [facility] [address] [place] [phone] 03/08/2024 Sergio Rivera Primary osteoarthritis, unspecified shoulder [...] discharged home in good condition with a limo driver. X-ray time: 6 seconds Progress Notes [...] patient's typical axial low back pain. John's, Glady's and Gaenslen's are positive bilaterally. There is [...] Plan documen wendy:: Yes MIPS Quality 2020: [facility] Documented:: Compliant
--- OUTSIDE RECORDS SUMMARY | 2024-05-16 15:13 | XMS_ITS | Encounter Summary ---
Author Organization [facility] Address [address] [facility] [place] [address] Care Team Providers Care Junior Staff Accountant Name Role Phone Deandre Bojorquez MD Unavailable Jeff Strickland MD Primary Care Provider Encounter Details Date Type Department Care Team (Late st Contact Info) Description 02/07/2023 Lab Requisition [facility] MAIN LAB [address] [place] [phone] Alan Davenport MD [facility]1 [facility] OF [place]BD [place] [address] Social History Tobacco Use Types Packs/Day Years [...] AM CDT Appointment [facility] NUCLEAR MEDICINE [address] [place] [address] Alan Davenport MD [address] DIV OF [facility] [place] [address] 06/16/2024 11:00 AM CDT Appointment [facility] NUCLEAR MEDICINE [address] [place] [phone] Alan Davenport MD [address] DIV OF [facility] [place] [address] 06/16/2024 12:20 PM CDT Appointment [facility] CAT SCAN [facility] [place] [address] Alan Davenport MD [address] DIV OF [facility] [place] [address] 06/16/2024 1:00 PM CDT Appointment [facility] ECHO [address] [place] [address] Alan Davenport MD [address] DIV OF [facility] [place] [address] 06/16/2024 2:00 PM CDT Appointment [facility] US [address] [place] [address] Alan Davenport MD [address] DIV OF [facility] [place] [address] 06/16/2024 2:45 PM CDT Appointment [facility] DIAGNOSTIC RAD OP [address] [place] [address] Alan Davenport MD [address] [facility] [place] [address] 06/16/2024 2:50 PM CDT Appointment [facility] LAB OP DRAW STATION [address] [place] [address] Alan Davenport MD [address] [facility] DIV OF [facility] [place] [address] 06/23/2024 1:00 PM CDT Clinical Support [facility] TRANSPLANT [address] [place] [address] 08/04/2024 11:30 AM CDT Appointment [facility] MRI [address] [place] [address] Thomas Mendoza MD 1225 [facility] 2L [place] [address] 08/04/2024 1:30 PM CDT Office Visit [facility] - Urology [address] [place] [phone] Thomas Mendoza MD [address] [place] [address] 2L [place] [address] documented as of this encounter Procedures Procedure Name Priority Date/Time Associated Diagnosis Comments HOLD HLA SPECIMEN Routine 2023 7:5 8 AM TRANSFER CAR OPERATOR documented in this encounter Results * HOLD HLA SPECIMEN (2023 7:58 AM TRANSFER CAR OPERATOR) Hold HLA Specimen 02/07/2023 9:01 AM TRANSFER CAR OPERATOR [facility] Comment:The Hold HLA specime n has been received into the lab and will be held for 5 years at 4 degrees. Blood BLOOD SPECIMEN / Unknown 2023 7:58 AM TRANSFER CAR OPERATOR 02/07/2023 7:59 AM TRANSFER CAR OPERATOR Alan Davenport MD LAB - BLOOD BANK ORD ERABLES [facility] [address] [place] [address], [place] documented in this encounter Visit Diagnoses Not on filedocumented in this encounter Care Teams Junior Staff Accountant Relationship Specialty Start Date End Date Jeff Strickland MD [address] [place] [address] PCP - General 03/05/18 [place] [address] [place] [address] Orthopedic Surgery 03/28/17 documented as of this encounter
--- OUTSIDE RECORDS SUMMARY | 2024-05-16 15:13 | XMS_ITS ---
Author Organization [facility] Address [address] [facility] [place] [address] Care Team Providers Care Air Gun Operator Name Role Phone DONNIE WOOD MD Primary Care Provider Unavaila Sergio Trujillo Unavailable [phone] Encounters Encounter Location Date Provider Diagnosis [facility] [address] [facility] [place] [address] 03/31/2024 Sergio Rivera PLAN OF TREATMENT No Information
--- OUTSIDE RECORDS SUMMARY | 2024-05-16 15:13 | XMS_ITS ---
Author Organization [facility] Address [address] [place] [address] Care Team Providers Care Field Operations Technician Name Role Phone Deandre Bojorquez MD Unavailable [phone] Jeff Strickland MD Primary Care Provider [phone] Transplant Episode Kidney Candidate [facility] ([place], [place]) - [facility] Center waitlisted on 05/06/2022 Marked as Inactive on 12/19/2022 Reason: Temporarily too Sick Kidney CoordinatorSavanna Edwards RN Phone: N/A Fax: N/A Email: N/A Scores Score Value Updated Exceptions/Reas ons CPRA Not available EPTS (Calc) 95 05/16/2024 [place] Organ Diagnosis Organ Primary Contributory Kidney Diabetes Mellitus - Type II Hype rtensive Nephrosclerosis Care Team Name Role Phone Fax Email Savanna Edwards RN Kidney Coordinator N/A N/A N/A Alan Mccall MD Referring Physician N/A N/A N/A Anjali Mott LMSW Certified Adapted Physical Educator N/A N/A N/A Millie Lindquist Cork Compounder N/A N/A N/A Events Pre-Transplant Referred: 12/05/2021 Evaluation began: 12/13/2021 Committee: 05/02/2022 UNOS qualified: 01/17/2020 Center waitlisted: 05/06/2022 Dialysis History Dialysis History Start End Type Comments Center 01/17/2020 Peritoneal [facility] Information Center Phone Fax Address [facility] [phone] [address] [place] [address]
--- OUTSIDE RECORDS SUMMARY | 2024-05-16 15:13 | XMS_ITS | Encounter Summary ---
Author Organization [facility] Address [address] [place] [address] Phone Care Team Providers Care Graphic Pre Press Trades Worker Name Role Phone Jeff Strickland MD Primary Care Provider Chan Nicholas MD Unavailable [phone] Alan Mccall MD Unavailable [phone] Lorna Lantigua MD Unavailable [phone] Juliette Savage RN Unavailable Pepito Haro MD PhD Unavailable [phone] Solange Guido MD Unavailable Letha Gil RN Unavailable [phone] Encounter Details Date Type Department Care Team (Late st Contact Info) Description 05/02/2021 Ophth Exam [facility] Ophthalmology [address] [place] [address] 1st [place] [address] Corina Ventura MD PhD [address] [facility] 6 [place] [address] Social History Tobacco Use Types [...] on file Legal Sex Male 2:23 AM FLORAL CLERK Gender Identity Not on file Sexual Orientation [...] COVID: Suspected 03/24/2023 03/24/2023 03/24/2023 5:45 PM FLORAL CLERK COVID19 03/24/2023 03/24/2023 04/08/2023 3:06 AM FLORAL CLERK COVID: Recovered Comment:Added based on recent COVID infection. 04/08/2023 04/10/2023 07/07/2023 3:06 AM C DT COVID: Suspected 04/10/2024 04/10/2024 04/11/2024 1:24 AM FLORAL CLERK C. difficile suspected 04/11/2024 04/11/202404/11 1:21 PM FLORAL CLERK documented as of this encounter Eye Exam [...] arcade Normal Periphery Normal Normal Care Teams Graphic Pre Press Trades Worker Relationship Specialty Start Date End Date Jeff Strickland MD [address] [address] PCP - General Family Medicine 04/02/18 Chan Nicholas MD [facility] [address] [address] Consulting Physician Gastroenterology 11/24/18 Alan Mccall MD [facility] [address] [address] Referring Physician Nephrology 11/24/18 Lorna Lantigua MD [facility] [address] [address] Consulting Physician Cardiology 11/24/18 07/22/23 Juliette Savage, RN [address] [place] [address] Nurse Navigator 06/04/21 03/14/22 Pepito Haro MD PhD [address] [place] [address] Consulting Physician Neurosurgery 12/03/22 Solange Guido MD [address] [facility] [address] [place] [address] Referring Physician Cardiovascular Disease 07/23/23 Letha Gil, RN [address] [facility] [address] [place] [address] [facility] Outpatient Cad Draftsman 04/14/24 04/18/24 documented as of this encounter
--- OUTSIDE RECORDS SUMMARY | 2024-05-16 15:14 | XMS_ITS | Encounter Summary ---
Author Organization [facility] Address [facility] [address] Care Team Providers Care Ring Packer Name Role Phone Deandre Bojorquez MD Unavailable [phone] Jeff Strickland MD Primary Care Provider [phone] Encounter Details Date Type Department Care Team (Late st Contact Info) Description 04/29/2024 Lab Requisition [facility] MAIN LAB [address] [place] [address] Alan Davenport MD Formerly named [facility]1 [facility] OF ABD [place] [address] Social History Tobacco Use Types Packs/Day Years [...] Description 06/16/2024 10:00 AM CDT Appointment [facility] NUCLEAR MEDICINE [address] [place] [address] Alan Davenport MD [address] DIV OF [facility] [place] [address] 06/16/2024 11:00 AM CDT Appointment [facility] NUCLEAR MEDICINE [address] [place] [phone] Alan Davenport MD [address] DIV OF [facility] [place] [address] 06/16/2024 12:20 PM CDT Appointment [facility] CAT SCAN Formerly named [facility]1 [place] [address] Alan Davenport MD [address] DIV OF [facility] [place] [address] 06/16/2024 1:00 PM CDT Appointment [facility] ECHO [address] [place] [address] Alan Davenport MD [address] DIV OF [facility] [place] [address] 06/16/2024 2:00 PM CDT Appointment [facility] US [address] [place] [address] Alan Davenport MD [address] DIV OF [facility] [place] [address] 06/16/2024 2:45 PM CDT Appointment [facility] DIAGNOSTIC RAD OP [address] [place] [address] Alan Davenport MD [address] [facility] DIV OF [facility] [place] [address] 06/16/2024 2:50 PM CDT Appointment [facility] LAB OP DRAW STATION [address] [place] [address] Alan Davenport MD [address] S [facility] DIV OF [facility] [place] [address] 06/23/2024 1:00 PM CDT Clinical Support [facility] TRANSPLANT [address] [place] [address] 08/04/2024 11:30 AM CDT Appointment [facility] MRI [address] [place] [address] Thomas Mendoza MD [address] [facility] 2L DIV [place] [address] 08/04/2024 1:30 PM CDT Office Visit [facility] - Urology [address] [place] [phone] Thomas Mendoza MD [facility]5 [facility] 2L [place] [address] documented as of this encounter Procedures Procedure Name Priority Date/Time Associated Diagnosis Comments HOLD HLA SPECIMEN Routine 04/27/2024 1:4 8 PM CDT documented in this encounter Results * HOLD HLA SPECIMEN (04/27/2024 1:48 PM CDT) Hold HLA Specimen 04/29/2024 3:02 PM CDT [facility] Comment:The Hold HLA specime n has been received into the lab and will be held for 5 years at 4 degrees. Blood BLOOD SPECIMEN / Unknown 04/27/2024 1:48 PM CDT 04/29/2024 1:49 PM CDT Alan Davenport MD LAB - BLOOD BANK ORD ERABLES [facility] [address] [place] [address] documented in this encounter Visit Diagnoses Not on filedocumented in this encounter Care Teams Ring Packer Relationship Specialty Start Date End Date Jeff Strickland MD [address] [place] [address] PCP - General 03/05/18 [place] [address] [place] [address] Orthopedic Surgery 03/28/17 documented as of this encounter
--- OUTSIDE RECORDS SUMMARY | 2024-05-16 15:14 | XMS_ITS ---
Author Organization [facility] Address [address] [place] [address] [place] [address] Care Team Providers Care Electrogalvanizing Machine Operator Name Role Phone DONNIE WOOD MD Primary Care Provider Lance Sergio Trujillo Unavailable [phone] ALLERGIES No Known Allergies REASON FOR VISIT [...] Localized, primary osteoarthritis of the shoulder region ([id number]) VITAL SIGNS Blood pressure systolic 112 mm Hg 03/03/19 25 Blood pressure diastolic 62 mm Hg 025 Heart Rate 59 /min 03/03/2024 Respiratory Rate 18 /min 03/03/2024 Height 5 ft 9 in in 03/03/2024 Weight 229 lbs 03/03/2024 BMI 33.81 kg/m2 03/03/2024 Encounters Encounter Location Date Provider Diagnosis [facility] [address] [place] [address] 03/03/2024 Sergio Stynowick Pain in left knee M25.562 ; Primary osteoarthritis, unspecified shoulder M19.019 ; Other chest pain R07.89 ; Radiculopathy, lumbar region M54.16 ; Other intervertebral disc degeneration, lumbar region M51.36 ; 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 John's, Catlett's and Gaenslen's are positive bilaterally. There is [...] and Follow-up: Follow-up Plan doclana wendy:: Yes [facility] Quality 2020: MIPS Documented:: Compliant
--- OUTSIDE RECORDS SUMMARY | 2024-05-16 15:14 | XMS_ITS | Clinical Summary ---
Author Organization [facility] Address Formerly [facility] [place] [address] Care Team Providers Care Assembler Final Name Role Phone Jeff Strickland MD Primary [...] by mouth nightly at bedtime. Active Multiple Vitamins-[place] als (PRESERVISION AREDS 2 OR) Take 1 [...] e alcohol) [facility] Utilities Answer Date Recorded In the past 12 months has th e electric, gas, oil, or water [email or web address] threatened to shut off services in your [...] in a long term (including now)? No 05/02/2023 Sex and Gender Information Value Date Recorded Sex Assigned at Not on file Legal Sex Male 10:10 AM ROPEWALK ROPE MAKER Gender Identity Not on file Sexual Orientation [...] discharge from hospital Lifestyle No Alice Rizzo, [facility] Insurance [employer] Advance Directives * Full Code (Latest Code Status on File) Date Activated Date Inactivated Comments 05/02/2023 12:46 AM 05/03/2023 12:26 PM Care Teams Assembler Final Relationship Specialty Start Date End Date Jeff Strickland MD [address] [facility] [address] [place] [address] PCP - General FAMILY PRACTICE 02/22/23
--- OUTSIDE RECORDS SUMMARY | 2024-05-16 15:14 | XMS_ITS | Clinical Summary ---
Author Organization [facility] milligan Address [address] [address] Phone Care Team Providers Care Rigger Supervisor Name Role Phone Jeff Strickland MD Primary Care Provider [phone] Allergies No known active allergies Medications Medication [...] tablet 3 11/29/2019 Active Continuous Blood Gluc Cash Van Salesperson (FreeStyle Em Convent) device 1 each daily 12/01/2019 Active Continuous Blood Gluc Sensor (FreeStyle Em Sensor System) misc 1 each once every 2 weeks 12/01/2019 Active Lancets (OneTouch Delica Plus [id number]) misc OneTouch Delica Plus Lancet 33 gauge [...] 11/10/2019 Overview (12/17/2019): Kendall Carl 1955 Referring Undergraduate Internship: Alan Mccall Dialysis Info: NOD GFR 13 Type: Time: (Not currently on dialysis) days Blood Type: O NEG Body mass index is 37.36 kg/m . ALERTS Self Pay Specialist: needs to establish Past Medical History: Diagnosis Date Arthropathy RA. Dr Strickland manages. CHF (congestive heart failure) 2 yrs ago Mailer Apprentice is Dr. Becerra in [place]. CKD (chronic kidney disease), stage V Community acquired pneumonia 2018 [facility] hospitalized. Diabetes mellitus 20 years. Lantus pen. Esophageal reflux takes med Hypercholesteremia 5-10 yrs meds Hypertension takes meds Hypothyroidism meds 20 years Kidney stones 5-6 years ago had 2 in the same year. Malignancy right kidney 2012 Obstructive sleep apnea 3 years. [facility]. Angela remember doctors name Renal cell [...] is the impression of this social service liaison that Kendall Carl has several positive factors for Kidney transplant candidacy from a psychosocial perspective. Patient appears to have appropriate knowledge of illness. Patient has sufficient insurance coverage and stable financial situation for post transplant needs. No concerns regarding substance abuse, legal issues, or mental health needs. Patient has adequate support system and appropriate discharge plan. Plan: pantry goods worker to provide supportive services as needed. Patient appears to be a reasonable candidate for transplant from a psychosocial perspective. -Post transplant arrangement forms are needed prior to being listed. -Updated toxicology results needed, per protocol Psychiatric Consult Recommended: No Transplant Talent Acquisition Relationship Manager: Joy Tam LCSW RD: 11/09/2019 BMI= 36.2, [...] use my fitness pal or my food career coach) - Consume no more than 2000 [...] nephrectomy. 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 [id number] Immunizations Name Administration Dates Next Due Influenza [...] (#1) 2023 9, 04/10/2016, 04/09/2016 Care Teams Rigger Supervisor Relationship Specialty Start Date End Date Jeff Strickland MD [address] [place] [address] PCP - General Internal Medicine 07/15/18
--- OUTSIDE RECORDS SUMMARY | 2024-05-16 15:14 | XMS_ITS | Continuity of Care Document ---
Author Organization [place] Self Representation Document Preparation [place] Address [address] [facility] [address] [place] [address] Phone Care Team Providers Care Ladle Repairman Name Role Phone Olu Payan Unavailable Unavailable [...] Diagnoses Date Provider Providers Copied on Encounter [facility] [address], [place], [place], [id number], tel:[phone] [place] No Information [id number] [place] [address], [address], [place], [place], [facility], . tel: [phone] [address] [place] [address], [place], [place], [id number], tel:[phone] [place] No Information 4 Genoveva Mcdonald. . Referring Provider: Jeff Strickland [address] [place] [address] [address], [place], [place], [facility]. tel:[phone] [address], [place], [place], [id number], tel:[phone] [place] No Information 4 Gladis Olu. [address] [place] [address], [address], [place], [place], [facility], . tel: [phone] Referring Provider: Yanira Chin [facility] [address], [place], [facility]. tel:[phone] [address] [address], [place], [place], [id number], tel:[phone] [place] No Information 4 Gladis Raines. [address] [place] [address], [address], [place], [place], [facility], . tel: [phone] Referring Provider: Yanira Chin [facility] [address], [place], [address]. tel:[phone], [id number], tel:[phone] [place] No Information 4 Jacinto Fairchild. . Referring Provider: Yanira Chin [facility] [address], [place], [address]. tel:[phone], [place], [place], [id number], [place] tel:[phone] [place] No Information 4 Jacinto Fairchild. . Referring Provider: Jeff Strickland [address] [place] [address] [address], [place], [facility]. tel:[phone], [id number], tel:[phone] [place] No Information 4 Genoveva Mcdonald. . Referring Provider: Jeff Strickland [address] [place] [address] [address], [place], [facility]. tel:[phone], [id number], tel:[phone] [place] No Information 4 Gladis Raines. [address] [facility], [address], [place], [facility], . tel: [phone] Referring Provider: Jeff Strickland [address] [place] [address] [address], [place], [facility]. tel:[phone], [id number], tel:[phone] [place] No Information 0 4 Genoveva Mcdonald. . Referring Provider: Jeff Strickland [address] [place] [address] [address], [place], [facility]. tel:[phone], [place], [id number], [place] tel:[phone] [place] No Information 0 4 Gladis Raines. [address] [facility], [address], [place], [place], [facility], . tel: [phone] Referring Provider: Jeff Strickland [address] [place] [address] [address], [place], [facility]. tel:[phone] Family History Family Member Type Diagnosis Age At Onset No Information Payers Payer name Insurance type Covered republican ID Diego suarez(ernesto Hadley [id number] Social History Type Description Quantity Date Captured [...]
--- OUTSIDE RECORDS SUMMARY | 2024-05-16 15:14 | XMS_ITS | Clinical Summary ---
Author Organization [facility] Address [address] [place] [address] Phone Care Team Providers Care Escrow Closer Name Role Phone Jeff Strickland MD Primary Care Provider [phone] Allergies No known active allergies Medications pantoprazole [...] tablet Take 112 mcg by mouth daily flume tender. Active aspirin (ANGELLA) 325 mg tablet Take 325 mg by mouth daily. Active Vit C-Vit H-Kdcjcw-PuDb-L utein (PRESERVISION) 226 mg-200 unit -5 mg-0.8 [...] Department Care Team Description 03/03/2024 2:05 PM MARBLE SUPERVISOR Ancillary Procedure [facility] [address] [place] [address] Sergio Rivera MD Pain in [...] Comments Blood Pressure 167/77 02/04/2019 9:16 AM MARBLE SUPERVISOR Pulse 64 02/04/2019 9:16 AM MARBLE SUPERVISOR Temperature 36.5 C (97.7 F) 02/04/2019 9:16 AM MARBLE SUPERVISOR Respiratory Rate 16 02/04/2019 9:16 AM MARBLE SUPERVISOR Oxygen Saturation 97% 02/04/2019 9:16 AM MARBLE SUPERVISOR Inhaled Oxygen Concentration - - Weight 113.4 kg (250 lb) 02/04/2019 9:16 AM MARBLE SUPERVISOR Height 175.3 cm (5' 9 ) 02/04/2019 9:16 AM MARBLE SUPERVISOR Body Mass Index 36.92 02/04/2019 9:16 AM MARBLE SUPERVISOR Plan of Treatment Health Maintenance Due Date [...] 2+ VW BILAT Routine 03/03/2024 2:26 PM MARBLE SUPERVISOR Pain in shoulder region, left Pain in shoulder region, right from Last 3 Months Results * XR SHOULDER 2+ VW BILAT (03/03/2024 2:26 PM MARBLE SUPERVISOR) Anatomical Region Laterality Modality Upper Extremity Computed Radiogr aphy 03/03/2024 2:27 PM MARBLE SUPERVISOR Impressions 03/03/2024 2:34 PM MARBLE SUPERVISOR IMPRESSION: 1. 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 Narrative 03/03/2024 2:34 PM MARBLE SUPERVISOR EXAM: XR SHOULDER 2+ VW BILAT DATE: [...] BCBS BLUE ACCESS/TRUE BLUE PPO Care Teams Escrow Closer Relationship Specialty Start Date End Date Jeff Strickland MD [address] [facility] [address] [place] [address] PCP - General Family Practice 01/01/19
--- NOTE | 2024-05-16 15:43 | PC.NURSE ---
Patient hit call light as this nurse was going into room to assess patient. Patient states that he does not want to wait this long and is deciding to leave. Patient states I feel better since getting back here . Patient also states It's just the flu so I think that's why I am feeling this way .
--- OUTSIDE RECORDS SUMMARY | 2024-05-16 15:55 | XMS_ITS | Encounter Summary ---
Author Organization [facility] Address [facility] [facility] [place] [address] Care Team Providers Care Chief Green Officer Name Role Phone Deandre Bojorquez MD Unavailable [phone] Jeff Strickland MD Primary Care Provider [phone] Encounter Details Date Type Department Care Team (Late st Contact Info) Description 07/31/2023 Lab Requisition [facility] MAIN LAB [address] [place] [phone] Alan Davenport MD [facility] [place] [address] Social History Tobacco Use Types Packs/Day Years [...] Description 06/16/2024 10:00 AM CDT Appointment [facility] NUCLEAR MEDICINE [address] [place] [phone] Alan Davenport MD [address] DIV OF [facility] [place] [address] 06/16/2024 11:00 AM CDT Appointment [facility] NUCLEAR MEDICINE [address] [place] [phone] Alan Davenport MD [address] DIV OF [facility] [place] [address] 06/16/2024 12:20 PM CDT Appointment [facility] CAT SCAN [facility] [place] [address] Alan Davenport MD [address] DIV OF [facility] [place] [address] 06/16/2024 1:00 PM CDT Appointment [facility] ECHO [address] [place] [address] Alan Davenport MD [address] DIV OF [facility] [place] [address] 06/16/2024 2:00 PM CDT Appointment [facility] US [address] [place] [address] Alan Davenport MD [address] DIV OF [facility] [place] [address] 06/16/2024 2:45 PM CDT Appointment [facility] DIAGNOSTIC RAD OP [address] [place] [address] Alan Davenport MD [address] [facility] [facility] DIV OF [facility] [place] [address] 06/16/2024 2:50 PM CDT Appointment [facility] LAB OP DRAW STATION [address] [place] [address] Alan Davenport MD [address] [facility] DIV OF [facility] [place] [address] 06/23/2024 1:00 PM CDT Clinical Support [facility] TRANSPLANT [address] [place] [address] 08/04/2024 11:30 AM CDT Appointment [facility] MRI [facility] [place] [address] Thomas Mendoza MD [address] [facility] 2L [place] [address] 08/04/2024 1:30 PM CDT Office Visit [facility] - Urology [address] [place] [phone] Thomas Mendoza MD [facility] 2L [place] [address] documented as of this encounter Procedures Procedure Name Priority Date/Time Associated Diagnosis Comments HOLD HLA SPECIMEN Routine 07/23/2023 2:0 5 PM CDT documented in this encounter Results * HOLD HLA SPECIMEN (07/23/2023 2:05 PM CDT) Hold HLA Specimen 07/31/2023 3:32 PM CDT [facility] Comment:The Hold HLA specime n has been received into the lab and will be held for 5 years at 4 degrees. Blood BLOOD SPECIMEN / Unknown 07/23/2023 2:05 PM CDT 07/31/2023 2:06 PM CDT Alan Davenport MD LAB - BLOOD BANK ORD ERABLES [facility] [address] [place] [address], [facility] documented in this encounter Visit Diagnoses Not on filedocumented in this encounter Care Teams Chief Green Officer Relationship Specialty Start Date End Date Jeff Strickland MD [address] [place] [address] PCP - General 03/05/18 [place] [address] [place] [address] Orthopedic Surgery 03/28/17 documented as of this encounter
--- OUTSIDE RECORDS SUMMARY | 2024-05-16 15:55 | XMS_ITS | Encounter Summary ---
Author Organization [facility] Address 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 Name Role Phone Deandre Bojorquez MD Unavailable [phone] Jeff Strickland MD Primary Care Provider [phone] Encounter Details Date Type Department Care Team (Late st Contact Info) Description 02/04/2024 Lab Requisition [facility] MAIN LAB [address] [place] [phone] Alan Davenport MD [facility]1 [facility] OF ABD [place] [address] Social History Tobacco Use Types Packs/Day Years [...] Info) Description 06/16/2024 10:00 AM CDT Appointment [facility] NUCLEAR MEDICINE [address] [place] [address] Alan Davenport MD [address] DIV OF [facility] [place] [address] 06/16/2024 11:00 AM CDT Appointment [facility] NUCLEAR MEDICINE [address] [place] [address] Alan Davenport MD [address] DIV OF [facility] [place] [address] 06/16/2024 12:20 PM CDT Appointment [facility] CAT SCAN [facility] [place] [address] Alan Davenport MD [address] DIV OF [facility] [place] [address] 06/16/2024 1:00 PM CDT Appointment [facility] ECHO [address] [place] [address] Alan Davenport MD [address] DIV OF [facility] [place] [address] 06/16/2024 2:00 PM CDT Appointment [facility] US [address] [place] [address] Alan Davenport MD [address] DIV OF [facility] [place] [address] 06/16/2024 2:45 PM CDT Appointment [facility] DIAGNOSTIC RAD OP [address] [place] [address] Alan Davenport MD [address] [facility] [place] [address] 06/16/2024 2:50 PM CDT Appointment [facility] LAB OP DRAW STATION [address] [place] [address] Alan Davenport MD [address] [facility] [address] [address] DIV OF [facility] [place] [address] 06/23/2024 1:00 PM CDT Clinical Support [facility] TRANSPLANT [address] [place] [address] 08/04/2024 11:30 AM CDT Appointment [facility] MRI [facility]1 [place] [address] Thomas Mendoza MD [address] [facility] 2L DIV [place]IC [place] [address] 08/04/2024 1:30 PM CDT Office Visit [facility] - Urology [address] [place] [phone] Thomas Mendoza MD [address] [place] [address] [address] DIV [place] [address] documented as of this encounter Procedures Procedure Name Priority Date/Time Associated Diagnosis Comments HOLD HLA SPECIMEN Routine 01/27/2024 3:2 3 PM LOAN CLERK documented in this encounter Results * HOLD HLA SPECIMEN (01/27/2024 3:23 PM LOAN CLERK) Hold HLA Specimen 02/04/2024 4:31 PM LOAN CLERK [facility]) Comment:The Hold HLA specime n has been received into the lab and will be held for 5 years at 4 degrees. Blood BLOOD SPECIMEN / Unknown 01/27/2024 3:23 PM LOAN CLERK 02/04/2024 3:23 PM LOAN CLERK Alan Davenport MD LAB - BLOOD BANK ORD ERABLES [facility] [address] [place] [address], [facility] documented in this encounter Visit Diagnoses Not on filedocumented in this encounter Care Teams Paper Bags Sewing Machine Operator Relationship Specialty Start Date End Date Jeff Strickland MD [address] [place] [address] PCP - General 03/05/18 [place] [address] [place] [address] Orthopedic Surgery 03/28/17 documented as of this encounter
--- OUTSIDE RECORDS SUMMARY | 2024-05-16 15:55 | XMS_ITS | Referral Summary ---
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 [place] [address] * Aerobic and anaerobic culture and gram stain Peritoneal dialysis fluid Peritoneum (04/11/2024 3:51 AM AUDIO/VISUAL OPERATOR) Direct Specimen Exam Stain: Cytospin Gram stain shows: Rare polymorphonuclear leukocytes seen. Other cellular material present. No organisms seen. Report Final Report: No growth [facility] Peritoneal dialysis fluid (Peritoneum) 04/11/2024 3:51 AM AUDIO/VISUAL OPERATOR 04/11/2024 6:13 AM AUDIO/VISUAL OPERATOR Narrative [facility] - 04/17/2024 12:22 PM AUDIO/VISUAL OPERATOR Fluid specimen received. Testing performed by [facility] ([phone]) Specimens submitted from normally sterile body sites [...] ORDER MICHELLE Final Result Performing Organization Address [facility] Co de Phone Number [facility] Department [place] [address] * (ABNORMAL) POCT glucose (04/11/2024 3:43 AM AUDIO/VISUAL OPERATOR) Pathologist [facility] Glucose, POC 223(H) 70 - 199 mg/dL Blood 04/11/2024 3:43 AM AUDIO/VISUAL OPERATOR 04/11/2024 3:43 AM AUDIO/VISUAL OPERATOR Saul Engle MD LAB POCT ORDERABLES - DEVICE Fin al Result Performing Organization Address [facility] Co de Phone Number [facility] [place] [address] * (ABNORMAL) Troponin I high-sensitivity 4-hour (04/11/2024 3:41 AM AUDIO/VISUAL OPERATOR) Trop I hs 192(H) <=35 ng/L Comment: Interpretive Data For further hscTnI resources including the diagnostic algorithm and an aid in interpretation, copy and paste this link: https://bjhlab.testcatalog.org/show/hsTrop-1 Current Interpretive Data last revised 2019. Trop I hs pct delta -14 % [facility] Trop I hs interp Equivocal [facility] Blood 04/11/2024 3:41 AM AUDIO/VISUAL OPERATOR 04/11/2024 4:09 AM AUDIO/VISUAL OPERATOR Premat Medina MD LAB BLOOD ORDERABLES F inal Result Performing Organization Address [facility] Co de Phone Number [facility] [place] [address] * Sepsis Lactate w/ Reflex (04/11/2024 3:41 AM AUDIO/VISUAL OPERATOR) Pathologist [facility] Sepsis Lactate 2.0 0.7 - 2.0 mmol/L Blood 04/11/2024 3:41 AM AUDIO/VISUAL OPERATOR 04/11/2024 3:48 AM AUDIO/VISUAL OPERATOR Premat Medina MD LAB BLOOD ORDERABLES F inal Result Performing Organization Address [facility] Co de Phone Number [facility] [place] [address] * CT Abdomen Pelvis W Contrast (04/11/2024 2:21 AM AUDIO/VISUAL OPERATOR) Anatomical Region Laterality Modality Body N/A Computed Tomogra phy 04/11/2024 2:42 AM AUDIO/VISUAL OPERATOR Impressions 04/11/2024 1:21 PM AUDIO/VISUAL OPERATOR 1. Peritoneal dialysis catheter in place [...] Wallace Mederos M.D. Narrative 04/11/2024 1:21 PM AUDIO/VISUAL OPERATOR EXAMINATION: Computed tomography of the abdomen [...] Result * ECG 12-LEAD (04/11/2024 1:52 AM AUDIO/VISUAL OPERATOR) Narrative [facility] - 04/11/2024 1:52 AM AUDIO/VISUAL OPERATOR Olu Collins MD 04/11/2024 1:54 AM [...] Roberto Medina MD ECG ORDERABLES Final Result [facility] * (ABNORMAL) Troponin I high-sensitivity 2-hour (04/11/2024 1:48 AM AUDIO/VISUAL OPERATOR) Trop I hs 214(C) <=35 ng/L [...] [facility] Blood 04/11/2024 1:48 AM AUDIO/VISUAL OPERATOR 04/11/2024 2:01 AM AUDIO/VISUAL OPERATOR Roberto Medina MD LAB BLOOD ORDERABLES F inal Result [facility] Department [place] [address] * SC CRITICAL CARE ILL/INJURED PATIENT INIT 30-74 MIN (04/11/2024 1:29 AM AUDIO/VISUAL OPERATOR) Narrative Oul Collins MD - 04/11/2024 1:29 AM AUDIO/VISUAL OPERATOR Olu Collins MD 04/11/2024 5:14 AM [...] Chest 1 Vw Portable (04/11/2024 1:01 AM AUDIO/VISUAL OPERATOR) Anatomical Region Laterality Modality Body, Chest N/A Computed Radiogr aphy 04/11/2024 1:48 AM AUDIO/VISUAL OPERATOR Impressions 04/11/2024 1:25 PM AUDIO/VISUAL OPERATOR Comparison to 04/11/2024 No pneumothorax. Small [...] Wallace Mederos M.D. Narrative 04/11/2024 1:25 PM AUDIO/VISUAL OPERATOR EXAMINATION: 1 view chest radiograph Procedure [...] Sepsis Lactate w/ Reflex (04/11/2024 12:17 AM AUDIO/VISUAL OPERATOR) [facility] Sepsis Lactate 2.4(H) 0.7 - 2.0 mmol/L Blood 04/11/2024 12:1 7 AM AUDIO/VISUAL OPERATOR 04/11/2024 12:22 AM AUDIO/VISUAL OPERATOR us Prerak Bhavesh Medina MD LAB BLOOD ORDERABLES F inal Result [facility] Department [place] [address] * (ABNORMAL) Troponin I high-sensitivity series (baseline, 2hr, 4hr, 6hr) (04/10/2024 11:41 PM AUDIO/VISUAL OPERATOR) [facility] Trop I hs 223(C) <=35 ng/L Comment: Reviewed Interpretive Data For further hscTnI resources including the diagnostic algorithm and an aid in interpretation, copy and paste this link: https://bjhlab.testcatalog.org/show/hsTrop-1 Current Interpretive Data last revised 2019. Blood 04/10/2024 11:4 1 PM AUDIO/VISUAL OPERATOR 04/10/2024 11:54 PM AUDIO/VISUAL OPERATOR Roberto Medina MD LAB BLOOD ORDERABLES F inal Result Performing Organization Address City/[facility]/ZIP Co de Phone Number [facility] Department [place] [address] * Critical result callback Cardio chemistry (04/10/2024 11:41 PM AUDIO/VISUAL OPERATOR) Date Notified [id number] Time Notified 108 [facility] Test name Trop I hs [facility] Called/Read Back Olu SIMPSON Credentials MD [facility] Called By [facility] Blood 04/10/2024 11:4 1 PM AUDIO/VISUAL OPERATOR 04/10/2024 11:54 PM AUDIO/VISUAL OPERATOR Roberto Medina MD LAB BLOOD ORDERABLES F inal Result Performing Organization Address [facility] Co de Phone Number [facility] [place] [address] * (ABNORMAL) eGFR (04/10/2024 11:41 PM AUDIO/VISUAL OPERATOR) eGFR 5(L) >=60 mL/min/1. 73 m2 [...] reviewed 2020. Blood 04/10/2024 11:4 1 PM AUDIO/VISUAL OPERATOR 04/10/2024 11:55 PM AUDIO/VISUAL OPERATOR us Sumit Baptiste MD LAB BLOOD ORDERABLES Kenna haider Result [facility] Department [place] [address] * (ABNORMAL) Differential, auto (04/10/2024 11:41 PM AUDIO/VISUAL OPERATOR) Neutrophil abs 9.3(H) 1.5 - 6.5 K/cumm Imm gran abs 1.1(H) 0.0 - 0.1 K/cumm [facility] Lymphocyte abs 1.6 0.8 - 3.3 K/cumm [facility] Monocyte abs 1.0(H) 0.2 - 0.8 K/cumm [facility] Eosinophil abs 0.1 0.0 - 0.5 K/cumm [facility] Basophil abs 0.1 0.0 - 0.1 K/cumm [facility] Neutrophil pct 71.0 % [facility] Comment: Confirmed by smear review Interpretive Data Percent cell count reference ranges are not reported, since discordance with absolute values may lead to misinterpretation of CBC data. Current Interpretive Data was last revised on 2017. Imm gran pct 8.2 % [facility] Comment: Interpretive Data Percent cell count reference ranges are not reported, since discordance with absolute values may lead to misinterpretation of CBC data. Current Interpretive Data was last revised on 2017. Lymphocyte pct 12.3 % [facility] Comment: Interpretive Data Percent cell count reference ranges are not reported, since discordance with absolute values may lead to misinterpretation of CBC data. Current Interpretive Data was last revised on 2017. Monocyte pct 7.3 % [facility] Comment: Interpretive Data Percent cell count reference ranges are not reported, since discordance with absolute values may lead to misinterpretation of CBC data. Current Interpretive Data was last revised on 2017. Eosinophil pct 0.8 % [facility] Comment: Interpretive Data Percent cell count reference ranges are not reported, since discordance with absolute values may lead to misinterpretation of CBC data. Current Interpretive Data was last revised on 2017. Basophil pct 0.4 % [facility] Comment: Interpretive Data Percent cell count reference ranges are not reported, since discordance with absolute values may lead to misinterpretation of CBC data. Current Interpretive Data was last revised on 2017. Blood 04/10/2024 11:4 1 PM AUDIO/VISUAL OPERATOR 04/10/2024 11:54 PM AUDIO/VISUAL OPERATOR Sumit Pepito Baptiste MD LAB BLOOD ORDERABLES Kenna haider Result [facility] Department [place] [address] * Respiratory pathogen panel Nasopharyngeal (04/10/2024 11:41 PM AUDIO/VISUAL OPERATOR) Pathologist [facility] Influenza A RNA Not Detected Not Detected Influenza B RNA Not Detected Not Detected [facility] RSV RNA Not Detected Not Detected [facility] COVID-19 RNA Not Detected Not Detected [facility] Coronavirus 229E RNA Not Detected Not Detected [facility] Coronavirus HKU1 RNA Not Detected Not Detected [facility] Coronavirus NL63 RNA Not Detected Not Detected [facility] Coronavirus OC43 RNA Not Detected Not Detected [facility] Adenovirus DNA Not Detected Not Detected [facility] Metapneumovirus RNA Not Detected Not Detected [facility] Rhinovirus/Enterov irus RNA Not Detected Not Detected [facility] Parainfluenza 1 RNA Not Detected Not Detected [facility] Parainfluenza 2 RNA Not Detected Not Detected [facility] Parainfluenza 3 RNA Not Detected Not Detected [facility] Parainfluenza 4 RNA Not Detected Not Detected [facility] B. pertussis DNA Not Detected Not Detected [facility] B. parapertussis DNA Not Detected Not Detected [facility] C. pneumoniae DNA Not Detected Not Detected [facility] M. pneumoniae DNA Not Detected Not Detected [facility] Nasopharyngeal 04/10/2024 11 :41 PM AUDIO/VISUAL OPERATOR 04/11/2024 12:16 AM AUDIO/VISUAL OPERATOR Narrative [facility] - 04/11/2024 1:23 AM AUDIO/VISUAL OPERATOR Is the Patient experiencing symptoms consistent with COVID?->Unknown Surveillance testing for transplant patient?->No Interpretive Data [employer] FilmArray Respiratory Panel (RP2.1) assay is a [...] assay has FDA clearance for testing of SNIPPER swabs. The performance of additional specimen types has been assessed by the performing laboratory. The performance characteristics of this assay have been determined by [facility] Molecular Infectious Disease Laboratory. Current interpretive data was last revised on 21. Roberto Medina MD LAB MICROBIOLOGY - GEN ERAL ORDERABLES Final Result [facility] Department [place] [address] * (ABNORMAL) CBC with auto differential (04/10/2024 11:41 PM AUDIO/VISUAL OPERATOR) WBC 13.1(H) 3.8 - 9.9 K/cumm Hgb 9.8(L) 13.0 - 17.5 g/dL [facility] Hct 30.3(L) 38.9 - 50.3 % [facility] Plt 272 150 - 400 K/cumm [facility] MPV 11.5 9.1 - 12.3 fL [facility] RBC 3.21(L) 4.30 - 5.80 M/cumm [facility] MCV 94.4 81.3 - 96.4 fL [facility] MCH 30.5 27.1 - 33.3 pg [facility] MCHC 32.3 32.3 - 35.7 g/dL [facility] RDW CV 15.8(H) 11.1 - 14.9 % [facility] RDW SD 54.0(H) 35.7 - 48.1 fL [facility] NRBC abs 0.00 0.00 - 0.01 K/cumm [facility] Blood 04/10/2024 11:4 1 PM AUDIO/VISUAL OPERATOR 04/10/2024 11:54 PM AUDIO/VISUAL OPERATOR Olu Collins MD LAB BLOOD ORDERABLES Final Re sult [facility] [place] [address] * Blood culture Blood (04/10/2024 11:41 PM AUDIO/VISUAL OPERATOR) Report Final Report: No growth Blood 04/10/2024 11:4 1 PM AUDIO/VISUAL OPERATOR 04/11/2024 1:59 AM AUDIO/VISUAL OPERATOR Narrative [facility] - 04/15/2024 7:01 AM AUDIO/VISUAL OPERATOR Collection->Peripheral 1. Blood cultures are incubated [...] performance characteristics have been verified by the [facility]. For questions about this culture, contact the Microbiology Laboratory at [phone]. Interpretive data was last revised on 23. us Prerak Bhavesh Medina MD LAB MICROBIOLOGY - GEN ERAL ORDERABLES Final Result Performing Organization Address City/[facility]/ZIP Co de Phone Number [facility] Department [place] [address] * Blood culture Blood (04/10/2024 11:41 PM AUDIO/VISUAL OPERATOR) Report Final Report: No growth Blood 04/10/2024 11:4 1 PM AUDIO/VISUAL OPERATOR 04/11/2024 1:59 AM AUDIO/VISUAL OPERATOR Narrative [facility] - 04/15/2024 7:01 AM AUDIO/VISUAL OPERATOR Collection->Peripheral 1. Blood cultures are incubated [...] performance characteristics have been verified by the [facility]. For questions about this culture, contact the Microbiology Laboratory at [phone]. Interpretive data was last revised on 23. Roberto Medina MD LAB MICROBIOLOGY - GEN ERAL ORDERABLES Final Result Performing Organization Address City/[facility]/ZIP Co de Phone Number [facility] [place] [address] * TSH (04/10/2024 11:41 PM AUDIO/VISUAL OPERATOR) Thyroid Stimulating Hormone 3.20 0.30 - 4.20 mcIUnit/mL Blood 04/10/2024 11:4 1 PM AUDIO/VISUAL OPERATOR 04/10/2024 11:55 PM AUDIO/VISUAL OPERATOR Olu Collins MD LAB BLOOD ORDERABLES Final Re sult Performing Organization Address City/[facility]/ZIP Co de Phone Number [facility] [place] [address] * Cholesterol, LDL, direct (04/10/2024 11:41 PM AUDIO/VISUAL OPERATOR) LDL Cholesterol, Direct 41 <=129 mg/dL [...] on 2017. Blood 04/10/2024 11:4 1 PM AUDIO/VISUAL OPERATOR 04/10/2024 11:55 PM AUDIO/VISUAL OPERATOR Narrative [facility] - 04/11/2024 6:09 PM AUDIO/VISUAL OPERATOR Cholesterol, LDL, direct reflexed based on Elevated Triglyceride (>400) us Nicole Boo MD LAB BLOOD ORDERABLES Final Result [facility] [place] [address] * (ABNORMAL) Hemoglobin A1c (04/10/2024 11:41 PM AUDIO/VISUAL OPERATOR) Hgb A1C 7.0(H) 4.0 - 5.6 % Estimated Average Glucose 154 mg/dL [facility] Comment: The ADA recommends reporting an estimated Average Glucose (eAG) with all Hemoglobin A1c results using the equation derived from a study of 507 normal and diabetic adults. Minority populations were underrepresented and children were not included. (Diabetes Care 2020; 43(S1): S66-S76). The eAG is not equivalent to a fasting glucose. Blood 04/10/2024 11:4 1 PM AUDIO/VISUAL OPERATOR 04/10/2024 11:57 PM AUDIO/VISUAL OPERATOR us Saul Engle MD LAB BLOOD ORDERABLES Final Resul t [facility] Department [place] [address] * (ABNORMAL) Lipid panel (04/10/2024 11:41 PM AUDIO/VISUAL OPERATOR) Cholesterol 145 30 - 199 mg/dL Comment: [...] on 2017. Triglycerides 453(H) <=149 mg/dL [facility] Comment: Interpretive Data Ages < or = [...] on 2017. HDL 22(L) >=40 mg/dL [facility] Comment: Interpretive Data Ages < or = [...] on 2017. LDL, calculated See Comment <=129 [facility] Comment: Unable to calculate LDL due [...] revised on 2023. Non-HDL Cholesterol 123 mg/dL [facility] Comment: Interpretive Data Ages < [...] last revised on 2017. Chol/HDL ratio 7 [facility] Blood 04/10/2024 11:4 1 PM AUDIO/VISUAL OPERATOR 04/10/2024 11:55 PM AUDIO/VISUAL OPERATOR us Nicole Boo MD LAB BLOOD ORDERABLES Final Result [facility] Department [place] [address] * (ABNORMAL) Comprehensive metabolic panel (04/10/2024 11:41 PM AUDIO/VISUAL OPERATOR) Sodium 141 135 - 145 mmol/L Potassium, pl 3.4 3.3 - 4.9 mmol/L [facility] Chloride 98 97 - 110 mmol/L [facility] CO2 27 22 - 32 mmol/L [facility] Anion gap 16(H) 2 - 15 mmol/L [facility] BUN 45(H) 6 - 25 mg/dL [facility] Creatinine 10.90(H) 0.80 - 1.30 mg/dL [facility] Glucose 240(H) 70 - 199 mg/dL [facility] Comment: Interpretive Data Fasting glucose [...] 2022. Calcium 9.2 8.5 - 10.3 mg/dL [facility] Bilirubin, total 0.2 0.1 - 1.2 mg/dL [facility] Protein, pl 6.5 6.5 - 8.5 g/dL [facility] Albumin 3.1(L) 3.5 - 5.0 g/dL [facility] Alk phos 64 40 - 130 Units/L [facility] ALT 26 7 - 55 Units/L [facility] AST 30 10 - 50 Units/L [facility] Blood 04/10/2024 11:4 1 PM AUDIO/VISUAL OPERATOR 04/10/2024 11:55 PM AUDIO/VISUAL OPERATOR us Olu Collins MD LAB BLOOD ORDERABLES Final Re sult [facility] [place] [address] * (ABNORMAL) ECG 12-LEAD (04/10/2024 11:15 PM AUDIO/VISUAL OPERATOR) Narrative [facility] - 04/10/2024 11:15 PM AUDIO/VISUAL OPERATOR Mario Alberto Cornelius MD 04/10/2024 11:17 [...] the ED Mario Alberto Cornelius MD 04/10/24 [id number] Olu Collins MD ECG ORDERABLES Final Result [facility] * OCT, Retina - OU - Both Eyes (03/09/2024 2:00 PM AUDIO/VISUAL OPERATOR) Central Macular Thickness OS 227 micrometers CONTINUUM Central Macular Thickness OD 479 micrometers CONTINUUM Anatomical Region Laterality Modality Head [facility]heren[facility] e Tomography Narrative 03/16/2024 12:53 PM AUDIO/VISUAL OPERATOR Right Eye Quality was good. Scan [...] Advance Directives For more information, please contact: [phone] * Full Code (Latest Code Status on [...] 3:52 PM 06/08/2021 9:56 PM Care Teams Roofer Relationship Specialty Start Date End Date Jeff Strickland MD [address] [place] [address] PCP - General Family Medicine 04/02/18 Chan Nicholas MD [address] [facility] [address] [place] [address] Consulting Physician Gastroenterology 11/24/18 Alan Mccall MD [address] [facility] [address] [place] [address] Referring Physician Nephrology 11/24/18 Pepito Haro MD PhD [address] [place] [address] Consulting Physician Neurosurgery 12/03/22 Solange Guido MD [address] [facility] [address] [place] [address] Referring Physician Cardiovascular Disease 07/23/23
--- OUTSIDE RECORDS SUMMARY | 2024-05-16 15:55 | XMS_ITS ---
Author Organization [facility] Address [facility] [place] [address] Care Team Providers Care Public Health Technician Name Role Phone Jeff Strickland MD Primary Care Provider Chan Nicholas MD Unavailable [phone] Alan Mccall MD Unavailable [phone] Pepito Haro MD PhD Unavailable Solange Guido MD Unavailable [phone] Active Problems Problem Noted Date Diagnosed Date [...] further PDT. 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 Given we have exhausted available treatment without VA improvement, and CME is improving spontaneously, patient can follow in [facility]. Assessment & Plan (10/08/2023 2:51 PM [...] 2 weeks and have patient return to [facility] retina in 4 weeks for [...] 03/26/2021 Assessment & Plan (03/26/2021 1:17 PM TAB MACHINE OPERATOR): Enlarged mild sella turcica on a [...] units Assessment & Plan (03/26/2021 1:17 PM TAB MACHINE OPERATOR): Chronic, uncontrolled, improving A1c today 7.7 [...] WNL Assessment & Plan (03/26/2021 1:16 PM TAB MACHINE OPERATOR): Pt currently on Levothyroxine 112 mcg [...] 11/18/2018 Assessment & Plan (01/21/2019 2:02 PM TAB MACHINE OPERATOR): Symptomatic. Will request for esophageal manometry. [...] well Assessment & Plan (03/26/2021 1:16 PM TAB MACHINE OPERATOR): On statin therapy Tolerating well Last [...] nephrectomy. 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 [id number] Current Treatment and Therapy Plans No current [...] were not included. Kendall Carl 1955 Referring Finish Filer: Alan Mccall Dialysis Info: NOD GFR 13 Type: Time: (Not currently on dialysis) days Blood Type: O NEG Body mass index is 37.36 kg/m . ALERTS Returned Item Clerk: needs to establish Past Medical History: Diagnosis Date Arthropathy RA. Dr Strickland manages. 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 CKD (chronic kidney disease), stage V Community acquired pneumonia 2018 [facility] hospitalized. Diabetes mellitus 20 years. Lantus pen. Esophageal reflux takes med Hypercholesteremia 5-10 yrs meds Hypertension takes meds Hypothyroidism meds 20 years Kidney stones 5-6 years ago had 2 in the same year. Malignancy right kidney 2012 Obstructive sleep apnea 3 years. [facility]. Angela remember doctors name Renal cell [...] file Gets together: Not on file Attends adventist service: Not on file Active member of [...] is the impression of this social work faculty member that Kendall Carl has several positive factors for Kidney transplant candidacy from a psychosocial perspective. Patient appears to have appropriate knowledge of illness. Patient has sufficient insurance coverage and stable financial situation for post transplant needs. No concerns regarding substance abuse, legal issues, or mental health needs. Patient has adequate support system and appropriate discharge plan. 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 Patient appears to be a reasonable candidate for transplant from a psychosocial perspective. -Post transplant arrangement forms are needed prior to being listed. -Updated toxicology results needed, per protocol Psychiatric Consult Recommended: No Transplant Tableau Developer: Joy Tam LCSW RD: 11/09/2019 BMI= [...] use my fitness pal or my food transformation coach) - Consume no more than 2000 calories a day E-mailed pt's a 2000 calorie, CKD meal plan. Items Still Pending: Clinic, colonoscopy Acute pain of left shoulder 01/25/2019 03/25/2023 Non-cardiac chest pain 11/18/201803/25 Assessment & Plan (01/21/2019 2:02 PM TAB MACHINE OPERATOR): The pain is persistent. The patient [...] has had extensive cardiac workup by the product safety lead including coronary angiogram. He has chest pain [...]
--- OUTSIDE RECORDS SUMMARY | 2024-05-16 15:55 | XMS_ITS | Continuity of Care Document ---
Author Organization [facility] Address [address] [facility] [address] [place] [address] Phone Care Team Providers Care Life Skills Coach Name Role Phone Olu Payan Unavailable Unavailable [...] Date Provider Providers Copied on Encounter [facility] [place], [place], [id number], tel:[phone] [place] No Information 4 Gladis Olu. [address] [place] [address], [address], [place], [place], [facility], . tel: [phone] [address] [place] [address], [place], [place], [id number], tel:[phone] [place] No Information 4 Genoveva Mcdonald. . Referring Provider: Jeff Strickland [address] [place] [address] [address], [place], [place], [facility]. tel:[phone] [place] [address], [place], [place], [id number], tel:[phone] [place] No Information 4 Gladis Olu. [address] [place] [address], [address], [place], [place], [facility], . tel: [phone] Referring Provider: Yanira Chin [facility] [address], [place], [place], [facility]. tel:[phone] [place] [address], [place], [place], [id number], tel:[phone] [place] No Information 4 Gladis Raines. [address] [place] [address], [address], [place], [place], [facility], . tel: [phone] Referring Provider: Yanira Chin [facility] [address], [place], [address]. tel:[phone], [id number], tel:[phone] [place] No Information 4 Jacinto Fairchild. . Referring Provider: Yanira Chin [facility] [address], [place], [address]. tel:[phone], [place], [place], [id number], [place] tel:[phone] [place] No Information 4 Jacinto Fairchild. . Referring Provider: Jeff Strickland [address] [place] [address] [address], [place], [place], [facility]. tel:[phone], [id number], tel:[phone] [place] No Information 4 Genoveva Mcdonald. . Referring Provider: Jeff Strickland [address] [place] [address] [address], [place], [place], [facility]. tel:[phone], [id number], tel:[phone] [place] No Information [address] [facility], [address], [place], [facility], . tel: [phone] Referring Provider: Jeff Strickland [address] [place] [address] [address], [place], [place], [facility]. tel:[phone], [id number], tel:[phone] [place] No Information 0 4 Genoveva Mcdonald. . Referring Provider: Jeff Strickland [address] [place] [address] [address], [place], [facility]. tel:[phone], [place], [id number], [place] tel:[phone] [place] No Information [address] [facility], [address], [place], [place], [facility], . tel: [phone] Referring Provider: Jeff Strickland [address] [place] [address] [address], [place], [place], [facility]. tel:[phone] Family History Family Member Type Diagnosis Age At Onset No Information Payers Payer name Insurance type Covered alliance party ID Diego suarez(ernesto Hadley [id number] Social History Type Description Quantity Date Captured [...]
--- OUTSIDE RECORDS SUMMARY | 2024-05-16 15:56 | XMS_ITS | Clinical Summary ---
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 stain Peritoneal dialysis fluid Peritoneum (04/11/2024 3:51 AM SPICE FUMIGATOR) Direct Specimen Exam Stain: Cytospin Gram stain shows: Rare polymorphonuclear leukocytes seen. Other cellular material present. No organisms seen. Report Final Report: No growth [facility] Peritoneal dialysis fluid (Peritoneum) 04/11/2024 3:51 AM SPICE FUMIGATOR 04/11/2024 6:13 AM SPICE FUMIGATOR Narrative [facility] - 04/17/2024 12:22 PM SPICE FUMIGATOR Fluid specimen received. Testing performed by [facility] ([phone]) Specimens submitted from normally sterile body sites [...] ORDER MICHELLE Final Result Performing Organization Address City/[facility]/ZIP Co de Phone Number [facility] [place] [address] * (ABNORMAL) POCT glucose (04/11/2024 3:43 AM SPICE FUMIGATOR) Pathologist [facility] [place] Glucose, POC 223(H) 70 - 199 mg/dL Blood 04/11/2024 3:43 AM SPICE FUMIGATOR 04/11/2024 3:43 AM SPICE FUMIGATOR Saul Engle MD LAB POCT ORDERABLES - DEVICE Fin al Result [facility] [place] [address] * (ABNORMAL) Troponin I high-sensitivity 4-hour (04/11/2024 3:41 AM SPICE FUMIGATOR) Pathologist [facility] [place] Trop I hs 192(H) <=35 ng/L Comment: Interpretive Data For further hscTnI resources including the diagnostic algorithm and an aid in interpretation, copy and paste this link: https://bjhlab.testcatalog.org/show/hsTrop-1 Current Interpretive Data last revised 2019. Trop I hs pct delta -14 % [facility] Trop I hs interp Equivocal [facility] Blood 04/11/2024 3:41 AM SPICE FUMIGATOR 04/11/2024 4:09 AM SPICE FUMIGATOR Roberto Medina MD LAB BLOOD ORDERABLES F inal Result Performing Organization Address [facility] de Phone Number [facility] [place] [address] * Sepsis Lactate w/ Reflex (04/11/2024 3:41 AM SPICE FUMIGATOR) Sepsis Lactate 2.0 0.7 - 2.0 mmol/L Blood 04/11/2024 3:41 AM SPICE FUMIGATOR 04/11/2024 3:48 AM SPICE FUMIGATOR Roberto Medina MD LAB BLOOD ORDERABLES F inal Result Performing Organization Address [facility] de Phone Number [facility] [place] [address] * CT Abdomen Pelvis W Contrast (04/11/2024 2:21 AM SPICE FUMIGATOR) Anatomical Region Laterality Modality Body N/A Computed Tomogra phy 04/11/2024 2:42 AM SPICE FUMIGATOR Impressions 04/11/2024 1:21 PM SPICE FUMIGATOR 1. Peritoneal dialysis catheter in place with [...] Wallace Mederos M.D. Narrative 04/11/2024 1:21 PM SPICE FUMIGATOR EXAMINATION: Computed tomography of the abdomen and [...] Result * ECG 12-LEAD (04/11/2024 1:52 AM SPICE FUMIGATOR) Narrative [facility] - 04/11/2024 1:52 AM SPICE FUMIGATOR Olu Collins MD 04/11/2024 1:54 AM ECG [...] ECG ORDERABLES Final Result Performing Organization Address City/[facility] Co de Phone Number [facility] * (ABNORMAL) Troponin I high-sensitivity 2-hour (04/11/2024 1:48 AM SPICE FUMIGATOR) Trop I hs 214(C) <=35 ng/L Comment: Previous critical value noted within 48 hours ago. Interpretive Data For further [facility] resources including the diagnostic algorithm and an aid in interpretation, copy and paste this link: https://bjhlab.testcatalog.org/show/hsTrop-1 Current Interpretive Data last revised 2019. Trop I hs pct delta -4 % [facility] Trop I hs interp Insignificant [facility] Blood 04/11/2024 1:48 AM SPICE FUMIGATOR 04/11/2024 2:01 AM SPICE FUMIGATOR Roberto Medina MD LAB BLOOD ORDERABLES F inal Result [facility] [place] [address] * FL CRITICAL CARE ILL/INJURED PATIENT INIT 30-74 MIN (04/11/2024 1:29 AM SPICE FUMIGATOR) Narrative Olu Collins MD - 04/11/2024 1:29 AM SPICE FUMIGATOR Olu Collins MD 04/11/2024 5:14 AM Critical [...] Chest 1 Vw Portable (04/11/2024 1:01 AM SPICE FUMIGATOR) Anatomical Region Laterality Modality Body, Chest N/A Computed Radiogr aphy 04/11/2024 1:48 AM SPICE FUMIGATOR Impressions 04/11/2024 1:25 PM SPICE FUMIGATOR Comparison to 04/11/2024 No pneumothorax. Small lung [...] Wallace Mederos M.D. Narrative 04/11/2024 1:25 PM SPICE FUMIGATOR EXAMINATION: 1 view chest radiograph Procedure Note [...] Sepsis Lactate w/ Reflex (04/11/2024 12:17 AM SPICE FUMIGATOR) Sepsis Lactate 2.4(H) 0.7 - 2.0 mmol/L Blood 04/11/2024 12:1 7 AM SPICE FUMIGATOR 04/11/2024 12:22 AM SPICE FUMIGATOR us Prerak Bhaveshlala Medina MD LAB BLOOD ORDERABLES F inal Result [facility] [place] [address] * (ABNORMAL) Troponin I high-sensitivity series (baseline, 2hr, 4hr, 6hr) (04/10/2024 11:41 PM SPICE FUMIGATOR) Trop I hs 223(C) <=35 ng/L Comment: Reviewed Interpretive Data For further hscTnI resources including the diagnostic algorithm and an aid in interpretation, copy and paste this link: https://bjhlab.testcatalog.org/show/hsTrop-1 Current Interpretive Data last revised 2019. Blood 04/10/2024 11:4 1 PM SPICE FUMIGATOR 04/10/2024 11:54 PM SPICE FUMIGATOR us Prerak Bhavesh Adam MD LAB BLOOD ORDERABLES F inal Result Performing Organization Address City/[facility]/ZIP Co de Phone Number [facility] [place] [address] * Critical result callback Cardio chemistry (04/10/2024 11:41 PM SPICE FUMIGATOR) Date Notified [id number] Time Notified 108 KERRI SIMPSON Test name Trop I hs KERRI SIMPSON Called/Read Back Olu SIMPSON Credentials MD KERRI SIMPSON Called By SB [facility] SIMPSON Blood 04/10/2024 11:4 1 PM SPICE FUMIGATOR 04/10/2024 11:54 PM SPICE FUMIGATOR Premat Medina MD LAB BLOOD ORDERABLES F inal Result Performing Organization Address [facility] Co de Phone Number [facility] [place] [address] * (ABNORMAL) eGFR (04/10/2024 11:41 PM SPICE FUMIGATOR) eGFR 5(L) >=60 mL/min/1. 73 m2 Comment: [...] reviewed 2020. Blood 04/10/2024 11:4 1 PM SPICE FUMIGATOR 04/10/2024 11:55 PM SPICE FUMIGATOR Sumit Baptiste MD LAB BLOOD ORDERABLES Kenna haider Result [facility] [place] [address] * (ABNORMAL) Differential, auto (04/10/2024 11:41 PM SPICE FUMIGATOR) Neutrophil abs 9.3(H) 1.5 - 6.5 K/cumm Imm gran abs 1.1(H) 0.0 - 0.1 K/cumm [facility] Lymphocyte abs 1.6 0.8 - 3.3 K/cumm [facility] Monocyte abs 1.0(H) 0.2 - 0.8 K/cumm [facility] Eosinophil abs 0.1 0.0 - 0.5 K/cumm [facility] Basophil abs 0.1 0.0 - 0.1 K/cumm [facility] Neutrophil pct 71.0 % [facility] Comment: Confirmed by smear review Interpretive Data Percent cell count reference ranges are not reported, since discordance with absolute values may lead to misinterpretation of CBC data. Current Interpretive Data was last revised on 2017. Imm gran pct 8.2 % [facility] Comment: Interpretive Data Percent cell count reference ranges are not reported, since discordance with absolute values may lead to misinterpretation of CBC data. Current Interpretive Data was last revised on 2017. Lymphocyte pct 12.3 % [facility] Comment: Interpretive Data Percent cell count reference ranges are not reported, since discordance with absolute values may lead to misinterpretation of CBC data. Current Interpretive Data was last revised on 2017. Monocyte pct 7.3 % [facility] Comment: Interpretive Data Percent cell count reference ranges are not reported, since discordance with absolute values may lead to misinterpretation of CBC data. Current Interpretive Data was last revised on 2017. Eosinophil pct 0.8 % [facility] Comment: Interpretive Data Percent cell count reference ranges are not reported, since discordance with absolute values may lead to misinterpretation of CBC data. Current Interpretive Data was last revised on 2017. Basophil pct 0.4 % [facility] Comment: Interpretive Data Percent cell count reference ranges are not reported, since discordance with absolute values may lead to misinterpretation of CBC data. Current Interpretive Data was last revised on 2017. Blood 04/10/2024 11:4 1 PM SPICE FUMIGATOR 04/10/2024 11:54 PM SPICE FUMIGATOR Sumit Baptiste MD LAB BLOOD ORDERABLES Kenna haider Result [facility] [place] [address] * Respiratory pathogen panel Nasopharyngeal (04/10/2024 11:41 PM SPICE FUMIGATOR) Pathologist [facility] [place] Influenza A RNA Not Detected Not Detected Influenza B RNA Not Detected Not Detected [facility] RSV RNA Not Detected Not Detected [facility] COVID-19 RNA Not Detected Not Detected [facility] Coronavirus 229E RNA Not Detected Not Detected [facility] Coronavirus HKU1 RNA Not Detected Not Detected [facility] Coronavirus NL63 RNA Not Detected Not Detected [facility] Coronavirus OC43 RNA Not Detected Not Detected [facility] Adenovirus DNA Not Detected Not Detected [facility] Metapneumovirus RNA Not Detected Not Detected [facility] Rhinovirus/Enterov irus RNA Not Detected Not Detected [facility] Parainfluenza 1 RNA Not Detected Not Detected [facility] Parainfluenza 2 RNA Not Detected Not Detected [facility] Parainfluenza 3 RNA Not Detected Not Detected [facility] Parainfluenza 4 RNA Not Detected Not Detected [facility] B. pertussis DNA Not Detected Not Detected [facility] B. parapertussis DNA Not Detected Not Detected [facility] C. pneumoniae DNA Not Detected Not Detected [facility] M. pneumoniae DNA Not Detected Not Detected [facility] Nasopharyngeal 04/10/2024 11 :41 PM SPICE FUMIGATOR 04/11/2024 12:16 AM SPICE FUMIGATOR Narrative [facility] - 04/11/2024 1:23 AM SPICE FUMIGATOR Is the Patient experiencing symptoms consistent with COVID?->Unknown Surveillance testing for transplant patient?->No Interpretive Data The BullGuard FilmArray Respiratory Panel (RP2.1) assay is a [...] assay has FDA clearance for testing of METAL ANNEALER swabs. The performance of additional specimen types has been assessed by the performing laboratory. The performance characteristics of this assay have been determined by [facility] Molecular Infectious Disease Laboratory. Current interpretive data was last revised on 21. us Roberto Medina MD LAB MICROBIOLOGY - GEN ERAL ORDERABLES Final Result [facility] [place] [address] * (ABNORMAL) CBC with auto differential (04/10/2024 11:41 PM SPICE FUMIGATOR) WBC 13.1(H) 3.8 - 9.9 K/cumm Hgb 9.8(L) 13.0 - 17.5 g/dL [facility] Hct 30.3(L) 38.9 - 50.3 % [facility] Plt 272 150 - 400 K/cumm [facility] MPV 11.5 9.1 - 12.3 fL [facility] RBC 3.21(L) 4.30 - 5.80 M/cumm [facility] MCV 94.4 81.3 - 96.4 fL [facility] MCH 30.5 27.1 - 33.3 pg [facility] MCHC 32.3 32.3 - 35.7 g/dL [facility] RDW CV 15.8(H) 11.1 - 14.9 % [facility] RDW SD 54.0(H) 35.7 - 48.1 fL [facility] NRBC abs 0.00 0.00 - 0.01 K/cumm [facility] Blood 04/10/2024 11:4 1 PM SPICE FUMIGATOR 04/10/2024 11:54 PM SPICE FUMIGATOR us Olu Collins MD LAB BLOOD ORDERABLES Final Re sult [facility] [place] [address] * Blood culture Blood (04/10/2024 11:41 PM SPICE FUMIGATOR) Report Final Report: No growth Blood 04/10/2024 11:4 1 PM SPICE FUMIGATOR 04/11/2024 1:59 AM SPICE FUMIGATOR Narrative [facility] - 04/15/2024 7:01 AM SPICE FUMIGATOR Collection->Peripheral 1. Blood cultures are incubated for [...] performance characteristics have been verified by the [facility]. For questions about this culture, contact the Microbiology Laboratory at [phone]. Interpretive data was last revised on 23. us Prerak Bhavesh Medina MD LAB MICROBIOLOGY - GEN ERAL ORDERABLES Final Result [facility] [place] [address] * Blood culture Blood (04/10/2024 11:41 PM SPICE FUMIGATOR) Report Final Report: No growth Blood 04/10/2024 11:4 1 PM SPICE FUMIGATOR 04/11/2024 1:59 AM SPICE FUMIGATOR Narrative [facility] - 04/15/2024 7:01 AM SPICE FUMIGATOR Collection->Peripheral 1. Blood cultures are incubated for [...] performance characteristics have been verified by the [facility]. For questions about this culture, contact the Microbiology Laboratory at [phone]. Interpretive data was last revised on 23. Roberto Medina MD LAB MICROBIOLOGY - GEN ERAL ORDERABLES Final Result Performing Organization Address [facility] Co de Phone Number [facility] [place] [address] * TSH (04/10/2024 11:41 PM SPICE FUMIGATOR) Thyroid Stimulating Hormone 3.20 0.30 - 4.20 mcIUnit/mL Blood 04/10/2024 11:4 1 PM SPICE FUMIGATOR 04/10/2024 11:55 PM SPICE FUMIGATOR Olu Collins MD LAB BLOOD ORDERABLES Final Re sult Performing Organization Address [facility] de Phone Number [facility] [place] [address] * Cholesterol, LDL, direct (04/10/2024 11:41 PM SPICE FUMIGATOR) LDL Cholesterol, Direct 41 <=129 mg/dL Comment: [...] on 2017. Blood 04/10/2024 11:4 1 PM SPICE FUMIGATOR 04/10/2024 11:55 PM SPICE FUMIGATOR Narrative [facility] - 04/11/2024 6:09 PM SPICE FUMIGATOR Cholesterol, LDL, direct reflexed based on Elevated Triglyceride (>400) Nicole Boo MD LAB BLOOD ORDERABLES Final Result Performing Organization Address City/[facility]/ZIP Co de Phone Number [facility] [place] [address] * (ABNORMAL) Hemoglobin A1c (04/10/2024 11:41 PM SPICE FUMIGATOR) [facility] Hgb A1C 7.0(H) 4.0 - 5.6 % Estimated Average Glucose 154 mg/dL [facility] Comment: The ADA recommends reporting an estimated Average Glucose (eAG) with all Hemoglobin A1c results using the equation derived from a study of 507 normal and diabetic adults. Minority populations were underrepresented and children were not included. (Diabetes Care 2020; 43(S1): S66-S76). The eAG is not equivalent to a fasting glucose. Blood 04/10/2024 11:4 1 PM SPICE FUMIGATOR 04/10/2024 11:57 PM SPICE FUMIGATOR us Saul Engle MD LAB BLOOD ORDERABLES Final Resul t [facility] [place] [address] * (ABNORMAL) Lipid panel (04/10/2024 11:41 PM SPICE FUMIGATOR) [facility] Cholesterol 145 30 - 199 mg/dL [...] on 2017. Triglycerides 453(H) <=149 mg/dL [facility] Comment: Interpretive Data Ages < [...] on 2017. HDL 22(L) >=40 mg/dL [facility] Comment: Interpretive Data Ages < [...] 2017. LDL, calculated See Comment <=129 [facility] Comment: Unable to calculate LDL [...] revised on 2023. Non-HDL Cholesterol 123 mg/dL [facility] Comment: Interpretive Data Ages < or [...] last revised on 2017. Chol/HDL ratio 7 [facility] Blood 04/10/2024 11:4 1 PM SPICE FUMIGATOR 04/10/2024 11:55 PM SPICE FUMIGATOR Nicole Boo MD LAB BLOOD ORDERABLES Final Result [facility] [place] [address] * (ABNORMAL) Comprehensive metabolic panel (04/10/2024 11:41 PM SPICE FUMIGATOR) Sodium 141 135 - 145 mmol/L Potassium, pl 3.4 3.3 - 4.9 mmol/L [facility] Chloride 98 97 - 110 mmol/L [facility] CO2 27 22 - 32 mmol/L [facility] Anion gap 16(H) 2 - 15 mmol/L [facility] BUN 45(H) 6 - 25 mg/dL [facility] Creatinine 10.90(H) 0.80 - 1.30 mg/dL [facility] Glucose 240(H) 70 - 199 mg/dL [facility] Comment: Interpretive Data Fasting glucose >/= [...] 2022. Calcium 9.2 8.5 - 10.3 mg/dL [facility] Bilirubin, total 0.2 0.1 - 1.2 mg/dL [facility] Protein, pl 6.5 6.5 - 8.5 g/dL [facility] Albumin 3.1(L) 3.5 - 5.0 g/dL [facility] Alk phos 64 40 - 130 Units/L [facility] ALT 26 7 - 55 Units/L [facility] AST 30 10 - 50 Units/L [facility] Blood 04/10/2024 11:4 1 PM SPICE FUMIGATOR 04/10/2024 11:55 PM SPICE FUMIGATOR Olu Collins MD LAB BLOOD ORDERABLES Final Re sult [facility] [place] [address] * (ABNORMAL) ECG 12-LEAD (04/10/2024 11:15 PM SPICE FUMIGATOR) Narrative [facility] - 04/10/2024 11:15 PM SPICE FUMIGATOR Mario Alberto Cornelius MD 04/10/2024 11:17 PM [...] the ED Mario Alberto Cornelius MD 04/10/24 6176 us Olu Collins MD ECG ORDERABLES Final Result [facility] * OCT, Retina - OU - Both Eyes (03/09/2024 2:00 PM SPICE FUMIGATOR) Central Macular Thickness OS 227 micrometers CONTINUUM Central Macular Thickness OD 479 micrometers CONTINUUM Anatomical Region Laterality Modality Head Optical Coherenc e Tomography Narrative 03/16/2024 12:53 PM SPICE FUMIGATOR Right Eye Quality was good. Scan locations included subfoveal. Progression has improved. Macular thickness was 479 micrometers. Left Eye Quality was good. Scan locations included subfoveal. Progression has been stable. Macular thickness was 227 micrometers. Notes OD - ERM, CME continues to improve OS - flat Sera Villanueva MD OPHTH TOMOGRAPHY Fi nal Result from Last 3 Months Insurance [facility] MEDICARE [facility] MEDICARE [employer] MEDICARE Advance Directives For more information, please contact: [phone] * Full Code (Latest Code Status on [...] 3:52 PM 06/08/2021 9:56 PM Care Teams Flake Cutter Operator Relationship Specialty Start Date End Date Jeff Strickland MD [address] [facility] [address] [place] [address] PCP - General Family Medicine 04/02/18 Chan Nicholas MD [address] [facility] [address] [place] [address] Consulting Physician Gastroenterology 11/24/18 Alan Mccall MD [address] [place] [address] Referring Physician Nephrology 11/24/18 Pepito Haro MD PhD [address] [id number] Consulting Physician Neurosurgery 12/03/22 Solange Guido MD [address] [facility] [address] [id number] Referring Physician Cardiovascular Disease 07/23/23
--- OUTSIDE RECORDS SUMMARY | 2024-05-16 15:56 | XMS_ITS | Encounter Summary ---
Author Organization [facility] Address [facility]3 [facility] [place] [address] Care Team Providers Care Guest Relations Representative Name Role Phone Deandre Bojorquez MD Unavailable [phone] Jeff Strickland MD Primary Care Provider [phone] Encounter Details Date Type Department Care Team (Late st Contact Info) Description 03/30/2024 Lab Requisition [facility] [address] [place] [phone] Alan Davenport MD [facility] [place] [address] Social History Tobacco Use Types Packs/Day Years [...] 10:00 AM CDT Appointment [facility] NUCLEAR MEDICINE [address] [place] [phone] Alan Davenport MD [address] DIV OF [facility] [place] [address] 06/16/2024 11:00 AM CDT Appointment [facility] NUCLEAR MEDICINE [address] [place] [phone] Alan Davenport MD [address] DIV OF [facility] [place] [address] 06/16/2024 12:20 PM CDT Appointment [facility] CAT SCAN [facility] [place] [address] Alan Davenport MD [address] DIV OF [facility] [place] [address] 06/16/2024 1:00 PM CDT Appointment [facility] ECHO [address] [place] [address] Alan Davenport MD [address] DIV OF [facility] [place] [address] 06/16/2024 2:00 PM CDT Appointment [facility] US [address] [place] [address] Alan Davenport MD [address] DIV OF [facility] [place] [address] 06/16/2024 2:45 PM CDT Appointment [facility] DIAGNOSTIC RAD OP [address] [place] [address] Alan Davenport MD [address] [facility] DIV OF [facility] [place] [address] 06/16/2024 2:50 PM CDT Appointment [facility] LAB OP DRAW STATION [address] [place] [address] Alan Davenport MD [address] [facility] DIV OF [facility] [place] [address] 06/23/2024 1:00 PM CDT Clinical Support [facility] TRANSPLANT [address] [place] [address] 08/04/2024 11:30 AM CDT Appointment [facility] MRI [address] [place] [address] Thomas Mendoza MD [address] [facility] 2L [place] [address] 08/04/2024 1:30 PM CDT Office Visit [facility] - Urology [address] [place] [phone] Thomas Mendoza MD [address] [place] [address] 2L [place] [address] documented as of this encounter Procedures Procedure Name Priority Date/Time Associated Diagnosis Comments HOLD HLA SPECIMEN Routine 03/25/2024 2:5 1 PM IT HELP DESK ANALYST documented in this encounter Results * HOLD HLA SPECIMEN (03/25/2024 2:51 PM IT HELP DESK ANALYST) Hold HLA Specimen 03/30/2024 4:01 PM IT HELP DESK ANALYST [facility] Comment:The Hold HLA specime n has been received into the lab and will be held for 5 years at 4 degrees. Blood BLOOD SPECIMEN / Unknown 03/25/2024 2:51 PM IT HELP DESK ANALYST 03/30/2024 2:51 PM IT HELP DESK ANALYST Alan Davenport MD LAB - BLOOD BANK ORD ERABLES [facility] [address] [place] [address], [facility] documented in this encounter Visit Diagnoses Not on filedocumented in this encounter Care Teams Guest Relations Representative Relationship Specialty Start Date End Date Jeff Strickland MD [address] [place] [address] PCP - General 03/05/18 [place] [address] [place] [address] Orthopedic Surgery 03/28/17 documented as of this encounter
--- OUTSIDE RECORDS SUMMARY | 2024-05-16 15:56 | XMS_ITS | Clinical Summary ---
Author Organization [facility] Address [facility]6 [place] [address] Care Team Providers Care Mobile Home Laborer Name Role Phone Jeff Strickland MD Primary Care Provider [phone] Allergies Active Allergy Reactions Criticality Noted Date [...] by mouth nightly at bedtime. 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
--- OUTSIDE RECORDS SUMMARY | 2024-05-16 15:56 | XMS_ITS ---
Author Organization [facility] Address [address] [facility] [place] [address] Care Team Providers Care Color Maker Dyer Name Role Phone Deandre Bojorquez MD Unavailable [phone] Jeff Strickland MD Primary Care Provider [phone] Transplant Episode Kidney Candidate [facility] [place] - [facility] Center waitlisted on 05/06/2022 Marked as Inactive on 12/19/2022 Reason: Temporarily too Sick Kidney CoordinatorSavanna Edwards RN Phone: N/A Fax: N/A Email: N/A Scores Score Value Updated Exceptions/Reas ons CPRA Not available EPTS (Calc) 95 05/16/2024 [employer] Organ Diagnosis Organ Primary Contributory Kidney Diabetes Mellitus - Type II Hype rtensive Nephrosclerosis Care Team Name Role Phone Fax Email Savanna Edwards RN Kidney Coordinator N/A N/A N/A Alan Mccall MD Referring Physician N/A N/A N/A Anjali Mott LMSW Forest Law And Policy Professor N/A N/A N/A Millie Lindquist Shellfish Grower N/A N/A N/A Events Pre-Transplant Referred: 12/05/2021 Evaluation began: 12/13/2021 Committee: 05/02/2022 UNOS qualified: 01/17/2020 Center waitlisted: 05/06/2022 Dialysis History Dialysis History Start End Type Comments Center 01/17/2020 Peritoneal [facility] Information Center Phone Fax Address [facility] [phone] [address] [place] [phone]
--- OUTSIDE RECORDS SUMMARY | 2024-05-16 15:56 | XMS_ITS | Encounter Summary ---
Author Organization [facility] Address [facility] [place] [address] Care Team Providers Care Master Naval Parachutist Name Role Phone Deandre Bojorquez MD Unavailable [phone] Jeff Strickland MD Primary Care Provider Encounter Details Date Type Department Care Team (Late st Contact Info) Description 11/21/2023 Lab Requisition [facility] [address] [place] [phone] Alan Davenport MD [facility]1 [facility] OF [place] [address] Social History Tobacco Use Types Packs/Day Years [...] 10:00 AM CDT Appointment [facility] NUCLEAR MEDICINE [address] [place] [phone] Alan Davenport MD [address] DIV OF [facility] [place] [address] 06/16/2024 11:00 AM CDT Appointment [facility] NUCLEAR MEDICINE [address] [place] [phone] Alan Davenport MD [address] DIV OF [facility] [place] [address] 06/16/2024 12:20 PM CDT Appointment [facility] CAT SCAN [facility] [place] [address] Alan Davenport MD [address] DIV OF [facility] [place] [address] 06/16/2024 1:00 PM CDT Appointment [facility] ECHO [address] [place] [address] Alan Davenport MD [address] DIV OF [facility] [place] [address] 06/16/2024 2:00 PM CDT Appointment [facility] US [address] [place] [address] Alan Davenport MD [address] DIV OF [facility] [place] [address] 06/16/2024 2:45 PM CDT Appointment [facility] DIAGNOSTIC RAD OP [address] [place] [address] Alan Davenport MD [address] [facility] DIV [facility] [place] [address] 06/16/2024 2:50 PM CDT Appointment [facility] LAB OP DRAW STATION [address] [place] [address] Alan Davenport MD [address] [facility] DIV OF [facility] [place] [address] 06/23/2024 1:00 PM CDT Clinical Support [facility] TRANSPLANT [address] [place] [address] 08/04/2024 11:30 AM CDT Appointment [facility] MRI [address] [place] [address] Thomas Mendoza MD 1225 [facility] 2L [place] [address] 08/04/2024 1:30 PM CDT Office Visit [facility] - Urology [address] [place] [phone] Thomas Mendoza MD [facility]5 [facility] 2L [place] [phone] documented as of this encounter Procedures Procedure Name Priority Date/Time Associated Diagnosis Comments HOLD HLA SPECIMEN Routine 11/18/2023 12: 16 PM CDT documented in this encounter Results * HOLD HLA SPECIMEN (11/18/2023 12:16 PM CDT) Hold HLA Specimen 11/21/2023 1:31 PM CDT [facility] Comment:The Hold HLA specime n has been received into the lab and will be held for 5 years at 4 degrees. Blood BLOOD SPECIMEN / Unknown 11/18/2023 12:16 PM CDT 11/21/2023 12:17 PM CDT Alan Davenport MD LAB - BLOOD BANK ORD ERABLES [facility] [address] documented in this encounter Visit Diagnoses Not on filedocumented in this encounter Care Teams Master Naval Parachutist Relationship Specialty Start Date End Date Jeff Strickland MD [address] [place] [address] PCP - General 03/05/18 [place] [address] [place] [address] Orthopedic Surgery 03/28/17 documented as of this encounter
--- OUTSIDE RECORDS SUMMARY | 2024-05-16 15:56 | XMS_ITS | Encounter Summary ---
Author Organization [facility] Address [facility]3 [facility] [place] [address] Care Team Providers Care Lpn Per Diem Name Role Phone Deandre Bojorquez MD Unavailable [phone] Jeff Strickland MD Primary Care Provider [phone] Encounter Details Date Type Department Care Team (Late st Contact Info) Description 05/29/2023 Lab Requisition [facility] [address] [place] [phone] Alan Davenport MD [facility] [place] [address] Social History Tobacco Use Types Packs/Day Years [...] Info) Description 06/16/2024 10:00 AM CDT Appointment [facility] NUCLEAR MEDICINE [address] [place] [phone] Alan Davenport MD [address] [facility] [place] [address] 06/16/2024 11:00 AM CDT Appointment [facility] NUCLEAR MEDICINE [address] [place] [phone] Alan Davenport MD [address] [facility] [address] 06/16/2024 12:20 PM CDT Appointment [facility] CAT SCAN [facility]1 [place] [address] Alan Davenport MD [address] [facility] [place] [address] 06/16/2024 1:00 PM CDT Appointment [facility] ECHO [address] [place] [address] Alan Davenport MD [address] [facility] [place] [address] 06/16/2024 2:00 PM CDT Appointment [facility] US [address] [place] [address] Alan Davenport MD [address] [facility] [place] [address] 06/16/2024 2:45 PM CDT Appointment [facility] DIAGNOSTIC RAD OP [address] [place] [address] Alan Davenport MD [address] [facility] [place] [address] 06/16/2024 2:50 PM CDT Appointment [facility] LAB OP DRAW STATION [address] [place] [address] Alan Davenport MD [address] [facility] DIV OF [facility] [place] [address] 06/23/2024 1:00 PM CDT Clinical Support [facility] TRANSPLANT [address] [place] [address] 08/04/2024 11:30 AM CDT Appointment [facility] MRI [address] [place] [address] Thomas Mendoza MD 1225 [facility] 2L [place] [address] 08/04/2024 1:30 PM CDT Office Visit [facility] - Urology [address] [place] [phone] Thomas Mendoza MD [facility]5 [facility] 2L [place] [phone] documented as of this encounter Procedures Procedure Name Priority Date/Time Associated Diagnosis Comments HOLD HLA SPECIMEN Routine 05/21/2023 9:2 4 AM CDT documented in this encounter Results * HOLD HLA SPECIMEN (05/21/2023 9:24 AM CDT) Hold HLA Specimen 05/29/2023 10:30 AM CDT [facility] Comment:The Hold HLA specime n has been received into the lab and will be held for 5 years at 4 degrees. Blood BLOOD SPECIMEN / Unknown 05/21/2023 9:24 AM CDT 05/29/2023 9:24 AM CDT Alan Davenport MD LAB - BLOOD BANK ORD ERABLES [facility] [address] [place] [address] documented in this encounter Visit Diagnoses Not on filedocumented in this encounter Care Teams Lpn Per Diem Relationship Specialty Start Date End Date Jeff Strickland MD [address] [place] [address] PCP - General 03/05/18 [place] [address] [place] [address] Orthopedic Surgery 03/28/17 documented as of this encounter
--- OUTSIDE RECORDS SUMMARY | 2024-05-16 15:56 | XMS_ITS | Clinical Summary ---
Author Organization [facility] Address [address] [address] Phone Care Team Providers Care Beet Topper Name Role Phone Jeff Strickland MD Primary Care Provider [phone] Allergies No known active allergies Medications Medication [...] 3 11/29/2019 Active Continuous Blood Gluc Business Process Lead (FreeStyle Em [place]) device 1 each daily 12/01/2019 Active Continuous Blood Gluc Sensor (FreeStyle Em Sensor System) misc 1 each once every 2 weeks 12/01/2019 Active Lancets (OneTouch Delica Plus Naepem25E) misc OneTouch Delica Plus Lancet 33 gauge [...] 11/10/2019 Overview (12/17/2019): Kendall Carl 1955 Referring Director [employer]: Alan Mccall Dialysis Info: NOD GFR 13 Type: Time: (Not currently on dialysis) days Blood Type: O NEG Body mass index is 37.36 kg/m . ALERTS Soil Tester: needs to establish Past Medical History: Diagnosis Date Arthropathy RA. Dr Strickland manages. CHF (congestive heart failure) 2 yrs ago Tool Repair Technician is Dr. Becerra in [place]. CKD (chronic kidney disease), stage V Community acquired pneumonia 2018 [facility] hospitalized. Diabetes mellitus 20 years. Lantus pen. Esophageal reflux takes med Hypercholesteremia 5-10 yrs meds Hypertension takes meds Hypothyroidism meds 20 years Kidney stones 5-6 years ago had 2 in the same year. Malignancy right kidney 2012 Obstructive sleep apnea 3 years. [facility]. Angela remember doctors name Renal cell [...] the impression of this social media marketing specialist that Kendall Carl has several positive factors for Kidney transplant candidacy from a psychosocial perspective. Patient appears to have appropriate knowledge of illness. Patient has sufficient insurance coverage and stable financial situation for post transplant needs. No concerns regarding substance abuse, legal issues, or mental health needs. Patient has adequate support system and appropriate discharge plan. Plan: pest control worker helper to provide supportive services as needed. Patient appears to be a reasonable candidate for transplant from a psychosocial perspective. -Post transplant arrangement forms are needed prior to being listed. -Updated toxicology results needed, per protocol Psychiatric Consult Recommended: No Transplant Field Hauler: Joy Tam LCSW RD: 11/09/2019 BMI= 36.2, [...] use my fitness pal or my food family coach) - Consume no more than 2000 [...] nephrectomy. 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 [id number] Immunizations Name Administration Dates Next Due Influenza [...] (#1) 2023 9, 04/10/2016, 04/09/2016 Care Teams Beet Topper Relationship Specialty Start Date End Date Jeff Strickland MD [address] [facility] [address] [place] [address] PCP - General Internal Medicine 07/15/18
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
--- OUTSIDE RECORDS SUMMARY | 2024-05-16 15:56 | XMS_ITS | Clinical Summary ---
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 Active Vit C-Vit D-Yblgtt-GvAi-L utein (PRESERVISION) 226 mg-200 unit -5 mg-0.8 [...] Department Care Team Description 03/03/2024 2:05 PM ANIMAL RESEARCHER Ancillary Procedure [facility] [address] [place] [address] Sergio Rivera MD Pain in [...] Comments Blood Pressure 167/77 02/04/2019 9:16 AM ANIMAL RESEARCHER Pulse 64 02/04/2019 9:16 AM ANIMAL RESEARCHER Temperature 36.5 C (97.7 F) 02/04/2019 9:16 AM ANIMAL RESEARCHER Respiratory Rate 16 02/04/2019 9:16 AM ANIMAL RESEARCHER Oxygen Saturation 97% 02/04/2019 9:16 AM ANIMAL RESEARCHER Inhaled Oxygen Concentration - - Weight 113.4 kg (250 lb) 02/04/2019 9:16 AM ANIMAL RESEARCHER Height 175.3 cm (5' 9 ) 02/04/2019 9:16 AM ANIMAL RESEARCHER Body Mass Index 36.92 02/04/2019 9:16 AM ANIMAL RESEARCHER Plan of Treatment Health Maintenance Due Date [...] 2+ VW BILAT Routine 03/03/2024 2:26 PM ANIMAL RESEARCHER Pain in shoulder region, left Pain in shoulder region, right from Last 3 Months Results * XR SHOULDER 2+ VW BILAT (03/03/2024 2:26 PM ANIMAL RESEARCHER) Anatomical Region Laterality Modality Upper Extremity Computed Radiogr aphy 03/03/2024 2:27 PM ANIMAL RESEARCHER Impressions 03/03/2024 2:34 PM ANIMAL RESEARCHER IMPRESSION: 1. 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 Narrative 03/03/2024 2:34 PM ANIMAL RESEARCHER EXAM: XR SHOULDER 2+ VW BILAT DATE: [...] BCBS BLUE ACCESS/TRUE BLUE PPO Care Teams Assistant Golf Professional Relationship Specialty Start Date End Date Jeff Strickland MD [address] [facility] [address] [place] [address] PCP - General Family Practice 01/01/19
--- OUTSIDE RECORDS SUMMARY | 2024-05-16 15:56 | XMS_ITS | Encounter Summary ---
Author Organization [facility] Address [facility] [place] [address] Care Team Providers Care Overhead Garage Door Hanger Name Role Phone Deandre Bojorquez MD Unavailable [phone] Jeff Strickland MD Primary Care Provider [phone] Encounter Details Date Type Department Care Team (Late st Contact Info) Description 04/29/2024 Lab Requisition [facility] MAIN LAB [address] [place] [phone] Alan Davenport MD [facility] OF [place] [address] Social History Tobacco Use Types Packs/Day Years [...] Description 06/16/2024 10:00 AM CDT Appointment [facility] NUCLEAR MEDICINE [address] [place] [phone] Alan Davenport MD [address] DIV OF [facility] [place] [address] 06/16/2024 11:00 AM CDT Appointment [facility] NUCLEAR MEDICINE [address] [place] [phone] Alan Davenport MD [address] DIV OF [facility] [place] [address] 06/16/2024 12:20 PM CDT Appointment [facility] CAT SCAN [facility] [place] [address] Alan Davenport MD [address] DIV OF [facility] [place] [address] 06/16/2024 1:00 PM CDT Appointment [facility] ECHO [address] [place] [address] Alan Davenport MD [address] DIV OF [facility] [place] [address] 06/16/2024 2:00 PM CDT Appointment [facility] US [address] [place] [address] Alan Davenport MD [address] DIV OF [facility] [place] [address] 06/16/2024 2:45 PM CDT Appointment [facility] DIAGNOSTIC RAD OP [address] [place] [address] Alan Davenport MD [address] [facility] [place] [address] 06/16/2024 2:50 PM CDT Appointment [facility] LAB OP DRAW STATION [address] [place] [address] Alan Davenport MD [address] [facility] DIV OF [facility] [place] [address] 06/23/2024 1:00 PM CDT Clinical Support [facility] TRANSPLANT [address] [place] [address] 08/04/2024 11:30 AM CDT Appointment [facility] MRI [address] [place] [address] Thomas Mendoza MD [address] [facility] 2L [place] [address] 08/04/2024 1:30 PM CDT Office Visit [facility] Physician Group - Urology [address] [place] [phone] Thomas Mendoza MD [facility] 2L [place] [address] documented as of this encounter Procedures Procedure Name Priority Date/Time Associated Diagnosis Comments HOLD HLA SPECIMEN Routine 04/27/2024 1:4 8 PM CDT documented in this encounter Results * HOLD HLA SPECIMEN (04/27/2024 1:48 PM CDT) Hold HLA Specimen 04/29/2024 3:02 PM CDT [facility]) Comment:The Hold HLA specime n has been received into the lab and will be held for 5 years at 4 degrees. Blood BLOOD SPECIMEN / Unknown 04/27/2024 1:48 PM CDT 04/29/2024 1:49 PM CDT Alan Davenport MD LAB - BLOOD BANK ORD ERABLES [facility] ([facility]) [address] [place] [address] documented in this encounter Visit Diagnoses Not on filedocumented in this encounter Care Teams Overhead Garage Door Hanger Relationship Specialty Start Date End Date Jeff Strickland MD [address] [place] [address] PCP - General 03/05/18 [place] [address] [place] [address] Orthopedic Surgery 03/28/17 documented as of this encounter
--- OUTSIDE RECORDS SUMMARY | 2024-05-16 15:56 | XMS_ITS | Encounter Summary ---
Author Organization [facility] Address [address] [facility] [address] [place] [address] Care Team Providers Care Distribution Field Technician Name Role Phone Deandre Bojorquez MD Unavailable [phone] Jeff Strickland MD Primary Care Provider [phone] Encounter Details Date Type Department Care Team (Late st Contact Info) Description 02/07/2023 Lab Requisition [facility] MAIN LAB [address] [place] [phone] Alan Davenport MD [facility] [place] [address] Social History Tobacco Use Types Packs/Day Years [...] Description 06/16/2024 10:00 AM CDT Appointment [facility] NUCLEAR MEDICINE [address] [place] [phone] Alan Davenport MD [address] OF [facility] [place] [address] 06/16/2024 11:00 AM CDT Appointment [facility] NUCLEAR MEDICINE [address] [place] [phone] Alan Davenport MD [address] [facility] [place] [address] 06/16/2024 12:20 PM CDT Appointment [facility] CAT SCAN [facility] [place] [address] Alan Davenport MD [address] [facility] [place] [address] 06/16/2024 1:00 PM CDT Appointment [facility] ECHO [address] [place] [address] Alan Davenport MD [address] [facility] [place] [address] 06/16/2024 2:00 PM CDT Appointment [facility] US [address] [place] [address] Alan Davenport MD [address] [facility] [place] [address] 06/16/2024 2:45 PM CDT Appointment [facility] DIAGNOSTIC RAD OP [address] [place] [address] Alan Davenport MD [address] [facility] [place] [address] 06/16/2024 2:50 PM CDT Appointment [facility] LAB OP DRAW STATION [address] [place] [address] Alan Davenport MD [address] [facility] DIV [facility] [place] [address] 06/23/2024 1:00 PM CDT Clinical Support [facility] TRANSPLANT [address] [place] [address] 08/04/2024 11:30 AM CDT Appointment [facility] MRI [address] [place] [address] Thomas Mendoza MD [address] [facility] 2L [place] [address] 08/04/2024 1:30 PM CDT Office Visit [facility] - Urology [address] [place] [phone] Thomas Mendoza MD [address] [place] [address] [address] [place] [address] documented as of this encounter Procedures Procedure Name Priority Date/Time Associated Diagnosis Comments HOLD HLA SPECIMEN Routine 2023 7:5 8 AM WOOD GETTER documented in this encounter Results * HOLD HLA SPECIMEN (2023 7:58 AM WOOD GETTER) Hold HLA Specimen 02/07/2023 9:01 AM WOOD GETTER [facility] Comment:The Hold HLA specime n has been received into the lab and will be held for 5 years at 4 degrees. Blood BLOOD SPECIMEN / Unknown 2023 7:58 AM WOOD GETTER 02/07/2023 7:59 AM WOOD GETTER Alan Davenport MD LAB - BLOOD BANK ORD ERABLES [facility] [address] [place] [address], [facility] documented in this encounter Visit Diagnoses Not on filedocumented in this encounter Care Teams Distribution Field Technician Relationship Specialty Start Date End Date Jeff Strickland MD [address] [place] [address] PCP - General 03/05/18 [place] [address] [place] [address] Orthopedic Surgery 03/28/17 documented as of this encounter
--- OUTSIDE RECORDS SUMMARY | 2024-05-16 15:56 | XMS_ITS | Encounter Summary ---
Author Organization [facility] Address [address] [place] [address] Phone Care Team Providers Care Art Objects Supervisor Name Role Phone Jeff Strickland MD Primary Care Provider Chan Nicholas MD Unavailable [phone] Alan Mccall MD Unavailable [phone] Lorna Lantigua MD Unavailable [phone] Juliette Savage RN Unavailable Pepito Haro MD PhD Unavailable Solange Guido MD Unavailable [phone] Letha Gil RN Unavailable [phone] Encounter Details Date Type Department Care Team (Late st Contact Info) Description 05/02/[address] [facility] Ophthalmology [address] [place] [address] 1st [place] [phone] Corina Ventura MD PhD [address] [facility] [address] [place] [address] Social History Tobacco Use Types [...] on file Legal Sex Male 2:23 AM SEARCH ENGINE OPTIMIZATION STRATEGIST Gender Identity Not on file Sexual Orientation [...] COVID: Suspected 03/24/2023 03/24/2023 03/24/2023 5:45 PM SEARCH ENGINE OPTIMIZATION STRATEGIST COVID19 03/24/2023 03/24/2023 04/08/2023 3:06 AM SEARCH ENGINE OPTIMIZATION STRATEGIST COVID: Recovered Comment:Added based on recent COVID infection. 04/08/2023 04/10/2023 07/07/2023 3:06 AM C DT COVID: Suspected 04/10/2024 04/10/2024 04/11/2024 1:24 AM SEARCH ENGINE OPTIMIZATION STRATEGIST C. difficile suspected 04/11/2024 04/11/202404/11 1:21 PM SEARCH ENGINE OPTIMIZATION STRATEGIST documented as of this encounter Eye Exam [...] arcade Normal Periphery Normal Normal Care Teams Art Objects Supervisor Relationship Specialty Start Date End Date Jeff Strickland MD [address] [address] PCP - General Family Medicine 04/02/18 Chan Nicholas MD [facility] [address] [address] Consulting Physician Gastroenterology 11/24/18 Alan Mccall MD [facility] [address] [address] Referring Physician Nephrology 11/24/18 Lorna Lantigua MD [facility] [address] [address] Consulting Physician Cardiology 11/24/18 07/22/23 Juliette Savage, RN [address] [place] [address] Nurse Navigator 06/04/21 03/14/22 Pepito Haro MD PhD [address] [place] [address] Consulting Physician Neurosurgery 12/03/22 Solange Guido MD [address] [facility] [address] [place] [address] Referring Physician Cardiovascular Disease 07/23/23 Letha Gil, RN [address] [facility] [address] [place] [address] [facility] Outpatient Head Of Partner Development 04/14/24 04/18/24 documented as of this encounter
--- OUTSIDE RECORDS SUMMARY | 2024-05-16 15:56 | XMS_ITS | Continuity of Care Document ---
Author Organization [facility] Address [address] [place] [address] Phone Care Team Providers Care Range Master Name Role Phone Kee Rodriguez Unavailable Unavailable Procedures Procedure Date Office/outpatient Visit, Est Eye Exam Established Pt Advance Directives Directive Yes / No Effective Date File Name No Information Encounters Encounter Description Practice Location Reason(s) For Visit Diagnoses Date Provider Providers Copied on Encounter Office/outpat ient Visit, Est [facility], [address] [place] [address] [address], [place], [place], [id number], tel:[phone] [facility] No Information Mar-0 2-201 0 Krishnasamy Kee. [address] [facility] [place] [address], [place], [place], [facility], [place]. tel:[phone] [facility], [address] [place] [address] [address], [place], [place], [id number], tel:[phone] [facility] No Information Nhan-3 0-200 7 David OD Freddy. [address], [place], [place], [facility], [place]. tel:[phone] Family History Family Member Type Diagnosis Age [...]
--- OUTSIDE RECORDS SUMMARY | 2024-05-16 15:56 | XMS_ITS ---
Author Organization [facility] Address [address] [place] [id number] Care Team Providers Care Field Operator Name Role Phone Jeff Strickland MD Primary Care Provider Chan Nicholas MD Unavailable Alan Mccall MD Unavailable Pepito Haro MD PhD Unavailable [phone] Solange Guido MD Unavailable [phone] Dialysis Access Sites Type Status Location Placement Date Removal Da te Peritoneal Dialysis Catheter Mid lower abdomen Active Abdomen - Lower, Medial (Navel) Hemodialysis Cath Double Inactive Right Breast - Upper 05/01/2021 Hemodialysis Cath Double Inactive Right Breast - Upper 0 05/02/2021 11/22/2021 Procedures Procedure Name Priority Date/Time Associated Diagnosis Comments POCT GLUCOSE DEVICE Routine 04/13/2024 1 1:30 AM EMPLOYEE RELATIONS ADMINISTRATOR POCT GLUCOSE DEVICE Routine 04/13/2024 8 :00 AM EMPLOYEE RELATIONS ADMINISTRATOR EGFR Routine 04/13/2024 5:06 AM EMPLOYEE RELATIONS ADMINISTRATOR CBC WITHOUT DIFFERENTIAL Routine 04/13/2024 5:06 AM EMPLOYEE RELATIONS ADMINISTRATOR COMPREHENSIVE METABOLIC PANEL Routine 04/13/2024 5:06 AM EMPLOYEE RELATIONS ADMINISTRATOR POCT GLUCOSE DEVICE Routine 04/13/2024 1 :57 AM EMPLOYEE RELATIONS ADMINISTRATOR POCT GLUCOSE DEVICE Routine 04/12/2024 8 :29 PM EMPLOYEE RELATIONS ADMINISTRATOR POCT GLUCOSE DEVICE Routine 04/12/2024 5 :29 PM EMPLOYEE RELATIONS ADMINISTRATOR POCT GLUCOSE DEVICE Routine 04/12/2024 1 1:32 AM EMPLOYEE RELATIONS ADMINISTRATOR POCT GLUCOSE DEVICE Routine 04/12/2024 7 :54 AM EMPLOYEE RELATIONS ADMINISTRATOR EGFR Routine 04/12/2024 6:00 AM EMPLOYEE RELATIONS ADMINISTRATOR CBC WITHOUT DIFFERENTIAL Routine 04/12/2024 6:00 AM EMPLOYEE RELATIONS ADMINISTRATOR COMPREHENSIVE METABOLIC PANEL Routine 04/12/2024 6:00 AM EMPLOYEE RELATIONS ADMINISTRATOR POCT GLUCOSE DEVICE Routine 04/12/2024 4 :35 AM EMPLOYEE RELATIONS ADMINISTRATOR POCT GLUCOSE DEVICE Routine 04/12/2024 1 2:34 AM EMPLOYEE RELATIONS ADMINISTRATOR POCT GLUCOSE DEVICE Routine 04/11/2024 9 :13 PM EMPLOYEE RELATIONS ADMINISTRATOR POCT GLUCOSE DEVICE Routine 04/11/2024 6 :04 PM EMPLOYEE RELATIONS ADMINISTRATOR POCT GLUCOSE DEVICE Routine 04/11/2024 2 :25 PM EMPLOYEE RELATIONS ADMINISTRATOR POCT GLUCOSE DEVICE Routine 04/11/2024 1 2:10 PM EMPLOYEE RELATIONS ADMINISTRATOR INFECTION PREVENTION VRE CULTURE Routine 04/11/2024 8:41 AM EMPLOYEE RELATIONS ADMINISTRATOR H. PYLORI ANTIGEN, STOOL Routine 04/11/2024 8:41 AM EMPLOYEE RELATIONS ADMINISTRATOR C. DIFFICILE TESTING Routine 04/11/2024 8:41 AM EMPLOYEE RELATIONS ADMINISTRATOR STOOL CULTURE Routine 04/11/2024 8:41 AM EMPLOYEE RELATIONS ADMINISTRATOR POCT GLUCOSE DEVICE Routine 04/11/2024 8 :30 AM EMPLOYEE RELATIONS ADMINISTRATOR TROPONIN I HIGH-SENSITIVITY 6-HOUR Timed 04/11/2024 4:47 AM EMPLOYEE RELATIONS ADMINISTRATOR CELL DIFFERENTIAL, BODY FLUID Routine 04/11/2024 3:51 AM EMPLOYEE RELATIONS ADMINISTRATOR CELL COUNT W/REFLEX DIFFERENTIAL, BODY FLUID Routine 04/11/2024 3:51 AM EMPLOYEE RELATIONS ADMINISTRATOR AEROBIC AND ANAEROBIC CULTURE AND GRAM STAIN Routine 04/11/2024 3:51 AM EMPLOYEE RELATIONS ADMINISTRATOR POCT GLUCOSE DEVICE Routine 04/11/2024 3 :43 AM EMPLOYEE RELATIONS ADMINISTRATOR SEPSIS LACTATE WITH REFLEX Timed 04/11/2024 3:41 AM EMPLOYEE RELATIONS ADMINISTRATOR TROPONIN I HIGH-SENSITIVITY 4-HOUR Timed 04/11/2024 3:41 AM EMPLOYEE RELATIONS ADMINISTRATOR CT ABDOMEN PELVIS W CONTRAST ED 04/11/2024 2:21 AM EMPLOYEE RELATIONS ADMINISTRATOR ECG 12-LEAD Routine 04/11/2024 1:52 AM EMPLOYEE RELATIONS ADMINISTRATOR TROPONIN I HIGH-SENSITIVITY 2-HOUR Timed 04/11/2024 1:48 AM EMPLOYEE RELATIONS ADMINISTRATOR PA CRITICAL CARE ILL/INJURED PATIENT INIT 30-74 MIN Routine 04/11/2024 1:29 AM EMPLOYEE RELATIONS ADMINISTRATOR XR CHEST 1 VIEW ED 04/11/2024 1:01 AM EMPLOYEE RELATIONS ADMINISTRATOR SEPSIS LACTATE WITH REFLEX STAT 04/11/2024 12:17 AM EMPLOYEE RELATIONS ADMINISTRATOR HEMOGLOBIN A1C STAT 04/10/2024 11:41 PM EMPLOYEE RELATIONS ADMINISTRATOR CHOLESTEROL, LDL, DIRECT STAT 04/10/2024 11:41 PM EMPLOYEE RELATIONS ADMINISTRATOR LIPID PANEL STAT 04/10/2024 11:41 PM EMPLOYEE RELATIONS ADMINISTRATOR CRITICAL RESULT CALLBACK CARDIO CHEM STAT 04/10/2024 11:41 PM EMPLOYEE RELATIONS ADMINISTRATOR EGFR STAT 04/10/2024 11:41 PM EMPLOYEE RELATIONS ADMINISTRATOR TSH STAT 04/10/2024 11:41 PM EMPLOYEE RELATIONS ADMINISTRATOR DIFFERENTIAL AUTO STAT 04/10/2024 11: 41 PM EMPLOYEE RELATIONS ADMINISTRATOR TROPONIN I HIGH-SENSITIVITY SERIES (BASELINE, 2HR, 4HR, 6HR) STAT 04/10/2024 11:41 PM EMPLOYEE RELATIONS ADMINISTRATOR COMPREHENSIVE METABOLIC PANEL STAT 04/10/2024 11:41 PM EMPLOYEE RELATIONS ADMINISTRATOR CBC WITH AUTO DIFFERENTIAL STAT 04/10/2024 11:41 PM EMPLOYEE RELATIONS ADMINISTRATOR RESPIRATORY PATHOGEN PANEL STAT 04/10/2024 11:41 PM EMPLOYEE RELATIONS ADMINISTRATOR BLOOD CULTURE STAT 04/10/2024 11:41 PM EMPLOYEE RELATIONS ADMINISTRATOR BLOOD CULTURE Routine 04/10/2024 11:41 PM EMPLOYEE RELATIONS ADMINISTRATOR ECG 12-LEAD STAT 04/10/2024 11:15 PM EMPLOYEE RELATIONS ADMINISTRATOR OCT, RETINA - OU - BOTH EYES Routine 03/09/2024 2:00 PM EMPLOYEE RELATIONS ADMINISTRATOR Cystoid macular edema of both eyes from [...] 300 + = 14 units Active FA-vit Udjnt-F-xozz-vitamin D3 (Dialyvite 800-Ultra D) 0.8-2,000 mg-unit tablet [...] PDT. - Patient returned to [facility] for ongoing care and follow up Assessment & Plan (03/09/2024 6:25 PM EMPLOYEE RELATIONS ADMINISTRATOR): Vision OD trends mild improvement, though still [...] We discussed that genetic results would not foreign exchange trader. Given we have exhausted available treatment without VA improvement, and CME is improving spontaneously, patient can follow in [facility]. Assessment & Plan (10/08/2023 2:51 PM [...] 2 weeks and have patient return to [facility] retina in 4 weeks [...] 03/26/2021 Assessment & Plan (03/26/2021 1:17 PM EMPLOYEE RELATIONS ADMINISTRATOR): Enlarged mild sella turcica on a routine [...] units Assessment & Plan (03/26/2021 1:17 PM EMPLOYEE RELATIONS ADMINISTRATOR): Chronic, uncontrolled, improving A1c today 7.7 % [...] WNL Assessment & Plan (03/26/2021 1:16 PM EMPLOYEE RELATIONS ADMINISTRATOR): Pt currently on Levothyroxine 112 mcg oral [...] 11/18/2018 Assessment & Plan (01/21/2019 2:02 PM EMPLOYEE RELATIONS ADMINISTRATOR): Symptomatic. Will request for esophageal manometry. Continue [...] well Assessment & Plan (03/26/2021 1:16 PM EMPLOYEE RELATIONS ADMINISTRATOR): On statin therapy Tolerating well Last lipid [...] nephrectomy. 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 [id number] Immunizations Immunization Administration Dates Next Due Hep [...] = 0.6 oz pur e alcohol) rarely [facility] Utilities Answer Date Recorded In the [...] often do you attend chur ch or gnosticist services? Never 03/25/2023 Do you belong to any clubs o r organizations such as protestant groups, unions, fraternal or athletic groups, or [...] slept in a fpc (including now)? 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 Sex Male 2:23 AM EMPLOYEE RELATIONS ADMINISTRATOR Gender Identity Not on file Sexual Orientation Not on file Occupation Industry Job Start Date Job End Date Retired Not on file Not on file Not on file Last Filed Vital Signs Vital Sign Reading Time Taken Comments Blood Pressure 154/73 04/13/2024 11:52 AM EMPLOYEE RELATIONS ADMINISTRATOR Pulse 67 04/13/2024 8:33 AM EMPLOYEE RELATIONS ADMINISTRATOR Temperature 36.7 C (98.1 F) 04/13/2024 8:33 AM EMPLOYEE RELATIONS ADMINISTRATOR Respiratory Rate 16 04/13/2024 8:33 AM EMPLOYEE RELATIONS ADMINISTRATOR Oxygen Saturation 98% 04/13/2024 8:33 AM EMPLOYEE RELATIONS ADMINISTRATOR Inhaled Oxygen Concentration - - Weight 110.6 kg (243 lb 13.3 oz) 04/12/2024 8:00 PM EMPLOYEE RELATIONS ADMINISTRATOR Height 172.7 cm (5' 8 ) 04/11/2024 3:40 PM EMPLOYEE RELATIONS ADMINISTRATOR Body Mass Index 37.07 04/11/2024 3:40 PM EMPLOYEE RELATIONS ADMINISTRATOR Results * POCT glucose (04/13/2024 11:30 AM EMPLOYEE RELATIONS ADMINISTRATOR) Glucose, POC 143 70 - 199 mg/dL Blood 04/13/2024 11:3 0 AM EMPLOYEE RELATIONS ADMINISTRATOR 04/13/2024 11:30 AM EMPLOYEE RELATIONS ADMINISTRATOR Nicole Boo MD LAB POCT ORDERABLES - DEVIC E Final Result Performing Organization Address City/State/[facility] Co de Phone Number [facility] [place] [address] * POCT glucose (04/13/2024 8:00 AM EMPLOYEE RELATIONS ADMINISTRATOR) Glucose, POC 117 70 - 199 mg/dL Blood 04/13/2024 8:00 AM EMPLOYEE RELATIONS ADMINISTRATOR 04/13/2024 8:00 AM EMPLOYEE RELATIONS ADMINISTRATOR Nicole Boo MD LAB POCT ORDERABLES - DEVIC E Final Result Performing Organization Address [facility] de Phone Number [facility] [place] [address] * (ABNORMAL) eGFR (04/13/2024 5:06 AM EMPLOYEE RELATIONS ADMINISTRATOR) eGFR 5(L) >=60 mL/min/1. 73 m2 Comment: [...] last reviewed 2020. Blood 04/13/2024 5:06 AM EMPLOYEE RELATIONS ADMINISTRATOR 04/13/2024 5:31 AM EMPLOYEE RELATIONS ADMINISTRATOR Saul Engle MD LAB BLOOD ORDERABLES Final Resul t Performing Organization Address [facility]/State/ZIP Co de Phone Number [facility] [place] [address] * (ABNORMAL) CBC without differential (04/13/2024 5:06 AM EMPLOYEE RELATIONS ADMINISTRATOR) Pathologist [facility] WBC 8.7 3.8 - 9.9 K/cumm Hgb 8.4(L) 13.0 - 17.5 g/dL [facility] Hct 25.4(L) 38.9 - 50.3 % [facility] Plt 214 150 - 400 K/cumm [facility] MPV 11.0 9.1 - 12.3 fL [facility] RBC 2.71(L) 4.30 - 5.80 M/cumm [facility] MCV 93.7 81.3 - 96.4 fL [facility] MCH 31.0 27.1 - 33.3 pg [facility] MCHC 33.1 32.3 - 35.7 g/dL [facility] RDW CV 15.9(H) 11.1 - 14.9 % [facility] RDW SD 52.7(H) 35.7 - 48.1 fL [facility] NRBC abs 0.02(H) 0.00 - 0.01 K/cumm [facility] Blood 04/13/2024 5:06 AM EMPLOYEE RELATIONS ADMINISTRATOR 04/13/2024 5:31 AM EMPLOYEE RELATIONS ADMINISTRATOR Saul Engle MD LAB BLOOD ORDERABLES Final Resul t [facility] Department [place] [address] * (ABNORMAL) Comprehensive metabolic panel (04/13/2024 5:06 AM EMPLOYEE RELATIONS ADMINISTRATOR) Sodium 134(L) 135 - 145 mmol/L Potassium, pl 3.5 3.3 - 4.9 mmol/L [facility] Chloride 95(L) 97 - 110 mmol/L [facility] CO2 25 22 - 32 mmol/L [facility] Anion gap 14 2 - 15 mmol/L [facility] BUN 43(H) 6 - 25 mg/dL [facility] Creatinine 10.98(H) 0.80 - 1.30 mg/dL [facility] Glucose 125 70 - 199 mg/dL [facility] Comment: Interpretive Data Fasting [...] 2022. Calcium 8.2(L) 8.5 - 10.3 mg/dL [facility] Bilirubin, total 0.2 0.1 - 1.2 mg/dL [facility] Protein, pl 5.8(L) 6.5 - 8.5 g/dL [facility] Albumin 2.9(L) 3.5 - 5.0 g/dL [facility] Alk phos 41 40 - 130 Units/L [facility] ALT 18 7 - 55 Units/L [facility] AST 23 10 - 50 Units/L [facility] Blood 04/13/2024 5:06 AM EMPLOYEE RELATIONS ADMINISTRATOR 04/13/2024 5:31 AM EMPLOYEE RELATIONS ADMINISTRATOR us Saul Engle MD LAB BLOOD ORDERABLES Final Resul t [facility] Department [place] [address] * POCT glucose (04/13/2024 1:57 AM EMPLOYEE RELATIONS ADMINISTRATOR) [facility] Signature Glucose, POC 151 70 - 199 mg/dL Blood 04/13/2024 1:57 AM EMPLOYEE RELATIONS ADMINISTRATOR 04/13/2024 1:57 AM EMPLOYEE RELATIONS ADMINISTRATOR us Nicole Boo MD LAB POCT ORDERABLES - DEVIC E Final Result Performing Organization Address [facility] de Phone Number [facility] [place] [address] * (ABNORMAL) POCT glucose (04/12/2024 8:29 PM EMPLOYEE RELATIONS ADMINISTRATOR) Glucose, POC 215(H) 70 - 199 mg/dL Blood 04/12/2024 8:29 PM EMPLOYEE RELATIONS ADMINISTRATOR 04/12/2024 8:29 PM EMPLOYEE RELATIONS ADMINISTRATOR us Nicole Boo MD LAB POCT ORDERABLES - DEVIC E Final Result Performing Organization Address [facility] de Phone Number [facility] [place] [address] * (ABNORMAL) POCT glucose (04/12/2024 5:29 PM EMPLOYEE RELATIONS ADMINISTRATOR) Glucose, POC 254(H) 70 - 199 mg/dL Blood 04/12/2024 5:29 PM EMPLOYEE RELATIONS ADMINISTRATOR 04/12/2024 5:29 PM EMPLOYEE RELATIONS ADMINISTRATOR us Nicole Boo MD LAB POCT ORDERABLES - DEVIC E Final Result Performing Organization Address [facility] [place] [address] * POCT glucose (04/12/2024 11:32 AM EMPLOYEE RELATIONS ADMINISTRATOR) Glucose, POC 194 70 - 199 mg/dL Blood 04/12/2024 11:3 2 AM EMPLOYEE RELATIONS ADMINISTRATOR 04/12/2024 11:32 AM EMPLOYEE RELATIONS ADMINISTRATOR us Nicole Boo MD LAB POCT ORDERABLES - DEVIC E Final Result Performing Organization Address [facility] Co de Phone Number [facility] [place] [address] * POCT glucose (04/12/2024 7:54 AM EMPLOYEE RELATIONS ADMINISTRATOR) Glucose, POC 166 70 - 199 mg/dL Blood 04/12/2024 7:54 AM EMPLOYEE RELATIONS ADMINISTRATOR 04/12/2024 7:54 AM EMPLOYEE RELATIONS ADMINISTRATOR us Saul Engle MD LAB POCT ORDERABLES - DEVICE Fin al Result Performing Organization Address [facility] de Phone Number [facility] Department [place] [address] * (ABNORMAL) eGFR (04/12/2024 6:00 AM EMPLOYEE RELATIONS ADMINISTRATOR) eGFR 4(L) >=60 mL/min/1. 73 m2 Comment: [...] last reviewed 2020. Blood 04/12/2024 6:00 AM EMPLOYEE RELATIONS ADMINISTRATOR 04/12/2024 6:18 AM EMPLOYEE RELATIONS ADMINISTRATOR us Saul Engle MD LAB BLOOD ORDERABLES Final Resul t Performing Organization Address City/[facility] Co de Phone Number [facility] [place] [address] * (ABNORMAL) CBC without differential (04/12/2024 6:00 AM EMPLOYEE RELATIONS ADMINISTRATOR) [facility] WBC 9.3 3.8 - 9.9 K/cumm Hgb 8.5(L) 13.0 - 17.5 g/dL [facility] Hct 25.6(L) 38.9 - 50.3 % [facility] Plt 225 150 - 400 K/cumm [facility] MPV 11.1 9.1 - 12.3 fL [facility] RBC 2.74(L) 4.30 - 5.80 M/cumm [facility] MCV 93.4 81.3 - 96.4 fL [facility] MCH 31.0 27.1 - 33.3 pg [facility] MCHC 33.2 32.3 - 35.7 g/dL [facility] RDW CV 15.7(H) 11.1 - 14.9 % [facility] RDW SD 52.7(H) 35.7 - 48.1 fL [facility] NRBC abs 0.02(H) 0.00 - 0.01 K/cumm [facility] Blood 04/12/2024 6:00 AM EMPLOYEE RELATIONS ADMINISTRATOR 04/12/2024 6:18 AM EMPLOYEE RELATIONS ADMINISTRATOR us Saul Engle MD LAB BLOOD ORDERABLES Final Resul t [facility] Department [place] [address] * (ABNORMAL) Comprehensive metabolic panel (04/12/2024 6:00 AM EMPLOYEE RELATIONS ADMINISTRATOR) [facility] Sodium 140 135 - 145 mmol/L Potassium, pl 3.5 3.3 - 4.9 mmol/L [facility] Chloride 98 97 - 110 mmol/L [facility] CO2 27 22 - 32 mmol/L [facility] Anion gap 15 2 - 15 mmol/L [facility] BUN 49(H) 6 - 25 mg/dL [facility] Creatinine 11.24(H) 0.80 - 1.30 mg/dL [facility] Glucose 153 70 - 199 mg/dL [facility] Comment: Interpretive Data Fasting [...] 2022. Calcium 8.4(L) 8.5 - 10.3 mg/dL [facility] Bilirubin, total 0.2 0.1 - 1.2 mg/dL [facility] Protein, pl 5.5(L) 6.5 - 8.5 g/dL [facility] Albumin 3.0(L) 3.5 - 5.0 g/dL [facility] Alk phos 41 40 - 130 Units/L [facility] ALT 23 7 - 55 Units/L [facility] AST 30 10 - 50 Units/L [facility] Blood 04/12/2024 6:00 AM EMPLOYEE RELATIONS ADMINISTRATOR 04/12/2024 6:18 AM EMPLOYEE RELATIONS ADMINISTRATOR Saul Engle MD LAB BLOOD ORDERABLES Final Resul t Performing Organization Address [facility] Co de Phone Number [facility] Department [place] [address] * POCT glucose (04/12/2024 4:35 AM EMPLOYEE RELATIONS ADMINISTRATOR) [facility] Glucose, POC 169 70 - 199 mg/dL Blood 04/12/2024 4:35 AM EMPLOYEE RELATIONS ADMINISTRATOR 04/12/2024 4:35 AM EMPLOYEE RELATIONS ADMINISTRATOR Saul Engle MD LAB POCT ORDERABLES - DEVICE Fin al Result Performing Organization Address [facility] Co [place] [address] * POCT glucose (04/12/2024 12:34 AM EMPLOYEE RELATIONS ADMINISTRATOR) Glucose, POC 184 70 - 199 mg/dL Blood 04/12/2024 12:3 4 AM EMPLOYEE RELATIONS ADMINISTRATOR 04/12/2024 12:34 AM EMPLOYEE RELATIONS ADMINISTRATOR Saul Engle MD LAB POCT ORDERABLES - DEVICE Fin al Result Performing Organization Address [facility] [place] [address] * POCT glucose (04/11/2024 9:13 PM EMPLOYEE RELATIONS ADMINISTRATOR) Glucose, POC 169 70 - 199 mg/dL Blood 04/11/2024 9:13 PM EMPLOYEE RELATIONS ADMINISTRATOR 04/11/2024 9:13 PM EMPLOYEE RELATIONS ADMINISTRATOR Saul Engle MD LAB POCT ORDERABLES - DEVICE Fin al Result Performing Organization Address [facility]/[place] [address] * POCT glucose (04/11/2024 6:04 PM EMPLOYEE RELATIONS ADMINISTRATOR) Glucose, POC 161 70 - 199 mg/dL Blood 04/11/2024 6:04 PM EMPLOYEE RELATIONS ADMINISTRATOR 04/11/2024 6:04 PM EMPLOYEE RELATIONS ADMINISTRATOR Saul Engle MD LAB POCT ORDERABLES - DEVICE Fin al Result Performing Organization Address City/[facility] [place] [address] * (ABNORMAL) POCT glucose (04/11/2024 2:25 PM EMPLOYEE RELATIONS ADMINISTRATOR) Glucose, POC 201(H) 70 - 199 mg/dL Comment:Glu2: RN/ Notified Glucose comment 1 Glu2: RN/MD Notified [facility] Blood 04/11/2024 2:25 PM EMPLOYEE RELATIONS ADMINISTRATOR 04/11/2024 2:25 PM EMPLOYEE RELATIONS ADMINISTRATOR Nicole Boo MD LAB POCT ORDERABLES - DEVIC E Final Result Performing Organization Address [facility] Co de Phone Number [facility] [place] [address] * POCT glucose (04/11/2024 12:10 PM EMPLOYEE RELATIONS ADMINISTRATOR) Pathologist [facility] Glucose, POC 193 70 - 199 mg/dL Blood 04/11/2024 12:1 0 PM EMPLOYEE RELATIONS ADMINISTRATOR 04/11/2024 12:10 PM EMPLOYEE RELATIONS ADMINISTRATOR Nicole Boo MD LAB POCT ORDERABLES - DEVIC E Final Result Performing Organization Address [facility] de Phone Number [facility] [place] [address] * C. difficile testing Stool (04/11/2024 8:41 AM EMPLOYEE RELATIONS ADMINISTRATOR) [facility] Result Negative Negative Toxin Result Negative Negative [facility] C. diff result Negative, free toxin Negative, free toxin [facility] C. diff interp Negative for toxigenic Clostridioides (Clostridium) difficile. Analysis was performed using a glutamate dehydrogenase antigen detection assay combined with a C. difficile toxin detection assay. [facility] Stool 04/11/2024 8:41 AM EMPLOYEE RELATIONS ADMINISTRATOR 04/11/2024 11:19 AM EMPLOYEE RELATIONS ADMINISTRATOR Nicole Boo MD LAB MICROBIOLOGY - GENERAL ORDERABLES Final Result Performing Organization Address [facility] Co de Phone Number [facility] Department [place] [address] * H. pylori antigen, stool Stool (04/11/2024 8:41 AM EMPLOYEE RELATIONS ADMINISTRATOR) H. pylori Ag, stool Negative Negative Comment: Interpretative Data Testing performed at the [facility] using the [employer] HpSA [...] revised February 2020. Stool 04/11/2024 8:41 AM EMPLOYEE RELATIONS ADMINISTRATOR 04/11/2024 11:20 AM EMPLOYEE RELATIONS ADMINISTRATOR Nicole Boo MD LAB MICROBIOLOGY - GENERAL ORDERABLES Final Result Performing Organization Address City/[facility] Co de Phone Number [facility] Department [place] [address] * Infection Prevention VRE Culture Stool (04/11/2024 8:41 AM EMPLOYEE RELATIONS ADMINISTRATOR) Report Final Report: Negative Stool 04/11/2024 8:41 AM EMPLOYEE RELATIONS ADMINISTRATOR 04/11/2024 1:46 PM EMPLOYEE RELATIONS ADMINISTRATOR Narrative [facility] - 04/13/2024 2:39 PM EMPLOYEE RELATIONS ADMINISTRATOR Surveillance culture for Infection Prevention purposes only; results indicate colonization, not infection requiring treatment. Testing performed by [facility] ([phone]). Nicole Boo MD LAB MICROBIOLOGY - GENERAL ORDERABLES Final Result [facility] [place] [address] * Stool culture Stool Rectum (04/11/2024 8:41 AM EMPLOYEE RELATIONS ADMINISTRATOR) Direct Specimen Exam Shiga Toxin Testing: Antigen detection assay for Shiga-toxin NEGATIVE for Shiga Toxin 1 and Shiga Toxin 2. Report Final Report: No growth of enteric bacterial pathogens [facility] Stool (Rectum) 04/11/2024 8: 41 AM EMPLOYEE RELATIONS ADMINISTRATOR 04/11/2024 11:21 AM EMPLOYEE RELATIONS ADMINISTRATOR Narrative [facility] - 04/15/2024 10:42 AM EMPLOYEE RELATIONS ADMINISTRATOR Testing performed by [facility] ([phone]). Routine stool cultures include procedures to detect Salmonella, Shigella, Edwardsiella, Aeromonas, Pleisiomonas, Campylobacter, Yersinia, E. coli O157, and Shiga-like toxins. Vibrio is cultured only upon special request. If Vibrio is suspected, please call the laboratory at [phone]. Interpretive data was last updated June 24, 2016. Nicole Boo MD LAB MICROBIOLOGY - GENERAL ORDERABLES Final Result [facility] Department [place] [address] * POCT glucose (04/11/2024 8:30 AM EMPLOYEE RELATIONS ADMINISTRATOR) Glucose, POC 150 70 - 199 mg/dL Blood 04/11/2024 8:30 AM EMPLOYEE RELATIONS ADMINISTRATOR 04/11/2024 8:30 AM EMPLOYEE RELATIONS ADMINISTRATOR Nicole Boo MD LAB POCT ORDERABLES - DEVIC E Final Result Performing Organization Address City/[facility]/ZIP Co de Phone Number [facility] [place] [address] * (ABNORMAL) Troponin I high-sensitivity 6-hour (04/11/2024 4:47 AM EMPLOYEE RELATIONS ADMINISTRATOR) Trop I hs 193(H) <=35 ng/L Comment: Interpretive Data For further hscTnI resources including the diagnostic algorithm and an aid in interpretation, copy and paste this link: https://bjhlab.testcatalog.org/show/hsTrop-1 Current Interpretive Data last revised 2019. Trop I hs pct delta -13 % [facility] Trop I hs interp Equivocal [facility] Blood 04/11/2024 4:47 AM EMPLOYEE RELATIONS ADMINISTRATOR 04/11/2024 5:05 AM EMPLOYEE RELATIONS ADMINISTRATOR Roberto Medina MD LAB BLOOD ORDERABLES F inal Result Performing Organization Address [facility] Co de Phone Number [facility] [place] [address] * Cell Differential, Body Fluid (04/11/2024 3:51 AM EMPLOYEE RELATIONS ADMINISTRATOR) Total cells diffed 100 cells Comment: Interpretive [...] % [facility] Fluid 04/11/2024 3:51 AM EMPLOYEE RELATIONS ADMINISTRATOR 04/11/2024 5:30 AM EMPLOYEE RELATIONS ADMINISTRATOR Saul Engle MD LAB BODY FLUIDS AND STOOLS ORDER MICHELLE Final Result Performing Organization Address [facility] de Phone Number [facility] [place] [address] * Cell count w/rflx diff, body fluid (04/11/2024 3:51 AM EMPLOYEE RELATIONS ADMINISTRATOR) Specimen type, fld Dialysate Color, fld Straw [...] /cumm [facility] Fluid 04/11/2024 3:51 AM EMPLOYEE RELATIONS ADMINISTRATOR 04/11/2024 5:30 AM EMPLOYEE RELATIONS ADMINISTRATOR Result [facility] Saul Engle MD LAB BODY FLUIDS AND STOOLS ORDER MICHELLE Final Result Performing Organization Address [facility] de Phone Number [facility] Department [place] [address] * Aerobic and anaerobic culture and gram stain Peritoneal dialysis fluid Peritoneum (04/11/2024 3:51 AM EMPLOYEE RELATIONS ADMINISTRATOR) Direct Specimen Exam Stain: Cytospin Gram stain shows: Rare polymorphonuclear leukocytes seen. Other cellular material present. No organisms seen. Report Final Report: No growth [facility] Peritoneal dialysis fluid (Peritoneum) 04/11/2024 3:51 AM EMPLOYEE RELATIONS ADMINISTRATOR 04/11/2024 6:13 AM EMPLOYEE RELATIONS ADMINISTRATOR Narrative [facility] - 04/17/2024 12:22 PM EMPLOYEE RELATIONS ADMINISTRATOR Fluid specimen received. Testing performed by [facility]biology [facility] ([phone]) Specimens submitted from normally sterile body sites [...] ORDER MICHELLE Final Result Performing Organization Address [facility] Co de Phone Number [facility] Department [place] [address] * (ABNORMAL) POCT glucose (04/11/2024 3:43 AM EMPLOYEE RELATIONS ADMINISTRATOR) Glucose, POC 223(H) 70 - 199 mg/dL Blood 04/11/2024 3:43 AM EMPLOYEE RELATIONS ADMINISTRATOR 04/11/2024 3:43 AM EMPLOYEE RELATIONS ADMINISTRATOR Result [facility] Saul Engle MD LAB POCT ORDERABLES - DEVICE Fin al Result Performing Organization Address [facility] Co de Phone Number [facility] [place] [place] [address] * (ABNORMAL) Troponin I high-sensitivity 4-hour (04/11/2024 3:41 AM EMPLOYEE RELATIONS ADMINISTRATOR) Trop I hs 192(H) <=35 ng/L Comment: Interpretive Data For further hscTnI resources including the diagnostic algorithm and an aid in interpretation, copy and paste this link: https://bjhlab.testcatalog.org/show/hsTrop-[email or web address] Current Interpretive Data last revised 2019. Trop I hs pct delta -14 % [facility] Trop I hs interp Equivocal [facility] Blood 04/11/2024 3:41 AM EMPLOYEE RELATIONS ADMINISTRATOR 04/11/2024 4:09 AM EMPLOYEE RELATIONS ADMINISTRATOR Roberto Medina MD LAB BLOOD ORDERABLES F inal Result Performing Organization Address [facility] de Phone Number [facility] [place] [place] [address] * Sepsis Lactate w/ Reflex (04/11/2024 3:41 AM EMPLOYEE RELATIONS ADMINISTRATOR) Sepsis Lactate 2.0 0.7 - 2.0 mmol/L Blood 04/11/2024 3:41 AM EMPLOYEE RELATIONS ADMINISTRATOR 04/11/2024 3:48 AM EMPLOYEE RELATIONS ADMINISTRATOR Roberto Medina MD LAB BLOOD ORDERABLES F inal Result Performing Organization Address [facility] Co de Phone Number [facility] [place] [place] [address] * CT Abdomen Pelvis W Contrast (04/11/2024 2:21 AM EMPLOYEE RELATIONS ADMINISTRATOR) Anatomical Region Laterality Modality Body N/A Computed Tomogra phy 04/11/2024 2:42 AM EMPLOYEE RELATIONS ADMINISTRATOR Impressions 04/11/2024 1:21 PM EMPLOYEE RELATIONS ADMINISTRATOR 1. Peritoneal dialysis catheter in place with [...] Wallace Mederos M.D. Narrative 04/11/2024 1:21 PM EMPLOYEE RELATIONS ADMINISTRATOR EXAMINATION: Computed tomography of the abdomen and [...] Result * ECG 12-LEAD (04/11/2024 1:52 AM EMPLOYEE RELATIONS ADMINISTRATOR) Narrative [facility] - 04/11/2024 1:52 AM EMPLOYEE RELATIONS ADMINISTRATOR Olu Collins MD 04/11/2024 1:54 AM ECG [...] Medina MD ECG ORDERABLES Final Result [facility] * (ABNORMAL) Troponin I high-sensitivity 2-hour (04/11/2024 1:48 AM EMPLOYEE RELATIONS ADMINISTRATOR) Trop I hs 214(C) <=35 ng/L Comment: Previous critical value noted within 48 hours ago. Interpretive Data For further hscTnI resources including the diagnostic algorithm and an aid in interpretation, copy and paste this link: https://bjhlab.testcatalog.org/show/hsTrop-[email or web address] Current Interpretive Data last revised 2019. Trop I hs pct delta -4 % [facility] Trop I hs interp Insignificant [facility] Blood 04/11/2024 1:48 AM EMPLOYEE RELATIONS ADMINISTRATOR 04/11/2024 2:01 AM EMPLOYEE RELATIONS ADMINISTRATOR Roberto Medina MD LAB BLOOD ORDERABLES F inal Result [facility] [place] [address] * PA CRITICAL CARE ILL/INJURED PATIENT INIT 30-74 MIN (04/11/2024 1:29 AM EMPLOYEE RELATIONS ADMINISTRATOR) Narrative Olu Collins MD - 04/11/2024 1:29 AM EMPLOYEE RELATIONS ADMINISTRATOR Olu Collins MD 04/11/2024 5:14 AM Critical [...] Chest 1 Vw Portable (04/11/2024 1:01 AM EMPLOYEE RELATIONS ADMINISTRATOR) Anatomical Region Laterality Modality Body, Chest N/A Computed Radiogr aphy 04/11/2024 1:48 AM EMPLOYEE RELATIONS ADMINISTRATOR Impressions 04/11/2024 1:25 PM EMPLOYEE RELATIONS ADMINISTRATOR Comparison to 04/11/2024 No pneumothorax. Small lung [...] Wallace Mederos M.D. Narrative 04/11/2024 1:25 PM EMPLOYEE RELATIONS ADMINISTRATOR EXAMINATION: 1 view chest radiograph Procedure Note [...] Sepsis Lactate w/ Reflex (04/11/2024 12:17 AM EMPLOYEE RELATIONS ADMINISTRATOR) [facility] Sepsis Lactate 2.4(H) 0.7 - 2.0 mmol/L Blood 04/11/2024 12:1 7 AM EMPLOYEE RELATIONS ADMINISTRATOR 04/11/2024 12:22 AM EMPLOYEE RELATIONS ADMINISTRATOR Prek Bhavesh Medina MD LAB BLOOD ORDERABLES F inal Result [facility] Department [place] [address] * (ABNORMAL) Troponin I high-sensitivity series (baseline, 2hr, 4hr, 6hr) (04/10/2024 11:41 PM EMPLOYEE RELATIONS ADMINISTRATOR) Trop I hs 223(C) <=35 ng/L Comment: Reviewed Interpretive Data For further hscTnI resources including the diagnostic algorithm and an aid in interpretation, copy and paste this link: https://bjhlab.testcatalog.org/show/[email or web address] Current Interpretive Data last revised 2019. Blood 04/10/2024 11:4 1 PM EMPLOYEE RELATIONS ADMINISTRATOR 04/10/2024 11:54 PM EMPLOYEE RELATIONS ADMINISTRATOR Premat Medina MD LAB BLOOD ORDERABLES F inal Result Performing Organization Address City/[facility]/ZIP Co de Phone Number [facility] [place] [place] [address] * Critical result callback Cardio chemistry (04/10/2024 11:41 PM EMPLOYEE RELATIONS ADMINISTRATOR) Pathologist [facility] Date Notified [id number] Time Notified 108 [facility] Test name Trop I hs [facility] Called/Read Back Olu [facility] Credentials MD [facility] Called By KIM [facility] Blood 04/10/2024 11:4 1 PM EMPLOYEE RELATIONS ADMINISTRATOR 04/10/2024 11:54 PM EMPLOYEE RELATIONS ADMINISTRATOR Premat Medina MD LAB BLOOD ORDERABLES F inal Result Performing Organization Address City/[facility] Co de Phone Number [facility] Department [place] [address] * (ABNORMAL) eGFR (04/10/2024 11:41 PM EMPLOYEE RELATIONS ADMINISTRATOR) Pathologist [facility] eGFR 5(L) >=60 mL/min/1. [...] reviewed 2020. Blood 04/10/2024 11:4 1 PM EMPLOYEE RELATIONS ADMINISTRATOR 04/10/2024 11:55 PM EMPLOYEE RELATIONS ADMINISTRATOR Sumit Baptiste MD LAB BLOOD ORDERABLES Kenna haider Result [facility] Department [place] [address] * (ABNORMAL) Differential, auto (04/10/2024 11:41 PM EMPLOYEE RELATIONS ADMINISTRATOR) Pathologist [facility] Neutrophil abs 9.3(H) 1.5 - 6.5 K/cumm Imm gran abs 1.1(H) 0.0 - 0.1 K/cumm [facility] Lymphocyte abs 1.6 0.8 - 3.3 K/cumm [facility] Monocyte abs 1.0(H) 0.2 - 0.8 K/cumm [facility] Eosinophil abs 0.1 0.0 - 0.5 K/cumm [facility] Basophil abs 0.1 0.0 - 0.1 K/cumm [facility] Neutrophil pct 71.0 % [facility] Comment: Confirmed by smear review Interpretive Data Percent cell count reference ranges are not reported, since discordance with absolute values may lead to misinterpretation of CBC data. Current Interpretive Data was last revised on 2017. Imm gran pct 8.2 % [facility] Comment: Interpretive Data Percent cell count reference ranges are not reported, since discordance with absolute values may lead to misinterpretation of CBC data. Current Interpretive Data was last revised on 2017. Lymphocyte pct 12.3 % [facility] Comment: Interpretive Data Percent cell count reference ranges are not reported, since discordance with absolute values may lead to misinterpretation of CBC data. Current Interpretive Data was last revised on 2017. Monocyte pct 7.3 % [facility] Comment: Interpretive Data Percent cell count reference ranges are not reported, since discordance with absolute values may lead to misinterpretation of CBC data. Current Interpretive Data was last revised on 2017. Eosinophil pct 0.8 % [facility] Comment: Interpretive Data Percent cell count reference ranges are not reported, since discordance with absolute values may lead to misinterpretation of CBC data. Current Interpretive Data was last revised on 2017. Basophil pct 0.4 % [facility] Comment: Interpretive Data Percent cell count reference ranges are not reported, since discordance with absolute values may lead to misinterpretation of CBC data. Current Interpretive Data was last revised on 2017. Blood 04/10/2024 11:4 1 PM EMPLOYEE RELATIONS ADMINISTRATOR 04/10/2024 11:54 PM EMPLOYEE RELATIONS ADMINISTRATOR Sumit Baptiste MD LAB BLOOD ORDERABLES Kenna haider Result [facility] Department [place] [address] * Respiratory pathogen panel Nasopharyngeal (04/10/2024 11:41 PM EMPLOYEE RELATIONS ADMINISTRATOR) Pathologist [facility] Influenza A RNA Not Detected Not Detected Influenza B RNA Not Detected Not Detected [facility] RSV RNA Not Detected Not Detected [facility] COVID-19 RNA Not Detected Not Detected [facility] Coronavirus 229E RNA Not Detected Not Detected [facility] Coronavirus HKU1 RNA Not Detected Not Detected [facility] Coronavirus NL63 RNA Not Detected Not Detected [facility] Coronavirus OC43 RNA Not Detected Not Detected [facility] Adenovirus DNA Not Detected Not Detected [facility] Metapneumovirus RNA Not Detected Not Detected [facility] Rhinovirus/Enterov irus RNA Not Detected Not Detected [facility] Parainfluenza 1 RNA Not Detected Not Detected [facility] Parainfluenza 2 RNA Not Detected Not Detected [facility] Parainfluenza 3 RNA Not Detected Not Detected [facility] Parainfluenza 4 RNA Not Detected Not Detected [facility] B. pertussis DNA Not Detected Not Detected [facility] B. parapertussis DNA Not Detected Not Detected [facility] C. pneumoniae DNA Not Detected Not Detected [facility] M. pneumoniae DNA Not Detected Not Detected [facility] Nasopharyngeal 04/10/2024 11 :41 PM EMPLOYEE RELATIONS ADMINISTRATOR 04/11/2024 12:16 AM EMPLOYEE RELATIONS ADMINISTRATOR Narrative [facility] - 04/11/2024 1:23 AM EMPLOYEE RELATIONS ADMINISTRATOR Is the Patient experiencing symptoms consistent with COVID?->Unknown Surveillance testing for transplant patient?->No Interpretive Data The [employer] FilmArray Respiratory Panel (RP2.1) assay is a [...] assay has FDA clearance for testing of AUTOMATION TECH swabs. The performance of additional specimen types has been assessed by the performing laboratory. The performance characteristics of this assay have been determined by [facility] Infectious Disease [facility]. Current interpretive data was last revised on 21. us Prerak Bhavesh Medina MD LAB MICROBIOLOGY - GEN ERAL ORDERABLES Final Result [facility] Department [place] [address] * (ABNORMAL) CBC with auto differential (04/10/2024 11:41 PM EMPLOYEE RELATIONS ADMINISTRATOR) WBC 13.1(H) 3.8 - 9.9 K/cumm Hgb 9.8(L) 13.0 - 17.5 g/dL [facility] Hct 30.3(L) 38.9 - 50.3 % [facility] Plt 272 150 - 400 K/cumm [facility] MPV 11.5 9.1 - 12.3 fL [facility] RBC 3.21(L) 4.30 - 5.80 M/cumm [facility] MCV 94.4 81.3 - 96.4 fL [facility] MCH 30.5 27.1 - 33.3 pg [facility] MCHC 32.3 32.3 - 35.7 g/dL [facility] RDW CV 15.8(H) 11.1 - 14.9 % [facility] RDW SD 54.0(H) 35.7 - 48.1 fL [facility] NRBC abs 0.00 0.00 - 0.01 K/cumm [facility] Blood 04/10/2024 11:4 1 PM EMPLOYEE RELATIONS ADMINISTRATOR 04/10/2024 11:54 PM EMPLOYEE RELATIONS ADMINISTRATOR Olu Collins MD LAB BLOOD ORDERABLES Final Re sult [facility] Department [place] [address] * Blood culture Blood (04/10/2024 11:41 PM EMPLOYEE RELATIONS ADMINISTRATOR) Report Final Report: No growth Blood 04/10/2024 11:4 1 PM EMPLOYEE RELATIONS ADMINISTRATOR 04/11/2024 1:59 AM EMPLOYEE RELATIONS ADMINISTRATOR Narrative [facility] - 04/15/2024 7:01 AM EMPLOYEE RELATIONS ADMINISTRATOR Collection->Peripheral 1. Blood cultures are incubated for [...] performance characteristics have been verified by the [facility] Microbiology Laboratory. For questions about this culture, contact the Microbiology Laboratory at [phone]. Interpretive data was last revised on 23. Roberto Medina MD LAB MICROBIOLOGY - GEN ERAL ORDERABLES Final Result Performing Organization Address City/[facility]/ZIP Co de Phone Number [facility] SIM[facility] Department [place] [address] * Blood culture Blood (04/10/2024 11:41 PM EMPLOYEE RELATIONS ADMINISTRATOR) Report Final Report: No growth Blood 04/10/2024 11:4 1 PM EMPLOYEE RELATIONS ADMINISTRATOR 04/11/2024 1:59 AM EMPLOYEE RELATIONS ADMINISTRATOR Narrative [facility] - 04/15/2024 7:01 AM EMPLOYEE RELATIONS ADMINISTRATOR Collection->Peripheral 1. Blood cultures are incubated for [...] performance characteristics have been verified by the [facility]biology Laboratory. For questions about this culture, contact the Microbiology Laboratory at [phone]. Interpretive data was last revised on 23. us Roberto Medina MD LAB MICROBIOLOGY - GEN ERAL ORDERABLES Final Result [facility] [place] [address] * TSH (04/10/2024 11:41 PM EMPLOYEE RELATIONS ADMINISTRATOR) Thyroid Stimulating Hormone 3.20 0.30 - 4.20 mcIUnit/mL Blood 04/10/2024 11:4 1 PM EMPLOYEE RELATIONS ADMINISTRATOR 04/10/2024 11:55 PM EMPLOYEE RELATIONS ADMINISTRATOR Olu Collins MD LAB BLOOD ORDERABLES Final Re sult [facility] [place] [address] * Cholesterol, LDL, direct (04/10/2024 11:41 PM EMPLOYEE RELATIONS ADMINISTRATOR) LDL Cholesterol, Direct 41 <=129 mg/dL Comment: [...] on 2017. Blood 04/10/2024 11:4 1 PM EMPLOYEE RELATIONS ADMINISTRATOR 04/10/2024 11:55 PM EMPLOYEE RELATIONS ADMINISTRATOR Narrative [facility] - 04/11/2024 6:09 PM EMPLOYEE RELATIONS ADMINISTRATOR Cholesterol, LDL, direct reflexed based on Elevated Triglyceride (>400) Nicole Boo MD LAB BLOOD ORDERABLES Final Result [facility] [place] [address] * (ABNORMAL) Hemoglobin A1c (04/10/2024 11:41 PM EMPLOYEE RELATIONS ADMINISTRATOR) Hgb A1C 7.0(H) 4.0 - 5.6 % Estimated Average Glucose 154 mg/dL [facility] Comment: The ADA recommends reporting an estimated Average Glucose (eAG) with all Hemoglobin A1c results using the equation derived from a study of 507 normal and diabetic adults. Minority populations were underrepresented and children were not included. (Diabetes Care 2020; 43(S1): S66-S76). The eAG is not equivalent to a fasting glucose. Blood 04/10/2024 11:4 1 PM EMPLOYEE RELATIONS ADMINISTRATOR 04/10/2024 11:57 PM EMPLOYEE RELATIONS ADMINISTRATOR us Saul Engle MD LAB BLOOD ORDERABLES Final Resul t [facility] [place] [address] * (ABNORMAL) Lipid panel (04/10/2024 11:41 PM EMPLOYEE RELATIONS ADMINISTRATOR) Cholesterol 145 30 - 199 mg/dL Comment: [...] revised on 2017. Triglycerides 453(H) <=149 mg/dL [facility] Comment: Interpretive Data Ages < [...] on 2017. HDL 22(L) >=40 mg/dL [facility] Comment: Interpretive Data Ages < [...] 2017. LDL, calculated See Comment <=129 [facility] Comment: Unable to calculate LDL [...] on 2023. Non-HDL Cholesterol 123 mg/dL [facility] Comment: Interpretive Data Ages < [...] [facility] SIM[facility]ON Blood 04/10/2024 11:4 1 PM EMPLOYEE RELATIONS ADMINISTRATOR 04/10/2024 11:55 PM EMPLOYEE RELATIONS ADMINISTRATOR us Nicole Boo MD LAB BLOOD ORDERABLES Final Result [facility] [place] [address] * (ABNORMAL) Comprehensive metabolic panel (04/10/2024 11:41 PM EMPLOYEE RELATIONS ADMINISTRATOR) Sodium 141 135 - 145 mmol/L Potassium, pl 3.4 3.3 - 4.9 mmol/L [facility] Chloride 98 97 - 110 mmol/L [facility] CO2 27 22 - 32 mmol/L [facility] Anion gap 16(H) 2 - 15 mmol/L [facility] BUN 45(H) 6 - 25 mg/dL [facility] Creatinine 10.90(H) 0.80 - 1.30 mg/dL [facility] Glucose 240(H) 70 - 199 mg/dL [facility] Comment: Interpretive Data Fasting [...] 2022. Calcium 9.2 8.5 - 10.3 mg/dL [facility] Bilirubin, total 0.2 0.1 - 1.2 mg/dL [facility] Protein, pl 6.5 6.5 - 8.5 g/dL [facility] Albumin 3.1(L) 3.5 - 5.0 g/dL [facility] Alk phos 64 40 - 130 Units/L [facility] ALT 26 7 - 55 Units/L [facility] AST 30 10 - 50 Units/L [facility] Blood 04/10/2024 11:4 1 PM EMPLOYEE RELATIONS ADMINISTRATOR 04/10/2024 11:55 PM EMPLOYEE RELATIONS ADMINISTRATOR us Olu Collins MD LAB BLOOD ORDERABLES Final Re sult [facility] [place] [address] * (ABNORMAL) ECG 12-LEAD (04/10/2024 11:15 PM EMPLOYEE RELATIONS ADMINISTRATOR) Narrative [facility] - 04/10/2024 11:15 PM EMPLOYEE RELATIONS ADMINISTRATOR Mario Alberto Cornelius MD 04/10/2024 11:17 PM [...] the ED Mario Alberto Cornelius MD 04/10/24 2931 Olu Collins MD ECG ORDERABLES Final Result [facility] * OCT, Retina - OU - Both Eyes (03/09/2024 2:00 PM EMPLOYEE RELATIONS ADMINISTRATOR) Central Macular Thickness OS 227 micrometers CONTINUUM Central Macular Thickness OD 479 micrometers [facility] Anatomical Region Laterality Modality [employer] [facility] e Tomography Narrative 03/16/2024 12:53 PM EMPLOYEE RELATIONS ADMINISTRATOR Right Eye Quality was good. Scan locations [...]
--- OUTSIDE RECORDS SUMMARY | 2024-05-16 15:56 | XMS_ITS | Encounter Summary ---
Author Organization [facility] Address [facility] [place] [address] Care Team Providers Care Superintendent Tests Name Role Phone Deandre Bojorquez MD Unavailable [phone] Jeff Strickland MD Primary Care Provider [phone] Encounter Details Date Type Department Care Team (Late st Contact Info) Description 10/28/2023 Lab Requisition [facility] MAIN LAB [address] [place] [phone] Alan Davenport MD [facility]1 [facility] OF ABD [place] [address] Social History Tobacco Use Types Packs/Day Years [...] Info) Description 06/16/2024 10:00 AM CDT Appointment [facility] NUCLEAR MEDICINE [address] [place] [address] Alan Davenport MD [address] DIV OF [facility] [place] [address] 06/16/2024 11:00 AM CDT Appointment [facility] NUCLEAR MEDICINE [address] [place] [address] Alan Davenport MD [address] DIV OF [facility] [place] [address] 06/16/2024 12:20 PM CDT Appointment [facility] CAT SCAN [facility] [place] [address] Alan Davenport MD [address] DIV OF [facility] [place] [address] 06/16/2024 1:00 PM CDT Appointment [facility] ECHO [address] [place] [address] Alan Davenport MD [address] DIV OF [facility] [place] [address] 06/16/2024 2:00 PM CDT Appointment [facility] US [address] [place] [address] Alan Davenport MD [address] DIV OF [facility] [place] [address] 06/16/2024 2:45 PM CDT Appointment [facility] DIAGNOSTIC RAD OP [address] [place] [address] Alan Davenport MD [address] [facility] [place] [address] 06/16/2024 2:50 PM CDT Appointment [facility] LAB OP DRAW STATION [address] [place] [address] Alan Davenport MD [address] [facility] [place] [address] 06/23/2024 1:00 PM CDT Clinical Support [facility] TRANSPLANT [address] [place] [address] 08/04/2024 11:30 AM CDT Appointment [facility] MRI [facility]1 [place] [address] Thomas Mendoza MD 1225 [facility] 2L DIV [place] [address] 08/04/2024 1:30 PM CDT Office Visit [facility] - Urology [address] [place] [phone] Thomas Mendoza MD [facility]5 [facility] 2L DIV [place] [address] documented as of this encounter Procedures Procedure Name Priority Date/Time Associated Diagnosis Comments HOLD HLA SPECIMEN Routine 10/22/2023 3:5 0 PM CDT documented in this encounter Results * HOLD HLA SPECIMEN (10/22/2023 3:50 PM CDT) Hold HLA Specimen 10/28/2023 5:00 PM CDT [facility] Comment:The Hold HLA specime n has been received into the lab and will be held for 5 years at 4 degrees. Blood BLOOD SPECIMEN / Unknown 10/22/2023 3:50 PM CDT 10/28/2023 3:50 PM CDT Alan Davenport MD LAB - BLOOD BANK ORD ERABLES [facility] [address] [place] [address] documented in this encounter Visit Diagnoses Not on filedocumented in this encounter Care Teams Superintendent Tests Relationship Specialty Start Date End Date Jeff Strickland MD [address] [place] [address] PCP - General 03/05/18 [place] [address] [place] [address] Orthopedic Surgery 03/28/17 documented as of this encounter
--- OUTSIDE RECORDS SUMMARY | 2024-05-16 15:56 | XMS_ITS | CONTINUITY OF CARE DOCUMENT ---
Author Name sally azvala Address Unknown Organization [facility] Address [address] [facility] [address] [place] [address] Phone [phone] Care Team Providers Care Consulting Psychiatrist Name Role Phone Jason Becerra MD Unavailable [phone] DONNIE WOOD MD Unavailable DONNIE WOOD MD Unavailable [phone] PROBLEMS Condition Status Date Provider Notes [...] In-person encounter Office Visit Jason Becerra MD [facility] - In-person encounter Office Visit Jason Becerra MD [facility] Fatigue - In-person encounter Office Visit Jason Becerra MD [facility] Chest pain-type to be determined - In-person encounter Office Visit Jason Becerra MD [facility] Office - In-person encounter Office Visit Jason Becerra MD [facility] Cardiology examinationDiabetes, Type 2HyperlipidemiaHypertens ionDiastolic heart [...] LinkLogic 3.5-5.2 sodium, serum 141 mmol/L LinkLogic [id number]/09/26 urea nitrogen/creatini ne ratio, serum 19 LinkLogic [...] Statu s: Monica oropeza: 2 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 [id number] ADVANCE DIRECTIVES Name Date POWER OF SENIOR COMMUNICATIONS ENGINEER TREATMENT PLAN Date Name Performer Cardiology follow [...] BASIC METABOLIC PANE L W/EGFR DLCO - 68835 FRC - 01341 FVC - 58475 HISTORY OF PROCEDURES Procedure Date Procedure Name Provider Procedure Notes S tatus EKG Jason Becerra MD complete d Regadenoson, 4 units Jason Becerra MD completed Cardiolite, 2 units Jason Becerra MD completed SPECT Images Jason Becerra MD comple wendy Stress EKG Jason Becerra MD complete d FVC / MVV - 08841 Jason Becerra MD c ompleted BLOOD COUNT HEMOGLOBIN Jason Becerra MD completed FRC - 12479 Jason Becerra MD complet ed SpO2 w/o 6min walk/titration Jason Becerra MD completed DLCO - 74894 Jason nguyen DEMETRIS Becerra MD complete d
--- OUTSIDE RECORDS SUMMARY | 2024-05-16 15:56 | XMS_ITS | Encounter Summary ---
Author Organization [facility] Address [facility]3 [facility] [place] [address] Care Team Providers Care Health Informatics Specialist Name Role Phone Deandre Bojorquez MD Unavailable [phone] Jeff Strickland MD Primary Care Provider [phone] Encounter Details Date Type Department Care Team (Late st Contact Info) Description 04/10/2023 Lab Requisition [facility] MAIN LAB [address] [place] [phone] Alan Davenport MD [facility] OF [place]BD [place] [address] Social History Tobacco Use Types Packs/Day Years [...] Info) Description 06/16/2024 10:00 AM CDT Appointment [facility] NUCLEAR MEDICINE [address] [place] [address] Alan Davenport MD [address] DIV OF [facility] [place] [address] 06/16/2024 11:00 AM CDT Appointment [facility] NUCLEAR MEDICINE [address] [place] [address] Alan Davenport MD [address] DIV OF [facility] [place] [address] 06/16/2024 12:20 PM CDT Appointment [facility] CAT SCAN [facility] [place] [address] Alan Davenport MD [address] DIV OF [facility] [place] [address] 06/16/2024 1:00 PM CDT Appointment [facility] ECHO [address] [place] [address] Alan Davenport MD [address] DIV OF [facility] [place] [address] 06/16/2024 2:00 PM CDT Appointment [facility] US [address] [place] [address] Alan Davenport MD [address] DIV OF [facility] [place] [address] 06/16/2024 2:45 PM CDT Appointment [facility] DIAGNOSTIC RAD OP [address] [place] [address] Alan Davenport MD [address] [facility] OF [facility] [place] [address] 06/16/2024 2:50 PM CDT Appointment [facility] LAB OP DRAW STATION [address] [place] [address] Alan Davenport MD [address] S [facility] DIV OF [facility] [place] [address] 06/23/2024 1:00 PM CDT Clinical Support [facility] TRANSPLANT [address] [place] [address] 08/04/2024 11:30 AM CDT Appointment [facility] MRI [facility] [place] [address] Thomas Mendoza MD 1225 [facility] 2L [place] [address] 08/04/2024 1:30 PM CDT Office Visit [facility] Physician [facility] - Urology [address] [place] [phone] Thomas Mendoza MD [address] [place] [address] 2L [place] [address] documented as of this encounter Procedures Procedure Name Priority Date/Time Associated Diagnosis Comments HOLD HLA SPECIMEN Routine 04/02/2023 3:0 1 PM CONSTRUCTION WORKER documented in this encounter Results * HOLD HLA SPECIMEN (04/02/2023 3:01 PM CONSTRUCTION WORKER) Hold HLA Specimen 04/10/2023 4:01 PM CONSTRUCTION WORKER [facility] Comment:The Hold HLA specime n has been received into the lab and will be held for 5 years at 4 degrees. Blood BLOOD SPECIMEN / Unknown 04/02/2023 3:01 PM CONSTRUCTION WORKER 04/10/2023 3:01 PM CONSTRUCTION WORKER Alan Davenport MD LAB - BLOOD BANK ORD ERABLES [facility] [address] [place] [address], [facility] documented in this encounter Visit Diagnoses Not on filedocumented in this encounter Care Teams Health Informatics Specialist Relationship Specialty Start Date End Date Jeff Strickland MD [address] [place] [address] PCP - General 03/05/18 [place] [address] [place] [address] Orthopedic Surgery 03/28/17 documented as of this encounter
--- OUTSIDE RECORDS SUMMARY | 2024-05-16 15:56 | XMS_ITS | Encounter Summary ---
Author Organization [facility] Address [facility]3 [facility] [place] [address] Care Team Providers Care Chemistry Tutor Name Role Phone Deandre Bojorquez MD Unavailable [phone] Jeff Strickland MD Primary Care Provider [phone] Encounter Details Date Type Department Care Team (Late st Contact Info) Description 09/30/2023 Lab Requisition [facility] MAIN LAB [address] [place] [phone] Alan Davenport MD [facility]1 [facility] OF [place] [address] Social History Tobacco Use Types Packs/Day Years [...] Info) Description 06/16/2024 10:00 AM CDT Appointment [facility] NUCLEAR MEDICINE [address] [place] [phone] Alan Davenport MD [address] DIV OF [facility] [place] [address] 06/16/2024 11:00 AM CDT Appointment [facility] NUCLEAR MEDICINE [address] [place] [phone] Alan Davenport MD [address] DIV OF [facility] [place] [address] 06/16/2024 12:20 PM CDT Appointment [facility] CAT SCAN [facility]1 [place] [address] Alan Davenport MD [address] DIV OF [facility] [place] [address] 06/16/2024 1:00 PM CDT Appointment [facility] ECHO [address] [place] [address] Alan Davenport MD [address] DIV OF [facility] [place] [address] 06/16/2024 2:00 PM CDT Appointment [facility] US [address] [place] [address] Alan Davenport MD [address] DIV OF [facility] [place] [address] 06/16/2024 2:45 PM CDT Appointment [facility] DIAGNOSTIC RAD OP [address] [place] [address] Alan Davenport MD [address] [facility] [place] [address] 06/16/2024 2:50 PM CDT Appointment [facility] LAB OP DRAW STATION [address] [place] [address] Alan Davenport MD [address] DIV OF [facility] [place] [address] 06/23/2024 1:00 PM CDT Clinical Support [facility] TRANSPLANT [address] [place] [address] 08/04/2024 11:30 AM CDT Appointment [facility] MRI [facility]1 [place] [address] Thomas Mendoza MD 1225 [facility] 2L [place] [address] 08/04/2024 1:30 PM CDT Office Visit [facility] Physician [facility] - Urology [address] [place] [phone] Thomas Mendoza MD [facility]5 [facility] 2L [place] [address] documented as of this encounter Procedures Procedure Name Priority Date/Time Associated Diagnosis Comments HOLD HLA SPECIMEN Routine 09/24/2023 3:2 7 PM CDT documented in this encounter Results * HOLD HLA SPECIMEN (09/24/2023 3:27 PM CDT) Hold HLA Specimen 09/30/2023 4:[address] [facility] Comment:The Hold HLA specime n has been received into the lab and will be held for 5 years at 4 degrees. Blood BLOOD SPECIMEN / Unknown 09/24/2023 3:27 PM CDT 09/30/2023 3:27 PM CDT Alan Davenport MD LAB - BLOOD BANK ORD ERABLES [facility] [address] [place] [address] documented in this encounter Visit Diagnoses Not on filedocumented in this encounter Care Teams Chemistry Tutor Relationship Specialty Start Date End Date Jeff Strickland MD [address] [place] [address] PCP - General 03/05/18 [place] [address] [place] [address] Orthopedic Surgery 03/28/17 documented as of this encounter
--- OUTSIDE RECORDS SUMMARY | 2024-05-16 15:56 | XMS_ITS | Encounter Summary ---
Author Organization [facility] Address [facility]3 [facility] [place] [address] Care Team Providers Care Trapper Animal Name Role Phone Deandre Bojorquez MD Unavailable [phone] Jeff Strickland MD Primary Care Provider [phone] Encounter Details Date Type Department Care Team (Late st Contact Info) Description 03/12/2024 Lab Requisition [facility] MAIN LAB [address] [place] [phone] Alan Davenport MD [facility]1 [facility] OF [place] [address] Social History Tobacco Use Types Packs/Day Years [...] 10:00 AM CDT Appointment [facility] NUCLEAR MEDICINE [address] [place] [address] Alan Davenport MD [address] DIV OF [facility] [place] [address] 06/16/2024 11:00 AM CDT Appointment [facility] NUCLEAR MEDICINE [address] [place] [address] Alan Davenport MD [address] DIV OF [facility] [place] [address] 06/16/2024 12:20 PM CDT Appointment [facility] CAT SCAN [facility] [place] [address] Alan Davenport MD [address] DIV OF [facility] [place] [address] 06/16/2024 1:00 PM CDT Appointment [facility] ECHO [address] [place] [address] Alan Davenport MD [address] DIV OF [facility] [place] [address] 06/16/2024 2:00 PM CDT Appointment [facility] US [address] [place] [address] Alan Davenport MD [address] DIV OF [facility] [place] [address] 06/16/2024 2:45 PM CDT Appointment [facility] DIAGNOSTIC RAD OP [address] [place] [address] Alan Davenport MD [address] [facility] DIV OF [facility] [place] [address] 06/16/2024 2:50 PM CDT Appointment [facility] LAB OP DRAW STATION [address] [place] [address] Alan Davenport MD [address] [facility] DIV OF [facility] [place] [address] 06/23/2024 1:00 PM CDT Clinical Support [facility] TRANSPLANT [address] [place] [address] 08/04/2024 11:30 AM CDT Appointment [facility] MRI [address] [place] [address] Thomas Mendoza MD [address] [facility] 2L DIV [place] [address] 08/04/2024 1:30 PM CDT Office Visit [facility] Physician Group - Urology [address] [place] [phone] Thomas Mendoza MD [address] [place] [address] 2L [place] [address] documented as of this encounter Procedures Procedure Name Priority Date/Time Associated Diagnosis Comments HOLD HLA SPECIMEN Routine 03/05/2024 1:4 0 PM RISK CONTROL OFFICER documented in this encounter Results * HOLD HLA SPECIMEN (03/05/2024 1:40 PM RISK CONTROL OFFICER) Hold HLA Specimen 03/12/2024 3:00 PM RISK CONTROL OFFICER [facility] Comment:The Hold HLA specime n has been received into the lab and will be held for 5 years at 4 degrees. Blood BLOOD SPECIMEN / Unknown 03/05/2024 1:40 PM RISK CONTROL OFFICER 03/12/2024 1:40 PM RISK CONTROL OFFICER Alan Davenport MD LAB - BLOOD BANK ORD ERABLES [facility] [address] [place] [address], [facility] documented in this encounter Visit Diagnoses Not on filedocumented in this encounter Care Teams Trapper Animal Relationship Specialty Start Date End Date Jeff Strickland MD [address] [place] [address] PCP - General 03/05/18 [place] [address] [place] [address] Orthopedic Surgery 03/28/17 documented as of this encounter
== END 2024-05-16 15:43 | disposition left against medical advice (07) ==
PROVIDERS: PCP Family Medicine
DX: R53.1 Weakness (principal)
CPT/HCPCS: 99199

== ENCOUNTER 2024-06-30 00:04 | Day surgery (SDC) | payer MEDICARE, SELFPAY ==
[2024-06-17 15:39] VITALS: BMI 39.8
--- OUTSIDE RECORDS SUMMARY | 2024-06-30 00:07 | XMS_ITS | CONTINUITY OF CARE DOCUMENT ---
Author Name sally zavala Address Unknown Organization [facility] Address [address] [facility] [address] [place] [address] Phone [phone] Care Team Providers Care Fresh Foods Clerk Name Role Phone Jason Becerra MD Unavailable DONNIE WOOD MD Unavailable [phone] DONNIE WOOD MD Unavailable PROBLEMS Condition Status Date Provider Notes Cardiology examination active Jason Becerra MD Diabetes, Type 2 active ? Jason Becerra MD Hyperlipidemia active ? Jason Becerra MD Hypertension active ? Jason Becrera MD Diastolic heart failure active Jason cooney MD Edema active Jason Becerra MD Sleep apnea active Jason Becerra MD Chest pain-type to be determined active Micky Becerra MD Fatigue active Jason Becerra MD ENCOUNTERS Date Type Provider Location Encounter Diag nosis - In-person encounter Office Visit Jason Becerra MD [place] [facility] - In-person encounter Office Visit Jason Becerra MD [place] [facility] Fatigue - In-person encounter Office Visit Jason Becerra MD [place] [facility] Chest pain-type to be determined - In-person encounter Office Visit Jason Becerra MD [facility] Office - In-person encounter Office Visit Jason Becerra MD [place] [facility] Cardiology examinationDiabetes, Type 2HyperlipidemiaHypertens ionDiastolic heart [...] LinkLogic 3.5-5.2 sodium, serum 141 mmol/L LinkLogic 132-720 9086/09/26 urea nitrogen/creatini ne ratio, serum 19 LinkLogic [...] ORAL TABLET completed ONE TAB DAILY - Aym Montemayor #30, 30 days supply, Prescribed by [...] Statu s: 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 [id number] ADVANCE DIRECTIVES Name Date POWER OF INVENTORY CONTROL SUPERVISOR TREATMENT PLAN Date Name Performer Cardiology follow [...] BASIC METABOLIC PANE L W/EGFR DLCO - 35436 FRC - 87526 FVC - 37647 HISTORY OF PROCEDURES Procedure Date Procedure Name Provider Procedure Notes S tatus EKG Jason Becerra MD complete d Regadenoson, 4 units Jason Becerra MD completed Cardiolite, 2 units Jason Becerra MD completed SPECT Images Jason Becerra MD comple wendy Stress EKG Jason Becerra MD complete d FVC / MVV - 79056 Jason Becerra MD c ompleted BLOOD COUNT HEMOGLOBIN Jason Becerra MD completed FRC - 28585 Jason Becerra MD complet ed SpO2 w/o 6min walk/titration Jason Becerra MD completed DLCO - 51616 Jason nguyen DEMETRIS Becerra MD complete d
--- OUTSIDE RECORDS SUMMARY | 2024-06-30 00:07 | XMS_ITS | Clinical Summary ---
Author Organization [facility] Address [address] [place] [address] Phone Care Team Providers Care Operational Intelligence Analyst Name Role Phone Jeff Strickland MD Primary Care Provider [phone] Allergies No known active allergies Medications pantoprazole [...] tablet Take 112 mcg by mouth daily game protector. Active aspirin (ANGELLA) 325 mg tablet Take 325 mg by mouth daily. Active Vit C-Vit Y-Tpezlq-BdJu-L utein (PRESERVISION) 226 mg-200 unit -5 mg-0.8 [...] Date Acute pain of left shoulder 01/25/2019 Family History Medical History Relation Name Comments [...] Comments Blood Pressure 167/77 02/04/2019 9:16 AM HOT PATCHER Pulse 64 02/04/2019 9:16 AM HOT PATCHER Temperature 36.5 C (97.7 F) 02/04/2019 9:16 AM HOT PATCHER Respiratory Rate 16 02/04/2019 9:16 AM HOT PATCHER Oxygen Saturation 97% 02/04/2019 9:16 AM HOT PATCHER Inhaled Oxygen Concentration - - Weight 113.4 kg (250 lb) 02/04/2019 9:16 AM HOT PATCHER Height 175.3 cm (5' 9 ) 02/04/2019 9:16 AM HOT PATCHER Body Mass Index 36.92 02/04/2019 9:16 AM HOT PATCHER Plan of Treatment Health Maintenance Due Date [...] 04/20/2020, 03/20/2020 DIABETES HBA1C Q 6 MONTHS 10/24/20242024, 04/10/2024, 11/07/2023, Additional history exists DIABETES ANNUAL RETINAL EXAM 03/09/2025, 12/10/2023, 10/08/2023 DTAP/TDAP/TD VACCINES (3 - T d or Tdap) 04/10/2026 04/10/2016, 04/09/2016 Insurance [facility] BLUE ACCESS/TRUE BLUE PPO AETNA MEDICARE SUPPLEMENT PPO [facility] BLUE ACCESS/TRUE BLUE PPO Care Teams Operational Intelligence Analyst Relationship Specialty Start Date End Date Jeff Strickland MD [address] [place] [phone] PCP - General Family Practice 01/01/19
--- OUTSIDE RECORDS SUMMARY | 2024-06-30 00:07 | XMS_ITS | Encounter Summary ---
Author Organization [facility] Address [facility] [place] [address] Care Team Providers Care Transmission Design Engineer Name Role Phone Deandre Bojorquez MD Unavailable [phone] Jeff Strickland MD Primary Care Provider [phone] Encounter Details Date Type Department Care Team (Late st Contact Info) Description 04/10/2023 Lab Requisition [facility] MAIN LAB [address] [place] [phone] Alan Davenport MD [facility]1 [facility] [place] [address] Social History Tobacco Use Types Packs/Day Years Used Date Smoking Tobacco: Never Smokeless Tobacco: Never Alcohol Use Standard Drinks/Week Comments Not Currently 0 (1 standard drink = 0.6 oz pur e alcohol) socially in past Sex and Gender Information Value Date Recorded Sex Assigned at Male 07/02/2021 2:37 PM CDT Legal Sex Male 10:14 PM TELEMETRY TECH Gender Identity Male 07/02/2021 2:37 PM CDT Sexual Orientation Straight 07/02/2021 2: 37 PM CDT documented as of this encounter Functional Status * Is person deaf or have serious hearing difficulty? Answer Date of Assessment Author No 08/04/2020 12:15 PM CDT Monique Suárez RN * Is person blind or have serious difficulty seeing? Answer Date of Assessment Author No 08/04/2020 12:15 PM CDT Monique Suárez RN * Does person have serious difficulty walking/climbing stairs? Answer Date of Assessment Author No 08/04/2020 12:15 PM CDT Monique Suárez RN * Does person have difficulty dressing/bathing? Answer Date of Assessment Author No 08/04/2020 12:15 PM CDT Monique Suárez RN * Does person have difficulty doing errands alone? Answer Date of Assessment Author No 08/04/2020 12:15 PM CDT Monique Suárez RN documented as of this encounter Mental Status * Does person have difficulty concentrating/remembering/making decisions? Answer Entry Date Author No 08/04/2020 12:15 PM CDT Monique Suárez RN documented in this encounter Plan of Treatment Upcoming Encounters Date Type Department Care Team (Late st Contact Info) Description 07/14/2024 1:20 PM CDT Office Visit [facility] - Cardiology [address] [facility], [facility] [address] [place] [address] Maylin Cutler DO [address] [facility] [address] [place] [address] 08/04/2024 11:30 AM CDT Appointment [facility] MRI [address] [place] [phone] Thomas Mendoza MD [address] [facility] 2L [place] [phone] 08/04/2024 1:30 PM CDT Office Visit [facility] - Urology [address] [place] [address] Thomas Mendoza MD [address] [facility] 2L [place] [address] 09/13/2024 10:40 AM CDT Office Visit [facility] - Endocrinology [address] [facility], [place] [address] Niraj Turner MD [facility]5 [facility] 2L [place] [address] documented as of this encounter Procedures Procedure Name Priority Date/Time Associated Diagnosis Comments HOLD HLA SPECIMEN Routine 04/02/2023 3:0 1 PM TELEMETRY TECH documented in this encounter Results * HOLD HLA SPECIMEN (04/02/2023 3:01 PM TELEMETRY TECH) Hold HLA Specimen 04/10/2023 4:01 PM TELEMETRY TECH [facility] Comment:The Hold HLA specime n has been received into the lab and will be held for 5 years at 4 degrees. Blood BLOOD SPECIMEN / Unknown 04/02/2023 3:01 PM TELEMETRY TECH 04/10/2023 3:01 PM TELEMETRY TECH us Alan Davenport MD LAB - BLOOD BANK ORDERABLES F inal Result [facility] [address] [place] [address], [facility] documented in this encounter Visit Diagnoses Not on filedocumented in this encounter Care Teams Transmission Design Engineer Relationship Specialty Start Date End Date Jeff Strickland MD [address] [place] [address] PCP - General 03/05/18 [place] [address] [address] Orthopedic Surgery 03/28/17 documented as of this encounter
--- OUTSIDE RECORDS SUMMARY | 2024-06-30 00:07 | XMS_ITS | Encounter Summary ---
Author Organization [facility] Address [address] [place] [address] Care Team Providers Care Security Chief Museum Name Role Phone Deandre Bojorquez MD Unavailable Jeff Strickland MD Primary Care Provider [phone] Encounter Details Date Type Department Care Team (Late st Contact Info) Description 02/07/2023 Lab Requisition [facility] MAIN LAB [address] [place] [phone] Alan Davenport MD [facility]1 [facility] OF [place] [address] Social History Tobacco Use Types Packs/Day Years Used Date Smoking Tobacco: Never Smokeless Tobacco: Never Alcohol Use Standard Drinks/Week Comments Not Currently 0 (1 standard drink = 0.6 oz pur e alcohol) socially in past Sex and Gender Information Value Date Recorded Sex Assigned at Male 07/02/2021 2:37 PM CDT Legal Sex Male 10:14 PM CANDY WRAPPING MACHINE OPERATOR Gender Identity Male 07/02/2021 2:37 PM CDT [...] Author No 08/04/2020 12:15 PM CDT Monique Sáurez RN * Does person have difficulty dressing/bathing? [...] Description 07/14/2024 1:20 PM CDT Office Visit [facility] - Cardiology [address] [facility], [facility] [address] [place] [address] Maylin Cutler DO [address] [facility] [address] [place] [address] 08/04/2024 11:30 AM CDT Appointment [facility] MRI [address] [place] [address] Thomas Mendoza MD [address] [facility] 2L [place] [address] 08/04/2024 1:30 PM CDT Office Visit [facility] - Urology [address] [place] [address] Thomas Mendoza MD [address] [facility] 2L [place] [address] 09/13/2024 10:40 AM CDT Office Visit [facility] - Endocrinology [address] [facility], [place] [address] Niraj Turner MD [facility]5 [facility] 2L [place] [address] documented as of this encounter Procedures Procedure Name Priority Date/Time Associated Diagnosis Comments HOLD HLA SPECIMEN Routine 2023 7:5 8 AM CANDY WRAPPING MACHINE OPERATOR documented in this encounter Results * HOLD HLA SPECIMEN (2023 7:58 AM CANDY WRAPPING MACHINE OPERATOR) Hold HLA Specimen 02/07/2023 9:01 AM CANDY WRAPPING MACHINE OPERATOR [facility] Comment:The Hold HLA specime n has been received into the lab and will be held for 5 years at 4 degrees. Blood BLOOD SPECIMEN / Unknown 2023 7:58 AM CANDY WRAPPING MACHINE OPERATOR 02/07/2023 7:59 AM CANDY WRAPPING MACHINE OPERATOR us Alan Davenport MD LAB - BLOOD BANK ORDERABLES F inal Result [facility] [address] [place] [address], [facility] documented in this encounter Visit Diagnoses Not on filedocumented in this encounter Care Teams Security Chief Museum Relationship Specialty Start Date End Date Jeff Strickland MD [address] [place] [address] PCP - General 03/05/18 [place] [address] [address] Orthopedic Surgery 03/28/17 documented as of this encounter
--- OUTSIDE RECORDS SUMMARY | 2024-06-30 00:07 | XMS_ITS ---
Author Organization [facility] Address [address] [place] [address] [place] [address] Care Team Providers Care Binder Fixer Name Role Phone DONNIE WOOD MD Primary Care Provider Lance Sergio Trujillo Unavailable [phone] ALLERGIES No Known Allergies REASON FOR VISIT [...] Primary osteoarthritis, 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) Active confirmed VITAL SIGNS Blood pressure systolic 112 mm Hg 03/03/19 25 Blood pressure diastolic 62 mm Hg 025 Heart Rate 59 /min 03/03/2024 Respiratory Rate 18 /min 03/03/2024 Height 5 ft 9 in in 03/03/2024 Weight 229 lbs 03/03/2024 BMI 33.81 kg/m2 03/03/2024 Encounters Encounter Location Date Provider Diagnosis [facility] [address] [place] [address] 03/03/2024 Sergio Stynowick Pain in left knee M25.562 ; Primary osteoarthritis, unspecified shoulder M19.019 ; Other chest pain R07.89 ; Radiculopathy, lumbar region M54.16 ; Other intervertebral disc degeneration, lumbar region M51.36 ; 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 John's, [place]'s and Gaenslen's are positive bilaterally. There is [...] and Follow-up: Follow-up Plan documen wendy:: Yes [facility] Quality 2020: MIPS Documented:: Compliant
--- OUTSIDE RECORDS SUMMARY | 2024-06-30 00:07 | XMS_ITS | Encounter Summary ---
Author Organization [facility] Address [address] [place] [address] Phone Care Team Providers Care Phonograph Cartridge Assembler Name Role Phone Jeff Strickland MD Primary Care Provider Chan Nicholas MD Unavailable [phone] Alan Mccall MD Unavailable [phone] Lorna Lantigua MD Unavailable [phone] Juliette Savage RN Unavailable Pepito Haro MD PhD Unavailable Solange Guido MD Unavailable [phone] Letha Gil RN Unavailable Encounter Details Date Type Department Care Team (Late st Contact Info) Description 05/02/2021 Ophth Exam [facility]mology [address] [place] [address] 1st [place] [phone] Corina Ventura MD PhD [address] [facility] 6 [place] [address] Social History Tobacco Use Types [...] on file Legal Sex Male 2:23 AM REMOTE COMPUTER TERMINAL OPERATOR Gender Identity Not on file Sexual [...] COVID: Suspected 03/24/2023 03/24/2023 03/24/2023 5:45 PM REMOTE COMPUTER TERMINAL OPERATOR COVID19 03/24/2023 03/24/2023 04/08/2023 3:06 AM REMOTE COMPUTER TERMINAL OPERATOR COVID: Recovered Comment:Added based on recent COVID infection. 04/08/2023 04/10/2023 07/07/2023 3:06 AM C DT COVID: Suspected 04/10/2024 04/10/2024 04/11/2024 1:24 AM REMOTE COMPUTER TERMINAL OPERATOR C. difficile suspected 04/11/2024 04/11/202404/11 1:21 PM REMOTE COMPUTER TERMINAL OPERATOR documented as of this encounter Eye [...] arcade Normal Periphery Normal Normal Care Teams Phonograph Cartridge Assembler Relationship Specialty Start Date End Date Jeff Strickland MD [address] [address] PCP - General Family Medicine 04/02/18 Chan Nicholas MD [facility] [address] [address] Consulting Physician Gastroenterology 11/24/18 Alan Mccall MD [facility] [address] [address] Referring Physician Nephrology 11/24/18 Lorna Lantigua MD [facility] [address] [address] Consulting Physician Cardiology 11/24/18 07/22/23 Juliette Savage, RN [address] [place] [address] Nurse Navigator 06/04/21 03/14/22 Pepito Haro MD PhD [address] [place] [address] Consulting Physician Neurosurgery 12/03/22 Solange Guido MD [address] [facility] [address] [place] [address] Referring Physician Cardiovascular Disease 07/23/23 Letha Gil, RN [address] [facility] [address] [place] [address] SHOP Outpatient Laborer Adjustable Steel Joist 04/14/24 04/18/24 documented as of this encounter
--- OUTSIDE RECORDS SUMMARY | 2024-06-30 00:07 | XMS_ITS ---
Author Organization [facility] Address [address] [place] [address] [place] [address] Care Team Providers Care Asphalt Mixing Machine Operator Name Role Phone DONNIE WOOD MD Primary Care Provider Robba Sergio Trujillo Unavailable [phone] REASON FOR VISIT BILAT SHOULDER JOINT INJECTION (NEED XRAY - BEING DONE AT [facility]) MEDICATIONS Medication SIG (Take, Route, Frequency, Duration) [...] KwikPen 100 UNIT/ML as directed Subcutaneous Act sylive Fenofibrate 145 MG 1 tablet Orally Once [...] Date Provider Diagnosis [facility] [address] [place] [address] 03/08/2024 Sergio Rivera Primary osteoarthritis, unspecified shoulder [...] discharged home in good condition with a train driver. X-ray time: 6 seconds Progress Notes [...] typical axial low back pain. John's, [place]'s and Gaenslen's are positive bilaterally. There is [...] Plan documen wendy:: Yes MIPS Quality 2020: [facility] Documented:: Compliant
--- OUTSIDE RECORDS SUMMARY | 2024-06-30 00:08 | XMS_ITS | Encounter Summary ---
Author Organization [facility] Address [facility] [place] [address] Care Team Providers Care Donor Technician Name Role Phone Deandre Bojorquez MD Unavailable [phone] Jeff Strickland MD Primary Care Provider [phone] Encounter Details Date Type Department Care Team (Late st Contact Info) Description 03/30/2024 Lab Requisition [facility] MAIN LAB [address] [place] [address] Alan Davenport MD [facility]1 [facility] [place] [address] Social History Tobacco Use Types Packs/Day Years Used Date Smoking Tobacco: Never Smokeless Tobacco: Never Alcohol Use Standard Drinks/Week Comments Not Currently 0 (1 standard drink = 0.6 oz pur e alcohol) socially in past Sex and Gender Information Value Date Recorded Sex Assigned at Male 07/02/2021 2:37 PM CDT Legal Sex Male 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 Gender Identity Male 07/02/2021 2:37 PM CDT [...] Description 07/14/2024 1:20 PM CDT Office Visit [facility] - Cardiology [address] [facility], [facility] [address] [place] [address] Maylin Cutler DO [address] [facility] [address] [place] [address] 08/04/2024 11:30 AM CDT Appointment [facility] MRI [address] [place] [phone] Thomas Mendoza MD [address] [facility] 2L [place] [address] 08/04/2024 1:30 PM CDT Office Visit [facility] - Urology [address] [place] [address] Thomas Mendoza MD [address] [facility] 2L [place] [address] 09/13/2024 10:40 AM CDT Office Visit [facility] - Endocrinology [address] [place] [address], [place] [address] Niraj Turner MD [address] [place] [address] 2L [place] [address] documented as of this encounter Procedures Procedure Name Priority Date/Time Associated Diagnosis Comments HOLD HLA SPECIMEN Routine 03/25/2024 2:5 1 PM FILM DEVELOPER documented in this encounter Results * HOLD HLA SPECIMEN (03/25/2024 2:51 PM FILM DEVELOPER) Hold HLA Specimen 03/30/2024 4:01 PM FILM DEVELOPER [facility] Comment:The Hold HLA specime n has been received into the lab and will be held for 5 years at 4 degrees. Blood BLOOD SPECIMEN / Unknown 03/25/2024 2:51 PM FILM DEVELOPER 03/30/2024 2:51 PM FILM DEVELOPER us Alan Davenport MD LAB - BLOOD BANK ORDERABLES F inal Result [facility] [address] [place] [address], [facility] documented in this encounter Visit Diagnoses Not on filedocumented in this encounter Care Teams Donor Technician Relationship Specialty Start Date End Date Jeff Strickland MD [address] [place] [address] PCP - General 03/05/18 [place] [address] [address] Orthopedic Surgery 03/28/17 documented as of this encounter
--- OUTSIDE RECORDS SUMMARY | 2024-06-30 00:08 | XMS_ITS | Encounter Summary ---
Author Organization [facility] Address [facility]3 [place] [address] Care Team Providers Care Revenue Stamper Name Role Phone Deandre Bojorquez MD Unavailable [phone] Jeff Strickland MD Primary Care Provider [phone] Encounter Details Date Type Department Care Team (Late st Contact Info) Description 11/21/2023 Lab Requisition [facility] MAIN LAB [address] [place] [phone] Alan Davenport MD 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 Gender Identity Male 07/02/2021 2:37 PM CDT [...] Description 07/14/2024 1:20 PM CDT Office Visit [facility] - Cardiology [address] [facility], [facility] [address] [place] [address] Maylin Cutler DO [address] [facility] [address] [place] [address] 08/04/2024 11:30 AM CDT Appointment [facility] MRI [address] [place] [phone] Thomas Mendoza MD 1225 [facility] 2L [place] [address] 08/04/2024 1:30 PM CDT Office Visit [facility] - Urology [address] [place] [address] Thomas Mendoza MD [address] [facility] 2L DIV [place] [address] 09/13/2024 10:40 AM CDT Office Visit [facility] - Endocrinology [address] [facility], [place] [address] Niraj Turner MD [facility]5 [facility] 2L [place] [address] documented as of this encounter Procedures Procedure Name Priority Date/Time Associated Diagnosis Comments HOLD HLA SPECIMEN Routine 11/18/2023 12: 16 PM CDT documented in this encounter Results * HOLD HLA SPECIMEN (11/18/2023 12:16 PM CDT) Hold HLA Specimen 11/21/2023 1:31 PM CDT [facility] ([facility] Comment:The Hold HLA specime n has been received into the lab and will be held for 5 years at 4 degrees. Blood BLOOD SPECIMEN / Unknown 11/18/2023 12:16 PM CDT 11/21/2023 12:17 PM CDT us Alan Davenport MD LAB - BLOOD BANK ORDERABLES F inal Result [facility] ([facility]TH) [address] [place] [address], [facility] documented in this encounter Visit Diagnoses Not on filedocumented in this encounter Care Teams Revenue Stamper Relationship Specialty Start Date End Date Jeff Strickland MD [address] [place] [address] PCP - General 03/05/18 [place] [address] [facility] 100 [place] [address] Orthopedic Surgery 03/28/17 documented as of this encounter
--- OUTSIDE RECORDS SUMMARY | 2024-06-30 00:08 | XMS_ITS | Encounter Summary ---
Author Organization [facility] Address [address] [place] [address] Care Team Providers Care Technical Solutions Director Name Role Phone Deandre Bojorquez MD Unavailable [phone] Jeff Strickland MD Primary Care Provider [phone] Encounter Details Date Type Department Care Team (Late st Contact Info) Description 06/25/2024 Lab Requisition [facility] MAIN LAB [address] [place] [phone] Alan Davenport MD [facility] OF [place] [address] Social History Tobacco Use Types Packs/Day Years Used Date Smoking Tobacco: Never Smokeless Tobacco: Never Alcohol Use Standard Drinks/Week Comments Not Currently 0 (1 standard drink = 0.6 oz pur e alcohol) socially in past Sex and Gender Information Value Date Recorded Sex Assigned at Male 07/02/2021 2:37 PM CDT Legal Sex Male 10:14 PM WEB DATABASE DEVELOPER Gender Identity Male 07/02/2021 2:37 PM [...] Description 07/14/2024 1:20 PM CDT Office Visit [facility]ician Group - Cardiology [address] [facility], [facility] 1[address] [place] [address] Maylin Cutler DO [address] [facility] [address] [place] [address] 08/04/2024 11:30 AM CDT Appointment [facility] MRI [address] [place] [phone] Thomas Mendoza MD 1225 [facility] 2L [place] [address] 08/04/2024 1:30 PM CDT Office Visit [facility] - Urology [address] [place] [address] Thomas Mendoza MD 1225 [facility] 2L [place] [address] 09/13/2024 10:40 AM CDT Office Visit [facility] - Endocrinology [address] [place] [address], [place] [address] Niraj Turner MD [address] [place] [address] 2L [place] [address] documented as of this encounter Procedures Procedure Name Priority Date/Time Associated Diagnosis Comments HOLD HLA SPECIMEN Routine 06/22/2024 11: 05 AM CDT documented in this encounter Results * HOLD HLA SPECIMEN (06/22/2024 11:05 AM CDT) Hold HLA Specimen 06/25/2024 12:32 PM CDT [facility] ([facility] Comment:The Hold HLA specime n has been received into the lab and will be held for 5 years at 4 degrees. Blood BLOOD SPECIMEN / Unknown 06/22/2024 11:05 AM CDT 06/25/2024 11:05 AM CDT Alan Davenport MD LAB - BLOOD BANK ORDERABLES F inal Result [facility] (NOR[facility]) [address] [place] [address], [facility] documented in this encounter Visit Diagnoses Not on filedocumented in this encounter Care Teams Technical Solutions Director Relationship Specialty Start Date End Date Jeff Strickland MD [address] [place] [address] PCP - General 03/05/18 [place] [address] [address] [facility] 100 [place] [address] Orthopedic Surgery 03/28/17 documented as of this encounter
--- OUTSIDE RECORDS SUMMARY | 2024-06-30 00:08 | XMS_ITS | Encounter Summary ---
Author Organization [facility] Address [facility]3 [place] [address] Care Team Providers Care Blade Grader Operator Name Role Phone Deandre Bojorquez MD Unavailable [phone] Jeff Strickland MD Primary Care Provider [phone] Encounter Details Date Type Department Care Team (Late st Contact Info) Description 09/30/2023 Lab Requisition [facility] MAIN LAB [address] [place] [address] Alan Davenport MD [facility]1 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 1[address] [place] [address] Maylin Cutler DO [address] [facility] [address] [place] [address] 08/04/2024 11:30 AM CDT Appointment [facility] MRI [address] [place] [phone] Thomas Mendoza MD 1225 [facility] 2L [place] [address] 08/04/2024 1:30 PM CDT Office Visit [facility] - Urology [address] [place] [address] Thomas Mendoza MD [address] [facility] 2L [place] [address] 09/13/2024 10:40 AM CDT Office Visit [facility] - Endocrinology 1225 [facility], [place] [address] Niraj Turner MD [facility]5 [facility] 2L [place] [address] documented as of this encounter Procedures Procedure Name Priority Date/Time Associated Diagnosis Comments HOLD HLA SPECIMEN Routine 09/24/2023 3:2 7 PM CDT documented in this encounter Results * HOLD HLA SPECIMEN (09/24/2023 3:27 PM CDT) Hold HLA Specimen 09/30/2023 4:32 PM CDT [facility] Comment:The Hold HLA specime n has been received into the lab and will be held for 5 years at 4 degrees. Blood BLOOD SPECIMEN / Unknown 09/24/2023 3:27 PM CDT 09/30/2023 3:27 PM CDT Alan Davenport MD LAB - BLOOD BANK ORDERABLES F inal Result [facility] [address] [place] [address], [facility] documented in this encounter Visit Diagnoses Not on filedocumented in this encounter Care Teams Blade Grader Operator Relationship Specialty Start Date End Date Jeff Strickland MD [address] [place] [address] PCP - General 03/05/18 [place] [address] [address] Orthopedic Surgery 03/28/17 documented as of this encounter
--- OUTSIDE RECORDS SUMMARY | 2024-06-30 00:08 | XMS_ITS ---
Author Organization [facility] Address [address] [facility] [place] [address] Care Team Providers Care Lumber Bearer Name Role Phone DONNIE WOOD MD Primary Care Provider Unavaila Sergio Trujillo Unavailable [phone] Encounters Encounter Location Date Provider Diagnosis [facility] [address] [facility] [place] [address] [place] [address] 03/31/2024 Sergio Rivera PLAN OF TREATMENT No Information
--- OUTSIDE RECORDS SUMMARY | 2024-06-30 00:08 | XMS_ITS | Encounter Summary ---
Author Organization [facility] Address [address] [place] [address] Care Team Providers Care Manager Account Management Name Role Phone Deandre Bojorquez MD Unavailable [phone] Jeff Strickland MD Primary Care Provider [phone] Encounter Details Date Type Department Care Team (Late st Contact Info) Description 06/17/2024 Results Follow-Up [facility] TRANSPLANT [address] [place] [phone] Savanna Edwards RN Social History Tobacco Use Types Packs/Day Years Used Date Smoking Tobacco: Never Smokeless Tobacco: Never Alcohol Use Standard Drinks/Week Comments Not Currently 0 (1 standard drink = 0.6 oz pur e alcohol) socially in past Sex and Gender Information Value Date Recorded Sex Assigned at Male 07/02/2021 2:37 PM CDT Legal Sex Male 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 FACT 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 Gender Identity Male 07/02/2021 2:37 PM CDT [...] Description 07/14/2024 1:20 PM CDT Office Visit [facility] - Cardiology [address] [facility] [address] [place] [address] Maylin uCtler DO [address] [facility] [address] [place] [address] 08/04/2024 11:30 AM CDT Appointment [facility] MRI [address] [place] [phone] Thomas Mendoza MD [address] [place] [address] 2L [place] [address] 08/04/2024 1:30 PM CDT Office Visit [facility] - Urology [address] [place] [address] Thomas Mendoza MD [address] [place] [address] 2L [place] [address] 09/13/2024 10:40 AM CDT Office Visit [facility] - Endocrinology [address] [place] [address], [place] [address] Niraj Turner MD [address] [facility] 2L [place] [address] documented as of this encounter Visit Diagnoses Not on filedocumented in this encounter Care Teams Manager Account Management Relationship Specialty Start Date End Date Jeff Strickland MD [address] [place] [address] PCP - General 03/05/18 [place] [address] [place] [address] Orthopedic Surgery 03/28/17 documented as of this encounter
--- OUTSIDE RECORDS SUMMARY | 2024-06-30 00:08 | XMS_ITS | Encounter Summary ---
Author Organization [facility] Address [address] [place] [address] Care Team Providers Care Traffic Assistant Name Role Phone Deandre Bojorquez MD Unavailable [phone] Jeff Strickland MD Primary Care Provider [phone] Encounter Details Date Type Department Care Team (Late st Contact Info) Description 02/04/2024 Lab Requisition [facility] MAIN LAB [address] [place] [address] Alan Davenport MD [facility]1 [facility] OF [place] [address] Social History Tobacco Use Types Packs/Day Years Used Date Smoking Tobacco: Never Smokeless Tobacco: Never Alcohol Use Standard Drinks/Week Comments Not Currently 0 (1 standard drink = 0.6 oz pur e alcohol) socially in past Sex and Gender Information Value Date Recorded Sex Assigned at Male 07/02/2021 2:37 PM CDT Legal Sex Male 10:14 PM MANAGER 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ician Group - Cardiology [address] [facility], [facility] [address] [place] [address] Maylin Cutler DO [address] [facility] [address] [place] [address] 08/04/2024 11:30 AM CDT Appointment [facility] MRI [address] [place] [address] Thomas Mendoza MD 1225 [facility] 2L [place] [address] 08/04/2024 1:30 PM CDT Office Visit [facility] Physician Group - Urology [address] [place] [address] Thomas Mendoza MD 1225 [facility] 2L [place] [address] 09/13/2024 10:40 AM CDT Office Visit [facility] Physician Group - Endocrinology 1225 [facility], [place] [address] Niraj Turner MD [facility]5 [facility] 2L [place] [address] documented as of this encounter Procedures Procedure Name Priority Date/Time Associated Diagnosis Comments HOLD HLA SPECIMEN Routine 01/27/2024 3:2 3 PM MANAGER EMERGENCY documented in this encounter Results * HOLD HLA SPECIMEN (01/27/2024 3:23 PM MANAGER EMERGENCY) Hold HLA Specimen 02/04/2024 4:31 PM MANAGER EMERGENCY [facility] Comment:The Hold HLA specime n has been received into the lab and will be held for 5 years at 4 degrees. Blood BLOOD SPECIMEN / Unknown 01/27/2024 3:23 PM MANAGER EMERGENCY 02/04/2024 3:23 PM MANAGER EMERGENCY us Alan Davenport MD LAB - BLOOD BANK ORDERABLES F inal Result [facility] ([facility] [address] [place] [address], [facility] documented in this encounter Visit Diagnoses Not on filedocumented in this encounter Care Teams Traffic Assistant Relationship Specialty Start Date End Date Jeff Strickland MD [address] [place] [address] PCP - General 03/05/18 [place] [address] [address] Orthopedic Surgery 03/28/17 documented as of this encounter
--- OUTSIDE RECORDS SUMMARY | 2024-06-30 00:08 | XMS_ITS | Encounter Summary ---
Author Organization [facility] Address [address] [place] [address] Care Team Providers Care Salesperson Surgical Appliances Name Role Phone Deandre Bojorquez MD Unavailable [phone] Jeff Strickland MD Primary Care Provider [phone] Encounter Details Date Type Department Care Team (Late st Contact Info) Description 03/12/2024 Lab Requisition [facility] MAIN LAB [address] [place] [phone] Alan Davenport MD [facility] 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 [address] [place] [address] 08/04/2024 11:30 AM CDT Appointment [facility] MRI [address] [place] [address] Thomas Mendoza MD [address] [facility] 2L [place] [address] 08/04/2024 1:30 PM CDT Office Visit [facility] Physician Group - Urology [address] [place] [address] Thomas Mendoza MD [address] [facility] 2L [place] [address] 09/13/2024 10:40 AM CDT Office Visit [facility] Physician Group - Endocrinology 1225 [facility], [place] [address] Niraj Turner MD [address] [place] [address] 2L [place] [address] documented as of this encounter Procedures Procedure Name Priority Date/Time Associated Diagnosis Comments HOLD HLA SPECIMEN Routine 03/05/2024 1:4 0 PM OFFICE TECHNOLOGY INSTRUCTOR documented in this encounter Results * HOLD HLA SPECIMEN (03/05/2024 1:40 PM OFFICE TECHNOLOGY INSTRUCTOR) Hold HLA Specimen 03/12/2024 3:00 PM OFFICE TECHNOLOGY INSTRUCTOR [facility] Comment:The Hold HLA specime n has been received into the lab and will be held for 5 years at 4 degrees. Blood BLOOD SPECIMEN / Unknown 03/05/2024 1:40 PM OFFICE TECHNOLOGY INSTRUCTOR 03/12/2024 1:40 PM OFFICE TECHNOLOGY INSTRUCTOR us Alan Davenport MD LAB - BLOOD BANK ORDERABLES F inal Result [facility] ([facility] [address] [place] [address], [facility] documented in this encounter Visit Diagnoses Not on filedocumented in this encounter Care Teams Salesperson Surgical Appliances Relationship Specialty Start Date End Date Jeff Strickland MD [address] [place] [address] PCP - General 03/05/18 [place] [address] [address] Orthopedic Surgery 03/28/17 documented as of this encounter
--- OUTSIDE RECORDS SUMMARY | 2024-06-30 00:08 | XMS_ITS | Encounter Summary ---
Author Organization [facility] Address [facility] [place] [address] Care Team Providers Care Carving Machine Operator Name Role Phone Deandre Bojorquez MD Unavailable Jeff Strickland MD Primary Care Provider [phone] Encounter Details Date Type Department Care Team (Late st Contact Info) Description 07/31/2023 Lab Requisition [facility] MAIN LAB [address] [place] [phone] Alan Davenport MD [facility]1 [facility] OF ABD [place] [address] Social History Tobacco Use Types Packs/Day Years Used Date Smoking Tobacco: Never Smokeless Tobacco: Never Alcohol Use Standard Drinks/Week Comments Not Currently 0 (1 standard drink = 0.6 oz pur e alcohol) socially in past Sex and Gender Information Value Date Recorded Sex Assigned at Male 07/02/2021 2:37 PM CDT 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 Gender Identity Male 07/02/2021 2:37 PM CDT [...] Description 07/14/2024 1:20 PM CDT Office Visit [facility] Physician Group - Cardiology [address] [facility], [facility] [address] [place] [address] Maylin Cutler DO [address] [facility] [address] [place] [address] 08/04/2024 11:30 AM CDT Appointment [facility] MRI [address] [place] [phone] Thomas Mendoza MD 1225 [facility] 2L DIV [place] [address] 08/04/2024 1:30 PM CDT Office Visit [facility] Physician Group - Urology [address] [place] [address] Thomas Mendoza MD 1225 [facility] 2L DIV [place]OLOGIC [place] [address] 09/13/2024 10:40 AM CDT Office Visit [facility] Physician Group - Endocrinology 1225 [facility], [place] [address] Niraj Turner MD [facility]5 [facility] 2L [place] [address] documented as of this encounter Procedures Procedure Name Priority Date/Time Associated Diagnosis Comments HOLD HLA SPECIMEN Routine 07/23/2023 2:0 5 PM CDT documented in this encounter Results * HOLD HLA SPECIMEN (07/23/2023 2:05 PM CDT) Hold HLA Specimen 07/31/2023 3:32 PM CDT [facility] Comment:The Hold HLA specime n has been received into the lab and will be held for 5 years at 4 degrees. Blood BLOOD SPECIMEN / Unknown 07/23/2023 2:05 PM CDT 07/31/2023 2:06 PM CDT Alan Davenport MD LAB - BLOOD BANK ORDERABLES F inal Result [facility] ([facility] [address] [place] [address], [facility] documented in this encounter Visit Diagnoses Not on filedocumented in this encounter Care Teams Carving Machine Operator Relationship Specialty Start Date End Date Jeff Strickland MD [address] [place] [address] PCP - General 03/05/18 [place] [address] [address] Orthopedic Surgery 03/28/17 documented as of this encounter
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
--- OUTSIDE RECORDS SUMMARY | 2024-06-30 00:08 | XMS_ITS | Patient Health Record ---
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 confirmed Lesion of left femoral nerve (disorder) (259099041057616) Problem Chronic pain syndrome (G89.4) Active confirmed Chronic joan n syndrome (361937237) Problem Primary osteoarthritis, 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) Active confirmed Localized, primary osteoarthritis of the shoulder region (789306633) Problem Pain in left hip (M25.552) Active confirmed Pain of left hi p joint (finding) (551900714094753) Problem Spondylosis without myelopathy or radiculopathy, lumbar region (M47.816) Active confirmed Lumbosacral spondylosis without myelopathy (72969139) Problem Other intervertebral disc degeneration, lumbar region (M51.36) Active confirmed Degeneration of lumbar intervertebral disc (48895168) Problem Radiculopathy, lumbar region (M54.16) Active confirmed Lumbar radiculopathy (092295433) Problem Radiculopathy, lumbosacral region (M54.17) Active confirmed Lumbosacral radiculopathy (8506547) Problem Osseous stenosis of neural canal of lumbar region (M99.33) Active confirmed Spinal stenosis of lumbar region (36164827) 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.01) Active confirmed Long-term curre nt use of anticoagulant (086418284) Problem Other intervertebral disc degeneration, lumbar region [...] Date Provider Diagnosis [facility] [address] [place] [address] 09/29/2023 Sergio Stynowick Radiculopathy, lumba r region M54.16 ; Other chest pain R07.89 ; Other intervertebral disc degeneration, lumbar region M51.36 ; 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 ; Spondylosis without myelopathy or radiculopathy, lumbar region M47.816 and jail (current) use of anticoagulants Z79.01 [facility] [address] [place] [address] 01/12/2024 Sergio Stynowick Radiculopathy, lumba r region M54.16 ; Radiculopathy, lumbosacral region M54.17 ; Other chest pain R07.89 ; Other intervertebral disc degeneration, lumbar region M51.36 ; 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 ; Spondylosis without myelopathy or radiculopathy, lumbar region M47.816 and jail (current) use of anticoagulants Z79.01 [facility] [address] [place] [address] 01/19/2024 Sergio Stynowick Radiculopathy, lumba r region M54.16 ; Other intervertebral disc degeneration, lumbar region with discogenic back pain and lower extremity pain M51.362 and 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 [facility] [address] [place] [address] 02/03/2024 Sergio Stynowick Other chest pain R07.89 ; Pain in left knee M25.562 ; Radiculopathy, lumbar region M54.16 ; Other intervertebral disc degeneration, lumbar region M51.36 ; 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 ; Spondylosis without myelopathy or radiculopathy, lumbar region M47.816 and 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 of anticoagulants Z79.01 [facility] [address] [place] [address] 03/03/2024 Sergio Stradha Pain in left knee M25.562 ; Primary osteoarthritis, unspecified shoulder M19.019 ; Other chest pain R07.89 ; Radiculopathy, lumbar region M54.16 ; Other intervertebral disc degeneration, lumbar region M51.36 ; 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 ; Spondylosis without myelopathy or radiculopathy, lumbar region M47.816 ; jail (current) use of anticoagulants Z79.01 ; Pain in right shoulder M25.511 and Pain in left shoulder M25.512 [facility] [address] [place] [address] 03/08/2024 Sergio Schmitzick Primary osteoarthritis, unspecified shoulder M19.019 [facility] [address] [place] [address] 03/31/2024 Sergio Rivera ASSESSMENTS Encounter Date Diagnosis Assessment Notes Treatment [...] radiculopathy, lumbar region (ICD-10 - M47.816) 09/29/2023 jail (current) use of anticoagulants (ICD-10 - Z79.01) 01/12/2024 Spondylosis without myelopathy or radiculopathy, lumbar region (ICD-10 - M47.816) 02/03/2024 Spondylosis without myelopathy or radiculopathy, lumbar region (ICD-10 - M47.816) 03/03/2024 Osseous stenosis of neural canal of lumbar region (ICD-10 - M99.33) 01/12/2024 jail (current) use of anticoagulants (ICD-10 - Z79.01) The patient was instructed to discontinue aspirin for 6 days prior to the procedure. I made the patient aware that he will be at an increased risk for a thromboembolic event during this time and he is willing to accept this risk. The patient was instructed to notify his primary care physician and/or software engineer backend to obtain clearance prior to discontinuing this medication. 02/03/2024 jail (current) use of anticoagulants (ICD-10 - Z79.01) 03/03/2024 Spondylosis without myelopathy or radiculopathy, lumbar region (ICD-10 - M47.816) 03/03/2024 jail (current) use of anticoagulants (ICD-10 - Z79.01) [...] Coverage End Date [employer] MEDICARE [address] [place] [address] [id number] GRACE INTERIANO Self - patient is the insured MEDICAL (GENERAL) HISTORY Medical History History ICD Code Hypertension Hypothyroidism Diabetes type 2 Gastroesophageal reflux disease (GERD) Renal cell cancer Chronic kidney disease stage 4 Sleep apnea CHF Surgical History Surgery Date(Month/Year) Right total knee arthroplasty 08/2015 Cholecystectomy Hernia repair 2019 Cardiac stent 07/2020
--- OUTSIDE RECORDS SUMMARY | 2024-06-30 00:08 | XMS_ITS | Encounter Summary ---
Author Organization [facility] Address [address] [place] [address] Care Team Providers Care President [employer] Name Role Phone Deandre Bojorquez MD Unavailable [phone] Jeff Strickland MD Primary Care Provider [phone] Encounter Details Date Type Department Care Team (Late st Contact Info) Description 10/28/2023 Lab Requisition [facility] MAIN LAB [address] [place] [phone] Alan Davenport MD [facility]1 [facility] [place] [address] Social History Tobacco Use Types Packs/Day Years Used Date Smoking Tobacco: Never Smokeless Tobacco: Never Alcohol Use Standard Drinks/Week Comments Not Currently 0 (1 standard drink = 0.6 oz pur e alcohol) socially in past Sex and Gender Information Value Date Recorded Sex Assigned at Male 07/02/2021 2:37 PM CDT 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 Gender Identity Male 07/02/2021 2:37 PM CDT [...] Description 07/14/2024 1:20 PM CDT Office Visit [facility] - Cardiology [address] [facility], [facility] [address] [place] [address] Maylin Cutler DO [address] [facility] [address] [place] [address] 08/04/2024 11:30 AM CDT Appointment [facility] MRI [address] [place] [phone] Thomas Mendoza MD [address] [facility] 2L [place] [address] 08/04/2024 1:30 PM CDT Office Visit [facility] - Urology [address] [place] [address] Thomas Mendoza MD [address] [facility] 2L [place] [address] 09/13/2024 10:40 AM CDT Office Visit [facility] - Endocrinology [address] [facility], [place] [address] Niraj Turner MD [facility]5 [facility] 2L [place] [address] documented as of this encounter Procedures Procedure Name Priority Date/Time Associated Diagnosis Comments HOLD HLA SPECIMEN Routine 10/22/2023 3:5 0 PM CDT documented in this encounter Results * HOLD HLA SPECIMEN (10/22/2023 3:50 PM CDT) Hold HLA Specimen 10/28/2023 5:00 PM CDT [facility] ([facility]) Comment:The Hold HLA specime n has been received into the lab and will be held for 5 years at 4 degrees. Blood BLOOD SPECIMEN / Unknown 10/22/2023 3:50 PM CDT 10/28/2023 3:50 PM CDT Alan Davenport MD LAB - BLOOD BANK ORDERABLES F inal Result [facility] ([facility]) [address] [place] [address], [facility] documented in this encounter Visit Diagnoses Not on filedocumented in this encounter Care Teams President [employer] Electronics [employer] Relationship Specialty Start Date End Date Jeff Strickland MD [address] [place] [address] PCP - General 03/05/18 [place] [address] [address] Orthopedic Surgery 03/28/17 documented as of this encounter
--- OUTSIDE RECORDS SUMMARY | 2024-06-30 00:08 | XMS_ITS | Encounter Summary ---
Author Organization [facility] Address [facility] [place] [address] Care Team Providers Care Renal Nurse Name Role Phone Deandre Bojorquez MD Unavailable [phone] Jeff Strickland MD Primary Care Provider [phone] Encounter Details Date Type Department Care Team (Late st Contact Info) Description 05/29/2023 Lab Requisition [facility] MAIN LAB [address] [place] [phone] Alan Davenport MD [facility] [place] [address] Social History Tobacco Use Types Packs/Day Years Used Date Smoking Tobacco: Never Smokeless Tobacco: Never Alcohol Use Standard Drinks/Week Comments Not Currently 0 (1 standard drink = 0.6 oz pur e alcohol) socially in past Sex and Gender Information Value Date Recorded Sex Assigned at Male 07/02/2021 2:37 PM CDT 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 Sex Male 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 Gender Identity Male 07/02/2021 2:37 PM CDT [...] 07/14/2024 1:20 PM CDT Office Visit [facility] - Cardiology [address] [facility], [facility] [address] [place] [address] Maylin Cutler DO [address] [facility] [address] [place] [address] 08/04/2024 11:30 AM CDT Appointment [facility] MRI [address] [place] [phone] Thomas Mendoza MD [address] [facility] 2L [place] [address] 08/04/2024 1:30 PM CDT Office Visit [facility] - Urology [address] [place] [address] Thomas Mendoza MD [address] [facility] 2L [place] [address] 09/13/2024 10:40 AM CDT Office Visit [facility] - Endocrinology [address] [facility], [place] [address] Niraj Turner MD [facility]5 [facility] 2L [place] [address] documented as of this encounter Procedures Procedure Name Priority Date/Time Associated Diagnosis Comments HOLD HLA SPECIMEN Routine 05/21/2023 9:2 4 AM CDT documented in this encounter Results * HOLD HLA SPECIMEN (05/21/2023 9:24 AM CDT) Hold HLA Specimen 05/29/2023 10:30 AM CDT [facility] Comment:The Hold HLA specime n has been received into the lab and will be held for 5 years at 4 degrees. Blood BLOOD SPECIMEN / Unknown 05/21/2023 9:24 AM CDT 05/29/2023 9:24 AM CDT Alan Davenport MD LAB - BLOOD BANK ORDERABLES F inal Result [facility] ([facility]) [address] [place] [address], [facility] documented in this encounter Visit Diagnoses Not on filedocumented in this encounter Care Teams Renal Nurse Relationship Specialty Start Date End Date Jeff Strickland MD [address] [place] [address] PCP - General 03/05/18 [place] [address] [address] Orthopedic Surgery 03/28/17 documented as of this encounter
--- OUTSIDE RECORDS SUMMARY | 2024-06-30 00:08 | XMS_ITS | Encounter Summary ---
Author Organization [facility] [place] [facility] Address [facility] [place] [address] Care Team Providers Care Mds Rn Name Role Phone Deandre Bojorquez MD Unavailable [phone] Jeff Strickland MD Primary Care Provider [phone] Encounter Details Date Type Department Care Team (Late st Contact Info) Description 04/29/2024 Lab Requisition [facility] MAIN LAB [address] [place] [phone] Alan Davenport MD [facility]1 [facility] [place] [address] Social History Tobacco Use Types Packs/Day Years Used Date Smoking Tobacco: Never Smokeless Tobacco: Never Alcohol Use Standard Drinks/Week Comments Not Currently 0 (1 standard drink = 0.6 oz pur e alcohol) socially in past Sex and Gender Information Value Date Recorded Sex Assigned at Male 07/02/2021 2:37 PM CDT 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 2L [place] [address] 08/04/2024 1:30 PM CDT Office Visit [facility] - Urology [address] [place] [address] Thomas Mendoza MD [address] [facility] 2L [place] [address] 09/13/2024 10:40 AM CDT Office Visit [facility] - Endocrinology [address] [place] [address], [place] [address] Niraj Turner MD [address] [place] [address] 2L [place] [address] documented as of this encounter Procedures Procedure Name Priority Date/Time Associated Diagnosis Comments HOLD HLA SPECIMEN Routine 04/27/2024 1:4 8 PM CDT documented in this encounter Results * HOLD HLA SPECIMEN (04/27/2024 1:48 PM CDT) Hold HLA Specimen 04/29/2024 3:02 PM CDT [facility] Comment:The Hold HLA specime n has been received into the lab and will be held for 5 years at 4 degrees. Blood BLOOD SPECIMEN / Unknown 04/27/2024 1:48 PM CDT 04/29/2024 1:49 PM CDT Alan Davenport MD LAB - BLOOD BANK ORDERABLES F inal Result [facility] ([facility]) [address] [place] [address], [facility] documented in this encounter Visit Diagnoses Not on filedocumented in this encounter Care Teams Mds Rn Relationship Specialty Start Date End Date Jeff Strickland MD [address] [place] [address] PCP - General 03/05/18 [place] [address] [address] Orthopedic Surgery 03/28/17 documented as of this encounter
--- OUTSIDE RECORDS SUMMARY | 2024-06-30 00:09 | XMS_ITS | Clinical Summary ---
Author Organization [facility] Address [facility] [place] [address] Care Team Providers Care Rip/Mould Operator Name Role Phone Jeff Strickland MD Primary Care Provider [phone] Allergies Active Allergy Reactions Criticality Noted Date [...] by mouth nightly at bedtime. Active Multiple Vitamins-[place] als (PRESERVISION AREDS 2 OR) Take 1 each by mouth 2 (two) times a day. Active tiZANidine (ZANAFLEX) 4 MG tablet Take 1 tablet (4 mg total) by mouth every 8 (eight) hours as needed. 30 tablet 4 Active Active Problems Problem Noted Date Diagnosed Date Intractable headache 05/02/2023 Hypertensive urgency 05/01/2023 Immunizations Immunization Administration Dates Next Due Fluzone 6 Months+ Quad (0.5 mL Prefilled Syringe ) 05/03/2023 Social History Tobacco Use Types Packs/Day Years Used Date Smoking Tobacco: Never Smokeless Tobacco: Never Tobacco Cessation:Counseling Given: Not Answered Alcohol Use Standard Drinks/Week Comments Not Currently 0 (1 standard drink = 0.6 oz pur e alcohol) 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 Author Patient will return to prior living situation and remain independent in ADLs upon discharge from hospital Lifestyle No Alice Rizzo, [facility] Insurance [employer] Advance Directives * Full Code (Latest Code Status on File) Date Activated Date Inactivated Comments 05/02/2023 12:46 AM 05/03/2023 12:26 PM Care Teams Rip/Mould Operator Relationship Specialty Start Date End Date Jeff Strickland MD [address] [place] [address] PCP - General FAMILY PRACTICE 02/22/23
--- OUTSIDE RECORDS SUMMARY | 2024-06-30 00:09 | XMS_ITS | Clinical Summary ---
Author Organization [facility] Address [address] [place] [address] Care Team Providers Care Biomedical Specialist Name Role Phone Unavailable Primary Care Provider Unavailabl e Social History Tobacco Use Types Packs/Day Years Used Date Smoking Tobacco: Never Assessed Sex and Gender Information Value Date Recorded Sex Assigned at Not on file Legal Sex Male 10:55 AM CDT Gender Identity Not on file Sexual Orientation Not on file Plan of Treatment Upcoming Encounters Date Type Department Care Team (Late st Contact Info) Description 07/19/2024 11:00 AM CDT Office Visit [facility] - Cardiology - [place] [address] [place] [phone] Maylin Cutler, DO [address] [address] Health Maintenance Due Date Last Done Comments Hepatitis C Virus (HCV) Screening 1955 Colonoscopy 01/19/2001 Colorectal Cancer Screening 01/19/2001 Cologuard 01/19/2006 Immunochemical Fecal Occult Blood 01/19/2006 Pneumococcal Immunization (50+ years) (1 of 1 - PCV) 01/19/2006 PSA Discussion 01/19/2011 SARS-COV-2 Immunization ( - 2023- season) 2024 12/13/2023, 05/05/2020, 04/15/2020 Respiratory Syncytial Virus (RSV) Immunization (Adult) (1 - 1-dose 75+ series) 01/19/2031 TdaP Immunization Completed 04/09/2016 Influenza Immunization Completed 4, 05/03/2023, 03/30/2018, Additional history exists Zoster Immunization Completed 01/01/2024, Hepatitis B Immunization Aged Out No longer eligible based on patient's age to complete this topic Meningococcal Immunization (ACWY) Aged Out No longer eligible based on patient's age to complete this topic Rotavirus Immunization Aged Out No lo nger eligible based on patient's age to complete this topic
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
[2024-06-30 12:04] VITALS: BP 152/72; PULSE 61; RESP 18; TEMP 36.3; O2SAT 99
[2024-06-30] MEDS: LACTATED RINGERS 1,000 ML 150 ML IV CONT (12:06)
[2024-06-30 12:11] LABS: Glucose Point of Care 80 mg/dl (65-105)
--- NOTE | 2024-06-30 12:28 | P.PNAN_ITS ---
Anes - Initial Pre Proc Eval Procedure: Operation Date: 06/30/24 13:00 Proposed Procedures p Colonoscopy - Jonatan Brown MD s Esophagogastroduodenoscopy - Jonatan Brown MD Date/Time: 06/30/24 12:28 Surgeon: Jonatan Brown MD Pre Op Diagnosis: right lower quad pain,chroic pain Patient Data Age: 69 Gender: M Height: 1.73 m Weight: 117.9 kg Last Vital Signs Temp 36.3 C L 06/30/24 12:04 Pulse 61 06/30/24 12:04 Resp 18 06/30/24 12:04 BP 152/72 H 06/30/24 12:04 Pulse Ox 99 06/30/24 12:04 O2 Del Method Room Air 06/30/24 12:04 Allergies Allergy/AdvReac Type Severity Reaction Status Date / Time oxycodone AdvReac Unknown Hallucinati Verified 06/17/24 15:33 ng Home Medications Medication Instructions Recorded Confirmed Type aspirin 81 mg tablet,delayed 81 mg PO DAILY 02/01/19 06/30/24 History release (Sami Low Dose Aspirin) vit C 250 mg-vit E 200 unit-zinc 1 tablet PO Q12H 02/01/19 06/30/24 History 12.5 mg-copper 1 pu-tla-jlbwhg tablet (ICaps AREDS2 (copper citrate)) cholecalciferol (vitamin D3) 125 125 mcg PO QNOON 10/01/22 06/30/24 History mcg (5,000 unit) tablet (Vitamin D3) atorvastatin 80 mg tablet 80 mg PO HS 09/02/23 06/30/24 History calcium acetate(phosphat bind) 667 2,001 mg PO TIDWM 03/13/24 06/30/24 History mg capsule fenofibrate nanocrystallized 145 145 mg PO QNOON 03/13/24 06/30/24 History mg tablet folic acid 0.8 mg-vit B comp with 800 tablet PO .noon 04/03/24 06/30/24 History R-zlap-xkdhswu D3 2,000 unit tablet (Dialyvite 800-Ultra D) insulin aspart U-100 100 unit/mL 1 sliding scale dose subcut TID 04/03/24 06/30/24 History (3 mL) subcutaneous pen (Novolog FlexPen U-100 Insulin aspart) insulin glargine 100 unit/mL (3 30 unit subcut BID 04/03/24 06/30/24 History mL) subcutaneous pen (Basaglar KwikPen U-100 Insulin) levothyroxine 112 mcg tablet 112 mcg PO DAILY #90 tabs 04/15/24 06/30/24 Rx lorazepam 0.5 mg tablet (Ativan) 0.5 mg PO DAILY PRN Anxiety #30 04/15/24 06/30/24 Rx tabs furosemide 80 mg tablet 80 mg PO BID 04/21/24 06/30/24 History lisinopril 20 mg tablet 20 mg PO DAILY 04/21/24 06/30/24 History azelastine 137 mcg (0.1 %) nasal 1 spray intranasal Q12H 30 days 04/23/24 06/30/24 Rx spray #30 mL blood-glucose transmitter (Dexcom 04/23/24 05/24/24 History G6 Transmitter device) nystatin 100,000 unit/gram topical 1 applic topical DAILY 04/23/24 06/30/24 History powder (Nystop) calcium carbonate (Tums) 200 mg PO DAILY #30 tabs 05/07/24 06/17/24 Rx ondansetron 4 mg disintegrating 4 mg PO Q8H PRN nausea and 05/07/24 06/17/24 Rx tablet vomiting #7 tabs gabapentin 300 mg capsule 300 mg PO TID #90 caps 06/03/24 06/30/24 Rx carvedilol 25 mg tablet 25 mg PO BID 06/17/24 06/30/24 History clonidine 0.1 mg/24 hr weekly 1 patch transdermal WEEKLY 06/17/24 06/30/24 History transdermal patch diltiazem HCl 120 mg 120 mg PO BID 06/17/24 06/30/24 History capsule,extended release 12 hr tamsulosin 0.4 mg capsule 0.4 mg PO Q24H 06/17/24 06/30/24 History Laboratory Tests 06/30/24 12:09 POC Capillary Glucose 80 mg/dl (65-105) Patient hx anesthesia problems: none Family hx anesthesia problems: none Results Review: All pre-operative results and documents have been reviewed as part of the pre- operative evaluation. [facility] Past Medical History Medical History Chronic ethmoidal sinusitis Nasal congestion Bilateral impacted cerumen Allergic rhinitis Chronic sinusitis Chronic recurrent sinusitis Hypertensive CHF C. difficile colitis Arthritis Kidney stones Benign prostatic hyperplasia Coronary artery disease End-stage renal disease on peritoneal dialysis Obstructive sleep apnea Insulin dependent type 2 diabetes mellitus Renal cell carcinoma Status post partial left nephrectomy. Dyslipidemia Clostridium difficile infection Gastroesophageal reflux disease Depression with anxiety Hypothyroidism Cirrhosis Pituitary tumor Status post resection. Anemia Chronic diastolic (congestive) heart failure Hypertension Surgical History Surgical History History of open reduction and internal fixation (ORIF) procedure (11/2022) Screw fixation of sternal fracture. History of colonoscopy with polypectomy History of umbilical hernia repair History of inguinal hernia repair History of coronary artery stent placement History of cardiac catheterization (08/2020) Stent x2 to the LAD. History of arthroplasty of right knee History of cataract extraction History of pituitary surgery (11/2021) History of partial nephrectomy Partial left nephrectomy for renal cell carcinoma. History of cholecystectomy (2007) Family History Family History Mother Aneurysm Hypertension Cerebrovascular accident Father Carcinoma of colon Social History Social History Social History: Surrogate medical decision maker: Harriet Carl, spouse. Code status: Full code. Smoking status: Never smoker Second hand tobacco smoke exposure: No Alcohol intake: never Alcohol use details: rare, holidays Substance use: never Substance use type: does not use Current Housing: Decline to Answer Concerned About Future Housing: Decline to Answer Difficulty Paying Gas/Electric Bills: Decline to Answer Difficulty Paying for Meds: Decline to Answer Currently Unemployed: Decline to Answer Education: Decline to Answer Difficulty w/ Childcare or Family Care: Decline to Answer Living arrangements: with family Additional living arrangements comments: Lives with spouse in [place]. Occupation/Education: retired Additional occupation/education comments: [employer]. Spiritual care concerns: No Agree to blood products: Yes Anes - Eval Final PreProcedure Day of Procedure 06/30/24 12:28 Patient weight: morbidly obese Heart: regular rate and rhythm Lungs: clear to auscultation Airway: Mallampati scale class III Neurological: alert and oriented Last oral intake: >/= 8 hours ASA classification: III Emergent: no Anesthetic plan: proceed Anesthesia type and monitoring: general GIVS and standard monitoring Results Review: All pre-operative results and documents have been reviewed as part of the pre- operative evaluation. Informed Consent: The patient's anesthetic plan and its attendant risks and benefits were discussed with the patient/family/POA. Questions were solicited and answers provided to the satisfaction of the patient/family/POA.
--- NOTE | 2024-06-30 12:59 | PM.HPGS ---
History of Present Illness History of Present Illness Consent: Risks, benefits, and alternatives have been discussed and questions answered. Patient agrees to proceed with procedure. Chief complaint: right lower quad pain,chroic pain Narrative: Kendall Carl is a 69 year old male here for nausea, abdominal pain and diarrhea, he has ESRD, also diagnosed with gastroparesis confirmed by abnormal GES (h/o DM), last colonoscopy 2021 with polyp, father also had colon cancer. Last EGD 2023 but had 2, only mild esophagitis and mild gastritis, no other findings. Review of Systems Review of Systems: All systems reviewed & are unremarkable except as noted in HPI and below PMFSH Past Medical History Medical History (Updated 06/30/24 @ 13:01 by Jonatan Brown MD) Chronic diarrhea Family history of colon cancer in father Chronic ethmoidal sinusitis Nasal congestion Bilateral impacted cerumen Allergic rhinitis Chronic sinusitis Chronic recurrent sinusitis Hypertensive CHF C. difficile colitis Arthritis Kidney stones Benign prostatic hyperplasia Coronary artery disease End-stage renal disease on peritoneal dialysis Obstructive sleep apnea Insulin dependent type 2 diabetes mellitus Renal cell carcinoma Status post partial left nephrectomy. Dyslipidemia Clostridium difficile infection Gastroesophageal reflux disease Depression with anxiety Hypothyroidism Cirrhosis Pituitary tumor Status post resection. Anemia Chronic diastolic (congestive) heart failure Hypertension Surgical History Surgical History History of open reduction and internal fixation (ORIF) procedure (11/2022) Screw fixation of sternal fracture. History of colonoscopy with polypectomy History of umbilical hernia repair History of inguinal hernia repair History of coronary artery stent placement History of cardiac catheterization (08/2020) Stent x2 to the LAD. History of arthroplasty of right knee History of cataract extraction History of pituitary surgery (11/2021) History of partial nephrectomy Partial left nephrectomy for renal cell carcinoma. History of cholecystectomy (2007) Family History Family History Mother Aneurysm Hypertension Cerebrovascular accident Father Carcinoma of colon Social History Social History Social History: Surrogate medical decision maker: Harriet Carl, spouse. Code status: Full code. Smoking status: Never smoker Second hand tobacco smoke exposure: No Alcohol intake: never Alcohol use details: rare, holidays Substance use: never Substance use type: does not use Current Housing: Decline to Answer Concerned About Future Housing: Decline to Answer Difficulty Paying Gas/Electric Bills: Decline to Answer Difficulty Paying for Meds: Decline to Answer Currently Unemployed: Decline to Answer Education: Decline to Answer Difficulty w/ Childcare or Family Care: Decline to Answer Living arrangements: with family Additional living arrangements comments: Lives with spouse in [place]. Occupation/Education: retired Additional occupation/education comments: [employer]. Spiritual care concerns: No Agree to blood products: Yes Meds Home Medications and Allergies Home Medications Medication Instructions Recorded Confirmed Type aspirin 81 mg tablet,delayed 81 mg PO DAILY 02/01/19 06/30/24 History release (Sami Low Dose Aspirin) vit C 250 mg-vit E 200 unit-zinc 1 tablet PO Q12H 02/01/19 06/30/24 History 12.5 mg-copper 1 pl-pce-verbee tablet (ICaps AREDS2 (copper citrate)) cholecalciferol (vitamin D3) 125 125 mcg PO QNOON 10/01/22 06/30/24 History mcg (5,000 unit) tablet (Vitamin D3) atorvastatin 80 mg tablet 80 mg PO HS 09/02/23 06/30/24 History calcium acetate(phosphat bind) 667 2,001 mg PO TIDWM 03/13/24 06/30/24 History mg capsule fenofibrate nanocrystallized 145 145 mg PO QNOON 03/13/24 06/30/24 History mg tablet folic acid 0.8 mg-vit B comp with 800 tablet PO .noon 04/03/24 06/30/24 History S-ddhz-zlczfkm D3 2,000 unit tablet (Dialyvite 800-Ultra D) insulin aspart U-100 100 unit/mL 1 sliding scale dose subcut TID 04/03/24 06/30/24 History (3 mL) subcutaneous pen (Novolog FlexPen U-100 Insulin aspart) insulin glargine 100 unit/mL (3 30 unit subcut BID 04/03/24 06/30/24 History mL) subcutaneous pen (Basaglar KwikPen U-100 Insulin) levothyroxine 112 mcg tablet 112 mcg PO DAILY #90 tabs 04/15/24 06/30/24 Rx lorazepam 0.5 mg tablet (Ativan) 0.5 mg PO DAILY PRN Anxiety #30 04/15/24 06/30/24 Rx tabs furosemide 80 mg tablet 80 mg PO BID 04/21/24 06/30/24 History lisinopril 20 mg tablet 20 mg PO DAILY 04/21/24 06/30/24 History azelastine 137 mcg (0.1 %) nasal 1 spray intranasal Q12H 30 days 04/23/24 06/30/24 Rx spray #30 mL blood-glucose transmitter (Dexcom 04/23/24 05/24/24 History G6 Transmitter device) nystatin 100,000 unit/gram topical 1 applic topical DAILY 04/23/24 06/30/24 History powder (Nystop) calcium carbonate (Tums) 200 mg PO DAILY #30 tabs 05/07/24 06/17/24 Rx ondansetron 4 mg disintegrating 4 mg PO Q8H PRN nausea and 05/07/24 06/17/24 Rx tablet vomiting #7 tabs gabapentin 300 mg capsule 300 mg PO TID #90 caps 06/03/24 06/30/24 Rx carvedilol 25 mg tablet 25 mg PO BID 06/17/24 06/30/24 History clonidine 0.1 mg/24 hr weekly 1 patch transdermal WEEKLY 06/17/24 06/30/24 History transdermal patch diltiazem HCl 120 mg 120 mg PO BID 06/17/24 06/30/24 History capsule,extended release 12 hr tamsulosin 0.4 mg capsule 0.4 mg PO Q24H 06/17/24 06/30/24 History Allergies Allergy/AdvReac Type Severity Reaction Status Date / Time oxycodone AdvReac Unknown Hallucinati Verified 06/17/24 15:33 ng Vital Signs Vital Signs - 24 hr 06/30/24 12:04 Temperature 97.3 F L Pulse Rate 61 Respiratory Rate 18 Blood Pressure 152/72 H Pulse Oximetry 99 Oxygen Delivery Room Air Exam Narrative: Awake alert oriented appears stated age Const: General: comfortable and no acute distress HENMT: Face/Nose/Sinus: Normal nares present Eyes: General: appearance normal, both eyes and all related structures Neck: Neck: supple Resp: Effort & Inspection: normal respiratory effort Auscultation: clear to auscultation bilaterally Cardio: Rate: regular rate GI: Inspection: non-distended GI Palp: Yes Soft to palpation and No Guarding due to palpation present (GI) Auscultation: normal bowel sounds Other: PD catheter in place Skin: General skin exam: normal color Neuro: Cranial nerves: Yes Normal hearing present Speech: normal speech and No Abnormal speech present Extrem: General: normal to inspection Psych: Mental Status: mental status grossly normal Assessment and Plan Assessment and plan (1) Chronic GERD: Code(s): K21.9 - Gastro-esophageal reflux disease without esophagitis Status: Chronic Assessment and Plan: egd with bx (2) Abdominal pain: Qualifiers: Abdominal location: lower abdomen, unspecified Qualified Code(s): R10.30 - Lower abdominal pain, unspecified Code(s): R10.9 - Unspecified abdominal pain Status: Acute Assessment and Plan: probably multifactorial, also can be explained by gastroparesis, DM and renal disease (3) Gastroparesis: Code(s): K31.84 - Gastroparesis Status: Acute (4) Family history of colon cancer in father: Code(s): Z80.0 - Family history of malignant neoplasm of digestive organs Status: Acute Assessment and Plan: colonoscopy (5) Chronic diarrhea: Code(s): K52.9 - Noninfective gastroenteritis and colitis, unspecified Status: Acute Assessment and Plan: consider random colon bx
[2024-06-30] MEDS: SODIUM CHLORIDE 0.9% IV 500 ML 10 ML IV CONT (13:01)
[2024-06-30] MEDS: BENZOCAINE (*SP) 60 ML SPRAY CAN (HURRICAINE) 1 SPRAY MUCOUS MEM (13:08)
--- NOTE | 2024-06-30 13:15 | SUR.OPER ---
EGD end 1313 COLONOSCOPY START 1317
[2024-06-30 13:50] VITALS: BP 111/53; PULSE 62; RESP 17; O2SAT 100
[2024-06-30 14:00] VITALS: BP 138/57; PULSE 65; RESP 16; O2SAT 100
[2024-06-30 14:10] VITALS: BP 142/62; PULSE 61; RESP 16; O2SAT 99
[2024-06-30 14:10] LABS: Glucose Point of Care 80 mg/dl (65-105)
== END 2024-06-30 14:25 | disposition home or self-care (01) ==
PROVIDERS: PCP Family Medicine; Referring Provider Nurse Practitioner; Visit Provider Internal Medicine Gastroenterology
PROC: 0DJD8ZZ Inspection of Lower Intestinal Tract, Via Natural or Artificial Opening Endoscopic (ICD-10-PCS; CPT 45378; principal; 2024-06-30 13:00)
PROC: 0DJ08ZZ Inspection of Upper Intestinal Tract, Via Natural or Artificial Opening Endoscopic (ICD-10-PCS; CPT 43239; 2024-06-30 13:00)
DX: D12.2 Benign neoplasm of ascending colon (principal); D12.8 Benign neoplasm of rectum; D12.0 Benign neoplasm of cecum; D12.3 Benign neoplasm of transverse colon; K63.5 Polyp of colon; K57.30 Diverticulosis of large intestine without perforation or abscess without bleeding; K31.89 Other diseases of stomach and duodenum; K21.9 Gastro-esophageal reflux disease without esophagitis; K29.70 Gastritis, unspecified, without bleeding; K31.7 Polyp of stomach and duodenum; K31.84 Gastroparesis; G89.29 Other chronic pain; E78.5 Hyperlipidemia, unspecified; E03.9 Hypothyroidism, unspecified; D64.9 Anemia, unspecified; N40.0 Benign prostatic hyperplasia without lower urinary tract symptoms; E11.22 Type 2 diabetes mellitus with diabetic chronic kidney disease; I12.0 Hypertensive chronic kidney disease with stage 5 chronic kidney disease or end stage renal disease; N18.6 End stage renal disease; J32.2 Chronic ethmoidal sinusitis; I11.0 Hypertensive heart disease with heart failure; I25.10 Atherosclerotic heart disease of native coronary artery without angina pectoris; K74.60 Unspecified cirrhosis of liver; G47.33 Obstructive sleep apnea (adult) (pediatric); F41.8 Other specified anxiety disorders; M19.90 Unspecified osteoarthritis, unspecified site; E66.01 Morbid (severe) obesity due to excess calories; Z68.39 Body mass index [BMI] 39.0-39.9, adult; Z79.82 Long term (current) use of aspirin; Z79.4 Long term (current) use of insulin; Z99.2 Dependence on renal dialysis; Z98.890 Other specified postprocedural states; Z95.5 Presence of coronary angioplasty implant and graft; Z90.49 Acquired absence of other specified parts of digestive tract; Z90.5 Acquired absence of kidney; Z87.442 Personal history of urinary calculi; Z87.19 Personal history of other diseases of the digestive system; Z85.528 Personal history of other malignant neoplasm of kidney; Z80.0 Family history of malignant neoplasm of digestive organs; Z82.49 Family history of ischemic heart disease and other diseases of the circulatory system
CPT/HCPCS: 43239; 45380; 45385; 82948; 88305; J2003; J2704; J7040; J7120

== ENCOUNTER 2024-07-24 21:06 | Inpatient (IN) | payer MEDICARE, SELFPAY ==
--- NOTE | ~2024-07-24 | US_ITS ---
EXAMINATION: US venous doppler [facility] DATE: 07/27/2024 17:34 INDICATION: Slow healing lower limb wound. Lower limb pain and swelling. TECHNIQUE: Grayscale ultrasound images without and with compression and Doppler ultrasound images of the bilateral lower extremity veins were obtained. COMPARISON: None. FINDINGS: The visualized portions of right common femoral vein, profunda (deep) femoral vein, femoral vein, pop liteal vein, posterior tibial veins, peroneal veins, gastrocnemius vein and greater saphenous vein ou tflow are patent. The visualized portions of left common femoral vein, profunda femoral vein, femoral vein, popliteal v ein, posterior tibial veins, peroneal veins, gastrocnemius vein and greater saphenous vein outflow ar e patent. IMPRESSION: 1. No deep venous thrombosis in either lower limb. Reviewed, dictated and finalized at location A.
--- NOTE | ~2024-07-24 | XR_ITS ---
Portable chest x-ray Comparison: 04/02/2024 Clinical History: Dyspnea Findings: Lungs are clear, without focal consolidation or pleural effusion. Cardiomediastinal silho uette is stable. Bones and soft tissues are unremarkable. Impression: Clear lungs. Reviewed, dictated and finalized at location . Impression: Clear lungs.
--- NOTE | ~2024-07-24 | US_ITS ---
EXAMINATION: US arterial ankle brachial ind DATE: 07/25/2024 14:22 INDICATION: Medication. Poorly healing left foot ulcer. TECHNIQUE: Segmental pressures and plethysmographic and Doppler waveforms of the brachial and lower e xtremity arteries were obtained. COMPARISON: None. FINDINGS: Right and left brachial artery pressures of 173 mm Hg and 157 mm Hg, respectively, are concordant (no rmal difference <= 30 mmHg). The right ankle-brachial index (TWYLA) is able to be obtained due to inability to occlude the vessels a t the right ankle (normal >= 0.9-1.0). The right great toe-brachial index (TBI) is 0.14 (normal >= 0. 65). Arterial Doppler waveforms are monophasic in the right posterior tibial artery and biphasic in t he dorsalis pedis artery, both with brisk systolic upstrokes. The left TWYLA is 0.68 based solely upon compression the left posterior tibial artery with the left ashely salis pedis artery unable to be occluded. The left TBI is 0.16. Arterial Doppler waveforms are tripha sic in the left posterior tibial artery and biphasic in the left dorsalis pedis artery, both with duyen sk systolic upstrokes. IMPRESSION: 1. Arterial occlusive disease with moderately decreased left TWYLA and severely decreased bilateral toe brachial indices. Right TWYLA was unable to be obtained due to inability to occlude the vessels Reviewed, dictated and finalized at location A. IMPRESSION: 1. Arterial occlusive disease with moderately decreased left TWYLA and severely d ecreased bilateral toe brachial indices. Right TWYLA was unable to be obtained du e to inability to occlude the vessels
--- NOTE | ~2024-07-24 | XR_ITS ---
Left foot Technique: AP, oblique, and lateral views were obtained. Clinical History: Great toe osteomyelitis Findings: No acute fracture or dislocation is seen. Osseous alignment is anatomic. Joint spaces are p reserved without erosive or degenerative change. Vascular calcifications are present. Impression: No radiographic evidence for osteomyelitis. Reviewed, dictated and finalized at [facility]. Impression: No radiographic evidence for osteomyelitis.
[2024-07-24 21:08] VITALS: BP 161/75; PULSE 70; RESP 16; TEMP 36.4; O2SAT 99
--- OUTSIDE RECORDS SUMMARY | 2024-07-24 21:08 | XMS_ITS | Encounter Summary ---
Author Organization [facility] Address [address] [place] [address] Care Team Providers Care Citrix Lead Name Role Phone Deandre Bojorquez MD Unavailable [phone] Jeff Strickland MD Primary Care Provider [phone] Encounter Details Date Type Department Care Team (Late st Contact Info) Description 02/07/2023 Lab Requisition [facility] [address] [place] [id number] Alan Davenport MD [facility] [place] [address] Social History Tobacco Use Types Packs/Day Years Used Date Smoking Tobacco: Never Smokeless Tobacco: Never Alcohol Use Standard Drinks/Week Comments Not Currently 0 (1 standard drink = 0.6 oz pur e alcohol) socially in past Sex and Gender Information Value Date Recorded Sex Assigned at Male 07/02/2021 2:37 PM CDT Legal Sex Male 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 Gender Identity Male 07/02/2021 2:37 PM CDT [...] Author No 08/04/2020 12:15 PM CDT Monique uSárez RN * Does person have difficulty doing [...] AM CDT Appointment [facility] MRI [address] [place] [address] Thomas Mendoza MD [address] [place] [address] [address] [place] [address] 08/04/2024 1:30 PM CDT Office Visit [facility] - Urology [address] [place] [id number] Thomas Mendoza MD [address] [place] [address] [address] [place] [address] 09/13/2024 10:40 AM CDT Office Visit [facility] - Endocrinology [address] [place] [address], [place] [address] Niraj Turner MD [address] [place] [address] 2L [place] [address] 10/13/2024 1:00 PM CDT Office Visit [facility] - Cardiology [address] [facility] [place] [address] [place] [phone] Maylin Cutler DO [address] [facility] [address] [place] [address] Scheduled Procedures Name Priority Associated Diagnoses Date/Ti me CCL STAGED PERC CORONARY INTERVENTION Abnormal stress test Dyspnea on exertion Pre-kidney transplant, listed Coronary artery disease with angina pectoris, unspecified vessel or lesion type, unspecified whether [place] or transplanted heart Abnormal findings on cardiac catheterization documented as of this encounter Procedures Procedure Name Priority Date/Time Associated Diagnosis Comments HOLD HLA SPECIMEN Routine 2023 7:5 8 AM GAS TESTER documented in this encounter Results * HOLD HLA SPECIMEN (2023 7:58 AM GAS TESTER) Hold HLA Specimen 02/07/2023 9:01 AM GAS TESTER [facility] Comment:The Hold HLA specime n has been received into the lab and will be held for 5 years at 4 degrees. Blood BLOOD SPECIMEN / Unknown 2023 7:58 AM GAS TESTER 02/07/2023 7:59 AM GAS TESTER Alan Davenport MD LAB - BLOOD BANK ORDERABLES F inal Result [facility] [address] documented in this encounter Visit Diagnoses Not on filedocumented in this encounter Care Teams Citrix Lead Relationship Specialty Start Date End Date Jeff Strickland MD [address] [place] [address] PCP - General 03/05/18 [place] [address] [place] [address] Orthopedic Surgery 03/28/17 documented as of this encounter
--- OUTSIDE RECORDS SUMMARY | 2024-07-24 21:08 | XMS_ITS ---
Author Organization [facility] Address [address] [place] [address] [place] [address] Care Team Providers Care Liquefied Natural Gas Plant Operator Name Role Phone DONNIE WOOD MD Primary Care Provider Robba Sergio Trujillo Unavailable [phone] REASON FOR VISIT BILAT SHOULDER JOINT INJECTION (NEED XRAY - BEING DONE AT [facility]) MEDICATIONS Medication SIG (Take, Route, Frequency, [...] Location Date Provider Diagnosis [facility] [address] [place] [phone] 03/08/2024 Sergio Rivera Primary osteoarthritis, unspecified shoulder [...] discharged 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 X-ray time: 6 seconds Progress Notes * [...] patient's typical axial low back pain. John's, [place]'s and Gaenslen's are positive bilaterally. There is [...]
--- OUTSIDE RECORDS SUMMARY | 2024-07-24 21:08 | XMS_ITS | Clinical Summary ---
Author Organization [facility] Address [address] [place] [address] Phone Care Team Providers Care Psych Nurse Name Role Phone Jeff Strickland MD Primary Care Provider [phone] Allergies No known active allergies Medications pantoprazole [...] tablet Take 112 mcg by mouth daily inseam leveler. Active aspirin (ANGELLA) 325 mg tablet Take 325 mg by mouth daily. Active Vit C-Vit H-Iwyiem-SdNn-L utein (PRESERVISION) 226 mg-200 unit -5 mg-0.8 [...] Comments Blood Pressure 167/77 02/04/2019 9:16 AM OIL PIPELINE OPERATOR Pulse 64 02/04/2019 9:16 AM OIL PIPELINE OPERATOR Temperature 36.5 C (97.7 F) 02/04/2019 9:16 AM OIL PIPELINE OPERATOR Respiratory Rate 16 02/04/2019 9:16 AM OIL PIPELINE OPERATOR Oxygen Saturation 97% 02/04/2019 9:16 AM OIL PIPELINE OPERATOR Inhaled Oxygen Concentration - - Weight 113.4 kg (250 lb) 02/04/2019 9:16 AM OIL PIPELINE OPERATOR Height 175.3 cm (5' 9) 02/04/2019 9:16 AM OIL PIPELINE OPERATOR Body Mass Index 36.92 02/04/2019 9:16 AM OIL PIPELINE OPERATOR Plan of Treatment Health Maintenance Due [...] 04/20/2020, 03/20/2020 DIABETES HBA1C Q 6 MONTHS 12/16/20242024, 04/23/2024, 04/10/2024, Additional history exists DIABETES ANNUAL RETINAL EXAM 03/09/2025, 12/10/2023, 10/08/2023 DTAP/TDAP/TD VACCINES (3 - T d or Tdap) 04/10/2026 04/10/2016, 04/09/2016 Insurance [facility] BLUE ACCESS/TRUE BLUE PPO [employer] MEDICARE SUPPLEMENT PPO [facility] BLUE ACCESS/TRUE BLUE PPO Care Teams Psych Nurse Relationship Specialty Start Date End Date Jeff Strickland MD [address] [place] [phone] PCP - General Family Practice 01/01/19
--- OUTSIDE RECORDS SUMMARY | 2024-07-24 21:08 | XMS_ITS | Encounter Summary ---
Author Organization [facility] Address [address] [place] [address] Phone Care Team Providers Care Invoice Checker Name Role Phone Jeff Strickland MD Primary Care Provider Chan Nicholas MD Unavailable [phone] Alan Mccall MD Unavailable [phone] Lorna Lantigua MD Unavailable [phone] Juliette Savage RN Unavailable Pepito Haro MD PhD Unavailable Solange Guido MD Unavailable Letha Gil RN Unavailable Encounter Details Date Type Department Care Team (Late st Contact Info) Description 05/02/2021 Ophth Exam [facility] Ophthalmology [address] [place] [address] 1st [place] [phone] Corina Ventura MD PhD [address] [facility] 6 [place] [address] Social History Tobacco Use Types [...] on file Legal Sex Male 2:23 AM STONEWORKING SANDER Gender Identity Not on file Sexual Orientation [...] COVID: Suspected 03/24/2023 03/24/2023 03/24/2023 5:45 PM STONEWORKING SANDER COVID19 03/24/2023 03/24/2023 04/08/2023 3:06 AM STONEWORKING SANDER COVID: Recovered Comment:Added based on recent COVID infection. 04/08/2023 04/10/2023 07/07/2023 3:06 AM C DT COVID: Suspected 04/10/2024 04/10/2024 04/11/2024 1:24 AM STONEWORKING SANDER C. difficile suspected 04/11/2024 04/11/202404/11 1:21 PM STONEWORKING SANDER documented as of this encounter Eye Exam [...] arcade Normal Periphery Normal Normal Care Teams Invoice Checker Relationship Specialty Start Date End Date Jeff Strickland MD [address] [address] PCP - General Family Medicine 04/02/18 Chan Nicholas MD [facility] [address] [address] Consulting Physician Gastroenterology 11/24/18 Alan Mccall MD [facility] [address] [address] Referring Physician Nephrology 11/24/18 Lorna Lantigua MD [facility] [address] [address] Consulting Physician Cardiology 11/24/18 07/22/23 Juliette Savage, RN [address] [place] [address] Nurse Navigator 06/04/21 03/14/22 Pepito Haro MD PhD [address] [place] [address] Consulting Physician Neurosurgery 12/03/22 Solange Guido MD [address] [facility] [address] [place] [address] Referring Physician Cardiovascular Disease 07/23/23 Letha Gil, RN [address] [facility] [address] [place] [address] SHOP Outpatient Service Observer Chief 04/14/24 04/18/24 documented as of this encounter
--- OUTSIDE RECORDS SUMMARY | 2024-07-24 21:08 | XMS_ITS ---
Author Organization [facility] Address [address] [place] [address] [place] [address] Care Team Providers Care Gear Repairer Name Role Phone DONNIE WOOD MD Primary Care Provider Lance Sergio Trujillo Unavailable [phone] ALLERGIES No Known Allergies REASON FOR VISIT [...] retired. 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 He denies tobacco, alcohol, or illicit drug abuse PROBLEMS Problem Type ICD Code Onset Dates Problem Status W/U Status Risk SNOMED Code Notes Problem Primary osteoarthritis, 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) Active confirmed Localized, primary osteoarthritis of the shoulder region ([id number]) VITAL SIGNS Blood pressure systolic 112 mm Hg 03/03/19 25 Blood pressure diastolic 62 mm Hg 025 Heart Rate 59 /min 03/03/2024 Respiratory Rate 18 /min 03/03/2024 Height 5 ft 9 in in 03/03/2024 Weight 229 lbs 03/03/2024 BMI 33.81 kg/m2 03/03/2024 Encounters Encounter Location Date Provider Diagnosis [facility] [address] [facility] [place] [address] 03/03/2024 Sergio Stynowick Pain in left knee [...] lumbar region (ICD-10 - M47.816) 03/03/2024 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 This note was dictated by KLESIE Chakraborty. Total Time Spent with Patient and [...] patient's typical axial low back pain. John's, Davenport's and Gaenslen's are positive bilaterally. There is [...]
--- OUTSIDE RECORDS SUMMARY | 2024-07-24 21:09 | XMS_ITS | Encounter Summary ---
Author Organization [facility] Address [facility] [place] [address] Care Team Providers Care Dining Service Supervisor Name Role Phone Deandre Bojorquez MD Unavailable [phone] Jeff Strickland MD Primary Care Provider [phone] Encounter Details Date Type Department Care Team (Late st Contact Info) Description 10/28/2023 Lab Requisition [facility] [address] [place] [phone] Alan Davenport MD [facility] ABD TRANSPL[place] [address] Social History Tobacco Use Types Packs/Day Years Used Date Smoking Tobacco: Never Smokeless Tobacco: Never Alcohol Use Standard Drinks/Week Comments Not Currently 0 (1 standard drink = 0.6 oz pur e alcohol) socially in past Sex and Gender Information Value Date Recorded Sex Assigned at Male 07/02/2021 2:37 PM CDT 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 Answer Date of Assessment Author No 08/04/2020 12:15 PM CDT Monique Suárez RN * Is person blind or have serious difficulty seeing? Answer Date of Assessment Author No 08/04/2020 12:15 PM CDT Moniqeu Suárez RN * Does person have serious [...] Info) Description 08/04/2024 11:30 AM CDT Appointment [facility] MRI [address] [place] [address] Thomas Mendoza MD [address] [place] [address] [address] [place] [address] 08/04/2024 1:30 PM CDT Office Visit [facility] - Urology [address] [place] [phone] Thomas Mendoza MD [address] [place] [address] [address] [place] [address] 09/13/2024 10:40 AM CDT Office Visit [facility] - Endocrinology [address] [place] [address], [place] [address] Niraj Turner MD [address] [place] [address] 2L [place] [address] 10/13/2024 1:00 PM CDT Office Visit [facility] - Cardiology [address] [facility] [place] [address] [place] [phone] Maylin Cutler DO [address] [facility] [address] [place] [address] Scheduled Procedures Name Priority Associated Diagnoses Date/Ti me CCL STAGED PERC CORONARY INTERVENTION Abnormal stress test Dyspnea on exertion Pre-kidney transplant, listed Coronary artery disease with angina pectoris, unspecified vessel or lesion type, unspecified whether [place] or transplanted heart Abnormal findings on cardiac catheterization documented as of this encounter Procedures Procedure Name Priority Date/Time Associated Diagnosis Comments HOLD HLA SPECIMEN Routine 10/22/2023 3:5 0 PM CDT documented in this encounter Results * HOLD HLA SPECIMEN (10/22/2023 3:50 PM CDT) Hold HLA Specimen 10/28/2023 5:00 PM CDT [facility] Comment:The Hold HLA specime n has been received into the lab and will be held for 5 years at 4 degrees. Blood BLOOD SPECIMEN / Unknown 10/22/2023 3:50 PM CDT 10/28/2023 3:50 PM CDT Alan Davenport MD LAB - BLOOD BANK ORDERABLES F inal Result [facility] [address] documented in this encounter Visit Diagnoses Not on filedocumented in this encounter Care Teams Dining Service Supervisor Relationship Specialty Start Date End Date Jeff Strickland MD [address] [place] [address] PCP - General 03/05/18 [place] [address] [place] [address] Orthopedic Surgery 03/28/17 documented as of this encounter
--- OUTSIDE RECORDS SUMMARY | 2024-07-24 21:09 | XMS_ITS | Encounter Summary ---
Author Organization [facility] Address [facility] [place] [address] Care Team Providers Care Police Detective Name Role Phone Deandre Bojorquez MD Unavailable [phone] Jeff Strickland MD Primary Care Provider [phone] Encounter Details Date Type Department Care Team (Late st Contact Info) Description 03/12/2024 Lab Requisition [facility] MAIN LAB [address] [place] [phone] Alan Davenport MD [facility]1 [facility] [place] [address] Social History Tobacco Use Types Packs/Day Years Used Date Smoking Tobacco: Never Smokeless Tobacco: Never Alcohol Use Standard Drinks/Week Comments Not Currently 0 (1 standard drink = 0.6 oz pur e alcohol) socially in past Sex and Gender Information Value Date Recorded Sex Assigned at Male 07/02/2021 2:37 PM CDT Legal Sex Male 10:14 PM RN COMMUNITY Gender Identity Male 07/02/2021 2:37 PM CDT [...] [facility] MRI [address] [place] [address] Thomas Mendoza MD [address] [place] [address] 2L DIV OF UROLOGIC [place] [address] 08/04/2024 1:30 PM CDT Office Visit [facility] - Urology [address] [place] [address] Thomas Mendoza MD [address] [place] [address] 2L DIV OF UROLOGIC [place] [address] 09/13/2024 10:40 AM CDT Office Visit [facility] - Endocrinology [address] [place] [address], [place] [address] Niraj Turner MD [address] [place] [address] 2L [place] [address] 10/13/2024 1:00 PM CDT Office Visit [facility] - Cardiology [address] [facility] [place] [address] [place] [address] Maylin Cutler DO [address] [facility] [address] [place] [address] Scheduled Procedures Name Priority Associated Diagnoses Date/Ti me CCL STAGED PERC CORONARY INTERVENTION Abnormal stress test Dyspnea on exertion Pre-kidney transplant, listed Coronary artery disease with angina pectoris, unspecified vessel or lesion type, unspecified whether [place] or transplanted heart Abnormal findings on cardiac catheterization documented as of this encounter Procedures Procedure Name Priority Date/Time Associated Diagnosis Comments HOLD HLA SPECIMEN Routine 03/05/2024 1:4 0 PM RN COMMUNITY documented in this encounter Results * HOLD HLA SPECIMEN (03/05/2024 1:40 PM RN COMMUNITY) Hold HLA Specimen 03/12/2024 3:00 PM RN COMMUNITY [facility] Comment:The Hold HLA specime n has been received into the lab and will be held for 5 years at 4 degrees. Blood BLOOD SPECIMEN / Unknown 03/05/2024 1:40 PM RN COMMUNITY 03/12/2024 1:40 PM RN COMMUNITY Alan Davenport MD LAB - BLOOD BANK ORDERABLES F inal Result [facility] [address] documented in this encounter Visit Diagnoses Not on filedocumented in this encounter Care Teams Police Detective Relationship Specialty Start Date End Date Jeff Strickland MD [address] [place] [address] PCP - General 03/05/18 [place] [address] [place] [address] Orthopedic Surgery 03/28/17 documented as of this encounter
--- OUTSIDE RECORDS SUMMARY | 2024-07-24 21:09 | XMS_ITS | Encounter Summary ---
Author Organization [facility] Address [facility]3 [place] [address] Care Team Providers Care Arbitrator Name Role Phone Deandre Bojorquez MD Unavailable [phone] Jeff Strickland MD Primary Care Provider [phone] Encounter Details Date Type Department Care Team (Late st Contact Info) Description 09/30/2023 Lab Requisition [facility] MAIN LAB [address] [place] [phone] Alan Davenport MD [facility]1 [facility] OF ABD [place] [address] Social History Tobacco Use Types Packs/Day Years Used Date Smoking Tobacco: Never Smokeless Tobacco: Never Alcohol Use Standard Drinks/Week Comments Not Currently 0 (1 standard drink = 0.6 oz pur e alcohol) socially in past Sex and Gender Information Value Date Recorded Sex Assigned at Male 07/02/2021 2:37 PM CDT 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 Gender Identity Male 07/02/2021 2:37 PM CDT [...] AM CDT Appointment [facility] MRI [address] [place] [address] Thomas Mendoza MD [address] [place] [address] 2L [place] [address] 08/04/2024 1:30 PM CDT Office Visit [facility] Physician Group - Urology [address] [place] [address] Thomas Mendoza MD [address] [place] [address] 2L [place] [address] 09/13/2024 10:40 AM CDT Office Visit [facility]ician Group - Endocrinology [address] [place] [address], [place] [address] Niraj Turner MD [address] [place] [address] 2L [place] [address] 10/13/2024 1:00 PM CDT Office Visit [facility] - Cardiology [address] [facility] [place] [address] [place] [address] Maylin Cutler DO [address] [facility] [address] [place] [address] Scheduled Procedures Name Priority Associated Diagnoses Date/Ti me CCL STAGED PERC CORONARY INTERVENTION Abnormal stress test Dyspnea on exertion Pre-kidney transplant, listed Coronary artery disease with angina pectoris, unspecified vessel or lesion type, unspecified whether [place] or transplanted heart Abnormal findings on cardiac catheterization documented as of this encounter Procedures Procedure Name Priority Date/Time Associated Diagnosis Comments HOLD HLA SPECIMEN Routine 09/24/2023 3:2 7 PM CDT documented in this encounter Results * HOLD HLA SPECIMEN (09/24/2023 3:27 PM CDT) Hold HLA Specimen 09/30/2023 4:32 PM CDT [facility]) Comment:The Hold HLA specime n has been received into the lab and will be held for 5 years at 4 degrees. Blood BLOOD SPECIMEN / Unknown 09/24/2023 3:27 PM CDT 09/30/2023 3:27 PM CDT Alan Davenport MD LAB - BLOOD BANK ORDERABLES F inal Result [facility]) [address] documented in this encounter Visit Diagnoses Not on filedocumented in this encounter Care Teams Arbitrator Relationship Specialty Start Date End Date Jeff Strickland MD [address] [place] [address] PCP - General 03/05/18 [place] [address] [place] [address] Orthopedic Surgery 03/28/17 documented as of this encounter
--- OUTSIDE RECORDS SUMMARY | 2024-07-24 21:09 | XMS_ITS | Encounter Summary ---
Author Organization [facility] Address [facility]3 [place] [address] Care Team Providers Care Supervisor General Name Role Phone Deandre Bojorquez MD Unavailable [phone] Jeff Strickland MD Primary Care Provider [phone] Encounter Details Date Type Department Care Team (Late st Contact Info) Description 11/21/2023 Lab Requisition [facility] MAIN LAB [address] [place] [phone] Alan Davenport MD [facility]1 [facility] OF [place] [address] Social History Tobacco Use Types Packs/Day Years Used Date Smoking Tobacco: Never Smokeless Tobacco: Never Alcohol Use Standard Drinks/Week Comments Not Currently 0 (1 standard drink = 0.6 oz pur e alcohol) socially in past Sex and Gender Information Value Date Recorded Sex Assigned at Male 07/02/2021 2:37 PM CDT Legal Sex Male 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 Gender Identity Male 07/02/2021 2:37 PM CDT [...] Info) Description 08/04/2024 11:30 AM CDT Appointment [facility] MRI [address] [place] [address] Thomas Mendoza MD [address] [place] [address] 2L [place] [address] 08/04/2024 1:30 PM CDT Office Visit [facility] Physician Group - Urology [address] [place] [address] Thomas Mendoza MD [address] [place] [address] 2L [place] [address] 09/13/2024 10:40 AM CDT Office Visit [facility] Physician Group - Endocrinology [address] [place] [address], [place] [address] Niraj Turner MD [address] [place] [address] 2L [place] [address] 10/13/2024 1:00 PM CDT Office Visit [facility] - Cardiology [address] [facility] [place] [address] [place] [address] Maylin Cutler DO [address] [facility] [address] [place] [address] Scheduled Procedures Name Priority Associated Diagnoses Date/Ti me CCL STAGED PERC CORONARY INTERVENTION Abnormal stress test Dyspnea on exertion Pre-kidney transplant, listed Coronary artery disease with angina pectoris, unspecified vessel or lesion type, unspecified whether [place] or transplanted heart Abnormal findings on cardiac catheterization documented as of this encounter Procedures Procedure Name Priority Date/Time Associated Diagnosis Comments HOLD HLA SPECIMEN Routine 11/18/2023 12: 16 PM CDT documented in this encounter Results * HOLD HLA SPECIMEN (11/18/2023 12:16 PM CDT) Hold HLA Specimen 11/21/2023 1:31 PM CDT [facility] ([facility]) Comment:The Hold HLA specime n has been received into the lab and will be held for 5 years at 4 degrees. Blood BLOOD SPECIMEN / Unknown 11/18/2023 12:16 PM CDT 11/21/2023 12:17 PM CDT Alan Davenport MD LAB - BLOOD BANK ORDERABLES F inal Result [facility] ([facility]) [address] documented in this encounter Visit Diagnoses Not on filedocumented in this encounter Care Teams Supervisor General Relationship Specialty Start Date End Date Jeff Strickland MD [address] [place] [address] PCP - General 03/05/18 [place] [address] [place] [address] Orthopedic Surgery 03/28/17 documented as of this encounter
--- OUTSIDE RECORDS SUMMARY | 2024-07-24 21:09 | XMS_ITS | Encounter Summary ---
Author Organization [facility] Address [facility]3 [place] [address] Care Team Providers Care Indian Trader Name Role Phone Deandre Bojorquez MD Unavailable [phone] Jeff Strickland MD Primary Care Provider Encounter Details Date Type Department Care Team (Late st Contact Info) Description 03/30/[address] 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 MRI [address] [place] [address] Thomas Mendoza MD [address] [place] [address] 2L [place] [address] 08/04/2024 1:30 PM CDT Office Visit [facility] - Urology [address] [place] [address] Thomas Mendoza MD [address] [place] [address] 2L [place] [address] 09/13/2024 10:40 AM CDT Office Visit [facility]ician [facility] - Endocrinology [address] [place] [address], [place] [address] Niraj Turner MD [address] [place] [address] 2L [place] [address] 10/13/2024 1:00 PM CDT Office Visit [facility] - Cardiology [address] [facility] [place] [address] [place] [address] Maylin Cutler DO [address] [facility] [facility] [address] [place] [address] Scheduled Procedures Name Priority Associated Diagnoses Date/Ti me CCL STAGED PERC CORONARY INTERVENTION Abnormal stress test Dyspnea on exertion Pre-kidney transplant, listed Coronary artery disease with angina pectoris, unspecified vessel or lesion type, unspecified whether [place] or transplanted heart Abnormal findings on cardiac catheterization documented as of this encounter Procedures Procedure Name Priority Date/Time Associated Diagnosis Comments HOLD HLA SPECIMEN Routine 03/25/2024 2:5 1 PM CLARIFIER OPERATOR documented in this encounter Results * HOLD HLA SPECIMEN (03/25/2024 2:51 PM CLARIFIER OPERATOR) Hold HLA Specimen 03/30/2024 4:01 PM CLARIFIER OPERATOR [facility] Comment:The Hold HLA specime n has been received into the lab and will be held for 5 years at 4 degrees. Blood BLOOD SPECIMEN / Unknown 03/25/2024 2:51 PM CLARIFIER OPERATOR 03/30/2024 2:51 PM CLARIFIER OPERATOR Alan Davenport MD LAB - BLOOD BANK ORDERABLES F inal Result [facility] [address] documented in this encounter Visit Diagnoses Not on filedocumented in this encounter Care Teams Indian Trader Relationship Specialty Start Date End Date Jeff Strickland MD [address] [place] [address] PCP - General 03/05/18 [place] [address] [place] [address] Orthopedic Surgery 03/28/17 documented as of this encounter
--- OUTSIDE RECORDS SUMMARY | 2024-07-24 21:09 | XMS_ITS | CONTINUITY OF CARE DOCUMENT ---
Author Name sally zavala Address Unknown Organization [facility] Address [address] [facility] [address] [place] [address] Phone [phone] Care Team Providers Care Composition Worker Name Role Phone Jason Becerra MD Unavailable DONNIE WOOD MD Unavailable [phone] DONNIE WOOD MD Unavailable PROBLEMS Condition [...] In-person encounter Office Visit Jason Becerra MD [facility] - In-person encounter Office Visit Jason Becerra MD [facility] Fatigue - In-person encounter Office Visit Jason Becerra MD [facility] Chest pain-type to be determined - In-person encounter Office Visit Jason Becerra MD 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 [id number] ADVANCE DIRECTIVES Name Date POWER OF CHASER APPRENTICE TREATMENT PLAN Date Name Performer Cardiology follow [...] BASIC METABOLIC PANE L W/EGFR DLCO - 62151 FRC - 49576 FVC - 83185 HISTORY OF PROCEDURES Procedure Date Procedure Name Provider Procedure Notes S tatus EKG Jason Becerra MD complete d Regadenoson, 4 units Jason Becerra MD completed Cardiolite, 2 units Jason Becerra MD completed SPECT Images Jason Becerra MD comple wendy Stress EKG Jason Becerra MD complete d FVC / MVV - 42316 Jason Becerra MD c ompleted BLOOD COUNT HEMOGLOBIN Jason Becerra MD completed FRC - 99872 Jason Becerra MD complet ed SpO2 w/o 6min walk/titration Jason Becerra MD completed DLCO - 37120 Jason nguyen DEMETRIS Becerra MD complete d
--- OUTSIDE RECORDS SUMMARY | 2024-07-24 21:09 | XMS_ITS | Encounter Summary ---
Author Organization [facility] Address [facility]3 [place] [address] Care Team Providers Care Distillery Laborer Name Role Phone Deandre Bojorquez MD Unavailable [phone] Jeff Strickland MD Primary Care Provider [phone] Encounter Details Date Type Department Care Team (Late st Contact Info) Description 07/31/2023 Lab Requisition [facility] MAIN LAB [address] [place] [phone] Alan Davenport MD 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 Gender Identity Male 07/02/2021 2:37 PM CDT [...] Appointment [facility] MRI [address] [place] [address] Thomas Mendoza MD [address] [place] [address] 2L [place] [address] 08/04/2024 1:30 PM CDT Office Visit [facility] - Urology [address] [place] [address] Thomas Mendoza MD [address] [place] [address] 2L [place] [address] 09/13/2024 10:40 AM CDT Office Visit [facility] - Endocrinology [address] [place] [address], [place] [address] Niraj Turner MD [address] [place] [address] 2L [place] [address] 10/13/2024 1:00 PM CDT Office Visit [facility] - Cardiology [address] [facility] [place] [address] [place] [address] Maylin Cutler DO [address] [facility] [address] [place] [address] Scheduled Procedures Name Priority Associated Diagnoses Date/Ti me CCL STAGED PERC CORONARY INTERVENTION Abnormal stress test Dyspnea on exertion Pre-kidney transplant, listed Coronary artery disease with angina pectoris, unspecified vessel or lesion type, unspecified whether [place] or transplanted heart Abnormal findings on cardiac catheterization documented as of this encounter Procedures Procedure Name Priority Date/Time Associated Diagnosis Comments HOLD HLA SPECIMEN Routine 07/23/2023 2:0 5 PM CDT documented in this encounter Results * HOLD HLA SPECIMEN (07/23/2023 2:05 PM CDT) Hold HLA Specimen 07/31/2023 3:32 PM CDT [facility] ([facility]) Comment:The Hold HLA specime n has been received into the lab and will be held for 5 years at 4 degrees. Blood BLOOD SPECIMEN / Unknown 07/23/2023 2:05 PM CDT 07/31/2023 2:06 PM CDT Alan Davenport MD LAB - BLOOD BANK ORDERABLES F inal Result [facility] ([facility]) [address] documented in this encounter Visit Diagnoses Not on filedocumented in this encounter Care Teams Distillery Laborer Relationship Specialty Start Date End Date Jeff Strickland MD [address] [place] [address] PCP - General 03/05/18 [place] [address] [place] [address] Orthopedic Surgery 03/28/17 documented as of this encounter
--- OUTSIDE RECORDS SUMMARY | 2024-07-24 21:09 | XMS_ITS | Encounter Summary ---
Author Organization [facility] Address [facility] [place] [address] Care Team Providers Care Senior Report Developer Name Role Phone Deandre Bojorquez MD Unavailable [phone] Jeff Strickland MD Primary Care Provider [phone] Encounter Details Date Type Department Care Team (Late st Contact Info) Description 02/04/2024 Lab Requisition [facility] MAIN LAB [address] [place] [phone] Alan Davenport MD [facility] [place] [address] Social History Tobacco Use Types Packs/Day Years Used Date Smoking Tobacco: Never Smokeless Tobacco: Never Alcohol Use Standard Drinks/Week Comments Not Currently 0 (1 standard drink = 0.6 oz pur e alcohol) socially in past Sex and Gender Information Value Date Recorded Sex Assigned at Male 07/02/2021 2:37 PM CDT 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 - Urology [address] [place] [address] Thomas Mendoza MD [address] [place] [address] 2L [place] [address] 09/13/2024 10:40 AM CDT Office Visit [facility] - Endocrinology [address] [place] [address], [place] [address] Niraj Turner MD [address] [place] [address] 2L [place] [address] 10/13/2024 1:00 PM CDT Office Visit [facility] - Cardiology [address] [facility] [place] [address] [place] [address] Maylin Cutler DO [address] [facility] [address] [place] [address] Scheduled Procedures Name Priority Associated Diagnoses Date/Ti me CCL STAGED PERC CORONARY INTERVENTION Abnormal stress test Dyspnea on exertion Pre-kidney transplant, listed Coronary artery disease with angina pectoris, unspecified vessel or lesion type, unspecified whether nikolai or transplanted heart Abnormal findings on cardiac catheterization documented as of this encounter Procedures Procedure Name Priority Date/Time Associated Diagnosis Comments HOLD HLA SPECIMEN Routine 01/27/2024 3:2 3 PM MEDIA RELATIONS ASSOCIATE documented in this encounter Results * HOLD HLA SPECIMEN (01/27/2024 3:23 PM MEDIA RELATIONS ASSOCIATE) Hold HLA Specimen 02/04/2024 4:31 PM MEDIA RELATIONS ASSOCIATE [facility] Comment:The Hold HLA specime n has been received into the lab and will be held for 5 years at 4 degrees. Blood BLOOD SPECIMEN / Unknown 01/27/2024 3:23 PM MEDIA RELATIONS ASSOCIATE 02/04/2024 3:23 PM MEDIA RELATIONS ASSOCIATE Alan Davenport MD LAB - BLOOD BANK ORDERABLES F inal Result [facility] [address] documented in this encounter Visit Diagnoses Not on filedocumented in this encounter Care Teams Senior Report Developer Relationship Specialty Start Date End Date Jeff Strickland MD [address] [place] [address] PCP - General 03/05/18 [place] [address] [place] [address] Orthopedic Surgery 03/28/17 documented as of this encounter
--- OUTSIDE RECORDS SUMMARY | 2024-07-24 21:09 | XMS_ITS ---
Author Organization [facility] Address [address] [facility] [place] [address] Care Team Providers Care Pump Tender Name Role Phone Deandre Bojorquez MD Unavailable [phone] Jeff Strickland MD Primary Care Provider [phone] Transplant Episode Kidney Candidate [facility] ([place], [place]) - [facility] Center waitlisted on 05/06/2022 Marked as Inactive on 12/19/2022 Reason: Temporarily too Sick Kidney CoordinatorSavanna Edwards RN Phone: N/A Fax: N/A Email: N/A Scores Score Value Updated Exceptions/Reas ons CPRA Not available EPTS (Calc) 95 07/24/2024 [place] Organ Diagnosis Organ Primary Contributory Kidney Diabetes Mellitus - Type II Hype rtensive Nephrosclerosis Care Team Name Role Phone Fax Email Savanna Edwards RN Kidney Coordinator N/A N/A N/A Alan Mccall MD Referring Physician [phone] N/A Anjali Mott LMSW Crime Data Specialist N/A N/A N/A Millie Lindquist Sewing Machine Operator Paper Bags N/A N/A N/A Events Pre-Transplant Referred: 12/05/2021 Evaluation began: 12/13/2021 Committee: 05/02/2022 UNOS qualified: 01/17/2020 Center waitlisted: 05/06/2022 Appointments (06/23/2024 - 08/23/2024) When With Visit Type Description 06/23/2024 Transplant Sl Education Transplant No Show Dialysis History Dialysis History Start End Type Comments Center 01/17/2020 Peritoneal [facility] Information Center Phone Fax Address [facility] [phone] [address] [place] [phone]
--- OUTSIDE RECORDS SUMMARY | 2024-07-24 21:09 | XMS_ITS | Encounter Summary ---
Author Organization [facility] Address [facility] [place] [address] Care Team Providers Care Deckhand Tuna Boat Name Role Phone Deandre Bojorquez MD Unavailable [phone] Jeff Strickland MD Primary Care Provider [phone] Encounter Details Date Type Department Care Team (Late st Contact Info) Description 04/10/2023 Lab Requisition [facility] MAIN LAB [address] [place] [phone] Alan Davenport MD [facility] [place] [address] Social History Tobacco Use Types Packs/Day Years Used Date Smoking Tobacco: Never Smokeless Tobacco: Never Alcohol Use Standard Drinks/Week Comments Not Currently 0 (1 standard drink = 0.6 oz pur e alcohol) socially in past Sex and Gender Information Value Date Recorded Sex Assigned at Male 07/02/2021 2:37 PM CDT 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 Gender Identity Male 07/02/2021 2:37 PM [...] Description 08/04/2024 11:30 AM CDT Appointment [facility] MRI [address] [place] [address] Thomas Mendoza MD [address] [place] [address] 2L [place] [address] 08/04/2024 1:30 PM CDT Office Visit [facility] - Urology [address] [place] [address] Thomas Mendoza MD [address] [place] [address] 2L [place] [address] 09/13/2024 10:40 AM CDT Office Visit [facility] - Endocrinology [address] [place] [address], [place] [address] Niraj Turner MD [address] [place] [address] 2L [place] [address] 10/13/2024 1:00 PM CDT Office Visit [facility] - Cardiology [address] [facility] [place] [address] [place] [address] Maylin Cutler DO [address] [facility] [address] [place] [address] Scheduled Procedures Name Priority Associated Diagnoses Date/Ti me CCL STAGED PERC CORONARY INTERVENTION Abnormal stress test Dyspnea on exertion Pre-kidney transplant, listed Coronary artery disease with angina pectoris, unspecified vessel or lesion type, unspecified whether [place] or transplanted heart Abnormal findings on cardiac catheterization documented as of this encounter Procedures Procedure Name Priority Date/Time Associated Diagnosis Comments HOLD HLA SPECIMEN Routine 04/02/2023 3:0 1 PM ARM MAKER documented in this encounter Results * HOLD HLA SPECIMEN (04/02/2023 3:01 PM ARM MAKER) Hold HLA Specimen 04/10/2023 4:01 PM ARM MAKER [facility] Comment:The Hold HLA specime n has been received into the lab and will be held for 5 years at 4 degrees. Blood BLOOD SPECIMEN / Unknown 04/02/2023 3:01 PM ARM MAKER 04/10/2023 3:01 PM ARM MAKER Alan Davenport MD LAB - BLOOD BANK ORDERABLES F inal Result [facility] [address] documented in this encounter Visit Diagnoses Not on filedocumented in this encounter Care Teams Deckhand Tuna Boat Relationship Specialty Start Date End Date Jeff Strickland MD [address] [place] [address] PCP - General 03/05/18 [place] [address] [place] [address] Orthopedic Surgery 03/28/17 documented as of this encounter
--- OUTSIDE RECORDS SUMMARY | 2024-07-24 21:09 | XMS_ITS | Encounter Summary ---
Author Organization [facility] Address [facility] [place] [address] Care Team Providers Care Linen Attendant Name Role Phone Deandre Bojorquez MD Unavailable [phone] Jeff Strickland MD Primary Care Provider [phone] Encounter Details Date Type Department Care Team (Late st Contact Info) Description 04/29/2024 Lab Requisition [facility] MAIN LAB [address] [place] [phone] Alan Davenport MD [facility] [place] [address] Social History Tobacco Use Types Packs/Day Years Used Date Smoking Tobacco: Never Smokeless Tobacco: Never Alcohol Use Standard Drinks/Week Comments Not Currently 0 (1 standard drink = 0.6 oz pur e alcohol) socially in past Sex and Gender Information Value Date Recorded Sex Assigned at Male 07/02/2021 2:37 PM CDT 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 - Urology [address] [place] [address] Thomas Mendoza MD [address] [place] [address] 2L [place] [address] 09/13/2024 10:40 AM CDT Office Visit [facility] - Endocrinology [address] [place] [address], [place] [address] Niraj Turner MD [address] [place] [address] 2L [place] [address] 10/13/2024 1:00 PM CDT Office Visit [facility] - Cardiology [address] [facility] [place] [address] [place] [address] Maylin Cutler DO [address] [facility] [address] [place] [address] Scheduled Procedures Name Priority Associated Diagnoses Date/Ti me CCL STAGED PERC CORONARY INTERVENTION Abnormal stress test Dyspnea on exertion Pre-kidney transplant, listed Coronary artery disease with angina pectoris, unspecified vessel or lesion type, unspecified whether [place] or transplanted heart Abnormal findings on cardiac catheterization documented as of this encounter Procedures Procedure Name Priority Date/Time Associated Diagnosis Comments HOLD HLA SPECIMEN Routine 04/27/2024 1:4 8 PM CDT documented in this encounter Results * HOLD HLA SPECIMEN (04/27/2024 1:48 PM CDT) Hold HLA Specimen 04/29/2024 3:02 PM CDT [facility] Comment:The Hold HLA specime n has been received into the lab and will be held for 5 years at 4 degrees. Blood BLOOD SPECIMEN / Unknown 04/27/2024 1:48 PM CDT 04/29/2024 1:49 PM CDT Alan Davenport MD LAB - BLOOD BANK ORDERABLES F inal Result [facility] ([facility]) [address] documented in this encounter Visit Diagnoses Not on filedocumented in this encounter Care Teams Linen Attendant Relationship Specialty Start Date End Date Jeff Strickland MD [address] [place] [address] PCP - General 03/05/18 [place] [address] [place] [address] Orthopedic Surgery 03/28/17 documented as of this encounter
--- OUTSIDE RECORDS SUMMARY | 2024-07-24 21:09 | XMS_ITS | Encounter Summary ---
Author Organization [facility] Address [facility] [place] [address] Care Team Providers Care Draft Roller Picker Name Role Phone Deandre Bojorquez MD Unavailable [phone] Jeff Strickland MD Primary Care Provider [phone] Encounter Details Date Type Department Care Team (Late st Contact Info) Description 06/25/2024 Lab Requisition [facility] MAIN LAB [address] [place] [address] Alan Davenport MD [facility] [place] [address] Social History Tobacco Use Types Packs/Day Years Used Date Smoking Tobacco: Never Smokeless Tobacco: Never Alcohol Use Standard Drinks/Week Comments Not Currently 0 (1 standard drink = 0.6 oz pur e alcohol) socially in past Sex and Gender Information Value Date Recorded Sex Assigned at Male 07/02/2021 2:37 PM CDT 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 Gender Identity Male 07/02/2021 2:37 PM CDT [...] CDT Appointment [facility] MRI [address] [place] [address] Thomas Mendoza MD [address] [place] [address] 2L [place] [address] 08/04/2024 1:30 PM CDT Office Visit [facility] - Urology [address] [place] [address] Thomas Mendoza MD [address] [place] [address] 2L [place] [address] 09/13/2024 10:40 AM CDT Office Visit [facility] - Endocrinology [address] [place] [address], [place] [address] Niraj Turner MD [address] [place] [address] 2L [place] [address] 10/13/2024 1:00 PM CDT Office Visit [facility] - Cardiology [address] [facility] [place] [address] [place] [address] Maylin Cutler DO [address] [facility] [address] [place] [address] Scheduled Procedures Name Priority Associated Diagnoses Date/Ti me CCL STAGED PERC CORONARY INTERVENTION Abnormal stress test Dyspnea on exertion Pre-kidney transplant, listed Coronary artery disease with angina pectoris, unspecified vessel or lesion type, unspecified whether [place] or transplanted heart Abnormal findings on cardiac catheterization documented as of this encounter Procedures Procedure Name Priority Date/Time Associated Diagnosis Comments HOLD HLA SPECIMEN Routine 06/22/2024 11: 05 AM CDT documented in this encounter Results * HOLD HLA SPECIMEN (06/22/2024 11:05 AM CDT) Hold HLA Specimen 06/25/2024 12:32 PM CDT [facility] ([facility]) Comment:The Hold HLA specime n has been received into the lab and will be held for 5 years at 4 degrees. Blood BLOOD SPECIMEN / Unknown 06/22/2024 11:05 AM CDT 06/25/2024 11:05 AM CDT Alan Davenport MD LAB - BLOOD BANK ORDERABLES F inal Result [facility] ([facility] [address] documented in this encounter Visit Diagnoses Not on filedocumented in this encounter Care Teams Draft Roller Picker Relationship Specialty Start Date End Date Jeff Strickland MD [address] [place] [address] PCP - General 03/05/18 [place] [address] [place] [address] Orthopedic Surgery 03/28/17 documented as of this encounter
--- OUTSIDE RECORDS SUMMARY | 2024-07-24 21:09 | XMS_ITS | Patient Health Record ---
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 He denies tobacco, alcohol, or illicit drug abuse The patient is retired. He p reviously worked as a [employer] worker. 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 He denies tobacco, alcohol, or illicit drug abuse The patient is retired. He p reviously worked as a [employer] worker. 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 He denies tobacco, alcohol, or illicit drug abuse The patient is retired. He p reviously worked as a [employer] worker. 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 He denies tobacco, alcohol, or illicit drug abuse The patient is retired. He p reviously worked as a [employer] worker. 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 He denies tobacco, alcohol, or illicit drug abuse The patient is retired. He p reviously worked as a [employer] worker. 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 He denies tobacco, alcohol, or illicit drug abuse The patient is retired. He p reviously worked as a [employer] worker. 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 He denies tobacco, alcohol, or illicit drug abuse The patient is retired. He p reviously worked as a [employer] worker. 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 He denies tobacco, alcohol, or illicit drug abuse The patient is retired. He p reviously worked as a [employer] worker. 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 He denies tobacco, alcohol, or illicit drug abuse The patient is retired. He p reviously worked as a [employer] worker. 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 He denies tobacco, alcohol, or illicit drug abuse The patient is retired. 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 He denies tobacco, alcohol, or illicit drug abuse The patient is retired. He p reviously worked as a [employer] worker. 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 He denies tobacco, alcohol, or illicit drug abuse The patient is retired. 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 He denies tobacco, alcohol, or illicit drug abuse The patient is retired. 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) Active confirmed Localized, primary osteoarthritis of the shoulder region (699635760) Problem Pain in left hip (M25.552) Active confirmed Pain of left hi p joint (finding) (601708887563811) Problem Spondylosis without myelopathy or radiculopathy, lumbar region (M47.816) Active confirmed Lumbosacral spondylosis without myelopathy (20616305) Problem Other intervertebral disc degeneration, lumbar region (M51.36) Active confirmed Degeneration of lumbar intervertebral disc (86925791) Problem Radiculopathy, lumbar region (M54.16) Active confirmed Lumbar radiculopathy (333823615) Problem Radiculopathy, lumbosacral region (M54.17) Active confirmed Lumbosacral radiculopathy (3450933) Problem Osseous stenosis of neural canal of lumbar region (M99.33) Active confirmed Spinal stenosis of lumbar region (27456517) Problem 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) Active confirmed Long-term curre nt use of anticoagulant (074219016) Problem Other intervertebral disc degeneration, lumbar region [...] Location Date Provider Diagnosis [facility] [address] [place] [address] 09/29/2023 Sergio Stynowick Radiculopathy, lumba r region M54.16 ; Other chest pain R07.89 ; Other intervertebral disc degeneration, lumbar region M51.36 ; 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 ; Spondylosis without myelopathy or radiculopathy, lumbar region M47.816 and rodent exterminator (current) use of anticoagulants Z79.01 [facility] [address] [place] [address] 01/12/2024 Sergio Stynowick Radiculopathy, lumba r region M54.16 ; Radiculopathy, lumbosacral region M54.17 ; Other chest pain R07.89 ; Other intervertebral disc degeneration, lumbar region M51.36 ; 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 ; Spondylosis without myelopathy or radiculopathy, lumbar region M47.816 and [facility] (current) use of anticoagulants Z79.01 [facility] [address] [place] [address] 01/19/2024 Sergio Stynowick Radiculopathy, lumba r region M54.16 ; Other intervertebral disc degeneration, lumbar region with discogenic back pain and lower extremity pain M51.362 and 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 [facility] [address] [place] [address] 02/03/2024 Sergio Rivera Other chest pain R07.89 ; Pain in left knee M25.562 ; Radiculopathy, lumbar region M54.16 ; Other intervertebral disc degeneration, lumbar region M51.36 ; 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 ; Spondylosis without myelopathy or radiculopathy, lumbar region M47.816 and rodent exterminator (current) use of anticoagulants Z79.01 [facility] [address] [place] [address] 03/03/2024 Sergio Stradha Pain in left knee [...] in left shoulder M25.512 [facility] [address] [place] [address] 03/08/2024 Sergio Rivera Primary osteoarthritis, unspecified shoulder M19.019 [facility] [address] [place] [address] 03/31/2024 Sergio Rivera ASSESSMENTS Encounter Date Diagnosis Assessment Notes Treatment Notes Treatment Clinical Notes Section Notes 09/29/2023 Radiculopathy, lumbar region (ICD-10 - [...] radiculopathy, lumbar region (ICD-10 - M47.816) 09/29/2023 rodent exterminator (current) use of anticoagulants (ICD-10 - Z79.01) 01/12/2024 Spondylosis without myelopathy or radiculopathy, lumbar region (ICD-10 - M47.816) 02/03/2024 Spondylosis without myelopathy or radiculopathy, lumbar region (ICD-10 - M47.816) 03/03/2024 Osseous stenosis of neural canal of lumbar region (ICD-10 - M99.33) 01/12/2024 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 I made the patient aware that he will be at an increased risk for a thromboembolic event during this time and he is willing to accept this risk. The patient was instructed to notify his primary care physician and/or technical project coordinator to obtain clearance prior to discontinuing this medication. 02/03/2024 [facility] (current) use of [...] Coverage End Date [employer] MED[employer]ARE [address] [place] [address] [id number] GRACE INTERIANO Self - patient is the insured MEDICAL (GENERAL) HISTORY Medical History History ICD Code Hypertension Hypothyroidism Diabetes type 2 Gastroesophageal reflux disease (GERD) Renal cell cancer Chronic kidney disease stage 4 Sleep apnea CHF Surgical History Surgery Date(Month/Year) Right total knee arthroplasty 08/2015 Cholecystectomy Hernia repair 2019 Cardiac stent 07/2020
--- OUTSIDE RECORDS SUMMARY | 2024-07-24 21:09 | XMS_ITS ---
Author Organization [facility] Address [address] [facility] [place] [address] Care Team Providers Care Batch Room Technician Name Role Phone DONNIE WOOD MD Primary Care Provider Unavaila Sergio Trujillo Unavailable [phone] Encounters Encounter Location Date Provider Diagnosis [facility] [address] [facility] [place] [address] [place] [address] 03/31/2024 Sergio Rivera PLAN OF TREATMENT No Information
--- OUTSIDE RECORDS SUMMARY | 2024-07-24 21:09 | XMS_ITS | Encounter Summary ---
Author Organization [facility] Address [address] [place] [address] Care Team Providers Care Manager Database Name Role Phone Deandre Bojorquez MD Unavailable [phone] Jeff Strickland MD Primary Care Provider [phone] Encounter Details Date Type Department Care Team (Late st Contact Info) Description 06/17/2024 Results Follow-Up [facility] [address] [place] [id number] Savanna Edwards RN Social History Tobacco Use Types Packs/Day Years Used Date Smoking Tobacco: Never Smokeless Tobacco: Never Alcohol Use Standard Drinks/Week Comments Not Currently 0 (1 standard drink = 0.6 oz pur e alcohol) socially in past Sex and Gender Information Value Date Recorded Sex Assigned at Male 07/02/2021 2:37 PM CDT Legal Sex Male 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 Gender Identity Male 07/02/2021 2:37 PM CDT [...] Info) Description 08/04/2024 11:30 AM CDT Appointment [facility] [address] [place] [address] Thomas Mendoza MD [address] [place] [address] [address] [place] [address] 08/04/2024 1:30 PM CDT Office Visit [facility] - Urology [address] [place] [id number] Thomas Mendoza MD [address] [facility] [address] [place] [address] 09/13/2024 10:40 AM CDT Office Visit [facility] - Endocrinology [address] [facility] [place] [address] Niraj Turner MD [address] [facility] 2L [place] [address] 10/13/2024 1:00 PM CDT Office Visit [facility] - Cardiology [address] [facility] [address] [place] [address] Maylin Cutler R, DO [address] [facility] [facility] [address] [place] [address] Scheduled Procedures Name Priority Associated Diagnoses Date/Ti me CCL STAGED PERC CORONARY INTERVENTION Abnormal stress test Dyspnea on exertion Pre-kidney transplant, 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
--- OUTSIDE RECORDS SUMMARY | 2024-07-24 21:09 | XMS_ITS | Clinical Summary ---
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 Coronary artery disease involving [place] coronary artery of [place] heart, unspecified whether angina present AMPHETAMINE BLOOD CONFIRMATION Routine 06/16/2024 4:15 PM CDT Pre-kidney transplant, listed ESRD (end stage renal disease) (HCC) 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, without long-term current use of insulin ([facility]) Hypertension, unspecified type Oncocytoma Kidney stones [place] on CPAP Coronary artery disease involving [place] coronary artery of [place] heart, unspecified whether angina present NICOTINE + METABOLITES BLOOD Routine 06/16/2024 4:15 PM CDT Pre-kidney transplant, listed ESRD (end stage renal disease) (HCC) 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, without long-term current use of insulin ([facility]) Hypertension, unspecified type Oncocytoma Kidney stones SH[place] on CPAP Coronary artery disease involving [place] coronary artery of [place] heart, unspecified whether angina present SYPHILIS ANTIBODY CASCADING REFLEX Routine 06/16/2024 4:15 PM CDT Pre-kidney transplant, listed ESRD (end stage renal disease) (HCC) 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, without long-term current use of insulin ([facility]) Hypertension, unspecified type Oncocytoma Kidney stones SHAB[place] on CPAP Coronary artery disease involving [place] coronary artery of [place] heart, unspecified whether angina present CYTOMEGALOVIRUS ANTIBODY IGG BLOOD Routine 06/16/2024 4:15 PM CDT Pre-kidney transplant, listed ESRD (end stage renal disease) (HCC) 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, without long-term current use of insulin ([facility]) Hypertension, unspecified type Oncocytoma Kidney stones [place] on CPAP Coronary artery disease involving [place] coronary artery of [place] heart, unspecified whether angina present HEPATITIS A ANTIBODY Routine 06/16/2024 4:15 PM CDT Pre-kidney transplant, listed ESRD (end stage renal disease) (HCC) 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, without long-term current use of insulin (HCC) Hypertension, unspecified type Oncocytoma Kidney stones SHAB[place] on CPAP Coronary artery disease involving [place] coronary artery of [place] heart, unspecified whether angina present HEPATITIS C ANTIBODY Routine 06/16/2024 4:15 PM CDT Pre-kidney transplant, listed ESRD (end stage renal disease) (HCC) 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, without long-term current use of insulin (HCC) Hypertension, unspecified type Oncocytoma Kidney stones SHAB[place] on CPAP Coronary artery disease involving [place] coronary artery of [place] heart, unspecified whether angina present HEPATITIS B CORE ANTIBODY TOTAL Routine 06/16/2024 4:15 PM CDT Pre-kidney transplant, listed ESRD (end stage renal disease) (HCC) 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, without long-term current use of insulin (HCC) Hypertension, unspecified type Oncocytoma Kidney stones SHAB[place] on CPAP Coronary artery disease involving [place] coronary artery of [place] heart, unspecified whether angina present HEPATITIS B SURFACE ANTIGEN W RFLX CONFIRMATION Routine 06/16/2024 4:15 PM CDT Pre-kidney transplant, listed ESRD (end stage renal disease) (HCC) 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, without long-term current use of insulin (HCC) Hypertension, unspecified type Oncocytoma Kidney stones SHAB[place] on CPAP Coronary artery disease involving [place] coronary artery of [place] heart, unspecified whether angina present PTH INTACT W/O CALCIUM Routine 4:15 PM CDT Pre-kidney transplant, listed ESRD (end stage renal disease) (HCC) 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, without long-term current use of insulin (HCC) Hypertension, unspecified type Oncocytoma Kidney stones SHAB[place] on CPAP Coronary artery disease involving [place] coronary artery of [place] heart, unspecified whether angina present PHOSPHORUS BLOOD Routine 06/16/2024 4:15 PM CDT Pre-kidney transplant, listed ESRD (end stage renal disease) (HCC) 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, without long-term current use of insulin (HCC) Hypertension, unspecified type Oncocytoma Kidney stones [place] on CPAP Coronary artery disease involving [place] coronary artery of [place] heart, unspecified whether angina present IRON BLOOD Routine 06/16/2024 4:15 PM CDT Pre-kidney transplant, listed ESRD (end stage renal disease) (HCC) 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, without long-term current use of insulin (HCC) Hypertension, unspecified type Oncocytoma Kidney stones SHAB[place] on CPAP Coronary artery disease involving [place] coronary artery of [place] heart, unspecified whether angina present FERRITIN Routine 06/16/2024 4:15 PM CDT Pre-kidney transplant, listed ESRD (end stage renal disease) (HCC) 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, without long-term current use of insulin (HCC) Hypertension, unspecified type Oncocytoma Kidney stones SHAB[place] on CPAP Coronary artery disease involving [place] coronary artery of [place] heart, unspecified whether angina present TRANSFERRIN Routine 06/16/2024 4:15 PM CDT Pre-kidney transplant, listed ESRD (end stage renal disease) (HCC) 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, without long-term current use of insulin (HCC) Hypertension, unspecified type Oncocytoma Kidney stones SHAB[place] on CPAP Coronary artery disease involving [place] coronary artery of [place] heart, unspecified whether angina present VITAMIN D 25-HYDROXY Routine 06/16/2024 4:15 PM CDT Pre-kidney transplant, listed ESRD (end stage renal disease) (HCC) 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, without long-term current use of insulin (HCC) Hypertension, unspecified type Oncocytoma Kidney stones SHAB[place] on CPAP Coronary artery disease involving [place] coronary artery of [place] heart, unspecified whether angina present URIC ACID BLOOD Routine 06/16/2024 4:15 PM CDT Pre-kidney transplant, listed ESRD (end stage renal disease) (HCC) 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, without long-term current use of insulin (HCC) Hypertension, unspecified type Oncocytoma Kidney stones [place] on CPAP Coronary artery disease involving [place] coronary artery of [place] heart, unspecified whether angina present CBC W AUTO DIFFERENTIAL Routine 06/17/19 4:15 PM CDT Pre-kidney transplant, listed ESRD (end stage renal disease) (HCC) 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, without long-term current use of insulin (HCC) Hypertension, unspecified type Oncocytoma Kidney stones SHAB[place] on CPAP Coronary artery disease involving [place] coronary artery of [place] heart, unspecified whether angina present HEMOGLOBIN A1C Routine 06/16/2024 4:15 PM CDT Atherosclerosis of [place] coronary artery of [place] heart without angina pectoris Hypertriglyceridemi a Type 2 diabetes mellitus with other specified complication, unspecified whether long term care social worker insulin use (HCC) LIPID PROFILE Routine 06/16/2024 4:15 PM CDT Atherosclerosis of [place] coronary artery of [place] heart without angina pectoris Hypertriglyceridemi a Type 2 diabetes mellitus with other specified complication, unspecified whether usp insulin use (HCC) COMPREHENSIVE METABOLIC PANEL Routine 06/16/2024 4:15 PM CDT Atherosclerosis of [place] coronary artery of [place] heart without angina pectoris Hypertriglyceridemi a Type 2 diabetes mellitus with other specified complication, unspecified whether usp insulin use (HCC) US THYROID Routine 06/16/2024 2:32 PM CDT Pre-kidney transplant, listed ESRD (end stage renal disease) (HCC) 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, without long-term current use of insulin (HCC) Hypertension, unspecified type Oncocytoma Kidney stones SHAB[place] on CPAP Coronary artery disease involving [place] coronary artery of [place] heart, unspecified whether angina present ECHO COMPLETE W CONTRAST Routine 06/16/2024 1:55 PM CDT Pre-kidney transplant, listed ESRD (end stage renal disease) (HCC) 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, without long-term current use of insulin ([facility]) Hypertension, unspecified type Oncocytoma Kidney stones [place] on CPAP Coronary artery disease involving [place] coronary artery of [place] heart, unspecified whether angina present XR CHEST 2VW Routine 06/16/2024 12:49 PM CDT Pre-kidney transplant, listed ESRD (end stage renal disease) (HCC) 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, without long-term current use of insulin ([facility]) Hypertension, unspecified type Oncocytoma Kidney stones SHAB[place] on CPAP Coronary artery disease involving [place] coronary artery of [place] heart, unspecified whether angina present CT ABDOMEN PELVIS WO CONTRAST Routine 06/16/2024 12:47 PM CDT Pre-kidney transplant, listed ESRD (end stage renal disease) (HCC) 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, without long-term current use of insulin ([facility]) Hypertension, unspecified type Oncocytoma Kidney stones SHAB[place] on CPAP Coronary artery disease involving [place] coronary artery of [place] heart, unspecified whether angina present NM MYOCARD PERF REST STRESS Routine 06/16/2024 12:44 PM CDT Pre-kidney transplant, listed ESRD (end stage renal disease) (HCC) 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, without long-term current use of insulin ([facility]) Hypertension, unspecified type Oncocytoma Kidney stones SHAB[place] on CPAP Coronary artery disease involving [place] coronary artery of [place] heart, unspecified whether angina present STRESS TEST Routine 06/16/2024 11:55 AM CDT Pre-kidney transplant, listed ESRD (end stage renal disease) (HCC) 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, without long-term current use of insulin ([facility]) Hypertension, unspecified type Oncocytoma Kidney stones SHAB[place] on CPAP Coronary artery disease involving [place] coronary artery of [place] heart, unspecified whether angina present HOLD HLA SPECIMEN Routine 04/27/2024 1:4 8 PM CDT HEMOGLOBIN A1C 04/23/2024 12:24 PM CHANNELER COMPREHENSIVE METABOLIC PANEL 04/23/2024 12:24 PM CHANNELER LIPID PROFILE 04/23/2024 12:24 PM CHANNELER from Last 3 Months Results * EKG 12-LEAD (07/21/2024 10:40 AM CDT) Ventricular Rate 52 BPM [facility] MUSE Atrial Rate 52 BPM [facility] MUSE P-R Interval 172 ms [facility] MUSE QRS Duration ms 112 ms [facility] MUSE Q-T Interval ms 550 ms [facility] MUSE QTC Calculation (Bezet) 511 ms [facility] MUSE Calculated P [place] 73 degrees SL MUSE Calculated R [place] -55 degrees SL MUSE Calculated T [place] -56 degrees [facility] MUSE Interpretation EKG SINUS BRADYCARDIA LEFT ANTERIOR FASCICULAR BLOCK NONSPECIFIC T WAVE ABNORMALITY PROLONGED QT ABNORMAL ECG NO PREVIOUS ECGS AVAILABLE Confirmed by МАРИНА CARRERA MD ([id number]) on 07/21/2024 3:29:58 PM [facility] MUSE 07/21/2024 10:4 0 AM CDT 07/21/2024 3:29 PM CDT Jaqueline Crews INSIGHT LEADER-VENDING MACHINE TECHNICIAN ECG ORDERABLES Edited R esult - Final [facility] MUSE * (ABNORMAL) GLUCOSE - POINT OF CARE (07/21/2024 10:28 AM CDT) Glucose WB/POC 105(H) 70 - 99 mg/dL 07/21/2024 10:29 AM CDT [facility] Specimen Type Venous 07/21/2024 10:29 AM CDT [facility] Blood BLOOD SPECIMEN / Unknown 07/21/2024 10:28 AM CDT 07/21/2024 10:29 AM CDT us Vanessa Medina MD LAB - POINT OF CARE ORDERAB LES Final Result [facility] [address] [phone], [facility] [phone] * (ABNORMAL) CBC W/O DIFFERENTIAL (07/21/2024 10:26 AM CDT) [facility] WBC 7.7 4.0 - 10.7 x10E9/L 07/21/2024 10:43 AM [facility] RBC Count 2.93(L) 4.30 - 5.80 x10E12/L 07/21/2024 10:43 AM [facility] Hemoglobin 8.8(L) 13.3 - 17.5 g/dL 07/21/2024 10:43 AM [facility] Hematocrit 27.3(L) 38.7 - 51.1 % 07/21/2024 10:43 AM [facility] MCV 93.2 80.0 - 98.0 fL 07/21/2024 10:43 AM [facility] MCH 30.0 26.7 - 33.6 pg 07/21/2024 10:43 AM [facility] MCHC 32.2 31.7 - 36.3 g/dL 07/21/2024 10:43 AM [facility] RDW-CV 16.4(H) 11.3 - 14.8 % 07/21/2024 10:43 AM [facility] Platelet Count 156 150 - 420 x10E9/L 07/21/2024 10:43 AM [facility] MPV 10.3 7.8 - 11.4 fL 07/21/2024 10:43 AM [facility] Blood BLOOD SPECIMEN / Unknown Venipuncture / Unknown 07/21/2024 10:26 AM CDT 07/21/2024 10:32 AM CDT us Jaqueline Crews INSIGHT LEADER-VENDING MACHINE TECHNICIAN LAB - HEMATOLOGY ORDERAB LES Final Result [facility] [address] [place] [address], [facility] [phone] * (ABNORMAL) BASIC METABOLIC PANEL (CALCIUM TOTAL) (07/21/2024 10:26 AM CDT) BUN 32(H) 7 - 26 mg/dL 07/21/2024 11:12 AM [facility] Creatinine 8.71(H) 0.71 - 1.16 mg/dL 07/21/2024 11:12 AM [facility] Sodium 140 136 - 145 mmol/L 07/21/2024 11:12 AM [facility] Potassium 3.3(L) 3.5 - 4.5 mmol/L 07/21/2024 11:12 AM [facility] Chloride 101 98 - 107 mmol/L 07/21/2024 11:12 AM [facility] CO2 27 22 - 29 mmol/L 07/21/2024 11:12 AM [facility] Glucose 93 70 - 99 mg/dL 07/21/2024 11:12 AM [facility] Calcium 8.4 8.4 - 10.2 mg/dL 07/21/2024 11:12 AM [facility] Anion Gap 12 6 - 16 07/21/2024 11:12 AM [facility] BUN/Creatinine Ratio 4(L) 7 - 23 07/21/2024 11:12 AM [facility] Osmolality Calculated 297(H) 275 - 295 mOsm/kg 07/21/2024 11:12 AM [facility] eGFR by CKD-EPI 6(L) >=90 mL/min/1.7 3 m2 07/21/2024 11:12 AM [facility] Blood BLOOD SPECIMEN / Unknown Venipuncture / Unknown 07/21/2024 10:26 AM CDT 07/21/2024 10:32 AM T us Jaqueline Crews INSIGHT LEADER-VENDING MACHINE TECHNICIAN LAB - CHEMISTRY ORDERABL ES Final Result [address] [id number] [phone] * CARDIAC EKG ORDER (06/22/2024 12:07 PM CDT) Narrative 06/22/2024 12:07 PM CDT Ordered by an unspecified provider. Scanned Document CARDIAC SERVICES ORDERABLES Fin al Result * HOLD HLA SPECIMEN (06/22/2024 11:05 AM CDT) Only the most recent of2 resultswithin the time period is included. Hold HLA Specimen 06/25/2024 12:32 PM CDT [facility] ([facility]) Comment:The Hold HLA specime n has been received into the lab and will be held for 5 years at 4 degrees. Blood BLOOD SPECIMEN / Unknown 06/22/2024 11:05 AM CDT 06/25/2024 11:05 AM CDT Alan Davenport MD LAB - BLOOD BANK ORDERABLES F inal Result [facility] ([facility]) [address] [place] [address] * HEPATITIS B SURFACE ANTIBODY QUANT (06/16/2024 4:17 PM CDT) [facility] Hepatitis B Virus Surface Antibody Non-react sylvie Non-react sylvie 06/16/2024 6:02 PM CDT [facility] Comment: < 8 mIU/mL Hepatitis B surface Antibody (HBsAb). Nonreactive for HBsAb - individual is considered not immune to Hepatitis B Virus infection. Hepatitis B Surface Antibody Quantitative <3.0 <8.0 mIU/mL 06/16/2024 6:02 PM CDT [facility] Comment: Hepatitis B Surface Antibody Numeric Result Interpretation: Nonreactive: <8.0 mIU/mL Indeterminate: 8.0 - 12.0 mIU/mL Reactive: >12.0 mIU/mL Blood BLOOD SPECIMEN / Unknown Lab Venipuncture / Unknown 06/16/2024 4:17 PM CDT 06/16/2024 5:14 PM CDT Narrative [facility] - 06/16/2024 6:02 PM CDT This assay should not be used for blood, plasma, or tissue donor screening. This assay is not recommended for neonates born to HBV-infected or suspected HBV-infected mothers. Alan Davenport MD LAB - SEROLOGY ORDERABLES Fin al Result Performing Organization Address [facility] Co de Phone Number [facility] [address] [place] [address], [facility] [phone] * COCAINE METABOLITE QUANT (06/16/2024 4:15 PM CDT) Pathologist [facility] Cocaine and Metabolite Blood <20 ng/mL 06/21/2024 9:00 AM CDT [facility] ([facility]) Comment: INTERPRETIVE INFORMATION: Cocaine Metabolite, Serum or Plasma, Quantitative Methodology: Quantitative Liquid Chromatography-Tandem Mass Spectrometry Positive cutoff: 20 ng/mL For medical purposes only; not valid for forensic use. The concentration value must be greater than or equal to the cutoff to be reported as positive. Interpretive questions should be directed to the laboratory. This test was developed and its performance characteristics determined by [facility]. It has not been cleared or approved by the [place] Food and Drug Administration. This test was performed in a CLIA certified laboratory and is intended for clinical purposes. Performed By: [facility] [address] [place] [address] Radiation Control Technician: kM Egan MD, PhD CLIA Number: [id number] Blood BLOOD SPECIMEN / Unknown Lab Venipuncture / Unknown 06/16/2024 4:15 PM CDT 06/16/2024 5:17 PM CDT Alan Davenport MD LAB - CHEMISTRY ORDERABLES Fi nal Result Performing Organization Address [facility] Co de Phone Number [facility] [employer] [facility]) [address] [place] [address] * SYPHILIS ANTIBODY CASCADING REFLEX (06/16/2024 4:15 PM CDT) Treponema pallidum Antibody Non-react sylvie Non-react sylvie 06/16/2024 5:49 PM CDT [facility] Comment: No Laboratory evidence of syphilis infection. Note: Circulating antibodies may be low or undetectable in early infection. If recent exposure is suspected, re-draw sample in 2-4 weeks and repeat testing. Blood BLOOD SPECIMEN / Unknown Lab Venipuncture / Unknown 06/16/2024 4:15 PM CDT 06/16/2024 5:15 PM CDT us Alan Davenport MD LAB - SEROLOGY ORDERABLES Fin al Result [facility] [address] [place] [phone], [facility] [phone] * AMPHETAMINE BLOOD CONFIRMATION (06/16/2024 4:15 PM CDT) Pathologist [facility] Amphetamines Confirmation <20 ng/mL 06/23/2024 4:46 PM CDT [facility] ([facility]) Comment: INTERPRETIVE INFORMATION: Amphetamines, Serum or Plasma, [...] developed and its performance characteristics determined by [facility]. It has not been cleared or approved by the [place] Food and Drug Administration. This test was performed in a CLIA certified laboratory and is intended for clinical purposes. Methamphetamine Confirmation <20 ng/mL 06/23/2024 4:46 PM CDT [facility] ([facility]) MDA Confirmation <20 ng/mL 06/24/19 25 4:46 PM CDT [facility] ([facility]) MDMA Confirm <20 ng/mL 06/23/2024 4:46 PM CDT [facility] ([facility]) MDEA Confirmation <20 ng/mL 025 4:46 PM CDT [facility]) Comment: Performed By: [employer] [address] [place] [id number] Radiation Control Technician: Mk Egan MD, PhD CLIA Number: [id number] Blood BLOOD SPECIMEN / Unknown Lab Venipuncture / Unknown 06/16/2024 4:15 PM CDT 06/16/2024 5:16 PM CDT Alan Davenport MD LAB - CHEMISTRY ORDERABLES Fi nal Result [facility]) [address] [place] [address], [facility] * QUANTIFERON-TB GOLD PLUS 4-TUBE (06/16/2024 4:15 PM CDT) [facility] QuantiFERON Mitogen Minus NIL 9.96 IU/mL 06/18/2024 10:28 PM CDT [facility]) QuantiFERON Nil Value 0.04 IU/mL 06/18/2024 10:28 PM CDT [facility]) QuantiFERON Plus TB1 Minus NIL 0.00 <=0.34 IU/mL 06/18/2024 10:28 PM CDT [facility] ([facility]) QuantiFERON Plus TB2 Minus NIL 0.10 <=0.34 IU/mL 06/18/2024 10:28 PM CDT [facility] ([facility]) QuantiFERON-TB Gold Plus Negative Negative 06/18/2024 10:28 PM CDT [facility] ([facility]) Comment: INTERPRETIVE INFORMATION:Quantiferon TB Gold Plus Interferon gamma release is measured for specimens from each of the four collection tubes. A qualitative result (Negative, Positive, or Indeterminate) is based on interpretation of the four values: NIL, MITOGEN minus NIL (MITOGEN-NIL), TB1 minus [...] Release Assays to Detect Mycobacterium tuberculosis Infection -- [place], 2010 (http://www.cdc.gov/mmwr/preview/mmwrhtml/ox2981z3.htm), for more information concerning test performance in low-prevalence populations and use in occupational screening. Performed By: [address] [address] Radiation Control Technician: Mk Egan MD, PhD CLIA Number: [id number] Blood BLOOD SPECIMEN / Unknown Lab Venipuncture / Unknown 06/16/2024 4:15 PM CDT 06/16/2024 4:49 PM CDT us Alan Davenport MD LAB - CHEMISTRY ORDERABLES Fi nal Result Performing Organization Address [facility]/ZIP Co de Phone Number [facility]) [address] [place] [id number] * (ABNORMAL) PTH INTACT W/O CALCIUM (06/16/2024 4:15 PM CDT) PTH Intact 396.2(H) 8.0 - 77.0 pg/mL 06/16/2024 5:32 PM CDT [facility] Blood BLOOD SPECIMEN / Unknown Lab Venipuncture / Unknown 06/16/2024 4:15 PM CDT 06/16/2024 5:02 PM CDT us Alan Davenport MD LAB - CHEMISTRY ORDERABLES Fi nal Result Performing Organization Address City/[facility]/ZIP Co de Phone Number [address] [address], [facility] [phone] * (ABNORMAL) OXALATE BLOOD (06/16/2024 4:15 PM CDT) Oxalate 2.1(H) <=2.0 umol/L 06/21/2024 6:22 PM CDT [facility] ([facility]) Comment: INTERPRETIVE INFORMATION: Oxalate, Plasma This test was developed and its performance characteristics determined by [employer]. It has not been cleared or approved by the US Food and Drug Administration. This test was performed in a CLIA certified laboratory and is intended for clinical purposes. Performed By: [employer] [address] [place] [address] Radiation Control Technician: Mk Egan MD, PhD CLIA Number: [id number] Blood BLOOD SPECIMEN / Unknown Lab Venipuncture / Unknown 06/16/2024 4:15 PM CDT 06/16/2024 5:02 PM CDT Alan Davenport MD LAB - CHEMISTRY ORDERABLES Fi nal Result Performing Organization Address [facility] Co de Phone Number [facility] ([facility]) [address] [place], [place] [address] * HIV-1 HIV-2 ANTIBODY + HIV P24 AG PANEL (06/16/2024 4:15 PM CDT) [facility] HIV Antigen/Antibod y 1 & 2 Non-reacti ve Non-react sylvie 06/16/2024 5:50 PM CDT [facility] Comment:No Laboratory eviden ce of HIV infection. Blood BLOOD SPECIMEN / Unknown Lab Venipuncture / Unknown 06/16/2024 4:15 PM CDT 06/16/2024 5:15 PM CDT Alan Davenport MD LAB - CHEMISTRY ORDERABLES Fi nal Result Performing Organization Address [facility] Co de Phone Number [address] [address], [facility] [phone] * OPIATES BLOOD (06/16/2024 4:15 PM CDT) [facility] Opiates Screen Negative 06/24/2024 3:10 PM CDT [facility] ([facility]) Comment:REFERENCE RANGE: thr shold: 10 ng/mL Oxycodone Screen Negative 06/25/19 3:10 PM CDT [facility] ([facility]) Comment:REFERENCE RANGE: thr shold: 10 ng/mL Specimen Type Comment 06/24/2024 3:10 PM CDT [facility] ([facility]) Comment: WHOLE BLOOD This specimen was screened [...] SPECIMEN / Unknown Lab Venipuncture / Unknown 06/16/2024 4:15 PM CDT 06/16/2024 4:49 PM CDT Narrative [facility] ([facility]) - 06/24/2024 3:10 PM CDT Performed at: - [employer] [facility] [address] [place] [id number] [employer] Manager: Ev Camarena [facility], Phone: [phone] us Alan Davenport MD LAB - CHEMISTRY ORDERABLES Fi nal Result Performing Organization Address [facility]/ZIP Co de Phone Number [facility] [address] [place] [address] * URIC ACID BLOOD (06/16/2024 4:15 PM CDT) Uric Acid 5.7 3.5 - 7.2 mg/dL 06/16/2024 5:31 PM CDT [facility] Blood BLOOD SPECIMEN / Unknown Lab Venipuncture / Unknown 06/16/2024 4:15 PM CDT 06/16/2024 5:02 PM CDT us Alan Davenport MD LAB - CHEMISTRY ORDERABLES Fi nal Result Performing Organization Address City/[facility]/ZIP Co de Phone Number [address] [address], [facility] [phone] * STRONGYLOIDES ANTIBODY IGG (06/16/2024 4:15 PM CDT) Strongyloides Antibody IgG 0.1 <=0.9 IV 06/20/2024 11:18 PM CDT [facility] [employer] ([facility]) Comment: INTERPRETIVE INFORMATION: Strongyloides Ab, IgG by [...] also result in false-positive results. Performed By: [facility] [employer] [address] [place] [address] Radiation Control Technician: Mk Egan MD, PhD CLIA Number: [id number] Blood BLOOD SPECIMEN / Unknown Lab Venipuncture / Unknown 06/16/2024 4:15 PM CDT 06/16/2024 5:17 PM CDT Alan Davenport MD LAB - SEROLOGY ORDERABLES Fin al Result [facility]) [address] [place] [address] * CYTOMEGALOVIRUS ANTIBODY IGG BLOOD (06/16/2024 4:15 PM CDT) [facility] Cytomegalovirus Antibody IgG <0.20 <=0.70 U/mL 06/19/2024 6:14 AM CDT [facility] [employer] ([facility]) Comment: INTERPRETIVE INFORMATION: Cytomegalovirus Antibody, IgG 0.59 [...] laboratory at the same time. Performed By: [facility] [employer] [address] [place] [address] Radiation Control Technician: Mk Egan MD, PhD CLIA Number: [id number] Blood BLOOD SPECIMEN / Unknown Lab Venipuncture / Unknown 06/16/2024 4:15 PM CDT 06/16/2024 5:17 PM CDT us Alan Davenport MD LAB - CHEMISTRY ORDERABLES Fi nal Result Performing Organization Address [facility]/ZIP Co de Phone Number [facility]) [address] [place] [address] * TRANSFERRIN (06/16/2024 4:15 PM CDT) [facility] Transferrin 210 174 - 382 mg/dL 06/16/2024 5:30 PM CDT [facility] Blood BLOOD SPECIMEN / Unknown Lab Venipuncture / Unknown 06/16/2024 4:15 PM CDT 06/16/2024 5:15 PM CDT Alan Davenport MD LAB - CHEMISTRY ORDERABLES nal Result Performing Organization Address [facility] de Phone Number [address] [address], [facility] [phone] * TOXOPLASMA GONDII ANTIBODY IGG (06/16/2024 4:15 PM CDT) [facility] Toxoplasma Antibody IgG <3.0 <=8.8 IU/mL 06/18/2024 1:52 AM CDT [facility]) Comment: INTERPRETIVE INFORMATION: Toxoplasma Ab, IgG 7.1 [...] the amount of antibody present. Performed By: [employer] [address] [place] [address] Radiation Control Technician: Mk Egan MD, PhD CLIA Number: [id number] Blood BLOOD SPECIMEN / Unknown Lab Venipuncture / Unknown 06/16/2024 4:15 PM CDT 06/16/2024 5:16 PM CDT Alan Davenport MD LAB - CHEMISTRY ORDERABLES Fi nal Result [facility] ([facility]) [address] [place] [address], [facility] * (ABNORMAL) HEMOGLOBIN A1C (06/16/2024 4:15 PM CDT) Only the most recent of2 resultswithin the time period is included. Hemoglobin A1c 6.2(H) <=5.6 % 06/17/2024 8:05 AM [facility] Estimated Average Glucose 131 mg/dL 06/17/2024 8:05 AM [facility] Comment: HbA1c Interpretation: Normal : < 5.7% Pre-diabetes: 5.7-6.4% Diabetes: Equal to or greater than 6.5% Test results diagnostic of diabetes should be repeated for confirmation. Treatment target values recommended by ADA and other clinical organizations should be used to evaluate metabolic control in patients. Reference: [place] [employer], Standards of Care in Diabetes -2020 In patients 70 years and older consider HbA1c target range of 7.0-7.5% (Reference: [employer] et al. JAMDA. 2012) The Sebia assay for the measurement of HbA1c is a National Glycohemoglobin Standardization Program (NGSP) certified method. Blood BLOOD SPECIMEN / Unknown Lab Venipuncture / Unknown 06/16/2024 4:15 PM CDT 06/16/2024 5:02 PM CDT us Maylin Cutler DO LAB - CHEMISTRY ORDERABLES Fin al Result Performing Organization Address City/[facility]/ZIP Co de Phone Number [facility] [address] [place] [address], [place] [phone] * VITAMIN D 25-HYDROXY (06/16/2024 4:15 PM CDT) Vitamin D, 25 Hydroxy 45.1 30.0 - 80.0 ng/mL 06/16/2024 5:50 PM CDT [facility] Comment: The recommendations for 25-Hydroxy Vitamin [...] SPECIMEN / Unknown Lab Venipuncture / Unknown 06/16/2024 4:15 PM CDT 06/16/2024 5:02 PM CDT Alan Davenport MD LAB - CHEMISTRY ORDERABLES Fi nal Result Performing Organization Address [facility]/ZIP Co de Phone Number [facility] [address] [place] [address], [place] [phone] * NICOTINE + METABOLITES BLOOD (06/16/2024 4:15 PM CDT) Nicotine <5 ng/mL 06/19/2024 11:28 PM CDT [facility] ([facility]) Comment: INTERPRETIVE INFORMATION: Nicotine and Metabolites, Serum or [...] developed and its performance characteristics determined by [facility] [employer]. It has not been cleared or approved by the US Food and Drug Administration. This test was performed in a CLIA certified laboratory and is intended for clinical purposes. Performed By: [place] [address] Radiation Control Technician: Mk Egan MD, PhD CLIA Number: [id number] Cotinine <5 ng/mL 06/19/2024 11:28 PM CDT [facility]) Blood BLOOD SPECIMEN / Unknown Lab Venipuncture / Unknown 06/16/2024 4:15 PM CDT 06/16/2024 5:15 PM CDT Alan Davenport MD LAB - CHEMISTRY ORDERABLES nal Result [facility]) [address] [place] [address] * (ABNORMAL) CBC W AUTO DIFFERENTIAL (06/16/2024 4:15 PM CDT) WBC 10.8(H) 4.0 - 10.7 x10E9/L 06/16/2024 5:09 PM [facility] RBC Count 3.08(L) 4.30 - 5.80 x10E12/L 06/16/2024 5:09 PM [facility] Hemoglobin 9.5(L) 13.3 - 17.5 g/dL 06/16/2024 5:09 PM [facility] Hematocrit 28.6(L) 38.7 - 51.1 % 06/16/2024 5:09 PM [facility] MCV 92.9 80.0 - 98.0 fL 06/16/2024 5:09 PM [facility] MCH 30.8 26.7 - 33.6 pg 06/16/2024 5:09 PM T [facility] MCHC 33.2 31.7 - 36.3 g/dL 06/16/2024 5:09 PM [facility] RDW-CV 14.8 11.3 - 14.8 % 06/16/2024 5:09 PM [facility] Platelet Count 154 150 - 420 x10E9/L 06/16/2024 5:09 PM [facility] MPV 11.3 7.8 - 11.4 fL 06/16/2024 5:09 PM [facility] Neutrophil % 77.5(H) 41.0 - 74.0 % 06/16/2024 5:09 PM [facility] Lymphocyte % 10.0(L) 17.0 - 47.0 % 06/16/2024 5:09 PM [facility] Monocyte % 9.5 3.0 - 11.0 % 06/16/2024 5:09 PM [facility] Eosinophil % 0.9 0.0 - 7.0 % 06/16/2024 5:09 PM [facility] Basophil % 0.2 0.0 - 1.6 % 06/16/2024 5:09 PM [facility] Immature Granulocytes % 1.9(H) 0.0 - 1.0 % 06/16/2024 5:09 PM [facility] Neutrophil Absolute 8.33(H) 1.60 - 7.50 x10E9/L 06/16/2024 5:09 PM [facility] Lymphocyte Absolute 1.08 1.00 - 4.40 x10E9/L 06/16/2024 5:09 PM [facility] Monocyte Absolute 1.02(H) 0.15 - 1.00 x10E9/L 06/16/2024 5:09 PM [facility] Eosinophil Absolute 0.10 0.00 - 0.60 x10E9/L 06/16/2024 5:09 PM [facility] Basophil Absolute 0.02 0.00 - 0.13 x10E9/L 06/16/2024 5:09 PM [facility] Blood BLOOD SPECIMEN / Unknown Lab Venipuncture / Unknown 06/16/2024 4:15 PM CDT 06/16/2024 5:02 PM CDT us Alan Davenport MD LAB - HEMATOLOGY ORDERABLES F inal Result [facility] [address] [place] [address], [place] [phone] * (ABNORMAL) COMPREHENSIVE METABOLIC PANEL (06/16/2024 4:15 PM CDT) Only the most recent of2 resultswithin the time period is included. BUN 34(H) 7 - 26 mg/dL 06/16/2024 5:31 PM [facility] Creatinine 8.52(H) 0.71 - 1.16 mg/dL 06/16/2024 5:31 PM [facility] Sodium 141 136 - 145 mmol/L 06/16/2024 5:31 PM [facility] Potassium 3.8 3.5 - 4.5 mmol/L 06/16/2024 5:31 PM [facility] Chloride 100 98 - 107 mmol/L 06/16/2024 5:31 PM [facility] CO2 24 22 - 29 mmol/L 06/16/2024 5:31 PM [facility] Glucose 62(L) 70 - 99 mg/dL 06/16/2024 5:31 PM [facility] Calcium 8.0(L) 8.4 - 10.2 mg/dL 06/16/2024 5:31 PM [facility] Protein Total 5.9(L) 6.0 - 8.3 g/dL 06/16/2024 5:31 PM [facility] Albumin 2.7(L) 3.4 - 5.0 g/dL 06/16/2024 5:31 PM [facility] Bilirubin Total 0.3 0.2 - 1.2 mg/dL 06/16/2024 5:31 PM [facility] Alkaline Phosphatase 40 40 - 150 U/L 06/16/2024 5:31 PM [facility] ALT 19 5 - 55 U/L 06/16/2024 5:31 PM [facility] AST 26 5 - 34 U/L 06/16/2024 5:31 PM T [facility] Anion Gap 17(H) 6 - 16 06/16/2024 5:31 PM [facility] BUN/Creatinine Ratio 4(L) 7 - 23 06/16/2024 5:31 PM T [facility] Osmolality Calculated 298(H) 275 - 295 mOsm/kg 06/16/2024 5:31 PM [facility] Albumin/Globulin Ratio 0.8(L) 1.1 - 2.3 06/16/2024 5:31 PM [facility] eGFR by CKD-EPI 6(L) >=90 mL/min/1.7 3 m2 06/16/2024 5:31 PM [facility] Blood BLOOD SPECIMEN / Unknown Lab Venipuncture / Unknown 06/16/2024 4:15 PM CDT 06/16/2024 5:02 PM CDT us Maylin Cutler DO LAB - CHEMISTRY ORDERABLES Fin al Result [address] [address], [place] [phone] * PROSTATE SPECIFIC ANTIGEN SCREEN (06/16/2024 4:15 PM CDT) PSA Total 2.8 <4.0 ng/mL 06/16/2024 5:47 PM CDT [facility] Blood BLOOD SPECIMEN / Unknown Lab Venipuncture / Unknown 06/16/2024 4:15 PM CDT 06/16/2024 5:14 PM CDT Narrative [facility] - 06/16/2024 5:47 PM CDT PSA values will vary depending on the testing procedure used. Results are not comparable across different test methods. [facility] uses the Paper.li Alinity immunoassay test method. us Alan Davenport MD LAB - CHEMISTRY ORDERABLES Fi nal Result [address] [address], [place] [phone] * (ABNORMAL) PHOSPHORUS BLOOD (06/16/2024 4:15 PM CDT) Phosphorus 7.6(H) 2.8 - 5.1 mg/dL 06/16/2024 5:31 PM CDT [facility] Blood BLOOD SPECIMEN / Unknown Lab Venipuncture / Unknown 06/16/2024 4:15 PM CDT 06/16/2024 5:02 PM CDT us Alan Davenport MD LAB - CHEMISTRY ORDERABLES Fi nal Result [address] [address], [place] [phone] * IRON BLOOD (06/16/2024 4:15 PM CDT) Pathologist [facility] Iron 73 50 - 175 ug/dL 06/16/2024 5:30 PM CDT [facility] Blood BLOOD SPECIMEN / Unknown Lab Venipuncture / Unknown 06/16/2024 4:15 PM CDT 06/16/2024 5:15 PM CDT us Alan Davenport MD LAB - CHEMISTRY ORDERABLES Fi nal Result Performing Organization Address City/[facility]/ZIP Co de Phone Number [address] [address], [place] [phone] * HEPATITIS B CORE ANTIBODY (06/16/2024 4:15 PM CDT) Pathologist [facility] HBc Antibody Total Non-reacti ve Non-reacti ve 06/16/2024 5:50 PM CDT [facility] Blood BLOOD SPECIMEN / Unknown Lab Venipuncture / Unknown 06/16/2024 4:15 PM CDT 06/16/2024 5:15 PM CDT us Alan Davenport MD LAB - CHEMISTRY ORDERABLES Fi nal Result [address] [place] [address], [facility] [phone] * HEPATITIS B SURFACE ANTIGEN W RFLX CONFIRMATION (06/16/2024 4:15 PM CDT) [facility] Hepatitis B Virus Surface Antigen Non-reacti ve Non-reacti ve 06/16/2024 5:50 PM CDT [facility] Blood BLOOD SPECIMEN / Unknown Lab Venipuncture / Unknown 06/16/2024 4:15 PM CDT 06/16/2024 5:15 PM CDT Alan Davenport MD LAB - CHEMISTRY ORDERABLES Fi nal Result Performing Organization Address [facility] Co de Phone Number [address] [address], [facility] [phone] * HEPATITIS C ANTIBODY (06/16/2024 4:15 PM CDT) [facility] Hepatitis C Antibody Non-react sylvie Non-reac tive 06/16/2024 5:50 PM CDT [facility] Comment:Hepatitis C Antibody screen indicates no serologic evidence of past or current infection with Hepatitis C Virus. Patients with unexplained liver disease who are immunocompromised or suspected of having acute Hepatitis C infection may benefit from Nucleic Acid Test (MARLON) for Hepatitis C Viral RNA to confirm Hepatitis C status. Blood BLOOD SPECIMEN / Unknown Lab Venipuncture / Unknown 06/16/2024 4:15 PM CDT 06/16/2024 5:15 PM CDT us Alan Davenport MD LAB - CHEMISTRY ORDERABLES Fi nal Result Performing Organization Address City/[facility]/ZIP Co de Phone Number [address] [address], [facility] [phone] * (ABNORMAL) HEPATITIS A ANTIBODY (06/16/2024 4:15 PM CDT) [facility] Hepatitis A Virus Antibody Total Positive( A) Negative 06/17/2024 7:14 PM CDT [facility] [employer] ([facility]) Comment: The positive anti-HAV is consistent with recent or remote Hepatitis A infection or antibody response to HAV vaccination. False positive anti-HAV can occur. Performed By: [employer] [address] [place] [address] Radiation Control Technician: Mk Egan MD, PhD CLIA Number: [id number] Blood BLOOD SPECIMEN / Unknown Lab Venipuncture / Unknown 06/16/2024 4:15 PM CDT 06/16/2024 5:12 PM CDT Alan Davenport MD LAB - CHEMISTRY ORDERABLES Fi nal Result Performing Organization Address City/[facility]/ZIP Co de Phone Number [facility] ([facility]) [address] [place] [address], [facility] * (ABNORMAL) FERRITIN (06/16/2024 4:15 PM CDT) [facility] Ferritin 623(H) 22 - 275 ng/mL 06/16/2024 5:50 PM CDT [facility] Blood BLOOD SPECIMEN / Unknown Lab Venipuncture / Unknown 06/16/2024 4:15 PM CDT 06/16/2024 5:15 PM CDT us Alan Davenport MD LAB - CHEMISTRY ORDERABLES nal Result Performing Organization Address City/[facility]/ZIP Co de Phone Number [facility] [address] [place] [address], [facility] [phone] * (ABNORMAL) LIPID PROFILE (06/16/2024 4:15 PM CDT) Only the most recent of2 resultswithin the time period is included. Pathologist [facility] Cholesterol Total 112 <200 mg/dL 06/16/2024 5:31 PM CDT [facility] HDL 32(L) >40 mg/dL 06/16/2024 5:31 PM CDT [facility] Comment: ATP III Classification of HDL Cholesterol: <40 mg/dL: Considered a major risk factor. >60 mg/dL: Considered a negative risk factor. LDL Calculated 53 <100 mg/dL 06/16/2024 5:31 PM CDT [facility] Comment: ATP III Classification of LDL Cholesterol: <100 mg/dL: Optimal 100 - 129 mg/dL: Near Optimal/Above Optimal 130 - 159 mg/dL: Borderline High 160 - 189 mg/dL: High >190 mg/dL: Very High Triglycerides 134 <150 mg/dL 06/16/2024 5:31 PM CDT [facility] Comment: ATP III Classification of Triglycerides: <150 mg/dL: Normal 150 - 199 mg/dL: Borderline High 200 - 400 mg/dL: High >500 mg/dL: Very High Blood BLOOD SPECIMEN / Unknown Lab Venipuncture / Unknown 06/16/2024 4:15 PM CDT 06/16/2024 5:02 PM CDT us Maylin Cutler DO LAB - CHEMISTRY ORDERABLES Fin al Result [facility] [address] [place] [address], [facility] [phone] * US Thyroid (06/16/2024 2:32 PM CDT) Anatomical Region Laterality Modality Chest Ultrasound 06/16/2024 2:25 PM CDT Impressions 06/16/2024 2:38 PM CDT Impression: 1.Nodule 1: Located in the right [...] 3 and 5 years to document stability. Report dictated by Otis Bocanegra MD, (executive assistant to president). I, Raymundo Hanson MD have personally reviewed and interpreted this examination/study. 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 FINDINGS: Right thyroid lobe: 4.4 x 1.7 [...] ultrasound in 2, 3 and 5 years. 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 FINDINGS: Right thyroid lobe: 4.4 x 1.7 [...] x 1 cm), slightly increased in size comparedto prior. Score is TR4. Recommend further evaluation with fine-needle aspiration. 2.Nodule 2: Located in the right thyroid lobe and measuring 1.4 x 1.4 (previously measuring 1 x 1 cm), increased in size compared to prior.Score is TR4. Recommend ultrasound follow-up in 2, 3 and 5 years to document stability. Report dictated by Otis Bocanegra MD, (executive assistant to president). I, Raymundo Hanson MD have personally reviewed and interpreted this examination/study. > Interpreting Provider: Raymundo Hanson MD on 06/16/2024 2:38 PM us Alan Davenport MD US ORDERABLES Final Result * ECHO COMPLETE W CONTRAST (06/16/2024 1:55 PM CDT) IVSd 2D 1.616 cm SSM CV FUJ I PACS LVIDd 4.377 cm SSM CV FUJ I PACS LVIDs 2.976 cm SSM CV FUJ I PACS LVOT diam 2.046 cm SSM CV FUJ I PACS LVPWd 1.579 cm SSM CV FUJ I PACS LV biplane EF 62.26 % SSM CV FUJI PACS LV A2C EF 66.589 % SSM CV FUJ I PACS LV A4C EF 67.207 % SSM CV FUJ I PACS LV EDV A2C 175.518 ml SSM CV FU JI PACS LV EDV A4C 178.663 ml SSM CV FU JI PACS LV ESV A2C 58.642 ml SSM CV FU JI PACS LV ESV A4C 58.589 ml SSM CV FU JI PACS LVOT pk grad 4.081 mmHg SSM CV FUJI PACS LVOT pk dontrell 101.008 cm/s SSM CV F UJI PACS LVOT VTI 23.007 cm SSM CV FUJ I PACS RV-joy basal diam 3.384 cm SSM CV FUJI PACS RVIDd 3.35 cm SSM CV FUJ I PACS RVOT diam Doppler 3.341 cm SS M CV FUJI PACS RVOT pk dontrell 65.451 cm/s SSM CV F UJI PACS RVOT VTI 14.358 cm SSM CV FUJ I PACS LA size 5.077 cm SSM CV FUJ I PACS LA vol BP 93.015 ml SSM CV FUJ I PACS RA area 12.944 cm SSM CV FUJI PACS AV area pk dontrell 2.817 cm SSM CV FUJI PACS AV area cont VTI 2.62 cm SSM CV FUJI PACS AV pk grad 5.56 mmHg SSM CV FU JI PACS AV mn grad 2.95 mmHg SSM CV FU JI PACS AV pk dontrell 117.896 cm/s SSM CV FUJ I PACS AV VTI 28.874 cm SSM CV FUJ I PACS MV A pk donterll 101.425 cm/s SSM CV F UJI PACS MV E pk dontrell 116.678 cm/s SSM CV F UJI PACS MV E' lateral dontrell 6.619 cm/s SS M CV FUJI PACS PV pk dontrell 64.914 cm/s SSM CV FUJ I PACS PV VTI 13.546 cm SSM CV FUJ I PACS TAPSE 2.458 cm SSM CV FUJ I PACS TR pk dontrell 304.537 cm/s SSM CV FUJ I PACS Ascending aorta 3.397 cm SSM CV FUJI PACS IVC Diam Expiration 1.657 cm SSM CV FUJI PACS AV area index 1.068 cm /m SSM CV FUJI PACS LA vol index 0.038 l/m SSM CV FUJI PACS Dimensionless Index 0.797 unitless SSM CV FUJI PACS Myocardial strain charge 2 unitless SSM CV FUJI PACS Sinus of Valsalva 3.698 cm SS M CV FUJI PACS Anatomical Region Laterality Modality Ultrasound 06/16/2024 1:12 PM CDT Narrative 06/16/2024 7:51 PM CDT Summary * The left ventricle is normal [...] pulmonary arterial systolic pressure is 40 mmHg. Patient Info Name: Grace Interiano Age: 69 years : 1955 Gender: Male Ht: 68 in Wt: 264 lb BSA: 2.45 m2 HR: 71 bpm BP: 118 / 80 mmHg Heart Rhythm: Sinus Rhythm Exam Date: 06/16/2024 1:12 PM Patient Status: O/P Study Site: [facility] Primary Location: [facility] EStudy Info Technical Quality: Technically Difficult Exam Type: ECHO COMPLETE W CONTRAST Indications Please refer to EHR for Exam Diagnosis Codes - Procedure(s) * A complete 2D, color Doppler, spectral Doppler and M-Mode transthoracic echocardiogram was performed with an Ultrasound Enhancing Agent (UEA). Contrast/Agitated Saline Contrast / Saline: Definity Amount: 1.00 ml Reaction to Contrast: no Reason for Technically Difficult Study: body habitus Staff Referring Physician: Alan Davenport Ordering Provider: Alan Davenport Attending Physician: Alan Davenport Photo Tech: Diane Merlos Left Ventricle Left ventricular systolic function is [...] cm with an index of 1.4 cm/m2. Measurements Left Ventricular Outflow Tract Name Value Normal LVOT 2D LVOT Diameter 2.0 cm LVOT Area 3.3 cm2 LVOT Doppler LVOT Peak Velocity 1.0 m/s LVOT Peak Gradient 4 mmHg LVOT Mean Velocity 61.06 cm/s LVOT Mean Gradient 2 mmHg LVOT VTI 23.0 cm LVOT VTI/AV VTI Ratio 0.8 LVOT Stroke Volume 76 ml LVOT Stroke Volume Index 31 ml/m2 35-58 LVOT CO 5.4 l/min LVOT CI 2.2 l/min/m2 Pulmonic Valve Name Value Normal PV 2D RVOT Diameter (2D) 3.3 cm 1.7-2.7 RVOT Doppler RVOT Peak Velocity 0.7 m/s RVOT Peak Gradient 2 mmHg RVOT Mean Gradient 1 mmHg PV Doppler PV Peak Velocity 0.6 m/s PV Peak Gradient 2 mmHg PV Mean Gradient 1 mmHg PV Area (Cont Eq VTI) 9.29 cm2 PV Area Index (Cont Eq VTI) 3.79 cm2/m2 PV Area (Cont Eq Dontrell) 8.8 cm2 PV Area Index (Cont Eq Dontrell) 3.60 cm2/m2 Mitral Valve Name Value Normal MV Diastolic Function MV E Peak Velocity 1.2 m/sec MV A Peak Velocity 1.0 m/sec MV E/A 1.2 MV Decel Time (PW) 235 ms MV A Wave Duration 166 ms MV Annular TDI MV Septal e' Velocity 6 cm/s >=8 MV E/e' (Septal) 21 <=8 MV Lateral e' Velocity 7 cm/s >=10 MV E/e' (Lateral) 18 <=8 MV e' Average 6 cm/s MV E/e' (Average) 19 Tricuspid Valve Name Value Normal TV 2D TV Annulus Diameter (4C) 4.0 cm TV Regurgitation Doppler TR Peak Velocity 3.0 m/s TR Peak Gradient 37 mmHg Estimated PAP/RSVP RA Pressure 3 mmHg <=5 PA Systolic Pressure 40 mmHg <35 RV Systolic Pressure 40 mmHg <36 Pulmonary Vessels Name Value Normal Pulmonary Veins Pulm Vein Peak Systolic Velocity 56.9 cm/s Pulm Vein Peak Diastolic Velocity 74.0 cm/s Pulm Vein S/D Velocity Ratio 1 Aorta Name Value Normal Ascending Aorta Sinus of Valsalva Diameter 3.7 cm 2.8-4.0 Sinus of Valsalva Index 1.5 cm/m2 1.3-2.1 Asc Ao Diameter 3.4 cm 2.2-3.8 Asc Ao Diameter Index 1.4 cm/m2 1.1-1.9 Septae/Shunt/Generic Name Value Normal Qp/Qs Qp/Qs 1.7 Venous Name Value Normal IVC/SVC IVC Diameter 1.7 cm <=2.1 Aortic Valve Name Value Normal AV Doppler AV Peak Velocity 1.18 m/s AV Peak Gradient 6 mmHg AV Mean Gradient 3 mmHg AV VTI 29 cm AV Area (Cont Eq VTI) 2.62 cm2 >=2.00 AV Area (Cont Eq Dontrell) 2.82 cm2 AV DI (VTI) 0.80 AV DI (Dontrell) 0.86 AV Regurgitation 2D LVOT Area 3.29 cm2 Ventricles Name Value Normal LV Dimensions 2D/MM IVS Diastolic Thickness (2D) 1.6 cm 0.6-1.0 LVID Diastole (2D) 4.4 cm 4.2-5.8 LVPW Diastolic Thickness (2D) 1.6 cm 0.6-1.0 IVS Systolic Thickness (2D) 1.8 cm LVID Systole (2D) 3.0 cm 2.5-4.0 LVPW Systolic Thickness (2D) 1.8 cm LV Mass (2D Cubed) 248 g 88-224 LV Mass Index (2D Cubed) 101 g/m2 49-115 Relative Wall Thickness (2D) 0.72 <=0.42 LV Fractional Shortening/Ejection Fraction 2D/MM LV Fractional Shortening (2D) 32 % 25-43 LV EF (2D Teicholz) 60 % 52-72 LV Diastolic Volume (4C MOD) 179 ml LV EF (4C MOD) 67 % LV Diastolic Volume (2C MOD) 176 ml LV EF (2C MOD) 67 % LV Diastolic Volume (BP MOD) 180 ml 62-150 LV Diastolic Volume Index (BP MOD) 73 ml/m2 34-74 LV Systolic Volume (BP MOD) 68 ml 21-61 LV Systolic Volume Index (BP MOD) 28 ml/m2 11-31 LV EF (BP MOD) 62 % 52-72 LV Diastolic Length (4C) 9.4 cm LV Systolic Length (4C) 8.1 cm LV Stroke Volume (4C MOD) 120 ml RV Dimensions 2D/MM RVID Diastole (2D) 3.4 cm 2.5-3.5 RVID Systole (2D) 3.2 cm RV Basal Diastolic Dimension 3.4 cm 2.5-4.1 RV Diastolic Length (4C) 6.9 cm 5.9-8.3 TAPSE 2.5 cm >=1.7 Atria Name Value Normal LA Dimensions LA Dimension (2D) 5.1 cm 3.0-4.1 LA Dimen Index (2D) 2.1 cm/m2 LA Volume (BP MOD) 93 ml LA Volume Index (BP MOD) 38 ml/m2 16-34 RA Dimensions RA Area (4C) 13 cm2 <=18 RA Area (4C) Index 5 cm2/m2 Report Signatures Finalized by Solange Guido on 06/16/2024 07:51 PM Reviewed by Fellow Lala Severino on 06/16/2024 02:26 PM Procedure Note Solange Guido MD - 06/16/2024 Summary * The left ventricle is normal in size, with normal systolic functionand an estimated ejection fraction of 62 % by biplane method of disks. Left ventricular wall motion is normal. * The left ventricular diastolic function is consistent with grade II diastolic dysfunction. * Right ventricle is normal in size with normal systolic function. * No hemodynamically significant valve disease. * Mild pulmonary hypertension, estimated pulmonary arterial systolic pressure is 40 mmHg. Patient Info Name: Grace Interiano Age: 69 years : 1955 Gender: Male Ht: 68 in Wt: 264 lb BSA: 2.45 m2 HR: 71 bpm BP: 118 / 80 mmHg Heart Rhythm: Sinus Rhythm Exam Date: 06/16/2024 1:12 PM Patient Status: O/P Study Site: [facility] Primary Location: [facility] EStudy Info Technical Quality: Technically Difficult Exam Type: ECHO COMPLETE W CONTRAST Indications Please refer to EHR for Exam Diagnosis Codes - Procedure(s) * A complete 2D, color Doppler, spectral Doppler and M-Modetransthoracic echocardiogram was performed with an Ultrasound Enhancing Agent (UEA). Contrast/Agitated Saline Contrast / Saline: Definity Amount: 1.00 ml Reaction to Contrast: no Reason for Technically Difficult Study: body habitus Staff Referring Physician: Alan Davenport Ordering Provider: Alan Davenport Attending Physician: Alan Davenport Photo Tech: Diane Merlos Left Ventricle Left ventricular systolic function is normal with an estimatedejection fraction of 62 % by biplane method of disks. Left ventricular segmentalwall motion is normal. The left ventricle is normal in size. The leftventricular mass is normal. The left ventricular diastolic function is consistentwith grade II diastolic dysfunction. Right Ventricle The right ventricle is normal in size. Right ventricular systolicfunction is normal. Left Atrium The left atrium is mildly dilated with a left atrial volume index of38 ml/m2 by BP MOD. Right Atrium The right atrium is normal in size. Atrial Septum Intact interatrial septum visualized by 2D and color Doppler imaging. Aortic Valve The aortic valve is trileaflet. There is no aortic valve stenosis witha peak velocity of 1.2 m/s, mean gradient of 3 mmHg, and aortic valve areaof 2.62 cm2. There is no significant aortic valve regurgitation. Pulmonic Valve The pulmonic valve is grossly normal. There is no pulmonic valvestenosis. There is trace pulmonic regurgitation. Mitral Valve The mitral valve is displaying restricted posterior leaflet motion.There is severe posterior mitral annular calcification. There is no mitral valve stenosis. There is trace mitral valve regurgitation. Tricuspid Valve The tricuspid valve is normal. There is no tricuspid valve stenosis.There is trace tricuspid valve regurgitation. Mild pulmonary hypertension,estimated pulmonary arterial systolic pressure is 40 mmHg. Inferior Vena Cava Normal inferior vena cava with > 50% collapse upon inspirationconsistent with normal right atrial pressure, 3 mmHg. Pericardium/Pleural There is a trivial pericardial effusion. Aorta The aortic root at the sinus of Valsalva is normal in size measuring 3.7cm with an index of 1.5 cm/m2. The ascending aorta is normal in sizemeasuring 3.4 cm with an index of 1.4 cm/m2. Measurements Left Ventricular Outflow Tract Name Value Normal LVOT 2D LVOT Diameter 2.0 cm LVOT Area 3.3 cm2 LVOT Doppler LVOT Peak Velocity 1.0 m/s LVOT Peak Gradient 4 mmHg LVOT Mean Velocity 61.06 cm/s LVOT Mean Gradient 2 mmHg LVOT VTI 23.0 cm LVOT VTI/AV VTI Ratio 0.8 LVOT Stroke Volume 76 ml LVOT Stroke Volume Index 31 ml/m2 35-58 LVOT CO 5.4 l/min LVOT CI 2.2 l/min/m2 Pulmonic Valve Name Value Normal PV 2D RVOT Diameter (2D) 3.3 cm 1.7-2.7 RVOT Doppler RVOT Peak Velocity 0.7 m/s RVOT Peak Gradient 2 mmHg RVOT Mean Gradient 1 mmHg PV Doppler PV Peak Velocity 0.6 m/s PV Peak Gradient 2 mmHg PV Mean Gradient 1 mmHg PV Area (Cont Eq VTI) 9.29 cm2 PV Area Index (Cont Eq VTI) 3.79 cm2/m2 PV Area (Cont Eq Dontrell) 8.8 cm2 PV Area Index (Cont Eq Dontrell) 3.60 cm2/m2 Mitral Valve Name Value Normal MV Diastolic Function MV E Peak Velocity 1.2 m/sec MV A Peak Velocity 1.0 m/sec MV E/A 1.2 MV Decel Time (PW) 235 ms MV A Wave Duration 166 ms MV Annular TDI MV Septal e' Velocity 6 cm/s >=8 MV E/e' (Septal) 21 <=8 MV Lateral e' Velocity 7 cm/s >=10 MV E/e' (Lateral) 18 <=8 MV e' Average 6 cm/s MV E/e' (Average) 19 Tricuspid Valve Name Value Normal TV 2D TV Annulus Diameter (4C) 4.0 cm TV Regurgitation Doppler TR Peak Velocity 3.0 m/s TR Peak Gradient 37 mmHg Estimated PAP/RSVP RA Pressure 3 mmHg <=5 PA Systolic Pressure 40 mmHg <35 RV Systolic Pressure 40 mmHg <36 Pulmonary Vessels Name Value Normal Pulmonary Veins Pulm Vein Peak Systolic Velocity 56.9 cm/s Pulm Vein Peak Diastolic Velocity 74.0 cm/s Pulm Vein S/D Velocity Ratio 1 Aorta Name Value Normal Ascending Aorta Sinus of Valsalva Diameter 3.7 cm 2.8-4.0 Sinus of Valsalva Index 1.5 cm/m2 1.3-2.1 Asc Ao Diameter 3.4 cm 2.2-3.8 Asc Ao Diameter Index 1.4 cm/m2 1.1-1.9 Septae/Shunt/Generic Name Value Normal Qp/Qs Qp/Qs 1.7 Venous Name Value Normal IVC/SVC IVC Diameter 1.7 cm <=2.1 Aortic Valve Name Value Normal AV Doppler AV Peak Velocity 1.18 m/s AV Peak Gradient 6 mmHg AV Mean Gradient 3 mmHg AV VTI 29 cm AV Area (Cont Eq VTI) 2.62 cm2 >=2.00 AV Area (Cont Eq Dontrell) 2.82 cm2 AV DI (VTI) 0.80 AV DI (Dontrell) 0.86 AV Regurgitation 2D LVOT Area 3.29 cm2 Ventricles Name Value Normal LV Dimensions 2D/MM IVS Diastolic Thickness (2D) 1.6 cm 0.6-1.0 LVID Diastole (2D) 4.4 cm 4.2-5.8 LVPW Diastolic Thickness (2D) 1.6 cm 0.6-1.0 IVS Systolic Thickness (2D) 1.8 cm LVID Systole (2D) 3.0 cm 2.5-4.0 LVPW Systolic Thickness (2D) 1.8 cm LV Mass (2D Cubed) 248 g 88-224 LV Mass Index (2D Cubed) 101 g/m2 49-115 Relative Wall Thickness (2D) 0.72 <=0.42 LV Fractional Shortening/Ejection Fraction 2D/MM LV Fractional Shortening (2D) 32 % 25-43 LV EF (2D Teicholz) 60 % 52-72 LV Diastolic Volume (4C MOD) 179 ml LV EF (4C MOD) 67 % LV Diastolic Volume (2C MOD) 176 ml LV EF (2C MOD) 67 % LV Diastolic Volume (BP MOD) 180 ml 62-150 LV Diastolic Volume Index (BP MOD) 73 ml/m2 34-74 LV Systolic Volume (BP MOD) 68 ml 21-61 LV Systolic Volume Index (BP MOD) 28 ml/m2 11-31 LV EF (BP MOD) 62 % 52-72 LV Diastolic Length (4C) 9.4 cm LV Systolic Length (4C) 8.1 cm LV Stroke Volume (4C MOD) 120 ml RV Dimensions 2D/MM RVID Diastole (2D) 3.4 cm 2.5-3.5 RVID Systole (2D) 3.2 cm RV Basal Diastolic Dimension 3.4 cm 2.5-4.1 RV Diastolic Length (4C) 6.9 cm 5.9-8.3 TAPSE 2.5 cm >=1.7 Atria Name Value Normal LA Dimensions LA Dimension (2D) 5.1 cm 3.0-4.1 LA Dimen Index (2D) 2.1 cm/m2 LA Volume (BP MOD) 93 ml LA Volume Index (BP MOD) 38 ml/m2 16-34 RA Dimensions RA Area (4C) 13 cm2 <=18 RA Area (4C) Index 5 cm2/m2 Report Signatures Finalized by oSlange Guido on 06/16/2024 07:51 PM Reviewed by Fellow Lala Severino on 06/16/2024 02:26 PM Alan Davenport MD ECHO CUPID Final Result * XR CHEST PA AND LATERAL (06/16/2024 12:49 PM CDT) Anatomical Region Laterality Modality Chest Digital Radiogra phy 06/16/2024 1:20 PM CDT Impressions 06/16/2024 1:22 PM CDT IMPRESSION: No acute cardiopulmonary abnormalities. > Interpreting Provider: Santiago Garcia MD on 06/16/2024 1:22 PM Narrative 06/16/2024 1:22 PM CDT PROCEDURE: XR CHEST 2VW DATE/TIME OF EXAM: 06/16/2024 12:49 PM CLINICAL INFORMATION: None relevant/not provided if blank. 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 Borderline cardiomegaly. Atherosclerotic aorta. Few calcified granulomas. Mild bibasilar atelectasis. No focal consolidation, pleural effusion, or pneumothorax. Procedure Note Santiago Garcia MD - 06/16/2024 PROCEDURE: XR CHEST 2VW DATE/TIME OF EXAM: 06/16/2024 12:49 PM CLINICAL INFORMATION: None relevant/not provided if blank. 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 Borderline cardiomegaly. Atherosclerotic aorta. Few calcifiedgranulomas. Mild bibasilar atelectasis. No focal consolidation, pleural effusion, or pneumothorax. IMPRESSION: No acute cardiopulmonary abnormalities. > Interpreting Provider: Santiago Garcia MD on 06/16/2024 1:22 PM Alan Davenport MD DIAGNOSTIC IMAGING ORDERABLES Final Result * CT ABDOMEN AND PELVIS NON IV CONTRAST (06/16/2024 12:47 PM CDT) Anatomical Region Laterality Modality Abdomen, Pelvis Computed Tomogra phy 06/16/2024 1:43 PM CDT Impressions 06/16/2024 2:17 PM CDT Impression: 1.Bilateral multiple renal cysts, with interval increase in foci of calcification throughout this cyst compared to the study done on 08/02/2020. 2.Peritoneal dialysis catheter in the pelvis. Pphlg-yd-tnjcgowd volume ascites throughout the abdomen and pelvis, likely related to dialysis. 3.Moderate to severe atherosclerotic calcification of bilateral common iliac arteries as well as bilateral external iliac arteries 4.Prostatomegaly. 5.Bilateral subcentimeter lung nodules, unchanged since 03/04/2022. > Dictated by Ilene Borja MD (executive assistant to president). I, Junior Hurley MD have personally reviewed and interpreted this examination/study. 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 Soft tissues: Normal. 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 Findings: Evaluation of visceral and vascular structures is degraded due to lackof intravenous contrast administration. Lower Chest: Stable 5 mm nodule in the posterior aspect of the left lower lobe(series 3, image 30). There are multiple punctate [...] kidneys, when compared to the study done on08/02/2020 there is interval increase in punctate calcification throughout the cystin bilateral kidneys however size of the cyst appears unchanged. Again someof the cyst show higher attenuation and likely representing proteinaceous/hemorrhagic cyst. No evidence of hydronephrosis. Gastrointestinal: The stomach and visualized loops of large and small bowel areunremarkable. Mesentery/Peritoneum/Retroperitoneum: Small to moderate volume free fluid in the abdomen and pelvis Peritoneal dialysis catheter terminates in the right pelvis. Bladder: The bladder wall is diffusely thickened, likely due to decompressedstate. Reproductive Organs: The prostate is enlarged, measuring 6 cm transversely. Vasculature: Atherosclerotic calcification of the aorta and its branch vessels.Moderate to severe atherosclerotic calcification of bilateral common iliacarteries as well as bilateral external iliac arteries. Bones: Bone windows demonstrate no suspicious lytic or blastic lesions. The visible osseous structures are intact. Degenerative changes are seen inthe spine. Soft tissues: Normal. Impression: 1.Bilateral multiple renal cysts, with interval increase in foci of calcification throughout this cyst compared to the study done on08/02/2020. 2.Peritoneal dialysis catheter in the pelvis. Mwxdq-kc-wegzvutc volume ascites throughout the abdomen and pelvis, likely related to dialysis. 3.Moderate to severe atherosclerotic calcification of bilateral common iliac arteries as well as bilateral external iliac arteries 4.Prostatomegaly. 5.Bilateral subcentimeter lung nodules, unchanged since 03/04/2022. > Dictated by Ilene Borja MD (executive assistant to president). IJunior MD have personally reviewed and interpreted this examination/study. > Interpreting Provider: Junior Hurley MD on 52:17 PM Alan Davenport MD CT ORDERABLES Final Result * NM MYOCARD PERF REST STRESS (06/16/2024 12:44 PM CDT) Anatomical Region Laterality Modality Chest Nuclear Medicine 06/16/2024 10:2 5 AM CDT Impressions 06/17/2024 8:36 AM CDT Impression: 1. Intermediate size moderate stress-induced ischemia involving the mid to distal anterior/anterolateral wall extending to the apex. 2. Normal left ventricular wall motion and thickening with calculated left ventricular ejection fraction of 54%. > Dictated by Neeraj Johnson MD ([facility]) 06/16/2024 10:25 AM IAriel MD have personally reviewed and interpreted this examination/study. > Interpreting Provider: Ariel Araya MD on 06/17/2024 8:36 AM Narrative 06/17/2024 8:36 AM CDT PROCEDURE: NM MYOCARD PERF REST STRESS DATE/TIME OF EXAM: 06/16/2024 12:44 PM CLINICAL INFORMATION: None relevant/not provided if blank. 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 Referred for cardiac evaluation prior to kidney transplant. Procedure: The rest intravenous injection of 8.6 mCi of Tc-99m Myoview was administered IV in the right forearm. Myocardial perfusion imaging was performed 30 minutes post-injection. Preliminary rest EKG demonstrated no evidence of ischemic changes. At the conclusion of the rest imaging, pharmacologic stress testing was performed with 0.4 mg of Regadenoson administered IV in the right forearm over 10 seconds. No low-level exercise was performed in conjunction with the vasodilator infusion. The patient experienced no chest pain. Preliminary stress ECG demonstrated no evidence of ischemic changes. After approximately 10 seconds, the patient was injected with 24.2 mCi of Tc-99m Myoview IV in the right forearm. Gated SPECT/CT myocardial perfusion imaging was performed 30 minutes post-injection. Patient's BMI is 40.1 kg/m . Low-dose noncontrast CT of the region of the heart was performed for attenuation correction only. The heart rate at rest was 56 at baseline and increased to 71 beats per minute during the vasodilator infusion. The BP was 175/85 at rest and 175/85 after the stress procedure. A separate ECG report will be read by Cardiology. Comparison: MPI study from 11/06/2022. Findings: The image quality is technically adequate [...] lobe posteriorly, pulmonary bibasilar dependent atelectasis noted. Procedure Note Ariel Araya MD - 06/17/2024 PROCEDURE: NM MYOCARD PERF REST STRESS DATE/TIME OF EXAM: 06/16/2024 12:44 PM CLINICAL INFORMATION: None relevant/not provided if blank. 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 Referred for cardiacevaluation prior to kidney transplant. Procedure: The rest intravenous injection of 8.6 mCi of Tc-99m Myoview was administered IV in the right forearm. Myocardial perfusion imaging was performed 30 minutes post-injection. Preliminary rest EKG demonstratedno evidence of ischemic changes. At the conclusion of the rest imaging, pharmacologic stress testing was performed with 0.4 mg of Regadenoson administered IV in the right forearm over 10 seconds. No low-levelexercise was performed in conjunction with the vasodilator infusion. The patient experienced no chest pain. Preliminary stress ECG demonstrated noevidence of ischemic changes. After approximately 10 seconds, the patient was injected with 24.2 mCi of Tc-99m Myoview IV in the right forearm. Gated SPECT/CT myocardial perfusion imaging was performed 30 minutes post-injection. Patient's BMI is 40.1 kg/m . Low-dose noncontrast CT of the region of the heart was performed for attenuation correction only. The heart rate at rest was 56 at baseline and increased to 71 beats per minute during the vasodilator infusion. The BP was 175/85 at rest and 175/85 after the stress procedure. A separate ECG report will be read by Cardiology. Comparison: MPI study from 11/06/2022. Findings: The image quality is technically adequate despite adjacent bowelactivity In the stress and rest SPECT/CT images. The left ventricle is normal in size. The stress SPECT/CT images show 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 size area ofmoderately reduced counts involving the mid to distal anterior/anterolateral wall extending into the apex improved in rest images. Gated SPECT/CT images show normal myocardial thickening and normal wall motion. The calculated left ventricular ejection fraction is 54%. Previously was 46%. Low dose CT portion of the study-non diagnostic- but demonstrates stentin LAD noted. Atherosclerotic calcifications along the coronary arteriesand the thoracic aorta. Calcified granuloma seen within the right hilarregion, small volume ascites seen, subcentimeter calcified granuloma within the right upper lung lobe posteriorly, pulmonary bibasilar dependent atelectasis noted. Impression: 1. Intermediate size moderate stress-induced ischemia involving the midto distal anterior/anterolateral wall extending to the apex. 2. Normal left ventricular wall motion and thickening with calculatedleft ventricular ejection fraction of 54%. > Dictated by Neeraj Johnson MD ([facility]) 06/16/2024 10:25AM I, Ariel Araya MD have personally reviewed and interpreted this examination/study. > Interpreting Provider: Ariel Araya MD on 06/17/2024 8:36 AM Alan Davenport MD IN ORDERABLES Final Result * STRESS TEST Pharm-Lexiscan (Regadenoson) (06/16/2024 11:55 AM CDT) Predicted METS 7.2 METS SSM C V FUJI PACS Target HR 129 bpm SSM CV FUJ I PACS Max Age Predicted HR 152 bpm SSM CV FUJI PACS Baseline HR 56 bpm SSM CV F UJI PACS Stress peak HR 71 bpm SSM C V FUJI PACS Max HR Percent 47 % SSM C V FUJI PACS Baseline BP 175/85 mmHg SSM CV F UJI PACS Post peak BP 175/85 mmHg SSM CV FUJI PACS Target HR Percent 55 % SSM CV FUJI PACS Anatomical Region Laterality Modality Cardiac Electrop hysiology Narrative 06/18/2024 9:12 AM CDT ECG: The ECG was negative for ischemia. Stress Findings A pharmacological stress test was performed using regadenoson (0.4 mg). The patient reported no symptoms during the stress test. Symptoms began at minute 1144 during stress and ended at minute 1150 during recovery. The patient reached the end of the protocol. A peak heart rate of 71 bpm (47% of max predicted heart rate) was achieved. Blood pressure demonstrated a normal response and heart rate demonstrated a normal response to stress. The patient's heart rate recovery was normal. The patient's resting blood pressure was 175/85 mmHg. The patient's peak stress blood pressure was 175/85 mmHg. ECG Resting ECG: Abnormal. Exhibits sinus bradycardia. ECG demonstrates right bundle branch block. left anterior fascicular block. bifascicular block. The ECG was negative for ischemia. Alan Davenport MD [facility] Final Result from Last 3 Months Insurance AET[employer] AETNA MEDICARE ADV SELF PAY NO INSURANCE Member Subscriber Plan / Payer (Ef fective for All Dates) Name:Dell Interianoderlillian Vaughn Member ID:Not on file Relation to Subscriber:Not on file Name:LAISHADELL WHITAKERGRACE Subscriber ID:Not on file Address: [address] [place] [address] Payer ID:Not on file Group ID:Not on file Type:Self Pay Address: [place], [place] * Guarantor: GRACE INTERIANO Account Type Relation to Patient Date of Phone Billing Address Personal/Family [address] [place] [address] * Guarantor: GRACE INTERIANO Account Type Relation to Patient Date of Phone Billing Address Personal/Family [address] [place] [address] Advance Directives * Full Code (Latest Code Status on File) Date Activated Date Inactivated Comments 07/21/2024 4:56 PM 07/21/2024 7:23 PM * Full Code Date Activated Date Inactivated Comments 07/21/2024 4:56 PM 07/21/2024 4:56 PM * Full Code Date Activated Date Inactivated Comments 08/04/2020 11:48 AM 08/08/2020 9:40 AM Care Teams Shredded Filler Machine Wrapper Layer Relationship Specialty Start Date End Date Jeff Strickland MD [address] [place] [address] PCP - General 03/05/18 [place] [address] [address] Orthopedic Surgery 03/28/17
--- OUTSIDE RECORDS SUMMARY | 2024-07-24 21:09 | XMS_ITS | Encounter Summary ---
Author Organization [facility] Address [facility] [place] [address] Care Team Providers Care Indirect Fire Infantryman Name Role Phone Deandre Bojorquez MD Unavailable [phone] Jeff Strickland MD Primary Care Provider [phone] Encounter Details Date Type Department Care Team (Late st Contact Info) Description 05/29/2023 Lab Requisition [facility] [address] [place] [id number] Alan Davenport MD [facility] [place][note 2]1 [facility] [place] [address] Social History Tobacco Use Types Packs/Day Years Used Date Smoking Tobacco: Never Smokeless Tobacco: Never Alcohol Use Standard Drinks/Week Comments Not Currently 0 (1 standard drink = 0.6 oz pur e alcohol) socially in past Sex and Gender Information Value Date Recorded Sex Assigned at Male 07/02/2021 2:37 PM CDT Legal Sex Male 10:14 PM [employer]WOM[employer] Gender Identity Male 07/02/2021 2:37 PM CDT [...] Info) Description 08/04/2024 11:30 AM CDT Appointment [facility] [address] [place] [address] Thomas Mendoza MD [address] [place] [address] [address] [place] [address] 08/04/2024 1:30 PM CDT Office Visit [facility] - Urology [address] [place] [phone] Thomas Mendoza MD [address] [place] [address] [address] [place] [address] 09/13/2024 10:40 AM CDT Office Visit [facility] - Endocrinology [address] [place] [address], [place] [address] Niraj Turner MD [address] [place] [address] 2[address] [place] [address] 10/13/2024 1:00 PM CDT Office Visit [facility] - Cardiology [address] [facility] [place] [address] [place] [phone] Maylin Cutler DO [address] [facility] [address] [place] [address] Scheduled Procedures Name Priority Associated Diagnoses Date/Ti me CCL STAGED PERC CORONARY INTERVENTION Abnormal stress test Dyspnea on exertion Pre-kidney transplant, listed Coronary artery disease with angina pectoris, unspecified vessel or lesion type, unspecified whether [place] or transplanted heart Abnormal findings on cardiac catheterization documented as of this encounter Procedures Procedure Name Priority Date/Time Associated Diagnosis Comments HOLD HLA SPECIMEN Routine 05/21/2023 9:2 4 AM CDT documented in this encounter Results * HOLD HLA SPECIMEN (05/21/2023 9:24 AM CDT) Hold HLA Specimen 05/29/2023 10:30 AM CDT [facility] Comment:The Hold HLA specime n has been received into the lab and will be held for 5 years at 4 degrees. Blood BLOOD SPECIMEN / Unknown 05/21/2023 9:24 AM CDT 05/29/2023 9:24 AM CDT Alan Davenport MD LAB - BLOOD BANK ORDERABLES F inal Result [facility] [address] documented in this encounter Visit Diagnoses Not on filedocumented in this encounter Care Teams Indirect Fire Infantryman Relationship Specialty Start Date End Date Jeff Strickland MD [address] [place] [address] PCP - General 03/05/18 [place] [address] [place] [address] Orthopedic Surgery 03/28/17 documented as of this encounter
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
--- OUTSIDE RECORDS SUMMARY | 2024-07-24 21:10 | XMS_ITS | Encounter Summary ---
Author Organization [facility] Address [address] [place] [address] Phone Care Team Providers Care Slipper Maker Name Role Phone Jeff Strickland MD Primary Care Provider Chan Nicholas MD Unavailable [phone] Alan Mccall MD Unavailable [phone] Pepito Haro MD PhD Unavailable [phone] Solange Guido MD Unavailable [phone] Reason for Visit * Consultation (Routine) - Authorized Specialty Diagnoses / Procedures Referred By Contac t Referred To Contact Endocrinology Diagnoses Type 2 diabetes mellitus with chronic kidney disease on chronic dialysis, with long-term current use of insulin (HCC) Jeff Strickland MD [address] [facility] [address] [place] [address] Phone: tel: fax: [facility] (All Locations) Referral ID Status Reason Start Date Expiration Date Visits Requested Visits Authorized [id number] Authorized Specialty Services Required 10/24/2023 11/22/2024 12 12 Encounter Details Date Type Department Care Team (Latest Contact Info) Description 07/23/2024 1:30 PM CDT Office Visit [facility] Endocrinology Metabolism and Lipid [address] [facility] 13th [place] [address] [place] [phone] Gregory Curtis MD [address] [place] [address] Type 2 diabetes mellitus with chronic kidney disease on chronic dialysis, with long-term current use of insulin (HCC) (Primary Dx) Social History Tobacco Use Types Packs/Day Years Used Date Smoking Tobacco: Never Smokeless Tobacco: Never Tobacco Cessation:Counseling Given: Not Answered Alcohol Use Standard Drinks/Week Comments Yes 0 (1 standard drink = 0.6 oz pur e alcohol) rarely [facility] Utilities Answer Date Recorded In the past 12 months has [employer] electric, gas, oil, or water company threatened [...] often do you attend chur ch or muslim services? Never 03/25/2023 Do you belong to any clubs o r organizations such as congregation groups, unions, fraternal or athletic groups, or [...] on file Legal Sex Male 2:23 AM CORRECTIONAL SUPERVISOR Gender Identity Not on file Sexual Orientation Not on file Occupation Industry Job Start Date Job End Date Retired Not on file Not on file Not on file documented as of this encounter Last Filed Vital Signs Vital Sign Reading Time Taken Comments Blood Pressure 146/78 07/23/2024 1:22 PM CDT Pulse 59 07/23/2024 1:22 PM CDT Temperature 36.7 C (98.1 F) 07/23/2024 1:22 PM CDT Respiratory Rate - - Oxygen Saturation - - Inhaled Oxygen Concentration - - Weight 122.3 kg (269 lb 9.6 oz) 07/23/2024 1:22 PM CDT Height 172.7 cm (5' 8) 07/23/2024 1:22 PM CDT Body Mass Index 40.99 07/23/2024 1:22 PM CDT documented in this encounter Patient Instructions * Patient Instructions* Gregory Curtis MD - 07/23/2024 1:30 PM CDT Increase morning lantus to 40 units and evening dose at 35 units Please schedule appointment with CDE for pump options documented in this encounter Plan of Treatment Not on file documented as of this encounter Procedures Procedure Name Priority Date/Time Associated Diagnosis Comments POCT GLUCOSE 24492 Routine 07/23/2024 1: 26 PM CDT Type 2 diabetes mellitus with chronic kidney disease on chronic dialysis, with long-term current use of insulin (HCC) documented in this encounter Results * POCT glucose (07/23/2024 1:26 PM CDT) [facility] Glucose Blood, POC 104 Normal Fasting 70 - 100, Random <200 mg/dL Blood 07/23/2024 1:26 PM CDT Gregory Curtis MD POINT OF CARE TEST ORDERABLES Final Result documented in this encounter Visit Diagnoses Diagnosis Type 2 diabetes mellitus with chronic kidney disease on chronic dialysis, with long-term current use of insulin (HCC)- Primary documented in this encounter Historical Medications * This list may reflect changes made after this encounter. pantoprazole DR (PROTONIX) 40 mg EC tablet Take 1 tablet (40 mg total) by mouth every morning 07/07/2024 doxycycline hyclate 100 mg capsule Take 1 tablet/capsule (100 mg total) by mouth 2 (two) times a day 07/05/2024 clopidogreL (PLAVIX) 75 mg tablet Take 1 tablet (75 mg total) by mouth daily 07/21/2024 added in this encounter Care Teams Slipper Maker Relationship Specialty Start Date End Date Jeff Stirckland MD [address] [place] [address] PCP - General Family Medicine 04/02/18 Chan Nicholas MD [address] [place] [address] Consulting Physician Gastroenterology 11/24/18 Alan Mccall MD [address] [place] [address] Referring Physician Nephrology 11/24/18 Pepito Haro MD PhD [address] [place] [address] Consulting Physician Neurosurgery 12/03/22 Solange Guido MD [address] [facility] [address] [place] [address] Referring Physician Cardiovascular Disease 07/23/23 documented as of this encounter
--- OUTSIDE RECORDS SUMMARY | 2024-07-24 21:10 | XMS_ITS ---
Author Organization [facility] Address [address] [place] [address] Care Team Providers Care Failure Analysis Engineer Name Role Phone Jeff Strickland MD Primary Care Provider Chan Nicholas MD Unavailable Alan Mccall MD Unavailable [phone] Pepito Haro MD PhD Unavailable Solange Guido MD Unavailable [phone] Dialysis Access Sites Type Status Location Placement Date Removal Da te Peritoneal Dialysis Catheter Mid lower abdomen Active Abdomen - Lower, Medial (Navel) Hemodialysis Cath Double Inactive Right Breast - Upper 05/01/2021 Hemodialysis Cath Double Inactive Right Breast - Upper 0 05/02/2021 11/22/2021 Procedures Procedure Name Priority Date/Time Associated Diagnosis Comments POCT GLUCOSE 34870 Routine 07/23/2024 1: 26 PM CDT Type [...] ruled out EGFR Routine 04/13/2024 5:06 AM ETL INFORMATICA ARCHITECT HEMOGLOBIN A1C STAT 04/10/2024 11:41 PM ETL INFORMATICA ARCHITECT LIPID PANEL STAT 04/10/2024 11:41 PM ETL INFORMATICA ARCHITECT from Last 3 Months or Most Recently [...] 300 + = 14 units Active FA-vit Fsvxa-S-xsyl-vitamin D3 (Dialyvite 800-Ultra D) 0.8-2,000 mg-unit tablet [...] total) by mouth 06/04/19 25 Active vitamins A,C,K-rhnx-ctyaor (PreserVision AREDS) 4,296 mcg-226 mg-90 mg capsule [...] warrant further PDT. - Patient returned to [facility] for ongoing care and follow up [...] damage Assessment & Plan (03/09/2024 6:25 PM ETL INFORMATICA ARCHITECT): Vision OD trends mild improvement, though still [...] Since after 2019, has been seeing Dr. Hyltno and Dr. Wall. Hx of PDT OU [...] discussed that genetic results would not change consultant. Given we have exhausted available treatment without [...] 2 weeks and have patient return to [facility] retina in [...] 03/26/2021 Assessment & Plan (03/26/2021 1:17 PM ETL INFORMATICA ARCHITECT): Enlarged mild sella turcica on a routine [...] units Assessment & Plan (03/26/2021 1:17 PM ETL INFORMATICA ARCHITECT): Chronic, uncontrolled, improving A1c today 7.7 % [...] WNL Assessment & Plan (03/26/2021 1:16 PM ETL INFORMATICA ARCHITECT): Pt currently on Levothyroxine 112 mcg oral [...] 11/18/2018 Assessment & Plan (01/21/2019 2:02 PM ETL INFORMATICA ARCHITECT): Symptomatic. Will request for esophageal manometry. Continue [...] well Assessment & Plan (03/26/2021 1:16 PM ETL INFORMATICA ARCHITECT): On statin therapy Tolerating well Last lipid [...] nephrectomy. 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 [id number] Immunizations Immunization Administration Dates Next Due Hep [...] = 0.6 oz pur e alcohol) rarely [facility] Utilities Answer Date Recorded In the [...] on file Legal Sex Male 2:23 AM ETL INFORMATICA ARCHITECT Gender Identity Not on file Sexual Orientation [...] CDT Respiratory Rate 16 04/13/2024 8:33 AM ETL INFORMATICA ARCHITECT Oxygen Saturation 98% 04/13/2024 8:33 AM ETL INFORMATICA ARCHITECT Inhaled Oxygen Concentration - - Weight 122.3 kg (269 lb 9.6 oz) 07/23/2024 1:22 PM CDT Height 172.7 cm (5' 8) 07/23/2024 1:22 PM CDT Body Mass Index 40.99 07/23/2024 1:22 PM CDT Results * POCT glucose (07/23/2024 1:26 PM [...] layers) OS: worsened non-central macular edema Result [facility] Cinthia Chung MD OPHTH TOMOGRAPHY Final [...] blind spot OS: non-specific paracentral changes us Cinthia Chung MD OPH VISUAL FIEL D Final Result * (ABNORMAL) eGFR (04/13/2024 5:06 AM ETL INFORMATICA ARCHITECT) eGFR 5(L) >=60 mL/min/1. 73 m2 Comment: [...] last reviewed 2020. Blood 04/13/2024 5:06 AM ETL INFORMATICA ARCHITECT 04/13/2024 5:31 AM ETL INFORMATICA ARCHITECT us Saul Engle MD LAB BLOOD ORDERABLES Final Resul t [facility] Department [place] [address] * (ABNORMAL) Lipid panel (04/10/2024 11:41 PM ETL INFORMATICA ARCHITECT) Cholesterol 145 30 - 199 mg/dL Comment: [...] on 2017. Triglycerides 453(H) <=149 mg/dL [facility] Comment: Interpretive Data Ages < or [...] on 2017. HDL 22(L) >=40 mg/dL [facility] Comment: Interpretive Data Ages < or [...] 2017. LDL, calculated See Comment <=129 [facility] Comment: Unable to calculate LDL due [...] 3. Chinmay M et al. LYDIA Cardiol. 2019June 17;5(5):540-548. doi: 10.1001/jamacardio.2020.0013 Current Interpretive Data was last revised on 2023. Non-HDL Cholesterol 123 mg/dL [facility] Comment: Interpretive Data Ages [...] [facility] Blood 04/10/2024 11:4 1 PM ETL INFORMATICA ARCHITECT 04/10/2024 11:55 PM ETL INFORMATICA ARCHITECT Nicole Boo MD LAB BLOOD ORDERABLES Final Result [facility] Department [place] [address] from Last 3 Months or Most Recently Relevant to Health Maintenance
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
--- OUTSIDE RECORDS SUMMARY | 2024-07-24 21:10 | XMS_ITS | Continuity of Care Document ---
Author Organization [facility] Address [address] [place] [address] Phone Care Team Providers Care Marketing Consultant Name Role Phone Kee Rodriguez Unavailable Unavailable Procedures Procedure Date Office/outpatient Visit, Est Eye Exam Established Pt Advance Directives Directive Yes / No Effective Date File Name No Information Encounters Encounter Description Practice Location Reason(s) For Visit Diagnoses Date Provider Providers Copied on Encounter Office/outpat ient Visit, Est [facility], [address] [place] [address] [address], [place], [place], [id number], tel:[phone] [facility] No Information Mar-0 2-201 0 Krishnasamy Kee. [address] [facility] [place] [address], [place], [place], [facility], [place]. tel:[phone] [facility], [address] [place] [address] [address], [place], [place], [address], tel:[phone] [facility] No Information Nhan-3 0-200 7 David OD Freddy. [address], [place], [place], [facility], [place]. tel:[phone] Family History Family Member Type Diagnosis Age [...]
[2024-07-24 21:14] VITALS: PULSE 69; RESP 17; TEMP 36.7; O2SAT 98
--- NOTE | 2024-07-24 21:28 | ECG_ITS ---
Test Date: 2024-07-24 21:46:57 Measurements Intervals [place] Rate: 69 P: 56 VT: 175 QRS: -74 QRSD: 133 T: 40 QT: 445 QTc: 478 Interpretive Statements SINUS RHYTHM RIGHT BUNDLE BRANCH BLOCK LEFT ANTERIOR FASCICULAR BLOCK CANNOT R/O SEPTAL INFARCT, AGE INDETERMINATE BASELINE ARTIFACT- I, II, III, AVR, AVL, AVF, V2 ABNORMAL ECG Compared to ECG 05/07/2024 13:39:28 RIGHT BUNDLE BRANCH BLOCK NOW PRESENT Electronically Signed On 07-25-2024 07:18:17 CDT by Dilan Preciado D.O.
--- OUTSIDE RECORDS SUMMARY | 2024-07-24 21:33 | XMS_ITS | Encounter Summary ---
Author Organization [facility] Address [address] [place] [address] Phone Care Team Providers Care Contract Processor Name Role Phone Jeff Strickland MD Primary Care Provider Chan Nicholas MD Unavailable Alan Mccall MD Unavailable [phone] Lorna Lantigua MD Unavailable [phone] Juliette Savage RN Unavailable [phone] Pepito Haro MD PhD Unavailable Solange Guido MD Unavailable Letha Gil RN Unavailable Encounter Details Date Type Department Care Team (Late st Contact Info) Description 05/02/2021 Ophth Exam [facility] [address] [place] [address] 1st [place] [address] Corina Ventura MD PhD [address] [facility] [address] [place] [address] Social History Tobacco Use Types [...] on file Legal Sex Male 2:23 AM 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 04/08/2023 04/10/2023 07/07/2023 3:06 AM C DT COVID: Suspected 04/10/2024 04/10/2024 04/11/2024 1:24 AM BODY COMPONENT ENGINEER C. difficile suspected 04/11/2024 04/11/202404/11 1:21 PM BODY COMPONENT ENGINEER documented as of this encounter Eye Exam [...] arcade Normal Periphery Normal Normal Care Teams Contract Processor Relationship Specialty Start Date End Date Jeff Strickland MD [address] [address] PCP - General Family Medicine 04/02/18 Chan Nicholas MD [facility] [address] [address] Consulting Physician Gastroenterology 11/24/18 Alan Mccall MD [facility] [address] [address] Referring Physician Nephrology 11/24/18 Lorna Lantigua MD [facility] [address] [address] Consulting Physician Cardiology 11/24/18 07/22/23 Juliette Savage, RN [address] [place] [address] Nurse Navigator 06/04/21 03/14/22 Pepito Haro MD PhD [address] [place] [address] Consulting Physician Neurosurgery 12/03/22 Solange Guido MD [address] [facility] [address] [place] [address] Referring Physician Cardiovascular Disease 07/23/23 Letha Gil, RN [address] [facility] [address] [place] [address] SHOP Outpatient Wheel Setter 04/14/24 04/18/24 documented as of this encounter
--- OUTSIDE RECORDS SUMMARY | 2024-07-24 21:33 | XMS_ITS | Encounter Summary ---
Author Organization [facility] Address [facility] [place] [address] Care Team Providers Care Mba Intern Name Role Phone Deandre Bojorquez MD Unavailable [phone] Jeff Strickland MD Primary Care Provider [phone] Encounter Details Date Type Department Care Team (Late st Contact Info) Description 04/10/2023 Lab Requisition [facility] MAIN LAB [address] [place] [id number] Alan Davenport MD [facility] [place] [address] Social History Tobacco Use Types Packs/Day Years Used Date Smoking Tobacco: Never Smokeless Tobacco: Never Alcohol Use Standard Drinks/Week Comments Not Currently 0 (1 standard drink = 0.6 oz pur e alcohol) socially in past Sex and Gender Information Value Date Recorded Sex Assigned at Male 07/02/2021 2:37 PM CDT Legal Sex Male 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 Gender Identity Male 07/02/2021 2:37 PM CDT [...] Description 08/04/2024 11:30 AM CDT Appointment [facility] MRI [address] [place] [address] Thomas Mendoza MD [address] [place] [address] 2L [place] [address] 08/04/2024 1:30 PM CDT Office Visit [facility] - Urology [address] [place] [address] Thomas Mendoza MD [address] [place] [address] [address]L [place] [address] 09/13/2024 10:40 AM CDT Office Visit [facility] - Endocrinology [address] [place] [address], [place] [address] Niraj Turner MD [address] [place] [address] 2L Div [place] [address] 10/13/2024 1:00 PM CDT Office Visit [facility] - Cardiology [address] [facility] [place] [address] [place] [address] Maylin Cutler DO [address] [facility] [address] [place] [address] Scheduled Procedures Name Priority Associated Diagnoses Date/Ti me CCL STAGED PERC CORONARY INTERVENTION Abnormal stress test Dyspnea on exertion Pre-kidney transplant, listed Coronary artery disease with angina pectoris, unspecified vessel or lesion type, unspecified whether [place] or transplanted heart Abnormal findings on cardiac catheterization documented as of this encounter Procedures Procedure Name Priority Date/Time Associated Diagnosis Comments HOLD HLA SPECIMEN Routine 04/02/2023 3:0 1 PM VAN DRIVER HELPER documented in this encounter Results * HOLD HLA SPECIMEN (04/02/2023 3:01 PM VAN DRIVER HELPER) Hold HLA Specimen 04/10/2023 4:01 PM VAN DRIVER HELPER [facility] Comment:The Hold HLA specime n has been received into the lab and will be held for 5 years at 4 degrees. Blood BLOOD SPECIMEN / Unknown 04/02/2023 3:01 PM VAN DRIVER HELPER 04/10/2023 3:01 PM VAN DRIVER HELPER Alan Davenport MD LAB - BLOOD BANK ORDERABLES F inal Result [facility] [address] documented in this encounter Visit Diagnoses Not on filedocumented in this encounter Care Teams Mba Intern Relationship Specialty Start Date End Date Jeff Strickland MD [address] [place] [address] PCP - General 03/05/18 [place] [address] [place] [address] Orthopedic Surgery 03/28/17 documented as of this encounter
--- OUTSIDE RECORDS SUMMARY | 2024-07-24 21:33 | XMS_ITS | Encounter Summary ---
Author Organization [facility] Address [address] [place] [address] Care Team Providers Care Assessment Manager Name Role Phone Deandre Bojorquez MD Unavailable [phone] Jeff Strickland MD Primary Care Provider [phone] Encounter Details Date Type Department Care Team (Late st Contact Info) Description 02/07/2023 Lab Requisition [facility] MAIN LAB [address] [place] [phone] Alan Davenport MD [facility][note 3]1 [facility] OF [place] [address] Social History Tobacco Use Types Packs/Day Years Used Date Smoking Tobacco: Never Smokeless Tobacco: Never Alcohol Use Standard Drinks/Week Comments Not Currently 0 (1 standard drink = 0.6 oz pur e alcohol) socially in past Sex and Gender Information Value Date Recorded Sex Assigned at Male 07/02/2021 2:37 PM CDT 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 Gender Identity Male 07/02/2021 2:37 PM CDT [...] CDT Appointment [facility] MRI [address] [place] [address] Thomas Mendoza MD [address] [place] [address] 2[address] [place] [address] 08/04/2024 1:30 PM CDT Office Visit [facility] - Urology [address] [place] [address] Thomas Mendoza MD [address] [place] [address] 2[address] [place] [address] 09/13/2024 10:40 AM CDT Office Visit [facility] - Endocrinology [address] [place] [address], [place] [address] Niraj Turner MD [address] [place] [address] 2L [place] [address] 10/13/2024 1:00 PM CDT Office Visit [facility] - Cardiology [address] [facility] [place] [address] [place] [address] Maylin Cutler DO [address] [facility] [address] [place] [address] Scheduled Procedures Name Priority Associated Diagnoses Date/Ti me CCL STAGED PERC CORONARY INTERVENTION Abnormal stress test Dyspnea on exertion Pre-kidney transplant, listed Coronary artery disease with angina pectoris, unspecified vessel or lesion type, unspecified whether [place] or transplanted heart Abnormal findings on cardiac catheterization documented as of this encounter Procedures Procedure Name Priority Date/Time Associated Diagnosis Comments HOLD HLA SPECIMEN Routine 2023 7:5 8 AM AERIAL GUNNER documented in this encounter Results * HOLD HLA SPECIMEN (2023 7:58 AM AERIAL GUNNER) Hold HLA Specimen 02/07/2023 9:01 AM AERIAL GUNNER [facility] Comment:The Hold HLA specime n has been received into the lab and will be held for 5 years at 4 degrees. Blood BLOOD SPECIMEN / Unknown 2023 7:58 AM AERIAL GUNNER 02/07/2023 7:59 AM AERIAL GUNNER Alan Davenport MD LAB - BLOOD BANK ORDERABLES F inal Result [facility] ([employer]) [address] documented in this encounter Visit Diagnoses Not on filedocumented in this encounter Care Teams Assessment Manager Relationship Specialty Start Date End Date Jeff Strickland MD [address] [place] [address] PCP - General 03/05/18 [place] [address] [place] [address] Orthopedic Surgery 03/28/17 documented as of this encounter
--- OUTSIDE RECORDS SUMMARY | 2024-07-24 21:33 | XMS_ITS | CONTINUITY OF CARE DOCUMENT ---
Author Name sally zavala Address Unknown Organization [facility] Address [address] [facility] [address] [place] [address] Phone [phone] Care Team Providers Care Chemical Handler Name Role Phone Jason Becerra MD Unavailable [phone] DONNIE WOOD MD Unavailable DONNIE WOOD MD [...] In-person encounter Office Visit Jason Becerra MD [facility] - In-person encounter Office Visit Jason Becerra MD [facility] Fatigue - In-person encounter Office Visit Jason Becerra MD [facility] Chest pain-type to be determined - In-person encounter Office Visit Jason Becerra MD [place] [facility] - In-person encounter Office Visit Jason Becerra MD [facility] Cardiology examinationDiabetes, Type 2HyperlipidemiaHypertens ionDiastolic heart failureEdemaSleep apnea VITAL SIGNS Date Observation Value Provider Body Mass Index (Ratio) 38.39 kg/m2 Janes Becerar MD blood pressure, diastolic 80 mm[Hg] Cy [...] LinkLogic 3.5-5.2 sodium, serum 141 mmol/L [employer] [phone]/09/26 urea nitrogen/creatini ne ratio, serum 19 [employer]ic [...] ORAL TABLET active Take 1 tablet daily Amyidamond Montemayor #60, 30 days supply, Prescribed by ISRAEL, Filled 05/07/2018 ATORVASTATIN CALCIUM 40 MG ORAL TABLET active Take 1 tablet daily Amy Montemayor #90, 90 days supply, Prescribed by DONNIE WOOD, Filled 05/06/2018 SOCIAL HISTORY Date Observation Value Provider social history E&M Marital Statu s: Monica oropeza: 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 Jason Becerra MD social history reviewed E&M revi ewed - no changes required Jason Becerra MD smoking status Never smoker Amy doan FAMILY HISTORY Family Member Condition First Degree Blood Relative No Known Fam steven History INSURANCE PROVIDERS Payer name Policy type / Coverage type [place] red republican ID AETNA CHOICE POS II Commercial insurance company [id number] ADVANCE DIRECTIVES Name Date POWER OF SEED CORN MANAGER PRODUCTION TREATMENT PLAN Date Name Performer Cardiology follow [...] BASIC METABOLIC PANE L W/EGFR DLCO - 71835 FRC - 06703 FVC - 27262 HISTORY OF PROCEDURES Procedure Date Procedure Name Provider Procedure Notes S tatus EKG Jason eBcerra MD complete d Regadenoson, 4 units Jason Becerra MD completed Cardiolite, 2 units Jason Becerra MD completed SPECT Images Jason Becerra MD comple wendy Stress EKG Jason Becerra MD complete d FVC / MVV - 83166 Jason Becerra MD c ompleted BLOOD COUNT HEMOGLOBIN Jason Becerra MD completed FRC - 06547 Jason Becerra MD complet ed SpO2 w/o 6min walk/titration Jason Becerra MD completed DLCO - 03046 Jason nguyen DEMETRIS Becerra MD complete d
--- OUTSIDE RECORDS SUMMARY | 2024-07-24 21:33 | XMS_ITS | Clinical Summary ---
Author Organization [facility] Address [address] [place] [address] Phone Care Team Providers Care Boat Carpenter Mechanic Name Role Phone Jeff Strickland MD Primary Care Provider [phone] Allergies No known active allergies Medications pantoprazole [...] tablet Take 112 mcg by mouth daily cook fast food. Active aspirin (ANGELLA) 325 mg tablet Take 325 mg by mouth daily. Active Vit C-Vit I-Twrogu-YvQq-L utein (PRESERVISION) 226 mg-200 unit -5 mg-0.8 [...] Comments Blood Pressure 167/77 02/04/2019 9:16 AM SYSTEMS DESIGN ENGINEER Pulse 64 02/04/2019 9:16 AM SYSTEMS DESIGN ENGINEER Temperature 36.5 C (97.7 F) 02/04/2019 9:16 AM SYSTEMS DESIGN ENGINEER Respiratory Rate 16 02/04/2019 9:16 AM SYSTEMS DESIGN ENGINEER Oxygen Saturation 97% 02/04/2019 9:16 AM SYSTEMS DESIGN ENGINEER Inhaled Oxygen Concentration - - Weight 113.4 kg (250 lb) 02/04/2019 9:16 AM SYSTEMS DESIGN ENGINEER Height 175.3 cm (5' 9) 02/04/2019 9:16 AM SYSTEMS DESIGN ENGINEER Body Mass Index 36.92 02/04/2019 9:16 AM SYSTEMS DESIGN ENGINEER Plan of Treatment Health Maintenance Due Date [...] d or Tdap) 04/10/2026 04/10/2016, 04/09/[address] [facility] BLUE ACCESS/TRUE BLUE PPO AETNA MEDICARE SUPPLEMENT PPO [facility] BLUE ACCESS/TRUE BLUE PPO Care Teams Boat Carpenter Mechanic Relationship Specialty Start Date End Date Jeff Strickland MD [address] [place] [phone] PCP - General Family Practice 01/01/19
--- OUTSIDE RECORDS SUMMARY | 2024-07-24 21:33 | XMS_ITS | Encounter Summary ---
Author Organization [facility] Address [facility] [place] [address] Care Team Providers Care Ball Mill Mixer Name Role Phone Deandre Bojorquez MD Unavailable [phone] Jeff Strickland MD Primary Care Provider [phone] Encounter Details Date Type Department Care Team (Late st Contact Info) Description 05/29/2023 Lab Requisition [facility] MAIN LAB [address] [place] [phone] Alan Davenport MD [facility]1 [facility] [place] [address] Social History Tobacco Use Types Packs/Day Years Used Date Smoking Tobacco: Never Smokeless Tobacco: Never Alcohol Use Standard Drinks/Week Comments Not Currently 0 (1 standard drink = 0.6 oz pur e alcohol) socially in past Sex and Gender Information Value Date Recorded Sex Assigned at Male 07/02/2021 2:37 PM CDT Legal Sex Male 10:14 PM PROVIDER ENGAGEMENT EXECUTIVE Gender Identity Male 07/02/2021 2:37 PM CDT [...] Info) Description 08/04/2024 11:30 AM CDT Appointment [facility] MRI [address] [place] [address] Thomas Mendoza MD [address] [place] [address] 2L [place] [address] 08/04/2024 1:30 PM CDT Office Visit [facility] - Urology [address] [place] [phone] Thomas Mendoza MD [address] [place] [address] 2[address] [place] [address] 09/13/2024 10:40 AM CDT Office Visit [facility] - Endocrinology [address] [place] [address], [place] [address] Niraj Turner MD [address] [place] [address] 2L [place] [address] 10/13/2024 1:00 PM CDT Office Visit [facility] - Cardiology [address] [facility] [place] [address] [place] [phone] Maylin Cutler DO [address] [facility] [address] [place] [address] Scheduled Procedures Name Priority Associated Diagnoses Date/Ti me CCL STAGED PERC CORONARY INTERVENTION Abnormal stress test Dyspnea on exertion Pre-kidney transplant, listed Coronary artery disease with angina pectoris, unspecified vessel or lesion type, unspecified whether [place] or transplanted heart Abnormal findings on cardiac catheterization documented as of this encounter Procedures Procedure Name Priority Date/Time Associated Diagnosis Comments HOLD HLA SPECIMEN Routine 05/21/2023 9:2 4 AM CDT documented in this encounter Results * HOLD HLA SPECIMEN (05/21/2023 9:24 AM CDT) Hold HLA Specimen 05/29/2023 10:30 AM CDT [facility] Comment:The Hold HLA specime n has been received into the lab and will be held for 5 years at 4 degrees. Blood BLOOD SPECIMEN / Unknown 05/21/2023 9:24 AM CDT 05/29/2023 9:24 AM CDT Alan Davenport MD LAB - BLOOD BANK ORDERABLES F inal Result [facility] [address] documented in this encounter Visit Diagnoses Not on filedocumented in this encounter Care Teams Ball Mill Mixer Relationship Specialty Start Date End Date Jeff Strickland MD [address] [place] [address] PCP - General 03/05/18 [place] [address] [place] [address] Orthopedic Surgery 03/28/17 documented as of this encounter
--- OUTSIDE RECORDS SUMMARY | 2024-07-24 21:33 | XMS_ITS | Encounter Summary ---
Author Organization [facility] Address [facility] [place] [address] Care Team Providers Care Small Business Director Name Role Phone Deandre Bojorquez MD Unavailable [phone] Jeff Strickland MD Primary Care Provider [phone] Encounter Details Date Type Department Care Team (Late st Contact Info) Description 07/31/2023 Lab Requisition [facility] MAIN LAB [address] [place] [phone] Alan Davenport MD [facility] [place] [address] Social History Tobacco Use Types Packs/Day Years Used Date Smoking Tobacco: Never Smokeless Tobacco: Never Alcohol Use Standard Drinks/Week Comments Not Currently 0 (1 standard drink = 0.6 oz pur e alcohol) socially in past Sex and Gender Information Value Date Recorded Sex Assigned at Male 07/02/2021 2:37 PM CDT Legal Sex Male 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 Gender Identity Male 07/02/2021 2:37 PM CDT [...] CDT Appointment [facility] MRI [address] [place] [address] Thomas Mendoza MD [address] [place] [address] 2[address] [place] [address] 08/04/2024 1:30 PM CDT Office Visit [facility] - Urology [address] [place] [phone] Thomas Mendoza MD [address] [place] [address] 2L [place] [address] 09/13/2024 10:40 AM CDT Office Visit [facility] - Endocrinology [address] [place] [address], [place] [address] Niraj Turner MD [address] [place] [address] 2L [place] [address] 10/13/2024 1:00 PM CDT Office Visit [facility] - Cardiology [address] [facility] [place] [address] [place] [address] Maylin Cutler DO [address] [facility] [address] [place] [address] Scheduled Procedures Name Priority Associated Diagnoses Date/Ti me CCL STAGED PERC CORONARY INTERVENTION Abnormal stress test Dyspnea on exertion Pre-kidney transplant, listed Coronary artery disease with angina pectoris, unspecified vessel or lesion type, unspecified whether [place] or transplanted heart Abnormal findings on cardiac catheterization documented as of this encounter Procedures Procedure Name Priority Date/Time Associated Diagnosis Comments HOLD HLA SPECIMEN Routine 07/23/2023 2:0 5 PM CDT documented in this encounter Results * HOLD HLA SPECIMEN (07/23/2023 2:05 PM CDT) Hold HLA Specimen 07/31/2023 3:32 PM CDT [facility] Comment:The Hold HLA specime n has been received into the lab and will be held for 5 years at 4 degrees. Blood BLOOD SPECIMEN / Unknown 07/23/2023 2:05 PM CDT 07/31/2023 2:06 PM CDT Alan Davenport MD LAB - BLOOD BANK ORDERABLES F inal Result [facility] [address] documented in this encounter Visit Diagnoses Not on filedocumented in this encounter Care Teams Small Business Director Relationship Specialty Start Date End Date Jeff Strickland MD [address] [place] [address] PCP - General 03/05/18 [place] [address] [place] [address] Orthopedic Surgery 03/28/17 documented as of this encounter
--- OUTSIDE RECORDS SUMMARY | 2024-07-24 21:34 | XMS_ITS ---
Author Organization [facility] Address [facility] [place] [address] Care Team Providers Care Bicycle Service Technician Name Role Phone Jeff Strickland MD Primary Care Provider Chan Nicholas MD Unavailable [phone] Alan Mccall MD Unavailable [phone] Pepito Haro MD PhD Unavailable Solange Guido MD Unavailable [phone] Active Problems Problem Noted Date Diagnosed Date [...] warrant further PDT. - Patient returned to [facility] for ongoing care and follow [...] damage Assessment & Plan (03/09/2024 6:25 PM TOOL DISTRIBUTOR): Vision OD trends mild improvement, though still [...] 03/26/2021 Assessment & Plan (03/26/2021 1:17 PM TOOL DISTRIBUTOR): Enlarged mild sella turcica on a routine [...] units Assessment & Plan (03/26/2021 1:17 PM TOOL DISTRIBUTOR): Chronic, uncontrolled, improving A1c today 7.7 % [...] WNL Assessment & Plan (03/26/2021 1:16 PM TOOL DISTRIBUTOR): Pt currently on Levothyroxine 112 mcg oral [...] 11/18/2018 Assessment & Plan (01/21/2019 2:02 PM TOOL DISTRIBUTOR): Symptomatic. Will request for esophageal manometry. Continue [...] well Assessment & Plan (03/26/2021 1:16 PM TOOL DISTRIBUTOR): On statin therapy Tolerating well Last lipid [...] nephrectomy. 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 L0uALAN Current Treatment and Therapy Plans No current [...] were not included. Kendall Carl 1955 Referring Fish Hatchery Specialist: Alan Mccall Dialysis Info: NOD GFR 13 Type: Time: (Not currently on dialysis) days Blood Type: O NEG Body mass index is 37.36 kg/m . ALERTS Latent Print Examiner: needs to establish Past Medical History: Diagnosis Date Arthropathy RA. Dr Strickland manages. 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 CKD (chronic kidney disease), stage V Community acquired pneumonia 2018 [facility] hospitalized. Diabetes mellitus 20 years. Lantus pen. Esophageal reflux takes med Hypercholesteremia 5-10 yrs meds Hypertension takes meds Hypothyroidism meds 20 years Kidney stones 5-6 years ago had 2 in the same year. Malignancy right kidney 2012 Obstructive sleep apnea 3 years. [facility]. [facility] remember doctors name Renal cell carcinoma [...] file Gets together: Not on file Attends faith service: Not on file Active member of [...] is the impression of this social services aide that Kendall Carl has several positive factors for Kidney transplant candidacy from a psychosocial perspective. Patient appears to have appropriate knowledge of illness. Patient has sufficient insurance coverage and stable financial situation for post transplant needs. No concerns regarding substance abuse, legal issues, or mental health needs. Patient has adequate support system and appropriate discharge plan. Plan: group social worker to provide supportive services as needed. Patient appears to be a reasonable candidate for transplant from a psychosocial perspective. -Post transplant arrangement forms are needed prior to being listed. -Updated toxicology results needed, per protocol Psychiatric Consult Recommended: No Transplant Needle Process Felt Goods Supervisor: Joy Tam LCSW RD: 11/09/2019 BMI= [...] my fitness pal or my food assistant softball coach) - Consume no more than 2000 calories a day E-mailed pt's a 2000 calorie, CKD meal plan. Items Still Pending: Clinic, colonoscopy Acute pain of left shoulder 01/25/2019 03/25/2023 Non-cardiac chest pain 11/18/201803/25 Assessment & Plan (01/21/2019 2:02 PM TOOL DISTRIBUTOR): The pain is persistent. The patient described [...] has had extensive cardiac workup by the marshmallow machine worker including coronary angiogram. He has chest [...]
--- OUTSIDE RECORDS SUMMARY | 2024-07-24 21:34 | XMS_ITS | Encounter Summary ---
Author Organization [facility] Address [facility]3 [place] [address] Care Team Providers Care Inspector Repairer Sandstone Name Role Phone Deandre Bojorquez MD Unavailable [phone] Jeff Strickland MD Primary Care Provider [phone] Encounter Details Date Type Department Care Team (Late st Contact Info) Description 10/28/2023 Lab Requisition [facility] MAIN LAB [address] [place] [phone] Alan Davenport MD [facility] [place] [address] Social History Tobacco Use Types Packs/Day Years Used Date Smoking Tobacco: Never Smokeless Tobacco: Never Alcohol Use Standard Drinks/Week Comments Not Currently 0 (1 standard drink = 0.6 oz pur e alcohol) socially in past Sex and Gender Information Value Date Recorded Sex Assigned at Male 07/02/2021 2:37 PM CDT Legal Sex Male 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 Gender Identity Male 07/02/2021 2:37 PM CDT [...] Info) Description 08/04/2024 11:30 AM CDT Appointment [facility] MRI [address] [place] [address] Thomas Mendoza MD [address] [place] [address] 2L [place] [address] 08/04/2024 1:30 PM CDT Office Visit [facility] - Urology [address] [place] [phone] Thomas Mendoza MD [address] [place] [address] 2L [place] [address] 09/13/2024 10:40 AM CDT Office Visit [facility] - Endocrinology [address] [place] [address], [place] [address] Niraj Turner MD [address] [place] [address] 2L Div [place] [address] 10/13/2024 1:00 PM CDT Office Visit [facility] - Cardiology [address] [facility] [place] [address] [place] [address] Maylin Cutler DO [address] [facility] [address] [place] [address] Scheduled Procedures Name Priority Associated Diagnoses Date/Ti me CCL STAGED PERC CORONARY INTERVENTION Abnormal stress test Dyspnea on exertion Pre-kidney transplant, listed Coronary artery disease with angina pectoris, unspecified vessel or lesion type, unspecified whether [place] or transplanted heart Abnormal findings on cardiac catheterization documented as of this encounter Procedures Procedure Name Priority Date/Time Associated Diagnosis Comments HOLD HLA SPECIMEN Routine 10/22/2023 3:5 0 PM CDT documented in this encounter Results * HOLD HLA SPECIMEN (10/22/2023 3:50 PM CDT) Hold HLA Specimen 10/28/2023 5:00 PM CDT [facility] Comment:The Hold HLA specime n has been received into the lab and will be held for 5 years at 4 degrees. Blood BLOOD SPECIMEN / Unknown 10/22/2023 3:50 PM CDT 10/28/2023 3:50 PM CDT Alan Davenport MD LAB - BLOOD BANK ORDERABLES F inal Result [facility] [address] documented in this encounter Visit Diagnoses Not on filedocumented in this encounter Care Teams Inspector Repairer Sandstone Relationship Specialty Start Date End Date Jeff Strickland MD [address] [place] [address] PCP - General 03/05/18 [place] [address] [place] [address] Orthopedic Surgery 03/28/17 documented as of this encounter
--- OUTSIDE RECORDS SUMMARY | 2024-07-24 21:34 | XMS_ITS ---
Author Organization [facility] Address [address] [place] [address] Care Team Providers Care Director Of Intercollegiate Athletics Name Role Phone Jeff Strickland MD Primary Care Provider Chan Nicholas MD Unavailable Alan Mccall MD Unavailable Pepito Haro MD PhD Unavailable [phone] Solange Guido MD Unavailable Dialysis Access Sites Type Status Location Placement Date Removal Da te Peritoneal Dialysis Catheter Mid lower abdomen Active Abdomen - Lower, Medial (Navel) Hemodialysis Cath Double Inactive Right Breast - Upper 05/01/2021 Hemodialysis Cath Double Inactive Right Breast - Upper 0 05/02/2021 11/22/2021 Procedures Procedure Name Priority Date/Time Associated Diagnosis Comments POCT GLUCOSE [id number] Routine 07/23/2024 1: 26 PM CDT Type [...] ruled out EGFR Routine 04/13/2024 5:06 AM NAPKIN BAND WRAPPER HEMOGLOBIN A1C STAT 04/10/2024 11:41 PM NAPKIN BAND WRAPPER LIPID PANEL STAT 04/10/2024 11:41 PM NAPKIN BAND WRAPPER from Last 3 Months or Most Recently [...] 300 + = 14 units Active FA-vit Ucwwc-X-vckd-vitamin D3 (Dialyvite 800-Ultra D) 0.8-2,000 mg-unit tablet [...] total) by mouth 06/04/19 25 Active vitamins A,C,J-gfsu-kqoymy (PreserVision AREDS) 4,296 mcg-226 mg-90 mg capsule [...] warrant further PDT. - Patient returned to [facility] for ongoing care and follow [...] damage Assessment & Plan (03/09/2024 6:25 PM NAPKIN BAND WRAPPER): Vision OD trends mild improvement, though still [...] discussed that genetic results would not exchange teller. Given we have exhausted available treatment without [...] 03/26/2021 Assessment & Plan (03/26/2021 1:17 PM NAPKIN BAND WRAPPER): Enlarged mild sella turcica on a routine [...] units Assessment & Plan (03/26/2021 1:17 PM NAPKIN BAND WRAPPER): Chronic, uncontrolled, improving A1c today 7.7 % [...] WNL Assessment & Plan (03/26/2021 1:16 PM NAPKIN BAND WRAPPER): Pt currently on Levothyroxine 112 mcg oral [...] 11/18/2018 Assessment & Plan (01/21/2019 2:02 PM NAPKIN BAND WRAPPER): Symptomatic. Will request for esophageal manometry. Continue [...] well Assessment & Plan (03/26/2021 1:16 PM NAPKIN BAND WRAPPER): On statin therapy Tolerating well Last lipid [...] nephrectomy. 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 [id number] Immunizations Immunization Administration Dates Next Due Hep [...] = 0.6 oz pur e alcohol) rarely [facility] Utilities Answer Date Recorded In the [...] place to sleep or slept in a detention (including now)? 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 Sex Male 2:23 AM NAPKIN BAND WRAPPER Gender Identity Not on file Sexual Orientation [...] CDT Respiratory Rate 16 04/13/2024 8:33 AM NAPKIN BAND WRAPPER Oxygen Saturation 98% 04/13/2024 8:33 AM NAPKIN BAND WRAPPER Inhaled Oxygen Concentration - - Weight 122.3 [...] layers) OS: worsened non-central macular edema Result [facility] Cinthia Chung MD OPHTH TOMOGRAPHY Final Result [...] Result * (ABNORMAL) eGFR (04/13/2024 5:06 AM NAPKIN BAND WRAPPER) eGFR 5(L) >=60 mL/min/1. 73 m2 Comment: [...] last reviewed 2020. Blood 04/13/2024 5:06 AM NAPKIN BAND WRAPPER 04/13/2024 5:31 AM NAPKIN BAND WRAPPER us Saul Engle MD LAB BLOOD ORDERABLES Final Resul t [facility] Department [place] [address] * (ABNORMAL) Lipid panel (04/10/2024 11:41 PM NAPKIN BAND WRAPPER) Cholesterol 145 30 - 199 mg/dL Comment: [...] on 2017. Triglycerides 453(H) <=149 mg/dL [facility] Comment: Interpretive [...] on 2017. HDL 22(L) >=40 mg/dL [facility] Comment: [...] 2017. LDL, calculated See Comment <=129 [facility] Comment: Unable to calculate [...] [facility] Blood 04/10/2024 11:4 1 PM NAPKIN BAND WRAPPER 04/10/2024 11:55 PM NAPKIN BAND WRAPPER Nicole Boo MD LAB BLOOD ORDERABLES Final Result [facility] Department [place] [address] from Last 3 Months or Most Recently Relevant to Health Maintenance
--- OUTSIDE RECORDS SUMMARY | 2024-07-24 21:34 | XMS_ITS | Clinical Summary ---
Author Organization [facility] [place] Address [address] [place] [address] Care Team Providers Care Paid Search Manager Name Role Phone Deandre Bojorquez MD Unavailable [phone] Jeff Strickland MD Primary Care Provider Source Comments [facility],non-owned Affiliates and Associated Physician Practices is amultiple site organization consisting of ambulatory clinics and hospital sitesin [place], [place], [place] and [place]. This disclosure is being madepursuant to the Care Everywhere program and may not contain all information available regarding this patient. Last updated 17.[facility] Allergies Active Allergy Reactions Criticality Noted [...] (Aspirin 81) 81 MG tabletIndication s:CAD in [place] artery Take 1 (one) tablet by mouth once daily 90 tablet 3 024 Active atorvastatin (Lipitor) 80 MG tabletIndication s:Coronary artery disease involving [place] coronary artery of [place] heart without angina pectoris Take 1 (one) tablet by mouth once daily 90 tablet 3 024 Active B Licdnxe-B-Cftoq Acid (Dialyvite 800) 0.8 MG 1 tablet Orally Once a day for 30 day(s) Active lisinopril (Prinivil; Zestril) 20 MG tabletIndication s:Coronary artery disease involving [place] coronary artery of [place] heart without angina pectoris,Resista nt hypertension Take [...] 20 MG tabletIndication s:Coronary artery disease involving [place] coronary artery of [place] heart without angina pectoris Take 1 [...] 145 MG tabletIndication s:Coronary artery disease involving [place] coronary artery of [place] heart without angina pectoris Take 1 [...] were not included. Grace Interiano 1955 Referring Admeasurer: Alan Mccall Dialysis Info: Type: PD--> HD-->PD Time: 01/17/2020 Blood Type: O NEG Body mass index is 37.54 kg/m . ALERTS: Dr. Mendoza following enhancing lesion noted to upper pole of the left kidney. IR biopsy confirming oncocytoma in 07/2020. Paper Hanger: Nadia Stock MD ESRD r/t DM2 and HTN Past Medical History: Diagnosis Date Arthropathy Dr Strickland manages. CHF (congestive heart failure) (CMS/HCC) 2 yrs ago Internet Researcher is Dr. Becerra in [place]. CKD (chronic kidney disease), stage V (CMS/HCC) Community acquired pneumonia 2018 [facility] hospitalized. Diabetes mellitus (CMS/HCC) 20 years. [facility] Paper Hanger Dr. Davis at [facility]. 03/26/21 last seen. Esophageal reflux takes med [...] on CPAP Renal cell carcinoma (CMS/HCC) [address] [facility] Pruett surgeon. followed up every 6 [...] opinion statement. Am J Transplant. 2020;21(2):460-474. doi: 10.1111/ajt.31464. Epub 2019Dec 09. PMID: [id number]. Urology: 08/06/2023 Attestation signed by Thomas Mendoza [...] CK7 and BerEP4. If this biopsy is congressional representative of the entire lesion, it would [...] Krystal Abel, RN Sent: 03/28/2022 2:07 PM ROUGH CARPENTER To: Martinez Sandhu MD, * Hello. I [...] in Nov. 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 We reviewed the surgical pathology report. He may restart his baby aspirin. At this time, I recommend a follow up MRI pituitary protocol in 3- 6 months with a visit with me after imaging and patient is agreeable. Strict return precautions were reviewed. H CARPENTER Cardiology: 07/14/2024 Assessment & Plan 1. Chronic [...] or MRA given ESRD 4. Atherosclerosis of [place] coronary artery of [place] heart without angina pectoris 5. Hypertriglyceridemia -H/o PCI to mLAD in 07/2020, NM stress negative for ischemia in 10/2022 -Aspirin 81 mg daily, atorvastatin 80 mg daily, fenofibrate 145 mg daily -CMP, fasting lipid panel, and A1c 6. Type 2 diabetes mellitus with other specified complication, unspecified whether fci insulin use (HCC) -A1c 6.4% in 03/2023, [...] Reviewed calcifications on CT. CT reviewed at [facility] 06/24/[address] Flores. He deferred decision asking for review by additional surgeons. CT reviewed today with Dr Davenport and Dr Lane. Calcifications doable. Pt to remain listed for transplant (inactive pending additional work up). 12/19/2022 Committee Review Decision: Make Inactive Committee Discussion Details: Pt was presented at [facility] to make inactive on the kidney txp wait list. Reviewed pt in [facility]VA, I/P at [facility] 11/29 - 12/03. Sternal Fxr, T2 & T12 thoracic spinal fxr. Likely to get sternal plate surgery. Pt unable to complete annual txp testing, annual cardiololgy appt, Urology appt at this time. Per team, make inactive on wait list. 05/02/2022: Induction Method: Immunosuppression Induction Method/Plan: Antithymocyte globulin (rabbit) (Thymoglobulin) 3 mg/kg Committee Discussion Details: Pt brought to [facility] to discuss possible listing. -Reviewed PMH and [...] imaging was previously discussed at [facility] on 03/28/2022 and again today. Radiology unable to rule out cancer on imaging. Team decision after [facility] 03/28/2022 was to have pt complete left [...] Discussion Details: Pt brought to [facility] to review recent CT imaging concerning for [...] Discussion Details: Pt brought to [facility] due to Pituitary tumor. -Reviewed pts PMH [...] Discussion Details: Pt brought to [facility] to discuss recent PCI to mid LAD. [...] calculated left ventricular ejection fraction of 54%. [facility]: 08/04/2020 HEMODYNAMIC FINDINGS: LVEDP 18 mmmHg [...] > Dictated by Lalit Muñoz DO (residential treatment specialist). CT a/p: 06/16/2024 Findings: Evaluation of visceral [...] 08/02/2020. 2.Peritoneal dialysis catheter in the pelvis. Ijrlf-zd-ovssizkh volume ascites throughout the abdomen and pelvis, [...] is the impression of this social services counselor that Grace Interiano has several positive factors [...] to be the back up caregiver. Plan: health care social worker to provide supportive services as needed. Patient remains a reasonable candidate for transplant from a psychosocial perspective. Psychiatric Consult Recommended: No Transplant Refrigerating Machine Operator: RAJ Portillo, DIRECTOR OF DEVELOPMENT AND MARKETING Abdominal Transplant Refrigerating Machine Operator [id number] Transplant Caregiver Confirmation Note Caregiver Confirmation Date Primary Name of Primary: Harriet Interiano Relationship: spouse - Confirmed during initial assessment 01/14/2022 - COMPUTER SYSTEMS DESIGN ANALYST form received on 01/14/2022 - Secondary Name [...] CDT - 07/21/2024 1:40 PM CDT Surgery [facility] - Cardiac Production Broacher [address] [place] [address] Vanessa Medina MD Left Heart Cath 07/21/2024 8:34 AM CDT - 07/21/2024 5:40 PM CDT Hospital Encounter [facility] RITO OP [address] [place] [phone] Vanessa Medina MD Cardiac Catheterization Discharge Disposition: Home or Self Care 07/21/2024 Orders Only [facility] - Cardiology [address] [place] [phone] Jaqueline Crews, GREEN HIDE INSPECTOR-VICE PRESIDENT FOR PHILANTHROPY Coronary artery disease involving [place] coronary artery of [place] heart, unspecified whether angina present ; Abnormal stress test; Dyspnea on exertion; Pre-kidney transplant, listed; CAD in [place] artery; Coronary artery disease with angina pectoris, unspecified vessel or lesion type, unspecified whether cow creek or transplanted heart; Abnormal findings on cardiac catheterization 07/14/2024 1:20 PM CDT Office Visit [facility] - Cardiology [address] [place] [phone] Maylin Cutler DO Chronic diastolic heart failure (HCC) (Primary Dx); Resistant hypertension; ESRD on PD; Abnormal stress test; CAD s/p PCI LAD 2020; Hypertriglyceridemia; Type 2 diabetes mellitus with other specified complication, unspecified whether fci insulin use (HCC); Coronary artery disease involving [place] coronary artery of [place] heart without angina pectoris 07/14/2024 Travel 07/05/2024 Refill [facility] - Cardiology [address] [place] [phone] Maylin Cutler DO MEDICATION REFILL 07/01/2024 Telephone [facility] TRANSPLANT [address] [place] [phone] Savanna Edwards RN Kidney Transplant Evaluation 06/25/2024 Lab Requisition [facility] MAIN LAB [address] [place] [phone] Alan Davenport MD 06/22/2024 Telephone [facility] TRANSPLANT [address] [place] [phone] Leah Josue CPC Kidney Transplant Evaluation 06/18/2024 Results Follow-Up [facility] - Cardiology [address] [place] [address] [address] [place] [address] Maylin Cutler, DO 06/17/2024 Telephone [facility] TRANSPLANT [address] [place] [phone] Leah Josue CPC Kidney Transplant Evaluation 06/17/2024 Travel 06/17/2024 Telephone [facility] TRANSPLANT [address] [place] [phone] Savanna Edwards, PORSHA Kidney Transplant Evaluation 06/17/2024 Results Follow-Up [facility] TRANSPLANT [address] [place] [phone] Savanna Edwards, PORSHA 06/16/2024 1:44 PM CDT - 06/16/2024 11:59 PM CDT Hospital Encounter [facility] LAB OP DRAW STATION [address] [place] [address] Alan Davenport MD Discharge Disposition: Home or Self Care 06/16/2024 1:33 PM CDT - 06/16/2024 1:43 PM CDT Hospital Encounter [facility] US [address] [place] [address] Alan Davenport MD Discharge Disposition: Home or Self Care 06/16/2024 12:57 PM CDT - 06/16/2024 1:32 PM CDT Hospital Encounter [facility] ECHO [address] [place] [address] Alan Davenport MD Discharge Disposition: Home or Self Care 06/16/2024 12:46 PM CDT - 06/16/2024 12:56 PM CDT Hospital Encounter [facility] DIAGNOSTIC RAD OP [address] [place] [address] Alan Davenport MD Discharge Disposition: Home or Self Care 06/16/2024 12:20 PM CDT - 06/16/2024 12:45 PM CDT Hospital Encounter [facility] CAT SCAN [address] [place] [address] Alan Davenport MD Discharge Disposition: Home or Self Care 06/16/2024 11:00 AM CDT - 06/16/2024 12:19 PM CDT Hospital Encounter [facility] NUCLEAR MEDICINE [address] [place] [address] Alan Davenport MD Discharge Disposition: Home or Self Care 06/16/2024 10:18 AM CDT - 06/16/2024 10:59 AM CDT Hospital Encounter [facility] NUCLEAR MEDICINE [facility] [place] [address] Alan Davenport MD Discharge Disposition: Home or Self Care 06/16/2024 10:00 AM CDT - 06/16/2024 10:17 AM CDT Hospital Encounter [facility] NUCLEAR MEDICINE [facility] [place] [address] Alan Davenport MD Discharge Disposition: Home or Self Care 06/16/2024 Travel 04/29/2024 Lab Requisition [facility] MAIN LAB [facility] [place] [address] Alan Davenport MD 04/23/2024 Orders Only [facility] - Cardiology [address] [facility], [facility] [address] [place] [address] Maylin Cutler, from Last 3 Months Immunizations Immunization Administration Dates Next Due [email or web address] primary monoval ent 12+ yr 0.3mL Purple [...] PM CDT Legal Sex Male 10:14 PM ROUGH CARPENTER Gender Identity Male 07/02/2021 2:37 PM CDT [...] Info) Description 08/04/2024 11:30 AM CDT Appointment [facility] MRI [address] [place] [address] Thomas Mendoza MD [address] [place] [phone] 08/04/2024 1:30 PM CDT Office Visit [facility] - Urology [address] [place] [phone] Thomas Mendoza MD [address] [facility] 2L DIV [place] [phone] 09/13/2024 10:40 AM CDT Office Visit [facility] - Endocrinology [address] [facility] [place] [phone] Niraj Turner MD [address] [facility] 2L [place] [address] 10/13/2024 1:00 PM CDT Office Visit [facility] - Cardiology [address] [facility] [place] [address] [place] [phone] Maylin Cutler DO [address] [facility] [address] [place] [address] Scheduled Procedures Name Priority Associated Diagnoses Date/Ti me CCL STAGED PERC CORONARY INTERVENTION Abnormal stress test Dyspnea on exertion Pre-kidney transplant, listed Coronary artery disease with angina pectoris, unspecified vessel or lesion type, unspecified whether [place] or transplanted heart Abnormal findings on cardiac [...] this topic Medical Devices Implanted Type Area [employer] Senior Officer Device Identifier Shelf Expiration Date Model / Serial / Lot Sys Cor Stent Xience Srr 3mm 18mm Rap Ex Implanted:Qty: 1 on 08/04/2020 by Javier Lan MD at [facility] Stent Coronary [employer] 06/19/2022 [id number] Description:STENT Sys Cor Stent Xience Srr 3mm 8mm Rap Ex Implanted:Qty: 1 on 08/04/2020 by Javier Lan MD at [facility] Stent Coronary [employer] 09/03/2021 [id number] / / [id number] Description:stent Procedures Procedure Name Priority Date/Time Associated Diagnosis Comments EKG 12-LEAD Routine 07/21/2024 10:40 AM CDT Atherosclerosis of [place] coronary artery of [place] heart without angina pectoris Abnormal stress test GLUCOSE - POINT OF CARE Routine 07/22/19 10:28 AM CDT CBC W/O DIFFERENTIAL ANDIE 07/21/2024 10:26 AM CDT Atherosclerosis of [place] coronary artery of [place] heart without angina pectoris Abnormal stress test BASIC METABOLIC PANEL (CALCIUM TOTAL) ANDIE 07/21/2024 10:26 AM CDT Atherosclerosis of [place] coronary artery of [place] heart without angina pectoris Abnormal stress test [...] SHABNAM on CPAP Coronary artery disease involving [place] coronary artery of [place] heart, unspecified whether angina present STRONGYLOIDES ANTIBODY IGG Routine 06/16/2024 4:15 PM CDT Pre-kidney transplant, listed ESRD (end stage renal disease) (HCC) 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, without long-term current use of insulin (HCC) Hypertension, unspecified type Oncocytoma Kidney stones SHABNAM on CPAP Coronary artery disease involving [place] coronary artery of [place] heart, unspecified whether angina present TOXOPLASMA GONDII ANTIBODY IGG Routine 06/16/2024 4:15 PM CDT Pre-kidney transplant, listed ESRD (end stage renal disease) ([facility]) 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) Hypertension, unspecified type Oncocytoma Kidney stones SHABNAM on CPAP Coronary artery disease involving [place] coronary artery of [place] heart, unspecified whether angina present HIV-1 HIV-2 ANTIBODY + HIV P24 AG PANEL Routine 06/16/2024 4:15 PM CDT Pre-kidney transplant, listed ESRD (end stage renal disease) ([facility]) 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) Hypertension, unspecified type Oncocytoma Kidney stones SHABNAM on CPAP Coronary artery disease involving [place] coronary artery of [place] heart, unspecified whether angina present PROSTATE SPECIFIC ANTIGEN SCREEN Routine 06/16/2024 4:15 PM CDT Pre-kidney transplant, listed ESRD (end stage renal disease) ([facility]) 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) Hypertension, unspecified type Oncocytoma Kidney stones SHABNAM on CPAP Coronary artery disease involving [place] coronary artery of [place] heart, unspecified whether angina present QUANTIFERON-TB GOLD PLUS 4-TUBE Routine 06/16/2024 4:15 PM CDT Pre-kidney transplant, listed ESRD (end stage renal disease) ([facility]) 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) Hypertension, unspecified type Oncocytoma Kidney stones SHABNAM on CPAP Coronary artery disease involving [place] coronary artery of [place] heart, unspecified whether angina present OPIATES BLOOD Routine 06/16/2024 4:15 PM CDT Pre-kidney transplant, listed ESRD (end stage renal disease) ([facility]) 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) Hypertension, unspecified type Oncocytoma Kidney stones SHABNAM on CPAP Coronary artery disease involving [place] coronary artery of [place] heart, unspecified whether angina present COCAINE METABOLITE BLOOD QUANT Routine 06/16/2024 4:15 PM CDT Pre-kidney transplant, listed ESRD (end stage renal disease) (HCC) 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) Hypertension, unspecified type Oncocytoma Kidney stones SHABNAM on CPAP Coronary artery disease involving [place] coronary artery of [place] heart, unspecified whether angina present AMPHETAMINE BLOOD CONFIRMATION Routine 06/16/2024 4:15 PM CDT Pre-kidney transplant, listed ESRD (end stage renal disease) (HCC) 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) Hypertension, unspecified type Oncocytoma Kidney stones SHABNAM on CPAP Coronary artery disease involving [place] coronary artery of [place] heart, unspecified whether angina present NICOTINE + METABOLITES BLOOD Routine 06/16/2024 4:15 PM CDT Pre-kidney transplant, listed ESRD (end stage renal disease) (HCC) 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) Hypertension, unspecified type Oncocytoma Kidney stones SHABNAM on CPAP Coronary artery disease involving [place] coronary artery of [place] heart, unspecified whether angina present SYPHILIS ANTIBODY CASCADING REFLEX Routine 06/16/2024 4:15 PM CDT Pre-kidney transplant, listed ESRD (end stage renal disease) (HCC) 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) Hypertension, unspecified type Oncocytoma Kidney stones SHABNAM on CPAP Coronary artery disease involving [place] coronary artery of [place] heart, unspecified whether angina present CYTOMEGALOVIRUS ANTIBODY IGG BLOOD Routine 06/16/2024 4:15 PM CDT Pre-kidney transplant, listed ESRD (end stage renal disease) (HCC) 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) Hypertension, unspecified type Oncocytoma Kidney stones SHABNAM on CPAP Coronary artery disease involving [place] coronary artery of [place] heart, unspecified whether angina present HEPATITIS A ANTIBODY Routine 06/16/2024 4:15 PM CDT Pre-kidney transplant, listed ESRD (end stage renal disease) (HCC) 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, without long-term current use of insulin (HCC) Hypertension, unspecified type Oncocytoma Kidney stones SHABNAM on CPAP Coronary artery disease involving [place] coronary artery of [place] heart, unspecified whether angina present HEPATITIS C ANTIBODY Routine 06/16/2024 4:15 PM CDT Pre-kidney transplant, listed ESRD (end stage renal disease) (HCC) 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, without long-term current use of insulin (HCC) Hypertension, unspecified type Oncocytoma Kidney stones SHABNAM on CPAP Coronary artery disease involving [place] coronary artery of [place] heart, unspecified whether angina present HEPATITIS B CORE ANTIBODY TOTAL Routine 06/16/2024 4:15 PM CDT Pre-kidney transplant, listed ESRD (end stage renal disease) (HCC) 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, without long-term current use of insulin (HCC) Hypertension, unspecified type Oncocytoma Kidney stones SHABNAM on CPAP Coronary artery disease involving [place] coronary artery of [place] heart, unspecified whether angina present HEPATITIS B SURFACE ANTIGEN W RFLX CONFIRMATION Routine 06/16/2024 4:15 PM CDT Pre-kidney transplant, listed ESRD (end stage renal disease) (HCC) 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, without long-term current use of insulin (HCC) Hypertension, unspecified type Oncocytoma Kidney stones SHABNAM on CPAP Coronary artery disease involving [place] coronary artery of [place] heart, unspecified whether angina present PTH INTACT W/O CALCIUM Routine 4:15 PM CDT Pre-kidney transplant, listed ESRD (end stage renal disease) (HCC) 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, without long-term current use of insulin (HCC) Hypertension, unspecified type Oncocytoma Kidney stones SHABNAM on CPAP Coronary artery disease involving [place] coronary artery of [place] heart, unspecified whether angina present PHOSPHORUS BLOOD Routine 06/16/2024 4:15 PM CDT Pre-kidney transplant, listed ESRD (end stage renal disease) (HCC) 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, without long-term current use of insulin (HCC) Hypertension, unspecified type Oncocytoma Kidney stones SHABNAM on CPAP Coronary artery disease involving [place] coronary artery of [place] heart, unspecified whether angina present IRON BLOOD Routine 06/16/2024 4:15 PM CDT Pre-kidney transplant, listed ESRD (end stage renal disease) (HCC) 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, without long-term current use of insulin (HCC) Hypertension, unspecified type Oncocytoma Kidney stones SHABNAM on CPAP Coronary artery disease involving [place] coronary artery of [place] heart, unspecified whether angina present FERRITIN Routine 06/16/2024 4:15 PM CDT Pre-kidney transplant, listed ESRD (end stage renal disease) (HCC) 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, without long-term current use of insulin (HCC) Hypertension, unspecified type Oncocytoma Kidney stones SHABNAM on CPAP Coronary artery disease involving [place] coronary artery of [place] heart, unspecified whether angina present TRANSFERRIN Routine 06/16/2024 4:15 PM CDT Pre-kidney transplant, listed ESRD (end stage renal disease) (HCC) 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, without long-term current use of insulin (HCC) Hypertension, unspecified type Oncocytoma Kidney stones SHABNAM on CPAP Coronary artery disease involving [place] coronary artery of [place] heart, unspecified whether angina present VITAMIN D 25-HYDROXY Routine 06/16/2024 4:15 PM CDT Pre-kidney transplant, listed ESRD (end stage renal disease) (HCC) 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, without long-term current use of insulin (HCC) Hypertension, unspecified type Oncocytoma Kidney stones SHABNAM on CPAP Coronary artery disease involving [place] coronary artery of [place] heart, unspecified whether angina present URIC ACID BLOOD Routine 06/16/2024 4:15 PM CDT Pre-kidney transplant, listed ESRD (end stage renal disease) (HCC) 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, without long-term current use of insulin (HCC) Hypertension, unspecified type Oncocytoma Kidney stones SHABNAM on CPAP Coronary artery disease involving [place] coronary artery of [place] heart, unspecified whether angina present CBC W AUTO DIFFERENTIAL Routine 06/17/19 4:15 PM CDT Pre-kidney transplant, listed ESRD (end stage renal disease) (HCC) 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, without long-term current use of insulin (HCC) Hypertension, unspecified type Oncocytoma Kidney stones SHABNAM on CPAP Coronary artery disease involving [place] coronary artery of [place] heart, unspecified whether angina present HEMOGLOBIN A1C Routine 06/16/2024 4:15 PM CDT Atherosclerosis of [place] coronary artery of [place] heart without angina pectoris Hypertriglyceridemi a Type 2 diabetes mellitus with other specified complication, unspecified whether superintendent [employer] insulin use (HCC) LIPID PROFILE Routine 06/16/2024 4:15 PM CDT Atherosclerosis of [place] coronary artery of [place] heart without angina pectoris Hypertriglyceridemi a Type 2 diabetes mellitus with other specified complication, unspecified whether fci insulin use (HCC) COMPREHENSIVE METABOLIC PANEL Routine 06/16/2024 4:15 PM CDT Atherosclerosis of [place] coronary artery of [place] heart without angina pectoris Hypertriglyceridemi a Type 2 diabetes mellitus with other specified complication, unspecified whether fci insulin use (HCC) US THYROID Routine 06/16/2024 2:32 PM CDT Pre-kidney transplant, listed ESRD (end stage renal disease) (HCC) 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, without long-term current use of insulin (HCC) Hypertension, unspecified type Oncocytoma Kidney stones 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) Hypertension, unspecified type Oncocytoma Kidney stones SHABNAM on CPAP Coronary artery disease involving [place] coronary artery of [place] heart, unspecified whether angina present CT ABDOMEN PELVIS WO CONTRAST Routine 06/16/2024 12:47 PM CDT Pre-kidney transplant, listed ESRD (end stage renal disease) (HCC) 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) Hypertension, unspecified type Oncocytoma Kidney stones SHABNAM on CPAP Coronary artery disease involving [place] coronary artery of [place] heart, unspecified whether angina present HOLD HLA SPECIMEN Routine 04/27/2024 1:4 8 PM CDT HEMOGLOBIN A1C 04/23/2024 12:24 PM [employer] COMPREHENSIVE METABOLIC PANEL 04/23/2024 12:24 PM [facility] LIPID PROFILE 04/23/2024 12:24 PM [facility] from Last 3 Months Results * EKG 12-LEAD (07/21/2024 10:40 AM CDT) Ventricular Rate 52 BPM [facility] MUSE Atrial Rate 52 BPM [facility] MUSE P-R Interval 172 ms [facility] MUSE QRS Duration ms 112 ms [facility] MUSE Q-T Interval ms 550 ms [facility] MUSE QTC Calculation (Bezet) 511 ms [facility] MUSE Calculated P [employer] 73 degrees SL MUSE Calculated R [employer] -55 degrees SL MUSE Calculated T [employer] -56 degrees [facility] MUSE Interpretation EKG SINUS BRADYCARDIA LEFT ANTERIOR FASCICULAR BLOCK NONSPECIFIC T WAVE ABNORMALITY PROLONGED QT ABNORMAL ECG NO PREVIOUS ECGS AVAILABLE Confirmed by МАРИНА CARRERA MD ([id number]) on 07/21/2024 3:29:58 PM [facility] MUSE 07/21/2024 10:4 0 AM CDT 07/21/2024 3:29 PM CDT Jaqueline Crews GREEN HIDE INSPECTOR-VICE PRESIDENT FOR PHILANTHROPY ECG ORDERABLES Edited R esult - Final [facility]USE * (ABNORMAL) GLUCOSE - POINT OF CARE (07/21/2024 10:28 AM CDT) Glucose WB/POC 105(H) 70 - 99 mg/dL 07/21/2024 10:29 AM CDT [facility] Specimen Type Venous 07/21/2024 10:29 AM CDT [facility] Blood BLOOD SPECIMEN / Unknown 07/21/2024 10:28 AM CDT 07/21/2024 10:29 AM CDT us Vanessa Medina MD LAB - POINT OF CARE ORDERAB LES Final Result [facility] [address] [id number], [facility] [phone] * (ABNORMAL) CBC W/O DIFFERENTIAL (07/21/2024 10:26 AM CDT) [facility] WBC 7.7 4.0 - 10.7 x10E9/L 07/21/2024 10:43 AM [facility] RBC Count 2.93(L) 4.30 - 5.80 x10E12/L 07/21/2024 10:43 AM [facility] Hemoglobin 8.8(L) 13.3 - 17.5 g/dL 07/21/2024 10:43 AM [facility] Hematocrit 27.3(L) 38.7 - 51.1 % 07/21/2024 10:43 AM [facility] MCV 93.2 80.0 - 98.0 fL 07/21/2024 10:43 AM [facility] MCH 30.0 26.7 - 33.6 pg 07/21/2024 10:43 AM [facility] MCHC 32.2 31.7 - 36.3 g/dL 07/21/2024 10:43 AM [facility] RDW-CV 16.4(H) 11.3 - 14.8 % 07/21/2024 10:43 AM [facility] Platelet Count 156 150 - 420 x10E9/L 07/21/2024 10:43 AM [facility] MPV 10.3 7.8 - 11.4 fL 07/21/2024 10:43 AM [facility] Blood BLOOD SPECIMEN / Unknown Venipuncture / Unknown 07/21/2024 10:26 AM CDT 07/21/2024 10:32 AM CDT us Jaqueline Crews GREEN HIDE INSPECTOR-VICE PRESIDENT FOR PHILANTHROPY LAB - HEMATOLOGY ORDERAB LES Final Result [facility] [address] [place] [address], [facility] [phone] * (ABNORMAL) BASIC METABOLIC PANEL (CALCIUM TOTAL) (07/21/2024 10:26 AM CDT) BUN 32(H) 7 - 26 mg/dL 07/21/2024 11:12 AM [facility] Creatinine 8.71(H) 0.71 - 1.16 mg/dL 07/21/2024 11:12 AM [facility] Sodium 140 136 - 145 mmol/L 07/21/2024 11:12 AM [facility] Potassium 3.3(L) 3.5 - 4.5 mmol/L 07/21/2024 11:12 AM [facility] Chloride 101 98 - 107 mmol/L 07/21/2024 11:12 AM [facility] CO2 27 22 - 29 mmol/L 07/21/2024 11:12 AM [facility] Glucose 93 70 - 99 mg/dL 07/21/2024 11:12 AM [facility] Calcium 8.4 8.4 - 10.2 mg/dL 07/21/2024 11:12 AM [facility] Anion Gap 12 6 - 16 07/21/2024 11:12 AM [facility] BUN/Creatinine Ratio 4(L) 7 - 23 07/21/2024 11:12 AM [facility] Osmolality Calculated 297(H) 275 - 295 mOsm/kg 07/21/2024 11:12 AM [facility] eGFR by CKD-EPI 6(L) >=90 mL/min/1.7 3 m2 07/21/2024 11:12 AM [facility] Blood BLOOD SPECIMEN / Unknown Venipuncture / Unknown 07/21/2024 10:26 AM CDT 07/21/2024 10:32 AM T us Jaqueline Crews GREEN HIDE INSPECTOR-VICE PRESIDENT FOR PHILANTHROPY LAB - CHEMISTRY ORDERABL ES Final Result [address] [phone] [phone] * CARDIAC EKG ORDER (06/22/2024 12:07 PM CDT) Narrative 06/22/2024 12:07 PM CDT Ordered by an unspecified provider. Scanned Document CARDIAC SERVICES ORDERABLES Fin al Result * HOLD HLA SPECIMEN (06/22/2024 11:05 AM CDT) Only the most recent of2 resultswithin the time period is included. Hold HLA Specimen 06/25/2024 12:32 PM CDT [facility] ([facility]) Comment:The Hold HLA specime n has been received into the lab and will be held for 5 years at 4 degrees. Blood BLOOD SPECIMEN / Unknown 06/22/2024 11:05 AM CDT 06/25/2024 11:05 AM CDT Alan Davenport MD LAB - BLOOD BANK ORDERABLES F inal Result [facility] ([facility] [address] [place] [address] * HEPATITIS B SURFACE ANTIBODY QUANT (06/16/2024 4:17 PM CDT) [facility] Hepatitis B Virus Surface Antibody Non-react sylvie Non-react sylvie 06/16/2024 6:02 PM CDT [facility] Comment: < 8 mIU/mL Hepatitis B surface Antibody (HBsAb). Nonreactive for HBsAb - individual is considered not immune to Hepatitis B Virus infection. Hepatitis B Surface Antibody Quantitative <3.0 <8.0 mIU/mL 06/16/2024 6:02 PM CDT [facility] Comment: Hepatitis B Surface Antibody Numeric Result Interpretation: Nonreactive: <8.0 mIU/mL Indeterminate: 8.0 - 12.0 mIU/mL Reactive: >12.0 mIU/mL Blood BLOOD SPECIMEN / Unknown Lab Venipuncture / Unknown 06/16/2024 4:17 PM CDT 06/16/2024 5:14 PM CDT Narrative [facility] - 06/16/2024 6:02 PM CDT This assay should not be used for blood, plasma, or tissue donor screening. This assay is not recommended for neonates born to HBV-infected or suspected HBV-infected mothers. Alan Davenport MD LAB - SEROLOGY ORDERABLES Fin al Result Performing Organization Address [facility] Co de Phone Number [facility] [address] [place] [address], [facility] [phone] * COCAINE METABOLITE QUANT (06/16/2024 4:15 PM CDT) Pathologist [facility] Cocaine and Metabolite Blood <20 ng/mL 06/21/2024 9:00 AM CDT [facility] ([facility]) Comment: INTERPRETIVE INFORMATION: Cocaine Metabolite, Serum or Plasma, Quantitative Methodology: Quantitative Liquid Chromatography-Tandem Mass Spectrometry Positive cutoff: 20 ng/mL For medical purposes only; not valid for forensic use. The concentration value must be greater than or equal to the cutoff to be reported as positive. Interpretive questions should be directed to the laboratory. This test was developed and its performance characteristics determined by [facility]. It has not been cleared or approved by the US Food and Drug Administration. This test was performed in a CLIA certified laboratory and is intended for clinical purposes. Performed By: [facility] [address] [place] [address] [employer] Operator: Mk Egan MD, PhD CLIA Number: [id number] Blood BLOOD SPECIMEN / Unknown Lab Venipuncture / Unknown 06/16/2024 4:15 PM CDT 06/16/2024 5:17 PM CDT Alan Davenport MD LAB - CHEMISTRY ORDERABLES Fi nal Result Performing Organization Address [facility] Co de Phone Number [facility]) [address] [place] [address] * SYPHILIS ANTIBODY CASCADING REFLEX (06/16/2024 4:15 PM CDT) Treponema pallidum Antibody Non-react sylvie Non-react sylvie 06/16/2024 5:49 PM CDT [facility] Comment: No Laboratory evidence of syphilis infection. Note: Circulating antibodies may be low or undetectable in early infection. If recent exposure is suspected, re-draw sample in 2-4 weeks and repeat testing. Blood BLOOD SPECIMEN / Unknown Lab Venipuncture / Unknown 06/16/2024 4:15 PM CDT 06/16/2024 5:15 PM CDT us Alan Davenport MD LAB - SEROLOGY ORDERABLES Fin al Result [facility] [address] [place] [address], [facility] [phone] * AMPHETAMINE BLOOD CONFIRMATION (06/16/2024 4:15 PM CDT) Pathologist [facility] Amphetamines Confirmation <20 ng/mL 06/23/2024 4:46 PM CDT [facility] ([facility]) Comment: INTERPRETIVE INFORMATION: Amphetamines, Serum or Plasma, [...] developed and its performance characteristics determined by [facility]. It has not been cleared or approved by the US Food and Drug Administration. This test was performed in a CLIA certified laboratory and is intended for clinical purposes. Methamphetamine Confirmation <20 ng/mL 06/23/2024 4:46 PM CDT [facility] ([facility]) MDA Confirmation <20 ng/mL 06/24/19 25 4:46 PM CDT [facility] ([facility]) MDMA Confirm <20 ng/mL 06/23/2024 4:46 PM CDT [facility] ([facility]) MDEA Confirmation <20 ng/mL 025 4:46 PM CDT [facility]) Comment: Performed By: [facility] [address] [place] [id number] [employer] Operator: Mk Egan MD, PhD CLIA Number: [id number] Blood BLOOD SPECIMEN / Unknown Lab Venipuncture / Unknown 06/16/2024 4:15 PM CDT 06/16/2024 5:16 PM CDT Alan Davenport MD LAB - CHEMISTRY ORDERABLES Fi nal Result [facility]) [address] [place] [address], [facility] * QUANTIFERON-TB GOLD PLUS 4-TUBE (06/16/2024 4:15 PM CDT) [facility] QuantiFERON Mitogen Minus NIL 9.96 IU/mL 06/18/2024 10:28 PM CDT [facility]) QuantiFERON Nil Value 0.04 IU/mL 06/18/2024 10:28 PM CDT [facility]) QuantiFERON Plus TB1 Minus NIL 0.00 <=0.34 IU/mL 06/18/2024 10:28 PM CDT [facility] ([facility]) QuantiFERON Plus TB2 Minus NIL 0.10 <=0.34 IU/mL 06/18/2024 10:28 PM CDT [facility] ([facility]) QuantiFERON-TB Gold Plus Negative Negative 06/18/2024 10:28 PM CDT [facility] ([facility]) Comment: INTERPRETIVE INFORMATION:Quantiferon TB Gold Plus Interferon [...] Mycobacterium tuberculosis Infection -- [place], 2010 (http://www.cdc.gov/mmwr/preview/mmwrhtml/cr5183l3.htm), for more information concerning test performance in low-prevalence populations and use in occupational screening. Performed By: [address] [address] [employer] Operator: Mk Egan MD, PhD CLIA Number: [id number] Blood BLOOD SPECIMEN / Unknown Lab Venipuncture / Unknown 06/16/2024 4:15 PM CDT 06/16/2024 4:49 PM CDT us Alan Davenport MD LAB - CHEMISTRY ORDERABLES Fi nal Result Performing Organization Address [facility]/ZIP Co de Phone Number [facility]) [address] [place] [id number] * (ABNORMAL) PTH INTACT W/O CALCIUM (06/16/2024 4:15 PM CDT) PTH Intact 396.2(H) 8.0 - 77.0 pg/mL 06/16/2024 5:32 PM CDT [facility] Blood BLOOD SPECIMEN / Unknown Lab Venipuncture / Unknown 06/16/2024 4:15 PM CDT 06/16/2024 5:02 PM CDT us Alan Davenport MD LAB - CHEMISTRY ORDERABLES Fi nal Result Performing Organization Address City/[facility]/ZIP Co de Phone Number [address] [address], [facility] [phone] * (ABNORMAL) OXALATE BLOOD (06/16/2024 4:15 PM CDT) Oxalate 2.1(H) <=2.0 umol/L 06/21/2024 6:22 PM CDT [facility] ([facility]) Comment: INTERPRETIVE INFORMATION: Oxalate, Plasma This test was developed and its performance characteristics determined by [facility]. It has not been cleared or approved by the US Food and Drug Administration. This test was performed in a CLIA certified laboratory and is intended for clinical purposes. Performed By: [facility] [address] [place] [address] [employer] Operator: Mk Egan MD, PhD CLIA Number: [id number] Blood BLOOD SPECIMEN / Unknown Lab Venipuncture / Unknown 06/16/2024 4:15 PM CDT 06/16/2024 5:02 PM CDT Alan Davenport MD LAB - CHEMISTRY ORDERABLES Fi nal Result Performing Organization Address [facility] Co de Phone Number [facility] ([facility]) [address] [place], [place] [address] * HIV-1 HIV-2 ANTIBODY + HIV P24 AG PANEL (06/16/2024 4:15 PM CDT) [facility] HIV Antigen/Antibod y 1 & 2 Non-reacti ve Non-react sylvie 06/16/2024 5:50 PM CDT [facility] Comment:No Laboratory eviden ce of HIV infection. Blood BLOOD SPECIMEN / Unknown Lab Venipuncture / Unknown 06/16/2024 4:15 PM CDT 06/16/2024 5:15 PM CDT Alan Davenport MD LAB - CHEMISTRY ORDERABLES Fi nal Result Performing Organization Address [facility] Co de Phone Number [address] [address], [facility] [phone] * OPIATES BLOOD (06/16/2024 4:15 PM CDT) [facility] Opiates Screen Negative 06/24/2024 3:10 PM CDT [facility] ([facility]) Comment:REFERENCE RANGE: thr shold: 10 ng/mL Oxycodone Screen Negative 06/25/19 3:10 PM CDT [facility] ([facility]) Comment:REFERENCE RANGE: thr shold: 10 ng/mL Specimen Type Comment 06/24/2024 3:10 PM CDT [facility] ([facility]) Comment: WHOLE BLOOD This specimen was screened [...] CDT 06/16/2024 4:49 PM CDT Narrative [facility] ([facility]) - 06/24/2024 3:10 PM CDT Performed at: - [facility] [address] [place] [phone] Securities Settlement Processor: Ev Camarena [facility], Phone: [phone] us Alan Davenport MD LAB - CHEMISTRY ORDERABLES Fi nal Result Performing Organization Address [facility]/ZIP Co de Phone Number [facility]) [address] [place] [address] * URIC ACID BLOOD (06/16/2024 4:15 PM CDT) Uric Acid 5.7 3.5 - 7.2 mg/dL 06/16/2024 5:31 PM CDT [facility] Blood BLOOD SPECIMEN / Unknown Lab Venipuncture / Unknown 06/16/2024 4:15 PM CDT 06/16/2024 5:02 PM CDT us Alan Davenport MD LAB - CHEMISTRY ORDERABLES Fi nal Result Performing Organization Address City/[facility]/ZIP Co de Phone Number [address] [address], [facility] [phone] * STRONGYLOIDES ANTIBODY IGG (06/16/2024 4:15 PM CDT) Strongyloides Antibody IgG 0.1 <=0.9 IV 06/20/2024 11:18 PM CDT [facility] ([facility]) Comment: INTERPRETIVE INFORMATION: Strongyloides Ab, IgG by [...] also result in false-positive results. Performed By: [facility] [employer] [address] [place] [address] [employer] L[employer] Operator: Mk Egan MD, PhD CLIA Number: [id number] Blood BLOOD SPECIMEN / Unknown Lab Venipuncture / Unknown 06/16/2024 4:15 PM CDT 06/16/2024 5:17 PM CDT Alan Davenport MD LAB - SEROLOGY ORDERABLES Fin al Result [facility]) [address] [place] [address] * CYTOMEGALOVIRUS ANTIBODY IGG BLOOD (06/16/2024 4:15 PM CDT) [facility] Cytomegalovirus Antibody IgG <0.20 <=0.70 U/mL 06/19/2024 6:14 AM CDT [facility] ([facility]) Comment: INTERPRETIVE INFORMATION: Cytomegalovirus Antibody, IgG 0.59 [...] laboratory at the same time. Performed By: [facility] [employer] [address] [place] [address] [employer] Operator: Mk Egan MD, PhD CLIA Number: [id number] Blood BLOOD SPECIMEN / Unknown Lab Venipuncture / Unknown 06/16/2024 4:15 PM CDT 06/16/2024 5:17 PM CDT us Alan Davenport MD LAB - CHEMISTRY ORDERABLES Fi nal Result Performing Organization Address [facility]/ZIP Co de Phone Number [facility]) [address] [place] [address] * TRANSFERRIN (06/16/2024 4:15 PM CDT) [facility] Transferrin 210 174 - 382 mg/dL 06/16/2024 5:30 PM CDT [facility] Blood BLOOD SPECIMEN / Unknown Lab Venipuncture / Unknown 06/16/2024 4:15 PM CDT 06/16/2024 5:15 PM CDT Alan Davenport MD LAB - CHEMISTRY ORDERABLES nal Result Performing Organization Address [facility] de Phone Number [address] [address], [facility] [phone] * TOXOPLASMA GONDII ANTIBODY IGG (06/16/2024 4:15 PM CDT) [facility] Toxoplasma Antibody IgG <3.0 <=8.8 IU/mL 06/18/2024 1:52 AM CDT [facility]) Comment: INTERPRETIVE INFORMATION: Toxoplasma Ab, IgG [...] the amount of antibody present. Performed By: [facility] [address] [place] [address] [employer] L[employer] Operator: Mk Egan MD, PhD CLIA Number: [id number] Blood BLOOD SPECIMEN / Unknown Lab Venipuncture / Unknown 06/16/2024 4:15 PM CDT 06/16/2024 5:16 PM CDT Alan Davenport MD LAB - CHEMISTRY ORDERABLES Fi nal Result [facility] ([facility]) [address] [place] [address], [facility] * (ABNORMAL) HEMOGLOBIN A1C (06/16/2024 4:15 PM CDT) Only the most recent of2 resultswithin the time period is included. Hemoglobin A1c 6.2(H) <=5.6 % 06/17/2024 8:05 AM [facility] Estimated Average Glucose 131 mg/dL 06/17/2024 8:05 AM [facility] Comment: HbA1c Interpretation: Normal : < [...] ORDERABLES Fin al Result Performing Organization Address City/[facility]/ZIP Co de Phone Number [facility] [address] [place] [address], [place] [phone] * VITAMIN D 25-HYDROXY (06/16/2024 4:15 PM CDT) Vitamin D, 25 Hydroxy 45.1 30.0 - 80.0 ng/mL 06/16/2024 5:50 PM CDT [facility] Comment: The recommendations for 25-Hydroxy Vitamin [...] ORDERABLES Fi nal Result Performing Organization Address [facility]/ZIP Co de Phone Number [facility] [address] [place] [address], [place] [phone] * NICOTINE + METABOLITES BLOOD (06/16/2024 4:15 PM CDT) Nicotine <5 ng/mL 06/19/2024 11:[address] [employer] [employer] [address] ([facility]) Comment: INTERPRETIVE INFORMATION: Nicotine and Metabolites, Serum [...] developed and its performance characteristics determined by [facility] [employer]. It has not been cleared or approved by the US Food and Drug Administration. This test was performed in a CLIA certified laboratory and is intended for clinical purposes. Performed By: [place] [address] [employer] Operator: Mk Egan MD, PhD CLIA Number: [id number] Cotinine <5 ng/mL 06/19/2024 11:28 PM CDT [facility]) Blood BLOOD SPECIMEN / Unknown Lab Venipuncture / Unknown 06/16/2024 4:15 PM CDT 06/16/2024 5:15 PM CDT Alan Davenport MD LAB - CHEMISTRY ORDERABLES nal Result [facility]) [address] [place] [address] * (ABNORMAL) CBC W AUTO DIFFERENTIAL (06/16/2024 4:15 PM CDT) WBC 10.8(H) 4.0 - 10.7 x10E9/L 06/16/2024 5:09 PM [facility] RBC Count 3.08(L) 4.30 - 5.80 x10E12/L 06/16/2024 5:09 PM [facility] Hemoglobin 9.5(L) 13.3 - 17.5 g/dL 06/16/2024 5:09 PM [facility] Hematocrit 28.6(L) 38.7 - 51.1 % 06/16/2024 5:09 PM [facility] MCV 92.9 80.0 - 98.0 fL 06/16/2024 5:09 PM [facility] MCH 30.8 26.7 - 33.6 pg 06/16/2024 5:09 PM T [facility] MCHC 33.2 31.7 - 36.3 g/dL 06/16/2024 5:09 PM [facility] RDW-CV 14.8 11.3 - 14.8 % 06/16/2024 5:09 PM [facility] Platelet Count 154 150 - 420 x10E9/L 06/16/2024 5:09 PM [facility] MPV 11.3 7.8 - 11.4 fL 06/16/2024 5:09 PM [facility] Neutrophil % 77.5(H) 41.0 - 74.0 % 06/16/2024 5:09 PM [facility] Lymphocyte % 10.0(L) 17.0 - 47.0 % 06/16/2024 5:09 PM [facility] Monocyte % 9.5 3.0 - 11.0 % 06/16/2024 5:09 PM [facility] Eosinophil % 0.9 0.0 - 7.0 % 06/16/2024 5:09 PM [facility] Basophil % 0.2 0.0 - 1.6 % 06/16/2024 5:09 PM [facility] Immature Granulocytes % 1.9(H) 0.0 - 1.0 % 06/16/2024 5:09 PM [facility] Neutrophil Absolute 8.33(H) 1.60 - 7.50 x10E9/L 06/16/2024 5:09 PM [facility] Lymphocyte Absolute 1.08 1.00 - 4.40 x10E9/L 06/16/2024 5:09 PM [facility] Monocyte Absolute 1.02(H) 0.15 - 1.00 x10E9/L 06/16/2024 5:09 PM [facility] Eosinophil Absolute 0.10 0.00 - 0.60 x10E9/L 06/16/2024 5:09 PM [facility] Basophil Absolute 0.02 0.00 - 0.13 x10E9/L 06/16/2024 5:09 PM [facility] Blood BLOOD SPECIMEN / Unknown Lab Venipuncture / Unknown 06/16/2024 4:15 PM CDT 06/16/2024 5:02 PM CDT us Alan Davenport MD LAB - HEMATOLOGY ORDERABLES F inal Result [facility] [address] [place] [address], [place] [phone] * (ABNORMAL) COMPREHENSIVE METABOLIC PANEL (06/16/2024 4:15 PM CDT) Only the most recent of2 resultswithin the time period is included. BUN 34(H) 7 - 26 mg/dL 06/16/2024 5:31 PM [facility] Creatinine 8.52(H) 0.71 - 1.16 mg/dL 06/16/2024 5:31 PM [facility] Sodium 141 136 - 145 mmol/L 06/16/2024 5:31 PM [facility] Potassium 3.8 3.5 - 4.5 mmol/L 06/16/2024 5:31 PM [facility] Chloride 100 98 - 107 mmol/L 06/16/2024 5:31 PM [facility] CO2 24 22 - 29 mmol/L 06/16/2024 5:31 PM [facility] Glucose 62(L) 70 - 99 mg/dL 06/16/2024 5:31 PM [facility] Calcium 8.0(L) 8.4 - 10.2 mg/dL 06/16/2024 5:31 PM [facility] Protein Total 5.9(L) 6.0 - 8.3 g/dL 06/16/2024 5:31 PM [facility] Albumin 2.7(L) 3.4 - 5.0 g/dL 06/16/2024 5:31 PM [facility] Bilirubin Total 0.3 0.2 - 1.2 mg/dL 06/16/2024 5:31 PM [facility] Alkaline Phosphatase 40 40 - 150 U/L 06/16/2024 5:31 PM [facility] ALT 19 5 - 55 U/L 06/16/2024 5:31 PM [facility] AST 26 5 - 34 U/L 06/16/2024 5:31 PM T [facility] Anion Gap 17(H) 6 - 16 06/16/2024 5:31 PM [facility] BUN/Creatinine Ratio 4(L) 7 - 23 06/16/2024 5:31 PM T [facility] Osmolality Calculated 298(H) 275 - 295 mOsm/kg 06/16/2024 5:31 PM [facility] Albumin/Globulin Ratio 0.8(L) 1.1 - 2.3 06/16/2024 5:31 PM [facility] eGFR by CKD-EPI 6(L) >=90 mL/min/1.7 3 m2 06/16/2024 5:31 PM [facility] Blood BLOOD SPECIMEN / Unknown Lab Venipuncture / Unknown 06/16/2024 4:15 PM CDT 06/16/2024 5:02 PM CDT us Maylin Cutler DO LAB - CHEMISTRY ORDERABLES Fin al Result [address] [address], [place] [phone] * PROSTATE SPECIFIC ANTIGEN SCREEN (06/16/2024 4:15 PM CDT) PSA Total 2.8 <4.0 ng/mL 06/16/2024 5:47 PM CDT [facility] Blood BLOOD SPECIMEN / Unknown Lab Venipuncture / Unknown 06/16/2024 4:15 PM CDT 06/16/2024 5:14 PM CDT Narrative [facility] - 06/16/2024 5:47 PM CDT PSA values will vary depending on the testing procedure used. Results are not comparable across different test methods. [facility] uses the [employer] Alinity immunoassay test method. us Alan Davenport MD LAB - CHEMISTRY ORDERABLES Fi nal Result [address] [address], [place] [phone] * (ABNORMAL) PHOSPHORUS BLOOD (06/16/2024 4:15 PM CDT) Phosphorus 7.6(H) 2.8 - 5.1 mg/dL 06/16/2024 5:31 PM CDT [facility] Blood BLOOD SPECIMEN / Unknown Lab Venipuncture / Unknown 06/16/2024 4:15 PM CDT 06/16/2024 5:02 PM CDT us Alan Davenport MD LAB - CHEMISTRY ORDERABLES Fi nal Result [address] [address], [place] [phone] * IRON BLOOD (06/16/2024 4:15 PM CDT) Pathologist [facility] Iron 73 50 - 175 ug/dL 06/16/2024 5:30 PM CDT [facility] Blood BLOOD SPECIMEN / Unknown Lab Venipuncture / Unknown 06/16/2024 4:15 PM CDT 06/16/2024 5:15 PM CDT us Alan Davenport MD LAB - CHEMISTRY ORDERABLES Fi nal Result Performing Organization Address City/[facility]/ZIP Co de Phone Number [address] [address], [place] [phone] * HEPATITIS B CORE ANTIBODY (06/16/2024 4:15 PM CDT) Pathologist [facility] HBc Antibody Total Non-reacti ve Non-reacti ve 06/16/2024 5:50 PM CDT [facility] Blood BLOOD SPECIMEN / Unknown Lab Venipuncture / Unknown 06/16/2024 4:15 PM CDT 06/16/2024 5:15 PM CDT us Alan Davenport MD LAB - CHEMISTRY ORDERABLES Fi nal Result [address] [place] [address], [facility] [phone] * HEPATITIS B SURFACE ANTIGEN W RFLX CONFIRMATION (06/16/2024 4:15 PM CDT) [facility] Hepatitis B Virus Surface Antigen Non-reacti ve Non-reacti ve 06/16/2024 5:50 PM CDT [facility] Blood BLOOD SPECIMEN / Unknown Lab Venipuncture / Unknown 06/16/2024 4:15 PM CDT 06/16/2024 5:15 PM CDT Alan Davenport MD LAB - CHEMISTRY ORDERABLES Fi nal Result Performing Organization Address [facility] Co de Phone Number [address] [address], [facility] [phone] * HEPATITIS C ANTIBODY (06/16/2024 4:15 PM CDT) [facility] Hepatitis C Antibody Non-react sylvie Non-reac tive 06/16/2024 5:50 PM CDT [facility] Comment:Hepatitis C Antibody screen indicates no [...] ORDERABLES Fi nal Result Performing Organization Address City/[facility]/ZIP Co de Phone Number [address] [address], [facility] [phone] * (ABNORMAL) HEPATITIS A ANTIBODY (06/16/2024 4:15 PM CDT) [facility] Hepatitis A Virus Antibody Total Positive( A) Negative 06/17/2024 7:14 PM CDT [facility] ([facility]) Comment: The positive anti-HAV is consistent with recent or remote Hepatitis A infection or antibody response to HAV vaccination. False positive anti-HAV can occur. Performed By: [facility] [address] [place] [address] Tier Lift Truck Operator: Mk Egan MD, PhD CLIA Number: [id number] Blood BLOOD SPECIMEN / Unknown Lab Venipuncture / Unknown 06/16/2024 4:15 PM CDT 06/16/2024 5:12 PM CDT Alan Davenport MD LAB - CHEMISTRY ORDERABLES Fi nal Result Performing Organization Address City/[facility]/ZIP Co de Phone Number [facility] ([facility]) [address] [place] [address], [facility] * (ABNORMAL) FERRITIN (06/16/2024 4:15 PM CDT) [facility] Ferritin 623(H) 22 - 275 ng/mL 06/16/2024 5:50 PM CDT [facility] Blood BLOOD SPECIMEN / Unknown Lab Venipuncture / Unknown 06/16/2024 4:15 PM CDT 06/16/2024 5:15 PM CDT us Alan Davenport MD LAB - CHEMISTRY ORDERABLES nal Result Performing Organization Address City/[facility]/ZIP Co de Phone Number [facility] [address] [place] [address], [facility] [phone] * (ABNORMAL) LIPID PROFILE (06/16/2024 4:15 PM CDT) Only the most recent of2 resultswithin the time period is included. Pathologist [facility] Cholesterol Total 112 <200 mg/dL 06/16/2024 5:31 PM CDT [facility] HDL 32(L) >40 mg/dL 06/16/2024 5:31 PM CDT [facility] Comment: ATP III Classification of HDL Cholesterol: <40 mg/dL: Considered a major risk factor. >60 mg/dL: Considered a negative risk factor. LDL Calculated 53 <100 mg/dL 06/16/2024 5:31 PM CDT [facility] Comment: ATP III Classification of LDL Cholesterol: <100 mg/dL: Optimal 100 - 129 mg/dL: Near Optimal/Above Optimal 130 - 159 mg/dL: Borderline High 160 - 189 mg/dL: High >190 mg/dL: Very High Triglycerides 134 <150 mg/dL 06/16/2024 5:31 PM CDT [facility] Comment: ATP III Classification of Triglycerides: <150 mg/dL: Normal 150 - 199 mg/dL: Borderline High 200 - 400 mg/dL: High >500 mg/dL: Very High Blood BLOOD SPECIMEN / Unknown Lab Venipuncture / Unknown 06/16/2024 4:15 PM CDT 06/16/2024 5:02 PM CDT us Maylin Cutler DO LAB - CHEMISTRY ORDERABLES Fin al Result [facility] [address] [place] [address], [facility] [phone] * US Thyroid (06/16/2024 2:32 PM CDT) [...] stability. Report dictated by Otis Bocanegra MD, (residential treatment specialist). I, Raymundo Hanson MD have personally reviewed and interpreted this examination/study. > Interpreting Provider: Raymundo Hanson MD on 06/16/2024 2:38 PM Narrative 06/16/2024 2:38 PM CDT PROCEDURE: US THYROID, DATE/TIME OF EXAM: 06/16/2024 2:32 PM, LOCATION [facility] INDICATION: Z76.82: Pre-kidney transplant, listed N18.6: ESRD [...] THYROID, DATE/TIME OF EXAM: 06/16/2024 2:32 PM, [facility] INDICATION: Z76.82: Pre-kidney transplant, listed N18.6: [...] stability. Report dictated by Otis Bocanegra MD, (residential treatment specialist). I, Raymundo Hanson MD have personally reviewed [...] CV FUJ I PACS MV A pk dontrell 101.425 cm/s [facility] CV F UJI PACS [...] 1:12 PM Patient Status: O/P Study Site: [facility] Primary Location: [facility] EStudy Info Technical Quality: Technically Difficult Exam [...] Provider: Alan Davenport Attending Physician: Alan Davenport Tank Stave Assembler: Diane Merlos Left Ventricle Left ventricular systolic [...] 1:12 PM Patient Status: O/P Study Site: [facility] Primary Location: [facility] EStudy Info Technical Quality: Technically Difficult Exam [...] Provider: Alan Davenport Attending Physician: Alan Davenport Tank Stave Assembler: Diane Merlos Left Ventricle Left ventricular systolic [...] dialysis, without long-term current use of insulin (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) Z99.2: Type 2 diabet Additional History: COMPARISON: [...] 08/02/2020. 2.Peritoneal dialysis catheter in the pelvis. Ihssk-kn-vybniual volume ascites throughout the abdomen and pelvis, likely related to dialysis. 3.Moderate to severe atherosclerotic calcification of bilateral common iliac arteries as well as bilateral external iliac arteries 4.Prostatomegaly. 5.Bilateral subcentimeter lung nodules, unchanged since 03/04/2022. > Dictated by Ilene Borja MD (residential treatment specialist). I, Junior Hurley MD have personally reviewed and interpreted this examination/study. > Interpreting Provider: Junior Hurley MD on 06/16/2024 2:17 PM Narrative 06/16/2024 2:17 PM CDT PROCEDURE: CT ABDOMEN PELVIS WO CONTRAST, DATE/TIME OF EXAM: 06/16/2024 12:47 PM, LOCATION [facility] INDICATION: Z76.82: Pre-kidney transplant, listed N18.6: ESRD [...] DATE/TIME OF EXAM: 06/16/2024 12:47 PM, LOCATION [facility] INDICATION: Z76.82: Pre-kidney transplant, listed N18.6: ESRD [...] on08/02/2020. 2.Peritoneal dialysis catheter in the pelvis. Uuoin-ym-xyeblxvp volume ascites throughout the abdomen and pelvis, likely related to dialysis. 3.Moderate to severe atherosclerotic calcification of bilateral common iliac arteries as well as bilateral external iliac arteries 4.Prostatomegaly. 5.Bilateral subcentimeter lung nodules, unchanged since 03/04/2022. > Dictated by Ilene Borja MD (residential treatment specialist). IJunior MD have personally reviewed and interpreted [...] 54%. > Dictated by Neeraj Johnson MD (Linen Attendant) 06/16/2024 10:25 AM IAriel MD have personally [...] dialysis, without long-term current use of insulin ([facility]) Z99.2: Type 2 diabet Rest and Pharmacologic [...] listed N18.6: ESRD (end stage renal disease) (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) Z99.2: Type 2 diabet Rest and Pharmacologic [...] 54%. > Dictated by Neeraj Johnson MD (Linen Attendant) 06/16/2024 10:25AM I, Ariel Araya MD have personally reviewed and interpreted this examination/study. > Interpreting Provider: Ariel Araya MD on 06/17/2024 8:36 AM Alan Davenport MD [place] ORDERABLES Final Result * STRESS TEST Pharm-Lexiscan [...] Name:LAISHADELL WHITAKERGRACE Subscriber ID:Not on file Address: [address] [place] [address] Payer ID:Not on file Group ID:Not on file Type:Self Pay Address: [place], [place] * Guarantor: GRACE INTERIANO Account Type Relation to Patient Date of Phone Billing Address Personal/Family [address] [place] [address] * Guarantor: GRACE INTERIANO Account Type Relation to Patient Date of Phone Billing Address Personal/Family [address] [place] [address] Advance Directives * Full Code (Latest Code Status on File) Date Activated Date Inactivated Comments 07/21/2024 4:56 PM 07/21/2024 7:23 PM * Full Code Date Activated Date Inactivated Comments 07/21/2024 4:56 PM 07/21/2024 4:56 PM * Full Code Date Activated Date Inactivated Comments 08/04/2020 11:48 AM 08/08/2020 9:40 AM Care Teams Paid Search Manager Relationship Specialty Start Date End Date Jeff Strickland MD [address] [place] [address] PCP - General 03/05/18 [place] [address] [address] Orthopedic Surgery 03/28/17
--- OUTSIDE RECORDS SUMMARY | 2024-07-24 21:34 | XMS_ITS | Encounter Summary ---
Author Organization [facility] Address [address] [place] [address] Care Team Providers Care Acid Supervisor Name Role Phone Deandre Bojorquez MD Unavailable [phone] Jeff Strickland MD Primary Care Provider [phone] Encounter Details Date Type Department Care Team (Late st Contact Info) Description 06/17/2024 Results Follow-Up [facility] [address] [place] [id number] Savanna Edwards RN Social History Tobacco Use Types Packs/Day Years Used Date Smoking Tobacco: Never Smokeless Tobacco: Never Alcohol Use Standard Drinks/Week Comments Not Currently 0 (1 standard drink = 0.6 oz pur e alcohol) socially in past Sex and Gender Information Value Date Recorded Sex Assigned at Male 07/02/2021 2:37 PM CDT 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 Gender Identity Male 07/02/2021 2:37 PM [...] 08/04/2024 11:30 AM CDT Appointment [facility] [address] [place] [address] Thomas Mendoza MD [address] [place] [address] [address] DIV [place]IC [place] [address] 08/04/2024 1:30 PM CDT Office Visit [facility] - Urology [address] [place] [address] Thomas Mendoza MD [address] [facility] 2[address] DIV [place]IC [place] [address] 09/13/2024 10:40 AM CDT Office Visit [facility] - Endocrinology [address] [facility], [place] [address] Niraj Turner MD [address] [place] 2L [place] [address] 10/13/2024 1:00 PM CDT Office Visit [facility] - Cardiology [address] [facility] [address] [place] [address] Maylin Cutler R, DO [address] [facility] [address] [place] [address] Scheduled Procedures Name Priority Associated Diagnoses Date/Ti me CCL STAGED PERC CORONARY INTERVENTION Abnormal stress test Dyspnea on exertion Pre-kidney transplant, listed Coronary artery disease with angina pectoris, unspecified vessel or lesion type, unspecified whether nikolski or transplanted heart Abnormal findings on cardiac catheterization documented as of this encounter Visit Diagnoses Not on filedocumented in this encounter Care Teams Acid Supervisor Relationship Specialty Start Date End Date Jeff Strickland MD [address] [place] [address] PCP - General 03/05/18 [place] [address] [facility] [address] [place] [address] Orthopedic Surgery 03/28/17 documented as of this encounter
--- OUTSIDE RECORDS SUMMARY | 2024-07-24 21:34 | XMS_ITS | Encounter Summary ---
Author Organization [facility] Address [facility] [place] [address] Care Team Providers Care Qa Analyst Name Role Phone Deandre Bojorquez MD Unavailable [phone] Jeff Strickland MD Primary Care Provider [phone] Encounter Details Date Type Department Care Team (Late st Contact Info) Description 03/30/2024 Lab Requisition [facility] [address] [place] [id number] Alan Dvaenport MD [facility] [place] [address] Social History Tobacco Use Types Packs/Day Years Used Date Smoking Tobacco: Never Smokeless Tobacco: Never Alcohol Use Standard Drinks/Week Comments Not Currently 0 (1 standard drink = 0.6 oz pur e alcohol) socially in past Sex and Gender Information Value Date Recorded Sex Assigned at Male 07/02/2021 2:37 PM CDT Legal Sex Male 10:14 PM PROGRAM/MUSIC DIRECTOR Gender Identity Male 07/02/2021 2:37 PM CDT [...] Info) Description 08/04/2024 11:30 AM CDT Appointment [facility] MRI [address] [place] [address] Thomas Mendoza MD [address] [place] [address] [address] [place] [address] 08/04/2024 1:30 PM CDT Office Visit [facility] - Urology [address] [place] [phone] Thomas Mendoza MD [address] [place] [address] 2[address] [place] [address] 09/13/2024 10:40 AM CDT Office Visit [facility] - Endocrinology [address] [place] [address], [place] [address] Niraj Turner MD [address] [place] [address] 2L Div [place] [address] 10/13/2024 1:00 PM CDT Office Visit [facility] - Cardiology [address] [facility] [address] [place] [address] Maylin Cutler DO [address] [facility] [address] [place] [address] Scheduled Procedures Name Priority Associated Diagnoses Date/Ti me CCL STAGED PERC CORONARY INTERVENTION Abnormal stress test Dyspnea on exertion Pre-kidney transplant, listed Coronary artery disease with angina pectoris, unspecified vessel or lesion type, unspecified whether [place] or transplanted heart Abnormal findings on cardiac catheterization documented as of this encounter Procedures Procedure Name Priority Date/Time Associated Diagnosis Comments HOLD HLA SPECIMEN Routine 03/25/2024 2:5 1 PM PROGRAM/MUSIC DIRECTOR documented in this encounter Results * HOLD HLA SPECIMEN (03/25/2024 2:51 PM PROGRAM/MUSIC DIRECTOR) Hold HLA Specimen 03/30/2024 4:01 PM PROGRAM/MUSIC DIRECTOR [facility] Comment:The Hold HLA specime n has been received into the lab and will be held for 5 years at 4 degrees. Blood BLOOD SPECIMEN / Unknown 03/25/2024 2:51 PM PROGRAM/MUSIC DIRECTOR 03/30/2024 2:51 PM PROGRAM/MUSIC DIRECTOR Alan Davenport MD LAB - BLOOD BANK ORDERABLES F inal Result [facility] [address] documented in this encounter Visit Diagnoses Not on filedocumented in this encounter Care Teams Qa Analyst Relationship Specialty Start Date End Date Jeff Strickland MD [address] [place] [address] PCP - General 03/05/18 [place] [address] [place] [address] Orthopedic Surgery 03/28/17 documented as of this encounter
--- OUTSIDE RECORDS SUMMARY | 2024-07-24 21:34 | XMS_ITS ---
Author Organization [facility] Address [address] [place] [address] Care Team Providers Care Legal Internship Name Role Phone Deandre Bojorquez MD Unavailable [phone] Jeff Strickland MD Primary Care Provider [phone] Transplant Episode Kidney Candidate [facility] ([place], [place]) - [facility] Center waitlisted on 05/06/2022 Marked as Inactive on 12/19/2022 Reason: Temporarily too Sick Kidney CoordinatorSavanna Edwards RN Phone: N/A Fax: N/A Email: N/A Scores Score Value Updated Exceptions/Reas ons CPRA Not available EPTS (Calc) 95 07/24/2024 [facility] Organ Diagnosis Organ Primary Contributory Kidney Diabetes Mellitus - Type II Hype rtensive Nephrosclerosis Care Team Name Role Phone Fax Email Savanna Edwards RN Kidney Coordinator N/A N/A N/A Alan Mccall MD Referring Physician [phone] N/A Anjali Mott LMSW Battalion Chief N/A N/A N/A Millie Lindquist Cost Control Specialist N/A N/A N/A Events Pre-Transplant Referred: 12/05/2021 Evaluation began: 12/13/2021 Committee: 05/02/2022 UNOS qualified: 01/17/2020 Center waitlisted: 05/06/2022 Appointments (06/23/2024 - 08/23/2024) When With Visit Type Description 06/23/2024 Transplant Sl Education Transplant No Show Dialysis History Dialysis History Start End Type Comments Center 01/17/2020 Peritoneal [facility] Information Center Phone Fax Address [facility] [phone] [address] [place] [phone]
--- OUTSIDE RECORDS SUMMARY | 2024-07-24 21:34 | XMS_ITS | Encounter Summary ---
Author Organization [facility] Address [facility]3 [place] [address] Care Team Providers Care Customer Experience Intern Name Role Phone Deandre Bojorquez MD Unavailable Jeff Strickland MD Primary Care Provider [phone] Encounter Details Date Type Department Care Team (Late st Contact Info) Description 11/21/2023 Lab Requisition [facility] MAIN LAB [address] [place] [id number] Alan Davenport MD [facility] [place] [address] Social History Tobacco Use Types Packs/Day Years Used Date Smoking Tobacco: Never Smokeless Tobacco: Never Alcohol Use Standard Drinks/Week Comments Not Currently 0 (1 standard drink = 0.6 oz pur e alcohol) socially in past Sex and Gender Information Value Date Recorded Sex Assigned at Male 07/02/2021 2:37 PM CDT 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 Gender Identity Male 07/02/2021 2:37 PM CDT [...] CDT Appointment [facility] MRI [address] [place] [address] Thomas Mendoza MD [address] [place] [address] 2L [place] [address] 08/04/2024 1:30 PM CDT Office Visit [facility] - Urology [address] [place] [address] Thomas Mendoza MD [address] [place] [address] 2L [place] [address] 09/13/2024 10:40 AM CDT Office Visit [facility] - Endocrinology [address] [place] [address], [place] [address] Niraj Turner MD [address] [place] [address] 2L [place] [address] 10/13/2024 1:00 PM CDT Office Visit [facility] - Cardiology [address] [facility] [place] [address] [place] [address] Maylin Cutler DO [address] [facility] [address] [place] [address] Scheduled Procedures Name Priority Associated Diagnoses Date/Ti me CCL STAGED PERC CORONARY INTERVENTION Abnormal stress test Dyspnea on exertion Pre-kidney transplant, listed Coronary artery disease with angina pectoris, unspecified vessel or lesion type, unspecified whether [place] or transplanted heart Abnormal findings on cardiac catheterization documented as of this encounter Procedures Procedure Name Priority Date/Time Associated Diagnosis Comments HOLD HLA SPECIMEN Routine 11/18/2023 12: 16 PM CDT documented in this encounter Results * HOLD HLA SPECIMEN (11/18/2023 12:16 PM CDT) Hold HLA Specimen 11/21/2023 1:31 PM CDT [facility] ([facility]) Comment:The Hold HLA specime n has been received into the lab and will be held for 5 years at 4 degrees. Blood BLOOD SPECIMEN / Unknown 11/18/2023 12:16 PM CDT 11/21/2023 12:17 PM CDT Alan Davenport MD LAB - BLOOD BANK ORDERABLES F inal Result [facility] ([facility]) [address] documented in this encounter Visit Diagnoses Not on filedocumented in this encounter Care Teams Customer Experience Intern Relationship Specialty Start Date End Date Jeff Strickland MD [address] [place] [address] PCP - General 03/05/18 [place] [address] [place] [address] Orthopedic Surgery 03/28/17 documented as of this encounter
--- OUTSIDE RECORDS SUMMARY | 2024-07-24 21:34 | XMS_ITS | Encounter Summary ---
Author Organization [facility] Address [facility]3 [place] [address] Care Team Providers Care Silvering Applicator Name Role Phone Deandre Bojorquez MD Unavailable [phone] Jeff Strickland MD Primary Care Provider [phone] Encounter Details Date Type Department Care Team (Late st Contact Info) Description 04/29/2024 Lab Requisition [facility] MAIN LAB [address] [place] [phone] Alan Davenport MD [facility] [place] [address] Social History Tobacco Use Types Packs/Day Years Used Date Smoking Tobacco: Never Smokeless Tobacco: Never Alcohol Use Standard Drinks/Week Comments Not Currently 0 (1 standard drink = 0.6 oz pur e alcohol) socially in past Sex and Gender Information Value Date Recorded Sex Assigned at Male 07/02/2021 2:37 PM CDT 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 Gender Identity Male 07/02/2021 2:37 PM CDT [...] Info) Description 08/04/2024 11:30 AM CDT Appointment [facility] MRI [address] [place] [address] Thomas Mendoza MD [address] [place] [address] 2L [place] [address] 08/04/2024 1:30 PM CDT Office Visit [facility] - Urology [address] [place] [address] Thomas Mendoza MD [address] [place] [address] 2L [place] [address] 09/13/2024 10:40 AM CDT Office Visit [facility] - Endocrinology [address] [place] [address], [place] [address] Niraj Turner MD [address] [place] [address] 2L Div [place] [address] 10/13/2024 1:00 PM CDT Office Visit [facility] - Cardiology [address] [facility] [place] [address] [place] [address] Maylin Cutler DO [address] [facility] [address] [place] [address] Scheduled Procedures Name Priority Associated Diagnoses Date/Ti me CCL STAGED PERC CORONARY INTERVENTION Abnormal stress test Dyspnea on exertion Pre-kidney transplant, listed Coronary artery disease with angina pectoris, unspecified vessel or lesion type, unspecified whether [place] or transplanted heart Abnormal findings on cardiac catheterization documented as of this encounter Procedures Procedure Name Priority Date/Time Associated Diagnosis Comments HOLD HLA SPECIMEN Routine 04/27/2024 1:4 8 PM CDT documented in this encounter Results * HOLD HLA SPECIMEN (04/27/2024 1:48 PM CDT) Hold HLA Specimen 04/29/2024 3:02 PM CDT [facility] Comment:The Hold HLA specime n has been received into the lab and will be held for 5 years at 4 degrees. Blood BLOOD SPECIMEN / Unknown 04/27/2024 1:48 PM CDT 04/29/2024 1:49 PM CDT Alan Davenport MD LAB - BLOOD BANK ORDERABLES F inal Result [facility] ([facility]) [address] documented in this encounter Visit Diagnoses Not on filedocumented in this encounter Care Teams Silvering Applicator Relationship Specialty Start Date End Date Jeff Strickland MD [address] [place] [address] PCP - General 03/05/18 [place] [address] [place] [address] Orthopedic Surgery 03/28/17 documented as of this encounter
--- OUTSIDE RECORDS SUMMARY | 2024-07-24 21:34 | XMS_ITS | Continuity of Care Document ---
Author Organization [facility] Address [address] [facility] [address] [place] [address] Phone Care Team Providers Care Carpenter Ship Name Role Phone Olu Payan Unavailable Unavailable [...] Diagnoses Date Provider Providers Copied on Encounter [facility], [place], [place], [id number], tel:[phone] [place] No Information [address] [place] [address], [address], [place], [place], [facility], . tel: [phone] [address] [place] [address], [place], [place], [id number], tel:[phone] [place] No Information 4 Genoveva Mcdonald. . Referring Provider: Jeff Strickland [address] [place] [address] [address], [place], [place], [facility]. tel:[phone] [place] [address], [place], [place], [id number], tel:[phone] [place] No Information 4 Gladis Olu. [address] [place] [address], [address], [place], [place], [facility], . tel: [phone] Referring Provider: Yanira Chin [facility] [address], [place], [facility]. tel:[phone] [place] [address], [place], [place], [id number], tel:[phone] [place] No Information 4 Gladis Raines. [address] [place] [address], [address], [place], [place], [facility], . tel: [phone] Referring Provider: Yanira Chin [facility] [address], [place], [address]. tel:[phone], [id number], tel:[phone] [place] No Information 4 Jacinto Fairchild. . Referring Provider: Yanira Chin [facility] [address], [place], [address]. tel:[phone] [address], [place], [place], [id number], [place] tel:[phone] [place] No Information 4 Jacinto Fairchild. . Referring Provider: Jeff Strickland [address] [place] [address] [address], [place], [facility]. tel:[phone], [id number], tel:[phone] [place] No Information 4 Genoveva Mcdonald. . Referring Provider: Jeff Strickland [address] [place] [address] [address], [place], [facility]. tel:[phone], [id number], tel:[phone] [place] No Information 4 Gladis Raines. [address] [facility], [address], [place], [facility], . tel: [phone] Referring Provider: Jeff Strickland [address] [place] [address] [address], [place], [facility]. tel:[phone], [id number], tel:[phone] [place] No Information 0 4 Genoveva Mcdonald. . Referring Provider: Jeff Strickland [address] [place] [address] [address], [place], [facility]. tel:[phone] [address], [place], [id number], [place] tel:[phone] [place] No Information 0 4 Gladis Raines. [address] [facility], [address], [place], [facility], . tel: [phone] Referring Provider: Jeff Strickland [address] [place] [address] [address], [place], [facility]. tel:[phone] Family History Family Member Type Diagnosis Age At Onset No Information Payers Payer name Insurance type Covered alliance party ID Diego suarez(ernesto Hadley [id number] Social History Type Description Quantity Date Captured [...]
--- OUTSIDE RECORDS SUMMARY | 2024-07-24 21:34 | XMS_ITS | Encounter Summary ---
Author Organization [facility] Address [facility] [place] [address] Care Team Providers Care Application Development Liaison Name Role Phone Deandre Bojorquez MD Unavailable [phone] Jeff Strickland MD Primary Care Provider [phone] Encounter Details Date Type Department Care Team (Late st Contact Info) Description 06/25/2024 Lab Requisition [facility] MAIN LAB [address] [place] [phone] Alan Davenport MD [facility] [place] [address] Social History Tobacco Use Types Packs/Day Years Used Date Smoking Tobacco: Never Smokeless Tobacco: Never Alcohol Use Standard Drinks/Week Comments Not Currently 0 (1 standard drink = 0.6 oz pur e alcohol) socially in past Sex and Gender Information Value Date Recorded Sex Assigned at Male 07/02/2021 2:37 PM CDT Legal Sex Male 10:14 PM PLASMA TABLE OPERATOR Gender Identity Male 07/02/2021 2:37 PM [...] CDT Appointment [facility] MRI [address] [place] [address] Thomas Mendoza MD [address] [place] [address] 2L [place] [address] 08/04/2024 1:30 PM CDT Office Visit [facility] - Urology [address] [place] [address] Thomas Mendoza MD [address] [place] [address] 2L [place] [address] 09/13/2024 10:40 AM CDT Office Visit [facility] - Endocrinology [address] [place] [address], [place] [address] Nirja Turner MD [address] [place] [address] 2L [place] [address] 10/13/2024 1:00 PM CDT Office Visit [facility] - Cardiology [address] [facility] [place] [address] [place] [address] Maylin Cutler DO [address] [facility] [address] [place] [address] Scheduled Procedures Name Priority Associated Diagnoses Date/Ti me CCL STAGED PERC CORONARY INTERVENTION Abnormal stress test Dyspnea on exertion Pre-kidney transplant, listed Coronary artery disease with angina pectoris, unspecified vessel or lesion type, unspecified whether [place] or transplanted heart Abnormal findings on cardiac catheterization documented as of this encounter Procedures Procedure Name Priority Date/Time Associated Diagnosis Comments HOLD HLA SPECIMEN Routine 06/22/2024 11: 05 AM CDT documented in this encounter Results * HOLD HLA SPECIMEN (06/22/2024 11:05 AM CDT) Hold HLA Specimen 06/25/2024 12:32 PM CDT [facility] ([facility]) Comment:The Hold HLA specime n has been received into the lab and will be held for 5 years at 4 degrees. Blood BLOOD SPECIMEN / Unknown 06/22/2024 11:05 AM CDT 06/25/2024 11:05 AM CDT Alan Davenport MD LAB - BLOOD BANK ORDERABLES F inal Result [facility] ([facility]) [address] documented in this encounter Visit Diagnoses Not on filedocumented in this encounter Care Teams Application Development Liaison Relationship Specialty Start Date End Date Jeff Strickland MD [address] [place] [address] PCP - General 03/05/18 [place] [address] [place] [address] Orthopedic Surgery 03/28/17 documented as of this encounter
--- OUTSIDE RECORDS SUMMARY | 2024-07-24 21:34 | XMS_ITS | Encounter Summary ---
Author Organization [facility] Address [facility]3 [place] [address] Care Team Providers Care Automatic Punch Press Operator Name Role Phone Deandre Bojorquez MD Unavailable [phone] Jeff Strickland MD Primary Care Provider [phone] Encounter Details Date Type Department Care Team (Late st Contact Info) Description 02/04/2024 Lab Requisition [facility] MAIN LAB [address] [place] [address] Alan Davenport MD [facility] ABD [place] [address] Social History Tobacco Use Types Packs/Day Years Used Date Smoking Tobacco: Never Smokeless Tobacco: Never Alcohol Use Standard Drinks/Week Comments Not Currently 0 (1 standard drink = 0.6 oz pur e alcohol) socially in past Sex and Gender Information Value Date Recorded Sex Assigned at Male 07/02/2021 2:37 PM CDT Legal Sex Male 10:14 PM CARPENTER SUPERVISOR WOODEN SHIP Gender Identity Male 07/02/2021 2:37 PM CDT [...] [facility] MRI [address] [place] [address] Thomas Mendoza MD [address] [place] [address] 2L [place] [address] 08/04/2024 1:30 PM CDT Office Visit [facility] - Urology [address] [place] [address] Thomas Mendoza MD [address] [place] [address] 2L [place] [address] 09/13/2024 10:40 AM CDT Office Visit [facility] - Endocrinology [address] [place] [address], [place] [address] Niraj Turner MD [address] [place] [address] 2L [place] [address] 10/13/2024 1:00 PM CDT Office Visit [facility] - Cardiology [address] [facility] [place] [address] [place] [address] Maylin Cutler DO [address] [facility] [address] [place] [address] Scheduled Procedures Name Priority Associated Diagnoses Date/Ti me CCL STAGED PERC CORONARY INTERVENTION Abnormal stress test Dyspnea on exertion Pre-kidney transplant, listed Coronary artery disease with angina pectoris, unspecified vessel or lesion type, unspecified whether [place] or transplanted heart Abnormal findings on cardiac catheterization documented as of this encounter Procedures Procedure Name Priority Date/Time Associated Diagnosis Comments HOLD HLA SPECIMEN Routine 01/27/2024 3:2 3 PM CARPENTER SUPERVISOR [employer]IP documented in this encounter Results * HOLD HLA SPECIMEN (01/27/2024 3:23 PM CARPENTER SUPERVISOR [employer]) Hold HLA Specimen 02/04/2024 4:31 PM CARPENTER SUPERVISOR WOODEN SHIP [facility] Comment:The Hold HLA specime n has been received into the lab and will be held for 5 years at 4 degrees. Blood BLOOD SPECIMEN / Unknown 01/27/2024 3:23 PM CARPENTER SUPERVISOR WO[employer]IP 02/04/2024 3:23 PM CARPENTER SUPERVISOR WOODEN SHIP Alan Davenport MD LAB - BLOOD BANK ORDERABLES F inal Result [facility] [address] documented in this encounter Visit Diagnoses Not on filedocumented in this encounter Care Teams Automatic Punch Press Operator Relationship Specialty Start Date End Date Jeff Strickland MD [address] [place] [address] PCP - General 03/05/18 [place] [address] [place] [address] Orthopedic Surgery 03/28/17 documented as of this encounter
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
--- OUTSIDE RECORDS SUMMARY | 2024-07-24 21:34 | XMS_ITS | Encounter Summary ---
Author Organization [facility] Address [address] [place] [address] Phone Care Team Providers Care Hoop Expander Name Role Phone Jeff Strickland MD Primary Care Provider Chan Nicholas MD Unavailable [phone] Alan Mccall MD Unavailable [phone] Pepito Haro MD PhD Unavailable [phone] Solange Guido MD Unavailable [phone] Reason for Visit * Consultation (Routine) - Authorized Specialty Diagnoses / Procedures Referred By Contac t Referred To Contact Endocrinology Diagnoses Type 2 diabetes mellitus with chronic kidney disease on chronic dialysis, with long-term current use of insulin (HCC) Jeff Strickland MD [address] [facility] [address] [place] [address] Phone: tel: fax: [facility] (All Locations) Referral ID Status Reason Start Date Expiration Date Visits Requested Visits Authorized [id number] Authorized Specialty Services Required 10/24/2023 11/22/2024 12 12 Encounter Details Date Type Department Care Team (Latest Contact Info) Description 07/23/2024 1:30 PM CDT Office Visit [facility] Endocrinology Metabolism and Lipid [address] [facility] 13th [place] [address] [place] [address] Gregory Curtis MD [address] [place] [address] Type 2 diabetes mellitus with chronic kidney disease on chronic dialysis, with long-term current use of insulin (HCC) (Primary Dx) Social History Tobacco Use Types Packs/Day Years Used Date Smoking Tobacco: Never Smokeless Tobacco: Never Tobacco Cessation:Counseling Given: Not Answered Alcohol Use Standard Drinks/Week Comments Yes 0 (1 standard drink = 0.6 oz pur e alcohol) rarely [facility] Utilities Answer Date Recorded In the past 12 months has [employer] electric, gas, oil, or water company threatened [...] often do you attend chur ch or bahai services? Never 03/25/2023 Do you belong to any clubs o r organizations such as christian groups, unions, fraternal or athletic groups, or [...] on file Legal Sex Male 2:23 AM GEODUCK DIVER Gender Identity Not on file Sexual Orientation [...] Priority Date/Time Associated Diagnosis Comments POCT GLUCOSE [id number] Routine 07/23/2024 1: 26 PM CDT Type 2 diabetes mellitus with chronic kidney disease on chronic dialysis, with long-term current use of insulin (HCC) documented in this encounter Results * POCT glucose (07/23/2024 1:26 PM CDT) [facility] Glucose Blood, POC 104 Normal Fasting 70 [...] 07/21/2024 added in this encounter Care Teams Hoop Expander Relationship Specialty Start Date End Date Jeff Strickland MD [address] [place] [address] PCP - General Family Medicine 04/02/18 Chan Nicholas MD [address] [place] [address] Consulting Physician Gastroenterology 11/24/18 Alan Mccall MD [address] [place] [address] Referring Physician Nephrology 11/24/18 Pepito Haro MD PhD [address] [place] [address] Consulting Physician Neurosurgery 12/03/22 Solange Guido MD [address] [facility] [address] [place] [address] Referring Physician Cardiovascular Disease 07/23/23 documented as of this encounter
--- OUTSIDE RECORDS SUMMARY | 2024-07-24 21:34 | XMS_ITS | Continuity of Care Document ---
Author Organization [facility] Address [address] [place] [address] Phone Care Team Providers Care Operator Catalyst Concentration Name Role Phone Kee Rodriguez Unavailable Unavailable Procedures Procedure Date Office/outpatient Visit, Est Eye Exam Established Pt Advance Directives Directive Yes / No Effective Date File Name No Information Encounters Encounter Description Practice Location Reason(s) For Visit Diagnoses Date Provider Providers Copied on Encounter Office/outpat ient Visit, Est Located within [facility], [address] [place] [address] [address], [place], [place], [id number], tel:[phone] [facility] No Information Mar-0 2-201 0 Krishnasamy Kee. [address] [facility] [place] [address], [place], [place], [facility], [place]. tel:[phone] Located within [facility], [address] [place] [address] [address], [place], [place], [id number], tel:[phone] [facility] No Information Nhan-3 0-200 7 David OD Freddy. [address], [place], [place], [facility], [place]. tel:[phone] Family History Family Member Type Diagnosis Age [...]
--- OUTSIDE RECORDS SUMMARY | 2024-07-24 21:34 | XMS_ITS | Encounter Summary ---
Author Organization [facility] Address [facility] [place] [address] Care Team Providers Care Community Services Coordinator Name Role Phone Deandre Bojorquez MD Unavailable [phone] Jeff Strickland MD Primary Care Provider [phone] Encounter Details Date Type Department Care Team (Late st Contact Info) Description 03/12/2024 Lab Requisition [facility] MAIN LAB [address] [place] [address] Alan Davenport MD [facility] [place] [address] Social History Tobacco Use Types Packs/Day Years Used Date Smoking Tobacco: Never Smokeless Tobacco: Never Alcohol Use Standard Drinks/Week Comments Not Currently 0 (1 standard drink = 0.6 oz pur e alcohol) socially in past Sex and Gender Information Value Date Recorded Sex Assigned at Male 07/02/2021 2:37 PM CDT Legal Sex Male 10:14 PM FIRE PREVENTION BUREAU CAPTAIN Gender Identity Male 07/02/2021 2:37 PM CDT [...] 08/04/2020 12:15 PM CDT Monique Sáurez RN documented as of this encounter Mental Status * Does person have difficulty concentrating/remembering/making decisions? Answer Entry Date Author No 08/04/2020 12:15 PM CDT Monique Suárez RN documented in this encounter Plan of Treatment Upcoming Encounters Date Type Department Care Team (Late st Contact Info) Description 08/04/2024 11:30 AM CDT Appointment [facility] MRI [address] [place] [address] Thomas Mendoza MD [address] [place] [address] [address] [place] [address] 08/04/2024 1:30 PM CDT Office Visit [facility] - Urology [address] [place] [phone] Thomas Mendoza MD [address] [place] [place] [address] [address] [place] [address] 09/13/2024 10:40 AM CDT Office Visit [facility] - Endocrinology [address] [place] [address], [place] [address] Niraj Turner MD [address] [place] [address] 2L [place] [address] 10/13/2024 1:00 PM CDT Office Visit [facility] - Cardiology [address] [facility] [place] [address] Maylin Cutler DO [address] [facility] [address] [place] [address] Scheduled Procedures Name Priority Associated Diagnoses Date/Ti [...] HLA SPECIMEN Routine 03/05/2024 1:4 0 PM FIRE PREVENTION BUREAU CAPTAIN documented in this encounter Results * HOLD HLA SPECIMEN (03/05/2024 1:40 PM FIRE PREVENTION BUREAU CAPTAIN) Hold HLA Specimen 03/12/2024 3:00 PM FIRE PREVENTION BUREAU CAPTAIN [facility] Comment:The Hold HLA specime n has been received into the lab and will be held for 5 years at 4 degrees. Blood BLOOD SPECIMEN / Unknown 03/05/2024 1:40 PM FIRE PREVENTION BUREAU CAPTAIN 03/12/2024 1:40 PM FIRE PREVENTION BUREAU CAPTAIN Alan Davenport MD LAB - BLOOD BANK ORDERABLES F inal Result [facility] [address] documented in this encounter Visit Diagnoses Not on filedocumented in this encounter Care Teams Community Services Coordinator Relationship Specialty Start Date End Date Jeff Strickland MD [address] [place] [address] PCP - General 03/05/18 [place] [address] [place] [address] Orthopedic Surgery 03/28/17 documented as of this encounter
--- OUTSIDE RECORDS SUMMARY | 2024-07-24 21:34 | XMS_ITS | Encounter Summary ---
Author Organization [facility] Address [facility] [place] [address] Care Team Providers Care Engine Monitor Name Role Phone Deandre Bojorquez MD Unavailable [phone] Jeff Strickland MD Primary Care Provider [phone] Encounter Details Date Type Department Care Team (Late st Contact Info) Description 09/30/2023 Lab Requisition [facility] MAIN LAB [address] [place] [phone] Alan Davenport MD 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 Gender Identity Male 07/02/2021 2:37 PM [...] Info) Description 08/04/2024 11:30 AM CDT Appointment [facility] MRI [address] [place] [address] Thomas Mendoza MD [address] [place] [address] [address] [place] [address] 08/04/2024 1:30 PM CDT Office Visit [facility] - Urology [address] [place] [phone] Thomas Mendoza MD [address] [place] [address] [address] [place] [address] 09/13/2024 10:40 AM CDT Office Visit [facility] - Endocrinology [address] [place] [address], [place] [address] Niraj Turner MD [address] [place] [address] 2L Div [place] [address] 10/13/2024 1:00 PM CDT Office Visit [facility] - Cardiology [address] [facility] [place] [address] Maylin Cutler DO [address] [facility] [facility] [address] [place] [address] Scheduled Procedures Name Priority Associated Diagnoses Date/Ti me CCL STAGED PERC CORONARY INTERVENTION Abnormal stress test Dyspnea on exertion Pre-kidney transplant, listed Coronary artery disease with angina pectoris, unspecified vessel or lesion type, unspecified whether lower [place] or transplanted heart Abnormal findings on cardiac catheterization documented as of this encounter Procedures Procedure Name Priority Date/Time Associated Diagnosis Comments HOLD HLA SPECIMEN Routine 09/24/2023 3:2 7 PM CDT documented in this encounter Results * HOLD HLA SPECIMEN (09/24/2023 3:27 PM CDT) Hold HLA Specimen 09/30/2023 4:32 PM CDT [facility] Comment:The Hold HLA specime n has been received into the lab and will be held for 5 years at 4 degrees. Blood BLOOD SPECIMEN / Unknown 09/24/2023 3:27 PM CDT 09/30/2023 3:27 PM CDT Alan Davenport MD LAB - BLOOD BANK ORDERABLES F inal Result [facility] [address] documented in this encounter Visit Diagnoses Not on filedocumented in this encounter Care Teams Engine Monitor Relationship Specialty Start Date End Date Jeff Strickland MD [address] [place] [address] PCP - General 03/05/18 [place] [address] [place] [address] Orthopedic Surgery 03/28/17 documented as of this encounter
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
--- NOTE | 2024-07-24 21:37 | PC.NURSE ---
pulses found with doppler on the left foot and marked.
[2024-07-24 22:21] LABS: Basophils Percent Auto 0.1 % (0.2-1.2); Eosinophils Percent Auto 0.5 % (0-4.4); Hematocrit 30.6 % (42.0-52.0); Hemoglobin 9.4 g/dL (14.0-18.0); Immature Granulocyte Absolute 0.07 K/mm3 (0.00-0.031); Immature Granulocyte Percent A 0.8 % (0-0.5); Lymphocytes Absolute Auto 0.93 K/mm3 (0.9-3.2); Lymphocytes Percent Auto 11.1 % (18.3-44.2); Mean Corpuscular HGB Conc 30.7 g/dl (32-36); Mean Corpuscular Hemoglobin 29.6 pg (26-34); Mean Corpuscular Volume 96.2 fl (80-100); Mean Platelet Volume 10.2 fl (7.4-10.4); Monocytes Absolute Auto 1.1 K/mm3 (0.1-0.6); Monocytes Percent Auto 12.9 % (2.6-8.5); Neutrophils Absolute Auto 6.2 K/mm3 (1.3-6.7); Neutrophils Percent Auto 74.6 % (45.5-73.1); Platelet Count Result 166 k/mm3 (150-375); Red Blood Count 3.18 M/mm3 (4.6-6.20); Red Cell Distribution Width 15.8 % (11.5-14.5); White Blood Count 8.4 K/mm3 (4.5-10.0)
[2024-07-24 22:42] LABS: INR 1.1; Prothrombin Time 14.1 Seconds (11.1-14.7)
[2024-07-24 22:43] LABS: Partial Thromboplastin Time 25.2 Seconds (22.3-36.8)
[2024-07-24 22:47] LABS: Erythrocyte Sedimentation Rate 113 mm/hr (0-20)
[2024-07-24 22:53] LABS: D Dimer 0.53 ug/mL (<0.48); Lactic Acid Reflex 1.7 mmol/L (0.7-2.0)
[2024-07-24 22:55] LABS: Alanine Aminotransferase 25 U/L (6-50); Albumin Level 3.2 g/dL (3.5-5.1); Alkaline Phosphatase 45 U/L (38-126); Anion Gap 12 mmol/L (4-12); Aspartate Amino Transferase 43 U/L (17-59); Bilirubin,Total 0.4 mg/dL (0.2-1.3); Blood Urea Nitrogen 35 mg/dL (9-20); CRP 1.1 mg/dL (<1.0); Calcium 8.8 mg/dL (8.4-10.2); Carbon Dioxide 29 mmol/L (22-30); Chloride 95 mmol/L (98-107); Estimated CRCL calculation 9 ml/min; Estimated Glomerular Filt Rate 6; Glucose 109 mg/dL (65-110); Magnesium 1.2 mg/dL (1.6-2.3); Potassium 3.3 mmol/L (3.4-5.0); Sodium 136 mmol/L (137-145)
[2024-07-24] MEDS: MORPHINE SULFATE (*CRX) 4 MG/ML INJ IV PUSH (23:02)
[2024-07-24 23:06] LABS: NT Pro B Type Natriuretic Pept 15700 pg/mL (19.9-100)
[2024-07-24 23:13] LABS: Glucose Point of Care 90 mg/dl (65-105)
[2024-07-24] MEDS: POTASSIUM CHLORIDE 20 MEQ PACKET (FOR LIQUID) PO (23:13)
[2024-07-24] MEDS: MAGNESIUM SULF 2 GM/WATER 50ML 2 GM/50 ML BAG IVPB (23:13)
--- NOTE | 2024-07-24 23:25 | ED_ITS ---
HPI - Extremity Injury (Lower) General Chief Complaint: Extremity Injury, Lower <Thais Rosales PA-C - Last Filed: 07/25/24 02:32> Stated Complaint: left foot pain <Thais Rosales PA-C - Last Filed: 07/25/24 02:32> Time Seen by Provider: 07/24/24 21:11 <Thais Rosales PA-C - Last Filed: 07/25/24 02:32> History of Present Illness HPI Narrative: 69-year-old male with history of ESRD on peritoneal dialysis, insulin- dependent type 2 diabetes, hypothyroidism, CAD, hyperlipidemia, CHF presents to emergency department with at bedside for pain to his left foot. 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 He has been following with his rock mason apprentice since because it is not healed well. Over the past few days the area has become more red and painful than the come to the ED tonight. He also was endorsing some swelling to the left lower extremity over the past few days and pain to his calf. He states he was scheduled for an outpatient Doppler in the next few days. He denies history of VTE, hemoptysis, cough or congestion, chest pain or abdominal pain, fever. He is endorsing some shortness of breath that is worse with exertion. Denies orthopnea. He has not gone through his peritoneal dialysis tonight but does respond exchange earlier today. States he does not make any urine. <Thais Rosales PA-C - Last Filed: 07/25/24 02:32> Related Data Home Medications: Home Medications ?Medication ?Instructions ?Recorded ?Confirmed ?Last Taken ?Type aspirin 81 mg tablet,delayed 81 mg PO HS 02/01/19 07/25/24 06/29/24 History release (Sami Low Dose Aspirin) vit C 250 mg-vit E 200 unit-zinc 1 tablet PO Q12H 02/01/19 07/25/24 06/29/24 History 12.5 mg-copper 1 xu-cmh-cakemn tablet (ICaps AREDS2 (copper citrate)) cholecalciferol (vitamin D3) 125 125 mcg PO DAILY 10/01/22 07/25/24 06/29/24 History mcg (5,000 unit) tablet (Vitamin D3) atorvastatin 80 mg tablet 80 mg PO HS 09/02/23 07/25/24 06/29/24 History folic acid 0.8 mg-vit B comp with 800 tablet PO DAILY 04/03/24 07/25/24 06/29/24 History T-rlmc-guxdkan D3 2,000 unit tablet (Dialyvite 800-Ultra D) insulin aspart U-100 100 unit/mL 1 sliding scale dose subcut TID 04/03/24 07/25/24 06/29/24 History (3 mL) subcutaneous pen (Novolog FlexPen U-100 Insulin aspart) insulin glargine 100 unit/mL (3 35 unit subcut HS 04/03/24 07/25/24 06/29/24 History mL) subcutaneous pen (Basaglar KwikPen U-100 Insulin) furosemide 80 mg tablet 80 mg PO BID 04/21/24 07/25/24 06/30/24 09:00 History lisinopril 20 mg tablet 20 mg PO BID 04/21/24 07/25/24 06/30/24 09:00 History blood-glucose transmitter (Dexcom 04/23/24 07/07/24 Unknown History G6 Transmitter device) carvedilol 25 mg tablet 25 mg PO BID 06/17/24 07/25/24 06/30/24 09:00 History diltiazem HCl 120 mg 120 mg PO BID 06/17/24 07/25/24 06/29/24 History capsule,extended release 12 hr tamsulosin 0.4 mg capsule 0.4 mg PO HS 06/17/24 07/25/24 06/29/24 History clonidine 0.2 mg/24 hr weekly 1 patch topical WEEKLY 07/25/24 07/25/24 07/23/24 History transdermal patch clopidogrel 75 mg tablet 75 mg PO HS 07/25/24 07/25/24 Unknown History gabapentin 300 mg capsule 300 mg PO Q12H 07/25/24 07/25/24 Unknown History hydralazine 10 mg tablet 10 mg PO TID PRN hypertension 07/25/24 07/25/24 Unknown History <Thais Rosales PA-C - Last Filed: 07/25/24 02:32> Allergies/Adverse Reactions: Allergies Allergy/AdvReac Type Severity Reaction Status Date / Time oxycodone AdvReac Unknown Hallucinati Verified 07/25/24 03:18 ng <Thais Rosales PA-C - Last Filed: 07/25/24 02:32> Review of Systems 2 Review of Systems: All systems reviewed & are unremarkable except as noted in HPI and below <Thais Rosales PA-C - Last Filed: 07/25/24 02:32> [facility] Past Medical History Medical History: Medical History Chronic diarrhea Family history of colon cancer in father Chronic ethmoidal sinusitis Nasal congestion Bilateral impacted cerumen Allergic rhinitis Chronic sinusitis Chronic recurrent sinusitis Hypertensive CHF C. difficile colitis Arthritis Kidney stones Benign prostatic hyperplasia Coronary artery disease End-stage renal disease on peritoneal dialysis Obstructive sleep apnea Insulin dependent type 2 diabetes mellitus Renal cell carcinoma Status post partial left nephrectomy. Dyslipidemia Clostridium difficile infection Gastroesophageal reflux disease Depression with anxiety Hypothyroidism Cirrhosis Pituitary tumor Status post resection. Anemia Chronic diastolic (congestive) heart failure Hypertension <Thais Rosales PA-C - Last Filed: 07/25/24 02:32> Surgical History Surgical History: Surgical History History of open reduction and internal fixation (ORIF) procedure (11/2022) Screw fixation of sternal fracture. History of colonoscopy with polypectomy History of umbilical hernia repair History of inguinal hernia repair History of coronary artery stent placement History of cardiac catheterization (08/2020) Stent x2 to the LAD. History of arthroplasty of right knee History of cataract extraction History of pituitary surgery (11/2021) History of partial nephrectomy Partial left nephrectomy for renal cell carcinoma. History of cholecystectomy (2007) <Thais Rosales PA-C - Last Filed: 07/25/24 02:32> Family History Family History: Family History (Updated 07/25/24 @ 04:32 by Jared Curran RN) Mother Aneurysm Hypertension Cerebrovascular accident Heart murmur Father Carcinoma of colon <Thais Rosales PA-C - Last Filed: 07/25/24 02:32> Social History Social History: Social History Social History: Surrogate medical decision maker: Harriet Carl, spouse. Code status: Full code. Smoking status: Never smoker Second hand tobacco smoke exposure: No Alcohol intake: never Alcohol use details: rare, holidays Substance use: never Substance use type: does not use Do You Feel Safe in your Home?: Yes Lack of Transportation: No Lack of Food: Never True Current Housing: I Have Housing Concerned About Future Housing: No Difficulty Paying Gas/Electric Bills: No Difficulty Paying for Meds: No Currently Unemployed: No Education: Trade/Vocational Certificate Difficulty w/ Childcare or Family Care: No Living arrangements: with family Additional living arrangements comments: Lives with spouse in [place]. Occupation/Education: retired Additional occupation/education comments: [employer]. Spiritual care concerns: No Agree to blood products: Yes <Thais Rosales PA-C - Last Filed: 07/25/24 02:32> Exam 2 Narrative: GENERAL: Well-appearing, well-nourished, and in no acute distress. HEAD: Normocephalic, atraumatic. EYES: EOMI. ENT: Nares clear, no rhinorrhea or epistaxis. Mucous membranes moist. NECK: Supple. CHEST: Clear to auscultation. No respiratory distress. HEART: Regular rate and rhythm. No murmur heard. Normal peripheral pulses. ABDOMEN: Soft, nontender, nondistended, normal active bowel sounds. Peritoneal dialysis port with no visualized surrounding skin changes EXTREMITIES: LLE: Great toenail bed spontaneous purulent drainage to the proximal nail fold and small area of fluctuance to the dorsum of the toe. Warmth and erythema to the great toe extending into the dorsum of the foot. Stage II ulcer to the medial aspect of the left great toe with moist base. Pitting edema to bilateral lower extremities, left greater than right. DP pulses easily dopplered, extremities are pink, warm and dry. SKIN: Warm, dry, no rash. NEURO: No focal deficits. Alert and oriented x3 <Thais Rosales PA-C - Last Filed: 07/25/24 02:32> Course GRADUATE INTERN/PA Physician Supervision This visit was performed by both a physician and an APC. I performed all aspects of the MDM as documented. <Sascha Bill MD - Last Filed: 07/25/24 07:08> Vital Signs Vital signs: Vital Signs Temperature 36.4 C L 07/24/24 21:08 Pulse Rate 70 07/24/24 21:08 Respiratory Rate 16 07/24/24 21:08 Blood Pressure 161/75 H 07/24/24 21:08 Pulse Oximetry 99 07/24/24 21:08 Oxygen Delivery Room Air 07/24/24 21:08 Temperature 36.2 C L 07/25/24 03:03 Pulse Rate 57 L 07/25/24 04:00 Respiratory Rate 17 07/25/24 03:03 Blood Pressure 147/78 H 07/25/24 03:03 Pulse Oximetry 98 07/25/24 03:03 Oxygen Delivery Room Air 07/25/24 06:26 <Thais Rosales PA-C - Last Filed: 07/25/24 02:32> Vital Signs Temperature 36.4 C L 07/24/24 21:08 Pulse Rate 70 07/24/24 21:08 Respiratory Rate 16 07/24/24 21:08 Blood Pressure 161/75 H 07/24/24 21:08 Pulse Oximetry 99 07/24/24 21:08 Oxygen Delivery Room Air 07/24/24 21:08 Temperature 36.2 C L 07/25/24 03:03 Pulse Rate 57 L 07/25/24 04:00 Respiratory Rate 17 07/25/24 03:03 Blood Pressure 147/78 H 07/25/24 03:03 Pulse Oximetry 98 07/25/24 03:03 Oxygen Delivery Room Air 07/25/24 06:26 <Sascha Bill MD - Last Filed: 07/25/24 07:08> MDM - Extremity Injury (Lower) MDM Narrative Medical decision making narrative: 69-year-old male with history of peritoneal dialysis insulin-dependent diabetes presents to emergency department with concerns for left great toe infection. Patient had his great toenail removed a few months ago by his rock mason apprentice and since then has had progressive redness and pain. Patient also endorsing left lower extremity edema that is greater than right and exertional dyspnea. Vitals with elevated blood pressure, otherwise unremarkable. Exam is notable for the above. CBC without leukocytosis. Hemoglobin is 9.4 which is similar to prior. Chemistries with mild hypokalemia of 3.3 which is been orally repleted. Magnesium also low at 1.2 which is been intravenously repleted. Creatinine consistent [place] [address]. Chest x-ray shows hypoinflation, otherwise no acute findings. EKG with normal sinus rhythm, normal MT interval, prolonged QRS duration of 133, right bundle-branch block, no acute ischemic changes. Troponin is elevated to 0.330. D-dimer mildly elevated at 0.53, VTE unlikely when age adjusted. Foot x-ray shows no acute osseous abnormality. No evidence of osteomyelitis. CRP is within normal limits. Patient and at bedside updated on results. On re-evaluation patient is denying any chest pain and now denying shortness of breath. Will plan to trend troponins. I suspect it is elevated to ESRD. Plan to admit for IV antibiotics for diabetic foot ulcer and consult to wound care. I discussed vancomycin, cefepime and Flagyl dosing with pharmacist, Jacob, who advised I placed the normal order set and he will adjust the dosing per peritoneal dialysis protocol. Discussed with hospitalist, Dr. Johnson, who agrees to admission. Advises med/tele. <Thais Rosales PA-C - Last Filed: 07/25/24 02:32> Lab Data Result diagrams: 07/24/24 22:13 07/24/24 22:13 <Thais Rosales PA-C - Last Filed: 07/25/24 02:32> Labs: Lab Results 07/24/24 07/24/24 07/25/24 Range/Units 22:13 23:09 00:53 WBC 8.4 (4.5-10.0) K/mm3 RBC 3.18 L (4.6-6.20) M/mm3 Hgb 9.4 L (14.0-18.0) g/dL Hct 30.6 L (42.0-52.0) % MCV 96.2 (80-100) fl MCH 29.6 (26-34) pg MCHC 30.7 L (32-36) g/dl RDW 15.8 H (11.5-14.5) % Plt Count 166 (150-375) k/mm3 MPV 10.2 (7.4-10.4) fl Immature Gran % (Auto) 0.8 H (0-0.5) % Neut % (Auto) 74.6 H (45.5-73.1) % Lymph % (Auto) 11.1 L (18.3-44.2) % Cass % (Auto) 12.9 H (2.6-8.5) % Eos % (Auto) 0.5 (0-4.4) % Baso % (Auto) 0.1 L (0.2-1.2) % Lymph # (Auto) 0.93 (0.9-3.2) K/mm3 Cass # (Auto) 1.1 H (0.1-0.6) K/mm3 Eos # (Auto) 0.0 (0-0.3) K/mm3 Baso # (Auto) 0.0 (0.0-0.1) K/mm3 Abs Immat Gran (auto) 0.07 H (0.00-0.031) K/mm3 Absolute Neuts (auto) 6.2 (1.3-6.7) K/mm3 Absolute Nucleated RBC 0.000 (0.0-0.012) K/mm3 Nucleated RBC % 0.0 (0.0-0.2) % ESR 113 H (0-20) mm/hr PT 14.1 (11.1-14.7) Seconds INR 1.1 APTT 25.2 (22.3-36.8) Seconds D-Dimer 0.53 H (<0.48) ug/mL Sodium 136 L (137-145) mmol/L Potassium 3.3 L (3.4-5.0) mmol/L Chloride 95 L (98-107) mmol/L Carbon Dioxide 29 (22-30) mmol/L Anion Gap 12 (4-12) mmol/L BUN 35 H (9-20) mg/dL Creatinine 8.98 H (0.7-1.3) mg/dL Estim Creat Clear Calc 9 ml/min Estimated GFR 6 L (59 - ) Glucose 109 (65-110) mg/dL POC Capillary Glucose 90 77 (65-105) mg/dl Lactic Acid 1.7 (0.7-2.0) mmol/L Calcium 8.8 (8.4-10.2) mg/dL Magnesium 1.2 L (1.6-2.3) mg/dL Total Bilirubin 0.4 (0.2-1.3) mg/dL AST 43 (17-59) U/L ALT 25 (6-50) U/L Alkaline Phosphatase 45 (38-126) U/L Troponin I 0.330 H* (0.000-0.034) ng/mL C-Reactive Protein 1.1 (<1.0) mg/dL NT-Pro-B Natriuret Pep 52823 H (19.9-100) pg/mL Total Protein 6.0 L (6.3-8.2) g/dL Albumin 3.2 L (3.5-5.1) g/dL <Thais Rosales PA-C - Last Filed: 07/25/24 02:32> Lab Results 07/24/24 07/24/24 07/25/24 Range/Units 22:13 23:09 00:53 WBC 8.4 (4.5-10.0) K/mm3 RBC 3.18 L (4.6-6.20) M/mm3 Hgb 9.4 L (14.0-18.0) g/dL Hct 30.6 L (42.0-52.0) % MCV 96.2 (80-100) fl MCH 29.6 (26-34) pg MCHC 30.7 L (32-36) g/dl RDW 15.8 H (11.5-14.5) % Plt Count 166 (150-375) k/mm3 MPV 10.2 (7.4-10.4) fl Immature Gran % (Auto) 0.8 H (0-0.5) % Neut % (Auto) 74.6 H (45.5-73.1) % Lymph % (Auto) 11.1 L (18.3-44.2) % Cass % (Auto) 12.9 H (2.6-8.5) % Eos % (Auto) 0.5 (0-4.4) % Baso % (Auto) 0.1 L (0.2-1.2) % Lymph # (Auto) 0.93 (0.9-3.2) K/mm3 Cass # (Auto) 1.1 H (0.1-0.6) K/mm3 Eos # (Auto) 0.0 (0-0.3) K/mm3 Baso # (Auto) 0.0 (0.0-0.1) K/mm3 Abs Immat Gran (auto) 0.07 H (0.00-0.031) K/mm3 Absolute Neuts (auto) 6.2 (1.3-6.7) K/mm3 Absolute Nucleated RBC 0.000 (0.0-0.012) K/mm3 Nucleated RBC % 0.0 (0.0-0.2) % ESR 113 H (0-20) mm/hr PT 14.1 (11.1-14.7) Seconds INR 1.1 APTT 25.2 (22.3-36.8) Seconds D-Dimer 0.53 H (<0.48) ug/mL Sodium 136 L (137-145) mmol/L Potassium 3.3 L (3.4-5.0) mmol/L Chloride 95 L (98-107) mmol/L Carbon Dioxide 29 (22-30) mmol/L Anion Gap 12 (4-12) mmol/L BUN 35 H (9-20) mg/dL Creatinine 8.98 H (0.7-1.3) mg/dL Estim Creat Clear Calc 9 ml/min Estimated GFR 6 L (59 - ) Glucose 109 (65-110) mg/dL POC Capillary Glucose 90 77 (65-105) mg/dl Lactic Acid 1.7 (0.7-2.0) mmol/L Calcium 8.8 (8.4-10.2) mg/dL Magnesium 1.2 L (1.6-2.3) mg/dL Total Bilirubin 0.4 (0.2-1.3) mg/dL AST 43 (17-59) U/L ALT 25 (6-50) U/L Alkaline Phosphatase 45 (38-126) U/L Troponin I 0.330 H* (0.000-0.034) ng/mL C-Reactive Protein 1.1 (<1.0) mg/dL NT-Pro-B Natriuret Pep 19123 H (19.9-100) pg/mL Total Protein 6.0 L (6.3-8.2) g/dL Albumin 3.2 L (3.5-5.1) g/dL <Sascha Bill MD - Last Filed: 07/25/24 07:08> Discharge Plan Discharge Clinical Impression: Elevated troponin Diabetic foot ulcer Qualifiers: Diabetic foot ulcer location: toe Diabetes mellitus type: type 2 Laterality: l eft Non-pressure ulcer stage: limited to breakdown of skin Qualified Code(s): E 11.621 - Type 2 diabetes mellitus with foot ulcer <Thais Rosales PA-C - Last Filed: 07/25/24 02:32> Patient Disposition: Still a Patient <Thais Rosales PA-C - Last Filed: 07/25/24 02:32> Condition: Stable <Thais Rosales PA-C - Last Filed: 07/25/24 02:32>
[2024-07-25] VITALS (14 sets, daily range): BP systolic 147–174; BP diastolic 71–86; PULSE 57–74; RESP 16–19; TEMP 36.2–36.5; O2SAT 97–98; BMI 40.7
[2024-07-25] MEDS: HYDROmorphone HCL INJ (*CRX) 2 MG/ML VIAL 0.5 MG IV PUSH ×4 (00:46→18:19)
[2024-07-25 00:56] LABS: Glucose Point of Care 77 mg/dl (65-105)
[2024-07-25] MEDS: CEFEPIME 2 GM/NS 50 ML 2 GM/50 ML BAG IVPB (01:51)
--- NOTE | 2024-07-25 01:53 | ECG_ITS ---
Test Date: 2024-07-25 02:02:27 Measurements Intervals [place] Rate: 64 P: 68 [place]: 168 QRS: -68 QRSD: 137 T: 32 QT: 466 QTc: 483 Interpretive Statements SINUS RHYTHM RIGHT BUNDLE BRANCH BLOCK LEFT ANTERIOR FASCICULAR BLOCK CANNOT R/O SEPTAL INFARCT, AGE INDETERMINATE BASELINE ARTIFACT- I, III, AVL ABNORMAL ECG Compared to ECG 07/24/2024 21:46:57 No significant changes Electronically Signed On 07-25-2024 07:22:48 CDT by Dilan Preciado D.O.
[2024-07-25] MEDS: metroNIDAZOLE 500 MG/ISO 100ML 500 MG/100 ML BAG 100 MG IVPB ×3 (03:22→20:55)
--- NOTE | 2024-07-25 04:15 | PC.NURSE ---
PATIENT ARRIVED ON [facility] AT 0300
[2024-07-25] MEDS: VANCOMYCIN 2,000 MG/NS 500 ML 2,000 MG/500 ML BAG 125 MG IVPB (04:26)
[2024-07-25 08:18] LABS: Glucose Point of Care 103 mg/dl (65-105)
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
--- NOTE | 2024-07-25 09:47 | P.PNCROSS_ITS ---
Event Note Event Note Event Note: Patient is on peritoneal dialysis. Tolerating it well. He was seen at 8:45 a. m.
--- NOTE | 2024-07-25 10:38 | PM.IMHP ---
H&P: HPI History of Present Illness Date/Time: 07/25/24 10:38 Chief Complaint: left foot pain Narrative: 69 y.o male with PMH/o ESRD on peritoneal dialysis, insulin-dependent type 2 diabetes, hypothyroidism, CAD, hyperlipidemia,diastolic CHF, stents x LAD, history of kidney stones, BPH, obstructive sleep apnea, renal cell carcinoma status post partial left nephrectomy, admitted from ED for c/o left foot pain. He had left great toenails removed per lab tester few months ago and it was not healing well ever since. He had been complaint with his f/us with lab tester. In the last few days prior to his admisstion, reddness and pain increased to the point where he went to ED. He reported swelling to left leg and supposed ot have Doppler done in the upcoming next few days. He denies history of VTE, hemoptysis, cough or congestion, chest pain or abdominal pain, fever. He reports shortness of breath, worse with exertion. No orthopnea. He is on peritoneal dialysis, he does not make any urine in ED:CBC without leukocytosis. Hemoglobin is 9.4 which is similar to prior. Chemistries with mild hypokalemia of 3.3 which is been orally repleted. Magnesium also low at 1.2 which is been intravenously repleted. Creatinine consistent with ESRD. [place] [address]. Chest x-ray shows hypoinflation, otherwise no acute findings. EKG with normal sinus rhythm, normal CT interval, prolonged QRS duration of 133, right bundle-branch block, no acute ischemic changes. Troponin is elevated to 0.330. Trending up- cardiology consulted. D-dimer mildly elevated at 0.53, VTE unlikely when age adjusted. Foot x-ray shows no acute osseous abnormality. No evidence of osteomyelitis. CRP is within normal limits. Pt was started on cefepime 1 gm q24h, flagyl 500 mg q8h, vanc Review of Systems Review of Systems: All systems reviewed & are unremarkable except as noted in HPI and below (h/p) [facility] Past Medical History Medical History Chronic diarrhea Family history of colon cancer in father Chronic ethmoidal sinusitis Nasal congestion Bilateral impacted cerumen Allergic rhinitis Chronic sinusitis Chronic recurrent sinusitis Hypertensive CHF C. difficile colitis Arthritis Kidney stones Benign prostatic hyperplasia Coronary artery disease End-stage renal disease on peritoneal dialysis Obstructive sleep apnea Insulin dependent type 2 diabetes mellitus Renal cell carcinoma Status post partial left nephrectomy. Dyslipidemia Clostridium difficile infection Gastroesophageal reflux disease Depression with anxiety Hypothyroidism Cirrhosis Pituitary tumor Status post resection. Anemia Chronic diastolic (congestive) heart failure Hypertension Surgical History Surgical History History of open reduction and internal fixation (ORIF) procedure (11/2022) Screw fixation of sternal fracture. History of colonoscopy with polypectomy History of umbilical hernia repair History of inguinal hernia repair History of coronary artery stent placement History of cardiac catheterization (08/2020) Stent x2 to the LAD. History of arthroplasty of right knee History of cataract extraction History of pituitary surgery (11/2021) History of partial nephrectomy Partial left nephrectomy for renal cell carcinoma. History of cholecystectomy (2007) Family History Family History Mother Aneurysm Hypertension Cerebrovascular accident Heart murmur Father Carcinoma of colon Social History Social History Social History: Surrogate medical decision maker: Harriet Carl, spouse. Code status: Full code. Smoking status: Never smoker Second hand tobacco smoke exposure: No Alcohol intake: never Alcohol use details: rare, holidays Substance use: never Substance use type: does not use Do You Feel Safe in your Home?: Yes Lack of Transportation: No Lack of Food: Never True Current Housing: I Have Housing Concerned About Future Housing: No Difficulty Paying Gas/Electric Bills: No Difficulty Paying for Meds: No Currently Unemployed: No Education: Trade/Vocational Certificate Difficulty w/ Childcare or Family Care: No Living arrangements: with family Additional living arrangements comments: Lives with spouse in [place]. Occupation/Education: retired Additional occupation/education comments: [email or web address]. Spiritual care concerns: No Agree to blood products: Yes Meds Home Medications and Allergies Home Medications ?Medication ?Instructions ?Recorded ?Confirmed ?Type aspirin 81 mg tablet,delayed 81 mg PO HS 02/01/19 07/25/24 History release (Sami Low Dose Aspirin) vit C 250 mg-vit E 200 unit-zinc 1 tablet PO Q12H 02/01/19 07/25/24 History 12.5 mg-copper 1 [id number] tablet (ICaps AREDS2 (copper citrate)) cholecalciferol (vitamin D3) 125 125 mcg PO DAILY 10/01/22 07/25/24 History mcg (5,000 unit) tablet (Vitamin D3) atorvastatin 80 mg tablet 80 mg PO HS 09/02/23 07/25/24 History folic acid 0.8 mg-vit B comp with 800 tablet PO DAILY 04/03/24 07/25/24 History [id number] D3 2,000 unit tablet (Dialyvite 800-Ultra D) insulin aspart U-100 100 unit/mL 1 sliding scale dose subcut TID 04/03/24 07/25/24 History (3 mL) subcutaneous pen (Novolog FlexPen U-100 Insulin aspart) insulin glargine 100 unit/mL (3 35 unit subcut HS 04/03/24 07/25/24 History mL) subcutaneous pen (Basaglar KwikPen U-100 Insulin) levothyroxine 112 mcg tablet 112 mcg PO DAILY #90 tabs 04/15/24 07/25/24 Rx lorazepam 0.5 mg tablet (Ativan) 0.5 mg PO DAILY PRN Anxiety #30 04/15/24 07/25/24 Rx tabs furosemide 80 mg tablet 80 mg PO BID 04/21/24 07/25/24 History lisinopril 20 mg tablet 20 mg PO BID 04/21/24 07/25/24 History blood-glucose transmitter (Dexcom 04/23/24 07/25/24 History G6 Transmitter device) carvedilol 25 mg tablet 25 mg PO BID 06/17/24 07/25/24 History diltiazem HCl 120 mg 120 mg PO BID 06/17/24 07/25/24 History capsule,extended release 12 hr tamsulosin 0.4 mg capsule 0.4 mg PO HS 06/17/24 07/25/24 History lipase 60,000-protease #3 Samples 07/07/24 07/25/24 Sample 189,600-amylase 252,600 unit capsule, delay rel (Zenpep) pantoprazole 40 mg tablet,delayed 40 mg PO QAM #30 tabs 07/07/24 07/25/24 Rx release clonidine 0.2 mg/24 hr weekly 1 patch topical WEEKLY 07/25/24 07/25/24 History transdermal patch clopidogrel 75 mg tablet 75 mg PO HS 07/25/24 07/25/24 History gabapentin 300 mg capsule 300 mg PO Q12H 07/25/24 07/25/24 History hydralazine 10 mg tablet 10 mg PO TID PRN hypertension 07/25/24 07/25/24 History Allergies Allergy/AdvReac Type Severity Reaction Status Date / Time oxycodone AdvReac Unknown Hallucinati Verified 07/25/24 03:18 ng Vital Signs Vital Signs - 24 hr 07/24/24 21:08 07/24/24 21:14 07/25/24 00:53 Temperature 97.5 F L 98.1 F Pulse Rate 70 69 66 Respiratory Rate 16 17 18 Blood Pressure 161/75 H 173/86 H Pulse Oximetry 99 98 98 Oxygen Delivery Room Air 07/25/24 03:03 07/25/24 04:00 07/25/24 06:26 Temperature 97.2 F L Pulse Rate 63 57 L Respiratory Rate 17 Blood Pressure 147/78 H Pulse Oximetry 98 Oxygen Delivery Room Air Exam Const: General: comfortable Resp: Effort & Inspection: normal respiratory effort Auscultation: clear to auscultation bilaterally Cardio: Rate: regular rate Rhythm: regular rhythm GI: GI Palp: Yes Soft to palpation Auscultation: normal bowel sounds Skin: Other: LLE Warmth and erythema to the great toe Stage II ulcer to the medial aspect of the left great toe with moist base. pulses marked and easily dopplered, extremities are pink, warm and dry. H&P: Results Labs Labs: Short CBC 07/24/24 Range/Units 22:13 WBC 8.4 (4.5-10.0) K/mm3 Hgb 9.4 L (14.0-18.0) g/dL Hct 30.6 L (42.0-52.0) % Plt Count 166 (150-375) k/mm3 BMP 07/24/24 22:13 Sodium 136 L Potassium 3.3 L Chloride 95 L Carbon Dioxide 29 BUN 35 H Creatinine 8.98 H Glucose 109 Calcium 8.8 Cardiac Enzymes 07/24/24 07/25/24 Range/Units 22:13 05:50 Troponin I 0.330 H* 0.370 H* (0.000-0.034) ng/mL Liver Function 07/24/24 Range/Units 22:13 Total Bilirubin 0.4 (0.2-1.3) mg/dL AST 43 (17-59) U/L ALT 25 (6-50) U/L Alkaline Phosphatase 45 (38-126) U/L Albumin 3.2 L (3.5-5.1) g/dL Assessment and Plan Assessment and plan (1) Cellulitis: Code(s): L03.90 - Cellulitis, unspecified Status: Acute (2) Chronic diastolic (congestive) heart failure: Code(s): I50.32 - Chronic diastolic (congestive) heart failure Status: Chronic (3) Elevated troponin: Code(s): R79.89 - Other specified abnormal findings of blood chemistry Status: Acute (4) CAD (coronary artery disease): Code(s): I25.10 - Atherosclerotic heart disease of [place] coronary artery without angina pectoris Status: Acute (5) Hyperlipemia: Code(s): E78.5 - Hyperlipidemia, unspecified Status: Acute (6) Insulin dependent type 2 diabetes mellitus: Code(s): E11.9 - Type 2 diabetes mellitus without complications; Z79.4 - intermodal customer service (current) use of insulin Status: Acute (7) Cirrhosis: Code(s): K74.60 - Unspecified cirrhosis of liver Status: Acute (8) Gastroesophageal reflux disease: Code(s): K21.9 - Gastro-esophageal reflux disease without esophagitis Status: Acute (9) BPPV (benign paroxysmal positional vertigo): Code(s): H81.10 - Benign paroxysmal vertigo, unspecified ear Status: Acute (10) End-stage renal disease on peritoneal dialysis: Code(s): N18.6 - End stage renal disease; Z99.2 - Dependence on renal dialysis Status: Chronic (11) Anemia: Code(s): D64.9 - Anemia, unspecified Status: Chronic (12) SHABNAM (obstructive sleep apnea): Code(s): G47.33 - Obstructive sleep apnea (adult) (pediatric) Status: Acute Plan 69 y.o male with PMH/o ESRD on peritoneal dialysis, insulin-dependent type 2 diabetes, hypothyroidism, CAD, hyperlipidemia,diastolic CHF, stents x LAD, history of kidney stones, BPH, obstructive sleep apnea, renal cell carcinoma status post partial left nephrectomy, admitted from ED for c/o left foot pain. He had left great toenails removed per lab tester few months ago and it was not healing well ever since. He had been complaint with his f/us with lab tester. In the last few days prior to his admisstion, reddness and pain increased to the point where he went to ED. He reported swelling to left leg and supposed ot have Doppler done in the upcoming next few days. He denies history of VTE, hemoptysis, cough or congestion, chest pain or abdominal pain, fever. He reports shortness of breath, worse with exertion. No orthopnea. He is on peritoneal dialysis, he does not make any urine in ED:CBC without leukocytosis. Hemoglobin is 9.4 which is similar to prior. Chemistries with mild hypokalemia of 3.3 which is been orally repleted. Magnesium also low at 1.2 which is been intravenously repleted. Creatinine consistent with ESRD. [place] [address]. Chest x-ray shows hypoinflation, otherwise no acute findings. EKG with normal sinus rhythm, normal CT interval, prolonged QRS duration of 133, right bundle-branch block, no acute ischemic changes. Troponin is elevated to 0.330. Trending up- cardiology consulted. D-dimer mildly elevated at 0.53, VTE unlikely when age adjusted. Foot x-ray shows no acute osseous abnormality. No evidence of osteomyelitis. CRP is within normal limits. Pt was started on cefepime 1 gm q24h, flagyl 500 mg q8h, vanc BC collected-pending. -will add SS, hypoglycemia protocol, accuchecks ac/hs - nephrology following - cardiology consulted - heparin added for DVT prophylaxis - Doppler ultrasound ordered -as he was scheduled for it for tomorrow to r/u dvt pt is full code home meds reviewed and restarted as appropriate Quality VTE Prophylaxis VTE prophylaxis: pharmacologic ordered Hospitalist MIPS Advance Care Plan I have confirmed that the patient's Advanced Care Plan is present, code status is documented, or surrogate decision maker is listed in patient medical record.: Yes Medication Reconciliation I have utilized all available resources to obtain, update and review the patients current medications (includes all prescriptions, OTC, herbals, cannabis, and nutritional supplements).: Yes
--- NOTE | 2024-07-25 11:13 | PM.CNCAR ---
Assessment and Plan Assessment and plan (1) Cellulitis: Code(s): L03.90 - Cellulitis, unspecified Status: Acute Plan -cellulitis left foot with nonhealing ulcer -troponin elevation -history of LAD stents [address] [facility]. Recent abnormal stress test at [facility] that was done for renal transplant workup. -esrd on peritoneal dialysis. -history of hypertension -history of diabetes -history of hyperlipidemia -regards to cellulitis and poor wound healing of the left foot, order TWYLA to assess circulation. Continue antibiotic per primary team. Wound care consult. -in regards to elevated brain atretic peptide, this is secondary to chronic kidney disease. Elevated brain natriuretic peptide in chronic kidney disease is unreliable marker for CHF. Clinically patient does not appear to be in CHF exacerbation. Continue Dialysis to optimize volume status -in regards to elevated troponins, patient denies chest pain. He reports a recent abnormal stress test at [facility] and he scheduled for cardiac catheterization this coming Friday. 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 Denies anginal symptoms at this time. -regards to chronic kidney disease continue peritoneal dialysis. -regards to hypertension, continue home medications of carvedilol, diltiazem, lisinopril -regressed hyperlipidemia continue statin History of Present Illness History of Present Illness Consult date/time: 07/25/24 11:13 Requesting physician: Izabela Briscoe APRN Consult reason: Other (Elevated troponins and brain natriuretic peptide) Reason For Visit: Diabetic foot ulcer Narrative: This is a 69-year-old patient with history of ESRD on peritoneal dialysis, insulin-dependent type 2 diabetes, hypothyroidism, CAD with previous LAD stent at [facility] 2020, hyperlipidemia,diastolic CHF, stents x LAD, history of kidney stones, BPH, obstructive sleep apnea, renal cell carcinoma status post partial left nephrectomy. Presents here with left foot pain. Apparently last month he had his toenail removed and since then started to get more erythema, swelling and pain. Patient stated also that he is being worked up for kidney transplant and recently had stress test which is abnormal. He is scheduled to undergo cardiac catheterization at [facility] this coming Friday. Denies chest pain. The shortness of breath. He has some lower extremity edema today as he did not get dialysis yet. EKG visualized by myself shows sinus rhythm, right bundle branch block, left anterior fascicular block, poor R-wave progression. Chest x-ray reviewed and asthma since his clear. Potassium 3.3, troponin 0.33, 0.37. Platelet count 169. Normal white cell count. X-ray of the foot shows no osteomyelitis. Review of Systems Constitutional: Constitutional: Reports fatigue Eyes: Eyes: Denies blurry vision ENT: Reports Normal hearing present Cardiovascular: Cardiovascular: Denies chest pain and Reports pedal edema Respiratory: Respiratory: Denies cough Gastrointestinal: Gastrointestinal: Denies abdominal pain Genitourinary: Genitourinary: Denies flank pain Musculoskeletal: Musculoskeletal: Denies myalgias Integumentary/Breasts: Skin/Breast: Reports erythema Neurologic: Denies Abnormal speech present Psychiatric: Psychiatric: Denies anxiety Endocrine: Endocrine: Reports fatigue Hematologic/Lymphatic: Hematologic/Lymphatic: Denies easy bruising Allergic/Immunologic: Allergic/Immunologic: Denies lip swelling PMFSH Past Medical History Medical History Chronic diarrhea Family history of colon cancer in father Chronic ethmoidal sinusitis Nasal congestion Bilateral impacted cerumen Allergic rhinitis Chronic sinusitis Chronic recurrent sinusitis Hypertensive CHF C. difficile colitis Arthritis Kidney stones Benign prostatic hyperplasia Coronary artery disease End-stage renal disease on peritoneal dialysis Obstructive sleep apnea Insulin dependent type 2 diabetes mellitus Renal cell carcinoma Status post partial left nephrectomy. Dyslipidemia Clostridium difficile infection Gastroesophageal reflux disease Depression with anxiety Hypothyroidism Cirrhosis Pituitary tumor Status post resection. Anemia Chronic diastolic (congestive) heart failure Hypertension Surgical History Surgical History History of open reduction and internal fixation (ORIF) procedure (11/2022) Screw fixation of sternal fracture. History of colonoscopy with polypectomy History of umbilical hernia repair History of inguinal hernia repair History of coronary artery stent placement History of cardiac catheterization (08/2020) Stent x2 to the LAD. History of arthroplasty of right knee History of cataract extraction History of pituitary surgery (11/2021) History of partial nephrectomy Partial left nephrectomy for renal cell carcinoma. History of cholecystectomy (2007) Family History Family History Mother Aneurysm Hypertension Cerebrovascular accident Heart murmur Father Carcinoma of colon Social History Social History Social History: Surrogate medical decision maker: Harriet Carl, spouse. Code status: Full code. Smoking status: Never smoker Second hand tobacco smoke exposure: No Alcohol intake: never Alcohol use details: rare, holidays Substance use: never Substance use type: does not use Do You Feel Safe in your Home?: Yes Lack of Transportation: No Lack of Food: Never True Current Housing: I Have Housing Concerned About Future Housing: No Difficulty Paying Gas/Electric Bills: No Difficulty Paying for Meds: No Currently Unemployed: No Education: Trade/Vocational Certificate Difficulty w/ Childcare or Family Care: No Living arrangements: with family Additional living arrangements comments: Lives with spouse in [place]. Occupation/Education: retired Additional occupation/education comments: [employer]. Spiritual care concerns: No Agree to blood products: Yes Meds Home Medications and Allergies Home Medications ?Medication ?Instructions ?Recorded ?Confirmed ?Type aspirin 81 mg tablet,delayed 81 mg PO HS 02/01/19 07/25/24 History release (Sami Low Dose Aspirin) vit C 250 mg-vit E 200 unit-zinc 1 tablet PO Q12H 02/01/19 07/25/24 History 12.5 mg-copper 1 eq-dim-fpccxu tablet (ICaps AREDS2 (copper citrate)) cholecalciferol (vitamin D3) 125 125 mcg PO DAILY 10/01/22 07/25/24 History mcg (5,000 unit) tablet (Vitamin D3) atorvastatin 80 mg tablet 80 mg PO HS 09/02/23 07/25/24 History folic acid 0.8 mg-vit B comp with 800 tablet PO DAILY 04/03/24 07/25/24 History N-ghfl-tzwlwzw D3 2,000 unit tablet (Dialyvite 800-Ultra D) insulin aspart U-100 100 unit/mL 1 sliding scale dose subcut TID 04/03/24 07/25/24 History (3 mL) subcutaneous pen (Novolog FlexPen U-100 Insulin aspart) insulin glargine 100 unit/mL (3 35 unit subcut HS 04/03/24 07/25/24 History mL) subcutaneous pen (Basaglar KwikPen U-100 Insulin) levothyroxine 112 mcg tablet 112 mcg PO DAILY #90 tabs 04/15/24 07/25/24 Rx lorazepam 0.5 mg tablet (Ativan) 0.5 mg PO DAILY PRN Anxiety #30 04/15/24 07/25/24 Rx tabs furosemide 80 mg tablet 80 mg PO BID 04/21/24 07/25/24 History lisinopril 20 mg tablet 20 mg PO BID 04/21/24 07/25/24 History blood-glucose transmitter (Dexcom 04/23/24 07/25/24 History G6 Transmitter device) carvedilol 25 mg tablet 25 mg PO BID 06/17/24 07/25/24 History diltiazem HCl 120 mg 120 mg PO BID 06/17/24 07/25/24 History capsule,extended release 12 hr tamsulosin 0.4 mg capsule 0.4 mg PO HS 06/17/24 07/25/24 History lipase 60,000-protease #3 Samples 07/07/24 07/25/24 Sample 189,600-amylase 252,600 unit capsule, delay rel (Zenpep) pantoprazole 40 mg tablet,delayed 40 mg PO QAM #30 tabs 07/07/24 07/25/24 Rx release clonidine 0.2 mg/24 hr weekly 1 patch topical WEEKLY 07/25/24 07/25/24 History transdermal patch clopidogrel 75 mg tablet 75 mg PO HS 07/25/24 07/25/24 History gabapentin 300 mg capsule 300 mg PO Q12H 07/25/24 07/25/24 History hydralazine 10 mg tablet 10 mg PO TID PRN hypertension 07/25/24 07/25/24 History Allergies Allergy/AdvReac Type Severity Reaction Status Date / Time oxycodone AdvReac Unknown Hallucinati Verified 07/25/24 03:18 ng Vital Signs Vital Signs - 24 hr 07/24/24 21:08 07/24/24 21:14 07/25/24 00:53 Temperature 36.4 C L 36.7 C Pulse Rate 70 69 66 Respiratory Rate 16 17 18 Blood Pressure 161/75 H 173/86 H Pulse Oximetry 99 98 98 Oxygen Delivery Room Air 07/25/24 03:03 07/25/24 04:00 07/25/24 06:26 Temperature 36.2 C L Pulse Rate 63 57 L Respiratory Rate 17 Blood Pressure 147/78 H Pulse Oximetry 98 Oxygen Delivery Room Air Exam Const: General: no acute distress HENMT: Face/Nose/Sinus: no epistaxis Eyes: Sclera: sclerae normal Neck: Neck: supple Resp: Auscultation: diminished lung sounds Cardio: Heart sounds: no murmurs GI: GI Palp: No Tenderness to palpation present (GI) Skin: Wounds: wounds noted Neuro: Speech: normal speech Extrem: General: pedal edema Psych: Affect: normal affect Results Labs and Meds 07/24/24 22:13 07/24/24 22:13 Lab results: Cardiac Enzymes 07/24/24 07/25/24 Range/Units 22:13 05:50 AST 43 (17-59) U/L Troponin I 0.330 H* 0.370 H* (0.000-0.034) ng/mL Coagulation 07/24/24 Range/Units 22:13 PT 14.1 (11.1-14.7) Seconds APTT 25.2 (22.3-36.8) Seconds CBC 07/24/24 Range/Units 22:13 WBC 8.4 (4.5-10.0) K/mm3 RBC 3.18 L (4.6-6.20) M/mm3 Hgb 9.4 L (14.0-18.0) g/dL Hct 30.6 L (42.0-52.0) % Plt Count 166 (150-375) k/mm3 Lymph # (Auto) 0.93 (0.9-3.2) K/mm3 [place] # (Auto) 1.1 H (0.1-0.6) K/mm3 Eos # (Auto) 0.0 (0-0.3) K/mm3 Baso # (Auto) 0.0 (0.0-0.1) K/mm3 Comprehensive Metabolic Panel 07/24/24 Range/Units 22:13 Sodium 136 L (137-145) mmol/L Potassium 3.3 L (3.4-5.0) mmol/L Chloride 95 L (98-107) mmol/L Carbon Dioxide 29 (22-30) mmol/L BUN 35 H (9-20) mg/dL Creatinine 8.98 H (0.7-1.3) mg/dL Glucose 109 (65-110) mg/dL Calcium 8.8 (8.4-10.2) mg/dL AST 43 (17-59) U/L ALT 25 (6-50) U/L Alkaline Phosphatase 45 (38-126) U/L Total Protein 6.0 L (6.3-8.2) g/dL Albumin 3.2 L (3.5-5.1) g/dL Intake and Output 07/24/24 07/25/24 07/25/24 23:59 07:59 15:59 Intake Total 100 120 Balance 100 120 Intake: IV 100 Cefepime 2 gm/Ns 50 ml 2 gm In 50 50 ml @ 100 mls/hr IVPB ONCE STA Rx#:[id number] Magnesium Sulf 2 gm/Water 50Ml 50 2 gm In 50 ml @ 25 mls/hr IVPB ONCE ONE Rx#:[id number] Oral 120 Other: # Unmeasured Voids 0 1 Patient Weight 07/25/24 23:59 Weight 121.6 kg
[2024-07-25] MEDS: PANTOPRAZOLE 40 MG TABLET PO (11:39)
[2024-07-25] MEDS: OPTI-GEN TAB 1 TABLET PO ×2 (11:39→20:55)
[2024-07-25] MEDS: GABAPENTIN 300 MG CAPSULE PO ×2 (11:39→20:54)
[2024-07-25] MEDS: VITAMIN B CMPLX/VIT C/FOLIC AC 1 CAPSULE 1 CAP PO (11:40)
[2024-07-25] MEDS: FUROSEMIDE 80 MG TABLET PO ×2 (11:40→18:00)
[2024-07-25] MEDS: lisinopriL 20 MG TABLET PO ×2 (11:40→20:55)
[2024-07-25] MEDS: LEVOTHYROXINE SODIUM 112 MCG TABLET PO (11:42)
[2024-07-25 11:59] LABS: Glucose Point of Care 109 mg/dl (65-105)
[2024-07-25] MEDS: HEPARIN SODIUM 5,000 UNITS/ML VIAL 5000 UNITS SUB-Q ×2 (13:15→20:55)
[2024-07-25 17:20] LABS: Glucose Point of Care 164 mg/dl (65-105)
[2024-07-25] MEDS: carvediloL 25 MG TABLET PO (18:00)
[2024-07-25 20:04] LABS: Glucose Point of Care 222 mg/dl (65-105)
[2024-07-25] MEDS: CLOPIDOGREL BISULFATE 75 MG TABLET PO (20:54)
[2024-07-25] MEDS: ATORVASTATIN 40 MG TABLET 80 MG PO (20:54)
[2024-07-25] MEDS: dilTIAZem HCL 12 HR 60 MG CAP.12HR 120 MG PO (20:54)
[2024-07-25] MEDS: ASPIRIN 81 MG ENTERIC TABLET PO (20:54)
[2024-07-25] MEDS: TAMSULOSIN HCL 0.4 MG CAPSULE PO (20:55)
[2024-07-25] MEDS: INSULIN GLARGINE (*BKC) 100 UNITS/ML 20 UNITS SUB-Q (20:56)
[2024-07-25] MEDS: INSULIN ASPART (*BKC) 100 UNITS/ML SUB-Q (21:07)
[2024-07-26] VITALS (14 sets, daily range): BP systolic 146–167; BP diastolic 56–70; PULSE 60–70; RESP 12–20; TEMP 36.1–36.3; O2SAT 93–98
--- NOTE | 2024-07-26 | ECHO_ITS ---
Patient Info Name: Kendall Carl Age: 69 years : 1955 Gender: Male Ht: 68 in Wt: 268 lbs BSA: 2.47 m2 HR: 95 bpm BP: 159 / 70 mmHg Heart Rhythm: Sinus Rhythm Technical Quality: Fair Exam Date: 07/26/2024 2:43 PM Patient Status: I Admit Date: 07/26/2024 Exam Type: CA echo dop color flow w con Complete two-dimensional, color flow and Doppler transthoracic echocardiogram is performed with contrast to opacify the left ventricle and to improve the deliniation of the left ventricle endocardial borders. Staff Referring Physician: Orlando Spencer MD Optical Instrument Assembler: Traci Price Attending Provider: Krystal Johnson DO Contrast/Agitated Saline Contrast/Ag. Saline: Definity Amount: 2.00 ml Administered By: Traci Price Existing IV Access: Yes IV Access Condition: patent with no signs of infiltration Summary 1. Left ventricular chamber dimension is normal. 2. Left ventricular systolic function is normal, estimated at 60-65. 3. There is mildly increased left ventricular wall thickness. 4. The left ventricular diastolic function is grade I diastolic dysfunction. 5. Right ventricular systolic function is normal. 6. Left atrial chamber dimension is moderately enlarged. 7. There is mild tricuspid valve regurgitation. Left Ventricle Left ventricular chamber dimension is normal. Left ventricular systolic function is normal, estimated at 60-65. There is mildly increased left ventricular wall thickness. The left ventricular diastolic function is grade I diastolic dysfunction. Right Ventricle Right ventricular chamber dimension is normal. Right ventricular systolic function is normal. Left Atria Left atrial chamber dimension is moderately enlarged. Right Atria Right atrial chamber dimension is normal. Atrial Septum Intact interatrial septum visualized by color flow imaging. Aortic Valve The aortic valve is probable trileaflet. There is no aortic valve stenosis. There is no aortic valve regurgitation. There is mild aortic valve calcification. Pulmonic Valve The pulmonic valve is not well visualized. There is trace pulmonic regurgitation. Mitral Valve There is trace mitral valve regurgitation. Tricuspid Valve There is mild tricuspid valve regurgitation. Pericardium/Pleural There is no pericardial effusion. Inferior Vena Cava Dilated inferior vena cava with <50% collapse upon inspiration consistent with elevated right atrial pressure, 15 mmHg. Aorta The aortic root size at the sinus of Valsalva is normal. Left Ventricular Outflow Tract Name Value Normal LVOT 2D LVOT Diameter 2.1 cm LVOT Doppler LVOT Peak Velocity 122 cm/s LVOT Peak Gradient 6 mmHg LVOT Mean Gradient 3 mmHg LVOT VTI 27 cm LVOT VTI/AV VTI Ratio 0.7 LVOT Stroke Volume 93 ml LVOT CO 5.7 l/min LVOT CI 2.3 l/min/m2 Pulmonic Valve Name Value Normal RVOT Doppler RVOT Peak Velocity 85 cm/s RVOT Peak Gradient 3 mmHg PV Doppler PV Peak Velocity 121 cm/s PV Peak Gradient 6 mmHg Mitral Valve Name Value Normal MV Diastolic Function MV E Peak Velocity 120 cm/s MV A Peak Velocity 88 cm/s MV E/A 1.4 MV Decel Time (PW) 242 ms MV Annular TDI MV E/e' (Septal) 24.4 MV E/e' (Lateral) 23.7 MV E/e' (Average) 24.1 Tricuspid Valve Name Value Normal TV Regurgitation Doppler TR Peak Velocity 209 cm/s TR Peak Gradient 14 mmHg Estimated PAP/RSVP RA Pressure 15 mmHg <=5 PA Systolic Pressure 33 mmHg <36 RV Systolic Pressure 33 mmHg <36 TV Annular TDI TV Lateral Ada s' Velocity 9.6 cm/s >=9.5 Aorta Name Value Normal Ascending Aorta Ao Root Diameter (MM) 3.9 cm Ao Root Diam Index (MM) 1.6 cm/m2 Aortic Valve Name Value Normal AV Doppler AV Peak Velocity 181 cm/s AV Peak Gradient 13 mmHg AV Mean Gradient 6 mmHg AV VTI 39 cm AV Area (Cont Eq VTI) 2.4 cm2 >=3.0 AV Area (Cont Eq Darius) 2.3 cm2 AV DI (Darius) 0.67 AV Regurgitation 2D LVOT Area 3.5 cm2 Ventricles Name Value Normal LV Dimensions 2D/MM IVS Diastolic Thickness (2D) 1.4 cm 0.6-1.0 LVID Diastole (2D) 4.4 cm 4.2-5.8 LVIW Diastolic Thickness (2D) 1.2 cm 0.6-1.0 LVID Systole (2D) 2.4 cm 2.5-4.0 LVOT Diameter 2.1 cm LV Mass (2D Cubed) 211.08 g 88.00-224.00 LV Mass Index (2D Cubed) 85 g/m2 49-115 Relative Wall Thickness (2D) 0.54 <=0.42 LV Fractional Shortening/Ejection Fraction 2D/MM LV Fractional Shortening (2D) 46 % 25-43 LV EF (2D Teichholz) 77 % LV Diastolic Volume (4C MOD) 103 ml LV EF (4C MOD) 76 % LV Diastolic Volume (2C MOD) 83 ml LV EF (2C MOD) 72 % LV Diastolic Volume (BP MOD) 94 ml 62-150 LV Diastolic Volume Index (BP MOD) 38 ml/m2 34-74 LV Systolic Volume (BP MOD) 25 ml 21-61 LV Systolic Volume Index (BP MOD) 10 ml/m2 11-31 LV EF (BP MOD) 74 % 52-72 LV Diastolic Length (4C) 9.4 cm LV Systolic Length (4C) 7.9 cm LV Stroke Volume (4C MOD) 79 ml Atria Name Value Normal LA Dimensions LA Dimension (MM) 4.2 cm 3.0-4.0 LA Volume (4C A-L) 89 ml LA Volume (BP A-L) 86 ml RA Dimensions RA Area (4C) 11.1 cm2 <=18.0 Report Signatures
[2024-07-26] MEDS: HYDROmorphone HCL INJ (*CRX) 2 MG/ML VIAL 0.5 MG IV PUSH ×3 (00:36→15:46)
[2024-07-26] MEDS: CEFEPIME 1 GM/NS 50 ML 1 GM/50 ML BAG IVPB (01:59)
[2024-07-26] MEDS: HEPARIN SODIUM 5,000 UNITS/ML VIAL 5000 UNITS SUB-Q ×3 (05:42→20:31)
[2024-07-26] MEDS: LEVOTHYROXINE SODIUM 112 MCG TABLET PO (05:42)
[2024-07-26] MEDS: metroNIDAZOLE 500 MG/ISO 100ML 500 MG/100 ML BAG 100 MG IVPB (05:43)
[2024-07-26 06:29] LABS: Basophils Percent Auto 0.4 % (0.2-1.2); Eosinophils Absolute Auto 0.1 K/mm3 (0-0.3); Eosinophils Percent Auto 1.3 % (0-4.4); Hematocrit 30.2 % (42.0-52.0); Hemoglobin 9.2 g/dL (14.0-18.0); Immature Granulocyte Absolute 0.09 K/mm3 (0.00-0.031); Immature Granulocyte Percent A 1.3 % (0-0.5); Lymphocytes Absolute Auto 1.08 K/mm3 (0.9-3.2); Lymphocytes Percent Auto 15.4 % (18.3-44.2); Mean Corpuscular HGB Conc 30.5 g/dl (32-36); Mean Corpuscular Volume 98.4 fl (80-100); Mean Platelet Volume 10.7 fl (7.4-10.4); Monocytes Absolute Auto 0.9 K/mm3 (0.1-0.6); Monocytes Percent Auto 12.3 % (2.6-8.5); Neutrophils Absolute Auto 4.9 K/mm3 (1.3-6.7); Neutrophils Percent Auto 69.3 % (45.5-73.1); Platelet Count Result 201 k/mm3 (150-375); Red Blood Count 3.07 M/mm3 (4.6-6.20); Red Cell Distribution Width 15.7 % (11.5-14.5)
[2024-07-26 06:43] LABS: Albumin Level 3.3 g/dL (3.5-5.1); Anion Gap 13 mmol/L (4-12); Blood Urea Nitrogen 38 mg/dL (9-20); Calcium 8.5 mg/dL (8.4-10.2); Carbon Dioxide 27 mmol/L (22-30); Chloride 97 mmol/L (98-107); Estimated CRCL calculation 8 ml/min; Estimated Glomerular Filt Rate 5; Glucose 95 mg/dL (65-110); Potassium 3.2 mmol/L (3.4-5.0); Sodium 137 mmol/L (137-145)
[2024-07-26 07:37] LABS: Glucose Point of Care 82 mg/dl (65-105)
[2024-07-26] MEDS: PANTOPRAZOLE 40 MG TABLET PO (08:38)
[2024-07-26] MEDS: carvediloL 25 MG TABLET PO ×2 (08:38→16:22)
[2024-07-26] MEDS: lisinopriL 20 MG TABLET PO ×2 (08:38→20:24)
[2024-07-26] MEDS: dilTIAZem HCL 12 HR 60 MG CAP.12HR 120 MG PO ×2 (08:39→20:24)
[2024-07-26] MEDS: GABAPENTIN 300 MG CAPSULE PO ×2 (08:39→20:24)
[2024-07-26] MEDS: FUROSEMIDE 80 MG TABLET PO ×2 (08:39→16:22)
[2024-07-26] MEDS: OPTI-GEN TAB 1 TABLET PO ×2 (08:39→20:24)
[2024-07-26] MEDS: VITAMIN B CMPLX/VIT C/FOLIC AC 1 CAPSULE 1 CAP PO (08:39)
[2024-07-26 09:46] LABS: MRSA (PCR) NOT DETECTED (NOT DETECTE)
[2024-07-26 11:27] LABS: Glucose Point of Care 130 mg/dl (65-105)
[2024-07-26] MEDS: diphenhydrAMINE HCl CAP 25 MG CAPSULE PO (11:33)
[2024-07-26] MEDS: PERFLUTREN LIPID MICROSPHERES 1.5 ML VIAL DILUTED TO 10 ML TOTAL VOLUME IV PUSH (15:00)
--- NOTE | 2024-07-26 15:01 | PM.IMPN ---
Progress Note: A&P Assessment and Plan (1) Cellulitis: Code(s): L03.90 - Cellulitis, unspecified Status: Acute (2) Chronic diastolic (congestive) heart failure: Code(s): I50.32 - Chronic diastolic (congestive) heart failure Status: Chronic (3) Elevated troponin: Code(s): R79.89 - Other specified abnormal findings of blood chemistry Status: Acute (4) CAD (coronary artery disease): Code(s): I25.10 - Atherosclerotic heart disease of [place] coronary artery without angina pectoris Status: Acute (5) Hyperlipemia: Code(s): E78.5 - Hyperlipidemia, unspecified Status: Acute (6) Insulin dependent type 2 diabetes mellitus: Code(s): E11.9 - Type 2 diabetes mellitus without complications; Z79.4 - assisted (current) use of insulin Status: Acute (7) Cirrhosis: Code(s): K74.60 - Unspecified cirrhosis of liver Status: Acute (8) Gastroesophageal reflux disease: Code(s): K21.9 - Gastro-esophageal reflux disease without esophagitis Status: Acute (9) BPPV (benign paroxysmal positional vertigo): Code(s): H81.10 - Benign paroxysmal vertigo, unspecified ear Status: Acute (10) End-stage renal disease on peritoneal dialysis: Code(s): N18.6 - End stage renal disease; Z99.2 - Dependence on renal dialysis Status: Chronic (11) Anemia: Code(s): D64.9 - Anemia, unspecified Status: Chronic (12) SHABNAM (obstructive sleep apnea): Code(s): G47.33 - Obstructive sleep apnea (adult) (pediatric) Status: Acute Plan 69 y.o male with PMH/o ESRD on peritoneal dialysis, insulin-dependent type 2 diabetes, hypothyroidism, CAD, hyperlipidemia,diastolic CHF, stents x LAD, history of kidney stones, BPH, obstructive sleep apnea, renal cell carcinoma status post partial left nephrectomy, admitted from ED for c/o left foot pain. He had left great toenails removed per assistant health educator few months ago and it was not healing well ever since. He had been complaint with his f/us with assistant health educator. In the last few days prior to his admisstion, reddness and pain increased to the point where he went to ED. He reported swelling to left leg and supposed ot have Doppler done in the upcoming next few days. He denies history of VTE, hemoptysis, cough or congestion, chest pain or abdominal pain, fever. He reports shortness of breath, worse with exertion. No orthopnea. He is on peritoneal dialysis, he does not make any urine D-dimer mildly elevated at 0.53, VTE unlikely when age adjusted. Foot x-ray shows no acute osseous abnormality. No evidence of osteomyelitis. CRP is within normal limits. Pt was started on cefepime 1 gm q24h, flagyl 500 mg q8h, vanc BC collected-pending. -will add SS, hypoglycemia protocol, AccuCheck ac/hs - nephrology following - cardiology consulted - heparin added for DVT prophylaxis - Doppler ultrasound ordered -as he was scheduled for it for tomorrow to r/u dvt pt is full code home meds reviewed and restarted as appropriate 07/26 - stable from cardiac stand point, no chest pain - will need an outpt f/u for card cath - continue asa, plavix, statin - MRSA nasal swab neg. NO purulent drainage- will stop vanc - switched to Cefazolin 1 gm hs on 07/26 - bC prelim negative BC reviewed and stable - nephrology following for peritoneal dialysis mngmnt - mg was low when admitted- replaced- will recheck in am with morning labs - k 3.2- replaced- will recheck in am - BS reviewed and stable Time Spent With Patient Time with patient: 25 - 35 minutes Subjective Date/time seen: 07/26/24 15:01 Interval history: 69 y.o male with PMH/o ESRD on peritoneal dialysis, insulin-dependent type 2 diabetes, hypothyroidism, CAD, hyperlipidemia,diastolic CHF, stents x LAD, history of kidney stones, BPH, obstructive sleep apnea, renal cell carcinoma status post partial left nephrectomy, admitted from ED for c/o left foot pain. He had left great toenails removed per assistant health educator few months ago and it was not healing well ever since. He had been complaint with his f/us with assistant health educator. In the last few days prior to his admission, reddness and pain increased to the point where he went to ED. He reported swelling to left leg and supposed to have Doppler done in the upcoming next few days. He denies history of VTE, hemoptysis, cough or congestion, chest pain or abdominal pain, fever. He reports shortness of breath, worse with exertion. No orthopnea. He is on peritoneal dialysis, he does not make any urine. of note, he tried doxy outpt. 07/26 - resting in bed. Some redness and itchiness earlier to rt arm- for which he took benadryl and it helps. NO iv was running at that time, so unclear what was the etiology of itchiness and redness. He is feelig ok, no n/v/d. NO bm today/yesterday but doesnot want t take any miralax or any meds as of now. reddnes to lt foot is slightly better. no drainage. Review of Systems Review of Systems: All systems reviewed & are unremarkable except as noted in HPI and below (h/p) Exam Const: General: comfortable Resp: Effort & Inspection: normal respiratory effort Auscultation: clear to auscultation bilaterally Cardio: Rate: regular rate Rhythm: regular rhythm GI: Auscultation: normal bowel sounds Skin: Other: LLE Warmth and erythema to the great toe Stage II ulcer to the medial aspect of the left great toe with moist base. pulses marked and easily dopplered, extremities are pink, warm and dry. Objective Data Vital Signs Vital Signs: Vital Signs - 24 hr 07/25/24 16:00 07/25/24 16:10 07/25/24 18:00 Temperature 97.7 F Pulse Rate 72 74 Pulse Rate [Apical] 65 Respiratory Rate 16 Blood Pressure Blood Pressure [Right Arm] 159/71 H Pulse Oximetry Oxygen Delivery 07/25/24 20:00 07/25/24 20:00 07/25/24 21:19 Temperature Pulse Rate 65 62 Pulse Rate [Apical] Respiratory Rate 19 Blood Pressure Blood Pressure [Right Arm] Pulse Oximetry 97 97 Oxygen Delivery Room Air Room Air 07/25/24 21:34 07/25/24 23:15 07/26/24 00:00 Temperature 97.3 F L Pulse Rate 65 63 63 Pulse Rate [Apical] Respiratory Rate 19 Blood Pressure 174/80 H Blood Pressure [Right Arm] Pulse Oximetry 97 97 Oxygen Delivery CPAP 07/26/24 03:00 07/26/24 04:00 07/26/24 05:57 Temperature 97.0 F L Pulse Rate 60 62 65 Pulse Rate [Apical] Respiratory Rate 12 Blood Pressure 159/70 H Blood Pressure [Right Arm] Pulse Oximetry 96 93 Oxygen Delivery CPAP 07/26/24 08:03 07/26/24 08:38 07/26/24 08:39 Temperature Pulse Rate 62 70 Pulse Rate [Apical] Respiratory Rate 16 Blood Pressure Blood Pressure [Right Arm] Pulse Oximetry 93 Oxygen Delivery Room Air 07/26/24 12:28 07/26/24 14:00 Temperature 97.0 F L Pulse Rate 68 62 Pulse Rate [Apical] Respiratory Rate 18 Blood Pressure 146/56 H Blood Pressure [Right Arm] Pulse Oximetry 98 Oxygen Delivery Intake/Output Intake/Output: Intake & Output 07/23/24 07/24/24 07/25/24 07/26/24 23:59 23:59 23:59 23:59 Intake Total 760 1570 Output Total 1815 Balance 760 -245 Meds/Results Medications: Active Medications Generic Name Dose Route Start Last Admin Trade Name Freq PRN Reason Stop Dose Admin Aspirin 81 mg 07/25/24 21:00 07/25/24 20:54 Aspirin 81 Mg Enteric Tablet PO 81 mg HS JERMAINE Administration Atorvastatin Calcium 80 mg 07/25/24 21:00 07/25/24 20:54 Atorvastatin 40 Mg Tablet PO 80 mg HS JERMAINE Administration Carvedilol 25 mg 07/25/24 11:10 07/26/24 08:38 Carvedilol 25 Mg Tablet PO 25 mg BIDWM JERMAINE Administration Clopidogrel Bisulfate 75 mg 07/25/24 21:00 07/25/24 20:54 Clopidogrel Bisulfate 75 Mg Tablet PO 75 mg HS JERMAINE Administration Dextrose 12.5 gm 07/25/24 10:55 Dextrose 50% 25 Gm/50 Ml Syringe IV PUSH PRN PRN Hypoglycemia Protocol Diltiazem HCl 120 mg 07/25/24 11:15 07/26/24 08:39 Diltiazem Hcl 12 Hr 60 Mg Cap.12hr PO 120 mg Q12HR JERMAINE Administration Diphenhydramine HCl 25 mg 07/26/24 11:00 07/26/24 11:33 Diphenhydramine Hcl Cap 25 Mg Capsule PO 25 mg Q6H PRN Administration Itching Furosemide 80 mg 07/25/24 11:10 07/26/24 08:39 Furosemide 80 Mg Tablet PO 80 mg BID JERMAINE Administration Gabapentin 300 mg 07/25/24 11:00 07/26/24 08:39 Gabapentin 300 Mg Capsule PO 300 mg Q12HR JERMAINE Administration Glucagon 1 mg 07/25/24 10:55 Glucagon For Inj 1 Mg Vial IM PRN PRN Hypoglycemia Protocol Glucose 15 gm 07/25/24 10:55 Glucose Oral Gel 15 Gm Of Glucse In 37.5 Gm Tube PO PRN PRN Hypoglycemia Protocol Heparin Sodium (Porcine) 5,000 units 07/25/24 14:00 07/26/24 13:15 Heparin Sodium 5,000 Units/Ml Vial SUB-Q 5,000 units Q8HR JERMAINE Administration Hydromorphone HCl 0.5 mg 07/25/24 01:34 07/26/24 06:13 Hydromorphone Hcl Inj (*Crx) 2 Mg/Ml Vial IV PUSH 0.5 mg Q4H PRN Administration Pain Rated 7-10 Dextrose 1,000 mls @ 100 mls/hr 07/25/24 10:55 Dextrose 5% 1,000 Ml IVPB PRN PRN Hypoglycemia Protocol Cefazolin Sodium 1 gm in 50 mls @ 100 mls/hr 07/26/24 21:00 Ancef 1 Gm/Ns 50 Ml IVPB QHS JERMAINE Insulin Aspart 3 - 6 units 07/25/24 12:00 07/26/24 11:32 Insulin Aspart (*Bkc) 100 Units/Ml SUB-Q Not Given TIDWM [facility] Protocol Insulin Aspart 1 - 3 units 07/25/24 21:00 07/25/24 21:07 Insulin Aspart (*Bkc) 100 Units/Ml SUB-Q 3 units HS JERMAINE Administration Protocol Insulin Glargine 20 units 07/25/24 21:00 07/25/24 20:56 Insulin Glargine (*Bkc) 100 Units/Ml SUB-Q 20 units HS JERMAINE Administration Levothyroxine Sodium 112 mcg 07/25/24 11:10 07/26/24 05:42 Levothyroxine Sodium 112 Mcg Tablet PO 112 mcg DAILY@0630 JERMAINE Administration Lisinopril 20 mg 07/25/24 11:15 07/26/24 08:38 Lisinopril 20 Mg Tablet PO 20 mg Q12HR JERMAINE Administration Lorazepam 0.5 mg 07/25/24 10:56 Lorazepam (*Crx) 0.5 Mg Tablet PO DAILY PRN Anxiety Multivitamins/Minerals 1 tablet 07/25/24 11:15 07/26/24 08:39 Opti-Gen Tab PO 1 tablet Q12HR JERMAINE Administration Pantoprazole Sodium 40 mg 07/25/24 11:15 07/26/24 08:38 Pantoprazole 40 Mg Tablet PO 40 mg QAM JERMAINE Administration Perflutren Lipid Microsphere 0 ml 07/25/24 11:20 Perflutren Lipid Microspheres 1.5 Ml Vial Diluted To 10 Ml Total Volume IV PUSH 07/28/24 11:20 ONCE PRN adequate visualization Protocol Tamsulosin HCl 0.4 mg 07/25/24 21:00 07/25/24 20:55 Tamsulosin Hcl 0.4 Mg Capsule PO 0.4 mg HS JERMAINE Administration Vitamin B Complex/Folic Acid 1 cap 07/25/24 11:15 07/26/24 08:39 Vitamin B Cmplx/Vit C/Folic Ac 1 Capsule PO 1 cap QAM JERMAINE Administration Radiology Results: ITS Impressions Chest X-Ray 07/25/24 06:15 Impression: Clear lungs. Foot X-Ray 07/25/24 06:15 Impression: No radiographic evidence for osteomyelitis. Labs Labs: Laboratory Results - last 24 hr 07/25/24 07/25/24 07/26/24 17:17 19:33 05:41 WBC 7.0 RBC 3.07 L Hgb 9.2 L Hct 30.2 L MCV 98.4 MCH 30.0 MCHC 30.5 L RDW 15.7 H Plt Count 201 MPV 10.7 H Immature Gran % (Auto) 1.3 H Neut % (Auto) 69.3 Lymph % (Auto) 15.4 L [place] % (Auto) 12.3 H Eos % (Auto) 1.3 Baso % (Auto) 0.4 Lymph # (Auto) 1.08 [place] # (Auto) 0.9 H Eos # (Auto) 0.1 Baso # (Auto) 0.0 Abs Immat Gran (auto) 0.09 H Absolute Neuts (auto) 4.9 Absolute Nucleated RBC 0.000 Nucleated RBC % 0.0 Sodium 137 Potassium 3.2 L Chloride 97 L Carbon Dioxide 27 Anion Gap 13 H BUN 38 H Creatinine 9.91 H Estim Creat Clear Calc 8 Estimated GFR 5 L Glucose 95 POC Capillary Glucose 164 H 222 H Calcium 8.5 Phosphorus 7.0 H Albumin 3.3 L Nasal MRSA (PCR) 07/26/24 07/26/24 07/26/24 07:34 08:31 11:22 WBC RBC Hgb Hct MCV MCH MCHC RDW Plt Count MPV Immature Gran % (Auto) Neut % (Auto) Lymph % (Auto) [place] % (Auto) Eos % (Auto) Baso % (Auto) Lymph # (Auto) [place] # (Auto) Eos # (Auto) Baso # (Auto) Abs Immat Gran (auto) Absolute Neuts (auto) Absolute Nucleated RBC Nucleated RBC % Sodium Potassium Chloride Carbon Dioxide Anion Gap BUN Creatinine Estim Creat Clear Calc Estimated GFR Glucose POC Capillary Glucose 82 130 H Calcium Phosphorus Albumin Nasal MRSA (PCR) Not detected Quality VTE Prophylaxis VTE prophylaxis: pharmacologic ordered
--- NOTE | 2024-07-26 15:24 | P.PNNP_ITS ---
Progress Note: A&P Assessment and Plan (1) End stage renal disease: Code(s): N18.6 - End stage renal disease Status: Chronic Assessment and Plan: * continue nightly CCPD * follow electrolytes, volume status, and clearance * adjust PD prescription as needed (2) Cellulitis of left foot: Code(s): L03.116 - Cellulitis of left lower limb Status: Acute Assessment and Plan: * suspected on admission * possible complicated by left great toe wound * follow culture data * on antibiotics (3) Anemia: Code(s): D64.9 - Anemia, unspecified Status: Chronic Assessment and Plan: * due to ESRD * follow trend of H/H * on Epogen 3x/week while hospitalized (4) Hypertension: Qualifiers: Hypertension type: primary hypertension Qualified Code(s): I10 - Essential (primary) hypertension Code(s): I10 - Essential (primary) hypertension Status: Inactive Assessment and Plan: * reasonable control * continue home medications * follow trend of hemodynamics (5) Chronic diastolic (congestive) heart failure: Code(s): I50.32 - Chronic diastolic (congestive) heart failure Status: Chronic Assessment and Plan: * appears compensated * volume status stable * fluid removal with peritoneal dialysis to maintain euvolemia (6) Diabetes mellitus: Code(s): E11.9 - Type 2 diabetes mellitus without complications Status: Chronic Assessment and Plan: * follow accu-cheks * glycemic control per hospitalist Will continue to follow L Subjective Date/time seen: 07/26/24 09:27 Interval history: Follow-up for end stage renal disease on peritoneal dialysis. Chart reviewed -- assuming care from Dr. Mccall; tolerated peritoneal dialysis treatment overnight without any issues or problems (CCPD supervised and seen at 09:15AM); pain controlled with current medications; no apparent distress voiced at the time of my visit; at bedside and we discussed the situation. Exam 2 Narrative: General: WD/WN male in NAD Heart: normal S1 and S2; no rub Lungs: clear to auscultation Abdomen: soft, nontender, nondistended, positive bowel sounds Extremities: no cyanosis or clubbing; no edema Skin: left great toe warmth/erythema with medial ulceration Objective Data Vital Signs Vital Signs: Vital Signs Temp Pulse Resp BP Pulse Ox O2 Del Method 07/26/24 08:39 16 93 Room Air 07/26/24 08:38 70 07/26/24 08:03 62 07/26/24 05:57 97.0 F L 65 12 159/70 H 93 07/26/24 04:00 62 07/26/24 03:00 60 96 CPAP 07/26/24 00:00 63 07/25/24 23:15 63 97 CPAP 07/25/24 21:34 97.3 F L 65 19 174/80 H 97 07/25/24 21:19 97 Room Air 07/25/24 20:00 62 07/25/24 20:00 65 19 97 Room Air Intake/Output Intake/Output: Intake & Output 07/23/24 07/24/24 07/25/24 07/26/24 23:59 23:59 23:59 23:59 Intake Total 760 1570 Output Total 1815 Balance 760 -245 Meds/Results Medications: Active Medications Generic Name Dose Route Start Last Admin Trade Name Freq PRN Reason Stop Dose Admin Aspirin 81 mg 07/25/24 21:00 07/25/24 20:54 Aspirin 81 Mg Enteric Tablet PO 81 mg HS JERMAINE Administration Atorvastatin Calcium 80 mg 07/25/24 21:00 07/25/24 20:54 Atorvastatin 40 Mg Tablet PO 80 mg HS JERMAINE Administration Carvedilol 25 mg 07/25/24 11:10 07/26/24 16:22 Carvedilol 25 Mg Tablet PO 25 mg BIDWM JERMAINE Administration Clopidogrel Bisulfate 75 mg 07/25/24 21:00 07/25/24 20:54 Clopidogrel Bisulfate 75 Mg Tablet PO 75 mg HS JERMAINE Administration Dextrose 12.5 gm 07/25/24 10:55 Dextrose 50% 25 Gm/50 Ml Syringe IV PUSH PRN PRN Hypoglycemia Protocol Diltiazem HCl 120 mg 07/25/24 11:15 07/26/24 08:39 Diltiazem Hcl 12 Hr 60 Mg Cap.12hr PO 120 mg Q12HR JERMAINE Administration Diphenhydramine HCl 25 mg 07/26/24 11:00 07/26/24 11:33 Diphenhydramine Hcl Cap 25 Mg Capsule PO 25 mg Q6H PRN Administration Itching Furosemide 80 mg 07/25/24 11:10 07/26/24 16:22 Furosemide 80 Mg Tablet PO 80 mg BID JERMAINE Administration Gabapentin 300 mg 07/25/24 11:00 07/26/24 08:39 Gabapentin 300 Mg Capsule PO 300 mg Q12HR JERMAINE Administration Glucagon 1 mg 07/25/24 10:55 Glucagon For Inj 1 Mg Vial IM PRN PRN Hypoglycemia Protocol Glucose 15 gm 07/25/24 10:55 Glucose Oral Gel 15 Gm Of Glucse In 37.5 Gm Tube PO PRN PRN Hypoglycemia Protocol Heparin Sodium (Porcine) 5,000 units 07/25/24 14:00 07/26/24 13:15 Heparin Sodium 5,000 Units/Ml Vial SUB-Q 5,000 units Q8HR JERMAINE Administration Hydromorphone HCl 0.5 mg 07/25/24 01:34 07/26/24 15:46 Hydromorphone Hcl Inj (*Crx) 2 Mg/Ml Vial IV PUSH 0.5 mg Q4H PRN Administration Pain Rated 7-10 Dextrose 1,000 mls @ 100 mls/hr 07/25/24 10:55 Dextrose 5% 1,000 Ml IVPB PRN PRN Hypoglycemia Protocol Cefazolin Sodium 1 gm in 50 mls @ 100 mls/hr 07/26/24 21:00 Ancef 1 Gm/Ns 50 Ml IVPB QHS JERMAINE Insulin Aspart 3 - 6 units 07/25/24 12:00 07/26/24 16:33 Insulin Aspart (*Bkc) 100 Units/Ml SUB-Q Not Given TIDWM [facility] Protocol Insulin Aspart 1 - 3 units 07/25/24 21:00 07/25/24 21:07 Insulin Aspart (*Bkc) 100 Units/Ml SUB-Q 3 units HS JERMAINE Administration Protocol Insulin Glargine 20 units 07/25/24 21:00 07/25/24 20:56 Insulin Glargine (*Bkc) 100 Units/Ml SUB-Q 20 units HS JERMAINE Administration Levothyroxine Sodium 112 mcg 07/25/24 11:10 07/26/24 05:42 Levothyroxine Sodium 112 Mcg Tablet PO 112 mcg DAILY@0630 JERMAINE Administration Lisinopril 20 mg 07/25/24 11:15 07/26/24 08:38 Lisinopril 20 Mg Tablet PO 20 mg Q12HR JERMAINE Administration Lorazepam 0.5 mg 07/25/24 10:56 Lorazepam (*Crx) 0.5 Mg Tablet PO DAILY PRN Anxiety Multivitamins/Minerals 1 tablet 07/25/24 11:15 07/26/24 08:39 Opti-Gen Tab PO 1 tablet Q12HR JERMAINE Administration Pantoprazole Sodium 40 mg 07/25/24 11:15 07/26/24 08:38 Pantoprazole 40 Mg Tablet PO 40 mg QAM JERMAINE Administration Tamsulosin HCl 0.4 mg 07/25/24 21:00 07/25/24 20:55 Tamsulosin Hcl 0.4 Mg Capsule PO 0.4 mg HS JERMAINE Administration Vitamin B Complex/Folic Acid 1 cap 07/25/24 11:15 07/26/24 08:39 Vitamin B Cmplx/Vit C/Folic Ac 1 Capsule PO 1 cap QAM JERMAINE Administration Radiology Results: ITS Impressions Chest X-Ray 07/25/24 06:15 Impression: Clear lungs. Foot X-Ray 07/25/24 06:15 Impression: No radiographic evidence for osteomyelitis. Ankle Brachial Index 07/26/24 08:37 IMPRESSION: 1. Arterial occlusive disease with moderately decreased left TWYLA and severely decreased bilateral toe brachial indices. Right TWYLA was unable to be obtained due to inability to occlude the vessels Labs Labs: Laboratory Tests 07/26/24 05:41 07/26/24 05:41 Calcium 8.5 Phosphorus 7.0 H Albumin 3.3 L Microbiology 07/25/24 05:50 Blood Blood Culture - Preliminary 07/24/24 22:13 Blood Blood Culture - Preliminary
--- NOTE | 2024-07-26 15:30 | IVDEFINITY ---
Prior to administration of IV Definity the patient was educated on the risks and benefits of the imaging enhancing agent including potential adverse side effects. The patient verbalized understanding. Allergies were verified. No exclusion criteria were identified and at least one of the following inclusion criteria were met: 1) physician request, 2) patient technically difficult to image (per the [place] [employer] guidelines of two or more segments not discernable within the apical view), or 3) questionable left ventricular function. ?
[2024-07-26 16:31] LABS: Glucose Point of Care 106 mg/dl (65-105)
[2024-07-26 20:12] LABS: Glucose Point of Care 201 mg/dl (65-105)
[2024-07-26] MEDS: TAMSULOSIN HCL 0.4 MG CAPSULE PO (20:24)
[2024-07-26] MEDS: ASPIRIN 81 MG ENTERIC TABLET PO (20:24)
[2024-07-26] MEDS: CLOPIDOGREL BISULFATE 75 MG TABLET PO (20:24)
[2024-07-26] MEDS: ATORVASTATIN 40 MG TABLET 80 MG PO (20:24)
[2024-07-26] MEDS: INSULIN ASPART (*BKC) 100 UNITS/ML SUB-Q (20:25)
[2024-07-26] MEDS: INSULIN GLARGINE (*BKC) 100 UNITS/ML 20 UNITS SUB-Q (20:30)
[2024-07-26] MEDS: ceFAZolin 1 GM/NS 50 ML 1 GM/50 ML BAG IVPB (21:22)
[2024-07-27] VITALS (12 sets, daily range): BP systolic 130–148; BP diastolic 52–69; PULSE 57–77; RESP 16–18; TEMP 36.4–36.6; O2SAT 96–100
[2024-07-27] MEDS: HEPARIN SODIUM 5,000 UNITS/ML VIAL 5000 UNITS SUB-Q ×3 (05:42→21:17)
[2024-07-27] MEDS: LEVOTHYROXINE SODIUM 112 MCG TABLET PO (05:43)
[2024-07-27 06:06] LABS: Hematocrit 27.2 % (42.0-52.0); Hemoglobin 8.3 g/dL (14.0-18.0); Mean Corpuscular HGB Conc 30.5 g/dl (32-36); Mean Corpuscular Hemoglobin 29.4 pg (26-34); Mean Corpuscular Volume 96.5 fl (80-100); Mean Platelet Volume 10.8 fl (7.4-10.4); Platelet Count Result 178 k/mm3 (150-375); Red Blood Count 2.82 M/mm3 (4.6-6.20); Red Cell Distribution Width 15.5 % (11.5-14.5); White Blood Count 5.9 K/mm3 (4.5-10.0)
[2024-07-27 06:22] LABS: Anion Gap 13 mmol/L (4-12); Blood Urea Nitrogen 38 mg/dL (9-20); Calcium 8.4 mg/dL (8.4-10.2); Carbon Dioxide 26 mmol/L (22-30); Chloride 99 mmol/L (98-107); Estimated CRCL calculation 8 ml/min; Estimated Glomerular Filt Rate 5; Glucose 153 mg/dL (65-110); Magnesium 1.5 mg/dL (1.6-2.3); Potassium 3.2 mmol/L (3.4-5.0); Sodium 138 mmol/L (137-145)
[2024-07-27 06:56] LABS: Hepatitis B Surface Antigen Negative (Negative)
[2024-07-27 07:46] LABS: Glucose Point of Care 137 mg/dl (65-105)
[2024-07-27] MEDS: dilTIAZem HCL 12 HR 60 MG CAP.12HR 120 MG PO ×2 (08:31→21:11)
[2024-07-27] MEDS: PANTOPRAZOLE 40 MG TABLET PO (08:31)
[2024-07-27] MEDS: VITAMIN B CMPLX/VIT C/FOLIC AC 1 CAPSULE 1 CAP PO (08:31)
[2024-07-27] MEDS: carvediloL 25 MG TABLET PO ×2 (08:32→17:42)
[2024-07-27] MEDS: GABAPENTIN 300 MG CAPSULE PO ×2 (08:33→21:11)
[2024-07-27] MEDS: OPTI-GEN TAB 1 TABLET PO ×2 (08:33→21:11)
[2024-07-27] MEDS: lisinopriL 20 MG TABLET PO ×2 (08:33→21:12)
[2024-07-27] MEDS: FUROSEMIDE 80 MG TABLET PO ×2 (08:33→17:42)
--- NOTE | 2024-07-27 10:44 | PM.IMPN ---
Progress Note: A&P Assessment and Plan (1) Cellulitis: Code(s): L03.90 - Cellulitis, unspecified Status: Acute (2) Chronic diastolic (congestive) heart failure: Code(s): I50.32 - Chronic diastolic (congestive) heart failure Status: Chronic (3) Elevated troponin: Code(s): R79.89 - Other specified abnormal findings of blood chemistry Status: Acute (4) CAD (coronary artery disease): Code(s): I25.10 - Atherosclerotic heart disease of ambler coronary artery without angina pectoris Status: Acute (5) Hyperlipemia: Code(s): E78.5 - Hyperlipidemia, unspecified Status: Acute (6) Insulin dependent type 2 diabetes mellitus: Code(s): E11.9 - Type 2 diabetes mellitus without complications; Z79.4 - FPC (current) use of insulin Status: Acute (7) Cirrhosis: Code(s): K74.60 - Unspecified cirrhosis of liver Status: Acute (8) Gastroesophageal reflux disease: Code(s): K21.9 - Gastro-esophageal reflux disease without esophagitis Status: Acute (9) BPPV (benign paroxysmal positional vertigo): Code(s): H81.10 - Benign paroxysmal vertigo, unspecified ear Status: Acute (10) End-stage renal disease on peritoneal dialysis: Code(s): N18.6 - End stage renal disease; Z99.2 - Dependence on renal dialysis Status: Chronic (11) Anemia: Code(s): D64.9 - Anemia, unspecified Status: Chronic (12) SHABNAM (obstructive sleep apnea): Code(s): G47.33 - Obstructive sleep apnea (adult) (pediatric) Status: Acute Plan 69 y.o male with PMH/o ESRD on peritoneal dialysis, insulin-dependent type 2 diabetes, hypothyroidism, CAD, hyperlipidemia,diastolic CHF, stents x LAD, history of kidney stones, BPH, obstructive sleep apnea, renal cell carcinoma status post partial left nephrectomy, admitted from ED for c/o left foot pain. He had left great toenails removed per supervisor cooler service few months ago and it was not healing well ever since. He had been complaint with his f/us with supervisor cooler service. In the last few days prior to his admisstion, reddness and pain increased to the point where he went to ED. He reported swelling to left leg and supposed ot have Doppler done in the upcoming next few days. He denies history of VTE, hemoptysis, cough or congestion, chest pain or abdominal pain, fever. He reports shortness of breath, worse with exertion. No orthopnea. He is on peritoneal dialysis, he does not make any urine D-dimer mildly elevated at 0.53, VTE unlikely when age adjusted. Foot x-ray shows no acute osseous abnormality. No evidence of osteomyelitis. CRP is within normal limits. Pt was started on cefepime 1 gm q24h, flagyl 500 mg q8h, vanc BC collected-pending. -will add SS, hypoglycemia protocol, AccuCheck ac/hs - nephrology following - cardiology consulted - heparin added for DVT prophylaxis - Doppler ultrasound ordered -as he was scheduled for it for tomorrow to r/u dvt pt is full code home meds reviewed and restarted as appropriate 07/26 - stable from cardiac stand point, no chest pain - will need an outpt f/u for card cath - continue asa, plavix, statin - MRSA nasal swab neg. NO purulent drainage- will stop vanc - switched to Cefazolin 1 gm hs on 07/26 - bC prelim negative BC reviewed and stable - nephrology following for peritoneal dialysis mngmnt - mg was low when admitted- replaced- will recheck in am with morning labs - k 3.2- replaced- will recheck in am - BS reviewed and stable 07/27 Continue cefazolin wbc stable k.32, mg 1.5 will replace today and monitor closely cr/bun 10. nephrology following Time Spent With Patient Time with patient: 25 - 35 minutes Subjective Date/time seen: 07/27/24 10:44 Interval history: 69 y.o male with PMH/o ESRD on peritoneal dialysis, insulin-dependent type 2 diabetes, hypothyroidism, CAD, hyperlipidemia,diastolic CHF, stents x LAD, history of kidney stones, BPH, obstructive sleep apnea, renal cell carcinoma status post partial left nephrectomy, admitted from ED for c/o left foot pain. He had left great toenails removed per supervisor cooler service few months ago and it was not healing well ever since. He had been complaint with his f/us with supervisor cooler service. In the last few days prior to his admission, reddness and pain increased to the point where he went to ED. He reported swelling to left leg and supposed to have Doppler done in the upcoming next few days. He denies history of VTE, hemoptysis, cough or congestion, chest pain or abdominal pain, fever. He reports shortness of breath, worse with exertion. No orthopnea. He is on peritoneal dialysis, he does not make any urine. of note, he tried doxy outpt. 07/26 - resting in bed. Some redness and itchiness earlier to rt arm- for which he took benadryl and it helps. NO iv was running at that time, so unclear what was the etiology of itchiness and redness. He is feeling ok, no n/v/d. NO bm today/yesterday but does not want t take any miralax or any meds as of now. reddness to lt foot is slightly better. no drainage. 07/27 pt is seen and examined. He had some intermittent episodes of dizzines last night but it passed and he no longer has any compains. Leg swelling is better. Redness is improving. Prelim BC negativ so far Review of Systems Review of Systems: All systems reviewed & are unremarkable except as noted in HPI and below (h/p) Exam Const: General: comfortable Resp: Effort & Inspection: normal respiratory effort Auscultation: clear to auscultation bilaterally Cardio: Rate: regular rate Rhythm: regular rhythm GI: Auscultation: normal bowel sounds Skin: Other: LLE erythema to kt great toe, scab, no nail Psych: Affect: normal affect Objective Data Vital Signs Vital Signs: Vital Signs - 24 hr 07/26/24 12:28 07/26/24 14:00 07/26/24 16:03 Temperature 97.0 F L Pulse Rate 68 62 63 Respiratory Rate 18 Blood Pressure 146/56 H Pulse Oximetry 98 Oxygen Delivery Fraction of Inspired Oxygen 07/26/24 16:22 07/26/24 19:56 07/26/24 20:00 Temperature Pulse Rate 63 66 62 Respiratory Rate 20 Blood Pressure Pulse Oximetry 97 Oxygen Delivery Room Air Fraction of Inspired Oxygen 21 25 21:13 07/27/24 00:00 07/27/24 01:17 Temperature 97.3 F L Pulse Rate 66 57 L Respiratory Rate 19 Blood Pressure 167/70 H Pulse Oximetry 97 Oxygen Delivery CPAP Fraction of Inspired Oxygen 07/27/24 04:00 07/27/24 04:18 07/27/24 05:31 Temperature 97.8 F Pulse Rate 57 L 60 Respiratory Rate 16 Blood Pressure 148/69 H Pulse Oximetry 100 Oxygen Delivery CPAP Fraction of Inspired Oxygen 07/27/24 06:48 07/27/24 08:32 Temperature 97.8 F Pulse Rate 60 77 Respiratory Rate 16 Blood Pressure 148/69 H Pulse Oximetry Oxygen Delivery Fraction of Inspired Oxygen Intake/Output Intake/Output: Intake & Output 07/24/24 07/25/24 07/26/24 07/27/24 23:59 23:59 23:59 23:59 Intake Total 760 1810 340 Output Total 1815 166 Balance 760 -5 174 Meds/Results Medications: Active Medications Generic Name Dose Route Start Last Admin Trade Name Freq PRN Reason Stop Dose Admin Aspirin 81 mg 07/25/24 21:00 07/26/24 20:24 Aspirin 81 Mg Enteric Tablet PO 81 mg HS JERMAINE Administration Atorvastatin Calcium 80 mg 07/25/24 21:00 07/26/24 20:24 Atorvastatin 40 Mg Tablet PO 80 mg HS JERMAINE Administration Carvedilol 25 mg 07/25/24 11:10 07/27/24 08:32 Carvedilol 25 Mg Tablet PO 25 mg BIDWM JERMAINE Administration Clopidogrel Bisulfate 75 mg 07/25/24 21:00 07/26/24 20:24 Clopidogrel Bisulfate 75 Mg Tablet PO 75 mg HS JERMAINE Administration Dextrose 12.5 gm 07/25/24 10:55 Dextrose 50% 25 Gm/50 Ml Syringe IV PUSH PRN PRN Hypoglycemia Protocol Diltiazem HCl 120 mg 07/25/24 11:15 07/27/24 08:31 Diltiazem Hcl 12 Hr 60 Mg Cap.12hr PO 120 mg Q12HR JERMAINE Administration Diphenhydramine HCl 25 mg 07/26/24 11:00 07/26/24 11:33 Diphenhydramine Hcl Cap 25 Mg Capsule PO 25 mg Q6H PRN Administration Itching Furosemide 80 mg 07/25/24 11:10 07/27/24 08:33 Furosemide 80 Mg Tablet PO 80 mg BID JERMAINE Administration Gabapentin 300 mg 07/25/24 11:00 07/27/24 08:33 Gabapentin 300 Mg Capsule PO 300 mg Q12HR JERMAINE Administration Glucagon 1 mg 07/25/24 10:55 Glucagon For Inj 1 Mg Vial IM PRN PRN Hypoglycemia Protocol Glucose 15 gm 07/25/24 10:55 Glucose Oral Gel 15 Gm Of Glucse In 37.5 Gm Tube PO PRN PRN Hypoglycemia Protocol Heparin Sodium (Porcine) 5,000 units 07/25/24 14:00 07/27/24 05:42 Heparin Sodium 5,000 Units/Ml Vial SUB-Q 5,000 units Q8HR JERMAINE Administration Hydromorphone HCl 0.5 mg 07/25/24 01:34 07/26/24 15:46 Hydromorphone Hcl Inj (*Crx) 2 Mg/Ml Vial IV PUSH 0.5 mg Q4H PRN Administration Pain Rated 7-10 Dextrose 1,000 mls @ 100 mls/hr 07/25/24 10:55 Dextrose 5% 1,000 Ml IVPB PRN PRN Hypoglycemia Protocol Cefazolin Sodium 1 gm in 50 mls @ 100 mls/hr 07/26/24 21:00 07/26/24 21:22 Ancef 1 Gm/Ns 50 Ml IVPB 100 mls/hr QHS JERMAINE Administration Insulin Aspart 3 - 6 units 07/25/24 12:00 07/27/24 07:45 Insulin Aspart (*Bkc) 100 Units/Ml SUB-Q Not Given TIDWM JERMAINE Protocol Insulin Aspart 1 - 3 units 07/25/24 21:00 07/26/24 20:25 Insulin Aspart (*Bkc) 100 Units/Ml SUB-Q 1 units HS JERMAINE Administration Protocol Insulin Glargine 20 units 07/25/24 21:00 07/26/24 20:30 Insulin Glargine (*Bkc) 100 Units/Ml SUB-Q 20 units HS JERMAINE Administration Levothyroxine Sodium 112 mcg 07/25/24 11:10 07/27/24 05:43 Levothyroxine Sodium 112 Mcg Tablet PO 112 mcg DAILY@0630 JERMAINE Administration Lisinopril 20 mg 07/25/24 11:15 07/27/24 08:33 Lisinopril 20 Mg Tablet PO 20 mg Q12HR JERMAINE Administration Lorazepam 0.5 mg 07/25/24 10:56 Lorazepam (*Crx) 0.5 Mg Tablet PO DAILY PRN Anxiety Multivitamins/Minerals 1 tablet 07/25/24 11:15 07/27/24 08:33 Opti-Gen Tab PO 1 tablet Q12HR JERMAINE Administration Pantoprazole Sodium 40 mg 07/25/24 11:15 07/27/24 08:31 Pantoprazole 40 Mg Tablet PO 40 mg QAM JERMAINE Administration Tamsulosin HCl 0.4 mg 07/25/24 21:00 07/26/24 20:24 Tamsulosin Hcl 0.4 Mg Capsule PO 0.4 mg HS JERMAINE Administration Vitamin B Complex/Folic Acid 1 cap 07/25/24 11:15 07/27/24 08:31 Vitamin B Cmplx/Vit C/Folic Ac 1 Capsule PO 1 cap QAM JERMAINE Administration Radiology Results: ITS Impressions Chest X-Ray 07/25/24 06:15 Impression: Clear lungs. Foot X-Ray 07/25/24 06:15 Impression: No radiographic evidence for osteomyelitis. Ankle Brachial Index 07/26/24 08:37 IMPRESSION: 1. Arterial occlusive disease with moderately decreased left TWYLA and severely decreased bilateral toe brachial indices. Right TWYLA was unable to be obtained due to inability to occlude the vessels Labs Labs: Laboratory Results - last 24 hr 07/26/24 07/26/24 07/26/24 11:22 16:26 19:51 WBC RBC Hgb Hct MCV MCH MCHC RDW Plt Count MPV Sodium Potassium Chloride Carbon Dioxide Anion Gap BUN Creatinine Estim Creat Clear Calc Estimated GFR Glucose POC Capillary Glucose 130 H 106 H 201 H Calcium Magnesium Hep Bs Antigen 07/27/24 07/27/24 05:43 07:40 WBC 5.9 RBC 2.82 L Hgb 8.3 L Hct 27.2 L MCV 96.5 MCH 29.4 MCHC 30.5 L RDW 15.5 H Plt Count 178 MPV 10.8 H Sodium 138 Potassium 3.2 L Chloride 99 Carbon Dioxide 26 Anion Gap 13 H BUN 38 H Creatinine 10.21 H Estim Creat Clear Calc 8 Estimated GFR 5 L Glucose 153 H POC Capillary Glucose 137 H Calcium 8.4 Magnesium 1.5 L Hep Bs Antigen Negative Quality VTE Prophylaxis VTE prophylaxis: pharmacologic ordered
[2024-07-27] MEDS: polyethylene glycoL 3350 17 GM POWD.PACK PO (11:14)
[2024-07-27] MEDS: POTASSIUM CHLORIDE 20 MEQ ER TABLET 40 MEQ PO (11:15)
--- NOTE | 2024-07-27 11:40 | P.PNNP_ITS ---
Progress Note: A&P Assessment and Plan (1) End stage renal disease: Code(s): N18.6 - End stage renal disease Status: Chronic Assessment and Plan: * continue nightly CCPD * follow electrolytes, volume status, and clearance * adjust PD prescription as needed (2) Cellulitis of left foot: Code(s): L03.116 - Cellulitis of left lower limb Status: Acute Assessment and Plan: * suspected on admission * possible complicated by left great toe wound * follow culture data * on antibiotics (3) Anemia: Code(s): D64.9 - Anemia, unspecified Status: Chronic Assessment and Plan: * due to ESRD * follow trend of H/H * on Epogen 3x/week while hospitalized (4) Hypertension: Qualifiers: Hypertension type: primary hypertension Qualified Code(s): I10 - Essential (primary) hypertension Code(s): I10 - Essential (primary) hypertension Status: Inactive Assessment and Plan: * reasonable control * continue home medications * follow trend of hemodynamics (5) Chronic diastolic (congestive) heart failure: Code(s): I50.32 - Chronic diastolic (congestive) heart failure Status: Chronic Assessment and Plan: * appears compensated * volume status stable * fluid removal with peritoneal dialysis to maintain euvolemia (6) Diabetes mellitus: Code(s): E11.9 - Type 2 diabetes mellitus without complications Status: Chronic Assessment and Plan: * follow accu-cheks * glycemic control per hospitalist Will continue to follow L Subjective Date/time seen: 07/27/24 11:40 Interval history: Follow-up for end stage renal disease on peritoneal dialysis. Left foot erythema seems to be slowly improving with current therapy; CCPD treatment went well last night; no other issues/events overnight or earlier this morning. Exam 2 Narrative: General: WD/WN male in NAD Heart: normal S1 and S2; no rub Lungs: clear to auscultation Abdomen: soft, nontender, nondistended, positive bowel sounds Extremities: no cyanosis or clubbing; no edema Skin: left great toe/foot warmth/erythema reduced Objective Data Vital Signs Vital Signs: Vital Signs Temp Pulse Resp BP Pulse Ox O2 Del Method FiO2 07/27/24 08:33 16 100 Room Air 07/27/24 08:32 77 07/27/24 08:00 59 L 07/27/24 06:48 97.8 F 60 16 148/69 H 07/27/24 05:31 97.8 F 60 16 148/69 H 100 07/27/24 04:18 CPAP 07/27/24 04:00 57 L 07/27/24 01:17 CPAP 07/27/24 00:00 57 L 07/26/24 21:13 97.3 F L 66 19 167/70 H 97 07/26/24 20:00 62 07/26/24 19:56 66 20 97 Room Air 21 07/26/24 16:22 63 07/26/24 16:03 63 07/26/24 14:00 97.0 F L 62 18 146/56 H 98 Intake/Output Intake/Output: Intake & Output 07/24/24 07/25/24 07/26/24 07/27/24 23:59 23:59 23:59 23:59 Intake Total 760 1810 340 Output Total 1815 166 Balance 760 -5 174 Meds/Results Medications: Active Medications Generic Name Dose Route Start Last Admin Trade Name Yordyq PRN Reason Stop Dose Admin Aspirin 81 mg 07/25/24 21:00 07/26/24 20:24 Aspirin 81 Mg Enteric Tablet PO 81 mg HS JERMAINE Administration Atorvastatin Calcium 80 mg 07/25/24 21:00 07/26/24 20:24 Atorvastatin 40 Mg Tablet PO 80 mg HS JERMAINE Administration Carvedilol 25 mg 07/25/24 11:10 07/27/24 08:32 Carvedilol 25 Mg Tablet PO 25 mg BIDWM JERMAINE Administration Clopidogrel Bisulfate 75 mg 07/25/24 21:00 07/26/24 20:24 Clopidogrel Bisulfate 75 Mg Tablet PO 75 mg HS JERMAINE Administration Dextrose 12.5 gm 07/25/24 10:55 Dextrose 50% 25 Gm/50 Ml Syringe IV PUSH PRN PRN Hypoglycemia Protocol Diltiazem HCl 120 mg 07/25/24 11:15 07/27/24 08:31 Diltiazem Hcl 12 Hr 60 Mg Cap.12hr PO 120 mg Q12HR JERMAINE Administration Diphenhydramine HCl 25 mg 07/26/24 11:00 07/26/24 11:33 Diphenhydramine Hcl Cap 25 Mg Capsule PO 25 mg Q6H PRN Administration Itching Furosemide 80 mg 07/25/24 11:10 07/27/24 08:33 Furosemide 80 Mg Tablet PO 80 mg BID JERMAINE Administration Gabapentin 300 mg 07/25/24 11:00 07/27/24 08:33 Gabapentin 300 Mg Capsule PO 300 mg Q12HR JERMAINE Administration Glucagon 1 mg 07/25/24 10:55 Glucagon For Inj 1 Mg Vial IM PRN PRN Hypoglycemia Protocol Glucose 15 gm 07/25/24 10:55 Glucose Oral Gel 15 Gm Of Glucse In 37.5 Gm Tube PO PRN PRN Hypoglycemia Protocol Heparin Sodium (Porcine) 5,000 units 07/25/24 14:00 07/27/24 05:42 Heparin Sodium 5,000 Units/Ml Vial SUB-Q 5,000 units Q8HR JERMAINE Administration Hydromorphone HCl 0.5 mg 07/25/24 01:34 07/26/24 15:46 Hydromorphone Hcl Inj (*Crx) 2 Mg/Ml Vial IV PUSH 0.5 mg Q4H PRN Administration Pain Rated 7-10 Dextrose 1,000 mls @ 100 mls/hr 07/25/24 10:55 Dextrose 5% 1,000 Ml IVPB PRN PRN Hypoglycemia Protocol Cefazolin Sodium 1 gm in 50 mls @ 100 mls/hr 07/26/24 21:00 07/26/24 21:22 Ancef 1 Gm/Ns 50 Ml IVPB 100 mls/hr QHS JERMAINE Administration Insulin Aspart 3 - 6 units 07/25/24 12:00 07/27/24 12:07 Insulin Aspart (*Bkc) 100 Units/Ml SUB-Q 3 units TIDWM JERMAINE Administration Protocol Insulin Aspart 1 - 3 units 07/25/24 21:00 07/26/24 20:25 Insulin Aspart (*Bkc) 100 Units/Ml SUB-Q 1 units HS JERMAINE Administration Protocol Insulin Glargine 20 units 07/25/24 21:00 07/26/24 20:30 Insulin Glargine (*Bkc) 100 Units/Ml SUB-Q 20 units HS JERMAINE Administration Levothyroxine Sodium 112 mcg 07/25/24 11:10 07/27/24 05:43 Levothyroxine Sodium 112 Mcg Tablet PO 112 mcg DAILY@0630 JERMAINE Administration Lisinopril 20 mg 07/25/24 11:15 07/27/24 08:33 Lisinopril 20 Mg Tablet PO 20 mg Q12HR JERMAINE Administration Lorazepam 0.5 mg 07/25/24 10:56 Lorazepam (*Crx) 0.5 Mg Tablet PO DAILY PRN Anxiety Magnesium Oxide 200 mg 07/27/24 21:00 Magnesium Oxide 200 Mg Tablet PO 07/28/24 09:01 Q12HR [facility] Multivitamins/Minerals 1 tablet 07/25/24 11:15 07/27/24 08:33 Opti-Gen Tab PO 1 tablet Q12HR JERMAINE Administration Pantoprazole Sodium 40 mg 07/25/24 11:15 07/27/24 08:31 Pantoprazole 40 Mg Tablet PO 40 mg QAM JERMAINE Administration Polyethylene Glycol 17 gm 07/27/24 10:52 07/27/24 11:14 Polyethylene Glycol 3350 17 Gm Powd.Pack PO 17 gm QAM PRN Administration Constipation Tamsulosin HCl 0.4 mg 07/25/24 21:00 07/26/24 20:24 Tamsulosin Hcl 0.4 Mg Capsule PO 0.4 mg HS JERMAINE Administration Vitamin B Complex/Folic Acid 1 cap 07/25/24 11:15 07/27/24 08:31 Vitamin B Cmplx/Vit C/Folic Ac 1 Capsule PO 1 cap QAM JERMAINE Administration Radiology Results: ITS Impressions Chest X-Ray 07/25/24 06:15 Impression: Clear lungs. Foot X-Ray 07/25/24 06:15 Impression: No radiographic evidence for osteomyelitis. Ankle Brachial Index 07/26/24 08:37 IMPRESSION: 1. Arterial occlusive disease with moderately decreased left TWYLA and severely decreased bilateral toe brachial indices. Right TWYLA was unable to be obtained due to inability to occlude the vessels Labs Labs: Laboratory Tests 07/27/24 05:43 07/27/24 05:43 Calcium 8.4 Magnesium 1.5 L Hep Bs Antigen Negative
[2024-07-27 11:42] LABS: Glucose Point of Care 216 mg/dl (65-105)
[2024-07-27 11:59] LABS: Glucose Point of Care 250 mg/dl (65-105)
[2024-07-27] MEDS: INSULIN ASPART (*BKC) 100 UNITS/ML SUB-Q (12:07)
[2024-07-27 16:57] LABS: Glucose Point of Care 154 mg/dl (65-105)
[2024-07-27] MEDS: ACETAMINOPHEN 325 MG TABLET 650 MG PO (18:15)
[2024-07-27 20:52] LABS: Glucose Point of Care 200 mg/dl (65-105)
[2024-07-27] MEDS: ATORVASTATIN 40 MG TABLET 80 MG PO (21:11)
[2024-07-27] MEDS: TAMSULOSIN HCL 0.4 MG CAPSULE PO (21:12)
[2024-07-27] MEDS: ASPIRIN 81 MG ENTERIC TABLET PO (21:12)
[2024-07-27] MEDS: MAGNESIUM OXIDE 200 MG TABLET PO (21:12)
[2024-07-27] MEDS: ceFAZolin 1 GM/NS 50 ML 1 GM/50 ML BAG IVPB (21:12)
[2024-07-27] MEDS: CLOPIDOGREL BISULFATE 75 MG TABLET PO (21:12)
[2024-07-27] MEDS: INSULIN GLARGINE (*BKC) 100 UNITS/ML 20 UNITS SUB-Q (21:13)
[2024-07-28 05:32] VITALS: BP 151/75; PULSE 58; RESP 18; TEMP 36.4; O2SAT 99
[2024-07-28] MEDS: LEVOTHYROXINE SODIUM 112 MCG TABLET PO (06:42)
[2024-07-28] MEDS: HEPARIN SODIUM 5,000 UNITS/ML VIAL 5000 UNITS SUB-Q (06:42)
[2024-07-28 07:00] VITALS: BP 151/75; PULSE 58; RESP 18; TEMP 36.4
[2024-07-28 07:47] LABS: Glucose Point of Care 194 mg/dl (65-105)
[2024-07-28 08:25] LABS: Basophils Percent Auto 0.3 % (0.2-1.2); Eosinophils Absolute Auto 0.1 K/mm3 (0-0.3); Eosinophils Percent Auto 1.2 % (0-4.4); Hematocrit 28.3 % (42.0-52.0); Hemoglobin 8.7 g/dL (14.0-18.0); Immature Granulocyte Percent A 1.7 % (0-0.5); Lymphocytes Absolute Auto 0.88 K/mm3 (0.9-3.2); Lymphocytes Percent Auto 14.7 % (18.3-44.2); Mean Corpuscular HGB Conc 30.7 g/dl (32-36); Mean Corpuscular Hemoglobin 29.6 pg (26-34); Mean Corpuscular Volume 96.3 fl (80-100); Mean Platelet Volume 10.5 fl (7.4-10.4); Monocytes Absolute Auto 0.8 K/mm3 (0.1-0.6); Neutrophils Absolute Auto 4.1 K/mm3 (1.3-6.7); Neutrophils Percent Auto 68.1 % (45.5-73.1); Platelet Count Result 188 k/mm3 (150-375); Red Blood Count 2.94 M/mm3 (4.6-6.20); Red Cell Distribution Width 15.7 % (11.5-14.5)
[2024-07-28 08:37] LABS: Albumin Level 3.1 g/dL (3.5-5.1); Anion Gap 11 mmol/L (4-12); Blood Urea Nitrogen 37 mg/dL (9-20); Calcium 8.4 mg/dL (8.4-10.2); Carbon Dioxide 27 mmol/L (22-30); Chloride 100 mmol/L (98-107); Estimated CRCL calculation 8 ml/min; Estimated Glomerular Filt Rate 5; Glucose 178 mg/dL (65-110); Magnesium 1.5 mg/dL (1.6-2.3); Phosphorus 7.7 mg/dL (2.5-4.5); Potassium 3.1 mmol/L (3.4-5.0); Sodium 138 mmol/L (137-145)
[2024-07-28 08:43] VITALS: O2SAT 99
[2024-07-28] MEDS: FUROSEMIDE 80 MG TABLET PO (08:56)
[2024-07-28] MEDS: VITAMIN B CMPLX/VIT C/FOLIC AC 1 CAPSULE 1 CAP PO (08:56)
[2024-07-28] MEDS: OPTI-GEN TAB 1 TABLET PO (08:56)
[2024-07-28] MEDS: MAGNESIUM OXIDE 200 MG TABLET PO (08:56)
[2024-07-28] MEDS: GABAPENTIN 300 MG CAPSULE PO (08:56)
[2024-07-28] MEDS: dilTIAZem HCL 12 HR 60 MG CAP.12HR 120 MG PO (08:56)
[2024-07-28] MEDS: PANTOPRAZOLE 40 MG TABLET PO (08:56)
[2024-07-28] MEDS: lisinopriL 20 MG TABLET PO (08:56)
[2024-07-28] MEDS: carvediloL 25 MG TABLET PO (08:57)
--- NOTE | 2024-07-28 11:10 | P.PNNP_ITS ---
Progress Note: A&P Assessment and Plan (1) End stage renal disease: Code(s): N18.6 - End stage renal disease Status: Chronic Assessment and Plan: * continue nightly CCPD * follow electrolytes, volume status, and clearance * adjust PD prescription as needed (2) Cellulitis of left foot: Code(s): L03.116 - Cellulitis of left lower limb Status: Acute Assessment and Plan: * suspected on admission * possible complicated by left great toe wound * follow culture data * on antibiotics (3) Anemia: Code(s): D64.9 - Anemia, unspecified Status: Chronic Assessment and Plan: * due to ESRD * follow trend of H/H * on Epogen 3x/week while hospitalized (4) Hypertension: Qualifiers: Hypertension type: primary hypertension Qualified Code(s): I10 - Essential (primary) hypertension Code(s): I10 - Essential (primary) hypertension Status: Inactive Assessment and Plan: * reasonable control * continue home medications * follow trend of hemodynamics (5) Chronic diastolic (congestive) heart failure: Code(s): I50.32 - Chronic diastolic (congestive) heart failure Status: Chronic Assessment and Plan: * appears compensated * volume status stable * fluid removal with peritoneal dialysis to maintain euvolemia (6) Diabetes mellitus: Code(s): E11.9 - Type 2 diabetes mellitus without complications Status: Chronic Assessment and Plan: * follow accu-cheks * glycemic control per hospitalist Will continue to follow L Subjective Date/time seen: 07/28/24 11:10 Interval history: Follow-up for end stage renal disease on peritoneal dialysis. Tolerated peritoneal dialysis treatment last night without any issues or problems (CCPD supervised and seen at 11:00AM); no other events overnight or earlier this morning; no apparent distress noted. Exam 2 Narrative: General: WD/WN male in NAD Heart: normal S1 and S2; no rub Lungs: clear anteriorly Abdomen: soft, nontender, nondistended, positive bowel sounds Extremities: no cyanosis or clubbing; no edema Skin: left great toe/foot warmth/erythema improved Objective Data Vital Signs Vital Signs: Vital Signs Temp Pulse Resp BP Pulse Ox O2 Del Method FiO2 07/28/24 08:43 99 Room Air 07/28/24 08:00 Room Air 07/28/24 07:00 97.5 F L 58 L 18 151/75 H 07/28/24 05:32 97.5 F L 58 L 18 151/75 H 99 07/28/24 02:57 CPAP 07/27/24 23:45 60 96 CPAP 21 07/27/24 23:45 CPAP 07/27/24 22:00 97.7 F 64 16 132/52 L 97 07/27/24 20:00 Room Air 07/27/24 17:42 64 Intake/Output Intake/Output: Intake & Output 07/25/24 07/26/24 07/27/24 07/28/24 23:59 23:59 23:59 23:59 Intake Total 760 1860 1420 705 Output Total 8852 620 3344 Balance 561 01 4995 1923 Meds/Results Medications: Active Medications Generic Name Dose Route Start Last Admin Trade Name Freq PRN Reason Stop Dose Admin Acetaminophen 650 mg 07/27/24 17:50 07/27/24 18:15 Acetaminophen 325 Mg Tablet PO 650 mg Q4H PRN Administration Pain or Fever Aspirin 81 mg 07/25/24 21:00 07/27/24 21:12 Aspirin 81 Mg Enteric Tablet PO 81 mg HS JERMAINE Administration Atorvastatin Calcium 80 mg 07/25/24 21:00 07/27/24 21:11 Atorvastatin 40 Mg Tablet PO 80 mg HS JERMAINE Administration Carvedilol 25 mg 07/25/24 11:10 07/28/24 08:57 Carvedilol 25 Mg Tablet PO 25 mg BIDWM JERMAINE Administration Cephalexin HCl 500 mg 07/28/24 21:00 Cephalexin 500 Mg Capsule PO 07/31/24 21:01 Q12HR JERMAINE Clopidogrel Bisulfate 75 mg 07/25/24 21:00 07/27/24 21:12 Clopidogrel Bisulfate 75 Mg Tablet PO 75 mg HS JERMAINE Administration Dextrose 12.5 gm 07/25/24 10:55 Dextrose 50% 25 Gm/50 Ml Syringe IV PUSH PRN PRN Hypoglycemia Protocol Diltiazem HCl 120 mg 07/25/24 11:15 07/28/24 08:56 Diltiazem Hcl 12 Hr 60 Mg Cap.12hr PO 120 mg Q12HR JERMAINE Administration Diphenhydramine HCl 25 mg 07/26/24 11:00 07/26/24 11:33 Diphenhydramine Hcl Cap 25 Mg Capsule PO 25 mg Q6H PRN Administration Itching Furosemide 80 mg 07/25/24 11:10 07/28/24 08:56 Furosemide 80 Mg Tablet PO 80 mg BID JERMAINE Administration Gabapentin 300 mg 07/25/24 11:00 07/28/24 08:56 Gabapentin 300 Mg Capsule PO 300 mg Q12HR JERMAINE Administration Glucagon 1 mg 07/25/24 10:55 Glucagon For Inj 1 Mg Vial IM PRN PRN Hypoglycemia Protocol Glucose 15 gm 07/25/24 10:55 Glucose Oral Gel 15 Gm Of Glucse In 37.5 Gm Tube PO PRN PRN Hypoglycemia Protocol Heparin Sodium (Porcine) 5,000 units 07/25/24 14:00 07/28/24 06:42 Heparin Sodium 5,000 Units/Ml Vial SUB-Q 5,000 units Q8HR JERMAINE Administration Hydromorphone HCl 0.5 mg 07/25/24 01:34 07/26/24 15:46 Hydromorphone Hcl Inj (*Crx) 2 Mg/Ml Vial IV PUSH 0.5 mg Q4H PRN Administration Pain Rated 7-10 Dextrose 1,000 mls @ 100 mls/hr 07/25/24 10:55 Dextrose 5% 1,000 Ml IVPB PRN PRN Hypoglycemia Protocol Insulin Aspart 3 - 6 units 07/25/24 12:00 07/28/24 13:05 Insulin Aspart (*Bkc) 100 Units/Ml SUB-Q 3 units TIDWM JEMRAINE Administration Protocol Insulin Aspart 1 - 3 units 07/25/24 21:00 07/27/24 21:14 Insulin Aspart (*Bkc) 100 Units/Ml SUB-Q Not Given HS JERMAINE Protocol Insulin Glargine 20 units 07/25/24 21:00 07/27/24 21:13 Insulin Glargine (*Bkc) 100 Units/Ml SUB-Q 20 units HS JERMAINE Administration Levothyroxine Sodium 112 mcg 07/25/24 11:10 07/28/24 06:42 Levothyroxine Sodium 112 Mcg Tablet PO 112 mcg DAILY@0630 JERMAINE Administration Lisinopril 20 mg 07/25/24 11:15 07/28/24 08:56 Lisinopril 20 Mg Tablet PO 20 mg Q12HR JERMAINE Administration Lorazepam 0.5 mg 07/25/24 10:56 Lorazepam (*Crx) 0.5 Mg Tablet PO DAILY PRN Anxiety Multivitamins/Minerals 1 tablet 07/25/24 11:15 07/28/24 08:56 Opti-Gen Tab PO 1 tablet Q12HR JERMAINE Administration Pantoprazole Sodium 40 mg 07/25/24 11:15 07/28/24 08:56 Pantoprazole 40 Mg Tablet PO 40 mg QAM JERMAINE Administration Polyethylene Glycol 17 gm 07/27/24 10:52 07/27/24 11:14 Polyethylene Glycol 3350 17 Gm Powd.Pack PO 17 gm QAM PRN Administration Constipation Tamsulosin HCl 0.4 mg 07/25/24 21:00 07/27/24 21:12 Tamsulosin Hcl 0.4 Mg Capsule PO 0.4 mg HS JERMAINE Administration Vitamin B Complex/Folic Acid 1 cap 07/25/24 11:15 07/28/24 08:56 Vitamin B Cmplx/Vit C/Folic Ac 1 Capsule PO 1 cap QAM JERMAINE Administration Radiology Results: ITS Impressions Chest X-Ray 07/25/24 06:15 Impression: Clear lungs. Foot X-Ray 07/25/24 06:15 Impression: No radiographic evidence for osteomyelitis. Ankle Brachial Index 07/26/24 08:37 IMPRESSION: 1. Arterial occlusive disease with moderately decreased left TWYLA and severely decreased bilateral toe brachial indices. Right TWYLA was unable to be obtained due to inability to occlude the vessels Venous Doppler Study 07/27/24 17:40 IMPRESSION: 1. No deep venous thrombosis in either lower limb. Labs Labs: Laboratory Tests 07/28/24 08:16 07/28/24 08:16 Calcium 8.4 Phosphorus 7.7 H Magnesium 1.5 L Albumin 3.1 L
[2024-07-28 11:50] LABS: Glucose Point of Care 227 mg/dl (65-105)
[2024-07-28] MEDS: MAGNESIUM SULF 1 GM/D5W 100 ML 1 GM/100 ML BAG IVPB (13:04)
[2024-07-28] MEDS: POTASSIUM CHLORIDE 20 MEQ ER TABLET PO (13:05)
[2024-07-28] MEDS: INSULIN ASPART (*BKC) 100 UNITS/ML SUB-Q (13:05)
[2024-07-28 14:00] VITALS: BP 167/71; PULSE 65; RESP 18; TEMP 36.7; O2SAT 99
--- NOTE | 2024-07-28 14:02 | P.DS_ITS ---
DS: Admitting Diagnosis Discharge Date 07/28/24 Admitting Diagnosis Left foot pain DS: Discharge Diagnosis Discharge Diagnosis (1) Cellulitis: Code(s): L03.90 - Cellulitis, unspecified Status: Acute (2) Chronic diastolic (congestive) heart failure: Code(s): I50.32 - Chronic diastolic (congestive) heart failure Status: Chronic (3) Elevated troponin: Code(s): R79.89 - Other specified abnormal findings of blood chemistry Status: Acute (4) CAD (coronary artery disease): Code(s): I25.10 - Atherosclerotic heart disease of [place] coronary artery without angina pectoris Status: Acute (5) End-stage renal disease on peritoneal dialysis: Code(s): N18.6 - End stage renal disease; Z99.2 - Dependence on renal dialysis Status: Chronic (6) Hyperlipemia: Code(s): E78.5 - Hyperlipidemia, unspecified Status: Acute (7) Insulin dependent type 2 diabetes mellitus: Code(s): E11.9 - Type 2 diabetes mellitus without complications; Z79.4 - 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 (current) use of insulin Status: Acute (8) Cirrhosis: Code(s): K74.60 - Unspecified cirrhosis of liver Status: Acute (9) Gastroesophageal reflux disease: Code(s): K21.9 - Gastro-esophageal reflux disease without esophagitis Status: Acute (10) BPPV (benign paroxysmal positional vertigo): Code(s): H81.10 - Benign paroxysmal vertigo, unspecified ear Status: Acute (11) Anemia: Code(s): D64.9 - Anemia, unspecified Status: Chronic (12) SHABNAM (obstructive sleep apnea): Code(s): G47.33 - Obstructive sleep apnea (adult) (pediatric) Status: Acute (13) PAD (peripheral artery disease): Code(s): I73.9 - Peripheral vascular disease, unspecified Status: Acute DS: Summary Hospital Course Reason for hospitalization: 69yo male with ESRD on peritoneal dialysis, insulin-dependent type 2 diabetes, hypothyroidism, CAD with stents to the LAD, hyperlipidemia, diastolic CHF, BPH, SHABNAM and renal cell carcinoma status post partial left nephrectomy here for c/o left foot pain. Please see H&P for details. Hospital Course: Patient had left great toenails removed per social science teacher few months ago and it was not healing well ever since. He has been treated with doxycycline prior to admission. In the last few days prior to his admission, he has noted redness and pain increased to the point where he went to ED. In the ED, vital signs were stable and he was afebrile. CXR was clear. Left foot xray was negative for fracture or concerns for osteomyelitis. LE arterial doppler showing arterial occlusive disease with moderately decreased left TWYLA and severely decreased bilateral toe brachial indices. Right TWYLA was unable to be obtained due to inability to occlude the vessels. Concerning for PAD. Family and patient made aware and recommend a arteriogram of the LE to further assess which can be done as an outpatient. DDimer mildly elevated at 0.53. Bilateral LE venous doppler was negative for DVT. No clinical evidence for PE. Magnesium was low and this was replaced. Troponin was elevated to 0.33. Patient denies chest pain. Gas Station Attendant consulted. He reports a recent heart cardiac catheterization showing 80% stenosis with plans for repeat cath. We continued Coreg, aspirin, Plavix and atorvastatin and encourage him to follow up with his computer systems administrator as scheduled. Patient was started on cefepime, flagyl and vancomycin. BCx was NGTD. Nephrology following and we continued peritoneal dialysis here that he tolerated well. He remained afebrile and WBC remained normal. His abx were de-escalated to cefazolin. MRSA nasal swab negative. No purulent drainage. His exam continued to improve. He overall did well and was able to be discharged home on 07/28/24 Status at Discharge Cognitive/behavioral status at discharge: stable Time Spent with Patient Time attestation: Total time spent providing and/or coordinating discharge services: 35 minutes Time spent: Greater than 30 minutes Exam Narrative: AF 97.5 151/75 58 18 99% ra Gen - NARD Chest - CTA bilaterally, nml RR CV - RRR S1/S2 Abd - Soft, obese, NT, PD catheter site clean and dry. Ext - trace L>R pedal edema Psych - Nml mood and affect Skin - hyperpigmented area dorsum bilateral feet. redness to the bilateral toes that are cool to touch but with 2-3 sec cap refill. left great toe without nail and dried eschar at old nail bed and lateral. no warmth to the left great toe. DS: Data Data Completed and Pending Labs on day of discharge: Labs from last 24 hours 07/28/24 07/28/24 07/28/24 11:46 08:16 07:44 WBC 6.0 RBC 2.94 L Hgb 8.7 L Hct 28.3 L MCV 96.3 MCH 29.6 MCHC 30.7 L RDW 15.7 H Plt Count 188 MPV 10.5 H Immature Gran % (Auto) 1.7 H Neut % (Auto) 68.1 Lymph % (Auto) 14.7 L Sherman % (Auto) 14.0 H Eos % (Auto) 1.2 Baso % (Auto) 0.3 Lymph # (Auto) 0.88 L Sherman # (Auto) 0.8 H Eos # (Auto) 0.1 Baso # (Auto) 0.0 Abs Immat Gran (auto) 0.10 H Absolute Neuts (auto) 4.1 Absolute Nucleated RBC 0.000 Nucleated RBC % 0.0 Sodium 138 Potassium 3.1 L Chloride 100 Carbon Dioxide 27 Anion Gap 11 BUN 37 H Creatinine 10.34 H Estim Creat Clear Calc 8 Estimated GFR 5 L Glucose 178 H POC Capillary Glucose 227 H 194 H Calcium 8.4 Phosphorus 7.7 H Magnesium 1.5 L Albumin 3.1 L 07/27/24 07/27/24 20:04 16:50 WBC RBC Hgb Hct MCV MCH MCHC RDW Plt Count MPV Immature Gran % (Auto) Neut % (Auto) Lymph % (Auto) Sherman % (Auto) Eos % (Auto) Baso % (Auto) Lymph # (Auto) Sherman # (Auto) Eos # (Auto) Baso # (Auto) Abs Immat Gran (auto) Absolute Neuts (auto) Absolute Nucleated RBC Nucleated RBC % Sodium Potassium Chloride Carbon Dioxide Anion Gap BUN Creatinine Estim Creat Clear Calc Estimated GFR Glucose POC Capillary Glucose 200 H 154 H Calcium Phosphorus Magnesium Albumin Preliminary micro results at discharge 07/25/24 05:50 Blood Culture - Preliminary Blood 07/24/24 22:13 Blood Culture - Preliminary Blood Discharge Plan Discharge Attending physician on discharge: Aldair Calvert Consulting providers: Orlando Spencer; Alan Mccall Discharging Clinician: Aldair Calvert Anticipated Discharge Date/Time: 07/28/24 14:44 Patient Disposition: Home Activity: as tolerated and follow weight bearing status Diet: heart healthy and diabetic Discharge Instructions: No weight bearing to the left great toe area until healed. Please check glucose before meals and before bed. Record and bring into your doctor for review. Check blood pressure 1 to 2 times a day. Record and bring into your doctor for review. Call your doctor if your blood pressure is greater than 180/110. Please complete your antibiotic course even if you are starting to feel well. Take precautions to avoid falls. Rise slowly from a lying or sitting position. Pause before standing or walking. Continue Peritoneal dialysis per routine Contact your doctor or call 911 and come to the Emergency Room if you have fever, increasing pain or redness to the left foot or other worrisome symptoms. Avoid NSAIDs (ibuprofen, naproxen, Aleve). Tylenol is safe to take. Follow-up with your primary care provider in 1-2 weeks. Please call for appointment. Follow-up with your computer systems administrator as previously scheduled. -- Discuss with cardiology about further testing regarding your abnormal lower extremity arterial ultrasound. Thank you for using [facility] for your health care needs. Patient Instructions: Antibiotic Form Patient Language: Palauan Stand Alone Forms: General Discharge Information Follow-up/Referrals: Jeff Strickland MD [Primary Care Provider] - Call for Appointment Discharge Medications: New cephalexin 500 mg Capsule 500 mg PO Q12HR Qty: 7 0RF Continued aspirin [Sami Low Dose Aspirin] 81 mg Tablet,Delayed Release (Dr/Ec) 81 mg PO HS ICaps AREDS2 (copper citrate) 250 mg-200 unit -12.5 mg-1 mg Tablet 1 tablet PO Q12H pantoprazole 40 mg tablet,delayed release (DR/EC) 40 mg PO QAM Qty: 30 3RF lipase 60,000-protease 189,600-amylase 252,600 unit capsule, delay rel 60,000-189,600- 252,600 unit capsule,delayed release(DR/EC) 0RF Patient Comments: PATIENT IS SUPPOSE TO TAKE IT TAKE IT TWICE A DAY WITH MEALS (DME) [employer] G6 Transmitter Device See Rx Instructions .Route Rx Instructions: As directed furosemide 80 mg tablet 80 mg PO BID lisinopril 20 mg tablet 20 mg PO BID cholecalciferol (vitamin D3) [Vitamin D3] 125 mcg (5,000 unit) Tablet 125 mcg PO DAILY atorvastatin 80 mg tablet 80 mg PO HS carvedilol 25 mg tablet 25 mg PO BID diltiazem HCl 120 mg capsule,extended release 12 hr 120 mg PO BID tamsulosin 0.4 mg capsule 0.4 mg PO HS Dialyvite 800-Ultra D 0.8-2,000 mg-unit tablet 800 tablet PO DAILY insulin aspart U-100 [Novolog FlexPen U-100 Insulin] 100 unit/mL (3 mL) insulin pen 1 sliding scale dose subcut TID Patient Comments: PATIENT TAKES 5 UNITS WITH MEALS SCHEDULED AND GOES UP TO 15 UNITS IF IT GETS TO 300 insulin glargine [Basaglar KwikPen U-100 Insulin] 100 unit/mL (3 mL) insulin pen 35 unit subcut HS Patient Comments: 40 UNITS IN MORNING clonidine 0.2 mg/24 hr patch weekly 1 patch topical WEEKLY clopidogrel 75 mg tablet 75 mg PO HS hydralazine 10 mg tablet 10 mg PO TID PRN (Reason: hypertension) Patient Comments: FOR SYSTOLIC BP ABOVE 180 gabapentin 300 mg capsule 300 mg PO Q12H levothyroxine 112 mcg tablet 112 mcg PO DAILY Qty: 90 2RF lorazepam [Ativan] 0.5 mg tablet 0.5 mg PO DAILY PRN (Reason: Anxiety) Qty: 30 0RF Date of admission: 07/26/24 15:24 Primary Care Provider: Jeff Strickland Admitting Provider: Krystal Johnson Attending physician on admission: Krystal Johnson Condition: Stable Hospitalist MIPS Heart Failure (Exclusion) Patient has history of Heart Transplant or Left Ventricular Assistive Device?: No IF YES, STOP HERE Heart Failure (Qualifier) Patient has current or prior documentation of LVEF less than or equal to 40%, or mod/servere depressed LVSF?: No IF NO, STOP HERE
== END 2024-07-28 15:33 | disposition home or self-care (01) | DRG 638 ==
LOC: ANHED 07-25 01:34 → ANH3MEDSUR 07-25 02:09
PROVIDERS: Internal Medicine Nephrology; Nurse Practitioner; Admitting Provider Internal Medicine; Emergency Provider Physician Assistant; PCP Family Medicine; Visit Provider Internal Medicine
DX: E11.628 Type 2 diabetes mellitus with other skin complications (principal); I13.2 Hypertensive heart and chronic kidney disease with heart failure and with stage 5 chronic kidney disease, or end stage renal disease; L03.116 Cellulitis of left lower limb; I50.32 Chronic diastolic (congestive) heart failure; E11.621 Type 2 diabetes mellitus with foot ulcer; L97.529 Non-pressure chronic ulcer of other part of left foot with unspecified severity; N18.6 End stage renal disease; I25.10 Atherosclerotic heart disease of native coronary artery without angina pectoris; E11.22 Type 2 diabetes mellitus with diabetic chronic kidney disease; E11.51 Type 2 diabetes mellitus with diabetic peripheral angiopathy without gangrene; E11.40 Type 2 diabetes mellitus with diabetic neuropathy, unspecified; E03.9 Hypothyroidism, unspecified; E78.5 Hyperlipidemia, unspecified; D64.9 Anemia, unspecified; J32.2 Chronic ethmoidal sinusitis; K21.9 Gastro-esophageal reflux disease without esophagitis; K52.9 Noninfective gastroenteritis and colitis, unspecified; K74.60 Unspecified cirrhosis of liver; M19.90 Unspecified osteoarthritis, unspecified site; N40.0 Benign prostatic hyperplasia without lower urinary tract symptoms; H81.10 Benign paroxysmal vertigo, unspecified ear; G47.33 Obstructive sleep apnea (adult) (pediatric); F41.9 Anxiety disorder, unspecified; F32.A Depression, unspecified; Z99.2 Dependence on renal dialysis; Z79.82 Long term (current) use of aspirin; Z79.4 Long term (current) use of insulin; Z79.02 Long term (current) use of antithrombotics/antiplatelets; Z87.442 Personal history of urinary calculi; Z85.528 Personal history of other malignant neoplasm of kidney; Z95.5 Presence of coronary angioplasty implant and graft; Z80.0 Family history of malignant neoplasm of digestive organs; Z90.5 Acquired absence of kidney
CPT/HCPCS: 36415; 71045; 73630; 80048; 80053; 80069; 82948; 83605; 83735; 83880; 84484; 85025; 85027; 85380; 85610; 85652; 85730; 86140; 87040; 87340; 87641; 90945; 93005; 93922; 93970; 94002; 94003; 96365; 96366; 96367; 96372; 96375; 96376; 99212; 99285; A9270; C8929; G0378; G0463; J0690; J0692; J1171; J1644; J1815; J1836; J2270; J3370; J3475; Q9957

== ENCOUNTER 2024-08-05 13:02 | Outpatient (RCR) | payer MEDICARE, SELFPAY ==
[2024-08-05 13:32] VITALS: BMI 40.5
== END 2024-10-11 10:44 | disposition home or self-care (01) ==
LOC: ANHWOC 13:02
PROVIDERS: PCP Family Medicine; Visit Provider Physician Assistant
DX: Z48.00 Encounter for change or removal of nonsurgical wound dressing (principal); S91.102A Unspecified open wound of left great toe without damage to nail, initial encounter
CPT/HCPCS: 99214; G0463

== ENCOUNTER 2024-08-30 18:35 | Emergency (ER) | payer MEDICARE, SELFPAY ==
--- OUTSIDE RECORDS SUMMARY | 2024-08-30 18:38 | XMS_ITS | Encounter Summary ---
Author Organization [facility] Address [address] [place] [address] Phone Care Team Providers Care Pipe Smoking Machine Offbearer Name Role Phone Jeff Strickland MD Primary Care Provider Chan Nicholas MD Unavailable [phone] Alan Mccall MD Unavailable [phone] Lorna Lantigua MD Unavailable [phone] Juliette Savage RN Unavailable Pepito Haro MD PhD Unavailable Solange Guido MD Unavailable Letha Gil RN Unavailable Encounter Details Date Type Department Care Team (Late st Contact Info) Description 05/02/2021 Ophth Exam [facility] Ophthalmology [address] [place] [address] 1st [place] [id number] Corina Ventura MD PhD [address] [facility] [address] [place] [address] Social History Tobacco Use Types [...] on file Legal Sex Male 2:23 AM PLATING TANK OPERATOR Gender Identity Not on file Sexual [...] COVID: Suspected 03/24/2023 03/24/2023 03/24/2023 5:45 PM PLATING TANK OPERATOR COVID19 03/24/2023 03/24/2023 04/08/2023 3:06 AM PLATING TANK OPERATOR COVID: Recovered Comment:Added based on recent COVID infection. 04/08/2023 04/10/2023 07/07/2023 3:06 AM C DT COVID: Suspected 04/10/2024 04/10/2024 04/11/2024 1:24 AM PLATING TANK OPERATOR C. difficile suspected 04/11/2024 04/11/202404/11 1:21 PM PLATING TANK OPERATOR documented as of this encounter Eye [...] arcade Normal Periphery Normal Normal Care Teams Pipe Smoking Machine Offbearer Relationship Specialty Start Date End Date Jeff Strickland MD [address] [address] PCP - General Family Medicine 04/02/18 Chan Nicholas MD [facility] [address] [address] Consulting Physician Gastroenterology 11/24/18 Alan Mccall MD [facility] [address] [address] Referring Physician Nephrology 11/24/18 Lorna Lantigua MD [facility] [address] [address] Consulting Physician Cardiology 11/24/18 07/22/23 Juliette Savage, RN [address] [place] [address] Nurse Navigator 06/04/21 03/14/22 Pepito Haro MD PhD [address] [place] [address] Consulting Physician Neurosurgery 12/03/22 Solagne Guido MD [address] [facility] [address] [place] [address] Referring Physician Cardiovascular Disease 07/23/23 Letha Gil, RN [address] [facility] [address] [place] [address] SHOP Outpatient Rn Teacher 04/14/24 04/18/24 documented as of this encounter
--- OUTSIDE RECORDS SUMMARY | 2024-08-30 18:38 | XMS_ITS | Encounter Summary ---
Author Organization [facility] Address [address] [place] [address] Care Team Providers Care Steam Trap Worker Name Role Phone Deandre Bojorquez MD Unavailable [phone] Jeff Strickland MD Primary Care Provider [phone] Encounter Details Date Type Department Care Team (Late st Contact Info) Description 02/07/2023 Lab Requisition [facility] MAIN LAB [address] [place] [id number] Alan Davenport MD [facility] [place] [address] Social History Tobacco Use Types Packs/Day Years Used Date Smoking Tobacco: Never Smokeless Tobacco: Never Alcohol Use Standard Drinks/Week Comments Not Currently 0 (1 standard drink = 0.6 oz pur e alcohol) socially in past Sex and Gender Information Value Date Recorded Sex Assigned at Male 07/02/2021 2:37 PM CDT Legal Sex Male 10:14 PM CADDIE Gender Identity Male 07/02/2021 2:37 PM CDT [...] Care Team (Late st Contact Info) Description 09/01/2024 10:50 AM CDT Hospital Encounter [facility] [address] [place] [address] Vanessa Medina MD [facility] [address] [address] Cardiac Catheterization 09/01/2024 10:50 AM CDT - 09/01/2024 12:36 PM CDT Surgery [facility] - Cardiac Internship [address] [place] [address] Vanessa Medina MD [address] [place] [address] Staged Percutaneous Coronary Intervention 09/13/2024 10:40 AM CDT Office Visit [facility] - Endocrinology [address] [place] [address], [place] [address] Niraj Turner MD [address] [place] [address] [place] [address] 09/20/2024 2:20 PM CDT Office Visit [facility] - Cardiology [address], [facility] [address] [place] [address] Hannah Goodman MD [address] [facility] [address] [place] [address] 10/13/2024 1:00 PM CDT Office Visit [facility] - Cardiology [address], [place] [address] [place] [phone] Maylin Cutler DO [address] [facility] [address] [place] [phone] documented as of this encounter Procedures Procedure Name Priority Date/Time Associated Diagnosis Comments HOLD HLA SPECIMEN Routine 2023 7:5 8 AM CADDIE documented in this encounter Results * HOLD HLA SPECIMEN (2023 7:58 AM CADDIE) Hold HLA Specimen 02/07/2023 9:01 AM CADDIE [facility] Comment:The Hold HLA specime n has been received into the lab and will be held for 5 years at 4 degrees. Blood BLOOD SPECIMEN / Unknown 2023 7:58 AM CADDIE 02/07/2023 7:59 AM CADDIE us Alan Davenport MD LAB - BLOOD BANK ORDERABLES F inal Result [facility] [address] [place] [address], [facility] documented in this encounter Visit Diagnoses Not on filedocumented in this encounter Care Teams Steam Trap Worker Relationship Specialty Start Date End Date Jeff Strickland MD [address] [place] [address] PCP - General 03/05/18 [place] [address] [place] [address] Orthopedic Surgery 03/28/17 documented as of this encounter
--- OUTSIDE RECORDS SUMMARY | 2024-08-30 18:38 | XMS_ITS | Encounter Summary ---
Author Organization [facility] Address [facility] [place] [address] Care Team Providers Care Ship Self Defense System Mk1 Operator Name Role Phone Deandre Bojorquez MD Unavailable [phone] Jeff Strickland MD Primary Care Provider [phone] Encounter Details Date Type Department Care Team (Late st Contact Info) Description 04/10/2023 Lab Requisition [facility] MAIN LAB [address] [place] [id number] Alan Davenport MD [facility] [place][note 2]1 [facility] [place] [address] Social History Tobacco Use Types Packs/Day Years Used Date Smoking Tobacco: Never Smokeless Tobacco: Never Alcohol Use Standard Drinks/Week Comments Not Currently 0 (1 standard drink = 0.6 oz pur e alcohol) socially in past Sex and Gender Information Value Date Recorded Sex Assigned at Male 07/02/2021 2:37 PM CDT Legal Sex Male 10:14 PM TRIMMER AND REINFORCER Gender Identity Male 07/02/2021 2:37 PM CDT [...] CDT Hospital Encounter [facility] [address] [place] [address] Vanessa Medina MD [facility] [address] Cardiac Catheterization 09/01/2024 10:50 AM CDT - 09/01/2024 12:36 PM CDT Surgery [facility] - Cardiac Java Android Developer [address] [place] [address] Vanessa Medina MD [address] [place] [address] Staged Percutaneous Coronary Intervention 09/13/2024 10:40 AM CDT Office Visit [facility] - Endocrinology [address] [place] [address], [place] [address] Niraj Turner MD [address] [place] [address] Div [place] [address] 09/20/2024 2:20 PM CDT Office Visit [facility] - Cardiology [address], [facility] [address] [place] [address] Hannah Goodman MD [address] [facility] [address] [place] [address] 10/13/2024 1:00 PM CDT Office Visit [facility] - Cardiology [address], [place] [address] [place] [phone] Maylin Cutler DO [address] [facility] [address] [place] [phone] documented as of this encounter Procedures Procedure Name Priority Date/Time Associated Diagnosis Comments HOLD HLA SPECIMEN Routine 04/02/2023 3:0 1 PM TRIMMER AND REINFORCER documented in this encounter Results * HOLD HLA SPECIMEN (04/02/2023 3:01 PM TRIMMER AND REINFORCER) Hold HLA Specimen 04/10/2023 4:01 PM TRIMMER AND REINFORCER [facility] ([facility]) Comment:The Hold HLA specime n has been received into the lab and will be held for 5 years at 4 degrees. Blood BLOOD SPECIMEN / Unknown 04/02/2023 3:01 PM TRIMMER AND REINFORCER 04/10/2023 3:01 PM TRIMMER AND REINFORCER us Alan Davenport MD LAB - BLOOD BANK ORDERABLES F inal Result [facility] ([facility]) [address] [place] [address], [facility] documented in this encounter Visit Diagnoses Not on filedocumented in this encounter Care Teams Ship Self Defense System Mk1 Operator Relationship Specialty Start Date End Date Jeff Strickland MD [address] [place] [address] PCP - General 03/05/18 [place] [address] [place] [address] Orthopedic Surgery 03/28/17 documented as of this encounter
--- OUTSIDE RECORDS SUMMARY | 2024-08-30 18:38 | XMS_ITS | Encounter Summary ---
Author Organization [facility] Address [facility] [place] [address] Care Team Providers Care Hazmat Truck Driver Name Role Phone Deandre Bojorquez MD Unavailable [phone] Jeff Strickland MD Primary Care Provider Encounter Details Date Type Department Care Team (Late st Contact Info) Description 07/31/2023 Lab Requisition [facility] MAIN LAB [address] [place] [phone] Alan Davenport MD [facility] [place] [address] Social History Tobacco Use Types Packs/Day Years Used Date Smoking Tobacco: Never Smokeless Tobacco: Never Alcohol Use Standard Drinks/Week Comments Not Currently 0 (1 standard drink = 0.6 oz pur e alcohol) socially in past Sex and Gender Information Value Date Recorded Sex Assigned at Male 07/02/2021 2:37 PM CDT Legal Sex Male 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 - Cardiac Warehouse Material Handler [address] [place] [address] Vanessa Medina MD [address] [place] [address] Staged Percutaneous Coronary Intervention 09/13/2024 10:40 AM CDT Office Visit [facility] - Endocrinology [address] [place] [address], [place] [address] Niraj Turner MD [address] [place] [address] [place] [address] 09/20/2024 2:20 PM CDT Office Visit [facility] - [facility] [address] [facility], [facility] [address] [place] [address] Hannah Goodman MD [address] [facility] [address] [place] [address] 10/13/2024 1:00 PM CDT [facility] [address] [facility], [place] [address] [place] [phone] Maylin Cutler DO [address] [facility] [address] [place] [address] documented as of this encounter Procedures Procedure Name Priority Date/Time Associated Diagnosis Comments HOLD HLA SPECIMEN Routine 07/23/2023 2:0 5 PM CDT documented in this encounter Results * HOLD HLA SPECIMEN (07/23/2023 2:05 PM CDT) Hold HLA Specimen 07/31/2023 3:32 PM CDT [facility]) Comment:The Hold HLA specime n has been received into the lab and will be held for 5 years at 4 degrees. Blood BLOOD SPECIMEN / Unknown 07/23/2023 2:05 PM CDT 07/31/2023 2:06 PM CDT us Alan Davenport MD LAB - BLOOD BANK ORDERABLES F inal Result [facility] ([facility]) [address] [place], [place] [id number] [place] [address] documented in this encounter Visit Diagnoses Not on filedocumented in this encounter Care Teams Hazmat Truck Driver Relationship Specialty Start Date End Date Jeff Strickland MD [address] [place] [address] PCP - General 03/05/18 [place] [address] [place] [id number] Orthopedic Surgery 03/28/17 documented as of this encounter
--- OUTSIDE RECORDS SUMMARY | 2024-08-30 18:38 | XMS_ITS ---
Author Organization [facility] Address [address] [place] [address] Care Team Providers Care Audit Partner Name Role Phone DONNIE WOOD MD Primary Care Provider Unavaila Sergio Trujillo Unavailable [phone] Encounters Encounter Location Date Provider Diagnosis [facility] [address] [facility] [place] [address] [place] [address] 03/31/2024 Sergio Rivera PLAN OF TREATMENT No Information
--- OUTSIDE RECORDS SUMMARY | 2024-08-30 18:38 | XMS_ITS | Clinical Summary ---
Author Organization [facility] Address [address] [place] [address] Phone Care Team Providers Care Biologics Specialist Name Role Phone Jeff Strickland MD Primary Care Provider [phone] Allergies No known active allergies Medications pantoprazole [...] tablet Take 112 mcg by mouth daily manufacturer agent. Active aspirin (ANGELLA) 325 mg tablet Take 325 mg by mouth daily. Active Vit C-Vit C-Wtvkjs-QvTi-L utein (PRESERVISION) 226 mg-200 unit -5 mg-0.8 [...] Comments Blood Pressure 167/77 02/04/2019 9:16 AM TRAVEL RN Pulse 64 02/04/2019 9:16 AM TRAVEL RN Temperature 36.5 C (97.7 F) 02/04/2019 9:16 AM TRAVEL RN Respiratory Rate 16 02/04/2019 9:16 AM TRAVEL RN Oxygen Saturation 97% 02/04/2019 9:16 AM TRAVEL RN Inhaled Oxygen Concentration - - Weight 113.4 kg (250 lb) 02/04/2019 9:16 AM TRAVEL RN Height 175.3 cm (5' 9) 02/04/2019 9:16 AM TRAVEL RN Body Mass Index 36.92 02/04/2019 9:16 AM TRAVEL RN Plan of Treatment Health Maintenance Due Date [...] exists DIABETES ANNUAL FOOT EXAM 10/18/2022 10/18/2021 COVID-19 Vaccine (2023-2 5 season) 2023 05/05/2020, 04/20/2020, 03/20/2020 INFLUENZA VACCINE (#1) 2024 , 01/17/2020, 01/17/2020, Additional history exists DIABETES HBA1C Q 6 MONTHS 12/16/20242024, 04/23/2024, 04/10/2024, Additional history exists DIABETES ANNUAL RETINAL EXAM 03/09/2025, 12/10/2023, 10/08/2023 DTAP/TDAP/TD VACCINES (3 - T d or Tdap) 04/10/2026 04/10/2016, 04/09/2016 Insurance [facility] BLUE ACCESS/TRUE BLUE PPO [employer] MEDICARE SUPPLEMENT PPO [facility] BLUE ACCESS/TRUE BLUE PPO Care Teams Biologics Specialist Relationship Specialty Start Date End Date Jeff Strickland MD [address] [place] [phone] PCP - General Family Practice 01/01/19
--- OUTSIDE RECORDS SUMMARY | 2024-08-30 18:38 | XMS_ITS ---
Author Organization [facility] Address [facility] [place] [address] Care Team Providers Care Practice Representative Name Role Phone Jeff Strickland MD Primary Care Provider Chan Nicholas MD Unavailable [phone] Alan Mccall MD Unavailable [phone] Pepito Haro MD PhD Unavailable [phone] Solange Guido MD Unavailable [phone] Active Problems Problem Noted Date Diagnosed Date Hypotension, unspecified hypotension type 2024 Subconjunctival hemorrhage of right eye 10/01/19 24 Assessment & Plan (10/01/2023 3:50 PM CDT): Posterior borders viewed easily at slit lamp Educated and reassured patient of findings Artificial tears for comfort PRN with concerns Cystoid macular edema of both eyes 07/02/2023 Assessment & Plan (08/25/2024 3:37 PM CDT): Improved CME OU but paradoxically worsened VA OU. 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 Limited VA potential. No benefit to anti-VEGF. Can follow in [place]. Assessment & Plan (07/05/2024 4:53 PM CDT): [...] damage Assessment & Plan (03/09/2024 6:25 PM CUSTOMER SERVICE LEADER): Vision OD trends mild improvement, though still [...] We discussed that genetic results would not twisting frame changer. Given we have exhausted available [...] 2 weeks and have patient return to [facility] retina in 4 weeks [...] 03/26/2021 Assessment & Plan (03/26/2021 1:17 PM CUSTOMER SERVICE LEADER): Enlarged mild sella turcica on a routine [...] units Assessment & Plan (03/26/2021 1:17 PM CUSTOMER SERVICE LEADER): Chronic, uncontrolled, improving A1c today 7.7 % [...] WNL Assessment & Plan (03/26/2021 1:16 PM CUSTOMER SERVICE LEADER): Pt currently on Levothyroxine 112 mcg oral [...] 11/18/2018 Assessment & Plan (01/21/2019 2:02 PM CUSTOMER SERVICE LEADER): Symptomatic. Will request for esophageal manometry. Continue [...] well Assessment & Plan (03/26/2021 1:16 PM CUSTOMER SERVICE LEADER): On statin therapy Tolerating well Last lipid [...] nephrectomy. 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 [id number] Current Treatment and Therapy Plans No current [...] were not included. Kendall Carl 1955 Referring Shuttle Fixer: Alan Mccall Dialysis Info: NOD GFR 13 Type: Time: (Not currently on dialysis) days Blood Type: O NEG Body mass index is 37.36 kg/m . ALERTS Inspector Cold Working: needs to establish Past Medical History: Diagnosis Date Arthropathy RA. Dr Strickland manages. 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 Becerra in [place]. CKD (chronic kidney disease), stage V Community acquired pneumonia 2018 [facility] hospitalized. Diabetes mellitus 20 years. Lantus pen. Esophageal reflux takes med Hypercholesteremia 5-10 yrs meds Hypertension takes meds Hypothyroidism meds 20 years Kidney stones 5-6 years ago had 2 in the same year. Malignancy right kidney 2012 Obstructive sleep apnea 3 years. [facility]. Cannont remember doctors name Renal cell [...] file Transplant Surgery Clinic Appt w/: Date: P: Nephrology Clinic Appt w/: Date: A/P: Other [...] support system and appropriate discharge plan. Plan: heat treat worker to provide supportive services as needed. Patient appears to be a reasonable candidate for transplant from a psychosocial perspective. -Post transplant arrangement forms are needed prior to being listed. -Updated toxicology results needed, per protocol Psychiatric Consult Recommended: No Transplant Regulatory Agency Director: Joy Tam LCSW RD: 11/09/2019 BMI= [...] use my fitness pal or my food conditioning coach) - Consume no more than 2000 calories a day E-mailed pt's a 2000 calorie, CKD meal plan. Items Still Pending: Clinic, colonoscopy Acute pain of left shoulder 01/25/2019 03/25/2023 Non-cardiac chest pain 11/18/201803/25 Assessment & Plan (01/21/2019 2:02 PM CUSTOMER SERVICE LEADER): The pain is persistent. The patient described [...] has had extensive cardiac workup by the farm facility manager including coronary angiogram. He has chest [...]
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
--- OUTSIDE RECORDS SUMMARY | 2024-08-30 18:38 | XMS_ITS | Encounter Summary ---
Author Organization [facility] Address [facility] [place] [address] Care Team Providers Care Barrel Turner Name Role Phone Deandre Bojorquez MD Unavailable [phone] Jeff Strickland MD Primary Care Provider [phone] Encounter Details Date Type Department Care Team (Late st Contact Info) Description 02/04/2024 Lab Requisition [facility] MAIN LAB [address] [place] [phone] Alan Davenport MD [facility]1 [facility] OF ABD [place] [address] Social History Tobacco Use Types Packs/Day Years Used Date Smoking Tobacco: Never Smokeless Tobacco: Never Alcohol Use Standard Drinks/Week Comments Not Currently 0 (1 standard drink = 0.6 oz pur e alcohol) socially in past Sex and Gender Information Value Date Recorded Sex Assigned at Male 07/02/2021 2:37 PM CDT Legal Sex Male 10:14 PM YEAST WASHER Gender Identity Male 07/02/2021 2:37 PM CDT [...] CDT Hospital Encounter [facility] [address] [place] [address] Vanessa Medina MD [facility] [address] [address] Cardiac Catheterization 09/01/2024 10:50 AM CDT - 09/01/2024 12:36 PM CDT Surgery [facility] - Cardiac Small Wind Energy Installer [address] [place] [address] Vanessa Medina MD [address] [place] [address] Staged Percutaneous Coronary Intervention 09/13/2024 10:40 AM CDT Office Visit [facility] - Endocrinology [address] [place] [address], [place] [address] Niraj Turner MD [address] [place] [address] [place] [address] 09/20/2024 2:20 PM CDT Office Visit [facility] - [facility] [address], [facility] [address] [place] [address] Hannah Goodman MD [address] [facility] [address] [place] [address] 10/13/2024 1:00 PM CDT [facility] [address] [place] [address] [place] [address] Maylin Cutler DO [address] [facility] [address] [place] [phone] documented as of this encounter Procedures Procedure Name Priority Date/Time Associated Diagnosis Comments HOLD HLA SPECIMEN Routine 01/27/2024 3:2 3 PM YEAST WASHER documented in this encounter Results * HOLD HLA SPECIMEN (01/27/2024 3:23 PM YEAST WASHER) Hold HLA Specimen 02/04/2024 4:31 PM YEAST WASHER [facility]) Comment:The Hold HLA specime n has been received into the lab and will be held for 5 years at 4 degrees. Blood BLOOD SPECIMEN / Unknown 01/27/2024 3:23 PM YEAST WASHER 02/04/2024 3:23 PM YEAST WASHER us Alan Davenport MD LAB - BLOOD BANK ORDERABLES F inal Result [facility] [address] [place] [address], [facility] documented in this encounter Visit Diagnoses Not on filedocumented in this encounter Care Teams Barrel Turner Relationship Specialty Start Date End Date Jeff Strickland MD [address] [place] [address] PCP - General 03/05/18 [place] [address] [place] [address] Orthopedic Surgery 03/28/17 documented as of this encounter
--- OUTSIDE RECORDS SUMMARY | 2024-08-30 18:38 | XMS_ITS | Encounter Summary ---
Author Organization [facility] Address [facility] [place] [address] Care Team Providers Care Lamp Assembler Name Role Phone Deandre Bojorquez MD Unavailable [phone] Jeff Strickland MD Primary Care Provider [phone] Encounter Details Date Type Department Care Team (Late st Contact Info) Description 10/28/2023 Lab Requisition [facility] MAIN LAB [address] [place] [address] Alan Davenport MD [facility] [place] [address] Social History Tobacco Use Types Packs/Day Years Used Date Smoking Tobacco: Never Smokeless Tobacco: Never Alcohol Use Standard Drinks/Week Comments Not Currently 0 (1 standard drink = 0.6 oz pur e alcohol) socially in past Sex and Gender Information Value Date Recorded Sex Assigned at Male 07/02/2021 2:37 PM CDT Legal Sex Male 10:14 PM PATHOLOGY SECRETARY/TRANSCRIPTIONIST Gender Identity Male 07/02/2021 2:37 PM CDT [...] CDT Hospital Encounter [facility] [address] [place] [address] Vanessa Medina MD [facility] [address] [address] Cardiac Catheterization 09/01/2024 10:50 AM CDT - 09/01/2024 12:36 PM CDT Surgery [facility] - Cardiac Slicing Machine Operator [address] [place] [address] Vanessa Medina MD [address] [place] [address] Staged Percutaneous Coronary Intervention 09/13/2024 10:40 AM CDT Office Visit [facility] - Endocrinology [address] [place] [address], [place] [address] Niraj Turner MD [address] [place] [address] [place] [address] 09/20/2024 2:20 PM CDT Office Visit [facility] - [facility]iology [address] [facility], [facility] [address] [place] [address] Hannah Goodman MD [address] [facility] OF CARDIOLOGY [address] [place] [address] 10/13/2024 1:00 PM CDT [facility] [address] [facility] [address] [facility], [place] [address] [place] [address] Maylin Cutler DO [address] [facility] [address] [place] [address] documented as of this encounter Procedures Procedure Name Priority Date/Time Associated Diagnosis Comments HOLD HLA SPECIMEN Routine 10/22/2023 3:5 0 PM CDT documented in this encounter Results * HOLD HLA SPECIMEN (10/22/2023 3:50 PM CDT) Hold HLA Specimen 10/28/2023 5:00 PM CDT [facility] ([facility]) Comment:The Hold HLA specime n has been received into the lab and will be held for 5 years at 4 degrees. Blood BLOOD SPECIMEN / Unknown 10/22/2023 3:50 PM CDT 10/28/2023 3:50 PM CDT us Alan Davenport MD LAB - BLOOD BANK ORDERABLES F inal Result [facility] ([facility]) [address] [place], [place] [id number] [place] [address] documented in this encounter Visit Diagnoses Not on filedocumented in this encounter Care Teams Lamp Assembler Relationship Specialty Start Date End Date Jeff Strickland MD [address] [place] [address] PCP - General 03/05/18 [place] [address] [place] [id number] Orthopedic Surgery 03/28/17 documented as of this encounter
--- OUTSIDE RECORDS SUMMARY | 2024-08-30 18:38 | XMS_ITS | Encounter Summary ---
Author Organization [facility] Address [facility]3 [place] [address] Care Team Providers Care Sail Finisher Machine Name Role Phone Deandre Bojorquez MD Unavailable [phone] Jeff Strickland MD Primary Care Provider [phone] Encounter Details Date Type Department Care Team (Late st Contact Info) Description 05/29/2023 Lab Requisition [facility] MAIN LAB [address] [place] [phone] Alan Davenport MD [facility] OF ABD [place] [address] Social History Tobacco Use Types Packs/Day Years Used Date Smoking Tobacco: Never Smokeless Tobacco: Never Alcohol Use Standard Drinks/Week Comments Not Currently 0 (1 standard drink = 0.6 oz pur e alcohol) socially in past Sex and Gender Information Value Date Recorded Sex Assigned at Male 07/02/2021 2:37 PM CDT Legal Sex Male 10:14 PM BOOK SOLICITOR Gender Identity Male 07/02/2021 2:37 PM CDT [...] CDT Hospital Encounter [facility] [address] [place] [address] Vanessa Medina MD [facility] [address] [address] Cardiac Catheterization 09/01/2024 10:50 AM CDT - 09/01/2024 12:36 PM CDT Surgery [facility] - Cardiac Silver Lap Machine Tender [address] [place] [address] Vanessa Medina MD [address] [place] [address] Staged Percutaneous Coronary Intervention 09/13/2024 10:40 AM CDT Office Visit [facility] - Endocrinology [address] [place] [address], [place] [address] Niraj Turner MD [address] [place] [address] [place] [address] 09/20/2024 2:20 PM CDT Office Visit [facility] - Cardiology [address] [facility], [facility] [address] [place] [address] Hannah Goodman MD [address] [facility] OF CARD[facility] [address] [place] [address] 10/13/2024 1:00 PM CDT [facility] [address] [facility] [place] [address] [place] [address] Maylin Cutler DO [address] [facility] [address] [place] [address] documented as of this encounter Procedures Procedure Name Priority Date/Time Associated Diagnosis Comments HOLD HLA SPECIMEN Routine 05/21/2023 9:2 4 AM CDT documented in this encounter Results * HOLD HLA SPECIMEN (05/21/2023 9:24 AM CDT) Hold HLA Specimen 05/29/2023 10:30 AM CDT [facility] ([facility]) Comment:The Hold HLA specime n has been received into the lab and will be held for 5 years at 4 degrees. Blood BLOOD SPECIMEN / Unknown 05/21/2023 9:24 AM CDT 05/29/2023 9:24 AM CDT us Alan Davenport MD LAB - BLOOD BANK ORDERABLES F inal Result [facility] ([facility]) [address] [place], [place] [id number] [place] [address] documented in this encounter Visit Diagnoses Not on filedocumented in this encounter Care Teams Sail Finisher Machine Relationship Specialty Start Date End Date Jeff Strickland MD [address] [place] [address] PCP - General 03/05/18 [place] [address] [place] [id number] Orthopedic Surgery 03/28/17 documented as of this encounter
--- OUTSIDE RECORDS SUMMARY | 2024-08-30 18:38 | XMS_ITS | Encounter Summary ---
Author Organization [facility] Address [facility] [place] [address] Care Team Providers Care Liaison Planner Name Role Phone Deandre Bojorquez MD Unavailable [phone] Jeff Strickland MD Primary Care Provider [phone] Encounter Details Date Type Department Care Team (Late st Contact Info) Description 03/12/2024 Lab Requisition [facility] [address] [place] [phone] Alan Davenport MD [facility] [place] [address] Social History Tobacco Use Types Packs/Day Years Used Date Smoking Tobacco: Never Smokeless Tobacco: Never Alcohol Use Standard Drinks/Week Comments Not Currently 0 (1 standard drink = 0.6 oz pur e alcohol) socially in past Sex and Gender Information Value Date Recorded Sex Assigned at Male 07/02/2021 2:37 PM CDT Legal Sex Male 10:14 PM PELLETISING EXTRUDER OPERATOR Gender Identity Male 07/02/2021 2:37 PM [...] CDT Hospital Encounter [facility] [address] [place] [address] Vanessa Medina MD [facility] [address] Cardiac Catheterization 09/01/2024 10:50 AM CDT - 09/01/2024 12:36 PM CDT Surgery [facility] - Cardiac [facility] [address] [place] [address] Vanessa Medina MD [address] [place] [address] Staged Percutaneous Coronary Intervention 09/13/2024 10:40 AM CDT Office Visit [facility] - Endocrinology [address] [place] [address], [place] [address] Niraj Turner MD [address] [place] [address] [place] [address] 09/20/2024 2:20 PM CDT Office Visit [facility] [address] [facility] [address] [place] [address] Hannah Goodman MD [address] [facility] [address] [place] [address] 10/13/2024 1:00 PM CDT Office Visit [facility] - Cardiology [address], [place] [address] [place] [phone] Maylin Cutler DO [address] [facility] [address] [place] [phone] documented as of this encounter Procedures Procedure Name Priority Date/Time Associated Diagnosis Comments HOLD HLA SPECIMEN Routine 03/05/2024 1:4 0 PM PELLETISING EXTRUDER OPERATOR documented in this encounter Results * HOLD HLA SPECIMEN (03/05/2024 1:40 PM PELLETISING EXTRUDER OPERATOR) Hold HLA Specimen 03/12/2024 3:00 PM PELLETISING EXTRUDER OPERATOR [facility] ([facility] Comment:The Hold HLA specime n has been received into the lab and will be held for 5 years at 4 degrees. Blood BLOOD SPECIMEN / Unknown 03/05/2024 1:40 PM PELLETISING EXTRUDER OPERATOR 03/12/2024 1:40 PM PELLETISING EXTRUDER OPERATOR us Alan Davenport MD LAB - BLOOD BANK ORDERABLES F inal Result [facility] ([facility]) [address] [place] [address], [facility] documented in this encounter Visit Diagnoses Not on filedocumented in this encounter Care Teams Liaison Planner Relationship Specialty Start Date End Date Jeff Strickland MD [address] [place] [address] PCP - General 03/05/18 [place] [address] [place] [address] Orthopedic Surgery 03/28/17 documented as of this encounter
--- OUTSIDE RECORDS SUMMARY | 2024-08-30 18:38 | XMS_ITS | Patient Health Record ---
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 He denies tobacco, alcohol, or illicit drug abuse The patient is retired. 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 He denies tobacco, alcohol, or illicit drug abuse The patient is retired. 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 He denies tobacco, alcohol, or illicit drug abuse The patient is retired. 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 He denies tobacco, alcohol, or illicit drug abuse The patient is retired. 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 He denies tobacco, alcohol, or illicit drug abuse The patient is retired. 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 He denies tobacco, alcohol, or illicit drug abuse The patient is retired. 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 He denies tobacco, alcohol, or illicit drug abuse The patient is retired. 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 He denies tobacco, alcohol, or illicit drug abuse The patient is retired. 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 He denies tobacco, alcohol, or illicit drug abuse The patient is retired. 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 He denies tobacco, alcohol, or illicit drug abuse The patient is retired. 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 He denies tobacco, alcohol, or illicit drug abuse The patient is retired. 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 He denies tobacco, alcohol, or illicit drug abuse The patient is retired. 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 He denies tobacco, alcohol, or illicit drug abuse The patient is retired. 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) Active confirmed Localized, primary osteoarthritis of the shoulder region (830661753) Problem Pain in left hip (M25.552) Active confirmed Pain of left hi p joint (finding) (993939921206155) Problem Spondylosis without myelopathy or radiculopathy, lumbar region (M47.816) Active confirmed Lumbosacral spondylosis without myelopathy (53327191) Problem Other intervertebral disc degeneration, lumbar region (M51.36) Active confirmed Degeneration of lumbar intervertebral disc (10806044) Problem Radiculopathy, lumbar region (M54.16) Active confirmed Lumbar radiculopathy (480507616) Problem Radiculopathy, lumbosacral region (M54.17) Active confirmed Lumbosacral radiculopathy (0992173) Problem Osseous stenosis of neural canal of lumbar region (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) Active confirmed Spinal stenosis of lumbar region (00169356) 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 (Z79.01) Active confirmed Long-term curre nt use of anticoagulant (260277725) Problem Other intervertebral disc degeneration, lumbar region [...] Date Provider Diagnosis [facility] [address] [place] [phone] 09/29/2023 Segrio Stynowick Radiculopathy, lumba r region M54.16 ; Other chest pain R07.89 ; Other intervertebral disc degeneration, lumbar region M51.36 ; 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 ; Spondylosis without myelopathy or radiculopathy, lumbar region M47.816 and care home (current) use of anticoagulants Z79.01 [facility] [address] [place] [phone] 01/12/2024 Sergio Stynowick Radiculopathy, lumba r region M54.16 ; Radiculopathy, lumbosacral region M54.17 ; Other chest pain R07.89 ; Other intervertebral disc degeneration, lumbar region M51.36 ; 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 ; Spondylosis without myelopathy or radiculopathy, lumbar region M47.816 and 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 of anticoagulants Z79.01 [facility] [address] [place] [phone] 01/19/2024 Sergio Stynowick Radiculopathy, lumba r region M54.16 ; Other intervertebral disc degeneration, lumbar region with discogenic back pain and lower extremity pain M51.362 and 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 [facility] [address] [place] [phone] 02/03/2024 Sergio Rivera Other chest pain R07.89 ; Pain in left knee M25.562 ; Radiculopathy, lumbar region M54.16 ; Other intervertebral disc degeneration, lumbar region M51.36 ; 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 ; Spondylosis without myelopathy or radiculopathy, lumbar region M47.816 and care home (current) use of anticoagulants Z79.01 [facility] [address] [place] [phone] 03/03/2024 Sergio Stradha Pain in left knee M25.562 ; Primary osteoarthritis, unspecified shoulder M19.019 ; Other chest pain R07.89 ; Radiculopathy, lumbar region M54.16 ; Other intervertebral disc degeneration, lumbar region M51.36 ; 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 ; Spondylosis without myelopathy or radiculopathy, lumbar region M47.816 ; 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 of anticoagulants Z79.01 ; Pain in right shoulder M25.511 and Pain in left shoulder M25.512 [facility] [address] [place] [phone] 03/08/2024 Sergio Rivera Primary osteoarthritis, unspecified shoulder M19.019 [facility] [address] [place] [phone] 03/31/2024 Sergio Rivera ASSESSMENTS Encounter Date Diagnosis [...] radiculopathy, lumbar region (ICD-10 - M47.816) 09/29/2023 care home (current) use of anticoagulants (ICD-10 - Z79.01) 01/12/2024 Spondylosis without myelopathy or radiculopathy, lumbar region (ICD-10 - M47.816) 02/03/2024 Spondylosis without myelopathy or radiculopathy, lumbar region (ICD-10 - M47.816) 03/03/2024 Osseous stenosis of neural canal of lumbar region (ICD-10 - M99.33) 01/12/2024 care home (current) use of anticoagulants (ICD-10 - Z79.01) The patient was instructed to discontinue aspirin for 6 days prior to the procedure. I made the patient aware that he will be at an increased risk for a thromboembolic event during this time and he is willing to accept this risk. The patient was instructed to notify his primary care physician and/or sql database administrator to obtain clearance prior to discontinuing this medication. 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
--- OUTSIDE RECORDS SUMMARY | 2024-08-30 18:38 | XMS_ITS | Encounter Summary ---
Author Organization [facility] Address [facility]3 [place] [address] Care Team Providers Care Drill Hand Name Role Phone Deandre Bojorquez MD Unavailable Jeff Strickland MD Primary Care Provider [phone] Encounter Details Date Type Department Care Team (Late st Contact Info) Description 04/29/2024 Lab Requisition [facility] [address] [place] [phone] Alan Davenport MD [facility] [place] [address] Social History Tobacco Use Types Packs/Day Years Used Date Smoking Tobacco: Never Smokeless Tobacco: Never Alcohol Use Standard Drinks/Week Comments Not Currently 0 (1 standard drink = 0.6 oz pur e alcohol) socially in past Sex and Gender Information Value Date Recorded Sex Assigned at Male 07/02/2021 2:37 PM CDT 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 Gender Identity Male 07/02/2021 2:37 PM [...] CDT Hospital Encounter [facility] [address] [place] [address] Vanessa Medina MD [facility]4 [address] [address] Cardiac Catheterization 09/01/2024 10:50 AM CDT - 09/01/2024 12:36 PM CDT Surgery [facility] - Cardiac Self Propelled Dredge Operator [address] [place] [address] Vanessa Medina MD [address] [place] [address] Staged Percutaneous Coronary Intervention 09/13/2024 10:40 AM CDT Office Visit [facility] - Endocrinology [address] [place] [address], [place] [address] Niraj Turner MD [address] [place] [address] Div [place] [address] 09/20/2024 2:20 PM CDT Office Visit [facility] - [facility] [address] [facility] [address] [place] [address] Hannah Goodman MD [address] [facility] [address] [place] [address] 10/13/2024 1:00 PM CDT Office Visit [facility] - Cardiology [address] [facility], [place] [address] [place] [address] Maylin Cutler DO [address] [facility] [address] [place] [address] documented as of this encounter Procedures Procedure Name Priority Date/Time Associated Diagnosis Comments HOLD HLA SPECIMEN Routine 04/27/2024 1:4 8 PM CDT documented in this encounter Results * HOLD HLA SPECIMEN (04/27/2024 1:48 PM CDT) Hold HLA Specimen 04/29/2024 3:02 PM CDT [facility] ([facility]) Comment:The Hold HLA specime n has been received into the lab and will be held for 5 years at 4 degrees. Blood BLOOD SPECIMEN / Unknown 04/27/2024 1:48 PM CDT 04/29/2024 1:49 PM CDT us Alan Davenport MD LAB - BLOOD BANK ORDERABLES F inal Result [facility] ([facility]) [address] [place], [place] [id number] [place] [address] documented in this encounter Visit Diagnoses Not on filedocumented in this encounter Care Teams Drill Hand Relationship Specialty Start Date End Date Jeff Strickland MD [address] [place] [address] PCP - General 03/05/18 [place] [address] [place] [id number] Orthopedic Surgery 03/28/17 documented as of this encounter
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
--- OUTSIDE RECORDS SUMMARY | 2024-08-30 18:38 | XMS_ITS ---
Author Organization [facility] Address [address] [place] [address] [place] [address] Care Team Providers Care High Rigger Name Role Phone DONNIE WOOD MD Primary Care Provider Lance Sergio Trujillo Unavailable [phone] ALLERGIES No Known Allergies REASON FOR VISIT [...] retired. He p reviously worked as a [place] worker. 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 He [...] Location Date Provider Diagnosis [facility] [address] 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 John's, Lennon's and Gaenslen's are positive bilaterally. There is [...]
--- OUTSIDE RECORDS SUMMARY | 2024-08-30 18:38 | XMS_ITS | Encounter Summary ---
Author Organization [facility] Address [facility] [place] [address] Care Team Providers Care Custodian Athletic Equipment Name Role Phone Deandre Bojorquez MD Unavailable [phone] Jeff Strickland MD Primary Care Provider [phone] Encounter Details Date Type Department Care Team (Late st Contact Info) Description 11/21/2023 Lab Requisition [facility] [address] [place] [phone] Alan Davenport MD [facility] OF ABD [place] [address] Social History Tobacco Use Types Packs/Day Years Used Date Smoking Tobacco: Never Smokeless Tobacco: Never Alcohol Use Standard Drinks/Week Comments Not Currently 0 (1 standard drink = 0.6 oz pur e alcohol) socially in past Sex and Gender Information Value Date Recorded Sex Assigned at Male 07/02/2021 2:37 PM CDT 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 Gender Identity Male 07/02/2021 2:37 PM [...] CDT Hospital Encounter [facility] [address] [place] [address] Vanessa Medina MD [facility] [address] [address] Cardiac Catheterization 09/01/2024 10:50 AM CDT - 09/01/2024 12:36 PM CDT Surgery [facility] - Cardiac Pig Machine Crane Operator [address] [place] [address] Vanessa Medina MD [address] [place] [address] Staged Percutaneous Coronary Intervention 09/13/2024 10:40 AM CDT Office Visit [facility] - Endocrinology [address] [place] [address], [place] [address] Niraj Turner MD [address] [place] [address] [place] [address] 09/20/2024 2:20 PM CDT Office Visit [facility] [address] [facility] [address] [place] [address] Hannah Goodman MD [address] [facility] C[facility] [address] [place] [address] 10/13/2024 1:00 PM CDT [facility] [address] [place] [address] [place] [address] Maylin Cutler DO [address] [facility] [address] [place] [address] documented as of this encounter Procedures Procedure Name Priority Date/Time Associated Diagnosis Comments HOLD HLA SPECIMEN Routine 11/18/2023 12: 16 PM CDT documented in this encounter Results * HOLD HLA SPECIMEN (11/18/2023 12:16 PM CDT) Hold HLA Specimen 11/21/2023 1:31 PM CDT [facility] ([facility]) Comment:The Hold HLA specime n has been received into the lab and will be held for 5 years at 4 degrees. Blood BLOOD SPECIMEN / Unknown 11/18/2023 12:16 PM CDT 11/21/2023 12:17 PM CDT us Alan Davenport MD LAB - BLOOD BANK ORDERABLES F inal Result [facility] ([facility]) [address] documented in this encounter Visit Diagnoses Not on filedocumented in this encounter Care Teams Custodian Athletic Equipment Relationship Specialty Start Date End Date Jeff Strickland MD [address] [place] [address] PCP - General 03/05/18 [place] [address] [address] [place] [id number] Orthopedic Surgery 03/28/17 documented as of this encounter
--- OUTSIDE RECORDS SUMMARY | 2024-08-30 18:38 | XMS_ITS ---
Author Organization [facility] Address [address] [place] [address] [place] [address] Care Team Providers Care Wilton Weaver Name Role Phone DONNIE WOOD MD Primary Care Provider Robba Sergio Trujillo Unavailable [phone] REASON FOR VISIT BILAT SHOULDER JOINT INJECTION (NEED XRAY - BEING DONE AT 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 X-ray time: 6 seconds Progress [...] patient's typical axial low back pain. John's, [place]'s and Gaenslen's are positive bilaterally. There is [...] and Follow-up: Follow-up Plan documen wendy:: Yes [facility] Quality 2020: [facility] Documented:: Compliant
--- OUTSIDE RECORDS SUMMARY | 2024-08-30 18:38 | XMS_ITS | Encounter Summary ---
Author Organization [facility] Address [facility] [place] [address] Care Team Providers Care Suspension Cord Tier Name Role Phone Deandre Bojorquez MD Unavailable [phone] Jeff Strickland MD Primary Care Provider [phone] Encounter Details Date Type Department Care Team (Late st Contact Info) Description 09/30/2023 Lab Requisition [facility] [address] [place] [phone] Alan Davenport MD [facility] OF ABD [place] [address] Social History Tobacco Use Types Packs/Day Years Used Date Smoking Tobacco: Never Smokeless Tobacco: Never Alcohol Use Standard Drinks/Week Comments Not Currently 0 (1 standard drink = 0.6 oz pur e alcohol) socially in past Sex and Gender Information Value Date Recorded Sex Assigned at Male 07/02/2021 2:37 PM CDT 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 Gender Identity Male 07/02/2021 2:37 PM [...] Assessment Author No 08/04/2020 12:15 PM CDT oMnique Suárez RN * Does person have difficulty [...] CDT Hospital Encounter [facility] [address] [place] [address] Vanessa Medina MD [facility] [address] [address] Cardiac Catheterization 09/01/2024 10:50 AM CDT - 09/01/2024 12:36 PM CDT Surgery [facility] - Cardiac Double End Tenon Operator [address] [place] [address] Vanessa Medina MD [address] [place] [address] Staged Percutaneous Coronary Intervention 09/13/2024 10:40 AM CDT Office Visit [facility] - Endocrinology [address] [place] [address], [place] [address] Niraj Turner MD [address] [place] [address] [place] [address] 09/20/2024 2:20 PM CDT Office Visit [facility] - Cardiology [address] [facility] [address] [place] [address] Hannah Goodman MD [address] [facility] OF CARDIOLOGY [address] [place] [address] 10/13/2024 1:00 PM CDT [facility] [address] [facility] [place] [address] [place] [address] Maylin Cutler DO [address] [facility] [address] [place] [address] documented as of this encounter Procedures Procedure Name Priority Date/Time Associated Diagnosis Comments HOLD HLA SPECIMEN Routine 09/24/2023 3:2 7 PM CDT documented in this encounter Results * HOLD HLA SPECIMEN (09/24/2023 3:27 PM CDT) Hold HLA Specimen 09/30/2023 4:32 PM CDT [facility] ([facility]) Comment:The Hold HLA specime n has been received into the lab and will be held for 5 years at 4 degrees. Blood BLOOD SPECIMEN / Unknown 09/24/2023 3:27 PM CDT 09/30/2023 3:27 PM CDT us Alan Davenport MD LAB - BLOOD BANK ORDERABLES F inal Result [facility] ([facility]) [address] [place], [place] [address] [place] [address] documented in this encounter Visit Diagnoses Not on filedocumented in this encounter Care Teams Suspension Cord Tier Relationship Specialty Start Date End Date Jeff Strickland MD [address] [place] [address] PCP - General 03/05/18 [place] [address] [place] [id number] Orthopedic Surgery 03/28/17 documented as of this encounter
--- OUTSIDE RECORDS SUMMARY | 2024-08-30 18:38 | XMS_ITS | Encounter Summary ---
Author Organization [facility] Address [facility]3 [place] [address] Care Team Providers Care Prosthodontist Name Role Phone Deandre Bojorquez MD Unavailable [phone] Jeff Strickland MD Primary Care Provider [phone] Encounter Details Date Type Department Care Team (Late st Contact Info) Description 06/25/2024 Lab Requisition [facility] [address] [place] [id number] Alan Davenport MD [facility] [place] [address] Social History Tobacco Use Types Packs/Day Years Used Date Smoking Tobacco: Never Smokeless Tobacco: Never Alcohol Use Standard Drinks/Week Comments Not Currently 0 (1 standard drink = 0.6 oz pur e alcohol) socially in past Sex and Gender Information Value Date Recorded Sex Assigned at Male 07/02/2021 2:37 PM CDT 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 Gender Identity Male 07/02/2021 2:37 PM CDT [...] CDT Hospital Encounter [facility] [address] [place] [address] Vanessa Medina MD [facility] [address] [address] Cardiac Catheterization 09/01/2024 10:50 AM CDT - 09/01/2024 12:36 PM CDT Surgery [facility] - [facility]iac Precinct Police Captain [address] [place] [address] Vanessa Medina MD [address] [place] [address] Staged Percutaneous Coronary Intervention 09/13/2024 10:40 AM CDT Office Visit [facility] - Endocrinology [address] [place] [address], [place] [address] Niraj Turner MD [address] [place] [address] [place] [address] 09/20/2024 2:20 PM CDT Office Visit [facility] - Cardiology [address] [facility], [facility] [address] [place] [address] Hannah Goodman MD [address] [facility] [address] [place] [address] 10/13/2024 1:00 PM CDT Office Visit [facility] - [facility] [address] [facility], [place] [address] [place] [phone] Maylin Cutler DO [address] [facility] [address] [place] [address] documented as of this encounter Procedures Procedure Name Priority Date/Time Associated Diagnosis Comments HOLD HLA SPECIMEN Routine 06/22/2024 11: 05 AM CDT documented in this encounter Results * HOLD HLA SPECIMEN (06/22/2024 11:05 AM CDT) Hold HLA Specimen 06/25/2024 12:32 PM CDT [facility]) Comment:The Hold HLA specime n has been received into the lab and will be held for 5 years at 4 degrees. Blood BLOOD SPECIMEN / Unknown 06/22/2024 11:05 AM CDT 06/25/2024 11:05 AM CDT us Alan Davenport MD LAB - BLOOD BANK ORDERABLES F inal Result [facility] ([facility]) [address] documented in this encounter Visit Diagnoses Not on filedocumented in this encounter Care Teams Prosthodontist Relationship Specialty Start Date End Date Jeff Strickland MD [address] [place] [address] PCP - General 03/05/18 [place] [address] [place] [id number] Orthopedic Surgery 03/28/17 documented as of this encounter
--- OUTSIDE RECORDS SUMMARY | 2024-08-30 18:38 | XMS_ITS | Encounter Summary ---
Author Organization [facility] Address [address] [facility] [place] [address] Care Team Providers Care Energy Efficiency Finance Manager Name Role Phone Deandre Bojorquez MD Unavailable [phone] Jeff Strickland MD Primary Care Provider [phone] Reason for Referral * Radiology Services (Routine) - Open Specialty Diagnoses / Procedures Referred By Contac t Referred To Contact Diagnoses PAD (peripheral artery disease) Procedures VAS ARTERIAL ANKLE ARM INDEX Hannah Goodman MD [address] [facility] DIV OF CARDIOLOGY [address] [place] [address] Phone: tel: fax: Referral ID Status Reason Start Date Expiration Date Visits Re quested Visits Authorized [id number] Open 08/30/2024 08/30/2025 1 1 Reason for Visit * Reason Comments Establish Care Encounter Details Date Type Department Care Team (Late st Contact Info) Description 08/30/2024 10:00 AM CDT Office Visit [facility] - Cardiology [address] [facility], [place] [address] [place] [address] Hannah Goodman MD [address] [facility] DIV OF CARDIOLOGY [address] [place] [phone] PAD (peripheral artery disease) (Primary Dx); Arterial leg ulcer (HCC); ESRD on PD Social History Tobacco Use Types Packs/Day Years [...] PM CDT Legal Sex 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 Gender Identity Male 07/02/2021 2:37 PM CDT Sexual Orientation Straight 07/02/2021 2: 37 PM CDT documented as of this encounter Last Filed Vital Signs Vital Sign Reading Time Taken Comments Blood Pressure 138/76 08/30/2024 9:21 AM CDT Pulse 53 08/30/2024 9:21 AM CDT Temperature - - Respiratory Rate - - Oxygen Saturation 96% 08/30/2024 9:21 AM CDT Inhaled Oxygen Concentration - - Weight 119.7 kg (264 lb) 08/30/2024 9:21 AM CDT Height 172.7 cm (5' 8) 08/30/2024 9:21 AM CDT Body Mass Index 40.14 08/30/2024 9:21 AM CDT documented in this encounter Functional Status * Is person deaf or have serious hearing difficulty? Answer Date of Assessment Author No 08/18/2024 2:56 PM CDT Satinder Tenorio RN * Is person blind or have serious difficulty seeing? Answer Date of Assessment Author No 08/18/2024 2:56 PM CDT Satinder Tenorio RN * Does person have serious difficulty walking/climbing stairs? Answer Date of Assessment Author No 08/18/2024 2:56 PM CDT Satinder Tenorio RN * Does person have difficulty dressing/bathing? Answer Date of Assessment Author No 08/18/2024 2:56 PM CDT Satinder Tenorio RN * Does person have difficulty doing errands alone? Answer Date of Assessment Author No 08/18/2024 2:56 PM CDT Satinder Tenorio RN documented as of this encounter Mental Status * Does person have difficulty concentrating/remembering/making decisions? Answer Entry Date Author No 08/18/2024 2:56 PM CDT Satinder Tenorio RN documented in this encounter Patient Instructions * Patient Instructions* Hannah Goodman MD - 08/30/2024 1:05 PM CDT 69-year-old male with a past medical history of coronary disease status post PCI to LAD [planned PCI with Dr. Medina on August 26] ESRD on peritoneal dialysis, prekidney transplant evaluation, HFpEF, peripheral artery disease, type 2 diabetes, hyperlipidemia, hypertension was referred to me for nonhealing left great toe ulcer after having ingrowing of toenail. Patient underwent left leg AT-DP and PTangioplasty (chocolate and cutting balloon). Post intervention, patient has opplerable AT and PT but start having tingling and neuropathic pain upto knee and left leg swelling, likely due to reperfusion. Patient denies any progression of gangrene. Patient is following Areli Herzog. # CL TI [chronic limb threatening ischemia] # Apollo class V # Peripheral artery disease -I personally interpreted TWYLA from May 2024 [done outside] which showed bilateral TBI was 0.16 and 0.17 with noncompressible TWYLA (pre intervention). - pending post intervention TWYLA/TBI - Great toe gangrene is stable. [] Continue with aspirin 80 mg daily [] Continue Plavix 75 mg daily [] Continue with atorvastatin 80 mg daily [] recommend gabapentin for neuropathic pain and can do some leg elevation for leg swelling. [] Instructions were given by Yael [ ] staged PCI as per Dr. Medina [ ] will continue to follow in 2 to 3 weeks [ ] f/u Areli Herzog, plan discussed with her. Other cardiac issues as per Dr. Medina. RTC In 2 to 3 weeks. documented in this encounter Progress Notes * Hannah Goodman MD - 08/30/2024 1:05 PM CDT Images from the original note were not included. Yanna Goodman MD MPH Dry Room Operator, Endovascular Interventionalist, Pool Hand, Division of Cardiology Department of Internal Medicine [facility] phone: [phone] Clinic [facility] OUTPATIENT Interventional/Endovascular CARDIOLOGY CLINIC PATIENT:Kendall Carl : 1955 Referring MD: No ref. provider found PCP: Jeff Strickland MD Chief Complaint: CLTI History of Present Illness: Kendall Carl is a 69 year old male with c/o CLTI. 69-year-old male with a past medical history of coronary disease status post PCI to LAD [planned PCI with Dr. Medina on August 26] ESRD on peritoneal dialysis, prekidney transplant evaluation, HFpEF, peripheral artery disease, type 2 diabetes, hyperlipidemia, hypertension was referred to me for nonhealing left great toe ulcer after having ingrowing of toenail. Patient underwent left leg AT-DP and PTangioplasty (chocolate and cutting balloon). Post intervention, patient has opplerable AT and PT but start having tingling and neuropathic pain upto knee and left leg swelling, likely due to reperfusion. Patient denies any progression of gangrene. Patient is following Areli Herzog. Past Medical History[1] Medications[2] PHYSICAL EXAM: BP 138/76 Pulse 53 Ht 1.727 m (5' 8) Wt 119.7 kg (264 lb) SpO2 96% Body mass index is 40.14 kg/m??. GENERAL: No acute distress, pleasant, appears stated age alert and oriented x 3 SKIN: Warm and dry with good turgor EYES: PERRLA, EOMI LUNGS: Clear to auscultation, no wheezing, crackles, or rales HEAD: Normocephalic atraumatic, Moist mucus membranes NECK: No JVD, no carotid bruits HEART: Regular rate and rhythm, S1, S2. no murmur; no gallups or rubs EXTREMITIES: No edema, cyanosis or clubbing. NEURO: no focal deficit. DATA REVIEWED: LABORATORY AND CARDIODIAGNOSTIC STUDIES: CBC: Recent Labs Component Name 08/19/24 0123 08/18/24 1001 07/21/24 1026 WBC 11.6* 10.5 7.7 HGB 9.2* 10.8* 8.8* HCT 28.0* 32.4* 27.3* MCV 88.6 88.8 93.2 BMP: Recent Labs Component Name 08/19/24 0123 08/18/24 1011 07/21/24 1026 NA 137 137 140 CL 97* 98 101 CO2 23 28 27 BUN 39* 34* 32* CREATININE 9.53* 8.79* 8.71* CALCIUM 7.9* 8.2* 8.4 Lipids Lab Results Component Value Date/Time CHOL 112 06/16/2024 04:15 PM CHOL 140 04/23/2024 12:24 PM CHOL 173 01/14/2022 09:54 AM CHOL 187 06/15/2020 09:59 AM TRIG 134 06/16/2024 04:15 PM TRIG 268 (H) 04/23/2024 12:24 PM TRIG 706 (H) 01/14/2022 09:54 AM TRIG 822 (H) 06/15/2020 09:59 AM HDL 32 (L) 06/16/2024 04:15 PM HDL 36 (L) 04/23/2024 12:24 PM HDL 21 (L) 01/14/2022 09:54 AM HDL 25 (L) 06/15/2020 09:59 AM LDLCALC 53 06/16/2024 04:15 PM LDLCALC 69 04/23/2024 12:24 PM LDLCALC 01/14/2022 09:54 AM Comment: Calculation of LDL value was not performed because triglyceride concentrations greater than 400 mg/dL render the calculated value invalid. For this reason, the LDL Direct assay for measurement of LDLCholesterol has been performed (per laboratory protocol). LDLCALC 06/15/2020 09:59 AM Comment: Calculation of LDL value was not performed because triglyceride concentrations greater than 400 mg/dL render the calculated value invalid. For this reason, the LDL Direct assay for measurement of LDLCholesterol has been performed (per laboratory protocol). Hemoglobin A1c: Recent Labs Component Name 06/16/24 1615 04/23/24 1224 01/14/22 0954 05/17/20 1319 11/09/19 1013 HGBA1C 6.2* 6.9* 8.7* - 7.5* EAG 131 - 203 - 169 - = values in this interval not displayed. NT-Pro BNP No results found for: NTPROBNP PT/INR Lab Results Component Value Date/Time PT 12.8 07/28/2020 08:14 AM INR 1.0 07/28/2020 08:14 AM Cardiac workup: As outlines above in HPI Cardiac work up: as mentioned below. Assessment 1. PAD (peripheral artery disease) 2. Arterial leg ulcer (HCC) 3. ESRD on PD Plan: Patient Instructions 69-year-old male with a past medical history of coronary disease status post PCI to LAD [planned PCI with Dr. Medina on August 26] ESRD on peritoneal dialysis, prekidney transplant evaluation, HFpEF, peripheral artery disease, type 2 diabetes, hyperlipidemia, hypertension was referred to me for nonhealing left great toe ulcer after having ingrowing of toenail. Patient underwent left leg AT-DP and PTangioplasty (chocolate and cutting balloon). Post intervention, patient has opplerable AT and PT but start having tingling and neuropathic pain upto knee and left leg swelling, likely due to reperfusion. Patient denies any progression of gangrene. Patient is following Areli Herzog. # CL TI [chronic limb threatening ischemia] # Apollo class V # Peripheral artery disease -I personally interpreted TWYLA from May 2024 [done outside] which showed bilateral TBI was 0.16 and 0.17 with noncompressible TWYLA (pre intervention). - pending post intervention TWYLA/TBI - Great toe gangrene is stable. [] Continue with aspirin 80 mg daily [] Continue Plavix 75 mg daily [] Continue with atorvastatin 80 mg daily [] recommend gabapentin for neuropathic pain and can do some leg elevation for leg swelling. [] Instructions were given by Yael [ ] staged PCI as per Dr. Medina [ ] will continue to follow in 2 to 3 weeks [ ] f/u Areli Herzog, plan discussed with her. Other cardiac issues as per Dr. Medina. RTC In 2 to 3 weeks. All questions/concerns were answered to the patient's satisfaction and we are all in agreement withthis plan proposed above understanding all the risks and benefits. I spent 30 minutes today. This total amount of time was spent including preparation for the patient's appointment, reviewing and interpreting the medical records/chart review, laboratory data, and imaging data as well. Significant proportion of the time was also spent in [id number] interaction with the patient as well as formulating a plan for management. Thank you for allowing us to participate in the care of your patient and please do not hesitate to reach out to us if any questions or concerns. Yanna Goodman MD MPH [1] Past Medical History: Diagnosis Date Arthropathy Dr Strickland manages. CHF (congestive heart failure) ([facility]) 2 yrs ago Javascript Developer is Dr. Becerra in [place]. CKD (chronic kidney disease), stage V ([facility]) Community acquired pneumonia 2018 [facility] hospitalized. Diabetes mellitus (HCC) 20 years. [place]. Manager Of Hospital Dr. Davis at [place]. 03/26/21 last seen. Esophageal reflux takes med ESRD (end stage renal disease) (HCC) on PD as of 11/10/20 ESRD on peritoneal dialysis ([facility]) Hypercholesteremia 5-10 yrs meds Hypertension 40's takes meds. Hypothyroidism meds 20 years Kidney stones 5-6 years ago had 2 in the same year. No urologist. Malignancy (HCC) right kidney 2012 Obstructive sleep apnea [address] Sergey Miller remember doctors name SHABNAM on CPAP Renal cell carcinoma (HCC) [address] [place] Pruett surgeon. followed up every 6 months until released. [2] Current Outpatient Medications Medication Sig Dispense Refill amoxicillin-clavulanate (Augmentin) 875-125 MG tablet Take 1 (one) tablet by mouth 2 times daily Aspirin Low Dose 81 MG tablet TAKE 1 TABLET BY MOUTH ONCE DAILY 90 tablet 3 atorvastatin (Lipitor) 80 MG tablet Take 1 (one) tablet by mouth once daily 90 tablet 3 B Zrprwcv-H-Wnwtt Acid (Dialyvite 800) 0.8 MG 1 tablet Orally Once a day for 30 day(s) Basaglar KwikPen (BASAGLAR) pen Inject 55 (fifty five) Units subcutaneously 2 times daily 30 mL 0 carvedilol (Coreg) 25 MG tablet Take 1 (one) tablet by mouth 2 times daily Cholecalciferol (VITAMIN D-3 PO) Take 2,000 Units by mouth cloNIDine (Catapres) 0.2 MG/24HR patch Apply 1 (one) patch to skin every 7 days (once a week) clopidogrel (plaVIX) 75 MG tablet Take 1 (one) tablet by mouth once daily 90 tablet 3 dilTIAZem ER 12hr 60 MG capsule Take 2 (two) capsules by mouth 2 times daily doxycycline hyclate (Vibramycin) 100 MG capsule Take 1 (one) capsule by mouth every 12 hours doxycycline hyclate (Vibramycin) 100 MG capsule Take 1 (one) capsule by mouth 2 times daily fluticasone propionate (FLONASE) 50 MCG/ACT nasal spray furosemide (Lasix) 80 MG tablet Take 2 (two) tablets by mouth 2 times daily gabapentin (Neurontin) 300 MG capsule Take 1 (one) capsule by mouth 3 times daily Glucose Blood (BLOOD GLUCOSE TEST STRIPS) STRP Use 1 strip 4 times daily One touch ultra 150 strip 4 hydrALAZINE (Apresoline) 10 MG tablet Take 2 (two) tablets by mouth 3 times daily as needed (For SBP greater than 180) 90 tablet 3 HYDROcodone-acetaminophen (Nekoma) 5-325 MG tablet Take 1 (one) tablet by mouth every 4 hours as needed pain Insulin Lispro (HUMALOG KWIKPEN) 100 UNIT/ML Max 136 units per day 15 Pen 3 insulin pen needle (BD UF III) 31G X 8 MM needle 1 (one) Each 4 times daily 200 Each 3 Lancets (ONETOUCH DELICA PLUS 33G EXTRA FINE LANCET) OneTouch Delica Plus Lancet 33 gauge levothyroxine (SYNTHROID) 112 MCG tablet Take 1 (one) tablet by mouth once daily lisinopril (Prinivil; Zestril) 20 MG tablet Take 1 (one) tablet by mouth 2 times daily 60 tablet 3 LORazepam (Ativan) 0.5 MG tablet Take 1 (one) tablet by mouth at bedtime loteprednol (LOTEMAX) 0.5 % ophthalmic suspension Multiple Vitamins-Minerals (ICAPS AREDS 2 PO) NIFEdipine CR 24hr (Adalat CC) 60 MG tablet Take 1 (one) tablet by mouth once daily Take on an empty stomach. 90 tablet 3 pantoprazole EC (PROTONIX) 40 MG tablet tamsulosin (Flomax) 0.4 MG capsule Take 1 (one) capsule by mouth No current facility-administered medications for this visit. documented in this encounter Plan of Treatment Upcoming Encounters Date Type Department Care Team (Late st Contact Info) Description 09/01/2024 10:50 AM CDT Hospital Encounter [facility] [address] [place] [address] Vanessa Medina MD [facility] [address] [address] Cardiac Catheterization 09/01/2024 10:50 AM CDT - 09/01/2024 12:36 PM CDT Surgery [facility] - Cardiac Waiter [address] [place] [address] Vanessa Medina MD [address] [place] [address] Staged Percutaneous Coronary Intervention 09/13/2024 10:40 AM CDT Office Visit [facility] - End[facility]ology [facility]5 [facility], [place] [address] Niraj Turner MD [facility]5 [facility] 2L [place] [address] 09/20/2024 2:20 PM CDT Office Visit [facility] - Cardiology [address] [place] [address], [address] [phone] Hannah Goodman MD [facility] DIV OF CARDIOLOGY [address] [place] [address] 10/13/2024 1:00 PM CDT Office Visit [facility] - Cardiology [address] [place] [address], [address] [phone] Maylin Cutler DO [address] [facility] [address] [place] [address] Scheduled Orders Name Type Priority Associated Diagnoses Orde r Schedule VAS ARTERIAL ANKLE ARM INDEX Vascular Routine PAD (peripheral artery disease) 1 Occurrences starting 08/30/2024 until 08/30/2025 documented as of this encounter Visit Diagnoses Diagnosis Abnormal stress test Other nonspecific abnormal cardiovascular system function study Dyspnea on exertion Other dyspnea and respiratory abnormality Pre-kidney transplant, listed Coronary artery disease with angina pectoris, unspecified vessel or lesion type, unspecified whether lummi or transplanted heart Abnormal findings on cardiac catheterization PAD (peripheral artery disease)- Primary Unspecified disorders of arteries and arterioles Arterial leg ulcer (HCC) Ulcer of lower limb, unspecified ESRD on PD End stage renal disease Abnormal stress test Other nonspecific abnormal cardiovascular system function study Dyspnea on exertion Other dyspnea and respiratory abnormality Pre-kidney transplant, listed Coronary artery disease with angina pectoris, unspecified vessel or lesion type, unspecified whether lummi or transplanted heart Abnormal findings on cardiac catheterization documented in this encounter Care Teams Energy Efficiency Finance Manager Relationship Specialty Start Date End Date Jeff Strickland MD [address] [place] [address] PCP - General 03/05/18 [place] [address] [place] [address] Orthopedic Surgery 03/28/17 documented as of this encounter
--- OUTSIDE RECORDS SUMMARY | 2024-08-30 18:38 | XMS_ITS ---
Author Organization [facility] Address [address] [place] [id number] Care Team Providers Care Chief Engineer Research Name Role Phone Jeff Strickland MD Primary Care Provider Chan Nicholas MD Unavailable Alan Mccall MD Unavailable [phone] Pepito Haro MD PhD Unavailable Solange Guido MD Unavailable [phone] Dialysis Access Sites Type Status Location Placement [...] Routine 07/25/2024 11:30 AM CDT POCT GLUCOSE [id number] Routine 07/23/2024 1: 26 PM CDT Type [...] ruled out EGFR Routine 04/13/2024 5:06 AM LEAD PASTOR HEMOGLOBIN A1C STAT 04/10/2024 11:41 PM LEAD PASTOR LIPID PANEL STAT 04/10/2024 11:41 PM LEAD PASTOR from Last 3 Months or Most Recently [...] 300 + = 14 units Active FA-vit Tqulh-V-cqvv-vitamin D3 (Dialyvite 800-Ultra D) 0.8-2,000 mg-unit tablet [...] total) by mouth 06/04/19 25 Active vitamins A,C,G-kjdz-dschkg (PreserVision AREDS) 4,296 mcg-226 mg-90 mg capsule as directed Orally Active insulin glargine (BASAGLAR) 100 unit/mL (3 mL) pen for injection Inject 30units under the skin twice daily 30 mL 2 06/23/19 25 Active pen needle, diabetic (Pen Needle) 31 gauge x /16 needle Use to inject insulin 5 times [...] damage Assessment & Plan (03/09/2024 6:25 PM LEAD PASTOR): Vision OD trends mild improvement, though still [...] that genetic results would not change control coordinator. Given we have exhausted available treatment [...] Assessment & Plan (03/26/2021 1:17 PM LEAD PASTOR): Enlarged mild sella turcica on a routine [...] Assessment & Plan (03/26/2021 1:17 PM LEAD PASTOR): Chronic, uncontrolled, improving A1c today 7.7 % [...] Assessment & Plan (03/26/2021 1:16 PM LEAD PASTOR): Pt currently on Levothyroxine 112 mcg oral [...] Assessment & Plan (01/21/2019 2:02 PM LEAD PASTOR): Symptomatic. Will request for esophageal manometry. Continue [...] Assessment & Plan (03/26/2021 1:16 PM LEAD PASTOR): On statin therapy Tolerating well Last lipid [...] nephrectomy. 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 [id number] Immunizations Immunization Administration Dates Next Due Hep [...] = 0.6 oz pur e alcohol) rarely [facility] Utilities Answer Date Recorded In the past 12 months has [employer], gas, oil, or water [employer] threatened to shut off services in your [...] any clubs o r organizations such as voodoo groups, unions, fraternal or athletic groups, or [...] slept in a chcf (including now)? 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 Sex Male 2:23 AM LEAD PASTOR Gender Identity Not on file Sexual Orientation [...] CDT Respiratory Rate 16 04/13/2024 8:33 AM LEAD PASTOR Oxygen Saturation 98% 04/13/2024 8:33 AM LEAD PASTOR Inhaled Oxygen Concentration - - Weight 122.3 kg (269 lb 9.6 oz) 07/23/2024 1:22 PM CDT Height 172.7 cm (5' 8) 07/23/2024 1:22 PM CDT Body Mass Index 40.99 07/23/2024 1:22 PM CDT Results * OCT, Retina - OU [...] OS - outer retinal atrophy, improved CME Result [facility] Corina Ventura MD PhD OPHTH TOMOGRAPHY Final Result * Cardiology Document Scan (07/25/2024 11:30 AM CDT) Anatomical Region Laterality Modality Other Result [facility] Orlando Spencer MD CV CARDIAC SERVICES PROCEDURES Final Result * POCT glucose (07/23/2024 1:26 PM CDT) Glucose Blood, POC 104 Normal Fasting 70 - 100, Random <200 mg/dL Blood 07/23/2024 1:26 PM CDT Result [facility] Gregory Curtis MD POINT OF CARE TEST ORDERABLES Final Result * OCT, Retina - OU - Both Eyes (07/05/2024 2:45 PM CDT) Anatomical Region Laterality Modality Head Optical Coherenc e Tomography Narrative 07/07/2024 2:21 PM CDT Right Eye Quality was good. Left Eye Quality was good. Notes OD: worsened central macular edema (inner retinal layers) OS: worsened non-central macular edema Result [facility] Cinthia Chung MD OPHTH TOMOGRAPHY Final [...] thickness 102 micrometers. Notes Full OU Result [facility] Cinthia Chung MD OPHTH TOMOGRAPHY Final [...] OS: non-specific paracentral changes Cinthia Chung MD OPH VISUAL FIEL D Final Result * (ABNORMAL) eGFR (04/13/2024 5:06 AM LEAD PASTOR) eGFR 5(L) >=60 mL/min/1. 73 m2 Comment: [...] last reviewed 2020. Blood 04/13/2024 5:06 AM LEAD PASTOR 04/13/2024 5:31 AM LEAD PASTOR us Saul Engle MD LAB BLOOD ORDERABLES Final Resul t [facility] Department [place] [address] * (ABNORMAL) Lipid panel (04/10/2024 11:41 PM LEAD PASTOR) Cholesterol 145 30 - 199 mg/dL Comment: [...] on 2017. Triglycerides 453(H) <=149 mg/dL [facility] Comment: Interpretive Data Ages < or [...] on 2017. HDL 22(L) >=40 mg/dL [facility] Comment: Interpretive Data Ages < or [...] 2017. LDL, calculated See Comment <=129 [facility] Comment: Unable to calculate LDL due [...] NCEP Expert Panel. Circulation 2004;110:227 3. Chinmay Lwe et al. LYDIA Cardiol. 2019June 17;5(5):540-548. doi: 10.1001/jamacardio.2020.0013 Current Interpretive Data was last revised on 2023. Non-HDL Cholesterol 123 mg/dL [facility] Comment: Interpretive Data Ages < or [...] last revised on 2017. Chol/HDL ratio 7 [facility] Blood 04/10/2024 11:4 1 PM LEAD PASTOR 04/10/2024 11:55 PM LEAD PASTOR us Nicole Boo MD LAB BLOOD ORDERABLES Final Result [facility] Department [place] [address] from Last 3 Months or Most Recently Relevant to Health Maintenance
--- OUTSIDE RECORDS SUMMARY | 2024-08-30 18:38 | XMS_ITS | Patient Health Record ---
Author Organization [facility] [employer] Address [address] [place] [address] Care Team Providers Care Nitrate Operator Name Role Phone Trenton Hernandez Unavailable [phone] Reason For Referral No Information Medications Medication SIG (Take, Route, Frequency, Duration) Notes Start Date End Date Status Acetaminophen Extra Strength 500 MG Oral 02/26/2023 Active Lisinopril 20 MG Oral 02/26/2023 Ac tive HYDROcodone-Acetamino phen 5-325 MG Oral 02/26/2023 Active Sertraline HCl 25 MG Oral 02/26/2023 Active Aspirin Adult Low Strength 81 MG Oral 02/26/2023 Active Metoclopramide HCl 10 MG Oral 02/26/2023 Active VITAMIN D3 125 MCG (5,000 UNIT)-FOLIC ACID 1 MG TABLET *Reorder from [employer] for eRx and Interaction Alerts* 02/26/2023 Active Azelastine HCl 137 MCG/SPRAY Nasal 02/26/2023 Active Dilt-XR 240 MG Oral 02/26/2023 Acti ve Potassium Chloride ER 10 MEQ Oral 02/26/2023 Active Mounjaro 2.5 MG/0.5ML Subcutaneous *Reorder f rom [employer] for eRx and Interaction Alerts* 02/26/2023 Active Methocarbamol 500 MG Oral 02/26/2023 Active Levothyroxine Sodium 112 MCG Oral 02/26/2023 Active Atorvastatin Calcium 80 MG Oral 02/26/2023 Active Gabapentin 100 MG Oral 02/26/2023 A ctive SODIUM BICARBONATE 1,650 MG-CITRIC ACID 1,000 MG EFFERVESCENT TABLET *Reorder from [employer] for eRx and Interaction Alerts* 02/26/2023 Active Sevelamer Carbonate 800 MG Oral 02/26/2023 Active IPRATROPIUM BROMIDE 21 MCG (0.03 %) NASAL SPRAY *Reorder from [facility] for eRx and Interaction Alerts* 02/26/2023 Active Sodium Bicarbonate 650 MG Oral 02/26/2023 Active Finasteride 5 MG Oral 02/26/2023 Ac tive Basaglar KwikPen 100 UNIT/ML Subcutaneous 02/26/2023 Active Belsomra 20 mg Oral 02/26/2023 Acti ve Furosemide 80 MG Oral 02/26/2023 Ac tive traMADol HCl 50 MG Oral 02/26/2023 Active Sucralfate 1 GM Oral 02/26/2023 Act sylvie Sertraline HCl 100 MG Oral 02/26/2023 Active hydrOXYzine Pamoate 50 MG Oral 02/26/2023 Active Carvedilol 25 MG Oral 02/26/2023 Ac tive Cefdinir 300 MG Oral 02/26/2023 Act sylvie Lidocaine Pain Relief 4 % TOPICAL *Pick strength-form from [facility] for eRX* 02/26/2023 Active Amoxicillin-Pot Clavulanate 875-125 MG Oral 02/26/2023 Active Amoxicillin 500 MG Oral 02/26/2023 Active guanFACINE HCl ER 3 MG Oral 02/26/2023 Active Tamsulosin HCl 0.4 MG Oral 02/26/2023 Active SEVELAMER HCL 800 MG TABLET *Reorder from [facility] for eRx and Interaction Alerts* 02/26/2023 Active LEVOTHYROXINE 112 MCG CAPSULE *Reorder from [facility] for eRx and Interaction Alerts* 02/26/2023 Active ULTRA-FINE SHORT PEN NEEDLE 31 gauge x 16 MISCELLANEOUS *Reorder from [facility] for eRx and Interaction Alerts* 02/26/2023 Active Tylenol PM Extra Strength *Pick strength-form from [facility] for eRX* 02/26/2023 Active Mounjaro 5 MG/0.5ML Subcutaneous *Reorder fro [facility] for eRx and Interaction Alerts* 02/26/2023 Active LORazepam 0.5 MG Oral 02/26/2023 Ac tive Aspirin 81 MG Oral 02/26/2023 Activ e Escitalopram Oxalate 10 MG Oral 02/26/2023 Active Fenofibrate 145 MG Oral 02/26/2023 Active Pantoprazole Sodium 40 MG Oral 02/26/2023 Active Plan Of Treatment No Information Insurance Providers Payer Name Payer Address Payer Phone Subscriber Number Group Number Insured Name Patient Relationship to Insured Coverage Start Date Coverage End Date [employer] [address] [place] [phone] [id number] GRACE INTERIANO Self - patient is the insured Medical (General) History Surgical History Surgery Date(Month/Year) Removal of gallbladder (03238) Cataract surgery (89367) 02/17/2013 Sinus surgery 02/17/2021 Cardiac stent 07/18/2021
--- OUTSIDE RECORDS SUMMARY | 2024-08-30 18:38 | XMS_ITS | Encounter Summary ---
Author Organization [facility] Address [facility] [place] [address] Care Team Providers Care Tearer Name Role Phone Deandre Bojorquez MD Unavailable [phone] Jeff Strickland MD Primary Care Provider [phone] Encounter Details Date Type Department Care Team (Late st Contact Info) Description 03/30/2024 Lab Requisition [facility] [address] [place] [phone] Alan [place] MD [facility] [place] [address] Social History Tobacco Use Types Packs/Day Years Used Date Smoking Tobacco: Never Smokeless Tobacco: Never Alcohol Use Standard Drinks/Week Comments Not Currently 0 (1 standard drink = 0.6 oz pur e alcohol) socially in past Sex and Gender Information Value Date Recorded Sex Assigned at Male 07/02/2021 2:37 PM CDT Legal Sex Male 10:14 PM ENTRY TECH Gender Identity Male 07/02/2021 2:37 PM [...] CDT Hospital Encounter [facility] [address] [place] [address] Vanessa Medina MD [facility] [address] Cardiac Catheterization 09/01/2024 10:50 AM CDT - 09/01/2024 12:36 PM CDT Surgery [facility] - [facility] [employer] [address] [place] [address] Vanessa Medina MD [address] [place] [address] Staged Percutaneous Coronary Intervention 09/13/2024 10:40 AM CDT Office Visit [facility] - Endocrinology [address] [place] [address], [place] [address] Niraj Turner MD [address] [place] [address] [place] [address] 09/20/2024 2:20 PM CDT Office Visit [facility] [address] [facility] [address] [place] [address] Hannah Goodman MD [address] [facility] [address] [place] [address] 10/13/2024 1:00 PM CDT Office Visit [facility] - Cardiology [address], [place] [address] [place] [phone] Maylin Cutler DO [address] [facility] [address] [place] [phone] documented as of this encounter Procedures Procedure Name Priority Date/Time Associated Diagnosis Comments HOLD HLA SPECIMEN Routine 03/25/2024 2:5 1 PM ENTRY TECH documented in this encounter Results * HOLD HLA SPECIMEN (03/25/2024 2:51 PM ENTRY TECH) Hold HLA Specimen 03/30/2024 4:01 PM ENTRY TECH [facility] Comment:The Hold HLA specime n has been received into the lab and will be held for 5 years at 4 degrees. Blood BLOOD SPECIMEN / Unknown 03/25/2024 2:51 PM ENTRY TECH 03/30/2024 2:51 PM ENTRY TECH us Alan [place] MD LAB - BLOOD BANK ORDERABLES F inal Result [facility] [address] [place] [address], [facility] documented in this encounter Visit Diagnoses Not on filedocumented in this encounter Care Teams Tearer Relationship Specialty Start Date End Date Jeff Strickland MD [address] [place] [address] PCP - General 03/05/18 [place] [address] [place] [address] Orthopedic Surgery 03/28/17 documented as of this encounter
[2024-08-30 18:39] VITALS: BP 168/103; PULSE 65; RESP 18; TEMP 36.9; O2SAT 100
--- OUTSIDE RECORDS SUMMARY | 2024-08-30 18:39 | XMS_ITS | Clinical Summary ---
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 ([facility]) Routine 07/21/2024 1:26 PM CDT EKG 12-LEAD Routine 07/21/2024 10:40 AM CDT Atherosclerosis of [place] coronary artery of [place] heart without angina pectoris Abnormal stress test GLUCOSE - POINT OF CARE Routine 07/22/19 25 10:28 AM CDT CBC W/O DIFFERENTIAL ANDIE 07/21/2024 10:26 AM CDT Atherosclerosis of [place] coronary artery of [place] heart without angina pectoris Abnormal stress test BASIC METABOLIC PANEL (CALCIUM TOTAL) ANDIE 07/21/2024 10:26 AM CDT Atherosclerosis of [place] coronary artery of [place] heart without angina pectoris Abnormal stress test [...] SHABNAM on CPAP Coronary artery disease involving [place] coronary artery of [place] heart, unspecified whether angina present STRONGYLOIDES ANTIBODY IGG Routine 06/16/2024 4:15 PM CDT Pre-kidney transplant, listed ESRD (end stage renal disease) (HCC) 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, without long-term current use of insulin (HCC) Hypertension, unspecified type Oncocytoma Kidney stones SHABNAM on CPAP Coronary artery disease involving [place] coronary artery of [place] heart, unspecified whether angina present TOXOPLASMA GONDII ANTIBODY IGG Routine 06/16/2024 4:15 PM CDT Pre-kidney transplant, listed ESRD (end stage renal disease) (HCC) 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, without long-term current use of insulin (HCC) Hypertension, unspecified type Oncocytoma Kidney stones SHABNAM on CPAP Coronary artery disease involving [place] coronary artery of [place] heart, unspecified whether angina present HIV-1 HIV-2 ANTIBODY + HIV P24 AG PANEL Routine 06/16/2024 4:15 PM CDT Pre-kidney transplant, listed ESRD (end stage renal disease) (HCC) 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, without long-term current use of insulin ([facility]) Hypertension, unspecified type Oncocytoma Kidney stones SHABNAM on CPAP Coronary artery disease involving [place] coronary artery of [place] heart, unspecified whether angina present PROSTATE SPECIFIC ANTIGEN SCREEN Routine 06/16/2024 4:15 PM CDT Pre-kidney transplant, listed ESRD (end stage renal disease) ([facility]) 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, without long-term current use of insulin ([facility]) Hypertension, unspecified type Oncocytoma Kidney stones SHABNAM on CPAP Coronary artery disease involving [place] coronary artery of [place] heart, unspecified whether angina present QUANTIFERON-TB GOLD PLUS 4-TUBE Routine 06/16/2024 4:15 PM CDT Pre-kidney transplant, listed ESRD (end stage renal disease) ([facility]) 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, without long-term current use of insulin ([facility]) Hypertension, unspecified type Oncocytoma Kidney stones SHABNAM on CPAP Coronary artery disease involving [place] coronary artery of [place] heart, unspecified whether angina present OPIATES BLOOD Routine 06/16/2024 4:15 PM CDT Pre-kidney transplant, listed ESRD (end stage renal disease) ([facility]) 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, without long-term current use of insulin ([facility]) Hypertension, unspecified type Oncocytoma Kidney stones SHABNAM on CPAP Coronary artery disease involving [place] coronary artery of [place] heart, unspecified whether angina present COCAINE METABOLITE BLOOD QUANT Routine 06/16/2024 4:15 PM CDT Pre-kidney transplant, listed ESRD (end stage renal disease) ([facility]) 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, without long-term current use of insulin ([facility]) Hypertension, unspecified type Oncocytoma Kidney stones SHABNAM on CPAP Coronary artery disease involving [place] coronary artery of [place] heart, unspecified whether angina present AMPHETAMINE BLOOD CONFIRMATION Routine 06/16/2024 4:15 PM CDT Pre-kidney transplant, listed ESRD (end stage renal disease) ([facility]) 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, without long-term current use of insulin (HCC) Hypertension, unspecified type Oncocytoma Kidney stones SHABNAM on CPAP Coronary artery disease involving [place] coronary artery of [place] heart, unspecified whether angina present NICOTINE + METABOLITES BLOOD Routine 06/16/2024 4:15 PM CDT Pre-kidney transplant, listed ESRD (end stage renal disease) (HCC) 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, without long-term current use of insulin (HCC) Hypertension, unspecified type Oncocytoma Kidney stones SHABNAM on CPAP Coronary artery disease involving [place] coronary artery of [place] heart, unspecified whether angina present SYPHILIS ANTIBODY CASCADING REFLEX Routine 06/16/2024 4:15 PM CDT Pre-kidney transplant, listed ESRD (end stage renal disease) (HCC) 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, without long-term current use of insulin (HCC) Hypertension, unspecified type Oncocytoma Kidney stones SHABNAM on CPAP Coronary artery disease involving [place] coronary artery of [place] heart, unspecified whether angina present CYTOMEGALOVIRUS ANTIBODY IGG BLOOD Routine 06/16/2024 4:15 PM CDT Pre-kidney transplant, listed ESRD (end stage renal disease) (HCC) 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, without long-term current use of insulin (HCC) Hypertension, unspecified type Oncocytoma Kidney stones SHABNAM on CPAP Coronary artery disease involving [place] coronary artery of [place] heart, unspecified whether angina present HEPATITIS A ANTIBODY Routine 06/16/2024 4:15 PM CDT Pre-kidney transplant, listed ESRD (end stage renal disease) (HCC) 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, without long-term current use of insulin (HCC) Hypertension, unspecified type Oncocytoma Kidney stones SHABNAM on CPAP Coronary artery disease involving [place] coronary artery of [place] heart, unspecified whether angina present HEPATITIS C ANTIBODY Routine 06/16/2024 4:15 PM CDT Pre-kidney transplant, listed ESRD (end stage renal disease) (HCC) 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, without long-term current use of insulin (HCC) Hypertension, unspecified type Oncocytoma Kidney stones SHABNAM on CPAP Coronary artery disease involving [place] coronary artery of [place] heart, unspecified whether angina present HEPATITIS B CORE ANTIBODY TOTAL Routine 06/16/2024 4:15 PM CDT Pre-kidney transplant, listed ESRD (end stage renal disease) (HCC) 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, without long-term current use of insulin (HCC) Hypertension, unspecified type Oncocytoma Kidney stones SHABNAM on CPAP Coronary artery disease involving [place] coronary artery of [place] heart, unspecified whether angina present HEPATITIS B SURFACE ANTIGEN W RFLX CONFIRMATION Routine 06/16/2024 4:15 PM CDT Pre-kidney transplant, listed ESRD (end stage renal disease) (HCC) 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, without long-term current use of insulin (HCC) Hypertension, unspecified type Oncocytoma Kidney stones SHABNAM on CPAP Coronary artery disease involving [place] coronary artery of [place] heart, unspecified whether angina present PTH INTACT W/O CALCIUM Routine 4:15 PM CDT Pre-kidney transplant, listed ESRD (end stage renal disease) (HCC) 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, without long-term current use of insulin (HCC) Hypertension, unspecified type Oncocytoma Kidney stones SHABNAM on CPAP Coronary artery disease involving [place] coronary artery of [place] heart, unspecified whether angina present PHOSPHORUS BLOOD Routine 06/16/2024 4:15 PM CDT Pre-kidney transplant, listed ESRD (end stage renal disease) (HCC) 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, without long-term current use of insulin (HCC) Hypertension, unspecified type Oncocytoma Kidney stones SHABNAM on CPAP Coronary artery disease involving [place] coronary artery of [place] heart, unspecified whether angina present IRON BLOOD Routine 06/16/2024 4:15 PM CDT Pre-kidney transplant, listed ESRD (end stage renal disease) (HCC) 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, without long-term current use of insulin (HCC) Hypertension, unspecified type Oncocytoma Kidney stones SHABNAM on CPAP Coronary artery disease involving [place] coronary artery of [place] heart, unspecified whether angina present FERRITIN Routine 06/16/2024 4:15 PM CDT Pre-kidney transplant, listed ESRD (end stage renal disease) (HCC) 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, without long-term current use of insulin (HCC) Hypertension, unspecified type Oncocytoma Kidney stones SHABNAM on CPAP Coronary artery disease involving [place] coronary artery of [place] heart, unspecified whether angina present TRANSFERRIN Routine 06/16/2024 4:15 PM CDT Pre-kidney transplant, listed ESRD (end stage renal disease) (HCC) 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, without long-term current use of insulin (HCC) Hypertension, unspecified type Oncocytoma Kidney stones SHABNAM on CPAP Coronary artery disease involving [place] coronary artery of [place] heart, unspecified whether angina present VITAMIN D 25-HYDROXY Routine 06/16/2024 4:15 PM CDT Pre-kidney transplant, listed ESRD (end stage renal disease) (HCC) 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, without long-term current use of insulin (HCC) Hypertension, unspecified type Oncocytoma Kidney stones SHABNAM on CPAP Coronary artery disease involving [place] coronary artery of [place] heart, unspecified whether angina present URIC ACID BLOOD Routine 06/16/2024 4:15 PM CDT Pre-kidney transplant, listed ESRD (end stage renal disease) (HCC) 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, without long-term current use of insulin (HCC) Hypertension, unspecified type Oncocytoma Kidney stones SHABNAM on CPAP Coronary artery disease involving [place] coronary artery of [place] heart, unspecified whether angina present CBC W AUTO DIFFERENTIAL Routine 06/17/19 4:15 PM CDT Pre-kidney transplant, listed ESRD (end stage renal disease) (HCC) 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, without long-term current use of insulin (HCC) Hypertension, unspecified type Oncocytoma Kidney stones SHABNAM on CPAP Coronary artery disease involving [place] coronary artery of [place] heart, unspecified whether angina present HEMOGLOBIN A1C Routine 06/16/2024 4:15 PM CDT Atherosclerosis of [place] coronary artery of [place] heart without angina pectoris Hypertriglyceridemi a Type 2 diabetes mellitus with other specified complication, 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 ([facility]) LIPID PROFILE Routine 06/16/2024 4:15 PM CDT Atherosclerosis of [place] coronary artery of [place] heart without angina pectoris Hypertriglyceridemi a Type 2 diabetes mellitus with other specified complication, 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 ([facility]) COMPREHENSIVE METABOLIC PANEL Routine 06/16/2024 4:15 PM CDT Atherosclerosis of [place] coronary artery of [place] heart without angina pectoris Hypertriglyceridemi a Type 2 diabetes mellitus with other specified complication, unspecified whether alf insulin use ([facility]) US THYROID Routine 06/16/2024 2:32 PM CDT Pre-kidney transplant, listed ESRD (end stage renal disease) (HCC) 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, without long-term current use of insulin (HCC) Hypertension, unspecified type Oncocytoma Kidney stones SHABNAM on CPAP Coronary artery disease involving [place] coronary artery of [place] heart, unspecified whether angina present ECHO COMPLETE W CONTRAST Routine 06/16/2024 1:55 PM CDT Pre-kidney transplant, listed ESRD (end stage renal disease) (HCC) 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, without long-term current use of insulin (HCC) Hypertension, unspecified type Oncocytoma Kidney stones SHABNAM on CPAP Coronary artery disease involving [place] coronary artery of [place] heart, unspecified whether angina present XR CHEST 2VW Routine 06/16/2024 12:49 PM CDT Pre-kidney transplant, listed ESRD (end stage renal disease) (HCC) 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, without long-term current use of insulin (HCC) Hypertension, unspecified type Oncocytoma Kidney stones SHABNAM on CPAP Coronary artery disease involving [place] coronary artery of [place] heart, unspecified whether angina present CT ABDOMEN PELVIS WO CONTRAST Routine 06/16/2024 12:47 PM CDT Pre-kidney transplant, listed ESRD (end stage renal disease) ([facility]) 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, without long-term current use of insulin ([facility]) Hypertension, unspecified type Oncocytoma Kidney stones SHABNAM on CPAP Coronary artery disease involving [place] coronary artery of [place] heart, unspecified whether angina present NM MYOCARD PERF REST STRESS Routine 06/16/2024 12:44 PM CDT Pre-kidney transplant, listed ESRD (end stage renal disease) ([facility]) 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, without long-term current use of insulin ([facility]) Hypertension, unspecified type Oncocytoma Kidney stones SHABNAM on CPAP Coronary artery disease involving [place] coronary artery of [place] heart, unspecified whether angina present STRESS TEST Routine 06/16/2024 11:55 AM CDT Pre-kidney transplant, listed ESRD (end stage renal disease) ([facility]) 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, without long-term current use of insulin ([facility]) Hypertension, unspecified type Oncocytoma Kidney stones SHABNAM on CPAP Coronary artery disease involving [place] coronary artery of [place] heart, unspecified whether angina present from Last 3 Months Results * (ABNORMAL) GLUCOSE - POINT OF CARE (08/19/2024 12:30 PM CDT) Only the most recent of5 resultswithin the time period is included. Glucose WB/POC 163(H) 70 - 99 mg/dL 08/19/2024 12:31 PM CDT [facility] Specimen Type Arterial/C apillary 08/19/2024 12:31 PM CDT [facility] Blood BLOOD SPECIMEN / Unknown 08/19/2024 12:30 PM CDT 08/19/2024 12:31 PM CDT Hannah Goodman MD LAB - POINT OF CARE ORDERABL ES Final Result Performing Organization Address City/[facility]/ZIP Co de Phone Number [address] [address], [place] [phone] * (ABNORMAL) IRON + TRANSFERRIN PANEL (08/19/2024 1:41 AM CDT) Iron 40(L) 50 - 175 ug/dL 08/19/2024 2:17 AM CDT [facility] Transferrin 116(L) 174 - 382 mg/dL 08/19/2024 2:17 AM CDT [facility] Transferrin Saturation % 28 16 - 50 % 08/19/2024 2:17 AM CDT [facility] TIBC Calculated 145(L) 240 - 450 ug/dL 08/19/2024 2:17 AM CDT [facility] Blood BLOOD SPECIMEN / Unknown Lab Venipuncture / Unknown 08/19/2024 1:41 AM CDT 08/19/2024 2:01 AM CDT Hannah Goodman MD LAB - CHEMISTRY ORDERABLES F inal Result Performing Organization Address [facility]/ZIP Co de Phone Number [address] [address], [place] [phone] * (ABNORMAL) FERRITIN (08/19/2024 1:41 AM CDT) Only the most recent of2 resultswithin the time period is included. Ferritin 560(H) 22 - 275 ng/mL 08/19/2024 2:35 AM CDT [facility] Blood BLOOD SPECIMEN / Unknown Lab Venipuncture / Unknown 08/19/2024 1:41 AM CDT 08/19/2024 2:01 AM CDT us Hannah Goodman MD LAB - CHEMISTRY ORDERABLES F inal Result Performing Organization Address City/[facility]/ZIP Co de Phone Number [address] [address], [place] [phone] * VITAMIN D 25-HYDROXY (08/19/2024 1:23 AM CDT) Only the most recent of2 resultswithin the time period is included. Pathologist [facility] Vitamin D, 25 Hydroxy 36.2 30.0 - 80.0 ng/mL 08/19/2024 2:24 AM [facility] Comment: The recommendations for 25-Hydroxy Vitamin [...] SPECIMEN / Unknown Lab Venipuncture / Unknown 08/19/2024 1:23 AM CDT 08/19/2024 1:25 AM CDT us Hannah Goodman MD LAB - CHEMISTRY ORDERABLES F inal Result [address] [address], [facility] [phone] * (ABNORMAL) CBC W/O DIFFERENTIAL (08/19/2024 1:23 AM CDT) Only the most recent of3 resultswithin the time period is included. Pathologist [facility] WBC 11.6(H) 4.0 - 10.7 x10E9/L 08/19/2024 1:31 AM [facility] RBC Count 3.16(L) 4.30 - 5.80 x10E12/L 08/19/2024 1:31 AM [facility] Hemoglobin 9.2(L) 13.3 - 17.5 g/dL 08/19/2024 1:31 AM [facility] Hematocrit 28.0(L) 38.7 - 51.1 % 08/19/2024 1:31 AM [facility] MCV 88.6 80.0 - 98.0 fL 08/19/2024 1:31 AM [facility] MCH 29.1 26.7 - 33.6 pg 08/19/2024 1:31 AM [facility] MCHC 32.9 31.7 - 36.3 g/dL 08/19/2024 1:31 AM [facility] RDW-CV 15.7(H) 11.3 - 14.8 % 08/19/2024 1:31 AM [facility] Platelet Count 145(L) 150 - 420 x10E9/L 08/19/2024 1:31 AM [facility] MPV 10.9 7.8 - 11.4 fL 08/19/2024 1:31 AM [facility] Blood BLOOD SPECIMEN / Unknown Lab Venipuncture / Unknown 08/19/2024 1:23 AM CDT 08/19/2024 1:25 AM T Letha Christine ENGINE TEST CELL TECHNICIAN-SUPERVISOR HOT DIP PLATING LAB - HEMATOLOGY ORDER MICHELLE Final Result [facility] [address] [place] [address], [facility] [phone] * (ABNORMAL) COMPREHENSIVE METABOLIC PANEL (08/19/2024 1:23 AM T) Only the most recent of2 resultswithin the time period is included. BUN 39(H) 7 - 26 mg/dL 08/19/2024 2:07 AM [facility] Creatinine 9.53(H) 0.71 - 1.16 mg/dL 08/19/2024 2:07 AM [facility] Sodium 137 136 - 145 mmol/L 08/19/2024 2:07 AM [facility] Potassium 3.6 3.5 - 4.5 mmol/L 08/19/2024 2:07 AM [facility] Chloride 97(L) 98 - 107 mmol/L 08/19/2024 2:07 AM [facility] CO2 23 22 - 29 mmol/L 08/19/2024 2:07 AM [facility] Glucose 85 70 - 99 mg/dL 08/19/2024 2:07 AM [facility] Calcium 7.9(L) 8.4 - 10.2 mg/dL 08/19/2024 2:07 AM [facility] Protein Total 5.3(L) 6.0 - 8.3 g/dL 08/19/2024 2:07 AM [facility] Albumin 2.1(L) 3.4 - 5.0 g/dL 08/19/2024 2:07 AM [facility] Bilirubin Total 0.3 0.2 - 1.2 mg/dL 08/19/2024 2:07 AM [facility] Alkaline Phosphatase 81 40 - 150 U/L 08/19/2024 2:07 AM [facility] ALT 25 5 - 55 U/L 08/19/2024 2:07 AM [facility] AST 42(H) 5 - 34 U/L 08/19/2024 2:07 AM [facility] Anion Gap 17(H) 6 - 16 08/19/2024 2:07 AM [facility] BUN/Creatinine Ratio 4(L) 7 - 23 08/19/2024 2:07 AM [facility] Osmolality Calculated 293 275 - 295 mOsm/kg 08/19/2024 2:07 AM [facility] Albumin/Globulin Ratio 0.7(L) 1.1 - 2.3 08/19/2024 2:07 AM [facility] eGFR by CKD-EPI 5(L) >=90 mL/min/1.7 3 m2 08/19/2024 2:07 AM [facility] Comment:Estimated Glomerular Filtration Rate (eGFR) calculated using the CKD-EPI Creatinine Equation (2020), per the [employer] and [place] [employer] Neph[employer] recommendations. Blood BLOOD SPECIMEN / Unknown Lab Venipuncture / Unknown 08/19/2024 1:23 AM CDT 08/19/2024 1:25 AM [facility] us Hannah Goodman MD LAB - CHEMISTRY ORDERABLES F inal Result [facility] [address] [place] [address], [facility] [phone] * (ABNORMAL) PTH INTACT W/O CALCIUM (08/19/2024 1:17 AM CDT) Only the most recent of2 resultswithin the time period is included. PTH Intact 443.9(H) 8.0 - 77.0 pg/mL 08/19/2024 1:57 AM CDT [facility] Blood BLOOD SPECIMEN / Unknown Lab Venipuncture / Unknown 08/19/2024 1:17 AM CDT 08/19/2024 1:17 AM CDT us Hannah Goodman MD LAB - CHEMISTRY ORDERABLES F inal Result [place] [id number] [place] [address], [facility] [phone] * CCL PERIPHERAL ANGIOGRAM (08/18/2024 2:33 PM CDT) Anatomical Region Laterality Modality X-Ray Angiograph y Narrative 08/19/2024 2:24 PM CDT Left leg angiogram showed left AT severe diffuse disease with multiple subtotal occlusion and left PT severe diffuse disease with MOTTLER MACHINE FEEDER of distal PT without clear reconstitution. Successful percutaneous transluminal angioplasty, chocolate balloon and drug eluting stent of left AT tibial-dorsalis pedis artery upto the great toe (Mod-22) Successful percutaenous transluminal angioplasty of posterior tibial artery into lateral planter artery. Perclose device was utilized to achieve hemostasis of right common femoral access. . Reason for Procedure 69 yo male with PMH CAD s/p PCI to mid LAD with overlapping stents in 2020, ESRD on PD, HFpEF, PAD, DMT2, HLD, non healing left great toe ulcer who presents for LLE peripheral angiogram. Procedure Details Estimated Blood Loss: 10 mL Procedure Details and Comments: - Right common femoral access was obtained using ultrasound guidance. 5 Fr sheath was placed. Left common iliac artery was engaged using 5 Fr IM diagnostic catheter and selective angiogram was performed. Which showed results mentioned on image. Based on which, we decided to intervene on left AT and PT. - 5 Fr sheath was upgraded to 7 Fr 45 cm destination sheath to left common femoral artery over glide advantage wire. 5 Fr 90 cm sheath was advanced to left popliteal artery through 7 Fr sheath(in mother-daughter fashion) to left popliteal artery. - AT lesion was crossed using 0.018 CXI microcatheter with multiple wires(Command 18/command 14/Elementary School Director 200) to get to great toe branch of dorsalis pedis using commercial helicopter pilot [address] - the AT-DP lesion was dilated with balloons mentioned in figure. - We turn our attention to PT. We crossed the PT MOTTLER MACHINE FEEDER with 0.018 CXI microcatheter with multiple wires (command 18, command 14, Elementary School Director 200) and able to go to lateral planter artery. - we dilate the lesion up to proximal lateral planter artery with multiple lesions (shaft length of balloons was not going beyond that). - Final angiogram showed in-kandi flow to great toe from AT to DP with mild residual stenosis and in-line flow to great toe from PT to lateral planter with diffuse disease in foot vascular territory without any flow limiting dissection or perforation. Non Coronary Arteries Findings Diagnostic Left Anterior Tibial: Ost L ROSETTA to Dist L ROSETTA lesion is 99% stenosed. Stenosis was measured using angiography. Left Posterior Tibial: Ost L VICE PRESIDENT PROCESS to Dist L VICE PRESIDENT PROCESS lesion is 100% stenosed. Stenosis was measured using angiography. Intervention Ost L ROSETTA to Dist L ROSETTA lesion: Angioplasty: Angioplasty independent of stent deployment was performed using a standard balloon. The balloon used was Cath Ethos Lendingn Emrg Mr Wh 1.5Mm 144Cm 15Mm 2. Angioplasty: Angioplasty prior to stent deployment was performed using a standard balloon. The balloon used was Cath Balln Dil Nanocross Elt 2-1.5Mm 150. Angioplasty: Angioplasty prior to stent deployment was performed using a standard balloon. The balloon used was Cath Balln Dil Nanocross Elt 3-2.5Mm 150. Angioplasty: Angioplasty prior to stent deployment was performed using a standard balloon. The balloon used was Chocolate 3.5x80. Stent: Drug-eluting stent was successfully placed. Stent was deployed by way of balloon-expansion. The stent deployed was a Sys Cor Stent Sng Xd Monrl 3.5mm 48mm. Angioplasty: Angioplasty following stent deployment was performed using a standard balloon. The balloon used was Cath Balln Dil Nc Emerge Monrl 3.5Mm 143. Post-Intervention Lesion Assessment: The intervention was optimal. Intentional subintimal strategy was used. Embolic protection device was not deployed. The guidewire crossed the lesion. There were no complications. There is a 10% residual stenosis post intervention. Ost L VICE PRESIDENT PROCESS to Dist L VICE PRESIDENT PROCESS lesion: Angioplasty: Angioplasty independent of stent deployment was performed using a standard balloon. The balloon used was Cath Balln Mr Wh Emrg 2Mm 144Cm 40Mm. Angioplasty: Angioplasty independent of stent deployment was performed using a standard balloon. The balloon used was Cath Balln Dil Nanocross Elt 2-1.5Mm 150. Angioplasty: Angioplasty independent of stent deployment was performed using a standard balloon. The balloon used was Cath Balln Dil Nc Emerge Monrl 2.5Mm 143. Angioplasty: Angioplasty independent of stent deployment was performed using a scoring balloon. The balloon used was Chocolate Balloon 2.5 x 80. Angioplasty: Angioplasty independent of stent deployment was performed using a standard balloon. The balloon used was Balln 2.5Mm 100Mm 10Mm Wolv Mr Cut Bmpr. Angioplasty: Angioplasty independent of stent deployment was performed using a standard balloon. The balloon used was Chocolate Balloon 2.5 x 80. Post-Intervention Lesion Assessment: The intervention was optimal. Intentional subintimal strategy was used. Embolic protection device was not deployed. The guidewire crossed the lesion. There is a 0% residual stenosis post intervention. PVI recommendations 81 mg of aspirin. 75 mg of Plavix. -recommend close follow up with airborne operations superintendent and follow up with me in clinic with TWYLA/TBI. Hannah Goodman MD CV INVASIVE VASCULAR AND IR CUPID PROC Final Result * ACT LR - POCT ([facility]) (08/18/2024 2:08 PM CDT) Only the most recent of5 resultswithin the time period is included. [facility] ACT LR 231 See result comments sec 08/19/2024 9:02 AM CDT [facility] Blood BLOOD SPECIMEN / Unknown 08/18/2024 2:08 PM CDT 08/19/2024 9:02 AM CDT Narrative [facility] - 08/19/2024 9:02 AM CDT ACT-LR Therapeutics ranges are: Cardiac research lab assistant = 200-300 seconds Sheath pull = ACT less than 170 seconds EPS lab = 200-240 seconds Sheath pull = ACT less than 140 seconds Radiology : CT/Angio lab = 200-300 seconds Sheath pull = ACT less than 200 seconds Expected range of normal volunteers: ACT-LR = 113-149 seconds Expected range of a Non-heparin patients: ACT-LR = 89-169 seconds From established ranges from the company manual Hannah Goodman MD LAB - COAGULATION ORDERABLES Final Result [facility] [address] [place] [address], [facility] [phone] * (ABNORMAL) BASIC METABOLIC PANEL (CALCIUM TOTAL) (08/18/2024 10:11 AM [facility]) Only the most recent of2 resultswithin the time period is included. BUN 34(H) 7 - 26 mg/dL 08/18/2024 11:03 AM [facility] Creatinine 8.79(H) 0.71 - 1.16 mg/dL 08/18/2024 11:03 AM [facility] Sodium 137 136 - 145 mmol/L 08/18/2024 11:03 AM [facility] Potassium 3.3(L) 3.5 - 4.5 mmol/L 08/18/2024 11:03 AM [facility] Chloride 98 98 - 107 mmol/L 08/18/2024 11:03 AM [facility] CO2 28 22 - 29 mmol/L 08/18/2024 11:03 AM [facility] Glucose 111(H) 70 - 99 mg/dL 08/18/2024 11:03 AM [facility] Calcium 8.2(L) 8.4 - 10.2 mg/dL 08/18/2024 11:03 AM [facility] Anion Gap 11 6 - 16 08/18/2024 11:03 AM [facility] BUN/Creatinine Ratio 4(L) 7 - 23 08/18/2024 11:03 AM [facility] Osmolality Calculated 292 275 - 295 mOsm/kg 08/18/2024 11:03 AM [facility] eGFR by CKD-EPI 6(L) >=90 mL/min/1.7 3 m2 08/18/2024 11:03 AM CDT [facility] Comment:Estimated Glomerular Filtration Rate (eGFR) calculated using the CKD-EPI Creatinine Equation (2020), per the National Kidney Foundation and [place] [employer] of Nephrology recommendations. Blood BLOOD SPECIMEN / Unknown Venipuncture / Unknown 08/18/2024 10:11 AM CDT 08/18/2024 10:24 AM CDT us Letha Christine ENGINE TEST CELL TECHNICIAN-SUPERVISOR HOT DIP PLATING LAB - CHEMISTRY ORDERA BLES Final Result [facility] [address] [place] [address], [facility] [phone] * MRI ABDOMEN WWO CONTRAST (08/04/2024 12:24 PM CDT) Anatomical Region Laterality Modality Abdomen Magnetic Resonan ce 08/04/2024 2:41 PM CDT Impressions 08/04/2024 6:23 PM CDT Impression: 1.Grossly unchanged heterogenously enhancing solid mass in the upper pole of the left kidney up to 2.7 cm, 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 2.Exophytic structure arising from the inferior pole of the left kidney containing heterogenous T1 and T2 hyperintense contents with a thick wall is decreased in size, compatible with a Bosniak 2F cyst. 3.Redemonstrated polycystic kidneys, containing many hemorrhagic cysts. Report dictated by Alan Cole MD (residential door installer). ITerry MD have personally reviewed and interpreted this examination/study. > Interpreting Provider: Terry Ramos MD on 08/04/2024 6:23 PM Narrative 08/04/2024 6:23 PM CDT PROCEDURE: MRI ABDOMEN WWO CONTRAST DATE/TIME OF EXAM: 08/04/2024 12:25 PM CLINICAL INFORMATION: None relevant/not provided if blank. Indication: N28.1: Renal cyst N28.89: Left renal mass Additional History: History of right kidney renal cell carcinoma status post partial nephrectomy. Biopsy of the known left upper pole renal mass correlated with oncocytoma. COMPARISON: CT abdomen and pelvis 06/16/2024, MRI abdomen 03/04/2022 TECHNIQUE: MRI of the abdomen was performed prior to and following the uneventful administration of 20 mL of Multihance intravenous gadolinium contrast according to a renal protocol. Findings: Lower Chest: Normal. Hepatobiliary system Liver morphology: Normal size with smooth surface contour. Steatosis: None. Varices: None. Spleen: Redemonstrated a small cyst and a small hemangioma within the spleen, otherwise normal. Ascites: Small volume. Focal liver observations No arterially enhancing observations. Hepatic vasculature Portal and hepatic veins: Patent. Arterial anatomy: Conventional. Gallbladder and bile ducts Gallbladder: Absent. Bile ducts: Nondilated. Retroperitoneum Pancreas: Normal. Adrenals: Normal. Kidneys: Innumerable cysts are redemonstrated throughout both kidneys, several are T1 hyperintense or contain layering T1 hyperintense products compatible with hemorrhagic cysts. Redemonstrated a 2.2 x 2.5 x 2.7 cm heterogeneously enhancing solid lesion in the upper pole of the left kidney, not significantly changed, series 13 image 49, series 16 image 41. A 2.7 x 2.4 cm exophytic structure arising from the lower pole of the left kidney (series 13 image 79) is decreased in size (previously 3.1 x 3.2 cm), there is no significant enhancement on the subtraction images. It has a thick wall and contains heterogenous T1 and T2 hyperintense areas. No new enhancing lesions identified. No hydronephrosis. Lymph nodes: No lymphadenopathy. Gastrointestinal: Imaged bowel and mesentery are normal. Other findings: Partially visualized peritoneal dialysis catheter. Procedure Note Tosha Ramos MD - 08/04/2024 PROCEDURE: MRI ABDOMEN WWO CONTRAST DATE/TIME OF EXAM: 08/04/2024 12:25 PM CLINICAL INFORMATION: None relevant/not provided if blank. Indication: N28.1: Renal cyst N28.89: Left renal mass Additional History: History of right kidney renal cell carcinoma status post partial nephrectomy. Biopsy of the known left upper pole renal mass correlated with oncocytoma. COMPARISON: CT abdomen and pelvis 06/16/2024, MRI abdomen 03/04/2022 TECHNIQUE: MRI of the abdomen was performed prior to and following the uneventful administration of 20 mL of Multihance intravenous gadolinium contrast according to a renal protocol. Findings: Lower Chest: Normal. Hepatobiliary system Liver morphology: Normal size with smooth surface contour. Steatosis: None. Varices: None. Spleen: Redemonstrated a small cyst and a small hemangioma within the spleen, otherwise normal. Ascites: Small volume. Focal liver observations No arterially enhancing observations. Hepatic vasculature Portal and hepatic veins: Patent. Arterial anatomy: Conventional. Gallbladder and bile ducts Gallbladder: Absent. Bile ducts: Nondilated. Retroperitoneum Pancreas: Normal. Adrenals: Normal. Kidneys: Innumerable cysts are redemonstrated throughout both kidneys, severalare T1 hyperintense or contain layering T1 hyperintense products compatible with hemorrhagic cysts. Redemonstrated a 2.2 x 2.5 x 2.7 cm heterogeneously enhancing solidlesion in the upper pole of the left kidney, not significantly changed, [id number] image 49, series 16 image 41. A 2.7 x 2.4 cm exophytic structure arising from the lower pole of theleft kidney (series 13 image 79) is decreased in size (previously 3.1 x 3.2cm), there is no significant enhancement on the subtraction images. It has a thick wall and contains heterogenous T1 and T2 hyperintense areas. No new enhancing lesions identified. No hydronephrosis. Lymph nodes: No lymphadenopathy. Gastrointestinal: Imaged bowel and mesentery are normal. Other findings: Partially visualized peritoneal dialysis catheter. 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 2.Exophytic structure arising from the inferior pole of the left kidney containing heterogenous T1 and T2 hyperintense contents with a thickwall is decreased in size, compatible with a Bosniak 2F cyst. 3.Redemonstrated polycystic kidneys, containing many hemorrhagic cysts. Report dictated by Alan Cole MD (residential door installer). I, Terry Ramos MD have personally reviewed and interpreted this examination/study. > Interpreting Provider: Terry Ramos MD on 08/04/2024 6:23 PM us Thomas Mendoza MD MR ORDERABLES Final Resu lt * CCL LEFT HEART CATH (07/21/2024 1:54 PM CDT) Anatomical Region Laterality Modality X-Ray Angiograph y Narrative 07/25/2024 12:03 PM CDT 2-vessel CAD with prior diagonal stent 99% ISR. distal RCA discrete 80% stenosis Unsuccessful PTCA of diagonal branch ISR lesion. Able to cross with wire but unable to cross with balloon or microcatheter due to lack of support. Successful IVUS of left main which showed no signicant disease . Reason for Procedure Patient with abnormal stress test referred for cath Procedure Details Estimated Blood Loss: 5 mL Coronary Findings Diagnostic Dominance: Right Left Anterior Descending: Mid LAD lesion is 40% stenosed. Not the culprit lesion. TELMA flow is 3. The lesion is not chronically occluded. The lesion was not previously treated. ISR in mid LAD stent First Diagonal Branch: 1st Diag lesion is 99% stenosed. Culprit lesion. TELMA flow is 2. The lesion is type C, distal to major branch and concentric. The lesion is not chronically occluded. The lesion was previously treated using a drug-eluting stent. The lesion has in-stent. No thrombosis in the previous stent. Ultrasound (IVUS) was performed. Right Coronary Artery: Dist RCA lesion is 80% stenosed. Culprit lesion. TELMA flow is 2. The lesion is not chronically occluded. The lesion was not previously treated. Intervention 1st Diag lesion: Angioplasty: Angioplasty independent of stent deployment was performed using a BALLOON semi-compliant balloon. Maximum pressure: 14 david. Post-Intervention Lesion Assessment: The intervention was unsuccessful because of severe calcification. The guidewire crossed the lesion. Device was deployed. Post-intervention TELMA flow is 2. There were no complications. Post-PCI ultrasound (IVUS) was performed. Severe plaque burden was detected. IVUS revealed that the lesion is concentric. The stent is fully expanded. not fully opposed There is a 99% residual stenosis post intervention. Recommendations - 1. Continue DAPT 2. Stage PCI from groin for RCA and subsequently diagonal vessel ISR lesion us Maylin Cutler DO CV CARDIAC CATH CUPID PROCS Fi nal Result * EKG 12-LEAD (07/21/2024 10:40 AM CDT) Ventricular Rate 52 BPM [facility] Atrial Rate 52 BPM [facility] P-R Interval 172 ms [facility] QRS Duration ms 112 ms [facility] MUSE Q-T Interval ms 550 ms [facility] MUSE QTC Calculation (Bezet) 511 ms [facility] Calculated P [employer] [place] 73 degrees [facility]USE Calculated R [employer] [place] -55 degrees [facility]USE Calculated T [employer] [place] -56 degrees [facility]USE Interpretation EKG SINUS BRADYCARDIA LEFT ANTERIOR FASCICULAR BLOCK NONSPECIFIC T WAVE ABNORMALITY PROLONGED QT ABNORMAL ECG NO PREVIOUS ECGS AVAILABLE Confirmed by МАРИНА CARRERA MD ([id number]) on 07/21/2024 3:29:58 PM [facility] MUSE 07/21/2024 10:4 0 AM CDT 07/21/2024 3:29 PM CDT us Jaqueline Crews ENGINE TEST CELL TECHNICIAN-SUPERVISOR HOT DIP PLATING ECG ORDERABLES Edited R esult - Final Performing Organization Address City/[facility]/ZIP Co de Phone Number [facility]USE * CARDIAC EKG ORDER (06/22/2024 12:07 PM CDT) Narrative 06/22/2024 12:07 PM CDT Ordered by an unspecified provider. us Scanned Document CARDIAC SERVICES ORDERABLES Fin al Result * HOLD HLA SPECIMEN (06/22/2024 11:05 AM CDT) [facility] Hold HLA Specimen 06/25/2024 12:32 PM CDT [facility] ([facility]) Comment:The Hold HLA specime n has been received into the lab and will be held for 5 years at 4 degrees. Blood BLOOD SPECIMEN / Unknown 06/22/2024 11:05 AM CDT 06/25/2024 11:05 AM CDT us Alan Davenport MD LAB - BLOOD BANK ORDERABLES F inal Result [facility] ([facility]) [address] * HEPATITIS B SURFACE ANTIBODY QUANT (06/16/2024 4:17 PM CDT) Pathologist [facility] Hepatitis B Virus Surface Antibody Non-react sylvie Non-react sylvie 06/16/2024 6:02 PM CDT [facility] Comment: < 8 mIU/mL Hepatitis B surface Antibody (HBsAb). Nonreactive for HBsAb - individual is considered not immune to Hepatitis B Virus infection. Hepatitis B Surface Antibody Quantitative <3.0 <8.0 mIU/mL 06/16/2024 6:02 PM CDT [facility] Comment: Hepatitis B Surface Antibody Numeric Result Interpretation: Nonreactive: <8.0 mIU/mL Indeterminate: 8.0 - 12.0 mIU/mL Reactive: >12.0 mIU/mL Blood BLOOD SPECIMEN / Unknown Lab Venipuncture / Unknown 06/16/2024 4:17 PM CDT 06/16/2024 5:14 PM CDT Narrative [facility] - 06/16/2024 6:02 PM CDT This assay should not be used for blood, plasma, or tissue donor screening. This assay is not recommended for neonates born to HBV-infected or suspected HBV-infected mothers. Alan Davenport MD LAB - SEROLOGY ORDERABLES Fin al Result [facility] [address] [place] [address], [facility] [phone] * COCAINE METABOLITE QUANT (06/16/2024 4:15 PM CDT) [facility] Cocaine and Metabolite Blood <20 ng/mL 06/21/2024 9:00 AM CDT [facility] ([facility]) Comment: INTERPRETIVE INFORMATION: Cocaine Metabolite, Serum or Plasma, Quantitative Methodology: Quantitative Liquid Chromatography-Tandem Mass Spectrometry Positive cutoff: 20 ng/mL For medical purposes only; not valid for forensic use. The concentration value must be greater than or equal to the cutoff to be reported as positive. Interpretive questions should be directed to the laboratory. This test was developed and its performance characteristics determined by [facility]. It has not been cleared or approved by the [place] Food and Drug Administration. This test was performed in a CLIA certified laboratory and is intended for clinical purposes. Performed By: [facility] [address] [place] [id number] [place] T[place]: Mk Egan MD, PhD CLIA Number: [id number] Blood BLOOD SPECIMEN / Unknown Lab Venipuncture / Unknown 06/16/2024 4:15 PM CDT 06/16/2024 5:17 PM CDT us Alan Davenport MD LAB - CHEMISTRY ORDERABLES Fi nal Result Performing Organization Address City/[facility]/ZIP Co de Phone Number [facility]) [address] [place], [place] [address] * SYPHILIS ANTIBODY CASCADING REFLEX (06/16/2024 4:15 PM CDT) Treponema pallidum Antibody Non-react sylvie Non-react sylvie 06/16/2024 5:49 PM CDT [facility] Comment: No Laboratory evidence of [...] ORDERABLES Fin al Result Performing Organization Address [facility] de Phone Number [address] [address], [facility] [phone] * AMPHETAMINE BLOOD CONFIRMATION (06/16/2024 4:15 PM CDT) Amphetamines Confirmation <20 ng/mL 06/23/2024 4:46 PM CDT [facility] ([facility]) Comment: INTERPRETIVE INFORMATION: Amphetamines, Serum or Plasma, [...] developed and its performance characteristics determined by [facility]. It has not been cleared or approved by the [place] Food and Drug Administration. This test was performed in a CLIA certified laboratory and is intended for clinical purposes. Methamphetamine Confirmation <20 ng/mL 06/23/2024 4:46 PM CDT [facility] ([facility]) MDA Confirmation <20 ng/mL 06/24/19 25 4:46 PM CDT [facility] ([facility]) MDMA Confirm <20 ng/mL 06/23/2024 4:46 PM CDT [facility] ([facility]) MDEA Confirmation <20 ng/mL 025 4:46 PM CDT [facility]) Comment: Performed By: [facility] GL [address] [place] [address] Fisher Trot Line: Mk Egan MD, PhD [place] Number: [id number] Blood BLOOD SPECIMEN / Unknown Lab Venipuncture / Unknown 06/16/2024 4:15 PM CDT 06/16/2024 5:16 PM CDT Alan Davenport MD LAB - CHEMISTRY ORDERABLES Fi nal Result [facility]) [address] [place] [address] * QUANTIFERON-TB GOLD PLUS 4-TUBE (06/16/2024 4:15 PM CDT) Pathologist [facility] QuantiFERON Mitogen Minus NIL 9.96 IU/mL 06/18/2024 10:28 PM CDT [facility]) QuantiFERON Nil Value 0.04 IU/mL 06/18/2024 10:28 PM CDT [facility] ([facility]) QuantiFERON Plus TB1 Minus NIL 0.00 <=0.34 IU/mL 06/18/2024 10:28 PM CDT [facility]) QuantiFERON Plus TB2 Minus NIL 0.10 <=0.34 IU/mL 06/18/2024 10:28 PM CDT [facility] ([facility]) QuantiFERON-TB Gold Plus Negative Negative 06/18/2024 10:28 PM CDT [facility] ([facility]) Comment: INTERPRETIVE INFORMATION:Quantiferon TB Gold Plus Interferon [...] Mycobacterium tuberculosis Infection -- [place], 2010 (http://www.cdc.gov/mmwr/preview/mmwrhtml/do8591o0.htm), for more information concerning test performance in low-prevalence populations and use in occupational screening. Performed By: [facility] [address] [place] [address] Fisher Trot Line: Mk Egan MD, PhD [place] Number: [id number] Blood BLOOD SPECIMEN / Unknown Lab Venipuncture / Unknown 06/16/2024 4:15 PM CDT 06/16/2024 4:49 PM CDT Alan Davenport MD LAB - CHEMISTRY ORDERABLES Fi nal Result [employer] [facility]) [address] * (ABNORMAL) OXALATE BLOOD (06/16/2024 4:15 PM CDT) Oxalate 2.1(H) <=2.0 umol/L 06/21/2024 6:22 PM CDT [employer] ([facility]) Comment: INTERPRETIVE INFORMATION: Oxalate, Plasma This test was developed and its performance characteristics determined by [facility]. It has not been cleared or approved by the US Food and Drug Administration. This test was performed in a CLIA certified laboratory and is intended for clinical purposes. Performed By: [facility] [address] [place] [address] [place] T[place]: Mk Egan MD, PhD CLIA Number: [id number] Blood BLOOD SPECIMEN / Unknown Lab Venipuncture / Unknown 06/16/2024 4:15 PM CDT 06/16/2024 5:02 PM CDT Alan Davenport MD LAB - CHEMISTRY ORDERABLES Fi nal Result Performing Organization Address [facility]/ZIP Co de Phone Number [facility] ([facility]) [address] [place], [place] [address] * HIV-1 HIV-2 ANTIBODY + HIV P24 AG PANEL (06/16/2024 4:15 PM CDT) [facility] HIV Antigen/Antibod y 1 & 2 Non-reacti ve Non-react sylvie 06/16/2024 5:50 PM CDT [facility] Comment:No Laboratory eviden ce of HIV infection. Blood BLOOD SPECIMEN / Unknown Lab Venipuncture / Unknown 06/16/2024 4:15 PM CDT 06/16/2024 5:15 PM CDT Alan Davenport MD LAB - CHEMISTRY ORDERABLES Fi nal Result Performing Organization Address [facility] Co de Phone Number [address] [address], [facility] [phone] * OPIATES BLOOD (06/16/2024 4:15 PM CDT) [facility] Opiates Screen Negative 06/24/2024 3:10 PM CDT [facility] ([facility]) Comment:REFERENCE RANGE: thr shold: 10 ng/mL Oxycodone Screen Negative 06/25/19 3:10 PM CDT [facility] ([facility]) Comment:REFERENCE RANGE: thr shold: 10 ng/mL Specimen Type Comment 06/24/2024 3:10 PM CDT [facility] ([facility]) Comment: WHOLE BLOOD This specimen was screened by immunoassay at the thresholds listed above. Presumptive positive results have not been confirmed by an alternate method; results are intended for clinical medical purposes. Please contact the laboratory if confirmatory testing is desired. This test was developed and its performance characteristics determined by [facility]. It has not been cleared or approved by the Food and Drug Administration. Blood BLOOD SPECIMEN / Unknown Lab Venipuncture / Unknown 06/16/2024 4:15 PM CDT 06/16/2024 4:49 PM CDT Narrative [facility] ([facility]) - 06/24/2024 3:10 PM CDT Performed at: - [facility] [address] [place] [address] [id number] Blind Teacher: Ev Camarena [facility], Phone: [phone] us Alan Davenport MD LAB - CHEMISTRY ORDERABLES Fi nal Result Performing Organization Address [facility]/ZIP Co de Phone Number [facility] [address] [place] [address] * URIC ACID BLOOD (06/16/2024 4:15 PM CDT) Uric Acid 5.7 3.5 - 7.2 mg/dL 06/16/2024 5:31 PM CDT [facility] Blood BLOOD SPECIMEN / Unknown Lab Venipuncture / Unknown 06/16/2024 4:15 PM CDT 06/16/2024 5:02 PM CDT us Alan Davenport MD LAB - CHEMISTRY ORDERABLES Fi nal Result Performing Organization Address City/[facility]/ZIP Co de Phone Number [address] [address], [facility] [phone] * STRONGYLOIDES ANTIBODY IGG (06/16/2024 4:15 PM CDT) Strongyloides Antibody IgG 0.1 <=0.9 IV 06/20/2024 11:18 PM CDT [facility] ([facility]) Comment: INTERPRETIVE INFORMATION: Strongyloides Ab, IgG by [...] also result in false-positive results. Performed By: [facility] GL [address] [place] [address] Fisher Trot Line: Mk Egan MD, PhD CLIA Number: [id number] Blood BLOOD SPECIMEN / Unknown Lab Venipuncture / Unknown 06/16/2024 4:15 PM CDT 06/16/2024 5:17 PM CDT us Alan Davenport MD LAB - SEROLOGY ORDERABLES Fin al Result [facility]) [address] [place] [address] * CYTOMEGALOVIRUS ANTIBODY IGG BLOOD (06/16/2024 4:15 PM CDT) Pathologist [facility] Cytomegalovirus Antibody IgG <0.20 <=0.70 U/mL 06/19/2024 6:14 AM CDT [facility] ([facility]) Comment: INTERPRETIVE INFORMATION: Cytomegalovirus Antibody, IgG 0.59 [...] laboratory at the same time. Performed By: [facility] [address] [place] [address] Fisher Trot Line: Mk Egan MD, PhD CLIA Number: [id number] Blood BLOOD SPECIMEN / Unknown Lab Venipuncture / Unknown 06/16/2024 4:15 PM CDT 06/16/2024 5:17 PM CDT Alan Davenport MD LAB - CHEMISTRY ORDERABLES Fi nal Result Performing Organization Address [facility]/ZIP Co de Phone Number [facility]) [address] [place] [address] * TRANSFERRIN (06/16/2024 4:15 PM CDT) [facility] Transferrin 210 174 - 382 mg/dL 06/16/2024 5:30 PM CDT [facility] Blood BLOOD SPECIMEN / Unknown Lab Venipuncture / Unknown 06/16/2024 4:15 PM CDT 06/16/2024 5:15 PM CDT Alan Davenport MD LAB - CHEMISTRY ORDERABLES Fi nal Result Performing Organization Address City/[facility] Co de Phone Number [address] [address], [facility] [phone] * TOXOPLASMA GONDII ANTIBODY IGG (06/16/2024 4:15 PM CDT) [facility] Toxoplasma Antibody IgG <3.0 <=8.8 IU/mL 06/18/2024 1:52 AM CDT [facility]) Comment: INTERPRETIVE INFORMATION: Toxoplasma Ab, IgG 7.1 [...] the amount of antibody present. Performed By: [facility] [address] [place] [address] Fisher Trot Line: Mk Egan MD, PhD CLIA Number: [id number] Blood BLOOD SPECIMEN / Unknown Lab Venipuncture / Unknown 06/16/2024 4:15 PM CDT 06/16/2024 5:16 PM CDT us Alan Davenport MD LAB - CHEMISTRY ORDERABLES Fi nal Result Performing Organization Address City/State/[facility] Co de Phone Number [facility] ([facility]) [address] [place] [address] * (ABNORMAL) HEMOGLOBIN A1C (06/16/2024 4:15 PM CDT) Hemoglobin A1c 6.2(H) <=5.6 % 06/17/2024 8:05 AM CDT [facility] Estimated Average Glucose 131 mg/dL 06/17/2024 8:05 AM T [facility] Comment: HbA1c Interpretation: Normal : < 5.7% Pre-diabetes: 5.7-6.4% Diabetes: Equal to or greater than 6.5% Test results diagnostic of diabetes should be repeated for confirmation. Treatment target values recommended by ADA and other clinical organizations should be used to evaluate metabolic control in patients. Reference: [place] Diabetes Association, Standards of Care in Diabetes [...] LAB - CHEMISTRY ORDERABLES Fin al Result [facility] [place] [address], [facility] [phone] * NICOTINE + METABOLITES BLOOD (06/16/2024 4:15 PM CDT) Pathologist [facility] Nicotine <5 ng/mL 06/19/2024 11:28 PM CDT [facility] ([facility]) Comment: INTERPRETIVE INFORMATION: Nicotine and Metabolites, Serum [...] developed and its performance characteristics determined by [facility]. It has not been cleared or approved by the US Food and Drug Administration. This test was performed in a CLIA certified laboratory and is intended for clinical purposes. Performed By: [facility] [address] [place] [address] Fisher Trot Line: Mk Egan MD, PhD CLIA Number: [id number] Cotinine <5 ng/mL 06/19/2024 11:28 PM CDT [facility]) Blood BLOOD SPECIMEN / Unknown Lab Venipuncture / Unknown 06/16/2024 4:15 PM CDT 06/16/2024 5:15 PM CDT Alan Davenport MD LAB - CHEMISTRY ORDERABLES Fi nal Result [facility]) [address] [place] [address] * (ABNORMAL) CBC W AUTO DIFFERENTIAL (06/16/2024 4:15 PM CDT) WBC 10.8(H) 4.0 - 10.7 x10E9/L 06/16/2024 5:09 PM [facility] RBC Count 3.08(L) 4.30 - 5.80 x10E12/L 06/16/2024 5:09 PM [facility] Hemoglobin 9.5(L) 13.3 - 17.5 g/dL 06/16/2024 5:09 PM [facility] Hematocrit 28.6(L) 38.7 - 51.1 % 06/16/2024 5:09 PM [facility] MCV 92.9 80.0 - 98.0 fL 06/16/2024 5:09 PM [facility] MCH 30.8 26.7 - 33.6 pg 06/16/2024 5:09 PM [facility] MCHC 33.2 31.7 - 36.3 g/dL 06/16/2024 5:09 PM [facility] RDW-CV 14.8 11.3 - 14.8 % 06/16/2024 5:09 PM [facility] Platelet Count 154 150 - 420 x10E9/L 06/16/2024 5:09 PM [facility] MPV 11.3 7.8 - 11.4 fL 06/16/2024 5:09 PM [facility] Neutrophil % 77.5(H) 41.0 - 74.0 % 06/16/2024 5:09 PM [facility] Lymphocyte % 10.0(L) 17.0 - 47.0 % 06/16/2024 5:09 PM [facility] Monocyte % 9.5 3.0 - 11.0 % 06/16/2024 5:09 PM [facility] Eosinophil % 0.9 0.0 - 7.0 % 06/16/2024 5:09 PM [facility] Basophil % 0.2 0.0 - 1.6 % 06/16/2024 5:09 PM [facility] Immature Granulocytes % 1.9(H) 0.0 - 1.0 % 06/16/2024 5:09 PM [facility] Neutrophil Absolute 8.33(H) 1.60 - 7.50 x10E9/L 06/16/2024 5:09 PM CDT [facility] Lymphocyte Absolute 1.08 1.00 - 4.40 x10E9/L 06/16/2024 5:09 PM CDT [facility] Monocyte Absolute 1.02(H) 0.15 - 1.00 x10E9/L 06/16/2024 5:09 PM T [facility] Eosinophil Absolute 0.10 0.00 - 0.60 x10E9/L 06/16/2024 5:09 PM CDT [facility] Basophil Absolute 0.02 0.00 - 0.13 x10E9/L 06/16/2024 5:09 PM [facility] Blood BLOOD SPECIMEN / Unknown Lab Venipuncture / Unknown 06/16/2024 4:15 PM CDT 06/16/2024 5:02 PM CDT Alan Davenport MD LAB - HEMATOLOGY ORDERABLES F inal Result [address] [address], [place] [phone] * PROSTATE SPECIFIC ANTIGEN SCREEN (06/16/2024 4:15 PM CDT) PSA Total 2.8 <4.0 ng/mL 06/16/2024 5:47 PM CDT [facility] Blood BLOOD SPECIMEN / Unknown Lab Venipuncture / Unknown 06/16/2024 4:15 PM CDT 06/16/2024 5:14 PM CDT Narrative [facility] - 06/16/2024 5:47 PM CDT PSA values will vary depending on the testing procedure used. Results are not comparable across different test methods. [facility] uses the [employer] Alinity immunoassay test method. us Alan Davenport MD LAB - CHEMISTRY ORDERABLES Fi nal Result Performing Organization Address City/[facility]/ZIP Co de Phone Number [address] [address], [place] [phone] * (ABNORMAL) PHOSPHORUS BLOOD (06/16/2024 4:15 PM CDT) Phosphorus 7.6(H) 2.8 - 5.1 mg/dL 06/16/2024 5:31 PM CDT [facility] Blood BLOOD SPECIMEN / Unknown Lab Venipuncture / Unknown 06/16/2024 4:15 PM CDT 06/16/2024 5:02 PM CDT us Alan Davenport MD LAB - CHEMISTRY ORDERABLES Fi nal Result [address] [address], [place] [phone] * IRON BLOOD (06/16/2024 4:15 PM CDT) Pathologist [facility] Iron 73 50 - 175 ug/dL 06/16/2024 5:30 PM CDT [facility] Blood BLOOD SPECIMEN / Unknown Lab Venipuncture / Unknown 06/16/2024 4:15 PM CDT 06/16/2024 5:15 PM CDT us Alan Davenport MD LAB - CHEMISTRY ORDERABLES Fi nal Result Performing Organization Address City/[facility]/ZIP Co de Phone Number [address] [address], [place] [phone] * HEPATITIS B CORE ANTIBODY (06/16/2024 4:15 PM CDT) [facility] HBc Antibody Total Non-reacti ve Non-reacti ve 06/16/2024 5:50 PM CDT [facility] Blood BLOOD SPECIMEN / Unknown Lab Venipuncture / Unknown 06/16/2024 4:15 PM CDT 06/16/2024 5:15 PM CDT us Alan Davenport MD LAB - CHEMISTRY ORDERABLES Fi nal Result [address] [address], [facility] [phone] * HEPATITIS B SURFACE ANTIGEN W RFLX CONFIRMATION (06/16/2024 4:15 PM CDT) [facility] Hepatitis B Virus Surface Antigen Non-reacti ve Non-reacti ve 06/16/2024 5:50 PM CDT [facility] Blood BLOOD SPECIMEN / Unknown Lab Venipuncture / Unknown 06/16/2024 4:15 PM CDT 06/16/2024 5:15 PM CDT Alan Davenport MD LAB - CHEMISTRY ORDERABLES Fi nal Result Performing Organization Address [facility] Co de Phone Number [address] [address], [facility] [phone] * HEPATITIS C ANTIBODY (06/16/2024 4:15 PM CDT) [facility] Hepatitis C Antibody Non-react sylvie Non-reac tive 06/16/2024 5:50 PM CDT [facility] Comment:Hepatitis C Antibody screen indicates no [...] ORDERABLES Fi nal Result Performing Organization Address City/[facility]/ZIP Co de Phone Number [address] [address], [facility] [phone] * (ABNORMAL) HEPATITIS A ANTIBODY (06/16/2024 4:15 PM CDT) [facility] Hepatitis A Virus Antibody Total Positive( A) Negative 06/17/2024 7:14 PM CDT [facility] ([facility]) Comment: The positive anti-HAV is consistent with recent or remote Hepatitis A infection or antibody response to HAV vaccination. False positive anti-HAV can occur. Performed By: [facility] [address] [place] [address] Fisher Trot Line: Mk Egan MD, PhD CLIA Number: [id number] Blood BLOOD SPECIMEN / Unknown Lab Venipuncture / Unknown 06/16/2024 4:15 PM CDT 06/16/2024 5:12 PM CDT Alan Davenport MD LAB - CHEMISTRY ORDERABLES Fi nal Result Performing Organization Address City/[facility]/ZIP Co de Phone Number [facility] ([facility]) [address] [place] [address], [facility] * (ABNORMAL) LIPID PROFILE (06/16/2024 4:15 PM CDT) Cholesterol Total 112 <200 mg/dL 06/16/2024 5:31 PM CDT [facility] HDL 32(L) >40 mg/dL 06/16/2024 5:31 PM T [facility] Comment: ATP III Classification of HDL Cholesterol: <40 mg/dL: Considered a major risk factor. >60 mg/dL: Considered a negative risk factor. LDL Calculated 53 <100 mg/dL 06/16/2024 5:31 PM T [facility] Comment: ATP III Classification of LDL Cholesterol: <100 mg/dL: Optimal 100 - 129 mg/dL: Near Optimal/Above Optimal 130 - 159 mg/dL: Borderline High 160 - 189 mg/dL: High >190 mg/dL: Very High Triglycerides 134 <150 mg/dL 06/16/2024 5:31 PM T [facility] Comment: ATP III Classification of Triglycerides: <150 mg/dL: Normal 150 - 199 mg/dL: Borderline High 200 - 400 mg/dL: High >500 mg/dL: Very High Blood BLOOD SPECIMEN / Unknown Lab Venipuncture / Unknown 06/16/2024 4:15 PM CDT 06/16/2024 5:02 PM CDT Maylin Cutler DO LAB - CHEMISTRY ORDERABLES Fin al Result [facility] [address] [place] [address], [facility] [phone] * US Thyroid (06/16/2024 2:32 PM CDT) [...] Report dictated by Otis Bocanegra MD, (residential door installer). I, Raymundo Hanson MD have personally reviewed and interpreted this examination/study. > Interpreting Provider: Raymundo Hanson MD on 06/16/2024 2:38 PM Narrative 06/16/2024 2:38 PM CDT PROCEDURE: US THYROID, DATE/TIME OF EXAM: 06/16/2024 2:32 PM, LOCATION [facility] INDICATION: Z76.82: Pre-kidney transplant, listed N18.6: [...] THYROID, DATE/TIME OF EXAM: 06/16/2024 2:32 PM, [facility] INDICATION: Z76.82: Pre-kidney transplant, listed N18.6: [...] Report dictated by Otis Bocanegra MD, (residential door installer). I, Raymundo Hanson MD have personally reviewed [...] LVOT pk grad 4.081 mmHg [facility] LVOT pk dontrell 101.008 cm/s [facility] CV F U PACS LVOT VTI 23.007 cm [facility] CV [facility] I PACS RV-joy basal diam 3.384 cm [facility] RVIDd 3.35 cm [facility] I PACS RVOT diam Doppler 3.341 cm SS M CV [facility] PACS RVOT pk dontrell 65.451 cm/s [facility] CV F U PACS RVOT VTI 14.358 cm [facility] CV [facility] I PACS LA size 5.077 cm [facility] CV [facility] I PACS LA vol BP 93.015 ml [facility] I PACS RA area 12.944 cm [facility] CV [facility] PACS AV area pk dontrell 2.817 cm [facility] CV [facility] PACS AV area cont VTI 2.62 cm [facility] CV [facility] PACS AV pk grad 5.56 mmHg [facility] CV FU PACS AV mn grad 2.95 mmHg [facility] CV FU PACS AV pk dontrell 117.896 cm/s [facility] CV [facility] I PACS AV VTI 28.874 cm [facility] CV [facility] I PACS MV A pk dontrell 101.425 cm/s [facility] CV [facility] PACS MV E pk dontrell 116.678 cm/s [facility] CV F U PACS MV E' lateral dontrell 6.619 cm/s SS M CV [facility] PACS PV pk dontrell 64.914 cm/s [facility] I PACS PV VTI 13.546 cm [facility] CV [facility] I PACS TAPSE 2.458 cm [facility] CV [facility] I PACS TR pk dontrell 304.537 cm/s [facility] CV [facility] I PACS Ascending aorta 3.397 cm [facility] IVC Diam Expiration 1.657 cm [facility] AV area index 1.068 cm /m [facility] LA vol index 0.038 l/m [facility] [...] 1:12 PM Patient Status: O/P Study [facility]: Technically Difficult Exam Type: [...] Provider: Alan Davenport Attending Physician: Alan Davenport Telephone Worker: Diane Merlos Left Ventricle Left ventricular systolic [...] Guido on 06/16/2024 07:51 PM Reviewed by Sandra Severino on 06/16/2024 02:26 PM Procedure Note [...] 1:12 PM Patient Status: O/P Study Site: [facility] Primary [facility] Technical Quality: Technically Difficult Exam Type: [...] Provider: Alan Davenport Attending Physician: Alan Davenport Telephone Worker: Diane Merlos Left Ventricle Left ventricular systolic [...] Fellow Lala Severino on 06/16/2024 02:26 PM us Alan Davenport MD ECHO CUPID Final Result [...] Santiago Garcia MD on 06/16/2024 1:22 PM us Alan Davenport MD DIAGNOSTIC IMAGING ORDERABLES Final [...] 08/02/2020. 2.Peritoneal dialysis catheter in the pelvis. Ydnsb-lr-txrwclss volume ascites throughout the abdomen and pelvis, likely related to dialysis. 3.Moderate to severe atherosclerotic calcification of bilateral common iliac arteries as well as bilateral external iliac arteries 4.Prostatomegaly. 5.Bilateral subcentimeter lung nodules, unchanged since 03/04/2022. > Dictated by Ilene Borja MD (residential door installer). I, Junior Hurley MD have personally reviewed and interpreted this examination/study. 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 2.Peritoneal dialysis catheter in the pelvis. Rjknn-ws-mvckkcsf volume ascites throughout the abdomen and pelvis, likely related to dialysis. 3.Moderate to severe atherosclerotic calcification of bilateral common iliac arteries as well as bilateral external iliac arteries 4.Prostatomegaly. 5.Bilateral subcentimeter lung nodules, unchanged since 03/04/2022. > Dictated by Ilene Borja MD (residential door installer). IJunior MD have personally reviewed and interpreted this examination/study. > Interpreting Provider: Junior Hurley MD on 52:17 PM us Alan Davenport MD CT ORDERABLES Final Result [...] 54%. > Dictated by Neeraj Johnson MD (Guidance And Control System Engineer) 06/16/2024 10:25 AM Ariel Leigh MD have personally reviewed and interpreted this examination/study. > Interpreting Provider: rAiel Araya MD on 06/17/2024 8:36 AM Narrative 06/17/2024 8:36 AM CDT PROCEDURE: NM MYOCARD PERF REST STRESS DATE/TIME OF EXAM: 06/16/2024 12:44 PM CLINICAL INFORMATION: None relevant/not provided if blank. 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, without long-term current use of insulin ([facility]) N18.6: Type 2 diabetes mellitus with chronic kidney disease on chronic dialysis, without long-term current use of insulin ([facility]) Z99.2: Type 2 diabet Rest and Pharmacologic [...] listed N18.6: ESRD (end stage renal disease) ([facility]) Z99.2: Dependence on renal dialysis 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 > Dictated by Neeraj Johnson MD (Guidance And Control System Engineer) 06/16/2024 10:25AM I, Ariel Araya MD have personally reviewed and interpreted this examination/study. > Interpreting Provider: Ariel Araya MD on 06/17/2024 8:36 AM Alan Davenport MD [place] ORDERABLES Final Result * STRESS TEST Pharm-Lexiscan (Regadenoson) (06/16/2024 11:55 AM CDT) [facility] Signature Predicted METS 7.2 METS [facility] V [...] from Last 3 Months Insurance AETNA MEDICARE ADV AETNA AET AETNA MEDICARE ADV * Guarantor: GRACE INTERIANO Account Type Relation to Patient Date of Phone Billing Address Personal/Family [address] [place] [address] * Guarantor: GRACE INTERIANO Account Type Relation to Patient Date of Phone Billing Address Personal/Family [address] [place] [address] Advance Directives * Full Code (Latest Code Status on File) Date Activated Date Inactivated Comments 08/18/2024 3:16 PM 08/19/2024 4:36 PM * Full Code Date Activated Date Inactivated Comments 07/21/2024 4:56 PM 07/21/2024 7:23 PM * Full Code Date Activated Date Inactivated Comments 07/21/2024 4:56 PM 07/21/2024 4:56 PM * Full Code Date Activated Date Inactivated Comments 08/04/2020 11:48 AM 08/08/2020 9:40 AM Care Teams Production Shift Supervisor Relationship Specialty Start Date End Date Jeff Strickland MD [address] [place] [address] PCP - General 03/05/18 [place] [address] [address] Orthopedic Surgery 03/28/17
--- OUTSIDE RECORDS SUMMARY | 2024-08-30 18:39 | XMS_ITS ---
Author Organization [facility] Address [address] [place] [address] Care Team Providers Care Afternoon Babysitter Name Role Phone Deandre Bojorquez MD Unavailable [phone] Jeff Strickland MD Primary Care Provider [phone] Transplant Episode Kidney Candidate [facility] ([place], [place]) - [facility] Center waitlisted on 05/06/2022 Marked as Inactive on 12/19/2022 Reason: Temporarily too Sick Kidney CoordinatorSavanna Edwards RN Phone: N/A Fax: N/A Email: N/A Scores Score Value Updated Exceptions/Reas ons CPRA Not available EPTS (Calc) 96 08/30/2024 [place] Organ Diagnosis Organ Primary Contributory Kidney Diabetes Mellitus - Type II Hype rtensive Nephrosclerosis Care Team Name Role Phone Fax Email Savanna Edwards RN Kidney Coordinator N/A N/A N/A Alan Mccall MD Referring Physician [phone] N/A Anjali Mott LMSW Dry Cans Back Tender N/A N/A N/A Millie Lindquist Log Yard Derrick Operator N/A N/A N/A Events Pre-Transplant Referred: 12/05/2021 Evaluation began: 12/13/2021 Committee: 05/02/2022 [facility] qualified: 01/17/2020 Center waitlisted: 05/06/2022 Dialysis History Dialysis History Start End Type Comments Center 01/17/2020 Peritoneal [facility] Information Center Phone Fax Address [facility] [phone] [address] [place] [phone]
--- NOTE | 2024-08-30 19:18 | PC.NURSE ---
saying patient doesn't want to wait and is leaving
--- OUTSIDE RECORDS SUMMARY | 2024-08-30 20:36 | XMS_ITS | Encounter Summary ---
Author Organization [facility] Address [address] [place] [address] Phone Care Team Providers Care Drawing Machine Operator Name Role Phone Jeff Strickland MD Primary Care Provider Chan Nicholas MD Unavailable [phone] Alan Mccall MD Unavailable [phone] Lorna Lantigua MD Unavailable [phone] Juliette Savage RN Unavailable [phone] Pepito Haro MD PhD Unavailable Solange Guido MD Unavailable [phone] Letha Gil RN Unavailable [phone] Encounter Details Date Type Department Care Team (Late st Contact Info) Description 05/02/[address] [facility] Ophthalmology [address] [place] [address] 1st [place] [address] Corina Ventura MD PhD [address] [facility] 6 [place] [address] Social History Tobacco Use Types [...] file Legal Sex Male 2:23 AM MANAGER DOCUMENT CONTROL Gender Identity Not on file Sexual Orientation [...] COVID: Suspected 03/24/2023 03/24/2023 03/24/2023 5:45 PM MANAGER DOCUMENT CONTROL COVID19 03/24/2023 03/24/2023 04/08/2023 3:06 AM MANAGER DOCUMENT CONTROL COVID: Recovered Comment:Added based on recent COVID infection. 04/08/2023 04/10/2023 07/07/2023 3:06 AM C DT COVID: Suspected 04/10/2024 04/10/2024 04/11/2024 1:24 AM MANAGER DOCUMENT CONTROL C. difficile suspected 04/11/2024 04/11/202404/11 1:21 PM MANAGER DOCUMENT CONTROL documented as of this encounter Eye Exam [...] arcade Normal Periphery Normal Normal Care Teams Drawing Machine Operator Relationship Specialty Start Date End Date Jfef Strickland MD [address] [address] PCP - General Family Medicine 04/02/18 Chan Nicholas MD [facility] [address] [address] Consulting Physician Gastroenterology 11/24/18 Alan Mccall MD [facility] [address] [address] Referring Physician Nephrology 11/24/18 Lorna Lantigua MD [facility] [address] [address] Consulting Physician Cardiology 11/24/18 07/22/23 Juliette Savage, RN [address] [place] [address] Nurse Navigator 06/04/21 03/14/22 Pepito Haro MD PhD [address] [place] [address] Consulting Physician Neurosurgery 12/03/22 Solange Guido MD [address] [facility] [address] [place] [address] Referring Physician Cardiovascular Disease 07/23/23 Letha Gil, RN 4590 [facility] 5300 [place] [address] SHOP Outpatient Liability Analyst 04/14/24 04/18/24 documented as of this encounter
--- OUTSIDE RECORDS SUMMARY | 2024-08-30 20:37 | XMS_ITS | Encounter Summary ---
Author Organization [facility] Address [facility] [place] [address] Care Team Providers Care Melting Furnace Skimmer Name Role Phone Deandre Bojorquez MD Unavailable [phone] Jeff Strickland MD Primary Care Provider [phone] Encounter Details Date Type Department Care Team (Late st Contact Info) Description 11/21/2023 Lab Requisition [facility] MAIN LAB [address] [place] [address] Alan Davenport MD 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 Gender Identity Male 07/02/2021 2:37 PM CDT [...] CDT Hospital Encounter [facility] [address] [place] [address] Vanessa Medina MD [facility] [address] [address] Cardiac Catheterization 09/01/2024 10:50 AM CDT - 09/01/2024 12:36 PM CDT Surgery [facility] - Cardiac Chemical Research Technician [address] [place] [address] Vanessa Medina MD [address] [place] [address] Staged Percutaneous Coronary Intervention 09/13/2024 10:40 AM CDT Office Visit [facility] - Endocrinology [address] [place] [address], [place] [address] Niraj Turner MD [address] [place] [address] Div [place] [address] 09/20/2024 2:20 PM CDT Office Visit [facility] - [facility] [address] [facility] [address] [place] [address] Hannah Goodman MD [address] [facility] [address] [place] [address] 10/13/2024 1:00 PM CDT [facility] [address] [facility], [place] [address] [place] [address] Maylin Cutler DO [address] [facility] [address] [place] [address] documented as of this encounter Procedures Procedure Name Priority Date/Time Associated Diagnosis Comments HOLD HLA SPECIMEN Routine 11/18/2023 12: 16 PM CDT documented in this encounter Results * HOLD HLA SPECIMEN (11/18/2023 12:16 PM CDT) Hold HLA Specimen 11/21/2023 1:31 PM CDT [facility] ([facility]) Comment:The Hold HLA specime n has been received into the lab and will be held for 5 years at 4 degrees. Blood BLOOD SPECIMEN / Unknown 11/18/2023 12:16 PM CDT 11/21/2023 12:17 PM CDT us Alan Davenport MD LAB - BLOOD BANK ORDERABLES F inal Result [facility] ([facility]) [address] documented in this encounter Visit Diagnoses Not on filedocumented in this encounter Care Teams Melting Furnace Skimmer Relationship Specialty Start Date End Date Jeff Strickland MD [address] [place] [address] PCP - General 03/05/18 [place] [address] [place] [id number] Orthopedic Surgery 03/28/17 documented as of this encounter
--- OUTSIDE RECORDS SUMMARY | 2024-08-30 20:37 | XMS_ITS | Encounter Summary ---
Author Organization [facility] Address [facility] [place] [address] Care Team Providers Care Help Desk Administrator Name Role Phone Deandre Bojorquez MD Unavailable [phone] Jeff Strickland MD Primary Care Provider [phone] Encounter Details Date Type Department Care Team (Late st Contact Info) Description 04/29/2024 Lab Requisition [facility] MAIN LAB [address] [place] [phone] Alan Davenport MD [facility] [address] Social History Tobacco Use Types Packs/Day Years Used Date Smoking Tobacco: Never Smokeless Tobacco: Never Alcohol Use Standard Drinks/Week Comments Not Currently 0 (1 standard drink = 0.6 oz pur e alcohol) socially in past Sex and Gender Information Value Date Recorded Sex Assigned at Male 07/02/2021 2:37 PM CDT Legal Sex 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 Gender Identity Male 07/02/2021 2:37 PM CDT [...] CDT Hospital Encounter [facility] [address] [place] [address] Vanessa Medina MD [facility] [address] [address] Cardiac Catheterization 09/01/2024 10:50 AM CDT - 09/01/2024 12:36 PM CDT Surgery [facility] - Cardiac Janitorial Services Supervisor [address] [place] [address] Vanessa Medina MD [address] [place] [address] Staged Percutaneous Coronary Intervention 09/13/2024 10:40 AM CDT Office Visit [facility] - Endocrinology [address] [place] [address], [place] [address] Niraj Turner MD [address] [place] [address] [place] [address] 09/20/2024 2:20 PM CDT Office Visit [facility] - [facility]iology [address] [facility], [facility] [address] [place] [address] Hannah Goodman MD [address] [facility] [address] [place] [address] 10/13/2024 1:00 PM CDT Office Visit [facility] - Cardiology [address] [facility], [place] [address] [place] [address] Maylin Cutler DO [address] [facility] [address] [place] [address] documented as of this encounter Procedures Procedure Name Priority Date/Time Associated Diagnosis Comments HOLD HLA SPECIMEN Routine 04/27/2024 1:4 8 PM CDT documented in this encounter Results * HOLD HLA SPECIMEN (04/27/2024 1:48 PM CDT) Hold HLA Specimen 04/29/2024 3:02 PM CDT [facility] ([facility]) Comment:The Hold HLA specime n has been received into the lab and will be held for 5 years at 4 degrees. Blood BLOOD SPECIMEN / Unknown 04/27/2024 1:48 PM CDT 04/29/2024 1:49 PM CDT us Alan Davenport MD LAB - BLOOD BANK ORDERABLES F inal Result [facility] ([facility]) [address] [place], [place] [id number] [place] [address] documented in this encounter Visit Diagnoses Not on filedocumented in this encounter Care Teams Help Desk Administrator Relationship Specialty Start Date End Date Jeff Strickland MD [address] [place] [address] PCP - General 03/05/18 [place] [address] [place] [id number] Orthopedic Surgery 03/28/17 documented as of this encounter
--- OUTSIDE RECORDS SUMMARY | 2024-08-30 20:37 | XMS_ITS | Clinical Summary ---
Author Organization [facility] Address [facility] [place] [address] Care Team Providers Care Alternative Financing Specialist Name Role Phone Jeff Strickland MD Primary Care Provider [phone] Allergies Active Allergy Reactions Criticality Noted Date [...] by mouth nightly at bedtime. Active Multiple Vitamins-Nichols als (PRESERVISION AREDS 2 OR) Take 1 [...] drink = 0.6 oz pur e alcohol) [facility] Utilities Answer Date Recorded In the past 12 months has th e electric, gas, oil, or water [employer] threatened to shut off services in your [...] slept in a residential (including now)? No 05/02/2023 Sex and Gender Information Value Date Recorded Sex Assigned at Not on file Legal Sex Male 10:10 AM LIBRARIAN SPECIAL LIBRARY Gender Identity Not on file Sexual Orientation [...] 4:39 PM CDT Height 172.7 cm (5' 8) 05/05/2023 4:39 PM CDT Body Mass Index [...] discharge from hospital Lifestyle No Alice Rizzo, [facility] Insurance [employer] Advance Directives * Full Code (Latest Code Status on File) Date Activated Date Inactivated Comments 05/02/2023 12:46 AM 05/03/2023 12:26 PM Care Teams Alternative Financing Specialist Relationship Specialty Start Date End Date Jeff Strickland MD [address] [place] [address] PCP - General FAMILY PRACTICE 02/22/23
--- OUTSIDE RECORDS SUMMARY | 2024-08-30 20:37 | XMS_ITS | Encounter Summary ---
Author Organization [facility] Address [address] [facility] [place] [address] Care Team Providers Care Shoe Cobbler Name Role Phone Deandre Bojorquez MD Unavailable [phone] Jeff Strickland MD Primary Care Provider [phone] Reason for Referral * Radiology Services (Routine) - Open Specialty Diagnoses / Procedures Referred By Contac t Referred To Contact Diagnoses PAD (peripheral artery disease) Procedures VAS ARTERIAL ANKLE ARM INDEX Hannah Goodman MD [address] [facility] [address] [place] [address] Phone: tel: fax: Referral ID Status Reason Start Date Expiration Date Visits Re quested Visits Authorized [id number] Open 08/30/2024 08/30/2025 1 1 Reason for Visit * Reason Comments Establish Care Encounter Details Date Type Department Care Team (Late st Contact Info) Description 08/30/2024 10:00 AM CDT Office Visit [facility] - Cardiology [address] [facility], [place] [address] [place] [address] Hannah Goodman MD [address] [facility] [address] [place] [phone] PAD (peripheral artery disease) (Primary Dx); Arterial [...] PM CDT Legal Sex Male 10:14 PM PROPERTY UNDERWRITER Gender Identity Male 07/02/2021 2:37 PM CDT [...] CL TI [chronic limb threatening ischemia] # [place] class V # Peripheral artery disease -I [...] were not included. Yanna Goodman MD MPH Supply Chain Intern, Endovascular Interventionalist, Product Designer, Division of Cardiology Department of Internal Medicine [facility] phone: [phone] Clinic [facility] OUTPATIENT Interventional/Endovascular CARDIOLOGY CLINIC PATIENT:Kendall Carl [...] CL TI [chronic limb threatening ischemia] # [place] class V # Peripheral artery disease -I [...] of the time was also spent in hugi-cy-lsyp interaction with the patient as well as formulating a plan for management. Thank you for allowing us to participate in the care of your patient and please do not hesitate to reach out to us if any questions or concerns. Yanna Goodman MD MPH [1] Past Medical History: Diagnosis Date Arthropathy Dr Strickland manages. CHF (congestive heart failure) ([facility]) 2 yrs ago Communication Arts Lecturer is Dr. Becerra in [place]. CKD (chronic kidney disease), stage V ([facility]) Community acquired pneumonia 2018 [facility] hospitalized. Diabetes mellitus (HCC) 20 years. [place]. Functional Analyst Dr. Davis at [place]. 03/26/21 last seen. Esophageal reflux takes med ESRD (end stage renal disease) (HCC) on PD as of 11/10/20 ESRD on peritoneal dialysis ([facility]) Hypercholesteremia 5-10 yrs meds Hypertension 40's takes meds. Hypothyroidism meds 20 years Kidney stones 5-6 years ago had 2 in the same year. No urologist. Malignancy (HCC) right kidney 2012 Obstructive sleep apnea [address] Sergey Miller remember doctors name SHABNAM on CPAP Renal cell carcinoma (HCC) [address] [place] Pruett surgeon. followed up every 6 [...] mouth once daily 90 tablet 3 B Hjbcsni-W-Snpwr Acid (Dialyvite 800) 0.8 MG 1 tablet [...] greater than 180) 90 tablet 3 HYDROcodone-acetaminophen ([place]) 5-325 MG tablet Take 1 (one) tablet [...] CDT Hospital Encounter [facility] R[facility]O OP [address] [place] [address] Vanessa Medina MD [facility]4 [address] [address] Cardiac Catheterization 09/01/2024 10:50 AM CDT - 09/01/2024 12:36 PM CDT Surgery [facility] - Cardiac Certified Surgical Tech/First Assistant [address] [place] [address] Vanessa Medina MD [address] [place] [address] Staged Percutaneous Coronary Intervention 09/13/2024 10:40 AM CDT Office Visit [facility] - Endocrinology [facility]5 [facility], [place] [address] Niraj Turner MD [facility]5 [facility] 2L [place] [address] 09/20/2024 2:20 PM CDT Office Visit [facility] - Cardiology [address] [place] [address], [address] [address] Hannah Goodman MD [facility] DIV OF CARDIOLOGY [address] [place] [address] 10/13/2024 1:00 PM CDT Office Visit [facility] - Cardiology [address] [place] [address], [address] [phone] Maylin Cutler DO [address] [facility] [address] [place] [address] Scheduled Orders Name Type Priority Associated Diagnoses [...] unspecified vessel or lesion type, unspecified whether [place] or transplanted heart Abnormal findings on cardiac [...] unspecified vessel or lesion type, unspecified whether [place] or transplanted heart Abnormal findings on cardiac catheterization documented in this encounter Care Teams Shoe Cobbler Relationship Specialty Start Date End Date Jeff Strickland MD [address] [place] [address] PCP - General 03/05/18 [place] [address] [place] [address] Orthopedic Surgery 03/28/17 documented as of this encounter
--- OUTSIDE RECORDS SUMMARY | 2024-08-30 20:37 | XMS_ITS ---
Author Organization [facility] Address [facility] [place] [address] Care Team Providers Care Metal Buildings Assembler Name Role Phone Jeff Strickland MD Primary Care Provider Chan Nicholas MD Unavailable [phone] Alan Mccall MD Unavailable [phone] Pepito Haro MD PhD Unavailable Solange Guido MD Unavailable [phone] Active Problems Problem Noted Date Diagnosed Date [...] damage Assessment & Plan (03/09/2024 6:25 PM MOLD MAKING PLASTICS SHEETS SUPERVISOR): Vision OD trends mild improvement, [...] We discussed that genetic results would not climate change analyst. Given we have exhausted [...] 03/26/2021 Assessment & Plan (03/26/2021 1:17 PM MOLD MAKING PLASTICS SHEETS SUPERVISOR): Enlarged mild sella turcica on [...] units Assessment & Plan (03/26/2021 1:17 PM MOLD MAKING PLASTICS SHEETS SUPERVISOR): Chronic, uncontrolled, improving A1c today [...] WNL Assessment & Plan (03/26/2021 1:16 PM MOLD MAKING PLASTICS SHEETS SUPERVISOR): Pt currently on Levothyroxine 112 [...] 11/18/2018 Assessment & Plan (01/21/2019 2:02 PM MOLD MAKING PLASTICS SHEETS SUPERVISOR): Symptomatic. Will request for esophageal [...] well Assessment & Plan (03/26/2021 1:16 PM MOLD MAKING PLASTICS SHEETS SUPERVISOR): On statin therapy Tolerating well [...] nephrectomy. 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 [id number] Current Treatment and Therapy Plans No current [...] were not included. Kendall Carl 1955 Referring Sleeve Fixer: Alan Mccall Dialysis Info: NOD GFR 13 Type: Time: (Not currently on dialysis) days Blood Type: O NEG Body mass index is 37.36 kg/m . ALERTS Track Moving Machine Operator: needs to establish Past Medical History: Diagnosis Date Arthropathy RA. Dr Strickland manages. CHF (congestive heart failure) 2 yrs ago Staff Radiologist is Dr. Becerra in [place]. CKD (chronic kidney disease), stage V Community acquired pneumonia 2018 [facility] hospitalized. Diabetes mellitus 20 years. Lantus pen. Esophageal reflux takes med Hypercholesteremia 5-10 yrs meds Hypertension takes meds Hypothyroidism meds 20 years Kidney stones 5-6 years ago had 2 in the same year. Malignancy right kidney 2012 Obstructive sleep apnea 3 years. [facility]. [place] remember doctors name Renal cell [...] file Gets together: Not on file Attends episcopal service: Not on file Active member of [...] is the impression of this social service worker that Kendall Carl has several positive factors for Kidney transplant candidacy from a psychosocial perspective. Patient appears to have appropriate knowledge of illness. Patient has sufficient insurance coverage and stable financial situation for post transplant needs. No concerns regarding substance abuse, legal issues, or mental health needs. Patient has adequate support system and appropriate discharge plan. Plan: public health outreach worker to provide supportive services as needed. Patient appears to be a reasonable candidate for transplant from a psychosocial perspective. -Post transplant arrangement forms are needed prior to being listed. -Updated toxicology results needed, per protocol Psychiatric Consult Recommended: No Transplant Biomathematician: Joy Tam LCSW RD: 11/09/2019 BMI= 36.2, [...] my fitness pal or my food gymnastics coach) - Consume no more than 2000 calories a day E-mailed pt's a 2000 calorie, CKD meal plan. Items Still Pending: Clinic, colonoscopy Acute pain of left shoulder 01/25/2019 03/25/2023 Non-cardiac chest pain 11/18/201803/25 Assessment & Plan (01/21/2019 2:02 PM MOLD MAKING PLASTICS SHEETS SUPERVISOR): The pain is persistent. The patient described [...] has had extensive cardiac workup by the electrical prospecting observer including coronary angiogram. He has chest pain [...]
--- OUTSIDE RECORDS SUMMARY | 2024-08-30 20:37 | XMS_ITS | Encounter Summary ---
Author Organization [facility] Address [address] [place] [address] Care Team Providers Care Otr Company Driver Name Role Phone Deandre Bojorquez MD Unavailable [phone] Jeff Strickland MD Primary Care Provider [phone] Encounter Details Date Type Department Care Team (Late st Contact Info) Description 02/07/2023 Lab Requisition [facility] MAIN LAB [address] [place] [address] Alan Davenport MD [facility] [place] [address] Social History Tobacco Use Types Packs/Day Years Used Date Smoking Tobacco: Never Smokeless Tobacco: Never Alcohol Use Standard Drinks/Week Comments Not Currently 0 (1 standard drink = 0.6 oz pur e alcohol) socially in past Sex and Gender Information Value Date Recorded Sex Assigned at Male 07/02/2021 2:37 PM CDT Legal Sex Male 10:14 PM BEATING MACHINE OPERATOR Gender Identity Male 07/02/2021 2:37 [...] CDT Hospital Encounter [facility] [address] [place] [address] Vanessa Medina MD [facility] [address] Cardiac Catheterization 09/01/2024 10:50 AM CDT - 09/01/2024 12:[address] [facility] - Cardiac Electric Organ Assembler [address] [place] [address] Vanessa Medina MD [address] [place] [address] Staged Percutaneous Coronary Intervention 09/13/2024 10:40 AM CDT Office Visit [facility] - Endocrinology [address] [place] [address], [place] [address] Niraj Turner MD [address] [place] [address] [place] [address] 09/20/2024 2:20 PM CDT Office Visit [facility] [address] [facility] [address] [place] [address] Hannah Goodman MD [address] [facility] [address] [place] [address] 10/13/2024 1:00 PM CDT [facility] [address] [facility], [place] [address] [place] [address] Maylin Cutler DO [address] [facility] [address] [place] [address] documented as of this encounter Procedures Procedure Name Priority Date/Time Associated Diagnosis Comments HOLD HLA SPECIMEN Routine 2023 7:5 8 AM BEATING MACHINE OPERATOR documented in this encounter Results * HOLD HLA SPECIMEN (2023 7:58 AM BEATING MACHINE OPERATOR) Hold HLA Specimen 02/07/2023 9:01 AM BEATING MACHINE OPERATOR [facility]) Comment:The Hold HLA specime n has been received into the lab and will be held for 5 years at 4 degrees. Blood BLOOD SPECIMEN / Unknown 2023 7:58 AM BEATING MACHINE OPERATOR 02/07/2023 7:59 AM BEATING MACHINE OPERATOR us Alan Davenport MD LAB - BLOOD BANK ORDERABLES F inal Result [facility] [address] [place] [address], [facility] documented in this encounter Visit Diagnoses Not on filedocumented in this encounter Care Teams Otr Company Driver Relationship Specialty Start Date End Date Jeff Strickland MD [address] [place] [address] PCP - General 03/05/18 [place] [address] [place] [address] Orthopedic Surgery 03/28/17 documented as of this encounter
--- OUTSIDE RECORDS SUMMARY | 2024-08-30 20:37 | XMS_ITS | Encounter Summary ---
Author Organization [facility] Address [facility]3 [place] [address] Care Team Providers Care Inspection Machine Tender Name Role Phone Deandre Bojorquez MD Unavailable [phone] Jeff Strickland MD Primary Care Provider [phone] Encounter Details Date Type Department Care Team (Late st Contact Info) Description 03/30/2024 Lab Requisition [facility] MAIN LAB [address] [place] [phone] Alan Davenport MD [facility]1 [facility] OF ABD [place] [address] Social History Tobacco Use Types Packs/Day Years Used Date Smoking Tobacco: Never Smokeless Tobacco: Never Alcohol Use Standard Drinks/Week Comments Not Currently 0 (1 standard drink = 0.6 oz pur e alcohol) socially in past Sex and Gender Information Value Date Recorded Sex Assigned at Male 07/02/2021 2:37 PM CDT Legal Sex Male 10:14 PM COOK HELPER FRUIT Gender Identity Male 07/02/2021 2:37 PM CDT [...] CDT Hospital Encounter [facility] [address] [place] [address] Vanessa Medina MD [facility] [address] [address] Cardiac Catheterization 09/01/2024 10:50 AM CDT - 09/01/2024 12:36 PM CDT Surgery [facility] - Cardiac Gas Pumping Station Operator [address] [place] [address] Vanessa Medina MD [address] [place] [address] Staged Percutaneous Coronary Intervention 09/13/2024 10:40 AM CDT Office Visit [facility] - Endocrinology [address] [place] [address], [place] [address] Niraj Turner MD [address] [place] [address] [place] [address] 09/20/2024 2:20 PM CDT Office Visit [facility] [address] [facility], [facility] [address] [place] [address] Hannah Goodman MD [address] [facility] [address] [place] [address] 10/13/2024 1:00 PM CDT Office Visit [facility] - Cardiology [address], [place] [address] [place] [address] Maylin Cutler DO [address] [facility] [address] [place] [address] documented as of this encounter Procedures Procedure Name Priority Date/Time Associated Diagnosis Comments HOLD HLA SPECIMEN Routine 03/25/2024 2:5 1 PM COOK HELPER FRUIT documented in this encounter Results * HOLD HLA SPECIMEN (03/25/2024 2:51 PM COOK HELPER FRUIT) Hold HLA Specimen 03/30/2024 4:01 PM COOK HELPER FRUIT [facility] Comment:The Hold HLA specime n has been received into the lab and will be held for 5 years at 4 degrees. Blood BLOOD SPECIMEN / Unknown 03/25/2024 2:51 PM COOK HELPER FRUIT 03/30/2024 2:51 PM COOK HELPER FRUIT us Alan Davenport MD LAB - BLOOD BANK ORDERABLES F inal Result [facility] [address] [place] [address], [facility] documented in this encounter Visit Diagnoses Not on filedocumented in this encounter Care Teams Inspection Machine Tender Relationship Specialty Start Date End Date Jeff Strickland MD [address] [place] [address] PCP - General 03/05/18 [place] [address] [place] [address] Orthopedic Surgery 03/28/17 documented as of this encounter
--- OUTSIDE RECORDS SUMMARY | 2024-08-30 20:37 | XMS_ITS | Encounter Summary ---
Author Organization [facility] Address [facility] [place] [address] Care Team Providers Care Valet Service Attendant Name Role Phone Deandre Bojorquez MD Unavailable [phone] Jeff Strickland MD Primary Care Provider [phone] Encounter Details Date Type Department Care Team (Late st Contact Info) Description 06/25/2024 Lab Requisition [facility] MAIN LAB [address] [place] [phone] Alan Davenport MD [facility]1 [facility] [place] [address] Social History Tobacco Use Types Packs/Day Years Used Date Smoking Tobacco: Never Smokeless Tobacco: Never Alcohol Use Standard Drinks/Week Comments Not Currently 0 (1 standard drink = 0.6 oz pur e alcohol) socially in past Sex and Gender Information Value Date Recorded Sex Assigned at Male 07/02/2021 2:37 PM CDT Legal Sex Male 10:14 PM NUISANCE ANIMAL DAMAGE CONTROL AGENT Gender Identity Male 07/02/2021 2:37 PM CDT [...] CDT Hospital Encounter [facility] [address] [place] [address] Vanessa Medina MD [facility] [address] Cardiac Catheterization 09/01/2024 10:50 AM CDT - 09/01/2024 12:36 PM CDT Surgery [facility] - Cardiac Etiologist [address] [place] [address] Vanessa Medina MD [address] [place] [address] Staged Percutaneous Coronary Intervention 09/13/2024 10:40 AM CDT Office Visit [facility] - Endocrinology [address] [place] [address], [place] [address] Niraj Turner MD [address] [place] [address] [place] [address] 09/20/2024 2:20 PM CDT Office Visit [facility] - Cardiology [address] [facility], [facility] [address] [place] [address] Hannah Goodman MD [address] [facility] [address] [place] [address] 10/13/2024 1:00 PM CDT [facility] [address] [facility], [place] [address] [place] [address] Maylin Cutler DO [address] [facility] [address] [place] [address] documented as of this encounter Procedures Procedure Name Priority Date/Time Associated Diagnosis Comments HOLD HLA SPECIMEN Routine 06/22/2024 11: 05 AM CDT documented in this encounter Results * HOLD HLA SPECIMEN (06/22/2024 11:05 AM CDT) Hold HLA Specimen 06/25/2024 12:32 PM CDT [facility] ([facility]) Comment:The Hold HLA specime n has been received into the lab and will be held for 5 years at 4 degrees. Blood BLOOD SPECIMEN / Unknown 06/22/2024 11:05 AM CDT 06/25/2024 11:05 AM CDT us Alan Davenport MD LAB - BLOOD BANK ORDERABLES F inal Result [facility] ([facility]) [address] documented in this encounter Visit Diagnoses Not on filedocumented in this encounter Care Teams Valet Service Attendant Relationship Specialty Start Date End Date Jeff Strickland MD [address] [place] [address] PCP - General 03/05/18 [place] [address] [place] [phone] Orthopedic Surgery 03/28/17 documented as of this encounter
--- OUTSIDE RECORDS SUMMARY | 2024-08-30 20:37 | XMS_ITS | Encounter Summary ---
Author Organization [facility] Address [facility]3 [place] [address] Care Team Providers Care Alumni Relations Officer Name Role Phone Deandre Bojorquez MD Unavailable Jeff Strickland MD Primary Care Provider Encounter Details Date Type Department Care Team (Late st Contact Info) Description 10/28/2023 Lab Requisition [facility] MAIN LAB [address] [place] [phone] Alan Davenport MD [facility]1 [facility] [place] [address] Social History Tobacco Use Types Packs/Day Years Used Date Smoking Tobacco: Never Smokeless Tobacco: Never Alcohol Use Standard Drinks/Week Comments Not Currently 0 (1 standard drink = 0.6 oz pur e alcohol) socially in past Sex and Gender Information Value Date Recorded Sex Assigned at Male 07/02/2021 2:37 PM CDT Legal Sex Male 10:14 PM ENGRAVER SEALS Gender Identity Male 07/02/2021 2:37 PM CDT [...] CDT Hospital Encounter [facility] [address] [place] [address] Vanessa Medina MD [facility] [address] [address] Cardiac Catheterization 09/01/2024 10:50 AM CDT - 09/01/2024 12:36 PM CDT Surgery [facility] - Cardiac Housing Quality Standard Inspector [address] [place] [address] Vanessa Medina MD [address] [place] [address] Staged Percutaneous Coronary Intervention 09/13/2024 10:40 AM CDT Office Visit [facility] - Endocrinology [address] [place] [address], [place] [address] Niraj Turner MD [address] [place] [address] [place] [address] 09/20/2024 2:20 PM CDT Office Visit [facility] [address] [facility], [facility] [address] [place] [address] Hannah Goodman MD [address] [facility] [address] [place] [place] [address] 10/13/2024 1:00 PM CDT Office Visit [facility] - Cardiology [address] [facility], [place] [address] [place] [address] Maylin Cutler DO [address] [facility] [address] [place] [address] documented as of this encounter Procedures Procedure Name Priority Date/Time Associated Diagnosis Comments HOLD HLA SPECIMEN Routine 10/22/2023 3:5 0 PM CDT documented in this encounter Results * HOLD HLA SPECIMEN (10/22/2023 3:50 PM CDT) Hold HLA Specimen 10/28/2023 5:00 PM CDT [facility] ([facility]) Comment:The Hold HLA specime n has been received into the lab and will be held for 5 years at 4 degrees. Blood BLOOD SPECIMEN / Unknown 10/22/2023 3:50 PM CDT 10/28/2023 3:50 PM CDT us Alan Davenport MD LAB - BLOOD BANK ORDERABLES F inal Result [facility] ([facility]) [address] [place], [place] [address] [place] [address] documented in this encounter Visit Diagnoses Not on filedocumented in this encounter Care Teams Alumni Relations Officer Relationship Specialty Start Date End Date Jeff Strickland MD [address] [place] [address] PCP - General 03/05/18 [place] [address] [place] [id number] Orthopedic Surgery 03/28/17 documented as of this encounter
--- OUTSIDE RECORDS SUMMARY | 2024-08-30 20:37 | XMS_ITS | Encounter Summary ---
Author Organization [facility] Address [facility]3 [place] [address] Care Team Providers Care Administrative Volunteer Name Role Phone Deandre Bojorquez MD Unavailable [phone] Jeff Strickland MD Primary Care Provider [phone] Encounter Details Date Type Department Care Team (Late st Contact Info) Description 02/04/2024 Lab Requisition [facility] MAIN LAB [address] [place] [phone] Alan Davenport MD [facility] OF ABD [place] [address] Social History Tobacco Use Types Packs/Day Years Used Date Smoking Tobacco: Never Smokeless Tobacco: Never Alcohol Use Standard Drinks/Week Comments Not Currently 0 (1 standard drink = 0.6 oz pur e alcohol) socially in past Sex and Gender Information Value Date Recorded Sex Assigned at Male 07/02/2021 2:37 PM CDT Legal Sex Male 10:14 PM CIRCULATION LIBRARIAN Gender Identity Male 07/02/2021 2:37 PM CDT [...] CDT Hospital Encounter [facility] [address] [place] [address] Vanessa Medina MD [facility]4 [address] [address] Cardiac Catheterization 09/01/2024 10:50 AM CDT - 09/01/2024 12:36 PM CDT Surgery [facility] - Cardiac Security Compliance Engineer [address] [place] [address] Vanessa Medina MD [address] [place] [address] Staged Percutaneous Coronary Intervention 09/13/2024 10:40 AM CDT Office Visit [facility] - Endocrinology [address] [place] [address], [place] [address] Niraj Turner MD [address] [place] [address] Div [place] [address] 09/20/2024 2:20 PM CDT Office Visit [facility] [address], [facility] [address] [place] [address] Hannah Goodman MD [address] [facility] [address] [place] [address] 10/13/2024 1:00 PM CDT [facility] [address] [place] [address] [place] [address] Maylin Cutler DO [address] [facility] [address] [place] [address] documented as of this encounter Procedures Procedure Name Priority Date/Time Associated Diagnosis Comments HOLD HLA SPECIMEN Routine 01/27/2024 3:2 3 PM CIRCULATION LIBRARIAN documented in this encounter Results * HOLD HLA SPECIMEN (01/27/2024 3:23 PM CIRCULATION LIBRARIAN) Hold HLA Specimen 02/04/2024 4:31 PM CIRCULATION LIBRARIAN [facility] Comment:The Hold HLA specime n has been received into the lab and will be held for 5 years at 4 degrees. Blood BLOOD SPECIMEN / Unknown 01/27/2024 3:23 PM CIRCULATION LIBRARIAN 02/04/2024 3:23 PM CIRCULATION LIBRARIAN us Alan Davenport MD LAB - BLOOD BANK ORDERABLES F inal Result [facility] ([facility]) [address] [place] [address], [facility] documented in this encounter Visit Diagnoses Not on filedocumented in this encounter Care Teams Administrative Volunteer Relationship Specialty Start Date End Date Jeff Strickland MD [address] [place] [address] PCP - General 03/05/18 [place] [address] [place] [address] Orthopedic Surgery 03/28/17 documented as of this encounter
--- OUTSIDE RECORDS SUMMARY | 2024-08-30 20:37 | XMS_ITS | Encounter Summary ---
Author Organization [facility] Address [facility]3 [place] [address] Care Team Providers Care Statistical Assistant Name Role Phone Deandre Bojorquez MD Unavailable [phone] Jeff Strickland MD Primary Care Provider [phone] Encounter Details Date Type Department Care Team (Late st Contact Info) Description 09/30/2023 Lab Requisition [facility] MAIN LAB [address] [place] [phone] Alan Davenport MD [facility] OF [place]BD [place] [address] Social History Tobacco Use Types Packs/Day Years Used Date Smoking Tobacco: Never Smokeless Tobacco: Never Alcohol Use Standard Drinks/Week Comments Not Currently 0 (1 standard drink = 0.6 oz pur e alcohol) socially in past Sex and Gender Information Value Date Recorded Sex Assigned at Male 07/02/2021 2:37 PM CDT Legal Sex Male 10:14 PM 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 Gender Identity Male 07/02/2021 2:37 PM [...] CDT Hospital Encounter [facility] [address] [place] [address] Vanessa Medina MD [facility] [address] [address] Cardiac Catheterization 09/01/2024 10:50 AM CDT - 09/01/2024 12:36 PM CDT Surgery [facility] - Cardiac 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 [address] [place] [address] Vanessa Medina MD [address] [place] [address] Staged Percutaneous Coronary Intervention 09/13/2024 10:40 AM CDT Office Visit [facility] - Endocrinology [address] [place] [address], [place] [address] Niraj Turner MD [address] [place] [address] [place] [address] 09/20/2024 2:20 PM CDT Office Visit [facility] - Cardiology [address] [facility], [facility] [address] [place] [address] Hannah Goodmna MD [address] [facility] [address] [place] [address] 10/13/2024 1:00 PM CDT [facility] [address] [place] [address] [place] [address] Maylin Cutler DO [address] [facility] [address] [place] [address] documented as of this encounter Procedures Procedure Name Priority Date/Time Associated Diagnosis Comments HOLD HLA SPECIMEN Routine 09/24/2023 3:2 7 PM CDT documented in this encounter Results * HOLD HLA SPECIMEN (09/24/2023 3:27 PM CDT) Hold HLA Specimen 09/30/2023 4:32 PM CDT [facility] ([facility]) Comment:The Hold HLA specime n has been received into the lab and will be held for 5 years at 4 degrees. Blood BLOOD SPECIMEN / Unknown 09/24/2023 3:27 PM CDT 09/30/2023 3:27 PM CDT us Alan Davenport MD LAB - BLOOD BANK ORDERABLES F inal Result [facility] ([facility]) [address] [place], [place] [address] [place] [address] documented in this encounter Visit Diagnoses Not on filedocumented in this encounter Care Teams Statistical Assistant Relationship Specialty Start Date End Date Jeff Strickland MD [address] [place] [address] PCP - General 03/05/18 [place] [address] [place] [id number] Orthopedic Surgery 03/28/17 documented as of this encounter
--- OUTSIDE RECORDS SUMMARY | 2024-08-30 20:37 | XMS_ITS | Clinical Summary ---
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 present IRON BLOOD Routine 06/16/2024 4:15 PM CDT Pre-kidney transplant, listed ESRD (end stage renal disease) (HCC) 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, without long-term current use of insulin (HCC) Hypertension, unspecified type Oncocytoma Kidney stones SHABNAM on CPAP Coronary artery disease involving [place] coronary artery of [place] heart, unspecified whether angina present FERRITIN Routine 06/16/2024 4:15 PM CDT Pre-kidney transplant, listed ESRD (end stage renal disease) (HCC) 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, without long-term current use of insulin (HCC) Hypertension, unspecified type Oncocytoma Kidney stones SHABNAM on CPAP Coronary artery disease involving [place] coronary artery of [place] heart, unspecified whether angina present TRANSFERRIN Routine 06/16/2024 4:15 PM CDT Pre-kidney transplant, listed ESRD (end stage renal disease) (HCC) 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, without long-term current use of insulin (HCC) Hypertension, unspecified type Oncocytoma Kidney stones SHABNAM on CPAP Coronary artery disease involving [place] coronary artery of [place] heart, unspecified whether angina present VITAMIN D 25-HYDROXY Routine 06/16/2024 4:15 PM CDT Pre-kidney transplant, listed ESRD (end stage renal disease) (HCC) 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, without long-term current use of insulin (HCC) Hypertension, unspecified type Oncocytoma Kidney stones SHAB[place] on CPAP Coronary artery disease involving [place] coronary artery of [place] heart, unspecified whether angina present URIC ACID BLOOD Routine 06/16/2024 4:15 PM CDT Pre-kidney transplant, listed ESRD (end stage renal disease) (HCC) 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, without long-term current use of insulin (HCC) Hypertension, unspecified type Oncocytoma Kidney stones SHAB[place] on CPAP Coronary artery disease involving [place] coronary artery of [place] heart, unspecified whether angina present CBC W AUTO DIFFERENTIAL Routine 06/17/19 4:15 PM CDT Pre-kidney transplant, listed ESRD (end stage renal disease) (HCC) 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, without long-term current use of insulin (HCC) Hypertension, unspecified type Oncocytoma Kidney stones SHAB[place] on CPAP Coronary artery disease involving [place] coronary artery of [place] heart, unspecified whether angina present HEMOGLOBIN A1C Routine 06/16/2024 4:15 PM CDT Atherosclerosis of [place] coronary artery of [place] heart without angina pectoris Hypertriglyceridemi a Type 2 diabetes mellitus with other specified complication, 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 ([facility]) LIPID PROFILE Routine 06/16/2024 4:15 PM CDT Atherosclerosis of [place] coronary artery of [place] heart without angina pectoris Hypertriglyceridemi a Type 2 diabetes mellitus with other specified complication, 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 ([facility]) COMPREHENSIVE METABOLIC PANEL Routine 06/16/2024 4:15 PM CDT Atherosclerosis of [place] coronary artery of [place] heart without angina pectoris Hypertriglyceridemi a Type 2 diabetes mellitus with other specified complication, unspecified whether fci insulin use ([facility]) US THYROID Routine 06/16/2024 2:32 PM CDT Pre-kidney transplant, listed ESRD (end stage renal disease) (HCC) 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, without long-term current use of insulin (HCC) Hypertension, unspecified type Oncocytoma Kidney stones SHABNAM on CPAP Coronary artery disease involving [place] coronary artery of [place] heart, unspecified whether angina present ECHO COMPLETE W CONTRAST Routine 06/16/2024 1:55 PM CDT Pre-kidney transplant, listed ESRD (end stage renal disease) (HCC) 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, without long-term current use of insulin (HCC) Hypertension, unspecified type Oncocytoma Kidney stones SHABNAM on CPAP Coronary artery disease involving [place] coronary artery of [place] heart, unspecified whether angina present XR CHEST 2VW Routine 06/16/2024 12:49 PM CDT Pre-kidney transplant, listed ESRD (end stage renal disease) (HCC) 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, without long-term current use of insulin (HCC) Hypertension, unspecified type Oncocytoma Kidney stones SHABNAM on CPAP Coronary artery disease involving [place] coronary artery of [place] heart, unspecified whether angina present CT ABDOMEN PELVIS WO CONTRAST Routine 06/16/2024 12:47 PM CDT Pre-kidney transplant, listed ESRD (end stage renal disease) ([facility]) 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, without long-term current use of insulin ([facility]) Hypertension, unspecified type Oncocytoma Kidney stones SHABNAM on CPAP Coronary artery disease involving [place] coronary artery of [place] heart, unspecified whether angina present NM MYOCARD PERF REST STRESS Routine 06/16/2024 12:44 PM CDT Pre-kidney transplant, listed ESRD (end stage renal disease) ([facility]) 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, without long-term current use of insulin ([facility]) Hypertension, unspecified type Oncocytoma Kidney stones SHABNAM on CPAP Coronary artery disease involving [place] coronary artery of [place] heart, unspecified whether angina present STRESS TEST Routine 06/16/2024 11:55 AM CDT Pre-kidney transplant, listed ESRD (end stage renal disease) ([facility]) 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, without long-term current use of insulin ([facility]) Hypertension, unspecified type Oncocytoma Kidney stones SHABNAM on CPAP Coronary artery disease involving [place] coronary artery of [place] heart, unspecified whether angina present from Last 3 Months Results * (ABNORMAL) GLUCOSE - POINT OF CARE (08/19/2024 12:30 PM CDT) Only the most recent of5 resultswithin the time period is included. Glucose WB/POC 163(H) 70 - 99 mg/dL 08/19/2024 12:31 PM CDT [facility] Specimen Type Arterial/C apillary 08/19/2024 12:31 PM CDT [facility] Blood BLOOD SPECIMEN / Unknown 08/19/2024 12:30 PM CDT 08/19/2024 12:31 PM CDT Hannah Goodman MD LAB - POINT OF CARE ORDERABL ES Final Result Performing Organization Address City/[facility]/ZIP Co de Phone Number [address] [address], [place] [phone] * (ABNORMAL) IRON + TRANSFERRIN PANEL (08/19/2024 1:41 AM CDT) Iron 40(L) 50 - 175 ug/dL 08/19/2024 2:17 AM CDT [facility] Transferrin 116(L) 174 - 382 mg/dL 08/19/2024 2:17 AM CDT [facility] Transferrin Saturation % 28 16 - 50 % 08/19/2024 2:17 AM CDT [facility] TIBC Calculated 145(L) 240 - 450 ug/dL 08/19/2024 2:17 AM CDT [facility] Blood BLOOD SPECIMEN / Unknown Lab Venipuncture / Unknown 08/19/2024 1:41 AM CDT 08/19/2024 2:01 AM CDT Hannah Goodman MD LAB - CHEMISTRY ORDERABLES F inal Result Performing Organization Address [facility]/ZIP Co de Phone Number [address] [address], [place] [phone] * (ABNORMAL) FERRITIN (08/19/2024 1:41 AM CDT) Only the most recent of2 resultswithin the time period is included. Ferritin 560(H) 22 - 275 ng/mL 08/19/2024 2:35 AM CDT [facility] Blood BLOOD SPECIMEN / Unknown Lab Venipuncture / Unknown 08/19/2024 1:41 AM CDT 08/19/2024 2:01 AM CDT us Hannah Goodman MD LAB - CHEMISTRY ORDERABLES F inal Result Performing Organization Address City/[facility]/ZIP Co de Phone Number [address] [address], [place] [phone] * VITAMIN D 25-HYDROXY (08/19/2024 1:23 AM CDT) Only the most recent of2 resultswithin the time period is included. Pathologist [facility] [place] Vitamin D, 25 Hydroxy 36.2 30.0 - 80.0 ng/mL 08/19/2024 2:24 AM [facility] Comment: The recommendations for 25-Hydroxy Vitamin [...] LAB - CHEMISTRY ORDERABLES F inal Result [address] [address], [facility] [phone] * (ABNORMAL) CBC W/O DIFFERENTIAL (08/19/2024 1:23 AM CDT) Only the most recent of3 resultswithin the time period is included. Pathologist [facility] WBC 11.6(H) 4.0 - 10.7 x10E9/L 08/19/2024 1:31 AM [facility] RBC Count 3.16(L) 4.30 - 5.80 x10E12/L 08/19/2024 1:31 AM [facility] Hemoglobin 9.2(L) 13.3 - 17.5 g/dL 08/19/2024 1:31 AM [facility] Hematocrit 28.0(L) 38.7 - 51.1 % 08/19/2024 1:31 AM [facility] MCV 88.6 80.0 - 98.0 fL 08/19/2024 1:31 AM [facility] MCH 29.1 26.7 - 33.6 pg 08/19/2024 1:31 AM [facility] MCHC 32.9 31.7 - 36.3 g/dL 08/19/2024 1:31 AM [facility] RDW-CV 15.7(H) 11.3 - 14.8 % 08/19/2024 1:31 AM [facility] Platelet Count 145(L) 150 - 420 x10E9/L 08/19/2024 1:31 AM [facility] MPV 10.9 7.8 - 11.4 fL 08/19/2024 1:31 AM [facility] Blood BLOOD SPECIMEN / Unknown Lab Venipuncture / Unknown 08/19/2024 1:23 AM CDT 08/19/2024 1:25 AM T Letha Christine GLASSWARE FINISHER[employer]DIE MAINTENANCE LAB - HEMATOLOGY ORDER MICHELLE Final Result [facility] [address] [place] [address], [facility] [phone] * (ABNORMAL) COMPREHENSIVE METABOLIC PANEL (08/19/2024 1:23 AM T) Only the most recent of2 resultswithin the time period is included. BUN 39(H) 7 - 26 mg/dL 08/19/2024 2:07 AM [facility] Creatinine 9.53(H) 0.71 - 1.16 mg/dL 08/19/2024 2:07 AM [facility] Sodium 137 136 - 145 mmol/L 08/19/2024 2:07 AM [facility] Potassium 3.6 3.5 - 4.5 mmol/L 08/19/2024 2:07 AM [facility] Chloride 97(L) 98 - 107 mmol/L 08/19/2024 2:07 AM [facility] CO2 23 22 - 29 mmol/L 08/19/2024 2:07 AM [facility] Glucose 85 70 - 99 mg/dL 08/19/2024 2:07 AM [facility] Calcium 7.9(L) 8.4 - 10.2 mg/dL 08/19/2024 2:07 AM [facility] Protein Total 5.3(L) 6.0 - 8.3 g/dL 08/19/2024 2:07 AM [facility] Albumin 2.1(L) 3.4 - 5.0 g/dL 08/19/2024 2:07 AM [facility] Bilirubin Total 0.3 0.2 - 1.2 mg/dL 08/19/2024 2:07 AM [facility] Alkaline Phosphatase 81 40 - 150 U/L 08/19/2024 2:07 AM [facility] ALT 25 5 - 55 U/L 08/19/2024 2:07 AM [facility] AST 42(H) 5 - 34 U/L 08/19/2024 2:07 AM [facility] Anion Gap 17(H) 6 - 16 08/19/2024 2:07 AM [facility] BUN/Creatinine Ratio 4(L) 7 - 23 08/19/2024 2:07 AM [facility] Osmolality Calculated 293 275 - 295 mOsm/kg 08/19/2024 2:07 AM [facility] Albumin/Globulin Ratio 0.7(L) 1.1 - 2.3 08/19/2024 2:07 AM [facility] eGFR by CKD-EPI 5(L) >=90 mL/min/1.7 3 m2 08/19/2024 2:07 AM [facility] Comment:Estimated Glomerular Filtration Rate (eGFR) calculated using the CKD-EPI Creatinine Equation (2020), per the National Kidney Foundation and [place] Society [employer] Nephrology recommendations. Blood BLOOD SPECIMEN / Unknown Lab Venipuncture / Unknown 08/19/2024 1:23 AM CDT 08/19/2024 1:25 AM [facility] us Hannah Goodman MD LAB - CHEMISTRY ORDERABLES F inal Result [facility] [address] [place] [address], [facility] [phone] * (ABNORMAL) PTH INTACT W/O CALCIUM (08/19/2024 1:17 AM CDT) Only the most recent of2 resultswithin the time period is included. PTH Intact 443.9(H) 8.0 - 77.0 pg/mL 08/19/2024 1:57 AM CDT [facility] Blood BLOOD SPECIMEN / Unknown Lab Venipuncture / Unknown 08/19/2024 1:17 AM CDT 08/19/2024 1:17 AM CDT us Hannah Goodman MD LAB - CHEMISTRY ORDERABLES F inal Result [facility] [id number] [place] [address], [facility] [phone] * CCL PERIPHERAL ANGIOGRAM (08/18/2024 2:33 PM CDT) Anatomical Region Laterality Modality X-Ray Angiograph y Narrative 08/19/2024 2:24 PM CDT Left leg angiogram showed left AT severe diffuse disease with multiple subtotal occlusion and left PT severe diffuse disease with DISTRICT WIRE CHIEF of distal PT without clear reconstitution. Successful [...] 0.018 CXI microcatheter with multiple wires(Command 18/command 14/Director Oracle 200) to get to great toe branch of dorsalis pedis using fuel pilot engineer [address]. - the AT-DP lesion was dilated with balloons mentioned in figure. - We turn our attention to PT. We crossed the PT DISTRICT WIRE CHIEF with 0.018 CXI microcatheter with multiple wires (command 18, command 14, Director Oracle 200) and able to go to lateral [...] using angiography. Left Posterior Tibial: Ost L POLICE COMMANDING OFFICER to Dist L POLICE COMMANDING OFFICER lesion is 100% stenosed. Stenosis was measured using angiography. Intervention Ost L ROSETTA to Dist L ROSETTA lesion: Angioplasty: Angioplasty independent of stent deployment was performed using a standard balloon. The balloon used was Cath [employer] Pharman Emrg Mr Wh 1.5Mm 144Cm 15Mm 2. [...] 10% residual stenosis post intervention. Ost L POLICE COMMANDING OFFICER to Dist L POLICE COMMANDING OFFICER lesion: Angioplasty: Angioplasty independent of stent deployment [...] of Plavix. -recommend close follow up with diesel maintenance technician and follow up with me in clinic with TWYLA/TBI. Hannah Goodman MD CV INVASIVE VASCULAR AND IR CUPID PROC Final Result * ACT LR - POCT ([facility]) (08/18/2024 2:08 PM CDT) Only the most recent of5 resultswithin the time period is included. [facility] ACT LR 231 See result comments sec 08/19/2024 9:02 AM CDT [facility] Blood BLOOD SPECIMEN / Unknown 08/18/2024 2:08 PM CDT 08/19/2024 9:02 AM CDT Narrative [facility] - 08/19/2024 9:02 AM CDT [employer] ranges are: Cardiac crown and bridge dental lab technician = 200-300 seconds Sheath pull = ACT [...] MD LAB - COAGULATION ORDERABLES Final Result [facility] [address] [place] [address], [facility] [phone] * (ABNORMAL) BASIC METABOLIC PANEL (CALCIUM TOTAL) (08/18/2024 10:11 AM [facility]) Only the most recent of2 resultswithin the time period is included. BUN 34(H) 7 - 26 mg/dL 08/18/2024 11:03 AM [facility] Creatinine 8.79(H) 0.71 - 1.16 mg/dL 08/18/2024 11:03 AM [facility] Sodium 137 136 - 145 mmol/L 08/18/2024 11:03 AM [facility] Potassium 3.3(L) 3.5 - 4.5 mmol/L 08/18/2024 11:03 AM [facility] Chloride 98 98 - 107 mmol/L 08/18/2024 11:03 AM [facility] CO2 28 22 - 29 mmol/L 08/18/2024 11:03 AM [facility] Glucose 111(H) 70 - 99 mg/dL 08/18/2024 11:03 AM [facility] Calcium 8.2(L) 8.4 - 10.2 mg/dL 08/18/2024 11:03 AM [facility] Anion Gap 11 6 - 16 08/18/2024 11:03 AM [facility] BUN/Creatinine Ratio 4(L) 7 - 23 08/18/2024 11:03 AM [facility] Osmolality Calculated 292 275 - 295 mOsm/kg 08/18/2024 11:03 AM [facility] eGFR by CKD-EPI 6(L) >=90 mL/min/1.7 3 m2 08/18/2024 11:03 AM CDT [facility] Comment:Estimated Glomerular Filtration Rate (eGFR) calculated using the CKD-EPI Creatinine Equation (2020), per the National Kidney Foundation and [place] [employer] Nephrology recommendations. Blood BLOOD SPECIMEN / Unknown Venipuncture / Unknown 08/18/2024 10:11 AM CDT 08/18/2024 10:24 AM CDT us Letha Christine GLASSWARE FINISHER-DIE MAINTENANCE LAB - CHEMISTRY ORDERA BLES Final Result [facility] [address] [place] [address], [facility] [phone] * MRI ABDOMEN WWO CONTRAST (08/04/2024 12:24 [...] Report dictated by Alan Cole MD (residential support specialist). ITerry MD have personally reviewed and interpreted [...] of the left kidney, not significantly changed, [id number] image 49, series 16 image 41. A [...] Report dictated by Alan Cole MD (residential support specialist). I, Terry Ramos MD have personally reviewed [...] [facility] MUSE QRS Duration ms 112 ms [facility] MUSE Q-T Interval ms 550 ms [facility] MUSE QTC Calculation (Bezet) 511 ms SL MUSE Calculated P [place] 73 degrees [facility] MUSE Calculated R [place] -55 degrees SL MUSE Calculated T [place] -56 degrees SL MUSE Interpretation EKG SINUS BRADYCARDIA LEFT ANTERIOR FASCICULAR BLOCK NONSPECIFIC T WAVE ABNORMALITY PROLONGED QT ABNORMAL ECG NO PREVIOUS ECGS AVAILABLE Confirmed by МАРИНА CARRERA MD ([id number]) on 07/21/2024 3:29:58 PM [facility] MUSE 07/21/2024 10:4 0 AM CDT 07/21/2024 3:29 PM CDT us Jaqueline Crews GLASSWARE FINISHER-DIE MAINTENANCE ECG ORDERABLES Edited R esult - Final Performing Organization Address City/[facility]/ZIP Co de Phone Number [facility] MUSE * CARDIAC EKG ORDER (06/22/2024 12:07 PM CDT) Narrative 06/22/2024 12:07 PM CDT Ordered by an unspecified provider. us Scanned Document CARDIAC SERVICES ORDERABLES Fin al Result * HOLD HLA SPECIMEN (06/22/2024 11:05 AM CDT) [facility] Hold HLA Specimen 06/25/2024 12:32 PM CDT [facility] ([facility]) Comment:The Hold HLA specime n has been received into the lab and will be held for 5 years at 4 degrees. Blood BLOOD SPECIMEN / Unknown 06/22/2024 11:05 AM CDT 06/25/2024 11:05 AM CDT us Alan Davenport MD LAB - BLOOD BANK ORDERABLES F inal Result [facility] ([facility]) [address] * HEPATITIS B SURFACE ANTIBODY QUANT (06/16/2024 4:17 PM CDT) Pathologist [facility] Hepatitis B Virus Surface Antibody Non-react sylvie Non-react sylvie 06/16/2024 6:02 PM CDT [facility] Comment: < 8 mIU/mL Hepatitis B surface Antibody (HBsAb). Nonreactive for HBsAb - individual is considered not immune to Hepatitis B Virus infection. Hepatitis B Surface Antibody Quantitative <3.0 <8.0 mIU/mL 06/16/2024 6:02 PM CDT [facility] Comment: Hepatitis B Surface Antibody Numeric Result Interpretation: Nonreactive: <8.0 mIU/mL Indeterminate: 8.0 - 12.0 mIU/mL Reactive: >12.0 mIU/mL Blood BLOOD SPECIMEN / Unknown Lab Venipuncture / Unknown 06/16/2024 4:17 PM CDT 06/16/2024 5:14 PM CDT Narrative [facility] - 06/16/2024 6:02 PM CDT This assay should not be used for blood, plasma, or tissue donor screening. This assay is not recommended for neonates born to HBV-infected or suspected HBV-infected mothers. Alan Davenport MD LAB - SEROLOGY ORDERABLES Fin al Result [facility] [address] [place] [address], [facility] [phone] * COCAINE METABOLITE QUANT (06/16/2024 4:15 PM CDT) [facility] Cocaine and Metabolite Blood <20 ng/mL 06/21/2024 9:00 AM CDT [facility] ([facility]) Comment: INTERPRETIVE INFORMATION: Cocaine Metabolite, Serum [...] developed and its performance characteristics determined by [facility]. It has not been cleared or approved by the [place] Food and Drug Administration. This test was performed in a CLIA certified laboratory and is intended for clinical purposes. Performed By: [facility] [address] [place] [id number] Tire Technician: Mk Egan MD, PhD CLIA Number: [id number] Blood BLOOD SPECIMEN / Unknown Lab Venipuncture / Unknown 06/16/2024 4:15 PM CDT 06/16/2024 5:17 PM CDT us Alan Davenport MD LAB - CHEMISTRY ORDERABLES Fi nal Result Performing Organization Address City/[facility]/ZIP Co de Phone Number [facility] [employer] [facility]) [address] [place], [place] [address] * SYPHILIS ANTIBODY CASCADING REFLEX (06/16/2024 4:15 PM CDT) Treponema pallidum Antibody Non-react sylvie Non-react sylvie 06/16/2024 5:49 PM CDT [facility] Comment: No Laboratory evidence [...] ORDERABLES Fin al Result Performing Organization Address [facility] de Phone Number [address] [address], [facility] [phone] * AMPHETAMINE BLOOD CONFIRMATION (06/16/2024 4:15 PM CDT) Amphetamines Confirmation <20 ng/mL 06/23/2024 4:46 PM CDT [facility] ([facility]) Comment: INTERPRETIVE INFORMATION: Amphetamines, Serum or [...] developed and its performance characteristics determined by [employer]. It has not been cleared or approved by the US Food and Drug Administration. This test was performed in a CLIA certified laboratory and is intended for clinical purposes. Methamphetamine Confirmation <20 ng/mL 06/23/2024 4:46 PM CDT [facility] ([facility]) MDA Confirmation <20 ng/mL 06/24/19 25 4:46 PM CDT [facility] ([facility]) MDMA Confirm <20 ng/mL 06/23/2024 4:46 PM CDT [facility] ([facility]) MDEA Confirmation <20 ng/mL 025 4:46 PM CDT [facility]) Comment: Performed By: [facility] [employer] by [employer] [address] [place] [address] Tire Technician: Mk Egan MD, PhD [place] Number: [id number] Blood BLOOD SPECIMEN / Unknown Lab Venipuncture / Unknown 06/16/2024 4:15 PM CDT 06/16/2024 5:16 PM CDT Alan Davenport MD LAB - CHEMISTRY ORDERABLES Fi nal Result [facility]) [address] [place] [address] * QUANTIFERON-TB GOLD PLUS 4-TUBE (06/16/2024 4:15 PM CDT) Pathologist [facility] QuantiFERON Mitogen Minus NIL 9.96 IU/mL 06/18/2024 10:28 PM CDT [facility]) QuantiFERON Nil Value 0.04 IU/mL 06/18/2024 10:28 PM CDT [facility] ([facility]) QuantiFERON Plus TB1 Minus NIL 0.00 <=0.34 IU/mL 06/18/2024 10:28 PM CDT [facility]) QuantiFERON Plus TB2 Minus NIL 0.10 <=0.34 IU/mL 06/18/2024 10:28 PM CDT [facility] ([facility]) QuantiFERON-TB Gold Plus Negative Negative 06/18/2024 10:28 PM CDT [facility] ([facility]) Comment: INTERPRETIVE INFORMATION:Quantiferon TB Gold Plus Interferon [...] Mycobacterium tuberculosis Infection -- [place], 2010 (http://www.cdc.gov/mmwr/preview/mmwrhtml/xr5577x6.htm), for more information concerning test performance in low-prevalence populations and use in occupational screening. Performed By: [employer] [address] [place] [address] Tire Technician: Mk Egan MD, PhD [place] Number: [id number] Blood BLOOD SPECIMEN / Unknown Lab Venipuncture / Unknown 06/16/2024 4:15 PM CDT 06/16/2024 4:49 PM CDT Alan Davenport MD LAB - CHEMISTRY ORDERABLES Fi nal Result [employer]) [address] * (ABNORMAL) OXALATE BLOOD (06/16/2024 4:15 PM CDT) Oxalate 2.1(H) <=2.0 umol/L 06/21/2024 6:22 PM CDT [employer] ([facility]) Comment: INTERPRETIVE INFORMATION: Oxalate, Plasma This test was developed and its performance characteristics determined by [employer]. It has not been cleared or approved by the US Food and Drug Administration. This test was performed in a CLIA certified laboratory and is intended for clinical purposes. Performed By: [employer] [address] [place] [address] Tire Technician: Mk Egan MD, PhD CLIA Number: [id number] Blood BLOOD SPECIMEN / Unknown Lab Venipuncture / Unknown 06/16/2024 4:15 PM CDT 06/16/2024 5:02 PM CDT Alan Davenport MD LAB - CHEMISTRY ORDERABLES Fi nal Result Performing Organization Address [facility]/ZIP Co de Phone Number [facility] [employer] ([facility]) [address] [place], [place] [address] * HIV-1 HIV-2 ANTIBODY + HIV P24 AG PANEL (06/16/2024 4:15 PM CDT) [facility] HIV Antigen/Antibod y 1 & 2 Non-reacti ve Non-react sylvie 06/16/2024 5:50 PM CDT [facility] Comment:No Laboratory eviden ce of HIV infection. Blood BLOOD SPECIMEN / Unknown Lab Venipuncture / Unknown 06/16/2024 4:15 PM CDT 06/16/2024 5:15 PM CDT Alan Davenport MD LAB - CHEMISTRY ORDERABLES Fi nal Result Performing Organization Address [facility] Co de Phone Number [address] [address], [facility] [phone] * OPIATES BLOOD (06/16/2024 4:15 PM CDT) [facility] Opiates Screen Negative 06/24/2024 3:10 PM CDT [facility] ([facility]) Comment:REFERENCE RANGE: thr shold: 10 ng/mL Oxycodone Screen Negative 06/25/19 3:10 PM CDT [facility] ([facility]) Comment:REFERENCE RANGE: thr shold: 10 ng/mL Specimen Type Comment 06/24/2024 3:10 PM CDT [facility] ([facility]) Comment: WHOLE BLOOD This specimen was screened by immunoassay at the thresholds listed above. Presumptive positive results have not been confirmed by an alternate method; results are intended for clinical medical purposes. Please contact the laboratory if confirmatory testing is desired. This test was developed and its performance characteristics determined by [employer]. It has not been cleared or approved by the Food and Drug Administration. Blood BLOOD SPECIMEN / Unknown Lab Venipuncture / Unknown 06/16/2024 4:15 PM CDT 06/16/2024 4:49 PM CDT Narrative [facility] ([facility]) - 06/24/2024 3:10 PM CDT Performed at: - [employer] [address] [place] [address] [phone] See Wheeler: Ev Camarena [facility], Phone: [phone] us Alan Davenport MD LAB - CHEMISTRY ORDERABLES Fi nal Result Performing Organization Address [facility]/ZIP Co de Phone Number [facility] [address] [place] [address] * URIC ACID BLOOD (06/16/2024 4:15 PM CDT) Uric Acid 5.7 3.5 - 7.2 mg/dL 06/16/2024 5:31 PM CDT [facility] Blood BLOOD SPECIMEN / Unknown Lab Venipuncture / Unknown 06/16/2024 4:15 PM CDT 06/16/2024 5:02 PM CDT us Alan Davenport MD LAB - CHEMISTRY ORDERABLES Fi nal Result Performing Organization Address City/[facility]/ZIP Co de Phone Number [address] [address], [facility] [phone] * STRONGYLOIDES ANTIBODY IGG (06/16/2024 4:15 PM CDT) Strongyloides Antibody IgG 0.1 <=0.9 IV 06/20/2024 11:18 PM CDT [facility] ([facility]) Comment: INTERPRETIVE INFORMATION: Strongyloides Ab, IgG [...] also result in false-positive results. Performed By: [facility] [employer] [address] [place] [address] Tire Technician: Mk Egan MD, PhD CLIA Number: [id number] Blood BLOOD SPECIMEN / Unknown Lab Venipuncture / Unknown 06/16/2024 4:15 PM CDT 06/16/2024 5:17 PM CDT us Alan Davenport MD LAB - SEROLOGY ORDERABLES Fin al Result [facility] [employer] [facility]) [address] [place] [address] * CYTOMEGALOVIRUS ANTIBODY IGG BLOOD (06/16/2024 4:15 PM CDT) Pathologist [facility] [place] Cytomegalovirus Antibody IgG <0.20 <=0.70 U/mL 06/19/2024 6:14 AM CDT [facility] [employer] ([facility]) Comment: INTERPRETIVE INFORMATION: Cytomegalovirus Antibody, IgG [...] laboratory at the same time. Performed By: [employer] [address] [place] [address] Tire Technician: Mk Egan MD, PhD CLIA Number: [id number] Blood BLOOD SPECIMEN / Unknown Lab Venipuncture / Unknown 06/16/2024 4:15 PM CDT 06/16/2024 5:17 PM CDT Alan Davenport MD LAB - CHEMISTRY ORDERABLES Fi nal Result Performing Organization Address [facility]/ZIP Co de Phone Number [facility]) [address] [place] [address] * TRANSFERRIN (06/16/2024 4:15 PM CDT) [facility] Transferrin 210 174 - 382 mg/dL 06/16/2024 5:30 PM CDT [facility] Blood BLOOD SPECIMEN / Unknown Lab Venipuncture / Unknown 06/16/2024 4:15 PM CDT 06/16/2024 5:15 PM CDT Alan Davenport MD LAB - CHEMISTRY ORDERABLES Fi nal Result Performing Organization Address City/[facility] Co de Phone Number [address] [address], [facility] [phone] * TOXOPLASMA GONDII ANTIBODY IGG (06/16/2024 4:15 PM CDT) [facility] Toxoplasma Antibody IgG <3.0 <=8.8 IU/mL 06/18/2024 1:52 AM CDT [facility]) Comment: INTERPRETIVE INFORMATION: Toxoplasma Ab, IgG [...] the amount of antibody present. Performed By: [employer] [address] [place] [address] Tire Technician: Mk Egan MD, PhD CLIA Number: [id number] Blood BLOOD SPECIMEN / Unknown Lab Venipuncture / Unknown 06/16/2024 4:15 PM CDT 06/16/2024 5:16 PM CDT us Alan Davenport MD LAB - CHEMISTRY ORDERABLES Fi nal Result Performing Organization Address City/State/[facility] Co de Phone Number [facility] ([facility]) [address] [place] [address] * (ABNORMAL) HEMOGLOBIN A1C (06/16/2024 4:15 PM CDT) Hemoglobin A1c 6.2(H) <=5.6 % 06/17/2024 8:05 AM CDT [facility] Estimated Average Glucose 131 mg/dL 06/17/2024 8:05 AM T [facility] Comment: HbA1c Interpretation: Normal : < 5.7% Pre-diabetes: 5.7-6.4% Diabetes: Equal to or greater than 6.5% Test results diagnostic of diabetes should be repeated for confirmation. Treatment target values recommended by ADA and other clinical organizations should be used to evaluate metabolic control in patients. Reference: [place] [employer], Standards of Care in Diabetes [...] LAB - CHEMISTRY ORDERABLES Fin al Result [facility] [place] [address], [facility] [phone] * NICOTINE + METABOLITES BLOOD (06/16/2024 4:15 PM CDT) Pathologist [facility] Nicotine <5 ng/mL 06/19/2024 11:28 PM CDT [facility] ([facility]) Comment: INTERPRETIVE INFORMATION: Nicotine and Metabolites, Serum [...] developed and its performance characteristics determined by [employer]. It has not been cleared or approved by the US Food and Drug Administration. This test was performed in a CLIA certified laboratory and is intended for clinical purposes. Performed By: [employer] [address] [place] [address] Tire Technician: Mk Egan MD, PhD CLIA Number: [id number] Cotinine <5 ng/mL 06/19/2024 11:28 PM CDT [facility] [employer] [facility]) Blood BLOOD SPECIMEN / Unknown Lab Venipuncture / Unknown 06/16/2024 4:15 PM CDT 06/16/2024 5:15 PM CDT Alan Davenport MD LAB - CHEMISTRY ORDERABLES Fi nal Result [facility] [employer] [facility]) [address] [place] [address] * (ABNORMAL) CBC W AUTO DIFFERENTIAL (06/16/2024 4:15 PM CDT) WBC 10.8(H) 4.0 - 10.7 x10E9/L 06/16/2024 5:09 PM [facility] RBC Count 3.08(L) 4.30 - 5.80 x10E12/L 06/16/2024 5:09 PM [facility] Hemoglobin 9.5(L) 13.3 - 17.5 g/dL 06/16/2024 5:09 PM [facility] Hematocrit 28.6(L) 38.7 - 51.1 % 06/16/2024 5:09 PM [facility] MCV 92.9 80.0 - 98.0 fL 06/16/2024 5:09 PM [facility] MCH 30.8 26.7 - 33.6 pg 06/16/2024 5:09 PM [facility] MCHC 33.2 31.7 - 36.3 g/dL 06/16/2024 5:09 PM [facility] RDW-CV 14.8 11.3 - 14.8 % 06/16/2024 5:09 PM [facility] Platelet Count 154 150 - 420 x10E9/L 06/16/2024 5:09 PM [facility] MPV 11.3 7.8 - 11.4 fL 06/16/2024 5:09 PM [facility] Neutrophil % 77.5(H) 41.0 - 74.0 % 06/16/2024 5:09 PM [facility] Lymphocyte % 10.0(L) 17.0 - 47.0 % 06/16/2024 5:09 PM [facility] Monocyte % 9.5 3.0 - 11.0 % 06/16/2024 5:09 PM [facility] Eosinophil % 0.9 0.0 - 7.0 % 06/16/2024 5:09 PM [facility] Basophil % 0.2 0.0 - 1.6 % 06/16/2024 5:09 PM [facility] Immature Granulocytes % 1.9(H) 0.0 - 1.0 % 06/16/2024 5:09 PM [facility] Neutrophil Absolute 8.33(H) 1.60 - 7.50 x10E9/L 06/16/2024 5:09 PM CDT [facility] Lymphocyte Absolute 1.08 1.00 - 4.40 x10E9/L 06/16/2024 5:09 PM CDT [facility] Monocyte Absolute 1.02(H) 0.15 - 1.00 x10E9/L 06/16/2024 5:09 PM T [facility] Eosinophil Absolute 0.10 0.00 - 0.60 x10E9/L 06/16/2024 5:09 PM CDT [facility] Basophil Absolute 0.02 0.00 - 0.13 x10E9/L 06/16/2024 5:09 PM [facility] Blood BLOOD SPECIMEN / Unknown Lab Venipuncture / Unknown 06/16/2024 4:15 PM CDT 06/16/2024 5:02 PM CDT Alan Davenport MD LAB - HEMATOLOGY ORDERABLES F inal Result [address] [address], [place] [phone] * PROSTATE SPECIFIC ANTIGEN SCREEN (06/16/2024 4:15 PM CDT) PSA Total 2.8 <4.0 ng/mL 06/16/2024 5:47 PM CDT [facility] Blood BLOOD SPECIMEN / Unknown Lab Venipuncture / Unknown 06/16/2024 4:15 PM CDT 06/16/2024 5:14 PM CDT Narrative [facility] - 06/16/2024 5:47 PM CDT PSA values will vary depending on the testing procedure used. Results are not comparable across different test methods. [facility] uses the Counsyl Alinity immunoassay test method. us Alan Davenport MD LAB - CHEMISTRY ORDERABLES Fi nal Result Performing Organization Address City/[facility]/ZIP Co de Phone Number [address] [address], [place] [phone] * (ABNORMAL) PHOSPHORUS BLOOD (06/16/2024 4:15 PM CDT) Phosphorus 7.6(H) 2.8 - 5.1 mg/dL 06/16/2024 5:31 PM CDT [facility] Blood BLOOD SPECIMEN / Unknown Lab Venipuncture / Unknown 06/16/2024 4:15 PM CDT 06/16/2024 5:02 PM CDT us Alan Davenport MD LAB - CHEMISTRY ORDERABLES Fi nal Result [address] [address], [place] [phone] * IRON BLOOD (06/16/2024 4:15 PM CDT) Pathologist [facility] Iron 73 50 - 175 ug/dL 06/16/2024 5:30 PM CDT [facility] Blood BLOOD SPECIMEN / Unknown Lab Venipuncture / Unknown 06/16/2024 4:15 PM CDT 06/16/2024 5:15 PM CDT us Alan Davenport MD LAB - CHEMISTRY ORDERABLES Fi nal Result Performing Organization Address City/[facility]/ZIP Co de Phone Number [address] [address], [place] [phone] * HEPATITIS B CORE ANTIBODY (06/16/2024 4:15 PM CDT) [facility] HBc Antibody Total Non-reacti ve Non-reacti ve 06/16/2024 5:50 PM CDT [facility] Blood BLOOD SPECIMEN / Unknown Lab Venipuncture / Unknown 06/16/2024 4:15 PM CDT 06/16/2024 5:15 PM CDT us Alan Davenport MD LAB - CHEMISTRY ORDERABLES Fi nal Result [address] [address], [facility] [phone] * HEPATITIS B SURFACE ANTIGEN W RFLX CONFIRMATION (06/16/2024 4:15 PM CDT) [facility] Hepatitis B Virus Surface Antigen Non-reacti ve Non-reacti ve 06/16/2024 5:50 PM CDT [facility] Blood BLOOD SPECIMEN / Unknown Lab Venipuncture / Unknown 06/16/2024 4:15 PM CDT 06/16/2024 5:15 PM CDT Alan Davenport MD LAB - CHEMISTRY ORDERABLES Fi nal Result Performing Organization Address [facility] Co de Phone Number [address] [address], [facility] [phone] * HEPATITIS C ANTIBODY (06/16/2024 4:15 PM CDT) [facility] Hepatitis C Antibody Non-react sylvie Non-reac tive 06/16/2024 5:50 PM CDT [facility] Comment:Hepatitis C Antibody screen indicates no [...] ORDERABLES Fi nal Result Performing Organization Address City/[facility]/ZIP Co de Phone Number [address] [address], [facility] [phone] * (ABNORMAL) HEPATITIS A ANTIBODY (06/16/2024 4:15 PM CDT) [facility] Hepatitis A Virus Antibody Total Positive( A) Negative 06/17/2024 7:14 PM CDT [facility] [employer] ([facility]) Comment: The positive anti-HAV is consistent with recent or remote Hepatitis A infection or antibody response to HAV vaccination. False positive anti-HAV can occur. Performed By: [employer] [address] [place] [address] Tire Technician: Mk Egan MD, PhD CLIA Number: [id number] Blood BLOOD SPECIMEN / Unknown Lab Venipuncture / Unknown 06/16/2024 4:15 PM CDT 06/16/2024 5:12 PM CDT Alan Davenport MD LAB - CHEMISTRY ORDERABLES Fi nal Result Performing Organization Address City/[facility]/ZIP Co de Phone Number [facility] ([facility]) [address] [place] [address], [facility] * (ABNORMAL) LIPID PROFILE (06/16/2024 4:15 PM CDT) Cholesterol Total 112 <200 mg/dL 06/16/2024 5:31 PM CDT [facility] HDL 32(L) >40 mg/dL 06/16/2024 5:31 PM T [facility] Comment: ATP III Classification of HDL Cholesterol: <40 mg/dL: Considered a major risk factor. >60 mg/dL: Considered a negative risk factor. LDL Calculated 53 <100 mg/dL 06/16/2024 5:31 PM T [facility] Comment: ATP III Classification of LDL Cholesterol: <100 mg/dL: Optimal 100 - 129 mg/dL: Near Optimal/Above Optimal 130 - 159 mg/dL: Borderline High 160 - 189 mg/dL: High >190 mg/dL: Very High Triglycerides 134 <150 mg/dL 06/16/2024 5:31 PM T [facility] Comment: ATP III Classification of Triglycerides: <150 mg/dL: Normal 150 - 199 mg/dL: Borderline High 200 - 400 mg/dL: High >500 mg/dL: Very High Blood BLOOD SPECIMEN / Unknown Lab Venipuncture / Unknown 06/16/2024 4:15 PM CDT 06/16/2024 5:02 PM CDT Maylin Cutler DO LAB - CHEMISTRY ORDERABLES Fin al Result [facility] [address] [place] [address], [facility] [phone] * US Thyroid (06/16/2024 2:32 PM CDT) [...] Report dictated by Otis Bocanegra MD, (residential support specialist). I, Raymundo Hanson MD have personally reviewed and interpreted this examination/study. > Interpreting Provider: Raymundo Hanson MD on 06/16/2024 2:38 PM Narrative 06/16/2024 2:38 PM CDT PROCEDURE: US THYROID, DATE/TIME OF EXAM: 06/16/2024 2:32 PM, LOCATION [facility] INDICATION: Z76.82: Pre-kidney transplant, listed [...] THYROID, DATE/TIME OF EXAM: 06/16/2024 2:32 PM, [facility] INDICATION: Z76.82: Pre-kidney transplant, listed [...] Report dictated by Otis Bocanegra MD, (residential support specialist). I, Raymundo Hanson MD have personally [...] LVOT pk grad 4.081 [facility] pk dontrell 101.008 cm/s [facility] CV F U PACS LVOT VTI 23.007 cm [facility] CV [facility] I PACS RV-joy basal diam 3.384 cm [facility] RVIDd 3.35 cm [facility] I PACS RVOT diam Doppler 3.341 cm SS M CV [facility] PACS RVOT pk dontrell 65.451 cm/s [facility] CV F U PACS RVOT VTI 14.358 cm [facility] CV [facility] I PACS LA size 5.077 cm [facility] CV [facility] I PACS LA vol BP 93.015 ml [facility] CV [facility] I PACS RA area 12.944 cm [facility] CV [facility] PACS AV area pk dontrell 2.817 cm [facility] CV [facility] PACS AV area cont VTI 2.62 cm [facility] CV [facility] PACS AV pk grad 5.56 mmHg SSM CV FU PACS AV mn grad 2.95 mmHg SSM CV FU PACS AV pk dontrell 117.896 cm/s [facility] CV [facility] I PACS AV VTI 28.874 cm [facility] CV [facility] I PACS MV A pk dontrell 101.425 cm/s [facility] CV F [facility] PACS MV E pk dontrell 116.678 cm/s SSM CV F U PACS MV E' lateral dontrell 6.619 cm/s SS M CV [facility] PACS PV pk dontrell 64.914 cm/s [facility] CV [facility] I PACS PV VTI 13.546 cm [facility] CV [facility] I PACS TAPSE 2.458 cm [facility] CV [facility] I PACS TR pk dontrell 304.537 cm/s [facility] CV [facility] I PACS Ascending aorta 3.397 cm [facility] Diam Expiration 1.657 cm [facility] AV area index 1.068 cm /m [facility] LA vol index 0.038 l/m SSM [...] 1:12 PM Patient Status: O/P Study [facility] Quality: Technically Difficult [...] Provider: Alan Davenport Attending Physician: Alan Davenport Vest Presser: Diane Merlos Left Ventricle Left ventricular systolic [...] 1:12 PM Patient Status: O/P Study Site: [facility] Primary [facility] Technical Quality: Technically Difficult Exam Type: [...] Provider: Alan Davenport Attending Physician: Alan Davenport Vest Presser: Diane Merlos Left Ventricle Left ventricular systolic [...] 08/02/2020. 2.Peritoneal dialysis catheter in the pelvis. Cedej-la-uzozdrfu volume ascites throughout the abdomen and pelvis, likely related to dialysis. 3.Moderate to severe atherosclerotic calcification of bilateral common iliac arteries as well as bilateral external iliac arteries 4.Prostatomegaly. 5.Bilateral subcentimeter lung nodules, unchanged since 03/04/2022. > Dictated by Ilene Borja MD (residential support specialist). I, Junior Hurley MD have personally reviewed and interpreted this examination/study. 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 2.Peritoneal dialysis catheter in the pelvis. Pnpfl-kd-pfvgqgwk volume ascites throughout the abdomen and pelvis, likely related to dialysis. 3.Moderate to severe atherosclerotic calcification of bilateral common iliac arteries as well as bilateral external iliac arteries 4.Prostatomegaly. 5.Bilateral subcentimeter lung nodules, unchanged since 03/04/2022. > Dictated by Ilene Borja MD (residential support specialist). IJunior MD have personally reviewed and [...] 54%. > Dictated by Neeraj Johnson MD (Foreign Policy Officer) 06/16/2024 10:25 AM Ariel Leigh MD have personally reviewed and interpreted this examination/study. > Interpreting Provider: Ariel Araya MD on 06/17/2024 8:36 AM Narrative 06/17/2024 8:36 AM CDT PROCEDURE: NM MYOCARD PERF REST STRESS DATE/TIME OF EXAM: 06/16/2024 12:44 PM CLINICAL INFORMATION: None relevant/not provided if blank. 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, without long-term current use of insulin ([facility]) N18.6: Type 2 diabetes mellitus with chronic kidney disease on chronic dialysis, without long-term current use of insulin ([facility]) Z99.2: Type 2 diabet Rest and Pharmacologic [...] listed N18.6: ESRD (end stage renal disease) ([facility]) Z99.2: Dependence on renal dialysis 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 > Dictated by Neeraj Johnson MD (Foreign Policy Officer) 06/16/2024 10:25AM I, Ariel Araya MD have personally reviewed and interpreted this examination/study. > Interpreting Provider: Ariel Araya MD on 06/17/2024 8:36 AM Alan Davenport MD OK ORDERABLES Final Result * STRESS TEST Pharm-Lexiscan (Regadenoson) (06/16/2024 11:55 AM CDT) [facility] Signature Predicted METS 7.2 METS [facility] [...] Date of Phone Billing Address Personal/Family [address] [place] [address] * Guarantor: GRACE INTERIANO Account Type Relation to Patient Date of Phone Billing Address Personal/Family [address] [place] [address] Advance Directives * Full Code (Latest Code [...] 11:48 AM 08/08/2020 9:40 AM Care Teams Flight Control Manager Relationship Specialty Start Date End Date Jeff Strickland MD [address] [place] [address] PCP - General 03/05/18 [place] [address] [address] Orthopedic Surgery 03/28/17
--- OUTSIDE RECORDS SUMMARY | 2024-08-30 20:37 | XMS_ITS ---
Author Organization [facility] Address [address] [place] [address] Care Team Providers Care Greensman Name Role Phone Deandre Bojorquez MD Unavailable [phone] Jeff Strickland MD Primary Care Provider [phone] Transplant Episode Kidney Candidate [facility] ([place], [place]) - [facility] Center waitlisted on 05/06/2022 Marked as Inactive on 12/19/2022 Reason: Temporarily too Sick Kidney CoordinatorSavanna Edwards RN Phone: N/A Fax: N/A Email: N/A Scores Score Value Updated Exceptions/Reas ons CPRA Not available EPTS (Calc) 96 08/30/2024 Jamul Organ Diagnosis Organ Primary Contributory Kidney Diabetes Mellitus - Type II Hype rtensive Nephrosclerosis Care Team Name Role Phone Fax Email Savanna Edwards RN Kidney Coordinator N/A N/A N/A Alan Mccall MD Referring Physician [phone] N/A Anjali Mott LMSW Sample Display Preparer N/A N/A N/A Millie Lindquist Oracle Data Warehouse Developer N/A N/A N/A Events Pre-Transplant Referred: 12/05/2021 Evaluation began: 12/13/2021 Committee: 05/02/2022 UNOS qualified: 01/17/2020 Center waitlisted: 05/06/2022 Dialysis History Dialysis History Start End Type Comments Center 01/17/2020 Peritoneal [facility] Information Center Phone Fax Address [facility] [phone] [address] [place] [address]
--- OUTSIDE RECORDS SUMMARY | 2024-08-30 20:37 | XMS_ITS | Encounter Summary ---
Author Organization [facility] Address [facility] [place] [address] Care Team Providers Care Outboard Motor Inspector Name Role Phone Deandre Bojorquez MD Unavailable [phone] Jeff Strickland MD Primary Care Provider [phone] Encounter Details Date Type Department Care Team (Late st Contact Info) Description 04/10/2023 Lab Requisition [facility] MAIN LAB [address] [place] [phone] Alan Davenport MD [facility] [place] [address] Social History Tobacco Use Types Packs/Day Years Used Date Smoking Tobacco: Never Smokeless Tobacco: Never Alcohol Use Standard Drinks/Week Comments Not Currently 0 (1 standard drink = 0.6 oz pur e alcohol) socially in past Sex and Gender Information Value Date Recorded Sex Assigned at Male 07/02/2021 2:37 PM CDT Legal Sex Male 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 - Cardiac Diabetes Manager [address] [place] [address] Vanessa Medina MD [address] [place] [address] Staged Percutaneous Coronary Intervention 09/13/2024 10:40 AM CDT Office Visit [facility] - Endocrinology [address] [place] [address], [place] [address] Niraj Turner MD [address] [place] [address] [place] [address] 09/20/2024 2:20 PM CDT Office Visit [facility] [address] [facility], [facility] [address] [place] [address] Hannah Goodman MD [address] [facility] [address] [place] [address] 10/13/2024 1:00 PM CDT Office Visit [facility] - Cardiology [address], [place] [address] [place] [address] Maylin Cutler DO [address] [facility] [address] [place] [address] documented as of this encounter Procedures Procedure Name Priority Date/Time Associated Diagnosis Comments HOLD HLA SPECIMEN Routine 04/02/2023 3:0 1 PM DRY CHAIN WORKER documented in this encounter Results * HOLD HLA SPECIMEN (04/02/2023 3:01 PM DRY CHAIN WORKER) Hold HLA Specimen 04/10/2023 4:01 PM DRY CHAIN WORKER [facility] ([facility] Comment:The Hold HLA specime n has been received into the lab and will be held for 5 years at 4 degrees. Blood BLOOD SPECIMEN / Unknown 04/02/2023 3:01 PM DRY CHAIN WORKER 04/10/2023 3:01 PM DRY CHAIN WORKER us Alan Davenport MD LAB - BLOOD BANK ORDERABLES F inal Result [facility] ([facility]) [address] [place] [address], [facility] documented in this encounter Visit Diagnoses Not on filedocumented in this encounter Care Teams Outboard Motor Inspector Relationship Specialty Start Date End Date Jeff Strickland MD [address] [place] [address] PCP - General 03/05/18 [place] [address] [place] [address] Orthopedic Surgery 03/28/17 documented as of this encounter
--- OUTSIDE RECORDS SUMMARY | 2024-08-30 20:37 | XMS_ITS | Encounter Summary ---
Author Organization [facility] Address [facility]3 [place] [address] Care Team Providers Care Diplomatic Interpreter Name Role Phone Deandre Bojorquez MD Unavailable [phone] Jeff Strickland MD Primary Care Provider [phone] Encounter Details Date Type Department Care Team (Late st Contact Info) Description 05/29/2023 Lab Requisition [facility] MAIN LAB [address] [place] [phone] Alan Davenport MD [facility] [place] [address] Social History Tobacco Use Types Packs/Day Years Used Date Smoking Tobacco: Never Smokeless Tobacco: Never Alcohol Use Standard Drinks/Week Comments Not Currently 0 (1 standard drink = 0.6 oz pur e alcohol) socially in past Sex and Gender Information Value Date Recorded Sex Assigned at Male 07/02/2021 2:37 PM CDT Legal Sex Male 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 APPRENTICE Gender Identity Male 07/02/2021 2:37 PM CDT [...] CDT Hospital Encounter [facility] [address] [place] [address] Vanessa Medina MD [facility] [address] Cardiac Catheterization 09/01/2024 10:50 AM CDT - 09/01/2024 12:36 PM CDT Surgery [facility] - Cardiac Electric Sign Wirer [address] [place] [address] Vanessa Medina MD [address] [place] [address] Staged Percutaneous Coronary Intervention 09/13/2024 10:40 AM CDT Office Visit [facility] - Endocrinology [address] [place] [address], [place] [address] Niraj Turner MD [address] [place] [address] [place] [address] 09/20/2024 2:20 PM CDT Office Visit [facility] - Cardiology [address] [facility], [facility] [address] [place] [address] Hannah Goodman MD [address] [facility] [address] [place] [address] 10/13/2024 1:00 PM CDT [facility] [address] [facility], [place] [address] [place] [address] Maylin Cutler DO [address] [facility] [address] [place] [address] documented as of this encounter Procedures Procedure Name Priority Date/Time Associated Diagnosis Comments HOLD HLA SPECIMEN Routine 05/21/2023 9:2 4 AM CDT documented in this encounter Results * HOLD HLA SPECIMEN (05/21/2023 9:24 AM CDT) Hold HLA Specimen 05/29/2023 10:30 AM CDT [facility] ([facility]) Comment:The Hold HLA specime n has been received into the lab and will be held for 5 years at 4 degrees. Blood BLOOD SPECIMEN / Unknown 05/21/2023 9:24 AM CDT 05/29/2023 9:24 AM CDT us Alan Davenport MD LAB - BLOOD BANK ORDERABLES F inal Result [facility] ([facility]) [address] [place], [place] [address] [place] [address] documented in this encounter Visit Diagnoses Not on filedocumented in this encounter Care Teams Diplomatic Interpreter Relationship Specialty Start Date End Date Jeff Strickland MD [address] [place] [address] PCP - General 03/05/18 [place] [address] [place] [phone] Orthopedic Surgery 03/28/17 documented as of this encounter
--- OUTSIDE RECORDS SUMMARY | 2024-08-30 20:37 | XMS_ITS | Encounter Summary ---
Author Organization [facility] Address [facility] [place]3 [place] [address] Care Team Providers Care Grader Meat Name Role Phone Deandre Bojorquez MD Unavailable [phone] Jeff Strickland MD Primary Care Provider [phone] Encounter Details Date Type Department Care Team (Late st Contact Info) Description 07/31/[address] [facility] MAIN LAB [address] [place] [address] Alan Davenport MD [facility] [place]1 [facility] [place] [address] Social History Tobacco Use Types Packs/Day Years Used Date Smoking Tobacco: Never Smokeless Tobacco: Never Alcohol Use Standard Drinks/Week Comments Not Currently 0 (1 standard drink = 0.6 oz pur e alcohol) socially in past Sex and Gender Information Value Date Recorded Sex Assigned at Male 07/02/2021 2:37 PM CDT Legal Sex Male 10:14 PM SUCCESS COACH Gender Identity Male 07/02/2021 2:37 PM CDT [...] CDT Hospital Encounter [facility] [address] [place] [address] Vanessa Medina MD [facility] [address] Cardiac Catheterization 09/01/2024 10:50 AM CDT - 09/01/2024 12:36 PM CDT Surgery [facility] - Cardiac Interior Design Assistant [address] [place] [address] Vanessa Medina MD [address] [place] [address] Staged Percutaneous Coronary Intervention 09/13/2024 10:40 AM CDT Office Visit [facility] - Endocrinology [address] [place] [address], [place] [address] Niraj Turner MD [address] [place] [address] [place] [address] 09/20/2024 2:20 PM CDT Office Visit [facility] - [facility] [address] [facility], [facility] [address] [place] [address] Hannah Goodman MD [address] [facility] [address] [place] [address] 10/13/2024 1:00 PM CDT [facility] [address] [facility], [place] [address] [place] [address] Maylin Cutler DO [address] [facility] [address] [place] [address] documented as of this encounter Procedures Procedure Name Priority Date/Time Associated Diagnosis Comments HOLD HLA SPECIMEN Routine 07/23/2023 2:0 5 PM CDT documented in this encounter Results * HOLD HLA SPECIMEN (07/23/2023 2:05 PM CDT) Hold HLA Specimen 07/31/2023 3:32 PM CDT [facility] ([facility]) Comment:The Hold HLA specime n has been received into the lab and will be held for 5 years at 4 degrees. Blood BLOOD SPECIMEN / Unknown 07/23/2023 2:05 PM CDT 07/31/2023 2:06 PM CDT us Alan Davenport MD LAB - BLOOD BANK ORDERABLES F inal Result [facility] ([facility]) [address] [place], [place] [id number] [place] [address] documented in this encounter Visit Diagnoses Not on filedocumented in this encounter Care Teams Grader Meat Relationship Specialty Start Date End Date Jeff Strickland MD [address] [place] [address] PCP - General 03/05/18 [place] [address] [place] [id number] Orthopedic Surgery 03/28/17 documented as of this encounter
--- OUTSIDE RECORDS SUMMARY | 2024-08-30 20:37 | XMS_ITS | Encounter Summary ---
Author Organization [facility] Address [facility]3 [place] [address] Care Team Providers Care Marketing Planner Name Role Phone Deandre Bojorquez MD Unavailable [phone] Jeff Strickland MD Primary Care Provider Encounter Details Date Type Department Care Team (Late st Contact Info) Description 03/12/2024 Lab Requisition [facility] MAIN LAB [address] [place] [phone] Alan Davenport MD [facility] [place] [place] [address] Social History Tobacco Use Types Packs/Day Years Used Date Smoking Tobacco: Never Smokeless Tobacco: Never Alcohol Use Standard Drinks/Week Comments Not Currently 0 (1 standard drink = 0.6 oz pur e alcohol) socially in past Sex and Gender Information Value Date Recorded Sex Assigned at Male 07/02/2021 2:37 PM CDT Legal Sex Male 10:14 PM BIOLOGY INTERN Gender Identity Male 07/02/2021 2:37 PM CDT [...] CDT Hospital Encounter [facility] [address] [place] [address] Vanessa Medina MD [facility] [address] [address] Cardiac Catheterization 09/01/2024 10:50 AM CDT - 09/01/2024 12:36 PM CDT Surgery [facility] - Cardiac Ambulance Operations Supervisor [address] [place] [address] Vanessa Medina MD [address] [place] [address] Staged Percutaneous Coronary Intervention 09/13/2024 10:40 AM CDT Office Visit [facility] - Endocrinology [address] [place] [address], [place] [address] Niraj Turner MD [address] [place] [address] [place] [address] 09/20/2024 2:20 PM CDT Office Visit [facility] [address] [facility], [facility] [address] [place] [address] Hannah Goodman MD [address] [facility] [address] [place] [address] 10/13/2024 1:00 PM CDT Office Visit [facility] Physician Group - Cardiology [address], [place] [address] [place] [address] Maylin Cutler DO [address] [facility] [address] [place] [address] documented as of this encounter Procedures Procedure Name Priority Date/Time Associated Diagnosis Comments HOLD HLA SPECIMEN Routine 03/05/2024 1:4 0 PM BIOLOGY INTERN documented in this encounter Results * HOLD HLA SPECIMEN (03/05/2024 1:40 PM BIOLOGY INTERN) Hold HLA Specimen 03/12/2024 3:00 PM BIOLOGY INTERN [facility] Comment:The Hold HLA specime n has been received into the lab and will be held for 5 years at 4 degrees. Blood BLOOD SPECIMEN / Unknown 03/05/2024 1:40 PM BIOLOGY INTERN 03/12/2024 1:40 PM BIOLOGY INTERN us Alan Davenport MD LAB - BLOOD BANK ORDERABLES F inal Result [facility] ([facility]) [address] [place] [address], [facility] documented in this encounter Visit Diagnoses Not on filedocumented in this encounter Care Teams Marketing Planner Relationship Specialty Start Date End Date Jeff Strickland MD [address] [place] [address] PCP - General 03/05/18 [place] [address] [place] [address] Orthopedic Surgery 03/28/17 documented as of this encounter
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
--- OUTSIDE RECORDS SUMMARY | 2024-08-30 20:37 | XMS_ITS | Clinical Summary ---
Author Organization [facility] Address [address] [place] [address] Phone Care Team Providers Care Steam Boiler Fireman Name Role Phone Jeff Strickland MD Primary Care Provider [phone] Allergies No known active allergies Medications pantoprazole [...] tablet Take 112 mcg by mouth daily drum maker. Active aspirin (ANGELLA) 325 mg tablet Take 325 mg by mouth daily. Active Vit C-Vit P-Czuqzp-KoJb-L utein (PRESERVISION) 226 mg-200 unit -5 mg-0.8 [...] Comments Blood Pressure 167/77 02/04/2019 9:16 AM REGULATOR MECHANIC Pulse 64 02/04/2019 9:16 AM REGULATOR MECHANIC Temperature 36.5 C (97.7 F) 02/04/2019 9:16 AM REGULATOR MECHANIC Respiratory Rate 16 02/04/2019 9:16 AM REGULATOR MECHANIC Oxygen Saturation 97% 02/04/2019 9:16 AM REGULATOR MECHANIC Inhaled Oxygen Concentration - - Weight 113.4 kg (250 lb) 02/04/2019 9:16 AM REGULATOR MECHANIC Height 175.3 cm (5' 9) 02/04/2019 9:16 AM REGULATOR MECHANIC Body Mass Index 36.92 02/04/2019 9:16 AM REGULATOR MECHANIC Plan of Treatment Health Maintenance Due Date [...] or Tdap) 04/10/2026 04/10/2016, 04/09/[address] [facility] BLUE ACCESS/TRUE BLUE PPO AETNA MEDICARE SUPPLEMENT PPO [facility] BLUE ACCESS/TRUE BLUE PPO Care Teams Steam Boiler Fireman Relationship Specialty Start Date End Date Jeff Strickland MD [address] [place] [phone] PCP - General Family Practice 01/01/19
--- OUTSIDE RECORDS SUMMARY | 2024-08-30 20:37 | XMS_ITS ---
Author Organization [facility] Address [address] [place] [address] Care Team Providers Care Shuttle Inspector Name Role Phone Jeff Strickland MD Primary Care Provider Chan Nicholas MD Unavailable Alan Mccall MD Unavailable [phone] Pepito Haro MD PhD Unavailable Solange Guido [...] Routine 07/25/2024 11:30 AM CDT POCT GLUCOSE [id number] Routine 07/23/2024 1: 26 PM CDT Type [...] ruled out EGFR Routine 04/13/2024 5:06 AM GEOMETRY TEACHER HEMOGLOBIN A1C STAT 04/10/2024 11:41 PM GEOMETRY TEACHER LIPID PANEL STAT 04/10/2024 11:41 PM GEOMETRY TEACHER from Last 3 Months or Most Recently [...] 300 + = 14 units Active FA-vit Jpzin-D-nbqp-vitamin D3 (Dialyvite 800-Ultra D) 0.8-2,000 mg-unit tablet [...] total) by mouth 06/04/19 25 Active vitamins A,C,J-dpju-nankqj (PreserVision AREDS) 4,296 mcg-226 mg-90 mg capsule [...] damage Assessment & Plan (03/09/2024 6:25 PM GEOMETRY TEACHER): Vision OD trends mild improvement, though still [...] that genetic results would not foreign exchange services manager. Given we have exhausted available treatment [...] 03/26/2021 Assessment & Plan (03/26/2021 1:17 PM GEOMETRY TEACHER): Enlarged mild sella turcica on a routine [...] units Assessment & Plan (03/26/2021 1:17 PM GEOMETRY TEACHER): Chronic, uncontrolled, improving A1c today 7.7 % [...] WNL Assessment & Plan (03/26/2021 1:16 PM GEOMETRY TEACHER): Pt currently on Levothyroxine 112 mcg oral [...] 11/18/2018 Assessment & Plan (01/21/2019 2:02 PM GEOMETRY TEACHER): Symptomatic. Will request for esophageal manometry. Continue [...] well Assessment & Plan (03/26/2021 1:16 PM GEOMETRY TEACHER): On statin therapy Tolerating well Last lipid [...] nephrectomy. 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 [id number] Immunizations Immunization Administration Dates Next Due Hep [...] = 0.6 oz pur e alcohol) rarely [facility] Utilities Answer Date Recorded In the past 12 months has [employer], gas, oil, or water [employer] threatened to shut off services in your [...] any clubs o r organizations such as restorationist groups, unions, fraternal or athletic groups, or [...] on file Legal Sex Male 2:23 AM GEOMETRY TEACHER Gender Identity Not on file Sexual Orientation [...] CDT Respiratory Rate 16 04/13/2024 8:33 AM GEOMETRY TEACHER Oxygen Saturation 98% 04/13/2024 8:33 AM GEOMETRY TEACHER Inhaled Oxygen Concentration - - Weight 122.3 [...] - outer retinal atrophy, improved CME Result [facility] Corina Ventura MD PhD OPHTH TOMOGRAPHY Final Result * Cardiology Document Scan (07/25/2024 11:30 AM CDT) Anatomical Region Laterality Modality Other Result [facility] Orlando Spencer MD CV CARDIAC SERVICES PROCEDURES Final Result * POCT glucose (07/23/2024 1:26 PM CDT) Glucose Blood, POC 104 Normal Fasting 70 - 100, Random <200 mg/dL Blood 07/23/2024 1:[address] [facility] Gregory Curtis MD POINT OF CARE TEST ORDERABLES Final Result * OCT, Retina - OU - Both Eyes (07/05/2024 2:45 PM CDT) Anatomical Region Laterality Modality Head Optical Coherenc e Tomography Narrative 07/07/2024 2:21 PM CDT Right Eye Quality was good. Left Eye Quality was good. Notes OD: worsened central macular edema (inner retinal layers) OS: worsened non-central macular edema Result [facility] Cinthia Chung MD OPHTH TOMOGRAPHY Final [...] thickness 102 micrometers. Notes Full OU Result [facility] Cinthia Chung MD OPHTH TOMOGRAPHY Final [...] Result * (ABNORMAL) eGFR (04/13/2024 5:06 AM GEOMETRY TEACHER) eGFR 5(L) >=60 mL/min/1. 73 m2 Comment: [...] last reviewed 2020. Blood 04/13/2024 5:06 AM GEOMETRY TEACHER 04/13/2024 5:31 AM GEOMETRY TEACHER us Saul Engle MD LAB BLOOD ORDERABLES Final Resul t [facility] Department [place] [address] * (ABNORMAL) Lipid panel (04/10/2024 11:41 PM GEOMETRY TEACHER) Cholesterol 145 30 - 199 mg/dL Comment: [...] on 2017. Triglycerides 453(H) <=149 mg/dL [facility] Comment: Interpretive Data Ages < or = [...] on 2017. HDL 22(L) >=40 mg/dL [facility] Comment: Interpretive Data Ages < or = [...] 2017. LDL, calculated See Comment <=129 [facility] Comment: Unable to calculate LDL due to [...] revised on 2023. Non-HDL Cholesterol 123 mg/dL [facility] Comment: Interpretive Data Ages < or = [...] last revised on 2017. Chol/HDL ratio 7 [facility] Blood 04/10/2024 11:4 1 PM GEOMETRY TEACHER 04/10/2024 11:55 PM GEOMETRY TEACHER us Nicole Boo MD LAB BLOOD ORDERABLES Final Result [facility] Department [place] [address] from Last 3 Months or Most Recently Relevant to Health Maintenance
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
== END 2024-08-30 19:18 | disposition left against medical advice (07) ==
LOC: ANHED 20:35
PROVIDERS: PCP Family Medicine
DX: R06.02 Shortness of breath (principal)
CPT/HCPCS: 99199

== ENCOUNTER 2024-09-30 22:07 | Emergency (ER) | payer MEDICARE, SELFPAY ==
[2024-09-30 22:27] VITALS: BP 103/60; PULSE 66; RESP 19; TEMP 37.2; O2SAT 100
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
--- OUTSIDE RECORDS SUMMARY | 2024-10-01 00:57 | XMS_ITS | Encounter Summary ---
Author Organization [facility] Address [address] [place] [address] Care Team Providers Care Volunteer Services Director Name Role Phone Deandre Bojorquez MD Unavailable [phone] Jeff Strickland MD Primary Care Provider [phone] Encounter Details Date Type Department Care Team (Late st Contact Info) Description 02/07/2023 Lab Requisition [facility] MAIN LAB [address] [place] [phone] Alan Davenport MD [facility] [facility] OF [place] [address] Social History Tobacco Use Types Packs/Day Years Used Date Smoking Tobacco: Never Smokeless Tobacco: Never Alcohol Use Standard Drinks/Week Comments Not Currently 0 (1 standard drink = 0.6 oz pur e alcohol) socially in past Sex and Gender Information Value Date Recorded Sex Assigned at Male 07/02/2021 2:37 PM CDT Legal Sex Male 10:14 PM PHYSICAL THERAPY AIDE Gender Identity Male 07/02/2021 2:37 PM CDT [...] Care Team (Late st Contact Info) Description 10/04/2024 11:40 AM CDT Office Visit [facility] - Cardiology [address] [facility] [address] [place] [address] Hannah Goodman MD [facility] DIV OF CARDIOLOGY [address] [place] [address] 10/05/2024 11:30 AM CDT Appointment [facility] VASCULAR US [address] [place] [address] Guy Messina MD [address] [place] [address] 2L DIV OF [facility] [place] [address] 10/05/2024 1:45 PM CDT Office Visit [facility] - Vascular Surgery [address] [facility], [facility] [place] [address] Guy Messina MD [facility]5 [facility] 2L DIV OF [facility] [place] [address] Elroy Holcomb MD [address] 2L [place] [address] 10/13/2024 1:00 PM CDT Office Visit [facility] - Cardiology [address] [place] [address] [place] [address] Maylin Culter DO [address] [facility] [address] [place] [address] 10/15/2024 3:00 PM CDT Appointment [facility] VASCULAR US [address] [place] [address] Hannah Goodman MD [address] [facility] DIV OF CARDIOLOGY [address] [place] [address] 12/06/2024 10:40 AM CDT Office Visit [facility] - Endocrinology [address] [facility], [place] [phone] Marbin Flores MD [address] [facility] DIV OF [place] [address] Niraj Turner MD [address] [facility] 2L [place] [address] documented as of this encounter Procedures Procedure Name Priority Date/Time Associated Diagnosis Comments HOLD HLA SPECIMEN Routine 2023 7:5 8 AM PHYSICAL THERAPY AIDE documented in this encounter Results * HOLD HLA SPECIMEN (2023 7:58 AM PHYSICAL THERAPY AIDE) Hold HLA Specimen 02/07/2023 9:01 AM PHYSICAL THERAPY AIDE [facility] Comment:The Hold HLA specime n has been received into the lab and will be held for 5 years at 4 degrees. Blood BLOOD SPECIMEN / Unknown 2023 7:58 AM PHYSICAL THERAPY AIDE 02/07/2023 7:59 AM PHYSICAL THERAPY AIDE us Alan Davenport MD LAB - BLOOD BANK ORDERABLES F inal Result [facility] [address] [place] [address], [facility] documented in this encounter Visit Diagnoses Not on filedocumented in this encounter Additional Health Concerns Infection Onset Date Last Indicated Resolved Time COVID-19 Under Investigation 09/13/2024 09/13/2024 09/13/2024 6:36 AM CDT documented as of this encounter Care Teams Volunteer Services Director Relationship Specialty Start Date End Date Jeff Strickland MD [address] [place] [address] PCP - General 03/05/18 [place] [address] [place] [address] Orthopedic Surgery 03/28/17 documented as of this encounter
--- OUTSIDE RECORDS SUMMARY | 2024-10-01 00:57 | XMS_ITS | Encounter Summary ---
Author Organization [facility] Address [address] [place] [address] Phone Care Team Providers Care Traveling Crane Operator Name Role Phone Jeff Strickland MD Primary Care Provider Chan Nicholas MD Unavailable [phone] Alan Mccall MD Unavailable [phone] Lorna Lantigua MD Unavailable [phone] Juliette Savage RN Unavailable Pepiot Haro MD PhD Unavailable Solange Guido MD Unavailable [phone] Letha Gil RN Unavailable [phone] Encounter Details Date Type Department Care Team (Late st Contact Info) Description 05/02/2021 Ophth Exam [facility] Ophthalmology [address] [place] [address] 1st [place] [address] Corina Ventura MD PhD [address] [facility] 6 [place] [address] Social History Tobacco Use Types [...] on file Legal Sex Male 2:23 AM ENGINE HOSTLER Gender Identity Not on file Sexual Orientation [...] COVID: Suspected 03/24/2023 03/24/2023 03/24/2023 5:45 PM ENGINE HOSTLER COVID19 03/24/2023 03/24/2023 04/08/2023 3:06 AM ENGINE HOSTLER COVID: Recovered Comment:Added based on recent COVID infection. 04/08/2023 04/10/2023 07/07/2023 3:06 AM C DT COVID: Suspected 04/10/2024 04/10/2024 04/11/2024 1:24 AM ENGINE HOSTLER C. difficile suspected 04/11/2024 04/11/202404/11 1:21 PM ENGINE HOSTLER documented as of this encounter Eye Exam [...] arcade Normal Periphery Normal Normal Care Teams Traveling Crane Operator Relationship Specialty Start Date End Date Jeff Strickland MD [address] [address] PCP - General Family Medicine 04/02/18 Chan Nicholas MD [facility] [address] [address] Consulting Physician Gastroenterology 11/24/18 Alan Mccall MD [facility] [address] [address] Referring Physician Nephrology 11/24/18 Lorna Lantigua MD [facility] [address] [address] Consulting Physician Cardiology 11/24/18 07/22/23 Juliette Savage, RN [address] [place] [address] Nurse Navigator 06/04/21 03/14/22 Pepito Haro MD PhD [address] [place] [address] Consulting Physician Neurosurgery 12/03/22 Solange Guido MD [address] [facility] [place] [address] Referring Physician Cardiovascular Disease 07/23/23 Letha Gil, RN [address] [facility] [address] [place] [address] [facility]OP Outpatient Director Human Services 04/14/24 04/18/24 documented as of this encounter
--- OUTSIDE RECORDS SUMMARY | 2024-10-01 00:57 | XMS_ITS | Encounter Summary ---
Author Organization [facility] Address [facility] [place] [address] Care Team Providers Care Stationary Engineer Apprentice Name Role Phone Deandre Bojorquez MD Unavailable [phone] Jeff Strickland MD Primary Care Provider [phone] Encounter Details Date Type Department Care Team (Late st Contact Info) Description 05/29/2023 Lab Requisition [facility] MAIN LAB [address] [place] [phone] Alan Davenport MD [facility]1 [facility] OF [place] [address] Social History Tobacco Use Types Packs/Day Years Used Date Smoking Tobacco: Never Smokeless Tobacco: Never Alcohol Use Standard Drinks/Week Comments Not Currently 0 (1 standard drink = 0.6 oz pur e alcohol) socially in past Sex and Gender Information Value Date Recorded Sex Assigned at Male 07/02/2021 2:37 PM CDT Legal Sex Male 10:14 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 PROFESSOR OF ECONOMICS Gender Identity Male 07/02/2021 2:37 PM CDT [...] Description 10/04/2024 11:40 AM CDT Office Visit [facility] - Cardiology [address] [facility] [address] [place] [address] [facility]1 [facility] DIV OF CARDIOLOGY [address] [place] [address] 10/05/2024 11:30 AM CDT Appointment [facility] VASCULAR US [address] [place] [address] Guy Messina MD [address] [place] [address] 2L DIV OF [facility] [place] [address] 10/05/2024 1:45 PM CDT Office Visit [facility] - Vascular Surgery [address] [facility], [facility] [place] [address] Guy Messina MD [facility] 2L DIV OF [facility] [place] [place] [address] Elroy Holcomb MD [address] 2[address] [place] [address] 10/13/2024 1:00 PM CDT Office Visit [facility] - Cardiology [address] [place] [address] [place] [address] Maylin Cutler DO [address] [facility] [address] [place] [address] 10/15/2024 3:00 PM CDT Appointment [facility] VASCULAR US [address] [place] [address] Hannah Goodman MD [address] [facility] DIV OF CARDIOLOGY [address] [place] [address] 12/06/2024 10:40 AM CDT Office Visit [facility] - Endocrinology [address] [facility], [place] [phone] Marbin Flores MD [address] [facility] [address] DIV [place] [address] Niraj Turner MD [address] [facility] 2L [place] [address] documented as of this encounter Procedures Procedure Name Priority Date/Time Associated Diagnosis Comments HOLD HLA SPECIMEN Routine 05/21/2023 9:2 4 AM CDT documented in this encounter Results * HOLD HLA SPECIMEN (05/21/2023 9:24 AM CDT) Hold HLA Specimen 05/29/2023 10:30 AM CDT [facility] ([facility] Comment:The Hold HLA specime n has been received into the lab and will be held for 5 years at 4 degrees. Blood BLOOD SPECIMEN / Unknown 05/21/2023 9:24 AM CDT 05/29/2023 9:24 AM CDT us Alan Davenport MD LAB - BLOOD BANK ORDERABLES F inal Result [facility] [address] [place] [address], [facility] documented in this encounter Visit Diagnoses Not on filedocumented in this encounter Additional Health Concerns Infection Onset Date Last Indicated Resolved Time COVID-19 Under Investigation 09/13/2024 09/13/2024 09/13/2024 6:36 AM CDT documented as of this encounter Care Teams Stationary Engineer Apprentice Relationship Specialty Start Date End Date Jeff Strickland MD [address] [place] [address] PCP - General 03/05/18 [place] [address] [facility] [address] [place] [address] Orthopedic Surgery 03/28/17 documented as of this encounter
--- OUTSIDE RECORDS SUMMARY | 2024-10-01 00:57 | XMS_ITS | Encounter Summary ---
Author Organization [facility] Address [facility]3 [place] [address] Care Team Providers Care Saddle Stitching Machine Operator Name Role Phone Deandre Bojorquez MD Unavailable [phone] Jeff Strickland MD Primary Care Provider [phone] Encounter Details Date Type Department Care Team (Late st Contact Info) Description 09/30/2023 Lab Requisition [facility] MA[facility] LAB [address] [place] [address] Alan Davenport MD [facility]1 [facility] [place] [address] Social History Tobacco Use Types Packs/Day Years Used Date Smoking Tobacco: Never Smokeless Tobacco: Never Alcohol Use Standard Drinks/Week Comments Not Currently 0 (1 standard drink = 0.6 oz pur e alcohol) socially in past Sex and Gender Information Value Date Recorded Sex Assigned at Male 07/02/2021 2:37 PM CDT Legal Sex Male 10:14 PM WORKFORCE STAFFING ADVISOR Gender Identity Male 07/02/2021 2:37 PM CDT [...] Description 10/04/2024 11:40 AM CDT Office Visit [facility] - Cardiology [address] [facility] [address] [place] [address] Hannah Goodman MD [facility]1 [facility] DIV OF CARDIOLOGY [address] [place] [address] 10/05/2024 11:30 AM CDT Appointment [facility] VASCULAR US [address] [place] [address] Guy Messina MD [address] [place] [address] 2L DIV OF [facility] [place] [address] 10/05/2024 1:45 PM CDT Office Visit [facility] - Vascular Surgery [address] [facility], [facility] [place] [address] Guy Messina MD [facility] 2L DIV OF [facility] [place] [address] Elroy Holcomb MD [address] 2L [place] [address] 10/13/2024 1:00 PM CDT Office Visit [facility] - Cardiology [address] [place] [address] [place] [address] Maylin Cutler DO [address] [facility] [address] [address] [place] [address] 10/15/2024 3:00 PM CDT Appointment [facility] VASCULAR US [address] [place] [address] Hannah Goodman MD [address] [facility] DIV OF CARDIOLOGY 2L [place] [address] 12/06/2024 10:40 AM CDT Office Visit [facility] - Endocrinology 12[address] [facility], [place] [address] Marbin Flores MD [address] [facility] [address] DIV OF [place] [address] Niraj Turner MD 1225 [facility] 2L [place] [address] documented as of this encounter Procedures Procedure Name Priority Date/Time Associated Diagnosis Comments HOLD HLA SPECIMEN Routine 09/24/2023 3:2 7 PM CDT documented in this encounter Results * HOLD HLA SPECIMEN (09/24/2023 3:27 PM CDT) Hold HLA Specimen 09/30/2023 4:32 PM CDT [facility] Comment:The Hold HLA specime n has been received into the lab and will be held for 5 years at 4 degrees. Blood BLOOD SPECIMEN / Unknown 09/24/2023 3:27 PM CDT 09/30/2023 3:27 PM CDT us Alan Davenport MD LAB - BLOOD BANK ORDERABLES F inal Result [facility] [address] [place] [address], [facility] documented in this encounter Visit Diagnoses Not on filedocumented in this encounter Additional Health Concerns Infection Onset Date Last Indicated Resolved Time COVID-19 Under Investigation 09/13/2024 09/13/2024 09/13/2024 6:36 AM CDT documented as of this encounter Care Teams Saddle Stitching Machine Operator Relationship Specialty Start Date End Date Jeff Strickland MD [address] [place] [address] PCP - General 03/05/18 [place] [address] [facility] [address] [place] [address] Orthopedic Surgery 03/28/17 documented as of this encounter
--- OUTSIDE RECORDS SUMMARY | 2024-10-01 00:57 | XMS_ITS | Encounter Summary ---
Author Organization [facility] Address [facility]3 [place] [address] Care Team Providers Care Liquor Gallery Operator Name Role Phone Deandre Bojorquez MD Unavailable [phone] Jeff Strickland MD Primary Care Provider [phone] Encounter Details Date Type Department Care Team (Late st Contact Info) Description 04/10/2023 Lab Requisition [facility] [address] [place] [phone] Alan Davenport MD [facility]1 [facility] [place] [address] Social History Tobacco Use Types Packs/Day Years Used Date Smoking Tobacco: Never Smokeless Tobacco: Never Alcohol Use Standard Drinks/Week Comments Not Currently 0 (1 standard drink = 0.6 oz pur e alcohol) socially in past Sex and Gender Information Value Date Recorded Sex Assigned at Male 07/02/2021 2:37 PM CDT Legal Sex Male 10:[address] Gender Identity Male 07/02/2021 2:37 PM CDT [...] Description 10/04/2024 11:40 AM CDT Office Visit [facility] - Cardiology [address] [facility] 1[address] [place] [address] Hannha Goodman MD [facility]1 [facility] DIV OF CARDIOLOGY [address] [place] [address] 10/05/2024 11:30 AM CDT Appointment [facility] VASCULAR US [address] [place] [address] Guy Messina MD [address] [place] [address] 2L DIV OF [facility] [place] [address] 10/05/2024 1:45 PM CDT Office Visit [facility] - Vascular Surgery [address] [facility] [place] [address] Guy Messina MD [facility]5 [facility] 2L DIV OF [facility] [place] [address] Elroy Holcomb MD [address] 2L [place] [address] 10/13/2024 1:00 PM CDT Office Visit [facility] - Cardiology [address], [place] [address] [place] [address] Maylin Cutler DO [address] [place] [address] 10/15/2024 3:00 PM CDT Appointment [facility] VASCULAR US [address] [place] [address] Hannah Goodman MD [address] [facility] DIV OF CARDIOLOGY [address]L [place] [address] 12/06/2024 10:40 AM CDT Office Visit [facility] - Endocrinology 12[address] [facility], [place] [address] Marbin Flores MD [address] [facility] [address] DIV [place] [address] Niraj Turner MD 1225 [facility] 2L [place] [address] documented as of this encounter Procedures Procedure Name Priority Date/Time Associated Diagnosis Comments HOLD HLA SPECIMEN Routine 04/02/2023 3:[address] documented in this encounter Results * HOLD HLA SPECIMEN (04/02/2023 3:[address] PRODUCTION) Hold HLA Specimen 04/10/2023 4:[address] [facility] Comment:The Hold HLA specime n has been received into the lab and will be held for 5 years at 4 degrees. Blood BLOOD SPECIMEN / Unknown 04/02/2023 3:[address] PRODUCTION 04/10/2023 3:[address] PR[address] us Alan Davenport MD LAB - BLOOD BANK ORDERABLES F inal Result [facility] [address] [place] [address], [facility] documented in this encounter Visit Diagnoses Not on filedocumented in this encounter Additional Health Concerns Infection Onset Date Last Indicated Resolved Time COVID-19 Under Investigation 09/13/2024 09/13/2024 09/13/2024 6:36 AM CDT documented as of this encounter Care Teams Liquor Gallery Operator Relationship Specialty Start Date End Date Jeff Strickland MD [address] [place] [address] PCP - General 03/05/18 [place] [address] [place] [address] Orthopedic Surgery 03/28/17 documented as of this encounter
--- OUTSIDE RECORDS SUMMARY | 2024-10-01 00:57 | XMS_ITS | Patient Health Record ---
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 He denies tobacco, alcohol, or illicit drug abuse The patient is retired. 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 He denies tobacco, alcohol, or illicit drug abuse The patient is retired. 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 He denies tobacco, alcohol, or illicit drug abuse The patient is retired. 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 He denies tobacco, alcohol, or illicit drug abuse The patient is retired. 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 He denies tobacco, alcohol, or illicit drug abuse The patient is retired. 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 He denies tobacco, alcohol, or illicit drug abuse The patient is retired. 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 He denies tobacco, alcohol, or illicit drug abuse The patient is retired. 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 He denies tobacco, alcohol, or illicit drug abuse The patient is retired. 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 He denies tobacco, alcohol, or illicit drug abuse The patient is retired. 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 He denies tobacco, alcohol, or illicit drug abuse The patient is retired. 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 He denies tobacco, alcohol, or illicit drug abuse The patient is retired. 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 He denies tobacco, alcohol, or illicit drug abuse The patient is retired. 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 He denies tobacco, alcohol, or illicit drug abuse The patient is retired. 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) Active confirmed Localized, primary osteoarthritis of the shoulder region (079255162) Problem Pain in left hip (M25.552) Active confirmed Pain of left hi p joint (finding) (457687055536071) Problem Spondylosis without myelopathy or radiculopathy, lumbar region (M47.816) Active confirmed Lumbosacral spondylosis without myelopathy (83068664) Problem Other intervertebral disc degeneration, lumbar region (M51.36) Active confirmed Degeneration of lumbar intervertebral disc (62722333) Problem Radiculopathy, lumbar region (M54.16) Active confirmed Lumbar radiculopathy (503491946) Problem Radiculopathy, lumbosacral region (M54.17) Active confirmed Lumbosacral radiculopathy (5302451) Problem Osseous stenosis of neural canal of lumbar region (M99.33) Active confirmed Spinal stenosis of lumbar region (21301568) Problem exterminator (current) use of anticoagulants (Z79.01) Active confirmed Long-term curre nt use of anticoagulant (810677483) Problem Other intervertebral disc degeneration, lumbar region [...] Date Provider Diagnosis [facility] [address] [place] [address] 01/12/2024 Sergio Stynowick Radiculopathy, lumba r region M54.16 ; Radiculopathy, lumbosacral region M54.17 ; Other chest pain R07.89 ; Other intervertebral disc degeneration, lumbar region M51.36 ; 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 ; Spondylosis without myelopathy or radiculopathy, lumbar region M47.816 and exterminator (current) use of anticoagulants Z79.01 [facility] [address] [place] [address] 01/19/2024 Sergio Stynowick Radiculopathy, lumba r region M54.16 ; Other intervertebral disc degeneration, lumbar region with discogenic back pain and lower extremity pain M51.362 and 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 [facility] [address] [place] [address] 02/03/2024 Sergio Stynowick Other chest pain R07.89 ; Pain in left knee M25.562 ; Radiculopathy, lumbar region M54.16 ; Other intervertebral disc degeneration, lumbar region M51.36 ; 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 ; Spondylosis without myelopathy or radiculopathy, lumbar region M47.816 and snf (current) use of anticoagulants Z79.01 [facility] [address] [place] [address] 03/03/2024 Sergio Stynowick Pain in left knee [...] left shoulder M25.512 [facility] [address] [place] [address] 03/08/2024 Sergio Stynowick Primary osteoarthritis, unspecified shoulder M19.019 [facility] [address] [place] [address] 03/31/2024 Sergio Schmitzick ASSESSMENTS Encounter Date Diagnosis Assessment Notes Treatment Notes Treatment Clinical Notes Section Notes 01/12/2024 Radiculopathy, lumbar region (ICD-10 - M54.16) [...] 01/12/2024 Other chest pain (ICD-10 - R07.89) 01/12/2024 Other intervertebral disc degeneration, lumbar region (ICD-10 - M51.36) 02/03/2024 Other intervertebral disc degeneration, lumbar region (ICD-10 - M51.36) 03/03/2024 Radiculopathy, lumbar region (ICD-10 - M54.16) 03/03/2024 Other intervertebral disc degeneration, lumbar region (ICD-10 - M51.36) 01/12/2024 Osseous stenosis of neural canal of lumbar region (ICD-10 - M99.33) 02/03/2024 Osseous stenosis of neural canal of lumbar region (ICD-10 - M99.33) 01/12/2024 Spondylosis without myelopathy or radiculopathy, lumbar region (ICD-10 - M47.816) 02/03/2024 Spondylosis without myelopathy or radiculopathy, lumbar region (ICD-10 - M47.816) 03/03/2024 Osseous stenosis of neural canal of lumbar region (ICD-10 - M99.33) 01/12/2024 exterminator (current) use of anticoagulants (ICD-10 - Z79.01) The patient was instructed to discontinue aspirin for 6 days prior to the procedure. I made the patient aware that he will be at an increased risk for a thromboembolic event during this time and he is willing to accept this risk. The patient was instructed to notify his primary care physician and/or mill washer to obtain clearance prior to discontinuing this medication. 02/03/2024 snf (current) use of anticoagulants (ICD-10 - Z79.01) 03/03/2024 Spondylosis without myelopathy or radiculopathy, lumbar region (ICD-10 - M47.816) 03/03/2024 exterminator (current) use of anticoagulants (ICD-10 - Z79.01) 03/03/2024 Pain in right shoulder (ICD-10 - M25.511) 03/03/2024 Pain in left shoulder (ICD-10 - M25.512) 01/12/2024 Other The above-named patient was evaluated [...] Coverage End Date [employer] MED[employer]ARE [address] [place] [address] [id number] GRACE INTERIANO Self - patient is the insured MEDICAL (GENERAL) HISTORY Medical History History ICD Code Hypertension Hypothyroidism Diabetes type 2 Gastroesophageal reflux disease (GERD) Renal cell cancer Chronic kidney disease stage 4 Sleep apnea CHF Surgical History Surgery Date(Month/Year) Right total knee arthroplasty 08/2015 Cholecystectomy Hernia repair 2019 Cardiac stent 07/2020
--- OUTSIDE RECORDS SUMMARY | 2024-10-01 00:57 | XMS_ITS | Encounter Summary ---
Author Organization [facility] Address [facility] [place] [address] Care Team Providers Care Patient Accounts Coordinator Name Role Phone Deandre Bojorquez MD Unavailable [phone] Jeff Strickland MD Primary Care Provider [phone] Encounter Details Date Type Department Care Team (Late st Contact Info) Description 10/28/2023 Lab Requisition [facility] MAIN LAB [address] [place] [address] Alan Davenport MD [facility]1 [facility] OF [place] [address] Social History Tobacco Use Types Packs/Day Years Used Date Smoking Tobacco: Never Smokeless Tobacco: Never Alcohol Use Standard Drinks/Week Comments Not Currently 0 (1 standard drink = 0.6 oz pur e alcohol) socially in past Sex and Gender Information Value Date Recorded Sex Assigned at Male 07/02/2021 2:37 PM CDT 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 Gender Identity Male 07/02/2021 2:37 PM [...] Description 10/04/2024 11:40 AM CDT Office Visit [facility] - Cardiology [address] [facility] [address] [place] [address] Hannah Goodman MD [facility]1 [facility] DIV OF CARDIOLOGY [address] [place] [address] 10/05/2024 11:30 AM CDT Appointment [facility] VASCULAR US [address] [place] [address] Guy Messina MD [address] [place] [address] 2L DIV OF [facility] [place] [address] 10/05/2024 1:45 PM CDT Office Visit [facility] - Vascular Surgery 12[address] [facility] [place] [address] Guy Messina MD [facility]5 [facility] 2L DIV OF [facility] [place] [address] Elroy Holcomb MD [address] 2L [place] [address] 10/13/2024 1:00 PM CDT Office Visit [facility] - Cardiology [address], [place] [address] [place] [address] Maylin Cutler DO [address] [place] [address] 10/15/2024 3:00 PM CDT Appointment [facility] VASC[facility] US [address] [place] [address] Hannah Goodman MD [address] [facility] DIV OF [facility]OLOGY [address] [place] [address] 12/06/2024 10:40 AM CDT Office Visit [facility] - Endocrinology [address] [facility], [place] [address] Marbin Flores MD [address] [facility] [address] DIV OF [place] [address] Niraj Turner MD 1225 [facility] 2L [place] [address] documented as of this encounter Procedures Procedure Name Priority Date/Time Associated Diagnosis Comments HOLD HLA SPECIMEN Routine 10/22/2023 3:5 0 PM CDT documented in this encounter Results * HOLD HLA SPECIMEN (10/22/2023 3:50 PM CDT) Hold HLA Specimen 10/28/2023 5:00 PM CDT [facility] Comment:The Hold HLA specime n has been received into the lab and will be held for 5 years at 4 degrees. Blood BLOOD SPECIMEN / Unknown 10/22/2023 3:50 PM CDT 10/28/2023 3:50 PM CDT us Alan Davenport MD LAB - BLOOD BANK ORDERABLES F inal Result [facility] [address] [place] [address], [facility] documented in this encounter Visit Diagnoses Not on filedocumented in this encounter Additional Health Concerns Infection Onset Date Last Indicated Resolved Time COVID-19 Under Investigation 09/13/2024 09/13/2024 09/13/2024 6:36 AM CDT documented as of this encounter Care Teams Patient Accounts Coordinator Relationship Specialty Start Date End Date Jeff Strickland MD [address] [place] [address] PCP - General 03/05/18 [place] [address] [facility] [address] [place] [address] Orthopedic Surgery 03/28/17 documented as of this encounter
--- OUTSIDE RECORDS SUMMARY | 2024-10-01 00:57 | XMS_ITS | Encounter Summary ---
Author Organization [facility] Address [facility]3 [place] [address] Care Team Providers Care Operational Intelligence Analyst Name Role Phone Deandre Bojorquez MD Unavailable [phone] Jeff Strickland MD Primary Care Provider [phone] Encounter Details Date Type Department Care Team (Late st Contact Info) Description 07/31/2023 Lab Requisition [facility] [address] [place] [phone] Alan Davenport MD 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 Gender Identity Male 07/02/2021 2:37 PM CDT [...] Description 10/04/2024 11:40 AM CDT Office Visit [facility] - Cardiology [address] [facility] [address] [place] [address] Hannah Goodman MD [facility] DIV OF CARDIOLOGY [address] [place] [address] 10/05/2024 11:30 AM CDT Appointment [facility] [address] [place] [address] Guy Messina MD [address] [place] [address] 2L DIV OF [facility] [place] [address] 10/05/2024 1:45 PM CDT Office Visit [facility] - Vascular Surgery [address] [facility], [facility] [place] [address] Guy Messina MD [facility] 2L DIV OF [facility] [place] [address] Elroy Holcomb MD [address] 2L [place] [address] 10/13/2024 1:00 PM CDT Office Visit [facility] - Cardiology [address] [place] [address] [place] [address] Maylin Cutler DO [address] [facility] [place] [address] 10/15/2024 3:00 PM CDT Appointment [facility] [address] [place] [address] Hannah Goodman MD [address] [facility] DIV OF CARDIOLOGY [address]L [place] [address] 12/06/2024 10:40 AM CDT Office Visit [facility] - Endocrinology [address] [facility], [place] [address] Marbin Flores MD [address] [facility] [address] DIV OF [place] [address] Niraj Turner MD [address] [facility] 2L [place] [address] documented as of this encounter Procedures Procedure Name Priority Date/Time Associated Diagnosis Comments HOLD HLA SPECIMEN Routine 07/23/2023 2:0 5 PM CDT documented in this encounter Results * HOLD HLA SPECIMEN (07/23/2023 2:05 PM CDT) Hold HLA Specimen 07/31/2023 3:32 PM CDT [facility] Comment:The Hold HLA specime n has been received into the lab and will be held for 5 years at 4 degrees. Blood BLOOD SPECIMEN / Unknown 07/23/2023 2:05 PM CDT 07/31/2023 2:06 PM CDT us Alan Davenport MD LAB - BLOOD BANK ORDERABLES F inal Result [facility] [address] [place] [address], [facility] documented in this encounter Visit Diagnoses Not on filedocumented in this encounter Additional Health Concerns Infection Onset Date Last Indicated Resolved Time COVID-19 Under Investigation 09/13/2024 09/13/2024 09/13/2024 6:36 AM CDT documented as of this encounter Care Teams Operational Intelligence Analyst Relationship Specialty Start Date End Date Jeff Strickland MD [address] [place] [address] PCP - General 03/05/18 [place] [address] [facility] [address] [place] [address] Orthopedic Surgery 03/28/17 documented as of this encounter
--- OUTSIDE RECORDS SUMMARY | 2024-10-01 00:58 | XMS_ITS | Encounter Summary ---
Author Organization [facility] Address [facility]3 [place] [address] Care Team Providers Care Corporate Travel Coordinator Name Role Phone Deandre Bojorquez MD Unavailable Jeff Strickland MD Primary Care Provider [phone] Encounter Details Date Type Department Care Team (Late st Contact Info) Description 03/30/2024 Lab Requisition [facility] [address] [place] [phone] Alan Davenport MD [facility] OF [place] [address] Social History Tobacco Use Types Packs/Day Years Used Date Smoking Tobacco: Never Smokeless Tobacco: Never Alcohol Use Standard Drinks/Week Comments Not Currently 0 (1 standard drink = 0.6 oz pur e alcohol) socially in past Sex and Gender Information Value Date Recorded Sex Assigned at Male 07/02/2021 2:37 PM CDT 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 1[address] [place] [address] Hannah Goodman MD [facility] DIV OF CARDIOLOGY [address] [place] [address] 10/05/2024 11:30 AM CDT Appointment [facility] [address] [place] [address] Guy Messina MD [address] [place] [address] 2L DIV OF [facility] [place] [address] 10/05/2024 1:45 PM CDT Office Visit [facility] - Vascular Surgery [address] [facility] [place] [address] Guy Messina MD [facility] 2L DIV OF [facility] [place] [address] Elroy Holcomb MD [address] 2L [place] [address] 10/13/2024 1:00 PM CDT Office Visit [facility] - Cardiology [address], [place] [address] [place] [address] Maylin Cutler DO [address] [facility] [address] [place] [address] 10/15/2024 3:00 PM CDT Appointment [facility] US [address] [place] [address] Hannah Goodman MD [address] [facility] DIV OF CARDIOLOGY 2L [place] [address] 12/06/2024 10:40 AM CDT Office Visit [facility] - Endocrinology 12[address] [facility], [place] [address] Marbin Flores MD [address] [facility] [address] DIV [place] [address] Niraj Turner MD 1225 [facility] 2L [place] [address] documented as of this encounter Procedures Procedure Name Priority Date/Time Associated Diagnosis Comments HOLD HLA SPECIMEN Routine 03/25/2024 2:5 1 PM THERMOSPRAY OPERATOR documented in this encounter Results * HOLD HLA SPECIMEN (03/25/2024 2:51 PM THERMOSPRAY OPERATOR) Hold HLA Specimen 03/30/2024 4:01 PM THERMOSPRAY OPERATOR [facility] ([facility]) Comment:The Hold HLA specime n has been received into the lab and will be held for 5 years at 4 degrees. Blood BLOOD SPECIMEN / Unknown 03/25/2024 2:51 PM THERMOSPRAY OPERATOR 03/30/2024 2:51 PM THERMOSPRAY OPERATOR us Alan Davenport MD LAB - BLOOD BANK ORDERABLES F inal Result [facility] [address] [place] [address], [facility] documented in this encounter Visit Diagnoses Not on filedocumented in this encounter Additional Health Concerns Infection Onset Date Last Indicated Resolved Time COVID-19 Under Investigation 09/13/2024 09/13/2024 09/13/2024 6:36 AM CDT documented as of this encounter Care Teams Corporate Travel Coordinator Relationship Specialty Start Date End Date Jeff Strickland MD [address] [place] [address] PCP - General 03/05/18 [place] [address] [place] [address] Orthopedic Surgery 03/28/17 documented as of this encounter
--- OUTSIDE RECORDS SUMMARY | 2024-10-01 00:58 | XMS_ITS | Encounter Summary ---
Author Organization [facility] Address [address] [facility] [place] [address] Care Team Providers Care Carburetor Repairer Name Role Phone Deandre Bojorquez MD Unavailable [phone] Jeff Strickland MD Primary Care Provider [phone] Reason for Visit * Reason Onset Date Comments Post-Op 09/03/2024 Encounter Details Date Type Department Care Team (Late st Contact Info) Description 09/03/2024 Telephone [facility] - Cardiology [address] [facility], [facility] 1[address] [place] [address] Hannah Goodman MD [address] [facility] 2L [place] [address] Post-Op Social History Tobacco Use Types Packs/Day Years Used Date Smoking Tobacco: Never Smokeless Tobacco: Never Alcohol Use Standard Drinks/Week Comments Not Currently 0 (1 standard drink = 0.6 oz pur e alcohol) socially in past AUDIT-C Answer Date Recorded Q1: How often do you have a drink containing alcohol? Monthly or less 09/04/2024 Q2: How many drinks containi ng alcohol do you have on a typical day when you are drinking? Patient does not drink Q3: How often do you have si x or more drinks on one occasion? Less than monthly 09/04/2024 Overall Financial Resource Strain (CARDIA) Answe r Date Recorded How hard is it for you to pa y for the very basics like food, housing, medical care, and heating? Not hard at all 09/04/2024 [facility] [place] of Occupat ional Health - Occupational Stress Questionnaire Answer Date Recorded Do you feel stress - tense, restless, nervous, or anxious, or unable to sleep at night because your mind is troubled all the time - these days? Not at all 09/04/2024 Hunger Vital Sign Answer Date Recorded Within the past 12 months, y ou worried that your food would run out before you got the money to buy more. Never true 09/05/19 25 Within the past 12 months, t he food you bought just didn't last and you didn't have money to get more. Never true 09/04/2024 PRAPARE - Transportation Answer Date Re corded In the past 12 months, has l ack of transportation kept you from medical appointments or from getting medications? No 08/17 In the past 12 months, has l ack of transportation kept you from meetings, work, or from getting things needed for daily living? No 09/04/2024 Housing Stability Vital Sign Answer Frankie e Recorded In the last 12 months, was t here a time when you were not able to pay the mortgage or rent on time? No 09/04/2024 In the past 12 months, how m any times have you moved where you were living? 0 09/04/2024 At any time in the past 12 m [facility], were you homeless or living in a snf (including now)? 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 Monthly or less 09/04/2024 1:56 PM CDT Esther Dhillon, PORSHA Q2: How many drinks containing alcohol do you have on a typical day when you are drinking? Patient does not drink 09/04/2024 1:56 PM CDT Esther Dhillon RN Q3: How often do you have six or more drinks on one occasion? Less than monthly 09/04/2024 1:56 PM CDT Esther Dhillon RN * Audit-C Score Answer Date of Assessment Author 2 09/04/2024 1:56 PM CDT Robert Dhillon RN * Is person deaf or have serious hearing difficulty? Answer Date of Assessment Author No 09/01/2024 2:47 PM CDT Jenny Guevara RN * Is person blind or have serious difficulty seeing? Answer Date of Assessment Author No 09/01/2024 2:47 PM CDT Jenny Guevara RN * Does person have serious difficulty walking/climbing stairs? Answer Date of Assessment Author Yes 09/01/2024 2:47 PM ELIANAT Jenny Guevara RN * Does person have difficulty dressing/bathing? Answer Date of Assessment Author No 09/01/2024 2:47 PM Jenny Garcia RN * Does person have difficulty doing errands alone? Answer Date of Assessment Author Yes 09/01/2024 2:47 PM Jenny Garcia RN documented as of this encounter Mental Status * Does person have difficulty concentrating/remembering/making decisions? Answer Entry Date Author No 09/01/2024 2:47 PM Jenny Garcia RN documented in this encounter Miscellaneous Notes * Telephone Encounter - Brandi Sosa RN - 09/03/2024 2:54 PM CDT Returned call to patient spouse nithya, she reports patient getting confused at night for example she tries to help him on the toilet but he can't move or has to think about moving his legs. Spouse states patient had two procedures a PCI with Dr. Medina on 09/01/2024 and a peripheral angiogram with Dr. Goodman on 08/18/2024. She says the confusion has been happening since after the procedure with Dr. Goodman but patient has gotten weaker with each procedure. Please advise. Patient has follow up appointment with Dr. Goodman on 09/20/2024 * Telephone Encounter - Leatha Chung - 09/03/2024 8:46 AM CDT Reason for call: Patients spouse would like a call back to speak with someone in office, stating the pt recently had a procedure done on 09/01 and has been acting confused post op Patient Call Back number: [phone] documented in this encounter Plan of Treatment Upcoming Encounters Date Type Department Care Team (Late st Contact Info) Description 10/04/2024 11:40 AM CDT Office Visit [facility] - Cardiology [address] [phone] Hannah Goodman MD 1201 [facility] DIV OF CARDIOLOGY 2L [place] [address] 10/05/2024 11:30 AM CDT Appointment [facility] V[facility] US 12[address] [place] [phone] Guy Messina MD 1225 [facility] 2L DIV OF [facility] [place] [address] 10/05/2024 1:45 PM CDT Office Visit [facility] Group - Vascular Surgery 1225 [facility] [place] [address] Guy Messina MD 1225 [facility] 2L DIV OF [facility] [place] [address] Elroy Holcomb MD 12[address] [facility] 2L [place] [address] 10/13/2024 1:00 PM CDT Office Visit [facility] - Cardiology [address] [phone] Maylin Cutler, [address] [facility] [address] [place] [address] 10/15/2024 3:00 PM CDT Appointment [facility] VASC[facility] US [address] [place] [address] Hannah Goodman MD [address] [facility] DIV OF CARDIOLOGY 2L [place] [address] 12/06/2024 10:40 AM CDT [facility] 1225 [facility], [place] [address] Marbin Flores MD [address] [facility] DIV [place] [address] Niraj Turner MD 1225 [facility] 2L [place] [address] documented as of this encounter Visit Diagnoses Not on filedocumented in this encounter Additional Health Concerns Infection Onset Date Last Indicated Resolved Time COVID-19 Under Investigation 09/13/2024 09/13/2024 09/13/2024 6:36 AM CDT documented as of this encounter Care Teams Carburetor Repairer Relationship Specialty Start Date End Date Jeff Strickland MD [address] [place] [address] PCP - General 03/05/18 [place] [address] [facility] [address] [place] [address] Orthopedic Surgery 03/28/17 documented as of this encounter
--- OUTSIDE RECORDS SUMMARY | 2024-10-01 00:58 | XMS_ITS ---
Author Organization [facility] Address [address] [facility] [place] [address] Care Team Providers Care Brake Rider Name Role Phone DONNIE WOOD MD Primary Care Provider Unavaila Sergio Trujillo Unavailable [phone] Encounters Encounter Location Date Provider Diagnosis [facility] [address] [facility] [place] [address] [place] [address] 03/31/2024 Sergio Rivera PLAN OF TREATMENT No Information
--- OUTSIDE RECORDS SUMMARY | 2024-10-01 00:58 | XMS_ITS | Encounter Summary ---
Author Organization [facility] Address [address] [place] [address] Care Team Providers Care Computer Engineering Professor Name Role Phone Deandre Bojorquez MD Unavailable [phone] Jeff Strickland MD Primary Care Provider [phone] Encounter Details Date Type Department Care Team (Late st Contact Info) Description 09/24/2024 Results Follow-Up [facility] Early Admission Unit [address] [place] [phone] Angel Crook MD Social History Tobacco Use Types Packs/Day Years Used Date Smoking Tobacco: Never Smokeless Tobacco: Never Alcohol Use Standard Drinks/Week Comments Not Currently 0 (1 standard drink = 0.6 oz pur e alcohol) socially in past AUDIT-C Answer Date Recorded Q1: How often do you have a drink containing alcohol? Never 09/24/2024 Q2: How many drinks containi ng alcohol do you have on a typical day when you are drinking? Patient does not drink Q3: How often do you have si x or more drinks on one occasion? Never 09/24/2024 Overall Financial Resource Strain (CARDIA) Answe r Date Recorded How hard is it for you to pa y for the very basics like food, housing, medical care, and heating? Not hard at all 09/24/2024 [facility] [place] of Occupat ional Health - Occupational Stress Questionnaire Answer Date Recorded Do you feel stress - tense, restless, nervous, or anxious, or unable to sleep at night because your mind is troubled all the time - these days? Not at all 09/24/2024 Hunger Vital Sign Answer Date Recorded Within the past 12 months, y ou worried that your food would run out before you got the money to buy more. Never true 09/25/19 25 Within the past 12 months, t he food you bought just didn't last and you didn't have money to get more. Never true 09/24/2024 PRAPARE - Transportation Answer Date Re corded In the past 12 months, has l ack of transportation kept you from medical appointments or from getting medications? No 09/2024 In the past 12 months, has l ack of transportation kept you from meetings, work, or from getting things needed for daily living? No 09/24/2024 Housing Stability Vital Sign Answer Frankie e Recorded In the last 12 months, was t here a time when you were not able to pay the mortgage or rent on time? No 09/24/2024 In the past 12 months, how m any times have you moved where you were living? 0 09/24/2024 At any time in the past 12 m [facility], were you homeless or living in a long term (including now)? 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 Never 09/24/2024 4:31 AM ELIANAT Francy Vigil RN Q2: How many drinks containing alcohol do you have on a typical day when you are drinking? Patient does not drink 09/24/2024 4:31 AM CDT Francy Vigil, RN Q3: How often do you have six or more drinks on one occasion? Never 09/24/2024 4:31 AM CDT Francy Vigil RN * Audit-C Score Answer Date of Assessment Author 0 09/24/2024 4:31 AM CDT Francy Vigil RN * Is person deaf or have serious hearing difficulty? Answer Date of Assessment Author No 09/24/2024 5:33 AM ELIANAT Francy Vigil RN * Is person blind or have serious difficulty seeing? Answer Date of Assessment Author No 09/24/2024 5:33 AM ELIANAT Francy Vigil RN * Does person have serious difficulty walking/climbing stairs? Answer Date of Assessment Author No 09/24/2024 5:33 AM ELIANAT Francy Vigil RN * Does person have difficulty dressing/bathing? Answer Date of Assessment Author No 09/24/2024 5:33 AM ELIANAT Francy Vigil RN * Does person have difficulty doing errands alone? Answer Date of Assessment Author No 09/24/2024 5:33 AM Francy Farley RN documented as of this encounter Mental Status * Does person have difficulty concentrating/remembering/making decisions? Answer Entry Date Author No 09/24/2024 5:33 AM Francy Farley RN documented in this encounter Plan of Treatment Upcoming Encounters Date Type Department Care Team (Late st Contact Info) Description 10/04/2024 11:40 AM CDT Office Visit [facility] - Cardiology [address] [facility] 1[address] [place] [address] Hannah Goodman MD 1201 [facility] DIV OF CARDIOLOGY 2L [place] [address] 10/05/2024 11:30 AM CDT Appointment [facility] VASCULAR US [address] [place] [address] Guy Messina MD 1225 [facility] 2L DIV OF [facility] [place] [address] 10/05/2024 1:45 PM CDT Office Visit [facility] - Vascular Surgery 1225 [facility], [place] [address] Guy Messina MD [address] 2L DIV OF [place] [address] Elroy Holcomb MD [address] S [facility] 2L DIV [place] [address] 10/13/2024 1:00 PM CDT [facility] [address] [facility] [place] [address] [place] [address] Maylin Cutler DO [address] [facility] [address] [place] [address] 10/15/2024 3:00 PM CDT Appointment [facility] VASCULAR US [address] [place] [phone] Hannah Goodman MD 1201 [facility] DIV OF CARDIOLOGY [address]L [place] [address] 12/06/2024 10:40 AM CDT Office Visit [facility] - Endocrinology 12[address] [facility], [place] [phone] Marbin Flores MD [address] [facility] DIV OF [place] [address] Niraj Turner MD [address] [facility] 2L [place] [address] documented as of this encounter Visit Diagnoses Not on filedocumented in this encounter Care Teams Computer Engineering Professor Relationship Specialty Start Date End Date Jeff Strickland MD [address] [place] [address] PCP - General 03/05/18 [place] [address] [place] [address] [place] [address] Orthopedic Surgery 03/28/17 documented as of this encounter
--- OUTSIDE RECORDS SUMMARY | 2024-10-01 00:58 | XMS_ITS | Clinical Summary ---
Author Organization [facility] Address [address] [place] [address] Phone Care Team Providers Care Education Paraprofessional Name Role Phone Jeff Strickland MD Primary Care Provider [phone] Allergies No known active allergies Medications pantoprazole [...] tablet Take 112 mcg by mouth daily sod farmer. Active aspirin (ANGELLA) 325 mg tablet Take 325 mg by mouth daily. Active Vit C-Vit Z-Cakuwh-OnHw-L utein (PRESERVISION) 226 mg-200 unit -5 mg-0.8 [...] Comments Blood Pressure 167/77 02/04/2019 9:16 AM CHRISTIAN MINISTRIES PROFESSOR Pulse 64 02/04/2019 9:16 AM CHRISTIAN MINISTRIES PROFESSOR Temperature 36.5 C (97.7 F) 02/04/2019 9:16 AM CHRISTIAN MINISTRIES PROFESSOR Respiratory Rate 16 02/04/2019 9:16 AM CHRISTIAN MINISTRIES PROFESSOR Oxygen Saturation 97% 02/04/2019 9:16 AM CHRISTIAN MINISTRIES PROFESSOR Inhaled Oxygen Concentration - - Weight 113.4 kg (250 lb) 02/04/2019 9:16 AM CHRISTIAN MINISTRIES PROFESSOR Height 175.3 cm (5' 9) 02/04/2019 9:16 AM CHRISTIAN MINISTRIES PROFESSOR Body Mass Index 36.92 02/04/2019 9:16 AM CHRISTIAN MINISTRIES PROFESSOR Plan of Treatment Health Maintenance Due Date [...] 50+ YEA RS (2 of 2 - PPSV23, PCV20, or PCV21) 10/04/2020 08/09/2020, 08/09/2020 , 02/09/2020, Additional history exists DIABETES ANNUAL FOOT EXAM 10/18/2022 10/18/2021 COVID-19 Vaccine (4 - 2023-2 5 season) 2023 05/05/2020, 04/20/2020, 03/20/2020 INFLUENZA VACCINE (#1) 2024 , 01/17/2020, 01/17/2020, Additional history exists DIABETES HBA1C Q 6 MONTHS 12/16/20242024, 04/23/2024, 04/10/2024, Additional history exists DIABETES ANNUAL RETINAL EXAM 03/09/2025, 12/10/2023, 10/08/2023 DTAP/TDAP/TD VACCINES (3 - T d or Tdap) 04/10/2026 04/10/2016, 04/09/2016 Insurance BCBS BLUE ACCESS/TRUE BLUE PPO AET[employer] MEDICARE SUPPLEMENT PPO [facility] BLUE ACCESS/TRUE BLUE PPO Care Teams Education Paraprofessional Relationship Specialty Start Date End Date Jeff Strickland MD [address] [facility] [address] [place] [address] PCP - General Family Practice 01/01/19
--- OUTSIDE RECORDS SUMMARY | 2024-10-01 00:58 | XMS_ITS | Encounter Summary ---
Author Organization [facility] Address [facility] [place] [address] Care Team Providers Care Supervisor Type Disk Quality Control Name Role Phone Deandre Bojorquez MD Unavailable [phone] Jeff Strickland MD Primary Care Provider [phone] Encounter Details Date Type Department Care Team (Late st Contact Info) Description 11/21/2023 Lab Requisition [facility] MAIN LAB [address] [place] [phone] Alan Davenport MD [facility]1 [facility] OF [place] [address] Social History Tobacco Use Types Packs/Day Years Used Date Smoking Tobacco: Never Smokeless Tobacco: Never Alcohol Use Standard Drinks/Week Comments Not Currently 0 (1 standard drink = 0.6 oz pur e alcohol) socially in past Sex and Gender Information Value Date Recorded Sex Assigned at Male 07/02/2021 2:37 PM CDT Legal Sex Male 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 Gender Identity Male 07/02/2021 2:37 PM CDT [...] Description 10/04/2024 11:40 AM CDT Office Visit [facility] - Cardiology [address] [facility] [address] [place] [address] Hannah Goodman MD [facility]1 [facility] DIV OF CARDIOLOGY [address] [place] [address] 10/05/2024 11:30 AM CDT Appointment [facility] VASCULAR US [address] [place] [address] Guy Messina MD [address] [place] [address] 2L DIV OF [facility] [place] [address] 10/05/2024 1:45 PM CDT Office Visit [facility] - Vascular Surgery [address] [facility], [facility] [place] [address] Guy Messina MD [facility]5 [facility] 2L DIV OF [facility] [place] [address] Elroy Holcomb MD [address] 2L [place] [address] 10/13/2024 1:00 PM CDT Office Visit [facility] - Cardiology [address], [place] [address] [place] [address] Maylin Cutler DO [address] [facility] [address] [place] [address] 10/15/2024 3:00 PM CDT Appointment [facility] VASCULAR US [address] [place] [address] Hannah Goodman MD [address] [facility] DIV OF CARDIOLOGY [address] [place] [address] 12/06/2024 10:40 AM CDT Office Visit [facility] - Endocrinology [address] [facility], [place] [address] Marbin Flores MD [address] [facility] [address] DIV OF [place] [address] Niraj Turner MD [address] [place] 2L [place] [address] documented as of this encounter Procedures Procedure Name Priority Date/Time Associated Diagnosis Comments HOLD HLA SPECIMEN Routine 11/18/2023 12: 16 PM CDT documented in this encounter Results * HOLD HLA SPECIMEN (11/18/2023 12:16 PM CDT) Hold HLA Specimen 11/21/2023 1:31 PM CDT [facility] ([facility]) Comment:The Hold HLA specime n has been received into the lab and will be held for 5 years at 4 degrees. Blood BLOOD SPECIMEN / Unknown 11/18/2023 12:16 PM CDT 11/21/2023 12:17 PM CDT Alan Davenport MD LAB - BLOOD BANK ORDERABLES F inal Result [facility] ([facility]) [address] [place] [address], [facility] documented in this encounter Visit Diagnoses Not on filedocumented in this encounter Additional Health Concerns Infection Onset Date Last Indicated Resolved Time COVID-19 Under Investigation 09/13/2024 09/13/2024 09/13/2024 6:36 AM CDT documented as of this encounter Care Teams Supervisor Type Disk Quality Control Relationship Specialty Start Date End Date Jeff Strickland MD [address] [place] [address] PCP - General 03/05/18 [place] [address] [facility] [address] [place] [address] Orthopedic Surgery 03/28/17 documented as of this encounter
--- OUTSIDE RECORDS SUMMARY | 2024-10-01 00:58 | XMS_ITS | Encounter Summary ---
Author Organization [facility] Address [facility] [place] [address] Care Team Providers Care Payment Collector Name Role Phone Deandre Bojorquez MD Unavailable [phone] Jeff Strickland MD Primary Care Provider [phone] Encounter Details Date Type Department Care Team (Late st Contact Info) Description 02/04/2024 Lab Requisition [facility] MAIN LAB [address] [place] [phone] Alna Davenport MD [facility]1 [facility] OF [place]BD [place] [address] Social History Tobacco Use Types Packs/Day Years Used Date Smoking Tobacco: Never Smokeless Tobacco: Never Alcohol Use Standard Drinks/Week Comments Not Currently 0 (1 standard drink = 0.6 oz pur e alcohol) socially in past Sex and Gender Information Value Date Recorded Sex Assigned at Male 07/02/2021 2:37 PM CDT 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 - Cardiology [address] [facility] [address] [place] [address] Hannah Goodman MD [facility]1 [facility] DIV OF CARDIOLOGY [address] [place] [address] 10/05/2024 11:30 AM CDT Appointment [facility] VASCULAR US [address] [place] [address] Guy Messina MD [address] [place] [address] 2L DIV OF [facility] [place] [address] 10/05/2024 1:45 PM CDT Office Visit [facility] - Vascular Surgery [address] [facility], [facility] [place] [address] Guy Messina MD [facility] 2L DIV OF [facility] [place] [address] Elroy Holcomb MD [address] 2L [place] [address] 10/13/2024 1:00 PM CDT Office Visit [facility] - Cardiology [address], [place] [address] [place] [address] Maylin Cutler DO [address] [facility] [address] [place] [address] 10/15/2024 3:00 PM CDT Appointment [facility] VASCULAR US [address] [place] [address] Hannah Goodman MD [address] [facility] DIV OF CARDIOLOGY [address] [place] [address] 12/06/2024 10:40 AM CDT Office Visit [facility] - Endocrinology [address] [facility], [place] [address] Marbin Flores MD [address] [facility] [address] DIV OF [place] [address] Niraj Turner MD [address] [facility] 2L [place] [address] documented as of this encounter Procedures Procedure Name Priority Date/Time Associated Diagnosis Comments HOLD HLA SPECIMEN Routine 01/27/2024 3:2 3 PM GROUNDMAN documented in this encounter Results * HOLD HLA SPECIMEN (01/27/2024 3:23 PM GROUNDMAN) Hold HLA Specimen 02/04/2024 4:31 PM GROUNDMAN [facility] (NORTH) Comment:The Hold HLA specime n has been received into the lab and will be held for 5 years at 4 degrees. Blood BLOOD SPECIMEN / Unknown 01/27/2024 3:23 PM GROUNDMAN 02/04/2024 3:23 PM GROUNDMAN us Alan Davenport MD LAB - BLOOD BANK ORDERABLES F inal Result [facility] [address] [place] [address], [facility] documented in this encounter Visit Diagnoses Not on filedocumented in this encounter Additional Health Concerns Infection Onset Date Last Indicated Resolved Time COVID-19 Under Investigation 09/13/2024 09/13/2024 09/13/2024 6:36 AM CDT documented as of this encounter Care Teams Payment Collector Relationship Specialty Start Date End Date Jeff Strickland MD [address] [place] [address] PCP - General 03/05/18 [place] [address] [place] [address] Orthopedic Surgery 03/28/17 documented as of this encounter
--- OUTSIDE RECORDS SUMMARY | 2024-10-01 00:58 | XMS_ITS | Encounter Summary ---
Author Organization [facility] Address [address] [place] [address] Care Team Providers Care Sand Temperer Name Role Phone Deandre Bojorquez MD Unavailable [phone] Jeff Strickland MD Primary Care Provider [phone] Encounter Details Date Type Department Care Team (Late st Contact Info) Description 09/10/2024 Telephone [facility] - Centralized Scheduling [facility]1 [place] [address] Niraj Turner MD [facility] [place] [address] Social History Tobacco Use Types Packs/Day Years Used Date Smoking Tobacco: Never Smokeless Tobacco: Never Alcohol Use Standard Drinks/Week Comments Not Currently 0 (1 standard drink = 0.6 oz pur e alcohol) socially in past AUDIT-C Answer Date Recorded Q1: How often do you have a drink containing alcohol? Never 09/13/2024 Q2: How many drinks containi ng alcohol do you have on a typical day when you are drinking? Patient does not drink Q3: How often do you have si x or more drinks on one occasion? Never 09/13/2024 Overall Financial Resource Strain (CARDIA) Answe r Date Recorded How hard is it for you to pa y for the very basics like food, housing, medical care, and heating? Not hard at all 09/14/2024 [facility] of Occupat [facility] - Occupational Stress Questionnaire Answer Date Recorded Do you feel stress - tense, restless, nervous, or anxious, or unable to sleep at night because your mind is troubled all the time - these days? Not at all 09/14/2024 Hunger Vital Sign Answer Date Recorded Within the past 12 months, y ou worried that your food would run out before you got the money to buy more. Never true 09/15/19 25 Within the past 12 months, t he food you bought just didn't last and you didn't have money to get more. Never true 09/14/2024 PRAPARE - Transportation Answer Date Re corded In the past 12 months, has l ack of transportation kept you from medical appointments or from getting medications? No 08/18 In the past 12 months, has l ack of transportation kept you from meetings, work, or from getting things needed for daily living? No 09/14/2024 Housing Stability Vital Sign Answer Frankie e Recorded In the last 12 months, was t here a time when you were not able to pay the mortgage or rent on time? No 09/14/2024 In the past 12 months, how m any times have you moved where you were living? 0 09/14/2024 At any time in the past 12 m onths, were you homeless or living in a custodial (including now)? 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 Never 09/13/2024 7:52 PM Carey Phillips, RN Q2: How many drinks containing alcohol do you have on a typical day when you are drinking? Patient does not drink 09/13/2024 7:52 PM Carey Phillips, RN Q3: How often do you have six or more drinks on one occasion? Never 09/13/2024 7:52 PM CDT Carey Og, PORSHA * Audit-C Score Answer Date of Assessment Author 0 09/13/2024 7:52 PM CDT Marie Og, PORSHA * Is person deaf or have serious hearing difficulty? Answer Date of Assessment Author No 09/06/2024 1:34 PM CDT Vipin Camarena RN * Is person blind or have serious difficulty seeing? Answer Date of Assessment Author No 09/06/2024 1:34 PM CDT Vipin Camarena RN * Does person have serious difficulty walking/climbing stairs? Answer Date of Assessment Author Yes 09/06/2024 1:34 PM CDT Vipin Camarena RN * Does person have difficulty dressing/bathing? Answer Date of Assessment Author No 09/06/2024 1:34 PM CDT Vipin Camarena RN * Does person have difficulty doing errands alone? Answer Date of Assessment Author Yes 09/06/2024 1:34 PM ELIANAT Vipin Camarena RN documented as of this encounter Mental Status * Does person have difficulty concentrating/remembering/making decisions? Answer Entry Date Author No 09/06/2024 1:34 PM ELIANAT Vipin Camarena RN documented in this encounter Plan of Treatment Upcoming Encounters Date Type Department Care Team (Late st Contact Info) Description 10/04/2024 11:40 AM CDT Office Visit [facility] Physician Group - Cardiology [address] [facility] [address] [place] [address] Hannah Goodman MD [address] [facility] DIV OF CARDIOLOGY 2L [place] [address] 10/05/2024 11:30 AM CDT Appointment [facility] US [address] [place] [address] Guy Messina MD 1225 [facility] 2L DIV OF GEN [place] [address] 10/05/2024 1:45 PM CDT Office Visit [facility] Physician Group - Vascular Surgery 1225 [facility], [place] [address] Guy Messina MD 12[address] [facility] 2L DIV OF GEN [place] [address] Elroy Holcomb MD [address] [facility] 2L DIV [place] [address] 10/13/2024 1:00 PM CDT Office Visit [facility] Group - Cardiology [address] [facility], [place] [address] [place] [address] Maylin Cutler, [address] [facility] [address] [place] [address] 10/15/2024 3:00 PM CDT Appointment [facility] VASCULAR US [address] [place] [address] Hannah Goodman MD [address] [facility] DIV OF CARDIOLOGY [address] [place] [address] 12/06/2024 10:40 AM CDT Office Visit [facility]ician Group - Endocrinology 1225 [facility], [place] [address] Marbin Flores MD [address] [facility] DIV OF ABD TR[place] [address] Niraj Turner MD 1225 [facility] 2L [place] [address] documented as of this encounter Visit Diagnoses Not on filedocumented in this encounter Additional Health Concerns Infection Onset Date Last Indicated Resolved Time COVID-19 Under Investigation 09/13/2024 09/13/2024 09/13/2024 6:36 AM CDT documented as of this encounter Care Teams Sand Temperer Relationship Specialty Start Date End Date Jeff Strickland MD [address] [place] [address] PCP - General 03/05/18 [place] [address] [address] [place] [address] Orthopedic Surgery 03/28/17 documented as of this encounter
--- OUTSIDE RECORDS SUMMARY | 2024-10-01 00:58 | XMS_ITS ---
Author Organization [facility] Address [address] [place] [address] [place] [address] Care Team Providers Care Aluminum Polisher Name Role Phone DONNIE WOOD MD Primary Care Provider Robba Sergio Trujillo Unavailable [phone] REASON FOR VISIT BILAT SHOULDER JOINT INJECTION (NEED XRAY - BEING DONE AT [facility]) MEDICATIONS Medication SIG (Take, Route, Frequency, [...] Location Date Provider Diagnosis [facility] [address] [place] [address] 03/08/2024 Sergio Rivera Primary osteoarthritis, unspecified shoulder [...] discharged home in good condition with a lifter/driver. X-ray time: 6 seconds Progress Notes * [...] patient's typical axial low back pain. John's, [place]'s and Gaenslen's are positive bilaterally. There is [...] and Follow-up: Follow-up Plan documen wendy:: Yes [facility] Quality 2020: [facility] Documented:: Compliant
--- OUTSIDE RECORDS SUMMARY | 2024-10-01 00:58 | XMS_ITS ---
Author Organization [facility] Address [address] [place] [address] [place] [address] Care Team Providers Care Vice President Business & Corporate Development Name Role Phone DONNIE WOOD MD Primary Care Provider Lance Sergio Trujillo Unavailable [phone] ALLERGIES No Known Allergies REASON FOR VISIT [...] retired. He p reviously worked as a [employer] worker. 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 He denies tobacco, alcohol, or illicit drug abuse PROBLEMS Problem Type ICD Code Onset Dates Problem Status W/U Status Risk SNOMED Code Notes Problem Primary osteoarthritis, 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) Active confirmed Localized, primary osteoarthritis of the shoulder region (482856154) VITAL SIGNS Blood pressure systolic 112 mm Hg 03/03/19 25 Blood pressure diastolic 62 mm Hg 025 Heart Rate 59 /min 03/03/2024 Respiratory Rate 18 /min 03/03/2024 Height 5 ft 9 in in 03/03/2024 Weight 229 lbs 03/03/2024 BMI 33.81 kg/m2 03/03/2024 Encounters Encounter Location Date Provider Diagnosis [facility] [address] [facility] [place] [address] 03/03/2024 Sergio Stynowick Pain in left knee [...] patient's typical axial low back pain. John's, [place]'s and Gaenslen's are positive bilaterally. There is [...]
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
--- OUTSIDE RECORDS SUMMARY | 2024-10-01 00:58 | XMS_ITS | Encounter Summary ---
Author Organization [facility] Address [facility] [place] [address] Care Team Providers Care Telephone Clerks Supervisor Name Role Phone Deandre Bojorquez MD Unavailable [phone] Jeff Strickland MD Primary Care Provider [phone] Encounter Details Date Type Department Care Team (Late st Contact Info) Description 04/29/2024 Lab Requisition [facility] MAIN LAB [address] [place] [phone] Alan Davenport MD [facility]1 [facility] [place] [address] Social History Tobacco Use Types Packs/Day Years Used Date Smoking Tobacco: Never Smokeless Tobacco: Never Alcohol Use Standard Drinks/Week Comments Not Currently 0 (1 standard drink = 0.6 oz pur e alcohol) socially in past Sex and Gender Information Value Date Recorded Sex Assigned at Male 07/02/2021 2:37 PM CDT 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 Gender Identity Male 07/02/2021 2:37 PM CDT [...] Description 10/04/2024 11:40 AM CDT Office Visit [facility] - Cardiology [address] [facility] [address] [place] [address] Hannah Goodman MD [facility]1 [facility] DIV OF CARDIOLOGY [address] [place] [address] 10/05/2024 11:30 AM CDT Appointment [facility] VASCULAR US [address] [place] [address] Guy Messina MD [address] [place] [address] 2L DIV OF [facility] [place] [address] 10/05/2024 1:45 PM CDT Office Visit [facility] - Vascular Surgery [address] [facility], [facility] [place] [address] Guy Messina MD [facility]5 [facility] 2L DIV OF [facility] [place] [address] Elroy Holcomb MD [address] [place] [address] 10/13/2024 1:00 PM CDT Office Visit [facility] - Cardiology [address] [place] [address] [place] [address] Maylin Cutler DO [address] [facility] [place] [address] 10/15/2024 3:00 PM CDT Appointment [facility] VASCULAR US [address] [place] [address] Hannah Goodman MD [address] [facility] DIV OF CARDIOLOGY [address] [place] [address] 12/06/2024 10:40 AM CDT Office Visit [facility] - Endocrinology [address] [facility], [place] [phone] Marbin Flores MD [address] DIV [place] [address] Niraj Turner MD [address] [facility] [address]L [place] [address] documented as of this encounter Procedures Procedure Name Priority Date/Time Associated Diagnosis Comments HOLD HLA SPECIMEN Routine 04/27/2024 1:4 8 PM CDT documented in this encounter Results * HOLD HLA SPECIMEN (04/27/2024 1:48 PM CDT) Hold HLA Specimen 04/29/2024 3:[address] [facility] Comment:The Hold HLA specime n has been received into the lab and will be held for 5 years at 4 degrees. Blood BLOOD SPECIMEN / Unknown 04/27/2024 1:48 PM CDT 04/29/2024 1:49 PM CDT us Alan Davenport MD LAB - BLOOD BANK ORDERABLES F inal Result [facility] [address] [place] [address], [facility] documented in this encounter Visit Diagnoses Not on filedocumented in this encounter Additional Health Concerns Infection Onset Date Last Indicated Resolved Time COVID-19 Under Investigation 09/13/2024 09/13/2024 09/13/2024 6:36 AM CDT documented as of this encounter Care Teams Telephone Clerks Supervisor Relationship Specialty Start Date End Date eJff Strickland MD [address] [place] [address] PCP - General 03/05/18 [place] [address] [facility] [address] [place] [address] Orthopedic Surgery 03/28/17 documented as of this encounter
--- OUTSIDE RECORDS SUMMARY | 2024-10-01 00:58 | XMS_ITS | Encounter Summary ---
Author Organization [facility] Address [address] [place] [address] Care Team Providers Care Estimation Manager Name Role Phone Deandre Bojorquez MD Unavailable [phone] Jeff Strickland MD Primary Care Provider Encounter Details Date Type Department Care Team (Late st Contact Info) Description 03/12/2024 Lab Requisition [facility] MAIN LAB [address] [place] [phone] Alan Davenport MD 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1 [facility] DIV OF CARDIOLOGY [address] [place] [address] 10/05/2024 11:30 AM CDT Appointment [facility] VASCULAR US [address] [place] [address] Guy Messina MD [address] [place] [address] [address]L DIV OF [facility] [place] [address] 10/05/2024 1:45 PM CDT Office Visit [facility] - Vascular Surgery [address] [facility], [place] [address] Guy Messina MD [facility]5 [facility] 2L DIV OF [facility] [place] [address] Elroy Holcomb MD [address] [place] [address] 10/13/2024 1:00 PM CDT Office Visit [facility] - Cardiology [address] [place] [address] [place] [address] Maylin Cutler DO [address] [facility] [place] [address] 10/15/2024 3:00 PM CDT Appointment [facility] VASCULAR US [address] [place] [address] Hannah Goodman MD [address] [facility] DIV OF CARDIOLOGY [address] [place] [address] 12/06/2024 10:40 AM CDT Office Visit [facility] - Endocrinology [address] [facility], [place] [phone] Marbin Flores MD [address] [facility] [address] DIV [place] [address] Niraj Turner MD [address] [facility] [address]L [place] [address] documented as of this encounter Procedures Procedure Name Priority Date/Time Associated Diagnosis Comments HOLD HLA SPECIMEN Routine 03/05/2024 1:4 0 PM SATURATOR TENDER documented in this encounter Results * HOLD HLA SPECIMEN (03/05/2024 1:40 PM SATURATOR TENDER) Hold HLA Specimen 03/12/2024 3:00 PM SATURATOR TENDER [facility] Comment:The Hold HLA specime n has been received into the lab and will be held for 5 years at 4 degrees. Blood BLOOD SPECIMEN / Unknown 03/05/2024 1:40 PM SATURATOR TENDER 03/12/2024 1:40 PM SATURATOR TENDER us Alan Davenport MD LAB - BLOOD BANK ORDERABLES F inal Result [facility] [address] [place] [address], [facility] documented in this encounter Visit Diagnoses Not on filedocumented in this encounter Additional Health Concerns Infection Onset Date Last Indicated Resolved Time COVID-19 Under Investigation 09/13/2024 09/13/2024 09/13/2024 6:36 AM CDT documented as of this encounter Care Teams Estimation Manager Relationship Specialty Start Date End Date Jeff Strickland MD [address] [place] [address] PCP - General 03/05/18 [place] [address] [place] [address] Orthopedic Surgery 03/28/17 documented as of this encounter
--- OUTSIDE RECORDS SUMMARY | 2024-10-01 00:58 | XMS_ITS | Patient Health Record ---
Author Organization [facility] [employer] Address [address] [place] [address] Care Team Providers Care Rehab/Pre Vocational Counselor Name Role Phone Trenton Hernandez Unavailable [phone] Reason For Referral No Information Medications Medication [...] UNIT)-FOLIC ACID 1 MG TABLET *Reorder from [employer] for eRx and Interaction Alerts* 02/26/2023 Active [...] MCG (0.03 %) NASAL SPRAY *Reorder from [facility] for eRx and Interaction Alerts* [...] Relief 4 % TOPICAL *Pick strength-form from [facility] for eRX* 02/26/2023 Active Amoxicillin-Pot Clavulanate 875-125 MG Oral 02/26/2023 Active Amoxicillin 500 MG Oral 02/26/2023 Active guanFACINE HCl ER 3 MG Oral 02/26/2023 Active Tamsulosin HCl 0.4 MG Oral 02/26/2023 Active SEVELAMER HCL 800 MG TABLET *Reorder from [facility] for eRx and Interaction Alerts* 02/26/2023 Active LEVOTHYROXINE 112 MCG CAPSULE *Reorder from [facility] for eRx and Interaction Alerts* 02/26/2023 Active ULTRA-FINE SHORT PEN NEEDLE 31 gauge x 16 MISCELLANEOUS *Reorder from [facility] for eRx and Interaction Alerts* 02/26/2023 Active Tylenol PM Extra Strength *Pick strength-form from [facility] for eRX* 02/26/2023 Active Mounjaro 5 MG/0.5ML Subcutaneous *Reorder fro [facility] for eRx and Interaction Alerts* 02/26/2023 [...] Date Coverage End Date [employer] [address] [place] [phone] [id number] GRACE INTERIANO Self - patient is the insured Medical (General) History Surgical History Surgery Date(Month/Year) Removal of gallbladder (02780) Cataract surgery (07930) 02/17/2013 Sinus surgery 02/17/2021 Cardiac stent 07/18/2021
--- OUTSIDE RECORDS SUMMARY | 2024-10-01 00:58 | XMS_ITS | Clinical Summary ---
Author Organization Unknown Care Team Providers Care Documentation Liaison Name Role Phone DONNIE WOOD Unavailable Unavailable DANAE PHYSICAL THERAPIST, SIMONA Unavailable Unavailable LAUREN PRINTING EQUIPMENT MECHANIC APPRENTICE, YASSINE Freedman ailable Unavailable GARSIA JOURNEY COUNSELOR, DEBBY Unavaila ble Unavailable CELIA REGISTERED NURSE, VERNELL Unavailable Unavailable ESTEBAN OCCUPATIONAL THERAPIST, MARIO ALBERTO Unavailable Unavailable Payers Payer Name Policy Type Policy Number Effective Date Expira tion Date AETNA MEDICARE ADVANTAGE - EPISODIC Problems Condition Name Condition Details Condition Category Status Onset Date Resolution Date Last Treatment Date Treating Clinician Comments ENCOUNTER FOR ORTHOPEDIC AFTERCARE FOLLOWING SURGICAL AMP Active 7 00:00: 00 ACQUIRED ABSENCE OF LEFT GREAT TOE Active 02-17 00:00: 00 TYPE 2 DIABETES W DIABETIC PERIPHERAL ANGIOPATH W/O GANGRENE Active 02-17 00:00: 00 TYPE 2 DIABETES MELLITUS W DIABETIC CHRONIC KIDNEY DISEASE Active 02-17 00:00: 00 HYP HRT AND CHR KDNY DIS W HRT FAIL AND W STG 5 CHR KDNY/ESRD Active 02-17 00:00: 00 CHRONIC DIASTOLIC (CONGESTIVE) HEART FAILURE Active 02-17 00:00: 00 END STAGE RENAL DISEASE Active 02-17 00:00: 00 ANEMIA IN CHRONIC KIDNEY DISEASE Active 02-17 00:00: 00 DEPENDENCE ON RENAL DIALYSIS Active 02-17 00:00: 00 BENIGN PROSTATIC HYPERPLASIA WITH LOWER URINARY TRACT SYMP Active 02-17 00:00: 00 OTHER RETENTION OF URINE Active 02-17 00:00: 00 OBSTRUCTIVE SLEEP APNEA (ADULT) (PEDIATRIC) Active 02-17 00:00: 00 ATHSCL HEART DISEASE OF [place] CORONARY ARTERY W/O ANG PCTRS Active 02-17 00:00: 00 PURE HYPERCHOLEST EROLEMIA, UNSPECIFIED Active 02-17 00:00: 00 CALCULUS OF KIDNEY Active 02-17 00:00: 00 HYPOTHYROIDI SM, UNSPECIFIED Active 02-17 00:00: 00 GASTRO-ESOPH AGEAL REFLUX DISEASE WITHOUT ESOPHAGITIS Active 02-17 00:00: 00 PERSONAL HISTORY OF OTHER MALIGNANT NEOPLASM OF KIDNEY Active 02-17 00:00: 00 PRESENCE OF CORONARY ANGIOPLASTY IMPLANT AND GRAFT Active 02-17 00:00: 00 PERSONAL HISTORY OF PNEUMONIA (RECURRENT) Active 02-17 00:00: 00 PERIPHERAL VASCULAR ANGIOPLASTY STATUS Active 02-17 00:00: 00 ACQUIRED ABSENCE OF OTHER SPECIFIED PARTS OF DIGESTIVE TRACT Active 02-17 00:00: 00 PRESENCE OF RIGHT ARTIFICIAL KNEE JOINT Active 02-17 00:00: 00 ACQUIRED ABSENCE OF KIDNEY Active 02-17 00:00: 00 DEPENDENCE ON OTHER ENABLING MACHINES AND DEVICES Active 02-17 00:00: 00 HAT STEAMER (CURRENT) USE OF ASPIRIN Active 02-17 00:00: 00 HAT STEAMER (CURRENT) USE OF INSULIN Active 02-17 00:00: 00 HAT STEAMER (CURRENT) USE OF ANTITHROMBOT ICS/ANTIPLAT ELETS Active 02-17 00:00: 00 HORMONE REPLACEMENT THERAPY Active 02-17 00:00: 00 PRESENCE OF UROGENITAL IMPLANTS Active 02-17 00:00: 00 HISTORY OF FALLING Active 02-17 00:00: 00 Allergies, Adverse Reactions, Alerts Allergy Name Allergy Type Status Severity Reaction(s) Onset Date Inactive Date Treating Clinician Comments OXYCODONE Propensity to adverse reactions Active 09-17 11:19: 49 Medications Ordered Medication Name Filled Medication Name Start Date Stop Date Current Medication? Ordering Clinician Indication Dosage Frequency Signature (SIG) Comments Components Aspirin Childrens 81 mg chewable tablet 09-16 00:00: 00 Yes [id number] CIRCULATION 1 tablet ONCE DAILY 1 tablet ONCE DAILY (route: oral) Med Classific ation: Hematolog ical Agents atorvastati n 80 mg tablet 09-16 00:00: 00 Yes [id number] HIGH CHOLESTEROL 1 tablet ONCE DAILY 1 tablet ONCE DAILY (route: oral) Med Classific ation: Cardiovas cular Therapy Agents Basaglar KwikPen U-100 Insulin 100 unit/mL (3 mL) [facility] 09-16 00:00: 00 Yes [id number] DIABETES Per instruc tions TWICE DAILY Per instructio ns TWICE DAILY (route: subcutaneo us) Med Classific ation: Endocrine carvedilol 25 mg tablet 09-16 00:00: 00 Yes [id number] HIGH BLOOD PRESSURE 1 tablet TWICE DAILY 1 tablet TWICE DAILY (route: oral) Med Classific ation: Cardiovas cular Therapy Agents clonidine 0.2 mg/24 hr weekly transdermal patch 09-16 00:00: 00 Yes [id number] HIGH BLOOD PRESSURE 1 patch, transde rmal weekly WEEKLY 1 patch, transderma l weekly WEEKLY (route: transderma l) Med Classific ation: Cardiovas cular Therapy Agents clopidogrel 75 mg tablet 09-16 00:00: 00 Yes [id number] PREVENT BLOOD CLOTS 1 tablet ONCE DAILY 1 tablet ONCE DAILY (route: oral) Med Classific ation: Hematolog ical Agents DIALYVITE 800 with Iron 29 mg-800 mcg tablet 09-16 00:00: 00 Yes [id number] DIALYSIS VITAMIN 1 tablet ONCE DAILY 1 tablet ONCE DAILY (route: oral) Med Classific ation: Electroly te Balance-N utritiona l Products furosemide 80 mg tablet 09-16 00:00: 00 Yes [id number] FLUID RETENTION 1 tablet TWICE DAILY 1 tablet TWICE DAILY (route: oral) Med Classific ation: Cardiovas cular Therapy Agents gabapentin 300 mg capsule 09-16 00:00: 00 Yes [id number] NEUROPATHY ES FEET 1 capsule 3 TIMES DAILY 1 capsule 3 TIMES DAILY (route: oral) Med Classific ation: Central Nervous System Agents Humalog KwikPen (U-100) Insulin 100 unit/[facility] 09[facility]16 00:00: 00 Yes [id number] DIABETES Per instruc tions 4 TIMES DAILY Per instructio ns 4 TIMES DAILY (route: subcutaneo us) Med Classific ation: Endocrine hydrocodone 5 mg-acetamin ophen 325 mg tablet 09-16 00:00: 00 Yes [id number] LEFT FOOT PAIN 1 tablet EVERY 4 HOURS 1 tablet EVERY 4 HOURS (route: oral) Med Classific ation: Analgesic , Anti-infl ammatory or Antipyret ic lanthanum 1,000 mg chewable tablet 09-16 00:00: 00 Yes [id number] PHOSPHORUS BINDER 1 tablet 3 TIMES DAILY 1 tablet 3 TIMES DAILY (route: oral) Med Classific ation: Genitouri nary Therapy levothyroxi ne 112 mcg capsule 09-16 00:00: 00 Yes [id number] HYPOTHYROID ISM 1 capsule ONCE DAILY 1 capsule ONCE DAILY (route: oral) Med Classific ation: Endocrine lisinopril 20 mg tablet 09-16 00:00: 00 Yes [id number] HIGH BLOOD PRESSURE 1 tablet TWICE DAILY 1 tablet TWICE DAILY (route: oral) Med Classific ation: Cardiovas cular Therapy Agents lorazepam 0.5 mg tablet 09-16 00:00: 00 Yes [id number] ANXIETY 1 tablet AT BEDTIME 1 tablet AT BEDTIME (route: oral) Med Classific ation: Central Nervous System Agents midodrine 2.5 mg tablet 09-16 00:00: 00 Yes [id number] BP LESS THAN 90/50 1 tablet 3 TIMES DAILY 1 tablet 3 TIMES DAILY (route: oral) Med Classific ation: Cardiovas cular Therapy Agents nifedipine ER 30 mg tablet,exte nded release 09-16 00:00: 00 Yes [id number] HEART RATE CONTROL 1 tablet ONCE DAILY 1 tablet ONCE DAILY (route: oral) Med Classific ation: Cardiovas cular Therapy Agents pantoprazol e 40 mg tablet,hortencia yed release 09-16 00:00: 00 Yes [id number] ACID DELIVERY LEAD 1 tablet TWICE DAILY 1 tablet TWICE DAILY (route: oral) Med Classific ation: Gastroint estinal Therapy Agents PreserVisio n AREDS 2 Plus Multivit 200 mcg-15 mcg-5 mg-1 mg capsule 09-16 00:00: 00 Yes [id number] EYE HEALTH 1 capsule TWICE DAILY 1 capsule TWICE DAILY (route: oral) Med Classific ation: Electroly te Balance-N utritiona l Products tamsulosin 0.4 mg capsule 09-16 00:00: 00 Yes [id number] URINE RETENTION 1 capsule AT BEDTIME 1 capsule AT BEDTIME (route: oral) Med Classific ation: Genitouri nary Therapy Vitamin D3 125 mcg (5,000 unit) tablet 09-16 00:00: 00 Yes [id number] LOW VITAMIN D 1 tablet ONCE DAILY 1 tablet ONCE DAILY (route: oral) Med Classific ation: Electroly te Balance-N utritiona l Products Immunizations Ordered Immunization Name Filled Immunization Name Date Status Comments Refusal Reason COVID-19 MONOVALENT, MRNA 2023-12-11 00:00:00 INFLUENZA, TIV (INACTIVATED) 2023-12-10 00:00:00 PNEUMOCOCCAL (PPV), PPV 2022-02-01 00:00:00 Vital Signs Vital Name Observation Time Observation Value Commen ts Temperature 2024-09-27 14:19:00.000 97.4 [degF] Temperature 2024-09-20 16:35:00.000 97.8 [degF] Temperature 2024-09-20 12:06:00.000 97.8 [degF] Temperature 2024-09-18 11:46:00.000 97.2 [degF] BMI (%) 2024-09-27 14:19:00.000 38 kg/m2 BMI (%) 2024-09-18 11:46:00.000 38 kg/m2 Height 2024-09-27 14:19:00.000 68 [in_us] Height 2024-09-18 11:46:00.000 68 [in_us] Pulse 2024-09-27 14:19:00.000 62 /min Pulse 2024-09-20 16:35:00.000 62 /min Pulse 2024-09-20 12:06:00.000 62 /min Pulse 2024-09-18 11:46:00.000 62 /min O2 Saturation (%) 2024-09-27 14:19:00.000 98 % O2 Saturation (%) 2024-09-20 16:35:00.000 98 % O2 Saturation (%) 2024-09-20 12:06:00.000 98 % O2 Saturation (%) 2024-09-18 11:46:00.000 97 % Respirations 2024-09-27 14:19:00.000 18 /min Respirations 2024-09-20 16:35:00.000 18 /min Respirations 2024-09-20 12:06:00.000 18 /min Respirations 2024-09-18 11:46:00.000 17 /min Weight (lbs) 2024-09-27 14:19:00.000 252 [lb_av] Weight (lbs) 2024-09-18 11:46:00.000 253 [lb_av] Systolic Blood Pressure 2024-09-27 14:19:00.000 164 mm [Hg] Systolic Blood Pressure 2024-09-20 16:35:00.000 162 mm [Hg] Systolic Blood Pressure 2024-09-20 12:06:00.000 162 mm [Hg] Systolic Blood Pressure 2024-09-18 11:46:00.000 112 mm [Hg] Diastolic Blood Pressure 2024-09-27 14:19:00.000 82 mm [Hg] Diastolic Blood Pressure 2024-09-20 16:35:00.000 66 mm [Hg] Diastolic Blood Pressure 2024-09-20 12:06:00.000 66 mm [Hg] Diastolic Blood Pressure 2024-09-18 11:46:00.000 50 mm [Hg] Plan of Treatment Planned Activity Planned Date Details Comments Future Scheduled Test SKILLED NU RSE/THERAPY TO ADMINISTER AND INSTRUCT PATIENT/CAREGIVER ON WOUND CARE TO LEFT GREAT TOE AMPUTATION INCISION PER CLEAN/ASEPTIC TECHNIQUE. REMOVE OLD DRESSING. CLEANSE WITH NORMAL SALINE OR WOUND CLEANSER OR SOAP AND WATER. PAT DRY WITH GAUZE OR ALLOW TO AIR DRY. APPLY SALINE MOISTENED GAUZE TO WOUND BED, COVER WITH DRY GAUZE, WRAP WITH KERLIX, AND SECURE WITH SHELIA WRAP. SUTURES TO BE REMOVED BY MD IN OFFICE AT POST-OP APT ON 10/05 WOUND CARE TO BE PERFORMED EVERY DAY AND PRN FOR SOILAGE OR DISLODGEMENT. DISCONTINUE WOUND CARE, ASSESSMENT, AND SUPPLIES WHEN WOUND HEALS. PATIENT/CAREGIVER TO PERFORM WOUND CARE IN AGENCY ABSENCE AFTER APPROPRIATE RETURN DEMONSTRATION. SKILLED NURSE MAY ADD TWO PRN VISITS FOR ASSESSMENT AND MANAGEMENT OF WOUND OR DRESSING COMPLICATIONS. [code = SKILLED NURSE/THERAPY TO ADMINISTER AND INSTRUCT PATIENT/CAREGIVER ON WOUND CARE TO LEFT GREAT TOE AMPUTATION INCISION PER CLEAN/ASEPTIC TECHNIQUE. REMOVE OLD DRESSING. CLEANSE WITH NORMAL SALINE OR WOUND CLEANSER OR SOAP AND WATER. PAT DRY WITH GAUZE OR ALLOW TO AIR DRY. APPLY SALINE MOISTENED GAUZE TO WOUND BED, COVER WITH DRY GAUZE, WRAP WITH KERLIX, AND SECURE WITH SHELIA WRAP. SUTURES TO BE REMOVED BY MD IN OFFICE AT POST-OP APT ON 10/05 WOUND CARE TO BE PERFORMED EVERY DAY AND PRN FOR SOILAGE OR DISLODGEMENT. DISCONTINUE WOUND CARE, ASSESSMENT, AND SUPPLIES WHEN WOUND HEALS. PATIENT/CAREGIVER TO PERFORM WOUND CARE IN AGENCY ABSENCE AFTER APPROPRIATE RETURN DEMONSTRATION. SKILLED NURSE MAY ADD TWO PRN VISITS FOR ASSESSMENT AND MANAGEMENT OF WOUND OR DRESSING COMPLICATIONS.] Future Scheduled Test HOME HEALT H NURSE WILL INSTRUCT THE PATIENT/CAREGIVER ABOUT TAKING TEMPERATURES DAILY, USE OF A SYMPTOM LOG, ADHERING TO USE OF BREASTFEEDING PROGRAM COORDINATOR SOCK AND PROSTHETIC, PROSTHETIC CARE MANAGEMENT, RESIDUAL LIMB SKIN CARE, AND PHANTOM LIMB PAIN MANAGEMENT. [code = HOME HEALTH NURSE WILL INSTRUCT THE PATIENT/CAREGIVER ABOUT TAKING TEMPERATURES DAILY, USE OF A SYMPTOM LOG, ADHERING TO USE OF BREASTFEEDING PROGRAM COORDINATOR SOCK AND PROSTHETIC, PROSTHETIC CARE MANAGEMENT, RESIDUAL LIMB SKIN CARE, AND PHANTOM LIMB PAIN MANAGEMENT. ] Future Scheduled Test HOME HEALT H NURSE WILL INSTRUCT PATIENT/CAREGIVER ON TYPE 2 DIABETES DISEASE PROCESS, HOW TO CREATE A DIABETIC TOOLKIT TO MANAGE INVENTORY OF SUPPLIES, HOW TO PLAN FOR A SICK-DAY, AND WARNING SIGNS WHEN THE PATIENT EXPERIENCES LOW BLOOD SUGAR. [code = HOME HEALTH NURSE WILL INSTRUCT PATIENT/CAREGIVER ON TYPE 2 DIABETES DISEASE PROCESS, HOW TO CREATE A DIABETIC TOOLKIT TO MANAGE INVENTORY OF SUPPLIES, HOW TO PLAN FOR A SICK-DAY, AND WARNING SIGNS WHEN THE PATIENT EXPERIENCES LOW BLOOD SUGAR.] Future Scheduled Test SKILLED NU RSE TO INSTRUCT ON REASON FOR DIALYSIS AND WHEN TO REPORT COMPLICATIONS TO THEIR MEDICAL PROVIDER. [code = SKILLED NURSE TO INSTRUCT ON REASON FOR DIALYSIS AND WHEN TO REPORT COMPLICATIONS TO THEIR MEDICAL PROVIDER.] Future Scheduled Test HOME HEALT H NURSE WILL ASSESS FOR COMPLICATIONS RELATED TO ANTICOAGULATION ANTIPLATELET USE AND INSTRUCT PATIENT/CAREGIVER ABOUT PRECAUTIONS TO FOLLOW AND SIGNS/SYMPTOMS TO REPORT. [code = HOME HEALTH NURSE WILL ASSESS FOR COMPLICATIONS RELATED TO ANTICOAGULATION ANTIPLATELET USE AND INSTRUCT PATIENT/CAREGIVER ABOUT PRECAUTIONS TO FOLLOW AND SIGNS/SYMPTOMS TO REPORT. ] Future Scheduled Test PHYSICAL T HERAPIST TO EVALUATE AND TREAT [code = PHYSICAL THERAPIST TO EVALUATE AND TREAT] Future Scheduled Test OCCUPATION AL THERAPIST TO EVALUATE AND TREAT [code = OCCUPATIONAL THERAPIST TO EVALUATE AND TREAT] Future Scheduled Test EACH ORDER ED IN-HOME OR TELEHEALTH VISIT, THE SKILLED NURSE WILL CONDUCT A COMPREHENSIVE ASSESSMENT INCLUDING VITAL SIGNS, PAIN, SAFETY, MENTAL/COGNITIVE/PSYCHOSOCIAL STATUS, MED MANAGEMENT, NUTRITION, SKIN INTEGRITY, PRESSURE ULCER PREVENTION, AND PATIENT/CAREGIVER ABILITY TO SUPPORT ORDERED CARE. SKILLED NURSE WILL INSTRUCT ON DISEASE PROCESS, MED MGMT., FALL PREVENTION AND SAFETY, INFECTION CONTROL AND PREVENTION, WARNING SIGNS, ADDRESS RESULTS OUTSIDE OF ORDERED PARAMETERS LISTED ON CARE PLAN, AND COORDINATE DISCHARGE WITH THE TREATING PROVIDER. MAY ACCEPT ORDERS FROM THE FOLLOWING PROVIDER(S) WHO WILL BE CONSULTING ON THE CERTIFIED CARE PLAN: DR. DONNIE WOOD, DR. ADRIANA LUGO, DR. OSCAR ROBERTSON, AND ANYONE COVERING IN THEIR ABSENCE. [code = EACH ORDERED IN-HOME OR TELEHEALTH VISIT, THE SKILLED NURSE WILL CONDUCT A COMPREHENSIVE ASSESSMENT INCLUDING VITAL SIGNS, PAIN, SAFETY, MENTAL/COGNITIVE/PSYCHOSOCIAL STATUS, MED MANAGEMENT, NUTRITION, SKIN INTEGRITY, PRESSURE ULCER PREVENTION, AND PATIENT/CAREGIVER ABILITY TO SUPPORT ORDERED CARE. SKILLED NURSE WILL INSTRUCT ON DISEASE PROCESS, MED MGMT., FALL PREVENTION AND SAFETY, INFECTION CONTROL AND PREVENTION, WARNING SIGNS, ADDRESS RESULTS OUTSIDE OF ORDERED PARAMETERS LISTED ON CARE PLAN, AND COORDINATE DISCHARGE WITH THE TREATING PROVIDER. MAY ACCEPT ORDERS FROM THE FOLLOWING PROVIDER(S) WHO WILL BE CONSULTING ON THE CERTIFIED CARE PLAN: DR. DONNIE WOOD, DR. ADRIANA LUGO, DR. OSCAR ROBERTSON, AND ANYONE COVERING IN THEIR ABSENCE. ] Future Scheduled Test [facility] TIFYING PHYSICIAN, ASSOCIATED PHYSICIAN, NPP OR PA WITHIN THE SAME GROUP MAY APPROVE AND SIGN THE ORDER (ON ANY PAGE) ATTESTING THAT THE COMPREHENSIVE OUTCOME ASSESSMENTS, EVALUATIONS, AND HOME HEALTH CERTIFICATION PLANS SUPPORT HOMEBOUND STATUS. HOME HEALTH WEB-PORTAL DOCUMENTATION ACCESSED BY THE PHYSICIAN MUST BE INCORPORATED INTO THE MEDICAL RECORD TO CORROBORATE THE PHYSICIAN, NPP, OR PAS F2F ENCOUNTER TO SUPPORT ELIGIBILITY FOR HOME HEALTH SERVICES. [code = THE CERTIFYING PHYSICIAN, ASSOCIATED PHYSICIAN, NPP OR PA WITHIN THE SAME GROUP MAY APPROVE AND SIGN THE ORDER (ON ANY PAGE) ATTESTING THAT THE COMPREHENSIVE OUTCOME ASSESSMENTS, EVALUATIONS, AND HOME HEALTH CERTIFICATION PLANS SUPPORT HOMEBOUND STATUS. HOME HEALTH WEB-PORTAL DOCUMENTATION ACCESSED BY THE PHYSICIAN MUST BE INCORPORATED INTO THE MEDICAL RECORD TO CORROBORATE THE PHYSICIAN, NPP, OR PAS F2F ENCOUNTER TO SUPPORT ELIGIBILITY FOR HOME HEALTH SERVICES.] Goal 2024-09-27 Patient Goal - S OC 09/18/24: TO GET STRONGER. TO HEAL WOUND AND REMAIN FREE FROM FALLS AND HOSPITALIZATIONS Goal Patient Goal - S OC 09/18/24: TO GET STRONGER. TO HEAL WOUND AND REMAIN FREE FROM FALLS AND HOSPITALIZATIONS HEATHER- 09/27/24- GET STRONGE, STAY OUT OF HOSPITAL, AND HEAL WOUND. Goal Provider Goal - PATIENT/CAREGIVER WILL DEMONSTRATE APPROPRIATE INCISIONAL CARE. INCISION / SUTURE LINE IMPROVE EVIDENCED BY DECREASE IN SIZE / DRAINAGE OF WOUND, NO SIGNS AND SYMPTOMS OF INFECTION, DECREASED PAIN, HEALING IS PROGRESSING BY EOE. Goal Provider Goal - PATIENT WILL DEMONSTRATE ADHERENCE TO RESIDUAL LIMB CARE MANAGEMENT, USE OF SYMPTOM LOGS, AND UNDERSTANDS WHEN TO CALL THE PHYSICIAN UPON DISCONTINUANCE OF HOME HEALTH SERVICES. Goal Provider Goal - PATIENT/CAREGIVER WILL VERBALIZE UNDERSTANDING OF TYPE 2 DIABETES AND THE IMPORTANCE OF MANAGING THE BLOOD SUGAR WITHIN THE EXPECTED RANGE. PATIENT/CAREGIVER WILL ESTABLISH A DIABETIC TOOLKIT AND A SICK-DAY PLAN TO PREPARE FOR POTENTIAL CHANGES WITH BLOOD SUGARS RANGES. PATIENT/CAREGIVER WILL VERBALIZE WARNING SIGNS OF LOW BLOOD SUGAR AND WHAT ACTIONS TO TAKE. Goal Provider Goal - PATIENT/CAREGIVER WILL INDEPENDENTLY DEMONSTRATE STRATEGIES IDENTIFY OF EXACERBATION. PATIENT/CAREGIVER WILL BE ABLE TO IDENTIFY SIGNS AND SYMPTOMS OF DEHYDRATION AND ELECTROLYTE IMBALANCE. Goal Provider Goal - PATIENT/CAREGIVER WILL VERBALIZE UNDERSTANDING OF ANTICOAGULATION ANTIPLATELET COMPLICATIONS TO REPORT AND PRECAUTIONS TO FOLLOW BY END OF HOME HEALTH SERVICES. Goal Provider Goal - Goal Provider Goal - Goal Provider Goal - PATIENT WILL BE FREE OF FALLS AND HOSPITALIZATIONS THROUGHOUT EPISODE OF CARE. PATIENT/CAREGIVER WILL UNDERSTAND AND ADHERE TO ORDERED DIET. PATIENT/CAREGIVER WILL INDEPENDENTLY MANAGE MEDICATIONS, UNDERSTAND ANY CHANGES, SIDE EFFECTS TO REPORT BY EOE. PATIENT WILL BE FREE OF INFECTION AND UNDERSTAND MEASURES OF PREVENTION. PATIENT/CAREGIVER WILL COLLABORATE WITH SKILLED NURSE TO DEVELOP POC AT SOC AND ON AN ONGOING BASIS UPDATES ARE NEEDED. UNDERSTAND PROGRESS MADE/DISCHARGE PLANNING. ADDITIONAL ORDERS WILL BE RECEIVED FROM ALTERNATE PHYSICIANS IN A TIMELY MANNER. Goal Provider Goal - A PLAN OF CARE WILL BE ESTABLISHED THAT MEETS ALL PATIENT'S SHELTER NEEDS AND COUNTER SIGNED BY PHYSICIAN. Progress Notes Progress Notes <paragraph>[Visit Date: 2024 by VERNELL YANG REGISTERED NURSE]:</paragraph><paragraph>HEATHER VISIT COMPLETED AFTER HOSPITAL STAY FOR FALL. PATIENT DISCHARGED WITH ORDERS TO CONTINUE HH SERVICES. UPON ARRIVAL, PATIENT SITTING IN RECLINER. APPEAR IN NO ACUTE DISTRESS. IN AGREEMENT TO CONTINUE HH SERVICES. VSS EXCEPT HIGH BP. REPORTED TO PCP OFFICE WITH NO NEW ORDERS. REPORTS REGULAR BOWEL HABITS. PATIENT WAS DISCHARGED WITH [facility] CATH IN PLACE DUE TO RETENTION. PATIENT TO GO BACK FOR FOLLOW UP TO EVALUATE NEED TO KEEP OR REMOVE [facility] CATH. PATIENT DOES DIALYSIS DAILY AT HOME. DENIES PAIN. LUNG SOUNDS CLEAR. DENIES COUGH/SOB WITH REST/CHEST PAIN. REPORTS THAT APPETITE HASN'T BEEN GOOD LATELY. REPORTS WEAKNESS AND DROWSINESS. WOUND CARE PROVIDED ORDERED. PATIENT TOLERATED WELL. EDUCATION PROVIDED ON [facility] CARE, INFECTION CONTROL, FALL PRECAUTIONS, CARDIAC PRECAUTIONS, BLEEDING PRECAUTIONS, AGENCY BOOKLET, AND S/S TO REPORT. PATIENT VERBALIZED UNDERSTANDING. DENIES ANY OTHER QUESTIONS/CONCERNS. UPON NURSE DEPARTURE, PATIENT STABLE.</paragraph> Encounters Start Date/Time End Date/Time Encounter Type Admission Type Attending [facility] Care Department Encounter ID Discharge Date Discharge Status Discharge Condition Discharge Reason Percent Goals Met 2024-09-18 00:00:00 2024-11-16 00:00:00 Outpatient [facility]LL [facility] [id number] 50.00
--- OUTSIDE RECORDS SUMMARY | 2024-10-01 00:58 | XMS_ITS ---
Author Organization [facility] Address Formerly [facility] [place] [address] Care Team Providers Care White Lead Filterer Name Role Phone Jeff Strickland MD Primary Care Provider Chan Nicholas MD Unavailable [phone] Alan Mccall MD Unavailable [phone] Pepito Haro MD PhD Unavailable Solange Guido MD Unavailable [phone] Active Problems Problem Noted Date Diagnosed Date [...] damage Assessment & Plan (03/09/2024 6:25 PM OIL WELL SERVICES FIELD SUPERVISOR): Vision OD trends mild improvement, though [...] discussed that genetic results would not pattern changer. Given we have exhausted available treatment [...] 03/26/2021 Assessment & Plan (03/26/2021 1:17 PM OIL WELL SERVICES FIELD SUPERVISOR): Enlarged mild sella turcica on a [...] units Assessment & Plan (03/26/2021 1:17 PM OIL WELL SERVICES FIELD SUPERVISOR): Chronic, uncontrolled, improving A1c today 7.7 [...] WNL Assessment & Plan (03/26/2021 1:16 PM OIL WELL SERVICES FIELD SUPERVISOR): Pt currently on Levothyroxine 112 mcg [...] 11/18/2018 Assessment & Plan (01/21/2019 2:02 PM OIL WELL SERVICES FIELD SUPERVISOR): Symptomatic. Will request for esophageal manometry. [...] well Assessment & Plan (03/26/2021 1:16 PM OIL WELL SERVICES FIELD SUPERVISOR): On statin therapy Tolerating well Last [...] nephrectomy. 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 [id number] Current Treatment and Therapy Plans No current [...] were not included. Kendall Carl 1955 Referring Study Coordinator: Alan Mccall Dialysis Info: NOD GFR 13 Type: Time: (Not currently on dialysis) days Blood Type: O NEG Body mass index is 37.36 kg/m . ALERTS Sleeping Room Cleaner: needs to establish Past Medical History: Diagnosis Date Arthropathy RA. Dr Strickland manages. CHF (congestive heart failure) 2 yrs ago Peoplesoft Developer is Dr. Becerra in [place]. CKD (chronic kidney disease), stage V Community acquired pneumonia 2018 [facility] hospitalized. Diabetes mellitus 20 years. Lantus pen. Esophageal reflux takes med Hypercholesteremia 5-10 yrs meds Hypertension takes meds Hypothyroidism meds 20 years Kidney stones 5-6 years ago had 2 in the same year. Malignancy right kidney 2012 Obstructive sleep apnea 3 years. [facility]. [place] remember doctors name Renal cell [...] file Gets together: Not on file Attends mu-ism service: Not on file Active member of [...] support system and appropriate discharge plan. Plan: community outreach worker to provide supportive services as needed. Patient appears to be a reasonable candidate for transplant from a psychosocial perspective. -Post transplant arrangement forms are needed prior to being listed. -Updated toxicology results needed, per protocol Psychiatric Consult Recommended: No Transplant Well Reactivator Operator: Joy Tam LCSW RD: 11/09/2019 BMI= [...] my fitness pal or my food head men's golf coach) - Consume no more than 2000 calories a day E-mailed pt's a 2000 calorie, CKD meal plan. Items Still Pending: Clinic, colonoscopy Acute pain of left shoulder 01/25/2019 03/25/2023 Non-cardiac chest pain 11/18/201803/25 Assessment & Plan (01/21/2019 2:02 PM OIL WELL SERVICES FIELD SUPERVISOR): The pain is persistent. The patient [...] has had extensive cardiac workup by the nursing clinical director including coronary angiogram. He has chest pain [...]
--- OUTSIDE RECORDS SUMMARY | 2024-10-01 00:58 | XMS_ITS | Continuity of Care Document ---
Author Organization [facility] Address [address] [facility] [address] [place] [address] Phone Care Team Providers Care Machining Associate Name Role Phone Olu Payan Unavailable Unavailable [...] Providers Copied on Encounter [facility], [place], [place], [id number], tel:[phone] [place] No Information [address] [place] [address], [address], [place], [place], [facility], . tel: [phone] [address] [place] [address], [place], [place], [id number], tel:[phone] [place] No Information 4 Genoveva Mcdonald. . Referring Provider: Jeff Strickland [address] [place] [address] [address], [place], [place], [facility]. tel:[phone] [place] [address], [place], [place], [id number], tel:[phone] [place] No Information 4 Gladis Olu. [address] [place] [address], [address], [place], [facility], . tel: [phone] Referring Provider: Yanira Chin [facility] [address], [place], [place], [facility]. tel:[phone] [place] [address], [place], [place], [id number], tel:[phone] [place] No Information 4 Gladis Raines. [address] [place] [address], [address], [place], [facility], . tel: [phone] Referring Provider: Yanira Chin [facility] [address], [place], [address]. tel:[phone], [id number], tel:[phone] [place] No Information 4 Jacinto Fairchild. . Referring Provider: Yanira Chin [facility] [address], [place], [address]. tel:[phone] [address], [place], [place], [id number], [place] tel:[phone] [place] No Information 4 Jacinto Fairchild. . Referring Provider: Jeff Strickland [address] [place] [address] [address], [place], [place], [facility]. tel:[phone], [id number], tel:[phone] [place] No Information 4 Genoveva Mcdonald. . Referring Provider: Jeff Strickland [address] [place] [address] [address], [place], [place], [facility]. tel:[phone], [id number], tel:[phone] [place] No Information 4 Gladis Raines. [address] [facility], [address], [place], [facility], . tel: [phone] Referring Provider: Jeff Strickland [address] [place] [address] [address], [place], [place], [facility]. tel:[phone], [id number], tel:[phone] [place] No Information 0 4 Genoveva Mcdonald. . Referring Provider: Jeff Strickland [address] [place] [address] [address], [place], [place], [facility]. tel:[phone], [place], [id number], [place] tel:[phone] [place] No Information 0 4 Gladis Raines. [address] [facility], [address], [place], [facility], . tel: [phone] Referring Provider: Jeff Strickland [address] [place] [address] [address], [place], [place], [facility]. tel:[phone] Family History Family Member Type Diagnosis Age At Onset No Information Payers Payer name Insurance type Covered democrat ID Diego suarez(ernseto Hadley [id number] Social History Type Description Quantity Date Captured [...]
--- OUTSIDE RECORDS SUMMARY | 2024-10-01 00:58 | XMS_ITS ---
Author Organization [facility] Address [address] [place] [address] Care Team Providers Care Molder Sweep Name Role Phone Jeff Strickland MD Primary Care Provider Chan Nicholas MD Unavailable [phone] Alan Mccall MD Unavailable [phone] Pepito Haro MD PhD Unavailable Solange Guido [...] Routine 07/25/2024 11:30 AM CDT POCT GLUCOSE [id number] Routine 07/23/2024 1: 26 PM CDT Type [...] ruled out EGFR Routine 04/13/2024 5:06 AM LPN HEMOGLOBIN A1C STAT 04/10/2024 11:41 PM LPN LIPID PANEL STAT 04/10/2024 11:41 PM LPN from Last 3 Months or Most Recently [...] 300 + = 14 units Active FA-vit Wwrkv-T-tvfc-vitamin D3 (Dialyvite 800-Ultra D) 0.8-2,000 mg-unit tablet [...] total) by mouth 06/04/19 25 Active vitamins A,C,Q-aegn-szzege (PreserVision AREDS) 4,296 mcg-226 mg-90 mg capsule [...] damage Assessment & Plan (03/09/2024 6:25 PM LPN): Vision OD trends mild improvement, though still [...] weeks and have patient return to [facility] retina in 4 weeks [...] 03/26/2021 Assessment & Plan (03/26/2021 1:17 PM LPN): Enlarged mild sella turcica on a routine [...] units Assessment & Plan (03/26/2021 1:17 PM LPN): Chronic, uncontrolled, improving A1c today 7.7 % [...] WNL Assessment & Plan (03/26/2021 1:16 PM LPN): Pt currently on Levothyroxine 112 mcg oral [...] 11/18/2018 Assessment & Plan (01/21/2019 2:02 PM LPN): Symptomatic. Will request for esophageal manometry. Continue [...] well Assessment & Plan (03/26/2021 1:16 PM LPN): On statin therapy Tolerating well Last lipid [...] nephrectomy. 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 [id number] Immunizations Immunization Administration Dates Next Due Hep [...] = 0.6 oz pur e alcohol) rarely [facility] Utilities Answer Date Recorded In the past 12 months has th e [employer], gas, oil, or water [employer] threatened to shut off services in your [...] often do you attend chur ch or religion services? Never 03/25/2023 Do you belong to [...] on file Legal Sex Male 2:23 AM LPN Gender Identity Not on file Sexual Orientation [...] CDT Respiratory Rate 16 04/13/2024 8:33 AM LPN Oxygen Saturation 98% 04/13/2024 8:33 AM LPN Inhaled Oxygen Concentration - - Weight 122.3 [...] OS: non-specific paracentral changes Cinthia Chung MD [facility] VISUAL FIEL D Final Result * (ABNORMAL) eGFR (04/13/2024 5:06 AM LPN) Pathologist [facility] eGFR 5(L) >=60 [...] last reviewed 2020. Blood 04/13/2024 5:06 AM LPN 04/13/2024 5:31 AM LPN Saul Engle MD LAB BLOOD ORDERABLES Final Resul t Performing Organization Address [facility] de Phone Number [facility] [address] * (ABNORMAL) Hemoglobin A1c (04/10/2024 11:41 PM LPN) Hgb A1C 7.0(H) 4.0 - 5.6 % Estimated Average Glucose 154 mg/dL [facility] Comment: The ADA recommends reporting an estimated Average Glucose (eAG) with all Hemoglobin A1c results using the equation derived from a study of 507 normal and diabetic adults. Minority populations were underrepresented and children were not included. (Diabetes Care 2020; 43(S1): S66-S76). The eAG is not equivalent to a fasting glucose. Blood 04/10/2024 11:4 1 PM LPN 04/10/2024 11:57 PM LPN Saul Engle MD LAB BLOOD ORDERABLES Final Resul t Performing Organization Address [facility] Co de Phone Number [facility] [place] [address] * (ABNORMAL) Lipid panel (04/10/2024 11:41 PM LPN) Cholesterol 145 30 - 199 mg/dL Comment: [...] on 2017. Triglycerides 453(H) <=149 mg/dL [facility] Comment: Interpretive Data Ages < [...] revised on 2017. HDL 22(L) >=40 mg/dL [facility] Comment: Interpretive Data Ages < [...] calculated See Comment <=129 [facility] Comment: Unable to calculate LDL [...] [facility] Blood 04/10/2024 11:4 1 PM LPN 04/10/2024 11:55 PM LPN Nicole Boo MD LAB BLOOD ORDERABLES Final Result [facility] Department [place] [address] from Last 3 Months or Most Recently Relevant to Health Maintenance
--- OUTSIDE RECORDS SUMMARY | 2024-10-01 00:59 | XMS_ITS | Encounter Summary ---
Author Organization [facility] Address [address] [place] [address] Care Team Providers Care A/C Tech Name Role Phone Jeff Strickland MD Primary Care Provider Chan Nicholas MD Unavailable [phone] Alan Mccall MD Unavailable [phone] Pepito Haro MD PhD Unavailable [phone] Solange Guido MD Unavailable [phone] Encounter Details Date Type Department Care Team (Late st Contact Info) Description 07/26/[address] [facility] Health Information Management [address] [place] [address] Scanning, Provider Social History Tobacco Use Types Packs/Day Years Used Date Smoking Tobacco: Never Smokeless Tobacco: Never Alcohol Use Standard Drinks/Week Comments Yes 0 (1 standard drink = 0.6 oz pur e alcohol) rarely [facility] Utilities Answer Date Recorded In the past 12 months has [employer], gas, oil, or water company threatened [...] often do you attend chur ch or faith services? 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 Gender Identity Not on file Sexual Orientation Not on file Occupation Industry Job Start Date Job End Date Retired Not on file Not on file Not on file documented as of this encounter Plan of Treatment Not on file documented as of this encounter Procedures Procedure Name Priority Date/Time Associated Diagnosis Comments CARDIOLOGY DOCUMENT SCAN 07/26/2024 documented in this encounter Results * Cardiology Document Scan (07/26/2024) Anatomical Region Laterality Modality Other us Provider Scanning CV CARDIAC SERVICES PROCEDURES Final Result documented in this encounter Visit Diagnoses Not on filedocumented in this encounter Care Teams A/C Tech Relationship Specialty Start Date End Date Jeff Strickland MD [address] [place] [address] [address] PCP - General Family Medicine 04/02/18 Chan Nicholas MD [facility] STATE [address] [address] Consulting Physician Gastroenterology 11/24/18 Alan Mccall MD [address] [place] [address] [address] Referring Physician Nephrology 11/24/18 Pepito Haro MD PhD [facility] [address] [id number] Consulting Physician Neurosurgery 12/03/22 Solange Guido MD [address] [facility] [address] [place] [address] Referring Physician Cardiovascular Disease 07/23/23 documented as of this encounter
--- OUTSIDE RECORDS SUMMARY | 2024-10-01 00:59 | XMS_ITS | Clinical Summary ---
Author Organization [facility] Address [address], [place] [address] Phone Care Team Providers Care Email Marketer Name Role Phone Jeff Strickland MD Primary Care Provider [phone] Allergies No known active allergies Medications levothyroxine (SYNTHROID, LEVOTHROID) 112 MCG tablet 1 daily 0 8 Active insulin lispro (HUMALOG DEVYN KWIKPEN) 100 UNIT/ML injection as dir 0 8 Active cholecalciferol (VITAMIN D-3) 2000 units capsule 1 daily 0 8 Active Multiple Vitamins-Mineral s (MULTIVITAMIN ADULT) tablet 1 daily 0 8 Active insulin glargine (LANTUS SOLOSTAR) 100 UNIT/ML injection as dir 0 8 Active TRULICITY 0.75 MG/0.5ML solution pen-injector 2 9 Active omeprazole (PriLOSEC) [address] capsule TK ONE C PO BID 9 Active minoxidil (LONITEN) 2.5 MG tablet Take 1 tablet (2.5 mg total) by mouth 2 (two) times a day 60 tablet 11 0 Active aspirin (Sami Low Dose) 81 MG chewable tablet daily Acti ve furosemide (LASIX) 40 MG tablet Take 40 mg by mouth 2 (two) times a day Active hydrALAZINE (APRESOLINE) 25 MG tablet Take 1 tablet (25 mg total) by mouth 3 (three) times a day 90 tablet 11 0 Active B-D UF III MINI PEN NEEDLES 31G X 5 MM misc INJECT FIVE TIMES DAILY UTD 0 Active metOLazone (ZAROXOLYN) 5 MG tablet Take 1 tablet (5 mg total) by mouth 2 (two) times a week 24 tablet 3 0 Active Continuous Blood Gluc Behavioral Pediatrician (FreeStyle Em [place]) device 1 each daily 0 Active Continuous Blood Gluc Sensor (FreeStyle Em Sensor System) misc 1 each once every 2 weeks 0 Active Lancets (OneTouch Delica Plus [id number]) misc OneTouch Delica Plus Lancet 33 gauge Active atorvastatin (LIPITOR) 80 MG tablet TK 1 T PO QD 0 Active carvedilol (COREG) 6.25 MG tablet Take 12.5 mg by mouth 2 times daily Active sodium bicarbonate 650 MG tablet TAKE 1 TABLET(650 MG) BY MOUTH TWICE DAILY 180 tablet 3 2 Active Active Problems Problem Noted Date Diagnosed Date Patient encounter status 11/10/2019 Overview (12/17/2019): Kendall Carl 1955 Referring Foreclosure Specialist: Alan Mccall Dialysis Info: NOD GFR 13 Type: Time: (Not currently on dialysis) days Blood Type: O NEG Body mass index is 37.36 kg/m . ALERTS Childcare Teacher: needs to establish Past Medical History: Diagnosis Date Arthropathy RA. Dr Strickland manages. 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 Becerra in [place]. CKD (chronic kidney disease), stage V Community acquired pneumonia 2018 [facility] hospitalized. Diabetes mellitus 20 years. Lantus pen. Esophageal reflux takes med Hypercholesteremia 5-10 yrs meds Hypertension takes meds Hypothyroidism meds 20 years Kidney stones 5-6 years ago had 2 in the same year. Malignancy right kidney 2012 Obstructive sleep apnea 3 years. [facility]. Angela remember doctors name Renal cell [...] file Gets together: Not on file Attends hinduism service: Not on file Active member of [...] Impression: It is the impression of this long term care social worker that Kendall Gillris has several positive factors for Kidney transplant candidacy from a psychosocial perspective. Patient appears to have appropriate knowledge of illness. Patient has sufficient insurance coverage and stable financial situation for post transplant needs. No concerns regarding substance abuse, legal issues, or mental health needs. Patient has adequate support system and appropriate discharge plan. Plan: [place] worker to provide supportive services as needed. Patient appears to be a reasonable candidate for transplant from a psychosocial perspective. -Post transplant arrangement forms are needed prior to being listed. -Updated toxicology results needed, per protocol Psychiatric Consult Recommended: No Transplant Inflatable Buildings Laminator: Joy Tam LCSW RD: 11/09/2019 BMI= 36.2, [...] nephrectomy. 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 [id number] Immunizations Immunization Administration Dates Next Due Influenza (IM) Preservative [...] at Not on file Legal Sex Male 7:22 AM MST Gender Identity Not on file Sexual Orientation [...] 3:10 PM CDT Height 175.3 cm (5' 9) 10/18/2019 3:10 PM CDT Body Mass Index 38.25 10/18/2019 3:10 PM CDT Plan of Treatment Health Maintenance Due Date Last Done Comments Pneumococcal PPSV23/PCV13 65 + Years / Low and Medium Risk (1 of 2 - PCV) 01/19/2006 Influenza Vaccine (#1) 2024 9, 04/10/2016, 04/09/2016 Insurance [employer] PM INTERFACED INSURANCE Care Teams Email Marketer Relationship Specialty Start Date End Date Jeff Strickland MD [address] [facility] [address] [facility] [address] [place] [address] PCP - General Internal Medicine 07/15/18
--- OUTSIDE RECORDS SUMMARY | 2024-10-01 00:59 | XMS_ITS | Encounter Summary ---
Author Organization [facility] Address [facility] [place] [address] Care Team Providers Care It Coordinator Name Role Phone Deandre Bojorquez MD Unavailable [phone] Jeff Strickland MD Primary Care Provider [phone] Encounter Details Date Type Department Care Team (Late st Contact Info) Description 06/25/2024 Lab Requisition [facility] MAIN LAB [address] [place] [id number] Alan Davenport MD [facility] [place] [address] Social History Tobacco Use Types Packs/Day Years Used Date Smoking Tobacco: Never Smokeless Tobacco: Never Alcohol Use Standard Drinks/Week Comments Not Currently 0 (1 standard drink = 0.6 oz pur e alcohol) socially in past Sex and Gender Information Value Date Recorded Sex Assigned at Male 07/02/2021 2:37 PM CDT Legal Sex Male 10:14 PM PAPER BALER Gender Identity Male 07/02/2021 2:37 PM CDT [...] Description 10/04/2024 11:40 AM CDT Office Visit [facility] - Cardiology [address] [facility] [address] [place] [address] Hannah Goodman MD [facility] DIV OF CARDIOLOGY [address] [place] [address] 10/05/2024 11:30 AM CDT Appointment [facility] VASCULAR US [address] [place] [address] Guy Messina MD [address] [place] [address] [address]L DIV OF [facility] [place] [address] 10/05/2024 1:45 PM CDT Office Visit [facility] - Vascular Surgery [address] [facility] [place] [address] Guy Messina MD [facility] 2L DIV OF [facility] [place] [address] Elroy Holcomb MD [address] [place] [address] 2[address] [place] [address] 10/13/2024 1:00 PM CDT Office Visit [facility] - Cardiology [address] [place] [address] [place] [address] Maylin Cutler DO [address] [facility] [address] [place] [address] 10/15/2024 3:00 PM CDT Appointment [facility] VASCULAR US [address] [place] [address] Hannah Goodman MD [address] [facility] DIV OF CARDIOLOGY [address] [place] [address] 12/06/2024 10:40 AM CDT Office Visit [facility] - Endocrinology [address] [facility] [place] [id number] Marbin Flores MD [address] [facility] [address] DIV OF [place] [address] Niraj Turner MD [address] [facility] 2L [place] [address] documented as of this encounter Procedures Procedure Name Priority Date/Time Associated Diagnosis Comments HOLD HLA SPECIMEN Routine 06/22/2024 11: 05 AM CDT documented in this encounter Results * HOLD HLA SPECIMEN (06/22/2024 11:05 AM CDT) Hold HLA Specimen 06/25/2024 12:32 PM CDT [facility] Comment:The Hold HLA specime n has been received into the lab and will be held for 5 years at 4 degrees. Blood BLOOD SPECIMEN / Unknown 06/22/2024 11:05 AM CDT 06/25/2024 11:05 AM CDT Alan Davenport MD LAB - BLOOD BANK ORDERABLES F inal Result [facility] [address] [place] [address], [facility] documented in this encounter Visit Diagnoses Not on filedocumented in this encounter Additional Health Concerns Infection Onset Date Last Indicated Resolved Time COVID-19 Under Investigation 09/13/2024 09/13/2024 09/13/2024 6:36 AM CDT documented as of this encounter Care Teams It Coordinator Relationship Specialty Start Date End Date Jeff Strickland MD [address] [place] [address] PCP - General 03/05/18 [place] [address] [facility] [address] [place] [address] Orthopedic Surgery 03/28/17 documented as of this encounter
--- OUTSIDE RECORDS SUMMARY | 2024-10-01 00:59 | XMS_ITS | Encounter Summary ---
Author Organization [facility] Address [address] [place] [address] Care Team Prov[address] Care Court Assistant Name Role Phone Jeff Strickland MD Primary Care Provider Chan Nicholas MD Unavailable [phone] Alan Mccall MD Unavailable [phone] Pepito Haro MD PhD Unavailable Solange Guido MD Unavailable [phone] Encounter Details Date Type Department Care Team (Late st Contact Info) Description 07/28/2024 Orders Only [facility] Health Information Management [address] [place] [id number] Scanning, Provider Social History Tobacco Use Types Packs/Day Years Used Date Smoking Tobacco: Never Smokeless Tobacco: Never Alcohol Use Standard Drinks/Week Comments Yes 0 (1 standard drink = 0.6 oz pur e alcohol) rarely [facility] Utilities Answer Date Recorded In the past 12 months has [employer] electric, gas, oil, or water company threatened [...] often do you attend chur ch or druze services? Never 03/25/2023 Do you belong to [...] on file Legal Sex Male 2:23 AM [employer] Gender Identity Not on file Sexual Orientation Not on file Occupation Industry Job Start Date Job End Date Retired Not on file Not on file Not on file documented as of this encounter Plan of Treatment Not on file documented as of this encounter Procedures Procedure Name Priority Date/Time Associated Diagnosis Comments SCAN - RADIOLOGY/IMAGING 07/28/2024 9:28 PM CDT documented in this encounter Results * SCAN - RADIOLOGY/IMAGING (07/28/2024 9:28 PM CDT) Anatomical Region Laterality Modality Other us Provider Scanning Final Result documented in this encounter Visit Diagnoses Not on filedocumented in this encounter Care Teams Court Assistant Relationship Specialty Start Date End Date Jeff Strickland MD [facility] [address] [place] [id number] PCP - General Family Medicine 04/02/18 Chan Nicholas MD [facility] [address] [address] Consulting Physician Gastroenterology 11/24/18 Alan Mccall MD [facility] [address] [address] Referring Physician Nephrology 11/24/18 Pepito Haro MD PhD [address] [place] [address] Consulting Physician Neurosurgery 12/03/22 Solange Guido MD [address] [facility] [address] [place] [address] Referring Physician Cardiovascular Disease 07/23/23 documented as of this encounter
--- OUTSIDE RECORDS SUMMARY | 2024-10-01 00:59 | XMS_ITS ---
Author Organization [facility] Address [address] [place] [address] Care Team Providers Care Personal Lines Account Executive Name Role Phone Deandre Bojorquez MD Unavailable [phone] Jeff Strickland MD Primary Care Provider Transplant Episode Kidney Candidate [facility] ([place], [place]) - [facility] Center waitlisted on 05/06/2022 Marked as Inactive on 12/19/2022 Reason: Temporarily too Sick Kidney CoordinatorSavanna Edwards RN Phone: N/A Fax: N/A Email: N/A Scores Score Value Updated Exceptions/Reas ons CPRA Not available EPTS (Calc) 96 10/01/2024 [place] Organ Diagnosis Organ Primary Contributory Kidney Diabetes Mellitus - Type II Hype rtensive Nephrosclerosis Care Team Name Role Phone Fax Email Savanna Edwards RN Kidney Coordinator N/A N/A N/A Alan Mccall MD Referring Physician [phone] N/A Anjali Mott LMSW Industrial Education Teacher N/A N/A N/A Millie Lindquist Car Sales Associate N/A N/A N/A Events Pre-Transplant Referred: 12/05/2021 Evaluation began: 12/13/2021 Committee: 05/02/2022 UNOS qualified: 01/17/2020 Center waitlisted: 05/06/2022 Dialysis History Dialysis History Start End Type Comments Center 01/17/2020 Peritoneal [facility] Information Center Phone Fax Address [facility] [phone] [address] [place] [id number]
--- OUTSIDE RECORDS SUMMARY | 2024-10-01 00:59 | XMS_ITS | Clinical Summary ---
Author Organization Unknown Care Team Providers Care Instructor Apparel Manufacture Name Role Phone DONNIE WOOD Unavailable Unavailable DANAE PHYSICAL THERAPIST, SIMONA Unavailable Unavailable LAUREN DIE ASSEMBLER, YASSINE Freedman ailable Unavailable GARSIA JOURNEY COUNSELOR, [...] 02-17 00:00: 00 ATHSCL HEART DISEASE OF [place] CORONARY ARTERY W/O ANG PCTRS Active 02-17 [...] MACHINES AND DEVICES Active 02-17 00:00: 00 DIETARY MANAGER (CURRENT) USE OF ASPIRIN Active 02-17 00:00: 00 DIETARY MANAGER (CURRENT) USE OF INSULIN Active 02-17 00:00: 00 DIETARY MANAGER (CURRENT) USE OF ANTITHROMBOT ICS/ANTIPLAT ELETS Active [...] mg chewable tablet 09-16 00:00: 00 Yes [id number] CIRCULATION 1 tablet ONCE DAILY 1 tablet ONCE DAILY (route: oral) Med Classific ation: Hematolog ical Agents atorvastati n 80 mg tablet 09-16 00:00: 00 Yes [id number] HIGH CHOLESTEROL 1 tablet ONCE DAILY 1 tablet ONCE DAILY (route: oral) Med Classific ation: Cardiovas cular Therapy Agents Basaglar KwikPen U-100 Insulin 100 unit/mL (3 mL) [facility] 00:00: 00 Yes [id number] DIABETES Per instruc tions TWICE DAILY Per instructio ns TWICE DAILY (route: subcutaneo us) Med Classific ation: Endocrine carvedilol 25 mg tablet 09-16 00:00: 00 Yes [id number] HIGH BLOOD PRESSURE 1 tablet TWICE DAILY 1 tablet TWICE DAILY (route: oral) Med Classific ation: Cardiovas cular Therapy Agents clonidine 0.2 mg/24 hr weekly transdermal patch 09-16 00:00: 00 Yes [id number] HIGH BLOOD PRESSURE 1 patch, transde rmal weekly WEEKLY 1 patch, transderma l weekly WEEKLY (route: transderma l) Med Classific ation: Cardiovas cular Therapy Agents clopidogrel 75 mg tablet 09-16 00:00: 00 Yes [id number] PREVENT BLOOD CLOTS 1 tablet ONCE DAILY 1 tablet ONCE DAILY (route: oral) Med Classific ation: Hematolog ical Agents DIALYVITE 800 with Iron 29 mg-800 mcg tablet 09-16 00:00: 00 Yes [id number] DIALYSIS VITAMIN 1 tablet ONCE DAILY 1 tablet ONCE DAILY (route: oral) Med Classific ation: Electroly te Balance-N utritiona l Products furosemide 80 mg tablet 09-16 00:00: 00 Yes [id number] FLUID RETENTION 1 tablet TWICE DAILY 1 tablet TWICE DAILY (route: oral) Med Classific ation: Cardiovas cular Therapy Agents gabapentin 300 mg capsule 09-16 00:00: 00 Yes [id number] NEUROPATHY ES FEET 1 capsule 3 TIMES DAILY 1 capsule 3 TIMES DAILY (route: oral) Med Classific ation: Central Nervous System Agents Humalog KwikPen (U-100) Insulin 100 unit/mL [facility] 09-16 00:00: 00 Yes [id number] DIABETES Per instruc tions 4 TIMES DAILY Per instructio ns 4 TIMES DAILY (route: subcutaneo us) Med Classific ation: Endocrine hydrocodone 5 mg-acetamin ophen 325 mg tablet 09-16 00:00: 00 Yes [id number] LEFT FOOT PAIN 1 tablet EVERY 4 HOURS 1 tablet EVERY 4 HOURS (route: oral) Med Classific ation: Analgesic , Anti-infl ammatory or Antipyret ic lanthanum 1,000 mg chewable tablet 09-16 00:00: 00 Yes [id number] PHOSPHORUS BINDER 1 tablet 3 TIMES DAILY 1 tablet 3 TIMES DAILY (route: oral) Med Classific ation: Genitouri nary Therapy levothyroxi ne 112 mcg capsule 09-16 00:00: 00 Yes [id number] HYPOTHYROID ISM 1 capsule ONCE DAILY 1 capsule ONCE DAILY (route: oral) Med Classific ation: Endocrine lisinopril 20 mg tablet 09-16 00:00: 00 Yes [id number] HIGH BLOOD PRESSURE 1 tablet TWICE DAILY 1 tablet TWICE DAILY (route: oral) Med Classific ation: Cardiovas cular Therapy Agents lorazepam 0.5 mg tablet 09-16 00:00: 00 Yes [id number] ANXIETY 1 tablet AT BEDTIME 1 tablet AT BEDTIME (route: oral) Med Classific ation: Central Nervous System Agents midodrine 2.5 mg tablet 09-16 00:00: 00 Yes [id number] BP LESS THAN 90/50 1 tablet 3 TIMES DAILY 1 tablet 3 TIMES DAILY (route: oral) Med Classific ation: Cardiovas cular Therapy Agents nifedipine ER 30 mg tablet,exte nded release 09-16 00:00: 00 Yes [id number] HEART RATE CONTROL 1 tablet ONCE DAILY 1 tablet ONCE DAILY (route: oral) Med Classific ation: Cardiovas cular Therapy Agents pantoprazol e 40 mg tablet,hortencia yed release 09-16 00:00: 00 Yes [id number] ACID EYEGLASS CUTTER 1 tablet TWICE DAILY 1 tablet TWICE DAILY (route: oral) Med Classific ation: Gastroint estinal Therapy Agents PreserVisio n AREDS 2 Plus Multivit 200 mcg-15 mcg-5 mg-1 mg capsule 09-16 00:00: 00 Yes [id number] EYE HEALTH 1 capsule TWICE DAILY 1 capsule TWICE DAILY (route: oral) Med Classific ation: Electroly te Balance-N utritiona l Products tamsulosin 0.4 mg capsule 09-16 00:00: 00 Yes [id number] URINE RETENTION 1 capsule AT BEDTIME 1 capsule AT BEDTIME (route: oral) Med Classific ation: Genitouri nary Therapy Vitamin D3 125 mcg (5,000 unit) tablet 09-16 00:00: 00 Yes [id number] LOW VITAMIN D 1 tablet ONCE DAILY [...] A SYMPTOM LOG, ADHERING TO USE OF KITCHEN HAND SOCK AND PROSTHETIC, PROSTHETIC CARE MANAGEMENT, RESIDUAL LIMB SKIN CARE, AND PHANTOM LIMB PAIN MANAGEMENT. [code = HOME HEALTH NURSE WILL INSTRUCT THE PATIENT/CAREGIVER ABOUT TAKING TEMPERATURES DAILY, USE OF A SYMPTOM LOG, ADHERING TO USE OF KITCHEN HAND SOCK AND PROSTHETIC, PROSTHETIC CARE MANAGEMENT, RESIDUAL [...] THEIR ABSENCE. ] Future Scheduled Test [facility] TIFYING PHYSICIAN, ASSOCIATED PHYSICIAN, NPP OR [...] WILL BE ESTABLISHED THAT MEETS ALL PATIENT'S INTERMEDIATE NEEDS AND COUNTER SIGNED BY PHYSICIAN. Progress [...] End Date/Time Encounter Type Admission Type Attending [facility] Care Department Encounter ID Discharge Date Discharge Status Discharge Condition Discharge Reason Percent Goals Met 2024-09-18 00:00:00 2024-11-16 00:00:00 Outpatient [facility] [id number]
--- OUTSIDE RECORDS SUMMARY | 2024-10-01 00:59 | XMS_ITS | Clinical Summary ---
Author Organization [facility] [employer] Address [address] [place] [address] Care Team Providers Care Drainlayer Name Role Phone Deandre Bojorquez MD Unavailable [phone] Jeff Strickland MD Primary Care Provider [phone] Source Comments [facility],non-owned Affiliates and Associated Physician Practices is amultiple site organization consisting of ambulatory clinics and hospital sitesin [place], [place], [place] and [place]. This disclosure is being madepursuant to the Care Everywhere program and may not contain all information available regarding this patient. Last updated 17.[facility] Allergies Active Allergy Reactions Criticality Noted [...] touch ultra 150 strip 4 021 Active pantoprazole EC (PROTONIX) 40 MG tablet Take 1 (one) tablet by mouth once daily Active Insulin Lispro (HUMALOG KWIKPEN) 100 UNIT/ML Max 136 units per day 15 Pen 3 021 Active LORazepam (Ativan) 0.5 MG tablet Take 1 (one) tablet by mouth nightly as needed for Anxiety or Insomnia Active carvedilol (Coreg) 25 MG tablet Take 1 (one) tablet by mouth 2 times daily 022 Active furosemide (Lasix) 80 MG tablet Take 2 (two) tablets by mouth 2 times daily 022 Active atorvastatin (Lipitor) 80 MG tabletIndication s:Coronary artery disease involving [place] coronary artery of [place] heart without angina pectoris Take 1 (one) tablet by mouth once daily 90 tablet 3 024 Active B Hrhkbro-Z-Lxmqp Acid (Dialyvite 800) 0.8 MG 1 tablet Orally Once a day for 30 day(s) Active lisinopril (Prinivil; Zestril) 20 MG tabletIndication s:Coronary artery disease involving [place] coronary artery of [place] heart without angina pectoris,Resista nt hypertension Take 1 (one) tablet by mouth 2 times daily 60 tablet 3 025 2025 Active hydrALAZINE (Apresoline) 10 MG tabletIndication s:Resistant hypertension Take 2 (two) tablets by mouth 3 times daily as needed (For SBP greater than 180) 90 tablet 3 025 Active tamsulosin (Flomax) 0.4 MG capsule Take 1 (one) capsule by mouth once daily 025 Active clopidogrel (plaVIX) 75 MG tablet Take 1 (one) tablet by mouth once daily 90 tablet 3 07/22/19 25 4:41 PM CDT 025 Active Aspirin Low Dose 81 MG tabletIndication s:CAD in [place] artery TAKE 1 TABLET BY MOUTH ONCE DAILY 90 tablet 3 025 Active HYDROcodone-acet aminophen ([place]) 5-325 MG tablet Take 1 (one) tablet by mouth every 4 hours as needed pain 025 Active calcium carbonate (Tums) 500 MG chew tablet Take 2 (two) tablets by mouth every 2 hours as needed for Heartburn (chew and swallow) Active sevelamer carbonate (Renvela) 800 MG Take 2 (two) tablets by mouth 3 times daily with meals 540 tablet 3 025 2025 Active NIFEdipine CR 24hr (Adalat CC) 30 MG tablet Take 1 (one) tablet by mouth once daily 90 tablet 3 025 2025 Active cloNIDine (Catapres) 0.3 MG/24HR patch Apply 1 (one) patch to skin every 7 days (once a week) 12 patch 3 025 2025 Active Allenaglar Maya (Basaglar) penIndications:U ncontrolled type 2 diabetes mellitus with hyperglycemia (HCC) Inject 35 (thirty five) Units subcutaneously 2 times daily 252 mL 025 2025 Active polyethylene glycol 3350 (Miralax) 17 g packet Take 17 (seventeen) g by mouth once daily as needed for Constipation 7 packet 025 2024 Active gabapentin (Neurontin) 100 MG capsule Take 1 (one) capsule by mouth 2 times daily for 90 days 180 capsule 025 2024 Active fluticasone propionate (FLONASE) 50 MCG/ACT nasal spray 021 2024 Discontinued(T x Complete) Allenaglhaylee Trejo (BASAGLAR) penIndications:U ncontrolled type 2 diabetes mellitus with hyperglycemia (HCC) Inject 55 (fifty five) Units subcutaneously 2 times daily 30 mL 021 2024 Discontinued loteprednol (LOTEMAX) 0.5 % ophthalmic suspension 022 2024 Discontinued(L ist Clean-Up) cloNIDine (Catapres) 0.2 MG/24HR patch Apply 1 (one) patch to skin every 7 days (once a week) 025 2024 Discontinued(D ose Adjustment) gabapentin (Neurontin) 300 MG capsule Take 1 (one) capsule by mouth 3 times daily 2024 Discontinued(D ose Adjustment) doxycycline hyclate (Vibramycin) 100 MG capsule Take 1 (one) capsule by mouth 2 times daily 025 2024 Discontinued(T x Complete) dilTIAZem ER 12hr 60 MG capsule Take 2 (two) capsules by mouth 2 times daily 2024 Discontinued(D ose Adjustment) doxycycline hyclate (Vibramycin) 100 MG capsule Take 1 (one) capsule by mouth every 12 hours 2024 Discontinued(T x Complete) NIFEdipine CR 24hr (Adalat CC) 60 MG tabletIndication s:Resistant hypertension Take 1 (one) tablet by mouth once daily Take on an empty stomach. 90 tablet 3 025 2024 Discontinued(D ose Adjustment) amoxicillin-clav ulanate (Augmentin) 875-125 MG tablet Take 1 (one) tablet by mouth 2 times daily 025 2024 Discontinued(L ist Clean-Up) gabapentin (Neurontin) 300 MG capsule Take 1 (one) capsule by mouth at bedtime for 90 days 90 capsule 025 2024 Discontinued polyethylene glycol 3350 (Miralax) 17 g packet Take 17 (seventeen) g by mouth once daily as needed for Constipation 7 packet 025 2024 Discontinued sevelamer carbonate (Renvela) 800 MG Take 1 (one) tablet by mouth 3 times daily with meals for 90 days 270 tablet 025 2024 Discontinued(D ose Adjustment) fluconazole (Diflucan) 100 MG tabletIndication s:funal peritonitis ppx Take 1 (one) tablet by mouth once daily for 3 days Reasons: funal peritonitis ppx 3 tablet 025 2024 Discontinued(L ist Clean-Up) amoxicillin (Amoxil) 875 MG tablet Take 1 (one) tablet by mouth 2 times daily for 2 days 4 tablet 025 2024 Discontinued(C linical Decision) doxycycline monohydrate 100 MG capsule Take 1 (one) capsule by mouth every 12 hours for 2 days 4 capsule 025 2024 Discontinued(C linical Decision) NIFEdipine CR osmotic 24hr (Adalat CC) 60 MG tablet Take 1 (one) tablet by mouth once daily for 90 days 90 tablet 025 2024 Discontinued amoxicillin-clav ulanate (Augmentin) 500-125 MG tablet Take 1 (one) tablet by mouth 2 times daily for 2 days 4 tablet 025 2024 Basaglar KwikPen (Basaglar) penIndications:U ncontrolled type 2 diabetes mellitus with hyperglycemia (HCC) Inject 35 (thirty five) Units subcutaneously 2 times daily 40 units AM and 35 units PM 252 mL 025 2024 Discontinued polyethylene glycol 3350 (Miralax) 17 g packet Take 17 (seventeen) g by mouth once daily as needed for Constipation 7 packet 025 2024 Discontinued Basaglar KwikPen (Basaglar) penIndications:U ncontrolled type 2 diabetes mellitus with hyperglycemia (HCC) Inject 35 (thirty five) Units subcutaneously 2 times daily 252 mL 025 2024 Discontinued Active Problems Problem Noted Date Diagnosed Date Hypokalemia (resolved) 09/25/2024 Assessment & Plan (09/25/2024 2:55 PM CDT): -pt on PD outpt -pt missed PD 09/23 due to fall event Plan: -nephro following, s/p PD on -CMP, mg, phos daily -renal vitamins, renvela 1600 mg TID -consider sevelamer but will defer to outpt reel man -avoid nephrotoxic agents, and dose meds renally -replete lytes PRN Urinary retention 09/25/2024 Assessment & Plan (09/25/2024 2:55 PM CDT): -pt with chronic richardson placement, last seen by urology on 09/22/24 Plan: -cont home tamsulosin 0.4 mg daily Fall, initial encounter 09/24/2024 Assessment & Plan (09/25/2024 2:55 PM CDT): - mechanical fall with no LOC and no head trauma - Pt lethargy likely 2/2 to fatigue; received course of zosyn and vanc during 09/12 admission for concern of sepsis and ams Plan: -delirium precautions -PT/OT consulted, family declining placement, recommending commode Assessment & Plan (09/24/2024 6:20 AM CDT): - mechanical fall with no LOC and no head trauma - Pt lethargy likely 2/2 to fatigue; received course of zosyn and vanc in 09/12 admission for concern of sepsis and ams Plan: - delirium precautions, reassess mental status in AM Elevated troponin 09/24/2024 Assessment & Plan (09/25/2024 2:55 PM CDT): -elevation likely 2/2 to fall with baseline ESRD and less likely NSTEMI given pt is asymptomatic without CP and SOB - EKG shows new t-wave inversion in lateral leads and avF -troponin peaked Plan: -no longer trending troponin -monitor for signs of chest pain/angina or ACS Assessment & Plan (09/24/2024 6:20 AM CDT): - elevation likely 2/2 to fall with baseline ESRD and less likely NSTEMI given pt is asymptomatic without CP and SOB - EKG shows new t-wave inversion in lateral leads and avF Plan: - trend troponin q6h to peak (HFpEF) heart failure with preserved ejection fr action 09/24/2024 Assessment & Plan (09/25/2024 2:55 PM CDT): -continue home coreg 25 mg BID, furosemide 160 mg BID, lisinopril 20 mg BID, nifedipine 30 mg daily -continue aspirin 81 mg daily Assessment & Plan (09/24/2024 6:20 AM CDT): {[facility] Quick Recap - Optional:95081:::1} -continue home coreg 25 mg BID, furosemide 160 mg BID, lisinopril 20 mg BID, nifedipine 30 mg daily -continue aspirin 81 mg daily Lethargy 09/24/2024 Assessment & Plan (09/25/2024 2:55 PM CDT): - mechanical fall with no LOC and no head trauma - Pt lethargy likely 2/2 to fatigue; received course of zosyn and vanc during 09/12 admission for concern of sepsis and ams Plan: -delirium precautions -PT/OT consulted, family declining placement, recommending commode Assessment & Plan (09/24/2024 6:20 AM CDT): - mechanical fall with no LOC and no head trauma - Pt lethargy likely 2/2 to fatigue; received course of zosyn and vanc in 09/12 admission for concern of sepsis and ams Plan: - delirium precautions, reassess mental status in AM ESRD (end stage renal disease) 09/24/2024 Assessment & Plan (09/25/2024 2:55 PM CDT): -pt on PD outpt -pt missed PD 09/23 due to fall event Plan: -nephro following, s/p PD on -CMP, mg, phos daily -renal vitamins, renvela 1600 mg TID -consider sevelamer but will defer to outpt reel man -avoid nephrotoxic agents, and dose meds renally -replete lytes PRN Assessment & Plan (09/24/2024 6:20 AM CDT): {[facility] Quick Recap - Optional:49234:::1} - pt missed PD 09/23 due to fall event Plan: - nephro consulted, PD in AM - CMP, mg, phos daily - renal vitamins, renvela 1600 mg TID BPH (benign prostatic hyperplasia) 09/24/2024 Assessment & Plan (09/25/2024 2:55 PM CDT): -pt with chronic richardson placement, last seen by urology on 09/22/24 Plan: -cont home tamsulosin 0.4 mg daily Assessment & Plan (09/24/2024 6:20 AM CDT): - tamsulosin 0.4 mg daily Amputation of left great toe 09/16/2024 Assessment & Plan (09/16/2024 3:13 PM CDT): - worsening dry gangrene though no wet gangrene or signs of infection noted - recent stenting for PAD - aspirin, plavix, statin - vascular surgery consulted, patient underwent left first toe amputation, dressing change on 09/16 POD2 - pathology tissue showing acute osteomyelitis but with negative bone margins Acute osteomyelitis 09/16/2024 Assessment & Plan (09/16/2024 3:13 PM CDT): - worsening dry gangrene though no wet gangrene or signs of infection noted - recent stenting for PAD - aspirin, plavix, statin - vascular surgery consulted, patient underwent left first toe amputation, dressing change on 09/16 POD2 - pathology tissue showing acute osteomyelitis but with negative bone margins Lightheadedness 09/13/2024 Assessment & Plan (09/16/2024 3:13 PM CDT): - lightheadedness and lethargy are possibly due to hypotension from recent addition of nifedipine to home regimen for hypertension. - aspirin 81 mg daily, lipitor 80 mg daily - continue home lasix, lisinopril, clonidine, coreg - nifedipine resumed at 30 mg daily Assessment & Plan (09/15/2024 11:21 AM CDT): - lightheadedness and lethargy are possibly due to hypotension from recent addition of nifedipine to home regimen for hypertension. - aspirin 81 mg daily, lipitor 80 mg daily - continue home lasix, lisinopril, clonidine, coreg Assessment & Plan (09/14/2024 1:14 PM CDT): - lightheadedness and lethargy are possibly due to hypotension from recent addition of nifedipine to home regimen for hypertension. - aspirin 81 mg daily, lipitor 80 mg daily - continue home lasix, lisinopril, clonidine, coreg Assessment & Plan (09/13/2024 3:42 PM CDT): - lightheadedness and lethargy are possibly due to hypotension from recent addition of nifedipine to home regimen for hypertension. - aspirin 81 mg daily, lipitor 80 mg daily - continue home lasix, lisinopril, clonidine, coreg Assessment & Plan (09/13/2024 2:27 PM CDT): -likely in context of anemia and expected to improve with resuscitation -AAT, PT/OT, tele, orthostatic BP TID x3 occurances -follow CT aorta Assessment & Plan (09/13/2024 7:06 AM CDT): -likely in context of anemia and expected to improve with resuscitation -AAT, PT/OT, tele, orthostatic BP TID x3 occurances -follow CT aorta Anemia 09/13/2024 Assessment & Plan (09/25/2024 2:55 PM CDT): -hgb stable on CBC at admission -Anemia of chronic disease 2/2 to ESRD hx Plan: -CTM, transfuse Hgb <7 Assessment & Plan (09/24/2024 6:20 AM CDT): - hgb stable on CBC at admission -Anemia of chronic disease 2/2 to ESRD hx Plan: - CBC daily Assessment & Plan (09/16/2024 1:51 PM CDT): - hemoglobin baseline around 8-9, presented with acute hgb drop to 5.5, got blood transfusion with improvement back to 9 - hemoglobin stable on repeat, likely lab error since patient does not have overt sign of bleeding and his hgb is stable Assessment & Plan (09/15/2024 11:21 AM CDT): - hemoglobin baseline around 8-9, presented with acute hgb drop to 5.5, got blood transfusion with improvement back to 9 - hemoglobin stable on repeat, likely lab error since patient does not have overt sign of bleeding and his hgb is stable Assessment & Plan (09/14/2024 1:14 PM CDT): - hemoglobin baseline around 8-9, presented with acute hgb drop to 5.5, got blood transfusion with improvement back to 9 - hemoglobin stable on repeat, likely lab error since patient does not have overt sign of bleeding and his hgb is stable Assessment & Plan (09/13/2024 3:26 PM CDT): - nephrology consulted for peritoneal dialysis - renal vitamins - hemoglobin baseline around 8-9, presented with acute hgb drop to 5.5, got blood transfusion with improvement back to 9 - hemoglobin stable on repeat, likely lab error since patient does not have overt sign of bleeding and his hgb is stable - continue home lasix, lisinopril, clonidine, coreg Assessment & Plan (09/13/2024 2:27 PM CDT): -likely in context of anemia of chronic disease and CKD as pt missed his last EPO shot. However, follow CTA aorta to rule out any occult abdominal bleed. Pt denies any overt bleeding in urine or stool -monitor HnH q6H and tx for HGB < 7 -continue home vitamins Assessment & Plan (09/13/2024 7:06 AM CDT): -likely in context of anemia of chronic disease and CKD as pt missed his last EPO shot. However, follow CTA aorta to rule out any occult abdominal bleed. Pt denies any overt bleeding in urine or stool -monitor HnH q6H and tx for HGB < 7 -continue home vitamins History of vascular disease 09/13/2024 Assessment & Plan (09/13/2024 3:42 PM CDT): - worsening dry gangrene though no wet gangrene or signs of infection noted - recent stenting for PAD - aspirin, plavix, statin - vascular surgery consulted, possible left toe amputation on 09/14 Abdominal pain, unspecified abdominal location 0 09/13/2024 Left leg pain 09/04/2024 Assessment & Plan (09/07/2024 6:23 PM CDT): - presents with some purlence, increased redness, pain and swelling, concerning for cellulitis of great toe. Does not appear septic fortunately. However, given profound vascular disease and T2DM complications, certainly at high risk for developing ulceration and delayed wound healing - Continue on empiric vanc and zosyn. Deescalate pending clinical reassessment/cultures - Pain control with norco and dilaudid prn -CTA: -showing patent stent - XR LLE: -no osteomyelitis TWYLA studies: -Prelim: non compressible vessel, with no flow in L great toe -Vascular c/s: -no acute intervention at this time -Follow BLE vein mapping reports -Interventional cardiology c/s: -Notified of preliminary TWYLA results - will follow Op with patient and recommend to continue Op f/u with podiatry Assessment & Plan (09/06/2024 6:24 PM CDT): - presents with some purlence, increased redness, pain and swelling, concerning for cellulitis of great toe. Does not appear septic fortunately. However, given profound vascular disease and T2DM complications, certainly at high risk for developing ulceration and delayed wound healing - Continue on empiric vanc and zosyn. Deescalate pending clinical reassessment/cultures - Pain control with norco and dilaudid prn -CTA: -showing patent stent - XR LLE: -no osteomyelitis TWYLA studies: -Prelim: non compressible vessel, with no flow in L great toe -Vascular c/s: -no acute intervention at this time -Follow BLE vein mapping -Interventional cardiology c/s: -Notified of preliminary TWYLA results -Will eval in AM Assessment & Plan (09/05/2024 5:15 PM CDT): - presents with some purlence, increased redness, pain and swelling, concerning for cellulitis of great toe. Does not appear septic fortunately. However, given profound vascular disease and T2DM complications, certainly at high risk for developing ulceration and delayed wound healing - Continue on empiric vanc and zosyn. Deescalate pending clinical reassessment/cultures - Pain control with norco and dilaudid prn -CTA: -showing patent stent -Follow XR, TWYLA studies and venous duplex - consider interventional cardiology involvement Assessment & Plan (09/04/2024 5:24 AM CDT): - presents with some purlence, increased redness, pain and swelling, concerning for cellulitis of great toe. Does not appear septic fortunately. However, given profound vascular disease and T2DM complications, certainly at high risk for developing ulceration and delayed wound healing - CTA ordered. Awaiting read - Continue on empiric vanc and zosyn. Deescalate pending clinical reassessment/cultures - Pain control with norco and dilaudid prn - consider interventional cardiology involvement, pending CTA results, if vessel amenable to PCI Cellulitis of left lower extremity 09/04/2024 Assessment & Plan (09/16/2024 3:13 PM CDT): -started vanc zosyn in context of continued worsening and recent abx failure - no signs of cellulitis of exam - osteomyelitis seen on pathology report but with negative bone margins - antibiotics to be continued for one day post-op, last doses of antibiotics to be given on 09/15 Assessment & Plan (09/15/2024 11:21 AM CDT): -started vanc zosyn in context of continued worsening and recent abx failure - no signs of cellulitis of exam - antibiotics to be continued for one day post-op, last doses of antibiotics to be given on 09/15 Assessment & Plan (09/14/2024 1:14 PM CDT): -started vanc zosyn in context of continued worsening and recent abx failure - no signs of cellulitis of exam - antibiotics to be continued for one day post-op, EOT: 7:30 Assessment & Plan (09/13/2024 2:27 PM CDT): -started vanc zosyn in context of continued worsening and recent abx failure -follow cultures, ESR and CRP -follow aorta run off to assess for distal arterial supply -Consult ortho in AM to assess for need of debridement vs amputation. Assessment & Plan (09/13/2024 7:06 AM CDT): -started vanc zosyn in context of continued worsening and recent abx failure -follow cultures, ESR and CRP -follow aorta run off to assess for distal arterial supply -Consult ortho in AM to assess for need of debridement vs amputation. Assessment & Plan (09/07/2024 6:23 PM CDT): - presents with some purlence, increased redness, pain and swelling, concerning for cellulitis of great toe. Does not appear septic fortunately. However, given profound vascular disease and T2DM complications, certainly at high risk for developing ulceration and delayed wound healing - Continue on empiric vanc and zosyn. Deescalate pending clinical reassessment/cultures - Pain control with norco and dilaudid prn -CTA: -showing patent stent - XR LLE: -no osteomyelitis TWYLA studies: -Prelim: non compressible vessel, with no flow in L great toe -Vascular c/s: -no acute intervention at this time -Follow BLE vein mapping reports -Interventional cardiology c/s: -Notified of preliminary TWYLA results - will follow Op with patient and recommend to continue Op f/u with podiatry Assessment & Plan (09/06/2024 6:24 PM CDT): - presents with some purlence, increased redness, pain and swelling, concerning for cellulitis of great toe. Does not appear septic fortunately. However, given profound vascular disease and T2DM complications, certainly at high risk for developing ulceration and delayed wound healing - Continue on empiric vanc and zosyn. Deescalate pending clinical reassessment/cultures - Pain control with norco and dilaudid prn -CTA: -showing patent stent - XR LLE: -no osteomyelitis TWYLA studies: -Prelim: non compressible vessel, with no flow in L great toe -Vascular c/s: -no acute intervention at this time -Follow BLE vein mapping -Interventional cardiology c/s: -Notified of preliminary TWYLA results -Will eval in AM Assessment & Plan (09/05/2024 5:15 PM CDT): - presents with some purlence, increased redness, pain and swelling, concerning for cellulitis of great toe. Does not appear septic fortunately. However, given profound vascular disease and T2DM complications, certainly at high risk for developing ulceration and delayed wound healing - Continue on empiric vanc and zosyn. Deescalate pending clinical reassessment/cultures - Pain control with norco and dilaudid prn -CTA: -showing patent stent -Follow XR, TWYLA studies and venous duplex - consider interventional cardiology involvement Assessment & Plan (09/04/2024 5:24 AM CDT): - presents with some purlence, increased redness, pain and swelling, concerning for cellulitis of great toe. Does not appear septic fortunately. However, given profound vascular disease and T2DM complications, certainly at high risk for developing ulceration and delayed wound healing - CTA ordered. Awaiting read - Continue on empiric vanc and zosyn. Deescalate pending clinical reassessment/cultures - Pain control with norco and dilaudid prn - consider interventional cardiology involvement, pending CTA results, if vessel amenable to PCI Leg edema, left 09/04/2024 Assessment & Plan (09/13/2024 3:26 PM CDT): - left foot xray ordered - duplex ordered to assess for DVT Assessment & Plan (09/07/2024 6:23 PM CDT): - presents with some purlence, increased redness, pain and swelling, concerning for cellulitis of great toe. Does not appear septic fortunately. However, given profound vascular disease and T2DM complications, certainly at high risk for developing ulceration and delayed wound healing - Continue on empiric vanc and zosyn. Deescalate pending clinical reassessment/cultures - Pain control with norco and dilaudid prn -CTA: -showing patent stent - XR LLE: -no osteomyelitis TWYLA studies: -Prelim: non compressible vessel, with no flow in L great toe -Vascular c/s: -no acute intervention at this time -Follow BLE vein mapping reports -Interventional cardiology c/s: -Notified of preliminary TWYLA results - will follow Op with patient and recommend to continue Op f/u with podiatry Assessment & Plan (09/06/2024 6:24 PM CDT): - presents with some purlence, increased redness, pain and swelling, concerning for cellulitis of great toe. Does not appear septic fortunately. However, given profound vascular disease and T2DM complications, certainly at high risk for developing ulceration and delayed wound healing - Continue on empiric vanc and zosyn. Deescalate pending clinical reassessment/cultures - Pain control with norco and dilaudid prn -CTA: -showing patent stent - XR LLE: -no osteomyelitis TWYLA studies: -Prelim: non compressible vessel, with no flow in L great toe -Vascular c/s: -no acute intervention at this time -Follow BLE vein mapping -Interventional cardiology c/s: -Notified of preliminary TWYLA results -Will eval in AM Assessment & Plan (09/05/2024 5:15 PM CDT): - presents with some purlence, increased redness, pain and swelling, concerning for cellulitis of great toe. Does not appear septic fortunately. However, given profound vascular disease and T2DM complications, certainly at high risk for developing ulceration and delayed wound healing - Continue on empiric vanc and zosyn. Deescalate pending clinical reassessment/cultures - Pain control with norco and dilaudid prn -CTA: -showing patent stent -Follow XR, TWYLA studies and venous duplex - consider interventional cardiology involvement Assessment & Plan (09/04/2024 5:24 AM CDT): - presents with some purlence, increased redness, pain and swelling, concerning for cellulitis of great toe. Does not appear septic fortunately. However, given profound vascular disease and T2DM complications, certainly at high risk for developing ulceration and delayed wound healing - CTA ordered. Awaiting read - Continue on empiric vanc and zosyn. Deescalate pending clinical reassessment/cultures - Pain control with norco and dilaudid prn - consider interventional cardiology involvement, pending CTA results, if vessel amenable to PCI CAD (coronary artery disease) 09/01/2024 Assessment & Plan (09/25/2024 2:55 PM CDT): -continue home coreg 25 mg BID, furosemide 160 mg BID, lisinopril 20 mg BID, nifedipine 30 mg daily -continue aspirin 81 mg daily Assessment & Plan (09/24/2024 6:20 AM CDT): {[facility] Quick Recap - Optional:26713:::1} -continue home coreg 25 mg BID, furosemide 160 mg BID, lisinopril 20 mg BID, nifedipine 30 mg daily -continue aspirin 81 mg daily Assessment & Plan (09/07/2024 6:23 PM CDT): - no chest pain, SOB or CHF exacerbation. Follows with cardiology as OP - Continue on Aspirin 81 mg qd, Lipitor 80 mg qd, Coreg 25 mg qd, Clonidine 0.2 mg q7d patch, Plavix 75 mg qd, Lasix 160 mg BID (can consider switching to muxed at these higher doses), lisinopril 20 mg qd, nifedipine 60 mg qd Assessment & Plan (09/06/2024 6:24 PM CDT): - no chest pain, SOB or CHF exacerbation. Follows with cardiology as OP - Continue on Aspirin 81 mg qd, Lipitor 80 mg qd, Coreg 25 mg qd, Clonidine 0.2 mg q7d patch, Plavix 75 mg qd, Lasix 160 mg BID (can consider switching to muxed at these higher doses), lisinopril 20 mg qd, nifedipine 60 mg qd Assessment & Plan (09/05/2024 5:15 PM CDT): - no chest pain, SOB or CHF exacerbation. Follows with cardiology as OP - Continue on Aspirin 81 mg qd, Lipitor 80 mg qd, Coreg 25 mg qd, Clonidine 0.2 mg q7d patch, Plavix 75 mg qd, Lasix 160 mg BID (can consider switching to muxed at these higher doses), lisinopril 20 mg qd, nifedipine 60 mg qd Assessment & Plan (09/04/2024 5:24 AM CDT): - no chest pain, SOB or CHF exacerbation. Follows with cardiology as OP - Continue on Aspirin 81 mg qd, Lipitor 80 mg qd, Coreg 25 mg qd, Clonidine 0.2 mg q7d patch, Plavix 75 mg qd, Lasix 160 mg BID (can consider switching to muxed at these higher doses), lisinopril 20 mg qd, nifedipine 60 mg qd PAD (peripheral artery disease) 08/18/2024 Assessment & Plan (09/25/2024 2:55 PM CDT): -s/p left AT stent 08/22/24 and L great toe amputation -L foot xray without signs of osteomyelitis -s/p eschar debridement at bedside on 8/8 Plan: -vascular surgery consulted, rec TWYLA and outpt f/u (vascular surgery to schedule) -continue DAPT -low concern for infection at this time will not start infectious treatment/workup Assessment & Plan (09/24/2024 6:58 AM CDT): - s/p left AT stent 08/22/24 and L great toe amputation - ER reported concerns of L great toe infection, on PE toe does not seem infected with minimum drainage Plan: - continue DAPT - low concern for infection at this time will not start infectious treatment/workup Assessment & Plan (09/07/2024 6:23 PM CDT): - presents with some purlence, increased redness, pain and swelling, concerning for cellulitis of great toe. Does not appear septic fortunately. However, given profound vascular disease and T2DM complications, certainly at high risk for developing ulceration and delayed wound healing - Continue on empiric vanc and zosyn. Deescalate pending clinical reassessment/cultures - Pain control with norco and dilaudid prn -CTA: -showing patent stent - XR LLE: -no osteomyelitis TWYLA studies: -Prelim: non compressible vessel, with no flow in L great toe -Vascular c/s: -no acute intervention at this time -Follow BLE vein mapping reports -Interventional cardiology c/s: -Notified of preliminary TWYLA results - will follow Op with patient and recommend to continue Op f/u with podiatry Assessment & Plan (09/06/2024 6:24 PM CDT): - presents with some purlence, increased redness, pain and swelling, concerning for cellulitis of great toe. Does not appear septic fortunately. However, given profound vascular disease and T2DM complications, certainly at high risk for developing ulceration and delayed wound healing - Continue on empiric vanc and zosyn. Deescalate pending clinical reassessment/cultures - Pain control with norco and dilaudid prn -CTA: -showing patent stent - XR LLE: -no osteomyelitis TWYLA studies: -Prelim: non compressible vessel, with no flow in L great toe -Vascular c/s: -no acute intervention at this time -Follow BLE vein mapping -Interventional cardiology c/s: -Notified of preliminary TWYLA results -Will eval in AM Assessment & Plan (09/05/2024 5:15 PM CDT): - presents with some purlence, increased redness, pain and swelling, concerning for cellulitis of great toe. Does not appear septic fortunately. However, given profound vascular disease and T2DM complications, certainly at high risk for developing ulceration and delayed wound healing - Continue on empiric vanc and zosyn. Deescalate pending clinical reassessment/cultures - Pain control with norco and dilaudid prn -CTA: -showing patent stent -Follow XR, TWYLA studies and venous duplex - consider interventional cardiology involvement Assessment & Plan (09/04/2024 5:24 AM CDT): - presents with some purlence, increased redness, pain and swelling, concerning for cellulitis of great toe. Does not appear septic fortunately. However, given profound vascular disease and T2DM complications, certainly at high risk for developing ulceration and delayed wound healing - CTA ordered. Awaiting read - Continue on empiric vanc and zosyn. 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 Does not appear septic fortunately. However, given profound vascular disease and T2DM complications, certainly at high risk for developing ulceration and delayed wound healing - Continue on empiric vanc and zosyn. Deescalate pending clinical reassessment/cultures - Pain control with norco and dilaudid prn -CTA: -showing patent stent - XR LLE: -no osteomyelitis TWYLA studies: -Prelim: non compressible vessel, with no flow in L great toe -Vascular c/s: -no acute intervention at this time -Follow BLE vein mapping reports -Interventional cardiology c/s: -Notified of preliminary TWYLA results - will follow Op with patient and recommend to continue Op f/u with podiatry Assessment & Plan (09/06/2024 6:24 PM CDT): - presents with some purlence, increased redness, pain and swelling, concerning for cellulitis of great toe. Does not appear septic fortunately. However, given profound vascular disease and T2DM complications, certainly at high risk for developing ulceration and delayed wound healing - Continue on empiric vanc and zosyn. Deescalate pending clinical reassessment/cultures - Pain control with norco and dilaudid prn -CTA: -showing patent stent - XR LLE: -no osteomyelitis TWYLA studies: -Prelim: non compressible vessel, with no flow in L great toe -Vascular c/s: -no acute intervention at this time -Follow BLE vein mapping -Interventional cardiology c/s: -Notified of preliminary TWYLA results -Will eval in AM Assessment & Plan (09/05/2024 5:15 PM CDT): - presents with some purlence, increased redness, pain and swelling, concerning for cellulitis of great toe. Does not appear septic fortunately. However, given profound vascular disease and T2DM complications, certainly at high risk for developing ulceration and delayed wound healing - Continue on empiric vanc and zosyn. Deescalate pending clinical reassessment/cultures - Pain control with norco and dilaudid prn -CTA: -showing patent stent -Follow XR, TWYLA studies and venous duplex - consider interventional cardiology involvement Assessment & Plan (09/04/2024 5:24 AM CDT): - presents with some purlence, increased redness, pain and swelling, concerning for cellulitis of great toe. Does not appear septic fortunately. However, given profound vascular disease and T2DM complications, certainly at high risk for developing ulceration and delayed wound healing - CTA ordered. Awaiting read - Continue on empiric vanc and zosyn. Deescalate pending clinical reassessment/cultures - Pain control with norco and dilaudid prn - consider interventional cardiology involvement, pending CTA results, if vessel amenable to PCI Peripheral arterial disease 08/03/2024 Assessment & Plan (09/13/2024 3:42 PM CDT): - worsening dry gangrene though no wet gangrene or signs of infection noted - recent stenting for PAD - aspirin, plavix, statin - vascular surgery consulted, possible left toe amputation on 09/14 Arterial leg ulcer 08/03/2024 Assessment & Plan (09/16/2024 3:13 PM CDT): - worsening dry gangrene though no wet gangrene or signs of infection noted - recent stenting for PAD - aspirin, plavix, statin - vascular surgery consulted, patient underwent left first toe amputation, dressing change on 09/16 POD2 - pathology tissue showing acute osteomyelitis but with negative bone margins Assessment & Plan (09/15/2024 11:21 AM CDT): - worsening dry gangrene though no wet gangrene or signs of infection noted - recent stenting for PAD - aspirin, plavix, statin - vascular surgery consulted, patient underwent left first toe amputation, dressing change on 09/16 POD2 - F/U pathology tissue Assessment & Plan (09/14/2024 1:17 PM CDT): - worsening dry gangrene though no wet gangrene or signs of infection noted - recent stenting for PAD - aspirin, plavix, statin - vascular surgery consulted, patient underwent left first toe amputation - F/U pathology tissue Assessment & Plan (09/13/2024 3:42 PM CDT): - worsening dry gangrene though no wet gangrene or signs of infection noted - recent stenting for PAD - aspirin, plavix, statin - vascular surgery consulted, possible left toe amputation on 09/14 Assessment & Plan (09/13/2024 2:27 PM CDT): -Severe-Critical Limb ischemia/PAD s/p PCI on 08/22/24 - continue statins, DAPT, -PRN opiates and home gabapentin for pain control -follow wound care recs -follow CT aorta Assessment & Plan (09/13/2024 7:06 AM CDT): -Severe-Critical Limb ischemia/PAD s/p PCI on 08/22/24 - continue statins, DAPT, -PRN opiates and home gabapentin for pain control -follow wound care recs -follow CT aorta Assessment & Plan (09/07/2024 6:23 PM CDT): - presents with some purlence, increased redness, pain and swelling, concerning for cellulitis of great toe. Does not appear septic fortunately. However, given profound vascular disease and T2DM complications, certainly at high risk for developing ulceration and delayed wound healing - Continue on empiric vanc and zosyn. Deescalate pending clinical reassessment/cultures - Pain control with norco and dilaudid prn -CTA: -showing patent stent - XR LLE: -no osteomyelitis TWYLA studies: -Prelim: non compressible vessel, with no flow in L great toe -Vascular c/s: -no acute intervention at this time -Follow BLE vein mapping reports -Interventional cardiology c/s: -Notified of preliminary TWYLA results - will follow Op with patient and recommend to continue Op f/u with podiatry Assessment & Plan (09/06/2024 6:24 PM CDT): - presents with some purlence, increased redness, pain and swelling, concerning for cellulitis of great toe. Does not appear septic fortunately. However, given profound vascular disease and T2DM complications, certainly at high risk for developing ulceration and delayed wound healing - Continue on empiric vanc and zosyn. Deescalate pending clinical reassessment/cultures - Pain control with norco and dilaudid prn -CTA: -showing patent stent - XR LLE: -no osteomyelitis TWYLA studies: -Prelim: non compressible vessel, with no flow in L great toe -Vascular c/s: -no acute intervention at this time -Follow BLE vein mapping -Interventional cardiology c/s: -Notified of preliminary TWYLA results -Will eval in AM Assessment & Plan (09/05/2024 5:15 PM CDT): - presents with some purlence, increased redness, pain and swelling, concerning for cellulitis of great toe. Does not appear septic fortunately. However, given profound vascular disease and T2DM complications, certainly at high risk for developing ulceration and delayed wound healing - Continue on empiric vanc and zosyn. Deescalate pending clinical reassessment/cultures - Pain control with norco and dilaudid prn -CTA: -showing patent stent -Follow XR, TWYLA studies and venous duplex - consider interventional cardiology involvement Assessment & Plan (09/04/2024 5:24 AM CDT): - presents with some purlence, increased redness, pain and swelling, concerning for cellulitis of great toe. Does not appear septic fortunately. However, given profound vascular disease and T2DM complications, certainly at high risk for developing ulceration and delayed wound healing - CTA ordered. Awaiting read - Continue on empiric vanc and zosyn. Deescalate pending clinical reassessment/cultures - Pain control with norco and dilaudid prn - consider interventional cardiology involvement, pending CTA results, if vessel amenable to PCI Dyspnea on exertion 07/21/2024 Pre-kidney transplant, listed 07/21/2024 Coronary artery disease with angina pectoris 05/2024 Abnormal findings on cardiac catheterization 05/2024 Abnormal stress test 07/14/2024 Chronic diastolic heart failure 01/12/2024 Assessment & Plan (09/13/2024 3:42 PM CDT): - lightheadedness and lethargy are possibly due to hypotension from recent addition of nifedipine to home regimen for hypertension. - aspirin 81 mg daily, lipitor 80 mg daily - continue home lasix, lisinopril, clonidine, coreg Assessment & Plan (09/07/2024 6:23 PM CDT): - no chest pain, SOB or CHF exacerbation. Follows with cardiology as OP - Continue on Aspirin 81 mg qd, Lipitor 80 mg qd, Coreg 25 mg qd, Clonidine 0.2 mg q7d patch, Plavix 75 mg qd, Lasix 160 mg BID (can consider switching to muxed at these higher doses), lisinopril 20 mg qd, nifedipine 60 mg qd Assessment & Plan (09/06/2024 6:24 PM CDT): - no chest pain, SOB or CHF exacerbation. Follows with cardiology as OP - Continue on Aspirin 81 mg qd, Lipitor 80 mg qd, Coreg 25 mg qd, Clonidine 0.2 mg q7d patch, Plavix 75 mg qd, Lasix 160 mg BID (can consider switching to muxed at these higher doses), lisinopril 20 mg qd, nifedipine 60 mg qd Assessment & Plan (09/05/2024 5:15 PM CDT): - no chest pain, SOB or CHF exacerbation. Follows with cardiology as OP - Continue on Aspirin 81 mg qd, Lipitor 80 mg qd, Coreg 25 mg qd, Clonidine 0.2 mg q7d patch, Plavix 75 mg qd, Lasix 160 mg BID (can consider switching to muxed at these higher doses), lisinopril 20 mg qd, nifedipine 60 mg qd Assessment & Plan (09/04/2024 5:24 AM CDT): - no chest pain, SOB or CHF exacerbation. Follows with cardiology as OP - Continue on Aspirin 81 mg qd, Lipitor 80 mg qd, Coreg 25 mg qd, Clonidine 0.2 mg q7d patch, Plavix 75 mg qd, Lasix 160 mg BID (can consider switching to muxed at these higher doses), lisinopril 20 mg qd, nifedipine 60 mg qd History of renal cell carcinoma 01/12/2024 Assessment & Plan (09/07/2024 6:23 PM CDT): - no issues with PD. Denies ab pain and fevers - consult nephro in AM for PD recs Assessment & Plan (09/06/2024 6:24 PM CDT): - no issues with PD. Denies ab pain and fevers - consult nephro in AM for PD recs Assessment & Plan (09/05/2024 5:15 PM CDT): - no issues with PD. Denies ab pain and fevers - consult nephro in AM for PD recs Assessment & Plan (09/04/2024 5:24 AM CDT): - no issues with PD. Denies ab pain and fevers - consult nephro in AM for PD recs Hyperlipidemia 05/01/2023 Assessment & Plan (09/25/2024 2:55 PM CDT): -continue atorvastatin 80 mg daily Assessment & Plan (09/24/2024 6:20 AM CDT): - continue atorvastatin 80 mg daily HTN (hypertension) 05/01/2023 Assessment & Plan (09/25/2024 2:55 PM CDT): -continue home coreg 25 mg BID, furosemide 160 mg BID, lisinopril 20 mg BID, nifedipine 30 mg daily -continue aspirin 81 mg daily Assessment & Plan (09/24/2024 6:20 AM CDT): {[facility] Quick Recap - Optional:47604:::1} -continue home coreg 25 mg BID, furosemide 160 mg BID, lisinopril 20 mg BID, nifedipine 30 mg daily -continue aspirin 81 mg daily Assessment & Plan (09/16/2024 3:13 PM CDT): - lightheadedness and lethargy are possibly due to hypotension from recent addition of nifedipine to home regimen for hypertension. - aspirin 81 mg daily, lipitor 80 mg daily - continue home lasix, lisinopril, clonidine, coreg - nifedipine resumed at 30 mg daily Assessment & Plan (09/15/2024 11:21 AM CDT): - lightheadedness and lethargy are possibly due to hypotension from recent addition of nifedipine to home regimen for hypertension. - aspirin 81 mg daily, lipitor 80 mg daily - continue home lasix, lisinopril, clonidine, coreg Assessment & Plan (09/14/2024 1:14 PM CDT): - lightheadedness and lethargy are possibly due to hypotension from recent addition of nifedipine to home regimen for hypertension. - aspirin 81 mg daily, lipitor 80 mg daily - continue home lasix, lisinopril, clonidine, coreg Assessment & Plan (09/13/2024 3:42 PM CDT): - lightheadedness and lethargy are possibly due to hypotension from recent addition of nifedipine to home regimen for hypertension. - aspirin 81 mg daily, lipitor 80 mg daily - continue home lasix, lisinopril, clonidine, coreg Assessment & Plan (09/13/2024 2:27 PM CDT): -in context of EKD and currently controlled -continue home meds however held nifedipine as mentioned patient had an episode of SBP in 80s when he took all his BP meds at home -did not resume home hydralazine as pt takes it only PRN -Monitor BP and adjust accordingly Assessment & Plan (09/13/2024 7:06 AM CDT): -in context of EKD and currently controlled -continue home meds however held nifedipine as mentioned patient had an episode of SBP in 80s when he took all his BP meds at home -did not resume home hydralazine as pt takes it only PRN -Monitor BP and adjust accordingly Anemia due to end stage renal disease 04/24/2023 Assessment & Plan (09/07/2024 6:23 PM CDT): - stable, continue to follow CBC qd Assessment & Plan (09/06/2024 6:24 PM CDT): - stable, continue to follow CBC qd Assessment & Plan (09/05/2024 5:15 PM CDT): - stable, continue to follow CBC qd Assessment & Plan (09/04/2024 5:24 AM CDT): - stable, continue to follow CBC qd ESRD on PD 04/24/2023 Assessment & Plan (09/16/2024 1:51 PM CDT): - nephrology consulted for peritoneal dialysis - renal vitamins - hemoglobin baseline around 8-9, presented with acute hgb drop to 5.5, got blood transfusion with improvement back to 9 - hemoglobin stable on repeat, likely lab error since patient does not have overt sign of bleeding and his hgb is stable - continue home lasix, lisinopril, clonidine, coreg Assessment & Plan (09/15/2024 11:21 AM CDT): - nephrology consulted for peritoneal dialysis - renal vitamins - hemoglobin baseline around 8-9, presented with acute hgb drop to 5.5, got blood transfusion with improvement back to 9 - hemoglobin stable on repeat, likely lab error since patient does not have overt sign of bleeding and his hgb is stable - continue home lasix, lisinopril, clonidine, coreg Assessment & Plan (09/14/2024 1:14 PM CDT): - nephrology consulted for peritoneal dialysis - renal vitamins - hemoglobin baseline around 8-9, presented with acute hgb drop to 5.5, got blood transfusion with improvement back to 9 - hemoglobin stable on repeat, likely lab error since patient does not have overt sign of bleeding and his hgb is stable - continue home lasix, lisinopril, clonidine, coreg Assessment & Plan (09/13/2024 3:26 PM CDT): - nephrology consulted for peritoneal dialysis - renal vitamins - hemoglobin baseline around 8-9, presented with acute hgb drop to 5.5, got blood transfusion with improvement back to 9 - hemoglobin stable on repeat, likely lab error since patient does not have overt sign of bleeding and his hgb is stable - continue home lasix, lisinopril, clonidine, coreg Assessment & Plan (09/13/2024 2:27 PM CDT): - 2/2 hx of RCC s/p partial nephrectomy on PD -consult nephrology in AM to help with inpatient care of peritoneal dialysis -continue home lasix, lisinopril (patient and confirmed BID dosing), clonidine, coreg Assessment & Plan (09/13/2024 7:06 AM CDT): - 2/2 hx of RCC s/p partial nephrectomy on PD -consult nephrology in AM to help with inpatient care of peritoneal dialysis -continue home lasix, lisinopril (patient and confirmed BID dosing), clonidine, coreg Assessment & Plan (09/07/2024 6:23 PM CDT): - no issues with PD. Denies ab pain and fevers - consult nephro in AM for PD recs Assessment & Plan (09/06/2024 6:24 PM CDT): - no issues with PD. Denies ab pain and fevers - consult nephro in AM for PD recs Assessment & Plan (09/05/2024 5:15 PM CDT): - no issues with PD. Denies ab pain and fevers - consult nephro in AM for PD recs Assessment & Plan (09/04/2024 5:24 AM CDT): - no issues with PD. Denies ab pain and fevers - consult nephro in AM for PD recs Hypertensive renal failure 04/24/2023 Hypothyroidism 12/04/2020 Assessment & Plan (09/25/2024 2:55 PM CDT): -continue levothyroxine 112 mcg daily Assessment & Plan (09/24/2024 6:20 AM CDT): - continue levothyroxine 112 mcg daily Assessment & Plan (09/16/2024 1:51 PM CDT): - continue home levothyroxine 112 mcg Assessment & Plan (09/15/2024 11:21 AM CDT): - continue home levothyroxine 112 mcg Assessment & Plan (09/14/2024 1:14 PM CDT): - continue home levothyroxine 112 mcg Assessment & Plan (09/13/2024 3:26 PM CDT): - continue home levothyroxine 112 mcg Assessment & Plan (09/13/2024 2:27 PM CDT): -Continue home synthroid Assessment & Plan (09/13/2024 7:06 AM CDT): -Continue home synthroid Assessment & Plan (09/07/2024 6:23 PM CDT): - stable, continue on levothyroxine 112 mcg qd Assessment & Plan (09/06/2024 6:24 PM CDT): - stable, continue on levothyroxine 112 mcg qd Assessment & Plan (09/05/2024 5:15 PM CDT): - stable, continue on levothyroxine 112 mcg qd Assessment & Plan (09/04/2024 5:24 AM CDT): - stable, continue on levothyroxine 112 mcg qd Type 2 diabetes mellitus 12/04/2020 Assessment & Plan (09/25/2024 2:55 PM CDT): -home glargine 35 units daily with SSI -last A1c 5.8 on 09/25/2024 Plan: -blood glucose goal: 140-180 -SSI, glucose checks -hypoglycemia protocol -lantus 12 units during hospitalization Assessment & Plan (09/24/2024 6:20 AM CDT): {[facility] Quick Recap - Optional:[id number]:::1} - home glargine 35 units daily with SSI - BG 140-180 Assessment & Plan (09/16/2024 1:51 PM CDT): - home regimen of lantus 35 units BID - Lantus increased to 35 units daily, sugars have been relatively acceptable with readings around 130s-170s so will hold off increasing back to home regimen for now - SSI 0-12 units TID with meals and bedtime Assessment & Plan (09/15/2024 11:21 AM CDT): - home regimen of lantus 35 units BID - Lantus increased to 35 units daily, sugars have been relatively acceptable with readings around 130s-170s so will hold off increasing back to home regimen for now - SSI 0-12 units TID with meals and bedtime Assessment & Plan (09/14/2024 1:14 PM CDT): - home regimen of lantus 35 units BID - patient was NPO so lantus decreased to 25 units - SSI 0-12 units TID with meals and bedtime Assessment & Plan (09/13/2024 3:26 PM CDT): - home regimen of lantus 35 units BID - patient was NPO so lantus decreased to 25 units - SSI 0-12 units TID with meals and bedtime Assessment & Plan (09/13/2024 2:27 PM CDT): -listed basaglar dose is 55 units BID however patient takes 35 units BID -currently only 25 units once daily ordered due to NPO status -continue SSI with q6H POCs -continue statins Assessment & Plan (09/13/2024 7:06 AM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 09/25/2024 11:52 AM CDT Oxygen Saturation 95% 09/25/2024 11:52 AM CDT Inhaled Oxygen Concentration - - Weight 118.8 kg (262 lb) 09/24/2024 4:31 AM CDT Height 172.7 cm (5' 8) 09/24/2024 4:31 AM CDT Body Mass Index 39.84 09/24/2024 4:31 AM CDT Plan of Treatment Upcoming Encounters Date Type Department Care Team (Late st Contact Info) Description 10/04/2024 11:40 AM CDT Office Visit [facility] - Cardiology [address] [facility], [place] [id number] [place] [address] Hannah Goodman MD [address] [facility] DIV OF CARDIOLOGY [address] [place] [address] 10/05/2024 11:[address] [facility] US [address] [place] [address] Guy Messina MD [address] [facility] 2L DIV [place] [address] 10/05/2024 1:45 PM CDT Office Visit [facility] - Vascular Surgery [address] [place] [address], [place] [address] Guy Messina MD [address] [facility] 2L DIV [place] [address] Elroy Holcomb MD [address] [facility] 2L [place] [address] 10/13/2024 1:00 PM CDT Office Visit [facility] - Cardiology [address] [facility], [address] [address] Maylin Cutler, [address] [phone] 10/15/2024 3:[address] [facility] US [address] [place] [address] Hannah Goodman MD [address] [facility] DIV OF CARDIOLOGY [address] [place] [address] 12/06/2024 10:40 AM CDT Office Visit [facility] - Endocrinology [address] [place] [address], [place] [phone] Marbin Flores MD [address] DIV OF [place]BD [place] [address] Niraj Turner MD [address] [place] [address] Health Maintenance Due Date Last Done Comments [...] 03/26/2022 03/26/2021, 08/17/2020, 03/21/2020, Additional history exists DIABETES-FOOT EXAM WITH MONOFILAMENT 01/12/2024 DEPRESSION SCREENING 02/18/2024 MEDICARE AWV CALENDAR YEAR 2024 COVID-19 VACCINE ( - season) 2024 12/13/2023, 05/05/2020, 04/20/2020, Additional history exists INFLUENZA VACCINE (#1) 2024 , 05/03/2023, 10/29/2020, Additional history exists DIABETES-HGB A1C 03/28/2025 09/25/2024, , 04/23/2024, Additional history exists DIABETES RETINOPATHY SCREENING 10/07/2025 [...] this topic Medical Devices Implanted Type Area Ward Nurse Device Identifier Shelf Expiration Date Model / Serial / Lot Sys Cor Stent Xience Srr 3mm 18mm Rap Ex Implanted:Qty: 1 on 08/04/2020 by Javier Lan MD at [facility] Stent [employer]ary [employer] 06/19/2022 [id number] Description:STENT Sys Cor Stent Xience Srr 3mm 8mm Rap Ex Implanted:Qty: 1 on 08/04/2020 by Javier Lan MD at [facility] St[employer] 09/03/2021 [id number] Description:stent Sys Cor Stent Sng Xd Monrl 3.5mm 48mm - [id number] Implanted:Qty: 1 on 08/18/2024 by Hannah Goodman MD at [facility] [employer] [id number] 09/07/2025 [id number] / [id number] / [id number] Sys Cor Stent Sng Xd Mr 4mm 24mm Dlv Sys - [id number] Implanted:Qty: 1 on 09/01/2024 by Vanessa Medina MD at [facility] [employer]i [id number] 10/19/2025 [id number] / [id number] / [id number] Explanted Type Area Ward Nurse Device Identifier Shelf Expiration Date Model / Serial / Lot Cath Pace Eltrd Biplr Dist Tip Balln Flw - [id number] Explanted:Qty: 1 on 09/01/2024 at [facility] [employer] [id number] 12/17/2025 [id number] / [id number] / [id number] Procedures Procedure Name Priority Date/Time Associated Diagnosis Comments CARDIAC EKG ORDER 09/28/2024 12: 17 PM CDT GLUCOSE - POINT OF CARE Routine 09/25/2024 11:51 AM CDT GLUCOSE - POINT OF CARE Routine 09/25/2024 9:56 AM CDT PT EVAL AND TREAT Routine 09/25/2024 8:3 2 AM CDT GLUCOSE - POINT OF CARE Routine 09/25/2024 7:57 AM CDT PHOSPHORUS BLOOD Routine 09/25/2024 5:06 AM CDT MAGNESIUM BLOOD Routine 09/25/2024 5:06 AM CDT COMPREHENSIVE METABOLIC PANEL Routine 09/25/2024 5:06 AM CDT CBC W AUTO DIFFERENTIAL Routine 09/25/2024 5:06 AM CDT HEMOGLOBIN A1C Routine 09/25/2024 5:06 AM CDT GLUCOSE - POINT OF CARE Routine 09/24/2024 8:10 PM CDT RENAL FUNCTION PANEL Routine 09/24/2024 7:53 PM CDT GLUCOSE - POINT OF CARE Routine 09/24/2024 4:48 PM CDT PERITONEAL DIALYSIS INPATIENT CCPD Routine 09/24/2024 4:04 PM CDT GLUCOSE - POINT OF CARE Routine 09/24/2024 12:11 PM CDT VITAMIN B1 Routine 09/24/2024 12:02 PM CDT VITAMIN B12 Routine 09/24/2024 12:02 PM CDT TSH REFLEX FREE T4 Routine 09/24/2024 12 :02 PM CDT GLUCOSE - POINT OF CARE Routine 09/24/2024 9:31 AM CDT TROPONIN-I HIGH SENSITIVE STAT 09/24/2024 5:08 AM CDT PHOSPHORUS BLOOD STAT 09/24/2024 1:29 AM CDT MAGNESIUM BLOOD STAT 09/24/2024 1:29 AM CDT COMPREHENSIVE METABOLIC PANEL STAT 09/24/2024 1:29 AM CDT TROPONIN-I HIGH SENSITIVE REFLEX 1HOUR Timed 09/24/2024 1:[address] LUMBAR SPINE WO CONTRAST STAT 09/23/2024 5:21 PM CDT Fall, initial encounter CT THORACIC SPINE WO CONTRAST STAT 09/23/2024 5:21 PM CDT Fall, initial encounter CT CERVICAL SPINE WO CONTRAST STAT 09/23/2024 5:21 PM CDT Fall, initial encounter CT HEAD WO CONTRAST STAT 09/23/2024 5 :21 PM CDT Fall, initial encounter Altered mental status, unspecified altered mental status type XR CHEST 2VW STAT 09/23/2024 5:15 PM CDT Fall, initial encounter XR FOOT LEFT 3VW OR MORE STAT 09/23/2024 5:15 PM CDT Fall, initial encounter DIFFERENTIAL MANUAL STAT 09/23/2024 4 :52 PM CDT MAGNESIUM BLOOD STAT 09/23/2024 4:52 PM CDT TROPONIN-I HIGH SENSITIVE BASELINE + 1HR STAT 09/23/2024 4:52 PM CDT B-TYPE NATRIURETIC PEPTIDE STAT 09/23/2024 4:52 PM CDT ERYTHROCYTE SEDIMENTATION RATE STAT 09/23/2024 4:52 PM CDT C-REACTIVE PROTEIN ANDIE 09/23/2024 4: 52 PM CDT COMPREHENSIVE METABOLIC PANEL STAT 09/23/2024 4:52 PM CDT CBC W AUTO DIFFERENTIAL STAT 09/23/2024 4:52 PM CDT EKG 12-LEAD STAT 09/23/2024 4:22 PM CDT Altered mental status, unspecified altered mental status type CARDIAC EKG ORDER 09/20/2024 12: 30 PM CDT TROPONIN-I HIGH SENSITIVE REFLEX 1HOUR Timed 09/18/2024 7:57 PM CDT XR CHEST 1VW PORTABLE STAT 09/18/2024 5:22 PM CDT Lightheadedness EKG 12-LEAD STAT 09/18/2024 4:40 PM CDT Lightheadedness TROPONIN-I HIGH SENSITIVE BASELINE + 1HR STAT 09/18/2024 4:34 PM CDT COMPREHENSIVE METABOLIC PANEL STAT 09/18/2024 4:34 PM CDT CBC W AUTO DIFFERENTIAL STAT 09/18/2024 4:34 PM CDT GLUCOSE - POINT OF CARE Routine 09/16/2024 3:54 PM CDT GLUCOSE - POINT OF CARE Routine 09/16/2024 12:08 PM CDT GLUCOSE - POINT OF CARE Routine 09/16/2024 8:44 AM CDT GLUCOSE - POINT OF CARE Routine 09/16/2024 4:04 AM CDT GLUCOSE - POINT OF CARE Routine 09/16/2024 1:08 AM CDT MAGNESIUM BLOOD Routine 09/16/2024 1:01 AM CDT RENAL FUNCTION PANEL AM Draw 09/16/2024 1:01 AM CDT CBC W/O DIFFERENTIAL AM Draw 09/16/2024 1:01 AM CDT GLUCOSE - POINT OF CARE Routine 09/15/2024 9:00 PM CDT GLUCOSE - POINT OF CARE Routine 09/15/2024 6:44 PM CDT VANCOMYCIN LEVEL RANDOM Timed 09/15/2024 4:10 PM CDT History of vascular disease GLUCOSE - POINT OF CARE Routine 09/15/2024 1:12 PM CDT GLUCOSE - POINT OF CARE Routine 09/15/2024 9:15 AM CDT GLUCOSE - POINT OF CARE Routine 09/15/2024 4:20 AM CDT GLUCOSE - POINT OF CARE Routine 09/15/2024 12:44 AM CDT MAGNESIUM BLOOD Routine 09/15/2024 12:28 AM CDT RENAL FUNCTION PANEL AM Draw 09/15/2024 12:28 AM CDT CBC W/O DIFFERENTIAL AM Draw 09/15/2024 12:28 AM CDT GLUCOSE - POINT OF CARE Routine 09/14/2024 8:42 PM CDT TROPONIN-I HIGH SENSITIVE REFLEX 1HOUR Timed 09/14/2024 7:01 PM CDT TROPONIN-I HIGH SENSITIVE BASELINE + 1HR STAT 09/14/2024 5:23 PM CDT GLUCOSE - POINT OF CARE Routine 09/14/2024 4:19 PM CDT LACTIC ACID BLOOD Timed 09/14/2024 3:3 2 PM CDT HGB HCT PANEL STAT 09/14/2024 1:24 PM CDT LACTIC ACID BLOOD STAT 09/14/2024 12: 28 PM CDT MAGNESIUM BLOOD Routine 09/14/2024 12:28 PM CDT Anemia, unspecified type COMPREHENSIVE METABOLIC PANEL Routine 09/14/2024 12:28 PM CDT Anemia, unspecified type CBC W/O DIFFERENTIAL Routine 09/14/2024 12:28 PM CDT Anemia, unspecified type GLUCOSE - POINT OF CARE Routine 09/14/2024 12:16 PM CDT PATHOLOGY TISSUE Routine 09/14/2024 11:4 5 AM CDT Toe gangrene (HCC) PERIPHERAL BLOCK Routine 09/14/2024 10:3 8 AM CDT AL AMPUTATION METATARSAL+TOE,SINGLE 09/14/2024 10:23 AM CDT Toe gangrene (HCC) GLUCOSE - POINT OF CARE Routine 09/14/2024 7:55 AM CDT PERITONEAL DIALYSIS INPATIENT CCPD Routine 09/14/2024 12:01 AM CDT GLUCOSE - POINT OF CARE Routine 09/13/2024 8:17 PM CDT LACTIC ACID BLOOD STAT 09/13/2024 8:1 5 PM CDT DIFFERENTIAL MANUAL FLUID STAT 09/13/2024 8:08 PM CDT CELL COUNT W DIFFERENTIAL FLUID STAT 09/13/2024 8:08 PM CDT CULTURE FUNGUS OTHER+FUNGUS SMEAR STAT 09/13/2024 8:08 PM CDT CULTURE FLUID+GRAM STAIN STAT 09/13/2024 8:08 PM CDT CULTURE ANAEROBE STAT 09/13/2024 8:08 PM CDT GLUCOSE - POINT OF CARE Routine 09/13/2024 7:01 PM CDT PERITONEAL DIALYSIS INPATIENT CCPD Routine 09/13/2024 6:14 PM CDT PERITONEAL DIALYSIS INPATIENT CCPD Routine 09/13/2024 6:14 PM CDT VAS BILATERAL VENOUS DUPLEX LE STAT 09/13/2024 4:34 PM CDT Leg edema, left XR FOOT LEFT 3VW OR MORE STAT 09/13/2024 3:44 PM CDT History of vascular disease HGB HCT PANEL STAT 09/13/2024 11:12 AM CDT Anemia, unspecified type BLOOD GASES ABBEY + COOX PANEL STAT 09/13/2024 11:12 AM CDT Anemia, unspecified type LACTIC ACID BLOOD STAT 09/13/2024 11: 12 AM CDT Anemia, unspecified type GLUCOSE - POINT OF CARE Routine 09/13/2024 9:35 AM CDT PT EVAL AND TREAT Routine 09/13/2024 6:5 0 AM CDT OT EVAL AND TREAT Routine 09/13/2024 6:5 0 AM CDT SARS-COV-2 (COVID-19) RAPID STAT 09/13/2024 6:02 AM CDT Anemia, unspecified type DIFFERENTIAL MANUAL STAT 09/13/2024 5 :05 AM CDT CBC W AUTO DIFFERENTIAL STAT 09/13/2024 5:05 AM CDT LACTIC ACID BLOOD REFLEX TO REPEAT Timed STAT 09/13/2024 3:22 AM CDT TRANSFUSE RED BLOOD CELL LEUKOREDUCED UNIT(S) Routine 09/13/2024 1:50 AM CDT LACTIC ACID BLOOD REFLEX TO REPEAT Timed STAT 09/13/2024 12:[address] ANGIO AORTA FOR DISSECTION STAT 09/13/2024 12:27 AM CDT Abdominal pain, unspecified abdominal location PREPARE RBC LEUKOREDUCED UNIT STAT 09/12/2024 11:30 PM CDT TYPE + SCREEN PANEL STAT 09/12/2024 1 1:30 PM CDT DIFFERENTIAL MANUAL STAT 09/12/2024 1 0:03 PM CDT LACTIC ACID BLOOD REFLEX TO REPEAT STAT 09/12/2024 10:03 PM CDT CBC W AUTO DIFFERENTIAL STAT 09/12/2024 10:03 PM CDT GLUCOSE - POINT OF CARE Routine 09/12/2024 10:02 PM CDT COMPREHENSIVE METABOLIC PANEL STAT 09/12/2024 10:00 PM CDT CULTURE BLOOD Timed 09/12/2024 10:00 PM CDT CULTURE BLOOD Timed 09/12/2024 10:00 PM CDT GLUCOSE - POINT OF CARE Routine 09/08/2024 11:27 AM CDT PHOSPHORUS BLOOD Routine 09/08/2024 10:4 5 AM CDT MAGNESIUM BLOOD Routine 09/08/2024 10:45 AM CDT CBC W/O DIFFERENTIAL Routine 09/08/2024 10:45 AM CDT BASIC METABOLIC PANEL (CALCIUM TOTAL) Routine 09/08/2024 10:45 AM CDT GLUCOSE - POINT OF CARE Routine 09/08/2024 7:56 AM CDT GLUCOSE - POINT OF CARE Routine 09/07/2024 4:40 PM CDT GLUCOSE - POINT OF CARE Routine 09/07/2024 3:46 PM CDT GLUCOSE - POINT OF CARE Routine 09/07/2024 3:22 PM CDT GLUCOSE - POINT OF CARE Routine 09/07/2024 2:57 PM CDT GLUCOSE - POINT OF CARE Routine 09/07/2024 2:26 PM CDT VAS BILATERAL VENOUS MAPPING Routine 09/07/2024 2:24 PM CDT PAD (peripheral artery disease) VANCOMYCIN LEVEL RANDOM Timed 09/07/2024 1:08 PM CDT GLUCOSE - POINT OF CARE Routine 09/07/2024 11:08 AM CDT GLUCOSE - POINT OF CARE Routine 09/07/2024 7:37 AM CDT MAGNESIUM BLOOD Routine 09/07/2024 4:33 AM CDT PHOSPHORUS BLOOD Routine 09/07/2024 4:33 AM CDT CBC W/O DIFFERENTIAL Routine 09/07/2024 4:33 AM CDT BASIC METABOLIC PANEL (CALCIUM TOTAL) Routine 09/07/2024 4:33 AM CDT GLUCOSE - POINT OF CARE Routine 09/06/2024 7:37 PM CDT GLUCOSE - POINT OF CARE Routine 09/06/2024 5:25 PM CDT GLUCOSE - POINT OF CARE Routine 09/06/2024 5:06 PM CDT VAS ARTERIAL ANKLE ARM INDEX Routine 09/06/2024 1:17 PM CDT Cellulitis of left lower extremity GLUCOSE - POINT OF CARE Routine 09/06/2024 11:08 AM CDT MAGNESIUM BLOOD Routine 09/06/2024 5:45 AM CDT PHOSPHORUS BLOOD Routine 09/06/2024 5:45 AM CDT CBC W/O DIFFERENTIAL Routine 09/06/2024 5:45 AM CDT BASIC METABOLIC PANEL (CALCIUM TOTAL) Routine 09/06/2024 5:45 AM CDT HOME CPAP/BIPAP FOR HOSP USE: NOCTURNAL 02 Routine 09/06/2024 12:01 AM CDT PERITONEAL DIALYSIS INPATIENT CCPD Routine 09/06/2024 12:01 AM CDT GLUCOSE - POINT OF CARE Routine 09/05/2024 7:47 PM CDT GLUCOSE - POINT OF CARE Routine 09/05/2024 5:19 PM CDT VANCOMYCIN LEVEL RANDOM Timed 09/05/2024 12:44 PM CDT GLUCOSE - POINT OF CARE Routine 09/05/2024 11:49 AM CDT GLUCOSE - POINT OF CARE Routine 09/05/2024 8:08 AM CDT MAGNESIUM BLOOD Routine 09/05/2024 5:20 AM CDT PHOSPHORUS BLOOD Routine 09/05/2024 5:20 AM CDT CBC W/O DIFFERENTIAL Routine 09/05/2024 5:20 AM CDT BASIC METABOLIC PANEL (CALCIUM TOTAL) Routine 09/05/2024 5:20 AM CDT PERITONEAL DIALYSIS INPATIENT CCPD Routine 09/05/2024 12:00 AM CDT HOME CPAP/BIPAP FOR HOSP USE: NOCTURNAL 02 Routine 09/05/2024 12:00 AM CDT HOME CPAP/BIPAP FOR HOSP USE: NOCTURNAL 02 Routine 09/04/2024 8:10 PM CDT HOME CPAP/BIPAP FOR HOSP USE: NOCTURNAL 02 Routine 09/04/2024 8:10 PM CDT GLUCOSE - POINT OF CARE Routine 09/04/2024 8:06 PM CDT GLUCOSE - POINT OF CARE Routine 09/04/2024 5:09 PM CDT GLUCOSE - POINT OF CARE Routine 09/04/2024 1:02 PM CDT XR FOOT LEFT 3VW OR MORE Routine 09/04/2024 10:52 AM CDT Cellulitis of left lower extremity PERITONEAL DIALYSIS INPATIENT CCPD Routine 09/04/2024 10:01 AM CDT GLUCOSE - POINT OF CARE Routine 09/04/2024 8:58 AM CDT PHOSPHORUS BLOOD STAT 09/04/2024 8:33 AM CDT GLUCOSE - POINT OF CARE Routine 09/04/2024 6:23 AM CDT C-REACTIVE PROTEIN ANDIE 09/04/2024 2: 26 AM CDT ERYTHROCYTE SEDIMENTATION RATE STAT 09/04/2024 2:26 AM CDT COMPREHENSIVE METABOLIC PANEL STAT 09/04/2024 2:[address] ANGIO LOWER EXTREMITY LEFT STAT 09/04/2024 2:15 AM CDT Left leg pain CULTURE BLOOD STAT 09/04/2024 1:29 AM CDT CULTURE BLOOD STAT 09/04/2024 1:23 AM CDT CBC W AUTO DIFFERENTIAL STAT 09/03/2024 8:58 PM CDT POTASSIUM WHOLE BLD ANDIE 09/01/2024 3 :54 PM CDT Coronary artery disease with angina pectoris, unspecified vessel or lesion type, unspecified whether [place] or transplanted heart CCL TEMPORARY PACEMAKER INSERTION Routine 09/01/2024 2:18 PM CDT Abnormal stress test Dyspnea on exertion Pre-kidney transplant, listed Coronary artery disease with angina pectoris, unspecified vessel or lesion type, unspecified whether [place] or transplanted heart Abnormal findings on cardiac catheterization CCL CORONARY ATHERECTOMY Routine 09/01/2024 2:18 PM CDT Abnormal stress test Dyspnea on exertion Pre-kidney transplant, listed Coronary artery disease with angina pectoris, unspecified vessel or lesion type, unspecified whether [place] or transplanted heart Abnormal findings on cardiac catheterization CCL CORONARY IVUS Routine 09/01/2024 2:1 8 PM CDT Abnormal stress test Dyspnea on exertion Pre-kidney transplant, listed Coronary artery disease with angina pectoris, unspecified vessel or lesion type, unspecified whether [place] or transplanted heart Abnormal findings on cardiac catheterization CCL STAGED PERC CORONARY INTERVENTION Routine 09/01/2024 2:18 PM CDT Abnormal stress test Dyspnea on exertion Pre-kidney transplant, listed Coronary artery disease with angina pectoris, unspecified vessel or lesion type, unspecified whether [place] or transplanted heart Abnormal findings on cardiac catheterization GLUCOSE - POINT OF CARE Routine 09/01/2024 10:00 AM CDT CBC W/O DIFFERENTIAL ANDIE 09/01/2024 9:57 AM CDT Coronary artery disease with angina pectoris, unspecified vessel or lesion type, unspecified whether [place] or transplanted heart Abnormal findings on cardiac catheterization BASIC METABOLIC PANEL (CALCIUM TOTAL) ANDIE 09/01/2024 9:57 AM CDT Coronary artery disease with angina pectoris, unspecified vessel or lesion type, unspecified whether [place] or transplanted heart Abnormal findings on cardiac catheterization GLUCOSE - POINT OF CARE Routine 08/19/2024 12:30 PM CDT GLUCOSE - POINT OF CARE Routine 08/19/2024 8:20 AM CDT FERRITIN Routine 08/19/2024 1:41 [...] (HCC) PTH INTACT W/O CALCIUM AM Draw 08/19/2024 1:17 AM CDT Anemia due to end stage renal disease (HCC) GLUCOSE - POINT OF CARE Routine 08/18/2024 10:35 PM CDT PERITONEAL DIALYSIS INPATIENT CCPD Routine 08/18/2024 9:52 PM CDT INVASIVE PERIPHERAL VASCULAR - INTERVENTIONAL RADIOLOGY PROCEDURE Routine 08/18/2024 2:33 PM CDT 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) [...] ARTERY 08/18/2024 10:49 AM CDT 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) GLUCOSE - POINT OF CARE Routine 08/18/2024 10:15 AM CDT BASIC METABOLIC PANEL (CALCIUM TOTAL) ANDIE 08/18/2024 10:11 AM CDT 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) CBC W/O DIFFERENTIAL ANDIE 08/18/2024 10:01 AM CDT 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) MRI ABDOMEN WWO CONTRAST Routine 08/04/2024 12:24 PM CDT Renal cyst Left renal mass CCL LEFT HEART CATH Routine 07/21/2024 1 :54 PM CDT Atherosclerosis of [place] coronary artery of [place] heart without angina pectoris Abnormal stress test ACT LR - POCT ([facility]) Routine 07/21/2024 1:26 PM CDT EKG 12-LEAD Routine 07/21/2024 10:40 AM CDT Atherosclerosis of [place] coronary artery of [place] heart without angina pectoris Abnormal stress test GLUCOSE - POINT OF CARE Routine 07/21/2024 10:28 AM CDT CBC W/O DIFFERENTIAL ANDIE 07/21/2024 10:26 AM CDT Atherosclerosis of [place] coronary artery of [place] heart without angina pectoris Abnormal stress test BASIC METABOLIC PANEL (CALCIUM TOTAL) ANDIE 07/21/2024 10:26 AM CDT Atherosclerosis of [place] coronary artery of [place] heart without angina pectoris Abnormal stress test HEPATITIS C ANTIBODY Routine 06/16/2024 4:15 PM CDT Pre-kidney transplant, listed ESRD (end stage renal disease) ([facility]) 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 Narrative 09/28/2024 12:17 PM CDT Ordered by an unspecified provider. us Scanned Document CARDIAC SERVICES ORDERABLES Fin al Result * (ABNORMAL) GLUCOSE - POINT OF CARE (09/25/2024 11:51 AM CDT) Only the most recent of54 resultswithin the time period is included. Glucose WB/POC 201(H) 70 - 99 mg/dL 09/25/2024 11:51 AM CDT [facility] Specimen Type Arterial/C apillary 09/25/2024 11:51 AM T [facility] Blood BLOOD SPECIMEN / Unknown 09/25/2024 11:51 AM CDT 09/25/2024 11:51 AM CDT us Guy Messina MD LAB - POINT OF CARE ORDERABL ES Final Result [address] [address], [place] [phone] * (ABNORMAL) HEMOGLOBIN A1C (09/25/2024 5:06 AM CDT) Hemoglobin A1c 5.8(H) <=5.6 % 09/25/2024 8:19 AM T [facility] Estimated Average Glucose 120 mg/dL 09/25/2024 8:19 AM T [facility] Comment: HbA1c Interpretation: Normal : < 5.7% Pre-diabetes: 5.7-6.4% Diabetes: Equal to or greater than 6.5% Test results diagnostic of diabetes should be repeated for confirmation. Treatment target values recommended by ADA and other clinical organizations should be used to evaluate metabolic control in patients. Reference: [place] [employer], Standards of Care in Diabetes -2020 In patients 70 years and older consider HbA1c target range of 7.0-7.5% (Reference: [employer]ain[employer] et al. GREGORYDA. 2012) The [employer] assay for the measurement of HbA1c is a National Glycohemoglobin Standardization Program (NGSP) certified method. Blood BLOOD SPECIMEN / Unknown Lab Venipuncture / Unknown 09/25/2024 5:06 AM CDT 09/25/2024 5:37 AM CDT us Jennifer Winn MD LAB - CHEMISTRY ORDERABLES F inal Result [facility] [address] [place] [id number], [place] [phone] * (ABNORMAL) CBC W AUTO DIFFERENTIAL (09/25/2024 5:06 AM CDT) Only the most recent of6 resultswithin the time period is included. WBC 7.5 4.0 - 10.7 x10E9/L 09/25/2024 5:48 AM [facility] RBC Count 3.41(L) 4.30 - 5.80 x10E12/L 09/25/2024 5:48 AM [facility] Hemoglobin 9.7(L) 13.3 - 17.5 g/dL 09/25/2024 5:48 AM [facility] Hematocrit 30.0(L) 38.7 - 51.1 % 09/25/2024 5:48 AM [facility] MCV 88.0 80.0 - 98.0 fL 09/25/2024 5:48 AM [facility] MCH 28.4 26.7 - 33.6 pg 09/25/2024 5:48 AM [facility] MCHC 32.3 31.7 - 36.3 g/dL 09/25/2024 5:48 AM [facility] RDW-CV 15.8(H) 11.3 - 14.8 % 09/25/2024 5:48 AM [facility] Platelet Count 218 150 - 420 x10E9/L 09/25/2024 5:48 AM [facility] MPV 10.5 7.8 - 11.4 fL 09/25/2024 5:48 AM [facility] Neutrophil % 62.3 41.0 - 74.0 % 09/25/2024 5:48 AM [facility] Lymphocyte % 14.5(L) 17.0 - 47.0 % 09/25/2024 5:48 AM [facility] Monocyte % 18.9(H) 3.0 - 11.0 % 09/25/2024 5:48 AM [facility] Eosinophil % 2.4 0.0 - 7.0 % 09/25/2024 5:48 AM [facility] Basophil % 0.3 0.0 - 1.6 % 09/25/2024 5:48 AM [facility] Immature Granulocytes % 1.6(H) 0.0 - 1.0 % 09/25/2024 5:48 AM [facility] Neutrophil Absolute 4.65 1.60 - 7.50 x10E9/L 09/25/2024 5:48 AM [facility] Lymphocyte Absolute 1.08 1.00 - 4.40 x10E9/L 09/25/2024 5:48 AM [facility] Monocyte Absolute 1.41(H) 0.15 - 1.00 x10E9/L 09/25/2024 5:48 AM [facility] Eosinophil Absolute 0.18 0.00 - 0.60 x10E9/L 09/25/2024 5:48 AM [facility] Basophil Absolute 0.02 0.00 - 0.13 x10E9/L 09/25/2024 5:48 AM [facility] Blood BLOOD SPECIMEN / Unknown Lab Venipuncture / Unknown 09/25/2024 5:06 AM CDT 09/25/2024 5:36 AM T us Alexis Rodrigez III, MD LAB - HEMATOLOGY ORDERA BLES Final Result [facility] [address] [place] [address], [place] [phone] * (ABNORMAL) COMPREHENSIVE METABOLIC PANEL (09/25/2024 5:06 AM [facility]) Only the most recent of8 resultswithin the time period is included. BUN 40(H) 7 - 26 mg/dL 09/25/2024 6:12 AM [facility] Creatinine 11.45(H) 0.71 - 1.16 mg/dL 09/25/2024 6:12 AM [facility] Sodium 135(L) 136 - 145 mmol/L 09/25/2024 6:12 AM [facility] Potassium 3.6 3.5 - 4.5 mmol/L 09/25/2024 6:12 AM [facility] Chloride 96(L) 98 - 107 mmol/L 09/25/2024 6:12 AM [facility] CO2 25 22 - 29 mmol/L 09/25/2024 6:12 AM [facility] Glucose 205(H) 70 - 99 mg/dL 09/25/2024 6:12 AM [facility] Calcium 8.8 8.4 - 10.2 mg/dL 09/25/2024 6:12 AM [facility] Protein Total 5.7(L) 6.0 - 8.3 g/dL 09/25/2024 6:12 AM [facility] Albumin 2.0(L) 3.4 - 5.0 g/dL 09/25/2024 6:12 AM [facility] Bilirubin Total 0.3 0.2 - 1.2 mg/dL 09/25/2024 6:12 AM [facility] Alkaline Phosphatase 94 40 - 150 U/L 09/25/2024 6:12 AM [facility] ALT 9 5 - 55 U/L 09/25/2024 6:12 AM [facility] AST 26 5 - 34 U/L 09/25/2024 6:12 AM [facility] Anion Gap 14 6 - 16 09/25/2024 6:12 AM [facility] BUN/Creatinine Ratio 3(L) 7 - 23 09/25/2024 6:12 AM [facility] Osmolality Calculated 296(H) 275 - 295 mOsm/kg 09/25/2024 6:12 AM [facility] Albumin/Globulin Ratio 0.5(L) 1.1 - 2.3 09/25/2024 6:12 AM [facility] eGFR by CKD-EPI 4(L) >=90 mL/min/1. 73 m2 09/25/2024 6:12 AM [facility] Comment:Estimated Glomerular Filtration Rate (eGFR) calculated using the CKD-EPI Creatinine Equation (2020), per the National Kidney Foundation and [place] [employer]ph[employer] recommendations. Blood BLOOD SPECIMEN / Unknown Lab Venipuncture / Unknown 09/25/2024 5:06 AM CDT 09/25/2024 5:37 AM CDT us Alexis Rodrigez III, MD LAB - CHEMISTRY ORDERAB LES Final Result [address] [address], [place] [phone] * (ABNORMAL) PHOSPHORUS BLOOD (09/25/2024 5:06 AM CDT) Only the most recent of7 resultswithin the time period is included. Phosphorus 5.8(H) 2.8 - 5.1 mg/dL 09/25/2024 6:12 AM T [facility] Blood BLOOD SPECIMEN / Unknown Lab Venipuncture / Unknown 09/25/2024 5:06 AM CDT 09/25/2024 5:37 AM CDT us Alexis Rodrigez III, MD LAB - CHEMISTRY ORDERAB LES Final Result [address] [address], [place] [phone] * MAGNESIUM BLOOD (09/25/2024 5:06 AM CDT) Only the most recent of10 resultswithin the time period is included. Magnesium 1.7 1.6 - 2.6 mg/dL 09/25/2024 6:12 AM [facility] Blood BLOOD SPECIMEN / Unknown Lab Venipuncture / Unknown 09/25/2024 5:06 AM CDT 09/25/2024 5:37 AM CDT us Alexis Rodrigez III, MD LAB - CHEMISTRY ORDERAB LES Final Result [address] [address], [place] [phone] * (ABNORMAL) RENAL FUNCTION PANEL (09/24/2024 7:53 PM CDT) Only the most recent of3 resultswithin the time period is included. BUN 42(H) 7 - 26 mg/dL 09/24/2024 8:47 PM [facility] Creatinine 12.22(H) 0.71 - 1.16 mg/dL 09/24/2024 8:47 PM [facility] Sodium 136 136 - 145 mmol/L 09/24/2024 8:47 PM [facility] Potassium 3.9 3.5 - 4.5 mmol/L 09/24/2024 8:47 PM [facility] Chloride 97(L) 98 - 107 mmol/L 09/24/2024 8:47 PM [facility] CO2 24 22 - 29 mmol/L 09/24/2024 8:47 PM [facility] Glucose 93 70 - 99 mg/dL 09/24/2024 8:47 PM [facility] Albumin 1.8(L) 3.4 - 5.0 g/dL 09/24/2024 8:47 PM [facility] Calcium 8.4 8.4 - 10.2 mg/dL 09/24/2024 8:47 PM [facility] Phosphorus 7.0(H) 2.8 - 5.1 mg/dL 09/24/2024 8:[address] [facility] Anion Gap 15 6 - 16 09/24/2024 8:47 PM CDT [facility] BUN/Creatinine Ratio 3(L) 7 - 23 09/24/2024 8:47 PM CDT [facility] Osmolality Calculated 292 275 - 295 mOsm/kg 09/24/2024 8:47 PM CDT [facility] eGFR by CKD-EPI 4(L) >=90 mL/min/1.7 3 m2 09/24/2024 8:47 PM CDT [facility] Comment:Estimated Glomerular Filtration Rate (eGFR) calculated using the CKD-EPI Creatinine Equation (2020), per the National Kidney Foundation and [place] [employer]ph[employer] recommendations. Blood BLOOD SPECIMEN / Unknown Lab Venipuncture / Unknown 09/24/2024 7:53 PM CDT 09/24/2024 8:15 PM CDT us Guy Messina MD LAB - CHEMISTRY ORDERABLES F inal Result [address] [address], [place] [phone] * TSH REFLEX FREE T4 (09/24/2024 12:02 PM CDT) Pathologist [facility] TSH 1.567 0.350 - 4.940 uIU/mL 09/24/2024 12:57 PM CDT [facility] Blood BLOOD SPECIMEN / Unknown 09/24/2024 12:02 PM CDT 09/24/2024 12:18 PM CDT us Alexis Rodirgez III, MD LAB - CHEMISTRY ORDERAB LES Final Result [address] [address], [place] [phone] * (ABNORMAL) VITAMIN B1 (09/24/2024 12:02 PM CDT) Vitamin B1 Whole Blood 205(H) 70 - 180 nmol/L 09/27/2024 7:16 PM CDT [facility] Comment: INTERPRETIVE INFORMATION: Vitamin B1, Whole Blood This assay measures the concentration of thiamine diphosphate (TDP), the primary active form of vitamin B1. Approximately 90 percent of vitamin B1 present in whole blood is TDP. Thiamine and thiamine monophosphate, which comprise the remaining 10 percent, are not measured. This test was developed and its performance characteristics determined by [facility]. It has not been cleared or approved by the [place] Food and Drug Administration. This test was performed in a CLIA certified laboratory and is intended for clinical purposes. Performed By: [facility] [address] [place] [address] Media Technician: Mk Egan MD, PhD CLIA Number: [id number] Blood BLOOD SPECIMEN / Unknown 09/24/2024 12:02 PM CDT 09/24/2024 12:11 PM CDT Alexis Rodrigez III, MD LAB - CHEMISTRY ORDERAB LES Final Result Performing Organization Address City/[facility]/ZIP Co de Phone Number [facility]) [address] [place] [address] * (ABNORMAL) VITAMIN B12 (09/24/2024 12:02 PM CDT) Pathologist [facility] Vitamin B12 1,151(H) 213 - 816 pg/mL 09/24/2024 12:57 PM CDT [facility] Blood BLOOD SPECIMEN / Unknown 09/24/2024 12:02 PM CDT 09/24/2024 12:18 PM CDT Alexis Rodrigez III, MD LAB - CHEMISTRY ORDERAB LES Final Result [facility] [address] [place] [address], [place] [phone] * (ABNORMAL) TROPONIN-I HIGH SENSITIVE (09/24/2024 5:08 AM CDT) Troponin I High Sensitive 83(H) <=35 ng/L 09/24/2024 6:10 AM CDT [facility] Blood BLOOD SPECIMEN / Unknown Lab Venipuncture / Unknown 09/24/2024 5:08 AM CDT 09/24/2024 5:28 AM CDT us Jennifer Winn MD LAB - CHEMISTRY ORDERABLES F inal Result Performing Organization Address [facility] Co de Phone Number [address] [address], [place] [phone] * (ABNORMAL) TROPONIN-I HIGH SENSITIVE REFLEX 1HOUR (09/24/2024 1:29 AM CDT) Only the most recent of3 resultswithin the time period is included. Troponin I High Sensitive 121(H) <=35 ng/L 09/24/2024 2:[address] [facility] Delta Troponin I HS 09/24/2024 2:[address] [facility] Comment:Delta value intentio tito not calculated. Baseline to 1 hour specimen collection interval exceeded. Blood BLOOD SPECIMEN / Unknown Venipuncture / Unknown 09/24/2024 1:29 AM CDT 09/24/2024 1:43 AM CDT Moon Lewis PA-C LAB - CHEMISTRY ORDERABLES Kenna haider Result Performing Organization Address [facility] Co de Phone Number [address] [address], [place] [phone] * CT Lumbar Spine Wo Contrast (09/23/2024 5:21 PM CDT) Anatomical Region Laterality Modality Spine Computed Tomogra phy 09/23/2024 5:33 PM CDT Impressions 09/23/2024 6:29 PM CDT IMPRESSION: 1.No acute intracranial hemorrhage, midline shift, or significant mass effect. 2.No evidence of acute fracture in the cervical, thoracic, or lumbar spine. 3.Please refer to the concurrent, dedicated body report for findings in the chest, abdomen, and pelvis. Report dictated by Branden Jha MD (vice president quality) 09/23/2024 5:45 PM. > Dictated by Manager Net I, Jaan Clark MD have personally reviewed and interpreted this examination/study. > Interpreting Provider: Jana Clark MD on 09/23/2024 6:29 PM Narrative 09/23/2024 6:29 PM CDT PROCEDURE: CT HEAD WO CONTRAST, CT LUMBAR SPINE WO CONTRAST, CT THORACIC SPINE WO CONTRAST, CT CERVICAL SPINE WO CONTRAST, DATE/TIME OF EXAM: 09/23/2024 5:32 PM, LOCATION [facility] INDICATION: W19.XXXA: Fall, initial encounter R41.82: Altered mental status, unspecified altered mental status type ADDITIONAL CLINICAL INFORMATION: Ordering Provider Reason For Exam: r/o bleed, fx (accession [id number]), r/o fx (accession [id number]), r/o fx (accession [id number]), r/o fx (accession [id number]) Technologist Note: None. Additional: 69 year old male PMH as noted below who presents with fall. The patient is AO x 3 but slow to speech. Present is his today. Patient's states that he has been acting like this since the beginning of August. States he had a history of 4 surgeries very close together and she is concerned that might have been the anesthesia. Patient states that he was being pulled up a ramp in his wheelchair when he was not secured and fell forward off the wheelchair. Denies hitting his head but endorses back pain as he thinks he slid down the back of the chair hitting against it. Patient does have a catheter present that was placed within the last week due to patient history of urinary frequency with incomplete emptying. History of stents placed in lower extremities, patient on Plavix and aspirin thereafter. Patient had his big toe amputated on the left side 1 week ago. is concerned that it is infected today. Denies fevers, chills. Endorsing some chest pain midsternal but also on the right side. They believe that his ribs may be fractured but does also have a cardiac history including CHF. Denies abdominal pain, dysuria, hematuria, changes in bowel movements. Patient was started on amoxicillin yesterday for urinary symptoms however he is only received 1 dose. EXAMINATION: 1.Computed tomography (CT) of the head without contrast 2.CT of the cervical spine without contrast 3.CT of the thoracic spine without contrast 4.CT of the lumbar spine without contrast TECHNIQUE: CT of the head and cervical spine was performed without contrast according to standard protocol. Reformatted axial, sagittal, and coronal images of the thoracic and lumbar spine were obtained by the technologist from a concurrently performed body CT and sent to the workstation for review. CT dose reduction technique was used, including Automated Exposure Control. COMPARISON: No prior study is available for comparison at the time of this dictation. FINDINGS: Head: No acute intra- or extra-axial fluid collections are identified. There is mild cerebral volume loss with associated ex vacuo ventricular dilatation. The basilar cisterns are patent. No mass effect or midline shift is seen. The mallory-white matter differentiation is normal. Linear calcifications seen in the bilateral cerebral hemispheres likely represent chronic vascular opacifications. Additional calcifications are noted in the dentate nuclei in the bilateral basal ganglia which are nonspecific. Periventricular white matter hypoattenuation is indicative of chronic small vessel ischemic disease. There is vascular calcification of the carotid siphons and V4 segments of the vertebral arteries. No acute calvarial fracture is identified. Other than left cataract extractions, the orbits appear normal. There is moderate paranasal sinus disease, worse in the sphenoid sinuses and the ethmoid air cells. There are sinonasal postsurgical changes including ethmoidectomies, turbinectomies, as well as frontal and maxillary sinusotomies, with erosion of the floor of the sella, perhaps likely related to transsphenoidal resection. The mastoid air cells are grossly clear. There are vascular calcifications in the scalp which can be seen in the setting of renal failure. No soft tissue abnormality is identified. Cervical spine: The alignment is normal. The bones are diffusely osteopenic. Vertebral bodies are normal in height without evidence of acute fracture. Other than middle atlantoaxial joint osteoarthritis, the craniocervical junction appears normal. There is moderate degenerative disc disease. Mild multilevel central canal stenosis of the cervical spine. There are varying degrees of mild to moderate facet osteoarthritis. There are varying degrees of mild to moderate uncovertebral joint osteoarthritis with the same degree of neural foraminal stenosis at these levels. There is atherosclerotic calcification of the carotid bifurcations. There is a calcified nodule in the right thyroid lobe. Thoracic spine: The alignment is normal. The bones are osteopenic. Vertebral bodies are normal in height without evidence of acute fracture. There is moderate degenerative disc disease. There are flowing bridging anterior vertebral osteophytes consistent with DISH. No high-grade central canal stenosis is seen. There is mild facet osteoarthritis at multiple levels. No high-grade neural foraminal stenosis is seen. There is atherosclerotic calcification of the thoracic aorta and its branch vessels. There are mitral annular calcifications. There are suspected coronary artery atherosclerotic calcifications. Bilateral indeterminate renal lesions are better characterized on MRI abdomen 08/04/2024. Lumbar spine: The alignment is normal. The bones are mildly osteopenic. Vertebral bodies are normal in height without evidence of acute fracture. There is moderate degenerative disc disease. No high-grade central canal stenosis is seen. There is mild facet osteoarthritis at multiple levels. There are varying degrees of neural foraminal stenosis at multiple levels. Cholecystectomy clips are seen in place. There is atherosclerotic calcification of the abdominal aorta and its branch vessels. Brain injury guidelines: Skull fracture: Subdural hematoma: No subdural hematoma. Epidural hematoma: No epidural hematoma. Intraparenchymal hemorrhage: No intraparenchymal hemorrhage. Subarachnoid hemorrhage: No subarachnoid hemorrhage. Intraventricular hemorrhage: No. Midline shift: No. Procedure Note Jana Clark MD - 09/23/2024 PROCEDURE: CT HEAD WO CONTRAST, CT LUMBAR SPINE WO CONTRAST, CTTHORACIC SPINE WO CONTRAST, CT CERVICAL SPINE WO CONTRAST, DATE/TIME OF EXAM: 09/23/2024 5:32 PM, LOCATION [facility] INDICATION: W19.XXXA: Fall, initial encounter R41.82: Altered mental status, unspecified altered mental status type ADDITIONAL CLINICAL INFORMATION: Ordering Provider Reason For Exam: r/o bleed, fx (accession [id number]), r/o fx (accession [id number]), r/o fx (accession [id number]), r/o fx (accession [id number]) Technologist Note: None. Additional: 69 year old male PMH as noted below who presents with fall. The patient is AO x 3 but slow to speech. Present is his today. Patient's states that he has been acting like this since thebeginning of August. States he had a history of 4 surgeries very close together and she is concerned that might have been the anesthesia. Patient statesthat he was being pulled up a ramp in his wheelchair when he was not securedand fell forward off the wheelchair. Denies hitting his head but endorsesback pain as he thinks he slid down the back of the chair hitting against it. Patient does have a catheter present that was placed within the lastweek due to patient history of urinary frequency with incomplete emptying. History of stents placed in lower extremities, patient on Plavix and aspirin thereafter. Patient had his big toe amputated on the left side1 week ago. is concerned that it is infected today. Denies fevers, chills. Endorsing some chest pain midsternal but also on the right side. They believe that his ribs may be fractured but does also have a cardiac history including CHF. Denies abdominal pain, dysuria, hematuria,changes in bowel movements. Patient was started on amoxicillin yesterday for urinary symptoms however he is only received 1 dose. EXAMINATION: 1.Computed tomography (CT) of the head without contrast 2.CT of the cervical spine without contrast 3.CT of the thoracic spine without contrast 4.CT of the lumbar spine without contrast TECHNIQUE: CT of the head and cervical spine was performed withoutcontrast according to standard protocol. Reformatted axial, sagittal, and coronal images of the thoracic and lumbar spine were obtained by thetechnologist from a concurrently performed body CT and sent to the workstation for review. CT dose reduction technique was used, including AutomatedExposure Control. COMPARISON: No prior study is available for comparison at the time ofthis dictation. FINDINGS: Head: No acute intra- or extra-axial fluid collections are identified. Thereis mild cerebral volume loss with associated ex vacuo ventriculardilatation. The basilar cisterns are patent. No mass effect or midline shift isseen. The mallory-white matter differentiation is normal. Linear calcificationsseen in the bilateral cerebral hemispheres likely represent chronic vascular opacifications. Additional calcifications are noted in the dentatenuclei in the bilateral basal ganglia which are nonspecific. Periventricularwhite matter hypoattenuation is indicative of chronic small vessel ischemic disease. There is vascular calcification of the carotid siphons and V4 segments of the vertebral arteries. No acute calvarial fracture is identified. Other than left cataract extractions, the orbits appearnormal. There is moderate paranasal sinus disease, worse in the sphenoid sinuses and the ethmoid air cells. There are sinonasal postsurgical changes including ethmoidectomies, turbinectomies, as well as frontal andmaxillary sinusotomies, with erosion of the floor of the sella, perhaps likely related to transsphenoidal resection. The mastoid air cells are grossly clear. There are vascular calcifications in the scalp which can be seenin the setting of renal failure. No soft tissue abnormality is identified. Cervical spine: The alignment is normal. The bones are diffusely osteopenic. Vertebral bodies are normal in height without evidence of acute fracture. Otherthan middle atlantoaxial joint osteoarthritis, the craniocervical junction appears normal. There is moderate degenerative disc disease. Mild multilevel central canal stenosis of the cervical spine. There arevarying degrees of mild to moderate facet osteoarthritis. There are varyingdegrees of mild to moderate uncovertebral joint osteoarthritis with the samedegree of neural foraminal stenosis at these levels. There is atherosclerotic calcification of the carotid bifurcations. There is a calcified nodulein the right thyroid lobe. Thoracic spine: The alignment is normal. The bones are osteopenic. Vertebral bodies are normal in height without evidence of acute fracture. There is moderate degenerative disc disease. There are flowing bridging anterior vertebral osteophytes consistent with DISH. No high-grade central canal stenosisis seen. There is mild facet osteoarthritis at multiple levels. Nohigh-grade neural foraminal stenosis is seen. There is atheroscleroticcalcification of the thoracic aorta and its branch vessels. There are mitral annular calcifications. There are suspected coronary artery atherosclerotic calcifications. Bilateral indeterminate renal lesions are better characterized on MRI abdomen 08/04/2024. Lumbar spine: The alignment is normal. The bones are mildly osteopenic. Vertebralbodies are normal in height without evidence of acute fracture. There ismoderate degenerative disc disease. No high-grade central canal stenosis is seen. There is mild facet osteoarthritis at multiple levels. There are varying degrees of neural foraminal stenosis at multiple levels. Cholecystectomy clips are seen in place. There is atherosclerotic calcification of the abdominal aorta and its branch vessels. Brain injury guidelines: Skull fracture: Subdural hematoma: No subdural hematoma. Epidural hematoma: No epidural hematoma. Intraparenchymal hemorrhage: No intraparenchymal hemorrhage. Subarachnoid hemorrhage: No subarachnoid hemorrhage. Intraventricular hemorrhage: No. Midline shift: No. IMPRESSION: 1.No acute intracranial hemorrhage, midline shift, or significant mass effect. 2.No evidence of acute fracture in the cervical, thoracic, or lumbarspine. 3.Please refer to the concurrent, dedicated body report for findings inthe chest, abdomen, and pelvis. Report dictated by Branden Jha MD (vice president quality) 09/23/2024 5:45 PM. > Dictated by Manager Net IJana MD have personally reviewed and interpretedthis examination/study. > Interpreting Provider: Jana Clark MD on 09/23/2024 6:29 PM Moon Lewis PA-C CT ORDERABLES Final Result * CT Thoracic Spine Wo Contrast (09/23/2024 5:21 PM CDT) Anatomical Region Laterality Modality Spine Computed Tomogra phy 09/23/2024 5:33 PM CDT Impressions 09/23/2024 6:29 PM CDT IMPRESSION: 1.No acute intracranial hemorrhage, midline shift, or significant mass effect. 2.No evidence of acute fracture in the cervical, thoracic, or lumbar spine. 3.Please refer to the concurrent, dedicated body report for findings in the chest, abdomen, and pelvis. Report dictated by Branden Jha MD (vice president quality) 09/23/2024 5:45 PM. > Dictated by Manager Net Reese, Jana Clark MD have personally reviewed and interpreted this examination/study. > Interpreting Provider: Jana Clark MD on 09/23/2024 6:29 PM Narrative 09/23/2024 6:29 PM CDT PROCEDURE: CT HEAD WO CONTRAST, CT LUMBAR SPINE WO CONTRAST, CT THORACIC SPINE WO CONTRAST, CT CERVICAL SPINE WO CONTRAST, DATE/TIME OF EXAM: 09/23/2024 5:32 PM, LOCATION [facility] INDICATION: W19.XXXA: Fall, initial encounter R41.82: Altered mental status, unspecified altered mental status type ADDITIONAL CLINICAL INFORMATION: Ordering Provider Reason For Exam: r/o bleed, fx (accession [id number]), r/o fx (accession [id number]), r/o fx (accession [id number]), r/o fx (accession [id number]) Technologist Note: None. Additional: 69 year old male PMH as noted below who presents with fall. The patient is AO x 3 but slow to speech. Present is his today. Patient's states that he has been acting like this since the beginning of August. States he had a history of 4 surgeries very close together and she is concerned that might have been the anesthesia. Patient states that he was being pulled up a ramp in his wheelchair when he was not secured and fell forward off the wheelchair. Denies hitting his head but endorses back pain as he thinks he slid down the back of the chair hitting against it. Patient does have a catheter present that was placed within the last week due to patient history of urinary frequency with incomplete emptying. History of stents placed in lower extremities, patient on Plavix and aspirin thereafter. Patient had his big toe amputated on the left side 1 week ago. is concerned that it is infected today. Denies fevers, chills. Endorsing some chest pain midsternal but also on the right side. They believe that his ribs may be fractured but does also have a cardiac history including CHF. Denies abdominal pain, dysuria, hematuria, changes in bowel movements. Patient was started on amoxicillin yesterday for urinary symptoms however he is only received 1 dose. EXAMINATION: 1.Computed tomography (CT) of the head without contrast 2.CT of the cervical spine without contrast 3.CT of the thoracic spine without contrast 4.CT of the lumbar spine without contrast TECHNIQUE: CT of the head and cervical spine was performed without contrast according to standard protocol. Reformatted axial, sagittal, and coronal images of the thoracic and lumbar spine were obtained by the technologist from a concurrently performed body CT and sent to the workstation for review. CT dose reduction technique was used, including Automated Exposure Control. COMPARISON: No prior study is available for comparison at the time of this dictation. FINDINGS: Head: No acute intra- or extra-axial fluid collections are identified. There is mild cerebral volume loss with associated ex vacuo ventricular dilatation. The basilar cisterns are patent. No mass effect or midline shift is seen. The mallory-white matter differentiation is normal. Linear calcifications seen in the bilateral cerebral hemispheres likely represent chronic vascular opacifications. Additional calcifications are noted in the dentate nuclei in the bilateral basal ganglia which are nonspecific. Periventricular white matter hypoattenuation is indicative of chronic small vessel ischemic disease. There is vascular calcification of the carotid siphons and V4 segments of the vertebral arteries. No acute calvarial fracture is identified. Other than left cataract extractions, the orbits appear normal. There is moderate paranasal sinus disease, worse in the sphenoid sinuses and the ethmoid air cells. There are sinonasal postsurgical changes including ethmoidectomies, turbinectomies, as well as frontal and maxillary sinusotomies, with erosion of the floor of the sella, perhaps likely related to transsphenoidal resection. The mastoid air cells are grossly clear. There are vascular calcifications in the scalp which can be seen in the setting of renal failure. No soft tissue abnormality is identified. Cervical spine: The alignment is normal. The bones are diffusely osteopenic. Vertebral bodies are normal in height without evidence of acute fracture. Other than middle atlantoaxial joint osteoarthritis, the craniocervical junction appears normal. There is moderate degenerative disc disease. Mild multilevel central canal stenosis of the cervical spine. There are varying degrees of mild to moderate facet osteoarthritis. There are varying degrees of mild to moderate uncovertebral joint osteoarthritis with the same degree of neural foraminal stenosis at these levels. There is atherosclerotic calcification of the carotid bifurcations. There is a calcified nodule in the right thyroid lobe. Thoracic spine: The alignment is normal. The bones are osteopenic. Vertebral bodies are normal in height without evidence of acute fracture. There is moderate degenerative disc disease. There are flowing bridging anterior vertebral osteophytes consistent with DISH. No high-grade central canal stenosis is seen. There is mild facet osteoarthritis at multiple levels. No high-grade neural foraminal stenosis is seen. There is atherosclerotic calcification of the thoracic aorta and its branch vessels. There are mitral annular calcifications. There are suspected coronary artery atherosclerotic calcifications. Bilateral indeterminate renal lesions are better characterized on MRI abdomen 08/04/2024. Lumbar spine: The alignment is normal. The bones are mildly osteopenic. Vertebral bodies are normal in height without evidence of acute fracture. There is moderate degenerative disc disease. No high-grade central canal stenosis is seen. There is mild facet osteoarthritis at multiple levels. There are varying degrees of neural foraminal stenosis at multiple levels. Cholecystectomy clips are seen in place. There is atherosclerotic calcification of the abdominal aorta and its branch vessels. Brain injury guidelines: Skull fracture: Subdural hematoma: No subdural hematoma. Epidural hematoma: No epidural hematoma. Intraparenchymal hemorrhage: No intraparenchymal hemorrhage. Subarachnoid hemorrhage: No subarachnoid hemorrhage. Intraventricular hemorrhage: No. Midline shift: No. Procedure Note Jana Clark MD - 09/23/2024 PROCEDURE: CT HEAD WO CONTRAST, CT LUMBAR SPINE WO CONTRAST, CTTHORACIC SPINE WO CONTRAST, CT CERVICAL SPINE WO CONTRAST, DATE/TIME OF EXAM: 09/23/2024 5:32 PM, LOCATION [facility] INDICATION: W19.XXXA: Fall, initial encounter R41.82: Altered mental status, unspecified altered mental status type ADDITIONAL CLINICAL INFORMATION: Ordering Provider Reason For Exam: r/o bleed, fx (accession [id number]), r/o fx (accession [id number]), r/o fx (accession [id number]), r/o fx (accession [id number]) Technologist Note: None. Additional: 69 year old male PMH as noted below who presents with fall. The patient is AO x 3 but slow to speech. Present is his today. Patient's states that he has been acting like this since theginning of August. States he had a history of 4 surgeries very close together and she is concerned that might have been the anesthesia. Patient statesthat he was being pulled up a ramp in his wheelchair when he was not securedand fell forward off the wheelchair. Denies hitting his head but endorsesback pain as he thinks he slid down the back of the chair hitting against it. Patient does have a catheter present that was placed within the lastweek due to patient history of urinary frequency with incomplete emptying. History of stents placed in lower extremities, patient on Plavix and aspirin thereafter. Patient had his big toe amputated on the left side1 week ago. is concerned that it is infected today. Denies fevers, chills. Endorsing some chest pain midsternal but also on the right side. They believe that his ribs may be fractured but does also have a cardiac history including CHF. Denies abdominal pain, dysuria, hematuria,changes in bowel movements. Patient was started on amoxicillin yesterday for urinary symptoms however he is only received 1 dose. EXAMINATION: 1.Computed tomography (CT) of the head without contrast 2.CT of the cervical spine without contrast 3.CT of the thoracic spine without contrast 4.CT of the lumbar spine without contrast TECHNIQUE: CT of the head and cervical spine was performed withoutcontrast according to standard protocol. Reformatted axial, sagittal, and coronal images of the thoracic and lumbar spine were obtained by thetechnologist from a concurrently performed body CT and sent to the workstation for review. CT dose reduction technique was used, including AutomatedExposure Control. COMPARISON: No prior study is available for comparison at the time ofthis dictation. FINDINGS: Head: No acute intra- or extra-axial fluid collections are identified. Thereis mild cerebral volume loss with associated ex vacuo ventriculardilatation. The basilar cisterns are patent. No mass effect or midline shift isseen. The mallory-white matter differentiation is normal. Linear calcificationsseen in the bilateral cerebral hemispheres likely represent chronic vascular opacifications. Additional calcifications are noted in the dentatenuclei in the bilateral basal ganglia which are nonspecific. Periventricularwhite matter hypoattenuation is indicative of chronic small vessel ischemic disease. There is vascular calcification of the carotid siphons and V4 segments of the vertebral arteries. No acute calvarial fracture is identified. Other than left cataract extractions, the orbits appearnormal. There is moderate paranasal sinus disease, worse in the sphenoid sinuses and the ethmoid air cells. There are sinonasal postsurgical changes including ethmoidectomies, turbinectomies, as well as frontal andmaxillary sinusotomies, with erosion of the floor of the sella, perhaps likely related to transsphenoidal resection. The mastoid air cells are grossly clear. There are vascular calcifications in the scalp which can be seenin the setting of renal failure. No soft tissue abnormality is identified. Cervical spine: The alignment is normal. The bones are diffusely osteopenic. Vertebral bodies are normal in height without evidence of acute fracture. Otherthan middle atlantoaxial joint osteoarthritis, the craniocervical junction appears normal. There is moderate degenerative disc disease. Mild multilevel central canal stenosis of the cervical spine. There arevarying degrees of mild to moderate facet osteoarthritis. There are varyingdegrees of mild to moderate uncovertebral joint osteoarthritis with the samedegree of neural foraminal stenosis at these levels. There is atherosclerotic calcification of the carotid bifurcations. There is a calcified nodulein the right thyroid lobe. Thoracic spine: The alignment is normal. The bones are osteopenic. Vertebral bodies are normal in height without evidence of acute fracture. There is moderate degenerative disc disease. There are flowing bridging anterior vertebral osteophytes consistent with DISH. No high-grade central canal stenosisis seen. There is mild facet osteoarthritis at multiple levels. Nohigh-grade neural foraminal stenosis is seen. There is atheroscleroticcalcification of the thoracic aorta and its branch vessels. There are mitral annular calcifications. There are suspected coronary artery atherosclerotic calcifications. Bilateral indeterminate renal lesions are better characterized on MRI abdomen 08/04/2024. Lumbar spine: The alignment is normal. The bones are mildly osteopenic. Vertebralbodies are normal in height without evidence of acute fracture. There ismoderate degenerative disc disease. No high-grade central canal stenosis is seen. There is mild facet osteoarthritis at multiple levels. There are varying degrees of neural foraminal stenosis at multiple levels. Cholecystectomy clips are seen in place. There is atherosclerotic calcification of the abdominal aorta and its branch vessels. Brain injury guidelines: Skull fracture: Subdural hematoma: No subdural hematoma. Epidural hematoma: No epidural hematoma. Intraparenchymal hemorrhage: No intraparenchymal hemorrhage. Subarachnoid hemorrhage: No subarachnoid hemorrhage. Intraventricular hemorrhage: No. Midline shift: No. IMPRESSION: 1.No acute intracranial hemorrhage, midline shift, or significant mass effect. 2.No evidence of acute fracture in the cervical, thoracic, or lumbarspine. 3.Please refer to the concurrent, dedicated body report for findings inthe chest, abdomen, and pelvis. Report dictated by Branden Jha MD (vice president quality) 09/23/2024 5:45 PM. > Dictated by Manager Net I, Jana Clark MD have personally reviewed and interpretedthis examination/study. > Interpreting Provider: Jana Clark MD on 09/23/2024 6:29 PM Moon Lewis PA-C CT ORDERABLES Final Result * CT CERVICAL SPINE WO CONTRAST (09/23/2024 5:21 PM CDT) Anatomical Region Laterality Modality Spine Computed Tomogra phy 09/23/2024 5:33 PM CDT Impressions 09/23/2024 6:29 PM CDT IMPRESSION: 1.No acute intracranial hemorrhage, midline shift, or significant mass effect. 2.No evidence of acute fracture in the cervical, thoracic, or lumbar spine. 3.Please refer to the concurrent, dedicated body report for findings in the chest, abdomen, and pelvis. Report dictated by Branden Jha MD (vice president quality) 09/23/2024 5:45 PM. > Dictated by Manager Net I, Jana Clark MD have personally reviewed and interpreted this examination/study. > Interpreting Provider: Jana Clark MD on 09/23/2024 6:29 PM Narrative 09/23/2024 6:29 PM CDT PROCEDURE: CT HEAD WO CONTRAST, CT LUMBAR SPINE WO CONTRAST, CT THORACIC SPINE WO CONTRAST, CT CERVICAL SPINE WO CONTRAST, DATE/TIME OF EXAM: 09/23/2024 5:32 PM, LOCATION [facility] INDICATION: W19.XXXA: Fall, initial encounter R41.82: Altered mental status, unspecified altered mental status type ADDITIONAL CLINICAL INFORMATION: Ordering Provider Reason For Exam: r/o bleed, fx (accession [id number]), r/o fx (accession [id number]), r/o fx (accession [id number]), r/o fx (accession [id number]) Technologist Note: None. Additional: 69 year old male PMH as noted below who presents with fall. The patient is AO x 3 but slow to speech. Present is his today. Patient's states that he has been acting like this since the beginning of August. States he had a history of 4 surgeries very close together and she is concerned that might have been the anesthesia. Patient states that he was being pulled up a ramp in his wheelchair when he was not secured and fell forward off the wheelchair. Denies hitting his head but endorses back pain as he thinks he slid down the back of the chair hitting against it. Patient does have a catheter present that was placed within the last week due to patient history of urinary frequency with incomplete emptying. History of stents placed in lower extremities, patient on Plavix and aspirin thereafter. Patient had his big toe amputated on the left side 1 week ago. is concerned that it is infected today. Denies fevers, chills. Endorsing some chest pain midsternal but also on the right side. They believe that his ribs may be fractured but does also have a cardiac history including CHF. Denies abdominal pain, dysuria, hematuria, changes in bowel movements. Patient was started on amoxicillin yesterday for urinary symptoms however he is only received 1 dose. EXAMINATION: 1.Computed tomography (CT) of the head without contrast 2.CT of the cervical spine without contrast 3.CT of the thoracic spine without contrast 4.CT of the lumbar spine without contrast TECHNIQUE: CT of the head and cervical spine was performed without contrast according to standard protocol. Reformatted axial, sagittal, and coronal images of the thoracic and lumbar spine were obtained by the technologist from a concurrently performed body CT and sent to the workstation for review. CT dose reduction technique was used, including Automated Exposure Control. COMPARISON: No prior study is available for comparison at the time of this dictation. FINDINGS: Head: No acute intra- or extra-axial fluid collections are identified. There is mild cerebral volume loss with associated ex vacuo ventricular dilatation. The basilar cisterns are patent. No mass effect or midline shift is seen. The mallory-white matter differentiation is normal. Linear calcifications seen in the bilateral cerebral hemispheres likely represent chronic vascular opacifications. Additional calcifications are noted in the dentate nuclei in the bilateral basal ganglia which are nonspecific. Periventricular white matter hypoattenuation is indicative of chronic small vessel ischemic disease. There is vascular calcification of the carotid siphons and V4 segments of the vertebral arteries. No acute calvarial fracture is identified. Other than left cataract extractions, the orbits appear normal. There is moderate paranasal sinus disease, worse in the sphenoid sinuses and the ethmoid air cells. There are sinonasal postsurgical changes including ethmoidectomies, turbinectomies, as well as frontal and maxillary sinusotomies, with erosion of the floor of the sella, perhaps likely related to transsphenoidal resection. The mastoid air cells are grossly clear. There are vascular calcifications in the scalp which can be seen in the setting of renal failure. No soft tissue abnormality is identified. Cervical spine: The alignment is normal. The bones are diffusely osteopenic. Vertebral bodies are normal in height without evidence of acute fracture. Other than middle atlantoaxial joint osteoarthritis, the craniocervical junction appears normal. There is moderate degenerative disc disease. Mild multilevel central canal stenosis of the cervical spine. There are varying degrees of mild to moderate facet osteoarthritis. There are varying degrees of mild to moderate uncovertebral joint osteoarthritis with the same degree of neural foraminal stenosis at these levels. There is atherosclerotic calcification of the carotid bifurcations. There is a calcified nodule in the right thyroid lobe. Thoracic spine: The alignment is normal. The bones are osteopenic. Vertebral bodies are normal in height without evidence of acute fracture. There is moderate degenerative disc disease. There are flowing bridging anterior vertebral osteophytes consistent with DISH. No high-grade central canal stenosis is seen. There is mild facet osteoarthritis at multiple levels. No high-grade neural foraminal stenosis is seen. There is atherosclerotic calcification of the thoracic aorta and its branch vessels. There are mitral annular calcifications. There are suspected coronary artery atherosclerotic calcifications. Bilateral indeterminate renal lesions are better characterized on MRI abdomen 08/04/2024. Lumbar spine: The alignment is normal. The bones are mildly osteopenic. Vertebral bodies are normal in height without evidence of acute fracture. There is moderate degenerative disc disease. No high-grade central canal stenosis is seen. There is mild facet osteoarthritis at multiple levels. There are varying degrees of neural foraminal stenosis at multiple levels. Cholecystectomy clips are seen in place. There is atherosclerotic calcification of the abdominal aorta and its branch vessels. Brain injury guidelines: Skull fracture: Subdural hematoma: No subdural hematoma. Epidural hematoma: No epidural hematoma. Intraparenchymal hemorrhage: No intraparenchymal hemorrhage. Subarachnoid hemorrhage: No subarachnoid hemorrhage. Intraventricular hemorrhage: No. Midline shift: No. Procedure Note Jana Clark MD - 09/23/2024 PROCEDURE: CT HEAD WO CONTRAST, CT LUMBAR SPINE WO CONTRAST, CTTHORACIC SPINE WO CONTRAST, CT CERVICAL SPINE WO CONTRAST, DATE/TIME OF EXAM: 09/23/2024 5:32 PM, LOCATION [facility] INDICATION: W19.XXXA: Fall, initial encounter R41.82: Altered mental status, unspecified altered mental status type ADDITIONAL CLINICAL INFORMATION: Ordering Provider Reason For Exam: r/o bleed, fx (accession [id number]), r/o fx (accession [id number]), r/o fx (accession [id number]), r/o fx (accession [id number]) Technologist Note: None. Additional: 69 year old male PMH as noted below who presents with fall. The patient is AO x 3 but slow to speech. Present is his today. Patient's states that he has been acting like this since thebeginning of August. States he had a history of 4 surgeries very close together and she is concerned that might have been the anesthesia. Patient statesthat he was being pulled up a ramp in his wheelchair when he was not securedand fell forward off the wheelchair. Denies hitting his head but endorsesback pain as he thinks he slid down the back of the chair hitting against it. Patient does have a catheter present that was placed within the lastweek due to patient history of urinary frequency with incomplete emptying. History of stents placed in lower extremities, patient on Plavix and aspirin thereafter. Patient had his big toe amputated on the left side1 week ago. is concerned that it is infected today. Denies fevers, chills. Endorsing some chest pain midsternal but also on the right side. They believe that his ribs may be fractured but does also have a cardiac history including CHF. Denies abdominal pain, dysuria, hematuria,changes in bowel movements. Patient was started on amoxicillin yesterday for urinary symptoms however he is only received 1 dose. EXAMINATION: 1.Computed tomography (CT) of the head without contrast 2.CT of the cervical spine without contrast 3.CT of the thoracic spine without contrast 4.CT of the lumbar spine without contrast TECHNIQUE: CT of the head and cervical spine was performed withoutcontrast according to standard protocol. Reformatted axial, sagittal, and coronal images of the thoracic and lumbar spine were obtained by thetechnologist from a concurrently performed body CT and sent to the workstation for review. CT dose reduction technique was used, including AutomatedExposure Control. COMPARISON: No prior study is available for comparison at the time ofthis dictation. FINDINGS: Head: No acute intra- or extra-axial fluid collections are identified. Thereis mild cerebral volume loss with associated ex vacuo ventriculardilatation. The basilar cisterns are patent. No mass effect or midline shift isseen. The mallory-white matter differentiation is normal. Linear calcificationsseen in the bilateral cerebral hemispheres likely represent chronic vascular opacifications. Additional calcifications are noted in the dentatenuclei in the bilateral basal ganglia which are nonspecific. Periventricularwhite matter hypoattenuation is indicative of chronic small vessel ischemic disease. There is vascular calcification of the carotid siphons and V4 segments of the vertebral arteries. No acute calvarial fracture is identified. Other than left cataract extractions, the orbits appearnormal. There is moderate paranasal sinus disease, worse in the sphenoid sinuses and the ethmoid air cells. There are sinonasal postsurgical changes including ethmoidectomies, turbinectomies, as well as frontal andmaxillary sinusotomies, with erosion of the floor of the sella, perhaps likely related to transsphenoidal resection. The mastoid air cells are grossly clear. There are vascular calcifications in the scalp which can be seenin the setting of renal failure. No soft tissue abnormality is identified. Cervical spine: The alignment is normal. The bones are diffusely osteopenic. Vertebral bodies are normal in height without evidence of acute fracture. Otherthan middle atlantoaxial joint osteoarthritis, the craniocervical junction appears normal. There is moderate degenerative disc disease. Mild multilevel central canal stenosis of the cervical spine. There arevarying degrees of mild to moderate facet osteoarthritis. There are varyingdegrees of mild to moderate uncovertebral joint osteoarthritis with the samedegree of neural foraminal stenosis at these levels. There is atherosclerotic calcification of the carotid bifurcations. There is a calcified nodulein the right thyroid lobe. Thoracic spine: The alignment is normal. The bones are osteopenic. Vertebral bodies are normal in height without evidence of acute fracture. There is moderate degenerative disc disease. There are flowing bridging anterior vertebral osteophytes consistent with DISH. No high-grade central canal stenosisis seen. There is mild facet osteoarthritis at multiple levels. Nohigh-grade neural foraminal stenosis is seen. There is atheroscleroticcalcification of the thoracic aorta and its branch vessels. There are mitral annular calcifications. There are suspected coronary artery atherosclerotic calcifications. Bilateral indeterminate renal lesions are better characterized on MRI abdomen 08/04/2024. Lumbar spine: The alignment is normal. The bones are mildly osteopenic. Vertebralbodies are normal in height without evidence of acute fracture. There ismoderate degenerative disc disease. No high-grade central canal stenosis is seen. There is mild facet osteoarthritis at multiple levels. There are varying degrees of neural foraminal stenosis at multiple levels. Cholecystectomy clips are seen in place. There is atherosclerotic calcification of the abdominal aorta and its branch vessels. Brain injury guidelines: Skull fracture: Subdural hematoma: No subdural hematoma. Epidural hematoma: No epidural hematoma. Intraparenchymal hemorrhage: No intraparenchymal hemorrhage. Subarachnoid hemorrhage: No subarachnoid hemorrhage. Intraventricular hemorrhage: No. Midline shift: No. IMPRESSION: 1.No acute intracranial hemorrhage, midline shift, or significant mass effect. 2.No evidence of acute fracture in the cervical, thoracic, or lumbarspine. 3.Please refer to the concurrent, dedicated body report for findings inthe chest, abdomen, and pelvis. Report dictated by Branden Jha MD (vice president quality) 09/23/2024 5:45 PM. > Dictated by Manager Net IJana MD have personally reviewed and interpretedthis examination/study. > Interpreting Provider: Jana Clark MD on 09/23/2024 6:29 PM Moon Lewis PA-C CT ORDERABLES Final Result * CT HEAD WO CONTRAST (09/23/2024 5:21 PM CDT) Anatomical Region Laterality Modality Head Computed Tomogra phy 09/23/2024 5:33 PM CDT Impressions 09/23/2024 6:29 PM CDT IMPRESSION: 1.No acute intracranial hemorrhage, midline shift, or significant mass effect. 2.No evidence of acute fracture in the cervical, thoracic, or lumbar spine. 3.Please refer to the concurrent, dedicated body report for findings in the chest, abdomen, and pelvis. Report dictated by Branden Jha MD (vice president quality) 09/23/2024 5:45 PM. > Dictated by Manager Net Jana Leigh MD have personally reviewed and interpreted this examination/study. > Interpreting Provider: Jana Clark MD on 09/23/2024 6:29 PM Narrative 09/23/2024 6:29 PM CDT PROCEDURE: CT HEAD WO CONTRAST, CT LUMBAR SPINE WO CONTRAST, CT THORACIC SPINE WO CONTRAST, CT CERVICAL SPINE WO CONTRAST, DATE/TIME OF EXAM: 09/23/2024 5:32 PM, LOCATION [facility] INDICATION: W19.XXXA: Fall, initial encounter R41.82: Altered mental status, unspecified altered mental status type ADDITIONAL CLINICAL INFORMATION: Ordering Provider Reason For Exam: r/o bleed, fx (accession [id number]), r/o fx (accession [id number]), r/o fx (accession [id number]), r/o fx (accession [id number]) Technologist Note: None. Additional: 69 year old male PMH as noted below who presents with fall. The patient is AO x 3 but slow to speech. Present is his today. Patient's states that he has been acting like this since the beginning of August. States he had a history of 4 surgeries very close together and she is concerned that might have been the anesthesia. Patient states that he was being pulled up a ramp in his wheelchair when he was not secured and fell forward off the wheelchair. Denies hitting his head but endorses back pain as he thinks he slid down the back of the chair hitting against it. Patient does have a catheter present that was placed within the last week due to patient history of urinary frequency with incomplete emptying. History of stents placed in lower extremities, patient on Plavix and aspirin thereafter. Patient had his big toe amputated on the left side 1 week ago. is concerned that it is infected today. Denies fevers, chills. Endorsing some chest pain midsternal but also on the right side. They believe that his ribs may be fractured but does also have a cardiac history including CHF. Denies abdominal pain, dysuria, hematuria, changes in bowel movements. Patient was started on amoxicillin yesterday for urinary symptoms however he is only received 1 dose. EXAMINATION: 1.Computed tomography (CT) of the head without contrast 2.CT of the cervical spine without contrast 3.CT of the thoracic spine without contrast 4.CT of the lumbar spine without contrast TECHNIQUE: CT of the head and cervical spine was performed without contrast according to standard protocol. Reformatted axial, sagittal, and coronal images of the thoracic and lumbar spine were obtained by the technologist from a concurrently performed body CT and sent to the workstation for review. CT dose reduction technique was used, including Automated Exposure Control. COMPARISON: No prior study is available for comparison at the time of this dictation. FINDINGS: Head: No acute intra- or extra-axial fluid collections are identified. There is mild cerebral volume loss with associated ex vacuo ventricular dilatation. The basilar cisterns are patent. No mass effect or midline shift is seen. The mallory-white matter differentiation is normal. Linear calcifications seen in the bilateral cerebral hemispheres likely represent chronic vascular opacifications. Additional calcifications are noted in the dentate nuclei in the bilateral basal ganglia which are nonspecific. Periventricular white matter hypoattenuation is indicative of chronic small vessel ischemic disease. There is vascular calcification of the carotid siphons and V4 segments of the vertebral arteries. No acute calvarial fracture is identified. Other than left cataract extractions, the orbits appear normal. There is moderate paranasal sinus disease, worse in the sphenoid sinuses and the ethmoid air cells. There are sinonasal postsurgical changes including ethmoidectomies, turbinectomies, as well as frontal and maxillary sinusotomies, with erosion of the floor of the sella, perhaps likely related to transsphenoidal resection. The mastoid air cells are grossly clear. There are vascular calcifications in the scalp which can be seen in the setting of renal failure. No soft tissue abnormality is identified. Cervical spine: The alignment is normal. The bones are diffusely osteopenic. Vertebral bodies are normal in height without evidence of acute fracture. Other than middle atlantoaxial joint osteoarthritis, the craniocervical junction appears normal. There is moderate degenerative disc disease. Mild multilevel central canal stenosis of the cervical spine. There are varying degrees of mild to moderate facet osteoarthritis. There are varying degrees of mild to moderate uncovertebral joint osteoarthritis with the same degree of neural foraminal stenosis at these levels. There is atherosclerotic calcification of the carotid bifurcations. There is a calcified nodule in the right thyroid lobe. Thoracic spine: The alignment is normal. The bones are osteopenic. Vertebral bodies are normal in height without evidence of acute fracture. There is moderate degenerative disc disease. There are flowing bridging anterior vertebral osteophytes consistent with DISH. No high-grade central canal stenosis is seen. There is mild facet osteoarthritis at multiple levels. No high-grade neural foraminal stenosis is seen. There is atherosclerotic calcification of the thoracic aorta and its branch vessels. There are mitral annular calcifications. There are suspected coronary artery atherosclerotic calcifications. Bilateral indeterminate renal lesions are better characterized on MRI abdomen 08/04/2024. Lumbar spine: The alignment is normal. The bones are mildly osteopenic. Vertebral bodies are normal in height without evidence of acute fracture. There is moderate degenerative disc disease. No high-grade central canal stenosis is seen. There is mild facet osteoarthritis at multiple levels. There are varying degrees of neural foraminal stenosis at multiple levels. Cholecystectomy clips are seen in place. There is atherosclerotic calcification of the abdominal aorta and its branch vessels. Brain injury guidelines: Skull fracture: Subdural hematoma: No subdural hematoma. Epidural hematoma: No epidural hematoma. Intraparenchymal hemorrhage: No intraparenchymal hemorrhage. Subarachnoid hemorrhage: No subarachnoid hemorrhage. Intraventricular hemorrhage: No. Midline shift: No. Procedure Note Jana Clark MD - 09/23/2024 PROCEDURE: CT HEAD WO CONTRAST, CT LUMBAR SPINE WO CONTRAST, CTTHORACIC SPINE WO CONTRAST, CT CERVICAL SPINE WO CONTRAST, DATE/TIME OF EXAM: 09/23/2024 5:32 PM, LOCATION [facility] INDICATION: W19.XXXA: Fall, initial encounter R41.82: Altered mental status, unspecified altered mental status type ADDITIONAL CLINICAL INFORMATION: Ordering Provider Reason For Exam: r/o bleed, fx (accession [id number]), r/o fx (accession [id number]), r/o fx (accession [id number]), r/o fx (accession [id number]) Technologist Note: None. Additional: 69 year old male PMH as noted below who presents with fall. The patient is AO x 3 but slow to speech. Present is his today. Patient's states that he has been acting like this since thebeginning of August. States he had a history of 4 surgeries very close together and she is concerned that might have been the anesthesia. Patient statesthat he was being pulled up a ramp in his wheelchair when he was not securedand fell forward off the wheelchair. Denies hitting his head but endorsesback pain as he thinks he slid down the back of the chair hitting against it. Patient does have a catheter present that was placed within the lastweek due to patient history of urinary frequency with incomplete emptying. History of stents placed in lower extremities, patient on Plavix and aspirin thereafter. Patient had his big toe amputated on the left side1 week ago. is concerned that it is infected today. Denies fevers, chills. Endorsing some chest pain midsternal but also on the right side. They believe that his ribs may be fractured but does also have a cardiac history including CHF. Denies abdominal pain, dysuria, hematuria,changes in bowel movements. Patient was started on amoxicillin yesterday for urinary symptoms however he is only received 1 dose. EXAMINATION: 1.Computed tomography (CT) of the head without contrast 2.CT of the cervical spine without contrast 3.CT of the thoracic spine without contrast 4.CT of the lumbar spine without contrast TECHNIQUE: CT of the head and cervical spine was performed withoutcontrast according to standard protocol. Reformatted axial, sagittal, and coronal images of the thoracic and lumbar spine were obtained by thetechnologist from a concurrently performed body CT and sent to the workstation for review. CT dose reduction technique was used, including AutomatedExposure Control. COMPARISON: No prior study is available for comparison at the time ofthis dictation. FINDINGS: Head: No acute intra- or extra-axial fluid collections are identified. Thereis mild cerebral volume loss with associated ex vacuo ventriculardilatation. The basilar cisterns are patent. No mass effect or midline shift isseen. The mallory-white matter differentiation is normal. Linear calcificationsseen in the bilateral cerebral hemispheres likely represent chronic vascular opacifications. Additional calcifications are noted in the dentatenuclei in the bilateral basal ganglia which are nonspecific. Periventricularwhite matter hypoattenuation is indicative of chronic small vessel ischemic disease. There is vascular calcification of the carotid siphons and V4 segments of the vertebral arteries. No acute calvarial fracture is identified. Other than left cataract extractions, the orbits appearnormal. There is moderate paranasal sinus disease, worse in the sphenoid sinuses and the ethmoid air cells. There are sinonasal postsurgical changes including ethmoidectomies, turbinectomies, as well as frontal andmaxillary sinusotomies, with erosion of the floor of the sella, perhaps likely related to transsphenoidal resection. The mastoid air cells are grossly clear. There are vascular calcifications in the scalp which can be seenin the setting of renal failure. No soft tissue abnormality is identified. Cervical spine: The alignment is normal. The bones are diffusely osteopenic. Vertebral bodies are normal in height without evidence of acute fracture. Otherthan middle atlantoaxial joint osteoarthritis, the craniocervical junction appears normal. There is moderate degenerative disc disease. Mild multilevel central canal stenosis of the cervical spine. There arevarying degrees of mild to moderate facet osteoarthritis. There are varyingdegrees of mild to moderate uncovertebral joint osteoarthritis with the samedegree of neural foraminal stenosis at these levels. There is atherosclerotic calcification of the carotid bifurcations. There is a calcified nodulein the right thyroid lobe. Thoracic spine: The alignment is normal. The bones are osteopenic. Vertebral bodies are normal in height without evidence of acute fracture. There is moderate degenerative disc disease. There are flowing bridging anterior vertebral osteophytes consistent with DISH. No high-grade central canal stenosisis seen. There is mild facet osteoarthritis at multiple levels. Nohigh-grade neural foraminal stenosis is seen. There is atheroscleroticcalcification of the thoracic aorta and its branch vessels. There are mitral annular calcifications. There are suspected coronary artery atherosclerotic calcifications. Bilateral indeterminate renal lesions are better characterized on MRI abdomen 08/04/2024. Lumbar spine: The alignment is normal. The bones are mildly osteopenic. Vertebralbodies are normal in height without evidence of acute fracture. There ismoderate degenerative disc disease. No high-grade central canal stenosis is seen. There is mild facet osteoarthritis at multiple levels. There are varying degrees of neural foraminal stenosis at multiple levels. Cholecystectomy clips are seen in place. There is atherosclerotic calcification of the abdominal aorta and its branch vessels. Brain injury guidelines: Skull fracture: Subdural hematoma: No subdural hematoma. Epidural hematoma: No epidural hematoma. Intraparenchymal hemorrhage: No intraparenchymal hemorrhage. Subarachnoid hemorrhage: No subarachnoid hemorrhage. Intraventricular hemorrhage: No. Midline shift: No. IMPRESSION: 1.No acute intracranial hemorrhage, midline shift, or significant mass effect. 2.No evidence of acute fracture in the cervical, thoracic, or lumbarspine. 3.Please refer to the concurrent, dedicated body report for findings inthe chest, abdomen, and pelvis. Report dictated by Branden Jha MD (vice president quality) 09/23/2024 5:45 PM. > Dictated by Manager Net I, Jana Clark MD have personally reviewed and interpretedthis examination/study. > Interpreting Provider: Jana Clark MD on 09/23/2024 6:29 PM Moon Lewis PA-C CT ORDERABLES Final Result * XR FOOT LEFT 3VW OR MORE (09/23/2024 5:15 PM CDT) Only the most recent of3 resultswithin the time period is included. Anatomical Region Laterality Modality Ankle / Foot Digital Radiogra phy 09/23/2024 5:46 PM CDT Impressions 09/24/2024 9:17 AM CDT IMPRESSION: 1.Amputation of the first great toe at the level of the proximal phalangeal base. 2.No acute bony erosion. Report dictated by Branden Jha MD, (vice president quality). > Dictated by Manager Net I, Nicole Bernabe MD have personally reviewed and interpreted this examination/study. > Interpreting Provider: Nicole Bernabe MD on 09/24/2024 9:17 AM Narrative 09/24/2024 9:17 AM CDT PROCEDURE: XR FOOT LEFT 3VW OR MORE, DATE/TIME OF EXAM: 09/23/2024 5:34 PM, LOCATION [facility] INDICATION: W19.XXXA: Fall, initial encounter ADDITIONAL CLINICAL INFORMATION: Ordering Provider Reason For Exam: r/o osteomyelitis post big toe amputation Technologist Note: Additional: COMPARISON: X-ray foot 09/13/2024 FINDINGS: Amputation of the first great toe at the level of the proximal phalangeal base. No acute bony erosion. The joint spaces are preserved. Bone density and texture are normal. Soft tissue swelling is present. Extensive atherosclerotic vascular calcifications. Procedure Note Nicole Bernabe MD - 09/24/2024 PROCEDURE: XR FOOT LEFT 3VW OR MORE, DATE/TIME OF EXAM: 09/23/2024 5:34PM, LOCATION [facility] INDICATION: W19.XXXA: Fall, initial encounter ADDITIONAL CLINICAL INFORMATION: Ordering Provider Reason For Exam: r/o osteomyelitis post big toe amputation Technologist Note: Additional: COMPARISON: X-ray foot 09/13/2024 FINDINGS: Amputation of the first great toe at the level of the proximalphalangeal base. No acute bony erosion. The joint spaces are preserved. Bonedensity and texture are normal. Soft tissue swelling is present. Extensive atherosclerotic vascular calcifications. IMPRESSION: 1.Amputation of the first great toe at the level of the proximalphalangeal base. 2.No acute bony erosion. Report dictated by Branden Jha MD, (vice president quality). > Dictated by Manager Net I, Nicole Bernabe MD have personally reviewed and interpreted this examination/study. > Interpreting Provider: Nicole Bernabe MD on 09/24/2024 9:17 AM Moon Lewis PA-C DIAGNOSTIC IMAGING ORDERABLES F inal Result * XR CHEST 2VW (09/23/2024 5:15 PM CDT) Anatomical Region Laterality Modality Chest Digital Radiogra phy 09/23/2024 5:49 PM CDT Narrative 09/24/2024 10:46 AM CDT PROCEDURE: XR CHEST 2VW, DATE/TIME OF EXAM: 09/23/2024 5:34 PM, LOCATION [facility] INDICATION: W19.XXXA: Fall, initial encounter ADDITIONAL CLINICAL INFORMATION: Ordering Provider Reason For Exam: r/o rib fx Technologist Note: Additional: COMPARISON: Chest x-ray 09/18/2024 FINDINGS/IMPRESSION: Sternotomy changes. Low lung volumes. There is no focal consolidation, pleural effusion, or pneumothorax.Normal pulmonary vasculature.The cardiomediastinal silhouette is normal. > Dictated by Branden Jha MD, (vice president quality). > Dictated by Manager Net Reese, Santiago Garcia MD have personally reviewed and interpreted this examination/study. > Interpreting Provider: Santiago Garcia MD on 09/24/2024 10:46 AM Procedure Note Santiago Garcia MD - 09/24/2024 PROCEDURE: XR CHEST 2VW, DATE/TIME OF EXAM: 09/23/2024 5:34 PM, LOCATION [facility] INDICATION: W19.XXXA: Fall, initial encounter ADDITIONAL CLINICAL INFORMATION: Ordering Provider Reason For Exam: r/o rib fx Technologist Note: Additional: COMPARISON: Chest x-ray 09/18/2024 FINDINGS/IMPRESSION: Sternotomy changes. Low lung volumes. There is no focal consolidation, pleural effusion, or pneumothorax.Normal pulmonary vasculature.The cardiomediastinalsilhouette is normal. > Dictated by Branden Jha MD, (vice president quality). > Dictated by Manager Net I, Santiago Garcia MD have personally reviewed and interpreted this examination/study. > Interpreting Provider: Santiago Garcia MD on 09/24/2024 10:46 AM Moon Lewis PA-C DIAGNOSTIC IMAGING ORDERABLES F inal Result * (ABNORMAL) TROPONIN-I HIGH SENSITIVE BASELINE + 1HR (09/23/2024 4:52 PM CDT) Only the most recent of3 resultswithin the time period is included. Troponin I High Sensitive 119(H) <=35 ng/L 09/23/2024 5:49 PM CDT [facility] Blood BLOOD SPECIMEN / Unknown Venipuncture / Unknown 09/23/2024 4:52 PM CDT 09/23/2024 4:56 PM CDT Moon Lewis PA-C LAB - CHEMISTRY ORDERABLES Kenna l Result [address] [address], [place] [phone] * (ABNORMAL) C-REACTIVE PROTEIN (09/23/2024 4:52 PM CDT) Only the most recent of2 resultswithin the time period is included. [facility] C-Reactive Protein 1.6(H) <=0.5 mg/dL 09/23/2024 5:42 PM CDT [facility] Blood BLOOD SPECIMEN / Unknown Venipuncture / Unknown 09/23/2024 4:52 PM CDT 09/23/2024 4:56 PM CDT Moon Lewis PA-C LAB - CHEMISTRY ORDERABLES Kenna l Result [address] [address], [place] [phone] * (ABNORMAL) ERYTHROCYTE SEDIMENTATION RATE (09/23/2024 4:52 PM CDT) Only the most recent of2 resultswithin the time period is included. [facility] Erythrocyte Sedimentation Rate Westergren 116(H) 0 - 20 MM/HR 09/23/2024 5:21 PM [facility] Blood BLOOD SPECIMEN / Unknown Venipuncture / Unknown 09/23/2024 4:52 PM CDT 09/23/2024 5:05 PM CDT Moon Lewis PA-C LAB - HEMATOLOGY ORDERABLES Fin al Result [facility] [address] [place] [address], [place] [phone] * (ABNORMAL) DIFFERENTIAL MANUAL (09/23/2024 4:52 PM CDT) Only the most recent of3 resultswithin the time period is included. Pathologist [facility] Neutrophil % 78(H) 41 - 74 % 09/23/2024 5:33 PM [facility] Lymphocyte % 10(L) 17 - 47 % 09/23/2024 5:33 PM [facility] Monocyte % 10 3 - 11 % 09/23/2024 5:33 PM [facility] Eosinophil % 1 0 - 7 % 09/23/2024 5:33 PM [facility] Metamyelocyte % 1(H) 0% % 5:33 PM [facility] Neutrophil Absolute 8.66(H) 1.60 - 7.50 x10E9/L 09/23/2024 5:33 PM [facility] Lymphocyte Absolute 1.11 1.00 - 4.40 x10E9/L 09/23/2024 5:33 PM [facility] Monocyte Absolute 1.11(H) 0.15 - 1.00 x10E9/L 09/23/2024 5:33 PM [facility] Eosinophil Absolute 0.11 0.00 - 0.60 x10E9/L 09/23/2024 5:33 PM [facility] RBC Morphology REVIEWED 09/23/2024 5:33 PM [facility] Microcytosis MODERATE(A) (none) 09/23/2024 5:33 PM [facility] Blood BLOOD SPECIMEN / Unknown Venipuncture / Unknown 09/23/2024 4:52 PM CDT 09/23/2024 5:05 PM CDT Moon Lewis PA-C LAB - HEMATOLOGY ORDERABLES Fin al Result Performing Organization Address [facility] Co de Phone Number [address] [address], [place] [phone] * (ABNORMAL) B-TYPE NATRIURETIC PEPTIDE (09/23/2024 4:52 PM CDT) BNP 370(H) <100 pg/mL 09/23/2024 7:20 PM CDT [facility] Comment: A decision threshold of 100 pg/mL has been demonstrated to provide the maximal combination of sensitivity, specificity and predictive value for the diagnosis of congestive heart failure (CHF). Virtually all patients with no evidence of CHF have BNP values less than 100 pg/mL. A BNP value greater than 100 pg/mL is consistent with the diagnosis of CHF in the appropriate clinical setting. In a study of 693 patients (male and female) with diagnosed CHF, the following values were determined based on the NYHA functional classification system: NYHA Functional Class Mean Valule (pg/mL) % >100 pg/mL I 320 58.1 II 432 73.0 III 656 79.0 IV 1635 98.3 Blood BLOOD SPECIMEN / Unknown Venipuncture / Unknown 09/23/2024 4:52 PM CDT 09/23/2024 5:05 PM CDT Moon Lewis PA-C LAB - CHEMISTRY ORDERABLES Kenna l Result Performing Organization Address City/[facility]/ZIP Co de Phone Number [address] [address], [place] [phone] * XR CHEST 1VW PORTABLE (09/18/2024 5:22 PM CDT) Anatomical Region Laterality Modality Chest Digital Radiogra phy 09/18/2024 6:42 PM CDT Narrative 09/18/2024 6:51 PM CDT PROCEDURE: XR CHEST 1VW PORTABLE, DATE/TIME OF EXAM: 09/18/2024 5:23 PM, LOCATION [facility] INDICATION: R42: Lightheadedness ADDITIONAL CLINICAL INFORMATION: Ordering Provider Reason For Exam: rule out pna Technologist Note: Additional: COMPARISON: Chest x-ray 06/16/2024 FINDINGS/IMPRESSION: Median sternotomy screws. Low lung volumes. Bibasilar opacities likely represent atelectasis, likely from poor lung expansion. No pleural effusion or pneumothorax.Mild pulmonary edema.The cardiomediastinal silhouette is normal for portable technique. > Dictated by Branden Jha MD, (vice president quality). > Dictated by Manager Net I, Junior Hurley MD have personally reviewed and interpreted this examination/study. > Interpreting Provider: Junior Hurley MD on 09/18/2024 6:51 PM Procedure Note Junior Hurley MD - 09/18/2024 PROCEDURE: XR CHEST 1VW PORTABLE, DATE/TIME OF EXAM: 09/18/2024 5:23 PM, LOCATION [facility] INDICATION: R42: Lightheadedness ADDITIONAL CLINICAL INFORMATION: Ordering Provider Reason For Exam: rule out pna Technologist Note: Additional: COMPARISON: Chest x-ray 06/16/2024 FINDINGS/IMPRESSION: Median sternotomy screws. Low lung volumes. Bibasilar opacities likely represent atelectasis,likely from poor lung expansion. No pleural effusion or pneumothorax.Mild pulmonary edema.The cardiomediastinal silhouette is normal for portable technique. > Dictated by Branden Jha MD, (vice president quality). > Dictated by Manager Net I, Junior Hurley MD have personally reviewed and interpreted this examination/study. > Interpreting Provider: Junior Hurley MD on 09/18/2024 6:51PM Gricel Benedict MD DIAGNOSTIC IMAGING ORDERABLES Final Result * (ABNORMAL) CBC W/O DIFFERENTIAL (09/16/2024 1:01 AM CDT) Only the most recent of11 resultswithin the time period is included. WBC 9.3 4.0 - 10.7 x10E9/L 09/16/2024 1:43 AM [facility] RBC Count 3.37(L) 4.30 - 5.80 x10E12/L 09/16/2024 1:43 AM [facility] Hemoglobin 9.5(L) 13.3 - 17.5 g/dL 09/16/2024 1:43 AM [facility] Hematocrit 28.3(L) 38.7 - 51.1 % 09/16/2024 1:43 AM [facility] MCV 84.0 80.0 - 98.0 fL 09/16/2024 1:43 AM [facility] MCH 28.2 26.7 - 33.6 pg 09/16/2024 1:43 AM [facility] MCHC 33.6 31.7 - 36.3 g/dL 09/16/2024 1:43 AM [facility] RDW-CV 15.7(H) 11.3 - 14.8 % 09/16/2024 1:43 AM [facility] Platelet Count 205 150 - 420 x10E9/L 09/16/2024 1:43 AM [facility] MPV 10.3 7.8 - 11.4 fL 09/16/2024 1:43 AM [facility] Blood BLOOD SPECIMEN / Unknown Lab Venipuncture / Unknown 09/16/2024 1:01 AM CDT 09/16/2024 1:40 AM CDT us Alexis Rodrigez III, MD LAB - HEMATOLOGY ORDERA BLES Final Result [facility] [address] [place] [address], [place] [phone] * VANCOMYCIN LEVEL RANDOM (09/15/2024 4:10 PM CDT) Only the most recent of3 resultswithin the time period is included. Pathologist [facility] Vancomycin Random 31.2 Therapeutic Ranges not established for random specimens ug/mL 09/15/2024 6:00 PM CDT [facility] Blood BLOOD SPECIMEN / Unknown Lab Venipuncture / Unknown 09/15/2024 4:10 PM CDT 09/15/2024 4:51 PM CDT Narrative [facility] - 09/15/2024 6:00 PM CDT See institution protocol. us Aureliano Pierce MD LAB - CHEMISTRY ORDERAB LES Final Result [address] [address], [place] [phone] * LACTIC ACID BLOOD (09/14/2024 3:32 PM CDT) Only the most recent of4 resultswithin the time period is included. [facility] Lactic Acid-Stat 2.0 <=2.0 mmol/L 09/14/2024 4:17 PM CDT [facility] Blood BLOOD SPECIMEN / Unknown Lab Venipuncture / Unknown 09/14/2024 3:32 PM CDT 09/14/2024 3:51 PM CDT us Alexis Rodrigez III, MD LAB - CHEMISTRY ORDERAB LES Final Result Performing Organization Address City/[facility]/ZIP Co de Phone Number [address] [address], [place] [phone] * (ABNORMAL) HGB HCT PANEL (09/14/2024 1:24 PM CDT) Only the most recent of2 resultswithin the time period is included. [facility] Hemoglobin 8.7(L) 13.3 - 17.5 g/dL 09/14/2024 1:41 PM CDT [facility] Hematocrit 25.6(L) 38.7 - 51.1 % 09/14/2024 1:41 PM CDT [facility] Blood BLOOD SPECIMEN / Unknown Venipuncture / Unknown 09/14/2024 1:24 PM CDT 09/14/2024 1:30 PM CDT us Alexis Rodrigez III, MD LAB - HEMATOLOGY ORDERA BLES Final Result [facility] [address] [place] [address], [place] [phone] * PATHOLOGY TISSUE (09/14/2024 11:45 AM CDT) Case Report Surgical Pathology Report Case: [id number] Authorizing Provider: Elroy Holcomb MD Collected: 09/14/2024 11:45 AM Ordering Location: [facility] Received: 09/14/2024 12:47 PM Pathologist: Charmaine Myrick MD Specimen: Toe, Left, Left Great Toe 09/16/2024 11:40 AM CDT [facility] Final Diagnosis Toe, left great, amputation (A): - Skin ulceration and necrosis - Acute osteomyelitis - Bone margin negative for acute inflammation - Skin and soft tissue margin appears viable 09/16/2024 11:40 AM CDT [facility] at 1140 CDT Microscopic Description and Comment Microscopic examination substantiates the diagnosis. 09/16/2024 11:40 AM CDT [facility] Clinical History The patient is a 69-year-old man with first toe dry gangrene and history of PAD. 09/16/2024 11:40 AM CDT [facility] Gross Description The requisition and specimen(s) are identified with the patient's name, Grace Interiano. Received in formalin, specimen A, is a 4.5 x 3.2 cm diameter portion of toe without attached nail that has been amputated through the middle phalangeal bone. The entire distal toe is brown-black, mummified with extensive skin peeling that extends to the medial resection margin. There is scant remaining ho-pink friable skin on the dorsal surface. Sectioning shows hemorrhagic and soft underlying soft tissue with extension into the underlying bone. The proximal portion of bone is predominantly ho-pink with scattered hemorrhage. There are no additional gross lesions. Household Worker sections are submitted as follows: A1-skin and soft tissue to resection margin, medial and dorsal surfaces A2-bony resection margin, decalcified A3-partial proximal cross-section with surrounding mummification, decalcified IKD 09/16/2024 11:40 AM CDT [facility] Pathologist Location at [facility] 09/16/2024 11:40 AM CDT [facility] Disclaimer The performance characteristics of all immunohistochemical and indirect immunofluorescence stains (if any) cited in this report were determined by the Histopathology Laboratory of [facility]. Some of these tests were developed by [...] and interpreted by the attending (teaching) pathologist. 09/16/2024 11:40 AM CDT [facility] Embedded Images 09/16/2024 11:40 AM CDT [facility] Amputation, Traumatic (Gross Only) (Toe, Left) 09/14/2024 11:45 AM CDT 09/14/2024 12:47 PM CDT Comment:Pre-op diagnosis: Toe gangrene (HCC) [I96] us Elroy Holcomb MD LAB - PATHOLOGY/CYTOLOGY O RDERABLES Final Result Performing Organization Address City/State/[facility] Co de Phone Number [facility] [address] [phone] * Peripheral Nerve Block (09/14/2024 10:38 AM CDT) Narrative Jose Nicole MD - 09/14/2024 10:38 AM CDT Jose Nicole MD 09/14/2024 10:42 AM Peripheral Nerve Block Procedure: Peripheral Nerve Block Patient Location: Pre-op Preprocedure Section: Indications: at surgeon's request, at patient's request and postop pain management. Pre-anesthetic Checklist: Patient identified, IV Checked, Site examined and clear, Risks and benefits discussed, Surgical consent verified, Monitors and equipment, Time-out performed, Informed consent obtained, Pre-op evaluation done, Questions answered/anesthesia questions answered, Allergies reviewed and Removal hand/wrist jewelry Monitors: BP, Pulse Ox and EKG. Patient Condition: awake Patient Position: sitting Patient Sedated? No Procedure Section Laterality: left Block Performed: Ankle Prep: Chloraprep Strerile Field: gloves, mask, hat/cap and sterile ultrasound sleeve Needle Type: long-bevel Needle Gauge: 27 Needle Length: 50 mm Catheter? No Injection was made incrementally with constant monitoring and aspirations every 5 mL's Injection Assessment: Slow fractionated injection Block Agents or Additives used? Yes Block agents used: bupivacaine PF (MARCAINE PF) 0.5 % injection - Infiltration 15 mL - 09/14/2024 10:39:00 AM lidocaine (XYLOCAINE) 2 % injection - Infiltration 10 mL - 09/14/2024 10:39:00 AM Procedure Tolerance: tolerated well Assessment: completed Procedure Start Time: 09/14/2024 10:35 AM. Procedure End Time: 09/14/2024 10:40 AM. Procedure Total Time: 5 minutes. Staff Section Anesthesia Provider: Linus Simon MD, Performed the procedure Provider #1: Randell Daigle MD, Performed the procedure. Additional Comments: Block performed under direct supervision of the supervising attending who was present and assisted at appropriate periods.. us Olu Taylor DO GENERAL ANESTHESIA ORDERAB LES Final Result * DIFFERENTIAL MANUAL FLUID (09/13/2024 8:08 PM T) Fluid Source Peritoneal 09/13/2024 9:03 PM [facility] Body Fluid Total Cell Count 100 x10E6/L 09/13/2024 9:03 PM [facility] Neutrophils Fluid Percent 11 % 09/13/2024 9:03 PM [facility] Lymphocytes Fluid Percent 6 % 09/13/2024 9:03 PM [facility] Macrophages Fluid Percent 79 % 09/13/2024 9:03 PM [facility] Mesothelial Cells Fluid Percent 4 % 09/13/2024 9:03 PM [facility] Fluid PERITONEAL FLUID / Unknown Collection / Unknown 09/13/2024 8:08 PM CDT 09/13/2024 8:10 PM CDT Narrative [facility] - 09/13/2024 9:03 PM CDT No reference ranges established for body fluid differential cell counts. The test results must be integrated into the clinical context for interpretation. us Alexis Rodrigez III, MD LAB - BODY FLUID ORDERA BLES Final Result Performing Organization Address City/[facility]/ZIP Co de Phone Number [facility] [address] [place] [address], [place] [phone] * CULTURE FLUID+GRAM STAIN (09/13/2024 8:08 PM CDT) Culture No growth MUSHTAQ 09/17/2024 12:[address] [facility] Gram Stain Light Polymorphonuclear cells 09/17/2024 12:[address] [facility] Gram Stain No organisms seen 025 12:[address] [facility] Other PERITONEAL DIALYSATE SPECIMEN / Unknown Collection / Unknown 09/13/2024 8:08 PM CDT 09/13/2024 8:10 PM CDT us Alexis Rodrigez III, MD LAB - MICROBIOLOGY PK ZENG Final Result Performing Organization Address [facility] Co de Phone Number [facility] [address] [place] [address], [place] [phone] * CULTURE ANAEROBE (09/13/2024 8:08 PM CDT) Culture No anaerobic organisms isolated MUSHTAQ 09/19/2024 8:26 AM CDT [facility] Microbiology PERITONEAL DIALYSATE SPECIMEN / Unknown Collection / Unknown 09/13/2024 8:08 PM CDT 09/13/2024 8:11 PM CDT us Alexis Rodrigez III, MD LAB - MICROBIOLOGY PK ZENG Final Result Performing Organization Address City/[facility]/ZIP Co de Phone Number [facility] [address] [place] [address], [place] [phone] * CELL COUNT W DIFFERENTIAL FLUID (09/13/2024 8:08 PM CDT) Fluid Source Peritoneal 09/13/2024 9:03 PM CDT [facility] Fluid Appearance CLEAR 09/13/2024 9:03 PM CDT [facility] Fluid Color YELLOW 09/13/2024 9:03 PM CDT [facility] Total Nucleated Cells Fluid 279 Reference Range Not Established x10E6/L 09/13/2024 9:03 PM CDT [facility] RBC Count Fluid <2,000 Reference Range Not Established x10E6/L 09/13/2024 9:03 PM CDT [facility] Fluid PERITONEAL FLUID / Unknown Collection / Unknown 09/13/2024 8:08 PM CDT 09/13/2024 8:10 PM CDT Narrative [facility] - 09/13/2024 9:03 PM CDT No reference ranges established for body fluid cell counts. Any reference ranges provided are derived from published literature. The test results must be integrated into the clinical context for interpretation. us Alexis Rodrigez III, MD LAB - BODY FLUID ORDERA BLES Final Result [address] [address], [place] [phone] * VAS Bilateral Venous Duplex Le (09/13/2024 4:34 PM CDT) Anatomical Region Laterality Modality Lower Extremity Ultrasound 09/13/2024 4:18 PM CDT Narrative Procedure Note Lalit Castanon MD - 09/13/2024 us Alexis Rodrigez III, MD VASCULAR LAB ORDERABLES Edited Result - Final * (ABNORMAL) BLOOD GASES ABBEY + COOX PANEL (09/13/2024 11:12 AM CDT) pH Venous 7.35 7.32 - 7.42 pH 09/13/2024 11:20 AM [facility] pO2 Venous 54(H) 35 - 40 mmHg 09/13/2024 11:20 AM [facility] pCO2 Venous 40 40 - 50 mmHg 09/13/2024 11:20 AM [facility] HCO3 Venous 22.1 20 - 30 mmol/L 09/13/2024 11:20 AM [facility] Base Excess Venous -3.3(L) -2.0 - 2.0 mmol/L 09/13/2024 11:20 AM [facility] Oxyhemoglobin Venous 84.4 % 08/18 11:20 AM [facility] Deoxyhemoglobin (HHB) Venous % 13.9 % 09/13/2024 11:20 AM [facility] Methemoglobin <0.8 0.0 - 2.0 % 09/13/2024 11:20 AM [facility] Carboxyhemoglobin 1.3 0.0 - 2.0 % 2024 11:20 AM [facility] O2 Content Venous 11.5 Interpret within clinical context ml/dL 09/13/2024 11:20 AM [facility] Hemoglobin by COOX 9.7(L) 12.0 - 17.6 g/dL 09/13/2024 11:20 AM [facility] O2 Saturation Venous 86 >=70 % 08/18 11:20 AM [facility] FI O2 Mixed Venous 33.0 % 2024 11:20 AM [facility] Comment:3l Blood BLOOD SPECIMEN / Unknown Venipuncture / Unknown 09/13/2024 11:12 AM T 09/13/2024 11:16 AM [facility] - 09/13/2024 11:20 AM [facility] Carboxyhemoglobin Normal Concentration: Non-smokers: 0-2%; Smokers: 0-9%; Toxic: >20% us Aureliano Pierce MD LAB - BLOOD GASES ORDER MICHELLE Final Result [facility] [address] [address], [place] [phone] * SARS-COV-2 (COVID-19) RAPID (09/13/2024 6:02 AM CDT) COVID-19 PCR Not detected Not detected 09/14/19 6:36 AM CDT [facility] Microbiology SPECIMEN FROM NASOPHARYNGEAL STRUCTURE / Unknown Collection / Unknown 09/13/2024 6:02 AM CDT 09/13/2024 6:04 AM CDT Narrative [facility] - 09/13/2024 6:36 AM CDT The [employer] Xpert Xpress SARS-COV-2 has been authorized by the Food and Drug Administration (FDA) under an Emergency Use Authorization (EUA). This test has been validated in accordance with the FDA's guidance document Policy for Diagnostic Testing in Laboratories Certified to perform High Complexity Testing under CLIA prior to Emergency Use Authorization for Coronavirus Disease-2019 during the Public Health Emergency issued on April 17, 2019. FDA independent review of this validation is pending. This test is only authorized for the duration of the time the declaration that circumstances exist justifying the authorization of emergency use of in vitro diagnostic tests for detection of SARS-COV-2 virus and/or diagnosis of COVID-19 infection under 564(b) (1) of the Act. 21 U.S.C. 360bbb-3 (b) (1), unless the authorization is terminated or revoked sooner. Fact Sheets for this EUA assay are available upon request. us Yuriy Lopez MD LAB - MICROBIOLOGY ORDERABLE S Final Result [address] [address], [place] [phone] * TRANSFUSE RED BLOOD CELL LEUKOREDUCED UNIT(S) (09/13/2024 4:41 AM CDT) us Yuriy Lopez MD NURSING - BLOOD PROD TRANSFU ERASMO Final Result * (ABNORMAL) LACTIC ACID BLOOD REFLEX TO REPEAT (09/13/2024 3:22 AM CDT) Only the most recent of3 resultswithin the time period is included. Lactic Acid-Stat 2.9(H) <=2.0 mmol/L 09/13/2024 3:55 AM CDT [facility] Blood BLOOD SPECIMEN / Unknown Venipuncture / Unknown 09/13/2024 3:22 AM CDT 09/13/2024 3:29 AM CDT us Savanna Mcfarlane MD LAB - CHEMISTRY ORDERABLES Fi nal Result [facility] [address] [place] [address], [place] [phone] * CT Angio Aorta for Dissection (09/13/2024 12:27 AM CDT) Anatomical Region Laterality Modality Abdomen Computed Tomogra phy 09/13/2024 12:3 0 AM CDT Impressions 09/13/2024 9:42 AM CDT Impression: 1.No aortic dissection, intramural hematoma, penetrating atherosclerotic ulcer, or aneurysm. 2.Enlarged right paratracheal lymph node measures 1.8 cm in short axis. This is mildly enlarged from prior where it measured 1.3 cm on 03/04/2022. Attention on follow-up is recommended. 3.Multiple bilateral indeterminant renal lesions are better characterized on prior MR abdomen dated 08/04/2024. > Dictated by Sera Chowdhury Dr, MD (vice president quality). I, Terry Ramos MD have personally reviewed and interpreted this examination/study. > Interpreting Provider: Terry Ramos MD on 09/13/2024 9:42 AM Narrative 09/13/2024 9:42 AM CDT PROCEDURE: CT ANGIO AORTA FOR DISSECTION, DATE/TIME OF EXAM: 09/13/2024 12:28 AM, LOCATION [facility] INDICATION: R10.9: Abdominal pain, unspecified abdominal location ADDITIONAL CLINICAL INFORMATION: Ordering Provider Reason For Exam: dissection Technologist Note: Additional: COMPARISON: CT abdomen pelvis without contrast dated 06/16/2024. TECHNIQUE: CT of the chest, abdomen, and pelvis was performed prior to and following the uneventful administration of 100 mL of Isovue 370 intravenous contrast according to an angiogram dissection protocol. Three dimensional postprocessing was performed by the technologist and sent to the workstation for review. Findings: Thoracic aorta: Atherosclerotic without aortic dissection, intramural hematoma, penetrating atherosclerotic ulcer, or aneurysm. Thoracic aortic branches: Subclavian arteries: Atherosclerotic but patent without significant focal stenosis. Brachiocephalic artery: Atherosclerotic but patent without significant focal stenosis. Pulmonary artery: Normal. Coronary arteries: Atherosclerotic. Abdominal aorta: No aortic dissection, intramural hematoma, penetrating atherosclerotic ulcer, or aneurysm. Abdominal aortic branches: Celiac axis: Atherosclerotic but patent without significant focal stenosis. Superior mesenteric artery: Atherosclerotic but patent without significant focal stenosis. Inferior mesenteric artery: Patent without significant focal stenosis. Right renal artery: Atherosclerotic with mild multifocal stenoses. Left renal artery: Atherosclerotic but patent without significant focal stenosis. Right common iliac artery: Atherosclerotic but patent without significant focal stenosis. Right internal iliac artery: Atherosclerotic with mild multifocal stenoses. Right external iliac artery: Patent without significant focal stenosis. Left common iliac artery: Atherosclerotic but patent without significant focal stenosis. Left internal iliac artery: Atherosclerotic with mild multifocal stenoses. Left external iliac artery: Atherosclerotic but patent without significant focal stenosis. Chest: Lower Neck and Axillae: Normal. Lungs: Mild bilateral dependent atelectasis is present. No suspicious pulmonary nodules are identified. Calcified granuloma at the right upper lobe. No pleural fluid or pneumothorax is present. Heart and Pericardium: The cardiac chambers are upper limits of normal in size. No pericardial fluid or thickening is present. The coronary arteries are atherosclerotic. Mediastinum and Sandhya: Enlarged right paratracheal lymph node measures 1.8 cm in short axis. Abdomen/pelvis: Liver: The parenchymal appears normal. Mild perihepatic ascites. Gallbladder and Bile Ducts: The gallbladder is absent. Spleen: A 1.4 cm hypoattenuating lesion within the spleen is likely benign. Calcified granuloma within the spleen. Mild perisplenic ascites. Pancreas: Normal. Adrenals: Normal. Kidneys: Multiple cysts are present in bilateral kidneys, some appear complex with hyperdense layering component or wall calcifications and are indeterminate. Gastrointestinal: The stomach and visualized loops of small bowel are unremarkable. Colonic diverticulosis without evidence of diverticulitis is seen. Contrast is seen within the colon. Normal appendix. Mesentery/Peritoneum/Retroperitoneum: A dialysis catheter is seen coiled within the pelvis. Small volume fluid within the pelvis and extending into bilateral paracolic gutters. Bladder: Nondistended. Reproductive Organs: Prostatomegaly. Bones: Bone windows demonstrate no suspicious lytic or blastic lesions. The visible osseous structures are intact. Degenerative changes are seen in the spine. Multiple sternal fixation devices are present. Soft tissues: Normal. Procedure Note Tosha Ramos MD - 09/13/2024 PROCEDURE: CT ANGIO AORTA FOR DISSECTION, DATE/TIME OF EXAM: 09/13/2024 12:28 AM, LOCATION [facility] INDICATION: R10.9: Abdominal pain, unspecified abdominal location ADDITIONAL CLINICAL INFORMATION: Ordering Provider Reason For Exam: dissection Technologist Note: Additional: COMPARISON: CT abdomen pelvis without contrast dated 06/16/2024. TECHNIQUE: CT of the chest, abdomen, and pelvis was performed prior toand following the uneventful administration of 100 mL of Isovue 370intravenous contrast according to an angiogram dissection protocol. Threedimensional postprocessing was performed by the technologist and sent to the workstation for review. Findings: Thoracic aorta: Atherosclerotic without aortic dissection, intramural hematoma, penetrating atherosclerotic ulcer, or aneurysm. Thoracic aortic branches: Subclavian arteries: Atherosclerotic but patent without significantfocal stenosis. Brachiocephalic artery: Atherosclerotic but patent without significant focal stenosis. Pulmonary artery: Normal. Coronary arteries: Atherosclerotic. Abdominal aorta: No aortic dissection, intramural hematoma, penetrating atherosclerotic ulcer, or aneurysm. Abdominal aortic branches: Celiac axis: Atherosclerotic but patent without significant focalstenosis. Superior mesenteric artery: Atherosclerotic but patent withoutsignificant focal stenosis. Inferior mesenteric artery: Patent without significant focal stenosis. Right renal artery: Atherosclerotic with mild multifocal stenoses. Left renal artery: Atherosclerotic but patent without significant focal stenosis. Right common iliac artery: Atherosclerotic but patent withoutsignificant focal stenosis. Right internal iliac artery: Atherosclerotic with mild multifocalstenoses. Right external iliac artery: Patent without significant focal stenosis. Left common iliac artery: Atherosclerotic but patent without significant focal stenosis. Left internal iliac artery: Atherosclerotic with mild multifocalstenoses. Left external iliac artery: Atherosclerotic but patent withoutsignificant focal stenosis. Chest: Lower Neck and Axillae: Normal. Lungs: Mild bilateral dependent atelectasis is present. No suspicious pulmonary nodules are identified. Calcified granuloma at the right upper lobe. No pleural fluid or pneumothorax is present. Heart and Pericardium: The cardiac chambers are upper limits of normal in size. No pericardial fluid or thickening is present. The coronary arteries areatherosclerotic. Mediastinum and Sandhya: Enlarged right paratracheal lymph node measures 1.8 cm in short axis. Abdomen/pelvis: Liver: The parenchymal appears normal. Mild perihepatic ascites. Gallbladder and Bile Ducts: The gallbladder is absent. Spleen: A 1.4 cm hypoattenuating lesion within the spleen is likely benign. Calcified granuloma within the spleen. Mild perisplenic ascites. Pancreas: Normal. Adrenals: Normal. Kidneys: Multiple cysts are present in bilateral kidneys, some appear complexwith hyperdense layering component or wall calcifications and areindeterminate. Gastrointestinal: The stomach and visualized loops of small bowel are unremarkable.Colonic diverticulosis without evidence of diverticulitis is seen. Contrast isseen within the colon. Normal appendix. Mesentery/Peritoneum/Retroperitoneum: A dialysis catheter is seen coiled within the pelvis. Small volume fluid within the pelvis and extending into bilateral paracolic gutters. Bladder: Nondistended. Reproductive Organs: Prostatomegaly. Bones: Bone windows demonstrate no suspicious lytic or blastic lesions. The visible osseous structures are intact. Degenerative changes are seen inthe spine. Multiple sternal fixation devices are present. Soft tissues: Normal. Impression: 1.No aortic dissection, intramural hematoma, penetrating atherosclerotic ulcer, or aneurysm. 2.Enlarged right paratracheal lymph node measures 1.8 cm in short axis. This is mildly enlarged from prior where it measured 1.3 cm on03/04/2022. Attention on follow-up is recommended. 3.Multiple bilateral indeterminant renal lesions are bettercharacterized on prior MR abdomen dated 08/04/2024. > Dictated by Sera Chowdhury Dr, MD (vice president quality). I, Terry Ramos MD have personally reviewed and interpreted this examination/study. > Interpreting Provider: Terry Ramos MD on 09/13/2024 9:42 AM Yuriy Lopez MD CT ORDERABLES Final Result * PREPARE (CROSSMATCH) RBC UNIT(S), 1 Units (09/12/2024 11:30 PM CDT) Unit Description AS1 LR PRBC [facility] Unit ABO O [facility] Unit Rh NEG [facility] Product Number R43 [facility] LO[facility] B[facility] Unit Donor # [id number] [facility] Unit Status transfused [facility] Product Code [id number] [facility] Blood Type Barcode 9500 [facility] Expiration Date [facility] B[facility] Blood Bank BLOOD SPECIMEN / Unknown 09/12/2024 11:30 PM CDT 09/12/2024 11:37 PM CDT Yuriy Lopez MD LAB - BLOOD BANK ORDERABLES Final Result [facility] [address] [place] [address], [place] [phone] * TYPE + SCREEN PANEL (09/12/2024 11:30 PM CDT) [facility] Antibody Screen NEG 12:[address] [facility] ABO Rh O NEG 09/13/2024 12:[address] [facility] Blood Bank BLOOD SPECIMEN / Unknown Venipuncture / Unknown 09/12/2024 11:30 PM CDT 09/12/2024 11:37 PM CDT Yuriy Lopez MD LAB - BLOOD BANK ORDERABLES Final Result [facility] [address] [place] [address], [place] [phone] * CULTURE BLOOD (09/12/2024 10:00 PM CDT) Only the most recent of4 resultswithin the time period is included. [facility] Culture No growth day 5 MUSHTAQ 09/18/2024 1:30 AM CDT [facility] MICRO[facility] Blood PERIPHERAL BLOOD / Unknown Venipuncture / Unknown 09/12/2024 10:00 PM CDT 09/12/2024 10:21 PM CDT us Yuriy Lopez MD LAB - MICROBIOLOGY ORDERABLE S Final Result [facility] MICRO[facility] [address] [place] [address], [place] [phone] * (ABNORMAL) BASIC METABOLIC PANEL (CALCIUM TOTAL) (09/08/2024 10:45 AM CDT) Only the most recent of7 resultswithin the time period is included. BUN 46(H) 7 - 26 mg/dL 09/08/2024 11:55 AM [facility] Creatinine 10.97(H) 0.71 - 1.16 mg/dL 09/08/2024 11:55 AM [facility] Sodium 142 136 - 145 mmol/L 09/08/2024 11:55 AM [facility] Potassium 4.4 3.5 - 4.5 mmol/L 09/08/2024 11:55 AM [facility] Chloride 104 98 - 107 mmol/L 09/08/2024 11:55 AM [facility] CO2 25 22 - 29 mmol/L 09/08/2024 11:55 AM [facility] Glucose 112(H) 70 - 99 mg/dL 09/08/2024 11:55 AM [facility] Calcium 8.9 8.4 - 10.2 mg/dL 09/08/2024 11:55 AM [facility] Anion Gap 13 6 - 16 09/08/2024 11:55 AM [facility] BUN/Creatinine Ratio 4(L) 7 - 23 09/08/2024 11:55 AM [facility] Osmolality Calculated 307(H) 275 - 295 mOsm/kg 09/08/2024 11:55 AM [facility] eGFR by CKD-EPI 5(L) >=90 mL/min/1.7 3 m2 09/08/2024 11:55 AM [facility] Comment:Estimated Glomerular Filtration Rate (eGFR) calculated using the CKD-EPI Creatinine Equation (2020), per the National Kidney Foundation and [place] [employer] of Neph[employer] recommendations. Blood BLOOD SPECIMEN / Unknown Lab Venipuncture / Unknown 09/08/2024 10:45 AM CDT 09/08/2024 11:26 AM CDT Mellissa Freitas PA-C LAB - CHEMISTRY ORDERABLES Final Result [id number] [place] [address], [place] [phone] * VAS Bilateral Venous Mapping (09/07/2024 2:24 PM CDT) Anatomical Region Laterality Modality Upper Extremity, Lower Extremity Ultrasound 09/07/2024 1:53 PM CDT Narrative Procedure Note Elroy Holcomb MD - 09/08/2024 Allen Wing MD VASCULAR LAB ORDERABLES Edite d Result - Final * VAS ARTERIAL ANKLE ARM INDEX (09/06/2024 1:17 PM CDT) Anatomical Region Laterality Modality Ankle / Foot, Upper Extremity Ul trasound 09/06/2024 12:4 8 PM CDT Narrative Procedure Note Lalit Casatnon MD - 09/07/2024 Sarah Mcgraw DO VASCULAR LAB ORDERABLES Edited Result - Final * CT Angio Lower Extremity Left (09/04/2024 2:15 AM CDT) Anatomical Region Laterality Modality Lower Extremity Computed Tomogra phy 09/04/2024 2:24 AM CDT Impressions 09/04/2024 6:26 AM CDT IMPRESSION: 1.Mild to moderate multifocal atherosclerotic stenosis of the 3 vessel leg arteries with patent stent in the proximal anterior tibial artery. Diffuse calcification of the arteries limiting assessment of within the lumen in the distal tibial arteries. 2.Partially visualized peritoneal dialysis catheter. 3.Lower extremity edema is present. Subcutaneous calcifications along the medial aspect of the leg with skin thickening. Report dictated by Freddie Durham MD, (Manager Net). I, Junior Hurley MD have personally reviewed and interpreted this examination/study. > Interpreting Provider: Junior Hurley MD on 09/04/2024 6:26 AM Narrative 09/04/2024 6:26 AM CDT PROCEDURE: CT ANGIO LOWER EXTREMITY LEFT DATE/TIME OF EXAM: 09/04/2024 2:16 AM CLINICAL INFORMATION: None relevant/not provided if blank. Indication: M79.605: Left leg pain COMPARISON: None. TECHNIQUE: CT of the left lower extremity angiogram' was performed after administration of intravenous contrast according to standard protocol. CT dose reduction technique was used, including Automated Exposure Control. IV CONTRAST: IOPAMIDOL 76 % IV SOLN:125 mL FINDINGS: Left internal iliac artery: Atherosclerotic with mild multifocal stenoses. Left external iliac artery: Atherosclerotic but patent without significant focal stenosis. Left common femoral artery: Atherosclerotic with mild multifocal stenoses. Left profunda femoris artery: Atherosclerotic with mild multifocal stenoses. Left superficial femoral artery: Atherosclerotic with mild multifocal stenoses. Left popliteal artery: Atherosclerotic with mild multifocal stenoses. Left anterior tibial artery: Patent stent seen in the proximal anterior tibial artery. Atherosclerotic with moderate multifocal stenoses. This vessel crosses the ankle and supplies the dorsalis pedis artery. Left tibioperoneal trunk: Atherosclerotic with moderate multifocal stenoses. Left posterior tibial artery: Atherosclerotic with moderate multifocal stenoses. This vessel crosses the ankle and supplies the plantar artery. Left peroneal artery: Atherosclerotic with mild multifocal stenoses. Partially visualized peritoneal dialysis catheter. Small fat-containing bilateral inguinal hernia. No acute fracture or dislocation. Trace left suprapatellar joint effusion. Lower extremity edema is present. Subcutaneous calcifications along the medial aspect of the leg with skin thickening. Procedure Note Junior Hurley MD - 09/04/2024 PROCEDURE: CT ANGIO LOWER EXTREMITY LEFT DATE/TIME OF EXAM: 09/04/2024 2:16 AM CLINICAL INFORMATION: None relevant/not provided if blank. Indication: M79.605: Left leg pain COMPARISON: None. TECHNIQUE: CT of the left lower extremity angiogram' was performed after administration of intravenous contrast according to standard protocol. CT dose reduction technique was used, including Automated ExposureControl. IV CONTRAST: IOPAMIDOL 76 % IV SOLN:125 mL FINDINGS: Left internal iliac artery: Atherosclerotic with mild multifocalstenoses. Left external iliac artery: Atherosclerotic but patent withoutsignificant focal stenosis. Left common femoral artery: Atherosclerotic with mild multifocalstenoses. Left profunda femoris artery: Atherosclerotic with mild multifocal stenoses. Left superficial femoral artery: Atherosclerotic with mild multifocal stenoses. Left popliteal artery: Atherosclerotic with mild multifocal stenoses. Left anterior tibial artery: Patent stent seen in the proximal anterior tibial artery. Atherosclerotic with moderate multifocal stenoses. This vessel crosses the ankle and supplies the dorsalis pedis artery. Left tibioperoneal trunk: Atherosclerotic with moderate multifocal stenoses. Left posterior tibial artery: Atherosclerotic with moderate multifocal stenoses. This vessel crosses the ankle and supplies the plantar artery. Left peroneal artery: Atherosclerotic with mild multifocal stenoses. Partially visualized peritoneal dialysis catheter. Small fat-containing bilateral inguinal hernia. No acute fracture or dislocation. Trace left suprapatellar joint effusion. Lower extremity edema is present. Subcutaneous calcifications along the medial aspect of the leg with skin thickening. IMPRESSION: 1.Mild to moderate multifocal atherosclerotic stenosis of the 3 vesselleg arteries with patent stent in the proximal anterior tibial artery.Diffuse calcification of the arteries limiting assessment of within the lumen in the distal tibial arteries. 2.Partially visualized peritoneal dialysis catheter. 3.Lower extremity edema is present. Subcutaneous calcifications alongthe medial aspect of the leg with skin thickening. Report dictated by Freddie Durham MD, (Manager Net). I, Junior Hurley MD have personally reviewed and interpreted this examination/study. > Interpreting Provider: Junior Hurley MD on 56:26 AM us Charmaine Khalil MD CT ORDERABLES Final Result * (ABNORMAL) POTASSIUM WHOLE BLD (09/01/2024 3:54 PM CDT) Potassium Whole Blood 3.1(L) 3.5 - 5.5 mmol/L 09/01/2024 4:[address] [facility] Blood WHOLE BLOOD SPECIMEN / Unknown Venipuncture / Unknown 09/01/2024 3:54 PM CDT 09/01/2024 3:57 PM CDT us Jaqueline Crews INVESTMENT DIRECTOR-CANVAS BASTER LAB - CHEMISTRY ORDERABL ES Final Result [facility] [address] [place] [address], [place] [phone] * CCL STAGED PERC CORONARY INTERVENTION, CCL CORONARY IVUS, CCL CORONARY ATHERECTOMY, CCL TEMPORARY PACEMAKER INSERTION (09/01/2024 2:18 PM CDT) Only the most recent of2 resultswithin the time period is included. Anatomical Region Laterality Modality X-Ray Angiograph y Narrative 09/09/2024 9:23 PM CDT Successful orbital atherectomy and IVUS optimized PCI of distal RCA with LAYLA x1 . Reason for Procedure Patient referred for staged RCA intervention prior to renal transplant work up Procedure Details Estimated Blood Loss: 5 mL Coronary Findings Diagnostic Dominance: Right Left Anterior Descending: Mid LAD lesion is 40% stenosed. Not the culprit lesion. The lesion is not chronically occluded. The lesion was not previously treated. ISR in mid LAD stent First Diagonal Branch: 1st Diag lesion is 99% stenosed. Culprit lesion. The lesion is type C, distal to major branch and concentric. The lesion is not chronically occluded. The lesion was previously treated using a drug-eluting stent and angioplasty. The lesion has in-stent. No thrombosis in the previous stent. Right Coronary Artery: Prox RCA lesion is 40% stenosed. Not the culprit lesion. TELMA flow is 3. Dist RCA lesion is 80% stenosed. Culprit lesion. TELMA flow is 3. The lesion is type C and located at the bend. The lesion is severely calcified. The lesion is not chronically occluded. The lesion was not previously treated. Ultrasound (IVUS) was performed. Severe plaque burden was detected. Intervention Dist RCA lesion: Atherectomy: Performed orbital atherectomy using a Cath Athrcm 135Cm 6Fr 1.25Mm Diamondback catheter and using a [facility] Diamondback 360 Viperwire Adv wire. 2 passes were taken at low speed (80k RPMs) and 1 pass was taken at high speed (120k RPMs). Angioplasty: Pre-stent angioplasty was performed using a BALLOON semi-compliant balloon. Maximum pressure: 14 david. Stent: A Sys Cor Stent Sng Xd Mr 4Mm 24Mm Dlv Sys drug-eluting stent was successfully placed. Maximum pressure: 14 david. Inflation time: 20 sec. Angioplasty: Post-stent angioplasty was performed using a BALLOON non-compliant balloon. Post-Intervention Lesion Assessment: The intervention was successful. The guidewire crossed the lesion. Device was deployed. Post-intervention TELMA flow is 3. There were no complications. Post-PCI ultrasound (IVUS) was performed. Minimal plaque burden was detected. IVUS revealed that the lesion is eccentric. The stent is fully expanded. The stent is fully opposed to the vessel wall. There is a 0% residual stenosis post intervention. Recommendations - Recommend continuing [facility] Cardiology clinic f/u Jaqueline Crews INVESTMENT DIRECTOR-CANVAS BASTER CV CARDIAC CATH CUPID AL OCS Final Result * (ABNORMAL) IRON + TRANSFERRIN PANEL (08/19/2024 1:41 AM CDT) Pathologist [facility] Iron 40(L) 50 - 175 ug/dL 08/19/2024 2:[address] [facility] Transferrin 116(L) 174 - 382 mg/dL 08/19/2024 2:17 AM CDT [facility] Transferrin Saturation % 28 16 - 50 % 08/19/2024 2:17 AM CDT [facility] TIBC Calculated 145(L) 240 - 450 ug/dL 08/19/2024 2:17 AM CDT [facility] Blood BLOOD SPECIMEN / Unknown Lab Venipuncture / Unknown 08/19/2024 1:41 AM CDT 08/19/2024 2:01 AM CDT Hannah Goodman MD LAB - CHEMISTRY ORDERABLES F inal Result [facility] [address] [place] [address], [place] [phone] * (ABNORMAL) FERRITIN (08/19/2024 1:41 AM CDT) Ferritin 560(H) 22 - 275 ng/mL 08/19/2024 2:35 AM CDT [facility] Blood BLOOD SPECIMEN / Unknown Lab Venipuncture / Unknown 08/19/2024 1:41 AM CDT 08/19/2024 2:01 AM CDT Hannah Goodman MD LAB - CHEMISTRY ORDERABLES F inal Result Performing Organization Address City/[facility]/ZIP Co de Phone Number [address] [address], [place] [phone] * VITAMIN D 25-HYDROXY (08/19/2024 1:23 AM CDT) Pathologist [facility] Vitamin D, 25 Hydroxy 36.2 30.0 - 80.0 ng/mL 08/19/2024 2:24 AM CDT [facility] Comment: The recommendations for 25-Hydroxy Vitamin D [...] 1:23 AM CDT 08/19/2024 1:25 AM CDT Hannah Goodman MD LAB - CHEMISTRY ORDERABLES F inal Result [address] [address], [place] [phone] * (ABNORMAL) PTH INTACT W/O CALCIUM (08/19/2024 1:17 AM CDT) PTH Intact 443.9(H) 8.0 - 77.0 pg/mL 08/19/2024 1:57 AM CDT [facility] Blood BLOOD SPECIMEN / Unknown Lab Venipuncture / Unknown 08/19/2024 1:17 AM CDT 08/19/2024 1:17 AM CDT Hannah Goodman MD LAB - CHEMISTRY ORDERABLES F inal Result [facility] [address] [place] [address], [place] [phone] * CCL PERIPHERAL ANGIOGRAM (08/18/2024 2:33 PM CDT) Anatomical Region Laterality Modality X-Ray Angiograph y Narrative 08/19/2024 2:24 PM CDT Left leg angiogram showed left AT severe diffuse disease with multiple subtotal occlusion and left PT severe diffuse disease with WEIGHT CONTROL LECTURER of distal PT without clear reconstitution. Successful [...] 0.018 CXI microcatheter with multiple wires(Command 18/command 14/Clerical Support Specialist 200) to get to great toe branch of dorsalis pedis using balloon pilot [address]. - the AT-DP lesion was dilated with balloons mentioned in figure. - We turn our attention to PT. We crossed the PT WEIGHT CONTROL LECTURER with 0.018 CXI microcatheter with multiple wires (command 18, command 14, Clerical Support Specialist 200) and able to go to lateral [...] using angiography. Left Posterior Tibial: Ost L MARKETING ANALYST to Dist L MARKETING ANALYST lesion is 100% stenosed. Stenosis was measured using angiography. Intervention Ost L ROSETTA to Dist L ROSETTA lesion: Angioplasty: Angioplasty independent of stent deployment was performed using a standard balloon. The balloon used was Cath Balln Emrg Mr Wh 1.5Mm 144Cm 15Mm 2. [...] 10% residual stenosis post intervention. Ost L MARKETING ANALYST to Dist L MARKETING ANALYST lesion: Angioplasty: Angioplasty independent of stent deployment [...] of Plavix. -recommend close follow up with follow up rep and follow up with me in clinic with TWYLA/TBI. us Hannah Goodman MD CV INVASIVE VASCULAR AND IR CUPID PROC Final Result * ACT LR - POCT ([facility]) (08/18/2024 2:08 PM CDT) Only the most recent of5 resultswithin the time period is included. ACT LR 231 See result comments sec 08/19/2024 9:02 AM T [facility] Blood BLOOD SPECIMEN / Unknown 08/18/2024 2:08 PM CDT 08/19/2024 9:02 AM CDT Narrative [facility] - 08/19/2024 9:02 AM CDT ACT-LR [employer] ranges are: Cardiac mobile lab technician = 200-300 seconds Sheath pull [...] From established ranges from the company manual us Hannah Goodman MD LAB - COAGULATION ORDERABLES Final Result [facility] [address] [place] [address], [place] [phone] * MRI ABDOMEN WWO CONTRAST (08/04/2024 12:24 [...] cysts. Report dictated by Alan Cole MD (vice president quality). ITerry MD have personally reviewed and interpreted [...] of the left kidney, not significantly changed, [id number] image 49, series 16 image 41. A [...] cysts. Report dictated by Alan Cole MD (vice president quality). I, Terry Ramos MD have personally reviewed and interpreted this examination/study. > Interpreting Provider: Terry Ramos MD on 08/04/2024 6:23 PM us Thomas Mendoza MD MR ORDERABLES Final Resu lt * EKG 12-LEAD (07/21/2024 10:40 AM CDT) Ventricular Rate 52 BPM [facility] Atrial Rate 52 BPM [facility] P-R Interval 172 ms [facility] QRS Duration ms 112 ms [facility] Q-T Interval ms 550 ms [facility] QTC Calculation (Bezet) 511 ms [facility] Calculated P Oxford 73 degrees [facility] Calculated R Oxford -55 degrees [facility] Calculated T Oxford -56 degrees [facility] Interpretation EKG SINUS BRADYCARDIA LEFT ANTERIOR FASCICULAR BLOCK NONSPECIFIC T WAVE ABNORMALITY PROLONGED QT ABNORMAL ECG NO PREVIOUS ECGS AVAILABLE Confirmed by DEBI GOTTLIEB, МАРИНА ([id number]) on 07/21/2024 3:29:58 PM [facility] 07/21/2024 10:4 0 AM CDT 07/21/2024 3:29 PM CDT Jaqueline Crews INVESTMENT DIRECTOR-CANVAS BASTER ECG ORDERABLES Edited R esult - Final [facility] * HEPATITIS C ANTIBODY (06/16/2024 4:15 PM CDT) Hepatitis C Antibody Non-react sylvie Non-reac tive 06/16/2024 5:[address] [facility] Comment:Hepatitis C Antibody screen indicates no [...] LAB - CHEMISTRY ORDERABLES Fi nal Result [facility] [address] [place] [address], [place] [phone] from Last 3 Months or Most Recently Relevant to Health Maintenance Insurance [employer] AETNA MEDICARE ADV [id number] [place] [address] AETNA MEDICARE ADV * Guarantor: GRACE INTERIANO Account Type Relation to Patient Date of Phone Billing Address Personal/Family [address] [address] * Guarantor: GRACE INTERIANO Account Type Relation to Patient Date of Phone Billing Address Personal/Family [address] [place] [address] * Guarantor: GRACE INTERIANO Account Type Relation to Patient Date of Phone Billing Address Personal/Family Spouse [facility] [address] Advance Directives * Full Code (Latest Code Status on File) Date Activated Date Inactivated Comments 09/24/2024 3:35 AM 09/25/2024 5:09 PM * Full Code Date Activated Date Inactivated Comments 09/13/2024 6:31 AM 09/16/2024 6:51 PM * Full Code Date Activated Date Inactivated Comments 09/04/2024 5:04 AM 09/08/2024 4:13 PM * Full Code Date Activated Date Inactivated Comments 09/01/2024 2:41 PM 09/01/2024 7:09 PM * Full Code Date Activated Date Inactivated Comments 08/18/2024 3:16 PM 08/19/2024 4:36 PM Care Teams Drainlayer Relationship Specialty Start Date End Date Jeff Strickland MD [address] [place] [address] PCP - General 03/05/18 [place] [address] [address] Orthopedic Surgery 03/28/17
--- OUTSIDE RECORDS SUMMARY | 2024-10-01 01:00 | XMS_ITS | Continuity of Care Document ---
Author Organization [facility] Address [address] [place] [address] Phone Care Team Providers Care Telecommunications Clerk Name Role Phone Kee Rodriguez Unavailable Unavailable Procedures Procedure Date Office/outpatient Visit, Est Eye Exam Established Pt Advance Directives Directive Yes / No Effective Date File Name No Information Encounters Encounter Description Practice Location Reason(s) For Visit Diagnoses Date Provider Providers Copied on Encounter Office/outpat ient Visit, Est [facility], [address] [place] [address] [address], [place], [place], [id number], tel:[phone] [facility] No Information Mar-0 2-201 0 Krishnasamy Kee. [address] [facility] [address] [place] [address], [place], [place], [facility][note 3], [place]. tel:[phone] [facility], [address] [place] [address] [address], [place], [place], [id number], tel:[phone] [facility] No Information Nhan-3 0-200 7 David OD Freddy. [address], [place], [place], [facility][note 3], [place]. tel:[phone] Family History Family Member Type Diagnosis Age [...]
--- OUTSIDE RECORDS SUMMARY | 2024-10-01 01:00 | XMS_ITS | Clinical Summary ---
Author Organization [facility] Address [facility] [place] [address] Care Team Providers Care Smoke Room Operator Name Role Phone Jeff Strickland MD [...] by mouth nightly at bedtime. 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
[2024-10-01 02:30] VITALS: BP 117/62; PULSE 62; RESP 14; TEMP 36.6; O2SAT 95
--- NOTE | 2024-10-01 04:54 | ED_ITS ---
HPI - Male Genitourinary General Chief complaint: Urogenital-Male Stated complaint: cath problems Time Seen by Provider: 10/01/24 01:21 History of Present Illness HPI Narrative: 69-year-old male with a recently placed indwelling Key catheter by Urology several days ago. He presents to the ER as he was concerned that was not draining appropriately. Thinks it may have been kinked. Denies any pain and denies any symptoms at this time. No abdominal discomfort. Undergoes peritoneal dialysis at home without difficulty. No other new health issues since recent visit with Urology. No urinary tract infection symptoms. No hematuria or bleeding. No penile discomfort. Related Data Home Medications ?Medication ?Instructions ?Recorded ?Confirmed ?Last Taken ?Type aspirin 81 mg tablet,delayed 81 mg PO HS 02/01/19 09/23/24 08/04/24 History release (Sami Low Dose Aspirin) vit C 250 mg-vit E 200 unit-zinc 1 tablet PO Q12H 02/01/19 09/23/24 08/05/24 History 12.5 mg-copper 1 [id number] tablet (ICaps AREDS2 (copper citrate)) cholecalciferol (vitamin D3) 125 125 mcg PO DAILY 10/01/22 09/23/24 08/05/24 History mcg (5,000 unit) tablet (Vitamin D3) atorvastatin 80 mg tablet 80 mg PO HS 09/02/23 09/23/24 08/04/24 History folic acid 0.8 mg-vit B comp with 800 tablet PO DAILY 04/03/24 09/23/24 08/05/24 History [id number] D3 2,000 unit tablet (Dialyvite 800-Ultra D) insulin aspart U-100 100 unit/mL 1 sliding scale dose subcut TID 04/03/24 09/23/24 08/05/24 History (3 mL) subcutaneous pen (Novolog FlexPen U-100 Insulin aspart) insulin glargine 100 unit/mL (3 35 unit subcut HS 04/03/24 09/23/24 08/04/24 History mL) subcutaneous pen (Basaglar KwikPen U-100 Insulin) lisinopril 20 mg tablet 20 mg PO BID 04/21/24 09/23/24 08/05/24 History blood-glucose transmitter (Dexcom 04/23/24 09/23/24 Unknown History G6 Transmitter device) carvedilol 25 mg tablet 25 mg PO BID 06/17/24 09/23/24 08/05/24 History tamsulosin 0.4 mg capsule 0.4 mg PO HS 06/17/24 09/23/24 08/04/24 History clonidine 0.2 mg/24 hr weekly 1 patch topical WEEKLY 07/25/24 09/23/24 07/23/24 History transdermal patch clopidogrel 75 mg tablet 75 mg PO HS 07/25/24 09/23/24 08/04/24 History furosemide 80 mg tablet 160 mg PO BID 09/23/24 09/23/24 Unknown History nifedipine 30 mg tablet,extended 30 mg PO DAILY 09/23/24 09/23/24 Unknown History release Allergies Allergy/AdvReac Type Severity Reaction Status Date / Time oxycodone AdvReac Unknown Hallucinati Verified 09/30/24 22:26 ng Review of Systems Review of Systems: As reviewed above in [facility] Past Medical History Medical History Chronic diarrhea Family history of colon cancer in father Chronic ethmoidal sinusitis Nasal congestion Bilateral impacted cerumen Allergic rhinitis Chronic sinusitis Chronic recurrent sinusitis Hypertensive CHF C. difficile colitis Arthritis Kidney stones Benign prostatic hyperplasia Coronary artery disease End-stage renal disease on peritoneal dialysis Obstructive sleep apnea Insulin dependent type 2 diabetes mellitus Renal cell carcinoma Status post partial left nephrectomy. Dyslipidemia Clostridium difficile infection Gastroesophageal reflux disease Depression with anxiety Hypothyroidism Cirrhosis Pituitary tumor Status post resection. Anemia Chronic diastolic (congestive) heart failure Hypertension Surgical History Surgical History History of open reduction and internal fixation (ORIF) procedure (11/2022) Screw fixation of sternal fracture. History of colonoscopy with polypectomy History of umbilical hernia repair History of inguinal hernia repair History of coronary artery stent placement History of cardiac catheterization (08/2020) Stent x2 to the LAD. History of arthroplasty of right knee History of cataract extraction History of pituitary surgery (11/2021) History of partial nephrectomy Partial left nephrectomy for renal cell carcinoma. History of cholecystectomy (2007) Family History Family History Mother Aneurysm Hypertension Cerebrovascular accident Heart murmur Father Carcinoma of colon Social History Social History Social History: Surrogate medical decision maker: Harriet Carl, spouse. Code status: Full code. Smoking status: Never smoker Second hand tobacco smoke exposure: No Alcohol intake: never Alcohol use details: rare, holidays Substance use: never Substance use type: does not use Do You Feel Safe in your Home?: Yes Lack of Transportation: No Lack of Food: Never True Current Housing: I Have Housing Concerned About Future Housing: No Difficulty Paying Gas/Electric Bills: No Difficulty Paying for Meds: No Currently Unemployed: No Education: Trade/Vocational Certificate Difficulty w/ Childcare or Family Care: No Living arrangements: with family Additional living arrangements comments: Lives with spouse in [place]. Occupation/Education: retired Additional occupation/education comments: [employer]. Spiritual care concerns: No Agree to blood products: Yes Exam Narrative: GENERAL: Chronically ill-appearing but not in any distress HEAD: [Normocephalic, atraumatic.] EYES: [PERRLA and EOMI.] ENT: Nares clear, no rhinorrhea or epistaxis. Mucous membranes moist. NECK: Supple. CHEST: [Clear to auscultation. No respiratory distress.] HEART: [Regular rate and rhythm]. No murmur heard. [Normal peripheral pulses.] ABDOMEN: Soft and nontender, peritoneal dialysis catheter in place without any signs of malfunction or overlying skin changes, no rigidity. Urinary catheter Key in place without any ulceration or bleeding. EXTREMITIES: Normal range of motion. [No edema.] SKIN: Warm, dry, no rash. NEURO: [No focal deficits]. Alert and oriented [x3.] PSYCH: [Normal mood and affect.] Course Vital Signs Vital signs: Vital Signs Temperature 37.2 C 09/30/24 22:27 Pulse Rate 66 09/30/24 22:27 Respiratory Rate 19 09/30/24 22:27 Blood Pressure 103/60 09/30/24 22:27 Pulse Oximetry 100 09/30/24 22:27 Oxygen Delivery Room Air 09/30/24 22:27 Temperature 37.2 C 09/30/24 22:27 Pulse Rate 66 09/30/24 22:27 Respiratory Rate 19 09/30/24 22:27 Blood Pressure 103/60 09/30/24 22:27 Pulse Oximetry 100 09/30/24 22:27 Oxygen Delivery Room Air 09/30/24 22:27 MDM - Male Genitourinary MDM Narrative Medical decision making narrative: 69-year-old male with a recently placed indwelling Key catheter by Urology several days ago. He presents to the ER as he was concerned that was not draining appropriately. Thinks it may have been kinked. Denies any pain and denies any symptoms at this time. No abdominal discomfort. Undergoes peritoneal dialysis at home without difficulty. No other new health issues since recent visit with Urology. No urinary tract infection symptoms. No hematuria or bleeding. No penile discomfort. Patient overall is in his normal state of health, afebrile with normal vital signs here in triage. Given concerns for catheter malfunction the catheter was inspected and flushed and had good irrigation and return of clear fluid without any difficulty. Draining appropriately. Patient denies any urinary symptoms and has no fever or tachycardia, back pain or flank pain. No signs of UTI. Patient is safe for discharge back to home and will follow-up with his urologist for removal on outpatient basis. Medical Records Attestation: I reviewed the patient's medical records. Discharge Plan Discharge Clinical Impression: Malfunction of Key catheter Patient Disposition: Home Condition: Stable Instructions: Antibiotic Form Additional Instructions: Catheter no longer malfunctioning, follow-up with Urology for removal. Return with any emergent concerns or recurrent symptoms. Patient Language: [place] Prescriptions: No Action aspirin [Sami Low Dose Aspirin] 81 mg Tablet,Delayed Release (Dr/Ec) 81 mg PO HS ICaps AREDS2 (copper citrate) 250 mg-200 unit -12.5 mg-1 mg Tablet 1 tablet PO Q12H pantoprazole 40 mg tablet,delayed release (DR/EC) 40 mg PO QAM Qty: 30 3RF lipase 60,000-protease 189,600-amylase 252,600 unit capsule, delay rel 60,000-189,600- 252,600 unit capsule,delayed release(DR/EC) 0RF Patient Comments: PATIENT IS SUPPOSE TO TAKE IT TAKE IT TWICE A DAY WITH MEALS (DME) Dexcom G6 Transmitter Device See Rx Instructions .Route Rx Instructions: As directed gabapentin 100 mg tablet 100 mg PO BID Qty: 60 1RF nifedipine 30 mg tablet extended release 30 mg PO DAILY lanthanum 1,000 mg tablet,chewable 1,000 mg PO TID Qty: 1 0RF Rx Instructions: administer with food; chew thoroughly before swallowing furosemide 80 mg tablet 160 mg PO BID lisinopril 20 mg tablet 20 mg PO BID cholecalciferol (vitamin D3) [Vitamin D3] 125 mcg (5,000 unit) Tablet 125 mcg PO DAILY atorvastatin 80 mg tablet 80 mg PO HS carvedilol 25 mg tablet 25 mg PO BID tamsulosin 0.4 mg capsule 0.4 mg PO HS Dialyvite 800-Ultra D 0.8-2,000 mg-unit tablet 800 tablet PO DAILY insulin aspart U-100 [Novolog FlexPen U-100 Insulin] 100 unit/mL (3 mL) insulin pen 1 sliding scale dose subcut TID Patient Comments: PATIENT TAKES 5 UNITS WITH MEALS SCHEDULED AND GOES UP TO 15 UNITS IF IT GETS TO 300 insulin glargine [Basaglar KwikPen U-100 Insulin] 100 unit/mL (3 mL) insulin pen 35 unit subcut HS Patient Comments: 40 UNITS IN MORNING clonidine 0.2 mg/24 hr patch weekly 1 patch topical WEEKLY clopidogrel 75 mg tablet 75 mg PO HS levothyroxine 112 mcg tablet 112 mcg PO DAILY Qty: 90 2RF lorazepam [Ativan] 0.5 mg tablet 0.5 mg PO DAILY PRN (Reason: Anxiety) Qty: 30 0RF hydrocodone-acetaminophen 5-325 mg tablet 1 tablet PO Q6H PRN (Reason: pain) Qty: 30 0RF Follow-up/Referrals: Jeff Strickland MD [Primary Care Provider] -
== END 2024-10-01 04:56 | disposition home or self-care (01) ==
PROVIDERS: Emergency Provider Student in an Organized Health Care Education/Training Program; PCP Family Medicine
DX: T83.091A Other mechanical complication of indwelling urethral catheter, initial encounter (principal); Y84.6 Urinary catheterization as the cause of abnormal reaction of the patient, or of later complication, without mention of misadventure at the time of the procedure; J32.2 Chronic ethmoidal sinusitis; I50.32 Chronic diastolic (congestive) heart failure; I13.2 Hypertensive heart and chronic kidney disease with heart failure and with stage 5 chronic kidney disease, or end stage renal disease; E11.22 Type 2 diabetes mellitus with diabetic chronic kidney disease; N18.6 End stage renal disease; Z99.2 Dependence on renal dialysis; I25.10 Atherosclerotic heart disease of native coronary artery without angina pectoris; E78.5 Hyperlipidemia, unspecified; E03.9 Hypothyroidism, unspecified; K74.60 Unspecified cirrhosis of liver; K21.9 Gastro-esophageal reflux disease without esophagitis; N40.0 Benign prostatic hyperplasia without lower urinary tract symptoms; M19.90 Unspecified osteoarthritis, unspecified site; G47.33 Obstructive sleep apnea (adult) (pediatric); F41.8 Other specified anxiety disorders; Z96.651 Presence of right artificial knee joint; Z95.5 Presence of coronary angioplasty implant and graft; Z85.528 Personal history of other malignant neoplasm of kidney; Z87.442 Personal history of urinary calculi; Z86.0100 Personal history of colon polyps, unspecified; Z90.5 Acquired absence of kidney; Z90.49 Acquired absence of other specified parts of digestive tract; Z98.49 Cataract extraction status, unspecified eye; Z79.82 Long term (current) use of aspirin; Z79.899 Other long term (current) drug therapy; Z79.4 Long term (current) use of insulin; Z79.02 Long term (current) use of antithrombotics/antiplatelets
CPT/HCPCS: 51702; 99282; 99283

== ENCOUNTER 2024-10-30 19:23 | Emergency (ER) | payer MEDICARE, SELFPAY ==
--- OUTSIDE RECORDS SUMMARY | 2009-04-18 10:00 | XMS_ITS | Continuity of Care Document ---
Author Organization [facility] Address [address] [place] [address] Phone Care Team Providers Care Well Logging Captain Mud Analysis Name Role Phone Kee Rodriguez Unavailable Unavailable Procedures Procedure Date Office/outpatient Visit, Est Eye Exam Established Pt Advance Directives Directive Yes / No Effective Date File Name No Information Encounters Encounter Description Practice Location Reason(s) For Visit Diagnoses Date Provider Providers Copied on Encounter Office/outpat ient Visit, Est [facility], [address] [place] [address] [address], [place], [place], [address], tel:[phone] SEC [facility] No Information Mar-0 2-201 0 Krishnasamy Kee. [address] [facility] [place] [address], [place], [place], [facility], [place]. tel:[phone] [facility], [address] [place] [address] [address], [place], [place], [address], tel:[phone] SEC [facility] No Information Nhan-3 0-200 7 David OD Freddy. [address], [place], [place], [facility], [place]. tel:[phone] Family History Family Member Type Diagnosis Age At Onset No Information Payers Payer name Insurance type Covered alliance party ID Authoriza tion(s) No Information Social [...]
--- OUTSIDE RECORDS SUMMARY | 2009-04-18 10:00 | XMS_ITS | Continuity of Care Document ---
Author Organization [facility] Address [address] [place] [address] Phone Care Team Providers Care Orthodontic Band Maker Name Role Phone Kee Rodriguez Unavailable Unavailable Procedures Procedure Date Office/outpatient Visit, Est Eye Exam Established Pt Advance Directives Directive Yes / No Effective Date File Name No Information Encounters Encounter Description Practice Location Reason(s) For Visit Diagnoses Date Provider Providers Copied on Encounter Office/outpat ient Visit, Est [facility], [address] [place] [address] [address], [place], [place], [address], tel:[phone] SEC [facility] No Information Mar-0 2-201 0 Krishnasamy Kee. [address] [facility] [place] [address], [place], [place], [facility], [place]. tel:[phone] [facility], [address] [place] [address] [address], [place], [place], [address], tel:[phone] SEC [facility] No Information Nhan-3 0-200 7 David OD Freddy. [address], [place], [place], [facility], [place]. tel:[phone] Family History Family Member Type Diagnosis Age [...]
--- OUTSIDE RECORDS SUMMARY | 2023-09-09 06:59 | XMS_ITS | Continuity of Care Document ---
Author Organization [employer] [place] Address [address] [facility] [address] [place] [address] Phone Care Team Providers Care Direct Mail Coordinator Name Role Phone Olu Payan Unavailable Unavailable [...] Diagnoses Date Provider Providers Copied on Encounter [facility], [place], [place], [id number], tel:[phone] [place] No Information 4 Gladis Olu[address] [place] [address], [address], [place], [place], [facility], . tel: [phone] [address] [place] [address], [place], [place], [address], tel:[phone] [place] No Information 4 Genoveva Mcdonald. . Referring Provider: Jeff Strickland [address] [place] [address] [address], [place], [place], [facility]. tel:[phone] [place] [address], [place], [place], [address], tel:[phone] [place] No Information 4 Gladis Olu. [address] [place] [address], [address], [place], [facility], . tel: [phone] Referring Provider: Yanira Chin [facility] [address], [place], [facility]. tel:[phone] [address] [address], [place], [place], [address], tel:[phone] [place] No Information 4 Gladis Raines. [address] [place] [address], [address], [place], [facility], . tel: [phone] Referring Provider: Yanira Chin [facility] [address], [place], [address]. tel:[phone], [id number], tel:[phone] [place] No Information 4 Jacinto Fairchild. . Referring Provider: Yanira Chin [facility] [address], [place], [address]. tel:[phone] [address], [place], [place], [address], [place] tel:[phone] [place] No Information 4 Jacinto Fairchild. . Referring Provider: Jeff Strickland [address] [place] [address] 162 [address], [place], [facility]. tel:[phone], [address], tel:[phone] [place] No Information 4 Genoveva Mcdonald. . Referring Provider: Jeff Strickland [address] [place] [address] 162 [address], [place], [facility]. tel:[phone], [id number], tel:[phone] [place] No Information 4 Gladis Raines. [address] [facility], [address], [place], [facility], . tel: [phone] Referring Provider: Jeff Strickland [address] [place] [address] [address], [place], [facility]. tel:[phone], [id number], tel:[phone] [place] No Information 0 4 Genoveva Mcdonald. . Referring Provider: Jeff Strickland [address] [place] [address] 162 [address], [place], [facility]. tel:[phone], [place], [address], [place] tel:[phone] [place] No Information 0 4 Gladis Raines. [address] [facility], [address], [place], [facility], . tel: [phone] Referring Provider: Jeff Strickland [address] [place] [address] [address], [place], [facility]. tel:[phone] Family History Family Member Type Diagnosis Age At Onset No Information Payers Payer name Insurance type Covered green party ID Diego suarez(ernesto Hadley [id number] Social History Type Description Quantity Date Captured [...]
--- OUTSIDE RECORDS SUMMARY | 2023-09-09 06:59 | XMS_ITS | Continuity of Care Document ---
Author Organization [employer] [place] Address [address] [place] [address] Phone Care Team Providers Care Body Bumper Name Role Phone Olu Payan Unavailable Unavailable [...] Diagnoses Date Provider Providers Copied on Encounter [facility], [place], [place], [id number], tel:[phone] [place] No Information 4 Gladis Olu. [address] [place] [address], [address], [place], [place], [facility], . tel: [phone] [address] [place] [address], [place], [place], [id number], tel:[phone] [place] No Information 4 Genoveva Mcdonald. . Referring Provider: Jeff Strickland [address] [place] [address] [address], [place], [place], [facility]. tel:[phone] [address], [place], [place], [id number], tel:[phone] [place] No Information 4 Gladis Olu. [address] [place] [address], [address], [place], [place], [facility], . tel: [phone] Referring Provider: Yanira Chin [facility] [address], [place], [place], [facility]. tel:[phone] [address] [address], [place], [place], [id number], tel:[phone] [place] No Information 4 Gladis Raines. [address] [place] [address], [address], [place], [place], [facility], . tel: [phone] Referring Provider: Yanira Chin [facility] [address], [place], [address]. tel:[phone], [id number], tel:[phone] [place] No Information 4 Jacinto Fairchild. . Referring Provider: Yanira Chin [facility] [address], [place], [address]. tel:[phone] [address], [place], [place], [id number], [place] tel:[phone] [place] No Information 4 Jacinto Fairchild. . Referring Provider: Jeff Strickland [address] [place] [address] [address], [place], [place], [facility]. tel:[phone], [id number], tel:[phone] [place] No Information 4 Genoveva Mcdonald. . Referring Provider: Jeff Strickland [address] [place] [address] [address], [place], [place], [facility]. tel:[phone], [id number], tel:[phone] [place] No Information 4 Gladis Raines. [address] [facility], [address], [place], [facility], . tel: [phone] Referring Provider: Jeff Strickland [address] [place] [address] [address], [place], [place], [facility]. tel:[phone], [id number], tel:[phone] [place] No Information 0 4 Genoveva Mcdonald. . Referring Provider: Jeff Strickland [address] [place] [address] [address], [place], [place], [facility]. tel:[phone], [place], [id number], [place] tel:[phone] [place] No Information 0 4 Gladis Raines. [address] [facility], [address], [place], [place], [facility], . tel: [phone] Referring Provider: Jeff Strickland [address] [place] [address] [address], [place], [place], [facility]. tel:[phone] Family History Family Member Type Diagnosis Age At Onset No Information Payers Payer name Insurance type Covered libertarian ID Diego suarez(ernesto Hadley [id number] Social History Type Description Quantity Date Captured [...]
--- OUTSIDE RECORDS SUMMARY | 2024-02-03 06:45 | XMS_ITS ---
Author Organization [facility] Address [address] [facility] [place] [address] Care Team Providers Care Milk Drying Machine Operator Name Role Phone DONNIE WOOD MD Primary Care Provider Lance Sergio Trujillo Unavailable [phone] ALLERGIES No Known Allergies REASON FOR VISIT [...] retired. 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 John's, [place]'s and Gaenslen's are positive bilaterally. There is [...]
--- OUTSIDE RECORDS SUMMARY | 2024-03-03 06:30 | XMS_ITS ---
Author Organization [facility] Address [address] [place] [address] [place] [address] Care Team Providers Care Loss Control Manager Name Role Phone DONNIE WOOD MD Primary Care Provider Lance Sergio Trujillo Unavailable [phone] ALLERGIES No Known Allergies REASON FOR VISIT Follow Up, Right = Left Shoulder Pain MEDICATIONS Medication SIG (Take, Route, Frequency, Duration) Notes Start Date End Date Status Lisinopril 20 MG 1 tablet Orally Once a day for 30 day(s) Active Levothyroxine Sodium 112 MCG 1 tablet in the morning on an empty stomach Orally Once a day Active LORazepam 0.5 MG TAKE 1 TABLET BY BRUCE TH AT BEDTIME NEEDED FOR ANXIETY Oral for 30 Active metOLazone 5 MG TAKE 1 TABLET BY BRUCE TH DAILY Oral for 30 Active Furosemide 80 MG 1 tablet Orally Once a day for 30 day(s) Active Gabapentin 300 MG 1 capsule Orally Thr ee a day Active dilTIAZem HCl ER 120 MG TAKE 1 CAPSULE B Y MOUTH TWICE DAILY Oral for 90 Active hydrALAZINE HCl 10 MG 1 tablet with food Orally Three times a day Active Basaglar KwikPen 100 UNIT/ML as directed Subcutaneous Act sylvie Atorvastatin Calcium 80 MG 1 tablet Oral ly Once a day Active Aspirin 81 MG 1 tablet Orally Once a day Active Tylenol PM Extra Strength 500-25 MG 1 tablet at bedtime as needed Orally Once a day for 30 day(s) Active Vitamin D3 125 MCG (5000 UT) 1 capsule Orally Once a day for 30 day(s) Active Fenofibrate 145 MG 1 tablet Orally Once a day for 30 day(s) Active cloNIDine HCl 0.1 MG/24HR 1 patch to ski n Transdermal for 30 day(s) Active NovoLOG FlexPen 100 UNIT/ML as directed Subcutaneous Active Carvedilol 25 MG 1 tablet with food O rally Twice a day for 30 day(s) Active Dialyvite 800 0.8 MG 1 tablet Orally Onc e a day for 30 day(s) Active Tadalafil 5 MG 1 tablet as needed O rally Once a day for 30 day(s) Active PreserVision AREDS - as directed Orally Active Metoclopramide HCl 10 MG 1 tablet before meals Orally Twice a day for 30 day(s) Active Lansoprazole 30 MG 1 capsule 1/2 to 1 h our before morning meal Orally Once a day for 30 day(s) Active HYDROcodone-Acetaminophen 5-325 MG 1 tablet as needed Orally every 6 hrs Active SOCIAL HISTORY Tobacco Use: Social History Observation Description Date Details (start date - stop date) Never Smoker NA - NA Sex Assigned At : Social History Observation Description Sex Assigned At Unknown Tobacco Use/Smoking Question Answer Notes Are you a nonsmoker Section Notes: The patient is retired. 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 He denies tobacco, alcohol, or illicit drug abuse PROBLEMS Problem Type ICD Code Onset Dates Problem Status W/U Status Risk SNOMED Code Notes Problem Primary osteoarthritis, 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) Active confirmed Localized, primary osteoarthritis of the shoulder region ([id number]) VITAL SIGNS Blood pressure systolic 112 mm Hg 03/03/19 25 Blood pressure diastolic 62 mm Hg 025 Heart Rate 59 /min 03/03/2024 Respiratory Rate 18 /min 03/03/2024 Height 5 ft 9 in in 03/03/2024 Weight 229 lbs 03/03/2024 BMI 33.81 kg/m2 03/03/2024 Encounters Encounter Location Date Provider Diagnosis [facility] [address] [facility] [place] [address] 03/03/2024 Sergio Stynowick Pain in left knee M25.562 ; Primary osteoarthritis, unspecified shoulder M19.019 ; Other chest pain R07.89 ; Radiculopathy, lumbar region M54.16 ; Other intervertebral disc degeneration, lumbar region M51.36 ; 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 The risks of this procedure including pain, bleeding, infection, nerve damage, insomnia, hyperglycemia, hair loss, muscle atrophy, skin depigmentation, weight gain, fluid retention, adrenal suppression, immunosuppressio n, osteoporosis resulting in fractures, avascular necrosis of the hip, cataracts, bleeding gastric ulcer, worsening pain and failure to relieve pain were discussed and the patient is agreeable to proceeding at this time. 03/03/2024 Other chest pain (ICD-10 - R07.89) 03/03/2024 Radiculopathy, lumbar region (ICD-10 - M54.16) 03/03/2024 Other intervertebral disc degeneration, lumbar region (ICD-10 - M51.36) 03/03/2024 Osseous stenosis of neural canal of lumbar region (ICD-10 - M99.33) 03/03/2024 Spondylosis without myelopathy or radiculopathy, lumbar region (ICD-10 - M47.816) 03/03/2024 snf (current) use of anticoagulants (ICD-10 - Z79.01) 03/03/2024 Pain in right shoulder (ICD-10 - M25.511) 03/03/2024 Pain in left shoulder (ICD-10 - M25.512) 03/03/2024 Other The above-named patient was evaluated in [...] PLAN OF TREATMENT Treatment Notes Assessment Notes Primary osteoarthritis, unsp ecified shoulder Schedule a bilateral shoulder joint ster oid injection. The risks of this procedure including pain, bleeding, infection, nerve damage, insomnia, hyperglycemia, hair loss, muscle atrophy, skin depigmentation, weight gain, fluid retention, adrenal suppression, immunosuppression, osteoporosis resulting in fractures, avascular necrosis of the hip, cataracts, bleeding gastric ulcer, worsening pain and failure to relieve pain were discussed and the patient is agreeable to proceeding at this time. Other The above-named patient was evaluated in [...] minutes Pending Test Test Name Order Date XRAY : Shoulder LEFT 03/03/2024 xray right shoulder 03/03/2024 Next Appt Details Follow Up: bilateral shoulde r joint steroid injection, Reason: Progress Notes * Examination Category Sub-Category [...] patient's typical axial low back pain. John's, [place]'s and Gaenslen's are positive bilaterally. There is [...] There is crepitus with range of motion testing., There is tenderness to palpation about the bilateral shoulder with positive bilateral shoulder impingement upon 90 degrees of abduction Neurological: There is positive st raight leg [...]
--- OUTSIDE RECORDS SUMMARY | 2024-03-08 07:45 | XMS_ITS ---
Author Organization [facility] Address [address] [place] [address] [place] [address] Care Team Providers Care Loan Funder Name Role Phone DONNIE WOOD MD Primary Care Provider Robba Sergio Trujillo Unavailable [phone] REASON FOR VISIT BILAT SHOULDER JOINT INJECTION (NEED XRAY - BEING DONE AT [facility]) MEDICATIONS Medication SIG (Take, Route, Frequency, [...] Location Date Provider Diagnosis [facility] [address] [place] [phone] 03/08/2024 Sergio Rivera Primary osteoarthritis, unspecified shoulder [...] discharged home in good condition with a fire truck driver. X-ray time: 6 seconds Progress [...] patient's typical axial low back pain. John's, Ethel's and Gaenslen's are positive bilaterally. There is [...] and Follow-up: Follow-up Plan documen wendy:: Yes [facility] Quality 2020: [facility] Documented:: Compliant
--- OUTSIDE RECORDS SUMMARY | 2024-03-31 10:13 | XMS_ITS ---
Author Organization [facility] Address [address] [place] [address] Care Team Providers Care Rounding Machine Operator Name Role Phone DONNIE WOOD MD Primary Care Provider Unavaila Sergio Trujillo Unavailable [phone] Encounters Encounter Location Date Provider Diagnosis [facility] [address] [place] [address] [place] [address] 03/31/2024 Sergio Rivera PLAN OF TREATMENT No Information
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
--- OUTSIDE RECORDS SUMMARY | 2024-10-21 10:40 | XMS_ITS | Encounter Summary ---
Author Organization [facility] Address [address] [place] [address] Care Team Providers Care Fountain Waitress/Waiter Name Role Phone Deandre Bojorquez MD Unavailable [phone] Jeff Strickland MD Primary Care Provider [phone] Reason for Visit * Reason Comments Establish Care * Consult, Test & Treat (Routine) - Authorized Specialty Diagnoses / Procedures Referred By Contac t Referred To Contact Neurology Procedures FOLLOW UP WITH PROVIDER Jeff Strickland MD [address] [place] [address] Phone: tel: fax: Magdy Wilson MD [address] [place] [address] Phone: tel: fax: Referral ID Status Reason Start Date Expiration Date V isits Requested Visits Authorized [id number] Authorized 10/21/2024 10/21/2025 6 6 Encounter Details Date Type Department Care Team (Late st Contact Info) Description 10/21/2024 10:40 AM CDT Office Visit [facility] - Neurology [address] [place] [address], [place] [address] Magdy Wilson MD [address] [place] [phone] Confusion (Primary Dx); Memory loss Social [...] Recorded Patient Health Questionnaire-2 Score 6 10/05/2024 [facility] [...] living in a snf (including now)? 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 I discussed the importance of discussing with his PCP other medications to treat his sleep as I am concerned about the anticholinergic effects of antihistamines (Tylenol pm) and his long QT which puts him at risk for torsades de pointes. He became agitated and indicated he is not stopping these. I will also discuss with his PCP. PLAN -blood AD markers ([id number]), ammonia, PTH, B12 -Obtain outside brain MRI [...] care as indicated above. Magdy Wilson MD Residential Air Sealing Technician of Neurology Division of Cognitive Neurology Department of Neurology [facility] NEUROBEHAVIORAL EXAM ([id number]) I performed additional bedside cognitive testing today including the Drew Cognitive Assessment (MOCA), semantic (animal) fluency, Functional Activity Questionnaire (FAQ), Geriatric Depression Scale (GDS) and General Anxiety Scores (ANKUR-7). The original forms are scanned in the chart. A summary of the results is provided in the assessment/plan above. MOCA: Semantic fluency: 6 GDS: 9 ANKUR-7: 4 FAQ: The total time spent in [id number] administration of the test was 40 minutes. [...] Dr Strickland manages. CHF (congestive heart failure) ([facility]) 2 yrs ago News Agent is Dr. Becerra in [place]. CKD (chronic kidney disease), stage V (HCC) Community acquired pneumonia 2018 [facility] hospitalized. Diabetes mellitus (HCC) 20 years. [facility] le[facility]. 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 03/26/21 last seen. Esophageal reflux takes med ESRD (end stage renal disease) (HCC) on PD as of 11/10/20 ESRD on peritoneal dialysis (HCC) Hypercholesteremia 5-10 yrs meds Hypertension 40's takes meds. Hypothyroidism meds 20 years Kidney stones 5-6 years ago had 2 in the same year. No urologist. Malignancy (HCC) right kidney 2012 Obstructive sleep apnea [address] Sergey Guevara [facility] remember doctors name SHABNAM on CPAP Renal cell carcinoma (HCC) [address] [facility] Pruett surgeon. followed up every 6 months until released. [2] Current Outpatient Medications on File Prior to Visit Medication Sig Dispense Refill Aspirin Low Dose 81 MG tablet TAKE 1 TABLET BY MOUTH ONCE DAILY 90 tablet 3 atorvastatin (Lipitor) 80 MG tablet Take 1 (one) tablet by mouth once daily 90 tablet 3 B Wsecjrs-T-Ertnm Acid (Dialyvite 800) 0.8 MG 1 tablet [...] Take 1 (one) capsule by mouth HYDROcodone-acetaminophen (Republic) 5-325 MG tablet Take 1 (one) tablet [...] Vitamins-Minerals (ICAPS AREDS 2 PO) nystatin-triamcinolone (Mycolog) 990800-6.1 UNIT/GM-% cream (Patient not taking: Reported on [...] - 10/29/2024 11:14 AM CDTAddended by: MAGDY WILSON on: 10/29/2024 11:14 AM Modules accepted: Orders documented in this encounter Plan of Treatment Upcoming Encounters Date Type Department Care Team (Late st Contact Info) Description 12/06/2024 10:40 AM CDT Office Visit [facility] - Endocrinology [address] [facility], [place] [phone] Marbin Flores MD [address] [facility] [place] [address] Niraj Turner MD [address] [facility] 2L [place] [address] documented as of this encounter Results * AMMONIA (10/21/2024 1:11 PM CDT) Ammonia 30 <=72 umol/L 10/21/2024 1:[address] [facility] Blood BLOOD SPECIMEN / Unknown Lab Venipuncture / Unknown 10/21/2024 1:11 PM CDT 10/21/2024 1:15 PM CDT us Magdy Wilson MD LAB - CHEMISTRY ORDERABLES Fin al Result Performing Organization Address City/State/[facility] Co de Phone Number [facility] [address] [place] [phone], [facility] [phone] documented in this encounter Visit Diagnoses Diagnosis Confusion- Primary Unspecified psychosis Memory loss documented in this encounter Care Teams Fountain Waitress/Waiter Relationship Specialty Start Date End Date Jeff Strickland MD [address] [place] [address] PCP - General 03/05/18 [place] [address] [place] [address] Orthopedic Surgery 03/28/17 documented as of this encounter
--- NOTE | ~2024-10-30 | CT_ITS ---
EXAMINATION: CT brain wo ladonna, 10/30/2024 21:03 CDT HISTORY: headache COMPARISON: No comparisons available. Technique: Axial images obtained of the brain without contrast. One or more of the following dose reduction techniques were used: automated exposure control, adjustment of the mA and/or kV according to patient size, use of iterative reconstruction technique. Findings: No acute infarct or parenchymal hemorrhage. No abnormal mass or mass effect. No midline shift. No extra-axial fluid collections. No hydrocephalus. Mastoid air cells unremarkable. Sinuses and orbits unremarkable. No acute fracture. No significant facial or scalp soft tissue swelling evident. No radiopaque foreign body is seen. Impression: 1.No acute intracranial abnormality. Reviewed, dictated and finalized at location A. Impression: 1.No acute intracranial abnormality.
[2024-10-30 19:26] VITALS: BP 140/68; PULSE 78; RESP 20; TEMP 36.7; O2SAT 99
--- OUTSIDE RECORDS SUMMARY | 2024-10-30 19:26 | XMS_ITS | Encounter Summary ---
Author Organization [facility] Address [address] [place] [address] Care Team Providers Care Ends Breakage Clerk Name Role Phone Deandre Bojorquez MD Unavailable [phone] Jeff Strickland MD Primary Care Provider [phone] Encounter Details Date Type Department Care Team (Late st Contact Info) Description 02/07/[address] 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, [place] [address] Marbin Flores MD [address] [facility] [place] [address] Niraj Turner MD [address] [facility] 2L Div [place] [address] documented as of this encounter Procedures Procedure Name Priority Date/Time Associated Diagnosis Comments HOLD HLA SPECIMEN Routine 2023 7:5 8 AM MANUFACTURING PROCESS ENGINEER documented in this encounter Results * HOLD HLA SPECIMEN (2023 7:58 AM MANUFACTURING PROCESS ENGINEER) Hold HLA Specimen 02/07/2023 9:01 AM MANUFACTURING PROCESS ENGINEER [facility] Comment:The Hold HLA specime n has been received into the lab and will be held for 5 years at 4 degrees. Blood BLOOD SPECIMEN / Unknown 2023 7:58 AM MANUFACTURING PROCESS ENGINEER 02/07/2023 7:59 AM MANUFACTURING PROCESS ENGINEER Alan Davenport MD LAB - BLOOD BANK ORDERABLES F inal Result [facility] [address] [place] [address], [facility] documented in this encounter Visit Diagnoses Not on filedocumented in this encounter Additional Health Concerns Infection Onset Date Last Indicated Resolved Time COVID-19 Under Investigation 09/13/2024 09/13/2024 09/13/2024 6:36 AM CDT documented as of this encounter Care Teams Ends Breakage Clerk Relationship Specialty Start Date End Date Jeff Strickland MD [address] [place] [address] PCP - General 03/05/18 [place] [address] [address] Orthopedic Surgery 03/28/17 documented as of this encounter
--- OUTSIDE RECORDS SUMMARY | 2024-10-30 19:26 | XMS_ITS | Clinical Summary ---
Author Organization [facility] Address [address] [place] [address] Care Team Providers Care Naphthalene Still Operator Name Role Phone Jeff Strickland MD Primary Care Provider Allergies Active Allergy Reactions Criticality Noted Date Comments Oxycodone Hallucinations Medium 01/02/2023 Medications vitamin d-3 (VITAMIN D3) 400 UNIT Tablet Take 2,000 Units by mouth. Active carvedilol (COREG) 25 MG Tablet Take 25 mg by mouth 2 times daily. 8 Active clopidogrel (PLAVIX) 75 MG Tablet Take 75 mg by mouth daily. 5 Active diphenhydrAMINE -acetaminophen (BENADRYL PM) 25-500 MG Tablet Take 1 Tablet by mouth nightly. Active fluconazole (DIFLUCAN) 100 MG Tablet TAKE 1 TABLET BY MOUTH EVERY DAY WHILE ON ANTIBIOTICS 5 Active furosemide (LASIX) 80 MG Tablet Take 160 mg by mouth. 2 Active gabapentin (NEURONTIN) 100 MG Capsule Take 100 mg by mouth. 5 025 Active hydrALAZINE 10 MG Tablet Take 20 mg by mouth. 5 Active HYDROcodone-moshe taminophen (NORCO) 5-325 MG Tablet Take 1 Tablet by mouth. 5 Active Insulin Aspart FlexPen 100 UNIT/ML Solution Pen-injector Take 8-15 units with meals. TDD 60 units 4 Active levothyroxine (SYNTHROID) 112 MCG Tablet Take by mouth. 8 Active lisinopril (PRINIVIL, ZESTRIL) 20 MG Tablet Take 20 mg by mouth daily. 5 Active LORazepam (ATIVAN) 0.5 MG Tablet Take 0.5 mg by mouth. Active midodrine (PROAMATINE) 2.5 MG Tablet Take 2.5 mg by mouth. 5 Active Mirtazapine (REMERON) 7.5 MG Tablet 5 Active Multivitamin-Mi nerals (Dialyvite 800/Ultra D) Tablet Take 1 Tablet by mouth daily. Active multivitamin-mi nerals (PRESERVISION/L UTEIN) Capsule Take 1 Capsule by mouth daily. Active nystatin-triamc inolone (MYCOLOG II) 820552-0.1 UNIT/GM-% Cream 5 Active ondansetron (ZOFRAN-ODT) 4 MG TABLET DISPERSIBLE Take 4 mg by mouth. Active Potassium Chloride ER (KLORCON) 20 MEQ Tablet Controlled Release Take 20 mEq by mouth daily. 5 Active aspirin 81 MG Chewable Tablet daily Acti ve atorvastatin (LIPITOR) 80 MG Tablet Take 80 mg by mouth daily. 0 Active dialyvite 800 (DIALYVITE) 0.8 MG Tablet Take 1 Tablet by mouth daily. Active Lantus SoloStar 100 UNIT/ML Solution Pen-injector by Subcutaneous route. 8 Active Insulin Lispro, 1 Unit Dial, (HumaLOG KwikPen) 100 UNIT/ML Solution Pen-injector Max 136 units per day 1 Active Insulin Pen Needle (B-D UF III MINI PEN NEEDLES) 31G X 5 MM Misc INJECT FIVE TIMES DAILY UTD 0 Active pantoprazole (PROTONIX) 40 MG Tablet Delayed Response Take 40 mg by mouth daily. 5 Active tamsulosin (FLOMAX) 0.4 MG Capsule Take 1 Capsule by mouth daily. 5 Active cefpodoxime (VANTIN) 200 MG Tablet Take 200 mg by mouth. 5 025 Encounters Date Type Department Care Team Description 10/29/2024 Telephone [facility] - Cardiology [facility] [address] [place] [address] Suly Smith APRN, ORCHID GROWER 10/15/2024 Telephone [facility] Cardiology [facility] [address] [place] [address] Hannah Goodman MD 10/14/2024 2:40 PM CDT Clinical Support [facility] [address] [place] [phone] NurseAsim Cardiology Dressing change (Primary Dx) Discharge Disposition: Discharged to home or Selfcare 10/14/2024 Travel from Last 3 Months Family History Medical History Relation Name Comments No Known Problems Brother 1 No Known Problems Brother 2 Colon Cancer Father Aneurysm Mother Brain No Known Problems Sister No Known Problems Son 1 No Known Problems Son 2 Relation Name Status Comments Brother 1 Alive Brother 2 Alive Father Maternal Grandfather Maternal Grandmother Mother Paternal Grandfather Paternal Grandmother Sister Alive Son 1 Alive Son 2 Alive Social History Tobacco Use Types Packs/Day Years Used Date Smoking Tobacco: Never Smokeless Tobacco: Never Tobacco Cessation:Counseling Given: Not Answered Alcohol Use Standard Drinks/Week Comments Not Currently 0 (1 standard drink = 0.6 oz pur e alcohol) Social Sex and Gender Information Value Date Recorded Sex Assigned at Not on file Legal Sex Male 10:55 AM CDT Gender Identity Not on file Sexual Orientation Not on file Last Filed Vital Signs Vital Sign Reading Time Taken Comments Blood Pressure 90/60 10/14/2024 3:01 PM CDT Pulse 72 10/14/2024 3:01 PM CDT Temperature 36.3 C (97.3 F) 10/14/2024 3:01 PM CDT Respiratory Rate 20 10/14/2024 3:01 PM CDT Oxygen Saturation 96% 10/14/2024 3:01 PM CDT Inhaled Oxygen Concentration - - Weight 117.9 kg (260 lb) 10/14/2024 3:01 PM CDT Per patient Height 172.7 cm (5' 8) 10/14/2024 3:01 PM CDT Body Mass Index 39.53 10/14/2024 3:01 PM CDT Plan of Treatment Upcoming Encounters Date Type Department Care Team (Late st Contact Info) Description 11/11/2024 11:45 AM CDT Office Visit [facility] - [facility]iology - [place] [facility] [place] [address] Hannah Goodman MD 2 [facility] NORY [facility] [address] [place] [address] 04/11/2025 11:30 AM FORMS ANALYST Office Visit [facility] - Cardiology - [place] [address] [place] [address] Maylin Cutler, 2 [facility] [address] [place] [address] Health Maintenance Due Date Last Done Comments Cologuard 01/19/2001 Colonoscopy 01/19/2001 Colorectal Cancer Screening 01/19/2001 Immunochemical Fecal Occult Blood 01/19/2001 Pneumococcal Immunization (50+ years) (1 of 1 - PCV) 01/19/2006 08/09/2020, 02/09/2020 PSA Discussion 01/19/2011 Respiratory Syncytial Virus (RSV) Immunization (Adult) (1 - Risk 60-74 years 1-dose series) 2016 Influenza Immunization (#1) 10/18/202411/18, 05/03/2023, 10/29/2020, Additional history exists SARS-COV-2 Immunization ( season) 2024 12/13/2023, 05/05/2020, 04/15/2020, Additional history exists TdaP Immunization Completed 04/10/2016, 04/09/2016 Hepatitis B Immunization Completed 022, 08/17/2020, 03/21/2020, Additional history exists Zoster Immunization Completed 01/01/2024, Hepatitis C Virus (HCV) Screening Completed 06/16/2024 Human Papillomavirus (HPV) Immunization Aged Out No longer eligible based on patient's age to complete this topic Meningococcal Immunization (ACWY) Aged Out No longer eligible based on patient's age to complete this topic Rotavirus Immunization Aged Out No lo nger eligible based on patient's age to complete this topic Insurance MEDICARE C AETNA Care Teams Naphthalene Still Operator Relationship Specialty Start Date End Date Jeff Strickland MD [address] [place] [address] PCP - General Family Medicine 10/14/24
--- OUTSIDE RECORDS SUMMARY | 2024-10-30 19:26 | XMS_ITS | Encounter Summary ---
Author Organization [facility] Address [facility] [place] [address] Care Team Providers Care Dairy Frozen Manager Name Role Phone Deandre Bojorquez MD Unavailable [phone] Jeff Strickland MD Primary Care Provider [phone] Encounter Details Date Type Department Care Team (Late st Contact Info) Description 05/29/2023 Lab Requisition [facility] MAIN LAB [address] [place] [phone] Alan Davenport MD [facility] [place] [address] Social History Tobacco Use Types Packs/Day Years Used Date Smoking Tobacco: Never Smokeless Tobacco: Never Alcohol Use Standard Drinks/Week Comments Not Currently 0 (1 standard drink = 0.6 oz pur e alcohol) socially in past Sex and Gender Information Value Date Recorded Sex Assigned at Male 07/02/2021 2:37 PM CDT Legal Sex Male 10:14 PM 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 2L Div [place] [address] documented as of this encounter Procedures Procedure Name Priority Date/Time Associated Diagnosis Comments HOLD HLA SPECIMEN Routine 05/21/2023 9:2 4 AM CDT documented in this encounter Results * HOLD HLA SPECIMEN (05/21/2023 9:24 AM CDT) Hold HLA Specimen 05/29/2023 10:30 AM CDT [facility] Comment:The Hold HLA specime n has been received into the lab and will be held for 5 years at 4 degrees. Blood BLOOD SPECIMEN / Unknown 05/21/2023 9:24 AM CDT 05/29/2023 9:24 AM CDT Alan Davenport MD LAB - BLOOD BANK ORDERABLES F inal Result [facility] [address] [place] [address], [facility] documented in this encounter Visit Diagnoses Not on filedocumented in this encounter Additional Health Concerns Infection Onset Date Last Indicated Resolved Time COVID-19 Under Investigation 09/13/2024 09/13/2024 09/13/2024 6:36 AM CDT documented as of this encounter Care Teams Dairy Frozen Manager Relationship Specialty Start Date End Date Jeff Strickland MD [address] [place] [address] PCP - General 03/05/18 [place] [address] [place] [address] Orthopedic Surgery 03/28/17 documented as of this encounter
--- OUTSIDE RECORDS SUMMARY | 2024-10-30 19:26 | XMS_ITS | Encounter Summary ---
Author Organization [facility] Address [facility] [place] [address] Care Team Providers Care Metal Reed Tuner Name Role Phone Deandre Bojorquez MD Unavailable [phone] Jeff Strickland MD Primary Care Provider [phone] Encounter Details Date Type Department Care Team (Late st Contact Info) Description 09/30/2023 Lab Requisition [facility] MAIN LAB [address] [place] [phone] Alan Davenport MD [facility] OF [place] [address] Social History Tobacco Use Types Packs/Day Years Used Date Smoking Tobacco: Never Smokeless Tobacco: Never Alcohol Use Standard Drinks/Week Comments Not Currently 0 (1 standard drink = 0.6 oz pur e alcohol) socially in past Sex and Gender Information Value Date Recorded Sex Assigned at Male 07/02/2021 2:37 PM CDT Legal Sex Male 10:14 PM RESIDENTIAL PLUMBER Gender Identity Male 07/02/2021 2:37 PM CDT [...] Description 12/06/2024 10:40 AM CDT Office Visit [facility] - Endocrinology [address] [facility], [place] [address] Marbin Flores MD [address] [facility] DIV [place] [address] Niraj Turner MD [address] [facility] 2L [place] [address] documented as of this encounter Procedures Procedure Name Priority Date/Time Associated Diagnosis Comments HOLD HLA SPECIMEN Routine 09/24/2023 3:2 7 PM CDT documented in this encounter Results * HOLD HLA SPECIMEN (09/24/2023 3:27 PM CDT) Hold HLA Specimen 09/30/2023 4:32 PM CDT [facility] Comment:The Hold HLA specime n has been received into the lab and will be held for 5 years at 4 degrees. Blood BLOOD SPECIMEN / Unknown 09/24/2023 3:27 PM CDT 09/30/2023 3:27 PM CDT Alan Davenport MD LAB - BLOOD BANK ORDERABLES F inal Result [facility] [address] [place] [address], [facility] documented in this encounter Visit Diagnoses Not on filedocumented in this encounter Additional Health Concerns Infection Onset Date Last Indicated Resolved Time COVID-19 Under Investigation 09/13/2024 09/13/2024 09/13/2024 6:36 AM CDT documented as of this encounter Care Teams Metal Reed Tuner Relationship Specialty Start Date End Date Jeff Strickland MD [address] [place] [address] PCP - General 03/05/18 [place] [address] [facility] [address] [place] [address] Orthopedic Surgery 03/28/17 documented as of this encounter
--- OUTSIDE RECORDS SUMMARY | 2024-10-30 19:26 | XMS_ITS | Encounter Summary ---
Author Organization [facility] Address [address] [place] [address] Care Team Providers Care Block Making Machine Operator Name Role Phone Deandre Bojorquez MD Unavailable [phone] Jeff Strickland MD Primary Care Provider [phone] Encounter Details Date Type Department Care Team (Late st Contact Info) Description 10/28/2023 Lab Requisition [facility] MAIN LAB [address] [place] [phone] Alan Davenport MD [facility]1 [facility] [place] [address] Social History Tobacco Use Types Packs/Day Years Used Date Smoking Tobacco: Never Smokeless Tobacco: Never Alcohol Use Standard Drinks/Week Comments Not Currently 0 (1 standard drink = 0.6 oz pur e alcohol) socially in past Sex and Gender Information Value Date Recorded Sex Assigned at Male 07/02/2021 2:37 PM CDT Legal Sex Male 10:14 PM PLANT SPECIALIST Gender Identity Male 07/02/2021 2:37 PM [...] Description 12/06/2024 10:40 AM CDT Office Visit [facility] - Endocrinology [address] [facility], [place] [address] Marbin Flores MD [address] [facility] DIV [place] [address] Niraj Turner MD [address] [facility] [place] 2L [place] [address] documented as of this encounter Procedures Procedure Name Priority Date/Time Associated Diagnosis Comments HOLD HLA SPECIMEN Routine 10/22/2023 3:5 0 PM CDT documented in this encounter Results * HOLD HLA SPECIMEN (10/22/2023 3:50 PM CDT) Hold HLA Specimen 10/28/2023 5:00 PM CDT [facility] ([facility]) Comment:The Hold HLA specime n has been received into the lab and will be held for 5 years at 4 degrees. Blood BLOOD SPECIMEN / Unknown 10/22/2023 3:50 PM CDT 10/28/2023 3:50 PM CDT Alan Davenport MD LAB - BLOOD BANK ORDERABLES F inal Result [facility] [address] [place] [address], [facility] documented in this encounter Visit Diagnoses Not on filedocumented in this encounter Additional Health Concerns Infection Onset Date Last Indicated Resolved Time COVID-19 Under Investigation 09/13/2024 09/13/2024 09/13/2024 6:36 AM CDT documented as of this encounter Care Teams Block Making Machine Operator Relationship Specialty Start Date End Date Jeff Strickland MD [address] [place] [address] PCP - General 03/05/18 [place] [address] [facility] [address] [place] [address] Orthopedic Surgery 03/28/17 documented as of this encounter
--- OUTSIDE RECORDS SUMMARY | 2024-10-30 19:26 | XMS_ITS | Patient Health Record ---
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 He denies tobacco, alcohol, or illicit drug abuse The patient is retired. 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 He denies tobacco, alcohol, or illicit drug abuse The patient is retired. 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 He denies tobacco, alcohol, or illicit drug abuse The patient is retired. 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 He denies tobacco, alcohol, or illicit drug abuse The patient is retired. 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 He denies tobacco, alcohol, or illicit drug abuse The patient is retired. 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 He denies tobacco, alcohol, or illicit drug abuse The patient is retired. 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 He denies tobacco, alcohol, or illicit drug abuse The patient is retired. 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 He denies tobacco, alcohol, or illicit drug abuse The patient is retired. 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 He denies tobacco, alcohol, or illicit drug abuse The patient is retired. 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 He denies tobacco, alcohol, or illicit drug abuse The patient is retired. 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 He denies tobacco, alcohol, or illicit drug abuse The patient is retired. 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 He denies tobacco, alcohol, or illicit drug abuse The patient is retired. 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 He denies tobacco, alcohol, or illicit drug abuse The patient is retired. 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) Active confirmed Localized, primary osteoarthritis of the shoulder region (674267008) Problem Pain in left hip (M25.552) Active confirmed Pain of left hi p joint (finding) (544491760275852) Problem Spondylosis without myelopathy or radiculopathy, lumbar region (M47.816) Active confirmed Lumbosacral spondylosis without myelopathy (64460358) Problem Other intervertebral disc degeneration, lumbar region (M51.36) Active confirmed Degeneration of lumbar intervertebral disc (27068373) Problem Radiculopathy, lumbar region (M54.16) Active confirmed Lumbar radiculopathy (607700437) Problem Radiculopathy, lumbosacral region (M54.17) Active confirmed Lumbosacral radiculopathy (1205541) Problem Osseous stenosis of neural canal of lumbar region (M99.33) Active confirmed Spinal stenosis of lumbar region (26761820) Problem penitentiary (current) use of anticoagulants (Z79.01) Active confirmed Long-term curre nt use of anticoagulant (868989464) Problem Other intervertebral disc degeneration, lumbar region [...] Location Date Provider Diagnosis [facility] [address] [place] [address] 01/12/2024 Sergio Stynowick Radiculopathy, lumba r region M54.16 ; Radiculopathy, lumbosacral region M54.17 ; Other chest pain R07.89 ; Other intervertebral disc degeneration, lumbar region M51.36 ; 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 ; Spondylosis without myelopathy or radiculopathy, lumbar region M47.816 and penitentiary (current) use of anticoagulants Z79.01 [facility] [address] [place] [address] 01/19/2024 Sergio Stynowick Radiculopathy, lumba r region M54.16 ; Other intervertebral disc degeneration, lumbar region with discogenic back pain and lower extremity pain M51.362 and 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 [facility] [address] [place] [address] 02/03/2024 Sergio Stynowick Other chest pain R07.89 ; Pain in left knee M25.562 ; Radiculopathy, lumbar region M54.16 ; Other intervertebral disc degeneration, lumbar region M51.36 ; 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 ; Spondylosis without myelopathy or radiculopathy, lumbar region M47.816 and penitentiary (current) use of anticoagulants Z79.01 [facility] [address] [place] [address] 03/03/2024 Sergio Stynowick Pain in left knee M25.562 ; Primary osteoarthritis, unspecified shoulder M19.019 ; Other chest pain R07.89 ; Radiculopathy, lumbar region M54.16 ; Other intervertebral disc degeneration, lumbar region M51.36 ; 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 ; Spondylosis without myelopathy or radiculopathy, lumbar region M47.816 ; oil heaterman (current) use of anticoagulants Z79.01 ; Pain in right shoulder M25.511 and Pain in left shoulder M25.512 [facility] [address] [place] [address] 03/08/2024 Sergio Stynowick Primary osteoarthritis, unspecified shoulder M19.019 [facility] [address] [place] [address] 03/31/2024 Sergio Schmitzick ASSESSMENTS Encounter Date Diagnosis [...] of lumbar region (ICD-10 - M99.33) 01/12/2024 oil heaterman (current) use of anticoagulants (ICD-10 - Z79.01) The patient was instructed to discontinue aspirin for 6 days prior to the procedure. I made the patient aware that he will be at an increased risk for a thromboembolic event during this time and he is willing to accept this risk. The patient was instructed to notify his primary care physician and/or blanket weaver to obtain clearance prior to discontinuing this medication. 02/03/2024 penitentiary (current) use of anticoagulants (ICD-10 - [...] Coverage End Date [employer] MED[employer]ARE [address] [place] [address] [id number] GRACE INTERIANO Self - patient is the insured MEDICAL (GENERAL) HISTORY Medical History History ICD Code Hypertension Hypothyroidism Diabetes type 2 Gastroesophageal reflux disease (GERD) Renal cell cancer Chronic kidney disease stage 4 Sleep apnea CHF Surgical History Surgery Date(Month/Year) Right total knee arthroplasty 08/2015 Cholecystectomy Hernia repair 2019 Cardiac stent 07/2020
--- OUTSIDE RECORDS SUMMARY | 2024-10-30 19:26 | XMS_ITS | Encounter Summary ---
Author Organization [facility] Address [facility] [place] [address] Care Team Providers Care Pulmonary Physician Name Role Phone Deandre Bojorquez MD Unavailable [phone] Jeff Strickland MD Primary Care Provider [phone] Encounter Details Date Type Department Care Team (Late st Contact Info) Description 04/10/2023 Lab Requisition [facility] MAIN LAB [address] [place] [phone] Alan Davenport MD [facility] OF ABD [place] [address] Social History Tobacco Use Types Packs/Day Years Used Date Smoking Tobacco: Never Smokeless Tobacco: Never Alcohol Use Standard Drinks/Week Comments Not Currently 0 (1 standard drink = 0.6 oz pur e alcohol) socially in past Sex and Gender Information Value Date Recorded Sex Assigned at Male 07/02/2021 2:37 PM CDT Legal Sex Male 10:14 PM ANIMAL HUSBANDRY TECHNICIAN Gender Identity Male 07/02/2021 2:37 PM CDT [...] Description 12/06/2024 10:40 AM CDT Office Visit [facility] - Endocrinology [address] [facility], [place] [address] Marbin Flores MD [address] [facility] DIV OF ABD [place] [address] Niraj Turner MD [address] [facility] 2L [place] [address] documented as of this encounter Procedures Procedure Name Priority Date/Time Associated Diagnosis Comments HOLD HLA SPECIMEN Routine 04/02/2023 3:0 1 PM ANIMAL HUSBANDRY TECHNICIAN documented in this encounter Results * HOLD HLA SPECIMEN (04/02/2023 3:01 PM ANIMAL HUSBANDRY TECHNICIAN) Hold HLA Specimen 04/10/2023 4:01 PM ANIMAL HUSBANDRY TECHNICIAN [facility] Comment:The Hold HLA specime n has been received into the lab and will be held for 5 years at 4 degrees. Blood BLOOD SPECIMEN / Unknown 04/02/2023 3:01 PM ANIMAL HUSBANDRY TECHNICIAN 04/10/2023 3:01 PM ANIMAL HUSBANDRY TECHNICIAN Alan Davenport MD LAB - BLOOD BANK ORDERABLES F inal Result [facility] [address] [place] [address], [facility] documented in this encounter Visit Diagnoses Not on filedocumented in this encounter Additional Health Concerns Infection Onset Date Last Indicated Resolved Time COVID-19 Under Investigation 09/13/2024 09/13/2024 09/13/2024 6:36 AM CDT documented as of this encounter Care Teams Pulmonary Physician Relationship Specialty Start Date End Date Jeff Strickland MD [address] [place] [address] PCP - General 03/05/18 [place] [address] [address] Orthopedic Surgery 03/28/17 documented as of this encounter
--- OUTSIDE RECORDS SUMMARY | 2024-10-30 19:26 | XMS_ITS | Encounter Summary ---
Author Organization [facility] Address [address] [place] [address] Care Team Providers Care Garage Mechanic Name Role Phone Deandre Bojorquez MD Unavailable [phone] Jeff Strickland MD Primary Care Provider [phone] Encounter Details Date Type Department Care Team (Late st Contact Info) Description 07/31/2023 Lab Requisition [facility] MAIN LAB [address] [place] [phone] Alan Davenport MD [facility] OF ABD [place] [address] Social History Tobacco Use Types Packs/Day Years Used Date Smoking Tobacco: Never Smokeless Tobacco: Never Alcohol Use Standard Drinks/Week Comments Not Currently 0 (1 standard drink = 0.6 oz pur e alcohol) socially in past Sex and Gender Information Value Date Recorded Sex Assigned at Male 07/02/2021 2:37 PM CDT Legal Sex Male 10:14 PM WELDER RAILCAR MECHANIC Gender Identity Male 07/02/2021 2:37 PM CDT [...] Description 12/06/2024 10:40 AM CDT Office Visit [facility] - Endocrinology [address] [facility], [place] [address] Marbin Flores MD [address] [facility] DIV OF [place] [address] Niraj Turner MD 12[address] [facility] 2L [place] [address] documented as of this encounter Procedures Procedure Name Priority Date/Time Associated Diagnosis Comments HOLD HLA SPECIMEN Routine 07/23/2023 2:0 5 PM CDT documented in this encounter Results * HOLD HLA SPECIMEN (07/23/2023 2:05 PM CDT) Hold HLA Specimen 07/31/2023 3:32 PM CDT [facility] Comment:The Hold HLA specime n has been received into the lab and will be held for 5 years at 4 degrees. Blood BLOOD SPECIMEN / Unknown 07/23/2023 2:05 PM CDT 07/31/2023 2:06 PM CDT Alan Davenport MD LAB - BLOOD BANK ORDERABLES F inal Result [facility] [address] [place] [address], [facility] documented in this encounter Visit Diagnoses Not on filedocumented in this encounter Additional Health Concerns Infection Onset Date Last Indicated Resolved Time COVID-19 Under Investigation 09/13/2024 09/13/2024 09/13/2024 6:36 AM CDT documented as of this encounter Care Teams Garage Mechanic Relationship Specialty Start Date End Date Jeff Strickland MD [address] [place] [address] PCP - General 03/05/18 [place] [address] [facility] [address] [place] [address] Orthopedic Surgery 03/28/17 documented as of this encounter
--- OUTSIDE RECORDS SUMMARY | 2024-10-30 19:26 | XMS_ITS | Encounter Summary ---
Author Organization [facility] Address [facility] [place] [address] Care Team Providers Care Dedicated Driver Name Role Phone Deandre Bojorquez MD Unavailable [phone] Jeff Strickland MD Primary Care Provider [phone] Reason for Visit * Reason Onset Date Comments Pain 10/25/2024 Appointment 10/25/2024 Encounter Details Date Type Department Care Team (Late st Contact Info) Description 10/25/2024 Telephone [facility] - Vascular Surgery [address] [place] [address], [place] [address] Elroy Holcomb MD [address] [place] [address] [place] [address] Pain; Appointment Social History Tobacco Use Types Packs/Day Years [...] Recorded Patient Health Questionnaire-2 Score 6 10/05/2024 [facility] - Occupational Stress [...] any time in the past 12 m [facility], were you homeless or living in a senior care (including now)? No 09/24/2024 Sex and Gender Information Value Date Recorded Sex Assigned at Male 07/02/2021 2:37 PM CDT Legal Sex Male 10:14 PM COMPOSITION INSTRUCTOR Gender Identity Male 07/02/2021 2:37 PM [...] Entry Date Author No 09/24/2024 5:33 AM ELIANAT Francy Vigil RN documented in this encounter Miscellaneous Notes * Telephone Encounter - Michael Vides RN - 10/25/2024 10:12 AM CDT Voicemail received for [facility]. Caller is requesting a sooner appointment due to pain. They report pain up to knee. S/p left first toe amputation. Call made to [facility]. No answer. Left a brief message to contact the vascular surgery nurse phone number. documented in this encounter Plan of Treatment Upcoming Encounters Date Type Department Care Team (Late st Contact Info) Description 12/06/2024 10:40 AM CDT Office Visit [facility] - Endocrinology [facility]5 [facility], [place] [address] Marbin Flores MD [address] [facility] DIV OF A[place] [address] Niraj Turner MD 1225 [facility] 2L [place] [address] documented as of this encounter Visit Diagnoses Not on filedocumented in this encounter Care Teams Dedicated Driver Relationship Specialty Start Date End Date Jeff Strickland MD [address] [place] [address] PCP - General 03/05/18 [place] [address] [address] Orthopedic Surgery 03/28/17 documented as of this encounter
--- OUTSIDE RECORDS SUMMARY | 2024-10-30 19:26 | XMS_ITS | Encounter Summary ---
Author Organization [facility] Address [address] [facility] [place] [address] Phone Care Team Providers Care Injection Moulding Machine Operator Name Role Phone Jeff Strickland MD Primary Care Provider Encounter Details Date Type Department Care Team (Late st Contact Info) Description 10/29/2024 Telephone [facility] - Cardiology [facility] [address] [place] [address] Suly Smith APRN, FLAVIA [address] [place] [address] Social History Tobacco Use Types Packs/Day Years [...] on file documented as of this encounter Miscellaneous Notes * Telephone Encounter - Suly Smith APRN, CNP - 10/29/2024 4:16 PM CDT Called patient to check on amputation and wound heeling per Dr. Goodman's request. Per patient's , amputation is healing slowly and right foot ulcer is the same. Dr. Goodman requesting to see patient next week, however, patient is unable to make it next week due to other appointments. Appointment made for the following week. documented in this encounter Plan of Treatment Upcoming Encounters Date Type Department Care Team (Late st Contact Info) Description 11/11/2024 11:45 AM CDT Office Visit [facility] - Cardiology - [place] [address] [place] [address] Hannah Goodman MD 2 [facility] [address] [place] [address] 04/11/2025 11:30 AM POCKET BUILDER Office Visit [facility] - Cardiology - [address] [place] [address] Maylin Cutler DO [address] [address] documented as of this encounter Visit Diagnoses Not on filedocumented in this encounter Care Teams Injection Moulding Machine Operator Relationship Specialty Start Date End Date Jeff Strickland MD [address] [place] [address] PCP - General Family Medicine 10/14/24 documented as of this encounter
--- OUTSIDE RECORDS SUMMARY | 2024-10-30 19:26 | XMS_ITS | Encounter Summary ---
Author Organization [facility] Address [address] [place] [address] Phone Care Team Providers Care Ring Cutter Lathe Operator Name Role Phone Jeff Strickland MD Primary Care Provider Chan Nicholas MD Unavailable [phone] Alan Mccall MD Unavailable Lorna Lantigua MD Unavailable Juliette Savage RN Unavailable Pepito Haro MD PhD Unavailable Solange Guido MD Unavailable [phone] Letha Gil RN Unavailable Encounter Details Date Type Department Care Team (Late st Contact Info) Description 05/02/2021 [facility] Medicine Ophthalmology [address] [place] [address] 1st [place] [address] Corina Ventura MD PhD [address] [address] Social History Tobacco Use Types [...] on file Legal Sex Male 2:23 AM TOOL MACHINE SETUP OPERATOR Gender Identity Not on file Sexual [...] COVID: Suspected 03/24/2023 03/24/2023 03/24/2023 5:45 PM TOOL MACHINE SETUP OPERATOR COVID19 03/24/2023 03/24/2023 04/08/2023 3:06 AM TOOL MACHINE SETUP OPERATOR COVID: Recovered Comment:Added based on recent COVID infection. 04/08/2023 04/10/2023 07/07/2023 3:06 AM C DT COVID: Suspected 04/10/2024 04/10/2024 04/11/2024 1:24 AM TOOL MACHINE SETUP OPERATOR C. difficile suspected 04/11/2024 04/11/202404/11 1:21 PM TOOL MACHINE SETUP OPERATOR documented as of this encounter Eye [...] arcade Normal Periphery Normal Normal Care Teams Ring Cutter Lathe Operator Relationship Specialty Start Date End Date Jeff Strickland MD [address] [address] PCP - General Family Medicine 04/02/18 Chan Nicholas MD [address] [place] [address] [id number] Consulting Physician Gastroenterology 11/24/18 Alan Mccall MD [address] [place] [address] [address] Referring Physician Nephrology 11/24/18 Lorna Lantigua MD [facility] [address] [address] Consulting Physician Cardiology 11/24/18 07/22/23 Juliette Savage, RN [address] [place] [address] Nurse Navigator 06/04/21 03/14/22 Pepito Haro MD PhD [address] [place] [address] Consulting Physician Neurosurgery 12/03/22 Solange Guido MD [address] [facility] [address] [place] [address] Referring Physician Cardiovascular Disease 07/23/23 Letha Gil, RN [address] [facility] [address] [place] [address] SHOP Outpatient Floor Hand 04/14/24 04/18/24 documented as of this encounter
--- OUTSIDE RECORDS SUMMARY | 2024-10-30 19:27 | XMS_ITS | Encounter Summary ---
Author Organization [facility] Address [address] [place] [address] Care Team Providers Care Quickbooks Bookkeeper Name Role Phone Deandre Bojorquez MD Unavailable [phone] Jeff Strickland MD Primary Care Provider [phone] Encounter Details Date Type Department Care Team (Late st Contact Info) Description 06/25/2024 Lab Requisition [facility] MAIN LAB [address] [place] [phone] Alan Davenport MD [facility] [place] [address] Social History Tobacco Use Types Packs/Day Years Used Date Smoking Tobacco: Never Smokeless Tobacco: Never Alcohol Use Standard Drinks/Week Comments Not Currently 0 (1 standard drink = 0.6 oz pur e alcohol) socially in past Sex and Gender Information Value Date Recorded Sex Assigned at Male 07/02/2021 2:37 PM CDT Legal Sex Male 10:14 PM ACID TESTER Gender Identity Male 07/02/2021 2:37 PM [...] [facility] - Endocrinology [address] [facility], [place] [address] Marbin Flores MD [address] [facility] DIV [place] [address] Niraj Turner MD 1225 [facility] 2L [place] [address] documented as of this encounter Procedures Procedure Name Priority Date/Time Associated Diagnosis Comments HOLD HLA SPECIMEN Routine 06/22/2024 11: 05 AM CDT documented in this encounter Results * HOLD HLA SPECIMEN (06/22/2024 11:05 AM CDT) Hold HLA Specimen 06/25/2024 12:32 PM CDT [facility] Comment:The Hold HLA specime n has been received into the lab and will be held for 5 years at 4 degrees. Blood BLOOD SPECIMEN / Unknown 06/22/2024 11:05 AM CDT 06/25/2024 11:05 AM CDT Alan Davenport MD LAB - BLOOD BANK ORDERABLES F inal Result [facility] [address] [place] [address], [facility] documented in this encounter Visit Diagnoses Not on filedocumented in this encounter Additional Health Concerns Infection Onset Date Last Indicated Resolved Time COVID-19 Under Investigation 09/13/2024 09/13/2024 09/13/2024 6:36 AM CDT documented as of this encounter Care Teams Quickbooks Bookkeeper Relationship Specialty Start Date End Date Jeff Strickland MD [address] [place] [address] PCP - General 03/05/18 [place] [address] [address] [address] [place] [address] Orthopedic Surgery 03/28/17 documented as of this encounter
--- OUTSIDE RECORDS SUMMARY | 2024-10-30 19:27 | XMS_ITS | Encounter Summary ---
Author Organization [facility] Healthcare Address [address] [place] [address] Care Team Providers Care Ecd Name Role Phone Jeff Strickland MD Primary Care Provider Chan Nicholas MD Unavailable [phone] Alan Mccall MD Unavailable [phone] Pepito Haro MD PhD Unavailable [phone] Solange Guido MD Unavailable [phone] Encounter Details Date Type Department Care Team (Late st Contact Info) Description 07/28/2024 Orders Only [facility] [facility] [place] Information Management [address] [place] [address] Scanning, Provider Social History Tobacco Use Types Packs/Day Years Used Date Smoking Tobacco: Never Smokeless Tobacco: Never Alcohol Use Standard Drinks/Week Comments Yes 0 (1 standard drink = 0.6 oz pur e alcohol) rarely [facility] Utilities Answer Date Recorded In the past 12 months has [employer] electric, gas, oil, or water company threatened [...] any clubs o r organizations such as pentecostalism groups, unions, fraternal or athletic groups, or [...] place to sleep or slept in a mcc (including now)? 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 Sex Male 2:23 AM CAUSTIC PUMP OPERATOR Gender Identity Not on file Sexual [...] on filedocumented in this encounter Care Teams Ecd Relationship Specialty Start Date End Date Jeff Strickland MD [facility] [address] [place] [id number] PCP - General Family Medicine 04/02/18 Chan Nicholas MD [facility] [address] [address] Consulting Physician Gastroenterology 11/24/18 Alan Mccall MD [facility] [address] [address] Referring Physician Nephrology 11/24/18 Pepito Haro MD PhD [address] [place] [address] Consulting Physician Neurosurgery 12/03/22 Solange Guido MD [address] [facility] [address] [place] [address] Referring Physician Cardiovascular Disease 07/23/23 documented as of this encounter
--- OUTSIDE RECORDS SUMMARY | 2024-10-30 19:27 | XMS_ITS | Encounter Summary ---
Author Organization [facility] Address [address] [place] [address] Care Team Providers Care Auto Mechanic Name Role Phone Deandre Bojorquez MD Unavailable [phone] Jeff Strickland MD Primary Care Provider [phone] Encounter Details Date Type Department Care Team (Late st Contact Info) Description 03/12/[address] [facility] MAIN LAB [address] [place] [phone] Alan Davenport MD [facility] OF [place] [address] Social History Tobacco Use Types Packs/Day Years Used Date Smoking Tobacco: Never Smokeless Tobacco: Never Alcohol Use Standard Drinks/Week Comments Not Currently 0 (1 standard drink = 0.6 oz pur e alcohol) socially in past Sex and Gender Information Value Date Recorded Sex Assigned at Male 07/02/2021 2:37 PM CDT Legal Sex Male 10:14 PM NEONATOLOGIST Gender Identity Male 07/02/2021 2:37 PM CDT [...] Date Author No 08/04/2020 12:15 PM CDT Moniqeu Suárez RN documented in this encounter Plan of Treatment Upcoming Encounters Date Type Department Care Team (Late st Contact Info) Description 12/06/2024 10:40 AM CDT Office Visit [facility] - Endocrinology [address] [facility], [place] [address] Marbin Flores MD [address] [facility] DIV OF [place] [address] Niraj Turner MD 1225 [facility] 2L [place] [address] documented as of this encounter Procedures Procedure Name Priority Date/Time Associated Diagnosis Comments HOLD HLA SPECIMEN Routine 03/05/2024 1:4 0 PM NEONATOLOGIST documented in this encounter Results * HOLD HLA SPECIMEN (03/05/2024 1:40 PM NEONATOLOGIST) Hold HLA Specimen 03/12/2024 3:00 PM NEONATOLOGIST [facility] Comment:The Hold HLA specime n has been received into the lab and will be held for 5 years at 4 degrees. Blood BLOOD SPECIMEN / Unknown 03/05/2024 1:40 PM NEONATOLOGIST 03/12/2024 1:40 PM NEONATOLOGIST Alan Davenport MD LAB - BLOOD BANK ORDERABLES F inal Result [facility] [address] [place] [address], [facility] documented in this encounter Visit Diagnoses Not on filedocumented in this encounter Additional Health Concerns Infection Onset Date Last Indicated Resolved Time COVID-19 Under Investigation 09/13/2024 09/13/2024 09/13/2024 6:36 AM CDT documented as of this encounter Care Teams Auto Mechanic Relationship Specialty Start Date End Date Jeff Strickland MD [address] [place] [address] PCP - General 03/05/18 [place] [address] [address] Orthopedic Surgery 03/28/17 documented as of this encounter
--- OUTSIDE RECORDS SUMMARY | 2024-10-30 19:27 | XMS_ITS | Encounter Summary ---
Author Organization [facility] Address [facility] [place] [address] Care Team Providers Care Collections Associate Name Role Phone Deandre Bojorquez MD Unavailable [phone] Jeff Strickland MD Primary Care Provider [phone] Encounter Details Date Type Department Care Team (Late st Contact Info) Description 04/29/2024 Lab Requisition [facility] MAIN LAB [address] [place] [phone] Alan Davenport MD [facility] OF ABD TRANSPL[place] [address] Social History Tobacco Use Types Packs/Day Years Used Date Smoking Tobacco: Never Smokeless Tobacco: Never Alcohol Use Standard Drinks/Week Comments Not Currently 0 (1 standard drink = 0.6 oz pur e alcohol) socially in past Sex and Gender Information Value Date Recorded Sex Assigned at Male 07/02/2021 2:37 PM CDT Legal Sex Male 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 Gender Identity Male 07/02/2021 2:37 PM [...] Description 12/06/2024 10:40 AM CDT Office Visit [facility] - Endocrinology [address] [facility], [place] [address] Marbin Flores MD [address] [facility] DIV OF ABD [place] [address] Niraj Turner MD 1225 [facility] 2L [place] [address] documented as of this encounter Procedures Procedure Name Priority Date/Time Associated Diagnosis Comments HOLD HLA SPECIMEN Routine 04/27/2024 1:4 8 PM CDT documented in this encounter Results * HOLD HLA SPECIMEN (04/27/2024 1:48 PM CDT) Hold HLA Specimen 04/29/2024 3:02 PM CDT [facility] ([facility]) Comment:The Hold HLA specime n has been received into the lab and will be held for 5 years at 4 degrees. Blood BLOOD SPECIMEN / Unknown 04/27/2024 1:48 PM CDT 04/29/2024 1:49 PM CDT Alan Davenport MD LAB - BLOOD BANK ORDERABLES F inal Result [facility] [address] [place] [address], [facility] documented in this encounter Visit Diagnoses Not on filedocumented in this encounter Additional Health Concerns Infection Onset Date Last Indicated Resolved Time COVID-19 Under Investigation 09/13/2024 09/13/2024 09/13/2024 6:36 AM CDT documented as of this encounter Care Teams Collections Associate Relationship Specialty Start Date End Date Jeff Strickland MD [address] [place] [address] PCP - General 03/05/18 [place] [address] [facility] [address] [place] [address] Orthopedic Surgery 03/28/17 documented as of this encounter
--- OUTSIDE RECORDS SUMMARY | 2024-10-30 19:27 | XMS_ITS | Encounter Summary ---
Author Organization [facility] Address [address] [facility] [place] [address] Care Team Providers Care Regional Rehabilitation Director Name Role Phone Deandre Bojorquez MD Unavailable [phone] Jeff Strickland MD Primary Care Provider [phone] Reason for Visit * Reason Onset Date Comments Post-Op 09/03/2024 Encounter Details Date Type Department Care Team (Late st Contact Info) Description 09/03/2024 Telephone [facility] - Cardiology [address] [facility], [facility] [address] [place] [address] Hannah Goodman MD [address] [facility] CARD[facility] 2L [place] [address] Post-Op Social History Tobacco Use Types Packs/Day [...] and heating? Not hard at all 09/04/2024 [facility] [place] of Occupat ional Health - Occupational Stress [...] any time in the past 12 m [facility], were you homeless or living in a correction (including now)? No 09/04/2024 Sex and Gender Information Value Date Recorded Sex Assigned at Male 07/02/2021 2:37 PM CDT Legal Sex Male 10:14 PM TOUR LEADER Gender Identity Male 07/02/2021 2:37 PM CDT [...] confused post op Patient Call Back number: [phone] documented in this encounter Plan of Treatment Upcoming Encounters Date Type Department Care Team (Late st Contact Info) Description 12/06/2024 10:40 AM CDT Office Visit [facility] - Endocrinology [facility], [place] [phone] Marbin Flores MD 1201 [facility] DIV [place] [address] Niraj Turner MD 1225 [facility] 2L [place] [address] documented as of this encounter Visit Diagnoses Not on filedocumented in this encounter Additional Health Concerns Infection Onset Date Last Indicated Resolved Time COVID-19 Under Investigation 09/13/2024 09/13/2024 09/13/2024 6:36 AM CDT documented as of this encounter Care Teams Regional Rehabilitation Director Relationship Specialty Start Date End Date Jeff Strickland MD [address] [place] [address] PCP - General 03/05/18 [place] [address] [address] Orthopedic Surgery 03/28/17 documented as of this encounter
--- OUTSIDE RECORDS SUMMARY | 2024-10-30 19:27 | XMS_ITS | Encounter Summary ---
Author Organization [facility] Address [address] [place] [address] Care Team Providers Care Ordering Machine Operator Name Role Phone Deandre Bojorquez MD Unavailable [phone] Jeff Strickland MD Primary Care Provider [phone] Encounter Details Date Type Department Care Team (Late st Contact Info) Description 09/24/2024 Results Follow-Up [facility] Early Admission Unit [address] [place] [phone] Angel Crook MD [address] [place] [address] Social History Tobacco Use Types Packs/Day Years [...] and heating? Not hard at all 09/24/2024 [facility] of Occupat ional Health - Occupational Stress [...] any time in the past 12 m [facility], were you homeless or living in a usp (including now)? 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 Never 09/24/2024 4:31 AM Francy Farley RN Q2: How many drinks containing alcohol do you have on a typical day when you are drinking? Patient does not drink 09/24/2024 4:31 AM ELIANAT Francy Vigil RN Q3: How often do you have six or more drinks on one occasion? Never 09/24/2024 4:31 AM CDT Francy Vigil RN * Audit-C Score Answer Date of Assessment Author 0 09/24/2024 4:31 AM ELIANAT Francy Vigil RN * Is person deaf or have serious hearing difficulty? Answer Date of Assessment Author No 09/24/2024 5:33 AM Francy Farley RN * Is person blind or have serious difficulty seeing? Answer Date of Assessment Author No 09/24/2024 5:33 AM ELIANAT Francy Vigil RN * Does person have serious difficulty walking/climbing stairs? Answer Date of Assessment Author No 09/24/2024 5:33 AM ELIANAT Francy Vigil RN * Does person have difficulty dressing/bathing? Answer Date of Assessment Author No 09/24/2024 5:33 AM Francy Farley RN * Does person have difficulty doing [...] Description 12/06/2024 10:40 AM CDT Office Visit [facility] - Endocrinology [address] [place] [address], [place] [address] Marbin Flores MD 1201 [facility] DIV OF ABD [place] [address] Niraj Turner MD 1225 [facility] 2L [place] [address] documented as of this encounter Visit Diagnoses Not on filedocumented in this encounter Care Teams Ordering Machine Operator Relationship Specialty Start Date End Date Jeff Strickland MD [address] [place] [address] PCP - General 03/05/18 [place] [address] [place] [address] Orthopedic Surgery 03/28/17 documented as of this encounter
--- OUTSIDE RECORDS SUMMARY | 2024-10-30 19:27 | XMS_ITS | Encounter Summary ---
Author Organization [facility] Address [facility] [place] [address] Care Team Providers Care Meter/Relay Craftsman Name Role Phone Deandre Bojorquez MD Unavailable [phone] Jeff Strickland MD Primary Care Provider [phone] Encounter Details Date Type Department Care Team (Late st Contact Info) Description 11/21/2023 Lab Requisition [facility] MAIN LAB [address] [place] [phone] Alan Davenport MD [facility]1 [facility] OF ABD [place] [address] Social History Tobacco Use Types Packs/Day Years Used Date Smoking Tobacco: Never Smokeless Tobacco: Never Alcohol Use Standard Drinks/Week Comments Not Currently 0 (1 standard drink = 0.6 oz pur e alcohol) socially in past Sex and Gender Information Value Date Recorded Sex Assigned at Male 07/02/2021 2:37 PM CDT Legal Sex Male 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 2L Div [place] [address] documented as of this encounter Procedures Procedure Name Priority Date/Time Associated Diagnosis Comments HOLD HLA SPECIMEN Routine 11/18/2023 12: 16 PM CDT documented in this encounter Results * HOLD HLA SPECIMEN (11/18/2023 12:16 PM CDT) Hold HLA Specimen 11/21/2023 1:31 PM CDT [facility] ([facility]) Comment:The Hold HLA specime n has been received into the lab and will be held for 5 years at 4 degrees. Blood BLOOD SPECIMEN / Unknown 11/18/2023 12:16 PM CDT 11/21/2023 12:17 PM CDT Alan Davenport MD LAB - BLOOD BANK ORDERABLES F inal Result [facility] [address] [place] [address], [facility] documented in this encounter Visit Diagnoses Not on filedocumented in this encounter Additional Health Concerns Infection Onset Date Last Indicated Resolved Time COVID-19 Under Investigation 09/13/2024 09/13/2024 09/13/2024 6:36 AM CDT documented as of this encounter Care Teams Meter/Relay Craftsman Relationship Specialty Start Date End Date Jeff Strickland MD [address] [place] [address] PCP - General 03/05/18 [place] [address] [facility] [address] [place] [address] Orthopedic Surgery 03/28/17 documented as of this encounter
--- OUTSIDE RECORDS SUMMARY | 2024-10-30 19:27 | XMS_ITS | Encounter Summary ---
Author Organization [facility] Healthcare Address [address] [place] [address] Care Team Providers Care Door Person Name Role Phone Jeff Strickland MD Primary Care Provider Chan Nicholas MD Unavailable [phone] Alan Mccall MD Unavailable [phone] Pepito Haro MD PhD Unavailable Solange Guido MD Unavailable [phone] Encounter Details Date Type Department Care Team (Late st Contact Info) Description 07/26/2024 Orders Only [facility] [place] Health Information Management [address] [place] [address] Scanning, Provider Social History Tobacco Use Types Packs/Day Years Used Date Smoking Tobacco: Never Smokeless Tobacco: Never Alcohol Use Standard Drinks/Week Comments Yes 0 (1 standard drink = 0.6 oz pur e alcohol) rarely [facility] Utilities Answer Date Recorded In the past 12 months has [employer] electric, gas, oil, or water company threatened [...] often do you attend chur ch or sabianism services? Never 03/25/2023 Do you belong to any clubs o r organizations such as judaism groups, unions, fraternal or athletic groups, or [...] in a nursing home (including now)? No 03/25/2023 Housing Stability [...] on file Legal Sex Male 2:23 AM SERVICE SUPPORT REPRESENTATIVE Gender Identity Not on file Sexual [...] on filedocumented in this encounter Care Teams Door Person Relationship Specialty Start Date End Date Jeff Strickland MD [address] [place] [address] [address] PCP - General Family Medicine 04/02/18 Chan Nicholas MD [facility] STATE [address] [address] Consulting Physician Gastroenterology 11/24/18 Alan Mccall MD [address] [place] [address] [address] Referring Physician Nephrology 11/24/18 Pepito Haro MD PhD [facility] [address] [place] [id number] Consulting Physician Neurosurgery 12/03/22 Solange Guido MD [address] [facility] [address] [place] [address] Referring Physician Cardiovascular Disease 07/23/23 documented as of this encounter
--- OUTSIDE RECORDS SUMMARY | 2024-10-30 19:27 | XMS_ITS | Clinical Summary ---
Author Organization [facility] Address [address] [place] [address] Phone Care Team Providers Care Lunch Truck Driver Name Role Phone Jeff Strickland MD Primary Care Provider [phone] Allergies No known active allergies Medications pantoprazole [...] tablet Take 112 mcg by mouth daily expediter service order. Active aspirin (ANGELLA) 325 mg tablet Take 325 mg by mouth daily. Active Vit C-Vit Z-Cfmnrz-SwFw-L utein (PRESERVISION) 226 mg-200 unit -5 mg-0.8 [...] Comments Blood Pressure 167/77 02/04/2019 9:16 AM VEST TAILOR Pulse 64 02/04/2019 9:16 AM VEST TAILOR Temperature 36.5 C (97.7 F) 02/04/2019 9:16 AM VEST TAILOR Respiratory Rate 16 02/04/2019 9:16 AM VEST TAILOR Oxygen Saturation 97% 02/04/2019 9:16 AM VEST TAILOR Inhaled Oxygen Concentration - - Weight 113.4 kg (250 lb) 02/04/2019 9:16 AM VEST TAILOR Height 175.3 cm (5' 9) 02/04/2019 9:16 AM VEST TAILOR Body Mass Index 36.92 02/04/2019 9:16 AM VEST TAILOR Plan of Treatment Health Maintenance Due Date [...] FOOT EXAM 10/18/2022 10/18/2021 INFLUENZA VACCINE (#1) 2024 , 01/17/2020, 01/17/2020, Additional history exists COVID-19 Vaccine (4 - 2024-2 6 season) 2024 05/05/2020, 04/20/2020, 03/20/2020 DIABETES ANNUAL RETINAL EXAM 03/09/2025, 12/10/2023, 10/08/2023 DIABETES HBA1C Q 6 MONTHS 03/28/20252024, 06/16/2024, 04/23/2024, Additional history exists DTAP/TDAP/TD VACCINES (3 - T d or Tdap) 04/10/2026 04/10/2016, 04/09/2016 Insurance [employer] BLUE ACCESS/TRUE BLUE PPO [employer] MEDICARE SUPPLEMENT PPO [facility] BLUE ACCESS/TRUE BLUE PPO Care Teams Lunch Truck Driver Relationship Specialty Start Date End Date Jeff Strickland MD [address] [facility] [address] [place] [address] PCP - General Family Practice 01/01/19
--- OUTSIDE RECORDS SUMMARY | 2024-10-30 19:27 | XMS_ITS | Encounter Summary ---
Author Organization [facility] Address [address] [place] [address] Care Team Providers Care Panel Machine Tender Name Role Phone Deandre Bojorquez MD Unavailable [phone] Jeff Strickland MD Primary Care Provider [phone] Encounter Details Date Type Department Care Team (Late st Contact Info) Description 09/10/2024 Telephone [facility] - Centralized Scheduling [facility]1 [place] [address] Niraj Turner MD [facility] [place] [address] Social History Tobacco Use Types Packs/Day Years [...] and heating? Not hard at all 09/14/2024 [facility] of Occupat [facility] - Occupational Stress Questionnaire Answer [...] were you homeless or living in a jail (including now)? No 09/14/2024 Sex and Gender Information Value Date Recorded Sex Assigned at Male 07/02/2021 2:37 PM CDT Legal Sex Male 10:14 PM SENIOR TALENT MANAGEMENT CONSULTANT Gender Identity Male 07/02/2021 2:37 PM CDT [...] Author 0 09/13/2024 7:52 PM CDT Marie Og RN * Is person deaf or have [...] 09/06/2024 1:34 PM CDT Vipin Camarena RN documented as of this encounter Mental Status * Does person have difficulty concentrating/remembering/making decisions? Answer Entry Date Author No 09/06/2024 1:34 PM CDT Vipin Camarena RN documented in this encounter Plan of Treatment Upcoming Encounters Date Type Department Care Team (Late st Contact Info) Description 12/06/2024 10:40 AM CDT Office Visit [facility] Group - Endocrinology [address] [place] [address], [place] [address] Marbin Flores MD 1201 [facility] DIV OF [place] [address] Niraj Turner MD 1225 [facility] 2L [place] [address] documented as of this encounter Visit Diagnoses Not on filedocumented in this encounter Additional Health Concerns Infection Onset Date Last Indicated Resolved Time COVID-19 Under Investigation 09/13/2024 09/13/2024 09/13/2024 6:36 AM CDT documented as of this encounter Care Teams Panel Machine Tender Relationship Specialty Start Date End Date Jeff Strickland MD [address] [place] [address] PCP - General 03/05/18 [place] [address] [place] [address] Orthopedic Surgery 03/28/17 documented as of this encounter
--- OUTSIDE RECORDS SUMMARY | 2024-10-30 19:27 | XMS_ITS | Clinical Summary ---
Author Organization [facility] Address [address], [place] [address] Phone Care Team Providers Care Gopherman Name Role Phone Jeff Strickland MD Primary Care Provider [phone] Allergies No known active allergies Medications levothyroxine [...] tablet 3 0 Active Continuous Blood Gluc Top And Seat Cover Fitter (FreeStyle Em [place]) device 1 each daily 0 Active Continuous Blood Gluc Sensor (FreeStyle Em Sensor System) misc 1 each once every 2 weeks 0 Active Lancets (OneTouch Delica Plus [id number]) misc OneTouch Delica Plus Lancet 33 gauge [...] Overview (12/17/2019): Kendall Carl 1955 Referring Director Of Early Childhood Education: Alan Mccall Dialysis Info: NOD GFR 13 Type: Time: (Not currently on dialysis) days Blood Type: O NEG Body mass index is 37.36 kg/m . ALERTS Signal Timer: needs to establish Past Medical History: Diagnosis Date Arthropathy RA. Dr Strickland manages. 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 CKD (chronic kidney disease), stage V Community acquired pneumonia 2018 [facility] hospitalized. Diabetes mellitus 20 years. Lantus pen. Esophageal reflux takes med Hypercholesteremia 5-10 yrs meds Hypertension takes meds Hypothyroidism meds 20 years Kidney stones 5-6 years ago had 2 in the same year. Malignancy right kidney 2012 Obstructive sleep apnea 3 years. [facility]. Angela remember doctors name Renal cell [...] Impression: It is the impression of this nephrology social worker that Kendall Gillris has several positive factors for Kidney transplant candidacy from a psychosocial perspective. Patient appears to have appropriate knowledge of illness. Patient has sufficient insurance coverage and stable financial situation for post transplant needs. No concerns regarding substance abuse, legal issues, or mental health needs. Patient has adequate support system and appropriate discharge plan. Plan: log pond worker to provide supportive services as needed. Patient appears to be a reasonable candidate for transplant from a psychosocial perspective. -Post transplant arrangement forms are needed prior to being listed. -Updated toxicology results needed, per protocol Psychiatric Consult Recommended: No Transplant Forestry Extension Specialist: Joy Tam LCSW RD: 11/09/2019 BMI= [...] use my fitness pal or my food elementary instructional coach) - Consume no more than [...] nephrectomy. 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 [id number] Immunizations Immunization Administration Dates Next Due Influenza [...] Insurance [employer] PM INTERFACED INSURANCE Care Teams Gopherman Relationship Specialty Start Date End Date Jeff Strickland MD [address] [facility] [address] [facility] [address] [place] [address] PCP - General Internal Medicine 07/15/18
--- OUTSIDE RECORDS SUMMARY | 2024-10-30 19:27 | XMS_ITS | Encounter Summary ---
Author Organization [facility] Address [address] [place] [address] Care Team Providers Care Building Repair Maintenance Supervisor Name Role Phone Deandre Bojorquez MD Unavailable [phone] Jeff Strickland MD Primary Care Provider [phone] Encounter Details Date Type Department Care Team (Late st Contact Info) Description 02/04/2024 Lab Requisition [facility] MAIN LAB [address] [place] [id number] Alan Davenport MD [facility] [place] [address] Social History Tobacco Use Types Packs/Day Years Used Date Smoking Tobacco: Never Smokeless Tobacco: Never Alcohol Use Standard Drinks/Week Comments Not Currently 0 (1 standard drink = 0.6 oz pur e alcohol) socially in past Sex and Gender Information Value Date Recorded Sex Assigned at Male 07/02/2021 2:37 PM CDT Legal Sex Male 10:14 PM QUALITY CONTROL ANALYST Gender Identity Male 07/02/2021 2:37 PM [...] Description 12/06/2024 10:40 AM CDT Office Visit [facility] - Endocrinology [address] [facility], [place] [address] Marbin Flores MD [address] [facility] DIV OF [place] [address] Niraj Turner MD [address] [facility] 2[address] Div of [place] [address] documented as of this encounter Procedures Procedure Name Priority Date/Time Associated Diagnosis Comments HOLD HLA SPECIMEN Routine 01/27/2024 3:2 3 PM QUALITY CONTROL ANALYST documented in this encounter Results * HOLD HLA SPECIMEN (01/27/2024 3:23 PM QUALITY CONTROL ANALYST) Hold HLA Specimen 02/04/2024 4:31 PM QUALITY CONTROL ANALYST [facility] Comment:The Hold HLA specime n has been received into the lab and will be held for 5 years at 4 degrees. Blood BLOOD SPECIMEN / Unknown 01/27/2024 3:23 PM QUALITY CONTROL ANALYST 02/04/2024 3:23 PM QUALITY CONTROL ANALYST Alan Davenport MD LAB - BLOOD BANK ORDERABLES F inal Result [facility] [address] [place] [address], [facility] documented in this encounter Visit Diagnoses Not on filedocumented in this encounter Additional Health Concerns Infection Onset Date Last Indicated Resolved Time COVID-19 Under Investigation 09/13/2024 09/13/2024 09/13/2024 6:36 AM CDT documented as of this encounter Care Teams Building Repair Maintenance Supervisor Relationship Specialty Start Date End Date Jeff Strickland MD [address] [place] [address] PCP - General 03/05/18 [place] [address] [address] Orthopedic Surgery 03/28/17 documented as of this encounter
--- OUTSIDE RECORDS SUMMARY | 2024-10-30 19:27 | XMS_ITS | Encounter Summary ---
Author Organization [facility] Address [facility] [place] [address] Care Team Providers Care Environmental Systems Coordinator Name Role Phone Deandre Bojorquez MD Unavailable [phone] Jeff Strickland MD Primary Care Provider [phone] Encounter Details Date Type Department Care Team (Late st Contact Info) Description 03/30/2024 Lab Requisition [facility] MA[facility] [address] [place] [id number] Alan Davenport MD [facility] OF ABD TRANSPLANT [place] [address] Social History Tobacco Use Types Packs/Day Years Used Date Smoking Tobacco: Never Smokeless Tobacco: Never Alcohol Use Standard Drinks/Week Comments Not Currently 0 (1 standard drink = 0.6 oz pur e alcohol) socially in past Sex and Gender Information Value Date Recorded Sex Assigned at Male 07/02/2021 2:37 PM CDT Legal Sex Male 10:14 PM WAREHOUSE EXAMINER Gender Identity Male 07/02/2021 2:37 PM CDT [...] [facility] - [facility]inology [address] [facility], [place] [address] Marbin Flores MD [address] [facility] DIV OF ABD TRANSPLANT [place] [address] Niraj Turner MD [address] [facility] 2L [place] [address] documented as of this encounter Procedures Procedure Name Priority Date/Time Associated Diagnosis Comments HOLD HLA SPECIMEN Routine 03/25/2024 2:5 1 PM WAREHOUSE EXAMINER documented in this encounter Results * HOLD HLA SPECIMEN (03/25/2024 2:51 PM WAREHOUSE EXAMINER) Hold HLA Specimen 03/30/2024 4:01 PM WAREHOUSE EXAMINER [facility] Comment:The Hold HLA specime n has been received into the lab and will be held for 5 years at 4 degrees. Blood BLOOD SPECIMEN / Unknown 03/25/2024 2:51 PM WAREHOUSE EXAMINER 03/30/2024 2:51 PM WAREHOUSE EXAMINER Alan Davenport MD LAB - BLOOD BANK ORDERABLES F inal Result [facility] [address] [place] [address], [facility] documented in this encounter Visit Diagnoses Not on filedocumented in this encounter Additional Health Concerns Infection Onset Date Last Indicated Resolved Time COVID-19 Under Investigation 09/13/2024 09/13/2024 09/13/2024 6:36 AM CDT documented as of this encounter Care Teams Environmental Systems Coordinator Relationship Specialty Start Date End Date Jeff Strickland MD [address] [place] [address] PCP - General 03/05/18 [place] [address] [address] Orthopedic Surgery 03/28/17 documented as of this encounter
--- OUTSIDE RECORDS SUMMARY | 2024-10-30 19:27 | XMS_ITS | Patient Health Record ---
Author Organization [facility] [employer] [facility] Address [address] [place] [address] Care Team Providers Care Outboard Motor Inspector Name Role Phone Trenton Hernandez Unavailable [phone] Reason For Referral No Information Medications Medication SIG (Take, Route, Frequency, Duration) Notes Start Date End Date Status Acetaminophen Extra Strength 500 MG Tablet Oral 02/26/2023 Active Lisinopril 20 MG Tablet Oral 02/26/2023 Active HYDROcodone-Acetamino phen 5-325 MG Tablet Oral 02/26/2023 Active Sertraline HCl 25 MG Tablet Oral 02/26/2023 Active Aspirin Adult Low Strength 81 MG Tablet Delayed Release Oral 02/26/2023 Active Metoclopramide HCl 10 MG Tablet Oral 02/26/2023 Active VITAMIN D3 125 MCG (5,000 UNIT)-FOLIC ACID 1 MG TABLET *Reorder from [facility] for eRx and Interaction Alerts* 02/26/2023 Active Azelastine HCl 137 MCG/SPRAY Solution Nasal 02/26/2023 Active Dilt-XR 240 MG Capsule Extended Release 24 Hour Oral 02/26/2023 Active Potassium Chloride ER 10 MEQ Tablet Extended Release Oral 02/26/2023 Active Mounjaro 2.5 MG/0.5ML Solution Pen-injector Subcutaneous *Reorder from [facility] for eRx and Interaction Alerts* 02/26/2023 Active Methocarbamol 500 MG Tablet Oral 02/26/2023 Active Levothyroxine Sodium 112 MCG Tablet Oral 02/26/2023 Active Atorvastatin Calcium 80 MG Tablet Oral 02/26/2023 Active Gabapentin 100 MG Capsule Oral 02/26/2023 Active SODIUM BICARBONATE 1,650 MG-CITRIC ACID 1,000 MG EFFERVESCENT TABLET *Reorder from [facility] for eRx and Interaction Alerts* 02/26/2023 Active Sevelamer Carbonate 800 MG Tablet Oral 02/26/2023 Active IPRATROPIUM BROMIDE 21 MCG (0.03 %) NASAL SPRAY *Reorder from [facility] for eRx and Interaction Alerts* 02/26/2023 Active Sodium Bicarbonate 650 MG Tablet Oral 02/26/2023 Active Finasteride 5 MG Tablet Oral 02/26/2023 Active Basaglar KwikPen 100 UNIT/ML Solution Pen-injector Subcutaneous 02/26/2023 Active Belsomra 20 mg Tablet Oral 02/26/2023 Active Furosemide 80 MG Tablet Oral 02/26/2023 Active traMADol HCl 50 MG Tablet Oral 02/26/2023 Active Sucralfate 1 GM Tablet Oral 02/26/2023 Active Sertraline HCl 100 MG Tablet Oral 02/26/2023 Active hydrOXYzine Pamoate 50 MG Capsule Oral 02/26/2023 Active Carvedilol 25 MG Tablet Oral 02/26/2023 Active Cefdinir 300 MG Capsule Oral 02/26/2023 Active Lidocaine Pain Relief 4 % ADHESIVE PATCH, MEDICATED TOPICAL *Pick strength-form from [facility] for eRX* 02/26/2023 Active Amoxicillin-Pot Clavulanate 875-125 MG Tablet Oral 02/26/2023 Active Amoxicillin 500 MG Capsule Oral 02/26/2023 Active guanFACINE HCl ER 3 MG Tablet Extended Release 24 Hour Oral 02/26/2023 Active Tamsulosin HCl 0.4 MG Capsule Oral 02/26/2023 Active SEVELAMER HCL 800 MG TABLET *Reorder from [facility] for eRx and Interaction Alerts* 02/26/2023 Active LEVOTHYROXINE 112 MCG CAPSULE *Reorder from [facility] for eRx and Interaction Alerts* 02/26/2023 Active ULTRA-FINE SHORT PEN NEEDLE 31 gauge x 5/16 NEEDLE, DISPOSABLE MISCELLANEOUS *Reorder from [facility] for eRx and Interaction Alerts* 02/26/2023 Active Tylenol PM Extra Strength *Pick strength-form from [facility] for eRX* 02/26/2023 Active Mounjaro 5 MG/0.5ML Solution Pen-injector Subcutaneous *Reorder from [facility] for eRx and Interaction Alerts* 02/26/2023 Active LORazepam 0.5 MG Tablet Oral 02/26/2023 Active Aspirin 81 MG Tablet Chewable Oral 02/26/2023 Active Escitalopram Oxalate 10 MG Tablet Oral 02/26/2023 Active Fenofibrate 145 MG Tablet Oral 02/26/2023 Active Pantoprazole Sodium 40 MG Tablet Delayed Release Oral 02/26/2023 Active Social History Social History Additional Details Category Social Info Options Details Migrated Social History Migrated Social History Alcohol Intake: None 02/26/2023,Tobacco Years: Never smoker 02/26/2023 Plan Of Treatment No Information Insurance Providers Payer Name Payer Address Payer Phone Subscriber Number Group Number Insured Name Patient Relationship to Insured Coverage Start Date Coverage End Date A[employer] [address] [place] [id number] [id number] GRACE INTERIANO Self - patient is the insured Medical (General) History Surgical History Surgery Date(Month/Year) Removal of gallbladder (41743) Cataract surgery (65552) 02/17/2013 Sinus surgery 02/17/2021 Cardiac stent 07/18/2021
--- OUTSIDE RECORDS SUMMARY | 2024-10-30 19:28 | XMS_ITS | Clinical Summary ---
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 mediasinal widening Technologist Note: Additional: COMPARISON: Chest x-ray 10/17/2024 FINDINGS/IMPRESSION: Sternal fixation plates are intact. Similar rounded density in the right upper lung, likely granuloma. There is no focal consolidation, pleural effusion, or pneumothorax.Normal pulmonary vasculature.The cardiomediastinal silhouette is normal. Degenerative changes are noted in the thoracic spine and shoulders. > Dictated by Branden Jha MD, (manager residential). > Dictated by Police Stenographer I, Blake Plasencia MD have personally reviewed and interpreted this examination/study. > Interpreting Provider: Blake Plasencia MD on 10/28/2024 3:32 AM Procedure Note Blake Plasencia MD - 10/28/2024 PROCEDURE: XR CHEST 2VW, DATE/TIME OF EXAM: 10/27/2024 11:58 PM, LOCATION [facility] INDICATION: R07.9: Chest pain, unspecified type ADDITIONAL CLINICAL INFORMATION: Ordering Provider Reason For Exam: r/o mediasinal widening Technologist Note: Additional: COMPARISON: Chest x-ray 10/17/2024 FINDINGS/IMPRESSION: Sternal fixation plates are intact. Similar rounded density in the right upper lung, likely granuloma. Thereis no focal consolidation, pleural effusion, or pneumothorax.Normalpulmonary vasculature.The cardiomediastinal silhouette is normal. Degenerative changes are noted in the thoracic spine and shoulders. > Dictated by Branden Jha MD, (manager residential). > Dictated by Police Stenographer I, Blake Plasencia MD have personally reviewed and interpreted this examination/study. > Interpreting Provider: Blake Plasencia MD on 10/28/2024 3:32 AM Savanna Mcfarlane MD DIAGNOSTIC IMAGING ORDERABLES Final Result * (ABNORMAL) TROPONIN-I HIGH SENSITIVE BASELINE + 1HR (10/27/2024 11:53 PM CDT) Only the most recent of8 resultswithin the time period is included. Troponin I High Sensitive 72(H) <=35 ng/L 10/28/2024 12:49 AM [facility] Blood BLOOD SPECIMEN / Unknown Venipuncture / Unknown 10/27/2024 11:53 PM CDT 10/28/2024 12:12 AM CDT us Savanna Mcfarlane MD LAB - CHEMISTRY ORDERABLES Fi nal Result [address] [address], [facility] [phone] * (ABNORMAL) CBC W AUTO DIFFERENTIAL (10/27/2024 11:53 PM CDT) Only the most recent of11 resultswithin the time period is included. WBC 7.8 4.0 - 10.7 x10E9/L 10/28/2024 12:26 AM [facility] RBC Count 3.31(L) 4.30 - 5.80 x10E12/L 10/28/2024 12:26 AM [facility] Hemoglobin 9.0(L) 13.3 - 17.5 g/dL 10/28/2024 12:26 AM [facility] Hematocrit 27.9(L) 38.7 - 51.1 % 10/28/2024 12:26 AM [facility] MCV 84.3 80.0 - 98.0 fL 10/28/2024 12:26 AM [facility] MCH 27.2 26.7 - 33.6 pg 10/28/2024 12:26 AM [facility] MCHC 32.3 31.7 - 36.3 g/dL 10/28/2024 12:26 AM [facility] RDW-CV 15.9(H) 11.3 - 14.8 % 10/28/2024 12:26 AM [facility] Platelet Count 187 150 - 420 x10E9/L 10/28/2024 12:26 AM [facility] MPV 10.2 7.8 - 11.4 fL 10/28/2024 12:26 AM [facility] Neutrophil % 67.0 41.0 - 74.0 % 10/28/2024 12:26 AM [facility] Lymphocyte % 16.4(L) 17.0 - 47.0 % 10/28/2024 12:26 AM [facility] Monocyte % 14.0(H) 3.0 - 11.0 % 10/28/2024 12:26 AM [facility] Eosinophil % 1.9 0.0 - 7.0 % 10/28/2024 12:26 AM [facility] Basophil % 0.1 0.0 - 1.6 % 10/28/2024 12:26 AM [facility] Immature Granulocytes % 0.6 0.0 - 1.0 % 10/28/2024 12:26 AM [facility] Neutrophil Absolute 5.23 1.60 - 7.50 x10E9/L 10/28/2024 12:26 AM [facility] Lymphocyte Absolute 1.28 1.00 - 4.40 x10E9/L 10/28/2024 12:26 AM [facility] Monocyte Absolute 1.09(H) 0.15 - 1.00 x10E9/L 10/28/2024 12:26 AM [facility] Eosinophil Absolute 0.15 0.00 - 0.60 x10E9/L 10/28/2024 12:26 AM [facility] Basophil Absolute 0.01 0.00 - 0.13 x10E9/L 10/28/2024 12:26 AM [facility] Blood BLOOD SPECIMEN / Unknown Venipuncture / Unknown 10/27/2024 11:53 PM CDT 10/28/2024 12:13 AM CDT us Savanna Mcfarlane MD LAB - HEMATOLOGY ORDERABLES F inal Result [facility] [address] [place] [address], [facility] [phone] * (ABNORMAL) COMPREHENSIVE METABOLIC PANEL (10/27/2024 11:53 PM CDT) Only the most recent of13 resultswithin the time period is included. BUN 34(H) 7 - 26 mg/dL 10/28/2024 12:45 AM [facility] Creatinine 7.86(H) 0.71 - 1.16 mg/dL 10/28/2024 12:45 AM [facility] Sodium 132(L) 136 - 145 mmol/L 10/28/2024 12:45 AM [facility] Potassium 3.5 3.5 - 4.5 mmol/L 10/28/2024 12:45 AM [facility] Chloride 95(L) 98 - 107 mmol/L 10/28/2024 12:45 AM [facility] CO2 25 22 - 29 mmol/L 10/28/2024 12:45 AM [facility] Glucose 104(H) 70 - 99 mg/dL 10/28/2024 12:45 AM [facility] Calcium 8.5 8.4 - 10.2 mg/dL 10/28/2024 12:45 AM [facility] Protein Total 5.6(L) 6.0 - 8.3 g/dL 10/28/2024 12:45 AM [facility] Albumin 2.2(L) 3.4 - 5.0 g/dL 10/28/2024 12:45 AM [facility] Bilirubin Total 0.3 0.2 - 1.2 mg/dL 10/28/2024 12:45 AM [facility] Alkaline Phosphatase 104 40 - 150 U/L 10/28/2024 12:45 AM [facility] ALT 56(H) 5 - 55 U/L 10/28/2024 12:45 AM [facility] AST 48(H) 5 - 34 U/L 10/28/2024 12:45 AM [facility] Anion Gap 12 6 - 16 10/28/2024 12:45 AM [facility] BUN/Creatinine Ratio 4(L) 7 - 23 10/28/2024 12:45 AM [facility] Osmolality Calculated 282 275 - 295 mOsm/kg 10/28/2024 12:45 AM [facility] Albumin/Globulin Ratio 0.6(L) 1.1 - 2.3 10/28/2024 12:45 AM [facility] eGFR by CKD-EPI 7(L) >=90 mL/min/1.7 3 m2 10/28/2024 12:45 AM CDT [facility] Comment:Estimated Glomerular Filtration Rate (eGFR) calculated using the CKD-EPI Creatinine Equation (2020), per the National Kidney Foundation and [place] [employer]ph[employer] recommendations. Blood BLOOD SPECIMEN / Unknown Venipuncture / Unknown 10/27/2024 11:53 PM CDT 10/28/2024 12:12 AM CDT Savanna Mcfarlane MD LAB - CHEMISTRY ORDERABLES Fi nal Result Performing Organization Address City/[facility]/ZIP Co de Phone Number [address] [address], [place] [phone] * LIPASE BLOOD (10/27/2024 11:53 PM CDT) Only the most recent of3 resultswithin the time period is included. Lipase 41 8 - 78 U/L 10/28/2024 12:45 AM CDT [facility] Blood BLOOD SPECIMEN / Unknown Venipuncture / Unknown 10/27/2024 11:53 PM CDT 10/28/2024 12:12 AM CDT Narrative [facility] - 10/28/2024 12:45 AM CDT Lipase results from the Matthew Alinity analyzer may not be comparable with other methodologies. us Savanna Mcfarlane MD LAB - CHEMISTRY ORDERABLES Fi nal Result Performing Organization Address City/[facility]/ZIP Co de Phone Number [address] [address], [place] [phone] * (ABNORMAL) PTH INTACT ([facility]) (10/21/2024 1:11 PM CDT) Only the most recent of2 resultswithin the time period is included. PTH Intact 316.8(H) 8.0 - 77.0 pg/mL 10/21/2024 1:56 PM CDT [facility] Blood BLOOD SPECIMEN / Unknown Lab Venipuncture / Unknown 10/21/2024 1:11 PM CDT 10/21/2024 1:23 PM CDT Result [facility] Becky Wlison MD LAB - CHEMISTRY ORDERABLES Fin al Result [address] [address], [place] [phone] * LAB MISC TEST (10/21/2024 1:11 PM CDT) [facility] Test Name PHOSPHO-TAU 217 PLASMA 10/25/2024 12:29 PM CDT [employer] Test Result See Scanned Report 10/25/2024 12:29 PM CDT [facility] Comment Ref Lab [place] 10/25/2024 12:29 PM CDT [facility] Blood BLOOD SPECIMEN / Unknown Lab Venipuncture / Unknown 10/21/2024 1:11 PM CDT 10/21/2024 1:15 PM CDT Result [facility] Becky Wilson MD LAB SEND OUT Final Result Performing Organization Address City/[facility] Co de Phone Number [facility] [address] [place] [address] * MAGNESIUM BLOOD (10/21/2024 1:11 PM CDT) Only the most recent of14 resultswithin the time period is included. [facility] Magnesium 1.6 1.6 - 2.6 mg/dL 10/21/2024 1:49 PM CDT [facility] Blood BLOOD SPECIMEN / Unknown Lab Venipuncture / Unknown 10/21/2024 1:11 PM CDT 10/21/2024 1:20 PM CDT Result [facility] Becky Wilson MD LAB - CHEMISTRY ORDERABLES Fin al Result Performing Organization Address [facility]/ZIP Co de Phone Number [address] [address], [place] [phone] * AMMONIA (10/21/2024 1:11 PM CDT) Ammonia 30 <=72 umol/L 10/21/2024 1:32 PM CDT [facility] Blood BLOOD SPECIMEN / Unknown Lab Venipuncture / Unknown 10/21/2024 1:11 PM CDT 10/21/2024 1:15 PM CDT us Becky Wilson MD LAB - CHEMISTRY ORDERABLES Fin al Result [facility] [address] [place] [address], [facility] [phone] * CT Head Wo Contrast (10/19/2024 3:03 PM CDT) Only the most recent of4 resultswithin the time period is included. Anatomical Region Laterality Modality Head Computed Tomogra phy 10/19/2024 3:11 PM CDT Impressions 10/19/2024 3:41 PM CDT IMPRESSION: 1.No acute intracranial hemorrhage, territorial infarct, or significant mass effect. Report dictated by Saroj Linda MD, (manager residential). > Dictated by Police Stenographer I, Raymundo Hanson MD have personally reviewed and interpreted this examination/study. > Interpreting Provider: Raymundo Hanson MD on 10/19/2024 3:41 PM Narrative 10/19/2024 3:[address] HEAD WO CONTRAST DATE: 10/19/2024 3:06 PM EXAMINATION: Computed tomography (CT) of the head without contrast HISTORY: R51.9: Acute nonintractable headache, unspecified headache type TECHNIQUE: CT of the head was performed without contrast according to standard protocol. COMPARISON: CT head dated 10/09/2024 FINDINGS: No acute intra- or extra-axial fluid collections are identified. There is moderate cerebral and cerebellar volume loss with associated ex vacuo ventricular dilatation. The basilar cisterns are patent. No mass effect or midline shift is seen. The mallory-white matter differentiation is normal. Periventricular white matter hypoattenuation is indicative of chronic small vessel ischemic disease. There is vascular calcification of the carotid siphons and V4 segments of bilateral vertebral arteries. Small nonspecific calcifications are noted in the bilateral centrum semiovale. Several areas of calcifications in bilateral basal ganglia and cerebellar hemispheres involving the dentate nuclei. Sinonasal postsurgical and inflammatory changes are noted. There are vascular calcifications in the orbits. No acute calvarial fracture is identified. Other than left cataract extraction, the orbits appear normal. The mastoid air cells are clear. No soft tissue abnormality is identified. Procedure Note Raymundo Hanson MD - 10/19/2024 CT HEAD WO CONTRAST DATE: 10/19/2024 3:06 PM EXAMINATION: Computed tomography (CT) of the head without contrast HISTORY: R51.9: Acute nonintractable headache, unspecified headache type TECHNIQUE: CT of the head was performed without contrast according to standard protocol. COMPARISON: CT head dated 10/09/2024 FINDINGS: No acute intra- or extra-axial fluid collections are identified. Thereis moderate cerebral and cerebellar volume loss with associated ex vacuo ventricular dilatation. The basilar cisterns are patent. No mass effector midline shift is seen. The mallory-white matter differentiation is normal. Periventricular white matter hypoattenuation is indicative of chronicsmall vessel ischemic disease. There is vascular calcification of the carotid siphons and V4 segments of bilateral vertebral arteries. Smallnonspecific calcifications are noted in the bilateral centrum semiovale. Severalareas of calcifications in bilateral basal ganglia and cerebellar hemispheres involving the dentate nuclei. Sinonasal postsurgical and inflammatory changes are noted. There are vascular calcifications in the orbits. No acute calvarial fracture is identified. Other than left cataract extraction, the orbits appear normal. The mastoid air cells are clear.No soft tissue abnormality is identified. IMPRESSION: 1.No acute intracranial hemorrhage, territorial infarct, or significant mass effect. Report dictated by Saroj Linda MD, MD (manager residential). > Dictated by Police Stenographer I, Raymundo Hanson MD have personally reviewed and interpreted this examination/study. > Interpreting Provider: Raymundo Hanson MD on 10/19/2024 3:41 PM Alfreda Smith PA-C CT ORDERABLES Final Result * EKG 12-LEAD (10/19/2024 2:21 PM CDT) Only the most recent of6 resultswithin the time period is included. Pathologist [facility] Ventricular Rate 64 BPM [facility] MUSE Atrial Rate 64 BPM [facility] MUSE P-R Interval 146 ms [facility] MUSE QRS Duration ms 96 ms [facility] MUSE Q-T Interval ms 494 ms [facility] MUSE QTC Calculation (Bezet) 509 ms [facility] MUSE Calculated P Rembert 69 degrees SL MUSE Calculated R Rembert -63 degrees SLH MUSE Calculated T Rembert -90 degrees [facility] MUSE Interpretation EKG NORMAL SINUS RHYTHM LEFT ANTERIOR FASCICULAR BLOCK T WAVE ABNORMALITY, CONSIDER INFEROLATERAL ISCHEMIA PROLONGED QT ABNORMAL ECG . Confirmed by DOUG CAGLE MD ([id number]) on 10/23/2024 11:38:28 PM [facility] MUSE 10/19/2024 2:21 PM CDT 10/23/2024 11:38 PM CDT Alfreda Smith PA-C ECG ORDERABLES Edite d Result - Final [facility] MUSE * (ABNORMAL) B-TYPE NATRIURETIC PEPTIDE (10/17/2024 7:33 PM CDT) Only the most recent of3 resultswithin the time period is included. Pathologist [facility] BNP 471(H) <100 pg/mL 10/17/2024 10:07 PM CDT [facility] Comment: A decision threshold of 100 pg/mL [...] BLOOD SPECIMEN / Unknown Venipuncture / Unknown 10/17/2024 7:33 PM CDT 10/17/2024 7:56 PM CDT Malinda Castro PA-C LAB - CHEMISTRY ORDERABLES Fi nal Result [facility] [place] [id number] [place] [address], [facility] [phone] * XR CHEST 1VW PORTABLE (10/09/2024 7:27 PM CDT) Only the most recent of2 resultswithin the time period is included. Anatomical Region Laterality Modality Chest Digital Radiogra phy 10/09/2024 10:4 9 PM CDT Narrative 10/10/2024 1:17 AM CDT PROCEDURE: XR CHEST 1VW PORTABLE, DATE/TIME OF EXAM: 10/09/2024 7:27 PM, LOCATION [facility] INDICATION: R06.02: Short of breath on exertion ADDITIONAL CLINICAL INFORMATION: Ordering Provider Reason For Exam: r/o effusion, pneumonia Technologist Note: Additional: COMPARISON: Chest x-ray from 10/07/2024. FINDINGS/IMPRESSION: There is no focal consolidation, pleural effusion, or pneumothorax.The cardiomediastinal silhouette is normal. No displaced fractures identified. Hardware projecting over thoracic spine. > Dictated by Otis Bocanegra MD (manager residential). > Dictated by Police Stenographer I, Blake Plasencia MD have personally reviewed and interpreted this examination/study. > Interpreting Provider: Blake Plasencia MD on 10/10/2024 1:17 AM Procedure Note Blake Plasencia MD - 10/10/2024 PROCEDURE: XR CHEST 1VW PORTABLE, DATE/TIME OF EXAM: 10/09/2024 7:27PM, LOCATION [facility] INDICATION: R06.02: Short of breath on exertion ADDITIONAL CLINICAL INFORMATION: Ordering Provider Reason For Exam: r/o effusion, pneumonia Technologist Note: Additional: COMPARISON: Chest x-ray from 10/07/2024. FINDINGS/IMPRESSION: There is no focal consolidation, pleural effusion, or pneumothorax.The cardiomediastinal silhouette is normal. No displaced fracturesidentified. Hardware projecting over thoracic spine. > Dictated by Otis Bocanegra MD (manager residential). > Dictated by Police Stenographer I, Blake Plasencia MD have personally reviewed and interpreted this examination/study. > Interpreting Provider: Blake Plasencia MD on 10/10/2024 1:17 AM Anjali Avelar RAD[employer] EQUIPMENT INSTALLER-[facility] MEMBER DIAGNOSTIC IMAGING O RDERABLES Final Result * (ABNORMAL) BLOOD GASES ABBEY + COOX PANEL (10/09/2024 4:39 PM CDT) Only the most recent of2 resultswithin the time period is included. pH Venous 7.41 7.32 - 7.42 pH 10/09/2024 5:04 PM [facility] pO2 Venous 34(L) 35 - 40 mmHg 10/09/2024 5:04 PM [facility] pCO2 Venous 44 40 - 50 mmHg 10/09/2024 5:04 PM [facility] HCO3 Venous 27.9 20 - 30 mmol/L 10/09/2024 5:04 PM [facility] Base Excess Venous 2.9(H) -2.0 - 2.0 mmol/L 10/09/2024 5:04 PM [facility] Oxyhemoglobin Venous 56.8 % 09/18 5:04 PM [facility] Comment:A^Absorbance Error Deoxyhemoglobin (HHB) Venous % 42.6 % 10/09/2024 5:04 PM [facility] Comment:A^Absorbance Error Methemoglobin <0.8 0.0 - 2.0 % 10/09/2024 5:04 PM [facility] Comment:A^Absorbance Error Carboxyhemoglobin 0.6 0.0 - 2.0 % 2024 5:04 PM [facility] Comment:A^Absorbance Error O2 Content Venous 7.7 Interpret within clinical context ml/dL 10/09/2024 5:04 PM [facility] Hemoglobin by COOX 9.6(L) 12.0 - 17.6 g/dL 10/09/2024 5:04 PM [facility] Comment:A^Absorbance Error O2 Saturation Venous 57(L) >=70 % 09/18 5:04 PM [facility] Comment:A^Absorbance Error FI O2 Mixed Venous 21.0 % 2024 5:04 PM CDT [facility] Blood BLOOD SPECIMEN / Unknown Venipuncture / Unknown 10/09/2024 4:39 PM CDT 10/09/2024 4:56 PM CDT Narrative [facility] - 10/09/2024 5:04 PM CDT Carboxyhemoglobin Normal Concentration: Non-smokers: 0-2%; Smokers: 0-9%; Toxic: >20% Anjali Avelar RAD[employer] EQUIPMENT INSTALLER-[facility] LAB - BLOOD GASES OR DERABLES Final Result [address] [address], [place] [phone] * PHOSPHORUS BLOOD (10/09/2024 4:39 PM CDT) Only the most recent of8 resultswithin the time period is included. Phosphorus 4.9 2.8 - 5.1 mg/dL 10/09/2024 5:29 PM CDT [facility] Blood BLOOD SPECIMEN / Unknown Venipuncture / Unknown 10/09/2024 4:39 PM CDT 10/09/2024 4:58 PM CDT Anjali Avelar RADIO EQUIPMENT INSTALLER[facility] LAB - CHEMISTRY ORDE RABLES Final Result [address] [address], [place] [phone] * (ABNORMAL) GLUCOSE - POINT OF CARE (10/09/2024 4:26 PM CDT) Only the most recent of55 resultswithin the time period is included. Glucose WB/POC 115(H) 70 - 99 mg/dL 10/09/2024 4:30 PM CDT [facility] Specimen Type Arterial/C apillary 10/09/2024 4:30 PM CDT [facility] Blood BLOOD SPECIMEN / Unknown 10/09/2024 4:26 PM CDT 10/09/2024 4:30 PM CDT us Provider Unknown LAB - POINT OF CARE ORDERABLES Final Result [facility] [address] [place] [address], [facility] [phone] * (ABNORMAL) URINALYSIS REFLEX MICROSCOPIC REFLEX CULTURE (10/07/2024 6:16 PM CDT) Color UA Yellow Yellow, Straw 10/07/2024 6:39 PM T [facility] Clarity UA Ex. Turbid(A) Clear 10/07/2024 6:39 PM T [facility] Glucose UA Normal Normal 10/07/2024 6:39 PM [facility] Bilirubin UA Negative Negative 10/07/2024 6:39 PM T [facility] Ketone UA Negative Negative 10/07/2024 6:39 PM T [facility] Specific [place] UA 1.015 1.005 - 1.030 10/07/2024 6:39 PM [facility] Blood UA 3+(A) Negative 10/07/2024 6:39 PM [facility] pH UA 6.0 5.0 - 8.0 10/07/2024 6:39 PM [facility] Protein UA 2+(A) Negative 10/07/2024 6:39 PM T [facility] Urobilinogen UA Normal Normal mg/dL 10/07/2024 6:39 PM [facility] Nitrite UA Negative Negative 10/07/2024 6:39 PM [facility] Leukocyte Esterase UA 500 MOLLY/uL(A) Negative 10/07/2024 6:39 PM [facility] RBC UA 51-100(A) 0 - 5 # /hpf 10/07/2024 6:39 PM [facility] WBC UA >100(A) 0 - 5 # /hpf 10/07/2024 6:39 PM [facility] Bacteria UA 2+(A) None Seen 10/07/2024 6:39 PM [facility] Squamous Epithelial Cells None Seen 0 - 5 /hpf 10/07/2024 6:39 PM CDT [facility] Transitional Epithelial Cell UA 0-2(A) None Seen /HPF 10/07/2024 6:39 PM CDT [facility] Budding Yeast Moderate(A) None seen /hpf 10/07/2024 6:39 PM CDT [facility] Reflex Status Culture to follow 10/07/2024 6:39 PM CDT [facility] Urine URINE SPECIMEN OBTAINED VIA [employer]WELL[employer] URINARY CATHETER / Unknown Collection / Unknown 10/07/2024 6:16 PM CDT 10/07/2024 6:19 PM CDT Narrative [facility] - 10/07/2024 6:39 PM CDT Richard Sylvester MD LAB - URINALYSIS ORDERABLES Kenna haider Result [facility] [address] [place] [address], [facility] [phone] * (ABNORMAL) CULTURE URINE (10/07/2024 6:16 PM CDT) Pathologist [facility] Culture Urine 50,000-100,000 CFU/mL Klebsiella pneumoniae(A) MUSHTAQ 10/09/2024 5:54 AM CDT [facility] MICROBIOLOGY Urine URINE SPECIMEN OBTAINED VIA [employer]WELL[employer] URINARY CATHETER / Unknown Collection / Unknown 10/07/2024 6:16 PM CDT 10/07/2024 6:19 PM CDT Health system MICROBIOLOGY - 10/09/2024 5:54 AM CDT Organism Antibiotic Method Susceptibility Klebsiella pneumoniae Amikacin MUSHTAQ <=2 ug/mL: Susceptible Klebsiella pneumoniae Ampicillin-sulbactam MUSHTAQ 4 ug/mL: Susceptible Klebsiella pneumoniae Cefazolin MUSHTAQ <=4 ug/mL: See Comment* Klebsiella pneumoniae Cefazolin-Urine (uncomplicated infections ONLY) MUSHTAQ <=4 ug/mL: Susceptible Klebsiella pneumoniae Cefepime MUSHTAQ <=1 ug/mL: Susceptible Klebsiella pneumoniae Ceftriaxone MUSHTAQ <=1 ug/mL: Susceptible Klebsiella pneumoniae Ciprofloxacin MUSHTAQ <=0.25 ug/mL: Susceptible Klebsiella pneumoniae Gentamicin MUSHTAQ <=1 ug/mL: Susceptible Klebsiella pneumoniae Meropenem MUSHTAQ <=0.25 ug/mL: Susceptible Klebsiella pneumoniae Piperacillin-tazobactam MUSHTAQ <=4 ug/mL: Susceptible Klebsiella pneumoniae Tobramycin MUSHTAQ <=1 ug/mL: Susceptible Klebsiella pneumoniae Trimethoprim-sulfa methoxa zole MUSHTAQ <=20 ug/mL: Susceptible Comment: *Cefazolin MUSHTAQ of </=4 cannot distinguish between susceptible or 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 for systemic breakpoints. If further defined interpretation is needed, call Microbiology and a disk diffusion test will be performed. Urine breakpoints for cefazolin should only be used when treating uncomplicated UTIs including men and women without urologic abnormality, kidney stones, stents, nephrostomy tubes, signs/symptoms of systemic illness, or pelvic/perineal pain in men. Cefazolin results can be used to predict susceptibility to oral cephalosporins - cephalexin, cefprozil, cefaclor, cefuroxime, cefdinir, and cefpodoxime. For complicated UTIs, use alternative cefazolin susceptibility result above. Richard Sylvester MD LAB - MICROBIOLOGY ORDERABLES nal Result [facility] [address] [place] [address], [facility] [phone] * VAS Arterial Multilevel Le (10/05/2024 12:24 PM CDT) Anatomical Region Laterality Modality Intravascular Ul trasound 10/05/2024 11:3 4 AM CDT Narrative Procedure Note Elroy Holcomb MD - 10/05/2024 Guy Messina MD VASCULAR LAB ORDERABLES Edit ed Result - Final * (ABNORMAL) HEMOGLOBIN A1C (09/25/2024 5:06 AM CDT) Hemoglobin A1c 5.8(H) <=5.6 % 09/25/2024 8:19 AM CDT [facility] Estimated Average Glucose 120 mg/dL 09/25/2024 8:19 AM CDT [facility] Comment: HbA1c Interpretation: Normal : < 5.7% Pre-diabetes: 5.7-6.4% Diabetes: Equal to or greater than 6.5% Test results diagnostic of diabetes should be repeated for confirmation. Treatment target values recommended by ADA and other clinical organizations should be used to evaluate metabolic control in patients. Reference: [place] [employer] Association, Standards of Care in Diabetes [...] LAB - CHEMISTRY ORDERABLES F inal Result [facility] [address] [place] [address], [facility] [phone] * (ABNORMAL) RENAL FUNCTION PANEL (09/24/2024 7:53 PM CDT) Only the most recent of3 resultswithin the time period is included. BUN 42(H) 7 - 26 mg/dL 09/24/2024 8:47 PM [facility] Creatinine 12.22(H) 0.71 - 1.16 mg/dL 09/24/2024 8:47 PM [facility] Sodium 136 136 - 145 mmol/L 09/24/2024 8:47 PM [facility] Potassium 3.9 3.5 - 4.5 mmol/L 09/24/2024 8:47 PM [facility] Chloride 97(L) 98 - 107 mmol/L 09/24/2024 8:47 PM [facility] CO2 24 22 - 29 mmol/L 09/24/2024 8:47 PM [facility] Glucose 93 70 - 99 mg/dL 09/24/2024 8:47 PM [facility] Albumin 1.8(L) 3.4 - 5.0 g/dL 09/24/2024 8:47 PM [facility] Calcium 8.4 8.4 - 10.2 mg/dL 09/24/2024 8:47 PM CDT [facility] Phosphorus 7.0(H) 2.8 - 5.1 mg/dL 09/24/2024 8:47 PM T [facility] Anion Gap 15 6 - 16 09/24/2024 8:47 PM T [facility] BUN/Creatinine Ratio 3(L) 7 - 23 09/24/2024 8:47 PM T [facility] Osmolality Calculated 292 275 - 295 mOsm/kg 09/24/2024 8:47 PM T [facility] eGFR by CKD-EPI 4(L) >=90 mL/min/1.7 3 m2 09/24/2024 8:47 PM [facility] Comment:Estimated Glomerular Filtration Rate (eGFR) calculated using the CKD-EPI Creatinine Equation (2020), per the National Kidney Foundation and [place] Society of Nephrology recommendations. Blood BLOOD SPECIMEN / Unknown Lab Venipuncture / Unknown 09/24/2024 7:53 PM CDT 09/24/2024 8:15 PM CDT us Guy Messina MD LAB - CHEMISTRY ORDERABLES F inal Result [address] [address], [facility] [phone] * TSH REFLEX FREE T4 (09/24/2024 12:02 PM CDT) TSH 1.567 0.350 - 4.940 uIU/mL 09/24/2024 12:57 PM CDT [facility] Blood BLOOD SPECIMEN / Unknown 09/24/2024 12:02 PM CDT 09/24/2024 12:18 PM CDT us Alexis Rodrigez III, MD LAB - CHEMISTRY ORDERAB LES Final Result [address] [address], [place] [phone] * (ABNORMAL) VITAMIN B1 (09/24/2024 12:02 PM CDT) Vitamin B1 Whole Blood 205(H) 70 - 180 nmol/L 09/27/2024 7:16 PM CDT [facility]) Comment: INTERPRETIVE INFORMATION: Vitamin B1, Whole Blood This assay measures the concentration of thiamine diphosphate (TDP), the primary active form of vitamin B1. Approximately 90 percent of vitamin B1 present in whole blood is TDP. Thiamine and thiamine monophosphate, which comprise the remaining 10 percent, are not measured. This test was developed and its performance characteristics determined by [facility]. It has not been cleared or approved by the US Food and Drug Administration. This test was performed in a CLIA certified laboratory and is intended for clinical purposes. Performed By: [place] [address] Art Instructor: Mk Egan MD, PhD CLIA Number: [id number] Blood BLOOD SPECIMEN / Unknown 09/24/2024 12:02 PM CDT 09/24/2024 12:11 PM CDT Alexis Rodrigez III, MD LAB - CHEMISTRY ORDERAB LES Final Result [facility]) [address] [place] [id number] [place] [address] * (ABNORMAL) VITAMIN B12 (09/24/2024 12:02 PM CDT) [facility] Vitamin B12 1,151(H) 213 - 816 pg/mL 09/24/2024 12:57 PM CDT [facility] Blood BLOOD SPECIMEN / Unknown 09/24/2024 12:02 PM CDT 09/24/2024 12:18 PM CDT Alexis Rodrigez III, MD LAB - CHEMISTRY ORDERAB LES Final Result [address] [address], [facility] [phone] * (ABNORMAL) TROPONIN-I HIGH SENSITIVE (09/24/2024 5:08 AM CDT) [facility] Troponin I High Sensitive 83(H) <=35 ng/L 09/24/2024 6:10 AM CDT [facility] Blood BLOOD SPECIMEN / Unknown Lab Venipuncture / Unknown 09/24/2024 5:08 AM CDT 09/24/2024 5:28 AM CDT us Jennifer Winn MD LAB - CHEMISTRY ORDERABLES F inal Result [place] [id number] [place] [address], [facility] [phone] * CT Lumbar Spine Wo Contrast (09/23/2024 [...] pelvis. Report dictated by Branden Jha MD (manager residential) 09/23/2024 5:45 PM. > Dictated by Police Stenographer I, Jana Clark MD have personally reviewed and interpreted this examination/study. > Interpreting Provider: Jana Clark MD on 09/23/2024 6:29 PM Narrative 09/23/2024 6:29 PM CDT PROCEDURE: CT HEAD WO CONTRAST, CT LUMBAR SPINE WO CONTRAST, CT THORACIC SPINE WO CONTRAST, CT CERVICAL SPINE WO CONTRAST, DATE/TIME OF EXAM: 09/23/2024 5:32 PM, LOCATION [facility] INDICATION: W19.XXXA: Fall, initial encounter R41.82: Altered mental status, unspecified altered mental status type ADDITIONAL CLINICAL INFORMATION: Ordering Provider Reason For Exam: r/o bleed, fx (accession [id number]), r/o fx (accession [id number]), r/o fx (accession [id number]), r/o fx (accession [id number]) Technologist Note: None. Additional: 69 year old [...] DATE/TIME OF EXAM: 09/23/2024 5:32 PM, LOCATION [facility] INDICATION: W19.XXXA: Fall, initial encounter R41.82: Altered mental status, unspecified altered mental status type ADDITIONAL CLINICAL INFORMATION: Ordering Provider Reason For Exam: r/o bleed, fx (accession [id number]), r/o fx (accession [id number]), r/o fx (accession [id number]), r/o fx (accession [id number]) Technologist Note: None. Additional: 69 year old [...] pelvis. Report dictated by Branden Jha MD (manager residential) 09/23/2024 5:45 PM. > Dictated by Police Stenographer I, Jana Clark MD have personally reviewed and interpretedthis examination/study. > Interpreting Provider: Jana Clark MD on 09/23/2024 6:29 PM us Moon Lewis PA-C CT ORDERABLES Final Result [...] pelvis. Report dictated by Branden Jha MD (manager residential) 09/23/2024 5:45 PM. > Dictated by Police Stenographer I, Jana Clark MD have personally reviewed and interpreted this examination/study. > Interpreting Provider: Jana Clark MD on 09/23/2024 6:29 PM Narrative 09/23/2024 6:29 PM CDT PROCEDURE: CT HEAD WO CONTRAST, CT LUMBAR SPINE WO CONTRAST, CT THORACIC SPINE WO CONTRAST, CT CERVICAL SPINE WO CONTRAST, DATE/TIME OF EXAM: 09/23/2024 5:32 PM, LOCATION [facility] INDICATION: W19.XXXA: Fall, initial encounter R41.82: Altered mental status, unspecified altered mental status type ADDITIONAL CLINICAL INFORMATION: Ordering Provider Reason For Exam: r/o bleed, fx (accession [id number]), r/o fx (accession [id number]), r/o fx (accession [id number]), r/o fx (accession [id number]) Technologist Note: None. Additional: 69 year old [...] DATE/TIME OF EXAM: 09/23/2024 5:32 PM, LOCATION [facility] INDICATION: W19.XXXA: Fall, initial encounter R41.82: Altered mental status, unspecified altered mental status type ADDITIONAL CLINICAL INFORMATION: Ordering Provider Reason For Exam: r/o bleed, fx (accession [id number]), r/o fx (accession [id number]), r/o fx (accession [id number]), r/o fx (accession [id number]) Technologist Note: None. Additional: 69 year old male PMH as noted below who presents with fall. The patient is AO x 3 but slow to speech. Present is his today. Patient's states that he has been acting like this since thebegin of August. States he had a history [...] pelvis. Report dictated by Branden Jha MD (manager residential) 09/23/2024 5:45 PM. > Dictated by Police Stenographer Jana Leigh MD have personally reviewed and interpretedthis examination/study. [...] pelvis. Report dictated by Branden Jha MD (manager residential) 09/23/2024 5:45 PM. > Dictated by Police Stenographer Jana Leigh MD have personally reviewed and interpreted this examination/study. > Interpreting Provider: Jana Clark MD on 09/23/2024 6:29 PM Narrative 09/23/2024 6:29 PM CDT PROCEDURE: CT HEAD WO CONTRAST, CT LUMBAR SPINE WO CONTRAST, CT THORACIC SPINE WO CONTRAST, CT CERVICAL SPINE WO CONTRAST, DATE/TIME OF EXAM: 09/23/2024 5:32 PM, LOCATION [facility] INDICATION: W19.XXXA: Fall, initial encounter R41.82: Altered mental status, unspecified altered mental status type ADDITIONAL CLINICAL INFORMATION: Ordering Provider Reason For Exam: r/o bleed, fx (accession [id number]), r/o fx (accession [id number]), r/o fx (accession [id number]), r/o fx (accession [id number]) Technologist Note: None. Additional: 69 year old [...] DATE/TIME OF EXAM: 09/23/2024 5:32 PM, LOCATION [facility] INDICATION: W19.XXXA: Fall, initial encounter R41.82: Altered mental status, unspecified altered mental status type ADDITIONAL CLINICAL INFORMATION: Ordering Provider Reason For Exam: r/o bleed, fx (accession [id number]), r/o fx (accession [id number]), r/o fx (accession [id number]), r/o fx (accession [id number]) Technologist Note: None. Additional: 69 year old [...] pelvis. Report dictated by Branden Jha MD (manager residential) 09/23/2024 5:45 PM. > Dictated by Police Stenographer I, Jana Clark MD have personally reviewed [...] erosion. Report dictated by Branden Jha MD, (manager residential). > Dictated by Police Stenographer I, Nicole Bernabe MD have personally reviewed and interpreted this examination/study. > Interpreting Provider: Nicole Bernabe MD on 09/24/2024 9:17 AM Narrative 09/24/2024 9:17 AM CDT PROCEDURE: XR FOOT LEFT 3VW OR MORE, DATE/TIME OF EXAM: 09/23/2024 5:34 PM, LOCATION [facility] INDICATION: W19.XXXA: Fall, initial encounter ADDITIONAL CLINICAL [...] MORE, DATE/TIME OF EXAM: 09/23/2024 5:34PM, LOCATION [facility] INDICATION: W19.XXXA: Fall, initial encounter ADDITIONAL CLINICAL [...] erosion. Report dictated by Branden Jha MD, (manager residential). > Dictated by Police Stenographer I, Nicole Bernabe MD have personally reviewed and interpreted this examination/study. > Interpreting Provider: Nicole Bernabe MD on 09/24/2024 9:17 AM Moon Lewis PA-C DIAGNOSTIC IMAGING ORDERABLES F inal Result * (ABNORMAL) C-REACTIVE PROTEIN (09/23/2024 4:52 PM CDT) Only the most recent of2 resultswithin the time period is included. C-Reactive Protein 1.6(H) <=0.5 mg/dL 09/23/2024 5:42 PM CDT [facility] Blood BLOOD SPECIMEN / Unknown Venipuncture / Unknown 09/23/2024 4:52 PM CDT 09/23/2024 4:56 PM CDT Moon Lewis PA-C LAB - CHEMISTRY ORDERABLES Kenna l Result Performing Organization Address City/[facility]/ZIP Co de Phone Number [address] [address], [facility] [phone] * (ABNORMAL) ERYTHROCYTE SEDIMENTATION RATE (09/23/2024 4:52 PM CDT) Only the most recent of2 resultswithin the time period is included. Erythrocyte Sedimentation Rate Westergren 116(H) 0 - 20 MM/HR 09/23/2024 5:21 PM CDT [facility] Blood BLOOD SPECIMEN / Unknown Venipuncture / Unknown 09/23/2024 4:52 PM CDT 09/23/2024 5:05 PM CDT Moon Lewis PA-C LAB - HEMATOLOGY ORDERABLES Fin al Result [address] [address], [facility] [phone] * (ABNORMAL) DIFFERENTIAL MANUAL (09/23/2024 4:52 PM CDT) Only the most recent of3 resultswithin the time period is included. Neutrophil % 78(H) 41 - 74 % 09/23/2024 5:33 PM [facility] Lymphocyte % 10(L) 17 - 47 % 09/23/2024 5:33 PM [facility] Monocyte % 10 3 - 11 % 09/23/2024 5:33 PM [facility] Eosinophil % 1 0 - 7 % 09/23/2024 5:33 PM [facility] Metamyelocyte % 1(H) 0% % 5:33 PM [facility] Neutrophil Absolute 8.66(H) 1.60 - 7.50 x10E9/L 09/23/2024 5:33 PM T [facility] Lymphocyte Absolute 1.11 1.00 - 4.40 x10E9/L 09/23/2024 5:33 PM [facility] Monocyte Absolute 1.11(H) 0.15 - 1.00 x10E9/L 09/23/2024 5:33 PM T [facility] Eosinophil Absolute 0.11 0.00 - 0.60 x10E9/L 09/23/2024 5:33 PM [facility] RBC Morphology REVIEWED 09/23/2024 5:33 PM [facility] Microcytosis MODERATE(A) (none) 09/23/2024 5:33 PM [facility] Blood BLOOD SPECIMEN / Unknown Venipuncture / Unknown 09/23/2024 4:52 PM CDT 09/23/2024 5:05 PM CDT us Moon Lewis PA-C LAB - HEMATOLOGY ORDERABLES Fin al Result [address] [address], [facility] [phone] * (ABNORMAL) CBC W/O DIFFERENTIAL (09/16/2024 1:01 AM CDT) Only the most recent of10 resultswithin the time period is included. Pathologist [facility] WBC 9.3 4.0 - 10.7 x10E9/L 09/16/2024 1:43 AM [facility] RBC Count 3.37(L) 4.30 - 5.80 x10E12/L 09/16/2024 1:43 AM [facility] Hemoglobin 9.5(L) 13.3 - 17.5 g/dL 09/16/2024 1:43 AM [facility] Hematocrit 28.3(L) 38.7 - 51.1 % 09/16/2024 1:43 AM [facility] MCV 84.0 80.0 - 98.0 fL 09/16/2024 1:43 AM [facility] MCH 28.2 26.7 - 33.6 pg 09/16/2024 1:43 AM [facility] MCHC 33.6 31.7 - 36.3 g/dL 09/16/2024 1:43 AM [facility] RDW-CV 15.7(H) 11.3 - 14.8 % 09/16/2024 1:43 AM [facility] Platelet Count 205 150 - 420 x10E9/L 09/16/2024 1:43 AM [facility] MPV 10.3 7.8 - 11.4 fL 09/16/2024 1:43 AM [facility] Blood BLOOD SPECIMEN / Unknown Lab Venipuncture / Unknown 09/16/2024 1:01 AM CDT 09/16/2024 1:40 AM CDT us Alexis Rodrigez III, MD LAB - HEMATOLOGY ORDERA BLES Final Result [facility] [address] [place] [address], [facility] [phone] * VANCOMYCIN LEVEL RANDOM (09/15/2024 4:10 PM CDT) Only the most recent of3 resultswithin the time period is included. Pathologist [facility] Vancomycin Random 31.2 Therapeutic Ranges not established for random specimens ug/mL 09/15/2024 6:00 PM [facility] Blood BLOOD SPECIMEN / Unknown Lab Venipuncture / Unknown 09/15/2024 4:10 PM CDT 09/15/2024 4:51 PM CDT Narrative [facility] - 09/15/2024 6:00 PM CDT See institution protocol. us Aureliano Pierce MD LAB - CHEMISTRY ORDERAB LES Final Result Performing Organization Address City/[facility]/ZIP Co de Phone Number [address] [address], [place] [phone] * LACTIC ACID BLOOD (09/14/2024 3:32 PM CDT) Only the most recent of4 resultswithin the time period is included. Pathologist [facility] Lactic Acid-Stat 2.0 <=2.0 mmol/L 09/14/2024 4:17 PM CDT [facility] Blood BLOOD SPECIMEN / Unknown Lab Venipuncture / Unknown 09/14/2024 3:32 PM CDT 09/14/2024 3:51 PM CDT us Alexis Rodrigez III, MD LAB - CHEMISTRY ORDERAB LES Final Result Performing Organization Address [facility]/ZIP Co de Phone Number [address] [address], [place] [phone] * (ABNORMAL) HGB HCT PANEL (09/14/2024 1:24 PM CDT) Only the most recent of2 resultswithin the time period is included. Pathologist [facility] Hemoglobin 8.7(L) 13.3 - 17.5 g/dL 09/14/2024 1:41 PM CDT [facility] Hematocrit 25.6(L) 38.7 - 51.1 % 09/14/2024 1:41 PM CDT [facility] Blood BLOOD SPECIMEN / Unknown Venipuncture / Unknown 09/14/2024 1:24 PM CDT 09/14/2024 1:30 PM CDT us Alexis Rodrigez III, MD LAB - HEMATOLOGY ORDERA BLES Final Result [facility] [address] [place] [address], [facility] [phone] * PATHOLOGY TISSUE (09/14/2024 11:45 AM CDT) Case Report Surgical Pathology Report Case: [id number] Authorizing Provider: Elroy Holcomb MD Collected: 09/14/2024 11:45 AM Ordering Location: [facility] Received: 09/14/2024 12:47 PM Pathologist: Charmaine Myrick MD Specimen: Toe, Left, Left Great Toe 09/16/2024 11:40 AM CDT [facility] Final Diagnosis Toe, left great, amputation (A): - Skin ulceration and necrosis - Acute osteomyelitis - Bone margin negative for acute inflammation - Skin and soft tissue margin appears viable 09/16/2024 11:40 AM CDT [facility] at 1140 CDT Microscopic Description and Comment Microscopic examination substantiates the diagnosis. 09/16/2024 11:40 AM CDT [facility] Clinical History The patient is a 69-year-old man with first toe dry gangrene and history of PAD. 09/16/2024 11:40 AM CDT [facility] Gross Description The requisition and [...] The proximal portion of bone is predominantly oh-pink with scattered hemorrhage. There are no additional gross lesions. Word Processing Operator sections are submitted as follows: A1-skin and soft tissue to resection margin, medial and dorsal surfaces A2-bony resection margin, decalcified A3-partial proximal cross-section with surrounding mummification, decalcified IKD 09/16/2024 11:40 AM CDT [facility] Pathologist Location at [facility] 09/16/2024 11:40 AM CDT [facility] Disclaimer The performance characteristics of all immunohistochemical and indirect immunofluorescence stains (if any) cited in this report were determined by the Histopathology Laboratory of [facility]. Some of these tests were developed by [...] attending (teaching) pathologist. 09/16/2024 11:40 AM CDT [facility] Embedded Images 09/16/2024 11:40 AM T [facility] Amputation, Traumatic (Gross Only) (Toe, Left) 09/14/2024 11:45 AM CDT 09/14/2024 12:47 PM CDT Comment:Pre-op diagnosis: Toe gangrene (HCC) [I96] us Elroy Holcomb MD LAB - PATHOLOGY/CYTOLOGY O RDERABLES Final Result Performing Organization Address City/State/[facility] Co de Phone Number [facility] [address] [place] [address], [facility] [phone] * Peripheral Nerve Block (09/14/2024 10:38 AM CDT) Narrative Jose Nicole MD - 09/14/2024 10:38 AM CDT Jose iNcole MD 09/14/2024 10:42 AM Peripheral Nerve Block [...] GENERAL ANESTHESIA ORDERAB LES Final Result * CULTURE FUNGUS OTHER+FUNGUS SMEAR (09/13/2024 8:08 PM CDT) Culture No fungus isolated MUSHTAQ 10/11/2024 8:05 AM CDT [facility] Fungus Stain No yeast or hyphae seen 10/11/2024 8:05 AM CDT [facility] Microbiology PERITONEAL DIALYSATE SPECIMEN / Unknown Collection / Unknown 09/13/2024 8:08 PM CDT 09/13/2024 8:10 PM CDT us Alexis Rodrigez III, MD LAB - MICROBIOLOGY PK EZNG Final Result [facility] [address] [place], [place] [address], [facility] [phone] * DIFFERENTIAL MANUAL FLUID (09/13/2024 8:08 PM CDT) Fluid Source Peritoneal 09/13/2024 9:03 PM CDT [facility] Body Fluid Total Cell Count 100 x10E6/L 09/13/2024 9:03 PM CDT [facility] Neutrophils Fluid Percent 11 % 09/13/2024 9:03 PM CDT [facility] Lymphocytes Fluid Percent 6 % 09/13/2024 9:03 PM CDT [facility] Macrophages Fluid Percent 79 % 09/13/2024 9:03 PM CDT [facility] Mesothelial Cells Fluid Percent 4 % 09/13/2024 9:03 PM CDT [facility] Fluid PERITONEAL FLUID / Unknown Collection / Unknown 09/13/2024 8:08 PM CDT 09/13/2024 8:10 PM CDT [facility] - 09/13/2024 9:03 PM CDT No reference ranges established for body fluid differential cell counts. The test results must be integrated into the clinical context for interpretation. us Alexis Rodrigez III, MD LAB - BODY FLUID ORDERA BLES Final Result [facility] [address] [place] [address], [place] [phone] * CULTURE FLUID+GRAM STAIN (09/13/2024 8:08 PM CDT) Culture No growth MUSHTAQ 09/17/2024 12:38 AM CDT [facility] Gram Stain Light Polymorphonuclear cells 09/17/2024 12:38 AM CDT [facility] Gram Stain No organisms seen 025 12:38 AM CDT [facility] Other PERITONEAL DIALYSATE SPECIMEN / Unknown Collection / Unknown 09/13/2024 8:08 PM CDT 09/13/2024 8:10 PM CDT us Alexis Rodrigez III, MD LAB - MICROBIOLOGY ORDE RABLES Final Result [facility] [address] [place] [address], [facility] [phone] * CULTURE ANAEROBE (09/13/2024 8:08 PM CDT) Culture No anaerobic organisms isolated MUSHTAQ 09/19/2024 8:26 AM CDT [facility] Microbiology PERITONEAL DIALYSATE SPECIMEN / Unknown Collection / Unknown 09/13/2024 8:08 PM CDT 09/13/2024 8:11 PM CDT Alexis Rodrigez III, MD LAB - MICROBIOLOGY ORDE RABLES Final Result [facility] [address] [place] [address], [facility] [phone] * CELL COUNT W DIFFERENTIAL FLUID (09/13/2024 8:08 PM CDT) Fluid Source Peritoneal 09/13/2024 9:03 PM CDT [facility] Fluid Appearance CLEAR 09/13/2024 9:03 PM CDT [facility] Fluid Color YELLOW 09/13/2024 9:03 PM CDT [facility] Total Nucleated Cells Fluid 279 Reference Range Not Established x10E6/L 09/13/2024 9:03 PM CDT [facility] RBC Count Fluid <2,000 Reference Range Not Established x10E6/L 09/13/2024 9:03 PM CDT [facility] Fluid PERITONEAL FLUID / Unknown Collection / Unknown 09/13/2024 8:08 PM CDT 09/13/2024 8:10 PM CDT Narrative [facility] - 09/13/2024 9:03 PM CDT No reference ranges established for body fluid cell counts. Any reference ranges provided are derived from published literature. The test results must be integrated into the clinical context for interpretation. us Alexis Rodrigez III, MD LAB - BODY FLUID ORDERA BLES Final Result Performing Organization Address City/[facility]/ZIP Co de Phone Number [facility] [address] [place] [address], [place] [phone] * VAS Bilateral Venous Duplex Le (09/13/2024 4:34 PM CDT) Anatomical Region Laterality Modality Lower Extremity Ultrasound 09/13/2024 4:18 PM CDT Narrative Procedure Note Lalit Castanon MD - 09/13/2024 us Alexis Rodrigez III, MD VASCULAR LAB ORDERABLES Edited Result - Final * SARS-COV-2 (COVID-19) RAPID (09/13/2024 6:02 AM CDT) COVID-19 PCR Not detected Not detected 09/14/19 6:36 AM CDT [facility] Microbiology SPECIMEN FROM NASOPHARYNGEAL STRUCTURE / Unknown Collection / Unknown 09/13/2024 6:02 AM CDT 09/13/2024 6:04 AM CDT Narrative [facility] - 09/13/2024 6:36 AM CDT The Cepheid Xpert Xpress SARS-COV-2 has been authorized by [...] LAB - MICROBIOLOGY ORDERABLE S Final Result [address] [address] [phone] * TRANSFUSE RED BLOOD CELL LEUKOREDUCED UNIT(S) (09/13/2024 4:41 AM CDT) Yuriy Lopez MD NURSING - BLOOD PROD TRANSFU ERASMO Final Result * CT Angio Aorta for Dissection (09/13/2024 [...] > Dictated by Sera Chowdhury Dr, MD (manager residential). ITerry MD have personally reviewed and interpreted this examination/study. > Interpreting Provider: Terry Ramos MD on 09/13/2024 9:42 AM Narrative 09/13/2024 9:42 AM CDT PROCEDURE: CT ANGIO AORTA FOR DISSECTION, DATE/TIME OF EXAM: 09/13/2024 12:28 AM, LOCATION [facility] INDICATION: R10.9: Abdominal pain, unspecified abdominal location [...] DATE/TIME OF EXAM: 09/13/2024 12:28 AM, LOCATION [facility] INDICATION: R10.9: Abdominal pain, unspecified abdominal location [...] > Dictated by Sera Chowdhury Dr, MD (manager residential). I, E. Constantino Ramos MD have personally reviewed and interpreted this examination/study. > Interpreting Provider: Terry Ramos MD on 09/13/2024 9:42 AM Yuriy Lopez MD CT ORDERABLES Final Result * PREPARE (CROSSMATCH) RBC UNIT(S), 1 Units (09/12/2024 11:30 PM CDT) Unit Description AS1 LR PRBC [facility] Unit ABO O [facility] Unit Rh NEG [facility] Product Number R43 [facility] Unit Donor # [id number] [facility] Unit Status transfused [facility] Product Code [id number] [facility] Blood Type Barcode 9500 [facility] Expiration Date S BLOOD BANK LAB Blood Bank BLOOD SPECIMEN / Unknown 09/12/2024 11:30 PM CDT 09/12/2024 11:37 PM CDT Yuriy Lopez MD LAB - BLOOD BANK ORDERABLES Final Result Performing Organization Address [facility]/ZIP Co de Phone Number [facility] [address] [place] [address], [place] [phone] * TYPE + SCREEN PANEL (09/12/2024 11:30 PM CDT) Antibody Screen NEG 12:16 AM CDT [facility] ABO Rh O NEG 09/13/2024 12:16 AM CDT [facility] Blood Bank BLOOD SPECIMEN / Unknown Venipuncture / Unknown 09/12/2024 11:30 PM CDT 09/12/2024 11:37 PM CDT Yuriy Lopez MD LAB - BLOOD BANK ORDERABLES Final Result Performing Organization Address [facility] Co de Phone Number [facility] [address] [place] [address], [place] [phone] * CULTURE BLOOD (09/12/2024 10:00 PM CDT) Only the most recent of4 resultswithin the time period is included. Culture No growth day 5 MUSHTAQ 09/18/2024 1:30 AM CDT [facility] MICROBIOLOGY Blood PERIPHERAL BLOOD / Unknown Venipuncture / Unknown 09/12/2024 10:00 PM CDT 09/12/2024 10:21 PM CDT Yuriy Lopez MD LAB - MICROBIOLOGY ORDERABLE S Final Result Performing Organization Address City/[facility]/ZIP Co de Phone Number [facility] MICRO[facility]Y [address] [place] [address], [place] [phone] * (ABNORMAL) BASIC METABOLIC PANEL (CALCIUM TOTAL) (09/08/2024 10:45 AM CDT) Only the most recent of6 resultswithin the time period is included. BUN 46(H) 7 - 26 mg/dL 09/08/2024 11:55 AM [facility] Creatinine 10.97(H) 0.71 - 1.16 mg/dL 09/08/2024 11:55 AM [facility] Sodium 142 136 - 145 mmol/L 09/08/2024 11:55 AM [facility] Potassium 4.4 3.5 - 4.5 mmol/L 09/08/2024 11:55 AM [facility] Chloride 104 98 - 107 mmol/L 09/08/2024 11:55 AM [facility] CO2 25 22 - 29 mmol/L 09/08/2024 11:55 AM [facility] Glucose 112(H) 70 - 99 mg/dL 09/08/2024 11:55 AM [facility] Calcium 8.9 8.4 - 10.2 mg/dL 09/08/2024 11:55 AM [facility] Anion Gap 13 6 - 16 09/08/2024 11:55 AM [facility] BUN/Creatinine Ratio 4(L) 7 - 23 09/08/2024 11:55 AM [facility] Osmolality Calculated 307(H) 275 - 295 mOsm/kg 09/08/2024 11:55 AM [facility] eGFR by CKD-EPI 5(L) >=90 mL/min/1.7 3 m2 09/08/2024 11:55 AM [facility] Comment:Estimated Glomerular Filtration Rate (eGFR) calculated using the CKD-EPI Creatinine Equation (2020), per the National Kidney Foundation and [place] Society of Nephrology recommendations. Blood BLOOD SPECIMEN / Unknown Lab Venipuncture / Unknown 09/08/2024 10:45 AM CDT 09/08/2024 11:26 AM [facility] us Mellissa Freitas PA-C LAB - CHEMISTRY ORDERABLES Final Result [facility] [address] [place] [address], [place] [phone] * VAS Bilateral Venous Mapping (09/07/2024 2:24 [...] 8 PM CDT Narrative Procedure Note Lalit Castanon MD - 09/07/2024 Sarah Mcgraw DO VASCULAR [...] thickening. Report dictated by Freddie Durham MD, (Police Stenographer). I, Junior Hurley MD have personally reviewed [...] thickening. Report dictated by Freddie Durham MD, (Police Stenographer). I, Junior Hurley MD have personally reviewed and interpreted this examination/study. > Interpreting Provider: Junior Hurley MD on 56:26 AM [address]armaine Khalil MD CT ORDERABLES Final Result * (ABNORMAL) POTASSIUM WHOLE BLD (09/01/2024 3:54 PM CDT) Potassium Whole Blood 3.1(L) 3.5 - 5.5 mmol/L 09/01/2024 4:05 PM CDT [facility] Blood WHOLE BLOOD SPECIMEN / Unknown Venipuncture / Unknown 09/01/2024 3:54 PM CDT 09/01/2024 3:57 PM CDT Jaqueline Crews RADIO EQUIPMENT INSTALLER-PETROLEUM GEOLOGY FACULTY MEMBER LAB - CHEMISTRY ORDERABL ES Final Result [facility] [address] [place] [address], [facility] [phone] * CCL STAGED PERC CORONARY INTERVENTION, CCL CORONARY IVUS, CCL CORONARY ATHERECTOMY, CCL TEMPORARY PACEMAKER INSERTION (09/01/2024 2:18 PM CDT) Anatomical Region Laterality Modality X-Ray [...] 6Fr 1.25Mm Diamondback catheter and using a [facility] Diamondback 360 Viperwire Adv wire. 2 passes [...] Recommend continuing [facility] Cardiology clinic f/u Jaqueline Sunyn Crews RADIO EQUIPMENT INSTALLER-PETROLEUM GEOLOGY FACULTY MEMBER CV CARDIAC CATH CUPID AL OCS Final Result * (ABNORMAL) IRON + TRANSFERRIN PANEL (08/19/2024 1:41 AM CDT) Iron 40(L) 50 - 175 ug/dL 08/19/2024 2:17 AM CDT [facility] Transferrin 116(L) 174 - 382 mg/dL 08/19/2024 2:17 AM CDT [facility] Transferrin Saturation % 28 16 - 50 % 08/19/2024 2:17 AM CDT [facility] TIBC Calculated 145(L) 240 - 450 ug/dL 08/19/2024 2:17 AM CDT [facility] Blood BLOOD SPECIMEN / Unknown Lab Venipuncture / Unknown 08/19/2024 1:41 AM CDT 08/19/2024 2:01 AM CDT Result [facility] Hannah Goodman MD LAB - CHEMISTRY ORDERABLES F inal Result Performing Organization Address [facility]/ZIP Co de Phone Number [address] [address], [place] [phone] * (ABNORMAL) FERRITIN (08/19/2024 1:41 AM CDT) Ferritin 560(H) 22 - 275 ng/mL 08/19/2024 2:35 AM CDT [facility] Blood BLOOD SPECIMEN / Unknown Lab Venipuncture / Unknown 08/19/2024 1:41 AM CDT 08/19/2024 2:01 AM CDT Hannah Goodman MD LAB - CHEMISTRY ORDERABLES F inal Result [address] [address], [facility] [phone] * VITAMIN D 25-HYDROXY (08/19/2024 1:23 AM CDT) Vitamin D, 25 Hydroxy 36.2 30.0 - 80.0 ng/mL 08/19/2024 2:24 AM CDT [facility] Comment: The recommendations [...] LAB - CHEMISTRY ORDERABLES F inal Result [address] [address], [facility] [phone] * CCL PERIPHERAL ANGIOGRAM (08/18/2024 2:33 PM CDT) Anatomical Region Laterality Modality X-Ray Angiograph y Narrative 08/19/2024 2:24 PM CDT Left leg angiogram showed left AT severe diffuse disease with multiple subtotal occlusion and left PT severe diffuse disease with DIGITAL COORDINATOR of distal PT without clear reconstitution. Successful [...] 0.018 CXI microcatheter with multiple wires(Command 18/command 14/Measurement Advisor 200) to get to great toe branch of dorsalis pedis using director adult [address]. - the AT-DP lesion was dilated with balloons mentioned in figure. - We turn our attention to PT. We crossed the PT DIGITAL COORDINATOR with 0.018 CXI microcatheter with multiple wires (command 18, command 14, Measurement Advisor 200) and able to go to lateral [...] using angiography. Left Posterior Tibial: Ost L CUPOLA CHARGER INSULATION to Dist L CUPOLA CHARGER INSULATION lesion is 100% stenosed. Stenosis was measured [...] 10% residual stenosis post intervention. Ost L CUPOLA CHARGER INSULATION to Dist L CUPOLA CHARGER INSULATION lesion: Angioplasty: Angioplasty independent of stent deployment [...] of Plavix. -recommend close follow up with pole framer and follow up with me in clinic with JOSIANE/TBI. Hannah Goodman MD CV INVASIVE VASCULAR AND IR CUPID PROC Final Result * ACT LR - POCT ([facility]) (08/18/2024 2:08 PM CDT) Only the most recent of4 resultswithin the time period is included. [facility] ACT LR 231 See result comments sec 08/19/2024 9:02 AM CDT [facility] Blood BLOOD SPECIMEN / Unknown 08/18/2024 2:08 PM CDT 08/19/2024 9:02 AM CDT Narrative [facility] - 08/19/2024 9:02 AM CDT ACT-LR Therapeutics ranges are: Cardiac porcelain enamel laborer = 200-300 seconds Sheath pull = ACT [...] MD LAB - COAGULATION ORDERABLES Final Result [address] [address], [facility] [phone] * MRI ABDOMEN WWO CONTRAST (08/04/2024 12:24 [...] cysts. Report dictated by Alan Cole MD (manager residential). ITerry MD have personally reviewed and interpreted [...] of the left kidney, not significantly changed, [id number] image 49, series 16 image 41. A [...] cysts. Report dictated by Alan Cole MD (manager residential). ITerry MD have personally reviewed and interpreted this examination/study. > Interpreting Provider: Terry Ramos MD on 08/04/2024 6:23 PM us Thomas Mendoza MD MR ORDERABLES Final Resu lt * HEPATITIS C ANTIBODY (06/16/2024 4:15 PM CDT) Hepatitis C Antibody Non-react sylvie Non-reac tive 06/16/2024 5:50 PM CDT [facility] Comment:Hepatitis C Antibody [...] CHEMISTRY ORDERABLES nal Result Performing Organization Address [facility] de Phone Number [address] [address], [facility] [phone] from Last 3 Months or Most Recently Relevant to Health Maintenance Insurance [facility] [place] [address] AETNA AETNA MEDICARE ADV [facility] [place] [address] * Guarantor: GRACE INTERIANO Account Type Relation to Patient Date of Phone Billing Address Personal/Family [id number] * Guarantor: GRACE INTERIANO Account Type Relation to Patient Date of Phone Billing Address Personal/Family [facility] [place] [address] Advance Directives * Full Code (Latest Code [...] 3:16 PM 08/19/2024 4:36 PM Care Teams Behavioral Psychologist Relationship Specialty Start Date End Date Jeff Strickland MD [address] [place] [address] PCP - General 03/05/18 [place] [address] [address] Orthopedic Surgery 03/28/17
--- OUTSIDE RECORDS SUMMARY | 2024-10-30 19:28 | XMS_ITS ---
Author Organization [facility] Address [address] [place] [address] Care Team Providers Care Frontend Engineer Name Role Phone Jeff Strickland MD Primary Care Provider Chan Nicholas MD Unavailable Alan Mccall MD Unavailable [phone] Pepito Haro MD PhD Unavailable [phone] Solange Guido MD Unavailable Dialysis Access Sites Type Status Location Placement Date Removal Da te Peritoneal Dialysis Catheter Mid lower abdomen Active Abdomen - Lower, Medial (Navel) Hemodialysis Cath Double Inactive Right Breast - Upper 05/01/2021 Hemodialysis Cath Double Inactive Right Breast - Upper 0 05/02/2021 11/22/2021 Procedures Procedure Name Priority Date/Time Associated Diagnosis Comments MRI BRAIN WO CONTRAST Schedule Routine, Read Routine (OP Routine) 10/12/2024 11:13 AM CDT Other symptoms and signs involving cognitive functions and awareness Disorientation, unspecified Other amnesia OCT, RETINA - OU - BOTH EYES Routine 08/25/2024 3:38 PM CDT Cystoid macular edema of both eyes EGFR Routine 04/13/2024 5:06 AM COOLER SERVICE SUPERVISOR HEMOGLOBIN A1C STAT 04/10/2024 11:41 PM COOLER SERVICE SUPERVISOR LIPID PANEL STAT 04/10/2024 11:41 PM COOLER SERVICE SUPERVISOR from Last 3 Months or Most Recently [...] 300 + = 14 units Active FA-vit Blkkk-J-btyw-vitamin D3 (Dialyvite 800-Ultra D) 0.8-2,000 mg-unit tablet [...] total) by mouth 06/04/19 25 Active vitamins A,C,O-ntlx-njnavy (PreserVision AREDS) 4,296 mcg-226 mg-90 mg capsule [...] mg total) by mouth every morning 07/08/19 Active Active Problems Problem Noted Date Diagnosed [...] damage Assessment & Plan (03/09/2024 6:25 PM COOLER SERVICE SUPERVISOR): Vision OD trends mild improvement, though [...] We discussed that genetic results would not knife changer. Given we have exhausted available [...] 03/26/2021 Assessment & Plan (03/26/2021 1:17 PM COOLER SERVICE SUPERVISOR): Enlarged mild sella turcica on a [...] units Assessment & Plan (03/26/2021 1:17 PM COOLER SERVICE SUPERVISOR): Chronic, uncontrolled, improving A1c today 7.7 [...] WNL Assessment & Plan (03/26/2021 1:16 PM COOLER SERVICE SUPERVISOR): Pt currently on Levothyroxine 112 mcg [...] 11/18/2018 Assessment & Plan (01/21/2019 2:02 PM COOLER SERVICE SUPERVISOR): Symptomatic. Will request for esophageal manometry. [...] well Assessment & Plan (03/26/2021 1:16 PM COOLER SERVICE SUPERVISOR): On statin therapy Tolerating well Last [...] nephrectomy. 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 [id number] Immunizations Immunization Administration Dates Next Due Hep [...] = 0.6 oz pur e alcohol) rarely [facility] DBL Acquisitionities Answer Date Recorded In the past 12 months has Pantry, gas, oil, or water [employer] threatened to shut off services in your [...] on file Legal Sex Male 2:23 AM COOLER SERVICE SUPERVISOR Gender Identity Not on file Sexual [...] CDT Respiratory Rate 16 04/13/2024 8:33 AM COOLER SERVICE SUPERVISOR Oxygen Saturation 98% 04/13/2024 8:33 AM COOLER SERVICE SUPERVISOR Inhaled Oxygen Concentration - - Weight 122.3 kg (269 lb 9.6 oz) 07/23/2024 1:22 PM CDT Height 172.7 cm (5' 8) 07/23/2024 1:22 PM CDT Body Mass Index 40.99 07/23/2024 1:22 PM CDT Results * MRI Brain WO Contrast (10/12/2024 11:13 AM CDT) Anatomical Region Laterality Modality Head and Neck N/A Magnetic Resonan ce 10/12/2024 4:19 PM CDT Narrative 10/12/2024 8:23 PM CDT EXAM DESCRIPTION: MRI BRAIN WO CONTRAST REASON FOR STUDY: other symptoms and signs involving cognitive functions and awareness Cognitive changes, confusion, worse over that last several weeks, no injury or trauma but patient states he has had several surgeries recently TECHNIQUE: Multiplanar imaging includes non-contrasted T1, T2, FLAIR, and diffusion with ADC map sequences. Additional sequence(s) sensitive to blood products. Images stored on PACS. COMPARISON: MRI brain pituitary from 08/26/2023. FINDINGS: [...] of the paranasal sinuses. No acute sinusitis. THIS IS AN ELECTRONICALLY VERIFIED FINAL REPORT 10/12/2024 8:23 PM - Electronically signed by Selwyn Wong M.D. LC: MARC Report ID: [id number] Reading Location: [id number] Procedure Note Dolores Wong MD - 10/12/2024 EXAM DESCRIPTION: MRI BRAIN WO CONTRAST REASON FOR STUDY: other symptoms and signs involving cognitive functionsand awareness Cognitive changes, confusion, worse over that last several weeks, noinjury or trauma but patient states he has had several surgeries recently TECHNIQUE: Multiplanar imaging includes non-contrasted T1, T2, FLAIR, and diffusion with ADC map sequences. Additional sequence(s) sensitive [employer] products. Images stored on PACS. COMPARISON: MRI brain pituitary from 08/26/2023. FINDINGS: CEREBRUM: No focal mass or cerebral parenchymal lesion. Diffusecerebral volume loss with prominent ventricles and sulci, stable. No abnormality evident on susceptibility weighted images to indicate hemosiderin or other chronic blood breakdown product within the brain parenchyma.Calcification of dentate nuclei of cerebellum and globus pallidus of basal gangliabilaterally. WHITE MATTER: Mild perivascular space prominence. Scattered foci of T2 hyperintensity as well as diffuse T2 hyperintensity in periventricularwhite matter probably microvascular related. POSTERIOR FOSSA: Mild cerebellar atrophy. Brainstem and cerebellum otherwise appear unremarkable. DIFFUSION IMAGING: No acute infarct. EXTRAAXIAL SPACES: No hemorrhage. No mass. BRAIN VOLUME: Ventricular and sulcal prominence in keeping with diffuse cerebral volume loss, slightly more than expected for patient of this age group. PITUITARY: Postop changes of the sella turcica. No pituitaryenlargement or focal lesion identified. No suprasellar extension. VASCULATURE: No flow disturbance identified. ORBITS: Postop changes of lens extraction on the left. The orbitsotherwise are unremarkable. PARANASAL SINUSES AND MASTOIDS: Mucoperiosteal thickening in thebilateral ethmoid air cells mucosal thickening throughout the sphenoid sinuses and resection of portions of right nasal turbinates all likely reflect trans-sphenoidal surgery. No acute sinusitis. OTHER: No other significant finding. IMPRESSION: 1. No acute intracranial finding. 2. Diffuse cerebral volume loss, slightly more than expected for patientof this age group. 3. Postop changes of the sella turcica. No pituitary enlargement orfocal lesion identified. 4. Postop changes of the paranasal sinuses. No acute sinusitis. THIS IS AN ELECTRONICALLY VERIFIED FINAL REPORT 10/12/2024 8:23 PM - Electronically signed by Selwyn Wong M.D. LC: MARC Report ID: [id number] Reading Location: [id number] us Provider Transcribed Order IMG MRI PROCEDURES Fi nal Result * OCT, Retina - OU - [...] MD PhD OPHTH TOMOGRAPHY Final Result * (ABNORMAL) eGFR (04/13/2024 5:06 AM COOLER SERVICE SUPERVISOR) eGFR 5(L) >=60 mL/min/1. 73 m2 Comment: [...] data was last reviewed 2020. Blood 04/13/2024 5:0 6 AM COOLER SERVICE SUPERVISOR 04/13/2024 5:31 AM COOLER SERVICE SUPERVISOR us Saul Engle MD LAB BLOOD ORDERABLES Final Resul t [facility] Department of Laboratories [place], [place] [id number] * (ABNORMAL) Lipid panel (04/10/2024 11:41 PM COOLER SERVICE SUPERVISOR) Cholesterol 145 30 - 199 mg/dL Comment: [...] on 2017. Triglycerides 453(H) <=149 mg/dL [facility] Comment: Interpretive Data Ages [...] revised on 2017. HDL 22(L) >=40 mg/dL [facility] Comment: Interpretive Data Ages [...] on 2017. LDL, calculated See Comment <=129 [facility] Comment: Unable to calculate LDL [...] on 2023. Non-HDL Cholesterol 123 mg/dL [facility] Comment: Interpretive Data Ages [...] last revised on 2017. Chol/HDL ratio 7 [facility] Blood 04/10/2024 11:4 1 PM COOLER SERVICE SUPERVISOR 04/10/2024 11:55 PM COOLER SERVICE SUPERVISOR us Nicole Boo MD LAB BLOOD ORDERABLES Final Result [facility] Department [place] [address] from Last 3 Months or Most Recently Relevant to Health Maintenance
--- OUTSIDE RECORDS SUMMARY | 2024-10-30 19:28 | XMS_ITS | Clinical Summary ---
Author Organization [facility] Address [facility] [place] [address] Care Team Providers Care Shipping Associate Name Role Phone Jeff Strickland MD Primary Care Provider [phone] Allergies Active Allergy Reactions Criticality Noted Date [...] by mouth nightly at bedtime. Active Multiple Vitamins-[place] als (PRESERVISION AREDS 2 OR) Take 1 [...] th e electric, gas, oil, or water [employer] threatened to shut off services in your [...] slept in a halfway (including now)? No 05/02/2023 Sex and Gender Information Value Date Recorded Sex Assigned at Not on file Legal Sex Male 10:10 AM CLINICAL DIETETIC TECHNICIAN Gender Identity Not on file Sexual [...] PPSV23) 08/09/2021 08/09/2020 COVID-19 Vaccine (4 - 2024-2 6 season) 2024 05/05/2020, 04/20/2020, 03/20/2020 DTaP, Tdap and Td [...] discharge from hospital Lifestyle No Alice Rizzo, [facility] Insurance AETNA Advance Directives * Full Code (Latest Code Status on File) Date Activated Date Inactivated Comments 05/02/2023 12:46 AM 05/03/2023 12:26 PM Care Teams Shipping Associate Relationship Specialty Start Date End Date Jeff Strickland MD [address] [place] [address] PCP - General FAMILY PRACTICE 02/22/23
--- OUTSIDE RECORDS SUMMARY | 2024-10-30 19:28 | XMS_ITS ---
Author Organization [facility] [place] [address] Care Team Providers Care Side Sawyer Name Role Phone Jeff Strickland MD Primary Care Provider Chan Nicholas MD Unavailable [phone] Alan Mccall MD Unavailable [phone] Ppeito Haro MD PhD Unavailable [phone] Solange Guido MD Unavailable [phone] Active Problems Problem Noted Date Diagnosed Date [...] damage Assessment & Plan (03/09/2024 6:25 PM FURNITURE SALES CONSULTANT): Vision OD trends mild improvement, though [...] discussed that genetic results would not exchange consultant. Given we have exhausted available treatment [...] 03/26/2021 Assessment & Plan (03/26/2021 1:17 PM FURNITURE SALES CONSULTANT): Enlarged mild sella turcica on a [...] units Assessment & Plan (03/26/2021 1:17 PM FURNITURE SALES CONSULTANT): Chronic, uncontrolled, improving A1c today 7.7 [...] WNL Assessment & Plan (03/26/2021 1:16 PM FURNITURE SALES CONSULTANT): Pt currently on Levothyroxine 112 mcg [...] 11/18/2018 Assessment & Plan (01/21/2019 2:02 PM FURNITURE SALES CONSULTANT): Symptomatic. Will request for esophageal manometry. [...] well Assessment & Plan (03/26/2021 1:16 PM FURNITURE SALES CONSULTANT): On statin therapy Tolerating well Last [...] nephrectomy. 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 [id number] Current Treatment and Therapy Plans No current [...] were not included. Kendall Carl 1955 Referring Equities Analyst: Alan Mccall Dialysis Info: NOD GFR 13 Type: Time: (Not currently on dialysis) days Blood Type: O NEG Body mass index is 37.36 kg/m . ALERTS Grid Molder: needs to establish Past Medical History: Diagnosis Date Arthropathy RA. Dr Strickland manages. 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 Becerra in [place]. CKD (chronic kidney disease), stage V Community acquired pneumonia 2018 [facility] hospitalized. Diabetes mellitus 20 years. Lantus pen. Esophageal reflux takes med Hypercholesteremia 5-10 yrs meds Hypertension takes meds Hypothyroidism meds 20 years Kidney stones 5-6 years ago had 2 in the same year. Malignancy right kidney 2012 Obstructive sleep apnea 3 years. [facility]. [facility] remember doctors name Renal cell carcinoma [address] [place] Preutt surgeon. followed up every 6 months until [...] file Gets together: Not on file Attends oriental orthodox service: Not on file Active member of [...] impression of this social services specialist that Kendall Carl has several positive factors for Kidney transplant candidacy from a psychosocial perspective. Patient appears to have appropriate knowledge of illness. Patient has sufficient insurance coverage and stable financial situation for post transplant needs. No concerns regarding substance abuse, legal issues, or mental health needs. Patient has adequate support system and appropriate discharge plan. Plan: equipment worker to provide supportive services as needed. Patient appears to be a reasonable candidate for transplant from a psychosocial perspective. -Post transplant arrangement forms are needed prior to being listed. -Updated toxicology results needed, per protocol Psychiatric Consult Recommended: No Transplant Electronic Security Technician: Joy Tam LCSW RD: 11/09/2019 BMI= 36.2, [...] my fitness pal or my food coach builder) - Consume no more than 2000 calories a day E-mailed pt's a 2000 calorie, CKD meal plan. Items Still Pending: Clinic, colonoscopy Acute pain of left shoulder 01/25/2019 03/25/2023 Non-cardiac chest pain 11/18/201803/25 Assessment & Plan (01/21/2019 2:02 PM FURNITURE SALES CONSULTANT): The pain is persistent. The patient [...] has had extensive cardiac workup by the zipper measurer including coronary angiogram. He has chest pain [...]
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
--- OUTSIDE RECORDS SUMMARY | 2024-10-30 19:31 | XMS_ITS ---
Author Organization [facility] ([facility]) Address [facility] [address] [address] Care Team Providers Care Stereo Operator Name Role Phone Unavailable Unavailable Unavailable Allergies, Adverse Reactions, Alerts Allergy Name Allergy Type Status Severity Reaction(s) Onset Date Inactive Date Treating Clinician Comments No Known Allergies Allergy Active 2021-11 17:57:3 0 Medications Ordered Medication Name Filled Medication Name Start Date Stop Date Current Medication? Ordering Clinician Indication Dosage Frequency Signature (SIG) Comments Components Venofer 10-30 17:41: 39 Yes [id number] Number of Repeats Allowed: Frequency: Every monthDoses Ordered: Maintenanc e Dose 100 Milligram Route: Intravenou s Mircera 10-30 17:41: 00 Yes [id number] Number of Repeats Allowed: Frequency: YASIR dosing, every three to four weeks Mircera -18 15:09: 47 Yes [id number] Number of Repeats Allowed: Frequency: YASIR dosing, every three to four weeks Mircera -09 16:56: 41 Yes [id number] Number of Repeats Allowed: Frequency: YASIR dosing, every three to four weeks Gabapentin - 15:26: 55 Yes Number of Repeats Allowed: Frequency: One time a day Furosemide 05-05 15:25: 40 Yes Number of Repeats Allowed: Frequency: Two times a day dilTIAZem HCl ER 04-09 20:14: 35 Yes Number of Repeats Allowed: Frequency: Two times a day ICaps AREDS Formula 03-17 21:08: 07 Yes Number of Repeats Allowed: Frequency: Every twelve hours Venofer 03-08 14:38: 53 Yes [id number] Number of Repeats Allowed: Frequency: Every monthDoses Ordered: Maintenanc e Dose 100 Milligram Route: Intravenou s Influenza, high-dose, quadrivalen t, PF 11-04 15:34: 48 Yes [id number] Number of Repeats Allowed: Frequency: One time only Lisinopril 05-07 17:53: 50 Yes Number of Repeats Allowed: Frequency: Two times a day Atorvastati n Calcium 04-09 15:51: 39 Yes Number of Repeats Allowed: Frequency: One time a day Finasteride 2022-02 13:45: 02 Yes Number of Repeats Allowed: Frequency: Once a day, at bedtime Basaglar KwikPen 09-25 16:28: 08 Yes Number of Repeats Allowed: Frequency: Two times a day Levothyroxi ne Sodium 09-25 16:25: 40 Yes [...] Allowed: Frequency: Once a day, at bedtime Vitamin D3 2021-02 0 05:00: 00 Yes Number of Repeats Allowed: Frequency: One time a day Carvedilol 10-15 05:00: 00 Yes Number of Repeats Allowed: Frequency: Two times a day PreserVisio n AREDS 2 3- 05:00: 00 Yes Number of Repeats Allowed: [...] Gain BFR DFR Actual UF Dialysis Access October 29, 2024 [facility] October 28, 2024 [facility] October 27, 2024 [facility] BP Sitting (Pre-Dialysis) 151/79 mmH g Sitting Heart Rate Pre-Dialysis 66 BPM Temperature Pre-Dialysis 98 degF Weight Pre-Dialysis 111.3 kg October 26, 2024 [facility] October 25, 2024 [facility] October 24, 2024 [facility] October 23, 2024 [facility] October 22, 2024 [facility] October 21, 2024 [facility] October 20, 2024 [facility] October 19, 2024 [facility] October 18, 2024 [facility] October 17, 2024 [facility] October 16, 2024 [facility] October 15, 2024 [facility] October 14, 2024 [facility] October 14, 2024 [facility] October 13, 2024 [facility] October 12, 2024 [facility] October 11, 2024 [facility] October 10, 2024 [facility] October 09, 2024 [facility] October 08, 2024 [facility] October 07, 2024 [facility] BP Sitting (Pre-Dialysis) 77/60 mmHg Sitting Heart Rate Pre-Dialysis 61 BPM Temperature Pre-Dialysis 97.6 degF Weight Pre-Dialysis 113 kg October 07, 2024 [facility] October 06, 2024 [facility] October 05, 2024 [facility] October 04, 2024 [facility] October 03, 2024 [facility] October 02, 2024 [facility] October 01, 2024 [facility] September 30, 2024 [facility] September 29, 2024 [facility] September 28, 2024 [facility] September 27, 2024 [facility] September 26, 2024 [facility] September 23, 2024 [facility] September 22, 2024 [facility] September 21, 2024 [facility] September 20, 2024 [facility] September 19, 2024 [facility] September 18, 2024 [facility] September 17, 2024 [facility] September 16, 2024 [facility] September 12, 2024 [facility] September 11, 2024 [facility] September 10, 2024 [facility] September 09, 2024 [facility] September 08, 2024 [facility] September 03, 2024 [facility] September 02, 2024 [facility] September 01, 2024 [facility] August 31, 2024 [facility] August 31, 2024 [facility] August 30, 2024 [facility] August 29, 2024 [facility] August 28, 2024 [facility] August 27, 2024 [facility] August 26, 2024 [facility] August 25, 2024 [facility] August 24, 2024 [facility] BP Sitting (Pre-Dialysis) 113/61 mmHg Sitting Heart Rate Pre-Dialysis 64 BPM Temperature Pre-Dialysis 98.3 degF Weight Pre-Dialysis 119 kg August 24, 2024 [facility] August 23, 2024 [facility] August 22, 2024 [facility] August 21, 2024 [facility] August 20, 2024 [facility] August 19, 2024 [facility] August 18, 2024 [facility] August 17, 2024 [facility] August 16, 2024 [facility] August 15, 2024 [facility] August 14, 2024 [facility] August 13, 2024 [facility] August 12, 2024 [facility] August 11, 2024 [facility] August 10, 2024 [facility] August 09, 2024 [facility] August 08, 2024 [facility] August 07, 2024 [facility] August 06, 2024 [facility] August 05, 2024 [facility] August 04, 2024 [facility] August 03, 2024 [facility] BP Sitting (Pre-Dialysis) 159/68 mmHg BP Standing (Pre-Dialysis) 117/61 mmHg Sitting Heart Rate Pre-Dialysis 56 BPM Standing Heart Rate Pre-Dialysis 63 BPM Temperature Pre-Dialysis 98 degF Weight Pre-Dialysis 120 kg August 03, 2024 [facility] August 02, 2024 [facility] BP Sitting (Pre-Dialysis) 159/68 mmHg BP Standing (Pre-Dialysis) 117/61 mmHg Sitting Heart Rate Pre-Dialysis 56 BPM Standing Heart Rate Pre-Dialysis 63 BPM Temperature Pre-Dialysis 97.7 degF Weight Pre-Dialysis 122.5 kg August 02, 2024 [facility] August 01, 2024 [facility] July 31, 2024 [facility] July 30, 2024 [facility] July 29, 2024 [facility] July 28, 2024 [facility] July 24, 2024 [facility] July 23, 2024 [facility] July 22, 2024 [facility] July 21, 2024 [facility] July 20, 2024 [facility] July 19, 2024 [facility] July 18, 2024 [facility] July 17, 2024 [facility] July 16, 2024 [facility] July 15, 2024 [facility] July 14, 2024 [facility] July 13, 2024 [facility] July 12, 2024 [facility] July 11, 2024 [facility] July 10, 2024 [facility] July 09, 2024 [facility] July 08, 2024 [facility] July 07, 2024 [facility] July 06, 2024 [facility] BP Sitting (Pre-Dialysis) 144/61 mmHg BP Standing (Pre-Dialysis) 117/56 mmHg Sitting Heart Rate Pre-Dialysis 61 BPM Standing Heart Rate Pre-Dialysis 74 BPM Temperature Pre-Dialysis 98.1 degF Weight Pre-Dialysis 119 kg July 06, 2024 [facility] July 05, 2024 [facility] BP Sitting (Pre-Dialysis) 128/70 mmHg Sitting Heart Rate Pre-Dialysis 59 BPM Temperature Pre-Dialysis 98 degF Weight Pre-Dialysis 118.1 kg July 05, 2024 [facility] July 04, 2024 [facility] July 03, 2024 [facility] July 02, 2024 [facility] July 01, 2024 [facility] June 30, 2024 [facility] June 29, 2024 [facility] June 28, 2024 [facility] June 27, 2024 [facility] June 26, 2024 [facility] June 25, 2024 [facility] June 24, 2024 [facility] June 23, 2024 [facility] June 22, 2024 [facility] BP Sitting (Pre-Dialysis) 159/74 mmHg BP Standing (Pre-Dialysis) 108/54 mmHg Sitting Heart Rate Pre-Dialysis 56 BPM Standing Heart Rate Pre-Dialysis 80 BPM Temperature Pre-Dialysis 97.8 degF Weight Pre-Dialysis 119 kg June 22, 2024 [facility] June 21, 2024 [facility] June 20, 2024 [facility] June 19, 2024 [facility] June 18, 2024 [facility] June 17, 2024 [facility] June 16, 2024 [facility] June 15, 2024 [facility] June 14, 2024 [facility] June 13, 2024 [facility] June 12, 2024 [facility] June 11, 2024 [facility]D June 10, 2024 [facility] June 09, 2024 [facility]CPD June 08, 2024 [facility] June 07, 2024 [facility] June 06, 2024 [facility] June 05, 2024 [facility] June 04, 2024 [facility] June 03, 2024 [facility] June 03, 2024 [facility] June 02, 2024 [facility] June 01, 2024 [facility] May 31, 2024 CCPD May 30, 2024 CCPD May 29, 2024 [facility]CPD May 28, 2024 [facility] BP Sitting (Pre-Dialysis) 118/64 mmHg BP Standing (Pre-Dialysis) 113/63 mmHg Sitting Heart Rate Pre-Dialysis 64 BPM Standing Heart Rate Pre-Dialysis 59 BPM Temperature Pre-Dialysis 95.9 degF Weight Pre-Dialysis 118 kg May 28, 2024 [facility] May 27, 2024 [facility] May 26, 2024 [facility] May 25, 2024 [facility] May 24, 2024 [facility] May 23, 2024 [facility] May 22, 2024 [facility] May 21, 2024 [facility] May 20, 2024 [facility]D May 19, 2024 [facility]D May 18, 2024 [facility]D May 17, 2024 [facility]CPD May 16, 2024 [facility]D May 15, 2024 [facility]D May 14, 2024 [facility]D May 13, 2024 [facility]D May 12, 2024 [facility]CPD May 11, 2024 [facility]CPD May 10, 2024 CCPD May 09, 2024 CCPD May 08, 2024 [facility]CPD May 07, 2024 [facility]CPD May 06, 2024 [facility]CPD May 05, 2024 [facility]CPD May 04, 2024 [facility] BP Sitting (Pre-Dialysis) 151/73 mmHg BP Standing (Pre-Dialysis) 145/68 mmHg Sitting Heart Rate Pre-Dialysis 62 BPM Standing Heart Rate Pre-Dialysis 66 BPM Temperature Pre-Dialysis 96.8 degF Weight Pre-Dialysis 119.5 kg May 04, 2024 [facility] May 03, 2024 [facility] May 02, 2024 [facility]D May 01, 2024 [facility] April 30, 2024 [facility] April 29, 2024 [facility] April 28, 2024 [facility] April 27, 2024 [facility] BP Sitting (Pre-Dialysis) 163/75 mmHg BP Standing (Pre-Dialysis) 164/101 mmHg Sitting Heart Rate Pre-Dialysis 67 BPM Standing Heart Rate Pre-Dialysis 69 BPM Temperature Pre-Dialysis 97 degF Weight Pre-Dialysis 120 kg April 27, 2024 [facility]CPD April 26, 2024 [facility]D April 25, 2024 [facility]D April 24, 2024 [facility]D April 23, 2024 [facility]D April 22, 2024 [facility]D April 21, 2024 [facility]D April 20, 2024 [facility]D April 19, 2024 [facility]D April 18, 2024 [facility]D April 17, 2024 CCPD April 16, 2024 [facility]D April 15, 2024 CCPD April 14, 2024 CCPD April 13, 2024 [facility]CPD April 10, 2024 [facility]D April 09, 2024 [facility]D April 08, 2024 [facility]D April 03, 2024 [facility]CPD April 02, 2024 [facility]CPD April 01, 2024 CCPD March 31, 2024 CCPD March 30, 2024 CCPD March 29, 2024 [facility]CPD March 28, 2024 [facility]CPD March 27, 2024 CCPD March 26, 2024 CCPD March 25, 2024 [facility]CPD March 24, 2024 [facility] BP Sitting (Pre-Dialysis) 164/78 mmHg BP Standing (Pre-Dialysis) 121/67 mmHg Sitting Heart Rate Pre-Dialysis 61 BPM Standing Heart Rate Pre-Dialysis 69 BPM Temperature Pre-Dialysis 97.3 degF Weight Pre-Dialysis 120 kg March 24, 2024 CCPD March 23, 2024 [facility] March 22, 2024 [facility]D March 21, 2024 [facility] March 20, 2024 [facility] March 19, 2024 [facility] March 18, 2024 [facility] March 17, 2024 [facility] March 16, 2024 [facility] March 15, 2024 [facility]D March 13, 2024 [facility]D March 12, 2024 [facility]CPD March 11, 2024 [...] February 07, 2024 [facility] February 06, 2024 [facility] February 05, 2024 [facility] February 04, 2024 [facility] February 03, 2024 [facility]CP BP Sitting (Pre-Dialysis) 138/66 mmHg BP Standing (Pre-Dialysis) 122/81 mmHg Sitting Heart Rate Pre-Dialysis 60 BPM Standing Heart Rate Pre-Dialysis 62 BPM Temperature Pre-Dialysis 98.4 degF Weight Pre-Dialysis 122.7 kg February 03, 2024 [facility] February 02, 2024 [facility] February 01, 2024 [facility] January 31, 2024 [facility] January 30, 2024 [facility] January 29, 2024 [facility] January 28, 2024 [facility] January 27, 2024 [facility]CP BP Sitting (Pre-Dialysis) 155/78 mmHg BP Standing (Pre-Dialysis) 141/67 mmHg Sitting Heart Rate Pre-Dialysis 60 BPM Standing Heart Rate Pre-Dialysis 59 BPM Temperature Pre-Dialysis 94.7 degF Weight Pre-Dialysis 122 kg January 27, 2024 [facility] January 26, 2024 [facility] January 25, 2024 [facility] January 24, 2024 [facility] January 23, 2024 [facility] January 22, 2024 [facility] January 21, 2024 [facility] 2024 [facility] January 19, 2024 [facility] January 18, 2024 [facility] January 17, 2024 [facility] January 16, 2024 [facility] January 15, 2024 [facility] January 14, 2024 [facility] January 13, 2024 [facility] January 12, 2024 [facility] January 11, 2024 [facility] January 10, 2024 [facility] January 09, 2024 [facility] January 08, 2024 [facility] January 07, 2024 [facility] January 06, 2024 [facility] BP Sitting (Pre-Dialysis) 128/62 mmHg BP Standing (Pre-Dialysis) 140/63 mmHg Sitting Heart Rate Pre-Dialysis 65 BPM Standing Heart Rate Pre-Dialysis 63 BPM Temperature Pre-Dialysis 97 degF Weight Pre-Dialysis 118.1 kg January 06, 2024 [facility] January 05, 2024 [facility] January 04, 2024 [facility] January 03, 2024 [facility] January 02, 2024 [facility] January 01, 2024 [facility] December 31, 2023 [facility] December 30, 2023 [facility] BP Sitting (Pre-Dialysis) [...] December 10, 2023 [facility] December 09, 2023 BP Sitting (Pre-Dialysis) 121/68 mmHg BP Standing (Pre-Dialysis) 110/52 mmHg Sitting Heart Rate Pre-Dialysis 63 BPM Standing Heart Rate Pre-Dialysis 64 BPM Temperature Pre-Dialysis 96.9 degF Weight Pre-Dialysis 117.2 kg December 09, 2023 [facility] December 08, 2023 [facility] December 07, 2023 [facility] December 06, 2023 [facility] December 05, 2023 [facility] December 04, 2023 [facility] December 03, 2023 [facility] December 02, 2023 BP Sitting (Pre-Dialysis) 111/60 mmHg BP Standing [...] November 19, 2023 [facility] November 18, 2023 [facility] BP Sitting (Pre-Dialysis) 120/59 mmHg BP Standing [...] November 05, 2023 [facility] November 04, 2023 [facility] BP Sitting (Pre-Dialysis) 149/52 mmH g BP [...] October 23, 2023 [facility] October 22, 2023 [facility] BP Sitting (Pre-Dialysis) 120/64 mmH g BP [...] September 25, 2023 [facility] September 24, 2023 [facility] BP Sitting (Pre-Dialysis) 164/90 mmHg Sitting Heart [...] June 28, 2023 [facility] June 27, 2023 [facility] BP Sitting (Pre-Dialysis) 132/69 mmHg BP Standing [...] May 22, 2023 [facility] May 21, 2023 [facility]CP BP Sitting (Pre-Dialysis) 174/89 mmHg BP Standing [...] January 01, 2023 [facility] December 31, 2022 [facility] BP Sitting (Pre-Dialysis) 140/66 mmHg BP Standing [...] October 02, 2022 [facility] October 01, 2022 [facility] BP Sitting (Pre-Dialysis) 138/73 mmHg BP Standing [...] May 13, 2022 [facility] May 12, 2022 [facility] May 11, 2022 [facility] May 10, 2022 [facility] May 09, 2022 [facility] May 08, 2022 [facility] May 07, 2022 [facility] BP Sitting (Pre-Dialysis) 157/82 mmHg BP Standing (Pre-Dialysis) 157/82 mmHg Sitting Heart Rate Pre-Dialysis 73 BPM Standing Heart Rate Pre-Dialysis 73 BPM Temperature Pre-Dialysis 97.2 degF Weight Pre-Dialysis 111.8 kg May 07, 2022 [facility] May 06, 2022 [facility] May 05, 2022 [facility] May 04, 2022 [facility] May 03, 2022 [facility] May 02, 2022 [facility] May 01, 2022 [facility] April 30, 2022 [...] of Dialysis Procedure Order Order Date/Time Observations [facility] October 27, 2024 Target Weight 111.5 kg Ordered Access Type Peritoneal dialysis catheter Vendor Ideapod Total Fill Volume per 24 Hour 20458 mL Target Cycler Total Time 10hr Treatment [...] Min Fill Number: 1 pd_solution_strength_code_id Varied-See Instruction(s) [facility] Target Weight 114 kg Ordered Access Type Peritoneal dialysis catheter Vendor Murrell Total Fill Volume per 24 Hour 38756 mL Target Cycler Total Time 10hr Treatment [...] Min Fill Number: 1 pd_solution_strength_code_id Varied-See Instruction(s) [facility] 2024 Observation Value Target Weight 119 kg Ordered Access Type Peritoneal dialysis catheter Vendor Murrell Total Fill Volume per 24 Hour 29359 mL Target Cycler Total Time 10hr Treatment [...] Min Fill Number: 1 pd_solution_strength_code_id Varied-See Instruction(s) [facility] 2024 Observation Value Target Weight 118 kg Ordered Access Type Peritoneal dialysis catheter Vendor Murrell Total Fill Volume per 24 Hour 43642 mL Target Cycler Total Time 10hr Treatment [...] Date Result/Unit Status Ref Range Result Comments UREA CLR UR/BSA 2024-10-29 06:34:24 0.2 mL/min F L/WK RESID CC 2024-10-29 06:34:24 5.13 L/wk F L/WK/1.73 TOTAL 2024-10-29 06:34:24 53.15 L/WK/B F L/WK/1.73 PDF 2024-10-29 06:34:24 49.21 L/WK/B F CRE CLR UR 2024-10-29 06:34:24 1 mL/min F L/WK PDF CC 2024-10-29 06:34:24 64.08 L/wk F KT/V PDF (M) 2024-10-29 06:34:24 1.47 Kt/V F TBW MILLER MALE 2024-10-29 06:34:24 52.21 Liters F BSA TOBIN 2024-10-29 06:34:24 2.25 sq m F CRE CLR UR/BSA 2024-10-29 06:34:24 1 mL/min F KT/V TOTAL (M) 2024-10-29 06:34:24 1.51 Kt/V F KT/V RESID (M) 2024-10-29 06:34:24 0.04 Kt/V F L/WK/1.73 RESID 2024-10-29 06:34:24 3.94 L/WK/B F UREA CLR UR 2024-10-29 06:34:24 0.2 mL/min F PCR PD MALE 2024-10-29 06:34:24 39 g/day F nPNA (PD MALE) 2024-10-29 06:34:24 0.47 G/KG/D F PNA (PD) 2024-10-29 06:34:24 42.5 g/day F NPCR PD MALE 2024-10-29 06:34:24 0.43 G/KG/D F Urea Gen Rate 2024-10-29 06:34:24 5.4 GM/D F BUN/CREAT 2024-10-29 06:33:17 4.2 Calc F 6.9-32.9 Urea nitrogen [Mass/volume] in Serum or Plasma 2024-10-29 06:32:21 32 mg/dL F 9.0-23.0 Creatinine [Mass/volume] in Serum or Plasma 2024-10-29 06:32:21 7.64 mg/dL F 0.7-1.3 Urea nitrogen [Mass/volume] in Peritoneal fluid --24 hours post peritoneal dialysis 2024-10-29 01:57:18 22 mg/dL F Creatinine [Mass/volume] in Peritoneal dialysis fluid 2024-10-29 01:57:18 4.4 mg/dL F Creatinine [Mass/volume] in Urine 2024-10-29 00:55:25 86.93 mg/dL F Urea nitrogen [Mass/volume] in Urine 2024-10-29 00:55:25 105 mg/dL F PATIENT AGE 2024-10-27 19:13:20 69 Years F HEIGHT IN INCHES 2024-10-27 19:13:20 69 Inches F BODY WEIGHT (LBS) 2024-10-27 19:13:20 244.8 lbs F AMPUTATE FACTOR 2024-10-27 19:13:20 0 F MINIMUM GOAL: KT/V PD 2024-10-27 19:13:20 1.7 F Total Volume of EFFL/DIAL 2024-10-27 19:13:20 16724 mLs F COLLECTION TIME FOR URINE 2024-10-27 19:13:20 1440 min F TOTAL VOLUME-24 HR URINE 2024-10-27 19:13:20 100 mL F L/WK PDF CC 2024-10-08 17:25:28 see comments F Unable to Calculate. L/WK/1.73 RESID 2024-10-08 17:25:28 see comments F Unable to Calculate. KT/V TOTAL (M) 2024-10-08 17:25:28 see comments F Unable to Calculate. L/WK/1.73 TOTAL 2024-10-08 17:25:28 see comments F Unable to Calculate. KT/V PDF (M) 2024-10-08 17:25:28 see comments F Unable to Calculate. CRE CLR UR 2024-10-08 17:25:28 see comments F 97.0-137.0 Unable to Calculate. CRE CLR UR/BSA 2024-10-08 17:25:28 see comments F 85.0-125.0 Unable to Calculate. L/WK/1.73 PDF 2024-10-08 17:25:28 see comments F Unable to Calculate. UREA CLR UR 2024-10-08 17:25:28 see comments F Unable to Calculate. KT/V RESID (M) 2024-10-08 17:25:28 see comments F Unable to Calculate. L/WK RESID CC 2024-10-08 17:25:28 see comments F Unable to Calculate. BUN/CREAT 2024-10-08 17:25:28 F Unable to Calculate.,Recollec t - Quantity not sufficient UREA CLR UR/BSA 2024-10-08 17:25:28 see comments F 64.0-99.0 Unable to Calculate. Urea nitrogen [Mass/volume] in Serum or Plasma 2024-10-08 17:24:44 F Recollect - Quantity not sufficient Creatinine [Mass/volume] in Serum or Plasma 2024-10-08 17:24:44 F Recollect - Quantity not sufficient Urea Gen Rate 2024-10-08 14:05:09 7.2 GM/D F nPNA (PD MALE) 2024-10-08 14:05:09 0.57 G/KG/D F NPCR PD MALE 2024-10-08 14:05:09 0.52 G/KG/D F PCR PD MALE 2024-10-08 14:05:09 47 g/day F PNA (PD) 2024-10-08 14:05:09 51.9 g/day F Creatinine [Mass/volume] in Peritoneal dialysis fluid 2024-10-08 14:04:13 5.67 mg/dL F Urea nitrogen [Mass/volume] in Peritoneal fluid --24 hours post peritoneal dialysis 2024-10-08 14:04:13 29 mg/dL F Creatinine [Mass/volume] in Urine 2024-10-08 14:02:19 127.02 mg/dL F Urea nitrogen [Mass/volume] in Urine 2024-10-08 14:02:19 115 mg/dL F TBW MILLER MALE 2024-10-07 19:10:27 52.79 Liters F BSA TOBIN 2024-10-07 19:10:27 2.27 sq m F Total Volume of EFFL/DIAL 2024-10-07 19:09:30 45786 mLs F AMPUTATE FACTOR 2024-10-07 18:55:17 0 F PATIENT AGE 2024-10-07 18:55:17 69 Years F BODY WEIGHT (LBS) 2024-10-07 18:55:17 248.6 lbs F HEIGHT IN INCHES 2024-10-07 18:55:17 69 Inches F MINIMUM GOAL: KT/V PD 2024-10-07 18:55:17 1.7 F COLLECTION TIME FOR URINE 2024-10-07 18:55:17 1440 min F TOTAL VOLUME-24 HR URINE 2024-10-07 18:55:17 100 mL F BUN/CREAT 2024-08-28 06:48:15 4.4 Calc F 6.9-32.9 BUN/CREAT 2024-08-28 06:48:15 4.4 Calc F 6.9-32.9 BUN/CREAT 2024-08-28 06:48:15 4.4 Calc F 6.9-32.9 BUN/CREAT 2024-08-28 06:48:15 4.4 Calc F 6.9-32.9 Urea nitrogen [Mass/volume] in Serum or Plasma 2024-08-28 06:45:07 42 mg/dL F 9.0-23.0 Creatinine [Mass/volume] in Serum or Plasma 2024-08-28 06:45:07 9.64 mg/dL F 0.7-1.3 Urea nitrogen [Mass/volume] in Serum or Plasma 2024-08-28 06:45:07 42 mg/dL F 9.0-23.0 Creatinine [Mass/volume] in Serum or Plasma 2024-08-28 06:45:07 9.64 mg/dL F 0.7-1.3 Creatinine [Mass/volume] in Serum or Plasma 2024-08-28 06:45:07 9.64 mg/dL F 0.7-1.3 Urea nitrogen [Mass/volume] in Serum or Plasma 2024-08-28 06:45:07 42 mg/dL F 9.0-23.0 Creatinine [Mass/volume] in Serum or Plasma 2024-08-28 06:45:07 9.64 mg/dL F 0.7-1.3 Urea nitrogen [Mass/volume] in Serum or Plasma 2024-08-28 06:45:07 42 mg/dL F 9.0-23.0 BUN/CREAT 2024-08-03 14:34:30 4 Calc F 6.9-32.9 BUN/CREAT 2024-08-03 14:34:30 4 Calc F 6.9-32.9 Urea nitrogen [Mass/volume] in Serum or Plasma 2024-08-03 14:33:21 40 mg/dL F 9.0-23.0 Creatinine [Mass/volume] in Serum or Plasma 2024-08-03 14:33:21 10.03 mg/dL F 0.7-1.3 Urea nitrogen [Mass/volume] in Serum or Plasma 2024-08-03 14:33:21 40 mg/dL F 9.0-23.0 Creatinine [Mass/volume] in Serum or Plasma 2024-08-03 14:33:21 10.03 mg/dL F 0.7-1.3 L/WK/1.73 [facility] 2024-07-09 14:47:28 58.17 L/WK/B K L/WK [facility] 2024-07-09 14:47:28 77.71 L/wk K KT/V TOTAL () 2024-07-09 14:47:28 1.83 Kt/V K L/WK/1.73 TOTAL 2024-07-09 14:47:28 64.19 L/WK/B K KT/V [facility]) 2024-07-09 14:47:28 1.73 Kt/V K L/WK/1.73 TOTAL 2024-07-09 14:47:28 64.19 L/WK/B K KT/V [facility]) 2024-07-09 14:47:28 1.73 Kt/V K L/WK/1.73 [facility] 2024-07-09 14:47:28 58.17 L/WK/B K L/WK [facility] 2024-07-09 14:47:28 77.71 L/wk K KT/V TOTAL () 2024-07-09 14:47:28 1.83 Kt/V K L/WK/1.73 [facility] 2024-07-09 14:47:28 58.17 L/WK/B K L/WK [facility] 2024-07-09 14:47:28 77.71 L/wk K L/WK/1.73 TOTAL 2024-07-09 14:47:28 64.19 L/WK/B K KT/V PDF (M) 2024-07-09 14:47:28 1.73 Kt/V K KT/V TOTAL (M) 2024-07-09 14:47:28 1.83 Kt/V K L/WK PDF CC 2024-07-09 14:47:28 77.71 L/wk K L/WK/1.73 TOTAL 2024-07-09 14:47:28 64.19 L/WK/B K KT/V PDF (M) 2024-07-09 14:47:28 1.73 Kt/V K KT/V TOTAL (M) 2024-07-09 14:47:28 1.83 Kt/V K L/WK/1.73 PDF 2024-07-09 14:47:28 58.17 L/WK/B K Urea Gen Rate 2024-07-09 14:47:28 8.7 GM/D K PCR PD MALE 2024-07-09 14:47:28 54 g/day K nPNA (PD MALE) 2024-07-09 14:47:28 0.63 G/KG/D K PNA (PD) 2024-07-09 14:47:28 59.2 g/day K NPCR PD MALE 2024-07-09 14:47:28 0.57 G/KG/D K PNA (PD) 2024-07-09 14:47:28 59.2 g/day K Urea Gen Rate 2024-07-09 14:47:28 8.7 GM/D K NPCR PD MALE 2024-07-09 14:47:28 0.57 G/KG/D K PCR PD MALE 2024-07-09 14:47:28 54 g/day K nPNA (PD MALE) 2024-07-09 14:47:28 0.63 G/KG/D K Urea Gen Rate 2024-07-09 14:47:28 8.7 GM/D K NPCR PD MALE 2024-07-09 14:47:28 0.57 G/KG/D K PNA (PD) 2024-07-09 14:47:28 59.2 g/day K nPNA (PD MALE) 2024-07-09 14:47:28 0.63 G/KG/D K PCR PD MALE 2024-07-09 14:47:28 54 g/day K NPCR PD MALE 2024-07-09 14:47:28 0.57 G/KG/D K PNA (PD) 2024-07-09 14:47:28 59.2 g/day K nPNA (PD MALE) 2024-07-09 14:47:28 0.63 G/KG/D K PCR PD MALE 2024-07-09 14:47:28 54 g/day K Urea Gen Rate 2024-07-09 14:47:28 8.7 GM/D K Total Volume of EFFL/DIAL 2024-07-09 14:46:38 84551 mLs F Total Volume of EFFL/DIAL 2024-07-09 14:46:38 60587 mLs F Total Volume of EFFL/DIAL 2024-07-09 14:46:38 44739 mLs F Total Volume of EFFL/DIAL 2024-07-09 14:46:38 55016 mLs F L/WK/1.73 RESID 2024-07-08 02:26:56 6.02 L/WK/B F UREA CLR UR/BSA 2024-07-08 02:26:56 0.4 mL/min F 64.0-99.0 CRE CLR UR/BSA 2024-07-08 02:26:56 1 mL/min F 85.0-125.0 CRE CLR UR 2024-07-08 02:26:56 1 mL/min F 97.0-137.0 L/WK RESID CC 2024-07-08 02:26:56 8.04 L/wk F UREA CLR UR 2024-07-08 02:26:56 0.5 mL/min F KT/V RESID (M) 2024-07-08 02:26:56 0.1 Kt/V F UREA CLR UR 2024-07-08 02:26:56 0.5 mL/min F KT/V RESID (M) 2024-07-08 02:26:56 0.1 Kt/V F L/WK/1.73 RESID 2024-07-08 02:26:56 6.02 L/WK/B F L/WK RESID CC 2024-07-08 02:26:56 8.04 L/wk F CRE CLR UR/BSA 2024-07-08 02:26:56 1 mL/min F 85.0-125.0 CRE CLR UR 2024-07-08 02:26:56 1 mL/min F 97.0-137.0 UREA CLR UR/BSA 2024-07-08 02:26:56 0.4 mL/min F 64.0-99.0 UREA CLR UR 2024-07-08 02:26:56 0.5 mL/min F CRE CLR UR/BSA 2024-07-08 02:26:56 1 mL/min F 85.0-125.0 L/WK/1.73 RESID 2024-07-08 02:26:56 6.02 L/WK/B F KT/V RESID (M) 2024-07-08 02:26:56 0.1 Kt/V F L/WK RESID CC 2024-07-08 02:26:56 8.04 L/wk F UREA CLR UR/BSA 2024-07-08 02:26:56 0.4 mL/min F 64.0-99.0 CRE CLR UR 2024-07-08 02:26:56 1 mL/min F 97.0-137.0 UREA CLR UR/BSA 2024-07-08 02:26:56 0.4 mL/min F 64.0-99.0 CRE CLR UR/BSA 2024-07-08 02:26:56 1 mL/min F 85.0-125.0 UREA CLR UR 2024-07-08 02:26:56 0.5 mL/min F L/WK/1.73 RESID 2024-07-08 02:26:56 6.02 L/WK/B F CRE CLR UR 2024-07-08 02:26:56 1 mL/min F 97.0-137.0 KT/V RESID (M) 2024-07-08 02:26:56 0.1 Kt/V F L/WK RESID CC 2024-07-08 02:26:56 8.04 L/wk F Urea nitrogen [Mass/volume] in Urine 2024-07-08 02:26:16 212 mg/dL F Creatinine [Mass/volume] in Urine 2024-07-08 02:26:16 98.27 mg/dL F Creatinine [Mass/volume] in Urine 2024-07-08 02:26:16 98.27 mg/dL F Urea nitrogen [Mass/volume] in Urine 2024-07-08 02:26:16 212 mg/dL F Creatinine [Mass/volume] in Urine 2024-07-08 02:26:16 98.27 mg/dL F Urea nitrogen [Mass/volume] in Urine 2024-07-08 02:26:16 212 mg/dL F Urea nitrogen [Mass/volume] in Urine 2024-07-08 02:26:16 212 mg/dL F Creatinine [Mass/volume] in Urine 2024-07-08 02:26:16 98.27 mg/dL F Urea nitrogen [Mass/volume] in Peritoneal fluid --24 hours post peritoneal dialysis 2024-07-07 17:54:18 35 mg/dL F Creatinine [Mass/volume] in Peritoneal dialysis fluid 2024-07-07 17:54:18 6.79 mg/dL F Urea nitrogen [Mass/volume] in Peritoneal fluid --24 hours post peritoneal dialysis 2024-07-07 17:54:18 35 mg/dL F Creatinine [Mass/volume] in Peritoneal dialysis fluid 2024-07-07 17:54:18 6.79 mg/dL F Urea nitrogen [Mass/volume] in Peritoneal fluid --24 hours post peritoneal dialysis 2024-07-07 17:54:18 35 mg/dL F Creatinine [Mass/volume] in Peritoneal dialysis fluid 2024-07-07 17:54:18 6.79 mg/dL F Creatinine [Mass/volume] in Peritoneal dialysis fluid 2024-07-07 17:54:18 6.79 mg/dL F Urea nitrogen [Mass/volume] in Peritoneal fluid --24 hours post peritoneal dialysis 2024-07-07 17:54:18 35 mg/dL F TBW MILLER MALE 2024-07-07 15:02:46 54.53 Liters F BSA TOBIN 2024-07-07 15:02:46 2.31 sq m F TBW MILLER MALE 2024-07-07 15:02:46 54.53 Liters F BSA TOBIN 2024-07-07 15:02:46 2.31 sq m F BSA TOBIN 2024-07-07 15:02:46 2.31 sq m F TBW ANGELA MALE 2024-07-07 15:02:46 54.53 Liters F BSA TOBIN 2024-07-07 15:02:46 2.31 sq m F TBW ANGELA MALE 2024-07-07 15:02:46 54.53 Liters F Urea nitrogen [Mass/volume] in Serum or Plasma 2024-07-07 15:02:11 41 mg/dL F 9.0-23.0 Creatinine [Mass/volume] in Serum or Plasma 2024-07-07 15:02:11 9.68 mg/dL F 0.7-1.3 Creatinine [Mass/volume] in Serum or Plasma 2024-07-07 15:02:11 9.68 mg/dL F 0.7-1.3 Urea nitrogen [Mass/volume] in Serum or Plasma 2024-07-07 15:02:11 41 mg/dL F 9.0-23.0 Creatinine [Mass/volume] in Serum or Plasma 2024-07-07 15:02:11 9.68 mg/dL F 0.7-1.3 Urea nitrogen [Mass/volume] in Serum or Plasma 2024-07-07 15:02:11 41 mg/dL F 9.0-23.0 Urea nitrogen [Mass/volume] in Serum or Plasma 2024-07-07 15:02:11 41 mg/dL F 9.0-23.0 Creatinine [Mass/volume] in Serum or Plasma 2024-07-07 15:02:11 9.68 mg/dL F 0.7-1.3 BODY WEIGHT (LBS) 2024-07-05 16:25:42 260 lbs F AMPUTATE FACTOR 2024-07-05 16:25:42 0 F PATIENT AGE 2024-07-05 16:25:42 69 Years F HEIGHT IN INCHES 2024-07-05 16:25:42 69 Inches F AMPUTATE FACTOR 2024-07-05 16:25:42 0 F BODY WEIGHT (LBS) 2024-07-05 16:25:42 260 lbs F PATIENT AGE 2024-07-05 16:25:42 69 Years F HEIGHT IN INCHES 2024-07-05 16:25:42 69 Inches F PATIENT AGE 2024-07-05 16:25:42 69 Years F BODY WEIGHT (LBS) 2024-07-05 16:25:42 260 lbs F HEIGHT IN INCHES 2024-07-05 16:25:42 69 Inches F AMPUTATE FACTOR 2024-07-05 16:25:42 0 F PATIENT AGE 2024-07-05 16:25:42 69 Years F BODY WEIGHT (LBS) 2024-07-05 16:25:42 260 lbs F HEIGHT IN INCHES 2024-07-05 16:25:42 69 Inches F AMPUTATE FACTOR 2024-07-05 16:25:42 0 F MINIMUM GOAL: KT/V PD 2024-07-05 16:25:42 1.7 F MINIMUM GOAL: KT/V PD 2024-07-05 16:25:42 1.7 F MINIMUM GOAL: KT/V PD 2024-07-05 16:25:42 1.7 F MINIMUM GOAL: KT/V PD 2024-07-05 16:25:42 1.7 F COLLECTION TIME FOR URINE 2024-07-05 16:25:42 1440 min F TOTAL VOLUME-24 HR URINE 2024-07-05 16:25:42 150 mL F COLLECTION TIME FOR URINE 2024-07-05 16:25:42 1440 min F TOTAL VOLUME-24 HR URINE 2024-07-05 16:25:42 150 mL F COLLECTION TIME FOR URINE 2024-07-05 16:25:42 1440 min F TOTAL VOLUME-24 HR URINE 2024-07-05 16:25:42 150 mL F TOTAL VOLUME-24 HR URINE 2024-07-05 16:25:42 150 mL F COLLECTION TIME FOR URINE 2024-07-05 16:25:42 1440 min F KT/V TOTAL (M) 2024-06-25 14:07:56 1.69 Kt/V K L/WK PDF CC 2024-06-25 14:07:56 68.92 L/wk K KT/V PDF (M) 2024-06-25 14:07:56 1.53 Kt/V K L/WK/1.73 PDF 2024-06-25 14:07:56 51.41 L/WK/B K L/WK/1.73 TOTAL 2024-06-25 14:07:56 60.8 L/WK/B K KT/V PDF (M) 2024-06-25 14:07:56 1.53 Kt/V K L/WK/1.73 PDF 2024-06-25 14:07:56 51.41 L/WK/B K L/WK PDF CC 2024-06-25 14:07:56 68.92 L/wk K KT/V TOTAL (M) 2024-06-25 14:07:56 1.69 Kt/V K L/WK/1.73 TOTAL 2024-06-25 14:07:56 60.8 L/WK/B K L/WK PDF CC 2024-06-25 14:07:56 68.92 L/wk K L/WK/1.73 TOTAL 2024-06-25 14:07:56 60.8 L/WK/B K KT/V PDF (M) 2024-06-25 14:07:56 1.53 Kt/V K KT/V TOTAL (M) 2024-06-25 14:07:56 1.69 Kt/V K L/WK/1.73 PDF 2024-06-25 14:07:56 51.41 L/WK/B K L/WK/1.73 TOTAL 2024-06-25 14:07:56 60.8 L/WK/B K KT/V PDF (M) 2024-06-25 14:07:56 1.53 Kt/V K KT/V TOTAL (M) 2024-06-25 14:07:56 1.69 Kt/V K L/WK/1.73 PDF 2024-06-25 14:07:56 51.41 L/WK/B K L/WK PDF CC 2024-06-25 14:07:56 68.92 L/wk K PCR PD MALE 2024-06-25 14:07:56 47 g/day K PNA (PD) 2024-06-25 14:07:56 51.1 g/day K nPNA (PD MALE) 2024-06-25 14:07:56 0.54 G/KG/D K Urea Gen Rate 2024-06-25 14:07:56 7.1 GM/D K NPCR PD MALE 2024-06-25 14:07:56 0.5 G/KG/D K PNA (PD) 2024-06-25 14:07:56 51.1 g/day K NPCR PD MALE 2024-06-25 14:07:56 0.5 G/KG/D K PCR PD MALE 2024-06-25 14:07:56 47 g/day K nPNA (PD MALE) 2024-06-25 14:07:56 0.54 G/KG/D K Urea Gen Rate 2024-06-25 14:07:56 7.1 GM/D K NPCR PD MALE 2024-06-25 14:07:56 0.5 G/KG/D K PNA (PD) 2024-06-25 14:07:56 51.1 g/day K nPNA (PD MALE) 2024-06-25 14:07:56 0.54 G/KG/D K PCR PD MALE 2024-06-25 14:07:56 47 g/day K Urea Gen Rate 2024-06-25 14:07:56 7.1 GM/D K nPNA (PD MALE) 2024-06-25 14:07:56 0.54 G/KG/D K NPCR PD MALE 2024-06-25 14:07:56 0.5 G/KG/D K PCR PD MALE 2024-06-25 14:07:56 47 g/day K Urea Gen Rate 2024-06-25 14:07:56 7.1 GM/D K PNA (PD) 2024-06-25 14:07:56 51.1 g/day K Total Volume of EFFL/DIAL 2024-06-25 14:06:56 63018 mLs F Total Volume of EFFL/DIAL 2024-06-25 14:06:56 35693 mLs F Total Volume of EFFL/DIAL 2024-06-25 14:06:56 28359 mLs F Total Volume of EFFL/DIAL 2024-06-25 14:06:56 92434 mLs F KT/V RESID (M) 2024-06-25 12:42:19 0.16 Kt/V F L/WK/1.73 RESID 2024-06-25 12:42:19 9.39 L/WK/B F UREA CLR UR 2024-06-25 12:42:19 0.9 mL/min F L/WK RESID CC 2024-06-25 12:42:19 12.58 L/wk F BUN/CREAT 2024-06-25 12:42:19 4.5 Calc F 6.9-32.9 UREA CLR UR/BSA 2024-06-25 12:42:19 0.6 mL/min F 64.0-99.0 CRE CLR UR/BSA 2024-06-25 12:42:19 1 mL/min F 85.0-125.0 CRE CLR UR 2024-06-25 12:42:19 2 mL/min F 97.0-137.0 L/WK/1.73 RESID 2024-06-25 12:42:19 9.39 L/WK/B F KT/V RESID (M) 2024-06-25 12:42:19 0.16 Kt/V F L/WK RESID CC 2024-06-25 12:42:19 12.58 L/wk F UREA CLR UR/BSA 2024-06-25 12:42:19 0.6 mL/min F 64.0-99.0 BUN/CREAT 2024-06-25 12:42:19 4.5 Calc F 6.9-32.9 CRE CLR UR 2024-06-25 12:42:19 2 mL/min F 97.0-137.0 UREA CLR UR 2024-06-25 12:42:19 0.9 mL/min F CRE CLR UR/BSA 2024-06-25 12:42:19 1 mL/min F 85.0-125.0 BUN/CREAT 2024-06-25 12:42:19 4.5 Calc F 6.9-32.9 UREA CLR UR/BSA 2024-06-25 12:42:19 0.6 mL/min F 64.0-99.0 CRE CLR UR/BSA 2024-06-25 12:42:19 1 mL/min F 85.0-125.0 UREA CLR UR 2024-06-25 12:42:19 0.9 mL/min F L/WK/1.73 RESID 2024-06-25 12:42:19 9.39 L/WK/B F CRE CLR UR 2024-06-25 12:42:19 2 mL/min F 97.0-137.0 KT/V RESID (M) 2024-06-25 12:42:19 0.16 Kt/V F L/WK RESID CC 2024-06-25 12:42:19 12.58 L/wk F L/WK/1.73 RESID 2024-06-25 12:42:19 9.39 L/WK/B F BUN/CREAT 2024-06-25 12:42:19 4.5 Calc F 6.9-32.9 CRE CLR UR/BSA 2024-06-25 12:42:19 1 mL/min F 85.0-125.0 CRE CLR UR 2024-06-25 12:42:19 2 mL/min F 97.0-137.0 KT/V RESID (M) 2024-06-25 12:42:19 0.16 Kt/V F UREA CLR UR/BSA 2024-06-25 12:42:19 0.6 mL/min F 64.0-99.0 L/WK RESID CC 2024-06-25 12:42:19 12.58 L/wk F UREA CLR UR 2024-06-25 12:42:19 0.9 mL/min F Creatinine [Mass/volume] in Serum or Plasma 2024-06-25 12:41:16 8.08 mg/dL F 0.7-1.3 Urea nitrogen [Mass/volume] in Serum or Plasma 2024-06-25 12:41:16 36 mg/dL F 9.0-23.0 Creatinine [Mass/volume] in Serum or Plasma 2024-06-25 12:41:16 8.08 mg/dL F 0.7-1.3 Urea nitrogen [Mass/volume] in Serum or Plasma 2024-06-25 12:41:16 36 mg/dL F 9.0-23.0 Urea nitrogen [Mass/volume] in Serum or Plasma 2024-06-25 12:41:16 36 mg/dL F 9.0-23.0 Creatinine [Mass/volume] in Serum or Plasma 2024-06-25 12:41:16 8.08 mg/dL F 0.7-1.3 Creatinine [Mass/volume] in Serum or Plasma 2024-06-25 12:41:16 8.08 mg/dL F 0.7-1.3 Urea nitrogen [Mass/volume] in Serum or Plasma 2024-06-25 12:41:16 36 mg/dL F 9.0-23.0 Urea nitrogen [Mass/volume] in Urine 2024-06-25 01:41:23 178 mg/dL F Creatinine [Mass/volume] in Urine 2024-06-25 01:41:23 76.25 mg/dL F Creatinine [Mass/volume] in Urine 2024-06-25 01:41:23 76.25 mg/dL F Urea nitrogen [Mass/volume] in Urine 2024-06-25 01:41:23 178 mg/dL F Creatinine [Mass/volume] in Urine 2024-06-25 01:41:23 76.25 mg/dL F Urea nitrogen [Mass/volume] in Urine 2024-06-25 01:41:23 178 mg/dL F Creatinine [Mass/volume] in Urine 2024-06-25 01:41:23 76.25 mg/dL F Urea nitrogen [Mass/volume] in Urine 2024-06-25 01:41:23 178 mg/dL F Urea nitrogen [Mass/volume] in Peritoneal fluid --24 hours post peritoneal dialysis 2024-06-25 00:16:20 30 mg/dL F Creatinine [Mass/volume] in Peritoneal dialysis fluid 2024-06-25 00:16:20 5.52 mg/dL F Creatinine [Mass/volume] in Peritoneal dialysis fluid 2024-06-25 00:16:20 5.52 mg/dL F Urea nitrogen [Mass/volume] in Peritoneal fluid --24 hours post peritoneal dialysis 2024-06-25 00:16:20 30 mg/dL F Creatinine [Mass/volume] in Peritoneal dialysis fluid 2024-06-25 00:16:20 5.52 mg/dL F Urea nitrogen [Mass/volume] in Peritoneal fluid --24 hours post peritoneal dialysis 2024-06-25 00:16:20 30 mg/dL F Urea nitrogen [Mass/volume] in Peritoneal fluid --24 hours post peritoneal dialysis 2024-06-25 00:16:20 30 mg/dL F Creatinine [Mass/volume] in Peritoneal dialysis fluid 2024-06-25 00:16:20 5.52 mg/dL F TBW ANGELA MALE 2024-06-23 22:20:27 54.84 Liters F BSA TOBIN 2024-06-23 22:20:27 2.32 sq m F TBW ANGELA MALE 2024-06-23 22:20:27 54.84 Liters F BSA TOBIN 2024-06-23 22:20:27 2.32 sq m F BSA TOBIN 2024-06-23 22:20:27 2.32 sq m F TBW ANGELA MALE 2024-06-23 22:20:27 54.84 Liters F BSA TOBIN 2024-06-23 22:20:27 2.32 sq m F TBW ANGELA MALE 2024-06-23 22:20:27 54.84 Liters F PATIENT AGE 2024-06-22 20:58:45 69 Years F HEIGHT IN INCHES 2024-06-22 20:58:45 69 Inches F AMPUTATE FACTOR 2024-06-22 20:58:45 0 F BODY WEIGHT (LBS) 2024-06-22 20:58:45 262 lbs F PATIENT AGE 2024-06-22 20:58:45 69 Years F HEIGHT IN INCHES 2024-06-22 20:58:45 69 Inches F AMPUTATE FACTOR 2024-06-22 20:58:45 0 F BODY WEIGHT (LBS) 2024-06-22 20:58:45 262 lbs F PATIENT AGE 2024-06-22 20:58:45 69 Years F HEIGHT IN INCHES 2024-06-22 20:58:45 69 Inches F BODY WEIGHT (LBS) 2024-06-22 20:58:45 262 lbs F AMPUTATE FACTOR 2024-06-22 20:58:45 0 F PATIENT AGE 2024-06-22 20:58:45 69 Years F HEIGHT IN INCHES 2024-06-22 20:58:45 69 Inches F BODY WEIGHT (LBS) 2024-06-22 20:58:45 262 lbs F AMPUTATE FACTOR 2024-06-22 20:58:45 0 F MINIMUM GOAL: KT/V PD 2024-06-22 20:58:45 1.7 F MINIMUM GOAL: KT/V PD 2024-06-22 20:58:45 1.7 F MINIMUM GOAL: KT/V PD 2024-06-22 20:58:45 1.7 F MINIMUM GOAL: KT/V PD 2024-06-22 20:58:45 1.7 F COLLECTION TIME FOR URINE 2024-06-22 20:58:45 1440 min F TOTAL VOLUME-24 HR URINE 2024-06-22 20:58:45 250 mL F COLLECTION TIME FOR URINE 2024-06-22 20:58:45 1440 min F TOTAL VOLUME-24 HR URINE 2024-06-22 20:58:45 250 mL F TOTAL VOLUME-24 HR URINE 2024-06-22 20:58:45 250 mL F COLLECTION TIME FOR URINE 2024-06-22 20:58:45 1440 min F COLLECTION TIME FOR URINE 2024-06-22 20:58:45 1440 min F TOTAL VOLUME-24 HR URINE 2024-06-22 20:58:45 250 mL F HEIGHT IN INCHES 2024-05-28 16:42:49 69 Inches F AMPUTATE FACTOR 2024-05-28 16:42:49 0 F PATIENT AGE 2024-05-28 16:42:49 69 Years F AMPUTATE FACTOR 2024-05-28 16:42:49 0 F HEIGHT IN INCHES 2024-05-28 16:42:49 69 Inches F PATIENT AGE 2024-05-28 16:42:49 69 Years F PATIENT AGE 2024-05-28 16:42:49 69 Years F AMPUTATE FACTOR 2024-05-28 16:42:49 0 F HEIGHT IN INCHES 2024-05-28 16:42:49 69 Inches F PATIENT AGE 2024-05-28 16:42:49 69 Years F HEIGHT IN INCHES 2024-05-28 16:42:49 69 Inches F AMPUTATE FACTOR 2024-05-28 16:42:49 0 F PATIENT AGE 2024-05-28 16:42:49 69 Years F HEIGHT IN INCHES 2024-05-28 16:42:49 69 Inches F AMPUTATE FACTOR 2024-05-28 16:42:49 0 F MINIMUM GOAL: KT/V PD 2024-05-28 16:42:49 1.7 F MINIMUM GOAL: KT/V PD 2024-05-28 16:42:49 1.7 F MINIMUM GOAL: KT/V PD 2024-05-28 16:42:49 1.7 F MINIMUM GOAL: KT/V PD 2024-05-28 16:42:49 1.7 F MINIMUM GOAL: KT/V PD 2024-05-28 16:42:49 1.7 F COLLECTION TIME FOR URINE 2024-05-28 16:42:49 1440 min F COLLECTION TIME FOR URINE 2024-05-28 16:42:49 1440 min F COLLECTION TIME FOR URINE 2024-05-28 16:42:49 1440 min F COLLECTION TIME FOR URINE 2024-05-28 16:42:49 1440 min F COLLECTION TIME FOR URINE 2024-05-28 16:42:49 1440 min F BODY WEIGHT (LBS) 2024-05-28 16:42:48 259.6 lbs F BODY WEIGHT (LBS) 2024-05-28 16:42:48 259.6 lbs F BODY WEIGHT (LBS) 2024-05-28 16:42:48 259.6 lbs F BODY WEIGHT (LBS) 2024-05-28 16:42:48 259.6 lbs F BODY WEIGHT (LBS) 2024-05-28 16:42:48 259.6 lbs F Total Volume of EFFL/DIAL 2024-05-28 16:42:48 95984 mLs F Total Volume of EFFL/DIAL 2024-05-28 16:42:48 84294 mLs F Total Volume of EFFL/DIAL 2024-05-28 16:42:48 81599 mLs F Total Volume of EFFL/DIAL 2024-05-28 16:42:48 75503 mLs F Total Volume of EFFL/DIAL 2024-05-28 16:42:48 38015 mLs F TOTAL VOLUME-24 HR URINE 2024-05-28 16:42:48 50 mL F TOTAL VOLUME-24 HR URINE 2024-05-28 16:42:48 50 mL F TOTAL VOLUME-24 HR URINE 2024-05-28 16:42:48 50 mL F TOTAL VOLUME-24 HR URINE 2024-05-28 16:42:48 50 mL F TOTAL VOLUME-24 HR URINE 2024-05-28 16:42:48 50 mL F BUN/CREAT 2024-04-28 14:31:26 4.3 Calc F 6.9-32.9 BUN/CREAT 2024-04-28 14:31:26 4.3 Calc F 6.9-32.9 Creatinine [Mass/volume] in Serum or Plasma 2024-04-28 14:30:26 8.9 mg/dL F 0.7-1.3 Urea nitrogen [Mass/volume] in Serum or Plasma 2024-04-28 14:30:26 38 mg/dL F 9.0-23.0 Creatinine [Mass/volume] in Serum or Plasma 2024-04-28 14:30:26 8.9 mg/dL F 0.7-1.3 Urea nitrogen [Mass/volume] in Serum or Plasma 2024-04-28 14:30:26 38 mg/dL F 9.0-23.0 BUN/CREAT 2024-03-26 01:27:06 4.9 Calc F 6.9-32.9 Creatinine [Mass/volume] in Serum or Plasma 2024-03-26 01:26:18 9.14 mg/dL F 0.7-1.3 Urea nitrogen [Mass/volume] in Serum or Plasma 2024-03-26 01:26:18 45 mg/dL F 9.0-23.0 KT/V TOTAL (M) 2024-03-07 01:53:27 1.71 Kt/V F UREA CLR UR 2024-03-07 01:53:27 0.3 mL/min F L/WK RESID CC 2024-03-07 01:53:27 6.06 L/wk F L/WK/1.73 TOTAL 2024-03-07 01:53:27 61.24 L/WK/B F KT/V RESID (M) 2024-03-07 01:53:27 0.05 Kt/V F L/WK/1.73 RESID 2024-03-07 01:53:27 4.51 L/WK/B F UREA CLR UR/BSA 2024-03-07 01:53:27 0.2 mL/min F 64.0-99.0 CRE CLR UR/BSA 2024-03-07 01:53:27 1 mL/min F 85.0-125.0 CRE CLR UR 2024-03-07 01:53:27 1 mL/min F 97.0-137.0 UREA CLR UR 2024-03-07 01:53:27 0.3 mL/min F KT/V TOTAL (M) 2024-03-07 01:53:27 1.71 Kt/V F L/WK RESID CC 2024-03-07 01:53:27 6.06 L/wk F KT/V RESID (M) 2024-03-07 01:53:27 0.05 Kt/V F L/WK/1.73 TOTAL 2024-03-07 01:53:27 61.24 L/WK/B F L/WK/1.73 RESID 2024-03-07 01:53:27 4.51 L/WK/B F UREA CLR UR/BSA 2024-03-07 01:53:27 0.2 mL/min F 64.0-99.0 CRE CLR UR/BSA 2024-03-07 01:53:27 1 mL/min F 85.0-125.0 CRE CLR UR 2024-03-07 01:53:27 1 mL/min F 97.0-137.0 PNA (PD) 2024-03-07 01:53:27 61.6 g/day F nPNA (PD MALE) 2024-03-07 01:53:27 0.65 G/KG/D F Urea Gen Rate 2024-03-07 01:53:27 9.2 GM/D F NPCR PD MALE 2024-03-07 01:53:27 0.59 G/KG/D F PCR PD MALE 2024-03-07 01:53:27 56 g/day F nPNA (PD MALE) 2024-03-07 01:53:27 0.65 G/KG/D F PNA (PD) 2024-03-07 01:53:27 61.6 g/day F NPCR PD MALE 2024-03-07 01:53:27 0.59 G/KG/D F Urea Gen Rate 2024-03-07 01:53:27 9.2 GM/D F PCR PD MALE 2024-03-07 01:53:27 56 g/day F Urea nitrogen [Mass/volume] in Urine 2024-03-07 01:52:24 199 mg/dL F Creatinine [Mass/volume] in Urine 2024-03-07 01:52:24 105.72 mg/dL F Creatinine [Mass/volume] in Urine 2024-03-07 01:52:24 105.72 mg/dL F Urea nitrogen [Mass/volume] in Urine 2024-03-07 01:52:24 199 mg/dL F KT/V PDF () 2024-03-07 01:47:05 1.65 Kt/V F L/WK/1.73 PDF 2024-03-07 01:47:05 56.74 L/WK/B F L/WK [facility] 2024-03-07 01:47:05 76.3 L/wk F KT/V [facility] () 2024-03-07 01:47:05 1.65 Kt/V F L/WK [facility] 2024-03-07 01:47:05 76.3 L/wk F L/WK/1.73 [facility] 2024-03-07 01:47:05 56.74 L/WK/B F Creatinine [Mass/volume] [...] BUN/CREAT 2024-03-06 23:36:12 5.7 Calc F 6.9-32.9 Creatinine [Mass/volume] in Serum or Plasma 2024-03-06 23:33:23 8.14 mg/dL F 0.7-1.3 Urea nitrogen [Mass/volume] in Serum or Plasma 2024-03-06 23:33:23 46 mg/dL F 9.0-23.0 Creatinine [Mass/volume] in Serum or Plasma 2024-03-06 23:33:23 8.14 mg/dL F 0.7-1.3 Urea nitrogen [Mass/volume] in Serum or Plasma 2024-03-06 23:33:23 46 mg/dL F 9.0-23.0 BSA TOBIN 2024-03-06 20:46:08 2.33 sq m F TBW ANGELA MALE 2024-03-06 20:46:08 55.14 Liters F BSA TOBIN 2024-03-06 20:46:08 2.33 sq m F TBW ANGELA MALE 2024-03-06 20:46:08 55.14 Liters F HEIGHT IN INCHES 2024-03-05 18:52:37 69 Inches F PATIENT AGE 2024-03-05 18:52:37 69 Years F AMPUTATE FACTOR 2024-03-05 18:52:37 0 F BODY WEIGHT (LBS) 2024-03-05 18:52:37 264 lbs F BODY WEIGHT (LBS) 2024-03-05 18:52:37 264 lbs F HEIGHT IN INCHES 2024-03-05 18:52:37 69 Inches F PATIENT AGE 2024-03-05 18:52:37 69 Years F AMPUTATE FACTOR 2024-03-05 18:52:37 0 F MINIMUM GOAL: KT/V PD 2024-03-05 18:52:37 1.7 F Total Volume of EFFL/DIAL 2024-03-05 18:52:37 70820 mLs F Total Volume of EFFL/DIAL 2024-03-05 18:52:37 19722 mLs F MINIMUM GOAL: KT/V PD 2024-03-05 18:52:37 1.7 F COLLECTION TIME FOR URINE 2024-03-05 18:52:37 1440 min F TOTAL VOLUME-24 HR URINE 2024-03-05 18:52:37 100 mL F COLLECTION TIME FOR URINE 2024-03-05 18:52:37 1440 min F TOTAL VOLUME-24 HR URINE 2024-03-05 18:52:37 100 mL F BUN/CREAT 2024-01-28 19:22:27 5.6 Calc F 6.9-32.9 Creatinine [Mass/volume] in Serum or Plasma 2024-01-28 19:12:24 8.68 mg/dL F 0.7-1.3 Urea nitrogen [Mass/volume] in Serum or Plasma 2024-01-28 19:12:24 49 mg/dL F 9.0-23.0 BUN/CREAT 2023-12-31 23:36:38 6.1 Calc F 6.9-32.9 BUN/CREAT 2023-12-31 23:36:38 6.1 Calc F 6.9-32.9 Creatinine [Mass/volume] in Serum or Plasma 2023-12-31 23:35:20 9.44 mg/dL F 0.7-1.3 Urea nitrogen [Mass/volume] in Serum or Plasma 2023-12-31 23:35:20 58 mg/dL F 9.0-23.0 Creatinine [Mass/volume] in Serum or Plasma 2023-12-31 23:35:20 9.44 mg/dL F 0.7-1.3 Urea nitrogen [Mass/volume] in Serum or Plasma 2023-12-31 23:35:20 58 mg/dL F 9.0-23.0 L/WK/1.73 TOTAL 2023-11-20 00:49:18 56.36 L/WK/B F KT/V TOTAL (M) 2023-11-20 00:49:18 1.55 Kt/V F L/WK/1.73 RESID 2023-11-20 00:49:18 7.48 L/WK/B F L/WK/1.73 PDF 2023-11-20 00:49:18 48.88 L/WK/B F BUN/CREAT 2023-11-20 00:49:18 6.2 Calc F 6.9-32.9 UREA CLR UR/BSA 2023-11-20 00:49:18 0.4 mL/min F 64.0-99.0 CRE CLR UR/BSA 2023-11-20 00:49:18 1 mL/min F 85.0-125.0 L/WK RESID CC 2023-11-20 00:49:18 10.09 L/wk F L/WK PDF CC 2023-11-20 00:49:18 65.94 L/wk F KT/V PDF (M) 2023-11-20 00:49:18 1.44 Kt/V F KT/V RESID (M) 2023-11-20 00:49:18 0.11 Kt/V F UREA CLR UR 2023-11-20 00:49:18 0.6 mL/min F CRE CLR UR 2023-11-20 00:49:18 1 mL/min F 97.0-137.0 L/WK/1.73 TOTAL 2023-11-20 00:49:18 56.36 L/WK/B F UREA CLR UR 2023-11-20 00:49:18 0.6 mL/min F KT/V RESID (M) 2023-11-20 00:49:18 0.11 Kt/V F L/WK RESID CC 2023-11-20 00:49:18 10.09 L/wk F KT/V PDF (M) 2023-11-20 00:49:18 1.44 Kt/V F KT/V TOTAL (M) 2023-11-20 00:49:18 1.55 Kt/V F L/WK PDF CC 2023-11-20 00:49:18 65.94 L/wk F L/WK/1.73 PDF 2023-11-20 00:49:18 48.88 L/WK/B F L/WK/1.73 RESID 2023-11-20 00:49:18 7.48 L/WK/B F BUN/CREAT 2023-11-20 00:49:18 6.2 Calc F 6.9-32.9 UREA CLR UR/BSA 2023-11-20 00:49:18 0.4 mL/min F 64.0-99.0 CRE CLR UR/BSA 2023-11-20 00:49:18 1 mL/min F 85.0-125.0 CRE CLR UR 2023-11-20 00:49:18 1 mL/min F 97.0-137.0 L/WK PDF CC 2023-11-20 00:49:18 65.94 L/wk F UREA CLR UR 2023-11-20 00:49:18 0.6 mL/min F L/WK/1.73 TOTAL 2023-11-20 00:49:18 56.36 L/WK/B F L/WK RESID CC 2023-11-20 00:49:18 10.09 L/wk F KT/V PDF (M) 2023-11-20 00:49:18 1.44 Kt/V F KT/V TOTAL (M) 2023-11-20 00:49:18 1.55 Kt/V F KT/V RESID (M) 2023-11-20 00:49:18 0.11 Kt/V F L/WK/1.73 PDF 2023-11-20 00:49:18 48.88 L/WK/B F L/WK/1.73 RESID 2023-11-20 00:49:18 7.48 L/WK/B F BUN/CREAT 2023-11-20 00:49:18 6.2 Calc F 6.9-32.9 UREA CLR UR/BSA 2023-11-20 00:49:18 0.4 mL/min F 64.0-99.0 CRE CLR UR/BSA 2023-11-20 00:49:18 1 mL/min F 85.0-125.0 CRE CLR UR 2023-11-20 00:49:18 1 mL/min F 97.0-137.0 Creatinine [Mass/volume] in Serum or Plasma 2023-11-20 00:49:13 8.42 mg/dL F 0.7-1.3 Urea nitrogen [Mass/volume] in Serum or Plasma 2023-11-20 00:49:13 52 mg/dL F 9.0-23.0 Creatinine [Mass/volume] in Serum or Plasma 2023-11-20 00:49:13 8.42 mg/dL F 0.7-1.3 Urea nitrogen [Mass/volume] in Serum or Plasma 2023-11-20 00:49:13 52 mg/dL F 9.0-23.0 Creatinine [Mass/volume] in Serum or Plasma 2023-11-20 00:49:13 8.42 mg/dL F 0.7-1.3 Urea nitrogen [Mass/volume] in Serum or Plasma 2023-11-20 00:49:13 52 mg/dL F 9.0-23.0 PNA (PD) 2023-11-19 22:15:23 63.3 g/day F PCR PD MALE 2023-11-19 22:15:23 58 g/day F nPNA (PD MALE) 2023-11-19 22:15:23 0.66 G/KG/D F Urea Gen Rate 2023-11-19 22:15:23 9.5 GM/D F NPCR PD MALE 2023-11-19 22:15:23 0.6 G/KG/D F nPNA (PD MALE) 2023-11-19 22:15:23 0.66 G/KG/D F PNA (PD) 2023-11-19 22:15:23 63.3 g/day F NPCR PD MALE 2023-11-19 22:15:23 0.6 G/KG/D F PCR PD MALE 2023-11-19 22:15:23 58 g/day F Urea Gen Rate 2023-11-19 22:15:23 9.5 GM/D F PNA (PD) 2023-11-19 22:15:23 63.3 g/day F nPNA (PD MALE) 2023-11-19 22:15:23 0.66 G/KG/D F NPCR PD MALE 2023-11-19 22:15:23 0.6 G/KG/D F PCR PD MALE 2023-11-19 22:15:23 58 g/day F Urea Gen Rate 2023-11-19 22:15:23 9.5 GM/D F Creatinine [Mass/volume] in Urine 2023-11-19 22:15:18 113.2 mg/dL F Urea nitrogen [Mass/volume] in Urine 2023-11-19 22:15:18 300 mg/dL F Urea nitrogen [Mass/volume] in Urine 2023-11-19 22:15:18 300 mg/dL F Creatinine [Mass/volume] in Urine 2023-11-19 22:15:18 113.2 mg/dL F Creatinine [Mass/volume] in Urine 2023-11-19 22:15:18 113.2 mg/dL F Urea nitrogen [Mass/volume] in Urine 2023-11-19 22:15:18 300 mg/dL F BSA TOBIN 2023-11-19 18:51:17 2.33 sq m F TBW ANGELA MALE 2023-11-19 18:51:17 55.54 Liters F TBW ANGELA MALE 2023-11-19 18:51:17 55.54 Liters F BSA TOBIN 2023-11-19 18:51:17 2.33 sq m F TBW ANGELA MALE 2023-11-19 18:51:17 55.54 Liters F BSA TOBIN 2023-11-19 18:51:17 2.33 sq m F Creatinine [Mass/volume] in Peritoneal dialysis fluid 2023-11-19 18:51:12 5.59 mg/dL F Urea nitrogen [Mass/volume] in Peritoneal fluid --24 hours post peritoneal dialysis 2023-11-19 18:51:12 42 mg/dL F Creatinine [Mass/volume] in Peritoneal dialysis fluid 2023-11-19 18:51:12 5.59 mg/dL F Urea nitrogen [Mass/volume] in Peritoneal fluid --24 hours post peritoneal dialysis 2023-11-19 18:51:12 42 mg/dL F Creatinine [Mass/volume] in Peritoneal dialysis fluid 2023-11-19 18:51:12 5.59 mg/dL F Urea nitrogen [Mass/volume] in Peritoneal fluid --24 hours post peritoneal dialysis 2023-11-19 18:51:12 42 mg/dL F PATIENT AGE 2023-11-18 19:59:06 68 Years F BODY WEIGHT (LBS) 2023-11-18 19:59:06 266 lbs F HEIGHT IN INCHES 2023-11-18 19:59:06 69 Inches F AMPUTATE FACTOR 2023-11-18 19:59:06 0 F HEIGHT IN INCHES 2023-11-18 19:59:06 69 Inches F BODY WEIGHT (LBS) 2023-11-18 19:59:06 266 lbs F AMPUTATE FACTOR 2023-11-18 19:59:06 0 F PATIENT AGE 2023-11-18 19:59:06 68 Years F HEIGHT IN INCHES 2023-11-18 19:59:06 69 Inches F AMPUTATE FACTOR 2023-11-18 19:59:06 0 F BODY WEIGHT (LBS) 2023-11-18 19:59:06 266 lbs F PATIENT AGE 2023-11-18 19:59:06 68 Years F MINIMUM GOAL: KT/V PD 2023-11-18 19:59:06 1.7 F Total Volume of EFFL/DIAL 2023-11-18 19:59:06 95779 mLs F Total Volume of EFFL/DIAL 2023-11-18 19:59:06 25490 mLs F MINIMUM GOAL: KT/V PD 2023-11-18 19:59:06 1.7 F Total Volume of EFFL/DIAL 2023-11-18 19:59:06 47382 mLs F MINIMUM GOAL: KT/V PD 2023-11-18 19:59:06 1.7 F COLLECTION TIME FOR URINE 2023-11-18 19:59:06 1440 min F TOTAL VOLUME-24 HR URINE 2023-11-18 19:59:06 150 mL F TOTAL VOLUME-24 HR URINE 2023-11-18 19:59:06 150 mL F COLLECTION TIME FOR URINE 2023-11-18 19:59:06 1440 min F COLLECTION TIME FOR URINE 2023-11-18 19:59:06 1440 min F TOTAL VOLUME-24 HR URINE 2023-11-18 19:59:06 150 mL F BUN/CREAT 2023-10-23 16:48:45 6.1 Calc F 6.9-32.9 BUN/CREAT 2023-10-23 16:48:45 6.1 Calc F 6.9-32.9 Creatinine [Mass/volume] in Serum or Plasma 2023-10-23 [...] BUN/CREAT 2023-09-26 07:18:00 4.8 Calc F 6.9-32.9 Creatinine [Mass/volume] in Serum or Plasma 2023-09-25 13:43:37 7.72 mg/dL F 0.7-1.3 Urea nitrogen [Mass/volume] in Serum or Plasma 2023-09-25 13:43:37 37 mg/dL F 9.0-23.0 Creatinine [Mass/volume] in Serum or Plasma 2023-09-25 13:43:37 7.72 mg/dL F 0.7-1.3 Urea nitrogen [Mass/volume] in Serum or Plasma 2023-09-25 13:43:37 37 mg/dL F 9.0-23.0 KT/V TOTAL () 2023-08-26 21:26:12 1.75 Kt/V F L/WK/1.73 TOTAL 2023-08-26 21:26:12 60.87 L/WK/B F L/WK/1.73 PDF 2023-08-26 21:26:12 48.51 L/WK/B F L/WK PDF 2023-08-26 21:26:12 62.09 L/wk F KT/V PDF () 2023-08-26 21:26:12 1.54 Kt/V F KT/V TOTAL () 2023-08-26 21:26:12 1.75 Kt/V F L/WK/1.73 PDF 2023-08-26 21:26:12 48.51 L/WK/B F L/WK [facility] 2023-08-26 21:26:12 62.09 L/wk F KT/V PDF () 2023-08-26 21:26:12 1.54 Kt/V F L/WK/1.73 TOTAL 2023-08-26 21:26:12 60.87 L/WK/B F KT/V TOTAL () 2023-08-26 21:26:12 1.75 Kt/V F KT/V PDF () 2023-08-26 21:26:12 1.54 Kt/V F L/WK/1.73 TOTAL 2023-08-26 21:26:12 60.87 L/WK/B F L/WK PDF 2023-08-26 21:26:12 62.09 L/wk F L/WK/1.73 PDF 2023-08-26 21:26:12 48.51 L/WK/B F KT/V TOTAL (M) 2023-08-26 21:26:12 1.75 Kt/V F L/WK/1.73 PDF 2023-08-26 21:26:12 48.51 L/WK/B F L/WK/1.73 TOTAL 2023-08-26 21:26:12 60.87 L/WK/B F KT/V PDF (M) 2023-08-26 21:26:12 1.54 Kt/V F L/WK PDF CC 2023-08-26 21:26:12 62.09 L/wk F PCR PD MALE 2023-08-26 21:26:12 67 g/day F nPNA (PD MALE) 2023-08-26 21:26:12 0.86 G/KG/D F Urea Gen Rate 2023-08-26 21:26:12 11.9 GM/D F NPCR PD MALE 2023-08-26 21:26:12 0.76 G/KG/D F PNA (PD) 2023-08-26 21:26:12 75.2 g/day F Urea Gen Rate 2023-08-26 21:26:12 11.9 GM/D F PCR PD MALE 2023-08-26 21:26:12 67 g/day F PNA (PD) 2023-08-26 21:26:12 75.2 g/day F nPNA (PD MALE) 2023-08-26 21:26:12 0.86 G/KG/D F NPCR PD MALE 2023-08-26 21:26:12 0.76 G/KG/D F PCR PD MALE 2023-08-26 21:26:12 67 g/day F nPNA (PD MALE) 2023-08-26 21:26:12 0.86 G/KG/D F Urea Gen Rate 2023-08-26 21:26:12 11.9 GM/D F PNA (PD) 2023-08-26 21:26:12 75.2 g/day F NPCR PD MALE 2023-08-26 21:26:12 0.76 G/KG/D F PCR PD MALE 2023-08-26 21:26:12 67 g/day F PNA (PD) 2023-08-26 21:26:12 75.2 g/day F nPNA (PD MALE) 2023-08-26 21:26:12 0.86 G/KG/D F Urea Gen Rate 2023-08-26 21:26:12 11.9 GM/D F NPCR PD MALE 2023-08-26 21:26:12 0.76 G/KG/D F Urea nitrogen [Mass/volume] in Peritoneal fluid --24 hours post peritoneal dialysis 2023-08-26 21:25:34 47 mg/dL F Creatinine [Mass/volume] in Peritoneal dialysis fluid 2023-08-26 21:25:34 4.4 mg/dL F Creatinine [Mass/volume] in Peritoneal dialysis fluid 2023-08-26 21:25:34 4.4 mg/dL F Urea nitrogen [Mass/volume] in Peritoneal fluid --24 hours post peritoneal dialysis 2023-08-26 21:25:34 47 mg/dL F Creatinine [Mass/volume] in Peritoneal dialysis fluid 2023-08-26 21:25:34 4.4 mg/dL F Urea nitrogen [Mass/volume] in Peritoneal fluid --24 hours post peritoneal dialysis 2023-08-26 21:25:34 47 mg/dL F Creatinine [Mass/volume] in Peritoneal dialysis fluid 2023-08-26 21:25:34 4.4 mg/dL F Urea nitrogen [Mass/volume] in Peritoneal fluid --24 hours post peritoneal dialysis 2023-08-26 21:25:34 47 mg/dL F UREA CLR UR 2023-08-26 18:51:54 1.1 mL/min F KT/V RESID (M) 2023-08-26 18:51:54 0.22 Kt/V F L/WK/1.73 RESID 2023-08-26 18:51:54 12.36 L/WK/B F L/WK RESID CC 2023-08-26 18:51:54 15.81 L/wk F BUN/CREAT 2023-08-26 18:51:54 8.5 Calc F 6.9-32.9 UREA CLR UR/BSA 2023-08-26 18:51:54 0.9 mL/min F 64.0-99.0 CRE CLR UR/BSA 2023-08-26 18:51:54 2 mL/min F 85.0-125.0 CRE CLR UR 2023-08-26 18:51:54 2 mL/min F 97.0-137.0 UREA CLR UR 2023-08-26 18:51:54 1.1 mL/min F KT/V RESID (M) 2023-08-26 18:51:54 0.22 Kt/V F BUN/CREAT 2023-08-26 18:51:54 8.5 Calc F 6.9-32.9 CRE CLR UR/BSA 2023-08-26 18:51:54 2 mL/min F 85.0-125.0 CRE CLR UR 2023-08-26 18:51:54 2 mL/min F 97.0-137.0 L/WK RESID CC 2023-08-26 18:51:54 15.81 L/wk F L/WK/1.73 RESID 2023-08-26 18:51:54 12.36 L/WK/B F UREA CLR UR/BSA 2023-08-26 18:51:54 0.9 mL/min F 64.0-99.0 UREA CLR UR 2023-08-26 18:51:54 1.1 mL/min F L/WK/1.73 RESID 2023-08-26 18:51:54 12.36 L/WK/B F L/WK RESID CC 2023-08-26 18:51:54 15.81 L/wk F KT/V RESID () 2023-08-26 18:51:54 0.22 Kt/V F BUN/CREAT 2023-08-26 18:51:54 8.5 Calc F 6.9-32.9 UREA CLR UR/BSA 2023-08-26 18:51:54 0.9 mL/min F 64.0-99.0 CRE CLR UR 2023-08-26 18:51:54 2 mL/min F 97.0-137.0 CRE CLR UR/BSA 2023-08-26 18:51:54 2 mL/min F 85.0-125.0 L/WK RESID CC 2023-08-26 18:51:54 15.81 L/wk F UREA CLR UR 2023-08-26 18:51:54 1.1 mL/min F KT/V RESID (M) 2023-08-26 18:51:54 0.22 Kt/V F L/WK/1.73 RESID 2023-08-26 18:51:54 12.36 L/WK/B F BUN/CREAT 2023-08-26 18:51:54 8.5 Calc F 6.9-32.9 UREA CLR UR/BSA 2023-08-26 18:51:54 0.9 mL/min F 64.0-99.0 CRE CLR UR/BSA 2023-08-26 18:51:54 2 mL/min F 85.0-125.0 CRE CLR UR 2023-08-26 18:51:54 2 mL/min F 97.0-137.0 Creatinine [Mass/volume] in Serum or Plasma 2023-08-26 18:51:36 7.41 mg/dL F 0.7-1.3 Urea nitrogen [Mass/volume] in Serum or Plasma 2023-08-26 18:51:36 63 mg/dL F 9.0-23.0 Creatinine [Mass/volume] in Serum or Plasma 2023-08-26 18:51:36 7.41 mg/dL F 0.7-1.3 Urea nitrogen [Mass/volume] in Serum or Plasma 2023-08-26 18:51:36 63 mg/dL F 9.0-23.0 Creatinine [Mass/volume] in Serum or Plasma 2023-08-26 18:51:36 7.41 mg/dL F 0.7-1.3 Urea nitrogen [Mass/volume] in Serum or Plasma 2023-08-26 18:51:36 63 mg/dL F 9.0-23.0 Creatinine [Mass/volume] in Serum or Plasma 2023-08-26 18:51:36 7.41 mg/dL F 0.7-1.3 Urea nitrogen [Mass/volume] in Serum or Plasma 2023-08-26 18:51:36 63 mg/dL F 9.0-23.0 BSA TOIBN 2023-08-26 15:39:52 2.21 sq m F TBW ANGELA MALE 2023-08-26 15:39:52 50.81 Liters F BSA TOBIN 2023-08-26 15:39:52 2.21 sq m F TBW ANGELA MALE 2023-08-26 15:39:52 50.81 Liters F BSA TOBIN 2023-08-26 15:39:52 2.21 sq m F TBW ANGELA MALE 2023-08-26 15:39:52 50.81 Liters F TBW ANGELA MALE 2023-08-26 15:39:52 50.81 Liters F BSA TOBIN 2023-08-26 15:39:52 2.21 sq m F Creatinine [Mass/volume] in Urine 2023-08-26 15:39:30 62.25 mg/dL F Urea nitrogen [Mass/volume] in Urine 2023-08-26 15:39:30 284 mg/dL F Creatinine [Mass/volume] in Urine 2023-08-26 15:39:30 62.25 mg/dL F Urea nitrogen [Mass/volume] in Urine 2023-08-26 15:39:30 284 mg/dL F Creatinine [Mass/volume] in Urine 2023-08-26 15:39:30 62.25 mg/dL F Urea nitrogen [Mass/volume] in Urine 2023-08-26 15:39:30 284 mg/dL F Creatinine [Mass/volume] in Urine 2023-08-26 15:39:30 62.25 mg/dL F Urea nitrogen [Mass/volume] in Urine 2023-08-26 15:39:30 284 mg/dL F PATIENT AGE 2023-08-25 20:18:50 68 Years F HEIGHT IN INCHES 2023-08-25 20:18:50 69 Inches F AMPUTATE FACTOR 2023-08-25 20:18:50 0 F BODY WEIGHT (LBS) 2023-08-25 20:18:50 235 lbs F PATIENT AGE 2023-08-25 20:18:50 68 Years F AMPUTATE FACTOR 2023-08-25 20:18:50 0 F BODY WEIGHT (LBS) 2023-08-25 20:18:50 235 lbs F HEIGHT IN INCHES 2023-08-25 20:18:50 69 Inches F PATIENT AGE 2023-08-25 20:18:50 68 Years F AMPUTATE FACTOR 2023-08-25 20:18:50 0 F HEIGHT IN INCHES 2023-08-25 20:18:50 69 Inches F BODY WEIGHT (LBS) 2023-08-25 20:18:50 235 lbs F PATIENT AGE 2023-08-25 20:18:50 68 Years F HEIGHT IN INCHES 2023-08-25 20:18:50 69 Inches F BODY WEIGHT (LBS) 2023-08-25 20:18:50 235 lbs F AMPUTATE FACTOR 2023-08-25 20:18:50 0 F MINIMUM GOAL: KT/V PD 2023-08-25 20:18:50 1.7 F Total Volume of EFFL/DIAL 2023-08-25 20:18:50 56518 mLs F Total Volume of EFFL/DIAL 2023-08-25 20:18:50 40429 mLs F MINIMUM GOAL: KT/V PD 2023-08-25 20:18:50 1.7 F MINIMUM GOAL: KT/V PD 2023-08-25 20:18:50 1.7 F Total Volume of EFFL/DIAL 2023-08-25 20:18:50 59051 mLs F Total Volume of EFFL/DIAL 2023-08-25 20:18:50 19147 mLs F MINIMUM GOAL: KT/V PD 2023-08-25 20:18:50 1.7 F COLLECTION TIME FOR URINE 2023-08-25 20:18:50 1440 min F TOTAL VOLUME-24 HR URINE 2023-08-25 20:18:50 350 mL F COLLECTION TIME FOR URINE 2023-08-25 20:18:50 1440 min F TOTAL VOLUME-24 HR URINE 2023-08-25 20:18:50 350 mL F COLLECTION TIME FOR URINE 2023-08-25 20:18:50 1440 min F TOTAL VOLUME-24 HR URINE 2023-08-25 20:18:50 350 mL F COLLECTION TIME FOR URINE 2023-08-25 20:18:50 1440 min F TOTAL VOLUME-24 HR URINE 2023-08-25 20:18:50 350 mL F BUN/CREAT 2023-07-24 17:40:31 5.6 Calc F 6.9-32.9 BUN/CREAT 2023-07-24 17:40:31 5.6 Calc F 6.9-32.9 Creatinine [Mass/volume] in Serum or Plasma 2023-07-24 17:39:41 8.59 mg/dL F 0.7-1.3 Urea nitrogen [Mass/volume] in Serum or Plasma 2023-07-24 17:39:41 48 mg/dL F 9.0-23.0 Creatinine [Mass/volume] in Serum or Plasma 2023-07-24 [...] Plasma 2023-06-28 15:38:38 36 mg/dL F 9.0-23.0 KT/V PDF () 2023-05-24 01:22:42 1.41 Kt/V F KT/V RESID () 2023-05-24 01:22:42 0.19 Kt/V F L/WK/1.73 PDF 2023-05-24 01:22:42 42.33 L/WK/B F L/WK/1.73 RESID 2023-05-24 01:22:42 10.3 L/WK/B F L/WK PDF CC 2023-05-24 01:22:42 54.08 L/wk F L/WK/1.73 TOTAL 2023-05-24 01:22:42 52.64 L/WK/B F L/WK RESID CC 2023-05-24 01:22:42 13.17 L/wk F KT/V TOTAL (M) 2023-05-24 01:22:42 1.6 Kt/V F UREA CLR UR 2023-05-24 01:22:42 0.9 mL/min F BUN/CREAT 2023-05-24 01:22:42 5 Calc F 6.9-32.9 UREA CLR UR/BSA 2023-05-24 01:22:42 0.7 mL/min F 64.0-99.0 CRE CLR UR/BSA 2023-05-24 01:22:42 1 mL/min F 85.0-125.0 CRE CLR UR 2023-05-24 01:22:42 2 mL/min F 97.0-137.0 KT/V PDF (M) 2023-05-24 01:22:42 1.41 Kt/V F KT/V RESID (M) 2023-05-24 01:22:42 0.19 Kt/V F L/WK PDF CC 2023-05-24 01:22:42 54.08 L/wk F L/WK/1.73 TOTAL 2023-05-24 01:22:42 52.64 L/WK/B F UREA CLR UR 2023-05-24 01:22:42 0.9 mL/min F BUN/CREAT 2023-05-24 01:22:42 5 Calc F 6.9-32.9 CRE CLR UR 2023-05-24 01:22:42 2 mL/min F 97.0-137.0 L/WK/1.73 RESID 2023-05-24 01:22:42 10.3 L/WK/B F KT/V TOTAL (M) 2023-05-24 01:22:42 1.6 Kt/V F L/WK RESID CC 2023-05-24 01:22:42 13.17 L/wk F L/WK/1.73 PDF 2023-05-24 01:22:42 42.33 L/WK/B F UREA CLR UR/BSA 2023-05-24 01:22:42 0.7 mL/min F 64.0-99.0 CRE CLR UR/BSA 2023-05-24 01:22:42 1 mL/min F 85.0-125.0 L/WK/1.73 PDF 2023-05-24 01:22:42 42.33 L/WK/B F L/WK/1.73 RESID 2023-05-24 01:22:42 10.3 L/WK/B F KT/V PDF (M) 2023-05-24 01:22:42 1.41 Kt/V F KT/V RESID (M) 2023-05-24 01:22:42 0.19 Kt/V F L/WK/1.73 TOTAL 2023-05-24 01:22:42 52.64 L/WK/B F L/WK PDF CC 2023-05-24 01:22:42 54.08 L/wk F KT/V TOTAL (M) 2023-05-24 01:22:42 1.6 Kt/V F L/WK RESID CC 2023-05-24 01:22:42 13.17 L/wk F UREA CLR UR 2023-05-24 01:22:42 0.9 mL/min F BUN/CREAT 2023-05-24 01:22:42 5 Calc F 6.9-32.9 UREA CLR UR/BSA 2023-05-24 01:22:42 0.7 mL/min F 64.0-99.0 CRE CLR UR/BSA 2023-05-24 01:22:42 1 mL/min F 85.0-125.0 CRE CLR UR 2023-05-24 01:22:42 2 mL/min F 97.0-137.0 Creatinine [Mass/volume] in Serum or Plasma 2023-05-24 01:21:33 7.53 mg/dL F 0.7-1.3 Urea nitrogen [Mass/volume] in Serum or Plasma 2023-05-24 01:21:33 38 mg/dL F 9.0-23.0 Urea nitrogen [Mass/volume] in Serum or Plasma 2023-05-24 01:21:33 38 mg/dL F 9.0-23.0 Creatinine [Mass/volume] in Serum or Plasma 2023-05-24 01:21:33 7.53 mg/dL F 0.7-1.3 Creatinine [Mass/volume] in Serum or Plasma 2023-05-24 01:21:33 7.53 mg/dL F 0.7-1.3 Urea nitrogen [Mass/volume] in Serum or Plasma 2023-05-24 01:21:33 38 mg/dL F 9.0-23.0 Urea Gen Rate 2023-05-23 13:13:09 6.5 GM/D F NPCR PD MALE 2023-05-23 13:13:09 0.5 G/KG/D F PNA (PD) 2023-05-23 13:13:09 48.4 g/day F PCR PD MALE 2023-05-23 13:13:09 43 g/day F nPNA (PD MALE) 2023-05-23 13:13:09 0.55 G/KG/D F Urea Gen Rate 2023-05-23 13:13:09 6.5 GM/D F PCR PD MALE 2023-05-23 13:13:09 43 g/day F nPNA (PD MALE) 2023-05-23 13:13:09 0.55 G/KG/D F NPCR PD MALE 2023-05-23 13:13:09 0.5 G/KG/D F PNA (PD) 2023-05-23 13:13:09 48.4 g/day F PNA (PD) 2023-05-23 13:13:09 48.4 g/day F NPCR PD MALE 2023-05-23 13:13:09 0.5 G/KG/D F Urea Gen Rate 2023-05-23 13:13:09 6.5 GM/D F nPNA (PD MALE) 2023-05-23 13:13:09 0.55 G/KG/D F PCR PD MALE 2023-05-23 13:13:09 43 g/day F Urea nitrogen [Mass/volume] in Urine 2023-05-23 13:12:40 256 mg/dL F Creatinine [Mass/volume] in Urine 2023-05-23 13:12:40 90.89 mg/dL F Urea nitrogen [Mass/volume] in Urine 2023-05-23 13:12:40 256 mg/dL F Creatinine [Mass/volume] in Urine 2023-05-23 13:12:40 90.89 mg/dL F Urea nitrogen [Mass/volume] in Urine 2023-05-23 13:12:40 256 mg/dL F Creatinine [Mass/volume] in Urine 2023-05-23 13:12:40 90.89 mg/dL F BSA TOBIN 2023-05-22 19:19:01 2.21 sq m F TBW ANGELA MALE 2023-05-22 19:19:01 50.65 Liters F TBW ANGELA MALE 2023-05-22 19:19:01 50.65 Liters F BSA TOBIN 2023-05-22 19:19:01 2.21 sq m F TBW ANGELA GAUTHIER 2023-05-22 19:19:01 50.65 Liters F BSA TOBIN 2023-05-22 19:19:01 2.21 sq m F Creatinine [Mass/volume] in Peritoneal [...] peritoneal dialysis 2023-05-22 19:18:45 28 mg/dL F HEIGHT IN INCHES 2023-05-21 21:12:30 69 Inches F PATIENT AGE 2023-05-21 21:12:30 68 Years F BODY WEIGHT (LBS) 2023-05-21 21:12:30 234 lbs F AMPUTATE FACTOR 2023-05-21 21:12:30 0 F HEIGHT IN INCHES 2023-05-21 21:12:30 69 Inches F PATIENT AGE 2023-05-21 21:12:30 68 Years F BODY WEIGHT (LBS) 2023-05-21 21:12:30 234 lbs F AMPUTATE FACTOR 2023-05-21 21:12:30 0 F HEIGHT IN INCHES 2023-05-21 21:12:30 69 Inches F BODY WEIGHT (LBS) 2023-05-21 21:12:30 234 lbs F AMPUTATE FACTOR 2023-05-21 21:12:30 0 F PATIENT AGE 2023-05-21 21:12:30 68 Years F Total Volume of EFFL/DIAL 2023-05-21 21:12:30 34920 mLs F MINIMUM GOAL: KT/V PD 2023-05-21 21:12:30 1.7 F Total Volume of EFFL/DIAL 2023-05-21 21:12:30 11569 mLs F MINIMUM GOAL: KT/V PD 2023-05-21 21:12:30 1.7 F Total Volume of EFFL/DIAL 2023-05-21 21:12:30 42375 mLs F MINIMUM GOAL: KT/V PD 2023-05-21 [...] Plasma 2023-04-03 16:22:19 40 mg/dL F 9.0-23.0 UREA CLR UR 2023-02-26 19:39:34 2.5 mL/min F L/WK RESID CC 2023-02-26 19:39:34 33.91 L/wk F KT/V TOTAL () 2023-02-26 19:39:34 1.86 Kt/V F KT/V RESID () 2023-02-26 19:39:34 0.49 Kt/V F L/WK/1.73 RESID 2023-02-26 19:39:34 26.26 L/WK/B F L/WK/1.73 TOTAL 2023-02-26 19:39:34 68.64 L/WK/B F UREA CLR UR/BSA 2023-02-26 19:39:34 1.9 mL/min F 64.0-99.0 CRE CLR UR/BSA 2023-02-26 19:39:34 3 mL/min F 85.0-125.0 CRE CLR UR 2023-02-26 19:39:34 4 mL/min F 97.0-137.0 KT/V TOTAL () 2023-02-26 19:39:34 1.86 Kt/V F KT/V RESID () 2023-02-26 19:39:34 0.49 Kt/V F UREA CLR UR/BSA 2023-02-26 19:39:34 1.9 mL/min F 64.0-99.0 CRE CLR UR/BSA 2023-02-26 19:39:34 3 mL/min F 85.0-125.0 UREA CLR UR 2023-02-26 19:39:34 2.5 mL/min F L/WK/1.73 RESID 2023-02-26 19:39:34 26.26 L/WK/B F L/WK RESID CC 2023-02-26 19:39:34 33.91 L/wk F L/WK/1.73 TOTAL 2023-02-26 19:39:34 68.64 L/WK/B F CRE CLR UR 2023-02-26 19:39:34 4 mL/min F 97.0-137.0 L/WK RESID CC 2023-02-26 19:39:34 33.91 L/wk F KT/V TOTAL (M) 2023-02-26 19:39:34 1.86 Kt/V F UREA CLR UR 2023-02-26 19:39:34 2.5 mL/min F KT/V RESID (M) 2023-02-26 19:39:34 0.49 Kt/V F L/WK/1.73 RESID 2023-02-26 19:39:34 26.26 L/WK/B F L/WK/1.73 TOTAL 2023-02-26 19:39:34 68.64 L/WK/B F UREA CLR UR/BSA 2023-02-26 19:39:34 1.9 mL/min F 64.0-99.0 CRE CLR UR/BSA 2023-02-26 19:39:34 3 mL/min F 85.0-125.0 CRE CLR UR 2023-02-26 19:39:34 4 mL/min F 97.0-137.0 PNA (PD) 2023-02-26 19:39:34 56.5 g/day F [...] MALE 2023-02-26 19:39:34 51 g/day F Urea Gen Rate 2023-02-26 19:39:34 8.2 GM/D F NPCR PD MALE 2023-02-26 19:39:34 0.57 G/KG/D F nPNA (PD MALE) 2023-02-26 19:39:34 0.64 G/KG/D F Urea nitrogen [Mass/volume] in Urine 2023-02-26 19:39:11 240 mg/dL F Creatinine [Mass/volume] in Urine 2023-02-26 19:39:11 82.79 mg/dL F Urea nitrogen [Mass/volume] in Urine 2023-02-26 19:39:11 240 mg/dL F Creatinine [Mass/volume] in Urine 2023-02-26 19:39:11 82.79 mg/dL F Urea nitrogen [Mass/volume] in Urine 2023-02-26 19:39:11 240 mg/dL F Creatinine [Mass/volume] in Urine 2023-02-26 19:39:11 82.79 mg/dL F L/WK/1.73 PDF 2023-02-26 19:29:51 42.39 L/WK/B F L/WK PDF CC 2023-02-26 19:29:51 54.74 L/wk F KT/V PDF (M) 2023-02-26 19:29:51 1.37 Kt/V F BUN/CREAT 2023-02-26 19:29:51 4.9 Calc F 6.9-32.9 BUN/CREAT 2023-02-26 19:29:51 4.9 Calc F 6.9-32.9 L/WK/1.73 PDF 2023-02-26 19:29:51 42.39 L/WK/B F L/WK [facility] 2023-02-26 19:29:51 54.74 L/wk F KT/V [facility] () 2023-02-26 19:29:51 1.37 Kt/V F L/WK/1.73 [facility] 2023-02-26 19:29:51 42.39 L/WK/B F L/WK [facility] 2023-02-26 19:29:51 54.74 L/wk F KT/V [facility] () 2023-02-26 19:29:51 1.37 Kt/V F BUN/CREAT 2023-02-26 19:29:51 4.9 Calc F [...] Plasma 2023-02-26 19:29:35 40 mg/dL F 9.0-23.0 BSA TOBIN 2023-02-26 06:09:52 2.23 sq m F TBW ANGELA MALE 2023-02-26 06:09:52 51.57 Liters F TBW ANGEL[facility] MALE 2023-02-26 06:09:52 51.57 Liters F BSA TOBIN 2023-02-26 06:09:52 2.23 sq m F BSA [facility] 2023-02-26 06:09:52 2.23 sq m F TBW ANGELA MALE 2023-02-26 06:09:52 51.57 Liters F Creatinine [Mass/volume] in Peritoneal dialysis [...] PATIENT AGE 2023-02-24 21:43:47 68 Years F AMPUTATE FACTOR 2023-02-24 21:43:47 0 F HEIGHT IN INCHES 2023-02-24 21:43:47 69 Inches F BODY WEIGHT (LBS) 2023-02-24 21:43:47 240 lbs F AMPUTATE FACTOR 2023-02-24 21:43:47 0 F PATIENT AGE 2023-02-24 21:43:47 68 Years F BODY WEIGHT (LBS) 2023-02-24 21:43:47 240 lbs F HEIGHT IN INCHES 2023-02-24 21:43:47 69 Inches F HEIGHT IN INCHES 2023-02-24 21:43:47 69 Inches F PATIENT AGE 2023-02-24 21:43:47 68 Years F AMPUTATE FACTOR 2023-02-24 21:43:47 0 F BODY WEIGHT (LBS) 2023-02-24 21:43:47 240 lbs F MINIMUM GOAL: KT/V PD 2023-02-24 21:43:47 1.7 F Total Volume of EFFL/DIAL 2023-02-24 21:43:47 62275 mLs F MINIMUM GOAL: KT/V PD 2023-02-24 21:43:47 1.7 F Total Volume of EFFL/DIAL 2023-02-24 21:43:47 60701 mLs F MINIMUM GOAL: KT/V PD 2023-02-24 21:43:47 1.7 F Total Volume of EFFL/DIAL 2023-02-24 21:43:47 05693 mLs F TOTAL VOLUME-24 HR URINE 2023-02-24 21:43:47 [...] BUN/CREAT 2022-12-27 16:17:51 6.4 Calc F 6.9-32.9 BUN/CREAT 2022-12-27 16:17:51 6.4 Calc F 6.9-32.9 Creatinine [Mass/volume] in Serum or Plasma 2022-12-27 16:17:40 8.38 mg/dL F 0.7-1.3 Urea nitrogen [Mass/volume] in Serum or Plasma 2022-12-27 16:17:40 54 mg/dL F 9.0-23.0 Creatinine [Mass/volume] in Serum or Plasma 2022-12-27 16:17:40 8.38 mg/dL F 0.7-1.3 Urea nitrogen [Mass/volume] in Serum or Plasma 2022-12-27 16:17:40 54 mg/dL F 9.0-23.0 KT/V PDF (M) 2022-11-24 03:59:49 1.83 Kt/V F L/WK/1.73 PDF 2022-11-24 03:59:49 57.28 L/WK/B F L/WK RESID CC 2022-11-24 03:59:49 36.77 L/wk F KT/V TOTAL (M) 2022-11-24 03:59:49 2.4 Kt/V F UREA CLR UR 2022-11-24 03:59:49 2.9 mL/min F KT/V RESID (M) 2022-11-24 03:59:49 0.57 Kt/V F L/WK/1.73 TOTAL 2022-11-24 03:59:49 85.86 L/WK/B F L/WK PDF CC 2022-11-24 03:59:49 73.71 L/wk F L/WK/1.73 RESID 2022-11-24 03:59:49 28.58 L/WK/B F BUN/CREAT 2022-11-24 03:59:49 4.7 Calc F 6.9-32.9 UREA CLR UR/BSA 2022-11-24 03:59:49 2.2 mL/min F 64.0-99.0 CRE CLR UR/BSA 2022-11-24 03:59:49 3 mL/min F 85.0-125.0 CRE CLR UR 2022-11-24 03:59:49 4 mL/min F 97.0-137.0 Creatinine [Mass/volume] in Serum or Plasma 2022-11-24 03:59:27 7.82 mg/dL F 0.7-1.3 Urea nitrogen [Mass/volume] in Serum or Plasma 2022-11-24 03:59:27 37 mg/dL F 9.0-23.0 nPNA (PD MALE) 2022-11-24 03:36:53 0.72 G/KG/D F PNA (PD) 2022-11-24 03:36:53 64.1 g/day F NPCR PD MALE 2022-11-24 03:36:53 0.65 G/KG/D F Urea Gen Rate 2022-11-24 03:36:53 9.7 GM/D F PCR PD MALE 2022-11-24 03:36:53 57 g/day F Urea nitrogen [Mass/volume] in Urine 2022-11-24 03:36:35 236 mg/dL F Creatinine [Mass/volume] in Urine 2022-11-24 03:36:35 76.52 mg/dL F BSA TOBIN 2022-11-24 02:28:34 2.23 sq m F TBW MILLER MALE 2022-11-24 02:28:34 51.36 Liters F Creatinine [Mass/volume] in Peritoneal dialysis fluid 2022-11-24 02:27:35 4.96 mg/dL F Urea nitrogen [Mass/volume] in Peritoneal fluid --24 hours post peritoneal dialysis 2022-11-24 02:27:35 30 mg/dL F MINIMUM GOAL: KT/V PD 2022-11-22 20:28:52 1.7 F COLLECTION TIME FOR URINE 2022-11-22 20:28:52 1440 min F HEIGHT IN INCHES 2022-11-22 20:28:52 69 Inches F AMPUTATE FACTOR 2022-11-22 20:28:52 0 F TOTAL VOLUME-24 HR URINE 2022-11-22 20:28:52 650 mL F BODY WEIGHT (LBS) 2022-11-22 20:28:52 238 lbs F PATIENT AGE 2022-11-22 20:28:52 67 Years F Total Volume of EFFL/DIAL 2022-11-22 20:28:52 92389 mLs F BUN/CREAT 2022-10-30 06:50:20 4.9 Calc F 6.9-32.9 BUN/CREAT 2022-10-30 06:50:20 4.9 Calc F 6.9-32.9 BUN/CREAT 2022-10-30 06:50:20 4.9 Calc F 6.9-32.9 Creatinine [Mass/volume] in Serum or Plasma 2022-10-30 [...] Plasma 2022-09-27 19:21:36 36 mg/dL F 9.0-23.0 L/WK/1.73 RESID 2022-08-28 04:36:23 29.83 L/WK/B F L/WK/1.73 PDF 2022-08-28 04:36:23 39.92 L/WK/B F L/WK RESID CC 2022-08-28 04:36:23 38.52 L/wk F L/WK/1.73 TOTAL 2022-08-28 04:36:23 69.75 L/WK/B F L/WK PDF CC 2022-08-28 04:36:23 51.55 L/wk F KT/V RESID (M) 2022-08-28 04:36:23 0.52 Kt/V F UREA CLR UR 2022-08-28 04:36:23 2.7 mL/min F KT/V TOTAL (M) 2022-08-28 04:36:23 1.92 Kt/V F KT/V PDF (M) 2022-08-28 04:36:23 1.4 Kt/V F BUN/CREAT 2022-08-28 04:36:23 4.4 Calc F 6.9-32.9 UREA CLR UR/BSA 2022-08-28 04:36:23 2.1 mL/min F 64.0-99.0 CRE CLR UR/BSA 2022-08-28 04:36:23 4 mL/min F 85.0-125.0 CRE CLR UR 2022-08-28 04:36:23 5 mL/min F 97.0-137.0 L/WK/1.73 PDF 2022-08-28 04:36:23 39.92 L/WK/B F L/WK/1.73 RESID 2022-08-28 04:36:23 29.83 L/WK/B F L/WK/1.73 TOTAL 2022-08-28 04:36:23 69.75 L/WK/B F KT/V TOTAL (M) 2022-08-28 04:36:23 1.92 Kt/V F BUN/CREAT 2022-08-28 04:36:23 4.4 Calc F 6.9-32.9 CRE CLR UR 2022-08-28 04:36:23 5 mL/min F 97.0-137.0 L/WK RESID CC 2022-08-28 04:36:23 38.52 L/wk F L/WK PDF CC 2022-08-28 04:36:23 51.55 L/wk F KT/V RESID (M) 2022-08-28 04:36:23 0.52 Kt/V F KT/V PDF (M) 2022-08-28 04:36:23 1.4 Kt/V F UREA CLR UR 2022-08-28 04:36:23 2.7 mL/min F UREA CLR UR/BSA 2022-08-28 04:36:23 2.1 mL/min F 64.0-99.0 CRE CLR UR/BSA 2022-08-28 04:36:23 4 mL/min F 85.0-125.0 L/WK/1.73 RESID 2022-08-28 04:36:23 29.83 L/WK/B F L/WK RESID CC 2022-08-28 04:36:23 38.52 L/wk F KT/V RESID (M) 2022-08-28 04:36:23 0.52 Kt/V F L/WK/1.73 PDF 2022-08-28 04:36:23 39.92 L/WK/B F L/WK/1.73 TOTAL 2022-08-28 04:36:23 69.75 L/WK/B F KT/V PDF (M) 2022-08-28 04:36:23 1.4 Kt/V F KT/V TOTAL (M) 2022-08-28 04:36:23 1.92 Kt/V F UREA CLR UR 2022-08-28 04:36:23 2.7 mL/min F L/WK PDF CC 2022-08-28 04:36:23 51.55 L/wk F BUN/CREAT 2022-08-28 04:36:23 4.4 Calc F 6.9-32.9 UREA CLR UR/BSA 2022-08-28 04:36:23 2.1 mL/min F 64.0-99.0 CRE CLR UR/BSA 2022-08-28 04:36:23 4 mL/min F 85.0-125.0 CRE CLR UR 2022-08-28 04:36:23 5 mL/min F 97.0-137.0 Creatinine [Mass/volume] in Serum or Plasma 2022-08-28 [...] Plasma 2022-08-28 04:35:20 35 mg/dL F 9.0-23.0 NPCR PD MALE 2022-08-27 17:34:17 0.53 G/KG/D F nPNA (PD MALE) 2022-08-27 17:34:17 0.59 G/KG/D F PNA (PD) 2022-08-27 17:34:17 52.5 g/day F PCR PD MALE 2022-08-27 17:34:17 47 g/day F Urea Gen Rate 2022-08-27 17:34:17 7.4 GM/D F nPNA (PD MALE) 2022-08-27 17:34:17 0.59 G/KG/D F NPCR PD MALE 2022-08-27 17:34:17 0.53 G/KG/D F PNA (PD) 2022-08-27 17:34:17 52.5 g/day F Urea Gen Rate 2022-08-27 17:34:17 7.4 GM/D F PCR PD MALE 2022-08-27 17:34:17 47 g/day F nPNA (PD MALE) 2022-08-27 17:34:17 0.59 G/KG/D F NPCR PD MALE 2022-08-27 17:34:17 0.53 G/KG/D F PCR PD MALE 2022-08-27 17:34:17 47 g/day F Urea Gen Rate 2022-08-27 17:34:17 7.4 GM/D F PNA (PD) 2022-08-27 17:34:17 52.5 g/day F Urea nitrogen [Mass/volume] in Urine 2022-08-27 [...] 2022-08-27 16:47:10 2.23 sq m F TBW ANGELA MALE 2022-08-27 16:47:10 51.67 Liters F BSA TOBIN 2022-08-27 16:47:10 2.23 sq m F TBW ANGELA MALE 2022-08-27 16:47:10 51.67 Liters F Urea nitrogen [Mass/volume] in Peritoneal fluid --24 hours post peritoneal dialysis 2022-08-27 16:46:57 26 mg/dL F Creatinine [Mass/volume] in Peritoneal dialysis fluid 2022-08-27 16:46:57 4.25 mg/dL F Creatinine [Mass/volume] in Peritoneal dialysis fluid 2022-08-27 16:46:57 4.25 mg/dL F Urea nitrogen [Mass/volume] in Peritoneal fluid --24 hours post peritoneal dialysis 2022-08-27 16:46:57 26 mg/dL F Urea nitrogen [Mass/volume] in Peritoneal fluid --24 hours post peritoneal dialysis 2022-08-27 16:46:57 26 mg/dL F Creatinine [Mass/volume] in Peritoneal dialysis fluid 2022-08-27 16:46:57 4.25 mg/dL F PATIENT AGE 2022-08-26 19:38:26 67 Years F AMPUTATE FACTOR 2022-08-26 19:38:26 0 F HEIGHT IN INCHES 2022-08-26 19:38:26 69 Inches F BODY WEIGHT (LBS) 2022-08-26 19:38:26 240 lbs F BODY WEIGHT (LBS) 2022-08-26 19:38:26 240 lbs F PATIENT AGE 2022-08-26 19:38:26 67 Years F HEIGHT IN INCHES 2022-08-26 19:38:26 69 Inches F AMPUTATE FACTOR 2022-08-26 19:38:26 0 F AMPUTATE FACTOR 2022-08-26 19:38:26 0 F PATIENT AGE 2022-08-26 19:38:26 67 Years F HEIGHT IN INCHES 2022-08-26 19:38:26 69 Inches F BODY WEIGHT (LBS) 2022-08-26 19:38:26 240 lbs F Total Volume of EFFL/DIAL 2022-08-26 19:38:26 18478 mLs F MINIMUM GOAL: KT/V PD 2022-08-26 19:38:26 1.7 F MINIMUM GOAL: KT/V PD 2022-08-26 19:38:26 1.7 F Total Volume of EFFL/DIAL 2022-08-26 19:38:26 72215 mLs F Total Volume of EFFL/DIAL 2022-08-26 19:38:26 70806 mLs F MINIMUM GOAL: KT/V PD 2022-08-26 19:38:26 1.7 F TOTAL VOLUME-24 HR URINE 2022-08-26 19:38:26 600 mL F COLLECTION TIME FOR URINE 2022-08-26 19:38:26 1440 min F COLLECTION TIME FOR URINE 2022-08-26 19:38:26 1440 min F TOTAL VOLUME-24 HR URINE 2022-08-26 19:38:26 600 mL F COLLECTION TIME FOR URINE 2022-08-26 19:38:26 1440 min F TOTAL VOLUME-24 HR URINE 2022-08-26 19:38:26 600 mL F BUN/CREAT 2022-07-24 20:39:37 5.1 Calc F 6.9-32.9 Creatinine [Mass/volume] in Serum or Plasma 2022-07-24 20:39:22 6.92 mg/dL F 0.7-1.3 Urea nitrogen [Mass/volume] in Serum or Plasma 2022-07-24 20:39:22 35 mg/dL F 9.0-23.0 BUN/CREAT 2022-06-22 17:30:23 4.7 Calc F 6.9-32.9 BUN/CREAT 2022-06-22 17:30:23 4.7 Calc F 6.9-32.9 Creatinine [Mass/volume] in Serum or Plasma 2022-06-22 17:30:12 6.58 mg/dL F 0.7-1.3 Urea nitrogen [Mass/volume] in Serum or Plasma 2022-06-22 17:30:12 31 mg/dL F 9.0-23.0 Creatinine [Mass/volume] in Serum or Plasma 2022-06-22 17:30:12 6.58 mg/dL F 0.7-1.3 Urea nitrogen [Mass/volume] in Serum or Plasma 2022-06-22 17:30:12 31 mg/dL F 9.0-23.0 L/WK/1.73 RESID 2022-05-25 23:33:37 39.15 L/WK/B F KT/V PDF (M) 2022-05-25 23:33:37 1.52 Kt/V F L/WK/1.73 TOTAL 2022-05-25 23:33:37 80.76 L/WK/B F L/WK/1.73 PDF 2022-05-25 23:33:37 41.61 L/WK/B F L/WK PDF CC 2022-05-25 23:33:37 54.3 L/wk F KT/V RESID (M) 2022-05-25 23:33:37 0.54 Kt/V F L/WK RESID CC 2022-05-25 23:33:37 51.09 L/wk F KT/V TOTAL (M) 2022-05-25 23:33:37 2.05 Kt/V F UREA CLR UR 2022-05-25 23:33:37 2.8 mL/min F BUN/CREAT 2022-05-25 23:33:37 5.5 Calc F 6.9-32.9 UREA CLR UR/BSA 2022-05-25 23:33:37 2.1 mL/min F 64.0-99.0 CRE CLR UR/BSA 2022-05-25 23:33:37 6 mL/min F 85.0-125.0 CRE CLR UR 2022-05-25 23:33:37 7 mL/min F 97.0-137.0 KT/V RESID (M) 2022-05-25 23:33:37 0.54 Kt/V F L/WK RESID CC 2022-05-25 23:33:37 51.09 L/wk F L/WK/1.73 PDF 2022-05-25 23:33:37 41.61 L/WK/B F L/WK/1.73 TOTAL 2022-05-25 23:33:37 80.76 L/WK/B F L/WK PDF CC 2022-05-25 23:33:37 54.3 L/wk F KT/V PDF (M) 2022-05-25 23:33:37 1.52 Kt/V F KT/V TOTAL (M) 2022-05-25 23:33:37 2.05 Kt/V F L/WK/1.73 RESID 2022-05-25 23:33:37 39.15 L/WK/B F UREA CLR UR 2022-05-25 23:33:37 2.8 mL/min F UREA CLR UR/BSA 2022-05-25 23:33:37 2.1 mL/min F 64.0-99.0 BUN/CREAT 2022-05-25 23:33:37 5.5 Calc F 6.9-32.9 CRE CLR UR/BSA 2022-05-25 23:33:37 6 mL/min F 85.0-125.0 CRE CLR UR 2022-05-25 23:33:37 7 mL/min F 97.0-137.0 L/WK/1.73 PDF 2022-05-25 23:33:37 41.61 L/WK/B F L/WK/1.73 TOTAL 2022-05-25 23:33:37 80.76 L/WK/B F L/WK RESID CC 2022-05-25 23:33:37 51.09 L/wk F KT/V PDF (M) 2022-05-25 23:33:37 1.52 Kt/V F L/WK PDF CC 2022-05-25 23:33:37 54.3 L/wk F KT/V RESID (M) 2022-05-25 23:33:37 0.54 Kt/V F KT/V TOTAL (M) 2022-05-25 23:33:37 2.05 Kt/V F L/WK/1.73 RESID 2022-05-25 23:33:37 39.15 L/WK/B F UREA CLR UR 2022-05-25 23:33:37 2.8 mL/min F BUN/CREAT 2022-05-25 23:33:37 5.5 Calc F 6.9-32.9 UREA CLR UR/BSA 2022-05-25 23:33:37 2.1 mL/min F 64.0-99.0 CRE CLR UR/BSA 2022-05-25 23:33:37 6 mL/min F 85.0-125.0 CRE CLR UR 2022-05-25 23:33:37 7 mL/min F 97.0-137.0 KT/V RESID (M) 2022-05-25 23:33:37 0.54 Kt/V F UREA CLR UR 2022-05-25 23:33:37 2.8 mL/min F L/WK/1.73 RESID 2022-05-25 23:33:37 39.15 L/WK/B F L/WK PDF CC 2022-05-25 23:33:37 54.3 L/wk F L/WK RESID CC 2022-05-25 23:33:37 51.09 L/wk F KT/V PDF (M) 2022-05-25 23:33:37 1.52 Kt/V F KT/V TOTAL (M) 2022-05-25 23:33:37 2.05 Kt/V F L/WK/1.73 PDF 2022-05-25 23:33:37 41.61 L/WK/B F L/WK/1.73 TOTAL 2022-05-25 23:33:37 80.76 L/WK/B F BUN/CREAT 2022-05-25 23:33:37 5.5 Calc F 6.9-32.9 UREA CLR UR/BSA 2022-05-25 23:33:37 2.1 mL/min F 64.0-99.0 CRE CLR UR/BSA 2022-05-25 23:33:37 6 mL/min F 85.0-125.0 CRE CLR UR 2022-05-25 23:33:37 7 mL/min F 97.0-137.0 Creatinine [Mass/volume] in Serum or Plasma 2022-05-25 [...] Plasma 2022-05-25 23:33:20 33 mg/dL F 9.0-23.0 PNA (PD) 2022-05-25 19:49:43 53.5 g/day F Urea Gen Rate 2022-05-25 19:49:43 7.6 GM/D F PCR PD MALE 2022-05-25 19:49:43 48 g/day F nPNA (PD MALE) 2022-05-25 19:49:43 0.59 G/KG/D F NPCR PD MALE 2022-05-25 19:49:43 0.53 G/KG/D F PCR PD MALE 2022-05-25 19:49:43 48 g/day F PNA (PD) 2022-05-25 19:49:43 53.5 g/day F nPNA (PD MALE) 2022-05-25 19:49:43 0.59 G/KG/D F NPCR PD MALE 2022-05-25 19:49:43 0.53 G/KG/D F Urea Gen Rate 2022-05-25 19:49:43 7.6 GM/D F Urea Gen Rate 2022-05-25 19:49:43 7.6 GM/D F nPNA (PD MALE) 2022-05-25 19:49:43 0.59 G/KG/D F PCR PD MALE 2022-05-25 19:49:43 48 g/day F PNA (PD) 2022-05-25 19:49:43 53.5 g/day F NPCR PD MALE 2022-05-25 19:49:43 0.53 G/KG/D F PNA (PD) 2022-05-25 19:49:43 53.5 g/day F Urea Gen Rate 2022-05-25 19:49:43 7.6 GM/D F nPNA (PD MALE) 2022-05-25 19:49:43 0.59 G/KG/D F PCR PD MALE 2022-05-25 19:49:43 48 g/day F NPCR PD MALE 2022-05-25 19:49:43 0.53 G/KG/D F Creatinine [Mass/volume] in Urine 2022-05-25 19:49:11 105.25 mg/dL F Urea nitrogen [Mass/volume] in Urine 2022-05-25 19:49:11 222 mg/dL F Urea nitrogen [Mass/volume] in Urine 2022-05-25 19:49:11 222 mg/dL F Creatinine [Mass/volume] in Urine 2022-05-25 19:49:11 105.25 mg/dL F Creatinine [Mass/volume] in Urine 2022-05-25 19:49:11 105.25 mg/dL F Urea nitrogen [Mass/volume] in Urine 2022-05-25 19:49:11 222 mg/dL F Creatinine [Mass/volume] in Urine 2022-05-25 19:49:11 105.25 mg/dL F Urea nitrogen [Mass/volume] in Urine 2022-05-25 19:49:11 222 mg/dL F [facility]UDD 2022-05-25 19:17:03 2.26 sq m F TBW ANGELA MALE 2022-05-25 19:17:03 52.58 Liters F CARL[facility] RUDD 2022-05-25 19:17:03 2.26 sq m F TBW ANGELA MALE 2022-05-25 19:17:03 52.58 Liters F CARL[facility] RUDD 2022-05-25 19:17:03 2.26 sq m F TBW ANGELA MALE 2022-05-25 19:17:03 52.58 Liters F TBW ANGELA MALE 2022-05-25 19:17:03 52.58 Liters F CARLOS RUDD 2022-05-25 19:17:03 2.26 sq m F Urea nitrogen [Mass/volume] in Peritoneal fluid --24 hours post peritoneal dialysis 2022-05-25 19:16:19 26 mg/dL F Creatinine [Mass/volume] in Peritoneal dialysis fluid 2022-05-25 19:16:19 3.21 mg/dL F Urea nitrogen [Mass/volume] in Peritoneal fluid --24 hours post peritoneal dialysis 2022-05-25 19:16:19 26 mg/dL F Creatinine [Mass/volume] in Peritoneal dialysis fluid 2022-05-25 19:16:19 3.21 mg/dL F Creatinine [Mass/volume] in Peritoneal dialysis fluid 2022-05-25 19:16:19 3.21 mg/dL F Urea nitrogen [Mass/volume] in Peritoneal fluid --24 hours post peritoneal dialysis 2022-05-25 19:16:19 26 mg/dL F Urea nitrogen [Mass/volume] in Peritoneal fluid --24 hours post peritoneal dialysis 2022-05-25 19:16:19 26 mg/dL F Creatinine [Mass/volume] in Peritoneal dialysis fluid 2022-05-25 19:16:19 3.21 mg/dL F PATIENT AGE 2022-05-24 20:57:45 67 Years F BODY WEIGHT (LBS) 2022-05-24 20:57:45 246 lbs F HEIGHT IN INCHES 2022-05-24 20:57:45 69 Inches F AMPUTATE FACTOR 2022-05-24 20:57:45 0 F HEIGHT IN INCHES 2022-05-24 20:57:45 69 Inches F BODY WEIGHT (LBS) 2022-05-24 20:57:45 246 lbs F PATIENT AGE 2022-05-24 20:57:45 67 Years F AMPUTATE FACTOR 2022-05-24 20:57:45 0 F AMPUTATE FACTOR 2022-05-24 20:57:45 0 F BODY WEIGHT (LBS) 2022-05-24 20:57:45 246 lbs F PATIENT AGE 2022-05-24 20:57:45 67 Years F HEIGHT IN INCHES 2022-05-24 20:57:45 69 Inches F BODY WEIGHT (LBS) 2022-05-24 20:57:45 246 lbs F HEIGHT IN INCHES 2022-05-24 20:57:45 69 Inches F AMPUTATE FACTOR 2022-05-24 20:57:45 0 F PATIENT AGE 2022-05-24 20:57:45 67 Years F MINIMUM GOAL: KT/V PD 2022-05-24 20:57:45 1.7 F Total Volume of EFFL/DIAL 2022-05-24 20:57:45 03026 mLs F MINIMUM GOAL: KT/V PD 2022-05-24 20:57:45 1.7 F Total Volume of EFFL/DIAL 2022-05-24 20:57:45 22187 mLs F MINIMUM GOAL: KT/V PD 2022-05-24 20:57:45 1.7 F Total Volume of EFFL/DIAL 2022-05-24 20:57:45 29378 mLs F MINIMUM GOAL: KT/V PD 2022-05-24 20:57:45 1.7 F Total Volume of EFFL/DIAL 2022-05-24 20:57:45 71433 mLs F COLLECTION TIME FOR URINE 2022-05-24 20:57:45 1440 min F TOTAL VOLUME-24 HR URINE 2022-05-24 20:57:45 600 mL F COLLECTION TIME FOR URINE 2022-05-24 20:57:45 1440 min F TOTAL VOLUME-24 HR URINE 2022-05-24 20:57:45 600 mL F TOTAL VOLUME-24 HR URINE 2022-05-24 20:57:45 600 mL F COLLECTION TIME FOR URINE 2022-05-24 20:57:45 1440 min F COLLECTION TIME FOR URINE 2022-05-24 20:57:45 1440 min F TOTAL VOLUME-24 HR URINE 2022-05-24 20:57:45 600 mL F BUN/CREAT 2022-04-24 21:50:59 6.3 Calc F 6.9-32.9 BUN/CREAT 2022-04-24 21:50:59 6.3 Calc F 6.9-32.9 Creatinine [Mass/volume] in Serum or Plasma 2022-04-24 21:50:18 5.56 mg/dL F 0.7-1.3 Urea nitrogen [Mass/volume] in Serum or Plasma 2022-04-24 21:50:18 35 mg/dL F 9.0-23.0 Creatinine [Mass/volume] in Serum or Plasma 2022-04-24 21:50:18 5.56 mg/dL F 0.7-1.3 Urea nitrogen [Mass/volume] in Serum or Plasma 2022-04-24 21:50:18 35 mg/dL F 9.0-23.0 BUN/CREAT 2022-04-02 16:29:00 5.6 Calc F 6.9-32.9 Creatinine [Mass/volume] in Serum or Plasma 2022-04-02 16:28:53 5.67 mg/dL F 0.7-1.3 Urea nitrogen [Mass/volume] in Serum or Plasma 2022-04-02 16:28:53 32 mg/dL F 9.0-23.0 nPNA (PD MALE) 2022-02-21 02:21:52 0.73 G/KG/D F PCR PD MALE 2022-02-21 02:21:52 59 g/day F PNA (PD) 2022-02-21 02:21:52 65.8 g/day F Urea Gen Rate 2022-02-21 02:21:52 10 GM/D F NPCR PD MALE 2022-02-21 02:21:52 0.65 G/KG/D F nPNA (PD MALE) 2022-02-21 02:21:52 0.73 G/KG/D F Urea Gen Rate 2022-02-21 02:21:52 10 GM/D F PNA (PD) 2022-02-21 02:21:52 65.8 g/day F PCR PD MALE 2022-02-21 02:21:52 59 g/day F NPCR PD MALE 2022-02-21 02:21:52 0.65 G/KG/D F nPNA (PD MALE) 2022-02-21 02:21:52 0.73 G/KG/D F PNA (PD) 2022-02-21 02:21:52 65.8 g/day F NPCR PD MALE 2022-02-21 02:21:52 0.65 G/KG/D F PCR PD MALE 2022-02-21 02:21:52 59 g/day F Urea Gen Rate 2022-02-21 02:21:52 10 GM/D F KT/V PDF (M) 2022-02-21 02:21:52 1.69 Kt/V F L/WK/1.73 PDF 2022-02-21 02:21:52 46.58 L/WK/B F L/WK/1.73 TOTAL 2022-02-21 02:21:52 111.63 L/WK/B F L/WK PDF 2022-02-21 02:21:52 60.68 L/wk F KT/V TOTAL (M) 2022-02-21 02:21:52 2.65 Kt/V F L/WK/1.73 PDF 2022-02-21 02:21:52 46.58 L/WK/B F L/WK [facility] 2022-02-21 02:21:52 60.68 L/wk F KT/V PDF (M) 2022-02-21 02:21:52 1.69 Kt/V F L/WK/1.73 TOTAL 2022-02-21 02:21:52 111.63 L/WK/B F KT/V TOTAL (M) 2022-02-21 02:21:52 2.65 Kt/V F L/WK/1.73 PDF 2022-02-21 02:21:52 46.58 L/WK/B F KT/V PDF (M) 2022-02-21 02:21:52 1.69 Kt/V F KT/V TOTAL (M) 2022-02-21 02:21:52 2.65 Kt/V F L/WK/1.73 TOTAL 2022-02-21 02:21:52 111.63 L/WK/B F L/WK [facility] 2022-02-21 02:21:52 60.68 L/wk F Urea nitrogen [Mass/volume] in Peritoneal fluid [...] dialysis fluid 2022-02-21 02:20:47 3.3 mg/dL F L/WK RESID CC 2022-02-21 01:20:58 84.74 L/wk F L/WK/.73 RESID 2022-02-21 01:20:58 65.05 L/WK/B F UREA CLR UR 2022-02-21 01:20:58 5 mL/min F KT/V RESID (M) 2022-02-21 01:20:58 0.96 Kt/V F BUN/CREAT 2022-02-21 01:20:58 5.8 Calc F 6.9-32.9 UREA CLR UR/BSA 2022-02-21 01:20:58 3.8 mL/min F 64.0-99.0 CRE CLR UR/BSA 2022-02-21 01:20:58 9 mL/min F 85.0-125.0 CRE CLR UR 2022-02-21 01:20:58 12 mL/min F 97.0-137.0 L/WK RESID CC 2022-02-21 01:20:58 84.74 L/wk F L/WK/.73 RESID 2022-02-21 01:20:58 65.05 L/WK/B F UREA CLR UR 2022-02-21 01:20:58 5 mL/min F BUN/CREAT 2022-02-21 01:20:58 5.8 Calc F 6.9-32.9 KT/V RESID () 2022-02-21 01:20:58 0.96 Kt/V F UREA CLR UR/BSA 2022-02-21 01:20:58 3.8 mL/min F 64.0-99.0 CRE CLR UR/BSA 2022-02-21 01:20:58 9 mL/min F 85.0-125.0 CRE CLR UR 2022-02-21 01:20:58 12 mL/min F 97.0-137.0 L/WK RESID CC 2022-02-21 01:20:58 84.74 L/wk F L/WK/.73 RESID 2022-02-21 01:20:58 65.05 L/WK/B F UREA CLR UR 2022-02-21 01:20:58 5 mL/min F KT/V RESID (M) 2022-02-21 01:20:58 0.96 Kt/V F BUN/CREAT 2022-02-21 01:20:58 5.8 Calc F 6.9-32.9 UREA CLR UR/BSA 2022-02-21 01:20:58 3.8 mL/min F 64.0-99.0 CRE CLR UR/BSA 2022-02-21 01:20:58 9 mL/min F 85.0-125.0 CRE CLR UR 2022-02-21 01:20:58 12 mL/min F 97.0-137.0 Creatinine [Mass/volume] in Serum or Plasma 2022-02-21 [...] Plasma 2022-02-21 01:19:54 34 mg/dL F 9.0-23.0 BSA TOBIN 2022-02-21 01:00:53 2.25 sq m F TBW ANGELA MALE 2022-02-21 01:00:53 52.43 Liters F BSA TOBIN 2022-02-21 01:00:53 2.25 sq m F TBW ANGELA MALE 2022-02-21 01:00:53 52.43 Liters F BSA TOBIN 2022-02-21 01:00:53 2.25 sq m F TBW ANGELA GAUTHIER 2022-02-21 01:00:53 52.43 Liters F Urea nitrogen [Mass/volume] in Urine 2022-02-21 00:59:48 188 mg/dL F Creatinine [Mass/volume] in Urine 2022-02-21 00:59:48 76.6 mg/dL F Creatinine [Mass/volume] in Urine 2022-02-21 00:59:48 76.6 mg/dL F Urea nitrogen [Mass/volume] in Urine 2022-02-21 00:59:48 188 mg/dL F Creatinine [Mass/volume] in Urine 2022-02-21 00:59:48 76.6 mg/dL F Urea nitrogen [Mass/volume] in Urine 2022-02-21 00:59:48 188 mg/dL F MINIMUM GOAL: KT/V PD 2022-02-19 21:37:00 1.7 F Total Volume of EFFL/DIAL 2022-02-19 21:37:00 16955 mLs F Total Volume of EFFL/DIAL 2022-02-19 21:37:00 27536 mLs F MINIMUM GOAL: KT/V PD 2022-02-19 21:37:00 1.7 F MINIMUM GOAL: KT/V PD 2022-02-19 21:37:00 1.7 F Total Volume of EFFL/DIAL 2022-02-19 21:37:00 03322 mLs F TOTAL VOLUME-24 HR URINE 2022-02-19 21:37:00 1300 mL F AMPUTATE FACTOR 2022-02-19 21:37:00 0 F HEIGHT IN INCHES 2022-02-19 21:37:00 69 Inches F PATIENT AGE 2022-02-19 21:37:00 67 Years F COLLECTION TIME FOR URINE 2022-02-19 21:37:00 1440 min F BODY WEIGHT (LBS) 2022-02-19 21:37:00 245 lbs F AMPUTATE FACTOR 2022-02-19 21:37:00 0 F BODY WEIGHT (LBS) 2022-02-19 21:37:00 245 lbs F HEIGHT IN INCHES 2022-02-19 21:37:00 69 Inches F TOTAL VOLUME-24 HR URINE 2022-02-19 21:37:00 1300 mL F PATIENT AGE 2022-02-19 21:37:00 67 Years F COLLECTION TIME FOR URINE 2022-02-19 21:37:00 1440 min F TOTAL VOLUME-24 HR URINE 2022-02-19 21:37:00 1300 mL F HEIGHT IN INCHES 2022-02-19 21:37:00 69 Inches F AMPUTATE FACTOR 2022-02-19 21:37:00 0 F PATIENT AGE 2022-02-19 21:37:00 67 Years F COLLECTION TIME FOR URINE 2022-02-19 21:37:00 1440 min F BODY WEIGHT (LBS) 2022-02-19 21:37:00 245 lbs F BSA TOBIN L/WK RESID CC KT/V TOTAL (M) L/WK PDF CC L/WK/1.73 TOTAL Urea nitrogen [Mass/volume] in Serum or Plasma CRE CLR UR TBW MILLER MALE Creatinine [Mass/volume] in Serum or Plasma KT/V RESID (M) KT/V PDF (M) CRE CLR UR/BSA BUN/CREAT UREA CLR UR/BSA UREA CLR UR L/WK/1.73 RESID L/WK/1.73 PDF TBW MILLER MALE L/WK PDF CC CRE CLR UR L/WK/1.73 TOTAL UREA CLR UR/BSA BSA TOBIN L/WK RESID CC L/WK/1.73 PDF Urea nitrogen [Mass/volume] in Serum or Plasma Creatinine [Mass/volume] in Serum or Plasma CRE CLR UR/BSA KT/V RESID (M) KT/V PDF (M) UREA CLR UR L/WK/1.73 RESID BUN/CREAT KT/V TOTAL (M) UREA CLR UR/BSA BSA TOBIN L/WK RESID CC L/WK/1.73 TOTAL L/WK/1.73 PDF TBW MILLER MALE UREA CLR UR KT/V TOTAL (M) Urea nitrogen [Mass/volume] in Serum or Plasma Creatinine [Mass/volume] in Serum or Plasma CRE CLR UR KT/V RESID (M) L/WK PDF CC KT/V PDF (M) L/WK/1.73 RESID BUN/CREAT CRE CLR UR/BSA Urea nitrogen [Mass/volume] in Serum or Plasma Creatinine [Mass/volume] in Serum or Plasma BUN/CREAT UREA CLR UR/BSA CRE CLR UR/BSA UREA CLR UR BSA TOBIN TBW MILLER MALE CRE CLR UR L/WK/1.73 TOTAL L/WK PDF CC L/WK/1.73 RESID KT/V PDF (M) KT/V RESID (M) KT/V TOTAL (M) L/WK RESID CC L/WK/1.73 PDF L/WK RESID CC L/WK/1.73 RESID UREA CLR UR L/WK PDF CC KT/V PDF (M) KT/V RESID (M) TBW MILLER MALE KT/V TOTAL (M) CRE CLR UR L/WK/1.73 PDF BSA TOBIN BUN/CREAT UREA CLR UR/BSA Creatinine [Mass/volume] in Serum or Plasma L/WK/1.73 TOTAL Urea nitrogen [Mass/volume] in Serum or Plasma CRE CLR UR/BSA Urea Gen Rate NPCR PD MALE nPNA (PD MALE) PNA (PD) Creatinine [Mass/volume] in Peritoneal dialysis fluid PCR PD MALE Urea nitrogen [Mass/volume] in Peritoneal fluid --24 hours post peritoneal dialysis PCR PD MALE Urea Gen Rate Urea nitrogen [Mass/volume] in Peritoneal fluid --24 hours post peritoneal dialysis nPNA (PD MALE) Creatinine [Mass/volume] in Peritoneal dialysis fluid NPCR PD MALE PNA (PD) NPCR PD MALE nPNA (PD MALE) Urea Gen Rate Urea nitrogen [Mass/volume] in Peritoneal fluid --24 hours post peritoneal dialysis Creatinine [Mass/volume] in Peritoneal dialysis fluid PCR PD MALE PNA (PD) Creatinine [Mass/volume] in Peritoneal dialysis fluid Urea nitrogen [Mass/volume] in Peritoneal fluid --24 hours post peritoneal dialysis NPCR PD MALE PNA (PD) nPNA (PD MALE) PCR PD MALE Urea Gen Rate Urea Gen Rate nPNA (PD MALE) PCR PD MALE Urea nitrogen [Mass/volume] in Peritoneal fluid --24 hours post peritoneal dialysis PNA (PD) NPCR PD MALE Creatinine [Mass/volume] in Peritoneal dialysis fluid Urea nitrogen [Mass/volume] in Urine Creatinine [Mass/volume] in Urine Creatinine [Mass/volume] in Urine Urea nitrogen [Mass/volume] in Urine Creatinine [Mass/volume] in Urine Urea nitrogen [Mass/volume] in Urine Creatinine [Mass/volume] in Urine Urea nitrogen [Mass/volume] in Urine Creatinine [Mass/volume] in Urine Urea nitrogen [Mass/volume] in Urine Anemia Description Draw Date Result/Unit Status Ref Range Result Comments HCT CALC HGBX3 2024-10-29 19:48:03 30.3 % F 42.0-52.0 Erythrocyte distribution width [Ratio] by Automated count 2024-10-29 19:47:10 16.6 % F 11.0-15.0 MCV [Entitic volume] by Automated count 2024-10-29 19:47:10 92 fL F 80.0-100.0 MCH [Entitic mass] by Automated count 2024-10-29 19:47:10 28.9 pg F 25.9-34.2 MCHC [Mass/volume] by Automated count 2024-10-29 19:47:10 31.5 g/dL F 29.6-35.3 Platelets [#/volume] in Blood by Automated count 2024-10-29 19:47:10 181 x 10^3 cells/uL F 140.0-450.0 Reticulocytes/100 erythrocytes in Blood by Automated count 2024-10-29 19:47:10 1.81 % F 0.7-2.5 Erythrocytes [#/volume] in Blood by Automated count 2024-10-29 19:47:10 3.48 x 10^6 cells/uL F 4.6-6.2 Hematocrit [Volume Fraction] of Blood by Automated count 2024-10-29 19:47:10 32 % F 41.0-53.0 Hemoglobin [Mass/volume] in Blood 2024-10-29 19:47:10 10.1 g/dL F 14.0-18.0 IRON SATURATION 2024-10-29 08:02:11 37 % F 21.0-49.0 TIBC 2024-10-29 08:02:11 131 ug/dL F 250.0-425.0 Iron binding capacity.unsaturate d [Mass/volume] in Serum or Plasma 2024-10-29 07:32:19 82 ug/dL F 75.0-360.0 Iron [Mass/volume] in Serum or Plasma 2024-10-29 07:32:19 49 ug/dL F 65.0-175.0 Ferritin [Mass/volume] in Serum or Plasma 2024-10-29 05:58:18 565 ng/mL F 11.0-307.0 HEMATOCRIT 2024-10-10 04:59:59 31.5 F 38.7-51.1 Hemoglobin [Mass/volume] in Blood 2024-10-10 04:59:59 10.9 g/dL F 13.3-17.5 IRON SATURATION 2024-10-08 17:25:28 F Recollect - Quantity not sufficient,Unable to Calculate. TIBC 2024-10-08 17:25:28 F Recollect - Quantity not sufficient,Unable to Calculate. Iron binding capacity.unsaturate d [Mass/volume] in Serum or Plasma 2024-10-08 17:24:44 F Recollect - Quantity not sufficient Iron [Mass/volume] in Serum or Plasma 2024-10-08 17:24:44 F Recollect - Quantity not sufficient Ferritin [Mass/volume] in Serum or Plasma 2024-10-08 14:17:11 569 ng/mL F 22.0-322.0 HCT CALC HGBX3 2024-10-08 13:19:15 36.3 % F 42.0-52.0 Platelets [#/volume] in Blood by Automated count 2024-10-08 13:18:09 226 x 10^3 cells/uL F 140.0-450.0 MCH [Entitic mass] by Automated count 2024-10-08 13:18:09 29.5 pg F 25.9-34.2 MCHC [Mass/volume] by Automated count 2024-10-08 13:18:09 33.4 g/dL F 29.6-35.3 Erythrocytes [#/volume] in Blood by Automated count 2024-10-08 13:18:09 4.1 x 10^6 cells/uL F 4.6-6.2 Hematocrit [Volume Fraction] of Blood by Automated count 2024-10-08 13:18:09 36.3 % F 41.0-53.0 ABSOLUTE RETIC COUNT 2024-10-08 13:18:09 0.069 x 10^6 cells/uL F 0.035-0.127 Reticulocytes/100 erythrocytes in Blood by Automated count 2024-10-08 13:18:09 1.68 % F 0.7-2.5 Erythrocyte distribution width [Ratio] by Automated count 2024-10-08 13:18:09 15 % F 11.0-15.0 Hemoglobin [Mass/volume] in Blood 2024-10-08 13:18:09 12.1 g/dL F 14.0-18.0 MCV [Entitic volume] by Automated count 2024-10-08 13:18:09 88.4 fL F 80.0-100.0 Iron [Mass/volume] in Serum or Plasma 2024-09-04 04:59:59 40 F TIBC 2024-09-04 04:59:59 145 F Hemoglobin [Mass/volume] in Blood 2024-09-04 04:59:59 8.6 F Ferritin [Mass/volume] in Serum or Plasma 2024-09-04 04:59:59 560 F IRON SATURATION 2024-08-28 06:48:15 F Recollect - Hemolyzed specimen,Recollect - Hemolyzed specimen,Unable to Calculate. TIBC 2024-08-28 06:48:15 F Recollect - Hemolyzed specimen,Recollect - Hemolyzed specimen,Unable to Calculate. IRON SATURATION 2024-08-28 06:48:15 F Unable to Calculate.,Recolle ct - Hemolyzed specimen TIBC 2024-08-28 06:48:15 F Recollect - Hemolyzed specimen,Unable to Calculate. IRON SATURATION 2024-08-28 06:48:15 F Unable to Calculate.,Recolle ct - Hemolyzed specimen TIBC 2024-08-28 06:48:15 F Unable to Calculate.,Recolle ct - Hemolyzed specimen TIBC 2024-08-28 06:48:15 F Recollect - Hemolyzed specimen,Unable to Calculate. IRON SATURATION 2024-08-28 06:48:15 F Recollect - Hemolyzed specimen,Unable to Calculate. Iron [Mass/volume] in Serum or Plasma 2024-08-28 06:44:11 F Recollect - Hemolyzed specimen,Recollect - Hemolyzed specimen,Recollect - Hemolyzed specimen Iron binding capacity.unsaturate d [Mass/volume] in Serum or Plasma 2024-08-28 06:44:11 F Recollect - Hemolyzed specimen,Recollect - Hemolyzed specimen,Recollect - Hemolyzed specimen Iron [Mass/volume] in Serum or Plasma 2024-08-28 06:44:11 F Recollect - Hemolyzed specimen Iron binding capacity.unsaturate d [Mass/volume] in Serum or Plasma 2024-08-28 06:44:11 F Recollect - Hemolyzed specimen Iron [Mass/volume] in Serum or Plasma 2024-08-28 06:44:11 F Recollect - Hemolyzed specimen Iron binding capacity.unsaturate d [Mass/volume] in Serum or Plasma 2024-08-28 06:44:11 F Recollect - Hemolyzed specimen Iron [Mass/volume] in Serum or Plasma 2024-08-28 06:44:11 F Recollect - Hemolyzed specimen Iron binding capacity.unsaturate d [Mass/volume] in Serum or Plasma 2024-08-28 06:44:11 F Recollect - Hemolyzed specimen IRON SATURATION 2024-08-04 06:39:16 25 % F 21.0-49.0 TIBC 2024-08-04 06:39:16 184 ug/dL F 250.0-425.0 IRON SATURATION 2024-08-04 06:39:16 25 % F 21.0-49.0 TIBC 2024-08-04 06:39:16 184 ug/dL F 250.0-425.0 Iron [Mass/volume] in Serum or Plasma 2024-08-04 06:36:57 46 ug/dL F 65.0-175.0 Iron binding capacity.unsaturate d [Mass/volume] in Serum or Plasma 2024-08-04 06:36:57 138 ug/dL F 75.0-360.0 Iron [Mass/volume] in Serum or Plasma 2024-08-04 06:36:57 46 ug/dL F 65.0-175.0 Iron binding capacity.unsaturate d [Mass/volume] in Serum or Plasma 2024-08-04 06:36:57 138 ug/dL F 75.0-360.0 Ferritin [Mass/volume] in Serum or Plasma 2024-08-03 18:44:23 446 ng/mL F 22.0-322.0 Ferritin [Mass/volume] in Serum or Plasma 2024-08-03 18:44:23 446 ng/mL F 22.0-322.0 HCT CALC HGBX3 2024-08-03 14:28:49 28.5 % F 42.0-52.0 HCT CALC HGBX3 2024-08-03 14:28:49 28.5 % F 42.0-52.0 Erythrocyte distribution width [Ratio] by Automated count 2024-08-03 14:28:10 15.5 % F 11.0-15.0 Hemoglobin [Mass/volume] in Blood 2024-08-03 14:28:10 9.5 g/dL F 14.0-18.0 MCV [Entitic volume] by Automated count 2024-08-03 14:28:10 93.8 fL F 80.0-100.0 Erythrocytes [#/volume] in Blood by Automated count 2024-08-03 14:28:10 3.25 x 10^6 cells/uL F 4.6-6.2 Platelets [#/volume] in Blood by Automated count 2024-08-03 14:28:10 232 x 10^3 cells/uL F 140.0-450.0 MCHC [Mass/volume] by Automated count 2024-08-03 14:28:10 31.3 g/dL F 29.6-35.3 Hematocrit [Volume Fraction] of Blood by Automated count 2024-08-03 14:28:10 30.5 % F 41.0-53.0 MCH [Entitic mass] by Automated count 2024-08-03 14:28:10 29.3 pg F 25.9-34.2 Reticulocytes/100 erythrocytes in Blood by Automated count 2024-08-03 14:28:10 2.2 % F 0.7-2.5 Erythrocytes [#/volume] in Blood by Automated count 2024-08-03 14:28:10 3.25 x 10^6 cells/uL F 4.6-6.2 Erythrocyte distribution width [Ratio] by Automated count 2024-08-03 14:28:10 15.5 % F 11.0-15.0 Hematocrit [Volume Fraction] of Blood by Automated count 2024-08-03 14:28:10 30.5 % F 41.0-53.0 Hemoglobin [Mass/volume] in Blood 2024-08-03 14:28:10 9.5 g/dL F 14.0-18.0 MCV [Entitic volume] by Automated count 2024-08-03 14:28:10 93.8 fL F 80.0-100.0 MCH [Entitic mass] by Automated count 2024-08-03 14:28:10 29.3 pg F 25.9-34.2 MCHC [Mass/volume] by Automated count 2024-08-03 14:28:10 31.3 g/dL F 29.6-35.3 Platelets [#/volume] in Blood by Automated count 2024-08-03 14:28:10 232 x 10^3 cells/uL F 140.0-450.0 Reticulocytes/100 erythrocytes in Blood by Automated count 2024-08-03 14:28:10 2.2 % F 0.7-2.5 IRON SATURATION 2024-06-25 18:59:56 27 % F 21.0-49.0 TIBC 2024-06-25 18:59:56 257 ug/dL F 250.0-425.0 IRON SATURATION 2024-06-25 18:59:56 27 % F 21.0-49.0 TIBC 2024-06-25 18:59:56 257 ug/dL F 250.0-425.0 IRON SATURATION 2024-06-25 18:59:56 27 % F 21.0-49.0 TIBC 2024-06-25 18:59:56 257 ug/dL F 250.0-425.0 TIBC 2024-06-25 18:59:56 257 ug/dL F 250.0-425.0 IRON SATURATION 2024-06-25 18:59:56 27 % F 21.0-49.0 Iron [Mass/volume] in Serum or Plasma 2024-06-25 18:57:14 70 ug/dL F 65.0-175.0 Iron binding capacity.unsaturate d [Mass/volume] in Serum or Plasma 2024-06-25 18:57:14 187 ug/dL F 75.0-360.0 Iron [Mass/volume] in Serum or Plasma 2024-06-25 18:57:14 70 ug/dL F 65.0-175.0 Iron binding capacity.unsaturate d [Mass/volume] in Serum or Plasma 2024-06-25 18:57:14 187 ug/dL F 75.0-360.0 Iron [Mass/volume] in Serum or Plasma 2024-06-25 18:57:14 70 ug/dL F 65.0-175.0 Iron binding capacity.unsaturate d [Mass/volume] in Serum or Plasma 2024-06-25 18:57:14 187 ug/dL F 75.0-360.0 Iron [Mass/volume] in Serum or Plasma 2024-06-25 18:57:14 70 ug/dL F 65.0-175.0 Iron binding capacity.unsaturate d [Mass/volume] in Serum or Plasma 2024-06-25 18:57:14 187 ug/dL F 75.0-360.0 HCT CALC HGBX3 2024-06-25 03:00:06 28.2 % F 42.0-52.0 HCT CALC HGBX3 2024-06-25 03:00:06 28.2 % F 42.0-52.0 HCT CALC HGBX3 2024-06-25 03:00:06 28.2 % F 42.0-52.0 HCT CALC HGBX3 2024-06-25 03:00:06 28.2 % F 42.0-52.0 Reticulocytes/100 erythrocytes in Blood by Automated count 2024-06-25 02:59:06 1.92 % F 0.7-2.5 Erythrocyte distribution width [Ratio] by Automated count 2024-06-25 02:59:06 15 % F 11.0-15.0 Hemoglobin [Mass/volume] in Blood 2024-06-25 02:59:06 9.4 g/dL F 14.0-18.0 Platelets [#/volume] in Blood by Automated count 2024-06-25 02:59:06 188 x 10^3 cells/uL F 140.0-450.0 MCH [Entitic mass] by Automated count 2024-06-25 02:59:06 30.6 pg F 25.9-34.2 MCHC [Mass/volume] by Automated count 2024-06-25 02:59:06 31.7 g/dL F 29.6-35.3 Erythrocytes [#/volume] in Blood by Automated count 2024-06-25 02:59:06 3.08 x 10^6 cells/uL F 4.6-6.2 Hematocrit [Volume Fraction] of Blood by Automated count 2024-06-25 02:59:06 29.7 % F 41.0-53.0 MCV [Entitic volume] by Automated count 2024-06-25 02:59:06 96.5 fL F 80.0-100.0 Hemoglobin [Mass/volume] in Blood 2024-06-25 02:59:06 9.4 g/dL F 14.0-18.0 Platelets [#/volume] in Blood by Automated count 2024-06-25 02:59:06 188 x 10^3 cells/uL F 140.0-450.0 Erythrocytes [#/volume] in Blood by Automated count 2024-06-25 02:59:06 3.08 x 10^6 cells/uL F 4.6-6.2 MCV [Entitic volume] by Automated count 2024-06-25 02:59:06 96.5 fL F 80.0-100.0 Erythrocyte distribution width [Ratio] by Automated count 2024-06-25 02:59:06 15 % F 11.0-15.0 Reticulocytes/100 erythrocytes in Blood by Automated count 2024-06-25 02:59:06 1.92 % F 0.7-2.5 MCH [Entitic mass] by Automated count 2024-06-25 02:59:06 30.6 pg F 25.9-34.2 MCHC [Mass/volume] by Automated count 2024-06-25 02:59:06 31.7 g/dL F 29.6-35.3 Hematocrit [Volume Fraction] of Blood by Automated count 2024-06-25 02:59:06 29.7 % F 41.0-53.0 Erythrocyte distribution width [Ratio] by Automated count 2024-06-25 02:59:06 15 % F 11.0-15.0 Erythrocytes [#/volume] in Blood by Automated count 2024-06-25 02:59:06 3.08 x 10^6 cells/uL F 4.6-6.2 Hematocrit [Volume Fraction] of Blood by Automated count 2024-06-25 02:59:06 29.7 % F 41.0-53.0 Hemoglobin [Mass/volume] in Blood 2024-06-25 02:59:06 9.4 g/dL F 14.0-18.0 MCV [Entitic volume] by Automated count 2024-06-25 02:59:06 96.5 fL F 80.0-100.0 MCHC [Mass/volume] by Automated count 2024-06-25 02:59:06 31.7 g/dL F 29.6-35.3 MCH [Entitic mass] by Automated count 2024-06-25 02:59:06 30.6 pg F 25.9-34.2 Platelets [#/volume] in Blood by Automated count 2024-06-25 02:59:06 188 x 10^3 cells/uL F 140.0-450.0 Reticulocytes/100 erythrocytes in Blood by Automated count 2024-06-25 02:59:06 1.92 % F 0.7-2.5 MCH [Entitic mass] by Automated count 2024-06-25 02:59:06 30.6 pg F 25.9-34.2 Platelets [#/volume] in Blood by Automated count 2024-06-25 02:59:06 188 x 10^3 cells/uL F 140.0-450.0 Erythrocytes [#/volume] in Blood by Automated count 2024-06-25 02:59:06 3.08 x 10^6 cells/uL F 4.6-6.2 Hemoglobin [Mass/volume] in Blood 2024-06-25 02:59:06 9.4 g/dL F 14.0-18.0 MCV [Entitic volume] by Automated count 2024-06-25 02:59:06 96.5 fL F 80.0-100.0 Hematocrit [Volume Fraction] of Blood by Automated count 2024-06-25 02:59:06 29.7 % F 41.0-53.0 Erythrocyte distribution width [Ratio] by Automated count 2024-06-25 02:59:06 15 % F 11.0-15.0 Reticulocytes/100 erythrocytes in Blood by Automated count 2024-06-25 02:59:06 1.92 % F 0.7-2.5 MCHC [Mass/volume] by Automated count 2024-06-25 02:59:06 31.7 g/dL F 29.6-35.3 Ferritin [Mass/volume] in Serum or Plasma 2024-06-23 22:07:58 F CANCELED - TEST CANCELED Ferritin [Mass/volume] in Serum or Plasma 2024-06-23 22:07:58 F CANCELED - TEST CANCELED Ferritin [Mass/volume] in Serum or Plasma 2024-06-23 22:07:58 F CANCELED - TEST CANCELED,CANCELED - TEST CANCELED Ferritin [Mass/volume] in Serum or Plasma 2024-06-23 22:07:58 F CANCELED - TEST CANCELED IRON SATURATION 2024-04-29 07:18:37 31 % F 21.0-49.0 TIBC 2024-04-29 07:18:37 250 ug/dL F 250.0-425.0 IRON SATURATION 2024-04-29 07:18:37 31 % F 21.0-49.0 TIBC 2024-04-29 07:18:37 250 ug/dL F 250.0-425.0 Iron [Mass/volume] in Serum or Plasma 2024-04-29 07:04:12 78 ug/dL F 65.0-175.0 Iron binding capacity.unsaturate d [Mass/volume] in Serum or Plasma 2024-04-29 07:04:12 172 ug/dL F 75.0-360.0 Iron [Mass/volume] in Serum or Plasma 2024-04-29 07:04:12 78 ug/dL F 65.0-175.0 Iron binding capacity.unsaturate d [Mass/volume] in Serum or Plasma 2024-04-29 07:04:12 172 ug/dL F 75.0-360.0 Ferritin [Mass/volume] in Serum or Plasma 2024-04-29 00:41:15 592 ng/mL F 22.0-322.0 Ferritin [Mass/volume] in Serum or Plasma 2024-04-29 00:41:15 592 ng/mL F 22.0-322.0 HCT CALC HGBX3 2024-04-28 14:13:07 28.2 % F 42.0-52.0 HCT CALC HGBX3 2024-04-28 14:13:07 28.2 % F 42.0-52.0 Reticulocytes/100 erythrocytes in Blood by Automated count 2024-04-28 14:12:12 2.78 % F 0.7-2.5 Hemoglobin [Mass/volume] in Blood 2024-04-28 14:12:12 9.4 g/dL F 14.0-18.0 Hematocrit [Volume Fraction] of Blood by Automated count 2024-04-28 14:12:12 29.3 % F 41.0-53.0 Erythrocyte distribution width [Ratio] by Automated count 2024-04-28 14:12:12 16.9 % F 11.0-15.0 Platelets [#/volume] in Blood by Automated count 2024-04-28 14:12:12 119 x 10^3 cells/uL F 140.0-450.0 MCHC [Mass/volume] by Automated count 2024-04-28 14:12:12 32.2 g/dL F 29.6-35.3 Erythrocytes [#/volume] in Blood by Automated count 2024-04-28 14:12:12 2.97 x 10^6 cells/uL F 4.6-6.2 Reticulocytes/100 erythrocytes in Blood by Automated count 2024-04-28 14:12:12 2.78 % F 0.7-2.5 Erythrocyte distribution width [Ratio] by Automated count 2024-04-28 14:12:12 16.9 % F 11.0-15.0 Hemoglobin [Mass/volume] in Blood 2024-04-28 14:12:12 9.4 g/dL F 14.0-18.0 Platelets [#/volume] in Blood by Automated count 2024-04-28 14:12:12 119 x 10^3 cells/uL F 140.0-450.0 MCHC [Mass/volume] by Automated count 2024-04-28 14:12:12 32.2 g/dL F 29.6-35.3 Hematocrit [Volume Fraction] of Blood by Automated count 2024-04-28 14:12:12 29.3 % F 41.0-53.0 Erythrocytes [#/volume] in Blood by Automated count 2024-04-28 14:12:12 2.97 x 10^6 cells/uL F 4.6-6.2 MCH [Entitic mass] by Automated count 2024-04-28 14:12:10 31.8 pg F 25.9-34.2 MCV [Entitic volume] by Automated count 2024-04-28 14:12:10 98.7 fL F 80.0-100.0 MCH [Entitic mass] by Automated count 2024-04-28 14:12:10 31.8 pg F 25.9-34.2 MCV [Entitic volume] by Automated count 2024-04-28 14:12:10 98.7 fL F 80.0-100.0 Ferritin [Mass/volume] in Serum or Plasma 2024-03-28 08:18:29 528 ng/mL F 22.0-322.0 IRON SATURATION 2024-03-26 11:07:08 31 % F 21.0-49.0 TIBC 2024-03-26 11:07:08 248 ug/dL F 250.0-425.0 Iron [Mass/volume] in Serum or Plasma 2024-03-26 08:21:45 78 ug/dL F 65.0-175.0 Iron binding capacity.unsaturate d [Mass/volume] in Serum or Plasma 2024-03-26 08:21:45 170 ug/dL F 75.0-360.0 HCT CALC HGBX3 2024-03-25 21:36:09 31.2 % F 42.0-52.0 Reticulocytes/100 erythrocytes in Blood by Automated count 2024-03-25 21:35:29 4.43 % F 0.7-2.5 MCH [Entitic mass] by Automated count 2024-03-25 21:35:29 30.6 pg F 25.9-34.2 MCV [Entitic volume] by Automated count 2024-03-25 21:35:29 95.6 fL F 80.0-100.0 Erythrocyte distribution width [Ratio] by Automated count 2024-03-25 21:35:26 17.5 % F 11.0-15.0 Hemoglobin [Mass/volume] in Blood 2024-03-25 21:35:26 10.4 g/dL F 14.0-18.0 Platelets [#/volume] in Blood by Automated count 2024-03-25 21:35:26 203 x 10^3 cells/uL F 140.0-450.0 MCHC [Mass/volume] by Automated count 2024-03-25 21:35:26 32 g/dL F 29.6-35.3 Erythrocytes [#/volume] in Blood by Automated count 2024-03-25 21:35:26 3.4 x 10^6 cells/uL F 4.6-6.2 Hematocrit [Volume Fraction] of Blood by Automated count 2024-03-25 21:35:26 32.5 % F 41.0-53.0 IRON SATURATION 2024-03-07 09:48:25 32 % F 21.0-49.0 TIBC 2024-03-07 09:48:25 222 ug/dL F 250.0-425.0 IRON SATURATION 2024-03-07 09:48:25 32 % F 21.0-49.0 TIBC 2024-03-07 09:48:25 222 ug/dL F 250.0-425.0 Ferritin [Mass/volume] in Serum or Plasma 2024-03-07 08:23:18 533 ng/mL F 22.0-322.0 Ferritin [Mass/volume] in Serum or Plasma 2024-03-07 08:23:18 533 ng/mL F 22.0-322.0 Iron [Mass/volume] in Serum or Plasma 2024-03-07 [...] HGBX3 2024-03-07 03:10:02 30.6 % F 42.0-52.0 Reticulocytes/100 erythrocytes in Blood by Automated count 2024-03-07 03:08:24 1.73 % F 0.7-2.5 Erythrocyte distribution width [Ratio] by Automated count 2024-03-07 03:08:24 16.1 % F 11.0-15.0 Hemoglobin [Mass/volume] in Blood 2024-03-07 03:08:24 10.2 g/dL F 14.0-18.0 Platelets [#/volume] in Blood by Automated count 2024-03-07 03:08:24 192 x 10^3 cells/uL F 140.0-450.0 MCH [Entitic mass] by Automated count 2024-03-07 03:08:24 31.2 pg F 25.9-34.2 MCHC [Mass/volume] by Automated count 2024-03-07 03:08:24 32.9 g/dL F 29.6-35.3 Erythrocytes [#/volume] in Blood by Automated count 2024-03-07 03:08:24 3.27 x 10^6 cells/uL F 4.6-6.2 Hematocrit [Volume Fraction] of Blood by Automated count 2024-03-07 03:08:24 31 % F 41.0-53.0 MCV [Entitic volume] by Automated count 2024-03-07 03:08:24 94.7 fL F 80.0-100.0 Reticulocytes/100 erythrocytes in Blood by Automated count 2024-03-07 03:08:24 1.73 % F 0.7-2.5 Erythrocyte distribution width [Ratio] by Automated count 2024-03-07 03:08:24 16.1 % F 11.0-15.0 Platelets [#/volume] in Blood by Automated count 2024-03-07 03:08:24 192 x 10^3 cells/uL F 140.0-450.0 Hemoglobin [Mass/volume] in Blood 2024-03-07 03:08:24 10.2 g/dL F 14.0-18.0 MCH [Entitic mass] by Automated count 2024-03-07 03:08:24 31.2 pg F 25.9-34.2 MCHC [Mass/volume] by Automated count 2024-03-07 03:08:24 32.9 g/dL F 29.6-35.3 Erythrocytes [#/volume] in Blood by Automated count 2024-03-07 03:08:24 3.27 x 10^6 cells/uL F 4.6-6.2 Hematocrit [Volume Fraction] of Blood by Automated count 2024-03-07 03:08:24 31 % F 41.0-53.0 MCV [Entitic volume] by Automated count 2024-03-07 03:08:24 94.7 fL F 80.0-100.0 IRON SATURATION 2024-01-29 09:09:00 18 % F [...] count 2024-01-29 00:28:24 2.43 % F 0.7-2.5 Erythrocyte distribution width [Ratio] by Automated count 2024-01-29 00:28:24 17.2 % F 11.0-15.0 Hemoglobin [Mass/volume] in Blood 2024-01-29 00:28:24 10.8 g/dL F 14.0-18.0 Platelets [#/volume] in Blood by Automated count 2024-01-29 00:28:24 164 x 10^3 cells/uL F 140.0-450.0 Erythrocytes [#/volume] in Blood by Automated count 2024-01-29 00:28:24 3.5 x 10'6 cells/uL F 4.6-6.2 Hematocrit [Volume Fraction] of Blood by Automated count 2024-01-29 00:28:24 33.9 % F 41.0-53.0 MCV [Entitic volume] by Automated count 2024-01-29 00:28:24 96.8 fL F 80.0-100.0 IRON SATURATION 2024-01-01 08:52:09 27 % F 21.0-49.0 TIBC 2024-01-01 08:52:09 251 ug/dL F 250.0-425.0 IRON SATURATION 2024-01-01 08:52:09 27 % F 21.0-49.0 TIBC 2024-01-01 08:52:09 251 ug/dL F 250.0-425.0 Iron [Mass/volume] in Serum or Plasma 2024-01-01 [...] HGBX3 2024-01-01 04:53:16 29.1 % F 42.0-52.0 Reticulocytes/100 erythrocytes in Blood by Automated count 2024-01-01 04:52:13 1.69 % F 0.7-2.5 Erythrocyte distribution width [Ratio] by Automated count 2024-01-01 04:52:13 16 % F 11.0-15.0 Platelets [#/volume] in Blood by Automated count 2024-01-01 04:52:13 158 x 10^3 cells/uL F 140.0-450.0 Hemoglobin [Mass/volume] in Blood 2024-01-01 04:52:13 9.7 g/dL F 14.0-18.0 MCH [Entitic mass] by Automated count 2024-01-01 04:52:13 31.6 pg F 25.9-34.2 MCHC [Mass/volume] by Automated count 2024-01-01 04:52:13 31.9 g/dL F 29.6-35.3 Hematocrit [Volume Fraction] of Blood by Automated count 2024-01-01 04:52:13 30.3 % F 41.0-53.0 Erythrocytes [#/volume] in Blood by Automated count 2024-01-01 04:52:13 3.07 x 10'6 cells/uL F 4.6-6.2 MCV [Entitic volume] by Automated count 2024-01-01 04:52:13 98.9 fL F 80.0-100.0 Reticulocytes/100 erythrocytes in Blood by Automated count 2024-01-01 04:52:13 1.69 % F 0.7-2.5 Erythrocyte distribution width [Ratio] by Automated count 2024-01-01 04:52:13 16 % F 11.0-15.0 Hemoglobin [Mass/volume] in Blood 2024-01-01 04:52:13 9.7 g/dL F 14.0-18.0 Platelets [#/volume] in Blood by Automated count 2024-01-01 04:52:13 158 x 10^3 cells/uL F 140.0-450.0 MCH [Entitic mass] by Automated count 2024-01-01 04:52:13 31.6 pg F 25.9-34.2 MCHC [Mass/volume] by Automated count 2024-01-01 04:52:13 31.9 g/dL F 29.6-35.3 Erythrocytes [#/volume] in Blood by Automated count 2024-01-01 04:52:13 3.07 x 10'6 cells/uL F 4.6-6.2 Hematocrit [Volume Fraction] of Blood by Automated count 2024-01-01 04:52:13 30.3 % F 41.0-53.0 MCV [Entitic volume] by Automated count 2024-01-01 04:52:13 98.9 fL F 80.0-100.0 Ferritin [Mass/volume] in Serum or Plasma 2024-01-01 01:53:03 F Recollect - Quantity not sufficient Ferritin [Mass/volume] in Serum or Plasma 2024-01-01 01:53:03 F Recollect - Quantity not sufficient Ferritin [Mass/volume] in Serum or Plasma 2023-11-20 07:41:59 489 ng/mL F 22.0-322.0 Ferritin [Mass/volume] in Serum or Plasma 2023-11-20 07:41:59 489 ng/mL F 22.0-322.0 Ferritin [Mass/volume] in Serum or Plasma 2023-11-20 07:41:59 489 ng/mL F 22.0-322.0 IRON SATURATION 2023-11-20 05:05:23 19 % F 21.0-49.0 TIBC 2023-11-20 05:05:23 252 ug/dL F 250.0-425.0 IRON SATURATION 2023-11-20 05:05:23 19 % F 21.0-49.0 TIBC 2023-11-20 05:05:23 252 ug/dL F 250.0-425.0 IRON SATURATION 2023-11-20 05:05:23 19 % F 21.0-49.0 TIBC 2023-11-20 05:05:23 252 ug/dL F 250.0-425.0 Iron binding capacity.unsaturate d [Mass/volume] in Serum or Plasma 2023-11-20 04:55:05 204 ug/dL F 75.0-360.0 Iron [Mass/volume] in Serum or Plasma 2023-11-20 04:55:05 48 ug/dL F 65.0-175.0 Iron [Mass/volume] in Serum or Plasma 2023-11-20 04:55:05 48 ug/dL F 65.0-175.0 Iron binding capacity.unsaturate d [Mass/volume] in Serum or Plasma 2023-11-20 04:55:05 204 ug/dL F 75.0-360.0 Iron [Mass/volume] in Serum or Plasma 2023-11-20 04:55:05 48 ug/dL F 65.0-175.0 Iron binding capacity.unsaturate d [Mass/volume] in Serum or Plasma 2023-11-20 04:55:05 204 ug/dL F 75.0-360.0 HCT CALC HGBX3 2023-11-19 22:37:32 27.3 % F 42.0-52.0 HCT CALC HGBX3 2023-11-19 22:37:32 27.3 % F 42.0-52.0 HCT CALC HGBX3 2023-11-19 22:37:32 27.3 % F 42.0-52.0 Erythrocyte distribution width [Ratio] by Automated count 2023-11-19 22:37:12 17 % F 11.0-15.0 MCHC [Mass/volume] by Automated count 2023-11-19 22:37:12 31.8 g/dL F 29.6-35.3 MCH [Entitic mass] by Automated count 2023-11-19 22:37:12 31 pg F 25.9-34.2 Erythrocytes [#/volume] in Blood by Automated count 2023-11-19 22:37:12 2.94 x 10'6 cells/uL F 4.6-6.2 Hematocrit [Volume Fraction] of Blood by Automated count 2023-11-19 22:37:12 28.7 % F 41.0-53.0 Reticulocytes/100 erythrocytes in Blood by Automated count 2023-11-19 22:37:12 4.05 % F 0.7-2.5 Hemoglobin [Mass/volume] in Blood 2023-11-19 22:37:12 9.1 g/dL F 14.0-18.0 Platelets [#/volume] in Blood by Automated count 2023-11-19 22:37:12 181 x 10^3 cells/uL F 140.0-450.0 MCV [Entitic volume] by Automated count 2023-11-19 22:37:12 97.5 fL F 80.0-100.0 Reticulocytes/100 erythrocytes in Blood by Automated count 2023-11-19 22:37:12 4.05 % F 0.7-2.5 Erythrocyte distribution width [Ratio] by Automated count 2023-11-19 22:37:12 17 % F 11.0-15.0 Hemoglobin [Mass/volume] in Blood 2023-11-19 22:37:12 9.1 g/dL F 14.0-18.0 Platelets [#/volume] in Blood by Automated count 2023-11-19 22:37:12 181 x 10^3 cells/uL F 140.0-450.0 MCH [Entitic mass] by Automated count 2023-11-19 22:37:12 31 pg F 25.9-34.2 MCHC [Mass/volume] by Automated count 2023-11-19 22:37:12 31.8 g/dL F 29.6-35.3 Erythrocytes [#/volume] in Blood by Automated count 2023-11-19 22:37:12 2.94 x 10'6 cells/uL F 4.6-6.2 Hematocrit [Volume Fraction] of Blood by Automated count 2023-11-19 22:37:12 28.7 % F 41.0-53.0 MCV [Entitic volume] by Automated count 2023-11-19 22:37:12 97.5 fL F 80.0-100.0 Reticulocytes/100 erythrocytes in Blood by Automated count 2023-11-19 22:37:12 4.05 % F 0.7-2.5 Erythrocyte distribution width [Ratio] by Automated count 2023-11-19 22:37:12 17 % F 11.0-15.0 Hemoglobin [Mass/volume] in Blood 2023-11-19 22:37:12 9.1 g/dL F 14.0-18.0 Platelets [#/volume] in Blood by Automated count 2023-11-19 22:37:12 181 x 10^3 cells/uL F 140.0-450.0 MCH [Entitic mass] by Automated count 2023-11-19 22:37:12 31 pg F 25.9-34.2 MCHC [Mass/volume] by Automated count 2023-11-19 22:37:12 31.8 g/dL F 29.6-35.3 Erythrocytes [#/volume] in Blood by Automated count 2023-11-19 22:37:12 2.94 x 10'6 cells/uL F 4.6-6.2 Hematocrit [Volume Fraction] of Blood by Automated count 2023-11-19 22:37:12 28.7 % F 41.0-53.0 MCV [Entitic volume] by Automated count 2023-11-19 22:37:12 97.5 fL F 80.0-100.0 Ferritin [Mass/volume] in Serum or Plasma 2023-10-24 [...] HGBX3 2023-10-23 23:03:24 28.5 % F 42.0-52.0 Reticulocytes/100 erythrocytes in Blood by Automated count 2023-10-23 23:02:22 2.27 % F 0.7-2.5 Erythrocyte distribution width [Ratio] by Automated count 2023-10-23 23:02:22 16.4 % F 11.0-15.0 Hemoglobin [Mass/volume] in Blood 2023-10-23 23:02:22 9.5 g/dL F 14.0-18.0 Platelets [#/volume] in Blood by Automated count 2023-10-23 23:02:22 191 x 10^3 cells/uL F 140.0-450.0 MCH [Entitic mass] by Automated count 2023-10-23 23:02:22 31.2 pg F 25.9-34.2 MCHC [Mass/volume] by Automated count 2023-10-23 23:02:22 31.6 g/dL F 29.6-35.3 Erythrocytes [#/volume] in Blood by Automated count 2023-10-23 23:02:22 3.05 x 10'6 cells/uL F 4.6-6.2 Hematocrit [Volume Fraction] of Blood by Automated count 2023-10-23 23:02:22 30.1 % F 41.0-53.0 MCV [Entitic volume] by Automated count 2023-10-23 23:02:22 98.5 fL F 80.0-100.0 Reticulocytes/100 erythrocytes in Blood by Automated count 2023-10-23 23:02:22 2.27 % F 0.7-2.5 Erythrocyte distribution width [Ratio] by Automated count 2023-10-23 23:02:22 16.4 % F 11.0-15.0 Hemoglobin [Mass/volume] in Blood 2023-10-23 23:02:22 9.5 g/dL F 14.0-18.0 Platelets [#/volume] in Blood by Automated count 2023-10-23 23:02:22 191 x 10^3 cells/uL F 140.0-450.0 MCH [Entitic mass] by Automated count 2023-10-23 23:02:22 31.2 pg F 25.9-34.2 MCHC [Mass/volume] by Automated count 2023-10-23 23:02:22 31.6 g/dL F 29.6-35.3 Erythrocytes [#/volume] in Blood by Automated count 2023-10-23 23:02:22 3.05 x 10'6 cells/uL F 4.6-6.2 Hematocrit [Volume Fraction] of Blood by Automated count 2023-10-23 23:02:22 30.1 % F 41.0-53.0 MCV [Entitic volume] by Automated count 2023-10-23 23:02:22 98.5 fL F 80.0-100.0 IRON SATURATION 2023-09-26 07:18:00 25 % F [...] Plasma 2023-09-25 23:13:10 181 ug/dL F 75.0-360.0 Reticulocytes/100 erythrocytes in Blood by Automated count 2023-09-25 13:33:39 3.93 % F 0.7-2.5 Erythrocyte distribution width [Ratio] by Automated count 2023-09-25 13:33:39 17.1 % F 11.0-15.0 Hemoglobin [Mass/volume] in Blood 2023-09-25 13:33:39 12.2 g/dL F 14.0-18.0 Platelets [#/volume] in Blood by Automated count 2023-09-25 13:33:39 172 x 10^3 cells/uL F 140.0-450.0 MCH [Entitic mass] by Automated count 2023-09-25 13:33:39 31.1 pg F 25.9-34.2 MCHC [Mass/volume] by Automated count 2023-09-25 13:33:39 32.1 g/dL F 29.6-35.3 Erythrocytes [#/volume] in Blood by Automated count 2023-09-25 13:33:39 3.91 x 10'6 cells/uL F 4.6-6.2 Hematocrit [Volume Fraction] of Blood by Automated count 2023-09-25 13:33:39 38 % F 41.0-53.0 MCV [Entitic volume] by Automated count 2023-09-25 13:33:39 97.1 fL F 80.0-100.0 Reticulocytes/100 erythrocytes in Blood by Automated count 2023-09-25 13:33:39 3.93 % F 0.7-2.5 Erythrocyte distribution width [Ratio] by Automated count 2023-09-25 13:33:39 17.1 % F 11.0-15.0 Hemoglobin [Mass/volume] in Blood 2023-09-25 13:33:39 12.2 g/dL F 14.0-18.0 Platelets [#/volume] in Blood by Automated count 2023-09-25 13:33:39 172 x 10^3 cells/uL F 140.0-450.0 MCH [Entitic mass] by Automated count 2023-09-25 13:33:39 31.1 pg F 25.9-34.2 MCHC [Mass/volume] by Automated count 2023-09-25 13:33:39 32.1 g/dL F 29.6-35.3 Erythrocytes [#/volume] in Blood by Automated count 2023-09-25 13:33:39 3.91 x 10'6 cells/uL F 4.6-6.2 Hematocrit [Volume Fraction] of Blood by Automated count 2023-09-25 13:33:39 38 % F 41.0-53.0 MCV [Entitic volume] by Automated count 2023-09-25 13:33:39 97.1 fL F 80.0-100.0 IRON SATURATION 2023-08-27 07:09:55 25 % F 21.0-49.0 TIBC 2023-08-27 07:09:55 261 ug/dL F 250.0-425.0 IRON SATURATION 2023-08-27 07:09:55 25 % F 21.0-49.0 TIBC 2023-08-27 07:09:55 261 ug/dL F 250.0-425.0 IRON SATURATION 2023-08-27 07:09:55 25 % F 21.0-49.0 TIBC 2023-08-27 07:09:55 261 ug/dL F 250.0-425.0 IRON SATURATION 2023-08-27 07:09:55 25 % F 21.0-49.0 TIBC 2023-08-27 07:09:55 261 ug/dL F 250.0-425.0 Iron [Mass/volume] in Serum or Plasma 2023-08-27 07:06:48 64 ug/dL F 65.0-175.0 Iron binding capacity.unsaturate d [Mass/volume] in Serum or Plasma 2023-08-27 07:06:48 197 ug/dL F 75.0-360.0 Iron [Mass/volume] in Serum or Plasma 2023-08-27 07:06:48 64 ug/dL F 65.0-175.0 Iron binding capacity.unsaturate d [Mass/volume] in Serum or Plasma 2023-08-27 07:06:48 197 ug/dL F 75.0-360.0 Iron [Mass/volume] in Serum or Plasma 2023-08-27 07:06:48 64 ug/dL F 65.0-175.0 Iron binding capacity.unsaturate d [Mass/volume] in Serum or Plasma 2023-08-27 07:06:48 197 ug/dL F 75.0-360.0 Iron [Mass/volume] in Serum or Plasma 2023-08-27 07:06:48 64 ug/dL F 65.0-175.0 Iron binding capacity.unsaturate d [Mass/volume] in Serum or Plasma 2023-08-27 07:06:48 197 ug/dL F 75.0-360.0 HCT CALC HGBX3 2023-08-27 01:37:20 33.9 % F 42.0-52.0 HCT CALC HGBX3 2023-08-27 01:37:20 33.9 % F 42.0-52.0 HCT CALC HGBX3 2023-08-27 01:37:20 33.9 % F 42.0-52.0 HCT CALC HGBX3 2023-08-27 01:37:20 33.9 % F 42.0-52.0 Reticulocytes/100 erythrocytes in Blood by Automated count 2023-08-27 01:37:12 F CANCELED - TEST CANCELED,UNABLE TO REPORT DUE TO INTERFERRING SUBSTANCES Reticulocytes/100 erythrocytes in Blood by Automated count 2023-08-27 01:37:12 F CANCELED - TEST CANCELED,UNABLE TO REPORT DUE TO INTERFERRING SUBSTANCES Reticulocytes/100 erythrocytes in Blood by Automated count 2023-08-27 01:37:12 F CANCELED - TEST CANCELED,UNABLE TO REPORT DUE TO INTERFERRING SUBSTANCES Reticulocytes/100 erythrocytes in Blood by Automated count 2023-08-27 01:37:12 F CANCELED - TEST CANCELED,UNABLE TO REPORT DUE TO INTERFERRING SUBSTANCES Erythrocyte distribution width [Ratio] by Automated count 2023-08-27 01:36:52 18.2 % F 11.0-15.0 Hemoglobin [Mass/volume] in Blood 2023-08-27 01:36:52 11.3 g/dL F 14.0-18.0 Platelets [#/volume] in Blood by Automated count 2023-08-27 01:36:52 148 x 10^3 cells/uL F 140.0-450.0 MCH [Entitic mass] by Automated count 2023-08-27 01:36:52 31.6 pg F 25.9-34.2 MCHC [Mass/volume] by Automated count 2023-08-27 01:36:52 31.5 g/dL F 29.6-35.3 Erythrocytes [#/volume] in Blood by Automated count 2023-08-27 01:36:52 3.57 x 10'6 cells/uL F 4.6-6.2 Hematocrit [Volume Fraction] of Blood by Automated count 2023-08-27 01:36:52 35.9 % F 41.0-53.0 MCV [Entitic volume] by Automated count 2023-08-27 01:36:52 100.5 fL F 80.0-100.0 Erythrocyte distribution width [Ratio] by Automated count 2023-08-27 01:36:52 18.2 % F 11.0-15.0 Hemoglobin [Mass/volume] in Blood 2023-08-27 01:36:52 11.3 g/dL F 14.0-18.0 MCH [Entitic mass] by Automated count 2023-08-27 01:36:52 31.6 pg F 25.9-34.2 MCHC [Mass/volume] by Automated count 2023-08-27 01:36:52 31.5 g/dL F 29.6-35.3 MCV [Entitic volume] by Automated count 2023-08-27 01:36:52 100.5 fL F 80.0-100.0 Platelets [#/volume] in Blood by Automated count 2023-08-27 01:36:52 148 x 10^3 cells/uL F 140.0-450.0 Erythrocytes [#/volume] in Blood by Automated count 2023-08-27 01:36:52 3.57 x 10'6 cells/uL F 4.6-6.2 Hematocrit [Volume Fraction] of Blood by Automated count 2023-08-27 01:36:52 35.9 % F 41.0-53.0 Erythrocyte distribution width [Ratio] by Automated count 2023-08-27 01:36:52 18.2 % F 11.0-15.0 Hemoglobin [Mass/volume] in Blood 2023-08-27 01:36:52 11.3 g/dL F 14.0-18.0 Platelets [#/volume] in Blood by Automated count 2023-08-27 01:36:52 148 x 10^3 cells/uL F 140.0-450.0 MCH [Entitic mass] by Automated count 2023-08-27 01:36:52 31.6 pg F 25.9-34.2 MCHC [Mass/volume] by Automated count 2023-08-27 01:36:52 31.5 g/dL F 29.6-35.3 Erythrocytes [#/volume] in Blood by Automated count 2023-08-27 01:36:52 3.57 x 10'6 cells/uL F 4.6-6.2 Hematocrit [Volume Fraction] of Blood by Automated count 2023-08-27 01:36:52 35.9 % F 41.0-53.0 MCV [Entitic volume] by Automated count 2023-08-27 01:36:52 100.5 fL F 80.0-100.0 Erythrocyte distribution width [Ratio] by Automated count 2023-08-27 01:36:52 18.2 % F 11.0-15.0 Platelets [#/volume] in Blood by Automated count 2023-08-27 01:36:52 148 x 10^3 cells/uL F 140.0-450.0 Hemoglobin [Mass/volume] in Blood 2023-08-27 01:36:52 11.3 g/dL F 14.0-18.0 MCH [Entitic mass] by Automated count 2023-08-27 01:36:52 31.6 pg F 25.9-34.2 MCHC [Mass/volume] by Automated count 2023-08-27 01:36:52 31.5 g/dL F 29.6-35.3 Erythrocytes [#/volume] in Blood by Automated count 2023-08-27 01:36:52 3.57 x 10'6 cells/uL F 4.6-6.2 Hematocrit [Volume Fraction] of Blood by Automated count 2023-08-27 01:36:52 35.9 % F 41.0-53.0 MCV [Entitic volume] by Automated count 2023-08-27 01:36:52 100.5 fL F 80.0-100.0 Ferritin [Mass/volume] in Serum or Plasma 2023-08-26 20:27:17 370 ng/mL F 22.0-322.0 Ferritin [Mass/volume] in Serum or Plasma 2023-08-26 20:27:17 370 ng/mL F 22.0-322.0 Ferritin [Mass/volume] in Serum or Plasma 2023-08-26 20:27:17 370 ng/mL F 22.0-322.0 Ferritin [Mass/volume] in Serum or Plasma 2023-08-26 20:27:17 370 ng/mL F 22.0-322.0 IRON SATURATION 2023-07-25 06:48:06 22 % F 21.0-49.0 TIBC 2023-07-25 06:48:06 277 ug/dL F 250.0-425.0 IRON SATURATION 2023-07-25 06:48:06 22 % F 21.0-49.0 TIBC 2023-07-25 06:48:06 277 ug/dL F 250.0-425.0 Iron [Mass/volume] in Serum or Plasma 2023-07-25 06:41:05 61 ug/dL F 65.0-175.0 Iron binding capacity.unsaturate d [Mass/volume] in Serum or Plasma 2023-07-25 06:41:05 216 ug/dL F 75.0-360.0 Iron [Mass/volume] in Serum or Plasma 2023-07-25 06:41:05 61 ug/dL F 65.0-175.0 Iron binding capacity.unsaturate d [Mass/volume] in Serum or Plasma 2023-07-25 06:41:05 216 ug/dL F 75.0-360.0 Ferritin [Mass/volume] in Serum or Plasma 2023-07-25 03:52:10 439 ng/mL F 22.0-322.0 Ferritin [Mass/volume] in Serum or Plasma 2023-07-25 03:52:10 439 ng/mL F 22.0-322.0 HCT CALC HGBX3 2023-07-24 22:30:01 28.5 % F 42.0-52.0 HCT CALC HGBX3 2023-07-24 22:30:01 28.5 % F 42.0-52.0 Reticulocytes/100 erythrocytes in Blood by Automated count 2023-07-24 22:29:42 6.37 % F 0.7-2.5 Erythrocyte distribution width [Ratio] by Automated count 2023-07-24 22:29:42 16.4 % F 11.0-15.0 Hemoglobin [Mass/volume] in Blood 2023-07-24 22:29:42 9.5 g/dL F 14.0-18.0 Platelets [#/volume] in Blood by Automated count 2023-07-24 22:29:42 142 x 10^3 cells/uL F 140.0-450.0 MCH [Entitic mass] by Automated count 2023-07-24 22:29:42 32.1 pg F 25.9-34.2 MCHC [Mass/volume] by Automated count 2023-07-24 22:29:42 32.7 g/dL F 29.6-35.3 Erythrocytes [#/volume] in Blood by Automated count 2023-07-24 22:29:42 2.95 x 10'6 cells/uL F 4.6-6.2 Hematocrit [Volume Fraction] of Blood by Automated count 2023-07-24 22:29:42 28.9 % F 41.0-53.0 MCV [Entitic volume] by Automated count 2023-07-24 22:29:42 98.3 fL F 80.0-100.0 Reticulocytes/100 erythrocytes in Blood by Automated count 2023-07-24 22:29:42 6.37 % F 0.7-2.5 Erythrocyte distribution width [Ratio] by Automated count 2023-07-24 22:29:42 16.4 % F 11.0-15.0 Platelets [#/volume] in Blood by Automated count 2023-07-24 22:29:42 142 x 10^3 cells/uL F 140.0-450.0 Hemoglobin [Mass/volume] in Blood 2023-07-24 22:29:42 9.5 g/dL F 14.0-18.0 MCH [Entitic mass] by Automated count 2023-07-24 22:29:42 32.1 pg F 25.9-34.2 MCHC [Mass/volume] by Automated count 2023-07-24 22:29:42 32.7 g/dL F 29.6-35.3 Erythrocytes [#/volume] in Blood by Automated count 2023-07-24 22:29:42 2.95 x 10'6 cells/uL F 4.6-6.2 Hematocrit [Volume Fraction] of Blood by Automated count 2023-07-24 22:29:42 28.9 % F 41.0-53.0 MCV [Entitic volume] by Automated count 2023-07-24 22:29:42 98.3 fL F 80.0-100.0 IRON SATURATION 2023-06-29 01:31:07 36 % F 21.0-49.0 TIBC 2023-06-29 01:31:07 250 ug/dL F 250.0-425.0 TIBC 2023-06-29 01:31:07 250 ug/dL F 250.0-425.0 IRON SATURATION 2023-06-29 01:31:07 36 % F 21.0-49.0 IRON SATURATION 2023-06-29 01:31:07 36 % F 21.0-49.0 TIBC 2023-06-29 01:31:07 250 ug/dL F 250.0-425.0 Iron [Mass/volume] in Serum or Plasma 2023-06-29 [...] Plasma 2023-06-29 01:29:15 160 ug/dL F 75.0-360.0 Ferritin [Mass/volume] in Serum or Plasma 2023-06-28 [...] count 2023-06-28 15:13:34 1.75 % F 0.7-2.5 Erythrocyte distribution width [Ratio] by Automated count 2023-06-28 15:13:34 15.7 % F 11.0-15.0 Hemoglobin [Mass/volume] in Blood 2023-06-28 15:13:34 9.5 g/dL F 14.0-18.0 Platelets [#/volume] in Blood by Automated count 2023-06-28 15:13:34 156 x 10^3 cells/uL F 140.0-450.0 MCH [Entitic mass] by Automated count 2023-06-28 15:13:34 32 pg F 25.9-34.2 MCHC [Mass/volume] by Automated count 2023-06-28 15:13:34 32.8 g/dL F 29.6-35.3 Erythrocytes [#/volume] in Blood by Automated count 2023-06-28 15:13:34 2.97 x 10'6 cells/uL F 4.6-6.2 Hematocrit [Volume Fraction] of Blood by Automated count 2023-06-28 15:13:34 29 % F 41.0-53.0 MCV [Entitic volume] by Automated count 2023-06-28 15:13:34 97.7 fL F 80.0-100.0 Erythrocyte distribution width [Ratio] by Automated count 2023-06-28 15:13:34 15.7 % F 11.0-15.0 Hemoglobin [Mass/volume] in Blood 2023-06-28 15:13:34 9.5 g/dL F 14.0-18.0 Platelets [#/volume] in Blood by Automated count 2023-06-28 15:13:34 156 x 10^3 cells/uL F 140.0-450.0 Hematocrit [Volume Fraction] of Blood by Automated count 2023-06-28 15:13:34 29 % F 41.0-53.0 Erythrocytes [#/volume] in Blood by Automated count 2023-06-28 15:13:34 2.97 x 10'6 cells/uL F 4.6-6.2 Reticulocytes/100 erythrocytes in Blood by Automated count 2023-06-28 15:13:34 1.75 % F 0.7-2.5 MCH [Entitic mass] by Automated count 2023-06-28 15:13:34 32 pg F 25.9-34.2 MCHC [Mass/volume] by Automated count 2023-06-28 15:13:34 32.8 g/dL F 29.6-35.3 MCV [Entitic volume] by Automated count 2023-06-28 15:13:34 97.7 fL F 80.0-100.0 Reticulocytes/100 erythrocytes in Blood by Automated count 2023-06-28 15:13:34 1.75 % F 0.7-2.5 Erythrocyte distribution width [Ratio] by Automated count 2023-06-28 15:13:34 15.7 % F 11.0-15.0 Hemoglobin [Mass/volume] in Blood 2023-06-28 15:13:34 9.5 g/dL F 14.0-18.0 Platelets [#/volume] in Blood by Automated count 2023-06-28 15:13:34 156 x 10^3 cells/uL F 140.0-450.0 MCH [Entitic mass] by Automated count 2023-06-28 15:13:34 32 pg F 25.9-34.2 MCHC [Mass/volume] by Automated count 2023-06-28 15:13:34 32.8 g/dL F 29.6-35.3 Erythrocytes [#/volume] in Blood by Automated count 2023-06-28 15:13:34 2.97 x 10'6 cells/uL F 4.6-6.2 Hematocrit [Volume Fraction] of Blood by Automated count 2023-06-28 15:13:34 29 % F 41.0-53.0 MCV [Entitic volume] by Automated count 2023-06-28 15:13:34 97.7 fL F 80.0-100.0 IRON SATURATION 2023-05-24 07:49:48 24 % F 21.0-49.0 TIBC 2023-05-24 07:49:48 214 ug/dL F 250.0-425.0 IRON SATURATION 2023-05-24 07:49:48 24 % F 21.0-49.0 TIBC 2023-05-24 07:49:48 214 ug/dL F 250.0-425.0 IRON SATURATION 2023-05-24 07:49:48 24 % F 21.0-49.0 TIBC 2023-05-24 07:49:48 214 ug/dL F 250.0-425.0 Iron [Mass/volume] in Serum or Plasma 2023-05-24 07:48:36 52 ug/dL F 65.0-175.0 Iron binding capacity.unsaturate d [Mass/volume] in Serum or Plasma 2023-05-24 07:48:36 162 ug/dL F 75.0-360.0 Iron [Mass/volume] in Serum or Plasma 2023-05-24 07:48:36 52 ug/dL F 65.0-175.0 Iron binding capacity.unsaturate d [Mass/volume] in Serum or Plasma 2023-05-24 07:48:36 162 ug/dL F 75.0-360.0 Iron binding capacity.unsaturate d [Mass/volume] in Serum or Plasma 2023-05-24 07:48:36 162 ug/dL F 75.0-360.0 Iron [Mass/volume] in Serum or Plasma 2023-05-24 07:48:36 52 ug/dL F 65.0-175.0 Ferritin [Mass/volume] in Serum or Plasma 2023-05-23 03:10:41 535 ng/mL F 22.0-322.0 Ferritin [Mass/volume] in Serum or Plasma 2023-05-23 03:10:41 535 ng/mL F 22.0-322.0 Ferritin [Mass/volume] in Serum or Plasma 2023-05-23 03:10:41 535 ng/mL F 22.0-322.0 HCT CALC HGBX3 2023-05-22 19:51:18 35.4 % F 42.0-52.0 HCT CALC HGBX3 2023-05-22 19:51:18 35.4 % F 42.0-52.0 HCT CALC HGBX3 2023-05-22 19:51:18 35.4 % F 42.0-52.0 Hemoglobin [Mass/volume] in Blood 2023-05-22 19:50:44 11.8 g/dL F 14.0-18.0 Erythrocytes [#/volume] in Blood by Automated count 2023-05-22 19:50:44 3.7 x 10'6 cells/uL F 4.6-6.2 Hematocrit [Volume Fraction] of Blood by Automated count 2023-05-22 19:50:44 35.5 % F 41.0-53.0 Hemoglobin [Mass/volume] in Blood 2023-05-22 19:50:44 11.8 g/dL F 14.0-18.0 Erythrocytes [#/volume] in Blood by Automated count 2023-05-22 19:50:44 3.7 x 10'6 cells/uL F 4.6-6.2 Hematocrit [Volume Fraction] of Blood by Automated count 2023-05-22 19:50:44 35.5 % F 41.0-53.0 Hemoglobin [Mass/volume] in Blood 2023-05-22 19:50:44 11.8 g/dL F 14.0-18.0 Erythrocytes [#/volume] in Blood by Automated count 2023-05-22 19:50:44 3.7 x 10'6 cells/uL F 4.6-6.2 Hematocrit [Volume Fraction] of Blood by Automated count 2023-05-22 19:50:44 35.5 % F 41.0-53.0 Reticulocytes/100 erythrocytes in Blood by Automated count 2023-05-22 19:50:42 2.29 % F 0.7-2.5 Erythrocyte distribution width [Ratio] by Automated count 2023-05-22 19:50:42 15.6 % F 11.0-15.0 Platelets [#/volume] in Blood by Automated count 2023-05-22 19:50:42 136 x 10^3 cells/uL F 140.0-450.0 MCH [Entitic mass] by Automated count 2023-05-22 19:50:42 32 pg F 25.9-34.2 MCHC [Mass/volume] by Automated count 2023-05-22 19:50:42 33.4 g/dL F 29.6-35.3 MCV [Entitic volume] by Automated count 2023-05-22 19:50:42 95.8 fL F 80.0-100.0 Reticulocytes/100 erythrocytes in Blood by Automated count 2023-05-22 19:50:42 2.29 % F 0.7-2.5 MCV [Entitic volume] by Automated count 2023-05-22 19:50:42 95.8 fL F 80.0-100.0 Erythrocyte distribution width [Ratio] by Automated count 2023-05-22 19:50:42 15.6 % F 11.0-15.0 Platelets [#/volume] in Blood by Automated count 2023-05-22 19:50:42 136 x 10^3 cells/uL F 140.0-450.0 MCH [Entitic mass] by Automated count 2023-05-22 19:50:42 32 pg F 25.9-34.2 MCHC [Mass/volume] by Automated count 2023-05-22 19:50:42 33.4 g/dL F 29.6-35.3 Reticulocytes/100 erythrocytes in Blood by Automated count 2023-05-22 19:50:42 2.29 % F 0.7-2.5 Erythrocyte distribution width [Ratio] by Automated count 2023-05-22 19:50:42 15.6 % F 11.0-15.0 Platelets [#/volume] in Blood by Automated count 2023-05-22 19:50:42 136 x 10^3 cells/uL F 140.0-450.0 MCH [Entitic mass] by Automated count 2023-05-22 19:50:42 32 pg F 25.9-34.2 MCHC [Mass/volume] by Automated count 2023-05-22 19:50:42 33.4 g/dL F 29.6-35.3 MCV [Entitic volume] by Automated count 2023-05-22 19:50:42 95.8 fL F 80.0-100.0 Ferritin [Mass/volume] in Serum or Plasma 2023-04-26 [...] 14:17:04 158 x 10^3 cells/uL F 140.0-450.0 Erythrocyte distribution width [Ratio] by Automated count 2023-04-25 14:17:02 15.8 % F 11.0-15.0 Hemoglobin [Mass/volume] in Blood 2023-04-25 14:17:02 11.1 g/dL F 14.0-18.0 MCH [Entitic mass] by Automated count 2023-04-25 14:17:02 33.1 pg F 25.9-34.2 MCHC [Mass/volume] by Automated count 2023-04-25 14:17:02 32.7 g/dL F 29.6-35.3 Erythrocytes [#/volume] in Blood by Automated count 2023-04-25 14:17:02 3.35 x 10'6 cells/uL F 4.6-6.2 Hematocrit [Volume Fraction] of Blood by Automated count 2023-04-25 14:17:02 33.9 % F 41.0-53.0 MCV [Entitic volume] by Automated count 2023-04-25 14:17:02 101.2 fL F 80.0-100.0 Erythrocyte distribution width [Ratio] by Automated count 2023-04-25 14:17:02 15.8 % F 11.0-15.0 Hemoglobin [Mass/volume] in Blood 2023-04-25 14:17:02 11.1 g/dL F 14.0-18.0 MCH [Entitic mass] by Automated count 2023-04-25 14:17:02 33.1 pg F 25.9-34.2 MCHC [Mass/volume] by Automated count 2023-04-25 14:17:02 32.7 g/dL F 29.6-35.3 Erythrocytes [#/volume] in Blood by Automated count 2023-04-25 14:17:02 3.35 x 10'6 cells/uL F 4.6-6.2 Hematocrit [Volume Fraction] of Blood by Automated count 2023-04-25 14:17:02 33.9 % F 41.0-53.0 MCV [Entitic volume] by Automated count 2023-04-25 14:17:02 101.2 fL F 80.0-100.0 IRON SATURATION 2023-04-25 08:37:33 36 % F 21.0-49.0 TIBC 2023-04-25 08:37:33 198 ug/dL F 250.0-425.0 IRON SATURATION 2023-04-25 08:37:33 36 % F 21.0-49.0 TIBC 2023-04-25 08:37:33 198 ug/dL F 250.0-425.0 Iron [Mass/volume] in Serum or Plasma 2023-04-25 [...] count 2023-04-04 04:18:44 1.06 % F 0.7-2.5 Erythrocyte distribution width [Ratio] by Automated count 2023-04-04 04:18:44 15.3 % F 11.0-15.0 Hemoglobin [Mass/volume] in Blood 2023-04-04 04:18:44 12.9 g/dL F 14.0-18.0 Platelets [#/volume] in Blood by Automated count 2023-04-04 04:18:44 209 x 10^3 cells/uL F 140.0-450.0 MCH [Entitic mass] by Automated count 2023-04-04 04:18:44 32.7 pg F 25.9-34.2 MCHC [Mass/volume] by Automated count 2023-04-04 04:18:44 33.1 g/dL F 29.6-35.3 Erythrocytes [#/volume] in Blood by Automated count 2023-04-04 04:18:44 3.95 x 10'6 cells/uL F 4.6-6.2 Hematocrit [Volume Fraction] of Blood by Automated count 2023-04-04 04:18:44 39 % F 41.0-53.0 MCV [Entitic volume] by Automated count 2023-04-04 04:18:44 98.7 fL F 80.0-100.0 IRON SATURATION 2023-04-03 22:31:27 37 % F 21.0-49.0 TIBC 2023-04-03 22:31:27 199 ug/dL F 250.0-425.0 Iron [Mass/volume] in Serum or Plasma 2023-04-03 22:25:13 74 ug/dL F 65.0-175.0 Iron binding capacity.unsaturate d [Mass/volume] in Serum or Plasma 2023-04-03 22:25:13 125 ug/dL F 75.0-360.0 IRON SATURATION 2023-02-27 08:23:53 29 % F 21.0-49.0 TIBC 2023-02-27 08:23:53 240 ug/dL F 250.0-425.0 TIBC 2023-02-27 08:23:53 240 ug/dL F 250.0-425.0 IRON SATURATION 2023-02-27 08:23:53 29 % F 21.0-49.0 IRON SATURATION 2023-02-27 08:23:53 29 % F [...] Plasma 2023-02-27 08:20:25 171 ug/dL F 75.0-360.0 Ferritin [Mass/volume] in Serum or Plasma 2023-02-26 22:13:43 702 ng/mL F 22.0-322.0 Ferritin [Mass/volume] in Serum or Plasma 2023-02-26 22:13:43 702 ng/mL F 22.0-322.0 Ferritin [Mass/volume] in Serum or Plasma 2023-02-26 22:13:43 702 ng/mL F 22.0-322.0 HCT CALC HGBX3 2023-02-25 20:15:29 33.3 % F 42.0-52.0 HCT CALC HGBX3 2023-02-25 20:15:29 33.3 % F 42.0-52.0 HCT CALC HGBX3 2023-02-25 20:15:29 33.3 % F 42.0-52.0 Erythrocyte distribution width [Ratio] by Automated count 2023-02-25 20:15:23 16.5 % F 11.0-15.0 Hemoglobin [Mass/volume] in Blood 2023-02-25 20:15:23 11.1 g/dL F 14.0-18.0 MCH [Entitic mass] by Automated count 2023-02-25 20:15:23 32.9 pg F 25.9-34.2 MCHC [Mass/volume] by Automated count 2023-02-25 20:15:23 33.2 g/dL F 29.6-35.3 Erythrocytes [#/volume] in Blood by Automated count 2023-02-25 20:15:23 3.37 x 10'6 cells/uL F 4.6-6.2 Hematocrit [Volume Fraction] of Blood by Automated count 2023-02-25 20:15:23 33.4 % F 41.0-53.0 MCV [Entitic volume] by Automated count 2023-02-25 20:15:23 99.1 fL F 80.0-100.0 Erythrocyte distribution width [Ratio] by Automated count 2023-02-25 20:15:23 16.5 % F 11.0-15.0 MCV [Entitic volume] by Automated count 2023-02-25 20:15:23 99.1 fL F 80.0-100.0 Hemoglobin [Mass/volume] in Blood 2023-02-25 20:15:23 11.1 g/dL F 14.0-18.0 MCH [Entitic mass] by Automated count 2023-02-25 20:15:23 32.9 pg F 25.9-34.2 MCHC [Mass/volume] by Automated count 2023-02-25 20:15:23 33.2 g/dL F 29.6-35.3 Erythrocytes [#/volume] in Blood by Automated count 2023-02-25 20:15:23 3.37 x 10'6 cells/uL F 4.6-6.2 Hematocrit [Volume Fraction] of Blood by Automated count 2023-02-25 20:15:23 33.4 % F 41.0-53.0 Erythrocyte distribution width [Ratio] by Automated count 2023-02-25 20:15:23 16.5 % F 11.0-15.0 Hemoglobin [Mass/volume] in Blood 2023-02-25 20:15:23 11.1 g/dL F 14.0-18.0 MCH [Entitic mass] by Automated count 2023-02-25 20:15:23 32.9 pg F 25.9-34.2 MCHC [Mass/volume] by Automated count 2023-02-25 20:15:23 33.2 g/dL F 29.6-35.3 Erythrocytes [#/volume] in Blood [...] 20:15:20 164 x 10^3 cells/uL F 140.0-450.0 Ferritin [Mass/volume] in Serum or Plasma 2023-01-22 07:16:44 692 ng/mL F 22.0-322.0 Ferritin [Mass/volume] in Serum or Plasma 2023-01-22 07:16:44 692 ng/mL F 22.0-322.0 HCT CALC HGBX3 2023-01-22 04:32:45 26.7 % F 42.0-52.0 HCT CALC HGBX3 2023-01-22 04:32:45 26.7 % F 42.0-52.0 Reticulocytes/100 erythrocytes in Blood by Automated count 2023-01-22 04:32:37 2.54 % F 0.7-2.5 Erythrocyte distribution width [Ratio] by Automated count 2023-01-22 04:32:37 15.4 % F 11.0-15.0 Hemoglobin [Mass/volume] in Blood 2023-01-22 04:32:37 8.9 g/dL F 14.0-18.0 Platelets [#/volume] in Blood by Automated count 2023-01-22 04:32:37 163 x 10^3 cells/uL F 140.0-450.0 MCH [Entitic mass] by Automated count 2023-01-22 04:32:37 32.6 pg F 25.9-34.2 MCHC [Mass/volume] by Automated count 2023-01-22 04:32:37 33 g/dL F 29.6-35.3 Erythrocytes [#/volume] in Blood by Automated count 2023-01-22 04:32:37 2.71 x 10'6 cells/uL F 4.6-6.2 Hematocrit [Volume Fraction] of Blood by Automated count 2023-01-22 04:32:37 26.8 % F 41.0-53.0 MCV [Entitic volume] by Automated count 2023-01-22 04:32:37 98.8 fL F 80.0-100.0 Reticulocytes/100 erythrocytes in Blood by Automated count 2023-01-22 04:32:37 2.54 % F 0.7-2.5 Erythrocyte distribution width [Ratio] by Automated count 2023-01-22 04:32:37 15.4 % F 11.0-15.0 Platelets [#/volume] in Blood by Automated count 2023-01-22 04:32:37 163 x 10^3 cells/uL F 140.0-450.0 Hemoglobin [Mass/volume] in Blood 2023-01-22 04:32:37 8.9 g/dL F 14.0-18.0 MCH [Entitic mass] by Automated count 2023-01-22 04:32:37 32.6 pg F 25.9-34.2 MCHC [Mass/volume] by Automated count 2023-01-22 04:32:37 33 g/dL F 29.6-35.3 Erythrocytes [#/volume] in Blood by Automated count 2023-01-22 04:32:37 2.71 x 10'6 cells/uL F 4.6-6.2 Hematocrit [Volume Fraction] of Blood by Automated count 2023-01-22 04:32:37 26.8 % F 41.0-53.0 MCV [Entitic volume] by Automated count 2023-01-22 04:32:37 98.8 fL F 80.0-100.0 IRON SATURATION 2023-01-22 04:07:41 30 % F [...] TIBC 2022-12-28 06:25:36 272 ug/dL F 250.0-425.0 IRON SATURATION 2022-12-28 06:25:36 29 % F 21.0-49.0 TIBC 2022-12-28 06:25:36 272 ug/dL F 250.0-425.0 Iron binding capacity.unsaturate d [Mass/volume] in Serum or Plasma 2022-12-28 06:21:37 193 ug/dL F 75.0-360.0 Iron [Mass/volume] in Serum or Plasma 2022-12-28 06:21:37 79 ug/dL F 65.0-175.0 Iron [Mass/volume] in Serum or Plasma 2022-12-28 06:21:37 79 ug/dL F 65.0-175.0 Iron binding capacity.unsaturate d [Mass/volume] in Serum or Plasma 2022-12-28 06:21:37 193 ug/dL F 75.0-360.0 Ferritin [Mass/volume] in Serum or Plasma 2022-12-28 02:33:08 911 ng/mL F 22.0-322.0 Ferritin [Mass/volume] in Serum or Plasma 2022-12-28 02:33:08 911 ng/mL F 22.0-322.0 HCT CALC HGBX3 2022-12-27 20:08:58 25.5 % F 42.0-52.0 HCT CALC HGBX3 2022-12-27 20:08:58 25.5 % F 42.0-52.0 Erythrocyte distribution width [Ratio] by Automated count 2022-12-27 20:08:41 14.9 % F 11.0-15.0 Hemoglobin [Mass/volume] in Blood 2022-12-27 20:08:41 8.5 g/dL F 14.0-18.0 Platelets [#/volume] in Blood by Automated count 2022-12-27 20:08:41 178 x 10^3 cells/uL F 140.0-450.0 MCHC [Mass/volume] by Automated count 2022-12-27 20:08:41 31.7 g/dL F 29.6-35.3 Erythrocytes [#/volume] in Blood by Automated count 2022-12-27 20:08:41 2.63 x 10'6 cells/uL F 4.6-6.2 Hematocrit [Volume Fraction] of Blood by Automated count 2022-12-27 20:08:41 26.8 % F 41.0-53.0 MCV [Entitic volume] by Automated count 2022-12-27 20:08:41 102 fL F 80.0-100.0 Reticulocytes/100 erythrocytes in Blood by Automated count 2022-12-27 20:08:41 2.34 % F 0.7-2.5 MCH [Entitic mass] by Automated count 2022-12-27 20:08:41 32.3 pg F 25.9-34.2 Reticulocytes/100 erythrocytes in Blood by Automated count 2022-12-27 20:08:41 2.34 % F 0.7-2.5 Erythrocyte distribution width [Ratio] by Automated count 2022-12-27 20:08:41 14.9 % F 11.0-15.0 Platelets [#/volume] in Blood by Automated count 2022-12-27 20:08:41 178 x 10^3 cells/uL F 140.0-450.0 Hemoglobin [Mass/volume] in Blood 2022-12-27 20:08:41 8.5 g/dL F 14.0-18.0 MCH [Entitic mass] by Automated count 2022-12-27 20:08:41 32.3 pg F 25.9-34.2 MCHC [Mass/volume] by Automated count 2022-12-27 20:08:41 31.7 g/dL F 29.6-35.3 Erythrocytes [#/volume] in Blood by Automated count 2022-12-27 20:08:41 2.63 x 10'6 cells/uL F 4.6-6.2 Hematocrit [Volume Fraction] of Blood by Automated count 2022-12-27 20:08:41 26.8 % F 41.0-53.0 MCV [Entitic volume] by Automated count 2022-12-27 20:08:41 102 fL F 80.0-100.0 Ferritin [Mass/volume] in Serum or Plasma 2022-11-24 [...] count 2022-11-23 23:44:35 2.52 % F 0.7-2.5 Erythrocyte distribution width [Ratio] by Automated count 2022-11-23 23:44:35 16 % F 11.0-15.0 Hemoglobin [Mass/volume] in Blood 2022-11-23 23:44:35 9.1 g/dL F 14.0-18.0 Platelets [#/volume] in Blood by Automated count 2022-11-23 23:44:35 160 x 10^3 cells/uL F 140.0-450.0 MCH [Entitic mass] by Automated count 2022-11-23 23:44:35 33.5 pg F 25.9-34.2 MCHC [Mass/volume] by Automated count 2022-11-23 23:44:35 33.7 g/dL F 29.6-35.3 Erythrocytes [#/volume] in Blood by Automated count 2022-11-23 23:44:35 2.73 x 10'6 cells/uL F 4.6-6.2 Hematocrit [Volume Fraction] of Blood by Automated count 2022-11-23 23:44:35 27.1 % F 41.0-53.0 MCV [Entitic volume] by Automated count 2022-11-23 23:44:35 99.3 fL F 80.0-100.0 Ferritin [Mass/volume] in Serum or Plasma 2022-10-30 18:40:04 848 ng/mL F 22.0-322.0 Ferritin [Mass/volume] in Serum or Plasma 2022-10-30 18:40:04 848 ng/mL F 22.0-322.0 Ferritin [Mass/volume] in Serum or Plasma 2022-10-30 18:40:04 848 ng/mL F 22.0-322.0 IRON SATURATION 2022-10-30 08:03:41 46 % F 21.0-49.0 TIBC 2022-10-30 08:03:41 264 ug/dL F 250.0-425.0 TIBC 2022-10-30 08:03:41 264 ug/dL F 250.0-425.0 IRON SATURATION 2022-10-30 08:03:41 46 % F 21.0-49.0 IRON SATURATION 2022-10-30 08:03:41 46 % F 21.0-49.0 TIBC 2022-10-30 08:03:41 264 ug/dL F 250.0-425.0 Iron [Mass/volume] in Serum or Plasma 2022-10-30 07:43:13 122 ug/dL F 65.0-175.0 Iron binding capacity.unsaturate d [Mass/volume] in Serum or Plasma 2022-10-30 07:43:13 142 ug/dL F 75.0-360.0 Iron binding capacity.unsaturate d [Mass/volume] in Serum or Plasma 2022-10-30 07:43:13 142 ug/dL F 75.0-360.0 Iron [Mass/volume] in Serum or Plasma 2022-10-30 07:43:13 122 ug/dL F 65.0-175.0 Iron [Mass/volume] in Serum or Plasma 2022-10-30 07:43:13 122 ug/dL F 65.0-175.0 Iron binding capacity.unsaturate d [Mass/volume] in Serum or Plasma 2022-10-30 07:43:13 142 ug/dL F 75.0-360.0 HCT CALC HGBX3 2022-10-29 17:05:32 27.9 % F 42.0-52.0 HCT CALC HGBX3 2022-10-29 17:05:32 27.9 % F 42.0-52.0 HCT CALC HGBX3 2022-10-29 17:05:32 27.9 % F 42.0-52.0 Reticulocytes/100 erythrocytes in Blood [...] count 2022-10-29 17:04:34 100.2 fL F 80.0-100.0 Erythrocyte distribution width [Ratio] by Automated count 2022-10-29 17:04:33 16 % F 11.0-15.0 Platelets [#/volume] in Blood by Automated count 2022-10-29 17:04:33 178 x 10^3 cells/uL F 140.0-450.0 MCH [Entitic mass] by Automated count 2022-10-29 17:04:33 33.5 pg F 25.9-34.2 MCHC [Mass/volume] by Automated count 2022-10-29 17:04:33 33.4 g/dL F 29.6-35.3 Erythrocytes [#/volume] in Blood by Automated count 2022-10-29 17:04:33 2.79 x 10'6 cells/uL F 4.6-6.2 Erythrocyte distribution width [Ratio] by Automated count 2022-10-29 17:04:33 16 % F 11.0-15.0 MCH [Entitic mass] by Automated count 2022-10-29 17:04:33 33.5 pg F 25.9-34.2 Platelets [#/volume] in Blood by Automated count 2022-10-29 17:04:33 178 x 10^3 cells/uL F 140.0-450.0 MCHC [Mass/volume] by Automated count 2022-10-29 17:04:33 33.4 g/dL F 29.6-35.3 Erythrocytes [#/volume] in Blood by Automated count 2022-10-29 17:04:33 2.79 x 10'6 cells/uL F 4.6-6.2 Erythrocyte distribution width [Ratio] by Automated count 2022-10-29 17:04:33 16 % F 11.0-15.0 Platelets [#/volume] in Blood by Automated count 2022-10-29 17:04:33 178 x 10^3 cells/uL F 140.0-450.0 MCH [Entitic mass] by Automated count 2022-10-29 17:04:33 33.5 pg F 25.9-34.2 MCHC [Mass/volume] by Automated count 2022-10-29 17:04:33 33.4 g/dL F 29.6-35.3 Erythrocytes [#/volume] in Blood by Automated count 2022-10-29 17:04:33 2.79 x 10'6 cells/uL F 4.6-6.2 IRON SATURATION 2022-09-28 02:35:14 36 % F 21.0-49.0 TIBC 2022-09-28 02:35:14 273 ug/dL F 250.0-425.0 Iron [Mass/volume] in Serum or Plasma 2022-09-28 02:30:38 98 ug/dL F 65.0-175.0 Iron binding capacity.unsaturate d [Mass/volume] in Serum or Plasma 2022-09-28 02:30:38 175 ug/dL F 75.0-360.0 Ferritin [Mass/volume] in Serum or Plasma 2022-09-27 [...] count 2022-09-27 16:57:36 1.57 % F 0.7-2.5 Hemoglobin [Mass/volume] in Blood 2022-09-27 16:57:36 9.7 g/dL F 14.0-18.0 Platelets [#/volume] in Blood by Automated count 2022-09-27 16:57:36 192 x 10^3 cells/uL F 140.0-450.0 Erythrocytes [#/volume] in Blood by Automated count 2022-09-27 16:57:36 2.99 x 10'6 cells/uL F 4.6-6.2 Hematocrit [Volume Fraction] of Blood by Automated count 2022-09-27 16:57:36 31.2 % F 41.0-53.0 MCV [Entitic volume] by Automated count 2022-09-27 16:57:36 104.3 fL F 80.0-100.0 Ferritin [Mass/volume] in Serum or Plasma 2022-08-28 [...] 2022-08-28 05:07:03 290 ug/dL F 250.0-425.0 Iron [Mass/volume] in Serum or Plasma 2022-08-28 [...] count 2022-08-28 00:52:20 2.63 % F 0.7-2.5 Erythrocyte distribution width [Ratio] by Automated count 2022-08-28 00:52:20 16.2 % F 11.0-15.0 Hemoglobin [Mass/volume] in Blood 2022-08-28 00:52:20 9.6 g/dL F 14.0-18.0 Platelets [#/volume] in Blood by Automated count 2022-08-28 00:52:20 190 x 10^3 cells/uL F 140.0-450.0 MCH [Entitic mass] by Automated count 2022-08-28 00:52:20 30.5 pg F 25.9-34.2 MCHC [Mass/volume] by Automated count 2022-08-28 00:52:20 31.7 g/dL F 29.6-35.3 Erythrocytes [#/volume] in Blood by Automated count 2022-08-28 00:52:20 3.15 x 10'6 cells/uL F 4.6-6.2 Hematocrit [Volume Fraction] of Blood by Automated count 2022-08-28 00:52:20 30.2 % F 41.0-53.0 MCV [Entitic volume] by Automated count 2022-08-28 00:52:20 95.9 fL F 80.0-100.0 Reticulocytes/100 erythrocytes in Blood by Automated count 2022-08-28 00:52:20 2.63 % F 0.7-2.5 Erythrocytes [#/volume] in Blood by Automated count 2022-08-28 00:52:20 3.15 x 10'6 cells/uL F 4.6-6.2 Hematocrit [Volume Fraction] of Blood by Automated count 2022-08-28 00:52:20 30.2 % F 41.0-53.0 MCV [Entitic volume] by Automated count 2022-08-28 00:52:20 95.9 fL F 80.0-100.0 Erythrocyte distribution width [Ratio] by Automated count 2022-08-28 00:52:20 16.2 % F 11.0-15.0 Hemoglobin [Mass/volume] in Blood 2022-08-28 00:52:20 9.6 g/dL F 14.0-18.0 Platelets [#/volume] in Blood by Automated count 2022-08-28 00:52:20 190 x 10^3 cells/uL F 140.0-450.0 MCHC [Mass/volume] by Automated count 2022-08-28 00:52:20 31.7 g/dL F 29.6-35.3 MCH [Entitic mass] by Automated count 2022-08-28 00:52:20 30.5 pg F 25.9-34.2 Reticulocytes/100 erythrocytes in Blood by Automated count 2022-08-28 00:52:20 2.63 % F 0.7-2.5 Erythrocyte distribution width [Ratio] by Automated count 2022-08-28 00:52:20 16.2 % F 11.0-15.0 Platelets [#/volume] in Blood by Automated count 2022-08-28 00:52:20 190 x 10^3 cells/uL F 140.0-450.0 Hemoglobin [Mass/volume] in Blood 2022-08-28 00:52:20 9.6 g/dL F 14.0-18.0 MCH [Entitic mass] by Automated count 2022-08-28 00:52:20 30.5 pg F 25.9-34.2 MCHC [Mass/volume] by Automated count 2022-08-28 00:52:20 31.7 g/dL F 29.6-35.3 Erythrocytes [#/volume] in Blood by Automated count 2022-08-28 00:52:20 3.15 x 10'6 cells/uL F 4.6-6.2 Hematocrit [Volume Fraction] of Blood by Automated count 2022-08-28 00:52:20 30.2 % F 41.0-53.0 MCV [Entitic volume] by Automated count 2022-08-28 00:52:20 95.9 fL F 80.0-100.0 IRON SATURATION 2022-07-25 04:39:31 28 % F 21.0-49.0 TIBC 2022-07-25 04:39:31 211 ug/dL F 250.0-425.0 Iron [Mass/volume] in Serum or Plasma 2022-07-25 04:37:57 60 ug/dL F 65.0-175.0 Iron binding capacity.unsaturate d [Mass/volume] in Serum or Plasma 2022-07-25 04:37:57 151 ug/dL F 75.0-360.0 HCT CALC HGBX3 2022-07-25 00:51:18 30 % F 42.0-52.0 Reticulocytes/100 erythrocytes in Blood by Automated count 2022-07-25 00:45:21 1.64 % F 0.7-2.5 Erythrocyte distribution width [Ratio] by Automated count 2022-07-25 00:45:21 16.3 % F 11.0-15.0 Hemoglobin [Mass/volume] in Blood 2022-07-25 00:45:21 10 g/dL F 14.0-18.0 Platelets [#/volume] in Blood by Automated count 2022-07-25 00:45:21 187 x 10^3 cells/uL F 140.0-450.0 MCH [Entitic mass] by Automated count 2022-07-25 00:45:21 31.5 pg F 25.9-34.2 MCHC [Mass/volume] by Automated count 2022-07-25 00:45:21 33.6 g/dL F 29.6-35.3 Erythrocytes [#/volume] in Blood by Automated count 2022-07-25 00:45:21 3.17 x 10'6 cells/uL F 4.6-6.2 Hematocrit [Volume Fraction] of Blood by Automated count 2022-07-25 00:45:21 29.8 % F 41.0-53.0 MCV [Entitic volume] by Automated count 2022-07-25 00:45:21 93.8 fL F 80.0-100.0 Ferritin [Mass/volume] in Serum or Plasma 2022-07-24 22:57:17 791 ng/mL F 22.0-322.0 IRON SATURATION 2022-06-23 04:56:00 23 % F 21.0-49.0 TIBC 2022-06-23 04:56:00 220 ug/dL F 250.0-425.0 IRON SATURATION 2022-06-23 04:56:00 23 % F 21.0-49.0 TIBC 2022-06-23 04:56:00 220 ug/dL F 250.0-425.0 Iron [Mass/volume] in Serum or Plasma 2022-06-23 04:52:50 51 ug/dL F 65.0-175.0 Iron binding capacity.unsaturate d [Mass/volume] in Serum or Plasma 2022-06-23 04:52:50 169 ug/dL F 75.0-360.0 Iron [Mass/volume] in Serum or Plasma 2022-06-23 04:52:50 51 ug/dL F 65.0-175.0 Iron binding capacity.unsaturate d [Mass/volume] in Serum or Plasma 2022-06-23 04:52:50 169 ug/dL F 75.0-360.0 Ferritin [Mass/volume] in Serum or Plasma 2022-06-22 22:14:18 609 ng/mL F 22.0-322.0 Ferritin [Mass/volume] in Serum or Plasma 2022-06-22 22:14:18 609 ng/mL F 22.0-322.0 HCT CALC HGBX3 2022-06-22 20:47:07 32.1 % F 42.0-52.0 HCT CALC HGBX3 2022-06-22 20:47:07 32.1 % F 42.0-52.0 Reticulocytes/100 erythrocytes in Blood by Automated count 2022-06-22 20:46:12 2.16 % F 0.8-2.1 Erythrocyte distribution width [Ratio] by Automated count 2022-06-22 20:46:12 15.1 % F 11.0-15.0 Hemoglobin [Mass/volume] in Blood 2022-06-22 20:46:12 10.7 g/dL F 14.0-18.0 Platelets [#/volume] in Blood by Automated count 2022-06-22 20:46:12 172 x 10^3 cells/uL F 150.0-400.0 MCH [Entitic mass] by Automated count 2022-06-22 20:46:12 30.5 pg F 27.0-31.0 MCHC [Mass/volume] by Automated count 2022-06-22 20:46:12 33.3 g/dL F 32.0-36.0 Erythrocytes [#/volume] in Blood by Automated count 2022-06-22 20:46:12 3.51 x 10'6 cells/uL F 4.6-6.2 Hematocrit [Volume Fraction] of Blood by Automated count 2022-06-22 20:46:12 32 % F 42.0-52.0 MCV [Entitic volume] by Automated count 2022-06-22 20:46:12 91.4 fL F 80.0-100.0 Reticulocytes/100 erythrocytes in Blood by Automated count 2022-06-22 20:46:12 2.16 % F 0.8-2.1 Erythrocyte distribution width [Ratio] by Automated count 2022-06-22 20:46:12 15.1 % F 11.0-15.0 Hemoglobin [Mass/volume] in Blood 2022-06-22 20:46:12 10.7 g/dL F 14.0-18.0 Platelets [#/volume] in Blood by Automated count 2022-06-22 20:46:12 172 x 10^3 cells/uL F 150.0-400.0 MCH [Entitic mass] by Automated count 2022-06-22 20:46:12 30.5 pg F 27.0-31.0 MCHC [Mass/volume] by Automated count 2022-06-22 20:46:12 33.3 g/dL F 32.0-36.0 Erythrocytes [#/volume] in Blood by Automated count 2022-06-22 20:46:12 3.51 x 10'6 cells/uL F 4.6-6.2 Hematocrit [Volume Fraction] of Blood by Automated count 2022-06-22 20:46:12 32 % F 42.0-52.0 MCV [Entitic volume] by Automated count 2022-06-22 20:46:12 91.4 fL F 80.0-100.0 IRON SATURATION 2022-05-26 04:40:40 30 % F 21.0-49.0 TIBC 2022-05-26 04:40:40 235 ug/dL F 250.0-425.0 IRON SATURATION 2022-05-26 04:40:40 30 % F 21.0-49.0 TIBC 2022-05-26 04:40:40 235 ug/dL F 250.0-425.0 IRON SATURATION 2022-05-26 04:40:40 30 % F 21.0-49.0 TIBC 2022-05-26 04:40:40 235 ug/dL F 250.0-425.0 IRON SATURATION 2022-05-26 04:40:40 30 % F 21.0-49.0 TIBC 2022-05-26 04:40:40 235 ug/dL F 250.0-425.0 Iron [Mass/volume] in Serum or Plasma 2022-05-26 [...] 2022-05-26 04:29:42 164 ug/dL F 75.0-360.0 Iron binding capacity.unsaturate d [Mass/volume] in Serum or Plasma 2022-05-26 04:29:42 164 ug/dL F 75.0-360.0 Iron [Mass/volume] in Serum or Plasma 2022-05-26 04:29:42 71 ug/dL F 65.0-175.0 Ferritin [Mass/volume] in Serum or Plasma 2022-05-26 [...] HGBX3 2022-05-25 21:37:12 30 % F 42.0-52.0 Erythrocyte distribution width [Ratio] by Automated count 2022-05-25 21:36:18 15.5 % F 11.0-15.0 Reticulocytes/100 erythrocytes in Blood by Automated count 2022-05-25 21:36:18 2.08 % F 0.8-2.1 Hemoglobin [Mass/volume] in Blood 2022-05-25 21:36:18 10 g/dL F 14.0-18.0 Platelets [#/volume] in Blood by Automated count 2022-05-25 21:36:18 152 x 10^3 cells/uL F 150.0-400.0 MCH [Entitic mass] by Automated count 2022-05-25 21:36:18 28.1 pg F 27.0-31.0 MCHC [Mass/volume] by Automated count 2022-05-25 21:36:18 30.9 g/dL F 32.0-36.0 Erythrocytes [#/volume] in Blood by Automated count 2022-05-25 21:36:18 3.55 x 10'6 cells/uL F 4.6-6.2 Hematocrit [Volume Fraction] of Blood by Automated count 2022-05-25 21:36:18 32.3 % F 42.0-52.0 MCV [Entitic volume] by Automated count 2022-05-25 21:36:18 90.9 fL F 80.0-100.0 Erythrocyte distribution width [Ratio] by Automated count 2022-05-25 21:36:18 15.5 % F 11.0-15.0 MCH [Entitic mass] by Automated count 2022-05-25 21:36:18 28.1 pg F 27.0-31.0 MCHC [Mass/volume] by Automated count 2022-05-25 21:36:18 30.9 g/dL F 32.0-36.0 MCV [Entitic volume] by Automated count 2022-05-25 21:36:18 90.9 fL F 80.0-100.0 Reticulocytes/100 erythrocytes in Blood by Automated count 2022-05-25 21:36:18 2.08 % F 0.8-2.1 Platelets [#/volume] in Blood by Automated count 2022-05-25 21:36:18 152 x 10^3 cells/uL F 150.0-400.0 Hemoglobin [Mass/volume] in Blood 2022-05-25 21:36:18 10 g/dL F 14.0-18.0 Erythrocytes [#/volume] in Blood by Automated count 2022-05-25 21:36:18 3.55 x 10'6 cells/uL F 4.6-6.2 Hematocrit [Volume Fraction] of Blood by Automated count 2022-05-25 21:36:18 32.3 % F 42.0-52.0 Reticulocytes/100 erythrocytes in Blood by Automated count 2022-05-25 21:36:18 2.08 % F 0.8-2.1 Erythrocyte distribution width [Ratio] by Automated count 2022-05-25 21:36:18 15.5 % F 11.0-15.0 Hemoglobin [Mass/volume] in Blood 2022-05-25 21:36:18 10 g/dL F 14.0-18.0 Platelets [#/volume] in Blood by Automated count 2022-05-25 21:36:18 152 x 10^3 cells/uL F 150.0-400.0 MCH [Entitic mass] by Automated count 2022-05-25 21:36:18 28.1 pg F 27.0-31.0 MCHC [Mass/volume] by Automated count 2022-05-25 21:36:18 30.9 g/dL F 32.0-36.0 Hematocrit [Volume Fraction] of Blood by Automated count 2022-05-25 21:36:18 32.3 % F 42.0-52.0 Erythrocytes [#/volume] in Blood by Automated count 2022-05-25 21:36:18 3.55 x 10'6 cells/uL F 4.6-6.2 MCV [Entitic volume] by Automated count 2022-05-25 21:36:18 90.9 fL F 80.0-100.0 Reticulocytes/100 erythrocytes in Blood by Automated count 2022-05-25 21:36:18 2.08 % F 0.8-2.1 Erythrocyte distribution width [Ratio] by Automated count 2022-05-25 21:36:18 15.5 % F 11.0-15.0 Hemoglobin [Mass/volume] in Blood 2022-05-25 21:36:18 10 g/dL F 14.0-18.0 Platelets [#/volume] in Blood by Automated count 2022-05-25 21:36:18 152 x 10^3 cells/uL F 150.0-400.0 MCH [Entitic mass] by Automated count 2022-05-25 21:36:18 28.1 pg F 27.0-31.0 MCHC [Mass/volume] by Automated count 2022-05-25 21:36:18 30.9 g/dL F 32.0-36.0 Erythrocytes [#/volume] in Blood by Automated count 2022-05-25 21:36:18 3.55 x 10'6 cells/uL F 4.6-6.2 Hematocrit [Volume Fraction] of Blood by Automated count 2022-05-25 21:36:18 32.3 % F 42.0-52.0 MCV [Entitic volume] by Automated count 2022-05-25 21:36:18 90.9 fL F 80.0-100.0 IRON SATURATION 2022-04-25 03:40:15 30 % F 21.0-49.0 TIBC 2022-04-25 03:40:15 209 ug/dL F 250.0-425.0 IRON SATURATION 2022-04-25 03:40:15 30 % F 21.0-49.0 TIBC 2022-04-25 03:40:15 209 ug/dL F 250.0-425.0 Iron [Mass/volume] in Serum or Plasma 2022-04-25 03:22:57 62 ug/dL F 65.0-175.0 Iron binding capacity.unsaturate d [Mass/volume] in Serum or Plasma 2022-04-25 03:22:57 147 ug/dL F 75.0-360.0 Iron [Mass/volume] in Serum or Plasma 2022-04-25 03:22:57 62 ug/dL F 65.0-175.0 Iron binding capacity.unsaturate d [Mass/volume] in Serum or Plasma 2022-04-25 03:22:57 147 ug/dL F 75.0-360.0 Ferritin [Mass/volume] in Serum or Plasma 2022-04-25 00:46:20 856 ng/mL F 22.0-322.0 Ferritin [Mass/volume] in Serum or Plasma 2022-04-25 00:46:20 856 ng/mL F 22.0-322.0 HCT CALC HGBX3 2022-04-24 20:44:42 30.3 % F 42.0-52.0 HCT CALC HGBX3 2022-04-24 20:44:42 30.3 % F 42.0-52.0 Reticulocytes/100 erythrocytes in Blood by Automated count 2022-04-24 20:44:19 2.14 % F 0.8-2.1 Erythrocyte distribution width [Ratio] by Automated count 2022-04-24 20:44:19 15.4 % F 11.0-15.0 Hemoglobin [Mass/volume] in Blood 2022-04-24 20:44:19 10.1 g/dL F 14.0-18.0 Platelets [#/volume] in Blood by Automated count 2022-04-24 20:44:19 147 x 10^3 cells/uL F 150.0-400.0 MCH [Entitic mass] by Automated count 2022-04-24 20:44:19 30.2 pg F 27.0-31.0 MCHC [Mass/volume] by Automated count 2022-04-24 20:44:19 34.2 g/dL F 32.0-36.0 Erythrocytes [#/volume] in Blood by Automated count 2022-04-24 20:44:19 3.34 x 10'6 cells/uL F 4.6-6.2 Hematocrit [Volume Fraction] of Blood by Automated count 2022-04-24 20:44:19 29.5 % F 42.0-52.0 MCV [Entitic volume] by Automated count 2022-04-24 20:44:19 88.2 fL F 80.0-100.0 Reticulocytes/100 erythrocytes in Blood by Automated count 2022-04-24 20:44:19 2.14 % F 0.8-2.1 Erythrocyte distribution width [Ratio] by Automated count 2022-04-24 20:44:19 15.4 % F 11.0-15.0 Hemoglobin [Mass/volume] in Blood 2022-04-24 20:44:19 10.1 g/dL F 14.0-18.0 Platelets [#/volume] in Blood by Automated count 2022-04-24 20:44:19 147 x 10^3 cells/uL F 150.0-400.0 MCH [Entitic mass] by Automated count 2022-04-24 20:44:19 30.2 pg F 27.0-31.0 MCHC [Mass/volume] by Automated count 2022-04-24 20:44:19 34.2 g/dL F 32.0-36.0 Erythrocytes [#/volume] in Blood by Automated count 2022-04-24 20:44:19 3.34 x 10'6 cells/uL F 4.6-6.2 Hematocrit [Volume Fraction] of Blood by Automated count 2022-04-24 20:44:19 29.5 % F 42.0-52.0 MCV [Entitic volume] by Automated count 2022-04-24 20:44:19 88.2 fL F 80.0-100.0 IRON SATURATION 2022-04-03 04:22:39 29 % F [...] count 2022-04-02 14:41:01 15.1 % F 11.0-15.0 Platelets [#/volume] in Blood by Automated count 2022-04-02 14:41:01 143 x 10^3 cells/uL F 150.0-400.0 MCH [Entitic mass] by Automated count 2022-04-02 14:41:01 30.6 pg F 27.0-31.0 MCHC [Mass/volume] by Automated count 2022-04-02 14:41:01 34.6 g/dL F 32.0-36.0 Hemoglobin [Mass/volume] in Blood 2022-04-02 14:41:00 10.1 g/dL F 14.0-18.0 Erythrocytes [#/volume] in Blood by Automated count 2022-04-02 14:41:00 3.32 x 10'6 cells/uL F 4.6-6.2 Hematocrit [Volume [...] 2022-02-21 06:26:31 173 ug/dL F 75.0-360.0 Iron binding capacity.unsaturate d [Mass/volume] in Serum or Plasma 2022-02-21 06:26:31 173 ug/dL F 75.0-360.0 Iron [Mass/volume] in Serum or Plasma 2022-02-21 06:26:31 50 ug/dL F 65.0-175.0 Iron [Mass/volume] in Serum or Plasma 2022-02-21 [...] count 2022-02-21 04:21:41 1.38 % F 0.8-2.1 Erythrocyte distribution width [Ratio] by Automated count 2022-02-21 04:21:41 14.5 % F 11.0-15.0 Hemoglobin [Mass/volume] in Blood 2022-02-21 04:21:41 10.5 g/dL F 14.0-18.0 Platelets [#/volume] in Blood by Automated count 2022-02-21 04:21:41 144 x 10^3 cells/uL F 150.0-400.0 MCH [Entitic mass] by Automated count 2022-02-21 04:21:41 30.7 pg F 27.0-31.0 MCHC [Mass/volume] by Automated count 2022-02-21 04:21:41 34.7 g/dL F 32.0-36.0 Erythrocytes [#/volume] in Blood by Automated count 2022-02-21 04:21:41 3.41 x 10'6 cells/uL F 4.6-6.2 Hematocrit [Volume Fraction] of Blood by Automated count 2022-02-21 04:21:41 30.3 % F 42.0-52.0 MCV [Entitic volume] by Automated count 2022-02-21 04:21:41 88.7 fL F 80.0-100.0 Reticulocytes/100 erythrocytes in Blood by Automated count 2022-02-21 04:21:41 1.38 % F 0.8-2.1 Hemoglobin [Mass/volume] in Blood 2022-02-21 04:21:41 10.5 g/dL F 14.0-18.0 MCH [Entitic mass] by Automated count 2022-02-21 04:21:41 30.7 pg F 27.0-31.0 MCHC [Mass/volume] by Automated count 2022-02-21 04:21:41 34.7 g/dL F 32.0-36.0 Erythrocytes [#/volume] in Blood by Automated count 2022-02-21 04:21:41 3.41 x 10'6 cells/uL F 4.6-6.2 MCV [Entitic volume] by Automated count 2022-02-21 04:21:41 88.7 fL F 80.0-100.0 Erythrocyte distribution width [Ratio] by Automated count 2022-02-21 04:21:41 14.5 % F 11.0-15.0 Platelets [#/volume] in Blood by Automated count 2022-02-21 04:21:41 144 x 10^3 cells/uL F 150.0-400.0 Hematocrit [Volume Fraction] of Blood by Automated count 2022-02-21 04:21:41 30.3 % F 42.0-52.0 Reticulocytes/100 erythrocytes in Blood by Automated count 2022-02-21 04:21:41 1.38 % F 0.8-2.1 Erythrocyte distribution width [Ratio] by Automated count 2022-02-21 04:21:41 14.5 % F 11.0-15.0 Hemoglobin [Mass/volume] in Blood 2022-02-21 04:21:41 10.5 g/dL F 14.0-18.0 Platelets [#/volume] in Blood by Automated count 2022-02-21 04:21:41 144 x 10^3 cells/uL F 150.0-400.0 MCH [Entitic mass] by Automated count 2022-02-21 04:21:41 30.7 pg F 27.0-31.0 MCHC [Mass/volume] by Automated count 2022-02-21 04:21:41 34.7 g/dL F 32.0-36.0 Erythrocytes [#/volume] in Blood by Automated count 2022-02-21 04:21:41 3.41 x 10'6 cells/uL F 4.6-6.2 Hematocrit [Volume Fraction] of Blood by Automated count 2022-02-21 04:21:41 30.3 % F 42.0-52.0 MCV [Entitic volume] by Automated count 2022-02-21 04:21:41 88.7 fL F 80.0-100.0 Ferritin [Mass/volume] in Serum or Plasma 2022-02-21 02:43:55 742 ng/mL F 22.0-322.0 Ferritin [Mass/volume] in Serum or Plasma 2022-02-21 02:43:55 742 ng/mL F 22.0-322.0 Ferritin [Mass/volume] in Serum or Plasma 2022-02-21 02:43:55 742 ng/mL F 22.0-322.0 Iron [Mass/volume] in Serum or Plasma Iron binding capacity.unsaturate d [Mass/volume] in Serum or Plasma IRON SATURATION TIBC TIBC Iron binding capacity.unsaturate d [Mass/volume] in Serum or Plasma IRON SATURATION Iron [Mass/volume] in Serum or Plasma TIBC IRON SATURATION Iron [Mass/volume] in Serum or Plasma Iron binding capacity.unsaturate d [Mass/volume] in Serum or Plasma Iron [Mass/volume] in Serum or Plasma IRON SATURATION Iron binding capacity.unsaturate d [Mass/volume] in Serum or Plasma TIBC TIBC Iron [Mass/volume] in Serum or Plasma IRON SATURATION Iron binding capacity.unsaturate d [Mass/volume] in Serum or Plasma Hemoglobin [Mass/volume] in Blood Hemoglobin [Mass/volume] in Blood Hemoglobin [Mass/volume] in Blood Reticulocytes/100 erythrocytes in Blood by Automated count Ferritin [Mass/volume] in Serum or Plasma MCHC [Mass/volume] by Automated count MCV [Entitic volume] by Automated count Platelets [#/volume] in Blood by Automated count HCT CALC HGBX3 MCH [Entitic mass] by Automated count Erythrocyte distribution width [Ratio] by Automated count Hematocrit [Volume Fraction] of Blood by Automated count Erythrocytes [#/volume] in Blood by Automated count Hemoglobin [Mass/volume] in Blood HCT CALC HGBX3 Hematocrit [Volume Fraction] of Blood by Automated count Erythrocytes [#/volume] in Blood by Automated count MCV [Entitic volume] by Automated count Platelets [#/volume] in Blood by Automated count Erythrocyte distribution width [Ratio] by Automated count Reticulocytes/100 erythrocytes in Blood by Automated count Ferritin [Mass/volume] in Serum or Plasma MCHC [Mass/volume] by Automated count MCH [Entitic mass] by Automated count HCT CALC HGBX3 MCH [Entitic mass] by Automated count MCV [Entitic volume] by Automated count Reticulocytes/100 erythrocytes in Blood by Automated count Erythrocytes [#/volume] in Blood by Automated count MCHC [Mass/volume] by Automated count Hemoglobin [Mass/volume] in Blood Erythrocyte distribution width [Ratio] by Automated count Hematocrit [Volume Fraction] of Blood by Automated count Platelets [#/volume] in Blood by Automated count Ferritin [Mass/volume] in Serum or Plasma Erythrocyte distribution width [Ratio] by Automated count Hematocrit [Volume Fraction] of Blood by Automated count Erythrocytes [#/volume] in Blood by Automated count Hemoglobin [Mass/volume] in Blood MCV [Entitic volume] by Automated count MCH [Entitic mass] by Automated count MCHC [Mass/volume] by Automated count Platelets [#/volume] in Blood by Automated count Reticulocytes/100 erythrocytes in Blood by Automated count HCT CALC HGBX3 Ferritin [Mass/volume] in Serum or Plasma Erythrocyte distribution width [Ratio] by Automated count Hemoglobin [Mass/volume] in Blood MCV [Entitic volume] by Automated count Reticulocytes/100 erythrocytes in Blood by Automated count MCH [Entitic mass] by Automated count HCT CALC HGBX3 Ferritin [Mass/volume] in Serum or Plasma Hematocrit [Volume Fraction] of Blood by Automated count Platelets [#/volume] in Blood by Automated count MCHC [Mass/volume] by Automated count Erythrocytes [#/volume] in Blood by Automated count HCT CALC HGBX3 HCT CALC HGBX3 HCT CALC HGBX3 HCT CALC HGBX3 HCT CALC HGBX3 HCT CALC HGBX3 HCT CALC HGBX3 HCT CALC HGBX3 HCT CALC HGBX3 HCT CALC HGBX3 Comorbidities Description Draw Date Result/Unit Status Ref Range Result Comments Hemoglobin A1c/Hemoglobin.total in Blood 2022-06-23 05:51:03 8 %A1c F 0.0-5.6 Hemoglobin A1c/Hemoglobin.total in Blood 2022-06-23 05:51:03 8 %A1c F 0.0-5.6 FluidBP Description Draw Date Result/Unit Status Ref Range Result Comments Sodium [Moles/volume] in Serum or Plasma 2024-10-29 07:32:19 140 mEq/L F 136.0-145.0 Sodium [Moles/volume] in Serum or Plasma 2024-10-08 17:24:44 F Recollect - Quantity not sufficient Sodium [Moles/volume] in Serum or Plasma 2024-09-05 04:59:59 137 F Sodium [Moles/volume] in Serum or Plasma 2024-08-28 07:11:08 142 mEq/L F 136.0-145.0 Sodium [Moles/volume] in Serum or Plasma 2024-08-28 07:11:08 142 mEq/L F 136.0-145.0 Sodium [Moles/volume] in Serum or Plasma 2024-08-28 07:11:08 142 mEq/L F 136.0-145.0 Sodium [Moles/volume] in Serum or Plasma 2024-08-28 07:11:08 142 mEq/L F 136.0-145.0 Sodium [Moles/volume] in Serum or Plasma 2024-08-04 06:36:57 141 mEq/L F 136.0-145.0 Sodium [Moles/volume] in Serum or Plasma 2024-08-04 06:36:57 141 mEq/L F 136.0-145.0 Sodium [Moles/volume] in Serum or Plasma 2024-06-25 18:58:29 141 mEq/L F 132.0-146.0 Sodium [Moles/volume] in Serum or Plasma 2024-06-25 18:58:29 141 mEq/L F 132.0-146.0 Sodium [Moles/volume] in Serum or Plasma 2024-06-25 18:58:29 141 mEq/L F 132.0-146.0 Sodium [Moles/volume] in Serum or Plasma 2024-06-25 18:58:29 141 mEq/L F 132.0-146.0 Sodium [Moles/volume] in Serum or Plasma 2024-04-29 07:04:12 140 mEq/L F 132.0-146.0 Sodium [Moles/volume] in Serum or Plasma 2024-04-29 07:04:12 140 mEq/L F 132.0-146.0 Sodium [Moles/volume] in Serum or Plasma 2024-03-26 08:21:45 139 mEq/L F 132.0-146.0 Sodium [Moles/volume] in [...] 132.0-146.0 Sodium [Moles/volume] in Serum or Plasma Sodium [Moles/volume] in Serum or Plasma Sodium [Moles/volume] in Serum or Plasma Sodium [Moles/volume] in Serum or Plasma Sodium [Moles/volume] in Serum or Plasma General Description Draw Date Result/Unit Status Ref Range Result Comments [facility] 2024-10-29 06:34:24 3.6 g/day F Aspartate aminotransferase [Enzymatic activity/volume] in Serum or Plasma 2024-10-29 06:32:21 58 U/L F 0.0-33.0 Alanine aminotransferase [Enzymatic activity/volume] in Serum or Plasma 2024-10-29 06:32:21 61 U/L F 10.0-49.0 Aspartate aminotransferase [Enzymatic activity/volume] in Serum or Plasma 2024-10-10 04:59:59 68 U/L F 5-34 Alanine aminotransferase [Enzymatic activity/volume] in Serum or Plasma 2024-10-10 04:59:59 77 U/L F 5-55 Aspartate aminotransferase [Enzymatic activity/volume] in Serum or Plasma 2024-10-08 17:24:44 F Recollect - Quantity not sufficient Alanine aminotransferase [Enzymatic activity/volume] in Serum or Plasma 2024-10-08 17:24:44 F Recollect - Quantity not sufficient [facility] 2024-10-08 14:05:09 4.9 g/day F Aspartate aminotransferase [Enzymatic activity/volume] in Serum or Plasma 2024-09-05 04:59:59 26 F Alanine aminotransferase [Enzymatic activity/volume] in Serum or Plasma 2024-09-05 04:59:59 24 F Alanine aminotransferase [Enzymatic activity/volume] in Serum or Plasma 2024-08-28 06:45:07 28 U/L F 10.0-49.0 Alanine aminotransferase [Enzymatic activity/volume] in Serum or Plasma 2024-08-28 06:45:07 28 U/L F 10.0-49.0 Alanine aminotransferase [Enzymatic activity/volume] in Serum or Plasma 2024-08-28 06:45:07 28 U/L F 10.0-49.0 Alanine aminotransferase [Enzymatic activity/volume] in Serum or Plasma 2024-08-28 06:45:07 28 U/L F 10.0-49.0 Aspartate aminotransferase [Enzymatic activity/volume] in Serum or Plasma 2024-08-28 06:44:11 F Recollect - Hemolyzed specimen,Recollect - Hemolyzed specimen,Recollect - Hemolyzed specimen Aspartate aminotransferase [Enzymatic activity/volume] in Serum or Plasma 2024-08-28 06:44:11 F Recollect - Hemolyzed specimen Aspartate aminotransferase [Enzymatic activity/volume] in Serum or Plasma 2024-08-28 06:44:11 F Recollect - Hemolyzed specimen Aspartate aminotransferase [Enzymatic activity/volume] in Serum or Plasma 2024-08-28 06:44:11 F Recollect - Hemolyzed specimen Alanine aminotransferase [Enzymatic activity/volume] in Serum or Plasma 2024-08-03 14:33:21 11 U/L F 10.0-49.0 Aspartate aminotransferase [Enzymatic activity/volume] in Serum or Plasma 2024-08-03 14:33:21 46 U/L F 0.0-33.0 Alanine aminotransferase [Enzymatic activity/volume] in Serum or Plasma 2024-08-03 14:33:21 11 U/L F 10.0-49.0 Aspartate aminotransferase [Enzymatic activity/volume] in Serum or Plasma 2024-08-03 14:33:21 46 U/L F 0.0-33.0 [facility] 2024-07-09 14:47:28 5.9 g/day K [facility] 2024-07-09 14:47:28 5.9 g/day K [facility] 2024-07-09 14:47:28 5.9 g/day K [facility] 2024-07-09 14:47:28 5.9 g/day K [facility] 2024-06-25 14:07:56 4.8 g/day K [facility] 2024-06-25 14:07:56 4.8 g/day K [facility] 2024-06-25 14:07:56 4.8 g/day K [facility] 2024-06-25 14:07:56 4.8 g/day K Aspartate aminotransferase [Enzymatic activity/volume] in Serum or Plasma 2024-06-25 12:41:16 29 U/L F 0.0-33.0 Alanine aminotransferase [Enzymatic activity/volume] in Serum or Plasma 2024-06-25 12:41:16 22 U/L F 10.0-49.0 Alanine aminotransferase [Enzymatic activity/volume] in Serum or Plasma 2024-06-25 12:41:16 22 U/L F 10.0-49.0 Aspartate aminotransferase [Enzymatic activity/volume] in Serum or Plasma 2024-06-25 12:41:16 29 U/L F 0.0-33.0 Alanine aminotransferase [Enzymatic activity/volume] in Serum or Plasma 2024-06-25 12:41:16 22 U/L F 10.0-49.0 Aspartate aminotransferase [Enzymatic activity/volume] in Serum or Plasma 2024-06-25 12:41:16 29 U/L F 0.0-33.0 Alanine aminotransferase [Enzymatic activity/volume] in Serum or Plasma 2024-06-25 12:41:16 22 U/L F 10.0-49.0 Aspartate aminotransferase [Enzymatic activity/volume] in Serum or Plasma 2024-06-25 12:41:16 29 U/L F 0.0-33.0 Aspartate aminotransferase [Enzymatic activity/volume] in Serum or Plasma 2024-04-28 14:30:26 27 U/L F 0.0-33.0 Alanine aminotransferase [Enzymatic activity/volume] in Serum or Plasma 2024-04-28 14:30:26 14 U/L F 10.0-49.0 Aspartate aminotransferase [Enzymatic activity/volume] in Serum or Plasma 2024-04-28 14:30:26 27 U/L F 0.0-33.0 Alanine aminotransferase [Enzymatic activity/volume] in Serum or Plasma 2024-04-28 14:30:26 14 U/L F 10.0-49.0 Aspartate aminotransferase [Enzymatic activity/volume] in Serum or Plasma 2024-03-26 01:26:18 24 U/L F 0.0-33.0 Alanine aminotransferase [Enzymatic activity/volume] in Serum or Plasma 2024-03-26 01:26:18 22 U/L F 10.0-49.0 Aluminum [Mass/volume] in Serum or Plasma 2024-03-09 12:15:31 F Recollect - Quantity not sufficient,Source: Aluminum [Mass/volume] in Serum or Plasma 2024-03-09 12:15:31 F Recollect - Quantity not sufficient,Source: [facility] 2024-03-07 01:53:27 6.2 g/day F [facility] 2024-03-07 01:53:27 6.2 g/day F Aspartate aminotransferase [Enzymatic activity/volume] in [...] Plasma 2024-01-28 19:12:24 19 U/L F 10.0-49.0 Aspartate aminotransferase [Enzymatic activity/volume] in Serum or Plasma 2023-12-31 23:35:20 35 U/L F 0.0-33.0 Alanine aminotransferase [Enzymatic activity/volume] in Serum or Plasma 2023-12-31 23:35:20 19 U/L F 10.0-49.0 Aspartate aminotransferase [Enzymatic activity/volume] in Serum or Plasma 2023-12-31 23:35:20 35 U/L F 0.0-33.0 Alanine aminotransferase [Enzymatic activity/volume] in Serum or Plasma 2023-12-31 23:35:20 19 U/L F 10.0-49.0 Alanine aminotransferase [Enzymatic activity/volume] in Serum or Plasma 2023-11-20 00:49:13 21 U/L F 10.0-49.0 Aspartate aminotransferase [Enzymatic activity/volume] in Serum or Plasma 2023-11-20 00:49:13 37 U/L F 0.0-33.0 Aspartate aminotransferase [Enzymatic activity/volume] in Serum or Plasma 2023-11-20 00:49:13 37 U/L F 0.0-33.0 Alanine aminotransferase [Enzymatic activity/volume] in Serum or Plasma 2023-11-20 00:49:13 21 U/L F 10.0-49.0 Aspartate aminotransferase [Enzymatic activity/volume] in Serum or Plasma 2023-11-20 00:49:13 37 U/L F 0.0-33.0 Alanine aminotransferase [Enzymatic activity/volume] in Serum or Plasma 2023-11-20 00:49:13 21 U/L F 10.0-49.0 [facility] 2023-11-19 22:15:23 6.4 g/day F [facility] 2023-11-19 22:15:23 6.4 g/day F [facility] 2023-11-19 22:15:23 6.4 g/day F Aspartate aminotransferase [...] Plasma 2023-09-25 13:43:37 17 U/L F 10.0-49.0 [facility] 2023-08-26 21:26:12 8 g/day F [facility] 2023-08-26 21:26:12 8 g/day F [facility] 2023-08-26 21:26:12 8 g/day F [facility] 2023-08-26 21:26:12 8 g/day F [...] Plasma 2023-05-24 01:21:33 21 U/L F 10.0-49.0 [facility] 2023-05-23 13:13:09 4.4 g/day F [...] Plasma 2023-02-26 19:29:35 18 U/L F 10.0-49.0 Aluminum [Mass/volume] in Serum or Plasma 2023-02-25 [...] Plasma 2022-10-30 06:49:36 20 U/L F 10.0-49.0 Alanine aminotransferase [Enzymatic activity/volume] in Serum or Plasma 2022-10-30 06:49:36 20 U/L F 10.0-49.0 Aspartate aminotransferase [Enzymatic activity/volume] in Serum or Plasma 2022-10-30 06:49:36 25 U/L F 0.0-33.0 Aspartate aminotransferase [Enzymatic activity/volume] [...] Plasma 2022-08-28 04:35:20 15 U/L F 10.0-49.0 [facility] 2022-08-27 17:34:17 5 g/day F [...] Plasma 2022-05-25 23:33:20 40 U/L F 10.0-49.0 [facility] 2022-05-25 19:49:43 5.1 g/day F [facility] 2022-05-25 19:49:43 5.1 g/day F [facility] 2022-05-25 19:49:43 5.1 g/day F [facility] 2022-05-25 19:49:43 5.1 g/day F Aspartate aminotransferase [...] 2022-02-21 15:18:48 10 ug/L F 0.0-9.0 [facility] 2022-02-21 02:21:52 6.7 g/day F [facility] 2022-02-21 02:21:52 6.7 g/day F [facility] 2022-02-21 02:21:52 6.7 g/day F Aspartate aminotransferase [...] aminotransferase [Enzymatic activity/volume] in Serum or Plasma Aspartate aminotransferase [Enzymatic activity/volume] in Serum or Plasma Aspartate aminotransferase [Enzymatic activity/volume] in Serum or Plasma Alanine aminotransferase [Enzymatic activity/volume] in Serum or Plasma Aspartate aminotransferase [Enzymatic activity/volume] in Serum or Plasma Alanine aminotransferase [Enzymatic activity/volume] in Serum or Plasma Alanine aminotransferase [Enzymatic activity/volume] in Serum or Plasma Aspartate aminotransferase [Enzymatic activity/volume] in Serum or Plasma Alanine aminotransferase [Enzymatic activity/volume] in Serum or Plasma Aspartate aminotransferase [Enzymatic activity/volume] in Serum or Plasma [facility] InfectionVaccination Description Draw Date Result/Unit Status Ref Range Result Comments Basophils/100 leukocytes in Blood by Automated count 2024-10-29 19:47:10 0.3 % F Neutrophils/100 leukocytes in Blood by Automated count 2024-10-29 19:47:10 75.5 % F Neutrophils [#/volume] in Blood by Automated count 2024-10-29 19:47:10 4809 Cells/uL F 2000.0-8800.0 Monocytes [#/volume] in Blood by Automated count 2024-10-29 19:47:10 433 Cells/uL F 0.0-1100.0 Basophils [#/volume] in Blood by Automated count 2024-10-29 19:47:10 19 Cells/uL F 0.0-400.0 Lymphocytes/100 leukocytes in Blood by Automated count 2024-10-29 19:47:10 13.3 % F Monocytes/100 leukocytes in Blood by Automated count 2024-10-29 19:47:10 6.8 % F Eosinophils/100 leukocytes in Blood by Automated count 2024-10-29 19:47:10 4.1 % F Leukocytes [#/volume] in Blood by Automated count 2024-10-29 19:47:10 6.4 x 10^3 cells/uL F 4.0-11.0 Lymphocytes [#/volume] in Blood by Automated count 2024-10-29 19:47:10 847 Cells/uL F 620.0-3660.0 Eosinophils [#/volume] in Blood by Automated count 2024-10-29 19:47:10 261 Cells/uL F 0.0-700.0 Phosphate [Mass/volume] in Urine 2024-10-10 04:59:59 4.9 mg/dL F 2.8-5.1 Monocytes/100 leukocytes in Blood by Automated count 2024-10-08 13:18:10 6.1 % F Basophils/100 leukocytes in Blood by Automated count 2024-10-08 13:18:09 0.2 % F Eosinophils/100 leukocytes in Blood by Automated count 2024-10-08 13:18:09 2.7 % F Leukocytes [#/volume] in Blood by Automated count 2024-10-08 13:18:09 8.8 x 10^3 cells/uL F 4.0-11.0 Neutrophils/100 leukocytes in Blood by Automated count 2024-10-08 13:18:09 77.5 % F Lymphocytes/100 leukocytes in Blood by Automated count 2024-10-08 13:18:09 13.4 % F Monocytes [#/volume] in Blood by Automated count 2024-10-08 13:18:09 536 Cells/uL F 0.0-1100.0 Basophils [#/volume] in Blood by Automated count 2024-10-08 13:18:09 18 Cells/uL F 0.0-400.0 Eosinophils [#/volume] in Blood by Automated count 2024-10-08 13:18:09 237 Cells/uL F 0.0-700.0 Lymphocytes [#/volume] in Blood by Automated count 2024-10-08 13:18:09 1177 Cells/uL F 620.0-3660.0 Neutrophils [#/volume] in Blood by Automated count 2024-10-08 13:18:09 6804 Cells/uL F 2000.0-8800.0 Basophils/100 leukocytes in Blood by Automated count 2024-08-03 14:28:10 0.4 % F Leukocytes [#/volume] in Blood by Automated count 2024-08-03 14:28:10 7.5 x 10^3 cells/uL F 4.0-11.0 Monocytes [#/volume] in Blood by Automated count 2024-08-03 14:28:10 582 Cells/uL F 0.0-1100.0 Neutrophils/100 leukocytes in Blood by Automated count 2024-08-03 14:28:10 75.7 % F Lymphocytes/100 leukocytes in Blood by Automated count 2024-08-03 14:28:10 13.9 % F Monocytes/100 leukocytes in Blood by Automated count 2024-08-03 14:28:10 7.8 % F Eosinophils/100 leukocytes in Blood by Automated count 2024-08-03 14:28:10 2.1 % F Neutrophils [#/volume] in Blood by Automated count 2024-08-03 14:28:10 5647 Cells/uL F 2000.0-8800.0 Lymphocytes [#/volume] in Blood by Automated count 2024-08-03 14:28:10 1037 Cells/uL F 620.0-3660.0 Basophils [#/volume] in Blood by Automated count 2024-08-03 14:28:10 30 Cells/uL F 0.0-400.0 Eosinophils [#/volume] in Blood by Automated count 2024-08-03 14:28:10 157 Cells/uL F 0.0-700.0 Basophils/100 leukocytes in Blood by Automated count 2024-08-03 14:28:10 0.4 % F Neutrophils/100 leukocytes in Blood by Automated count 2024-08-03 14:28:10 75.7 % F Lymphocytes/100 leukocytes in Blood by Automated count 2024-08-03 14:28:10 13.9 % F Monocytes/100 leukocytes in Blood by Automated count 2024-08-03 14:28:10 7.8 % F Eosinophils/100 leukocytes in Blood by Automated count 2024-08-03 14:28:10 2.1 % F Leukocytes [#/volume] in Blood by Automated count 2024-08-03 14:28:10 7.5 x 10^3 cells/uL F 4.0-11.0 Neutrophils [#/volume] in Blood by Automated count 2024-08-03 14:28:10 5647 Cells/uL F 2000.0-8800.0 Lymphocytes [#/volume] in Blood by Automated count 2024-08-03 14:28:10 1037 Cells/uL F 620.0-3660.0 Monocytes [#/volume] in Blood by Automated count 2024-08-03 14:28:10 582 Cells/uL F 0.0-1100.0 Basophils [#/volume] in Blood by Automated count 2024-08-03 14:28:10 30 Cells/uL F 0.0-400.0 Eosinophils [#/volume] in Blood by Automated count 2024-08-03 14:28:10 157 Cells/uL F 0.0-700.0 Neutrophils/100 leukocytes in Blood by Automated count 2024-06-25 02:59:06 76.8 % F Monocytes/100 leukocytes in Blood by Automated count 2024-06-25 02:59:06 7.2 % F Basophils/100 leukocytes in Blood by Automated count 2024-06-25 02:59:06 0.3 % F Lymphocytes/100 leukocytes in Blood by Automated count 2024-06-25 02:59:06 14 % F Eosinophils/100 leukocytes in Blood by Automated count 2024-06-25 02:59:06 1.7 % F Monocytes [#/volume] in Blood by Automated count 2024-06-25 02:59:06 534 Cells/uL F 0.0-1100.0 Eosinophils [#/volume] in Blood by Automated count 2024-06-25 02:59:06 126 Cells/uL F 0.0-700.0 Basophils [#/volume] in Blood by Automated count 2024-06-25 02:59:06 22 Cells/uL F 0.0-400.0 Neutrophils [#/volume] in Blood by Automated count 2024-06-25 02:59:06 5699 Cells/uL F 2000.0-8800.0 Leukocytes [#/volume] in Blood by Automated count 2024-06-25 02:59:06 7.4 x 10^3 cells/uL F 4.0-11.0 Lymphocytes [#/volume] in Blood by Automated count 2024-06-25 02:59:06 1039 Cells/uL F 620.0-3660.0 Eosinophils/100 leukocytes in Blood by Automated count 2024-06-25 02:59:06 1.7 % F Neutrophils/100 leukocytes in Blood by Automated count 2024-06-25 02:59:06 76.8 % F Lymphocytes/100 leukocytes in Blood by Automated count 2024-06-25 02:59:06 14 % F Monocytes [#/volume] in Blood by Automated count 2024-06-25 02:59:06 534 Cells/uL F 0.0-1100.0 Basophils [#/volume] in Blood by Automated count 2024-06-25 02:59:06 22 Cells/uL F 0.0-400.0 Neutrophils [#/volume] in Blood by Automated count 2024-06-25 02:59:06 5699 Cells/uL F 2000.0-8800.0 Lymphocytes [#/volume] in Blood by Automated count 2024-06-25 02:59:06 1039 Cells/uL F 620.0-3660.0 Monocytes/100 leukocytes in Blood by Automated count 2024-06-25 02:59:06 7.2 % F Basophils/100 leukocytes in Blood by Automated count 2024-06-25 02:59:06 0.3 % F Eosinophils [#/volume] in Blood by Automated count 2024-06-25 02:59:06 126 Cells/uL F 0.0-700.0 Leukocytes [#/volume] in Blood by Automated count 2024-06-25 02:59:06 7.4 x 10^3 cells/uL F 4.0-11.0 Basophils/100 leukocytes in Blood by Automated count 2024-06-25 02:59:06 0.3 % F Neutrophils/100 leukocytes in Blood by Automated count 2024-06-25 02:59:06 76.8 % F Lymphocytes/100 leukocytes in Blood by Automated count 2024-06-25 02:59:06 14 % F Monocytes/100 leukocytes in Blood by Automated count 2024-06-25 02:59:06 7.2 % F Eosinophils/100 leukocytes in Blood by Automated count 2024-06-25 02:59:06 1.7 % F Leukocytes [#/volume] in Blood by Automated count 2024-06-25 02:59:06 7.4 x 10^3 cells/uL F 4.0-11.0 Neutrophils [#/volume] in Blood by Automated count 2024-06-25 02:59:06 5699 Cells/uL F 2000.0-8800.0 Monocytes [#/volume] in Blood by Automated count 2024-06-25 02:59:06 534 Cells/uL F 0.0-1100.0 Lymphocytes [#/volume] in Blood by Automated count 2024-06-25 02:59:06 1039 Cells/uL F 620.0-3660.0 Basophils [#/volume] in Blood by Automated count 2024-06-25 02:59:06 22 Cells/uL F 0.0-400.0 Eosinophils [#/volume] in Blood by Automated count 2024-06-25 02:59:06 126 Cells/uL F 0.0-700.0 Leukocytes [#/volume] in Blood by Automated count 2024-06-25 02:59:06 7.4 x 10^3 cells/uL F 4.0-11.0 Neutrophils [#/volume] in Blood by Automated count 2024-06-25 02:59:06 5699 Cells/uL F 2000.0-8800.0 Monocytes [#/volume] in Blood by Automated count 2024-06-25 02:59:06 534 Cells/uL F 0.0-1100.0 Neutrophils/100 leukocytes in Blood by Automated count 2024-06-25 02:59:06 76.8 % F Basophils [#/volume] in Blood by Automated count 2024-06-25 02:59:06 22 Cells/uL F 0.0-400.0 Monocytes/100 leukocytes in Blood by Automated count 2024-06-25 02:59:06 7.2 % F Lymphocytes/100 leukocytes in Blood by Automated count 2024-06-25 02:59:06 14 % F Eosinophils [#/volume] in Blood by Automated count 2024-06-25 02:59:06 126 Cells/uL F 0.0-700.0 Lymphocytes [#/volume] in Blood by Automated count 2024-06-25 02:59:06 1039 Cells/uL F 620.0-3660.0 Eosinophils/100 leukocytes in Blood by Automated count 2024-06-25 02:59:06 1.7 % F Basophils/100 leukocytes in Blood by Automated count 2024-06-25 02:59:06 0.3 % F Eosinophils [#/volume] in Blood by Automated count 2024-04-28 14:12:12 85 Cells/uL F 0.0-700.0 Neutrophils/100 leukocytes in Blood by Automated count 2024-04-28 14:12:12 71.7 % F Monocytes/100 leukocytes in Blood by Automated count 2024-04-28 14:12:12 8 % F Lymphocytes/100 leukocytes in Blood by Automated count 2024-04-28 14:12:12 18 % F Monocytes [#/volume] in Blood by Automated count 2024-04-28 14:12:12 377 Cells/uL F 0.0-1100.0 Basophils [#/volume] in Blood by Automated count 2024-04-28 14:12:12 19 Cells/uL F 0.0-400.0 Leukocytes [#/volume] in Blood by Automated count 2024-04-28 14:12:12 4.7 x 10^3 cells/uL F 4.0-11.0 Lymphocytes/100 leukocytes in Blood by Automated count 2024-04-28 14:12:12 18 % F Monocytes/100 leukocytes in Blood by Automated count 2024-04-28 14:12:12 8 % F Neutrophils/100 leukocytes in Blood by Automated count 2024-04-28 14:12:12 71.7 % F Monocytes [#/volume] in Blood by Automated count 2024-04-28 14:12:12 377 Cells/uL F 0.0-1100.0 Eosinophils [#/volume] in Blood by Automated count 2024-04-28 14:12:12 85 Cells/uL F 0.0-700.0 Basophils [#/volume] in Blood by Automated count 2024-04-28 14:12:12 19 Cells/uL F 0.0-400.0 Leukocytes [#/volume] in Blood by Automated count 2024-04-28 14:12:12 4.7 x 10^3 cells/uL F 4.0-11.0 Basophils/100 leukocytes in Blood by Automated count 2024-04-28 14:12:10 0.4 % F Neutrophils [#/volume] in Blood by Automated count 2024-04-28 14:12:10 3377 Cells/uL F 2000.0-8800.0 Eosinophils/100 leukocytes in Blood by Automated count 2024-04-28 14:12:10 1.8 % F Lymphocytes [#/volume] in Blood by Automated count 2024-04-28 14:12:10 848 Cells/uL F 620.0-3660.0 Basophils/100 leukocytes in Blood by Automated count 2024-04-28 14:12:10 0.4 % F Eosinophils/100 leukocytes in Blood by Automated count 2024-04-28 14:12:10 1.8 % F Neutrophils [#/volume] in Blood by Automated count 2024-04-28 14:12:10 3377 Cells/uL F 2000.0-8800.0 Lymphocytes [#/volume] in Blood by Automated count 2024-04-28 14:12:10 848 Cells/uL F 620.0-3660.0 Neutrophils/100 leukocytes in Blood by Automated count 2024-03-25 21:35:29 77.8 % F Monocytes/100 leukocytes in Blood by Automated count 2024-03-25 21:35:29 8.1 % F Basophils/100 leukocytes in Blood by Automated count 2024-03-25 21:35:26 0.3 % F Eosinophils/100 leukocytes in Blood by Automated count 2024-03-25 21:35:26 0.9 % F Lymphocytes/100 leukocytes in Blood by Automated count 2024-03-25 21:35:26 12.9 % F Monocytes [#/volume] in Blood by Automated count 2024-03-25 21:35:26 667 Cells/uL F 0.0-1100.0 Basophils [#/volume] in Blood by Automated count 2024-03-25 21:35:26 25 Cells/uL F 0.0-400.0 Eosinophils [#/volume] in Blood by Automated count 2024-03-25 21:35:26 74 Cells/uL F 0.0-700.0 Neutrophils [#/volume] in Blood by Automated count 2024-03-25 21:35:26 6403 Cells/uL F 2000.0-8800.0 Leukocytes [#/volume] in Blood by Automated count 2024-03-25 21:35:26 8.2 x 10^3 cells/uL F 4.0-11.0 Lymphocytes [#/volume] in Blood by Automated count 2024-03-25 21:35:26 1062 Cells/uL F 620.0-3660.0 Basophils/100 leukocytes in Blood by Automated count 2024-03-07 03:08:24 0.5 % F Monocytes/100 leukocytes in Blood by Automated count 2024-03-07 03:08:24 8.2 % F Lymphocytes/100 leukocytes in Blood by Automated count 2024-03-07 03:08:24 15.9 % F Neutrophils/100 leukocytes in Blood by Automated count 2024-03-07 03:08:24 74 % F Eosinophils/100 leukocytes in Blood by Automated count 2024-03-07 03:08:24 1.4 % F Monocytes [#/volume] in Blood by Automated count 2024-03-07 03:08:24 430 Cells/uL F 0.0-1100.0 Basophils [#/volume] in Blood by Automated count 2024-03-07 03:08:24 26 Cells/uL F 0.0-400.0 Eosinophils [#/volume] in Blood by Automated count 2024-03-07 03:08:24 73 Cells/uL F 0.0-700.0 Neutrophils [#/volume] in Blood by Automated count 2024-03-07 03:08:24 3878 Cells/uL F 2000.0-8800.0 Leukocytes [#/volume] in Blood by Automated count 2024-03-07 03:08:24 5.2 x 10^3 cells/uL F 4.0-11.0 Lymphocytes [#/volume] in Blood by Automated count 2024-03-07 03:08:24 833 Cells/uL F 620.0-3660.0 Basophils/100 leukocytes in Blood by Automated count 2024-03-07 03:08:24 0.5 % F Lymphocytes/100 leukocytes in Blood by Automated count 2024-03-07 03:08:24 15.9 % F Monocytes/100 leukocytes in Blood by Automated count 2024-03-07 03:08:24 8.2 % F Neutrophils/100 leukocytes in Blood by Automated count 2024-03-07 03:08:24 74 % F Eosinophils/100 leukocytes in Blood by Automated count 2024-03-07 03:08:24 1.4 % F Monocytes [#/volume] in Blood by Automated count 2024-03-07 03:08:24 430 Cells/uL F 0.0-1100.0 Basophils [#/volume] in Blood by Automated count 2024-03-07 03:08:24 26 Cells/uL F 0.0-400.0 Eosinophils [#/volume] in Blood by Automated count 2024-03-07 03:08:24 73 Cells/uL F 0.0-700.0 Neutrophils [#/volume] in Blood by Automated count 2024-03-07 03:08:24 3878 Cells/uL F 2000.0-8800.0 Leukocytes [#/volume] in Blood by Automated count 2024-03-07 03:08:24 5.2 x 10^3 cells/uL F 4.0-11.0 Lymphocytes [#/volume] in Blood by Automated count 2024-03-07 03:08:24 833 Cells/uL F 620.0-3660.0 Lymphocytes/100 leukocytes in Blood by Automated count 2024-01-29 00:28:26 12.9 % F Leukocytes [#/volume] in Blood by Automated count 2024-01-29 00:28:26 5.6 x 10^3 cells/uL F 4.0-11.0 Basophils/100 leukocytes in Blood by Automated count 2024-01-29 00:28:24 0.3 % F Eosinophils/100 leukocytes in Blood by Automated count 2024-01-29 00:28:24 0.9 % F Neutrophils/100 leukocytes in Blood by Automated count 2024-01-29 00:28:24 78.2 % F Monocytes/100 leukocytes in Blood by Automated count 2024-01-29 00:28:24 7.7 % F Monocytes [#/volume] in Blood by Automated count 2024-01-29 00:28:24 430 Cells/uL F 0.0-1100.0 Basophils [#/volume] in Blood by Automated count 2024-01-29 00:28:24 17 Cells/uL F 0.0-400.0 Eosinophils [#/volume] in Blood by Automated count 2024-01-29 00:28:24 50 Cells/uL F 0.0-700.0 Neutrophils [#/volume] in Blood by Automated count 2024-01-29 00:28:24 4371 Cells/uL F 2000.0-8800.0 Lymphocytes [#/volume] in Blood by Automated count 2024-01-29 00:28:24 721 Cells/uL F 620.0-3660.0 Lymphocytes/100 leukocytes in Blood by Automated count 2024-01-01 04:52:13 17.6 % F Monocytes/100 leukocytes in Blood by Automated count 2024-01-01 04:52:13 9.3 % F Basophils/100 leukocytes in Blood by Automated count 2024-01-01 04:52:13 0.5 % F Eosinophils/100 leukocytes in Blood by Automated count 2024-01-01 04:52:13 1.1 % F Neutrophils/100 leukocytes in Blood by Automated count 2024-01-01 04:52:13 71.5 % F Monocytes [#/volume] in Blood by Automated count 2024-01-01 04:52:13 470 Cells/uL F 0.0-1100.0 Basophils [#/volume] in Blood by Automated count 2024-01-01 04:52:13 25 Cells/uL F 0.0-400.0 Eosinophils [#/volume] in Blood by Automated count 2024-01-01 04:52:13 56 Cells/uL F 0.0-700.0 Neutrophils [#/volume] in Blood by Automated count 2024-01-01 04:52:13 3611 Cells/uL F 2000.0-8800.0 Leukocytes [#/volume] in Blood by Automated count 2024-01-01 04:52:13 5 x 10^3 cells/uL F 4.0-11.0 Lymphocytes [#/volume] in Blood by Automated count 2024-01-01 04:52:13 889 Cells/uL F 620.0-3660.0 Lymphocytes/100 leukocytes in Blood by Automated count 2024-01-01 04:52:13 17.6 % F Monocytes/100 leukocytes in Blood by Automated count 2024-01-01 04:52:13 9.3 % F Basophils/100 leukocytes in Blood by Automated count 2024-01-01 04:52:13 0.5 % F Neutrophils/100 leukocytes in Blood by Automated count 2024-01-01 04:52:13 71.5 % F Eosinophils/100 leukocytes in Blood by Automated count 2024-01-01 04:52:13 1.1 % F Monocytes [#/volume] in Blood by Automated count 2024-01-01 04:52:13 470 Cells/uL F 0.0-1100.0 Basophils [#/volume] in Blood by Automated count 2024-01-01 04:52:13 25 Cells/uL F 0.0-400.0 Eosinophils [#/volume] in Blood by Automated count 2024-01-01 04:52:13 56 Cells/uL F 0.0-700.0 Neutrophils [#/volume] in Blood by Automated count 2024-01-01 04:52:13 3611 Cells/uL F 2000.0-8800.0 Leukocytes [#/volume] in Blood by Automated count 2024-01-01 04:52:13 5 x 10^3 cells/uL F 4.0-11.0 Lymphocytes [#/volume] in Blood by Automated count 2024-01-01 04:52:13 889 Cells/uL F 620.0-3660.0 Neutrophils/100 leukocytes in Blood by Automated count 2023-11-19 22:37:12 77 % F Lymphocytes/100 leukocytes in Blood by Automated count 2023-11-19 22:37:12 12.7 % F Neutrophils [#/volume] in Blood by Automated count 2023-11-19 22:37:12 4966 Cell/uL F 2000.0-8800.0 Leukocytes [#/volume] in Blood by Automated count 2023-11-19 22:37:12 6.4 x 10^3 cells/uL F 4.0-11.0 Lymphocytes [#/volume] in Blood by Automated count 2023-11-19 22:37:12 819 Cell/uL F 620.0-3660.0 Eosinophils/100 leukocytes in Blood by Automated count 2023-11-19 22:37:12 0.8 % F Monocytes/100 leukocytes in Blood by Automated count 2023-11-19 22:37:12 9.2 % F Basophils/100 leukocytes in Blood by Automated count 2023-11-19 22:37:12 0.3 % F Basophils [#/volume] in Blood by Automated count 2023-11-19 22:37:12 19 Cell/uL F 0.0-400.0 Monocytes [#/volume] in Blood by Automated count 2023-11-19 22:37:12 593 Cell/uL F 0.0-1100.0 Eosinophils [#/volume] in Blood by Automated count 2023-11-19 22:37:12 52 Cell/uL F 0.0-700.0 Lymphocytes/100 leukocytes in Blood by Automated count 2023-11-19 22:37:12 12.7 % F Neutrophils/100 leukocytes in Blood by Automated count 2023-11-19 22:37:12 77 % F Basophils/100 leukocytes in Blood by Automated count 2023-11-19 22:37:12 0.3 % F Eosinophils/100 leukocytes in Blood by Automated count 2023-11-19 22:37:12 0.8 % F Monocytes/100 leukocytes in Blood by Automated count 2023-11-19 22:37:12 9.2 % F Monocytes [#/volume] in Blood by Automated count 2023-11-19 22:37:12 593 Cell/uL F 0.0-1100.0 Basophils [#/volume] in Blood by Automated count 2023-11-19 22:37:12 19 Cell/uL F 0.0-400.0 Eosinophils [#/volume] in Blood by Automated count 2023-11-19 22:37:12 52 Cell/uL F 0.0-700.0 Neutrophils [#/volume] in Blood by Automated count 2023-11-19 22:37:12 4966 Cell/uL F 2000.0-8800.0 Leukocytes [#/volume] in Blood by Automated count 2023-11-19 22:37:12 6.4 x 10^3 cells/uL F 4.0-11.0 Lymphocytes [#/volume] in Blood by Automated count 2023-11-19 22:37:12 819 Cell/uL F 620.0-3660.0 Lymphocytes/100 leukocytes in Blood by Automated count 2023-11-19 22:37:12 12.7 % F Neutrophils/100 leukocytes in Blood by Automated count 2023-11-19 22:37:12 77 % F Basophils/100 leukocytes in Blood by Automated count 2023-11-19 22:37:12 0.3 % F Monocytes/100 leukocytes in Blood by Automated count 2023-11-19 22:37:12 9.2 % F Eosinophils/100 leukocytes in Blood by Automated count 2023-11-19 22:37:12 0.8 % F Monocytes [#/volume] in Blood by Automated count 2023-11-19 22:37:12 593 Cell/uL F 0.0-1100.0 Basophils [#/volume] in Blood by Automated count 2023-11-19 22:37:12 19 Cell/uL F 0.0-400.0 Eosinophils [#/volume] in Blood by Automated count 2023-11-19 22:37:12 52 Cell/uL F 0.0-700.0 Neutrophils [#/volume] in Blood by Automated count 2023-11-19 22:37:12 4966 Cell/uL F 2000.0-8800.0 Leukocytes [#/volume] in Blood by Automated count 2023-11-19 22:37:12 6.4 x 10^3 cells/uL F 4.0-11.0 Lymphocytes [#/volume] in Blood by Automated count 2023-11-19 22:37:12 819 Cell/uL F 620.0-3660.0 Basophils/100 leukocytes in Blood by Automated count 2023-10-23 23:02:22 0.2 % F Eosinophils/100 leukocytes in Blood by Automated count 2023-10-23 23:02:22 1.1 % F Neutrophils/100 leukocytes in Blood by Automated count 2023-10-23 23:02:22 80.3 % F Monocytes/100 leukocytes in Blood by Automated count 2023-10-23 23:02:22 7.8 % F Lymphocytes/100 leukocytes in Blood by Automated count 2023-10-23 23:02:22 10.6 % F Monocytes [#/volume] in Blood by Automated count 2023-10-23 23:02:22 605 Cell/uL F 0.0-1100.0 Basophils [#/volume] in Blood by Automated count 2023-10-23 23:02:22 16 Cell/uL F 0.0-400.0 Eosinophils [#/volume] in Blood by Automated count 2023-10-23 23:02:22 85 Cell/uL F 0.0-700.0 Neutrophils [#/volume] in Blood by Automated count 2023-10-23 23:02:22 6231 Cell/uL F 2000.0-8800.0 Leukocytes [#/volume] in Blood by Automated count 2023-10-23 23:02:22 7.8 x 10^3 cells/uL F 4.0-11.0 Lymphocytes [#/volume] in Blood by Automated count 2023-10-23 23:02:22 823 Cell/uL F 620.0-3660.0 Eosinophils/100 leukocytes in Blood by Automated count 2023-10-23 23:02:22 1.1 % F Neutrophils/100 leukocytes in Blood by Automated count 2023-10-23 23:02:22 80.3 % F Basophils/100 leukocytes in Blood by Automated count 2023-10-23 23:02:22 0.2 % F Monocytes/100 leukocytes in Blood by Automated count 2023-10-23 23:02:22 7.8 % F Lymphocytes/100 leukocytes in Blood by Automated count 2023-10-23 23:02:22 10.6 % F Basophils [#/volume] in Blood by Automated count 2023-10-23 23:02:22 16 Cell/uL F 0.0-400.0 Monocytes [#/volume] in Blood by Automated count 2023-10-23 23:02:22 605 Cell/uL F 0.0-1100.0 Eosinophils [#/volume] in Blood by Automated count 2023-10-23 23:02:22 85 Cell/uL F 0.0-700.0 Neutrophils [#/volume] in Blood by Automated count 2023-10-23 23:02:22 6231 Cell/uL F 2000.0-8800.0 Leukocytes [#/volume] in Blood by Automated count 2023-10-23 23:02:22 7.8 x 10^3 cells/uL F 4.0-11.0 Lymphocytes [#/volume] in Blood by Automated count 2023-10-23 23:02:22 823 Cell/uL F 620.0-3660.0 Lymphocytes/100 leukocytes in Blood by Automated count 2023-09-25 13:33:39 18 % F Monocytes/100 leukocytes in Blood by Automated count 2023-09-25 13:33:39 8.2 % F Neutrophils/100 leukocytes in Blood by Automated count 2023-09-25 13:33:39 71.8 % F Basophils/100 leukocytes in Blood by Automated count 2023-09-25 13:33:39 1 % F Eosinophils/100 leukocytes in Blood by Automated count 2023-09-25 13:33:39 1 % F Monocytes [#/volume] in Blood by Automated count 2023-09-25 13:33:39 560 Cell/uL F 0.0-1100.0 Basophils [#/volume] in Blood by Automated count 2023-09-25 13:33:39 68 Cell/uL F 0.0-400.0 Eosinophils [#/volume] in Blood by Automated count 2023-09-25 13:33:39 68 Cell/uL F 0.0-700.0 Neutrophils [#/volume] in Blood by Automated count 2023-09-25 13:33:39 4904 Cell/uL F 2000.0-8800.0 Leukocytes [#/volume] in Blood by Automated count 2023-09-25 13:33:39 6.8 x 10^3 cells/uL F 4.0-11.0 Lymphocytes [#/volume] in Blood by Automated count 2023-09-25 13:33:39 1229 Cell/uL F 620.0-3660.0 Neutrophils/100 leukocytes in Blood by Automated count 2023-09-25 13:33:39 71.8 % F Basophils/100 leukocytes in Blood by Automated count 2023-09-25 13:33:39 1 % F Monocytes/100 leukocytes in Blood by Automated count 2023-09-25 13:33:39 8.2 % F Lymphocytes/100 leukocytes in Blood by Automated count 2023-09-25 13:33:39 18 % F Eosinophils/100 leukocytes in Blood by Automated count 2023-09-25 13:33:39 1 % F Monocytes [#/volume] in Blood by Automated count 2023-09-25 13:33:39 560 Cell/uL F 0.0-1100.0 Eosinophils [#/volume] in Blood by Automated count 2023-09-25 13:33:39 68 Cell/uL F 0.0-700.0 Basophils [#/volume] in Blood by Automated count 2023-09-25 13:33:39 68 Cell/uL F 0.0-400.0 Neutrophils [#/volume] in Blood by Automated count 2023-09-25 13:33:39 4904 Cell/uL F 2000.0-8800.0 Leukocytes [#/volume] in Blood by Automated count 2023-09-25 13:33:39 6.8 x 10^3 cells/uL F 4.0-11.0 Lymphocytes [#/volume] in Blood by Automated count 2023-09-25 13:33:39 1229 Cell/uL F 620.0-3660.0 Basophils/100 leukocytes in Blood by Automated count 2023-08-27 01:36:52 0.2 % F Eosinophils/100 leukocytes in Blood by Automated count 2023-08-27 01:36:52 2.2 % F Neutrophils/100 leukocytes in Blood by Automated count 2023-08-27 01:36:52 79 % F Lymphocytes/100 leukocytes in Blood by Automated count 2023-08-27 01:36:52 10.8 % F Monocytes/100 leukocytes in Blood by Automated count 2023-08-27 01:36:52 7.8 % F Monocytes [#/volume] in Blood by Automated count 2023-08-27 01:36:52 718 Cell/uL F 0.0-1100.0 Basophils [#/volume] in Blood by Automated count 2023-08-27 01:36:52 18 Cell/uL F 0.0-400.0 Eosinophils [#/volume] in Blood by Automated count 2023-08-27 01:36:52 203 Cell/uL F 0.0-700.0 Neutrophils [#/volume] in Blood by Automated count 2023-08-27 01:36:52 7276 Cell/uL F 2000.0-8800.0 Leukocytes [#/volume] in Blood by Automated count 2023-08-27 01:36:52 9.2 x 10^3 cells/uL F 4.0-11.0 Lymphocytes [#/volume] in Blood by Automated count 2023-08-27 01:36:52 995 Cell/uL F 620.0-3660.0 Eosinophils/100 leukocytes in Blood by Automated count 2023-08-27 01:36:52 2.2 % F Lymphocytes/100 leukocytes in Blood by Automated count 2023-08-27 01:36:52 10.8 % F Basophils/100 leukocytes in Blood by Automated count 2023-08-27 01:36:52 0.2 % F Neutrophils [#/volume] in Blood by Automated count 2023-08-27 01:36:52 7276 Cell/uL F 2000.0-8800.0 Lymphocytes [#/volume] in Blood by Automated count 2023-08-27 01:36:52 995 Cell/uL F 620.0-3660.0 Neutrophils/100 leukocytes in Blood by Automated count 2023-08-27 01:36:52 79 % F Monocytes/100 leukocytes in Blood by Automated count 2023-08-27 01:36:52 7.8 % F Monocytes [#/volume] in Blood by Automated count 2023-08-27 01:36:52 718 Cell/uL F 0.0-1100.0 Eosinophils [#/volume] in Blood by Automated count 2023-08-27 01:36:52 203 Cell/uL F 0.0-700.0 Basophils [#/volume] in Blood by Automated count 2023-08-27 01:36:52 18 Cell/uL F 0.0-400.0 Leukocytes [#/volume] in Blood by Automated count 2023-08-27 01:36:52 9.2 x 10^3 cells/uL F 4.0-11.0 Eosinophils/100 leukocytes in Blood by Automated count 2023-08-27 01:36:52 2.2 % F Neutrophils/100 leukocytes in Blood by Automated count 2023-08-27 01:36:52 79 % F Monocytes/100 leukocytes in Blood by Automated count 2023-08-27 01:36:52 7.8 % F Lymphocytes/100 leukocytes in Blood by Automated count 2023-08-27 01:36:52 10.8 % F Basophils/100 leukocytes in Blood by Automated count 2023-08-27 01:36:52 0.2 % F Monocytes [#/volume] in Blood by Automated count 2023-08-27 01:36:52 718 Cell/uL F 0.0-1100.0 Eosinophils [#/volume] in Blood by Automated count 2023-08-27 01:36:52 203 Cell/uL F 0.0-700.0 Basophils [#/volume] in Blood by Automated count 2023-08-27 01:36:52 18 Cell/uL F 0.0-400.0 Neutrophils [#/volume] in Blood by Automated count 2023-08-27 01:36:52 7276 Cell/uL F 2000.0-8800.0 Leukocytes [#/volume] in Blood by Automated count 2023-08-27 01:36:52 9.2 x 10^3 cells/uL F 4.0-11.0 Lymphocytes [#/volume] in Blood by Automated count 2023-08-27 01:36:52 995 Cell/uL F 620.0-3660.0 Eosinophils/100 leukocytes in Blood by Automated count 2023-08-27 01:36:52 2.2 % F Monocytes/100 leukocytes in Blood by Automated count 2023-08-27 01:36:52 7.8 % F Lymphocytes/100 leukocytes in Blood by Automated count 2023-08-27 01:36:52 10.8 % F Basophils/100 leukocytes in Blood by Automated count 2023-08-27 01:36:52 0.2 % F Neutrophils/100 leukocytes in Blood by Automated count 2023-08-27 01:36:52 79 % F Monocytes [#/volume] in Blood by Automated count 2023-08-27 01:36:52 718 Cell/uL F 0.0-1100.0 Basophils [#/volume] in Blood by Automated count 2023-08-27 01:36:52 18 Cell/uL F 0.0-400.0 Eosinophils [#/volume] in Blood by Automated count 2023-08-27 01:36:52 203 Cell/uL F 0.0-700.0 Neutrophils [#/volume] in Blood by Automated count 2023-08-27 01:36:52 7276 Cell/uL F 2000.0-8800.0 Leukocytes [#/volume] in Blood by Automated count 2023-08-27 01:36:52 9.2 x 10^3 cells/uL F 4.0-11.0 Lymphocytes [#/volume] in Blood by Automated count 2023-08-27 01:36:52 995 Cell/uL F 620.0-3660.0 Basophils/100 leukocytes in Blood by Automated count 2023-07-24 22:29:42 0.6 % F Monocytes/100 leukocytes in Blood by Automated count 2023-07-24 22:29:42 8.7 % F Eosinophils/100 leukocytes in Blood by Automated count 2023-07-24 22:29:42 0.9 % F Lymphocytes/100 leukocytes in Blood by Automated count 2023-07-24 22:29:42 16.9 % F Neutrophils/100 leukocytes in Blood by Automated count 2023-07-24 22:29:42 72.8 % F Monocytes [#/volume] in Blood by Automated count 2023-07-24 22:29:42 512 Cell/uL F 0.0-1100.0 Basophils [#/volume] in Blood by Automated count 2023-07-24 22:29:42 35 Cell/uL F 0.0-400.0 Eosinophils [#/volume] in Blood by Automated count 2023-07-24 22:29:42 53 Cell/uL F 0.0-700.0 Neutrophils [#/volume] in Blood by Automated count 2023-07-24 22:29:42 4288 Cell/uL F 2000.0-8800.0 Leukocytes [#/volume] in Blood by Automated count 2023-07-24 22:29:42 5.9 x 10^3 cells/uL F 4.0-11.0 Lymphocytes [#/volume] in Blood by Automated count 2023-07-24 22:29:42 995 Cell/uL F 620.0-3660.0 Monocytes/100 leukocytes in Blood by Automated count 2023-07-24 22:29:42 8.7 % F Basophils/100 leukocytes in Blood by Automated count 2023-07-24 22:29:42 0.6 % F Lymphocytes/100 leukocytes in Blood by Automated count 2023-07-24 22:29:42 16.9 % F Eosinophils/100 leukocytes in Blood by Automated count 2023-07-24 22:29:42 0.9 % F Neutrophils/100 leukocytes in Blood by Automated count 2023-07-24 22:29:42 72.8 % F Monocytes [#/volume] in Blood by Automated count 2023-07-24 22:29:42 512 Cell/uL F 0.0-1100.0 Basophils [#/volume] in Blood by Automated count 2023-07-24 22:29:42 35 Cell/uL F 0.0-400.0 Eosinophils [#/volume] in Blood by Automated count 2023-07-24 22:29:42 53 Cell/uL F 0.0-700.0 Neutrophils [#/volume] in Blood by Automated count 2023-07-24 22:29:42 4288 Cell/uL F 2000.0-8800.0 Leukocytes [#/volume] in Blood by Automated count 2023-07-24 22:29:42 5.9 x 10^3 cells/uL F 4.0-11.0 Lymphocytes [#/volume] in Blood by Automated count 2023-07-24 22:29:42 995 Cell/uL F 620.0-3660.0 Neutrophils/100 leukocytes in Blood by Automated count 2023-06-28 15:13:34 76.8 % F Monocytes/100 leukocytes in Blood by Automated count 2023-06-28 15:13:34 6.9 % F Lymphocytes/100 leukocytes in Blood by Automated count 2023-06-28 15:13:34 13.4 % F Basophils/100 leukocytes in Blood by Automated count 2023-06-28 15:13:34 1 % F Eosinophils/100 leukocytes in Blood by Automated count 2023-06-28 15:13:34 2 % F Monocytes [#/volume] in Blood by Automated count 2023-06-28 15:13:34 415 Cell/uL F 0.0-1100.0 Eosinophils [#/volume] in Blood by Automated count 2023-06-28 15:13:34 120 Cell/uL F 0.0-700.0 Basophils [#/volume] in Blood by Automated count 2023-06-28 15:13:34 60 Cell/uL F 0.0-400.0 Neutrophils [#/volume] in Blood by Automated count 2023-06-28 15:13:34 4616 Cell/uL F 2000.0-8800.0 Leukocytes [#/volume] in Blood by Automated count 2023-06-28 15:13:34 6 x 10^3 cells/uL F 4.0-11.0 Lymphocytes [#/volume] in Blood by Automated count 2023-06-28 15:13:34 805 Cell/uL F 620.0-3660.0 Monocytes/100 leukocytes in Blood by Automated count 2023-06-28 15:13:34 6.9 % F Neutrophils/100 leukocytes in Blood by Automated count 2023-06-28 15:13:34 76.8 % F Eosinophils/100 leukocytes in Blood by Automated count 2023-06-28 15:13:34 2 % F Lymphocytes/100 leukocytes in Blood by Automated count 2023-06-28 15:13:34 13.4 % F Monocytes [#/volume] in Blood by Automated count 2023-06-28 15:13:34 415 Cell/uL F 0.0-1100.0 Basophils [#/volume] in Blood by Automated count 2023-06-28 15:13:34 60 Cell/uL F 0.0-400.0 Eosinophils [#/volume] in Blood by Automated count 2023-06-28 15:13:34 120 Cell/uL F 0.0-700.0 Neutrophils [#/volume] in Blood by Automated count 2023-06-28 15:13:34 4616 Cell/uL F 2000.0-8800.0 Basophils/100 leukocytes in Blood by Automated count 2023-06-28 15:13:34 1 % F Lymphocytes [#/volume] in Blood by Automated count 2023-06-28 15:13:34 805 Cell/uL F 620.0-3660.0 Leukocytes [#/volume] in Blood by Automated count 2023-06-28 15:13:34 6 x 10^3 cells/uL F 4.0-11.0 Monocytes/100 leukocytes in Blood by Automated count 2023-06-28 15:13:34 6.9 % F Basophils/100 leukocytes in Blood by Automated count 2023-06-28 15:13:34 1 % F Neutrophils/100 leukocytes in Blood by Automated count 2023-06-28 15:13:34 76.8 % F Lymphocytes/100 leukocytes in Blood by Automated count 2023-06-28 15:13:34 13.4 % F Eosinophils/100 leukocytes in Blood by Automated count 2023-06-28 15:13:34 2 % F Monocytes [#/volume] in Blood by Automated count 2023-06-28 15:13:34 415 Cell/uL F 0.0-1100.0 Basophils [#/volume] in Blood by Automated count 2023-06-28 15:13:34 60 Cell/uL F 0.0-400.0 Eosinophils [#/volume] in Blood by Automated count 2023-06-28 15:13:34 120 Cell/uL F 0.0-700.0 Neutrophils [#/volume] in Blood by Automated count 2023-06-28 15:13:34 4616 Cell/uL F 2000.0-8800.0 Leukocytes [#/volume] in Blood by Automated count 2023-06-28 15:13:34 6 x 10^3 cells/uL F 4.0-11.0 Lymphocytes [#/volume] in Blood by Automated count 2023-06-28 15:13:34 805 Cell/uL F 620.0-3660.0 Eosinophils/100 leukocytes in Blood by Automated count 2023-05-22 19:50:44 0.8 % F Basophils/100 leukocytes in Blood by Automated count 2023-05-22 19:50:44 0.3 % F Neutrophils [#/volume] in Blood by Automated count 2023-05-22 19:50:44 5156 Cell/uL F 2000.0-8800.0 Lymphocytes [#/volume] in Blood by Automated count 2023-05-22 19:50:44 787 Cell/uL F 620.0-3660.0 Eosinophils/100 leukocytes in Blood by Automated count 2023-05-22 19:50:44 0.8 % F Lymphocytes [#/volume] in Blood by Automated count 2023-05-22 19:50:44 787 Cell/uL F 620.0-3660.0 Basophils/100 leukocytes in Blood [...] count 2023-05-22 19:50:44 5156 Cell/uL F 2000.0-8800.0 Lymphocytes [#/volume] in Blood by Automated count 2023-05-22 19:50:44 787 Cell/uL F 620.0-3660.0 Neutrophils/100 leukocytes in Blood by Automated count 2023-05-22 19:50:42 78 % F Monocytes/100 leukocytes in Blood by Automated count 2023-05-22 19:50:42 9 % F Lymphocytes/100 leukocytes in Blood by Automated count 2023-05-22 19:50:42 11.9 % F Monocytes [#/volume] in Blood by Automated count 2023-05-22 19:50:42 595 Cell/uL F 0.0-1100.0 Basophils [#/volume] in Blood by Automated count 2023-05-22 19:50:42 20 Cell/uL F 0.0-400.0 Eosinophils [#/volume] in Blood by Automated count 2023-05-22 19:50:42 53 Cell/uL F 0.0-700.0 Leukocytes [#/volume] in Blood by Automated count 2023-05-22 19:50:42 6.6 x 10^3 cells/uL F 4.0-11.0 Lymphocytes/100 leukocytes in Blood by Automated count 2023-05-22 19:50:42 11.9 % F Neutrophils/100 leukocytes in Blood by Automated count 2023-05-22 19:50:42 78 % F Monocytes [#/volume] in Blood by Automated count 2023-05-22 19:50:42 595 Cell/uL F 0.0-1100.0 Monocytes/100 leukocytes in Blood by Automated count 2023-05-22 19:50:42 9 % F Basophils [#/volume] in Blood by Automated count 2023-05-22 19:50:42 20 Cell/uL F 0.0-400.0 Eosinophils [#/volume] in Blood by Automated count 2023-05-22 19:50:42 53 Cell/uL F 0.0-700.0 Leukocytes [#/volume] in Blood by Automated count 2023-05-22 19:50:42 6.6 x 10^3 cells/uL F 4.0-11.0 Neutrophils/100 leukocytes in Blood by Automated count 2023-05-22 19:50:42 78 % F Monocytes/100 leukocytes in Blood by Automated count 2023-05-22 19:50:42 9 % F Lymphocytes/100 leukocytes in Blood by Automated count 2023-05-22 19:50:42 11.9 % F Monocytes [#/volume] in Blood by Automated count 2023-05-22 19:50:42 595 Cell/uL F 0.0-1100.0 Basophils [#/volume] in Blood by Automated count 2023-05-22 19:50:42 20 Cell/uL F 0.0-400.0 Eosinophils [#/volume] in Blood by Automated count 2023-05-22 19:50:42 53 Cell/uL F 0.0-700.0 Leukocytes [#/volume] in Blood by Automated count 2023-05-22 19:50:42 6.6 x 10^3 cells/uL F 4.0-11.0 Neutrophils/100 leukocytes in Blood by Automated count 2023-04-25 14:17:04 79.6 % F Basophils/100 leukocytes in Blood by Automated count 2023-04-25 14:17:04 0.3 % F Monocytes/100 leukocytes in Blood by Automated count 2023-04-25 14:17:04 6.4 % F Lymphocytes/100 leukocytes in Blood by Automated count 2023-04-25 14:17:04 12.5 % F Monocytes [#/volume] in Blood by Automated count 2023-04-25 14:17:04 397 Cell/uL F 0.0-1100.0 Eosinophils/100 leukocytes in Blood by Automated count 2023-04-25 14:17:04 1.2 % F Eosinophils [#/volume] in Blood by Automated count 2023-04-25 14:17:04 75 Cell/uL F 0.0-700.0 Neutrophils [#/volume] in Blood by Automated count 2023-04-25 14:17:04 4943 Cell/uL F 2000.0-8800.0 Lymphocytes [#/volume] in Blood by Automated count 2023-04-25 14:17:04 776 Cell/uL F 620.0-3660.0 Eosinophils/100 leukocytes in Blood by Automated count 2023-04-25 14:17:04 1.2 % F Monocytes/100 leukocytes in Blood by Automated count 2023-04-25 14:17:04 6.4 % F Neutrophils/100 leukocytes in Blood by Automated count 2023-04-25 14:17:04 79.6 % F Basophils/100 leukocytes in Blood by Automated count 2023-04-25 14:17:04 0.3 % F Monocytes [#/volume] in Blood by Automated count 2023-04-25 14:17:04 397 Cell/uL F 0.0-1100.0 Lymphocytes/100 leukocytes in Blood by Automated count 2023-04-25 14:17:04 12.5 % F Eosinophils [#/volume] in Blood by Automated count 2023-04-25 14:17:04 75 Cell/uL F 0.0-700.0 Neutrophils [#/volume] in Blood by Automated count 2023-04-25 14:17:04 4943 Cell/uL F 2000.0-8800.0 Lymphocytes [#/volume] in Blood by Automated count 2023-04-25 14:17:04 776 Cell/uL F 620.0-3660.0 Basophils [#/volume] in Blood by Automated count 2023-04-25 14:17:02 19 Cell/uL F 0.0-400.0 Leukocytes [#/volume] in Blood by Automated count 2023-04-25 14:17:02 6.2 x 10^3 cells/uL F 4.0-11.0 Basophils [#/volume] in Blood by Automated count 2023-04-25 14:17:02 19 Cell/uL F 0.0-400.0 Leukocytes [#/volume] in Blood by Automated count 2023-04-25 14:17:02 6.2 x 10^3 cells/uL F 4.0-11.0 Basophils/100 leukocytes in Blood by Automated count 2023-04-04 04:18:44 0.3 % F Lymphocytes/100 leukocytes in Blood by Automated count 2023-04-04 04:18:44 14.2 % F Eosinophils/100 leukocytes in Blood by Automated count 2023-04-04 04:18:44 1.4 % F Monocytes/100 leukocytes in Blood by Automated count 2023-04-04 04:18:44 6.8 % F Neutrophils/100 leukocytes in Blood by Automated count 2023-04-04 04:18:44 77.4 % F Monocytes [#/volume] in Blood by Automated count 2023-04-04 04:18:44 447 Cell/uL F 0.0-1100.0 Basophils [#/volume] in Blood by Automated count 2023-04-04 04:18:44 20 Cell/uL F 0.0-400.0 Eosinophils [#/volume] in Blood by Automated count 2023-04-04 04:18:44 92 Cell/uL F 0.0-700.0 Neutrophils [#/volume] in Blood by Automated count 2023-04-04 04:18:44 5093 Cell/uL F 2000.0-8800.0 Leukocytes [#/volume] in Blood by Automated count 2023-04-04 04:18:44 6.6 x 10^3 cells/uL F 4.0-11.0 Lymphocytes [#/volume] in Blood by Automated count 2023-04-04 04:18:44 934 Cell/uL F 620.0-3660.0 Monocytes [#/volume] in Blood by Automated count 2023-02-25 20:15:23 682 Cell/uL F 0.0-1100.0 Basophils [#/volume] in Blood by Automated count 2023-02-25 20:15:23 8 Cell/uL F 0.0-400.0 Eosinophils [#/volume] in Blood by Automated count 2023-02-25 20:15:23 42 Cell/uL F 0.0-700.0 Neutrophils [#/volume] in Blood by Automated count 2023-02-25 20:15:23 6664 Cell/uL F 2000.0-8800.0 Leukocytes [#/volume] in Blood by Automated count 2023-02-25 20:15:23 8.3 x 10^3 cells/uL F 4.0-11.0 Monocytes [#/volume] in Blood by Automated count 2023-02-25 20:15:23 682 Cell/uL F 0.0-1100.0 Basophils [#/volume] in Blood by Automated count 2023-02-25 20:15:23 8 Cell/uL F 0.0-400.0 Neutrophils [#/volume] in Blood by Automated count 2023-02-25 20:15:23 6664 Cell/uL F 2000.0-8800.0 Leukocytes [#/volume] in Blood by Automated count 2023-02-25 20:15:23 8.3 x 10^3 cells/uL F 4.0-11.0 Eosinophils [#/volume] in Blood by Automated count 2023-02-25 20:15:23 42 Cell/uL F 0.0-700.0 Monocytes [#/volume] in Blood by Automated count 2023-02-25 20:15:23 682 Cell/uL F 0.0-1100.0 Basophils [#/volume] in Blood by Automated count 2023-02-25 20:15:23 8 Cell/uL F 0.0-400.0 Eosinophils [#/volume] in Blood by Automated count 2023-02-25 20:15:23 42 Cell/uL F 0.0-700.0 Neutrophils [#/volume] in Blood by Automated count 2023-02-25 20:15:23 6664 Cell/uL F 2000.0-8800.0 Leukocytes [#/volume] in Blood by Automated count 2023-02-25 20:15:23 8.3 x 10^3 cells/uL F 4.0-11.0 Neutrophils/100 leukocytes in Blood by Automated count 2023-02-25 20:15:20 80.1 % F Eosinophils/100 leukocytes in Blood by Automated count 2023-02-25 20:15:20 0.5 % F Lymphocytes/100 leukocytes in Blood by Automated count 2023-02-25 20:15:20 11 % F Basophils/100 leukocytes in Blood by Automated count 2023-02-25 20:15:20 0.1 % F Monocytes/100 leukocytes in Blood by Automated count 2023-02-25 20:15:20 8.2 % F Lymphocytes [#/volume] in Blood by Automated count 2023-02-25 20:15:20 915 Cell/uL F 620.0-3660.0 Basophils/100 leukocytes in Blood by Automated count 2023-02-25 20:15:20 0.1 % F Eosinophils/100 leukocytes in Blood by Automated count 2023-02-25 20:15:20 0.5 % F Neutrophils/100 leukocytes in Blood by Automated count 2023-02-25 20:15:20 80.1 % F Monocytes/100 leukocytes in Blood by Automated count 2023-02-25 20:15:20 8.2 % F Lymphocytes/100 leukocytes in Blood by Automated count 2023-02-25 20:15:20 11 % F Lymphocytes [#/volume] in Blood by Automated count 2023-02-25 20:15:20 915 Cell/uL F 620.0-3660.0 Basophils/100 leukocytes in Blood by Automated count 2023-02-25 20:15:20 0.1 % F Neutrophils/100 leukocytes in Blood by Automated count 2023-02-25 20:15:20 80.1 % F Eosinophils/100 leukocytes in Blood by Automated count 2023-02-25 20:15:20 0.5 % F Monocytes/100 leukocytes in Blood by Automated count 2023-02-25 20:15:20 8.2 % F Lymphocytes/100 leukocytes in Blood by Automated count 2023-02-25 20:15:20 11 % F Lymphocytes [#/volume] in Blood by Automated count 2023-02-25 20:15:20 915 Cell/uL F 620.0-3660.0 Lymphocytes/100 leukocytes in Blood by Automated count 2023-01-22 04:32:40 12.8 % F Lymphocytes [#/volume] in Blood by Automated count 2023-01-22 04:32:40 858 Cell/uL F 620.0-3660.0 Lymphocytes/100 leukocytes in Blood by Automated count 2023-01-22 04:32:40 12.8 % F Lymphocytes [#/volume] in Blood by Automated count 2023-01-22 04:32:40 858 Cell/uL F 620.0-3660.0 Monocytes/100 leukocytes in Blood by Automated count 2023-01-22 04:32:37 7.9 % F Basophils/100 leukocytes in Blood by Automated count 2023-01-22 04:32:37 0.2 % F Eosinophils/100 leukocytes in Blood by Automated count 2023-01-22 04:32:37 1.1 % F Monocytes [#/volume] in Blood by Automated count 2023-01-22 04:32:37 529 Cell/uL F 0.0-1100.0 Neutrophils/100 leukocytes in Blood by Automated count 2023-01-22 04:32:37 77.9 % F Basophils [#/volume] in Blood by Automated count 2023-01-22 04:32:37 13 Cell/uL F 0.0-400.0 Eosinophils [#/volume] in Blood by Automated count 2023-01-22 04:32:37 74 Cell/uL F 0.0-700.0 Neutrophils [#/volume] in Blood by Automated count 2023-01-22 04:32:37 5219 Cell/uL F 2000.0-8800.0 Leukocytes [#/volume] in Blood by Automated count 2023-01-22 04:32:37 6.7 x 10^3 cells/uL F 4.0-11.0 Basophils/100 leukocytes in Blood by Automated count 2023-01-22 04:32:37 0.2 % F Monocytes/100 leukocytes in Blood by Automated count 2023-01-22 04:32:37 7.9 % F Eosinophils/100 leukocytes in Blood by Automated count 2023-01-22 04:32:37 1.1 % F Neutrophils/100 leukocytes in Blood by Automated count 2023-01-22 04:32:37 77.9 % F Monocytes [#/volume] in Blood by Automated count 2023-01-22 04:32:37 529 Cell/uL F 0.0-1100.0 Eosinophils [#/volume] in Blood by Automated count 2023-01-22 04:32:37 74 Cell/uL F 0.0-700.0 Basophils [#/volume] in Blood by Automated count 2023-01-22 04:32:37 13 Cell/uL F 0.0-400.0 Neutrophils [#/volume] in Blood by Automated count 2023-01-22 04:32:37 5219 Cell/uL F 2000.0-8800.0 Leukocytes [#/volume] in Blood by Automated count 2023-01-22 04:32:37 6.7 x 10^3 cells/uL F 4.0-11.0 Lymphocytes/100 leukocytes in Blood by Automated count 2022-12-27 20:08:41 11.1 % F Eosinophils/100 leukocytes in Blood by Automated count 2022-12-27 20:08:41 0.9 % F Monocytes/100 leukocytes in Blood by Automated count 2022-12-27 20:08:41 8.8 % F Monocytes [#/volume] in Blood by Automated count 2022-12-27 20:08:41 642 Cell/uL F 0.0-1100.0 Eosinophils [#/volume] in Blood by Automated count 2022-12-27 20:08:41 66 Cell/uL F 0.0-700.0 Neutrophils/100 leukocytes in Blood by Automated count 2022-12-27 20:08:41 78.9 % F Basophils/100 leukocytes in Blood by Automated count 2022-12-27 20:08:41 0.2 % F Basophils [#/volume] in Blood by Automated count 2022-12-27 20:08:41 15 Cell/uL F 0.0-400.0 Neutrophils [#/volume] in Blood by Automated count 2022-12-27 20:08:41 5752 Cell/uL F 2000.0-8800.0 Leukocytes [#/volume] in Blood by Automated count 2022-12-27 20:08:41 7.3 x 10^3 cells/uL F 4.0-11.0 Lymphocytes [#/volume] in Blood by Automated count 2022-12-27 20:08:41 809 Cell/uL F 620.0-3660.0 Neutrophils/100 leukocytes in Blood by Automated count 2022-12-27 20:08:41 78.9 % F Lymphocytes/100 leukocytes in Blood by Automated count 2022-12-27 20:08:41 11.1 % F Basophils/100 leukocytes in Blood by Automated count 2022-12-27 20:08:41 0.2 % F Eosinophils/100 leukocytes in Blood by Automated count 2022-12-27 20:08:41 0.9 % F Monocytes/100 leukocytes in Blood by Automated count 2022-12-27 20:08:41 8.8 % F Monocytes [#/volume] in Blood by Automated count 2022-12-27 20:08:41 642 Cell/uL F 0.0-1100.0 Basophils [#/volume] in Blood by Automated count 2022-12-27 20:08:41 15 Cell/uL F 0.0-400.0 Eosinophils [#/volume] in Blood by Automated count 2022-12-27 20:08:41 66 Cell/uL F 0.0-700.0 Neutrophils [#/volume] in Blood by Automated count 2022-12-27 20:08:41 5752 Cell/uL F 2000.0-8800.0 Leukocytes [#/volume] in Blood by Automated count 2022-12-27 20:08:41 7.3 x 10^3 cells/uL F 4.0-11.0 Lymphocytes [#/volume] in Blood by Automated count 2022-12-27 20:08:41 809 Cell/uL F 620.0-3660.0 Lymphocytes/100 leukocytes in Blood by Automated count 2022-11-23 23:44:35 14.2 % F Monocytes/100 leukocytes in Blood by Automated count 2022-11-23 23:44:35 7.1 % F Neutrophils/100 leukocytes in Blood by Automated count 2022-11-23 23:44:35 77.6 % F Basophils/100 leukocytes in Blood by Automated count 2022-11-23 23:44:35 0.6 % F Eosinophils/100 leukocytes in Blood by Automated count 2022-11-23 23:44:35 0.6 % F Basophils [#/volume] in Blood by Automated count 2022-11-23 23:44:35 35 Cell/uL F 0.0-400.0 Monocytes [#/volume] in Blood by Automated count 2022-11-23 23:44:35 415 Cell/uL F 0.0-1100.0 Eosinophils [#/volume] in Blood by Automated count 2022-11-23 23:44:35 35 Cell/uL F 0.0-700.0 Neutrophils [#/volume] in Blood by Automated count 2022-11-23 23:44:35 4532 Cell/uL F 2000.0-8800.0 Leukocytes [#/volume] in Blood by Automated count 2022-11-23 23:44:35 5.8 x 10^3 cells/uL F 4.0-11.0 Lymphocytes [#/volume] in Blood by Automated count 2022-11-23 23:44:35 829 Cell/uL F 620.0-3660.0 Lymphocytes/100 leukocytes in Blood by Automated count 2022-10-29 17:04:34 15.2 % F Monocytes [#/volume] in Blood by Automated count 2022-10-29 17:04:34 508 Cell/uL F 0.0-1100.0 Basophils [#/volume] in Blood by Automated count 2022-10-29 17:04:34 43 Cell/uL F 0.0-400.0 Eosinophils [#/volume] in Blood by Automated count 2022-10-29 17:04:34 62 Cell/uL F 0.0-700.0 Monocytes [#/volume] in Blood by Automated count 2022-10-29 17:04:34 508 Cell/uL F 0.0-1100.0 Eosinophils [#/volume] in Blood by Automated count 2022-10-29 17:04:34 62 Cell/uL F 0.0-700.0 Basophils [#/volume] in Blood by Automated count 2022-10-29 17:04:34 43 Cell/uL F 0.0-400.0 Lymphocytes/100 leukocytes in Blood by Automated count 2022-10-29 17:04:34 15.2 % F Lymphocytes/100 leukocytes in Blood by Automated count 2022-10-29 17:04:34 15.2 % F Monocytes [#/volume] in Blood by Automated count 2022-10-29 17:04:34 508 Cell/uL F 0.0-1100.0 Basophils [#/volume] in Blood by Automated count 2022-10-29 17:04:34 43 Cell/uL F 0.0-400.0 Eosinophils [#/volume] in Blood by Automated count 2022-10-29 17:04:34 62 Cell/uL F 0.0-700.0 Eosinophils/100 leukocytes in Blood by Automated count 2022-10-29 17:04:33 1 % F Monocytes/100 leukocytes in Blood by Automated count 2022-10-29 17:04:33 8.2 % F Neutrophils/100 leukocytes in Blood by Automated count 2022-10-29 17:04:33 74.9 % F Basophils/100 leukocytes in Blood by Automated count 2022-10-29 17:04:33 0.7 % F Neutrophils [#/volume] in Blood by Automated count 2022-10-29 17:04:33 4636 Cell/uL F 2000.0-8800.0 Leukocytes [#/volume] in Blood [...] count 2022-10-29 17:04:33 4636 Cell/uL F 2000.0-8800.0 Eosinophils/100 leukocytes in Blood by Automated count 2022-10-29 17:04:33 1 % F Basophils/100 leukocytes in Blood by Automated count 2022-10-29 17:04:33 0.7 % F Leukocytes [#/volume] in Blood by Automated count 2022-10-29 17:04:33 6.2 x 10^3 cells/uL F 4.0-11.0 Lymphocytes [#/volume] in Blood by Automated count 2022-10-29 17:04:33 941 Cell/uL F 620.0-3660.0 Eosinophils/100 leukocytes in Blood by Automated count 2022-10-29 17:04:33 1 % F Monocytes/100 leukocytes in Blood by Automated count 2022-10-29 17:04:33 8.2 % F Neutrophils/100 leukocytes in Blood by Automated count 2022-10-29 17:04:33 74.9 % F Basophils/100 leukocytes in Blood by Automated count 2022-10-29 17:04:33 0.7 % F Neutrophils [#/volume] in Blood by Automated count 2022-10-29 17:04:33 4636 Cell/uL F 2000.0-8800.0 Leukocytes [#/volume] in Blood by Automated count 2022-10-29 17:04:33 6.2 x 10^3 cells/uL F 4.0-11.0 Lymphocytes [#/volume] in Blood by Automated count 2022-10-29 17:04:33 941 Cell/uL F 620.0-3660.0 Lymphocytes/100 leukocytes in Blood by Automated count 2022-09-27 16:57:38 13.5 % F Lymphocytes [#/volume] in Blood by Automated count 2022-09-27 16:57:38 934 Cell/uL F 620.0-3660.0 Monocytes/100 leukocytes in Blood by Automated count 2022-09-27 16:57:36 6.8 % F Eosinophils/100 leukocytes in Blood by Automated count 2022-09-27 16:57:36 2 % F Basophils/100 leukocytes in Blood by Automated count 2022-09-27 16:57:36 0.5 % F Neutrophils/100 leukocytes in Blood by Automated count 2022-09-27 16:57:36 77 % F Monocytes [#/volume] in Blood by Automated count 2022-09-27 16:57:36 471 Cell/uL F 0.0-1100.0 Basophils [#/volume] in Blood by Automated count 2022-09-27 16:57:36 35 Cell/uL F 0.0-400.0 Eosinophils [#/volume] in Blood by Automated count 2022-09-27 16:57:36 138 Cell/uL F 0.0-700.0 Neutrophils [#/volume] in Blood by Automated count 2022-09-27 16:57:36 5328 Cell/uL F 2000.0-8800.0 Leukocytes [#/volume] in Blood by Automated count 2022-09-27 16:57:36 6.9 x 10^3 cells/uL F 4.0-11.0 Basophils/100 leukocytes in Blood by Automated count 2022-08-28 00:52:20 0.4 % F Eosinophils/100 leukocytes in Blood by Automated count 2022-08-28 00:52:20 1.2 % F Monocytes/100 leukocytes in Blood by Automated count 2022-08-28 00:52:20 7.1 % F Lymphocytes/100 leukocytes in Blood by Automated count 2022-08-28 00:52:20 11.2 % F Neutrophils/100 leukocytes in Blood by Automated count 2022-08-28 00:52:20 80 % F Monocytes [#/volume] in Blood by Automated count 2022-08-28 00:52:20 662 Cell/uL F 0.0-1100.0 Basophils [#/volume] in Blood by Automated count 2022-08-28 00:52:20 37 Cell/uL F 0.0-400.0 Eosinophils [#/volume] in Blood by Automated count 2022-08-28 00:52:20 112 Cell/uL F 0.0-700.0 Neutrophils [#/volume] in Blood by Automated count 2022-08-28 00:52:20 7464 Cell/uL F 2000.0-8800.0 Leukocytes [#/volume] in Blood by Automated count 2022-08-28 00:52:20 9.3 x 10^3 cells/uL F 4.0-11.0 Lymphocytes [#/volume] in Blood by Automated count 2022-08-28 00:52:20 1045 Cell/uL F 620.0-3660.0 Monocytes/100 leukocytes in Blood by Automated count 2022-08-28 00:52:20 7.1 % F Neutrophils/100 leukocytes in Blood by Automated count 2022-08-28 00:52:20 80 % F Basophils [#/volume] in Blood by Automated count 2022-08-28 00:52:20 37 Cell/uL F 0.0-400.0 Neutrophils [#/volume] in Blood by Automated count 2022-08-28 00:52:20 7464 Cell/uL F 2000.0-8800.0 Leukocytes [#/volume] in Blood by Automated count 2022-08-28 00:52:20 9.3 x 10^3 cells/uL F 4.0-11.0 Lymphocytes [#/volume] in Blood by Automated count 2022-08-28 00:52:20 1045 Cell/uL F 620.0-3660.0 Eosinophils/100 leukocytes in Blood by Automated count 2022-08-28 00:52:20 1.2 % F Basophils/100 leukocytes in Blood by Automated count 2022-08-28 00:52:20 0.4 % F Lymphocytes/100 leukocytes in Blood by Automated count 2022-08-28 00:52:20 11.2 % F Monocytes [#/volume] in Blood by Automated count 2022-08-28 00:52:20 662 Cell/uL F 0.0-1100.0 Eosinophils [#/volume] in Blood by Automated count 2022-08-28 00:52:20 112 Cell/uL F 0.0-700.0 Eosinophils/100 leukocytes in Blood by Automated count 2022-08-28 00:52:20 1.2 % F Basophils/100 leukocytes in Blood by Automated count 2022-08-28 00:52:20 0.4 % F Monocytes/100 leukocytes in Blood by Automated count 2022-08-28 00:52:20 7.1 % F Neutrophils/100 leukocytes in Blood by Automated count 2022-08-28 00:52:20 80 % F Lymphocytes/100 leukocytes in Blood by Automated count 2022-08-28 00:52:20 11.2 % F Monocytes [#/volume] in Blood by Automated count 2022-08-28 00:52:20 662 Cell/uL F 0.0-1100.0 Basophils [#/volume] in Blood by Automated count 2022-08-28 00:52:20 37 Cell/uL F 0.0-400.0 Eosinophils [#/volume] in Blood by Automated count 2022-08-28 00:52:20 112 Cell/uL F 0.0-700.0 Neutrophils [#/volume] in Blood by Automated count 2022-08-28 00:52:20 7464 Cell/uL F 2000.0-8800.0 Leukocytes [#/volume] in Blood by Automated count 2022-08-28 00:52:20 9.3 x 10^3 cells/uL F 4.0-11.0 Lymphocytes [#/volume] in Blood by Automated count 2022-08-28 00:52:20 1045 Cell/uL F 620.0-3660.0 Lymphocytes/100 leukocytes in Blood by Automated count 2022-07-25 00:45:21 12.4 % F Neutrophils/100 leukocytes in Blood by Automated count 2022-07-25 00:45:21 78.3 % F Eosinophils/100 leukocytes in Blood by Automated count 2022-07-25 00:45:21 1.1 % F Basophils/100 leukocytes in Blood by Automated count 2022-07-25 00:45:21 0.4 % F Monocytes/100 leukocytes in Blood by Automated count 2022-07-25 00:45:21 8 % F Monocytes [#/volume] in Blood by Automated count 2022-07-25 00:45:21 621.6 Cell/uL F 0.0-1100.0 Basophils [#/volume] in Blood by Automated count 2022-07-25 00:45:21 31.08 Cell/uL F 0.0-400.0 Eosinophils [#/volume] in Blood by Automated count 2022-07-25 00:45:21 85.47 Cell/uL F 0.0-700.0 Neutrophils [#/volume] in Blood by Automated count 2022-07-25 00:45:21 6083.91 Cell/uL F 2000.0-8800.0 Leukocytes [#/volume] in Blood by Automated count 2022-07-25 00:45:21 7.8 x 10^3 cells/uL F 4.0-11.0 Lymphocytes [#/volume] in Blood by Automated count 2022-07-25 00:45:21 963.48 Cell/uL F 620.0-3660.0 Lymphocytes/100 leukocytes in Blood by Automated count 2022-06-22 20:46:12 12.7 % F Eosinophils/100 leukocytes in Blood by Automated count 2022-06-22 20:46:12 1.7 % F Basophils/100 leukocytes in Blood by Automated count 2022-06-22 20:46:12 0.5 % F Neutrophils/100 leukocytes in Blood by Automated count 2022-06-22 20:46:12 77.5 % F Monocytes/100 leukocytes in Blood by Automated count 2022-06-22 20:46:12 7.6 % F Monocytes [#/volume] in Blood by Automated count 2022-06-22 20:46:12 487.92 Cell/uL F 0.0-1100.0 Basophils [#/volume] in Blood by Automated count 2022-06-22 20:46:12 32.1 Cell/uL F 0.0-400.0 Eosinophils [#/volume] in Blood by Automated count 2022-06-22 20:46:12 109.14 Cell/uL F 0.0-700.0 Lymphocytes [#/volume] in Blood by Automated count 2022-06-22 20:46:12 815.34 Cell/uL F 1100.0-4800.0 Neutrophils [#/volume] in Blood by Automated count 2022-06-22 20:46:12 4975.5 Cell/uL F 2000.0-8800.0 Leukocytes [#/volume] in Blood by Automated count 2022-06-22 20:46:12 6.4 x 10^3 cells/uL F 4.5-11.0 Neutrophils/100 leukocytes in Blood by Automated count 2022-06-22 20:46:12 77.5 % F Basophils/100 leukocytes in Blood by Automated count 2022-06-22 20:46:12 0.5 % F Eosinophils/100 leukocytes in Blood by Automated count 2022-06-22 20:46:12 1.7 % F Lymphocytes/100 leukocytes in Blood by Automated count 2022-06-22 20:46:12 12.7 % F Monocytes/100 leukocytes in Blood by Automated count 2022-06-22 20:46:12 7.6 % F Monocytes [#/volume] in Blood by Automated count 2022-06-22 20:46:12 487.92 Cell/uL F 0.0-1100.0 Basophils [#/volume] in Blood by Automated count 2022-06-22 20:46:12 32.1 Cell/uL F 0.0-400.0 Eosinophils [#/volume] in Blood by Automated count 2022-06-22 20:46:12 109.14 Cell/uL F 0.0-700.0 Lymphocytes [#/volume] in Blood by Automated count 2022-06-22 20:46:12 815.34 Cell/uL F 1100.0-4800.0 Neutrophils [#/volume] in Blood by Automated count 2022-06-22 20:46:12 4975.5 Cell/uL F 2000.0-8800.0 Leukocytes [#/volume] in Blood by Automated count 2022-06-22 20:46:12 6.4 x 10^3 cells/uL F 4.5-11.0 Basophils/100 leukocytes in Blood by Automated count 2022-05-25 21:36:18 0.1 % F Eosinophils/100 leukocytes in Blood by Automated count 2022-05-25 21:36:18 0.5 % F Neutrophils/100 leukocytes in Blood by Automated count 2022-05-25 21:36:18 78.8 % F Monocytes/100 leukocytes in Blood by Automated count 2022-05-25 21:36:18 8.5 % F Lymphocytes/100 leukocytes in Blood by Automated count 2022-05-25 21:36:18 12.1 % F Monocytes [#/volume] in Blood by Automated count 2022-05-25 21:36:18 671.5 Cell/uL F 0.0-1100.0 Basophils [#/volume] in Blood by Automated count 2022-05-25 21:36:18 7.9 Cell/uL F 0.0-400.0 Eosinophils [#/volume] in Blood by Automated count 2022-05-25 21:36:18 39.5 Cell/uL F 0.0-700.0 Lymphocytes [#/volume] in Blood by Automated count 2022-05-25 21:36:18 955.9 Cell/uL F 1100.0-4800.0 Neutrophils [#/volume] in Blood by Automated count 2022-05-25 21:36:18 6225.2 Cell/uL F 2000.0-8800.0 Leukocytes [#/volume] in Blood by Automated count 2022-05-25 21:36:18 7.9 x 10^3 cells/uL F 4.5-11.0 Lymphocytes [#/volume] in Blood by Automated count 2022-05-25 21:36:18 955.9 Cell/uL F 1100.0-4800.0 Neutrophils [#/volume] in Blood by Automated count 2022-05-25 21:36:18 6225.2 Cell/uL F 2000.0-8800.0 Leukocytes [#/volume] in Blood by Automated count 2022-05-25 21:36:18 7.9 x 10^3 cells/uL F 4.5-11.0 Basophils/100 leukocytes in Blood by Automated count [...] count 2022-05-25 21:36:18 39.5 Cell/uL F 0.0-700.0 Basophils/100 leukocytes in Blood by Automated count 2022-05-25 21:36:18 0.1 % F Monocytes/100 leukocytes in Blood by Automated count 2022-05-25 21:36:18 8.5 % F Eosinophils/100 leukocytes in Blood by Automated count 2022-05-25 21:36:18 0.5 % F Lymphocytes/100 leukocytes in Blood by Automated count 2022-05-25 21:36:18 12.1 % F Neutrophils/100 leukocytes in Blood by Automated count 2022-05-25 21:36:18 78.8 % F Eosinophils [#/volume] in Blood by [...] count 2022-05-25 21:36:18 6225.2 Cell/uL F 2000.0-8800.0 Leukocytes [#/volume] in Blood by Automated count 2022-05-25 21:36:18 7.9 x 10^3 cells/uL F 4.5-11.0 Monocytes/100 leukocytes in Blood by Automated count 2022-05-25 21:36:18 8.5 % F Neutrophils/100 leukocytes in Blood by Automated count 2022-05-25 21:36:18 78.8 % F Basophils/100 leukocytes in Blood by Automated count 2022-05-25 21:36:18 0.1 % F Lymphocytes/100 leukocytes in Blood by Automated count 2022-05-25 21:36:18 12.1 % F Eosinophils/100 leukocytes in Blood by Automated count 2022-05-25 21:36:18 0.5 % F Monocytes [#/volume] in Blood by Automated count 2022-05-25 21:36:18 671.5 Cell/uL F 0.0-1100.0 Basophils [#/volume] in Blood by Automated count 2022-05-25 21:36:18 7.9 Cell/uL F 0.0-400.0 Eosinophils [#/volume] in Blood by Automated count 2022-05-25 21:36:18 39.5 Cell/uL F 0.0-700.0 Lymphocytes [#/volume] in Blood by Automated count 2022-05-25 21:36:18 955.9 Cell/uL F 1100.0-4800.0 Neutrophils [#/volume] in Blood by Automated count 2022-05-25 21:36:18 6225.2 Cell/uL F 2000.0-8800.0 Leukocytes [#/volume] in Blood by Automated count 2022-05-25 21:36:18 7.9 x 10^3 cells/uL F 4.5-11.0 Neutrophils/100 leukocytes in Blood by Automated count 2022-04-24 20:44:19 77.5 % F Lymphocytes/100 leukocytes in Blood by Automated count 2022-04-24 20:44:19 12.7 % F Eosinophils/100 leukocytes in Blood by Automated count 2022-04-24 20:44:19 1.3 % F Basophils/100 leukocytes in Blood by Automated count 2022-04-24 20:44:19 0.7 % F Monocytes/100 leukocytes in Blood by Automated count 2022-04-24 20:44:19 7.8 % F Monocytes [#/volume] in Blood by Automated count 2022-04-24 20:44:19 468.78 Cell/uL F 0.0-1100.0 Eosinophils [#/volume] in Blood by Automated count 2022-04-24 20:44:19 78.13 Cell/uL F 0.0-700.0 Basophils [#/volume] in Blood by Automated count 2022-04-24 20:44:19 42.07 Cell/uL F 0.0-400.0 Lymphocytes [#/volume] in Blood by Automated count 2022-04-24 20:44:19 763.27 Cell/uL F 1100.0-4800.0 Neutrophils [#/volume] in Blood by Automated count 2022-04-24 20:44:19 4657.75 Cell/uL F 2000.0-8800.0 Leukocytes [#/volume] in Blood by Automated count 2022-04-24 20:44:19 6 x 10^3 cells/uL F 4.5-11.0 Neutrophils/100 leukocytes in Blood by Automated count 2022-04-24 20:44:19 77.5 % F Eosinophils/100 leukocytes in Blood by Automated count 2022-04-24 20:44:19 1.3 % F Lymphocytes/100 leukocytes in Blood by Automated count 2022-04-24 20:44:19 12.7 % F Basophils/100 leukocytes in Blood by Automated count 2022-04-24 20:44:19 0.7 % F Monocytes/100 leukocytes in Blood by Automated count 2022-04-24 20:44:19 7.8 % F Monocytes [#/volume] in Blood by Automated count 2022-04-24 20:44:19 468.78 Cell/uL F 0.0-1100.0 Basophils [#/volume] in Blood by Automated count 2022-04-24 20:44:19 42.07 Cell/uL F 0.0-400.0 Eosinophils [#/volume] in Blood by Automated count 2022-04-24 20:44:19 78.13 Cell/uL F 0.0-700.0 Lymphocytes [#/volume] in Blood by Automated count 2022-04-24 20:44:19 763.27 Cell/uL F 1100.0-4800.0 Neutrophils [#/volume] in Blood by Automated count 2022-04-24 20:44:19 4657.75 Cell/uL F 2000.0-8800.0 Leukocytes [#/volume] in Blood by Automated count 2022-04-24 20:44:19 6 x 10^3 cells/uL F 4.5-11.0 Basophils [#/volume] in Blood by Automated count 2022-04-02 14:41:01 42.48 Cell/uL F 0.0-400.0 Monocytes/100 leukocytes in Blood by Automated count 2022-04-02 14:41:00 8.2 % F Basophils/100 leukocytes in Blood by Automated count 2022-04-02 14:41:00 0.6 % F Lymphocytes/100 leukocytes in Blood by Automated count 2022-04-02 14:41:00 8.8 % F Eosinophils/100 leukocytes in Blood by Automated count 2022-04-02 14:41:00 1 % F Neutrophils/100 leukocytes in Blood by Automated count 2022-04-02 14:41:00 81.5 % F Monocytes [#/volume] in Blood by Automated count 2022-04-02 14:41:00 580.56 Cell/uL F 0.0-1100.0 Eosinophils [#/volume] in Blood by Automated count 2022-04-02 14:41:00 70.8 Cell/uL F 0.0-700.0 Lymphocytes [#/volume] in Blood by Automated count 2022-04-02 14:41:00 623.04 Cell/uL F 1100.0-4800.0 Neutrophils [#/volume] in Blood by Automated count 2022-04-02 14:41:00 5770.2 Cell/uL F 2000.0-8800.0 Leukocytes [#/volume] in Blood by Automated count 2022-04-02 14:41:00 7.1 x 10^3 cells/uL F 4.5-11.0 Neutrophils [#/volume] in Blood by Automated count 2022-02-21 04:21:43 6593.4 Cell/uL F 2000.0-8800.0 Neutrophils [#/volume] in Blood by Automated count 2022-02-21 04:21:43 6593.4 Cell/uL F 2000.0-8800.0 Neutrophils [#/volume] in Blood by Automated count 2022-02-21 04:21:43 6593.4 Cell/uL F 2000.0-8800.0 Monocytes/100 leukocytes in Blood by Automated count 2022-02-21 04:21:41 7.3 % F Basophils/100 leukocytes in Blood by Automated count 2022-02-21 04:21:41 0.5 % F Neutrophils/100 leukocytes in Blood by Automated count 2022-02-21 04:21:41 81.4 % F Lymphocytes/100 leukocytes in Blood by Automated count 2022-02-21 04:21:41 9.7 % F Eosinophils/100 leukocytes in Blood by Automated count 2022-02-21 04:21:41 1.1 % F Monocytes [#/volume] in Blood by Automated count 2022-02-21 04:21:41 591.3 Cell/uL F 0.0-1100.0 Basophils [#/volume] in Blood by Automated count 2022-02-21 04:21:41 40.5 Cell/uL F 0.0-400.0 Eosinophils [#/volume] in Blood by Automated count 2022-02-21 04:21:41 89.1 Cell/uL F 0.0-700.0 Lymphocytes [#/volume] in Blood by Automated count 2022-02-21 04:21:41 785.7 Cell/uL F 1100.0-4800.0 Leukocytes [#/volume] in Blood by Automated count 2022-02-21 04:21:41 8.1 x 10^3 cells/uL F 4.5-11.0 Monocytes/100 leukocytes in Blood by Automated count 2022-02-21 04:21:41 7.3 % F Monocytes [#/volume] in Blood by Automated count 2022-02-21 04:21:41 591.3 Cell/uL F 0.0-1100.0 Basophils [#/volume] in Blood by Automated count 2022-02-21 04:21:41 40.5 Cell/uL F 0.0-400.0 Lymphocytes [#/volume] in Blood by Automated count 2022-02-21 04:21:41 785.7 Cell/uL F 1100.0-4800.0 Leukocytes [#/volume] in Blood by Automated count 2022-02-21 04:21:41 8.1 x 10^3 cells/uL F 4.5-11.0 Basophils/100 leukocytes in Blood by Automated count 2022-02-21 04:21:41 0.5 % F Lymphocytes/100 leukocytes in Blood by Automated count 2022-02-21 04:21:41 9.7 % F Eosinophils/100 leukocytes in Blood by Automated count 2022-02-21 04:21:41 1.1 % F Neutrophils/100 leukocytes in Blood by Automated count 2022-02-21 04:21:41 81.4 % F Eosinophils [#/volume] in Blood by Automated count 2022-02-21 04:21:41 89.1 Cell/uL F 0.0-700.0 Basophils/100 leukocytes in Blood by Automated count 2022-02-21 04:21:41 0.5 % F Monocytes/100 leukocytes in Blood by Automated count 2022-02-21 04:21:41 7.3 % F Neutrophils/100 leukocytes in Blood by Automated count 2022-02-21 04:21:41 81.4 % F Lymphocytes/100 leukocytes in Blood by Automated count 2022-02-21 04:21:41 9.7 % F Eosinophils/100 leukocytes in Blood by Automated count 2022-02-21 04:21:41 1.1 % F Monocytes [#/volume] in Blood by Automated count 2022-02-21 04:21:41 591.3 Cell/uL F 0.0-1100.0 Basophils [#/volume] in Blood by Automated count 2022-02-21 04:21:41 40.5 Cell/uL F 0.0-400.0 Eosinophils [#/volume] in Blood by Automated count 2022-02-21 04:21:41 89.1 Cell/uL F 0.0-700.0 Lymphocytes [#/volume] in Blood by Automated count 2022-02-21 04:21:41 785.7 Cell/uL F 1100.0-4800.0 Leukocytes [#/volume] in Blood by Automated count 2022-02-21 04:21:41 8.1 x 10^3 cells/uL F 4.5-11.0 Neutrophils/100 leukocytes in Blood by Automated count Basophils/100 leukocytes in Blood by Automated count Basophils [#/volume] in Blood by Automated count Lymphocytes [#/volume] in Blood by Automated count Neutrophils [#/volume] in Blood by Automated count Leukocytes [#/volume] in Blood by Automated count Monocytes [#/volume] in Blood by Automated count Lymphocytes/100 leukocytes in Blood by Automated count Eosinophils/100 leukocytes in Blood by Automated count Eosinophils [#/volume] in Blood by Automated count Monocytes/100 leukocytes in Blood by Automated count Lymphocytes/100 leukocytes in Blood by Automated count Neutrophils/100 leukocytes in Blood by Automated count Eosinophils [#/volume] in Blood by Automated count Basophils [#/volume] in Blood by Automated count Eosinophils/100 leukocytes in Blood by Automated count Monocytes/100 leukocytes in Blood by Automated count Neutrophils [#/volume] in Blood by Automated count Leukocytes [#/volume] in Blood by Automated count Monocytes [#/volume] in Blood by Automated count Lymphocytes [#/volume] in Blood by Automated count Basophils/100 leukocytes in Blood by Automated count Neutrophils [#/volume] in Blood by Automated count Neutrophils/100 leukocytes in Blood by Automated count Lymphocytes/100 leukocytes in Blood by Automated count Basophils [#/volume] in Blood by Automated count Eosinophils/100 leukocytes in Blood by Automated count Basophils/100 leukocytes in Blood by Automated count Monocytes [#/volume] in Blood by Automated count Lymphocytes [#/volume] in Blood by Automated count Leukocytes [#/volume] in Blood by Automated count Eosinophils [#/volume] in Blood by Automated count Monocytes/100 leukocytes in Blood by Automated count Basophils/100 leukocytes in Blood by Automated count Neutrophils/100 leukocytes in Blood by Automated count Lymphocytes/100 leukocytes in Blood by Automated count Monocytes/100 leukocytes in Blood by Automated count Eosinophils/100 leukocytes in Blood by Automated count Leukocytes [#/volume] in Blood by Automated count Neutrophils [#/volume] in Blood by Automated count Lymphocytes [#/volume] in Blood by Automated count Monocytes [#/volume] in Blood by Automated count Basophils [#/volume] in Blood by Automated count Eosinophils [#/volume] in Blood by Automated count Leukocytes [#/volume] in Blood by Automated count Lymphocytes [#/volume] in Blood by Automated count Eosinophils [#/volume] in Blood by Automated count Monocytes [#/volume] in Blood by Automated count Basophils/100 leukocytes in Blood by Automated count Lymphocytes/100 leukocytes in Blood by Automated count Neutrophils/100 leukocytes in Blood by Automated count Eosinophils/100 leukocytes in Blood by Automated count Neutrophils [#/volume] in Blood by Automated count Basophils [#/volume] in Blood by Automated count Monocytes/100 leukocytes in Blood by Automated count MineralBone Disorder Description Draw Date Result/Unit Status Ref Range Result Comments CA CORRECTED 2024-10-29 08:03:42 8.7 mg/dL F CA*PO4 CORRCTD 2024-10-29 08:02:11 43.5 Calc F 21.0-53.0 CA/PHOS PRODUCT 2024-10-29 08:02:11 39.5 Calc F 21.0-53.0 Calcium [Mass/volume] in Serum or Plasma 2024-10-29 07:32:19 7.9 mg/dL F 8.7-10.4 Alkaline phosphatase [Enzymatic activity/volume] in Serum or Plasma 2024-10-29 06:32:21 120 U/L F 46.0-116.0 Phosphate [Mass/volume] in Serum or Plasma 2024-10-29 06:32:21 5 mg/dL F 2.4-5.1 Magnesium [Mass/volume] in Serum or Plasma 2024-10-29 06:32:21 1.3 mg/dL F 1.6-2.6 Parathyrin.intact [Mass/volume] in Serum or Plasma 2024-10-29 05:58:18 183 pg/mL F 18.0-80.0 Magnesium [Mass/volume] in Serum or Plasma 2024-10-10 04:59:59 1.3 mg/dL F 1.6-2.6 CA/PHOS PRODUCT 2024-10-08 17:25:28 F Recollect - Augie tity not sufficient,Unable to Calculate. CA*PO4 CORRCTD 2024-10-08 17:25:28 F Recollect - Augie tity not sufficient,Unable to Calculate. Alkaline phosphatase [Enzymatic activity/volume] in Serum or Plasma 2024-10-08 17:24:44 F Recollect - Augie tity not sufficient Calcium [Mass/volume] in Serum or Plasma 2024-10-08 17:24:44 F Recollect - Augie tity not sufficient Phosphate [Mass/volume] in Serum or Plasma 2024-10-08 17:24:44 F Recollect - Augie tity not sufficient Magnesium [Mass/volume] in Serum or Plasma 2024-10-08 17:24:44 F Recollect - Augie tity not sufficient Parathyrin.intact [Mass/volume] in Serum or Plasma 2024-10-08 14:17:11 216 pg/mL F 18.0-80.0 CA CORRECTED 2024-08-28 07:38:36 8.1 mg/dL F CA CORRECTED 2024-08-28 07:38:36 8.1 mg/dL F CA CORRECTED 2024-08-28 07:38:36 8.1 mg/dL F CA CORRECTED 2024-08-28 07:38:36 8.1 mg/dL F CA/PHOS PRODUCT 2024-08-28 07:36:00 63 Calc F 21.0-53.0 CA*PO4 CORRCTD 2024-08-28 07:36:00 68.4 Calc F 21.0-53.0 CA/PHOS PRODUCT 2024-08-28 07:36:00 63 Calc F 21.0-53.0 CA*PO4 CORRCTD 2024-08-28 07:36:00 68.4 Calc F 21.0-53.0 CA/PHOS PRODUCT 2024-08-28 07:36:00 63 Calc F 21.0-53.0 CA*PO4 CORRCTD 2024-08-28 07:36:00 68.4 Calc F 21.0-53.0 CA*PO4 CORRCTD 2024-08-28 07:36:00 68.4 Calc F 21.0-53.0 CA/PHOS PRODUCT 2024-08-28 07:36:00 63 Calc F 21.0-53.0 Calcium [Mass/volume] in Serum or Plasma 2024-08-28 07:11:08 7.5 mg/dL F 8.7-10.4 Calcium [Mass/volume] in Serum or Plasma 2024-08-28 07:11:08 7.5 mg/dL F 8.7-10.4 Calcium [Mass/volume] in Serum or Plasma 2024-08-28 07:11:08 7.5 mg/dL F 8.7-10.4 Calcium [Mass/volume] in Serum or Plasma 2024-08-28 07:11:08 7.5 mg/dL F 8.7-10.4 Magnesium [Mass/volume] in Serum or Plasma 2024-08-28 06:45:07 1.6 mg/dL F 1.6-2.6 Phosphate [Mass/volume] in Serum or Plasma 2024-08-28 06:45:07 8.4 mg/dL F 2.4-5.1 Alkaline phosphatase [Enzymatic activity/volume] in Serum or Plasma 2024-08-28 06:45:07 96 U/L F 46.0-116.0 Alkaline phosphatase [Enzymatic activity/volume] in Serum or Plasma 2024-08-28 06:45:07 96 U/L F 46.0-116.0 Phosphate [Mass/volume] in Serum or Plasma 2024-08-28 06:45:07 8.4 mg/dL F 2.4-5.1 Magnesium [Mass/volume] in Serum or Plasma 2024-08-28 06:45:07 1.6 mg/dL F 1.6-2.6 Phosphate [Mass/volume] in Serum or Plasma 2024-08-28 06:45:07 8.4 mg/dL F 2.4-5.1 Alkaline phosphatase [Enzymatic activity/volume] in Serum or Plasma 2024-08-28 06:45:07 96 U/L F 46.0-116.0 Magnesium [Mass/volume] in Serum or Plasma 2024-08-28 06:45:07 1.6 mg/dL F 1.6-2.6 Magnesium [Mass/volume] in Serum or Plasma 2024-08-28 06:45:07 1.6 mg/dL F 1.6-2.6 Phosphate [Mass/volume] in Serum or Plasma 2024-08-28 06:45:07 8.4 mg/dL F 2.4-5.1 Alkaline phosphatase [Enzymatic activity/volume] in Serum or Plasma 2024-08-28 06:45:07 96 U/L F 46.0-116.0 25-Hydroxyvitamin D3+25-Hydroxyvitamin D2 [Mass/volume] in Serum or Plasma 2024-08-26 05:29:43 F Recollect - Hemolyzed specimen,Recollect - Hemolyzed specimen,Recollect - Hemolyzed specimen 25-Hydroxyvitamin D3+25-Hydroxyvitamin D2 [Mass/volume] in Serum or Plasma 2024-08-26 05:29:43 F Recollect - Hemolyzed specimen 25-Hydroxyvitamin D3+25-Hydroxyvitamin D2 [Mass/volume] in Serum or Plasma 2024-08-26 05:29:43 F Recollect - Hemolyzed specimen 25-Hydroxyvitamin D3+25-Hydroxyvitamin D2 [Mass/volume] in Serum or Plasma 2024-08-26 05:29:43 F Recollect - Hemolyzed specimen CA CORRECTED 2024-08-04 06:41:24 9 mg/dL F CA CORRECTED 2024-08-04 06:41:24 9 mg/dL F CA/PHOS PRODUCT 2024-08-04 06:39:16 60.5 Calc F 21.0-53.0 CA*PO4 CORRCTD 2024-08-04 06:39:16 65.1 Calc F 21.0-53.0 CA/PHOS PRODUCT 2024-08-04 06:39:16 60.5 Calc F 21.0-53.0 CA*PO4 CORRCTD 2024-08-04 06:39:16 65.1 Calc F 21.0-53.0 Calcium [Mass/volume] in Serum or Plasma 2024-08-04 06:36:57 8.4 mg/dL F 8.7-10.4 Calcium [Mass/volume] in Serum or Plasma 2024-08-04 06:36:57 8.4 mg/dL F 8.7-10.4 Parathyrin.intact [Mass/volume] in Serum or Plasma 2024-08-03 18:44:23 231 pg/mL F 18.0-80.0 Parathyrin.intact [Mass/volume] in Serum or Plasma 2024-08-03 18:44:23 231 pg/mL F 18.0-80.0 Alkaline phosphatase [Enzymatic activity/volume] in Serum or Plasma 2024-08-03 14:33:21 51 U/L F 46.0-116.0 Phosphate [Mass/volume] in Serum or Plasma 2024-08-03 14:33:21 7.2 mg/dL F 2.4-5.1 Magnesium [Mass/volume] in Serum or Plasma 2024-08-03 14:33:21 1.7 mg/dL F 1.6-2.6 Alkaline phosphatase [Enzymatic activity/volume] in Serum or Plasma 2024-08-03 14:33:21 51 U/L F 46.0-116.0 Phosphate [Mass/volume] in Serum or Plasma 2024-08-03 14:33:21 7.2 mg/dL F 2.4-5.1 Magnesium [Mass/volume] in Serum or Plasma 2024-08-03 14:33:21 1.7 mg/dL F 1.6-2.6 CA CORRECTED 2024-06-25 19:13:45 9.1 mg/dL F CA CORRECTED 2024-06-25 19:13:45 9.1 mg/dL F CA CORRECTED 2024-06-25 19:13:45 9.1 mg/dL F CA CORRECTED 2024-06-25 19:13:45 9.1 mg/dL F CA/PHOS PRODUCT 2024-06-25 19:11:18 71.3 Calc F 21.0-53.0 CA*PO4 CORRCTD 2024-06-25 19:11:18 74.6 Calc F 21.0-53.0 CA*PO4 CORRCTD 2024-06-25 19:11:18 74.6 Calc F 21.0-53.0 CA/PHOS PRODUCT 2024-06-25 19:11:18 71.3 Calc F 21.0-53.0 CA/PHOS PRODUCT 2024-06-25 19:11:18 71.3 Calc F 21.0-53.0 CA*PO4 CORRCTD 2024-06-25 19:11:18 74.6 Calc F 21.0-53.0 CA*PO4 CORRCTD 2024-06-25 19:11:18 74.6 Calc F 21.0-53.0 CA/PHOS PRODUCT 2024-06-25 19:11:18 71.3 Calc F 21.0-53.0 Phosphate [Mass/volume] in Serum or Plasma 2024-06-25 18:58:29 8.2 mg/dL F 2.4-5.1 Calcium [Mass/volume] in Serum or Plasma 2024-06-25 18:58:29 8.7 mg/dL F 8.7-10.4 Phosphate [Mass/volume] in Serum or Plasma 2024-06-25 18:58:29 8.2 mg/dL F 2.4-5.1 Calcium [Mass/volume] in Serum or Plasma 2024-06-25 18:58:29 8.7 mg/dL F 8.7-10.4 Calcium [Mass/volume] in Serum or Plasma 2024-06-25 18:58:29 8.7 mg/dL F 8.7-10.4 Phosphate [Mass/volume] in Serum or Plasma 2024-06-25 18:58:29 8.2 mg/dL F 2.4-5.1 Calcium [Mass/volume] in Serum or Plasma 2024-06-25 18:58:29 8.7 mg/dL F 8.7-10.4 Phosphate [Mass/volume] in Serum or Plasma 2024-06-25 18:58:29 8.2 mg/dL F 2.4-5.1 Magnesium [Mass/volume] in Serum or Plasma 2024-06-25 12:41:16 1.3 mg/dL F 1.3-2.7 Alkaline phosphatase [Enzymatic activity/volume] in Serum or Plasma 2024-06-25 12:41:16 39 U/L F 46.0-116.0 Alkaline phosphatase [Enzymatic activity/volume] in Serum or Plasma 2024-06-25 12:41:16 39 U/L F 46.0-116.0 Magnesium [Mass/volume] in Serum or Plasma 2024-06-25 12:41:16 1.3 mg/dL F 1.3-2.7 Alkaline phosphatase [Enzymatic activity/volume] in Serum or Plasma 2024-06-25 12:41:16 39 U/L F 46.0-116.0 Magnesium [Mass/volume] in Serum or Plasma 2024-06-25 12:41:16 1.3 mg/dL F 1.3-2.7 Magnesium [Mass/volume] in Serum or Plasma 2024-06-25 12:41:16 1.3 mg/dL F 1.3-2.7 Alkaline phosphatase [Enzymatic activity/volume] in Serum or Plasma 2024-06-25 12:41:16 39 U/L F 46.0-116.0 Parathyrin.intact [Mass/volume] in Serum or Plasma 2024-06-23 22:07:58 F CANCELED - TEST CANCELED Parathyrin.intact [Mass/volume] in Serum or Plasma 2024-06-23 22:07:58 F CANCELED - TEST CANCELED Parathyrin.intact [Mass/volume] in Serum or Plasma 2024-06-23 22:07:58 F CANCELED - TEST CANCELED,CANCELED - TEST CANCELED Parathyrin.intact [Mass/volume] in Serum or Plasma 2024-06-23 22:07:58 F CANCELED - TEST CANCELED CA CORRECTED 2024-04-29 07:21:07 9.1 mg/dL F CA CORRECTED 2024-04-29 07:21:07 9.1 mg/dL F CA*PO4 CORRCTD 2024-04-29 07:18:37 68.9 Calc F 21.0-53.0 CA/PHOS PRODUCT 2024-04-29 07:18:37 64.6 Calc F 21.0-53.0 CA/PHOS PRODUCT 2024-04-29 07:18:37 64.6 Calc F 21.0-53.0 CA*PO4 CORRCTD 2024-04-29 07:18:37 68.9 Calc F 21.0-53.0 Phosphate [Mass/volume] in Serum or Plasma 2024-04-29 07:04:12 7.6 mg/dL F 2.4-5.1 Calcium [Mass/volume] in Serum or Plasma 2024-04-29 07:04:12 8.5 mg/dL F 8.7-10.4 Phosphate [Mass/volume] in Serum or Plasma 2024-04-29 07:04:12 7.6 mg/dL F 2.4-5.1 Calcium [Mass/volume] in Serum or Plasma 2024-04-29 07:04:12 8.5 mg/dL F 8.7-10.4 Parathyrin.intact [Mass/volume] in Serum or Plasma 2024-04-28 17:59:35 134 pg/mL F 18.0-80.0 Parathyrin.intact [Mass/volume] in Serum or Plasma 2024-04-28 17:59:35 134 pg/mL F 18.0-80.0 Magnesium [Mass/volume] in Serum or Plasma 2024-04-28 14:30:26 1 mg/dL F 1.3-2.7 Alkaline phosphatase [Enzymatic activity/volume] in Serum or Plasma 2024-04-28 14:30:26 43 U/L F 46.0-116.0 Magnesium [Mass/volume] in Serum or Plasma 2024-04-28 14:30:26 1 mg/dL F 1.3-2.7 Alkaline phosphatase [Enzymatic activity/volume] in Serum or Plasma 2024-04-28 14:30:26 43 U/L F 46.0-116.0 CA CORRECTED 2024-03-26 11:08:08 9.7 mg/dL F CA/PHOS PRODUCT 2024-03-26 11:07:08 63 Calc F 21.0-53.0 CA*PO4 CORRCTD 2024-03-26 11:07:08 65.1 Calc F 21.0-53.0 Phosphate [Mass/volume] in Serum or Plasma 2024-03-26 08:21:45 6.7 mg/dL F 2.4-5.1 Calcium [Mass/volume] in Serum or Plasma 2024-03-26 08:21:43 9.4 mg/dL F 8.7-10.4 Parathyrin.intact [Mass/volume] in Serum or Plasma 2024-03-26 05:21:24 133 pg/mL F 18.0-80.0 Magnesium [Mass/volume] in Serum or Plasma 2024-03-26 01:26:18 1.6 mg/dL F 1.3-2.7 Alkaline phosphatase [Enzymatic activity/volume] in Serum or Plasma 2024-03-26 01:26:18 58 U/L F 46.0-116.0 CA CORRECTED 2024-03-07 09:50:00 9 mg/dL F CA CORRECTED 2024-03-07 09:50:00 9 mg/dL F CA*PO4 CORRCTD 2024-03-07 09:48:25 58.4 Calc F 21.0-53.0 CA/PHOS PRODUCT 2024-03-07 09:48:25 55.3 Calc F 21.0-53.0 CA*PO4 CORRCTD 2024-03-07 09:48:25 58.4 Calc F 21.0-53.0 CA/PHOS PRODUCT 2024-03-07 09:48:25 55.3 Calc F 21.0-53.0 25-Hydroxyvitamin D3+25-Hydroxyvitamin D2 [Mass/volume] [...] Plasma 2024-03-06 23:33:23 77 U/L F 46.0-116.0 Parathyrin.intact [Mass/volume] in Serum or Plasma 2024-03-06 [...] CA CORRECTED 2024-01-01 08:53:15 7.7 mg/dL F CA*PO4 CORRCTD 2024-01-01 08:52:09 69.1 Calc F 21.0-53.0 CA/PHOS PRODUCT 2024-01-01 08:52:09 64.8 Calc F 21.0-53.0 CA/PHOS PRODUCT 2024-01-01 08:52:09 64.8 Calc F 21.0-53.0 CA*PO4 CORRCTD 2024-01-01 08:52:09 69.1 Calc F 21.0-53.0 Calcium [Mass/volume] in Serum or Plasma 2024-01-01 07:50:11 7.2 mg/dL F 8.7-10.4 Calcium [Mass/volume] in Serum or Plasma 2024-01-01 07:50:11 7.2 mg/dL F 8.7-10.4 Parathyrin.intact [Mass/volume] in Serum or Plasma 2024-01-01 01:53:03 F Recollect - Augie tity not sufficient Parathyrin.intact [Mass/volume] in Serum or Plasma 2024-01-01 01:53:03 F Recollect - Augie tity not sufficient Magnesium [Mass/volume] in Serum or Plasma 2023-12-31 [...] or Plasma 2023-11-20 07:42:05 38.6 ng/mL F 25-Hydroxyvitamin D3+25-Hydroxyvitamin D2 [Mass/volume] in Serum or Plasma 2023-11-20 07:42:05 38.6 ng/mL F 25-Hydroxyvitamin D3+25-Hydroxyvitamin D2 [Mass/volume] in Serum or Plasma 2023-11-20 07:42:05 38.6 ng/mL F CA CORRECTED 2023-11-20 05:30:06 8.5 mg/dL F CA CORRECTED 2023-11-20 05:30:06 8.5 mg/dL F CA CORRECTED 2023-11-20 05:30:06 8.5 mg/dL F CA*PO4 CORRCTD 2023-11-20 05:05:23 66.3 Calc F 21.0-53.0 CA/PHOS PRODUCT 2023-11-20 05:05:23 64 Calc F 21.0-53.0 CA/PHOS PRODUCT 2023-11-20 05:05:23 64 Calc F 21.0-53.0 CA*PO4 CORRCTD 2023-11-20 05:05:23 66.3 Calc F 21.0-53.0 CA*PO4 CORRCTD 2023-11-20 05:05:23 66.3 Calc F 21.0-53.0 CA/PHOS PRODUCT 2023-11-20 05:05:23 64 Calc F 21.0-53.0 Calcium [Mass/volume] in Serum or Plasma 2023-11-20 04:55:01 8.2 mg/dL F 8.7-10.4 Calcium [Mass/volume] in Serum or Plasma 2023-11-20 04:55:01 8.2 mg/dL F 8.7-10.4 Calcium [Mass/volume] in Serum or Plasma 2023-11-20 04:55:01 8.2 mg/dL F 8.7-10.4 Magnesium [Mass/volume] in Serum or Plasma 2023-11-20 00:49:13 1.3 mg/dL F 1.3-2.7 Alkaline phosphatase [Enzymatic activity/volume] in Serum or Plasma 2023-11-20 00:49:13 69 U/L F 46.0-116.0 Phosphate [Mass/volume] in Serum or Plasma 2023-11-20 00:49:13 7.8 mg/dL F 2.4-5.1 Magnesium [Mass/volume] in Serum or Plasma 2023-11-20 00:49:13 1.3 mg/dL F 1.3-2.7 Phosphate [Mass/volume] in Serum or Plasma 2023-11-20 00:49:13 7.8 mg/dL F 2.4-5.1 Alkaline phosphatase [Enzymatic activity/volume] in Serum or Plasma 2023-11-20 00:49:13 69 U/L F 46.0-116.0 Magnesium [Mass/volume] in Serum or Plasma 2023-11-20 00:49:13 1.3 mg/dL F 1.3-2.7 Phosphate [Mass/volume] in Serum or Plasma 2023-11-20 00:49:13 7.8 mg/dL F 2.4-5.1 Alkaline phosphatase [Enzymatic activity/volume] in Serum or Plasma 2023-11-20 00:49:13 69 U/L F 46.0-116.0 Parathyrin.intact [Mass/volume] in Serum or Plasma 2023-11-19 23:02:17 345 pg/mL F 18.0-80.0 Parathyrin.intact [Mass/volume] in Serum or Plasma 2023-11-19 23:02:17 345 pg/mL F 18.0-80.0 Parathyrin.intact [Mass/volume] in Serum or Plasma 2023-11-19 23:02:17 345 pg/mL F 18.0-80.0 CA CORRECTED 2023-10-24 05:48:37 7.9 mg/dL F CA CORRECTED 2023-10-24 05:48:37 7.9 mg/dL F CA*PO4 CORRCTD 2023-10-24 05:40:37 71.9 Calc F 21.0-53.0 CA/PHOS PRODUCT 2023-10-24 05:40:37 69.2 Calc F 21.0-53.0 CA*PO4 CORRCTD 2023-10-24 05:40:37 71.9 Calc F 21.0-53.0 CA/PHOS PRODUCT 2023-10-24 05:40:37 69.2 Calc F 21.0-53.0 Calcium [Mass/volume] in Serum or Plasma 2023-10-24 05:37:39 7.6 mg/dL F 8.7-10.4 Calcium [Mass/volume] in Serum or Plasma 2023-10-24 05:37:39 7.6 mg/dL F 8.7-10.4 Parathyrin.intact [Mass/volume] in Serum or Plasma 2023-10-24 01:51:28 353 pg/mL F 18.0-80.0 Parathyrin.intact [Mass/volume] in Serum or Plasma 2023-10-24 01:51:28 353 pg/mL F 18.0-80.0 Phosphate [Mass/volume] in Serum or Plasma 2023-10-23 [...] CA CORRECTED 2023-09-26 18:03:47 8.6 mg/dL F CA/PHOS PRODUCT 2023-09-26 07:18:00 45.7 Calc F [...] Plasma 2023-09-25 14:18:41 263 pg/mL F 18.0-80.0 Magnesium [Mass/volume] in Serum or Plasma 2023-09-25 13:43:37 1.4 mg/dL F 1.3-2.7 Phosphate [Mass/volume] in Serum or Plasma 2023-09-25 13:43:37 5.5 mg/dL F 2.4-5.1 Alkaline phosphatase [Enzymatic activity/volume] in Serum or Plasma 2023-09-25 13:43:37 56 U/L F 46.0-116.0 Magnesium [Mass/volume] in Serum or Plasma 2023-09-25 13:43:37 1.4 mg/dL F 1.3-2.7 Phosphate [Mass/volume] in Serum or Plasma 2023-09-25 13:43:37 5.5 mg/dL F 2.4-5.1 Alkaline phosphatase [Enzymatic activity/volume] in Serum or Plasma 2023-09-25 13:43:37 56 U/L F 46.0-116.0 CA CORRECTED 2023-08-27 07:14:45 7.9 mg/dL F CA CORRECTED 2023-08-27 07:14:45 7.9 mg/dL F CA CORRECTED 2023-08-27 07:14:45 7.9 mg/dL F CA CORRECTED 2023-08-27 07:14:45 7.9 mg/dL F CA*PO4 CORRCTD 2023-08-27 07:09:55 55.3 Calc F 21.0-53.0 CA/PHOS PRODUCT 2023-08-27 07:09:55 53.2 Calc F 21.0-53.0 CA*PO4 CORRCTD 2023-08-27 07:09:55 55.3 Calc F 21.0-53.0 CA/PHOS PRODUCT 2023-08-27 07:09:55 53.2 Calc F 21.0-53.0 CA*PO4 CORRCTD 2023-08-27 07:09:55 55.3 Calc F 21.0-53.0 CA/PHOS PRODUCT 2023-08-27 07:09:55 53.2 Calc F 21.0-53.0 CA*PO4 CORRCTD 2023-08-27 07:09:55 55.3 Calc F 21.0-53.0 CA/PHOS PRODUCT 2023-08-27 07:09:55 53.2 Calc F 21.0-53.0 Calcium [Mass/volume] in Serum or Plasma 2023-08-27 07:06:48 7.6 mg/dL F 8.7-10.4 Calcium [Mass/volume] in Serum or Plasma 2023-08-27 07:06:48 7.6 mg/dL F 8.7-10.4 Calcium [Mass/volume] in Serum or Plasma 2023-08-27 07:06:48 7.6 mg/dL F 8.7-10.4 Calcium [Mass/volume] in Serum or Plasma 2023-08-27 07:06:48 7.6 mg/dL F 8.7-10.4 Parathyrin.intact [Mass/volume] in Serum or Plasma 2023-08-26 20:27:17 333 pg/mL F 18.0-80.0 Parathyrin.intact [Mass/volume] in Serum or Plasma 2023-08-26 20:27:17 333 pg/mL F 18.0-80.0 Parathyrin.intact [Mass/volume] in Serum or Plasma 2023-08-26 20:27:17 333 pg/mL F 18.0-80.0 Parathyrin.intact [Mass/volume] in Serum or Plasma 2023-08-26 20:27:17 333 pg/mL F 18.0-80.0 25-Hydroxyvitamin D3+25-Hydroxyvitamin D2 [Mass/volume] in Serum or Plasma 2023-08-26 20:27:11 57.6 ng/mL F 25-Hydroxyvitamin D3+25-Hydroxyvitamin D2 [Mass/volume] in Serum or Plasma 2023-08-26 20:27:11 57.6 ng/mL F 25-Hydroxyvitamin D3+25-Hydroxyvitamin D2 [Mass/volume] in Serum or Plasma 2023-08-26 20:27:11 57.6 ng/mL F 25-Hydroxyvitamin D3+25-Hydroxyvitamin D2 [Mass/volume] in Serum or Plasma 2023-08-26 20:27:11 57.6 ng/mL F Magnesium [Mass/volume] in Serum or Plasma 2023-08-26 18:51:36 1.2 mg/dL F 1.3-2.7 Phosphate [Mass/volume] in Serum or Plasma 2023-08-26 18:51:36 7 mg/dL F 2.4-5.1 Alkaline phosphatase [Enzymatic activity/volume] in Serum or Plasma 2023-08-26 18:51:36 94 U/L F 46.0-116.0 Magnesium [Mass/volume] in Serum or Plasma 2023-08-26 18:51:36 1.2 mg/dL F 1.3-2.7 Phosphate [Mass/volume] in Serum or Plasma 2023-08-26 18:51:36 7 mg/dL F 2.4-5.1 Alkaline phosphatase [Enzymatic activity/volume] in Serum or Plasma 2023-08-26 18:51:36 94 U/L F 46.0-116.0 Magnesium [Mass/volume] in Serum or Plasma 2023-08-26 18:51:36 1.2 mg/dL F 1.3-2.7 Phosphate [Mass/volume] in Serum or Plasma 2023-08-26 18:51:36 7 mg/dL F 2.4-5.1 Alkaline phosphatase [Enzymatic activity/volume] in Serum or Plasma 2023-08-26 18:51:36 94 U/L F 46.0-116.0 Magnesium [Mass/volume] in Serum or Plasma 2023-08-26 18:51:36 1.2 mg/dL F 1.3-2.7 Phosphate [Mass/volume] in Serum or Plasma 2023-08-26 18:51:36 7 mg/dL F 2.4-5.1 Alkaline phosphatase [Enzymatic activity/volume] in Serum or Plasma 2023-08-26 18:51:36 94 U/L F 46.0-116.0 CA CORRECTED 2023-07-25 06:54:17 8.2 mg/dL F CA CORRECTED 2023-07-25 06:54:17 8.2 mg/dL F CA*PO4 CORRCTD 2023-07-25 06:48:06 74.6 Calc F 21.0-53.0 CA/PHOS PRODUCT 2023-07-25 06:48:06 71.9 Calc F 21.0-53.0 CA*PO4 CORRCTD 2023-07-25 06:48:06 74.6 Calc F 21.0-53.0 CA/PHOS PRODUCT 2023-07-25 06:48:06 71.9 Calc F 21.0-53.0 Calcium [Mass/volume] in Serum or Plasma 2023-07-25 06:41:05 7.9 mg/dL F 8.7-10.4 Calcium [Mass/volume] in Serum or Plasma 2023-07-25 06:41:05 7.9 mg/dL F 8.7-10.4 Parathyrin.intact [Mass/volume] in Serum or Plasma 2023-07-25 03:52:10 308 pg/mL F 18.0-80.0 Parathyrin.intact [Mass/volume] in Serum or Plasma 2023-07-25 03:52:10 308 pg/mL F 18.0-80.0 Magnesium [Mass/volume] in Serum or Plasma 2023-07-24 17:39:41 1 mg/dL F 1.3-2.7 Phosphate [Mass/volume] in Serum or Plasma 2023-07-24 17:39:41 9.1 mg/dL F 2.4-5.1 Alkaline phosphatase [Enzymatic activity/volume] in Serum or Plasma 2023-07-24 17:39:41 60 U/L F 46.0-116.0 Magnesium [Mass/volume] in Serum or Plasma 2023-07-24 17:39:41 1 mg/dL F 1.3-2.7 Phosphate [Mass/volume] in Serum or Plasma 2023-07-24 17:39:41 9.1 mg/dL F 2.4-5.1 Alkaline phosphatase [Enzymatic activity/volume] in Serum or Plasma 2023-07-24 17:39:41 60 U/L F 46.0-116.0 CA CORRECTED 2023-06-29 01:33:20 8.6 mg/dL F CA CORRECTED 2023-06-29 01:33:20 8.6 mg/dL F CA CORRECTED 2023-06-29 01:33:20 8.6 mg/dL F CA/PHOS PRODUCT 2023-06-29 01:31:07 48.6 Calc F 21.0-53.0 CA*PO4 CORRCTD 2023-06-29 01:31:07 51.6 Calc F 21.0-53.0 CA*PO4 CORRCTD 2023-06-29 01:31:07 51.6 Calc F 21.0-53.0 CA/PHOS PRODUCT 2023-06-29 01:31:07 48.6 Calc F 21.0-53.0 CA/PHOS PRODUCT 2023-06-29 01:31:07 48.6 Calc F 21.0-53.0 CA*PO4 CORRCTD 2023-06-29 01:31:07 51.6 Calc F 21.0-53.0 Calcium [Mass/volume] in Serum [...] Plasma 2023-06-28 15:38:38 1.2 mg/dL F 1.3-2.7 Magnesium [Mass/volume] in Serum or Plasma 2023-06-28 15:38:38 1.2 mg/dL F 1.3-2.7 Phosphate [Mass/volume] in Serum or Plasma 2023-06-28 15:38:38 6 mg/dL F 2.4-5.1 Alkaline phosphatase [Enzymatic activity/volume] in Serum or Plasma 2023-06-28 15:38:38 43 U/L F 46.0-116.0 CA CORRECTED 2023-05-24 08:05:09 9 mg/dL F CA CORRECTED 2023-05-24 08:05:09 9 mg/dL F CA CORRECTED 2023-05-24 08:05:09 9 mg/dL F CA/PHOS PRODUCT 2023-05-24 07:49:48 42.2 Calc F 21.0-53.0 CA*PO4 CORRCTD 2023-05-24 07:49:48 43.2 Calc F 21.0-53.0 CA*PO4 CORRCTD 2023-05-24 07:49:48 43.2 Calc F 21.0-53.0 CA/PHOS PRODUCT 2023-05-24 07:49:48 42.2 Calc F 21.0-53.0 CA*PO4 CORRCTD 2023-05-24 07:49:48 43.2 Calc F 21.0-53.0 CA/PHOS PRODUCT 2023-05-24 07:49:48 42.2 Calc F 21.0-53.0 Calcium [Mass/volume] in Serum [...] Plasma 2023-05-24 01:21:33 83 U/L F 46.0-116.0 Magnesium [Mass/volume] in Serum or Plasma 2023-05-24 01:21:33 1.2 mg/dL F 1.3-2.7 Phosphate [Mass/volume] in Serum or Plasma 2023-05-24 01:21:33 4.8 mg/dL F 2.4-5.1 Alkaline phosphatase [Enzymatic activity/volume] in Serum or Plasma 2023-05-24 01:21:33 83 U/L F 46.0-116.0 Magnesium [Mass/volume] in Serum or Plasma 2023-05-24 01:21:33 1.2 mg/dL F 1.3-2.7 Phosphate [Mass/volume] in Serum or Plasma 2023-05-24 01:21:33 4.8 mg/dL F 2.4-5.1 Alkaline phosphatase [Enzymatic activity/volume] in Serum or Plasma 2023-05-24 01:21:33 83 U/L F 46.0-116.0 25-Hydroxyvitamin D3+25-Hydroxyvitamin D2 [Mass/volume] [...] CA CORRECTED 2023-04-25 09:14:01 9.7 mg/dL F CA/PHOS PRODUCT 2023-04-25 08:37:33 42.3 Calc F [...] Plasma 2023-04-24 18:06:58 67 U/L F 46.0-116.0 Parathyrin.intact [Mass/volume] in Serum or Plasma 2023-04-04 07:58:27 211 pg/mL F 18.0-80.0 CA CORRECTED 2023-04-03 22:35:26 9.5 mg/dL F CA*PO4 CORRCTD 2023-04-03 22:31:27 39 Calc F 21.0-53.0 CA/PHOS PRODUCT 2023-04-03 22:31:27 36.9 Calc F 21.0-53.0 Calcium [Mass/volume] in Serum or Plasma 2023-04-03 22:25:13 9 mg/dL F 8.7-10.4 Magnesium [Mass/volume] in Serum or Plasma 2023-04-03 16:22:19 1.7 mg/dL F 1.3-2.7 Phosphate [Mass/volume] in Serum or Plasma 2023-04-03 16:22:19 4.1 mg/dL F 2.4-5.1 Alkaline phosphatase [Enzymatic activity/volume] in Serum or Plasma 2023-04-03 16:22:19 78 U/L F 46.0-116.0 CA CORRECTED 2023-02-27 09:50:54 8.8 mg/dL F [...] CORRCTD 2023-02-27 08:23:53 57.2 Calc F 21.0-53.0 Calcium [...] Plasma 2023-02-26 19:29:35 39 U/L F 46.0-116.0 Magnesium [Mass/volume] in Serum or Plasma 2023-02-26 19:29:35 1.4 mg/dL F 1.3-2.7 Phosphate [Mass/volume] in Serum or Plasma 2023-02-26 19:29:35 6.5 mg/dL F 2.4-5.1 Alkaline phosphatase [Enzymatic activity/volume] in Serum or Plasma 2023-02-26 19:29:35 39 U/L F 46.0-116.0 Magnesium [Mass/volume] in Serum or Plasma 2023-02-26 19:29:35 1.4 mg/dL F 1.3-2.7 Phosphate [Mass/volume] in Serum or Plasma 2023-02-26 19:29:35 6.5 mg/dL F 2.4-5.1 Alkaline phosphatase [Enzymatic activity/volume] in Serum or Plasma 2023-02-26 19:29:35 39 U/L F 46.0-116.0 25-Hydroxyvitamin D3+25-Hydroxyvitamin D2 [Mass/volume] [...] Plasma 2023-01-22 03:53:35 49 U/L F 46.0-116.0 CA CORRECTED 2022-12-28 06:28:56 8.5 mg/dL F CA CORRECTED 2022-12-28 06:28:56 8.5 mg/dL F CA*PO4 CORRCTD 2022-12-28 06:25:36 64.6 Calc F 21.0-53.0 CA/PHOS PRODUCT 2022-12-28 06:25:36 63.1 Calc F 21.0-53.0 CA*PO4 CORRCTD 2022-12-28 06:25:36 64.6 Calc F 21.0-53.0 CA/PHOS PRODUCT 2022-12-28 06:25:36 63.1 Calc F 21.0-53.0 Calcium [Mass/volume] in Serum or Plasma 2022-12-28 06:21:30 8.3 mg/dL F 8.7-10.4 Calcium [Mass/volume] in Serum or Plasma 2022-12-28 06:21:30 8.3 mg/dL F 8.7-10.4 Parathyrin.intact [Mass/volume] in Serum or Plasma 2022-12-28 02:33:08 288 pg/mL F 18.0-80.0 Parathyrin.intact [Mass/volume] in Serum or Plasma 2022-12-28 02:33:08 288 pg/mL F 18.0-80.0 Phosphate [Mass/volume] in Serum or Plasma 2022-12-27 16:17:40 7.6 mg/dL F 2.4-5.1 Alkaline phosphatase [Enzymatic activity/volume] in Serum or Plasma 2022-12-27 16:17:40 75 U/L F 46.0-116.0 Magnesium [Mass/volume] in Serum or Plasma 2022-12-27 16:17:40 1.5 mg/dL F 1.3-2.7 Magnesium [Mass/volume] in Serum or Plasma 2022-12-27 [...] Plasma 2022-11-24 04:47:42 8.2 mg/dL F 8.7-10.4 Magnesium [Mass/volume] in Serum or Plasma 2022-11-24 03:59:27 1.3 mg/dL F 1.3-2.7 Phosphate [Mass/volume] in Serum or Plasma 2022-11-24 03:59:27 5.9 mg/dL F 2.4-5.1 Alkaline phosphatase [Enzymatic [...] CA CORRECTED 2022-10-30 08:27:48 8.2 mg/dL F CA*PO4 CORRCTD 2022-10-30 08:03:41 54.1 Calc F 21.0-53.0 CA/PHOS PRODUCT 2022-10-30 08:03:41 52.8 Calc F 21.0-53.0 CA*PO4 CORRCTD 2022-10-30 08:03:41 54.1 Calc F 21.0-53.0 CA/PHOS PRODUCT 2022-10-30 08:03:41 52.8 Calc F 21.0-53.0 CA/PHOS PRODUCT 2022-10-30 08:03:41 52.8 Calc F 21.0-53.0 CA*PO4 CORRCTD 2022-10-30 08:03:41 54.1 Calc F 21.0-53.0 Calcium [Mass/volume] in Serum or Plasma 2022-10-30 07:43:13 8 mg/dL F 8.7-10.4 Calcium [Mass/volume] in Serum or Plasma 2022-10-30 07:43:13 8 mg/dL F 8.7-10.4 Calcium [Mass/volume] in Serum or Plasma 2022-10-30 07:43:13 8 mg/dL F 8.7-10.4 Magnesium [Mass/volume] in Serum or Plasma 2022-10-30 06:49:36 1.2 mg/dL F 1.3-2.7 Phosphate [Mass/volume] in Serum or Plasma 2022-10-30 06:49:36 6.6 mg/dL F 2.4-5.1 Alkaline phosphatase [Enzymatic activity/volume] in Serum or Plasma 2022-10-30 06:49:36 34 U/L F 46.0-116.0 Magnesium [Mass/volume] in Serum or Plasma 2022-10-30 06:49:36 1.2 mg/dL F 1.3-2.7 Phosphate [Mass/volume] in Serum or Plasma 2022-10-30 06:49:36 6.6 mg/dL F 2.4-5.1 Alkaline phosphatase [Enzymatic activity/volume] in Serum or Plasma 2022-10-30 06:49:36 34 U/L F 46.0-116.0 Magnesium [Mass/volume] in Serum or Plasma 2022-10-30 [...] CA CORRECTED 2022-08-28 05:10:01 7.8 mg/dL F CA/PHOS PRODUCT 2022-08-28 05:07:03 64 Calc F 21.0-53.0 CA*PO4 CORRCTD 2022-08-28 05:07:03 64 Calc F 21.0-53.0 CA/PHOS PRODUCT 2022-08-28 05:07:03 64 Calc F 21.0-53.0 CA*PO4 CORRCTD 2022-08-28 05:07:03 64 Calc F 21.0-53.0 CA/PHOS PRODUCT 2022-08-28 05:07:03 64 Calc F 21.0-53.0 CA*PO4 CORRCTD 2022-08-28 05:07:03 64 Calc F 21.0-53.0 Calcium [Mass/volume] in Serum or Plasma 2022-08-28 05:05:07 7.8 mg/dL F 8.7-10.4 Calcium [Mass/volume] in Serum or Plasma 2022-08-28 05:05:07 7.8 mg/dL F 8.7-10.4 Calcium [Mass/volume] in Serum or Plasma 2022-08-28 05:05:07 7.8 mg/dL F 8.7-10.4 Magnesium [Mass/volume] in Serum or Plasma 2022-08-28 04:35:20 0.9 mg/dL F 1.3-2.7 Phosphate [Mass/volume] in Serum or Plasma 2022-08-28 04:35:20 8.2 mg/dL F 2.4-5.1 Alkaline phosphatase [Enzymatic activity/volume] in Serum or Plasma 2022-08-28 04:35:20 47 U/L F 46.0-116.0 Magnesium [Mass/volume] in Serum or Plasma 2022-08-28 04:35:20 0.9 mg/dL F 1.3-2.7 Phosphate [Mass/volume] in Serum or Plasma 2022-08-28 04:35:20 8.2 mg/dL F 2.4-5.1 Alkaline phosphatase [Enzymatic activity/volume] in Serum or Plasma 2022-08-28 04:35:20 47 U/L F 46.0-116.0 Magnesium [Mass/volume] in Serum or Plasma 2022-08-28 04:35:20 0.9 mg/dL F 1.3-2.7 Phosphate [Mass/volume] in Serum or Plasma 2022-08-28 04:35:20 8.2 mg/dL F 2.4-5.1 Alkaline phosphatase [Enzymatic activity/volume] in Serum or Plasma 2022-08-28 04:35:20 47 U/L F 46.0-116.0 25-Hydroxyvitamin D3+25-Hydroxyvitamin D2 [Mass/volume] in Serum or Plasma 2022-08-28 02:55:26 49.9 ng/mL F 25-Hydroxyvitamin D3+25-Hydroxyvitamin D2 [Mass/volume] in Serum or Plasma 2022-08-28 02:55:26 49.9 ng/mL F 25-Hydroxyvitamin D3+25-Hydroxyvitamin D2 [Mass/volume] in Serum or Plasma 2022-08-28 02:55:26 49.9 ng/mL F CA CORRECTED 2022-07-25 04:43:41 8.3 mg/dL F CA/PHOS PRODUCT 2022-07-25 04:39:31 56 Calc F 21.0-53.0 CA*PO4 CORRCTD 2022-07-25 04:39:31 58.1 Calc F 21.0-53.0 Calcium [Mass/volume] in Serum or Plasma 2022-07-25 04:37:57 8 mg/dL F 8.7-10.4 Parathyrin.intact [Mass/volume] in Serum or Plasma 2022-07-24 22:57:17 355 pg/mL F 18.0-80.0 Alkaline phosphatase [Enzymatic activity/volume] in Serum or Plasma 2022-07-24 20:39:24 98 U/L F 46.0-116.0 Magnesium [Mass/volume] in Serum or Plasma 2022-07-24 20:39:22 1.3 mg/dL F 1.3-2.7 Phosphate [Mass/volume] in Serum or Plasma 2022-07-24 20:39:22 7 mg/dL F 2.4-5.1 CA CORRECTED 2022-06-23 10:13:19 9 mg/dL F CA CORRECTED 2022-06-23 10:13:19 9 mg/dL F CA*PO4 CORRCTD 2022-06-23 05:00:45 56.7 Calc F 21.0-53.0 CA*PO4 CORRCTD 2022-06-23 05:00:45 56.7 Calc F 21.0-53.0 CA/PHOS PRODUCT 2022-06-23 04:56:00 55.4 Calc F 21.0-53.0 CA/PHOS PRODUCT 2022-06-23 04:56:00 55.4 Calc F 21.0-53.0 Calcium [Mass/volume] in Serum or Plasma 2022-06-23 04:52:50 8.8 mg/dL F 8.7-10.4 Calcium [Mass/volume] in Serum or Plasma 2022-06-23 04:52:50 8.8 mg/dL F 8.7-10.4 Parathyrin.intact [Mass/volume] in Serum or Plasma 2022-06-22 22:14:18 191 pg/mL F 18.0-80.0 Parathyrin.intact [Mass/volume] in Serum or Plasma 2022-06-22 22:14:18 191 pg/mL F 18.0-80.0 Alkaline phosphatase [Enzymatic activity/volume] in Serum or Plasma 2022-06-22 17:30:14 103 U/L F 46.0-116.0 Alkaline phosphatase [Enzymatic activity/volume] in Serum or Plasma 2022-06-22 17:30:14 103 U/L F 46.0-116.0 Magnesium [Mass/volume] in Serum or Plasma 2022-06-22 17:30:12 1.7 mg/dL F 1.3-2.7 Phosphate [Mass/volume] in Serum or Plasma 2022-06-22 17:30:12 6.3 mg/dL F 2.4-5.1 Magnesium [Mass/volume] in Serum or Plasma 2022-06-22 17:30:12 1.7 mg/dL F 1.3-2.7 Phosphate [Mass/volume] in Serum or Plasma 2022-06-22 17:30:12 6.3 mg/dL F 2.4-5.1 CA CORRECTED 2022-05-26 04:51:48 8.8 mg/dL F CA CORRECTED 2022-05-26 04:51:48 8.8 mg/dL F CA CORRECTED 2022-05-26 04:51:48 8.8 mg/dL F CA CORRECTED 2022-05-26 04:51:48 8.8 mg/dL F CA/PHOS PRODUCT 2022-05-26 04:40:40 60.2 Calc F 21.0-53.0 CA*PO4 CORRCTD 2022-05-26 04:40:40 61.6 Calc F 21.0-53.0 CA*PO4 CORRCTD 2022-05-26 04:40:40 [...] Plasma 2022-05-26 01:21:17 190 pg/mL F 18.0-80.0 Magnesium [Mass/volume] in Serum or Plasma 2022-05-25 23:33:20 1.3 mg/dL F 1.3-2.7 Phosphate [Mass/volume] in Serum or Plasma 2022-05-25 23:33:20 7 mg/dL F 2.4-5.1 Alkaline phosphatase [Enzymatic activity/volume] in Serum or Plasma 2022-05-25 23:33:20 113 U/L F 46.0-116.0 Magnesium [Mass/volume] in Serum or Plasma 2022-05-25 23:33:20 1.3 mg/dL F 1.3-2.7 Phosphate [Mass/volume] in Serum or Plasma 2022-05-25 23:33:20 7 mg/dL F 2.4-5.1 Alkaline phosphatase [Enzymatic activity/volume] in Serum or Plasma 2022-05-25 23:33:20 113 U/L F 46.0-116.0 Magnesium [Mass/volume] in Serum or Plasma 2022-05-25 23:33:20 1.3 mg/dL F 1.3-2.7 Phosphate [Mass/volume] in Serum or Plasma 2022-05-25 23:33:20 7 mg/dL F 2.4-5.1 Alkaline phosphatase [Enzymatic activity/volume] in Serum or Plasma 2022-05-25 23:33:20 113 U/L F 46.0-116.0 Magnesium [Mass/volume] in Serum or Plasma 2022-05-25 23:33:20 1.3 mg/dL F 1.3-2.7 Phosphate [Mass/volume] in Serum or Plasma 2022-05-25 23:33:20 7 mg/dL F 2.4-5.1 Alkaline phosphatase [Enzymatic activity/volume] in Serum or Plasma 2022-05-25 23:33:20 113 U/L F 46.0-116.0 CA CORRECTED 2022-04-25 09:22:59 9.1 mg/dL F CA CORRECTED 2022-04-25 09:22:59 9.1 mg/dL F CA/PHOS PRODUCT 2022-04-25 03:40:15 61.9 Calc F 21.0-53.0 CA*PO4 CORRCTD 2022-04-25 03:40:15 61.9 Calc F 21.0-53.0 CA*PO4 CORRCTD 2022-04-25 03:40:15 61.9 Calc F 21.0-53.0 CA/PHOS PRODUCT 2022-04-25 03:40:15 61.9 Calc F 21.0-53.0 Calcium [Mass/volume] in Serum or Plasma 2022-04-25 03:22:57 9.1 mg/dL F 8.7-10.4 Calcium [Mass/volume] in Serum or Plasma 2022-04-25 03:22:57 9.1 mg/dL F 8.7-10.4 Parathyrin.intact [Mass/volume] in Serum or Plasma 2022-04-25 00:46:20 164 pg/mL F 18.0-80.0 Parathyrin.intact [Mass/volume] in Serum or Plasma 2022-04-25 00:46:20 164 pg/mL F 18.0-80.0 Magnesium [Mass/volume] in Serum or Plasma 2022-04-24 21:50:18 1.4 mg/dL F 1.3-2.7 Phosphate [Mass/volume] in Serum or Plasma 2022-04-24 21:50:18 6.8 mg/dL F 2.4-5.1 Alkaline phosphatase [Enzymatic activity/volume] in Serum or Plasma 2022-04-24 21:50:18 116 U/L F 46.0-116.0 Magnesium [Mass/volume] in Serum or Plasma 2022-04-24 21:50:18 1.4 mg/dL F 1.3-2.7 Phosphate [Mass/volume] in Serum or Plasma 2022-04-24 21:50:18 6.8 mg/dL F 2.4-5.1 Alkaline phosphatase [Enzymatic activity/volume] in Serum or Plasma 2022-04-24 21:50:18 116 U/L F 46.0-116.0 CA CORRECTED 2022-04-03 09:18:04 8.6 mg/dL F CA/PHOS PRODUCT 2022-04-03 04:22:39 47.9 Calc F 21.0-53.0 CA*PO4 CORRCTD 2022-04-03 04:22:39 49 Calc F 21.0-53.0 Parathyrin.intact [Mass/volume] in Serum [...] Plasma 2022-02-21 01:19:54 125 U/L F 46.0-116.0 Magnesium [Mass/volume] in Serum or Plasma 2022-02-21 01:19:54 1.3 mg/dL F 1.3-2.7 Phosphate [Mass/volume] in Serum or Plasma 2022-02-21 01:19:54 5.3 mg/dL F 2.4-5.1 Alkaline phosphatase [Enzymatic activity/volume] in Serum or Plasma 2022-02-21 01:19:54 125 U/L F 46.0-116.0 Magnesium [Mass/volume] in Serum or Plasma 2022-02-21 01:19:54 1.3 mg/dL F 1.3-2.7 Phosphate [Mass/volume] in Serum or Plasma 2022-02-21 01:19:54 5.3 mg/dL F 2.4-5.1 Alkaline phosphatase [Enzymatic activity/volume] in Serum or Plasma 2022-02-21 01:19:54 125 U/L F 46.0-116.0 25-Hydroxyvitamin D3+25-Hydroxyvitamin D2 [Mass/volume] in Serum or Plasma 2022-02-21 00:07:54 37.2 ng/mL F 30.0-100.0 25-Hydroxyvitamin D3+25-Hydroxyvitamin D2 [Mass/volume] in Serum or Plasma 2022-02-21 00:07:54 37.2 ng/mL F 30.0-100.0 25-Hydroxyvitamin D3+25-Hydroxyvitamin D2 [Mass/volume] in Serum or Plasma 2022-02-21 00:07:54 37.2 ng/mL F 30.0-100.0 CA CORRECTED F CA CORRECTED CA/PHOS PRODUCT Alkaline phosphatase [Enzymatic activity/volume] in Serum or Plasma Phosphate [Mass/volume] in Serum or Plasma Calcium [Mass/volume] in Serum or Plasma CA*PO4 CORRCTD Magnesium [Mass/volume] in Serum or Plasma CA CORRECTED Calcium [Mass/volume] in Serum or Plasma Magnesium [Mass/volume] in Serum or Plasma Alkaline phosphatase [Enzymatic activity/volume] in Serum or Plasma CA*PO4 CORRCTD CA/PHOS PRODUCT Phosphate [Mass/volume] in Serum or Plasma CA/PHOS PRODUCT Alkaline phosphatase [Enzymatic activity/volume] in Serum or Plasma CA*PO4 CORRCTD Phosphate [Mass/volume] in Serum or Plasma CA CORRECTED Calcium [Mass/volume] in Serum or Plasma Magnesium [Mass/volume] in Serum or Plasma Alkaline phosphatase [Enzymatic activity/volume] in Serum or Plasma Calcium [Mass/volume] in Serum or Plasma Phosphate [Mass/volume] in Serum or Plasma CA/PHOS PRODUCT Magnesium [Mass/volume] in Serum or Plasma CA CORRECTED CA*PO4 CORRCTD CA CORRECTED CA/PHOS PRODUCT Phosphate [Mass/volume] in Serum or Plasma CA*PO4 CORRCTD Calcium [Mass/volume] in Serum or Plasma Alkaline phosphatase [Enzymatic activity/volume] in Serum or Plasma Magnesium [Mass/volume] in Serum or Plasma 25-Hydroxyvitamin D3+25-Hydroxyvitamin D2 [Mass/volume] in Serum or Plasma 25-Hydroxyvitamin D3+25-Hydroxyvitamin D2 [Mass/volume] in Serum or Plasma 25-Hydroxyvitamin D3+25-Hydroxyvitamin D2 [Mass/volume] in Serum or Plasma 25-Hydroxyvitamin D3+25-Hydroxyvitamin D2 [Mass/volume] in Serum or Plasma 25-Hydroxyvitamin D3+25-Hydroxyvitamin D2 [Mass/volume] in Serum or Plasma Parathyrin.intact [Mass/volume] in Serum or Plasma Parathyrin.intact [Mass/volume] in Serum or Plasma Parathyrin.intact [Mass/volume] in Serum or Plasma Parathyrin.intact [Mass/volume] in Serum or Plasma Parathyrin.intact [Mass/volume] in Serum or Plasma Nutrition Description Draw Date Result/Unit Status Ref Range Result Comments Potassium [Moles/volume] in Serum or Plasma 2024-10-29 07:32:19 3.5 mEq/L F 3.5-5.1 A/G RATIO 2024-10-29 06:33:17 1.4 Calc F 1.0-2.5 GLOBULIN 2024-10-29 06:33:17 2.1 g/dL F 0.9-5.0 Glucose [Mass/volume] in Serum or Plasma 2024-10-29 06:32:21 129 mg/dL F 74.0-106.0 Albumin [Mass/volume] in Serum or Plasma by Bromocresol green (BCG) dye binding method 2024-10-29 06:32:21 3 g/dL F 3.2-4.8 Protein [Mass/volume] in Serum or Plasma 2024-10-29 06:32:21 5.1 g/dL F 5.7-8.2 Bicarbonate [Moles/volume] in Serum or Plasma 2024-10-29 06:32:21 18 mEq/L F 20.0-31.0 Lactate dehydrogenase [Enzymatic activity/volume] in Serum or Plasma 2024-10-29 06:32:21 291 U/L F 120.0-246.0 Potassium [Moles/volume] in Serum or Plasma 2024-10-10 04:59:59 2.9 mEq/L F Albumin [Mass/volume] in Serum or Plasma by Bromocresol green (BCG) dye binding method 2024-10-10 04:59:59 2.4 g/dL F Glucose [Mass/volume] in Serum or Plasma 2024-10-10 04:59:59 115 mg/dL F 70-99 GLOBULIN 2024-10-08 17:25:28 F Unable to Calculate.,Recollect - Quantity not sufficient A/G RATIO 2024-10-08 17:25:28 F Unable to Calculate.,Recollect - Quantity not sufficient Glucose [Mass/volume] in Serum or Plasma 2024-10-08 17:24:44 F Recollect - Augie tity not sufficient Potassium [Moles/volume] in Serum or Plasma 2024-10-08 17:24:44 F Recollect - Augie tity not sufficient Bicarbonate [Moles/volume] in Serum or Plasma 2024-10-08 17:24:44 F Recollect - Augie tity not sufficient Albumin [Mass/volume] in Serum or Plasma by Bromocresol green (BCG) dye binding method 2024-10-08 17:24:44 F Recollect - Augie tity not sufficient Lactate dehydrogenase [Enzymatic activity/volume] in Serum or Plasma 2024-10-08 17:24:44 F Recollect - Augie tity not sufficient Protein [Mass/volume] in Serum or Plasma 2024-10-08 17:24:44 F Recollect - Augie tity not sufficient Potassium [Moles/volume] in Serum or Plasma 2024-09-05 04:59:59 3.1 F Albumin [Mass/volume] in Serum or Plasma by Bromocresol green (BCG) dye binding method 2024-09-05 04:59:59 1.9 F CHOL/HDL RATIO 2024-08-28 06:48:15 6 Calc F 3.3-5.0 VLDL-CHOL(CALC) 2024-08-28 06:48:15 75 mg/dL F 0.0-29.0 LDL-CHOLESTEROL 2024-08-28 06:48:15 35 mg/dL F 0.0-99.0 GLOBULIN 2024-08-28 06:48:15 2.3 g/dL F 0.9-5.0 A/G RATIO 2024-08-28 06:48:15 1.4 Calc F 1.0-2.5 A/G RATIO 2024-08-28 06:48:15 1.4 Calc F 1.0-2.5 LDL-CHOLESTEROL 2024-08-28 06:48:15 35 mg/dL F 0.0-99.0 CHOL/HDL RATIO 2024-08-28 06:48:15 6 Calc F 3.3-5.0 GLOBULIN 2024-08-28 06:48:15 2.3 g/dL F 0.9-5.0 VLDL-CHOL(CALC) 2024-08-28 06:48:15 75 mg/dL F 0.0-29.0 LDL-CHOLESTEROL 2024-08-28 06:48:15 35 mg/dL F 0.0-99.0 A/G RATIO 2024-08-28 06:48:15 1.4 Calc F 1.0-2.5 CHOL/HDL RATIO 2024-08-28 06:48:15 6 Calc F 3.3-5.0 GLOBULIN 2024-08-28 06:48:15 2.3 g/dL F 0.9-5.0 VLDL-CHOL(CALC) 2024-08-28 06:48:15 75 mg/dL F 0.0-29.0 VLDL-CHOL(CALC) 2024-08-28 06:48:15 75 mg/dL F 0.0-29.0 LDL-CHOLESTEROL 2024-08-28 06:48:15 35 mg/dL F 0.0-99.0 GLOBULIN 2024-08-28 06:48:15 2.3 g/dL F 0.9-5.0 A/G RATIO 2024-08-28 06:48:15 1.4 Calc F 1.0-2.5 CHOL/HDL RATIO 2024-08-28 06:48:15 6 Calc F 3.3-5.0 Cholesterol in HDL [Mass/volume] in Serum or Plasma 2024-08-28 06:45:07 22 mg/dL F 40.0-60.0 Bicarbonate [Moles/volume] in Serum or Plasma 2024-08-28 06:45:07 13 mEq/L F 20.0-31.0 Cholesterol [Mass/volume] in Serum or Plasma 2024-08-28 06:45:07 132 mg/dL F 0.0-199.0 Glucose [Mass/volume] in Serum or Plasma 2024-08-28 06:45:07 119 mg/dL F 74.0-106.0 Protein [Mass/volume] in Serum or Plasma 2024-08-28 06:45:07 377 mg/dL F 0.0-149.0 Protein [Mass/volume] in Serum or Plasma 2024-08-28 06:45:07 5.5 g/dL F 5.7-8.2 Albumin [Mass/volume] in Serum or Plasma by Bromocresol green (BCG) dye binding method 2024-08-28 06:45:07 3.2 g/dL F 3.2-4.8 Glucose [Mass/volume] in Serum or Plasma 2024-08-28 06:45:07 119 mg/dL F 74.0-106.0 Protein [Mass/volume] in Serum or Plasma 2024-08-28 06:45:07 377 mg/dL F 0.0-149.0 Albumin [Mass/volume] in Serum or Plasma by Bromocresol green (BCG) dye binding method 2024-08-28 06:45:07 3.2 g/dL F 3.2-4.8 Cholesterol [Mass/volume] in Serum or Plasma 2024-08-28 06:45:07 132 mg/dL F 0.0-199.0 Bicarbonate [Moles/volume] in Serum or Plasma 2024-08-28 06:45:07 13 mEq/L F 20.0-31.0 Protein [Mass/volume] in Serum or Plasma 2024-08-28 06:45:07 5.5 g/dL F 5.7-8.2 Cholesterol in HDL [Mass/volume] in Serum or Plasma 2024-08-28 06:45:07 22 mg/dL F 40.0-60.0 Protein [Mass/volume] in Serum or Plasma 2024-08-28 06:45:07 377 mg/dL F 0.0-149.0 Glucose [Mass/volume] in Serum or Plasma 2024-08-28 06:45:07 119 mg/dL F 74.0-106.0 Cholesterol [Mass/volume] in Serum or Plasma 2024-08-28 06:45:07 132 mg/dL F 0.0-199.0 Bicarbonate [Moles/volume] in Serum or Plasma 2024-08-28 06:45:07 13 mEq/L F 20.0-31.0 Albumin [Mass/volume] in Serum or Plasma by Bromocresol green (BCG) dye binding method 2024-08-28 06:45:07 3.2 g/dL F 3.2-4.8 Cholesterol in HDL [Mass/volume] in Serum or Plasma 2024-08-28 06:45:07 22 mg/dL F 40.0-60.0 Protein [Mass/volume] in Serum or Plasma 2024-08-28 06:45:07 5.5 g/dL F 5.7-8.2 Protein [Mass/volume] in Serum or Plasma 2024-08-28 06:45:07 377 mg/dL F 0.0-149.0 Cholesterol [Mass/volume] in Serum or Plasma 2024-08-28 06:45:07 132 mg/dL F 0.0-199.0 Bicarbonate [Moles/volume] in Serum or Plasma 2024-08-28 06:45:07 13 mEq/L F 20.0-31.0 Albumin [Mass/volume] in Serum or Plasma by Bromocresol green (BCG) dye binding method 2024-08-28 06:45:07 3.2 g/dL F 3.2-4.8 Cholesterol in HDL [Mass/volume] in Serum or Plasma 2024-08-28 06:45:07 22 mg/dL F 40.0-60.0 Protein [Mass/volume] in Serum or Plasma 2024-08-28 06:45:07 5.5 g/dL F 5.7-8.2 Glucose [Mass/volume] in Serum or Plasma 2024-08-28 06:45:07 119 mg/dL F 74.0-106.0 Potassium [Moles/volume] in Serum or Plasma 2024-08-28 06:44:11 F Recollect - Hemolyzed specimen,Recollect - Hemolyzed specimen,Recollect - Hemolyzed specimen Lactate dehydrogenase [Enzymatic activity/volume] in Serum or Plasma 2024-08-28 06:44:11 F Recollect - Hemolyzed specimen,Recollect - Hemolyzed specimen,Recollect - Hemolyzed specimen Lactate dehydrogenase [Enzymatic activity/volume] in Serum or Plasma 2024-08-28 06:44:11 F Recollect - Hemolyzed specimen Potassium [Moles/volume] in Serum or Plasma 2024-08-28 06:44:11 F Recollect - Hemolyzed specimen Lactate dehydrogenase [Enzymatic activity/volume] in Serum or Plasma 2024-08-28 06:44:11 F Recollect - Hemolyzed specimen Potassium [Moles/volume] in Serum or Plasma 2024-08-28 06:44:11 F Recollect - Hemolyzed specimen Potassium [Moles/volume] in Serum or Plasma 2024-08-28 06:44:11 F Recollect - Hemolyzed specimen Lactate dehydrogenase [Enzymatic activity/volume] in Serum or Plasma 2024-08-28 06:44:11 F Recollect - Hemolyzed specimen Potassium [Moles/volume] in Serum or Plasma 2024-08-04 06:36:57 3.6 mEq/L F 3.5-5.1 Potassium [Moles/volume] in Serum or Plasma 2024-08-04 06:36:57 3.6 mEq/L F 3.5-5.1 A/G RATIO 2024-08-03 14:34:30 1.7 Calc F 1.0-2.5 GLOBULIN 2024-08-03 14:34:30 1.9 g/dL F 0.9-5.0 A/G RATIO 2024-08-03 14:34:30 1.7 Calc F 1.0-2.5 GLOBULIN 2024-08-03 14:34:30 1.9 g/dL F 0.9-5.0 Glucose [Mass/volume] in Serum or Plasma 2024-08-03 14:33:21 105 mg/dL F 74.0-106.0 Lactate dehydrogenase [Enzymatic activity/volume] in Serum or Plasma 2024-08-03 14:33:21 246 U/L F 120.0-246.0 Protein [Mass/volume] in Serum or Plasma 2024-08-03 14:33:21 5.1 g/dL F 5.7-8.2 Albumin [Mass/volume] in Serum or Plasma by Bromocresol green (BCG) dye binding method 2024-08-03 14:33:21 3.2 g/dL F 3.2-4.8 Bicarbonate [Moles/volume] in Serum or Plasma 2024-08-03 14:33:21 28 mEq/L F 20.0-31.0 Albumin [Mass/volume] in Serum or Plasma by Bromocresol green (BCG) dye binding method 2024-08-03 14:33:21 3.2 g/dL F 3.2-4.8 Bicarbonate [Moles/volume] in Serum or Plasma 2024-08-03 14:33:21 28 mEq/L F 20.0-31.0 Glucose [Mass/volume] in Serum or Plasma 2024-08-03 14:33:21 105 mg/dL F 74.0-106.0 Lactate dehydrogenase [Enzymatic activity/volume] in Serum or Plasma 2024-08-03 14:33:21 246 U/L F 120.0-246.0 Protein [Mass/volume] in Serum or Plasma 2024-08-03 14:33:21 5.1 g/dL F 5.7-8.2 Potassium [Moles/volume] in Serum or Plasma 2024-06-25 18:58:29 3.7 mEq/L F 3.5-5.5 Potassium [Moles/volume] in Serum or Plasma 2024-06-25 18:58:29 3.7 mEq/L F 3.5-5.5 Potassium [Moles/volume] in Serum or Plasma 2024-06-25 18:58:29 3.7 mEq/L F 3.5-5.5 Potassium [Moles/volume] in Serum or Plasma 2024-06-25 18:58:29 3.7 mEq/L F 3.5-5.5 GLOBULIN 2024-06-25 12:42:19 2.1 g/dL F 0.9-5.0 A/G RATIO 2024-06-25 12:42:19 1.7 Calc F 1.0-2.5 GLOBULIN 2024-06-25 12:42:19 2.1 g/dL F 0.9-5.0 A/G RATIO 2024-06-25 12:42:19 1.7 Calc F 1.0-2.5 A/G RATIO 2024-06-25 12:42:19 1.7 Calc F 1.0-2.5 GLOBULIN 2024-06-25 12:42:19 2.1 g/dL F 0.9-5.0 GLOBULIN 2024-06-25 12:42:19 2.1 g/dL F 0.9-5.0 A/G RATIO 2024-06-25 12:42:19 1.7 Calc F 1.0-2.5 Lactate dehydrogenase [Enzymatic activity/volume] in Serum or Plasma 2024-06-25 12:41:16 236 U/L F 120.0-246.0 Bicarbonate [Moles/volume] in Serum or Plasma 2024-06-25 12:41:16 29 mEq/L F 20.0-31.0 Albumin [Mass/volume] in Serum or Plasma by Bromocresol green (BCG) dye binding method 2024-06-25 12:41:16 3.5 g/dL F 3.4-4.8 Protein [Mass/volume] in Serum or Plasma 2024-06-25 12:41:16 5.6 g/dL F 5.7-8.2 Glucose [Mass/volume] in Serum or Plasma 2024-06-25 12:41:16 121 mg/dL F 70.0-99.0 Lactate dehydrogenase [Enzymatic activity/volume] in Serum or Plasma 2024-06-25 12:41:16 236 U/L F 120.0-246.0 Bicarbonate [Moles/volume] in Serum or Plasma 2024-06-25 12:41:16 29 mEq/L F 20.0-31.0 Albumin [Mass/volume] in Serum or Plasma by Bromocresol green (BCG) dye binding method 2024-06-25 12:41:16 3.5 g/dL F 3.4-4.8 Protein [Mass/volume] in Serum or Plasma 2024-06-25 12:41:16 5.6 g/dL F 5.7-8.2 Glucose [Mass/volume] in Serum or Plasma 2024-06-25 12:41:16 121 mg/dL F 70.0-99.0 Albumin [Mass/volume] in Serum or Plasma by Bromocresol green (BCG) dye binding method 2024-06-25 12:41:16 3.5 g/dL F 3.4-4.8 Glucose [Mass/volume] in Serum or Plasma 2024-06-25 12:41:16 121 mg/dL F 70.0-99.0 Bicarbonate [Moles/volume] in Serum or Plasma 2024-06-25 12:41:16 29 mEq/L F 20.0-31.0 Lactate dehydrogenase [Enzymatic activity/volume] in Serum or Plasma 2024-06-25 12:41:16 236 U/L F 120.0-246.0 Protein [Mass/volume] in Serum or Plasma 2024-06-25 12:41:16 5.6 g/dL F 5.7-8.2 Glucose [Mass/volume] in Serum or Plasma 2024-06-25 12:41:16 121 mg/dL F 70.0-99.0 Bicarbonate [Moles/volume] in Serum or Plasma 2024-06-25 12:41:16 29 mEq/L F 20.0-31.0 Protein [Mass/volume] in Serum or Plasma 2024-06-25 12:41:16 5.6 g/dL F 5.7-8.2 Albumin [Mass/volume] in Serum or Plasma by Bromocresol green (BCG) dye binding method 2024-06-25 12:41:16 3.5 g/dL F 3.4-4.8 Lactate dehydrogenase [Enzymatic activity/volume] in Serum or Plasma 2024-06-25 12:41:16 236 U/L F 120.0-246.0 Potassium [Moles/volume] in Serum or Plasma 2024-04-29 07:04:12 3.4 mEq/L F 3.5-5.5 Potassium [Moles/volume] in Serum or Plasma 2024-04-29 07:04:12 3.4 mEq/L F 3.5-5.5 GLOBULIN 2024-04-28 14:31:26 2.2 g/dL F 0.9-5.0 A/G RATIO 2024-04-28 14:31:26 1.5 Calc F 1.0-2.5 GLOBULIN 2024-04-28 14:31:26 2.2 g/dL F 0.9-5.0 A/G RATIO 2024-04-28 14:31:26 1.5 Calc F 1.0-2.5 Lactate dehydrogenase [Enzymatic activity/volume] in Serum or Plasma 2024-04-28 14:30:26 220 U/L F 120.0-246.0 Bicarbonate [Moles/volume] in Serum or Plasma 2024-04-28 14:30:26 28 mEq/L F 20.0-31.0 Albumin [Mass/volume] in Serum or Plasma by Bromocresol green (BCG) dye binding method 2024-04-28 14:30:26 3.3 g/dL F 3.4-4.8 Protein [Mass/volume] in Serum or Plasma 2024-04-28 14:30:26 5.5 g/dL F 5.7-8.2 Glucose [Mass/volume] in Serum or Plasma 2024-04-28 14:30:26 98 mg/dL F 70.0-99.0 Lactate dehydrogenase [Enzymatic activity/volume] in Serum or Plasma 2024-04-28 14:30:26 220 U/L F 120.0-246.0 Bicarbonate [Moles/volume] in Serum or Plasma 2024-04-28 14:30:26 28 mEq/L F 20.0-31.0 Albumin [Mass/volume] in Serum or Plasma by Bromocresol green (BCG) dye binding method 2024-04-28 14:30:26 3.3 g/dL F 3.4-4.8 Protein [Mass/volume] in Serum or Plasma 2024-04-28 14:30:26 5.5 g/dL F 5.7-8.2 Glucose [Mass/volume] in Serum or Plasma 2024-04-28 14:30:26 98 mg/dL F 70.0-99.0 Potassium [Moles/volume] in Serum or Plasma 2024-03-26 08:21:45 3.4 mEq/L F 3.5-5.5 A/G RATIO 2024-03-26 01:27:06 1.6 Calc F 1.0-2.5 GLOBULIN 2024-03-26 01:27:06 2.3 g/dL F 0.9-5.0 Lactate dehydrogenase [Enzymatic activity/volume] in Serum or Plasma 2024-03-26 01:26:18 211 U/L F 120.0-246.0 Bicarbonate [Moles/volume] in Serum or Plasma 2024-03-26 01:26:18 30 mEq/L F 20.0-31.0 Albumin [Mass/volume] in Serum or Plasma by Bromocresol green (BCG) dye binding method 2024-03-26 01:26:18 3.6 g/dL F 3.4-4.8 Protein [Mass/volume] in Serum or Plasma 2024-03-26 01:26:18 5.9 g/dL F 5.7-8.2 Glucose [Mass/volume] in Serum or Plasma 2024-03-26 01:26:18 147 mg/dL F 70.0-99.0 Potassium [Moles/volume] in Serum or Plasma 2024-03-07 06:46:32 3.2 mEq/L F 3.5-5.5 Potassium [Moles/volume] in Serum or Plasma 2024-03-07 06:46:32 3.2 mEq/L F 3.5-5.5 VLDL-CHOL(CALC) 2024-03-06 23:36:12 73 mg/dL F 0.0-29.0 LDL-CHOLESTEROL 2024-03-06 23:36:12 66 mg/dL F 0.0-99.0 GLOBULIN 2024-03-06 23:36:12 2.1 g/dL F 0.9-5.0 A/G RATIO 2024-03-06 23:36:12 1.6 Calc F 1.0-2.5 CHOL/HDL RATIO 2024-03-06 23:36:12 5 Calc F 3.3-5.0 VLDL-CHOL(CALC) 2024-03-06 23:36:12 73 mg/dL F 0.0-29.0 LDL-CHOLESTEROL 2024-03-06 23:36:12 66 mg/dL F 0.0-99.0 A/G RATIO 2024-03-06 23:36:12 1.6 Calc F 1.0-2.5 GLOBULIN 2024-03-06 23:36:12 2.1 g/dL F 0.9-5.0 CHOL/HDL RATIO 2024-03-06 23:36:12 5 Calc F 3.3-5.0 Protein [Mass/volume] in Serum or Plasma 2024-03-06 23:33:23 365 mg/dL F 0.0-149.0 Cholesterol [Mass/volume] in Serum or Plasma 2024-03-06 23:33:23 174 mg/dL F 0.0-199.0 Lactate dehydrogenase [Enzymatic activity/volume] in Serum or Plasma 2024-03-06 23:33:23 237 U/L F 120.0-246.0 Bicarbonate [Moles/volume] in Serum or Plasma 2024-03-06 23:33:23 30 mEq/L F 20.0-31.0 Albumin [Mass/volume] in Serum or Plasma by Bromocresol green (BCG) dye binding method 2024-03-06 23:33:23 3.4 g/dL F 3.4-4.8 Cholesterol in HDL [Mass/volume] in Serum or Plasma 2024-03-06 23:33:23 35 mg/dL F 40.0-60.0 Protein [Mass/volume] in Serum or Plasma 2024-03-06 23:33:23 5.5 g/dL F 5.7-8.2 Glucose [Mass/volume] in Serum or Plasma 2024-03-06 23:33:23 168 mg/dL F 70.0-99.0 Protein [Mass/volume] in Serum or Plasma 2024-03-06 23:33:23 365 mg/dL F 0.0-149.0 Cholesterol [Mass/volume] in Serum or Plasma 2024-03-06 23:33:23 174 mg/dL F 0.0-199.0 Lactate dehydrogenase [Enzymatic activity/volume] in Serum or Plasma 2024-03-06 23:33:23 237 U/L F 120.0-246.0 Bicarbonate [Moles/volume] in Serum or Plasma 2024-03-06 23:33:23 30 mEq/L F 20.0-31.0 Albumin [Mass/volume] in Serum or Plasma by Bromocresol green (BCG) dye binding method 2024-03-06 23:33:23 3.4 g/dL F 3.4-4.8 Cholesterol in HDL [Mass/volume] in Serum or Plasma 2024-03-06 23:33:23 35 mg/dL F 40.0-60.0 Protein [Mass/volume] in Serum or Plasma 2024-03-06 23:33:23 5.5 g/dL F 5.7-8.2 Glucose [Mass/volume] in Serum or Plasma 2024-03-06 23:33:23 168 mg/dL F 70.0-99.0 Potassium [Moles/volume] in Serum or Plasma 2024-01-29 08:04:30 3.6 mEq/L F 3.5-5.5 GLOBULIN 2024-01-28 19:22:27 1.9 g/dL F 0.9-5.0 A/G RATIO 2024-01-28 19:22:27 1.9 Calc F 1.0-2.5 Lactate dehydrogenase [Enzymatic activity/volume] in Serum or Plasma 2024-01-28 19:12:24 262 U/L F 120.0-246.0 Bicarbonate [Moles/volume] in Serum or Plasma 2024-01-28 19:12:24 28 mEq/L F 20.0-31.0 Albumin [Mass/volume] in Serum or Plasma by Bromocresol green (BCG) dye binding method 2024-01-28 19:12:24 3.7 g/dL F 3.4-4.8 Glucose [Mass/volume] in Serum or Plasma 2024-01-28 19:12:24 111 mg/dL F 70.0-99.0 Protein [Mass/volume] in Serum or Plasma 2024-01-28 19:12:24 5.6 g/dL F 5.7-8.2 Potassium [Moles/volume] in Serum or Plasma 2024-01-01 07:50:11 3.9 mEq/L F 3.5-5.5 Potassium [Moles/volume] in Serum or Plasma 2024-01-01 07:50:11 3.9 mEq/L F 3.5-5.5 GLOBULIN 2023-12-31 23:36:38 2.2 g/dL F 0.9-5.0 A/G RATIO 2023-12-31 23:36:38 1.5 Calc F 1.0-2.5 A/G RATIO 2023-12-31 23:36:38 1.5 Calc F 1.0-2.5 GLOBULIN 2023-12-31 23:36:38 2.2 g/dL F 0.9-5.0 Lactate dehydrogenase [Enzymatic activity/volume] in Serum or Plasma 2023-12-31 23:35:20 267 U/L F 120.0-246.0 Bicarbonate [Moles/volume] in Serum or Plasma 2023-12-31 23:35:20 27 mEq/L F 20.0-31.0 Albumin [Mass/volume] in Serum or Plasma by Bromocresol green (BCG) dye binding method 2023-12-31 23:35:20 3.4 g/dL F 3.4-4.8 Protein [Mass/volume] in Serum or Plasma 2023-12-31 23:35:20 5.6 g/dL F 5.7-8.2 Glucose [Mass/volume] in Serum or Plasma 2023-12-31 23:35:20 139 mg/dL F 70.0-99.0 Lactate dehydrogenase [Enzymatic activity/volume] in Serum or Plasma 2023-12-31 23:35:20 267 U/L F 120.0-246.0 Bicarbonate [Moles/volume] in Serum or Plasma 2023-12-31 23:35:20 27 mEq/L F 20.0-31.0 Albumin [Mass/volume] in Serum or Plasma by Bromocresol green (BCG) dye binding method 2023-12-31 23:35:20 3.4 g/dL F 3.4-4.8 Protein [Mass/volume] in Serum or Plasma 2023-12-31 23:35:20 5.6 g/dL F 5.7-8.2 Glucose [Mass/volume] in Serum or Plasma 2023-12-31 23:35:20 139 mg/dL F 70.0-99.0 Potassium [Moles/volume] in Serum or Plasma 2023-11-20 04:55:01 3.9 mEq/L F 3.5-5.5 Potassium [Moles/volume] in Serum or Plasma 2023-11-20 04:55:01 3.9 mEq/L F 3.5-5.5 Potassium [Moles/volume] in Serum or Plasma 2023-11-20 04:55:01 3.9 mEq/L F 3.5-5.5 A/G RATIO 2023-11-20 00:49:18 1.7 Calc F 1.0-2.5 GLOBULIN 2023-11-20 00:49:18 2.1 g/dL F 0.9-5.0 GLOBULIN 2023-11-20 00:49:18 2.1 g/dL F 0.9-5.0 A/G RATIO 2023-11-20 00:49:18 1.7 Calc F 1.0-2.5 GLOBULIN 2023-11-20 00:49:18 2.1 g/dL F 0.9-5.0 A/G RATIO 2023-11-20 00:49:18 1.7 Calc F 1.0-2.5 Lactate dehydrogenase [Enzymatic activity/volume] in Serum or Plasma 2023-11-20 00:49:13 289 U/L F 120.0-246.0 Protein [Mass/volume] in Serum or Plasma 2023-11-20 00:49:13 5.7 g/dL F 5.7-8.2 Glucose [Mass/volume] in Serum or Plasma 2023-11-20 00:49:13 119 mg/dL F 70.0-99.0 Bicarbonate [Moles/volume] in Serum or Plasma 2023-11-20 00:49:13 25 mEq/L F 20.0-31.0 Albumin [Mass/volume] in Serum or Plasma by Bromocresol green (BCG) dye binding method 2023-11-20 00:49:13 3.6 g/dL F 3.4-4.8 Lactate dehydrogenase [Enzymatic activity/volume] in Serum or Plasma 2023-11-20 00:49:13 289 U/L F 120.0-246.0 Bicarbonate [Moles/volume] in Serum or Plasma 2023-11-20 00:49:13 25 mEq/L F 20.0-31.0 Albumin [Mass/volume] in Serum or Plasma by Bromocresol green (BCG) dye binding method 2023-11-20 00:49:13 3.6 g/dL F 3.4-4.8 Protein [Mass/volume] in Serum or Plasma 2023-11-20 00:49:13 5.7 g/dL F 5.7-8.2 Glucose [Mass/volume] in Serum or Plasma 2023-11-20 00:49:13 119 mg/dL F 70.0-99.0 Lactate dehydrogenase [Enzymatic activity/volume] in Serum or Plasma 2023-11-20 00:49:13 289 U/L F 120.0-246.0 Bicarbonate [Moles/volume] in Serum or Plasma 2023-11-20 00:49:13 25 mEq/L F 20.0-31.0 Albumin [Mass/volume] in Serum or Plasma by Bromocresol green (BCG) dye binding method 2023-11-20 00:49:13 3.6 g/dL F 3.4-4.8 Protein [Mass/volume] in Serum or Plasma 2023-11-20 00:49:13 5.7 g/dL F 5.7-8.2 Glucose [Mass/volume] in Serum or Plasma 2023-11-20 00:49:13 119 mg/dL F 70.0-99.0 Potassium [Moles/volume] in Serum or Plasma 2023-10-24 05:37:39 3.4 mEq/L F 3.5-5.5 Potassium [Moles/volume] in Serum or Plasma 2023-10-24 05:37:39 3.4 mEq/L F 3.5-5.5 GLOBULIN 2023-10-23 16:48:45 1.9 g/dL F 0.9-5.0 A/G RATIO 2023-10-23 16:48:45 1.9 Calc F 1.0-2.5 GLOBULIN 2023-10-23 16:48:45 1.9 g/dL F 0.9-5.0 A/G RATIO 2023-10-23 16:48:45 1.9 Calc F 1.0-2.5 Bicarbonate [Moles/volume] in Serum or Plasma 2023-10-23 16:48:18 26 mEq/L F 20.0-31.0 Protein [Mass/volume] in Serum or Plasma 2023-10-23 16:48:18 5.5 g/dL F 5.7-8.2 Glucose [Mass/volume] in Serum or Plasma 2023-10-23 16:48:18 156 mg/dL F 70.0-99.0 Bicarbonate [Moles/volume] in Serum or Plasma 2023-10-23 16:48:18 26 mEq/L F 20.0-31.0 Protein [Mass/volume] in Serum or Plasma 2023-10-23 16:48:18 5.5 g/dL F 5.7-8.2 Glucose [Mass/volume] in Serum or Plasma 2023-10-23 [...] method 2023-10-23 16:48:17 3.6 g/dL F 3.4-4.8 GLOBULIN 2023-09-26 07:18:00 2 g/dL F 0.9-5.0 A/G RATIO 2023-09-26 07:18:00 1.8 Calc F 1.0-2.5 GLOBULIN 2023-09-26 07:18:00 2 g/dL F 0.9-5.0 A/G RATIO 2023-09-26 07:18:00 1.8 Calc F 1.0-2.5 Potassium [Moles/volume] in Serum or Plasma 2023-09-25 23:13:10 3.4 mEq/L F 3.5-5.5 Potassium [Moles/volume] in Serum or Plasma 2023-09-25 23:13:10 3.4 mEq/L F 3.5-5.5 Lactate dehydrogenase [Enzymatic activity/volume] [...] Plasma 2023-09-25 13:43:37 129 mg/dL F 70.0-99.0 Potassium [Moles/volume] in Serum or Plasma 2023-08-27 07:06:48 3.7 mEq/L F 3.5-5.5 Potassium [Moles/volume] in Serum or Plasma 2023-08-27 07:06:48 3.7 mEq/L F 3.5-5.5 Potassium [Moles/volume] in Serum or Plasma 2023-08-27 07:06:48 3.7 mEq/L F 3.5-5.5 Potassium [Moles/volume] in Serum or Plasma 2023-08-27 07:06:48 3.7 mEq/L F 3.5-5.5 VLDL-CHOL(CALC) 2023-08-26 18:51:54 37 mg/dL F 0.0-29.0 LDL-CHOLESTEROL 2023-08-26 18:51:54 48 mg/dL F 0.0-99.0 GLOBULIN 2023-08-26 18:51:54 2 g/dL F 0.9-5.0 A/G RATIO 2023-08-26 18:51:54 1.8 Calc F 1.0-2.5 CHOL/HDL RATIO 2023-08-26 18:51:54 3.1 Calc F 3.3-5.0 LDL-CHOLESTEROL 2023-08-26 18:51:54 48 mg/dL F 0.0-99.0 GLOBULIN 2023-08-26 18:51:54 2 g/dL F 0.9-5.0 A/G RATIO 2023-08-26 18:51:54 1.8 Calc F 1.0-2.5 CHOL/HDL RATIO 2023-08-26 18:51:54 3.1 Calc F 3.3-5.0 VLDL-CHOL(CALC) 2023-08-26 18:51:54 37 mg/dL F 0.0-29.0 VLDL-CHOL(CALC) 2023-08-26 18:51:54 37 mg/dL F 0.0-29.0 LDL-CHOLESTEROL 2023-08-26 18:51:54 48 mg/dL F 0.0-99.0 GLOBULIN 2023-08-26 18:51:54 2 g/dL F 0.9-5.0 A/G RATIO 2023-08-26 18:51:54 1.8 Calc F 1.0-2.5 CHOL/HDL RATIO 2023-08-26 18:51:54 3.1 Calc F 3.3-5.0 VLDL-CHOL(CALC) 2023-08-26 18:51:54 37 mg/dL F 0.0-29.0 LDL-CHOLESTEROL 2023-08-26 18:51:54 48 mg/dL F 0.0-99.0 A/G RATIO 2023-08-26 18:51:54 1.8 Calc F 1.0-2.5 GLOBULIN 2023-08-26 18:51:54 2 g/dL F 0.9-5.0 CHOL/HDL RATIO 2023-08-26 18:51:54 3.1 Calc F 3.3-5.0 Protein [Mass/volume] in Serum or Plasma 2023-08-26 18:51:36 183 mg/dL F 0.0-149.0 Cholesterol [Mass/volume] in Serum or Plasma 2023-08-26 18:51:36 126 mg/dL F 0.0-199.0 Lactate dehydrogenase [Enzymatic activity/volume] in Serum or Plasma 2023-08-26 18:51:36 255 U/L F 120.0-246.0 Bicarbonate [Moles/volume] in Serum or Plasma 2023-08-26 18:51:36 24 mEq/L F 20.0-31.0 Albumin [Mass/volume] in Serum or Plasma by Bromocresol green (BCG) dye binding method 2023-08-26 18:51:36 3.6 g/dL F 3.4-4.8 Cholesterol in HDL [Mass/volume] in Serum or Plasma 2023-08-26 18:51:36 41 mg/dL F 40.0-60.0 Protein [Mass/volume] in Serum or Plasma 2023-08-26 18:51:36 5.6 g/dL F 5.7-8.2 Glucose [Mass/volume] in Serum or Plasma 2023-08-26 18:51:36 184 mg/dL F 70.0-99.0 Protein [Mass/volume] in Serum or Plasma 2023-08-26 18:51:36 183 mg/dL F 0.0-149.0 Cholesterol [Mass/volume] in Serum or Plasma 2023-08-26 18:51:36 126 mg/dL F 0.0-199.0 Lactate dehydrogenase [Enzymatic activity/volume] in Serum or Plasma 2023-08-26 18:51:36 255 U/L F 120.0-246.0 Bicarbonate [Moles/volume] in Serum or Plasma 2023-08-26 18:51:36 24 mEq/L F 20.0-31.0 Albumin [Mass/volume] in Serum or Plasma by Bromocresol green (BCG) dye binding method 2023-08-26 18:51:36 3.6 g/dL F 3.4-4.8 Cholesterol in HDL [Mass/volume] in Serum or Plasma 2023-08-26 18:51:36 41 mg/dL F 40.0-60.0 Protein [Mass/volume] in Serum or Plasma 2023-08-26 18:51:36 5.6 g/dL F 5.7-8.2 Glucose [Mass/volume] in Serum or Plasma 2023-08-26 18:51:36 184 mg/dL F 70.0-99.0 Protein [Mass/volume] in Serum or Plasma 2023-08-26 18:51:36 183 mg/dL F 0.0-149.0 Cholesterol [Mass/volume] in Serum or Plasma 2023-08-26 18:51:36 126 mg/dL F 0.0-199.0 Lactate dehydrogenase [Enzymatic activity/volume] in Serum or Plasma 2023-08-26 18:51:36 255 U/L F 120.0-246.0 Bicarbonate [Moles/volume] in Serum or Plasma 2023-08-26 18:51:36 24 mEq/L F 20.0-31.0 Albumin [Mass/volume] in Serum or Plasma by Bromocresol green (BCG) dye binding method 2023-08-26 18:51:36 3.6 g/dL F 3.4-4.8 Cholesterol in HDL [Mass/volume] in Serum or Plasma 2023-08-26 18:51:36 41 mg/dL F 40.0-60.0 Protein [Mass/volume] in Serum or Plasma 2023-08-26 18:51:36 5.6 g/dL F 5.7-8.2 Glucose [Mass/volume] in Serum or Plasma 2023-08-26 18:51:36 184 mg/dL F 70.0-99.0 Protein [Mass/volume] in Serum or Plasma 2023-08-26 18:51:36 183 mg/dL F 0.0-149.0 Cholesterol [Mass/volume] in Serum or Plasma 2023-08-26 18:51:36 126 mg/dL F 0.0-199.0 Lactate dehydrogenase [Enzymatic activity/volume] in Serum or Plasma 2023-08-26 18:51:36 255 U/L F 120.0-246.0 Bicarbonate [Moles/volume] in Serum or Plasma 2023-08-26 18:51:36 24 mEq/L F 20.0-31.0 Albumin [Mass/volume] in Serum or Plasma by Bromocresol green (BCG) dye binding method 2023-08-26 18:51:36 3.6 g/dL F 3.4-4.8 Cholesterol in HDL [Mass/volume] in Serum or Plasma 2023-08-26 18:51:36 41 mg/dL F 40.0-60.0 Protein [Mass/volume] in Serum or Plasma 2023-08-26 18:51:36 5.6 g/dL F 5.7-8.2 Glucose [Mass/volume] in Serum or Plasma 2023-08-26 18:51:36 184 mg/dL F 70.0-99.0 Potassium [Moles/volume] in Serum or Plasma 2023-07-25 06:41:05 5.1 mEq/L F 3.5-5.5 Potassium [Moles/volume] in Serum or Plasma 2023-07-25 06:41:05 5.1 mEq/L F 3.5-5.5 GLOBULIN 2023-07-24 17:40:31 1.9 g/dL F 0.9-5.0 A/G RATIO 2023-07-24 17:40:31 1.9 Calc F 1.0-2.5 A/G RATIO 2023-07-24 17:40:31 1.9 Calc F 1.0-2.5 GLOBULIN 2023-07-24 17:40:31 1.9 g/dL F 0.9-5.0 Lactate dehydrogenase [Enzymatic activity/volume] in Serum or Plasma 2023-07-24 17:39:41 223 U/L F 120.0-246.0 Bicarbonate [Moles/volume] in Serum or Plasma 2023-07-24 17:39:41 23 mEq/L F 20.0-31.0 Albumin [Mass/volume] in Serum or Plasma by Bromocresol green (BCG) dye binding method 2023-07-24 17:39:41 3.6 g/dL F 3.4-4.8 Protein [Mass/volume] in Serum or Plasma 2023-07-24 17:39:41 5.5 g/dL F 5.7-8.2 Glucose [Mass/volume] in Serum or Plasma 2023-07-24 17:39:41 187 mg/dL F 70.0-99.0 Lactate dehydrogenase [Enzymatic activity/volume] in Serum or Plasma 2023-07-24 17:39:41 223 U/L F 120.0-246.0 Bicarbonate [Moles/volume] in Serum or Plasma 2023-07-24 17:39:41 23 mEq/L F 20.0-31.0 Albumin [Mass/volume] in Serum or Plasma by Bromocresol green (BCG) dye binding method 2023-07-24 17:39:41 3.6 g/dL F 3.4-4.8 Protein [Mass/volume] in Serum or Plasma 2023-07-24 17:39:41 5.5 g/dL F 5.7-8.2 Glucose [Mass/volume] in Serum or Plasma 2023-07-24 17:39:41 187 mg/dL F 70.0-99.0 Potassium [Moles/volume] in Serum or Plasma 2023-06-29 [...] RATIO 2023-06-28 15:39:26 1.9 Calc F 1.0-2.5 Lactate dehydrogenase [Enzymatic activity/volume] in Serum or Plasma 2023-06-28 15:38:38 225 U/L F 120.0-246.0 Bicarbonate [Moles/volume] in Serum or Plasma 2023-06-28 15:38:38 28 mEq/L F 20.0-31.0 Albumin [Mass/volume] in Serum or Plasma by Bromocresol green (BCG) dye binding method 2023-06-28 15:38:38 3.4 g/dL F 3.4-4.8 Protein [Mass/volume] in Serum or Plasma 2023-06-28 15:38:38 5.2 g/dL F 5.7-8.2 Glucose [Mass/volume] in Serum or Plasma 2023-06-28 15:38:38 175 mg/dL F 70.0-99.0 Bicarbonate [Moles/volume] in Serum or Plasma 2023-06-28 15:38:38 28 mEq/L F 20.0-31.0 Protein [Mass/volume] in Serum or Plasma 2023-06-28 15:38:38 5.2 g/dL F 5.7-8.2 Lactate dehydrogenase [Enzymatic activity/volume] in Serum or Plasma 2023-06-28 15:38:38 225 U/L F 120.0-246.0 Albumin [Mass/volume] in Serum or Plasma by Bromocresol green (BCG) dye binding method 2023-06-28 15:38:38 3.4 g/dL F 3.4-4.8 Glucose [Mass/volume] in Serum or Plasma 2023-06-28 15:38:38 175 mg/dL F 70.0-99.0 Lactate dehydrogenase [Enzymatic activity/volume] in Serum or Plasma 2023-06-28 15:38:38 225 U/L F 120.0-246.0 Bicarbonate [Moles/volume] in Serum or Plasma 2023-06-28 15:38:38 28 mEq/L F 20.0-31.0 Albumin [Mass/volume] in Serum or Plasma by Bromocresol green (BCG) dye binding method 2023-06-28 15:38:38 3.4 g/dL F 3.4-4.8 Protein [Mass/volume] in Serum or Plasma 2023-06-28 15:38:38 5.2 g/dL F 5.7-8.2 Glucose [Mass/volume] in Serum or Plasma 2023-06-28 15:38:38 175 mg/dL F 70.0-99.0 Potassium [Moles/volume] in Serum or Plasma 2023-05-24 [...] GLOBULIN 2023-05-24 01:22:42 1.9 g/dL F 0.9-5.0 Lactate dehydrogenase [Enzymatic activity/volume] in Serum or Plasma 2023-05-24 01:21:33 214 U/L F 120.0-246.0 Bicarbonate [Moles/volume] in Serum or Plasma 2023-05-24 01:21:33 26 mEq/L F 20.0-31.0 Albumin [Mass/volume] in Serum or Plasma by Bromocresol green (BCG) dye binding method 2023-05-24 01:21:33 3.8 g/dL F 3.4-4.8 Protein [Mass/volume] in Serum or Plasma 2023-05-24 01:21:33 5.7 g/dL F 5.7-8.2 Glucose [Mass/volume] in Serum or Plasma 2023-05-24 01:21:33 216 mg/dL F 70.0-99.0 Protein [Mass/volume] in Serum or Plasma 2023-05-24 01:21:33 5.7 g/dL F 5.7-8.2 Lactate dehydrogenase [Enzymatic activity/volume] in Serum or Plasma 2023-05-24 01:21:33 214 U/L F 120.0-246.0 Bicarbonate [Moles/volume] in Serum or Plasma 2023-05-24 01:21:33 26 mEq/L F 20.0-31.0 Albumin [Mass/volume] in Serum or Plasma by Bromocresol green (BCG) dye binding method 2023-05-24 01:21:33 3.8 g/dL F 3.4-4.8 Glucose [Mass/volume] in Serum or Plasma 2023-05-24 01:21:33 216 mg/dL F 70.0-99.0 Lactate dehydrogenase [Enzymatic activity/volume] in Serum or Plasma 2023-05-24 01:21:33 214 U/L F 120.0-246.0 Bicarbonate [Moles/volume] in Serum or Plasma 2023-05-24 01:21:33 26 mEq/L F 20.0-31.0 Albumin [Mass/volume] in Serum or Plasma by Bromocresol green (BCG) dye binding method 2023-05-24 01:21:33 3.8 g/dL F 3.4-4.8 Protein [Mass/volume] in Serum or Plasma 2023-05-24 01:21:33 5.7 g/dL F 5.7-8.2 Glucose [Mass/volume] in Serum or Plasma 2023-05-24 01:21:33 216 mg/dL F 70.0-99.0 Cobalamin (Vitamin B12) [Mass/volume] in Serum or Plasma 2023-04-25 08:17:26 412 pg/mL F 211.0-911.0 Folate [Mass/volume] in Serum or Plasma 2023-04-25 08:17:26 22.2 ng/mL F 5.5-16.0 Cobalamin (Vitamin B12) [Mass/volume] in Serum or Plasma 2023-04-25 08:17:26 412 pg/mL F 211.0-911.0 Folate [Mass/volume] in Serum or Plasma 2023-04-25 08:17:26 22.2 ng/mL F 5.5-16.0 Potassium [Moles/volume] in Serum or Plasma 2023-04-25 08:14:24 3.5 mEq/L F 3.5-5.5 Potassium [Moles/volume] in Serum or Plasma 2023-04-25 08:14:24 3.5 mEq/L F 3.5-5.5 GLOBULIN 2023-04-24 18:08:00 2 g/dL F 0.9-5.0 A/G RATIO 2023-04-24 18:08:00 1.7 Calc F 1.0-2.5 A/G RATIO 2023-04-24 18:08:00 1.7 Calc F 1.0-2.5 GLOBULIN 2023-04-24 18:08:00 2 g/dL F 0.9-5.0 Lactate dehydrogenase [Enzymatic activity/volume] in Serum or Plasma 2023-04-24 18:06:58 209 U/L F 120.0-246.0 Bicarbonate [Moles/volume] in Serum or Plasma 2023-04-24 18:06:58 25 mEq/L F 20.0-31.0 Albumin [Mass/volume] in Serum or Plasma by Bromocresol green (BCG) dye binding method 2023-04-24 18:06:58 3.4 g/dL F 3.4-4.8 Protein [Mass/volume] in Serum or Plasma 2023-04-24 18:06:58 5.4 g/dL F 5.7-8.2 Glucose [Mass/volume] in Serum or Plasma 2023-04-24 18:06:58 198 mg/dL F 70.0-99.0 Lactate dehydrogenase [Enzymatic activity/volume] in Serum or Plasma 2023-04-24 18:06:58 209 U/L F 120.0-246.0 Bicarbonate [Moles/volume] in Serum or Plasma 2023-04-24 18:06:58 25 mEq/L F 20.0-31.0 Albumin [Mass/volume] in Serum or Plasma by Bromocresol green (BCG) dye binding method 2023-04-24 18:06:58 3.4 g/dL F 3.4-4.8 Protein [Mass/volume] in Serum or Plasma 2023-04-24 18:06:58 5.4 g/dL F 5.7-8.2 Glucose [Mass/volume] in Serum or Plasma 2023-04-24 18:06:58 198 mg/dL F 70.0-99.0 Potassium [Moles/volume] in Serum or Plasma 2023-04-03 22:25:13 3.1 mEq/L F 3.5-5.5 GLOBULIN 2023-04-03 16:22:32 1.9 g/dL F 0.9-5.0 A/G RATIO 2023-04-03 16:22:32 1.8 Calc F 1.0-2.5 Lactate dehydrogenase [Enzymatic activity/volume] in Serum or Plasma 2023-04-03 16:22:19 198 U/L F 120.0-246.0 Bicarbonate [Moles/volume] in Serum or Plasma 2023-04-03 16:22:19 27 mEq/L F 20.0-31.0 Albumin [Mass/volume] in Serum or Plasma by Bromocresol green (BCG) dye binding method 2023-04-03 16:22:19 3.4 g/dL F 3.4-4.8 Protein [Mass/volume] in Serum or Plasma 2023-04-03 16:22:19 5.3 g/dL F 5.7-8.2 Glucose [Mass/volume] in Serum or Plasma 2023-04-03 16:22:19 161 mg/dL F 70.0-99.0 Potassium [Moles/volume] in Serum or Plasma 2023-02-27 08:20:25 3.7 mEq/L F 3.5-5.5 Potassium [Moles/volume] in Serum or Plasma 2023-02-27 08:20:25 3.7 mEq/L F 3.5-5.5 Potassium [Moles/volume] in Serum or Plasma 2023-02-27 08:20:25 3.7 mEq/L F 3.5-5.5 VLDL-CHOL(CALC) 2023-02-26 19:29:51 63 mg/dL F 0.0-29.0 LDL-CHOLESTEROL 2023-02-26 19:29:51 57 mg/dL F 0.0-99.0 GLOBULIN 2023-02-26 19:29:51 2.4 g/dL F 0.9-5.0 A/G RATIO 2023-02-26 19:29:51 1.7 Calc F 1.0-2.5 CHOL/HDL RATIO 2023-02-26 19:29:51 4.5 Calc F 3.3-5.0 GLOBULIN 2023-02-26 19:29:51 2.4 g/dL F 0.9-5.0 A/G RATIO 2023-02-26 19:29:51 1.7 Calc F 1.0-2.5 VLDL-CHOL(CALC) 2023-02-26 19:29:51 63 mg/dL F 0.0-29.0 LDL-CHOLESTEROL 2023-02-26 19:29:51 57 mg/dL F 0.0-99.0 CHOL/HDL RATIO 2023-02-26 19:29:51 4.5 Calc F 3.3-5.0 VLDL-CHOL(CALC) 2023-02-26 19:29:51 63 mg/dL F 0.0-29.0 LDL-CHOLESTEROL 2023-02-26 19:29:51 57 mg/dL F 0.0-99.0 GLOBULIN 2023-02-26 19:29:51 2.4 g/dL F 0.9-5.0 A/G RATIO 2023-02-26 19:29:51 1.7 Calc F 1.0-2.5 CHOL/HDL RATIO 2023-02-26 19:29:51 4.5 Calc F 3.3-5.0 Protein [Mass/volume] in Serum or Plasma 2023-02-26 19:29:35 313 mg/dL F 0.0-149.0 Cholesterol [Mass/volume] in Serum or Plasma 2023-02-26 19:29:35 154 mg/dL F 0.0-199.0 Lactate dehydrogenase [Enzymatic activity/volume] in Serum or Plasma 2023-02-26 19:29:35 239 U/L F 120.0-246.0 Bicarbonate [Moles/volume] in Serum or Plasma 2023-02-26 19:29:35 27 mEq/L F 20.0-31.0 Albumin [Mass/volume] in Serum or Plasma by Bromocresol green (BCG) dye binding method 2023-02-26 19:29:35 4.1 g/dL F 3.4-4.8 Cholesterol in HDL [Mass/volume] in Serum or Plasma 2023-02-26 19:29:35 34 mg/dL F 40.0-60.0 Protein [Mass/volume] in Serum or Plasma 2023-02-26 19:29:35 6.5 g/dL F 5.7-8.2 Glucose [Mass/volume] in Serum or Plasma 2023-02-26 19:29:35 178 mg/dL F 70.0-99.0 Cholesterol [Mass/volume] in Serum or Plasma 2023-02-26 19:29:35 154 mg/dL F 0.0-199.0 Albumin [Mass/volume] in Serum or Plasma by Bromocresol green (BCG) dye binding method 2023-02-26 19:29:35 4.1 g/dL F 3.4-4.8 Protein [Mass/volume] in Serum or Plasma 2023-02-26 19:29:35 6.5 g/dL F 5.7-8.2 Glucose [Mass/volume] in Serum or Plasma 2023-02-26 19:29:35 178 mg/dL F 70.0-99.0 Protein [Mass/volume] in Serum or Plasma 2023-02-26 19:29:35 313 mg/dL F 0.0-149.0 Lactate dehydrogenase [Enzymatic activity/volume] in Serum or Plasma 2023-02-26 19:29:35 239 U/L F 120.0-246.0 Bicarbonate [Moles/volume] in Serum or Plasma 2023-02-26 19:29:35 27 mEq/L F 20.0-31.0 Cholesterol in HDL [Mass/volume] in Serum or Plasma 2023-02-26 19:29:35 34 mg/dL F 40.0-60.0 Protein [Mass/volume] in Serum or Plasma 2023-02-26 19:29:35 313 mg/dL F 0.0-149.0 Cholesterol [Mass/volume] in Serum or Plasma 2023-02-26 19:29:35 154 mg/dL F 0.0-199.0 Lactate dehydrogenase [Enzymatic activity/volume] in Serum or Plasma 2023-02-26 19:29:35 239 U/L F 120.0-246.0 Bicarbonate [Moles/volume] in Serum or Plasma 2023-02-26 19:29:35 27 mEq/L F 20.0-31.0 Albumin [Mass/volume] in Serum or Plasma by Bromocresol green (BCG) dye binding method 2023-02-26 19:29:35 4.1 g/dL F 3.4-4.8 Cholesterol in HDL [Mass/volume] in Serum or Plasma 2023-02-26 19:29:35 34 mg/dL F 40.0-60.0 Protein [Mass/volume] in Serum or Plasma 2023-02-26 19:29:35 6.5 g/dL F 5.7-8.2 Glucose [Mass/volume] in Serum or Plasma 2023-02-26 19:29:35 178 mg/dL F 70.0-99.0 Potassium [Moles/volume] in Serum or Plasma 2023-01-22 04:01:20 4.1 mEq/L F 3.5-5.5 Potassium [Moles/volume] in Serum or Plasma 2023-01-22 04:01:20 4.1 mEq/L F 3.5-5.5 GLOBULIN 2023-01-22 03:54:23 2.1 g/dL F 0.9-5.0 A/G RATIO 2023-01-22 03:54:23 1.9 Calc F 1.0-2.5 A/G RATIO 2023-01-22 03:54:23 1.9 Calc F 1.0-2.5 GLOBULIN 2023-01-22 03:54:23 2.1 g/dL F 0.9-5.0 Lactate dehydrogenase [Enzymatic activity/volume] in Serum or Plasma 2023-01-22 03:53:35 239 U/L F 120.0-246.0 Bicarbonate [Moles/volume] in Serum or Plasma 2023-01-22 03:53:35 27 mEq/L F 20.0-31.0 Albumin [Mass/volume] in Serum or Plasma by Bromocresol green (BCG) dye binding method 2023-01-22 03:53:35 3.9 g/dL F 3.4-4.8 Protein [Mass/volume] in Serum or Plasma 2023-01-22 03:53:35 6 g/dL F 5.7-8.2 Glucose [Mass/volume] in Serum or Plasma 2023-01-22 [...] Plasma 2023-01-22 03:53:35 6 g/dL F 5.7-8.2 Glucose [Mass/volume] in Serum or Plasma 2023-01-22 03:53:35 174 mg/dL F 70.0-99.0 A/G RATIO 2022-12-27 16:17:51 1.9 Calc F 1.0-2.5 GLOBULIN 2022-12-27 16:17:51 2 g/dL F 0.9-5.0 A/G RATIO 2022-12-27 16:17:51 1.9 Calc F 1.0-2.5 GLOBULIN 2022-12-27 16:17:51 2 g/dL F 0.9-5.0 Albumin [Mass/volume] in Serum or Plasma by Bromocresol green (BCG) dye binding method 2022-12-27 16:17:40 3.7 g/dL F 3.4-4.8 Lactate dehydrogenase [Enzymatic activity/volume] in Serum or Plasma 2022-12-27 16:17:40 209 U/L F 120.0-246.0 Bicarbonate [Moles/volume] in Serum or Plasma 2022-12-27 16:17:40 26 mEq/L F 20.0-31.0 Potassium [Moles/volume] in Serum or Plasma 2022-12-27 16:17:40 3.5 mEq/L F 3.5-5.5 Protein [Mass/volume] in Serum or Plasma 2022-12-27 16:17:40 5.7 g/dL F 5.7-8.2 Glucose [Mass/volume] in Serum or Plasma 2022-12-27 16:17:40 149 mg/dL F 70.0-99.0 Lactate dehydrogenase [Enzymatic activity/volume] in Serum or Plasma 2022-12-27 16:17:40 209 U/L F 120.0-246.0 Bicarbonate [Moles/volume] in Serum or Plasma 2022-12-27 16:17:40 26 mEq/L F 20.0-31.0 Albumin [Mass/volume] in Serum or Plasma by Bromocresol green (BCG) dye binding method 2022-12-27 16:17:40 3.7 g/dL F 3.4-4.8 Potassium [Moles/volume] in Serum or Plasma 2022-12-27 16:17:40 3.5 mEq/L F 3.5-5.5 Protein [Mass/volume] in Serum or Plasma 2022-12-27 16:17:40 5.7 g/dL F 5.7-8.2 Glucose [Mass/volume] in Serum or Plasma 2022-12-27 16:17:40 149 mg/dL F 70.0-99.0 GLOBULIN 2022-11-24 03:59:49 2 g/dL F 0.9-5.0 A/G RATIO 2022-11-24 03:59:49 1.9 Calc F 1.0-2.5 Lactate dehydrogenase [Enzymatic activity/volume] in Serum or Plasma 2022-11-24 03:59:27 234 U/L F 120.0-246.0 Bicarbonate [Moles/volume] in Serum or Plasma 2022-11-24 03:59:27 27 mEq/L F 20.0-31.0 Albumin [Mass/volume] in Serum or Plasma by Bromocresol green (BCG) dye binding method 2022-11-24 03:59:27 3.8 g/dL F 3.4-4.8 Potassium [Moles/volume] in Serum or Plasma 2022-11-24 03:59:27 4.1 mEq/L F 3.5-5.5 Protein [Mass/volume] in Serum or Plasma 2022-11-24 03:59:27 5.8 g/dL F 5.7-8.2 Glucose [Mass/volume] in Serum or Plasma 2022-11-24 03:59:27 108 mg/dL F 70.0-99.0 GLOBULIN 2022-10-30 06:50:20 2 g/dL F 0.9-5.0 A/G RATIO 2022-10-30 06:50:20 1.9 Calc F 1.0-2.5 A/G RATIO 2022-10-30 06:50:20 1.9 Calc F 1.0-2.5 GLOBULIN 2022-10-30 06:50:20 2 g/dL F 0.9-5.0 GLOBULIN 2022-10-30 06:50:20 2 g/dL F 0.9-5.0 A/G RATIO 2022-10-30 06:50:20 1.9 Calc F 1.0-2.5 Lactate dehydrogenase [Enzymatic activity/volume] in Serum or Plasma 2022-10-30 06:49:36 225 U/L F 120.0-246.0 Bicarbonate [Moles/volume] in Serum or Plasma 2022-10-30 06:49:36 28 mEq/L F 20.0-31.0 Albumin [Mass/volume] in Serum or Plasma by Bromocresol green (BCG) dye binding method 2022-10-30 06:49:36 3.8 g/dL F 3.4-4.8 Potassium [Moles/volume] in Serum or Plasma 2022-10-30 06:49:36 4.1 mEq/L F 3.5-5.5 Protein [Mass/volume] in Serum or Plasma 2022-10-30 06:49:36 5.8 g/dL F 5.7-8.2 Glucose [Mass/volume] in Serum or Plasma 2022-10-30 06:49:36 172 mg/dL F 70.0-99.0 Lactate dehydrogenase [Enzymatic activity/volume] in Serum or Plasma 2022-10-30 06:49:36 225 U/L F 120.0-246.0 Albumin [Mass/volume] in Serum or Plasma by Bromocresol green (BCG) dye binding method 2022-10-30 06:49:36 3.8 g/dL F 3.4-4.8 Glucose [Mass/volume] in Serum or Plasma 2022-10-30 06:49:36 172 mg/dL F 70.0-99.0 Bicarbonate [Moles/volume] in Serum or Plasma 2022-10-30 06:49:36 28 mEq/L F 20.0-31.0 Potassium [Moles/volume] in Serum or Plasma 2022-10-30 06:49:36 4.1 mEq/L F 3.5-5.5 Protein [Mass/volume] in Serum or Plasma 2022-10-30 06:49:36 5.8 g/dL F 5.7-8.2 Lactate dehydrogenase [Enzymatic activity/volume] in Serum or Plasma 2022-10-30 06:49:36 225 U/L F 120.0-246.0 Bicarbonate [Moles/volume] in Serum or Plasma 2022-10-30 06:49:36 28 mEq/L F 20.0-31.0 Albumin [Mass/volume] in Serum or Plasma by Bromocresol green (BCG) dye binding method 2022-10-30 06:49:36 3.8 g/dL F 3.4-4.8 Potassium [Moles/volume] in Serum or Plasma 2022-10-30 06:49:36 4.1 mEq/L F 3.5-5.5 Protein [Mass/volume] in Serum or Plasma 2022-10-30 06:49:36 5.8 g/dL F 5.7-8.2 Glucose [Mass/volume] in Serum or Plasma 2022-10-30 06:49:36 172 mg/dL F 70.0-99.0 GLOBULIN 2022-09-27 19:21:58 2.3 g/dL F 0.9-5.0 A/G RATIO 2022-09-27 19:21:58 1.7 Calc F 1.0-2.5 Lactate dehydrogenase [Enzymatic activity/volume] in Serum or Plasma 2022-09-27 19:21:36 202 U/L F 120.0-246.0 Bicarbonate [Moles/volume] in Serum or Plasma 2022-09-27 19:21:36 28 mEq/L F 20.0-31.0 Albumin [Mass/volume] in Serum or Plasma by Bromocresol green (BCG) dye binding method 2022-09-27 19:21:36 3.8 g/dL F 3.4-4.8 Potassium [Moles/volume] in Serum or Plasma 2022-09-27 19:21:36 3.9 mEq/L F 3.5-5.5 Protein [Mass/volume] in Serum or Plasma 2022-09-27 19:21:36 6.1 g/dL F 5.7-8.2 Glucose [Mass/volume] in Serum or Plasma 2022-09-27 19:21:36 219 mg/dL F 70.0-99.0 VLDL-CHOL(CALC) 2022-08-28 04:36:23 see comments F 0.0-29.0 Unable to Calculate.Unable to report when Triglycerides >400 LDL-CHOLESTEROL 2022-08-28 04:36:23 see comments F 0.0-99.0 Unable to Calculate.Unable to report when Triglycerides >400 GLOBULIN 2022-08-28 04:36:23 2.2 g/dL F 0.9-5.0 A/G RATIO 2022-08-28 04:36:23 1.8 Calc F 1.0-2.5 CHOL/HDL RATIO 2022-08-28 04:36:23 6.7 Calc F 3.3-5.0 VLDL-CHOL(CALC) 2022-08-28 04:36:23 see comments F 0.0-29.0 Unable to Calculate.Unable to report when Triglycerides >400 LDL-CHOLESTEROL 2022-08-28 04:36:23 see comments F 0.0-99.0 Unable to Calculate.Unable to report when Triglycerides >400 GLOBULIN 2022-08-28 04:36:23 2.2 g/dL F 0.9-5.0 [...] RATIO 2022-08-28 04:36:23 6.7 Calc F 3.3-5.0 Protein [Mass/volume] in Serum or Plasma 2022-08-28 04:35:20 554 mg/dL F 0.0-149.0 Cholesterol [Mass/volume] in Serum or Plasma 2022-08-28 04:35:20 187 mg/dL F 0.0-199.0 Lactate dehydrogenase [Enzymatic activity/volume] in Serum or Plasma 2022-08-28 04:35:20 238 U/L F 120.0-246.0 Bicarbonate [Moles/volume] in Serum or Plasma 2022-08-28 04:35:20 29 mEq/L F 20.0-31.0 Albumin [Mass/volume] in Serum or Plasma by Bromocresol green (BCG) dye binding method 2022-08-28 04:35:20 4 g/dL F 3.4-4.8 Potassium [Moles/volume] in Serum or Plasma 2022-08-28 04:35:20 3.1 mEq/L F 3.5-5.5 Cholesterol in HDL [Mass/volume] in Serum or Plasma 2022-08-28 04:35:20 28 mg/dL F 40.0-60.0 Protein [Mass/volume] in Serum or Plasma 2022-08-28 04:35:20 6.2 g/dL F 5.7-8.2 Glucose [Mass/volume] in Serum or Plasma 2022-08-28 04:35:20 77 mg/dL F 70.0-99.0 Cholesterol [Mass/volume] in Serum or Plasma 2022-08-28 04:35:20 187 mg/dL F 0.0-199.0 Potassium [Moles/volume] in Serum or Plasma 2022-08-28 04:35:20 3.1 mEq/L F 3.5-5.5 Bicarbonate [Moles/volume] in Serum or Plasma 2022-08-28 04:35:20 29 mEq/L F 20.0-31.0 Cholesterol in HDL [Mass/volume] in Serum or Plasma 2022-08-28 04:35:20 28 mg/dL F 40.0-60.0 Protein [Mass/volume] in Serum or Plasma 2022-08-28 04:35:20 554 mg/dL F 0.0-149.0 Lactate dehydrogenase [Enzymatic activity/volume] in Serum or Plasma 2022-08-28 04:35:20 238 U/L F 120.0-246.0 Albumin [Mass/volume] in Serum or Plasma by Bromocresol green (BCG) dye binding method 2022-08-28 04:35:20 4 g/dL F 3.4-4.8 Protein [Mass/volume] in Serum or Plasma 2022-08-28 04:35:20 6.2 g/dL F 5.7-8.2 Glucose [Mass/volume] in Serum or Plasma 2022-08-28 04:35:20 77 mg/dL F 70.0-99.0 Cholesterol [Mass/volume] in Serum or Plasma 2022-08-28 04:35:20 187 mg/dL F 0.0-199.0 Protein [Mass/volume] in Serum or Plasma 2022-08-28 04:35:20 554 mg/dL F 0.0-149.0 Lactate dehydrogenase [Enzymatic activity/volume] in Serum or Plasma 2022-08-28 04:35:20 238 U/L F 120.0-246.0 Bicarbonate [Moles/volume] in Serum or Plasma 2022-08-28 04:35:20 29 mEq/L F 20.0-31.0 Potassium [Moles/volume] in Serum or Plasma 2022-08-28 04:35:20 3.1 mEq/L F 3.5-5.5 Albumin [Mass/volume] in Serum or Plasma by Bromocresol green (BCG) dye binding method 2022-08-28 04:35:20 4 g/dL F 3.4-4.8 Cholesterol in HDL [Mass/volume] in Serum or Plasma 2022-08-28 04:35:20 28 mg/dL F 40.0-60.0 Protein [Mass/volume] in Serum or Plasma 2022-08-28 04:35:20 6.2 g/dL F 5.7-8.2 Glucose [Mass/volume] in Serum or Plasma 2022-08-28 04:35:20 77 mg/dL F 70.0-99.0 GLOBULIN 2022-07-24 20:39:37 2.1 g/dL F 0.9-5.0 A/G RATIO 2022-07-24 20:39:37 1.7 Calc F 1.0-2.5 Potassium [Moles/volume] in Serum or Plasma 2022-07-24 20:39:24 3.5 mEq/L F 3.5-5.5 Lactate dehydrogenase [Enzymatic activity/volume] in Serum or Plasma 2022-07-24 20:39:22 218 U/L F 120.0-246.0 Bicarbonate [Moles/volume] in Serum or Plasma 2022-07-24 20:39:22 31 mEq/L F 20.0-31.0 Albumin [Mass/volume] in Serum or Plasma by Bromocresol green (BCG) dye binding method 2022-07-24 20:39:22 3.6 g/dL F 3.4-4.8 Protein [Mass/volume] in Serum or Plasma 2022-07-24 20:39:22 5.7 g/dL F 5.7-8.2 Glucose [Mass/volume] in Serum or Plasma 2022-07-24 20:39:22 144 mg/dL F 70.0-99.0 GLOBULIN 2022-06-22 17:30:23 2.2 g/dL F 0.9-5.0 A/G RATIO 2022-06-22 17:30:23 1.7 Calc F 1.0-2.5 GLOBULIN 2022-06-22 17:30:23 2.2 g/dL F 0.9-5.0 A/G RATIO 2022-06-22 17:30:23 1.7 Calc F 1.0-2.5 Lactate dehydrogenase [Enzymatic activity/volume] in Serum or Plasma 2022-06-22 17:30:12 212 U/L F 120.0-246.0 Bicarbonate [Moles/volume] in Serum or Plasma 2022-06-22 17:30:12 33 mEq/L F 20.0-31.0 Albumin [Mass/volume] in Serum or Plasma by Bromocresol green (BCG) dye binding method 2022-06-22 17:30:12 3.8 g/dL F 3.4-4.8 Potassium [Moles/volume] in Serum or Plasma 2022-06-22 17:30:12 3.2 mEq/L F 3.5-5.5 Protein [Mass/volume] in Serum or Plasma 2022-06-22 17:30:12 6 g/dL F 5.7-8.2 Glucose [Mass/volume] in Serum or Plasma 2022-06-22 17:30:12 200 mg/dL F 70.0-99.0 Lactate dehydrogenase [Enzymatic activity/volume] in Serum or Plasma 2022-06-22 17:30:12 212 U/L F 120.0-246.0 Bicarbonate [Moles/volume] in Serum or Plasma 2022-06-22 17:30:12 33 mEq/L F 20.0-31.0 Albumin [Mass/volume] in Serum or Plasma by Bromocresol green (BCG) dye binding method 2022-06-22 17:30:12 3.8 g/dL F 3.4-4.8 Potassium [Moles/volume] in Serum or Plasma 2022-06-22 17:30:12 3.2 mEq/L F 3.5-5.5 Protein [Mass/volume] in Serum or Plasma 2022-06-22 17:30:12 6 g/dL F 5.7-8.2 Glucose [Mass/volume] in Serum or Plasma 2022-06-22 17:30:12 200 mg/dL F 70.0-99.0 A/G RATIO 2022-05-25 23:33:37 1.8 Calc F 1.0-2.5 GLOBULIN 2022-05-25 23:33:37 2.1 g/dL F 0.9-5.0 GLOBULIN 2022-05-25 23:33:37 2.1 g/dL F 0.9-5.0 A/G RATIO 2022-05-25 23:33:37 1.8 Calc F 1.0-2.5 GLOBULIN 2022-05-25 23:33:37 2.1 g/dL F 0.9-5.0 A/G RATIO 2022-05-25 23:33:37 1.8 Calc F 1.0-2.5 GLOBULIN 2022-05-25 23:33:37 2.1 g/dL F 0.9-5.0 A/G RATIO 2022-05-25 23:33:37 1.8 Calc F 1.0-2.5 Lactate dehydrogenase [Enzymatic activity/volume] in Serum or Plasma 2022-05-25 23:33:20 224 U/L F 120.0-246.0 Bicarbonate [Moles/volume] in Serum or Plasma 2022-05-25 23:33:20 33 mEq/L F 20.0-31.0 Albumin [Mass/volume] in Serum or Plasma by Bromocresol green (BCG) dye binding method 2022-05-25 23:33:20 3.8 g/dL F 3.4-4.8 Potassium [Moles/volume] in Serum or Plasma 2022-05-25 23:33:20 3 mEq/L F 3.5-5.5 Protein [Mass/volume] in Serum or Plasma 2022-05-25 23:33:20 5.9 g/dL F 5.7-8.2 Glucose [Mass/volume] in Serum or Plasma 2022-05-25 23:33:20 233 mg/dL F 70.0-99.0 Lactate dehydrogenase [Enzymatic activity/volume] in Serum or Plasma 2022-05-25 23:33:20 224 U/L F 120.0-246.0 Bicarbonate [Moles/volume] in Serum or Plasma 2022-05-25 23:33:20 33 mEq/L F 20.0-31.0 Albumin [Mass/volume] in Serum or Plasma by Bromocresol green (BCG) dye binding method 2022-05-25 23:33:20 3.8 g/dL F 3.4-4.8 Potassium [Moles/volume] in Serum or Plasma 2022-05-25 23:33:20 3 mEq/L F 3.5-5.5 Protein [Mass/volume] in Serum or Plasma 2022-05-25 23:33:20 5.9 g/dL F 5.7-8.2 Glucose [Mass/volume] in Serum or Plasma 2022-05-25 23:33:20 233 mg/dL F 70.0-99.0 Lactate dehydrogenase [Enzymatic activity/volume] in Serum or Plasma 2022-05-25 23:33:20 224 U/L F 120.0-246.0 Bicarbonate [Moles/volume] in Serum or Plasma 2022-05-25 23:33:20 33 mEq/L F 20.0-31.0 Albumin [Mass/volume] in Serum or Plasma by Bromocresol green (BCG) dye binding method 2022-05-25 23:33:20 3.8 g/dL F 3.4-4.8 Potassium [Moles/volume] in Serum or Plasma 2022-05-25 23:33:20 3 mEq/L F 3.5-5.5 Protein [Mass/volume] in Serum or Plasma 2022-05-25 23:33:20 5.9 g/dL F 5.7-8.2 Glucose [Mass/volume] in Serum or Plasma 2022-05-25 23:33:20 233 mg/dL F 70.0-99.0 Lactate dehydrogenase [Enzymatic activity/volume] in Serum or Plasma 2022-05-25 23:33:20 224 U/L F 120.0-246.0 Bicarbonate [Moles/volume] in Serum or Plasma 2022-05-25 23:33:20 33 mEq/L F 20.0-31.0 Albumin [Mass/volume] in Serum or Plasma by Bromocresol green (BCG) dye binding method 2022-05-25 23:33:20 3.8 g/dL F 3.4-4.8 Potassium [Moles/volume] in Serum or Plasma 2022-05-25 23:33:20 3 mEq/L F 3.5-5.5 Protein [Mass/volume] in Serum or Plasma 2022-05-25 23:33:20 5.9 g/dL F 5.7-8.2 Glucose [Mass/volume] in Serum or Plasma 2022-05-25 23:33:20 233 mg/dL F 70.0-99.0 GLOBULIN 2022-04-24 21:50:59 2.2 g/dL F 0.9-5.0 A/G RATIO 2022-04-24 21:50:59 1.8 Calc F 1.0-2.5 GLOBULIN 2022-04-24 21:50:59 2.2 g/dL F 0.9-5.0 A/G RATIO 2022-04-24 21:50:59 1.8 Calc F 1.0-2.5 Lactate dehydrogenase [Enzymatic activity/volume] in Serum or Plasma 2022-04-24 21:50:18 211 U/L F 120.0-246.0 Bicarbonate [Moles/volume] in Serum or Plasma 2022-04-24 21:50:18 29 mEq/L F 20.0-31.0 Potassium [Moles/volume] in Serum or Plasma 2022-04-24 21:50:18 3.3 mEq/L F 3.5-5.5 Albumin [Mass/volume] in Serum or Plasma by Bromocresol green (BCG) dye binding method 2022-04-24 21:50:18 4 g/dL F 3.4-4.8 Protein [Mass/volume] in Serum or Plasma 2022-04-24 21:50:18 6.2 g/dL F 5.7-8.2 Glucose [Mass/volume] in Serum or Plasma 2022-04-24 21:50:18 277 mg/dL F 70.0-99.0 Lactate dehydrogenase [Enzymatic activity/volume] in Serum or Plasma 2022-04-24 21:50:18 211 U/L F 120.0-246.0 Bicarbonate [Moles/volume] in Serum or Plasma 2022-04-24 21:50:18 29 mEq/L F 20.0-31.0 Albumin [Mass/volume] in Serum or Plasma by Bromocresol green (BCG) dye binding method 2022-04-24 21:50:18 4 g/dL F 3.4-4.8 Potassium [Moles/volume] in Serum or Plasma 2022-04-24 21:50:18 3.3 mEq/L F 3.5-5.5 Protein [Mass/volume] in Serum or Plasma 2022-04-24 21:50:18 6.2 g/dL F 5.7-8.2 Glucose [Mass/volume] in Serum or Plasma 2022-04-24 21:50:18 277 mg/dL F 70.0-99.0 GLOBULIN 2022-04-03 04:22:39 2.1 g/dL F 0.9-5.0 A/G RATIO 2022-04-03 04:22:39 1.8 Calc F 1.0-2.5 Lactate dehydrogenase [Enzymatic activity/volume] in Serum or Plasma 2022-04-02 16:28:53 208 U/L F 120.0-246.0 Bicarbonate [Moles/volume] in Serum or Plasma 2022-04-02 16:28:53 30 mEq/L F 20.0-31.0 Albumin [Mass/volume] in Serum or Plasma by Bromocresol green (BCG) dye binding method 2022-04-02 16:28:53 3.8 g/dL F 3.4-4.8 Potassium [Moles/volume] in Serum or Plasma 2022-04-02 16:28:53 3.6 mEq/L F 3.5-5.5 Protein [Mass/volume] in Serum or Plasma 2022-04-02 16:28:53 5.9 g/dL F 5.7-8.2 Glucose [Mass/volume] in Serum or Plasma 2022-04-02 16:28:53 324 mg/dL F 70.0-99.0 VLDL-CHOL(CALC) 2022-02-21 01:20:58 see comments F 0.0-29.0 Unable to Calculate.Unable to report when Triglycerides >400 LDL-CHOLESTEROL 2022-02-21 01:20:58 see comments F 0.0-99.0 Unable to Calculate.Unable to report when Triglycerides >400 GLOBULIN 2022-02-21 01:20:58 2.3 g/dL F 0.9-5.0 A/G RATIO 2022-02-21 01:20:58 1.7 Calc F 1.0-2.5 CHOL/HDL RATIO 2022-02-21 01:20:58 9.3 Calc F 3.3-5.0 LDL-CHOLESTEROL 2022-02-21 01:20:58 see comments F 0.0-99.0 Unable to Calculate.Unable to report when Triglycerides >400 CHOL/HDL RATIO 2022-02-21 01:20:58 9.3 Calc F 3.3-5.0 VLDL-CHOL(CALC) 2022-02-21 01:20:58 see comments F 0.0-29.0 Unable to Calculate.Unable to report when Triglycerides >400 GLOBULIN 2022-02-21 01:20:58 2.3 g/dL F 0.9-5.0 A/G RATIO 2022-02-21 01:20:58 1.7 Calc F 1.0-2.5 VLDL-CHOL(CALC) 2022-02-21 01:20:58 see comments F 0.0-29.0 Unable to Calculate.Unable to report when Triglycerides >400 LDL-CHOLESTEROL 2022-02-21 01:20:58 see comments F 0.0-99.0 Unable to Calculate.Unable to report when Triglycerides >400 GLOBULIN 2022-02-21 01:20:58 2.3 g/dL F 0.9-5.0 A/G RATIO 2022-02-21 01:20:58 1.7 Calc F 1.0-2.5 CHOL/HDL RATIO 2022-02-21 01:20:58 9.3 Calc F 3.3-5.0 Protein [Mass/volume] in Serum or Plasma 2022-02-21 01:19:54 582 mg/dL F 0.0-149.0 Cholesterol [Mass/volume] in Serum or Plasma 2022-02-21 01:19:54 149 mg/dL F 0.0-199.0 Lactate dehydrogenase [Enzymatic activity/volume] in Serum or Plasma 2022-02-21 01:19:54 226 U/L F 120.0-246.0 Bicarbonate [Moles/volume] in Serum or Plasma 2022-02-21 01:19:54 29 mEq/L F 20.0-31.0 Albumin [Mass/volume] in Serum or Plasma by Bromocresol green (BCG) dye binding method 2022-02-21 01:19:54 4 g/dL F 3.4-4.8 Potassium [Moles/volume] in Serum or Plasma 2022-02-21 01:19:54 3.5 mEq/L F 3.5-5.5 Cholesterol in HDL [Mass/volume] in Serum or Plasma 2022-02-21 01:19:54 16 mg/dL F 40.0-60.0 Protein [Mass/volume] in Serum or Plasma 2022-02-21 01:19:54 6.3 g/dL F 5.7-8.2 Glucose [Mass/volume] in Serum or Plasma 2022-02-21 01:19:54 314 mg/dL F 70.0-99.0 Lactate dehydrogenase [Enzymatic activity/volume] in Serum or Plasma 2022-02-21 01:19:54 226 U/L F 120.0-246.0 Bicarbonate [Moles/volume] in Serum or Plasma 2022-02-21 01:19:54 29 mEq/L F 20.0-31.0 Potassium [Moles/volume] in Serum or Plasma 2022-02-21 01:19:54 3.5 mEq/L F 3.5-5.5 Albumin [Mass/volume] in Serum or Plasma by Bromocresol green (BCG) dye binding method 2022-02-21 01:19:54 4 g/dL F 3.4-4.8 Glucose [Mass/volume] in Serum or Plasma 2022-02-21 01:19:54 314 mg/dL F 70.0-99.0 Protein [Mass/volume] in Serum or Plasma 2022-02-21 01:19:54 582 mg/dL F 0.0-149.0 Cholesterol [Mass/volume] in Serum or Plasma 2022-02-21 01:19:54 149 mg/dL F 0.0-199.0 Cholesterol in HDL [Mass/volume] in Serum or Plasma 2022-02-21 01:19:54 16 mg/dL F 40.0-60.0 Protein [Mass/volume] in Serum or Plasma 2022-02-21 01:19:54 6.3 g/dL F 5.7-8.2 Protein [Mass/volume] in Serum or Plasma 2022-02-21 01:19:54 582 mg/dL F 0.0-149.0 Cholesterol [Mass/volume] in Serum or Plasma 2022-02-21 01:19:54 149 mg/dL F 0.0-199.0 Lactate dehydrogenase [Enzymatic activity/volume] in Serum or Plasma 2022-02-21 01:19:54 226 U/L F 120.0-246.0 Bicarbonate [Moles/volume] in Serum or Plasma 2022-02-21 01:19:54 29 mEq/L F 20.0-31.0 Albumin [Mass/volume] in Serum or Plasma by Bromocresol green (BCG) dye binding method 2022-02-21 01:19:54 4 g/dL F 3.4-4.8 Potassium [Moles/volume] in Serum or Plasma 2022-02-21 01:19:54 3.5 mEq/L F 3.5-5.5 Cholesterol in HDL [Mass/volume] in Serum or Plasma 2022-02-21 01:19:54 16 mg/dL F 40.0-60.0 Protein [Mass/volume] in Serum or Plasma 2022-02-21 01:19:54 6.3 g/dL F 5.7-8.2 Glucose [Mass/volume] in Serum or Plasma 2022-02-21 01:19:54 314 mg/dL F 70.0-99.0 Albumin [Mass/volume] in Serum or Plasma by Bromocresol green (BCG) dye binding method Lactate dehydrogenase [Enzymatic activity/volume] in Serum or Plasma A/G RATIO GLOBULIN Potassium [Moles/volume] in Serum or Plasma Bicarbonate [Moles/volume] in Serum or Plasma Protein [Mass/volume] in Serum or Plasma Glucose [Mass/volume] in Serum or Plasma Potassium [Moles/volume] in Serum or Plasma Bicarbonate [Moles/volume] in Serum or Plasma A/G RATIO Lactate dehydrogenase [Enzymatic activity/volume] in Serum or Plasma Protein [Mass/volume] in Serum or Plasma Glucose [Mass/volume] in Serum or Plasma GLOBULIN Albumin [Mass/volume] in Serum or Plasma by Bromocresol green (BCG) dye binding method Protein [Mass/volume] in Serum or Plasma Bicarbonate [Moles/volume] in Serum or Plasma Potassium [Moles/volume] in Serum or Plasma Lactate dehydrogenase [Enzymatic activity/volume] in Serum or Plasma Albumin [Mass/volume] in Serum or Plasma by Bromocresol green (BCG) dye binding method GLOBULIN A/G RATIO Glucose [Mass/volume] in Serum or Plasma Albumin [Mass/volume] in Serum or Plasma by Bromocresol green (BCG) dye binding method Bicarbonate [Moles/volume] in Serum or Plasma Glucose [Mass/volume] in Serum or Plasma Lactate dehydrogenase [Enzymatic activity/volume] in Serum or Plasma Potassium [Moles/volume] in Serum or Plasma A/G RATIO Protein [Mass/volume] in Serum or Plasma GLOBULIN Protein [Mass/volume] in Serum or Plasma A/G RATIO GLOBULIN Glucose [Mass/volume] in Serum or Plasma Albumin [Mass/volume] in Serum or Plasma by Bromocresol green (BCG) dye binding method Potassium [Moles/volume] in Serum or Plasma Bicarbonate [Moles/volume] in Serum or Plasma Lactate dehydrogenase [Enzymatic activity/volume] in Serum or Plasma Encounters No encounter information to report Immunizations Ordered Immunization Name Filled Immunization Name Date Status Comments Refusal Reason TST-PPD intradermal 2024-10-27 18:30:00 TST-PPD intradermal 2023-07-23 16:15:00 TST-PPD intradermal 2022-07-23 19:15:00 Covid-19 Vaccination 2020-05-05 08:00:00 Covid-19 Vaccination 2020-04-15 08:00:00 Plan of Treatment Planned Activity Provider Planned Date Details Commen ts Diagnostic Test Pending Alan Mccall 2024-08-05 06:35:[address] [code = 2265] Diagnostic Test Pending [facility] 2024-09-10 06:32:46 Ferritin [Mass/volume] in Serum or Plasma [code = 2276-4] Diagnostic Test Pending [facility] 2024-10-11 05:00:00 Albumin [Mass/volume] in Serum or Plasma by Bromocresol green (BCG) dye binding method [code = 14243-4] Diagnostic Test Pending [facility] 2024-10-11 06:15:17 Hemoglobin [Mass/volume] in Blood [code = 718-7] Diagnostic Test Pending [facility] 2024-10-09 06:36:29 Calcium [Mass/volume] in Serum or Plasma [code = 28282-4] Diagnostic Test Pending [facility] 2023-10-25 06:45:06 Hemoglobin [Mass/volume] in Blood [code = 718-7] Diagnostic Test Pending [facility] 2022-11-17 05:00:00 Alanine aminotransferase [Enzymatic activity/volume] in Serum or Plasma [code = 1742-6] Diagnostic Test Pending [facility] 2022-02-17 06:00:00 Ferritin [Mass/volume] in Serum or Plasma [code = 2276-4] Diagnostic Test Pending [facility] 2022-02-17 06:00:00 Glucose [Mass/volume] in Serum or Plasma [code = 2345-7] Diagnostic Test Pending [facility] 2024-06-25 06:35:30 Calcium [Mass/volume] in Serum or Plasma [code = 56617-2] Diagnostic Test Pending [facility] 2022-02-17 06:00:00 Reticulocytes/100 erythrocytes in Blood by Automated count [code = 39889-6] Diagnostic Test Pending [facility] 2022-02-17 06:00:00 Parathyrin.intact [Mass/volume] in Serum or Plasma [code = 2731-8] Diagnostic Test Pending [facility] 2022-02-17 06:00:00 25-Hydroxyvitamin D3+25-Hydroxyvitamin D2 [Mass/volume] in Serum or Plasma [code = 98524-0] [facility] 06:00:00 Aluminum [Mass/volume] in Serum or Plasma [code = 5574-9] Diagnostic Test Pending [facility] (PD) 2024-10-27 19:05:20 CCPD [code = MXG923] Diagnostic Test Pending [facility] (PD) 2024-09-14 15:05:05 CCPD [code = PEQ735] Diagnostic Test Pending [facility] (PD) 2024-07-14 16:56:52 CCPD [code = RFP430] Diagnostic Test Pending [facility] (PD) 2024-05-03 18:42:57 CCPD [code = BXS132] Diet Order [facility] (PD) January 15, 2022 Diet Calorie 25 kcal/kg Fluid Value 1200 mL/d Phosphorus Value 1100 mg/d Potassium Value 2500 mg/d Protein Value 1.3 gm/kg Sodium Value 2000 mg/d Calculated Weight 87 kg
--- OUTSIDE RECORDS SUMMARY | 2024-10-30 20:42 | XMS_ITS | Encounter Summary ---
Author Organization [facility] Address [facility] [place] [address] Care Team Providers Care Esol Teacher Name Role Phone Deandre Bojorquez MD Unavailable [phone] Jeff Strickland MD Primary Care Provider Reason for Visit * Reason Onset Date Comments Pain 10/25/2024 Appointment 10/25/2024 Encounter Details Date Type Department Care Team (Late st Contact Info) Description 10/25/2024 Telephone [facility] - Vascular Surgery [address] [place] [address], [place] [id number] Elroy Holcomb MD [address] [place] [address] [place] [address] Pain; Appointment Social History Tobacco Use Types [...] Recorded Patient Health Questionnaire-2 Score 6 10/05/2024 [facility] - Occupational Stress [...] any time in the past 12 m [facility], were you homeless or living in a longterm (including now)? 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 Gender Identity Male 07/02/2021 2:37 PM [...] [facility] - Endocrinology [facility] [facility], [place] [address] Marbin Flores MD [address] [facility] DIV OF ABD [place] [address] Niraj Turner MD [address] [facility] [address] [place] [address] documented as of this encounter Visit Diagnoses Not on filedocumented in this encounter Care Teams Esol Teacher Relationship Specialty Start Date End Date Jeff Strickland MD [address] [place] [address] PCP - General 03/05/18 [place] [address] [address] Orthopedic Surgery 03/28/17 documented as of this encounter
--- OUTSIDE RECORDS SUMMARY | 2024-10-30 20:42 | XMS_ITS | Encounter Summary ---
Author Organization [facility] Address [facility] [place] [address] Care Team Providers Care Singe Winder Name Role Phone Deandre Bojorquez MD Unavailable Jeff Strickland MD Primary Care Provider [phone] Encounter Details Date Type Department Care Team (Late st Contact Info) Description 05/29/2023 Lab Requisition [facility] [address] [place] [phone] Alan Davenport MD [facility]1 [facility] [place] [address] Social History Tobacco Use Types Packs/Day Years Used Date Smoking Tobacco: Never Smokeless Tobacco: Never Alcohol Use Standard Drinks/Week Comments Not Currently 0 (1 standard drink = 0.6 oz pur e alcohol) socially in past Sex and Gender Information Value Date Recorded Sex Assigned at Male 07/02/2021 2:37 PM CDT 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 Gender Identity Male 07/02/2021 2:37 PM [...] Description 12/06/2024 10:40 AM CDT Office Visit [facility] - Endocrinology [address] [facility], [place] [address] Marbin Flores MD [address] [facility] DIV OF [place] [address] Niraj Turner MD [address] [facility] 2L [place] [address] documented as of this encounter Procedures Procedure Name Priority Date/Time Associated Diagnosis Comments HOLD HLA SPECIMEN Routine 05/21/2023 9:2 4 AM CDT documented in this encounter Results * HOLD HLA SPECIMEN (05/21/2023 9:24 AM CDT) Hold HLA Specimen 05/29/2023 10:30 AM CDT [facility] Comment:The Hold HLA specime n has been received into the lab and will be held for 5 years at 4 degrees. Blood BLOOD SPECIMEN / Unknown 05/21/2023 9:24 AM CDT 05/29/2023 9:24 AM CDT Alan Davenport MD LAB - BLOOD BANK ORDERABLES F inal Result [facility] [address] [place] [address], [facility] documented in this encounter Visit Diagnoses Not on filedocumented in this encounter Additional Health Concerns Infection Onset Date Last Indicated Resolved Time COVID-19 Under Investigation 09/13/2024 09/13/2024 09/13/2024 6:36 AM CDT documented as of this encounter Care Teams Singe Winder Relationship Specialty Start Date End Date Jeff Strickland MD [address] [place] [address] PCP - General 03/05/18 [place] [address] [place] [address] Orthopedic Surgery 03/28/17 documented as of this encounter
--- OUTSIDE RECORDS SUMMARY | 2024-10-30 20:42 | XMS_ITS | Encounter Summary ---
Author Organization [facility] Address [address] [place] [address] Care Team Providers Care Surface Hydrologist Name Role Phone Deandre Bojorquez MD Unavailable [phone] Jeff Strickland MD Primary Care Provider [phone] Encounter Details Date Type Department Care Team (Late st Contact Info) Description 02/07/2023 Lab Requisition [facility] [address] [place] [id number] Alan Davenport MD [facility]1 [facility] [place] [address] Social History Tobacco Use Types Packs/Day Years Used Date Smoking Tobacco: Never Smokeless Tobacco: Never Alcohol Use Standard Drinks/Week Comments Not Currently 0 (1 standard drink = 0.6 oz pur e alcohol) socially in past Sex and Gender Information Value Date Recorded Sex Assigned at Male 07/02/2021 2:37 PM CDT 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 Gender Identity Male 07/02/2021 2:37 PM CDT [...] Description 12/06/2024 10:40 AM CDT Office Visit [facility] - Endocrinology [address] [facility], [place] [address] Marbin Flores MD [address] [facility] DIV [place] [address] Niraj Turner MD [address] [facility] 2L [place] [address] documented as of this encounter Procedures Procedure Name Priority Date/Time Associated Diagnosis Comments HOLD HLA SPECIMEN Routine 2023 7:5 8 AM BUSINESS CENTER ATTENDANT documented in this encounter Results * HOLD HLA SPECIMEN (2023 7:58 AM BUSINESS CENTER ATTENDANT) Hold HLA Specimen 02/07/2023 9:01 AM BUSINESS CENTER ATTENDANT [facility] Comment:The Hold HLA specime n has been received into the lab and will be held for 5 years at 4 degrees. Blood BLOOD SPECIMEN / Unknown 2023 7:58 AM BUSINESS CENTER ATTENDANT 02/07/2023 7:59 AM BUSINESS CENTER ATTENDANT Alan Davenport MD LAB - BLOOD BANK ORDERABLES F inal Result [facility] [address] [place] [address], [facility] documented in this encounter Visit Diagnoses Not on filedocumented in this encounter Additional Health Concerns Infection Onset Date Last Indicated Resolved Time COVID-19 Under Investigation 09/13/2024 09/13/2024 09/13/2024 6:36 AM CDT documented as of this encounter Care Teams Surface Hydrologist Relationship Specialty Start Date End Date Jeff Strickland MD [address] [place] [address] PCP - General 03/05/18 [place] [address] [address] Orthopedic Surgery 03/28/17 documented as of this encounter
--- OUTSIDE RECORDS SUMMARY | 2024-10-30 20:42 | XMS_ITS | Clinical Summary ---
Author Organization [facility] Address [address] [place] [address] Care Team Providers Care Stars Analytical Lead Name Role Phone Jeff Strickland MD Primary [...] mouth daily. Active nystatin-triamc inolone (MYCOLOG II) 903445-4.1 UNIT/GM-% Cream 5 Active ondansetron (ZOFRAN-ODT) 4 [...] 10/29/2024 Telephone [facility] - Cardiology [facility] [address] [place] [address] Suly Smith APRN, RESIDENTIAL SALES EXECUTIVE 10/15/2024 Telephone [facility] Cardiology [facility] [address] [place] [address] Hannah Goodman MD 10/14/2024 2:40 PM CDT Clinical Support [facility] #[address] [place] [phone] [facility] Cardiology Dressing change (Primary Dx) Discharge [...] Medical Group - Cardiology - [facility] #2 [place] [place] [address] Hannah Goodman MD 2 [facility] NORY [facility] [address] [place] [address] 04/11/2025 11:30 AM VALET PARKING ATTENDANT Office Visit [facility] - Cardiology - [place] #2 [place] [address] Maylin Cutler, 2 [facility] [address] [place] [address] Health Maintenance Due Date Last Done Comments [...] topic Insurance MEDICARE C [employer]ET[employer] Care Teams Stars Analytical Lead Relationship Specialty Start Date End Date Jeff Strickland MD [address] [place] [address] PCP - General Family Medicine 10/14/24
--- OUTSIDE RECORDS SUMMARY | 2024-10-30 20:42 | XMS_ITS | Encounter Summary ---
Author Organization [facility] Address [address] [facility] [place] [address] Phone Care Team Providers Care Elementary Librarian Name Role Phone Jeff Strickland MD Primary Care Provider Encounter Details Date Type Department Care Team (Late st Contact Info) Description 10/29/2024 Telephone [facility] - Cardiology [facility] [address] [place] [address] Suly Smith APRN, FLAVIA [address] [place] [address] Social History Tobacco Use Types [...] Description 11/11/2024 11:45 AM CDT Office Visit [facility] Medical [facility] - Cardiology - [place] [address] [place] [address] Hannah Goodman MD 2 [facility] [address] [place] [address] 04/11/2025 11:30 AM BUSINESS DEVELOPMENT ANALYST Office Visit [facility] - Cardiology - [place] [address] [place] [address] Maylin Cutler DO [address] [address] documented as of this encounter Visit Diagnoses Not on filedocumented in this encounter Care Teams Elementary Librarian Relationship Specialty Start Date End Date Jeff Strickland MD [address] [place] [address] PCP - General Family Medicine 10/14/24 documented as of this encounter
--- OUTSIDE RECORDS SUMMARY | 2024-10-30 20:42 | XMS_ITS | Encounter Summary ---
Author Organization [facility] Address [facility] [place] [address] Care Team Providers Care Travel Counselor Name Role Phone Deandre Bojorquez MD Unavailable [phone] Jeff Strickland MD Primary Care Provider [phone] Encounter Details Date Type Department Care Team (Late st Contact Info) Description 04/10/2023 Lab Requisition [facility] [address] [place] [phone] Alan Davenport MD [facility]1 [facility] [place] [address] Social History Tobacco Use Types Packs/Day Years Used Date Smoking Tobacco: Never Smokeless Tobacco: Never Alcohol Use Standard Drinks/Week Comments Not Currently 0 (1 standard drink = 0.6 oz pur e alcohol) socially in past Sex and Gender Information Value Date Recorded Sex Assigned at Male 07/02/2021 2:37 PM CDT 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 Gender Identity Male 07/02/2021 2:37 PM CDT [...] Description 12/06/2024 10:40 AM CDT Office Visit [facility] - Endocrinology [address] [facility], [place] [address] Marbin Flores MD [address] [facility] DIV OF [place] [address] Niraj Turner MD [address] [facility] 2L [place] [address] documented as of this encounter Procedures Procedure Name Priority Date/Time Associated Diagnosis Comments HOLD HLA SPECIMEN Routine 04/02/2023 3:0 1 PM SALES LEAD GENERATOR documented in this encounter Results * HOLD HLA SPECIMEN (04/02/2023 3:01 PM SALES LEAD GENERATOR) Hold HLA Specimen 04/10/2023 4:01 PM SALES LEAD GENERATOR [facility] Comment:The Hold HLA specime n has been received into the lab and will be held for 5 years at 4 degrees. Blood BLOOD SPECIMEN / Unknown 04/02/2023 3:01 PM SALES LEAD GENERATOR 04/10/2023 3:01 PM SALES LEAD GENERATOR Alan Davenport MD LAB - BLOOD BANK ORDERABLES F inal Result [facility] [address] [place] [address], [facility] documented in this encounter Visit Diagnoses Not on filedocumented in this encounter Additional Health Concerns Infection Onset Date Last Indicated Resolved Time COVID-19 Under Investigation 09/13/2024 09/13/2024 09/13/2024 6:36 AM CDT documented as of this encounter Care Teams Travel Counselor Relationship Specialty Start Date End Date Jeff Strickland MD [address] [place] [address] PCP - General 03/05/18 [place] [address] [address] Orthopedic Surgery 03/28/17 documented as of this encounter
--- OUTSIDE RECORDS SUMMARY | 2024-10-30 20:43 | XMS_ITS | Encounter Summary ---
Author Organization [facility] Address [address] [place] [address] Care Team Providers Care China And Silverware Salesperson Name Role Phone Deandre Bojorquez MD Unavailable [phone] Jeff Strickland MD Primary Care Provider [phone] Encounter Details Date Type Department Care Team (Late st Contact Info) Description 03/12/2024 Lab Requisition [facility] [address] [place] [phone] Alan Davenport MD [facility] OF ABD [place] [address] Social History Tobacco Use Types Packs/Day Years Used Date Smoking Tobacco: Never Smokeless Tobacco: Never Alcohol Use Standard Drinks/Week Comments Not Currently 0 (1 standard drink = 0.6 oz pur e alcohol) socially in past Sex and Gender Information Value Date Recorded Sex Assigned at Male 07/02/2021 2:37 PM CDT Legal Sex Male 10:14 PM ACCOUNT INFORMATION CLERK Gender Identity Male 07/02/2021 2:37 PM CDT Sexual Orientation Straight 07/02/2021 2: 37 PM CDT documented as of this encounter Functional Status * Is person deaf or have serious hearing difficulty? Answer Date of Assessment Author No 08/04/2020 12:15 PM CDT Monique Suáerz RN * Is person blind or have [...] [facility] - Endocrinology [address] [facility], [place] [address] Marbin Flores MD [address] [facility] DIV OF [place]BD [place] [address] Niraj Turner MD [address] [facility] 2L [place] [address] documented as of this encounter Procedures Procedure Name Priority Date/Time Associated Diagnosis Comments HOLD HLA SPECIMEN Routine 03/05/2024 1:4 0 PM ACCOUNT INFORMATION CLERK documented in this encounter Results * HOLD HLA SPECIMEN (03/05/2024 1:40 PM ACCOUNT INFORMATION CLERK) Hold HLA Specimen 03/12/2024 3:00 PM ACCOUNT INFORMATION CLERK [facility] Comment:The Hold HLA specime n has been received into the lab and will be held for 5 years at 4 degrees. Blood BLOOD SPECIMEN / Unknown 03/05/2024 1:40 PM ACCOUNT INFORMATION CLERK 03/12/2024 1:40 PM ACCOUNT INFORMATION CLERK Alan Davenport MD LAB - BLOOD BANK ORDERABLES F inal Result [facility] [address] [place] [address], [facility] documented in this encounter Visit Diagnoses Not on filedocumented in this encounter Additional Health Concerns Infection Onset Date Last Indicated Resolved Time COVID-19 Under Investigation 09/13/2024 09/13/2024 09/13/2024 6:36 AM CDT documented as of this encounter Care Teams China And Silverware Salesperson Relationship Specialty Start Date End Date Jeff Strickland MD [address] [place] [address] PCP - General 03/05/18 [place] [address] [address] Orthopedic Surgery 03/28/17 documented as of this encounter
--- OUTSIDE RECORDS SUMMARY | 2024-10-30 20:43 | XMS_ITS | Clinical Summary ---
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 catheterization GLUCOSE - POINT OF CARE Routine 09/01/2024 10:00 AM CDT CBC W/O DIFFERENTIAL ANDIE 09/01/2024 9:57 AM CDT Coronary artery disease with angina pectoris, unspecified vessel or lesion type, unspecified whether muckleshoot or transplanted heart Abnormal findings on cardiac catheterization BASIC METABOLIC PANEL (CALCIUM TOTAL) ANDIE 09/01/2024 9:57 AM CDT Coronary artery disease with angina pectoris, unspecified vessel or lesion type, unspecified whether muckleshoot or transplanted heart Abnormal findings on cardiac [...] Routine 08/18/2024 2:33 PM CDT 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) ACT LR - POCT ([facility]) Routine 08/18/2024 2:08 PM CDT ACT LR - POCT ([facility]) Routine 08/18/2024 1:24 PM CDT ACT LR - POCT ([facility]) Routine 08/18/2024 12:57 PM CDT ACT LR - POCT ([facility]) Routine 08/18/2024 12:13 PM CDT ANGIOPLASTY PERIPHERAL ARTERY 08/18/2024 10:49 AM CDT 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) GLUCOSE - POINT OF CARE Routine 08/18/2024 10:15 AM CDT BASIC METABOLIC PANEL (CALCIUM TOTAL) ANDIE 08/18/2024 10:11 AM CDT 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 Baseline to 1 hour specimen collection interval exceeded. Blood BLOOD SPECIMEN / Unknown Venipuncture / Unknown 10/28/2024 2:31 AM CDT 10/28/2024 2:37 AM CDT Savanna Mcfarlane MD LAB - CHEMISTRY ORDERABLES Fi nal Result Performing Organization Address City/[facility]/ZIP Co de Phone Number [address] [address], [facility] [phone] * LACTIC ACID BLOOD REFLEX TO REPEAT (10/28/2024 2:31 AM CDT) Only the most recent of5 resultswithin the time period is included. Pathologist [facility] Lactic Acid-Stat 1.9 <=2.0 mmol/L 10/28/2024 3:06 AM CDT [facility] Blood BLOOD SPECIMEN / Unknown Venipuncture / Unknown 10/28/2024 2:31 AM CDT 10/28/2024 2:37 AM CDT Savanna Mcfarlane MD LAB - CHEMISTRY ORDERABLES Fi nal Result Performing Organization Address City/[facility]/ZIP Co de Phone Number [address] [address], [place] [phone] * XR Chest 2Vw (10/27/2024 11:58 PM CDT) Only the most recent of4 resultswithin the time period is included. Anatomical Region Laterality Modality Chest Digital Radiogra phy 10/28/2024 12:0 2 AM CDT Narrative 10/28/2024 3:32 AM CDT PROCEDURE: XR CHEST 2VW, DATE/TIME OF EXAM: 10/27/2024 11:58 PM, LOCATION [facility] INDICATION: R07.9: Chest pain, unspecified type ADDITIONAL [...] shoulders. > Dictated by Branden Jha MD, (radiology equipment servicer). > Dictated by Digital Print Operator I, Blake Plasencia MD have personally reviewed and interpreted this examination/study. > Interpreting Provider: Blake Plasencia MD on 10/28/2024 3:32 AM Procedure Note Blake Plasencia MD - 10/28/2024 PROCEDURE: XR CHEST 2VW, DATE/TIME OF EXAM: 10/27/2024 11:58 PM, LOCATION [facility] INDICATION: R07.9: Chest pain, unspecified type ADDITIONAL [...] shoulders. > Dictated by Branden Jha MD, (radiology equipment servicer). > Dictated by Digital Print Operator I, Blake Plaesncia MD have personally reviewed and interpreted this examination/study. > Interpreting Provider: Blake Plasencia MD on 10/28/2024 3:32 AM Savanna Mcfarlane MD DIAGNOSTIC IMAGING ORDERABLES Final Result * (ABNORMAL) TROPONIN-I HIGH SENSITIVE BASELINE + 1HR (10/27/2024 11:53 PM CDT) Only the most recent of8 resultswithin the time period is included. Troponin I High Sensitive 72(H) <=35 ng/L 10/28/2024 12:49 AM [facility] Blood BLOOD SPECIMEN / Unknown Venipuncture / Unknown 10/27/2024 11:53 PM CDT 10/28/2024 12:12 AM CDT us Savanna Mcfarlane MD LAB - CHEMISTRY ORDERABLES Fi nal Result [address] [address], [facility] [phone] * (ABNORMAL) CBC W AUTO DIFFERENTIAL (10/27/2024 11:53 PM CDT) Only the most recent of11 resultswithin the time period is included. WBC 7.8 4.0 - 10.7 x10E9/L 10/28/2024 12:26 AM [facility] RBC Count 3.31(L) 4.30 - 5.80 x10E12/L 10/28/2024 12:26 AM [facility] Hemoglobin 9.0(L) 13.3 - 17.5 g/dL 10/28/2024 12:26 AM [facility] Hematocrit 27.9(L) 38.7 - 51.1 % 10/28/2024 12:26 AM [facility] MCV 84.3 80.0 - 98.0 fL 10/28/2024 12:26 AM [facility] MCH 27.2 26.7 - 33.6 pg 10/28/2024 12:26 AM [facility] MCHC 32.3 31.7 - 36.3 g/dL 10/28/2024 12:26 AM [facility] RDW-CV 15.9(H) 11.3 - 14.8 % 10/28/2024 12:26 AM [facility] Platelet Count 187 150 - 420 x10E9/L 10/28/2024 12:26 AM [facility] MPV 10.2 7.8 - 11.4 fL 10/28/2024 12:26 AM [facility] Neutrophil % 67.0 41.0 - 74.0 % 10/28/2024 12:26 AM [facility] Lymphocyte % 16.4(L) 17.0 - 47.0 % 10/28/2024 12:26 AM [facility] Monocyte % 14.0(H) 3.0 - 11.0 % 10/28/2024 12:26 AM [facility] Eosinophil % 1.9 0.0 - 7.0 % 10/28/2024 12:26 AM [facility] Basophil % 0.1 0.0 - 1.6 % 10/28/2024 12:26 AM [facility] Immature Granulocytes % 0.6 0.0 - 1.0 % 10/28/2024 12:26 AM [facility] Neutrophil Absolute 5.23 1.60 - 7.50 x10E9/L 10/28/2024 12:26 AM [facility] Lymphocyte Absolute 1.28 1.00 - 4.40 x10E9/L 10/28/2024 12:26 AM [facility] Monocyte Absolute 1.09(H) 0.15 - 1.00 x10E9/L 10/28/2024 12:26 AM [facility] Eosinophil Absolute 0.15 0.00 - 0.60 x10E9/L 10/28/2024 12:26 AM [facility] Basophil Absolute 0.01 0.00 - 0.13 x10E9/L 10/28/2024 12:26 AM [facility] Blood BLOOD SPECIMEN / Unknown Venipuncture / Unknown 10/27/2024 11:53 PM CDT 10/28/2024 12:13 AM CDT us Savanna Mcfarlane MD LAB - HEMATOLOGY ORDERABLES F inal Result [facility] [address] [place] [address], [facility] [phone] * (ABNORMAL) COMPREHENSIVE METABOLIC PANEL (10/27/2024 11:53 PM CDT) Only the most recent of13 resultswithin the time period is included. BUN 34(H) 7 - 26 mg/dL 10/28/2024 12:45 AM [facility] Creatinine 7.86(H) 0.71 - 1.16 mg/dL 10/28/2024 12:45 AM [facility] Sodium 132(L) 136 - 145 mmol/L 10/28/2024 12:45 AM [facility] Potassium 3.5 3.5 - 4.5 mmol/L 10/28/2024 12:45 AM [facility] Chloride 95(L) 98 - 107 mmol/L 10/28/2024 12:45 AM [facility] CO2 25 22 - 29 mmol/L 10/28/2024 12:45 AM [facility] Glucose 104(H) 70 - 99 mg/dL 10/28/2024 12:45 AM [facility] Calcium 8.5 8.4 - 10.2 mg/dL 10/28/2024 12:45 AM [facility] Protein Total 5.6(L) 6.0 - 8.3 g/dL 10/28/2024 12:45 AM [facility] Albumin 2.2(L) 3.4 - 5.0 g/dL 10/28/2024 12:45 AM [facility] Bilirubin Total 0.3 0.2 - 1.2 mg/dL 10/28/2024 12:45 AM [facility] Alkaline Phosphatase 104 40 - 150 U/L 10/28/2024 12:45 AM [facility] ALT 56(H) 5 - 55 U/L 10/28/2024 12:45 AM [facility] AST 48(H) 5 - 34 U/L 10/28/2024 12:45 AM [facility] Anion Gap 12 6 - 16 10/28/2024 12:45 AM [facility] BUN/Creatinine Ratio 4(L) 7 - 23 10/28/2024 12:45 AM [facility] Osmolality Calculated 282 275 - 295 mOsm/kg 10/28/2024 12:45 AM [facility] Albumin/Globulin Ratio 0.6(L) 1.1 - 2.3 10/28/2024 12:45 AM [facility] eGFR by CKD-EPI 7(L) >=90 mL/min/1.7 3 m2 10/28/2024 12:45 AM CDT [facility] Comment:Estimated Glomerular Filtration Rate (eGFR) calculated using the CKD-EPI Creatinine Equation (2020), per the National Kidney Foundation and [place] [employer]ph[employer] recommendations. Blood BLOOD SPECIMEN / Unknown Venipuncture / Unknown 10/27/2024 11:53 PM CDT 10/28/2024 12:12 AM CDT Savanna Mcfarlane MD LAB - CHEMISTRY ORDERABLES Fi nal Result Performing Organization Address City/[facility]/ZIP Co de Phone Number [address] [address], [place] [phone] * LIPASE BLOOD (10/27/2024 11:53 PM CDT) Only the most recent of3 resultswithin the time period is included. Lipase 41 8 - 78 U/L 10/28/2024 12:45 AM CDT [facility] Blood BLOOD SPECIMEN / Unknown Venipuncture / Unknown 10/27/2024 11:53 PM CDT 10/28/2024 12:12 AM CDT Narrative [facility] - 10/28/2024 12:45 AM CDT Lipase results from the Matthew Alinity analyzer may not be comparable with other methodologies. us Savanna Mcfarlane MD LAB - CHEMISTRY ORDERABLES Fi nal Result Performing Organization Address City/[facility]/ZIP Co de Phone Number [address] [address], [place] [phone] * (ABNORMAL) PTH INTACT ([facility]) (10/21/2024 1:11 PM CDT) Only the most recent of2 resultswithin the time period is included. PTH Intact 316.8(H) 8.0 - 77.0 pg/mL 10/21/2024 1:56 PM CDT [facility] Blood BLOOD SPECIMEN / Unknown Lab Venipuncture / Unknown 10/21/2024 1:11 PM CDT 10/21/2024 1:23 PM CDT Result [facility] Becky Wilson MD LAB - CHEMISTRY ORDERABLES Fin al Result [address] [address], [place] [phone] * LAB MISC TEST (10/21/2024 1:11 PM CDT) [facility] Test Name PHOSPHO-TAU 217 PLASMA 10/25/2024 12:29 PM CDT [facility] Test Result See Scanned Report 10/25/2024 12:29 PM CDT [facility] Comment Ref Lab [place] 10/25/2024 12:29 PM CDT [facility] Blood BLOOD SPECIMEN / Unknown Lab Venipuncture / Unknown 10/21/2024 1:11 PM CDT 10/21/2024 1:15 PM CDT Result [facility] Becky Wilson MD LAB SEND OUT Final Result Performing Organization Address City/[facility] Co de Phone Number [facility] [address] [place] [address] * MAGNESIUM BLOOD (10/21/2024 1:11 PM CDT) Only the most recent of14 resultswithin the time period is included. [facility] Magnesium 1.6 1.6 - 2.6 mg/dL 10/21/2024 1:49 PM CDT [facility] Blood BLOOD SPECIMEN / Unknown Lab Venipuncture / Unknown 10/21/2024 1:11 PM CDT 10/21/2024 1:20 PM CDT Result [facility] Becky Wilson MD LAB - CHEMISTRY ORDERABLES Fin al Result Performing Organization Address [facility]/ZIP Co de Phone Number [address] [address], [place] [phone] * AMMONIA (10/21/2024 1:11 PM CDT) Ammonia 30 <=72 umol/L 10/21/2024 1:32 PM CDT [facility] Blood BLOOD SPECIMEN / Unknown Lab Venipuncture / Unknown 10/21/2024 1:11 PM CDT 10/21/2024 1:15 PM CDT us Becky Wilson MD LAB - CHEMISTRY ORDERABLES Fin al Result [facility] [address] [place] [address], [facility] [phone] * CT Head Wo Contrast (10/19/2024 3:03 PM CDT) Only the most recent of4 resultswithin the time period is included. Anatomical Region Laterality Modality Head Computed Tomogra phy 10/19/2024 3:11 PM CDT Impressions 10/19/2024 3:41 PM CDT IMPRESSION: 1.No acute intracranial hemorrhage, territorial infarct, or significant mass effect. Report dictated by Saroj Linda MD, (radiology equipment servicer). > Dictated by Digital Print Operator I, Raymundo Hanson MD have personally reviewed [...] Report dictated by Saroj Linda MD, MD (radiology equipment servicer). > Dictated by Digital Print Operator I, Raymundo Hanson MD have personally reviewed and interpreted this examination/study. > Interpreting Provider: Raymundo Hanson MD on 10/19/2024 3:41 PM Alfreda Smith PA-C CT ORDERABLES Final Result * EKG 12-LEAD (10/19/2024 2:21 PM CDT) Only the most recent of6 resultswithin the time period is included. Pathologist [facility] Ventricular Rate 64 BPM [facility] MUSE Atrial Rate 64 BPM [facility] MUSE P-R Interval 146 ms [facility] MUSE QRS Duration ms 96 ms [facility] MUSE Q-T Interval ms 494 ms [facility] MUSE QTC Calculation (Bezet) 509 ms [facility] MUSE Calculated P [place] 69 degrees SL MUSE Calculated R [place] -63 degrees SLH MUSE Calculated T [place] -90 degrees [facility] MUSE Interpretation EKG NORMAL SINUS RHYTHM LEFT ANTERIOR FASCICULAR BLOCK T WAVE ABNORMALITY, CONSIDER INFEROLATERAL ISCHEMIA PROLONGED QT ABNORMAL ECG . Confirmed by DOUG CAGLE MD ([id number]) on 10/23/2024 11:38:28 PM [facility] MUSE 10/19/2024 2:21 PM CDT 10/23/2024 11:38 PM CDT Alfreda Smith PA-C ECG ORDERABLES Edite d Result - Final [facility] MUSE * (ABNORMAL) B-TYPE NATRIURETIC PEPTIDE (10/17/2024 7:33 PM CDT) Only the most recent of3 resultswithin the time period is included. Pathologist [facility] BNP 471(H) <100 pg/mL 10/17/2024 10:07 PM CDT [facility] Comment: A decision threshold of [...] LAB - CHEMISTRY ORDERABLES Fi nal Result [facility] [place] [id number] [place] [address], [facility] [phone] * XR CHEST 1VW PORTABLE (10/09/2024 7:27 PM CDT) Only the most recent of2 resultswithin the time period is included. Anatomical Region Laterality Modality Chest Digital Radiogra phy 10/09/2024 10:4 9 PM CDT Narrative 10/10/2024 1:17 AM CDT PROCEDURE: XR CHEST 1VW PORTABLE, DATE/TIME OF EXAM: 10/09/2024 7:27 PM, LOCATION [facility] INDICATION: R06.02: Short of breath on exertion ADDITIONAL CLINICAL INFORMATION: Ordering Provider Reason For Exam: r/o effusion, pneumonia Technologist Note: Additional: COMPARISON: Chest x-ray from 10/07/2024. FINDINGS/IMPRESSION: There is no focal consolidation, pleural effusion, or pneumothorax.The cardiomediastinal silhouette is normal. No displaced fractures identified. Hardware projecting over thoracic spine. > Dictated by Otis Bocanegra MD (radiology equipment servicer). > Dictated by Digital Print Operator I, Blake Plasencia MD have personally reviewed and interpreted this examination/study. > Interpreting Provider: Blake Plasencia MD on 10/10/2024 1:17 AM Procedure Note Blake Plasencia MD - 10/10/2024 PROCEDURE: XR CHEST 1VW PORTABLE, DATE/TIME OF EXAM: 10/09/2024 7:27PM, LOCATION [facility] INDICATION: R06.02: Short of breath on exertion ADDITIONAL CLINICAL INFORMATION: Ordering Provider Reason For Exam: r/o effusion, pneumonia Technologist Note: Additional: COMPARISON: Chest x-ray from 10/07/2024. FINDINGS/IMPRESSION: There is no focal consolidation, pleural effusion, or pneumothorax.The cardiomediastinal silhouette is normal. No displaced fracturesidentified. Hardware projecting over thoracic spine. > Dictated by Otis Bocanegra MD (radiology equipment servicer). > Dictated by Digital Print Operator I, Blake Plasencia MD have personally reviewed and interpreted this examination/study. > Interpreting Provider: Blake Plasencia MD on 10/10/2024 1:17 AM Anjali Avelar RADIOLOGIC TECH-SHIPPING AND RECEIVING CLERK DIAGNOSTIC IMAGING O RDERABLES Final Result * (ABNORMAL) BLOOD GASES ABBEY + COOX PANEL (10/09/2024 4:39 PM CDT) Only the most recent of2 resultswithin the time period is included. pH Venous 7.41 7.32 - 7.42 pH 10/09/2024 5:04 PM [facility] pO2 Venous 34(L) 35 - 40 mmHg 10/09/2024 5:04 PM [facility] pCO2 Venous 44 40 - 50 mmHg 10/09/2024 5:04 PM [facility] HCO3 Venous 27.9 20 - 30 mmol/L 10/09/2024 5:04 PM [facility] Base Excess Venous 2.9(H) -2.0 - 2.0 mmol/L 10/09/2024 5:04 PM [facility] Oxyhemoglobin Venous 56.8 % 09/18 5:04 PM [facility] Comment:A^Absorbance Error Deoxyhemoglobin (HHB) Venous % 42.6 % 10/09/2024 5:04 PM [facility] Comment:A^Absorbance Error Methemoglobin <0.8 0.0 - 2.0 % 10/09/2024 5:04 PM [facility] Comment:A^Absorbance Error Carboxyhemoglobin 0.6 0.0 - 2.0 % 2024 5:04 PM [facility] Comment:A^Absorbance Error O2 Content Venous 7.7 Interpret within clinical context ml/dL 10/09/2024 5:04 PM [facility] Hemoglobin by COOX 9.6(L) 12.0 - 17.6 g/dL 10/09/2024 5:04 PM [facility] Comment:A^Absorbance Error O2 Saturation Venous 57(L) >=70 % 09/18 5:04 PM [facility] Comment:A^Absorbance Error FI O2 Mixed Venous 21.0 % 2024 5:04 PM CDT [facility] Blood BLOOD SPECIMEN / Unknown Venipuncture / Unknown 10/09/2024 4:39 PM CDT 10/09/2024 4:56 PM CDT Narrative [facility] - 10/09/2024 5:04 PM CDT Carboxyhemoglobin Normal Concentration: Non-smokers: 0-2%; Smokers: 0-9%; Toxic: >20% Anjali Avelar RADIOLOGIC TECH-[facility] LAB - BLOOD GASES OR DERABLES Final Result [address] [address], [place] [phone] * PHOSPHORUS BLOOD (10/09/2024 4:39 PM CDT) Only the most recent of8 resultswithin the time period is included. Phosphorus 4.9 2.8 - 5.1 mg/dL 10/09/2024 5:29 PM CDT [facility] Blood BLOOD SPECIMEN / Unknown Venipuncture / Unknown 10/09/2024 4:39 PM CDT 10/09/2024 4:58 PM CDT An[facility]ali [facility] - CHEMISTRY ORDE RABLES Final Result [address] [address], [place] [phone] * (ABNORMAL) GLUCOSE - POINT OF CARE (10/09/2024 4:26 PM CDT) Only the most recent of55 resultswithin the time period is included. Glucose WB/POC 115(H) 70 - 99 mg/dL 10/09/2024 4:30 PM CDT [facility] Specimen Type Arterial/C apillary 10/09/2024 4:30 PM CDT [facility] Blood BLOOD SPECIMEN / Unknown 10/09/2024 4:26 PM CDT 10/09/2024 4:30 PM CDT us Provider Unknown LAB - POINT OF CARE ORDERABLES Final Result [facility] [address] [place] [address], [facility] [phone] * (ABNORMAL) URINALYSIS REFLEX MICROSCOPIC REFLEX CULTURE (10/07/2024 6:16 PM CDT) Color UA Yellow Yellow, Straw 10/07/2024 6:39 PM T [facility] Clarity UA Ex. Turbid(A) Clear 10/07/2024 6:39 PM T [facility] Glucose UA Normal Normal 10/07/2024 6:39 PM [facility] Bilirubin UA Negative Negative 10/07/2024 6:39 PM T [facility] Ketone UA Negative Negative 10/07/2024 6:39 PM T [facility] Specific [place] UA 1.015 1.005 - 1.030 10/07/2024 6:39 PM [facility] Blood UA 3+(A) Negative 10/07/2024 6:39 PM [facility] pH UA 6.0 5.0 - 8.0 10/07/2024 6:39 PM [facility] Protein UA 2+(A) Negative 10/07/2024 6:39 PM T [facility] Urobilinogen UA Normal Normal mg/dL 10/07/2024 6:39 PM [facility] Nitrite UA Negative Negative 10/07/2024 6:39 PM [facility] Leukocyte Esterase UA 500 MOLLY/uL(A) Negative 10/07/2024 6:39 PM [facility] RBC UA 51-100(A) 0 - 5 # /hpf 10/07/2024 6:39 PM [facility] WBC UA >100(A) 0 - 5 # /hpf 10/07/2024 6:39 PM [facility] Bacteria UA 2+(A) None Seen 10/07/2024 6:39 PM [facility] Squamous Epithelial Cells None Seen 0 - 5 /hpf 10/07/2024 6:39 PM CDT [facility] Transitional Epithelial Cell UA 0-2(A) None Seen /HPF 10/07/2024 6:39 PM CDT [facility] Budding Yeast Moderate(A) None seen /hpf 10/07/2024 6:39 PM CDT [facility] Reflex Status Culture to follow 10/07/2024 6:39 PM CDT [facility] Urine URINE SPECIMEN OBTAINED VIA [employer] URINARY CATHETER / Unknown Collection / Unknown 10/07/2024 6:16 PM CDT 10/07/2024 6:19 PM CDT Narrative [facility] - 10/07/2024 6:39 PM CDT Richard Sylvester MD LAB - URINALYSIS ORDERABLES Kenna haider Result [facility] [address] [place] [address], [facility] [phone] * (ABNORMAL) CULTURE URINE (10/07/2024 6:16 PM CDT) Pathologist [facility] Culture Urine 50,000-100,000 CFU/mL Klebsiella pneumoniae(A) MUSHTAQ 10/09/2024 5:54 AM CDT [facility] MICROBIOLOGY Urine URINE SPECIMEN OBTAINED VIA [employer] URINARY CATHETER / Unknown Collection / Unknown 10/07/2024 6:16 PM CDT 10/07/2024 6:19 PM CDT [facility] MICROBIOLOGY - 10/09/2024 5:54 AM CDT Organism [...] MD LAB - MICROBIOLOGY ORDERABLES nal Result [facility] [address] [place] [address], [facility] [phone] * VAS Arterial Multilevel Le (10/05/2024 12:24 PM CDT) Anatomical Region Laterality Modality Intravascular Ul trasound 10/05/2024 11:3 4 AM CDT Narrative Procedure Note Elroy Holcomb MD - 10/05/2024 Guy Messina MD VASCULAR LAB ORDERABLES Edit ed Result - Final * (ABNORMAL) HEMOGLOBIN A1C (09/25/2024 5:06 AM CDT) Hemoglobin A1c 5.8(H) <=5.6 % 09/25/2024 8:19 AM CDT [facility] Estimated Average Glucose 120 mg/dL 09/25/2024 8:19 AM CDT [facility] Comment: HbA1c Interpretation: Normal : < 5.7% Pre-diabetes: 5.7-6.4% Diabetes: Equal to or greater than 6.5% Test results diagnostic of diabetes should be repeated for confirmation. Treatment target values recommended by ADA and other clinical organizations should be used to evaluate metabolic control in patients. Reference: [place] [employer], Standards of Care in Diabetes [...] LAB - CHEMISTRY ORDERABLES F inal Result [facility] [address] [place] [address], [facility] [phone] * (ABNORMAL) RENAL FUNCTION PANEL (09/24/2024 7:53 PM CDT) Only the most recent of3 resultswithin the time period is included. BUN 42(H) 7 - 26 mg/dL 09/24/2024 8:47 PM [facility] Creatinine 12.22(H) 0.71 - 1.16 mg/dL 09/24/2024 8:47 PM [facility] Sodium 136 136 - 145 mmol/L 09/24/2024 8:47 PM [facility] Potassium 3.9 3.5 - 4.5 mmol/L 09/24/2024 8:47 PM [facility] Chloride 97(L) 98 - 107 mmol/L 09/24/2024 8:47 PM [facility] CO2 24 22 - 29 mmol/L 09/24/2024 8:47 PM [facility] Glucose 93 70 - 99 mg/dL 09/24/2024 8:47 PM [facility] Albumin 1.8(L) 3.4 - 5.0 g/dL 09/24/2024 8:47 PM [facility] Calcium 8.4 8.4 - 10.2 mg/dL 09/24/2024 8:47 PM CDT [facility] Phosphorus 7.0(H) 2.8 - 5.1 mg/dL 09/24/2024 8:47 PM T [facility] Anion Gap 15 6 - 16 09/24/2024 8:47 PM T [facility] BUN/Creatinine Ratio 3(L) 7 - 23 09/24/2024 8:47 PM T [facility] Osmolality Calculated 292 275 - 295 mOsm/kg 09/24/2024 8:47 PM T [facility] eGFR by CKD-EPI 4(L) >=90 mL/min/1.7 3 m2 09/24/2024 8:47 PM [facility] Comment:Estimated Glomerular Filtration Rate (eGFR) calculated using the CKD-EPI Creatinine Equation (2020), per the National Kidney Foundation and [place] [employer]ph[employer] recommendations. Blood BLOOD SPECIMEN / Unknown Lab Venipuncture / Unknown 09/24/2024 7:53 PM CDT 09/24/2024 8:15 PM CDT us Guy Messina MD LAB - CHEMISTRY ORDERABLES F inal Result [address] [address], [facility] [phone] * TSH REFLEX FREE T4 (09/24/2024 12:02 PM CDT) TSH 1.567 0.350 - 4.940 uIU/mL 09/24/2024 12:57 PM CDT [facility] Blood BLOOD SPECIMEN / Unknown 09/24/2024 12:02 PM CDT 09/24/2024 12:18 PM CDT us Alexis Rodrigez III, MD LAB - CHEMISTRY ORDERAB LES Final Result [address] [address], [place] [phone] * (ABNORMAL) VITAMIN B1 (09/24/2024 12:02 PM CDT) Vitamin B1 Whole Blood 205(H) 70 - 180 nmol/L 09/27/2024 7:16 PM CDT [facility] ([facility] Comment: INTERPRETIVE INFORMATION: Vitamin B1, Whole Blood This assay measures the concentration of thiamine diphosphate (TDP), the primary active form of vitamin B1. Approximately 90 percent of vitamin B1 present in whole blood is TDP. Thiamine and thiamine monophosphate, which comprise the remaining 10 percent, are not measured. This test was developed and its performance characteristics determined by [facility]. It has not been cleared or approved by the US Food and Drug Administration. This test was performed in a CLIA certified laboratory and is intended for clinical purposes. Performed By: [place] [address] C.O.D. Audit Clerk: Mk Egan MD, PhD CLIA Number: [id number] Blood BLOOD SPECIMEN / Unknown 09/24/2024 12:02 PM CDT 09/24/2024 12:11 PM CDT Alexis Rodrigez III, MD LAB - CHEMISTRY ORDERAB LES Final Result [facility]) [address] [place] [address] [place] [address] * (ABNORMAL) VITAMIN B12 (09/24/2024 12:02 PM CDT) [facility] Vitamin B12 1,151(H) 213 - 816 pg/mL 09/24/2024 12:57 PM CDT [facility] Blood BLOOD SPECIMEN / Unknown 09/24/2024 12:02 PM CDT 09/24/2024 12:18 PM CDT Alexis Rodrigez III, MD LAB - CHEMISTRY ORDERAB LES Final Result [address] [address], [facility] [phone] * (ABNORMAL) TROPONIN-I HIGH SENSITIVE (09/24/2024 5:08 AM CDT) [facility] Troponin I High Sensitive 83(H) <=35 ng/L 09/24/2024 6:10 AM CDT [facility] Blood BLOOD SPECIMEN / Unknown Lab Venipuncture / Unknown 09/24/2024 5:08 AM CDT 09/24/2024 5:28 AM CDT us Jennifer Winn MD LAB - CHEMISTRY ORDERABLES F inal Result [id number] [place] [address], [facility] [phone] * CT Lumbar Spine Wo Contrast (09/23/2024 [...] pelvis. Report dictated by Branden Jha MD (radiology equipment servicer) 09/23/2024 5:45 PM. > Dictated by Digital Print Operator I, Jana Clark MD have personally reviewed and interpreted this examination/study. > Interpreting Provider: Jana Clark MD on 09/23/2024 6:29 PM Narrative 09/23/2024 6:29 PM CDT PROCEDURE: CT HEAD WO CONTRAST, CT LUMBAR SPINE WO CONTRAST, CT THORACIC SPINE WO CONTRAST, CT CERVICAL SPINE WO CONTRAST, DATE/TIME OF EXAM: 09/23/2024 5:32 PM, LOCATION [facility] INDICATION: W19.XXXA: Fall, initial encounter R41.82: Altered mental status, unspecified altered mental status type ADDITIONAL CLINICAL INFORMATION: Ordering Provider Reason For Exam: r/o bleed, fx (accession [id number]), r/o fx (accession [id number]), r/o fx (accession [id number]), r/o fx (accession [id number]) Technologist Note: None. Additional: 69 year old [...] DATE/TIME OF EXAM: 09/23/2024 5:32 PM, LOCATION [facility] INDICATION: W19.XXXA: Fall, initial encounter R41.82: Altered mental status, unspecified altered mental status type ADDITIONAL CLINICAL INFORMATION: Ordering Provider Reason For Exam: r/o bleed, fx (accession [id number]), r/o fx (accession [id number]), r/o fx (accession [id number]), r/o fx (accession [id number]) Technologist Note: None. Additional: 69 year old [...] pelvis. Report dictated by Branden Jha MD (radiology equipment servicer) 09/23/2024 5:45 PM. > Dictated by Digital Print Operator I, Jana Clark MD have personally reviewed [...] pelvis. Report dictated by Branden Jha MD (radiology equipment servicer) 09/23/2024 5:45 PM. > Dictated by Digital Print Operator I, Jana Clark MD have personally reviewed and interpreted this examination/study. > Interpreting Provider: Jana Clark MD on 09/23/2024 6:29 PM Narrative 09/23/2024 6:29 PM CDT PROCEDURE: CT HEAD WO CONTRAST, CT LUMBAR SPINE WO CONTRAST, CT THORACIC SPINE WO CONTRAST, CT CERVICAL SPINE WO CONTRAST, DATE/TIME OF EXAM: 09/23/2024 5:32 PM, LOCATION [facility] INDICATION: W19.XXXA: Fall, initial encounter R41.82: Altered mental status, unspecified altered mental status type ADDITIONAL CLINICAL INFORMATION: Ordering Provider Reason For Exam: r/o bleed, fx (accession [id number]), r/o fx (accession [id number]), r/o fx (accession [id number]), r/o fx (accession [id number]) Technologist Note: None. Additional: 69 year old [...] DATE/TIME OF EXAM: 09/23/2024 5:32 PM, LOCATION [facility] INDICATION: W19.XXXA: Fall, initial encounter R41.82: Altered mental status, unspecified altered mental status type ADDITIONAL CLINICAL INFORMATION: Ordering Provider Reason For Exam: r/o bleed, fx (accession [id number]), r/o fx (accession [id number]), r/o fx (accession [id number]), r/o fx (accession [id number]) Technologist Note: None. Additional: 69 year old [...] pelvis. Report dictated by Branden Jha MD (radiology equipment servicer) 09/23/2024 5:45 PM. > Dictated by Digital Print Operator Jana Leigh MD have personally reviewed and [...] pelvis. Report dictated by Branden Jha MD (radiology equipment servicer) 09/23/2024 5:45 PM. > Dictated by Digital Print Operator Jana Leigh MD have personally reviewed and interpreted this examination/study. > Interpreting Provider: Jana Clark MD on 09/23/2024 6:29 PM Narrative 09/23/2024 6:29 PM CDT PROCEDURE: CT HEAD WO CONTRAST, CT LUMBAR SPINE WO CONTRAST, CT THORACIC SPINE WO CONTRAST, CT CERVICAL SPINE WO CONTRAST, DATE/TIME OF EXAM: 09/23/2024 5:32 PM, LOCATION [facility] INDICATION: W19.XXXA: Fall, initial encounter R41.82: Altered mental status, unspecified altered mental status type ADDITIONAL CLINICAL INFORMATION: Ordering Provider Reason For Exam: r/o bleed, fx (accession [id number]), r/o fx (accession [id number]), r/o fx (accession [id number]), r/o fx (accession [id number]) Technologist Note: None. Additional: 69 year old [...] DATE/TIME OF EXAM: 09/23/2024 5:32 PM, LOCATION [facility] INDICATION: W19.XXXA: Fall, initial encounter R41.82: Altered mental status, unspecified altered mental status type ADDITIONAL CLINICAL INFORMATION: Ordering Provider Reason For Exam: r/o bleed, fx (accession [id number]), r/o fx (accession [id number]), r/o fx (accession [id number]), r/o fx (accession [id number]) Technologist Note: None. Additional: 69 year old [...] pelvis. Report dictated by Branden Jha MD (radiology equipment servicer) 09/23/2024 5:45 PM. > Dictated by Digital Print Operator I, Jana Clark MD have personally reviewed [...] erosion. Report dictated by Branden Jha MD, (radiology equipment servicer). > Dictated by Digital Print Operator I, Nicole Bernabe MD have personally reviewed and interpreted this examination/study. > Interpreting Provider: Nicole Bernabe MD on 09/24/2024 9:17 AM Narrative 09/24/2024 9:17 AM CDT PROCEDURE: XR FOOT LEFT 3VW OR MORE, DATE/TIME OF EXAM: 09/23/2024 5:34 PM, LOCATION [facility] INDICATION: W19.XXXA: Fall, initial encounter ADDITIONAL CLINICAL [...] MORE, DATE/TIME OF EXAM: 09/23/2024 5:34PM, LOCATION [facility] INDICATION: W19.XXXA: Fall, initial encounter ADDITIONAL CLINICAL [...] erosion. Report dictated by Branden Jha MD, (radiology equipment servicer). > Dictated by Digital Print Operator I, Nicole Bernabe MD have personally reviewed and interpreted this examination/study. > Interpreting Provider: Nicole Bernabe MD on 09/24/2024 9:17 AM Moon Lewis PA-C DIAGNOSTIC IMAGING ORDERABLES F inal Result * (ABNORMAL) C-REACTIVE PROTEIN (09/23/2024 4:52 PM CDT) Only the most recent of2 resultswithin the time period is included. C-Reactive Protein 1.6(H) <=0.5 mg/dL 09/23/2024 5:42 PM CDT [facility] Blood BLOOD SPECIMEN / Unknown Venipuncture / Unknown 09/23/2024 4:52 PM CDT 09/23/2024 4:56 PM CDT Moon Lewis PA-C LAB - CHEMISTRY ORDERABLES Kenna l Result Performing Organization Address City/[facility]/ZIP Co de Phone Number [address] [address], [facility] [phone] * (ABNORMAL) ERYTHROCYTE SEDIMENTATION RATE (09/23/2024 4:52 PM CDT) Only the most recent of2 resultswithin the time period is included. Erythrocyte Sedimentation Rate Westergren 116(H) 0 - 20 MM/HR 09/23/2024 5:21 PM CDT [facility] Blood BLOOD SPECIMEN / Unknown Venipuncture / Unknown 09/23/2024 4:52 PM CDT 09/23/2024 5:05 PM CDT Moon Lewis PA-C LAB - HEMATOLOGY ORDERABLES Fin al Result [address] [address], [facility] [phone] * (ABNORMAL) DIFFERENTIAL MANUAL (09/23/2024 4:52 PM CDT) Only the most recent of3 resultswithin the time period is included. Neutrophil % 78(H) 41 - 74 % 09/23/2024 5:33 PM [facility] Lymphocyte % 10(L) 17 - 47 % 09/23/2024 5:33 PM [facility] Monocyte % 10 3 - 11 % 09/23/2024 5:33 PM [facility] Eosinophil % 1 0 - 7 % 09/23/2024 5:33 PM [facility] Metamyelocyte % 1(H) 0% % 5:33 PM [facility] Neutrophil Absolute 8.66(H) 1.60 - 7.50 x10E9/L 09/23/2024 5:33 PM T [facility] Lymphocyte Absolute 1.11 1.00 - 4.40 x10E9/L 09/23/2024 5:33 PM [facility] Monocyte Absolute 1.11(H) 0.15 - 1.00 x10E9/L 09/23/2024 5:33 PM T [facility] Eosinophil Absolute 0.11 0.00 - 0.60 x10E9/L 09/23/2024 5:33 PM [facility] RBC Morphology REVIEWED 09/23/2024 5:33 PM [facility] Microcytosis MODERATE(A) (none) 09/23/2024 5:33 PM [facility] Blood BLOOD SPECIMEN / Unknown Venipuncture / Unknown 09/23/2024 4:52 PM CDT 09/23/2024 5:05 PM CDT us Moon Lewis PA-C LAB - HEMATOLOGY ORDERABLES Fin al Result [address] [address], [facility] [phone] * (ABNORMAL) CBC W/O DIFFERENTIAL (09/16/2024 1:01 AM CDT) Only the most recent of10 resultswithin the time period is included. Pathologist [facility] WBC 9.3 4.0 - 10.7 x10E9/L 09/16/2024 1:43 AM [facility] RBC Count 3.37(L) 4.30 - 5.80 x10E12/L 09/16/2024 1:43 AM [facility] Hemoglobin 9.5(L) 13.3 - 17.5 g/dL 09/16/2024 1:43 AM [facility] Hematocrit 28.3(L) 38.7 - 51.1 % 09/16/2024 1:43 AM [facility] MCV 84.0 80.0 - 98.0 fL 09/16/2024 1:43 AM [facility] MCH 28.2 26.7 - 33.6 pg 09/16/2024 1:43 AM [facility] MCHC 33.6 31.7 - 36.3 g/dL 09/16/2024 1:43 AM [facility] RDW-CV 15.7(H) 11.3 - 14.8 % 09/16/2024 1:43 AM [facility] Platelet Count 205 150 - 420 x10E9/L 09/16/2024 1:43 AM [facility] MPV 10.3 7.8 - 11.4 fL 09/16/2024 1:43 AM [facility] Blood BLOOD SPECIMEN / Unknown Lab Venipuncture / Unknown 09/16/2024 1:01 AM CDT 09/16/2024 1:40 AM CDT us Alexis Rodrigez III, MD LAB - HEMATOLOGY ORDERA BLES Final Result [facility] [address] [place] [address], [facility] [phone] * VANCOMYCIN LEVEL RANDOM (09/15/2024 4:10 PM CDT) Only the most recent of3 resultswithin the time period is included. Pathologist [facility] Vancomycin Random 31.2 Therapeutic Ranges not established for random specimens ug/mL 09/15/2024 6:00 PM [facility] Blood BLOOD SPECIMEN / Unknown Lab Venipuncture / Unknown 09/15/2024 4:10 PM CDT 09/15/2024 4:51 PM CDT Narrative [facility] - 09/15/2024 6:00 PM CDT See institution protocol. us Aureliano Pierce MD LAB - CHEMISTRY ORDERAB LES Final Result Performing Organization Address City/[facility]/ZIP Co de Phone Number [address] [address], [place] [phone] * LACTIC ACID BLOOD (09/14/2024 3:32 PM CDT) Only the most recent of4 resultswithin the time period is included. Pathologist [facility] Lactic Acid-Stat 2.0 <=2.0 mmol/L 09/14/2024 4:17 PM CDT [facility] Blood BLOOD SPECIMEN / Unknown Lab Venipuncture / Unknown 09/14/2024 3:32 PM CDT 09/14/2024 3:51 PM CDT us Alexis Rodrigez III, MD LAB - CHEMISTRY ORDERAB LES Final Result Performing Organization Address [facility]/ZIP Co de Phone Number [address] [address], [place] [phone] * (ABNORMAL) HGB HCT PANEL (09/14/2024 1:24 PM CDT) Only the most recent of2 resultswithin the time period is included. Pathologist [facility] Hemoglobin 8.7(L) 13.3 - 17.5 g/dL 09/14/2024 1:41 PM CDT [facility] Hematocrit 25.6(L) 38.7 - 51.1 % 09/14/2024 1:41 PM CDT [facility] Blood BLOOD SPECIMEN / Unknown Venipuncture / Unknown 09/14/2024 1:24 PM CDT 09/14/2024 1:30 PM CDT us Alexis Rodrigez III, MD LAB - HEMATOLOGY ORDERA BLES Final Result [facility] [address] [place] [address], [facility] [phone] * PATHOLOGY TISSUE (09/14/2024 11:45 AM CDT) Case Report Surgical Pathology Report Case: [id number] Authorizing Provider: Elroy Holcomb MD Collected: 09/14/2024 11:45 AM Ordering Location: [facility]O OP Received: 09/14/2024 12:47 PM Pathologist: Charmaine Myrick MD Specimen: Toe, Left, Left Great Toe 09/16/2024 11:40 AM CDT [facility] Final Diagnosis Toe, left great, amputation (A): - Skin ulceration and necrosis - Acute osteomyelitis - Bone margin negative for acute inflammation - Skin and soft tissue margin appears viable 09/16/2024 11:40 AM CDT [facility] at 1140 CDT Microscopic Description and Comment Microscopic examination substantiates the diagnosis. 09/16/2024 11:40 AM CDT [facility] Clinical History The patient is a 69-year-old man with first toe dry gangrene and history of PAD. 09/16/2024 11:40 AM CDT [facility] Gross Description The requisition [...] hemorrhage. There are no additional gross lesions. Tube Sizer And Cutter Operator sections are submitted as follows: A1-skin and soft tissue to resection margin, medial and dorsal surfaces A2-bony resection margin, decalcified A3-partial proximal cross-section with surrounding mummification, decalcified IKD 09/16/2024 11:40 AM CDT [facility] Pathologist Location at [facility] 09/16/2024 11:40 AM CDT [facility] Disclaimer The performance characteristics of all immunohistochemical and indirect immunofluorescence stains (if any) cited in this report were determined by the Histopathology Laboratory of [facility]. Some of these tests were developed by [...] attending (teaching) pathologist. 09/16/2024 11:40 AM CDT [facility] Embedded Images 09/16/2024 11:40 AM T [facility] Amputation, Traumatic (Gross Only) (Toe, Left) 09/14/2024 11:45 AM CDT 09/14/2024 12:47 PM CDT Comment:Pre-op diagnosis: Toe gangrene (HCC) [I96] us Elroy Holcomb MD LAB - PATHOLOGY/CYTOLOGY O RDERABLES Final Result Performing Organization Address City/State/[facility] Co de Phone Number [facility] [address] [place] [address], [facility] [phone] * Peripheral Nerve Block (09/14/2024 10:38 AM [...] fungus isolated MUSHTAQ 10/11/2024 8:05 AM CDT [facility]CRO[facility] Fungus Stain No yeast or hyphae seen 10/11/2024 8:05 AM CDT [facility] Microbiology PERITONEAL DIALYSATE SPECIMEN / Unknown Collection / Unknown 09/13/2024 8:08 PM CDT 09/13/2024 8:10 PM CDT us Alexis Rodrigez III, MD LAB - MICROBIOLOGY PK ZENG Final Result [facility] [address] [place], [place] [address], [facility] [phone] * DIFFERENTIAL MANUAL FLUID (09/13/2024 8:08 PM CDT) Fluid Source Peritoneal 09/13/2024 9:03 PM CDT [facility] Body Fluid Total Cell Count 100 x10E6/L 09/13/2024 9:03 PM CDT [facility] Neutrophils Fluid Percent 11 % 09/13/2024 9:03 PM CDT [facility] Lymphocytes Fluid Percent 6 % 09/13/2024 9:03 PM CDT [facility] Macrophages Fluid Percent 79 % 09/13/2024 9:03 PM CDT [facility] Mesothelial Cells Fluid Percent 4 % 09/13/2024 9:03 PM CDT [facility] Fluid PERITONEAL FLUID / Unknown Collection / Unknown 09/13/2024 8:08 PM CDT 09/13/2024 8:10 PM CDT [facility] - 09/13/2024 9:03 PM CDT No reference ranges established for body fluid differential cell counts. The test results must be integrated into the clinical context for interpretation. us Alexis Rodrigez III, MD LAB - BODY FLUID ORDERA BLES Final Result [facility] [address] [place] [address], [place] [phone] * CULTURE FLUID+GRAM STAIN (09/13/2024 8:08 PM CDT) Culture No growth MUSHTAQ 09/17/2024 12:38 AM CDT [facility] Gram Stain Light Polymorphonuclear cells 09/17/2024 12:38 AM CDT [facility] Gram Stain No organisms seen 025 12:38 AM CDT [facility] Other PERITONEAL DIALYSATE SPECIMEN / Unknown Collection / Unknown 09/13/2024 8:08 PM CDT 09/13/2024 8:10 PM CDT us Alexis Rodrigez III, MD LAB - MICROBIOLOGY ORDE RABLES Final Result [facility]CRO[facility] [address] [place] [address], [facility] [phone] * CULTURE ANAEROBE (09/13/2024 8:08 PM CDT) Culture No anaerobic organisms isolated MUSHTAQ 09/19/2024 8:26 AM CDT [facility] Microbiology PERITONEAL DIALYSATE SPECIMEN / Unknown Collection / Unknown 09/13/2024 8:08 PM CDT 09/13/2024 8:11 PM CDT Alexis Rodrigez III, MD LAB - MICROBIOLOGY ORDE RABLES Final Result [facility]CRO[facility] [address] [place] [address], [facility] [phone] * CELL COUNT W DIFFERENTIAL FLUID (09/13/2024 8:08 PM CDT) Fluid Source Peritoneal 09/13/2024 9:03 PM CDT [facility] Fluid Appearance CLEAR 09/13/2024 9:03 PM CDT [facility] Fluid Color YELLOW 09/13/2024 9:03 PM CDT [facility] Total Nucleated Cells Fluid 279 Reference Range Not Established x10E6/L 09/13/2024 9:03 PM CDT [facility] RBC Count Fluid <2,000 Reference Range Not Established x10E6/L 09/13/2024 9:03 PM CDT [facility] Fluid PERITONEAL FLUID / Unknown Collection / Unknown 09/13/2024 8:08 PM CDT 09/13/2024 8:10 PM CDT Narrative [facility] - 09/13/2024 9:03 PM CDT No reference ranges established for body fluid cell counts. Any reference ranges provided are derived from published literature. The test results must be integrated into the clinical context for interpretation. us Alexis Rodrigez III, MD LAB - BODY FLUID ORDERA BLES Final Result Performing Organization Address City/[facility]/ZIP Co de Phone Number [facility] [address] [place] [address], [place] [phone] * VAS Bilateral Venous Duplex Le (09/13/2024 4:34 PM CDT) Anatomical Region Laterality Modality Lower Extremity Ultrasound 09/13/2024 4:18 PM CDT Narrative Procedure Note Lalit Castanon MD - 09/13/2024 us Alexis Rodrigez III, MD VASCULAR LAB ORDERABLES Edited Result - Final * SARS-COV-2 (COVID-19) RAPID (09/13/2024 6:02 AM CDT) COVID-19 PCR Not detected Not detected 09/14/19 6:36 AM CDT [facility] Microbiology SPECIMEN FROM NASOPHARYNGEAL STRUCTURE / Unknown Collection / Unknown 09/13/2024 6:02 AM CDT 09/13/2024 6:04 AM CDT Narrative [facility] - 09/13/2024 6:36 AM CDT [facility]epheid [...] LAB - MICROBIOLOGY ORDERABLE S Final Result [address] [address] [phone] * TRANSFUSE RED BLOOD CELL LEUKOREDUCED UNIT(S) [...] > Dictated by Sera Chowdhury Dr, MD (radiology equipment servicer). ITerry MD have personally reviewed and interpreted this examination/study. > Interpreting Provider: Terry Ramos MD on 09/13/2024 9:42 AM Narrative 09/13/2024 9:42 AM CDT PROCEDURE: CT ANGIO AORTA FOR DISSECTION, DATE/TIME OF EXAM: 09/13/2024 12:28 AM, LOCATION [facility] INDICATION: R10.9: Abdominal pain, unspecified abdominal location [...] DATE/TIME OF EXAM: 09/13/2024 12:28 AM, LOCATION [facility] INDICATION: R10.9: Abdominal pain, unspecified abdominal location [...] > Dictated by Sera Chowdhury Dr, MD (radiology equipment servicer). I, E. Constantino Ramos MD have personally reviewed and interpreted this examination/study. > Interpreting Provider: Terry Ramos MD on 09/13/2024 9:42 AM Yuriy Lopez MD CT ORDERABLES Final Result * PREPARE (CROSSMATCH) RBC UNIT(S), 1 Units (09/12/2024 11:30 PM CDT) Unit Description AS1 LR PRBC [facility] Unit ABO O [facility] Unit Rh NEG [facility] Product Number R43 [facility] B LOOD [facility] Unit Donor # [id number] [facility] Unit Status transfused [facility] B[facility] OD [facility] Product Code [id number] [facility] OD [facility] Blood Type Barcode 9500 [facility] Expiration Date S BLOOD BANK LAB Blood Bank BLOOD SPECIMEN / Unknown 09/12/2024 11:30 PM CDT 09/12/2024 11:37 PM CDT Yuriy Lopez MD LAB - BLOOD BANK ORDERABLES Final Result Performing Organization Address [facility]/ZIP Co de Phone Number [facility] [address] [place] [address], [place] [phone] * TYPE + SCREEN PANEL (09/12/2024 11:30 PM CDT) Antibody Screen NEG 12:16 AM CDT [facility] ABO Rh O NEG 09/13/2024 12:16 AM CDT [facility] Blood Bank BLOOD SPECIMEN / Unknown Venipuncture / Unknown 09/12/2024 11:30 PM CDT 09/12/2024 11:37 PM CDT Yuriy Lopez MD LAB - BLOOD BANK ORDERABLES Final Result Performing Organization Address [facility] Co de Phone Number [facility] [facility] [address] [place] [address], [place] [phone] * CULTURE BLOOD (09/12/2024 10:00 PM CDT) Only the most recent of4 resultswithin the time period is included. Culture No growth day 5 MUSHTAQ 09/18/2024 1:30 AM CDT [facility]CRO[facility] Blood PERIPHERAL BLOOD / Unknown Venipuncture / Unknown 09/12/2024 10:00 PM CDT 09/12/2024 10:21 PM CDT Yuriy Lopez MD LAB - MICROBIOLOGY ORDERABLE S Final Result Performing Organization Address City/[facility]/ZIP Co de Phone Number [facility] [address] [place] [address], [place] [phone] * (ABNORMAL) BASIC METABOLIC PANEL (CALCIUM TOTAL) (09/08/2024 10:45 AM CDT) Only the most recent of6 resultswithin the time period is included. BUN 46(H) 7 - 26 mg/dL 09/08/2024 11:55 AM [facility] Creatinine 10.97(H) 0.71 - 1.16 mg/dL 09/08/2024 11:55 AM [facility] Sodium 142 136 - 145 mmol/L 09/08/2024 11:55 AM [facility] Potassium 4.4 3.5 - 4.5 mmol/L 09/08/2024 11:55 AM [facility] Chloride 104 98 - 107 mmol/L 09/08/2024 11:55 AM [facility] CO2 25 22 - 29 mmol/L 09/08/2024 11:55 AM [facility] Glucose 112(H) 70 - 99 mg/dL 09/08/2024 11:55 AM [facility] Calcium 8.9 8.4 - 10.2 mg/dL 09/08/2024 11:55 AM [facility] Anion Gap 13 6 - 16 09/08/2024 11:55 AM [facility] BUN/Creatinine Ratio 4(L) 7 - 23 09/08/2024 11:55 AM [facility] Osmolality Calculated 307(H) 275 - 295 mOsm/kg 09/08/2024 11:55 AM [facility] eGFR by CKD-EPI 5(L) >=90 mL/min/1.7 3 m2 09/08/2024 11:55 AM [facility] Comment:Estimated Glomerular Filtration Rate (eGFR) calculated using the CKD-EPI Creatinine Equation (2020), per the National Kidney Foundation and [place] Society of Nephrology recommendations. Blood BLOOD SPECIMEN / Unknown Lab Venipuncture / Unknown 09/08/2024 10:45 AM CDT 09/08/2024 11:26 AM [facility] us Mellissa Freitas PA-C LAB - CHEMISTRY ORDERABLES Final Result [facility] [address] [place] [address], [place] [phone] * VAS Bilateral Venous Mapping (09/07/2024 2:24 [...] thickening. Report dictated by Freddie Durham MD, (Digital Print Operator). I, Junior Hurley MD have personally reviewed [...] thickening. Report dictated by Freddie Durham MD, (Digital Print Operator). I, Junior Hurley MD have personally reviewed and interpreted this examination/study. > Interpreting Provider: Junior Hurley MD on 56:26 AM Charmaine Khalil MD CT ORDERABLES Final Result * (ABNORMAL) POTASSIUM WHOLE BLD (09/01/2024 3:54 PM CDT) Potassium Whole Blood 3.1(L) 3.5 - 5.5 mmol/L 09/01/2024 4:05 PM CDT [facility] Blood WHOLE BLOOD SPECIMEN / Unknown Venipuncture / Unknown 09/01/2024 3:54 PM CDT 09/01/2024 3:57 PM CDT Jaqueline Crews RADIOLOGIC TECH-SHIPPING AND RECEIVING CLERK LAB - CHEMISTRY ORDERABL ES Final Result [facility] [address] [place] [address], [facility] [phone] * CCL STAGED PERC CORONARY INTERVENTION, CCL [...] 6Fr 1.25Mm Diamondback catheter and using a [facility] Diamondback 360 Viperwire Adv wire. 2 [...] Recommend continuing [facility] Cardiology clinic f/u Jaqueline Sunny Crews RADIOLOGIC TECH-SHIPPING AND RECEIVING CLERK CV CARDIAC CATH CUPID HI [facility] Final Result * (ABNORMAL) IRON + TRANSFERRIN PANEL (08/19/2024 1:41 AM CDT) Iron 40(L) 50 - 175 ug/dL 08/19/2024 2:17 AM CDT [facility] Transferrin 116(L) 174 - 382 mg/dL 08/19/2024 2:17 AM CDT [facility] Transferrin Saturation % 28 16 - 50 % 08/19/2024 2:17 AM CDT [facility] TIBC Calculated 145(L) 240 - 450 ug/dL 08/19/2024 2:17 AM CDT [facility] Blood BLOOD SPECIMEN / Unknown Lab Venipuncture / Unknown 08/19/2024 1:41 AM CDT 08/19/2024 2:01 AM CDT Result [facility] Hannah Goodman MD LAB - CHEMISTRY ORDERABLES F inal Result Performing Organization Address [facility]/ZIP Co de Phone Number [address] [address], [place] [phone] * (ABNORMAL) FERRITIN (08/19/2024 1:41 AM CDT) Ferritin 560(H) 22 - 275 ng/mL 08/19/2024 2:35 AM CDT [facility] Blood BLOOD SPECIMEN / Unknown Lab Venipuncture / Unknown 08/19/2024 1:41 AM CDT 08/19/2024 2:01 AM CDT Hannah Goodman MD LAB - CHEMISTRY ORDERABLES F inal Result [address] [address], [facility] [phone] * VITAMIN D 25-HYDROXY (08/19/2024 1:23 AM CDT) Vitamin D, 25 Hydroxy 36.2 30.0 - 80.0 ng/mL 08/19/2024 2:24 AM CDT [facility] Comment: The recommendations for 25-Hydroxy Vitamin [...] LAB - CHEMISTRY ORDERABLES F inal Result [address] [address], [facility] [phone] * CCL PERIPHERAL ANGIOGRAM (08/18/2024 2:33 PM CDT) Anatomical Region Laterality Modality X-Ray Angiograph y Narrative 08/19/2024 2:24 PM CDT Left leg angiogram showed left AT severe diffuse disease with multiple subtotal occlusion and left PT severe diffuse disease with SEASONAL WAREHOUSE ASSOCIATE of distal PT without clear reconstitution. Successful [...] 0.018 CXI microcatheter with multiple wires(Command 18/command 14/Management Specialist 200) to get to great toe branch of dorsalis pedis using aircraft pilot [address]. - the AT-DP lesion was dilated with balloons mentioned in figure. - We turn our attention to PT. We crossed the PT SEASONAL WAREHOUSE ASSOCIATE with 0.018 CXI microcatheter with multiple wires (command 18, command 14, Management Specialist 200) and able to go to [...] using angiography. Left Posterior Tibial: Ost L FIRE BATTALION CHIEF to Dist L FIRE BATTALION CHIEF lesion is 100% stenosed. Stenosis was measured [...] 10% residual stenosis post intervention. Ost L FIRE BATTALION CHIEF to Dist L FIRE BATTALION CHIEF lesion: Angioplasty: Angioplasty independent of stent deployment [...] of Plavix. -recommend close follow up with auto hiker and follow up with me in clinic with JOSIANE/TBI. Hannah Goodman MD CV INVASIVE VASCULAR AND IR CUPID PROC Final Result * ACT LR - POCT ([facility]) (08/18/2024 2:08 PM CDT) Only the most recent of4 resultswithin the time period is included. [facility] ACT LR 231 See result comments sec 08/19/2024 9:02 AM CDT [facility] Blood BLOOD SPECIMEN / Unknown 08/18/2024 2:08 PM CDT 08/19/2024 9:02 AM CDT Narrative [facility] - 08/19/2024 9:02 AM CDT ACT-LR Therapeutics ranges are: Cardiac laborer vegetable farm = 200-300 seconds Sheath pull = ACT [...] MD LAB - COAGULATION ORDERABLES Final Result [address] [address], [facility] [phone] * MRI ABDOMEN WWO CONTRAST (08/04/2024 12:24 [...] cysts. Report dictated by Alan Cole MD (radiology equipment servicer). ITerry MD have personally reviewed and interpreted [...] of the left kidney, not significantly changed, [id number] image 49, series 16 image 41. A [...] cysts. Report dictated by Alan Cole MD (radiology equipment servicer). ITerry MD have personally reviewed and interpreted this examination/study. > Interpreting Provider: Terry Ramos MD on 08/04/2024 6:23 PM us Thomas Mendoza MD MR ORDERABLES Final Resu lt * HEPATITIS C ANTIBODY (06/16/2024 4:15 PM CDT) Hepatitis C Antibody Non-react sylvie Non-reac tive 06/16/2024 5:50 PM CDT [facility] Comment:Hepatitis C Antibody screen indicates no [...] CHEMISTRY ORDERABLES nal Result Performing Organization Address [facility] de Phone Number [address] [address], [facility] [phone] from Last 3 Months or Most Recently Relevant to Health Maintenance Insurance [facility] [place] [address] AETNA AETNA MEDICARE ADV [facility] [place] [address] * Guarantor: GRACE INTERIANO Account Type Relation to Patient Date of Phone Billing Address Personal/Family [phone] * Guarantor: GRACE INTERIANO Account Type Relation to Patient Date of Phone Billing Address Personal/Family [facility] [place] [address] Advance Directives * Full Code (Latest Code [...] 3:16 PM 08/19/2024 4:36 PM Care Teams Cutting Inspector Relationship Specialty Start Date End Date Jeff Strickland MD [address] [place] [address] PCP - General 03/05/18 [place] [address] [address] Orthopedic Surgery 03/28/17
--- OUTSIDE RECORDS SUMMARY | 2024-10-30 20:43 | XMS_ITS | Clinical Summary ---
Author Organization [facility] milligan Address [address] [address] Phone Care Team Providers Care Fruit Or Nut Crops Farm Manager Name Role Phone Jeff Strickland MD Primary Care Provider [phone] Allergies No known active allergies Medications levothyroxine [...] tablet 3 0 Active Continuous Blood Gluc Video Editor (FreeStyle Em Canterbury) device 1 each daily 0 Active Continuous Blood Gluc Sensor (FreeStyle Em Sensor System) misc 1 each once every 2 weeks 0 Active Lancets (OneTouch Delica Plus Aauzja22T) misc OneTouch Delica Plus Lancet 33 gauge [...] 11/10/2019 Overview (12/17/2019): Kendall Carl 1955 Referring Kitchen Designer: Alan Mccall Dialysis Info: NOD GFR 13 Type: Time: (Not currently on dialysis) days Blood Type: O NEG Body mass index is 37.36 kg/m . ALERTS Vulcanizer Rubber Plate: needs to establish Past Medical History: Diagnosis Date Arthropathy RA. Dr Strickland manages. 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 Becerra in [place]. CKD (chronic kidney disease), stage V Community acquired pneumonia 2018 [facility] hospitalized. Diabetes mellitus 20 years. Lantus pen. Esophageal reflux takes med Hypercholesteremia 5-10 yrs meds Hypertension takes meds Hypothyroidism meds 20 years Kidney stones 5-6 years ago had 2 in the same year. Malignancy right kidney 2012 Obstructive sleep apnea 3 years. [facility]. Angela remember doctors name Renal cell [...] It is the impression of this social studies teacher that Kendall Gillris has several positive factors for Kidney transplant candidacy from a psychosocial perspective. Patient appears to have appropriate knowledge of illness. Patient has sufficient insurance coverage and stable financial situation for post transplant needs. No concerns regarding substance abuse, legal issues, or mental health needs. Patient has adequate support system and appropriate discharge plan. Plan: medical social worker to provide supportive services as needed. Patient appears to be a reasonable candidate for transplant from a psychosocial perspective. -Post transplant arrangement forms are needed prior to being listed. -Updated toxicology results needed, per protocol Psychiatric Consult Recommended: No Transplant Staking Press Operator: Joy Tam LCSW RD: 11/09/2019 BMI= [...] nephrectomy. 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 [id number] Immunizations Immunization Administration Dates Next Due Influenza [...] Insurance AETNA PM INTERFACED INSURANCE Care Teams Fruit Or Nut Crops Farm Manager Relationship Specialty Start Date End Date Jeff Strickland MD [address] [facility] [address] [facility] [address] [place] [address] PCP - General Internal Medicine 07/15/18
--- OUTSIDE RECORDS SUMMARY | 2024-10-30 20:43 | XMS_ITS | Encounter Summary ---
Author Organization [facility] Address [address] [place] [address] Phone Care Team Providers Care Certified Ski Patroller Name Role Phone Jeff Strickland MD Primary Care Provider Chan Nicholas MD Unavailable Alan Mccall MD Unavailable [phone] Lorna Lantigua MD Unavailable Juliette Savage RN Unavailable [phone] Pepito Haro MD PhD Unavailable Solange Guido MD Unavailable Letha Gil RN Unavailable [phone] Encounter Details Date Type Department Care Team (Late st Contact Info) Description 05/02/2021 Ophth Exam [facility] Medicine Ophthalmology [address] [place] [address] 1st [place] [address] Corina Ventura MD PhD [address] [address] Social History Tobacco Use Types [...] on file Legal Sex Male 2:23 AM TERMINOLOGIST Gender Identity Not on file Sexual Orientation [...] COVID: Suspected 03/24/2023 03/24/2023 03/24/2023 5:45 PM TERMINOLOGIST COVID19 03/24/2023 03/24/2023 04/08/2023 3:06 AM TERMINOLOGIST COVID: Recovered Comment:Added based on recent COVID infection. 04/08/2023 04/10/2023 07/07/2023 3:06 AM C DT COVID: Suspected 04/10/2024 04/10/2024 04/11/2024 1:24 AM TERMINOLOGIST C. difficile suspected 04/11/2024 04/11/202404/11 1:21 PM TERMINOLOGIST documented as of this encounter Eye Exam [...] arcade Normal Periphery Normal Normal Care Teams Certified Ski Patroller Relationship Specialty Start Date End Date Jeff Strickland MD [address] [address] PCP - General Family Medicine 04/02/18 Chan Nicholas MD [address] [place] [address] [id number] Consulting Physician Gastroenterology 11/24/18 Alan Mccall MD [address] [place] [address] [address] Referring Physician Nephrology 11/24/18 Lorna Lantigua MD [facility] [address] [address] Consulting Physician Cardiology 11/24/18 07/22/23 Juliette Savage, RN [address] [place] [address] Nurse Navigator 06/04/21 03/14/22 Pepito Haro MD PhD [address] [place] [address] Consulting Physician Neurosurgery 12/03/22 Solange Guido MD [address] [facility] [address] [place] [address] Referring Physician Cardiovascular Disease 07/23/23 Letha Gil, RN [address] [facility] [address] [place] [address] SHOP Outpatient Car Scrubber 04/14/24 04/18/24 documented as of this encounter
--- OUTSIDE RECORDS SUMMARY | 2024-10-30 20:43 | XMS_ITS | Encounter Summary ---
Author Organization [facility] Address [address] [facility] [place] [address] Care Team Providers Care Custom Leather Products Maker Name Role Phone Deandre Bojorquez MD Unavailable [phone] Jeff Strickland MD Primary Care Provider [phone] Reason for Visit * Reason Onset Date Comments Post-Op 09/03/2024 Encounter Details Date Type Department Care Team (Late st Contact Info) Description 09/03/2024 Telephone [facility] - Cardiology [address] [facility], [facility] [address] [place] [address] Hannah Goodman MD [address] [facility] [address] [place] [address] Post-Op Social History Tobacco Use Types Packs/Day [...] and heating? Not hard at all 09/04/2024 [facility] Occupat ional Health - Occupational Stress [...] time in the past 12 m [facility] [place], were you homeless or living in a jail (including now)? No 09/04/2024 Sex and Gender Information Value Date Recorded Sex Assigned at Male 07/02/2021 2:37 PM CDT Legal Sex Male 10:14 PM OUTPATIENT PROGRAM COORDINATOR Gender Identity Male 07/02/2021 2:37 PM CDT [...] confused post op Patient Call Back number: [phone] documented in this encounter Plan of Treatment Upcoming Encounters Date Type Department Care Team (Late st Contact Info) Description 12/06/2024 10:40 AM CDT Office Visit [facility] - Endocrinology [facility] [facility], [place] [phone] Marbin Flores MD [address] [facility] DIV [place] [address] Niraj Turner MD [address] [facility] 2L [place] [address] documented as of this encounter Visit Diagnoses Not on filedocumented in this encounter Additional Health Concerns Infection Onset Date Last Indicated Resolved Time COVID-19 Under Investigation 09/13/2024 09/13/2024 09/13/2024 6:36 AM CDT documented as of this encounter Care Teams Custom Leather Products Maker Relationship Specialty Start Date End Date Jeff Strickland MD [address] [place] [address] PCP - General 03/05/18 [place] [address] [address] Orthopedic Surgery 03/28/17 documented as of this encounter
--- OUTSIDE RECORDS SUMMARY | 2024-10-30 20:43 | XMS_ITS | Encounter Summary ---
Author Organization [facility] Address [address] [place] [address] Care Team Providers Care Staff Field Engineer Name Role Phone Deandre Bojorquez MD Unavailable [phone] Jeff Strickland MD Primary Care Provider [phone] Encounter Details Date Type Department Care Team (Late st Contact Info) Description 02/04/2024 Lab Requisition [facility] [address] [place] [id number] Alan Davenport MD [facility] OF [place] [address] Social History Tobacco Use Types Packs/Day Years Used Date Smoking Tobacco: Never Smokeless Tobacco: Never Alcohol Use Standard Drinks/Week Comments Not Currently 0 (1 standard drink = 0.6 oz pur e alcohol) socially in past Sex and Gender Information Value Date Recorded Sex Assigned at Male 07/02/2021 2:37 PM CDT Legal Sex Male 10:14 PM DENSITOMETER READER Gender Identity Male 07/02/2021 2:37 PM CDT Sexual Orientation Straight 07/02/2021 2: 37 PM CDT documented as of this encounter Functional Status * Is person deaf or have serious hearing difficulty? Answer Date of Assessment Author No 08/04/2020 12:15 PM CDT Monique Suárez RN * Is person blind or have serious difficulty seeing? Answer Date of Assessment Author No 08/04/2020 12:15 PM CDT Monqiue Suárez RN * Does person have serious [...] Description 12/06/2024 10:40 AM CDT Office Visit [facility] - Endocrinology [address] [facility], [place] [address] Marbin Flores MD [address] [facility] DIV OF [place] [address] Niraj Turner MD [address] [facility] [address]L [place] [address] documented as of this encounter Procedures Procedure Name Priority Date/Time Associated Diagnosis Comments HOLD HLA SPECIMEN Routine 01/27/2024 3:2 3 PM DENSITOMETER READER documented in this encounter Results * HOLD HLA SPECIMEN (01/27/2024 3:23 PM DENSITOMETER READER) Hold HLA Specimen 02/04/2024 4:31 PM DENSITOMETER READER [facility] Comment:The Hold HLA specime n has been received into the lab and will be held for 5 years at 4 degrees. Blood BLOOD SPECIMEN / Unknown 01/27/2024 3:23 PM DENSITOMETER READER 02/04/2024 3:23 PM DENSITOMETER READER Alan Davenport MD LAB - BLOOD BANK ORDERABLES F inal Result [facility] [address] [place] [address], [facility] documented in this encounter Visit Diagnoses Not on filedocumented in this encounter Additional Health Concerns Infection Onset Date Last Indicated Resolved Time COVID-19 Under Investigation 09/13/2024 09/13/2024 09/13/2024 6:36 AM CDT documented as of this encounter Care Teams Staff Field Engineer Relationship Specialty Start Date End Date Jeff Strickland MD [address] [place] [address] PCP - General 03/05/18 [place] [address] [address] Orthopedic Surgery 03/28/17 documented as of this encounter
--- OUTSIDE RECORDS SUMMARY | 2024-10-30 20:43 | XMS_ITS | Clinical Summary ---
Author Organization [facility] Address [address] [place] [address] Phone Care Team Providers Care Newspaper Journalist Name Role Phone Jeff Strickland MD Primary Care Provider [phone] Allergies No known active allergies Medications pantoprazole [...] Take 112 mcg by mouth daily early childhood assistant. Active aspirin (ANGELLA) 325 mg tablet Take 325 mg by mouth daily. Active Vit C-Vit A-Wqkavf-MuQr-L utein (PRESERVISION) 226 mg-200 unit -5 mg-0.8 [...] Comments Blood Pressure 167/77 02/04/2019 9:16 AM CARPET INSPECTOR Pulse 64 02/04/2019 9:16 AM CARPET INSPECTOR Temperature 36.5 C (97.7 F) 02/04/2019 9:16 AM CARPET INSPECTOR Respiratory Rate 16 02/04/2019 9:16 AM CARPET INSPECTOR Oxygen Saturation 97% 02/04/2019 9:16 AM CARPET INSPECTOR Inhaled Oxygen Concentration - - Weight 113.4 kg (250 lb) 02/04/2019 9:16 AM CARPET INSPECTOR Height 175.3 cm (5' 9) 02/04/2019 9:16 AM CARPET INSPECTOR Body Mass Index 36.92 02/04/2019 9:16 AM CARPET INSPECTOR Plan of Treatment Health Maintenance Due Date [...] ACCESS/TRUE BLUE PPO AETNA MEDICARE SUPPLEMENT PPO [facility] BLUE ACCESS/TRUE BLUE PPO Care Teams Newspaper Journalist Relationship Specialty Start Date End Date Jeff Strickland MD [address] [facility] [address] [place] [address] PCP - General Family Practice 01/01/19
--- OUTSIDE RECORDS SUMMARY | 2024-10-30 20:43 | XMS_ITS | Encounter Summary ---
Author Organization [facility] Address [facility] [place] [address] Care Team Providers Care Transportation Broker Name Role Phone Deandre Bojorquez MD Unavailable [phone] Jeff Strickland MD Primary Care Provider [phone] Encounter Details Date Type Department Care Team (Late st Contact Info) Description 04/29/2024 Lab Requisition [facility] [address] [place] [id number] Alan Davenport MD [facility] [facility] OF [place] [address] Social History Tobacco Use Types Packs/Day Years Used Date Smoking Tobacco: Never Smokeless Tobacco: Never Alcohol Use Standard Drinks/Week Comments Not Currently 0 (1 standard drink = 0.6 oz pur e alcohol) socially in past Sex and Gender Information Value Date Recorded Sex Assigned at Male 07/02/2021 2:37 PM CDT Legal Sex Male 10:14 PM DIRECTOR OF ADULT EPILEPSY Gender Identity Male 07/02/2021 2:37 PM CDT [...] Visit [facility] - Endocrinology [address] [facility], [place] [address] Marbin Flores MD [address] [facility] DIV OF [place] [address] Niraj Turner MD [address] [facility] [address]L [place] [address] documented as of this encounter Procedures Procedure Name Priority Date/Time Associated Diagnosis Comments HOLD HLA SPECIMEN Routine 04/27/2024 1:4 8 PM CDT documented in this encounter Results * HOLD HLA SPECIMEN (04/27/2024 1:48 PM CDT) Hold HLA Specimen 04/29/2024 3:02 PM CDT [facility] Comment:The Hold HLA specime n has been received into the lab and will be held for 5 years at 4 degrees. Blood BLOOD SPECIMEN / Unknown 04/27/2024 1:48 PM CDT 04/29/2024 1:49 PM CDT Alan Davenport MD LAB - BLOOD BANK ORDERABLES F inal Result [facility] [address] [place] [address], [facility] documented in this encounter Visit Diagnoses Not on filedocumented in this encounter Additional Health Concerns Infection Onset Date Last Indicated Resolved Time COVID-19 Under Investigation 09/13/2024 09/13/2024 09/13/2024 6:36 AM CDT documented as of this encounter Care Teams Transportation Broker Relationship Specialty Start Date End Date Jeff Strickland MD [address] [place] [address] PCP - General 03/05/18 [place] [address] [facility] [address] [place] [address] Orthopedic Surgery 03/28/17 documented as of this encounter
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
--- OUTSIDE RECORDS SUMMARY | 2024-10-30 20:43 | XMS_ITS | Encounter Summary ---
Author Organization [facility] Address [address] [place] [address] Care Team Providers Care Painter Rough Name Role Phone Deandre Bojorquez MD Unavailable [phone] Jeff Strickland MD Primary Care Provider [phone] Encounter Details Date Type Department Care Team (Late st Contact Info) Description 07/31/2023 Lab Requisition [facility] [address] [place] [phone] Alan Davenport MD [facility] OF [place] [address] Social History Tobacco Use Types Packs/Day Years Used Date Smoking Tobacco: Never Smokeless Tobacco: Never Alcohol Use Standard Drinks/Week Comments Not Currently 0 (1 standard drink = 0.6 oz pur e alcohol) socially in past Sex and Gender Information Value Date Recorded Sex Assigned at Male 07/02/2021 2:37 PM CDT 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 Gender Identity Male 07/02/2021 2:37 PM [...] 12/06/2024 10:40 AM CDT Office Visit [facility] - Endocrinology [address] [facility], [place] [address] Marbin Flores MD [address] [facility] DIV [place] [address] Niraj Turner MD [address] [facility] 2L [place] [address] documented as of this encounter Procedures Procedure Name Priority Date/Time Associated Diagnosis Comments HOLD HLA SPECIMEN Routine 07/23/2023 2:0 5 PM CDT documented in this encounter Results * HOLD HLA SPECIMEN (07/23/2023 2:05 PM CDT) Hold HLA Specimen 07/31/2023 3:32 PM CDT [facility] Comment:The Hold HLA specime n has been received into the lab and will be held for 5 years at 4 degrees. Blood BLOOD SPECIMEN / Unknown 07/23/2023 2:05 PM CDT 07/31/2023 2:06 PM CDT Alan Davenport MD LAB - BLOOD BANK ORDERABLES F inal Result [facility] [address] [place] [address], [facility] documented in this encounter Visit Diagnoses Not on filedocumented in this encounter Additional Health Concerns Infection Onset Date Last Indicated Resolved Time COVID-19 Under Investigation 09/13/2024 09/13/2024 09/13/2024 6:36 AM CDT documented as of this encounter Care Teams Painter Rough Relationship Specialty Start Date End Date Jeff Strickland MD [address] [place] [address] PCP - General 03/05/18 [place] [address] [place] [address] Orthopedic Surgery 03/28/17 documented as of this encounter
--- OUTSIDE RECORDS SUMMARY | 2024-10-30 20:43 | XMS_ITS | Encounter Summary ---
Author Organization [facility] Address [facility] [place] [address] Care Team Providers Care Casting Assistant Name Role Phone Deandre Bojorquez MD Unavailable Jeff Strickland MD Primary Care Provider [phone] Encounter Details Date Type Department Care Team (Late st Contact Info) Description 11/21/2023 Lab Requisition [facility] [address] [place] [id number] Alan Davenport MD 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 Gender Identity Male 07/02/2021 2:37 PM CDT [...] Description 12/06/2024 10:40 AM CDT Office Visit [facility] - Endocrinology [address] [facility], [place] [address] Marbin Flores MD [address] [facility] DIV [place] [address] Niraj Turner MD [address] [facility] 2L [place] [address] documented as of this encounter Procedures Procedure [...] F inal Result [facility] [address] [place] [address], [facility] documented in this encounter Visit Diagnoses Not on filedocumented in this encounter Additional Health Concerns Infection Onset Date Last Indicated Resolved Time COVID-19 Under Investigation 09/13/2024 09/13/2024 09/13/2024 6:36 AM CDT documented as of this encounter Care Teams Casting Assistant Relationship Specialty Start Date End Date Jeff Strickland MD [address] [place] [address] PCP - General 03/05/18 [place] [address] [place] [address] Orthopedic Surgery 03/28/17 documented as of this encounter
--- OUTSIDE RECORDS SUMMARY | 2024-10-30 20:43 | XMS_ITS | Clinical Summary ---
Author Organization [facility] Address [facility] [place] [address] Care Team Providers Care Heart Specialist Name Role Phone Jeff Strikcland MD Primary Care Provider [phone] Allergies Active Allergy Reactions Criticality Noted Date [...] by mouth nightly at bedtime. 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
--- OUTSIDE RECORDS SUMMARY | 2024-10-30 20:43 | XMS_ITS | Encounter Summary ---
Author Organization [facility] Address [address] [place] [address] Care Team Providers Care Cleaning Professional Name Role Phone Jeff Strickland MD Primary Care Provider Chan Nicholas MD Unavailable [phone] Alan Mccall MD Unavailable [phone] Pepito Haro MD PhD Unavailable Solange Giudo MD Unavailable [phone] Encounter Details Date Type Department Care Team (Late st Contact Info) Description 07/28/2024 Orders Only [facility] Health Information Management [address] [place] [address] Scanning, Provider Social History Tobacco Use Types Packs/Day Years Used Date Smoking Tobacco: Never Smokeless Tobacco: Never Alcohol Use Standard Drinks/Week Comments Yes 0 (1 standard drink = 0.6 oz pur e alcohol) rarely [facility] Utilities Answer Date Recorded In the past 12 months has [employer] electric, gas, oil, or water company threatened [...] any clubs o r organizations such as jewish groups, unions, fraternal or athletic groups, or [...] on file 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 Gender Identity Not on file Sexual Orientation [...] filedocumented in this encounter Care Teams Cleaning Professional Relationship Specialty Start Date End Date Jeff Strickland MD [facility] [address] [place] [id number] PCP - General Family Medicine 04/02/18 Chan Nicholas MD [facility] [address] [address] Consulting Physician Gastroenterology 11/24/18 Alan Mccall MD [facility] [address] [address] Referring Physician Nephrology 11/24/18 Pepito Haro MD PhD [address] [place] [address] Consulting Physician Neurosurgery 12/03/22 Solange Guido MD [address] [facility] [address] [place] [address] Referring Physician Cardiovascular Disease 07/23/23 documented as of this encounter
--- OUTSIDE RECORDS SUMMARY | 2024-10-30 20:43 | XMS_ITS | Encounter Summary ---
Author Organization [facility] Address [address] [place] [address] Care Team Providers Care Salicylic Acid Blender Name Role Phone Deandre Bojorquez MD Unavailable [phone] Jeff Strickland MD Primary Care Provider [phone] Encounter Details Date Type Department Care Team (Late st Contact Info) Description 09/24/2024 Results Follow-Up [facility] Early Admission Unit [address] [place] [phone] Angel Crook MD [address] [place] [address] Social History Tobacco Use Types Packs/Day Years [...] and heating? Not hard at all 09/24/2024 [facility] of Occupat ional Health - Occupational Stress [...] any time in the past [address] [facility], were you homeless or living in a nursing home (including now)? 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 Gender Identity Male 07/02/2021 2:37 PM [...] Date Author No 09/24/2024 5:33 AM Francy Falrey RN documented in this encounter Plan of Treatment Upcoming Encounters Date Type Department Care Team (Late st Contact Info) Description 12/06/2024 10:40 AM CDT Office Visit [facility] Group - Endocrinology [address] [place] [address], [place] [address] Marbin Flores MD [address] [facility] DIV [place] [address] Niraj Turner MD [address] [facility] 2L [place] [address] documented as of this encounter Visit Diagnoses Not on filedocumented in this encounter Care Teams Salicylic Acid Blender Relationship Specialty Start Date End Date Jeff Strickland MD [address] [place] [address] PCP - General 03/05/18 [place] [address] [place] [address] Orthopedic Surgery 03/28/17 documented as of this encounter
--- OUTSIDE RECORDS SUMMARY | 2024-10-30 20:43 | XMS_ITS | Encounter Summary ---
Author Organization [facility] Address [address] [place] [address] Care Team Providers Care Furnace Combustion Analyst Name Role Phone Jeff Strickland MD Primary Care Provider Chan Nicholas MD Unavailable [phone] Alan Mccall MD Unavailable [phone] Ppeito Haro MD PhD Unavailable [phone] Solange Guido MD Unavailable [phone] Encounter Details Date Type Department Care Team (Late st Contact Info) Description 07/26/2024 Orders Only [facility] Health Information Management [address] [place] [address] Scanning, Provider Social History Tobacco Use Types Packs/Day Years Used Date Smoking Tobacco: Never Smokeless Tobacco: Never Alcohol Use Standard Drinks/Week Comments Yes 0 (1 standard drink = 0.6 oz pur e alcohol) rarely [facility] Utilities Answer Date Recorded In the past 12 months has [employer] electric, gas, oil, or water company threatened [...] on file 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 Gender Identity Not on file Sexual Orientation [...] on filedocumented in this encounter Care Teams Furnace Combustion Analyst Relationship Specialty Start Date End Date Jeff Strickland MD [address] [place] [address] [address] [address] PCP - General Family Medicine 04/02/18 Chan Nicholas MD [facility] [address] [address] Consulting Physician Gastroenterology 11/24/18 Alan Mccall MD [address] [place] [address] [address] [address] Referring Physician Nephrology 11/24/18 Pepito Haro MD PhD [facility] [address] [place] [id number] Consulting Physician Neurosurgery 12/03/22 Solange Guido MD [address] [facility] [address] [place] [address] Referring Physician Cardiovascular Disease 07/23/23 documented as of this encounter
--- OUTSIDE RECORDS SUMMARY | 2024-10-30 20:43 | XMS_ITS | Encounter Summary ---
Author Organization [facility] Address [facility] [place] [address] Care Team Providers Care Video Producer Name Role Phone Deandre Bojorquez MD Unavailable [phone] Jeff Strickland MD Primary Care Provider Encounter Details Date Type Department Care Team (Late st Contact Info) Description 09/30/2023 Lab Requisition [facility] [address] [place] [id number] Alan Davenport MD [facility]1 [facility] [place] [address] Social History Tobacco Use Types Packs/Day Years Used Date Smoking Tobacco: Never Smokeless Tobacco: Never Alcohol Use Standard Drinks/Week Comments Not Currently 0 (1 standard drink = 0.6 oz pur e alcohol) socially in past Sex and Gender Information Value Date Recorded Sex Assigned at Male 07/02/2021 2:37 PM CDT 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 Gender Identity Male 07/02/2021 2:37 PM CDT [...] [facility] [address] [facility], [place] [address] Marbin Flores MD [address] [facility] DIV [place] [address] Niraj Turner MD 1225 [facility] 2L [place] [address] documented as of this encounter Procedures Procedure Name Priority Date/Time Associated Diagnosis Comments HOLD HLA SPECIMEN Routine 09/24/2023 3:2 7 PM CDT documented in this encounter Results * HOLD HLA SPECIMEN (09/24/2023 3:27 PM CDT) Hold HLA Specimen 09/30/2023 4:32 PM CDT [facility] ([facility]) Comment:The Hold HLA specime n has been received into the lab and will be held for 5 years at 4 degrees. Blood BLOOD SPECIMEN / Unknown 09/24/2023 3:27 PM CDT 09/30/2023 3:27 PM CDT Alan Davenport MD LAB - BLOOD BANK ORDERABLES F inal Result [facility] ([facility]) [address] [place] [address], [place] documented in this encounter Visit Diagnoses Not on filedocumented in this encounter Additional Health Concerns Infection Onset Date Last Indicated Resolved Time COVID-19 Under Investigation 09/13/2024 09/13/2024 09/13/2024 6:36 AM CDT documented as of this encounter Care Teams Video Producer Relationship Specialty Start Date End Date Jeff Strickland MD [address] [place] [address] PCP - General 03/05/18 [place] [address] [place] [address] Orthopedic Surgery 03/28/17 documented as of this encounter
--- OUTSIDE RECORDS SUMMARY | 2024-10-30 20:43 | XMS_ITS | Encounter Summary ---
Author Organization [facility] Address [address] [place] [address] Care Team Providers Care Surface Water Technician Name Role Phone Deandre Bojorquez MD Unavailable [phone] Jeff Strickland MD Primary Care Provider [phone] Encounter Details Date Type Department Care Team (Late st Contact Info) Description 10/28/2023 Lab Requisition [facility] MAIN LAB [address] [place] [id number] Alan Davenport MD [facility][note 3]1 [facility] [place] [address] Social History Tobacco Use Types Packs/Day Years Used Date Smoking Tobacco: Never Smokeless Tobacco: Never Alcohol Use Standard Drinks/Week Comments Not Currently 0 (1 standard drink = 0.6 oz pur e alcohol) socially in past Sex and Gender Information Value Date Recorded Sex Assigned at Male 07/02/2021 2:37 PM CDT 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 Gender Identity Male 07/02/2021 2:37 PM CDT [...] Description 12/06/2024 10:40 AM CDT Office Visit [facility] - Endocrinology [address] [facility], [place] [address] Marbin Flores MD 12[address] [facility] DIV [place] [address] Niraj Turner MD 1225 [facility] 2L [place] [address] documented as of this encounter Procedures Procedure Name Priority Date/Time Associated Diagnosis Comments HOLD HLA SPECIMEN Routine 10/22/2023 3:5 0 PM CDT documented in this encounter Results * HOLD HLA SPECIMEN (10/22/2023 3:50 PM CDT) Hold HLA Specimen 10/28/2023 5:00 PM CDT [facility] ([facility] Comment:The Hold HLA specime n has been received into the lab and will be held for 5 years at 4 degrees. Blood BLOOD SPECIMEN / Unknown 10/22/2023 3:50 PM CDT 10/28/2023 3:50 PM CDT Alan Davenport MD LAB - BLOOD BANK ORDERABLES F inal Result [facility] ([facility] [address] [place] [address], [facility] documented in this encounter Visit Diagnoses Not on filedocumented in this encounter Additional Health Concerns Infection Onset Date Last Indicated Resolved Time COVID-19 Under Investigation 09/13/2024 09/13/2024 09/13/2024 6:36 AM CDT documented as of this encounter Care Teams Surface Water Technician Relationship Specialty Start Date End Date Jeff Strickland MD [address] [place] [address] PCP - General 03/05/18 [place] [address] [place] [address] Orthopedic Surgery 03/28/17 documented as of this encounter
--- OUTSIDE RECORDS SUMMARY | 2024-10-30 20:43 | XMS_ITS | Encounter Summary ---
Author Organization [facility] Address [address] [place] [address] Care Team Providers Care Tool Grinder Set Up Operator Gear Name Role Phone Deandre Bojorquez MD Unavailable [phone] Jeff Strickland MD Primary Care Provider [phone] Encounter Details Date Type Department Care Team (Late st Contact Info) Description 06/25/2024 Lab Requisition [facility] MAIN LAB [address] [place] [phone] Alan Davenport MD [facility]1 [facility] OF ABD [place] [address] Social History Tobacco Use Types Packs/Day Years Used Date Smoking Tobacco: Never Smokeless Tobacco: Never Alcohol Use Standard Drinks/Week Comments Not Currently 0 (1 standard drink = 0.6 oz pur e alcohol) socially in past Sex and Gender Information Value Date Recorded Sex Assigned at Male 07/02/2021 2:37 PM CDT 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 2L [place] [address] documented as of this encounter Procedures Procedure Name Priority Date/Time Associated Diagnosis Comments HOLD HLA SPECIMEN Routine 06/22/2024 11: 05 AM CDT documented in this encounter Results * HOLD HLA SPECIMEN (06/22/2024 11:05 AM CDT) Hold HLA Specimen 06/25/2024 12:32 PM CDT [facility] ([facility]) Comment:The Hold HLA specime n has been received into the lab and will be held for 5 years at 4 degrees. Blood BLOOD SPECIMEN / Unknown 06/22/2024 11:05 AM CDT 06/25/2024 11:05 AM CDT Alan Davenport MD LAB - BLOOD BANK ORDERABLES F inal Result [facility] [address] [place] [address], [facility] documented in this encounter Visit Diagnoses Not on filedocumented in this encounter Additional Health Concerns Infection Onset Date Last Indicated Resolved Time COVID-19 Under Investigation 09/13/2024 09/13/2024 09/13/2024 6:36 AM CDT documented as of this encounter Care Teams Tool Grinder Set Up Operator Gear Relationship Specialty Start Date End Date Jeff Strickland MD [address] [place] [address] PCP - General 03/05/18 [place] [address] [place] [address] Orthopedic Surgery 03/28/17 documented as of this encounter
--- OUTSIDE RECORDS SUMMARY | 2024-10-30 20:43 | XMS_ITS | Encounter Summary ---
Author Organization [facility] Address [facility] [place] [address] Care Team Providers Care Manager Recruiting Name Role Phone Deandre Bojorquez MD Unavailable [phone] Jeff Strickland MD Primary Care Provider [phone] Encounter Details Date Type Department Care Team (Late st Contact Info) Description 03/30/2024 Lab Requisition [facility] MAIN LAB [address] [place] [phone] Alan Davenport MD [facility] [place] [address] Social History Tobacco Use Types Packs/Day Years Used Date Smoking Tobacco: Never Smokeless Tobacco: Never Alcohol Use Standard Drinks/Week Comments Not Currently 0 (1 standard drink = 0.6 oz pur e alcohol) socially in past Sex and Gender Information Value Date Recorded Sex Assigned at Male 07/02/2021 2:37 PM CDT 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 Gender Identity Male 07/02/2021 2:37 PM CDT [...] Description 12/06/2024 10:40 AM CDT Office Visit [facility] - Endocrinology [address] [facility], [place] [address] Marbin Flores MD [address] [facility] DIV [place] [address] Niraj Turner MD [address] [facility] 2L [place] [address] documented as of this encounter Procedures Procedure Name Priority Date/Time Associated Diagnosis Comments HOLD HLA SPECIMEN Routine 03/25/2024 2:5 1 PM CREDIT ADJUSTER documented in this encounter Results * HOLD HLA SPECIMEN (03/25/2024 2:51 PM CREDIT ADJUSTER) Hold HLA Specimen 03/30/2024 4:01 PM CREDIT ADJUSTER [facility] ([facility] Comment:The Hold HLA specime n has been received into the lab and will be held for 5 years at 4 degrees. Blood BLOOD SPECIMEN / Unknown 03/25/2024 2:51 PM CREDIT ADJUSTER 03/30/2024 2:51 PM CREDIT ADJUSTER Alan Davenport MD LAB - BLOOD BANK ORDERABLES F inal Result [facility] [address] [place] [address], [facility] documented in this encounter Visit Diagnoses Not on filedocumented in this encounter Additional Health Concerns Infection Onset Date Last Indicated Resolved Time COVID-19 Under Investigation 09/13/2024 09/13/2024 09/13/2024 6:36 AM CDT documented as of this encounter Care Teams Manager Recruiting Relationship Specialty Start Date End Date Jeff Strickland MD [address] [place] [address] PCP - General 03/05/18 [place] [address] [address] Orthopedic Surgery 03/28/17 documented as of this encounter
--- OUTSIDE RECORDS SUMMARY | 2024-10-30 20:43 | XMS_ITS ---
Author Organization [facility] Address [facility] [place] [address] Care Team Providers Care Steam Fitter Supervisor Name Role Phone eJff Strickland MD Primary Care Provider Chan Nicholas MD Unavailable [phone] Alan Mccall MD Unavailable [phone] Pepito Haro MD PhD Unavailable Solange Guido MD Unavailable [phone] Active Problems Problem Noted Date Diagnosed Date [...] damage Assessment & Plan (03/09/2024 6:25 PM CLAM SORTER): Vision OD trends mild improvement, though still [...] We discussed that genetic results would not frame changer. Given we have exhausted available [...] weeks and have patient return to [facility] retina in 4 weeks for repeat [...] 03/26/2021 Assessment & Plan (03/26/2021 1:17 PM CLAM SORTER): Enlarged mild sella turcica on a routine [...] units Assessment & Plan (03/26/2021 1:17 PM CLAM SORTER): Chronic, uncontrolled, improving A1c today 7.7 % [...] WNL Assessment & Plan (03/26/2021 1:16 PM CLAM SORTER): Pt currently on Levothyroxine 112 mcg oral [...] 11/18/2018 Assessment & Plan (01/21/2019 2:02 PM CLAM SORTER): Symptomatic. Will request for esophageal manometry. Continue [...] well Assessment & Plan (03/26/2021 1:16 PM CLAM SORTER): On statin therapy Tolerating well Last lipid [...] nephrectomy. 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 [id number] Current Treatment and Therapy Plans No current [...] were not included. Kendall Carl 1955 Referring Sanding Machine Operator Or Tender: Alan Mccall Dialysis Info: NOD GFR 13 Type: Time: (Not currently on dialysis) days Blood Type: O NEG Body mass index is 37.36 kg/m . ALERTS Strapper: needs to establish Past Medical History: Diagnosis Date Arthropathy RA. Dr Strickland manages. CHF (congestive heart failure) 2 yrs ago Child Care Centre Manager is Dr. Becerra in [place]. CKD (chronic kidney disease), stage V Community acquired pneumonia 2018 [facility] hospitalized. Diabetes mellitus 20 years. Lantus pen. Esophageal reflux takes med Hypercholesteremia 5-10 yrs meds Hypertension takes meds Hypothyroidism meds 20 years Kidney stones 5-6 years ago had 2 in the same year. Malignancy right kidney 2012 Obstructive sleep apnea 3 years. [facility]. Cannont remember doctors name Renal cell [...] file Gets together: Not on file Attends cheondoism service: Not on file Active member of [...] of this social studies teacher that Kendall Carl has several positive factors for Kidney transplant candidacy from a psychosocial perspective. Patient appears to have appropriate knowledge of illness. Patient has sufficient insurance coverage and stable financial situation for post transplant needs. No concerns regarding substance abuse, legal issues, or mental health needs. Patient has adequate support system and appropriate discharge plan. Plan: maintenance worker municipal to provide supportive services as needed. Patient appears to be a reasonable candidate for transplant from a psychosocial perspective. -Post transplant arrangement forms are needed prior to being listed. -Updated toxicology results needed, per protocol Psychiatric Consult Recommended: No Transplant Abnormal Psychology Teacher: Joy Tam LCSW RD: 11/09/2019 BMI= [...] use my fitness pal or my food agile coach) - Consume no more than 2000 calories a day E-mailed pt's a 2000 calorie, CKD meal plan. Items Still Pending: Clinic, colonoscopy Acute pain of left shoulder 01/25/2019 03/25/2023 Non-cardiac chest pain 11/18/201803/25 Assessment & Plan (01/21/2019 2:02 PM CLAM SORTER): The pain is persistent. The patient described [...] has had extensive cardiac workup by the supervisor assembly room including coronary angiogram. He has chest pain [...]
--- OUTSIDE RECORDS SUMMARY | 2024-10-30 20:43 | XMS_ITS | Encounter Summary ---
Author Organization [facility] Address [address] [place] [address] Care Team Providers Care Slot Operations Director Name Role Phone Deandre Bojorquez MD Unavailable [phone] Jeff Strickland MD Primary Care Provider Encounter Details Date Type Department Care Team (Late st Contact Info) Description 09/10/2024 Telephone [facility] - Centralized Scheduling [facility] [place] [address] Niraj Turner MD [facility] [place] [address] Social History Tobacco Use Types Packs/Day Years [...] and heating? Not hard at all 09/14/2024 [facility] [place] of Occupat [facility] - Occupational Stress Questionnaire Answer Date [...] in a nursing home (including now)? No 09/14/2024 Sex and Gender Information Value Date Recorded Sex Assigned at Male 07/02/2021 2:37 PM CDT Legal Sex Male 10:14 PM [employer] Gender Identity Male 07/02/2021 2:37 PM CDT [...] Description 12/06/2024 10:40 AM CDT Office Visit [facility] - Endocrinology [address] [place] [address], [place] [address] Marbin Flores MD [address] [facility] DIV OF ABD TRANS[place] [address] Niraj Turner MD 1225 [facility] 2L [place] [address] documented as of this encounter Visit Diagnoses Not on filedocumented in this encounter Additional Health Concerns Infection Onset Date Last Indicated Resolved Time COVID-19 Under Investigation 09/13/2024 09/13/2024 09/13/2024 6:36 AM CDT documented as of this encounter Care Teams Slot Operations Director Relationship Specialty Start Date End Date Jeff Strickland MD [address] [place] [address] PCP - General 03/05/18 [place] [address] [place] [address] Orthopedic Surgery 03/28/17 documented as of this encounter
--- OUTSIDE RECORDS SUMMARY | 2024-10-30 20:44 | XMS_ITS ---
Author Organization [facility] Address [address] [place] [address] Care Team Providers Care Unarmed Security Officer Name Role Phone Jeff Strickland MD Primary Care Provider Chan Nicholas MD Unavailable Alan Mccall MD Unavailable Pepito Haro MD PhD Unavailable [phone] Solange Guido MD Unavailable [phone] Dialysis Access Sites Type Status Location Placement [...] both eyes EGFR Routine 04/13/2024 5:06 AM WARD SECRETARY HEMOGLOBIN A1C STAT 04/10/2024 11:41 PM WARD SECRETARY LIPID PANEL STAT 04/10/2024 11:41 PM WARD SECRETARY from Last 3 Months or Most Recently [...] 300 + = 14 units Active FA-vit Dunmj-O-iaua-vitamin D3 (Dialyvite 800-Ultra D) 0.8-2,000 mg-unit tablet [...] total) by mouth 06/04/19 25 Active vitamins A,C,B-suod-yuokvs (PreserVision AREDS) 4,296 mcg-226 mg-90 mg capsule [...] damage Assessment & Plan (03/09/2024 6:25 PM WARD SECRETARY): Vision OD trends mild improvement, though still [...] We discussed that genetic results would not supervisor records change. Given we have exhausted available treatment [...] 03/26/2021 Assessment & Plan (03/26/2021 1:17 PM WARD SECRETARY): Enlarged mild sella turcica on a routine [...] units Assessment & Plan (03/26/2021 1:17 PM WARD SECRETARY): Chronic, uncontrolled, improving A1c today 7.7 % [...] WNL Assessment & Plan (03/26/2021 1:16 PM WARD SECRETARY): Pt currently on Levothyroxine 112 mcg oral [...] 11/18/2018 Assessment & Plan (01/21/2019 2:02 PM WARD SECRETARY): Symptomatic. Will request for esophageal manometry. Continue [...] well Assessment & Plan (03/26/2021 1:16 PM WARD SECRETARY): On statin therapy Tolerating well Last lipid [...] nephrectomy. 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 [id number] Immunizations Immunization Administration Dates Next Due Hep [...] = 0.6 oz pur e alcohol) rarely [facility] [employer] Answer Date Recorded In the past 12 months has [employer], gas, oil, or water [employer] threatened to shut off services in [...] any clubs o r organizations such as christianity groups, unions, fraternal or athletic groups, or [...] on file Legal Sex Male 2:23 AM WARD SECRETARY Gender Identity Not on file Sexual Orientation [...] CDT Respiratory Rate 16 04/13/2024 8:33 AM WARD SECRETARY Oxygen Saturation 98% 04/13/2024 8:33 AM WARD SECRETARY Inhaled Oxygen Concentration - - Weight 122.3 [...] Selwyn Wong M.D. LC: MARC Report ID: [id number] [place] Location: [id number] Procedure Note Dolores Wong MD - 10/12/2024 EXAM DESCRIPTION: MRI BRAIN WO CONTRAST REASON FOR STUDY: other symptoms and signs involving cognitive functionsand awareness Cognitive changes, confusion, worse over that last several weeks, noinjury or trauma but patient states he has had several surgeries recently TECHNIQUE: Multiplanar imaging includes non-contrasted T1, T2, FLAIR, and diffusion with ADC map sequences. Additional sequence(s) sensitive Where Was it Filmed products. Images stored on PACS. COMPARISON: MRI [...] Selwyn Wong M.D. LC: MARC Report ID: [id number] [place] Location: [id number] us Provider Transcribed Order IMG MRI PROCEDURES [...] Result * (ABNORMAL) eGFR (04/13/2024 5:06 AM WARD SECRETARY) eGFR 5(L) >=60 mL/min/1. 73 m2 Comment: [...] reviewed 2020. Blood 04/13/2024 5:0 6 AM WARD SECRETARY 04/13/2024 5:31 AM WARD SECRETARY us Saul Engle MD LAB BLOOD ORDERABLES Final Resul t [facility] Department of Laboratories [place], [place] [id number] * (ABNORMAL) Lipid panel (04/10/2024 11:41 PM WARD SECRETARY) Cholesterol 145 30 - 199 mg/dL Comment: [...] on 2017. Triglycerides 453(H) <=149 mg/dL [facility] Comment: Interpretive Data Ages [...] revised on 2017. HDL 22(L) >=40 mg/dL [facility] Comment: Interpretive Data Ages [...] 2017. LDL, calculated See Comment <=129 [facility] Comment: Unable to calculate [...] on 2023. Non-HDL Cholesterol 123 mg/dL [facility] Comment: Interpretive Data Ages [...] last revised on 2017. Chol/HDL ratio 7 [facility] Blood 04/10/2024 11:4 1 PM WARD SECRETARY 04/10/2024 11:55 PM WARD SECRETARY us Nicole Boo MD LAB BLOOD ORDERABLES Final Result [facility] Department [place] [address] from Last 3 Months or Most Recently Relevant to Health Maintenance
[2024-10-30 21:17] LABS: Influenza A QL RT-PCR Negative (Negative); Influenza B QL RT-PCR Negative (Negative); RSV RNA, RT-PCR Negative (Negative); SARS-CoV-2 RNA PCR Negative (Negative)
[2024-10-30] MEDS: SODIUM CHLORIDE 0.9% IV 1,000 ML 999 ML IV CONT (21:48)
[2024-10-30] MEDS: METOCLOPRAMIDE HCL INJ 10 MG/2 ML VIAL IV PUSH (21:49)
[2024-10-30] MEDS: ACETAMINOPHEN 500 MG TABLET 1000 MG PO (21:49)
[2024-10-30] MEDS: MECLIZINE HCL 25 MG TABLET PO (22:31)
--- NOTE | 2024-10-30 23:19 | ED.GENADULT ---
HPI - General Adult General Chief complaint: Headache Stated complaint: headache Time Seen by Provider: 10/30/24 20:29 History of Present Illness HPI narrative: Patient is a 69-year-old male who presents emergency department this evening complaining of a headache. States that it started around 5:00 p.m. this evening. Patient states that he did take some Tylenol with no relief of his symptoms. States that he does get migraine frequently but states that this feels slightly different. Denies any focal weakness, numbness and tingling or any vision changes. No additional symptoms or concerns at this time. Related Data Home Medications ?Medication ?Instructions ?Recorded ?Confirmed ?Last Taken ?Type aspirin 81 mg tablet,delayed 81 mg PO HS 02/01/19 09/23/24 08/04/24 History release (Sami Low Dose Aspirin) vit C 250 mg-vit E 200 unit-zinc 1 tablet PO Q12H 02/01/19 09/23/24 08/05/24 History 12.5 mg-copper 1 ql-cek-xadpmz tablet (ICaps AREDS2 (copper citrate)) cholecalciferol (vitamin D3) 125 125 mcg PO DAILY 10/01/22 09/23/24 08/05/24 History mcg (5,000 unit) tablet (Vitamin D3) atorvastatin 80 mg tablet 80 mg PO HS 09/02/23 09/23/24 08/04/24 History folic acid 0.8 mg-vit B comp with 800 tablet PO DAILY 04/03/24 09/23/24 08/05/24 History R-fgiq-uunmdmr D3 2,000 unit tablet (Dialyvite 800-Ultra D) insulin aspart U-100 100 unit/mL 1 sliding scale dose subcut TID 04/03/24 09/23/24 08/05/24 History (3 mL) subcutaneous pen (Novolog FlexPen U-100 Insulin aspart) insulin glargine 100 unit/mL (3 35 unit subcut HS 04/03/24 09/23/24 08/04/24 History mL) subcutaneous pen (Basaglar KwikPen U-100 Insulin) lisinopril 20 mg tablet 20 mg PO BID 04/21/24 09/23/24 08/05/24 History blood-glucose transmitter (Dexcom 04/23/24 09/23/24 Unknown History G6 Transmitter device) carvedilol 25 mg tablet 25 mg PO BID 06/17/24 09/23/24 08/05/24 History tamsulosin 0.4 mg capsule 0.4 mg PO HS 06/17/24 09/23/24 08/04/24 History clopidogrel 75 mg tablet 75 mg PO HS 07/25/24 09/23/24 08/04/24 History furosemide 80 mg tablet 160 mg PO BID 09/23/24 09/23/24 Unknown History nifedipine 30 mg tablet,extended 30 mg PO DAILY 09/23/24 09/23/24 Unknown History release Allergies Allergy/AdvReac Type Severity Reaction Status Date / Time oxycodone AdvReac Unknown Hallucinati Verified 10/30/24 19:30 ng Review of Systems Review of Systems: All systems are reviewed and are negative unless stated otherwise in the HPI. [facility] Past Medical History Medical History Hypertensive heart disease with heart failure Chronic diarrhea Family history of colon cancer in father Chronic ethmoidal sinusitis Nasal congestion Bilateral impacted cerumen Allergic rhinitis Chronic sinusitis Chronic recurrent sinusitis Hypertensive CHF C. difficile colitis Arthritis Kidney stones Benign prostatic hyperplasia Coronary artery disease End-stage renal disease on peritoneal dialysis Obstructive sleep apnea Insulin dependent type 2 diabetes mellitus Renal cell carcinoma Status post partial left nephrectomy. Dyslipidemia Clostridium difficile infection Gastroesophageal reflux disease Depression with anxiety Hypothyroidism Cirrhosis Pituitary tumor Status post resection. Anemia Chronic diastolic (congestive) heart failure Hypertension Surgical History Surgical History History of open reduction and internal fixation (ORIF) procedure (11/2022) Screw fixation of sternal fracture. History of colonoscopy with polypectomy History of umbilical hernia repair History of inguinal hernia repair History of coronary artery stent placement History of cardiac catheterization (08/2020) Stent x2 to the LAD. History of arthroplasty of right knee History of cataract extraction History of pituitary surgery (11/2021) History of partial nephrectomy Partial left nephrectomy for renal cell carcinoma. History of cholecystectomy (2007) Family History Family History Mother Aneurysm Hypertension Cerebrovascular accident Heart murmur Father Carcinoma of colon Social History Social History Social History: Surrogate medical decision maker: Harriet Carl, spouse. Code status: Full code. Smoking status: Never smoker Second hand tobacco smoke exposure: No Alcohol intake: never Alcohol use details: rare, holidays Substance use: never Substance use type: does not use Do You Feel Safe in your Home?: Yes Lack of Transportation: No Lack of Food: Never True Current Housing: I Have Housing Concerned About Future Housing: No Difficulty Paying Gas/Electric Bills: No Difficulty Paying for Meds: No Currently Unemployed: No Education: Trade/Vocational Certificate Difficulty w/ Childcare or Family Care: No Living arrangements: with family Additional living arrangements comments: Lives with spouse in [place]. Occupation/Education: retired Additional occupation/education comments: [employer]. Spiritual care concerns: No Agree to blood products: Yes Exam Narrative: General: Alert, awake, afebrile, in no acute distress. HEENT: PERRL, no rhinorrhea, no post nasal drip, oropharynx clear. Neck: Trachea midline, no JVD, no lymphadenopathy. Cardiovascular: Regular rate and rhythm, no murmurs, rubs or gallops, no peripheral edema. Respiratory: Clear to auscultation bilaterally, no tachypnea, no wheezing, no rhonchi, no rubs, no respiratory distress. Abdomen: Soft, nontender, nondistended, no rebound, no guarding, no peritoneal signs. Musculoskeletal: No joint swelling or deformity, normal muscle tone. Skin: No rashes or petechia, no signs of infection. Psychiatric: Alert and oriented, normal behavior and judgment for situation. Neurological: Alert and oriented to person, place, and time. Follows all commands. No focal deficits, speech is clear and fluent. Course Vital Signs Vital signs: Vital Signs Temperature 98.0 F 10/30/24 19:26 Pulse Rate 78 10/30/24 19:26 Respiratory Rate 20 10/30/24 19:26 Blood Pressure 140/68 10/30/24 19:26 Pulse Oximetry 99 10/30/24 19:26 Oxygen Delivery Room Air 10/30/24 19:26 Temperature 98.0 F 10/30/24 19:26 Pulse Rate 78 10/30/24 19:26 Respiratory Rate 20 10/30/24 19:26 Blood Pressure 140/68 10/30/24 19:26 Pulse Oximetry 99 10/30/24 19:26 Oxygen Delivery Room Air 10/30/24 19:26 Medical Decision Making MDM Narrative Medical decision making narrative: The patient was evaluated by myself in the emergency department. History is obtained from patient who is an independent historian and physical exam was performed. External medical records were reviewed at this time. IV was established and pertinent tests were ordered. Patient was administered 1 L IV fluid bolus of normal saline, 10 mg of IV Reglan, 25 mg of IV Benadryl and 1g of oral Tylenol with improvement of his headache. Imaging studies obtained included CT brain without IV contrast which was independently interpreted by me revealing no acute process, which is pending final radiology interpretation. Differential diagnosis considerations include intracranial hemorrhage, tumor, migraine headache, tension headache, cluster headache. Comorbidities impacting this visit include none. I have evaluated and discussed social determinants of health with the patient that could potentially impact subsequent diagnosis and treatment plans. On repeat assessment of the patient, reevaluation revealed that the patient is doing well and is in no acute distress. Patient symptoms have improved since he arrived to our emergency department. Repeat vital signs were all reviewed and noted to be stable. Differential diagnosis and treatment plan were discussed with the patient at bedside. Patient agrees with discussion and after shared medical decision making agrees with discharge. All questions were answered to the patient's satisfaction. Patient will follow up with his PCP in 3-5 days. Patient was provided with strict return precautions and instructed to return to the emergency department if any new or worsening symptoms develop. The patient was discharged in stable condition. Vital Signs Vital Signs: Vital Signs Temperature 98.0 F 10/30/24 19:26 Pulse Rate 78 10/30/24 19:26 Respiratory Rate 20 10/30/24 19:26 Blood Pressure 140/68 10/30/24 19:26 Pulse Oximetry 99 10/30/24 19:26 Oxygen Delivery Room Air 10/30/24 19:26 Temperature 98.0 F 10/30/24 19:26 Pulse Rate 78 10/30/24 19:26 Respiratory Rate 20 10/30/24 19:26 Blood Pressure 140/68 10/30/24 19:26 Pulse Oximetry 99 10/30/24 19:26 Oxygen Delivery Room Air 10/30/24 19:26 Lab Data Labs: Lab Results 10/30/24 Range/Units 20:34 Influenza A (RT-PCR) Negative (Negative) Influenza B (RT-PCR) Negative (Negative) RSV (RT-PCR) Negative (Negative) SARS-CoV-2 RNA (RT-PCR) Negative (Negative) Discharge Plan Discharge Clinical Impression: Cephalalgia Patient Disposition: Home Condition: Improved Instructions: Antibiotic Form, Acute Headache (ED) Additional Instructions: Please follow-up with your family doctor within the next 3-5 days. Return emergency department if any new or worsening symptoms develop. Patient Language: Armenian Prescriptions: No Action aspirin [Sami Low Dose Aspirin] 81 mg Tablet,Delayed Release (Dr/Ec) 81 mg PO HS ICaps AREDS2 (copper citrate) 250 mg-200 unit -12.5 mg-1 mg Tablet 1 tablet PO Q12H pantoprazole 40 mg tablet,delayed release (DR/EC) 40 mg PO QAM Qty: 30 3RF (DME) Dexcom G6 Transmitter Device See Rx Instructions .Route Rx Instructions: As directed gabapentin 100 mg tablet 100 mg PO BID Qty: 60 1RF nifedipine 30 mg tablet extended release 30 mg PO DAILY lanthanum 1,000 mg tablet,chewable 1,000 mg PO TID Qty: 1 0RF Rx Instructions: administer with food; chew thoroughly before swallowing furosemide 80 mg tablet 160 mg PO BID lisinopril 20 mg tablet 20 mg PO BID cholecalciferol (vitamin D3) [Vitamin D3] 125 mcg (5,000 unit) Tablet 125 mcg PO DAILY atorvastatin 80 mg tablet 80 mg PO HS carvedilol 25 mg tablet 25 mg PO BID tamsulosin 0.4 mg capsule 0.4 mg PO HS Dialyvite 800-Ultra D 0.8-2,000 mg-unit tablet 800 tablet PO DAILY insulin aspart U-100 [Novolog FlexPen U-100 Insulin] 100 unit/mL (3 mL) insulin pen 1 sliding scale dose subcut TID Patient Comments: PATIENT TAKES 5 UNITS WITH MEALS SCHEDULED AND GOES UP TO 15 UNITS IF IT GETS TO 300 insulin glargine [Basaglar KwikPen U-100 Insulin] 100 unit/mL (3 mL) insulin pen 35 unit subcut HS Patient Comments: 40 UNITS IN MORNING clopidogrel 75 mg tablet 75 mg PO HS levothyroxine 112 mcg tablet 112 mcg PO DAILY Qty: 90 2RF lorazepam [Ativan] 0.5 mg tablet 0.5 mg PO DAILY PRN (Reason: Anxiety) Qty: 30 0RF hydrocodone-acetaminophen 5-325 mg tablet 1 tablet PO Q6H PRN (Reason: pain) Qty: 30 0RF Follow-up/Referrals: Jeff Strickland MD [Primary Care Provider, Family Practice] - 3 Days Time of Disposition: 23:26
[2024-10-30 23:47] VITALS: BP 142/74; PULSE 67; RESP 18; O2SAT 99
== END 2024-10-30 23:48 | disposition home or self-care (01) ==
PROVIDERS: Emergency Provider Emergency Medicine; PCP Family Medicine
DX: R51.9 Headache, unspecified (principal); Z20.822 Contact with and (suspected) exposure to COVID-19; I13.2 Hypertensive heart and chronic kidney disease with heart failure and with stage 5 chronic kidney disease, or end stage renal disease; E11.22 Type 2 diabetes mellitus with diabetic chronic kidney disease; N18.6 End stage renal disease; I50.9 Heart failure, unspecified; Z99.2 Dependence on renal dialysis; Z79.4 Long term (current) use of insulin; M19.90 Unspecified osteoarthritis, unspecified site; Z87.442 Personal history of urinary calculi; I25.10 Atherosclerotic heart disease of native coronary artery without angina pectoris; G47.30 Sleep apnea, unspecified; E78.5 Hyperlipidemia, unspecified; E03.9 Hypothyroidism, unspecified; D64.9 Anemia, unspecified; K21.9 Gastro-esophageal reflux disease without esophagitis; Z85.528 Personal history of other malignant neoplasm of kidney; F41.9 Anxiety disorder, unspecified; F32.A Depression, unspecified
CPT/HCPCS: 70450; 87637; 96361; 96374; 96375; 99284; A9270; J1200; J2765; J7030

== ENCOUNTER 2024-11-02 22:44 | Emergency (ER) | payer MEDICARE, SELFPAY ==
--- OUTSIDE RECORDS SUMMARY | 2009-04-18 10:00 | XMS_ITS | Continuity of Care Document ---
Author Organization [facility] Address [address] [place] [address] Phone Care Team Providers Care Strap Setter Name Role Phone Kee Rodriguez Unavailable Unavailable Procedures Procedure Date Office/outpatient Visit, Est Eye Exam Established Pt Advance Directives Directive Yes / No Effective Date File Name No Information Encounters Encounter Description Practice Location Reason(s) For Visit Diagnoses Date Provider Providers Copied on Encounter Office/outpat ient Visit, Est [facility], [address] [place] [address] [address], [place], [place], [address], tel:[phone] SEC [facility] No Information Mar-0 2-201 0 Krishnasamy Kee. [address] [facility] [place] [address], [place], [place], [facility], [place]. tel:[phone] [facility], [address] [place] [address] [address], [place], [place], [address], tel:[phone] SEC [facility] No Information Nhan-3 0-200 7 David OD Freddy. [address], [place], [place], [facility], [place]. tel:[phone] Family History Family Member Type Diagnosis Age [...]
--- OUTSIDE RECORDS SUMMARY | 2009-04-18 10:00 | XMS_ITS | Continuity of Care Document ---
Author Organization [facility] Address [address] [place] [address] Phone Care Team Providers Care Gear Machinist Name Role Phone Kee Rodriguez Unavailable Unavailable Procedures Procedure Date Office/outpatient Visit, Est Eye Exam Established Pt Advance Directives Directive Yes / No Effective Date File Name No Information Encounters Encounter Description Practice Location Reason(s) For Visit Diagnoses Date Provider Providers Copied on Encounter Office/outpat ient Visit, Est [facility], [address] [place] [address] [address], [place], [place], [address], tel:[phone] [facility] No Information Mar-0 2-201 0 Krishnasamy Kee. [address] [facility] [place] [address], [place], [place], [facility], [place]. tel:[phone] [facility], [address] [place] [address] [address], [place], [place], [address], tel:[phone] SEC [facility] No Information Nhan-3 0-200 7 David OD Freddy. [address], [place], [place], [facility], [place]. tel:[phone] Family History Family Member Type Diagnosis Age [...]
--- OUTSIDE RECORDS SUMMARY | 2023-09-09 06:59 | XMS_ITS | Continuity of Care Document ---
Author Organization [employer] [place] Address [address] [place] [address] Phone Care Team Providers Care Dairy Consultant Name Role Phone Olu Payan Unavailable Unavailable [...] Diagnoses Date Provider Providers Copied on Encounter [facility], [place], [place], [id number], tel:[phone] [place] No Information 4 Gladis Olu. [address] [place] [address], [address], [place], [place], [facility], . tel: [phone] [address] [place] [address], [place], [place], [id number], tel:[phone] [place] No Information 4 Genoveva Mcdonald. . Referring Provider: Jeff Strickland [address] [place] [address] [address], [place], [facility]. tel:[phone] [address] [address], [place], [place], [address], tel:[phone] [place] No Information 4 Gladis Olu. [address] [place] [address], [address], [place], [place], [facility], . tel: [phone] Referring Provider: Yanira Chin [facility] [address], [place], [facility]. tel:[phone] [address] [address], [place], [place], [id number], tel:[phone] [place] No Information 4 Gladis Raines. [address] [place] [address], [address], [place], [place], [facility], . tel: [phone] Referring Provider: Yanira Chin [facility] [address], [place], [address]. tel:[phone], [id number], tel:[phone] [place] No Information 4 Jacinto Fairchild. . Referring Provider: Yanira Chin [facility] [address], [place], [address]. tel:[phone], [place], [place], [address], [place] tel:[phone] [place] No Information 4 Jacinto Fairchild. . Referring Provider: Jeff Strickland [address] [place] [address] [address], [place], [facility]. tel:[phone], [id number], tel:[phone] [place] No Information 4 Genoveva Mcdonald. . Referring Provider: Jeff Strickland [address] [place] [address] [address], [place], [facility]. tel:[phone], [id number], tel:[phone] [place] No Information [address] [facility] [place] [address], [place], [facility], . tel: [phone] Referring Provider: Jeff Strickland [address] [place] [address] [address], [place], [facility]. tel:[phone], [id number], tel:[phone] [place] No Information 0 4 Genoveva Mcdonald. . Referring Provider: Jeff Strickland [address] [place] [address] [address], [place], [facility]. tel:[phone], [place], [id number], [place] tel:[phone] [place] No Information 0 [address] [facility] [place] [address], [place], [place], [facility], . tel: [phone] Referring Provider: Jeff Strickland [address] [place] [address] [address], [place], [facility]. tel:[phone] Family History Family Member Type Diagnosis Age At Onset No Information Payers Payer name Insurance type Covered democrat ID Diego suarez(ernesto Hadley [id number] Social History Type Description Quantity Date Captured [...]
--- OUTSIDE RECORDS SUMMARY | 2023-09-09 06:59 | XMS_ITS | Continuity of Care Document ---
Author Organization [employer] [place] Address [address] [place] [address] Phone Care Team Providers Care Cordwood Cutter Name Role Phone Olu Payan Unavailable Unavailable Procedures Procedure Date Therapeutic Activities Neuromuscular Re-Ed Therapeutic Exercise Therapeutic Activities Neuromuscular Re-Ed Hot or Cold Pack Therapeutic Activities Neuromuscular Re-Ed Therapeutic Exercise Hot or Cold Pack Therapeutic Activities Neuromuscular Re-Ed Therapeutic Exercise Therapeutic Activities Neuromuscular Re-Ed Therapeutic Exercise Therapeutic Activities Neuromuscular Re-Ed Therapeutic [...] Diagnoses Date Provider Providers Copied on Encounter [facility], [place], [place], [id number], tel:[phone] [place] No Information [address] [place] [address], [address], [place], [facility], . tel: [phone] [address] [place] [address], [place], [place], [address], tel:[phone] [place] No Information 4 Genoveva Mcdonald. . Referring Provider: Jeff Strickland [address] [place] [address] 162 [address], [place], [place], [facility]. tel:[phone] [place] [address] [address], [place], [place], [address], tel:[phone] [place] No Information 4 Gladis Olu. [address] [place] [address], [address], [place], [facility], . tel: [phone] Referring Provider: Yanira Chin [facility] [address], [place], [facility]. tel:[phone] [place] [address] [address], [place], [place], [address], tel:[phone] [place] No Information 4 Gladis Raines. [address] [place] [address], [address], [place], [facility], . tel: [phone] Referring Provider: Yanira Chin [facility] [address], [place], [address]. tel:[phone], [id number], tel:[phone] [place] No Information 4 Jacinto Fairchild. . Referring Provider: Yanira Chin [facility] [address], [place], [address]. tel:[phone], [place], [place], [address], [place] tel:[phone] [place] No Information 4 Jacinto Fairchild. . Referring Provider: Jeff Strickland [address] [place] [address] 162 [address], [place], [facility]. tel:[phone], [id number], tel:[phone] [place] No Information 4 Genoveva Mcdonald. . Referring Provider: Jeff Strickland [address] [place] [address] 162 [address], [place], [facility]. tel:[phone], [id number], tel:[phone] [place] No Information 4 Gladis Raines. [address] [facility], [address], [place], [facility], . tel: [phone] Referring Provider: Jeff Strickland [address] [place] [address] [address], [place], [facility]. tel:[phone], [address], tel:[phone] [place] No Information 0 4 Genoveva Mcdonald. . Referring Provider: Jeff Strickland [address] [place] [address] 162 [address], [place], [facility]. tel:[phone], [place], [address], [place] tel:[phone] [place] No Information 0 4 Gladis Raines. [address] [facility], [address], [place], [facility], . tel: [phone] Referring Provider: Jeff Strickland [address] [place] [address] [address], [place], [facility]. tel:[phone] Family History Family Member Type Diagnosis Age At Onset No Information Payers Payer name Insurance type Covered constitution party ID Diego suarez(ernesto Hadley [id number] Social History Type Description Quantity Date Captured [...]
--- OUTSIDE RECORDS SUMMARY | 2024-01-19 09:15 | XMS_ITS ---
Author Organization [facility] Address [address] [place] [address] [place] [address] Care Team Providers Care Discharge Specialist Name Role Phone DONNIE WOOD MD Primary Care Provider Lance Sergio Trujillo Unavailable [phone] REASON FOR VISIT Left > Right Low [...] 01/19/2024 BMI 33.81 kg/m2 01/19/2024 Post procedure px=847/71,65, 16.Discharged home ambulatory with per ambulatory. No acute distress noted. Encounters Encounter Location Date Provider Diagnosis [facility] [address] [place] [address] [place] [address] 01/19/2024 Sergio Schmitzick Radiculopathy, lumba r region [...] sed ation Operative Technique After the risks, waed efits, alternative treatment options and potential complications [...] discharged home in good condition with a pile driver. X-ray time: 25 seconds Progress Notes [...] patient's typical axial low back pain. John's, [place]'s and Gaenslen's are positive bilaterally. There is [...]
--- OUTSIDE RECORDS SUMMARY | 2024-02-03 06:45 | XMS_ITS ---
Author Organization [facility] Address [address] [facility] [place] [address] Care Team Providers Care Drop Forger Name Role Phone DONNIE WOOD MD Primary Care Provider Lance Sergio Trujillo Unavailable [phone] ALLERGIES No Known Allergies REASON FOR VISIT [...] retired. 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 John's, [place]'s and Gaenslen's are positive bilaterally. There is [...]
--- OUTSIDE RECORDS SUMMARY | 2024-03-03 06:30 | XMS_ITS ---
Author Organization [facility] Address [address] [place] [address] [place] [address] Care Team Providers Care Tip Stitcher Name Role Phone DONNIE WOOD MD Primary Care Provider Lance Sergio Trujillo Unavailable [phone] ALLERGIES No Known Allergies REASON FOR VISIT [...] retired. 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 He denies tobacco, alcohol, or illicit drug abuse PROBLEMS Problem Type ICD Code Onset Dates Problem Status W/U Status Risk SNOMED Code Notes Problem Primary osteoarthritis, 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) Active confirmed Localized, primary osteoarthritis of the shoulder region ([id number]) VITAL SIGNS Blood pressure systolic 112 mm Hg 03/03/19 25 Blood pressure diastolic 62 mm Hg 025 Heart Rate 59 /min 03/03/2024 Respiratory Rate 18 /min 03/03/2024 Height 5 ft 9 in in 03/03/2024 Weight 229 lbs 03/03/2024 BMI 33.81 kg/m2 03/03/2024 Encounters Encounter Location Date Provider Diagnosis [facility] [address] [facility] [place] [address] 03/03/2024 Sergio Stynowick Pain in left knee M25.562 ; Primary osteoarthritis, unspecified shoulder M19.019 ; Other chest pain R07.89 ; Radiculopathy, lumbar region M54.16 ; Other intervertebral disc degeneration, lumbar region M51.36 ; 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 John's, [place]'s and Gaenslen's are positive bilaterally. There is [...]
--- OUTSIDE RECORDS SUMMARY | 2024-03-08 07:45 | XMS_ITS ---
Author Organization [facility] Address [address] [place] [address] [place] [address] Care Team Providers Care Press Operator Heavy Duty Name Role Phone DONNIE WOOD MD Primary Care Provider Robba Sergio Trujillo Unavailable [phone] REASON FOR VISIT BILAT SHOULDER JOINT INJECTION (NEED XRAY - BEING DONE AT [facility]) MEDICATIONS Medication SIG (Take, Route, Frequency, [...] Location Date Provider Diagnosis [facility] [address] [place] [phone] 03/08/2024 Sergio Rivera Primary osteoarthritis, unspecified shoulder [...] discharged home in good condition with a electric screw driver operator. X-ray time: 6 seconds Progress Notes * [...] patient's typical axial low back pain. John's, Wellman's and Gaenslen's are positive bilaterally. There is [...] Follow-up: Follow-up Plan documen wendy:: Yes [facility] Quality 2020: [facility] Documented:: Compliant
--- OUTSIDE RECORDS SUMMARY | 2024-03-31 10:13 | XMS_ITS ---
Author Organization [facility] Address [address] [facility] [place] [address] Care Team Providers Care Emotionally Impaired Teacher Name Role Phone DONNIE WOOD MD Primary Care Provider Unavaila Sregio Trujillo Unavailable [phone] Encounters Encounter Location Date Provider Diagnosis [facility] [address] [facility] [place] [address] 03/31/2024 Sergio Rivera PLAN OF TREATMENT No Information
--- OUTSIDE RECORDS SUMMARY | 2024-11-02 13:45 | XMS_ITS | Encounter Summary ---
Author Organization [facility] Address [address] [place] [address] Care Team Providers Care Cafeteria Team Leader Name Role Phone Deandre Bojorquez MD Unavailable Jeff Strickland MD Primary Care Provider [phone] Reason for Referral * Radiology Services (Routine) - Open Specialty Diagnoses / Procedures Referred By Contac t Referred To Contact Interventional Radiology Diagnoses PAD (peripheral artery disease) Amputation of left great toe Procedures IR Angiogram Left Leg Elroy Holcomb MD [address] [place] [address] [place] [address] Phone: tel: fax: [facility] IVR [address] [place] [address] Phone: tel: fax: Referral ID Status Reason Start Date Expiration Date Visits Re quested Visits Authorized [id number] Open 11/02/2024 11/02/2025 1 1 Reason for Visit * Reason Comments Post-Op Encounter Details Date Type Department Care Team (Late st Contact Info) Description 11/02/2024 1:45 PM CDT Office Visit [facility] - Vascular Surgery [address] [place] [address], [place] [address] Elroy Holcomb MD [address] [place] [address] PAD (peripheral artery disease) (Primary Dx); Amputation of left great toe Social History Tobacco Use Types Packs/Day Years Used Date Smoking Tobacco: Never Smokeless Tobacco: Never Tobacco Cessation:Counseling Given: No Alcohol Use Standard Drinks/Week Comments Not Currently [...] Recorded Patient Health Questionnaire-2 Score 6 10/05/2024 [facility] [place] of Occupat ional Health - Occupational Stress [...] time in the past 12 m [facility], were you homeless or living in a group home (including now)? No 09/24/2024 Sex and Gender Information Value Date Recorded Sex Assigned at Male 07/02/2021 2:37 PM CDT Legal Sex Male 10:14 PM SEM MANAGER Gender Identity Male 07/02/2021 2:37 PM CDT Sexual Orientation Straight 07/02/2021 2: 37 PM CDT documented as of this encounter Last Filed Vital Signs Vital Sign Reading Time Taken Comments Blood Pressure 107/67 11/02/2024 1:43 PM CDT Pulse 76 11/02/2024 1:43 PM CDT Temperature 36.2 C (97.2 F) 11/02/2024 1:43 PM CDT Respiratory Rate - - Oxygen Saturation 96% 11/02/2024 1:43 PM CDT Inhaled Oxygen Concentration - - Weight 110.7 kg (244 lb) 11/02/2024 1:43 PM CDT Height 172.7 cm (5' 8) 11/02/2024 1:43 PM CDT Body Mass Index 37.1 11/02/2024 1:43 PM CDT documented in this encounter Functional Status * Is person deaf or have serious hearing difficulty? Answer Date of Assessment Author No 09/24/2024 5:33 AM CDT Francy Viigl RN * Is person blind or have [...] this encounter Patient Instructions * Patient Instructions* Ofelia Dunn RN - 11/02/2024 2:04 PM CDT You will be called to schedule your angiogram procedure with Dr. Holcomb. Call the office with anyquestions or concerns [phone] documented in this encounter Plan of Treatment Upcoming Encounters Date Type Department Care Team (Late st Contact Info) Description 12/06/2024 10:40 AM CDT Office Visit [facility] - Endocrinology [address] [facility], [place] [address] Marbin Flores MD [address] DIV [place] [address] Niraj Turner MD [address] [facility] [place] [address] Scheduled Orders Name Type Priority Associated Diagnoses Orde r Schedule IR Angiogram Left Leg Imaging Routine PAD (peripheral artery disease) Amputation of left great toe 1 Occurrences starting 11/02/2024 until 11/02/2025 documented as of this encounter Visit Diagnoses Diagnosis PAD (peripheral artery disease)- Primary Unspecified disorders of arteries and arterioles Amputation of left great toe documented in this encounter Care Teams Cafeteria Team Leader Relationship Specialty Start Date End Date Jeff Strickland MD [address] [place] [address] PCP - General 03/05/18 [place] [address] [place] [id number] Orthopedic Surgery 03/28/17 documented as of this encounter
--- OUTSIDE RECORDS SUMMARY | 2024-11-02 13:45 | XMS_ITS | Encounter Summary ---
Author Organization [facility] Address [address] [place] [address] Care Team Providers Care Historic Interpreter Name Role Phone Deandre Bojorquez MD Unavailable [phone] Jeff Strickland MD Primary Care Provider [phone] Reason for Referral * Radiology Services (Routine) - Open Specialty Diagnoses / Procedures Referred By Contac t Referred To Contact Interventional Radiology Diagnoses PAD (peripheral artery disease) Amputation of left great toe Procedures IR Angiogram Left Leg Elroy Holcomb MD [address] [place] [address] [place] [address] Phone: tel: fax: [facility] IVR [address] [place] [address] Phone: tel: fax: Referral ID Status Reason Start Date Expiration Date Visits Re quested Visits Authorized [id number] Open 11/02/2024 11/02/2025 1 1 Reason for Visit * Reason Comments Post-Op Encounter Details Date Type Department Care Team (Late st Contact Info) Description 11/02/2024 1:45 PM CDT Office Visit [facility] - Vascular Surgery [address] [place] [address], [place] [address] Elroy Holcomb MD [address] [place] [address] PAD (peripheral artery disease) (Primary Dx); Amputation [...] Recorded Patient Health Questionnaire-2 Score 6 10/05/2024 [facility] of Occupat ional Health - Occupational Stress [...] any time in the past 12 m [facility], were you homeless or living in a skilled nursing (including now)? 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 Gender Identity Male 07/02/2021 2:37 PM CDT [...] Call the office with anyquestions or concerns [phone] documented in this encounter Plan of Treatment Upcoming Encounters Date Type Department Care Team (Late st Contact Info) Description 12/06/2024 10:40 AM CDT Office Visit [facility] - Endocrinology [address] [facility], [place] [address] Marbin Flores MD [address] [facility] DIV OF [place]BD [place] [address] Niraj Turner MD [address] [place] [address] Scheduled Orders Name Type Priority Associated Diagnoses Orde r Schedule IR Angiogram Left Leg Imaging Routine PAD (peripheral artery disease) Amputation of left great toe 1 Occurrences starting 11/02/2024 until 11/02/2025 documented as of this encounter Visit Diagnoses Diagnosis PAD (peripheral artery disease)- Primary Unspecified disorders of arteries and arterioles Amputation of left great toe documented in this encounter Care Teams Historic Interpreter Relationship Specialty Start Date End Date Jeff Strickland MD [address] [place] [address] PCP - General 03/05/18 [place] [address] [place] [id number] Orthopedic Surgery 03/28/17 documented as of this encounter
--- OUTSIDE RECORDS SUMMARY | 2024-11-02 22:46 | XMS_ITS | Encounter Summary ---
Author Organization [facility] Address [address] [place] [address] Care Team Providers Care Youth Court Judge Name Role Phone Deandre Bojorquez MD Unavailable [phone] Jeff Strickland MD Primary Care Provider [phone] Encounter Details Date Type Department Care Team (Late st Contact Info) Description 02/04/2024 Lab Requisition [facility] [address] [place] [id number] Alan Davenport MD [facility] [facility] DISTRICT OF [place] [address] Social History Tobacco Use Types Packs/Day Years Used Date Smoking Tobacco: Never Smokeless Tobacco: Never Alcohol Use Standard Drinks/Week Comments Not Currently 0 (1 standard drink = 0.6 oz pur e alcohol) socially in past Sex and Gender Information Value Date Recorded Sex Assigned at Male 07/02/2021 2:37 PM CDT Legal Sex Male 10:14 PM 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 [address] [place] [address] documented as of this encounter Procedures Procedure Name Priority Date/Time Associated Diagnosis Comments HOLD HLA SPECIMEN Routine 01/27/2024 3:2 3 PM OUTBOARD MOTOR MECHANIC documented in this encounter Results * HOLD HLA SPECIMEN (01/27/2024 3:23 PM OUTBOARD MOTOR MECHANIC) Hold HLA Specimen 02/04/2024 4:31 PM OUTBOARD MOTOR MECHANIC [facility] Comment:The Hold HLA specime n has been received into the lab and will be held for 5 years at 4 degrees. Blood BLOOD SPECIMEN / Unknown 01/27/2024 3:23 PM OUTBOARD MOTOR MECHANIC 02/04/2024 3:23 PM OUTBOARD MOTOR MECHANIC Alan Davenport MD LAB - BLOOD BANK ORDERABLES F inal Result [facility] [address] [place] [address], [facility] documented in this encounter Visit Diagnoses Not on filedocumented in this encounter Additional Health Concerns Infection Onset Date Last Indicated Resolved Time COVID-19 Under Investigation 09/13/2024 09/13/2024 09/13/2024 6:36 AM CDT documented as of this encounter Care Teams Youth Court Judge Relationship Specialty Start Date End Date Jeff Strickland MD [address] [place] [address] PCP - General 03/05/18 [place] [address] [address] Orthopedic Surgery 03/28/17 documented as of this encounter
--- OUTSIDE RECORDS SUMMARY | 2024-11-02 22:46 | XMS_ITS | Encounter Summary ---
Author Organization [facility] Address [facility] [place] [address] Care Team Providers Care Otr Truck Driver Name Role Phone Deandre Bojorquez MD Unavailable [phone] Jeff Strickland MD Primary Care Provider [phone] Encounter Details Date Type Department Care Team (Late st Contact Info) Description 05/29/2023 Lab Requisition [facility] MAIN LAB [address] [place] [phone] Alan Davenport MD [facility] OF [place] [address] Social History Tobacco Use Types Packs/Day Years Used Date Smoking Tobacco: Never Smokeless Tobacco: Never Alcohol Use Standard Drinks/Week Comments Not Currently 0 (1 standard drink = 0.6 oz pur e alcohol) socially in past Sex and Gender Information Value Date Recorded Sex Assigned at Male 07/02/2021 2:37 PM CDT 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 Male 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 Gender Identity Male 07/02/2021 2:37 PM CDT [...] Description 12/06/2024 10:40 AM CDT Office Visit [facility] - Endocrinology [address] [facility], [place] [address] Marbin Flores MD [address] [facility] DIV OF [place] [address] Niraj Turner MD 1225 [facility] 2L [place] [address] documented as of this encounter Procedures Procedure Name Priority Date/Time Associated Diagnosis Comments HOLD HLA SPECIMEN Routine 05/21/2023 9:2 4 AM CDT documented in this encounter Results * HOLD HLA SPECIMEN (05/21/2023 9:24 AM CDT) Hold HLA Specimen 05/29/2023 10:30 AM CDT [facility] ([facility]) Comment:The Hold HLA specime n has been received into the lab and will be held for 5 years at 4 degrees. Blood BLOOD SPECIMEN / Unknown 05/21/2023 9:24 AM CDT 05/29/2023 9:24 AM CDT Alan Davenport MD LAB - BLOOD BANK ORDERABLES F inal Result [facility] ([facility]) [address] [place] [address], [facility] documented in this encounter Visit Diagnoses Not on filedocumented in this encounter Additional Health Concerns Infection Onset Date Last Indicated Resolved Time COVID-19 Under Investigation 09/13/2024 09/13/2024 09/13/2024 6:36 AM CDT documented as of this encounter Care Teams Otr Truck Driver Relationship Specialty Start Date End Date Jeff Strickland MD [address] [place] [address] PCP - General 03/05/18 [place] [address] [place] [address] Orthopedic Surgery 03/28/17 documented as of this encounter
--- OUTSIDE RECORDS SUMMARY | 2024-11-02 22:46 | XMS_ITS | Encounter Summary ---
Author Organization [facility] Address [address] [place] [address] Care Team Providers Care Die Cutter Apprentice Name Role Phone Deandre Bojorquez MD Unavailable [phone] Jeff Strickland MD Primary Care Provider [phone] Encounter Details Date Type Department Care Team (Late st Contact Info) Description 03/12/2024 Lab Requisition [facility] MAIN LAB [address] [place] [phone] Alan Davenport MD [facility] OF [place] [address] Social History Tobacco Use Types Packs/Day Years Used Date Smoking Tobacco: Never Smokeless Tobacco: Never Alcohol Use Standard Drinks/Week Comments Not Currently 0 (1 standard drink = 0.6 oz pur e alcohol) socially in past Sex and Gender Information Value Date Recorded Sex Assigned at Male 07/02/2021 2:37 PM CDT Legal Sex Male 10:14 PM 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 PATTERNMAKER Gender Identity Male 07/02/2021 2:37 PM CDT [...] Description 12/06/2024 10:40 AM CDT Office Visit [facility] - Endocrinology [address] [facility], [place] [address] Marbin Flores MD [address] [facility] DIV OF [place] [address] Niraj Turner MD 1225 [facility] 2L [place] [address] documented as of this encounter Procedures Procedure Name Priority Date/Time Associated Diagnosis Comments HOLD HLA SPECIMEN Routine 03/05/2024 1:4 0 PM ENVELOPE PATTERNMAKER documented in this encounter Results * HOLD HLA SPECIMEN (03/05/2024 1:40 PM ENVELOPE PATTERNMAKER) Hold HLA Specimen 03/12/2024 3:00 PM ENVELOPE PATTERNMAKER [facility] ([facility]) Comment:The Hold HLA specime n has been received into the lab and will be held for 5 years at 4 degrees. Blood BLOOD SPECIMEN / Unknown 03/05/2024 1:40 PM ENVELOPE PATTERNMAKER 03/12/2024 1:40 PM ENVELOPE PATTERNMAKER Alan Davenport MD LAB - BLOOD BANK ORDERABLES F inal Result [facility] [address] [place] [address], [facility] documented in this encounter Visit Diagnoses Not on filedocumented in this encounter Additional Health Concerns Infection Onset Date Last Indicated Resolved Time COVID-19 Under Investigation 09/13/2024 09/13/2024 09/13/2024 6:36 AM CDT documented as of this encounter Care Teams Die Cutter Apprentice Relationship Specialty Start Date End Date Jeff Stricklnad MD [address] [place] [address] PCP - General 03/05/18 [place] [address] [address] Orthopedic Surgery 03/28/17 documented as of this encounter
--- OUTSIDE RECORDS SUMMARY | 2024-11-02 22:46 | XMS_ITS | Patient Health Record ---
Author Organization [facility] As [facility] Address [address] [place] [address] Care Team Providers Care Booking Prizer Name Role Phone Trenton Hernandez Unavailable [phone] Reason For Referral No Information Medications Medication [...] UNIT)-FOLIC ACID 1 MG TABLET *Reorder from [facility] for eRx and Interaction Alerts* 02/26/2023 Active Azelastine HCl 137 MCG/SPRAY Solution Nasal 02/26/2023 Active Dilt-XR 240 MG Capsule Extended Release 24 Hour Oral 02/26/2023 Active Potassium Chloride ER 10 MEQ Tablet Extended Release Oral 02/26/2023 Active Mounjaro 2.5 MG/0.5ML Solution Pen-injector Subcutaneous *Reorder from [facility] for eRx and Interaction Alerts* 02/26/2023 Active Methocarbamol 500 MG Tablet Oral 02/26/2023 Active Levothyroxine Sodium 112 MCG Tablet Oral 02/26/2023 Active Atorvastatin Calcium 80 MG Tablet Oral 02/26/2023 Active Gabapentin 100 MG Capsule Oral 02/26/2023 Active SODIUM BICARBONATE 1,650 MG-CITRIC ACID 1,000 MG EFFERVESCENT TABLET *Reorder from [facility] for eRx and Interaction Alerts* 02/26/2023 Active Sevelamer Carbonate 800 MG Tablet Oral 02/26/2023 Active IPRATROPIUM BROMIDE 21 MCG (0.03 %) NASAL SPRAY *Reorder from [facility] for eRx and Interaction Alerts* 02/26/2023 Active [...] ADHESIVE PATCH, MEDICATED TOPICAL *Pick strength-form from [facility] for eRX* 02/26/2023 Active Amoxicillin-Pot Clavulanate 875-125 MG Tablet Oral 02/26/2023 Active Amoxicillin 500 MG Capsule Oral 02/26/2023 Active guanFACINE HCl ER 3 MG Tablet Extended Release 24 Hour Oral 02/26/2023 Active Tamsulosin HCl 0.4 MG Capsule Oral 02/26/2023 Active SEVELAMER HCL 800 MG TABLET *Reorder from [facility] for eRx and Interaction Alerts* 02/26/2023 Active LEVOTHYROXINE 112 MCG CAPSULE *Reorder from [facility] for eRx and Interaction Alerts* 02/26/2023 Active ULTRA-FINE SHORT PEN NEEDLE 31 gauge x 5/16 NEEDLE, DISPOSABLE MISCELLANEOUS *Reorder from [facility] for eRx and Interaction Alerts* 02/26/2023 Active Tylenol PM Extra Strength *Pick strength-form from [facility] for eRX* 02/26/2023 Active Mounjaro 5 MG/0.5ML Solution Pen-injector Subcutaneous *Reorder from [facility] for eRx and Interaction Alerts* 02/26/2023 Active [...] Date Coverage End Date [employer] [address] [place] [phone] [id number] GRACE INTERIANO Self - patient is the insured Medical (General) History Surgical History Surgery Date(Month/Year) Removal of gallbladder (78323) Cataract surgery (38628) 02/17/2013 Sinus surgery 02/17/2021 Cardiac stent 07/18/2021
--- OUTSIDE RECORDS SUMMARY | 2024-11-02 22:46 | XMS_ITS | Encounter Summary ---
Author Organization [facility] Address [address] [place] [address] Phone Care Team Providers Care Obstetrics Technician Name Role Phone Jeff Strickland MD Primary Care Provider Chan Nicholas MD Unavailable [phone] Alan Mccall MD Unavailable [phone] Lorna Lantigua MD Unavailable Juliette Savage RN Unavailable [phone] Pepito Haro MD PhD Unavailable [phone] Solange Guido MD Unavailable Letha Gil RN Unavailable Encounter Details Date Type Department Care Team (Late st Contact Info) Description 05/02/2021 Ophth Exam [facility] Medicine Ophthalmology [address] [place] [address] 1st [place] [id number] Corina Ventura MD PhD [address] [address] Social History Tobacco Use Types [...] on file Legal Sex Male 2:23 AM PRINCIPAL PRODUCT MANAGER Gender Identity Not on file Sexual [...] COVID: Suspected 03/24/2023 03/24/2023 03/24/2023 5:45 PM PRINCIPAL PRODUCT MANAGER COVID19 03/24/2023 03/24/2023 04/08/2023 3:06 AM PRINCIPAL PRODUCT MANAGER COVID: Recovered Comment:Added based on recent COVID infection. 04/08/2023 04/10/2023 07/07/2023 3:06 AM C DT COVID: Suspected 04/10/2024 04/10/2024 04/11/2024 1:24 AM PRINCIPAL PRODUCT MANAGER C. difficile suspected 04/11/2024 04/11/202404/11 1:21 PM PRINCIPAL PRODUCT MANAGER documented as of this encounter Eye Exam [...] arcade Normal Periphery Normal Normal Care Teams Obstetrics Technician Relationship Specialty Start Date End Date Jeff Strickland MD [address] [address] PCP - General Family Medicine 04/02/18 Chan Nicholas MD [address] [place] [address] [id number] Consulting Physician Gastroenterology 11/24/18 Alan Mccall MD [address] [place] [address] [address] Referring Physician Nephrology 11/24/18 Lorna Lantigua MD [facility] [address] [address] Consulting Physician Cardiology 11/24/18 07/22/23 Juliette Savage, RN [address] [place] [address] Nurse Navigator 06/04/21 03/14/22 Pepito Haro MD PhD [address] [place] [address] Consulting Physician Neurosurgery 12/03/22 Solange Guido MD [address] [facility] [address] [place] [address] Referring Physician Cardiovascular Disease 07/23/23 Letha Gil, RN 45[address] [facility] [address] [place] [address] SHOP Outpatient Scrap Worker 04/14/24 04/18/24 documented as of this encounter
--- OUTSIDE RECORDS SUMMARY | 2024-11-02 22:46 | XMS_ITS | Encounter Summary ---
Author Organization [facility] Address [facility] [place] [address] Care Team Providers Care Or Director Name Role Phone Deandre Bojorquez MD Unavailable [phone] Jeff Strickland MD Primary Care Provider [phone] Encounter Details Date Type Department Care Team (Late st Contact Info) Description 11/21/2023 Lab Requisition [facility] MAIN LAB [address] [place] [phone] Alan Davenport MD [facility]1 [facility] [place] [address] Social History Tobacco Use Types Packs/Day Years Used Date Smoking Tobacco: Never Smokeless Tobacco: Never Alcohol Use Standard Drinks/Week Comments Not Currently 0 (1 standard drink = 0.6 oz pur e alcohol) socially in past Sex and Gender Information Value Date Recorded Sex Assigned at Male 07/02/2021 2:37 PM CDT Legal Sex Male 10:14 PM CAREER DEVELOPMENT COORDINATOR/TEACHER Gender Identity Male 07/02/2021 2:37 PM CDT [...] Description 12/06/2024 10:40 AM CDT Office Visit [facility] - Endocrinology [address] [facility], [place] [address] Marbin Flores MD 1201 [facility] DIV [place] [address] Niraj Turner MD 1225 [facility] 2L [place] [address] documented as of this encounter Procedures Procedure Name Priority Date/Time Associated Diagnosis Comments HOLD HLA SPECIMEN Routine 11/18/2023 12: 16 PM CDT documented in this encounter Results * HOLD HLA SPECIMEN (11/18/2023 12:16 PM CDT) Hold HLA Specimen 11/21/2023 1:31 PM CDT [facility] (NORTH) Comment:The Hold HLA specime n has been received into the lab and will be held for 5 years at 4 degrees. Blood BLOOD SPECIMEN / Unknown 11/18/2023 12:16 PM CDT 11/21/2023 12:17 PM CDT Alan Davenport MD LAB - BLOOD BANK ORDERABLES F inal Result [facility] [address] [place] [address], [facility] documented in this encounter Visit Diagnoses Not on filedocumented in this encounter Additional Health Concerns Infection Onset Date Last Indicated Resolved Time COVID-19 Under Investigation 09/13/2024 09/13/2024 09/13/2024 6:36 AM CDT documented as of this encounter Care Teams Or Director Relationship Specialty Start Date End Date Jeff Strickland MD [address] [place] [address] PCP - General 03/05/18 [place] [address] [place] [address] Orthopedic Surgery 03/28/17 documented as of this encounter
--- OUTSIDE RECORDS SUMMARY | 2024-11-02 22:46 | XMS_ITS | Encounter Summary ---
Author Organization [facility] Address [address] [place] [address] Care Team Providers Care Carpet Or Rug Layer Helper Name Role Phone Deandre Bojorquez MD Unavailable [phone] Jeff Strickland MD Primary Care Provider [phone] Encounter Details Date Type Department Care Team (Late st Contact Info) Description 07/31/2023 Lab Requisition [facility] MAIN LAB [address] [place] [phone] Alan Davenport MD [facility] [place] [address] Social History Tobacco Use Types Packs/Day Years Used Date Smoking Tobacco: Never Smokeless Tobacco: Never Alcohol Use Standard Drinks/Week Comments Not Currently 0 (1 standard drink = 0.6 oz pur e alcohol) socially in past Sex and Gender Information Value Date Recorded Sex Assigned at Male 07/02/2021 2:37 PM CDT Legal Sex Male 10:14 PM CLINICAL ANALYST Gender Identity Male 07/02/2021 2:37 PM [...] 10:40 AM CDT Office Visit [facility] - Endocrinology 12[address] [facility], [place] [address] Marbin Flores MD [address] [facility] DIV [place] [address] Niraj Turner MD 1225 [facility] 2L [place] [address] documented as of this encounter Procedures Procedure Name Priority Date/Time Associated Diagnosis Comments HOLD HLA SPECIMEN Routine 07/23/2023 2:0 5 PM CDT documented in this encounter Results * HOLD HLA SPECIMEN (07/23/2023 2:05 PM CDT) Hold HLA Specimen 07/31/2023 3:32 PM CDT [facility] ([facility]) Comment:The Hold HLA specime n has been received into the lab and will be held for 5 years at 4 degrees. Blood BLOOD SPECIMEN / Unknown 07/23/2023 2:05 PM CDT 07/31/2023 2:06 PM CDT Alan Davenport MD LAB - BLOOD BANK ORDERABLES F inal Result [facility] ([facility]) [address] [place] [address], [facility] documented in this encounter Visit Diagnoses Not on filedocumented in this encounter Additional Health Concerns Infection Onset Date Last Indicated Resolved Time COVID-19 Under Investigation 09/13/2024 09/13/2024 09/13/2024 6:36 AM CDT documented as of this encounter Care Teams Carpet Or Rug Layer Helper Relationship Specialty Start Date End Date Jeff Strickland MD [address] [place] [address] PCP - General 03/05/18 [place] [address] [place] [address] Orthopedic Surgery 03/28/17 documented as of this encounter
--- OUTSIDE RECORDS SUMMARY | 2024-11-02 22:46 | XMS_ITS | Clinical Summary ---
Author Organization [facility] Address [address] [place] [address] Care Team Providers Care Chair Pad Maker Name Role Phone Jeff Strickland MD [...] mouth daily. Active nystatin-triamc inolone (MYCOLOG II) 365587-3.1 UNIT/GM-% Cream 5 Active ondansetron (ZOFRAN-ODT) 4 [...] 10/29/2024 Telephone [facility] - Cardiology [facility] #2 [place] [address] Suly Smith APRN, DIALYSIS EQUIPMENT TECHNICIAN 10/15/2024 Telephone [facility] Cardiology [facility] [address] [place] [address] Hannah Goodman MD 10/14/2024 2:40 PM CDT Clinical Support [facility] #[address] [place] [phone] [facility] Cardiology Dressing change (Primary Dx) Discharge [...] Medical Group - Cardiology - [facility] #[facility] [place] [address] Hannah Goodman MD 2 [facility] N[facility] [address] [place] [address] 04/11/2025 11:30 AM PLUMBING ASSEMBLER INSTALLER Office Visit [facility] - Cardiology - [place] #2 [place] [address] Maylin Cutler, 2 [facility] [address] [place] [address] Health Maintenance Due Date Last Done Comments [...] topic Insurance MEDICARE C AETNA Care Teams Chair Pad Maker Relationship Specialty Start Date End Date Jeff Strickland MD [address] [place] [address] PCP - General Family Medicine 10/14/24
--- OUTSIDE RECORDS SUMMARY | 2024-11-02 22:46 | XMS_ITS | Encounter Summary ---
Author Organization [facility] Address [address] [place] [address] Care Team Providers Care Glass Blowing Lathe Operator Name Role Phone Deandre Bojorquez MD Unavailable [phone] Jeff Strickland MD Primary Care Provider [phone] Encounter Details Date Type Department Care Team (Late st Contact Info) Description 10/28/2023 Lab Requisition [facility] MAIN LAB [address] [place] [phone] Alan Davenport MD [facility] [place] [address] Social History Tobacco Use Types Packs/Day Years Used Date Smoking Tobacco: Never Smokeless Tobacco: Never Alcohol Use Standard Drinks/Week Comments Not Currently 0 (1 standard drink = 0.6 oz pur e alcohol) socially in past Sex and Gender Information Value Date Recorded Sex Assigned at Male 07/02/2021 2:37 PM CDT Legal Sex Male 10:14 PM SUIT MAKER Gender Identity Male 07/02/2021 2:37 PM [...] 10:40 AM CDT Office Visit [facility] Group - Endocrinology 12[address] [facility], [place] [address] Marbin Flores MD 1201 [facility] DIV [place] [address] Niraj Turner MD 1225 [facility] 2L [place] [address] documented as of this encounter Procedures Procedure Name Priority Date/Time Associated Diagnosis Comments HOLD HLA SPECIMEN Routine 10/22/2023 3:5 0 PM CDT documented in this encounter Results * HOLD HLA SPECIMEN (10/22/2023 3:50 PM CDT) Hold HLA Specimen 10/28/2023 5:00 PM CDT [facility] ([facility]) Comment:The Hold HLA specime n has been received into the lab and will be held for 5 years at 4 degrees. Blood BLOOD SPECIMEN / Unknown 10/22/2023 3:50 PM CDT 10/28/2023 3:50 PM CDT Alan Davenport MD LAB - BLOOD BANK ORDERABLES F inal Result [facility] ([facility]) [address] [place] [address], [facility] documented in this encounter Visit Diagnoses Not on filedocumented in this encounter Additional Health Concerns Infection Onset Date Last Indicated Resolved Time COVID-19 Under Investigation 09/13/2024 09/13/2024 09/13/2024 6:36 AM CDT documented as of this encounter Care Teams Glass Blowing Lathe Operator Relationship Specialty Start Date End Date Jeff Strickland MD [address] [place] [address] PCP - General 03/05/18 [place] [address] [place] [address] Orthopedic Surgery 03/28/17 documented as of this encounter
--- OUTSIDE RECORDS SUMMARY | 2024-11-02 22:46 | XMS_ITS | Encounter Summary ---
Author Organization [facility] Address [address] [place] [address] Care Team Providers Care Product Evangelist Name Role Phone Deandre Bojorquez MD Unavailable [phone] Jeff Strickland MD Primary Care Provider [phone] Encounter Details Date Type Department Care Team (Late st Contact Info) Description 09/30/2023 Lab Requisition [facility] MAIN LAB [address] [place] [phone] Alan Davenoprt MD [facility]1 [facility] OF [place] [address] Social History Tobacco Use Types Packs/Day Years Used Date Smoking Tobacco: Never Smokeless Tobacco: Never Alcohol Use Standard Drinks/Week Comments Not Currently 0 (1 standard drink = 0.6 oz pur e alcohol) socially in past Sex and Gender Information Value Date Recorded Sex Assigned at Male 07/02/2021 2:37 PM CDT Legal Sex Male 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 2L [place] [address] documented as of this encounter Procedures Procedure Name Priority Date/Time Associated Diagnosis Comments HOLD HLA SPECIMEN Routine 09/24/2023 3:2 7 PM CDT documented in this encounter Results * HOLD HLA SPECIMEN (09/24/2023 3:27 PM CDT) Hold HLA Specimen 09/30/2023 4:32 PM CDT [facility] ([facility]) Comment:The Hold HLA specime n has been received into the lab and will be held for 5 years at 4 degrees. Blood BLOOD SPECIMEN / Unknown 09/24/2023 3:27 PM CDT 09/30/2023 3:27 PM CDT Alan Davenport MD LAB - BLOOD BANK ORDERABLES F inal Result [facility] ([facility]) [address] [place] [address], [facility] documented in this encounter Visit Diagnoses Not on filedocumented in this encounter Additional Health Concerns Infection Onset Date Last Indicated Resolved Time COVID-19 Under Investigation 09/13/2024 09/13/2024 09/13/2024 6:36 AM CDT documented as of this encounter Care Teams Product Evangelist Relationship Specialty Start Date End Date Jeff Strickland MD [address] [place] [address] PCP - General 03/05/18 [place] [address] [place] [address] Orthopedic Surgery 03/28/17 documented as of this encounter
--- OUTSIDE RECORDS SUMMARY | 2024-11-02 22:46 | XMS_ITS | Patient Health Record ---
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 He denies tobacco, alcohol, or illicit drug abuse The patient is retired. 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 He denies tobacco, alcohol, or illicit drug abuse The patient is retired. 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 He denies tobacco, alcohol, or illicit drug abuse The patient is retired. 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 He denies tobacco, alcohol, or illicit drug abuse The patient is retired. 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 He denies tobacco, alcohol, or illicit drug abuse The patient is retired. 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 He denies tobacco, alcohol, or illicit drug abuse The patient is retired. 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 He denies tobacco, alcohol, or illicit drug abuse The patient is retired. 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 He denies tobacco, alcohol, or illicit drug abuse The patient is retired. 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 He denies tobacco, alcohol, or illicit drug abuse The patient is retired. 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 He denies tobacco, alcohol, or illicit drug abuse The patient is retired. 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 He denies tobacco, alcohol, or illicit drug abuse The patient is retired. 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 He denies tobacco, alcohol, or illicit drug abuse The patient is retired. 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 He denies tobacco, alcohol, or illicit drug abuse The patient is retired. 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) Active confirmed Localized, primary osteoarthritis of the shoulder region (149239680) Problem Pain in left hip (M25.552) Active confirmed Pain of left hi p joint (finding) (586010898392648) Problem Spondylosis without myelopathy or radiculopathy, lumbar region (M47.816) Active confirmed Lumbosacral spondylosis without myelopathy (70241434) Problem Other intervertebral disc degeneration, lumbar region (M51.36) Active confirmed Degeneration of lumbar intervertebral disc (65716134) Problem Radiculopathy, lumbar region (M54.16) Active confirmed Lumbar radiculopathy (126924217) Problem Radiculopathy, lumbosacral region (M54.17) Active confirmed Lumbosacral radiculopathy (3326975) Problem Osseous stenosis of neural canal of lumbar region (M99.33) Active confirmed Spinal stenosis of lumbar region (98055114) Problem alf (current) use of anticoagulants (Z79.01) Active confirmed Long-term curre nt use of anticoagulant (337961711) Problem Other intervertebral disc degeneration, lumbar region [...] Location Date Provider Diagnosis [facility] [address] [place] [address] 01/12/2024 Sergio Stynowick Radiculopathy, lumba r region M54.16 ; Radiculopathy, lumbosacral region M54.17 ; Other chest pain R07.89 ; Other intervertebral disc degeneration, lumbar region M51.36 ; 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 ; Spondylosis without myelopathy or radiculopathy, lumbar region M47.816 and alf (current) use of anticoagulants Z79.01 [facility] [address] [place] [address] 01/19/2024 Sergio Stynowick Radiculopathy, lumba r region M54.16 ; Other intervertebral disc degeneration, lumbar region with discogenic back pain and lower extremity pain M51.362 and 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 [facility] [address] [place] [address] 02/03/2024 Sergio Stynowick Other chest pain R07.89 ; Pain in left knee M25.562 ; Radiculopathy, lumbar region M54.16 ; Other intervertebral disc degeneration, lumbar region M51.36 ; 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 ; Spondylosis without myelopathy or radiculopathy, lumbar region M47.816 and alf (current) use of anticoagulants Z79.01 [facility] [address] [place] [address] 03/03/2024 Sergio Stynowick Pain in left knee M25.562 ; Primary osteoarthritis, unspecified shoulder M19.019 ; Other chest pain R07.89 ; Radiculopathy, lumbar region M54.16 ; Other intervertebral disc degeneration, lumbar region M51.36 ; 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 ; Spondylosis without myelopathy or radiculopathy, lumbar region M47.816 ; terminal makeup operator (current) use of anticoagulants Z79.01 ; Pain in right shoulder M25.511 and Pain in left shoulder M25.512 [facility] [address] [place] [address] 03/08/2024 Sergio Stynowick Primary osteoarthritis, unspecified shoulder M19.019 [facility] [address] [place] [address] 03/31/2024 Sergio Schmitzick ASSESSMENTS Encounter Date Diagnosis [...] of lumbar region (ICD-10 - M99.33) 01/12/2024 terminal makeup operator (current) use of anticoagulants (ICD-10 - Z79.01) The patient was instructed to discontinue aspirin for 6 days prior to the procedure. I made the patient aware that he will be at an increased risk for a thromboembolic event during this time and he is willing to accept this risk. The patient was instructed to notify his primary care physician and/or lumber sorter to obtain clearance prior to discontinuing this medication. 02/03/2024 alf (current) use of anticoagulants (ICD-10 - Z79.01) 03/03/2024 Spondylosis without myelopathy or radiculopathy, lumbar region (ICD-10 - M47.816) 03/03/2024 alf (current) use of anticoagulants (ICD-10 - [...] Coverage End Date [employer] MEDICARE [address] [place] [address] [id number] GRACE INTERIANO Self - patient is the insured MEDICAL (GENERAL) HISTORY Medical History History ICD Code Hypertension Hypothyroidism Diabetes type 2 Gastroesophageal reflux disease (GERD) Renal cell cancer Chronic kidney disease stage 4 Sleep apnea CHF Surgical History Surgery Date(Month/Year) Right total knee arthroplasty 08/2015 Cholecystectomy Hernia repair 2019 Cardiac stent 07/2020
--- OUTSIDE RECORDS SUMMARY | 2024-11-02 22:46 | XMS_ITS | Encounter Summary ---
Author Organization [facility] Address [address] [place] [address] Care Team Providers Care Cold Roll Catcher Name Role Phone Deandre Bojorquez MD Unavailable [phone] Jeff Strickland MD Primary Care Provider [phone] Encounter Details Date Type Department Care Team (Late st Contact Info) Description 02/07/2023 Lab Requisition [facility] MAIN LAB [address] [place] [phone] Alan Davenport MD [facility] [place] [address] Social History Tobacco Use Types Packs/Day Years Used Date Smoking Tobacco: Never Smokeless Tobacco: Never Alcohol Use Standard Drinks/Week Comments Not Currently 0 (1 standard drink = 0.6 oz pur e alcohol) socially in past Sex and Gender Information Value Date Recorded Sex Assigned at Male 07/02/2021 2:37 PM CDT Legal Sex Male 10:14 PM PHYSICAL CHEMISTRY PROFESSOR Gender Identity Male 07/02/2021 2:37 PM [...] Description 12/06/2024 10:40 AM CDT Office Visit [facility] - Endocrinology [address] [facility], [place] [address] Marbin Flores MD [address] [facility] DIV [place] [address] Niraj Turner MD [address] [facility] 2L [place] [address] documented as of this encounter Procedures Procedure Name Priority Date/Time Associated Diagnosis Comments HOLD HLA SPECIMEN Routine 2023 7:5 8 AM PHYSICAL CHEMISTRY PROFESSOR documented in this encounter Results * HOLD HLA SPECIMEN (2023 7:58 AM PHYSICAL CHEMISTRY PROFESSOR) Hold HLA Specimen 02/07/2023 9:01 AM PHYSICAL CHEMISTRY PROFESSOR [facility] Comment:The Hold HLA specime n has been received into the lab and will be held for 5 years at 4 degrees. Blood BLOOD SPECIMEN / Unknown 2023 7:58 AM PHYSICAL CHEMISTRY PROFESSOR 02/07/2023 7:59 AM PHYSICAL CHEMISTRY PROFESSOR Alan Davenport MD LAB - BLOOD BANK ORDERABLES F inal Result [facility] [address] [place] [address], [facility] documented in this encounter Visit Diagnoses Not on filedocumented in this encounter Additional Health Concerns Infection Onset Date Last Indicated Resolved Time COVID-19 Under Investigation 09/13/2024 09/13/2024 09/13/2024 6:36 AM CDT documented as of this encounter Care Teams Cold Roll Catcher Relationship Specialty Start Date End Date Jeff Strickland MD [address] [place] [address] PCP - General 03/05/18 [place] [address] [address] Orthopedic Surgery 03/28/17 documented as of this encounter
--- OUTSIDE RECORDS SUMMARY | 2024-11-02 22:46 | XMS_ITS | Encounter Summary ---
Author Organization [facility] Address [facility] [place] [address] Care Team Providers Care Mathematics Improvement Teacher Name Role Phone Deandre Bojorquez MD Unavailable [phone] Jeff Strickland MD Primary Care Provider [phone] Encounter Details Date Type Department Care Team (Late st Contact Info) Description 04/10/2023 Lab Requisition [facility] MAIN LAB [address] [place] [phone] Alan Davenport MD [facility] [place] [address] Social History Tobacco Use Types Packs/Day Years Used Date Smoking Tobacco: Never Smokeless Tobacco: Never Alcohol Use Standard Drinks/Week Comments Not Currently 0 (1 standard drink = 0.6 oz pur e alcohol) socially in past Sex and Gender Information Value Date Recorded Sex Assigned at Male 07/02/2021 2:37 PM CDT Legal Sex Male 10:14 PM SENIOR MECHANICAL DESIGN ENGINEER Gender Identity Male 07/02/2021 2:37 PM [...] 10:40 AM CDT Office Visit [facility] - Endocrinology [address] [facility], [place] [address] Marbin Flores MD [address] [facility] DIV [place] [address] Niraj Turner MD [address] [facility] 2L [place] [address] documented as of this encounter Procedures Procedure Name Priority Date/Time Associated Diagnosis Comments HOLD HLA SPECIMEN Routine 04/02/2023 3:0 1 PM SENIOR MECHANICAL DESIGN ENGINEER documented in this encounter Results * HOLD HLA SPECIMEN (04/02/2023 3:01 PM SENIOR MECHANICAL DESIGN ENGINEER) Hold HLA Specimen 04/10/2023 4:01 PM SENIOR MECHANICAL DESIGN ENGINEER [facility] Comment:The Hold HLA specime n has been received into the lab and will be held for 5 years at 4 degrees. Blood BLOOD SPECIMEN / Unknown 04/02/2023 3:01 PM SENIOR MECHANICAL DESIGN ENGINEER 04/10/2023 3:01 PM SENIOR MECHANICAL DESIGN ENGINEER Alan Davenport MD LAB - BLOOD BANK ORDERABLES F inal Result [facility] [address] [place] [address], [facility] documented in this encounter Visit Diagnoses Not on filedocumented in this encounter Additional Health Concerns Infection Onset Date Last Indicated Resolved Time COVID-19 Under Investigation 09/13/2024 09/13/2024 09/13/2024 6:36 AM CDT documented as of this encounter Care Teams Mathematics Improvement Teacher Relationship Specialty Start Date End Date Jeff Strickland MD [address] [place] [address] PCP - General 03/05/18 [place] [address] [address] Orthopedic Surgery 03/28/17 documented as of this encounter
--- OUTSIDE RECORDS SUMMARY | 2024-11-02 22:47 | XMS_ITS | Encounter Summary ---
Author Organization [facility] Address [address] [place] [address] Care Team Providers Care Plant Biology Professor Name Role Phone Deandre Bojorquez MD Unavailable [phone] Jeff Strickland MD Primary Care Provider [phone] Encounter Details Date Type Department Care Team (Late st Contact Info) Description 04/29/2024 Lab Requisition [facility] MAIN LAB [address] [place] [phone] Alan Davenport MD 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 2L [place] [address] documented as of this encounter Procedures Procedure Name Priority Date/Time Associated Diagnosis Comments HOLD HLA SPECIMEN Routine 04/27/2024 1:4 8 PM CDT documented in this encounter Results * HOLD HLA SPECIMEN (04/27/2024 1:48 PM CDT) Hold HLA Specimen 04/29/2024 3:02 PM CDT [facility] Comment:The Hold HLA specime n has been received into the lab and will be held for 5 years at 4 degrees. Blood BLOOD SPECIMEN / Unknown 04/27/2024 1:48 PM CDT 04/29/2024 1:49 PM CDT Alan Davenport MD LAB - BLOOD BANK ORDERABLES F inal Result [facility] [address] [place] [address], [facility] documented in this encounter Visit Diagnoses Not on filedocumented in this encounter Additional Health Concerns Infection Onset Date Last Indicated Resolved Time COVID-19 Under Investigation 09/13/2024 09/13/2024 09/13/2024 6:36 AM CDT documented as of this encounter Care Teams Plant Biology Professor Relationship Specialty Start Date End Date Jeff Strickland MD [address] [place] [address] PCP - General 03/05/18 [place] [address] [facility] [address] [place] [address] Orthopedic Surgery 03/28/17 documented as of this encounter
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
--- OUTSIDE RECORDS SUMMARY | 2024-11-02 22:47 | XMS_ITS | Clinical Summary ---
Author Organization [facility] Address [address] [place] [address] Phone Care Team Providers Care Ring Packer Name Role Phone Jeff Strickland MD Primary Care Provider [phone] Allergies No known active allergies Medications pantoprazole [...] tablet Take 112 mcg by mouth daily tent finisher. Active aspirin (ANGELLA) 325 mg tablet Take 325 mg by mouth daily. Active Vit C-Vit F-Ohcgqi-RpUd-L utein (PRESERVISION) 226 mg-200 unit -5 mg-0.8 [...] Comments Blood Pressure 167/77 02/04/2019 9:16 AM VERSE WRITER Pulse 64 02/04/2019 9:16 AM VERSE WRITER Temperature 36.5 C (97.7 F) 02/04/2019 9:16 AM VERSE WRITER Respiratory Rate 16 02/04/2019 9:16 AM VERSE WRITER Oxygen Saturation 97% 02/04/2019 9:16 AM VERSE WRITER Inhaled Oxygen Concentration - - Weight 113.4 kg (250 lb) 02/04/2019 9:16 AM VERSE WRITER Height 175.3 cm (5' 9) 02/04/2019 9:16 AM VERSE WRITER Body Mass Index 36.92 02/04/2019 9:16 AM VERSE WRITER Plan of Treatment Health Maintenance Due Date [...] ACCESS/TRUE BLUE PPO AETNA MEDICARE SUPPLEMENT PPO [facility] BLUE ACCESS/TRUE BLUE PPO Care Teams Ring Packer Relationship Specialty Start Date End Date Jeff Strickland MD [address] [facility] [address] [place] [address] PCP - General Family Practice 01/01/19
--- OUTSIDE RECORDS SUMMARY | 2024-11-02 22:47 | XMS_ITS | Encounter Summary ---
Author Organization [facility] Address [address] [facility] [place] [address] Care Team Providers Care Biological Technical Officer Name Role Phone Deandre Bojorquez MD Unavailable Jeff Strickland MD Primary Care Provider [phone] Encounter Details Date Type Department Care Team (Latest Contact Info) Description 11/02/2024 Travel Social History Tobacco Use Types Packs/Day Years [...] Recorded Patient Health Questionnaire-2 Score 6 10/05/2024 [facility] of Occupat ional [facility] - Occupational Stress Questionnaire Answer Date Recorded [...] any time in the past 12 m [facility], were you homeless or living in a retirement (including now)? 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 [...] Francy Vigil RN documented in this encounter Plan of Treatment Upcoming Encounters Date Type Department Care Team (Late st Contact Info) Description 12/06/2024 10:40 AM CDT Office Visit [facility] - Endocrinology [address] [place] [address] Marbin Flores MD [address] DIV [place] [address] Niraj Turner MD [address] [place] [address] documented as of this encounter Visit Diagnoses Not on filedocumented in this encounter Care Teams Biological Technical Officer Relationship Specialty Start Date End Date Jeff Strickland MD [address] [place] [address] PCP - General 03/05/18 [place] [address] [address] Orthopedic Surgery 03/28/17 documented as of this encounter
--- OUTSIDE RECORDS SUMMARY | 2024-11-02 22:47 | XMS_ITS | Encounter Summary ---
Author Organization [facility] Address [address] [place] [address] Care Team Providers Care Ampoule Filler Name Role Phone Jeff Strickland MD Primary Care Provider Chan Nicholas MD Unavailable [phone] Alan Mccall MD Unavailable [phone] Pepito Haro MD PhD Unavailable Solange Guido MD Unavailable [phone] Encounter Details Date Type Department Care Team (Late st Contact Info) Description 07/28/[address] [facility] Health Information Management [address] [place] [address] Scanning, Provider Social History Tobacco Use Types Packs/Day Years Used Date Smoking Tobacco: Never Smokeless Tobacco: Never Alcohol Use Standard Drinks/Week Comments Yes 0 (1 standard drink = 0.6 oz pur e alcohol) rarely [facility] Utilities Answer Date Recorded In the past 12 months has [employer] electric, gas, oil, or water company threatened [...] often do you attend chur ch or hoahaoism services? 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 Gender Identity Not on file Sexual [...] on filedocumented in this encounter Care Teams Ampoule Filler Relationship Specialty Start Date End Date Jeff Strickland MD [facility] [address] [place] [id number] PCP - General Family Medicine 04/02/18 Chan Nicholas MD [facility] [address] [address] Consulting Physician Gastroenterology 11/24/18 Alan Mccall MD [facility] [address] [address] Referring Physician Nephrology 11/24/18 Pepito Haro MD PhD [address] [place] [address] Consulting Physician Neurosurgery 12/03/22 Solange Guido MD [address] [facility] [address] [place] [address] Referring Physician Cardiovascular Disease 07/23/23 documented as of this encounter
--- OUTSIDE RECORDS SUMMARY | 2024-11-02 22:47 | XMS_ITS | Encounter Summary ---
Author Organization [facility] Address [address] [facility] [place] [address] Care Team Providers Care Processing Inspector Name Role Phone Deandre Bojorquez MD Unavailable [phone] Jeff Strickland MD Primary Care Provider [phone] Reason for Visit * Reason Onset Date Comments Post-Op 09/03/2024 Encounter Details Date Type Department Care Team (Late st Contact Info) Description 09/03/2024 Telephone [facility] - Cardiology [address] [facility], [facility] [address] [place] [address] Hannah Goodman MD [address] [facility] C[facility]Y [address] [place] [address] Post-Op Social History Tobacco Use Types Packs/Day [...] and heating? Not hard at all 09/04/2024 [facility] [place] of Occupat ional Health - Occupational Stress [...] any time in the past 12 m [facility], were you homeless or living in a alf (including now)? 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 Gender Identity Male 07/02/2021 2:37 PM CDT [...] confused post op Patient Call Back number: [phone] documented in this encounter Plan of Treatment Upcoming Encounters Date Type Department Care Team (Late st Contact Info) Description 12/06/2024 10:40 AM CDT Office Visit [facility] - Endocrinology [facility] [facility], [place] [address] Marbin Flores MD [address] [facility] DIV OF [place] [address] Niraj Turner MD [address] [facility] [address] [place] [address] documented as of this encounter Visit Diagnoses Not on filedocumented in this encounter Additional Health Concerns Infection Onset Date Last Indicated Resolved Time COVID-19 Under Investigation 09/13/2024 09/13/2024 09/13/2024 6:36 AM CDT documented as of this encounter Care Teams Processing Inspector Relationship Specialty Start Date End Date Jeff Strickland MD [address] [place] [address] PCP - General 03/05/18 [place] [address] [address] Orthopedic Surgery 03/28/17 documented as of this encounter
--- OUTSIDE RECORDS SUMMARY | 2024-11-02 22:47 | XMS_ITS | Encounter Summary ---
Author Organization [facility] Address [address] [place] [address] Care Team Providers Care Sewage Plant Supervisor Name Role Phone Deandre Bojorquze MD Unavailable [phone] Jeff Strickland MD Primary Care Provider [phone] Encounter Details Date Type Department Care Team (Late st Contact Info) Description 06/25/2024 Lab Requisition [facility] [address] [place] [address] Alan [place] MD [facility] [place] [address] Social History Tobacco Use Types Packs/Day Years Used Date Smoking Tobacco: Never Smokeless Tobacco: Never Alcohol Use Standard Drinks/Week Comments Not Currently 0 (1 standard drink = 0.6 oz pur e alcohol) socially in past Sex and Gender Information Value Date Recorded Sex Assigned at Male 07/02/2021 2:37 PM CDT Legal Sex Male 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 Gender Identity Male 07/02/2021 2:37 PM CDT [...] Author No 08/04/2020 12:15 PM CDT Monique Suráez RN * Does person have difficulty doing [...] Description 12/06/2024 10:40 AM CDT Office Visit [facility] - Endocrinology [address] [facility], [place] [address] Marbin Flores MD [address] [facility] DIV [place] [address] Niraj Turner MD [address] [facility] [address] [place] [address] documented as of this encounter Procedures Procedure Name Priority Date/Time Associated Diagnosis Comments HOLD HLA SPECIMEN Routine 06/22/2024 11: 05 AM CDT documented in this encounter Results * HOLD HLA SPECIMEN (06/22/2024 11:05 AM CDT) Hold HLA Specimen 06/25/2024 12:32 PM CDT [facility] Comment:The Hold HLA specime n has been received into the lab and will be held for 5 years at 4 degrees. Blood BLOOD SPECIMEN / Unknown 06/22/2024 11:05 AM CDT 06/25/2024 11:05 AM CDT Alan [place] MD LAB - BLOOD BANK ORDERABLES F inal Result [facility] [address] [place] [address], [facility] documented in this encounter Visit Diagnoses Not on filedocumented in this encounter Additional Health Concerns Infection Onset Date Last Indicated Resolved Time COVID-19 Under Investigation 09/13/2024 09/13/2024 09/13/2024 6:36 AM CDT documented as of this encounter Care Teams Sewage Plant Supervisor Relationship Specialty Start Date End Date Jeff Strickland MD [address] [place] [address] PCP - General 03/05/18 [place] [address] [place] [address] Orthopedic Surgery 03/28/17 documented as of this encounter
--- OUTSIDE RECORDS SUMMARY | 2024-11-02 22:47 | XMS_ITS | Clinical Summary ---
Author Organization [facility] Address [facility] [place] [address] Care Team Providers Care Quality Assurance Engineer Name Role Phone Jeff Strickland MD Primary Care Provider [phone] Allergies Active Allergy Reactions Criticality Noted Date [...] by mouth nightly at bedtime. 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
--- OUTSIDE RECORDS SUMMARY | 2024-11-02 22:47 | XMS_ITS | Encounter Summary ---
Author Organization [facility] Address [facility]3 [facility] [place] [address] Care Team Providers Care Survey Cad Technician Name Role Phone Deandre Bojorquez MD Unavailable [phone] Jeff Strickland MD Primary Care Provider [phone] Reason for Visit * Reason Onset Date Comments Pain 10/25/2024 Appointment 10/25/2024 Encounter Details Date Type Department Care Team (Late st Contact Info) Description 10/25/2024 Telephone [facility] - Vascular Surgery [address] [place] [address], [place] [id number] Elroy Holcomb MD [address] [place] [address] [place] [address] Pain; Appointment Social History Tobacco Use Types [...] Recorded Patient Health Questionnaire-2 Score 6 10/05/2024 [facility] Occupat ional Health - [...] time in the past [address] [facility], were you homeless or living in a care home (including now)? No 09/24/2024 Sex and Gender Information Value Date Recorded Sex Assigned at Male 07/02/2021 2:37 PM CDT Legal Sex Male 10:14 PM RN REGISTRY Gender Identity Male 07/02/2021 2:37 PM CDT [...] contact the vascular surgery nurse phone number. Patient seen in clinic on 10/26/24, by Dr. Holcomb. documented in this encounter Plan of Treatment Upcoming Encounters Date Type Department Care Team (Late st Contact Info) Description 12/06/2024 10:40 AM CDT Office Visit [facility] - Endocrinology [address] [facility], [place] [address] Marbin Flores MD [address] [facility] DIV OF [place] [address] Niraj Turner MD [address] [facility] 2L [place] [address] documented as of this encounter Visit Diagnoses Not on filedocumented in this encounter Care Teams Survey Cad Technician Relationship Specialty Start Date End Date Jeff Strickland MD [address] [place] [address] PCP - General 03/05/18 [place] [address] [facility] [address] [place] [address] Orthopedic Surgery 03/28/17 documented as of this encounter
--- OUTSIDE RECORDS SUMMARY | 2024-11-02 22:47 | XMS_ITS | Encounter Summary ---
Author Organization [facility] Address [address] [place] [address] Care Team Providers Care Senior Sales Assistant Name Role Phone Deandre Bojorquez MD Unavailable [phone] Jeff Strickland MD Primary Care Provider [phone] Encounter Details Date Type Department Care Team (Late st Contact Info) Description 09/10/2024 Telephone [facility] - Centralized Scheduling [facility]1 [place] [address] Niraj Turner MD [facility] [place] [address] Social History Tobacco Use Types Packs/Day Years [...] and heating? Not hard at all 09/14/2024 [facility] [place] of Occupat [facility] - Occupational Stress Questionnaire [...] were you homeless or living in a residential (including now)? 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 Gender Identity Male 07/02/2021 2:37 PM [...] Description 12/06/2024 10:40 AM CDT Office Visit [facility] - Endocrinology [address] [place] [address], [place] [address] Marbin Flores MD [address] [facility] DIV [place] [address] Niraj Turner MD 1225 [facility] 2L [place] [address] documented as of this encounter Visit Diagnoses Not on filedocumented in this encounter Additional Health Concerns Infection Onset Date Last Indicated Resolved Time COVID-19 Under Investigation 09/13/2024 09/13/2024 09/13/2024 6:36 AM CDT documented as of this encounter Care Teams Senior Sales Assistant Relationship Specialty Start Date End Date Jeff Strickland MD [address] [place] [address] PCP - General 03/05/18 [place] [address] [place] [address] Orthopedic Surgery 03/28/17 documented as of this encounter
--- OUTSIDE RECORDS SUMMARY | 2024-11-02 22:47 | XMS_ITS | Encounter Summary ---
Author Organization [facility] Address [address] [place] [address] Care Team Providers Care Corporate Executive Name Role Phone Jeff Strickland MD Primary Care Provider Chan Nicholas MD Unavailable [phone] Alan Mccall MD Unavailable [phone] Pepito aHro MD PhD Unavailable Solange Guido MD Unavailable Encounter Details Date Type Department Care Team (Late st Contact Info) Description 07/26/2024 Orders Only [facility] Health Information Management [address] [place] [address] Scanning, Provider Social History Tobacco Use Types Packs/Day Years Used Date Smoking Tobacco: Never Smokeless Tobacco: Never Alcohol Use Standard Drinks/Week Comments Yes 0 (1 standard drink = 0.6 oz pur e alcohol) rarely [facility] Utilities Answer Date Recorded In the past 12 months has [employer] electric, gas, oil, or water company threatened [...] often do you attend chur ch or jain services? 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 Gender Identity Not on file Sexual [...] filedocumented in this encounter Care Teams Corporate Executive Relationship Specialty Start Date End Date Jeff Strickland MD [address] [place] [address] [address] [address] PCP - General Family Medicine 04/02/18 Chan Nicholas MD [facility] STATE [address] [address] Consulting Physician Gastroenterology 11/24/18 Alan Mccall MD [address] [place] [address] [address] [address] Referring Physician Nephrology 11/24/18 Pepito Haro MD PhD [facility] [employer] [address] [place] [id number] Consulting Physician Neurosurgery 12/03/22 Solange Guido MD [address] [facility] [address] [place] [address] Referring Physician Cardiovascular Disease 07/23/23 documented as of this encounter
--- OUTSIDE RECORDS SUMMARY | 2024-11-02 22:47 | XMS_ITS | Clinical Summary ---
Author Organization [facility] Address [address], [place] [address] Phone Care Team Providers Care Body Care Manager Name Role Phone Jeff Strickland MD Primary Care Provider [phone] Allergies No known active allergies Medications levothyroxine [...] tablet 3 0 Active Continuous Blood Gluc Bacteriologist Soil (FreeStyle Em [place]) device 1 each daily 0 Active Continuous Blood Gluc Sensor (FreeStyle Em Sensor System) misc 1 each once every 2 weeks 0 Active Lancets (OneTouch Delica Plus [id number]) misc OneTouch Delica Plus Lancet 33 gauge [...] 11/10/2019 Overview (12/17/2019): Kendall Carl 1955 Referring Harbor Master: Alan Mccall Dialysis Info: NOD GFR 13 Type: Time: (Not currently on dialysis) days Blood Type: O NEG Body mass index is 37.36 kg/m . ALERTS Sterile Technician: needs to establish Past Medical History: Diagnosis Date Arthropathy RA. Dr Strickland manages. 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 Becerra in [place]. CKD (chronic kidney disease), stage V Community acquired pneumonia 2018 [facility] hospitalized. Diabetes mellitus 20 years. Lantus pen. Esophageal reflux takes med Hypercholesteremia 5-10 yrs meds Hypertension takes meds Hypothyroidism meds 20 years Kidney stones 5-6 years ago had 2 in the same year. Malignancy right kidney 2012 Obstructive sleep apnea 3 years. [facility]. Angela remember doctors name Renal cell [...] Impression: It is the impression of this psychologist social that Kendall Gillris has several positive factors for Kidney transplant candidacy from a psychosocial perspective. Patient appears to have appropriate knowledge of illness. Patient has sufficient insurance coverage and stable financial situation for post transplant needs. No concerns regarding substance abuse, legal issues, or mental health needs. Patient has adequate support system and appropriate discharge plan. Plan: shore worker to provide supportive services as needed. Patient appears to be a reasonable candidate for transplant from a psychosocial perspective. -Post transplant arrangement forms are needed prior to being listed. -Updated toxicology results needed, per protocol Psychiatric Consult Recommended: No Transplant Healthcare Account Manager: Joy Tam LCSW RD: 11/09/2019 BMI= [...] use my fitness pal or my food health care coach) - Consume no more than 2000 [...] nephrectomy. 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 [id number] Immunizations Immunization Administration Dates Next Due Influenza [...] Insurance [employer] PM INTERFACED INSURANCE Care Teams Body Care Manager Relationship Specialty Start Date End Date Jeff Strickland MD [address] [facility] 162 [facility] [address] [place] [address] PCP - General Internal Medicine 07/15/18
--- OUTSIDE RECORDS SUMMARY | 2024-11-02 22:47 | XMS_ITS | Encounter Summary ---
Author Organization [facility] Address [address] [place] [address] Care Team Providers Care Crematory Attendant Name Role Phone Deandre Bojorquez MD Unavailable [phone] Jeff Strickland MD Primary Care Provider [phone] Encounter Details Date Type Department Care Team (Late st Contact Info) Description 09/24/2024 Results Follow-Up [facility] Early Admission Unit [address] [place] [id number] Angel Crook MD [address] [place] [address] Social History Tobacco Use Types Packs/Day Years [...] and heating? Not hard at all 09/24/2024 [facility] [place] of Occupat ional Health - Occupational Stress [...] time in the [facility] or living in a [facility] (including now)? 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 Gender Identity Male 07/02/2021 2:37 PM CDT [...] 12/06/2024 10:40 AM CDT Office Visit [facility] - Endocrinology [address] [place] [address], [place] [address] Marbin Flores MD [address] [facility] DIV OF ABD [place] [address] Niraj Turner MD 12[address] [facility] 2L [place] [address] documented as of this encounter Visit Diagnoses Not on filedocumented in this encounter Care Teams Crematory Attendant Relationship Specialty Start Date End Date Jeff Strickland MD [address] [place] [address] PCP - General 03/05/18 [place] [address] [place] [address] Orthopedic Surgery 03/28/17 documented as of this encounter
--- OUTSIDE RECORDS SUMMARY | 2024-11-02 22:47 | XMS_ITS ---
Author Organization [facility] Address [facility] [place] [address] Care Team Providers Care Wax Molder Name Role Phone Jeff Strickland MD Primary Care Provider Chan Nicholas MD Unavailable [phone] Alan Mccall MD Unavailable [phone] Pepito Haro MD PhD Unavailable [phone] Solange Guido MD Unavailable [phone] Active Problems Problem Noted Date Diagnosed Date [...] damage Assessment & Plan (03/09/2024 6:25 PM LABORATORY TECH): Vision OD trends mild improvement, though still [...] Since after 2019, has been seeing Dr. Hylotn and Dr. Wall. Hx of PDT OU [...] weeks and have patient return to [facility] retina in 4 weeks for repeat DFEx [...] 03/26/2021 Assessment & Plan (03/26/2021 1:17 PM LABORATORY TECH): Enlarged mild sella turcica on a routine [...] units Assessment & Plan (03/26/2021 1:17 PM LABORATORY TECH): Chronic, uncontrolled, improving A1c today 7.7 % [...] WNL Assessment & Plan (03/26/2021 1:16 PM LABORATORY TECH): Pt currently on Levothyroxine 112 mcg oral [...] 11/18/2018 Assessment & Plan (01/21/2019 2:02 PM LABORATORY TECH): Symptomatic. Will request for esophageal manometry. Continue [...] well Assessment & Plan (03/26/2021 1:16 PM LABORATORY TECH): On statin therapy Tolerating well Last lipid [...] nephrectomy. 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 [id number] Current Treatment and Therapy Plans No current [...] were not included. Kendall Carl 1955 Referring Statistical Geneticist: Alan Mccall Dialysis Info: NOD GFR 13 Type: Time: (Not currently on dialysis) days Blood Type: O NEG Body mass index is 37.36 kg/m . ALERTS Take Down Sorter: needs to establish Past Medical History: Diagnosis Date Arthropathy RA. Dr Strickland manages. 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 CKD (chronic kidney disease), stage V Community acquired pneumonia 2018 [facility] hospitalized. Diabetes mellitus 20 years. Lantus pen. Esophageal reflux takes med Hypercholesteremia 5-10 yrs meds Hypertension takes meds Hypothyroidism meds 20 years Kidney stones 5-6 years ago had 2 in the same year. Malignancy right kidney 2012 Obstructive sleep apnea 3 years. [facility]. [place] remember doctors name Renal cell [...] is the impression of this social security benefits interviewer that Kendall Carl has several positive factors for Kidney transplant candidacy from a psychosocial perspective. Patient appears to have appropriate knowledge of illness. Patient has sufficient insurance coverage and stable financial situation for post transplant needs. No concerns regarding substance abuse, legal issues, or mental health needs. Patient has adequate support system and appropriate discharge plan. Plan: fat pressroom worker to provide supportive services as needed. Patient appears to be a reasonable candidate for transplant from a psychosocial perspective. -Post transplant arrangement forms are needed prior to being listed. -Updated toxicology results needed, per protocol Psychiatric Consult Recommended: No Transplant Orchid Hand: Joy Tam LCSW RD: 11/09/2019 BMI= 36.2, [...] my fitness pal or my food coach cleaner) - Consume no more than 2000 calories a day E-mailed pt's a 2000 calorie, CKD meal plan. Items Still Pending: Clinic, colonoscopy Acute pain of left shoulder 01/25/2019 03/25/2023 Non-cardiac chest pain 11/18/201803/25 Assessment & Plan (01/21/2019 2:02 PM LABORATORY TECH): The pain is persistent. The patient described [...] has had extensive cardiac workup by the integrated specialist including coronary angiogram. He has chest [...]
--- OUTSIDE RECORDS SUMMARY | 2024-11-02 22:47 | XMS_ITS | Encounter Summary ---
Author Organization [facility] Address [address] [place] [address] Care Team Providers Care Rainbow Trout Farm Manager Name Role Phone Deandre Bojorquez MD Unavailable [phone] Jeff Strickland MD Primary Care Provider [phone] Encounter Details Date Type Department Care Team (Late st Contact Info) Description 03/30/2024 Lab Requisition [facility] MA[facility] LAB [address] [place] [id number] Alan Davenport MD [facility]1 [facility] [place] [address] Social History Tobacco Use Types Packs/Day Years Used Date Smoking Tobacco: Never Smokeless Tobacco: Never Alcohol Use Standard Drinks/Week Comments Not Currently 0 (1 standard drink = 0.6 oz pur e alcohol) socially in past Sex and Gender Information Value Date Recorded Sex Assigned at Male 07/02/2021 2:37 PM CDT Legal Sex Male 10:14 PM SECTION HAND HELPER Gender Identity Male 07/02/2021 2:37 PM [...] Description 12/06/2024 10:40 AM CDT Office Visit [facility] - Endocrinology [address] [facility], [place] [address] Marbin Flores MD [address] [facility] DIV [place] [address] Niraj Turner MD 12[address] [facility] 2L [place] [address] documented as of this encounter Procedures Procedure Name Priority Date/Time Associated Diagnosis Comments HOLD HLA SPECIMEN Routine 03/25/2024 2:5 1 PM SECTION HAND HELPER documented in this encounter Results * HOLD HLA SPECIMEN (03/25/2024 2:51 PM SECTION HAND HELPER) Hold HLA Specimen 03/30/2024 4:01 PM SECTION HAND HELPER [facility] Comment:The Hold HLA specime n has been received into the lab and will be held for 5 years at 4 degrees. Blood BLOOD SPECIMEN / Unknown 03/25/2024 2:51 PM SECTION HAND HELPER 03/30/2024 2:51 PM SECTION HAND HELPER Alan Davenport MD LAB - BLOOD BANK ORDERABLES F inal Result [facility] [address] [place] [address], [facility] documented in this encounter Visit Diagnoses Not on filedocumented in this encounter Additional Health Concerns Infection Onset Date Last Indicated Resolved Time COVID-19 Under Investigation 09/13/2024 09/13/2024 09/13/2024 6:36 AM CDT documented as of this encounter Care Teams Rainbow Trout Farm Manager Relationship Specialty Start Date End Date Jeff Strickland MD [address] [place] [address] PCP - General 03/05/18 [place] [address] [address] Orthopedic Surgery 03/28/17 documented as of this encounter
--- OUTSIDE RECORDS SUMMARY | 2024-11-02 22:47 | XMS_ITS | Clinical Summary ---
Author Organization [facility] [employer] Address [address] [place] [address] Care Team Providers Care Applied Behavior Specialist Name Role Phone Deandre Bojorquez MD Unavailable [phone] Jeff Strickland MD Primary Care Provider [phone] Source Comments [facility],non-owned Affiliates and Associated Physician Practices is amultiple site organization consisting of ambulatory clinics and hospital sitesin [place], [place], [place] and [place]. This disclosure is being madepursuant to the Care Everywhere program and may not contain all information available regarding this patient. Last updated 17.[facility] Allergies Active Allergy Reactions [...] 80 MG tabletIndication s:Coronary artery disease involving egegik coronary artery of egegik heart without angina pectoris Take 1 (one) tablet by mouth once daily 90 tablet 3 12/05/19 24 Active B Oipxdfp-Z-Bvdic Acid (Dialyvite 800) 0.8 MG 1 tablet Orally Once a day for 30 day(s) Active lisinopril (Prinivil; Zestril) 20 MG tabletIndication s:Coronary artery disease involving e[place] coronary artery of e[place] heart without angina pectoris,Resista nt hypertension Take [...] For SBP greater than 180, Reported on 11/02/2024 tamsulosin (Flomax) 0.4 MG capsule Take 1 (one) capsule by mouth once daily 06/04/19 25 Active clopidogrel (plaVIX) 75 MG tablet Take 1 (one) tablet by mouth once daily 90 tablet 3 5 4:41 PM CDT 07/22/19 25 Active Aspirin Low Dose 81 MG tabletIndication s:CAD in egegik artery TAKE 1 TABLET BY MOUTH ONCE DAILY 90 tablet 3 08/24/19 25 Active HYDROcodone-acet aminophen ([place]) 5-325 MG tablet Take 1 (one) tablet [...] 3 09/21/19 25 025 Discontin ued(List Clean-Up) doxycycline hyclate 100 MG tabletIndication s:Abscess,Cellul itis Take 1 (one) tablet by mouth 2 times daily for 14 days Reasons: Confined Pocket or Collection of Pus, Infection Under the Skin 28 tablet 10/05/19 025 Additional Information Patient not taking.Reported on 10/19/2024 nystatin-triamci nolone (Mycolog) 672624-7.1 UNIT/GM-% cream 10/06/19 025 Discontin ued(List Clean-Up) [...] -consider sevelamer but will defer to outpt cert pharmacy tech -avoid nephrotoxic agents, and dose meds renally [...] (09/24/2024 6:20 AM CDT): {[facility] Quick Recap - Optional:15720:::1} -continue home coreg 25 mg BID, furosemide [...] -consider sevelamer but will defer to outpt cert pharmacy tech -avoid nephrotoxic agents, and dose meds renally -replete lytes PRN Assessment & Plan (09/24/2024 6:20 AM CDT): {[facility] Quick Recap - Optional:79431:::1} - pt missed PD 09/23 due to [...] (09/24/2024 6:20 AM CDT): {[facility] Quick Recap - Optional:70205:::1} -continue home coreg 25 mg BID, furosemide [...] if vessel amenable to PCI Atherosclerosis of egegik ar teries of the extremities with ulceration [...] (09/24/2024 6:20 AM CDT): {[facility] Quick Recap - Optional:31173:::1} -continue home coreg 25 mg BID, furosemide [...] (09/24/2024 6:20 AM CDT): {[facility] Quick Recap - Optional:52736:::1} - home glargine 35 units daily with [...] were not included. Grace Interiano 1955 Referring Workflow Developer: Alan Mccall Dialysis Info: Type: PD--> HD-->PD Time: 01/17/2020 Blood Type: O NEG Body mass index is 37.54 kg/m . ALERTS: Dr. Mendoza following enhancing lesion noted to upper pole of the left kidney. IR biopsy confirming oncocytoma in 07/2020. Research Subject: Nadia Stock MD ESRD r/t DM2 and HTN Past Medical History: Diagnosis Date Arthropathy Dr Strickland manages. CHF (congestive heart failure) (HCC) 2 yrs ago Balloon Artist is Dr. Becerra in [place]. CKD (chronic kidney disease), stage V (HCC) Community acquired pneumonia 2018 [facility] hospitalized. Diabetes mellitus (HCC) 20 years. [facility]. Research Subject Dr. Davis at [place]. 03/26/21 last seen. Esophageal reflux takes med ESRD (end stage renal disease) (HCC) on PD as of 11/10/20 ESRD on peritoneal dialysis (HCC) Hypercholesteremia 5-10 yrs meds Hypertension 40's takes meds. Hypothyroidism meds 20 years Kidney stones 5-6 years ago had 2 in the same year. No urologist. Malignancy (HCC) right kidney 2012 Obstructive sleep apnea [address] Sergey Guevara [facility] remember doctors name SHABNAM on CPAP Renal cell carcinoma (HCC) [address] [place] Pruett surgeon. followed up every 6 [...] PLACE KNEE ARTHROPLASTY Right NEPHRECTOMY, PARTIAL Right 2012 PITUITARY ADENOMA RESECTION VASCULAR PROCEDURE/SURGERY N/A 08/18/2024 [...] recently was assessed by his PCP at [facility] who performed short blessed test [...] in the presence of Richard Cornelius MD, (residential collections). > Interpreting Provider: Raymundo Hanson MD on [...] CL TI [chronic limb threatening ischemia] # [place] class V # Peripheral artery disease -I [...] RTC In 2 to 3 weeks at [place] (as per patient and family's request) All [...] of the time was also spent in oyyn-cf-gtlg interaction with the patient as well as formulating a plan for management. Thank you for allowing us to participate in the care of your patient and please do not hesitate to reach out to us if any questions or concerns. Yanna Goodman MD MPH Peripheral Angiogram: 08/18/2024 (PAD - L LE peripheral angiogram/ BLOOD BANK LABORATORY TECHNOLOGIST/stenting) Conclusion Left leg angiogram showed left AT severe diffuse disease with multiple subtotal occlusion and left PT severe diffuse disease with FUSE ASSEMBLER of distal PT without clear reconstitution. Successful [...] of Plavix. -recommend close follow up with drafter civil engineering and follow up with me in clinic [...] 0.018 CXI microcatheter with multiple wires(Command 18/command 14/Machinist Tool And Die 200) to get to great toe branch of dorsalis pedis using pilot plant research technician [address]. - the AT-DP lesion was dilated with balloons mentioned in figure. - We turn our attention to PT. We crossed the PT FUSE ASSEMBLER with 0.018 CXI microcatheter with multiple wires (command 18, command 14, Machinist Tool And Die 200) and able to go to lateral [...] using angiography. Left Posterior Tibial Ost L BLOOD BANK LABORATORY TECHNOLOGIST to Dist L BLOOD BANK LABORATORY TECHNOLOGIST lesion is 100% stenosed. Stenosis was measured using angiography. Intervention Ost L ROSETTA to Dist L ROSETTA lesion Angioplasty Angioplasty independent of stent deployment was performed using a standard balloon. The balloon used was Cath [employer] Emrg Mr Wh 1.5Mm 144Cm 15Mm 2. Angioplasty Angioplasty prior to stent deployment was performed using a standard balloon. The balloon used was [employer] Dil Nanocross Elt 2-1.5Mm 150. Angioplasty Angioplasty [...] 10% residual stenosis post intervention. Ost L BLOOD BANK LABORATORY TECHNOLOGIST to Dist L BLOOD BANK LABORATORY TECHNOLOGIST lesion Angioplasty Angioplasty independent of stent deployment [...] 2 diabetes, hyperlipidemia, hypertension was referred to mi for nonhealing left great toe ulcer after [...] CL TI [chronic limb threatening ischemia] # [place] class V # Peripheral artery disease -I personally interpreted JOSIANE from May 2024 [done outside] which showed bilateral TBI was 0.16 and 0.17 with noncompressible JSOIANE (pre intervention). - pending post intervention JOSIANE/TBI [...] of the time was also spent in oyrd-ix-wjio interaction with the patient as well as [...] or MRA given ESRD 4. Atherosclerosis of egegik coronary artery of egegik heart without angina pectoris 5. Hypertriglyceridemia -H/o [...] right eye and seeing ophthalmology for this. [id number] Gabe-Abida DP, Nikunj L, Nba J, Abner ES, Maren D, Mark D, Adrianna E, Triny J, Lisa J, Art M, Mundo D, Tyler PK, Kimberly J, Keiko S, Art D, Roca R, Walker J, Ace F, Neha T, Eric M, Svitlana P, Christian DS, Bari C, Al- Gabi T, Rubens S, Tamika FARZANEH, Eladio GJ, Lucy C, Sapisoisha G, Thania R, Elissa , Prashanth C, Brice N, Yesi DP, Wattammie KD. Pretransplant solid organ malignancy and organ transplant candidacy: A consensus expert opinion statement. Am J Transplant. 2020;21(2):460-474. doi: 10.1111/ajt.03880. Epub 2019Dec 09. PMID: [id number]. Urology: 08/04/2024 Attestation signed by Thomas Mendoza [...] and BerEP4. If this biopsy is territory service representative of the entire lesion, it [...] Krystal Abel RN Sent: 03/28/2022 2:07 PM MASTER AUTOMOTIVE TECHNICIAN To: Martinez Sandhu MD, * Papito. I [...] in Nov. Thank you Krystal Abel RN [facility], [facility] Technical Aide [phone] endoscopic resection of a sellar mass: 11/22/2021 [...] a formal visual hay exam with his buccaro. We reviewed the surgical pathology report. He may restart his baby aspirin. At this time, I recommend a follow up MRI pituitary protocol in 3- 6 months with a visit with me after imaging and patient is agreeable. Strict return precautions were reviewed. ER AUTOMOTIVE TECHNICIAN Pertinent Previous Committee Presentations: 10/14/2024 Committee Review [...] done at outside hospital. [facility] Neuro notes sxs consistent with mild cognitive impairment. Reviewed brain MRI and CT reports. Discussed [facility] MRI report noting diffuse cerebral volume loss, slightly more than expected. Also reviewed PVD and cardiac history. Per team, no longer a candidate for transplant d/t multiple comorbidities. 07/01/2024 Committee Review Decision: Remain Inactive Committee Discussion Details: Reviewed calcifications on CT. CT reviewed at [facility] 06/24/[address] Flores. He deferred decision asking for review by additional surgeons. CT reviewed today with Dr Davenport and Dr Lane. Calcifications doable. Pt to remain listed for transplant (inactive pending additional work up). 12/19/2022 Committee Review Decision: Make Inactive Committee Discussion Details: Pt was presented at [facility] to make inactive on the kidney txp [...] mg/kg Committee Discussion Details: Pt brought to [facility] to discuss possible listing. -Reviewed PMH and [...] -Follow up imaging was previously discussed at [facility] on 03/28/2022 and again today. Radiology unable to rule out cancer on imaging. Team decision after [facility] 03/28/2022 was to have pt complete left [...] 03/28/2022: Committee Discussion Details: Pt brought to [facility] to review recent CT imaging concerning for [...] 09/27/2021: Committee Discussion Details: Pt brought to [facility] due to Pituitary tumor. -Reviewed pts PMH [...] 08/10/2020: Committee Discussion Details: Pt brought to [facility] to discuss recent PCI to mid LAD. [...] calculated left ventricular ejection fraction of 54%. [facility]: 07/21/2024 Conclusion 2-vessel CAD with prior [...] 6Fr 1.25Mm Diamondback catheter and using a [employer] [facility] Diamondback 360 Viperwire Adv wire. [...] is a 0% residual stenosis post intervention. [facility]: 08/04/2020 HEMODYNAMIC FINDINGS: LVEDP 18 [...] ANTICOAGULATION DURING PCI: Heparin INTERVENTIONAL WIRE: A [employer] wireless pressure wire was advanced beyond the [...] > Dictated by Lalit Muñoz DO (residential collections). MRI Abd wwo: 08/04/2024 Findings: Lower Chest: [...] 08/02/2020. 2.Peritoneal dialysis catheter in the pelvis. Przqv-lk-kudijjxc volume ascites throughout the abdomen and pelvis, [...] is the impression of this social sciences department chair that Grace Johana Meseret has several positive factors for Kidney [...] to be the back up caregiver. 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 Patient remains a reasonable candidate for transplant from a psychosocial perspective. Psychiatric Consult Recommended: No Transplant Follow Up Specialist: Malinda Escamilla, DATABASE SECURITY EXPERT, MOTOR VEHICLE FIELD REPRESENTATIVE Abdominal Transplant Follow Up Specialist [phone] Transplant Caregiver Confirmation Note Caregiver Confirmation Date Primary Name of Primary: Harriet Interiano Relationship: spouse - Confirmed during initial assessment 01/14/2022 - BLOOD BANK LABORATORY TECHNOLOGIST form received on 01/14/2022 - Secondary Name [...] Encounters Date Type Department Care Team Description 11/02/2024 1:45 PM CDT Office Visit [facility] - Vascular Surgery [address] [facility] [place] [address] Elroy Holcomb MD PAD (peripheral artery disease) (Primary Dx); Amputation of left great toe 11/02/2024 Travel 10/28/2024 12:27 PM CDT - 10/28/2024 1:05 PM CDT Emergency [facility] [address] [place] [address] Chest pain, unspecified type Discharge Disposition: Left Against Medical Advice/Discontinued Care 10/28/2024 1:55 AM CDT - 10/28/2024 5:16 AM CDT Emergency [facility] [address] [place] [address] Charmaine Khalil MD Chest pain, unspecified type; Abdominal distension; Atypical chest pain; History of coronary angioplasty with insertion of stent; ESRD (end stage renal disease) on dialysis (HCC); PAD (peripheral artery disease) Discharge Disposition: Left Against Medical Advice/Discontinued Care 10/27/2024 1:30 AM CDT - 10/27/2024 11:59 PM CDT Hospital Encounter [facility] [address] [place] [address] Discharge Disposition: Home or Self Care 10/27/2024 Travel 10/26/2024 2:00 PM CDT Office Visit [facility] - Vascular Surgery [address] [place] [phone] Elroy Holcomb MD PAD (peripheral artery disease) (Primary Dx) 10/26/2024 Travel 10/25/2024 Telephone [facility] - Vascular Surgery [address] [place] [phone] Elroy Holcomb MD Pain; Appointment 10/21/2024 12:14 PM CDT - 10/21/2024 11:59 PM CDT Hospital Encounter [facility] LAB OP DRAW STATION [address] [place] [address] Discharge Disposition: Home or Self Care 10/21/2024 10:40 AM CDT Office Visit [facility] - Neurology [address] [place] [phone] Becky Wilson MD Confusion (Primary Dx); Memory loss 10/21/2024 Telephone [facility] - Neurology [address] [place] [phone] Becky Wilson MD Record Request 10/21/2024 Travel 10/19/2024 4:33 PM CDT - 10/19/2024 6:50 PM CDT Emergency [facility] [address] [place] [phone] Kalani Braswell MD Medication side effect (Primary Dx); Lightheadedness; Acute nonintractable headache, unspecified headache type; At risk for polypharmacy; Hypokalemia Discharge Disposition: Home or Self Care 10/19/2024 1:00 PM CDT Office Visit [facility] - Vascular Surgery [address] [place] [phone] Elroy Holcomb MD 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) (Primary Dx); PAD (peripheral artery disease) 10/19/2024 Travel 10/17/2024 9:19 PM CDT - 10/17/2024 9:53 PM CDT Emergency [facility] [address] [place] [address] Other chest pain (Primary Dx) Discharge Disposition: Left Against Medical Advice/Discontinued Care 10/17/2024 Travel 10/14/2024 Telephone [facility] [address] [place] [phone] Savanna Edwards RN Kidney Transplant Evaluation 10/13/2024 1:00 PM CDT Office Visit [facility] - Cardiology [address] [facility] [address] [place] [phone] Maylin Cutler DO Memory loss (Primary Dx); Chronic diastolic heart failure (HCC); Resistant hypertension; ESRD on PD; Abnormal stress test; Coronary artery disease involving egegik coronary artery of egegik heart without angina pectoris; Hypertriglyceridemia; Type 2 diabetes mellitus with other specified complication, with long-term current use of insulin (HCC); PAD (peripheral artery disease) 10/13/2024 Travel 10/09/2024 5:15 PM CDT - 10/09/2024 10:17 PM CDT Emergency [facility] [place] [address] Sukhwinder Wagner MD Short of breath on exertion; Memory loss Discharge Disposition: Home or Self Care 10/09/2024 Travel 10/07/2024 4:34 PM CDT - 10/07/2024 8:44 PM CDT Emergency [facility] [address] [place] [address] Richard Sylvester MD Urinary tract infection associated with indwelling urethral catheter, initial encounter (Primary Dx); Headache, unspecified headache type; Hypotension, unspecified hypotension type Discharge Disposition: Home or Self Care 10/07/2024 Travel 10/05/2024 1:45 PM CDT Office Visit [facility] - Vascular Surgery [address] [facility] [place] [phone] Guy Messina MD Williams, Michael S, MD Amputation of left great toe (Primary Dx); PAD (peripheral artery disease) 10/05/2024 11:24 AM CDT - 10/05/2024 11:59 PM CDT Hospital Encounter [facility] VASCULAR US [address] [place] [address] Guy Messina MD Discharge Disposition: Home or Self Care 10/05/2024 Travel 10/04/2024 11:40 AM CDT Office Visit [facility] - Cardiology [address] [facility] [address] [place] [address] Hannah Goodman MD PAD (peripheral artery disease) (Primary Dx); Resistant hypertension; Chronic diastolic heart failure (HCC); Type 2 diabetes mellitus with other specified complication, with long-term current use of insulin (HCC) 10/04/2024 Travel 09/27/2024 Telephone [facility] - Endocrinology [address] [place] [phone] Niraj Turner MD Med Question 09/27/2024 Telephone [facility] - Endocrinology [address] [place] [phone] Niraj Turner MD Appointment 09/24/2024 Results Follow-Up [facility] Early Admission Unit [address] [place] [address] Angel Crook MD 09/24/2024 Telephone [facility] - Endocrinology [address] [place] [phone] Niraj Turner MD Appointment 09/23/2024 10:57 PM CDT - 09/25/2024 3:57 PM CDT Hospital Encounter [facility] Early Admission Unit [address] [place] [address] Jennifer Winn MD Morreale, Peter J III, MD Wheeler, Joseph R, MD Internal Medicine Discharge Disposition: Home or Self Care 09/23/2024 Travel 09/23/2024 Telephone [facility] - Cardiology [address] [facility] [address] [place] [address] Hannah Goodman MD Question 09/20/2024 Telephone [facility] - Endocrinology [address] [place] [phone] Niraj Turner MD Appointment 09/18/2024 3:46 PM CDT - 09/19/2024 12:11 AM CDT Emergency [facility] [address] [place] [phone] Gricel Benedict MD Lightheadedness (Primary Dx); Transient hypotension; Generalized weakness Discharge Disposition: Home or Self Care 09/18/2024 Travel 09/17/2024 Telephone [facility] - Endocrinology [facility] [place] [address] Niraj Turner MD Appointment 09/17/2024 Telephone [facility] - Centralized Scheduling [address] [place] [address] Niraj Turner MD Appointment 09/17/2024 Telephone Transitional Care at [facility] [address] [place] [phone] Teressa Lopez, interpretive program coordinator 09/14/2024 10:50 AM CDT - 09/14/2024 12:29 PM CDT Surgery [facility] [address] [place] [address] Elroy Holcomb MD LEFT GREAT TOE AMPUTATION 09/14/2024 10:44 AM CDT Anesthesia Event [facility] [address] [place] [address] Olu Taylor, Elroy Costa CAA 09/12/2024 10:15 PM CDT - 09/16/2024 5:41 PM CDT Hospital Encounter [facility] SHORT STAY UNIT [address] [place] [address] Yuriy Lopez MD Morreale, Peter J III, MD Fazeel, Hafiz Muhammad, MD Emergency Medicine Discharge Disposition: Home Health Care [facility] 09/12/2024 Travel 09/10/2024 Telephone [facility] - Centralized Scheduling [address] [place] [phone] Niraj Turner MD 09/09/2024 Transitional Care [facility] CARE COORDINATION [address] [place] [phone] Alesia Bush RN Transitions Of Care 09/03/2024 9:47 PM CDT - 09/08/2024 3:08 PM CDT Hospital Encounter [facility] 6S ACUTE [address] [place] [phone] Charmaine Khalil MD Hoque, Farzana, MD Smutz, Kellen J, Allen Tapia MD Syed, Czear Gauthier MD Emergency Medicine Discharge Disposition: Home or Self Care 09/03/2024 Travel 09/03/2024 Telephone [facility] - Cardiac Rehab [address] [place] [address] Aracely Tracy, test development engineer (States has discussed with pt and would like to schedule cardiac rehab. Discussed pt health, pt's expresses concern re: overall health, leg weakness. Pt is ambulatory. Discussed options with and encouraged to schedule appt with PCP and also to speak with voltage inspector. She and pt do not want to delay starting cardiac rehab. ) 09/03/2024 Telephone [facility] - Cardiology [address] [facility] [address] [place] [address] Hannah Goodman MD Post-Op 09/02/2024 Telephone [facility] - Cardiac Rehab [address] [place] [phone] Aracely Tracy, test development engineer 09/01/2024 10:50 AM CDT - 09/01/2024 12:36 PM CDT Surgery [facility] - Cardiac Graphic Art Designer [address] [place] [phone] Vanessa Medina MD Temporary Pacemaker Insertion 09/01/2024 8:28 AM CDT - 09/01/2024 5:55 PM CDT Hospital Encounter [facility] [address] [place] [address] Vanessa Medina MD Cardiac Catheterization Discharge Disposition: Home or Self Care 09/01/2024 Travel 08/30/2024 10:00 AM CDT Office Visit [facility] - Cardiology [address] [facility], [address] [address] Hannah Goodman MD PAD (peripheral artery disease) (Primary Dx); Arterial leg ulcer (HCC); ESRD on PD 08/21/2024 Refill [facility] - Cardiology [address] [facility], [address] [address] Letha Christine APRN-SPA MANAGER Refill Request 08/18/2024 10:05 AM CDT - 08/18/2024 12:13 PM CDT Surgery [facility] - Cardiac Graphic Art Designer [address] [place] [address] Hannah Goodman MD Angiogram - Peripheral 08/18/2024 9:14 AM CDT - 08/19/2024 3:26 PM CDT Hospital Encounter [facility] SHORT STAY UN[facility] [address] [place] [address] Hannah Goodman MD Cardiac Catheterization Discharge Disposition: Home or Self Care 08/09/2024 1:40 PM CDT Office Visit [facility] - Cardiology [address] [facility], [address] [address] Hannah Goodman MD 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) (Primary Dx); Resistant hypertension 08/09/2024 Orders Only [facility] - Cardiology [address] [facility], [address] [address] Brandi Sosa RN 08/09/2024 Travel 08/04/2024 1:30 PM CDT Office Visit [facility] - Urology [address] [place] [phone] Thomas Mendoza MD Left renal mass (Primary Dx) 08/04/2024 11:19 AM CDT - 08/04/2024 11:59 PM CDT Hospital Encounter [facility] MRI [address] [place] [address] Thomas Mendoza MD Discharge Disposition: Home or Self Care 08/04/2024 Orders Only [facility] PHYS SURGERY [address] [place] [address] Joshua Rebolledo MD History of renal cell carcinoma 08/04/2024 Travel 08/03/2024 Orders Only [facility] - Cardiac Graphic Art Designer [address] [place] [address] Hannah Goodman MD Peripheral arterial disease ; Arterial leg ulcer (HCC) from Last 3 Months Immunizations Immunization Administration Dates Next Due Fresvii primary monoval ent 12+ yr 0.3mL Purple [...] 10/05/2024 [facility] - Occupational Stress Questionnaire Answer [...] were you homeless or living in a half-way (including now)? No 09/24/2024 Sex and Gender Information Value Date Recorded Sex Assigned at Male 07/02/2021 2:37 PM CDT Legal Sex Male 10:14 PM MASTER AUTOMOTIVE TECHNICIAN Gender Identity Male 07/02/2021 2:37 PM CDT Sexual Orientation Straight 07/02/2021 2: 37 PM CDT Last Filed Vital Signs Vital Sign Reading Time Taken Comments Blood Pressure 107/67 11/02/2024 1:43 PM CDT Pulse 76 11/02/2024 1:43 PM CDT Temperature 36.2 C (97.2 F) 11/02/2024 1:43 PM CDT Respiratory Rate 18 10/28/2024 11:28 AM CDT Oxygen Saturation 96% 11/02/2024 1:43 PM CDT Inhaled Oxygen Concentration - - Weight 110.7 kg (244 lb) 11/02/2024 1:43 PM CDT Height 172.7 cm (5' 8) 11/02/2024 1:43 PM CDT Body Mass Index 37.1 11/02/2024 1:43 PM CDT Plan of Treatment Upcoming Encounters Date Type Department Care Team (Late st Contact Info) Description 12/06/2024 10:40 AM CDT Office Visit [facility] - Endocrinology [address] [place] [address], [place] [address] Marbin Flores MD [address] [facility] DIV [place] [address] Niraj Turner MD [address] [facility] 2L [place] [address] Health Maintenance Due Date Last Done Comments [...] this topic Medical Devices Implanted Type Area Stoker Erector Device Identifier Shelf Expiration Date Model / Serial / Lot Sys Cor Stent Xience Srr 3mm 18mm Rap Ex Implanted:Qty: 1 on 08/04/2020 by Javier Lan MD at [facility] Stent Coronary [employer] 06/19/2022 [id number] Description:STENT Sys Cor Stent Xience Srr 3mm 8mm Rap Ex Implanted:Qty: 1 on 08/04/2020 by Javier Lan MD at [facility] Stent Coronary [employer] 09/03/2021 [id number] Description:stent Sys Cor Stent Sng Xd Monrl 3.5mm 48mm - [id number] Implanted:Qty: 1 on 08/18/2024 by Hannah Goodman MD at [facility] [employer] [id number] 09/07/2025 [id number] / [id number] / [id number] Sys Cor Stent Sng Xd Mr 4mm 24mm Dlv Sys - [id number] Implanted:Qty: 1 on 09/01/2024 by Vanessa Medina MD at [facility] [employer]i [id number] 10/19/2025 [id number] / [id number] / [id number] Explanted Type Area Stoker Erector Device Identifier Shelf Expiration Date Model / Serial / Lot Cath Pace Eltrd Biplr Dist Tip Balln Flw - [id number] Explanted:Qty: 1 on 09/01/2024 at [facility] [employer] [id number] 12/17/2025 [id number] / [id number] / [id number] Procedures Procedure Name Priority Date/Time Associated Diagnosis [...] 12:24 PM CDT Coronary artery disease involving [place] heart with angina pectoris, unspecified vessel or [...] BLOCK Routine 09/14/2024 10:3 8 AM CDT IN AMPUTATION METATARSAL+TOE,SINGLE 09/14/2024 10:23 AM CDT Toe [...] unspecified vessel or lesion type, unspecified whether e[place] or transplanted heart CCL TEMPORARY PACEMAKER INSERTION Routine 09/01/2024 2:18 PM CDT Abnormal stress test Dyspnea on exertion Pre-kidney transplant, listed Coronary artery disease with angina pectoris, unspecified vessel or lesion type, unspecified whether [place] or transplanted heart Abnormal findings on cardiac catheterization CCL CORONARY ATHERECTOMY Routine 09/01/2024 2:18 PM CDT Abnormal stress test Dyspnea on exertion Pre-kidney transplant, listed Coronary artery disease with angina pectoris, unspecified vessel or lesion type, unspecified whether e[place]gik or transplanted heart Abnormal findings on cardiac catheterization CCL CORONARY IVUS Routine 09/01/2024 2:1 8 PM CDT Abnormal stress test Dyspnea on exertion Pre-kidney transplant, listed Coronary artery disease with angina pectoris, unspecified vessel or lesion type, unspecified whether e[place] or transplanted heart Abnormal findings on cardiac catheterization CCL STAGED PERC CORONARY INTERVENTION Routine 09/01/2024 2:18 PM CDT Abnormal stress test Dyspnea on exertion Pre-kidney transplant, listed Coronary artery disease with angina pectoris, unspecified vessel or lesion type, unspecified whether e[place] or transplanted heart Abnormal findings on cardiac catheterization GLUCOSE - POINT OF CARE Routine 09/01/2024 10:00 AM CDT CBC W/O DIFFERENTIAL ANDIE 09/01/2024 9:57 AM CDT Coronary artery disease with angina pectoris, unspecified vessel or lesion type, unspecified whether egegik or transplanted heart Abnormal findings on cardiac catheterization BASIC METABOLIC PANEL (CALCIUM TOTAL) ANDIE 09/01/2024 9:57 AM CDT Coronary artery disease with angina pectoris, unspecified vessel or lesion type, unspecified whether [place] or transplanted heart Abnormal findings on cardiac [...] Routine 08/18/2024 2:33 PM CDT 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) ACT LR - POCT ([facility]) Routine 08/18/2024 2:08 PM CDT ACT LR - POCT ([facility]) Routine 08/18/2024 1:24 PM CDT ACT LR - POCT ([facility]) Routine 08/18/2024 12:57 PM CDT ACT LR - POCT ([facility]) Routine 08/18/2024 12:13 PM CDT ANGIOPLASTY PERIPHERAL ARTERY 08/18/2024 10:49 AM CDT 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) GLUCOSE - POINT OF CARE Routine 08/18/2024 10:15 AM CDT BASIC METABOLIC PANEL (CALCIUM TOTAL) ANDIE 08/18/2024 10:11 AM CDT 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 Baseline to 1 hour specimen collection interval exceeded. Blood BLOOD SPECIMEN / Unknown Venipuncture / Unknown 10/28/2024 2:31 AM CDT 10/28/2024 2:37 AM CDT us Savanna Mcfarlane MD LAB - CHEMISTRY ORDERABLES Fi nal Result Performing Organization Address City/[facility]/ZIP Co de Phone Number [address] [address], [facility] [phone] * LACTIC ACID BLOOD REFLEX TO REPEAT (10/28/2024 2:31 AM CDT) Only the most recent of5 resultswithin the time period is included. Lactic Acid-Stat 1.9 <=2.0 mmol/L 10/28/2024 3:06 AM CDT [facility] Blood BLOOD SPECIMEN / Unknown Venipuncture / Unknown 10/28/2024 2:31 AM CDT 10/28/2024 2:37 AM CDT us Savanna Mcfarlane MD LAB - CHEMISTRY ORDERABLES Fi nal Result Performing Organization Address City/[facility]/ZIP Co de Phone Number [address] [address], [place] [phone] * XR Chest 2Vw (10/27/2024 11:58 PM CDT) Only the most recent of4 resultswithin the time period is included. Anatomical Region Laterality Modality Chest Digital Radiogra phy 10/28/2024 12:0 2 AM CDT Narrative 10/28/2024 3:32 AM CDT PROCEDURE: XR CHEST 2VW, DATE/TIME OF EXAM: 10/27/2024 11:58 PM, LOCATION [facility] INDICATION: R07.9: Chest pain, unspecified type ADDITIONAL [...] shoulders. > Dictated by Branden Jha MD, (residential collections). > Dictated by Tar Heater I, Blake Plasencia MD have personally reviewed and interpreted this examination/study. > Interpreting Provider: Blake Plasencia MD on 10/28/2024 3:32 AM Procedure Note Blake Plasencia MD - 10/28/2024 PROCEDURE: XR CHEST 2VW, DATE/TIME OF EXAM: 10/27/2024 11:58 PM, LOCATION [facility] INDICATION: R07.9: Chest pain, unspecified type ADDITIONAL [...] shoulders. > Dictated by Branden Jha MD, (residential collections). > Dictated by Tar Heater I, Blake Plasencia MD have personally reviewed and interpreted this examination/study. > Interpreting Provider: Blake Plasencia MD on 10/28/2024 3:32 AM Savanna Mcfarlane MD DIAGNOSTIC IMAGING ORDERABLES Final Result * (ABNORMAL) TROPONIN-I HIGH SENSITIVE BASELINE + 1HR (10/27/2024 11:53 PM CDT) Only the most recent of8 resultswithin the time period is included. [facility] Troponin I High Sensitive 72(H) <=35 ng/L 10/28/2024 12:49 AM [facility] Blood BLOOD SPECIMEN / Unknown Venipuncture / Unknown 10/27/2024 11:53 PM CDT 10/28/2024 12:12 AM CDT Savanna Mcfarlane MD LAB - CHEMISTRY ORDERABLES Fi nal Result [facility] [address] [place] [address], [facility] [phone] * (ABNORMAL) CBC W AUTO DIFFERENTIAL (10/27/2024 11:53 PM CDT) Only the most recent of11 resultswithin the time period is included. [facility] WBC 7.8 4.0 - 10.7 x10E9/L 10/28/2024 12:26 AM [facility] RBC Count 3.31(L) 4.30 - 5.80 x10E12/L 10/28/2024 12:26 AM [facility] Hemoglobin 9.0(L) 13.3 - 17.5 g/dL 10/28/2024 12:26 AM [facility] Hematocrit 27.9(L) 38.7 - 51.1 % 10/28/2024 12:26 AM [facility] MCV 84.3 80.0 - 98.0 fL 10/28/2024 12:26 AM [facility] MCH 27.2 26.7 - 33.6 pg 10/28/2024 12:26 AM [facility] MCHC 32.3 31.7 - 36.3 g/dL 10/28/2024 12:26 AM [facility] RDW-CV 15.9(H) 11.3 - 14.8 % 10/28/2024 12:26 AM [facility] Platelet Count 187 150 - 420 x10E9/L 10/28/2024 12:26 AM [facility] MPV 10.2 7.8 - 11.4 fL 10/28/2024 12:26 AM [facility] Neutrophil % 67.0 41.0 - 74.0 % 10/28/2024 12:26 AM [facility] Lymphocyte % 16.4(L) 17.0 - 47.0 % 10/28/2024 12:26 AM [facility] Monocyte % 14.0(H) 3.0 - 11.0 % 10/28/2024 12:26 AM [facility] Eosinophil % 1.9 0.0 - 7.0 % 10/28/2024 12:26 AM [facility] Basophil % 0.1 0.0 - 1.6 % 10/28/2024 12:26 AM [facility] Immature Granulocytes % 0.6 0.0 - 1.0 % 10/28/2024 12:26 AM [facility] Neutrophil Absolute 5.23 1.60 - 7.50 x10E9/L 10/28/2024 12:26 AM [facility] Lymphocyte Absolute 1.28 1.00 - 4.40 x10E9/L 10/28/2024 12:26 AM [facility] Monocyte Absolute 1.09(H) 0.15 - 1.00 x10E9/L 10/28/2024 12:26 AM [facility] Eosinophil Absolute 0.15 0.00 - 0.60 x10E9/L 10/28/2024 12:26 AM [facility] Basophil Absolute 0.01 0.00 - 0.13 x10E9/L 10/28/2024 12:26 AM [facility] Blood BLOOD SPECIMEN / Unknown Venipuncture / Unknown 10/27/2024 11:53 PM CDT 10/28/2024 12:13 AM CDT us Savanna Mcfarlane MD LAB - HEMATOLOGY ORDERABLES F inal Result [facility] [address] [place] [address], [facility] [phone] * (ABNORMAL) COMPREHENSIVE METABOLIC PANEL (10/27/2024 11:53 PM [facility]) Only the most recent of13 resultswithin the time period is included. BUN 34(H) 7 - 26 mg/dL 10/28/2024 12:45 AM [facility] Creatinine 7.86(H) 0.71 - 1.16 mg/dL 10/28/2024 12:45 AM [facility] Sodium 132(L) 136 - 145 mmol/L 10/28/2024 12:45 AM [facility] Potassium 3.5 3.5 - 4.5 mmol/L 10/28/2024 12:45 AM [facility] Chloride 95(L) 98 - 107 mmol/L 10/28/2024 12:45 AM [facility] CO2 25 22 - 29 mmol/L 10/28/2024 12:45 AM [facility] Glucose 104(H) 70 - 99 mg/dL 10/28/2024 12:45 AM [facility] Calcium 8.5 8.4 - 10.2 mg/dL 10/28/2024 12:45 AM [facility] Protein Total 5.6(L) 6.0 - 8.3 g/dL 10/28/2024 12:45 AM [facility] Albumin 2.2(L) 3.4 - 5.0 g/dL 10/28/2024 12:45 AM [facility] Bilirubin Total 0.3 0.2 - 1.2 mg/dL 10/28/2024 12:45 AM [facility] Alkaline Phosphatase 104 40 - 150 U/L 10/28/2024 12:45 AM [facility] ALT 56(H) 5 - 55 U/L 10/28/2024 12:45 AM [facility] AST 48(H) 5 - 34 U/L 10/28/2024 12:45 AM [facility] Anion Gap 12 6 - 16 10/28/2024 12:45 AM [facility] BUN/Creatinine Ratio 4(L) 7 - 23 10/28/2024 12:45 AM [facility] Osmolality Calculated 282 275 - 295 mOsm/kg 10/28/2024 12:45 AM [facility] Albumin/Globulin Ratio 0.6(L) 1.1 - 2.3 10/28/2024 12:45 AM [facility] eGFR by CKD-EPI 7(L) >=90 mL/min/1.7 3 m2 10/28/2024 12:45 AM [facility] Comment:Estimated Glomerular Filtration Rate (eGFR) calculated using the CKD-EPI Creatinine Equation (2020), per the National Kidney Foundation and [place] [employer] Neph[employer] recommendations. Blood BLOOD SPECIMEN / Unknown Venipuncture / Unknown 10/27/2024 11:53 PM CDT 10/28/2024 12:12 AM CDT Savanna Mcfarlane MD LAB - CHEMISTRY ORDERABLES Fi nal Result Performing Organization Address City/[facility]/ZIP Co de Phone Number [address] [address], [place] [phone] * LIPASE BLOOD (10/27/2024 11:53 PM CDT) Only the most recent of3 resultswithin the time period is included. Lipase 41 8 - 78 U/L 10/28/2024 12:45 AM T [facility] Blood BLOOD SPECIMEN / Unknown Venipuncture / Unknown 10/27/2024 11:53 PM CDT 10/28/2024 12:12 AM CDT Narrative [facility] - 10/28/2024 12:45 AM CDT Lipase results from the Matthew Alinity analyzer may not be comparable with other methodologies. Savanna Mcfarlane MD LAB - CHEMISTRY ORDERABLES Fi nal Result Performing Organization Address City/[facility]/ZIP Co de Phone Number [address] [address], [place] [phone] * (ABNORMAL) PTH INTACT ([facility]) (10/21/2024 1:11 PM CDT) Only the most recent of2 resultswithin the time period is included. PTH Intact 316.8(H) 8.0 - 77.0 pg/mL 10/21/2024 1:56 PM CDT [facility] Blood BLOOD SPECIMEN / Unknown Lab Venipuncture / Unknown 10/21/2024 1:11 PM CDT 10/21/2024 1:23 PM CDT Becky Wilson MD LAB - CHEMISTRY ORDERABLES Fin al Result [address] [address], [facility] [phone] * LAB MISC TEST (10/21/2024 1:11 PM CDT) Test Name PHOSPHO-TAU 217 PLASMA 10/25/2024 12:29 PM CDT [facility] Test Result See Scanned Report 10/25/2024 12:29 PM CDT [facility] Comment Ref Lab [place] 10/25/2024 12:29 PM CDT [facility] Blood BLOOD SPECIMEN / Unknown Lab Venipuncture / Unknown 10/21/2024 1:11 PM CDT 10/21/2024 1:15 PM CDT Becky Wilson MD LAB SEND OUT Final Result [facility] [address] [place] [address] * MAGNESIUM BLOOD (10/21/2024 1:11 PM CDT) Only the most recent of14 resultswithin the time period is included. Magnesium 1.6 1.6 - 2.6 mg/dL 10/21/2024 1:49 PM CDT [facility] Blood BLOOD SPECIMEN / Unknown Lab Venipuncture / Unknown 10/21/2024 1:11 PM CDT 10/21/2024 1:20 PM CDT Becky Wilson MD LAB - CHEMISTRY ORDERABLES Fin al Result Performing Organization Address City/[facility]/ZIP Co de Phone Number [address] [address], [facility] [phone] * AMMONIA (10/21/2024 1:11 PM CDT) Ammonia 30 <=72 umol/L 10/21/2024 1:32 PM CDT [facility] Blood BLOOD SPECIMEN / Unknown Lab Venipuncture / Unknown 10/21/2024 1:11 PM CDT 10/21/2024 1:15 PM CDT Becky Wilson MD LAB - CHEMISTRY ORDERABLES Fin al Result Performing Organization Address [facility] Co de Phone Number [address] [address], [facility] [phone] * CT Head Wo Contrast (10/19/2024 3:03 PM CDT) Only the most recent of4 resultswithin the time period is included. Anatomical Region Laterality Modality Head Computed Tomogra phy 10/19/2024 3:11 PM CDT Impressions 10/19/2024 3:41 PM CDT IMPRESSION: 1.No acute intracranial hemorrhage, territorial infarct, or significant mass effect. Report dictated by Saroj Linda MD, MD (residential collections). > Dictated by Tar Heater I, Raymundo Hanson MD have personally reviewed [...] Report dictated by Saroj Linda MD, MD (residential collections). > Dictated by Tar Heater I, Raymundo Hanson MD have personally reviewed and interpreted this examination/study. > Interpreting Provider: Raymundo Hanson MD on 10/19/2024 3:41 PM Alfreda Smith PA-C CT ORDERABLES Final Result * EKG 12-LEAD (10/19/2024 2:21 PM CDT) Only the most recent of6 resultswithin the time period is included. Ventricular Rate 64 BPM [facility]USE Atrial Rate 64 BPM [facility] MUSE P-R Interval 146 ms H MUSE QRS Duration ms 96 ms H MUSE Q-T Interval ms 494 ms [facility] MUSE QTC Calculation (Bezet) 509 ms [facility] MUSE Calculated P Oriental 69 degrees [facility] MUSE Calculated R Oriental -63 degrees [facility] MUSE Calculated T Oriental -90 degrees [facility] M[facility] Interpretation EKG NORMAL SINUS RHYTHM LEFT ANTERIOR FASCICULAR BLOCK T WAVE ABNORMALITY, CONSIDER INFEROLATERAL ISCHEMIA PROLONGED QT ABNORMAL ECG . Confirmed by DOUG CAGLE MD ([id number]) on 10/23/2024 11:38:28 PM [facility] 10/19/2024 2:21 PM CDT 10/23/2024 11:38 PM CDT Alfreda Smith PA-C ECG ORDERABLES Edite d Result - Final [facility] * (ABNORMAL) B-TYPE NATRIURETIC PEPTIDE (10/17/2024 7:33 PM CDT) Only the most recent of3 resultswithin the time period is included. BNP 471(H) <100 pg/mL 10/17/2024 10:07 PM CDT [facility] Comment: A decision threshold [...] LAB - CHEMISTRY ORDERABLES Fi nal Result [facility] [address] [place] [address], [facility] [phone] * XR CHEST 1VW PORTABLE (10/09/2024 7:27 PM CDT) Only the most recent of2 resultswithin the time period is included. Anatomical Region Laterality Modality Chest Digital Radiogra phy 10/09/2024 10:4 9 PM CDT Narrative 10/10/2024 1:17 AM CDT PROCEDURE: XR CHEST 1VW PORTABLE, DATE/TIME OF EXAM: 10/09/2024 7:27 PM, LOCATION [facility] INDICATION: R06.02: Short of breath on exertion ADDITIONAL CLINICAL INFORMATION: Ordering Provider Reason For Exam: r/o effusion, pneumonia Technologist Note: Additional: COMPARISON: Chest x-ray from 10/07/2024. FINDINGS/IMPRESSION: There is no focal consolidation, pleural effusion, or pneumothorax.The cardiomediastinal silhouette is normal. No displaced fractures identified. Hardware projecting over thoracic spine. > Dictated by Otis Bocanegra MD (residential collections). > Dictated by Tar Heater I, Blake Plasencia MD have personally reviewed and interpreted this examination/study. > Interpreting Provider: Blake Plasencia MD on 10/10/2024 1:17 AM Procedure Note Blake Plasencia MD - 10/10/2024 PROCEDURE: XR CHEST 1VW PORTABLE, DATE/TIME OF EXAM: 10/09/2024 7:27PM, LOCATION [facility] INDICATION: R06.02: Short of breath on exertion ADDITIONAL CLINICAL INFORMATION: Ordering Provider Reason For Exam: r/o effusion, pneumonia Technologist Note: Additional: COMPARISON: Chest x-ray from 10/07/2024. FINDINGS/IMPRESSION: There is no focal consolidation, pleural effusion, or pneumothorax.The cardiomediastinal silhouette is normal. No displaced fracturesidentified. Hardware projecting over thoracic spine. > Dictated by Otis Bocanegra MD (residential collections). > Dictated by Tar Heater I, Blake Plasencia MD have personally reviewed and interpreted this examination/study. > Interpreting Provider: Blake Plasencia MD on 10/10/2024 1:17 AM us Anjali Avelar COMPUTER SCIENCE INTERN-SPA MANAGER DIAGNOSTIC IMAGING O RDERABLES Final Result * (ABNORMAL) BLOOD GASES ABBEY + COOX PANEL (10/09/2024 4:39 PM CDT) Only the most recent of2 resultswithin the time period is included. pH Venous 7.41 7.32 - 7.42 pH 10/09/2024 5:04 PM [facility] pO2 Venous 34(L) 35 - 40 mmHg 10/09/2024 5:04 PM [facility] pCO2 Venous 44 40 - 50 mmHg 10/09/2024 5:04 PM [facility] HCO3 Venous 27.9 20 - 30 mmol/L 10/09/2024 5:04 PM [facility] Base Excess Venous 2.9(H) -2.0 - 2.0 mmol/L 10/09/2024 5:04 PM [facility] Oxyhemoglobin Venous 56.8 % 09/18 5:04 PM [facility] Comment:A^Absorbance Error Deoxyhemoglobin (HHB) Venous % 42.6 % 10/09/2024 5:04 PM [facility] Comment:A^Absorbance Error Methemoglobin <0.8 0.0 - 2.0 % 10/09/2024 5:04 PM [facility] Comment:A^Absorbance Error Carboxyhemoglobin 0.6 0.0 - 2.0 % 2024 5:04 PM [facility] Comment:A^Absorbance Error O2 Content Venous 7.7 Interpret within clinical context ml/dL 10/09/2024 5:04 PM CDT [facility] Hemoglobin by COOX 9.6(L) 12.0 - 17.6 g/dL 10/09/2024 5:04 PM CDT [facility] Comment:A^Absorbance Error O2 Saturation Venous 57(L) >=70 % 09/18 5:04 PM CDT [facility] Comment:A^Absorbance Error FI O2 Mixed Venous 21.0 % 2024 5:04 PM CDT [facility] Blood BLOOD SPECIMEN / Unknown Venipuncture / Unknown 10/09/2024 4:39 PM CDT 10/09/2024 4:56 PM CDT Narrative [facility] - 10/09/2024 5:04 PM CDT Carboxyhemoglobin Normal Concentration: Non-smokers: 0-2%; Smokers: 0-9%; Toxic: >20% [facility] - BLOOD GASES OR DERABLES Final Result [address] [address], [place] [phone] * PHOSPHORUS BLOOD (10/09/2024 4:39 PM CDT) Only the most recent of8 resultswithin the time period is included. Phosphorus 4.9 2.8 - 5.1 mg/dL 10/09/2024 5:29 PM CDT [facility] Blood BLOOD SPECIMEN / Unknown Venipuncture / Unknown 10/09/2024 4:39 PM CDT 10/09/2024 4:58 PM CDT [facility] - CHEMISTRY ORDE RABLES Final Result [address] [address], [place] [phone] * (ABNORMAL) GLUCOSE - POINT OF CARE (10/09/2024 4:26 PM CDT) Only the most recent of55 resultswithin the time period is included. Glucose WB/POC 115(H) 70 - 99 mg/dL 10/09/2024 4:30 PM [facility] Specimen Type Arterial/C apillary 10/09/2024 4:30 PM [facility] Blood BLOOD SPECIMEN / Unknown 10/09/2024 4:26 PM CDT 10/09/2024 4:30 PM CDT us Provider Unknown LAB - POINT OF CARE ORDERABLES Final Result [facility] [address] [place] [address], [facility] [phone] * (ABNORMAL) URINALYSIS REFLEX MICROSCOPIC REFLEX CULTURE (10/07/2024 6:16 PM CDT) Color UA Yellow Yellow, Straw 10/07/2024 6:39 PM [facility] Clarity UA Ex. Turbid(A) Clear 10/07/2024 6:39 PM [facility] Glucose UA Normal Normal 10/07/2024 6:39 PM [facility] Bilirubin UA Negative Negative 10/07/2024 6:39 PM [facility] Ketone UA Negative Negative 10/07/2024 6:39 PM [facility] Specific [place] UA 1.015 1.005 - 1.030 10/07/2024 6:39 PM [facility] Blood UA 3+(A) Negative 10/07/2024 6:39 PM [facility] pH UA 6.0 5.0 - 8.0 10/07/2024 6:39 PM [facility] Protein UA 2+(A) Negative 10/07/2024 6:39 PM [facility] Urobilinogen UA Normal Normal mg/dL 10/07/2024 6:39 PM [facility] Nitrite UA Negative Negative 10/07/2024 6:39 PM [facility] Leukocyte Esterase UA 500 MOLLY/uL(A) Negative 10/07/2024 6:39 PM [facility] RBC UA 51-100(A) 0 - 5 # /hpf 10/07/2024 6:39 PM CDT [facility] WBC UA >100(A) 0 - 5 # /hpf 10/07/2024 6:39 PM CDT [facility] Bacteria UA 2+(A) None Seen 10/07/2024 6:39 PM CDT [facility] Squamous Epithelial Cells None Seen 0 - 5 /hpf 10/07/2024 6:39 PM CDT [facility] Transitional Epithelial Cell UA 0-2(A) None Seen /HPF 10/07/2024 6:39 PM CDT [facility] Budding Yeast Moderate(A) None seen /hpf 10/07/2024 6:39 PM CDT [facility] Reflex Status Culture to follow 10/07/2024 6:39 PM CDT [facility] Urine URINE SPECIMEN OBTAINED VIA [facility] CATHETER / Unknown Collection / Unknown 10/07/2024 6:16 PM CDT 10/07/2024 6:19 PM CDT Narrative [facility] - 10/07/2024 6:39 PM CDT Richard Sylvester MD LAB - URINALYSIS ORDERABLES Kenna l Result [facility] [address] [place] [id number], [facility] [phone] * (ABNORMAL) CULTURE URINE (10/07/2024 6:16 PM CDT) Culture Urine 50,000-100,000 CFU/mL Klebsiella pneumoniae(A) [facility] 10/09/2024 5:54 AM CDT [facility] MICROBIOLOG[facility] Urine URINE SPECIMEN OBTAINED [facility] / Unknown Collection / Unknown 10/07/2024 6:16 PM CDT 10/07/2024 6:19 PM CDT Narrative [facility]CRO[facility] - 10/09/2024 5:54 AM CDT Organism [...] Richard Sylvester MD LAB - MICROBIOLOGY ORDERABLES Fi nal Result [facility]CRO[facility] [address] [place] [address], [facility] [phone] * VAS Arterial Multilevel Le (10/05/2024 12:24 PM CDT) Anatomical Region Laterality Modality Intravascular Ul trasound 10/05/2024 11:3 4 AM CDT Narrative Procedure Note Elroy Holcomb MD - 10/05/2024 Guy Messina MD VASCULAR LAB ORDERABLES Edit ed Result - Final * (ABNORMAL) HEMOGLOBIN A1C (09/25/2024 5:06 AM CDT) Hemoglobin A1c 5.8(H) <=5.6 % 09/25/2024 8:19 AM [facility] Estimated Average Glucose 120 mg/dL 09/25/2024 8:19 AM [facility] Comment: HbA1c Interpretation: Normal : < 5.7% Pre-diabetes: 5.7-6.4% Diabetes: Equal to or greater than 6.5% Test results diagnostic of diabetes should be repeated for confirmation. Treatment target values recommended by ADA and other clinical organizations should be used to evaluate metabolic control in patients. Reference: [place] [employer], Standards of Care in Diabetes [...] LAB - CHEMISTRY ORDERABLES F inal Result [address] [address], [facility] [phone] * (ABNORMAL) RENAL FUNCTION PANEL (09/24/2024 7:53 PM CDT) Only the most recent of3 resultswithin the time period is included. BUN 42(H) 7 - 26 mg/dL 09/24/2024 8:47 PM [facility] Creatinine 12.22(H) 0.71 - 1.16 mg/dL 09/24/2024 8:47 PM [facility] Sodium 136 136 - 145 mmol/L 09/24/2024 8:47 PM [facility] Potassium 3.9 3.5 - 4.5 mmol/L 09/24/2024 8:47 PM [facility] Chloride 97(L) 98 - 107 mmol/L 09/24/2024 8:47 PM [facility] CO2 24 22 - 29 mmol/L 09/24/2024 8:47 PM [facility] Glucose 93 70 - 99 mg/dL 09/24/2024 8:47 PM [facility] Albumin 1.8(L) 3.4 - 5.0 g/dL 09/24/2024 8:47 PM [facility] Calcium 8.4 8.4 - 10.2 mg/dL 09/24/2024 8:47 PM [facility] Phosphorus 7.0(H) 2.8 - 5.1 mg/dL 09/24/2024 8:47 PM [facility] Anion Gap 15 6 - 16 09/24/2024 8:47 PM [facility] BUN/Creatinine Ratio 3(L) 7 - 23 09/24/2024 8:47 PM [facility] Osmolality Calculated 292 275 - 295 mOsm/kg 09/24/2024 8:47 PM [facility] eGFR by CKD-EPI 4(L) >=90 mL/min/1.7 3 m2 09/24/2024 8:47 PM [facility] Comment:Estimated Glomerular Filtration Rate (eGFR) calculated using the CKD-EPI Creatinine Equation (2020), per the National Kidney Foundation and [place] [employer]ph[employer] recommendations. Blood BLOOD SPECIMEN / Unknown Lab Venipuncture / Unknown 09/24/2024 7:53 PM CDT 09/24/2024 8:15 PM CDT us Guy Messina MD LAB - CHEMISTRY ORDERABLES F inal Result [facility] [address] [place] [address], [facility] [phone] * TSH REFLEX FREE T4 (09/24/2024 12:02 PM CDT) TSH 1.567 0.350 - 4.940 uIU/mL 09/24/2024 12:57 PM T [facility] Blood BLOOD SPECIMEN / Unknown 09/24/2024 12:02 PM CDT 09/24/2024 12:18 PM CDT us Alexis Rodrigez III, MD LAB - CHEMISTRY ORDERAB LES Final Result Performing Organization Address City/[facility]/ZIP Co de Phone Number [address] [address], [facility] [phone] * (ABNORMAL) VITAMIN B1 (09/24/2024 12:02 PM CDT) Vitamin B1 Whole Blood 205(H) 70 - 180 nmol/L 09/27/2024 7:16 PM CDT [facility] Comment: INTERPRETIVE INFORMATION: Vitamin B1, Whole Blood This assay measures the concentration of thiamine diphosphate (TDP), the primary active form of vitamin B1. Approximately 90 percent of vitamin B1 present in whole blood is TDP. Thiamine and thiamine monophosphate, which comprise the remaining 10 percent, are not measured. This test was developed and its performance characteristics determined by [facility]. It has not been cleared or approved by the [place] Food and Drug Administration. This test was performed in a CLIA certified laboratory and is intended for clinical purposes. Performed By: [facility] [address] [place] [address] Sales Team Member: Mk Egan MD, PhD CLIA Number: [id number] Blood BLOOD SPECIMEN / Unknown 09/24/2024 12:02 PM CDT 09/24/2024 12:11 PM CDT us Alexis Rodrigez III, MD LAB - CHEMISTRY ORDERAB LES Final Result Performing Organization Address City/[facility] Co de Phone Number [facility]) [address] [place] [address] * (ABNORMAL) VITAMIN B12 (09/24/2024 12:02 PM CDT) Vitamin B12 1,151(H) 213 - 816 pg/mL 09/24/2024 12:57 PM CDT [facility] Blood BLOOD SPECIMEN / Unknown 09/24/2024 12:02 PM CDT 09/24/2024 12:18 PM CDT Alexis Rodrigez III, MD LAB - CHEMISTRY ORDERAB LES Final Result Performing Organization Address City/[facility]/ZIP Co de Phone Number [address] [address], [facility] [phone] * (ABNORMAL) TROPONIN-I HIGH SENSITIVE (09/24/2024 5:08 AM CDT) Troponin I High Sensitive 83(H) <=35 ng/L 09/24/2024 6:10 AM CDT [facility] Blood BLOOD SPECIMEN / Unknown Lab Venipuncture / Unknown 09/24/2024 5:08 AM CDT 09/24/2024 5:28 AM CDT us Jennifer Winn MD LAB - CHEMISTRY ORDERABLES F inal Result Performing Organization Address [facility]/ZIP Co de Phone Number [address] [address], [facility] [phone] * CT Lumbar Spine Wo Contrast (09/23/2024 [...] pelvis. Report dictated by Branden Jha MD (residential collections) 09/23/2024 5:45 PM. > Dictated by Tar Heater I, Jana Clark MD have personally reviewed and interpreted this examination/study. > Interpreting Provider: Jana Clark MD on 09/23/2024 6:29 PM Narrative 09/23/2024 6:29 PM CDT PROCEDURE: CT HEAD WO CONTRAST, CT LUMBAR SPINE WO CONTRAST, CT THORACIC SPINE WO CONTRAST, CT CERVICAL SPINE WO CONTRAST, DATE/TIME OF EXAM: 09/23/2024 5:32 PM, LOCATION [facility] INDICATION: W19.XXXA: Fall, initial encounter R41.82: Altered mental status, unspecified altered mental status type ADDITIONAL CLINICAL INFORMATION: Ordering Provider Reason For Exam: r/o bleed, fx (accession [id number]), r/o fx (accession [id number]), r/o fx (accession [id number]), r/o fx (accession [id number]) Technologist Note: None. Additional: 69 year old [...] DATE/TIME OF EXAM: 09/23/2024 5:32 PM, LOCATION [facility] INDICATION: W19.XXXA: Fall, initial encounter R41.82: Altered mental status, unspecified altered mental status type ADDITIONAL CLINICAL INFORMATION: Ordering Provider Reason For Exam: r/o bleed, fx (accession [id number]), r/o fx (accession [id number]), r/o fx (accession [id number]), r/o fx (accession [id number]) Technologist Note: None. Additional: 69 year old [...] pelvis. Report dictated by Branden Jha MD (residential collections) 09/23/2024 5:45 PM. > Dictated by Tar Heater I, Jana Clark MD have personally reviewed [...] pelvis. Report dictated by Branden Jha MD (residential collections) 09/23/2024 5:45 PM. > Dictated by Tar Heater I, Jana Clark MD have personally reviewed and interpreted this examination/study. > Interpreting Provider: Jana Clark MD on 09/23/2024 6:29 PM Narrative 09/23/2024 6:29 PM CDT PROCEDURE: CT HEAD WO CONTRAST, CT LUMBAR SPINE WO CONTRAST, CT THORACIC SPINE WO CONTRAST, CT CERVICAL SPINE WO CONTRAST, DATE/TIME OF EXAM: 09/23/2024 5:32 PM, LOCATION [facility] INDICATION: W19.XXXA: Fall, initial encounter R41.82: Altered mental status, unspecified altered mental status type ADDITIONAL CLINICAL INFORMATION: Ordering Provider Reason For Exam: r/o bleed, fx (accession [id number]), r/o fx (accession [id number]), r/o fx (accession [id number]), r/o fx (accession [id number]) Technologist Note: None. Additional: 69 year old [...] DATE/TIME OF EXAM: 09/23/2024 5:32 PM, LOCATION [facility] INDICATION: W19.XXXA: Fall, initial encounter R41.82: Altered mental status, unspecified altered mental status type ADDITIONAL CLINICAL INFORMATION: Ordering Provider Reason For Exam: r/o bleed, fx (accession [id number]), r/o fx (accession [id number]), r/o fx (accession [id number]), r/o fx (accession [id number]) Technologist Note: None. Additional: 69 year old [...] pelvis. Report dictated by Branden Jha MD (residential collections) 09/23/2024 5:45 PM. > Dictated by Tar Heater IJana MD have personally reviewed and interpretedthis examination/study. > Interpreting Provider: Jaan Clark MD on 09/23/2024 6:29 PM Moon [...] pelvis. Report dictated by Branden Jha MD (residential collections) 09/23/2024 5:45 PM. > Dictated by Tar Heater Jana Leigh MD have personally reviewed and interpreted this examination/study. > Interpreting Provider: Jana Clark MD on 09/23/2024 6:29 PM Narrative 09/23/2024 6:29 PM CDT PROCEDURE: CT HEAD WO CONTRAST, CT LUMBAR SPINE WO CONTRAST, CT THORACIC SPINE WO CONTRAST, CT CERVICAL SPINE WO CONTRAST, DATE/TIME OF EXAM: 09/23/2024 5:32 PM, LOCATION [facility] INDICATION: W19.XXXA: Fall, initial encounter R41.82: Altered mental status, unspecified altered mental status type ADDITIONAL CLINICAL INFORMATION: Ordering Provider Reason For Exam: r/o bleed, fx (accession [id number]), r/o fx (accession [id number]), r/o fx (accession [id number]), r/o fx (accession [id number]) Technologist Note: None. Additional: 69 year old [...] DATE/TIME OF EXAM: 09/23/2024 5:32 PM, LOCATION [facility] INDICATION: W19.XXXA: Fall, initial encounter R41.82: Altered mental status, unspecified altered mental status type ADDITIONAL CLINICAL INFORMATION: Ordering Provider Reason For Exam: r/o bleed, fx (accession [id number]), r/o fx (accession [id number]), r/o fx (accession [id number]), r/o fx (accession [id number]) Technologist Note: None. Additional: 69 year old [...] pelvis. Report dictated by Branden Jha MD (residential collections) 09/23/2024 5:45 PM. > Dictated by Tar Heater I, Jana Clark MD have personally reviewed [...] erosion. Report dictated by Branden Jha MD, (residential collections). > Dictated by Tar Heater I, Nicole Bernabe MD have personally reviewed and interpreted this examination/study. > Interpreting Provider: Nicole Bernabe MD on 09/24/2024 9:17 AM Narrative 09/24/2024 9:17 AM CDT PROCEDURE: XR FOOT LEFT 3VW OR MORE, DATE/TIME OF EXAM: 09/23/2024 5:34 PM, LOCATION [facility] INDICATION: W19.XXXA: Fall, initial encounter ADDITIONAL [...] MORE, DATE/TIME OF EXAM: 09/23/2024 5:34PM, LOCATION [facility] INDICATION: W19.XXXA: Fall, initial encounter ADDITIONAL [...] erosion. Report dictated by Branden Jha MD, (residential collections). > Dictated by Tar Heater I, Nicole Bernabe MD have personally reviewed and interpreted this examination/study. > Interpreting Provider: Nicole Bernabe MD on 09/24/2024 9:17 AM us Moon eLwis PA-C DIAGNOSTIC IMAGING ORDERABLES F inal Result * (ABNORMAL) C-REACTIVE PROTEIN (09/23/2024 4:52 PM CDT) Only the most recent of2 resultswithin the time period is included. C-Reactive Protein 1.6(H) <=0.5 mg/dL 09/23/2024 5:42 PM CDT [facility] Blood BLOOD SPECIMEN / Unknown Venipuncture / Unknown 09/23/2024 4:52 PM CDT 09/23/2024 4:56 PM CDT us Moon Lewis PA-C LAB - CHEMISTRY ORDERABLES Kenna l Result [facility] [address] [place] [address], [facility] [phone] * (ABNORMAL) ERYTHROCYTE SEDIMENTATION RATE (09/23/2024 4:52 PM CDT) Only the most recent of2 resultswithin the time period is included. Erythrocyte Sedimentation Rate Westergren 116(H) 0 - 20 MM/HR 09/23/2024 5:21 PM CDT [facility] Blood BLOOD SPECIMEN / Unknown Venipuncture / Unknown 09/23/2024 4:52 PM CDT 09/23/2024 5:05 PM CDT Moon Lewis PA-C LAB - HEMATOLOGY ORDERABLES Fin al Result [facility] [address] [place] [address], [facility] [phone] * (ABNORMAL) DIFFERENTIAL MANUAL (09/23/2024 4:52 PM CDT) Only the most recent of3 resultswithin the time period is included. Neutrophil % 78(H) 41 - 74 % 09/23/2024 5:33 PM CDT [facility] Lymphocyte % 10(L) 17 - 47 % 09/23/2024 5:33 PM CDT [facility] Monocyte % 10 3 - 11 % 09/23/2024 5:33 PM CDT [facility] Eosinophil % 1 0 - 7 % 09/23/2024 5:33 PM CDT [facility] Metamyelocyte % 1(H) 0% % 5:33 PM CDT [facility] Neutrophil Absolute 8.66(H) 1.60 - 7.50 x10E9/L 09/23/2024 5:33 PM CDT [facility] Lymphocyte Absolute 1.11 1.00 - 4.40 x10E9/L 09/23/2024 5:33 PM CDT [facility] Monocyte Absolute 1.11(H) 0.15 - 1.00 x10E9/L 09/23/2024 5:33 PM CDT [facility] Eosinophil Absolute 0.11 0.00 - 0.60 x10E9/L 09/23/2024 5:33 PM T [facility] RBC Morphology REVIEWED 09/23/2024 5:33 PM CDT [facility] Microcytosis MODERATE(A) (none) 09/23/2024 5:33 PM T [facility] Blood BLOOD SPECIMEN / Unknown Venipuncture / Unknown 09/23/2024 4:52 PM CDT 09/23/2024 5:05 PM CDT Moon Lewis PA-C LAB - HEMATOLOGY ORDERABLES Fin al Result Performing Organization Address City/[facility]/ZIP Co de Phone Number [place] [id number] [place] [address], [facility] [phone] * (ABNORMAL) CBC W/O DIFFERENTIAL (09/16/2024 1:01 AM CDT) Only the most recent of10 resultswithin the time period is included. WBC 9.3 4.0 - 10.7 x10E9/L 09/16/2024 1:43 AM [facility] RBC Count 3.37(L) 4.30 - 5.80 x10E12/L 09/16/2024 1:43 AM [facility] Hemoglobin 9.5(L) 13.3 - 17.5 g/dL 09/16/2024 1:43 AM [facility] Hematocrit 28.3(L) 38.7 - 51.1 % 09/16/2024 1:43 AM [facility] MCV 84.0 80.0 - 98.0 fL 09/16/2024 1:43 AM [facility] MCH 28.2 26.7 - 33.6 pg 09/16/2024 1:43 AM [facility] MCHC 33.6 31.7 - 36.3 g/dL 09/16/2024 1:43 AM [facility] RDW-CV 15.7(H) 11.3 - 14.8 % 09/16/2024 1:43 AM [facility] Platelet Count 205 150 - 420 x10E9/L 09/16/2024 1:43 AM [facility] MPV 10.3 7.8 - 11.4 fL 09/16/2024 1:43 AM [facility] Blood BLOOD SPECIMEN / Unknown Lab Venipuncture / Unknown 09/16/2024 1:01 AM CDT 09/16/2024 1:40 AM T us Alexis Rodrigez III, MD LAB - HEMATOLOGY ORDERA BLES Final Result Performing Organization Address City/[facility]/ZIP Co de Phone Number [address] [address], [facility] [phone] * VANCOMYCIN LEVEL RANDOM (09/15/2024 4:10 PM CDT) Only the most recent of3 resultswithin the time period is included. Pathologist [facility] Vancomycin Random 31.2 Therapeutic Ranges not established for random specimens ug/mL 09/15/2024 6:00 PM CDT [facility] Blood BLOOD SPECIMEN / Unknown Lab Venipuncture / Unknown 09/15/2024 4:10 PM CDT 09/15/2024 4:51 PM CDT Narrative [facility] - 09/15/2024 6:00 PM CDT See institution protocol. us Aureliano Pierce MD LAB - CHEMISTRY ORDERAB LES Final Result [address] [address], [facility] [phone] * LACTIC ACID BLOOD (09/14/2024 3:32 PM CDT) Only the most recent of4 resultswithin the time period is included. [facility] Lactic Acid-Stat 2.0 <=2.0 mmol/L 09/14/2024 4:17 PM CDT [facility] Blood BLOOD SPECIMEN / Unknown Lab Venipuncture / Unknown 09/14/2024 3:32 PM CDT 09/14/2024 3:51 PM CDT us Alexis Rodrigez III, MD LAB - CHEMISTRY ORDERAB LES Final Result [address] [address], [facility] [phone] * (ABNORMAL) HGB HCT PANEL (09/14/2024 1:24 PM CDT) Only the most recent of2 resultswithin the time period is included. [facility] Hemoglobin 8.7(L) 13.3 - 17.5 g/dL 09/14/2024 1:41 PM CDT [facility] Hematocrit 25.6(L) 38.7 - 51.1 % 09/14/2024 1:41 PM CDT [facility] Blood BLOOD SPECIMEN / Unknown Venipuncture / Unknown 09/14/2024 1:24 PM CDT 09/14/2024 1:30 PM CDT us Alexis Rodrigez III, MD LAB - HEMATOLOGY ORDERA BLES Final Result [facility] [address] [place] [address], [facility] [phone] * PATHOLOGY TISSUE (09/14/2024 11:45 AM CDT) Case Report Surgical Pathology Report Case: [id number] Authorizing Provider: Elroy Holcomb MD Collected: 09/14/2024 11:45 AM Ordering Location: [facility] Received: 09/14/2024 12:47 PM Pathologist: Charmaine Myrick MD Specimen: Toe, Left, Left Great Toe 09/16/2024 11:40 AM CDT [facility] Final Diagnosis Toe, left great, amputation (A): - Skin ulceration and necrosis - Acute osteomyelitis - Bone margin negative for acute inflammation - Skin and soft tissue margin appears viable 09/16/2024 11:40 AM CDT [facility] at 1140 CDT Microscopic Description and Comment Microscopic examination substantiates the diagnosis. 09/16/2024 11:40 AM CDT [facility] Clinical History The patient is a 69-year-old man with first toe dry gangrene and history of PAD. 09/16/2024 11:40 AM CDT [facility] Gross Description The [...] hemorrhage. There are no additional gross lesions. Human Resources Receptionist sections are submitted as follows: A1-skin and soft tissue to resection margin, medial and dorsal surfaces A2-bony resection margin, decalcified A3-partial proximal cross-section with surrounding mummification, decalcified IKD 09/16/2024 11:40 AM T [facility] Pathologist Location at [facility] 09/16/2024 11:40 AM T [facility] Disclaimer The performance characteristics of all immunohistochemical and indirect immunofluorescence stains (if any) cited in this report were determined by the Histopathology Laboratory of [facility]. Some of these tests were [...] the attending (teaching) pathologist. 09/16/2024 11:40 AM T [facility] Embedded Images 09/16/2024 11:40 AM T [facility] Amputation, Traumatic (Gross Only) (Toe, Left) 09/14/2024 11:45 AM CDT 09/14/2024 12:47 PM CDT Comment:Pre-op diagnosis: Toe gangrene (HCC) [I96] us Elroy Holcomb MD LAB - PATHOLOGY/CYTOLOGY O RDERABLES Final Result [facility] [address] [place] [address], [facility] [phone] * Peripheral Nerve Block (09/14/2024 10:38 AM [...] was present and assisted at appropriate periods.. Olu Taylor DO GENERAL ANESTHESIA ORDERAB LES Final Result * CULTURE FUNGUS OTHER+FUNGUS SMEAR (09/13/2024 8:08 PM CDT) Culture No fungus isolated [facility] 10/11/2024 8:05 AM CDT [facility] Fungus Stain No yeast or hyphae seen 10/11/2024 8:05 AM CDT [facility] Microbiology PERITONEAL DIALYSATE SPECIMEN / Unknown Collection / Unknown 09/13/2024 8:08 PM CDT 09/13/2024 8:10 PM CDT us Alexis Rodrigez III, MD LAB - MICROBIOLOGY ORDE AZUCENA Final Result Performing Organization Address City/[facility]/ZIP Co de Phone Number [facility] [address] [place] [address], [facility] [phone] * DIFFERENTIAL MANUAL FLUID (09/13/2024 8:08 PM CDT) Fluid Source Peritoneal 09/13/2024 9:03 PM CDT [facility] Body Fluid Total Cell Count 100 x10E6/L 09/13/2024 9:03 PM CDT [facility] Neutrophils Fluid Percent 11 % 09/13/2024 9:03 PM CDT [facility] Lymphocytes Fluid Percent 6 % 09/13/2024 9:03 PM CDT [facility] Macrophages Fluid Percent 79 % 09/13/2024 9:03 PM CDT [facility] Mesothelial Cells Fluid Percent 4 % 09/13/2024 9:03 PM CDT [facility] Fluid PERITONEAL FLUID / Unknown Collection / Unknown 09/13/2024 8:08 PM CDT 09/13/2024 8:10 PM CDT Narrative [facility] - 09/13/2024 9:03 PM CDT No reference ranges established for body fluid differential cell counts. The test results must be integrated into the clinical context for interpretation. us Alexis Rodrigez III, MD LAB - BODY FLUID ORDERA BLES Final Result Performing Organization Address [facility]/ZIP Co de Phone Number [facility] [address] [place] [address], [place] [phone] * CULTURE FLUID+GRAM STAIN (09/13/2024 8:08 PM CDT) Culture No growth [facility] 09/17/2024 12:38 AM CDT [facility] Gram Stain Light Polymorphonuclear cells 09/17/2024 12:38 AM CDT [facility] Gram Stain No organisms seen 025 12:38 AM CDT [facility] Other PERITONEAL DIALYSATE SPECIMEN / Unknown Collection / Unknown 09/13/2024 8:08 PM CDT 09/13/2024 8:10 PM CDT Alexis Rodrigez III, MD LAB - MICROBIOLOGY PK ZENG Final Result Performing Organization Address City/[facility]/ZIP Co de Phone Number [facility] [address] [place] [address], [facility] [phone] * CULTURE ANAEROBE (09/13/2024 8:08 PM CDT) Culture No anaerobic organisms isolated [facility] 09/19/2024 8:26 AM CDT [facility] Microbiology PERITONEAL DIALYSATE SPECIMEN / Unknown Collection / Unknown 09/13/2024 8:08 PM CDT 09/13/2024 8:11 PM CDT Alexis Rodrigez III, MD LAB - MICROBIOLOGY PK ZENG Final Result Performing Organization Address [facility] Co de Phone Number [facility] [address] [place] [address], [facility] [phone] * CELL COUNT W DIFFERENTIAL FLUID (09/13/2024 8:08 PM CDT) Fluid Source Peritoneal 09/13/2024 9:03 PM CDT [facility] Fluid Appearance CLEAR 09/13/2024 9:03 PM CDT [facility] Fluid Color YELLOW 09/13/2024 9:03 PM CDT [facility] Total Nucleated Cells Fluid 279 Reference Range Not Established x10E6/L 09/13/2024 9:03 PM CDT [facility] RBC Count Fluid <2,000 Reference Range Not Established x10E6/L 09/13/2024 9:03 PM CDT [facility] Fluid PERITONEAL FLUID / Unknown Collection / Unknown 09/13/2024 8:08 PM CDT 09/13/2024 8:10 PM CDT Narrative [facility] - 09/13/2024 9:03 PM CDT No reference ranges established for body fluid cell counts. Any reference ranges provided are derived from published literature. The test results must be integrated into the clinical context for interpretation. us Alexis Rodrigez III, MD LAB - BODY FLUID ORDERA BLES Final Result [facility] [address] [place] [address], [facility] [phone] * VAS Bilateral Venous Duplex Le (09/13/2024 4:34 PM CDT) Anatomical Region Laterality Modality Lower Extremity Ultrasound 09/13/2024 4:18 PM CDT Narrative Procedure Note Lalit Castanon MD - 09/13/2024 us Alexis Rodrigez III, MD VASCULAR LAB ORDERABLES Edited Result - Final * SARS-COV-2 (COVID-19) RAPID (09/13/2024 6:02 AM CDT) COVID-19 PCR Not detected Not detected 09/14/19 25 6:36 AM CDT [facility] Microbiology SPECIMEN FROM NASOPHARYNGEAL STRUCTURE / Unknown Collection / Unknown 09/13/2024 6:02 AM CDT 09/13/2024 6:04 AM CDT Narrative [facility] - 09/13/2024 6:36 AM CDT The [...] this EUA assay are available upon request. Yuriy Lopez MD LAB - MICROBIOLOGY ORDERABLE S Final Result [facility] [address] [place] [address], [facility] [phone] * TRANSFUSE RED BLOOD CELL LEUKOREDUCED UNIT(S) [...] > Dictated by Sera Chowdhury Dr, MD (residential collections). I, Terry Ramos MD have personally reviewed and interpreted this examination/study. > Interpreting Provider: Terry Ramos MD on 09/13/2024 9:42 AM Narrative 09/13/2024 9:42 AM CDT PROCEDURE: CT ANGIO AORTA FOR DISSECTION, DATE/TIME OF EXAM: 09/13/2024 12:28 AM, LOCATION [facility] INDICATION: R10.9: Abdominal pain, unspecified abdominal [...] DATE/TIME OF EXAM: 09/13/2024 12:28 AM, LOCATION [facility] INDICATION: R10.9: Abdominal pain, unspecified abdominal [...] > Dictated by Sera Chowdhury Dr, MD (residential collections). I, Lien. Constantino Ramos MD have personally reviewed and interpreted this examination/study. > Interpreting Provider: Terry Ramos MD on 09/13/2024 9:42 AM Yuriy Lopez MD CT ORDERABLES Final Result * PREPARE (CROSSMATCH) RBC UNIT(S), 1 Units (09/12/2024 11:30 PM CDT) Unit Description AS1 LR PRBC [facility] Unit ABO O [facility] Unit Rh NEG [facility] Product Number R43 [facility] Unit Donor # [id number] [facility] Unit Status transfused [facility] Product Code [id number] [facility] Blood Type Barcode [address] [facility] Expiration Date [id number] [facility] Blood Bank BLOOD SPECIMEN / Unknown 09/12/2024 11:30 PM CDT 09/12/2024 11:37 PM CDT Yuriy Lopez MD LAB - BLOOD BANK ORDERABLES Final Result [facility] [address] [place] [address], [place] [phone] * TYPE + SCREEN PANEL (09/12/2024 11:30 PM CDT) Antibody Screen NEG 12:16 AM CDT [facility] ABO Rh O NEG 09/13/2024 12:16 AM CDT [facility] Blood Bank BLOOD SPECIMEN / Unknown Venipuncture / Unknown 09/12/2024 11:30 PM CDT 09/12/2024 11:37 PM CDT Yuriy Lopez MD LAB - BLOOD BANK ORDERABLES Final Result [facility] [address] [place] [address], [place] [phone] * CULTURE BLOOD (09/12/2024 10:00 PM CDT) Only the most recent of4 resultswithin the time period is included. Culture No growth day 5 MUSHTAQ 09/18/2024 1:30 AM CDT [facility] Blood PERIPHERAL BLOOD / Unknown Venipuncture / Unknown 09/12/2024 10:00 PM CDT 09/12/2024 10:21 PM CDT Yuriy Lopez MD LAB - MICROBIOLOGY ORDERABLE S Final Result [facility] [address] [place] [address], [facility] [phone] * (ABNORMAL) BASIC METABOLIC PANEL (CALCIUM TOTAL) (09/08/2024 10:45 AM [facility]) Only the most recent of6 resultswithin the time period is included. BUN 46(H) 7 - 26 mg/dL 09/08/2024 11:55 AM [facility] Creatinine 10.97(H) 0.71 - 1.16 mg/dL 09/08/2024 11:55 AM [facility] Sodium 142 136 - 145 mmol/L 09/08/2024 11:55 AM [facility] Potassium 4.4 3.5 - 4.5 mmol/L 09/08/2024 11:55 AM [facility] Chloride 104 98 - 107 mmol/L 09/08/2024 11:55 AM [facility] CO2 25 22 - 29 mmol/L 09/08/2024 11:55 AM [facility] Glucose 112(H) 70 - 99 mg/dL 09/08/2024 11:55 AM [facility] Calcium 8.9 8.4 - 10.2 mg/dL 09/08/2024 11:55 AM [facility] Anion Gap 13 6 - 16 09/08/2024 11:55 AM [facility] BUN/Creatinine Ratio 4(L) 7 - 23 09/08/2024 11:55 AM [facility] Osmolality Calculated 307(H) 275 - 295 mOsm/kg 09/08/2024 11:55 AM [facility] eGFR by CKD-EPI 5(L) >=90 mL/min/1.7 3 m2 09/08/2024 11:55 AM [facility] Comment:Estimated Glomerular Filtration Rate (eGFR) calculated using the CKD-EPI Creatinine Equation (2020), per the National Kidney Foundation and [place] Society of Nephrology recommendations. Blood BLOOD SPECIMEN / Unknown Lab Venipuncture / Unknown 09/08/2024 10:45 AM CDT 09/08/2024 11:26 AM CDT us Mellissa Freitas PA-C LAB - CHEMISTRY ORDERABLES Final Result [facility] [address] [place] [address], [facility] [phone] * VAS Bilateral Venous Mapping (09/07/2024 2:24 PM CDT) Anatomical Region Laterality Modality Upper Extremity, Lower Extremity Ultrasound 09/07/2024 1:53 PM CDT Narrative Procedure Note Elroy Holcomb MD - 09/08/2024 us Allen Wing MD VASCULAR LAB ORDERABLES Edite d Result - Final * VAS ARTERIAL ANKLE ARM INDEX (09/06/2024 1:17 PM CDT) Anatomical Region Laterality Modality Ankle / Foot, Upper Extremity Ul trasound 09/06/2024 12:4 8 PM CDT Narrative Procedure Note Lalit Castanon MD - 09/07/2024 us Sarah Mcgraw DO VASCULAR LAB ORDERABLES Edited [...] thickening. Report dictated by Freddie Durham MD, (Tar Heater). I, Junior Hurley MD have personally reviewed and interpreted this examination/study. > Interpreting Provider: Junior uHrley MD on 09/04/2024 6:26 AM Narrative 09/04/2024 [...] thickening. Report dictated by Freddie Durham MD, (Tar Heater). I, Junior Hurley MD have personally reviewed and interpreted this examination/study. > Interpreting Provider: Junior Hurley MD on 56:26 AM Charmaine Khalil MD CT ORDERABLES Final Result * (ABNORMAL) POTASSIUM WHOLE BLD (09/01/2024 3:54 PM CDT) Pathologist [facility] Potassium Whole Blood 3.1(L) 3.5 - 5.5 mmol/L 09/01/2024 4:05 PM CDT [facility] Blood WHOLE BLOOD SPECIMEN / Unknown Venipuncture / Unknown 09/01/2024 3:54 PM CDT 09/01/2024 3:57 PM CDT us Jaqueline Crews COMPUTER SCIENCE INTERN-SPA MANAGER LAB - CHEMISTRY ORDERABL ES Final Result [facility] [address] [place] [address], [place] [phone] * CCL STAGED PERC CORONARY INTERVENTION, CCL [...] 6Fr 1.25Mm Diamondback catheter and using a [facility] Diamondback 360 Viperwire Adv wire. 2 [...] continuing DAPT Cardiology clinic f/u Jaqueline Crews COMPUTER SCIENCE INTERN-SPA MANAGER CV CARDIAC CATH CUPID IN OCS Final Result * (ABNORMAL) IRON + TRANSFERRIN PANEL (08/19/2024 1:41 AM CDT) Iron 40(L) 50 - 175 ug/dL 08/19/2024 2:17 AM CDT [facility] Transferrin 116(L) 174 - 382 mg/dL 08/19/2024 2:17 AM CDT [facility] Transferrin Saturation % 28 16 - 50 % 08/19/2024 2:17 AM CDT [facility] TIBC Calculated 145(L) 240 - 450 ug/dL 08/19/2024 2:17 AM CDT [facility] Blood BLOOD SPECIMEN / Unknown Lab Venipuncture / Unknown 08/19/2024 1:41 AM CDT 08/19/2024 2:01 AM CDT Hannah Goodman MD LAB - CHEMISTRY ORDERABLES F inal Result [facility] [address] [place] [address], [facility] [phone] * (ABNORMAL) FERRITIN (08/19/2024 1:41 AM CDT) Ferritin 560(H) 22 - 275 ng/mL 08/19/2024 2:35 AM CDT [facility] Blood BLOOD SPECIMEN / Unknown Lab Venipuncture / Unknown 08/19/2024 1:41 AM CDT 08/19/2024 2:01 AM CDT us Hannah Goodman MD LAB - CHEMISTRY ORDERABLES F inal Result Performing Organization Address [facility] de Phone Number [address] [address], [place] [phone] * VITAMIN D 25-HYDROXY (08/19/2024 1:23 AM CDT) Vitamin D, 25 Hydroxy 36.2 30.0 - 80.0 ng/mL 08/19/2024 2:24 AM CDT [facility] Comment: The recommendations for 25-Hydroxy Vitamin [...] ORDERABLES F inal Result Performing Organization Address [facility] Co de Phone Number [address] [address], [place] [phone] * CCL PERIPHERAL ANGIOGRAM (08/18/2024 2:33 PM CDT) Anatomical Region Laterality Modality X-Ray Angiograph y Narrative 08/19/2024 2:24 PM CDT Left leg angiogram showed left AT severe diffuse disease with multiple subtotal occlusion and left PT severe diffuse disease with FUSE ASSEMBLER of distal PT without clear reconstitution. Successful [...] 0.018 CXI microcatheter with multiple wires(Command 18/command 14/Machinist Tool And Die 200) to get to great toe branch of dorsalis pedis using pilot plant research technician [address]. - the AT-DP lesion was dilated with balloons mentioned in figure. - We turn our attention to PT. We crossed the PT FUSE ASSEMBLER with 0.018 CXI microcatheter with multiple wires (command 18, command 14, Machinist Tool And Die 200) and able to go to lateral [...] using angiography. Left Posterior Tibial: Ost L BLOOD BANK LABORATORY TECHNOLOGIST to Dist L BLOOD BANK LABORATORY TECHNOLOGIST lesion is 100% stenosed. Stenosis was measured [...] 10% residual stenosis post intervention. Ost L BLOOD BANK LABORATORY TECHNOLOGIST to Dist L BLOOD BANK LABORATORY TECHNOLOGIST lesion: Angioplasty: Angioplasty independent of stent deployment [...] of Plavix. -recommend close follow up with drafter civil engineering and follow up with me in clinic with JOSIANE/TBI. us Hannah Goodman MD CV INVASIVE VASCULAR AND IR CUPID PROC Final Result * ACT LR - POCT ([facility]) (08/18/2024 2:08 PM CDT) Only the most recent of4 resultswithin the time period is included. ACT LR 231 See result comments sec 08/19/2024 9:02 AM CDT [facility] Blood BLOOD SPECIMEN / Unknown 08/18/2024 2:08 PM CDT 08/19/2024 9:02 AM CDT Narrative [facility] - 08/19/2024 9:02 AM CDT ACT-LR Therapeutics ranges are: Cardiac filling station laborer = 200-300 seconds Sheath pull = [...] MD LAB - COAGULATION ORDERABLES Final Result [facility] [address] [place] [address], [facility] [phone] * MRI ABDOMEN WWO CONTRAST (08/04/2024 12:24 [...] Report dictated by Alan Cole MD (residential collections). Terry Leigh MD have personally reviewed and [...] of the left kidney, not significantly changed, image 49, series 16 image 41. A [...] Report dictated by Alan Cole MD (residential collections). ITerry MD have personally reviewed and interpreted this examination/study. > Interpreting Provider: Terry Ramos MD on 08/04/2024 6:23 PM us Thomas Mendoza MD MR ORDERABLES Final Resu lt * HEPATITIS C ANTIBODY (06/16/2024 4:15 PM CDT) Hepatitis C Antibody Non-react sylvie Non-reac tive 06/16/2024 5:50 PM CDT [facility] Comment:Hepatitis C Antibody screen [...] LAB - CHEMISTRY ORDERABLES Fi nal Result [facility] [address] [place] [address], [facility] [phone] from Last 3 Months or Most Recently Relevant to Health Maintenance Insurance [facility] [facility] MEDICARE ADV AENA MEDICARE ADV [facility] * Guarantor: GRACE INTERIANO Account Type Relation to Patient Date of Phone Billing Address Personal/Family [id number] * Guarantor: GRACE INTERIANO Account Type Relation to Patient Date of Phone Billing Address Personal/Family [address] [place] [address] Advance Directives * Full Code (Latest Code [...] 3:16 PM 08/19/2024 4:36 PM Care Teams Applied Behavior Specialist Relationship Specialty Start Date End Date Jeff Strickland MD [address] [place] [address] PCP - General 03/05/18 [place] [id number] [address] Orthopedic Surgery 03/28/17
--- OUTSIDE RECORDS SUMMARY | 2024-11-02 22:48 | XMS_ITS ---
Author Organization [facility] Address [address] [place] [address] Care Team Providers Care Construction Mgr Name Role Phone Jeff Strickland MD Primary Care Provider Chan Nicholas MD Unavailable Alan Mccall MD Unavailable Pepito Haro MD PhD Unavailable [phone] Solange Guido MD Unavailable Dialysis Access Sites [...] both eyes EGFR Routine 04/13/2024 5:06 AM [facility] HEMOGLOBIN A1C STAT 04/10/2024 11:41 PM [facility] LIPID PANEL STAT 04/10/2024 11:41 PM [facility] from Last 3 Months or Most Recently [...] 300 + = 14 units Active FA-vit Uqzse-C-cowq-vitamin D3 (Dialyvite 800-Ultra D) 0.8-2,000 mg-unit tablet [...] total) by mouth 06/04/19 25 Active vitamins A,C,V-uknc-jevrya (PreserVision AREDS) 4,296 mcg-226 mg-90 mg capsule [...] damage Assessment & Plan (03/09/2024 6:25 PM BRIEFCASE SEWER): Vision OD trends mild improvement, though [...] discussed that genetic results would not change manager. Given we have exhausted available [...] 03/26/2021 Assessment & Plan (03/26/2021 1:17 PM BRIEFCASE SEWER): Enlarged mild sella turcica on a [...] units Assessment & Plan (03/26/2021 1:17 PM BRIEFCASE SEWER): Chronic, uncontrolled, improving A1c today 7.7 [...] WNL Assessment & Plan (03/26/2021 1:16 PM BRIEFCASE SEWER): Pt currently on Levothyroxine 112 mcg [...] 11/18/2018 Assessment & Plan (01/21/2019 2:02 PM BRIEFCASE SEWER): Symptomatic. Will request for esophageal manometry. [...] well Assessment & Plan (03/26/2021 1:16 PM BRIEFCASE SEWER): On statin therapy Tolerating well Last [...] nephrectomy. 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 T3jFWAN Immunizations Immunization Administration Dates Next Due Hep [...] oz pur e alcohol) rarely [facility] [employer] Answer Date Recorded In the past 12 months has [employer], gas, oil, or water [employer] threatened to shut off services in your [...] on file Legal Sex Male 2:23 AM BRIEFCASE SEWER Gender Identity Not on file Sexual Orientation [...] CDT Respiratory Rate 16 04/13/2024 8:33 AM [facility] Oxygen Saturation 98% 04/13/2024 8:33 AM [facility] Inhaled Oxygen Concentration - - Weight 122.3 [...] Selwyn Wong M.D. LC: MARC Report ID: [id number] [place] Location: [id number] Procedure Note Dolores Wong MD - 10/12/2024 EXAM DESCRIPTION: MRI BRAIN WO CONTRAST REASON FOR STUDY: other symptoms and signs involving cognitive functionsand awareness Cognitive changes, confusion, worse over that last several weeks, noinjury or trauma but patient states he has had several surgeries recently TECHNIQUE: Multiplanar imaging includes non-contrasted T1, T2, FLAIR, and diffusion with ADC map sequences. Additional sequence(s) sensitive [employer] products. Images stored on PACS. COMPARISON: MRI [...] Selwyn Wong M.D. LC: MARC Report ID: [id number] [place] Location: [id number] us Provider Transcribed Order IMG MRI PROCEDURES [...] Result * (ABNORMAL) eGFR (04/13/2024 5:06 AM [facility]) eGFR 5(L) >=60 mL/min/1. 73 m2 Comment: [...] reviewed 2020. Blood 04/13/2024 5:0 6 AM [facility] 04/13/2024 5:31 AM [facility] us Saul Engle MD LAB BLOOD ORDERABLES Final Resul t [facility] Department of Laboratories [place], [place] [id number] * (ABNORMAL) Lipid panel (04/10/2024 11:41 PM [facility]) Cholesterol 145 30 - 199 mg/dL Comment: [...] 2017. Triglycerides 453(H) <=149 mg/dL [facility] Comment: Interpretive Data Ages < or [...] revised on 2017. HDL 22(L) >=40 mg/dL [facility] Comment: Interpretive Data Ages < or [...] on 2017. LDL, calculated See Comment <=129 [facility] Comment: Unable to calculate LDL due [...] on 2023. Non-HDL Cholesterol 123 mg/dL [facility] Comment: Interpretive Data Ages < or [...] last revised on 2017. Chol/HDL ratio 7 [facility] Blood 04/10/2024 11:4 1 PM [facility] 04/10/2024 11:55 PM [facility] us Nicole Boo MD LAB BLOOD ORDERABLES Final Result [facility] [place] [address] from Last 3 Months or Most Recently Relevant to Health Maintenance
[2024-11-02 23:13] VITALS: BP 151/56; PULSE 79; RESP 19; TEMP 36.4; O2SAT 100
--- OUTSIDE RECORDS SUMMARY | 2024-11-03 00:04 | XMS_ITS | Encounter Summary ---
Author Organization [facility] Address [address] [place] [address] Care Team Providers Care Top Printing Press Operator Name Role Phone Jeff Strickland MD Primary Care Provider Chan Nicholas MD Unavailable [phone] Alan Mccall MD Unavailable [phone] Pepito Haro MD PhD Unavailable Solange Guido MD Unavailable [phone] Encounter Details Date Type Department Care Team (Late st Contact Info) Description 07/26/2024 Orders Only [facility] Health Information Management [address] [place] [address] Scanning, Provider Social History Tobacco Use Types Packs/Day Years Used Date Smoking Tobacco: Never Smokeless Tobacco: Never Alcohol Use Standard Drinks/Week Comments Yes 0 (1 standard drink = 0.6 oz pur e alcohol) rarely [facility] Utilities Answer Date Recorded In the past 12 months has [employer], gas, oil, or water company threatened [...] often do you attend chur ch or baptist services? 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 [address] [id number] Consulting Physician Neurosurgery 12/03/22 Solange Guido MD [address] [facility] [address] [place] [address] Referring Physician Cardiovascular Disease 07/23/23 documented as of this encounter
--- OUTSIDE RECORDS SUMMARY | 2024-11-03 00:04 | XMS_ITS | Encounter Summary ---
Author Organization [facility] Address [address] [place] [address] Care Team Providers Care Footwear Stitcher Name Role Phone Deandre Bojorquez MD Unavailable [phone] Jeff Strickland MD Primary Care Provider [phone] Encounter Details Date Type Department Care Team (Late st Contact Info) Description 04/29/2024 Lab Requisition [facility] [address] [place] [id number] Alan Davenport MD [facility] [place][note 2][address] 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 Answer Entry Date Author No 08/04/2020 12:15 PM CDT Monique Suárez RN documented in this encounter Plan of Treatment Upcoming Encounters Date Type Department Care Team (Late st Contact Info) Description 12/06/2024 10:40 AM CDT Office Visit [facility] - Endocrinology [address] [facility], [place] [address] Marbin Flores MD [address] [facility] DIV OF [place] [address] Niraj Turner MD [address] [facility] 2L [place] [address] documented as of this encounter Procedures Procedure Name Priority Date/Time Associated Diagnosis Comments HOLD HLA SPECIMEN Routine 04/27/2024 1:4 8 PM CDT documented in this encounter Results * HOLD HLA SPECIMEN (04/27/2024 1:48 PM CDT) Hold HLA Specimen 04/29/2024 3:02 PM CDT [facility] Comment:The Hold HLA specime n has been received into the lab and will be held for 5 years at 4 degrees. Blood BLOOD SPECIMEN / Unknown 04/27/2024 1:48 PM CDT 04/29/2024 1:49 PM CDT Alan Davenport MD LAB - BLOOD BANK ORDERABLES F inal Result [facility] [address] [place] [address], [facility] documented in this encounter Visit Diagnoses Not on filedocumented in this encounter Additional Health Concerns Infection Onset Date Last Indicated Resolved Time COVID-19 Under Investigation 09/13/2024 09/13/2024 09/13/2024 6:36 AM CDT documented as of this encounter Care Teams Footwear Stitcher Relationship Specialty Start Date End Date Jeff Strickland MD [address] [place] [address] PCP - General 03/05/18 [place] [address] [facility] [address] [place] [address] Orthopedic Surgery 03/28/17 documented as of this encounter
--- OUTSIDE RECORDS SUMMARY | 2024-11-03 00:04 | XMS_ITS | Encounter Summary ---
Author Organization [facility] Address [address] [place] [address] Care Team Providers Care Predator Control Trapper Name Role Phone Deandre Bojorquez MD Unavailable [phone] Jeff Strickland MD Primary Care Provider [phone] Encounter Details Date Type Department Care Team (Late st Contact Info) Description 03/12/2024 Lab Requisition [facility] [address] [place] [phone] Alan Davenport MD [facility] OF [place] [address] Social History Tobacco Use Types Packs/Day Years Used Date Smoking Tobacco: Never Smokeless Tobacco: Never Alcohol Use Standard Drinks/Week Comments Not Currently 0 (1 standard drink = 0.6 oz pur e alcohol) socially in past Sex and Gender Information Value Date Recorded Sex Assigned at Male 07/02/2021 2:37 PM CDT Legal Sex Male 10:14 PM OPERATIONS AND INTELLIGENCE ASSISTANT Gender Identity Male 07/02/2021 2:37 PM CDT [...] Description 12/06/2024 10:40 AM CDT Office Visit [facility] - Endocrinology [address] [facility], [place] [address] Marbin Flores MD [address] [facility] DIV OF [place] [address] Niraj Turner MD [address] [facility] 2L [place] [address] documented as of this encounter Procedures Procedure Name Priority Date/Time Associated Diagnosis Comments HOLD HLA SPECIMEN Routine 03/05/2024 1:4 0 PM OPERATIONS AND INTELLIGENCE ASSISTANT documented in this encounter Results * HOLD HLA SPECIMEN (03/05/2024 1:40 PM OPERATIONS AND INTELLIGENCE ASSISTANT) Hold HLA Specimen 03/12/2024 3:00 PM OPERATIONS AND INTELLIGENCE ASSISTANT [facility] Comment:The Hold HLA specime n has been received into the lab and will be held for 5 years at 4 degrees. Blood BLOOD SPECIMEN / Unknown 03/05/2024 1:40 PM OPERATIONS AND INTELLIGENCE ASSISTANT 03/12/2024 1:40 PM OPERATIONS AND INTELLIGENCE ASSISTANT Alan Davenport MD LAB - BLOOD BANK ORDERABLES F inal Result [facility] [address] [place] [address], [facility] documented in this encounter Visit Diagnoses Not on filedocumented in this encounter Additional Health Concerns Infection Onset Date Last Indicated Resolved Time COVID-19 Under Investigation 09/13/2024 09/13/2024 09/13/2024 6:36 AM CDT documented as of this encounter Care Teams Predator Control Trapper Relationship Specialty Start Date End Date Jeff Strickland MD [address] [place] [address] PCP - General 03/05/18 [place] [address] [address] Orthopedic Surgery 03/28/17 documented as of this encounter
--- OUTSIDE RECORDS SUMMARY | 2024-11-03 00:04 | XMS_ITS | Encounter Summary ---
Author Organization [facility] Address [facility] [place] [address] Care Team Providers Care Precision Grinder External Name Role Phone Deandre Bojorquez MD Unavailable [phone] Jeff Strickland MD Primary Care Provider [phone] Encounter Details Date Type Department Care Team (Late st Contact Info) Description 05/29/2023 Lab Requisition [facility] MAIN LAB [address] [place] [phone] Alan Davenport MD [facility] [place] [address] Social History Tobacco Use Types Packs/Day Years Used Date Smoking Tobacco: Never Smokeless Tobacco: Never Alcohol Use Standard Drinks/Week Comments Not Currently 0 (1 standard drink = 0.6 oz pur e alcohol) socially in past Sex and Gender Information Value Date Recorded Sex Assigned at Male 07/02/2021 2:37 PM CDT Legal Sex Male 10:14 PM SPONGE DIVER Gender Identity Male 07/02/2021 2:37 PM CDT [...] Description 12/06/2024 10:40 AM CDT Office Visit [facility] - Endocrinology [address] [facility], [place] [address] Marbin Flores MD 1201 [facility] DIV [place] [address] Niraj Turner MD [address] [facility] 2L [place] [address] documented as of this encounter Procedures Procedure Name Priority Date/Time Associated Diagnosis Comments HOLD HLA SPECIMEN Routine 05/21/2023 9:2 4 AM CDT documented in this encounter Results * HOLD HLA SPECIMEN (05/21/2023 9:24 AM CDT) Hold HLA Specimen 05/29/2023 10:30 AM CDT [facility] ([facility]) Comment:The Hold HLA specime n has been received into the lab and will be held for 5 years at 4 degrees. Blood BLOOD SPECIMEN / Unknown 05/21/2023 9:24 AM CDT 05/29/2023 9:24 AM CDT Alan Davenport MD LAB - BLOOD BANK ORDERABLES F inal Result [facility] ([facility]) [address] [place] [address], [facility] documented in this encounter Visit Diagnoses Not on filedocumented in this encounter Additional Health Concerns Infection Onset Date Last Indicated Resolved Time COVID-19 Under Investigation 09/13/2024 09/13/2024 09/13/2024 6:36 AM CDT documented as of this encounter Care Teams Precision Grinder External Relationship Specialty Start Date End Date Jeff Strickland MD [address] [place] [address] PCP - General 03/05/18 [place] [address] [place] [address] Orthopedic Surgery 03/28/17 documented as of this encounter
--- OUTSIDE RECORDS SUMMARY | 2024-11-03 00:04 | XMS_ITS | Encounter Summary ---
Author Organization [facility] Address [facility]3 [place] [address] Care Team Providers Care Regional Director Of Admissions Name Role Phone Deandre Bojorquez MD Unavailable [phone] Jeff Strickland MD Primary Care Provider [phone] Encounter Details Date Type Department Care Team (Late st Contact Info) Description 09/30/2023 Lab Requisition [facility] MAIN LAB [address] [place] [address] Alan Davenport MD 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 Gender Identity Male 07/02/2021 2:37 PM [...] 12/06/2024 10:40 AM CDT Office Visit [facility] - Endocrinology [address] [facility], [place] [address] Marbin Flores MD 1201 [facility] DIV OF [place] [address] Niraj Turner MD 1225 [facility] 2L [place] [address] documented as of this encounter Procedures Procedure Name Priority Date/Time Associated Diagnosis Comments HOLD HLA SPECIMEN Routine 09/24/2023 3:2 7 PM CDT documented in this encounter Results * HOLD HLA SPECIMEN (09/24/2023 3:27 PM CDT) Hold HLA Specimen 09/30/2023 4:32 PM CDT [facility] ([facility]) Comment:The Hold HLA specime n has been received into the lab and will be held for 5 years at 4 degrees. Blood BLOOD SPECIMEN / Unknown 09/24/2023 3:27 PM CDT 09/30/2023 3:27 PM CDT Alan Davenport MD LAB - BLOOD BANK ORDERABLES F inal Result [facility] ([facility] [address] [place] [address], [facility] documented in this encounter Visit Diagnoses Not on filedocumented in this encounter Additional Health Concerns Infection Onset Date Last Indicated Resolved Time COVID-19 Under Investigation 09/13/2024 09/13/2024 09/13/2024 6:36 AM CDT documented as of this encounter Care Teams Regional Director Of Admissions Relationship Specialty Start Date End Date Jeff Strickland MD [address] [place] [address] PCP - General 03/05/18 [place] [address] [facility] [address] [place] [address] Orthopedic Surgery 03/28/17 documented as of this encounter
--- OUTSIDE RECORDS SUMMARY | 2024-11-03 00:04 | XMS_ITS | Encounter Summary ---
Author Organization [facility] Address [address] [place] [address] Care Team Providers Care Storm Sash Maker Name Role Phone Deandre Bojorquez MD Unavailable [phone] Jeff Strickland MD Primary Care Provider [phone] Encounter Details Date Type Department Care Team (Late st Contact Info) Description 09/10/2024 Telephone [facility] - Centralized Scheduling [facility] [place] [address] Niraj Turner MD [facility] [place] [address] Social History Tobacco Use Types Packs/Day Years [...] and heating? Not hard at all 09/14/2024 [facility] [place] of Occupat [facility] - Occupational Stress Questionnaire Answer [...] in a senior care (including now)? No 09/14/2024 Sex and Gender Information Value Date Recorded Sex Assigned at Male 07/02/2021 2:37 PM CDT Legal Sex Male 10:14 PM DIRECTOR MUSIC Gender Identity Male 07/02/2021 2:37 PM CDT [...] [facility] - Endocrinology [address] [place] [address], [place] [address] Marbin Flores MD 1201 [facility] DIV [place] [address] Niraj Turner MD 1225 [facility] 2L [place] [address] documented as of this encounter Visit Diagnoses Not on filedocumented in this encounter Additional Health Concerns Infection Onset Date Last Indicated Resolved Time COVID-19 Under Investigation 09/13/2024 09/13/2024 09/13/2024 6:36 AM CDT documented as of this encounter Care Teams Storm Sash Maker Relationship Specialty Start Date End Date Jeff Strickland MD [address] [place] [address] PCP - General 03/05/18 [place] [address] [place] [address] Orthopedic Surgery 03/28/17 documented as of this encounter
--- OUTSIDE RECORDS SUMMARY | 2024-11-03 00:04 | XMS_ITS | Clinical Summary ---
Author Organization [facility] Address [address] [place] [address] Care Team Providers Care Dry Heat Cabinet Attendant Name Role Phone Jeff Strickland MD [...] mouth daily. Active nystatin-triamc inolone (MYCOLOG II) 280647-2.1 UNIT/GM-% Cream 5 Active ondansetron (ZOFRAN-ODT) 4 [...] 10/29/2024 Telephone [facility] - Cardiology [facility] #2 [place] [address] Suly Smith APRN, PHONE REPRESENTATIVE 10/15/2024 Telephone [facility] Cardiology [facility] #[address] [place] [address] Hannah Goodman MD 10/14/2024 2:40 PM CDT Clinical Support [facility] #2 [place] [address] [facility] Cardiology Dressing change (Primary Dx) Discharge [...] Medical Group - Cardiology - [facility] #2 [place] [address] Hannah Goodman MD 2 [facility] [address] [place] [address] 04/11/2025 11:30 AM MAT PUNCHER Office Visit [facility] - Cardiology - [place] #2 [facility], [place] [address] Maylin Cutler, 2 [facility] [address] [place] [address] Health Maintenance Due Date Last Done Comments [...] topic Insurance MEDICARE C AETNA Care Teams Dry Heat Cabinet Attendant Relationship Specialty Start Date End Date Jeff Strickland MD [address] [place] [address] PCP - General Family Medicine 10/14/24
--- OUTSIDE RECORDS SUMMARY | 2024-11-03 00:04 | XMS_ITS | Encounter Summary ---
Author Organization [facility] Address [address] [facility] [place] [address] Care Team Providers Care Research Biostatistician Name Role Phone Deandre Bojorquez MD Unavailable [phone] Jeff Strickland MD Primary Care Provider [phone] Reason for Visit * Reason Onset Date Comments Post-Op 09/03/2024 Encounter Details Date Type Department Care Team (Late st Contact Info) Description 09/03/2024 Telephone [facility] - Cardiology [address] [facility], [facility] [address] [place] [address] Hannah Goodman MD 1201 S [facility] CARDIOLOGY 2L [place] [address] Post-Op Social History Tobacco Use Types Packs/Day [...] and heating? Not hard at all 09/04/2024 [facility] [place] of Occupat ional Health - Occupational Stress [...] any time in the past 12 m [facility], were you homeless or living in a long-term (including now)? 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 DRIVER Gender Identity Male 07/02/2021 2:37 PM [...] confused post op Patient Call Back number: [phone] documented in this encounter Plan of Treatment Upcoming Encounters Date Type Department Care Team (Late st Contact Info) Description 12/06/2024 10:40 AM CDT Office Visit [facility] - Endocrinology [facility]5 [facility], [place] [address] Marbin Flores MD 1201 [facility] DIV OF [place] [address] Niraj Turner MD 1225 [facility] 2L [place] [address] documented as of this encounter Visit Diagnoses Not on filedocumented in this encounter Additional Health Concerns Infection Onset Date Last Indicated Resolved Time COVID-19 Under Investigation 09/13/2024 09/13/2024 09/13/2024 6:36 AM CDT documented as of this encounter Care Teams Research Biostatistician Relationship Specialty Start Date End Date Jeff Strickland MD [address] [place] [address] PCP - General 03/05/18 [place] [address] [address] Orthopedic Surgery 03/28/17 documented as of this encounter
--- OUTSIDE RECORDS SUMMARY | 2024-11-03 00:04 | XMS_ITS | Encounter Summary ---
Author Organization [facility] Address [address] [place] [address] Care Team Providers Care College Dean Name Role Phone Deandre Bojorquez MD Unavailable [phone] Jeff Strickland MD Primary Care Provider [phone] Encounter Details Date Type Department Care Team (Late st Contact Info) Description 10/28/2023 Lab Requisition [facility] MAIN LAB [address] [place] [phone] Alan Davenport MD [facility]1 [facility] OF ABD [place] [address] Social History Tobacco Use Types Packs/Day Years Used Date Smoking Tobacco: Never Smokeless Tobacco: Never Alcohol Use Standard Drinks/Week Comments Not Currently 0 (1 standard drink = 0.6 oz pur e alcohol) socially in past Sex and Gender Information Value Date Recorded Sex Assigned at Male 07/02/2021 2:37 PM CDT 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 Gender Identity Male 07/02/2021 2:37 PM CDT [...] 12/06/2024 10:40 AM CDT Office Visit [facility] - Endocrinology 1225 [facility], [place] [address] Marbin Flores MD 1201 [facility] DIV OF ABD [place] [address] Niraj Turner MD 1225 [facility] 2L [place] [address] documented as of this encounter Procedures Procedure Name Priority Date/Time Associated Diagnosis Comments HOLD HLA SPECIMEN Routine 10/22/2023 3:5 0 PM CDT documented in this encounter Results * HOLD HLA SPECIMEN (10/22/2023 3:50 PM CDT) Hold HLA Specimen 10/28/2023 5:00 PM CDT [facility] ([facility]) Comment:The Hold HLA specime n has been received into the lab and will be held for 5 years at 4 degrees. Blood BLOOD SPECIMEN / Unknown 10/22/2023 3:50 PM CDT 10/28/2023 3:50 PM CDT Alan Davenport MD LAB - BLOOD BANK ORDERABLES F inal Result [facility] ([facility] [address] [place] [address], [facility] documented in this encounter Visit Diagnoses Not on filedocumented in this encounter Additional Health Concerns Infection Onset Date Last Indicated Resolved Time COVID-19 Under Investigation 09/13/2024 09/13/2024 09/13/2024 6:36 AM CDT documented as of this encounter Care Teams College Dean Relationship Specialty Start Date End Date Jeff Strickland MD [address] [place] [address] PCP - General 03/05/18 [place] [address] [facility] [address] [place] [address] Orthopedic Surgery 03/28/17 documented as of this encounter
--- OUTSIDE RECORDS SUMMARY | 2024-11-03 00:04 | XMS_ITS | Encounter Summary ---
Author Organization [facility] Address [address] [place] [address] Phone Care Team Providers Care Social Worker Masters Name Role Phone Jeff Strickland MD Primary Care Provider Chan Nicholas MD Unavailable [phone] Alan Mccall MD Unavailable [phone] Lorna Lantigua MD Unavailable Juliette Savage RN Unavailable [phone] Pepito Haro MD PhD Unavailable Solange Guido MD Unavailable Letha Gil RN Unavailable Encounter Details Date Type Department Care Team (Late st Contact Info) Description 05/02/2021 Ophth Exam [facility] Medicine Ophthalmology [address] [place] [address] 1st [place] [address] Corina Ventura MD PhD [address] [address] Social History Tobacco Use Types [...] on file Legal Sex Male 2:23 AM 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 04/08/2023 04/10/2023 07/07/2023 3:06 AM C DT COVID: Suspected 04/10/2024 04/10/2024 04/11/2024 1:24 AM SMOG TECHNICIAN C. difficile suspected 04/11/2024 04/11/202404/11 1:21 PM SMOG TECHNICIAN documented as of this encounter Eye Exam [...] arcade Normal Periphery Normal Normal Care Teams Social Worker Masters Relationship Specialty Start Date End Date Jeff Strickland MD [address] [address] PCP - General Family Medicine 04/02/18 Chan Nicholas MD [address] [place] [address] [id number] Consulting Physician Gastroenterology 11/24/18 Alan Mccall MD [address] [place] [address] [address] Referring Physician Nephrology 11/24/18 Lorna Lantigua MD [facility] [address] [address] Consulting Physician Cardiology 11/24/18 07/22/23 Juliette Savage, RN [address] [place] [address] Nurse Navigator 06/04/21 03/14/22 Pepito Haro MD PhD [address] [place] [address] Consulting Physician Neurosurgery 12/03/22 Solange Guido MD [address] [facility] [address] [place] [address] Referring Physician Cardiovascular Disease 07/23/23 Letha Gil, RN 4590 [facility] 5300 [place] [address] SHOP Outpatient Vessel Welder 04/14/24 04/18/24 documented as of this encounter
--- OUTSIDE RECORDS SUMMARY | 2024-11-03 00:04 | XMS_ITS | Encounter Summary ---
Author Organization [facility] Address [address] [place] [address] Care Team Providers Care Microfilm Technician Name Role Phone Deandre Bojorquez MD Unavailable [phone] Jeff Strickland MD Primary Care Provider [phone] Encounter Details Date Type Department Care Team (Late st Contact Info) Description 06/25/2024 Lab Requisition [facility] MAIN LAB [address] [place] [address] Alan Davenport MD [facility]1 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 Gender Identity Male 07/02/2021 2:37 PM [...] 12/06/2024 10:40 AM CDT [facility] Visit [facility] - Endocrinology 1225 [facility], [place] [address] Marbin Flores MD 1201 [facility] DIV [place] [address] Niraj Turner MD 1225 [facility] 2L [place] [address] documented as of this encounter Procedures Procedure [...] F inal Result [facility] ([facility] [address] [place] [address], [facility] documented in this encounter Visit Diagnoses Not on filedocumented in this encounter Additional Health Concerns Infection Onset Date Last Indicated Resolved Time COVID-19 Under Investigation 09/13/2024 09/13/2024 09/13/2024 6:36 AM CDT documented as of this encounter Care Teams Microfilm Technician Relationship Specialty Start Date End Date Jeff Strickland MD [address] [place] [address] PCP - General 03/05/18 [place] [address] [facility] [address] [place] [address] Orthopedic Surgery 03/28/17 documented as of this encounter
--- OUTSIDE RECORDS SUMMARY | 2024-11-03 00:04 | XMS_ITS | Encounter Summary ---
Author Organization [facility] Healthcare Address [address] [place] [address] Care Team Providers Care Roof Painter Name Role Phone Jeff Strickland MD Primary Care Provider Chan Nicholas MD Unavailable [phone] Alan Mccall MD Unavailable [phone] Pepito Haro MD PhD Unavailable Solange Guido MD Unavailable [phone] Encounter Details Date Type Department Care Team (Late st Contact Info) Description 07/28/2024 Orders Only [facility] Health Information Management [address] [place] [address] Scanning, Provider Social History Tobacco Use Types Packs/Day Years Used Date Smoking Tobacco: Never Smokeless Tobacco: Never Alcohol Use Standard Drinks/Week Comments Yes 0 (1 standard drink = 0.6 oz pur e alcohol) rarely [facility] Utilities Answer Date Recorded In the past 12 months has [employer] electric, gas, oil, or water company threatened [...] often do you attend chur ch or episcopal services? 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 Gender Identity Not on file Sexual [...] on filedocumented in this encounter Care Teams Roof Painter Relationship Specialty Start Date End Date Jeff Strickland MD [facility] [address] [place] [id number] PCP - General Family Medicine 04/02/18 Chan Nicholas MD [facility] [address] [address] Consulting Physician Gastroenterology 11/24/18 Alan Mccall MD [facility] [address] [address] Referring Physician Nephrology 11/24/18 Pepito Haro MD PhD [address] [place] [address] Consulting Physician Neurosurgery 12/03/22 Solange Guido MD [address] [facility] 1120 [place] [address] Referring Physician Cardiovascular Disease 07/23/23 documented as of this encounter
--- OUTSIDE RECORDS SUMMARY | 2024-11-03 00:04 | XMS_ITS | Encounter Summary ---
Author Organization [facility] Address [facility] [place] [address] Care Team Providers Care Intensive Care Specialist Name Role Phone Deandre Bojorquez MD Unavailable Jeff Strickland MD Primary Care Provider Encounter Details Date Type Department Care Team (Late st Contact Info) Description 03/30/2024 Lab Requisition [facility] MAIN LAB [address] [place] [phone] Alan Davenport MD [facility]1 [facility] [place] [address] Social History Tobacco Use Types Packs/Day Years Used Date Smoking Tobacco: Never Smokeless Tobacco: Never Alcohol Use Standard Drinks/Week Comments Not Currently 0 (1 standard drink = 0.6 oz pur e alcohol) socially in past Sex and Gender Information Value Date Recorded Sex Assigned at Male 07/02/2021 2:37 PM CDT 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 Gender Identity Male 07/02/2021 2:37 PM [...] Description 12/06/2024 10:40 AM CDT Office Visit [facility] Group - Endocrinology [address] [facility], [place] [address] Marbin Flores MD 1201 [facility] DIV [place] [address] Niraj Turner MD 1225 [facility] 2L [place] [address] documented as of this encounter Procedures Procedure Name Priority Date/Time Associated Diagnosis Comments HOLD HLA SPECIMEN Routine 03/25/2024 2:5 1 PM RECRUITMENT ADVERTISING MANAGER documented in this encounter Results * HOLD HLA SPECIMEN (03/25/2024 2:51 PM RECRUITMENT ADVERTISING MANAGER) Hold HLA Specimen 03/30/2024 4:01 PM RECRUITMENT ADVERTISING MANAGER [facility] ([facility] Comment:The Hold HLA specime n has been received into the lab and will be held for 5 years at 4 degrees. Blood BLOOD SPECIMEN / Unknown 03/25/2024 2:51 PM RECRUITMENT ADVERTISING MANAGER 03/30/2024 2:51 PM RECRUITMENT ADVERTISING MANAGER Alan Davenport MD LAB - BLOOD BANK ORDERABLES F inal Result [facility] [address] [place] [address], [facility] documented in this encounter Visit Diagnoses Not on filedocumented in this encounter Additional Health Concerns Infection Onset Date Last Indicated Resolved Time COVID-19 Under Investigation 09/13/2024 09/13/2024 09/13/2024 6:36 AM CDT documented as of this encounter Care Teams Intensive Care Specialist Relationship Specialty Start Date End Date Jeff Strickland MD [address] [place] [address] PCP - General 03/05/18 [place] [address] [address] Orthopedic Surgery 03/28/17 documented as of this encounter
--- OUTSIDE RECORDS SUMMARY | 2024-11-03 00:04 | XMS_ITS | Encounter Summary ---
Author Organization [facility] Address [address] [place] [address] Care Team Providers Care Urogynaecologist Name Role Phone Deandre Bojorquez MD Unavailable [phone] Jeff Strickland MD Primary Care Provider [phone] Encounter Details Date Type Department Care Team (Late st Contact Info) Description 02/04/2024 Lab Requisition [facility] MAIN LAB [address] [place] [id number] Alan Davenport MD [facility] OF [place]BD [place] [address] Social History Tobacco Use Types Packs/Day Years Used Date Smoking Tobacco: Never Smokeless Tobacco: Never Alcohol Use Standard Drinks/Week Comments Not Currently 0 (1 standard drink = 0.6 oz pur e alcohol) socially in past Sex and Gender Information Value Date Recorded Sex Assigned at Male 07/02/2021 2:37 PM CDT 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 Sex Male 10:14 PM 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 Gender Identity Male 07/02/2021 2:37 PM CDT [...] [facility] - End[facility]ology [address] [facility], [place] [address] Marbin Flores MD [address] [facility] DIV OF ABD [place] [address] Niraj Turner MD [address] [facility] 2L [place] [address] documented as of this encounter Procedures Procedure Name Priority Date/Time Associated Diagnosis Comments HOLD HLA SPECIMEN Routine 01/27/2024 3:2 3 PM 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 documented in this encounter Results * HOLD HLA SPECIMEN (01/27/2024 3:23 PM 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) Hold HLA Specimen 02/04/2024 4:31 PM 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 [facility] ([facility]) Comment:The Hold HLA specime n has been received into the lab and will be held for 5 years at 4 degrees. Blood BLOOD SPECIMEN / Unknown 01/27/2024 3:23 PM 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 02/04/2024 3:23 PM 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 Alan Davenport MD LAB - BLOOD BANK ORDERABLES F inal Result [facility]) [address] [place] [address], [facility] documented in this encounter Visit Diagnoses Not on filedocumented in this encounter Additional Health Concerns Infection Onset Date Last Indicated Resolved Time COVID-19 Under Investigation 09/13/2024 09/13/2024 09/13/2024 6:36 AM CDT documented as of this encounter Care Teams Urogynaecologist Relationship Specialty Start Date End Date Jeff Strickland MD [address] [place] [address] PCP - General 03/05/18 [place] [address] [address] Orthopedic Surgery 03/28/17 documented as of this encounter
--- OUTSIDE RECORDS SUMMARY | 2024-11-03 00:04 | XMS_ITS | Encounter Summary ---
Author Organization [facility] Address [address] [place] [address] Care Team Providers Care Applications Developer Name Role Phone Deandre Bojorquez MD Unavailable Jeff Strickland MD Primary Care Provider Encounter Details Date Type Department Care Team (Late st Contact Info) Description 02/07/2023 Lab Requisition [facility] MAIN LAB [address] [place] [id number] Alan Davenport MD [facility] OF [place] [address] Social History Tobacco Use Types Packs/Day Years Used Date Smoking Tobacco: Never Smokeless Tobacco: Never Alcohol Use Standard Drinks/Week Comments Not Currently 0 (1 standard drink = 0.6 oz pur e alcohol) socially in past Sex and Gender Information Value Date Recorded Sex Assigned at Male 07/02/2021 2:37 PM CDT 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 Gender Identity Male 07/02/2021 2:37 PM [...] Description 12/06/2024 10:40 AM CDT Office Visit [facility] - Endocrinology [address] [facility], [place] [address] Marbin Flores MD [address] [facility] DIV OF [place] [address] Niraj Turner MD [address] [facility] 2L [place] [address] documented as of this encounter Procedures Procedure Name Priority Date/Time Associated Diagnosis Comments HOLD HLA SPECIMEN Routine 2023 7:5 8 AM AMBULANCE OFFICER documented in this encounter Results * HOLD HLA SPECIMEN (2023 7:58 AM AMBULANCE OFFICER) Hold HLA Specimen 02/07/2023 9:01 AM AMBULANCE OFFICER [facility] ([facility]) Comment:The Hold HLA specime n has been received into the lab and will be held for 5 years at 4 degrees. Blood BLOOD SPECIMEN / Unknown 2023 7:58 AM AMBULANCE OFFICER 02/07/2023 7:59 AM AMBULANCE OFFICER Alan Davenport MD LAB - BLOOD BANK ORDERABLES F inal Result [facility] [address] [place] [address], [facility] documented in this encounter Visit Diagnoses Not on filedocumented in this encounter Additional Health Concerns Infection Onset Date Last Indicated Resolved Time COVID-19 Under Investigation 09/13/2024 09/13/2024 09/13/2024 6:36 AM CDT documented as of this encounter Care Teams Applications Developer Relationship Specialty Start Date End Date Jeff Strickland MD [address] [place] [address] PCP - General 03/05/18 [place] [address] [address] Orthopedic Surgery 03/28/17 documented as of this encounter
--- OUTSIDE RECORDS SUMMARY | 2024-11-03 00:04 | XMS_ITS | Encounter Summary ---
Author Organization [facility] Address [facility] [place] [address] Care Team Providers Care Hotel Dining Room Cashier Name Role Phone Deandre Bojorquez MD Unavailable [phone] Jeff Strickland MD Primary Care Provider [phone] Encounter Details Date Type Department Care Team (Late st Contact Info) Description 11/21/2023 Lab Requisition [facility] MAIN LAB [address] [place] [phone] Alan Davenport MD [facility] [place] [address] Social History Tobacco Use Types Packs/Day Years Used Date Smoking Tobacco: Never Smokeless Tobacco: Never Alcohol Use Standard Drinks/Week Comments Not Currently 0 (1 standard drink = 0.6 oz pur e alcohol) socially in past Sex and Gender Information Value Date Recorded Sex Assigned at Male 07/02/2021 2:37 PM CDT 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 Gender Identity Male 07/02/2021 2:37 PM CDT [...] Description 12/06/2024 10:40 AM CDT Office Visit [facility] - Endocrinology [address] [facility], [place] [address] Marbin Flores MD [address] [facility] DIV [place] [address] Niraj Turner MD [address] [facility] 2L [place] [address] documented as of this encounter Procedures Procedure [...] F inal Result [facility] ([facility]) [address] [place] [address], [facility] documented in this encounter Visit Diagnoses Not on filedocumented in this encounter Additional Health Concerns Infection Onset Date Last Indicated Resolved Time COVID-19 Under Investigation 09/13/2024 09/13/2024 09/13/2024 6:36 AM CDT documented as of this encounter Care Teams Hotel Dining Room Cashier Relationship Specialty Start Date End Date Jeff Strickland MD [address] [place] [address] PCP - General 03/05/18 [place] [address] [place] [address] Orthopedic Surgery 03/28/17 documented as of this encounter
--- OUTSIDE RECORDS SUMMARY | 2024-11-03 00:04 | XMS_ITS | Encounter Summary ---
Author Organization [facility] Address [facility] [place] [address] Care Team Providers Care Learning And Development Associate Name Role Phone Deandre Bojorquez MD Unavailable [phone] Jeff Strickland MD Primary Care Provider [phone] Encounter Details Date Type Department Care Team (Late st Contact Info) Description 04/10/2023 Lab Requisition [facility] MAIN LAB [address] [place] [address] Alan Davenport MD 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 Gender Identity Male 07/02/2021 2:37 PM CDT [...] 10:40 AM CDT Office Visit [facility] - Endocrinology [address] [facility], [place] [address] Marbin Flores MD [address] [facility] DIV OF ABD [place] [address] Niraj Turner MD [address] [facility] 2L [place] [address] documented as of this encounter Procedures Procedure Name Priority Date/Time Associated Diagnosis Comments HOLD HLA SPECIMEN Routine 04/02/2023 3:0 1 PM FREIGHT DISPATCHER documented in this encounter Results * HOLD HLA SPECIMEN (04/02/2023 3:01 PM FREIGHT DISPATCHER) Hold HLA Specimen 04/10/2023 4:01 PM FREIGHT DISPATCHER [facility] ([facility]) Comment:The Hold HLA specime n has been received into the lab and will be held for 5 years at 4 degrees. Blood BLOOD SPECIMEN / Unknown 04/02/2023 3:01 PM FREIGHT DISPATCHER 04/10/2023 3:01 PM FREIGHT DISPATCHER Alan Davenport MD LAB - BLOOD BANK ORDERABLES F inal Result [facility] [address] [place] [address], [facility] documented in this encounter Visit Diagnoses Not on filedocumented in this encounter Additional Health Concerns Infection Onset Date Last Indicated Resolved Time COVID-19 Under Investigation 09/13/2024 09/13/2024 09/13/2024 6:36 AM CDT documented as of this encounter Care Teams Learning And Development Associate Relationship Specialty Start Date End Date Jeff Strickland MD [address] [place] [address] PCP - General 03/05/18 [place] [address] [address] Orthopedic Surgery 03/28/17 documented as of this encounter
--- OUTSIDE RECORDS SUMMARY | 2024-11-03 00:04 | XMS_ITS | Encounter Summary ---
Author Organization [facility] Address [address] [place] [address] Care Team Providers Care Warehouse Distribution Associate Name Role Phone Deandre Bojorquez MD Unavailable [phone] Jeff Strickland MD Primary Care Provider [phone] Encounter Details Date Type Department Care Team (Late st Contact Info) Description 07/31/2023 Lab Requisition [facility] MAIN LAB [address] [place] [phone] Alan Davenport MD [facility] OF ABD [place] [address] Social History Tobacco Use Types Packs/Day Years Used Date Smoking Tobacco: Never Smokeless Tobacco: Never Alcohol Use Standard Drinks/Week Comments Not Currently 0 (1 standard drink = 0.6 oz pur e alcohol) socially in past Sex and Gender Information Value Date Recorded Sex Assigned at Male 07/02/2021 2:37 PM CDT 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 DIV OF [place] [address] Niraj Turner MD 1225 [facility] 2L [place] [address] documented as of this encounter Procedures Procedure Name Priority Date/Time Associated Diagnosis Comments HOLD HLA SPECIMEN Routine 07/23/2023 2:0 5 PM CDT documented in this encounter Results * HOLD HLA SPECIMEN (07/23/2023 2:05 PM CDT) Hold HLA Specimen 07/31/2023 3:32 PM CDT [facility] ([facility]) Comment:The Hold HLA specime n has been received into the lab and will be held for 5 years at 4 degrees. Blood BLOOD SPECIMEN / Unknown 07/23/2023 2:05 PM CDT 07/31/2023 2:06 PM CDT Alan Davenport MD LAB - BLOOD BANK ORDERABLES F inal Result [facility]) [address] [place] [address], [facility] documented in this encounter Visit Diagnoses Not on filedocumented in this encounter Additional Health Concerns Infection Onset Date Last Indicated Resolved Time COVID-19 Under Investigation 09/13/2024 09/13/2024 09/13/2024 6:36 AM CDT documented as of this encounter Care Teams Warehouse Distribution Associate Relationship Specialty Start Date End Date Jeff Strickland MD [address] [place] [address] PCP - General 03/05/18 [place] [address] [facility] [place] [address] Orthopedic Surgery 03/28/17 documented as of this encounter
--- OUTSIDE RECORDS SUMMARY | 2024-11-03 00:05 | XMS_ITS | Clinical Summary ---
Author Organization [facility] Address [address] [place] [address] Phone Care Team Providers Care Robotic Maintenance Technician Name Role Phone Jeff Strickland MD Primary Care Provider [phone] Allergies No known active allergies Medications pantoprazole [...] tablet Take 112 mcg by mouth daily environmental issues instructor. Active aspirin (ANGELLA) 325 mg tablet Take 325 mg by mouth daily. Active Vit C-Vit H-Kadwns-BaXa-L utein (PRESERVISION) 226 mg-200 unit -5 mg-0.8 [...] Comments Blood Pressure 167/77 02/04/2019 9:16 AM CEMENTER MACHINE APPLICATOR Pulse 64 02/04/2019 9:16 AM CEMENTER MACHINE APPLICATOR Temperature 36.5 C (97.7 F) 02/04/2019 9:16 AM CEMENTER MACHINE APPLICATOR Respiratory Rate 16 02/04/2019 9:16 AM CEMENTER MACHINE APPLICATOR Oxygen Saturation 97% 02/04/2019 9:16 AM CEMENTER MACHINE APPLICATOR Inhaled Oxygen Concentration - - Weight 113.4 kg (250 lb) 02/04/2019 9:16 AM CEMENTER MACHINE APPLICATOR Height 175.3 cm (5' 9) 02/04/2019 9:16 AM CEMENTER MACHINE APPLICATOR Body Mass Index 36.92 02/04/2019 9:16 AM CEMENTER MACHINE APPLICATOR Plan of Treatment Health Maintenance Due Date [...] ACCESS/TRUE BLUE PPO AETNA MEDICARE SUPPLEMENT PPO [facility] BLUE ACCESS/TRUE BLUE PPO Care Teams Robotic Maintenance Technician Relationship Specialty Start Date End Date Jeff Strickland MD [address] [facility] [address] [place] [address] PCP - General Family Practice 01/01/19
--- OUTSIDE RECORDS SUMMARY | 2024-11-03 00:05 | XMS_ITS | Encounter Summary ---
Author Organization [facility] Address [address] [facility] [place] [address] Care Team Providers Care Seo Associate Name Role Phone Deandre Bojorquez MD Unavailable [phone] Jeff Strickland MD Primary Care Provider [phone] Encounter Details Date Type Department Care Team [...] Recorded Patient Health Questionnaire-2 Score 6 10/05/2024 [facility] of Occupat ional [facility] - Occupational Stress Questionnaire Answer Date [...] any time in the past 12 m [facility], were you homeless or living in a fpc (including now)? 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 Gender Identity Male 07/02/2021 2:37 PM [...] Endocrinology [address], [place] [address] Marbin Flores MD [address] DIV [place] [address] Niraj Turner MD [address] 2[address] [place] [address] documented as of this encounter Visit Diagnoses Not on filedocumented in this encounter Care Teams Seo Associate Relationship Specialty Start Date End Date Jeff tSrickland MD [address] [place] [address] PCP - General 03/05/18 [place] [address] [address] Orthopedic Surgery 03/28/17 documented as of this encounter
--- OUTSIDE RECORDS SUMMARY | 2024-11-03 00:05 | XMS_ITS | Clinical Summary ---
Author Organization [facility] Address [facility] [place] [address] Care Team Providers Care Green Chain Marker Name Role Phone Jeff Strickland MD Primary Care Provider [phone] Allergies Active Allergy Reactions Criticality Noted Date [...] by mouth nightly at bedtime. Active Multiple Vitamins-Wopsononock als (PRESERVISION AREDS 2 OR) Take 1 [...] 0.6 oz pur e alcohol) [facility] Utilities Answer Date Recorded In the past 12 months has th e electric, gas, oil, or water [employer] threatened to shut off services in [...] slept in a 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 (including now)? 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
--- OUTSIDE RECORDS SUMMARY | 2024-11-03 00:05 | XMS_ITS | Clinical Summary ---
Author Organization [facility] Address [address] [address] Phone Care Team Providers Care Portfolio Assistant Name Role Phone Jeff Strickland MD Primary Care Provider [phone] Allergies No known active allergies Medications levothyroxine [...] tablet 3 0 Active Continuous Blood Gluc Microstrategy Bi Developer (FreeStyle Em Sidon) device 1 each daily 0 Active Continuous Blood Gluc Sensor (FreeStyle Em Sensor System) misc 1 each once every 2 weeks 0 Active Lancets (OneTouch Delica Plus [id number]) misc OneTouch Delica Plus Lancet 33 gauge [...] 11/10/2019 Overview (12/17/2019): Kendall Carl 1955 Referring Prototype Fabricator: Alan Mccall Dialysis Info: NOD GFR 13 Type: Time: (Not currently on dialysis) days Blood Type: O NEG Body mass index is 37.36 kg/m . ALERTS Data Governance Consultant: needs to establish Past Medical History: Diagnosis Date Arthropathy RA. Dr Strickland manages. 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 CKD (chronic kidney disease), stage V Community acquired pneumonia 2018 [facility] hospitalized. Diabetes mellitus 20 years. Lantus pen. Esophageal reflux takes med Hypercholesteremia 5-10 yrs meds Hypertension takes meds Hypothyroidism meds 20 years Kidney stones 5-6 years ago had 2 in the same year. Malignancy right kidney 2012 Obstructive sleep apnea 3 years. [facility]. Angela remember doctors name Renal cell [...] file Gets together: Not on file Attends protestant service: Not on file Active member of [...] It is the impression of this social secretary that Kendall Gillris has several positive factors for Kidney transplant candidacy from a psychosocial perspective. Patient appears to have appropriate knowledge of illness. Patient has sufficient insurance coverage and stable financial situation for post transplant needs. No concerns regarding substance abuse, legal issues, or mental health needs. Patient has adequate support system and appropriate discharge plan. Plan: assembly worker to provide supportive services as needed. Patient appears to be a reasonable candidate for transplant from a psychosocial perspective. -Post transplant arrangement forms are needed prior to being listed. 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 [id number] Immunizations Immunization Administration Dates Next Due Influenza [...] Insurance AETNA PM INTERFACED INSURANCE Care Teams Portfolio Assistant Relationship Specialty Start Date End Date Jeff Strickland MD [address] [facility] 162 [facility] [address] [place] [address] PCP - General Internal Medicine 07/15/18
--- OUTSIDE RECORDS SUMMARY | 2024-11-03 00:05 | XMS_ITS | Encounter Summary ---
Author Organization [facility] Address [address] [place] [address] Care Team Providers Care Law Firm Partner Name Role Phone Deandre Bojorquez MD Unavailable [phone] Jeff Strickland MD Primary Care Provider [phone] Encounter Details Date Type Department Care Team (Late st Contact Info) Description 09/24/2024 Results Follow-Up [facility] Early Admission Unit [address] [place] [phone] Angel Crook MD [address] [place] [address] Social History Tobacco Use Types Packs/Day Years [...] and heating? Not hard at all 09/24/2024 [facility] [place] of Occupat ional Health - Occupational Stress [...] any time in the past 12 m [facility], were you homeless or living in a residential (including now)? 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 Gender Identity Male 07/02/2021 2:37 PM [...] [facility] - Endocrinology [address] [place] [address], [place] [address] Marbin Flores MD [address] [facility] DIV OF [place] [address] Niraj Turner MD [address] [facility] 2L Div [place] [address] documented as of this encounter Visit Diagnoses Not on filedocumented in this encounter Care Teams Law Firm Partner Relationship Specialty Start Date End Date Jeff Strickland MD [address] [place] [address] PCP - General 03/05/18 [place] [address] [place] [address] Orthopedic Surgery 03/28/17 documented as of this encounter
--- OUTSIDE RECORDS SUMMARY | 2024-11-03 00:05 | XMS_ITS | Clinical Summary ---
Author Organization [facility] Address [address] [facility] [place] [address] Care Team Providers Care Merchandising Assistant Name Role Phone Deandre Bojorquez MD Unavailable [phone] Jeff Strickland MD Primary Care Provider [phone] Source Comments [facility],non-owned Affiliates and Associated Physician Practices is amultiple site organization consisting of ambulatory clinics and hospital sitesin [place], [place], [place] and [place]. This disclosure is being madepursuant to the Care Everywhere program and may not contain all information available regarding this patient. Last updated 17.[facility] Allergies Active Allergy Reactions Criticality Noted Date [...] 80 MG tabletIndication s:Coronary artery disease involving coushatta coronary artery of coushatta heart without angina pectoris Take 1 (one) tablet by mouth once daily 90 tablet 3 12/05/19 24 Active B Uzblzlz-V-Uhrlf Acid (Dialyvite 800) 0.8 MG 1 tablet Orally Once a day for 30 day(s) Active lisinopril (Prinivil; Zestril) 20 MG tabletIndication s:Coronary artery disease involving coushatta coronary artery of coushatta heart without angina pectoris,Resista nt hypertension Take [...] Low Dose 81 MG tabletIndication s:CAD in coushatta artery TAKE 1 TABLET BY MOUTH ONCE DAILY 90 tablet 3 08/24/19 25 Active HYDROcodone-acet aminophen ([place]) 5-325 MG tablet Take 1 (one) [...] not taking.Reported on 10/19/2024 nystatin-triamci nolone (Mycolog) 659988-2.1 UNIT/GM-% cream 10/06/19 025 Discontin ued(List Clean-Up) [...] -consider sevelamer but will defer to outpt amusement or recreation card checker -avoid nephrotoxic agents, and dose meds renally [...] Assessment & Plan (09/24/2024 6:20 AM CDT): {[facility] Quick Recap - Optional:19643:::1} -continue home coreg 25 mg BID, furosemide [...] -consider sevelamer but will defer to outpt amusement or recreation card checker -avoid nephrotoxic agents, and dose meds renally -replete lytes PRN Assessment & Plan (09/24/2024 6:20 AM CDT): {[facility] Quick Recap - Optional:57499:::1} - pt missed PD 09/23 due to [...] Assessment & Plan (09/24/2024 6:20 AM CDT): {[facility] Quick Recap - Optional:25268:::1} -continue home coreg 25 mg BID, furosemide [...] if vessel amenable to PCI Atherosclerosis of coushatta ar teries of the extremities with ulceration [...] reports -Interventional cardiology c/s: -Notified of preliminary OJSIANE results - will follow Op with patient [...] Assessment & Plan (09/24/2024 6:20 AM CDT): {[facility] Quick Recap - Optional:75632:::1} -continue home coreg 25 mg BID, furosemide [...] Assessment & Plan (09/24/2024 6:20 AM CDT): {[facility] Quick Recap - Optional:25003:::1} - home glargine 35 units daily with [...] were not included. Grace Interiano 1955 Referring Honey Extractor: Alan Mccall Dialysis Info: Type: PD--> HD-->PD Time: 01/17/2020 Blood Type: O NEG Body mass index is 37.54 kg/m . ALERTS: Dr. Mendoza following enhancing lesion noted to upper pole of the left kidney. IR biopsy confirming oncocytoma in 07/2020. Guest Laundry Attendant: Nadia Stock MD ESRD r/t DM2 and HTN Past Medical History: Diagnosis Date Arthropathy Dr Strickland manages. CHF (congestive heart failure) (HCC) 2 yrs ago Director [employer] is Dr. Becerra in [place]. CKD (chronic kidney disease), stage V (HCC) Community acquired pneumonia 2018 [facility] hospitalized. Diabetes mellitus (HCC) 20 years. [facility] lee. Guest Laundry Attendant Dr. Davis at [place]. 03/26/21 last seen. Esophageal reflux takes med ESRD (end stage renal disease) (HCC) on PD as of 11/10/20 ESRD on peritoneal dialysis (HCC) Hypercholesteremia 5-10 yrs meds Hypertension 40's takes meds. Hypothyroidism meds 20 years Kidney stones 5-6 years ago had 2 in the same year. No urologist. Malignancy (HCC) right kidney 2012 Obstructive sleep apnea [address] Sergey Guevara [facility] remember doctors name SHABNAM on CPAP Renal cell carcinoma (HCC) [address] [place] Pruett surgeon. followed up every 6 [...] recently was assessed by his PCP at [facility] who performed short blessed test score [...] CL TI [chronic limb threatening ischemia] # [place] class V # Peripheral artery disease -I [...] RTC In 2 to 3 weeks at [place] (as per patient and family's request) All [...] of the time was also spent in pqvt-qy-ngxi interaction with the patient as well as formulating a plan for management. Thank you for allowing us to participate in the care of your patient and please do not hesitate to reach out to us if any questions or concerns. Yanna Goodman MD MPH Peripheral Angiogram: 08/18/2024 (PAD - L LE peripheral angiogram/ HARD TILE SETTER APPRENTICE/stenting) Conclusion Left leg angiogram showed left AT severe diffuse disease with multiple subtotal occlusion and left PT severe diffuse disease with HERBOLOGIST of distal PT without clear reconstitution. Successful [...] Plavix. -recommend close follow up with drafter construction and follow up with me in clinic [...] 0.018 CXI microcatheter with multiple wires(Command 18/command 14/Gatekeeper 200) to get to great toe branch of dorsalis pedis using pilot fuel engineer [address]. - the AT-DP lesion was dilated with balloons mentioned in figure. - We turn our attention to PT. We crossed the PT HERBOLOGIST with 0.018 CXI microcatheter with multiple wires (command 18, command 14, Gatekeeper 200) and able to go to lateral [...] using angiography. Left Posterior Tibial Ost L HARD TILE SETTER APPRENTICE to Dist L HARD TILE SETTER APPRENTICE lesion is 100% stenosed. Stenosis was measured using angiography. Intervention Ost L ROSETTA to Dist L ROSETTA lesion Angioplasty Angioplasty independent of stent deployment was performed using a standard balloon. The balloon used was Cath [id number] Emrg Mr Wh 1.5Mm 144Cm 15Mm 2. Angioplasty Angioplasty prior to stent deployment was performed using a standard balloon. The balloon used was [employer]n Dil Nanocross Elt 2-1.5Mm 150. Angioplasty Angioplasty [...] 10% residual stenosis post intervention. Ost L HARD TILE SETTER APPRENTICE to Dist L HARD TILE SETTER APPRENTICE lesion Angioplasty Angioplasty independent of stent deployment [...] 2 diabetes, hyperlipidemia, hypertension was referred to in for nonhealing left great toe ulcer after [...] CL TI [chronic limb threatening ischemia] # [place] class V # Peripheral artery disease -I [...] of the time was also spent in kbjn-zb-pvzk interaction with the patient as well as [...] or MRA given ESRD 4. Atherosclerosis of coushatta coronary artery of coushatta heart without angina pectoris 5. Hypertriglyceridemia -H/o PCI to mLAD in 07/2020, NM stress negative for ischemia in 10/2022 -Aspirin 81 mg daily, atorvastatin 80 mg daily, fenofibrate 145 mg daily -CMP, fasting lipid panel, and A1c 6. Type 2 diabetes mellitus with other specified complication, unspecified whether mcfp insulin use (HCC) -A1c 6.4% in 03/2023, [...] right eye and seeing ophthalmology for this. [id number] Gabe-Abida DP, Nikunj L, Nba J, bAner ES, Maren D, Mark D, Adrianna E, [...] opinion statement. Am J Transplant. 2020;21(2):460-474. doi: 10.1111/ajt.45754. Epub 2019Dec 09. PMID: [id number]. Urology: 08/04/2024 Attestation signed by Thomas Mendoza [...] and BerEP4. If this biopsy is patient portal representative of the entire lesion, it would [...] Krystal Abel RN Sent: 03/28/2022 2:07 PM PUBLIC WORKS MANAGER To: Martinez Sandhu MD, * Papito. I [...] Nov. Thank you Krystal Abel RN [facility], [facility] Validation Engineer [phone] endoscopic resection of a sellar mass: 11/22/2021 [...] a formal visual hay exam with his guest experience captain. We reviewed the surgical pathology report. He may restart his baby aspirin. At this time, I recommend a follow up MRI pituitary protocol in 3- 6 months with a visit with me after imaging and patient is agreeable. Strict return precautions were reviewed. IC WORKS MANAGER Pertinent Previous Committee Presentations: 10/14/2024 Committee Review [...] (higher cognitive impairment) done at outside hospital. [facility] Neuro notes sxs consistent with mild cognitive impairment. Reviewed brain MRI and CT reports. Discussed [facility] MRI report noting diffuse cerebral volume loss, slightly more than expected. Also reviewed PVD and cardiac history. Per team, no longer a candidate for transplant d/t multiple comorbidities. 07/01/2024 Committee Review Decision: Remain Inactive Committee Discussion Details: Reviewed calcifications on CT. CT reviewed at [facility] 06/24/[address] Flores. He deferred decision asking for review by additional surgeons. CT reviewed today with Dr Dvaenport and Dr Lane. Calcifications doable. Pt to [...] calculated left ventricular ejection fraction of 54%. [facility]: 07/21/2024 Conclusion 2-vessel CAD with [...] 6Fr 1.25Mm Diamondback catheter and using a [employer] [facility] Diamondback 360 Viperwire Adv wire. [...] is a 0% residual stenosis post intervention. [facility]: 08/04/2020 HEMODYNAMIC FINDINGS: LVEDP 18 [...] ANTICOAGULATION DURING PCI: Heparin INTERVENTIONAL WIRE: A Channelkit wireless pressure wire was advanced beyond the [...] 08/02/2020. 2.Peritoneal dialysis catheter in the pelvis. Uerkl-rd-mwpvkqpe volume ascites throughout the abdomen and pelvis, [...] Impression: It is the impression of this older adult social work specialist that Grace Johana Meseret has several positive [...] to be the back up caregiver. Plan: bull gang worker to provide supportive services as needed. Patient remains a reasonable candidate for transplant from a psychosocial perspective. Psychiatric Consult Recommended: No Transplant Hot Iron Worker: Malinda Escamilla, MEDICAL ONCOLOGY PHYSICIAN, TRY ON BASTER Abdominal Transplant Hot Iron Worker [phone] Transplant Caregiver Confirmation Note Caregiver Confirmation Date Primary Name of Primary: Harriet Interiano Relationship: spouse - Confirmed during initial assessment 01/14/2022 - HARD TILE SETTER APPRENTICE form received on 01/14/2022 - Secondary [...] Description 11/02/2024 1:45 PM CDT Office Visit [facility] - Vascular Surgery [address] [facility], [place] [address] Elroy Holcomb MD PAD (peripheral artery disease) (Primary Dx); Amputation of left great toe 11/02/2024 Travel 10/28/2024 12:27 PM CDT - 10/28/2024 1:05 PM CDT Emergency [facility] EMERGENCY DEPARTMENT [address] [place] [address] Chest pain, unspecified type Discharge Disposition: Left Against Medical Advice/Discontinued Care 10/28/2024 1:55 AM CDT - 10/28/2024 5:16 AM CDT Emergency [facility] EMERGENCY DEPARTMENT [address] [place] [address] Charmaine Khalil MD Chest pain, unspecified type; Abdominal distension; Atypical chest pain; History of coronary angioplasty with insertion of stent; ESRD (end stage renal disease) on dialysis (HCC); PAD (peripheral artery disease) Discharge Disposition: Left Against Medical Advice/Discontinued Care 10/27/2024 1:30 AM CDT - 10/27/2024 11:59 PM CDT Hospital Encounter [facility] MAIN LAB [address] [place] [address] Discharge Disposition: Home or Self Care 10/27/2024 Travel 10/26/2024 2:00 PM CDT Office Visit [facility] - Vascular Surgery [address] [place] [phone] Elroy Holcomb MD PAD (peripheral artery disease) (Primary Dx) 10/26/2024 Travel 10/25/2024 Telephone [facility] - Vascular Surgery [address] [place] [phone] Elroy Holcomb MD Pain; Appointment 10/21/2024 12:14 PM CDT - 10/21/2024 11:59 PM CDT Hospital Encounter [facility] LAB OP DRAW STATION [address] [place] [address] Discharge Disposition: Home or Self Care 10/21/2024 10:40 AM CDT Office Visit [facility] - Neurology [address] [place] [phone] Becky Wilson MD Confusion (Primary Dx); Memory loss 10/21/2024 Telephone [facility] - Neurology [address] [place] [phone] Becky Wilson MD Record Request 10/21/2024 Travel 10/19/2024 4:33 PM CDT - 10/19/2024 6:50 PM CDT Emergency [facility] EMERGENCY DEPARTMENT [address] [place] [phone] Kalani rBaswell MD Medication side effect (Primary Dx); Lightheadedness; Acute nonintractable headache, unspecified headache type; At risk for polypharmacy; Hypokalemia Discharge Disposition: Home or Self Care 10/19/2024 1:00 PM CDT Office Visit [facility] - Vascular Surgery [address] [place] [phone] Elroy Holcomb MD 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) (Primary Dx); PAD (peripheral artery disease) 10/19/2024 Travel 10/17/2024 9:19 PM CDT - 10/17/2024 9:53 PM CDT Emergency [facility] EMERGENCY DEPARTMENT [address] [place] [address] Other chest pain (Primary Dx) Discharge Disposition: Left Against Medical Advice/Discontinued Care 10/17/2024 Travel 10/14/2024 Telephone [facility] TRANSPLANT [address] [place] [phone] Savanna Edwards RN Kidney Transplant Evaluation 10/13/2024 1:00 PM CDT Office Visit [facility] - Cardiology [address] [facility] [address] [place] [phone] Maylin Cutler DO Memory loss (Primary Dx); Chronic diastolic heart failure (HCC); Resistant hypertension; ESRD on PD; Abnormal stress test; Coronary artery disease involving coushatta coronary artery of coushatta heart without angina pectoris; Hypertriglyceridemia; Type 2 diabetes mellitus with other specified complication, with long-term current use of insulin (HCC); PAD (peripheral artery disease) 10/13/2024 Travel 10/09/2024 5:15 PM CDT - 10/09/2024 10:17 PM CDT Emergency [facility] EMERGENCY DEPARTMENT [facility] [place] [address] Sukhwinder Wagner MD Short of breath on exertion; Memory loss Discharge Disposition: Home or Self Care 10/09/2024 Travel 10/07/2024 4:34 PM CDT - 10/07/2024 8:44 PM CDT Emergency [facility] EMERGENCY DEPARTMENT [address] [place] [address] Richard Sylvester MD Urinary tract infection associated with indwelling urethral catheter, initial encounter (Primary Dx); Headache, unspecified headache type; Hypotension, unspecified hypotension type Discharge Disposition: Home or Self Care 10/07/2024 Travel 10/05/2024 1:45 PM CDT Office Visit [facility] - Vascular Surgery [address] [facility] [place] [phone] Guy Messina MD Williams, Michael S, MD Amputation of left great toe (Primary Dx); PAD (peripheral artery disease) 10/05/2024 11:24 AM CDT - 10/05/2024 11:59 PM CDT Hospital Encounter [facility] VASCULAR US [address] [place] [address] Guy Messina MD Discharge Disposition: Home or Self Care 10/05/2024 Travel 10/04/2024 11:40 AM CDT Office Visit [facility] - Cardiology [address] [facility] [address] [place] [address] Hannah Goodman MD PAD (peripheral artery disease) (Primary Dx); Resistant hypertension; Chronic diastolic heart failure (HCC); Type 2 diabetes mellitus with other specified complication, with long-term current use of insulin (HCC) 10/04/2024 Travel 09/27/2024 Telephone [facility] - Endocrinology [address] [place] [phone] Niraj Turner MD Med Question 09/27/2024 Telephone [facility] - Endocrinology [address] [place] [phone] Niraj Turner MD Appointment 09/24/2024 Results Follow-Up [facility] Early Admission Unit [address] [place] [address] Angel Crook MD 09/24/2024 Telephone [facility] - Endocrinology [address] [place] [phone] Niraj Turner MD Appointment 09/23/2024 10:57 PM CDT - 09/25/2024 3:57 PM CDT Hospital Encounter [facility] Early Admission Unit [address] [place] [address] Jennifer Winn MD Morreale, Peter J III, MD Wheeler, Joseph R, MD Internal Medicine Discharge Disposition: Home or Self Care 09/23/2024 Travel 09/23/2024 Telephone [facility] - Cardiology [address] [facility] [address] [place] [address] Hannah Goodman MD Question 09/20/2024 Telephone [facility] - Endocrinology [address] [place] [phone] Niraj Turner MD Appointment 09/18/2024 3:46 PM CDT - 09/19/2024 12:11 AM CDT Emergency [facility] EMERGENCY DEPARTMENT [address] [place] [phone] Gricel Benedict MD Lightheadedness (Primary Dx); Transient hypotension; Generalized weakness Discharge Disposition: Home or Self Care 09/18/2024 Travel 09/17/2024 Telephone [facility] - Endocrinology [facility] [place] [address] Niraj Turner MD Appointment 09/17/2024 Telephone [facility] - Centralized Scheduling [address] [place] [address] Niraj Turner MD Appointment 09/17/2024 Telephone Transitional Care at [facility] [address] [place] [phone] Teressa Lopez, cutting supervisor 09/14/2024 10:50 AM CDT - 09/14/2024 12:29 PM CDT Surgery [facility] RITO OP [address] [place] [address] Elroy Holcomb MD LEFT GREAT TOE AMPUTATION 09/14/2024 10:44 AM CDT Anesthesia Event [facility] RITO OP [address] [place] [address] Olu Taylor, Elroy Costa CAA 09/12/2024 10:15 PM CDT - 09/16/2024 5:41 PM CDT Hospital Encounter [facility] SHORT STAY UNIT [address] [place] [address] Yuriy Lopez MD Morreale, Peter J III, MD Fazeel, Hafiz Muhammad, MD Emergency Medicine Discharge Disposition: Home Health Care [facility] 09/12/2024 Travel 09/10/2024 Telephone [facility] - Centralized Scheduling [address] [place] [phone] Niraj Turner MD 09/09/2024 Transitional Care [facility] CARE COORDINATION [address] [place] [phone] Alesia Bush RN Transitions Of Care 09/03/2024 9:47 PM CDT - 09/08/2024 3:08 PM CDT Hospital Encounter [facility] 6S ACUTE [address] [place] [phone] Charmaine Khalil MD Hoque, Farzana, MD Smutz, Kellen J, Allen Tapia MD Syed, Cezar Gauthier MD Emergency Medicine Discharge Disposition: Home or Self Care 09/03/2024 Travel 09/03/2024 Telephone [facility] - Cardiac Rehab [address] [place] [address] Aracely Tracy, learning analyst (States has discussed with pt and would like to schedule cardiac rehab. Discussed pt health, pt's expresses concern re: overall health, leg weakness. Pt is ambulatory. Discussed options with and encouraged to schedule appt with PCP and also to speak with unhairing machine operator. She and pt do not want to delay starting cardiac rehab. ) 09/03/2024 Telephone [facility] - Cardiology [address] [facility] [address] [place] [address] Hannah Goodman MD Post-Op 09/02/2024 Telephone [facility] - Cardiac Rehab [address] [place] [phone] Aracely Tracy, learning analyst 09/01/2024 10:50 AM CDT - 09/01/2024 12:36 PM CDT Surgery [facility] - Cardiac Union Organiser [address] [place] [phone] Vanessa Medina MD Temporary Pacemaker Insertion 09/01/2024 8:28 AM CDT - 09/01/2024 5:55 PM CDT Hospital Encounter [facility] RITO OP [address] [place] [address] Vanessa Medina MD Cardiac Catheterization Discharge Disposition: Home or Self Care 09/01/2024 Travel 08/30/2024 10:00 AM CDT Office Visit [facility] - Cardiology [address] [facility], [address] [address] Hannah Goodman MD PAD (peripheral artery disease) (Primary Dx); Arterial leg ulcer (HCC); ESRD on PD 08/21/2024 Refill [facility] - Cardiology [address] [facility], [address] [address] Letha Christine APRN-MOTOR VEHICLE SALESPERSON Refill Request 08/18/2024 10:05 AM CDT - 08/18/2024 12:13 PM CDT Surgery [facility] - Cardiac Union Organiser [address] [place] [address] Hannah Goodman MD Angiogram - Peripheral 08/18/2024 9:14 AM CDT - 08/19/2024 3:26 PM CDT Hospital Encounter [facility] SHORT STAY UNIT [address] [place] [address] Hannah Goodman MD Cardiac Catheterization Discharge Disposition: Home or Self Care 08/09/2024 1:40 PM CDT Office Visit [facility] - Cardiology [address] [facility], [address] [address] Hannah Goodman MD Atherosclerosis of coushatta arteries of the extremities with ulceration (HCC) (Primary Dx); Resistant hypertension 08/09/2024 Orders Only [facility] - Cardiology [address] [facility], [address] [address] Brandi Sosa RN 08/09/2024 Travel 08/04/2024 1:30 PM CDT Office Visit [facility] - Urology [address] [place] [phone] Thomas Mendoza MD Left renal mass (Primary Dx) 08/04/2024 11:19 AM CDT - 08/04/2024 11:59 PM CDT Hospital Encounter [facility] MRI [address] [place] [address] Thomas Mendoza MD Discharge Disposition: Home or Self Care 08/04/2024 Orders Only [facility] PHYS SURGERY [address] [place] [address] Joshua Rebolledo MD History of renal cell carcinoma 08/04/2024 Travel 08/03/2024 Orders Only [facility] - Cardiac Union Organiser [address] [place] [address] Hannah Goodman MD Peripheral arterial disease ; Arterial leg ulcer (HCC) from Last 3 Months Immunizations Immunization Administration Dates Next Due [employer] primary monoval ent 12+ yr 0.3mL Purple [...] [facility] [...] PM CDT Legal Sex Male 10:14 PM PUBLIC WORKS MANAGER Gender Identity Male 07/02/2021 2:37 PM [...] Description 12/06/2024 10:40 AM CDT Office Visit [facility] - Endocrinology [address] [place] [address], [place] [address] Marbin Flores MD [address] [facility] DIV OF ABD [place] [address] Niraj Turner MD [address] [facility] [address] [place] [address] Health Maintenance Due Date Last Done Comments [...] this topic Medical Devices Implanted Type Area Tool And Die Maker Level Five Device Identifier Shelf Expiration Date Model / Serial / Lot Sys Cor Stent Xience Srr 3mm 18mm Rap Ex Implanted:Qty: 1 on 08/04/2020 by Javier Lan MD at [facility] Stent Coronary [employer] 06/19/2022 [id number] Description:STENT Sys Cor Stent Xience Srr 3mm 8mm Rap Ex Implanted:Qty: 1 on 08/04/2020 by Javier Lan MD at [facility] Stent Coronary [employer] 09/03/2021 [id number] Description:stent Sys Cor Stent Sng Xd Monrl 3.5mm 48mm - [id number] Implanted:Qty: 1 on 08/18/2024 by Hannah Goodman MD at [facility] [employer] [id number] 09/07/2025 [id number] / [id number] / [id number] Sys Cor Stent Sng Xd Mr 4mm 24mm Dlv Sys - [id number] Implanted:Qty: 1 on 09/01/2024 by Vanessa Medina MD at [facility] [employer] [id number] 10/19/2025 [id number] / [id number] / [id number] Explanted Type Area Tool And Die Maker Level Five Device Identifier Shelf Expiration Date Model / Serial / Lot Cath Pace Eltrd Biplr Dist Tip Balln Flw - [id number] Explanted:Qty: 1 on 09/01/2024 at [facility] [employer] [id number] 12/17/2025 [id number] / [id number] / [id number] Procedures Procedure Name Priority Date/Time Associated Diagnosis [...] 12:24 PM CDT Coronary artery disease involving [place]ta heart with angina pectoris, unspecified vessel or [...] BLOCK Routine 09/14/2024 10:3 8 AM CDT MI AMPUTATION METATARSAL+TOE,SINGLE 09/14/2024 10:23 AM CDT Toe [...] unspecified vessel or lesion type, unspecified whether cous[place]ta or transplanted heart CCL TEMPORARY PACEMAKER INSERTION Routine 09/01/2024 2:18 PM CDT Abnormal stress test Dyspnea on exertion Pre-kidney transplant, listed Coronary artery disease with angina pectoris, unspecified vessel or lesion type, unspecified whether [place] or transplanted heart Abnormal findings on cardiac catheterization CCL CORONARY ATHERECTOMY Routine 09/01/2024 2:18 PM CDT Abnormal stress test Dyspnea on exertion Pre-kidney transplant, listed Coronary artery disease with angina pectoris, unspecified vessel or lesion type, unspecified whether [place] or transplanted heart Abnormal findings on cardiac catheterization CCL CORONARY IVUS Routine 09/01/2024 2:1 8 PM CDT Abnormal stress test Dyspnea on exertion Pre-kidney transplant, listed Coronary artery disease with angina pectoris, unspecified vessel or lesion type, unspecified whether [place] or transplanted heart Abnormal findings on cardiac catheterization CCL STAGED PERC CORONARY INTERVENTION Routine 09/01/2024 2:18 PM CDT Abnormal stress test Dyspnea on exertion Pre-kidney transplant, listed Coronary artery disease with angina pectoris, unspecified vessel or lesion type, unspecified whether [place] or transplanted heart Abnormal findings on cardiac catheterization GLUCOSE - POINT OF CARE Routine 09/01/2024 10:00 AM CDT CBC W/O DIFFERENTIAL ANDIE 09/01/2024 9:57 AM CDT Coronary artery disease with angina pectoris, unspecified vessel or lesion type, unspecified whether cous[place] or transplanted heart Abnormal findings on cardiac catheterization BASIC METABOLIC PANEL (CALCIUM TOTAL) ANDIE 09/01/2024 9:57 AM CDT Coronary artery disease with angina pectoris, unspecified vessel or lesion type, unspecified whether [place] or transplanted heart Abnormal findings on cardiac [...] Routine 08/18/2024 2:33 PM CDT Atherosclerosis of cous[place]ta arteries of the extremities with ulceration (HCC) ACT LR - POCT ([facility]) Routine 08/18/2024 2:08 PM CDT ACT LR - POCT ([facility]) Routine 08/18/2024 1:24 PM CDT ACT LR - POCT ([facility]) Routine 08/18/2024 12:57 PM CDT ACT LR - POCT ([facility]) Routine 08/18/2024 12:13 PM CDT ANGIOPLASTY PERIPHERAL ARTERY 08/18/2024 10:49 AM CDT 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) GLUCOSE - POINT OF CARE Routine 08/18/2024 10:15 AM CDT BASIC METABOLIC PANEL (CALCIUM TOTAL) ANDIE 08/18/2024 10:11 AM CDT Atherosclerosis of [place] arteries of the extremities with ulceration (HCC) CBC W/O DIFFERENTIAL ANDIE 08/18/2024 10:01 AM CDT Atherosclerosis of [place]ta arteries of the extremities with ulceration (HCC) [...] SHABNAM on CPAP Coronary artery disease involving cous[place]ta coronary artery of coushatta heart, unspecified whether angina present from Last [...] 71(H) <=35 ng/L 10/28/2024 3:13 AM CDT [facility] Delta Troponin I HS 10/28/2024 3:13 AM CDT [facility] Comment:Delta value intentio tito not calculated. Baseline to 1 hour specimen collection interval exceeded. Blood BLOOD SPECIMEN / Unknown Venipuncture / Unknown 10/28/2024 2:31 AM CDT 10/28/2024 2:37 AM CDT us Savanna Mcfarlane MD LAB - CHEMISTRY ORDERABLES Fi nal Result Performing Organization Address City/[facility]/ZIP Co de Phone Number [address] [address], [facility] [phone] * LACTIC ACID BLOOD REFLEX TO REPEAT (10/28/2024 2:31 AM CDT) Only the most recent of5 resultswithin the time period is included. Lactic Acid-Stat 1.9 <=2.0 mmol/L 10/28/2024 3:06 AM CDT [facility] Blood BLOOD SPECIMEN / Unknown Venipuncture / Unknown 10/28/2024 2:31 AM CDT 10/28/2024 2:37 AM CDT us Savanna Mcfarlane MD LAB - CHEMISTRY ORDERABLES Fi nal Result Performing Organization Address City/[facility]/ZIP Co de Phone Number [address] [address], [place] [phone] * XR Chest 2Vw (10/27/2024 11:58 PM CDT) Only the most recent of4 resultswithin the time period is included. Anatomical Region Laterality Modality Chest Digital Radiogra phy 10/28/2024 12:0 2 AM CDT Narrative 10/28/2024 3:32 AM CDT PROCEDURE: XR CHEST 2VW, DATE/TIME OF EXAM: 10/27/2024 11:58 PM, LOCATION [facility] INDICATION: R07.9: Chest pain, unspecified type ADDITIONAL [...] Jha MD, (manager residential). > Dictated by Card Scraper I, Blake Plasencia MD have personally reviewed and interpreted this examination/study. > Interpreting Provider: Blake Plasencia MD on 10/28/2024 3:32 AM Procedure Note Blake Plasencia MD - 10/28/2024 PROCEDURE: XR CHEST 2VW, DATE/TIME OF EXAM: 10/27/2024 11:58 PM, LOCATION [facility] INDICATION: R07.9: Chest pain, unspecified type ADDITIONAL [...] Jha MD, (manager residential). > Dictated by Card Scraper I, Blake Plasencia MD have personally reviewed and interpreted this examination/study. > Interpreting Provider: Blake Plasencia MD on 10/28/2024 3:32 AM Savanna Mcfarlane MD DIAGNOSTIC IMAGING ORDERABLES Final Result * (ABNORMAL) TROPONIN-I HIGH SENSITIVE BASELINE + 1HR (10/27/2024 11:53 PM CDT) Only the most recent of8 resultswithin the time period is included. [facility] Troponin I High Sensitive 72(H) <=35 ng/L 10/28/2024 12:49 AM [facility] Blood BLOOD SPECIMEN / Unknown Venipuncture / Unknown 10/27/2024 11:53 PM CDT 10/28/2024 12:12 AM CDT Savanna Mcfarlane MD LAB - CHEMISTRY ORDERABLES Fi nal Result [facility] [address] [place] [address], [facility] [phone] * (ABNORMAL) CBC W AUTO DIFFERENTIAL (10/27/2024 11:53 PM CDT) Only the most recent of11 resultswithin the time period is included. [facility] WBC 7.8 4.0 - 10.7 x10E9/L 10/28/2024 12:26 AM [facility] RBC Count 3.31(L) 4.30 - 5.80 x10E12/L 10/28/2024 12:26 AM [facility] Hemoglobin 9.0(L) 13.3 - 17.5 g/dL 10/28/2024 12:26 AM [facility] Hematocrit 27.9(L) 38.7 - 51.1 % 10/28/2024 12:26 AM [facility] MCV 84.3 80.0 - 98.0 fL 10/28/2024 12:26 AM [facility] MCH 27.2 26.7 - 33.6 pg 10/28/2024 12:26 AM [facility] MCHC 32.3 31.7 - 36.3 g/dL 10/28/2024 12:26 AM [facility] RDW-CV 15.9(H) 11.3 - 14.8 % 10/28/2024 12:26 AM [facility] Platelet Count 187 150 - 420 x10E9/L 10/28/2024 12:26 AM [facility] MPV 10.2 7.8 - 11.4 fL 10/28/2024 12:26 AM [facility] Neutrophil % 67.0 41.0 - 74.0 % 10/28/2024 12:26 AM [facility] Lymphocyte % 16.4(L) 17.0 - 47.0 % 10/28/2024 12:26 AM [facility] Monocyte % 14.0(H) 3.0 - 11.0 % 10/28/2024 12:26 AM [facility] Eosinophil % 1.9 0.0 - 7.0 % 10/28/2024 12:26 AM [facility] Basophil % 0.1 0.0 - 1.6 % 10/28/2024 12:26 AM [facility] Immature Granulocytes % 0.6 0.0 - 1.0 % 10/28/2024 12:26 AM [facility] Neutrophil Absolute 5.23 1.60 - 7.50 x10E9/L 10/28/2024 12:26 AM [facility] Lymphocyte Absolute 1.28 1.00 - 4.40 x10E9/L 10/28/2024 12:26 AM [facility] Monocyte Absolute 1.09(H) 0.15 - 1.00 x10E9/L 10/28/2024 12:26 AM [facility] Eosinophil Absolute 0.15 0.00 - 0.60 x10E9/L 10/28/2024 12:26 AM [facility] Basophil Absolute 0.01 0.00 - 0.13 x10E9/L 10/28/2024 12:26 AM [facility] Blood BLOOD SPECIMEN / Unknown Venipuncture / Unknown 10/27/2024 11:53 PM CDT 10/28/2024 12:13 AM CDT us Savanna Mcfarlane MD LAB - HEMATOLOGY ORDERABLES F inal Result [facility] [address] [place] [address], [facility] [phone] * (ABNORMAL) COMPREHENSIVE METABOLIC PANEL (10/27/2024 11:53 PM [facility]) Only the most recent of13 resultswithin the time period is included. BUN 34(H) 7 - 26 mg/dL 10/28/2024 12:45 AM [facility] Creatinine 7.86(H) 0.71 - 1.16 mg/dL 10/28/2024 12:45 AM [facility] Sodium 132(L) 136 - 145 mmol/L 10/28/2024 12:45 AM [facility] Potassium 3.5 3.5 - 4.5 mmol/L 10/28/2024 12:45 AM [facility] Chloride 95(L) 98 - 107 mmol/L 10/28/2024 12:45 AM [facility] CO2 25 22 - 29 mmol/L 10/28/2024 12:45 AM [facility] Glucose 104(H) 70 - 99 mg/dL 10/28/2024 12:45 AM [facility] Calcium 8.5 8.4 - 10.2 mg/dL 10/28/2024 12:45 AM [facility] Protein Total 5.6(L) 6.0 - 8.3 g/dL 10/28/2024 12:45 AM [facility] Albumin 2.2(L) 3.4 - 5.0 g/dL 10/28/2024 12:45 AM [facility] Bilirubin Total 0.3 0.2 - 1.2 mg/dL 10/28/2024 12:45 AM [facility] Alkaline Phosphatase 104 40 - 150 U/L 10/28/2024 12:45 AM [facility] ALT 56(H) 5 - 55 U/L 10/28/2024 12:45 AM [facility] AST 48(H) 5 - 34 U/L 10/28/2024 12:45 AM [facility] Anion Gap 12 6 - 16 10/28/2024 12:45 AM [facility] BUN/Creatinine Ratio 4(L) 7 - 23 10/28/2024 12:45 AM [facility] Osmolality Calculated 282 275 - 295 mOsm/kg 10/28/2024 12:45 AM [facility] Albumin/Globulin Ratio 0.6(L) 1.1 - 2.3 10/28/2024 12:45 AM [facility] eGFR by CKD-EPI 7(L) >=90 mL/min/1.7 3 m2 10/28/2024 12:45 AM [facility] Comment:Estimated Glomerular Filtration Rate (eGFR) calculated using the CKD-EPI Creatinine Equation (2020), per the National Kidney Foundation and [place] Society of Nephrology recommendations. Blood BLOOD SPECIMEN / Unknown Venipuncture / Unknown 10/27/2024 11:53 PM CDT 10/28/2024 12:12 AM CDT Savanna Mcfarlane MD LAB - CHEMISTRY ORDERABLES Fi nal Result Performing Organization Address City/[facility]/ZIP Co de Phone Number [address] [address], [place] [phone] * LIPASE BLOOD (10/27/2024 11:53 PM CDT) Only the most recent of3 resultswithin the time period is included. Lipase 41 8 - 78 U/L 10/28/2024 12:45 AM T [facility] Blood BLOOD SPECIMEN / Unknown Venipuncture / Unknown 10/27/2024 11:53 PM CDT 10/28/2024 12:12 AM CDT Narrative [facility] - 10/28/2024 12:45 AM CDT Lipase results from the Matthew Alinity analyzer may not be comparable with other methodologies. Savanna Mcfarlane MD LAB - CHEMISTRY ORDERABLES Fi nal Result Performing Organization Address City/[facility]/ZIP Co de Phone Number [address] [address], [place] [phone] * (ABNORMAL) PTH INTACT ([facility]) (10/21/2024 1:11 PM CDT) Only the most recent of2 resultswithin the time period is included. PTH Intact 316.8(H) 8.0 - 77.0 pg/mL 10/21/2024 1:56 PM CDT [facility] Blood BLOOD SPECIMEN / Unknown Lab Venipuncture / Unknown 10/21/2024 1:11 PM CDT 10/21/2024 1:23 PM CDT Becky Wilson MD LAB - CHEMISTRY ORDERABLES Fin al Result [address] [address], [facility] [phone] * LAB MISC TEST (10/21/2024 1:11 PM CDT) Test Name PHOSPHO-TAU 217 PLASMA 10/25/2024 12:29 PM CDT [facility] Test Result See Scanned Report 10/25/2024 12:29 PM CDT [facility] Comment Ref Lab [place] 10/25/2024 12:29 PM CDT [facility] Blood BLOOD SPECIMEN / Unknown Lab Venipuncture / Unknown 10/21/2024 1:11 PM CDT 10/21/2024 1:15 PM CDT Becky Wilson MD LAB SEND OUT Final Result [facility] [address] [place] [address] * MAGNESIUM BLOOD (10/21/2024 1:11 PM CDT) Only the most recent of14 resultswithin the time period is included. Magnesium 1.6 1.6 - 2.6 mg/dL 10/21/2024 1:49 PM CDT [facility] Blood BLOOD SPECIMEN / Unknown Lab Venipuncture / Unknown 10/21/2024 1:11 PM CDT 10/21/2024 1:20 PM CDT Becky Wilson MD LAB - CHEMISTRY ORDERABLES Fin al Result Performing Organization Address City/[facility]/ZIP Co de Phone Number [address] [address], [facility] [phone] * AMMONIA (10/21/2024 1:11 PM CDT) Ammonia 30 <=72 umol/L 10/21/2024 1:32 PM CDT [facility] Blood BLOOD SPECIMEN / Unknown Lab Venipuncture / Unknown 10/21/2024 1:11 PM CDT 10/21/2024 1:15 PM CDT Becky Wilson MD LAB - CHEMISTRY ORDERABLES Fin al Result Performing Organization Address [facility] Co de Phone Number [address] [address], [facility] [phone] * CT Head Wo Contrast (10/19/2024 3:03 PM CDT) Only the most recent of4 resultswithin the time period is included. Anatomical Region Laterality Modality Head Computed Tomogra phy 10/19/2024 3:11 PM CDT Impressions 10/19/2024 3:41 PM CDT IMPRESSION: 1.No acute intracranial hemorrhage, territorial infarct, or significant mass effect. Report dictated by Saroj Linda MD, MD (manager residential). > Dictated by Card Scraper I, Raymundo Hanson MD have personally reviewed [...] MD, MD (manager residential). > Dictated by Card Scraper I, Raymundo Hanson MD have personally reviewed and interpreted this examination/study. > Interpreting Provider: Raymundo Hanson MD on 10/19/2024 3:41 PM Alfreda Smith PA-C CT ORDERABLES Final Result * EKG 12-LEAD (10/19/2024 2:21 PM CDT) Only the most recent of6 resultswithin the time period is included. Ventricular Rate 64 BPM [facility] MUSE Atrial Rate 64 BPM [facility] MUSE P-R Interval 146 ms H MUSE QRS Duration ms 96 ms H MUSE Q-T Interval ms 494 ms [facility] MUSE QTC Calculation (Bezet) 509 ms [facility] MUSE Calculated P Norton 69 degrees [facility] MUSE Calculated R Norton -63 degrees [facility] MUSE Calculated T Norton -90 degrees [facility] MUSE Interpretation EKG NORMAL SINUS RHYTHM LEFT ANTERIOR FASCICULAR BLOCK T WAVE ABNORMALITY, CONSIDER INFEROLATERAL ISCHEMIA PROLONGED QT ABNORMAL ECG . Confirmed by DOUG CAGLE MD ([id number]) on 10/23/2024 11:38:28 PM [facility] MUSE 10/19/2024 2:21 PM CDT 10/23/2024 11:38 PM CDT Alfreda Smith PA-C ECG ORDERABLES Edite d Result - Final [facility] MUSE * (ABNORMAL) B-TYPE NATRIURETIC PEPTIDE (10/17/2024 7:33 PM CDT) Only the most recent of3 resultswithin the time period is included. BNP 471(H) <100 pg/mL 10/17/2024 10:07 PM CDT [facility] Comment: A decision threshold of [...] LAB - CHEMISTRY ORDERABLES Fi nal Result [facility] [address] [place] [address], [facility] [phone] * XR CHEST 1VW PORTABLE (10/09/2024 7:27 PM CDT) Only the most recent of2 resultswithin the time period is included. Anatomical Region Laterality Modality Chest Digital Radiogra phy 10/09/2024 10:4 9 PM CDT Narrative 10/10/2024 1:17 AM CDT PROCEDURE: XR CHEST 1VW PORTABLE, DATE/TIME OF EXAM: 10/09/2024 7:27 PM, LOCATION [facility] INDICATION: R06.02: Short of breath on exertion ADDITIONAL CLINICAL INFORMATION: Ordering Provider Reason For Exam: r/o effusion, pneumonia Technologist Note: Additional: COMPARISON: Chest x-ray from 10/07/2024. FINDINGS/IMPRESSION: There is no focal consolidation, pleural effusion, or pneumothorax.The cardiomediastinal silhouette is normal. No displaced fractures identified. Hardware projecting over thoracic spine. > Dictated by Otis Bocanegra MD (manager residential). > Dictated by Card Scraper I, Blake Plasencia MD have personally reviewed and interpreted this examination/study. > Interpreting Provider: Blake Plasencia MD on 10/10/2024 1:17 AM Procedure Note Blake Plasencia MD - 10/10/2024 PROCEDURE: XR CHEST 1VW PORTABLE, DATE/TIME OF EXAM: 10/09/2024 7:27PM, LOCATION [facility] INDICATION: R06.02: Short of breath on exertion ADDITIONAL CLINICAL INFORMATION: Ordering Provider Reason For Exam: r/o effusion, pneumonia Technologist Note: Additional: COMPARISON: Chest x-ray from 10/07/2024. FINDINGS/IMPRESSION: There is no focal consolidation, pleural effusion, or pneumothorax.The cardiomediastinal silhouette is normal. No displaced fracturesidentified. Hardware projecting over thoracic spine. > Dictated by Otis Bocanegra MD (manager residential). > Dictated by Card Scraper I, Blake Plasencia MD have personally reviewed and interpreted this examination/study. > Interpreting Provider: Blake Plasencia MD on 10/10/2024 1:17 AM us Anjali Avelar CERTIFIED NUCLEAR MEDICINE TECHNOLOGIST-MOTOR VEHICLE SALESPERSON DIAGNOSTIC IMAGING O RDERABLES Final Result * (ABNORMAL) BLOOD GASES ABBEY + COOX PANEL (10/09/2024 4:39 PM CDT) Only the most recent of2 resultswithin the time period is included. pH Venous 7.41 7.32 - 7.42 pH 10/09/2024 5:04 PM [facility] pO2 Venous 34(L) 35 - 40 mmHg 10/09/2024 5:04 PM [facility] pCO2 Venous 44 40 - 50 mmHg 10/09/2024 5:04 PM [facility] HCO3 Venous 27.9 20 - 30 mmol/L 10/09/2024 5:04 PM [facility] Base Excess Venous 2.9(H) -2.0 - 2.0 mmol/L 10/09/2024 5:04 PM [facility] Oxyhemoglobin Venous 56.8 % 09/18 5:04 PM [facility] Comment:A^Absorbance Error Deoxyhemoglobin (HHB) Venous % 42.6 % 10/09/2024 5:04 PM [facility] Comment:A^Absorbance Error Methemoglobin <0.8 0.0 - 2.0 % 10/09/2024 5:04 PM [facility] Comment:A^Absorbance Error Carboxyhemoglobin 0.6 0.0 - 2.0 % 2024 5:04 PM [facility] Comment:A^Absorbance Error O2 Content Venous 7.7 Interpret within clinical context ml/dL 10/09/2024 5:04 PM CDT [facility] Hemoglobin by COOX 9.6(L) 12.0 - 17.6 g/dL 10/09/2024 5:04 PM CDT [facility] Comment:A^Absorbance Error O2 Saturation Venous 57(L) >=70 % 09/18 5:04 PM CDT [facility] Comment:A^Absorbance Error FI O2 Mixed Venous 21.0 % 2024 5:04 PM CDT [facility] Blood BLOOD SPECIMEN / Unknown Venipuncture / Unknown 10/09/2024 4:39 PM CDT 10/09/2024 4:56 PM CDT Narrative [facility] - 10/09/2024 5:04 PM CDT Carboxyhemoglobin Normal Concentration: Non-smokers: 0-2%; Smokers: 0-9%; Toxic: >20% [facility] - BLOOD GASES OR DERABLES Final Result [address] [address], [place] [phone] * PHOSPHORUS BLOOD (10/09/2024 4:39 PM CDT) Only the most recent of8 resultswithin the time period is included. Phosphorus 4.9 2.8 - 5.1 mg/dL 10/09/2024 5:29 PM CDT [facility] Blood BLOOD SPECIMEN / Unknown Venipuncture / Unknown 10/09/2024 4:39 PM CDT 10/09/2024 4:58 PM CDT [facility] - CHEMISTRY ORDE RABLES Final Result [address] [address], [place] [phone] * (ABNORMAL) GLUCOSE - POINT OF CARE (10/09/2024 4:26 PM CDT) Only the most recent of55 resultswithin the time period is included. Glucose WB/POC 115(H) 70 - 99 mg/dL 10/09/2024 4:30 PM [facility] Specimen Type Arterial/C apillary 10/09/2024 4:30 PM [facility] Blood BLOOD SPECIMEN / Unknown 10/09/2024 4:26 PM CDT 10/09/2024 4:30 PM CDT us Provider Unknown LAB - POINT OF CARE ORDERABLES Final Result [facility] [address] [place] [address], [facility] [phone] * (ABNORMAL) URINALYSIS REFLEX MICROSCOPIC REFLEX CULTURE (10/07/2024 6:16 PM CDT) Color UA Yellow Yellow, Straw 10/07/2024 6:39 PM [facility] Clarity UA Ex. Turbid(A) Clear 10/07/2024 6:39 PM [facility] Glucose UA Normal Normal 10/07/2024 6:39 PM [facility] Bilirubin UA Negative Negative 10/07/2024 6:39 PM [facility] Ketone UA Negative Negative 10/07/2024 6:39 PM [facility] Specific [place] UA 1.015 1.005 - 1.030 10/07/2024 6:39 PM [facility] Blood UA 3+(A) Negative 10/07/2024 6:39 PM [facility] pH UA 6.0 5.0 - 8.0 10/07/2024 6:39 PM [facility] Protein UA 2+(A) Negative 10/07/2024 6:39 PM [facility] Urobilinogen UA Normal Normal mg/dL 10/07/2024 6:39 PM [facility] Nitrite UA Negative Negative 10/07/2024 6:39 PM [facility] Leukocyte Esterase UA 500 MOLLY/uL(A) Negative 10/07/2024 6:39 PM [facility] RBC UA 51-100(A) 0 - 5 # /hpf 10/07/2024 6:39 PM CDT [facility] WBC UA >100(A) 0 - 5 # /hpf 10/07/2024 6:39 PM CDT [facility] Bacteria UA 2+(A) None Seen 10/07/2024 6:39 PM CDT [facility] Squamous Epithelial Cells None Seen 0 - 5 /hpf 10/07/2024 6:39 PM CDT [facility] Transitional Epithelial Cell UA 0-2(A) None Seen /HPF 10/07/2024 6:39 PM CDT [facility] Budding Yeast Moderate(A) None seen /hpf 10/07/2024 6:39 PM CDT [facility] Reflex Status Culture to follow 10/07/2024 6:39 PM CDT [facility] Urine URINE SPECIMEN OBTAINED VIA [employer]WELLING URINARY CATHETER / Unknown Collection / Unknown 10/07/2024 6:16 PM CDT 10/07/2024 6:19 PM CDT Narrative [facility] - 10/07/2024 6:39 PM CDT Richard Sylvester MD LAB - URINALYSIS ORDERABLES Kenna l Result [facility] [address] [place] [address], [facility] [phone] * (ABNORMAL) CULTURE URINE (10/07/2024 6:16 PM CDT) Culture Urine 50,000-100,000 CFU/mL Klebsiella pneumoniae(A) MUSHTAQ 10/09/2024 5:54 AM CDT [facility] Urine URINE SPECIMEN OBTAINED VIA [employer]WELLING URINARY CATHETER / Unknown Collection / Unknown 10/07/2024 6:16 PM CDT 10/07/2024 6:19 PM CDT Narrative [facility] - 10/09/2024 5:54 AM CDT [...] LAB - MICROBIOLOGY ORDERABLES Fi nal Result [facility] [address] [place] [address], [facility] [phone] * VAS Arterial Multilevel Le (10/05/2024 12:24 PM CDT) Anatomical Region Laterality Modality Intravascular Ul trasound 10/05/2024 11:3 4 AM CDT Narrative Procedure Note Elroy Holcomb MD - 10/05/2024 Guy Messina MD VASCULAR LAB ORDERABLES Edit ed Result - Final * (ABNORMAL) HEMOGLOBIN A1C (09/25/2024 5:06 AM CDT) Hemoglobin A1c 5.8(H) <=5.6 % 09/25/2024 8:19 AM [facility] Estimated Average Glucose 120 mg/dL 09/25/2024 8:19 AM [facility] Comment: HbA1c Interpretation: Normal : < 5.7% Pre-diabetes: 5.7-6.4% Diabetes: Equal to or greater than 6.5% Test results diagnostic of diabetes should be repeated for confirmation. Treatment target values recommended by ADA and other clinical organizations should be used to evaluate metabolic control in patients. Reference: [place] [employer], Standards of Care in Diabetes [...] LAB - CHEMISTRY ORDERABLES F inal Result [address] [id number], [facility] [phone] * (ABNORMAL) RENAL FUNCTION PANEL (09/24/2024 7:53 PM CDT) Only the most recent of3 resultswithin the time period is included. BUN 42(H) 7 - 26 mg/dL 09/24/2024 8:47 PM [facility] Creatinine 12.22(H) 0.71 - 1.16 mg/dL 09/24/2024 8:47 PM [facility] Sodium 136 136 - 145 mmol/L 09/24/2024 8:47 PM [facility] Potassium 3.9 3.5 - 4.5 mmol/L 09/24/2024 8:47 PM [facility] Chloride 97(L) 98 - 107 mmol/L 09/24/2024 8:47 PM [facility] CO2 24 22 - 29 mmol/L 09/24/2024 8:47 PM [facility] Glucose 93 70 - 99 mg/dL 09/24/2024 8:47 PM [facility] Albumin 1.8(L) 3.4 - 5.0 g/dL 09/24/2024 8:47 PM [facility] Calcium 8.4 8.4 - 10.2 mg/dL 09/24/2024 8:47 PM [facility] Phosphorus 7.0(H) 2.8 - 5.1 mg/dL 09/24/2024 8:47 PM [facility] Anion Gap 15 6 - 16 09/24/2024 8:47 PM [facility] BUN/Creatinine Ratio 3(L) 7 - 23 09/24/2024 8:47 PM [facility] Osmolality Calculated 292 275 - 295 mOsm/kg 09/24/2024 8:47 PM [facility] eGFR by CKD-EPI 4(L) >=90 mL/min/1.7 3 m2 09/24/2024 8:47 PM [facility] Comment:Estimated Glomerular Filtration Rate (eGFR) calculated using the CKD-EPI Creatinine Equation (2020), per the National Kidney Foundation and [place] [employer] Neph[employer] recommendations. Blood BLOOD SPECIMEN / Unknown Lab Venipuncture / Unknown 09/24/2024 7:53 PM CDT 09/24/2024 8:15 PM CDT us Guy Messina MD LAB - CHEMISTRY ORDERABLES F inal Result [facility] [address] [place] [address], [facility] [phone] * TSH REFLEX FREE T4 (09/24/2024 12:02 PM CDT) TSH 1.567 0.350 - 4.940 uIU/mL 09/24/2024 12:57 PM T [facility] Blood BLOOD SPECIMEN / Unknown 09/24/2024 12:02 PM CDT 09/24/2024 12:18 PM CDT us Alexis Rodrigez III, MD LAB - CHEMISTRY ORDERAB LES Final Result Performing Organization Address City/[facility]/ZIP Co de Phone Number [address] [address], [facility] [phone] * (ABNORMAL) VITAMIN B1 (09/24/2024 12:02 PM CDT) Vitamin B1 Whole Blood 205(H) 70 - 180 nmol/L 09/27/2024 7:16 PM CDT [facility] Comment: INTERPRETIVE INFORMATION: Vitamin B1, Whole Blood This assay measures the concentration of thiamine diphosphate (TDP), the primary active form of vitamin B1. Approximately 90 percent of vitamin B1 present in whole blood is TDP. Thiamine and thiamine monophosphate, which comprise the remaining 10 percent, are not measured. This test was developed and its performance characteristics determined by [facility]. It has not been cleared or approved by the [place] Food and Drug Administration. This test was performed in a CLIA certified laboratory and is intended for clinical purposes. Performed By: [facility] [address] [place] [address] Shot Peen Operator: Mk Egan MD, PhD CLIA Number: [id number] Blood BLOOD SPECIMEN / Unknown 09/24/2024 12:02 PM CDT 09/24/2024 12:11 PM CDT us Alexis Rodrigez III, MD LAB - CHEMISTRY ORDERAB LES Final Result Performing Organization Address City/[facility] Co de Phone Number [facility]) [address] [place] [address] * (ABNORMAL) VITAMIN B12 (09/24/2024 12:02 PM CDT) Vitamin B12 1,151(H) 213 - 816 pg/mL 09/24/2024 12:57 PM CDT [facility] Blood BLOOD SPECIMEN / Unknown 09/24/2024 12:02 PM CDT 09/24/2024 12:18 PM CDT Alexis Rodrigez III, MD LAB - CHEMISTRY ORDERAB LES Final Result Performing Organization Address City/[facility]/ZIP Co de Phone Number [address] [address], [facility] [phone] * (ABNORMAL) TROPONIN-I HIGH SENSITIVE (09/24/2024 5:08 AM CDT) Troponin I High Sensitive 83(H) <=35 ng/L 09/24/2024 6:10 AM CDT [facility] Blood BLOOD SPECIMEN / Unknown Lab Venipuncture / Unknown 09/24/2024 5:08 AM CDT 09/24/2024 5:28 AM CDT us Jennifer Winn MD LAB - CHEMISTRY ORDERABLES F inal Result Performing Organization Address [facility]/ZIP Co de Phone Number [address] [address], [facility] [phone] * CT Lumbar Spine Wo Contrast (09/23/2024 [...] residential) 09/23/2024 5:45 PM. > Dictated by Card Scraper I, Jana Clark MD have personally reviewed and interpreted this examination/study. > Interpreting Provider: Jana Clark MD on 09/23/2024 6:29 PM Narrative 09/23/2024 6:29 PM CDT PROCEDURE: CT HEAD WO CONTRAST, CT LUMBAR SPINE WO CONTRAST, CT THORACIC SPINE WO CONTRAST, CT CERVICAL SPINE WO CONTRAST, DATE/TIME OF EXAM: 09/23/2024 5:32 PM, LOCATION [facility] INDICATION: W19.XXXA: Fall, initial encounter R41.82: Altered mental status, unspecified altered mental status type ADDITIONAL CLINICAL INFORMATION: Ordering Provider Reason For Exam: r/o bleed, fx (accession [id number]), r/o fx (accession [id number]), r/o fx (accession [id number]), r/o fx (accession [id number]) Technologist Note: None. Additional: 69 year old [...] DATE/TIME OF EXAM: 09/23/2024 5:32 PM, LOCATION [facility] INDICATION: W19.XXXA: Fall, initial encounter R41.82: Altered mental status, unspecified altered mental status type ADDITIONAL CLINICAL INFORMATION: Ordering Provider Reason For Exam: r/o bleed, fx (accession [id number]), r/o fx (accession [id number]), r/o fx (accession [id number]), r/o fx (accession [id number]) Technologist Note: None. Additional: 69 year old [...] residential) 09/23/2024 5:45 PM. > Dictated by Card Scraper I, Jana Clark MD have personally reviewed [...] residential) 09/23/2024 5:45 PM. > Dictated by Card Scraper I, Jana Clark MD have personally reviewed and interpreted this examination/study. > Interpreting Provider: Jana Clark MD on 09/23/2024 6:29 PM Narrative 09/23/2024 6:29 PM CDT PROCEDURE: CT HEAD WO CONTRAST, CT LUMBAR SPINE WO CONTRAST, CT THORACIC SPINE WO CONTRAST, CT CERVICAL SPINE WO CONTRAST, DATE/TIME OF EXAM: 09/23/2024 5:32 PM, LOCATION [facility] INDICATION: W19.XXXA: Fall, initial encounter R41.82: Altered mental status, unspecified altered mental status type ADDITIONAL CLINICAL INFORMATION: Ordering Provider Reason For Exam: r/o bleed, fx (accession [id number]), r/o fx (accession [id number]), r/o fx (accession [id number]), r/o fx (accession [id number]) Technologist Note: None. Additional: 69 year old [...] DATE/TIME OF EXAM: 09/23/2024 5:32 PM, LOCATION [facility] INDICATION: W19.XXXA: Fall, initial encounter R41.82: Altered mental status, unspecified altered mental status type ADDITIONAL CLINICAL INFORMATION: Ordering Provider Reason For Exam: r/o bleed, fx (accession [id number]), r/o fx (accession [id number]), r/o fx (accession [id number]), r/o fx (accession [id number]) Technologist Note: None. Additional: 69 year old [...] residential) 09/23/2024 5:45 PM. > Dictated by Card Scraper IJana MD have personally reviewed and interpretedthis [...] residential) 09/23/2024 5:45 PM. > Dictated by Card Scraper Jana Leigh MD have personally reviewed and interpreted this examination/study. > Interpreting Provider: Jana Clark MD on 09/23/2024 6:29 PM Narrative 09/23/2024 6:29 PM CDT PROCEDURE: CT HEAD WO CONTRAST, CT LUMBAR SPINE WO CONTRAST, CT THORACIC SPINE WO CONTRAST, CT CERVICAL SPINE WO CONTRAST, DATE/TIME OF EXAM: 09/23/2024 5:32 PM, LOCATION [facility] INDICATION: W19.XXXA: Fall, initial encounter R41.82: Altered mental status, unspecified altered mental status type ADDITIONAL CLINICAL INFORMATION: Ordering Provider Reason For Exam: r/o bleed, fx (accession [id number]), r/o fx (accession [id number]), r/o fx (accession [id number]), r/o fx (accession [id number]) Technologist Note: None. Additional: 69 year old [...] DATE/TIME OF EXAM: 09/23/2024 5:32 PM, LOCATION [facility] INDICATION: W19.XXXA: Fall, initial encounter R41.82: Altered mental status, unspecified altered mental status type ADDITIONAL CLINICAL INFORMATION: Ordering Provider Reason For Exam: r/o bleed, fx (accession [id number]), r/o fx (accession [id number]), r/o fx (accession [id number]), r/o fx (accession [id number]) Technologist Note: None. Additional: 69 year old [...] residential) 09/23/2024 5:45 PM. > Dictated by Card Scraper I, Jana Clark MD have personally reviewed [...] Jha MD, (manager residential). > Dictated by Card Scraper I, Nicole Bernabe MD have personally reviewed and interpreted this examination/study. > Interpreting Provider: Nicole Bernabe MD on 09/24/2024 9:17 AM Narrative 09/24/2024 9:17 AM CDT PROCEDURE: XR FOOT LEFT 3VW OR MORE, DATE/TIME OF EXAM: 09/23/2024 5:34 PM, LOCATION [facility] INDICATION: W19.XXXA: Fall, initial encounter ADDITIONAL CLINICAL [...] MORE, DATE/TIME OF EXAM: 09/23/2024 5:34PM, LOCATION [facility] INDICATION: W19.XXXA: Fall, initial encounter ADDITIONAL CLINICAL [...] Jha MD, (manager residential). > Dictated by Card Scraper I, Nicole Bernabe MD have personally reviewed and interpreted this examination/study. > Interpreting Provider: Nicole Bernabe MD on 09/24/2024 9:17 AM us Moon Lewis PA-C DIAGNOSTIC IMAGING ORDERABLES F inal Result * (ABNORMAL) C-REACTIVE PROTEIN (09/23/2024 4:52 PM CDT) Only the most recent of2 resultswithin the time period is included. C-Reactive Protein 1.6(H) <=0.5 mg/dL 09/23/2024 5:42 PM CDT [facility] Blood BLOOD SPECIMEN / Unknown Venipuncture / Unknown 09/23/2024 4:52 PM CDT 09/23/2024 4:56 PM CDT us Moon Lewis PA-C LAB - CHEMISTRY ORDERABLES Kenna l Result [facility] [address] [place] [address], [facility] [phone] * (ABNORMAL) ERYTHROCYTE SEDIMENTATION RATE (09/23/2024 4:52 PM CDT) Only the most recent of2 resultswithin the time period is included. Erythrocyte Sedimentation Rate Westergren 116(H) 0 - 20 MM/HR 09/23/2024 5:21 PM CDT [facility] Blood BLOOD SPECIMEN / Unknown Venipuncture / Unknown 09/23/2024 4:52 PM CDT 09/23/2024 5:05 PM CDT Moon Lewis PA-C LAB - HEMATOLOGY ORDERABLES Fin al Result [facility] [address] [place] [address], [facility] [phone] * (ABNORMAL) DIFFERENTIAL MANUAL (09/23/2024 4:52 PM CDT) Only the most recent of3 resultswithin the time period is included. Neutrophil % 78(H) 41 - 74 % 09/23/2024 5:33 PM CDT [facility] Lymphocyte % 10(L) 17 - 47 % 09/23/2024 5:33 PM CDT [facility] Monocyte % 10 3 - 11 % 09/23/2024 5:33 PM CDT [facility] Eosinophil % 1 0 - 7 % 09/23/2024 5:33 PM CDT [facility] Metamyelocyte % 1(H) 0% % 5:33 PM CDT [facility] Neutrophil Absolute 8.66(H) 1.60 - 7.50 x10E9/L 09/23/2024 5:33 PM CDT [facility] Lymphocyte Absolute 1.11 1.00 - 4.40 x10E9/L 09/23/2024 5:33 PM CDT [facility] Monocyte Absolute 1.11(H) 0.15 - 1.00 x10E9/L 09/23/2024 5:33 PM CDT [facility] Eosinophil Absolute 0.11 0.00 - 0.60 x10E9/L 09/23/2024 5:33 PM T [facility] RBC Morphology REVIEWED 09/23/2024 5:33 PM CDT [facility] Microcytosis MODERATE(A) (none) 09/23/2024 5:33 PM T [facility] Blood BLOOD SPECIMEN / Unknown Venipuncture / Unknown 09/23/2024 4:52 PM CDT 09/23/2024 5:05 PM CDT Moon Lewis PA-C LAB - HEMATOLOGY ORDERABLES Fin al Result Performing Organization Address City/[facility]/ZIP Co de Phone Number [place] [id number] [place] [address], [facility] [phone] * (ABNORMAL) CBC W/O DIFFERENTIAL (09/16/2024 1:01 AM CDT) Only the most recent of10 resultswithin the time period is included. WBC 9.3 4.0 - 10.7 x10E9/L 09/16/2024 1:43 AM [facility] RBC Count 3.37(L) 4.30 - 5.80 x10E12/L 09/16/2024 1:43 AM [facility] Hemoglobin 9.5(L) 13.3 - 17.5 g/dL 09/16/2024 1:43 AM [facility] Hematocrit 28.3(L) 38.7 - 51.1 % 09/16/2024 1:43 AM [facility] MCV 84.0 80.0 - 98.0 fL 09/16/2024 1:43 AM [facility] MCH 28.2 26.7 - 33.6 pg 09/16/2024 1:43 AM [facility] MCHC 33.6 31.7 - 36.3 g/dL 09/16/2024 1:43 AM [facility] RDW-CV 15.7(H) 11.3 - 14.8 % 09/16/2024 1:43 AM [facility] Platelet Count 205 150 - 420 x10E9/L 09/16/2024 1:43 AM [facility] MPV 10.3 7.8 - 11.4 fL 09/16/2024 1:43 AM [facility] Blood BLOOD SPECIMEN / Unknown Lab Venipuncture / Unknown 09/16/2024 1:01 AM CDT 09/16/2024 1:40 AM T us Alexis Rodrigez III, MD LAB - HEMATOLOGY ORDERA BLES Final Result Performing Organization Address City/[facility]/ZIP Co de Phone Number [address] [address], [facility] [phone] * VANCOMYCIN LEVEL RANDOM (09/15/2024 4:10 PM CDT) Only the most recent of3 resultswithin the time period is included. Pathologist [facility] Vancomycin Random 31.2 Therapeutic Ranges not established for random specimens ug/mL 09/15/2024 6:00 PM CDT [facility] Blood BLOOD SPECIMEN / Unknown Lab Venipuncture / Unknown 09/15/2024 4:10 PM CDT 09/15/2024 4:51 PM CDT Narrative [facility] - 09/15/2024 6:00 PM CDT See institution protocol. us Aureliano Pierce MD LAB - CHEMISTRY ORDERAB LES Final Result [address] [address], [facility] [phone] * LACTIC ACID BLOOD (09/14/2024 3:32 PM CDT) Only the most recent of4 resultswithin the time period is included. [facility] Lactic Acid-Stat 2.0 <=2.0 mmol/L 09/14/2024 4:17 PM CDT [facility] Blood BLOOD SPECIMEN / Unknown Lab Venipuncture / Unknown 09/14/2024 3:32 PM CDT 09/14/2024 3:51 PM CDT us Alexis Rodrigez III, MD LAB - CHEMISTRY ORDERAB LES Final Result [address] [address], [facility] [phone] * (ABNORMAL) HGB HCT PANEL (09/14/2024 1:24 PM CDT) Only the most recent of2 resultswithin the time period is included. [facility] Hemoglobin 8.7(L) 13.3 - 17.5 g/dL 09/14/2024 1:41 PM CDT [facility] Hematocrit 25.6(L) 38.7 - 51.1 % 09/14/2024 1:41 PM CDT [facility] Blood BLOOD SPECIMEN / Unknown Venipuncture / Unknown 09/14/2024 1:24 PM CDT 09/14/2024 1:30 PM CDT us Alexis Rodrigez III, MD LAB - HEMATOLOGY ORDERA BLES Final Result [facility] [address] [place] [address], [facility] [phone] * PATHOLOGY TISSUE (09/14/2024 11:45 AM CDT) Case Report Surgical Pathology Report Case: [id number] Authorizing Provider: Elroy Holcomb MD Collected: 09/14/2024 11:45 AM Ordering Location: [facility] RITO OP Received: 09/14/2024 12:47 PM Pathologist: Charmaine Myrick MD Specimen: Toe, Left, Left Great Toe 09/16/2024 11:40 AM CDT [facility] Final Diagnosis Toe, left great, amputation (A): - Skin ulceration and necrosis - Acute osteomyelitis - Bone margin negative for acute inflammation - Skin and soft tissue margin appears viable 09/16/2024 11:40 AM CDT [facility] at 1140 CDT Microscopic Description and Comment Microscopic examination substantiates the diagnosis. 09/16/2024 11:40 AM CDT [facility] Clinical History The patient is a 69-year-old man with first toe dry gangrene and history of PAD. 09/16/2024 11:40 AM CDT [facility] Gross Description The requisition [...] hemorrhage. There are no additional gross lesions. Lead Presser sections are submitted as follows: A1-skin and soft tissue to resection margin, medial and dorsal surfaces A2-bony resection margin, decalcified A3-partial proximal cross-section with surrounding mummification, decalcified IKD 09/16/2024 11:40 AM T [facility] Pathologist Location at [facility] 09/16/2024 11:40 AM T [facility] Disclaimer The performance characteristics of all immunohistochemical and indirect immunofluorescence stains (if any) cited in this report were determined by the Histopathology Laboratory of [facility]. Some of these tests were developed by [...] attending (teaching) pathologist. 09/16/2024 11:40 AM T [facility] Embedded Images 09/16/2024 11:40 AM T [facility] Amputation, Traumatic (Gross Only) (Toe, Left) 09/14/2024 11:45 AM CDT 09/14/2024 12:47 PM CDT Comment:Pre-op diagnosis: Toe gangrene (HCC) [I96] us Elroy Holcomb MD LAB - PATHOLOGY/CYTOLOGY O RDERABLES Final Result [facility] [address] [place] [address], [facility] [phone] * Peripheral Nerve Block (09/14/2024 10:38 AM [...] fungus isolated [facility] 10/11/2024 8:05 AM CDT [facility] Fungus Stain No yeast or hyphae seen 10/11/2024 8:05 AM CDT [facility] Microbiology PERITONEAL DIALYSATE SPECIMEN / Unknown Collection / Unknown 09/13/2024 8:08 PM CDT 09/13/2024 8:10 PM CDT us Alexis Rodrigez III, MD LAB - MICROBIOLOGY ORDE AZUCENA Final Result Performing Organization Address City/[facility]/ZIP Co de Phone Number [facility] [address] [place] [address], [facility] [phone] * DIFFERENTIAL MANUAL FLUID (09/13/2024 8:08 PM CDT) Fluid Source Peritoneal 09/13/2024 9:03 PM CDT [facility] Body Fluid Total Cell Count 100 x10E6/L 09/13/2024 9:03 PM CDT [facility] Neutrophils Fluid Percent 11 % 09/13/2024 9:03 PM CDT [facility] Lymphocytes Fluid Percent 6 % 09/13/2024 9:03 PM CDT [facility] Macrophages Fluid Percent 79 % 09/13/2024 9:03 PM CDT [facility] Mesothelial Cells Fluid Percent 4 % 09/13/2024 9:03 PM CDT [facility] Fluid PERITONEAL FLUID / Unknown Collection / Unknown 09/13/2024 8:08 PM CDT 09/13/2024 8:10 PM CDT Narrative [facility] - 09/13/2024 9:03 PM CDT No reference ranges established for body fluid differential cell counts. The test results must be integrated into the clinical context for interpretation. us Alexis Rodrigez III, MD LAB - BODY FLUID ORDERA BLES Final Result Performing Organization Address [facility]/ZIP Co de Phone Number [facility] [address] [place] [address], [place] [phone] * CULTURE FLUID+GRAM STAIN (09/13/2024 8:08 PM CDT) Culture No growth [facility] 09/17/2024 12:38 AM CDT [facility] Gram Stain Light Polymorphonuclear cells 09/17/2024 12:38 AM CDT [facility] Gram Stain No organisms seen 025 12:38 AM CDT [facility] Other PERITONEAL DIALYSATE SPECIMEN / Unknown Collection / Unknown 09/13/2024 8:08 PM CDT 09/13/2024 8:10 PM CDT Alexis Rodrigez III, MD LAB - MICROBIOLOGY PK ZNEG Final Result Performing Organization Address City/[facility]/ZIP Co de Phone Number [facility] [address] [place] [address], [facility] [phone] * CULTURE ANAEROBE (09/13/2024 8:08 PM CDT) Culture No anaerobic organisms isolated [facility] 09/19/2024 8:26 AM CDT [facility] Microbiology PERITONEAL DIALYSATE SPECIMEN / Unknown Collection / Unknown 09/13/2024 8:08 PM CDT 09/13/2024 8:11 PM CDT Alexis Rodrigez III, MD LAB - MICROBIOLOGY PK ZENG Final Result Performing Organization Address [facility] Co de Phone Number [facility] [address] [place] [address], [facility] [phone] * CELL COUNT W DIFFERENTIAL FLUID (09/13/2024 8:08 PM CDT) Fluid Source Peritoneal 09/13/2024 9:03 PM CDT [facility] Fluid Appearance CLEAR 09/13/2024 9:03 PM CDT [facility] Fluid Color YELLOW 09/13/2024 9:03 PM CDT [facility] Total Nucleated Cells Fluid 279 Reference Range Not Established x10E6/L 09/13/2024 9:03 PM CDT [facility] RBC Count Fluid <2,000 Reference Range Not Established x10E6/L 09/13/2024 9:03 PM CDT [facility] Fluid PERITONEAL FLUID / Unknown Collection / Unknown 09/13/2024 8:08 PM CDT 09/13/2024 8:10 PM CDT Narrative [facility] - 09/13/2024 9:03 PM CDT No reference ranges established for body fluid cell counts. Any reference ranges provided are derived from published literature. The test results must be integrated into the clinical context for interpretation. us Alexis Rodrigez III, MD LAB - BODY FLUID ORDERA BLES Final Result [facility] [address] [place] [address], [facility] [phone] * VAS Bilateral Venous Duplex Le (09/13/2024 4:34 PM CDT) Anatomical Region Laterality Modality Lower Extremity Ultrasound 09/13/2024 4:18 PM CDT Narrative Procedure Note Lalit Castanon MD - 09/13/2024 us Alexis Rodrigez III, MD VASCULAR LAB ORDERABLES Edited Result - Final * SARS-COV-2 (COVID-19) RAPID (09/13/2024 6:02 AM CDT) COVID-19 PCR Not detected Not detected 09/14/19 25 6:36 AM CDT [facility] Microbiology SPECIMEN FROM NASOPHARYNGEAL STRUCTURE / Unknown Collection / Unknown 09/13/2024 6:02 AM CDT 09/13/2024 6:04 AM CDT Narrative [facility] - 09/13/2024 6:36 AM CDT The [...] LAB - MICROBIOLOGY ORDERABLE S Final Result [facility] [address] [place] [address], [facility] [phone] * TRANSFUSE RED BLOOD CELL LEUKOREDUCED UNIT(S) [...] Sera Chowdhury Dr, MD (manager residential). I, Terry Ramos MD have personally reviewed and interpreted this examination/study. > Interpreting Provider: Terry Ramos MD on 09/13/2024 9:42 AM Narrative 09/13/2024 9:42 AM CDT PROCEDURE: CT ANGIO AORTA FOR DISSECTION, DATE/TIME OF EXAM: 09/13/2024 12:28 AM, LOCATION [facility] INDICATION: R10.9: Abdominal pain, unspecified abdominal location [...] DATE/TIME OF EXAM: 09/13/2024 12:28 AM, LOCATION [facility] INDICATION: R10.9: Abdominal pain, unspecified abdominal location [...] Sera Chowdhury Dr, MD (manager residential). I, Lien. Constantino Ramos MD have personally reviewed and interpreted this examination/study. > Interpreting Provider: Terry Ramos MD on 09/13/2024 9:42 AM Yuriy Lopez MD CT ORDERABLES Final Result * PREPARE (CROSSMATCH) RBC UNIT(S), 1 Units (09/12/2024 11:30 PM CDT) Unit Description AS1 LR PRBC [facility] Unit ABO O [facility] Unit Rh NEG [facility] Product Number R43 [facility] Unit Donor # [id number] [facility] Unit Status transfused [facility] Product Code [id number] [facility] Blood Type Barcode 9500 [facility] Expiration Date [id number] [facility] Blood Bank BLOOD SPECIMEN / Unknown 09/12/2024 11:30 PM CDT 09/12/2024 11:37 PM CDT Yuriy Lopez MD LAB - BLOOD BANK ORDERABLES Final Result [facility] [address] [place] [address], [place] [phone] * TYPE + SCREEN PANEL (09/12/2024 11:30 PM CDT) Antibody Screen NEG 12:16 AM CDT [facility] ABO Rh O NEG 09/13/2024 12:16 AM CDT [facility] Blood Bank BLOOD SPECIMEN / Unknown Venipuncture / Unknown 09/12/2024 11:30 PM CDT 09/12/2024 11:37 PM CDT Yuriy Lopez MD LAB - BLOOD BANK ORDERABLES Final Result [facility] [address] [place] [address], [place] [phone] * CULTURE BLOOD (09/12/2024 10:00 PM CDT) Only the most recent of4 resultswithin the time period is included. Culture No growth day 5 [facility] 09/18/2024 1:30 AM CDT [facility] Blood PERIPHERAL BLOOD / Unknown Venipuncture / Unknown 09/12/2024 10:00 PM CDT 09/12/2024 10:21 PM CDT Yuriy Lopez MD LAB - MICROBIOLOGY ORDERABLE S Final Result [facility] [address] [place] [address], [facility] [phone] * (ABNORMAL) BASIC METABOLIC PANEL (CALCIUM TOTAL) (09/08/2024 10:45 AM [facility]) Only the most recent of6 resultswithin the time period is included. BUN 46(H) 7 - 26 mg/dL 09/08/2024 11:55 AM [facility] Creatinine 10.97(H) 0.71 - 1.16 mg/dL 09/08/2024 11:55 AM [facility] Sodium 142 136 - 145 mmol/L 09/08/2024 11:55 AM [place] [facility] Potassium 4.4 3.5 - 4.5 mmol/L 09/08/2024 11:55 AM [facility] Chloride 104 98 - 107 mmol/L 09/08/2024 11:55 AM [facility] CO2 25 22 - 29 mmol/L 09/08/2024 11:55 AM [facility] Glucose 112(H) 70 - 99 mg/dL 09/08/2024 11:55 AM [facility] Calcium 8.9 8.4 - 10.2 mg/dL 09/08/2024 11:55 AM [facility] Anion Gap 13 6 - 16 09/08/2024 11:55 AM [facility] BUN/Creatinine Ratio 4(L) 7 - 23 09/08/2024 11:55 AM [facility] Osmolality Calculated 307(H) 275 - 295 mOsm/kg 09/08/2024 11:55 AM [facility] eGFR by CKD-EPI 5(L) >=90 mL/min/1.7 3 m2 09/08/2024 11:55 AM [facility] Comment:Estimated Glomerular Filtration Rate (eGFR) calculated using the CKD-EPI Creatinine Equation (2020), per the National Kidney Foundation and [place] Society of Nephrology recommendations. Blood BLOOD SPECIMEN / Unknown Lab Venipuncture / Unknown 09/08/2024 10:45 AM CDT 09/08/2024 11:26 AM CDT us Mellissa Freitas PA-C LAB - CHEMISTRY ORDERABLES Final Result [facility] [address] [place] [address], [facility] [phone] * VAS Bilateral Venous Mapping (09/07/2024 2:24 [...] thickening. Report dictated by Freddie Durham MD, (Card Scraper). I, Junior Hurley MD have personally reviewed [...] thickening. Report dictated by Freddie Durham MD, (Card Scraper). I, Junior Hurley MD have personally reviewed and interpreted this examination/study. > Interpreting Provider: Junior Hurley MD on 56:26 AM Charmaine Khalil MD CT ORDERABLES Final Result * (ABNORMAL) POTASSIUM WHOLE BLD (09/01/2024 3:54 PM CDT) Pathologist [facility] Potassium Whole Blood 3.1(L) 3.5 - 5.5 mmol/L 09/01/2024 4:05 PM CDT [facility] Blood WHOLE BLOOD SPECIMEN / Unknown Venipuncture / Unknown 09/01/2024 3:54 PM CDT 09/01/2024 3:57 PM CDT us Jaqueline Crews CERTIFIED NUCLEAR MEDICINE TECHNOLOGIST-MOTOR VEHICLE SALESPERSON LAB - CHEMISTRY ORDERABL ES Final Result [facility] [address] [place] [address], [place] [phone] * CCL STAGED PERC CORONARY INTERVENTION, CCL [...] 6Fr 1.25Mm Diamondback catheter and using a [facility] Diamondback 360 Viperwire Adv wire. 2 passes [...] continuing DAPT Cardiology clinic f/u Jaqueline Crews CERTIFIED NUCLEAR MEDICINE TECHNOLOGIST-MOTOR VEHICLE SALESPERSON CV CARDIAC CATH CUPID MI [facility] Final Result * (ABNORMAL) IRON + TRANSFERRIN PANEL (08/19/2024 1:41 AM CDT) Iron 40(L) 50 - 175 ug/dL 08/19/2024 2:17 AM CDT [facility] Transferrin 116(L) 174 - 382 mg/dL 08/19/2024 2:17 AM CDT [facility] Transferrin Saturation % 28 16 - 50 % 08/19/2024 2:17 AM CDT [facility] TIBC Calculated 145(L) 240 - 450 ug/dL 08/19/2024 2:17 AM CDT [facility] Blood BLOOD SPECIMEN / Unknown Lab Venipuncture / Unknown 08/19/2024 1:41 AM CDT 08/19/2024 2:01 AM CDT Hannah Goodman MD LAB - CHEMISTRY ORDERABLES F inal Result [facility] [address] [place] [address], [facility] [phone] * (ABNORMAL) FERRITIN (08/19/2024 1:41 AM CDT) Ferritin 560(H) 22 - 275 ng/mL 08/19/2024 2:35 AM CDT [facility] Blood BLOOD SPECIMEN / Unknown Lab Venipuncture / Unknown 08/19/2024 1:41 AM CDT 08/19/2024 2:01 AM CDT us Hannah Goodman MD LAB - CHEMISTRY ORDERABLES F inal Result Performing Organization Address [facility] de Phone Number [address] [address], [place] [phone] * VITAMIN D 25-HYDROXY (08/19/2024 1:23 AM CDT) Vitamin D, 25 Hydroxy 36.2 30.0 - 80.0 ng/mL 08/19/2024 2:24 AM CDT [facility] Comment: The recommendations for 25-Hydroxy Vitamin [...] ORDERABLES F inal Result Performing Organization Address [facility] Co de Phone Number [address] [address], [place] [phone] * CCL PERIPHERAL ANGIOGRAM (08/18/2024 2:33 PM CDT) Anatomical Region Laterality Modality X-Ray Angiograph y Narrative 08/19/2024 2:24 PM CDT Left leg angiogram showed left AT severe diffuse disease with multiple subtotal occlusion and left PT severe diffuse disease with HERBOLOGIST of distal PT without clear reconstitution. Successful [...] 0.018 CXI microcatheter with multiple wires(Command 18/command 14/Gatekeeper 200) to get to great toe branch of dorsalis pedis using pilot fuel engineer [address]. - the AT-DP lesion was dilated with balloons mentioned in figure. - We turn our attention to PT. We crossed the PT HERBOLOGIST with 0.018 CXI microcatheter with multiple wires (command 18, command 14, Gatekeeper 200) and able to go to lateral [...] using angiography. Left Posterior Tibial: Ost L HARD TILE SETTER APPRENTICE to Dist L HARD TILE SETTER APPRENTICE lesion is 100% stenosed. Stenosis was measured [...] 10% residual stenosis post intervention. Ost L HARD TILE SETTER APPRENTICE to Dist L HARD TILE SETTER APPRENTICE lesion: Angioplasty: Angioplasty independent of stent deployment [...] Plavix. -recommend close follow up with drafter construction and follow up with me in clinic with JOSIANE/TBI. us Hannah Goodman MD CV INVASIVE VASCULAR AND IR CUPID PROC Final Result * ACT LR - POCT ([facility]) (08/18/2024 2:08 PM CDT) Only the most recent of4 resultswithin the time period is included. ACT LR 231 See result comments sec 08/19/2024 9:02 AM CDT [facility] Blood BLOOD SPECIMEN / Unknown 08/18/2024 2:08 PM CDT 08/19/2024 9:02 AM CDT Narrative [facility] - 08/19/2024 9:02 AM CDT ACT-LR Therapeutics ranges are: Cardiac cork slabs sawyer = 200-300 seconds Sheath pull = ACT [...] MD LAB - COAGULATION ORDERABLES Final Result [facility] [address] [place] [address], [facility] [phone] * MRI ABDOMEN WWO CONTRAST (08/04/2024 12:24 [...] dictated by Alan Cole MD (manager residential). Terry Leigh MD have personally reviewed and [...] of the left kidney, not significantly changed, [id number] image 49, series 16 image 41. A [...] sylvie Non-reac tive 06/16/2024 5:50 PM CDT [facility] Comment:Hepatitis C Antibody screen indicates [...] LAB - CHEMISTRY ORDERABLES Fi nal Result [facility] [address] [place] [phone], [facility] [phone] from Last 3 Months or Most Recently Relevant to Health Maintenance Insurance [employer] [facility] MEDICARE ADV AENA MEDICARE ADV [facility] [address] * Guarantor: GRACE INTERIANO Account Type Relation to Patient Date of Phone Billing Address Personal/Family [id number] * Guarantor: GRACE INTERIANO Account Type Relation to Patient Date of Phone Billing Address Personal/Family [address] [place] [address] Advance Directives * Full Code (Latest Code [...] 3:16 PM 08/19/2024 4:36 PM Care Teams Merchandising Assistant Relationship Specialty Start Date End Date Jeff Strickland MD [address] [place] [address] PCP - General 03/05/18 [place] [id number] [address] Orthopedic Surgery 03/28/17
--- OUTSIDE RECORDS SUMMARY | 2024-11-03 00:06 | XMS_ITS ---
Author Organization [facility] Address [facility]ly [facility] [place] [address] Care Team Providers Care Health Policy Nurse Name Role Phone Jeff Strickland MD Primary Care Provider Chan Nicholas MD Unavailable [phone] Alan Mccall MD Unavailable Pepito Haro MD PhD Unavailable [phone] Solange Guido MD Unavailable [phone] Active Problems Problem Noted Date Diagnosed Date [...] damage Assessment & Plan (03/09/2024 6:25 PM SCRAP CRUSHER): Vision OD trends mild improvement, though still [...] that genetic results would not care management assistant. Given we have exhausted available treatment without [...] 03/26/2021 Assessment & Plan (03/26/2021 1:17 PM SCRAP CRUSHER): Enlarged mild sella turcica on a routine [...] units Assessment & Plan (03/26/2021 1:17 PM SCRAP CRUSHER): Chronic, uncontrolled, improving A1c today 7.7 % [...] WNL Assessment & Plan (03/26/2021 1:16 PM SCRAP CRUSHER): Pt currently on Levothyroxine 112 mcg oral [...] 11/18/2018 Assessment & Plan (01/21/2019 2:02 PM SCRAP CRUSHER): Symptomatic. Will request for esophageal manometry. Continue [...] well Assessment & Plan (03/26/2021 1:16 PM SCRAP CRUSHER): On statin therapy Tolerating well Last lipid [...] nephrectomy. 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 [id number] Current Treatment and Therapy Plans No current [...] were not included. Kendall Carl 1955 Referring Construction Millwright: Alan Mccall Dialysis Info: NOD GFR 13 Type: Time: (Not currently on dialysis) days Blood Type: O NEG Body mass index is 37.36 kg/m . ALERTS Paperhanger: needs to establish Past Medical History: Diagnosis Date Arthropathy RA. Dr Strickland manages. 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 CKD (chronic kidney disease), stage V Community acquired pneumonia 2018 [facility] hospitalized. Diabetes mellitus 20 years. Lantus pen. Esophageal reflux takes med Hypercholesteremia 5-10 yrs meds Hypertension takes meds Hypothyroidism meds 20 years Kidney stones 5-6 years ago had 2 in the same year. Malignancy right kidney 2012 Obstructive sleep apnea 3 years. [facility]. Cannont remember doctors name Renal cell [...] support system and appropriate discharge plan. Plan: horticultural farmworker to provide supportive services as needed. Patient appears to be a reasonable candidate for transplant from a psychosocial perspective. -Post transplant arrangement forms are needed prior to being listed. -Updated toxicology results needed, per protocol Psychiatric Consult Recommended: No Transplant [employer] Registrar: Joy Tam LCSW RD: 11/09/2019 BMI= 36.2, [...] use my fitness pal or my food job coach/job developer) - Consume no more than 2000 calories a day E-mailed pt's a 2000 calorie, CKD meal plan. Items Still Pending: Clinic, colonoscopy Acute pain of left shoulder 01/25/2019 03/25/2023 Non-cardiac chest pain 11/18/201803/25 Assessment & Plan (01/21/2019 2:02 PM SCRAP CRUSHER): The pain is persistent. The patient described [...] has had extensive cardiac workup by the manager consumer including coronary angiogram. He has chest pain [...]
--- OUTSIDE RECORDS SUMMARY | 2024-11-03 00:06 | XMS_ITS ---
Author Organization [facility] Address [address] [place] [address] Care Team Providers Care Helpdesk Technician Name Role Phone Jeff Strickland MD Primary Care Provider Chan Nicholas MD Unavailable [phone] Alan Mccall MD Unavailable Pepito Haro MD PhD Unavailable [phone] Solange Guido MD Unavailable Dialysis Access Sites [...] both eyes EGFR Routine 04/13/2024 5:06 AM PHYSIOTHERAPY ASSISTANT HEMOGLOBIN A1C STAT 04/10/2024 11:41 PM PHYSIOTHERAPY ASSISTANT LIPID PANEL STAT 04/10/2024 11:41 PM PHYSIOTHERAPY ASSISTANT from Last 3 Months or Most Recently [...] 300 + = 14 units Active FA-vit Uudgg-P-htyw-vitamin D3 (Dialyvite 800-Ultra D) 0.8-2,000 mg-unit tablet [...] total) by mouth 06/04/19 25 Active vitamins A,C,I-dqgp-ndgqcp (PreserVision AREDS) 4,296 mcg-226 mg-90 mg capsule [...] damage Assessment & Plan (03/09/2024 6:25 PM PHYSIOTHERAPY ASSISTANT): Vision OD trends mild improvement, though [...] We discussed that genetic results would not chart changer. Given we have exhausted available treatment [...] 03/26/2021 Assessment & Plan (03/26/2021 1:17 PM PHYSIOTHERAPY ASSISTANT): Enlarged mild sella turcica on a [...] units Assessment & Plan (03/26/2021 1:17 PM PHYSIOTHERAPY ASSISTANT): Chronic, uncontrolled, improving A1c today 7.7 [...] WNL Assessment & Plan (03/26/2021 1:16 PM PHYSIOTHERAPY ASSISTANT): Pt currently on Levothyroxine 112 mcg [...] 11/18/2018 Assessment & Plan (01/21/2019 2:02 PM PHYSIOTHERAPY ASSISTANT): Symptomatic. Will request for esophageal manometry. [...] well Assessment & Plan (03/26/2021 1:16 PM PHYSIOTHERAPY ASSISTANT): On statin therapy Tolerating well Last [...] nephrectomy. 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 [id number] Immunizations Immunization Administration Dates Next Due Hep [...] = 0.6 oz pur e alcohol) rarely [facility] [employer] Answer Date Recorded In the past 12 months has [employer], gas, oil, or water [employer] threatened to shut off services in your [...] any clubs o r organizations such as druze groups, unions, fraternal or athletic groups, or [...] on file Legal Sex Male 2:23 AM PHYSIOTHERAPY ASSISTANT Gender Identity Not on file Sexual [...] CDT Respiratory Rate 16 04/13/2024 8:33 AM PHYSIOTHERAPY ASSISTANT Oxygen Saturation 98% 04/13/2024 8:33 AM PHYSIOTHERAPY ASSISTANT Inhaled Oxygen Concentration - - Weight 122.3 [...] Selwyn Wong M.D. LC: MARC Report ID: [id number] Reading Location: [id number] Procedure Note Dolores Wong MD - 10/12/2024 EXAM DESCRIPTION: MRI BRAIN WO CONTRAST REASON FOR STUDY: other symptoms and signs involving cognitive functionsand awareness Cognitive changes, confusion, worse over that last several weeks, noinjury or trauma but patient states he has had several surgeries recently TECHNIQUE: Multiplanar imaging includes non-contrasted T1, T2, FLAIR, and diffusion with ADC map sequences. Additional sequence(s) sensitive [employer] products. Images stored on PACS. COMPARISON: MRI [...] Selwyn Wong M.D. LC: MARC Report ID: [id number] Reading Location: [id number] us Provider Transcribed Order IMG MRI PROCEDURES [...] Result * (ABNORMAL) eGFR (04/13/2024 5:06 AM PHYSIOTHERAPY ASSISTANT) eGFR 5(L) >=60 mL/min/1. 73 m2 Comment: [...] reviewed 2020. Blood 04/13/2024 5:0 6 AM PHYSIOTHERAPY ASSISTANT 04/13/2024 5:31 AM PHYSIOTHERAPY ASSISTANT us Saul Engle MD LAB BLOOD ORDERABLES Final Resul t [facility] Department of Laboratories [place], [place] [id number] * (ABNORMAL) Lipid panel (04/10/2024 11:41 PM PHYSIOTHERAPY ASSISTANT) Cholesterol 145 30 - 199 mg/dL Comment: [...] revised on 2017. HDL 22(L) >=40 mg/dL [facility] Comment: Interpretive Data [...] on 2017. LDL, calculated See Comment <=129 [facility] Comment: Unable to [...] on 2023. Non-HDL Cholesterol 123 mg/dL [facility] Comment: [...] last revised on 2017. Chol/HDL ratio 7 [facility] Blood 04/10/2024 11:4 1 PM PHYSIOTHERAPY ASSISTANT 04/10/2024 11:55 PM PHYSIOTHERAPY ASSISTANT us Nicole Boo MD LAB BLOOD ORDERABLES Final Result [facility] Department [place] [address] from Last 3 Months or Most Recently Relevant to Health Maintenance
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
--- NOTE | 2024-11-03 01:28 | ED.GENADULT ---
HPI - General Adult General Chief complaint: Unspecified Stated complaint: haven't slept in four days Time Seen by Provider: 11/02/24 23:56 History of Present Illness HPI narrative: Patient is a 69-year-old male who presents to the ER with complaints of insomnia. He reports he has been unable to sleep for the past 4 nights. Patient reports he has taken trazodone, Tylenol p.m., and Ativan 0.5 mg but it has not helped. He reports he has a lot on his mind right now, as he recently had his toe amputated and is not healing. Patient also reports he is losing his eyesight. His reports he has recently added protein to his dialysis solution and is wondering if this is contributed to his lack of sleep. Patient endorses a history peritoneal dialysis, hypertension, diabetes, thyroid abnormality. He denies any abdominal pain, recent fevers, urinary symptoms, or new onset back pain. Related Data Home Medications ?Medication ?Instructions ?Recorded ?Confirmed ?Last Taken ?Type aspirin 81 mg tablet,delayed 81 mg PO HS 02/01/19 09/23/24 08/04/24 History release (Sami Low Dose Aspirin) vit C 250 mg-vit E 200 unit-zinc 1 tablet PO Q12H 02/01/19 09/23/24 08/05/24 History 12.5 mg-copper 1 dp-yif-vyxjwt tablet (ICaps AREDS2 (copper citrate)) cholecalciferol (vitamin D3) 125 125 mcg PO DAILY 10/01/22 09/23/24 08/05/24 History mcg (5,000 unit) tablet (Vitamin D3) atorvastatin 80 mg tablet 80 mg PO HS 09/02/23 09/23/24 08/04/24 History folic acid 0.8 mg-vit B comp with 800 tablet PO DAILY 04/03/24 09/23/24 08/05/24 History R-iosv-flggxws D3 2,000 unit tablet (Dialyvite 800-Ultra D) insulin aspart U-100 100 unit/mL 1 sliding scale dose subcut TID 04/03/24 09/23/24 08/05/24 History (3 mL) subcutaneous pen (Novolog FlexPen U-100 Insulin aspart) insulin glargine 100 unit/mL (3 35 unit subcut HS 04/03/24 09/23/24 08/04/24 History mL) subcutaneous pen (Basaglar KwikPen U-100 Insulin) lisinopril 20 mg tablet 20 mg PO BID 04/21/24 09/23/24 08/05/24 History blood-glucose transmitter (Dexcom 04/23/24 09/23/24 Unknown History G6 Transmitter device) carvedilol 25 mg tablet 25 mg PO BID 06/17/24 09/23/24 08/05/24 History tamsulosin 0.4 mg capsule 0.4 mg PO HS 06/17/24 09/23/24 08/04/24 History clopidogrel 75 mg tablet 75 mg PO HS 07/25/24 09/23/24 08/04/24 History furosemide 80 mg tablet 160 mg PO BID 09/23/24 09/23/24 Unknown History nifedipine 30 mg tablet,extended 30 mg PO DAILY 09/23/24 09/23/24 Unknown History release Allergies Allergy/AdvReac Type Severity Reaction Status Date / Time oxycodone AdvReac Unknown Hallucinati Verified 11/02/24 23:18 ng Review of Systems Review of Systems: All systems reviewed & are unremarkable except as noted in HPI and below PMFSH Past Medical History Medical History Hypertensive heart disease with heart failure Chronic diarrhea Family history of colon cancer in father Chronic ethmoidal sinusitis Nasal congestion Bilateral impacted cerumen Allergic rhinitis Chronic sinusitis Chronic recurrent sinusitis Hypertensive CHF C. difficile colitis Arthritis Kidney stones Benign prostatic hyperplasia Coronary artery disease End-stage renal disease on peritoneal dialysis Obstructive sleep apnea Insulin dependent type 2 diabetes mellitus Renal cell carcinoma Status post partial left nephrectomy. Dyslipidemia Clostridium difficile infection Gastroesophageal reflux disease Depression with anxiety Hypothyroidism Cirrhosis Pituitary tumor Status post resection. Anemia Chronic diastolic (congestive) heart failure Hypertension Surgical History Surgical History History of open reduction and internal fixation (ORIF) procedure (11/2022) Screw fixation of sternal fracture. History of colonoscopy with polypectomy History of umbilical hernia repair History of inguinal hernia repair History of coronary artery stent placement History of cardiac catheterization (08/2020) Stent x2 to the LAD. History of arthroplasty of right knee History of cataract extraction History of pituitary surgery (11/2021) History of partial nephrectomy Partial left nephrectomy for renal cell carcinoma. History of cholecystectomy (2007) Family History Family History Mother Aneurysm Hypertension Cerebrovascular accident Heart murmur Father Carcinoma of colon Social History Social History Social History: Surrogate medical decision maker: Harriet Carl, spouse. Code status: Full code. Smoking status: Never smoker Second hand tobacco smoke exposure: No Alcohol intake: never Alcohol use details: rare, holidays Substance use: never Substance use type: does not use Do You Feel Safe in your Home?: Yes Lack of Transportation: No Lack of Food: Never True Current Housing: I Have Housing Concerned About Future Housing: No Difficulty Paying Gas/Electric Bills: No Difficulty Paying for Meds: No Currently Unemployed: No Education: Trade/Vocational Certificate Difficulty w/ Childcare or Family Care: No Living arrangements: with family Additional living arrangements comments: Lives with spouse in [place]. Occupation/Education: retired Additional occupation/education comments: [employer]. Spiritual care concerns: No Agree to blood products: Yes Exam Narrative: GENERAL: Well appearing, obese, non-toxic, in no acute distress. HEAD: Normocephalic, atraumatic. NECK: Supple. No adenopathy, no masses. RESPIRATORY: Airway patent, respirations nonlabored. Clear to auscultation bilaterally, no rales, rhonchi, wheezing. CARDIOVASCULAR: Regular rate and rhythm without murmurs, rubs, or gallops. Peripheral pulses 2+ and equal bilaterally. ABDOMINAL: Soft, nontender, distended, no hepatosplenomegaly. Normoactive BS. MUSCULOSKELETAL: Moves all extremities. Strength/ROM intact without gross deformities. SKIN: Warm, dry, slightly jaundiced. No rashes. NEURO: A&O X3. Speech clear. Cranial nerves II-XII intact. No ataxic movements. PSYCHIATRIC: Flat affect Course Vital Signs Vital signs: Vital Signs Temperature 36.4 C L 11/02/24 23:13 Pulse Rate 79 11/02/24 23:13 Respiratory Rate 19 11/02/24 23:13 Blood Pressure 151/56 H 11/02/24 23:13 Pulse Oximetry 100 11/02/24 23:13 Oxygen Delivery Room Air 11/02/24 23:13 Temperature 36.4 C L 11/02/24 23:13 Pulse Rate 79 11/02/24 23:13 Respiratory Rate 19 11/02/24 23:13 Blood Pressure 151/56 H 11/02/24 23:13 Pulse Oximetry 100 11/02/24 23:13 Oxygen Delivery Room Air 11/02/24 23:13 Medical Decision Making MDM Narrative Medical decision making narrative: Patient is a 69-year-old male who presents to the ER with complaints of insomnia. He reports he has been unable to sleep for the past 4 nights. Patient reports he has taken trazodone, Tylenol p.m., and Ativan 0.5 mg but it has not helped. He reports he has a lot on his mind right now, as he recently had his toe amputated and is not healing. Patient also reports he is losing his eyesight. His reports he has recently added protein to his dialysis solution and is wondering if this is contributed to his lack of sleep. Patient endorses a history peritoneal dialysis, hypertension, diabetes, thyroid abnormality. He denies any abdominal pain, recent fevers, urinary symptoms, or new onset back pain. Extensive discussion between patient, his , and nurse practitioner. Joint decision was made that patient will take 1 g of Ativan when he gets home. If he is not asleep within half an hour he is to take another 0.5 mg of Ativan. Patient should call his primary care provider tomorrow to schedule a follow-up appointment for a more concrete plan to treat insomnia. Patient will be given a 5 day supply to take Ativan 1 g HS as needed. Strict return precautions provided. Patient verbalized understanding and is in agreement with plan. Vital signs stable at time of discharge. All questions answered. Differential Diagnosis Differential Diagnosis: Insomnia, anxiety, depression Vital Signs Vital Signs: Vital Signs Temperature 36.4 C L 11/02/24 23:13 Pulse Rate 79 11/02/24 23:13 Respiratory Rate 19 11/02/24 23:13 Blood Pressure 151/56 H 11/02/24 23:13 Pulse Oximetry 100 11/02/24 23:13 Oxygen Delivery Room Air 11/02/24 23:13 Temperature 36.4 C L 11/02/24 23:13 Pulse Rate 79 11/02/24 23:13 Respiratory Rate 19 11/02/24 23:13 Blood Pressure 151/56 H 11/02/24 23:13 Pulse Oximetry 100 11/02/24 23:13 Oxygen Delivery Room Air 11/02/24 23:13 Discharge Plan Discharge Clinical Impression: Insomnia, Anxiety Patient Disposition: Home Condition: Stable Instructions: Antibiotic Form, Insomnia (ED) Additional Instructions: Please return to the ER with any worsening symptoms. Follow-up with primary care provider as soon as possible for further treatment plan. Take all medications as prescribed, including regularly scheduled medications. You may take 1 mg of Ativan at night before bed. If you are still unable to sleep half an hour later please take an additional 0.5 mg. Please use precautions to prevent falls after taking this medication. Patient Language: Belarusian Prescriptions: New lorazepam [Ativan] 1 mg tablet 1 mg PO HS PRN (Reason: sleep) Qty: 5 0RF No Action aspirin [Sami Low Dose Aspirin] 81 mg Tablet,Delayed Release (Dr/Ec) 81 mg PO HS ICaps AREDS2 (copper citrate) 250 mg-200 unit -12.5 mg-1 mg Tablet 1 tablet PO Q12H pantoprazole 40 mg tablet,delayed release (DR/EC) 40 mg PO QAM Qty: 30 3RF (DME) Dexcom G6 Transmitter Device See Rx Instructions .Route Rx Instructions: As directed gabapentin 100 mg tablet 100 mg PO BID Qty: 60 1RF nifedipine 30 mg tablet extended release 30 mg PO DAILY lanthanum 1,000 mg tablet,chewable 1,000 mg PO TID Qty: 1 0RF Rx Instructions: administer with food; chew thoroughly before swallowing furosemide 80 mg tablet 160 mg PO BID lisinopril 20 mg tablet 20 mg PO BID cholecalciferol (vitamin D3) [Vitamin D3] 125 mcg (5,000 unit) Tablet 125 mcg PO DAILY atorvastatin 80 mg tablet 80 mg PO HS carvedilol 25 mg tablet 25 mg PO BID tamsulosin 0.4 mg capsule 0.4 mg PO HS Dialyvite 800-Ultra D 0.8-2,000 mg-unit tablet 800 tablet PO DAILY insulin aspart U-100 [Novolog FlexPen U-100 Insulin] 100 unit/mL (3 mL) insulin pen 1 sliding scale dose subcut TID Patient Comments: PATIENT TAKES 5 UNITS WITH MEALS SCHEDULED AND GOES UP TO 15 UNITS IF IT GETS TO 300 insulin glargine [[place] RosenPen U-100 Insulin] 100 unit/mL (3 mL) insulin pen 35 unit subcut HS Patient Comments: 40 UNITS IN MORNING clopidogrel 75 mg tablet 75 mg PO HS levothyroxine 112 mcg tablet 112 mcg PO DAILY Qty: 90 2RF lorazepam [Ativan] 0.5 mg tablet 0.5 mg PO DAILY PRN (Reason: Anxiety) Qty: 30 0RF hydrocodone-acetaminophen 5-325 mg tablet 1 tablet PO Q6H PRN (Reason: pain) Qty: 30 0RF Follow-up/Referrals: Jeff Strickland MD [Primary Care Provider, Family Practice] Time of Disposition: 01:37
== END 2024-11-03 01:55 | disposition home or self-care (01) ==
PROVIDERS: Emergency Provider Registered Nurse; PCP Family Medicine
DX: G47.00 Insomnia, unspecified (principal); F41.8 Other specified anxiety disorders; I50.32 Chronic diastolic (congestive) heart failure; I13.2 Hypertensive heart and chronic kidney disease with heart failure and with stage 5 chronic kidney disease, or end stage renal disease; E11.22 Type 2 diabetes mellitus with diabetic chronic kidney disease; N18.6 End stage renal disease; Z99.2 Dependence on renal dialysis; I25.10 Atherosclerotic heart disease of native coronary artery without angina pectoris; E78.5 Hyperlipidemia, unspecified; E03.9 Hypothyroidism, unspecified; K74.60 Unspecified cirrhosis of liver; K21.9 Gastro-esophageal reflux disease without esophagitis; N40.0 Benign prostatic hyperplasia without lower urinary tract symptoms; M19.90 Unspecified osteoarthritis, unspecified site; G47.33 Obstructive sleep apnea (adult) (pediatric); Z96.651 Presence of right artificial knee joint; Z95.5 Presence of coronary angioplasty implant and graft; Z85.528 Personal history of other malignant neoplasm of kidney; Z87.442 Personal history of urinary calculi; Z86.0100 Personal history of colon polyps, unspecified; Z90.5 Acquired absence of kidney; Z89.429 Acquired absence of other toe(s), unspecified side; Z90.49 Acquired absence of other specified parts of digestive tract; Z98.49 Cataract extraction status, unspecified eye; Z79.82 Long term (current) use of aspirin; Z79.899 Other long term (current) drug therapy; Z79.4 Long term (current) use of insulin; Z79.02 Long term (current) use of antithrombotics/antiplatelets
CPT/HCPCS: 99283

== ENCOUNTER 2024-11-04 12:34 | Emergency (ER) | payer MEDICARE, SELFPAY ==
--- OUTSIDE RECORDS SUMMARY | 2024-01-19 09:15 | XMS_ITS ---
Author Organization [facility] Address [address] [place] [address] [place] [address] Care Team Providers Care Rabbit Fancier Name Role Phone DONNIE WOOD MD Primary Care Provider Lance Sergio Trujillo Unavailable [phone] REASON FOR VISIT Left > Right Low [...] 01/19/2024 BMI 33.81 kg/m2 01/19/2024 Post procedure fa=021/71,65, 16.Discharged home ambulatory with per ambulatory. No acute distress noted. Encounters Encounter Location Date Provider Diagnosis [facility] [address] [place] [address] [place] [address] 01/19/2024 Sergio Schmitzick Radiculopathy, lumba r region [...] discharged home in good condition with a charter bus driver. X-ray time: 25 seconds Progress Notes [...] patient's typical axial low back pain. John's, [place]'s and Gaenslen's are positive bilaterally. There is [...]
--- OUTSIDE RECORDS SUMMARY | 2024-02-03 06:45 | XMS_ITS ---
Author Organization [facility] Address [address] [facility] [address] Care Team Providers Care Charter Coordinator Name Role Phone DONNIE WOOD MD Primary Care Provider Lance Sergio Trujillo Unavailable [phone] ALLERGIES No Known Allergies REASON FOR VISIT [...] retired. 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 John's, [place]'s and Gaenslen's are positive bilaterally. There is [...]
--- OUTSIDE RECORDS SUMMARY | 2024-03-03 06:30 | XMS_ITS ---
Author Organization [facility] Address [address] [place] [address] [place] [address] Care Team Providers Care Honing Job Setter Name Role Phone DONNIE WOOD MD Primary Care Provider Lance Sergio Trujillo Unavailable [phone] ALLERGIES No Known Allergies REASON FOR VISIT [...] retired. 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 He denies tobacco, alcohol, or illicit drug abuse PROBLEMS Problem Type ICD Code Onset Dates Problem Status W/U Status Risk SNOMED Code Notes Problem Primary osteoarthritis, 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) Active confirmed Localized, primary osteoarthritis of the shoulder region ([id number]) VITAL SIGNS Blood pressure systolic 112 mm Hg 03/03/19 25 Blood pressure diastolic 62 mm Hg 025 Heart Rate 59 /min 03/03/2024 Respiratory Rate 18 /min 03/03/2024 Height 5 ft 9 in in 03/03/2024 Weight 229 lbs 03/03/2024 BMI 33.81 kg/m2 03/03/2024 Encounters Encounter Location Date Provider Diagnosis [facility] [address] [facility] [place] [address] 03/03/2024 Sergio Stynowick Pain in left knee M25.562 ; Primary osteoarthritis, unspecified shoulder M19.019 ; Other chest pain R07.89 ; Radiculopathy, lumbar region M54.16 ; Other intervertebral disc degeneration, lumbar region M51.36 ; 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 This note was dictated by KELSEI Chakraborty. Total Time Spent with Patient and [...] patient's typical axial low back pain. John's, [place]'s and Gaenslen's are positive bilaterally. There is [...]
--- OUTSIDE RECORDS SUMMARY | 2024-03-08 07:45 | XMS_ITS ---
Author Organization [facility] Address [address] [place] [address] [place] [address] Care Team Providers Care Slip Bridge Operator Name Role Phone DONNIE WOOD MD Primary Care Provider Robba Sergio Trujillo Unavailable [phone] REASON FOR VISIT BILAT SHOULDER JOINT INJECTION (NEED XRAY - BEING DONE AT [facility]) MEDICATIONS Medication SIG (Take, Route, Frequency, [...] Location Date Provider Diagnosis [facility] [address] [place] [phone] 03/08/2024 Sergio Rivera Primary osteoarthritis, unspecified shoulder [...] discharged home in good condition with a driver license reviewing officer. X-ray time: 6 seconds Progress Notes * [...] patient's typical axial low back pain. John's, [place]'s and Gaenslen's are positive bilaterally. There is [...] and Follow-up: Follow-up Plan documen wendy:: Yes [facility] Quality 2020: [facility] Documented:: Compliant
--- OUTSIDE RECORDS SUMMARY | 2024-03-31 10:13 | XMS_ITS ---
Author Organization [facility] Address [address] [place] [address] Care Team Providers Care Psychiatry Adult Physician Name Role Phone DONNIE WOOD MD Primary Care Provider Unavaila Sergio Trujillo Unavailable [phone] Encounters Encounter Location Date Provider Diagnosis [facility] [address] [place] [address] 03/31/2024 Sergio Rivera PLAN OF TREATMENT No Information
--- OUTSIDE RECORDS SUMMARY | 2024-11-04 12:37 | XMS_ITS | Encounter Summary ---
Author Organization [facility] Address [address] [place] [address] Care Team Providers Care Tribunal Member Name Role Phone Deandre Bojorquez MD Unavailable [phone] Jeff Strickland MD Primary Care Provider [phone] Encounter Details Date Type Department Care Team (Late st Contact Info) Description 03/30/2024 Lab Requisition [facility] MAIN LAB [address] [place] [phone] Alan Davenport MD [facility] [place] [address] Social History Tobacco Use Types Packs/Day Years Used Date Smoking Tobacco: Never Smokeless Tobacco: Never Alcohol Use Standard Drinks/Week Comments Not Currently 0 (1 standard drink = 0.6 oz pur e alcohol) socially in past Sex and Gender Information Value Date Recorded Sex Assigned at Male 07/02/2021 2:37 PM CDT Legal Sex Male 10:14 PM DATE PITTER Gender Identity Male 07/02/2021 2:37 PM [...] [facility] [address] [facility], [place] [address] Marbin Flores MD [address] [facility] DIV [place] [address] Niraj Turner MD 12[address] [facility] 2L [place] [address] documented as of this encounter Procedures Procedure Name Priority Date/Time Associated Diagnosis Comments HOLD HLA SPECIMEN Routine 03/25/2024 2:5 1 PM DATE PITTER documented in this encounter Results * HOLD HLA SPECIMEN (03/25/2024 2:51 PM DATE PITTER) Hold HLA Specimen 03/30/2024 4:01 PM DATE PITTER [facility] ([facility]) Comment:The Hold HLA specime n has been received into the lab and will be held for 5 years at 4 degrees. Blood BLOOD SPECIMEN / Unknown 03/25/2024 2:51 PM DATE PITTER 03/30/2024 2:51 PM DATE PITTER Alan Davenport MD LAB - BLOOD BANK ORDERABLES F inal Result [facility]) [address] [place] [address], [facility] documented in this encounter Visit Diagnoses Not on filedocumented in this encounter Additional Health Concerns Infection Onset Date Last Indicated Resolved Time COVID-19 Under Investigation 09/13/2024 09/13/2024 09/13/2024 6:36 AM CDT documented as of this encounter Care Teams Tribunal Member Relationship Specialty Start Date End Date Jeff Strickland MD [address] [place] [address] PCP - General 03/05/18 [place] [address] [address] Orthopedic Surgery 03/28/17 documented as of this encounter
--- OUTSIDE RECORDS SUMMARY | 2024-11-04 12:37 | XMS_ITS | Encounter Summary ---
Author Organization [place] [facility] Address [address] [place] [address] Phone Care Team Providers Care Technical Sales Associate Name Role Phone Jeff Strickland MD Primary Care Provider Chan Nicholas MD Unavailable [phone] Alan Mccall MD Unavailable [phone] Lorna Lantigua MD Unavailable Juliette Savage RN Unavailable Pepito Haro MD PhD Unavailable Solange Guido MD Unavailable Letha Gil RN Unavailable [phone] Encounter Details Date Type Department Care Team (Late st Contact Info) Description 05/02/2021 Ophth Exam [facility] Medicine Ophthalmology [address] [place] [address] 1st [place] [address] Corina Ventura MD PhD [address] [address] Social History Tobacco Use Types [...] file Legal Sex Male 2:23 AM TOOL SETTER APPRENTICE Gender Identity Not on file Sexual Orientation [...] Suspected 03/24/2023 03/24/2023 03/24/2023 5:45 PM TOOL SETTER APPRENTICE COVID19 03/24/2023 03/24/2023 04/08/2023 3:06 AM TOOL SETTER APPRENTICE COVID: Recovered Comment:Added based on recent COVID infection. 04/08/2023 04/10/2023 07/07/2023 3:06 AM C DT COVID: Suspected 04/10/2024 04/10/2024 04/11/2024 1:24 AM TOOL SETTER APPRENTICE C. difficile suspected 04/11/2024 04/11/202404/11 1:21 PM TOOL SETTER APPRENTICE documented as of this encounter Eye Exam [...] arcade Normal Periphery Normal Normal Care Teams Technical Sales Associate Relationship Specialty Start Date End Date Jeff Strickland MD [address] [address] PCP - General Family Medicine 04/02/18 Chan Nicholas MD [address] [place] [address] [id number] Consulting Physician Gastroenterology 11/24/18 Alan Mccall MD [address] [place] [address] [address] Referring Physician Nephrology 11/24/18 Lorna Lantigua MD [facility] [address] [address] Consulting Physician Cardiology 11/24/18 07/22/23 Juliette Savage, RN [address] [place] [address] Nurse Navigator 06/04/21 03/14/22 Pepito Haro MD PhD [address] [place] [address] Consulting Physician Neurosurgery 12/03/22 Solange Guido MD [address] [facility] [address] [place] [address] Referring Physician Cardiovascular Disease 07/23/23 Letha iGl, RN [address] [facility] [address] [place] [address] [facility] Lab[facility] 04/14/24 04/18/24 documented as of this encounter
--- OUTSIDE RECORDS SUMMARY | 2024-11-04 12:37 | XMS_ITS | Encounter Summary ---
Author Organization [facility] Address [address] [place] [address] Care Team Providers Care Computer Designer Name Role Phone Deandre Bojorquez MD Unavailable [phone] Jeff Strickland MD Primary Care Provider [phone] Encounter Details Date Type Department Care Team (Late st Contact Info) Description 04/29/2024 Lab Requisition [facility] MAIN LAB [address] [place] [phone] Alan Davenport MD [facility]1 [facility] OF ABD TRANSPL[place] [address] Social History Tobacco Use Types Packs/Day Years Used Date Smoking Tobacco: Never Smokeless Tobacco: Never Alcohol Use Standard Drinks/Week Comments Not Currently 0 (1 standard drink = 0.6 oz pur e alcohol) socially in past Sex and Gender Information Value Date Recorded Sex Assigned at Male 07/02/2021 2:37 PM CDT Legal Sex Male 10:14 PM RECRUITING ASSOCIATE Gender Identity Male 07/02/2021 2:37 PM [...] [facility] - Endocr[facility]ology [address] [facility], [place] [address] Marbin Flores MD [address] [facility] DIV OF ABD [place] [address] Niraj Turner MD 12[address] [facility] 2L [place] [address] documented as of this encounter Procedures Procedure Name Priority Date/Time Associated Diagnosis Comments HOLD HLA SPECIMEN Routine 04/27/2024 1:4 8 PM CDT documented in this encounter Results * HOLD HLA SPECIMEN (04/27/2024 1:48 PM CDT) Hold HLA Specimen 04/29/2024 3:02 PM CDT [facility] ([facility]) Comment:The Hold HLA specime n has been received into the lab and will be held for 5 years at 4 degrees. Blood BLOOD SPECIMEN / Unknown 04/27/2024 1:48 PM CDT 04/29/2024 1:49 PM CDT Alan Davenport MD LAB - BLOOD BANK ORDERABLES F inal Result [facility] ([facility]) [address] [place] [address], [facility] documented in this encounter Visit Diagnoses Not on filedocumented in this encounter Additional Health Concerns Infection Onset Date Last Indicated Resolved Time COVID-19 Under Investigation 09/13/2024 09/13/2024 09/13/2024 6:36 AM CDT documented as of this encounter Care Teams Computer Designer Relationship Specialty Start Date End Date Jeff Strickland MD [address] [place] [address] PCP - General 03/05/18 [place] [address] [place] [address] Orthopedic Surgery 03/28/17 documented as of this encounter
--- OUTSIDE RECORDS SUMMARY | 2024-11-04 12:37 | XMS_ITS | Encounter Summary ---
Author Organization [facility] Healthcare Address [address] [place] [address] Care Team Providers Care Ripsaw Matcher Name Role Phone Jeff Strickland MD Primary Care Provider Chan Nicholas MD Unavailable [phone] Alan Mccall MD Unavailable [phone] Pepito Haro MD PhD Unavailable [phone] Solange Guido MD Unavailable [phone] Encounter Details Date Type Department Care Team (Late st Contact Info) Description 07/28/2024 Orders Only [facility] Health Information Management [address] [place] [address] Scanning, Provider Social History Tobacco Use Types Packs/Day Years Used Date Smoking Tobacco: Never Smokeless Tobacco: Never Alcohol Use Standard Drinks/Week Comments Yes 0 (1 standard drink = 0.6 oz pur e alcohol) rarely [facility] Utilities Answer Date Recorded In the past 12 months has [email or web address] electric, gas, oil, or water company threatened [...] on file Legal Sex Male 2:23 AM CUSTOMS VERIFIER Gender Identity Not on file Sexual Orientation [...] on filedocumented in this encounter Care Teams Ripsaw Matcher Relationship Specialty Start Date End Date Jeff Strickland MD [facility] [address] [place] [id number] PCP - General Family Medicine 04/02/18 Chan Nicholas MD [facility] [address] [address] Consulting Physician Gastroenterology 11/24/18 Alan Mccall MD [facility] [address] [address] Referring Physician Nephrology 11/24/18 Pepito Haro MD PhD [address] [place] [address] Consulting Physician Neurosurgery 12/03/22 Solange Guido MD [address] [facility] [address] [place] [address] Referring Physician Cardiovascular Disease 07/23/23 documented as of this encounter
--- OUTSIDE RECORDS SUMMARY | 2024-11-04 12:37 | XMS_ITS | Encounter Summary ---
Author Organization [facility] Address [address] [place] [address] Care Team Providers Care Architecture Internship Name Role Phone Deandre Bojorquez MD Unavailable [phone] Jeff Strickland MD Primary Care Provider [phone] Encounter Details Date Type Department Care Team (Late st Contact Info) Description 03/12/2024 Lab Requisition [facility] MAIN LAB [address] [place] [phone] Alan Davenport MD [facility] [place] [address] Social History Tobacco Use Types Packs/Day Years Used Date Smoking Tobacco: Never Smokeless Tobacco: Never Alcohol Use Standard Drinks/Week Comments Not Currently 0 (1 standard drink = 0.6 oz pur e alcohol) socially in past Sex and Gender Information Value Date Recorded Sex Assigned at Male 07/02/2021 2:37 PM CDT Legal Sex Male 10:14 PM OUTREACH LIAISON Gender Identity Male 07/02/2021 2:37 PM CDT [facility] [address] [facility], [place] [address] Marbin Flores MD [address] [facility] DIV [place] [address] Niraj Turner MD [address] [facility] 2L [place] [address] documented as of this encounter Procedures Procedure Name Priority Date/Time Associated Diagnosis Comments HOLD HLA SPECIMEN Routine 03/05/2024 1:4 0 PM OUTREACH LIAISON documented in this encounter Results * HOLD HLA SPECIMEN (03/05/2024 1:40 PM OUTREACH LIAISON) Hold HLA Specimen 03/12/2024 3:00 PM OUTREACH LIAISON [facility] ([facility]) Comment:The Hold HLA specime n has been received into the lab and will be held for 5 years at 4 degrees. Blood BLOOD SPECIMEN / Unknown 03/05/2024 1:40 PM OUTREACH LIAISON 03/12/2024 1:40 PM OUTREACH LIAISON Alan Davenport MD LAB - BLOOD BANK ORDERABLES F inal Result [facility] [address] [place] [address], [facility] documented in this encounter Visit Diagnoses Not on filedocumented in this encounter Additional Health Concerns Infection Onset Date Last Indicated Resolved Time COVID-19 Under Investigation 09/13/2024 09/13/2024 09/13/2024 6:36 AM CDT documented as of this encounter Care Teams Architecture Internship Relationship Specialty Start Date End Date Jeff Strickland MD [address] [place] [address] PCP - General 03/05/18 [place] [address] [address] Orthopedic Surgery 03/28/17 documented as of this encounter
--- OUTSIDE RECORDS SUMMARY | 2024-11-04 12:37 | XMS_ITS | Encounter Summary ---
Author Organization [facility] Address [facility] [place] [address] Care Team Providers Care Heat Treater Head Name Role Phone Deandre Bojorquez MD Unavailable [phone] Jeff Strickland MD Primary Care Provider [phone] Encounter Details Date Type Department Care Team (Late st Contact Info) Description 04/10/2023 Lab Requisition [facility] MAIN LAB [address] [place] [phone] Alan Davenport MD [facility] OF ABD [place] [address] Social History Tobacco Use Types Packs/Day Years Used Date Smoking Tobacco: Never Smokeless Tobacco: Never Alcohol Use Standard Drinks/Week Comments Not Currently 0 (1 standard drink = 0.6 oz pur e alcohol) socially in past Sex and Gender Information Value Date Recorded Sex Assigned at Male 07/02/2021 2:37 PM CDT Legal Sex Male 10:14 PM SUPERVISOR PRE WAVE Gender Identity Male 07/02/2021 2:37 PM CDT [...] Description 12/06/2024 10:40 AM CDT Office Visit [facility]ician Group - Endocrinology [address] [facility], [place] [address] Marbin Flores MD 1201 [facility] DIV OF ABD [place] [address] Niraj Turner MD 12[address] [facility] 2L [place] [address] documented as of this encounter Procedures Procedure Name Priority Date/Time Associated Diagnosis Comments HOLD HLA SPECIMEN Routine 04/02/2023 3:0 1 PM SUPERVISOR PRE WAVE documented in this encounter Results * HOLD HLA SPECIMEN (04/02/2023 3:01 PM SUPERVISOR PRE WAVE) Hold HLA Specimen 04/10/2023 4:01 PM SUPERVISOR PRE WAVE [facility] ([facility]) Comment:The Hold HLA specime n has been received into the lab and will be held for 5 years at 4 degrees. Blood BLOOD SPECIMEN / Unknown 04/02/2023 3:01 PM SUPERVISOR PRE WAVE 04/10/2023 3:01 PM SUPERVISOR PRE WAVE Alan Davenport MD LAB - BLOOD BANK ORDERABLES F inal Result [facility] [address] [place] [address], [facility] documented in this encounter Visit Diagnoses Not on filedocumented in this encounter Additional Health Concerns Infection Onset Date Last Indicated Resolved Time COVID-19 Under Investigation 09/13/2024 09/13/2024 09/13/2024 6:36 AM CDT documented as of this encounter Care Teams Heat Treater Head Relationship Specialty Start Date End Date Jeff Strickland MD [address] [place] [address] PCP - General 03/05/18 [place] [address] [address] Orthopedic Surgery 03/28/17 documented as of this encounter
--- OUTSIDE RECORDS SUMMARY | 2024-11-04 12:37 | XMS_ITS | Encounter Summary ---
Author Organization [facility] Address [address] [place] [address] Care Team Providers Care Manager Quality Compliance Name Role Phone Deandre Bojorquez MD Unavailable [phone] Jeff Strickland MD Primary Care Provider [phone] Encounter Details Date Type Department Care Team (Late st Contact Info) Description 02/07/2023 Lab Requisition [facility] MAIN LAB [address] [place] [phone] Alan Davenport MD [facility]1 [facility] OF [place]BD [place] [address] Social History Tobacco Use Types Packs/Day Years Used Date Smoking Tobacco: Never Smokeless Tobacco: Never Alcohol Use Standard Drinks/Week Comments Not Currently 0 (1 standard drink = 0.6 oz pur e alcohol) socially in past Sex and Gender Information Value Date Recorded Sex Assigned at Male 07/02/2021 2:37 PM CDT Legal Sex Male 10:14 PM FIRST MATE Gender Identity Male 07/02/2021 2:37 PM CDT [...] Description 12/06/2024 10:40 AM CDT Office Visit [facility] Physician Group - Endocrinology [address] [facility], [place] [address] Marbin Flores MD [address] [facility] DIV OF [place] [address] Niraj Turner MD 12[address] [facility] 2L [place] [address] documented as of this encounter Procedures Procedure Name Priority Date/Time Associated Diagnosis Comments HOLD HLA SPECIMEN Routine 2023 7:5 8 AM FIRST MATE documented in this encounter Results * HOLD HLA SPECIMEN (2023 7:58 AM FIRST MATE) Hold HLA Specimen 02/07/2023 9:01 AM FIRST MATE [facility] (NOR[facility]) Comment:The Hold HLA specime n has been received into the lab and will be held for 5 years at 4 degrees. Blood BLOOD SPECIMEN / Unknown 2023 7:58 AM FIRST MATE 02/07/2023 7:59 AM FIRST MATE Alan Davenport MD LAB - BLOOD BANK ORDERABLES F inal Result [facility] [address] [place] [address], [facility] documented in this encounter Visit Diagnoses Not on filedocumented in this encounter Additional Health Concerns Infection Onset Date Last Indicated Resolved Time COVID-19 Under Investigation 09/13/2024 09/13/2024 09/13/2024 6:36 AM CDT documented as of this encounter Care Teams Manager Quality Compliance Relationship Specialty Start Date End Date Jeff Strickland MD [address] [place] [address] PCP - General 03/05/18 [place] [address] [address] Orthopedic Surgery 03/28/17 documented as of this encounter
--- OUTSIDE RECORDS SUMMARY | 2024-11-04 12:37 | XMS_ITS | Encounter Summary ---
Author Organization [facility] Address [address] [place] [address] Care Team Providers Care Sale Professional Digital Marketing Name Role Phone Deandre Bojorquez MD Unavailable [phone] Jeff Strickland MD Primary Care Provider [phone] Encounter Details Date Type Department Care Team (Late st Contact Info) Description 02/04/2024 Lab Requisition [facility] MAIN LAB [address] [place] [phone] Alan Davenport MD [facility]1 [facility] OF ABD [place] [address] Social History Tobacco Use Types Packs/Day Years Used Date Smoking Tobacco: Never Smokeless Tobacco: Never Alcohol Use Standard Drinks/Week Comments Not Currently 0 (1 standard drink = 0.6 oz pur e alcohol) socially in past Sex and Gender Information Value Date Recorded Sex Assigned at Male 07/02/2021 2:37 PM CDT Legal Sex Male 10:14 PM SUPERVISOR TREATING AND PUMPING Gender Identity Male 07/02/2021 2:37 PM CDT [...] Description 12/06/2024 10:40 AM CDT Office Visit [facility] Physician Group - Endocrinology [address] [facility], [place] [address] Marbin Flores MD [address] [facility] DIV OF ABD [place] [address] Niraj Turner MD [address] [facility] 2L [place] [address] documented as of this encounter Procedures Procedure Name Priority Date/Time Associated Diagnosis Comments HOLD HLA SPECIMEN Routine 01/27/2024 3:2 3 PM SUPERVISOR TREATING AND PUMPING documented in this encounter Results * HOLD HLA SPECIMEN (01/27/2024 3:23 PM SUPERVISOR TREATING AND PUMPING) Hold HLA Specimen 02/04/2024 4:31 PM SUPERVISOR TREATING AND PUMPING [facility] ([facility]) Comment:The Hold HLA specime n has been received into the lab and will be held for 5 years at 4 degrees. Blood BLOOD SPECIMEN / Unknown 01/27/2024 3:23 PM SUPERVISOR TREATING AND PUMPING 02/04/2024 3:23 PM SUPERVISOR TREATING AND PUMPING Alan Davenport MD LAB - BLOOD BANK ORDERABLES F inal Result [facility] [address] [place] [address], [facility] documented in this encounter Visit Diagnoses Not on filedocumented in this encounter Additional Health Concerns Infection Onset Date Last Indicated Resolved Time COVID-19 Under Investigation 09/13/2024 09/13/2024 09/13/2024 6:36 AM CDT documented as of this encounter Care Teams Sale Professional Digital Marketing Relationship Specialty Start Date End Date Jeff Strickland MD [address] [place] [address] PCP - General 03/05/18 [place] [address] [address] Orthopedic Surgery 03/28/17 documented as of this encounter
--- OUTSIDE RECORDS SUMMARY | 2024-11-04 12:37 | XMS_ITS | Encounter Summary ---
Author Organization [facility] Healthcare Address [address] [place] [address] Care Team Providers Care Mother Baby Rn Name Role Phone Jeff Strickland MD Primary Care Provider Chan Nicholas MD Unavailable [phone] Alan Mccall MD Unavailable Pepito Haro MD PhD Unavailable [phone] Solange Guido MD Unavailable [phone] Encounter Details Date Type Department Care Team (Late st Contact Info) Description 07/26/2024 Orders Only [facility] Health Information Management [address] [place] [address] Scanning, Provider Social History Tobacco Use Types Packs/Day Years Used Date Smoking Tobacco: Never Smokeless Tobacco: Never Alcohol Use Standard Drinks/Week Comments Yes 0 (1 standard drink = 0.6 oz pur e alcohol) rarely [facility] Utilities Answer Date Recorded In the past 12 months has [employer] electric, gas, oil, or water company threatened [...] on file Legal Sex Male 2:23 AM THEATRE DIRECTOR Gender Identity Not on file Sexual Orientation [...] on filedocumented in this encounter Care Teams Mother Baby Rn Relationship Specialty Start Date End Date Jeff Strickland MD [address] [place] [address] [address] [address] PCP - General Family Medicine 04/02/18 Chan Nicholas MD [facility] [address] [address] Consulting Physician Gastroenterology 11/24/18 Alan Mccall MD [address] [place] [address] [address] [address] Referring Physician Nephrology 11/24/18 Pepito Haro MD PhD [facility] [address] [place] [id number] Consulting Physician Neurosurgery 12/03/22 Solange Guido MD [address] [facility] [address] [place] [address] Referring Physician Cardiovascular Disease 07/23/23 documented as of this encounter
--- OUTSIDE RECORDS SUMMARY | 2024-11-04 12:37 | XMS_ITS | Encounter Summary ---
Author Organization [facility] Address [facility] [place] [address] Care Team Providers Care Visual Display Associate Name Role Phone Deandre Bojorquez MD Unavailable [phone] Jeff Strickland MD Primary Care Provider [phone] Encounter Details Date Type Department Care Team (Late st Contact Info) Description 05/29/2023 Lab Requisition [facility] MAIN LAB [address] [place] [phone] Alan Davenport MD [facility] [address] [facility] [place] [address] Social History Tobacco Use Types Packs/Day Years Used Date Smoking Tobacco: Never Smokeless Tobacco: Never Alcohol Use Standard Drinks/Week Comments Not Currently 0 (1 standard drink = 0.6 oz pur e alcohol) socially in past Sex and Gender Information Value Date Recorded Sex Assigned at Male 07/02/2021 2:37 PM CDT Legal Sex Male 10:14 PM SUPERVISOR SOLDERING Gender Identity Male 07/02/2021 2:37 PM CDT [...] [facility] - Endocrinology [address] [facility], [place] [address] Marbin Flores MD 12[address] [facility] DIV [place] [address] Niraj Turner MD 12[address] [facility] 2L [place] [address] documented as of this encounter Procedures Procedure Name Priority Date/Time Associated Diagnosis Comments HOLD HLA SPECIMEN Routine 05/21/2023 9:2 4 AM CDT documented in this encounter Results * HOLD HLA SPECIMEN (05/21/2023 9:24 AM CDT) Hold HLA Specimen 05/29/2023 10:30 AM CDT [facility] ([facility]TH) Comment:The Hold HLA specime n has been received into the lab and will be held for 5 years at 4 degrees. Blood BLOOD SPECIMEN / Unknown 05/21/2023 9:24 AM CDT 05/29/2023 9:24 AM CDT Alan Davenport MD LAB - BLOOD BANK ORDERABLES F inal Result [facility] ([facility]) [address] [place] [address], [facility] documented in this encounter Visit Diagnoses Not on filedocumented in this encounter Additional Health Concerns Infection Onset Date Last Indicated Resolved Time COVID-19 Under Investigation 09/13/2024 09/13/2024 09/13/2024 6:36 AM CDT documented as of this encounter Care Teams Visual Display Associate Relationship Specialty Start Date End Date Jeff Strickland MD [address] [place] [address] PCP - General 03/05/18 [place] [address] [place] [address] Orthopedic Surgery 03/28/17 documented as of this encounter
--- OUTSIDE RECORDS SUMMARY | 2024-11-04 12:37 | XMS_ITS | Encounter Summary ---
Author Organization [facility] Address [address] [place] [address] Care Team Providers Care Engine Lathe Set Up Operator Name Role Phone Deandre Bojorquez MD Unavailable [phone] Jeff Strickland MD Primary Care Provider [phone] Encounter Details Date Type Department Care Team (Late st Contact Info) Description 07/31/2023 Lab Requisition [facility] MAIN LAB [address] [place] [phone] Alan Davenport MD 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 Gender Identity Male 07/02/2021 2:37 PM CDT [...] Description 12/06/2024 10:40 AM CDT Office Visit [facility] - Endocrinology [address] [facility], [place] [address] Marbin Flores MD 12[address] [facility] DIV [place] [address] Niraj Turner MD 1225 [facility] 2L [place] [address] documented as of this encounter Procedures Procedure Name Priority Date/Time Associated Diagnosis Comments HOLD HLA SPECIMEN Routine 07/23/2023 2:0 5 PM CDT documented in this encounter Results * HOLD HLA SPECIMEN (07/23/2023 2:05 PM CDT) Hold HLA Specimen 07/31/2023 3:32 PM CDT [facility] (NORTH) Comment:The Hold HLA specime n has been received into the lab and will be held for 5 years at 4 degrees. Blood BLOOD SPECIMEN / Unknown 07/23/2023 2:05 PM CDT 07/31/2023 2:06 PM CDT Alan Davenport MD LAB - BLOOD BANK ORDERABLES F inal Result [facility] ([facility]) [address] [place] [address], [facility] documented in this encounter Visit Diagnoses Not on filedocumented in this encounter Additional Health Concerns Infection Onset Date Last Indicated Resolved Time COVID-19 Under Investigation 09/13/2024 09/13/2024 09/13/2024 6:36 AM CDT documented as of this encounter Care Teams Engine Lathe Set Up Operator Relationship Specialty Start Date End Date Jeff Strickland MD [address] [place] [address] PCP - General 03/05/18 [place] [address] [place] [address] Orthopedic Surgery 03/28/17 documented as of this encounter
--- OUTSIDE RECORDS SUMMARY | 2024-11-04 12:37 | XMS_ITS | Encounter Summary ---
Author Organization [facility] Address [address] [place] [address] Care Team Providers Care Electro Mechanical Solar Technician Name Role Phone Deandre Bojorquez MD Unavailable [phone] Jeff Strickland MD Primary Care Provider [phone] Encounter Details Date Type Department Care Team (Late st Contact Info) Description 10/28/2023 Lab Requisition [facility] MAIN LAB [address] [place] [phone] Alan Davenport MD [facility][note 3]1 [facility] [place] [address] Social History Tobacco Use Types Packs/Day Years Used Date Smoking Tobacco: Never Smokeless Tobacco: Never Alcohol Use Standard Drinks/Week Comments Not Currently 0 (1 standard drink = 0.6 oz pur e alcohol) socially in past Sex and Gender Information Value Date Recorded Sex Assigned at Male 07/02/2021 2:37 PM CDT Legal Sex Male 10:14 PM MANAGER SKILLED Gender Identity Male 07/02/2021 2:37 PM CDT [...] Description 12/06/2024 10:40 AM CDT Office Visit [facility] - Endocrinology [address] [facility], [place] [address] Marbin Flores MD [address] [facility] DIV [place] [address] Niraj Turner MD 12[address] [facility] 2L [place] [address] documented as of this encounter Procedures Procedure Name Priority Date/Time Associated Diagnosis Comments HOLD HLA SPECIMEN Routine 10/22/2023 3:5 0 PM CDT documented in this encounter Results * HOLD HLA SPECIMEN (10/22/2023 3:50 PM CDT) Hold HLA Specimen 10/28/2023 5:00 PM CDT [facility] (NORTH) Comment:The Hold HLA specime n has been received into the lab and will be held for 5 years at 4 degrees. Blood BLOOD SPECIMEN / Unknown 10/22/2023 3:50 PM CDT 10/28/2023 3:50 PM CDT Alan Davenport MD LAB - BLOOD BANK ORDERABLES F inal Result [facility] ([facility]) [address] [place] [address], [facility] documented in this encounter Visit Diagnoses Not on filedocumented in this encounter Additional Health Concerns Infection Onset Date Last Indicated Resolved Time COVID-19 Under Investigation 09/13/2024 09/13/2024 09/13/2024 6:36 AM CDT documented as of this encounter Care Teams Electro Mechanical Solar Technician Relationship Specialty Start Date End Date Jeff Strickland MD [address] [place] [address] PCP - General 03/05/18 [place] [address] [place] [address] Orthopedic Surgery 03/28/17 documented as of this encounter
--- OUTSIDE RECORDS SUMMARY | 2024-11-04 12:37 | XMS_ITS | Encounter Summary ---
Author Organization [facility] Address [facility] [place] [address] Care Team Providers Care Tube Worker Name Role Phone Deandre Bojorquez MD Unavailable [phone] Jeff Strickland MD Primary Care Provider [phone] Encounter Details Date Type Department Care Team (Late st Contact Info) Description 11/21/2023 Lab Requisition [facility] MAIN LAB [address] [place] [phone] Alan Davenport MD [facility]1 [facility] OF ABD [place] [address] Social History Tobacco Use Types Packs/Day Years Used Date Smoking Tobacco: Never Smokeless Tobacco: Never Alcohol Use Standard Drinks/Week Comments Not Currently 0 (1 standard drink = 0.6 oz pur e alcohol) socially in past Sex and Gender Information Value Date Recorded Sex Assigned at Male 07/02/2021 2:37 PM CDT Legal Sex Male 10:14 PM CCNP Gender Identity Male 07/02/2021 2:37 PM CDT [...] 12/06/2024 10:40 AM CDT Office Visit [facility] - Endocrinology [address] [facility], [place] [address] Marbin Flores MD 12[address] [facility] DIV OF ABD [place] [address] Niraj Turner MD 12[address] [facility] 2L [place] [address] documented as of this encounter Procedures Procedure Name Priority Date/Time Associated Diagnosis Comments HOLD HLA SPECIMEN Routine 11/18/2023 12: 16 PM CDT documented in this encounter Results * HOLD HLA SPECIMEN (11/18/2023 12:16 PM CDT) Hold HLA Specimen 11/21/2023 1:31 PM CDT [facility]OR[facility] (NORTH) Comment:The Hold HLA specime n has been received into the lab and will be held for 5 years at 4 degrees. Blood BLOOD SPECIMEN / Unknown 11/18/2023 12:16 PM CDT 11/21/2023 12:17 PM CDT Alan Davenport MD LAB - BLOOD BANK ORDERABLES F inal Result [facility] ([facility]) [address] [place] [address], [facility] documented in this encounter Visit Diagnoses Not on filedocumented in this encounter Additional Health Concerns Infection Onset Date Last Indicated Resolved Time COVID-19 Under Investigation 09/13/2024 09/13/2024 09/13/2024 6:36 AM CDT documented as of this encounter Care Teams Tube Worker Relationship Specialty Start Date End Date Jeff Strickland MD [address] [place] [address] PCP - General 03/05/18 [place] [address] [place] [address] Orthopedic Surgery 03/28/17 documented as of this encounter
--- OUTSIDE RECORDS SUMMARY | 2024-11-04 12:37 | XMS_ITS | Encounter Summary ---
Author Organization [facility] Address [address] [place] [address] Care Team Providers Care Pharmacy Consultant Name Role Phone Deandre Bojorquez MD Unavailable [phone] Jeff Strickland MD Primary Care Provider [phone] Encounter Details Date Type Department Care Team (Late st Contact Info) Description 09/30/2023 Lab Requisition [facility] MAIN LAB [address] [place] [phone] Alan Davenport MD [facility]1 [facility] OF ABD [place] [address] Social History Tobacco Use Types Packs/Day Years Used Date Smoking Tobacco: Never Smokeless Tobacco: Never Alcohol Use Standard Drinks/Week Comments Not Currently 0 (1 standard drink = 0.6 oz pur e alcohol) socially in past Sex and Gender Information Value Date Recorded Sex Assigned at Male 07/02/2021 2:37 PM CDT Legal Sex Male 10:14 PM HARD CANDY SPINNER Gender Identity Male 07/02/2021 2:37 PM CDT [...] Description 12/06/2024 10:40 AM CDT Office Visit [facility] - Endocrinology [address] [facility], [place] [address] Marbin Flores MD [address] [facility] DIV OF [place] [address] Niraj Turner MD 12[address] [facility] 2L [place] [address] documented as of this encounter Procedures Procedure Name Priority Date/Time Associated Diagnosis Comments HOLD HLA SPECIMEN Routine 09/24/2023 3:2 7 PM CDT documented in this encounter Results * HOLD HLA SPECIMEN (09/24/2023 3:27 PM CDT) Hold HLA Specimen 09/30/2023 4:32 PM CDT [facility]OR[facility] (NORTH) Comment:The Hold HLA specime n has been received into the lab and will be held for 5 years at 4 degrees. Blood BLOOD SPECIMEN / Unknown 09/24/2023 3:27 PM CDT 09/30/2023 3:27 PM CDT Alan Davenport MD LAB - BLOOD BANK ORDERABLES F inal Result [facility] ([facility]) [address] [place] [address], [facility] documented in this encounter Visit Diagnoses Not on filedocumented in this encounter Additional Health Concerns Infection Onset Date Last Indicated Resolved Time COVID-19 Under Investigation 09/13/2024 09/13/2024 09/13/2024 6:36 AM CDT documented as of this encounter Care Teams Pharmacy Consultant Relationship Specialty Start Date End Date Jeff Strickland MD [address] [place] [address] PCP - General 03/05/18 [place] [address] [place] [address] Orthopedic Surgery 03/28/17 documented as of this encounter
--- OUTSIDE RECORDS SUMMARY | 2024-11-04 12:37 | XMS_ITS | Clinical Summary ---
Author Organization [facility] Address [address] [place] [address] Care Team Providers Care Gold Prospector Name Role Phone Jeff Strickland MD Primary [...] mouth daily. Active nystatin-triamc inolone (MYCOLOG II) 142856-9.1 UNIT/GM-% Cream 5 Active ondansetron (ZOFRAN-ODT) 4 [...] 10/29/2024 Telephone [facility] - Cardiology [facility] #2 [place] [address] Suly Smith APRN, MOLD ENGRAVER 10/15/2024 Telephone [facility] Cardiology [facility] #[address] [place] [address] Hannah Goodman MD 10/14/2024 2:40 PM CDT Clinical Support [facility] #2 [place] [address] [facility] Cardiology Dressing change (Primary Dx) Discharge [...] Medical Group - Cardiology - [facility] #[address] [facility] [place] [address] Hannah Goodman MD 2 [facility] NORY [facility] [address] [place] [address] 04/11/2025 11:30 AM DISTRICT ADMINISTRATOR Office Visit [facility] - Cardiology - Joaquin #2 [place] [address] Maylin Cutler, 2 [facility] [address] [place] [address] Health Maintenance Due Date Last Done Comments [...] topic Insurance MEDICARE C AETNA Care Teams Gold Prospector Relationship Specialty Start Date End Date Jeff Strickland MD [address] [place] [address] PCP - General Family Medicine 10/14/24
--- OUTSIDE RECORDS SUMMARY | 2024-11-04 12:38 | XMS_ITS | Clinical Summary ---
Author Organization [facility] Address [address] [place] [address] Phone Care Team Providers Care Fishing Lure Assembler Name Role Phone Jeff Strickland MD Primary Care Provider [phone] Allergies No known active allergies Medications pantoprazole [...] tablet Take 112 mcg by mouth daily carding utility tender. Active aspirin (ANGELLA) 325 mg tablet Take 325 mg by mouth daily. Active Vit C-Vit H-Pokulb-IbBq-L utein (PRESERVISION) 226 mg-200 unit -5 mg-0.8 [...] Comments Blood Pressure 167/77 02/04/2019 9:16 AM MEDICAL SUPPLY TECHNICIAN Pulse 64 02/04/2019 9:16 AM MEDICAL SUPPLY TECHNICIAN Temperature 36.5 C (97.7 F) 02/04/2019 9:16 AM MEDICAL SUPPLY TECHNICIAN Respiratory Rate 16 02/04/2019 9:16 AM MEDICAL SUPPLY TECHNICIAN Oxygen Saturation 97% 02/04/2019 9:16 AM MEDICAL SUPPLY TECHNICIAN Inhaled Oxygen Concentration - - Weight 113.4 kg (250 lb) 02/04/2019 9:16 AM MEDICAL SUPPLY TECHNICIAN Height 175.3 cm (5' 9) 02/04/2019 9:16 AM MEDICAL SUPPLY TECHNICIAN Body Mass Index 36.92 02/04/2019 9:16 AM MEDICAL SUPPLY TECHNICIAN Plan of Treatment Health Maintenance Due [...] ACCESS/TRUE BLUE PPO AETNA MEDICARE SUPPLEMENT PPO [facility] BLUE ACCESS/TRUE BLUE PPO Care Teams Fishing Lure Assembler Relationship Specialty Start Date End Date Jeff Strickland MD [address] [facility] [address] [place] [address] PCP - General Family Practice 01/01/19
--- OUTSIDE RECORDS SUMMARY | 2024-11-04 12:38 | XMS_ITS | Clinical Summary ---
Author Organization [facility] Address [address] [address] Phone Care Team Providers Care Adult Health Clinical Nurse Specialist Name Role Phone Jeff Strickland MD Primary Care Provider [phone] Allergies No known active allergies Medications levothyroxine [...] tablet 3 0 Active Continuous Blood Gluc Rehabilitation Engineer (FreeStyle Em [place]) device 1 each daily 0 Active Continuous Blood Gluc Sensor (FreeStyle Em Sensor System) misc 1 each once every 2 weeks 0 Active Lancets (OneTouch Delica Plus [id number]) misc OneTouch Delica Plus Lancet 33 gauge [...] 11/10/2019 Overview (12/17/2019): Kendall Carl 1955 Referring Sales Engineer Engineered Products: Alan Mccall Dialysis Info: NOD GFR 13 Type: Time: (Not currently on dialysis) days Blood Type: O NEG Body mass index is 37.36 kg/m . ALERTS Furniture Sander: needs to establish Past Medical History: Diagnosis Date Arthropathy RA. Dr Strickland manages. 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 Becerra in [place]. CKD (chronic kidney disease), stage V Community acquired pneumonia 2018 [facility] hospitalized. Diabetes mellitus 20 years. Lantus pen. Esophageal reflux takes med Hypercholesteremia 5-10 yrs meds Hypertension takes meds Hypothyroidism meds 20 years Kidney stones 5-6 years ago had 2 in the same year. Malignancy right kidney 2012 Obstructive sleep apnea 3 years. [facility]. Angela remember doctors name Renal cell [...] impression of this social services specialist that Kendlal Gillris has several positive factors for Kidney transplant candidacy from a psychosocial perspective. Patient appears to have appropriate knowledge of illness. Patient has sufficient insurance coverage and stable financial situation for post transplant needs. No concerns regarding substance abuse, legal issues, or mental health needs. Patient has adequate support system and appropriate discharge plan. Plan: laboratory worker to provide supportive services as needed. Patient appears to be a reasonable candidate for transplant from a psychosocial perspective. -Post transplant arrangement forms are needed prior to being listed. -Updated toxicology results needed, per protocol Psychiatric Consult Recommended: No Transplant Exercise Instructor: Joy Tam LCSW RD: 11/09/2019 BMI= 36.2, [...] my fitness pal or my food life skills coach) - Consume no more than 2000 [...] nephrectomy. 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 [id number] Immunizations Immunization Administration Dates Next Due Influenza [...] Insurance AETNA PM INTERFACED INSURANCE Care Teams Adult Health Clinical Nurse Specialist Relationship Specialty Start Date End Date Jeff Strickland MD [address] [facility] 162 [facility] 120 [place] [address] PCP - General Internal Medicine 07/15/18
--- OUTSIDE RECORDS SUMMARY | 2024-11-04 12:38 | XMS_ITS | Encounter Summary ---
Author Organization [facility] Address [address] [place] [address] Care Team Providers Care Nuclear Equipment Sales Engineer Name Role Phone Deandre Bojorquez MD Unavailable [phone] Jeff Strickland MD Primary Care Provider [phone] Encounter Details Date Type Department Care Team (Late st Contact Info) Description 09/24/2024 Results Follow-Up [facility] Early Admission Unit [address] [place] [phone] Angel Crook MD [address] [place] [address] Social History Tobacco Use Types Packs/Day Years [...] and heating? Not hard at all 09/24/2024 [facility] [place] of Occupat ional Health - Occupational Stress [...] any time in the past 12 m [facility], were you homeless or living in a senior care (including now)? 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 Gender Identity Male 07/02/2021 2:37 PM [...] [facility] [address] [place] [address], [place] [address] Marbin Flores MD [address] [facility] DIV OF ABD [place] [address] Niraj Turner MD 1225 [facility] 2L [place] [address] documented as of this encounter Visit Diagnoses Not on filedocumented in this encounter Care Teams Nuclear Equipment Sales Engineer Relationship Specialty Start Date End Date Jeff Strickland MD [address] [place] [address] PCP - General 03/05/18 [place] [address] [place] [address] Orthopedic Surgery 03/28/17 documented as of this encounter
--- OUTSIDE RECORDS SUMMARY | 2024-11-04 12:38 | XMS_ITS | Clinical Summary ---
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 ACT LR - POCT ([facility]) Routine 08/18/2024 1:24 PM CDT ACT LR - POCT ([facility]) Routine 08/18/2024 12:57 PM CDT ACT LR - POCT ([facility]) Routine 08/18/2024 12:13 PM CDT ANGIOPLASTY PERIPHERAL ARTERY 08/18/2024 10:49 AM CDT 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) GLUCOSE - POINT OF CARE Routine 08/18/2024 10:15 AM CDT BASIC METABOLIC PANEL (CALCIUM TOTAL) ANDIE 08/18/2024 10:11 AM CDT 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 Baseline to 1 hour specimen collection interval exceeded. Blood BLOOD SPECIMEN / Unknown Venipuncture / Unknown 10/28/2024 2:31 AM CDT 10/28/2024 2:37 AM CDT Savanna Mcfarlane MD LAB - CHEMISTRY ORDERABLES nal Result [address] [address], [place] [phone] * LACTIC ACID BLOOD REFLEX TO REPEAT (10/28/2024 2:31 AM CDT) Only the most recent of5 resultswithin the time period is included. Lactic Acid-Stat 1.9 <=2.0 mmol/L 10/28/2024 3:06 AM CDT [facility] Blood BLOOD SPECIMEN / Unknown Venipuncture / Unknown 10/28/2024 2:31 AM CDT 10/28/2024 2:37 AM CDT Savanna Mcfarlane MD LAB - CHEMISTRY ORDERABLES nal Result [address] [address], [place] [phone] * XR Chest 2Vw (10/27/2024 11:58 PM CDT) Only the most recent of4 resultswithin the time period is included. Anatomical Region Laterality Modality Chest Digital Radiogra phy 10/28/2024 12:0 2 AM CDT Narrative 10/28/2024 3:32 AM CDT PROCEDURE: XR CHEST 2VW, DATE/TIME OF EXAM: 10/27/2024 11:58 PM, LOCATION [facility] INDICATION: R07.9: Chest pain, unspecified type ADDITIONAL [...] > Dictated by Branden Jha MD, (residential real estate agent). > Dictated by Reject Opener I, Blake Plasencia MD have personally reviewed and interpreted this examination/study. > Interpreting Provider: Blake Plasencia MD on 10/28/2024 3:32 AM Procedure Note Blake Plasencia MD - 10/28/2024 PROCEDURE: XR CHEST 2VW, DATE/TIME OF EXAM: 10/27/2024 11:58 PM, LOCATION [facility] INDICATION: R07.9: Chest pain, unspecified type ADDITIONAL [...] > Dictated by Branden Jha MD, (residential real estate agent). > Dictated by Reject Opener I, Blake Plasencia MD have personally reviewed and interpreted this examination/study. > Interpreting Provider: Blake Plasencia MD on 10/28/2024 3:32 AM Savanna Mcfarlane MD DIAGNOSTIC IMAGING ORDERABLES Final Result * (ABNORMAL) TROPONIN-I HIGH SENSITIVE BASELINE + 1HR (10/27/2024 11:53 PM CDT) Only the most recent of8 resultswithin the time period is included. [facility] Troponin I High Sensitive 72(H) <=35 ng/L 10/28/2024 12:49 AM [facility] Blood BLOOD SPECIMEN / Unknown Venipuncture / Unknown 10/27/2024 11:53 PM CDT 10/28/2024 12:12 AM CDT us Savanna Mcfarlane MD LAB - CHEMISTRY ORDERABLES [facility] Result [facility] [address] [place] [address], [facility] [phone] * (ABNORMAL) CBC W AUTO DIFFERENTIAL (10/27/2024 11:53 PM CDT) Only the most recent of11 resultswithin the time period is included. [facility] WBC 7.8 4.0 - 10.7 x10E9/L 10/28/2024 12:26 AM [facility] RBC Count 3.31(L) 4.30 - 5.80 x10E12/L 10/28/2024 12:26 AM [facility] Hemoglobin 9.0(L) 13.3 - 17.5 g/dL 10/28/2024 12:26 AM [facility] Hematocrit 27.9(L) 38.7 - 51.1 % 10/28/2024 12:26 AM [facility] MCV 84.3 80.0 - 98.0 fL 10/28/2024 12:26 AM [facility] MCH 27.2 26.7 - 33.6 pg 10/28/2024 12:26 AM [facility] MCHC 32.3 31.7 - 36.3 g/dL 10/28/2024 12:26 AM [facility] RDW-CV 15.9(H) 11.3 - 14.8 % 10/28/2024 12:26 AM [facility] Platelet Count 187 150 - 420 x10E9/L 10/28/2024 12:26 AM [facility] MPV 10.2 7.8 - 11.4 fL 10/28/2024 12:26 AM [facility] Neutrophil % 67.0 41.0 - 74.0 % 10/28/2024 12:26 AM [facility] Lymphocyte % 16.4(L) 17.0 - 47.0 % 10/28/2024 12:26 AM [facility] Monocyte % 14.0(H) 3.0 - 11.0 % 10/28/2024 12:26 AM [facility] Eosinophil % 1.9 0.0 - 7.0 % 10/28/2024 12:26 AM [facility] Basophil % 0.1 0.0 - 1.6 % 10/28/2024 12:26 AM [facility] Immature Granulocytes % 0.6 0.0 - 1.0 % 10/28/2024 12:26 AM [facility] Neutrophil Absolute 5.23 1.60 - 7.50 x10E9/L 10/28/2024 12:26 AM [facility] Lymphocyte Absolute 1.28 1.00 - 4.40 x10E9/L 10/28/2024 12:26 AM [facility] Monocyte Absolute 1.09(H) 0.15 - 1.00 x10E9/L 10/28/2024 12:26 AM [facility] Eosinophil Absolute 0.15 0.00 - 0.60 x10E9/L 10/28/2024 12:26 AM [facility] Basophil Absolute 0.01 0.00 - 0.13 x10E9/L 10/28/2024 12:26 AM [facility] Blood BLOOD SPECIMEN / Unknown Venipuncture / Unknown 10/27/2024 11:53 PM CDT 10/28/2024 12:13 AM CDT us Savanna Mcfarlane MD LAB - HEMATOLOGY ORDERABLES F inal Result [facility] [address] [place] [address], [facility] [phone] * (ABNORMAL) COMPREHENSIVE METABOLIC PANEL (10/27/2024 11:53 PM CDT) Only the most recent of13 resultswithin the time period is included. BUN 34(H) 7 - 26 mg/dL 10/28/2024 12:45 AM [facility] Creatinine 7.86(H) 0.71 - 1.16 mg/dL 10/28/2024 12:45 AM [facility] Sodium 132(L) 136 - 145 mmol/L 10/28/2024 12:45 AM [facility] Potassium 3.5 3.5 - 4.5 mmol/L 10/28/2024 12:45 AM [facility] Chloride 95(L) 98 - 107 mmol/L 10/28/2024 12:45 AM [facility] CO2 25 22 - 29 mmol/L 10/28/2024 12:45 AM [facility] Glucose 104(H) 70 - 99 mg/dL 10/28/2024 12:45 AM [facility] Calcium 8.5 8.4 - 10.2 mg/dL 10/28/2024 12:45 AM [facility] Protein Total 5.6(L) 6.0 - 8.3 g/dL 10/28/2024 12:45 AM [facility] Albumin 2.2(L) 3.4 - 5.0 g/dL 10/28/2024 12:45 AM [facility] Bilirubin Total 0.3 0.2 - 1.2 mg/dL 10/28/2024 12:45 AM [facility] Alkaline Phosphatase 104 40 - 150 U/L 10/28/2024 12:45 AM [facility] ALT 56(H) 5 - 55 U/L 10/28/2024 12:45 AM [facility] AST 48(H) 5 - 34 U/L 10/28/2024 12:45 AM [facility] Anion Gap 12 6 - 16 10/28/2024 12:45 AM [facility] BUN/Creatinine Ratio 4(L) 7 - 23 10/28/2024 12:45 AM [facility] Osmolality Calculated 282 275 - 295 mOsm/kg 10/28/2024 12:45 AM CDT [facility] Albumin/Globulin Ratio 0.6(L) 1.1 - 2.3 10/28/2024 12:45 AM CDT [facility] eGFR by CKD-EPI 7(L) >=90 mL/min/1.7 3 m2 10/28/2024 12:45 AM CDT [facility] Comment:Estimated Glomerular Filtration Rate (eGFR) calculated using the CKD-EPI Creatinine Equation (2020), per the National Kidney Foundation and [place] Society of Nephrology recommendations. Blood BLOOD SPECIMEN / Unknown Venipuncture / Unknown 10/27/2024 11:53 PM CDT 10/28/2024 12:12 AM CDT Savanna Mcfarlane MD LAB - CHEMISTRY ORDERABLES Fi nal Result Performing Organization Address [facility]/ZIP Co de Phone Number [address] [address], [place] [phone] * LIPASE BLOOD (10/27/2024 11:53 PM CDT) Only the most recent of3 resultswithin the time period is included. Lipase 41 8 - 78 U/L 10/28/2024 12:45 AM CDT [facility] Blood BLOOD SPECIMEN / Unknown Venipuncture / Unknown 10/27/2024 11:53 PM CDT 10/28/2024 12:12 AM CDT Narrative [facility] - 10/28/2024 12:45 AM CDT Lipase results from the Matthew Alinity analyzer may not be comparable with other methodologies. Savanna Mcfarlane MD LAB - CHEMISTRY ORDERABLES Fi nal Result Performing Organization Address [facility]/ZIP Co de Phone Number [address] [address], [place] [phone] * (ABNORMAL) PTH INTACT ([facility]) (10/21/2024 1:11 PM CDT) Only the most recent of2 resultswithin the time period is included. PTH Intact 316.8(H) 8.0 - 77.0 pg/mL 10/21/2024 1:56 PM CDT [facility] Blood BLOOD SPECIMEN / Unknown Lab Venipuncture / Unknown 10/21/2024 1:11 PM CDT 10/21/2024 1:23 PM CDT Result [facility] Becky Wilson MD LAB - CHEMISTRY ORDERABLES Fin al Result Performing Organization Address City/[facility]/ZIP Co de Phone Number [address] [address], [facility] [phone] * LAB MISC TEST (10/21/2024 1:11 PM CDT) Test Name PHOSPHO-TAU 217 PLASMA 10/25/2024 12:29 PM CDT [facility] Test Result See Scanned Report 10/25/2024 12:29 PM CDT [email or web address] Comment Ref Lab [place] 10/25/2024 12:29 PM CDT [facility] Blood BLOOD SPECIMEN / Unknown Lab Venipuncture / Unknown 10/21/2024 1:11 PM CDT 10/21/2024 1:15 PM CDT Result [facility] Becky Wilson MD LAB SEND OUT Final Result Performing Organization Address [facility] Co de Phone Number [facility] [address] [place] [address] * MAGNESIUM BLOOD (10/21/2024 1:11 PM CDT) Only the most recent of14 resultswithin the time period is included. Magnesium 1.6 1.6 - 2.6 mg/dL 10/21/2024 1:49 PM CDT [facility] Blood BLOOD SPECIMEN / Unknown Lab Venipuncture / Unknown 10/21/2024 1:11 PM CDT 10/21/2024 1:20 PM CDT Result [facility] Becky Wilson MD LAB - CHEMISTRY ORDERABLES Fin al Result Performing Organization Address City/[facility]/ZIP Co de Phone Number [address] [address], [facility] [phone] * AMMONIA (10/21/2024 1:11 PM CDT) Ammonia 30 <=72 umol/L 10/21/2024 1:32 PM CDT [facility] Blood BLOOD SPECIMEN / Unknown Lab Venipuncture / Unknown 10/21/2024 1:11 PM CDT 10/21/2024 1:15 PM CDT Becky Wilson MD LAB - CHEMISTRY ORDERABLES [facility] Result [facility] [address] [place] [address], [facility] [phone] * CT Head Wo Contrast (10/19/2024 3:03 PM CDT) Only the most recent of4 resultswithin the time period is included. Anatomical Region Laterality Modality Head Computed Tomogra phy 10/19/2024 3:11 PM CDT Impressions 10/19/2024 3:41 PM CDT IMPRESSION: 1.No acute intracranial hemorrhage, territorial infarct, or significant mass effect. Report dictated by Saroj Linda MD, MD (residential real estate agent). > Dictated by Reject Opener I, Raymundo Hanson MD have personally reviewed [...] dictated by Saroj Linda MD, MD (residential real estate agent). > Dictated by Reject Opener I, Raymundo Hanson MD have personally reviewed and interpreted this examination/study. > Interpreting Provider: Raymundo Hanson MD on 10/19/2024 3:41 PM Alfreda Smith PA-C CT ORDERABLES Final Result * EKG 12-LEAD (10/19/2024 2:21 PM CDT) Only the most recent of6 resultswithin the time period is included. Pathologist [facility] Ventricular Rate 64 BPM [facility] Atrial Rate 64 BPM [facility] P-R Interval 146 ms [facility] QRS Duration ms 96 ms [facility] Q-T Interval ms 494 ms [facility] QTC Calculation (Bezet) 509 ms [facility] Calculated P [place] 69 degrees [facility] Calculated R [place] -63 degrees [facility] Calculated T [place] -90 degrees [facility] Interpretation EKG NORMAL SINUS RHYTHM LEFT ANTERIOR FASCICULAR BLOCK T WAVE ABNORMALITY, CONSIDER INFEROLATERAL ISCHEMIA PROLONGED QT ABNORMAL ECG . Confirmed by DOUG CAGLE MD ([id number]) on 10/23/2024 11:38:28 PM [facility] 10/19/2024 2:21 PM CDT 10/23/2024 11:38 PM CDT Alfreda Smith PA-C ECG ORDERABLES Edite d Result - Final [facility] * (ABNORMAL) B-TYPE NATRIURETIC PEPTIDE (10/17/2024 7:33 PM CDT) Only the most recent of3 resultswithin the time period is included. [facility] BNP 471(H) <100 pg/mL 10/17/2024 10:07 PM CDT [facility] Comment: A decision threshold of [...] LAB - CHEMISTRY ORDERABLES Fi nal Result [facility] [address] [place] [address], [facility] [phone] * XR CHEST 1VW PORTABLE (10/09/2024 7:27 PM CDT) Only the most recent of2 resultswithin the time period is included. Anatomical Region Laterality Modality Chest Digital Radiogra phy 10/09/2024 10:4 9 PM CDT Narrative 10/10/2024 1:17 AM CDT PROCEDURE: XR CHEST 1VW PORTABLE, DATE/TIME OF EXAM: 10/09/2024 7:27 PM, LOCATION [facility] INDICATION: R06.02: Short of breath on exertion ADDITIONAL CLINICAL INFORMATION: Ordering Provider Reason For Exam: r/o effusion, pneumonia Technologist Note: Additional: COMPARISON: Chest x-ray from 10/07/2024. FINDINGS/IMPRESSION: There is no focal consolidation, pleural effusion, or pneumothorax.The cardiomediastinal silhouette is normal. No displaced fractures identified. Hardware projecting over thoracic spine. > Dictated by Otis Bocanegra MD (residential real estate agent). > Dictated by Reject Opener I, Blake Plasencia MD have personally reviewed and interpreted this examination/study. > Interpreting Provider: Blake Plasencia MD on 10/10/2024 1:17 AM Procedure Note Blake lPasencia MD - 10/10/2024 PROCEDURE: XR CHEST 1VW PORTABLE, DATE/TIME OF EXAM: 10/09/2024 7:27PM, LOCATION [facility] INDICATION: R06.02: Short of breath on exertion ADDITIONAL CLINICAL INFORMATION: Ordering Provider Reason For Exam: r/o effusion, pneumonia Technologist Note: Additional: COMPARISON: Chest x-ray from 10/07/2024. FINDINGS/IMPRESSION: There is no focal consolidation, pleural effusion, or pneumothorax.The cardiomediastinal silhouette is normal. No displaced fracturesidentified. Hardware projecting over thoracic spine. > Dictated by Otis Bocanegra MD (residential real estate agent). > Dictated by Reject Opener I, Blake Plasencia MD have personally reviewed and interpreted this examination/study. > Interpreting Provider: Blake Plasencai MD on 10/10/2024 1:17 AM us Anjali Avelar NEURODIAGNOSTIC TECHNICIAN-HEALTH THERAPIST DIAGNOSTIC IMAGING O RDERABLES Final Result * (ABNORMAL) BLOOD GASES ABBEY + COOX PANEL (10/09/2024 4:39 PM CDT) Only the most recent of2 resultswithin the time period is included. pH Venous 7.41 7.32 - 7.42 pH 10/09/2024 5:04 PM [facility] pO2 Venous 34(L) 35 - 40 mmHg 10/09/2024 5:04 PM [facility] pCO2 Venous 44 40 - 50 mmHg 10/09/2024 5:04 PM [facility] HCO3 Venous 27.9 20 - 30 mmol/L 10/09/2024 5:04 PM [facility] Base Excess Venous 2.9(H) -2.0 - 2.0 mmol/L 10/09/2024 5:04 PM [facility] Oxyhemoglobin Venous 56.8 % 09/18 5:04 PM [facility] Comment:A^Absorbance Error Deoxyhemoglobin (HHB) Venous % 42.6 % 10/09/2024 5:04 PM [facility] Comment:A^Absorbance Error Methemoglobin <0.8 0.0 - 2.0 % 10/09/2024 5:04 PM [facility] Comment:A^Absorbance Error Carboxyhemoglobin 0.6 0.0 - 2.0 % 2024 5:04 PM [facility] Comment:A^Absorbance Error O2 Content Venous 7.7 Interpret within clinical context ml/dL 10/09/2024 5:04 PM [facility] Hemoglobin by COOX 9.6(L) 12.0 - 17.6 g/dL 10/09/2024 5:04 PM [facility] Comment:A^Absorbance Error O2 Saturation Venous 57(L) >=70 % 09/18 5:04 PM CDT [facility] Comment:A^Absorbance Error FI O2 Mixed Venous 21.0 % 2024 5:04 PM CDT [facility] Blood BLOOD SPECIMEN / Unknown Venipuncture / Unknown 10/09/2024 4:39 PM CDT 10/09/2024 4:56 PM CDT Narrative [facility] - 10/09/2024 5:04 PM CDT Carboxyhemoglobin Normal Concentration: Non-smokers: 0-2%; Smokers: 0-9%; Toxic: >20% Anjali Avelar [facility] LAB - BLOOD GASES OR DERABLES Final Result [address] [address], [place] [phone] * PHOSPHORUS BLOOD (10/09/2024 4:39 PM CDT) Only the most recent of8 resultswithin the time period is included. Phosphorus 4.9 2.8 - 5.1 mg/dL 10/09/2024 5:29 PM CDT [facility] Blood BLOOD SPECIMEN / Unknown Venipuncture / Unknown 10/09/2024 4:39 PM CDT 10/09/2024 4:58 PM CDT Anjali Avelar NEURODIAGNOSTIC TECHNICIANLAWR[facility] LAB - CHEMISTRY ORDE RABLES Final Result [address] [address], [place] [phone] * (ABNORMAL) GLUCOSE - POINT OF CARE (10/09/2024 4:26 PM CDT) Only the most recent of55 resultswithin the time period is included. Glucose WB/POC 115(H) 70 - 99 mg/dL 10/09/2024 4:30 PM CDT [facility] Specimen Type Arterial/C apillary 10/09/2024 4:30 PM [facility] Blood BLOOD SPECIMEN / Unknown 10/09/2024 4:26 PM CDT 10/09/2024 4:30 PM CDT us Provider Unknown LAB - POINT OF CARE ORDERABLES Final Result [facility] [address] [place] [address], [facility] [phone] * (ABNORMAL) URINALYSIS REFLEX MICROSCOPIC REFLEX CULTURE (10/07/2024 6:16 PM CDT) Color UA Yellow Yellow, Straw 10/07/2024 6:39 PM [facility] Clarity UA Ex. Turbid(A) Clear 10/07/2024 6:39 PM [facility] Glucose UA Normal Normal 10/07/2024 6:39 PM [facility] Bilirubin UA Negative Negative 10/07/2024 6:39 PM [facility] Ketone UA Negative Negative 10/07/2024 6:39 PM [facility] Specific [place] UA 1.015 1.005 - 1.030 10/07/2024 6:39 PM [facility] Blood UA 3+(A) Negative 10/07/2024 6:39 PM [facility] pH UA 6.0 5.0 - 8.0 10/07/2024 6:39 PM [facility] Protein UA 2+(A) Negative 10/07/2024 6:39 PM [facility] Urobilinogen UA Normal Normal mg/dL 10/07/2024 6:39 PM [facility] Nitrite UA Negative Negative 10/07/2024 6:39 PM [facility] Leukocyte Esterase UA 500 MOLLY/uL(A) Negative 10/07/2024 6:39 PM [facility] RBC UA 51-100(A) 0 - 5 # /hpf 10/07/2024 6:39 PM [facility] WBC UA >100(A) 0 - 5 # /hpf 10/07/2024 6:39 PM [facility] Bacteria UA 2+(A) None Seen 10/07/2024 6:39 PM CDT [facility] Squamous Epithelial Cells None Seen 0 - 5 /hpf 10/07/2024 6:39 PM CDT [facility] Transitional Epithelial Cell UA 0-2(A) None Seen /HPF 10/07/2024 6:39 PM CDT [facility] Budding Yeast Moderate(A) None seen /hpf 10/07/2024 6:39 PM CDT [facility] Reflex Status Culture to follow 10/07/2024 6:39 PM CDT [facility] Urine URINE SPECIMEN OBTAINED VIA [employer] URINARY CATHETER / Unknown Collection / Unknown 10/07/2024 6:16 PM CDT 10/07/2024 6:19 PM CDT Narrative [facility] - 10/07/2024 6:39 PM CDT Richard Sylvester MD LAB - URINALYSIS ORDERABLES Kenna l Result Performing Organization Address City/State/[facility] Co de Phone Number [facility] [address] [place] [address], [facility] [phone] * (ABNORMAL) CULTURE URINE (10/07/2024 6:16 PM CDT) Culture Urine 50,000-100,000 CFU/mL Klebsiella pneumoniae(A) MUSHTAQ 10/09/2024 5:54 AM CDT [facility] MICROBIOLOGY Urine URINE SPECIMEN OBTAINED VIA [employer] URINARY CATHETER / Unknown Collection / Unknown 10/07/2024 6:16 PM CDT 10/07/2024 6:19 PM CDT [facility] MICROBIOLOGY - 10/09/2024 5:54 AM CDT [...] LAB - MICROBIOLOGY ORDERABLES Fi nal Result [facility]CROBIOLOGY [address] [place] [address], [facility] [phone] * VAS Arterial Multilevel Le (10/05/2024 12:24 PM CDT) Anatomical Region Laterality Modality Intravascular Ul trasound 10/05/2024 11:3 4 AM CDT Narrative Procedure Note Elroy Holcomb MD - 10/05/2024 Guy Messina MD VASCULAR LAB ORDERABLES Edit ed Result - Final * (ABNORMAL) HEMOGLOBIN A1C (09/25/2024 5:06 AM CDT) Hemoglobin A1c 5.8(H) <=5.6 % 09/25/2024 8:19 AM CDT [facility] Estimated Average Glucose 120 mg/dL 09/25/2024 8:19 AM CDT [facility] Comment: HbA1c Interpretation: Normal : < 5.7% Pre-diabetes: 5.7-6.4% Diabetes: Equal to or greater than 6.5% Test results diagnostic of diabetes should be repeated for confirmation. Treatment target values recommended by ADA and other clinical organizations should be used to evaluate metabolic control in patients. Reference: [place] [employer], Standards of Care in Diabetes [...] LAB - CHEMISTRY ORDERABLES F inal Result [address] [address], [facility] [phone] * (ABNORMAL) RENAL FUNCTION PANEL (09/24/2024 7:53 PM CDT) Only the most recent of3 resultswithin the time period is included. BUN 42(H) 7 - 26 mg/dL 09/24/2024 8:47 PM [facility] Creatinine 12.22(H) 0.71 - 1.16 mg/dL 09/24/2024 8:47 PM [facility] Sodium 136 136 - 145 mmol/L 09/24/2024 8:47 PM [facility] Potassium 3.9 3.5 - 4.5 mmol/L 09/24/2024 8:47 PM [facility] Chloride 97(L) 98 - 107 mmol/L 09/24/2024 8:47 PM [facility] CO2 24 22 - 29 mmol/L 09/24/2024 8:47 PM [facility] Glucose 93 70 - 99 mg/dL 09/24/2024 8:47 PM [facility] Albumin 1.8(L) 3.4 - 5.0 g/dL 09/24/2024 8:47 PM T [facility] Calcium 8.4 8.4 - 10.2 mg/dL 09/24/2024 8:47 PM [facility] Phosphorus 7.0(H) 2.8 - 5.1 mg/dL 09/24/2024 8:47 PM [facility] Anion Gap 15 6 - 16 09/24/2024 8:47 PM [facility] BUN/Creatinine Ratio 3(L) 7 - 23 09/24/2024 8:47 PM [facility] Osmolality Calculated 292 275 - 295 mOsm/kg 09/24/2024 8:47 PM [facility] eGFR by CKD-EPI 4(L) >=90 mL/min/1.7 3 m2 09/24/2024 8:47 PM [facility] Comment:Estimated Glomerular Filtration Rate (eGFR) calculated using the CKD-EPI Creatinine Equation (2020), per the National Kidney Foundation and [place] Society [employer] Nephrology recommendations. Blood BLOOD SPECIMEN / Unknown Lab Venipuncture / Unknown 09/24/2024 7:53 PM CDT 09/24/2024 8:15 PM CDT us Guy Messina MD LAB - CHEMISTRY ORDERABLES F inal Result [address] [address], [place] [phone] * TSH REFLEX FREE T4 (09/24/2024 12:02 PM CDT) TSH 1.567 0.350 - 4.940 uIU/mL 09/24/2024 12:57 PM CDT [facility] Blood BLOOD SPECIMEN / Unknown 09/24/2024 12:02 PM CDT 09/24/2024 12:18 PM CDT us Alexis Rodrigez III, MD LAB - CHEMISTRY ORDERAB LES Final Result [address] [address], [place] [phone] * (ABNORMAL) VITAMIN B1 (09/24/2024 12:02 PM CDT) Pathologist [facility] Vitamin B1 Whole Blood 205(H) 70 - 180 nmol/L 09/27/2024 7:16 PM CDT [facility] ([facility]) Comment: INTERPRETIVE INFORMATION: Vitamin B1, Whole Blood This assay measures the concentration of thiamine diphosphate (TDP), the primary active form of vitamin B1. Approximately 90 percent of vitamin B1 present in whole blood is TDP. Thiamine and thiamine monophosphate, which comprise the remaining 10 percent, are not measured. This test was developed and its performance characteristics determined by [facility]. It has not been cleared or approved by the [place] Food and Drug Administration. This test was performed in a CLIA certified laboratory and is intended for clinical purposes. Performed By: [facility] [employer] [address] [place] [address] Youth Officer: Mk Egan MD, PhD CLIA Number: [id number] Blood BLOOD SPECIMEN / Unknown 09/24/2024 12:02 PM CDT 09/24/2024 12:11 PM CDT Alexis Rodrigez III, MD LAB - CHEMISTRY ORDERAB LES Final Result Performing Organization Address City/[facility]/ZIP Co de Phone Number [facility]) [address] [place] [phone] [place] [address] * (ABNORMAL) VITAMIN B12 (09/24/2024 12:02 PM CDT) Pathologist [facility] Vitamin B12 1,151(H) 213 - 816 pg/mL 09/24/2024 12:57 PM CDT [facility] Blood BLOOD SPECIMEN / Unknown 09/24/2024 12:02 PM CDT 09/24/2024 12:18 PM CDT Alexis Rodrigez III, MD LAB - CHEMISTRY ORDERAB LES Final Result [address] [address], [facility] [phone] * (ABNORMAL) TROPONIN-I HIGH SENSITIVE (09/24/2024 5:08 AM CDT) Troponin I High Sensitive 83(H) <=35 ng/L 09/24/2024 6:10 AM CDT [facility] Blood BLOOD SPECIMEN / Unknown Lab Venipuncture / Unknown 09/24/2024 5:08 AM CDT 09/24/2024 5:28 AM CDT us Jennifer Winn MD LAB - CHEMISTRY ORDERABLES F inal Result [facility] [address] [place] [address], [facility] [phone] * CT Lumbar Spine Wo Contrast (09/23/2024 [...] Report dictated by Branden Jha MD (residential real estate agent) 09/23/2024 5:45 PM. > Dictated by Reject Opener I, Jana Clark MD have personally reviewed and interpreted this examination/study. > Interpreting Provider: Jana Clark MD on 09/23/2024 6:29 PM Narrative 09/23/2024 6:29 PM CDT PROCEDURE: CT HEAD WO CONTRAST, CT LUMBAR SPINE WO CONTRAST, CT THORACIC SPINE WO CONTRAST, CT CERVICAL SPINE WO CONTRAST, DATE/TIME OF EXAM: 09/23/2024 5:32 PM, LOCATION [facility] INDICATION: W19.XXXA: Fall, initial encounter R41.82: Altered mental status, unspecified altered mental status type ADDITIONAL CLINICAL INFORMATION: Ordering Provider Reason For Exam: r/o bleed, fx (accession [id number]), r/o fx (accession [id number]), r/o fx (accession [id number]), r/o fx (accession [id number]) Technologist Note: None. Additional: 69 year old [...] EXAM: 09/23/2024 5:32 PM, LOCATION [facility] INDICATION: W19.XXXA: Fall, initial encounter R41.82: Altered mental status, unspecified altered mental status type ADDITIONAL CLINICAL INFORMATION: Ordering Provider Reason For Exam: r/o bleed, fx (accession [id number]), r/o fx (accession [id number]), r/o fx (accession [id number]), r/o fx (accession [id number]) Technologist Note: None. Additional: 69 year old [...] Report dictated by Branden Jha MD (residential real estate agent) 09/23/2024 5:45 PM. > Dictated by Reject Opener I, Jana Clark MD have personally reviewed [...] Report dictated by Branden Jha MD (residential real estate agent) 09/23/2024 5:45 PM. > Dictated by Reject Opener I, Jana Clark MD have personally reviewed and interpreted this examination/study. > Interpreting Provider: Jana Clark MD on 09/23/2024 6:29 PM Narrative 09/23/2024 6:29 PM CDT PROCEDURE: CT HEAD WO CONTRAST, CT LUMBAR SPINE WO CONTRAST, CT THORACIC SPINE WO CONTRAST, CT CERVICAL SPINE WO CONTRAST, DATE/TIME OF EXAM: 09/23/2024 5:32 PM, LOCATION [facility] INDICATION: W19.XXXA: Fall, initial encounter R41.82: Altered mental status, unspecified altered mental status type ADDITIONAL CLINICAL INFORMATION: Ordering Provider Reason For Exam: r/o bleed, fx (accession [id number]), r/o fx (accession [id number]), r/o fx (accession [id number]), r/o fx (accession [id number]) Technologist Note: None. Additional: 69 year old [...] EXAM: 09/23/2024 5:32 PM, LOCATION [facility] INDICATION: W19.XXXA: Fall, initial encounter R41.82: Altered mental status, unspecified altered mental status type ADDITIONAL CLINICAL INFORMATION: Ordering Provider Reason For Exam: r/o bleed, fx (accession [id number]), r/o fx (accession [id number]), r/o fx (accession [id number]), r/o fx (accession [id number]) Technologist Note: None. Additional: 69 year old [...] Report dictated by Branden Jha MD (residential real estate agent) 09/23/2024 5:45 PM. > Dictated by Reject Opener Jana Leigh MD have personally reviewed and [...] Report dictated by Branden Jha MD (residential real estate agent) 09/23/2024 5:45 PM. > Dictated by Reject Opener Jana Leigh MD have personally reviewed and interpreted this examination/study. > Interpreting Provider: Jana Clark MD on 09/23/2024 6:29 PM Narrative 09/23/2024 6:29 PM CDT PROCEDURE: CT HEAD WO CONTRAST, CT LUMBAR SPINE WO CONTRAST, CT THORACIC SPINE WO CONTRAST, CT CERVICAL SPINE WO CONTRAST, DATE/TIME OF EXAM: 09/23/2024 5:32 PM, LOCATION [facility] INDICATION: W19.XXXA: Fall, initial encounter R41.82: Altered mental status, unspecified altered mental status type ADDITIONAL CLINICAL INFORMATION: Ordering Provider Reason For Exam: r/o bleed, fx (accession [id number]), r/o fx (accession [id number]), r/o fx (accession [id number]), r/o fx (accession [id number]) Technologist Note: None. Additional: 69 year old [...] EXAM: 09/23/2024 5:32 PM, LOCATION [facility] INDICATION: W19.XXXA: Fall, initial encounter R41.82: Altered mental status, unspecified altered mental status type ADDITIONAL CLINICAL INFORMATION: Ordering Provider Reason For Exam: r/o bleed, fx (accession [id number]), r/o fx (accession [id number]), r/o fx (accession [id number]), r/o fx (accession [id number]) Technologist Note: None. Additional: 69 year old [...] Report dictated by Branden Jha MD (residential real estate agent) 09/23/2024 5:45 PM. > Dictated by Reject Opener I, Jana Clark MD have personally reviewed [...] Report dictated by Branden Jha MD, (residential real estate agent). > Dictated by Reject Opener I, Nicole Bernabe MD have personally reviewed and interpreted this examination/study. > Interpreting Provider: Nicole Bernabe MD on 09/24/2024 9:17 AM Narrative 09/24/2024 9:17 AM CDT PROCEDURE: XR FOOT LEFT 3VW OR MORE, DATE/TIME OF EXAM: 09/23/2024 5:34 PM, LOCATION [facility] INDICATION: W19.XXXA: Fall, initial encounter ADDITIONAL CLINICAL [...] OF EXAM: 09/23/2024 5:34PM, LOCATION [facility] INDICATION: W19.XXXA: Fall, initial encounter ADDITIONAL CLINICAL [...] Report dictated by Branden Jha MD, (residential real estate agent). > Dictated by Reject Opener I, Nicole Bernabe MD have personally reviewed and interpreted this examination/study. > Interpreting Provider: Nicole Bernabe MD on 09/24/2024 9:17 AM Moon Lewis PA-C DIAGNOSTIC IMAGING ORDERABLES F inal Result * (ABNORMAL) C-REACTIVE PROTEIN (09/23/2024 4:52 PM CDT) Only the most recent of2 resultswithin the time period is included. C-Reactive Protein 1.6(H) <=0.5 mg/dL 09/23/2024 5:42 PM CDT [facility] Blood BLOOD SPECIMEN / Unknown Venipuncture / Unknown 09/23/2024 4:52 PM CDT 09/23/2024 4:56 PM CDT Moon Lewis PA-C LAB - CHEMISTRY ORDERABLES Kenna l Result Performing Organization Address City/[facility]/ZIP Co de Phone Number [address] [address], [facility] [phone] * (ABNORMAL) ERYTHROCYTE SEDIMENTATION RATE (09/23/2024 4:52 PM CDT) Only the most recent of2 resultswithin the time period is included. Erythrocyte Sedimentation Rate Westergren 116(H) 0 - 20 MM/HR 09/23/2024 5:21 PM CDT [facility] Blood BLOOD SPECIMEN / Unknown Venipuncture / Unknown 09/23/2024 4:52 PM CDT 09/23/2024 5:05 PM CDT Moon Lewis PA-C LAB - HEMATOLOGY ORDERABLES Fin al Result [address] [address], [facility] [phone] * (ABNORMAL) DIFFERENTIAL MANUAL (09/23/2024 4:52 PM CDT) Only the most recent of3 resultswithin the time period is included. Neutrophil % 78(H) 41 - 74 % 09/23/2024 5:33 PM CDT [facility] Lymphocyte % 10(L) 17 - 47 % 09/23/2024 5:33 PM CDT [facility] Monocyte % 10 3 - 11 % 09/23/2024 5:33 PM T [facility] Eosinophil % 1 0 - 7 % 09/23/2024 5:33 PM CDT [facility] Metamyelocyte % 1(H) 0% % 5:33 PM T [facility] Neutrophil Absolute 8.66(H) 1.60 - 7.50 x10E9/L 09/23/2024 5:33 PM CDT [facility] Lymphocyte Absolute 1.11 1.00 - 4.40 x10E9/L 09/23/2024 5:33 PM T [facility] Monocyte Absolute 1.11(H) 0.15 - 1.00 x10E9/L 09/23/2024 5:33 PM [facility] Eosinophil Absolute 0.11 0.00 - 0.60 x10E9/L 09/23/2024 5:33 PM [facility] RBC Morphology REVIEWED 09/23/2024 5:33 PM T [facility] Microcytosis MODERATE(A) (none) 09/23/2024 5:33 PM [facility] Blood BLOOD SPECIMEN / Unknown Venipuncture / Unknown 09/23/2024 4:52 PM CDT 09/23/2024 5:05 PM CDT us Moon Lewis PA-C LAB - HEMATOLOGY ORDERABLES Fin al Result [facility] [address] [place] [address], [facility] [phone] * (ABNORMAL) CBC W/O DIFFERENTIAL (09/16/2024 1:01 AM CDT) Only the most recent of10 resultswithin the time period is included. WBC 9.3 4.0 - 10.7 x10E9/L 09/16/2024 1:43 AM [facility] RBC Count 3.37(L) 4.30 - 5.80 x10E12/L 09/16/2024 1:43 AM [facility] Hemoglobin 9.5(L) 13.3 - 17.5 g/dL 09/16/2024 1:43 AM [facility] Hematocrit 28.3(L) 38.7 - 51.1 % 09/16/2024 1:43 AM [facility] MCV 84.0 80.0 - 98.0 fL 09/16/2024 1:43 AM [facility] MCH 28.2 26.7 - 33.6 pg 09/16/2024 1:43 AM [facility] MCHC 33.6 31.7 - 36.3 g/dL 09/16/2024 1:43 AM [facility] RDW-CV 15.7(H) 11.3 - 14.8 % 09/16/2024 1:43 AM [facility] Platelet Count 205 150 - 420 x10E9/L 09/16/2024 1:43 AM [facility] MPV 10.3 7.8 - 11.4 fL 09/16/2024 1:43 AM [facility] Blood BLOOD SPECIMEN / Unknown Lab Venipuncture / Unknown 09/16/2024 1:01 AM CDT 09/16/2024 1:40 AM CDT us Alexis Rodrigez III, MD LAB - HEMATOLOGY ORDERA BLES Final Result [facility] [address] [place] [address], [facility] [phone] * VANCOMYCIN LEVEL RANDOM (09/15/2024 4:10 PM CDT) Only the most recent of3 resultswithin the time period is included. Pathologist [facility] Vancomycin Random 31.2 Therapeutic Ranges not established for random specimens ug/mL 09/15/2024 6:00 PM CDT [facility] Blood BLOOD SPECIMEN / Unknown Lab Venipuncture / Unknown 09/15/2024 4:10 PM CDT 09/15/2024 4:51 PM CDT Narrative [facility] - 09/15/2024 6:00 PM CDT See institution protocol. us Aureliano Pierce MD LAB - CHEMISTRY ORDERAB LES Final Result [address] [address], [place] [phone] * LACTIC ACID BLOOD (09/14/2024 3:32 PM CDT) Only the most recent of4 resultswithin the time period is included. [facility] Lactic Acid-Stat 2.0 <=2.0 mmol/L 09/14/2024 4:17 PM CDT [facility] Blood BLOOD SPECIMEN / Unknown Lab Venipuncture / Unknown 09/14/2024 3:32 PM CDT 09/14/2024 3:51 PM CDT us Alexis Rodrigez III, MD LAB - CHEMISTRY ORDERAB LES Final Result Performing Organization Address City/[facility]/ZIP Co de Phone Number [address] [address], [place] [phone] * (ABNORMAL) HGB HCT PANEL (09/14/2024 1:24 PM CDT) Only the most recent of2 resultswithin the time period is included. [facility] Hemoglobin 8.7(L) 13.3 - 17.5 g/dL 09/14/2024 1:41 PM CDT [facility] Hematocrit 25.6(L) 38.7 - 51.1 % 09/14/2024 1:41 PM CDT [facility] Blood BLOOD SPECIMEN / Unknown Venipuncture / Unknown 09/14/2024 1:24 PM CDT 09/14/2024 1:30 PM CDT us Alexis Rodrigez III, MD LAB - HEMATOLOGY ORDERA BLES Final Result [facility] [address] [place] [address], [facility] [phone] * PATHOLOGY TISSUE (09/14/2024 11:45 AM CDT) Case Report Surgical Pathology Report Case: [id number] Authorizing Provider: Elroy Holcomb MD Collected: 09/14/2024 11:45 AM Ordering Location: [facility] Received: 09/14/2024 12:47 PM Pathologist: Charmaine Myrick MD Specimen: Toe, Left, Left Great Toe 09/16/2024 11:40 AM CDT [facility] Final Diagnosis Toe, left great, amputation (A): - Skin ulceration and necrosis - Acute osteomyelitis - Bone margin negative for acute inflammation - Skin and soft tissue margin appears viable 09/16/2024 11:40 AM CDT [facility] at 1140 CDT Microscopic Description and Comment Microscopic examination substantiates the diagnosis. 09/16/2024 11:40 AM CDT [facility] Clinical History The patient is a 69-year-old man with first toe dry gangrene and history of PAD. 09/16/2024 11:40 AM CDT [facility] Gross Description The requisition and [...] hemorrhage. There are no additional gross lesions. Theatrical Performer sections are submitted as follows: A1-skin and soft tissue to resection margin, medial and dorsal surfaces A2-bony resection margin, decalcified A3-partial proximal cross-section with surrounding mummification, decalcified IKD 09/16/2024 11:40 AM CDT [facility] Pathologist Location at [facility] 09/16/2024 11:40 AM CDT [facility] Disclaimer The performance characteristics of all immunohistochemical and indirect immunofluorescence stains (if any) cited in this report were determined by the Histopathology Laboratory of [facility]. Some of these tests were developed [...] 09/16/2024 11:40 AM CDT [facility] Embedded Images 09/16/2024 11:40 AM [address] [facility] Amputation, Traumatic (Gross Only) (Toe, Left) 09/14/2024 11:45 AM CDT 09/14/2024 12:47 PM CDT Comment:Pre-op diagnosis: Toe gangrene (HCC) [I96] us Elroy Holcomb MD LAB - PATHOLOGY/CYTOLOGY O RDERABLES Final Result Performing Organization Address City/State/[facility] Co de Phone Number [facility] [address] [phone] * Peripheral Nerve Block (09/14/2024 10:38 AM [...] fungus isolated [facility]HTAQ 10/11/2024 8:05 AM CDT [facility] Fungus Stain No yeast or hyphae seen 10/11/2024 8:05 AM CDT [facility] Microbiology PERITONEAL DIALYSATE SPECIMEN / Unknown Collection / Unknown 09/13/2024 8:08 PM CDT 09/13/2024 8:10 PM CDT us Alexis Rodrigez III, MD LAB - MICROBIOLOGY PK ZENG Final Result [facility] [address] [place] [address], [facility] [phone] * DIFFERENTIAL MANUAL FLUID (09/13/2024 8:08 PM CDT) Fluid Source Peritoneal 09/13/2024 9:03 PM CDT [facility] Body Fluid Total Cell Count 100 x10E6/L 09/13/2024 9:03 PM CDT [facility] Neutrophils Fluid Percent 11 % 09/13/2024 9:03 PM CDT [facility] Lymphocytes Fluid Percent 6 % 09/13/2024 9:03 PM CDT [facility] Macrophages Fluid Percent 79 % 09/13/2024 9:03 PM CDT [facility] Mesothelial Cells Fluid Percent 4 % 09/13/2024 9:03 PM CDT [facility] Fluid PERITONEAL FLUID / Unknown Collection / Unknown 09/13/2024 8:08 PM CDT 09/13/2024 8:10 PM CDT Narrative [facility] - 09/13/2024 9:03 PM CDT No reference ranges established for body fluid differential cell counts. The test results must be integrated into the clinical context for interpretation. us Alexis Rodrigez III, MD LAB - BODY FLUID ORDERA BLES Final Result Performing Organization Address City/State/[facility] Co de Phone Number [address] [address], [facility] [phone] * CULTURE FLUID+GRAM STAIN (09/13/2024 8:08 PM CDT) Culture No growth [facility] 09/17/2024 12:38 AM CDT [facility] Gram Stain Light Polymorphonuclear cells 09/17/2024 12:38 AM CDT [facility] Gram Stain No organisms seen 025 12:38 AM CDT [facility] Other PERITONEAL DIALYSATE SPECIMEN / Unknown Collection / Unknown 09/13/2024 8:08 PM CDT 09/13/2024 8:10 PM CDT us Alexis Rodrigez III, MD LAB - MICROBIOLOGY PK ZENG Final Result Performing Organization Address City/[facility]/ZIP Co de Phone Number [facility] [address] [place] [address], [facility] [phone] * CULTURE ANAEROBE (09/13/2024 8:08 PM CDT) Culture No anaerobic organisms isolated [facility] 09/19/2024 8:26 AM CDT [facility] Microbiology PERITONEAL DIALYSATE SPECIMEN / Unknown Collection / Unknown 09/13/2024 8:08 PM CDT 09/13/2024 8:11 PM CDT us Alexis Rodrigez III, MD LAB - MICROBIOLOGY PK ZENG Final Result Performing Organization Address [facility] Co de Phone Number [facility] [address] [place] [address], [facility] [phone] * CELL COUNT W DIFFERENTIAL FLUID (09/13/2024 8:08 PM CDT) Fluid Source Peritoneal 09/13/2024 9:03 PM CDT [facility] Fluid Appearance CLEAR 09/13/2024 9:03 PM CDT [facility] Fluid Color YELLOW 09/13/2024 9:03 PM CDT [facility] Total Nucleated Cells Fluid 279 Reference Range Not Established x10E6/L 09/13/2024 9:03 PM CDT [facility] RBC Count Fluid <2,000 Reference Range Not Established x10E6/L 09/13/2024 9:03 PM CDT [facility] Fluid PERITONEAL FLUID / Unknown Collection / Unknown 09/13/2024 8:08 PM CDT 09/13/2024 8:10 PM CDT Narrative [facility] - 09/13/2024 9:03 PM CDT No reference ranges established for body fluid cell counts. Any reference ranges provided are derived from published literature. The test results must be integrated into the clinical context for interpretation. us Alexis Rodrigez III, MD LAB - BODY FLUID ORDERA BLES Final Result Performing Organization Address City/[facility]/ZIP Co de Phone Number [facility] [address] [address], [facility] [phone] * VAS Bilateral Venous Duplex Le (09/13/2024 4:34 PM CDT) Anatomical Region Laterality Modality Lower Extremity Ultrasound 09/13/2024 4:18 PM CDT Narrative Procedure Note Lalit Castanon MD - 09/13/2024 us Alexis Rodrigez III, MD VASCULAR LAB ORDERABLES Edited Result - Final * SARS-COV-2 (COVID-19) RAPID (09/13/2024 6:02 AM CDT) COVID-19 PCR Not detected Not detected 09/14/19 6:36 AM CDT [facility] Microbiology SPECIMEN FROM NASOPHARYNGEAL STRUCTURE / Unknown Collection / Unknown 09/13/2024 6:02 AM CDT 09/13/2024 6:04 AM CDT Narrative [facility] - 09/13/2024 6:36 AM CDT The [...] - MICROBIOLOGY ORDERABLE S Final Result [facility] [address] [place] [address], [facility] [phone] * TRANSFUSE RED BLOOD CELL LEUKOREDUCED UNIT(S) [...] Dictated by Sera Chowdhury Dr, MD (residential real estate agent). I, Terry Ramos MD have personally reviewed and interpreted this examination/study. > Interpreting Provider: Terry Ramos MD on 09/13/2024 9:42 AM Narrative 09/13/2024 9:42 AM CDT PROCEDURE: CT ANGIO AORTA FOR DISSECTION, DATE/TIME OF EXAM: 09/13/2024 12:28 AM, LOCATION [facility] INDICATION: R10.9: Abdominal pain, unspecified abdominal location [...] EXAM: 09/13/2024 12:28 AM, LOCATION [facility] INDICATION: R10.9: Abdominal pain, unspecified abdominal location [...] Dictated by Sera Chowdhury Dr, MD (residential real estate agent). I, Terry Ramos MD have personally reviewed and interpreted this examination/study. > Interpreting Provider: Terry Ramos MD on 09/13/2024 9:42 AM Yuriy Lopez MD CT ORDERABLES Final Result * PREPARE (CROSSMATCH) RBC UNIT(S), 1 Units (09/12/2024 11:30 PM CDT) Unit Description AS1 LR PRBC [facility] Unit ABO O [facility] Unit Rh NEG [facility] Product Number R43 [facility] Unit Donor # [id number] [facility] Unit Status transfused [facility] Product Code [id number] [facility] Blood Type Barcode 9500 [facility] Expiration Date [id number] S BLOOD BANK LAB Blood Bank BLOOD SPECIMEN / Unknown 09/12/2024 11:30 PM CDT 09/12/2024 11:37 PM CDT Yuriy Lopez MD LAB - BLOOD BANK ORDERABLES Final Result Performing Organization Address City/[facility]/ZIP Co de Phone Number [facility] [address] [place] [address], [place] [phone] * TYPE + SCREEN PANEL (09/12/2024 11:30 PM CDT) Antibody Screen NEG 12:16 AM CDT [facility] ABO Rh O NEG 09/13/2024 12:16 AM CDT [facility] Blood Bank BLOOD SPECIMEN / Unknown Venipuncture / Unknown 09/12/2024 11:30 PM CDT 09/12/2024 11:37 PM CDT Yuriy Lopez MD LAB - BLOOD BANK ORDERABLES Final Result Performing Organization Address [facility]/ZIP Co de Phone Number [facility] [address] [place] [address], [place] [phone] * CULTURE BLOOD (09/12/2024 10:00 PM CDT) Only the most recent of4 resultswithin the time period is included. Culture No growth day 5 MUSHTAQ 09/18/2024 1:30 AM CDT [facility] Blood PERIPHERAL BLOOD / Unknown Venipuncture / Unknown 09/12/2024 10:00 PM CDT 09/12/2024 10:21 PM CDT Yuriy Lopez MD LAB - MICROBIOLOGY ORDERABLE S Final Result [facility]CRO[facility] [address] [place] [address], [facility] [phone] * (ABNORMAL) BASIC METABOLIC PANEL (CALCIUM TOTAL) (09/08/2024 10:45 AM CDT) Only the most recent of6 resultswithin the time period is included. BUN 46(H) 7 - 26 mg/dL 09/08/2024 11:55 AM [facility] Creatinine 10.97(H) 0.71 - 1.16 mg/dL 09/08/2024 11:55 AM [facility] Sodium 142 136 - 145 mmol/L 09/08/2024 11:55 AM [facility] Potassium 4.4 3.5 - 4.5 mmol/L 09/08/2024 11:55 AM [facility] Chloride 104 98 - 107 mmol/L 09/08/2024 11:55 AM [facility] CO2 25 22 - 29 mmol/L 09/08/2024 11:55 AM [facility] Glucose 112(H) 70 - 99 mg/dL 09/08/2024 11:55 AM [facility] Calcium 8.9 8.4 - 10.2 mg/dL 09/08/2024 11:55 AM [facility] Anion Gap 13 6 - 16 09/08/2024 11:55 AM [facility] BUN/Creatinine Ratio 4(L) 7 - 23 09/08/2024 11:55 AM [facility] Osmolality Calculated 307(H) 275 - 295 mOsm/kg 09/08/2024 11:55 AM [facility] eGFR by CKD-EPI 5(L) >=90 mL/min/1.7 3 m2 09/08/2024 11:55 AM [facility] Comment:Estimated Glomerular Filtration Rate (eGFR) calculated using the CKD-EPI Creatinine Equation (2020), per the National Kidney Foundation and [place] Society of Nephrology recommendations. Blood BLOOD SPECIMEN / Unknown Lab Venipuncture / Unknown 09/08/2024 10:45 AM CDT 09/08/2024 11:26 AM T us Mellissa Freitas PA-C LAB - CHEMISTRY ORDERABLES Final Result [facility] [address] [place] [address], [facility] [phone] * VAS Bilateral Venous Mapping (09/07/2024 2:24 [...] thickening. Report dictated by Freddie Durham MD, (Reject Opener). I, Junior Hurley MD have personally reviewed [...] thickening. Report dictated by Freddie Durham MD, (Reject Opener). I, Junior Hurley MD have personally reviewed and interpreted this examination/study. > Interpreting Provider: Junior Hurley MD on 56:26 AM us Charmaine Khalil MD CT ORDERABLES Final Result * (ABNORMAL) POTASSIUM WHOLE BLD (09/01/2024 3:54 PM CDT) Potassium Whole Blood 3.1(L) 3.5 - 5.5 mmol/L 09/01/2024 4:05 PM CDT [facility] Blood WHOLE BLOOD SPECIMEN / Unknown Venipuncture / Unknown 09/01/2024 3:54 PM CDT 09/01/2024 3:57 PM CDT Jaqueline Crews NEURODIAGNOSTIC TECHNICIAN-HEALTH THERAPIST LAB - CHEMISTRY ORDERABL ES Final Result [facility] [address] [place] [address], [facility] [phone] * CCL STAGED PERC CORONARY INTERVENTION, CCL [...] 6Fr 1.25Mm Diamondback catheter and using a [facility] Diamondback 360 Viperwire Adv wire. 2 [...] continuing DAPT Cardiology clinic f/u Jaqueline Crews NEURODIAGNOSTIC TECHNICIAN-HEALTH THERAPIST CV CARDIAC CATH CUPID ME OCS Final Result * (ABNORMAL) IRON + TRANSFERRIN PANEL (08/19/2024 1:41 AM CDT) Iron 40(L) 50 - 175 ug/dL 08/19/2024 2:17 AM CDT [facility] Transferrin 116(L) 174 - 382 mg/dL 08/19/2024 2:17 AM CDT [facility] Transferrin Saturation % 28 16 - 50 % 08/19/2024 2:17 AM CDT [facility] TIBC Calculated 145(L) 240 - 450 ug/dL 08/19/2024 2:17 AM CDT [facility] Blood BLOOD SPECIMEN / Unknown Lab Venipuncture / Unknown 08/19/2024 1:41 AM CDT 08/19/2024 2:01 AM CDT Result [facility] Hannah Goodman MD LAB - CHEMISTRY ORDERABLES F inal Result [address] [address], [facility] [phone] * (ABNORMAL) FERRITIN (08/19/2024 1:41 AM CDT) Ferritin 560(H) 22 - 275 ng/mL 08/19/2024 2:35 AM CDT [facility] Blood BLOOD SPECIMEN / Unknown Lab Venipuncture / Unknown 08/19/2024 1:41 AM CDT 08/19/2024 2:01 AM CDT us Hannah Goodman MD LAB - CHEMISTRY ORDERABLES F inal Result Performing Organization Address [facility] Co de Phone Number [facility] [address] [place] [address], [place] [phone] * VITAMIN D 25-HYDROXY (08/19/2024 1:23 AM CDT) Vitamin D, 25 Hydroxy 36.2 30.0 - 80.0 ng/mL 08/19/2024 2:24 AM CDT [facility] Comment: The recommendations for [...] ORDERABLES F inal Result Performing Organization Address [facility] Co de Phone Number [address] [address], [facility] [phone] * CCL PERIPHERAL ANGIOGRAM (08/18/2024 2:33 PM CDT) Anatomical Region Laterality Modality X-Ray Angiograph y Narrative 08/19/2024 2:24 PM CDT Left leg angiogram showed left AT severe diffuse disease with multiple subtotal occlusion and left PT severe diffuse disease with FARM EQUIPMENT TECHNICIAN of distal PT without clear reconstitution. Successful [...] 0.018 CXI microcatheter with multiple wires(Command 18/command 14/Ornamenter Hand 200) to get to great toe branch of dorsalis pedis using charter pilot [address]. - the AT-DP lesion was dilated with balloons mentioned in figure. - We turn our attention to PT. We crossed the PT FARM EQUIPMENT TECHNICIAN with 0.018 CXI microcatheter with multiple wires (command 18, command 14, Ornamenter Hand 200) and able to go to lateral [...] using angiography. Left Posterior Tibial: Ost L SENIOR INTERIOR DESIGNER to Dist L SENIOR INTERIOR DESIGNER lesion is 100% stenosed. Stenosis was measured using angiography. Intervention Ost L ROSETTA to Dist L ROSETTA lesion: Angioplasty: Angioplasty independent of stent deployment was performed using a standard balloon. The balloon used was [employer] Em[employer] Mr Wh 1.5Mm 144Cm 15Mm 2. Angioplasty: Angioplasty prior to stent deployment was performed using a standard balloon. The balloon used was ZeePearln Dil Nanocross Elt 2-1.5Mm 150. Angioplasty: Angioplasty [...] 10% residual stenosis post intervention. Ost L SENIOR INTERIOR DESIGNER to Dist L SENIOR INTERIOR DESIGNER lesion: Angioplasty: Angioplasty independent of stent deployment [...] of Plavix. -recommend close follow up with general counsel and follow up with me in clinic with JOSIANE/TBI. Hannah Goodman MD CV INVASIVE VASCULAR AND IR CUPID PROC Final Result * ACT LR - POCT ([facility]) (08/18/2024 2:08 PM CDT) Only the most recent of4 resultswithin the time period is included. ACT LR 231 See result comments sec 08/19/2024 9:02 AM CDT [facility] Blood BLOOD SPECIMEN / Unknown 08/18/2024 2:08 PM CDT 08/19/2024 9:02 AM CDT Narrative [facility] - 08/19/2024 9:02 AM CDT ACT-LR Therapeutics ranges are: Cardiac laborer carpentry dock = 200-300 seconds Sheath pull = ACT [...] MD LAB - COAGULATION ORDERABLES Final Result [facility] [address] [place] [address], [facility] [phone] * MRI ABDOMEN WWO CONTRAST (08/04/2024 12:24 [...] Report dictated by Alan Cole MD (residential real estate agent). ITerry MD have personally reviewed and interpreted [...] of the left kidney, not significantly changed, [id number] image 49, series 16 image 41. A [...] Report dictated by Alan Cole MD (residential real estate agent). Terry Leigh MD have personally reviewed and interpreted this examination/study. > Interpreting Provider: Terry Ramos MD on 08/04/2024 6:23 PM Thomas Mendoza MD MR ORDERABLES Final Resu lt * HEPATITIS C ANTIBODY (06/16/2024 4:15 PM CDT) Hepatitis C Antibody Non-react sylvie Non-reac tive 06/16/2024 5:50 PM CDT [facility] Comment:Hepatitis C Antibody screen indicates no [...] MD LAB - CHEMISTRY ORDERABLES nal Result [facility] [address] [place] [address], [facility] [phone] from Last 3 Months or Most Recently Relevant to Health Maintenance Insurance [employer] MEDICARE ADV [employer] MEDICARE ADV * Guarantor: GRACE INTERIANO Account Type Relation to Patient Date of Phone Billing Address Personal/Family [address] [place] [address] * Guarantor: GRACE INTERIANO Account Type Relation to Patient Date of Phone Billing Address Personal/Family [address] [place] [phone] Advance Directives * Full Code (Latest Code [...] 3:16 PM 08/19/2024 4:36 PM Care Teams Sintering Press Operator Relationship Specialty Start Date End Date Jeff Strickland MD [address] [place] [address] PCP - General 03/05/18 [place] [address] [address] Orthopedic Surgery 03/28/17
--- OUTSIDE RECORDS SUMMARY | 2024-11-04 12:39 | XMS_ITS | Clinical Summary ---
Author Organization [facility] Address [facility] [place] [address] Care Team Providers Care Clinical Services Manager Name Role Phone Jeff Strickland MD Primary Care Provider [phone] Allergies Active Allergy Reactions Criticality Noted Date [...] by mouth nightly at bedtime. Active Multiple Vitamins-Rebecca als (PRESERVISION AREDS 2 OR) Take 1 [...] drink = 0.6 oz pur e alcohol) [facility] Utilities Answer Date Recorded In the past 12 months has th e electric, gas, oil, or water [employer] threatened to shut off services in your [...] slept in a mcc (including now)? 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
--- OUTSIDE RECORDS SUMMARY | 2024-11-04 12:39 | XMS_ITS | Encounter Summary ---
Author Organization [facility] Address [address] [place] [address] Care Team Providers Care Account Support Rep Name Role Phone Deandre Bojorquez MD Unavailable [phone] Jeff Strickland MD Primary Care Provider [phone] Encounter Details Date Type Department Care Team (Late st Contact Info) Description 06/25/2024 Lab Requisition [facility] [address] [place] [id number] Aaln Davenport MD [facility] [place] [address] Social History Tobacco Use Types Packs/Day Years Used Date Smoking Tobacco: Never Smokeless Tobacco: Never Alcohol Use Standard Drinks/Week Comments Not Currently 0 (1 standard drink = 0.6 oz pur e alcohol) socially in past Sex and Gender Information Value Date Recorded Sex Assigned at Male 07/02/2021 2:37 PM CDT 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 Gender Identity Male 07/02/2021 2:37 PM CDT [...] [facility] [address] [facility], [place] [address] Marbin Flores MD [address] [facility] DIV OF [place] [address] Niraj Turner MD [address] [facility] 2L [place] [address] documented as of this encounter Procedures Procedure Name Priority Date/Time Associated Diagnosis Comments HOLD HLA SPECIMEN Routine 06/22/2024 11: 05 AM CDT documented in this encounter Results * HOLD HLA SPECIMEN (06/22/2024 11:05 AM CDT) Hold HLA Specimen 06/25/2024 12:32 PM CDT [facility] Comment:The Hold HLA specime n has been received into the lab and will be held for 5 years at 4 degrees. Blood BLOOD SPECIMEN / Unknown 06/22/2024 11:05 AM CDT 06/25/2024 11:05 AM CDT Alan Davenport MD LAB - BLOOD BANK ORDERABLES F inal Result [facility] [address] [place] [address], [facility] documented in this encounter Visit Diagnoses Not on filedocumented in this encounter Additional Health Concerns Infection Onset Date Last Indicated Resolved Time COVID-19 Under Investigation 09/13/2024 09/13/2024 09/13/2024 6:36 AM CDT documented as of this encounter Care Teams Account Support Rep Relationship Specialty Start Date End Date Jeff Strickland MD [address] [place] [address] PCP - General 03/05/18 [place] [address] [facility] [address] [place] [address] Orthopedic Surgery 03/28/17 documented as of this encounter
--- OUTSIDE RECORDS SUMMARY | 2024-11-04 12:39 | XMS_ITS | Encounter Summary ---
Author Organization [facility] Address [address] [place] [address] Care Team Providers Care Tanker Truck Driver Name Role Phone Deandre Bojorquez MD Unavailable [phone] Jeff Strickland MD Primary Care Provider [phone] Reason for Visit * Reason Onset Date Comments Post-Op 09/03/2024 Encounter Details Date Type Department Care Team (Late st Contact Info) Description 09/03/2024 Telephone [facility] - [facility]iology [address] [facility], [facility] [address] [place] [address] Hannah Goodman MD [address] [facility] [address] [place] [address] Post-Op Social History Tobacco Use Types Packs/Day [...] and heating? Not hard at all 09/04/2024 [facility] Occupat ional Health - Occupational Stress [...] time in the past 12 m [facility], were you homeless or living in a residential (including now)? 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 Gender Identity Male 07/02/2021 2:37 PM [...] confused post op Patient Call Back number: [phone] documented in this encounter Plan of Treatment Upcoming Encounters Date Type Department Care Team (Late st Contact Info) Description 12/06/2024 10:40 AM CDT Office Visit [facility] - Endocrinology [facility], [place] [phone] Marbin Flores MD [address] [facility] DIV [place] [address] Niraj Turner MD [address] [facility] [address] [place] [address] documented as of this encounter Visit Diagnoses Not on filedocumented in this encounter Additional Health Concerns Infection Onset Date Last Indicated Resolved Time COVID-19 Under Investigation 09/13/2024 09/13/2024 09/13/2024 6:36 AM CDT documented as of this encounter Care Teams Tanker Truck Driver Relationship Specialty Start Date End Date Jeff Strickland MD [address] [place] [address] PCP - General 03/05/18 [place] [address] [address] Orthopedic Surgery 03/28/17 documented as of this encounter
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
--- OUTSIDE RECORDS SUMMARY | 2024-11-04 12:39 | XMS_ITS | Encounter Summary ---
Author Organization [facility] Address [address] [place] [address] Care Team Providers Care Leather Patcher Name Role Phone Deandre Bojorquez MD Unavailable [phone] Jeff Strickland MD Primary Care Provider [phone] Encounter Details Date Type Department Care Team (Late st Contact Info) Description 09/10/2024 Telephone [facility] - Centralized Scheduling [facility] [place] [address] Niraj Turner MD [facility] [place] [address] Social History Tobacco Use Types Packs/Day Years [...] and heating? Not hard at all 09/14/2024 [facility] [place] of Occupat [facility] - Occupational Stress Questionnaire Answer [...] living in a correction (including now)? 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 [address] [place] [address] documented as of this encounter Visit Diagnoses Not on filedocumented in this encounter Additional Health Concerns Infection Onset Date Last Indicated Resolved Time COVID-19 Under Investigation 09/13/2024 09/13/2024 09/13/2024 6:36 AM CDT documented as of this encounter Care Teams Leather Patcher Relationship Specialty Start Date End Date Jeff Strickland MD [address] [place] [address] PCP - General 03/05/18 [place] [address] [place] [address] Orthopedic Surgery 03/28/17 documented as of this encounter
--- OUTSIDE RECORDS SUMMARY | 2024-11-04 12:39 | XMS_ITS ---
Author Organization [facility] Address [address] [place] [address] Care Team Providers Care Warehouse Insulation Worker Name Role Phone Jeff Strickland MD Primary Care Provider Chan Nicholas MD Unavailable Alan Mccall MD Unavailable [phone] Pepito Haro MD PhD Unavailable [phone] Solange Guido MD Unavailable Dialysis Access Sites [...] both eyes EGFR Routine 04/13/2024 5:06 AM JAVA LEAD ARCHITECT HEMOGLOBIN A1C STAT 04/10/2024 11:41 PM JAVA LEAD ARCHITECT LIPID PANEL STAT 04/10/2024 11:41 PM JAVA LEAD ARCHITECT from Last 3 Months or Most [...] 300 + = 14 units Active FA-vit Ffcit-E-fkya-vitamin D3 (Dialyvite 800-Ultra D) 0.8-2,000 mg-unit tablet [...] total) by mouth 06/04/19 25 Active vitamins A,C,M-fgif-pmjicv (PreserVision AREDS) 4,296 mcg-226 mg-90 mg capsule [...] damage Assessment & Plan (03/09/2024 6:25 PM JAVA LEAD ARCHITECT): Vision OD trends mild improvement, though [...] discussed that genetic results would not change person. Given we have exhausted available treatment without [...] 03/26/2021 Assessment & Plan (03/26/2021 1:17 PM JAVA LEAD ARCHITECT): Enlarged mild sella turcica on a [...] units Assessment & Plan (03/26/2021 1:17 PM JAVA LEAD ARCHITECT): Chronic, uncontrolled, improving A1c today 7.7 [...] WNL Assessment & Plan (03/26/2021 1:16 PM JAVA LEAD ARCHITECT): Pt currently on Levothyroxine 112 mcg [...] 11/18/2018 Assessment & Plan (01/21/2019 2:02 PM JAVA LEAD ARCHITECT): Symptomatic. Will request for esophageal manometry. [...] well Assessment & Plan (03/26/2021 1:16 PM JAVA LEAD ARCHITECT): On statin therapy Tolerating well Last [...] nephrectomy. 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 [id number] Immunizations Immunization Administration Dates Next Due Hep [...] = 0.6 oz pur e alcohol) rarely [facility] [employer] Answer Date Recorded In the past 12 months has [employer], gas, oil, or water [employer] threatened to shut off services in your [...] often do you attend chur ch or jewish services? Never 03/25/2023 Do you belong to any clubs o r organizations such as baptist groups, unions, fraternal or athletic groups, or [...] on file Legal Sex Male 2:23 AM JAVA LEAD ARCHITECT Gender Identity Not on file Sexual [...] CDT Respiratory Rate 16 04/13/2024 8:33 AM JAVA LEAD ARCHITECT Oxygen Saturation 98% 04/13/2024 8:33 AM JAVA LEAD ARCHITECT Inhaled Oxygen Concentration - - Weight [...] Selwyn Wong M.D. LC: MARC Report ID: [id number] Reading Location: [id number] Procedure Note Dolores Wong MD - 10/12/2024 EXAM DESCRIPTION: MRI BRAIN WO CONTRAST REASON FOR STUDY: other symptoms and signs involving cognitive functionsand awareness Cognitive changes, confusion, worse over that last several weeks, noinjury or trauma but patient states he has had several surgeries recently TECHNIQUE: Multiplanar imaging includes non-contrasted T1, T2, FLAIR, and diffusion with ADC map sequences. Additional sequence(s) sensitive [employer] products. Images stored on PACS. COMPARISON: MRI [...] Selwyn Wong M.D. LC: MARC Report ID: [id number] Reading Location: [id number] us Provider Transcribed Order IMG MRI PROCEDURES [...] Result * (ABNORMAL) eGFR (04/13/2024 5:06 AM JAVA LEAD ARCHITECT) eGFR 5(L) >=60 mL/min/1. 73 m2 [...] reviewed 2020. Blood 04/13/2024 5:0 6 AM JAVA LEAD ARCHITECT 04/13/2024 5:31 AM JAVA LEAD ARCHITECT us Saul Engle MD LAB BLOOD ORDERABLES Final Resul t [facility] Department of Laboratories [place], [place] [id number] * (ABNORMAL) Lipid panel (04/10/2024 11:41 PM JAVA LEAD ARCHITECT) Cholesterol 145 30 - 199 mg/dL [...] on 2017. Triglycerides 453(H) <=149 mg/dL [facility] Comment: Interpretive Data Ages < or = [...] revised on 2017. HDL 22(L) >=40 mg/dL [facility] Comment: Interpretive Data Ages < or = [...] LDL, calculated See Comment <=129 [facility] Comment: Unable to calculate LDL due to [...] on 2023. Non-HDL Cholesterol 123 mg/dL [facility] Comment: Interpretive Data Ages < or = [...] ratio 7 [facility] Blood 04/10/2024 11:4 1 PM JAVA LEAD ARCHITECT 04/10/2024 11:55 PM JAVA LEAD ARCHITECT us Nicole Boo MD LAB BLOOD ORDERABLES Final Result [facility] Department [place] [address] from Last 3 Months or Most Recently Relevant to Health Maintenance
--- OUTSIDE RECORDS SUMMARY | 2024-11-04 12:39 | XMS_ITS ---
Author Organization [facility] Address [facility] [place] [address] Care Team Providers Care Modeling Manager Name Role Phone Jeff Strickland MD Primary Care Provider Chan Nicholas MD Unavailable [phone] Alan Mccall MD Unavailable [phone] Pepito Haro MD PhD Unavailable Solange Guido MD Unavailable [phone] Active Problems Problem Noted Date Diagnosed Date [...] Assessment & Plan (03/09/2024 6:25 PM SENIOR PLANNING ANALYST): Vision OD trends mild improvement, though [...] discussed that genetic results would not exchange trouble shooter. Given we have exhausted available treatment without [...] Assessment & Plan (03/26/2021 1:17 PM SENIOR PLANNING ANALYST): Enlarged mild sella turcica on a [...] Assessment & Plan (03/26/2021 1:17 PM SENIOR PLANNING ANALYST): Chronic, uncontrolled, improving A1c today 7.7 [...] Assessment & Plan (03/26/2021 1:16 PM SENIOR PLANNING ANALYST): Pt currently on Levothyroxine 112 mcg [...] Assessment & Plan (01/21/2019 2:02 PM SENIOR PLANNING ANALYST): Symptomatic. Will request for esophageal manometry. [...] Assessment & Plan (03/26/2021 1:16 PM SENIOR PLANNING ANALYST): On statin therapy Tolerating well Last [...] nephrectomy. 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 [id number] Current Treatment and Therapy Plans No current [...] were not included. Kendall Carl 1955 Referring Medical Appliance Maker: Alan Mccall Dialysis Info: NOD GFR 13 Type: Time: (Not currently on dialysis) days Blood Type: O NEG Body mass index is 37.36 kg/m . ALERTS Mold Checker: needs to establish Past Medical History: Diagnosis Date Arthropathy RA. Dr Strickland manages. 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 CKD (chronic kidney disease), stage V Community acquired pneumonia 2018 [facility] hospitalized. Diabetes mellitus 20 years. Lantus pen. Esophageal reflux takes med Hypercholesteremia 5-10 yrs meds Hypertension takes meds Hypothyroidism meds 20 years Kidney stones 5-6 years ago had 2 in the same year. Malignancy right kidney 2012 Obstructive sleep apnea 3 years. [facility]. [place] remember doctors name Renal cell [...] file Gets together: Not on file Attends episcopalian service: Not on file Active member of [...] Impression: It is the impression of this secondary social studies teacher that Kendall Carl has several positive factors for Kidney transplant candidacy from a psychosocial perspective. Patient appears to have appropriate knowledge of illness. Patient has sufficient insurance coverage and stable financial situation for post transplant needs. No concerns regarding substance abuse, legal issues, or mental health needs. Patient has adequate support system and appropriate discharge plan. Plan: washhouse worker to provide supportive services as needed. Patient appears to be a reasonable candidate for transplant from a psychosocial perspective. -Post transplant arrangement forms are needed prior to being listed. -Updated toxicology results needed, per protocol Psychiatric Consult Recommended: No Transplant Farm Operations Manager: Joy Tam LCSW RD: 11/09/2019 BMI= [...] Assessment & Plan (01/21/2019 2:02 PM SENIOR PLANNING ANALYST): The pain is persistent. The patient [...] has had extensive cardiac workup by the brake shoe rebuilder including coronary angiogram. He has chest pain [...]
[2024-11-04 12:50] VITALS: BP 117/48; PULSE 87; RESP 16; TEMP 36.8; O2SAT 99
--- NOTE | 2024-11-04 13:06 | PC.NURSE ---
of patient reports that he wants to leave due to amount of people ahead of him-and he doesn't want to wait that long. pushed patient back down ramp in wheelchair
--- OUTSIDE RECORDS SUMMARY | 2024-11-04 13:17 | XMS_ITS | Encounter Summary ---
Author Organization [facility] Address [facility] [place] [address] Care Team Providers Care Assistant Film Editor Name Role Phone Deandre Bojorquez MD Unavailable [phone] Jeff Strickland MD Primary Care Provider [phone] Encounter Details Date Type Department Care Team (Late st Contact Info) Description 05/29/2023 Lab Requisition [facility] MAIN LAB [address] [place] [phone] Alan Davenport MD [facility] [place] [address] Social History Tobacco Use Types Packs/Day Years Used Date Smoking Tobacco: Never Smokeless Tobacco: Never Alcohol Use Standard Drinks/Week Comments Not Currently 0 (1 standard drink = 0.6 oz pur e alcohol) socially in past Sex and Gender Information Value Date Recorded Sex Assigned at Male 07/02/2021 2:37 PM CDT 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 Gender Identity Male 07/02/2021 2:37 PM [...] Description 12/06/2024 10:40 AM CDT Office Visit [facility] - Endocrinology [address] [facility], [place] [address] Marbin Flores MD [address]01 [facility] DIV [place] [address] Niraj Turner MD 1225 [facility] 2L [place] [address] documented as of this encounter Procedures Procedure Name Priority Date/Time Associated Diagnosis Comments HOLD HLA SPECIMEN Routine 05/21/2023 9:2 4 AM CDT documented in this encounter Results * HOLD HLA SPECIMEN (05/21/2023 9:24 AM CDT) Hold HLA Specimen 05/29/2023 10:[address] [facility] (NOTRH) Comment:The Hold HLA specime n has been received into the lab and will be held for 5 years at 4 degrees. Blood BLOOD SPECIMEN / Unknown 05/21/2023 9:24 AM CDT 05/29/2023 9:24 AM CDT Alan Davenport MD LAB - BLOOD BANK ORDERABLES F inal Result [facility] ([facility]) [address] [place] [address], [facility] documented in this encounter Visit Diagnoses Not on filedocumented in this encounter Additional Health Concerns Infection Onset Date Last Indicated Resolved Time COVID-19 Under Investigation 09/13/2024 09/13/2024 09/13/2024 6:36 AM CDT documented as of this encounter Care Teams Assistant Film Editor Relationship Specialty Start Date End Date Jeff Strickland MD [address] [place] [address] PCP - General 03/05/18 [place] [address] [place] [address] Orthopedic Surgery 03/28/17 documented as of this encounter
--- OUTSIDE RECORDS SUMMARY | 2024-11-04 13:17 | XMS_ITS | Encounter Summary ---
Author Organization [facility] Address [facility] [place] [address] Care Team Providers Care Personal Banking Representative Name Role Phone Deandre Bojorquez MD Unavailable [phone] Jeff Strickland MD Primary Care Provider [phone] Encounter Details Date Type Department Care Team (Late st Contact Info) Description 11/21/2023 Lab Requisition [facility] MAIN LAB [address] [place] [phone] Alan Davenport MD [facility] [place] [address] Social History Tobacco Use Types Packs/Day Years Used Date Smoking Tobacco: Never Smokeless Tobacco: Never Alcohol Use Standard Drinks/Week Comments Not Currently 0 (1 standard drink = 0.6 oz pur e alcohol) socially in past Sex and Gender Information Value Date Recorded Sex Assigned at Male 07/02/2021 2:37 PM CDT 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 Gender Identity Male 07/02/2021 2:37 PM [...] 12/06/2024 10:40 AM CDT Office Visit [facility] Physician Group - Endocrinology [address] [facility], [place] [address] Marbin Flores MD 1201 [facility] DIV [place] [address] Niraj Turner MD 1225 [facility] 2L [place] [address] documented as of this encounter Procedures Procedure [...] F inal Result [facility] ([facility]) [address] [place] [address], [facility] documented in this encounter Visit Diagnoses Not on filedocumented in this encounter Additional Health Concerns Infection Onset Date Last Indicated Resolved Time COVID-19 Under Investigation 09/13/2024 09/13/2024 09/13/2024 6:36 AM CDT documented as of this encounter Care Teams Personal Banking Representative Relationship Specialty Start Date End Date Jeff Strickland MD [address] [place] [address] PCP - General 03/05/18 [place] [address] [place] [address] Orthopedic Surgery 03/28/17 documented as of this encounter
--- OUTSIDE RECORDS SUMMARY | 2024-11-04 13:17 | XMS_ITS | Encounter Summary ---
Author Organization [facility] Address [address] [place] [address] Care Team Providers Care Steward/Stewardess Dining Room Name Role Phone Deandre Bojorquez MD Unavailable [phone] Jeff Strickland MD Primary Care Provider [phone] Encounter Details Date Type Department Care Team (Late st Contact Info) Description 10/28/2023 Lab Requisition [facility] MAIN LAB [address] [place] [phone] Alan Davenport MD [facility]1 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 [place] [place] [address] Marbin Flores MD 1201 [facility] DIV [place] [address] Niraj Turner MD 1225 [facility] 2L [place] [address] documented as of this encounter Procedures Procedure Name Priority Date/Time Associated Diagnosis Comments HOLD HLA SPECIMEN Routine 10/22/2023 3:5 0 PM CDT documented in this encounter Results * HOLD HLA SPECIMEN (10/22/2023 3:50 PM CDT) Hold HLA Specimen 10/28/2023 5:00 PM CDT [facility] (NORTH) Comment:The Hold HLA specime n has been received into the lab and will be held for 5 years at 4 degrees. Blood BLOOD SPECIMEN / Unknown 10/22/2023 3:50 PM CDT 10/28/2023 3:50 PM CDT Alan Davenport MD LAB - BLOOD BANK ORDERABLES F inal Result [facility] ([facility]) [address] [place] [address], [facility] documented in this encounter Visit Diagnoses Not on filedocumented in this encounter Additional Health Concerns Infection Onset Date Last Indicated Resolved Time COVID-19 Under Investigation 09/13/2024 09/13/2024 09/13/2024 6:36 AM CDT documented as of this encounter Care Teams Steward/Stewardess Dining Room Relationship Specialty Start Date End Date Jeff Strickland MD [address] [place] [address] PCP - General 03/05/18 [place] [address] [place] [address] Orthopedic Surgery 03/28/17 documented as of this encounter
--- OUTSIDE RECORDS SUMMARY | 2024-11-04 13:17 | XMS_ITS | Encounter Summary ---
Author Organization [facility] Address [address] [place] [address] Care Team Providers Care Packaging Supervisor Name Role Phone Deandre Bojorquez MD Unavailable [phone] Jeff Strickland MD Primary Care Provider [phone] Encounter Details Date Type Department Care Team (Late st Contact Info) Description 03/30/2024 Lab Requisition [facility] MAIN LAB [address] [place] [phone] Alan Davenport MD [facility]1 [facility] [place] [address] Social History Tobacco Use Types Packs/Day Years Used Date Smoking Tobacco: Never Smokeless Tobacco: Never Alcohol Use Standard Drinks/Week Comments Not Currently 0 (1 standard drink = 0.6 oz pur e alcohol) socially in past Sex and Gender Information Value Date Recorded Sex Assigned at Male 07/02/2021 2:37 PM CDT Legal Sex Male 10:14 PM GO CART MECHANIC Gender Identity Male 07/02/2021 2:37 PM [...] Description 12/06/2024 10:40 AM CDT Office Visit [facility] Physician Group - Endocrinology 12[address] [facility], [place] [address] Marbin Flores MD 1201 [facility] DIV [place] [address] Niraj Turner MD 1225 [facility] 2L [place] [address] documented as of this encounter Procedures Procedure Name Priority Date/Time Associated Diagnosis Comments HOLD HLA SPECIMEN Routine 03/25/2024 2:5 1 PM GO CART MECHANIC documented in this encounter Results * HOLD HLA SPECIMEN (03/25/2024 2:51 PM GO CART MECHANIC) Hold HLA Specimen 03/30/2024 4:01 PM GO CART MECHANIC [facility] (NORTH) Comment:The Hold HLA specime n has been received into the lab and will be held for 5 years at 4 degrees. Blood BLOOD SPECIMEN / Unknown 03/25/2024 2:51 PM GO CART MECHANIC 03/30/2024 2:51 PM GO CART MECHANIC Alan Davenport MD LAB - BLOOD BANK ORDERABLES F inal Result [facility] [address] [place] [address], [facility] documented in this encounter Visit Diagnoses Not on filedocumented in this encounter Additional Health Concerns Infection Onset Date Last Indicated Resolved Time COVID-19 Under Investigation 09/13/2024 09/13/2024 09/13/2024 6:36 AM CDT documented as of this encounter Care Teams Packaging Supervisor Relationship Specialty Start Date End Date Jeff Strickland MD [address] [place] [address] PCP - General 03/05/18 [place] [address] [address] Orthopedic Surgery 03/28/17 documented as of this encounter
--- OUTSIDE RECORDS SUMMARY | 2024-11-04 13:17 | XMS_ITS | Encounter Summary ---
Author Organization [facility] Address [address] [place] [address] Care Team Providers Care Hurricane Tracker Name Role Phone Deandre Bojorquez MD Unavailable [phone] Jeff Strickland MD Primary Care Provider [phone] Encounter Details Date Type Department Care Team (Late st Contact Info) Description 02/04/2024 Lab Requisition [facility] MAIN LAB [address] [place] [phone] Alan Davenport MD [facility] [place] [address] Social History Tobacco Use Types Packs/Day Years Used Date Smoking Tobacco: Never Smokeless Tobacco: Never Alcohol Use Standard Drinks/Week Comments Not Currently 0 (1 standard drink = 0.6 oz pur e alcohol) socially in past Sex and Gender Information Value Date Recorded Sex Assigned at Male 07/02/2021 2:37 PM CDT Legal Sex Male 10:14 PM EDUCATION OFFICER Gender Identity Male 07/02/2021 2:37 PM [...] [facility] - Endocrinology [address] [facility], [place] [address] Marbin Flores MD 1201 [facility] DIV [place] [address] Niraj Turner MD 1225 [facility] 2L Div [place] [address] documented as of this encounter Procedures Procedure Name Priority Date/Time Associated Diagnosis Comments HOLD HLA SPECIMEN Routine 01/27/2024 3:2 3 PM EDUCATION OFFICER documented in this encounter Results * HOLD HLA SPECIMEN (01/27/2024 3:23 PM EDUCATION OFFICER) Hold HLA Specimen 02/04/2024 4:31 PM EDUCATION OFFICER [facility] (NORTH) Comment:The Hold HLA specime n has been received into the lab and will be held for 5 years at 4 degrees. Blood BLOOD SPECIMEN / Unknown 01/27/2024 3:23 PM EDUCATION OFFICER 02/04/2024 3:23 PM EDUCATION OFFICER Alan Davenport MD LAB - BLOOD BANK ORDERABLES F inal Result [facility]) [address] [place] [address], [facility] documented in this encounter Visit Diagnoses Not on filedocumented in this encounter Additional Health Concerns Infection Onset Date Last Indicated Resolved Time COVID-19 Under Investigation 09/13/2024 09/13/2024 09/13/2024 6:36 AM CDT documented as of this encounter Care Teams Hurricane Tracker Relationship Specialty Start Date End Date Jeff Strickland MD [address] [place] [address] PCP - General 03/05/18 [place] [address] [address] Orthopedic Surgery 03/28/17 documented as of this encounter
--- OUTSIDE RECORDS SUMMARY | 2024-11-04 13:17 | XMS_ITS | Encounter Summary ---
Author Organization [facility] Address [address] [place] [address] Care Team Providers Care Grades 9 12 Tutor Name Role Phone Deandre Bojorquez MD Unavailable [phone] Jeff Strickland MD Primary Care Provider [phone] Encounter Details Date Type Department Care Team (Late st Contact Info) Description 02/07/2023 Lab Requisition 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 Gender Identity Male 07/02/2021 2:37 PM CDT [...] Description 12/06/2024 10:40 AM CDT Office Visit [facility] Physician Group - Endocrinology [address] [facility], [place] [address] Marbin Flores MD 1201 [facility] DIV OF ABD [place] [address] Niraj Turner MD 1225 [facility] 2L [place] [address] documented as of this encounter Procedures Procedure Name Priority Date/Time Associated Diagnosis Comments HOLD HLA SPECIMEN Routine 2023 7:5 8 AM INSTRUCTOR DANCING documented in this encounter Results * HOLD HLA SPECIMEN (2023 7:58 AM INSTRUCTOR DANCING) Hold HLA Specimen 02/07/2023 9:01 AM INSTRUCTOR DANCING [facility] (NORTH) Comment:The Hold HLA specime n has been received into the lab and will be held for 5 years at 4 degrees. Blood BLOOD SPECIMEN / Unknown 2023 7:58 AM INSTRUCTOR DANCING 02/07/2023 7:59 AM INSTRUCTOR DANCING Alan Davenport MD LAB - BLOOD BANK ORDERABLES F inal Result [facility] [address] [place] [address], [facility] documented in this encounter Visit Diagnoses Not on filedocumented in this encounter Additional Health Concerns Infection Onset Date Last Indicated Resolved Time COVID-19 Under Investigation 09/13/2024 09/13/2024 09/13/2024 6:36 AM CDT documented as of this encounter Care Teams Grades 9 12 Tutor Relationship Specialty Start Date End Date Jeff Strickland MD [address] [place] [address] PCP - General 03/05/18 [place] [address] [address] Orthopedic Surgery 03/28/17 documented as of this encounter
--- OUTSIDE RECORDS SUMMARY | 2024-11-04 13:17 | XMS_ITS | Encounter Summary ---
Author Organization [facility] Address [address] [place] [address] Care Team Providers Care Corset Fitter Name Role Phone Deandre Bojorquez MD Unavailable [phone] Jeff Strickland MD Primary Care Provider [phone] Encounter Details Date Type Department Care Team (Late st Contact Info) Description 03/12/2024 Lab Requisition [facility] MAIN LAB [address] [place] [phone] Alan Davenport MD [facility]1 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 Gender Identity Male 07/02/2021 2:37 PM [...] [facility] - Endocrinology 12[address] [facility], [place] [address] Marbin Flores MD 1201 [facility] DIV [place] [address] Niraj Turner MD 1225 [facility] 2L [place] [address] documented as of this encounter Procedures Procedure Name Priority Date/Time Associated Diagnosis Comments HOLD HLA SPECIMEN Routine 03/05/2024 1:4 0 PM COMPLIANCE FIELD TECHNICIAN documented in this encounter Results * HOLD HLA SPECIMEN (03/05/2024 1:40 PM COMPLIANCE FIELD TECHNICIAN) Hold HLA Specimen 03/12/2024 3:[address] [facility] (NORTH) Comment:The Hold HLA specime n has been received into the lab and will be held for 5 years at 4 degrees. Blood BLOOD SPECIMEN / Unknown 03/05/2024 1:40 PM COMPLIANCE FIELD TECHNICIAN 03/12/2024 1:40 PM COMPLIANCE FIELD TECHNICIAN Alan Davenport MD LAB - BLOOD BANK ORDERABLES F inal Result [facility]) [address] [place] [address], [facility] documented in this encounter Visit Diagnoses Not on filedocumented in this encounter Additional Health Concerns Infection Onset Date Last Indicated Resolved Time COVID-19 Under Investigation 09/13/2024 09/13/2024 09/13/2024 6:36 AM CDT documented as of this encounter Care Teams Corset Fitter Relationship Specialty Start Date End Date Jeff Strickland MD [address] [place] [address] PCP - General 03/05/18 [place] [address] [address] Orthopedic Surgery 03/28/17 documented as of this encounter
--- OUTSIDE RECORDS SUMMARY | 2024-11-04 13:17 | XMS_ITS | Encounter Summary ---
Author Organization [facility] Address [address] [place] [address] Care Team Providers Care Milliner Helper Name Role Phone Deandre Bojorquez MD Unavailable [phone] Jeff Strickland MD Primary Care Provider [phone] Encounter Details Date Type Department Care Team (Late st Contact Info) Description 09/30/2023 Lab Requisition [facility] MAIN LAB [address] [place] [phone] Alan Davenport MD [facility]1 [facility] OF [place]BD [place] [address] Social History Tobacco Use Types Packs/Day Years Used Date Smoking Tobacco: Never Smokeless Tobacco: Never Alcohol Use Standard Drinks/Week Comments Not Currently 0 (1 standard drink = 0.6 oz pur e alcohol) socially in past Sex and Gender Information Value Date Recorded Sex Assigned at Male 07/02/2021 2:37 PM CDT 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 2L [place] [address] documented as of this encounter Procedures Procedure Name Priority Date/Time Associated Diagnosis Comments HOLD HLA SPECIMEN Routine 09/24/2023 3:2 7 PM CDT documented in this encounter Results * HOLD HLA SPECIMEN (09/24/2023 3:27 PM CDT) Hold HLA Specimen 09/30/2023 4:32 PM CDT [facility]OR[facility] (NORTH) Comment:The Hold HLA specime n has been received into the lab and will be held for 5 years at 4 degrees. Blood BLOOD SPECIMEN / Unknown 09/24/2023 3:27 PM CDT 09/30/2023 3:27 PM CDT Alan Davenport MD LAB - BLOOD BANK ORDERABLES F inal Result [facility] ([facility]AK[facility]) [address] [place] [address], [facility] documented in this encounter Visit Diagnoses Not on filedocumented in this encounter Additional Health Concerns Infection Onset Date Last Indicated Resolved Time COVID-19 Under Investigation 09/13/2024 09/13/2024 09/13/2024 6:36 AM CDT documented as of this encounter Care Teams Milliner Helper Relationship Specialty Start Date End Date Jeff Strickland MD [address] [place] [address] PCP - General 03/05/18 [place] [address] [place] [address] Orthopedic Surgery 03/28/17 documented as of this encounter
--- OUTSIDE RECORDS SUMMARY | 2024-11-04 13:17 | XMS_ITS | Encounter Summary ---
Author Organization [facility] Address [address] [place] [address] Care Team Providers Care Construction Estimator Name Role Phone Deandre Bojorquez MD Unavailable [phone] Jeff Strickland MD Primary Care Provider [phone] Encounter Details Date Type Department Care Team (Late st Contact Info) Description 07/31/2023 Lab Requisition [facility] MAIN LAB [address] [place] [phone] Alan Davenport MD [facility] [place]1 [facility] OF ABD TRANSPLANT [place] [address] Social History Tobacco Use Types Packs/Day Years Used Date Smoking Tobacco: Never Smokeless Tobacco: Never Alcohol Use Standard Drinks/Week Comments Not Currently 0 (1 standard drink = 0.6 oz pur e alcohol) socially in past Sex and Gender Information Value Date Recorded Sex Assigned at Male 07/02/2021 2:37 PM CDT Legal Sex Male 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, [place] [address] Marbin Flores MD 1201 [facility] DIV OF ABD TRANSPLANT [place] [address] Niraj Turner MD [address] [facility] 2L [place] [address] documented as of this encounter Procedures Procedure Name Priority Date/Time Associated Diagnosis Comments HOLD HLA SPECIMEN Routine 07/23/2023 2:0 5 PM CDT documented in this encounter Results * HOLD HLA SPECIMEN (07/23/2023 2:05 PM CDT) Hold HLA Specimen 07/31/2023 3:32 PM CDT [facility]OR[facility] (NORTH) Comment:The Hold HLA specime n has been received into the lab and will be held for 5 years at 4 degrees. Blood BLOOD SPECIMEN / Unknown 07/23/2023 2:05 PM CDT 07/31/2023 2:06 PM CDT Alan Davenport MD LAB - BLOOD BANK ORDERABLES F inal Result [facility] ([facility]) [address] [place] [address], [facility] documented in this encounter Visit Diagnoses Not on filedocumented in this encounter Additional Health Concerns Infection Onset Date Last Indicated Resolved Time COVID-19 Under Investigation 09/13/2024 09/13/2024 09/13/2024 6:36 AM CDT documented as of this encounter Care Teams Construction Estimator Relationship Specialty Start Date End Date Jeff Strickland MD [address] [place] [address] PCP - General 03/05/18 [place] [address] [facility] [address] [place] [address] Orthopedic Surgery 03/28/17 documented as of this encounter
--- OUTSIDE RECORDS SUMMARY | 2024-11-04 13:17 | XMS_ITS | Encounter Summary ---
Author Organization [facility] Address [facility] [place] [address] Care Team Providers Care Electrical Logger Name Role Phone Deandre Bojorquez MD Unavailable [phone] Jeff Strickland MD Primary Care Provider [phone] Encounter Details Date Type Department Care Team (Late st Contact Info) Description 04/10/2023 Lab Requisition [facility] [address] [place] [id number] Alan Davenport MD [facility]1 [facility] [place] [address] Social History Tobacco Use Types Packs/Day Years Used Date Smoking Tobacco: Never Smokeless Tobacco: Never Alcohol Use Standard Drinks/Week Comments Not Currently 0 (1 standard drink = 0.6 oz pur e alcohol) socially in past Sex and Gender Information Value Date Recorded Sex Assigned at Male 07/02/2021 2:37 PM CDT Legal Sex Male 10:14 PM NET SOLUTIONS ARCHITECT Gender Identity Male 07/02/2021 2:37 PM CDT [...] [facility] [address] [facility], [place] [address] Marbin Flores MD [address] [facility] DIV [place] [address] Niraj Turner MD [address] [facility] 2L [place] [address] documented as of this encounter Procedures Procedure Name Priority Date/Time Associated Diagnosis Comments HOLD HLA SPECIMEN Routine 04/02/2023 3:0 1 PM NET SOLUTIONS ARCHITECT documented in this encounter Results * HOLD HLA SPECIMEN (04/02/2023 3:01 PM NET SOLUTIONS ARCHITECT) Hold HLA Specimen 04/10/2023 4:01 PM NET SOLUTIONS ARCHITECT [facility]) Comment:The Hold HLA specime n has been received into the lab and will be held for 5 years at 4 degrees. Blood BLOOD SPECIMEN / Unknown 04/02/2023 3:01 PM NET SOLUTIONS ARCHITECT 04/10/2023 3:01 PM NET SOLUTIONS ARCHITECT Alan Davenport MD LAB - BLOOD BANK ORDERABLES F inal Result [facility] [address] [place] [address], [facility] documented in this encounter Visit Diagnoses Not on filedocumented in this encounter Additional Health Concerns Infection Onset Date Last Indicated Resolved Time COVID-19 Under Investigation 09/13/2024 09/13/2024 09/13/2024 6:36 AM CDT documented as of this encounter Care Teams Electrical Logger Relationship Specialty Start Date End Date Jeff Strickland MD [address] [place] [address] PCP - General 03/05/18 [place] [address] [address] Orthopedic Surgery 03/28/17 documented as of this encounter
--- OUTSIDE RECORDS SUMMARY | 2024-11-04 13:17 | XMS_ITS | Encounter Summary ---
Author Organization [facility] Address [address] [place] [address] Care Team Providers Care Salvage Supervisor Name Role Phone Deandre Bojorquez MD Unavailable [phone] Jeff Strickland MD Primary Care Provider [phone] Encounter Details Date Type Department Care Team (Late st Contact Info) Description 04/29/2024 Lab Requisition [facility] [address] [place] [phone] Alan Davenport MD [facility] [place] [address] Social History Tobacco Use Types Packs/Day Years Used Date Smoking Tobacco: Never Smokeless Tobacco: Never Alcohol Use Standard Drinks/Week Comments Not Currently 0 (1 standard drink = 0.6 oz pur e alcohol) socially in past Sex and Gender Information Value Date Recorded Sex Assigned at Male 07/02/2021 2:37 PM CDT Legal Sex Male 10:14 PM PORTABLE MACHINE CUTTER Gender Identity Male 07/02/2021 2:37 PM CDT [...] Description 12/06/2024 10:40 AM CDT Office Visit [facility] - Endocrinology [address] [facility], [place] [address] Marbin Flores MD [address] [facility] DIV [place] [address] Niraj Turner MD [address] [facility] 2L Div [place] [address] documented as of this encounter Procedures Procedure Name Priority Date/Time Associated Diagnosis Comments HOLD HLA SPECIMEN Routine 04/27/2024 1:4 8 PM CDT documented in this encounter Results * HOLD HLA SPECIMEN (04/27/2024 1:48 PM CDT) Hold HLA Specimen 04/29/2024 3:02 PM CDT [facility] ([facility]) Comment:The Hold HLA specime n has been received into the lab and will be held for 5 years at 4 degrees. Blood BLOOD SPECIMEN / Unknown 04/27/2024 1:48 PM CDT 04/29/2024 1:49 PM CDT Alan Davenport MD LAB - BLOOD BANK ORDERABLES F inal Result [facility] [address] [place] [address], [facility] documented in this encounter Visit Diagnoses Not on filedocumented in this encounter Additional Health Concerns Infection Onset Date Last Indicated Resolved Time COVID-19 Under Investigation 09/13/2024 09/13/2024 09/13/2024 6:36 AM CDT documented as of this encounter Care Teams Salvage Supervisor Relationship Specialty Start Date End Date Jeff Strickland MD [address] [place] [address] PCP - General 03/05/18 [place] [address] [place] [address] Orthopedic Surgery 03/28/17 documented as of this encounter
--- OUTSIDE RECORDS SUMMARY | 2024-11-04 13:18 | XMS_ITS ---
Author Organization [facility] Address [facility] [place] [address] Care Team Providers Care Restaurant Lead Name Role Phone Jeff Strickland MD Primary Care Provider Chan Nicholas MD Unavailable Alan Mccall MD Unavailable [phone] Pepito Haro MD PhD Unavailable Solange Guido MD Unavailable [phone] Active Problems Problem Noted Date Diagnosed Date [...] damage Assessment & Plan (03/09/2024 6:25 PM GEAR ROOM KEEPER): Vision OD trends mild improvement, though still [...] We discussed that genetic results would not sales and service change leader. Given we have exhausted available treatment without [...] have patient return to [facility] retina in 4 weeks for [...] 03/26/2021 Assessment & Plan (03/26/2021 1:17 PM GEAR ROOM KEEPER): Enlarged mild sella turcica on a routine [...] units Assessment & Plan (03/26/2021 1:17 PM GEAR ROOM KEEPER): Chronic, uncontrolled, improving A1c today 7.7 % [...] WNL Assessment & Plan (03/26/2021 1:16 PM GEAR ROOM KEEPER): Pt currently on Levothyroxine 112 mcg oral [...] 11/18/2018 Assessment & Plan (01/21/2019 2:02 PM GEAR ROOM KEEPER): Symptomatic. Will request for esophageal manometry. Continue [...] well Assessment & Plan (03/26/2021 1:16 PM GEAR ROOM KEEPER): On statin therapy Tolerating well Last lipid [...] nephrectomy. 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 [id number] Current Treatment and Therapy Plans No current [...] were not included. Kendall Carl 1955 Referring Wool Cleaner: Alan Mccall Dialysis Info: NOD GFR 13 Type: Time: (Not currently on dialysis) days Blood Type: O NEG Body mass index is 37.36 kg/m . ALERTS Boring Machine Operator Horizontal: needs to establish Past Medical History: Diagnosis Date Arthropathy RA. Dr Strickland manages. CHF (congestive heart failure) 2 yrs ago Manager Track is Dr. Becerra in [place]. CKD (chronic kidney disease), stage V Community acquired pneumonia 2018 [facility] hospitalized. Diabetes mellitus 20 years. Lantus pen. Esophageal reflux takes med Hypercholesteremia 5-10 yrs meds Hypertension takes meds Hypothyroidism meds 20 years Kidney stones 5-6 years ago had 2 in the same year. Malignancy right kidney 2012 Obstructive sleep apnea 3 years. [facility]. [place] remember doctors name Renal cell [...] file Gets together: Not on file Attends christian service: Not on file Active member of [...] is the impression of this social media senior associate that Kendall Carl has several positive factors for Kidney transplant candidacy from a psychosocial perspective. Patient appears to have appropriate knowledge of illness. Patient has sufficient insurance coverage and stable financial situation for post transplant needs. No concerns regarding substance abuse, legal issues, or mental health needs. Patient has adequate support system and appropriate discharge plan. Plan: medicine worker to provide supportive services as needed. Patient appears to be a reasonable candidate for transplant from a psychosocial perspective. -Post transplant arrangement forms are needed prior to being listed. -Updated toxicology results needed, per protocol Psychiatric Consult Recommended: No Transplant Senior Economist: Joy Tam LCSW RD: 11/09/2019 BMI= 36.2, [...] 11/18/201803/25 Assessment & Plan (01/21/2019 2:02 PM GEAR ROOM KEEPER): The pain is persistent. The patient described [...] has had extensive cardiac workup by the isolation washer including coronary angiogram. He has chest pain [...]
--- OUTSIDE RECORDS SUMMARY | 2024-11-04 13:18 | XMS_ITS | Encounter Summary ---
Author Organization [facility] Address [address] [place] [address] Care Team Providers Care Dairy Cattle Farm Worker Name Role Phone Deandre Bojorquez MD Unavailable [phone] Jeff Strickland MD Primary Care Provider [phone] Encounter Details Date Type Department Care Team (Late st Contact Info) Description 09/24/2024 Results Follow-Up [facility] Early Admission Unit [address] [place] [id number] Angel Crook MD [address] [place] [address] Social History Tobacco Use Types Packs/Day Years [...] and heating? Not hard at all 09/24/2024 [facility] [place] of Occupat ional Health - Occupational Stress [...] any time in the past 12 m [facility], were you homeless or living in a halfway (including now)? No 09/24/2024 Sex and Gender Information Value Date Recorded Sex Assigned at Male 07/02/2021 2:37 PM CDT Legal Sex Male 10:14 PM PROGRAM EVALUATION CONSULTANT Gender Identity Male 07/02/2021 2:37 PM [...] Description 12/06/2024 10:40 AM CDT Office Visit [facility] - Endocrinology [address] [place] [address], [place] [address] Marbin Flores MD [address] [facility] DIV [place] [address] Niraj Turner MD [address] [facility] 2L [place] [address] documented as of this encounter Visit Diagnoses Not on filedocumented in this encounter Care Teams Dairy Cattle Farm Worker Relationship Specialty Start Date End Date Jeff Strickland MD [address] [place] [address] PCP - General 03/05/18 [place] [address] [place] [address] Orthopedic Surgery 03/28/17 documented as of this encounter
--- OUTSIDE RECORDS SUMMARY | 2024-11-04 13:18 | XMS_ITS | Clinical Summary ---
Author Organization [facility] Address [address] [place] [address] Care Team Providers Care Steam Distribution Supervisor Name Role Phone Jeff Strickland MD [...] mouth daily. Active nystatin-triamc inolone (MYCOLOG II) 891600-3.1 UNIT/GM-% Cream 5 Active ondansetron (ZOFRAN-ODT) 4 [...] 10/29/2024 Telephone [facility] - Cardiology [facility] [address] [place] [address] Suly Smith APRN, MISSION ANALYST 10/15/2024 Telephone [facility] Cardiology [facility] [address] [place] [address] Hannah Goodman MD 10/14/2024 2:40 PM CDT Clinical Support [facility] [address] [place] [phone] [facility] Dressing change (Primary Dx) Discharge [...] Medical Group - Cardiology - [facility] [place] [address] Hannah Goodman MD 2 [facility] [address] [facility] [address] [place] [address] 04/11/2025 11:30 AM ENERGY MANAGEMENT SPECIALIST Office Visit [facility] - Cardiology - [place] [address] [place] [address] Maylin Cutler, 2 [facility] [address] [place] [address] Health Maintenance Due Date Last Done Comments [...] topic Insurance MEDICARE C AETNA Care Teams Steam Distribution Supervisor Relationship Specialty Start Date End Date Jeff Strickland MD [address] [place] [address] PCP - General Family Medicine 10/14/24
--- OUTSIDE RECORDS SUMMARY | 2024-11-04 13:18 | XMS_ITS | Clinical Summary ---
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 unspecified whether salt river or transplanted heart Abnormal findings on cardiac catheterization CCL STAGED PERC CORONARY INTERVENTION Routine 09/01/2024 2:18 PM CDT Abnormal stress test Dyspnea on exertion Pre-kidney transplant, listed Coronary artery disease with angina pectoris, unspecified vessel or lesion type, unspecified whether salt river or transplanted heart Abnormal findings on cardiac catheterization GLUCOSE - POINT OF CARE Routine 09/01/2024 10:00 AM CDT CBC W/O DIFFERENTIAL ANDIE 09/01/2024 9:57 AM CDT Coronary artery disease with angina pectoris, unspecified vessel or lesion type, unspecified whether salt river or transplanted heart Abnormal findings on cardiac catheterization BASIC METABOLIC PANEL (CALCIUM TOTAL) ANDIE 09/01/2024 9:57 AM CDT Coronary artery disease with angina pectoris, unspecified vessel or lesion type, unspecified whether salt river or transplanted heart Abnormal findings on [...] Routine 08/18/2024 2:33 PM CDT 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) ACT LR - POCT ([facility]) Routine 08/18/2024 2:08 PM CDT ACT LR - POCT ([facility]) Routine 08/18/2024 1:24 PM CDT ACT LR - POCT ([facility]) Routine 08/18/2024 12:57 PM CDT ACT LR - POCT ([facility]) Routine 08/18/2024 12:13 PM CDT ANGIOPLASTY PERIPHERAL ARTERY 08/18/2024 10:49 AM CDT 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) GLUCOSE - POINT OF CARE Routine 08/18/2024 10:15 AM CDT BASIC METABOLIC PANEL (CALCIUM TOTAL) ANDIE 08/18/2024 10:11 AM CDT 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) CBC W/O DIFFERENTIAL ANDIE 08/18/2024 10:01 AM CDT 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 Lactic Acid-Stat 1.9 <=2.0 mmol/L 10/28/2024 3:06 AM CDT [facility] Blood BLOOD SPECIMEN / Unknown Venipuncture / Unknown 10/28/2024 2:31 AM CDT 10/28/2024 2:37 AM CDT Savanna Mcfarlane MD LAB - CHEMISTRY ORDERABLES nal Result [address] [address], [place] [phone] * XR Chest 2Vw (10/27/2024 11:58 PM CDT) Only the most recent of4 resultswithin the time period is included. Anatomical Region Laterality Modality Chest Digital Radiogra phy 10/28/2024 12:0 2 AM CDT Narrative 10/28/2024 3:32 AM CDT PROCEDURE: XR CHEST 2VW, DATE/TIME OF EXAM: 10/27/2024 11:58 PM, LOCATION [facility] INDICATION: R07.9: Chest pain, unspecified type [...] shoulders. > Dictated by Branden Jha MD, (vice president lending). > Dictated by Special Population Paraprofessional I, Blake Plasencia MD have personally reviewed and interpreted this examination/study. > Interpreting Provider: Blake Plasencia MD on 10/28/2024 3:32 AM Procedure Note Blake Plasencia MD - 10/28/2024 PROCEDURE: XR CHEST 2VW, DATE/TIME OF EXAM: 10/27/2024 11:58 PM, LOCATION [facility] INDICATION: R07.9: Chest pain, unspecified type [...] shoulders. > Dictated by Branden Jha MD, (vice president lending). > Dictated by Special Population Paraprofessional I, Blake Plasencia MD have personally reviewed and interpreted this examination/study. > Interpreting Provider: Blake Plasencia MD on 10/28/2024 3:32 AM Savanna Mcfarlane MD DIAGNOSTIC IMAGING ORDERABLES Final Result * (ABNORMAL) TROPONIN-I HIGH SENSITIVE BASELINE + 1HR (10/27/2024 11:53 PM CDT) Only the most recent of8 resultswithin the time period is included. [facility] Troponin I High Sensitive 72(H) <=35 ng/L 10/28/2024 12:49 AM [facility] Blood BLOOD SPECIMEN / Unknown Venipuncture / Unknown 10/27/2024 11:53 PM CDT 10/28/2024 12:12 AM CDT us Savanna Mcfarlane MD LAB - CHEMISTRY ORDERABLES [facility] Result [facility] [address] [place] [address], [facility] [phone] * (ABNORMAL) CBC W AUTO DIFFERENTIAL (10/27/2024 11:53 PM CDT) Only the most recent of11 resultswithin the time period is included. [facility] WBC 7.8 4.0 - 10.7 x10E9/L 10/28/2024 12:26 AM [facility] RBC Count 3.31(L) 4.30 - 5.80 x10E12/L 10/28/2024 12:26 AM [facility] Hemoglobin 9.0(L) 13.3 - 17.5 g/dL 10/28/2024 12:26 AM [facility] Hematocrit 27.9(L) 38.7 - 51.1 % 10/28/2024 12:26 AM [facility] MCV 84.3 80.0 - 98.0 fL 10/28/2024 12:26 AM [facility] MCH 27.2 26.7 - 33.6 pg 10/28/2024 12:26 AM [facility] MCHC 32.3 31.7 - 36.3 g/dL 10/28/2024 12:26 AM [facility] RDW-CV 15.9(H) 11.3 - 14.8 % 10/28/2024 12:26 AM [facility] Platelet Count 187 150 - 420 x10E9/L 10/28/2024 12:26 AM [facility] MPV 10.2 7.8 - 11.4 fL 10/28/2024 12:26 AM [facility] Neutrophil % 67.0 41.0 - 74.0 % 10/28/2024 12:26 AM [facility] Lymphocyte % 16.4(L) 17.0 - 47.0 % 10/28/2024 12:26 AM [facility] Monocyte % 14.0(H) 3.0 - 11.0 % 10/28/2024 12:26 AM [facility] Eosinophil % 1.9 0.0 - 7.0 % 10/28/2024 12:26 AM [facility] Basophil % 0.1 0.0 - 1.6 % 10/28/2024 12:26 AM [facility] Immature Granulocytes % 0.6 0.0 - 1.0 % 10/28/2024 12:26 AM [facility] Neutrophil Absolute 5.23 1.60 - 7.50 x10E9/L 10/28/2024 12:26 AM [facility] Lymphocyte Absolute 1.28 1.00 - 4.40 x10E9/L 10/28/2024 12:26 AM [facility] Monocyte Absolute 1.09(H) 0.15 - 1.00 x10E9/L 10/28/2024 12:26 AM [facility] Eosinophil Absolute 0.15 0.00 - 0.60 x10E9/L 10/28/2024 12:26 AM [facility] Basophil Absolute 0.01 0.00 - 0.13 x10E9/L 10/28/2024 12:26 AM [facility] Blood BLOOD SPECIMEN / Unknown Venipuncture / Unknown 10/27/2024 11:53 PM CDT 10/28/2024 12:13 AM CDT us Savanna Mcfarlane MD LAB - HEMATOLOGY ORDERABLES F inal Result [facility] [address] [place] [address], [facility] [phone] * (ABNORMAL) COMPREHENSIVE METABOLIC PANEL (10/27/2024 11:53 PM CDT) Only the most recent of13 resultswithin the time period is included. BUN 34(H) 7 - 26 mg/dL 10/28/2024 12:45 AM [facility] Creatinine 7.86(H) 0.71 - 1.16 mg/dL 10/28/2024 12:45 AM [facility] Sodium 132(L) 136 - 145 mmol/L 10/28/2024 12:45 AM [facility] Potassium 3.5 3.5 - 4.5 mmol/L 10/28/2024 12:45 AM [facility] Chloride 95(L) 98 - 107 mmol/L 10/28/2024 12:45 AM [facility] CO2 25 22 - 29 mmol/L 10/28/2024 12:45 AM [facility] Glucose 104(H) 70 - 99 mg/dL 10/28/2024 12:45 AM [facility] Calcium 8.5 8.4 - 10.2 mg/dL 10/28/2024 12:45 AM [facility] Protein Total 5.6(L) 6.0 - 8.3 g/dL 10/28/2024 12:45 AM [facility] Albumin 2.2(L) 3.4 - 5.0 g/dL 10/28/2024 12:45 AM [facility] Bilirubin Total 0.3 0.2 - 1.2 mg/dL 10/28/2024 12:45 AM [facility] Alkaline Phosphatase 104 40 - 150 U/L 10/28/2024 12:45 AM [facility] ALT 56(H) 5 - 55 U/L 10/28/2024 12:45 AM [facility] AST 48(H) 5 - 34 U/L 10/28/2024 12:45 AM [facility] Anion Gap 12 6 - 16 10/28/2024 12:45 AM [facility] BUN/Creatinine Ratio 4(L) 7 - 23 10/28/2024 12:45 AM [facility] Osmolality Calculated 282 275 - 295 mOsm/kg 10/28/2024 12:45 AM CDT [facility] Albumin/Globulin Ratio 0.6(L) 1.1 - 2.3 10/28/2024 12:45 AM CDT [facility] eGFR by CKD-EPI 7(L) >=90 mL/min/1.7 3 m2 10/28/2024 12:45 AM CDT [facility] Comment:Estimated Glomerular Filtration Rate (eGFR) calculated using the CKD-EPI Creatinine Equation (2020), per the National Kidney Foundation and [place] Society of Nephrology recommendations. Blood BLOOD SPECIMEN / Unknown Venipuncture / Unknown 10/27/2024 11:53 PM CDT 10/28/2024 12:12 AM CDT Savanna Mcfarlane MD LAB - CHEMISTRY ORDERABLES Fi nal Result Performing Organization Address [facility]/ZIP Co de Phone Number [address] [address], [place] [phone] * LIPASE BLOOD (10/27/2024 11:53 PM CDT) [...] ORDERABLES Fi nal Result Performing Organization Address [facility]/ZIP Co de Phone Number [address] [address], [place] [phone] * (ABNORMAL) PTH INTACT ([facility]) (10/21/2024 1:11 PM CDT) Only the most recent of2 resultswithin the time period is included. PTH Intact 316.8(H) 8.0 - 77.0 pg/mL 10/21/2024 1:56 PM CDT [facility] Blood BLOOD SPECIMEN / Unknown Lab Venipuncture / Unknown 10/21/2024 1:11 PM CDT 10/21/2024 1:23 PM CDT Result [facility] Becky Wilson MD LAB - CHEMISTRY ORDERABLES Fin al Result Performing Organization Address City/[facility]/ZIP Co de Phone Number [address] [address], [facility] [phone] * LAB MISC TEST (10/21/2024 1:11 PM CDT) Test Name PHOSPHO-TAU 217 PLASMA 10/25/2024 12:29 PM CDT [facility] Test Result See Scanned Report 10/25/2024 12:29 PM CDT [facility] Comment Ref Lab [place] 10/25/2024 12:29 PM CDT [facility] Blood BLOOD SPECIMEN / Unknown Lab Venipuncture / Unknown 10/21/2024 1:11 PM CDT 10/21/2024 1:15 PM CDT Result [facility] Becky Wilson MD LAB SEND OUT Final Result Performing Organization Address [facility] Co de Phone Number [facility] [address] [place] [address] * MAGNESIUM BLOOD (10/21/2024 1:11 PM CDT) Only the most recent of14 resultswithin the time period is included. Magnesium 1.6 1.6 - 2.6 mg/dL 10/21/2024 1:49 PM CDT [facility] Blood BLOOD SPECIMEN / Unknown Lab Venipuncture / Unknown 10/21/2024 1:11 PM CDT 10/21/2024 1:20 PM CDT Result [facility] Becky Wilson MD LAB - CHEMISTRY ORDERABLES Fin al Result Performing Organization Address City/[facility]/ZIP Co de Phone Number [address] [address], [facility] [phone] * AMMONIA (10/21/2024 1:11 PM CDT) Ammonia 30 <=72 umol/L 10/21/2024 1:32 PM CDT [facility] Blood BLOOD SPECIMEN / Unknown Lab Venipuncture / Unknown 10/21/2024 1:11 PM CDT 10/21/2024 1:15 PM CDT Becky Wilson MD LAB - CHEMISTRY ORDERABLES [facility] al Result [facility] [address] [place] [address], [facility] [phone] * CT Head Wo Contrast (10/19/2024 3:03 PM CDT) Only the most recent of4 resultswithin the time period is included. Anatomical Region Laterality Modality Head Computed Tomogra phy 10/19/2024 3:11 PM CDT Impressions 10/19/2024 3:41 PM CDT IMPRESSION: 1.No acute intracranial hemorrhage, territorial infarct, or significant mass effect. Report dictated by Saroj Linda MD, MD (vice president lending). > Dictated by Special Population Paraprofessional I, Raymundo Hanson MD have personally reviewed [...] Report dictated by Saroj Linda MD, MD (vice president lending). > Dictated by Special Population Paraprofessional I, Raymundo Hanson MD have personally reviewed and interpreted this examination/study. > Interpreting Provider: Raymundo Hanson MD on 10/19/2024 3:41 PM Alfreda Smith PA-C CT ORDERABLES Final Result * EKG 12-LEAD (10/19/2024 2:21 PM CDT) Only the most recent of6 resultswithin the time period is included. Pathologist [facility] Ventricular Rate 64 BPM [facility] MUSE Atrial Rate 64 BPM [facility] P-R Interval 146 ms [facility] QRS Duration ms 96 ms [facility] Q-T Interval ms 494 ms [facility] QTC Calculation (Bezet) 509 ms [facility] Calculated P [place] 69 degrees [facility] Calculated R [place] -63 degrees [facility] Calculated T [place] -90 degrees [facility] Interpretation EKG NORMAL SINUS RHYTHM LEFT ANTERIOR FASCICULAR BLOCK T WAVE ABNORMALITY, CONSIDER INFEROLATERAL ISCHEMIA PROLONGED QT ABNORMAL ECG . Confirmed by DOUG CAGLE MD ([id number]) on 10/23/2024 11:38:28 PM [facility] MUSE 10/19/2024 2:21 PM CDT 10/23/2024 11:38 PM CDT Alfreda Smith PA-C ECG ORDERABLES Edite d Result - Final [facility] * (ABNORMAL) B-TYPE NATRIURETIC PEPTIDE (10/17/2024 7:33 PM CDT) Only the most recent of3 resultswithin the time period is included. [facility] BNP 471(H) <100 pg/mL 10/17/2024 10:07 PM CDT [facility] Comment: A decision threshold of [...] LAB - CHEMISTRY ORDERABLES Fi nal Result [facility] [address] [place] [address], [facility] [phone] * XR CHEST 1VW PORTABLE (10/09/2024 7:27 PM CDT) Only the most recent of2 resultswithin the time period is included. Anatomical Region Laterality Modality Chest Digital Radiogra phy 10/09/2024 10:4 9 PM CDT Narrative 10/10/2024 1:17 AM CDT PROCEDURE: XR CHEST 1VW PORTABLE, DATE/TIME OF EXAM: 10/09/2024 7:27 PM, LOCATION [facility] INDICATION: R06.02: Short of breath on exertion ADDITIONAL CLINICAL INFORMATION: Ordering Provider Reason For Exam: r/o effusion, pneumonia Technologist Note: Additional: COMPARISON: Chest x-ray from 10/07/2024. FINDINGS/IMPRESSION: There is no focal consolidation, pleural effusion, or pneumothorax.The cardiomediastinal silhouette is normal. No displaced fractures identified. Hardware projecting over thoracic spine. > Dictated by Otis Bocanegra MD (vice president lending). > Dictated by Special Population Paraprofessional I, Blake Plasencia MD have personally reviewed and interpreted this examination/study. > Interpreting Provider: Blake Plasencia MD on 10/10/2024 1:17 AM Procedure Note Blake Plasencia MD - 10/10/2024 PROCEDURE: XR CHEST 1VW PORTABLE, DATE/TIME OF EXAM: 10/09/2024 7:27PM, LOCATION [facility] INDICATION: R06.02: Short of breath on exertion ADDITIONAL CLINICAL INFORMATION: Ordering Provider Reason For Exam: r/o effusion, pneumonia Technologist Note: Additional: COMPARISON: Chest x-ray from 10/07/2024. FINDINGS/IMPRESSION: There is no focal consolidation, pleural effusion, or pneumothorax.The cardiomediastinal silhouette is normal. No displaced fracturesidentified. Hardware projecting over thoracic spine. > Dictated by Otis Bocanegra MD (vice president lending). > Dictated by Special Population Paraprofessional I, Blake Plasencia MD have personally reviewed and interpreted this examination/study. > Interpreting Provider: Blake Plasencia MD on 10/10/2024 1:17 AM us Anjali Avelar MANAGER [employer]LE[employer] DIAGNOSTIC IMAGING O RDERABLES Final Result * (ABNORMAL) BLOOD GASES ABBEY + COOX PANEL (10/09/2024 4:39 PM CDT) Only the most recent of2 resultswithin the time period is included. pH Venous 7.41 7.32 - 7.42 pH 10/09/2024 5:04 PM [facility] pO2 Venous 34(L) 35 - 40 mmHg 10/09/2024 5:04 PM [facility] pCO2 Venous 44 40 - 50 mmHg 10/09/2024 5:04 PM [facility] HCO3 Venous 27.9 20 - 30 mmol/L 10/09/2024 5:04 PM [facility] Base Excess Venous 2.9(H) -2.0 - 2.0 mmol/L 10/09/2024 5:04 PM [facility] Oxyhemoglobin Venous 56.8 % 09/18 5:04 PM [facility] Comment:A^Absorbance Error Deoxyhemoglobin (HHB) Venous % 42.6 % 10/09/2024 5:04 PM [facility] Comment:A^Absorbance Error Methemoglobin <0.8 0.0 - 2.0 % 10/09/2024 5:04 PM [facility] Comment:A^Absorbance Error Carboxyhemoglobin 0.6 0.0 - 2.0 % 2024 5:04 PM [facility] Comment:A^Absorbance Error O2 Content Venous 7.7 Interpret within clinical context ml/dL 10/09/2024 5:04 PM [facility] Hemoglobin by COOX 9.6(L) 12.0 - 17.6 g/dL 10/09/2024 5:04 PM [facility] Comment:A^Absorbance Error O2 Saturation Venous 57(L) >=70 % 09/18 5:04 PM CDT [facility] Comment:A^Absorbance Error FI O2 Mixed Venous 21.0 % 2024 5:04 PM CDT [facility] Blood BLOOD SPECIMEN / Unknown Venipuncture / Unknown 10/09/2024 4:39 PM CDT 10/09/2024 4:56 PM CDT Narrative [facility] - 10/09/2024 5:04 PM CDT Carboxyhemoglobin Normal Concentration: Non-smokers: 0-2%; Smokers: 0-9%; Toxic: >20% Anjali Avelar [facility] LAB - BLOOD GASES OR DERABLES Final Result [address] [address], [place] [phone] * PHOSPHORUS BLOOD (10/09/2024 4:39 PM CDT) Only the most recent of8 resultswithin the time period is included. Phosphorus 4.9 2.8 - 5.1 mg/dL 10/09/2024 5:29 PM CDT [facility] Blood BLOOD SPECIMEN / Unknown Venipuncture / Unknown 10/09/2024 4:39 PM CDT 10/09/2024 4:58 PM CDT Anjali Avelar MANAGER [facility] LAB - CHEMISTRY ORDE RABLES Final Result [address] [address], [place] [phone] * (ABNORMAL) GLUCOSE - POINT OF CARE (10/09/2024 4:26 PM CDT) Only the most recent of55 resultswithin the time period is included. Glucose WB/POC 115(H) 70 - 99 mg/dL 10/09/2024 4:30 PM CDT [facility] Specimen Type Arterial/C apillary 10/09/2024 4:30 PM [facility] Blood BLOOD SPECIMEN / Unknown 10/09/2024 4:26 PM CDT 10/09/2024 4:30 PM CDT us Provider Unknown LAB - POINT OF CARE ORDERABLES Final Result [facility] [address] [place] [address], [facility] [phone] * (ABNORMAL) URINALYSIS REFLEX MICROSCOPIC REFLEX CULTURE (10/07/2024 6:16 PM CDT) Color UA Yellow Yellow, Straw 10/07/2024 6:39 PM [facility] Clarity UA Ex. Turbid(A) Clear 10/07/2024 6:39 PM [facility] Glucose UA Normal Normal 10/07/2024 6:39 PM [facility] Bilirubin UA Negative Negative 10/07/2024 6:39 PM [facility] Ketone UA Negative Negative 10/07/2024 6:39 PM [facility] Specific Jeffrey UA 1.015 1.005 - 1.030 10/07/2024 6:39 PM [facility] Blood UA 3+(A) Negative 10/07/2024 6:39 PM [facility] pH UA 6.0 5.0 - 8.0 10/07/2024 6:39 PM [facility] Protein UA 2+(A) Negative 10/07/2024 6:39 PM [facility] Urobilinogen UA Normal Normal mg/dL 10/07/2024 6:39 PM [facility] Nitrite UA Negative Negative 10/07/2024 6:39 PM [facility] Leukocyte Esterase UA 500 MOLLY/uL(A) Negative 10/07/2024 6:39 PM [facility] RBC UA 51-100(A) 0 - 5 # /hpf 10/07/2024 6:39 PM [facility] WBC UA >100(A) 0 - 5 # /hpf 10/07/2024 6:39 PM [facility] Bacteria UA 2+(A) None Seen 10/07/2024 6:39 PM CDT [facility] Squamous Epithelial Cells None Seen 0 - [...] ORDERABLES Kenna l Result Performing Organization Address City/State/[facility] Co de Phone Number [facility] [address] [place] [address], [facility] [phone] * (ABNORMAL) CULTURE URINE (10/07/2024 6:16 PM CDT) Culture Urine 50,000-100,000 CFU/mL Klebsiella pneumoniae(A) MUSHTAQ 10/09/2024 5:54 AM CDT [facility] Urine URINE SPECIMEN OBTAINED VIA [facility]HE[facility] / Unknown Collection / Unknown 10/07/2024 6:16 PM CDT 10/07/2024 6:19 PM CDT [facility] MICROBIOLOGY - 10/09/2024 5:54 AM CDT [...] LAB - MICROBIOLOGY ORDERABLES Fi nal Result [facility] [address] [place] [address], [facility] [phone] * VAS Arterial Multilevel Le (10/05/2024 12:24 PM CDT) Anatomical Region Laterality Modality Intravascular Ul trasound 10/05/2024 11:3 4 AM CDT Narrative Procedure Note Elroy Holcomb MD - 10/05/2024 Guy Messina MD VASCULAR LAB ORDERABLES Edit ed Result - Final * (ABNORMAL) HEMOGLOBIN A1C (09/25/2024 5:06 AM CDT) Hemoglobin A1c 5.8(H) <=5.6 % 09/25/2024 8:19 AM CDT [facility] Estimated Average Glucose 120 mg/dL 09/25/2024 8:19 AM CDT [facility] Comment: HbA1c Interpretation: Normal : < 5.7% Pre-diabetes: 5.7-6.4% Diabetes: Equal to or greater than 6.5% Test results diagnostic of diabetes should be repeated for confirmation. Treatment target values recommended by ADA and other clinical organizations should be used to evaluate metabolic control in patients. Reference: [place] [employer] Association, Standards of Care in Diabetes [...] LAB - CHEMISTRY ORDERABLES F inal Result [address] [address], [facility] [phone] * (ABNORMAL) RENAL FUNCTION PANEL (09/24/2024 7:53 PM CDT) Only the most recent of3 resultswithin the time period is included. BUN 42(H) 7 - 26 mg/dL 09/24/2024 8:47 PM [facility] Creatinine 12.22(H) 0.71 - 1.16 mg/dL 09/24/2024 8:47 PM [facility] Sodium 136 136 - 145 mmol/L 09/24/2024 8:47 PM [facility] Potassium 3.9 3.5 - 4.5 mmol/L 09/24/2024 8:47 PM [facility] Chloride 97(L) 98 - 107 mmol/L 09/24/2024 8:47 PM [facility] CO2 24 22 - 29 mmol/L 09/24/2024 8:47 PM [facility] Glucose 93 70 - 99 mg/dL 09/24/2024 8:47 PM [facility] Albumin 1.8(L) 3.4 - 5.0 g/dL 09/24/2024 8:47 PM T [facility] Calcium 8.4 8.4 - 10.2 mg/dL 09/24/2024 8:47 PM [facility] Phosphorus 7.0(H) 2.8 - 5.1 mg/dL 09/24/2024 8:47 PM [facility] Anion Gap 15 6 - 16 09/24/2024 8:47 PM [facility] BUN/Creatinine Ratio 3(L) 7 - 23 09/24/2024 8:47 PM [facility] Osmolality Calculated 292 275 - 295 mOsm/kg 09/24/2024 8:47 PM [facility] eGFR by CKD-EPI 4(L) >=90 mL/min/1.7 3 m2 09/24/2024 8:47 PM [facility] Comment:Estimated Glomerular Filtration Rate (eGFR) calculated using the CKD-EPI Creatinine Equation (2020), per the National Kidney Foundation and [place] [employer] Nephrology recommendations. Blood BLOOD SPECIMEN / Unknown Lab Venipuncture / Unknown 09/24/2024 7:53 PM CDT 09/24/2024 8:15 PM CDT us Guy Messina MD LAB - CHEMISTRY ORDERABLES F inal Result [address] [address], [place] [phone] * TSH REFLEX FREE T4 (09/24/2024 12:02 PM CDT) TSH 1.567 0.350 - 4.940 uIU/mL 09/24/2024 12:57 PM CDT [facility] Blood BLOOD SPECIMEN / Unknown 09/24/2024 12:02 PM CDT 09/24/2024 12:18 PM CDT us Alexis Rodrigez III, MD LAB - CHEMISTRY ORDERAB LES Final Result [address] [address], [place] [phone] * (ABNORMAL) VITAMIN B1 (09/24/2024 12:02 PM CDT) Pathologist [facility] Vitamin B1 Whole Blood 205(H) 70 - 180 nmol/L 09/27/2024 7:16 PM CDT [facility] ([facility]) Comment: INTERPRETIVE INFORMATION: Vitamin B1, Whole Blood This assay measures the concentration of thiamine diphosphate (TDP), the primary active form of vitamin B1. Approximately 90 percent of vitamin B1 present in whole blood is TDP. Thiamine and thiamine monophosphate, which comprise the remaining 10 percent, are not measured. This test was developed and its performance characteristics determined by [employer]. It has not been cleared or approved by the [place] Food and Drug Administration. This test was performed in a CLIA certified laboratory and is intended for clinical purposes. Performed By: [facility] [employer] [address] [place] [address] Learning Support Resource Room Teacher: Mk Egan MD, PhD CLIA Number: [id number] Blood BLOOD SPECIMEN / Unknown 09/24/2024 12:02 PM CDT 09/24/2024 12:11 PM CDT Alexis Rodrigez III, MD LAB - CHEMISTRY ORDERAB LES Final Result Performing Organization Address City/[facility]/ZIP Co de Phone Number [facility]) [address] [place] [id number] [place] [address] * (ABNORMAL) VITAMIN B12 (09/24/2024 12:02 PM CDT) Pathologist [facility] Vitamin B12 1,151(H) 213 - 816 pg/mL 09/24/2024 12:57 PM CDT [facility] Blood BLOOD SPECIMEN / Unknown 09/24/2024 12:02 PM CDT 09/24/2024 12:18 PM CDT Alexis Rodrigez III, MD LAB - CHEMISTRY ORDERAB LES Final Result [address] [address], [facility] [phone] * (ABNORMAL) TROPONIN-I HIGH SENSITIVE (09/24/2024 5:08 AM CDT) Troponin I High Sensitive 83(H) <=35 ng/L 09/24/2024 6:10 AM CDT [facility] Blood BLOOD SPECIMEN / Unknown Lab Venipuncture / Unknown 09/24/2024 5:08 AM CDT 09/24/2024 5:28 AM CDT us Jennifer Winn MD LAB - CHEMISTRY ORDERABLES F inal Result [facility] [address] [place] [address], [facility] [phone] * CT Lumbar Spine Wo Contrast (09/23/2024 [...] dictated by Branden Jha MD (vice president lending) 09/23/2024 5:45 PM. > Dictated by Special Population Paraprofessional I, Jana Clark MD have personally reviewed and interpreted this examination/study. > Interpreting Provider: Jana Clark MD on 09/23/2024 6:29 PM Narrative 09/23/2024 6:29 PM CDT PROCEDURE: CT HEAD WO CONTRAST, CT LUMBAR SPINE WO CONTRAST, CT THORACIC SPINE WO CONTRAST, CT CERVICAL SPINE WO CONTRAST, DATE/TIME OF EXAM: 09/23/2024 5:32 PM, LOCATION [facility] INDICATION: W19.XXXA: Fall, initial encounter R41.82: Altered mental status, unspecified altered mental status type ADDITIONAL CLINICAL INFORMATION: Ordering Provider Reason For Exam: r/o bleed, fx (accession [id number]), r/o fx (accession [id number]), r/o fx (accession [id number]), r/o fx (accession [id number]) Technologist Note: None. Additional: 69 year old [...] DATE/TIME OF EXAM: 09/23/2024 5:32 PM, LOCATION [facility] INDICATION: W19.XXXA: Fall, initial encounter R41.82: Altered mental status, unspecified altered mental status type ADDITIONAL CLINICAL INFORMATION: Ordering Provider Reason For Exam: r/o bleed, fx (accession [id number]), r/o fx (accession [id number]), r/o fx (accession [id number]), r/o fx (accession [id number]) Technologist Note: None. Additional: 69 year old [...] dictated by Branden Jha MD (vice president lending) 09/23/2024 5:45 PM. > Dictated by Special Population Paraprofessional I, Jana Clark MD have personally reviewed [...] dictated by Branden Jha MD (vice president lending) 09/23/2024 5:45 PM. > Dictated by Special Population Paraprofessional I, Jana Clark MD have personally reviewed and interpreted this examination/study. > Interpreting Provider: Jana Clark MD on 09/23/2024 6:29 PM Narrative 09/23/2024 6:29 PM CDT PROCEDURE: CT HEAD WO CONTRAST, CT LUMBAR SPINE WO CONTRAST, CT THORACIC SPINE WO CONTRAST, CT CERVICAL SPINE WO CONTRAST, DATE/TIME OF EXAM: 09/23/2024 5:32 PM, LOCATION [facility] INDICATION: W19.XXXA: Fall, initial encounter R41.82: Altered mental status, unspecified altered mental status type ADDITIONAL CLINICAL INFORMATION: Ordering Provider Reason For Exam: r/o bleed, fx (accession [id number]), r/o fx (accession [id number]), r/o fx (accession [id number]), r/o fx (accession [id number]) Technologist Note: None. Additional: 69 year old [...] DATE/TIME OF EXAM: 09/23/2024 5:32 PM, LOCATION [facility] INDICATION: W19.XXXA: Fall, initial encounter R41.82: Altered mental status, unspecified altered mental status type ADDITIONAL CLINICAL INFORMATION: Ordering Provider Reason For Exam: r/o bleed, fx (accession [id number]), r/o fx (accession [id number]), r/o fx (accession [id number]), r/o fx (accession [id number]) Technologist Note: None. Additional: 69 year old [...] dictated by Branden Jha MD (vice president lending) 09/23/2024 5:45 PM. > Dictated by Special Population Paraprofessional Jana Leigh MD have personally reviewed and [...] dictated by Branden Jha MD (vice president lending) 09/23/2024 5:45 PM. > Dictated by Special Population Paraprofessional Jana Leigh MD have personally reviewed and interpreted this examination/study. > Interpreting Provider: Jana Clark MD on 09/23/2024 6:29 PM Narrative 09/23/2024 6:29 PM CDT PROCEDURE: CT HEAD WO CONTRAST, CT LUMBAR SPINE WO CONTRAST, CT THORACIC SPINE WO CONTRAST, CT CERVICAL SPINE WO CONTRAST, DATE/TIME OF EXAM: 09/23/2024 5:32 PM, LOCATION [facility] INDICATION: W19.XXXA: Fall, initial encounter R41.82: Altered mental status, unspecified altered mental status type ADDITIONAL CLINICAL INFORMATION: Ordering Provider Reason For Exam: r/o bleed, fx (accession [id number]), r/o fx (accession [id number]), r/o fx (accession [id number]), r/o fx (accession [id number]) Technologist Note: None. Additional: 69 year old [...] DATE/TIME OF EXAM: 09/23/2024 5:32 PM, LOCATION [facility] INDICATION: W19.XXXA: Fall, initial encounter R41.82: Altered mental status, unspecified altered mental status type ADDITIONAL CLINICAL INFORMATION: Ordering Provider Reason For Exam: r/o bleed, fx (accession [id number]), r/o fx (accession [id number]), r/o fx (accession [id number]), r/o fx (accession [id number]) Technologist Note: None. Additional: 69 year old [...] dictated by Branden Jha MD (vice president lending) 09/23/2024 5:45 PM. > Dictated by Special Population Paraprofessional I, Jana Clark MD have personally reviewed [...] dictated by Branden Jha MD, (vice president lending). > Dictated by Special Population Paraprofessional I, Nicole Bernabe MD have personally reviewed and interpreted this examination/study. > Interpreting Provider: Nicole Bernabe MD on 09/24/2024 9:17 AM Narrative 09/24/2024 9:17 AM CDT PROCEDURE: XR FOOT LEFT 3VW OR MORE, DATE/TIME OF EXAM: 09/23/2024 5:34 PM, LOCATION [facility] INDICATION: W19.XXXA: Fall, initial encounter ADDITIONAL [...] MORE, DATE/TIME OF EXAM: 09/23/2024 5:34PM, LOCATION [facility] INDICATION: W19.XXXA: Fall, initial encounter ADDITIONAL [...] dictated by Branden Jha MD, (vice president lending). > Dictated by Special Population Paraprofessional I, Nicole Bernabe MD have personally reviewed [...] ORDERABLES Kenna l Result Performing Organization Address City/[facility]/ZIP Co de Phone Number [address] [address], [facility] [phone] * (ABNORMAL) ERYTHROCYTE SEDIMENTATION RATE (09/23/2024 4:52 PM CDT) Only the most recent of2 resultswithin the time period is included. Erythrocyte Sedimentation Rate Westergren 116(H) 0 - 20 MM/HR 09/23/2024 5:21 PM CDT [facility] Blood BLOOD SPECIMEN / Unknown Venipuncture / Unknown 09/23/2024 4:52 PM CDT 09/23/2024 5:05 PM CDT Moon Lewis PA-C LAB - HEMATOLOGY ORDERABLES Fin al Result [address] [address], [facility] [phone] * (ABNORMAL) DIFFERENTIAL MANUAL (09/23/2024 4:52 PM CDT) Only the most recent of3 resultswithin the time period is included. Neutrophil % 78(H) 41 - 74 % 09/23/2024 5:33 PM CDT [facility] Lymphocyte % 10(L) 17 - 47 % 09/23/2024 5:33 PM CDT [facility] Monocyte % 10 3 - 11 % 09/23/2024 5:33 PM T [facility] Eosinophil % 1 0 - 7 % 09/23/2024 5:33 PM CDT [facility] Metamyelocyte % 1(H) 0% % 5:33 PM T [facility] Neutrophil Absolute 8.66(H) 1.60 - 7.50 x10E9/L 09/23/2024 5:33 PM CDT [facility] Lymphocyte Absolute 1.11 1.00 - 4.40 x10E9/L 09/23/2024 5:33 PM T [facility] Monocyte Absolute 1.11(H) 0.15 - 1.00 x10E9/L 09/23/2024 5:33 PM [facility] Eosinophil Absolute 0.11 0.00 - 0.60 x10E9/L 09/23/2024 5:33 PM [facility] RBC Morphology REVIEWED 09/23/2024 5:33 PM T [facility] Microcytosis MODERATE(A) (none) 09/23/2024 5:33 PM [facility] Blood BLOOD SPECIMEN / Unknown Venipuncture / Unknown 09/23/2024 4:52 PM CDT 09/23/2024 5:05 PM CDT us Moon Lewis PA-C LAB - HEMATOLOGY ORDERABLES Fin al Result [facility] [address] [place] [address], [facility] [phone] * (ABNORMAL) CBC W/O DIFFERENTIAL (09/16/2024 1:01 AM CDT) Only the most recent of10 resultswithin the time period is included. WBC 9.3 4.0 - 10.7 x10E9/L 09/16/2024 1:43 AM [facility] RBC Count 3.37(L) 4.30 - 5.80 x10E12/L 09/16/2024 1:43 AM [facility] Hemoglobin 9.5(L) 13.3 - 17.5 g/dL 09/16/2024 1:43 AM [facility] Hematocrit 28.3(L) 38.7 - 51.1 % 09/16/2024 1:43 AM [facility] MCV 84.0 80.0 - 98.0 fL 09/16/2024 1:43 AM [facility] MCH 28.2 26.7 - 33.6 pg 09/16/2024 1:43 AM [facility] MCHC 33.6 31.7 - 36.3 g/dL 09/16/2024 1:43 AM [facility] RDW-CV 15.7(H) 11.3 - 14.8 % 09/16/2024 1:43 AM [facility] Platelet Count 205 150 - 420 x10E9/L 09/16/2024 1:43 AM [facility] MPV 10.3 7.8 - 11.4 fL 09/16/2024 1:43 AM [facility] Blood BLOOD SPECIMEN / Unknown Lab Venipuncture / Unknown 09/16/2024 1:01 AM CDT 09/16/2024 1:40 AM CDT us Alexis Rodrigez III, MD LAB - HEMATOLOGY ORDERA BLES Final Result [facility] [address] [place] [address], [facility] [phone] * VANCOMYCIN LEVEL RANDOM (09/15/2024 4:10 PM CDT) Only the most recent of3 resultswithin the time period is included. Pathologist [facility] Vancomycin Random 31.2 Therapeutic Ranges not established for random specimens ug/mL 09/15/2024 6:00 PM CDT [facility] Blood BLOOD SPECIMEN / Unknown Lab Venipuncture / Unknown 09/15/2024 4:10 PM CDT 09/15/2024 4:51 PM CDT Narrative [facility] - 09/15/2024 6:00 PM CDT See institution protocol. us Aureliano Pierce MD LAB - CHEMISTRY ORDERAB LES Final Result [address] [address], [place] [phone] * LACTIC ACID BLOOD (09/14/2024 3:32 PM CDT) Only the most recent of4 resultswithin the time period is included. [facility] Lactic Acid-Stat 2.0 <=2.0 mmol/L 09/14/2024 4:17 PM CDT [facility] Blood BLOOD SPECIMEN / Unknown Lab Venipuncture / Unknown 09/14/2024 3:32 PM CDT 09/14/2024 3:51 PM CDT us Alexis Rodrigez III, MD LAB - CHEMISTRY ORDERAB LES Final Result Performing Organization Address City/[facility]/ZIP Co de Phone Number [address] [address], [place] [phone] * (ABNORMAL) HGB HCT PANEL (09/14/2024 1:24 PM CDT) Only the most recent of2 resultswithin the time period is included. [facility] Hemoglobin 8.7(L) 13.3 - 17.5 g/dL 09/14/2024 1:41 PM CDT [facility] Hematocrit 25.6(L) 38.7 - 51.1 % 09/14/2024 1:41 PM CDT [facility] Blood BLOOD SPECIMEN / Unknown Venipuncture / Unknown 09/14/2024 1:24 PM CDT 09/14/2024 1:30 PM CDT us Alexis Rodrigez III, MD LAB - HEMATOLOGY ORDERA BLES Final Result [facility] [address] [place] [address], [facility] [phone] * PATHOLOGY TISSUE (09/14/2024 11:45 AM CDT) Case Report Surgical Pathology Report Case: [id number] Authorizing Provider: Elroy Holcomb MD Collected: 09/14/2024 11:45 AM Ordering Location: [facility] Received: 09/14/2024 12:47 PM Pathologist: Charmaine Myrick MD Specimen: Toe, Left, Left Great Toe 09/16/2024 11:40 AM CDT [facility] Final Diagnosis Toe, left great, amputation (A): - Skin ulceration and necrosis - Acute osteomyelitis - Bone margin negative for acute inflammation - Skin and soft tissue margin appears viable 09/16/2024 11:40 AM CDT [facility] at 1140 CDT Microscopic Description and Comment Microscopic examination substantiates the diagnosis. 09/16/2024 11:40 AM CDT [facility] Clinical History The patient is a 69-year-old man with first toe dry gangrene and history of PAD. 09/16/2024 11:40 AM CDT [facility] Gross Description The requisition [...] hemorrhage. There are no additional gross lesions. Cement Tile Maker sections are submitted as follows: A1-skin and soft tissue to resection margin, medial and dorsal surfaces A2-bony resection margin, decalcified A3-partial proximal cross-section with surrounding mummification, decalcified IKD 09/16/2024 11:40 AM CDT [facility] Pathologist Location at [facility] 09/16/2024 11:40 AM CDT [facility] Disclaimer The performance characteristics of all immunohistochemical and indirect immunofluorescence stains (if any) cited in this report were determined by the [facility]. Some of these tests were developed [...] attending (teaching) pathologist. 09/16/2024 11:40 AM CDT [facility] Embedded Images 09/16/2024 11:40 AM CDT [facility] Amputation, Traumatic (Gross Only) (Toe, Left) 09/14/2024 11:45 AM CDT 09/14/2024 12:47 PM CDT Comment:Pre-op diagnosis: Toe gangrene (HCC) [I96] us Elroy Holcomb MD LAB - PATHOLOGY/CYTOLOGY O RDERABLES Final Result Performing Organization Address City/State/[facility] Co de Phone Number [facility] [address] [phone] * Peripheral Nerve Block (09/14/2024 10:38 AM [...] fungus isolated MUSHTAQ 10/11/2024 8:05 AM CDT [facility] Fungus Stain No yeast or hyphae seen 10/11/2024 8:05 AM CDT [facility] Microbiology PERITONEAL DIALYSATE SPECIMEN / Unknown Collection / Unknown 09/13/2024 8:08 PM CDT 09/13/2024 8:10 PM CDT us Alexis Rodrigez III, MD LAB - MICROBIOLOGY PK ZENG Final Result [facility] [address] [place] [address], [facility] [phone] * DIFFERENTIAL MANUAL FLUID (09/13/2024 8:08 PM [...] PM CDT 09/13/2024 8:10 PM CDT Narrative [facility] - 09/13/2024 9:03 PM CDT No reference ranges established for body fluid differential cell counts. The test results must be integrated into the clinical context for interpretation. us Alexis Rodrigez III, MD LAB - BODY FLUID ORDERA BLES Final Result Performing Organization Address City/State/[facility] Co de Phone Number [address] [address], [facility] [phone] * CULTURE FLUID+GRAM STAIN (09/13/2024 8:08 PM CDT) Culture No growth [facility]HTAQ 09/17/2024 12:38 AM CDT [facility] Gram Stain Light Polymorphonuclear cells 09/17/2024 12:38 AM CDT [facility] Gram Stain No organisms seen 025 12:38 AM CDT [facility] Other PERITONEAL DIALYSATE SPECIMEN / Unknown Collection / Unknown 09/13/2024 8:08 PM CDT 09/13/2024 8:10 PM CDT us Alexis Rodrigez III, MD LAB - MICROBIOLOGY PK ZENG Final Result Performing Organization Address City/[facility]/ZIP Co de Phone Number [facility] [address] [place] [address], [facility] [phone] * CULTURE ANAEROBE (09/13/2024 8:08 PM CDT) Culture No anaerobic organisms isolated [facility] 09/19/2024 8:26 AM CDT [facility] Microbiology PERITONEAL DIALYSATE SPECIMEN / Unknown Collection / Unknown 09/13/2024 8:08 PM CDT 09/13/2024 8:11 PM CDT us Alexis Rodrigez III, MD LAB - MICROBIOLOGY PK ZENG Final Result Performing Organization Address [facility] Co de Phone Number [facility] [address] [place] [address], [facility] [phone] * CELL COUNT W DIFFERENTIAL FLUID (09/13/2024 8:08 PM CDT) Fluid Source Peritoneal 09/13/2024 9:03 PM CDT [facility] Fluid Appearance CLEAR 09/13/2024 9:03 PM CDT [facility] Fluid Color YELLOW 09/13/2024 9:03 PM CDT [facility] Total Nucleated Cells Fluid 279 Reference Range Not Established x10E6/L 09/13/2024 9:03 PM CDT [facility] RBC Count Fluid <2,000 Reference Range Not Established x10E6/L 09/13/2024 9:03 PM CDT [facility] Fluid PERITONEAL FLUID / Unknown Collection / Unknown 09/13/2024 8:08 PM CDT 09/13/2024 8:10 PM CDT Narrative [facility] - 09/13/2024 9:03 PM CDT No reference ranges established for body fluid cell counts. Any reference ranges provided are derived from published literature. The test results must be integrated into the clinical context for interpretation. us Alexis Rodrigez III, MD LAB - BODY FLUID ORDERA BLES Final Result Performing Organization Address City/[facility]/ZIP Co de Phone Number [facility] [address] [address], [facility] [phone] * VAS Bilateral Venous Duplex Le (09/13/2024 [...] LAB - MICROBIOLOGY ORDERABLE S Final Result [facility] [address] [place] [address], [facility] [phone] * TRANSFUSE RED BLOOD CELL LEUKOREDUCED UNIT(S) [...] by Sera Chowdhury Dr, MD (vice president lending). I, Terry Ramos MD have personally reviewed and interpreted this examination/study. > Interpreting Provider: Terry Ramos MD on 09/13/2024 9:42 AM Narrative 09/13/2024 9:42 AM CDT PROCEDURE: CT ANGIO AORTA FOR DISSECTION, DATE/TIME OF EXAM: 09/13/2024 12:28 AM, LOCATION [facility] INDICATION: R10.9: Abdominal pain, unspecified abdominal [...] DATE/TIME OF EXAM: 09/13/2024 12:28 AM, LOCATION [facility] INDICATION: R10.9: Abdominal pain, unspecified abdominal [...] by Sera Chowdhury Dr, MD (vice president lending). I, Terry Ramos MD have personally reviewed and interpreted this examination/study. > Interpreting Provider: Terry Ramos MD on 09/13/2024 9:42 AM Yuriy Lopez MD CT ORDERABLES Final Result * PREPARE (CROSSMATCH) RBC UNIT(S), 1 Units (09/12/2024 11:30 PM CDT) Unit Description AS1 LR PRBC [facility] Unit ABO O [facility] Unit Rh NEG [facility] Product Number R43 [facility] Unit Donor # [id number] [facility] Unit Status transfused [facility] Product Code I3024C55 [facility] Blood Type Barcode 9500 [facility] Expiration Date [id number] S [facility] LAB Blood Bank BLOOD SPECIMEN / Unknown 09/12/2024 11:30 PM CDT 09/12/2024 11:37 PM CDT Yuriy Lopez MD LAB - BLOOD BANK ORDERABLES Final Result Performing Organization Address City/[facility]/ZIP Co de Phone Number [facility] [address] [place] [address], [place] [phone] * TYPE + SCREEN PANEL (09/12/2024 11:30 PM CDT) Antibody Screen NEG 12:16 AM CDT [facility] ABO Rh O NEG 09/13/2024 12:16 AM CDT [facility] Blood Bank BLOOD SPECIMEN / Unknown Venipuncture / Unknown 09/12/2024 11:30 PM CDT 09/12/2024 11:37 PM CDT Yuriy Lopez MD LAB - BLOOD BANK ORDERABLES Final Result Performing Organization Address [facility]/ZIP Co de Phone Number [facility] [address] [place] [address], [place] [phone] * CULTURE BLOOD (09/12/2024 10:00 PM CDT) Only the most recent of4 resultswithin the time period is included. Culture No growth day 5 [facility] 09/18/2024 1:30 AM CDT [facility] Blood PERIPHERAL BLOOD / Unknown Venipuncture / Unknown 09/12/2024 10:00 PM CDT 09/12/2024 10:21 PM CDT Yuriy Lopez MD LAB - MICROBIOLOGY ORDERABLE S Final Result [facility] [address] [place] [address], [facility] [phone] * (ABNORMAL) BASIC METABOLIC PANEL (CALCIUM TOTAL) (09/08/2024 10:45 AM CDT) Only the most recent of6 resultswithin the time period is included. BUN 46(H) 7 - 26 mg/dL 09/08/2024 11:55 AM [facility] Creatinine 10.97(H) 0.71 - 1.16 mg/dL 09/08/2024 11:55 AM [facility] Sodium 142 136 - 145 mmol/L 09/08/2024 11:55 AM [facility] Potassium 4.4 3.5 - 4.5 mmol/L 09/08/2024 11:55 AM [facility] Chloride 104 98 - 107 mmol/L 09/08/2024 11:55 AM [facility] CO2 25 22 - 29 mmol/L 09/08/2024 11:55 AM [facility] Glucose 112(H) 70 - 99 mg/dL 09/08/2024 11:55 AM [facility] Calcium 8.9 8.4 - 10.2 mg/dL 09/08/2024 11:55 AM [facility] Anion Gap 13 6 - 16 09/08/2024 11:55 AM [facility] BUN/Creatinine Ratio 4(L) 7 - 23 09/08/2024 11:55 AM [facility] Osmolality Calculated 307(H) 275 - 295 mOsm/kg 09/08/2024 11:55 AM [facility] eGFR by CKD-EPI 5(L) >=90 mL/min/1.7 3 m2 09/08/2024 11:55 AM [facility] Comment:Estimated Glomerular Filtration Rate (eGFR) calculated using the CKD-EPI Creatinine Equation (2020), per the National Kidney Foundation and [place] Society of Nephrology recommendations. Blood BLOOD SPECIMEN / Unknown Lab Venipuncture / Unknown 09/08/2024 10:45 AM CDT 09/08/2024 11:26 AM T us Mellissa Freitas PA-C LAB - CHEMISTRY ORDERABLES Final Result [facility] [address] [place] [address], [facility] [phone] * VAS Bilateral Venous Mapping (09/07/2024 2:24 [...] thickening. Report dictated by Freddie Durham MD, (Special Population Paraprofessional). I, Junior Hurley MD have personally reviewed [...] thickening. Report dictated by Freddie Durham MD, (Special Population Paraprofessional). I, Junior Hurley MD have personally reviewed and interpreted this examination/study. > Interpreting Provider: Junior Hurley MD on 56:26 AM us Charmaine Khalil MD CT ORDERABLES Final Result * (ABNORMAL) POTASSIUM WHOLE BLD (09/01/2024 3:54 PM CDT) Potassium Whole Blood 3.1(L) 3.5 - 5.5 mmol/L 09/01/2024 4:05 PM CDT [facility] Blood WHOLE BLOOD SPECIMEN / Unknown Venipuncture / Unknown 09/01/2024 3:54 PM CDT 09/01/2024 3:57 PM CDT Jaqueline Crews MANAGER COLLECTION-LIFT MECHANIC LAB - CHEMISTRY ORDERABL ES Final Result [facility] [address] [place] [address], [facility] [phone] * CCL STAGED PERC CORONARY INTERVENTION, CCL [...] 6Fr 1.25Mm Diamondback catheter and using a [facility] Diamondback 360 Viperwire Adv wire. 2 [...] continuing DAPT Cardiology clinic f/u Jaqueline Crews MANAGER COLLECTION-LIFT MECHANIC CV CARDIAC CATH CUPID [facility] Final Result * (ABNORMAL) IRON + TRANSFERRIN PANEL (08/19/2024 1:41 AM CDT) Iron 40(L) 50 - 175 ug/dL 08/19/2024 2:17 AM CDT [facility] Transferrin 116(L) 174 - 382 mg/dL 08/19/2024 2:17 AM CDT [facility] Transferrin Saturation % 28 16 - 50 % 08/19/2024 2:17 AM CDT [facility] TIBC Calculated 145(L) 240 - 450 ug/dL 08/19/2024 2:17 AM CDT [facility] Blood BLOOD SPECIMEN / Unknown Lab Venipuncture / Unknown 08/19/2024 1:41 AM CDT 08/19/2024 2:01 AM CDT Result [facility] Hannah Goodman MD LAB - CHEMISTRY ORDERABLES F inal Result [address] [address], [facility] [phone] * (ABNORMAL) FERRITIN (08/19/2024 1:41 AM CDT) Ferritin 560(H) 22 - 275 ng/mL 08/19/2024 2:35 AM CDT [facility] Blood BLOOD SPECIMEN / Unknown Lab Venipuncture / Unknown 08/19/2024 1:41 AM CDT 08/19/2024 2:01 AM CDT us Hannah Goodman MD LAB - CHEMISTRY ORDERABLES F inal Result Performing Organization Address [facility] Co de Phone Number [facility] [address] [place] [address], [place] [phone] * VITAMIN D 25-HYDROXY (08/19/2024 1:23 AM [...] ORDERABLES F inal Result Performing Organization Address [facility] Co de Phone Number [address] [address], [facility] [phone] * CCL PERIPHERAL ANGIOGRAM (08/18/2024 2:33 PM CDT) Anatomical Region Laterality Modality X-Ray Angiograph y Narrative 08/19/2024 2:24 PM CDT Left leg angiogram showed left AT severe diffuse disease with multiple subtotal occlusion and left PT severe diffuse disease with FANCY PACKER of distal PT without clear reconstitution. Successful [...] 0.018 CXI microcatheter with multiple wires(Command 18/command 14/Cement Loader 200) to get to great toe branch of dorsalis pedis using pilot boat deckhand [address]. - the AT-DP lesion was dilated with balloons mentioned in figure. - We turn our attention to PT. We crossed the PT FANCY PACKER with 0.018 CXI microcatheter with multiple wires (command 18, command 14, Cement Loader 200) and able to go to lateral [...] using angiography. Left Posterior Tibial: Ost L BLANCHARD GRINDER OPERATOR to Dist L BLANCHARD GRINDER OPERATOR lesion is 100% stenosed. Stenosis was measured using angiography. Intervention Ost L ROSETTA to Dist L ROSETTA lesion: Angioplasty: Angioplasty independent of stent deployment was performed using a standard balloon. The balloon used was WireOver Emrg Mr Wh 1.5Mm 144Cm 15Mm 2. Angioplasty: Angioplasty prior to stent deployment was performed using a standard balloon. The balloon used was WebNotesn Dil Nanocross Elt 2-1.5Mm 150. Angioplasty: Angioplasty [...] 10% residual stenosis post intervention. Ost L BLANCHARD GRINDER OPERATOR to Dist L BLANCHARD GRINDER OPERATOR lesion: Angioplasty: Angioplasty independent of stent deployment [...] of Plavix. -recommend close follow up with picker packer and follow up with me in clinic with JOSIANE/TBI. Hannah Goodman MD CV INVASIVE VASCULAR AND IR CUPID PROC Final Result * ACT LR - POCT ([facility]) (08/18/2024 2:08 PM CDT) Only the most recent of4 resultswithin the time period is included. ACT LR 231 See result comments sec 08/19/2024 9:02 AM CDT [facility] Blood BLOOD SPECIMEN / Unknown 08/18/2024 2:08 PM CDT 08/19/2024 9:02 AM CDT Narrative [facility] - 08/19/2024 9:02 AM CDT ACT-LR Therapeutics ranges are: Cardiac quality lab technician = 200-300 seconds Sheath pull [...] MD LAB - COAGULATION ORDERABLES Final Result [facility] [address] [place] [address], [facility] [phone] * MRI ABDOMEN WWO CONTRAST (08/04/2024 12:24 [...] containing many hemorrhagic cysts. Report dictated by Alna Cole MD (vice president lending). ITerry MD have personally reviewed and interpreted [...] of the left kidney, not significantly changed, [id number] image 49, series 16 image 41. A [...] dictated by Alan Cole MD (vice president lending). Terry Leigh MD have personally reviewed and [...] MD LAB - CHEMISTRY ORDERABLES nal Result [facility] [address] [place] [address], [facility] [phone] from Last 3 Months or Most Recently Relevant to Health Maintenance Insurance AETNA MEDICARE ADV [facility] MEDICARE ADV * Guarantor: GRACE INTERIANO Account Type Relation to Patient Date of Phone Billing Address Personal/Family [address] [place] [address] * Guarantor: GRACE INTERIANO Account Type Relation to Patient Date of Phone Billing Address Personal/Family [address] [place] [phone] Advance Directives * Full Code (Latest Code [...] 3:16 PM 08/19/2024 4:36 PM Care Teams Braiding Operator Relationship Specialty Start Date End Date Jeff Strickland MD [address] [place] [address] PCP - General 03/05/18 [place] [id number] [address] Orthopedic Surgery 03/28/17
--- OUTSIDE RECORDS SUMMARY | 2024-11-04 13:18 | XMS_ITS | Clinical Summary ---
Author Organization [facility] Address [address] [place] [address] Phone Care Team Providers Care Senior Ios Developer Name Role Phone Jeff Strickland MD Primary Care Provider [phone] Allergies No known active allergies Medications pantoprazole [...] tablet Take 112 mcg by mouth daily thread drawer. Active aspirin (ANGELLA) 325 mg tablet Take 325 mg by mouth daily. Active Vit C-Vit M-Tonoxz-AmAb-L utein (PRESERVISION) 226 mg-200 unit -5 mg-0.8 [...] Comments Blood Pressure 167/77 02/04/2019 9:16 AM PLACEMENT DIRECTOR Pulse 64 02/04/2019 9:16 AM PLACEMENT DIRECTOR Temperature 36.5 C (97.7 F) 02/04/2019 9:16 AM PLACEMENT DIRECTOR Respiratory Rate 16 02/04/2019 9:16 AM PLACEMENT DIRECTOR Oxygen Saturation 97% 02/04/2019 9:16 AM PLACEMENT DIRECTOR Inhaled Oxygen Concentration - - Weight 113.4 kg (250 lb) 02/04/2019 9:16 AM PLACEMENT DIRECTOR Height 175.3 cm (5' 9) 02/04/2019 9:16 AM PLACEMENT DIRECTOR Body Mass Index 36.92 02/04/2019 9:16 AM PLACEMENT DIRECTOR Plan of Treatment Health Maintenance Due Date [...] ACCESS/TRUE BLUE PPO AETNA MEDICARE SUPPLEMENT PPO [facility] BLUE ACCESS/TRUE BLUE PPO Care Teams Senior Ios Developer Relationship Specialty Start Date End Date Jeff Strickland MD [address] [facility] [address] [place] [address] PCP - General Family Practice 01/01/19
--- OUTSIDE RECORDS SUMMARY | 2024-11-04 13:18 | XMS_ITS | Encounter Summary ---
Author Organization [facility] Address [address] [place] [address] Care Team Providers Care Geothermal Powerplant Mechanic Helper Name Role Phone Jeff Strickland MD Primary Care Provider Chan Nicholas MD Unavailable [phone] Alan Mccall MD Unavailable [phone] Pepito Haro MD PhD Unavailable Solange Guido MD Unavailable [phone] Encounter Details Date Type Department Care Team (Late st Contact Info) Description 07/28/2024 Orders Only [facility] [address] [place] [address] Scanning, Provider Social History Tobacco Use Types Packs/Day Years Used Date Smoking Tobacco: Never Smokeless Tobacco: Never Alcohol Use Standard Drinks/Week Comments Yes 0 (1 standard drink = 0.6 oz pur e alcohol) rarely [facility] Utilities Answer Date Recorded In the past 12 months has [employer] electric, gas, oil, or water company threatened [...] often do you attend chur ch or nondenominational services? 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 Gender Identity Not on file Sexual [...] on filedocumented in this encounter Care Teams Geothermal Powerplant Mechanic Helper Relationship Specialty Start Date End Date Jeff Strickland MD [facility] [address] [place] [id number] PCP - General Family Medicine 04/02/18 Chan Nicholas MD [facility] [address] [address] Consulting Physician Gastroenterology 11/24/18 Alan Mccall MD [facility] [address] [address] Referring Physician Nephrology 11/24/18 Pepito Haro MD PhD [address] [place] [address] Consulting Physician Neurosurgery 12/03/22 Solange Guido MD [address] [facility] [address] [place] [address] Referring Physician Cardiovascular Disease 07/23/23 documented as of this encounter
--- OUTSIDE RECORDS SUMMARY | 2024-11-04 13:18 | XMS_ITS ---
Author Organization [facility] Address [address] [place] [address] Care Team Providers Care Brick Washer Name Role Phone Jeff Strickland MD Primary Care Provider Chan Nicholas MD Unavailable Alan Mccall MD Unavailable Pepito Haro MD PhD Unavailable Solange Guido MD Unavailable [phone] Dialysis Access Sites Type Status Location Placement [...] both eyes EGFR Routine 04/13/2024 5:06 AM ON SITE SOIL EVALUATOR HEMOGLOBIN A1C STAT 04/10/2024 11:41 PM ON SITE SOIL EVALUATOR LIPID PANEL STAT 04/10/2024 11:41 PM ON SITE SOIL EVALUATOR from Last 3 Months or Most Recently [...] 300 + = 14 units Active FA-vit Txpbb-I-hhwg-vitamin D3 (Dialyvite 800-Ultra D) 0.8-2,000 mg-unit tablet [...] total) by mouth 06/04/19 25 Active vitamins A,C,T-gqpt-pzszxz (PreserVision AREDS) 4,296 mcg-226 mg-90 mg capsule [...] damage Assessment & Plan (03/09/2024 6:25 PM ON SITE SOIL EVALUATOR): Vision OD trends mild improvement, though still [...] discussed that genetic results would not exchange floor manager. Given we have exhausted available treatment [...] 03/26/2021 Assessment & Plan (03/26/2021 1:17 PM ON SITE SOIL EVALUATOR): Enlarged mild sella turcica on a routine [...] units Assessment & Plan (03/26/2021 1:17 PM ON SITE SOIL EVALUATOR): Chronic, uncontrolled, improving A1c today 7.7 % [...] WNL Assessment & Plan (03/26/2021 1:16 PM ON SITE SOIL EVALUATOR): Pt currently on Levothyroxine 112 mcg oral [...] 11/18/2018 Assessment & Plan (01/21/2019 2:02 PM ON SITE SOIL EVALUATOR): Symptomatic. Will request for esophageal manometry. Continue [...] well Assessment & Plan (03/26/2021 1:16 PM ON SITE SOIL EVALUATOR): On statin therapy Tolerating well Last lipid [...] nephrectomy. 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 LC: MARC Report ID: [id number] Reading Location: [id number] Procedure Note Dolores Wong MD - 10/12/2024 EXAM DESCRIPTION: MRI BRAIN WO CONTRAST REASON FOR STUDY: other symptoms and signs involving cognitive functionsand awareness Cognitive changes, confusion, worse over that last several weeks, noinjury or trauma but patient states he has had several surgeries recently TECHNIQUE: Multiplanar imaging includes non-contrasted T1, T2, FLAIR, and diffusion with ADC map sequences. Additional sequence(s) sensitive [employer] products. Images stored on PACS. COMPARISON: MRI [...] Selwyn Wong M.D. LC: MARC Report ID: [id number] Reading Location: [id number] us Provider Transcribed Order IMG MRI PROCEDURES [...] Result * (ABNORMAL) eGFR (04/13/2024 5:06 AM ON SITE SOIL EVALUATOR) eGFR 5(L) >=60 mL/min/1. 73 m2 Comment: [...] reviewed 2020. Blood 04/13/2024 5:0 6 AM ON SITE SOIL EVALUATOR 04/13/2024 5:31 AM ON SITE SOIL EVALUATOR us Saul Engle MD LAB BLOOD ORDERABLES Final Resul t [facility] Department of Laboratories [place], [place] [id number] * (ABNORMAL) Lipid panel (04/10/2024 11:41 PM ON SITE SOIL EVALUATOR) Cholesterol 145 30 - 199 mg/dL Comment: [...] on 2017. Triglycerides 453(H) <=149 mg/dL [facility] Comment: Interpretive Data Ages < or = [...] revised on 2017. HDL 22(L) >=40 mg/dL [facility] Comment: Interpretive Data Ages < or = [...] on 2017. LDL, calculated See Comment <=129 [facility] Comment: Unable to calculate LDL due to [...] on 2023. Non-HDL Cholesterol 123 mg/dL [facility] Comment: Interpretive Data Ages < or = [...] last revised on 2017. Chol/HDL ratio 7 [facility] Blood 04/10/2024 11:4 1 PM ON SITE SOIL EVALUATOR 04/10/2024 11:55 PM ON SITE SOIL EVALUATOR us Nicole Boo MD LAB BLOOD ORDERABLES Final Result [facility] Department [place] [address] from Last 3 Months or Most Recently Relevant to Health Maintenance
--- OUTSIDE RECORDS SUMMARY | 2024-11-04 13:18 | XMS_ITS | Patient Health Record ---
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 He denies tobacco, alcohol, or illicit drug abuse The patient is retired. 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 He denies tobacco, alcohol, or illicit drug abuse The patient is retired. 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 He denies tobacco, alcohol, or illicit drug abuse The patient is retired. 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 He denies tobacco, alcohol, or illicit drug abuse The patient is retired. 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 He denies tobacco, alcohol, or illicit drug abuse The patient is retired. 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 He denies tobacco, alcohol, or illicit drug abuse The patient is retired. 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 He denies tobacco, alcohol, or illicit drug abuse The patient is retired. 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 He denies tobacco, alcohol, or illicit drug abuse The patient is retired. 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 He denies tobacco, alcohol, or illicit drug abuse The patient is retired. 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 He denies tobacco, alcohol, or illicit drug abuse The patient is retired. 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 He denies tobacco, alcohol, or illicit drug abuse The patient is retired. 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 He denies tobacco, alcohol, or illicit drug abuse The patient is retired. 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 He denies tobacco, alcohol, or illicit drug abuse The patient is retired. 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) Active confirmed Localized, primary osteoarthritis of the shoulder region (031514331) Problem Pain in left hip (M25.552) Active confirmed Pain of left hi p joint (finding) (037505051860928) Problem Spondylosis without myelopathy or radiculopathy, lumbar region (M47.816) Active confirmed Lumbosacral spondylosis without myelopathy (81169619) Problem Other intervertebral disc degeneration, lumbar region (M51.36) Active confirmed Degeneration of lumbar intervertebral disc (25792829) Problem Radiculopathy, lumbar region (M54.16) Active confirmed Lumbar radiculopathy (913801739) Problem Radiculopathy, lumbosacral region (M54.17) Active confirmed Lumbosacral radiculopathy (8194213) Problem Osseous stenosis of neural canal of lumbar region (M99.33) Active confirmed Spinal stenosis of lumbar region (44730691) Problem group home (current) use of anticoagulants (Z79.01) Active confirmed Long-term curre nt use of anticoagulant (355399304) Problem Other intervertebral disc degeneration, lumbar region [...] Location Date Provider Diagnosis [facility] [address] [place] [phone] 01/12/2024 Sergio Stynowick Radiculopathy, lumba r region M54.16 ; Radiculopathy, lumbosacral region M54.17 ; Other chest pain R07.89 ; Other intervertebral disc degeneration, lumbar region M51.36 ; 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 ; Spondylosis without myelopathy or radiculopathy, lumbar region M47.816 and group home (current) use of anticoagulants Z79.01 [facility] [address] [place] [address] 01/19/2024 Sergio Stynowick Radiculopathy, lumba r region M54.16 ; Other intervertebral disc degeneration, lumbar region with discogenic back pain and lower extremity pain M51.362 and 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 [facility] [address] [place] [address] 02/03/2024 Sergio Stynowick Other chest pain R07.89 ; Pain in left knee M25.562 ; Radiculopathy, lumbar region M54.16 ; Other intervertebral disc degeneration, lumbar region M51.36 ; 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 ; Spondylosis without myelopathy or radiculopathy, lumbar region M47.816 and group home (current) use of anticoagulants Z79.01 [facility] [address] [place] [address] 03/03/2024 Sergio Stynowick Pain in left knee M25.562 ; Primary osteoarthritis, unspecified shoulder M19.019 ; Other chest pain R07.89 ; Radiculopathy, lumbar region M54.16 ; Other intervertebral disc degeneration, lumbar region M51.36 ; 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 ; Spondylosis without myelopathy or radiculopathy, lumbar region M47.816 ; exterminator helper (current) use of anticoagulants Z79.01 ; Pain in right shoulder M25.511 and Pain in left shoulder M25.512 [facility] [address] [place] [address] 03/08/2024 Sergio Stynowick Primary osteoarthritis, unspecified shoulder M19.019 [facility] [address] [place] [address] 03/31/2024 Sergio Schmitzick ASSESSMENTS Encounter Date Diagnosis [...] lumbar region (ICD-10 - M99.33) 01/12/2024 exterminator helper (current) use of anticoagulants (ICD-10 - Z79.01) The patient was instructed to discontinue aspirin for 6 days prior to the procedure. I made the patient aware that he will be at an increased risk for a thromboembolic event during this time and he is willing to accept this risk. The patient was instructed to notify his primary care physician and/or builder's labourer to obtain clearance prior to discontinuing this medication. 02/03/2024 group home (current) use of anticoagulants (ICD-10 - Z79.01) 03/03/2024 Spondylosis without myelopathy or radiculopathy, lumbar region (ICD-10 - M47.816) 03/03/2024 group home (current) use of anticoagulants (ICD-10 - [...] Coverage End Date A[employer]NA MEDICARE [address] [place] [address] [id number] GRACE INTERIANO Self - patient is the insured MEDICAL (GENERAL) HISTORY Medical History History ICD Code Hypertension Hypothyroidism Diabetes type 2 Gastroesophageal reflux disease (GERD) Renal cell cancer Chronic kidney disease stage 4 Sleep apnea CHF Surgical History Surgery Date(Month/Year) Right total knee arthroplasty 08/2015 Cholecystectomy Hernia repair 2019 Cardiac stent 07/2020
--- OUTSIDE RECORDS SUMMARY | 2024-11-04 13:18 | XMS_ITS | Encounter Summary ---
Author Organization [facility] Healthcare Address [address] [place] [address] Care Team Providers Care Electrician Master Name Role Phone Jeff Strickland MD Primary Care Provider Chan Nicholas MD Unavailable [phone] Alan Mccall MD Unavailable [phone] Pepito Haro MD PhD Unavailable [phone] Solange Guido MD Unavailable [phone] Encounter Details Date Type Department Care Team (Late st Contact Info) Description 07/26/2024 Orders Only [facility] Information Management [address] [place] [address] Scanning, Provider Social History Tobacco Use Types Packs/Day Years Used Date Smoking Tobacco: Never Smokeless Tobacco: Never Alcohol Use Standard Drinks/Week Comments Yes 0 (1 standard drink = 0.6 oz pur e alcohol) rarely [facility] Utilities Answer Date Recorded In the past 12 months has [employer] electric, gas, oil, or water company threatened [...] often do you attend chur ch or latter day services? 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 Gender Identity Not on file Sexual [...] filedocumented in this encounter Care Teams Electrician Master Relationship Specialty Start Date End Date Jeff Strickland MD [address] [place] [address] [address] [address] PCP - General Family Medicine 04/02/18 Chan Nicholas MD [facility] [address] [address] Consulting Physician Gastroenterology 11/24/18 Alan Mccall MD [address] [place] [address] [address] [address] Referring Physician Nephrology 11/24/18 Pepito Haro MD PhD [facility] [address] [place] [id number] Consulting Physician Neurosurgery 12/03/22 Solange Guido MD [address] [facility] [address] [place] [address] Referring Physician Cardiovascular Disease 07/23/23 documented as of this encounter
--- OUTSIDE RECORDS SUMMARY | 2024-11-04 13:18 | XMS_ITS | Clinical Summary ---
Author Organization [facility] Address [address] [address] Phone Care Team Providers Care Second Language Tutor Name Role Phone Jeff Strickland MD Primary Care Provider Allergies No known active allergies Medications levothyroxine [...] tablet 3 0 Active Continuous Blood Gluc Field Case Manager (FreeStyle Em Vincent) device 1 each daily 0 Active Continuous Blood Gluc Sensor (FreeStyle Em Sensor System) misc 1 each once every 2 weeks 0 Active Lancets (OneTouch Delica Plus [id number]) misc OneTouch Delica Plus Lancet 33 gauge [...] 11/10/2019 Overview (12/17/2019): Kendall Carl 1955 Referring Stock Controller: Alan Mccall Dialysis Info: NOD GFR 13 Type: Time: (Not currently on dialysis) days Blood Type: O NEG Body mass index is 37.36 kg/m . ALERTS Spudder: needs to establish Past Medical History: Diagnosis Date Arthropathy RA. Dr Strickland manages. CHF (congestive heart failure) 2 yrs ago Tank Car Inspector is Dr. Becerra in [place]. CKD (chronic kidney disease), stage V Community acquired pneumonia 2018 [facility] hospitalized. Diabetes mellitus 20 years. Lantus pen. Esophageal reflux takes med Hypercholesteremia 5-10 yrs meds Hypertension takes meds Hypothyroidism meds 20 years Kidney stones 5-6 years ago had 2 in the same year. Malignancy right kidney 2012 Obstructive sleep apnea 3 years. [facility]. Angela remember doctors name Renal cell [...] file Gets together: Not on file Attends yarsani service: Not on file Active member of [...] is the impression of this social media project manager that Kendall Gillris has several positive factors for Kidney transplant candidacy from a psychosocial perspective. Patient appears to have appropriate knowledge of illness. Patient has sufficient insurance coverage and stable financial situation for post transplant needs. No concerns regarding substance abuse, legal issues, or mental health needs. Patient has adequate support system and appropriate discharge plan. Plan: woodworker to provide supportive services as needed. Patient appears to be a reasonable candidate for transplant from a psychosocial perspective. -Post transplant arrangement forms are needed prior to being listed. -Updated toxicology results needed, per protocol Psychiatric Consult Recommended: No Transplant Reed Maker: Joy Tam LCSW RD: 11/09/2019 BMI= [...] nephrectomy. 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 [id number] Immunizations Immunization Administration Dates Next Due Influenza [...] Insurance AETNA PM INTERFACED INSURANCE Care Teams Second Language Tutor Relationship Specialty Start Date End Date Jeff Strickland MD [address] [facility] [address] [facility] [address] [place] [address] PCP - General Internal Medicine 07/15/18
--- OUTSIDE RECORDS SUMMARY | 2024-11-04 13:18 | XMS_ITS | Clinical Summary ---
Author Organization [facility] Address [facility] [place] [address] Care Team Providers Care Movie Producer Name Role Phone Jeff Strickland MD Primary Care Provider [phone] Allergies Active Allergy Reactions Criticality Noted Date [...] by mouth nightly at bedtime. 

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
--- OUTSIDE RECORDS SUMMARY | 2024-11-04 13:18 | XMS_ITS | Encounter Summary ---
Author Organization [facility] Address [address] [place] [address] Phone Care Team Providers Care Straight Tooth Gear Generator Operator Name Role Phone Jeff Strickland MD Primary Care Provider Chan Nicholas MD Unavailable [phone] Alan Mccall MD Unavailable [phone] Lorna Lantigua MD Unavailable Juliette Savage RN Unavailable Pepito Haro MD PhD Unavailable [phone] Solange Guido MD Unavailable Letha Gil RN Unavailable Encounter Details Date Type Department Care Team (Late st Contact Info) Description 05/02/2021 Ophth Exam [facility] Medicine Ophthalmology [address] [place] [address] 1st [place] [id number] Corina Ventura MD PhD [address] [address] Social History Tobacco Use Types [...] on file Legal Sex Male 2:23 AM SALON CUSTOMER EXPERIENCE SPECIALIST Gender Identity Not on file Sexual [...] COVID: Suspected 03/24/2023 03/24/2023 03/24/2023 5:45 PM SALON CUSTOMER EXPERIENCE SPECIALIST COVID19 03/24/2023 03/24/2023 04/08/2023 3:06 AM SALON CUSTOMER EXPERIENCE SPECIALIST COVID: Recovered Comment:Added based on recent COVID infection. 04/08/2023 04/10/2023 07/07/2023 3:06 AM C DT COVID: Suspected 04/10/2024 04/10/2024 04/11/2024 1:24 AM SALON CUSTOMER EXPERIENCE SPECIALIST C. difficile suspected 04/11/2024 04/11/202404/11 1:21 PM SALON CUSTOMER EXPERIENCE SPECIALIST documented as of this encounter Eye Exam [...] arcade Normal Periphery Normal Normal Care Teams Straight Tooth Gear Generator Operator Relationship Specialty Start Date End Date Jeff Strickland MD [address] [address] PCP - General Family Medicine 04/02/18 Chan Nicholas MD [address] [place] [address] [id number] Consulting Physician Gastroenterology 11/24/18 Alan Mccall MD [address] [place] [address] [address] Referring Physician Nephrology 11/24/18 Lorna Lantigua MD [facility] [address] [address] Consulting Physician Cardiology 11/24/18 07/22/23 Juliette Savage, RN [address] [place] [address] Nurse Navigator 06/04/21 03/14/22 Pepito Haro MD PhD [address] [place] [address] Consulting Physician Neurosurgery 12/03/22 Solange Guido MD [address] [facility] [address] [place] [address] Referring Physician Cardiovascular Disease 07/23/23 Letha Gil, RN [address] [facility] [address] [place] [address] SHOP Outpatient Yeast Tender 04/14/24 04/18/24 documented as of this encounter
--- OUTSIDE RECORDS SUMMARY | 2024-11-04 13:18 | XMS_ITS | Patient Health Record ---
Author Organization [facility] Address [address] [place] [address] Care Team Providers Care Foundry Patternmaker Name Role Phone Trenton Hernandez Unavailable [phone] Reason For Referral No Information Medications Medication [...] UNIT)-FOLIC ACID 1 MG TABLET *Reorder from [facility] for eRx and Interaction Alerts* 02/26/2023 Active Azelastine HCl 137 MCG/SPRAY Solution Nasal 02/26/2023 Active Dilt-XR 240 MG Capsule Extended Release 24 Hour Oral 02/26/2023 Active Potassium Chloride ER 10 MEQ Tablet Extended Release Oral 02/26/2023 Active Mounjaro 2.5 MG/0.5ML Solution Pen-injector Subcutaneous *Reorder from [facility] for eRx and Interaction Alerts* 02/26/2023 Active Methocarbamol 500 MG Tablet Oral 02/26/2023 Active Levothyroxine Sodium 112 MCG Tablet Oral 02/26/2023 Active Atorvastatin Calcium 80 MG Tablet Oral 02/26/2023 Active Gabapentin 100 MG Capsule Oral 02/26/2023 Active SODIUM BICARBONATE 1,650 MG-CITRIC ACID 1,000 MG EFFERVESCENT TABLET *Reorder from [facility] for eRx and Interaction Alerts* 02/26/2023 Active Sevelamer Carbonate 800 MG Tablet Oral 02/26/2023 Active IPRATROPIUM BROMIDE 21 MCG (0.03 %) NASAL SPRAY *Reorder from [facility] for eRx and Interaction Alerts* 02/26/2023 [...] ADHESIVE PATCH, MEDICATED TOPICAL *Pick strength-form from [facility] for eRX* 02/26/2023 Active Amoxicillin-Pot Clavulanate 875-125 MG Tablet Oral 02/26/2023 Active Amoxicillin 500 MG Capsule Oral 02/26/2023 Active guanFACINE HCl ER 3 MG Tablet Extended Release 24 Hour Oral 02/26/2023 Active Tamsulosin HCl 0.4 MG Capsule Oral 02/26/2023 Active SEVELAMER HCL 800 MG TABLET *Reorder from [facility] for eRx and Interaction Alerts* 02/26/2023 Active LEVOTHYROXINE 112 MCG CAPSULE *Reorder from [facility] for eRx and Interaction Alerts* 02/26/2023 Active ULTRA-FINE SHORT PEN NEEDLE 31 gauge x 5/16 NEEDLE, DISPOSABLE MISCELLANEOUS *Reorder from [facility] for eRx and Interaction Alerts* 02/26/2023 Active Tylenol PM Extra Strength *Pick strength-form from [facility] for eRX* 02/26/2023 Active Mounjaro 5 MG/0.5ML Solution Pen-injector Subcutaneous *Reorder from [facility] for eRx and Interaction Alerts* 02/26/2023 [...] Date Coverage End Date Aet[employer] [address] [place] [phone] [id number] GRACE INTERIANO Self - patient is the insured Medical (General) History Surgical History Surgery Date(Month/Year) Removal of gallbladder (95648) Cataract surgery (53816) 02/17/2013 Sinus surgery 02/17/2021 Cardiac stent 07/18/2021
--- OUTSIDE RECORDS SUMMARY | 2024-11-04 13:18 | XMS_ITS | Encounter Summary ---
Author Organization [facility] Address [address] [place] [address] Care Team Providers Care Greens Picker Name Role Phone Deandre Bojorquez MD Unavailable Jeff Strickland MD Primary Care Provider Encounter Details Date Type Department Care Team (Late st Contact Info) Description 06/25/2024 Lab Requisition [facility] MAIN LAB [address] [place] [phone] Alan Davenport MD [facility] [place] [address] Social History Tobacco Use Types Packs/Day Years Used Date Smoking Tobacco: Never Smokeless Tobacco: Never Alcohol Use Standard Drinks/Week Comments Not Currently 0 (1 standard drink = 0.6 oz pur e alcohol) socially in past Sex and Gender Information Value Date Recorded Sex Assigned at Male 07/02/2021 2:37 PM CDT Legal Sex Male 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 Gender Identity Male 07/02/2021 2:37 PM [...] 12/06/2024 10:40 AM CDT Office Visit [facility] - Endocrinology [address] [facility], [place] [address] Marbin Flores MD [address] [facility] DIV OF [place] [address] Niraj Turner MD 12[address] [facility] 2L [place] [address] documented as of this encounter Procedures Procedure Name Priority Date/Time Associated Diagnosis Comments HOLD HLA SPECIMEN Routine 06/22/2024 11: 05 AM CDT documented in this encounter Results * HOLD HLA SPECIMEN (06/22/2024 11:05 AM CDT) Hold HLA Specimen 06/25/2024 12:32 PM CDT [facility] ([facility]) Comment:The Hold HLA specime n has been received into the lab and will be held for 5 years at 4 degrees. Blood BLOOD SPECIMEN / Unknown 06/22/2024 11:05 AM CDT 06/25/2024 11:05 AM CDT Alan Davenport MD LAB - BLOOD BANK ORDERABLES F inal Result [facility] ([facility]) [address] [place] [address], [facility] documented in this encounter Visit Diagnoses Not on filedocumented in this encounter Additional Health Concerns Infection Onset Date Last Indicated Resolved Time COVID-19 Under Investigation 09/13/2024 09/13/2024 09/13/2024 6:36 AM CDT documented as of this encounter Care Teams Greens Picker Relationship Specialty Start Date End Date Jeff Strickland MD [address] [place] [address] PCP - General 03/05/18 [place] [address] [facility] [address] [place] [address] Orthopedic Surgery 03/28/17 documented as of this encounter
--- OUTSIDE RECORDS SUMMARY | 2024-11-04 13:21 | XMS_ITS | Encounter Summary ---
Author Organization [facility] Address [address] [facility] [place] [address] Care Team Providers Care Visiting Teacher Name Role Phone Deandre Bojorquez MD Unavailable Jeff Strickland MD Primary Care Provider [phone] Reason for Visit * Reason Onset Date Comments Post-Op 09/03/2024 Encounter Details Date Type Department Care Team (Late st Contact Info) Description 09/03/2024 Telephone [facility] - Cardiology [address] [facility], [facility] [address] [place] [address] Hannah Goodman MD [address] [facility] C[facility] 2L [place] [address] Post-Op Social History Tobacco Use Types Packs/Day [...] and heating? Not hard at all 09/04/2024 [facility] of Occupat ional Health - Occupational Stress [...] any time in the past 12 m [facility], were you homeless or living in a fpc (including now)? 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 PNEUMATIC Gender Identity Male 07/02/2021 2:37 PM CDT [...] confused post op Patient Call Back number: [phone] documented in this encounter Plan of Treatment Upcoming Encounters Date Type Department Care Team (Late st Contact Info) Description 12/06/2024 10:40 AM CDT Office Visit [facility] - Endocrinology [facility], [place] [address] Marbin Flores MD [address] [facility] DIV OF [place]BD [place] [address] Niraj Turner MD 12[address] [facility] 2L [place] [address] documented as of this encounter Visit Diagnoses Not on filedocumented in this encounter Additional Health Concerns Infection Onset Date Last Indicated Resolved Time COVID-19 Under Investigation 09/13/2024 09/13/2024 09/13/2024 6:36 AM CDT documented as of this encounter Care Teams Visiting Teacher Relationship Specialty Start Date End Date Jeff Strickland MD [address] [place] [address] PCP - General 03/05/18 [place] [address] [address] Orthopedic Surgery 03/28/17 documented as of this encounter
--- OUTSIDE RECORDS SUMMARY | 2024-11-04 13:21 | XMS_ITS | Encounter Summary ---
Author Organization [facility] Address [address] [place] [address] Care Team Providers Care Supervisor Brew House Name Role Phone Deandre Bojorquez MD Unavailable [phone] Jeff Strickland MD Primary Care Provider [phone] Encounter Details Date Type Department Care Team (Late st Contact Info) Description 09/10/2024 Telephone [facility] - Centralized Scheduling [facility] [place] [address] Niraj Turner MD [facility] [place] [address] Social History Tobacco Use Types Packs/Day Years [...] and heating? Not hard at all 09/14/2024 [facility] [place] of Occupat [facility] - Occupational Stress Questionnaire Answer Date [...] living in a snf (including now)? No 09/14/2024 Sex and Gender Information Value Date Recorded Sex Assigned at Male 07/02/2021 2:37 PM CDT Legal Sex Male 10:14 PM DIRECTOR LIFE SCIENCES Gender Identity Male 07/02/2021 2:37 PM CDT [...] Description 12/06/2024 10:40 AM CDT Office Visit [facility] - Endocrinology [address] [place] [address], [place] [address] Marbin Flores MD 1201 [facility] DIV OF [place] [address] Niraj Turner MD 1225 [facility] 2L [place] [address] documented as of this encounter Visit Diagnoses Not on filedocumented in this encounter Additional Health Concerns Infection Onset Date Last Indicated Resolved Time COVID-19 Under Investigation 09/13/2024 09/13/2024 09/13/2024 6:36 AM CDT documented as of this encounter Care Teams Supervisor Brew House Relationship Specialty Start Date End Date Jeff Strickland MD [address] [place] [address] PCP - General 03/05/18 [place] [address] [place] [address] Orthopedic Surgery 03/28/17 documented as of this encounter
== END 2024-11-04 14:19 | disposition left against medical advice (07) ==
PROVIDERS: PCP Family Medicine
DX: R11.2 Nausea with vomiting, unspecified (principal)
CPT/HCPCS: 99199

== ENCOUNTER 2024-11-04 14:55 | Emergency (ER) | payer MEDICARE, SELFPAY ==
[2024-11-04] VITALS (21 sets, daily range): BP systolic 120–186; BP diastolic 62–90; PULSE 63–74; RESP 8–20; TEMP 37.1; O2SAT 95–100
--- NOTE | ~2024-11-04 | CT_ITS ---
CT ABDOMEN AND PELVIS WITHOUT CONTRAST Clinical History: elev LFTs Comparison: 08/21/2023 Technique: Unenhanced axial images lung bases to symphysis pubis Coronal, sagittal reformats CT images acquired with automatic exposure control for dose reduction DLP: 1191 mGy-cm Findings: Without intravenous contrast, sensitivity for detecting visceral parenchymal abnormalities decreased. Lung bases: Clear. Visualized heart and pericardium: Trace pericardial effusion. Liver: Probable micronodular contour. Gallbladder: Removed. Spleen: Unremarkable. Pancreas: Unremarkable. Adrenal glands: Unremarkable. Kidneys: Right kidney- No hydronephrosis. Several stones. Cysts and hyperdense cysts. Dystrophic calcification anteriorly Left kidney- No hydronephrosis. Several stones. Cysts and hyperdense cysts. Distal esophagus/stomach: Unremarkable. Small bowel loops: Normal caliber and wall thickness. Colon: Wall thickening distal loops. Normal RLQ appendix. Nodes: No enlarged nodes. Peritoneum: Mild scattered ascites and/or dialysate. No free intraperitoneal air. PD catheter. Urinary bladder: Wall thickening but under distended. Prostate: No enlarged. Bones: No acute bony abnormality. Soft tissues: Unremarkable. Unopacified abdominal aorta: No aneurysmal dilatation. Atherosclerotic disease. IMPRESSION: 1. Probable colitis. 2. No other acute abnormality. 3. Multiple bilateral renal cysts as before. Recommend surveillance. Reviewed, dictated and finalized at location R.
--- OUTSIDE RECORDS SUMMARY | 2024-11-04 14:57 | XMS_ITS | Encounter Summary ---
Author Organization [facility] Address [facility] [place] [address] Care Team Providers Care Commission Associate Name Role Phone Deandre Bojorquez MD Unavailable Jeff Strickland MD Primary Care Provider [phone] Encounter Details Date Type Department Care Team (Late st Contact Info) Description 04/10/2023 Lab Requisition [facility] MAIN LAB [address] [place] [phone] Alan Davenport MD [facility] [place] [address] Social History Tobacco Use Types Packs/Day Years Used Date Smoking Tobacco: Never Smokeless Tobacco: Never Alcohol Use Standard Drinks/Week Comments Not Currently 0 (1 standard drink = 0.6 oz pur e alcohol) socially in past Sex and Gender Information Value Date Recorded Sex Assigned at Male 07/02/2021 2:37 PM CDT Legal Sex Male 10:14 PM SYSTEM CONSULTANT Gender Identity Male 07/02/2021 2:37 PM [...] [facility] 12[address] [facility], [place] [address] Marbin Flores MD 1201 [facility] DIV [place] [address] Niraj Turner MD 1225 [facility] 2L [place] [address] documented as of this encounter Procedures Procedure Name Priority Date/Time Associated Diagnosis Comments HOLD HLA SPECIMEN Routine 04/02/2023 3:0 1 PM SYSTEM CONSULTANT documented in this encounter Results * HOLD HLA SPECIMEN (04/02/2023 3:01 PM SYSTEM CONSULTANT) Hold HLA Specimen 04/10/2023 4:01 PM SYSTEM CONSULTANT [facility] ([facility]) Comment:The Hold HLA specime n has been received into the lab and will be held for 5 years at 4 degrees. Blood BLOOD SPECIMEN / Unknown 04/02/2023 3:01 PM SYSTEM CONSULTANT 04/10/2023 3:01 PM SYSTEM CONSULTANT Alan Davenport MD LAB - BLOOD BANK ORDERABLES F inal Result [facility] [address] [place] [address], [facility] documented in this encounter Visit Diagnoses Not on filedocumented in this encounter Additional Health Concerns Infection Onset Date Last Indicated Resolved Time COVID-19 Under Investigation 09/13/2024 09/13/2024 09/13/2024 6:36 AM CDT documented as of this encounter Care Teams Commission Associate Relationship Specialty Start Date End Date Jeff Strickland MD [address] [place] [address] PCP - General 03/05/18 [place] [address] [address] Orthopedic Surgery 03/28/17 documented as of this encounter
--- OUTSIDE RECORDS SUMMARY | 2024-11-04 14:57 | XMS_ITS | Encounter Summary ---
Author Organization [facility] Address [address] [place] [address] Care Team Providers Care Cobbler Apprentice Name Role Phone Deandre Bojorquez MD Unavailable [phone] Jeff Strickland MD Primary Care Provider [phone] Encounter Details Date Type Department Care Team (Late st Contact Info) Description 02/07/2023 Lab Requisition [facility] MAIN LAB [address] [place] [phone] Alan Davenport MD [facility] OF [place] [address] Social History Tobacco Use Types Packs/Day Years Used Date Smoking Tobacco: Never Smokeless Tobacco: Never Alcohol Use Standard Drinks/Week Comments Not Currently 0 (1 standard drink = 0.6 oz pur e alcohol) socially in past Sex and Gender Information Value Date Recorded Sex Assigned at Male 07/02/2021 2:37 PM CDT Legal Sex Male 10:14 PM SIGN BUILDER SUPERVISOR Gender Identity Male 07/02/2021 2:37 PM [...] 08/04/2020 12:15 PM CDT Monique Suáerz RN documented in this encounter Plan of Treatment Upcoming Encounters Date Type Department Care Team (Late st Contact Info) Description 12/06/2024 10:40 AM CDT Office Visit [facility] - Endocrinology [address] [facility], [place] [address] Marbin Flores MD 1201 [facility] DIV OF [place] [address] Niraj Turner MD 1225 [facility] 2L [place] [address] documented as of this encounter Procedures Procedure Name Priority Date/Time Associated Diagnosis Comments HOLD HLA SPECIMEN Routine 2023 7:5 8 AM SIGN BUILDER SUPERVISOR documented in this encounter Results * HOLD HLA SPECIMEN (2023 7:58 AM SIGN BUILDER SUPERVISOR) Hold HLA Specimen 02/07/2023 9:01 AM SIGN BUILDER SUPERVISOR [facility] ([facility]) Comment:The Hold HLA specime n has been received into the lab and will be held for 5 years at 4 degrees. Blood BLOOD SPECIMEN / Unknown 2023 7:58 AM SIGN BUILDER SUPERVISOR 02/07/2023 7:59 AM SIGN BUILDER SUPERVISOR Alan Davenport MD LAB - BLOOD BANK ORDERABLES F inal Result [facility] [address] [place] [address], [facility] documented in this encounter Visit Diagnoses Not on filedocumented in this encounter Additional Health Concerns Infection Onset Date Last Indicated Resolved Time COVID-19 Under Investigation 09/13/2024 09/13/2024 09/13/2024 6:36 AM CDT documented as of this encounter Care Teams Cobbler Apprentice Relationship Specialty Start Date End Date Jeff Strickland MD [address] [place] [address] PCP - General 03/05/18 [place] [address] [address] Orthopedic Surgery 03/28/17 documented as of this encounter
--- OUTSIDE RECORDS SUMMARY | 2024-11-04 14:57 | XMS_ITS | Encounter Summary ---
Author Organization [facility] Address [address] [place] [address] Care Team Providers Care Toll Gate Keeper Name Role Phone Deandre Bojorquez MD Unavailable [phone] Jeff Strickland MD Primary Care Provider [phone] Encounter Details Date Type Department Care Team (Late st Contact Info) Description 07/31/2023 Lab [facility]quisition [facility] MA[facility] LAB [address] [place] [phone] Alan Davenport MD [facility] OF ABD [place] [address] Social History Tobacco Use Types Packs/Day Years Used Date Smoking Tobacco: Never Smokeless Tobacco: Never Alcohol Use Standard Drinks/Week Comments Not Currently 0 (1 standard drink = 0.6 oz pur e alcohol) socially in past Sex and Gender Information Value Date Recorded Sex Assigned at Male 07/02/2021 2:37 PM CDT 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 Gender Identity Male 07/02/2021 2:37 PM [...] Description 12/06/2024 10:40 AM CDT Office Visit [facility] - Endocrinology [address] [facility], [place] [address] Marbin Flores MD 1201 [facility] DIV OF ABD [place] [address] Niraj Turner MD 1225 [facility] 2L [place] [address] documented as of this encounter Procedures Procedure Name Priority Date/Time Associated Diagnosis Comments HOLD HLA SPECIMEN Routine 07/23/2023 2:0 5 PM CDT documented in this encounter Results * HOLD HLA SPECIMEN (07/23/2023 2:05 PM CDT) Hold HLA Specimen 07/31/2023 3:32 PM CDT [facility] ([facility]) Comment:The Hold HLA specime n has been received into the lab and will be held for 5 years at 4 degrees. Blood BLOOD SPECIMEN / Unknown 07/23/2023 2:05 PM CDT 07/31/2023 2:06 PM CDT Alan Davenport MD LAB - BLOOD BANK ORDERABLES F inal Result [facility] ([facility]) [address] [place] [address], [facility] documented in this encounter Visit Diagnoses Not on filedocumented in this encounter Additional Health Concerns Infection Onset Date Last Indicated Resolved Time COVID-19 Under Investigation 09/13/2024 09/13/2024 09/13/2024 6:36 AM CDT documented as of this encounter Care Teams Toll Gate Keeper Relationship Specialty Start Date End Date Jeff Strickland MD [address] [place] [address] PCP - General 03/05/18 [place] [address] [facility] [address] [place] [address] Orthopedic Surgery 03/28/17 documented as of this encounter
--- OUTSIDE RECORDS SUMMARY | 2024-11-04 14:58 | XMS_ITS | Encounter Summary ---
Author Organization [facility] Address [facility] [place] [address] Care Team Providers Care Accreditation Coordinator Name Role Phone Deandre Bojorquez MD Unavailable [phone] Jeff Strickland MD Primary Care Provider [phone] Encounter Details Date Type Department Care Team (Late st Contact Info) Description 05/29/2023 Lab Requisition [facility] MAIN LAB [address] [place] [phone] Alan Davenport MD [facility] OF ABD [place] [address] Social History Tobacco Use Types Packs/Day Years Used Date Smoking Tobacco: Never Smokeless Tobacco: Never Alcohol Use Standard Drinks/Week Comments Not Currently 0 (1 standard drink = 0.6 oz pur e alcohol) socially in past Sex and Gender Information Value Date Recorded Sex Assigned at Male 07/02/2021 2:37 PM CDT 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, [place] [address] Marbin Flores MD 1201 [facility] DIV OF [place] [address] Niraj Turner MD 1225 [facility] 2L [place] [address] documented as of this encounter Procedures Procedure Name Priority Date/Time Associated Diagnosis Comments HOLD HLA SPECIMEN Routine 05/21/2023 9:2 4 AM CDT documented in this encounter Results * HOLD HLA SPECIMEN (05/21/2023 9:24 AM CDT) Hold HLA Specimen 05/29/2023 10:30 AM CDT [facility] ([facility]) Comment:The Hold HLA specime n has been received into the lab and will be held for 5 years at 4 degrees. Blood BLOOD SPECIMEN / Unknown 05/21/2023 9:24 AM CDT 05/29/2023 9:24 AM CDT Alan Davenport MD LAB - BLOOD BANK ORDERABLES F inal Result [facility] ([facility]) [address] [place] [address], [facility] documented in this encounter Visit Diagnoses Not on filedocumented in this encounter Additional Health Concerns Infection Onset Date Last Indicated Resolved Time COVID-19 Under Investigation 09/13/2024 09/13/2024 09/13/2024 6:36 AM CDT documented as of this encounter Care Teams Accreditation Coordinator Relationship Specialty Start Date End Date Jeff Strickland MD [address] [place] [address] PCP - General 03/05/18 [place] [address] [facility] [address] [place] [address] Orthopedic Surgery 03/28/17 documented as of this encounter
--- OUTSIDE RECORDS SUMMARY | 2024-11-04 14:58 | XMS_ITS | Encounter Summary ---
Author Organization [facility] Address [address] [place] [address] Care Team Providers Care Kiln Pusher Name Role Phone Deandre Bojorquez MD Unavailable [phone] Jeff Strickland MD Primary Care Provider [phone] Encounter Details Date Type Department Care Team (Late st Contact Info) Description 03/30/2024 Lab Requisition [facility] MAIN LAB [address] [place] [phone] Alan Davenport MD [facility] OF [place] [address] Social History Tobacco Use Types Packs/Day Years Used Date Smoking Tobacco: Never Smokeless Tobacco: Never Alcohol Use Standard Drinks/Week Comments Not Currently 0 (1 standard drink = 0.6 oz pur e alcohol) socially in past Sex and Gender Information Value Date Recorded Sex Assigned at Male 07/02/2021 2:37 PM CDT Legal Sex Male 10:14 PM MAT PACKER Gender Identity Male 07/02/2021 2:37 PM CDT [...] 12/06/2024 10:40 AM CDT Office Visit [facility] - Endocrinology [address] [facility], [place] [address] Marbin Flores MD [address] [facility] DIV OF [place] [address] Niraj Turner MD 1225 [facility] 2L [place] [address] documented as of this encounter Procedures Procedure Name Priority Date/Time Associated Diagnosis Comments HOLD HLA SPECIMEN Routine 03/25/2024 2:5 1 PM MAT PACKER documented in this encounter Results * HOLD HLA SPECIMEN (03/25/2024 2:51 PM MAT PACKER) Hold HLA Specimen 03/30/2024 4:01 PM MAT PACKER [facility] ([facility]) Comment:The Hold HLA specime n has been received into the lab and will be held for 5 years at 4 degrees. Blood BLOOD SPECIMEN / Unknown 03/25/2024 2:51 PM MAT PACKER 03/30/2024 2:51 PM MAT PACKER Alan Davenport MD LAB - BLOOD BANK ORDERABLES F inal Result [facility] [address] [place] [address], [facility] documented in this encounter Visit Diagnoses Not on filedocumented in this encounter Additional Health Concerns Infection Onset Date Last Indicated Resolved Time COVID-19 Under Investigation 09/13/2024 09/13/2024 09/13/2024 6:36 AM CDT documented as of this encounter Care Teams Kiln Pusher Relationship Specialty Start Date End Date Jeff Strickland MD [address] [place] [address] PCP - General 03/05/18 [place] [address] [address] Orthopedic Surgery 03/28/17 documented as of this encounter
--- OUTSIDE RECORDS SUMMARY | 2024-11-04 14:58 | XMS_ITS | Encounter Summary ---
Author Organization [facility] Address [address] [place] [address] Care Team Providers Care Crisis Clinician Name Role Phone Deandre Bojorquez MD Unavailable [phone] Jeff Strickland MD Primary Care Provider [phone] Encounter Details Date Type Department Care Team (Late st Contact Info) Description 10/28/2023 Lab Requisition [facility] MAIN LAB [address] [place] [phone] Alan Davenport MD 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 Gender Identity Male 07/02/2021 2:37 PM CDT [...] [facility] [address] [facility], [place] [address] Marbin Flores MD 1201 [facility] DIV OF ABD [place] [address] Niraj Turner MD [address] [facility] 2L [place] [address] documented as of this encounter Procedures Procedure Name Priority Date/Time Associated Diagnosis Comments HOLD HLA SPECIMEN Routine 10/22/2023 3:5 0 PM CDT documented in this encounter Results * HOLD HLA SPECIMEN (10/22/2023 3:50 PM CDT) Hold HLA Specimen 10/28/2023 5:00 PM CDT [facility] ([facility]) Comment:The Hold HLA specime n has been received into the lab and will be held for 5 years at 4 degrees. Blood BLOOD SPECIMEN / Unknown 10/22/2023 3:50 PM CDT 10/28/2023 3:50 PM CDT Alan Davenport MD LAB - BLOOD BANK ORDERABLES F inal Result [facility] [address] [place] [address], [facility] documented in this encounter Visit Diagnoses Not on filedocumented in this encounter Additional Health Concerns Infection Onset Date Last Indicated Resolved Time COVID-19 Under Investigation 09/13/2024 09/13/2024 09/13/2024 6:36 AM CDT documented as of this encounter Care Teams Crisis Clinician Relationship Specialty Start Date End Date Jeff Strickland MD [address] [place] [address] PCP - General 03/05/18 [place] [address] [facility] [address] [place] [address] Orthopedic Surgery 03/28/17 documented as of this encounter
--- OUTSIDE RECORDS SUMMARY | 2024-11-04 14:58 | XMS_ITS | Encounter Summary ---
Author Organization [facility] Address [address] [place] [address] Care Team Providers Care Vessel Welder Name Role Phone Deandre Bojorquez MD Unavailable [phone] Jeff Strickland MD Primary Care Provider [phone] Encounter Details Date Type Department Care Team (Late st Contact Info) Description 09/30/2023 Lab Requisition [facility] MAIN LAB [address] [place] [phone] Alan Davenport MD [facility] [place] [address] Social History Tobacco Use Types Packs/Day Years Used Date Smoking Tobacco: Never Smokeless Tobacco: Never Alcohol Use Standard Drinks/Week Comments Not Currently 0 (1 standard drink = 0.6 oz pur e alcohol) socially in past Sex and Gender Information Value Date Recorded Sex Assigned at Male 07/02/2021 2:37 PM CDT Legal Sex Male 10:14 PM 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, [place] [address] Marbin Flores MD [address] [facility] DIV [place] [address] Niraj Turner MD [address] [facility] 2L [place] [address] documented as of this encounter Procedures Procedure Name Priority Date/Time Associated Diagnosis Comments HOLD HLA SPECIMEN Routine 09/24/2023 3:2 7 PM CDT documented in this encounter Results * HOLD HLA SPECIMEN (09/24/2023 3:27 PM CDT) Hold HLA Specimen 09/30/2023 4:32 PM CDT [facility] ([facility]) Comment:The Hold HLA specime n has been received into the lab and will be held for 5 years at 4 degrees. Blood BLOOD SPECIMEN / Unknown 09/24/2023 3:27 PM CDT 09/30/2023 3:27 PM CDT Alan Davenport MD LAB - BLOOD BANK ORDERABLES F inal Result [facility] ([facility]) [address] [place] [address], [facility] documented in this encounter Visit Diagnoses Not on filedocumented in this encounter Additional Health Concerns Infection Onset Date Last Indicated Resolved Time COVID-19 Under Investigation 09/13/2024 09/13/2024 09/13/2024 6:36 AM CDT documented as of this encounter Care Teams Vessel Welder Relationship Specialty Start Date End Date Jeff Strickland MD [address] [place] [address] PCP - General 03/05/18 [place] [address] [facility] [address] [place] [address] Orthopedic Surgery 03/28/17 documented as of this encounter
--- OUTSIDE RECORDS SUMMARY | 2024-11-04 14:58 | XMS_ITS | Encounter Summary ---
Author Organization [facility] Address [facility] [place] [address] Care Team Providers Care Behavior Support Specialist Name Role Phone Deandre Bojorquez MD Unavailable [phone] Jeff Strickland MD Primary Care Provider [phone] Encounter Details Date Type Department Care Team (Late st Contact Info) Description 11/21/2023 Lab Requisition [facility] MAIN LAB [address] [place] [phone] Alan Davenport MD [facility] [place] [address] Social History Tobacco Use Types Packs/Day Years Used Date Smoking Tobacco: Never Smokeless Tobacco: Never Alcohol Use Standard Drinks/Week Comments Not Currently 0 (1 standard drink = 0.6 oz pur e alcohol) socially in past Sex and Gender Information Value Date Recorded Sex Assigned at Male 07/02/2021 2:37 PM CDT 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 Gender Identity Male 07/02/2021 2:37 PM [...] 12/06/2024 10:40 AM CDT Office Visit [facility] Physician Group - Endocrinology [address] [facility], [place] [address] Marbin Flores MD [address] [facility] DIV OF [place] [address] Niraj Turner MD [address] [facility] 2L [place] [address] documented as of this encounter Procedures Procedure Name Priority Date/Time Associated Diagnosis Comments HOLD HLA SPECIMEN Routine 11/18/2023 12: 16 PM CDT documented in this encounter Results * HOLD HLA SPECIMEN (11/18/2023 12:16 PM CDT) Hold HLA Specimen 11/21/2023 1:31 PM CDT [facility] ([facility]) Comment:The Hold HLA specime n has been received into the lab and will be held for 5 years at 4 degrees. Blood BLOOD SPECIMEN / Unknown 11/18/2023 12:16 PM CDT 11/21/2023 12:17 PM CDT Alan Davenport MD LAB - BLOOD BANK ORDERABLES F inal Result [facility] ([facility] [address] [place] [address], [facility] documented in this encounter Visit Diagnoses Not on filedocumented in this encounter Additional Health Concerns Infection Onset Date Last Indicated Resolved Time COVID-19 Under Investigation 09/13/2024 09/13/2024 09/13/2024 6:36 AM CDT documented as of this encounter Care Teams Behavior Support Specialist Relationship Specialty Start Date End Date Jeff Strickland MD [address] [place] [address] PCP - General 03/05/18 [place] [address] [facility] [address] [place] [address] Orthopedic Surgery 03/28/17 documented as of this encounter
--- OUTSIDE RECORDS SUMMARY | 2024-11-04 14:58 | XMS_ITS | Encounter Summary ---
Author Organization [facility] Address [address] [place] [address] Care Team Providers Care Metallurgical Engineering Technician Name Role Phone Deandre Bojorquez MD Unavailable [phone] Jeff Strickland MD Primary Care Provider [phone] Encounter Details Date Type Department Care Team (Late st Contact Info) Description 03/12/2024 Lab Requisition [facility] MAIN LAB [address] [place] [phone] Alan Davenport MD [facility] [place] [address] Social History Tobacco Use Types Packs/Day Years Used Date Smoking Tobacco: Never Smokeless Tobacco: Never Alcohol Use Standard Drinks/Week Comments Not Currently 0 (1 standard drink = 0.6 oz pur e alcohol) socially in past Sex and Gender Information Value Date Recorded Sex Assigned at Male 07/02/2021 2:37 PM CDT Legal Sex Male 10:14 PM UM SPECIALIST Gender Identity Male 07/02/2021 2:37 PM [...] Description 12/06/2024 10:40 AM CDT Office Visit [facility] Physician Group - Endocrinology [address] [facility], [place] [address] Marbin Flores MD [address] [facility] DIV [place] [address] Niraj Turner MD [address] [facility] 2L [place] [address] documented as of this encounter Procedures Procedure Name Priority Date/Time Associated Diagnosis Comments HOLD HLA SPECIMEN Routine 03/05/2024 1:4 0 PM UM SPECIALIST documented in this encounter Results * HOLD HLA SPECIMEN (03/05/2024 1:40 PM UM SPECIALIST) Hold HLA Specimen 03/12/2024 3:00 PM UM SPECIALIST [facility] (NORTH) Comment:The Hold HLA specime n has been received into the lab and will be held for 5 years at 4 degrees. Blood BLOOD SPECIMEN / Unknown 03/05/2024 1:40 PM UM SPECIALIST 03/12/2024 1:40 PM UM SPECIALIST Alan Davenport MD LAB - BLOOD BANK ORDERABLES F inal Result [facility] [address] [place] [address], [facility] documented in this encounter Visit Diagnoses Not on filedocumented in this encounter Additional Health Concerns Infection Onset Date Last Indicated Resolved Time COVID-19 Under Investigation 09/13/2024 09/13/2024 09/13/2024 6:36 AM CDT documented as of this encounter Care Teams Metallurgical Engineering Technician Relationship Specialty Start Date End Date Jeff Strickland MD [address] [place] [address] PCP - General 03/05/18 [place] [address] [address] Orthopedic Surgery 03/28/17 documented as of this encounter
--- OUTSIDE RECORDS SUMMARY | 2024-11-04 14:58 | XMS_ITS | Encounter Summary ---
Author Organization [facility] Address [address] [place] [address] Phone Care Team Providers Care Therapist Phys Name Role Phone Jeff Strickland MD Primary Care Provider Chan Nicholas MD Unavailable [phone] Alan Mccall MD Unavailable [phone] Lorna Lantigua MD Unavailable [phone] Juliette Savage RN Unavailable Pepito Haro MD PhD Unavailable [phone] Solange Guido MD Unavailable Letha Gil RN Unavailable Encounter Details Date Type Department Care Team (Late st Contact Info) Description 05/02/2021 Ophth Exam [facility] Medicine Ophthalmology [address] [place] [address] 1st [place] [address] Corina Ventura MD PhD [address] [address] Social History Tobacco Use Types [...] on file Legal Sex Male 2:23 AM DRAMATIC DIRECTOR Gender Identity Not on file Sexual [...] COVID: Suspected 03/24/2023 03/24/2023 03/24/2023 5:45 PM DRAMATIC DIRECTOR COVID19 03/24/2023 03/24/2023 04/08/2023 3:06 AM DRAMATIC DIRECTOR COVID: Recovered Comment:Added based on recent COVID infection. 04/08/2023 04/10/2023 07/07/2023 3:06 AM C DT COVID: Suspected 04/10/2024 04/10/2024 04/11/2024 1:24 AM DRAMATIC DIRECTOR C. difficile suspected 04/11/2024 04/11/202404/11 1:21 PM DRAMATIC DIRECTOR documented as of this encounter Eye Exam [...] arcade Normal Periphery Normal Normal Care Teams Therapist Phys Relationship Specialty Start Date End Date Jeff Strickland MD [address] [address] PCP - General Family Medicine 04/02/18 Chan Nicholas MD [address] [place] [address] [id number] Consulting Physician Gastroenterology 11/24/18 Alan Mccall MD [address] [place] [address] [address] Referring Physician Nephrology 11/24/18 Lorna Lantigua MD [facility] [address] [address] Consulting Physician Cardiology 11/24/18 07/22/23 Juliette Savage, RN [address] [place] [address] Nurse Navigator 06/04/21 03/14/22 Pepito Haro MD PhD [address] [place] [address] Consulting Physician Neurosurgery 12/03/22 Solange Guido MD [address] [facility] [address] [place] [address] Referring Physician Cardiovascular Disease 07/23/23 Letha Gil, RN [address] [facility] [address] [place] [address] SHOP Outpatient Director Of Technology 04/14/24 04/18/24 documented as of this encounter
--- OUTSIDE RECORDS SUMMARY | 2024-11-04 14:58 | XMS_ITS | Clinical Summary ---
Author Organization [facility] Address [address] [place] [address] Care Team Providers Care Process Supervisor Name Role Phone Jeff Strickland MD [...] mouth daily. Active nystatin-triamc inolone (MYCOLOG II) 583680-0.1 UNIT/GM-% Cream 5 Active ondansetron (ZOFRAN-ODT) 4 [...] 10/29/2024 Telephone [facility] - Cardiology [facility] [address] [place] [address] Suly Smith APRN, TELECOMMUNICATION SYSTEMS DESIGNER 10/15/2024 Telephone [facility] Cardiology [facility] [address] [place] [address] Hannah Goodman MD 10/14/2024 2:40 PM CDT Clinical Support [facility] [address] [place] [phone] [facility] Cardiology Dressing change (Primary Dx) Discharge [...] Medical Group - Cardiology - [facility] [place] [address] Hannah Goodman MD 2 [facility] NORY [facility] [address] [place] [address] 04/11/2025 11:30 AM HAND WOOD SANDER Office Visit [facility] - Cardiology - [place] [address]2 [place] [address] Maylin Cutler, 2 [facility] [address] [place] [address] Health Maintenance Due Date Last Done Comments [...] topic Insurance MEDICARE C AETNA Care Teams Process Supervisor Relationship Specialty Start Date End Date Jeff Strickland MD [address] [place] [address] PCP - General Family Medicine 10/14/24
--- OUTSIDE RECORDS SUMMARY | 2024-11-04 14:58 | XMS_ITS | Encounter Summary ---
Author Organization [facility] Address [address] [place] [address] Care Team Providers Care Certified Surgical Technologist Name Role Phone Jeff Strickland MD Primary Care Provider Chan Nicholas MD Unavailable Alan Mccall MD Unavailable Pepito Haro MD PhD Unavailable Solange Guido MD Unavailable [phone] Encounter Details Date Type Department Care Team (Late st Contact Info) Description 07/26/2024 Orders Only [facility] Health Information Management [address] [place] [address] Scanning, Provider Social History Tobacco Use Types Packs/Day Years Used Date Smoking Tobacco: Never Smokeless Tobacco: Never Alcohol Use Standard Drinks/Week Comments Yes 0 (1 standard drink = 0.6 oz pur e alcohol) rarely [facility] Utilities Answer Date Recorded In the past 12 months has [employer] electric, gas, oil, or water company threatened [...] often do you attend chur ch or yarsani services? Never 03/25/2023 Do you belong to [...] on file Legal Sex Male 2:23 AM ADMISSIONS CONSULTANT Gender Identity Not on file Sexual [...] on filedocumented in this encounter Care Teams Certified Surgical Technologist Relationship Specialty Start Date End Date Jeff Strickland MD [address] [place] [address] [address] [address] PCP - General Family Medicine 04/02/18 Chan Nicholas MD [facility] [address] [address] Consulting Physician Gastroenterology 11/24/18 Alan Mccall MD [address] [place] [address] [address] [address] Referring Physician Nephrology 11/24/18 Pepito Haro MD PhD [facility] [place] [id number] Consulting Physician Neurosurgery 12/03/22 Solange Guido MD [address] [facility] [address] [place] [address] Referring Physician Cardiovascular Disease 07/23/23 documented as of this encounter
--- OUTSIDE RECORDS SUMMARY | 2024-11-04 14:58 | XMS_ITS | Encounter Summary ---
Author Organization [facility] Address [address] [place] [address] Care Team Providers Care Orthopedic Physician Name Role Phone Deandre Bojorquez MD Unavailable Jeff Strickland MD Primary Care Provider [phone] Encounter Details Date Type Department Care Team (Late st Contact Info) Description 09/24/2024 Results Follow-Up [facility] Early Admission Unit [address] [place] [phone] Angel Crook MD [address] [place] [address] Social History Tobacco Use Types Packs/Day Years [...] and heating? Not hard at all 09/24/2024 [facility] [place] [facility] Occupat ional Health - Occupational Stress [...] time in the past 12 m [facility], were you homeless or living in a detention (including now)? 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 Gender Identity Male 07/02/2021 2:37 PM CDT [...] 10:40 AM CDT Office Visit [facility] Physician Group - Endocrinology [address] [place] [address], [place] [address] Marbin Flores MD [address]01 [facility] DIV OF ABD [place] [address] Niraj Turner MD [address] [facility] 2L [place] [address] documented as of this encounter Visit Diagnoses Not on filedocumented in this encounter Care Teams Orthopedic Physician Relationship Specialty Start Date End Date Jeff Strickland MD [address] [place] [address] PCP - General 03/05/18 [place] [address] [place] [address] Orthopedic Surgery 03/28/17 documented as of this encounter
--- OUTSIDE RECORDS SUMMARY | 2024-11-04 14:58 | XMS_ITS | Clinical Summary ---
Author Organization [facility] Address [facility] [place] [address] Care Team Providers Care Circuit Board Assembler Name Role Phone Jeff Strickland MD [...] by mouth nightly at bedtime. 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
--- OUTSIDE RECORDS SUMMARY | 2024-11-04 14:58 | XMS_ITS | Clinical Summary ---
Author Organization [facility] [employer] Address [address] [place] [address] Care Team Providers Care Cycle Director Name Role Phone Deandre Bojorquez MD Unavailable [phone] Jeff Strickland MD Primary Care Provider [phone] Source Comments [facility],non-owned Affiliates and Associated Physician Practices is amultiple site organization consisting of ambulatory clinics and hospital sitesin [place], [place], [place] and [place]. This disclosure is being madepursuant to the Care Everywhere program and may not contain all information available regarding this patient. Last updated 17.[facility] Allergies Active Allergy Reactions Criticality [...] 80 MG tabletIndication s:Coronary artery disease involving mesa grande coronary artery of mesa grande heart without angina pectoris Take 1 (one) tablet by mouth once daily 90 tablet 3 12/05/19 24 Active B Padxbfv-I-Nblwq Acid (Dialyvite 800) 0.8 MG 1 tablet Orally Once a day for 30 day(s) Active lisinopril (Prinivil; Zestril) 20 MG tabletIndication s:Coronary artery disease involving mesa grande coronary artery of mesa grande heart without angina pectoris,Resista nt hypertension Take [...] Low Dose 81 MG tabletIndication s:CAD in mesa grande artery TAKE 1 TABLET BY MOUTH ONCE DAILY 90 tablet 3 08/24/19 25 Active HYDROcodone-acet aminophen (Jud) 5-325 MG tablet Take 1 (one) tablet [...] not taking.Reported on 10/19/2024 nystatin-triamci nolone (Mycolog) 495426-2.1 UNIT/GM-% cream 10/06/19 025 Discontin ued(List Clean-Up) [...] -consider sevelamer but will defer to outpt rangeland management specialist -avoid nephrotoxic agents, and dose meds renally [...] Plan (09/24/2024 6:20 AM CDT): {[facility] Quick Recap - Optional:40461:::1} -continue home coreg 25 mg BID, furosemide [...] -consider sevelamer but will defer to outpt rangeland management specialist -avoid nephrotoxic agents, and dose meds renally -replete lytes PRN Assessment & Plan (09/24/2024 6:20 AM CDT): {[facility] Quick Recap - Optional:12726:::1} - pt missed PD 09/23 due to [...] Plan (09/24/2024 6:20 AM CDT): {[facility] Quick Recap - Optional:57336:::1} -continue home coreg 25 mg BID, furosemide [...] if vessel amenable to PCI Atherosclerosis of mesa grande ar teries of the extremities with ulceration [...] Plan (09/24/2024 6:20 AM CDT): {[facility] Quick Recap - Optional:81455:::1} -continue home coreg 25 mg BID, furosemide [...] Plan (09/24/2024 6:20 AM CDT): {[facility] Quick Recap - Optional:03081:::1} - home glargine 35 units daily with [...] were not included. Grace Interiano 1955 Referring Emu Farmer: Alan Mccall Dialysis Info: Type: PD--> HD-->PD Time: 01/17/2020 Blood Type: O NEG Body mass index is 37.54 kg/m . ALERTS: Dr. Mendoza following enhancing lesion noted to upper pole of the left kidney. IR biopsy confirming oncocytoma in 07/2020. Dock Attendant: Nadia Stock MD ESRD r/t DM2 and HTN Past Medical History: Diagnosis Date Arthropathy Dr Strickland manages. 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 CKD (chronic kidney disease), stage V (HCC) Community acquired pneumonia 2018 [facility] hospitalized. Diabetes mellitus (HCC) 20 years. [facility]. Dock Attendant Dr. Davis at [place]. 03/26/21 last seen. Esophageal reflux takes med ESRD (end stage renal disease) (HCC) on PD as of 11/10/20 ESRD on peritoneal dialysis (HCC) Hypercholesteremia 5-10 yrs meds Hypertension 40's takes meds. Hypothyroidism meds 20 years Kidney stones 5-6 years ago had 2 in the same year. No urologist. Malignancy (HCC) right kidney 2012 Obstructive sleep apnea [address] Sergey Guevara [facility] remember doctors name SHABNAM on CPAP Renal cell carcinoma (HCC) [address] [place] Pruett surgeon. followed up every 6 [...] recently was assessed by his PCP at [facility] who performed short blessed [...] the presence of Richard Cornelius MD, (residential treatment counselor). > Interpreting Provider: Raymundo Hanson MD on [...] CL TI [chronic limb threatening ischemia] # [place] class V # Peripheral artery disease -I [...] RTC In 2 to 3 weeks at [facility] (as per patient and family's request) All [...] of the time was also spent in rzsp-lm-mlle interaction with the patient as well as formulating a plan for management. Thank you for allowing us to participate in the care of your patient and please do not hesitate to reach out to us if any questions or concerns. Yanna Goodman MD MPH Peripheral Angiogram: 08/18/2024 (PAD - L LE peripheral angiogram/ DIORAMA MODEL MAKER/stenting) Conclusion Left leg angiogram showed left AT severe diffuse disease with multiple subtotal occlusion and left PT severe diffuse disease with FILM PROCESS OPERATOR of distal PT without clear reconstitution. Successful [...] of Plavix. -recommend close follow up with head grease maker and follow up with me in clinic [...] 0.018 CXI microcatheter with multiple wires(Command 18/command 14/Child Day Care Teacher 200) to get to great toe branch of dorsalis pedis using airplane pilot [address]. - the AT-DP lesion was dilated with balloons mentioned in figure. - We turn our attention to PT. We crossed the PT FILM PROCESS OPERATOR with 0.018 CXI microcatheter with multiple wires (command 18, command 14, Child Day Care Teacher 200) and able to go to lateral [...] using angiography. Left Posterior Tibial Ost L DIORAMA MODEL MAKER to Dist L DIORAMA MODEL MAKER lesion is 100% stenosed. Stenosis was measured using angiography. Intervention Ost L ROSETTA to Dist L ROSETTA lesion Angioplasty Angioplasty independent of stent deployment was performed using a standard balloon. The balloon used was Cath Soliant Energyn Emrg Mr Wh 1.5Mm 144Cm 15Mm 2. Angioplasty Angioplasty prior to stent deployment was performed using a standard balloon. The balloon used was LegalGurun Dil Nanocross Elt 2-1.5Mm 150. Angioplasty Angioplasty [...] 10% residual stenosis post intervention. Ost L DIORAMA MODEL MAKER to Dist L DIORAMA MODEL MAKER lesion Angioplasty Angioplasty independent of stent deployment [...] 2 diabetes, hyperlipidemia, hypertension was referred to [facility] for nonhealing left great toe ulcer after [...] CL TI [chronic limb threatening ischemia] # [place] class V # Peripheral artery disease -I [...] of the time was also spent in pchk-jl-jbwh interaction with the patient as well as [...] or MRA given ESRD 4. Atherosclerosis of mesa grande coronary artery of mesa grande heart without angina pectoris 5. Hypertriglyceridemia -H/o PCI to mLAD in 07/2020, NM stress negative for ischemia in 10/2022 -Aspirin 81 mg daily, atorvastatin 80 mg daily, fenofibrate 145 mg daily -CMP, fasting lipid panel, and A1c 6. Type 2 diabetes mellitus with other specified complication, unspecified whether correction insulin use (HCC) -A1c 6.4% in 03/2023, [...] right eye and seeing ophthalmology for this. [id number] Gabe-Abida DP, Nikunj L, Nba J, Abner [...] opinion statement. Am J Transplant. 2020;21(2):460-474. doi: 10.1111/ajt.68985. Epub 2019Dec 09. PMID: [id number]. Urology: 08/04/2024 Attestation signed by Thomas Mendoza [...] CK7 and BerEP4. If this biopsy is advertising representative of the entire lesion, it would [...] Krystal Abel RN Sent: 03/28/2022 2:07 PM SERVICE COORDINATOR To: Martinez Sandhu MD, * Papito. I [...] in Nov. Thank you Krystal Abel RN [facility] Box Covering Machine Operator [phone] endoscopic resection of a sellar mass: 11/22/2021 [...] a formal visual hay exam with his senior grant writer. We reviewed the surgical pathology report. He may restart his baby aspirin. At this time, I recommend a follow up MRI pituitary protocol in 3- 6 months with a visit with me after imaging and patient is agreeable. Strict return precautions were reviewed. ICE COORDINATOR Pertinent Previous Committee Presentations: 10/14/2024 Committee Review [...] (higher cognitive impairment) done at outside hospital. [facility] Neuro notes sxs consistent with mild cognitive impairment. Reviewed brain MRI and CT reports. Discussed [facility] MRI report noting diffuse cerebral volume loss, slightly more than expected. Also reviewed PVD and cardiac history. Per team, no longer a candidate for transplant d/t multiple comorbidities. 07/01/2024 Committee Review Decision: Remain Inactive Committee Discussion Details: Reviewed calcifications on CT. CT reviewed at [facility] 06/24/[address] Flores. He deferred decision asking for review by additional surgeons. CT reviewed today with Dr Davenport and Dr Lane. Calcifications doable. Pt to remain listed for transplant (inactive pending additional work up). 12/19/2022 Committee Review Decision: Make Inactive Committee Discussion Details: Pt was presented at [facility] to make inactive on the [...] mg/kg Committee Discussion Details: Pt brought to [facility] to discuss possible listing. -Reviewed [...] -Follow up imaging was previously discussed at [facility] on 03/28/2022 and again today. Radiology unable to rule out cancer on imaging. Team decision after [facility] 03/28/2022 was to have pt [...] 03/28/2022: Committee Discussion Details: Pt brought to [facility] to review recent CT imaging [...] 09/27/2021: Committee Discussion Details: Pt brought to [facility] due to Pituitary tumor. -Reviewed [...] 08/10/2020: Committee Discussion Details: Pt brought to [facility] to discuss recent PCI to [...] left ventricular ejection fraction of 54%. [facility]: 07/21/2024 Conclusion 2-vessel CAD with prior diagonal [...] 6Fr 1.25Mm Diamondback catheter and using a ClearFlow [facility] Diamondback 360 Viperwire Adv wire. 2 [...] a 0% residual stenosis post intervention. [facility]: 08/04/2020 HEMODYNAMIC FINDINGS: LVEDP 18 mmmHg ANGIOGRAPHY: [...] ANTICOAGULATION DURING PCI: Heparin INTERVENTIONAL WIRE: A LendingStandard wireless pressure wire was advanced beyond the [...] Dictated by Lalit Muñoz DO (residential treatment counselor). MRI Abd wwo: 08/04/2024 Findings: Lower Chest: [...] 08/02/2020. 2.Peritoneal dialysis catheter in the pelvis. Efogg-zt-lbayvpvq volume ascites throughout the abdomen and pelvis, [...] Impression: It is the impression of this dialysis social worker that Grace Johana Meseret has [...] to be the back up caregiver. Plan: break up worker to provide supportive services as needed. Patient remains a reasonable candidate for transplant from a psychosocial perspective. Psychiatric Consult Recommended: No Transplant Certified Professional Ergonomist: Malinda Escamilla, STACKER, HOSPITALITY HOUSE SUPERVISOR Abdominal Transplant Certified Professional Ergonomist [phone] Transplant Caregiver Confirmation Note Caregiver Confirmation Date Primary Name of Primary: Harriet Interiano Relationship: spouse - Confirmed during initial assessment 01/14/2022 - DIORAMA MODEL MAKER form received on 01/14/2022 - Secondary Name [...] Description 11/02/2024 1:45 PM CDT Office Visit [facility] - Vascular Surgery [address] [place] [address] Elroy Holcomb MD PAD (peripheral artery disease) (Primary Dx); Amputation of left great toe 11/02/2024 Travel 10/28/2024 12:27 PM CDT - 10/28/2024 1:05 PM CDT Emergency [facility] EMERGENCY DEPARTMENT [address] [place] [address] Chest pain, unspecified type Discharge Disposition: Left Against Medical Advice/Discontinued Care 10/28/2024 1:55 AM CDT - 10/28/2024 5:16 AM CDT Emergency [facility] EMERGENCY DEPARTMENT [address] [place] [address] Charmaine Khalil MD Chest pain, unspecified type; Abdominal distension; Atypical chest pain; History of coronary angioplasty with insertion of stent; ESRD (end stage renal disease) on dialysis (HCC); PAD (peripheral artery disease) Discharge Disposition: Left Against Medical Advice/Discontinued Care 10/27/2024 1:30 AM CDT - 10/27/2024 11:59 PM CDT Hospital Encounter [facility] MAIN LAB [address] [place] [address] Discharge Disposition: Home or Self Care 10/27/2024 Travel 10/26/2024 2:00 PM CDT Office Visit [facility] - Vascular Surgery [address] [place] [address] Elroy Holcomb MD PAD (peripheral artery disease) (Primary Dx) 10/26/2024 Travel 10/25/2024 Telephone [facility] - Vascular Surgery [address] [place] [address] Elroy Hoclomb MD Pain; Appointment 10/21/2024 12:14 PM CDT - 10/21/2024 11:59 PM CDT Hospital Encounter [facility] LAB OP DRAW STATION [address] [place] [address] Discharge Disposition: Home or Self Care 10/21/2024 10:40 AM CDT Office Visit [facility] - Neurology [address] [place] [phone] Becky Wilson MD Confusion (Primary Dx); Memory loss 10/21/2024 Telephone [facility] - Neurology [address] [place] [address] Becky Wlison MD Record Request 10/21/2024 Travel 10/19/2024 4:33 PM CDT - 10/19/2024 6:50 PM CDT Emergency [facility] EMERGENCY DEPARTMENT [address] [place] [address] Kalani Braswell MD Medication side effect (Primary Dx); Lightheadedness; Acute nonintractable headache, unspecified headache type; At risk for polypharmacy; Hypokalemia Discharge Disposition: Home or Self Care 10/19/2024 1:00 PM CDT Office Visit [facility] - Vascular Surgery [address] [place] [phone] Elroy Holcomb MD 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) (Primary Dx); PAD (peripheral artery disease) 10/19/2024 Travel 10/17/2024 9:19 PM CDT - 10/17/2024 9:53 PM CDT Emergency [facility] EMERGENCY DEPARTMENT [address] [place] [address] Other chest pain (Primary Dx) Discharge Disposition: Left Against Medical Advice/Discontinued Care 10/17/2024 Travel 10/14/2024 Telephone [facility] TRANSPLANT [address] [place] [phone] Savanna Edwards RN Kidney Transplant Evaluation 10/13/2024 1:00 PM CDT Office Visit [facility] - Cardiology [address] [facility] [address] [place] [phone] Maylin Cutler DO Memory loss (Primary Dx); Chronic diastolic heart failure (HCC); Resistant hypertension; ESRD on PD; Abnormal stress test; Coronary artery disease involving mesa grande coronary artery of mesa grande heart without angina pectoris; Hypertriglyceridemia; Type 2 diabetes mellitus with other specified complication, with long-term current use of insulin (HCC); PAD (peripheral artery disease) 10/13/2024 Travel 10/09/2024 5:15 PM CDT - 10/09/2024 10:17 PM CDT Emergency [facility] EMERGENCY DEPARTMENT [facility] [place] [address] Sukhwinder Wagner MD Short of breath on exertion; Memory loss Discharge Disposition: Home or Self Care 10/09/2024 Travel 10/07/2024 4:34 PM CDT - 10/07/2024 8:44 PM CDT Emergency [facility] EMERGENCY DEPARTMENT [address] [place] [address] Richard Sylvester MD Urinary tract infection associated with indwelling urethral catheter, initial encounter (Primary Dx); Headache, unspecified headache type; Hypotension, unspecified hypotension type Discharge Disposition: Home or Self Care 10/07/2024 Travel 10/05/2024 1:45 PM CDT Office Visit [facility] - Vascular Surgery [address] [facility] [place] [phone] Guy Messina MD Williams, Michael S, MD Amputation of left great toe (Primary Dx); PAD (peripheral artery disease) 10/05/2024 11:24 AM CDT - 10/05/2024 11:59 PM CDT Hospital Encounter [facility] VASCULAR US [address] [place] [address] Guy Messina MD Discharge Disposition: Home or Self Care 10/05/2024 Travel 10/04/2024 11:40 AM CDT Office Visit [facility] - Cardiology [address] [facility] [address] [place] [address] Hannah Goodman MD PAD (peripheral artery disease) (Primary Dx); Resistant hypertension; Chronic diastolic heart failure (HCC); Type 2 diabetes mellitus with other specified complication, with long-term current use of insulin (HCC) 10/04/2024 Travel 09/27/2024 Telephone [facility] - Endocrinology [address] [place] [phone] Niraj Turner MD Med Question 09/27/2024 Telephone [facility] - Endocrinology [address] [place] [address] Niraj Turner MD Appointment 09/24/2024 Results Follow-Up [facility] Early Admission Unit [address] [place] [address] Angel Crook MD 09/24/2024 Telephone [facility] - Endocrinology [address] [place] [address] Niraj Turner MD Appointment 09/23/2024 10:57 PM CDT - 09/25/2024 3:57 PM CDT Hospital Encounter [facility] Early Admission Unit [address] [place] [address] Jennifer Winn MD Morreale, Peter J III, MD Wheeler, Joseph R, MD Internal Medicine Discharge Disposition: Home or Self Care 09/23/2024 Travel 09/23/2024 Telephone [facility] - Cardiology [address] [facility] [address] [place] [address] Hannah Goodman MD Question 09/20/2024 Telephone [facility] - Endocrinology [address] [place] [phone] Niraj Turner MD Appointment 09/18/2024 3:46 PM CDT - 09/19/2024 12:11 AM CDT Emergency [facility] EMERGENCY DEPARTMENT [address] [place] [phone] Gricel Benedict MD Lightheadedness (Primary Dx); Transient hypotension; Generalized weakness Discharge Disposition: Home or Self Care 09/18/2024 Travel 09/17/2024 Telephone [facility] - Endocrinology [facility] [place] [address] Niraj Turner MD Appointment 09/17/2024 Telephone [facility] - Centralized Scheduling [address] [place] [address] Niraj Turner MD Appointment 09/17/2024 Telephone Transitional Care at [facility] [address] [place] [phone] Teressa Lopez, bank guard 09/14/2024 10:50 AM CDT - 09/14/2024 12:29 PM CDT Surgery [facility] RITO OP [address] [place] [address] Elroy Holcomb MD LEFT GREAT TOE AMPUTATION 09/14/2024 10:44 AM CDT Anesthesia Event [facility] RITO OP [address] [place] [address] Olu Taylor, Elroy Costa CAA 09/12/2024 10:15 PM CDT - 09/16/2024 5:41 PM CDT Hospital Encounter [facility] SHORT STAY UNIT [address] [place] [address] Yuriy Lopez MD Morreale, Peter J III, MD Fazeel, Hafiz Muhammad, MD Emergency Medicine Discharge Disposition: Home Health Care [facility] 09/12/2024 Travel 09/10/2024 Telephone [facility] - Centralized Scheduling [address] [place] [phone] Niraj Turner MD 09/09/2024 Transitional Care [facility] CARE COORDINATION [address] [place] [phone] Alseia Bush RN Transitions Of Care 09/03/2024 9:47 PM CDT - 09/08/2024 3:08 PM CDT Hospital Encounter [facility] 6S ACUTE [address] [place] [phone] Charmaine Khalil MD Hoque, Farzana, MD Smutz, Kellen J, Allen Tapia MD Syed, Ceazr Gauthier MD Emergency Medicine Discharge Disposition: Home or Self Care 09/03/2024 Travel 09/03/2024 Telephone [facility] - Cardiac Rehab [address] [place] [address] Aracely Tracy, print color operator (States has discussed with pt and would like to schedule cardiac rehab. Discussed pt health, pt's expresses concern re: overall health, leg weakness. Pt is ambulatory. Discussed options with and encouraged to schedule appt with PCP and also to speak with brusher machine. She and pt do not want to delay starting cardiac rehab. ) 09/03/2024 Telephone [facility] - Cardiology [address] [facility], [facility] [address] [place] [address] Hannah Goodman MD Post-Op 09/02/2024 Telephone [facility] - Cardiac Rehab [address] [place] [phone] Aracely Tracy, print color operator 09/01/2024 10:50 AM CDT - 09/01/2024 12:36 PM CDT Surgery [facility] - Cardiac Cda Teacher [address] [place] [phone] Vanessa Medina MD Temporary Pacemaker Insertion 09/01/2024 8:28 AM CDT - 09/01/2024 5:55 PM CDT Hospital Encounter [facility] RITO OP [address] [place] [address] Vanessa Medina MD Cardiac Catheterization Discharge Disposition: Home or Self Care 09/01/2024 Travel 08/30/2024 10:00 AM CDT Office Visit [facility] - Cardiology [address] [facility], [address] [address] Hannah Goodman MD PAD (peripheral artery disease) (Primary Dx); Arterial leg ulcer (HCC); ESRD on PD 08/21/2024 Refill [facility] - Cardiology [address] [facility], [address] [address] Letha Christine APRN-ORCHID HAND Refill Request 08/18/2024 10:05 AM CDT - 08/18/2024 12:13 PM CDT Surgery [facility] - Cardiac Cda Teacher [address] [place] [address] Hannah Goodman MD Angiogram - Peripheral 08/18/2024 9:14 AM CDT - 08/19/2024 3:26 PM CDT Hospital Encounter [facility] SHORT STAY UNIT [address] [place] [address] Hannah Goodman MD Cardiac Catheterization Discharge Disposition: Home or Self Care 08/09/2024 1:40 PM CDT Office Visit [facility] - Cardiology [address] [facility], [address] [address] Hannah Goodman MD 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) (Primary Dx); Resistant hypertension 08/09/2024 Orders Only [facility] - Cardiology [address] [facility], [address] [address] Brandi Sosa RN 08/09/2024 Travel 08/04/2024 1:30 PM CDT Office Visit [facility] - Urology [address] [place] [address] Thomas Mendoza MD Left renal mass (Primary Dx) 08/04/2024 11:19 AM CDT - 08/04/2024 11:59 PM CDT Hospital Encounter [facility] MRI [address] [place] [address] Thomas Mendoza MD Discharge Disposition: Home or Self Care 08/04/2024 Orders Only [facility] PHYS SURGERY [address] [place] [address] Joshua Rebolledo MD History of renal cell carcinoma 08/04/2024 Travel from Last 3 Months Immunizations Immunization Administration Dates Next Due [employer] primary monoval ent 12+ yr 0.3mL Purple [...] Recorded Patient Health Questionnaire-2 Score 6 10/05/2024 [facility] - Occupational Stress [...] any time in the past 12 m [facility], were you homeless or living in a residential (including now)? No 09/24/2024 Sex and Gender Information Value Date Recorded Sex Assigned at Male 07/02/2021 2:37 PM CDT Legal Sex Male 10:14 PM SERVICE COORDINATOR Gender Identity Male 07/02/2021 2:37 PM [...] Description 12/06/2024 10:40 AM CDT Office Visit [facility] - Endocrinology [address] [facility] [place] [address] Marbin Flores MD [address] [facility] DIV [place] [address] Niraj Turner MD [address] [facility] [address] [place] [address] Health Maintenance Due Date Last Done Comments [...] this topic Medical Devices Implanted Type Area Carpet Repairer Device Identifier Shelf Expiration Date Model / Serial / Lot Sys Cor Stent Xience Srr 3mm 18mm Rap Ex Implanted:Qty: 1 on 08/04/2020 by Javier Lan MD at [facility] Stent Coronary [employer] 06/19/2022 [id number] Description:STENT Sys Cor Stent Xience Srr 3mm 8mm Rap Ex Implanted:Qty: 1 on 08/04/2020 by Javier Lan MD at [facility] Stent Coronary [employer] 09/03/2021 [id number] Description:stent Sys Cor Stent Sng Xd Monrl 3.5mm 48mm - [id number] Implanted:Qty: 1 on 08/18/2024 by Hannah Goodman MD at [facility] [employer] Scimed [id number] 09/07/2025 [id number] / [id number] / [id number] Sys Cor Stent Sng Xd Mr 4mm 24mm Dlv Sys - [id number] Implanted:Qty: 1 on 09/01/2024 by Vanessa Medina MD at [facility] [employer] Raji [id number] 10/19/2025 [id number] / [id number] / [id number] Explanted Type Area Carpet Repairer Device Identifier Shelf Expiration Date Model / Serial / Lot Cath Pace Eltrd Biplr Dist Tip Balln Flw - [id number] Explanted:Qty: 1 on 09/01/2024 at [facility] [employer] [id number] 12/17/2025 [id number] / [id number] / [id number] Procedures Procedure Name Priority Date/Time Associated Diagnosis [...] 12:24 PM CDT Coronary artery disease involving mesa grande heart with angina pectoris, unspecified vessel or [...] BLOCK Routine 09/14/2024 10:3 8 AM CDT MA AMPUTATION METATARSAL+TOE,SINGLE 09/14/2024 10:23 AM CDT Toe [...] unspecified vessel or lesion type, unspecified whether mesa grande or transplanted heart CCL TEMPORARY PACEMAKER INSERTION Routine 09/01/2024 2:18 PM CDT Abnormal stress test Dyspnea on exertion Pre-kidney transplant, listed Coronary artery disease with angina pectoris, unspecified vessel or lesion type, unspecified whether mesa grande or transplanted heart Abnormal findings on cardiac catheterization CCL CORONARY ATHERECTOMY Routine 09/01/2024 2:18 PM CDT Abnormal stress test Dyspnea on exertion Pre-kidney transplant, listed Coronary artery disease with angina pectoris, unspecified vessel or lesion type, unspecified whether mesa grande or transplanted heart Abnormal findings on cardiac catheterization CCL CORONARY IVUS Routine 09/01/2024 2:1 8 PM CDT Abnormal stress test Dyspnea on exertion Pre-kidney transplant, listed Coronary artery disease with angina pectoris, unspecified vessel or lesion type, unspecified whether mesa grande or transplanted heart Abnormal findings on cardiac catheterization CCL STAGED PERC CORONARY INTERVENTION Routine 09/01/2024 2:18 PM CDT Abnormal stress test Dyspnea on exertion Pre-kidney transplant, listed Coronary artery disease with angina pectoris, unspecified vessel or lesion type, unspecified whether mesa grande or transplanted heart Abnormal findings on cardiac catheterization GLUCOSE - POINT OF CARE Routine 09/01/2024 10:00 AM CDT CBC W/O DIFFERENTIAL ANDIE 09/01/2024 9:57 AM CDT Coronary artery disease with angina pectoris, unspecified vessel or lesion type, unspecified whether mesa grande or transplanted heart Abnormal findings on cardiac catheterization BASIC METABOLIC PANEL (CALCIUM TOTAL) ANDIE 09/01/2024 9:57 AM CDT Coronary artery disease with angina pectoris, unspecified vessel or lesion type, unspecified whether mesa grande or transplanted heart Abnormal findings on cardiac [...] Routine 08/18/2024 2:33 PM CDT 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) ACT LR - POCT ([facility]) Routine 08/18/2024 2:08 PM CDT ACT LR - POCT ([facility]) Routine 08/18/2024 1:24 PM CDT ACT LR - POCT ([facility]) Routine 08/18/2024 12:57 PM CDT ACT LR - POCT ([facility]) Routine 08/18/2024 12:13 PM CDT ANGIOPLASTY PERIPHERAL ARTERY 08/18/2024 10:49 AM CDT 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) GLUCOSE - POINT OF CARE Routine 08/18/2024 10:15 AM CDT BASIC METABOLIC PANEL (CALCIUM TOTAL) ANDIE 08/18/2024 10:11 AM CDT 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 Baseline to 1 hour specimen collection interval exceeded. Blood BLOOD SPECIMEN / Unknown Venipuncture / Unknown 10/28/2024 2:31 AM CDT 10/28/2024 2:37 AM CDT Savanna Mcfarlane MD LAB - CHEMISTRY ORDERABLES nal Result [address] [address], [place] [phone] * LACTIC ACID BLOOD REFLEX TO REPEAT (10/28/2024 2:31 AM CDT) Only the most recent of5 resultswithin the time period is included. Lactic Acid-Stat 1.9 <=2.0 mmol/L 10/28/2024 3:06 AM CDT [facility] Blood BLOOD SPECIMEN / Unknown Venipuncture / Unknown 10/28/2024 2:31 AM CDT 10/28/2024 2:37 AM CDT Savanna Mcfarlane MD LAB - CHEMISTRY ORDERABLES nal Result [address] [address], [place] [phone] * XR Chest 2Vw (10/27/2024 11:58 PM CDT) Only the most recent of4 resultswithin the time period is included. Anatomical Region Laterality Modality Chest Digital Radiogra phy 10/28/2024 12:0 2 AM CDT Narrative 10/28/2024 3:32 AM CDT PROCEDURE: XR CHEST 2VW, DATE/TIME OF EXAM: 10/27/2024 11:58 PM, LOCATION [facility] INDICATION: R07.9: Chest pain, unspecified type [...] > Dictated by Branden Jha MD, (residential treatment counselor). > Dictated by Senior Billing Consultant I, Blake Plasencia MD have personally reviewed and interpreted this examination/study. > Interpreting Provider: Blake Plasencia MD on 10/28/2024 3:32 AM Procedure Note Blake Plasencia MD - 10/28/2024 PROCEDURE: XR CHEST 2VW, DATE/TIME OF EXAM: 10/27/2024 11:58 PM, LOCATION [facility] INDICATION: R07.9: Chest pain, unspecified type [...] > Dictated by Branden Jha MD, (residential treatment counselor). > Dictated by Senior Billing Consultant I, Blake Plasencia MD have personally reviewed and interpreted this examination/study. > Interpreting Provider: Blake Plasencia MD on 10/28/2024 3:32 AM Savanna Mcfarlane MD DIAGNOSTIC IMAGING ORDERABLES Final Result * (ABNORMAL) TROPONIN-I HIGH SENSITIVE BASELINE + 1HR (10/27/2024 11:53 PM CDT) Only the most recent of8 resultswithin the time period is included. [facility] Troponin I High Sensitive 72(H) <=35 ng/L 10/28/2024 12:49 AM [facility] Blood BLOOD SPECIMEN / Unknown Venipuncture / Unknown 10/27/2024 11:53 PM CDT 10/28/2024 12:12 AM CDT us Savanna Mcfarlane MD LAB - CHEMISTRY ORDERABLES Replaced by [facility] Result [facility] [address] [place] [address], [facility] [phone] * (ABNORMAL) CBC W AUTO DIFFERENTIAL (10/27/2024 11:53 PM CDT) Only the most recent of11 resultswithin the time period is included. [facility] WBC 7.8 4.0 - 10.7 x10E9/L 10/28/2024 12:26 AM [facility] RBC Count 3.31(L) 4.30 - 5.80 x10E12/L 10/28/2024 12:26 AM [facility] Hemoglobin 9.0(L) 13.3 - 17.5 g/dL 10/28/2024 12:26 AM [facility] Hematocrit 27.9(L) 38.7 - 51.1 % 10/28/2024 12:26 AM [facility] MCV 84.3 80.0 - 98.0 fL 10/28/2024 12:26 AM [facility] MCH 27.2 26.7 - 33.6 pg 10/28/2024 12:26 AM [facility] MCHC 32.3 31.7 - 36.3 g/dL 10/28/2024 12:26 AM [facility] RDW-CV 15.9(H) 11.3 - 14.8 % 10/28/2024 12:26 AM [facility] Platelet Count 187 150 - 420 x10E9/L 10/28/2024 12:26 AM [facility] MPV 10.2 7.8 - 11.4 fL 10/28/2024 12:26 AM [facility] Neutrophil % 67.0 41.0 - 74.0 % 10/28/2024 12:26 AM [facility] Lymphocyte % 16.4(L) 17.0 - 47.0 % 10/28/2024 12:26 AM [facility] Monocyte % 14.0(H) 3.0 - 11.0 % 10/28/2024 12:26 AM [facility] Eosinophil % 1.9 0.0 - 7.0 % 10/28/2024 12:26 AM [facility] Basophil % 0.1 0.0 - 1.6 % 10/28/2024 12:26 AM [facility] Immature Granulocytes % 0.6 0.0 - 1.0 % 10/28/2024 12:26 AM [facility] Neutrophil Absolute 5.23 1.60 - 7.50 x10E9/L 10/28/2024 12:26 AM [facility] Lymphocyte Absolute 1.28 1.00 - 4.40 x10E9/L 10/28/2024 12:26 AM [facility] Monocyte Absolute 1.09(H) 0.15 - 1.00 x10E9/L 10/28/2024 12:26 AM [facility] Eosinophil Absolute 0.15 0.00 - 0.60 x10E9/L 10/28/2024 12:26 AM [facility] Basophil Absolute 0.01 0.00 - 0.13 x10E9/L 10/28/2024 12:26 AM [facility] Blood BLOOD SPECIMEN / Unknown Venipuncture / Unknown 10/27/2024 11:53 PM CDT 10/28/2024 12:13 AM CDT us Savanna Mcfarlane MD LAB - HEMATOLOGY ORDERABLES F inal Result [facility] [address] [place] [address], [facility] [phone] * (ABNORMAL) COMPREHENSIVE METABOLIC PANEL (10/27/2024 11:53 PM CDT) Only the most recent of13 resultswithin the time period is included. BUN 34(H) 7 - 26 mg/dL 10/28/2024 12:45 AM [facility] Creatinine 7.86(H) 0.71 - 1.16 mg/dL 10/28/2024 12:45 AM [facility] Sodium 132(L) 136 - 145 mmol/L 10/28/2024 12:45 AM [facility] Potassium 3.5 3.5 - 4.5 mmol/L 10/28/2024 12:45 AM [facility] Chloride 95(L) 98 - 107 mmol/L 10/28/2024 12:45 AM [facility] CO2 25 22 - 29 mmol/L 10/28/2024 12:45 AM [facility] Glucose 104(H) 70 - 99 mg/dL 10/28/2024 12:45 AM [facility] Calcium 8.5 8.4 - 10.2 mg/dL 10/28/2024 12:45 AM [facility] Protein Total 5.6(L) 6.0 - 8.3 g/dL 10/28/2024 12:45 AM [facility] Albumin 2.2(L) 3.4 - 5.0 g/dL 10/28/2024 12:45 AM [facility] Bilirubin Total 0.3 0.2 - 1.2 mg/dL 10/28/2024 12:45 AM [facility] Alkaline Phosphatase 104 40 - 150 U/L 10/28/2024 12:45 AM [facility] ALT 56(H) 5 - 55 U/L 10/28/2024 12:45 AM [facility] AST 48(H) 5 - 34 U/L 10/28/2024 12:45 AM [facility] Anion Gap 12 6 - 16 10/28/2024 12:45 AM [facility] BUN/Creatinine Ratio 4(L) 7 - 23 10/28/2024 12:45 AM [facility] Osmolality Calculated 282 275 - 295 mOsm/kg 10/28/2024 12:45 AM CDT [facility] Albumin/Globulin Ratio 0.6(L) 1.1 - 2.3 10/28/2024 12:45 AM CDT [facility] eGFR by CKD-EPI 7(L) >=90 mL/min/1.7 3 m2 10/28/2024 12:45 AM CDT [facility] Comment:Estimated Glomerular Filtration Rate (eGFR) calculated using the CKD-EPI Creatinine Equation (2020), per the National Kidney Foundation and [place] [employer] Nephrology recommendations. Blood BLOOD SPECIMEN / Unknown Venipuncture / Unknown 10/27/2024 11:53 PM CDT 10/28/2024 12:12 AM CDT Savanna Mcfarlane MD LAB - CHEMISTRY ORDERABLES Fi nal Result Performing Organization Address [facility]/ZIP Co de Phone Number [address] [address], [place] [phone] * LIPASE BLOOD (10/27/2024 11:53 PM CDT) Only the most recent of3 resultswithin the time period is included. Lipase 41 8 - 78 U/L 10/28/2024 12:45 AM CDT [facility] Blood BLOOD SPECIMEN / Unknown Venipuncture / Unknown 10/27/2024 11:53 PM CDT 10/28/2024 12:12 AM CDT Narrative [facility] - 10/28/2024 12:45 AM CDT Lipase results from the Matthew Alinity analyzer may not be comparable with other methodologies. Savanna Mcfarlane MD LAB - CHEMISTRY ORDERABLES Fi nal Result Performing Organization Address [facility]/ZIP Co de Phone Number [address] [address], [place] [phone] * (ABNORMAL) PTH INTACT ([facility]) (10/21/2024 1:11 PM CDT) Only the most recent of2 resultswithin the time period is included. PTH Intact 316.8(H) 8.0 - 77.0 pg/mL 10/21/2024 1:56 PM CDT [facility] Blood BLOOD SPECIMEN / Unknown Lab Venipuncture / Unknown 10/21/2024 1:11 PM CDT 10/21/2024 1:23 PM CDT Result [facility] Becky Wilson MD LAB - CHEMISTRY ORDERABLES Fin al Result Performing Organization Address City/[facility]/ZIP Co de Phone Number [address] [address], [facility] [phone] * LAB MISC TEST (10/21/2024 1:11 PM CDT) Test Name PHOSPHO-TAU 217 PLASMA 10/25/2024 12:29 PM CDT [facility] Test Result See Scanned Report 10/25/2024 12:29 PM CDT [facility] Comment Ref Lab [place] 10/25/2024 12:29 PM CDT [facility] Blood BLOOD SPECIMEN / Unknown Lab Venipuncture / Unknown 10/21/2024 1:11 PM CDT 10/21/2024 1:15 PM CDT Result [facility] Becky Wilson MD LAB SEND OUT Final Result Performing Organization Address [facility] Co de Phone Number [facility] [address] [place] [address] * MAGNESIUM BLOOD (10/21/2024 1:11 PM CDT) Only the most recent of14 resultswithin the time period is included. Magnesium 1.6 1.6 - 2.6 mg/dL 10/21/2024 1:49 PM CDT [facility] Blood BLOOD SPECIMEN / Unknown Lab Venipuncture / Unknown 10/21/2024 1:11 PM CDT 10/21/2024 1:20 PM CDT Result [facility] Becky Wilson MD LAB - CHEMISTRY ORDERABLES Fin al Result Performing Organization Address City/[facility]/ZIP Co de Phone Number [address] [address], [facility] [phone] * AMMONIA (10/21/2024 1:11 PM CDT) Ammonia 30 <=72 umol/L 10/21/2024 1:32 PM CDT [facility] Blood BLOOD SPECIMEN / Unknown Lab Venipuncture / Unknown 10/21/2024 1:11 PM CDT 10/21/2024 1:15 PM CDT Becky Wilson MD LAB - CHEMISTRY ORDERABLES [facility] al Result [facility] [address] [place] [address], [facility] [phone] * CT Head Wo Contrast (10/19/2024 3:03 PM CDT) Only the most recent of4 resultswithin the time period is included. Anatomical Region Laterality Modality Head Computed Tomogra phy 10/19/2024 3:11 PM CDT Impressions 10/19/2024 3:41 PM CDT IMPRESSION: 1.No acute intracranial hemorrhage, territorial infarct, or significant mass effect. Report dictated by Saroj Linda MD, MD (residential treatment counselor). > Dictated by Senior Billing Consultant I, Raymundo Hanson MD have personally reviewed [...] dictated by Saroj Linda MD, MD (residential treatment counselor). > Dictated by Senior Billing Consultant I, Raymundo Hanson MD have personally reviewed and interpreted this examination/study. > Interpreting Provider: Raymundo Hanson MD on 10/19/2024 3:41 PM Alfreda Smith PA-C CT ORDERABLES Final Result * EKG 12-LEAD (10/19/2024 2:21 PM CDT) Only the most recent of6 resultswithin the time period is included. Pathologist [facility] Ventricular Rate 64 BPM [facility] MUSE Atrial Rate 64 BPM [facility] MUSE P-R Interval 146 ms [facility] MUSE QRS Duration ms 96 ms [facility] MUSE Q-T Interval ms 494 ms [facility] MUSE QTC Calculation (Bezet) 509 ms [facility] MUSE Calculated P Trinity 69 degrees [facility] MUSE Calculated R Trinity -63 degrees [facility] MUSE Calculated T Trinity -90 degrees [facility] MUSE Interpretation EKG NORMAL SINUS RHYTHM LEFT ANTERIOR FASCICULAR BLOCK T WAVE ABNORMALITY, CONSIDER INFEROLATERAL ISCHEMIA PROLONGED QT ABNORMAL ECG . Confirmed by DOUG CAGLE MD ([id number]) on 10/23/2024 11:38:28 PM [facility] MUSE 10/19/2024 2:21 PM CDT 10/23/2024 11:38 PM CDT Alfreda Smith PA-C ECG ORDERABLES Edite d Result - Final [facility] MUSE * (ABNORMAL) B-TYPE NATRIURETIC PEPTIDE (10/17/2024 7:33 PM CDT) Only the most recent of3 resultswithin the time period is included. [facility] BNP 471(H) <100 pg/mL 10/17/2024 10:07 PM CDT [facility] Comment: A decision threshold of [...] Fi nal Result [facility] [address] [place] [address], [facility] [phone] * XR CHEST 1VW PORTABLE (10/09/2024 7:27 PM CDT) Only the most recent of2 resultswithin the time period is included. Anatomical Region Laterality Modality Chest Digital Radiogra phy 10/09/2024 10:4 9 PM CDT Narrative 10/10/2024 1:17 AM CDT PROCEDURE: XR CHEST 1VW PORTABLE, DATE/TIME OF EXAM: 10/09/2024 7:27 PM, LOCATION [facility] INDICATION: R06.02: Short of breath on exertion ADDITIONAL CLINICAL INFORMATION: Ordering Provider Reason For Exam: r/o effusion, pneumonia Technologist Note: Additional: COMPARISON: Chest x-ray from 10/07/2024. FINDINGS/IMPRESSION: There is no focal consolidation, pleural effusion, or pneumothorax.The cardiomediastinal silhouette is normal. No displaced fractures identified. Hardware projecting over thoracic spine. > Dictated by Otis Bocanegra MD (residential treatment counselor). > Dictated by Senior Billing Consultant I, Blake Plasencia MD have personally reviewed and interpreted this examination/study. > Interpreting Provider: Blake Plasencia MD on 10/10/2024 1:17 AM Procedure Note Blake Plasencia MD - 10/10/2024 PROCEDURE: XR CHEST 1VW PORTABLE, DATE/TIME OF EXAM: 10/09/2024 7:27PM, LOCATION [facility] INDICATION: R06.02: Short of breath on exertion ADDITIONAL CLINICAL INFORMATION: Ordering Provider Reason For Exam: r/o effusion, pneumonia Technologist Note: Additional: COMPARISON: Chest x-ray from 10/07/2024. FINDINGS/IMPRESSION: There is no focal consolidation, pleural effusion, or pneumothorax.The cardiomediastinal silhouette is normal. No displaced fracturesidentified. Hardware projecting over thoracic spine. > Dictated by Otis Bocanegra MD (residential treatment counselor). > Dictated by Senior Billing Consultant I, Blake Plasencia MD have personally reviewed and interpreted this examination/study. > Interpreting Provider: Blake Plasencia MD on 10/10/2024 1:17 AM us Anjali Avelar LICENSED MARINE ENGINEER-[employer]CH[employer] HAND DIAGNOSTIC IMAGING O RDERABLES Final Result * (ABNORMAL) BLOOD GASES ABBEY + COOX PANEL (10/09/2024 4:39 PM CDT) Only the most recent of2 resultswithin the time period is included. pH Venous 7.41 7.32 - 7.42 pH 10/09/2024 5:04 PM [facility] pO2 Venous 34(L) 35 - 40 mmHg 10/09/2024 5:04 PM [facility] pCO2 Venous 44 40 - 50 mmHg 10/09/2024 5:04 PM [facility] HCO3 Venous 27.9 20 - 30 mmol/L 10/09/2024 5:04 PM [facility] Base Excess Venous 2.9(H) -2.0 - 2.0 mmol/L 10/09/2024 5:04 PM [facility] Oxyhemoglobin Venous 56.8 % 09/18 5:04 PM [facility] Comment:A^Absorbance Error Deoxyhemoglobin (HHB) Venous % 42.6 % 10/09/2024 5:04 PM [facility] Comment:A^Absorbance Error Methemoglobin <0.8 0.0 - 2.0 % 10/09/2024 5:04 PM [facility] Comment:A^Absorbance Error Carboxyhemoglobin 0.6 0.0 - 2.0 % 2024 5:04 PM [facility] Comment:A^Absorbance Error O2 Content Venous 7.7 Interpret within clinical context ml/dL 10/09/2024 5:04 PM [facility] Hemoglobin by COOX 9.6(L) 12.0 - 17.6 g/dL 10/09/2024 5:04 PM [facility] Comment:A^Absorbance Error O2 Saturation Venous 57(L) >=70 % 09/18 5:04 PM CDT [facility] Comment:A^Absorbance Error FI O2 Mixed Venous 21.0 % 2024 5:04 PM CDT [facility] Blood BLOOD SPECIMEN / Unknown Venipuncture / Unknown 10/09/2024 4:39 PM CDT 10/09/2024 4:56 PM CDT Narrative [facility] - 10/09/2024 5:04 PM CDT Carboxyhemoglobin Normal Concentration: Non-smokers: 0-2%; Smokers: 0-9%; Toxic: >20% [facility]velar [facility] - BLOOD GASES OR DERABLES Final Result [address] [address], [place] [phone] * PHOSPHORUS BLOOD (10/09/2024 4:39 PM CDT) Only the most recent of8 resultswithin the time period is included. Phosphorus 4.9 2.8 - 5.1 mg/dL 10/09/2024 5:29 PM CDT [facility] Blood BLOOD SPECIMEN / Unknown Venipuncture / Unknown 10/09/2024 4:39 PM CDT 10/09/2024 4:58 PM CDT Anjali Avelar LICENSED MARINE [facility]INE[facility] - CHEMISTRY ORDE RABLES Final Result [address] [address], [place] [phone] * (ABNORMAL) GLUCOSE - POINT OF CARE (10/09/2024 4:26 PM CDT) Only the most recent of55 resultswithin the time period is included. Glucose WB/POC 115(H) 70 - 99 mg/dL 10/09/2024 4:30 PM CDT [facility] Specimen Type Arterial/C apillary 10/09/2024 4:30 PM [facility] Blood BLOOD SPECIMEN / Unknown 10/09/2024 4:26 PM CDT 10/09/2024 4:30 PM CDT us Provider Unknown LAB - POINT OF CARE ORDERABLES Final Result [facility] [address] [place] [address], [facility] [phone] * (ABNORMAL) URINALYSIS REFLEX MICROSCOPIC REFLEX CULTURE (10/07/2024 6:16 PM CDT) Color UA Yellow Yellow, Straw 10/07/2024 6:39 PM [facility] Clarity UA Ex. Turbid(A) Clear 10/07/2024 6:39 PM [facility] Glucose UA Normal Normal 10/07/2024 6:39 PM [facility] Bilirubin UA Negative Negative 10/07/2024 6:39 PM [facility] Ketone UA Negative Negative 10/07/2024 6:39 PM [facility] Specific Frakes UA 1.015 1.005 - 1.030 10/07/2024 6:39 PM [facility] Blood UA 3+(A) Negative 10/07/2024 6:39 PM [facility] pH UA 6.0 5.0 - 8.0 10/07/2024 6:39 PM [facility] Protein UA 2+(A) Negative 10/07/2024 6:39 PM [facility] Urobilinogen UA Normal Normal mg/dL 10/07/2024 6:39 PM [facility] Nitrite UA Negative Negative 10/07/2024 6:39 PM [facility] Leukocyte Esterase UA 500 MOLLY/uL(A) Negative 10/07/2024 6:39 PM [facility] RBC UA 51-100(A) 0 - 5 # /hpf 10/07/2024 6:39 PM [facility] WBC UA >100(A) 0 - 5 # /hpf 10/07/2024 6:39 PM [facility] Bacteria UA 2+(A) None Seen 10/07/2024 6:39 PM CDT [facility] Squamous Epithelial Cells None Seen 0 - 5 /hpf 10/07/2024 6:39 PM CDT [facility] Transitional Epithelial Cell UA 0-2(A) None Seen /HPF 10/07/2024 6:39 PM CDT [facility] Budding Yeast Moderate(A) None seen /hpf 10/07/2024 6:39 PM CDT [facility] Reflex Status Culture to follow 10/07/2024 6:39 PM CDT [facility] Urine URINE SPECIMEN OBTAINED VIA [facility]IN[facility] CATHETER / Unknown Collection / Unknown 10/07/2024 6:16 PM CDT 10/07/2024 6:19 PM CDT Narrative [facility] [facility] - 10/07/2024 6:39 PM CDT Richard Sylvester MD LAB - URINALYSIS ORDERABLES Kenna l Result Performing Organization Address City/State/[facility] Co de Phone Number [facility] [address] [place] [address], [facility] [phone] * (ABNORMAL) CULTURE URINE (10/07/2024 6:16 PM CDT) Culture Urine 50,000-100,000 CFU/mL Klebsiella pneumoniae(A) MUSHTAQ 10/09/2024 5:54 AM CDT [facility] MICROBIOLOGY Urine URINE SPECIMEN OBTAINED VIA [facility] CATHETER / Unknown Collection / Unknown 10/07/2024 6:16 PM CDT 10/07/2024 6:19 PM CDT [facility] MICROBIOLOGY - 10/09/2024 5:54 AM CDT [...] LAB - MICROBIOLOGY ORDERABLES Fi nal Result [facility]CRO[facility] [address] [place] [address], [facility] [phone] * VAS Arterial Multilevel Le (10/05/2024 12:24 PM CDT) Anatomical Region Laterality Modality Intravascular Ul trasound 10/05/2024 11:3 4 AM CDT Narrative Procedure Note Elroy Holcomb MD - 10/05/2024 Guy Messina MD VASCULAR LAB ORDERABLES Edit ed Result - Final * (ABNORMAL) HEMOGLOBIN A1C (09/25/2024 5:06 AM CDT) Hemoglobin A1c 5.8(H) <=5.6 % 09/25/2024 8:19 AM CDT [facility] Estimated Average Glucose 120 mg/dL 09/25/2024 8:19 AM CDT [facility] Comment: HbA1c Interpretation: Normal : < 5.7% Pre-diabetes: 5.7-6.4% Diabetes: Equal to or greater than 6.5% Test results diagnostic of diabetes should be repeated for confirmation. Treatment target values recommended by ADA and other clinical organizations should be used to evaluate metabolic control in patients. Reference: [place] [employer], Standards of Care in Diabetes [...] LAB - CHEMISTRY ORDERABLES F inal Result [address] [address], [facility] [phone] * (ABNORMAL) RENAL FUNCTION PANEL (09/24/2024 7:53 PM CDT) Only the most recent of3 resultswithin the time period is included. BUN 42(H) 7 - 26 mg/dL 09/24/2024 8:47 PM [facility] Creatinine 12.22(H) 0.71 - 1.16 mg/dL 09/24/2024 8:47 PM [facility] Sodium 136 136 - 145 mmol/L 09/24/2024 8:47 PM [facility] Potassium 3.9 3.5 - 4.5 mmol/L 09/24/2024 8:47 PM [facility] Chloride 97(L) 98 - 107 mmol/L 09/24/2024 8:47 PM [facility] CO2 24 22 - 29 mmol/L 09/24/2024 8:47 PM [facility] Glucose 93 70 - 99 mg/dL 09/24/2024 8:47 PM [facility] Albumin 1.8(L) 3.4 - 5.0 g/dL 09/24/2024 8:47 PM [facility] Calcium 8.4 8.4 - 10.2 mg/dL 09/24/2024 8:47 PM [facility] Phosphorus 7.0(H) 2.8 - 5.1 mg/dL 09/24/2024 8:47 PM [facility] Anion Gap 15 6 - 16 09/24/2024 8:47 PM [facility] BUN/Creatinine Ratio 3(L) 7 - 23 09/24/2024 8:47 PM [facility] Osmolality Calculated 292 275 - 295 mOsm/kg 09/24/2024 8:47 PM [facility] eGFR by CKD-EPI 4(L) >=90 mL/min/1.7 3 m2 09/24/2024 8:47 PM [facility] Comment:Estimated Glomerular Filtration Rate (eGFR) calculated using the CKD-EPI Creatinine Equation (2020), per the National Kidney Foundation and [place] Society of Nephrology recommendations. Blood BLOOD SPECIMEN / Unknown Lab Venipuncture / Unknown 09/24/2024 7:53 PM CDT 09/24/2024 8:15 PM CDT us Guy Messina MD LAB - CHEMISTRY ORDERABLES F inal Result [address] [address], [place] [phone] * TSH REFLEX FREE T4 (09/24/2024 12:02 PM CDT) TSH 1.567 0.350 - 4.940 uIU/mL 09/24/2024 12:57 PM CDT [facility] Blood BLOOD SPECIMEN / Unknown 09/24/2024 12:02 PM CDT 09/24/2024 12:18 PM CDT us Alexis Rodrigez III, MD LAB - CHEMISTRY ORDERAB LES Final Result [address] [address], [place] [phone] * (ABNORMAL) VITAMIN B1 (09/24/2024 12:02 PM CDT) Pathologist [facility] Vitamin B1 Whole Blood 205(H) 70 - 180 nmol/L 09/27/2024 7:16 PM CDT [facility] ([facility]) Comment: INTERPRETIVE INFORMATION: Vitamin B1, Whole Blood This assay measures the concentration of thiamine diphosphate (TDP), the primary active form of vitamin B1. Approximately 90 percent of vitamin B1 present in whole blood is TDP. Thiamine and thiamine monophosphate, which comprise the remaining 10 percent, are not measured. This test was developed and its performance characteristics determined by [employer]. It has not been cleared or approved by the US Food and Drug Administration. This test was performed in a CLIA certified laboratory and is intended for clinical purposes. Performed By: [facility] [address] [place] [address] Cut Out Operator: Mk Egan MD, PhD CLIA Number: [id number] Blood BLOOD SPECIMEN / Unknown 09/24/2024 12:02 PM CDT 09/24/2024 12:11 PM CDT Alexis Rodrigez III, MD LAB - CHEMISTRY ORDERAB LES Final Result Performing Organization Address City/[facility]/ZIP Co de Phone Number [facility]) [address] [place] [phone] [place] [address] * (ABNORMAL) VITAMIN B12 (09/24/2024 12:02 PM CDT) Pathologist [facility] Vitamin B12 1,151(H) 213 - 816 pg/mL 09/24/2024 12:57 PM CDT [facility] Blood BLOOD SPECIMEN / Unknown 09/24/2024 12:02 PM CDT 09/24/2024 12:18 PM CDT Alexis Rodrigez III, MD LAB - CHEMISTRY ORDERAB LES Final Result [address] [address], [facility] [phone] * (ABNORMAL) TROPONIN-I HIGH SENSITIVE (09/24/2024 5:08 AM CDT) Troponin I High Sensitive 83(H) <=35 ng/L 09/24/2024 6:10 AM CDT [facility] Blood BLOOD SPECIMEN / Unknown Lab Venipuncture / Unknown 09/24/2024 5:08 AM CDT 09/24/2024 5:28 AM CDT us Jennifer Winn MD LAB - CHEMISTRY ORDERABLES F inal Result [facility] [address] [place] [address], [facility] [phone] * CT Lumbar Spine Wo Contrast (09/23/2024 [...] Report dictated by Branden Jha MD (residential treatment counselor) 09/23/2024 5:45 PM. > Dictated by Senior Billing Consultant I, Jana Clark MD have personally reviewed and interpreted this examination/study. > Interpreting Provider: Jana Clark MD on 09/23/2024 6:29 PM Narrative 09/23/2024 6:29 PM CDT PROCEDURE: CT HEAD WO CONTRAST, CT LUMBAR SPINE WO CONTRAST, CT THORACIC SPINE WO CONTRAST, CT CERVICAL SPINE WO CONTRAST, DATE/TIME OF EXAM: 09/23/2024 5:32 PM, LOCATION [facility] INDICATION: W19.XXXA: Fall, initial encounter R41.82: Altered mental status, unspecified altered mental status type ADDITIONAL CLINICAL INFORMATION: Ordering Provider Reason For Exam: r/o bleed, fx (accession [id number]), r/o fx (accession [id number]), r/o fx (accession [id number]), r/o fx (accession [id number]) Technologist Note: None. Additional: 69 year old [...] DATE/TIME OF EXAM: 09/23/2024 5:32 PM, LOCATION [facility] INDICATION: W19.XXXA: Fall, initial encounter R41.82: Altered mental status, unspecified altered mental status type ADDITIONAL CLINICAL INFORMATION: Ordering Provider Reason For Exam: r/o bleed, fx (accession [id number]), r/o fx (accession [id number]), r/o fx (accession [id number]), r/o fx (accession [id number]) Technologist Note: None. Additional: 69 year old [...] Report dictated by Branden Jha MD (residential treatment counselor) 09/23/2024 5:45 PM. > Dictated by Senior Billing Consultant I, Jana Clark MD have personally reviewed [...] Report dictated by Branden Jha MD (residential treatment counselor) 09/23/2024 5:45 PM. > Dictated by Senior Billing Consultant I, Jana Clark MD have personally reviewed and interpreted this examination/study. > Interpreting Provider: Jana Clark MD on 09/23/2024 6:29 PM Narrative 09/23/2024 6:29 PM CDT PROCEDURE: CT HEAD WO CONTRAST, CT LUMBAR SPINE WO CONTRAST, CT THORACIC SPINE WO CONTRAST, CT CERVICAL SPINE WO CONTRAST, DATE/TIME OF EXAM: 09/23/2024 5:32 PM, LOCATION [facility] INDICATION: W19.XXXA: Fall, initial encounter R41.82: Altered mental status, unspecified altered mental status type ADDITIONAL CLINICAL INFORMATION: Ordering Provider Reason For Exam: r/o bleed, fx (accession [id number]), r/o fx (accession [id number]), r/o fx (accession [id number]), r/o fx (accession [id number]) Technologist Note: None. Additional: 69 year old [...] DATE/TIME OF EXAM: 09/23/2024 5:32 PM, LOCATION [facility] INDICATION: W19.XXXA: Fall, initial encounter R41.82: Altered mental status, unspecified altered mental status type ADDITIONAL CLINICAL INFORMATION: Ordering Provider Reason For Exam: r/o bleed, fx (accession [id number]), r/o fx (accession [id number]), r/o fx (accession [id number]), r/o fx (accession [id number]) Technologist Note: None. Additional: 69 year old [...] Report dictated by Branden Jha MD (residential treatment counselor) 09/23/2024 5:45 PM. > Dictated by Senior Billing Consultant Jana Leigh MD have personally reviewed and [...] Report dictated by Branden Jha MD (residential treatment counselor) 09/23/2024 5:45 PM. > Dictated by Senior Billing Consultant Jana Leigh MD have personally reviewed and interpreted this examination/study. > Interpreting Provider: Jana Clark MD on 09/23/2024 6:29 PM Narrative 09/23/2024 6:29 PM CDT PROCEDURE: CT HEAD WO CONTRAST, CT LUMBAR SPINE WO CONTRAST, CT THORACIC SPINE WO CONTRAST, CT CERVICAL SPINE WO CONTRAST, DATE/TIME OF EXAM: 09/23/2024 5:32 PM, LOCATION [facility] INDICATION: W19.XXXA: Fall, initial encounter R41.82: Altered mental status, unspecified altered mental status type ADDITIONAL CLINICAL INFORMATION: Ordering Provider Reason For Exam: r/o bleed, fx (accession [id number]), r/o fx (accession [id number]), r/o fx (accession [id number]), r/o fx (accession [id number]) Technologist Note: None. Additional: 69 year old [...] DATE/TIME OF EXAM: 09/23/2024 5:32 PM, LOCATION [facility] INDICATION: W19.XXXA: Fall, initial encounter R41.82: Altered mental status, unspecified altered mental status type ADDITIONAL CLINICAL INFORMATION: Ordering Provider Reason For Exam: r/o bleed, fx (accession [id number]), r/o fx (accession [id number]), r/o fx (accession [id number]), r/o fx (accession [id number]) Technologist Note: None. Additional: 69 year old [...] Report dictated by Branden Jha MD (residential treatment counselor) 09/23/2024 5:45 PM. > Dictated by Senior Billing Consultant I, Jana Clark MD have personally reviewed [...] Report dictated by Branden Jha MD, (residential treatment counselor). > Dictated by Senior Billing Consultant I, Nicole Bernabe MD have personally reviewed and interpreted this examination/study. > Interpreting Provider: Nicole Bernabe MD on 09/24/2024 9:17 AM Narrative 09/24/2024 9:17 AM CDT PROCEDURE: XR FOOT LEFT 3VW OR MORE, DATE/TIME OF EXAM: 09/23/2024 5:34 PM, LOCATION [facility] INDICATION: W19.XXXA: Fall, initial encounter ADDITIONAL [...] MORE, DATE/TIME OF EXAM: 09/23/2024 5:34PM, LOCATION [facility] INDICATION: W19.XXXA: Fall, initial encounter ADDITIONAL [...] Report dictated by Branden Jha MD, (residential treatment counselor). > Dictated by Senior Billing Consultant I, Nicole Bernabe MD have personally reviewed and interpreted this examination/study. > Interpreting Provider: Nicole Bernabe MD on 09/24/2024 9:17 AM Moon Lewis PA-C DIAGNOSTIC IMAGING ORDERABLES F inal Result * (ABNORMAL) C-REACTIVE PROTEIN (09/23/2024 4:52 PM CDT) Only the most recent of2 resultswithin the time period is included. C-Reactive Protein 1.6(H) <=0.5 mg/dL 09/23/2024 5:42 PM CDT [facility] Blood BLOOD SPECIMEN / Unknown Venipuncture / Unknown 09/23/2024 4:52 PM CDT 09/23/2024 4:56 PM CDT Moon Lewis PA-C LAB - CHEMISTRY ORDERABLES Kenna l Result Performing Organization Address City/[facility]/ZIP Co de Phone Number [address] [address], [facility] [phone] * (ABNORMAL) ERYTHROCYTE SEDIMENTATION RATE (09/23/2024 4:52 PM CDT) Only the most recent of2 resultswithin the time period is included. Erythrocyte Sedimentation Rate Westergren 116(H) 0 - 20 MM/HR 09/23/2024 5:21 PM CDT [facility] Blood BLOOD SPECIMEN / Unknown Venipuncture / Unknown 09/23/2024 4:52 PM CDT 09/23/2024 5:05 PM CDT Moon Lewis PA-C LAB - HEMATOLOGY ORDERABLES Fin al Result [address] [address], [facility] [phone] * (ABNORMAL) DIFFERENTIAL MANUAL (09/23/2024 4:52 PM CDT) Only the most recent of3 resultswithin the time period is included. Neutrophil % 78(H) 41 - 74 % 09/23/2024 5:33 PM CDT [facility] Lymphocyte % 10(L) 17 - 47 % 09/23/2024 5:33 PM CDT [facility] Monocyte % 10 3 - 11 % 09/23/2024 5:33 PM T [facility] Eosinophil % 1 0 - 7 % 09/23/2024 5:33 PM CDT [facility] Metamyelocyte % 1(H) 0% % 5:33 PM T [facility] Neutrophil Absolute 8.66(H) 1.60 - 7.50 x10E9/L 09/23/2024 5:33 PM CDT [facility] Lymphocyte Absolute 1.11 1.00 - 4.40 x10E9/L 09/23/2024 5:33 PM T [facility] Monocyte Absolute 1.11(H) 0.15 - 1.00 x10E9/L 09/23/2024 5:33 PM [facility] Eosinophil Absolute 0.11 0.00 - 0.60 x10E9/L 09/23/2024 5:33 PM [facility] RBC Morphology REVIEWED 09/23/2024 5:33 PM T [facility] Microcytosis MODERATE(A) (none) 09/23/2024 5:33 PM [facility] Blood BLOOD SPECIMEN / Unknown Venipuncture / Unknown 09/23/2024 4:52 PM CDT 09/23/2024 5:05 PM CDT us Moon Lewis PA-C LAB - HEMATOLOGY ORDERABLES Fin al Result [facility] [address] [place] [address], [facility] [phone] * (ABNORMAL) CBC W/O DIFFERENTIAL (09/16/2024 1:01 AM CDT) Only the most recent of10 resultswithin the time period is included. WBC 9.3 4.0 - 10.7 x10E9/L 09/16/2024 1:43 AM [facility] RBC Count 3.37(L) 4.30 - 5.80 x10E12/L 09/16/2024 1:43 AM [facility] Hemoglobin 9.5(L) 13.3 - 17.5 g/dL 09/16/2024 1:43 AM [facility] Hematocrit 28.3(L) 38.7 - 51.1 % 09/16/2024 1:43 AM [facility] MCV 84.0 80.0 - 98.0 fL 09/16/2024 1:43 AM [facility] MCH 28.2 26.7 - 33.6 pg 09/16/2024 1:43 AM [facility] MCHC 33.6 31.7 - 36.3 g/dL 09/16/2024 1:43 AM [facility] RDW-CV 15.7(H) 11.3 - 14.8 % 09/16/2024 1:43 AM [facility] Platelet Count 205 150 - 420 x10E9/L 09/16/2024 1:43 AM [facility] MPV 10.3 7.8 - 11.4 fL 09/16/2024 1:43 AM [facility] Blood BLOOD SPECIMEN / Unknown Lab Venipuncture / Unknown 09/16/2024 1:01 AM CDT 09/16/2024 1:40 AM CDT us Alexis Rodrigez III, MD LAB - HEMATOLOGY ORDERA BLES Final Result [facility] [address] [place] [address], [facility] [phone] * VANCOMYCIN LEVEL RANDOM (09/15/2024 4:10 PM CDT) Only the most recent of3 resultswithin the time period is included. Pathologist [facility] Vancomycin Random 31.2 Therapeutic Ranges not established for random specimens ug/mL 09/15/2024 6:00 PM CDT [facility] Blood BLOOD SPECIMEN / Unknown Lab Venipuncture / Unknown 09/15/2024 4:10 PM CDT 09/15/2024 4:51 PM CDT Narrative [facility] - 09/15/2024 6:00 PM CDT See institution protocol. us Aureliano Pierce MD LAB - CHEMISTRY ORDERAB LES Final Result [address] [address], [place] [phone] * LACTIC ACID BLOOD (09/14/2024 3:32 PM CDT) Only the most recent of4 resultswithin the time period is included. [facility] Lactic Acid-Stat 2.0 <=2.0 mmol/L 09/14/2024 4:17 PM CDT [facility] Blood BLOOD SPECIMEN / Unknown Lab Venipuncture / Unknown 09/14/2024 3:32 PM CDT 09/14/2024 3:51 PM CDT us Alexis Rodrigez III, MD LAB - CHEMISTRY ORDERAB LES Final Result Performing Organization Address City/[facility]/ZIP Co de Phone Number [address] [address], [place] [phone] * (ABNORMAL) HGB HCT PANEL (09/14/2024 1:24 PM CDT) Only the most recent of2 resultswithin the time period is included. [facility] Hemoglobin 8.7(L) 13.3 - 17.5 g/dL 09/14/2024 1:41 PM CDT [facility] Hematocrit 25.6(L) 38.7 - 51.1 % 09/14/2024 1:41 PM CDT [facility] Blood BLOOD SPECIMEN / Unknown Venipuncture / Unknown 09/14/2024 1:24 PM CDT 09/14/2024 1:30 PM CDT us Alexis Rodrigez III, MD LAB - HEMATOLOGY ORDERA BLES Final Result [facility] [address] [place] [address], [facility] [phone] * PATHOLOGY TISSUE (09/14/2024 11:45 AM CDT) Case Report Surgical Pathology Report Case: [id number] Authorizing Provider: Elryo Holcomb MD Collected: 09/14/2024 11:45 AM Ordering Location: [facility] RITO OP Received: 09/14/2024 12:47 PM Pathologist: Charmaine Myrick MD Specimen: Toe, Left, Left Great Toe 09/16/2024 11:40 AM CDT [facility] Final Diagnosis Toe, left great, amputation (A): - Skin ulceration and necrosis - Acute osteomyelitis - Bone margin negative for acute inflammation - Skin and soft tissue margin appears viable 09/16/2024 11:40 AM CDT [facility] at 1140 CDT Microscopic Description and Comment Microscopic examination substantiates the diagnosis. 09/16/2024 11:40 AM CDT [facility] Clinical History The patient is a 69-year-old man with first toe dry gangrene and history of PAD. 09/16/2024 11:40 AM CDT [facility] Gross Description The requisition and [...] hemorrhage. There are no additional gross lesions. Palletizer sections are submitted as follows: A1-skin and soft tissue to resection margin, medial and dorsal surfaces A2-bony resection margin, decalcified A3-partial proximal cross-section with surrounding mummification, decalcified IKD 09/16/2024 11:40 AM CDT [facility] Pathologist Location at [facility] 09/16/2024 11:40 AM CDT [facility] Disclaimer The performance characteristics of all immunohistochemical and indirect immunofluorescence stains (if any) cited in this report were determined by the Histopathology [facility] of [facility]. Some of these tests were developed by [...] attending (teaching) pathologist. 09/16/2024 11:40 AM CDT [facility] Embedded Images 09/16/2024 11:40 AM CDT [facility] Amputation, Traumatic (Gross Only) (Toe, Left) 09/14/2024 11:45 AM CDT 09/14/2024 12:47 PM CDT Comment:Pre-op diagnosis: Toe gangrene (HCC) [I96] us Elroy Holcomb MD LAB - PATHOLOGY/CYTOLOGY O RDERABLES Final Result Performing Organization Address City/State/[facility] Co de Phone Number [facility] [address] [phone] * Peripheral Nerve Block (09/14/2024 10:38 AM [...] fungus isolated MUSHTAQ 10/11/2024 8:05 AM CDT [facility]CROBIOLOG[facility] Fungus Stain No yeast or hyphae seen 10/11/2024 8:05 AM CDT [facility]CRO[facility] Microbiology PERITONEAL DIALYSATE SPECIMEN / Unknown Collection / Unknown 09/13/2024 8:08 PM CDT 09/13/2024 8:10 PM CDT us Alexis Rodrigez III, MD LAB - MICROBIOLOGY PK ZENG Final Result [facility] [address] [place] [address], [facility] [phone] * DIFFERENTIAL MANUAL FLUID (09/13/2024 8:08 PM CDT) Fluid Source Peritoneal 09/13/2024 9:03 PM CDT [facility] Body Fluid Total Cell Count 100 x10E6/L 09/13/2024 9:03 PM CDT [facility] Neutrophils Fluid Percent 11 % 09/13/2024 9:03 PM CDT [facility] Lymphocytes Fluid Percent 6 % 09/13/2024 9:03 PM CDT [facility] Macrophages Fluid Percent 79 % 09/13/2024 9:03 PM CDT [facility] Mesothelial Cells Fluid Percent 4 % 09/13/2024 9:03 PM CDT [facility] Fluid PERITONEAL FLUID / Unknown Collection / Unknown 09/13/2024 8:08 PM CDT 09/13/2024 8:10 PM CDT Narrative [facility] - 09/13/2024 9:03 PM CDT No reference ranges established for body fluid differential cell counts. The test results must be integrated into the clinical context for interpretation. us Alexis Rodrigez III, MD LAB - BODY FLUID ORDERA BLES Final Result Performing Organization Address City/State/[facility] Co de Phone Number [address] [address], [facility] [phone] * CULTURE FLUID+GRAM STAIN (09/13/2024 8:08 PM CDT) Culture No growth MUSHTAQ 09/17/2024 12:38 AM CDT [facility] Gram Stain Light Polymorphonuclear cells 09/17/2024 12:38 AM CDT [facility] Gram Stain No organisms seen 025 12:38 AM CDT [facility] Other PERITONEAL DIALYSATE SPECIMEN / Unknown Collection / Unknown 09/13/2024 8:08 PM CDT 09/13/2024 8:10 PM CDT us Alexis Rodrigez III, MD LAB - MICROBIOLOGY PK ZENG Final Result Performing Organization Address City/[facility]/ZIP Co de Phone Number [facility] [address] [place] [address], [facility] [phone] * CULTURE ANAEROBE (09/13/2024 8:08 PM CDT) Culture No anaerobic organisms isolated MUSHTAQ 09/19/2024 8:26 AM CDT [facility]CRO[facility] Microbiology PERITONEAL DIALYSATE SPECIMEN / Unknown Collection / Unknown 09/13/2024 8:08 PM CDT 09/13/2024 8:11 PM CDT us Alexis Rodrigez III, MD LAB - MICROBIOLOGY PK ZENG Final Result Performing Organization Address [facility] Co de Phone Number [facility] [address] [place] [address], [facility] [phone] * CELL COUNT W DIFFERENTIAL FLUID (09/13/2024 8:08 PM CDT) Fluid Source Peritoneal 09/13/2024 9:03 PM CDT [facility] Fluid Appearance CLEAR 09/13/2024 9:03 PM CDT [facility] Fluid Color YELLOW 09/13/2024 9:03 PM CDT [facility] Total Nucleated Cells Fluid 279 Reference Range Not Established x10E6/L 09/13/2024 9:03 PM CDT [facility] RBC Count Fluid <2,000 Reference Range Not Established x10E6/L 09/13/2024 9:03 PM CDT [facility] Fluid PERITONEAL FLUID / Unknown Collection / Unknown 09/13/2024 8:08 PM CDT 09/13/2024 8:10 PM CDT Narrative [facility] - 09/13/2024 9:03 PM CDT No reference ranges established for body fluid cell counts. Any reference ranges provided are derived from published literature. The test results must be integrated into the clinical context for interpretation. us Alexis Rodrigez III, MD LAB - BODY FLUID ORDERA BLES Final Result Performing Organization Address City/[facility]/ZIP Co de Phone Number [facility] [address] [address], [facility] [phone] * VAS Bilateral Venous Duplex Le (09/13/2024 4:34 PM CDT) Anatomical Region Laterality Modality Lower Extremity Ultrasound 09/13/2024 4:18 PM CDT Narrative Procedure Note Lalit Castanon MD - 09/13/2024 us Alexis Rodrigez III, MD VASCULAR LAB ORDERABLES Edited Result - Final * SARS-COV-2 (COVID-19) RAPID (09/13/2024 6:02 AM CDT) COVID-19 PCR Not detected Not detected 09/14/19 6:36 AM CDT [facility] Microbiology SPECIMEN FROM NASOPHARYNGEAL STRUCTURE / Unknown Collection / Unknown 09/13/2024 6:02 AM CDT 09/13/2024 6:04 AM CDT Narrative [facility] - 09/13/2024 6:36 AM CDT The Cepheid [...] LAB - MICROBIOLOGY ORDERABLE S Final Result [facility] [address] [place] [address], [facility] [phone] * TRANSFUSE RED BLOOD CELL LEUKOREDUCED UNIT(S) [...] Dictated by Sera Chowdhury Dr, MD (residential treatment counselor). I, Terry Ramos MD have personally reviewed and interpreted this examination/study. > Interpreting Provider: Terry Ramos MD on 09/13/2024 9:42 AM Narrative 09/13/2024 9:42 AM CDT PROCEDURE: CT ANGIO AORTA FOR DISSECTION, DATE/TIME OF EXAM: 09/13/2024 12:28 AM, LOCATION [facility] INDICATION: R10.9: Abdominal pain, unspecified abdominal [...] DATE/TIME OF EXAM: 09/13/2024 12:28 AM, LOCATION [facility] INDICATION: R10.9: Abdominal pain, unspecified abdominal [...] Dictated by Sera Chowdhury Dr, MD (residential treatment counselor). I, Terry Ramos MD have personally reviewed and interpreted this examination/study. > Interpreting Provider: Terry Ramos MD on 09/13/2024 9:42 AM Yuriy Lopez MD CT ORDERABLES Final Result * PREPARE (CROSSMATCH) RBC UNIT(S), 1 Units (09/12/2024 11:30 PM CDT) Unit Description AS1 LR PRBC [facility] BLOOD BANK LAB Unit ABO O [facility] BLOOD [facility]ANK LAB Unit Rh NEG [facility] BLOOD BANK LAB Product Number [id number] [facility] B LOOD BANK LAB Unit Donor # [id number] [facility] BLOOD BANK LAB Unit Status transfused [facility] BLO OD BANK LAB Product Code [id number] [facility] BLO OD BANK LAB Blood Type Barcode 9500 [facility] BLOOD BANK LAB Expiration Date [id number] S BLOOD BANK LAB Blood Bank BLOOD SPECIMEN / Unknown 09/12/2024 11:30 PM CDT 09/12/2024 11:37 PM CDT Yuriy Lopez MD LAB - BLOOD BANK ORDERABLES Final Result Performing Organization Address City/[facility]/ZIP Co de Phone Number [facility] BLOOD BANK LAB [address] [place] [address], [place] [phone] * TYPE + SCREEN PANEL (09/12/2024 11:30 PM CDT) Antibody Screen NEG 12:16 AM CDT [facility] BLOOD BANK LAB ABO Rh O NEG 09/13/2024 12:16 AM CDT [facility] BLOOD BANK LAB Blood Bank BLOOD SPECIMEN / Unknown Venipuncture / Unknown 09/12/2024 11:30 PM CDT 09/12/2024 11:37 PM CDT Yuriy Lopez MD LAB - BLOOD BANK ORDERABLES Final Result Performing Organization Address [facility]/ZIP Co de Phone Number [facility] BLOOD BANK LAB [address] [place] [address], [place] [phone] * CULTURE BLOOD (09/12/2024 10:00 PM CDT) Only the most recent of4 resultswithin the time period is included. Culture No growth day 5 MUSHTAQ 09/18/2024 1:30 AM CDT [facility] MICROBIOLOGY Blood PERIPHERAL BLOOD / Unknown Venipuncture / Unknown 09/12/2024 10:00 PM CDT 09/12/2024 10:21 PM CDT Yuriy Lopez MD LAB - MICROBIOLOGY ORDERABLE S Final Result [facility] MICROBIOLOGY [address] [place] [address], [facility] [phone] * (ABNORMAL) BASIC METABOLIC PANEL (CALCIUM TOTAL) (09/08/2024 10:45 AM CDT) Only the most recent of6 resultswithin the time period is included. BUN 46(H) 7 - 26 mg/dL 09/08/2024 11:55 AM [facility] Creatinine 10.97(H) 0.71 - 1.16 mg/dL 09/08/2024 11:55 AM [facility] Sodium 142 136 - 145 mmol/L 09/08/2024 11:55 AM [facility] Potassium 4.4 3.5 - 4.5 mmol/L 09/08/2024 11:55 AM [facility] Chloride 104 98 - 107 mmol/L 09/08/2024 11:55 AM [facility] CO2 25 22 - 29 mmol/L 09/08/2024 11:55 AM [facility] Glucose 112(H) 70 - 99 mg/dL 09/08/2024 11:55 AM [facility] Calcium 8.9 8.4 - 10.2 mg/dL 09/08/2024 11:55 AM [facility] Anion Gap 13 6 - 16 09/08/2024 11:55 AM [facility] BUN/Creatinine Ratio 4(L) 7 - 23 09/08/2024 11:55 AM [facility] Osmolality Calculated 307(H) 275 - 295 mOsm/kg 09/08/2024 11:55 AM [facility] eGFR by CKD-EPI 5(L) >=90 mL/min/1.7 3 m2 09/08/2024 11:55 AM [facility] Comment:Estimated Glomerular Filtration Rate (eGFR) calculated using the CKD-EPI Creatinine Equation (2020), per the National Kidney Foundation and [place] Society of Nephrology recommendations. Blood BLOOD SPECIMEN / Unknown Lab Venipuncture / Unknown 09/08/2024 10:45 AM CDT 09/08/2024 11:26 AM T us Mellissa Freitas PA-C LAB - CHEMISTRY ORDERABLES Final Result [facility] [address] [place] [address], [facility] [phone] * VAS Bilateral Venous Mapping (09/07/2024 2:24 [...] thickening. Report dictated by Freddie Durham MD, (Senior Billing Consultant). I, Junior Hurley MD have personally reviewed [...] thickening. Report dictated by Freddie Durham MD, (Senior Billing Consultant). I, Junior Hurley MD have personally reviewed and interpreted this examination/study. > Interpreting Provider: Junior Hurley MD on 56:26 AM us Charmaine Khalil MD CT ORDERABLES Final Result * (ABNORMAL) POTASSIUM WHOLE BLD (09/01/2024 3:54 PM CDT) Potassium Whole Blood 3.1(L) 3.5 - 5.5 mmol/L 09/01/2024 4:05 PM CDT [facility]ORAT[facility] Blood WHOLE BLOOD SPECIMEN / Unknown Venipuncture / Unknown 09/01/2024 3:54 PM CDT 09/01/2024 3:57 PM CDT Jaqueline Crews LICENSED MARINE ENGINEER-ORCHID HAND LAB - CHEMISTRY ORDERABL ES Final Result [facility] [address] [place] [address], [facility] [phone] * CCL STAGED PERC CORONARY INTERVENTION, CCL [...] 1.25Mm Diamondback catheter and using a [facility] Diamondback 360 Viperwire Adv wire. [...] continuing DAPT Cardiology clinic f/u Jaqueline Crews LICENSED MARINE ENGINEER-ORCHID HAND CV CARDIAC CATH CUPID MA OCS Final Result * (ABNORMAL) IRON + TRANSFERRIN PANEL (08/19/2024 1:41 AM CDT) Iron 40(L) 50 - 175 ug/dL 08/19/2024 2:17 AM CDT [facility] Transferrin 116(L) 174 - 382 mg/dL 08/19/2024 2:17 AM CDT [facility] Transferrin Saturation % 28 16 - 50 % 08/19/2024 2:17 AM CDT [facility] TIBC Calculated 145(L) 240 - 450 ug/dL 08/19/2024 2:17 AM CDT [facility] Blood BLOOD SPECIMEN / Unknown Lab Venipuncture / Unknown 08/19/2024 1:41 AM CDT 08/19/2024 2:01 AM CDT Result [facility] Hannah Goodman MD LAB - CHEMISTRY ORDERABLES F inal Result [address] [address], [facility] [phone] * (ABNORMAL) FERRITIN (08/19/2024 1:41 AM CDT) Ferritin 560(H) 22 - 275 ng/mL 08/19/2024 2:35 AM CDT [facility] Blood BLOOD SPECIMEN / Unknown Lab Venipuncture / Unknown 08/19/2024 1:41 AM CDT 08/19/2024 2:01 AM CDT us Hannah Goodman MD LAB - CHEMISTRY ORDERABLES F inal Result Performing Organization Address [facility] Co de Phone Number [facility] [address] [place] [address], [place] [phone] * VITAMIN D 25-HYDROXY (08/19/2024 1:23 AM CDT) Vitamin D, 25 Hydroxy 36.2 30.0 - 80.0 ng/mL 08/19/2024 2:24 AM CDT [facility] Comment: The recommendations for 25-Hydroxy Vitamin D [...] ORDERABLES F inal Result Performing Organization Address [facility] Co de Phone Number [address] [address], [facility] [phone] * CCL PERIPHERAL ANGIOGRAM (08/18/2024 2:33 PM CDT) Anatomical Region Laterality Modality X-Ray Angiograph y Narrative 08/19/2024 2:24 PM CDT Left leg angiogram showed left AT severe diffuse disease with multiple subtotal occlusion and left PT severe diffuse disease with FILM PROCESS OPERATOR of distal PT without clear reconstitution. Successful [...] 0.018 CXI microcatheter with multiple wires(Command 18/command 14/Child Day Care Teacher 200) to get to great toe branch of dorsalis pedis using airplane pilot [address]. - the AT-DP lesion was dilated with balloons mentioned in figure. - We turn our attention to PT. We crossed the PT FILM PROCESS OPERATOR with 0.018 CXI microcatheter with multiple wires (command 18, command 14, Child Day Care Teacher 200) and able to go to lateral [...] using angiography. Left Posterior Tibial: Ost L DIORAMA MODEL MAKER to Dist L DIORAMA MODEL MAKER lesion is 100% stenosed. Stenosis was measured using angiography. Intervention Ost L ROSETTA to Dist L ROSETTA lesion: Angioplasty: Angioplasty independent of stent deployment was performed using a standard balloon. The balloon used was Cloudyn Emrg Mr Wh 1.5Mm 144Cm 15Mm 2. Angioplasty: Angioplasty prior to stent deployment was performed using a standard balloon. The balloon used was LegalGurun Dil Nanocross Elt 2-1.5Mm 150. Angioplasty: Angioplasty [...] 10% residual stenosis post intervention. Ost L DIORAMA MODEL MAKER to Dist L DIORAMA MODEL MAKER lesion: Angioplasty: Angioplasty independent of stent deployment [...] of Plavix. -recommend close follow up with head grease maker and follow up with me in clinic with JOSIANE/TBI. Hannah Goodman MD CV INVASIVE VASCULAR AND IR CUPID PROC Final Result * ACT LR - POCT ([facility]) (08/18/2024 2:08 PM CDT) Only the most recent of4 resultswithin the time period is included. ACT LR 231 See result comments sec 08/19/2024 9:02 AM CDT [facility] Blood BLOOD SPECIMEN / Unknown 08/18/2024 2:08 PM CDT 08/19/2024 9:02 AM CDT Narrative [facility] - 08/19/2024 9:02 AM CDT ACT-LR Therapeutics ranges are: Cardiac laboratory animal care veterinarian = 200-300 seconds Sheath pull = ACT [...] MD LAB - COAGULATION ORDERABLES Final Result [facility] [address] [place] [address], [facility] [phone] * MRI ABDOMEN WWO CONTRAST (08/04/2024 12:24 [...] Report dictated by Alan Cole MD (residential treatment counselor). ITerry MD have personally reviewed and interpreted [...] of the left kidney, not significantly changed, [id number] image 49, series 16 image 41. A [...] Report dictated by Alan Cole MD (residential treatment counselor). Terry Leigh MD have personally reviewed and interpreted this examination/study. > Interpreting Provider: Terry Ramos MD on 08/04/2024 6:23 PM Thomas Mendoza MD MR ORDERABLES Final Resu lt * HEPATITIS C ANTIBODY (06/16/2024 4:15 PM CDT) Hepatitis C Antibody Non-react sylvie Non-reac tive 06/16/2024 5:50 PM CDT [facility] Comment:Hepatitis C Antibody screen indicates no serologic [...] 4:15 PM CDT 06/16/2024 5:15 PM CDT lAan Davenport MD LAB - CHEMISTRY ORDERABLES nal Result [facility] [address] [place] [address], [facility] [phone] from Last 3 Months or Most Recently Relevant to Health Maintenance Insurance AETNA MEDICARE ADV [facility] * Guarantor: GRACE INTERIANO Account Type Relation to Patient Date of Phone Billing Address Personal/Family [address] [place] [address] * Guarantor: GRACE INTERIANO Account Type Relation to Patient Date of Phone Billing Address Personal/Family [address] [place] [phone] Advance Directives * Full Code (Latest Code [...] 3:16 PM 08/19/2024 4:36 PM Care Teams Cycle Director Relationship Specialty Start Date End Date Jeff Strickland MD [address] [place] [address] PCP - General 03/05/18 [place] [address] [address] Orthopedic Surgery 03/28/17
--- OUTSIDE RECORDS SUMMARY | 2024-11-04 14:58 | XMS_ITS | Clinical Summary ---
Author Organization [facility] Address [address], [place] [address] Phone Care Team Providers Care Tube Lancer Name Role Phone Jeff Strickland MD Primary Care Provider [phone] Allergies No known active allergies Medications levothyroxine [...] tablet 3 0 Active Continuous Blood Gluc Optomechanical Engineer (FreeStyle Em Arthur) device 1 each daily 0 Active Continuous Blood Gluc Sensor (FreeStyle Em Sensor System) misc 1 each once every 2 weeks 0 Active Lancets (OneTouch Delica Plus [id number]) misc OneTouch Delica Plus Lancet 33 gauge [...] 11/10/2019 Overview (12/17/2019): Kendall Carl 1955 Referring Saw Handle Assembler: Alan Mccall Dialysis Info: NOD GFR 13 Type: Time: (Not currently on dialysis) days Blood Type: O NEG Body mass index is 37.36 kg/m . ALERTS Acute Care Occupational Therapist: needs to establish Past Medical History: Diagnosis Date Arthropathy RA. Dr Strickland manages. CHF (congestive heart failure) 2 yrs ago Ruby Software Developer is Dr. Becerra in [place]. CKD (chronic kidney disease), stage V Community acquired pneumonia 2018 [facility] hospitalized. Diabetes mellitus 20 years. Lantus pen. Esophageal reflux takes med Hypercholesteremia 5-10 yrs meds Hypertension takes meds Hypothyroidism meds 20 years Kidney stones 5-6 years ago had 2 in the same year. Malignancy right kidney 2012 Obstructive sleep apnea 3 years. [facility]. Angela remember doctors name Renal cell [...] this social media content specialist that Kendall Gillris has several positive factors for Kidney transplant candidacy from a psychosocial perspective. Patient appears to have appropriate knowledge of illness. Patient has sufficient insurance coverage and stable financial situation for post transplant needs. No concerns regarding substance abuse, legal issues, or mental health needs. Patient has adequate support system and appropriate discharge plan. Plan: domestic laundry worker to provide supportive services as needed. Patient appears to be a reasonable candidate for transplant from a psychosocial perspective. -Post transplant arrangement forms are needed prior to being listed. -Updated toxicology results needed, per protocol Psychiatric Consult Recommended: No Transplant Classroom Technology Technician: Joy Tam LCSW RD: 11/09/2019 BMI= [...] use my fitness pal or my food cricket coach) - Consume no more than 2000 [...] nephrectomy. 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 [id number] Immunizations Immunization Administration Dates Next Due Influenza [...] Insurance AETNA PM INTERFACED INSURANCE Care Teams Tube Lancer Relationship Specialty Start Date End Date Jeff Strickland MD [address] [facility] [address] [facility] [address] [place] [address] PCP - General Internal Medicine 07/15/18
--- OUTSIDE RECORDS SUMMARY | 2024-11-04 14:58 | XMS_ITS | Encounter Summary ---
Author Organization [facility] Address [address] [place] [address] Care Team Providers Care Pension Agent Name Role Phone Deandre Bojorquez MD Unavailable [phone] Jeff Strickland MD Primary Care Provider [phone] Encounter Details Date Type Department Care Team (Late st Contact Info) Description 04/29/2024 Lab Requisition [facility] MA[facility] LAB [address] [place] [id number] Alan Davenport MD [facility] [place] [address] Social History Tobacco Use Types Packs/Day Years Used Date Smoking Tobacco: Never Smokeless Tobacco: Never Alcohol Use Standard Drinks/Week Comments Not Currently 0 (1 standard drink = 0.6 oz pur e alcohol) socially in past Sex and Gender Information Value Date Recorded Sex Assigned at Male 07/02/2021 2:37 PM CDT Legal Sex Male 10:14 PM FILM SORTER Gender Identity Male 07/02/2021 2:37 PM CDT [...] [facility] - Endocrinology [address] [facility], [place] [address] Marbin Flores MD [address] [facility] DIV OF [place] [address] Niraj Turner MD [address] [facility] 2L [place] [address] documented as of this encounter Procedures Procedure Name Priority Date/Time Associated Diagnosis Comments HOLD HLA SPECIMEN Routine 04/27/2024 1:4 8 PM CDT documented in this encounter Results * HOLD HLA SPECIMEN (04/27/2024 1:48 PM CDT) Hold HLA Specimen 04/29/2024 3:02 PM CDT [facility] Comment:The Hold HLA specime n has been received into the lab and will be held for 5 years at 4 degrees. Blood BLOOD SPECIMEN / Unknown 04/27/2024 1:48 PM CDT 04/29/2024 1:49 PM CDT Alan Davenport MD LAB - BLOOD BANK ORDERABLES F inal Result [facility] [address] [place] [address], [facility] documented in this encounter Visit Diagnoses Not on filedocumented in this encounter Additional Health Concerns Infection Onset Date Last Indicated Resolved Time COVID-19 Under Investigation 09/13/2024 09/13/2024 09/13/2024 6:36 AM CDT documented as of this encounter Care Teams Pension Agent Relationship Specialty Start Date End Date Jeff Strickland MD [address] [place] [address] PCP - General 03/05/18 [place] [address] [facility] [address] [place] [address] Orthopedic Surgery 03/28/17 documented as of this encounter
--- OUTSIDE RECORDS SUMMARY | 2024-11-04 14:58 | XMS_ITS | Encounter Summary ---
Author Organization [facility] Address [address] [place] [address] Care Team Providers Care Early Childhood Education Instructor Name Role Phone Deandre Bojorquez MD Unavailable [phone] Jeff Strickland MD Primary Care Provider [phone] Encounter Details Date Type Department Care Team (Late st Contact Info) Description 02/04/2024 Lab Requisition [facility] MA[facility] LAB [address] [place] [id number] Alan Davenport MD [facility] [place] [address] Social History Tobacco Use Types Packs/Day Years Used Date Smoking Tobacco: Never Smokeless Tobacco: Never Alcohol Use Standard Drinks/Week Comments Not Currently 0 (1 standard drink = 0.6 oz pur e alcohol) socially in past Sex and Gender Information Value Date Recorded Sex Assigned at Male 07/02/2021 2:37 PM CDT Legal Sex Male 10:14 PM QUANTITY SURVEYOR Gender Identity Male 07/02/2021 2:37 PM CDT [...] [facility] - [facility] [address] [facility], [place] [address] Marbin Flores MD [address] [facility] DIV [place] [address] Niraj Turner MD [address] [facility] 2L [place] [address] documented as of this encounter Procedures Procedure Name Priority Date/Time Associated Diagnosis Comments HOLD HLA SPECIMEN Routine 01/27/2024 3:2 3 PM QUANTITY SURVEYOR documented in this encounter Results * HOLD HLA SPECIMEN (01/27/2024 3:23 PM QUANTITY SURVEYOR) Hold HLA Specimen 02/04/2024 4:31 PM QUANTITY SURVEYOR [facility] Comment:The Hold HLA specime n has been received into the lab and will be held for 5 years at 4 degrees. Blood BLOOD SPECIMEN / Unknown 01/27/2024 3:23 PM QUANTITY SURVEYOR 02/04/2024 3:23 PM QUANTITY SURVEYOR Alan Davenport MD LAB - BLOOD BANK ORDERABLES F inal Result [facility] [address] [place] [address], [facility] documented in this encounter Visit Diagnoses Not on filedocumented in this encounter Additional Health Concerns Infection Onset Date Last Indicated Resolved Time COVID-19 Under Investigation 09/13/2024 09/13/2024 09/13/2024 6:36 AM CDT documented as of this encounter Care Teams Early Childhood Education Instructor Relationship Specialty Start Date End Date Jeff Strickland MD [address] [place] [address] PCP - General 03/05/18 [place] [address] [address] Orthopedic Surgery 03/28/17 documented as of this encounter
--- OUTSIDE RECORDS SUMMARY | 2024-11-04 14:58 | XMS_ITS | Encounter Summary ---
Author Organization [facility] Address [address] [place] [address] Care Team Providers Care Injection Molding Technician Name Role Phone Jeff Strickland MD Primary Care Provider Chan Nicholas MD Unavailable [phone] Alan Mccall MD Unavailable [phone] Pepito Haro MD PhD Unavailable Solange Guido MD Unavailable [phone] Encounter Details Date Type Department Care Team (Late st Contact Info) Description 07/28/2024 Orders Only [facility] Health Information Management [address] [place] [address] Scanning, Provider Social History Tobacco Use Types Packs/Day Years Used Date Smoking Tobacco: Never Smokeless Tobacco: Never Alcohol Use Standard Drinks/Week Comments Yes 0 (1 standard drink = 0.6 oz pur e alcohol) rarely [facility] Utilities Answer Date Recorded In the past 12 months has [email or web address] electric, gas, oil, or water company threatened [...] any clubs o r organizations such as uatsdin groups, unions, fraternal or athletic groups, or [...] slept in a retirement (including now)? 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 Sex Male 2:23 AM SONG AND DANCE PERFORMER Gender Identity Not on file Sexual Orientation [...] filedocumented in this encounter Care Teams Injection Molding Technician Relationship Specialty Start Date End Date Jeff Strickland MD [facility] [address] [place] [id number] PCP - General Family Medicine 04/02/18 Chan Nicholas MD [facility] [address] [address] Consulting Physician Gastroenterology 11/24/18 Alan Mccall MD [facility] [address] [address] Referring Physician Nephrology 11/24/18 Pepito Haro MD PhD [address] [place] [address] Consulting Physician Neurosurgery 12/03/22 Solange Guido MD [address] [facility] [address] [place] [address] Referring Physician Cardiovascular Disease 07/23/23 documented as of this encounter
--- OUTSIDE RECORDS SUMMARY | 2024-11-04 14:58 | XMS_ITS | Clinical Summary ---
Author Organization [facility] Address [address] [place] [address] Phone Care Team Providers Care Form Coverer Name Role Phone Jeff Strickland MD Primary Care Provider [phone] Allergies No known active allergies Medications pantoprazole [...] 112 mcg by mouth daily early childhood education coordinator. Active aspirin (ANGELLA) 325 mg tablet Take 325 mg by mouth daily. Active Vit C-Vit L-Jadtwc-EjYb-L utein (PRESERVISION) 226 mg-200 unit -5 mg-0.8 [...] Comments Blood Pressure 167/77 02/04/2019 9:16 AM PLAY WRITER Pulse 64 02/04/2019 9:16 AM PLAY WRITER Temperature 36.5 C (97.7 F) 02/04/2019 9:16 AM PLAY WRITER Respiratory Rate 16 02/04/2019 9:16 AM PLAY WRITER Oxygen Saturation 97% 02/04/2019 9:16 AM PLAY WRITER Inhaled Oxygen Concentration - - Weight 113.4 kg (250 lb) 02/04/2019 9:16 AM PLAY WRITER Height 175.3 cm (5' 9) 02/04/2019 9:16 AM PLAY WRITER Body Mass Index 36.92 02/04/2019 9:16 AM PLAY WRITER Plan of Treatment Health Maintenance Due [...] ACCESS/TRUE BLUE PPO AETNA MEDICARE SUPPLEMENT PPO [facility] BLUE ACCESS/TRUE BLUE PPO Care Teams Form Coverer Relationship Specialty Start Date End Date Jeff Strickland MD [address] [facility] [address] [place] [address] PCP - General Family Practice 01/01/19
--- OUTSIDE RECORDS SUMMARY | 2024-11-04 14:59 | XMS_ITS ---
Author Organization [facility] Address [address] [place] [address] Care Team Providers Care Consumer Electronics Merchandiser Name Role Phone Jeff Strickland MD Primary Care Provider Chan Nicholas MD Unavailable [phone] Alan Mccall MD Unavailable Pepito Haro MD PhD Unavailable Solange Guido MD Unavailable [phone] Dialysis Access Sites Type Status Location Placement [...] both eyes EGFR Routine 04/13/2024 5:06 AM SOFTWARE APPLICATIONS DESIGNER HEMOGLOBIN A1C STAT 04/10/2024 11:41 PM SOFTWARE APPLICATIONS DESIGNER LIPID PANEL STAT 04/10/2024 11:41 PM SOFTWARE APPLICATIONS DESIGNER from Last 3 Months or Most Recently [...] 300 + = 14 units Active FA-vit Zkybl-E-yxox-vitamin D3 (Dialyvite 800-Ultra D) 0.8-2,000 mg-unit tablet [...] total) by mouth 06/04/19 25 Active vitamins A,C,S-qyyi-nebpyo (PreserVision AREDS) 4,296 mcg-226 mg-90 mg capsule [...] damage Assessment & Plan (03/09/2024 6:25 PM SOFTWARE APPLICATIONS DESIGNER): Vision OD trends mild improvement, though [...] Since after 2019, has been seeing Dr. Hlyton and Dr. Wall. Hx of PDT OU [...] 03/26/2021 Assessment & Plan (03/26/2021 1:17 PM SOFTWARE APPLICATIONS DESIGNER): Enlarged mild sella turcica on a [...] units Assessment & Plan (03/26/2021 1:17 PM SOFTWARE APPLICATIONS DESIGNER): Chronic, uncontrolled, improving A1c today 7.7 [...] WNL Assessment & Plan (03/26/2021 1:16 PM SOFTWARE APPLICATIONS DESIGNER): Pt currently on Levothyroxine 112 mcg [...] 11/18/2018 Assessment & Plan (01/21/2019 2:02 PM SOFTWARE APPLICATIONS DESIGNER): Symptomatic. Will request for esophageal manometry. [...] well Assessment & Plan (03/26/2021 1:16 PM SOFTWARE APPLICATIONS DESIGNER): On statin therapy Tolerating well Last [...] nephrectomy. 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 [id number] Immunizations Immunization Administration Dates Next Due Hep [...] = 0.6 oz pur e alcohol) rarely [facility] [employer] Answer Date Recorded In the past 12 months has [employer], gas, oil, or water oragenics threatened to shut off services in your [...] often do you attend chur ch or adventism services? Never 03/25/2023 Do you belong to any clubs o r organizations such as moravian groups, unions, fraternal or athletic groups, or [...] on file Legal Sex Male 2:23 AM SOFTWARE APPLICATIONS DESIGNER Gender Identity Not on file Sexual [...] CDT Respiratory Rate 16 04/13/2024 8:33 AM SOFTWARE APPLICATIONS DESIGNER Oxygen Saturation 98% 04/13/2024 8:33 AM SOFTWARE APPLICATIONS DESIGNER Inhaled Oxygen Concentration - - Weight 122.3 [...] Selwyn Wong M.D. LC: MARC Report ID: [id number] Reading Location: [id number] Procedure Note Dolores Wong MD - 10/12/2024 EXAM DESCRIPTION: MRI BRAIN WO CONTRAST REASON FOR STUDY: other symptoms and signs involving cognitive functionsand awareness Cognitive changes, confusion, worse over that last several weeks, noinjury or trauma but patient states he has had several surgeries recently TECHNIQUE: Multiplanar imaging includes non-contrasted T1, T2, FLAIR, and diffusion with ADC map sequences. Additional sequence(s) sensitive [employer] products. Images stored on PACS. COMPARISON: MRI [...] Selwyn Wong M.D. LC: MARC Report ID: [id number] Reading Location: [id number] us Provider Transcribed Order IMG MRI PROCEDURES [...] Result * (ABNORMAL) eGFR (04/13/2024 5:06 AM SOFTWARE APPLICATIONS DESIGNER) eGFR 5(L) >=60 mL/min/1. 73 m2 Comment: [...] reviewed 2020. Blood 04/13/2024 5:0 6 AM SOFTWARE APPLICATIONS DESIGNER 04/13/2024 5:31 AM SOFTWARE APPLICATIONS DESIGNER us Saul Engle MD LAB BLOOD ORDERABLES Final Resul t [facility] Department of Laboratories [place], [place] [id number] * (ABNORMAL) Lipid panel (04/10/2024 11:41 PM SOFTWARE APPLICATIONS DESIGNER) Cholesterol 145 30 - 199 mg/dL Comment: [...] revised on 2017. HDL 22(L) >=40 mg/dL [facility] Comment: Interpretive Data [...] on 2017. LDL, calculated See Comment <=129 [facility] Comment: Unable to [...] last revised on 2017. Chol/HDL ratio 7 [facility] Blood 04/10/2024 11:4 1 PM SOFTWARE APPLICATIONS DESIGNER 04/10/2024 11:55 PM SOFTWARE APPLICATIONS DESIGNER us Nicole Boo MD LAB BLOOD ORDERABLES Final Result [facility] Department [place] [address] from Last 3 Months or Most Recently Relevant to Health Maintenance
--- OUTSIDE RECORDS SUMMARY | 2024-11-04 14:59 | XMS_ITS ---
Author Organization [facility] Address [facility] [place] [address] Care Team Providers Care Statement Request Clerk Name Role Phone Jeff Strickland MD Primary Care Provider Chan Nicholas MD Unavailable [phone] Alan Mccall MD Unavailable [phone] Pepito Haro MD PhD Unavailable [phone] Solange Guido MD Unavailable [phone] Active Problems Problem Noted Date Diagnosed Date [...] damage Assessment & Plan (03/09/2024 6:25 PM CANE PUSHER): Vision OD trends mild improvement, though still [...] We discussed that genetic results would not blade changer. Given we have exhausted available treatment [...] 03/26/2021 Assessment & Plan (03/26/2021 1:17 PM CANE PUSHER): Enlarged mild sella turcica on a routine [...] units Assessment & Plan (03/26/2021 1:17 PM CANE PUSHER): Chronic, uncontrolled, improving A1c today 7.7 % [...] WNL Assessment & Plan (03/26/2021 1:16 PM CANE PUSHER): Pt currently on Levothyroxine 112 mcg oral [...] 11/18/2018 Assessment & Plan (01/21/2019 2:02 PM CANE PUSHER): Symptomatic. Will request for esophageal manometry. Continue [...] well Assessment & Plan (03/26/2021 1:16 PM CANE PUSHER): On statin therapy Tolerating well Last lipid [...] nephrectomy. 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 [id number] Current Treatment and Therapy Plans No current [...] were not included. Kendall Carl 1955 Referring Client Service Associate: Alan Mccall Dialysis Info: NOD GFR 13 Type: Time: (Not currently on dialysis) days Blood Type: O NEG Body mass index is 37.36 kg/m . ALERTS Architectural Modeler: needs to establish Past Medical History: Diagnosis Date Arthropathy RA. Dr Strickland manages. CHF (congestive heart failure) 2 yrs ago Cob Sawyer is Dr. Becerra in [place]. CKD (chronic kidney disease), stage V Community acquired pneumonia 2018 [facility] hospitalized. Diabetes mellitus 20 years. Lantus pen. Esophageal reflux takes med Hypercholesteremia 5-10 yrs meds Hypertension takes meds Hypothyroidism meds 20 years Kidney stones 5-6 years ago had 2 in the same year. Malignancy right kidney 2012 Obstructive sleep apnea 3 years. [facility]. [facility] remember doctors name Renal cell [...] support system and appropriate discharge plan. Plan: fruit or nut farm worker to provide supportive services as needed. Patient appears to be a reasonable candidate for transplant from a psychosocial perspective. -Post transplant arrangement forms are needed prior to being listed. -Updated toxicology results needed, per protocol Psychiatric Consult Recommended: No Transplant Automatic Trimming Sewer: Joy Tam LCSW RD: 11/09/2019 BMI= 36.2, [...] 11/18/201803/25 Assessment & Plan (01/21/2019 2:02 PM CANE PUSHER): The pain is persistent. The patient described [...] has had extensive cardiac workup by the textile examiner including coronary angiogram. He has chest pain [...]
--- OUTSIDE RECORDS SUMMARY | 2024-11-04 14:59 | XMS_ITS | Encounter Summary ---
Author Organization [facility] Address [address] [place] [address] Care Team Providers Care Fire Lieutenant Marine Name Role Phone Deandre Bojorquez MD Unavailable [phone] Jeff Strickland MD Primary Care Provider [phone] Encounter Details Date Type Department Care Team (Late st Contact Info) Description 06/25/2024 Lab Requisition [facility] [address] [place] [id number] Alan Davenport MD [facility] [place] [address] Social History Tobacco Use Types Packs/Day Years Used Date Smoking Tobacco: Never Smokeless Tobacco: Never Alcohol Use Standard Drinks/Week Comments Not Currently 0 (1 standard drink = 0.6 oz pur e alcohol) socially in past Sex and Gender Information Value Date Recorded Sex Assigned at Male 07/02/2021 2:37 PM CDT Legal Sex Male 10:14 PM RETAIL ATTENDANT Gender Identity Male 07/02/2021 2:37 PM [...] 12/06/2024 10:40 AM CDT Office Visit [facility] - Endocrinology [address] [facility], [place] [address] Marbin Flores MD [address] [facility] [place] [address] Niraj Turner MD [address] [facility] 2L [place] [address] documented as of this encounter Procedures Procedure Name Priority Date/Time Associated Diagnosis Comments HOLD HLA SPECIMEN Routine 06/22/2024 11: 05 AM CDT documented in this encounter Results * HOLD HLA SPECIMEN (06/22/2024 11:05 AM CDT) Hold HLA Specimen 06/25/2024 12:32 PM CDT [facility] Comment:The Hold HLA specime n has been received into the lab and will be held for 5 years at 4 degrees. Blood BLOOD SPECIMEN / Unknown 06/22/2024 11:05 AM CDT 06/25/2024 11:05 AM CDT Alan Davenport MD LAB - BLOOD BANK ORDERABLES F inal Result [facility] [address] [place] [address], [facility] documented in this encounter Visit Diagnoses Not on filedocumented in this encounter Additional Health Concerns Infection Onset Date Last Indicated Resolved Time COVID-19 Under Investigation 09/13/2024 09/13/2024 09/13/2024 6:36 AM CDT documented as of this encounter Care Teams Fire Lieutenant Marine Relationship Specialty Start Date End Date Jeff Strickland MD [address] [place] [address] PCP - General 03/05/18 [place] [address] [address] [address] [place] [address] Orthopedic Surgery 03/28/17 documented as of this encounter
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
--- OUTSIDE RECORDS SUMMARY | 2024-11-04 15:01 | XMS_ITS | Encounter Summary ---
Author Organization [facility] Address [address] [address] Care Team Providers Care Cross Roller Name Role Phone Deandre Bojorquez MD Unavailable [phone] Jeff Strickland MD Primary Care Provider [phone] Reason for Visit * Reason Onset Date Comments Post-Op 09/03/2024 Encounter Details Date Type Department Care Team (Late st Contact Info) Description 09/03/2024 Telephone [facility] - Cardiology [address] [facility] [address] [place] [address] Hannah Goodman MD [address] [facility] [address] [place] [address] Post-Op Social History Tobacco Use Types Packs/Day [...] and heating? Not hard at all 09/04/2024 [facility] [place] [facility] - Occupational Stress [...] time in the past 12 m [facility], were you homeless or living in a senior care (including now)? No 09/04/2024 Sex and Gender Information Value Date Recorded Sex Assigned at Male 07/02/2021 2:37 PM CDT Legal Sex Male 10:14 PM LEGAL MANAGER Gender Identity Male 07/02/2021 2:37 PM [...] confused post op Patient Call Back number: [phone] documented in this encounter Plan of Treatment Upcoming Encounters Date Type Department Care Team (Late st Contact Info) Description 12/06/2024 10:40 AM CDT Office Visit [facility] - Endocrinology [facility] [facility], [place] [phone] Marbin Flores MD [address] [facility] DIV [place] [address] Niraj Turner MD [address] [facility] 2L [place] [address] documented as of this encounter Visit Diagnoses Not on filedocumented in this encounter Additional Health Concerns Infection Onset Date Last Indicated Resolved Time COVID-19 Under Investigation 09/13/2024 09/13/2024 09/13/2024 6:36 AM CDT documented as of this encounter Care Teams Cross Roller Relationship Specialty Start Date End Date Jeff Strickland MD [address] [place] [address] PCP - General 03/05/18 [place] [address] [address] Orthopedic Surgery 03/28/17 documented as of this encounter
--- OUTSIDE RECORDS SUMMARY | 2024-11-04 15:01 | XMS_ITS | Encounter Summary ---
Author Organization [facility] Address [address] [place] [address] Care Team Providers Care Mechanical Expert Name Role Phone Deandre Bojorquez MD Unavailable [phone] Jeff Strickland MD Primary Care Provider [phone] Encounter Details Date Type Department Care Team (Late st Contact Info) Description 09/10/2024 Telephone [facility] - Centralized Scheduling [facility] [place] [address] Niraj Turner MD [facility] [place] [address] Social History Tobacco Use Types Packs/Day Years [...] heating? Not hard at all 09/14/2024 [facility] [place] [facility] Occupat [facility] - Occupational Stress Questionnaire Answer [...] were you homeless or living in a chcf (including now)? No 09/14/2024 Sex and Gender Information Value Date Recorded Sex Assigned at Male 07/02/2021 2:37 PM CDT Legal Sex Male 10:14 PM RADIO DIVISION OFFICER Gender Identity Male 07/02/2021 2:37 PM [...] AM CDT Office Visit [facility] - Endocrinology [address] [place] [address], [place] [address] Marbin Flores MD [address] [facility] DIV [place] [address] Niraj Turner MD [address] [facility] [address] [place] [address] documented as of this encounter Visit Diagnoses Not on filedocumented in this encounter Additional Health Concerns Infection Onset Date Last Indicated Resolved Time COVID-19 Under Investigation 09/13/2024 09/13/2024 09/13/2024 6:36 AM CDT documented as of this encounter Care Teams Mechanical Expert Relationship Specialty Start Date End Date Jeff Strickland MD [address] [place] [address] PCP - General 03/05/18 [place] [address] [place] [id number] Orthopedic Surgery 03/28/17 documented as of this encounter
--- NOTE | 2024-11-04 15:12 | ED.CHESTPAIN ---
HPI - Chest Pain General Chief Complaint: Nausea/Vomiting/Diarrhea <Cata Montanez APRN - Last Filed: 11/07/24 15:06> Stated Complaint: N/V/D weakness <Cata Montanez APRN - Last Filed: 11/07/24 15:06> Time Seen by Provider: 11/04/24 15:12 <Cata Montanez APRN - Last Filed: 11/07/24 15:06> Focused HPI: Patient is a 69-year-old male who presents to the ER with chest pain, abdominal cramping, nervousness, nausea/vomiting, headache. He was seen in this ER two days ago due to insomnia. Patient was sent home with an increased dosage of Ativan. He reports he slept last night and the night before, but now he is not feeling well. Patient endorses a history of hyperlipidemia, high blood pressure, peritoneal dialysis, diabetes, and an amputated left great toe. He denies any acute back pain or recent fevers. GENERAL: Ill-appearing, obese, and in no acute distress. HEAD: Normocephalic, atraumatic. CHEST: Clear to auscultation, diminished bases. ?No respiratory distress. HEART: Regular rate and rhythm.? NEURO: ?Alert and oriented x3. Patient screened in triage and initial orders placed.? ?Additional care and disposition to be based upon?diagnostic testing and treatment. <Cata Montanez APRN - Last Filed: 11/07/24 15:06> History of Present Illness HPI narrative: per HPI <Usha Giron MD - Last Filed: 11/05/24 00:17> Related Data Home Medications: Home Medications ?Medication ?Instructions ?Recorded ?Confirmed ?Last Taken ?Type aspirin 81 mg tablet,delayed 81 mg PO HS 02/01/19 09/23/24 08/04/24 History release (Sami Low Dose Aspirin) vit C 250 mg-vit E 200 unit-zinc 1 tablet PO Q12H 02/01/19 09/23/24 08/05/24 History 12.5 mg-copper 1 [id number]-gzzcyn tablet (ICaps AREDS2 (copper citrate)) cholecalciferol (vitamin D3) 125 125 mcg PO DAILY 10/01/22 09/23/24 08/05/24 History mcg (5,000 unit) tablet (Vitamin D3) atorvastatin 80 mg tablet 80 mg PO HS 09/02/23 09/23/24 08/04/24 History folic acid 0.8 mg-vit B comp with 800 tablet PO DAILY 04/03/24 09/23/24 08/05/24 History R-[id number]-tqytiib D3 2,000 unit tablet (Dialyvite 800-Ultra D) insulin aspart U-100 100 unit/mL 1 sliding scale dose subcut TID 04/03/24 09/23/24 08/05/24 History (3 mL) subcutaneous pen (Novolog FlexPen U-100 Insulin aspart) insulin glargine 100 unit/mL (3 35 unit subcut HS 04/03/24 09/23/24 08/04/24 History mL) subcutaneous pen (Basaglar KwikPen U-100 Insulin) lisinopril 20 mg tablet 20 mg PO BID 04/21/24 09/23/24 08/05/24 History blood-glucose transmitter (Dexcom 04/23/24 09/23/24 Unknown History G6 Transmitter device) carvedilol 25 mg tablet 25 mg PO BID 06/17/24 09/23/24 08/05/24 History tamsulosin 0.4 mg capsule 0.4 mg PO HS 06/17/24 09/23/24 08/04/24 History clopidogrel 75 mg tablet 75 mg PO HS 07/25/24 09/23/24 08/04/24 History furosemide 80 mg tablet 160 mg PO BID 09/23/24 09/23/24 Unknown History nifedipine 30 mg tablet,extended 30 mg PO DAILY 09/23/24 09/23/24 Unknown History release <Cata Montanez APRN - Last Filed: 11/07/24 15:06> Allergies/Adverse Reactions: Allergies Allergy/AdvReac Type Severity Reaction Status Date / Time oxycodone AdvReac Unknown Hallucinati Verified 11/07/24 08:15 ng <Cata Montanez APRN - Last Filed: 11/07/24 15:06> Review of Systems Review of Systems: All systems reviewed & are unremarkable except as noted in HPI and below <Usha Giron MD - Last Filed: 11/05/24 00:17> [facility] Past Medical History Medical History: Medical History Hypertensive heart disease with heart failure Chronic diarrhea Family history of colon cancer in father Chronic ethmoidal sinusitis Nasal congestion Bilateral impacted cerumen Allergic rhinitis Chronic sinusitis Chronic recurrent sinusitis Hypertensive CHF C. difficile colitis Arthritis Kidney stones Benign prostatic hyperplasia Coronary artery disease End-stage renal disease on peritoneal dialysis Obstructive sleep apnea Insulin dependent type 2 diabetes mellitus Renal cell carcinoma Status post partial left nephrectomy. Dyslipidemia Clostridium difficile infection Gastroesophageal reflux disease Depression with anxiety Hypothyroidism Cirrhosis Pituitary tumor Status post resection. Anemia Chronic diastolic (congestive) heart failure Hypertension <Cata Montanez APRN - Last Filed: 11/07/24 15:06> Surgical History Surgical History: Surgical History History of open reduction and internal fixation (ORIF) procedure (11/2022) Screw fixation of sternal fracture. History of colonoscopy with polypectomy History of umbilical hernia repair History of inguinal hernia repair History of coronary artery stent placement History of cardiac catheterization (08/2020) Stent x2 to the LAD. History of arthroplasty of right knee History of cataract extraction History of pituitary surgery (11/2021) History of partial nephrectomy Partial left nephrectomy for renal cell carcinoma. History of cholecystectomy (2007) <Cata Montanez APRN - Last Filed: 11/07/24 15:06> Family History Family History: Family History Mother Aneurysm Hypertension Cerebrovascular accident Heart murmur Father Carcinoma of colon <Cata Montanez APRN - Last Filed: 11/07/24 15:06> Social History Social History: Social History Social History: Surrogate medical decision maker: Harriet Carl, spouse. Code status: Full code. Smoking status: Never smoker Second hand tobacco smoke exposure: No Alcohol intake: never Alcohol use details: rare, holidays Substance use: never Substance use type: does not use Do You Feel Safe in your Home?: Yes Lack of Transportation: No Lack of Food: Never True Current Housing: I Have Housing Concerned About Future Housing: No Difficulty Paying Gas/Electric Bills: No Difficulty Paying for Meds: No Currently Unemployed: No Education: Trade/Vocational Certificate Difficulty w/ Childcare or Family Care: No Living arrangements: with family Additional living arrangements comments: Lives with spouse in [place]. Occupation/Education: retired Additional occupation/education comments: [employer]. Spiritual care concerns: No Agree to blood products: Yes <Cata Montanez APRN - Last Filed: 11/07/24 15:06> Exam Narrative: EXAMINATION OF ORGAN SYSTEMS/BODY AREAS: Constitutional: Vital signs per nursing GENERAL:[No acute distress, non-toxic appearing.] HEAD: Normal with no signs of head trauma. EYES: EOMI, conjunctiva normal ENT: Hearing grossly intact LUNGS: Nonlabored breathing. HEART: [Regular rate and rhythm] ABD: [Soft], [nontender to palpation]. No redness around dialysis site EXT: Normal range of motion SKIN: [No rashes or lesions.] NEURO: [Alert and oriented x 3. No gross focal sensory or strength deficits.] PSYCH: Normal affect <Usha Giron MD - Last Filed: 11/05/24 00:17> Course Vital Signs Vital signs: Vital Signs Temperature 37.1 C 11/04/24 15:07 Pulse Rate 74 11/04/24 15:07 Respiratory Rate 18 11/04/24 15:07 Blood Pressure 120/62 11/04/24 15:07 Pulse Oximetry 100 11/04/24 15:07 Oxygen Delivery Room Air 11/04/24 15:07 Temperature 37.1 C 11/04/24 15:07 Pulse Rate 73 11/04/24 21:17 Respiratory Rate 15 11/04/24 21:17 Blood Pressure 169/86 H 11/04/24 21:17 Pulse Oximetry 100 11/04/24 21:17 Oxygen Delivery Room Air 11/04/24 15:07 <Cata Montanez APRN - Last Filed: 11/07/24 15:06> Vital Signs Temperature 37.1 C 11/04/24 15:07 Pulse Rate 74 11/04/24 15:07 Respiratory Rate 18 11/04/24 15:07 Blood Pressure 120/62 11/04/24 15:07 Pulse Oximetry 100 11/04/24 15:07 Oxygen Delivery Room Air 11/04/24 15:07 Temperature 37.1 C 11/04/24 15:07 Pulse Rate 73 11/04/24 21:17 Respiratory Rate 15 11/04/24 21:17 Blood Pressure 169/86 H 11/04/24 21:17 Pulse Oximetry 100 11/04/24 21:17 Oxygen Delivery Room Air 11/04/24 15:07 <Usha Giron MD - Last Filed: 11/05/24 00:17> MDM - Chest Pain MDM Narrative Medical decision making narrative: Electronic medical record was reviewed. Patient presented to the ED with complaint of nausea, vomiting, having trouble sleeping. Vitals [were within acceptable limits]. Physical exam revealed abdomen is soft without focal tenderness. Was found to have low blood sugar, he states because he has not eaten since he has been waiting in the waiting room, and has also had poor appetite and nausea the last few days. Patient given sugar here and something to eat with improvement in his blood sugar. CBC, BMP, lipase, LFTs, bilirubin and alk phos were obtained. Labs were pertinent for slightly elevated LFTs. [Decision was made to obtain a CT-abdomen to evaluate for acute abdominal process. CT-abdomen per radiology interpretation showing colitis.] On reevaluation, the patient states that they are feeling much better. There were no witnessed episodes of vomiting in the emergency department. They are not complaining of any new abdominal pain. Repeat examination did not show any significant guarding or rebound. No new tenderness. At this time I do not feel there is any further emergent treatment to be provided. He had also been able to take a nap. No new diarrhea and no recent antibiotic use I have low concern for C diff EKG on my independent interpretation shows sinus rhythm rate 63, ME with T8, QRS 109, QT 486, some slight ST flattening however this appears on his prior EKGs also. They would like to go home at this time, they have GI to follow up with, I will also put in information for follow-up to telescope operator. Have a primary care doctor in next few days. The patient was given strict return precautions, if they are to develop any worsening abdominal pain, vomiting, or blood in the vomit they are to return to the emergency department immediately. Patient verbally acknowledges understanding these directions. Patient and at bedside will also be checking his blood sugar when he goes to sleep tonight and supplement as needed. [The patient was informed of the above diagnostic test findings.] They will be discharged home [with prescriptions]. They were advised to follow-up with [their PCP] in 2 days. The patient feels that this is appropriate medical decision making and verbalizes an understanding of the discharge instructions. <Usha Giron MD - Last Filed: 11/05/24 00:17> Lab Data Result diagrams: 11/04/24 18:25 11/04/24 18:25 <Cata Montanez APRN - Last Filed: 11/07/24 15:06> Labs: Lab Results 11/04/24 11/04/24 11/04/24 Range/Units 18: 19:30 20:41 WBC 6.8 (4.5-10.0) K/mm3 RBC 3.56 L (4.6-6.20) M/mm3 Hgb 9.9 L (14.0-18.0) g/dL Hct 31.3 L (42.0-52.0) % MCV 87.9 (80-100) fl MCH 27.8 (26-34) pg MCHC 31.6 L (32-36) g/dl RDW 16.1 H (11.5-14.5) % Plt Count 204 (150-375) k/mm3 MPV 10.1 (7.4-10.4) fl Immature Gran % (Auto) 1.2 H (0-0.5) % Neut % (Auto) 65.4 (45.5-73.1) % Lymph % (Auto) 18.3 (18.3-44.2) % [place] % (Auto) 14.0 H (2.6-8.5) % Eos % (Auto) 1.0 (0-4.4) % Baso % (Auto) 0.1 L (0.2-1.2) % Lymph # (Auto) 1.24 (0.9-3.2) K/mm3 [place] # (Auto) 1.0 H (0.1-0.6) K/mm3 Eos # (Auto) 0.1 (0-0.3) K/mm3 Baso # (Auto) 0.0 (0.0-0.1) K/mm3 Abs Immat Gran (auto) 0.08 H (0.00-0.031) K/mm3 Absolute Neuts (auto) 4.4 (1.3-6.7) K/mm3 Absolute Nucleated RBC 0.000 (0.0-0.012) K/mm3 Nucleated RBC % 0.0 (0.0-0.2) % Sodium 133 L (137-145) mmol/L Potassium 3.4 (3.4-5.0) mmol/L Chloride 96 L (98-107) mmol/L Carbon Dioxide 29 (22-30) mmol/L Anion Gap 8 (4-12) mmol/L BUN 32 H (9-20) mg/dL Creatinine 7.90 H (0.7-1.3) mg/dL Estim Creat Clear Calc 10 ml/min Estimated GFR 7 L (59 - ) Glucose 57 L* (65-110) mg/dL POC Capillary Glucose 49 L* 64 L (65-105) mg/dl Calcium 8.3 L (8.4-10.2) mg/dL Total Bilirubin 0.5 (0.2-1.3) mg/dL AST 77 H (17-59) U/L ALT 101 H (6-50) U/L Alkaline Phosphatase 110 (38-126) U/L Troponin I 0.032 (0.000-0.034) ng/mL Total Protein 6.1 L (6.3-8.2) g/dL Albumin 3.0 L (3.5-5.1) g/dL Lipase 71 (23-300) U/L Influenza A (RT-PCR) Negative (Negative) Influenza B (RT-PCR) Negative (Negative) RSV (RT-PCR) Negative (Negative) SARS-CoV-2 RNA (RT-PCR) Negative (Negative) 11/04/24 Range/Units 21:35 WBC (4.5-10.0) K/mm3 RBC (4.6-6.20) M/mm3 Hgb (14.0-18.0) g/dL Hct (42.0-52.0) % MCV (80-100) fl MCH (26-34) pg MCHC (32-36) g/dl RDW (11.5-14.5) % Plt Count (150-375) k/mm3 MPV (7.4-10.4) fl Immature Gran % (Auto) (0-0.5) % Neut % (Auto) (45.5-73.1) % Lymph % (Auto) (18.3-44.2) % [place] % (Auto) (2.6-8.5) % Eos % (Auto) (0-4.4) % Baso % (Auto) (0.2-1.2) % Lymph # (Auto) (0.9-3.2) K/mm3 [place] # (Auto) (0.1-0.6) K/mm3 Eos # (Auto) (0-0.3) K/mm3 Baso # (Auto) (0.0-0.1) K/mm3 Abs Immat Gran (auto) (0.00-0.031) K/mm3 Absolute Neuts (auto) (1.3-6.7) K/mm3 Absolute Nucleated RBC (0.0-0.012) K/mm3 Nucleated RBC % (0.0-0.2) % Sodium (137-145) mmol/L Potassium (3.4-5.0) mmol/L Chloride (98-107) mmol/L Carbon Dioxide (22-30) mmol/L Anion Gap (4-12) mmol/L BUN (9-20) mg/dL Creatinine (0.7-1.3) mg/dL Estim Creat Clear Calc ml/min Estimated GFR (59 - ) Glucose (65-110) mg/dL POC Capillary Glucose 69 (65-105) mg/dl Calcium (8.4-10.2) mg/dL Total Bilirubin (0.2-1.3) mg/dL AST (17-59) U/L ALT (6-50) U/L Alkaline Phosphatase (38-126) U/L Troponin I (0.000-0.034) ng/mL Total Protein (6.3-8.2) g/dL Albumin (3.5-5.1) g/dL Lipase (23-300) U/L Influenza A (RT-PCR) (Negative) Influenza B (RT-PCR) (Negative) RSV (RT-PCR) (Negative) SARS-CoV-2 RNA (RT-PCR) (Negative) <Cata Montanez, LEARNING MANAGER - Last Filed: 11/07/24 15:06> Lab Results 11/04/24 11/04/24 11/04/24 Range/Units 18:25 19:30 20:41 WBC 6.8 (4.5-10.0) K/mm3 RBC 3.56 L (4.6-6.20) M/mm3 Hgb 9.9 L (14.0-18.0) g/dL Hct 31.3 L (42.0-52.0) % MCV 87.9 (80-100) fl MCH 27.8 (26-34) pg MCHC 31.6 L (32-36) g/dl RDW 16.1 H (11.5-14.5) % Plt Count 204 (150-375) k/mm3 MPV 10.1 (7.4-10.4) fl Immature Gran % (Auto) 1.2 H (0-0.5) % Neut % (Auto) 65.4 (45.5-73.1) % Lymph % (Auto) 18.3 (18.3-44.2) % [place] % (Auto) 14.0 H (2.6-8.5) % Eos % (Auto) 1.0 (0-4.4) % Baso % (Auto) 0.1 L (0.2-1.2) % Lymph # (Auto) 1.24 (0.9-3.2) K/mm3 [place] # (Auto) 1.0 H (0.1-0.6) K/mm3 Eos # (Auto) 0.1 (0-0.3) K/mm3 Baso # (Auto) 0.0 (0.0-0.1) K/mm3 Abs Immat Gran (auto) 0.08 H (0.00-0.031) K/mm3 Absolute Neuts (auto) 4.4 (1.3-6.7) K/mm3 Absolute Nucleated RBC 0.000 (0.0-0.012) K/mm3 Nucleated RBC % 0.0 (0.0-0.2) % Sodium 133 L (137-145) mmol/L Potassium 3.4 (3.4-5.0) mmol/L Chloride 96 L (98-107) mmol/L Carbon Dioxide 29 (22-30) mmol/L Anion Gap 8 (4-12) mmol/L BUN 32 H (9-20) mg/dL Creatinine 7.90 H (0.7-1.3) mg/dL Estim Creat Clear Calc 10 ml/min Estimated GFR 7 L (59 - ) Glucose 57 L* (65-110) mg/dL POC Capillary Glucose 49 L* 64 L (65-105) mg/dl Calcium 8.3 L (8.4-10.2) mg/dL Total Bilirubin 0.5 (0.2-1.3) mg/dL AST 77 H (17-59) U/L ALT 101 H (6-50) U/L Alkaline Phosphatase 110 (38-126) U/L Troponin I 0.032 (0.000-0.034) ng/mL Total Protein 6.1 L (6.3-8.2) g/dL Albumin 3.0 L (3.5-5.1) g/dL Lipase 71 (23-300) U/L Influenza A (RT-PCR) Negative (Negative) Influenza B (RT-PCR) Negative (Negative) RSV (RT-PCR) Negative (Negative) SARS-CoV-2 RNA (RT-PCR) Negative (Negative) 11/04/24 Range/Units 21:35 WBC (4.5-10.0) K/mm3 RBC (4.6-6.20) M/mm3 Hgb (14.0-18.0) g/dL Hct (42.0-52.0) % MCV (80-100) fl MCH (26-34) pg MCHC (32-36) g/dl RDW (11.5-14.5) % Plt Count (150-375) k/mm3 MPV (7.4-10.4) fl Immature Gran % (Auto) (0-0.5) % Neut % (Auto) (45.5-73.1) % Lymph % (Auto) (18.3-44.2) % [place] % (Auto) (2.6-8.5) % Eos % (Auto) (0-4.4) % Baso % (Auto) (0.2-1.2) % Lymph # (Auto) (0.9-3.2) K/mm3 [place] # (Auto) (0.1-0.6) K/mm3 Eos # (Auto) (0-0.3) K/mm3 Baso # (Auto) (0.0-0.1) K/mm3 Abs Immat Gran (auto) (0.00-0.031) K/mm3 Absolute Neuts (auto) (1.3-6.7) K/mm3 Absolute Nucleated RBC (0.0-0.012) K/mm3 Nucleated RBC % (0.0-0.2) % Sodium (137-145) mmol/L Potassium (3.4-5.0) mmol/L Chloride (98-107) mmol/L Carbon Dioxide (22-30) mmol/L Anion Gap (4-12) mmol/L BUN (9-20) mg/dL Creatinine (0.7-1.3) mg/dL Estim Creat Clear Calc ml/min Estimated GFR (59 - ) Glucose (65-110) mg/dL POC Capillary Glucose 69 (65-105) mg/dl Calcium (8.4-10.2) mg/dL Total Bilirubin (0.2-1.3) mg/dL AST (17-59) U/L ALT (6-50) U/L Alkaline Phosphatase (38-126) U/L Troponin I (0.000-0.034) ng/mL Total Protein (6.3-8.2) g/dL Albumin (3.5-5.1) g/dL Lipase (23-300) U/L Influenza A (RT-PCR) (Negative) Influenza B (RT-PCR) (Negative) RSV (RT-PCR) (Negative) SARS-CoV-2 RNA (RT-PCR) (Negative) <Usha Giron MD - Last Filed: 11/05/24 00:17> Discharge Plan Discharge Clinical Impression: Colitis, Hypoglycemia <Cata Montanez APRN - Last Filed: 11/07/24 15:06> Patient Disposition: Home <Cata Montanez APRN - Last Filed: 11/07/24 15:06> Condition: Stable <Cata Montanez APRN - Last Filed: 11/07/24 15:06> Instructions: Hypoglycemia in a Person with Diabetes (ED), Colitis (ED) <Cata Montanez APRN - Last Filed: 11/07/24 15:06> Additional Instructions: Please follow up with your GI specialist and the telescope operator, respiratory therapy technician, and PCP. Make sure you are eating/drinking adequately and check your blood sugar regularly especially if you are still administering insulin; check it before you sleep tonight. If your blood sugar remains low or if you have any further symptoms including nausea/vomiting, chest pain, can't keep anything down, or anything else concerning, please come back to the ER. <Cata Montanez, LEARNING MANAGER - Last Filed: 11/07/24 15:06> Patient Language: Kazakh <Cata Montanez, LEARNING MANAGER - Last Filed: 11/07/24 15:06> Prescriptions: New famotidine 20 mg tablet 20 mg PO DAILY Qty: 30 0RF ondansetron 4 mg tablet,disintegrating 4 mg PO Q8H PRN (Reason: nausea and vomiting) Qty: 8 0RF No Action aspirin [Sami Low Dose Aspirin] 81 mg Tablet,Delayed Release (Dr/Ec) 81 mg PO HS ICaps AREDS2 (copper citrate) 250 mg-200 unit -12.5 mg-1 mg Tablet 1 tablet PO Q12H pantoprazole 40 mg tablet,delayed release (DR/EC) 40 mg PO QAM Qty: 30 3RF (DME) Dexcom G6 Transmitter Device See Rx Instructions .Route Rx Instructions: As directed gabapentin 100 mg tablet 100 mg PO BID Qty: 60 1RF nifedipine 30 mg tablet extended release 30 mg PO DAILY lanthanum 1,000 mg tablet,chewable 1,000 mg PO TID Qty: 1 0RF Rx Instructions: administer with food; chew thoroughly before swallowing furosemide 80 mg tablet 160 mg PO BID lisinopril 20 mg tablet 20 mg PO BID cholecalciferol (vitamin D3) [Vitamin D3] 125 mcg (5,000 unit) Tablet 125 mcg PO DAILY atorvastatin 80 mg tablet 80 mg PO HS carvedilol 25 mg tablet 25 mg PO BID tamsulosin 0.4 mg capsule 0.4 mg PO HS Dialyvite 800-Ultra D 0.8-2,000 mg-unit tablet 800 tablet PO DAILY insulin aspart U-100 [Novolog FlexPen U-100 Insulin] 100 unit/mL (3 mL) insulin pen 1 sliding scale dose subcut TID Patient Comments: PATIENT TAKES 5 UNITS WITH MEALS SCHEDULED AND GOES UP TO 15 UNITS IF IT GETS TO 300 insulin glargine [Basaglar KwikPen U-100 Insulin] 100 unit/mL (3 mL) insulin pen 35 unit subcut HS Patient Comments: 40 UNITS IN MORNING clopidogrel 75 mg tablet 75 mg PO HS hydrocodone-acetaminophen 5-325 mg tablet 1 tablet PO Q6H PRN (Reason: pain) Qty: 30 0RF levothyroxine 112 mcg tablet 112 mcg PO DAILY Qty: 90 2RF lorazepam [Ativan] 1 mg tablet 1 mg PO HS PRN (Reason: sleep) Qty: 14 0RF <Cata Montanez, RAGHU - Last Filed: 11/07/24 15:06> Follow-up/Referrals: Jeff Strickland MD [Primary Care Provider, Family Practice] Lalit Platt MD [Physician, Cardiology] - 2 Days <Cata Montanez APRN - Last Filed: 11/07/24 15:06>
[2024-11-04 18:33] LABS: Hematocrit 31.3 % (42.0-52.0); Hemoglobin 9.9 g/dL (14.0-18.0); Immature Granulocyte Percent A 1.2 % (0-0.5); Lymphocytes Absolute Auto 1.24 K/mm3 (0.9-3.2); Mean Corpuscular HGB Conc 31.6 g/dl (32-36); Mean Corpuscular Hemoglobin 27.8 pg (26-34); Mean Corpuscular Volume 87.9 fl (80-100); Nucleated Red Blood Cells Absolute Auto 0.000 K/mm3 (0.0-0.012); Nucleated Red Blood Cells Perc 0.0 % (0.0-0.2); Platelet Count Result 204 k/mm3 (150-375); Red Blood Count 3.56 M/mm3 (4.6-6.20); White Blood Count 6.8 K/mm3 (4.5-10.0)
[2024-11-04 19:01] LABS: Alanine Aminotransferase 101 U/L (6-50); Albumin Level 3.0 g/dL (3.5-5.1); Alkaline Phosphatase 110 U/L (38-126); Anion Gap 8 mmol/L (4-12); Aspartate Amino Transferase 77 U/L (17-59); Bilirubin,Total 0.5 mg/dL (0.2-1.3); Blood Urea Nitrogen 32 mg/dL (9-20); Calcium 8.3 mg/dL (8.4-10.2); Carbon Dioxide 29 mmol/L (22-30); Chloride 96 mmol/L (98-107); Estimated CRCL calculation 10 ml/min; Estimated Glomerular Filt Rate 7; Glucose 57 mg/dL (65-110); Lipase 71 U/L (23-300); Potassium 3.4 mmol/L (3.4-5.0); Sodium 133 mmol/L (137-145); Total Protein 6.1 g/dL (6.3-8.2); Troponin I 0.032 ng/mL (0.000-0.034)
[2024-11-04 19:06] LABS: Influenza A QL RT-PCR Negative (Negative); Influenza B QL RT-PCR Negative (Negative); RSV RNA, RT-PCR Negative (Negative); SARS-CoV-2 RNA PCR Negative (Negative)
--- NOTE | 2024-11-04 19:08 | ECG_ITS ---
Test Date: 2024-11-04 20:48:06 Measurements Intervals [place] Rate: 63 P: 62 [place]: 158 QRS: -65 QRSD: 109 T: -28 QT: 486 QTc: 500 Interpretive Statements SINUS RHYTHM INCOMPLETE RIGHT BUNDLE BRANCH BLOCK [90+ ms QRS DURATION, TERMINAL R IN V1/V2, 40+ ms S IN I/aVL/V4/V5/V6] LEFT ANTERIOR FASCICULAR BLOCK [QRS AXIS <= -45, QR IN I, RS IN II] ANTEROSEPTAL MYOCARDIAL INFARCTION , OF INDETERMINATE AGE [40+ ms Q WAVE IN V1-V4] NONSPECIFIC ST AND T-WAVE ABNORMALITY ABNORMAL ECG Compared to ECG 07/25/2024 02:02:27 Incomplete right bundle-branch block now present Right bundle-branch block no longer present Myocardial infarct finding still present Electronically Signed On 11-05-2024 08:06:19 CDT by Lalit Platt M.D.
[2024-11-04] MEDS: GLUCOSE ORAL GEL 15 GM OF GLUCSE IN 37.5 GM TUBE PO (19:39)
== END 2024-11-04 21:51 | disposition home or self-care (01) ==
PROVIDERS: Registered Nurse; Emergency Provider Emergency Medicine; PCP Family Medicine
DX: K52.9 Noninfective gastroenteritis and colitis, unspecified (principal); E11.649 Type 2 diabetes mellitus with hypoglycemia without coma; Z20.822 Contact with and (suspected) exposure to COVID-19; E11.22 Type 2 diabetes mellitus with diabetic chronic kidney disease; I13.2 Hypertensive heart and chronic kidney disease with heart failure and with stage 5 chronic kidney disease, or end stage renal disease; N18.6 End stage renal disease; I50.32 Chronic diastolic (congestive) heart failure; Z99.2 Dependence on renal dialysis; J32.2 Chronic ethmoidal sinusitis; E78.5 Hyperlipidemia, unspecified; N40.0 Benign prostatic hyperplasia without lower urinary tract symptoms; K74.60 Unspecified cirrhosis of liver; D64.9 Anemia, unspecified; M19.90 Unspecified osteoarthritis, unspecified site; Z95.5 Presence of coronary angioplasty implant and graft; Z96.651 Presence of right artificial knee joint; F41.8 Other specified anxiety disorders; Z85.528 Personal history of other malignant neoplasm of kidney; Z87.442 Personal history of urinary calculi; Z86.0100 Personal history of colon polyps, unspecified; Z98.49 Cataract extraction status, unspecified eye; Z90.5 Acquired absence of kidney; Z90.49 Acquired absence of other specified parts of digestive tract; Z79.82 Long term (current) use of aspirin; Z79.899 Other long term (current) drug therapy; Z79.4 Long term (current) use of insulin; Z79.02 Long term (current) use of antithrombotics/antiplatelets; I45.2 Bifascicular block; R94.31 Abnormal electrocardiogram [ECG] [EKG]
CPT/HCPCS: 36415; 74176; 80053; 82948; 83690; 84484; 85025; 87637; 93005; 99284; A9270

== ENCOUNTER 2024-11-07 08:06 | Emergency (ER) | payer MEDICARE, SELFPAY ==
--- OUTSIDE RECORDS SUMMARY | 2009-04-18 10:00 | XMS_ITS | Continuity of Care Document ---
Author Organization [facility] Address [address] [place] [address] Phone Care Team Providers Care Systems Manager Name Role Phone Kee Rodriguez Unavailable Unavailable Procedures Procedure Date Office/outpatient Visit, Est Eye Exam Established Pt Advance Directives Directive Yes / No Effective Date File Name No Information Encounters Encounter Description Practice Location Reason(s) For Visit Diagnoses Date Provider Providers Copied on Encounter Office/outpat ient Visit, Est [facility], [address] [place] [address] [address], [place], [place], [address], tel:[phone] SEC [facility] No Information Mar-0 2-201 0 Krishnasamy Kee. [address] [facility] [place] [address], [place], [place], [facility], [place]. tel:[phone] [facility], [address] [place] [address] [address], [place], [place], [address], tel:[phone] [facility] No Information Nhan-3 0-200 7 David OD Freddy. [address], [place], [place], [facility], [place]. tel:[phone] Family History Family Member Type Diagnosis Age At Onset No Information Payers Payer name Insurance type Covered libertarian ID Authoriza tion(s) No Information Social History [...]
--- OUTSIDE RECORDS SUMMARY | 2023-09-09 06:59 | XMS_ITS | Continuity of Care Document ---
Author Organization [employer] [place] Address [address] [facility] [address] [facility] [address] [place] [address] Phone Care Team Providers Care Technician Support Association Name Role Phone Olu Payan Unavailable Unavailable [...] Diagnoses Date Provider Providers Copied on Encounter [facility], [place], [place], [address], tel:[phone] [place] No Information [address] Glad[address] Olu[address] [place] [address], [address], [place], [facility], . tel: [phone] [address] [place] [address], [place], [place], [address], tel:[phone] [place] No Information 4 Genoveva Mcdonald. . Referring Provider: Jeff Strickland [address] [place] [address] 162 [address], [place], [place], [facility]. tel:[phone] [place] [address] [address], [place], [place], [address], tel:[phone] [place] No Information 4 Gladis Olu. [address] [place] [address], [address], [place], [facility], . tel: [phone] Referring Provider: Yanira Chin [facility] [address], [place], [facility]. tel:[phone] [place] [address] [address], [place], [place], [address], tel:[phone] [place] No Information 4 Gladis Raines. [address] [place] [address], [address], [place], [facility], . tel: [phone] Referring Provider: Yanira Chin [facility] [address], [place], [address]. tel:[phone], [id number], tel:[phone] [place] No Information 4 Jacinto Fairchild. . Referring Provider: Yanira Chin [facility] [address], [place], [address]. tel:[phone], [place], [place], [address], [place] tel:[phone] [place] No Information 4 Jacinto Fairchild. . Referring Provider: Jeff Strickland [address] [place] [address] [address], [place], [facility]. tel:[phone], [address], tel:[phone] [place] No Information 4 Genoveva Mcdonald. . Referring Provider: Jeff Strickland [address] [place] [address] 162 [address], [place], [facility]. tel:[phone], [address], tel:[phone] [place] No Information 4 Gladis Raines. [address] [facility], [address], [place], [facility], . tel: [phone] Referring Provider: Jeff Strickland [address] [place] [address] [address], [place], [facility]. tel:[phone], [address], tel:[phone] [place] No Information 0 4 Geonveva Mcdonald. . Referring Provider: Jeff Strickland [address] [place] [address] 162 [address], [place], [facility]. tel:[phone], [place], [address], [place] tel:[phone] [place] No Information 0 4 Gladis Raines. [address] [facility], [address], [place], [facility], . tel: [phone] Referring Provider: Jeff Strickland [address] [place] [address] [address], [place], [facility]. tel:[phone] Family History Family Member Type Diagnosis Age At Onset No Information Payers Payer name Insurance type Covered republican ID Diego suarez(ernesto Hadley [id number] Social History Type Description Quantity Date Captured [...]
--- OUTSIDE RECORDS SUMMARY | 2024-01-19 09:15 | XMS_ITS ---
Author Organization [facility] Address [address] [place] [address] [place] [address] Care Team Providers Care Negative Turner Apprentice Name Role Phone DONNIE WOOD MD Primary Care Provider Lance Sergio Trujillo Unavailable [phone] REASON FOR VISIT Left > Right Low [...] 01/19/2024 BMI 33.81 kg/m2 01/19/2024 Post procedure ry=334/71,65, 16.Discharged home ambulatory with per ambulatory. No acute distress noted. Encounters Encounter Location Date Provider Diagnosis [facility] [address] [place] [address] [place] [address] 01/19/2024 Sergio Schmitzick Radiculopathy, lumba r region [...] home in good condition with a pile driver operator helper. X-ray time: 25 seconds Progress Notes * [...] patient's typical axial low back pain. John's, [place]'s and Gaenslen's are positive bilaterally. There is [...]
--- OUTSIDE RECORDS SUMMARY | 2024-02-03 06:45 | XMS_ITS ---
Author Organization [facility] Address [address] [facility] [place] [address] Care Team Providers Care Client Services Administrator Name Role Phone DONNIE WOOD MD Primary Care Provider Lance Sergio Trujillo Unavailable [phone] ALLERGIES No Known Allergies REASON FOR VISIT [...] retired. 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 John's, [place]'s and Gaenslen's are positive bilaterally. There is [...]
--- OUTSIDE RECORDS SUMMARY | 2024-03-03 06:30 | XMS_ITS ---
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 He denies tobacco, alcohol, or illicit drug abuse PROBLEMS Problem Type ICD Code Onset Dates Problem Status W/U Status Risk SNOMED Code Notes Problem Primary osteoarthritis, 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) Active confirmed Localized, primary osteoarthritis of the shoulder region ([id number]) VITAL SIGNS Blood pressure systolic 112 mm Hg 03/03/19 25 Blood pressure diastolic 62 mm Hg 025 Heart Rate 59 /min 03/03/2024 Respiratory Rate 18 /min 03/03/2024 Height 5 ft 9 in in 03/03/2024 Weight 229 lbs 03/03/2024 BMI 33.81 kg/m2 03/03/2024 Encounters Encounter Location Date Provider Diagnosis [facility] [address] [facility] [place] [address] 03/03/2024 Sergio Stynowick Pain in left knee M25.562 ; Primary osteoarthritis, unspecified shoulder M19.019 ; Other chest pain R07.89 ; Radiculopathy, lumbar region M54.16 ; Other intervertebral disc degeneration, lumbar region M51.36 ; 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 John's, [place]'s and Gaenslen's are positive bilaterally. There is [...]
--- OUTSIDE RECORDS SUMMARY | 2024-03-08 07:45 | XMS_ITS ---
Author Organization [facility] Address [address] [place] [address] [place] [address] Care Team Providers Care Collar Sewer Name Role Phone DONNIE WOOD MD Primary Care Provider Robba Sergio Trujillo Unavailable [phone] REASON FOR VISIT BILAT SHOULDER JOINT INJECTION (NEED XRAY - BEING DONE AT [facility]) MEDICATIONS Medication SIG (Take, Route, Frequency, [...] Location Date Provider Diagnosis [facility] [address] [place] [phone] 03/08/2024 Sergio Rivera Primary osteoarthritis, unspecified shoulder [...] discharged home in good condition with a shuttle bus driver. X-ray time: 6 seconds Progress Notes [...] patient's typical axial low back pain. John's, [place]'s and Gaenslen's are positive bilaterally. There is [...] and Follow-up: Follow-up Plan documen wendy:: Yes [facility] Quality 2020: [facility] Documented:: Compliant
--- OUTSIDE RECORDS SUMMARY | 2024-03-31 10:13 | XMS_ITS ---
Author Organization [facility] Address [address] [facility] [address] [place] [address] Care Team Providers Care Employment Trainer Name Role Phone DONNIE WOOD MD Primary Care Provider Unavaila Sergio Trujillo Unavailable [phone] Encounters Encounter Location Date Provider Diagnosis [facility] [address] [place] [address] 03/31/2024 Sergio Rivera PLAN OF TREATMENT No Information
--- NOTE | ~2024-11-07 | CT_ITS ---
CT HEAD NON-CONTRAST Clinical History: worrell and confusion Comparison: CT brain 10/30/2024 Technique: Unenhanced axial images skull base to vertex Coronal, sagittal reformats CT images acquired with automatic exposure control for dose reduction DLP: 757 mGy-cm Findings: Mild global atrophy. Mild white matter changes, typically chronic microvascular ischemic disease. Symmetrical bilateral calcifications within cerebellum, basal ganglia, and tiny foci within frontal lobe white matter. Prior pituitary resection. Sulci, ventricles: Unremarkable. No intracerebral hemorrhage. No evidence acute territorial infarct. No mass effect, midline shift. Bony calvarium intact. Visualized paranasal sinuses: Sphenoid mucosal thickening. Mastoid air cells: Clear. IMPRESSION: 1. No acute intracranial findings. 2. Nonspecific intracranial calcifications. Metabolic abnormality possible. Mild manifestation of Fahr syndrome also possible. Reviewed, dictated and finalized at location R. IMPRESSION: 1. No acute intracranial findings. 2. Nonspecific intracranial calcifications. Metabolic abnormality possible. Mi ld manifestation of Fahr syndrome also possible.
--- NOTE | ~2024-11-07 | XR_ITS ---
Examination: XR chest 2V Clinical History: CP Comparison: Chest x-ray 07/24/2024 Technique: PA and Lateral Findings: Cardiomediastinal silhouette normal size and configuration. Lungs clear. No acute bony abnormality. IMPRESSION: 1. No acute cardiopulmonary findings. Reviewed, dictated and finalized at location R.
--- NOTE | 2024-11-07 08:08 | ECG_ITS ---
Test Date: 2024-11-07 08:15:01 Measurements Intervals [place] Rate: 68 P: 87 NE: 157 QRS: -59 QRSD: 105 T: 33 QT: 437 QTc: 466 Interpretive Statements SINUS RHYTHM LEFT AXIS DEVIATION /LEFT ANTERIOR FASCICULAR BLOCK INCOMPLETE RIGHT BUNDLE BRANCH BLOCK [90+ ms QRS DURATION, TERMINAL R IN V1/V2, 40+ ms S IN I/aVL/V4/V5/V6] ABNORMAL ECG Compared to ECG 11/04/2024 20:48:06 NO SIGNIFICANT CHANGE Electronically Signed On 11-07-2024 08:32:05 CDT by Elroy Miranda M.D.
--- OUTSIDE RECORDS SUMMARY | 2024-11-07 08:09 | XMS_ITS | Encounter Summary ---
Author Organization [facility] Address [facility] [place] [address] Care Team Providers Care Canal Tender Name Role Phone Deandre Bojorquez MD Unavailable [phone] Jeff Strickland MD Primary Care Provider [phone] Encounter Details Date Type Department Care Team (Late st Contact Info) Description 09/30/2023 Lab Requisition [facility] MAIN LAB [address] [place] [phone] Alan Davenport MD [facility]1 [facility] [place] [address] Social History Tobacco Use Types Packs/Day Years Used Date Smoking Tobacco: Never Smokeless Tobacco: Never Alcohol Use Standard Drinks/Week Comments Not Currently 0 (1 standard drink = 0.6 oz pur e alcohol) socially in past Sex and Gender Information Value Date Recorded Sex Assigned at Male 07/02/2021 2:37 PM CDT Legal Sex Male 10:14 PM CONSULTANT INTERN Gender Identity Male 07/02/2021 2:37 PM [...] Care Team (Late st Contact Info) Description 11/12/2024 8:00 AM CDT Appointment [facility] IVR [address] [place] [phone] Elroy [place] MD 1225 [facility] 2L DIV [place] [address] 12/06/2024 10:40 AM CDT Office Visit [facility] - Endocrinology [address] [place] [address], [place] [address] Marbin Flores MD 1201 [address] [facility] DIV OF [place]BD [place] [address] Niraj Turner MD 1225 [facility] 2L [place] [address] documented as of this encounter Procedures Procedure Name Priority Date/Time Associated Diagnosis Comments HOLD HLA SPECIMEN Routine 09/24/2023 3:2 7 PM CDT documented in this encounter Results * HOLD HLA SPECIMEN (09/24/2023 3:27 PM CDT) Hold HLA Specimen 09/30/2023 4:32 PM CDT [facility] Comment:The Hold HLA specime n has been received into the lab and will be held for 5 years at 4 degrees. Blood BLOOD SPECIMEN / Unknown 09/24/2023 3:27 PM CDT 09/30/2023 3:27 PM CDT Alan Davenport MD LAB - BLOOD BANK ORDERABLES F inal Result [facility]) [address] documented in this encounter Visit Diagnoses Not on filedocumented in this encounter Additional Health Concerns Infection Onset Date Last Indicated Resolved Time COVID-19 Under Investigation 09/13/2024 09/13/2024 09/13/2024 6:36 AM CDT documented as of this encounter Care Teams Canal Tender Relationship Specialty Start Date End Date Jeff Strickland MD [address] [place] [address] PCP - General 03/05/18 [place] [address] [address] Orthopedic Surgery 03/28/17 documented as of this encounter
--- OUTSIDE RECORDS SUMMARY | 2024-11-07 08:09 | XMS_ITS | Patient Health Record ---
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 He denies tobacco, alcohol, or illicit drug abuse The patient is retired. 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 He denies tobacco, alcohol, or illicit drug abuse The patient is retired. 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 He denies tobacco, alcohol, or illicit drug abuse The patient is retired. 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 He denies tobacco, alcohol, or illicit drug abuse The patient is retired. 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 He denies tobacco, alcohol, or illicit drug abuse The patient is retired. 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 He denies tobacco, alcohol, or illicit drug abuse The patient is retired. 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 He denies tobacco, alcohol, or illicit drug abuse The patient is retired. 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 He denies tobacco, alcohol, or illicit drug abuse The patient is retired. 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 He denies tobacco, alcohol, or illicit drug abuse The patient is retired. 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 He denies tobacco, alcohol, or illicit drug abuse The patient is retired. 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 He denies tobacco, alcohol, or illicit drug abuse The patient is retired. 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 He denies tobacco, alcohol, or illicit drug abuse The patient is retired. 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 He denies tobacco, alcohol, or illicit drug abuse The patient is retired. 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) Active confirmed Localized, primary osteoarthritis of the shoulder region (451879633) Problem Pain in left hip (M25.552) Active confirmed Pain of left hi p joint (finding) (052853034788625) Problem Spondylosis without myelopathy or radiculopathy, lumbar region (M47.816) Active confirmed Lumbosacral spondylosis without myelopathy (96047936) Problem Other intervertebral disc degeneration, lumbar region (M51.36) Active confirmed Degeneration of lumbar intervertebral disc (58288418) Problem Radiculopathy, lumbar region (M54.16) Active confirmed Lumbar radiculopathy (225272334) Problem Radiculopathy, lumbosacral region (M54.17) Active confirmed Lumbosacral radiculopathy (6844297) Problem Osseous stenosis of neural canal of lumbar region (M99.33) Active confirmed Spinal stenosis of lumbar region (68156533) Problem half-way (current) use of anticoagulants (Z79.01) Active confirmed Long-term curre nt use of anticoagulant (388171617) Problem Other intervertebral disc degeneration, lumbar region [...] Location Date Provider Diagnosis [facility] [address] [place] [address] 01/12/2024 Sergio Stynowick Radiculopathy, lumba r region M54.16 ; Radiculopathy, lumbosacral region M54.17 ; Other chest pain R07.89 ; Other intervertebral disc degeneration, lumbar region M51.36 ; 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 ; Spondylosis without myelopathy or radiculopathy, lumbar region M47.816 and half-way (current) use of anticoagulants Z79.01 [facility] [address] [place] [address] 01/19/2024 Sergio Stynowick Radiculopathy, lumba r region M54.16 ; Other intervertebral disc degeneration, lumbar region with discogenic back pain and lower extremity pain M51.362 and 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 [facility] [address] [place] [address] 02/03/2024 Sergio Stynowick Other chest pain R07.89 ; Pain in left knee M25.562 ; Radiculopathy, lumbar region M54.16 ; Other intervertebral disc degeneration, lumbar region M51.36 ; 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 ; Spondylosis without myelopathy or radiculopathy, lumbar region M47.816 and half-way (current) use of anticoagulants Z79.01 [facility] [address] [place] [address] 03/03/2024 Sergio Stynowick Pain in left knee M25.562 ; Primary osteoarthritis, unspecified shoulder M19.019 ; Other chest pain R07.89 ; Radiculopathy, lumbar region M54.16 ; Other intervertebral disc degeneration, lumbar region M51.36 ; 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 ; Spondylosis without myelopathy or radiculopathy, lumbar region M47.816 ; pattern assembler (current) use of anticoagulants Z79.01 ; Pain in right shoulder M25.511 and Pain in left shoulder M25.512 [facility] [address] [place] [address] 03/08/2024 Sergio Stynowick Primary osteoarthritis, unspecified shoulder M19.019 [facility] [address] [place] [address] 03/31/2024 Sergio Schmitzick ASSESSMENTS Encounter Date Diagnosis Assessment Notes Treatment Notes Treatment Clinical Notes Section Notes 03/08/2024 Primary osteoarthritis, unspecified shoulder (ICD-10 - M19.019) 03/03/2024 Pain in left knee (ICD-10 - [...] is agreeable to proceeding at this time. 02/03/2024 Other chest pain (ICD-10 - R07.89) [...] 08 for further evaluation with Dr. Myers 01/19/2024 Other intervertebral disc degeneration, lumbar region with discogenic back pain and lower extremity pain (ICD-10 - M51.362) 01/19/2024 Radiculopathy, lumbar region (ICD-10 - M54.16) The pt. was given an order for PT at Dr. Gallagher's office. 01/12/2024 Radiculopathy, lumbosacral region (ICD-10 - M54.17) 01/12/2024 Radiculopathy, lumbar region (ICD-10 - M54.16) [...] 02/03/2024 Radiculopathy, lumbar region (ICD-10 - M54.16) 01/12/2024 Other chest pain (ICD-10 - R07.89) 01/19/2024 Osseous stenosis of neural canal of lumbar region (ICD-10 - M99.33) 03/03/2024 Radiculopathy, lumbar region (ICD-10 - M54.16) 01/12/2024 Other intervertebral disc degeneration, lumbar region (ICD-10 - M51.36) 02/03/2024 Other intervertebral disc degeneration, lumbar region (ICD-10 - M51.36) 03/03/2024 Other intervertebral disc degeneration, lumbar region (ICD-10 - M51.36) 02/03/2024 Osseous stenosis of neural canal of lumbar region (ICD-10 - M99.33) 01/12/2024 Osseous stenosis of neural canal of lumbar region (ICD-10 - M99.33) 02/03/2024 Spondylosis without myelopathy or radiculopathy, lumbar region (ICD-10 - M47.816) 01/12/2024 Spondylosis without myelopathy or radiculopathy, lumbar region (ICD-10 - M47.816) 03/03/2024 Osseous stenosis of neural canal of lumbar region (ICD-10 - M99.33) 01/12/2024 pattern assembler (current) use of anticoagulants (ICD-10 - Z79.01) The patient was instructed to discontinue aspirin for 6 days prior to the procedure. I made the patient aware that he will be at an increased risk for a thromboembolic event during this time and he is willing to accept this risk. The patient was instructed to notify his primary care physician and/or ambulance driver to obtain clearance prior to discontinuing this medication. 02/03/2024 half-way (current) use of anticoagulants (ICD-10 - Z79.01) 03/03/2024 Spondylosis without myelopathy or radiculopathy, lumbar region (ICD-10 - M47.816) 03/03/2024 half-way (current) use of anticoagulants (ICD-10 - [...] Coverage End Date [employer] MEDICARE [address] [place] [address] [id number] GRACE INTERIANO Self - patient is the insured MEDICAL (GENERAL) HISTORY Medical History History ICD Code Hypertension Hypothyroidism Diabetes type 2 Gastroesophageal reflux disease (GERD) Renal cell cancer Chronic kidney disease stage 4 Sleep apnea CHF Surgical History Surgery Date(Month/Year) Right total knee arthroplasty 08/2015 Cholecystectomy Hernia repair 2019 Cardiac stent 07/2020
--- OUTSIDE RECORDS SUMMARY | 2024-11-07 08:09 | XMS_ITS | Encounter Summary ---
Author Organization [facility] Address [facility] [place] [address] Care Team Providers Care Precision Printing Worker Name Role Phone Deandre Bojorquez MD Unavailable [phone] Jeff Strickland MD Primary Care Provider [phone] Encounter Details Date Type Department Care Team (Late st Contact Info) Description 11/21/2023 Lab Requisition [facility] MAIN LAB [address] [place] [address] Alan Davenport MD [facility]1 [facility] [place] [address] Social History Tobacco Use Types Packs/Day Years Used Date Smoking Tobacco: Never Smokeless Tobacco: Never Alcohol Use Standard Drinks/Week Comments Not Currently 0 (1 standard drink = 0.6 oz pur e alcohol) socially in past Sex and Gender Information Value Date Recorded Sex Assigned at Male 07/02/2021 2:37 PM CDT Legal Sex Male 10:14 PM UNION CONTRACT REPRESENTATIVE Gender Identity Male 07/02/2021 2:37 PM CDT [...] Info) Description 11/12/2024 8:00 AM CDT Appointment [facility] IVR [address] [place] [address] Elroy [place] MD 1225 [facility] 2L [place] [address] 12/06/2024 10:40 AM CDT Office Visit [facility] - Endocrinology [address] [place] [address], [place] [address] Marbin Flores MD 1201 [address] [facility] DIV [place] [address] Niraj Turner MD [address] [facility] 2L [place] [address] documented as of this encounter Procedures Procedure Name Priority Date/Time Associated Diagnosis Comments HOLD HLA SPECIMEN Routine 11/18/2023 12: 16 PM CDT documented in this encounter Results * HOLD HLA SPECIMEN (11/18/2023 12:16 PM CDT) Hold HLA Specimen 11/21/2023 1:31 PM CDT [facility]) Comment:The Hold HLA specime n has been received into the lab and will be held for 5 years at 4 degrees. Blood BLOOD SPECIMEN / Unknown 11/18/2023 12:16 PM CDT 11/21/2023 12:17 PM CDT Alan Davenport MD LAB - BLOOD BANK ORDERABLES F inal Result [facility]) [address] documented in this encounter Visit Diagnoses Not on filedocumented in this encounter Additional Health Concerns Infection Onset Date Last Indicated Resolved Time COVID-19 Under Investigation 09/13/2024 09/13/2024 09/13/2024 6:36 AM CDT documented as of this encounter Care Teams Precision Printing Worker Relationship Specialty Start Date End Date Jeff Strickland MD [address] [place] [address] PCP - General 03/05/18 [place] [address] [address] Orthopedic Surgery 03/28/17 documented as of this encounter
--- OUTSIDE RECORDS SUMMARY | 2024-11-07 08:09 | XMS_ITS | Clinical Summary ---
Author Organization [facility] Address [address] [place] [address] Care Team Providers Care Sas Etl Developer Name Role Phone Jeff Strickland MD [...] mouth daily. Active nystatin-triamc inolone (MYCOLOG II) 516630-9.1 UNIT/GM-% Cream 5 Active ondansetron (ZOFRAN-ODT) 4 [...] 10/29/2024 Telephone [facility] - Cardiology [facility] #2 [place] [address] Suly Smith APRN, MAIL CLERK BILLS 10/15/2024 Telephone [facility] Cardiology [facility] #2 [place] [address] Hannah Goodman MD 10/14/2024 2:40 PM CDT Clinical Support [facility] #2 [place] [address] [facility] Card[facility] Dressing change (Primary Dx) Discharge [...] Medical Group - Cardiology - [facility]2 [facility] [place] [address] Hannah Goodman MD 2 [facility] NORY [facility] [address] [place] [address] 04/11/2025 11:30 AM EVENT ORGANIZER Office Visit [facility] - Cardiology - [place] #2 [place] [address] Maylin Cutler, 2 [facility] [address] [place] [address] Health Maintenance Due Date Last Done Comments [...] topic Insurance MEDICARE C [employer] Care Teams Sas Etl Developer Relationship Specialty Start Date End Date Jeff Strickland MD [address] [place] [address] PCP - General Family Medicine 10/14/24
--- OUTSIDE RECORDS SUMMARY | 2024-11-07 08:09 | XMS_ITS | Encounter Summary ---
Author Organization [facility] Address [address] [place] [address] Care Team Providers Care Roll Up Guider Operator Name Role Phone Deandre Bojorquez MD Unavailable [phone] Jeff Strickland MD Primary Care Provider Encounter Details Date Type Department Care Team (Late st Contact Info) Description 02/07/2023 Lab Requisition [facility] MAIN LAB [address] [place] [phone] Alan Davenport MD [facility] OF ABD [place] [address] Social History Tobacco Use Types Packs/Day Years Used Date Smoking Tobacco: Never Smokeless Tobacco: Never Alcohol Use Standard Drinks/Week Comments Not Currently 0 (1 standard drink = 0.6 oz pur e alcohol) socially in past Sex and Gender Information Value Date Recorded Sex Assigned at Male 07/02/2021 2:37 PM CDT Legal Sex Male 10:14 PM HYDRAULIC PRESS IN OPERATOR Gender Identity Male 07/02/2021 2:37 PM [...] Info) Description 11/12/2024 8:00 AM CDT Appointment [facility] IVR [address] [place] [phone] Elroy [place] MD 1225 [facility] 2L [place] [address] 12/06/2024 10:40 AM CDT Office Visit [facility] - Endocrinology [address] [place] [address], [place] [address] Marbin Flores MD 12[address] [facility] DIV OF ABD [place] [address] Niraj Turner MD 1225 [facility] 2L [place] [address] documented as of this encounter Procedures Procedure Name Priority Date/Time Associated Diagnosis Comments HOLD HLA SPECIMEN Routine 2023 7:5 8 AM HYDRAULIC PRESS IN OPERATOR documented in this encounter Results * HOLD HLA SPECIMEN (2023 7:58 AM HYDRAULIC PRESS IN OPERATOR) Hold HLA Specimen 02/07/2023 9:01 AM HYDRAULIC PRESS IN OPERATOR [facility] Comment:The Hold HLA specime n has been received into the lab and will be held for 5 years at 4 degrees. Blood BLOOD SPECIMEN / Unknown 2023 7:58 AM HYDRAULIC PRESS IN OPERATOR 02/07/2023 7:59 AM HYDRAULIC PRESS IN OPERATOR Alan Davenport MD LAB - BLOOD BANK ORDERABLES F inal Result [facility] [address] documented in this encounter Visit Diagnoses Not on filedocumented in this encounter Additional Health Concerns Infection Onset Date Last Indicated Resolved Time COVID-19 Under Investigation 09/13/2024 09/13/2024 09/13/2024 6:36 AM CDT documented as of this encounter Care Teams Roll Up Guider Operator Relationship Specialty Start Date End Date Jeff Strickland MD [address] [place] [address] PCP - General 03/05/18 [place] [address] [place] [address] Orthopedic Surgery 03/28/17 documented as of this encounter
--- OUTSIDE RECORDS SUMMARY | 2024-11-07 08:09 | XMS_ITS | Encounter Summary ---
Author Organization [facility] Address [facility]3 [place] [address] Care Team Providers Care Civil Engineer'S Aide Name Role Phone Deandre Bojorquez MD Unavailable [phone] Jeff Strickland MD Primary Care Provider [phone] Encounter Details Date Type Department Care Team (Late st Contact Info) Description 10/28/2023 Lab Requisition [facility] MAIN LAB [address] [place] [phone] Alan Davenport MD 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 2L Div [place] [address] documented as of this encounter Procedures Procedure Name Priority Date/Time Associated Diagnosis Comments HOLD HLA SPECIMEN Routine 10/22/2023 3:5 0 PM CDT documented in this encounter Results * HOLD HLA SPECIMEN (10/22/2023 3:50 PM CDT) Hold HLA Specimen 10/28/2023 5:00 PM CDT [facility] ([facility] Comment:The Hold HLA specime n has been received into the lab and will be held for 5 years at 4 degrees. Blood BLOOD SPECIMEN / Unknown 10/22/2023 3:50 PM CDT 10/28/2023 3:50 PM CDT Alan Davenport MD LAB - BLOOD BANK ORDERABLES F inal Result [facility] [address] documented in this encounter Visit Diagnoses Not on filedocumented in this encounter Additional Health Concerns Infection Onset Date Last Indicated Resolved Time COVID-19 Under Investigation 09/13/2024 09/13/2024 09/13/2024 6:36 AM CDT documented as of this encounter Care Teams Civil Engineer'S Aide Relationship Specialty Start Date End Date Jeff Strickland MD [address] [place] [address] PCP - General 03/05/18 [place] [address] [address] Orthopedic Surgery 03/28/17 documented as of this encounter
--- OUTSIDE RECORDS SUMMARY | 2024-11-07 08:09 | XMS_ITS | Encounter Summary ---
Author Organization [facility] Address [address] [place] [address] Phone Care Team Providers Care Customer Sales Advisor Name Role Phone Jeff Strickland MD Primary Care Provider Chan Nicholas MD Unavailable [phone] Alan Mccall MD Unavailable [phone] Lorna Lantigua MD Unavailable [phone] Juliette Savage RN Unavailable [phone] Pepito Haro MD PhD Unavailable Solange Guido MD Unavailable [phone] Letha Gil RN Unavailable Encounter Details Date Type Department Care Team (Late st Contact Info) Description 05/02/2021 Ophth Exam [facility] Medicine Ophthalmology [address] [place] [address] 1st [place] [phone] Corina Ventura MD PhD [address] [address] Social History Tobacco Use Types [...] on file Legal Sex Male 2:23 AM ACTIVITY ASSISTANT Gender Identity Not on file Sexual [...] COVID: Suspected 03/24/2023 03/24/2023 03/24/2023 5:45 PM ACTIVITY ASSISTANT COVID19 03/24/2023 03/24/2023 04/08/2023 3:06 AM ACTIVITY ASSISTANT COVID: Recovered Comment:Added based on recent COVID infection. 04/08/2023 04/10/2023 07/07/2023 3:06 AM C DT COVID: Suspected 04/10/2024 04/10/2024 04/11/2024 1:24 AM ACTIVITY ASSISTANT C. difficile suspected 04/11/2024 04/11/202404/11 1:21 PM ACTIVITY ASSISTANT documented as of this encounter Eye Exam [...] arcade Normal Periphery Normal Normal Care Teams Customer Sales Advisor Relationship Specialty Start Date End Date Jeff Strickland MD [address] [address] PCP - General Family Medicine 04/02/18 Chan Nicholas MD [address] [place] [address] [id number] Consulting Physician Gastroenterology 11/24/18 Alan Mccall MD [address] [place] [address] [address] Referring Physician Nephrology 11/24/18 Lorna Lantigua MD [facility] [address] [address] Consulting Physician Cardiology 11/24/18 07/22/23 Juliette Savage, RN [address] [place] [address] Nurse Navigator 06/04/21 03/14/22 Pepito Haro MD PhD [address] [place] [address] Consulting Physician Neurosurgery 12/03/22 Solange Guido MD [address] [facility] [address] [place] [address] Referring Physician Cardiovascular Disease 07/23/23 Letha Gil, RN 4590 [facility] 5300 [place] [address] [facility]patient Burrer Marker Axle 04/14/24 04/18/24 documented as of this encounter
--- OUTSIDE RECORDS SUMMARY | 2024-11-07 08:09 | XMS_ITS | Encounter Summary ---
Author Organization [facility] Address [facility]3 [place] [address] Care Team Providers Care Ve Teacher Name Role Phone Deandre Bojorquez MD Unavailable [phone] Jeff Strickland MD Primary Care Provider [phone] Encounter Details Date Type Department Care Team (Late st Contact Info) Description 07/31/2023 Lab Requisition [facility] MAIN LAB [address] [place] [phone] Alan Davenport MD [facility] [place] [address] Social History Tobacco Use Types Packs/Day Years Used Date Smoking Tobacco: Never Smokeless Tobacco: Never Alcohol Use Standard Drinks/Week Comments Not Currently 0 (1 standard drink = 0.6 oz pur e alcohol) socially in past Sex and Gender Information Value Date Recorded Sex Assigned at Male 07/02/2021 2:37 PM CDT Legal Sex Male 10:14 PM RN MEDICATION Gender Identity Male 07/02/2021 2:37 PM CDT [...] Info) Description 11/12/2024 8:00 AM CDT Appointment [facility] IVR [address] [place] [phone] Elroy Holcomb MD [address] [facility] 2L [place] [address] 12/06/2024 10:40 AM CDT Office Visit [facility] - Endocrinology [address] [place] [address], [place] [address] Marbin Flores MD [address] [facility] DIV [place] [address] Niraj Turner MD 1225 [facility] 2L [place] [address] documented as of this encounter Procedures Procedure Name Priority Date/Time Associated Diagnosis Comments HOLD HLA SPECIMEN Routine 07/23/2023 2:0 5 PM CDT documented in this encounter Results * HOLD HLA SPECIMEN (07/23/2023 2:05 PM CDT) Hold HLA Specimen 07/31/2023 3:32 PM CDT [facility] ([facility]) Comment:The Hold HLA specime n has been received into the lab and will be held for 5 years at 4 degrees. Blood BLOOD SPECIMEN / Unknown 07/23/2023 2:05 PM CDT 07/31/2023 2:06 PM CDT Alan Davenport MD LAB - BLOOD BANK ORDERABLES F inal Result [facility]) [address] documented in this encounter Visit Diagnoses Not on filedocumented in this encounter Additional Health Concerns Infection Onset Date Last Indicated Resolved Time COVID-19 Under Investigation 09/13/2024 09/13/2024 09/13/2024 6:36 AM CDT documented as of this encounter Care Teams Ve Teacher Relationship Specialty Start Date End Date Jeff Strickland MD [address] [place] [address] PCP - General 03/05/18 [place] [address] [address] Orthopedic Surgery 03/28/17 documented as of this encounter
--- OUTSIDE RECORDS SUMMARY | 2024-11-07 08:09 | XMS_ITS | Encounter Summary ---
Author Organization [facility] Address [facility]3 [place] [address] Care Team Providers Care Flaker Operator Name Role Phone Deandre Bojorquez MD Unavailable [phone] Jeff Strickland MD Primary Care Provider [phone] Encounter Details Date Type Department Care Team (Late st Contact Info) Description 05/29/2023 Lab Requisition [facility] MAIN LAB [address] [place] [phone] Alan Davenport MD 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 Gender Identity Male 07/02/2021 2:37 PM CDT [...] Info) Description 11/12/2024 8:00 AM CDT Appointment [facility] IVR [address] [place] [phone] Elroy Holcomb MD 1225 [facility] 2L [place] [address] 12/06/2024 10:40 AM CDT Office Visit [facility] - Endocrinology [address] [place] [address], [place] [address] Marbin Flores MD [address] [facility] DIV [place] [address] Niraj Turner MD 1225 [facility] 2L [place] [address] documented as of this encounter Procedures Procedure Name Priority Date/Time Associated Diagnosis Comments HOLD HLA SPECIMEN Routine 05/21/2023 9:2 4 AM CDT documented in this encounter Results * HOLD HLA SPECIMEN (05/21/2023 9:24 AM CDT) Hold HLA Specimen 05/29/2023 10:30 AM CDT [facility] ([facility]) Comment:The Hold HLA specime n has been received into the lab and will be held for 5 years at 4 degrees. Blood BLOOD SPECIMEN / Unknown 05/21/2023 9:24 AM CDT 05/29/2023 9:24 AM CDT Alan Davenport MD LAB - BLOOD BANK ORDERABLES F inal Result [facility] [address] documented in this encounter Visit Diagnoses Not on filedocumented in this encounter Additional Health Concerns Infection Onset Date Last Indicated Resolved Time COVID-19 Under Investigation 09/13/2024 09/13/2024 09/13/2024 6:36 AM CDT documented as of this encounter Care Teams Flaker Operator Relationship Specialty Start Date End Date Jeff Strickland MD [address] [place] [address] PCP - General 03/05/18 [place] [address] [address] Orthopedic Surgery 03/28/17 documented as of this encounter
--- OUTSIDE RECORDS SUMMARY | 2024-11-07 08:09 | XMS_ITS | Encounter Summary ---
Author Organization [facility] Address [address] [place] [address] Care Team Providers Care County Surveyor Name Role Phone Deandre Bojorquez MD Unavailable [phone] Jeff Strickland MD Primary Care Provider Encounter Details Date Type Department Care Team (Late st Contact Info) Description 02/04/2024 Lab Requisition [facility] MAIN LAB [address] [place] [phone] Alan Davenport MD [facility]1 [facility] OF ABD [place] [address] Social History Tobacco Use Types Packs/Day Years Used Date Smoking Tobacco: Never Smokeless Tobacco: Never Alcohol Use Standard Drinks/Week Comments Not Currently 0 (1 standard drink = 0.6 oz pur e alcohol) socially in past Sex and Gender Information Value Date Recorded Sex Assigned at Male 07/02/2021 2:37 PM CDT 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 DIV OF [place] [address] Niraj Turner MD 1225 [facility] 2L [place] [address] documented as of this encounter Procedures Procedure Name Priority Date/Time Associated Diagnosis Comments HOLD HLA SPECIMEN Routine 01/27/2024 3:2 3 PM HORSE IDENTIFIER documented in this encounter Results * HOLD HLA SPECIMEN (01/27/2024 3:23 PM HORSE IDENTIFIER) Hold HLA Specimen 02/04/2024 4:31 PM HORSE IDENTIFIER [facility] ([facility]) Comment:The Hold HLA specime n has been received into the lab and will be held for 5 years at 4 degrees. Blood BLOOD SPECIMEN / Unknown 01/27/2024 3:23 PM HORSE IDENTIFIER 02/04/2024 3:23 PM HORSE IDENTIFIER Alan Davenport MD LAB - BLOOD BANK ORDERABLES F inal Result [facility]) [address] documented in this encounter Visit Diagnoses Not on filedocumented in this encounter Additional Health Concerns Infection Onset Date Last Indicated Resolved Time COVID-19 Under Investigation 09/13/2024 09/13/2024 09/13/2024 6:36 AM CDT documented as of this encounter Care Teams County Surveyor Relationship Specialty Start Date End Date Jeff Strickland MD [address] [place] [address] PCP - General 03/05/18 [place] [address] [place] [address] Orthopedic Surgery 03/28/17 documented as of this encounter
--- OUTSIDE RECORDS SUMMARY | 2024-11-07 08:09 | XMS_ITS | Encounter Summary ---
Author Organization [facility] Address [facility] [place] [address] Care Team Providers Care Supervisor Stave Cutting Name Role Phone Deandre Bojorquez MD Unavailable [phone] Jeff Strickland MD Primary Care Provider [phone] Encounter Details Date Type Department Care Team (Late st Contact Info) Description 04/29/2024 Lab Requisition [facility] MAIN LAB [address] [place] [phone] Alan Davenport MD [facility]1 [facility] OF ABD [place]PL[place] [address] Social History Tobacco Use Types Packs/Day Years Used Date Smoking Tobacco: Never Smokeless Tobacco: Never Alcohol Use Standard Drinks/Week Comments Not Currently 0 (1 standard drink = 0.6 oz pur e alcohol) socially in past Sex and Gender Information Value Date Recorded Sex Assigned at Male 07/02/2021 2:37 PM CDT 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 Gender Identity Male 07/02/2021 2:37 PM [...] Info) Description 11/12/2024 8:00 AM CDT Appointment [facility] IVR [address] [place] [phone] Elroy Holcomb MD 1225 [facility] 2L DIV [place] [address] 12/06/2024 10:40 AM CDT Office Visit [facility] - Endocrinology [address] [place] [address], [place] [address] Marbin Flores MD 12[address] S [facility] DIV OF ABD [place] [address] Niraj Turner MD 1225 [facility] 2L [place] [address] documented as of this encounter Procedures Procedure Name Priority Date/Time Associated Diagnosis Comments HOLD HLA SPECIMEN Routine 04/27/2024 1:4 8 PM CDT documented in this encounter Results * HOLD HLA SPECIMEN (04/27/2024 1:48 PM CDT) Hold HLA Specimen 04/29/2024 3:02 PM CDT [facility] ([facility]) Comment:The Hold HLA specime n has been received into the lab and will be held for 5 years at 4 degrees. Blood BLOOD SPECIMEN / Unknown 04/27/2024 1:48 PM CDT 04/29/2024 1:49 PM CDT us Alan Davenport MD LAB - BLOOD BANK ORDERABLES F inal Result [facility] ([facility]) [address] documented in this encounter Visit Diagnoses Not on filedocumented in this encounter Additional Health Concerns Infection Onset Date Last Indicated Resolved Time COVID-19 Under Investigation 09/13/2024 09/13/2024 09/13/2024 6:36 AM CDT documented as of this encounter Care Teams Supervisor Stave Cutting Relationship Specialty Start Date End Date Jeff Strickland MD [address] [place] [address] PCP - General 03/05/18 [place] [address] [address] Orthopedic Surgery 03/28/17 documented as of this encounter
--- OUTSIDE RECORDS SUMMARY | 2024-11-07 08:09 | XMS_ITS | Encounter Summary ---
Author Organization [facility] Address [address] [place] [address] Care Team Providers Care Hand Candy Dipper Name Role Phone Deandre Bojorquez MD Unavailable [phone] Jeff Strickland MD Primary Care Provider [phone] Encounter Details Date Type Department Care Team (Late st Contact Info) Description 03/12/2024 Lab Requisition [facility] MAIN LAB [address] [place] [phone] Alan Davenport MD [facility]1 [facility] [place] [address] Social History Tobacco Use Types Packs/Day Years Used Date Smoking Tobacco: Never Smokeless Tobacco: Never Alcohol Use Standard Drinks/Week Comments Not Currently 0 (1 standard drink = 0.6 oz pur e alcohol) socially in past Sex and Gender Information Value Date Recorded Sex Assigned at Male 07/02/2021 2:37 PM CDT Legal Sex Male 10:14 PM VAMPER Gender Identity Male 07/02/2021 2:37 PM CDT [...] Info) Description 11/12/2024 8:00 AM CDT Appointment [facility] IVR [address] [place] [phone] Elroy Holcomb MD 1225 [facility] 2L [place] [address] 12/06/2024 10:40 AM CDT Office Visit [facility] - Endocrinology [address] [place] [address], [place] [address] Marbin Flores MD [address] [facility] DIV [place] [address] Niraj Turner MD 1225 [facility] 2L [place] [address] documented as of this encounter Procedures Procedure Name Priority Date/Time Associated Diagnosis Comments HOLD HLA SPECIMEN Routine 03/05/2024 1:4 0 PM VAMPER documented in this encounter Results * HOLD HLA SPECIMEN (03/05/2024 1:40 PM VAMPER) Hold HLA Specimen 03/12/2024 3:00 PM VAMPER [facility] ([facility]) Comment:The Hold HLA specime n has been received into the lab and will be held for 5 years at 4 degrees. Blood BLOOD SPECIMEN / Unknown 03/05/2024 1:40 PM VAMPER 03/12/2024 1:40 PM VAMPER Alan Davenport MD LAB - BLOOD BANK ORDERABLES F inal Result [facility] ([facility]) [address] documented in this encounter Visit Diagnoses Not on filedocumented in this encounter Additional Health Concerns Infection Onset Date Last Indicated Resolved Time COVID-19 Under Investigation 09/13/2024 09/13/2024 09/13/2024 6:36 AM CDT documented as of this encounter Care Teams Hand Candy Dipper Relationship Specialty Start Date End Date Jeff Strickland MD [address] [place] [address] PCP - General 03/05/18 [place] [address] [place] [address] Orthopedic Surgery 03/28/17 documented as of this encounter
--- OUTSIDE RECORDS SUMMARY | 2024-11-07 08:09 | XMS_ITS | Encounter Summary ---
Author Organization [facility] Address [facility]3 [place] [address] Care Team Providers Care School Photographer Name Role Phone Deandre Bojorquez MD Unavailable [phone] Jeff Strickland MD Primary Care Provider [phone] Encounter Details Date Type Department Care Team (Late st Contact Info) Description 03/30/2024 Lab Requisition [facility] MAIN LAB [address] [place] [address] Alan Davenport MD [facility]1 [facility] [place] [address] Social History Tobacco Use Types Packs/Day Years Used Date Smoking Tobacco: Never Smokeless Tobacco: Never Alcohol Use Standard Drinks/Week Comments Not Currently 0 (1 standard drink = 0.6 oz pur e alcohol) socially in past Sex and Gender Information Value Date Recorded Sex Assigned at Male 07/02/2021 2:37 PM CDT 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 Gender Identity Male 07/02/2021 2:37 PM CDT [...] Info) Description 11/12/2024 8:00 AM CDT Appointment [facility] IVR [address] [place] [phone] Elroy Holcomb MD 1225 [facility] 2L [place] [address] 12/06/2024 10:40 AM CDT Office Visit [facility] - Endocrinology [address] [place] [address], [place] [address] Marbin Flores MD [address]01 S [facility] DIV [place] [address] Niraj Turner MD 1225 [facility] 2L [place] [address] documented as of this encounter Procedures Procedure Name Priority Date/Time Associated Diagnosis Comments HOLD HLA SPECIMEN Routine 03/25/2024 2:5 1 PM TOOL CHASER documented in this encounter Results * HOLD HLA SPECIMEN (03/25/2024 2:51 PM TOOL CHASER) Hold HLA Specimen 03/30/2024 4:01 PM TOOL CHASER [facility] ([facility]) Comment:The Hold HLA specime n has been received into the lab and will be held for 5 years at 4 degrees. Blood BLOOD SPECIMEN / Unknown 03/25/2024 2:51 PM TOOL CHASER 03/30/2024 2:51 PM TOOL CHASER Alan Davenport MD LAB - BLOOD BANK ORDERABLES F inal Result [facility]) [address] documented in this encounter Visit Diagnoses Not on filedocumented in this encounter Additional Health Concerns Infection Onset Date Last Indicated Resolved Time COVID-19 Under Investigation 09/13/2024 09/13/2024 09/13/2024 6:36 AM CDT documented as of this encounter Care Teams School Photographer Relationship Specialty Start Date End Date Jeff Strickland MD [address] [place] [address] PCP - General 03/05/18 [place] [address] [place] [address] Orthopedic Surgery 03/28/17 documented as of this encounter
--- OUTSIDE RECORDS SUMMARY | 2024-11-07 08:10 | XMS_ITS | Clinical Summary ---
Author Organization [facility] Address [facility] [place] [address] Care Team Providers Care Produce Runner Name Role Phone Jeff Strickland MD Primary Care Provider [phone] Allergies Active Allergy Reactions Criticality Noted Date [...] by mouth nightly at bedtime. Active Multiple Vitamins-Jeannette als (PRESERVISION AREDS 2 OR) Take 1 [...] 0.6 oz pur e alcohol) [facility] Utilities Answer Date Recorded In the past 12 months has th e electric, gas, oil, or water [employer] threatened to shut off services in your [...] place to sleep or slept in a long-term (including now)? No 05/02/2023 Sex and Gender Information Value Date Recorded Sex Assigned at Not on file Legal Sex Male 10:10 AM LPN Gender Identity Not on file [...] discharge from hospital Lifestyle No Alice Rizzo, [facility] Insurance [employer] Advance Directives * Full Code (Latest Code Status on File) Date Activated Date Inactivated Comments 05/02/2023 12:46 AM 05/03/2023 12:26 PM Care Teams Produce Runner Relationship Specialty Start Date End Date Jeff Strickland MD [address] [place] [address] PCP - General FAMILY PRACTICE 02/22/23
--- OUTSIDE RECORDS SUMMARY | 2024-11-07 08:10 | XMS_ITS | Clinical Summary ---
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 08/18/2024 10:49 AM CDT 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) GLUCOSE - POINT OF CARE Routine 08/18/2024 10:15 AM CDT BASIC METABOLIC PANEL (CALCIUM TOTAL) ANDIE 08/18/2024 10:11 AM CDT 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) CBC W/O DIFFERENTIAL ANDIE 08/18/2024 10:01 AM CDT 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) HEPATITIS C ANTIBODY Routine 06/16/2024 4:15 PM CDT Pre-kidney transplant, listed ESRD (end stage renal disease) (HCC) 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, without long-term current use of insulin (HCC) Hypertension, unspecified type Oncocytoma Kidney stones SHABNAM on CPAP Coronary artery disease involving ewiiaapaayp coronary artery of ewiiaapaayp heart, unspecified whether angina present from Last [...] 71(H) <=35 ng/L 10/28/2024 3:13 AM CDT [facility] Delta Troponin I HS 10/28/2024 3:13 AM CDT [facility] Comment:Delta value intentio tito not calculated. Baseline to 1 hour specimen collection interval exceeded. Blood BLOOD SPECIMEN / Unknown Venipuncture / Unknown 10/28/2024 2:31 AM CDT 10/28/2024 2:37 AM CDT Savanna Mcfarlane MD LAB - CHEMISTRY ORDERABLES Fi nal Result Performing Organization Address [facility]/ZIP Co de Phone Number [address] [address], [place] [phone] * LACTIC ACID BLOOD REFLEX TO REPEAT (10/28/2024 2:31 AM CDT) Only the most recent of5 resultswithin the time period is included. Lactic Acid-Stat 1.9 <=2.0 mmol/L 10/28/2024 3:06 AM CDT [facility] Blood BLOOD SPECIMEN / Unknown Venipuncture / Unknown 10/28/2024 2:31 AM CDT 10/28/2024 2:37 AM CDT us Savanna Mcfarlane MD LAB - CHEMISTRY ORDERABLES Fi nal Result Performing Organization Address [facility] Co de Phone Number [address] [address], [place] [phone] * XR Chest 2Vw (10/27/2024 11:58 PM CDT) Only the most recent of4 resultswithin the time period is included. Anatomical Region Laterality Modality Chest Digital Radiogra phy 10/28/2024 12:0 2 AM CDT Narrative 10/28/2024 3:32 AM CDT PROCEDURE: XR CHEST 2VW, DATE/TIME OF EXAM: 10/27/2024 11:58 PM, LOCATION [facility] INDICATION: R07.9: Chest pain, [...] shoulders. > Dictated by Branden Jha MD, (interventional radiology technologist). > Dictated by [employer] Counterperson I, Blake Plasencia MD have personally reviewed and interpreted this examination/study. > Interpreting Provider: Blake Plasencia MD on 10/28/2024 3:32 AM Procedure Note Blake Plasencia MD - 10/28/2024 PROCEDURE: XR CHEST 2VW, DATE/TIME OF EXAM: 10/27/2024 11:58 PM, LOCATION [facility] INDICATION: R07.9: Chest pain, [...] shoulders. > Dictated by Branden Jha MD, (interventional radiology technologist). > Dictated by [employer] Counterperson I, Blake Plasencia MD have personally reviewed and interpreted this examination/study. > Interpreting Provider: Blake Plasencia MD on 10/28/2024 3:32 AM Savanna Mcfarlane MD DIAGNOSTIC IMAGING ORDERABLES Final Result * (ABNORMAL) TROPONIN-I HIGH SENSITIVE BASELINE + 1HR (10/27/2024 11:53 PM CDT) Only the most recent of8 resultswithin the time period is included. Troponin I High Sensitive 72(H) <=35 ng/L 10/28/2024 12:49 AM CDT [facility] Blood BLOOD SPECIMEN / Unknown Venipuncture / Unknown 10/27/2024 11:53 PM CDT 10/28/2024 12:12 AM CDT us Savanna Mcfarlane MD LAB - CHEMISTRY ORDERABLES Fi nal Result [facility] [address] [place] [address], [facility] [phone] * (ABNORMAL) CBC W AUTO DIFFERENTIAL (10/27/2024 11:53 PM CDT) Only the most recent of11 resultswithin the time period is included. WBC 7.8 4.0 - 10.7 x10E9/L 10/28/2024 12:26 AM [facility] RBC Count 3.31(L) 4.30 - 5.80 x10E12/L 10/28/2024 12:26 AM [facility] Hemoglobin 9.0(L) 13.3 - 17.5 g/dL 10/28/2024 12:26 AM [facility] Hematocrit 27.9(L) 38.7 - 51.1 % 10/28/2024 12:26 AM [facility] MCV 84.3 80.0 - 98.0 fL 10/28/2024 12:26 AM [facility] MCH 27.2 26.7 - 33.6 pg 10/28/2024 12:26 AM [facility] MCHC 32.3 31.7 - 36.3 g/dL 10/28/2024 12:26 AM [facility] RDW-CV 15.9(H) 11.3 - 14.8 % 10/28/2024 12:26 AM [facility] Platelet Count 187 150 - 420 x10E9/L 10/28/2024 12:26 AM [facility] MPV 10.2 7.8 - 11.4 fL 10/28/2024 12:26 AM [facility] Neutrophil % 67.0 41.0 - 74.0 % 10/28/2024 12:26 AM [facility] Lymphocyte % 16.4(L) 17.0 - 47.0 % 10/28/2024 12:26 AM [facility] Monocyte % 14.0(H) 3.0 - 11.0 % 10/28/2024 12:26 AM [facility] Eosinophil % 1.9 0.0 - 7.0 % 10/28/2024 12:26 AM [facility] Basophil % 0.1 0.0 - 1.6 % 10/28/2024 12:26 AM [facility] Immature Granulocytes % 0.6 0.0 - 1.0 % 10/28/2024 12:26 AM [facility] Neutrophil Absolute 5.23 1.60 - 7.50 x10E9/L 10/28/2024 12:26 AM [facility] Lymphocyte Absolute 1.28 1.00 - 4.40 x10E9/L 10/28/2024 12:26 AM [facility] Monocyte Absolute 1.09(H) 0.15 - 1.00 x10E9/L 10/28/2024 12:26 AM [facility] Eosinophil Absolute 0.15 0.00 - 0.60 x10E9/L 10/28/2024 12:26 AM [facility] Basophil Absolute 0.01 0.00 - 0.13 x10E9/L 10/28/2024 12:26 AM [facility] Blood BLOOD SPECIMEN / Unknown Venipuncture / Unknown 10/27/2024 11:53 PM CDT 10/28/2024 12:13 AM CDT us Savanna Mcfarlane MD LAB - HEMATOLOGY ORDERABLES F inal Result [facility] [address] [place] [address], [facility] [phone] * (ABNORMAL) COMPREHENSIVE METABOLIC PANEL (10/27/2024 11:53 PM CDT) Only the most recent of13 resultswithin the time period is included. BUN 34(H) 7 - 26 mg/dL 10/28/2024 12:45 AM [facility] Creatinine 7.86(H) 0.71 - 1.16 mg/dL 10/28/2024 12:45 AM [facility] Sodium 132(L) 136 - 145 mmol/L 10/28/2024 12:45 AM [facility] Potassium 3.5 3.5 - 4.5 mmol/L 10/28/2024 12:45 AM [facility] Chloride 95(L) 98 - 107 mmol/L 10/28/2024 12:45 AM [facility] CO2 25 22 - 29 mmol/L 10/28/2024 12:45 AM [facility] Glucose 104(H) 70 - 99 mg/dL 10/28/2024 12:45 AM [facility] Calcium 8.5 8.4 - 10.2 mg/dL 10/28/2024 12:45 AM [facility] Protein Total 5.6(L) 6.0 - 8.3 g/dL 10/28/2024 12:45 AM [facility] Albumin 2.2(L) 3.4 - 5.0 g/dL 10/28/2024 12:45 AM [facility] Bilirubin Total 0.3 0.2 - 1.2 mg/dL 10/28/2024 12:45 AM [facility] Alkaline Phosphatase 104 40 - 150 U/L 10/28/2024 12:45 AM [facility] ALT 56(H) 5 - 55 U/L 10/28/2024 12:45 AM [facility] AST 48(H) 5 - 34 U/L 10/28/2024 12:45 AM [facility] Anion Gap 12 6 - 16 10/28/2024 12:45 AM [facility] BUN/Creatinine Ratio 4(L) 7 - 23 10/28/2024 12:45 AM [facility] Osmolality Calculated 282 275 - 295 mOsm/kg 10/28/2024 12:45 AM [facility] Albumin/Globulin Ratio 0.6(L) 1.1 - 2.3 10/28/2024 12:45 AM [facility] eGFR by CKD-EPI 7(L) >=90 mL/min/1.7 3 m2 10/28/2024 12:45 AM CDT [facility] Comment:Estimated Glomerular Filtration Rate (eGFR) calculated using the CKD-EPI Creatinine Equation (2020), per the National Kidney Foundation and [place] [employer] recommendations. Blood BLOOD SPECIMEN / Unknown Venipuncture / Unknown 10/27/2024 11:53 PM CDT 10/28/2024 12:12 AM CDT Savanna Mcfarlane MD LAB - CHEMISTRY ORDERABLES Fi nal Result Performing Organization Address City/[facility]/ZIP Co de Phone Number [address] [address], [facility] [phone] * LIPASE BLOOD (10/27/2024 11:53 PM CDT) Only the most recent of3 resultswithin the time period is included. Lipase 41 8 - 78 U/L 10/28/2024 12:45 AM CDT [facility] Blood BLOOD SPECIMEN / Unknown Venipuncture / Unknown 10/27/2024 11:53 PM CDT 10/28/2024 12:12 AM CDT Narrative [facility] - 10/28/2024 12:45 AM CDT Lipase results from the Grow Alinity analyzer may not be comparable with other methodologies. Savanna Mcfarlane MD LAB - CHEMISTRY ORDERABLES Fi nal Result Performing Organization Address [facility] Co de Phone Number [address] [address], [place] [phone] * HLA ANTIBODY SCREEN LUM CLASS 2 SAB (10/27/2024 2:40 PM CDT) % PRA 0 11/04/2024 4:03 PM CDT [facility] ([facility]) Class 2 LUM SAB Moderate Risk DQ6 11/04/2024 4:03 PM CDT [facility] ([facility]) Class 2 SAB Test Date [id number] 11/04/2024 4:03 PM CDT [facility] ([facility]) Comment: Methodology - Luminex Bead-Based Immunoassay. This test was developed and its performance characteristics determined by the Located within [facility]. It has not been cleared or [...] high complexity clinical laboratory testing. CLIA ID# [id number] Performed at: [facility], [facility] [place] [address] Switchboard Operator Supervisor: Steven Gonzalez, Ph.D., D([facility]), Blood BLOOD SPECIMEN / Unknown No Charge Blood Draw / Unknown 10/27/2024 2:40 PM CDT 11/01/2024 2:41 PM CDT Alan Davenport MD LAB - BLOOD BANK ORDERABLES F inal Result [facility] ([facility]) [address] * HLA ANTIBODY SCREEN LUM CLASS 1 SAB (10/27/2024 2:40 PM CDT) % PRA 0 11/04/2024 4:[address] [facility] ([facility]) Class 1 SAB Test Date [id number] 11/04/2024 4:[address] [facility] ([facility]) Comment: Methodology - Luminex Bead-Based Immunoassay. This test was developed and its performance characteristics determined by the Located within [facility]. It has not been cleared or [...] high complexity clinical laboratory testing. CLIA ID# [id number] Performed at: [facility], [facility] [place] [address] Switchboard Operator Supervisor: Steven Gonzalez, Ph.D., D([facility]), Blood BLOOD SPECIMEN / Unknown No Charge Blood Draw / Unknown 10/27/2024 2:40 PM CDT 11/01/2024 2:41 PM CDT Alan Davenport MD LAB - BLOOD BANK ORDERABLES F inal Result [facility] ([facility]) [address] [place], [place] [address] * (ABNORMAL) PTH INTACT ([facility]) (10/21/2024 1:11 PM CDT) Only the most recent of2 resultswithin the time period is included. PTH Intact 316.8(H) 8.0 - 77.0 pg/mL 10/21/2024 1:56 PM CDT [facility] Blood BLOOD SPECIMEN / Unknown Lab Venipuncture / Unknown 10/21/2024 1:11 PM CDT 10/21/2024 1:23 PM CDT Becky Wilson MD LAB - CHEMISTRY ORDERABLES Fin al Result Performing Organization Address City/[facility]/ZIP Co de Phone Number [facility] [address] [place] [address], [facility] [phone] * LAB MISC TEST (10/21/2024 1:11 PM CDT) Test Name PHOSPHO-TAU 217 PLASMA 10/25/2024 12:29 PM CDT [facility] Test Result See Scanned Report 10/25/2024 12:29 PM CDT [facility] Comment Ref Lab [place] 10/25/2024 12:29 PM CDT [facility] Blood BLOOD SPECIMEN / Unknown Lab Venipuncture / Unknown 10/21/2024 1:11 PM CDT 10/21/2024 1:15 PM CDT Becky Wilson MD LAB SEND OUT Final Result [facility] [address] [place] [address] * MAGNESIUM BLOOD (10/21/2024 1:11 PM CDT) Only the most recent of14 resultswithin the time period is included. Magnesium 1.6 1.6 - 2.6 mg/dL 10/21/2024 1:49 PM CDT [facility] Blood BLOOD SPECIMEN / Unknown Lab Venipuncture / Unknown 10/21/2024 1:11 PM CDT 10/21/2024 1:20 PM CDT Becky Wilson MD LAB - CHEMISTRY ORDERABLES Fin al Result Performing Organization Address [facility] Co de Phone Number [address] [address], [place] [phone] * AMMONIA (10/21/2024 1:11 PM CDT) Ammonia 30 <=72 umol/L 10/21/2024 1:32 PM CDT [facility] Blood BLOOD SPECIMEN / Unknown Lab Venipuncture / Unknown 10/21/2024 1:11 PM CDT 10/21/2024 1:15 PM CDT Becky Wilson MD LAB - CHEMISTRY ORDERABLES Fin al Result Performing Organization Address [facility] Co de Phone Number [address] [address], [place] [phone] * CT Head Wo Contrast (10/19/2024 3:03 PM CDT) Only the most recent of4 resultswithin the time period is included. Anatomical Region Laterality Modality Head Computed Tomogra phy 10/19/2024 3:11 PM CDT Impressions 10/19/2024 3:41 PM CDT IMPRESSION: 1.No acute intracranial hemorrhage, territorial infarct, or significant mass effect. Report dictated by Saroj Linda MD, MD (interventional radiology technologist). > Dictated by [employer] Counterperson I, Raymundo Hanson MD have personally reviewed [...] effect. Report dictated by Saroj Linda MD, (interventional radiology technologist). > Dictated by [employer] Counterperson I, Raymundo Hanson MD have personally reviewed and interpreted this examination/study. > Interpreting Provider: Raymundo Hanson MD on 10/19/2024 3:41 PM [place] PA-C CT ORDERABLES Final Result * EKG 12-LEAD (10/19/2024 2:21 PM CDT) Only the most recent of6 resultswithin the time period is included. Ventricular Rate 64 BPM [facility]USE Atrial Rate 64 BPM [facility] MUSE P-R Interval 146 ms [facility]USE QRS Duration ms 96 ms H MUSE Q-T Interval ms 494 ms [facility] MUSE QTC Calculation (Bezet) 509 ms [facility] MUSE Calculated P [place] 69 degrees [facility] MUSE Calculated R [place] -63 degrees [facility] MUSE Calculated T [place] -90 degrees [facility] MUSE Interpretation EKG NORMAL SINUS RHYTHM LEFT ANTERIOR FASCICULAR BLOCK T WAVE ABNORMALITY, CONSIDER INFEROLATERAL ISCHEMIA PROLONGED QT ABNORMAL ECG . Confirmed by TSERING GOTTLIEB, DOUG ([id number]) on 10/23/2024 11:38:28 PM [facility] MUSE 10/19/2024 2:21 PM CDT 10/23/2024 11:38 PM CDT [facility] PA-C ECG ORDERABLES Edite d Result - Final [facility] MUSE * (ABNORMAL) B-TYPE NATRIURETIC PEPTIDE (10/17/2024 7:33 PM CDT) Only the most recent of3 resultswithin the time period is included. BNP 471(H) <100 pg/mL 10/17/2024 10:07 PM CDT [facility] Comment: A decision threshold of 100 pg/mL [...] LAB - CHEMISTRY ORDERABLES Fi nal Result [facility] [address] [place] [phone], [facility] [phone] * XR CHEST 1VW PORTABLE (10/09/2024 7:27 PM CDT) Only the most recent of2 resultswithin the time period is included. Anatomical Region Laterality Modality Chest Digital Radiogra phy 10/09/2024 10:4 9 PM CDT Narrative 10/10/2024 1:17 AM CDT PROCEDURE: XR CHEST 1VW PORTABLE, DATE/TIME OF EXAM: 10/09/2024 7:27 PM, LOCATION [facility] INDICATION: R06.02: Short of breath on exertion ADDITIONAL CLINICAL INFORMATION: Ordering Provider Reason For Exam: r/o effusion, pneumonia Technologist Note: Additional: COMPARISON: Chest x-ray from 10/07/2024. FINDINGS/IMPRESSION: There is no focal consolidation, pleural effusion, or pneumothorax.The cardiomediastinal silhouette is normal. No displaced fractures identified. Hardware projecting over thoracic spine. > Dictated by Otis Bocanegra MD (interventional radiology technologist). > Dictated by [employer] Counterperson I, Blake Plasencia MD have personally reviewed and interpreted this examination/study. > Interpreting Provider: Blake Plasencia MD on 10/10/2024 1:17 AM Procedure Note Blake Plasencia MD - 10/10/2024 PROCEDURE: XR CHEST 1VW PORTABLE, DATE/TIME OF EXAM: 10/09/2024 7:27PM, LOCATION [facility] INDICATION: R06.02: Short of breath on exertion ADDITIONAL CLINICAL INFORMATION: Ordering Provider Reason For Exam: r/o effusion, pneumonia Technologist Note: Additional: COMPARISON: Chest x-ray from 10/07/2024. FINDINGS/IMPRESSION: There is no focal consolidation, pleural effusion, or pneumothorax.The cardiomediastinal silhouette is normal. No displaced fracturesidentified. Hardware projecting over thoracic spine. > Dictated by Otis Bocanegra MD (interventional radiology technologist). > Dictated by [employer] Counterperson Reese, Blake Plasencia MD have personally reviewed and interpreted this examination/study. > Interpreting Provider: Blake Plasencia MD on 10/10/2024 1:17 AM Anjali Avelar [employer]ONE[employer] SUPPORT SPECIALIST DIAGNOSTIC IMAGING O RDERABLES Final Result * (ABNORMAL) BLOOD GASES ABBEY + COOX PANEL (10/09/2024 4:39 PM CDT) Only the most recent of2 resultswithin the time period is included. pH Venous 7.41 7.32 - 7.42 pH 10/09/2024 5:04 PM [facility] pO2 Venous 34(L) 35 - 40 mmHg 10/09/2024 5:04 PM [facility] pCO2 Venous 44 40 - 50 mmHg 10/09/2024 5:04 PM [facility] HCO3 Venous 27.9 20 - 30 mmol/L 10/09/2024 5:04 PM [facility] Base Excess Venous 2.9(H) -2.0 - 2.0 mmol/L 10/09/2024 5:04 PM [facility] Oxyhemoglobin Venous 56.8 % 09/18 5:04 PM [facility] Comment:A^Absorbance Error Deoxyhemoglobin (HHB) Venous % 42.6 % 10/09/2024 5:04 PM [facility] Comment:A^Absorbance Error Methemoglobin <0.8 0.0 - 2.0 % 10/09/2024 5:04 PM [facility] Comment:A^Absorbance Error Carboxyhemoglobin 0.6 0.0 - 2.0 % 2024 5:04 PM [facility] Comment:A^Absorbance Error O2 Content Venous 7.7 Interpret within clinical context ml/dL 10/09/2024 5:04 PM [facility] Hemoglobin by COOX 9.6(L) 12.0 - 17.6 g/dL 10/09/2024 5:04 PM [facility] Comment:A^Absorbance Error O2 Saturation Venous 57(L) >=70 % 09/18 5:04 PM [facility] Comment:A^Absorbance Error FI O2 Mixed Venous 21.0 % 2024 5:04 PM [facility] Blood BLOOD SPECIMEN / Unknown Venipuncture / Unknown 10/09/2024 4:39 PM CDT 10/09/2024 4:56 PM CDT Narrative [facility] - 10/09/2024 5:04 PM CDT Carboxyhemoglobin Normal Concentration: Non-smokers: 0-2%; Smokers: 0-9%; Toxic: >20% us Anjali Avelar [employer] SUPPORT SPECIALIST LAB - BLOOD GASES OR DERABLES Final Result [facility] [address] [place] [phone], [facility] [phone] * PHOSPHORUS BLOOD (10/09/2024 4:39 PM CDT) Only the most recent of8 resultswithin the time period is included. [facility] Phosphorus 4.9 2.8 - 5.1 mg/dL 10/09/2024 5:29 PM CDT [facility] Blood BLOOD SPECIMEN / Unknown Venipuncture / Unknown 10/09/2024 4:39 PM CDT 10/09/2024 4:58 PM CDT us Anjali Avelar [employer] SUPPORT SPECIALIST LAB - CHEMISTRY ORDE RABLES Final Result Performing Organization Address City/[facility]/ZIP Co de Phone Number [address] [address], [place] [phone] * (ABNORMAL) GLUCOSE - POINT OF CARE (10/09/2024 4:26 PM CDT) Only the most recent of55 resultswithin the time period is included. Glucose WB/POC 115(H) 70 - 99 mg/dL 10/09/2024 4:30 PM CDT [facility] Specimen Type Arterial/C apillary 10/09/2024 4:30 PM CDT [facility] Blood BLOOD SPECIMEN / Unknown 10/09/2024 4:26 PM CDT 10/09/2024 4:30 PM CDT us Provider Unknown LAB - POINT OF CARE ORDERABLES Final Result Performing Organization Address City/[facility]/ZIP Co de Phone Number [address] [address], [place] [phone] * (ABNORMAL) URINALYSIS REFLEX MICROSCOPIC REFLEX CULTURE (10/07/2024 6:16 PM CDT) Color UA Yellow Yellow, Straw 10/07/2024 6:39 PM CDT [facility] Clarity UA Ex. Turbid(A) Clear 10/07/2024 6:39 PM CDT [facility] Glucose UA Normal Normal 10/07/2024 6:39 PM CDT [facility] Bilirubin UA Negative Negative 10/07/2024 6:39 PM CDT [facility] Ketone UA Negative Negative 10/07/2024 6:39 PM CDT [facility] Specific [place] UA 1.015 1.005 - 1.030 10/07/2024 6:39 PM [facility] Blood UA 3+(A) Negative 10/07/2024 6:39 PM [facility] pH UA 6.0 5.0 - 8.0 10/07/2024 6:39 PM [facility] Protein UA 2+(A) Negative 10/07/2024 6:39 PM [facility] Urobilinogen UA Normal Normal mg/dL 10/07/2024 6:39 PM [facility] Nitrite UA Negative Negative 10/07/2024 6:39 PM [facility] Leukocyte Esterase UA 500 MOLLY/uL(A) Negative 10/07/2024 6:39 PM [facility] RBC UA 51-100(A) 0 - 5 # /hpf 10/07/2024 6:39 PM [facility] WBC UA >100(A) 0 - 5 # /hpf 10/07/2024 6:39 PM [facility] Bacteria UA 2+(A) None Seen 10/07/2024 6:39 PM [facility] Squamous Epithelial Cells None Seen 0 - 5 /hpf 10/07/2024 6:39 PM [facility] Transitional Epithelial Cell UA 0-2(A) None Seen /HPF 10/07/2024 6:39 PM [facility] Budding Yeast Moderate(A) None seen /hpf 10/07/2024 6:39 PM [facility] Reflex Status Culture to follow 10/07/2024 6:39 PM [facility] Urine URINE SPECIMEN OBTAINED VIA [employer] URINARY CATHETER / Unknown Collection / Unknown 10/07/2024 6:16 PM CDT 10/07/2024 6:19 PM CDT [facility] - 10/07/2024 6:39 PM CDT Richard Sylvester MD LAB - URINALYSIS ORDERABLES Kenna haider Result [facility] [address] [place] [address], [facility] [phone] * (ABNORMAL) CULTURE URINE (10/07/2024 6:16 PM CDT) Pathologist [facility] Culture Urine 50,000-100,000 CFU/mL Klebsiella pneumoniae(A) MUSHTAQ 10/09/2024 5:54 AM CDT [facility] Urine URINE SPECIMEN OBTAINED VIA [employer] [facility]IN[facility] CATHETER / Unknown Collection / Unknown 10/07/2024 6:16 PM CDT 10/07/2024 6:19 PM CDT Narrative [facility] - 10/09/2024 5:54 AM CDT Organism [...] UTIs, use alternative cefazolin susceptibility result above. us Richard Sylvester MD LAB - MICROBIOLOGY ORDERABLES Fi nal Result [facility] [address] [place] [address], [facility] [phone] * VAS Arterial Multilevel Le (10/05/2024 12:24 PM CDT) Anatomical Region Laterality Modality Intravascular Ul trasound 10/05/2024 11:3 4 AM CDT Narrative Procedure Note Elroy Holcomb MD - 10/05/2024 us Guy Messina MD VASCULAR LAB ORDERABLES Edit ed Result - Final * (ABNORMAL) HEMOGLOBIN A1C (09/25/2024 5:06 AM CDT) Hemoglobin A1c 5.8(H) <=5.6 % 09/25/2024 8:19 AM CDT [facility] Estimated Average Glucose 120 mg/dL 09/25/2024 8:19 AM CDT [facility] Comment: HbA1c Interpretation: Normal : < 5.7% Pre-diabetes: 5.7-6.4% Diabetes: Equal to or greater than 6.5% Test results diagnostic of diabetes should be repeated for confirmation. Treatment target values recommended by ADA and other clinical organizations should be used to evaluate metabolic control in patients. Reference: [place] [employer], Standards of Care in Diabetes [...] LAB - CHEMISTRY ORDERABLES F inal Result [facility] [address] [place] [address], [facility] [phone] * (ABNORMAL) RENAL FUNCTION PANEL (09/24/2024 7:53 PM CDT) Only the most recent of3 resultswithin the time period is included. BUN 42(H) 7 - 26 mg/dL 09/24/2024 8:47 PM [facility] Creatinine 12.22(H) 0.71 - 1.16 mg/dL 09/24/2024 8:47 PM [facility] Sodium 136 136 - 145 mmol/L 09/24/2024 8:47 PM [facility] Potassium 3.9 3.5 - 4.5 mmol/L 09/24/2024 8:47 PM [facility] Chloride 97(L) 98 - 107 mmol/L 09/24/2024 8:47 PM [facility] CO2 24 22 - 29 mmol/L 09/24/2024 8:47 PM [facility] Glucose 93 70 - 99 mg/dL 09/24/2024 8:47 PM [facility] Albumin 1.8(L) 3.4 - 5.0 g/dL 09/24/2024 8:47 PM [facility] Calcium 8.4 8.4 - 10.2 mg/dL 09/24/2024 8:47 PM [facility] Phosphorus 7.0(H) 2.8 - 5.1 mg/dL 09/24/2024 8:47 PM [facility] Anion Gap 15 6 - 16 09/24/2024 8:47 PM [facility] BUN/Creatinine Ratio 3(L) 7 - 23 09/24/2024 8:47 PM [facility] Osmolality Calculated 292 275 - 295 mOsm/kg 09/24/2024 8:47 PM [facility] eGFR by CKD-EPI 4(L) >=90 mL/min/1.7 3 m2 09/24/2024 8:47 PM [facility] Comment:Estimated Glomerular Filtration Rate (eGFR) calculated using the CKD-EPI Creatinine Equation (2020), per the National Kidney Foundation and [place] [employer] of Nephrology recommendations. Blood BLOOD SPECIMEN / Unknown Lab Venipuncture / Unknown 09/24/2024 7:53 PM CDT 09/24/2024 8:15 PM T Guy Messina MD LAB - CHEMISTRY ORDERABLES F inal Result Performing Organization Address City/[facility]/ZIP Co de Phone Number [address] [address], [facility] [phone] * TSH REFLEX FREE T4 (09/24/2024 12:02 PM CDT) TSH 1.567 0.350 - 4.940 uIU/mL 09/24/2024 12:57 PM CDT [facility] Blood BLOOD SPECIMEN / Unknown 09/24/2024 12:02 PM CDT 09/24/2024 12:18 PM CDT Alexis Rodrigez III, MD LAB - CHEMISTRY ORDERAB LES Final Result Performing Organization Address [facility]/ZIP Co de Phone Number [address] [address], [facility] [phone] * (ABNORMAL) VITAMIN B1 (09/24/2024 12:02 PM CDT) Pathologist [facility] Vitamin B1 Whole Blood 205(H) 70 - 180 nmol/L 09/27/2024 7:16 PM CDT [facility] ([facility]) Comment: INTERPRETIVE INFORMATION: Vitamin B1, Whole Blood This assay measures the concentration of thiamine diphosphate (TDP), the primary active form of vitamin B1. Approximately 90 percent of vitamin B1 present in whole blood is TDP. Thiamine and thiamine monophosphate, which comprise the remaining 10 percent, are not measured. This test was developed and its performance characteristics determined by [facility]. It has not been cleared or approved by the [place] Food and Drug Administration. This test was performed in a CLIA certified laboratory and is intended for clinical purposes. Performed By: [facility] [address] [place] [id number] Trench Shovel Operator: Mk Egan MD, PhD CLIA Number: [id number] Blood BLOOD SPECIMEN / Unknown 09/24/2024 12:02 PM CDT 09/24/2024 12:11 PM CDT Alexis Rodrigez III, MD LAB - CHEMISTRY ORDERAB LES Final Result Performing Organization Address City/[facility]/ZIP Co de Phone Number [facility] ([facility]) [address] [place] [address], [facility] * (ABNORMAL) VITAMIN B12 (09/24/2024 12:02 PM CDT) Vitamin B12 1,151(H) 213 - 816 pg/mL 09/24/2024 12:57 PM CDT [facility] Blood BLOOD SPECIMEN / Unknown 09/24/2024 12:02 PM CDT 09/24/2024 12:18 PM CDT us Alexis Rodrigez III, MD LAB - CHEMISTRY ORDERAB LES Final Result Performing Organization Address [facility]/ZIP Co de Phone Number [address] [address], [place] [phone] * (ABNORMAL) TROPONIN-I HIGH SENSITIVE (09/24/2024 5:08 AM CDT) Pathologist [facility] Troponin I High Sensitive 83(H) <=35 ng/L 09/24/2024 6:10 AM CDT [facility] Blood BLOOD SPECIMEN / Unknown Lab Venipuncture / Unknown 09/24/2024 5:08 AM CDT 09/24/2024 5:28 AM CDT us Jennifer Winn MD LAB - CHEMISTRY ORDERABLES F inal Result Performing Organization Address [facility] Co de Phone Number [address] [address], [place] [phone] * CT Lumbar Spine Wo Contrast (09/23/2024 [...] pelvis. Report dictated by Branden Jha MD (interventional radiology technologist) 09/23/2024 5:45 PM. > Dictated by [employer] Counterperson I, Jana Clark MD have personally reviewed and interpreted this examination/study. > Interpreting Provider: Jana Clark MD on 09/23/2024 6:29 PM Narrative 09/23/2024 6:29 PM CDT PROCEDURE: CT HEAD WO CONTRAST, CT LUMBAR SPINE WO CONTRAST, CT THORACIC SPINE WO CONTRAST, CT CERVICAL SPINE WO CONTRAST, DATE/TIME OF EXAM: 09/23/2024 5:32 PM, LOCATION [facility] INDICATION: W19.XXXA: Fall, initial encounter R41.82: Altered mental status, unspecified altered mental status type ADDITIONAL CLINICAL INFORMATION: Ordering Provider Reason For Exam: r/o bleed, fx (accession [id number]), r/o fx (accession [id number]), r/o fx (accession [id number]), r/o fx (accession [id number]) Technologist Note: None. Additional: 69 year old [...] DATE/TIME OF EXAM: 09/23/2024 5:32 PM, LOCATION [facility] INDICATION: W19.XXXA: Fall, initial encounter R41.82: Altered mental status, unspecified altered mental status type ADDITIONAL CLINICAL INFORMATION: Ordering Provider Reason For Exam: r/o bleed, fx (accession [id number]), r/o fx (accession [id number]), r/o fx (accession [id number]), r/o fx (accession [id number]) Technologist Note: None. Additional: 69 year old [...] pelvis. Report dictated by Branden Jha MD (interventional radiology technologist) 09/23/2024 5:45 PM. > Dictated by [employer] Counterperson I, Jana Clark MD have personally reviewed [...] pelvis. Report dictated by Branden Jha MD (interventional radiology technologist) 09/23/2024 5:45 PM. > Dictated by [employer] Counterperson Reese, Jana Clark MD have personally reviewed and interpreted this examination/study. > Interpreting Provider: Jana Clark MD on 09/23/2024 6:29 PM Narrative 09/23/2024 6:29 PM CDT PROCEDURE: CT HEAD WO CONTRAST, CT LUMBAR SPINE WO CONTRAST, CT THORACIC SPINE WO CONTRAST, CT CERVICAL SPINE WO CONTRAST, DATE/TIME OF EXAM: 09/23/2024 5:32 PM, LOCATION [facility] INDICATION: W19.XXXA: Fall, initial encounter R41.82: Altered mental status, unspecified altered mental status type ADDITIONAL CLINICAL INFORMATION: Ordering Provider Reason For Exam: r/o bleed, fx (accession [id number]), r/o fx (accession [id number]), r/o fx (accession [id number]), r/o fx (accession [id number]) Technologist Note: None. Additional: 69 year old [...] DATE/TIME OF EXAM: 09/23/2024 5:32 PM, LOCATION [facility] INDICATION: W19.XXXA: Fall, initial encounter R41.82: Altered mental status, unspecified altered mental status type ADDITIONAL CLINICAL INFORMATION: Ordering Provider Reason For Exam: r/o bleed, fx (accession [id number]), r/o fx (accession [id number]), r/o fx (accession [id number]), r/o fx (accession [id number]) Technologist Note: None. Additional: 69 year old male PMH as noted below who presents with fall. The patient is AO x 3 but slow to speech. Present is his today. Patient's states that he has been acting like this since thegin of August. States he had a history [...] pelvis. Report dictated by Branden Jha MD (interventional radiology technologist) 09/23/2024 5:45 PM. > Dictated by [employer] Counterperson I, Jana Clark MD have personally reviewed [...] pelvis. Report dictated by Branden Jha MD (interventional radiology technologist) 09/23/2024 5:45 PM. > Dictated by [employer] Counterperson I, Jana Clark MD have personally reviewed and interpreted this examination/study. > Interpreting Provider: Jana Clark MD on 09/23/2024 6:29 PM Narrative 09/23/2024 6:29 PM CDT PROCEDURE: CT HEAD WO CONTRAST, CT LUMBAR SPINE WO CONTRAST, CT THORACIC SPINE WO CONTRAST, CT CERVICAL SPINE WO CONTRAST, DATE/TIME OF EXAM: 09/23/2024 5:32 PM, LOCATION [facility] INDICATION: W19.XXXA: Fall, initial encounter R41.82: Altered mental status, unspecified altered mental status type ADDITIONAL CLINICAL INFORMATION: Ordering Provider Reason For Exam: r/o bleed, fx (accession [id number]), r/o fx (accession [id number]), r/o fx (accession [id number]), r/o fx (accession [id number]) Technologist Note: None. Additional: 69 year old [...] DATE/TIME OF EXAM: 09/23/2024 5:32 PM, LOCATION [facility] INDICATION: W19.XXXA: Fall, initial encounter R41.82: Altered mental status, unspecified altered mental status type ADDITIONAL CLINICAL INFORMATION: Ordering Provider Reason For Exam: r/o bleed, fx (accession [id number]), r/o fx (accession [id number]), r/o fx (accession [id number]), r/o fx (accession [id number]) Technologist Note: None. Additional: 69 year old [...] pelvis. Report dictated by Branden Jha MD (interventional radiology technologist) 09/23/2024 5:45 PM. > Dictated by [employer] Counterperson I, Jana Clark MD have personally reviewed [...] erosion. Report dictated by Branden Jha MD, (interventional radiology technologist). > Dictated by [employer] Counterperson I, Nicole Bernabe MD have personally reviewed and interpreted this examination/study. > Interpreting Provider: Nicole Bernabe MD on 09/24/2024 9:17 AM Narrative 09/24/2024 9:17 AM CDT PROCEDURE: XR FOOT LEFT 3VW OR MORE, DATE/TIME OF EXAM: 09/23/2024 5:34 PM, LOCATION [facility] INDICATION: W19.XXXA: Fall, initial [...] MORE, DATE/TIME OF EXAM: 09/23/2024 5:34PM, LOCATION [facility] INDICATION: W19.XXXA: Fall, initial [...] erosion. Report dictated by Branden Jha MD, (interventional radiology technologist). > Dictated by [employer] Counterperson I, Nicole Bernabe MD have personally reviewed and interpreted this examination/study. > Interpreting Provider: Nicole Bernabe MD on 09/24/2024 9:17 AM us Moon Lewis PA-C DIAGNOSTIC IMAGING ORDERABLES F inal Result * (ABNORMAL) C-REACTIVE PROTEIN (09/23/2024 4:52 PM CDT) Only the most recent of2 resultswithin the time period is included. C-Reactive Protein 1.6(H) <=0.5 mg/dL 09/23/2024 5:42 PM CDT [facility] Blood BLOOD SPECIMEN / Unknown Venipuncture / Unknown 09/23/2024 4:52 PM CDT 09/23/2024 4:56 PM CDT us Moon Lewis PA-C LAB - CHEMISTRY ORDERABLES Kenna l Result Performing Organization Address [facility]/ZIP Co de Phone Number [address] [address], [place] [phone] * (ABNORMAL) ERYTHROCYTE SEDIMENTATION RATE (09/23/2024 4:52 PM CDT) Only the most recent of2 resultswithin the time period is included. Erythrocyte Sedimentation Rate Westergren 116(H) 0 - 20 MM/HR 09/23/2024 5:21 PM CDT [facility] Blood BLOOD SPECIMEN / Unknown Venipuncture / Unknown 09/23/2024 4:52 PM CDT 09/23/2024 5:05 PM CDT Moon Lewis PA-C LAB - HEMATOLOGY ORDERABLES Fin al Result Performing Organization Address [facility] Co de Phone Number [address] [address], [place] [phone] * (ABNORMAL) DIFFERENTIAL MANUAL (09/23/2024 4:52 PM CDT) Only the most recent of3 resultswithin the time period is included. Neutrophil % 78(H) 41 - 74 % 09/23/2024 5:33 PM CDT [facility] Lymphocyte % 10(L) 17 - 47 % 09/23/2024 5:33 PM CDT [facility] Monocyte % 10 3 - 11 % 09/23/2024 5:33 PM CDT [facility] Eosinophil % 1 0 - 7 % 09/23/2024 5:33 PM CDT [facility] Metamyelocyte % 1(H) 0% % 5:33 PM CDT [facility] Neutrophil Absolute 8.66(H) 1.60 - 7.50 x10E9/L 09/23/2024 5:33 PM CDT [facility] Lymphocyte Absolute 1.11 1.00 - 4.40 x10E9/L 09/23/2024 5:33 PM CDT [facility] Monocyte Absolute 1.11(H) 0.15 - 1.00 x10E9/L 09/23/2024 5:33 PM [facility] Eosinophil Absolute 0.11 0.00 - 0.60 x10E9/L 09/23/2024 5:33 PM [facility] RBC Morphology REVIEWED 09/23/2024 5:33 PM [facility] Microcytosis MODERATE(A) (none) 09/23/2024 5:33 PM [facility] Blood BLOOD SPECIMEN / Unknown Venipuncture / Unknown 09/23/2024 4:52 PM CDT 09/23/2024 5:05 PM CDT us Moon Lewis PA-C LAB - HEMATOLOGY ORDERABLES Fin al Result [facility] [address] [place] [address], [facility] [phone] * (ABNORMAL) CBC W/O DIFFERENTIAL (09/16/2024 1:01 AM CDT) Only the most recent of10 resultswithin the time period is included. WBC 9.3 4.0 - 10.7 x10E9/L 09/16/2024 1:43 AM [facility] RBC Count 3.37(L) 4.30 - 5.80 x10E12/L 09/16/2024 1:43 AM [facility] Hemoglobin 9.5(L) 13.3 - 17.5 g/dL 09/16/2024 1:43 AM [facility] Hematocrit 28.3(L) 38.7 - 51.1 % 09/16/2024 1:43 AM [facility] MCV 84.0 80.0 - 98.0 fL 09/16/2024 1:43 AM [facility] MCH 28.2 26.7 - 33.6 pg 09/16/2024 1:43 AM [facility] MCHC 33.6 31.7 - 36.3 g/dL 09/16/2024 1:43 AM [facility] RDW-CV 15.7(H) 11.3 - 14.8 % 09/16/2024 1:43 AM [facility] Platelet Count 205 150 - 420 x10E9/L 09/16/2024 1:43 AM CDT [facility] MPV 10.3 7.8 - 11.4 fL 09/16/2024 1:43 AM CDT [facility] Blood BLOOD SPECIMEN / Unknown Lab Venipuncture / Unknown 09/16/2024 1:01 AM CDT 09/16/2024 1:40 AM CDT us Alexis Rodrigez III, MD LAB - HEMATOLOGY ORDERA BLES Final Result Performing Organization Address City/[facility]/ZIP Co de Phone Number [address] [address], [place] [phone] * VANCOMYCIN LEVEL RANDOM (09/15/2024 4:10 PM CDT) Only the most recent of3 resultswithin the time period is included. Vancomycin Random 31.2 Therapeutic Ranges not established for random specimens ug/mL 09/15/2024 6:00 PM CDT [facility] Blood BLOOD SPECIMEN / Unknown Lab Venipuncture / Unknown 09/15/2024 4:10 PM CDT 09/15/2024 4:51 PM CDT Narrative [facility] - 09/15/2024 6:00 PM CDT See institution protocol. us Aureliano Pierce MD LAB - CHEMISTRY ORDERAB LES Final Result Performing Organization Address City/[facility]/ZIP Co de Phone Number [address] [address], [place] [phone] * LACTIC ACID BLOOD (09/14/2024 3:32 PM CDT) Only the most recent of4 resultswithin the time period is included. Lactic Acid-Stat 2.0 <=2.0 mmol/L 09/14/2024 4:17 PM CDT [facility] Blood BLOOD SPECIMEN / Unknown Lab Venipuncture / Unknown 09/14/2024 3:32 PM CDT 09/14/2024 3:51 PM CDT us Alexis Rodrigez III, MD LAB - CHEMISTRY ORDERAB LES Final Result Performing Organization Address [facility] Co de Phone Number [address] [address], [facility] [phone] * (ABNORMAL) HGB HCT PANEL (09/14/2024 1:24 PM CDT) Only the most recent of2 resultswithin the time period is included. Hemoglobin 8.7(L) 13.3 - 17.5 g/dL 09/14/2024 1:41 PM CDT [facility] Hematocrit 25.6(L) 38.7 - 51.1 % 09/14/2024 1:41 PM CDT [facility] Blood BLOOD SPECIMEN / Unknown Venipuncture / Unknown 09/14/2024 1:24 PM CDT 09/14/2024 1:30 PM CDT us Alexis Rodrigez III, MD LAB - HEMATOLOGY ORDERA BLES Final Result Performing Organization Address [facility] Co de Phone Number [address] [address], [facility] [phone] * PATHOLOGY TISSUE (09/14/2024 11:45 AM CDT) Case Report Surgical Pathology Report Case: [id number] Authorizing Provider: Elroy Holcomb MD Collected: 09/14/2024 11:45 AM Ordering Location: [facility] Received: 09/14/2024 12:47 PM Pathologist: Charmaine Myrick MD Specimen: Toe, Left, Left Great Toe 09/16/2024 11:40 AM CDT [facility] Final Diagnosis Toe, left great, amputation (A): - Skin ulceration and necrosis - Acute osteomyelitis - Bone margin negative for acute inflammation - Skin and soft tissue margin appears viable 09/16/2024 11:40 AM CDT [facility] at 1140 CDT Microscopic Description and Comment Microscopic examination substantiates the diagnosis. 09/16/2024 11:40 AM [facility] Clinical History The patient is a 69-year-old man with first toe dry gangrene and history of PAD. 09/16/2024 11:40 AM [facility] Gross Description The requisition [...] hemorrhage. There are no additional gross lesions. Infrastructure Analyst sections are submitted as follows: A1-skin and soft tissue to resection margin, medial and dorsal surfaces A2-bony resection margin, decalcified A3-partial proximal cross-section with surrounding mummification, decalcified IKD 09/16/2024 11:40 AM [facility] Pathologist Location at [facility] 09/16/2024 11:40 AM [facility] Disclaimer The performance characteristics of all immunohistochemical and indirect immunofluorescence stains (if any) cited in this report were determined by the Histopathology Laboratory of [facility]. Some of these tests were developed by [...] the attending (teaching) pathologist. 09/16/2024 11:40 AM [facility] Embedded Images 09/16/2024 11:40 AM [facility] Amputation, Traumatic (Gross Only) (Toe, Left) 09/14/2024 11:45 AM CDT 09/14/2024 12:47 PM CDT Comment:Pre-op diagnosis: Toe gangrene (HCC) [I96] Elroy Holcomb MD LAB - PATHOLOGY/CYTOLOGY O RDERABLES Final Result [facility] Janneth[address] Curt Holley [facility] [place] [address], [facility] [phone] * Peripheral Nerve Block (09/14/2024 10:38 AM [...] fungus isolated MUSHTAQ 10/11/2024 8:05 AM CDT [facility] Fungus Stain No yeast or hyphae seen 10/11/2024 8:05 AM CDT [facility] Microbiology PERITONEAL DIALYSATE SPECIMEN / Unknown Collection / Unknown 09/13/2024 8:08 PM CDT 09/13/2024 8:10 PM CDT Alexis Rodrigez III, MD LAB - MICROBIOLOGY ORDE AZUCENA Final Result [facility] [address] [place] [address], [facility] [phone] * DIFFERENTIAL MANUAL FLUID (09/13/2024 8:08 PM CDT) Fluid Source Peritoneal 09/13/2024 9:03 PM CDT [facility] Body Fluid Total Cell Count 100 x10E6/L 09/13/2024 9:03 PM CDT [facility] Neutrophils Fluid Percent 11 % 09/13/2024 9:03 PM CDT [facility] Lymphocytes Fluid Percent 6 % 09/13/2024 9:03 PM CDT [facility] Macrophages Fluid Percent 79 % 09/13/2024 9:03 PM CDT [facility] Mesothelial Cells Fluid Percent 4 % 09/13/2024 9:03 PM CDT [facility] Fluid PERITONEAL FLUID / Unknown Collection / Unknown 09/13/2024 8:08 PM CDT 09/13/2024 8:10 PM CDT Narrative [facility] - 09/13/2024 9:03 PM CDT No reference ranges established for body fluid differential cell counts. The test results must be integrated into the clinical context for interpretation. Alexis Rodrigez III, MD LAB - BODY FLUID ORDERA BLES Final Result [facility] [address] [place] [address], [facility] [phone] * CULTURE FLUID+GRAM STAIN (09/13/2024 8:08 PM CDT) Culture No growth MUSHTAQ 09/17/2024 12:38 AM CDT [facility] Gram Stain Light Polymorphonuclear cells 09/17/2024 12:38 AM CDT [facility] Gram Stain No organisms seen 025 12:38 AM CDT [facility] Other PERITONEAL DIALYSATE SPECIMEN / Unknown Collection / Unknown 09/13/2024 8:08 PM CDT 09/13/2024 8:10 PM CDT Alexis Rodrigez III, MD LAB - MICROBIOLOGY PK ZENG Final Result Performing Organization Address City/[facility]/ZIP Co de Phone Number [facility] [address] [place] [address], [facility] [phone] * CULTURE ANAEROBE (09/13/2024 8:08 PM CDT) Culture No anaerobic organisms isolated MUSHTAQ 09/19/2024 8:26 AM CDT [facility] Microbiology PERITONEAL DIALYSATE SPECIMEN / Unknown Collection / Unknown 09/13/2024 8:08 PM CDT 09/13/2024 8:11 PM CDT Alexis Rodrigez III, MD LAB - MICROBIOLOGY ORDLien ZENG Final Result [facility] [address] [place] [address], [facility] [phone] * CELL COUNT W DIFFERENTIAL FLUID (09/13/2024 8:08 PM CDT) Fluid Source Peritoneal 09/13/2024 9:03 PM CDT [facility] Fluid Appearance CLEAR 09/13/2024 9:03 PM CDT [facility] Fluid Color YELLOW 09/13/2024 9:03 PM CDT [facility] Total Nucleated Cells Fluid 279 Reference Range Not Established x10E6/L 09/13/2024 9:03 PM CDT [facility] RBC Count Fluid <2,000 Reference Range Not Established x10E6/L 09/13/2024 9:03 PM CDT [facility] Fluid PERITONEAL FLUID / Unknown Collection / Unknown 09/13/2024 8:08 PM CDT 09/13/2024 8:10 PM CDT Narrative [facility] - 09/13/2024 9:03 PM CDT No reference ranges established for body fluid cell counts. Any reference ranges provided are derived from published literature. The test results must be integrated into the clinical context for interpretation. us Alexis Rodrigez III, MD LAB - BODY FLUID ORDERA BLES Final Result [address] [address], [facility] [phone] * VAS Bilateral Venous Duplex Le (09/13/2024 4:34 PM CDT) Anatomical Region Laterality Modality Lower Extremity Ultrasound 09/13/2024 4:18 PM CDT Narrative Procedure Note Lalit Castanon MD - 09/13/2024 us Alexis Rodrigez III, MD VASCULAR LAB ORDERABLES Edited Result - Final * SARS-COV-2 (COVID-19) RAPID (09/13/2024 6:02 AM CDT) COVID-19 PCR Not detected Not detected 09/14/19 25 6:36 AM CDT [facility] Microbiology SPECIMEN FROM NASOPHARYNGEAL STRUCTURE / Unknown Collection / Unknown 09/13/2024 6:02 AM CDT 09/13/2024 6:04 AM CDT Narrative [facility] - 09/13/2024 6:36 AM CDT [employer] Xpert Xpress SARS-COV-2 has been authorized by [...] LAB - MICROBIOLOGY ORDERABLE S Final Result [address] [address], [facility] [phone] * TRANSFUSE RED BLOOD CELL LEUKOREDUCED UNIT(S) [...] > Dictated by Sera Chowdhury Dr, MD (interventional radiology technologist). Terry Leigh MD have personally reviewed and interpreted this examination/study. > Interpreting Provider: Terry Ramos MD on 09/13/2024 9:42 AM Narrative 09/13/2024 9:42 AM CDT PROCEDURE: CT ANGIO AORTA FOR DISSECTION, DATE/TIME OF EXAM: 09/13/2024 12:28 AM, LOCATION [facility] INDICATION: R10.9: Abdominal pain, [...] DATE/TIME OF EXAM: 09/13/2024 12:28 AM, LOCATION [facility] INDICATION: R10.9: Abdominal pain, [...] > Dictated by Sera Chowdhury Dr, MD (interventional radiology technologist). I, Lien. Constantino Ramos MD have personally reviewed and interpreted this examination/study. > Interpreting Provider: Terry Ramos MD on 09/13/2024 9:42 AM Yuriy Lopez MD CT ORDERABLES Final Result * PREPARE (CROSSMATCH) RBC UNIT(S), 1 Units (09/12/2024 11:30 PM CDT) Unit Description AS1 LR PRBC [facility] Unit ABO O [facility] Unit Rh NEG [facility] Product Number R43 [facility] B[facility] Unit Donor # [id number] [facility] Unit Status transfused [facility] Product Code R2418A84 [facility] Blood Type Barcode 9500 [facility] Expiration Date S BLOOD BANK LAB Blood Bank BLOOD SPECIMEN / Unknown 09/12/2024 11:30 PM CDT 09/12/2024 11:37 PM CDT Yuriy Lopez MD LAB - BLOOD BANK ORDERABLES Final Result [facility] [address] [place] [address], [facility] [phone] * TYPE + SCREEN PANEL (09/12/2024 11:30 PM CDT) Antibody Screen NEG 12:16 AM CDT [facility] ABO Rh O NEG 09/13/2024 12:16 AM CDT [facility] Blood Bank BLOOD SPECIMEN / Unknown Venipuncture / Unknown 09/12/2024 11:30 PM CDT 09/12/2024 11:37 PM CDT Yuriy Lopez MD LAB - BLOOD BANK ORDERABLES Final Result [facility] [address] [place] [address], [facility] [phone] * CULTURE BLOOD (09/12/2024 10:00 PM CDT) Only the most recent of4 resultswithin the time period is included. Culture No growth day 5 [employer] 09/18/2024 1:30 AM CDT [facility] Blood PERIPHERAL BLOOD / Unknown Venipuncture / Unknown 09/12/2024 10:00 PM CDT 09/12/2024 10:21 PM CDT Yuriy Lopez MD LAB - MICROBIOLOGY ORDERABLE S Final Result Performing Organization Address City/[facility]/ZIP Co de Phone Number [facility] [address] [place] [address], [facility] [phone] * (ABNORMAL) BASIC METABOLIC PANEL (CALCIUM TOTAL) (09/08/2024 10:45 AM CDT) Only the most recent of6 resultswithin the time period is included. BUN 46(H) 7 - 26 mg/dL 09/08/2024 11:55 AM [facility] Creatinine 10.97(H) 0.71 - 1.16 mg/dL 09/08/2024 11:55 AM [facility] Sodium 142 136 - 145 mmol/L 09/08/2024 11:55 AM [facility] Potassium 4.4 3.5 - 4.5 mmol/L 09/08/2024 11:55 AM [facility] Chloride 104 98 - 107 mmol/L 09/08/2024 11:55 AM [facility] CO2 25 22 - 29 mmol/L 09/08/2024 11:55 AM [facility] Glucose 112(H) 70 - 99 mg/dL 09/08/2024 11:55 AM [facility] Calcium 8.9 8.4 - 10.2 mg/dL 09/08/2024 11:55 AM [facility] Anion Gap 13 6 - 16 09/08/2024 11:55 AM CDT [facility] BUN/Creatinine Ratio 4(L) 7 - 23 09/08/2024 11:55 AM CDT [facility] Osmolality Calculated 307(H) 275 - 295 mOsm/kg 09/08/2024 11:55 AM CDT [facility] eGFR by CKD-EPI 5(L) >=90 mL/min/1.7 3 m2 09/08/2024 11:55 AM CDT [facility] Comment:Estimated Glomerular Filtration Rate (eGFR) calculated using the CKD-EPI Creatinine Equation (2020), per the National Kidney Foundation and [place] [employer] recommendations. Blood BLOOD SPECIMEN / Unknown Lab Venipuncture / Unknown 09/08/2024 10:45 AM CDT 09/08/2024 11:26 AM CDT us Mellissa Freitas PA-C LAB - CHEMISTRY ORDERABLES Final Result [facility] [address] [place] [address], [facility] [phone] * VAS Bilateral Venous Mapping (09/07/2024 2:24 [...] thickening. Report dictated by Freddie Durham MD, ([employer] Counterperson). I, Junior Hurley MD have personally reviewed [...] thickening. Report dictated by Freddie Durham MD, ([employer] Counterperson). IJunior MD have personally reviewed and interpreted this examination/study. > Interpreting Provider: Junior Hurley MD on 56:26 AM us Charmaine Khalil MD CT ORDERABLES Final Result * (ABNORMAL) POTASSIUM WHOLE BLD (09/01/2024 3:54 PM CDT) Potassium Whole Blood 3.1(L) 3.5 - 5.5 mmol/L 09/01/2024 4:05 PM CDT [facility] Blood WHOLE BLOOD SPECIMEN / Unknown Venipuncture / Unknown 09/01/2024 3:54 PM CDT 09/01/2024 3:57 PM CDT us Jaqueline Crews STONEHAND-LAN SUPPORT SPECIALIST LAB - CHEMISTRY ORDERABL ES Final Result Performing Organization Address City/State/[facility] Co de Phone Number [address] [address], [facility] [phone] * CCL STAGED PERC CORONARY INTERVENTION, CCL [...] 6Fr 1.25Mm Diamondback catheter and using a Gw Vasc Diamondback 360 Viperwire Adv wire. 2 passes [...] - Recommend continuing [facility] Cardiology clinic f/u us Jaqueline Crews [employer]ONEHAND-LAN SUPPORT SPECIALIST CV CARDIAC CATH CUPID CT OCS Final Result * (ABNORMAL) IRON + TRANSFERRIN PANEL (08/19/2024 1:41 AM CDT) Pathologist [facility] Iron 40(L) 50 - 175 ug/dL 08/19/2024 2:17 AM CDT [facility] Transferrin 116(L) 174 - 382 mg/dL 08/19/2024 2:17 AM CDT [facility] Transferrin Saturation % 28 16 - 50 % 08/19/2024 2:17 AM CDT [facility] TIBC Calculated 145(L) 240 - 450 ug/dL 08/19/2024 2:17 AM [facility] Blood BLOOD SPECIMEN / Unknown Lab Venipuncture / Unknown 08/19/2024 1:41 AM CDT 08/19/2024 2:01 AM CDT us Hannah Goodman MD LAB - CHEMISTRY ORDERABLES F inal Result Performing Organization Address City/[facility]/ZIP Co de Phone Number [address] [address], [place] [phone] * (ABNORMAL) FERRITIN (08/19/2024 1:41 AM CDT) Ferritin 560(H) 22 - 275 ng/mL 08/19/2024 2:35 AM CDT [facility] Blood BLOOD SPECIMEN / Unknown Lab Venipuncture / Unknown 08/19/2024 1:41 AM CDT 08/19/2024 2:01 AM CDT us Hannah Goodman MD LAB - CHEMISTRY ORDERABLES F inal Result Performing Organization Address City/[facility]/ZIP Co de Phone Number [address] [address], [place] [phone] * VITAMIN D 25-HYDROXY (08/19/2024 1:23 AM CDT) Vitamin D, 25 Hydroxy 36.2 30.0 - 80.0 ng/mL 08/19/2024 2:24 AM CDT [facility] Comment: The recommendations [...] LAB - CHEMISTRY ORDERABLES F inal Result [facility] [address] [place] [address], [facility] [phone] * CCL PERIPHERAL ANGIOGRAM (08/18/2024 2:33 PM CDT) Anatomical Region Laterality Modality X-Ray Angiograph y Narrative 08/19/2024 2:24 PM CDT Left leg angiogram showed left AT severe diffuse disease with multiple subtotal occlusion and left PT severe diffuse disease with GAMER of distal PT without clear reconstitution. Successful [...] 0.018 CXI microcatheter with multiple wires(Command 18/command 14/Admitting Office Escort 200) to get to great toe branch of dorsalis pedis using [employer]ist [employer] [address]. - the AT-DP lesion was dilated with balloons mentioned in figure. - We turn our attention to PT. We crossed the PT GAMER with 0.018 CXI microcatheter with multiple wires (command 18, command 14, Admitting Office Escort 200) and able to go to lateral [...] using angiography. Left Posterior Tibial: Ost L DIRECTOR EPIDEMIOLOGY to Dist L DIRECTOR EPIDEMIOLOGY lesion is 100% stenosed. Stenosis was measured [...] 10% residual stenosis post intervention. Ost L DIRECTOR EPIDEMIOLOGY to Dist L DIRECTOR EPIDEMIOLOGY lesion: Angioplasty: Angioplasty independent of stent deployment [...] of Plavix. -recommend close follow up with newspaper vendor and follow up with me in clinic with JOSIANE/TBI. Hannah Goodman MD CV INVASIVE VASCULAR AND IR CUPID PROC Final Result * ACT LR - POCT ([facility]) (08/18/2024 2:08 PM CDT) Only the most recent of4 resultswithin the time period is included. Pathologist [facility] ACT LR 231 See result comments sec 08/19/2024 9:02 AM CDT [facility] Blood BLOOD SPECIMEN / Unknown 08/18/2024 2:08 PM CDT 08/19/2024 9:02 AM CDT Narrative [facility] - 08/19/2024 9:02 AM CDT ACT-LR Therapeutics ranges are: Cardiac tender labor = 200-300 seconds Sheath pull = ACT [...] MD LAB - COAGULATION ORDERABLES Final Result [address] [address], [facility] [phone] * HEPATITIS C ANTIBODY (06/16/2024 4:15 PM CDT) Hepatitis C Antibody Non-react sylvie Non-reac tive 06/16/2024 5:50 PM CDT [facility] Comment:Hepatitis C Antibody screen [...] Alan Davenport MD LAB - CHEMISTRY ORDERABLES [facility] Result [facility] [address] [place] [address], [facility] [phone] from Last 3 Months or Most Recently Relevant to Health Maintenance Insurance AET[employer] AETNA MEDICARE ADV AETNA MEDICARE ADV [facility] [address] * Guarantor: GRACE INTERIANO Account Type Relation to Patient Date of Phone Billing Address Personal/Family [address] [address] * Guarantor: GRACE INTERIANO Account Type Relation to Patient Date of Phone Billing Address Personal/Family [address] [address] [facility] [address] Advance Directives * Full Code (Latest Code [...] 3:16 PM 08/19/2024 4:36 PM Care Teams Screen Handler Relationship Specialty Start Date End Date Jeff Strickland MD [address] [place] [address] PCP - General 03/05/18 [place] [address] [address] Orthopedic Surgery 03/28/17
--- OUTSIDE RECORDS SUMMARY | 2024-11-07 08:10 | XMS_ITS | Clinical Summary ---
Author Organization [facility] Address [address] [place] [address] Phone Care Team Providers Care Weed Inspector Name Role Phone Jeff Strickland MD Primary Care Provider [phone] Allergies No known active allergies Medications pantoprazole [...] tablet Take 112 mcg by mouth daily animal anatomy teacher. Active aspirin (ANGELLA) 325 mg tablet Take 325 mg by mouth daily. Active Vit C-Vit V-Ekmnti-GdIh-L utein (PRESERVISION) 226 mg-200 unit -5 mg-0.8 [...] Comments Blood Pressure 167/77 02/04/2019 9:16 AM LOBSTER CATCHER Pulse 64 02/04/2019 9:16 AM LOBSTER CATCHER Temperature 36.5 C (97.7 F) 02/04/2019 9:16 AM LOBSTER CATCHER Respiratory Rate 16 02/04/2019 9:16 AM LOBSTER CATCHER Oxygen Saturation 97% 02/04/2019 9:16 AM LOBSTER CATCHER Inhaled Oxygen Concentration - - Weight 113.4 kg (250 lb) 02/04/2019 9:16 AM LOBSTER CATCHER Height 175.3 cm (5' 9) 02/04/2019 9:16 AM LOBSTER CATCHER Body Mass Index 36.92 02/04/2019 9:16 AM LOBSTER CATCHER Plan of Treatment Health Maintenance Due Date [...] ACCESS/TRUE BLUE PPO AETNA MEDICARE SUPPLEMENT PPO [facility] BLUE ACCESS/TRUE BLUE PPO Care Teams Weed Inspector Relationship Specialty Start Date End Date Jeff Strickland MD [address] [facility] [address] [place] [address] PCP - General Family Practice 01/01/19
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
--- OUTSIDE RECORDS SUMMARY | 2024-11-07 08:10 | XMS_ITS | Clinical Summary ---
Author Organization [facility] Address [address], [place] [address] Phone Care Team Providers Care Display Designer Name Role Phone Jeff Strickland MD Primary Care Provider [phone] Allergies No known active allergies Medications levothyroxine [...] tablet 3 0 Active Continuous Blood Gluc Leather Parts Matcher (FreeStyle Em [place]) device 1 each daily 0 Active Continuous Blood Gluc Sensor (FreeStyle Em Sensor System) misc 1 each once every 2 weeks 0 Active Lancets (OneTouch Delica Plus [id number]) misc OneTouch Delica Plus Lancet 33 gauge [...] 11/10/2019 Overview (12/17/2019): Kendall Carl 1955 Referring Supervisor Loading: Alan Mccall Dialysis Info: NOD GFR 13 Type: Time: (Not currently on dialysis) days Blood Type: O NEG Body mass index is 37.36 kg/m . ALERTS Surgical Supervisor: needs to establish Past Medical History: Diagnosis Date Arthropathy RA. Dr Strickland manages. 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 Becerra in [place]. CKD (chronic kidney disease), stage V Community acquired pneumonia 2018 [facility] hospitalized. Diabetes mellitus 20 years. Lantus pen. Esophageal reflux takes med Hypercholesteremia 5-10 yrs meds Hypertension takes meds Hypothyroidism meds 20 years Kidney stones 5-6 years ago had 2 in the same year. Malignancy right kidney 2012 Obstructive sleep apnea 3 years. [facility]. [facility] remember doctors name Renal cell [...] of this social science analyst that Kendall Gillris has several positive factors for Kidney transplant candidacy from a psychosocial perspective. Patient appears to have appropriate knowledge of illness. Patient has sufficient insurance coverage and stable financial situation for post transplant needs. No concerns regarding substance abuse, legal issues, or mental health needs. Patient has adequate support system and appropriate discharge plan. Plan: retail worker to provide supportive services as needed. Patient appears to be a reasonable candidate for transplant from a psychosocial perspective. -Post transplant arrangement forms are needed prior to being listed. -Updated toxicology results needed, per protocol Psychiatric Consult Recommended: No Transplant Revenue Accounting Manager: Joy Tam LCSW RD: 11/09/2019 BMI= [...] nephrectomy. 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 [id number] Immunizations Immunization Administration Dates Next Due Influenza [...] Insurance [employer] PM INTERFACED INSURANCE Care Teams Display Designer Relationship Specialty Start Date End Date Jeff Strickland MD [address] [facility] [address] [place] [address] PCP - General Internal Medicine 07/15/18
--- OUTSIDE RECORDS SUMMARY | 2024-11-07 08:10 | XMS_ITS | Encounter Summary ---
Author Organization [facility] Address [address] [place] [address] Care Team Providers Care Hand Drawer In Helper Name Role Phone Deandre Bojorquez MD Unavailable [phone] Jeff Strickland MD Primary Care Provider [phone] Encounter Details Date Type Department Care Team (Late st Contact Info) Description 09/24/2024 Results Follow-Up [facility] Early Admission Unit [address] [place] [id number] Angel Crook MD [address] [place] [address] Social History Tobacco Use Types Packs/Day Years [...] and heating? Not hard at all 09/24/2024 [employer] [place] of Occupat ional Health - Occupational Stress [...] any time in the past 12 m [facility], were you homeless or living in a skilled nursing (including now)? No 09/24/2024 Sex and Gender Information Value Date Recorded Sex Assigned at Male 07/02/2021 2:37 PM CDT Legal Sex Male 10:14 PM JERSEY KNITTER Gender Identity Male 07/02/2021 2:37 PM CDT [...] Info) Description 11/12/2024 8:00 AM CDT Appointment [facility] IVR [address] [place] [phone] Elroy Holcomb MD [address] [facility] 2L [place] [address] 12/06/2024 10:40 AM CDT Office Visit [facility] - Endocrinology [address] [facility], [place] [id number] Marbin Flores MD [address] [facility] DIV [place] [address] Niraj Turner MD [address] [facility] 2L [place] [address] documented as of this encounter Visit Diagnoses Not on filedocumented in this encounter Care Teams Hand Drawer In Helper Relationship Specialty Start Date End Date Jeff Strickland MD [address] [place] [address] PCP - General 03/05/18 [place] [address] [facility] [address] [address] Orthopedic Surgery 03/28/17 documented as of this encounter
--- OUTSIDE RECORDS SUMMARY | 2024-11-07 08:10 | XMS_ITS | Encounter Summary ---
Author Organization [facility] Healthcare Address [address] [place] [address] Care Team Providers Care Pelletizer Operator Name Role Phone Jeff Strickland MD Primary Care Provider Chan Nicholas MD Unavailable [phone] Alan Mccall MD Unavailable [phone] Pepito Haro MD PhD Unavailable Solange Guido MD Unavailable [phone] Encounter Details Date Type Department Care Team (Late st Contact Info) Description 07/26/2024 Orders Only [facility] Health Information Management [address] [place] [address] Scanning, Provider Social History Tobacco Use Types Packs/Day Years Used Date Smoking Tobacco: Never Smokeless Tobacco: Never Alcohol Use Standard Drinks/Week Comments Yes 0 (1 standard drink = 0.6 oz pur e alcohol) rarely [facility] Utilities Answer Date Recorded In the past 12 months has [employer] electric, gas, oil, or water company threatened [...] often do you attend chur ch or pentecostal services? Never 03/25/2023 Do you belong to [...] on file Legal Sex Male 2:23 AM RESIN SHAVER Gender Identity Not on file Sexual Orientation [...] on filedocumented in this encounter Care Teams Pelletizer Operator Relationship Specialty Start Date End Date Jeff Strickland MD [address] [place] [address] [address] PCP - General Family Medicine 04/02/18 Chan Nicholas MD [facility] [address] [address] Consulting Physician Gastroenterology 11/24/18 Alan Mccall MD [address] [place] [address] [address] Referring Physician Nephrology 11/24/18 Pepito Haro MD PhD [facility] [address] [place] [id number] Consulting Physician Neurosurgery 12/03/22 Solange Guido MD [address] [facility] [address] [place] [address] Referring Physician Cardiovascular Disease 07/23/23 documented as of this encounter
--- OUTSIDE RECORDS SUMMARY | 2024-11-07 08:10 | XMS_ITS | Patient Health Record ---
Author Organization [facility] Address [address] [place] [address] Care Team Providers Care Financial Institution Branch Manager Name Role Phone Trenton Hernandez Unavailable [phone] Reason For Referral No Information Medications Medication [...] UNIT)-FOLIC ACID 1 MG TABLET *Reorder from [employer] for eRx and Interaction Alerts* 02/26/2023 Active Azelastine HCl 137 MCG/SPRAY Solution Nasal 02/26/2023 Active Dilt-XR 240 MG Capsule Extended Release 24 Hour Oral 02/26/2023 Active Potassium Chloride ER 10 MEQ Tablet Extended Release Oral 02/26/2023 Active Mounjaro 2.5 MG/0.5ML Solution Pen-injector Subcutaneous *Reorder from [employer] for eRx and Interaction Alerts* 02/26/2023 Active Methocarbamol 500 MG Tablet Oral 02/26/2023 Active Levothyroxine Sodium 112 MCG Tablet Oral 02/26/2023 Active Atorvastatin Calcium 80 MG Tablet Oral 02/26/2023 Active Gabapentin 100 MG Capsule Oral 02/26/2023 Active SODIUM BICARBONATE 1,650 MG-CITRIC ACID 1,000 MG EFFERVESCENT TABLET *Reorder from [facility] for eRx and Interaction Alerts* 02/26/2023 Active Sevelamer Carbonate 800 MG Tablet Oral 02/26/2023 Active IPRATROPIUM BROMIDE 21 MCG (0.03 %) NASAL SPRAY *Reorder from [facility] for eRx and Interaction Alerts* [...] ADHESIVE PATCH, MEDICATED TOPICAL *Pick strength-form from [facility] for eRX* 02/26/2023 Active Amoxicillin-Pot Clavulanate 875-125 MG Tablet Oral 02/26/2023 Active Amoxicillin 500 MG Capsule Oral 02/26/2023 Active guanFACINE HCl ER 3 MG Tablet Extended Release 24 Hour Oral 02/26/2023 Active Tamsulosin HCl 0.4 MG Capsule Oral 02/26/2023 Active SEVELAMER HCL 800 MG TABLET *Reorder from [facility] for eRx and Interaction Alerts* 02/26/2023 Active LEVOTHYROXINE 112 MCG CAPSULE *Reorder from [facility] for eRx and Interaction Alerts* 02/26/2023 Active ULTRA-FINE SHORT PEN NEEDLE 31 gauge x 5/16 NEEDLE, DISPOSABLE MISCELLANEOUS *Reorder from [facility] for eRx and Interaction Alerts* 02/26/2023 Active Tylenol PM Extra Strength *Pick strength-form from [facility] for eRX* 02/26/2023 Active Mounjaro 5 MG/0.5ML Solution Pen-injector Subcutaneous *Reorder from [facility] for eRx and Interaction Alerts* [...] Date Coverage End Date Aetna [address] [place] [phone] [id number] GRACE INTERIANO Self - patient is the insured Medical (General) History Surgical History Surgery Date(Month/Year) Removal of gallbladder (61621) Cataract surgery (82667) 02/17/2013 Sinus surgery 02/17/2021 Cardiac stent 07/18/2021
--- OUTSIDE RECORDS SUMMARY | 2024-11-07 08:10 | XMS_ITS | Encounter Summary ---
Author Organization [facility] Healthcare Address [address] [place] [address] Care Team Providers Care Manufacturing Engineering Technologist Name Role Phone Jeff Strickland MD Primary Care Provider Chan Nicholas MD Unavailable [phone] Alan Mccall MD Unavailable Pepito Haro MD PhD Unavailable [phone] Solange Guido MD Unavailable [phone] Encounter Details Date Type Department Care Team (Late st Contact Info) Description 07/28/2024 Orders Only [facility] Health Information Management [address] [place] [address] Scanning, Provider Social History Tobacco Use Types Packs/Day Years Used Date Smoking Tobacco: Never Smokeless Tobacco: Never Alcohol Use Standard Drinks/Week Comments Yes 0 (1 standard drink = 0.6 oz pur e alcohol) rarely [facility] Utilities Answer Date Recorded In the past 12 months has [employer] electric, gas, oil, or water company threatened [...] often do you attend chur ch or alevism services? Never 03/25/2023 Do you belong to [...] on file Legal Sex Male 2:23 AM REPORTING CONSULTANT Gender Identity Not on file Sexual [...] on filedocumented in this encounter Care Teams Manufacturing Engineering Technologist Relationship Specialty Start Date End Date Jeff Strickland MD [facility] [address] [place] [id number] PCP - General Family Medicine 04/02/18 Chan Nicholas MD [facility] [address] [address] Consulting Physician Gastroenterology 11/24/18 Alan Mccall MD [facility] [address] [address] Referring Physician Nephrology 11/24/18 Pepito Haro MD PhD [address] [place] [address] Consulting Physician Neurosurgery 12/03/22 Solange Guido MD [address] [facility] [address] [place] [address] Referring Physician Cardiovascular Disease 07/23/23 documented as of this encounter
[2024-11-07 08:11] VITALS: PULSE 71; RESP 22; TEMP 36.8; O2SAT 100
--- OUTSIDE RECORDS SUMMARY | 2024-11-07 08:11 | XMS_ITS ---
Author Organization [facility] Address [address] [place] [id number] Care Team Providers Care Policy Checker Name Role Phone Jeff Strickland MD Primary Care Provider Chan Nicholas MD Unavailable Alan Mccall MD Unavailable Pepito Haro MD PhD Unavailable Solange Guido MD Unavailable [phone] Dialysis Access Sites Type Status Location Placement [...] both eyes EGFR Routine 04/13/2024 5:06 AM SECONDARY SPANISH TEACHER HEMOGLOBIN A1C STAT 04/10/2024 11:41 PM SECONDARY SPANISH TEACHER LIPID PANEL STAT 04/10/2024 11:41 PM SECONDARY SPANISH TEACHER from Last 3 Months or Most [...] 300 + = 14 units Active FA-vit Hqkqm-C-owbk-vitamin D3 (Dialyvite 800-Ultra D) 0.8-2,000 mg-unit tablet [...] total) by mouth 06/04/19 25 Active vitamins A,C,T-uzmd-qdfmch (PreserVision AREDS) 4,296 mcg-226 mg-90 mg capsule [...] damage Assessment & Plan (03/09/2024 6:25 PM SECONDARY SPANISH TEACHER): Vision OD trends mild improvement, though [...] We discussed that genetic results would not warp changer. Given we have exhausted available treatment [...] 03/26/2021 Assessment & Plan (03/26/2021 1:17 PM SECONDARY SPANISH TEACHER): Enlarged mild sella turcica on a [...] units Assessment & Plan (03/26/2021 1:17 PM SECONDARY SPANISH TEACHER): Chronic, uncontrolled, improving A1c today 7.7 [...] WNL Assessment & Plan (03/26/2021 1:16 PM SECONDARY SPANISH TEACHER): Pt currently on Levothyroxine 112 mcg [...] 11/18/2018 Assessment & Plan (01/21/2019 2:02 PM SECONDARY SPANISH TEACHER): Symptomatic. Will request for esophageal manometry. [...] well Assessment & Plan (03/26/2021 1:16 PM SECONDARY SPANISH TEACHER): On statin therapy Tolerating well Last [...] nephrectomy. 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 [id number] Immunizations Immunization Administration Dates Next Due Hep [...] oz pur e alcohol) rarely [facility] [employer] Answer Date Recorded In the past 12 months has [employer], gas, oil, or water [employer] threatened to shut off services in your [...] often do you attend chur ch or restorationist services? Never 03/25/2023 Do you belong to any clubs o r organizations such as taoism groups, unions, fraternal or athletic groups, or [...] on file Legal Sex Male 2:23 AM SECONDARY SPANISH TEACHER Gender Identity Not on file Sexual [...] CDT Respiratory Rate 16 04/13/2024 8:33 AM SECONDARY SPANISH TEACHER Oxygen Saturation 98% 04/13/2024 8:33 AM SECONDARY SPANISH TEACHER Inhaled Oxygen Concentration - - Weight [...] Selwyn Wong M.D. LC: MARC Report ID: [id number] Reading Location: [id number] Procedure Note Dolores Wong MD - 10/12/2024 EXAM DESCRIPTION: MRI BRAIN WO CONTRAST REASON FOR STUDY: other symptoms and signs involving cognitive functionsand awareness Cognitive changes, confusion, worse over that last several weeks, noinjury or trauma but patient states he has had several surgeries recently TECHNIQUE: Multiplanar imaging includes non-contrasted T1, T2, FLAIR, and diffusion with ADC map sequences. Additional sequence(s) sensitive HashTip products. Images stored on PACS. COMPARISON: MRI [...] Selwyn Wong M.D. LC: MARC Report ID: [id number] Reading Location: [id number] us Provider Transcribed Order IMG MRI PROCEDURES [...] Result * (ABNORMAL) eGFR (04/13/2024 5:06 AM SECONDARY SPANISH TEACHER) eGFR 5(L) >=60 mL/min/1. 73 m2 [...] reviewed 2020. Blood 04/13/2024 5:0 6 AM SECONDARY SPANISH TEACHER 04/13/2024 5:31 AM SECONDARY SPANISH TEACHER us Saul Engle MD LAB BLOOD ORDERABLES Final Resul t [facility] Department of Laboratories [place], [place] [id number] * (ABNORMAL) Lipid panel (04/10/2024 11:41 PM SECONDARY SPANISH TEACHER) Cholesterol 145 30 - 199 mg/dL [...] on 2017. Triglycerides 453(H) <=149 mg/dL [facility] Comment: Interpretive Data Ages < [...] revised on 2017. HDL 22(L) >=40 mg/dL [facility] Comment: Interpretive Data Ages < [...] on 2017. LDL, calculated See Comment <=129 [facility] Comment: Unable to calculate LDL [...] on 2023. Non-HDL Cholesterol 123 mg/dL [facility] Comment: Interpretive Data Ages < [...] on 2017. Chol/HDL ratio 7 [facility] Blood 04/10/2024 11:4 1 PM SECONDARY SPANISH TEACHER 04/10/2024 11:55 PM SECONDARY SPANISH TEACHER us Nicole Boo MD LAB BLOOD ORDERABLES Final Result [facility] Department [place] [address] from Last 3 Months or Most Recently Relevant to Health Maintenance
--- OUTSIDE RECORDS SUMMARY | 2024-11-07 08:11 | XMS_ITS | Encounter Summary ---
Author Organization [facility] Address [address] [place] [address] Care Team Providers Care Supervisor Carbon Electrodes Name Role Phone Deandre Bojorquez MD Unavailable Jeff Strickland MD Primary Care Provider [phone] Encounter Details Date Type Department Care Team (Late st Contact Info) Description 06/25/2024 Lab Requisition [facility] MAIN LAB [address] [place] [phone] Alan Davenport MD 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 Gender Identity Male 07/02/2021 2:37 PM CDT [...] Info) Description 11/12/2024 8:00 AM CDT Appointment [facility] IVR [address] [place] [phone] Elroy Holcomb MD [address] [facility] 2L [place] [address] 12/06/2024 10:40 AM CDT Office Visit [facility] - Endocrinology [address] [place] [address], [place] [address] Marbin Flores MD [address] [facility] DIV [place] [address] Niraj Turner MD [address] [facility] 2L [place] [address] documented as of this encounter Procedures Procedure Name Priority Date/Time Associated Diagnosis Comments HOLD HLA SPECIMEN Routine 06/22/2024 11: 05 AM CDT documented in this encounter Results * HOLD HLA SPECIMEN (06/22/2024 11:05 AM CDT) Hold HLA Specimen 06/25/2024 12:32 PM CDT [facility] Comment:The Hold HLA specime n has been received into the lab and will be held for 5 years at 4 degrees. Blood BLOOD SPECIMEN / Unknown 06/22/2024 11:05 AM CDT 06/25/2024 11:05 AM CDT Alan Davenport MD LAB - BLOOD BANK ORDERABLES F inal Result [facility] [address] documented in this encounter Visit Diagnoses Not on filedocumented in this encounter Additional Health Concerns Infection Onset Date Last Indicated Resolved Time COVID-19 Under Investigation 09/13/2024 09/13/2024 09/13/2024 6:36 AM CDT documented as of this encounter Care Teams Supervisor Carbon Electrodes Relationship Specialty Start Date End Date Jeff Strickland MD [address] [place] [address] PCP - General 03/05/18 [place] [address] [address] Orthopedic Surgery 03/28/17 documented as of this encounter
--- OUTSIDE RECORDS SUMMARY | 2024-11-07 08:11 | XMS_ITS ---
Author Organization [facility] Address [address] [place] [address] Care Team Providers Care Candy Separator Enrobing Name Role Phone Jeff Strickland MD Primary Care Provider Chan Nicholas MD Unavailable [phone] Alan Mccall MD Unavailable [phone] Pepito Haro MD PhD Unavailable [phone] Solange Guido MD Unavailable [phone] Active Problems Problem Noted Date Diagnosed Date [...] damage Assessment & Plan (03/09/2024 6:25 PM COAT PRESSER): Vision OD trends mild improvement, though still [...] 03/26/2021 Assessment & Plan (03/26/2021 1:17 PM COAT PRESSER): Enlarged mild sella turcica on a routine [...] units Assessment & Plan (03/26/2021 1:17 PM COAT PRESSER): Chronic, uncontrolled, improving A1c today 7.7 % [...] WNL Assessment & Plan (03/26/2021 1:16 PM COAT PRESSER): Pt currently on Levothyroxine 112 mcg oral [...] 11/18/2018 Assessment & Plan (01/21/2019 2:02 PM COAT PRESSER): Symptomatic. Will request for esophageal manometry. Continue [...] well Assessment & Plan (03/26/2021 1:16 PM COAT PRESSER): On statin therapy Tolerating well Last lipid [...] nephrectomy. 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 [id number] Current Treatment and Therapy Plans No current [...] were not included. Kendall Carl 1955 Referring Video Game Technician: Alan Mccall Dialysis Info: NOD GFR 13 Type: Time: (Not currently on dialysis) days Blood Type: O NEG Body mass index is 37.36 kg/m . ALERTS Farm Agent: needs to establish Past Medical History: Diagnosis Date Arthropathy RA. Dr Strickland manages. CHF (congestive heart failure) 2 yrs ago Nursing Specialist is Dr. Becerra in [place]. CKD (chronic kidney disease), stage V Community acquired pneumonia 2018 [facility] hospitalized. Diabetes mellitus 20 years. Lantus pen. Esophageal reflux takes med Hypercholesteremia 5-10 yrs meds Hypertension takes meds Hypothyroidism meds 20 years Kidney stones 5-6 years ago had 2 in the same year. Malignancy right kidney 2012 Obstructive sleep apnea 3 years. [facility]. Cannont remember doctors name Renal cell [...] support system and appropriate discharge plan. Plan: machine clothing worker to provide supportive services as needed. Patient appears to be a reasonable candidate for transplant from a psychosocial perspective. -Post transplant arrangement forms are needed prior to being listed. -Updated toxicology results needed, per protocol Psychiatric Consult Recommended: No Transplant Cleaning Custodian: Joy Tam LCSW RD: 11/09/2019 BMI= 36.2, [...] 11/18/201803/25 Assessment & Plan (01/21/2019 2:02 PM COAT PRESSER): The pain is persistent. The patient described [...] has had extensive cardiac workup by the environmental educator including coronary angiogram. He has chest pain [...]
--- OUTSIDE RECORDS SUMMARY | 2024-11-07 08:13 | XMS_ITS | Encounter Summary ---
Author Organization [facility] Address [address] [place] [address] Care Team Providers Care Clinical Documentation Consultant Name Role Phone Deandre Bojorquez MD Unavailable [phone] Jeff Strickland MD Primary Care Provider [phone] Encounter Details Date Type Department Care Team (Late st Contact Info) Description 09/10/2024 Telephone [facility] - Centralized Scheduling [facility] [place] [address] Niraj Turner MD [facility] [place] [address] Social History Tobacco Use Types [...] and heating? Not hard at all 09/14/2024 [facility] [place] of Occupat [facility] - Occupational Stress Questionnaire Answer [...] you homeless or living in a senior living (including now)? 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 Gender Identity Male 07/02/2021 2:37 PM [...] 0 09/13/2024 7:52 PM CDT Marie Og, RN * Is person deaf or have [...] Description 11/12/2024 8:00 AM CDT Appointment [facility] IVR [address] [place] [phone] Elroy Holcomb MD [address] [facility] 2L [place] [address] 12/06/2024 10:40 AM CDT Office Visit [facility] - Endocrinology [address] [facility], [place] [phone] Marbin Flores MD [address] [facility] DIV [place] [address] Niraj Turner MD [address] [facility] 2L [place] [address] documented as of this encounter Visit Diagnoses Not on filedocumented in this encounter Additional Health Concerns Infection Onset Date Last Indicated Resolved Time COVID-19 Under Investigation 09/13/2024 09/13/2024 09/13/2024 6:36 AM CDT documented as of this encounter Care Teams Clinical Documentation Consultant Relationship Specialty Start Date End Date Jeff Strickland MD [address] [place] [address] PCP - General 03/05/18 [place] [address] [place] [address] Orthopedic Surgery 03/28/17 documented as of this encounter
--- OUTSIDE RECORDS SUMMARY | 2024-11-07 08:13 | XMS_ITS | Encounter Summary ---
Author Organization [facility] Address [address] [facility] [place] [address] Care Team Providers Care Lathe Puller Name Role Phone Deandre Bojorquez MD Unavailable [phone] Jeff Strickland MD Primary Care Provider [phone] Reason for Visit * Reason Onset Date Comments Post-Op 09/03/2024 Encounter Details Date Type Department Care Team (Late st Contact Info) Description 09/03/2024 Telephone [facility] - Cardiology [address] [facility], [facility] [address] [place] [address] Hannah Goodman MD [address] [facility] [address] [place] [address] Post-Op Social History Tobacco Use Types Packs/Day [...] and heating? Not hard at all 09/04/2024 [facility] [place] of Occupat ional Health - Occupational Stress [...] any time in the past 12 m [facility], were you homeless or living in a assisted (including now)? 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 Gender Identity Male 07/02/2021 2:37 PM CDT [...] confused post op Patient Call Back number: [phone] documented in this encounter Plan of Treatment Upcoming Encounters Date Type Department Care Team (Late st Contact Info) Description 11/12/2024 8:00 AM CDT Appointment [facility] IVR [address] [place] [phone] Elroy Holcomb MD [address] [facility] 2L [place] [address] 12/06/2024 10:40 AM CDT Office Visit [facility] - Endocrinology [address] [place] [address], [place] [phone] Marbin Flores MD [address] [facility] DIV OF [place] [address] Niraj Turner MD [facility]5 [facility] 2L [place] [address] documented as of this encounter Visit Diagnoses Not on filedocumented in this encounter Additional Health Concerns Infection Onset Date Last Indicated Resolved Time COVID-19 Under Investigation 09/13/2024 09/13/2024 09/13/2024 6:36 AM CDT documented as of this encounter Care Teams Lathe Puller Relationship Specialty Start Date End Date Jeff Strickland MD [address] [place] [address] PCP - General 03/05/18 [place] [address] [address] [place] [address] Orthopedic Surgery 03/28/17 documented as of this encounter
[2024-11-07 08:16] VITALS: PULSE 68; O2SAT 100
[2024-11-07 08:48] LABS: Hematocrit 32.0 % (42.0-52.0); Hemoglobin 10.2 g/dL (14.0-18.0); Immature Granulocyte Percent A 1.0 % (0-0.5); Lymphocytes Absolute Auto 1.21 K/mm3 (0.9-3.2); Mean Corpuscular HGB Conc 31.9 g/dl (32-36); Mean Corpuscular Hemoglobin 28.0 pg (26-34); Mean Corpuscular Volume 87.9 fl (80-100); Nucleated Red Blood Cells Absolute Auto 0.000 K/mm3 (0.0-0.012); Nucleated Red Blood Cells Perc 0.0 % (0.0-0.2); Platelet Count Result 196 k/mm3 (150-375); Red Blood Count 3.64 M/mm3 (4.6-6.20); White Blood Count 6.2 K/mm3 (4.5-10.0)
--- NOTE | 2024-11-07 08:52 | ED.GENADULT ---
HPI - General Adult General Chief complaint: Chest Pain Stated complaint: OLVERA, CP, brain fog? Time Seen by Provider: 11/07/24 08:08 History of Present Illness HPI narrative: 69-year-old male present to the emergency department for evaluation for brain fog. Patient states he has been having issues with sleeping and has been taking Ativan to help with sleep. Patient is provided a CPAP at nighttime but states he does not wear it. Patient does complain of headache and feeling confused. Patient did report chest pain previously but denies any chest pain during my evaluation and examination. Related Data Home Medications ?Medication ?Instructions ?Recorded ?Confirmed ?Last Taken ?Type aspirin 81 mg tablet,delayed 81 mg PO HS 02/01/19 09/23/24 08/04/24 History release (Sami Low Dose Aspirin) vit C 250 mg-vit E 200 unit-zinc 1 tablet PO Q12H 02/01/19 09/23/24 08/05/24 History 12.5 mg-copper 1 [id number] tablet (ICaps AREDS2 (copper citrate)) cholecalciferol (vitamin D3) 125 125 mcg PO DAILY 10/01/22 09/23/24 08/05/24 History mcg (5,000 unit) tablet (Vitamin D3) atorvastatin 80 mg tablet 80 mg PO HS 09/02/23 09/23/24 08/04/24 History folic acid 0.8 mg-vit B comp with 800 tablet PO DAILY 04/03/24 09/23/24 08/05/24 History I-dfhy-vtxjnrf D3 2,000 unit tablet (Dialyvite 800-Ultra D) insulin aspart U-100 100 unit/mL 1 sliding scale dose subcut TID 04/03/24 09/23/24 08/05/24 History (3 mL) subcutaneous pen (Novolog FlexPen U-100 Insulin aspart) insulin glargine 100 unit/mL (3 35 unit subcut HS 04/03/24 09/23/24 08/04/24 History mL) subcutaneous pen (Basaglar KwikPen U-100 Insulin) lisinopril 20 mg tablet 20 mg PO BID 04/21/24 09/23/24 08/05/24 History blood-glucose transmitter (Dexcom 04/23/24 09/23/24 Unknown History G6 Transmitter device) carvedilol 25 mg tablet 25 mg PO BID 06/17/24 09/23/24 08/05/24 History tamsulosin 0.4 mg capsule 0.4 mg PO HS 06/17/24 09/23/24 08/04/24 History clopidogrel 75 mg tablet 75 mg PO HS 07/25/24 09/23/24 08/04/24 History furosemide 80 mg tablet 160 mg PO BID 09/23/24 09/23/24 Unknown History nifedipine 30 mg tablet,extended 30 mg PO DAILY 09/23/24 09/23/24 Unknown History release Allergies Allergy/AdvReac Type Severity Reaction Status Date / Time oxycodone AdvReac Unknown Hallucinati Verified 11/07/24 08:15 ng Review of Systems Review of Systems: All systems reviewed & are unremarkable except as noted in HPI and below PMFSH Past Medical History Medical History Hypertensive heart disease with heart failure Chronic diarrhea Family history of colon cancer in father Chronic ethmoidal sinusitis Nasal congestion Bilateral impacted cerumen Allergic rhinitis Chronic sinusitis Chronic recurrent sinusitis Hypertensive CHF C. difficile colitis Arthritis Kidney stones Benign prostatic hyperplasia Coronary artery disease End-stage renal disease on peritoneal dialysis Obstructive sleep apnea Insulin dependent type 2 diabetes mellitus Renal cell carcinoma Status post partial left nephrectomy. Dyslipidemia Clostridium difficile infection Gastroesophageal reflux disease Depression with anxiety Hypothyroidism Cirrhosis Pituitary tumor Status post resection. Anemia Chronic diastolic (congestive) heart failure Hypertension Surgical History Surgical History History of open reduction and internal fixation (ORIF) procedure (11/2022) Screw fixation of sternal fracture. History of colonoscopy with polypectomy History of umbilical hernia repair History of inguinal hernia repair History of coronary artery stent placement History of cardiac catheterization (08/2020) Stent x2 to the LAD. History of arthroplasty of right knee History of cataract extraction History of pituitary surgery (11/2021) History of partial nephrectomy Partial left nephrectomy for renal cell carcinoma. History of cholecystectomy (2007) Family History Family History Mother Aneurysm Hypertension Cerebrovascular accident Heart murmur Father Carcinoma of colon Social History Social History Social History: Surrogate medical decision maker: Harriet Carl, spouse. Code status: Full code. Smoking status: Never smoker Second hand tobacco smoke exposure: No Alcohol intake: never Alcohol use details: rare, holidays Substance use: never Substance use type: does not use Do You Feel Safe in your Home?: Yes Lack of Transportation: No Lack of Food: Never True Current Housing: I Have Housing Concerned About Future Housing: No Difficulty Paying Gas/Electric Bills: No Difficulty Paying for Meds: No Currently Unemployed: No Education: Trade/Vocational Certificate Difficulty w/ Childcare or Family Care: No Living arrangements: with family Additional living arrangements comments: Lives with spouse in [place]. Occupation/Education: retired Additional occupation/education comments: [employer]. Spiritual care concerns: No Agree to blood products: Yes Exam Narrative: APPEARANCE: Well appearing, no pain, no distress, well-nourished. HEAD: normocephalic, atraumatic. EYES: PERRLA/EOMI, conjunctivae clear. NOSE: Normal no drainage EARS:TMS clear with good light reflex. THROAT: Pharynx clear, no exudate. NECK: Supple. No adenopathy, no masses. RESPIRATORY: Airway patent, respirations nonlabored. Clear to auscultation bilaterally, no rales, rhonchi, wheezing. CARDIOVASCULAR: Regular rate and rhythm without murmurs rubs or gallops. ABDOMINAL: Soft, nontender, nondistended, normal bowel sounds MUSCULOSKELETAL: Moves all extremities. Strength/ROM intact, No edema, No calf tenderness. NEURO: Alert. Cranial nerves II through XII intact. Good gait. Good coordination SKIN: Warm, dry. Normal Color Course Vital Signs Vital signs: Vital Signs Temperature 98.2 F 11/07/24 08:11 Pulse Rate 71 11/07/24 08:11 Respiratory Rate 22 H 11/07/24 08:11 Pulse Oximetry 100 11/07/24 08:11 Oxygen Delivery Room Air 11/07/24 08:11 Temperature 98.2 F 11/07/24 08:11 Pulse Rate 63 11/07/24 10:55 Respiratory Rate 20 11/07/24 10:55 Blood Pressure 151/76 H 11/07/24 10:55 Pulse Oximetry 99 11/07/24 10:55 Oxygen Delivery Room Air 11/07/24 08:16 Medical Decision Making MDM Narrative Medical decision making narrative: 69-year-old male presents emergency department for evaluation for issues with sleep deprivation and being foggy headed. Patient is currently afebrile no leukocytosis hemoglobin of 10.2. Patient's INR is 1.0. Patient has no acute abnormalities on his CMP, patient's creatinine is similar to his baseline. Patient does have an elevated troponin but this was flat and patient's EKG shows no evidence of acute STEMI. Patient denies any chest pain at time of examination and on re-evaluation. Chest x-ray shows no acute cardiopulmonary abnormality, head CT was negative for acute intracranial abnormality. Patient and family are updated on the results of the workup. Patient was advised to work on his sleep hygiene rather than to rely on pharmaceuticals to help in sleep. Patient was encouraged to use his CPAP at nighttime. Patient will have close follow-up with his primary care physician patient was also educated on reasons to return to the emergency department. Patient family are comfortable with this plan. Differential Diagnosis Differential Diagnosis: Adverse medication reaction, CPAP noncompliance, hypercapnia, migraine, headache, daytime somnolence, insomnia, ACS, subdural hematoma, subarachnoid hemorrhage Vital Signs Vital Signs: Vital Signs Temperature 98.2 F 11/07/24 08:11 Pulse Rate 71 11/07/24 08:11 Respiratory Rate 22 H 11/07/24 08:11 Pulse Oximetry 100 11/07/24 08:11 Oxygen Delivery Room Air 11/07/24 08:11 Temperature 98.2 F 11/07/24 08:11 Pulse Rate 63 11/07/24 10:55 Respiratory Rate 20 11/07/24 10:55 Blood Pressure 151/76 H 11/07/24 10:55 Pulse Oximetry 99 11/07/24 10:55 Oxygen Delivery Room Air 11/07/24 08:16 Lab Data Lab results reviewed: Yes I reviewed the patient's lab results. 11/07/24 08:43 11/07/24 08:43 Labs: Lab Results 11/07/24 11/07/24 Range/Units 08:43 11:18 WBC 6.2 (4.5-10.0) K/mm3 RBC 3.64 L (4.6-6.20) M/mm3 Hgb 10.2 L (14.0-18.0) g/dL Hct 32.0 L (42.0-52.0) % MCV 87.9 (80-100) fl MCH 28.0 (26-34) pg MCHC 31.9 L (32-36) g/dl RDW 16.0 H (11.5-14.5) % Plt Count 196 (150-375) k/mm3 MPV 9.9 (7.4-10.4) fl Immature Gran % (Auto) 1.0 H (0-0.5) % Neut % (Auto) 62.1 (45.5-73.1) % Lymph % (Auto) 19.5 (18.3-44.2) % [place] % (Auto) 15.8 H (2.6-8.5) % Eos % (Auto) 1.4 (0-4.4) % Baso % (Auto) 0.2 (0.2-1.2) % Lymph # (Auto) 1.21 (0.9-3.2) K/mm3 [place] # (Auto) 1.0 H (0.1-0.6) K/mm3 Eos # (Auto) 0.1 (0-0.3) K/mm3 Baso # (Auto) 0.0 (0.0-0.1) K/mm3 Abs Immat Gran (auto) 0.06 H (0.00-0.031) K/mm3 Absolute Neuts (auto) 3.9 (1.3-6.7) K/mm3 Absolute Nucleated RBC 0.000 (0.0-0.012) K/mm3 Nucleated RBC % 0.0 (0.0-0.2) % PT 13.4 (11.1-14.7) Seconds INR 1.0 APTT 30.6 (22.3-36.8) Seconds Sodium 133 L (137-145) mmol/L Potassium 3.4 (3.4-5.0) mmol/L Chloride 95 L (98-107) mmol/L Carbon Dioxide 28 (22-30) mmol/L Anion Gap 10 (4-12) mmol/L BUN 29 H (9-20) mg/dL Creatinine 7.58 H (0.7-1.3) mg/dL Estim Creat Clear Calc 10 ml/min Estimated GFR 7 L (59 - ) Glucose 93 (65-110) mg/dL Calcium 8.2 L (8.4-10.2) mg/dL Total Bilirubin 0.5 (0.2-1.3) mg/dL AST 115 H (17-59) U/L ALT 139 H (6-50) U/L Alkaline Phosphatase 126 (38-126) U/L Troponin I 0.042 H* 0.040 H* (0.000-0.034) ng/mL Total Protein 6.0 L (6.3-8.2) g/dL Albumin 3.0 L (3.5-5.1) g/dL Lipase 69 (23-300) U/L Imaging Data Radiologist's impression: Impressions Head CT 11/07/24 09:10 IMPRESSION: 1. No acute intracranial findings. 2. Nonspecific intracranial calcifications. Metabolic abnormality possible. Mild manifestation of Fahr syndrome also possible. Chest X-Ray 11/07/24 09:30 IMPRESSION: 1. No acute cardiopulmonary findings. Discharge Plan Discharge Clinical Impression: Insomnia Patient Disposition: Home Condition: Stable Instructions: Antibiotic Form, Insomnia (ED) Additional Instructions: Wear your CPAP as directed. Follow good sleep hygiene. Have close follow-up with your primary care physician. If you have any worsening symptoms please call or return to the emergency department. Patient Language: Zambian Prescriptions: No Action aspirin [Sami Low Dose Aspirin] 81 mg Tablet,Delayed Release (Dr/Ec) 81 mg PO HS ICaps AREDS2 (copper citrate) 250 mg-200 unit -12.5 mg-1 mg Tablet 1 tablet PO Q12H pantoprazole 40 mg tablet,delayed release (DR/EC) 40 mg PO QAM Qty: 30 3RF (DME) Dexcom G6 Transmitter Device See Rx Instructions .Route Rx Instructions: As directed gabapentin 100 mg tablet 100 mg PO BID Qty: 60 1RF nifedipine 30 mg tablet extended release 30 mg PO DAILY lanthanum 1,000 mg tablet,chewable 1,000 mg PO TID Qty: 1 0RF Rx Instructions: administer with food; chew thoroughly before swallowing furosemide 80 mg tablet 160 mg PO BID lisinopril 20 mg tablet 20 mg PO BID famotidine 20 mg tablet 20 mg PO DAILY Qty: 30 0RF ondansetron 4 mg tablet,disintegrating 4 mg PO Q8H PRN (Reason: nausea and vomiting) Qty: 8 0RF cholecalciferol (vitamin D3) [Vitamin D3] 125 mcg (5,000 unit) Tablet 125 mcg PO DAILY atorvastatin 80 mg tablet 80 mg PO HS carvedilol 25 mg tablet 25 mg PO BID tamsulosin 0.4 mg capsule 0.4 mg PO HS Dialyvite 800-Ultra D 0.8-2,000 mg-unit tablet 800 tablet PO DAILY insulin aspart U-100 [Novolog FlexPen U-100 Insulin] 100 unit/mL (3 mL) insulin pen 1 sliding scale dose subcut TID Patient Comments: PATIENT TAKES 5 UNITS WITH MEALS SCHEDULED AND GOES UP TO 15 UNITS IF IT GETS TO 300 insulin glargine [Basaglar KwikPen U-100 Insulin] 100 unit/mL (3 mL) insulin pen 35 unit subcut HS Patient Comments: 40 UNITS IN MORNING clopidogrel 75 mg tablet 75 mg PO HS hydrocodone-acetaminophen 5-325 mg tablet 1 tablet PO Q6H PRN (Reason: pain) Qty: 30 0RF levothyroxine 112 mcg tablet 112 mcg PO DAILY Qty: 90 2RF lorazepam [Ativan] 1 mg tablet 1 mg PO HS PRN (Reason: sleep) Qty: 14 0RF Follow-up/Referrals: Jeff Strickland MD [Primary Care Provider, Family Practice]
[2024-11-07 09:01] LABS: INR 1.0; Partial Thromboplastin Time 30.6 Seconds (22.3-36.8); Prothrombin Time 13.4 Seconds (11.1-14.7)
[2024-11-07 09:07] LABS: Alanine Aminotransferase 139 U/L (6-50); Albumin Level 3.0 g/dL (3.5-5.1); Alkaline Phosphatase 126 U/L (38-126); Anion Gap 10 mmol/L (4-12); Aspartate Amino Transferase 115 U/L (17-59); Bilirubin,Total 0.5 mg/dL (0.2-1.3); Blood Urea Nitrogen 29 mg/dL (9-20); Calcium 8.2 mg/dL (8.4-10.2); Carbon Dioxide 28 mmol/L (22-30); Chloride 95 mmol/L (98-107); Estimated CRCL calculation 10 ml/min; Estimated Glomerular Filt Rate 7; Glucose 93 mg/dL (65-110); Lipase 69 U/L (23-300); Potassium 3.4 mmol/L (3.4-5.0); Sodium 133 mmol/L (137-145); Total Protein 6.0 g/dL (6.3-8.2)
[2024-11-07 09:41] LABS: Troponin I 0.042 ng/mL (0.000-0.034)
[2024-11-07 10:55] VITALS: BP 151/76; PULSE 63; RESP 20; O2SAT 99
--- NOTE | 2024-11-07 11:19 | ECG_ITS ---
Test Date: 2024-11-07 11:23:48 Measurements Intervals Vest Rate: 61 P: 73 MA: 156 QRS: -59 QRSD: 102 T: -67 QT: 489 QTc: 496 Interpretive Statements SINUS RHYTHM PATTERN CONSISTENT WITH PULMONARY DISEASE LEFT ANTERIOR FASCICULAR BLOCK [QRS AXIS <= -45, QR IN I, RS IN II] NONSPECIFIC ST-T CHANGES Compared to ECG 11/07/2024 08:15:01 NO SIGNIFICANT CHANGES Electronically Signed On 11-08-2024 14:10:02 CDT by Wagner Sigala M.D.
[2024-11-07 11:59] LABS: Troponin I 0.040 ng/mL (0.000-0.034)
== END 2024-11-07 12:59 | disposition home or self-care (01) ==
PROVIDERS: Emergency Provider Emergency Medicine; PCP Family Medicine
DX: G47.00 Insomnia, unspecified (principal); I44.4 Left anterior fascicular block; I13.2 Hypertensive heart and chronic kidney disease with heart failure and with stage 5 chronic kidney disease, or end stage renal disease; E11.22 Type 2 diabetes mellitus with diabetic chronic kidney disease; N18.6 End stage renal disease; I50.9 Heart failure, unspecified; Z99.2 Dependence on renal dialysis; Z79.4 Long term (current) use of insulin; M19.90 Unspecified osteoarthritis, unspecified site; Z87.442 Personal history of urinary calculi; I25.10 Atherosclerotic heart disease of native coronary artery without angina pectoris; G47.30 Sleep apnea, unspecified; E78.5 Hyperlipidemia, unspecified; F41.9 Anxiety disorder, unspecified; F32.A Depression, unspecified; E03.9 Hypothyroidism, unspecified; D64.9 Anemia, unspecified
CPT/HCPCS: 36415; 70450; 71046; 80053; 83690; 84484; 85025; 85610; 85730; 93005; 99284

== ENCOUNTER 2024-11-08 20:34 | Emergency (ER) | payer MEDICARE, SELFPAY ==
--- OUTSIDE RECORDS SUMMARY | 2009-04-18 10:00 | XMS_ITS | Continuity of Care Document ---
Author Organization [facility] Address [address] [place] [address] Phone Care Team Providers Care Obstetrics And Gynecology Professor Name Role Phone Kee Rodriguez Unavailable Unavailable Procedures Procedure Date Office/outpatient Visit, Est Eye Exam Established Pt Advance Directives Directive Yes / No Effective Date File Name No Information Encounters Encounter Description Practice Location Reason(s) For Visit Diagnoses Date Provider Providers Copied on Encounter Office/outpat ient Visit, Est [facility], [address] [place] [address] [address], [place], [place], [address], tel:[phone] SEC [facility] No Information Mar-0 2-201 0 Krishnasamy Kee. [address] [facility] [place] [address], [place], [place], [place], [place]. tel:[phone] [facility], [address] [place] [address] [address], [place], [place], [address], tel:[phone] SEC [facility] No Information Nhan-3 0-200 7 David OD Freddy. [address], [place], [place], [place], [place]. tel:[phone] Family History Family Member Type Diagnosis Age At Onset No Information Payers Payer name Insurance type Covered democrat ID Authoriza tion(s) No Information Social History [...]
--- OUTSIDE RECORDS SUMMARY | 2023-09-09 06:59 | XMS_ITS | Continuity of Care Document ---
Author Organization [facility] [place] Address [address] [place] [address] Phone Care Team Providers Care Cras Name Role Phone Olu Payan Unavailable Unavailable Procedures Procedure Date Therapeutic Activities Neuromuscular Re-Ed Therapeutic Exercise Therapeutic Activities Neuromuscular Re-Ed Hot or Cold Pack Therapeutic Activities Neuromuscular Re-Ed Therapeutic Exercise Hot or Cold Pack Therapeutic Activities Neuromuscular Re-Ed Therapeutic Exercise Neuromuscular Re-Ed Therapeutic Activities Therapeutic Exercise Therapeutic Activities Neuromuscular Re-Ed Therapeutic Exercise Manual Therapy Therapeutic Activities Neuromuscular Re-Ed Therapeutic Exercise Hot or Cold Pack Neuromuscular Re-Ed Therapeutic Exercise Manual Therapy Doc neg elder mal no plan PT Evaluation Moderate Complexity Neuromuscular Re-Ed Therapeutic Exercise Manual Therapy Advance Directives Directive Yes / No Effective Date File Name No Information Encounters Encounter Description Practice Location Reason(s) For Visit Diagnoses Date Provider Providers Copied on Encounter [facility], [place], [place], [id number], tel:[phone] [place] No Information 4 Gladis Olu. [address] [place] [address], [address], [place], [place], [facility], . tel: [phone] [address] [place] [address], [place], [place], [id number], tel:[phone] [place] No Information 4 Genoveva Mcdonald. . Referring Provider: Jeff Strickland [address] [place] [address] [address], [place], [place], [facility]. tel:[phone] [place] [address], [place], [place], [id number], tel:[phone] [place] No Information 4 Gladis Olu. [address] [place] [address], [address], [place], [place], [facility], . tel: [phone] Referring Provider: [facility] [address], [place], [facility]. tel:[phone] [place] [address], [place], [place], [id number], tel:[phone] [place] No Information 4 Gladis Raines. [address] [place] [address], [address], [place], [place], [facility], . tel: [phone] Referring Provider: Yan[facility] Chin [facility] [address], [place], [address]. tel:[phone], [id number], tel:[phone] [place] No Information 4 Jacinto Fairchild. . Referring Provider: Yanira Chin [facility] [address], [place], [address]. tel:[phone], [place], [place], [address], [place] tel:[phone] [place] No Information 4 Jacinto Fairchild. . Referring Provider: Jeff Strickland [address] [place] [address] [address], [place], [facility]. tel:[phone], [id number], tel:[phone] [place] No Information 4 Genoveva Mcdonald. . Referring Provider: Jeff Strickland [address] [place] [address] [address], [place], [facility]. tel:[phone], [id number], tel:[phone] [place] No Information [address] [facility], [address], [place], [facility], . tel: [phone] Referring Provider: Jeff Strickland [address] [place] [address] [address], [place], [facility]. tel:[phone], [id number], tel:[phone] [place] No Information 0 4 Genoveva Mcdonald. . Referring Provider: Jeff Strickland [address] [place] [address] [address], [place], [facility]. tel:[phone] [address], [place], [id number], [place] tel:[phone] [place] No Information 0 [address] [facility], [address], [place], [place], [facility], . tel: [phone] Referring Provider: Jeff Strickland [address] [place] [address] [address], [place], [facility]. tel:[phone] Family History Family Member Type Diagnosis Age At Onset No Information Payers Payer name Insurance type Covered green party ID Diego suarez(ernesto Hadley [id number] Social History Type Description Quantity Date Captured [...]
--- NOTE | ~2024-11-08 | CT_ITS ---
EXAMINATION: CT abdomen pelvis wo con DATE: 11/08/2024 22:52 INDICATION: Abdominal pain. TECHNIQUE: Computed tomography (CT) of the abdomen and pelvis was performed without intravenous contrast. Automated exposure control and iterative reconstruction technique were employed. The dose-length product was 1320.84 mGy-cm. COMPARISON: CT abdomen and pelvis 11/04/2024, 09/18/2023 FINDINGS: The visualized portions of the lung bases demonstrate mild atelectasis. There is a 6 mm nodule in left lower lobe is stable from 09/18/2023, likely benign. No pleural effusion. The heart size is normal. There are coronary artery calcifications. No pericardial effusion. The liver is normal. Calc ifications in the spleen are consistent with old granulomatous disease. There are changes of cholecystectomy. The pancreas and adrenal glands are normal. There are cysts and hemorrhagic cysts in the kidneys measuring up to 4.6 cm on the left. The prostate is moderately enlarged. There are no dilated loops of bowel. The appendix is normal. There is a moderate volume of ascites. A peritoneal dialysis catheter is noted. There are bilateral inguinal hernias containing fat. There are no pathologically enlarged lymph nodes. There is bilateral gynecomastia. There are bridging endplate osteophytes at multiple levels in the spine, consistent with diffuse idiopathic skeletal hyperostosis (DISH). There is mild lumbar spondylosis. IMPRESSION: 1. Bilateral inguinal hernias containing fat. 2. Moderate volume of ascites with dialysis catheter in expected position. Reviewed, dictated and finalized at location E.
[2024-11-08 20:50] VITALS: BP 171/71; PULSE 67; RESP 18; TEMP 36.4; O2SAT 100
--- NOTE | 2024-11-08 21:54 | PC.NURSE ---
This RN attempted to start IV and obtain labs. This RN poke once in R AC pt told this RN to remove and that it has to be an ultrasound IV. This RN removed needle and placed pt back in WR to attempt US IV when roomed.
--- NOTE | 2024-11-08 22:10 | PC.NURSE ---
pt states I need an US IV. EDP made aware.
--- OUTSIDE RECORDS SUMMARY | 2024-11-08 22:10 | XMS_ITS | Clinical Summary ---
Author Organization [facility] Address [address] [place] [address] Phone Care Team Providers Care Roll Table Operator Name Role Phone Jeff Strickland MD Primary Care Provider [phone] Allergies No known active allergies Medications pantoprazole [...] tablet Take 112 mcg by mouth daily vp compliance. Active aspirin (ANGELLA) 325 mg tablet Take 325 mg by mouth daily. Active Vit C-Vit S-Gbhbpl-HjQv-L utein (PRESERVISION) 226 mg-200 unit -5 mg-0.8 [...] Comments Blood Pressure 167/77 02/04/2019 9:16 AM SHOT HOLE DRILLER Pulse 64 02/04/2019 9:16 AM SHOT HOLE DRILLER Temperature 36.5 C (97.7 F) 02/04/2019 9:16 AM SHOT HOLE DRILLER Respiratory Rate 16 02/04/2019 9:16 AM SHOT HOLE DRILLER Oxygen Saturation 97% 02/04/2019 9:16 AM SHOT HOLE DRILLER Inhaled Oxygen Concentration - - Weight 113.4 kg (250 lb) 02/04/2019 9:16 AM SHOT HOLE DRILLER Height 175.3 cm (5' 9) 02/04/2019 9:16 AM SHOT HOLE DRILLER Body Mass Index 36.92 02/04/2019 9:16 AM SHOT HOLE DRILLER Plan of Treatment Health Maintenance Due Date [...] ACCESS/TRUE BLUE PPO [employer] MEDICARE SUPPLEMENT PPO [facility] BLUE ACCESS/TRUE BLUE PPO Care Teams Roll Table Operator Relationship Specialty Start Date End Date Jeff Strickland MD [address] [facility] [address] [place] [address] PCP - General Family Practice 01/01/19
--- OUTSIDE RECORDS SUMMARY | 2024-11-08 22:10 | XMS_ITS | Encounter Summary ---
Author Organization [facility] Address [employer] [place] [address] Care Team Providers Care Store Gift Wrap Associate Name Role Phone Deandre Bojorquez MD Unavailable [phone] Jeff Strickland MD Primary Care Provider [phone] Encounter Details Date Type Department Care Team (Late st Contact Info) Description 04/29/2024 Lab Requisition [facility] MAIN LAB [address] [place] [id number] Alan Davenport MD 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 2L [place] [address] 12/06/2024 10:40 AM CDT Office Visit [facility] - Endocrinology [address] [place] [address], [place] [address] Marbin Flores MD [address] [facility] DIV [place] [address] Niraj Turner MD [address] [facility] 2L [place] [address] documented as of this encounter Procedures Procedure Name Priority Date/Time Associated Diagnosis Comments HOLD HLA SPECIMEN Routine 04/27/2024 1:4 8 PM CDT documented in this encounter Results * HOLD HLA SPECIMEN (04/27/2024 1:48 PM CDT) Hold HLA Specimen 04/29/2024 3:02 PM CDT [facility] Comment:The Hold HLA specime n has been received into the lab and will be held for 5 years at 4 degrees. Blood BLOOD SPECIMEN / Unknown 04/27/2024 1:48 PM CDT 04/29/2024 1:49 PM CDT us Alan Davenport MD LAB - BLOOD BANK ORDERABLES F inal Result [facility] [address] documented in this encounter Visit Diagnoses Not on filedocumented in this encounter Additional Health Concerns Infection Onset Date Last Indicated Resolved Time COVID-19 Under Investigation 09/13/2024 09/13/2024 09/13/2024 6:36 AM CDT documented as of this encounter Care Teams Store Gift Wrap Associate Relationship Specialty Start Date End Date Jeff Strickland MD [address] [place] [address] PCP - General 03/05/18 [place] [address] [address] Orthopedic Surgery 03/28/17 documented as of this encounter
--- OUTSIDE RECORDS SUMMARY | 2024-11-08 22:10 | XMS_ITS | Encounter Summary ---
Author Organization [facility] Address [facility] [place] [address] Care Team Providers Care Brush Holder Inspector Name Role Phone Deandre Bojorquez MD Unavailable [phone] Jeff Strickland MD Primary Care Provider [phone] Encounter Details Date Type Department Care Team (Late st Contact Info) Description 05/29/2023 Lab Requisition [facility] MAIN LAB [address] [place] [phone] Alan Davenport MD [facility] OF [place]BD [place] [address] Social History Tobacco Use Types Packs/Day Years Used Date Smoking Tobacco: Never Smokeless Tobacco: Never Alcohol Use Standard Drinks/Week Comments Not Currently 0 (1 standard drink = 0.6 oz pur e alcohol) socially in past Sex and Gender Information Value Date Recorded Sex Assigned at Male 07/02/2021 2:37 PM CDT 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 Gender Identity Male 07/02/2021 2:37 PM CDT [...] Info) Description 11/12/2024 8:00 AM CDT Appointment [facility] IVR [address] [place] [phone] Elroy Holcomb MD [address] [facility] 2L [place] [address] 12/06/2024 10:40 AM CDT Office Visit [facility] - Endocrinology [address] [place] [address], [place] [address] Marbin Flores MD [address] [facility] DIV OF [place] [address] Niraj Turner MD [address] [facility] 2L [place] [address] documented as of this encounter Procedures Procedure Name Priority Date/Time Associated Diagnosis Comments HOLD HLA SPECIMEN Routine 05/21/2023 9:2 4 AM CDT documented in this encounter Results * HOLD HLA SPECIMEN (05/21/2023 9:24 AM CDT) Hold HLA Specimen 05/29/2023 10:30 AM CDT [facility] Comment:The Hold HLA specime n has been received into the lab and will be held for 5 years at 4 degrees. Blood BLOOD SPECIMEN / Unknown 05/21/2023 9:24 AM CDT 05/29/2023 9:24 AM CDT Alan Davenport MD LAB - BLOOD BANK ORDERABLES F inal Result [facility] [address] documented in this encounter Visit Diagnoses Not on filedocumented in this encounter Additional Health Concerns Infection Onset Date Last Indicated Resolved Time COVID-19 Under Investigation 09/13/2024 09/13/2024 09/13/2024 6:36 AM CDT documented as of this encounter Care Teams Brush Holder Inspector Relationship Specialty Start Date End Date Jeff Strickland MD [address] [place] [address] PCP - General 03/05/18 [place] [address] [address] Orthopedic Surgery 03/28/17 documented as of this encounter
--- OUTSIDE RECORDS SUMMARY | 2024-11-08 22:10 | XMS_ITS | Encounter Summary ---
Author Organization [facility] Address [address] [place] [address] Care Team Providers Care Sales Lead Generator Name Role Phone Deandre Bojorquez MD Unavailable [phone] Jeff Strickland MD Primary Care Provider Encounter Details Date Type Department Care Team (Late st Contact Info) Description 03/12/2024 Lab Requisition [facility] MAIN LAB [address] [place] [phone] Alan Davenport MD 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 Gender Identity Male 07/02/2021 2:37 PM [...] 8:00 AM CDT Appointment [facility] IVR [address] [place] [phone] Elroy Holcomb MD 1225 [facility] 2L [place] [address] 12/06/2024 10:40 AM CDT Office Visit [facility] - Endocrinology [address] [place] [address], [place] [address] Marbin Flores MD [address] [facility] DIV [place] [address] Niraj Turner MD 1225 [facility] 2L [place] [address] documented as of this encounter Procedures Procedure Name Priority Date/Time Associated Diagnosis Comments HOLD HLA SPECIMEN Routine 03/05/2024 1:4 0 PM RUG DYER HELPER documented in this encounter Results * HOLD HLA SPECIMEN (03/05/2024 1:40 PM RUG DYER HELPER) Hold HLA Specimen 03/12/2024 3:00 PM RUG DYER HELPER [facility] Comment:The Hold HLA specime n has been received into the lab and will be held for 5 years at 4 degrees. Blood BLOOD SPECIMEN / Unknown 03/05/2024 1:40 PM RUG DYER HELPER 03/12/2024 1:40 PM RUG DYER HELPER Alan Davenport MD LAB - BLOOD BANK ORDERABLES F inal Result [facility] [address] documented in this encounter Visit Diagnoses Not on filedocumented in this encounter Additional Health Concerns Infection Onset Date Last Indicated Resolved Time COVID-19 Under Investigation 09/13/2024 09/13/2024 09/13/2024 6:36 AM CDT documented as of this encounter Care Teams Sales Lead Generator Relationship Specialty Start Date End Date Jeff Strickland MD [address] [place] [address] PCP - General 03/05/18 [place] [address] [place] [address] Orthopedic Surgery 03/28/17 documented as of this encounter
--- OUTSIDE RECORDS SUMMARY | 2024-11-08 22:10 | XMS_ITS | Encounter Summary ---
Author Organization [facility] Address [facility]3 [place] [address] Care Team Providers Care Land Appraiser Name Role Phone Deandre Bojorquez MD Unavailable [phone] Jeff Strickland MD Primary Care Provider [phone] Encounter Details Date Type Department Care Team (Late st Contact Info) Description 10/28/2023 Lab Requisition [facility] MAIN LAB [address] [place] [phone] Alan Davenport MD [facility] [place] [address] Social History Tobacco Use Types Packs/Day Years Used Date Smoking Tobacco: Never Smokeless Tobacco: Never Alcohol Use Standard Drinks/Week Comments Not Currently 0 (1 standard drink = 0.6 oz pur e alcohol) socially in past Sex and Gender Information Value Date Recorded Sex Assigned at Male 07/02/2021 2:37 PM CDT 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 Gender Identity Male 07/02/2021 2:37 PM [...] Info) Description 11/12/2024 8:00 AM CDT Appointment [facility] IVR [address] [place] [phone] Elroy Holcomb MD 1225 [facility] 2L [place] [address] 12/06/2024 10:40 AM CDT Office Visit [facility] - Endocrinology [address] [place] [address], [place] [address] Marbin Flores MD 1201 [address] [facility] [place] [address] Niraj Turner MD 1225 [facility] 2L [place] [address] documented as of this encounter Procedures Procedure Name Priority Date/Time Associated Diagnosis Comments HOLD HLA SPECIMEN Routine 10/22/2023 3:5 0 PM CDT documented in this encounter Results * HOLD HLA SPECIMEN (10/22/2023 3:50 PM CDT) Hold HLA Specimen 10/28/2023 5:00 PM CDT [facility] Comment:The Hold HLA specime n has been received into the lab and will be held for 5 years at 4 degrees. Blood BLOOD SPECIMEN / Unknown 10/22/2023 3:50 PM CDT 10/28/2023 3:50 PM CDT Alan Davenport MD LAB - BLOOD BANK ORDERABLES F inal Result [facility] [address] documented in this encounter Visit Diagnoses Not on filedocumented in this encounter Additional Health Concerns Infection Onset Date Last Indicated Resolved Time COVID-19 Under Investigation 09/13/2024 09/13/2024 09/13/2024 6:36 AM CDT documented as of this encounter Care Teams Land Appraiser Relationship Specialty Start Date End Date Jeff Strickland MD [address] [place] [address] PCP - General 03/05/18 [place] [address] [address] Orthopedic Surgery 03/28/17 documented as of this encounter
--- OUTSIDE RECORDS SUMMARY | 2024-11-08 22:10 | XMS_ITS | Clinical Summary ---
Author Organization [facility] Address [address], [place] [address] Phone Care Team Providers Care Smoke Room Operator Name Role Phone Jeff Strickland MD Primary Care Provider [phone] Allergies No known active allergies Medications levothyroxine [...] tablet 3 0 Active Continuous Blood Gluc French Binding Folder (FreeStyle Em Enochs) device 1 each daily 0 Active Continuous Blood Gluc Sensor (FreeStyle Em Sensor System) misc 1 each once every 2 weeks 0 Active Lancets (OneTouch Delica Plus [id number]) misc OneTouch Delica Plus Lancet 33 gauge [...] 11/10/2019 Overview (12/17/2019): Kendall Carl 1955 Referring Weight Recorder: Alan Mccall Dialysis Info: NOD GFR 13 Type: Time: (Not currently on dialysis) days Blood Type: O NEG Body mass index is 37.36 kg/m . 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 Dr Strickland manages. 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 CKD (chronic kidney disease), stage V Community acquired pneumonia 2018 [facility] hospitalized. Diabetes mellitus 20 years. Lantus pen. Esophageal reflux takes med Hypercholesteremia 5-10 yrs meds Hypertension takes meds Hypothyroidism meds 20 years Kidney stones 5-6 years ago had 2 in the same year. Malignancy right kidney 2012 Obstructive sleep apnea 3 years. [facility]. Angela remember doctors name Renal cell [...] file Gets together: Not on file Attends shinto service: Not on file Active member of [...] this social media marketing specialist that Kendall Gillris has several positive factors for Kidney transplant candidacy from a psychosocial perspective. Patient appears to have appropriate knowledge of illness. Patient has sufficient insurance coverage and stable financial situation for post transplant needs. No concerns regarding substance abuse, legal issues, or mental health needs. Patient has adequate support system and appropriate discharge plan. Plan: eligibility worker to provide supportive services as needed. Patient appears to be a reasonable candidate for transplant from a psychosocial perspective. -Post transplant arrangement forms are needed prior to being listed. -Updated toxicology results needed, per protocol Psychiatric Consult Recommended: No Transplant Metal Slitter: Joy Tam LCSW RD: 11/09/2019 BMI= 36.2, [...] nephrectomy. 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 [id number] Immunizations Immunization Administration Dates Next Due Influenza [...] Insurance [employer] PM INTERFACED INSURANCE Care Teams Smoke Room Operator Relationship Specialty Start Date End Date Jeff Strickland MD 6812 [facility] 162 [facility] 120 [place] [address] PCP - General Internal Medicine 07/15/18
--- OUTSIDE RECORDS SUMMARY | 2024-11-08 22:10 | XMS_ITS | Encounter Summary ---
Author Organization [facility] Address [address] [place] [address] Care Team Providers Care Cloth Weigher Name Role Phone Deandre Bojorquez MD Unavailable [phone] Jeff Strickland MD Primary Care Provider [phone] Encounter Details Date Type Department Care Team (Late st Contact Info) Description 09/24/2024 Results Follow-Up [facility] Early Admission Unit [address] [place] [phone] Angel Crook MD [address] [place] [address] Social History Tobacco Use Types Packs/Day Years [...] and heating? Not hard at all 09/24/2024 [facility] [place] of Occupat ional Health - Occupational Stress [...] time in the past 12 m [facility], were you homeless or living in a snf (including now)? 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 Gender Identity Male 07/02/2021 2:37 PM [...] Info) Description 11/12/2024 8:00 AM CDT Appointment [facility] IVR [address] [place] [phone] Elroy Holcomb MD 1225 [facility] 2L [place] [address] 12/06/2024 10:40 AM CDT Office Visit [facility] Phys[facility] - Endocrinology 1225 [facility], [place] [phone] Marbin Flores MD 1201 [address] [facility] DIV OF [place] [address] Niraj Turner MD 1225 [facility] 2L [place] [address] documented as of this encounter Visit Diagnoses Not on filedocumented in this encounter Care Teams Cloth Weigher Relationship Specialty Start Date End Date Jeff Strickland MD [address] [place] [address] PCP - General 03/05/18 [place] [address] [facility] [address] [address] Orthopedic Surgery 03/28/17 documented as of this encounter
--- OUTSIDE RECORDS SUMMARY | 2024-11-08 22:10 | XMS_ITS | Encounter Summary ---
Author Organization [facility] Address [address] [place] [address] Care Team Providers Care Instructional Material Director Name Role Phone Deandre Bojorquez MD Unavailable [phone] Jeff Strickland MD Primary Care Provider [phone] Encounter Details Date Type Department Care Team (Late st Contact Info) Description 02/07/2023 Lab Requisition [facility] MAIN LAB [address] [place] [phone] Alan Davenport MD [facility]1 [facility] OF ABD [place] [address] Social History Tobacco Use Types Packs/Day Years Used Date Smoking Tobacco: Never Smokeless Tobacco: Never Alcohol Use Standard Drinks/Week Comments Not Currently 0 (1 standard drink = 0.6 oz pur e alcohol) socially in past Sex and Gender Information Value Date Recorded Sex Assigned at Male 07/02/2021 2:37 PM CDT Legal Sex Male 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 Gender Identity Male 07/02/2021 2:37 PM CDT [...] Info) Description 11/12/2024 8:00 AM CDT Appointment [facility] IVR [address] [place] [phone] Elroy Holcomb MD 1225 [facility] 2L [place] [address] 12/06/2024 10:40 AM CDT Office Visit [facility] Phys[facility] Group - Endocrinology [address] [place] [address], [place] [address] Marbin Flores MD 1201 [address] [facility] DIV OF [place] [address] Niraj Turner MD 1225 [facility] 2L [place] [address] documented as of this encounter Procedures Procedure Name Priority Date/Time Associated Diagnosis Comments HOLD HLA SPECIMEN Routine 2023 7:5 8 AM GRAPHICS EDITOR documented in this encounter Results * HOLD HLA SPECIMEN (2023 7:58 AM GRAPHICS EDITOR) Hold HLA Specimen 02/07/2023 9:01 AM GRAPHICS EDITOR [facility] Comment:The Hold HLA specime n has been received into the lab and will be held for 5 years at 4 degrees. Blood BLOOD SPECIMEN / Unknown 2023 7:58 AM GRAPHICS EDITOR 02/07/2023 7:59 AM GRAPHICS EDITOR Alan Davenport MD LAB - BLOOD BANK ORDERABLES F inal Result [facility] [address] documented in this encounter Visit Diagnoses Not on filedocumented in this encounter Additional Health Concerns Infection Onset Date Last Indicated Resolved Time COVID-19 Under Investigation 09/13/2024 09/13/2024 09/13/2024 6:36 AM CDT documented as of this encounter Care Teams Instructional Material Director Relationship Specialty Start Date End Date Jeff Strickland MD [address] [place] [address] PCP - General 03/05/18 [place] [address] [place] [address] Orthopedic Surgery 03/28/17 documented as of this encounter
--- OUTSIDE RECORDS SUMMARY | 2024-11-08 22:10 | XMS_ITS | Encounter Summary ---
Author Organization [facility] Address [address] [place] [address] Care Team Providers Care Hot Stamp Operator Name Role Phone Deandre Bojorquez MD Unavailable [phone] Jeff Strickland MD Primary Care Provider [phone] Encounter Details Date Type Department Care Team (Late st Contact Info) Description 06/25/2024 Lab Requisition [facility] [facility] MAIN LAB [address] [place] [phone] Alan Davenport MD [facility] OF [place] [address] Social History Tobacco Use Types Packs/Day Years Used Date Smoking Tobacco: Never Smokeless Tobacco: Never Alcohol Use Standard Drinks/Week Comments Not Currently 0 (1 standard drink = 0.6 oz pur e alcohol) socially in past Sex and Gender Information Value Date Recorded Sex Assigned at Male 07/02/2021 2:37 PM CDT 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 DIV [place] [address] Niraj Turner MD 1225 [facility] 2L [place] [address] documented as of this encounter Procedures Procedure Name Priority Date/Time Associated Diagnosis Comments HOLD HLA SPECIMEN Routine 06/22/2024 11: 05 AM CDT documented in this encounter Results * HOLD HLA SPECIMEN (06/22/2024 11:05 AM CDT) Hold HLA Specimen 06/25/2024 12:[address] [facility] Comment:The Hold HLA specime n has been received into the lab and will be held for 5 years at 4 degrees. Blood BLOOD SPECIMEN / Unknown 06/22/2024 11:05 AM CDT 06/25/2024 11:05 AM CDT Alan Davenport MD LAB - BLOOD BANK ORDERABLES F inal Result [facility] [address] documented in this encounter Visit Diagnoses Not on filedocumented in this encounter Additional Health Concerns Infection Onset Date Last Indicated Resolved Time COVID-19 Under Investigation 09/13/2024 09/13/2024 09/13/2024 6:36 AM CDT documented as of this encounter Care Teams Hot Stamp Operator Relationship Specialty Start Date End Date Jeff Strickland MD [address] [place] [address] PCP - General 03/05/18 [place] [address] [address] Orthopedic Surgery 03/28/17 documented as of this encounter
--- OUTSIDE RECORDS SUMMARY | 2024-11-08 22:10 | XMS_ITS | Encounter Summary ---
Author Organization [facility] Address [facility]3 [place] [address] Care Team Providers Care Ppap Coordinator Name Role Phone Deandre Bojorquez MD Unavailable [phone] Jeff Strickland MD Primary Care Provider [phone] Encounter Details Date Type Department Care Team (Late st Contact Info) Description 09/30/2023 Lab Requisition [facility] MAIN LAB [address] [place] [phone] Alan Davenport MD [facility]1 [facility] [place] [address] Social History Tobacco Use Types Packs/Day Years Used Date Smoking Tobacco: Never Smokeless Tobacco: Never Alcohol Use Standard Drinks/Week Comments Not Currently 0 (1 standard drink = 0.6 oz pur e alcohol) socially in past Sex and Gender Information Value Date Recorded Sex Assigned at Male 07/02/2021 2:37 PM CDT 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 Gender Identity Male 07/02/2021 2:37 PM [...] Info) Description 11/12/2024 8:00 AM CDT Appointment [facility] IVR [address] [place] [phone] Elroy Holcomb MD 1225 [facility] 2L [place] [address] 12/06/2024 10:40 AM CDT Office Visit [facility] Physician Group - Endocrinology [address] [place] [address], [place] [address] Marbin Flores MD 1201 [address] [facility] DIV [place] [address] Niraj Turner MD 1225 [facility] 2L [place] [address] documented as of this encounter Procedures Procedure Name Priority Date/Time Associated Diagnosis Comments HOLD HLA SPECIMEN Routine 09/24/2023 3:2 7 PM CDT documented in this encounter Results * HOLD HLA SPECIMEN (09/24/2023 3:27 PM CDT) Hold HLA Specimen 09/30/2023 4:32 PM CDT [facility] ([facility] Comment:The Hold HLA specime n has been received into the lab and will be held for 5 years at 4 degrees. Blood BLOOD SPECIMEN / Unknown 09/24/2023 3:27 PM CDT 09/30/2023 3:27 PM CDT Alan Davenport MD LAB - BLOOD BANK ORDERABLES F inal Result [facility] [address] documented in this encounter Visit Diagnoses Not on filedocumented in this encounter Additional Health Concerns Infection Onset Date Last Indicated Resolved Time COVID-19 Under Investigation 09/13/2024 09/13/2024 09/13/2024 6:36 AM CDT documented as of this encounter Care Teams Ppap Coordinator Relationship Specialty Start Date End Date Jeff Strickland MD [address] [place] [address] PCP - General 03/05/18 [place] [address] [address] Orthopedic Surgery 03/28/17 documented as of this encounter
--- OUTSIDE RECORDS SUMMARY | 2024-11-08 22:10 | XMS_ITS | Encounter Summary ---
Author Organization [facility] Address [facility]3 [place] [address] Care Team Providers Care Vehicle Service Attendant Name Role Phone Deandre Bojorquez MD Unavailable [phone] Jeff Strickland MD Primary Care Provider [phone] Encounter Details Date Type Department Care Team (Late st Contact Info) Description 07/31/2023 Lab Requisition [facility] MAIN LAB [address] [place] [phone] Alan Davenport MD [facility]1 [facility] [place] [address] Social History Tobacco Use Types Packs/Day Years Used Date Smoking Tobacco: Never Smokeless Tobacco: Never Alcohol Use Standard Drinks/Week Comments Not Currently 0 (1 standard drink = 0.6 oz pur e alcohol) socially in past Sex and Gender Information Value Date Recorded Sex Assigned at Male 07/02/2021 2:37 PM CDT 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 Gender Identity Male 07/02/2021 2:37 PM [...] Info) Description 11/12/2024 8:00 AM CDT Appointment [facility] IVR [address] [place] [phone] Elroy Holcomb MD 1225 [facility] 2L [place] [address] 12/06/2024 10:40 AM CDT Office Visit [facility] - Endocrinology [address] [place] [address], [place] [address] Marbin Flores MD 1201 [address] [facility] DIV [place] [address] Niraj Turner MD 1225 [facility] 2L [place] [address] documented as of this encounter Procedures Procedure Name Priority Date/Time Associated Diagnosis Comments HOLD HLA SPECIMEN Routine 07/23/2023 2:0 5 PM CDT documented in this encounter Results * HOLD HLA SPECIMEN (07/23/2023 2:05 PM CDT) Hold HLA Specimen 07/31/2023 3:32 PM CDT [facility] Comment:The Hold HLA specime n has been received into the lab and will be held for 5 years at 4 degrees. Blood BLOOD SPECIMEN / Unknown 07/23/2023 2:05 PM CDT 07/31/2023 2:06 PM CDT Alan Davenport MD LAB - BLOOD BANK ORDERABLES F inal Result [facility] [address] documented in this encounter Visit Diagnoses Not on filedocumented in this encounter Additional Health Concerns Infection Onset Date Last Indicated Resolved Time COVID-19 Under Investigation 09/13/2024 09/13/2024 09/13/2024 6:36 AM CDT documented as of this encounter Care Teams Vehicle Service Attendant Relationship Specialty Start Date End Date Jeff Strickland MD [address] [place] [address] PCP - General 03/05/18 [place] [address] [address] Orthopedic Surgery 03/28/17 documented as of this encounter
--- OUTSIDE RECORDS SUMMARY | 2024-11-08 22:10 | XMS_ITS | Clinical Summary ---
Author Organization [facility] Address [facility]6 [place] [address] Care Team Providers Care Territory Representative Name Role Phone Jeff Strickland MD Primary Care Provider [phone] Allergies Active Allergy Reactions Criticality Noted Date [...] by mouth nightly at bedtime. Active Multiple Vitamins-Shirley als (PRESERVISION AREDS 2 OR) Take 1 [...] drink = 0.6 oz pur e alcohol) [facility] Utilities Answer Date Recorded In the past 12 months has th e electric, gas, oil, or water [employer] threatened to shut off services in your [...] slept in a half-way (including now)? 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
--- OUTSIDE RECORDS SUMMARY | 2024-11-08 22:10 | XMS_ITS | Clinical Summary ---
Author Organization [facility] Address [address] [place] [address] Care Team Providers Care Dental Mechanic Name Role Phone Jeff Strickland MD [...] mouth daily. Active nystatin-triamc inolone (MYCOLOG II) 198284-6.1 UNIT/GM-% Cream 5 Active ondansetron (ZOFRAN-ODT) 4 [...] 10/29/2024 Telephone [facility] - Cardiology [facility] #[address] [place] [address] Suly Smith APRN, VESSEL BUILDER 10/15/2024 Telephone [facility] Cardiology [facility] [address] [place] [address] Hannah Goodman MD 10/14/2024 2:40 PM CDT Clinical Support [facility] [address] [place] [phone] [facility] Cardiology Dressing change (Primary Dx) Discharge [...] Medical [facility] - [facility]iology - [facility] [place] [address] Hannah Goodman MD 2 [facility] NORY [facility] [address] [place] [address] 04/11/2025 11:30 AM COLLECTIONS AGENT Office Visit [facility] - Cardiology - [address] [place] [address] Maylin Cutler, 2 [facility] [address] [place] [address] Health Maintenance Due Date Last Done Comments [...] topic Insurance MEDICARE C AETNA Care Teams Dental Mechanic Relationship Specialty Start Date End Date Jeff Strickland MD [address] [place] [address] PCP - General Family Medicine 10/14/24
--- OUTSIDE RECORDS SUMMARY | 2024-11-08 22:10 | XMS_ITS | Encounter Summary ---
Author Organization [facility] Address [facility] [place] [address] Care Team Providers Care Stamp Presser Name Role Phone Deandre Bojorquez MD Unavailable [phone] Jeff Strickland MD Primary Care Provider [phone] Encounter Details Date Type Department Care Team (Late st Contact Info) Description 11/21/2023 Lab Requisition [facility] MAIN LAB [address] [place] [phone] Alan Davenport MD 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 Answer Date of Assessment Author No 08/04/2020 12:15 PM CDT Monique Suráez RN * Is person blind or have [...] Info) Description 11/12/2024 8:00 AM CDT Appointment [facility] IVR [address] [place] [phone] Elroy Holcomb MD 1225 [facility] 2L DIV [place] [address] 12/06/2024 10:40 AM CDT Office Visit [facility] - Endocrinology [address] [place] [address], [place] [address] Marbin Flores MD [address] [facility] DIV OF ABD [place] [address] Niraj Turner MD 1225 [facility] 2L [place] [address] documented as of this encounter Procedures Procedure Name Priority Date/Time Associated Diagnosis Comments HOLD HLA SPECIMEN Routine 11/18/2023 12: 16 PM CDT documented in this encounter Results * HOLD HLA SPECIMEN (11/18/2023 12:16 PM CDT) Hold HLA Specimen 11/21/2023 1:31 PM CDT [facility] Comment:The Hold HLA specime n has been received into the lab and will be held for 5 years at 4 degrees. Blood BLOOD SPECIMEN / Unknown 11/18/2023 12:16 PM CDT 11/21/2023 12:17 PM CDT Alan Davenport MD LAB - BLOOD BANK ORDERABLES F inal Result [facility] [address] documented in this encounter Visit Diagnoses Not on filedocumented in this encounter Additional Health Concerns Infection Onset Date Last Indicated Resolved Time COVID-19 Under Investigation 09/13/2024 09/13/2024 09/13/2024 6:36 AM CDT documented as of this encounter Care Teams Stamp Presser Relationship Specialty Start Date End Date Jeff Strickland MD [address] [place] [address] PCP - General 03/05/18 [place] [address] [address] Orthopedic Surgery 03/28/17 documented as of this encounter
--- OUTSIDE RECORDS SUMMARY | 2024-11-08 22:10 | XMS_ITS | Encounter Summary ---
Author Organization [facility] Address [address] [place] [address] Care Team Providers Care Senior Research Project Manager Name Role Phone Deandre Bojorquez MD Unavailable [phone] Jeff Strickland MD Primary Care Provider [phone] Encounter Details Date Type Department Care Team (Late st Contact Info) Description 02/04/2024 Lab Requisition [facility] MAIN LAB [address] [place] [phone] Alan Davenport MD [facility]1 [facility] OF ABD TRANSPL[place] [address] Social History Tobacco Use Types Packs/Day Years Used Date Smoking Tobacco: Never Smokeless Tobacco: Never Alcohol Use Standard Drinks/Week Comments Not Currently 0 (1 standard drink = 0.6 oz pur e alcohol) socially in past Sex and Gender Information Value Date Recorded Sex Assigned at Male 07/02/2021 2:37 PM CDT 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 2L DIV OF [place]ASCULAR [place] [address] 12/06/2024 10:40 AM CDT Office Visit [facility] - Endocrinology [address] [place] [address], [place] [address] Marbin Flores MD [address] [facility] DIV OF ABD TRANSPL[place] [address] Niraj Turner MD 1225 [facility] 2L [place] [address] documented as of this encounter Procedures Procedure Name Priority Date/Time Associated Diagnosis Comments HOLD HLA SPECIMEN Routine 01/27/2024 3:2 3 PM NUCLEAR LOGGING ENGINEER documented in this encounter Results * HOLD HLA SPECIMEN (01/27/2024 3:23 PM NUCLEAR LOGGING ENGINEER) Hold HLA Specimen 02/04/2024 4:31 PM NUCLEAR LOGGING ENGINEER [facility] Comment:The Hold HLA specime n has been received into the lab and will be held for 5 years at 4 degrees. Blood BLOOD SPECIMEN / Unknown 01/27/2024 3:23 PM NUCLEAR LOGGING ENGINEER 02/04/2024 3:23 PM NUCLEAR LOGGING ENGINEER Alan Davenport MD LAB - BLOOD BANK ORDERABLES F inal Result [facility] [address] documented in this encounter Visit Diagnoses Not on filedocumented in this encounter Additional Health Concerns Infection Onset Date Last Indicated Resolved Time COVID-19 Under Investigation 09/13/2024 09/13/2024 09/13/2024 6:36 AM CDT documented as of this encounter Care Teams Senior Research Project Manager Relationship Specialty Start Date End Date Jeff Strickland MD [address] [place] [address] PCP - General 03/05/18 [place] [address] [place] [address] Orthopedic Surgery 03/28/17 documented as of this encounter
--- OUTSIDE RECORDS SUMMARY | 2024-11-08 22:10 | XMS_ITS | Encounter Summary ---
Author Organization [facility] Address [facility] [place] [address] Care Team Providers Care Sand Mill Operator Name Role Phone Deandre Bojorquez MD Unavailable [phone] Jeff Strickland MD Primary Care Provider [phone] Encounter Details Date Type Department Care Team (Late st Contact Info) Description 03/30/2024 Lab Requisition [facility] MAIN LAB [address] [place] [phone] Alan Davenport MD [facility]1 [facility] [place] [address] Social History Tobacco Use Types Packs/Day Years Used Date Smoking Tobacco: Never Smokeless Tobacco: Never Alcohol Use Standard Drinks/Week Comments Not Currently 0 (1 standard drink = 0.6 oz pur e alcohol) socially in past Sex and Gender Information Value Date Recorded Sex Assigned at Male 07/02/2021 2:37 PM CDT Legal Sex Male 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 [employer] 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 Gender Identity Male 07/02/2021 2:37 PM CDT [...] Info) Description 11/12/2024 8:00 AM CDT Appointment [facility] IVR [address] [place] [phone] Elroy Holcomb MD 1225 [facility] 2L [place] [address] 12/06/2024 10:40 AM CDT Office Visit [facility] Group - Endocrinology [address] [place] [address], [place] [address] Marbin Flores MD [address] [facility] DIV [place] [address] Niraj Turner MD 1225 [facility] 2L [place] [address] documented as of this encounter Procedures Procedure Name Priority Date/Time Associated Diagnosis Comments HOLD HLA SPECIMEN Routine 03/25/2024 2:5 1 PM PRESIDENT/GM PRODUCTION [employer] LIVE EXPERIENCES documented in this encounter Results * HOLD HLA SPECIMEN (03/25/2024 2:51 PM PRESIDENT/GM PRODUCTION & LIVE EXPERIENCES) Hold HLA Specimen 03/30/2024 4:01 PM PRESIDENT/GM PRODUCTION & LIVE EXPERIENCES [facility] Comment:The Hold HLA specime n has been received into the lab and will be held for 5 years at 4 degrees. Blood BLOOD SPECIMEN / Unknown 03/25/2024 2:51 PM PRESIDENT/GM PRODUCTION & LIVE EXPERIENCES 03/30/2024 2:51 PM PRESIDENT/GM PRODUCTION & LIVE EXPERIENCES Alan Davenport MD LAB - BLOOD BANK ORDERABLES F inal Result [facility] [address] documented in this encounter Visit Diagnoses Not on filedocumented in this encounter Additional Health Concerns Infection Onset Date Last Indicated Resolved Time COVID-19 Under Investigation 09/13/2024 09/13/2024 09/13/2024 6:36 AM CDT documented as of this encounter Care Teams Sand Mill Operator Relationship Specialty Start Date End Date Jeff Strickland MD [address] [place] [address] PCP - General 03/05/18 [place] [address] [place] [address] Orthopedic Surgery 03/28/17 documented as of this encounter
--- OUTSIDE RECORDS SUMMARY | 2024-11-08 22:11 | XMS_ITS | Encounter Summary ---
Author Organization [facility] Address [address] [facility] [place] [address] Care Team Providers Care Hvac Installation Technician Name Role Phone Deandre Bojorquez MD Unavailable [phone] Jeff Strickland MD Primary Care Provider [phone] Reason for Visit * Reason Onset Date Comments Post-Op 09/03/2024 Encounter Details Date Type Department Care Team (Late st Contact Info) Description 09/03/2024 Telephone [facility] - Cardiology [address] [facility], [facility] [address] [place] [address] Hannah Goodman MD [address] [facility] CARDIOLOGY [address]L [place] [address] Post-Op Social History Tobacco Use Types Packs/Day [...] hard at all 09/04/2024 [facility] [place] [employer] of Occupat ional Health - Occupational Stress [...] PM CDT Legal Sex Male 10:14 PM 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 IVR [address] [place] [phone] Elroy Holcomb MD 1225 [facility] 2L [place] [address] 12/06/2024 10:40 AM CDT Office Visit [facility] - Endocrinology [address] [place] [address], [place] [address] Marbin Flores MD 1201 [facility] DIV OF [place] [address] Niraj Turner MD [facility]5 [facility] 2L [place] [address] documented as of this encounter Visit Diagnoses Not on filedocumented in this encounter Additional Health Concerns Infection Onset Date Last Indicated Resolved Time COVID-19 Under Investigation 09/13/2024 09/13/2024 09/13/2024 6:36 AM CDT documented as of this encounter Care Teams Hvac Installation Technician Relationship Specialty Start Date End Date Jeff Strickland MD [address] [place] [address] PCP - General 03/05/18 [place] [address] [address] [place] [address] Orthopedic Surgery 03/28/17 documented as of this encounter
--- OUTSIDE RECORDS SUMMARY | 2024-11-08 22:11 | XMS_ITS | Encounter Summary ---
Author Organization [facility] Address [address] [place] [address] Care Team Providers Care Manager Portable Name Role Phone Deandre Bojorquez MD Unavailable [phone] Jeff Strickland MD Primary Care Provider [phone] Encounter Details Date Type Department Care Team (Late st Contact Info) Description 09/10/2024 Telephone [facility] - Centralized Scheduling [facility] [place] [address] Niraj Turner MD [facility] [place] [address] Social History Tobacco Use Types Packs/Day Years [...] and heating? Not hard at all 09/14/2024 [facility] of Occupat [facility] - Occupational Stress Questionnaire Answer Date [...] in a group home (including now)? 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 2L [place] [address] 12/06/2024 10:40 AM CDT Office Visit [facility] Group - Endocrinology 1225 [facility], [place] [address] Marbin Flores MD [address] [facility] DIV OF [place] [address] Niraj Turner MD 1225 [facility] 2L [place] [address] documented as of this encounter Visit Diagnoses Not on filedocumented in this encounter Additional Health Concerns Infection Onset Date Last Indicated Resolved Time COVID-19 Under Investigation 09/13/2024 09/13/2024 09/13/2024 6:36 AM CDT documented as of this encounter Care Teams Manager Portable Relationship Specialty Start Date End Date Jeff Strickland MD [address] [place] [address] PCP - General 03/05/18 [place] [address] [place] [address] Orthopedic Surgery 03/28/17 documented as of this encounter
--- OUTSIDE RECORDS SUMMARY | 2024-11-08 22:11 | XMS_ITS | Clinical Summary ---
Author Organization [facility] [employer] Address [address] [place] [address] Care Team Providers Care Admissions Dean Name Role Phone Deandre Bojorquez MD Unavailable [phone] Jeff Strickland MD Primary Care Provider [phone] Source Comments [facility],non-owned Affiliates and Associated Physician Practices is amultiple site organization consisting of ambulatory clinics and hospital sitesin [place], [place], [place] and [place]. This disclosure is being madepursuant to the Care Everywhere program and may not contain all information available regarding this patient. Last updated 17.[facility] Allergies Active Allergy Reactions Criticality [...] 80 MG tabletIndication s:Coronary artery disease involving peoria coronary artery of peoria heart without angina pectoris Take 1 (one) tablet by mouth once daily 90 tablet 3 12/05/19 24 Active B Dfetvnx-B-Euqmy Acid (Dialyvite 800) 0.8 MG 1 tablet Orally Once a day for 30 day(s) Active lisinopril (Prinivil; Zestril) 20 MG tabletIndication s:Coronary artery disease involving peoria coronary artery of peoria heart without angina pectoris,Resista nt hypertension Take [...] Low Dose 81 MG tabletIndication s:CAD in peoria artery TAKE 1 TABLET BY MOUTH ONCE DAILY 90 tablet 3 08/24/19 25 Active HYDROcodone-acet aminophen ([place]) 5-325 MG tablet Take 1 (one) tablet [...] not taking.Reported on 10/19/2024 nystatin-triamci nolone (Mycolog) 016233-2.1 UNIT/GM-% cream 10/06/19 025 Discontin ued(List Clean-Up) [...] -consider sevelamer but will defer to outpt division head -avoid nephrotoxic agents, and dose meds renally [...] Plan (09/24/2024 6:20 AM CDT): {[facility] Quick Recap - Optional:56154:::1} -continue home coreg 25 mg BID, furosemide [...] -consider sevelamer but will defer to outpt division head -avoid nephrotoxic agents, and dose meds renally -replete lytes PRN Assessment & Plan (09/24/2024 6:20 AM CDT): {[facility] Quick Recap - Optional:47397:::1} - pt missed PD 09/23 due to [...] Plan (09/24/2024 6:20 AM CDT): {[facility] Quick Recap - Optional:22717:::1} -continue home coreg 25 mg BID, furosemide [...] if vessel amenable to PCI Atherosclerosis of peoria ar teries of the extremities with ulceration [...] Plan (09/24/2024 6:20 AM CDT): {[facility] Quick Recap - Optional:24032:::1} -continue home coreg 25 mg BID, furosemide [...] Plan (09/24/2024 6:20 AM CDT): {[facility] Quick Recap - Optional:89920:::1} - home glargine 35 units daily with [...] were not included. Grace Interiano 1955 Referring Hide Trimmer: Alan Mccall Dialysis Info: Type: PD--> HD-->PD Time: 01/17/2020 Blood Type: O NEG Body mass index is 37.54 kg/m . ALERTS: Dr. Mendoza following enhancing lesion noted to upper pole of the left kidney. IR biopsy confirming oncocytoma in 07/2020. Smoked Meat Preparer: Nadia Stock MD ESRD r/t DM2 and HTN Past Medical History: Diagnosis Date Arthropathy Dr Strickland manages. CHF (congestive heart failure) (HCC) 2 yrs ago Central Service Technician is Dr. Becerra in [place]. CKD (chronic kidney disease), stage V (HCC) Community acquired pneumonia 2018 [facility] hospitalized. Diabetes mellitus (HCC) 20 years. [facility]. Smoked Meat Preparer Dr. Davis at [place]. 03/26/21 last seen. Esophageal reflux takes med ESRD (end stage renal disease) (HCC) on PD as of 11/10/20 ESRD on peritoneal dialysis (HCC) Hypercholesteremia 5-10 yrs meds Hypertension 40's takes meds. Hypothyroidism meds 20 years Kidney stones 5-6 years ago had 2 in the same year. No urologist. Malignancy (HCC) right kidney 2012 Obstructive sleep apnea [address] [facility] remember doctors name SHABNAM on CPAP Renal cell carcinoma (HCC) [address] [place] Pruett surgeon. followed up every 6 [...] Complaint: Memory loss History of Presenting Illness: Grcae Interiano is a 69 year old male [...] recently was assessed by his PCP at [facility] who performed short blessed [...] in the presence of Richard Cornelius MD, (founder president and ceo). > Interpreting Provider: Raymundo Hanson MD on [...] CL TI [chronic limb threatening ischemia] # Wallace class V # Peripheral artery disease -I [...] RTC In 2 to 3 weeks at [place] (as per patient and family's request) All [...] of the time was also spent in csys-pr-xwrd interaction with the patient as well as formulating a plan for management. Thank you for allowing us to participate in the care of your patient and please do not hesitate to reach out to us if any questions or concerns. Yanna Goodman MD MPH Peripheral Angiogram: 08/18/2024 (PAD - L LE peripheral angiogram/ EXTRACORPOREAL CIRCULATION SPECIALIST/stenting) Conclusion Left leg angiogram showed left AT severe diffuse disease with multiple subtotal occlusion and left PT severe diffuse disease with ANALYTICAL CHEMIST of distal PT without clear reconstitution. Successful [...] of Plavix. -recommend close follow up with firer glost kiln and follow up with me in clinic [...] 0.018 CXI microcatheter with multiple wires(Command 18/command 14/Lion Trainer 200) to get to great toe branch of dorsalis pedis using cushion mat maker [address]. - the AT-DP lesion was dilated with balloons mentioned in figure. - We turn our attention to PT. We crossed the PT ANALYTICAL CHEMIST with 0.018 CXI microcatheter with multiple wires (command 18, command 14, Lion Trainer 200) and able to go to lateral [...] using angiography. Left Posterior Tibial Ost L EXTRACORPOREAL CIRCULATION SPECIALIST to Dist L EXTRACORPOREAL CIRCULATION SPECIALIST lesion is 100% stenosed. Stenosis was measured using angiography. Intervention Ost L ROSETTA to Dist L ROSETTA lesion Angioplasty Angioplasty independent of stent deployment was performed using a standard balloon. The balloon used was Cath Deadeye Marks[employer]n Emrg Mr Wh 1.5Mm 144Cm 15Mm 2. Angioplasty Angioplasty prior to stent deployment was performed using a standard balloon. The balloon used was [employer] Dil Nanocross Elt 2-1.5Mm 150. Angioplasty Angioplasty [...] 10% residual stenosis post intervention. Ost L EXTRACORPOREAL CIRCULATION SPECIALIST to Dist L EXTRACORPOREAL CIRCULATION SPECIALIST lesion Angioplasty Angioplasty independent of stent deployment [...] 2 diabetes, hyperlipidemia, hypertension was referred to [facility] for nonhealing left great toe ulcer after [...] CL TI [chronic limb threatening ischemia] # Wallace class V # Peripheral artery disease -I [...] 2 to 3 weeks [ ] f/u Areil Herzog, plan discussed with her. Other cardiac [...] of the time was also spent in qivk-am-exwc interaction with the patient as well as [...] or MRA given ESRD 4. Atherosclerosis of peoria coronary artery of peoria heart without angina pectoris 5. Hypertriglyceridemia -H/o [...] right eye and seeing ophthalmology for this. [id number] Gabe-Abida DP, Nikunj L, Nba J, Abner [...] opinion statement. Am J Transplant. 2020;21(2):460-474. doi: 10.1111/ajt.12712. Epub 2019Dec 09. PMID: [id number]. Urology: 08/04/2024 Attestation signed by Thomas Mendoza [...] CK7 and BerEP4. If this biopsy is direct sales representative of the entire lesion, it [...] Krystal Abel RN Sent: 03/28/2022 2:07 PM FRENCH FOLDER To: Martinez Sandhu MD, * Papito. I [...] Krystal Abel RN [facility], [facility] Line Patroller [phone] endoscopic resection of a sellar mass: 11/22/2021 [...] a formal visual hay exam with his commodity lead. We reviewed the surgical pathology report. He may restart his baby aspirin. At this time, I recommend a follow up MRI pituitary protocol in 3- 6 months with a visit with me after imaging and patient is agreeable. Strict return precautions were reviewed. CH FOLDER Pertinent Previous Committee Presentations: 10/14/2024 Committee Review [...] (higher cognitive impairment) done at outside hospital. [facility] Neuro notes sxs consistent with mild cognitive impairment. Reviewed brain MRI and CT reports. Discussed [facility] MRI report noting diffuse cerebral volume loss, slightly more than expected. Also reviewed PVD and cardiac history. Per team, no longer a candidate for transplant d/t multiple comorbidities. 07/01/2024 Committee Review Decision: Remain Inactive Committee Discussion Details: Reviewed calcifications on CT. CT reviewed at [facility] 06/24/[address] Flores. He deferred decision asking for review by additional surgeons. CT reviewed today with Dr Davenport and Dr Lane. Calcifications doable. Pt to remain listed for transplant (inactive pending additional work up). 12/19/2022 Committee Review Decision: Make Inactive Committee Discussion Details: Pt was presented at [facility] to make inactive on the [...] mg/kg Committee Discussion Details: Pt brought to [facility] to discuss possible listing. -Reviewed [...] -Follow up imaging was previously discussed at [facility] on 03/28/2022 and again today. Radiology unable to rule out cancer on imaging. Team decision after [facility] 03/28/2022 was to have pt [...] 03/28/2022: Committee Discussion Details: Pt brought to [facility] to review recent CT imaging [...] again noted. Slightly increased in size. -Dr. aSndhu discussed conversations had with 2 radiologist. Team [...] 09/27/2021: Committee Discussion Details: Pt brought to [facility] due to Pituitary tumor. -Reviewed [...] 08/10/2020: Committee Discussion Details: Pt brought to [facility] to discuss recent PCI to [...] calculated left ventricular ejection fraction of 54%. [facility]: 07/21/2024 Conclusion 2-vessel CAD with prior [...] 6Fr 1.25Mm Diamondback catheter and using a [employer] [facility] Diamondback 360 Viperwire Adv wire. [...] is a 0% residual stenosis post intervention. [facility]: 08/04/2020 HEMODYNAMIC FINDINGS: LVEDP 18 mmmHg [...] ANTICOAGULATION DURING PCI: Heparin INTERVENTIONAL WIRE: A FST21 wireless pressure wire was advanced beyond the [...] nature. > Dictated by Lalit Muñoz DO (founder president and ceo). MRI Abd wwo: 08/04/2024 Findings: Lower Chest: [...] 08/02/2020. 2.Peritoneal dialysis catheter in the pelvis. Khtqz-hn-hgesymox volume ascites throughout the abdomen and pelvis, [...] impression of this social service worker that Grace Johana Meseret has several [...] to be the back up caregiver. Plan: brewery cellar worker to provide supportive services as needed. Patient remains a reasonable candidate for transplant from a psychosocial perspective. Psychiatric Consult Recommended: No Transplant Social Problems Specialist: Malinda Escamilla, GEOSCIENTIST, PARTS DEPARTMENT SUPERVISOR Abdominal Transplant Social Problems Specialist [phone] Transplant Caregiver Confirmation Note Caregiver Confirmation Date Primary Name of Primary: Harriet Interaino Relationship: spouse - Confirmed during initial assessment 01/14/2022 - EXTRACORPOREAL CIRCULATION SPECIALIST form received on 01/14/2022 - Secondary Name [...] Description 11/02/2024 1:45 PM CDT Office Visit [facility] [place] [facility] - Vascular Surgery [address] [place] [address] Elroy Holcomb MD PAD (peripheral artery disease) (Primary Dx); Amputation of left great toe 11/02/2024 Travel 10/28/2024 12:27 PM CDT - 10/28/2024 1:05 PM CDT Emergency [facility] EMERGENCY DEPARTMENT [address] [place] [address] Chest pain, unspecified type Discharge Disposition: Left Against Medical Advice/Discontinued Care 10/28/2024 1:55 AM CDT - 10/28/2024 5:16 AM CDT Emergency [facility] EMERGENCY DEPARTMENT [address] [place] [address] Charmaine Khalil MD Chest pain, unspecified type; Abdominal distension; Atypical chest pain; History of coronary angioplasty with insertion of stent; ESRD (end stage renal disease) on dialysis (HCC); PAD (peripheral artery disease) Discharge Disposition: Left Against Medical Advice/Discontinued Care 10/27/2024 1:30 AM CDT - 10/27/2024 11:59 PM CDT Hospital Encounter [facility] MAIN LAB [address] [place] [address] Discharge Disposition: Home or Self Care 10/27/2024 Travel 10/26/2024 2:00 PM CDT Office Visit [facility] - Vascular Surgery [address] [place] [phone] Elroy Holcomb MD PAD (peripheral artery disease) (Primary Dx) 10/26/2024 Travel 10/25/2024 Telephone [facility] - Vascular Surgery [address] [place] [phone] Elroy Holcomb MD Pain; Appointment 10/21/2024 12:14 PM CDT - 10/21/2024 11:59 PM CDT Hospital Encounter [facility] LAB OP DRAW STATION [address] [place] [address] Discharge Disposition: Home or Self Care 10/21/2024 10:40 AM CDT Office Visit [facility] - Neurology [address] [place] [phone] Becky Wilson MD Confusion (Primary Dx); Memory loss 10/21/2024 Telephone [facility] - Neurology [address] [place] [phone] Becky Wilson MD Record Request 10/21/2024 Travel 10/19/2024 4:33 PM CDT - 10/19/2024 6:50 PM CDT Emergency [facility] EMERGENCY DEPARTMENT [address] [place] [phone] Kalani Braswell MD Medication side effect (Primary Dx); Lightheadedness; Acute nonintractable headache, unspecified headache type; At risk for polypharmacy; Hypokalemia Discharge Disposition: Home or Self Care 10/19/2024 1:00 PM CDT Office Visit [facility] - Vascular Surgery [address] [place] [phone] Elroy Holcomb MD 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) (Primary Dx); PAD (peripheral artery disease) 10/19/2024 Travel 10/17/2024 9:19 PM CDT - 10/17/2024 9:53 PM CDT Emergency [facility] EMERGENCY DEPARTMENT [address] [place] [address] Other chest pain (Primary Dx) Discharge Disposition: Left Against Medical Advice/Discontinued Care 10/17/2024 Travel 10/14/2024 Telephone [facility] TRANSPLANT [address] [place] [phone] Savanna Edwards RN Kidney Transplant Evaluation 10/13/2024 1:00 PM CDT Office Visit [facility] - Cardiology [address] [facility] [address] [place] [phone] Maylin Cutler DO Memory loss (Primary Dx); Chronic diastolic heart failure (HCC); Resistant hypertension; ESRD on PD; Abnormal stress test; Coronary artery disease involving peoria coronary artery of peoria heart without angina pectoris; Hypertriglyceridemia; Type 2 diabetes mellitus with other specified complication, with long-term current use of insulin (HCC); PAD (peripheral artery disease) 10/13/2024 Travel 10/09/2024 5:15 PM CDT - 10/09/2024 10:17 PM CDT Emergency [facility] EMERGENCY DEPARTMENT [facility] [place] [address] Sukhwinder Wagner MD Short of breath on exertion; Memory loss Discharge Disposition: Home or Self Care 10/09/2024 Travel 10/07/2024 4:34 PM CDT - 10/07/2024 8:44 PM CDT Emergency [facility] EMERGENCY DEPARTMENT [address] [place] [address] Richard Sylvester MD Urinary tract infection associated with indwelling urethral catheter, initial encounter (Primary Dx); Headache, unspecified headache type; Hypotension, unspecified hypotension type Discharge Disposition: Home or Self Care 10/07/2024 Travel 10/05/2024 1:45 PM CDT Office Visit [facility] - Vascular Surgery [address] [place] [phone] Guy Messina MD Williams, Michael S, MD Amputation of left great toe (Primary Dx); PAD (peripheral artery disease) 10/05/2024 11:24 AM CDT - 10/05/2024 11:59 PM CDT Hospital Encounter [facility] VASCULAR US [address] [place] [address] Guy Messina MD Discharge Disposition: Home or Self Care 10/05/2024 Travel 10/04/2024 11:40 AM CDT Office Visit [facility] - Cardiology [address] [facility] [address] [place] [address] Hannah Goodman MD PAD (peripheral artery disease) (Primary Dx); Resistant hypertension; Chronic diastolic heart failure (HCC); Type 2 diabetes mellitus with other specified complication, with long-term current use of insulin (HCC) 10/04/2024 Travel 09/27/2024 Telephone [facility] - Endocrinology [address] [place] [phone] Niraj Turner MD Med Question 09/27/2024 Telephone [facility] - Endocrinology [address] [place] [phone] Niraj Turner MD Appointment 09/24/2024 Results Follow-Up [facility] Early Admission Unit [address] [place] [address] Angel Crook MD 09/24/2024 Telephone [facility] - Endocrinology [address] [place] [phone] Niraj Turner MD Appointment 09/23/2024 10:57 PM CDT - 09/25/2024 3:57 PM CDT Hospital Encounter [facility] Early Admission Unit [address] [place] [address] Jennifer Winn MD Morreale, Peter J III, MD Wheeler, Joseph R, MD Internal Medicine Discharge Disposition: Home or Self Care 09/23/2024 Travel 09/23/2024 Telephone [facility] - Cardiology [address] [facility] [address] [place] [address] Hannah Goodman MD Question 09/20/2024 Telephone [facility] - Endocrinology [address] [place] [phone] Niraj Turner MD Appointment 09/18/2024 3:46 PM CDT - 09/19/2024 12:11 AM CDT Emergency [facility] EMERGENCY DEPARTMENT [address] [place] [phone] Gricel Benedict MD Lightheadedness (Primary Dx); Transient hypotension; Generalized weakness Discharge Disposition: Home or Self Care 09/18/2024 Travel 09/17/2024 Telephone [facility] - Endocrinology [facility] [place] [address] Niraj Turner MD Appointment 09/17/2024 Telephone [facility] - Centralized Scheduling [address] [place] [address] Niraj Turner MD Appointment 09/17/2024 Telephone Transitional Care at [facility] [address] [place] [phone] Teressa Lopez, automatic machine attendant 09/14/2024 10:50 AM CDT - 09/14/2024 12:29 PM CDT Surgery [facility] RITO OP [address] [place] [address] Elroy Holcomb MD LEFT GREAT TOE AMPUTATION 09/14/2024 10:44 AM CDT Anesthesia Event [facility] RITO OP [address] [place] [address] Olu Taylor, Elroy Costa CAA 09/12/2024 10:15 PM CDT - 09/16/2024 5:41 PM CDT Hospital Encounter [facility] SHORT STAY UNIT [address] [place] [address] Yuriy Lopez MD Morreale, Peter J III, MD Fazeel, Hafiz Muhammad, MD Emergency Medicine Discharge Disposition: Home Health Care [facility] 09/12/2024 Travel 09/10/2024 Telephone [facility] - Centralized Scheduling [address] [place] [phone] Niraj Turner MD 09/09/2024 Transitional Care [facility] CARE COORDINATION [address] [place] [phone] Alesia Bush RN Transitions Of Care 09/03/2024 9:47 PM CDT - 09/08/2024 3:08 PM CDT Hospital Encounter [facility] 6S ACUTE [address] [place] [phone] Charmaine Khalil MD Hoque, Farzana, MD Smutz, Kellen J, Allen Tapia MD Syed, Cezar Gauthier MD Emergency Medicine Discharge Disposition: Home or Self Care 09/03/2024 Travel 09/03/2024 Telephone [facility] - Cardiac Rehab [address] [place] [address] Aracely Tracy, front end mechanic (States has discussed with pt and would like to schedule cardiac rehab. Discussed pt health, pt's expresses concern re: overall health, leg weakness. Pt is ambulatory. Discussed options with and encouraged to schedule appt with PCP and also to speak with ux research associate. She and pt do not want to delay starting cardiac rehab. ) 09/03/2024 Telephone [facility] - Cardiology [address] [facility] [address] [place] [address] Hannah Goodman MD Post-Op 09/02/2024 Telephone [facility] - Cardiac Rehab [address] [place] [phone] Aracely Tracy, front end mechanic 09/01/2024 10:50 AM CDT - 09/01/2024 12:36 PM CDT Surgery [facility] - Cardiac Real Estate Job Titles [address] [place] [phone] Vanessa Medina MD Temporary Pacemaker Insertion 09/01/2024 8:28 AM CDT - 09/01/2024 5:55 PM CDT Hospital Encounter [facility] RITO OP [address] [place] [address] Vanessa Medina MD Cardiac Catheterization Discharge Disposition: Home or Self Care 09/01/2024 Travel 08/30/2024 10:00 AM CDT Office Visit [facility] - Cardiology [address] [place], [address] [address] Hannah Goodman MD PAD (peripheral artery disease) (Primary Dx); Arterial leg ulcer (HCC); ESRD on PD 08/21/2024 Refill [facility] - Cardiology [facility] [place], [address] [address] Letha Christine APRN-BUZZLE BUFFER Refill Request 08/18/2024 10:05 AM CDT - 08/18/2024 12:13 PM CDT Surgery [facility] - Cardiac Real Estate Job Titles [address] [place] [address] Hannah Goodman MD Angiogram - Peripheral 08/18/2024 9:14 AM CDT - 08/19/2024 3:26 PM CDT Hospital Encounter [facility] SHORT STAY UNIT [address] [place] [address] Hannah Goodman MD Cardiac Catheterization Discharge Disposition: Home or Self Care 08/09/2024 1:40 PM CDT Office Visit [facility] - Cardiology [address] [place], [address] [address] Hannah Goodman MD 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) (Primary Dx); Resistant hypertension 08/09/2024 Orders Only [facility] - Cardiology [address] [place], [address] [address] Brandi Sosa RN 08/09/2024 Travel from Last 3 Months Immunizations Immunization Administration Dates Next Due [employer] primary monoval ent 12+ yr 0.3mL Purple [...] Recorded Patient Health Questionnaire-2 Score 6 10/05/2024 [facility] of Occupat ional Health - Occupational Stress [...] in the past 12 m [facility], were you homeless or living in a usp (including now)? No 09/24/2024 Sex and Gender Information Value Date Recorded Sex Assigned at Male 07/02/2021 2:37 PM CDT Legal Sex Male 10:14 PM FRENCH FOLDER Gender Identity Male 07/02/2021 2:37 PM CDT [...] CDT Appointment [facility] IVR [address] [place] [phone] Elroy Holcomb MD [address] [facility] [address] DIV [place] [address] 12/06/2024 10:40 AM CDT Office Visit [facility] - Endocrinology [address] [place] [address], [place] [phone] Marbin Flores MD [address] [facility] ABD [place] [address] Niraj Turner MD [address] [facility] [facility] [address]L [place] [address] Health Maintenance Due Date Last Done Comments [...] this topic Medical Devices Implanted Type Area Senior Program Analyst Device Identifier Shelf Expiration Date Model / Serial / Lot Sys Cor Stent Xience Srr 3mm 18mm Rap Ex Implanted:Qty: 1 on 08/04/2020 by Javier Lan MD at [facility] Stent Coronary [employer] 06/19/2022 [id number] Description:STENT Sys Cor Stent Xience Srr 3mm 8mm Rap Ex Implanted:Qty: 1 on 08/04/2020 by Javier Lan MD at [facility] Stent Coronary [employer] 09/03/2021 [id number] Description:stent Sys Cor Stent Sng Xd Monrl 3.5mm 48mm - [id number] Implanted:Qty: 1 on 08/18/2024 by Hannah Goodman MD at [facility] [address] [employer] [id number] 09/07/2025 [id number] / [id number] / [id number] Sys Cor Stent Sng Xd Mr 4mm 24mm Dlv Sys - [id number] Implanted:Qty: 1 on 09/01/2024 by Vanessa Medina MD at [facility] [address] [employer] [id number] 10/19/2025 [id number] / [id number] / [id number] Explanted Type Area Senior Program Analyst Device Identifier Shelf Expiration Date Model / Serial / Lot Cath Pace Eltrd Biplr Dist Tip Balln Flw - [id number] Explanted:Qty: 1 on 09/01/2024 at [facility] [employer] [id number] 12/17/2025 [id number] / [id number] / [id number] Procedures Procedure Name Priority Date/Time Associated Diagnosis [...] 12:24 PM CDT Coronary artery disease involving peoria heart with angina pectoris, unspecified vessel or [...] unspecified vessel or lesion type, unspecified whether peoria or transplanted heart CCL TEMPORARY PACEMAKER INSERTION Routine 09/01/2024 2:18 PM CDT Abnormal stress test Dyspnea on exertion Pre-kidney transplant, listed Coronary artery disease with angina pectoris, unspecified vessel or lesion type, unspecified whether peoria or transplanted heart Abnormal findings on cardiac catheterization CCL CORONARY ATHERECTOMY Routine 09/01/2024 2:18 PM CDT Abnormal stress test Dyspnea on exertion Pre-kidney transplant, listed Coronary artery disease with angina pectoris, unspecified vessel or lesion type, unspecified whether peoria or transplanted heart Abnormal findings on cardiac catheterization CCL CORONARY IVUS Routine 09/01/2024 2:1 8 PM CDT Abnormal stress test Dyspnea on exertion Pre-kidney transplant, listed Coronary artery disease with angina pectoris, unspecified vessel or lesion type, unspecified whether peoria or transplanted heart Abnormal findings on cardiac catheterization CCL STAGED PERC CORONARY INTERVENTION Routine 09/01/2024 2:18 PM CDT Abnormal stress test Dyspnea on exertion Pre-kidney transplant, listed Coronary artery disease with angina pectoris, unspecified vessel or lesion type, unspecified whether peoria or transplanted heart Abnormal findings on cardiac catheterization GLUCOSE - POINT OF CARE Routine 09/01/2024 10:00 AM CDT CBC W/O DIFFERENTIAL ANDIE 09/01/2024 9:57 AM CDT Coronary artery disease with angina pectoris, unspecified vessel or lesion type, unspecified whether peoria or transplanted heart Abnormal findings on cardiac catheterization BASIC METABOLIC PANEL (CALCIUM TOTAL) ANDIE 09/01/2024 9:57 AM CDT Coronary artery disease with angina pectoris, unspecified vessel or lesion type, unspecified whether peoria or transplanted heart Abnormal findings on cardiac [...] Routine 08/18/2024 2:33 PM CDT 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) ACT LR - POCT ([facility]) Routine 08/18/2024 2:08 PM CDT ACT LR - POCT ([facility]) Routine 08/18/2024 1:24 PM CDT ACT LR - POCT ([facility]) Routine 08/18/2024 12:57 PM CDT ACT LR - POCT ([facility]) Routine 08/18/2024 12:13 PM CDT ANGIOPLASTY PERIPHERAL ARTERY 08/18/2024 10:49 AM CDT 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) GLUCOSE - POINT OF CARE Routine 08/18/2024 10:15 AM CDT BASIC METABOLIC PANEL (CALCIUM TOTAL) ANDIE 08/18/2024 10:11 AM CDT 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) CBC W/O DIFFERENTIAL ANDIE 08/18/2024 10:01 AM CDT 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) HEPATITIS C ANTIBODY Routine 06/16/2024 4:15 PM CDT Pre-kidney transplant, listed ESRD (end stage renal disease) (HCC) 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, without long-term current use of insulin (HCC) Hypertension, unspecified type Oncocytoma Kidney stones SHABNAM on CPAP Coronary artery disease involving peoria coronary artery of peoria heart, unspecified whether angina present from Last [...] <=35 ng/L 10/28/2024 3:13 AM CDT [facility] Delta Troponin I HS 10/28/2024 3:13 AM CDT [facility] Comment:Delta value intentio tito not calculated. Baseline to 1 hour specimen collection interval exceeded. Blood BLOOD SPECIMEN / Unknown Venipuncture / Unknown 10/28/2024 2:31 AM CDT 10/28/2024 2:37 AM CDT Savanna Mcfarlane MD LAB - CHEMISTRY ORDERABLES Fi nal Result Performing Organization Address [facility]/ZIP Co de Phone Number [address] [address], [place] [phone] * LACTIC ACID BLOOD REFLEX TO REPEAT (10/28/2024 2:31 AM CDT) Only the most recent of5 resultswithin the time period is included. Lactic Acid-Stat 1.9 <=2.0 mmol/L 10/28/2024 3:06 AM CDT [facility] Blood BLOOD SPECIMEN / Unknown Venipuncture / Unknown 10/28/2024 2:31 AM CDT 10/28/2024 2:37 AM CDT us Savanna Mcfarlane MD LAB - CHEMISTRY ORDERABLES Fi nal Result Performing Organization Address [facility] Co de Phone Number [address] [address], [place] [phone] * XR Chest 2Vw (10/27/2024 11:58 PM CDT) Only the most recent of4 resultswithin the time period is included. Anatomical Region Laterality Modality Chest Digital Radiogra phy 10/28/2024 12:0 2 AM CDT Narrative 10/28/2024 3:32 AM CDT PROCEDURE: XR CHEST 2VW, DATE/TIME OF EXAM: 10/27/2024 11:58 PM, LOCATION [facility] INDICATION: R07.9: Chest pain, unspecified type ADDITIONAL [...] shoulders. > Dictated by Branden Jha MD, (founder president and ceo). > Dictated by Clinical Microbiologist I, Blake Plasencia MD have personally reviewed and interpreted this examination/study. > Interpreting Provider: Blake Plasencia MD on 10/28/2024 3:32 AM Procedure Note Blake Plasencia MD - 10/28/2024 PROCEDURE: XR CHEST 2VW, DATE/TIME OF EXAM: 10/27/2024 11:58 PM, LOCATION [facility] INDICATION: R07.9: Chest pain, unspecified type ADDITIONAL [...] shoulders. > Dictated by Branden Jha MD, (founder president and ceo). > Dictated by Clinical Microbiologist I, Blake Plasencia MD have personally reviewed and interpreted this examination/study. > Interpreting Provider: Blake Plasencia MD on 10/28/2024 3:32 AM Savanna Mcfarlane MD DIAGNOSTIC IMAGING ORDERABLES Final Result * (ABNORMAL) TROPONIN-I HIGH SENSITIVE BASELINE + 1HR (10/27/2024 11:53 PM CDT) Only the most recent of8 resultswithin the time period is included. Troponin I High Sensitive 72(H) <=35 ng/L 10/28/2024 12:49 AM CDT [facility] Blood BLOOD SPECIMEN / Unknown Venipuncture / Unknown 10/27/2024 11:53 PM CDT 10/28/2024 12:12 AM CDT us Savanna Mcfarlane MD LAB - CHEMISTRY ORDERABLES Fi nal Result [facility] [address] [place] [address], [facility] [phone] * (ABNORMAL) CBC W AUTO DIFFERENTIAL (10/27/2024 11:53 PM CDT) Only the most recent of11 resultswithin the time period is included. WBC 7.8 4.0 - 10.7 x10E9/L 10/28/2024 12:26 AM [facility] RBC Count 3.31(L) 4.30 - 5.80 x10E12/L 10/28/2024 12:26 AM [facility] Hemoglobin 9.0(L) 13.3 - 17.5 g/dL 10/28/2024 12:26 AM [facility] Hematocrit 27.9(L) 38.7 - 51.1 % 10/28/2024 12:26 AM [facility] MCV 84.3 80.0 - 98.0 fL 10/28/2024 12:26 AM [facility] MCH 27.2 26.7 - 33.6 pg 10/28/2024 12:26 AM [facility] MCHC 32.3 31.7 - 36.3 g/dL 10/28/2024 12:26 AM [facility] RDW-CV 15.9(H) 11.3 - 14.8 % 10/28/2024 12:26 AM [facility] Platelet Count 187 150 - 420 x10E9/L 10/28/2024 12:26 AM [facility] MPV 10.2 7.8 - 11.4 fL 10/28/2024 12:26 AM [facility] Neutrophil % 67.0 41.0 - 74.0 % 10/28/2024 12:26 AM [facility] Lymphocyte % 16.4(L) 17.0 - 47.0 % 10/28/2024 12:26 AM [facility] Monocyte % 14.0(H) 3.0 - 11.0 % 10/28/2024 12:26 AM [facility] Eosinophil % 1.9 0.0 - 7.0 % 10/28/2024 12:26 AM [facility] Basophil % 0.1 0.0 - 1.6 % 10/28/2024 12:26 AM [facility] Immature Granulocytes % 0.6 0.0 - 1.0 % 10/28/2024 12:26 AM [facility] Neutrophil Absolute 5.23 1.60 - 7.50 x10E9/L 10/28/2024 12:26 AM [facility] Lymphocyte Absolute 1.28 1.00 - 4.40 x10E9/L 10/28/2024 12:26 AM [facility] Monocyte Absolute 1.09(H) 0.15 - 1.00 x10E9/L 10/28/2024 12:26 AM [facility] Eosinophil Absolute 0.15 0.00 - 0.60 x10E9/L 10/28/2024 12:26 AM [facility] Basophil Absolute 0.01 0.00 - 0.13 x10E9/L 10/28/2024 12:26 AM [facility] Blood BLOOD SPECIMEN / Unknown Venipuncture / Unknown 10/27/2024 11:53 PM CDT 10/28/2024 12:13 AM CDT us Savanna Mcfarlane MD LAB - HEMATOLOGY ORDERABLES F inal Result [facility] [address] [place] [address], [facility] [phone] * (ABNORMAL) COMPREHENSIVE METABOLIC PANEL (10/27/2024 11:53 PM CDT) Only the most recent of13 resultswithin the time period is included. BUN 34(H) 7 - 26 mg/dL 10/28/2024 12:45 AM [facility] Creatinine 7.86(H) 0.71 - 1.16 mg/dL 10/28/2024 12:45 AM [facility] Sodium 132(L) 136 - 145 mmol/L 10/28/2024 12:45 AM [facility] Potassium 3.5 3.5 - 4.5 mmol/L 10/28/2024 12:45 AM [facility] Chloride 95(L) 98 - 107 mmol/L 10/28/2024 12:45 AM [facility] CO2 25 22 - 29 mmol/L 10/28/2024 12:45 AM [facility] Glucose 104(H) 70 - 99 mg/dL 10/28/2024 12:45 AM [facility] Calcium 8.5 8.4 - 10.2 mg/dL 10/28/2024 12:45 AM [facility] Protein Total 5.6(L) 6.0 - 8.3 g/dL 10/28/2024 12:45 AM [facility] Albumin 2.2(L) 3.4 - 5.0 g/dL 10/28/2024 12:45 AM [facility] Bilirubin Total 0.3 0.2 - 1.2 mg/dL 10/28/2024 12:45 AM [facility] Alkaline Phosphatase 104 40 - 150 U/L 10/28/2024 12:45 AM [facility] ALT 56(H) 5 - 55 U/L 10/28/2024 12:45 AM [facility] AST 48(H) 5 - 34 U/L 10/28/2024 12:45 AM [facility] Anion Gap 12 6 - 16 10/28/2024 12:45 AM [facility] BUN/Creatinine Ratio 4(L) 7 - 23 10/28/2024 12:45 AM [facility] Osmolality Calculated 282 275 - 295 mOsm/kg 10/28/2024 12:45 AM [facility] Albumin/Globulin Ratio 0.6(L) 1.1 - 2.3 10/28/2024 12:45 AM [facility] eGFR by CKD-EPI 7(L) >=90 mL/min/1.7 3 m2 10/28/2024 12:45 AM CDT [facility] Comment:Estimated Glomerular Filtration Rate (eGFR) calculated using the CKD-EPI Creatinine Equation (2020), per the National Kidney Foundation and [place] [employer] Neph[employer] recommendations. Blood BLOOD SPECIMEN / Unknown Venipuncture / Unknown 10/27/2024 11:53 PM CDT 10/28/2024 12:12 AM CDT Savanna Mcfarlane MD LAB - CHEMISTRY ORDERABLES Fi nal Result Performing Organization Address City/[facility]/ZIP Co de Phone Number [address] [address], [facility] [phone] * LIPASE BLOOD (10/27/2024 11:53 PM CDT) Only the most recent of3 resultswithin the time period is included. Lipase 41 8 - 78 U/L 10/28/2024 12:45 AM CDT [facility] Blood BLOOD SPECIMEN / Unknown Venipuncture / Unknown 10/27/2024 11:53 PM CDT 10/28/2024 12:12 AM CDT Narrative [facility] - 10/28/2024 12:45 AM CDT Lipase results from the PerspecSys Alinity analyzer may not be comparable with other methodologies. Savanna Mcfarlane MD LAB - CHEMISTRY ORDERABLES Fi nal Result Performing Organization Address [facility] Co de Phone Number [address] [address], [place] [phone] * HLA ANTIBODY SCREEN LUM CLASS 2 SAB (10/27/2024 2:40 PM CDT) % PRA 0 11/04/2024 4:03 PM CDT [facility] ([place]) Class 2 LUM SAB Moderate Risk DQ6 11/04/2024 4:03 PM CDT [facility] ([facility] [facility]) Class 2 SAB Test Date [id number] 11/04/2024 4:03 PM CDT [facility] ([facility]) Comment: Methodology - Luminex Bead-Based Immunoassay. This test was developed and its performance characteristics determined by the [facility]. It has not been cleared [...] high complexity clinical laboratory testing. CLIA ID# [id number] Performed at: [facility], [facility] [place] [address] Card Cutter Helper: Steven Gonzalez, Ph.D., D([facility]), Blood BLOOD SPECIMEN / Unknown No Charge Blood Draw / Unknown 10/27/2024 2:40 PM CDT 11/01/2024 2:41 PM CDT Alan Davenport MD LAB - BLOOD BANK ORDERABLES F inal Result [facility] ([facility]) [address] * HLA ANTIBODY SCREEN LUM CLASS 1 SAB (10/27/2024 2:40 PM CDT) % PRA 0 11/04/2024 4:03 PM CDT [facility] ([facility]) Class 1 SAB Test Date [id number] 11/04/2024 4:03 PM CDT [facility] ([facility]) Comment: Methodology - Luminex Bead-Based Immunoassay. This test was developed and its performance characteristics determined by the [facility]. It has not been cleared [...] high complexity clinical laboratory testing. CLIA ID# [id number] Performed at: [facility], [facility] [place] [address] Card Cutter Helper: Steven Gonzalez, Ph.D., D([facility]), Blood BLOOD SPECIMEN / Unknown No Charge Blood Draw / Unknown 10/27/2024 2:40 PM CDT 11/01/2024 2:41 PM CDT Alan Davenport MD LAB - BLOOD BANK ORDERABLES F inal Result [facility] ([facility] [address] [place], [place] [address] * (ABNORMAL) PTH INTACT ([facility]) (10/21/2024 1:11 PM CDT) Only the most recent of2 resultswithin the time period is included. PTH Intact 316.8(H) 8.0 - 77.0 pg/mL 10/21/2024 1:56 PM CDT [facility] Blood BLOOD SPECIMEN / Unknown Lab Venipuncture / Unknown 10/21/2024 1:11 PM CDT 10/21/2024 1:23 PM CDT Becky Wilson MD LAB - CHEMISTRY ORDERABLES Fin al Result Performing Organization Address City/[facility]/ZIP Co de Phone Number [facility] [address] [place] [address], [facility] [phone] * LAB MISC TEST (10/21/2024 1:11 PM [...] Wilson MD LAB SEND OUT Final Result [facility] [address] [place] [address] * MAGNESIUM BLOOD (10/21/2024 1:11 PM CDT) Only the most recent of14 resultswithin the time period is included. Magnesium 1.6 1.6 - 2.6 mg/dL 10/21/2024 1:49 PM CDT [facility] Blood BLOOD SPECIMEN / Unknown Lab Venipuncture / Unknown 10/21/2024 1:11 PM CDT 10/21/2024 1:20 PM CDT Becky Wilson MD LAB - CHEMISTRY ORDERABLES Fin al Result Performing Organization Address [facility] Co de Phone Number [address] [address], [place] [phone] * AMMONIA (10/21/2024 1:11 PM CDT) Ammonia 30 <=72 umol/L 10/21/2024 1:32 PM CDT [facility] Blood BLOOD SPECIMEN / Unknown Lab Venipuncture / Unknown 10/21/2024 1:11 PM CDT 10/21/2024 1:15 PM CDT Becky Wilson MD LAB - CHEMISTRY ORDERABLES Fin al Result Performing Organization Address [facility] Co de Phone Number [address] [address], [place] [phone] * CT Head Wo Contrast (10/19/2024 3:03 PM CDT) Only the most recent of4 resultswithin the time period is included. Anatomical Region Laterality Modality Head Computed Tomogra phy 10/19/2024 3:11 PM CDT Impressions 10/19/2024 3:41 PM CDT IMPRESSION: 1.No acute intracranial hemorrhage, territorial infarct, or significant mass effect. Report dictated by Saroj Linda MD, MD (founder president and ceo). > Dictated by Clinical Microbiologist I, Raymundo Hanson MD have personally reviewed [...] effect. Report dictated by Saroj Linda MD, (founder president and ceo). > Dictated by Clinical Microbiologist I, Raymundo Hanson MD have personally reviewed and interpreted this examination/study. > Interpreting Provider: Raymundo Hanson MD on 10/19/2024 3:41 PM [employer] PA-C CT ORDERABLES Final Result * EKG 12-LEAD (10/19/2024 2:21 PM CDT) Only the most recent of6 resultswithin the time period is included. Ventricular Rate 64 BPM [facility] MUSE Atrial Rate 64 BPM [facility] MUSE P-R Interval 146 ms [facility] MUSE QRS Duration ms 96 ms H MUSE Q-T Interval ms 494 ms [facility] MUSE QTC Calculation (Bezet) 509 ms [facility] MUSE Calculated P Enderlin 69 degrees [facility] MUSE Calculated R Enderlin -63 degrees [facility] MUSE Calculated T Enderlin -90 degrees [facility] MUSE Interpretation EKG NORMAL SINUS RHYTHM LEFT ANTERIOR FASCICULAR BLOCK T WAVE ABNORMALITY, CONSIDER INFEROLATERAL ISCHEMIA PROLONGED QT ABNORMAL ECG . Confirmed by TSERING GOTTLIEB, DOUG ([id number]) on 10/23/2024 11:38:28 PM [facility] MUSE 10/19/2024 2:21 PM CDT 10/23/2024 11:38 PM CDT Angel Alerts PA-C ECG ORDERABLES Edite d Result - Final [facility] MUSE * (ABNORMAL) B-TYPE NATRIURETIC PEPTIDE (10/17/2024 7:33 PM CDT) Only the most recent of3 resultswithin the time period is included. BNP 471(H) <100 pg/mL 10/17/2024 10:07 PM CDT [facility] Comment: A decision threshold of [...] LAB - CHEMISTRY ORDERABLES Fi nal Result [facility] [address] [place] [phone], [facility] [phone] * XR CHEST 1VW PORTABLE (10/09/2024 7:27 PM CDT) Only the most recent of2 resultswithin the time period is included. Anatomical Region Laterality Modality Chest Digital Radiogra phy 10/09/2024 10:4 9 PM CDT Narrative 10/10/2024 1:17 AM CDT PROCEDURE: XR CHEST 1VW PORTABLE, DATE/TIME OF EXAM: 10/09/2024 7:27 PM, LOCATION [facility] INDICATION: R06.02: Short of breath on exertion ADDITIONAL CLINICAL INFORMATION: Ordering Provider Reason For Exam: r/o effusion, pneumonia Technologist Note: Additional: COMPARISON: Chest x-ray from 10/07/2024. FINDINGS/IMPRESSION: There is no focal consolidation, pleural effusion, or pneumothorax.The cardiomediastinal silhouette is normal. No displaced fractures identified. Hardware projecting over thoracic spine. > Dictated by Otis Bocanegra MD (founder president and ceo). > Dictated by Clinical Microbiologist I, Blake Plasencia MD have personally reviewed and interpreted this examination/study. > Interpreting Provider: Blake Plasencia MD on 10/10/2024 1:17 AM Procedure Note Blake Plasencia MD - 10/10/2024 PROCEDURE: XR CHEST 1VW PORTABLE, DATE/TIME OF EXAM: 10/09/2024 7:27PM, LOCATION [facility] INDICATION: R06.02: Short of breath on exertion ADDITIONAL CLINICAL INFORMATION: Ordering Provider Reason For Exam: r/o effusion, pneumonia Technologist Note: Additional: COMPARISON: Chest x-ray from 10/07/2024. FINDINGS/IMPRESSION: There is no focal consolidation, pleural effusion, or pneumothorax.The cardiomediastinal silhouette is normal. No displaced fracturesidentified. Hardware projecting over thoracic spine. > Dictated by Otis Bocanegra MD (founder president and ceo). > Dictated by Clinical Microbiologist Reese, Blake Plasencia MD have personally reviewed and interpreted this examination/study. > Interpreting Provider: Blake Plasencia MD on 10/10/2024 1:17 AM Anjali Avelar OIL FIELD OPERATOR-BUZZLE BUFFER DIAGNOSTIC IMAGING O RDERABLES Final Result * (ABNORMAL) BLOOD GASES ABBEY + COOX PANEL (10/09/2024 4:39 PM CDT) Only the most recent of2 resultswithin the time period is included. pH Venous 7.41 7.32 - 7.42 pH 10/09/2024 5:04 PM [facility] pO2 Venous 34(L) 35 - 40 mmHg 10/09/2024 5:04 PM [facility] pCO2 Venous 44 40 - 50 mmHg 10/09/2024 5:04 PM [facility] HCO3 Venous 27.9 20 - 30 mmol/L 10/09/2024 5:04 PM [facility] Base Excess Venous 2.9(H) -2.0 - 2.0 mmol/L 10/09/2024 5:04 PM [facility] Oxyhemoglobin Venous 56.8 % 09/18 5:04 PM [facility] Comment:A^Absorbance Error Deoxyhemoglobin (HHB) Venous % 42.6 % 10/09/2024 5:04 PM [facility] Comment:A^Absorbance Error Methemoglobin <0.8 0.0 - 2.0 % 10/09/2024 5:04 PM [facility] Comment:A^Absorbance Error Carboxyhemoglobin 0.6 0.0 - 2.0 % 2024 5:04 PM [facility] Comment:A^Absorbance Error O2 Content Venous 7.7 Interpret within clinical context ml/dL 10/09/2024 5:04 PM [facility] Hemoglobin by COOX 9.6(L) 12.0 - 17.6 g/dL 10/09/2024 5:04 PM [facility] Comment:A^Absorbance Error O2 Saturation Venous 57(L) >=70 % 09/18 5:04 PM [facility] Comment:A^Absorbance Error FI O2 Mixed Venous 21.0 % 2024 5:04 PM [facility] Blood BLOOD SPECIMEN / Unknown Venipuncture / Unknown 10/09/2024 4:39 PM CDT 10/09/2024 4:56 PM CDT Narrative [facility] - 10/09/2024 5:04 PM CDT Carboxyhemoglobin Normal Concentration: Non-smokers: 0-2%; Smokers: 0-9%; Toxic: >20% us Anjali Avelar OIL FIELD OPERATOR-BUZZLE BUFFER LAB - BLOOD GASES OR DERABLES Final Result [facility] [address] [place] [phone], [facility] [phone] * PHOSPHORUS BLOOD (10/09/2024 4:39 PM CDT) Only the most recent of8 resultswithin the time period is included. [facility] Phosphorus 4.9 2.8 - 5.1 mg/dL 10/09/2024 5:29 PM CDT [facility] Blood BLOOD SPECIMEN / Unknown Venipuncture / Unknown 10/09/2024 4:39 PM CDT 10/09/2024 4:58 PM CDT us Anjali Avelar OIL FIELD OPERATOR-BUZZLE BUFFER LAB - CHEMISTRY ORDE RABLES Final Result Performing Organization Address City/[facility]/ZIP Co de Phone Number [address] [address], [place] [phone] * (ABNORMAL) GLUCOSE - POINT OF CARE (10/09/2024 4:26 PM CDT) Only the most recent of55 resultswithin the time period is included. Glucose WB/POC 115(H) 70 - 99 mg/dL 10/09/2024 4:30 PM CDT [facility] Specimen Type Arterial/C apillary 10/09/2024 4:30 PM CDT [facility] Blood BLOOD SPECIMEN / Unknown 10/09/2024 4:26 PM CDT 10/09/2024 4:30 PM CDT us Provider Unknown LAB - POINT OF CARE ORDERABLES Final Result Performing Organization Address City/[facility]/ZIP Co de Phone Number [address] [address], [place] [phone] * (ABNORMAL) URINALYSIS REFLEX MICROSCOPIC REFLEX CULTURE (10/07/2024 6:16 PM CDT) Color UA Yellow Yellow, Straw 10/07/2024 6:39 PM CDT [facility] Clarity UA Ex. Turbid(A) Clear 10/07/2024 6:39 PM CDT [facility] Glucose UA Normal Normal 10/07/2024 6:39 PM CDT [facility] Bilirubin UA Negative Negative 10/07/2024 6:39 PM CDT [facility] Ketone UA Negative Negative 10/07/2024 6:39 PM CDT [facility] Specific Elizabeth UA 1.015 1.005 - 1.030 10/07/2024 6:39 PM [facility] Blood UA 3+(A) Negative 10/07/2024 6:39 PM [facility] pH UA 6.0 5.0 - 8.0 10/07/2024 6:39 PM [facility] Protein UA 2+(A) Negative 10/07/2024 6:39 PM [facility] Urobilinogen UA Normal Normal mg/dL 10/07/2024 6:39 PM [facility] Nitrite UA Negative Negative 10/07/2024 6:39 PM [facility] Leukocyte Esterase UA 500 MOLLY/uL(A) Negative 10/07/2024 6:39 PM [facility] RBC UA 51-100(A) 0 - 5 # /hpf 10/07/2024 6:39 PM [facility] WBC UA >100(A) 0 - 5 # /hpf 10/07/2024 6:39 PM [facility] Bacteria UA 2+(A) None Seen 10/07/2024 6:39 PM [facility] Squamous Epithelial Cells None Seen 0 - 5 /hpf 10/07/2024 6:39 PM [facility] Transitional Epithelial Cell UA 0-2(A) None Seen /HPF 10/07/2024 6:39 PM [facility] Budding Yeast Moderate(A) None seen /hpf 10/07/2024 6:39 PM [facility] Reflex Status Culture to follow 10/07/2024 6:39 PM [facility] Urine URINE SPECIMEN OBTAINED VIA [employer] URINARY CATHETER / Unknown Collection / Unknown 10/07/2024 6:16 PM CDT 10/07/2024 6:19 PM CDT [facility] - 10/07/2024 6:39 PM CDT Richard Sylvester MD LAB - URINALYSIS ORDERABLES Kenna haider Result [facility] [address] [place] [address], [facility] [phone] * (ABNORMAL) CULTURE URINE (10/07/2024 6:16 PM CDT) Pathologist [facility] Culture Urine 50,000-100,000 CFU/mL Klebsiella pneumoniae(A) MUSHTAQ 10/09/2024 5:54 AM CDT [facility] Urine URINE SPECIMEN OBTAINED VIA [employer] URINARY CATHETER / Unknown Collection / Unknown 10/07/2024 6:16 PM CDT 10/07/2024 6:19 PM CDT Narrative [facility] - 10/09/2024 5:54 AM CDT [...] LAB - MICROBIOLOGY ORDERABLES Fi nal Result [facility] [address] [place] [address], [facility] [phone] * VAS Arterial Multilevel Le (10/05/2024 12:24 PM CDT) Anatomical Region Laterality Modality Intravascular Ul trasound 10/05/2024 11:3 4 AM CDT Narrative Procedure Note Elroy Holcomb MD - 10/05/2024 us Guy Messina MD VASCULAR LAB ORDERABLES Edit ed Result - Final * (ABNORMAL) HEMOGLOBIN A1C (09/25/2024 5:06 AM CDT) Hemoglobin A1c 5.8(H) <=5.6 % 09/25/2024 8:19 AM CDT [facility] Estimated Average Glucose 120 mg/dL 09/25/2024 8:19 AM CDT [facility] Comment: HbA1c Interpretation: Normal : < 5.7% Pre-diabetes: 5.7-6.4% Diabetes: Equal to or greater than 6.5% Test results diagnostic of diabetes should be repeated for confirmation. Treatment target values recommended by ADA and other clinical organizations should be used to evaluate metabolic control in patients. Reference: [place] [employer] Association, Standards of Care in Diabetes [...] LAB - CHEMISTRY ORDERABLES F inal Result [facility] [address] [place] [address], [facility] [phone] * (ABNORMAL) RENAL FUNCTION PANEL (09/24/2024 7:53 PM CDT) Only the most recent of3 resultswithin the time period is included. BUN 42(H) 7 - 26 mg/dL 09/24/2024 8:47 PM [facility] Creatinine 12.22(H) 0.71 - 1.16 mg/dL 09/24/2024 8:47 PM [facility] Sodium 136 136 - 145 mmol/L 09/24/2024 8:47 PM [facility] Potassium 3.9 3.5 - 4.5 mmol/L 09/24/2024 8:47 PM [facility] Chloride 97(L) 98 - 107 mmol/L 09/24/2024 8:47 PM [facility] CO2 24 22 - 29 mmol/L 09/24/2024 8:47 PM [facility] Glucose 93 70 - 99 mg/dL 09/24/2024 8:47 PM [facility] Albumin 1.8(L) 3.4 - 5.0 g/dL 09/24/2024 8:47 PM [facility] Calcium 8.4 8.4 - 10.2 mg/dL 09/24/2024 8:47 PM [facility] Phosphorus 7.0(H) 2.8 - 5.1 mg/dL 09/24/2024 8:47 PM [facility] Anion Gap 15 6 - 16 09/24/2024 8:47 PM [facility] BUN/Creatinine Ratio 3(L) 7 - 23 09/24/2024 8:47 PM [facility] Osmolality Calculated 292 275 - 295 mOsm/kg 09/24/2024 8:47 PM [facility] eGFR by CKD-EPI 4(L) >=90 mL/min/1.7 3 m2 09/24/2024 8:47 PM [facility] Comment:Estimated Glomerular Filtration Rate (eGFR) calculated using the CKD-EPI Creatinine Equation (2020), per the National Kidney Foundation and [place] Society of Nephrology recommendations. Blood BLOOD SPECIMEN / Unknown Lab Venipuncture / Unknown 09/24/2024 7:53 PM CDT 09/24/2024 8:15 PM T Guy Messina MD LAB - CHEMISTRY ORDERABLES F inal Result Performing Organization Address City/[facility]/ZIP Co de Phone Number [address] [address], [facility] [phone] * TSH REFLEX FREE T4 (09/24/2024 12:02 PM CDT) TSH 1.567 0.350 - 4.940 uIU/mL 09/24/2024 12:57 PM CDT [facility] Blood BLOOD SPECIMEN / Unknown 09/24/2024 12:02 PM CDT 09/24/2024 12:18 PM CDT Alexis Rodrigez III, MD LAB - CHEMISTRY ORDERAB LES Final Result Performing Organization Address [facility]/ZIP Co de Phone Number [address] [address], [facility] [phone] * (ABNORMAL) VITAMIN B1 (09/24/2024 12:02 PM CDT) Pathologist [facility] Vitamin B1 Whole Blood 205(H) 70 - 180 nmol/L 09/27/2024 7:16 PM CDT [facility] ([facility]) Comment: INTERPRETIVE INFORMATION: Vitamin B1, Whole Blood This assay measures the concentration of thiamine diphosphate (TDP), the primary active form of vitamin B1. Approximately 90 percent of vitamin B1 present in whole blood is TDP. Thiamine and thiamine monophosphate, which comprise the remaining 10 percent, are not measured. This test was developed and its performance characteristics determined by [employer]. It has not been cleared or approved by the [place] Food and Drug Administration. This test was performed in a CLIA certified laboratory and is intended for clinical purposes. Performed By: [employer] [address] [place] [id number] [employer]ce[employer] Supervisor: Mk Egan MD, PhD CLIA Number: [id number] Blood BLOOD SPECIMEN / Unknown 09/24/2024 12:02 PM CDT 09/24/2024 12:11 PM CDT Alexis Rodrigez III, MD LAB - CHEMISTRY ORDERAB LES Final Result Performing Organization Address City/[facility]/ZIP Co de Phone Number [facility] ([facility]) [address] [place] [address], [facility] * (ABNORMAL) VITAMIN B12 (09/24/2024 12:02 PM CDT) Vitamin B12 1,151(H) 213 - 816 pg/mL 09/24/2024 12:57 PM CDT [facility] Blood BLOOD SPECIMEN / Unknown 09/24/2024 12:02 PM CDT 09/24/2024 12:18 PM CDT us Alexis Rodrigez III, MD LAB - CHEMISTRY ORDERAB LES Final Result Performing Organization Address [facility]/ZIP Co de Phone Number [address] [address], [place] [phone] * (ABNORMAL) TROPONIN-I HIGH SENSITIVE (09/24/2024 5:08 AM CDT) Pathologist [facility] Troponin I High Sensitive 83(H) <=35 ng/L 09/24/2024 6:10 AM CDT [facility] Blood BLOOD SPECIMEN / Unknown Lab Venipuncture / Unknown 09/24/2024 5:08 AM CDT 09/24/2024 5:28 AM CDT us Jennifer Winn MD LAB - CHEMISTRY ORDERABLES F inal Result Performing Organization Address [facility] Co de Phone Number [address] [address], [place] [phone] * CT Lumbar Spine Wo Contrast (09/23/2024 [...] pelvis. Report dictated by Branden Jha MD (founder president and ceo) 09/23/2024 5:45 PM. > Dictated by Clinical Microbiologist I, Jana Clark MD have personally reviewed and interpreted this examination/study. > Interpreting Provider: Jana Clark MD on 09/23/2024 6:29 PM Narrative 09/23/2024 6:29 PM CDT PROCEDURE: CT HEAD WO CONTRAST, CT LUMBAR SPINE WO CONTRAST, CT THORACIC SPINE WO CONTRAST, CT CERVICAL SPINE WO CONTRAST, DATE/TIME OF EXAM: 09/23/2024 5:32 PM, LOCATION [facility] INDICATION: W19.XXXA: Fall, initial encounter R41.82: Altered mental status, unspecified altered mental status type ADDITIONAL CLINICAL INFORMATION: Ordering Provider Reason For Exam: r/o bleed, fx (accession [id number]), r/o fx (accession [id number]), r/o fx (accession [id number]), r/o fx (accession [id number]) Technologist Note: None. Additional: 69 year old [...] DATE/TIME OF EXAM: 09/23/2024 5:32 PM, LOCATION [facility] INDICATION: W19.XXXA: Fall, initial encounter R41.82: Altered mental status, unspecified altered mental status type ADDITIONAL CLINICAL INFORMATION: Ordering Provider Reason For Exam: r/o bleed, fx (accession [id number]), r/o fx (accession [id number]), r/o fx (accession [id number]), r/o fx (accession [id number]) Technologist Note: None. Additional: 69 year old [...] pelvis. Report dictated by Branden Jha MD (founder president and ceo) 09/23/2024 5:45 PM. > Dictated by Clinical Microbiologist I, Jana Clark MD have personally reviewed [...] pelvis. Report dictated by Branden Jha MD (founder president and ceo) 09/23/2024 5:45 PM. > Dictated by Clinical Microbiologist Reese, Jana Clark MD have personally reviewed and interpreted this examination/study. > Interpreting Provider: Jana Clark MD on 09/23/2024 6:29 PM Narrative 09/23/2024 6:29 PM CDT PROCEDURE: CT HEAD WO CONTRAST, CT LUMBAR SPINE WO CONTRAST, CT THORACIC SPINE WO CONTRAST, CT CERVICAL SPINE WO CONTRAST, DATE/TIME OF EXAM: 09/23/2024 5:32 PM, LOCATION [facility] INDICATION: W19.XXXA: Fall, initial encounter R41.82: Altered mental status, unspecified altered mental status type ADDITIONAL CLINICAL INFORMATION: Ordering Provider Reason For Exam: r/o bleed, fx (accession [id number]), r/o fx (accession [id number]), r/o fx (accession [id number]), r/o fx (accession [id number]) Technologist Note: None. Additional: 69 year old [...] DATE/TIME OF EXAM: 09/23/2024 5:32 PM, LOCATION [facility] INDICATION: W19.XXXA: Fall, initial encounter R41.82: Altered mental status, unspecified altered mental status type ADDITIONAL CLINICAL INFORMATION: Ordering Provider Reason For Exam: r/o bleed, fx (accession [id number]), r/o fx (accession [id number]), r/o fx (accession [id number]), r/o fx (accession [id number]) Technologist Note: None. Additional: 69 year old [...] pelvis. Report dictated by Branden Jha MD (founder president and ceo) 09/23/2024 5:45 PM. > Dictated by Clinical Microbiologist I, Jana Clark MD have personally reviewed [...] pelvis. Report dictated by Branden Jha MD (founder president and ceo) 09/23/2024 5:45 PM. > Dictated by Clinical Microbiologist I, Jana Clark MD have personally reviewed and interpreted this examination/study. > Interpreting Provider: Jana Clark MD on 09/23/2024 6:29 PM Narrative 09/23/2024 6:29 PM CDT PROCEDURE: CT HEAD WO CONTRAST, CT LUMBAR SPINE WO CONTRAST, CT THORACIC SPINE WO CONTRAST, CT CERVICAL SPINE WO CONTRAST, DATE/TIME OF EXAM: 09/23/2024 5:32 PM, LOCATION [facility] INDICATION: W19.XXXA: Fall, initial encounter R41.82: Altered mental status, unspecified altered mental status type ADDITIONAL CLINICAL INFORMATION: Ordering Provider Reason For Exam: r/o bleed, fx (accession [id number]), r/o fx (accession [id number]), r/o fx (accession [id number]), r/o fx (accession [id number]) Technologist Note: None. Additional: 69 year old [...] DATE/TIME OF EXAM: 09/23/2024 5:32 PM, LOCATION [facility] INDICATION: W19.XXXA: Fall, initial encounter R41.82: Altered mental status, unspecified altered mental status type ADDITIONAL CLINICAL INFORMATION: Ordering Provider Reason For Exam: r/o bleed, fx (accession [id number]), r/o fx (accession [id number]), r/o fx (accession [id number]), r/o fx (accession [id number]) Technologist Note: None. Additional: 69 year old [...] pelvis. Report dictated by Branden Jha MD (founder president and ceo) 09/23/2024 5:45 PM. > Dictated by Clinical Microbiologist I, Jana Clark MD have personally reviewed [...] erosion. Report dictated by Branden Jha MD, (founder president and ceo). > Dictated by Clinical Microbiologist I, Nicole Bernabe MD have personally reviewed and interpreted this examination/study. > Interpreting Provider: Nicole Bernabe MD on 09/24/2024 9:17 AM Narrative 09/24/2024 9:17 AM CDT PROCEDURE: XR FOOT LEFT 3VW OR MORE, DATE/TIME OF EXAM: 09/23/2024 5:34 PM, LOCATION [facility] INDICATION: W19.XXXA: Fall, initial encounter ADDITIONAL CLINICAL [...] MORE, DATE/TIME OF EXAM: 09/23/2024 5:34PM, LOCATION [facility] INDICATION: W19.XXXA: Fall, initial encounter ADDITIONAL CLINICAL [...] erosion. Report dictated by Branden Jha MD, (founder president and ceo). > Dictated by Clinical Microbiologist I, Nicole Bernabe MD have personally reviewed and interpreted this examination/study. > Interpreting Provider: Nicole Bernabe MD on 09/24/2024 9:17 AM us Moon Lewis PA-C DIAGNOSTIC IMAGING ORDERABLES F inal Result * (ABNORMAL) C-REACTIVE PROTEIN (09/23/2024 4:52 PM CDT) Only the most recent of2 resultswithin the time period is included. C-Reactive Protein 1.6(H) <=0.5 mg/dL 09/23/2024 5:42 PM CDT [facility] Blood BLOOD SPECIMEN / Unknown Venipuncture / Unknown 09/23/2024 4:52 PM CDT 09/23/2024 4:56 PM CDT us Moon Lewis PA-C LAB - CHEMISTRY ORDERABLES Kenna l Result Performing Organization Address [facility]/ZIP Co de Phone Number [address] [address], [place] [phone] * (ABNORMAL) ERYTHROCYTE SEDIMENTATION RATE (09/23/2024 4:52 PM CDT) Only the most recent of2 resultswithin the time period is included. Erythrocyte Sedimentation Rate Westergren 116(H) 0 - 20 MM/HR 09/23/2024 5:21 PM CDT [facility] Blood BLOOD SPECIMEN / Unknown Venipuncture / Unknown 09/23/2024 4:52 PM CDT 09/23/2024 5:05 PM CDT Moon Lewis PA-C LAB - HEMATOLOGY ORDERABLES Fin al Result Performing Organization Address [facility] Co de Phone Number [address] [address], [place] [phone] * (ABNORMAL) DIFFERENTIAL MANUAL (09/23/2024 4:52 PM CDT) Only the most recent of3 resultswithin the time period is included. Neutrophil % 78(H) 41 - 74 % 09/23/2024 5:33 PM CDT [facility] Lymphocyte % 10(L) 17 - 47 % 09/23/2024 5:33 PM CDT [facility] Monocyte % 10 3 - 11 % 09/23/2024 5:33 PM CDT [facility] Eosinophil % 1 0 - 7 % 09/23/2024 5:33 PM CDT [facility] Metamyelocyte % 1(H) 0% % 5:33 PM CDT [facility] Neutrophil Absolute 8.66(H) 1.60 - 7.50 x10E9/L 09/23/2024 5:33 PM CDT [facility] Lymphocyte Absolute 1.11 1.00 - 4.40 x10E9/L 09/23/2024 5:33 PM CDT [facility] Monocyte Absolute 1.11(H) 0.15 - 1.00 x10E9/L 09/23/2024 5:33 PM [facility] Eosinophil Absolute 0.11 0.00 - 0.60 x10E9/L 09/23/2024 5:33 PM [facility] RBC Morphology REVIEWED 09/23/2024 5:33 PM [facility] Microcytosis MODERATE(A) (none) 09/23/2024 5:33 PM [facility] Blood BLOOD SPECIMEN / Unknown Venipuncture / Unknown 09/23/2024 4:52 PM CDT 09/23/2024 5:05 PM CDT us Moon Lewis PA-C LAB - HEMATOLOGY ORDERABLES Fin al Result [facility] [address] [place] [address], [facility] [phone] * (ABNORMAL) CBC W/O DIFFERENTIAL (09/16/2024 1:01 AM CDT) Only the most recent of10 resultswithin the time period is included. WBC 9.3 4.0 - 10.7 x10E9/L 09/16/2024 1:43 AM [facility] RBC Count 3.37(L) 4.30 - 5.80 x10E12/L 09/16/2024 1:43 AM [facility] Hemoglobin 9.5(L) 13.3 - 17.5 g/dL 09/16/2024 1:43 AM [facility] Hematocrit 28.3(L) 38.7 - 51.1 % 09/16/2024 1:43 AM [facility] MCV 84.0 80.0 - 98.0 fL 09/16/2024 1:43 AM [facility] MCH 28.2 26.7 - 33.6 pg 09/16/2024 1:43 AM [facility] MCHC 33.6 31.7 - 36.3 g/dL 09/16/2024 1:43 AM [facility] RDW-CV 15.7(H) 11.3 - 14.8 % 09/16/2024 1:43 AM [facility] Platelet Count 205 150 - 420 x10E9/L 09/16/2024 1:43 AM CDT [facility] MPV 10.3 7.8 - 11.4 fL 09/16/2024 1:43 AM CDT [facility] Blood BLOOD SPECIMEN / Unknown Lab Venipuncture / Unknown 09/16/2024 1:01 AM CDT 09/16/2024 1:40 AM CDT us Alexis Rodrigez III, MD LAB - HEMATOLOGY ORDERA BLES Final Result Performing Organization Address City/[facility]/ZIP Co de Phone Number [address] [address], [place] [phone] * VANCOMYCIN LEVEL RANDOM (09/15/2024 4:10 PM CDT) Only the most recent of3 resultswithin the time period is included. Vancomycin Random 31.2 Therapeutic Ranges not established for random specimens ug/mL 09/15/2024 6:00 PM CDT [facility] Blood BLOOD SPECIMEN / Unknown Lab Venipuncture / Unknown 09/15/2024 4:10 PM CDT 09/15/2024 4:51 PM CDT Narrative [facility] - 09/15/2024 6:00 PM CDT See institution protocol. us Aureliano Pierce MD LAB - CHEMISTRY ORDERAB LES Final Result Performing Organization Address City/[facility]/ZIP Co de Phone Number [address] [address], [place] [phone] * LACTIC ACID BLOOD (09/14/2024 3:32 PM CDT) Only the most recent of4 resultswithin the time period is included. Lactic Acid-Stat 2.0 <=2.0 mmol/L 09/14/2024 4:17 PM CDT [facility] Blood BLOOD SPECIMEN / Unknown Lab Venipuncture / Unknown 09/14/2024 3:32 PM CDT 09/14/2024 3:51 PM CDT us Alexis Rodrigez III, MD LAB - CHEMISTRY ORDERAB LES Final Result Performing Organization Address [facility] Co de Phone Number [address] [address], [facility] [phone] * (ABNORMAL) HGB HCT PANEL (09/14/2024 1:24 PM CDT) Only the most recent of2 resultswithin the time period is included. Hemoglobin 8.7(L) 13.3 - 17.5 g/dL 09/14/2024 1:41 PM CDT [facility] Hematocrit 25.6(L) 38.7 - 51.1 % 09/14/2024 1:41 PM CDT [facility] Blood BLOOD SPECIMEN / Unknown Venipuncture / Unknown 09/14/2024 1:24 PM CDT 09/14/2024 1:30 PM CDT us Alexis Rodrigez III, MD LAB - HEMATOLOGY ORDERA BLES Final Result Performing Organization Address [facility] Co de Phone Number [address] [address], [facility] [phone] * PATHOLOGY TISSUE (09/14/2024 11:45 AM CDT) Case Report Surgical Pathology Report Case: [id number] Authorizing Provider: Elroy Holcomb MD Collected: 09/14/2024 11:45 AM Ordering Location: [facility] RITO OP Received: 09/14/2024 12:47 PM Pathologist: Charmaine Myrick MD Specimen: Toe, Left, Left Great Toe 09/16/2024 11:40 AM CDT [facility] Final Diagnosis Toe, left great, amputation (A): - Skin ulceration and necrosis - Acute osteomyelitis - Bone margin negative for acute inflammation - Skin and soft tissue margin appears viable 09/16/2024 11:40 AM CDT [facility] at 1140 CDT Microscopic Description and Comment Microscopic examination substantiates the diagnosis. 09/16/2024 11:40 AM [facility] Clinical History The patient is a 69-year-old man with first toe dry gangrene and history of PAD. 09/16/2024 11:40 AM [facility] Gross Description The [...] hemorrhage. There are no additional gross lesions. [employer] sections are submitted as follows: A1-skin and soft tissue to resection margin, medial and dorsal surfaces A2-bony resection margin, decalcified A3-partial proximal cross-section with surrounding mummification, decalcified IKD 09/16/2024 11:40 AM [facility] Pathologist Location at [facility] 09/16/2024 11:40 AM [facility] Disclaimer The performance characteristics of all immunohistochemical and indirect immunofluorescence stains (if any) cited in this report were determined by the Histopathology Laboratory of [facility]. Some of these tests were developed [...] the attending (teaching) pathologist. 09/16/2024 11:40 AM [facility] Embedded Images 09/16/2024 11:40 AM [facility] Amputation, Traumatic (Gross Only) (Toe, Left) 09/14/2024 11:45 AM CDT 09/14/2024 12:47 PM CDT Comment:Pre-op diagnosis: Toe gangrene (HCC) [I96] Elroy Holcomb MD LAB - PATHOLOGY/CYTOLOGY O RDERABLES Final Result [facility] Janneth[address] Holley [facility] [place] [address], [facility] [phone] * Peripheral Nerve Block (09/14/2024 10:38 AM [...] fungus isolated MUSHTAQ 10/11/2024 8:[address] [facility] Fungus Stain No yeast or hyphae seen 10/11/2024 8:[address] [facility] Microbiology PERITONEAL DIALYSATE SPECIMEN / Unknown Collection / Unknown 09/13/2024 8:08 PM CDT 09/13/2024 8:10 PM CDT Alexis Rodrigez III, MD LAB - MICROBIOLOGY ORDE AZUCENA Final Result [facility] [address] [place] [address], [facility] [phone] * DIFFERENTIAL MANUAL FLUID (09/13/2024 8:08 PM CDT) Fluid Source Peritoneal 09/13/2024 9:03 PM CDT [facility] Body Fluid Total Cell Count 100 x10E6/L 09/13/2024 9:03 PM CDT [facility] Neutrophils Fluid Percent 11 % 09/13/2024 9:03 PM CDT [facility] Lymphocytes Fluid Percent 6 % 09/13/2024 9:03 PM CDT [facility] Macrophages Fluid Percent 79 % 09/13/2024 9:03 PM CDT [facility] Mesothelial Cells Fluid Percent 4 % 09/13/2024 9:03 PM CDT [facility] Fluid PERITONEAL FLUID / Unknown Collection / Unknown 09/13/2024 8:08 PM CDT 09/13/2024 8:10 PM CDT Narrative [facility] - 09/13/2024 9:03 PM CDT No reference ranges established for body fluid differential cell counts. The test results must be integrated into the clinical context for interpretation. Alexis Rodrigez III, MD LAB - BODY FLUID ORDERA BLES Final Result [facility] [address] [place] [address], [facility] [phone] * CULTURE FLUID+GRAM STAIN (09/13/2024 8:08 PM CDT) Culture No growth MUSHTAQ 09/17/2024 12:[address] [facility] Gram Stain Light Polymorphonuclear cells 09/17/2024 12:[address] [facility] Gram Stain No organisms seen 025 12:[address] [facility] MICRO[facility] Other PERITONEAL DIALYSATE SPECIMEN / Unknown Collection / Unknown 09/13/2024 8:08 PM CDT 09/13/2024 8:10 PM CDT Alexis Rodrigez III, MD LAB - MICROBIOLOGY PK ZENG Final Result Performing Organization Address City/[facility]/ZIP Co de Phone Number [facility] MICROBIOLOG[facility] [address] [place] [address], [facility] [phone] * CULTURE ANAEROBE (09/13/2024 8:08 PM CDT) Culture No anaerobic organisms isolated MUSHTAQ 09/19/2024 8:[address] [facility] MICROBIOLOG[facility] Microbiology PERITONEAL DIALYSATE SPECIMEN / Unknown Collection / Unknown 09/13/2024 8:08 PM CDT 09/13/2024 8:11 PM CDT Alexis Rodrigez III, MD LAB - MICROBIOLOGY ORDLien ZENG Final Result [facility] MICRO[facility] [address] [place] [address], [facility] [phone] * CELL COUNT W DIFFERENTIAL FLUID (09/13/2024 8:08 PM CDT) Fluid Source Peritoneal 09/13/2024 9:03 PM CDT [facility] Fluid Appearance CLEAR 09/13/2024 9:03 PM CDT [facility] Fluid Color YELLOW 09/13/2024 9:03 PM CDT [facility] Total Nucleated Cells Fluid 279 Reference Range Not Established x10E6/L 09/13/2024 9:03 PM CDT [facility] RBC Count Fluid <2,000 Reference Range Not Established x10E6/L 09/13/2024 9:03 PM CDT [facility] Fluid PERITONEAL FLUID / Unknown Collection / Unknown 09/13/2024 8:08 PM CDT 09/13/2024 8:10 PM CDT Narrative [facility] - 09/13/2024 9:03 PM CDT No reference ranges established for body fluid cell counts. Any reference ranges provided are derived from published literature. The test results must be integrated into the clinical context for interpretation. us Alexis Rodrigez III, MD LAB - BODY FLUID ORDERA BLES Final Result [address] [address], [facility] [phone] * VAS Bilateral Venous Duplex Le (09/13/2024 4:34 PM CDT) Anatomical Region Laterality Modality Lower Extremity Ultrasound 09/13/2024 4:18 PM CDT Narrative Procedure Note Lalit Castanon MD - 09/13/2024 us Alexis Rodrigez III, MD VASCULAR LAB ORDERABLES Edited Result - Final * SARS-COV-2 (COVID-19) RAPID (09/13/2024 6:02 AM CDT) COVID-19 PCR Not detected Not detected 09/14/19 25 6:36 AM CDT [facility] Microbiology SPECIMEN FROM NASOPHARYNGEAL STRUCTURE / Unknown Collection / Unknown 09/13/2024 6:02 AM CDT 09/13/2024 6:04 AM CDT Narrative [facility] - 09/13/2024 6:36 AM CDT The [employer] Xpert Xpress SARS-COV-2 has been authorized by [...] LAB - MICROBIOLOGY ORDERABLE S Final Result [address] [address], [facility] [phone] * TRANSFUSE RED BLOOD CELL LEUKOREDUCED UNIT(S) [...] > Dictated by Sera Chowdhury Dr, MD (founder president and ceo). Terry Leigh MD have personally reviewed and interpreted this examination/study. > Interpreting Provider: Terry Ramos MD on 09/13/2024 9:42 AM Narrative 09/13/2024 9:42 AM CDT PROCEDURE: CT ANGIO AORTA FOR DISSECTION, DATE/TIME OF EXAM: 09/13/2024 12:28 AM, LOCATION [facility] INDICATION: R10.9: Abdominal pain, unspecified abdominal location [...] DATE/TIME OF EXAM: 09/13/2024 12:28 AM, LOCATION [facility] INDICATION: R10.9: Abdominal pain, unspecified abdominal location [...] > Dictated by Sera Chowdhury Dr, MD (founder president and ceo). I, Lien. Constantino Ramos MD have personally reviewed and interpreted this examination/study. > Interpreting Provider: Terry Ramos MD on 09/13/2024 9:42 AM Yuriy Lopez MD CT ORDERABLES Final Result * PREPARE (CROSSMATCH) RBC UNIT(S), 1 Units (09/12/2024 11:30 PM CDT) Unit Description AS1 LR PRBC [facility] LAB Unit ABO O [facility] Unit Rh NEG [facility] Product Number R43 [facility] B LOOD BANK LAB Unit Donor # [id number] [facility] BLOOD [facility] LAB Unit Status transfused [facility] BLO OD [facility]ANK LAB Product Code [id number] [facility] BLO OD BANK LAB Blood Type Barcode 9500 [facility] B[facility]OD [facility] LAB Expiration Date S BLOOD BANK LAB Blood Bank BLOOD SPECIMEN / Unknown 09/12/2024 11:30 PM CDT 09/12/2024 11:37 PM CDT Yuriy Lopez MD LAB - BLOOD BANK ORDERABLES Final Result [facility]OD [facility] LAB [address] [place] [address], [facility] [phone] * TYPE + SCREEN PANEL (09/12/2024 11:30 PM CDT) Antibody Screen NEG 12:16 AM CDT [facility] BLOOD B[facility] LAB ABO Rh O NEG 09/13/2024 12:16 AM CDT [facility] B[facility]OD [facility] LAB Blood Bank BLOOD SPECIMEN / Unknown Venipuncture / Unknown 09/12/2024 11:30 PM CDT 09/12/2024 11:37 PM CDT Yuriy Lopez MD LAB - BLOOD BANK ORDERABLES Final Result [facility] BLOOD [facility] LAB [address] [place] [address], [facility] [phone] * CULTURE BLOOD (09/12/2024 10:00 PM CDT) Only the most recent of4 resultswithin the time period is included. Culture No growth day 5 MUSHTAQ 09/18/2024 1:[address] [facility] MI[facility] Blood PERIPHERAL BLOOD / Unknown Venipuncture / Unknown 09/12/2024 10:00 PM CDT 09/12/2024 10:21 PM CDT Yuriy Lopez MD LAB - MICROBIOLOGY ORDERABLE S Final Result Performing Organization Address City/[facility]/ZIP Co de Phone Number [facility] [address] [place] [address], [facility] [phone] * (ABNORMAL) BASIC METABOLIC PANEL (CALCIUM TOTAL) (09/08/2024 10:45 AM CDT) Only the most recent of6 resultswithin the time period is included. BUN 46(H) 7 - 26 mg/dL 09/08/2024 11:55 AM [facility] Creatinine 10.97(H) 0.71 - 1.16 mg/dL 09/08/2024 11:55 AM [facility] Sodium 142 136 - 145 mmol/L 09/08/2024 11:55 AM [facility] Potassium 4.4 3.5 - 4.5 mmol/L 09/08/2024 11:55 AM [facility] Chloride 104 98 - 107 mmol/L 09/08/2024 11:55 AM [facility] CO2 25 22 - 29 mmol/L 09/08/2024 11:55 AM [facility] Glucose 112(H) 70 - 99 mg/dL 09/08/2024 11:55 AM [facility] Calcium 8.9 8.4 - 10.2 mg/dL 09/08/2024 11:55 AM [facility] Anion Gap 13 6 - 16 09/08/2024 11:55 AM CDT [facility] BUN/Creatinine Ratio 4(L) 7 - 23 09/08/2024 11:55 AM CDT [facility] Osmolality Calculated 307(H) 275 - 295 mOsm/kg 09/08/2024 11:55 AM CDT [facility] eGFR by CKD-EPI 5(L) >=90 mL/min/1.7 3 m2 09/08/2024 11:55 AM CDT [facility] Comment:Estimated Glomerular Filtration Rate (eGFR) calculated using the CKD-EPI Creatinine Equation (2020), per the National Kidney Foundation and [place] [employer]ph[employer] recommendations. Blood BLOOD SPECIMEN / Unknown Lab Venipuncture / Unknown 09/08/2024 10:45 AM CDT 09/08/2024 11:26 AM CDT us Mellissa Freitas PA-C LAB - CHEMISTRY ORDERABLES Final Result [facility] [address] [place] [address], [facility] [phone] * VAS Bilateral Venous Mapping (09/07/2024 2:24 [...] thickening. Report dictated by Freddie Durham MD, (Clinical Microbiologist). I, Junior Hurley MD have personally reviewed [...] thickening. Report dictated by Freddie Durham MD, (Clinical Microbiologist). IJunior MD have personally reviewed and interpreted this examination/study. > Interpreting Provider: Junior Hurley MD on 56:26 AM us Charmaine Khalil MD CT ORDERABLES Final Result * (ABNORMAL) POTASSIUM WHOLE BLD (09/01/2024 3:54 PM CDT) Potassium Whole Blood 3.1(L) 3.5 - 5.5 mmol/L 09/01/2024 4:05 PM CDT [facility] Blood WHOLE BLOOD SPECIMEN / Unknown Venipuncture / Unknown 09/01/2024 3:54 PM CDT 09/01/2024 3:57 PM CDT us Jaqueline Crews OIL FIELD OPERATOR-BUZZLE BUFFER LAB - CHEMISTRY ORDERABL ES Final Result Performing Organization Address City/State/[facility] Co de Phone Number [address] [address], [facility] [phone] * CCL STAGED PERC CORONARY INTERVENTION, CCL [...] DAPT Cardiology clinic f/u us Jaqueline Crews OIL FIELD OPERATOR-BUZZLE BUFFER CV CARDIAC CATH CUPID HI OCS Final Result * (ABNORMAL) IRON + TRANSFERRIN PANEL (08/19/2024 1:41 AM CDT) Pathologist [facility] Iron 40(L) 50 - 175 ug/dL 08/19/2024 2:17 AM CDT [facility] Transferrin 116(L) 174 - 382 mg/dL 08/19/2024 2:17 AM CDT [facility] Transferrin Saturation % 28 16 - 50 % 08/19/2024 2:17 AM CDT [facility] TIBC Calculated 145(L) 240 - 450 ug/dL 08/19/2024 2:17 AM [facility] Blood BLOOD SPECIMEN / Unknown Lab Venipuncture / Unknown 08/19/2024 1:41 AM CDT 08/19/2024 2:01 AM CDT us Hannah Goodman MD LAB - CHEMISTRY ORDERABLES F inal Result Performing Organization Address City/[facility]/ZIP Co de Phone Number [address] [address], [place] [phone] * (ABNORMAL) FERRITIN (08/19/2024 1:41 AM CDT) Ferritin 560(H) 22 - 275 ng/mL 08/19/2024 2:35 AM CDT [facility] Blood BLOOD SPECIMEN / Unknown Lab Venipuncture / Unknown 08/19/2024 1:41 AM CDT 08/19/2024 2:01 AM CDT us Hannah Goodman MD LAB - CHEMISTRY ORDERABLES F inal Result Performing Organization Address City/[facility]/ZIP Co de Phone Number [address] [address], [place] [phone] * VITAMIN D 25-HYDROXY (08/19/2024 1:23 AM CDT) Vitamin D, 25 Hydroxy 36.2 30.0 - 80.0 ng/mL 08/19/2024 2:24 AM CDT [facility] Comment: The recommendations for 25-Hydroxy [...] - CHEMISTRY ORDERABLES F inal Result [facility] [address] [place] [address], [facility] [phone] * CCL PERIPHERAL ANGIOGRAM (08/18/2024 2:33 PM CDT) Anatomical Region Laterality Modality X-Ray Angiograph y Narrative 08/19/2024 2:24 PM CDT Left leg angiogram showed left AT severe diffuse disease with multiple subtotal occlusion and left PT severe diffuse disease with ANALYTICAL CHEMIST of distal PT without clear reconstitution. Successful [...] 0.018 CXI microcatheter with multiple wires(Command 18/command 14/Lion Trainer 200) to get to great toe branch of dorsalis pedis using cushion mat maker [address] - the AT-DP lesion was dilated with balloons mentioned in figure. - We turn our attention to PT. We crossed the PT ANALYTICAL CHEMIST with 0.018 CXI microcatheter with multiple wires (command 18, command 14, Lion Trainer 200) and able to go to lateral [...] using angiography. Left Posterior Tibial: Ost L EXTRACORPOREAL CIRCULATION SPECIALIST to Dist L EXTRACORPOREAL CIRCULATION SPECIALIST lesion is 100% stenosed. Stenosis was measured [...] 10% residual stenosis post intervention. Ost L EXTRACORPOREAL CIRCULATION SPECIALIST to Dist L EXTRACORPOREAL CIRCULATION SPECIALIST lesion: Angioplasty: Angioplasty independent of stent deployment [...] of Plavix. -recommend close follow up with firer glost kiln and follow up with me in clinic with JOSIANE/TBI. Hannah Goodman MD CV INVASIVE VASCULAR AND IR CUPID PROC Final Result * ACT LR - POCT ([facility]) (08/18/2024 2:08 PM CDT) Only the most recent of4 resultswithin the time period is included. 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 = ACT [...] MD LAB - COAGULATION ORDERABLES Final Result [address] [address], [facility] [phone] * HEPATITIS C ANTIBODY (06/16/2024 4:15 PM CDT) Hepatitis C Antibody Non-react sylvie Non-reac tive 06/16/2024 5:50 PM CDT [facility] Comment:Hepatitis C Antibody screen indicates [...] Alan Davenport MD LAB - CHEMISTRY ORDERABLES [facility] Result [facility] [address] [place] [address], [facility] [phone] from Last 3 Months or Most Recently Relevant to Health Maintenance Insurance AETNA AETNA MEDICARE ADV AETNA MEDICARE ADV [facility] [place] [address] * Guarantor: GRACE INTERIANO Account Type Relation to Patient Date of Phone Billing Address Personal/Family [address] [place] [address] * Guarantor: GRACE INTERIANO Account Type Relation to Patient Date of Phone Billing Address Personal/Family [address] [place] [address] [facility] [place] [address] Advance Directives * Full Code (Latest Code [...] 3:16 PM 08/19/2024 4:36 PM Care Teams Admissions Dean Relationship Specialty Start Date End Date Jeff Strickland MD [address] [place] [address] PCP - General 03/05/18 [place] [address] [address] Orthopedic Surgery 03/28/17
--- NOTE | 2024-11-08 22:46 | PC.NURSE ---
pt states he does not make urine. pt is on dialysis
[2024-11-08 22:55] LABS: Hematocrit 30.8 % (42.0-52.0); Hemoglobin 9.6 g/dL (14.0-18.0); Immature Granulocyte Percent A 0.8 % (0-0.5); Lymphocytes Absolute Auto 1.42 K/mm3 (0.9-3.2); Mean Corpuscular HGB Conc 31.2 g/dl (32-36); Mean Corpuscular Hemoglobin 28.0 pg (26-34); Mean Corpuscular Volume 89.8 fl (80-100); Nucleated Red Blood Cells Absolute Auto 0.000 K/mm3 (0.0-0.012); Nucleated Red Blood Cells Perc 0.0 % (0.0-0.2); Platelet Count Result 204 k/mm3 (150-375); Red Blood Count 3.43 M/mm3 (4.6-6.20); White Blood Count 6.5 K/mm3 (4.5-10.0)
[2024-11-08 23:07] LABS: Alanine Aminotransferase 97 U/L (6-50); Albumin Level 2.9 g/dL (3.5-5.1); Alkaline Phosphatase 138 U/L (38-126); Anion Gap 11 mmol/L (4-12); Aspartate Amino Transferase 55 U/L (17-59); Bilirubin,Total 0.3 mg/dL (0.2-1.3); Blood Urea Nitrogen 30 mg/dL (9-20); Calcium 8.1 mg/dL (8.4-10.2); Carbon Dioxide 26 mmol/L (22-30); Chloride 93 mmol/L (98-107); Estimated CRCL calculation 10 ml/min; Estimated Glomerular Filt Rate 6; Glucose 131 mg/dL (65-110); Lipase 73 U/L (23-300); Potassium 3.5 mmol/L (3.4-5.0); Sodium 130 mmol/L (137-145); Total Protein 5.5 g/dL (6.3-8.2)
[2024-11-08] MEDS: ONDANSETRON INJ 4 MG/2 ML VIAL IV PUSH (23:08)
[2024-11-08 23:11] VITALS: BP 194/89; PULSE 65; RESP 12; O2SAT 94
--- NOTE | 2024-11-09 01:23 | PC.NURSE ---
pt wishing to leave. This RN and Arlen supervisor decorating explained to pt that we are still waiting for CT scan to come back. pt states Oh bullshit. If it was something life threatening ill be by then. This RN explained to pt about signing AMA papers if pt wishes to leave. pt states Im not going to sign no damn papers. EDP made aware.
--- NOTE | 2024-11-09 01:36 | PC.NURSE ---
pt seen being wheeled out by .
[2024-11-09 01:37] VITALS: BP 194/89; PULSE 65; RESP 12; O2SAT 94
--- NOTE | 2024-11-09 04:43 | ED.ABDPAIN ---
HPI - Abdominal Pain General Chief Complaint: Abdominal Pain Stated Complaint: abd pain-does home PD Time Seen by Provider: 11/08/24 22:05 History of Present Illness HPI narrative: Patient is a dialysis patient, presents here because he has having a few hours of abdominal cramps and some nausea. Has had these symptoms in the past. No fevers or chills. No chest pain or shortness of breath. Related Data Home Medications ?Medication ?Instructions ?Recorded ?Confirmed ?Last Taken ?Type aspirin 81 mg tablet,delayed 81 mg PO HS 02/01/19 09/23/24 08/04/24 History release (Sami Low Dose Aspirin) vit C 250 mg-vit E 200 unit-zinc 1 tablet PO Q12H 02/01/19 09/23/24 08/05/24 History 12.5 mg-copper 1 [id number] tablet (ICaps AREDS2 (copper citrate)) cholecalciferol (vitamin D3) 125 125 mcg PO DAILY 10/01/22 09/23/24 08/05/24 History mcg (5,000 unit) tablet (Vitamin D3) atorvastatin 80 mg tablet 80 mg PO HS 09/02/23 09/23/24 08/04/24 History folic acid 0.8 mg-vit B comp with 800 tablet PO DAILY 04/03/24 09/23/24 08/05/24 History [id number] D3 2,000 unit tablet (Dialyvite 800-Ultra D) insulin aspart U-100 100 unit/mL 1 sliding scale dose subcut TID 04/03/24 09/23/24 08/05/24 History (3 mL) subcutaneous pen (Novolog FlexPen U-100 Insulin aspart) insulin glargine 100 unit/mL (3 35 unit subcut HS 04/03/24 09/23/24 08/04/24 History mL) subcutaneous pen (Basaglar KwikPen U-100 Insulin) lisinopril 20 mg tablet 20 mg PO BID 04/21/24 09/23/24 08/05/24 History blood-glucose transmitter (Dexcom 04/23/24 09/23/24 Unknown History G6 Transmitter device) carvedilol 25 mg tablet 25 mg PO BID 06/17/24 09/23/24 08/05/24 History tamsulosin 0.4 mg capsule 0.4 mg PO HS 06/17/24 09/23/24 08/04/24 History clopidogrel 75 mg tablet 75 mg PO HS 07/25/24 09/23/24 08/04/24 History furosemide 80 mg tablet 160 mg PO BID 09/23/24 09/23/24 Unknown History nifedipine 30 mg tablet,extended 30 mg PO DAILY 09/23/24 09/23/24 Unknown History release Allergies Allergy/AdvReac Type Severity Reaction Status Date / Time oxycodone AdvReac Unknown Hallucinati Verified 11/08/24 20:54 ng Review of Systems Review of Systems: All systems reviewed & are unremarkable except as noted in HPI and below PMFSH Past Medical History Medical History Hypertensive heart disease with heart failure Chronic diarrhea Family history of colon cancer in father Chronic ethmoidal sinusitis Nasal congestion Bilateral impacted cerumen Allergic rhinitis Chronic sinusitis Chronic recurrent sinusitis Hypertensive CHF C. difficile colitis Arthritis Kidney stones Benign prostatic hyperplasia Coronary artery disease End-stage renal disease on peritoneal dialysis Obstructive sleep apnea Insulin dependent type 2 diabetes mellitus Renal cell carcinoma Status post partial left nephrectomy. Dyslipidemia Clostridium difficile infection Gastroesophageal reflux disease Depression with anxiety Hypothyroidism Cirrhosis Pituitary tumor Status post resection. Anemia Chronic diastolic (congestive) heart failure Hypertension Surgical History Surgical History History of open reduction and internal fixation (ORIF) procedure (11/2022) Screw fixation of sternal fracture. History of colonoscopy with polypectomy History of umbilical hernia repair History of inguinal hernia repair History of coronary artery stent placement History of cardiac catheterization (08/2020) Stent x2 to the LAD. History of arthroplasty of right knee History of cataract extraction History of pituitary surgery (11/2021) History of partial nephrectomy Partial left nephrectomy for renal cell carcinoma. History of cholecystectomy (2007) Family History Family History Mother Aneurysm Hypertension Cerebrovascular accident Heart murmur Father Carcinoma of colon Social History Social History Social History: Surrogate medical decision maker: Harriet Carl, spouse. Code status: Full code. Smoking status: Never smoker Second hand tobacco smoke exposure: No Alcohol intake: never Alcohol use details: rare, holidays Substance use: never Substance use type: does not use Do You Feel Safe in your Home?: Yes Lack of Transportation: No Lack of Food: Never True Current Housing: I Have Housing Concerned About Future Housing: No Difficulty Paying Gas/Electric Bills: No Difficulty Paying for Meds: No Currently Unemployed: No Education: Trade/Vocational Certificate Difficulty w/ Childcare or Family Care: No Living arrangements: with family Additional living arrangements comments: Lives with spouse in [place]. 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 Spiritual care concerns: No Agree to blood products: Yes Exam Narrative: EXAMINATION OF ORGAN SYSTEMS/BODY AREAS: Constitutional: Vital signs per nursing GENERAL:[No acute distress, non-toxic appearing.] HEAD: Normal with no signs of head trauma. EYES: EOMI, conjunctiva normal ENT: Hearing grossly intact LUNGS: Nonlabored breathing. HEART: [Regular rate and rhythm] ABD: [Soft], [nontender to palpation] EXT: Normal range of motion SKIN: [No rashes or lesions.] NEURO: [Alert and oriented x 3. No gross focal sensory or strength deficits.] PSYCH: Normal affect Procedures EJ/Peripheral Line Arm R: EJ/Peripheral Line Date: 11/08/24 EJ/Peripheral Line Time: 21:50 Skin Cleansed in Sterile Fashion: Yes Ultrasound Guided: Yes Size (gauge): 20 IV Secured and Dressing Applied: Yes Patient Tolerated Procedure: well and no complications Course Vital Signs Vital signs: Vital Signs Temperature 97.6 F 11/08/24 20:50 Pulse Rate 67 11/08/24 20:50 Respiratory Rate 18 11/08/24 20:50 Blood Pressure 171/71 H 11/08/24 20:50 Pulse Oximetry 100 11/08/24 20:50 Oxygen Delivery Room Air 11/08/24 20:50 Temperature 97.6 F 11/08/24 20:50 Pulse Rate 65 11/09/24 01:37 Respiratory Rate 12 11/09/24 01:37 Blood Pressure 194/89 H 11/09/24 01:37 Pulse Oximetry 94 11/09/24 01:37 Oxygen Delivery Room Air 11/08/24 20:50 MDM - Abdominal Pain MDM Narrative Medical decision making narrative: Patient is a dialysis patient, presents here because he has having a few hours of abdominal cramps and some nausea. Has had these symptoms in the past. No fevers or chills. No chest pain or shortness of breath. Vitals notable for high blood pressure but he is a dialysis patient. Physical exam revealed soft abdomen without significant tenderness. Based on the patient's history and physical exam, my differential includes but is not limited to [gastritis, gastroenteritis, cholecystitis, pancreatitis, appendicitis, doubt peritonitis without any fevers or chills or cloudy dialysate]. [IV access was established by myself via ultrasound after patient spoke threateningly to other staff that he only gets stuck once and that was it. Patient was given zofran]. CBC, BMP, lipase, LFTs, bilirubin and alk phos were obtained by myself. Labs were pertinent for elevated BUN and creatinine baseline for patient. [Decision was made to obtain a CT-abdomen to evaluate for acute abdominal process.] Patient is extremely angry that I sleepy have been waiting for the radiology, multiple people including myself did explain that unfortunately the overnight CT did take a while to come back, I did review the CT myself did not see any obvious abnormality, but I am not her train radiologist I did apologize to the patient regarding the weight, he became more more irate and stated that he was not waiting, this was bullshit, demanded IV removal, and demanded that we get the CT read now. At this point, he is informed that nobody is holding him here against his will, that he can leave but risks missed or delayed diagnosis lead to harm including . AMA paperwork provided, patient states he is not signing the damn paperwork. Left AMA in stable condition. He is informed he can always return if he changes mind I did follow up on CT read, no acute abnormality. Lab Data 11/08/24 22:24 11/08/24 22:24 Labs: Lab Results 11/08/24 Range/Units 22:24 WBC 6.5 (4.5-10.0) K/mm3 RBC 3.43 L (4.6-6.20) M/mm3 Hgb 9.6 L (14.0-18.0) g/dL Hct 30.8 L (42.0-52.0) % MCV 89.8 (80-100) fl MCH 28.0 (26-34) pg MCHC 31.2 L (32-36) g/dl RDW 16.4 H (11.5-14.5) % Plt Count 204 (150-375) k/mm3 MPV 10.5 H (7.4-10.4) fl Immature Gran % (Auto) 0.8 H (0-0.5) % Neut % (Auto) 60.2 (45.5-73.1) % Lymph % (Auto) 21.8 (18.3-44.2) % [place] % (Auto) 15.4 H (2.6-8.5) % Eos % (Auto) 1.5 (0-4.4) % Baso % (Auto) 0.3 (0.2-1.2) % Lymph # (Auto) 1.42 (0.9-3.2) K/mm3 [place] # (Auto) 1.0 H (0.1-0.6) K/mm3 Eos # (Auto) 0.1 (0-0.3) K/mm3 Baso # (Auto) 0.0 (0.0-0.1) K/mm3 Abs Immat Gran (auto) 0.05 H (0.00-0.031) K/mm3 Absolute Neuts (auto) 3.9 (1.3-6.7) K/mm3 Absolute Nucleated RBC 0.000 (0.0-0.012) K/mm3 Nucleated RBC % 0.0 (0.0-0.2) % Sodium 130 L (137-145) mmol/L Potassium 3.5 (3.4-5.0) mmol/L Chloride 93 L (98-107) mmol/L Carbon Dioxide 26 (22-30) mmol/L Anion Gap 11 (4-12) mmol/L BUN 30 H (9-20) mg/dL Creatinine 8.33 H (0.7-1.3) mg/dL Estim Creat Clear Calc 10 ml/min Estimated GFR 6 L (59 - ) Glucose 131 H (65-110) mg/dL Calcium 8.1 L (8.4-10.2) mg/dL Total Bilirubin 0.3 (0.2-1.3) mg/dL AST 55 (17-59) U/L ALT 97 H (6-50) U/L Alkaline Phosphatase 138 H (38-126) U/L Total Protein 5.5 L (6.3-8.2) g/dL Albumin 2.9 L (3.5-5.1) g/dL Lipase 73 (23-300) U/L Discharge Plan Discharge Clinical Impression: Nausea Abdominal pain Qualifiers: Abdominal location: lower abdomen, unspecified Qualified Code(s): R10.30 - Lower abdominal pain, unspecified Patient Disposition: Left Against Medical Advice Condition: Stable Instructions: Antibiotic Form Patient Language: Bahraini Prescriptions: No Action aspirin [Sami Low Dose Aspirin] 81 mg Tablet,Delayed Release (Dr/Ec) 81 mg PO HS ICaps AREDS2 (copper citrate) 250 mg-200 unit -12.5 mg-1 mg Tablet 1 tablet PO Q12H pantoprazole 40 mg tablet,delayed release (DR/EC) 40 mg PO QAM Qty: 30 3RF (DME) Dexcom G6 Transmitter Device See Rx Instructions .Route Rx Instructions: As directed gabapentin 100 mg tablet 100 mg PO BID Qty: 60 1RF nifedipine 30 mg tablet extended release 30 mg PO DAILY lanthanum 1,000 mg tablet,chewable 1,000 mg PO TID Qty: 1 0RF Rx Instructions: administer with food; chew thoroughly before swallowing furosemide 80 mg tablet 160 mg PO BID lisinopril 20 mg tablet 20 mg PO BID famotidine 20 mg tablet 20 mg PO DAILY Qty: 30 0RF ondansetron 4 mg tablet,disintegrating 4 mg PO Q8H PRN (Reason: nausea and vomiting) Qty: 8 0RF cholecalciferol (vitamin D3) [Vitamin D3] 125 mcg (5,000 unit) Tablet 125 mcg PO DAILY atorvastatin 80 mg tablet 80 mg PO HS carvedilol 25 mg tablet 25 mg PO BID tamsulosin 0.4 mg capsule 0.4 mg PO HS Dialyvite 800-Ultra D 0.8-2,000 mg-unit tablet 800 tablet PO DAILY insulin aspart U-100 [Novolog FlexPen U-100 Insulin] 100 unit/mL (3 mL) insulin pen 1 sliding scale dose subcut TID Patient Comments: PATIENT TAKES 5 UNITS WITH MEALS SCHEDULED AND GOES UP TO 15 UNITS IF IT GETS TO 300 insulin glargine [Basaglar KwikPen U-100 Insulin] 100 unit/mL (3 mL) insulin pen 35 unit subcut HS Patient Comments: 40 UNITS IN MORNING clopidogrel 75 mg tablet 75 mg PO HS hydrocodone-acetaminophen 5-325 mg tablet 1 tablet PO Q6H PRN (Reason: pain) Qty: 30 0RF levothyroxine 112 mcg tablet 112 mcg PO DAILY Qty: 90 2RF lorazepam [Ativan] 1 mg tablet 1 mg PO HS PRN (Reason: sleep) Qty: 14 0RF Follow-up/Referrals: Jeff Strickland MD [Primary Care Provider, Family Practice]
== END 2024-11-09 01:39 | disposition left against medical advice (07) ==
PROVIDERS: Emergency Provider Emergency Medicine; PCP Family Medicine
DX: R10.30 Lower abdominal pain, unspecified (principal); R11.0 Nausea; I13.2 Hypertensive heart and chronic kidney disease with heart failure and with stage 5 chronic kidney disease, or end stage renal disease; E11.22 Type 2 diabetes mellitus with diabetic chronic kidney disease; N18.6 End stage renal disease; I50.9 Heart failure, unspecified; Z99.2 Dependence on renal dialysis; Z79.4 Long term (current) use of insulin; M19.90 Unspecified osteoarthritis, unspecified site; I25.10 Atherosclerotic heart disease of native coronary artery without angina pectoris; G47.30 Sleep apnea, unspecified; K21.9 Gastro-esophageal reflux disease without esophagitis; F41.9 Anxiety disorder, unspecified; F32.A Depression, unspecified; E03.9 Hypothyroidism, unspecified; D64.9 Anemia, unspecified
CPT/HCPCS: 36415; 74176; 80053; 83690; 85025; 96374; 99284; J2405

== ENCOUNTER 2024-11-13 19:58 | Emergency (ER) | payer MEDICARE, SELFPAY ==
--- OUTSIDE RECORDS SUMMARY | 2009-04-18 10:00 | XMS_ITS | Continuity of Care Document ---
Author Organization [facility] Address [address] [place] [address] Phone Care Team Providers Care Medical Billing Associate Name Role Phone Kee Rodriguez Unavailable Unavailable Procedures Procedure Date Office/outpatient Visit, Est Eye Exam Established Pt Advance Directives Directive Yes / No Effective Date File Name No Information Encounters Encounter Description Practice Location Reason(s) For Visit Diagnoses Date Provider Providers Copied on Encounter Office/outpat ient Visit, Est [facility], [address] [place] [address] [address], [place], [place], [address], tel:[phone] SEC [facility] No Information Mar-0 2-201 0 Krishnasamy Kee. [address] [facility] [place] [address], [place], [place], [facility], [place]. tel:[phone] [facility], [address] [place] [address] [address], [place], [place], [address], tel:[phone] SEC [facility] No Information Nhan-3 0-200 7 David OD Freddy. [address], [place], [place], [facility], [place]. tel:[phone] Family History Family Member Type Diagnosis Age [...]
--- OUTSIDE RECORDS SUMMARY | 2024-01-19 09:15 | XMS_ITS ---
Author Organization [facility] Address [address] [place] [address] [place] [address] Care Team Providers Care Licensing Registration Examiner Name Role Phone DONNIE WOOD MD Primary Care Provider Lance Sergio Trujillo Unavailable [phone] REASON FOR VISIT Left > Right Low [...] 01/19/2024 BMI 33.81 kg/m2 01/19/2024 Post procedure xi=530/71,65, 16.Discharged home ambulatory with per ambulatory. No acute distress noted. Encounters Encounter Location Date Provider Diagnosis [facility] [address] [place] [address] [place] [address] 01/19/2024 Sergio Schmitzick Radiculopathy, lumba r region [...] discharged home in good condition with a patrol driver. X-ray time: 25 seconds Progress Notes [...] patient's typical axial low back pain. John's, [place]ine's and Gaenslen's are positive bilaterally. There is [...]
--- OUTSIDE RECORDS SUMMARY | 2024-02-03 06:45 | XMS_ITS ---
Author Organization [facility] Address [address] [facility] [place] [address] Care Team Providers Care Neck Skewer Name Role Phone DONNIE WOOD MD Primary Care Provider Lance Sergio Trujillo Unavailable [phone] ALLERGIES No Known Allergies REASON FOR VISIT Follow Up, Left Knee Pain MEDICATIONS Medication SIG (Take, Route, Frequency, Duration) Notes Start Date End Date Status Pantoprazole Sodium 40 MG TAKE 1 TABLET BY MOUTH DAILY Oral for 90 Active dilTIAZem HCl ER 120 MG TAKE 1 CAPSULE B Y MOUTH TWICE DAILY Oral for 90 Active Lisinopril 20 MG 1 tablet Orally Once a day for 30 day(s) Active hydrALAZINE HCl 10 MG 1 tablet with food Orally Three times a day Active LORazepam 0.5 MG TAKE 1 TABLET BY BRUCE TH AT BEDTIME NEEDED FOR ANXIETY Oral for 30 Active Levothyroxine Sodium 112 MCG 1 tablet in the morning on an empty stomach Orally Once a day Active Basaglar KwikPen 100 UNIT/ML as directed Subcutaneous Act sylvie Atorvastatin Calcium 80 MG 1 tablet Oral ly Once a day Active Gabapentin 300 MG 1 capsule Orally Thr ee a day Active Furosemide 80 MG 1 tablet Orally Once a day for 30 day(s) Active Aspirin 81 MG 1 tablet Orally Once a day Active Vitamin D3 125 MCG (5000 UT) 1 capsule Orally Once a day for 30 day(s) Active Tylenol PM Extra Strength 500-25 MG 1 tablet at bedtime as needed Orally Once a day for 30 day(s) Active Fenofibrate 145 MG 1 tablet Orally Once a day for 30 day(s) Active NovoLOG FlexPen 100 UNIT/ML as directed Subcutaneous Active cloNIDine HCl 0.1 MG/24HR 1 patch to ski n Transdermal for 30 day(s) Active Dialyvite 800 0.8 MG 1 tablet Orally Onc e a day for 30 day(s) Active Carvedilol 25 MG 1 tablet with food O rally Twice a day for 30 day(s) Active Tadalafil 5 MG 1 tablet as needed O rally Once a day for 30 day(s) Active PreserVision AREDS - as directed Orally Active SOCIAL HISTORY Tobacco Use: Social History Observation Description Date Details (start date - stop date) Never Smoker NA - NA Sex Assigned At : Social History Observation Description Sex Assigned At Unknown Tobacco Use/Smoking Question Answer Notes Are you a nonsmoker Section Notes: The patient is retired. 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 He denies tobacco, alcohol, or illicit drug abuse VITAL SIGNS Blood pressure systolic 121 mm Hg 02/03/20 24 Blood pressure diastolic 70 mm Hg 024 Heart Rate 64 /min 02/03/2024 Respiratory Rate 18 /min 02/03/2024 Height 5 ft 9 in in 02/03/2024 Weight 229 lbs 02/03/2024 BMI 33.81 kg/m2 02/03/2024 Encounters Encounter Location Date Provider Diagnosis [facility] [address] [place] [id number] 02/03/2024 Sergio Rivera Other chest pain R07.89 ; Pain in left knee M25.562 ; Radiculopathy, lumbar region M54.16 ; Other intervertebral disc degeneration, lumbar region M51.36 ; 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 Patient verbalized understanding and agrees with current plan. He was also instructed to follow up with his orthopedic surgeon. He states he has an appointment on February 08 for further evaluation with Dr. Myers 02/03/2024 Radiculopathy, lumbar region (ICD-10 - M54.16) 02/03/2024 Other intervertebral disc degeneration, lumbar region (ICD-10 - M51.36) 02/03/2024 Osseous stenosis of neural canal of lumbar region (ICD-10 - M99.33) 02/03/2024 Spondylosis without myelopathy or radiculopathy, lumbar region (ICD-10 - M47.816) 02/03/2024 long-term (current) use of anticoagulants (ICD-10 - Z79.01) 02/03/2024 Other The above-named patient was evaluated in conjunction with Dr. Rivera. I have discussed and reviewed all of the pertinent history, physical examination findings and diagnostic imaging results with him. As a result of our discussion, Dr. Rivera has determined the above assessment and directed the treatment plan. This note was dictated using voice recognition software and therefore inadvertent errors may have occurred. This note was dictated by KELSIE Chakraborty. Total Time Spent with Patient and Medical Decision Makin minutes PLAN OF TREATMENT Treatment Notes Assessment Notes Pain in left knee The patient was inst ructed to notify the office after imaging has been obtained so it can be reviewed and treatment plan formulated moving forward. Patient verbalized understanding and agrees with current plan. He was also instructed to follow up with his orthopedic surgeon. He states he has an appointment on February 08 for further evaluation with Dr. Myers Other The above-named patient was evaluated in conjunction with Dr. Rivera. I have discussed and reviewed all of the pertinent history, physical examination findings and diagnostic imaging results with him. As a result of our discussion, Dr. Rivera has determined the above assessment and directed the treatment plan. This note was dictated using voice recognition software and therefore inadvertent errors may have occurred. This note was dictated by KELSIE Chakraborty. Total Time Spent with Patient and Medical Decision Makin minutes Pending Test Test Name Order Date MRI : Knee, left 02/03/2024 Next Appt Details Follow Up: 4 Weeks OPV and f ollow-up with orthopedic surgeon on Feb 08, Reason: Progress Notes * Examination Category Sub-Category Detail [...] patient's typical axial low back pain. John's, [place]'s and Gaenslen's are positive bilaterally. There is tenderness to palpation over the left sacroiliac joint and greater trochanter. There is tenderness to palpation over the bilateral lumbar paraspinal muscles and palpable myofascial trigger points throughout. There is weakness and atrophy of the bilateral lumbar paraspinal muscles, There is diffuse tenderness to palpation about the left knee joint. There is crepitus with range of motion testing Neurological: There is positive st raight leg [...]
--- OUTSIDE RECORDS SUMMARY | 2024-03-03 06:30 | XMS_ITS ---
Author Organization [facility] Address [address] [place] [address] [place] [address] Care Team Providers Care Health Safety Manager Name Role Phone DONNIE WOOD MD Primary Care Provider Lance Sergio Trujillo Unavailable [phone] ALLERGIES No Known Allergies REASON FOR VISIT [...] retired. 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 He denies tobacco, alcohol, or illicit drug abuse PROBLEMS Problem Type ICD Code Onset Dates Problem Status W/U Status Risk SNOMED Code Notes Problem Primary osteoarthritis, 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) Active confirmed Localized, primary osteoarthritis of the shoulder region (725434014) VITAL SIGNS Blood pressure systolic 112 mm Hg 03/03/19 25 Blood pressure diastolic 62 mm Hg 025 Heart Rate 59 /min 03/03/2024 Respiratory Rate 18 /min 03/03/2024 Height 5 ft 9 in in 03/03/2024 Weight 229 lbs 03/03/2024 BMI 33.81 kg/m2 03/03/2024 Encounters Encounter Location Date Provider Diagnosis [facility] [address] [facility] [place] [address] 03/03/2024 Sergio Stynowick Pain in left knee M25.562 ; Primary osteoarthritis, unspecified shoulder M19.019 ; Other chest pain R07.89 ; Radiculopathy, lumbar region M54.16 ; Other intervertebral disc degeneration, lumbar region M51.36 ; 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 John's, [place]'s and Gaenslen's are positive bilaterally. There is [...]
--- OUTSIDE RECORDS SUMMARY | 2024-03-08 07:45 | XMS_ITS ---
Author Organization [facility] Address [address] [place] [address] [place] [address] Care Team Providers Care Timber Cruiser Name Role Phone DONNIE WOOD MD Primary Care Provider Robba Sergio Trujillo Unavailable [phone] REASON FOR VISIT BILAT SHOULDER JOINT INJECTION (NEED XRAY - BEING DONE AT [facility]) MEDICATIONS Medication SIG (Take, Route, Frequency, Duration) [...] Location Date Provider Diagnosis [facility] [address] [place] [phone] 03/08/2024 Sergio Rivera Primary osteoarthritis, unspecified shoulder [...] discharged home in good condition with a sprinkler driver. X-ray time: 6 seconds Progress Notes [...] patient's typical axial low back pain. John's, Clear's and Gaenslen's are positive bilaterally. There is [...] Follow-up: Follow-up Plan documen wendy:: Yes [facility] Quality 2020: [facility] Documented:: Compliant
--- OUTSIDE RECORDS SUMMARY | 2024-03-31 10:13 | XMS_ITS ---
Author Organization [facility] Address [address] [facility] [place] [address] Care Team Providers Care Instrument Assembler Name Role Phone DONNIE WOOD MD Primary Care Provider Unavaila Sergio Trujillo Unavailable [phone] Encounters Encounter Location Date Provider Diagnosis [facility] [address] [facility] [place] [address] 03/31/2024 Sergio Rivera PLAN OF TREATMENT No Information
--- OUTSIDE RECORDS SUMMARY | 2024-11-12 05:48 | XMS_ITS | Encounter Summary ---
Author Organization [facility] Address [address] [place] [address] Care Team Providers Care Last Picker Name Role Phone Deandre Bojorquez MD Unavailable [phone] eJff Strickland MD Primary Care Provider [phone] Reason for Visit * Radiology Services (Routine) - Open Specialty Diagnoses / Procedures Referred By Contac t Referred To Contact Interventional Radiology Diagnoses PAD (peripheral artery disease) Amputation of left great toe Procedures IR Angiogram Bilateral Leg IR Angiogram Left Leg Elroy Holcomb MD [facility] 2L [place] [address] Phone: tel: fax: [facility] [address] [place] [address] Phone: tel: fax: Referral ID Status Reason Start Date Expiration Date Visits Re quested Visits Authorized [id number] Open 11/02/2024 11/02/2025 1 1 Encounter Details Date Type Department Care Team (Latest Contact Info) Description 11/12/2024 5:48 AM CDT - 11/12/2024 12:40 PM CDT Hospital Encounter [facility] [address] [place] [id number] Elroy Holcomb MD [address] [place] [address] 2L [place] [address] Interven Radiology Discharge Disposition: Home or Self Care Social History Tobacco Use Types Packs/Day Years Used Date Smoking Tobacco: Never Smokeless Tobacco: Never Alcohol Use Standard Drinks/Week Comments Not Currently 0 (1 standard drink = 0.6 oz pur e alcohol) socially in past AUDIT-C Answer Date Recorded Q1: How often do you have a drink containing alcohol? Never 11/12/2024 Q2: How many drinks containi ng alcohol do you have on a typical day when you are drinking? Patient does not drink Q3: How often do you have si x or more drinks on one occasion? Never 11/12/2024 Overall Financial Resource Strain (CARDIA) Answe r Date Recorded How hard is it for you to pa y for the very basics like food, housing, medical care, and heating? Not hard at all 09/24/2024 PHQ-2 Answer Date Recorded Patient Health Questionnaire-2 Score 6 10/05/2024 [facility] - [...] any time in the past 12 m [facility], were you homeless or living in a jail (including now)? 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 Gender Identity Male 07/02/2021 2:37 PM CDT Sexual Orientation Straight 07/02/2021 2: 37 PM CDT documented as of this encounter Last Filed Vital Signs Vital Sign Reading Time Taken Comments Blood Pressure 143/65 11/12/2024 12:28 PM CDT Pulse 61 11/12/2024 12:28 PM CDT Temperature 36.5 C (97.7 F) 11/12/2024 9:04 AM CDT Respiratory Rate 11 11/12/2024 12:27 PM CDT Oxygen Saturation 98% 11/12/2024 12:27 PM CDT Inhaled Oxygen Concentration 30% 11/12/2024 1 2:00 PM CDT Weight 110.7 kg (244 lb) 11/12/2024 6:23 AM CDT Height 172.7 cm (5' 8) 11/12/2024 6:23 AM CDT Body Mass Index 37.1 11/12/2024 6:23 AM CDT documented in this encounter Functional Status * Question Answer Date of Assessment Author Q1: How often do you have a drink containing alcohol? Never 11/12/2024 6:31 AM CDT Emmanuel Berrios RN * Is person deaf or have serious hearing difficulty? Answer Date of Assessment Author No 11/12/2024 10:41 AM ELIANAT Yael Red RN * Is person blind or have serious difficulty seeing? Answer Date of Assessment Author Yes 11/12/2024 10:41 AM CDT Yael Red RN * Does person have serious difficulty walking/climbing stairs? Answer Date of Assessment Author Yes 11/12/2024 10:41 AM ELIANAT Yael Red RN * Does person have difficulty dressing/bathing? Answer Date of Assessment Author Yes 11/12/2024 10:41 AM ELIANAT Yael Red RN * Does person have difficulty doing errands alone? Answer Date of Assessment Author Yes 11/12/2024 10:41 AM CDT Yael Red RN documented as of this encounter Mental Status * Does person have difficulty concentrating/remembering/making decisions? Answer Entry Date Author No 11/12/2024 10:41 AM CDT Yael Red RN documented in this encounter Discharge Instructions * Discharge Instructions* Elroy Owusu MD - 11/12/2024 9:08 AM CDT Activity: No heavy lifting anything over 10 lbs, bending, or straining for about 2 weeks. Otherwise you may resume your usual activities, including driving. Diet: You may resume your usual diet. Medications: Resume your medications as prescribed Puncture site: Keep site clean and dry. You may keep the site open to air or apply a band-aid for comfort. No tub bathing for a week, but you may shower. Mild tenderness and bruising is normal for a few days. You may take Tylenol as need for discomfort. Call us at [phone]: For severe pain, swelling, redness, warmth, or drainage at the puncture site. A lump near the puncture site that increases in size Constant bleeding at the puncture site; if this occurs, hold pressure. For continual, heavy bleeding, hold pressure and call [phone] Pain, numbness, tingling, weakness, difficulty moving, or change in color or temperature of an extremity Follow Up: Based on the pictures taken today, Dr Holcomb plans for a procedure on the right leg to improve the blood flow in the next week or two, the arborist representative will reach out to you. If you do not hear from them in the next few days, please call the office number below. If you have any questions or concerns call the Vascular Surgery Office at [phone]. The office is open Friday-Friday from 8:00AM-4:00PM. After 4:00PM there is the on-call resident available for patients to call with any urgent questionsor concerns. Call the [facility] main phone number at [phone] and ask for the Vascular Surgery Resident construction recruiter. To make, change, or cancel an appointment call [phone]. documented in this encounter Medications at Time of Discharge Aspirin Low Dose 81 MG tabletIndications: CAD in navajo artery TAKE 1 TABLET BY MOUTH ONCE DAILY 90 tablet 3 5 atorvastatin (Lipitor) 80 MG tabletIndications: Coronary artery disease involving navajo coronary artery of navajo heart without angina pectoris Take 1 (one) tablet by mouth once daily 90 tablet 3 4 B Jzgelkr-H-Ztdsd Acid (Dialyvite 800) 0.8 MG 1 tablet Orally Once a day for 30 day(s) Basaglar AllenikPen (Basaglar) penIndications:Unc ontrolled type 2 diabetes mellitus with hyperglycemia (HCC) Inject 35 (thirty five) Units subcutaneously 2 times daily 252 mL 5 09/17/19 26 calcium carbonate (Tums) 500 MG chew tablet Take 2 (two) tablets by mouth every 2 hours as needed for Heartburn (chew and swallow) 5 carvedilol (Coreg) 25 MG tablet Take 1 (one) tablet by mouth 2 times daily 2 Cholecalciferol (VITAMIN D-3 PO) Take 2,000 Units by mouth clopidogrel (plaVIX) 75 MG tablet Take 1 (one) tablet by mouth once daily 90 tablet 3 07/21/2024 4:41 PM CDT 5 diphenhydrAMINE-AP AP, sleep, (Tylenol PM Es) 25-500 MG tablet Take 1 (one) tablet by mouth at bedtime fluconazole (Diflucan) 100 MG tablet TAKE 1 TABLET BY MOUTH EVERY DAY WHILE ON ANTIBIOTICS 5 furosemide (Lasix) 80 MG tablet Take 2 (two) tablets by mouth 2 times daily 2 gabapentin (Neurontin) 100 MG capsule Take 1 (one) capsule by mouth 2 times daily for 90 days 180 capsule 5 12/25/19 25 hydrALAZINE (Apresoline) 10 MG tabletIndications: Resistant hypertension Take 2 (two) tablets by mouth 3 times daily as needed (For SBP greater than 180) 90 tablet 3 5 HYDROcodone ER 12 hr (Zohydro ER) 15 MG capsule Take 1 (one) capsule by mouth 5 HYDROcodone-acetam inophen (Clay) 5-325 MG tablet Take 1 (one) tablet by mouth every 4 hours as needed pain 5 insulin pen needle (BD UF III) 31G X 8 MM needle 1 (one) Each 4 times daily 200 Each 3 1 Lancets (ONETOUCH DELICA PLUS 33G EXTRA FINE LANCET) OneTouch Delica Plus Lancet 33 gauge levothyroxine (SYNTHROID) 112 MCG tablet Take 1 (one) tablet by mouth once daily lisinopril (Prinivil; Zestril) 20 MG tabletIndications: Coronary artery disease involving navajo coronary artery of navajo heart without angina pectoris,Resistant hypertension Take 1 (one) tablet by mouth 2 times daily 60 tablet 3 5 07/08/19 26 LORazepam (Ativan) 0.5 MG tablet Take 1 (one) tablet by mouth nightly as needed for Anxiety or Insomnia midodrine (Proamatine) 2.5 MG tablet Take 1 (one) tablet by mouth 3 times daily before meals 5 Multiple Vitamins-Minerals (ICAPS AREDS 2 PO) pantoprazole EC (PROTONIX) 40 MG tablet Take 1 (one) tablet by mouth once daily potassium chloride ER (K-TAB) 20 MEQ tablet Take 1 (one) tablet by mouth once daily 5 tamsulosin (Flomax) 0.4 MG capsule Take 1 (one) capsule by mouth once daily 5 documented as of this encounter Progress Notes * Yael Red RN - 11/12/2024 10:35 AM CDT Spoke with vascular surgery regarding pain and spoke with Nay and she will come and see the pt. * Enma Reid RN - 11/12/2024 8:54 AM CDT Interventional Radiology Nursing - End Procedure Note Sedation: Versed: 2 mg, Fentanyl: 100 mcg Sedation start time: 0817 hours Procedure start time: 0818 hours Procedure end time: 852hours Contrast: 60 mL of Isovue-300 Fluoroscopy time: 4.2 min documented in this encounter H&P Notes * Antonina Langley MD - 11/12/2024 7:05 AM CDT Vascular Surgery History and Physical Encounter Date: 11/12/2024 Patient's Primary Care Physician: Jeff Strickland MD Name: Kendall Carl Age: [age] year old Sex: male Date: 11/12/2024 History of Present Illness: Kendall Carl is a 69 year old male with h/o DM, ESRD on PD, HTN, CHF scheduled for left leg angiogram with possible intervention today with Dr. Holcomb. He has a history of PAD with CLTI and has had left first toe amputation 09/11/2024. He has had frequent pain since the procedure and delayed wound healing. Last seen in clinic and at that time scheduled for angiogram. No changes in overall health since last visit. Has been NPO. Patient is taking ASA and Plavix. Past Medical History Past Medical History: Diagnosis Date Arthropathy Dr Strickland manages. 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 Becerra in [place]. CKD (chronic kidney disease), stage V (HCC) Community acquired pneumonia 2018 [facility] hospitalized. Diabetes mellitus (HCC) 20 years. [facility] lee. Pathology Supervisor Dr. Davis at [place]. 03/26/21 last seen. Esophageal reflux takes med [...] on CPAP Renal cell carcinoma (HCC) [address] [place] Pruett surgeon. followed up every 6 [...] PROCEDURE/SURGERY N/A 08/18/2024 N/A; Angiogram - Peripheral Family History Problem Relation Name Age of Onset Aneurysm, Brain Mother Cancer - Colon Father Cancer Sister Social History Occupational History Not on file Tobacco Use Smoking status: Never Smokeless tobacco: Never Vaping Use Vaping status: Never Used Substance and Sexual Activity Alcohol use: Not Currently Comment: socially in past Drug use: Never Sexual activity: Not Currently Medications Prior to Admission Medication Sig Dispense Refill Aspirin Low Dose 81 MG tablet TAKE 1 TABLET BY MOUTH ONCE DAILY 90 tablet 3 atorvastatin (Lipitor) 80 MG tablet Take 1 (one) tablet by mouth once daily 90 tablet 3 B Umzdvzq-Q-Xzbws Acid (Dialyvite 800) 0.8 MG 1 tablet [...] daily for 90 days 180 capsule 0 hydrALAZINE (Apresoline) 10 MG tablet Take 2 (two) tablets by mouth 3 times daily as needed (For SBP greater than 180) (Patient taking differently: Take 1 (one) tablet by mouth 3 times daily as needed (For SBP greater than 180)) 90 tablet 3 HYDROcodone ER 12 hr (Zohydro ER) 15 MG capsule Take 1 (one) capsule by mouth HYDROcodone-acetaminophen (Clay) 5-325 MG tablet Take 1 (one) tablet by mouth every 4 hours as needed pain insulin pen needle (BD UF III) 31G [...] nightly as needed for Anxiety or Insomnia midodrine (Proamatine) 2.5 MG tablet Take 1 (one) tablet by mouth 3 times daily before meals Multiple Vitamins-Minerals (ICAPS AREDS 2 PO) pantoprazole EC (PROTONIX) 40 MG tablet Take 1 (one) tablet by mouth once daily potassium chloride ER (K-TAB) 20 MEQ tablet Take 1 (one) tablet by mouth once daily tamsulosin (Flomax) 0.4 MG capsule Take 1 (one) capsule by mouth once daily Allergies Allergen Reactions Oxycodone Psychiatric Review of Systems Pertinent positives listed above Exam Vitals: 11/12/24 0623 11/12/24 0640 11/12/24 0645 BP: 114/67 111/78 Pulse: 66 62 Resp: 16 9 Temp: 98.2 ??F (36.8 ??C) SpO2: 99% 100% Weight: 110.7 kg (244 lb) Height: 1.727 m (5' 8) BP 111/78 Pulse 62 Temp 98.2 ??F (36.8 ??C) (Oral) Resp 9 Ht 1.727 m (5' 8) Wt 110.7 kg (244 lb) SpO2 100% Physical Exam: Gen: NAD and A&O x 3 ENT: Normocephalic Resp: unlabored breathing on RA CV: RRR MSK: Left great toe s/p amputation with nonhealing wound bed Bilateral dp signals dopplerable Right second toe with evidence of ischemia with black tissue Psych: Appropriate mood and affect Data Recent Labs Component Name 10/27/24235210/19/24144510/17/24 1933 WBC 7.8 7.9 7.0 HGB 9.0* 11.3* 10.6* HCT 27.9* 34.1* 32.6* Recent Labs Component Name 10/27/24235210/21/24 1311 10/19/24 1446 10/17/243 10/09/24 1639 NA 132* - 137 138 136 CL 95* - 99 98 97* CO2 25 - 26 28 25 BUN 34* - 31* 29* 33* CREATININE 7.86* - 7.75* 7.94* 8.25* CALCIUM 8.5 - 8.9 8.8 8.8 MAGNESIUM - 1.6 1.6 - 1.3* Recent Labs Component Name 10/27/24235210/19/24144510/17/24 1933 PROT 5.6* 6.1 5.9* ALB 2.2* 2.4* 2.2* TBILI 0.3 0.2 0.3 AST 48* 49* 40* ALT 56* 56* 59* ALKPHOS 104 143 110 Recent Labs Component Name 07/28/20 0814 INR 1.0 No results for input(s): TACROLIMUS in the last 32820 hours. Imaging No results found. Assessment : Kendall Carl is a 69 year old male with h/o DM, ESRD on PD, HTN, CHF scheduled for left leg angiogram with possible intervention today with Dr. Holcomb. Plan: - NPO since midnight - Consent obtained and in chart - OR today for surgery - Risks and benefits of the procedure including but not limited to bleeding (including risk of hematoma), infection, damage to surrounding structures were discussed with the patient and they elected to proceed. Sedation Risk Assessment Status Test none Anesthesis History past endotracheal intubation without difficulties History of airway problems: none Expected Level: Moderate Sedation Indication: Sedation is required to allow for angiogram and possible stenting. Consent: Risks, benefits and alternatives were discussed with patient and consent for procedure wasobtained. PO Intake: Regular Meal > 8 hours ASA Class: Class 3 - Severe Systemic Disease, Definite Functional Limitations Mallampati: Grade 3: Soft palate visible, posterior pharyngeal wall not visible. Medication: Lidocaine: Local infiltration. Fentanyl : IV. Ativan: IV Patient to be discussed with Dr. Holcomb. Antonina Langley MD General Surgery Resident, PGY-2 11/12/24 7:44 AM Cosigned by Elroy Holcomb MD at 11/12/2024 7:45 AM CDT documented in this encounter OR Notes * Brief Op Note - Elroy Owusu MD - 11/12/2024 8:00 AM CDT Brief Op Note Procedure: Ultrasound guided access of the right common femoral artery Second order catheterization and left lower extremity angiogram with runoff Right lower extremity angiogram with runoff Mynx 5 Fr closure device 36 minutes of monitored moderate sedation Patient Name: Kendall Carl Date of Service: 11/12/2024 Pre-Op Diagnosis: PAD, non-healing wound Post-Op Diagnosis: Same Surgeon: Elroy Holcomb MD Bar Waiter/Waitress(s): Griffin Rodriguez MD; Elroy Owusu MD Anesthesia Type:Moderate sedation 2mg Versed, 100 mcg Fentanyl Complications: none apparent Findings: Left lower extremity angiogram with patent INSTRUMENTATION ENGINEERING TECHNICIAN, SFA with areas of < 50% stenosis, patent TP trunk with occlusions in the peroneal and PT shortly after origin, with single vessel runoff to the foot via the AT with occlusion in the DP in the foot. Right lower extremity angiogram with patent INSTRUMENTATION ENGINEERING TECHNICIAN, SFA, and TP trunk with an occluded AT distally, and occlusion in peroneal at level of ankle, and multifocal areas of stenosis in the PT which appears occluded at the level of the ankle. Successful deployment of 5 Fr Mynx control closure device EBL: Minimal blood loss Urine Output : No richardson IV Fluid Intake: Not totalled Drains: * No LDAs found * Specimen(s): * No specimens in log * Implant(s): * No implants in log * Elroy Owusu MD Cosigned by Elroy Holcomb MD at 11/12/2024 10:29 AM CDT documented in this encounter Plan of Treatment Upcoming Encounters Date Type Department Care Team (Late st Contact Info) Description 12/06/2024 10:40 AM CDT Office Visit [facility] - Endocrinology [address] [place] [address], [place] [phone] Marbin Flores MD [address] [facility] DIV OF [place] [address] Niraj Turner MD [address] [place] [address] 2L [place] [address] 2025 1:00 PM ELECTRIC TRUCKER [facility] [address] [place] [address], [place] [phone] Becky Wilson MD [address] [place] [phone] documented as of this encounter Procedures Procedure Name Priority Date/Time Associated Diagnosis Comments IR ANGIOGRAM BILATERAL LEG Routine 11/12/2024 9:06 AM CDT PAD (peripheral artery disease) Amputation of left great toe BASIC METABOLIC PANEL (CALCIUM TOTAL) STAT 11/12/2024 7:11 AM CDT ESRD (end stage renal disease) (HCC) GLUCOSE - POINT OF CARE Routine 11/12/2024 7:05 AM CDT documented in this encounter Results * IR Angiogram Bilateral Leg (11/12/2024 9:06 AM CDT) Anatomical Region Laterality Modality Lower Extremity X-Ray Angiograph y 11/12/2024 9:47 AM CDT Impressions 11/12/2024 3:38 PM CDT IMPRESSION: Left lower extremity angiogram with patent INSTRUMENTATION ENGINEERING TECHNICIAN, SFA with areas of < 50% stenosis, patent TP trunk with occlusions in the peroneal and PT shortly after origin, with single vessel runoff to the foot via the AT with occlusion in the DP in the foot. Right lower extremity angiogram with patent INSTRUMENTATION ENGINEERING TECHNICIAN, SFA, and TP trunk with an occluded AT distally, and occlusion in peroneal at level of ankle, and multifocal areas of stenosis in the PT which appears occluded at the level of the ankle. Successful deployment of 5 Fr Mynx control closure device. Total fluoroscopy time of 4.2min. Total contrast usage of 60mL > Dictated by Elroy Owusu 11/12/2024 9:47 AM > Dictated by Money Examiner I, Elroy Holcomb MD have personally reviewed and interpreted this examination/study. > Interpreting Provider: Elroy Holcomb MD on 11/12/2024 3:38 PM Narrative 11/12/2024 3:38 PM CDT DATE/TIME OF EXAM: 11/12/2024 9:07 AM PRE-PROCEDURE DIAGNOSIS: I73.9: PAD (peripheral artery disease) S98.112A: Amputation of left great toe POST-PROCEDURE DIAGNOSIS: Same PROCEDURE: 1.Ultrasound guided access of the right common femoral artery 2.Second order catheterization and left lower extremity angiogram with runoff 3.Right lower extremity angiogram with runoff 4.Mynx 5 Fr closure device 5.36 minutes of monitored moderate sedation ATTENDING: Erloy Holcomb MD PHOTOENGRAVING MACHINE OPERATOR/TENDER: Griffin Rodriguez MD; Elroy Owusu MD ANESTHESIA: Moderate sedation with midazolam and fentanyl. Local anesthetic with 1% lidocaine. INDICATIONS FOR PROCEDURE: The patient is a 69 year old male with PAD s/p recent LLE 1st toe amputation that is not healing. Recent ABIs diminished bilaterally with toe pressure of 44 on the left and 18 on the right. Angiogram with possible intervention indicated. The procedure, along with the risks, benefits and alternatives were discussed in detail, they were agreeable with the plan and all of their questions were answered. PROCEDURE IN DETAIL: The patient was brought into the angiography suite and placed supine on the table. Vital signs were monitored consistently and the patient was given midazolam and fentanyl for sedation, please see below. The bilateral groins were then prepped and draped in the usual sterile fashion. A timeout was performed verifying the correct patient, procedure and site. Limited ultrasound of the right common femoral artery demonstrated a patent vessel. Lidocaine 1% was injected overlying the vessel. The common femoral artery was appropriate size for access. The right common femoral artery was accessed using a micropuncture needle under ultrasound guidance. The needle entry was documented. Images have been stored. Seldinger technique was used to place a microcatheter sheath. After a series of exchanges this was upsized for a 5 Kazakh sheath. A guidewire and omniflush catheter were then advanced into the abdominal aorta. The wire and catheter were advanced up and over to the left external iliac artery in the usual fashion. The wire was then removed and an angiogram of the left lower extremity was then obtained with runoff to the foot. The wire was then re-inserted and the wire and cathter were then removed together. An angiogram of the right lower extremity with runoff was then obtained through the sheath. A 5 Fr Mynx control closure device was then successfully deployed, and 5 minutes of manual pressure was then held. The groin was hemostatic after the pressure, and soft without signs of hematoma. Patient was then safely transferred to the bed and brought to the post procedure area where the groin remained soft without signs of hematoma. Plan for flat for 2 hours prior to discharge. COMPLICATIONS: none apparent CONTRAST: 60 mL SEDATION: The attending was present for and performed/supervised the entire procedure. Moderate sedation on this adult patient was ordered and administered intravenously in their presence, and monitored by the procedure nurse as an independent trained observer who was present throughout the procedure. The following parameters were monitored: oxygen saturation, heart rate, blood pressure, and response to care. The patient was given a total of 2 mg of midazolam and 100 micrograms of fentanyl with a start time of 0817 hrs and an end time of 0853 hrs for a total of 36 minutes. Vital signs were observed and noted to be within normal limits throughout the entirety of sedation as well as postprocedure in the recovery area until discharge. For details on pre-moderate sedation and post-moderate sedation patient evaluation, please review the evaluation forms in [facility]. For details on monitored clinical parameters during the intra-service sedation time, please review the procedure nurse documentation in [facility]. Procedure Note Elroy Holcomb MD - 11/12/2024 DATE/TIME OF EXAM: 11/12/2024 9:07 AM PRE-PROCEDURE DIAGNOSIS: I73.9: PAD (peripheral artery disease) S98.112A: Amputation of left great toe POST-PROCEDURE DIAGNOSIS: Same PROCEDURE: 1.Ultrasound guided access of the right common femoral artery 2.Second order catheterization and left lower extremity angiogram with runoff 3.Right lower extremity angiogram with runoff 4.Mynx 5 Fr closure device 5.36 minutes of monitored moderate sedation ATTENDING: Elroy Holcomb MD PHOTOENGRAVING MACHINE OPERATOR/TENDER: Griffin Rodriguez MD; Elroy Owusu MD ANESTHESIA: Moderate sedation with midazolam and fentanyl. Localanesthetic with 1% lidocaine. INDICATIONS FOR PROCEDURE: The patient is a 69 year old male with PAD s/p recent LLE 1st toe amputation that is not healing. Recent ABIs diminished bilaterally withtoe pressure of 44 on the left and 18 on the right. Angiogram with possible intervention indicated. The procedure, along with the risks, benefitsand alternatives were discussed in detail, they were agreeable with the plan and all of their questions were answered. PROCEDURE IN DETAIL: The patient was brought into the angiography suite and placed supine onthe table. Vital signs were monitored consistently and the patient was given midazolam and fentanyl for sedation, please see below. The bilateralgroins were then prepped and draped in the usual sterile fashion. A timeout was performed verifying the correct patient, procedure and site. Limited ultrasound of the right common femoral artery demonstrated apatent vessel. Lidocaine 1% was injected overlying the vessel. The commonfemoral artery was appropriate size for access. The right common femoral arterywas accessed using a micropuncture needle under ultrasound guidance. Theneedle entry was documented. Images have been stored. Seldinger technique was used to place a microcatheter sheath. After a series of exchanges thiswas upsized for a 5 Kazakh sheath. A guidewire and omniflush catheter werethen advanced into the abdominal aorta. The wire and catheter were advancedup and over to the left external iliac artery in the usual fashion. Thewire was then removed and an angiogram of the left lower extremity was then obtained with runoff to the foot. The wire was then re-inserted and the wire and cathter were then removed together. An angiogram of the right lower extremity with runoff was then obtained through the sheath. A 5 Fr Mynx control closure device was then successfully deployed, and 5minutes of manual pressure was then held. The groin was hemostatic after the pressure, and soft without signs of hematoma. Patient was then safely transferred to the bed and brought to the post procedure area where the groin remained soft without signs of hematoma. Plan for flat for 2 hours prior to discharge. COMPLICATIONS: none apparent CONTRAST: 60 mL SEDATION: The attending was present for and performed/supervised the entire procedure. Moderate sedation on this adult patient was ordered and administered intravenously in their presence, and monitored by the procedure nurse as an independent trained observer who was present throughout the procedure. The following parameters were monitored:oxygen saturation, heart rate, blood pressure, and response to care. Thepatient was given a total of 2 mg of midazolam and 100 micrograms of fentanylwith a start time of 0817 hrs and an end time of 0853 hrs for a total of 36 minutes. Vital signs were observed and noted to be within normal limits throughout the entirety of sedation as well as postprocedure in the recovery area until discharge. For details on pre-moderate sedation and post-moderate sedation patient evaluation, please review the evaluation forms in [facility]. For details on monitored clinical parameters during the intra-service sedation time, please review the procedure nurse documentation in [facility]. IMPRESSION: Left lower extremity angiogram with patent INSTRUMENTATION ENGINEERING TECHNICIAN, SFA with areas of < 50% stenosis, patent TP trunk with occlusions in the peroneal and PT shortly after origin, with single vessel runoff to the foot via the AT with occlusion in the DP in the foot. Right lower extremity angiogram with patent INSTRUMENTATION ENGINEERING TECHNICIAN, SFA, and TP trunk with an occluded AT distally, andocclusion in peroneal at level of ankle, and multifocal areas of stenosis in thePT which appears occluded at the level of the ankle. Successful deploymentof 5 Fr Mynx control closure device. Total fluoroscopy time of 4.2min. Total contrast usage of 60mL > Dictated by Elroy Owusu 11/12/2024 9:47 AM > Dictated by Money Examiner I, Elroy Holcomb MD have personally reviewed and interpreted this examination/study. > Interpreting Provider: Elroy Holcomb MD on 11/12/2024 3:38 PM us Elroy Holcomb MD IR ORDERABLES Final Resu lt * (ABNORMAL) BASIC METABOLIC PANEL (CALCIUM TOTAL) (11/12/2024 7:11 AM CDT) BUN 28(H) 7 - 26 mg/dL 11/12/2024 7:59 AM [facility] Creatinine 7.33(H) 0.71 - 1.16 mg/dL 11/12/2024 7:59 AM [facility] Sodium 138 136 - 145 mmol/L 11/12/2024 7:59 AM [facility] Potassium 3.5 3.5 - 4.5 mmol/L 11/12/2024 7:59 AM [facility] Chloride 97(L) 98 - 107 mmol/L 11/12/2024 7:59 AM [facility] CO2 25 22 - 29 mmol/L 11/12/2024 7:59 AM [facility] Glucose 164(H) 70 - 99 mg/dL 11/12/2024 7:59 AM [facility] Calcium 7.8(L) 8.4 - 10.2 mg/dL 11/12/2024 7:59 AM [facility] Anion Gap 16 6 - 16 11/12/2024 7:59 AM [facility] BUN/Creatinine Ratio 4(L) 7 - 23 11/12/2024 7:59 AM [facility] Osmolality Calculated 295 275 - 295 mOsm/kg 11/12/2024 7:59 AM [facility] eGFR by CKD-EPI 8(L) >=90 mL/min/1.7 3 m2 11/12/2024 7:59 AM [facility] Comment:Estimated Glomerular Filtration Rate (eGFR) calculated using the CKD-EPI Creatinine Equation (2020), per the National Kidney Foundation and [place] Society of Nephrology recommendations. Blood BLOOD SPECIMEN / Unknown Lab Venipuncture / Unknown 11/12/2024 7:11 AM CDT 11/12/2024 7:44 AM CDT Elroy Holcomb MD LAB - CHEMISTRY ORDERABLES Final Result [facility] [address] [place] [address], [facility] [phone] * (ABNORMAL) GLUCOSE - POINT OF CARE (11/12/2024 7:05 AM CDT) Glucose WB/POC 193(H) 70 - 99 mg/dL 11/12/2024 7:06 AM CDT [facility] Specimen Type Venous 11/12/2024 7:06 AM CDT [facility] Blood BLOOD SPECIMEN / Unknown 11/12/2024 7:05 AM CDT 11/12/2024 7:06 AM CDT Elroy Holcomb MD LAB - POINT OF CARE ORDERA BLES Final Result [facility] [address] [place] [address], [facility] [phone] documented in this encounter Visit Diagnoses Diagnosis ESRD on PD- Primary End stage renal disease ESRD (end stage renal disease) (HCC) End stage renal disease PAD (peripheral artery disease) Unspecified disorders of arteries and arterioles Amputation of left great toe documented in this encounter Administered Medications Inactive Administered Medications - up to 3 most recent administrations Medication Order MAR Action Action Date Dose Rate Site acetaminophen (Tylenol) tablet 650 mg 650 mg, Oral, ONCE PRN, Mild Pain, Moderate Pain, Severe Pain, 1 dose, Starting on Fri11/12/24 at 0925, Until Fri11/12/24 at 1110, Patient preference for lesser PRN pain meds may be honored when the patient requests a less strong medication, a lower dose, or a less intrusive route of administration when the lesser drug, dose and route have been ordered for the patient. This patient request must be documented in the MAR. If both oral and IV options are ordered for the same pain severity, give oral first unless patient cannot tolerate oral intake. $ Given 11/12/2024 11:10 AM CDT 650 mg fentaNYL (PF) (Sublimaze) injection ONCE PRN, Starting on Fri11/12/24 at 0817, Until Fri11/12/24 at 0823, Intra-op $ Given 11/12/2024 8:23 AM CDT 50 mcg $ Given 11/12/2024 8:17 AM CDT 50 mcg heparinized saline 2 units/mL infusion Other, CONTINUOUS PRN, Starting on Fri11/12/24 at 0815, Until Fri11/12/24 at 0815, Intra-op $ New Bag/Syringe 11/12/2024 8:15 AM CDT 500 mL HYDROcodone-acetaminophen (Clay) 5-325 MG tablet 1 tablet 1 tablet, Oral, ONCE PRN, Moderate Pain, 1 dose, Starting on Fri11/12/24 at 1140, Until Fri11/12/24 at 1147, Patient preference for lesser PRN pain meds may be honored when the patient requests a less strong medication, a lower dose, or a less intrusive route of administration when the lesser drug, dose and route have been ordered for the patient. This patient request must be documented in the MAR. If both oral and IV options are ordered for the same pain severity, give oral first unless patient cannot tolerate oral intake. $ Given 11/12/2024 11:47 AM CDT 1 tablet iopamidol (Isovue 300) 61 % contrast ONCE PRN, Starting on Fri11/12/24 at 0854, Until Fri11/12/24 at 0854, Intra-op $ Given 11/12/2024 8:54 AM CDT 60 mL lactated ringers infusion at 20 mL/hr, Intravenous, PRE-OP CONTINUOUS, Starting on Fri11/12/24 at 0715, Until Fri11/12/24 at 1340, Pre-op lidocaine (Xylocaine) 1 % injection Subcutaneous, ONCE PRN, Starting on Fri11/12/24 at 0818, Until Fri11/12/24 at 0818, Intra-op $ Given 11/12/2024 8:18 AM CDT 10 mL Right Groin midazolam (Versed) injection Intravenous, ONCE PRN, Starting on Fri11/12/24 at 0817, Until Fri11/12/24 at 0823, Intra-op $ Given 11/12/2024 8:23 AM CDT 1 mg $ Given 11/12/2024 8:17 AM CDT 1 mg documented in this encounter Active and Recently Administered Medications Times are shown in CDT. Continuous Medication Order 11/10/2024 11/11/2024 11/12/2024 lactated ringers infusion at 20 mL/hr, Intravenous, PRE-OP CONTINUOUS, Starting on Fri11/12/24 at 0715, Until Fri11/12/24 at 1340, Pre-op 0932 (Not Administer ed - Provider: Yael Red RN - Reason: Other - Comment: Pt is a dialysis pt not started in pre op) PRN Medication Order 11/10/2024 11/11/2024 11/12/2024 acetaminophen (Tylenol) tablet 650 mg (COMPLETED) 650 mg, Oral, ONCE PRN, Mild Pain, Moderate Pain, Severe Pain, 1 dose, Starting on Fri11/12/24 at 0925, Until Fri11/12/24 at 1110, Patient preference for lesser PRN pain meds may be honored when the patient requests a less strong medication, a lower dose, or a less intrusive route of administration when the lesser drug, dose and route have been ordered for the patient. This patient request must be documented in the MAR. If both oral and IV options are ordered for the same pain severity, give oral first unless patient cannot tolerate oral intake. 1110 ($ Given - Prov ider: Yael Red RN) fentaNYL (PF) (Sublimaze) injection (COMPLETED) ONCE PRN, Starting on Fri11/12/24 at 0817, Until Fri11/12/24 at 0823, Intra-op 0817 ($ Given - Prov ider: Enma Reid RN)0823 ($ Given - Provider: Enma Reid RN) heparinized saline 2 units/mL infusion (COMPLETED) Other, CONTINUOUS PRN, Starting on Fri11/12/24 at 0815, Until Fri11/12/24 at 0815, Intra-op 0815 ($ New Bag/Syri nge - Provider: Elroy Holcomb MD - Comment: table fluids) HYDROcodone-acetaminophen (Clay) 5-325 MG tablet 1 tablet (COMPLETED) 1 tablet, Oral, ONCE PRN, Moderate Pain, 1 dose, Starting on Fri11/12/24 at 1140, Until Fri11/12/24 at 1147, Patient preference for lesser PRN pain meds may be honored when the patient requests a less strong medication, a lower dose, or a less intrusive route of administration when the lesser drug, dose and route have been ordered for the patient. This patient request must be documented in the MAR. If both oral and IV options are ordered for the same pain severity, give oral first unless patient cannot tolerate oral intake. 1147 ($ Given - Prov ider: Yael Red RN) iopamidol (Isovue 300) 61 % contrast (COMPLETED) ONCE PRN, Starting on Fri11/12/24 at 0854, Until Fri11/12/24 at 0854, Intra-op 0854 ($ Given - Prov ider: Elroy Holcomb MD) lidocaine (Xylocaine) 1 % injection (COMPLETED) Subcutaneous, ONCE PRN, Starting on Fri11/12/24 at 0818, Until Fri11/12/24 at 0818, Intra-op 0818 ($ Given - Prov ider: Elroy Holcomb MD) midazolam (Versed) injection (COMPLETED) Intravenous, ONCE PRN, Starting on Fri11/12/24 at 0817, Until Fri11/12/24 at 0823, Intra-op 0817 ($ Given - Prov ider: Enma Reid RN)0823 ($ Given - Provider: Enma Reid RN) documented in this encounter Care Teams Last Picker Relationship Specialty Start Date End Date Jeff Strickland MD [address] [place] [address] PCP - General 03/05/18 [place] [address] [facility] [address] [place] [address] [id number] Orthopedic Surgery 03/28/17 documented as of this encounter
--- OUTSIDE RECORDS SUMMARY | 2024-11-12 05:48 | XMS_ITS | Encounter Summary ---
Author Organization [facility] Address [address] [place] [address] Care Team Providers Care Real Estate Subagent Name Role Phone Deandre Bojorquez MD Unavailable [phone] Jeff Strickland MD Primary Care Provider [phone] Reason for Visit * Radiology Services (Routine) - Open Specialty Diagnoses / Procedures Referred By Contac t Referred To Contact Interventional Radiology Diagnoses PAD (peripheral artery disease) Amputation of left great toe Procedures IR Angiogram Bilateral Leg IR Angiogram Left Leg Elroy Holcomb MD [facility] 2L [place] [address] Phone: tel: fax: [facility] IV[facility] [address] [place] [address] Phone: tel: fax: Referral ID Status Reason Start Date Expiration Date Visits Re quested Visits Authorized [id number] Open 11/02/2024 11/02/2025 1 1 Encounter Details Date Type Department Care Team (Latest Contact Info) Description 11/12/2024 5:48 AM CDT - 11/12/2024 12:40 PM CDT Hospital Encounter [facility] RITO OP [address] [place] [phone] Elroy Holcomb MD [address] [place] [address] [address] [place] [address] [facility] Discharge Disposition: Home or Self [...] Recorded Patient Health Questionnaire-2 Score 6 10/05/2024 [facility] - [...] any time in the past 12 m [facility], were you homeless or living in a senior living (including now)? No 09/24/2024 Sex and Gender Information Value Date Recorded Sex Assigned at Male 07/02/2021 2:37 PM CDT Legal Sex Male 10:14 PM RAG CUTTING MACHINE FEEDER Gender Identity Male 07/02/2021 [...] as need for discomfort. Call us at [phone]: For severe pain, swelling, redness, warmth, or drainage at the puncture site. A lump near the puncture site that increases in size Constant bleeding at the puncture site; if this occurs, hold pressure. For continual, heavy bleeding, hold pressure and call [phone] Pain, numbness, tingling, weakness, difficulty moving, or change in color or temperature of an extremity Follow Up: Based on the pictures taken today, Dr Holcomb plans for a procedure on the right leg to improve the blood flow in the next week or two, the fiberglass bonding machine tender will reach out to you. If you do not hear from them in the next few days, please call the office number below. If you have any questions or concerns call the Vascular Surgery Office at [phone]. The office is open Friday-Friday from 8:00AM-4:00PM. After 4:00PM there is the on-call resident available for patients to call with any urgent questionsor concerns. Call the [facility] main phone number at [phone] and ask for the Vascular Surgery Resident consumer safety inspector. To make, change, or cancel an appointment call [phone]. documented in this encounter Medications at Time of Discharge Aspirin Low Dose 81 MG tabletIndications: CAD in [place] artery TAKE 1 TABLET BY MOUTH ONCE DAILY 90 tablet 3 5 atorvastatin (Lipitor) 80 MG tabletIndications: Coronary artery disease involving [place] coronary artery of [place] heart without angina pectoris Take 1 (one) tablet by mouth once daily 90 tablet 3 4 B Rzdpqdr-P-Xymef Acid (Dialyvite 800) 0.8 MG 1 tablet [...] (one) capsule by mouth 5 HYDROcodone-acetam inophen (Tacoma) 5-325 MG tablet Take 1 (one) tablet [...] 20 MG tabletIndications: Coronary artery disease involving [place] coronary artery of [place] heart without angina pectoris,Resistant hypertension Take 1 [...] Dr Strickland manages. CHF (congestive heart failure) ([facility]) 2 yrs ago Offset Plate Maker is Dr. Becerra in [place]. CKD (chronic kidney disease), stage V (HCC) Community acquired pneumonia 2018 [facility] hospitalized. Diabetes mellitus (HCC) 20 years. Lanron lee. Interactive Marketing Strategist Dr. Davis at [place]. 03/26/21 last seen. Esophageal reflux takes med [...] on CPAP Renal cell carcinoma (HCC) [address] [place] Pruett surgeon. followed up every 6 [...] mouth once daily 90 tablet 3 B Kjvngla-L-Wutcl Acid (Dialyvite 800) 0.8 MG 1 tablet [...] Take 1 (one) capsule by mouth HYDROcodone-acetaminophen (Tacoma) 5-325 MG tablet Take 1 (one) tablet [...] results for input(s): TACROLIMUS in the last [id number] hours. Imaging No results found. Assessment : [...] Post-Op Diagnosis: Same Surgeon: Elroy Holcomb MD Salt Manager(s): Griffin Rodriguez MD; Elroy Owusu MD Anesthesia Type:Moderate sedation 2mg Versed, 100 mcg Fentanyl Complications: none apparent Findings: Left lower extremity angiogram with patent SENIOR PREMIUM AUDITOR, SFA with areas of < 50% stenosis, patent TP trunk with occlusions in the peroneal and PT shortly after origin, with single vessel runoff to the foot via the AT with occlusion in the DP in the foot. Right lower extremity angiogram with patent SENIOR PREMIUM AUDITOR, SFA, and TP trunk with an occluded [...] Office Visit [facility] - Endocrinology [address] [place] [address], [place] [phone] Marbin Flores MD [address] [facility] DIV OF [place] [address] Niraj Turner MD [address] [place] [address] 2L [place] [address] 2025 1:00 PM RAG CUTTING MACHINE FEEDER [facility] [address] [place] [address], [place] [phone] Becky Wilson MD [address] [place] [phone] documented as of this encounter Procedures Procedure [...] IMPRESSION: Left lower extremity angiogram with patent SENIOR PREMIUM AUDITOR, SFA with areas of < 50% stenosis, patent TP trunk with occlusions in the peroneal and PT shortly after origin, with single vessel runoff to the foot via the AT with occlusion in the DP in the foot. Right lower extremity angiogram with patent SENIOR PREMIUM AUDITOR, SFA, and TP trunk with an occluded [...] Owusu 11/12/2024 9:47 AM > Dictated by Stainless Steel Finisher I, Elroy Holcomb MD have personally reviewed [...] monitored moderate sedation ATTENDING: Elroy Holcomb MD CAMPUS RECRUITING COORDINATOR: Griffin Rodriguez MD; Elroy Owusu MD ANESTHESIA: [...] exchanges this was upsized for a 5 [place]ik sheath. A guidewire and omniflush catheter were [...] evaluation, please review the evaluation forms in [facility]. For details on monitored clinical parameters during the intra-service sedation time, please review the procedure nurse documentation in [facility]. Procedure Note Elroy Holcomb MD - [...] monitored moderate sedation ATTENDING: Elroy Holcomb MD CAMPUS RECRUITING COORDINATOR: Griffin Rodriguez MD; Elroy Owusu MD ANESTHESIA: [...] of exchanges thiswas upsized for a 5 Tajik sheath. A guidewire and omniflush catheter werethen [...] evaluation, please review the evaluation forms in [facility]. For details on monitored clinical parameters during the intra-service sedation time, please review the procedure nurse documentation in [facility]. IMPRESSION: Left lower extremity angiogram with patent SENIOR PREMIUM AUDITOR, SFA with areas of < 50% stenosis, patent TP trunk with occlusions in the peroneal and PT shortly after origin, with single vessel runoff to the foot via the AT with occlusion in the DP in the foot. Right lower extremity angiogram with patent SENIOR PREMIUM AUDITOR, SFA, and TP trunk with an occluded AT distally, andocclusion in peroneal at level of ankle, and multifocal areas of stenosis in thePT which appears occluded at the level of the ankle. Successful deploymentof 5 Fr Mynx control closure device. Total fluoroscopy time of 4.2min. Total contrast usage of 60mL > Dictated by Elroy Owusu 11/12/2024 9:47 AM > Dictated by Stainless Steel Finisher I, Elroy Holcomb MD have personally reviewed and interpreted this examination/study. > Interpreting Provider: Elroy Holcomb MD on 11/12/2024 3:38 PM us Elroy Holcomb MD IR ORDERABLES Final Resu lt * (ABNORMAL) BASIC METABOLIC PANEL (CALCIUM TOTAL) (11/12/2024 7:11 AM CDT) BUN 28(H) 7 - 26 mg/dL 11/12/2024 7:59 AM [facility] Creatinine 7.33(H) 0.71 - 1.16 mg/dL 11/12/2024 7:59 AM [facility] Sodium 138 136 - 145 mmol/L 11/12/2024 7:59 AM [facility] Potassium 3.5 3.5 - 4.5 mmol/L 11/12/2024 7:59 AM [facility] Chloride 97(L) 98 - 107 mmol/L 11/12/2024 7:59 AM [facility] CO2 25 22 - 29 mmol/L 11/12/2024 7:59 AM [facility] Glucose 164(H) 70 - 99 mg/dL 11/12/2024 7:59 AM [facility] Calcium 7.8(L) 8.4 - 10.2 mg/dL 11/12/2024 7:59 AM [facility] Anion Gap 16 6 - 16 11/12/2024 7:59 AM [facility] BUN/Creatinine Ratio 4(L) 7 - 23 11/12/2024 7:59 AM [facility] Osmolality Calculated 295 275 - 295 mOsm/kg 11/12/2024 7:59 AM [facility] eGFR by CKD-EPI 8(L) >=90 mL/min/1.7 3 m2 11/12/2024 7:59 AM [facility] Comment:Estimated Glomerular Filtration Rate (eGFR) calculated using the CKD-EPI Creatinine Equation (2020), per the National Kidney Foundation and [place] Society of Nephrology recommendations. Blood BLOOD SPECIMEN / Unknown Lab Venipuncture / Unknown 11/12/2024 7:11 AM CDT 11/12/2024 7:44 AM CDT Elroy Holcomb MD LAB - CHEMISTRY ORDERABLES Final Result [facility] [address] [place] [address], [facility] [phone] * (ABNORMAL) GLUCOSE - POINT OF CARE (11/12/2024 7:05 AM CDT) Glucose WB/POC 193(H) 70 - 99 mg/dL 11/12/2024 7:06 AM CDT [facility] Specimen Type Venous 11/12/2024 7:06 AM CDT [facility] Blood BLOOD SPECIMEN / Unknown 11/12/2024 7:05 AM CDT 11/12/2024 7:06 AM CDT Elroy Holcomb MD LAB - POINT OF CARE ORDERA BLES Final Result [facility] [address] [place] [address], [facility] [phone] documented in this encounter Visit Diagnoses Diagnosis [...] 11/12/2024 8:15 AM CDT 500 mL HYDROcodone-acetaminophen (Tacoma) 5-325 MG tablet 1 tablet 1 tablet, [...] Holcomb MD - Comment: table fluids) HYDROcodone-acetaminophen (Tacoma) 5-325 MG tablet 1 tablet (COMPLETED) 1 [...] RN) documented in this encounter Care Teams Real Estate Subagent Relationship Specialty Start Date End Date Jeff Strickland MD [address] [place] [address] PCP - General 03/05/18 [place] [address] [facility] [address] [place] [address] [id number] Orthopedic Surgery 03/28/17 documented as of this encounter
[2024-11-13] VITALS (12 sets, daily range): BP systolic 122–163; BP diastolic 56–79; PULSE 62–71; RESP 6–20; TEMP 36.6–37.1; O2SAT 98–100
--- OUTSIDE RECORDS SUMMARY | 2024-11-13 20:02 | XMS_ITS | Clinical Summary ---
Author Organization [facility] Address [address] [place] [address] Care Team Providers Care Laborer Marine Terminal Name Role Phone Jeff Strickland MD Primary [...] mouth daily. Active nystatin-triamc inolone (MYCOLOG II) 342297-5.1 UNIT/GM-% Cream 5 Active ondansetron (ZOFRAN-ODT) 4 [...] 10/29/2024 Telephone [facility] - Cardiology [facility] [address] [place] [address] Suly Smith APRN, STRATEGIC ALLIANCES MANAGER 10/15/2024 Telephone [facility] Cardiology [facility] [address] [place] [address] Hannah Goodman MD 10/14/2024 2:40 PM CDT Clinical Support [facility] Cardiology [facility] [address] [facility] [phone] NurseAsim Cardiology Dressing change (Primary Dx) Discharge [...] Care Team (Late st Contact Info) Description 04/11/2025 11:30 AM STARS ANALYTICAL LEAD Office Visit [facility] - Cardiology - [place] [address] [place] [address] He Maylin, DO 2 [facility] [place] [address] [address] Health Maintenance Due Date Last Done Comments Cologuard 01/19/2001 Colonoscopy 01/19/2001 Colorectal Cancer Screening 01/19/2001 Immunochemical Fecal Occult Blood 01/19/2001 Pneumococcal Immunization (50+ years) (1 of 1 - PCV) 01/19/2006 08/09/2020, 02/09/2020 PSA Discussion 01/19/2011 Respiratory Syncytial Virus (RSV) Immunization (Adult) (1 - Risk 60-74 years 1-dose series) 2016 Medicare Initial AWV [id number] 02/18/2024 Influenza Immunization (#1) 10/18/202411/18, 05/03/2023, 10/29/2020, Additional history exists SARS-COV-2 Immunization (2023- season) 2024 12/13/2023, 05/05/2020, 04/15/2020, Additional history [...] topic Insurance MEDICARE C [employer]ET[employer] Care Teams Laborer Marine Terminal Relationship Specialty Start Date End Date Jeff Strickland MD [address] [place] [address] PCP - General Family Medicine 10/14/24
--- OUTSIDE RECORDS SUMMARY | 2024-11-13 20:02 | XMS_ITS | Encounter Summary ---
Author Organization [facility] Address [address] [place] [address] Care Team Providers Care Demonstrator Electric Gas Appliances Name Role Phone Deandre Bojorquez MD Unavailable [phone] Jeff Strickland MD Primary Care Provider [phone] Encounter Details Date Type Department Care Team (Late st Contact Info) Description 10/28/2023 Lab Requisition [facility] MAIN LAB [address] [place] [phone] Alan Davenport MD [facility] [place] [address] Social History Tobacco Use Types Packs/Day Years Used Date Smoking Tobacco: Never Smokeless Tobacco: Never Alcohol Use Standard Drinks/Week Comments Not Currently 0 (1 standard drink = 0.6 oz pur e alcohol) socially in past Sex and Gender Information Value Date Recorded Sex Assigned at Male 07/02/2021 2:37 PM CDT 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 Gender Identity Male 07/02/2021 2:37 [...] Office Visit [facility] - Endocrinology [address] [place] [address], [place] [address] Marbin Flores MD [address] [facility] DIV OF [place] [address] Niraj Turner MD [address] [place] [address] 2L Div [place] [address] 2025 1:00 PM FLOW MACHINE OPERATOR Office [facility] [address] [place] [address], [place] [address] Becky Wilson MD [address] [place] [phone] documented as of this encounter Procedures Procedure Name Priority Date/Time Associated Diagnosis Comments HOLD HLA SPECIMEN Routine 10/22/2023 3:5 0 PM CDT documented in this encounter Results * HOLD HLA SPECIMEN (10/22/2023 3:50 PM CDT) Hold HLA Specimen 10/28/2023 5:00 PM CDT [facility] ([facility]) Comment:The Hold HLA specime n has been received into the lab and will be held for 5 years at 4 degrees. Blood BLOOD SPECIMEN / Unknown 10/22/2023 3:50 PM CDT 10/28/2023 3:50 PM CDT us Alan Davenport MD LAB - BLOOD BANK ORDERABLES F inal Result [facility] ([facility]) [address] documented in this encounter Visit Diagnoses Not on filedocumented in this encounter Additional Health Concerns Infection Onset Date Last Indicated Resolved Time COVID-19 Under Investigation 09/13/2024 09/13/2024 09/13/2024 6:36 AM CDT documented as of this encounter Care Teams Demonstrator Electric Gas Appliances Relationship Specialty Start Date End Date Jeff Strickland MD [address] [place] [address] PCP - General 03/05/18 [place] [address] [address] Orthopedic Surgery 03/28/17 documented as of this encounter
--- OUTSIDE RECORDS SUMMARY | 2024-11-13 20:02 | XMS_ITS | Patient Health Record ---
Author Organization [facility] Address [address] [place] [address] [place] [address] Care Team Providers Care Rn Outpatient Surgery Name Role Phone DONNIE WOOD MD Primary Care Provider Unavaila julien Sergio Rivera Unavailable [phone] ALLERGIES No Known Allergies REASON FOR REFERRAL [...] retired. 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 He denies tobacco, alcohol, or illicit drug abuse The patient is retired. 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 He denies tobacco, alcohol, or illicit drug abuse The patient is retired. 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 He denies tobacco, alcohol, or illicit drug abuse The patient is retired. 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 He denies tobacco, alcohol, or illicit drug abuse The patient is retired. 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 He denies tobacco, alcohol, or illicit drug abuse The patient is retired. 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 He denies tobacco, alcohol, or illicit drug abuse The patient is retired. 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 He denies tobacco, alcohol, or illicit drug abuse The patient is retired. 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 He denies tobacco, alcohol, or illicit drug abuse The patient is retired. 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 He denies tobacco, alcohol, or illicit drug abuse The patient is retired. 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 He denies tobacco, alcohol, or illicit drug abuse The patient is retired. 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 He denies tobacco, alcohol, or illicit drug abuse The patient is retired. 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 He denies tobacco, alcohol, or illicit drug abuse The patient is retired. 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) Active confirmed Localized, primary osteoarthritis of the shoulder region (324197719) Problem Pain in left hip (M25.552) Active confirmed Pain of left hi p joint (finding) (703863128377949) Problem Spondylosis without myelopathy or radiculopathy, lumbar region (M47.816) Active confirmed Lumbosacral spondylosis without myelopathy (45078240) Problem Other intervertebral disc degeneration, lumbar region (M51.36) Active confirmed Degeneration of lumbar intervertebral disc (67450501) Problem Radiculopathy, lumbar region (M54.16) Active confirmed Lumbar radiculopathy (186769247) Problem Radiculopathy, lumbosacral region (M54.17) Active confirmed Lumbosacral radiculopathy (3935526) Problem Osseous stenosis of neural canal of lumbar region (M99.33) Active confirmed Spinal stenosis of lumbar region (47425631) Problem retirement (current) use of anticoagulants (Z79.01) Active confirmed Long-term curre nt use of anticoagulant (025606698) Problem Other intervertebral disc degeneration, lumbar region [...] Location Date Provider Diagnosis [facility] [address] [place] [phone] 01/12/2024 Sergio Stynowick Radiculopathy, lumba r region M54.16 ; Radiculopathy, lumbosacral region M54.17 ; Other chest pain R07.89 ; Other intervertebral disc degeneration, lumbar region M51.36 ; 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 ; Spondylosis without myelopathy or radiculopathy, lumbar region M47.816 and retirement (current) use of anticoagulants Z79.01 [facility] [address] [place] [phone] 01/19/2024 Sergio Stynowick Radiculopathy, lumba r region M54.16 ; Other intervertebral disc degeneration, lumbar region with discogenic back pain and lower extremity pain M51.362 and 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 [facility] [address] [place] [phone] 02/03/2024 Sergio Stynowick Other chest pain R07.89 ; Pain in left knee M25.562 ; Radiculopathy, lumbar region M54.16 ; Other intervertebral disc degeneration, lumbar region M51.36 ; 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 ; Spondylosis without myelopathy or radiculopathy, lumbar region M47.816 and retirement (current) use of anticoagulants Z79.01 [facility] [address] [place] [address] 03/03/2024 Sergio Stynowick Pain in left knee M25.562 ; Primary osteoarthritis, unspecified shoulder M19.019 ; Other chest pain R07.89 ; Radiculopathy, lumbar region M54.16 ; Other intervertebral disc degeneration, lumbar region M51.36 ; 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 ; Spondylosis without myelopathy or radiculopathy, lumbar region M47.816 ; manager long term care (current) use of anticoagulants Z79.01 ; Pain in right shoulder M25.511 and Pain in left shoulder M25.512 [facility] [address] [place] [address] 03/08/2024 Sergio Stynowick Primary osteoarthritis, unspecified shoulder M19.019 [facility] [address] [place] [phone] 03/31/2024 Sergio Schmitzick ASSESSMENTS Encounter Date Diagnosis [...] of lumbar region (ICD-10 - M99.33) 01/12/2024 manager long term care (current) use of anticoagulants (ICD-10 - Z79.01) The patient was instructed to discontinue aspirin for 6 days prior to the procedure. I made the patient aware that he will be at an increased risk for a thromboembolic event during this time and he is willing to accept this risk. The patient was instructed to notify his primary care physician and/or sr. director product management to obtain clearance prior to discontinuing this medication. 02/03/2024 retirement (current) use of anticoagulants (ICD-10 - [...] patient was evaluated in conjunction with Dr. Rivear. I have discussed and reviewed all of [...] Coverage End Date [employer] MEDICARE [address] [place] [address] [id number] GRACE INTERIANO Self - patient is the insured MEDICAL (GENERAL) HISTORY Medical History History ICD Code Hypertension Hypothyroidism Diabetes type 2 Gastroesophageal reflux disease (GERD) Renal cell cancer Chronic kidney disease stage 4 Sleep apnea CHF Surgical History Surgery Date(Month/Year) Right total knee arthroplasty 08/2015 Cholecystectomy Hernia repair 2019 Cardiac stent 07/2020
--- OUTSIDE RECORDS SUMMARY | 2024-11-13 20:02 | XMS_ITS | Encounter Summary ---
Author Organization [facility] Healthcare Address [address] [place] [address] Care Team Providers Care Hardwood Finisher Name Role Phone Jeff Strickland MD Primary Care Provider Chan Nicholas MD Unavailable [phone] Alan Mccall MD Unavailable [phone] Pepito Haro MD PhD Unavailable Solange Guido MD Unavailable [phone] Encounter Details Date Type Department Care Team (Late st Contact Info) Description 07/28/2024 Orders Only [facility] Information Management [address] [place] [address] Scanning, Provider Social History Tobacco Use Types Packs/Day Years Used Date Smoking Tobacco: Never Smokeless Tobacco: Never Alcohol Use Standard Drinks/Week Comments Yes 0 (1 standard drink = 0.6 oz pur e alcohol) rarely [facility] Utilities Answer Date Recorded In the past 12 months has [employer] electric, gas, oil, or water company threatened [...] place to sleep or slept in a mcfp (including now)? 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 Gender Identity Not on file Sexual Orientation [...] on filedocumented in this encounter Care Teams Hardwood Finisher Relationship Specialty Start Date End Date Jeff Strickland MD [facility] [address] [place] [id number] PCP - General Family Medicine 04/02/18 Chan Nicholas MD [facility] [address] [address] Consulting Physician Gastroenterology 11/24/18 Alan Mccall MD [facility] [address] [address] Referring Physician Nephrology 11/24/18 Pepito Haro MD PhD [address] [place] [address] Consulting Physician Neurosurgery 12/03/22 Solange Guido MD [address] [facility] [address] [place] [address] Referring Physician Cardiovascular Disease 07/23/23 documented as of this encounter
--- OUTSIDE RECORDS SUMMARY | 2024-11-13 20:02 | XMS_ITS | Encounter Summary ---
Author Organization [facility] Address [address] [place] [address] Care Team Providers Care Roof Cement And Paint Maker Helper Name Role Phone Deandre Bojorquez MD Unavailable Jeff Strickland MD Primary Care Provider [phone] Encounter Details Date Type Department Care Team (Late st Contact Info) Description 06/25/2024 Lab Requisition [facility] MAIN LAB [address] [place] [phone] Alan Davenport MD [facility]1 [facility] [place] [address] Social History Tobacco Use Types Packs/Day Years Used Date Smoking Tobacco: Never Smokeless Tobacco: Never Alcohol Use Standard Drinks/Week Comments Not Currently 0 (1 standard drink = 0.6 oz pur e alcohol) socially in past Sex and Gender Information Value Date Recorded Sex Assigned at Male 07/02/2021 2:37 PM CDT 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 Gender Identity Male 07/02/2021 2:37 PM CDT [...] Visit [facility] - Endocrinology [address] [place] [address], [place] [address] Marbin Flores MD [address] [facility] DIV [place] [address] Niraj Turner MD [address] [place] [address] 2L Div [place] [address] 2025 1:00 PM SAVINGS COUNSELOR [facility] [address] [place] [address], [place] [address] Becky Wilson MD [address] [place] [phone] documented as of this encounter Procedures Procedure Name Priority Date/Time Associated Diagnosis Comments HOLD HLA SPECIMEN Routine 06/22/2024 11: 05 AM CDT documented in this encounter Results * HOLD HLA SPECIMEN (06/22/2024 11:05 AM CDT) Hold HLA Specimen 06/25/2024 12:32 PM CDT [facility] ([facility]) Comment:The Hold HLA specime n has been received into the lab and will be held for 5 years at 4 degrees. Blood BLOOD SPECIMEN / Unknown 06/22/2024 11:05 AM CDT 06/25/2024 11:05 AM CDT us Alan Davenport MD LAB - BLOOD BANK ORDERABLES F inal Result [facility] ([facility]) [address] documented in this encounter Visit Diagnoses Not on filedocumented in this encounter Additional Health Concerns Infection Onset Date Last Indicated Resolved Time COVID-19 Under Investigation 09/13/2024 09/13/2024 09/13/2024 6:36 AM CDT documented as of this encounter Care Teams Roof Cement And Paint Maker Helper Relationship Specialty Start Date End Date Jeff Strickland MD [address] [place] [address] PCP - General 03/05/18 [place] [address] [address] Orthopedic Surgery 03/28/17 documented as of this encounter
--- OUTSIDE RECORDS SUMMARY | 2024-11-13 20:02 | XMS_ITS | Encounter Summary ---
Author Organization [facility] Address [facility] [place] [address] Care Team Providers Care Lead Quality Technician Name Role Phone Deandre Bojorquez MD Unavailable [phone] Jeff Strickland MD Primary Care Provider [phone] Encounter Details Date Type Department Care Team (Late st Contact Info) Description 11/21/2023 Lab Requisition [facility] MAIN LAB [address] [place] [phone] Alan Davenport MD [facility]1 [facility] [place] [address] Social History Tobacco Use Types Packs/Day Years Used Date Smoking Tobacco: Never Smokeless Tobacco: Never Alcohol Use Standard Drinks/Week Comments Not Currently 0 (1 standard drink = 0.6 oz pur e alcohol) socially in past Sex and Gender Information Value Date Recorded Sex Assigned at Male 07/02/2021 2:37 PM CDT 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 Gender Identity Male 07/02/2021 2:37 PM CDT [...] Office Visit [facility] - Endocrinology [address] [place] [address], [place] [address] Marbin Flores MD [address] [facility] DIV [place] [address] Niraj Turner MD [address] [place] [address] 2L [place] [address] 2025 1:00 PM CORRECTIONAL SUPERVISING COOK [facility] [address] [place] [address], [place] [address] Becky Wilson MD [address] [place] [phone] documented as of this encounter Procedures Procedure Name Priority Date/Time Associated Diagnosis Comments HOLD HLA SPECIMEN Routine 11/18/2023 12: 16 PM CDT documented in this encounter Results * HOLD HLA SPECIMEN (11/18/2023 12:16 PM CDT) Hold HLA Specimen 11/21/2023 1:31 PM CDT [facility] HLA [...] [facility] ([facility]) [address] documented in this encounter Visit Diagnoses Not on filedocumented in this encounter Additional Health Concerns Infection Onset Date Last Indicated Resolved Time COVID-19 Under Investigation 09/13/2024 09/13/2024 09/13/2024 6:36 AM CDT documented as of this encounter Care Teams Lead Quality Technician Relationship Specialty Start Date End Date Jeff Strickland MD [address] [place] [address] PCP - General 03/05/18 [place] [address] [address] Orthopedic Surgery 03/28/17 documented as of this encounter
--- OUTSIDE RECORDS SUMMARY | 2024-11-13 20:02 | XMS_ITS | Patient Health Record ---
Author Organization [facility] As [employer] [facility] Address [address] [place] [address] Care Team Providers Care Senior Business Process Analyst Name Role Phone Trenton Hernandez Unavailable [phone] Reason For Referral No Information Medications Medication [...] UNIT)-FOLIC ACID 1 MG TABLET *Reorder from [facility] for eRx and Interaction Alerts* 02/26/2023 Active Azelastine HCl 137 MCG/SPRAY Solution Nasal 02/26/2023 Active Dilt-XR 240 MG Capsule Extended Release 24 Hour Oral 02/26/2023 Active Potassium Chloride ER 10 MEQ Tablet Extended Release Oral 02/26/2023 Active Mounjaro 2.5 MG/0.5ML Solution Pen-injector Subcutaneous *Reorder from [facility] for eRx and Interaction Alerts* 02/26/2023 Active Methocarbamol 500 MG Tablet Oral 02/26/2023 Active Levothyroxine Sodium 112 MCG Tablet Oral 02/26/2023 Active Atorvastatin Calcium 80 MG Tablet Oral 02/26/2023 Active Gabapentin 100 MG Capsule Oral 02/26/2023 Active SODIUM BICARBONATE 1,650 MG-CITRIC ACID 1,000 MG EFFERVESCENT TABLET *Reorder from [facility] for eRx and Interaction Alerts* 02/26/2023 Active Sevelamer Carbonate 800 MG Tablet Oral 02/26/2023 Active IPRATROPIUM BROMIDE 21 MCG (0.03 %) NASAL SPRAY *Reorder from [facility] for eRx and Interaction Alerts* 02/26/2023 Active [...] ADHESIVE PATCH, MEDICATED TOPICAL *Pick strength-form from [facility] for eRX* 02/26/2023 Active Amoxicillin-Pot Clavulanate 875-125 MG Tablet Oral 02/26/2023 Active Amoxicillin 500 MG Capsule Oral 02/26/2023 Active guanFACINE HCl ER 3 MG Tablet Extended Release 24 Hour Oral 02/26/2023 Active Tamsulosin HCl 0.4 MG Capsule Oral 02/26/2023 Active SEVELAMER HCL 800 MG TABLET *Reorder from [facility] for eRx and Interaction Alerts* 02/26/2023 Active LEVOTHYROXINE 112 MCG CAPSULE *Reorder from [facility] for eRx and Interaction Alerts* 02/26/2023 Active ULTRA-FINE SHORT PEN NEEDLE 31 gauge x 5/16 NEEDLE, DISPOSABLE MISCELLANEOUS *Reorder from [facility] for eRx and Interaction Alerts* 02/26/2023 Active Tylenol PM Extra Strength *Pick strength-form from [facility] for eRX* 02/26/2023 Active Mounjaro 5 MG/0.5ML Solution Pen-injector Subcutaneous *Reorder from [facility] for eRx and Interaction Alerts* 02/26/2023 Active [...] Date Coverage End Date [employer] [address] [place] [phone] [id number] GRACE INTERIANO Self - patient is the insured Medical (General) History Surgical History Surgery Date(Month/Year) Removal of gallbladder (35661) Cataract surgery (21326) 02/17/2013 Sinus surgery 02/17/2021 Cardiac stent 07/18/2021
--- OUTSIDE RECORDS SUMMARY | 2024-11-13 20:02 | XMS_ITS | Encounter Summary ---
Author Organization [facility] Address [facility] [place] [address] Care Team Providers Care Button Grader Name Role Phone Deandre Bojorquez MD Unavailable [phone] Jeff Strickland MD Primary Care Provider [phone] Encounter Details Date Type Department Care Team (Late st Contact Info) Description 09/30/2023 Lab Requisition [facility] MAIN LAB [address] [place] [phone] Alan Davenport MD [facility]1 [facility] [place] [address] Social History Tobacco Use Types Packs/Day Years Used Date Smoking Tobacco: Never Smokeless Tobacco: Never Alcohol Use Standard Drinks/Week Comments Not Currently 0 (1 standard drink = 0.6 oz pur e alcohol) socially in past Sex and Gender Information Value Date Recorded Sex Assigned at Male 07/02/2021 2:37 PM CDT Legal Sex Male 10:14 PM FRONT CLERK Gender Identity Male 07/02/2021 2:37 PM [...] Visit [facility] - Endocr[facility]ology [address] [place] [address], [place] [address] Marbin Flores MD [address] [facility] DIV [place] [address] Niraj Turner MD [address] [place] [address] 2L [place] [address] 2025 1:00 PM FRONT CLERK [facility] [address] [place] [address], [place] [address] Becky Wilson MD [address] [place] [phone] documented as of this encounter Procedures Procedure Name Priority Date/Time Associated Diagnosis Comments HOLD HLA SPECIMEN Routine 09/24/2023 3:2 7 PM CDT documented in this encounter Results * HOLD HLA SPECIMEN (09/24/2023 3:27 PM CDT) Hold HLA Specimen 09/30/2023 4:32 PM CDT [facility] ([facility]) Comment:The Hold HLA specime n has been received into the lab and will be held for 5 years at 4 degrees. Blood BLOOD SPECIMEN / Unknown 09/24/2023 3:27 PM CDT 09/30/2023 3:27 PM CDT us Alan Davenport MD LAB - BLOOD BANK ORDERABLES F inal Result [facility] ([facility]) [address] documented in this encounter Visit Diagnoses Not on filedocumented in this encounter Additional Health Concerns Infection Onset Date Last Indicated Resolved Time COVID-19 Under Investigation 09/13/2024 09/13/2024 09/13/2024 6:36 AM CDT documented as of this encounter Care Teams Button Grader Relationship Specialty Start Date End Date Jeff Strickland MD [address] [place] [address] PCP - General 03/05/18 [place] [address] [address] Orthopedic Surgery 03/28/17 documented as of this encounter
--- OUTSIDE RECORDS SUMMARY | 2024-11-13 20:02 | XMS_ITS | Encounter Summary ---
Author Organization [facility] Address [address] [place] [address] Phone Care Team Providers Care Etl Lead Name Role Phone Jeff Strickland MD Primary Care Provider Chan Nicholas MD Unavailable [phone] Alan Mccall MD Unavailable [phone] Lorna Lantigua MD Unavailable [phone] Juliette Savage RN Unavailable Pepito Haro MD PhD Unavailable Soalnge Guido MD Unavailable [phone] Letha Gil RN Unavailable Encounter Details Date Type Department Care Team (Late st Contact Info) Description 05/02/2021 Ophth Exam [facility] Medicine Ophthalmology [address] [place] [address] 1st [place] [id number] Corina Ventura MD PhD [address] [address] Social History Tobacco Use Types [...] on file Legal Sex Male 2:23 AM EXTRUSION PRESS SUPERVISOR Gender Identity Not on file Sexual [...] COVID: Suspected 03/24/2023 03/24/2023 03/24/2023 5:45 PM EXTRUSION PRESS SUPERVISOR COVID19 03/24/2023 03/24/2023 04/08/2023 3:06 AM EXTRUSION PRESS SUPERVISOR COVID: Recovered Comment:Added based on recent COVID infection. 04/08/2023 04/10/2023 07/07/2023 3:06 AM C DT COVID: Suspected 04/10/2024 04/10/2024 04/11/2024 1:24 AM EXTRUSION PRESS SUPERVISOR C. difficile suspected 04/11/2024 04/11/202404/11 1:21 PM EXTRUSION PRESS SUPERVISOR documented as of this encounter Eye Exam [...] arcade Normal Periphery Normal Normal Care Teams Etl Lead Relationship Specialty Start Date End Date Jeff Strickland MD [address] [address] PCP - General Family Medicine 04/02/18 Chan Nicholas MD [address] [place] [address] [id number] Consulting Physician Gastroenterology 11/24/18 Alan Mccall MD [address] [place] [address] [address] Referring Physician Nephrology 11/24/18 Lorna Lantigua MD [facility] [address] [address] Consulting Physician Cardiology 11/24/18 07/22/23 Juliette Savage, RN [address] [place] [address] Nurse Navigator 06/04/21 03/14/22 Pepito Haro MD PhD [address] [place] [address] Consulting Physician Neurosurgery 12/03/22 Solange Guido MD [address] [place] [address] Referring Physician Cardiovascular Disease 07/23/23 Letha Gil, RN [address] [facility] [address] [place] [address] SHOP Outpatient Hand Trimmer 04/14/24 04/18/24 documented as of this encounter
--- OUTSIDE RECORDS SUMMARY | 2024-11-13 20:02 | XMS_ITS | Encounter Summary ---
Author Organization [facility] Address [facility] [place] [address] Care Team Providers Care Calliope Player Name Role Phone Deandre Bojorquez MD Unavailable Jeff Strickland MD Primary Care Provider Encounter Details Date Type Department Care Team (Late st Contact Info) Description 05/29/2023 Lab Requisition [facility] [address] [place] [id number] Alan Davenport MD [facility] [place] [address] Social History Tobacco Use Types Packs/Day Years Used Date Smoking Tobacco: Never Smokeless Tobacco: Never Alcohol Use Standard Drinks/Week Comments Not Currently 0 (1 standard drink = 0.6 oz pur e alcohol) socially in past Sex and Gender Information Value Date Recorded Sex Assigned at Male 07/02/2021 2:37 PM CDT Legal Sex Male 10:14 PM PLAY THERAPIST Gender Identity Male 07/02/2021 2:37 PM CDT [...] Office Visit [facility] - Endocrinology [address] [place] [address], [place] [phone] Marbin Flores MD [address] [facility] DIV OF [place] [address] Niraj Turner MD [address] [place] [address] [address] [place] [address] 2025 1:00 PM PLAY THERAPIST Office Visit [facility] - Neurology [address] [place] [address], [place] [address] Becky Wilson MD [address] [place] [phone] documented as of this encounter Procedures Procedure Name Priority Date/Time Associated Diagnosis Comments HOLD HLA SPECIMEN Routine 05/21/2023 9:2 4 AM CDT documented in this encounter Results * HOLD HLA SPECIMEN (05/21/2023 9:24 AM CDT) Hold HLA Specimen 05/29/2023 10:30 AM CDT [facility] Comment:The Hold HLA specime n has been received into the lab and will be held for 5 years at 4 degrees. Blood BLOOD SPECIMEN / Unknown 05/21/2023 9:24 AM CDT 05/29/2023 9:24 AM CDT us Alan Davenport MD LAB - BLOOD BANK ORDERABLES F inal Result [facility] [address] [place] [address] documented in this encounter Visit Diagnoses Not on filedocumented in this encounter Additional Health Concerns Infection Onset Date Last Indicated Resolved Time COVID-19 Under Investigation 09/13/2024 09/13/2024 09/13/2024 6:36 AM CDT documented as of this encounter Care Teams Calliope Player Relationship Specialty Start Date End Date Jeff Strickland MD [address] [place] [address] PCP - General 03/05/18 [place] [address] [address] Orthopedic Surgery 03/28/17 documented as of this encounter
--- OUTSIDE RECORDS SUMMARY | 2024-11-13 20:02 | XMS_ITS | Clinical Summary ---
Author Organization [facility] [employer] Address [address] [address] Care Team Providers [facility] Worker Name Role Phone Deandre Bojorquez MD Unavailable [phone] Jeff Strickland MD Primary Care Provider [phone] Source Comments [facility],non-owned Affiliates and Associated Physician Practices is amultiple site organization consisting of ambulatory clinics and hospital sitesin [place], [place], [place] and [place]. This disclosure is being madepursuant to the [...] 80 MG tabletIndication s:Coronary artery disease involving onondaga coronary artery of onondaga heart without angina pectoris Take 1 (one) tablet by mouth once daily 90 tablet 3 12/05/19 24 Active B Awikhnr-Y-Gfxim Acid (Dialyvite 800) 0.8 MG 1 tablet Orally Once a day for 30 day(s) Active lisinopril (Prinivil; Zestril) 20 MG tabletIndication s:Coronary artery disease involving onondaga coronary artery of onondaga heart without angina pectoris,Resista nt hypertension Take [...] For SBP greater than 180, Reported on 11/12/2024 tamsulosin (Flomax) 0.4 MG capsule Take 1 (one) capsule by mouth once daily 06/04/19 25 Active clopidogrel (plaVIX) 75 MG tablet Take 1 (one) tablet by mouth once daily 90 tablet 3 5 4:41 PM CDT 07/22/19 25 Active Aspirin Low Dose 81 MG tabletIndication s:CAD in onondaga artery TAKE 1 TABLET BY MOUTH ONCE DAILY 90 tablet 3 08/24/19 25 Active HYDROcodone-acet aminophen (Hubbard) 5-325 MG tablet Take 1 (one) tablet [...] 3 09/17/19 25 025 Discontin ued(List Clean-Up) doxycycline hyclate 100 MG tabletIndication s:Abscess,Cellul itis Take 1 (one) tablet by mouth 2 times daily for 14 days Reasons: Confined Pocket or Collection of Pus, Infection Under the Skin 28 tablet 10/05/19 25 025 Additional Information Patient not taking.Reported on 10/19/2024 nystatin-triamci nolone (Mycolog) 434362-2.1 UNIT/GM-% cream 10/06/19 25 025 Discontin ued(List Clean-Up) cefpodoxime (Vantin) 200 MG tablet Take 1 (one) tablet by mouth every 12 hours for 14 days 28 tablet 10/08/19 25 025 mirtazapine (Remeron) 7.5 MG tablet 10/15/19 25 025 Discontin ued(List Clean-Up) ondansetron, disintegrating, (Zofran [...] -consider sevelamer but will defer to outpt purchasing coordinator -avoid nephrotoxic agents, and dose meds renally [...] & Plan (09/24/2024 6:20 AM CDT): {[facility] Quick Recap - Optional:67929:::1} -continue home coreg 25 mg BID, furosemide [...] -consider sevelamer but will defer to outpt purchasing coordinator -avoid nephrotoxic agents, and dose meds renally -replete lytes PRN Assessment & Plan (09/24/2024 6:20 AM CDT): {[facility] Quick Recap - Optional:85738:::1} - pt missed PD 09/23 due to [...] & Plan (09/24/2024 6:20 AM CDT): {[facility] Quick Recap - Optional:98959:::1} -continue home coreg 25 mg BID, furosemide [...] if vessel amenable to PCI Atherosclerosis of onondaga ar teries of the extremities with ulceration [...] & Plan (09/24/2024 6:20 AM CDT): {[facility] Quick Recap - Optional:20782:::1} -continue home coreg 25 mg BID, furosemide [...] & Plan (09/24/2024 6:20 AM CDT): {[facility] Quick Recap - Optional:84946:::1} - home glargine 35 units daily with [...] were not included. Grace Interiano 1955 Referring Military Police Officer: Alan Mccall Dialysis Info: Type: PD--> HD-->PD Time: 01/17/2020 Blood Type: O NEG Body mass index is 37.54 kg/m . ALERTS: Dr. Mendoza following enhancing lesion noted to upper pole of the left kidney. IR biopsy confirming oncocytoma in 07/2020. House Steward/Stewardess: Nadia Stock MD ESRD r/t DM2 and HTN Past Medical History: Diagnosis Date Arthropathy Dr Strickland manages. CHF (congestive heart failure) ([facility]) 2 yrs ago Financial Planning Advisor is Dr. Becerra in [place]. CKD (chronic kidney disease), stage V (HCC) Community acquired pneumonia 2018 [facility] hospitalized. Diabetes mellitus (HCC) 20 years. [facility]. House Steward/Stewardess Dr. Davis at [place]. 03/26/21 last seen. Esophageal reflux takes med [...] on CPAP Renal cell carcinoma (HCC) [address] [place] Pruett surgeon. followed up every 6 [...] recently was assessed by his PCP at [facility] who performed short blessed test score of [...] in the presence of Richard Cornelius MD, (professor of radiology). > Interpreting Provider: Raymundo Hanson MD on [...] CL TI [chronic limb threatening ischemia] # [place] class V # Peripheral artery disease -I [...] RTC In 2 to 3 weeks at [place] (as per patient and family's request) All [...] of the time was also spent in gmnz-yy-equp interaction with the patient as well as formulating a plan for management. Thank you for allowing us to participate in the care of your patient and please do not hesitate to reach out to us if any questions or concerns. Yanna Goodman MD MPH Peripheral Angiogram: 08/18/2024 (PAD - L LE peripheral angiogram/ BILLET BED OPERATOR/stenting) Conclusion Left leg angiogram showed left AT severe diffuse disease with multiple subtotal occlusion and left PT severe diffuse disease with CISCO UNIFIED COMMUNICATIONS ENGINEER of distal PT without clear reconstitution. Successful [...] of Plavix. -recommend close follow up with hris administrator and follow up with me in clinic [...] 0.018 CXI microcatheter with multiple wires(Command 18/command 14/Operating System Designer 200) to get to great toe branch of dorsalis pedis using pilot teacher [address]. - the AT-DP lesion was dilated with balloons mentioned in figure. - We turn our attention to PT. We crossed the PT CISCO UNIFIED COMMUNICATIONS ENGINEER with 0.018 CXI microcatheter with multiple wires (command 18, command 14, Operating System Designer 200) and able to go to lateral [...] using angiography. Left Posterior Tibial Ost L BILLET BED OPERATOR to Dist L BILLET BED OPERATOR lesion is 100% stenosed. Stenosis was measured using angiography. Intervention Ost L ROSETTA to Dist L ROSETTA lesion Angioplasty Angioplasty independent of stent deployment was performed using a standard balloon. The balloon used was Cath VANDOLAYn Emrg Mr Wh 1.5Mm 144Cm 15Mm 2. [...] 10% residual stenosis post intervention. Ost L BILLET BED OPERATOR to Dist L BILLET BED OPERATOR lesion Angioplasty Angioplasty independent of stent [...] # Peripheral artery disease -I personally interpreted JOSAINE from May 2024 [done outside] which showed [...] to 3 weeks [ ] f/u Areli Rosenda, plan discussed with her. Other cardiac issues [...] of the time was also spent in dezj-op-gvdn interaction with the patient as well as [...] or MRA given ESRD 4. Atherosclerosis of onondaga coronary artery of onondaga heart without angina pectoris 5. Hypertriglyceridemia -H/o PCI to mLAD in 07/2020, NM stress negative for ischemia in 10/2022 -Aspirin 81 mg daily, atorvastatin 80 mg daily, fenofibrate 145 mg daily -CMP, fasting lipid panel, and A1c 6. Type 2 diabetes mellitus with other specified complication, unspecified whether parts counterman insulin use (HCC) -A1c 6.4% in 03/2023, [...] right eye and seeing ophthalmology for this. [id number] Gabe-Abida DP, Nikunj L, Nba J, Abner ES, Maren D, Mark D, Adrianna E, Triny J, Linda'Uli J, Art M, Mundo D, Tyler PK, Kimberly J, Keiko S, Art D, Chanelle R, Walker J, Ace F, Oliviaermann T, Eric M, Svitlana P, Christian DS, Bari C, Al- Qaoud T, Eggener S, Tamika FARZANEH, Eladio GJ, Lucy C, Lisa G, Thania R, Elissa , Prashanth C, Brice N, Yesi DP, Wattammie KD. Pretransplant solid organ malignancy and organ transplant candidacy: A consensus expert opinion statement. Am J Transplant. 2020;21(2):460-474. doi: 10.1111/ajt.50464. Epub 2019Dec 09. PMID: 78400763. Urology: 08/04/2024 Attestation signed by Thomas Mendoza [...] CK7 and BerEP4. If this biopsy is branch customer service representative of the entire lesion, [...] Krystal Abel, RN Sent: 03/28/2022 2:07 PM CHILD CARE PROVIDER To: Martinez Sandhu MD, * Tomaszlo. I [...] with you scheduled in Nov. Thank you Krsytal Abel RN [facility], [facility] Patch Driller [phone] endoscopic resection of a sellar mass: 11/22/2021 [...] a formal visual hay exam with his health outreach worker. We reviewed the surgical pathology report. He may restart his baby aspirin. At this time, I recommend a follow up MRI pituitary protocol in 3- 6 months with a visit with me after imaging and patient is agreeable. Strict return precautions were reviewed. D CARE PROVIDER Pertinent Previous Committee Presentations: 10/14/2024 Committee Review [...] (higher cognitive impairment) done at outside hospital. [facility] Neuro notes sxs consistent with mild cognitive impairment. Reviewed brain MRI and CT reports. Discussed [facility] MRI report noting diffuse cerebral volume loss, slightly more than expected. Also reviewed PVD and cardiac history. Per team, no longer a candidate for transplant d/t multiple comorbidities. 07/01/2024 Committee Review Decision: Remain Inactive Committee Discussion Details: Reviewed calcifications on CT. CT reviewed at [facility] 06/24/[address] Flores. He deferred decision asking for review by additional surgeons. CT reviewed today with Dr Davenport and Dr Lane. Calcifications doable. Pt to remain listed for transplant (inactive pending additional work up). 12/19/2022 Committee Review Decision: Make Inactive Committee Discussion Details: Pt was presented at [facility] to make inactive on the kidney [...] mg/kg Committee Discussion Details: Pt brought to [facility] to discuss possible listing. -Reviewed PMH [...] -Follow up imaging was previously discussed at [facility] on 03/28/2022 and again today. Radiology unable to rule out cancer on imaging. Team decision after [facility] 03/28/2022 was to have pt complete [...] cardiology note from 10/25/2021. Pt follow with [facility] cardiology s/p PCI to LAD with stents [...] 03/28/2022: Committee Discussion Details: Pt brought to [facility] to review recent CT imaging concerning [...] 09/27/2021: Committee Discussion Details: Pt brought to [facility] due to Pituitary tumor. -Reviewed pts [...] 08/10/2020: Committee Discussion Details: Pt brought to [facility] to discuss recent PCI to mid [...] calculated left ventricular ejection fraction of 54%. [facility]: 07/21/2024 Conclusion 2-vessel CAD with [...] 6Fr 1.25Mm Diamondback catheter and using a [facility] Diamondback 360 Viperwire Adv wire. [...] is a 0% residual stenosis post intervention. [facility]: 08/04/2020 HEMODYNAMIC FINDINGS: LVEDP 18 [...] ANTICOAGULATION DURING PCI: Heparin INTERVENTIONAL WIRE: A [employer] wireless pressure wire was advanced beyond the [...] nature. > Dictated by Lalit Muñoz DO (professor of radiology). MRI Abd wwo: 08/04/2024 Findings: Lower Chest: [...] 08/02/2020. 2.Peritoneal dialysis catheter in the pelvis. Rllyw-li-jfnohpux volume ascites throughout the abdomen and pelvis, [...] Impression: It is the impression of this transition social worker that Grace Interiano has several [...] to be the back up caregiver. Plan: fast foods worker to provide supportive services as needed. Patient remains a reasonable candidate for transplant from a psychosocial perspective. Psychiatric Consult Recommended: No Transplant Tester [employer]: Malinda Escamilla, RAJ, DECORATOR MANNEQUIN Abdominal Transplant Tester [employer] [phone] Transplant Caregiver Confirmation Note Caregiver Confirmation Date Primary Name of Primary: Harriet Interiano Relationship: spouse - Confirmed during initial assessment 01/14/2022 - BILLET BED OPERATOR form received on 01/14/2022 - Secondary [...] Encounters Date Type Department Care Team Description 11/12/2024 5:48 AM CDT - 11/12/2024 12:40 PM CDT Hospital Encounter [facility] RITO OP [address] [place] [address] Elroy Holcomb MD [facility]ven Radiology Discharge Disposition: Home or Self Care 11/12/2024 Orders Only [facility] PHYS SURGERY [address] [place] [phone] Griffin Rodriguez MD 11/12/2024 Travel 11/11/2024 Telephone [facility] IVR [address] [place] [phone] Savanna Vera RN Appointment 11/11/2024 Telephone [facility] - Vascular Surgery [address] [place] [phone] Elroy Holcomb MD Question 11/02/2024 1:45 PM CDT Office Visit [facility] - Vascular Surgery [address] [place] [phone] Elroy Holcomb MD PAD (peripheral artery disease) (Primary Dx); Amputation of left great toe 11/02/2024 Travel 10/28/2024 12:27 PM CDT - 10/28/2024 1:05 PM CDT Emergency [facility] EMERGENCY DEPARTMENT [address] [place] [phone] Chest pain, unspecified type Discharge Disposition: Left Against Medical Advice/Discontinued Care 10/28/2024 1:55 AM CDT - 10/28/2024 5:16 AM CDT Emergency [facility] EMERGENCY DEPARTMENT [address] [place] [address] [place] [address] Charmaine Khalil MD Chest pain, unspecified type; Abdominal distension; Atypical chest pain; History of coronary angioplasty with insertion of stent; ESRD (end stage renal disease) on dialysis (HCC); PAD (peripheral artery disease) Discharge Disposition: Left Against Medical Advice/Discontinued Care 10/27/2024 1:30 AM CDT - 10/27/2024 11:59 PM CDT Hospital Encounter [facility] MAIN LAB [address] [place] [address] Discharge Disposition: Home or Self Care 10/27/2024 Travel 10/26/2024 2:00 PM CDT Office Visit [facility] - Vascular Surgery [address] [place] [phone] Elroy Holcomb MD PAD (peripheral artery disease) (Primary Dx) 10/26/2024 Travel 10/25/2024 Telephone [facility] - Vascular Surgery [address] [place] [phone] Elroy Holcomb MD Pain; Appointment 10/21/2024 12:14 PM CDT - 10/21/2024 11:59 PM CDT Hospital Encounter [facility] LAB OP DRAW STATION [address] [place] [address] Discharge Disposition: Home or Self Care 10/21/2024 10:40 AM CDT Office Visit [facility] - Neurology [address] [place] [phone] Becky Wilson MD Confusion (Primary Dx); Memory loss 10/21/2024 Telephone [facility] - Neurology [address] [place] [phone] Becky Wilson MD Record Request 10/21/2024 Travel 10/19/2024 4:33 PM CDT - 10/19/2024 6:50 PM CDT Emergency [facility] EMERGENCY DEPARTMENT [address] [place] [phone] Kalani Braswell MD Medication side effect (Primary Dx); Lightheadedness; Acute nonintractable headache, unspecified headache type; At risk for polypharmacy; Hypokalemia Discharge Disposition: Home or Self Care 10/19/2024 1:00 PM CDT Office Visit [facility] - Vascular Surgery [address] [facility], [place] [phone] Elroy Holcomb MD 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) (Primary Dx); PAD (peripheral artery disease) 10/19/2024 Travel 10/17/2024 9:19 PM CDT - 10/17/2024 9:53 PM CDT Emergency [facility] EMERGENCY DEPARTMENT [address] [place] [phone] Other chest pain (Primary Dx) Discharge Disposition: Left Against Medical Advice/Discontinued Care 10/17/2024 Travel 10/14/2024 Telephone [facility] TRANSPLANT [address] [place] [phone] Savanna Edwards RN Kidney Transplant Evaluation 10/13/2024 1:00 PM CDT Office Visit [facility] - Cardiology [address] [facility] [address] [place] [phone] Maylin Cutler DO Memory loss (Primary Dx); Chronic diastolic heart failure (HCC); Resistant hypertension; ESRD on PD; Abnormal stress test; Coronary artery disease involving onondaga coronary artery of onondaga heart without angina pectoris; Hypertriglyceridemia; Type 2 diabetes mellitus with other specified complication, with long-term current use of insulin (HCC); PAD (peripheral artery disease) 10/13/2024 Travel 10/09/2024 5:15 PM CDT - 10/09/2024 10:17 PM CDT Emergency [facility] EMERGENCY DEPARTMENT [address] [place] [phone] Sukhwinder Wagner MD Short of breath on exertion; Memory loss Discharge Disposition: Home or Self Care 10/09/2024 Travel 10/07/2024 4:34 PM CDT - 10/07/2024 8:44 PM CDT Emergency [facility] EMERGENCY DEPARTMENT [address] [place] [phone] Richard Sylvester MD Urinary tract infection associated with indwelling urethral catheter, initial encounter (Primary Dx); Headache, unspecified headache type; Hypotension, unspecified hypotension type Discharge Disposition: Home or Self Care 10/07/2024 Travel 10/05/2024 1:45 PM CDT Office Visit [facility] - Vascular Surgery [address] [place] [address] Guy Messina MD Williams, Michael S, MD Amputation of left great toe (Primary Dx); PAD (peripheral artery disease) 10/05/2024 11:24 AM CDT - 10/05/2024 11:59 PM CDT Hospital Encounter [facility] VASCULAR US [address] [place] [address] Guy Messina MD Discharge Disposition: Home or Self Care 10/05/2024 Travel 10/04/2024 11:40 AM CDT Office Visit [facility] - Cardiology [address] [facility] [address] [place] [address] Hannah Goodman MD PAD (peripheral artery disease) (Primary Dx); Resistant hypertension; Chronic diastolic heart failure (HCC); Type 2 diabetes mellitus with other specified complication, with long-term current use of insulin (HCC) 10/04/2024 Travel 09/27/2024 Telephone [facility] - Endocrinology [address] [place] [phone] Niraj Turner MD Med Question 09/27/2024 Telephone [facility] - Endocrinology [address] [place] [phone] Niraj Turner MD Appointment 09/24/2024 Results Follow-Up [facility] Early Admission Unit [address] [place] [address] Angel Crook MD 09/24/2024 Telephone [facility] - Endocrinology [address] [place] [phone] Niraj Turner MD Appointment 09/23/2024 10:57 PM CDT - 09/25/2024 3:57 PM CDT Hospital Encounter [facility] Early Admission Unit [address] [place] [address] Jennifer Winn MD Morreale, Peter J III, MD [place], Joseph R, MD Internal Medicine Discharge Disposition: Home or Self Care 09/23/2024 Travel 09/23/2024 Telephone [facility] - Cardiology [address] [facility] [address] [place] [address] Hannah Goodman MD Question 09/20/2024 Telephone [facility] - Endocrinology [facility] [place] [address] Niraj Turner MD Appointment 09/18/2024 3:46 PM CDT - 09/19/2024 12:11 AM CDT Emergency [facility] EMERGENCY DEPARTMENT [address] [place] [address] Gricel Benedict MD Lightheadedness (Primary Dx); Transient hypotension; Generalized weakness Discharge Disposition: Home or Self Care 09/18/2024 Travel 09/17/2024 Telephone [facility] - Endocrinology [address] [place] [phone] Niraj Turner MD Appointment 09/17/2024 Telephone [facility] - Centralized Scheduling [address] [place] [address] Niraj Turner MD Appointment 09/17/2024 Telephone Transitional Care at [facility] [address] [place] [address] Teressa Lopez RN Transitional Care 09/14/2024 10:50 AM CDT - 09/14/2024 12:29 PM CDT Surgery [facility] RITO OP [address] [place] [phone] Elroy Holcomb MD LEFT GREAT TOE AMPUTATION 09/14/2024 10:44 AM CDT Anesthesia Event [facility] RITO OP [address] [place] [phone] Olu Taylor DO ByElroy barr, BROOK 09/12/2024 10:15 PM CDT - 09/16/2024 5:41 PM CDT Hospital Encounter [facility] SHORT STAY UNIT [address] [place] [address] Yuriy Lopez MD Morreale, Peter J III, MD Fazeel, Hafiz Muhammad, MD Emergency Medicine Discharge Disposition: Home Health Care [facility] 09/12/2024 Travel 09/10/2024 Telephone [facility] - Centralized Scheduling [address] [place] [address] Niraj Turner MD 09/09/2024 Transitional Care [facility] CARE COORDINATION [address] [place] [address] Alesia Bush RN Transitions Of Care 09/03/2024 9:47 PM CDT - 09/08/2024 3:08 PM CDT Hospital Encounter [facility] 6S ACUTE [address] [place] [address] Charmaine Khalil MD Hoque, Farzana, MD Smutz, Kellen J, DO Eshetu, Nebiyu A, MD Syed, Cezar Gauthier MD Emergency Medicine Discharge Disposition: Home or Self Care 09/03/2024 Travel 09/03/2024 Telephone [facility] - Cardiac Rehab [address] [place] [address] Aracely Tracy, software test engineer (States has discussed with pt and would like to schedule cardiac rehab. Discussed pt health, pt's expresses concern re: overall health, leg weakness. Pt is ambulatory. Discussed options with and encouraged to schedule appt with PCP and also to speak with communication skills instructor. She and pt do not want to delay starting cardiac rehab. ) 09/03/2024 Telephone [facility] - Cardiology [address] [facility] [address] [place] [address] Hannah Goodman MD Post-Op 09/02/2024 Telephone [facility] - Cardiac Rehab [facility] [place] [address] Aracely Tracy, software test engineer 09/01/2024 10:50 AM CDT - 09/01/2024 12:36 PM CDT Surgery [facility] - Cardiac Cio [address] [place] [address] Vanessa Medina MD Temporary Pacemaker Insertion 09/01/2024 8:28 AM CDT - 09/01/2024 5:55 PM CDT Hospital Encounter [facility] RITO OP [address] [place] [address] Vanessa Medina MD Cardiac Catheterization Discharge Disposition: Home or Self Care 09/01/2024 Travel 08/30/2024 10:00 AM CDT Office Visit [facility] - Cardiology [address] [place] [phone] Hannah Goodman MD PAD (peripheral artery disease) (Primary Dx); Arterial leg ulcer (HCC); ESRD on PD 08/21/2024 Refill [facility] - Cardiology [address] [place] [phone] Letha Christine APRN-QA TEST ANALYST Refill Request 08/18/2024 10:05 AM CDT - 08/18/2024 12:13 PM CDT Surgery [facility] - Cardiac Cio [facility] [place] [address] Hannah Goodman MD Angiogram - Peripheral 08/18/2024 9:14 AM CDT - 08/19/2024 3:26 PM CDT Hospital Encounter [facility] SHORT STAY UNIT [address] [place] [address] Hannah Goodman MD Cardiac Catheterization Discharge Disposition: Home or Self Care from Last 3 Months Immunizations Immunization Administration [...] Recorded Patient Health Questionnaire-2 Score 6 10/05/2024 [facility] Occupat ional Health - Occupational Stress [...] any time in the past 12 m [facility], were you homeless or living in a [facility] (including now)? No 09/24/2024 Sex and Gender Information Value Date Recorded Sex Assigned at Male 07/02/2021 2:37 PM CDT Legal Sex Male 10:14 PM CHILD CARE PROVIDER Gender Identity Male 07/02/2021 2:37 PM CDT [...] Mass Index 37.1 11/12/2024 6:23 AM CDT Plan of Treatment Upcoming Encounters Date Type Department Care Team (Late st Contact Info) Description 12/06/2024 10:40 AM CDT Office Visit [facility] Endocrinology [address] [place] [address], [place] [id number] Marbin Flores MD [address] [facility] DIV OF ABD TRANSPLANT [place]ERY [place] [address] Niraj Turner MD [address] [place] [address] 2L Div [place] [address] 2025 1:00 PM CHILD CARE PROVIDER Office Visit [facility] - Neurology [address] [place] [address], [place] [address] Becky Wilson MD [address] [place] [phone] Health Maintenance Due Date Last Done Comments [...] this topic Medical Devices Implanted Type Area Underwriting Sales Representative Device Identifier Shelf Expiration Date Model / Serial / Lot Sys Cor Stent Xience Srr 3mm 18mm Rap Ex Implanted:Qty: 1 on 08/04/2020 by Javier Lan MD at [facility] Stent Coronary [employer] 06/19/2022 [id number] Description:STENT Sys Cor Stent Xience Srr 3mm 8mm Rap Ex Implanted:Qty: 1 on 08/04/2020 by Javier Lan MD at [facility] Stent Coronary [employer] 09/03/2021 [id number] Description:stent Sys Cor Stent Sng Xd Monrl 3.5mm 48mm - [id number] Implanted:Qty: 1 on 08/18/2024 by Hannah Goodman MD at [facility] [id number] 09/07/2025 [id number] / [id number] / [id number] Sys Cor Stent Sng Xd Mr 4mm 24mm Dlv Sys - [id number] Implanted:Qty: 1 on 09/01/2024 by Vanessa Medina MD at [facility] [employer] [id number] 10/19/2025 [id number] / [id number] / [id number] Explanted Type Area Underwriting Sales Representative Device Identifier Shelf Expiration Date Model / Serial / Lot Cath Pace Eltrd Biplr Dist Tip Balln Flw - [id number] Explanted:Qty: 1 on 09/01/2024 at [facility] [employer] [id number] 12/17/2025 [id number] / [id number] / [id number] Procedures Procedure Name Priority Date/Time Associated Diagnosis Comments IR ANGIOGRAM BILATERAL LEG Routine 11/12/2024 9:06 AM CDT PAD (peripheral artery disease) Amputation of left great toe BASIC METABOLIC PANEL (CALCIUM TOTAL) STAT 11/12/2024 7:11 AM CDT ESRD (end stage renal disease) (HCC) GLUCOSE - POINT OF CARE Routine 11/12/2024 7:05 AM CDT CARDIAC EKG ORDER 10/29/2024 4:3 1 PM [...] 12:24 PM CDT Coronary artery disease involving on[place] heart with angina pectoris, unspecified vessel or [...] unspecified vessel or lesion type, unspecified whether on[place] or transplanted heart CCL TEMPORARY PACEMAKER INSERTION Routine 09/01/2024 2:18 PM CDT Abnormal stress test Dyspnea on exertion Pre-kidney transplant, listed Coronary artery disease with angina pectoris, unspecified vessel or lesion type, unspecified whether on[place] or transplanted heart Abnormal findings on cardiac catheterization CCL CORONARY ATHERECTOMY Routine 09/01/2024 2:18 PM CDT Abnormal stress test Dyspnea on exertion Pre-kidney transplant, listed Coronary artery disease with angina pectoris, unspecified vessel or lesion type, unspecified whether on[place] or transplanted heart Abnormal findings on cardiac catheterization CCL CORONARY IVUS Routine 09/01/2024 2:1 8 PM CDT Abnormal stress test Dyspnea on exertion Pre-kidney transplant, listed Coronary artery disease with angina pectoris, unspecified vessel or lesion type, unspecified whether on[place] or transplanted heart Abnormal findings on cardiac catheterization CCL STAGED PERC CORONARY INTERVENTION Routine 09/01/2024 2:18 PM CDT Abnormal stress test Dyspnea on exertion Pre-kidney transplant, listed Coronary artery disease with angina pectoris, unspecified vessel or lesion type, unspecified whether on[place] or transplanted heart Abnormal findings on cardiac catheterization GLUCOSE - POINT OF CARE Routine 09/01/2024 10:00 AM CDT CBC W/O DIFFERENTIAL ANDIE 09/01/2024 9:57 AM CDT Coronary artery disease with angina pectoris, unspecified vessel or lesion type, unspecified whether on[place] or transplanted heart Abnormal findings on cardiac catheterization BASIC METABOLIC PANEL (CALCIUM TOTAL) ANDIE 09/01/2024 9:57 AM CDT Coronary artery disease with angina pectoris, unspecified vessel or lesion type, unspecified whether on[place]aga or transplanted heart Abnormal findings on cardiac [...] Routine 08/18/2024 2:33 PM CDT 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) ACT LR - POCT ([facility]) Routine 08/18/2024 2:08 PM CDT ACT LR - POCT ([facility]) Routine 08/18/2024 1:24 PM CDT ACT LR - POCT ([facility]) Routine 08/18/2024 12:57 PM CDT ACT LR - POCT ([facility]) Routine 08/18/2024 12:13 PM CDT ANGIOPLASTY PERIPHERAL ARTERY 08/18/2024 10:49 AM CDT 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) GLUCOSE - POINT OF CARE Routine 08/18/2024 10:15 AM CDT BASIC METABOLIC PANEL (CALCIUM TOTAL) ANDIE 08/18/2024 10:11 AM CDT 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) CBC W/O DIFFERENTIAL ANDIE 08/18/2024 10:01 AM CDT 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) HEPATITIS C ANTIBODY Routine 06/16/2024 4:15 PM CDT Pre-kidney transplant, listed ESRD (end stage renal disease) (HCC) 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, without long-term current use of insulin (HCC) Hypertension, unspecified type Oncocytoma Kidney stones SHABNAM on CPAP Coronary artery disease involving onondaga coronary artery of onondaga heart, unspecified whether angina present from Last 3 Months or Most Recently Relevant to Health Maintenance Results * IR Angiogram Bilateral Leg (11/12/2024 9:06 AM CDT) Anatomical Region Laterality Modality Lower Extremity X-Ray Angiograph y 11/12/2024 9:47 AM CDT Impressions 11/12/2024 3:38 PM CDT IMPRESSION: Left lower extremity angiogram with patent PRINTED CIRCUIT BOARDS BEVELER, SFA with areas of < 50% stenosis, patent TP trunk with occlusions in the peroneal and PT shortly after origin, with single vessel runoff to the foot via the AT with occlusion in the DP in the foot. Right lower extremity angiogram with patent PRINTED CIRCUIT BOARDS BEVELER, SFA, and TP trunk with an occluded [...] Owusu 11/12/2024 9:47 AM > Dictated by Mortar Mixer Operator I, Elroy Holcomb MD have personally reviewed [...] monitored moderate sedation ATTENDING: Elroy Holcomb MD SOLAR SALES MANAGER: Griffin Rodriguez MD; Elroy Owusu MD ANESTHESIA: [...] exchanges this was upsized for a 5 Taiwanese sheath. A guidewire and omniflush catheter were [...] evaluation, please review the evaluation forms in [facility]. For details on monitored clinical parameters during the intra-service sedation time, please review the procedure nurse documentation in [facility]. Procedure Note Elroy Holcomb MD - [...] monitored moderate sedation ATTENDING: Elroy Holcomb MD SOLAR SALES MANAGER: Griffin Rodriguez MD; Elroy Owusu MD ANESTHESIA: [...] of exchanges thiswas upsized for a 5 Taiwanese sheath. A guidewire and omniflush catheter werethen [...] evaluation, please review the evaluation forms in [facility]. For details on monitored clinical parameters during the intra-service sedation time, please review the procedure nurse documentation in [facility]. IMPRESSION: Left lower extremity angiogram with patent PRINTED CIRCUIT BOARDS BEVELER, SFA with areas of < 50% stenosis, patent TP trunk with occlusions in the peroneal and PT shortly after origin, with single vessel runoff to the foot via the AT with occlusion in the DP in the foot. Right lower extremity angiogram with patent PRINTED CIRCUIT BOARDS BEVELER, SFA, and TP trunk with an occluded AT distally, andocclusion in peroneal at level of ankle, and multifocal areas of stenosis in thePT which appears occluded at the level of the ankle. Successful deploymentof 5 Fr Mynx control closure device. Total fluoroscopy time of 4.2min. Total contrast usage of 60mL > Dictated by Elroy Owusu 11/12/2024 9:47 AM > Dictated by Mortar Mixer Operator I, Elroy Holcomb MD have personally reviewed and interpreted this examination/study. > Interpreting Provider: Elroy Holcomb MD on 11/12/2024 3:38 PM us Elroy Holcomb MD IR ORDERABLES Final Resu lt * (ABNORMAL) BASIC METABOLIC PANEL (CALCIUM TOTAL) (11/12/2024 7:11 AM CDT) Only the most recent of7 resultswithin the time period is included. BUN 28(H) 7 - 26 mg/dL 11/12/2024 7:59 AM [facility] Creatinine 7.33(H) 0.71 - 1.16 mg/dL 11/12/2024 7:59 AM [facility] Sodium 138 136 - 145 mmol/L 11/12/2024 7:59 AM [facility] Potassium 3.5 3.5 - 4.5 mmol/L 11/12/2024 7:59 AM [facility] Chloride 97(L) 98 - 107 mmol/L 11/12/2024 7:59 AM [facility] CO2 25 22 - 29 mmol/L 11/12/2024 7:59 AM [facility] Glucose 164(H) 70 - 99 mg/dL 11/12/2024 7:59 AM [facility] Calcium 7.8(L) 8.4 - 10.2 mg/dL 11/12/2024 7:59 AM [facility] Anion Gap 16 6 - 16 11/12/2024 7:59 AM [facility] BUN/Creatinine Ratio 4(L) 7 - 23 11/12/2024 7:59 AM [facility] Osmolality Calculated 295 275 - 295 mOsm/kg 11/12/2024 7:59 AM [facility] eGFR by CKD-EPI 8(L) >=90 mL/min/1.7 3 m2 11/12/2024 7:59 AM [facility] Comment:Estimated Glomerular Filtration Rate (eGFR) calculated using the CKD-EPI Creatinine Equation (2020), per the National Kidney Foundation and [place] Society of Nephrology recommendations. Blood BLOOD SPECIMEN / Unknown Lab Venipuncture / Unknown 11/12/2024 7:11 AM CDT 11/12/2024 7:44 AM [facility] Elroy Holcomb MD LAB - CHEMISTRY ORDERABLES Final Result [facility] [address] [place] [address], [facility] [phone] * (ABNORMAL) GLUCOSE - POINT OF CARE (11/12/2024 7:05 AM CDT) Only the most recent of56 resultswithin the time period is included. Glucose WB/POC 193(H) 70 - 99 mg/dL 11/12/2024 7:06 AM CDT [facility] Specimen Type Venous 11/12/2024 7:06 AM CDT [facility] Blood BLOOD SPECIMEN / Unknown 11/12/2024 7:05 AM CDT 11/12/2024 7:06 AM CDT us Elroy Holcomb MD LAB - POINT OF CARE ORDERA BLES Final Result Performing Organization Address City/[facility]/ZIP Co de Phone Number [address] [address], [facility] [phone] * CARDIAC EKG ORDER (10/29/2024 4:31 PM CDT) Only the most recent of7 resultswithin the time period is included. Narrative 10/29/2024 4:31 PM CDT Ordered by an unspecified provider. us Scanned Document CARDIAC SERVICES ORDERABLES Fin al Result * (ABNORMAL) TROPONIN-I HIGH SENSITIVE REFLEX 1HOUR (10/28/2024 2:31 AM CDT) Only the most recent of8 resultswithin the time period is included. Pathologist [facility] Troponin I High Sensitive 71(H) <=35 ng/L 10/28/2024 3:13 AM CDT [facility] Delta Troponin I HS 10/28/2024 3:13 AM CDT [facility] Comment:Delta value intentio tito not calculated. Baseline to 1 hour specimen collection interval exceeded. Blood BLOOD SPECIMEN / Unknown Venipuncture / Unknown 10/28/2024 2:31 AM CDT 10/28/2024 2:37 AM CDT us Savanna Mcfarlane MD LAB - CHEMISTRY ORDERABLES Fi nal Result Performing Organization Address City/[facility]/ZIP Co de Phone Number [address] [address], [place] [phone] * LACTIC ACID BLOOD REFLEX TO REPEAT (10/28/2024 2:31 AM CDT) Only the most recent of5 resultswithin the time period is included. Lactic Acid-Stat 1.9 <=2.0 mmol/L 10/28/2024 3:06 AM CDT [facility] Blood BLOOD SPECIMEN / Unknown Venipuncture / Unknown 10/28/2024 2:31 AM CDT 10/28/2024 2:37 AM CDT us Savanna Mcfarlane MD LAB - CHEMISTRY ORDERABLES nal Result [facility] [address] [place] [address], [facility] [phone] * XR Chest 2Vw (10/27/2024 11:58 PM CDT) Only the most recent of4 resultswithin the time period is included. Anatomical Region Laterality Modality Chest Digital Radiogra phy 10/28/2024 12:0 2 AM CDT Narrative 10/28/2024 3:32 AM CDT PROCEDURE: XR CHEST 2VW, DATE/TIME OF EXAM: 10/27/2024 11:58 PM, LOCATION [facility] INDICATION: R07.9: Chest pain, unspecified [...] shoulders. > Dictated by Branden Jha MD, (professor of radiology). > Dictated by Mortar Mixer Operator I, Blake Plasencia MD have personally reviewed and interpreted this examination/study. > Interpreting Provider: Blake Plasencia MD on 10/28/2024 3:32 AM Procedure Note Blake Plasencia MD - 10/28/2024 PROCEDURE: XR CHEST 2VW, DATE/TIME OF EXAM: 10/27/2024 11:58 PM, LOCATION [facility] INDICATION: R07.9: Chest pain, unspecified [...] thoracic spine and shoulders. > Dictated by Bradnen hJa MD, (professor of radiology). > Dictated by Mortar Mixer Operator I, Blake Plasencia MD have personally reviewed and interpreted this examination/study. > Interpreting Provider: Blake Plasencia MD on 10/28/2024 3:32 AM Savanna Mcfarlane MD DIAGNOSTIC IMAGING ORDERABLES Final Result * (ABNORMAL) TROPONIN-I HIGH SENSITIVE BASELINE + 1HR (10/27/2024 11:53 PM CDT) Only the most recent of8 resultswithin the time period is included. [facility] Troponin I High Sensitive 72(H) <=35 ng/L 10/28/2024 12:49 AM CDT [facility] Blood BLOOD SPECIMEN / Unknown Venipuncture / Unknown 10/27/2024 11:53 PM CDT 10/28/2024 12:12 AM CDT Savanna Mcfarlane MD LAB - CHEMISTRY ORDERABLES Fi nal Result [address] [address], [place] [phone] * (ABNORMAL) CBC W AUTO DIFFERENTIAL (10/27/2024 11:53 PM CDT) Only the most recent of11 resultswithin the time period is included. [facility] WBC 7.8 4.0 - 10.7 x10E9/L 10/28/2024 12:26 AM [facility] RBC Count 3.31(L) 4.30 - 5.80 x10E12/L 10/28/2024 12:26 AM [facility] Hemoglobin 9.0(L) 13.3 - 17.5 g/dL 10/28/2024 12:26 AM [facility] Hematocrit 27.9(L) 38.7 - 51.1 % 10/28/2024 12:26 AM [facility] MCV 84.3 80.0 - 98.0 fL 10/28/2024 12:26 AM [facility] MCH 27.2 26.7 - 33.6 pg 10/28/2024 12:26 AM [facility] MCHC 32.3 31.7 - 36.3 g/dL 10/28/2024 12:26 AM [facility] RDW-CV 15.9(H) 11.3 - 14.8 % 10/28/2024 12:26 AM [facility] Platelet Count 187 150 - 420 x10E9/L 10/28/2024 12:26 AM [facility] MPV 10.2 7.8 - 11.4 fL 10/28/2024 12:26 AM [facility] Neutrophil % 67.0 41.0 - 74.0 % 10/28/2024 12:26 AM [facility] Lymphocyte % 16.4(L) 17.0 - 47.0 % 10/28/2024 12:26 AM [facility] Monocyte % 14.0(H) 3.0 - 11.0 % 10/28/2024 12:26 AM [facility] Eosinophil % 1.9 0.0 - 7.0 % 10/28/2024 12:26 AM [facility] Basophil % 0.1 0.0 - 1.6 % 10/28/2024 12:26 AM [facility] Immature Granulocytes % 0.6 0.0 - 1.0 % 10/28/2024 12:26 AM [facility] Neutrophil Absolute 5.23 1.60 - 7.50 x10E9/L 10/28/2024 12:26 AM [facility] Lymphocyte Absolute 1.28 1.00 - 4.40 x10E9/L 10/28/2024 12:26 AM [facility] Monocyte Absolute 1.09(H) 0.15 - 1.00 x10E9/L 10/28/2024 12:26 AM [facility] Eosinophil Absolute 0.15 0.00 - 0.60 x10E9/L 10/28/2024 12:26 AM [facility] Basophil Absolute 0.01 0.00 - 0.13 x10E9/L 10/28/2024 12:26 AM [facility] Blood BLOOD SPECIMEN / Unknown Venipuncture / Unknown 10/27/2024 11:53 PM CDT 10/28/2024 12:13 AM CDT us Savanna Mcfarlane MD LAB - HEMATOLOGY ORDERABLES F inal Result [facility] [address] [place] [address], [facility] [phone] * (ABNORMAL) COMPREHENSIVE METABOLIC PANEL (10/27/2024 11:53 PM CDT) Only the most recent of13 resultswithin the time period is included. BUN 34(H) 7 - 26 mg/dL 10/28/2024 12:45 AM [facility] Creatinine 7.86(H) 0.71 - 1.16 mg/dL 10/28/2024 12:45 AM [facility] Sodium 132(L) 136 - 145 mmol/L 10/28/2024 12:45 AM [facility] Potassium 3.5 3.5 - 4.5 mmol/L 10/28/2024 12:45 AM [facility] Chloride 95(L) 98 - 107 mmol/L 10/28/2024 12:45 AM [facility] CO2 25 22 - 29 mmol/L 10/28/2024 12:45 AM [facility] Glucose 104(H) 70 - 99 mg/dL 10/28/2024 12:45 AM [facility] Calcium 8.5 8.4 - 10.2 mg/dL 10/28/2024 12:45 AM [facility] Protein Total 5.6(L) 6.0 - 8.3 g/dL 10/28/2024 12:45 AM [facility] Albumin 2.2(L) 3.4 - 5.0 g/dL 10/28/2024 12:45 AM [facility] Bilirubin Total 0.3 0.2 - 1.2 mg/dL 10/28/2024 12:45 AM [facility] Alkaline Phosphatase 104 40 - 150 U/L 10/28/2024 12:45 AM [facility] ALT 56(H) 5 - 55 U/L 10/28/2024 12:45 AM [facility] AST 48(H) 5 - 34 U/L 10/28/2024 12:45 AM [facility] Anion Gap 12 6 - 16 10/28/2024 12:45 AM [facility] BUN/Creatinine Ratio 4(L) 7 - 23 10/28/2024 12:45 AM [facility] Osmolality Calculated 282 275 - 295 mOsm/kg 10/28/2024 12:45 AM [facility] Albumin/Globulin Ratio 0.6(L) 1.1 - 2.3 10/28/2024 12:45 AM [facility] eGFR by CKD-EPI 7(L) >=90 mL/min/1.7 3 m2 10/28/2024 12:45 AM [facility] Comment:Estimated Glomerular Filtration Rate (eGFR) calculated using the CKD-EPI Creatinine Equation (2020), per the National Kidney Foundation and [place] Society of Nephrology recommendations. Blood BLOOD SPECIMEN / Unknown Venipuncture / Unknown 10/27/2024 11:53 PM CDT 10/28/2024 12:12 AM [facility] us Savanna Mcfarlane MD LAB - CHEMISTRY ORDERABLES Fi nal Result [facility] [address] [place] [address], [facility] [phone] * LIPASE BLOOD (10/27/2024 11:53 PM CDT) Only the most recent of3 resultswithin the time period is included. Lipase 41 8 - 78 U/L 10/28/2024 12:45 AM CDT [facility] Blood BLOOD SPECIMEN / Unknown Venipuncture / Unknown 10/27/2024 11:53 PM CDT 10/28/2024 12:12 AM CDT Narrative [facility] - 10/28/2024 12:45 AM CDT Lipase results from the Matthew Alinity analyzer may not be comparable with other methodologies. Savanna Mcfarlane MD LAB - CHEMISTRY ORDERABLES Fi nal Result [address] [address], [facility] [phone] * HLA ANTIBODY SCREEN LUM CLASS 2 SAB (10/27/2024 2:40 PM CDT) Pathologist [facility] % PRA 0 11/04/2024 4:03 PM CDT [facility] ([facility]) Class 2 LUM SAB Moderate Risk DQ6 11/04/2024 4:03 PM CDT [facility] ([facility]) Class 2 SAB Test Date [id number] 11/04/2024 4:03 PM CDT [facility] ([facility]) Comment: Methodology - Luminex Bead-Based Immunoassay. This test was developed and its performance characteristics determined by the [facility]. It has not been cleared [...] high complexity clinical laboratory testing. CLIA ID# [id number] Performed at: [facility], [address] [place] [id number] Mine Engineering Superintendent: Steven Gonzalez, Ph.D., D([facility]), Blood BLOOD SPECIMEN / Unknown No Charge Blood Draw / Unknown 10/27/2024 2:40 PM CDT 11/01/2024 2:41 PM CDT Alan Davenport MD LAB - BLOOD BANK ORDERABLES F inal Result Performing Organization Address [facility] [[email or web address]] de Phone Number [facility] ([facility]) [address] [place] [address] * HLA ANTIBODY SCREEN LUM CLASS 1 SAB (10/27/2024 2:40 PM CDT) Pathologist [facility] % PRA 0 11/04/2024 4:03 PM CDT [facility] ([facility]) Class 1 SAB Test Date [id number] 11/04/2024 4:03 PM CDT [facility] ([facility]) Comment: Methodology - Luminex Bead-Based Immunoassay. This test was developed and its performance characteristics determined by the [facility]. It has not been cleared [...] high complexity clinical laboratory testing. CLIA ID# [id number] Performed at: [facility], [address] [place] [id number] Mine Engineering Superintendent: Steven Gonzalez, Ph.D., D([facility]), Blood BLOOD SPECIMEN / Unknown No Charge Blood Draw / Unknown 10/27/2024 2:40 PM CDT 11/01/2024 2:41 PM CDT Alan Davenport MD LAB - BLOOD BANK ORDERABLES F inal Result Performing Organization Address [facility] Co de Phone Number [facility] ([facility]) [address] [place] [address] * (ABNORMAL) PTH INTACT ([facility]) (10/21/2024 1:11 PM CDT) Only the most recent of2 resultswithin the time period is included. PTH Intact 316.8(H) 8.0 - 77.0 pg/mL 10/21/2024 1:56 PM CDT [facility] Blood BLOOD SPECIMEN / Unknown Lab Venipuncture / Unknown 10/21/2024 1:11 PM CDT 10/21/2024 1:23 PM CDT Becky Wilson MD LAB - CHEMISTRY ORDERABLES Fin al Result [place] [id number] [place] [address], [facility] [phone] * LAB MISC TEST (10/21/2024 1:11 PM CDT) Test Name PHOSPHO-TAU 217 PLASMA 10/25/2024 12:29 PM CDT [facility] Test Result See Scanned Report 10/25/2024 12:29 PM CDT [facility] Comment Ref Lab [place] 10/25/2024 12:29 PM CDT [facility] Blood BLOOD SPECIMEN / Unknown Lab Venipuncture / Unknown 10/21/2024 1:11 PM CDT 10/21/2024 1:15 PM CDT Becky Wilson MD LAB SEND OUT Final Result [facility] [address] [place] [address] * MAGNESIUM BLOOD (10/21/2024 1:11 PM CDT) Only the most recent of14 resultswithin the time period is included. Magnesium 1.6 1.6 - 2.6 mg/dL 10/21/2024 1:49 PM CDT [facility] Blood BLOOD SPECIMEN / Unknown Lab Venipuncture / Unknown 10/21/2024 1:11 PM CDT 10/21/2024 1:20 PM CDT Becky Wilson MD LAB - CHEMISTRY ORDERABLES Fin al Result [address] [address], [facility] [phone] * AMMONIA (10/21/2024 1:11 PM CDT) Ammonia 30 <=72 umol/L 10/21/2024 1:32 PM CDT [facility] Blood BLOOD SPECIMEN / Unknown Lab Venipuncture / Unknown 10/21/2024 1:11 PM CDT 10/21/2024 1:15 PM CDT Becky Wilson MD LAB - CHEMISTRY ORDERABLES Fin al Result Performing Organization Address [facility] Co de Phone Number [address] [address], [facility] [phone] * CT Head Wo Contrast (10/19/2024 3:03 PM CDT) Only the most recent of4 resultswithin the time period is included. Anatomical Region Laterality Modality Head Computed Tomogra phy 10/19/2024 3:11 PM CDT Impressions 10/19/2024 3:41 PM CDT IMPRESSION: 1.No acute intracranial hemorrhage, territorial infarct, or significant mass effect. Report dictated by Saroj Linda MD, MD (professor of radiology). > Dictated by Mortar Mixer Operator I, Raymundo Hanson MD have personally [...] Report dictated by Saroj Linda MD, MD (professor of radiology). > Dictated by Mortar Mixer Operator I, Raymundo Hanson MD have personally reviewed and interpreted this examination/study. > Interpreting Provider: Raymundo Hanson MD on 10/19/2024 3:41 PM [facility]-C CT ORDERABLES Final Result * EKG 12-LEAD (10/19/2024 2:21 PM CDT) Only the most recent of6 resultswithin the time period is included. Ventricular Rate 64 BPM [facility] MUSE Atrial Rate 64 BPM [facility] MUSE P-R Interval 146 ms [facility] MUSE QRS Duration ms 96 ms [facility] MUSE Q-T Interval ms 494 ms [facility] MUSE QTC Calculation (Bezet) 509 ms [facility] [facility] MUSE Calculated P [place] 69 degrees SL MUSE Calculated R [place] -63 degrees SL MUSE Calculated T [place] -90 degrees [facility] MUSE Interpretation EKG NORMAL SINUS RHYTHM LEFT ANTERIOR FASCICULAR BLOCK T WAVE ABNORMALITY, CONSIDER INFEROLATERAL ISCHEMIA PROLONGED QT ABNORMAL ECG . Confirmed by TSERING GOTTLIEB, DOUG ([id number]) on 10/23/2024 11:38:28 PM [facility] MUSE 10/19/2024 2:2 1 PM CDT 10/23/2024 11:38 PM CDT [facility] Marilou RIOJASC ECG ORDERABLES Edite d Result - Final [facility] MUSE * (ABNORMAL) B-TYPE NATRIURETIC PEPTIDE (10/17/2024 7:33 PM CDT) Only the most recent of3 resultswithin the time period is included. BNP 471(H) <100 pg/mL 10/17/2024 10:07 PM CDT [facility] Comment: A decision threshold of [...] LAB - CHEMISTRY ORDERABLES Fi nal Result [facility]ORATORY [id number] [place] [address], [facility] [phone] * XR CHEST 1VW PORTABLE (10/09/2024 7:27 PM CDT) Only the most recent of2 resultswithin the time period is included. Anatomical Region Laterality Modality Chest Digital Radiogra phy 10/09/2024 10:4 9 PM CDT Narrative 10/10/2024 1:17 AM CDT PROCEDURE: XR CHEST 1VW PORTABLE, DATE/TIME OF EXAM: 10/09/2024 7:27 PM, LOCATION [facility] INDICATION: R06.02: Short of breath on exertion ADDITIONAL CLINICAL INFORMATION: Ordering Provider Reason For Exam: r/o effusion, pneumonia Technologist Note: Additional: COMPARISON: Chest x-ray from 10/07/2024. FINDINGS/IMPRESSION: There is no focal consolidation, pleural effusion, or pneumothorax.The cardiomediastinal silhouette is normal. No displaced fractures identified. Hardware projecting over thoracic spine. > Dictated by Otis Bocanegra MD (professor of radiology). > Dictated by Mortar Mixer Operator I, Blake Plasencia MD have personally reviewed and interpreted this examination/study. > Interpreting Provider: Blake Plasencia MD on 10/10/2024 1:17 AM Procedure Note Blake Plasencia MD - 10/10/2024 PROCEDURE: XR CHEST 1VW PORTABLE, DATE/TIME OF EXAM: 10/09/2024 7:27PM, LOCATION [facility] INDICATION: R06.02: Short of breath on exertion ADDITIONAL CLINICAL INFORMATION: Ordering Provider Reason For Exam: r/o effusion, pneumonia Technologist Note: Additional: COMPARISON: Chest x-ray from 10/07/2024. FINDINGS/IMPRESSION: There is no focal consolidation, pleural effusion, or pneumothorax.The cardiomediastinal silhouette is normal. No displaced fracturesidentified. Hardware projecting over thoracic spine. > Dictated by Otis Bocanegra MD (professor of radiology). > Dictated by Mortar Mixer Operator I, Blake Plasencia MD have personally reviewed and interpreted this examination/study. > Interpreting Provider: Blake Plasencia MD on 10/10/2024 1:17 AM us Anjali Avelar IRON WORKER APPRENTICE-QA TEST ANALYST DIAGNOSTIC IMAGING O RDERABLES Final Result * (ABNORMAL) BLOOD GASES ABBEY + COOX PANEL (10/09/2024 4:39 PM CDT) Only the most recent of2 resultswithin the time period is included. pH Venous 7.41 7.32 - 7.42 pH 10/09/2024 5:04 PM [facility] pO2 Venous 34(L) 35 - 40 mmHg 10/09/2024 5:04 PM [facility] pCO2 Venous 44 40 - 50 mmHg 10/09/2024 5:04 PM [facility] HCO3 Venous 27.9 20 - 30 mmol/L 10/09/2024 5:04 PM [facility] Base Excess Venous 2.9(H) -2.0 - 2.0 mmol/L 10/09/2024 5:04 PM [facility] Oxyhemoglobin Venous 56.8 % 09/18 5:04 PM [facility] Comment:A^Absorbance Error Deoxyhemoglobin (HHB) Venous % 42.6 % 10/09/2024 5:04 PM [facility] Comment:A^Absorbance Error Methemoglobin <0.8 0.0 - 2.0 % 10/09/2024 5:04 PM [facility] Comment:A^Absorbance Error Carboxyhemoglobin 0.6 0.0 - 2.0 % 2024 5:04 PM [facility] Comment:A^Absorbance Error O2 Content Venous 7.7 Interpret within clinical context ml/dL 10/09/2024 5:04 PM CDT [facility] Hemoglobin by COOX 9.6(L) 12.0 - 17.6 g/dL 10/09/2024 5:04 PM CDT [facility] Comment:A^Absorbance Error O2 Saturation Venous 57(L) >=70 % 09/18 5:04 PM CDT [facility] Comment:A^Absorbance Error FI O2 Mixed Venous 21.0 % 2024 5:04 PM CDT [facility] Blood BLOOD SPECIMEN / Unknown Venipuncture / Unknown 10/09/2024 4:39 PM CDT 10/09/2024 4:56 PM CDT Narrative [facility] - 10/09/2024 5:04 PM CDT Carboxyhemoglobin Normal Concentration: Non-smokers: 0-2%; Smokers: 0-9%; Toxic: >20% Anjali Avelar [facility] LAB - BLOOD GASES OR DERABLES Final Result [address] [address], [facility] [phone] * PHOSPHORUS BLOOD (10/09/2024 4:39 PM CDT) Only the most recent of8 resultswithin the time period is included. [facility] Phosphorus 4.9 2.8 - 5.1 mg/dL 10/09/2024 5:29 PM CDT [facility] Blood BLOOD SPECIMEN / Unknown Venipuncture / Unknown 10/09/2024 4:39 PM CDT 10/09/2024 4:58 PM CDT Anjali Avelar IRON WORKER APPRENTICEKIN[facility] LAB - CHEMISTRY ORDE RABLES Final Result Performing Organization Address City/[facility]/ZIP Co de Phone Number [address] [address], [place] [phone] * (ABNORMAL) URINALYSIS REFLEX MICROSCOPIC REFLEX CULTURE (10/07/2024 6:16 PM CDT) Color UA Yellow Yellow, Straw 10/07/2024 6:39 PM [facility] Clarity UA Ex. Turbid(A) Clear 10/07/2024 6:39 PM [facility] Glucose UA Normal Normal 10/07/2024 6:39 PM [facility] Bilirubin UA Negative Negative 10/07/2024 6:39 PM [facility] Ketone UA Negative Negative 10/07/2024 6:39 PM [facility] Specific [place] UA 1.015 1.005 - 1.030 10/07/2024 6:39 PM [facility] Blood UA 3+(A) Negative 10/07/2024 6:39 PM [facility] pH UA 6.0 5.0 - 8.0 10/07/2024 6:39 PM [facility] Protein UA 2+(A) Negative 10/07/2024 6:39 PM [facility] Urobilinogen UA Normal Normal mg/dL 10/07/2024 6:39 PM [facility] Nitrite UA Negative Negative 10/07/2024 6:39 PM [facility] Leukocyte Esterase UA 500 MOLLY/uL(A) Negative 10/07/2024 6:39 PM [facility] RBC UA 51-100(A) 0 - 5 # /hpf 10/07/2024 6:39 PM [facility] WBC UA >100(A) 0 - 5 # /hpf 10/07/2024 6:39 PM [facility] Bacteria UA 2+(A) None Seen 10/07/2024 6:39 PM [facility] Squamous Epithelial Cells None Seen 0 - 5 /hpf 10/07/2024 6:39 PM [facility] Transitional Epithelial Cell UA 0-2(A) None Seen /HPF 10/07/2024 6:39 PM [facility] Budding Yeast Moderate(A) None seen /hpf 10/07/2024 6:39 PM [facility] Reflex Status Culture to follow 10/07/2024 6:39 PM [facility] Urine URINE SPECIMEN OBTAINED VIA [employer]IN[facility] CATHETER / Unknown Collection / Unknown 10/07/2024 6:16 PM CDT 10/07/2024 6:19 PM CDT Narrative [facility] - 10/07/2024 6:39 PM CDT Richard Sylvester MD LAB - URINALYSIS ORDERABLES Kenna haider Result [facility] [address] [place] [address], [facility] [phone] * (ABNORMAL) CULTURE URINE (10/07/2024 6:16 PM CDT) Culture Urine 50,000-100,000 CFU/mL Klebsiella pneumoniae(A) MUSHTAQ 10/09/2024 5:54 AM CDT [facility] Urine URINE SPECIMEN OBTAINED VIA [employer] CATHETER / Unknown Collection / Unknown 10/07/2024 6:16 PM CDT 10/07/2024 6:19 PM CDT Narrative [facility]CRO[facility]OLOG[facility] - 10/09/2024 5:54 AM CDT Organism [...] LAB - MICROBIOLOGY ORDERABLES Fi nal Result [facility] [address] [place] [address], [facility] [phone] * VAS Arterial Multilevel Le (10/05/2024 12:24 PM CDT) Anatomical Region Laterality Modality Intravascular Ul trasound 10/05/2024 11:3 4 AM CDT Narrative Procedure Note Elroy Holcomb MD - 10/05/2024 Gyu Messina MD VASCULAR LAB ORDERABLES Edit ed Result - Final * (ABNORMAL) HEMOGLOBIN A1C (09/25/2024 5:06 AM CDT) Hemoglobin A1c 5.8(H) <=5.6 % 09/25/2024 8:19 AM CDT [facility] Estimated Average Glucose 120 mg/dL 09/25/2024 8:19 AM CDT [facility] Comment: HbA1c Interpretation: Normal : < 5.7% Pre-diabetes: 5.7-6.4% Diabetes: Equal to or greater than 6.5% Test results diagnostic of diabetes should be repeated for confirmation. Treatment target values recommended by ADA and other clinical organizations should be used to evaluate metabolic control in patients. Reference: [place] Diabetes Association, Standards of Care in Diabetes [...] - CHEMISTRY ORDERABLES F inal Result [facility] [address] [place] [address], [facility] [phone] * (ABNORMAL) RENAL FUNCTION PANEL (09/24/2024 7:53 PM CDT) Only the most recent of3 resultswithin the time period is included. BUN 42(H) 7 - 26 mg/dL 09/24/2024 8:47 PM [facility] Creatinine 12.22(H) 0.71 - 1.16 mg/dL 09/24/2024 8:47 PM [facility] Sodium 136 136 - 145 mmol/L 09/24/2024 8:47 PM [facility] Potassium 3.9 3.5 - 4.5 mmol/L 09/24/2024 8:47 PM [facility] Chloride 97(L) 98 - 107 mmol/L 09/24/2024 8:47 PM [facility] CO2 24 22 - 29 mmol/L 09/24/2024 8:47 PM [facility] Glucose 93 70 - 99 mg/dL 09/24/2024 8:47 PM [facility] Albumin 1.8(L) 3.4 - 5.0 g/dL 09/24/2024 8:47 PM [facility] Calcium 8.4 8.4 - 10.2 mg/dL 09/24/2024 8:47 PM [facility] Phosphorus 7.0(H) 2.8 - 5.1 mg/dL 09/24/2024 8:47 PM [facility] Anion Gap 15 6 - 16 09/24/2024 8:47 PM [facility] BUN/Creatinine Ratio 3(L) 7 - 23 09/24/2024 8:47 PM [facility] Osmolality Calculated 292 275 - 295 mOsm/kg 09/24/2024 8:47 PM CDT [facility] eGFR by CKD-EPI 4(L) >=90 mL/min/1.7 3 m2 09/24/2024 8:47 PM CDT [facility] Comment:Estimated Glomerular Filtration Rate (eGFR) calculated using the CKD-EPI Creatinine Equation (2020), per the National Kidney Foundation and [place] Society of Nephrology recommendations. Blood BLOOD SPECIMEN / Unknown Lab Venipuncture / Unknown 09/24/2024 7:53 PM CDT 09/24/2024 8:15 PM CDT us Guy Messina MD LAB - CHEMISTRY ORDERABLES F inal Result Performing Organization Address City/[facility]/ZIP Co de Phone Number [address] [address], [facility] [phone] * TSH REFLEX FREE T4 (09/24/2024 12:02 PM CDT) TSH 1.567 0.350 - 4.940 uIU/mL 09/24/2024 12:57 PM CDT [facility] Blood BLOOD SPECIMEN / Unknown 09/24/2024 12:02 PM CDT 09/24/2024 12:18 PM CDT us Alexis Rodrigez III, MD LAB - CHEMISTRY ORDERAB LES Final Result Performing Organization Address [facility]/ZIP Co de Phone Number [address] [address], [facility] [phone] * (ABNORMAL) VITAMIN B1 (09/24/2024 12:02 PM CDT) Vitamin B1 Whole Blood 205(H) 70 - 180 nmol/L 09/27/2024 7:16 PM CDT [facility] ([facility]) Comment: INTERPRETIVE INFORMATION: Vitamin B1, Whole Blood This assay measures the concentration of thiamine diphosphate (TDP), the primary active form of vitamin B1. Approximately 90 percent of vitamin B1 present in whole blood is TDP. Thiamine and thiamine monophosphate, which comprise the remaining 10 percent, are not measured. This test was developed and its performance characteristics determined by [employer]. It has not been cleared or approved by the US Food and Drug Administration. This test was performed in a CLIA certified laboratory and is intended for clinical purposes. Performed By: [facility] [employer] [address] [place] [address] Shingle Bolt Cutter: Mk Egan MD, PhD CLIA Number: [id number] Blood BLOOD SPECIMEN / Unknown 09/24/2024 12:02 PM CDT 09/24/2024 12:11 PM CDT us Alexis Rodrigez III, MD LAB - CHEMISTRY ORDERAB LES Final Result Performing Organization Address [facility]/ZIP Co de Phone Number [facility] ([facility]) [address] [place] [address] * (ABNORMAL) VITAMIN B12 (09/24/2024 12:02 PM CDT) Vitamin B12 1,151(H) 213 - 816 pg/mL 09/24/2024 12:57 PM CDT [facility] Blood BLOOD SPECIMEN / Unknown 09/24/2024 12:02 PM CDT 09/24/2024 12:18 PM CDT us Alexis Rodrigez III, MD LAB - CHEMISTRY ORDERAB LES Final Result Performing Organization Address [facility]/ZIP Co de Phone Number [address] [address], [facility] [phone] * (ABNORMAL) TROPONIN-I HIGH SENSITIVE (09/24/2024 5:08 AM CDT) Troponin I High Sensitive 83(H) <=35 ng/L 09/24/2024 6:10 AM CDT [facility] Blood BLOOD SPECIMEN / Unknown Lab Venipuncture / Unknown 09/24/2024 5:08 AM CDT 09/24/2024 5:28 AM CDT us Jennifer Winn MD LAB - CHEMISTRY ORDERABLES F inal Result [facility] [address] [place] [address], [facility] [phone] * CT Lumbar Spine Wo Contrast (09/23/2024 [...] pelvis. Report dictated by Branden Jha MD (professor of radiology) 09/23/2024 5:45 PM. > Dictated by Mortar Mixer Operator I, Jana Clark MD have personally reviewed and interpreted this examination/study. > Interpreting Provider: Jana Clark MD on 09/23/2024 6:29 PM Narrative 09/23/2024 6:29 PM CDT PROCEDURE: CT HEAD WO CONTRAST, CT LUMBAR SPINE WO CONTRAST, CT THORACIC SPINE WO CONTRAST, CT CERVICAL SPINE WO CONTRAST, DATE/TIME OF EXAM: 09/23/2024 5:32 PM, LOCATION [facility] INDICATION: W19.XXXA: Fall, initial encounter R41.82: Altered mental status, unspecified altered mental status type ADDITIONAL CLINICAL INFORMATION: Ordering Provider Reason For Exam: r/o bleed, fx (accession [id number]), r/o fx (accession [id number]), r/o fx (accession [id number]), r/o fx (accession [id number]) Technologist Note: None. Additional: 69 year old male H as noted below who presents with fall. [...] DATE/TIME OF EXAM: 09/23/2024 5:32 PM, LOCATION [facility] INDICATION: W19.XXXA: Fall, initial encounter R41.82: Altered mental status, unspecified altered mental status type ADDITIONAL CLINICAL INFORMATION: Ordering Provider Reason For Exam: r/o bleed, fx (accession [id number]), r/o fx (accession [id number]), r/o fx (accession [id number]), r/o fx (accession [id number]) Technologist Note: None. Additional: 69 year old [...] pelvis. Report dictated by Branden Jha MD (professor of radiology) 09/23/2024 5:45 PM. > Dictated by Mortar Mixer Operator Jana Leigh MD have personally reviewed [...] pelvis. Report dictated by Branden Jha MD (professor of radiology) 09/23/2024 5:45 PM. > Dictated by Mortar Mixer Operator Jana Leigh MD have personally reviewed and interpreted this examination/study. > Interpreting Provider: Jana Clark MD on 09/23/2024 6:29 PM Narrative 09/23/2024 6:29 PM CDT PROCEDURE: CT HEAD WO CONTRAST, CT LUMBAR SPINE WO CONTRAST, CT THORACIC SPINE WO CONTRAST, CT CERVICAL SPINE WO CONTRAST, DATE/TIME OF EXAM: 09/23/2024 5:32 PM, LOCATION [facility] INDICATION: W19.XXXA: Fall, initial encounter R41.82: Altered mental status, unspecified altered mental status type ADDITIONAL CLINICAL INFORMATION: Ordering Provider Reason For Exam: r/o bleed, fx (accession [id number]), r/o fx (accession [id number]), r/o fx (accession [id number]), r/o fx (accession [id number]) Technologist Note: None. Additional: 69 year old [...] DATE/TIME OF EXAM: 09/23/2024 5:32 PM, LOCATION [facility] INDICATION: W19.XXXA: Fall, initial encounter R41.82: Altered mental status, unspecified altered mental status type ADDITIONAL CLINICAL INFORMATION: Ordering Provider Reason For Exam: r/o bleed, fx (accession [id number]), r/o fx (accession [id number]), r/o fx (accession [id number]), r/o fx (accession [id number]) Technologist Note: None. Additional: 69 year old [...] pelvis. Report dictated by Branden Jha MD (professor of radiology) 09/23/2024 5:45 PM. > Dictated by Mortar Mixer Operator I, Jana Clark MD have personally reviewed and interpretedthis examination/study. > Interpreting Provider: Jana Clark MD on 09/23/2024 6:29 [address] ORDERABLES Final Result * CT CERVICAL [...] pelvis. Report dictated by Branden Jha MD (professor of radiology) 09/23/2024 5:45 PM. > Dictated by Mortar Mixer Operator I, Jana Clark MD have personally reviewed and interpreted this examination/study. > Interpreting Provider: Jana Clark MD on 09/23/2024 6:29 PM Narrative 09/23/2024 6:29 PM CDT PROCEDURE: CT HEAD WO CONTRAST, CT LUMBAR SPINE WO CONTRAST, CT THORACIC SPINE WO CONTRAST, CT CERVICAL SPINE WO CONTRAST, DATE/TIME OF EXAM: 09/23/2024 5:32 PM, LOCATION [facility] INDICATION: W19.XXXA: Fall, initial encounter R41.82: Altered mental status, unspecified altered mental status type ADDITIONAL CLINICAL INFORMATION: Ordering Provider Reason For Exam: r/o bleed, fx (accession [id number]), r/o fx (accession [id number]), r/o fx (accession [id number]), r/o fx (accession [id number]) Technologist Note: None. Additional: 69 year old [...] DATE/TIME OF EXAM: 09/23/2024 5:32 PM, LOCATION [facility] INDICATION: W19.XXXA: Fall, initial encounter R41.82: Altered mental status, unspecified altered mental status type ADDITIONAL CLINICAL INFORMATION: Ordering Provider Reason For Exam: r/o bleed, fx (accession [id number]), r/o fx (accession [id number]), r/o fx (accession [id number]), r/o fx (accession [id number]) Technologist Note: None. Additional: 69 year old male PMH as noted below who presents with fall. The patient is AO x 3 but slow to speech. Present is his today. Patient's states that he has been acting like this since the of August. States he had a history [...] pelvis. Report dictated by Branden Jha MD (professor of radiology) 09/23/2024 5:45 PM. > Dictated by Mortar Mixer Operator I, Jana Clark MD have personally [...] erosion. Report dictated by Branden Jha MD, (professor of radiology). > Dictated by Mortar Mixer Operator I, Nicole Bernabe MD have personally reviewed and interpreted this examination/study. > Interpreting Provider: Nicole Bernabe MD on 09/24/2024 9:17 AM Narrative 09/24/2024 9:17 AM CDT PROCEDURE: XR FOOT LEFT 3VW OR MORE, DATE/TIME OF EXAM: 09/23/2024 5:34 PM, LOCATION [facility] INDICATION: W19.XXXA: Fall, initial encounter [...] MORE, DATE/TIME OF EXAM: 09/23/2024 5:34PM, LOCATION [facility] INDICATION: W19.XXXA: Fall, initial encounter [...] erosion. Report dictated by Branden Jha MD, (professor of radiology). > Dictated by Mortar Mixer Operator I, Nicole Bernabe MD have personally reviewed and interpreted this examination/study. > Interpreting Provider: Nicole Bernabe MD on 09/24/2024 9:17 AM us Moon Lewis PA-C DIAGNOSTIC IMAGING ORDERABLES F inal Result * (ABNORMAL) C-REACTIVE PROTEIN (09/23/2024 4:52 PM CDT) Only the most recent of2 resultswithin the time period is included. C-Reactive Protein 1.6(H) <=0.5 mg/dL 09/23/2024 5:42 PM CDT [facility] Blood BLOOD SPECIMEN / Unknown Venipuncture / Unknown 09/23/2024 4:52 PM CDT 09/23/2024 4:56 PM CDT Moon Lewis PA-C LAB - CHEMISTRY ORDERABLES Kenna l Result Performing Organization Address City/[facility]/ZIP Co de Phone Number [address] [address], [facility] [phone] * (ABNORMAL) ERYTHROCYTE SEDIMENTATION RATE (09/23/2024 4:52 PM CDT) Only the most recent of2 resultswithin the time period is included. Erythrocyte Sedimentation Rate Westergren 116(H) 0 - 20 MM/HR 09/23/2024 5:21 PM CDT [facility] Blood BLOOD SPECIMEN / Unknown Venipuncture / Unknown 09/23/2024 4:52 PM CDT 09/23/2024 5:05 PM CDT Moon Lewis PA-C LAB - HEMATOLOGY ORDERABLES Fin al Result Performing Organization Address City/[facility]/ZIP Co de Phone Number [address] [address], [place] [phone] * (ABNORMAL) DIFFERENTIAL MANUAL (09/23/2024 4:52 PM CDT) Only the most recent of3 resultswithin the time period is included. Neutrophil % 78(H) 41 - 74 % 09/23/2024 5:33 PM CDT [facility] Lymphocyte % 10(L) 17 - 47 % 09/23/2024 5:33 PM CDT [facility] Monocyte % 10 3 - 11 % 09/23/2024 5:33 PM CDT [facility] Eosinophil % 1 0 - 7 % 09/23/2024 5:33 PM CDT [facility] Metamyelocyte % 1(H) 0% % 5:33 PM CDT [facility] Neutrophil Absolute 8.66(H) 1.60 - 7.50 x10E9/L 09/23/2024 5:33 PM T [facility] Lymphocyte Absolute 1.11 1.00 - 4.40 x10E9/L 09/23/2024 5:33 PM T [facility] Monocyte Absolute 1.11(H) 0.15 - 1.00 x10E9/L 09/23/2024 5:33 PM T [facility] Eosinophil Absolute 0.11 0.00 - 0.60 x10E9/L 09/23/2024 5:33 PM [facility] RBC Morphology REVIEWED 09/23/2024 5:33 PM [facility] Microcytosis MODERATE(A) (none) 09/23/2024 5:33 PM [facility] Blood BLOOD SPECIMEN / Unknown Venipuncture / Unknown 09/23/2024 4:52 PM CDT 09/23/2024 5:05 PM CDT Moon Lewis PA-C LAB - HEMATOLOGY ORDERABLES Fin al Result Performing Organization Address [facility]/State/ZIP Co de Phone Number [facility] [address] [place] [address], [facility] [phone] * (ABNORMAL) CBC W/O DIFFERENTIAL (09/16/2024 1:01 AM CDT) Only the most recent of10 resultswithin the time period is included. WBC 9.3 4.0 - 10.7 x10E9/L 09/16/2024 1:43 AM [facility] RBC Count 3.37(L) 4.30 - 5.80 x10E12/L 09/16/2024 1:43 AM [facility] Hemoglobin 9.5(L) 13.3 - 17.5 g/dL 09/16/2024 1:43 AM [facility] Hematocrit 28.3(L) 38.7 - 51.1 % 09/16/2024 1:43 AM CDT [facility] MCV 84.0 80.0 - 98.0 fL 09/16/2024 1:43 AM CDT [facility] MCH 28.2 26.7 - 33.6 pg 09/16/2024 1:43 AM CDT [facility] MCHC 33.6 31.7 - 36.3 g/dL 09/16/2024 1:43 AM T [facility] RDW-CV 15.7(H) 11.3 - 14.8 % 09/16/2024 1:43 AM T [facility] Platelet Count 205 150 - 420 x10E9/L 09/16/2024 1:43 AM T [facility] MPV 10.3 7.8 - 11.4 fL 09/16/2024 1:43 AM CDT [facility] Blood BLOOD SPECIMEN / Unknown Lab Venipuncture / Unknown 09/16/2024 1:01 AM CDT 09/16/2024 1:40 AM CDT us Alexis Rodrigez III, MD LAB - HEMATOLOGY ORDERA BLES Final Result Performing Organization Address City/[facility]/ZIP Co de Phone Number [address] [address], [facility] [phone] * VANCOMYCIN LEVEL RANDOM (09/15/2024 4:10 PM CDT) Only the most recent of3 resultswithin the time period is included. Vancomycin Random 31.2 Therapeutic Ranges not established for random specimens ug/mL 09/15/2024 6:00 PM CDT [facility] Blood BLOOD SPECIMEN / Unknown Lab Venipuncture / Unknown 09/15/2024 4:10 PM CDT 09/15/2024 4:51 PM CDT Narrative [facility] - 09/15/2024 6:00 PM CDT See institution protocol. us Aureliano Pierce MD LAB - CHEMISTRY ORDERAB LES Final Result [address] [address], [place] [phone] * LACTIC ACID BLOOD (09/14/2024 3:32 PM CDT) Only the most recent of4 resultswithin the time period is included. Pathologist [facility] Lactic Acid-Stat 2.0 <=2.0 mmol/L 09/14/2024 4:17 PM CDT [facility] Blood BLOOD SPECIMEN / Unknown Lab Venipuncture / Unknown 09/14/2024 3:32 PM CDT 09/14/2024 3:51 PM CDT us Alexis Rodrigez III, MD LAB - CHEMISTRY ORDERAB LES Final Result Performing Organization Address [facility] Co de Phone Number [address] [address], [facility] [phone] * (ABNORMAL) HGB HCT PANEL (09/14/2024 1:24 PM CDT) Only the most recent of2 resultswithin the time period is included. [facility] Hemoglobin 8.7(L) 13.3 - 17.5 g/dL 09/14/2024 1:41 PM CDT [facility] Hematocrit 25.6(L) 38.7 - 51.1 % 09/14/2024 1:41 PM CDT [facility] Blood BLOOD SPECIMEN / Unknown Venipuncture / Unknown 09/14/2024 1:24 PM CDT 09/14/2024 1:30 PM CDT us Alexis Rodrigez III, MD LAB - HEMATOLOGY ORDERA BLES Final Result [address] [address], [place] [phone] * PATHOLOGY TISSUE (09/14/2024 11:45 AM CDT) [facility] Case Report Surgical Pathology Report Case: [id number] Authorizing Provider: Elroy Holcomb MD Collected: 09/14/2024 11:45 AM Ordering Location: [facility] RITO OP Received: 09/14/2024 12:47 PM Pathologist: Charmaine Myrick MD Specimen: Toe, Left, Left Great Toe 09/16/2024 11:40 AM [facility] Final Diagnosis Toe, left great, amputation (A): - Skin ulceration and necrosis - Acute osteomyelitis - Bone margin negative for acute inflammation - Skin and soft tissue margin appears viable 09/16/2024 11:40 AM [facility] at 1140 CDT Microscopic Description and Comment Microscopic examination substantiates the diagnosis. 09/16/2024 11:40 AM [facility] Clinical History The patient is a 69-year-old man with first toe dry gangrene and history of PAD. 09/16/2024 11:40 AM [facility] Gross Description The [...] hemorrhage. There are no additional gross lesions. Dining Room Supervisor sections are submitted as follows: A1-skin and soft tissue to resection margin, medial and dorsal surfaces A2-bony resection margin, decalcified A3-partial proximal cross-section with surrounding mummification, decalcified IKD 09/16/2024 11:40 AM [facility] Pathologist Location at [facility] 09/16/2024 11:40 AM [facility] Disclaimer The performance characteristics of all immunohistochemical and indirect immunofluorescence stains (if any) cited in this report were determined by the Histopathology Laboratory of [facility]. Some of these tests were developed [...] attending (teaching) pathologist. 09/16/2024 11:40 AM CDT [facility] Embedded Images 09/16/2024 11:40 AM CDT [facility] Amputation, Traumatic (Gross Only) (Toe, Left) 09/14/2024 11:45 AM CDT 09/14/2024 12:47 PM CDT Comment:Pre-op diagnosis: Toe gangrene (HCC) [I96] us Elroy Holcomb MD LAB - PATHOLOGY/CYTOLOGY O RDERABLES Final Result Performing Organization Address City/State/[facility] Co ri Phone Number [facility] [address] [phone] * Peripheral Nerve Block (09/14/2024 10:38 AM [...] fungus isolated MUSHTAQ 10/11/2024 8:05 AM CDT [facility] Fungus Stain No yeast or hyphae seen 10/11/2024 8:05 AM CDT [facility] Microbiology PERITONEAL DIALYSATE SPECIMEN / Unknown Collection / Unknown 09/13/2024 8:08 PM CDT 09/13/2024 8:10 PM CDT us Alexis Rodrigez III, MD LAB - MICROBIOLOGY PK ZENG Final Result [facility] [address] [place] [address], [facility] [phone] * DIFFERENTIAL MANUAL FLUID (09/13/2024 8:08 PM CDT) Fluid Source Peritoneal 09/13/2024 9:03 PM CDT [facility] Body Fluid Total Cell Count 100 x10E6/L 09/13/2024 9:03 PM CDT [facility] Neutrophils Fluid Percent 11 % 09/13/2024 9:03 PM CDT [facility] Lymphocytes Fluid Percent 6 % 09/13/2024 9:03 PM CDT [facility] Macrophages Fluid Percent 79 % 09/13/2024 9:03 PM CDT [facility] Mesothelial Cells Fluid Percent 4 % 09/13/2024 9:03 PM CDT [facility] Fluid PERITONEAL FLUID / Unknown Collection / Unknown 09/13/2024 8:08 PM CDT 09/13/2024 8:10 PM CDT Narrative [facility] - 09/13/2024 9:03 PM CDT No reference ranges established for body fluid differential cell counts. The test results must be integrated into the clinical context for interpretation. Alexis Rodrigez III, MD LAB - BODY FLUID ORDERA BLES Final Result [facility] [address] [place] [address], [place] [phone] * CULTURE FLUID+GRAM STAIN (09/13/2024 8:08 PM CDT) Culture No growth MUSHTAQ 09/17/2024 12:38 AM CDT [facility] Gram Stain Light Polymorphonuclear cells 09/17/2024 12:38 AM CDT [facility] Gram Stain No organisms seen 025 12:38 AM CDT [facility] Other PERITONEAL DIALYSATE SPECIMEN / Unknown Collection / Unknown 09/13/2024 8:08 PM CDT 09/13/2024 8:10 PM CDT Alexis Rodrigez III, MD LAB - MICROBIOLOGY ORDE RABADELFO Final Result [facility] [address] [place] [address], [facility] [phone] * CULTURE ANAEROBE (09/13/2024 8:08 PM CDT) Culture No anaerobic organisms isolated MUSHTAQ 09/19/2024 8:26 AM CDT [facility] Microbiology PERITONEAL DIALYSATE SPECIMEN / Unknown Collection / Unknown 09/13/2024 8:08 PM CDT 09/13/2024 8:11 PM CDT us Alexis Rodrigez III, MD LAB - MICROBIOLOGY PK ZENG Final Result Performing Organization Address [facility]/ZIP Co de Phone Number [facility] [address] [place] [address], [facility] [phone] * CELL COUNT W DIFFERENTIAL FLUID (09/13/2024 8:08 PM CDT) Fluid Source Peritoneal 09/13/2024 9:03 PM CDT [facility] Fluid Appearance CLEAR 09/13/2024 9:03 PM CDT [facility] Fluid Color YELLOW 09/13/2024 9:03 PM CDT [facility] Total Nucleated Cells Fluid 279 Reference Range Not Established x10E6/L 09/13/2024 9:03 PM CDT [facility] RBC Count Fluid <2,000 Reference Range Not Established x10E6/L 09/13/2024 9:03 PM CDT [facility] Fluid PERITONEAL FLUID / Unknown Collection / Unknown 09/13/2024 8:08 PM CDT 09/13/2024 8:10 PM CDT Narrative [facility] - 09/13/2024 9:03 PM CDT No reference ranges established for body fluid cell counts. Any reference ranges provided are derived from published literature. The test results must be integrated into the clinical context for interpretation. us Alexis Rodrigez III, MD LAB - BODY FLUID ORDERA BLES Final Result Performing Organization Address [facility] Co de Phone Number [facility] [address] [place] [address], [place] [phone] * VAS Bilateral Venous Duplex Le (09/13/2024 4:34 PM CDT) Anatomical Region Laterality Modality Lower Extremity Ultrasound 09/13/2024 4:18 PM CDT Narrative Procedure Note Lalit Castanon MD - 09/13/2024 us Alexis Rodrigez III, MD VASCULAR LAB ORDERABLES Edited Result - Final * SARS-COV-2 (COVID-19) RAPID (09/13/2024 6:02 AM CDT) COVID-19 PCR Not detected Not detected 09/14/19 6:36 AM CDT [facility] Microbiology SPECIMEN FROM NASOPHARYNGEAL STRUCTURE / Unknown Collection / Unknown 09/13/2024 6:02 AM CDT 09/13/2024 6:04 AM CDT Narrative [facility] - 09/13/2024 6:36 AM CDT The [email or web address] Xpert Xpress SARS-COV-2 has been authorized by [...] ORDERABLE S Final Result Performing Organization Address City/State/[facility] Co de Phone Number [facility] [address] [place] [address], [facility] [phone] * TRANSFUSE RED BLOOD CELL LEUKOREDUCED UNIT(S) [...] > Dictated by Sera Chowdhury Dr, MD (professor of radiology). ITerry MD have personally reviewed and interpreted this examination/study. > Interpreting Provider: Terry Ramos MD on 09/13/2024 9:42 AM Narrative 09/13/2024 9:42 AM CDT PROCEDURE: CT ANGIO AORTA FOR DISSECTION, DATE/TIME OF EXAM: 09/13/2024 12:28 AM, LOCATION [facility] INDICATION: R10.9: Abdominal pain, unspecified [...] DATE/TIME OF EXAM: 09/13/2024 12:28 AM, LOCATION [facility] INDICATION: R10.9: Abdominal pain, unspecified [...] > Dictated by Sera Chowdhury Dr, MD (professor of radiology). ITerry MD have personally reviewed and interpreted this examination/study. > Interpreting Provider: Terry Ramos MD on 09/13/2024 9:42 AM Yuriy Lopez MD CT ORDERABLES Final Result * PREPARE (CROSSMATCH) RBC UNIT(S), 1 Units (09/12/2024 11:30 PM CDT) Unit Description AS1 LR PRBC [facility] B[facility] LAB Unit ABO O [facility] Unit Rh NEG [facility] Product Number R43 [facility] B LOOD BANK LAB Unit Donor # [id number] [facility] Unit Status transfused [facility] BLO OD [facility]ANK LAB Product Code [id number] [facility] BLO OD BANK LAB Blood Type Barcode 9500 [facility] LAB Expiration Date [id number] S BLOOD BANK LAB Blood Bank BLOOD SPECIMEN / Unknown 09/12/2024 11:30 PM CDT 09/12/2024 11:37 PM CDT Yuriy Lopez MD LAB - BLOOD BANK ORDERABLES Final Result [facility] [address] [place] [address], [place] [phone] * TYPE + SCREEN PANEL (09/12/2024 11:30 PM CDT) Antibody Screen NEG 12:16 AM CDT [facility] B[facility]OD [facility] LAB ABO Rh O NEG 09/13/2024 12:16 AM CDT [facility] LAB Blood Bank BLOOD SPECIMEN / Unknown Venipuncture / Unknown 09/12/2024 11:30 PM CDT 09/12/2024 11:37 PM CDT Yuriy Lopez MD LAB - BLOOD BANK ORDERABLES Final Result [facility] [address] [place] [address], [facility] [phone] * CULTURE BLOOD (09/12/2024 10:00 PM CDT) Only the most recent of4 resultswithin the time period is included. Culture No growth day 5 MUSHTAQ 09/18/2024 1:30 AM CDT [facility] Blood PERIPHERAL BLOOD / Unknown Venipuncture / Unknown 09/12/2024 10:00 PM CDT 09/12/2024 10:21 PM CDT Result [facility] Yuriy Lopez MD LAB - MICROBIOLOGY ORDERABLE S Final Result Performing Organization Address City/[facility]/ZIP Co de Phone Number [facility] [address] [place] [address], [facility] [phone] * VAS Bilateral Venous Mapping (09/07/2024 2:24 [...] thickening. Report dictated by Freddie Durham MD, (Mortar Mixer Operator). I, Junior Hurley MD have personally [...] thickening. Report dictated by Freddie Durham MD, (Mortar Mixer Operator). I, Junior Hurley MD have personally reviewed and interpreted this examination/study. > Interpreting Provider: Junior Hurley MD on 56:26 AM us Charmaine Khalil MD CT ORDERABLES Final Result * (ABNORMAL) POTASSIUM WHOLE BLD (09/01/2024 3:54 PM CDT) Potassium Whole Blood 3.1(L) 3.5 - 5.5 mmol/L 09/01/2024 4:05 PM CDT [facility] Blood WHOLE BLOOD SPECIMEN / Unknown Venipuncture / Unknown 09/01/2024 3:54 PM CDT 09/01/2024 3:57 PM CDT us Jaqueline Crews IRON WORKER APPRENTICE-QA TEST ANALYST LAB - CHEMISTRY ORDERABL ES Final Result [facility] [address] [place] [address], [facility] [phone] * CCL STAGED PERC CORONARY INTERVENTION, CCL [...] 6Fr 1.25Mm Diamondback catheter and using a [employer] Diamondback 360 Viperwire Adv wire. 2 passes [...] DAPT Cardiology clinic f/u us Jaqueline Crews IRON WORKER APPRENTICE-QA TEST ANALYST CV CARDIAC CATH CUPID CT OCS Final Result * (ABNORMAL) IRON + TRANSFERRIN PANEL (08/19/2024 1:41 AM CDT) [facility] Signature Iron 40(L) 50 - 175 ug/dL 08/19/2024 2:17 AM CDT [facility] Transferrin 116(L) 174 - 382 mg/dL 08/19/2024 2:17 AM CDT [facility] Transferrin Saturation % 28 16 - 50 % 08/19/2024 2:17 AM CDT [facility] TIBC Calculated 145(L) 240 - 450 ug/dL 08/19/2024 2:17 AM CDT [facility] Blood BLOOD SPECIMEN / Unknown Lab Venipuncture / Unknown 08/19/2024 1:41 AM CDT 08/19/2024 2:01 AM CDT us Hannah Goodman MD LAB - CHEMISTRY ORDERABLES F inal Result Performing Organization Address City/[facility]/ZIP Co de Phone Number [address] [address], [place] [phone] * (ABNORMAL) FERRITIN (08/19/2024 1:41 AM CDT) Ferritin 560(H) 22 - 275 ng/mL 08/19/2024 2:35 AM CDT [facility] Blood BLOOD SPECIMEN / Unknown Lab Venipuncture / Unknown 08/19/2024 1:41 AM CDT 08/19/2024 2:01 AM CDT us Hannah Goodman MD LAB - CHEMISTRY ORDERABLES F inal Result Performing Organization Address City/[facility]/ZIP Co de Phone Number [address] [address], [place] [phone] * VITAMIN D 25-HYDROXY (08/19/2024 1:23 AM CDT) Vitamin D, 25 Hydroxy 36.2 30.0 - 80.0 ng/mL 08/19/2024 2:24 AM CDT [facility] Comment: The recommendations for 25-Hydroxy Vitamin D [...] - CHEMISTRY ORDERABLES F inal Result [facility] [address] [place] [address], [facility] [phone] * CCL PERIPHERAL ANGIOGRAM (08/18/2024 2:33 PM CDT) Anatomical Region Laterality Modality X-Ray Angiograph y Narrative 08/19/2024 2:24 PM CDT Left leg angiogram showed left AT severe diffuse disease with multiple subtotal occlusion and left PT severe diffuse disease with CISCO UNIFIED COMMUNICATIONS ENGINEER of distal PT without clear reconstitution. Successful [...] 0.018 CXI microcatheter with multiple wires(Command 18/command 14/Operating System Designer 200) to get to great toe branch of dorsalis pedis using pilot teacher [address]. - the AT-DP lesion was dilated with balloons mentioned in figure. - We turn our attention to PT. We crossed the PT CISCO UNIFIED COMMUNICATIONS ENGINEER with 0.018 CXI microcatheter with multiple wires (command 18, command 14, Operating System Designer 200) and able to go to lateral [...] using angiography. Left Posterior Tibial: Ost L BILLET BED OPERATOR to Dist L BILLET BED OPERATOR lesion is 100% stenosed. Stenosis was measured using angiography. Intervention Ost L ROSETTA to Dist L ROSETTA lesion: Angioplasty: Angioplasty independent of stent deployment was performed using a standard balloon. The balloon used was Cath VANDOLAYn Emrg Mr Wh 1.5Mm 144Cm 15Mm 2. [...] 10% residual stenosis post intervention. Ost L BILLET BED OPERATOR to Dist L BILLET BED OPERATOR lesion: Angioplasty: Angioplasty independent of stent [...] of Plavix. -recommend close follow up with hris administrator and follow up with me in clinic with JOSIANE/TBI. Hannah Goodman MD CV INVASIVE VASCULAR AND IR CUPID PROC Final Result * ACT LR - POCT ([facility]) (08/18/2024 2:08 PM CDT) Only the most recent of4 resultswithin the time period is included. [facility] ACT LR 231 See result comments sec 08/19/2024 9:02 AM T [facility] Blood BLOOD SPECIMEN / Unknown 08/18/2024 2:08 PM CDT 08/19/2024 9:02 AM CDT Narrative [facility] - 08/19/2024 9:02 AM CDT ACT-LR Therapeutics ranges are: Cardiac veterinary laboratory diagnostician = 200-300 seconds Sheath pull = ACT [...] MD LAB - COAGULATION ORDERABLES Final Result Performing Organization Address City/[facility] Co de Phone Number [facility] [address] [place] [address], [place] [phone] * HEPATITIS C ANTIBODY (06/16/2024 4:15 PM CDT) Hepatitis C Antibody Non-react sylvie Non-reac tive 06/16/2024 5:50 PM CDT [facility] Comment:Hepatitis C Antibody screen indicates no serologic [...] ORDERABLES Fi nal Result Performing Organization Address [facility]/ZIP Co de Phone Number [facility] [address] [place] [address], [place] [phone] from Last 3 Months or Most Recently Relevant to Health Maintenance Insurance [employer] MEDICARE ADV * Guarantor: GRACE INTERIANO Account Type Relation to Patient Date of Phone Billing Address Personal/Family [address] [place] [address] * Guarantor: GRACE INTERIANO Account Type Relation to Patient Date of Phone Billing Address Personal/Family [address] [place] [address] Advance Directives * Full Code (Latest Code [...] 3:16 PM 08/19/2024 4:36 PM Care Teams Community Center Worker Relationship Specialty Start Date End Date Jeff Strickland MD [address] [place] [address] PCP - General 03/05/18 [place] [address] [address] Orthopedic Surgery 03/28/17
--- OUTSIDE RECORDS SUMMARY | 2024-11-13 20:02 | XMS_ITS | Encounter Summary ---
Author Organization [facility] Address [facility] [place] [address] Care Team Providers Care Tank Builder Supervisor Name Role Phone Deandre Bojorquez MD Unavailable [phone] Jeff Strickland MD Primary Care Provider [phone] Encounter Details Date Type Department Care Team (Late st Contact Info) Description 07/31/2023 Lab Requisition [facility] MA[facility] LAB [address] [place] [phone] Alan Davenport MD [facility] [place] [address] Social History Tobacco Use Types Packs/Day Years Used Date Smoking Tobacco: Never Smokeless Tobacco: Never Alcohol Use Standard Drinks/Week Comments Not Currently 0 (1 standard drink = 0.6 oz pur e alcohol) socially in past Sex and Gender Information Value Date Recorded Sex Assigned at Male 07/02/2021 2:37 PM CDT Legal Sex Male 10:14 PM SOFTWARE QUALITY ASSURANCE SPECIALIST Gender Identity Male 07/02/2021 2:37 PM [...] Office Visit [facility] - Endocrinology [address] [place] [address], [place] [address] Marbin Flores MD [address] [facility] DIV [place] [address] Niraj Turner MD [address] [place] [address] 2L [place] [address] 2025 1:00 PM SOFTWARE QUALITY ASSURANCE SPECIALIST Office Visit [facility] - Neurology [address] [place] [address], [place] [address] Becky Wilson MD [address] [place] [phone] documented as of this encounter Procedures Procedure [...] - BLOOD BANK ORDERABLES F inal Result [facility] [address] documented in this encounter Visit Diagnoses Not on filedocumented in this encounter Additional Health Concerns Infection Onset Date Last Indicated Resolved Time COVID-19 Under Investigation 09/13/2024 09/13/2024 09/13/2024 6:36 AM CDT documented as of this encounter Care Teams Tank Builder Supervisor Relationship Specialty Start Date End Date Jeff Strickland MD [address] [place] [address] PCP - General 03/05/18 [place] [address] [address] Orthopedic Surgery 03/28/17 documented as of this encounter
--- OUTSIDE RECORDS SUMMARY | 2024-11-13 20:02 | XMS_ITS | Encounter Summary ---
Author Organization [facility] Address [facility] [place] [address] Care Team Providers Care Tool Repair Technician Name Role Phone Deandre Bojorquez MD Unavailable [phone] Jeff Strickland MD Primary Care Provider [phone] Encounter Details Date Type Department Care Team (Late st Contact Info) Description 04/10/2023 Lab Requisition [facility] MA[facility] LAB [address] [place] [phone] Alan Davenport MD [facility] [address] [facility] [place] [address] Social History Tobacco Use Types Packs/Day Years Used Date Smoking Tobacco: Never Smokeless Tobacco: Never Alcohol Use Standard Drinks/Week Comments Not Currently 0 (1 standard drink = 0.6 oz pur e alcohol) socially in past Sex and Gender Information Value Date Recorded Sex Assigned at Male 07/02/2021 2:37 PM CDT Legal Sex Male 10:14 PM TELE RN Gender Identity Male 07/02/2021 2:37 PM CDT [...] Description 12/06/2024 10:40 AM CDT [facility] [address] [place] [address], [place] [address] Marbin Flores MD [address] [facility] DIV [place] [address] Niraj Turner MD [address] [place] [address] 2L [place] [address] 2025 1:00 PM TELE RN Office Visit [facility] - Neurology [address] [place] [address], [place] [address] Becky Wilson MD [address] [place] [phone] documented as of this encounter Procedures Procedure Name Priority Date/Time Associated Diagnosis Comments HOLD HLA SPECIMEN Routine 04/02/2023 3:0 1 PM TELE RN documented in this encounter Results * HOLD HLA SPECIMEN (04/02/2023 3:01 PM TELE RN) Hold HLA Specimen 04/10/2023 4:01 PM TELE RN [facility] Comment:The Hold HLA specime n has been received into the lab and will be held for 5 years at 4 degrees. Blood BLOOD SPECIMEN / Unknown 04/02/2023 3:01 PM TELE RN 04/10/2023 3:01 PM TELE RN Alan Davenport MD LAB - BLOOD BANK ORDERABLES F inal Result [facility] [address] documented in this encounter Visit Diagnoses Not on filedocumented in this encounter Additional Health Concerns Infection Onset Date Last Indicated Resolved Time COVID-19 Under Investigation 09/13/2024 09/13/2024 09/13/2024 6:36 AM CDT documented as of this encounter Care Teams Tool Repair Technician Relationship Specialty Start Date End Date Jeff Strickland MD [address] [place] [address] PCP - General 03/05/18 [place] [address] [address] Orthopedic Surgery 03/28/17 documented as of this encounter
--- OUTSIDE RECORDS SUMMARY | 2024-11-13 20:02 | XMS_ITS | Encounter Summary ---
Author Organization [facility] Healthcare Address [address] [place] [address] Care Team Providers Care Senior Java Data Architect Name Role Phone Jeff Strickland MD Primary Care Provider Chan Nicholas MD Unavailable [phone] Alan Mccall MD Unavailable [phone] Pepito Haro MD PhD Unavailable [phone] Solange Guido MD Unavailable [phone] Encounter Details Date Type Department Care Team (Late st Contact Info) Description 07/26/2024 Orders Only [facility] Health Information Management [address] [place] [address] Scanning, Provider Social History Tobacco Use Types Packs/Day Years Used Date Smoking Tobacco: Never Smokeless Tobacco: Never Alcohol Use Standard Drinks/Week Comments Yes 0 (1 standard drink = 0.6 oz pur e alcohol) rarely [facility] Utilities Answer Date Recorded In the past 12 months has [employer] electric, gas, oil, or water company threatened [...] any clubs o r organizations such as gnosticist groups, unions, fraternal or athletic groups, or [...] on file Legal Sex Male 2:23 AM INTERN PRODUCT MARKETING MANAGER Gender Identity Not on file Sexual [...] filedocumented in this encounter Care Teams Senior Java Data Architect Relationship Specialty Start Date End Date Jeff Strickland MD [address] [place] [address] [address] [address] PCP - General Family Medicine 04/02/18 Chan Nicholas MD [facility] STATE [address] [address] Consulting Physician Gastroenterology 11/24/18 Alan Mccall MD [address] [place] [address] [address] [address] Referring Physician Nephrology 11/24/18 Pepito Haro MD PhD [facility] [address] [place] [place] [id number] Consulting Physician Neurosurgery 12/03/22 Solange Guido MD [address] [facility] [address] [place] [address] Referring Physician Cardiovascular Disease 07/23/23 documented as of this encounter
--- OUTSIDE RECORDS SUMMARY | 2024-11-13 20:02 | XMS_ITS | Encounter Summary ---
Author Organization [facility] Address [address] [place] [address] Care Team Providers Care Customer Sales Specialist Name Role Phone Deandre Bojorquez MD Unavailable [phone] Jeff Strickland MD Primary Care Provider [phone] Encounter Details Date Type Department Care Team (Late st Contact Info) Description 02/07/2023 Lab Requisition [facility] [address] [place] [phone] Alan Davenport MD [facility] [place] [address] Social History Tobacco Use Types Packs/Day Years Used Date Smoking Tobacco: Never Smokeless Tobacco: Never Alcohol Use Standard Drinks/Week Comments Not Currently 0 (1 standard drink = 0.6 oz pur e alcohol) socially in past Sex and Gender Information Value Date Recorded Sex Assigned at Male 07/02/2021 2:37 PM CDT Legal Sex Male 10:14 PM JAVA TECH LEAD Gender Identity Male 07/02/2021 2:37 PM CDT Sexual Orientation Straight 07/02/2021 2: 37 PM CDT documented as of this encounter Functional Status * Is person deaf or have serious hearing difficulty? Answer Date of Assessment Author No 08/04/2020 12:15 PM CDT Moniqeu Suárez RN * Is person blind or [...] Description 12/06/2024 10:40 AM CDT [facility] [address] [place] [address], [place] [address] Marbin Flores MD [address] [facility] DIV [place] [address] Niraj Turner MD [address] [place] [address] 2L [place] [address] 2025 1:00 PM JAVA TECH LEAD Office Visit [facility] - Neurology [address] [place] [address], [place] [address] Becky Wilson MD [address] [place] [phone] documented as of this encounter Procedures Procedure Name Priority Date/Time Associated Diagnosis Comments HOLD HLA SPECIMEN Routine 2023 7:5 8 AM JAVA TECH LEAD documented in this encounter Results * HOLD HLA SPECIMEN (2023 7:58 AM JAVA TECH LEAD) Hold HLA Specimen 02/07/2023 9:01 AM JAVA TECH LEAD [facility] Comment:The Hold HLA specime n has been received into the lab and will be held for 5 years at 4 degrees. Blood BLOOD SPECIMEN / Unknown 2023 7:58 AM JAVA TECH LEAD 02/07/2023 7:59 AM JAVA TECH LEAD us Alan Davenport MD LAB - BLOOD BANK ORDERABLES F inal Result [facility] [address] documented in this encounter Visit Diagnoses Not on filedocumented in this encounter Additional Health Concerns Infection Onset Date Last Indicated Resolved Time COVID-19 Under Investigation 09/13/2024 09/13/2024 09/13/2024 6:36 AM CDT documented as of this encounter Care Teams Customer Sales Specialist Relationship Specialty Start Date End Date Jeff Strickland MD [address] [place] [address] PCP - General 03/05/18 [place] [address] [address] Orthopedic Surgery 03/28/17 documented as of this encounter
--- OUTSIDE RECORDS SUMMARY | 2024-11-13 20:03 | XMS_ITS | Encounter Summary ---
Author Organization [facility] Address [address] [facility] [place] [address] Care Team Providers Care Convex Grinder Name Role Phone Deandre Bojorquez MD Unavailable [phone] Jeff Strickland MD Primary Care Provider [phone] Encounter Details Date Type Department Care Team (Late st Contact Info) Description 11/12/2024 Orders Only [facility] [address] [place] [address] Griffin Rodriguez MD [address] [facility] [address] [address] [place] [address] Social History Tobacco Use Types Packs/Day Years [...] Patient Health Questionnaire-2 Score 6 10/05/2024 [facility] - [...] were you homeless or living in a prison (including now)? No 09/24/2024 Sex and Gender Information Value Date Recorded Sex Assigned at Male 07/02/2021 2:37 PM CDT Legal Sex Male 10:14 PM PSYCHOTHERAPIST SOCIAL WORKER Gender Identity Male 07/02/2021 2:37 PM [...] of Assessment Author No 11/12/2024 10:41 AM CDT Yael Red RN * Is person blind or have serious difficulty seeing? Answer Date of Assessment Author Yes 11/12/2024 10:41 AM Yael Mandujano RN * Does person have serious difficulty walking/climbing stairs? Answer Date of Assessment Author Yes 11/12/2024 10:41 AM Yael Mandujano RN * Does person have difficulty dressing/bathing? Answer Date of Assessment Author Yes 11/12/2024 10:41 AM Yael Mandujano RN * Does person have difficulty doing errands alone? Answer Date of Assessment Author Yes 11/12/2024 10:41 AM Yael Mandujano RN documented as of this encounter Mental Status * Does person have difficulty concentrating/remembering/making decisions? Answer Entry Date Author No 11/12/2024 10:41 AM Yael Mandujano RN documented in this encounter Plan of Treatment Upcoming Encounters Date Type Department Care Team (Late st Contact Info) Description 12/06/2024 10:40 AM CDT [facility] End[facility] [address] [place] [address], [place] [address] Marbin Flores MD [address] [facility] DIV [place] [address] Niraj Turner MD [address] [place] [address] 2L [place] [address] 2025 1:00 PM PSYCHOTHERAPIST SOCIAL WORKER Office Visit [facility] - Neurology [address] [place] [address], [place] [address] Becky Wilson MD [address] [place] [phone] documented as of this encounter Visit Diagnoses Not on filedocumented in this encounter Care Teams Convex Grinder Relationship Specialty Start Date End Date Jeff Strickland MD [address] [place] [address] PCP - General 03/05/18 [place] [address] [address] [address] Orthopedic Surgery 03/28/17 documented as of this encounter
--- OUTSIDE RECORDS SUMMARY | 2024-11-13 20:03 | XMS_ITS | Encounter Summary ---
Author Organization [facility] Address [facility]3 [place] [address] Care Team Providers Care Maintenance Groundskeeper Name Role Phone Deandre Bojorquez MD Unavailable [phone] Jeff Strickland MD Primary Care Provider [phone] Encounter Details Date Type Department Care Team (Late st Contact Info) Description 04/29/2024 Lab Requisition [facility] [address] [place] [phone] Alan Davenport MD [facility]1 [facility] OF ABD [place] [address] Social History Tobacco Use Types Packs/Day Years Used Date Smoking Tobacco: Never Smokeless Tobacco: Never Alcohol Use Standard Drinks/Week Comments Not Currently 0 (1 standard drink = 0.6 oz pur e alcohol) socially in past Sex and Gender Information Value Date Recorded Sex Assigned at Male 07/02/2021 2:37 PM CDT Legal Sex Male 10:14 PM BOATS RENTER Gender Identity Male 07/02/2021 2:37 PM CDT [...] Visit [facility] End[facility]ology [address] [place] [address], [place] [address] Marbin Flores MD [address] [facility] DIV OF ABD TRANS[place] [address] Niraj Turner MD [address] [place] [address] 2L [place] [address] 2025 1:00 PM BOATS RENTER Office Visit [facility] - Neurology [address] [place] [address], [place] [address] Becky Wilson MD [address] [place] [phone] documented as of this encounter Procedures Procedure Name Priority Date/Time Associated Diagnosis Comments HOLD HLA SPECIMEN Routine 04/27/2024 1:4 8 PM CDT documented in this encounter Results * HOLD HLA SPECIMEN (04/27/2024 1:48 PM CDT) Hold HLA Specimen 04/29/2024 3:02 PM CDT [facility] Comment:The Hold HLA specime n has been received into the lab and will be held for 5 years at 4 degrees. Blood BLOOD SPECIMEN / Unknown 04/27/2024 1:48 PM CDT 04/29/2024 1:49 PM CDT us Alan Davenport MD LAB - BLOOD BANK ORDERABLES F inal Result [facility] [address] documented in this encounter Visit Diagnoses Not on filedocumented in this encounter Additional Health Concerns Infection Onset Date Last Indicated Resolved Time COVID-19 Under Investigation 09/13/2024 09/13/2024 09/13/2024 6:36 AM CDT documented as of this encounter Care Teams Maintenance Groundskeeper Relationship Specialty Start Date End Date Jeff Strickland MD [address] [place] [address] PCP - General 03/05/18 [place] [address] [address] Orthopedic Surgery 03/28/17 documented as of this encounter
--- OUTSIDE RECORDS SUMMARY | 2024-11-13 20:03 | XMS_ITS ---
Author Organization [facility] Address [place] [address] Care Team Providers Care Edge Beader Name Role Phone Jeff Strickland MD Primary Care Provider Chan Nicholas MD Unavailable [phone] Alan Mccall MD Unavailable [phone] Pepito Haro MD PhD Unavailable [phone] Solange Guido MD Unavailable [phone] Active Problems Problem Noted Date Diagnosed Date [...] damage Assessment & Plan (03/09/2024 6:25 PM MILK ROUTE DELIVERER): Vision OD trends mild improvement, though still [...] weeks and have patient return to [facility] retina in 4 weeks for repeat [...] 03/26/2021 Assessment & Plan (03/26/2021 1:17 PM MILK ROUTE DELIVERER): Enlarged mild sella turcica on a routine [...] units Assessment & Plan (03/26/2021 1:17 PM MILK ROUTE DELIVERER): Chronic, uncontrolled, improving A1c today 7.7 % [...] WNL Assessment & Plan (03/26/2021 1:16 PM MILK ROUTE DELIVERER): Pt currently on Levothyroxine 112 mcg oral [...] 11/18/2018 Assessment & Plan (01/21/2019 2:02 PM MILK ROUTE DELIVERER): Symptomatic. Will request for esophageal manometry. Continue [...] well Assessment & Plan (03/26/2021 1:16 PM MILK ROUTE DELIVERER): On statin therapy Tolerating well Last lipid [...] nephrectomy. 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 [id number] Current Treatment and Therapy Plans No current [...] were not included. Kendall Carl 1955 Referring Cooperative Extension Agent: Alan Mccall Dialysis Info: NOD GFR 13 Type: Time: (Not currently on dialysis) days Blood Type: O NEG Body mass index is 37.36 kg/m . ALERTS Lockstitch Front Maker: needs to establish Past Medical History: Diagnosis Date Arthropathy RA. Dr Strickland manages. CHF (congestive heart failure) 2 yrs ago Art Education Professor is Dr. Becerra in [place]. CKD (chronic kidney disease), stage V Community acquired pneumonia 2018 [facility] hospitalized. Diabetes mellitus 20 years. Lantus pen. Esophageal reflux takes med Hypercholesteremia 5-10 yrs meds Hypertension takes meds Hypothyroidism meds 20 years Kidney stones 5-6 years ago had 2 in the same year. Malignancy right kidney 2012 Obstructive sleep apnea 3 years. [facility]. Cannont remember doctors name Renal cell [...] support system and appropriate discharge plan. Plan: behavioral health worker to provide supportive services as needed. Patient appears to be a reasonable candidate for transplant from a psychosocial perspective. -Post transplant arrangement forms are needed prior to being listed. -Updated toxicology results needed, per protocol Psychiatric Consult Recommended: No Transplant Punchboard Filling Machine Operator: Joy Tam LCSW RD: 11/09/2019 [...] my fitness pal or my food head boys golf coach) - Consume no more than 2000 calories a day E-mailed pt's a 2000 calorie, CKD meal plan. Items Still Pending: Clinic, colonoscopy Acute pain of left shoulder 01/25/2019 03/25/2023 Non-cardiac chest pain 11/18/201803/25 Assessment & Plan (01/21/2019 2:02 PM MILK ROUTE DELIVERER): The pain is persistent. The patient described [...] has had extensive cardiac workup by the strategy manager including coronary angiogram. He has chest [...]
--- OUTSIDE RECORDS SUMMARY | 2024-11-13 20:03 | XMS_ITS | Clinical Summary ---
Author Organization [facility] Address [address] [place] [address] Phone Care Team Providers Care Living Coach Name Role Phone Jeff Strickland MD Primary Care Provider [phone] Allergies No known active allergies Medications pantoprazole [...] tablet Take 112 mcg by mouth daily acid concentrator. Active aspirin (ANGELLA) 325 mg tablet Take 325 mg by mouth daily. Active Vit C-Vit M-Ztorns-SrAv-L utein (PRESERVISION) 226 mg-200 unit -5 mg-0.8 [...] Comments Blood Pressure 167/77 02/04/2019 9:16 AM NON DESTRUCTIVE TESTING SCIENTIST Pulse 64 02/04/2019 9:16 AM NON DESTRUCTIVE TESTING SCIENTIST Temperature 36.5 C (97.7 F) 02/04/2019 9:16 AM NON DESTRUCTIVE TESTING SCIENTIST Respiratory Rate 16 02/04/2019 9:16 AM NON DESTRUCTIVE TESTING SCIENTIST Oxygen Saturation 97% 02/04/2019 9:16 AM NON DESTRUCTIVE TESTING SCIENTIST Inhaled Oxygen Concentration - - Weight 113.4 kg (250 lb) 02/04/2019 9:16 AM NON DESTRUCTIVE TESTING SCIENTIST Height 175.3 cm (5' 9) 02/04/2019 9:16 AM NON DESTRUCTIVE TESTING SCIENTIST Body Mass Index 36.92 02/04/2019 9:16 AM NON DESTRUCTIVE TESTING SCIENTIST Plan of Treatment Health Maintenance Due Date [...] PPO AETNA MEDICARE SUPPLEMENT PPO [facility] BLUE ACCESS/TRUE BLUE PPO Care Teams Living Coach Relationship Specialty Start Date End Date Jeff Strickland MD [address] [email or web address] [address] [place] [address] PCP - General Family Practice 01/01/19
--- OUTSIDE RECORDS SUMMARY | 2024-11-13 20:03 | XMS_ITS | Encounter Summary ---
Author Organization [facility] Address [address] [place] [address] Care Team Providers Care Ed Physicians Name Role Phone Deandre Bojorquez MD Unavailable [phone] Jeff Strickland MD Primary Care Provider [phone] Encounter Details Date Type Department Care Team (Late st Contact Info) Description 09/10/2024 Telephone [facility] - Central[facility] Scheduling [facility] [place] [address] Niraj Turner MD [facility] [place] [address] Social History Tobacco Use Types Packs/Day Years [...] and heating? Not hard at all 09/14/2024 [facility] Occupat [facility] - Occupational Stress Questionnaire Answer [...] living in a detention (including now)? No 09/14/2024 Sex and Gender Information Value Date Recorded Sex Assigned at Male 07/02/2021 2:37 PM CDT Legal Sex Male 10:14 PM OCTAVE BOARD ASSEMBLER Gender Identity Male 07/02/2021 2:37 PM [...] Office Visit [facility] - Endocrinology [address] [place] [address], [place] [phone] Marbin Flores MD [address] [facility] DIV OF A[place] [address] Niraj Turner MD [address] [place] [address] [place] [address] 2025 1:00 PM OCTAVE BOARD ASSEMBLER Office Visit [facility] - Neurology [address] [place] [address], [place] [phone] Becky Wilson MD [address] [place] [phone] documented as of this encounter Visit Diagnoses Not on filedocumented in this encounter Additional Health Concerns Infection Onset Date Last Indicated Resolved Time COVID-19 Under Investigation 09/13/2024 09/13/2024 09/13/2024 6:36 AM CDT documented as of this encounter Care Teams Ed Physicians Relationship Specialty Start Date End Date Jeff Strickland MD [address] [place] [address] PCP - General 03/05/18 [place] [address] [facility] [address] [place] [address] Orthopedic Surgery 03/28/17 documented as of this encounter
--- OUTSIDE RECORDS SUMMARY | 2024-11-13 20:03 | XMS_ITS | Encounter Summary ---
Author Organization [facility] Address [address] [place] [address] Care Team Providers Care Receiving Inspector Name Role Phone Deandre Bojorquez MD Unavailable [phone] Jeff Strickland MD Primary Care Provider [phone] Encounter Details Date Type Department Care Team (Late st Contact Info) Description 02/04/2024 Lab Requisition [facility] [address] [place] [phone] Alan Davenport MD [facility] [place] [address] Social History Tobacco Use Types Packs/Day Years Used Date Smoking Tobacco: Never Smokeless Tobacco: Never Alcohol Use Standard Drinks/Week Comments Not Currently 0 (1 standard drink = 0.6 oz pur e alcohol) socially in past Sex and Gender Information Value Date Recorded Sex Assigned at Male 07/02/2021 2:37 PM CDT Legal Sex Male 10:14 PM PIPELINE MAINTENANCE SUPERVISOR Gender Identity Male 07/02/2021 2:37 PM [...] Description 12/06/2024 10:40 AM CDT [facility] [address] [place] [address], [place] [address] Marbin Flores MD [address] [facility] DIV OF [place] [address] Niraj Turner MD [address] [place] [address] 2L [place] [address] 2025 1:00 PM PIPELINE MAINTENANCE SUPERVISOR Office Visit [facility] - Neurology [address] [place] [address], [place] [address] Becky Wilson MD [address] [place] [phone] documented as of this encounter Procedures Procedure Name Priority Date/Time Associated Diagnosis Comments HOLD HLA SPECIMEN Routine 01/27/2024 3:2 3 PM PIPELINE MAINTENANCE SUPERVISOR documented in this encounter Results * HOLD HLA SPECIMEN (01/27/2024 3:23 PM PIPELINE MAINTENANCE SUPERVISOR) Hold HLA Specimen 02/04/2024 4:31 PM PIPELINE MAINTENANCE SUPERVISOR [facility] Comment:The Hold HLA specime n has been received into the lab and will be held for 5 years at 4 degrees. Blood BLOOD SPECIMEN / Unknown 01/27/2024 3:23 PM PIPELINE MAINTENANCE SUPERVISOR 02/04/2024 3:23 PM PIPELINE MAINTENANCE SUPERVISOR Alan Davenport MD LAB - BLOOD BANK ORDERABLES F inal Result [facility] [address] documented in this encounter Visit Diagnoses Not on filedocumented in this encounter Additional Health Concerns Infection Onset Date Last Indicated Resolved Time COVID-19 Under Investigation 09/13/2024 09/13/2024 09/13/2024 6:36 AM CDT documented as of this encounter Care Teams Receiving Inspector Relationship Specialty Start Date End Date Jeff Strickland MD [address] [place] [address] PCP - General 03/05/18 [place] [address] [address] Orthopedic Surgery 03/28/17 documented as of this encounter
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
--- OUTSIDE RECORDS SUMMARY | 2024-11-13 20:03 | XMS_ITS | Encounter Summary ---
Author Organization [facility] Address [address] [place] [address] Care Team Providers Care Game Artist Name Role Phone Deandre Bojorquez MD Unavailable [phone] Jeff Strickland MD Primary Care Provider [phone] Encounter Details Date Type Department Care Team (Late st Contact Info) Description 09/24/2024 Results Follow-Up [facility] Early Admission Unit [address] [place] [phone] Angel Crook MD [address] [place] [address] Social History Tobacco Use Types Packs/Day Years [...] and heating? Not hard at all 09/24/2024 [facility] [place] of Occupat ional Health - Occupational Stress [...] any time in the past 12 m [facility], were you homeless or living in a fci (including now)? No 09/24/2024 Sex and Gender Information Value Date Recorded Sex Assigned at Male 07/02/2021 2:37 PM CDT Legal Sex Male 10:14 PM ORDNANCE OFFICER Gender Identity Male 07/02/2021 2:37 PM [...] on one occasion? Never 09/24/2024 4:31 AM Francy Farley RN * Audit-C Score Answer Date of Assessment Author 0 09/24/2024 4:31 AM Francy Farley RN * Is person deaf or have serious hearing difficulty? Answer Date of Assessment Author No 09/24/2024 5:33 AM Francy Farley RN * Is person blind or have serious difficulty seeing? Answer Date of Assessment Author No 09/24/2024 5:33 AM Francy Farley RN * Does person have serious difficulty walking/climbing stairs? Answer Date of Assessment Author No 09/24/2024 5:33 AM Francy Farley RN * Does person have difficulty dressing/bathing? [...] Visit [facility] - Endocrinology [address] [place] [address], [place] [phone] Marbin Flores MD [address] [facility] DIV [place] [address] Niraj Turner MD [address] [place] [address] [place] [address] 2025 1:00 PM ORDNANCE OFFICER Office Visit [facility] - Neurology [address] [place] [address], [place] [phone] Becky Wilson MD [address] [place] [phone] documented as of this encounter Visit Diagnoses Not on filedocumented in this encounter Care Teams Game Artist Relationship Specialty Start Date End Date Jeff Strickland MD [address] [place] [address] PCP - General 03/05/18 [place] [address] [facility] [address] [place] [address] Orthopedic Surgery 03/28/17 documented as of this encounter
--- OUTSIDE RECORDS SUMMARY | 2024-11-13 20:03 | XMS_ITS | Encounter Summary ---
Author Organization [facility] Address [address] [place] [address] Care Team Providers Care School Library Media Program Director Name Role Phone Deandre Bojorquez MD Unavailable [phone] Jeff Strickland MD Primary Care Provider [phone] Reason for Visit * Reason Onset Date Comments Post-Op 09/03/2024 Encounter Details Date Type Department Care Team (Late st Contact Info) Description 09/03/2024 Telephone [facility] - Cardiology [address] [facility], [facility] [address] [place] [address] Hannah Goodman MD [address] [facility] 2[address] [place] [address] Post-Op Social History Tobacco Use Types Packs/Day [...] and heating? Not hard at all 09/04/2024 [facility] [place] of Occupat ional Health - Occupational Stress [...] time in the past 12 m [facility], were you homeless or living in a [place] health care facility (including now)? No 09/04/2024 Sex and Gender Information Value Date Recorded Sex Assigned at Male 07/02/2021 2:37 PM CDT Legal Sex Male 10:14 PM CLOTH BOIL OFF MACHINE OPERATOR Gender Identity Male 07/02/2021 2:37 [...] confused post op Patient Call Back number: [phone] documented in this encounter Plan of Treatment Upcoming Encounters Date Type Department Care Team (Late st Contact Info) Description 12/06/2024 10:40 AM CDT Office Visit [facility] - Endocrinology [address] [place] [address], [place] [address] Marbin Flores MD [address] [facility] DIV OF ABD [place] [address] Niraj Turner MD [address] [place] [address] [address] [place] [address] 2025 1:00 PM CLOTH BOIL OFF MACHINE OPERATOR Office Visit [facility] - Neurology [address] [place] [address], [place] [address] Becky Wilson MD [address] [place] [phone] documented as of this encounter Visit Diagnoses Not on filedocumented in this encounter Additional Health Concerns Infection Onset Date Last Indicated Resolved Time COVID-19 Under Investigation 09/13/2024 09/13/2024 09/13/2024 6:36 AM CDT documented as of this encounter Care Teams School Library Media Program Director Relationship Specialty Start Date End Date Jeff Strickland MD [address] [place] [address] PCP - General 03/05/18 [place] [address] [place] [address] Orthopedic Surgery 03/28/17 documented as of this encounter
--- OUTSIDE RECORDS SUMMARY | 2024-11-13 20:03 | XMS_ITS | Encounter Summary ---
Author Organization [facility] Address [address] [place] [address] Care Team Providers Care Manager Equipment Name Role Phone Deandre Bojorquez MD Unavailable [phone] Jeff Strickland MD Primary Care Provider [phone] Encounter Details Date Type Department Care Team (Late st Contact Info) Description 03/12/2024 Lab Requisition [facility] [address] [place] [phone] Alan Davenport MD [facility] [place] [address] Social History Tobacco Use Types Packs/Day Years Used Date Smoking Tobacco: Never Smokeless Tobacco: Never Alcohol Use Standard Drinks/Week Comments Not Currently 0 (1 standard drink = 0.6 oz pur e alcohol) socially in past Sex and Gender Information Value Date Recorded Sex Assigned at Male 07/02/2021 2:37 PM CDT Legal Sex Male 10:14 PM DIRECTOR OF EMAIL MARKETING Gender Identity Male 07/02/2021 2:37 PM CDT [...] Description 12/06/2024 10:40 AM CDT [facility] [address] [place] [address], [place] [address] Marbin Flores MD [address] [facility] DIV [place] [address] Niraj Turner MD [address] [place] [address] [address] [place] [address] 2025 1:00 PM DIRECTOR OF EMAIL MARKETING Office Visit [facility] Physician Group - Neurology [address] [place] [address], [place] [address] Becky Wilson MD [address] [place] [phone] documented as of this encounter Procedures Procedure Name Priority Date/Time Associated Diagnosis Comments HOLD HLA SPECIMEN Routine 03/05/2024 1:4 0 PM DIRECTOR OF EMAIL MARKETING documented in this encounter Results * HOLD HLA SPECIMEN (03/05/2024 1:40 PM DIRECTOR OF EMAIL MARKETING) Hold HLA Specimen 03/12/2024 3:00 PM DIRECTOR OF EMAIL MARKETING [facility] Comment:The Hold HLA specime n has been received into the lab and will be held for 5 years at 4 degrees. Blood BLOOD SPECIMEN / Unknown 03/05/2024 1:40 PM DIRECTOR OF EMAIL MARKETING 03/12/2024 1:40 PM DIRECTOR OF EMAIL MARKETING Alan Davenport MD LAB - BLOOD BANK ORDERABLES F inal Result [facility] [address] documented in this encounter Visit Diagnoses Not on filedocumented in this encounter Additional Health Concerns Infection Onset Date Last Indicated Resolved Time COVID-19 Under Investigation 09/13/2024 09/13/2024 09/13/2024 6:36 AM CDT documented as of this encounter Care Teams Manager Equipment Relationship Specialty Start Date End Date Jeff Strickland MD [address] [place] [address] PCP - General 03/05/18 [place] [address] [address] Orthopedic Surgery 03/28/17 documented as of this encounter
--- OUTSIDE RECORDS SUMMARY | 2024-11-13 20:03 | XMS_ITS | Encounter Summary ---
Author Organization [facility] Address [facility] [place] [address] Care Team Providers Care Beveling Machine Operator Name Role Phone Deandre Bojorquez MD Unavailable [phone] Jeff Strickland MD Primary Care Provider [phone] Encounter Details Date Type Department Care Team (Late st Contact Info) Description 03/30/2024 Lab Requisition [facility] LAB [address] [place] [phone] Alan Davenport MD [facility] [place] [address] Social History Tobacco Use Types Packs/Day Years Used Date Smoking Tobacco: Never Smokeless Tobacco: Never Alcohol Use Standard Drinks/Week Comments Not Currently 0 (1 standard drink = 0.6 oz pur e alcohol) socially in past Sex and Gender Information Value Date Recorded Sex Assigned at Male 07/02/2021 2:37 PM CDT Legal Sex Male 10:14 PM VENEER SAMPLE MAKER Gender Identity Male 07/02/2021 2:37 PM [...] Description 12/06/2024 10:40 AM CDT [facility] [address] [place] [address], [place] [address] Marbin Flores MD [address] [facility] DIV OF [place] [address] Niraj Turner MD [address] [place] [address] [address] [place] [address] 2025 1:00 PM VENEER SAMPLE MAKER Office Visit [facility]ician Group - Neurology [address] [place] [address], [place] [address] Becky Wilson MD [address] [place] [phone] documented as of this encounter Procedures Procedure Name Priority Date/Time Associated Diagnosis Comments HOLD HLA SPECIMEN Routine 03/25/2024 2:5 1 PM VENEER SAMPLE MAKER documented in this encounter Results * HOLD HLA SPECIMEN (03/25/2024 2:51 PM VENEER SAMPLE MAKER) Hold HLA Specimen 03/30/2024 4:01 PM VENEER SAMPLE MAKER [facility] Comment:The Hold HLA specime n has been received into the lab and will be held for 5 years at 4 degrees. Blood BLOOD SPECIMEN / Unknown 03/25/2024 2:51 PM VENEER SAMPLE MAKER 03/30/2024 2:51 PM VENEER SAMPLE MAKER Alan Davenport MD LAB - BLOOD BANK ORDERABLES F inal Result [facility] [address] documented in this encounter Visit Diagnoses Not on filedocumented in this encounter Additional Health Concerns Infection Onset Date Last Indicated Resolved Time COVID-19 Under Investigation 09/13/2024 09/13/2024 09/13/2024 6:36 AM CDT documented as of this encounter Care Teams Beveling Machine Operator Relationship Specialty Start Date End Date Jeff Strickland MD [address] [place] [address] PCP - General 03/05/18 [place] [address] [address] Orthopedic Surgery 03/28/17 documented as of this encounter
--- OUTSIDE RECORDS SUMMARY | 2024-11-13 20:03 | XMS_ITS ---
Author Organization [facility] Address [address] [place] [address] Care Team Providers Care Territory Sales Professional Name Role Phone Jeff Strickland MD Primary Care Provider Chan Nicholas MD Unavailable [phone] Alan Mccall MD Unavailable Pepito Haro MD PhD Unavailable Solange Guido MD Unavailable [phone] Dialysis Access Sites Type Status Location Placement [...] both eyes EGFR Routine 04/13/2024 5:06 AM RESTAURANT OPERATIONS MANAGER HEMOGLOBIN A1C STAT 04/10/2024 11:41 PM RESTAURANT OPERATIONS MANAGER LIPID PANEL STAT 04/10/2024 11:41 PM RESTAURANT OPERATIONS MANAGER from Last 3 Months or Most Recently [...] 300 + = 14 units Active FA-vit Buivu-N-xsvm-vitamin D3 (Dialyvite 800-Ultra D) 0.8-2,000 mg-unit tablet [...] total) by mouth 06/04/19 25 Active vitamins A,C,D-yflt-hfimps (PreserVision AREDS) 4,296 mcg-226 mg-90 mg capsule [...] damage Assessment & Plan (03/09/2024 6:25 PM RESTAURANT OPERATIONS MANAGER): Vision OD trends mild improvement, though [...] discussed that genetic results would not change of address clerk. Given we have exhausted available treatment [...] 03/26/2021 Assessment & Plan (03/26/2021 1:17 PM RESTAURANT OPERATIONS MANAGER): Enlarged mild sella turcica on a [...] units Assessment & Plan (03/26/2021 1:17 PM RESTAURANT OPERATIONS MANAGER): Chronic, uncontrolled, improving A1c today 7.7 [...] WNL Assessment & Plan (03/26/2021 1:16 PM RESTAURANT OPERATIONS MANAGER): Pt currently on Levothyroxine 112 mcg [...] 11/18/2018 Assessment & Plan (01/21/2019 2:02 PM RESTAURANT OPERATIONS MANAGER): Symptomatic. Will request for esophageal manometry. [...] well Assessment & Plan (03/26/2021 1:16 PM RESTAURANT OPERATIONS MANAGER): On statin therapy Tolerating well Last [...] nephrectomy. 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 [id number] Immunizations Immunization Administration Dates Next Due Hep [...] alcohol) rarely [facility] [employer] Answer Date Recorded In the past 12 months has [employer], gas, oil, or water [employer] threatened to shut off services in your [...] often do you attend chur ch or confucianism services? Never 03/25/2023 Do you belong to [...] on file Legal Sex Male 2:23 AM RESTAURANT OPERATIONS MANAGER Gender Identity Not on file Sexual [...] CDT Respiratory Rate 16 04/13/2024 8:33 AM RESTAURANT OPERATIONS MANAGER Oxygen Saturation 98% 04/13/2024 8:33 AM RESTAURANT OPERATIONS MANAGER Inhaled Oxygen Concentration - - Weight 122.3 [...] Selwyn Wong M.D. LC: MARC Report ID: [id number] Reading Location: [id number] Procedure Note Dolores Wong MD - 10/12/2024 EXAM DESCRIPTION: MRI BRAIN WO CONTRAST REASON FOR STUDY: other symptoms and signs involving cognitive functionsand awareness Cognitive changes, confusion, worse over that last several weeks, noinjury or trauma but patient states he has had several surgeries recently TECHNIQUE: Multiplanar imaging includes non-contrasted T1, T2, FLAIR, and diffusion with ADC map sequences. Additional sequence(s) sensitive [employer] products. Images stored on PACS. COMPARISON: MRI [...] Selwyn Wong M.D. LC: MARC Report ID: [id number] Reading Location: [id number] us Provider Transcribed Order IMG MRI PROCEDURES [...] Result * (ABNORMAL) eGFR (04/13/2024 5:06 AM RESTAURANT OPERATIONS MANAGER) eGFR 5(L) >=60 mL/min/1. 73 m2 [...] reviewed 2020. Blood 04/13/2024 5:0 6 AM RESTAURANT OPERATIONS MANAGER 04/13/2024 5:31 AM RESTAURANT OPERATIONS MANAGER us Saul Engle MD LAB BLOOD ORDERABLES Final Resul t [facility] Department of Laboratories [place], [place] [id number] * (ABNORMAL) Lipid panel (04/10/2024 11:41 PM RESTAURANT OPERATIONS MANAGER) Cholesterol 145 30 - 199 mg/dL Comment: [...] revised on 2017. HDL 22(L) >=40 mg/dL [facility] Comment: Interpretive [...] 2017. LDL, calculated See Comment <=129 [facility] Comment: Unable [...] on 2023. Non-HDL Cholesterol 123 mg/dL KER[facility] [...] last revised on 2017. Chol/HDL ratio 7 [facility] Blood 04/10/2024 11:4 1 PM RESTAURANT OPERATIONS MANAGER 04/10/2024 11:55 PM RESTAURANT OPERATIONS MANAGER us Nicole Boo MD LAB BLOOD ORDERABLES Final Result [facility] Department [place] [address] from Last 3 Months or Most Recently Relevant to Health Maintenance
--- OUTSIDE RECORDS SUMMARY | 2024-11-13 20:03 | XMS_ITS | Encounter Summary ---
Author Organization [facility] Address [address] [place] [address] Care Team Providers Care Referral Nurse Name Role Phone Deandre Bojorquez MD Unavailable [phone] Jeff Strickland MD Primary Care Provider [phone] Encounter Details Date Type Department Care Team (Latest Contact Info) Description 11/12/2024 Travel Social History Tobacco Use Types Packs/Day [...] Recorded Patient Health Questionnaire-2 Score 6 10/05/2024 [facility] [place] of Occupat ional [facility] - Occupational Stress Questionnaire Answer [...] PM CDT Legal Sex Male 10:14 PM BOOKKEEPING SERVICE SALES AGENT Gender Identity Male 07/02/2021 2:37 PM [...] Assessment Author Yes 11/12/2024 10:41 AM ELIANAT Besher, Yael M, RN * Does person have difficulty dressing/bathing? [...] Visit [facility] - Endocrinology [address] [place] [address], [place] [address] Marbin Flores MD [address] [facility] DIV OF [place] [address] Niraj Turner MD [facility] 2L [place] [address] 2025 1:00 PM BOOKKEEPING SERVICE SALES AGENT Office Visit [facility] - Neurology [address] [place] [address] [address] Becky Wilson MD [address] [place] [phone] documented as of this encounter Visit Diagnoses Not on filedocumented in this encounter Care Teams Referral Nurse Relationship Specialty Start Date End Date Jeff Strickland MD [address] [place] [address] PCP - General 03/05/18 [place] [address] [address] Orthopedic Surgery 03/28/17 documented as of this encounter
--- NOTE | 2024-11-13 20:22 | ECG_ITS ---
Test Date: 2024-11-13 20:56:56 Measurements Intervals [place] Rate: 66 P: 81 IA: 152 QRS: -63 QRSD: 109 T: 16 QT: 466 QTc: 491 Interpretive Statements SINUS RHYTHM PATTERN CONSISTENT WITH PULMONARY DISEASE INCOMPLETE RIGHT BUNDLE BRANCH BLOCK LEFT ANTERIOR FASCICULAR BLOCK Electronically Signed On 11-14-2024 20:47:59 CDT by Kun Carvajal D.O
[2024-11-13 20:36] LABS: Hematocrit 33.5 % (42.0-52.0); Hemoglobin 10.6 g/dL (14.0-18.0); Immature Granulocyte Percent A 1.2 % (0-0.5); Lymphocytes Absolute Auto 1.30 K/mm3 (0.9-3.2); Mean Corpuscular HGB Conc 31.6 g/dl (32-36); Mean Corpuscular Hemoglobin 28.5 pg (26-34); Mean Corpuscular Volume 90.1 fl (80-100); Nucleated Red Blood Cells Absolute Auto 0.000 K/mm3 (0.0-0.012); Nucleated Red Blood Cells Perc 0.0 % (0.0-0.2); Platelet Count Result 202 k/mm3 (150-375); Red Blood Count 3.72 M/mm3 (4.6-6.20); White Blood Count 7.7 K/mm3 (4.5-10.0)
--- OUTSIDE RECORDS SUMMARY | 2024-11-13 20:41 | XMS_ITS | Encounter Summary ---
Author Organization [facility] Address [facility] [place] [address] Care Team Providers Care Farm Management Teacher Name Role Phone Deandre Bojorquez MD Unavailable [phone] Jeff Strickland MD Primary Care Provider [phone] Encounter Details Date Type Department Care Team (Late st Contact Info) Description 05/29/2023 Lab Requisition [facility] MAIN LAB [address] [place] [phone] Alan Davenport MD [facility]1 [facility] [place] [address] Social History Tobacco Use Types Packs/Day Years Used Date Smoking Tobacco: Never Smokeless Tobacco: Never Alcohol Use Standard Drinks/Week Comments Not Currently 0 (1 standard drink = 0.6 oz pur e alcohol) socially in past Sex and Gender Information Value Date Recorded Sex Assigned at Male 07/02/2021 2:37 PM CDT Legal Sex Male 10:14 PM TERRESTRIAL ECOLOGIST Gender Identity Male 07/02/2021 2:37 PM CDT [...] Visit [facility] - Endocrinology [address] [place] [address], [place] [phone] Marbin Flores MD [address] [facility] DIV [place] [address] Niraj Turner MD [address] [place] [address] 2L [place] [address] 2025 1:00 PM TERRESTRIAL ECOLOGIST Office Visit [facility] - Neurology [address] [place] [address], [place] [address] Becky Wilson MD [address] [place] [phone] documented as of this encounter Procedures Procedure Name Priority Date/Time Associated Diagnosis Comments HOLD HLA SPECIMEN Routine 05/21/2023 9:2 4 AM CDT documented in this encounter Results * HOLD HLA SPECIMEN (05/21/2023 9:24 AM CDT) Hold HLA Specimen 05/29/2023 10:30 AM CDT [facility] Comment:The Hold HLA specime n has been received into the lab and will be held for 5 years at 4 degrees. Blood BLOOD SPECIMEN / Unknown 05/21/2023 9:24 AM CDT 05/29/2023 9:24 AM CDT us Alan Davenport MD LAB - BLOOD BANK ORDERABLES F inal Result [facility] [address] [place] [address] documented in this encounter Visit Diagnoses Not on filedocumented in this encounter Additional Health Concerns Infection Onset Date Last Indicated Resolved Time COVID-19 Under Investigation 09/13/2024 09/13/2024 09/13/2024 6:36 AM CDT documented as of this encounter Care Teams Farm Management Teacher Relationship Specialty Start Date End Date Jeff Strickland MD [address] [place] [address] PCP - General 03/05/18 [place] [address] [address] Orthopedic Surgery 03/28/17 documented as of this encounter
--- OUTSIDE RECORDS SUMMARY | 2024-11-13 20:41 | XMS_ITS | Encounter Summary ---
Author Organization [facility] Address [address] [place] [address] Care Team Providers Care Cafeteria Clerk Name Role Phone Deandre Bojorquez MD Unavailable [phone] Jeff Strickland MD Primary Care Provider Encounter Details Date Type Department Care Team (Late st Contact Info) Description 09/24/2024 Results Follow-Up [facility] Early Admission Unit [address] [place] [phone] Angel Crook MD [address] [place] [address] Social History Tobacco Use Types Packs/Day Years [...] and heating? Not hard at all 09/24/2024 [facility] [place] of Occupat ional Health - Occupational Stress [...] PM CDT Legal Sex Male 10:14 PM AGENT TICKETING GATE Gender Identity Male 07/02/2021 2:37 PM CDT [...] Office Visit [facility] - Endocrinology [address] [place] [address], [place] [phone] Marbin Flores MD [address] [facility] DIV OF [place] [address] Niraj Turner MD [address] [place] [address] [place] [address] 2025 1:00 PM AGENT TICKETING GATE Office Visit [facility] - Neurology [address] [place] [address], [place] [phone] Becky Wilson MD [address] [place] [phone] documented as of this encounter Visit Diagnoses Not on filedocumented in this encounter Care Teams Cafeteria Clerk Relationship Specialty Start Date End Date Jeff Strickland MD [address] [place] [address] PCP - General 03/05/18 [place] [address] [facility] [address] [place] [address] Orthopedic Surgery 03/28/17 documented as of this encounter
--- OUTSIDE RECORDS SUMMARY | 2024-11-13 20:41 | XMS_ITS | Clinical Summary ---
Author Organization [facility] Address [address] [place] [address] Care Team Providers Care Title Camera Operator Name Role Phone Jeff Strickland [...] mouth daily. Active nystatin-triamc inolone (MYCOLOG II) 659273-1.1 UNIT/GM-% Cream 5 Active ondansetron (ZOFRAN-ODT) 4 [...] Telephone [facility] - Cardiology [facility] #[address] [place] [address] Suly Smith APRN, RESEARCH ENVIRONMENTAL ENGINEER 10/15/2024 Telephone [facility] Cardiology [facility] #[address] [place] [address] Hannah Goodman MD 10/14/2024 2:40 PM CDT Clinical Support [facility] Cardiology [facility] #[address] [place] [phone] [facility] Cardiology Dressing change (Primary Dx) Discharge [...] st Contact Info) Description 04/11/2025 11:30 AM TOPOLOGY TEACHER Office Visit [facility] - [facility] - [place] #[address] [place] [address] He Maylin, DO 2 [facility] [place] [address] [address] Health Maintenance Due Date Last Done Comments [...] topic Insurance MEDICARE C AETNA Care Teams Title Camera Operator Relationship Specialty Start Date End Date Jeff Strickland MD [address] [place] [address] PCP - General Family Medicine 10/14/24
--- OUTSIDE RECORDS SUMMARY | 2024-11-13 20:41 | XMS_ITS | Clinical Summary ---
Author Organization [facility] Address [address] [place] [address] Phone Care Team Providers Care Service Superintendent Name Role Phone Jeff Strickland MD Primary Care Provider [phone] Allergies No known active allergies Medications pantoprazole [...] tablet Take 112 mcg by mouth daily sex therapist. Active aspirin (ANGELLA) 325 mg tablet Take 325 mg by mouth daily. Active Vit C-Vit X-Aorvix-NhDa-L utein (PRESERVISION) 226 mg-200 unit -5 mg-0.8 [...] Comments Blood Pressure 167/77 02/04/2019 9:16 AM BUSINESS SERVICES INTERN Pulse 64 02/04/2019 9:16 AM BUSINESS SERVICES INTERN Temperature 36.5 C (97.7 F) 02/04/2019 9:16 AM BUSINESS SERVICES INTERN Respiratory Rate 16 02/04/2019 9:16 AM BUSINESS SERVICES INTERN Oxygen Saturation 97% 02/04/2019 9:16 AM BUSINESS SERVICES INTERN Inhaled Oxygen Concentration - - Weight 113.4 kg (250 lb) 02/04/2019 9:16 AM BUSINESS SERVICES INTERN Height 175.3 cm (5' 9) 02/04/2019 9:16 AM BUSINESS SERVICES INTERN Body Mass Index 36.92 02/04/2019 9:16 AM BUSINESS SERVICES INTERN Plan of Treatment Health Maintenance Due Date [...] ACCESS/TRUE BLUE PPO AETNA MEDICARE SUPPLEMENT PPO [facility] BLUE ACCESS/TRUE BLUE PPO Care Teams Service Superintendent Relationship Specialty Start Date End Date Jeff Strickland MD [address] [facility] [address] [place] [address] PCP - General Family Practice 01/01/19
--- OUTSIDE RECORDS SUMMARY | 2024-11-13 20:41 | XMS_ITS | Encounter Summary ---
Author Organization [facility] Address [address] [place] [address] Care Team Providers Care Hand Tube Bender Name Role Phone Deandre Bojorquez MD Unavailable [phone] Jeff Strickland MD Primary Care Provider [phone] Encounter Details Date Type Department Care Team (Late st Contact Info) Description 10/28/2023 Lab Requisition [facility] MAIN LAB [address] [place] [phone] Alan Davenport MD [facility] OF [place] [address] Social History Tobacco Use Types Packs/Day Years Used Date Smoking Tobacco: Never Smokeless Tobacco: Never Alcohol Use Standard Drinks/Week Comments Not Currently 0 (1 standard drink = 0.6 oz pur e alcohol) socially in past Sex and Gender Information Value Date Recorded Sex Assigned at Male 07/02/2021 2:37 PM CDT Legal Sex Male 10:14 PM OIL DISPENSER Gender Identity Male 07/02/2021 2:37 PM CDT [...] Visit [facility] - Endocrinology [address] [place] [address], [place] [address] Marbin Flores MD [address] [facility] DIV OF [place] [address] Niraj Turner MD [address] [place] [address] 2L [place] [address] 2025 1:00 PM OIL DISPENSER [facility] [address] [place] [address], [place] [address] Becky Wilson MD [address] [place] [phone] documented as of this encounter Procedures Procedure Name Priority Date/Time Associated Diagnosis Comments HOLD HLA SPECIMEN Routine 10/22/2023 3:5 0 PM CDT documented in this encounter Results * HOLD HLA SPECIMEN (10/22/2023 3:50 PM CDT) Hold HLA Specimen 10/28/2023 5:00 PM CDT [facility] Comment:The Hold HLA specime n has been received into the lab and will be held for 5 years at 4 degrees. Blood BLOOD SPECIMEN / Unknown 10/22/2023 3:50 PM CDT 10/28/2023 3:50 PM CDT us Alan Davenport MD LAB - BLOOD BANK ORDERABLES F inal Result [facility] [address] documented in this encounter Visit Diagnoses Not on filedocumented in this encounter Additional Health Concerns Infection Onset Date Last Indicated Resolved Time COVID-19 Under Investigation 09/13/2024 09/13/2024 09/13/2024 6:36 AM CDT documented as of this encounter Care Teams Hand Tube Bender Relationship Specialty Start Date End Date Jeff Strickland MD [address] [place] [address] PCP - General 03/05/18 [place] [address] [address] Orthopedic Surgery 03/28/17 documented as of this encounter
--- OUTSIDE RECORDS SUMMARY | 2024-11-13 20:41 | XMS_ITS | Clinical Summary ---
Author Organization [facility] Address [address], [place] [address] Phone Care Team Providers Care Thread Laster Name Role Phone Jeff Strickland MD Primary Care Provider [phone] Allergies No known active allergies Medications levothyroxine [...] tablet 3 0 Active Continuous Blood Gluc Hardware Engineer (FreeStyle Em Zortman) device 1 each daily 0 Active Continuous Blood Gluc Sensor (FreeStyle Em Sensor System) misc 1 each once every 2 weeks 0 Active Lancets (OneTouch Delica Plus [id number]) misc OneTouch Delica Plus Lancet 33 gauge [...] 11/10/2019 Overview (12/17/2019): Kendall Carl 1955 Referring Bounty Hunter: Alan Mccall Dialysis Info: NOD GFR 13 Type: Time: (Not currently on dialysis) days Blood Type: O NEG Body mass index is 37.36 kg/m . ALERTS Leather Colorer: needs to establish Past Medical History: Diagnosis Date Arthropathy RA. Dr Strickland manages. CHF (congestive heart failure) 2 yrs ago Basin Cleaner is Dr. Becerra in [place]. CKD (chronic kidney disease), stage V Community acquired pneumonia 2018 [facility] hospitalized. Diabetes mellitus 20 years. Lantus pen. Esophageal reflux takes med Hypercholesteremia 5-10 yrs meds Hypertension takes meds Hypothyroidism meds 20 years Kidney stones 5-6 years ago had 2 in the same year. Malignancy right kidney 2012 Obstructive sleep apnea 3 years. [facility]. Angeal remember doctors name Renal cell carcinoma 2012 [...] of this hospice social worker that Kendall Gillris has several positive factors for Kidney transplant candidacy from a psychosocial perspective. Patient appears to have appropriate knowledge of illness. Patient has sufficient insurance coverage and stable financial situation for post transplant needs. No concerns regarding substance abuse, legal issues, or mental health needs. Patient has adequate support system and appropriate discharge plan. Plan: rattan worker to provide supportive services as needed. Patient appears to be a reasonable candidate for transplant from a psychosocial perspective. -Post transplant arrangement forms are needed prior to being listed. -Updated toxicology results needed, per protocol Psychiatric Consult Recommended: No Transplant Intensivist: Joy Tam LCSW RD: 11/09/2019 BMI= 36.2, [...] use my fitness pal or my food baseball coach) - Consume no more than [...] nephrectomy. 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 [id number] Immunizations Immunization Administration Dates Next Due Influenza [...] Insurance AETNA PM INTERFACED INSURANCE Care Teams Thread Laster Relationship Specialty Start Date End Date Jeff Strickland MD [address] [facility] [address] [facility] [address] [place] [address] PCP - General Internal Medicine 07/15/18
--- OUTSIDE RECORDS SUMMARY | 2024-11-13 20:41 | XMS_ITS | Encounter Summary ---
Author Organization [facility] Address [facility] [place] [address] Care Team Providers Care Seat Covers Trimmer Name Role Phone Deandre Bojorquez MD Unavailable Jeff Strickland MD Primary Care Provider [phone] Encounter Details Date Type Department Care Team (Late st Contact Info) Description 07/31/2023 Lab Requisition [facility] MAIN LAB [address] [place] [phone] Alan Davenport MD [facility] [address] [facility] [place] [address] Social History Tobacco Use Types Packs/Day Years Used Date Smoking Tobacco: Never Smokeless Tobacco: Never Alcohol Use Standard Drinks/Week Comments Not Currently 0 (1 standard drink = 0.6 oz pur e alcohol) socially in past Sex and Gender Information Value Date Recorded Sex Assigned at Male 07/02/2021 2:37 PM CDT Legal Sex Male 10:14 PM SILVER BUFFER Gender Identity Male 07/02/2021 2:37 PM CDT [...] Office Visit [facility] - Endocrinology [address] [place] [address], [place] [address] Marbin Flores MD [address] [facility] DIV [place] [address] Niraj Turner MD [address] [place] [address] 2L [place] [address] 2025 1:00 PM SILVER BUFFER Office Visit [facility] Group - Neurology [address] [place] [address], [place] [address] Becky Wilson MD [address] [place] [phone] documented as of this encounter Procedures Procedure Name Priority Date/Time Associated Diagnosis Comments HOLD HLA SPECIMEN Routine 07/23/2023 2:0 5 PM CDT documented in this encounter Results * HOLD HLA SPECIMEN (07/23/2023 2:05 PM CDT) Hold HLA Specimen 07/31/2023 3:32 PM CDT [facility] Comment:The Hold HLA specime n has been received into the lab and will be held for 5 years at 4 degrees. Blood BLOOD SPECIMEN / Unknown 07/23/2023 2:05 PM CDT 07/31/2023 2:06 PM CDT us lAan Davenport MD LAB - BLOOD BANK ORDERABLES F inal Result [facility] [address] documented in this encounter Visit Diagnoses Not on filedocumented in this encounter Additional Health Concerns Infection Onset Date Last Indicated Resolved Time COVID-19 Under Investigation 09/13/2024 09/13/2024 09/13/2024 6:36 AM CDT documented as of this encounter Care Teams Seat Covers Trimmer Relationship Specialty Start Date End Date Jeff Strickland MD [address] [place] [address] PCP - General 03/05/18 [place] [address] [address] Orthopedic Surgery 03/28/17 documented as of this encounter
--- OUTSIDE RECORDS SUMMARY | 2024-11-13 20:41 | XMS_ITS | Encounter Summary ---
Author Organization [facility] Healthcare Address [address] [place] [address] Care Team Providers Care Ambulatory Analyst Name Role Phone Jeff Strickland MD Primary Care Provider Chan Nicholas MD Unavailable [phone] Alan Mccall MD Unavailable [phone] Pepito Haro MD PhD Unavailable Solange Guido MD Unavailable [phone] Encounter Details Date Type Department Care Team (Late st Contact Info) Description 07/28/2024 Orders Only [facility] Health Information Management [address] [place] [address] Scanning, Provider Social History Tobacco Use Types Packs/Day Years Used Date Smoking Tobacco: Never Smokeless Tobacco: Never Alcohol Use Standard Drinks/Week Comments Yes 0 (1 standard drink = 0.6 oz pur e alcohol) rarely [facility] Utilities Answer Date Recorded In the past 12 months has [employer] electric, gas, oil, or water company threatened [...] often do you attend chur ch or sikhism services? 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 Gender Identity Not on file Sexual Orientation [...] on filedocumented in this encounter Care Teams Ambulatory Analyst Relationship Specialty Start Date End Date Jeff Strickland MD [facility] [address] [place] [phone] PCP - General Family Medicine 04/02/18 Chan Nicholas MD [facility] [address] [address] Consulting Physician Gastroenterology 11/24/18 Alan Mccall MD [facility] [address] [address] Referring Physician Nephrology 11/24/18 Pepito Haro MD PhD [address] [place] [address] Consulting Physician Neurosurgery 12/03/22 Solange Guido MD [address] [facility] [address] [place] [address] Referring Physician Cardiovascular Disease 07/23/23 documented as of this encounter
--- OUTSIDE RECORDS SUMMARY | 2024-11-13 20:41 | XMS_ITS | Encounter Summary ---
Author Organization [facility] Address [facility] [place] [address] Care Team Providers Care Strap Folding Machine Operator Name Role Phone Deandre Bojorquez MD Unavailable [phone] Jeff Strickland MD Primary Care Provider [phone] Encounter Details Date Type Department Care Team (Late st Contact Info) Description 04/10/2023 Lab Requisition [facility] MAIN LAB [address] [place] [phone] Alan Davenport MD [facility] OF ABD [place] [address] Social History Tobacco Use Types Packs/Day Years Used Date Smoking Tobacco: Never Smokeless Tobacco: Never Alcohol Use Standard Drinks/Week Comments Not Currently 0 (1 standard drink = 0.6 oz pur e alcohol) socially in past Sex and Gender Information Value Date Recorded Sex Assigned at Male 07/02/2021 2:37 PM CDT Legal Sex Male 10:14 PM INTERNAL AUDITOR Gender Identity Male 07/02/2021 2:37 PM [...] 08/04/2020 12:15 PM CDT Monique Suárze RN * Does person have serious difficulty [...] Description 12/06/2024 10:40 AM CDT [facility] [address] [place] [address], [place] [address] Marbin Flores MD [address] [facility] DIV OF ABD [place] [address] Niraj Turner MD [address] [place] [address] 2L [place] [address] 2025 1:00 PM INTERNAL AUDITOR Office Visit [facility] - Neurology [address] [place] [address], [place] [address] Becky Wilson MD [address] [place] [phone] documented as of this encounter Procedures Procedure Name Priority Date/Time Associated Diagnosis Comments HOLD HLA SPECIMEN Routine 04/02/2023 3:0 1 PM INTERNAL AUDITOR documented in this encounter Results * HOLD HLA SPECIMEN (04/02/2023 3:01 PM INTERNAL AUDITOR) Hold HLA Specimen 04/10/2023 4:01 PM INTERNAL AUDITOR [facility] Comment:The Hold HLA specime n has been received into the lab and will be held for 5 years at 4 degrees. Blood BLOOD SPECIMEN / Unknown 04/02/2023 3:01 PM INTERNAL AUDITOR 04/10/2023 3:01 PM INTERNAL AUDITOR Alan Davenport MD LAB - BLOOD BANK ORDERABLES F inal Result [facility] [address] documented in this encounter Visit Diagnoses Not on filedocumented in this encounter Additional Health Concerns Infection Onset Date Last Indicated Resolved Time COVID-19 Under Investigation 09/13/2024 09/13/2024 09/13/2024 6:36 AM CDT documented as of this encounter Care Teams Strap Folding Machine Operator Relationship Specialty Start Date End Date Jeff Strickland MD [address] [place] [address] PCP - General 03/05/18 [place] [address] [address] Orthopedic Surgery 03/28/17 documented as of this encounter
--- OUTSIDE RECORDS SUMMARY | 2024-11-13 20:41 | XMS_ITS | Encounter Summary ---
Author Organization [facility] Address [address] [place] [address] Phone Care Team Providers Care Structural Steel Fitter Name Role Phone Jeff Strickland MD Primary Care Provider Chan Nicholas MD Unavailable [phone] Alan Mccall MD Unavailable [phone] Lorna Lantigua MD Unavailable Juliette Savage RN Unavailable Pepito Haro MD PhD Unavailable Solange Guido MD Unavailable Letha Gil RN Unavailable Encounter Details Date Type Department Care Team (Late st Contact Info) Description 05/02/2021 Ophth Exam [facility] Medicine Ophthalmology [address] [place] [address] 1st [place] [phone] Corina Ventura MD PhD [address] [address] Social History Tobacco Use Types [...] on file 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 04/08/2023 04/10/2023 07/07/2023 3:06 AM C DT COVID: Suspected 04/10/2024 04/10/2024 04/11/2024 1:24 AM STEAMTABLE ATTENDANT RAILROAD C. difficile suspected 04/11/2024 04/11/202404/11 1:21 PM STEAMTABLE ATTENDANT RAILROAD documented as of this encounter Eye Exam [...] arcade Normal Periphery Normal Normal Care Teams Structural Steel Fitter Relationship Specialty Start Date End Date Jeff Strickland MD [address] [address] PCP - General Family Medicine 04/02/18 Chan Nicholas MD [address] [place] [address] [address] [phone] Consulting Physician Gastroenterology 11/24/18 Alan Mccall MD [address] [place] [address] [address] [address] Referring Physician Nephrology 11/24/18 Lorna Lantigua MD [facility] [address] [address] Consulting Physician Cardiology 11/24/18 07/22/23 Juliette Savage, RN [address] [place] [address] Nurse Navigator 06/04/21 03/14/22 Pepito Haro MD PhD [address] [place] [address] Consulting Physician Neurosurgery 12/03/22 Solange Guido MD [address] [facility] [address] [place] [address] Referring Physician Cardiovascular Disease 07/23/23 Letha Gil, RN 45[address] [facility] 5300 [place] [address] SHOP Outpatient Pulp Cooker 04/14/24 04/18/24 documented as of this encounter
--- OUTSIDE RECORDS SUMMARY | 2024-11-13 20:41 | XMS_ITS | Encounter Summary ---
Author Organization [facility] Address [facility]3 [place] [address] Care Team Providers Care Drainage Engineer Name Role Phone Deadnre Bojorquez MD Unavailable [phone] Jeff Strickland MD Primary Care Provider [phone] Encounter Details Date Type Department Care Team (Late st Contact Info) Description 11/21/2023 Lab Requisition [facility] MAIN LAB [address] [place] [phone] Alan Davenport MD [facility] OF [place] [address] Social History Tobacco Use Types Packs/Day Years Used Date Smoking Tobacco: Never Smokeless Tobacco: Never Alcohol Use Standard Drinks/Week Comments Not Currently 0 (1 standard drink = 0.6 oz pur e alcohol) socially in past Sex and Gender Information Value Date Recorded Sex Assigned at Male 07/02/2021 2:37 PM CDT Legal Sex Male 10:14 PM CONTINUING EDUCATION INSTRUCTOR Gender Identity Male 07/02/2021 2:37 PM [...] Office Visit [facility] - Endocrinology [address] [place] [address], [place] [address] Marbin Flores MD 12[address] [facility] DIV OF [place] [address] Niraj Turner MD [address] [place] [address] 2L [place] [address] 2025 1:00 PM CONTINUING EDUCATION INSTRUCTOR [facility] [address] [place] [address], [place] [address] Becky Wilson MD [address] [place] [phone] documented as of this encounter Procedures Procedure Name Priority Date/Time Associated Diagnosis Comments HOLD HLA SPECIMEN Routine 11/18/2023 12: 16 PM CDT documented in this encounter Results * HOLD HLA SPECIMEN (11/18/2023 12:16 PM CDT) Hold HLA Specimen 11/21/2023 1:31 PM CDT [facility] Comment:The Hold HLA specime n has been received into the lab and will be held for 5 years at 4 degrees. Blood BLOOD SPECIMEN / Unknown 11/18/2023 12:16 PM CDT 11/21/2023 12:17 PM CDT us Alan Davenport MD LAB - BLOOD BANK ORDERABLES F inal Result [facility] [address] documented in this encounter Visit Diagnoses Not on filedocumented in this encounter Additional Health Concerns Infection Onset Date Last Indicated Resolved Time COVID-19 Under Investigation 09/13/2024 09/13/2024 09/13/2024 6:36 AM CDT documented as of this encounter Care Teams Drainage Engineer Relationship Specialty Start Date End Date Jeff Strickland MD [address] [place] [address] PCP - General 03/05/18 [place] [address] [address] Orthopedic Surgery 03/28/17 documented as of this encounter
--- OUTSIDE RECORDS SUMMARY | 2024-11-13 20:41 | XMS_ITS | Encounter Summary ---
Author Organization [facility] Address [facility]3 [place] [address] Care Team Providers Care Engineering And Operations Director Name Role Phone Deandre Bojorquez MD Unavailable [phone] Jeff Strickland MD Primary Care Provider [phone] Encounter Details Date Type Department Care Team (Late st Contact Info) Description 09/30/2023 Lab Requisition [facility] MAIN LAB [address] [place] [phone] Alan Davenport MD [facility] OF ABD TR[place] [address] Social History Tobacco Use Types Packs/Day Years Used Date Smoking Tobacco: Never Smokeless Tobacco: Never Alcohol Use Standard Drinks/Week Comments Not Currently 0 (1 standard drink = 0.6 oz pur e alcohol) socially in past Sex and Gender Information Value Date Recorded Sex Assigned at Male 07/02/2021 2:37 PM CDT Legal Sex Male 10:14 PM VINER OPERATOR Gender Identity Male 07/02/2021 2:37 PM [...] Office Visit [facility] - Endocrinology [address] [place] [address], [place] [address] Marbin Flores MD 1201 [facility] DIV OF ABD [place] [address] Niraj Turner MD [address] [place] [address] 2L [place] [address] 2025 1:00 PM VINER OPERATOR [facility] [address] [place] [address], [place] [address] Becky Wilson MD [address] [place] [phone] documented as of this encounter Procedures Procedure Name Priority Date/Time Associated Diagnosis Comments HOLD HLA SPECIMEN Routine 09/24/2023 3:2 7 PM CDT documented in this encounter Results * HOLD HLA SPECIMEN (09/24/2023 3:27 PM CDT) Hold HLA Specimen 09/30/2023 4:32 PM CDT [facility] Comment:The Hold HLA specime n has been received into the lab and will be held for 5 years at 4 degrees. Blood BLOOD SPECIMEN / Unknown 09/24/2023 3:27 PM CDT 09/30/2023 3:27 PM CDT us Alan Davenport MD LAB - BLOOD BANK ORDERABLES F inal Result [facility] [address] documented in this encounter Visit Diagnoses Not on filedocumented in this encounter Additional Health Concerns Infection Onset Date Last Indicated Resolved Time COVID-19 Under Investigation 09/13/2024 09/13/2024 09/13/2024 6:36 AM CDT documented as of this encounter Care Teams Engineering And Operations Director Relationship Specialty Start Date End Date Jeff Strickland MD [address] [place] [address] PCP - General 03/05/18 [place] [address] [address] Orthopedic Surgery 03/28/17 documented as of this encounter
--- OUTSIDE RECORDS SUMMARY | 2024-11-13 20:41 | XMS_ITS | Encounter Summary ---
Author Organization [facility] Address [address] [place] [address] Care Team Providers Care Geochemical Laboratory Technician Name Role Phone Deandre Bojorquez MD Unavailable [phone] Jeff Strickland MD Primary Care Provider [phone] Encounter Details Date Type Department Care Team (Late st Contact Info) Description 02/07/2023 Lab Requisition [facility] MAIN LAB [address] [place] [phone] Alan Davenport MD [facility] OF [place] [address] Social History Tobacco Use Types Packs/Day Years Used Date Smoking Tobacco: Never Smokeless Tobacco: Never Alcohol Use Standard Drinks/Week Comments Not Currently 0 (1 standard drink = 0.6 oz pur e alcohol) socially in past Sex and Gender Information Value Date Recorded Sex Assigned at Male 07/02/2021 2:37 PM CDT Legal Sex Male 10:14 PM LABORER SHELLFISH PROCESSING Gender Identity Male 07/02/2021 2:37 PM CDT [...] Description 12/06/2024 10:40 AM CDT [facility] [address] [place] [address], [place] [address] Marbin Flores MD 1201 [facility] DIV OF [place] [address] Niraj Turner MD [address] [place] [address] 2L [place] [address] 2025 1:00 PM LABORER SHELLFISH PROCESSING Office Visit [facility] - Neurology [address] [place] [address] [address] Becky Wilson MD [address] [place] [phone] documented as of this encounter Procedures Procedure Name Priority Date/Time Associated Diagnosis Comments HOLD HLA SPECIMEN Routine 2023 7:5 8 AM LABORER SHELLFISH PROCESSING documented in this encounter Results * HOLD HLA SPECIMEN (2023 7:58 AM LABORER SHELLFISH PROCESSING) Hold HLA Specimen 02/07/2023 9:01 AM LABORER SHELLFISH PROCESSING [facility] Comment:The Hold HLA specime n has been received into the lab and will be held for 5 years at 4 degrees. Blood BLOOD SPECIMEN / Unknown 2023 7:58 AM LABORER SHELLFISH PROCESSING 02/07/2023 7:59 AM LABORER SHELLFISH PROCESSING us Alan Davenport MD LAB - BLOOD BANK ORDERABLES F inal Result [facility] [address] documented in this encounter Visit Diagnoses Not on filedocumented in this encounter Additional Health Concerns Infection Onset Date Last Indicated Resolved Time COVID-19 Under Investigation 09/13/2024 09/13/2024 09/13/2024 6:36 AM CDT documented as of this encounter Care Teams Geochemical Laboratory Technician Relationship Specialty Start Date End Date Jeff Strickland MD [address] [place] [address] PCP - General 03/05/18 [place] [address] [address] Orthopedic Surgery 03/28/17 documented as of this encounter
--- OUTSIDE RECORDS SUMMARY | 2024-11-13 20:41 | XMS_ITS | Encounter Summary ---
Author Organization [facility] Address [address] [place] [address] Care Team Providers Care Hand Spring Repairer Helper Name Role Phone Deandre Bojorquez MD Unavailable Jeff Strickland MD Primary Care Provider [phone] Encounter Details Date Type Department Care Team (Late st Contact Info) Description 06/25/2024 Lab Requisition [facility] MAIN LAB [address] [place] [phone] Alan Davenport MD [facility] OF [place] [address] Social History Tobacco Use Types Packs/Day Years Used Date Smoking Tobacco: Never Smokeless Tobacco: Never Alcohol Use Standard Drinks/Week Comments Not Currently 0 (1 standard drink = 0.6 oz pur e alcohol) socially in past Sex and Gender Information Value Date Recorded Sex Assigned at Male 07/02/2021 2:37 PM CDT Legal Sex Male 10:14 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 LOAN 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 Gender Identity Male 07/02/2021 2:37 PM [...] Office Visit [facility] - Endocrinology [address] [place] [address], [place] [address] Marbin Flores MD 1201 [facility] DIV OF [place] [address] Niraj Turner MD [address] [place] [address] 2L [place] [address] 2025 1:00 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 LOAN OFFICER [facility] [address] [place] [address], [place] [address] Becky Wilson MD [address] [place] [phone] documented as of this encounter Procedures Procedure Name Priority Date/Time Associated Diagnosis Comments HOLD HLA SPECIMEN Routine 06/22/2024 11: 05 AM CDT documented in this encounter Results * HOLD HLA SPECIMEN (06/22/2024 11:05 AM CDT) Hold HLA Specimen 06/25/2024 12:32 PM CDT [facility] Comment:The Hold HLA specime n has been received into the lab and will be held for 5 years at 4 degrees. Blood BLOOD SPECIMEN / Unknown 06/22/2024 11:05 AM CDT 06/25/2024 11:05 AM CDT us Alan Davenport MD LAB - BLOOD BANK ORDERABLES F inal Result [facility] [address] documented in this encounter Visit Diagnoses Not on filedocumented in this encounter Additional Health Concerns Infection Onset Date Last Indicated Resolved Time COVID-19 Under Investigation 09/13/2024 09/13/2024 09/13/2024 6:36 AM CDT documented as of this encounter Care Teams Hand Spring Repairer Helper Relationship Specialty Start Date End Date Jeff Strickland MD [address] [place] [address] PCP - General 03/05/18 [place] [address] [address] Orthopedic Surgery 03/28/17 documented as of this encounter
--- OUTSIDE RECORDS SUMMARY | 2024-11-13 20:41 | XMS_ITS | Encounter Summary ---
Author Organization [facility] Address [address] [place] [address] Care Team Providers Care Emergency Room Registered Nurse Name Role Phone Deandre Bojorquez MD Unavailable [phone] Jeff Strickland MD Primary Care Provider [phone] Encounter Details Date Type Department Care Team (Late st Contact Info) Description 09/10/2024 Telephone [facility] - Centralized Scheduling [facility]1 [place] [address] Niraj Turner MD [facility] [place] [address] Social History Tobacco Use Types Packs/Day Years [...] and heating? Not hard at all 09/14/2024 [facility] of Occupat [facility] - [...] PM CDT Legal Sex Male 10:14 PM POULTRY PROCESSOR Gender Identity Male 07/02/2021 2:37 PM CDT [...] Visit [facility] - Endocrinology [address] [place] [address], [place] [phone] Marbin Flores MD [address] [facility] DIV OF [place] [address] Niraj Turner MD [address] [place] [address] [place] [address] 2025 1:00 PM POULTRY PROCESSOR Office Visit [facility] - Neurology [address] [place] [address], [place] [phone] Becky Wilson MD [address] [place] [phone] documented as of this encounter Visit Diagnoses Not on filedocumented in this encounter Additional Health Concerns Infection Onset Date Last Indicated Resolved Time COVID-19 Under Investigation 09/13/2024 09/13/2024 09/13/2024 6:36 AM CDT documented as of this encounter Care Teams Emergency Room Registered Nurse Relationship Specialty Start Date End Date Jeff Strickland MD [address] [place] [address] PCP - General 03/05/18 [place] [address] [facility] [address] [place] [address] Orthopedic Surgery 03/28/17 documented as of this encounter
--- OUTSIDE RECORDS SUMMARY | 2024-11-13 20:41 | XMS_ITS | Encounter Summary ---
Author Organization [facility] Healthcare Address [address] [place] [address] Care Team Providers Care Clinical Documentation Improvement Specialist Name Role Phone Jeff Strickland MD Primary Care Provider Chan Nicholas MD Unavailable [phone] Alan Mccall MD Unavailable [phone] Pepito Haro MD PhD Unavailable Solange Guido MD Unavailable [phone] Encounter Details Date Type Department Care Team (Late st Contact Info) Description 07/26/2024 Orders Only [facility] Health Information Management [address] [place] [address] Scanning, Provider Social History Tobacco Use Types Packs/Day Years Used Date Smoking Tobacco: Never Smokeless Tobacco: Never Alcohol Use Standard Drinks/Week Comments Yes 0 (1 standard drink = 0.6 oz pur e alcohol) rarely [facility] Utilities Answer Date Recorded In the past 12 months has [email or web address] electric, gas, oil, or water company threatened [...] often do you attend chur ch or pentecostalism services? 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 [address] [place] [phone] Consulting Physician Neurosurgery 12/03/22 Solange Guido MD [address] [facility] [address] [place] [address] Referring Physician Cardiovascular Disease 07/23/23 documented as of this encounter
--- OUTSIDE RECORDS SUMMARY | 2024-11-13 20:41 | XMS_ITS | Clinical Summary ---
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 coronary artery of [place] heart, unspecified whether angina present from Last 3 Months or Most Recently Relevant to Health Maintenance Results * IR Angiogram Bilateral Leg (11/12/2024 9:06 AM CDT) Anatomical Region Laterality Modality Lower Extremity X-Ray Angiograph y 11/12/2024 9:47 AM CDT Impressions 11/12/2024 3:38 PM CDT IMPRESSION: Left lower extremity angiogram with patent STEMMER MACHINE, SFA with areas of < 50% stenosis, patent TP trunk with occlusions in the peroneal and PT shortly after origin, with single vessel runoff to the foot via the AT with occlusion in the DP in the foot. Right lower extremity angiogram with patent STEMMER MACHINE, SFA, and TP trunk with an occluded [...] Owusu 11/12/2024 9:47 AM > Dictated by Outer Diameter Grinder I, Elroy Holcomb MD have personally reviewed [...] monitored moderate sedation ATTENDING: Elroy Holcomb MD COATER OPERATOR: Griffin Rodriguez MD; Elroy Owusu MD ANESTHESIA: [...] exchanges this was upsized for a 5 English sheath. A guidewire and omniflush catheter were [...] evaluation, please review the evaluation forms in [facility]. For details on monitored clinical parameters during the intra-service sedation time, please review the procedure nurse documentation in [facility]. Procedure Note Elroy Holcomb MD - 11/12/2024 [...] monitored moderate sedation ATTENDING: Elroy Holcomb MD COATER OPERATOR: Griffin Rodriguez MD; Elroy Owusu MD ANESTHESIA: [...] of exchanges thiswas upsized for a 5 English sheath. A guidewire and omniflush catheter werethen [...] evaluation, please review the evaluation forms in [facility]. For details on monitored clinical parameters during the intra-service sedation time, please review the procedure nurse documentation in [facility]. IMPRESSION: Left lower extremity angiogram with patent STEMMER MACHINE, SFA with areas of < 50% stenosis, patent TP trunk with occlusions in the peroneal and PT shortly after origin, with single vessel runoff to the foot via the AT with occlusion in the DP in the foot. Right lower extremity angiogram with patent STEMMER MACHINE, SFA, and TP trunk with an occluded AT distally, andocclusion in peroneal at level of ankle, and multifocal areas of stenosis in thePT which appears occluded at the level of the ankle. Successful deploymentof 5 Fr Mynx control closure device. Total fluoroscopy time of 4.2min. Total contrast usage of 60mL > Dictated by Elroy Owusu 11/12/2024 9:47 AM > Dictated by Outer Diameter Grinder I, Elroy Holcomb MD have personally reviewed and interpreted this examination/study. > Interpreting Provider: Elroy Holcomb MD on 11/12/2024 3:38 PM us Elroy Holcomb MD IR ORDERABLES Final Resu lt * (ABNORMAL) BASIC METABOLIC PANEL (CALCIUM TOTAL) (11/12/2024 7:11 AM CDT) Only the most recent of7 resultswithin the time period is included. BUN 28(H) 7 - 26 mg/dL 11/12/2024 7:59 AM [facility] Creatinine 7.33(H) 0.71 - 1.16 mg/dL 11/12/2024 7:59 AM [facility] Sodium 138 136 - 145 mmol/L 11/12/2024 7:59 AM [facility] Potassium 3.5 3.5 - 4.5 mmol/L 11/12/2024 7:59 AM [facility] Chloride 97(L) 98 - 107 mmol/L 11/12/2024 7:59 AM [facility] CO2 25 22 - 29 mmol/L 11/12/2024 7:59 AM [facility] Glucose 164(H) 70 - 99 mg/dL 11/12/2024 7:59 AM [facility] Calcium 7.8(L) 8.4 - 10.2 mg/dL 11/12/2024 7:59 AM [facility] Anion Gap 16 6 - 16 11/12/2024 7:59 AM [facility] BUN/Creatinine Ratio 4(L) 7 - 23 11/12/2024 7:59 AM [facility] Osmolality Calculated 295 275 - 295 mOsm/kg 11/12/2024 7:59 AM [facility] eGFR by CKD-EPI 8(L) >=90 mL/min/1.7 3 m2 11/12/2024 7:59 AM [facility] Comment:Estimated Glomerular Filtration Rate (eGFR) calculated using the CKD-EPI Creatinine Equation (2020), per the National Kidney Foundation and [place] [employer] Nephrology recommendations. Blood BLOOD SPECIMEN / Unknown Lab Venipuncture / Unknown 11/12/2024 7:11 AM CDT 11/12/2024 7:44 AM [facility][NOTE 3] Elroy Holcomb MD LAB - CHEMISTRY ORDERABLES Final Result [facility] [address] [place] [address], [facility] [phone] * (ABNORMAL) GLUCOSE - POINT OF CARE (11/12/2024 7:05 AM CDT) Only the most recent of56 resultswithin the time period is included. Glucose WB/POC 193(H) 70 - 99 mg/dL 11/12/2024 7:06 AM CDT [facility] Specimen Type Venous 11/12/2024 7:06 AM CDT [facility] Blood BLOOD SPECIMEN / Unknown 11/12/2024 7:05 AM CDT 11/12/2024 7:06 AM CDT us Elroy Holcomb MD LAB - POINT OF CARE ORDERA BLES Final Result Performing Organization Address City/[facility]/ZIP Co de Phone Number [address] [address], [facility] [phone] * CARDIAC EKG ORDER (10/29/2024 4:31 PM [...] The Chronically Ill Troponin I High Sensitive 71(H) <=35 ng/L 10/28/2024 3:13 AM CDT [facility] Delta Troponin I HS 10/28/2024 3:13 AM CDT [facility] Comment:Delta value intentio tito not calculated. Baseline to 1 hour specimen collection interval exceeded. Blood BLOOD SPECIMEN / Unknown Venipuncture / Unknown 10/28/2024 2:31 AM CDT 10/28/2024 2:37 AM CDT us Savanna Mcfarlane MD LAB - CHEMISTRY ORDERABLES Fi nal Result Performing Organization Address City/[facility]/ZIP Co de Phone Number [address] [address], [place] [phone] * LACTIC ACID BLOOD REFLEX TO REPEAT (10/28/2024 2:31 AM CDT) Only the most recent of5 resultswithin the time period is included. Lactic Acid-Stat 1.9 <=2.0 mmol/L 10/28/2024 3:06 AM CDT [facility] Blood BLOOD SPECIMEN / Unknown Venipuncture / Unknown 10/28/2024 2:31 AM CDT 10/28/2024 2:37 AM CDT us Savanna Mcfarlane MD LAB - CHEMISTRY ORDERABLES nal Result [facility] [address] [place] [address], [facility] [phone] * XR Chest 2Vw (10/27/2024 11:58 PM CDT) Only the most recent of4 resultswithin the time period is included. Anatomical Region Laterality Modality Chest Digital Radiogra phy 10/28/2024 12:0 2 AM CDT Narrative 10/28/2024 3:32 AM CDT PROCEDURE: XR CHEST 2VW, DATE/TIME OF EXAM: 10/27/2024 11:58 PM, LOCATION [facility] INDICATION: R07.9: Chest pain, unspecified type [...] > Dictated by Branden Jha MD, (radiology physician assistant). > Dictated by Outer Diameter Grinder I, Blake Plasencia MD have personally reviewed and interpreted this examination/study. > Interpreting Provider: Blake Plasencia MD on 10/28/2024 3:32 AM Procedure Note Blake Plasencia MD - 10/28/2024 PROCEDURE: XR CHEST 2VW, DATE/TIME OF EXAM: 10/27/2024 11:58 PM, LOCATION [facility] INDICATION: R07.9: Chest pain, unspecified type [...] > Dictated by Branden Jha MD, (radiology physician assistant). > Dictated by Outer Diameter Grinder I, Blake Plasencia MD have personally reviewed and interpreted this examination/study. > Interpreting Provider: Blake Plasencia MD on 10/28/2024 3:32 AM Savanna Mcfarlane MD DIAGNOSTIC IMAGING ORDERABLES Final Result * (ABNORMAL) TROPONIN-I HIGH SENSITIVE BASELINE + 1HR (10/27/2024 11:53 PM CDT) Only the most recent of8 resultswithin the time period is included. [facility] Troponin I High Sensitive 72(H) <=35 ng/L 10/28/2024 12:49 AM CDT [facility] Blood BLOOD SPECIMEN / Unknown Venipuncture / Unknown 10/27/2024 11:53 PM CDT 10/28/2024 12:12 AM CDT Savanna Mcfarlane MD LAB - CHEMISTRY ORDERABLES Fi nal Result [address] [address], [place] [phone] * (ABNORMAL) CBC W AUTO DIFFERENTIAL (10/27/2024 11:53 PM CDT) Only the most recent of11 resultswithin the time period is included. [facility] WBC 7.8 4.0 - 10.7 x10E9/L 10/28/2024 12:26 AM [facility] RBC Count 3.31(L) 4.30 - 5.80 x10E12/L 10/28/2024 12:26 AM [facility] Hemoglobin 9.0(L) 13.3 - 17.5 g/dL 10/28/2024 12:26 AM [facility] Hematocrit 27.9(L) 38.7 - 51.1 % 10/28/2024 12:26 AM [facility] MCV 84.3 80.0 - 98.0 fL 10/28/2024 12:26 AM [facility] MCH 27.2 26.7 - 33.6 pg 10/28/2024 12:26 AM [facility] MCHC 32.3 31.7 - 36.3 g/dL 10/28/2024 12:26 AM [facility] RDW-CV 15.9(H) 11.3 - 14.8 % 10/28/2024 12:26 AM [facility] Platelet Count 187 150 - 420 x10E9/L 10/28/2024 12:26 AM [facility] MPV 10.2 7.8 - 11.4 fL 10/28/2024 12:26 AM [facility] Neutrophil % 67.0 41.0 - 74.0 % 10/28/2024 12:26 AM [facility] Lymphocyte % 16.4(L) 17.0 - 47.0 % 10/28/2024 12:26 AM [facility] Monocyte % 14.0(H) 3.0 - 11.0 % 10/28/2024 12:26 AM [facility] Eosinophil % 1.9 0.0 - 7.0 % 10/28/2024 12:26 AM [facility] Basophil % 0.1 0.0 - 1.6 % 10/28/2024 12:26 AM [facility] Immature Granulocytes % 0.6 0.0 - 1.0 % 10/28/2024 12:26 AM [facility] Neutrophil Absolute 5.23 1.60 - 7.50 x10E9/L 10/28/2024 12:26 AM [facility] Lymphocyte Absolute 1.28 1.00 - 4.40 x10E9/L 10/28/2024 12:26 AM [facility] Monocyte Absolute 1.09(H) 0.15 - 1.00 x10E9/L 10/28/2024 12:26 AM [facility] Eosinophil Absolute 0.15 0.00 - 0.60 x10E9/L 10/28/2024 12:26 AM [facility] Basophil Absolute 0.01 0.00 - 0.13 x10E9/L 10/28/2024 12:26 AM [facility] Blood BLOOD SPECIMEN / Unknown Venipuncture / Unknown 10/27/2024 11:53 PM CDT 10/28/2024 12:13 AM CDT us Savanna Mcfarlane MD LAB - HEMATOLOGY ORDERABLES F inal Result [facility] [address] [place] [address], [facility] [phone] * (ABNORMAL) COMPREHENSIVE METABOLIC PANEL (10/27/2024 11:53 PM CDT) Only the most recent of13 resultswithin the time period is included. BUN 34(H) 7 - 26 mg/dL 10/28/2024 12:45 AM [facility] Creatinine 7.86(H) 0.71 - 1.16 mg/dL 10/28/2024 12:45 AM [facility] Sodium 132(L) 136 - 145 mmol/L 10/28/2024 12:45 AM [facility] Potassium 3.5 3.5 - 4.5 mmol/L 10/28/2024 12:45 AM [facility] Chloride 95(L) 98 - 107 mmol/L 10/28/2024 12:45 AM [facility] CO2 25 22 - 29 mmol/L 10/28/2024 12:45 AM [facility] Glucose 104(H) 70 - 99 mg/dL 10/28/2024 12:45 AM [facility] Calcium 8.5 8.4 - 10.2 mg/dL 10/28/2024 12:45 AM [facility] Protein Total 5.6(L) 6.0 - 8.3 g/dL 10/28/2024 12:45 AM [facility] Albumin 2.2(L) 3.4 - 5.0 g/dL 10/28/2024 12:45 AM [facility] Bilirubin Total 0.3 0.2 - 1.2 mg/dL 10/28/2024 12:45 AM [facility] Alkaline Phosphatase 104 40 - 150 U/L 10/28/2024 12:45 AM [facility] ALT 56(H) 5 - 55 U/L 10/28/2024 12:45 AM [facility] AST 48(H) 5 - 34 U/L 10/28/2024 12:45 AM [facility] Anion Gap 12 6 - 16 10/28/2024 12:45 AM [facility] BUN/Creatinine Ratio 4(L) 7 - 23 10/28/2024 12:45 AM [facility] Osmolality Calculated 282 275 - 295 mOsm/kg 10/28/2024 12:45 AM [facility] Albumin/Globulin Ratio 0.6(L) 1.1 - 2.3 10/28/2024 12:45 AM [facility] eGFR by CKD-EPI 7(L) >=90 mL/min/1.7 3 m2 10/28/2024 12:45 AM [facility] Comment:Estimated Glomerular Filtration Rate (eGFR) calculated using the CKD-EPI Creatinine Equation (2020), per the National Kidney Foundation and [place] [employer] of Nephrology recommendations. Blood BLOOD SPECIMEN / Unknown Venipuncture / Unknown 10/27/2024 11:53 PM CDT 10/28/2024 12:12 AM [facility][NOTE 3] us Savanna Mcfarlane MD LAB - CHEMISTRY ORDERABLES Fi nal Result [facility] [address] [place] [address], [facility] [phone] * LIPASE BLOOD (10/27/2024 11:53 PM CDT) Only the most recent of3 resultswithin the time period is included. Lipase 41 8 - 78 U/L 10/28/2024 12:45 AM CDT [facility] Blood BLOOD SPECIMEN / Unknown Venipuncture / Unknown 10/27/2024 11:53 PM CDT 10/28/2024 12:12 AM CDT Narrative [facility] - 10/28/2024 12:45 AM CDT Lipase results from the Matthew Alinity analyzer may not be comparable with other methodologies. Savanna Mcfarlane MD LAB - CHEMISTRY ORDERABLES Fi nal Result [address] [address], [facility] [phone] * HLA ANTIBODY SCREEN LUM CLASS 2 SAB (10/27/2024 2:40 PM CDT) Pathologist [facility] % PRA 0 11/04/2024 4:03 PM CDT [facility] ([facility]) Class 2 LUM SAB Moderate Risk DQ6 11/04/2024 4:03 PM CDT [facility] ([facility]) Class 2 SAB Test Date [id number] 11/04/2024 4:03 PM CDT [facility] ([facility]) Comment: Methodology - Luminex Bead-Based Immunoassay. This test was developed and its performance characteristics determined by the [facility]. It has not been cleared or [...] high complexity clinical laboratory testing. CLIA ID# [id number] Performed at: [facility], [address] [place] [id number] Recreational Counselor: Steven Gonzalez, Ph.D., D([facility]), Blood BLOOD SPECIMEN / Unknown No Charge Blood Draw / Unknown 10/27/2024 2:40 PM CDT 11/01/2024 2:41 PM CDT Alan Davenport MD LAB - BLOOD BANK ORDERABLES F inal Result Performing Organization Address [facility] de Phone Number [facility] ([facility]) [address] [place] [address] * HLA ANTIBODY SCREEN LUM CLASS 1 SAB (10/27/2024 2:40 PM CDT) Pathologist [facility] % PRA 0 11/04/2024 4:03 PM CDT [facility] ([facility]) Class 1 SAB Test Date [id number] 11/04/2024 4:03 PM CDT [facility] ([facility]) Comment: Methodology - Luminex Bead-Based Immunoassay. This test was developed and its performance characteristics determined by the [facility]. It has not been cleared or [...] high complexity clinical laboratory testing. CLIA ID# [id number] Performed at: [facility], [address] [place] [id number] Recreational Counselor: Steven Gonzalez, Ph.D., D([facility]), Blood BLOOD SPECIMEN / Unknown No Charge Blood Draw / Unknown 10/27/2024 2:40 PM CDT 11/01/2024 2:41 PM CDT Alan Davenport MD LAB - BLOOD BANK ORDERABLES F inal Result Performing Organization Address [facility] Co de Phone Number [facility] ([facility]) [address] [place] [address] * (ABNORMAL) PTH INTACT ([facility]) (10/21/2024 1:11 PM CDT) Only the most recent of2 resultswithin the time period is included. PTH Intact 316.8(H) 8.0 - 77.0 pg/mL 10/21/2024 1:56 PM CDT [facility] Blood BLOOD SPECIMEN / Unknown Lab Venipuncture / Unknown 10/21/2024 1:11 PM CDT 10/21/2024 1:23 PM CDT Becky Wilson MD LAB - CHEMISTRY ORDERABLES Fin al Result [id number] [place] [address], [facility] [phone] * LAB MISC TEST (10/21/2024 1:11 PM CDT) Test Name PHOSPHO-TAU 217 PLASMA 10/25/2024 12:29 PM CDT [facility] Test Result See Scanned Report 10/25/2024 12:29 PM CDT [facility] Comment Ref Lab [place] 10/25/2024 12:29 PM CDT [facility] Blood BLOOD SPECIMEN / Unknown Lab Venipuncture / Unknown 10/21/2024 1:11 PM CDT 10/21/2024 1:15 PM CDT Becky Wilson MD LAB SEND OUT Final Result [facility] [address] [place] [address] * MAGNESIUM BLOOD (10/21/2024 1:11 PM CDT) Only the most recent of14 resultswithin the time period is included. Magnesium 1.6 1.6 - 2.6 mg/dL 10/21/2024 1:49 PM CDT [facility] Blood BLOOD SPECIMEN / Unknown Lab Venipuncture / Unknown 10/21/2024 1:11 PM CDT 10/21/2024 1:20 PM CDT Becky Wilson MD LAB - CHEMISTRY ORDERABLES Fin al Result [address] [address], [facility] [phone] * AMMONIA (10/21/2024 1:11 PM CDT) Ammonia 30 <=72 umol/L 10/21/2024 1:32 PM CDT [facility] Blood BLOOD SPECIMEN / Unknown Lab Venipuncture / Unknown 10/21/2024 1:11 PM CDT 10/21/2024 1:15 PM CDT Becky Wilson MD LAB - CHEMISTRY ORDERABLES Fin al Result Performing Organization Address [facility] Co de Phone Number [address] [address], [facility] [phone] * CT Head Wo Contrast (10/19/2024 3:03 PM CDT) Only the most recent of4 resultswithin the time period is included. Anatomical Region Laterality Modality Head Computed Tomogra phy 10/19/2024 3:11 PM CDT Impressions 10/19/2024 3:41 PM CDT IMPRESSION: 1.No acute intracranial hemorrhage, territorial infarct, or significant mass effect. Report dictated by Saroj Linda MD, MD (radiology physician assistant). > Dictated by Outer Diameter Grinder I, Raymundo Hanson MD have personally reviewed [...] dictated by Saroj Linda MD, MD (radiology physician assistant). > Dictated by Outer Diameter Grinder I, Raymundo Hanson MD have personally reviewed and interpreted this examination/study. > Interpreting Provider: Raymundo Hanson MD on 10/19/2024 3:41 PM [facility]-C CT ORDERABLES Final Result * EKG 12-LEAD (10/19/2024 2:21 PM CDT) Only the most recent of6 resultswithin the time period is included. Ventricular Rate 64 BPM [facility] MUSE Atrial Rate 64 BPM [facility] MUSE P-R Interval 146 ms [facility] MUSE QRS Duration ms 96 ms [facility] MUSE Q-T Interval ms 494 ms [facility] MUSE QTC Calculation (Bezet) 509 ms [facility] MUSE Calculated P [place] 69 degrees SL MUSE Calculated R [place] -63 degrees SL MUSE Calculated T [place] -90 degrees [facility] MUSE Interpretation EKG NORMAL SINUS RHYTHM LEFT ANTERIOR FASCICULAR BLOCK T WAVE ABNORMALITY, CONSIDER INFEROLATERAL ISCHEMIA PROLONGED QT ABNORMAL ECG . Confirmed by TSERING GOTTLIEB, DOUG ([id number]) on 10/23/2024 11:38:28 PM [facility] MUSE 10/19/2024 2:2 1 PM CDT 10/23/2024 11:38 PM CDT [facility] Marilou RIOJASC ECG ORDERABLES Edite d Result - Final [facility] MUSE * (ABNORMAL) B-TYPE NATRIURETIC PEPTIDE (10/17/2024 7:33 PM CDT) Only the most recent of3 resultswithin the time period is included. BNP 471(H) <100 pg/mL 10/17/2024 10:07 PM CDT [facility] Comment: A decision threshold of [...] Fi nal Result [facility] [id number] [place] [address], [facility] [phone] * XR CHEST 1VW PORTABLE (10/09/2024 7:27 PM CDT) Only the most recent of2 resultswithin the time period is included. Anatomical Region Laterality Modality Chest Digital Radiogra phy 10/09/2024 10:4 9 PM CDT Narrative 10/10/2024 1:17 AM CDT PROCEDURE: XR CHEST 1VW PORTABLE, DATE/TIME OF EXAM: 10/09/2024 7:27 PM, LOCATION [facility] INDICATION: R06.02: Short of breath on exertion ADDITIONAL CLINICAL INFORMATION: Ordering Provider Reason For Exam: r/o effusion, pneumonia Technologist Note: Additional: COMPARISON: Chest x-ray from 10/07/2024. FINDINGS/IMPRESSION: There is no focal consolidation, pleural effusion, or pneumothorax.The cardiomediastinal silhouette is normal. No displaced fractures identified. Hardware projecting over thoracic spine. > Dictated by Otis Bocanegra MD (radiology physician assistant). > Dictated by Outer Diameter Grinder I, Blake Plasencia MD have personally reviewed and interpreted this examination/study. > Interpreting Provider: Blake Plasencia MD on 10/10/2024 1:17 AM Procedure Note Blake Plasencia MD - 10/10/2024 PROCEDURE: XR CHEST 1VW PORTABLE, DATE/TIME OF EXAM: 10/09/2024 7:27PM, LOCATION [facility] INDICATION: R06.02: Short of breath on exertion ADDITIONAL CLINICAL INFORMATION: Ordering Provider Reason For Exam: r/o effusion, pneumonia Technologist Note: Additional: COMPARISON: Chest x-ray from 10/07/2024. FINDINGS/IMPRESSION: There is no focal consolidation, pleural effusion, or pneumothorax.The cardiomediastinal silhouette is normal. No displaced fracturesidentified. Hardware projecting over thoracic spine. > Dictated by Otis Bocanegra MD (radiology physician assistant). > Dictated by Outer Diameter Grinder I, Blake Plasencia MD have personally reviewed and interpreted this examination/study. > Interpreting Provider: Blake Plasencia MD on 10/10/2024 1:17 AM us Anjali Avelar DRYWALL FINISHER-RADIO ENGINEERING TEACHER DIAGNOSTIC IMAGING O RDERABLES Final Result * (ABNORMAL) BLOOD GASES ABBEY + COOX PANEL (10/09/2024 4:39 PM CDT) Only the most recent of2 resultswithin the time period is included. pH Venous 7.41 7.32 - 7.42 pH 10/09/2024 5:04 PM [facility] pO2 Venous 34(L) 35 - 40 mmHg 10/09/2024 5:04 PM [facility] pCO2 Venous 44 40 - 50 mmHg 10/09/2024 5:04 PM [facility] HCO3 Venous 27.9 20 - 30 mmol/L 10/09/2024 5:04 PM [facility] Base Excess Venous 2.9(H) -2.0 - 2.0 mmol/L 10/09/2024 5:04 PM [facility] Oxyhemoglobin Venous 56.8 % 09/18 5:04 PM [facility] Comment:A^Absorbance Error Deoxyhemoglobin (HHB) Venous % 42.6 % 10/09/2024 5:04 PM [facility] Comment:A^Absorbance Error Methemoglobin <0.8 0.0 - 2.0 % 10/09/2024 5:04 PM [facility] Comment:A^Absorbance Error Carboxyhemoglobin 0.6 0.0 - 2.0 % 2024 5:04 PM [facility] Comment:A^Absorbance Error O2 Content Venous 7.7 Interpret within clinical context ml/dL 10/09/2024 5:04 PM CDT [facility] Hemoglobin by COOX 9.6(L) 12.0 - 17.6 g/dL 10/09/2024 5:04 PM CDT [facility] Comment:A^Absorbance Error O2 Saturation Venous 57(L) >=70 % 09/18 5:04 PM CDT [facility] Comment:A^Absorbance Error FI O2 Mixed Venous 21.0 % 2024 5:04 PM CDT [facility] Blood BLOOD SPECIMEN / Unknown Venipuncture / Unknown 10/09/2024 4:39 PM CDT 10/09/2024 4:56 PM CDT Narrative [facility] - 10/09/2024 5:04 PM CDT Carboxyhemoglobin Normal Concentration: Non-smokers: 0-2%; Smokers: 0-9%; Toxic: >20% Anjali Avelar [facility] - BLOOD GASES OR DERABLES Final Result [address] [address], [facility] [phone] * PHOSPHORUS BLOOD (10/09/2024 4:39 PM CDT) Only the most recent of8 resultswithin the time period is included. [facility] Phosphorus 4.9 2.8 - 5.1 mg/dL 10/09/2024 5:29 PM CDT [facility] Blood BLOOD SPECIMEN / Unknown Venipuncture / Unknown 10/09/2024 4:39 PM CDT 10/09/2024 4:58 PM CDT Anjali Avelar DRYWALL FINISHERWORCE[facility] - CHEMISTRY ORDE RABLES Final Result Performing Organization Address City/[facility]/ZIP Co de Phone Number [address] [address], [place] [phone] * (ABNORMAL) URINALYSIS REFLEX MICROSCOPIC REFLEX CULTURE (10/07/2024 6:16 PM CDT) Color UA Yellow Yellow, Straw 10/07/2024 6:39 PM [facility] Clarity UA Ex. Turbid(A) Clear 10/07/2024 6:39 PM [facility] Glucose UA Normal Normal 10/07/2024 6:39 PM [facility] Bilirubin UA Negative Negative 10/07/2024 6:39 PM [facility] Ketone UA Negative Negative 10/07/2024 6:39 PM [facility] Specific [place] UA 1.015 1.005 - 1.030 10/07/2024 6:39 PM [facility] Blood UA 3+(A) Negative 10/07/2024 6:39 PM [facility] pH UA 6.0 5.0 - 8.0 10/07/2024 6:39 PM [facility] Protein UA 2+(A) Negative 10/07/2024 6:39 PM [facility] Urobilinogen UA Normal Normal mg/dL 10/07/2024 6:39 PM [facility] Nitrite UA Negative Negative 10/07/2024 6:39 PM [facility] Leukocyte Esterase UA 500 MOLLY/uL(A) Negative 10/07/2024 6:39 PM [facility] RBC UA 51-100(A) 0 - 5 # /hpf 10/07/2024 6:39 PM [facility] WBC UA >100(A) 0 - 5 # /hpf 10/07/2024 6:39 PM [facility] Bacteria UA 2+(A) None Seen 10/07/2024 6:39 PM [facility] Squamous Epithelial Cells None Seen 0 - 5 /hpf 10/07/2024 6:39 PM [facility] Transitional Epithelial Cell UA 0-2(A) None Seen /HPF 10/07/2024 6:39 PM [facility] Budding Yeast Moderate(A) None seen /hpf 10/07/2024 6:39 PM [facility] Reflex Status Culture to follow 10/07/2024 6:39 PM [facility] Urine URINE SPECIMEN OBTAINED VIA [employer] URINARY CATHETER / Unknown Collection / Unknown 10/07/2024 6:16 PM CDT 10/07/2024 6:19 PM CDT Narrative [facility] - 10/07/2024 6:39 PM CDT Richard Sylvester MD LAB - URINALYSIS ORDERABLES Kenna haider Result [facility] [address] [place] [address], [facility] [phone] * (ABNORMAL) CULTURE URINE (10/07/2024 6:16 PM CDT) Culture Urine 50,000-100,000 CFU/mL Klebsiella pneumoniae(A) MUSHTAQ 10/09/2024 5:[address] [facility] Urine URINE SPECIMEN OBTAINED VIA [employer] URINARY CATHETER / Unknown Collection / Unknown 10/07/2024 6:16 PM CDT 10/07/2024 6:[address] [facility] - 10/09/2024 5:54 AM CDT Organism [...] LAB - MICROBIOLOGY ORDERABLES Fi nal Result [facility] [address] [place] [address], [facility] [phone] * VAS Arterial Multilevel Le (10/05/2024 12:24 PM CDT) Anatomical Region Laterality Modality Intravascular Ul trasound 10/05/2024 11:3 4 AM CDT Narrative Procedure Note Elroy Holcomb MD - 10/05/2024 Guy Messina MD VASCULAR LAB ORDERABLES Edit ed Result - Final * (ABNORMAL) HEMOGLOBIN A1C (09/25/2024 5:06 AM CDT) Hemoglobin A1c 5.8(H) <=5.6 % 09/25/2024 8:19 AM CDT [facility] Estimated Average Glucose 120 mg/dL 09/25/2024 8:19 AM CDT [facility] Comment: HbA1c Interpretation: Normal : < 5.7% Pre-diabetes: 5.7-6.4% Diabetes: Equal to or greater than 6.5% Test results diagnostic of diabetes should be repeated for confirmation. Treatment target values recommended by ADA and other clinical organizations should be used to evaluate metabolic control in patients. Reference: [place] [employer], Standards of Care in Diabetes [...] LAB - CHEMISTRY ORDERABLES F inal Result [facility] [address] [place] [address], [facility] [phone] * (ABNORMAL) RENAL FUNCTION PANEL (09/24/2024 7:53 PM CDT) Only the most recent of3 resultswithin the time period is included. BUN 42(H) 7 - 26 mg/dL 09/24/2024 8:47 PM [facility] Creatinine 12.22(H) 0.71 - 1.16 mg/dL 09/24/2024 8:47 PM [facility] Sodium 136 136 - 145 mmol/L 09/24/2024 8:47 PM [facility] Potassium 3.9 3.5 - 4.5 mmol/L 09/24/2024 8:47 PM [facility] Chloride 97(L) 98 - 107 mmol/L 09/24/2024 8:47 PM [facility] CO2 24 22 - 29 mmol/L 09/24/2024 8:47 PM [facility] Glucose 93 70 - 99 mg/dL 09/24/2024 8:47 PM [facility] Albumin 1.8(L) 3.4 - 5.0 g/dL 09/24/2024 8:47 PM [facility] Calcium 8.4 8.4 - 10.2 mg/dL 09/24/2024 8:47 PM [facility] Phosphorus 7.0(H) 2.8 - 5.1 mg/dL 09/24/2024 8:47 PM [facility] Anion Gap 15 6 - 16 09/24/2024 8:47 PM [facility] BUN/Creatinine Ratio 3(L) 7 - 23 09/24/2024 8:47 PM [facility] Osmolality Calculated 292 275 - 295 mOsm/kg 09/24/2024 8:47 PM CDT [facility] eGFR by CKD-EPI 4(L) >=90 mL/min/1.7 3 m2 09/24/2024 8:47 PM CDT [facility] Comment:Estimated Glomerular Filtration Rate (eGFR) calculated using the CKD-EPI Creatinine Equation (2020), per the National Kidney Foundation and [place] Society of Nephrology recommendations. Blood BLOOD SPECIMEN / Unknown Lab Venipuncture / Unknown 09/24/2024 7:53 PM CDT 09/24/2024 8:15 PM CDT us Guy Messina MD LAB - CHEMISTRY ORDERABLES F inal Result Performing Organization Address City/[facility]/ZIP Co de Phone Number [address] [address], [facility] [phone] * TSH REFLEX FREE T4 (09/24/2024 12:02 PM CDT) TSH 1.567 0.350 - 4.940 uIU/mL 09/24/2024 12:57 PM CDT [facility] Blood BLOOD SPECIMEN / Unknown 09/24/2024 12:02 PM CDT 09/24/2024 12:18 PM CDT us Alexis Rodrigez III, MD LAB - CHEMISTRY ORDERAB LES Final Result Performing Organization Address [facility]/ZIP Co de Phone Number [address] [address], [facility] [phone] * (ABNORMAL) VITAMIN B1 (09/24/2024 12:02 PM CDT) Vitamin B1 Whole Blood 205(H) 70 - 180 nmol/L 09/27/2024 7:16 PM CDT [facility] ([facility]) Comment: INTERPRETIVE INFORMATION: Vitamin B1, Whole Blood This assay measures the concentration of thiamine diphosphate (TDP), the primary active form of vitamin B1. Approximately 90 percent of vitamin B1 present in whole blood is TDP. Thiamine and thiamine monophosphate, which comprise the remaining 10 percent, are not measured. This test was developed and its performance characteristics determined by [employer]. It has not been cleared or approved by the US Food and Drug Administration. This test was performed in a CLIA certified laboratory and is intended for clinical purposes. Performed By: [facility] [employer] [address] [place] [address] Registered Vascular Technologist (Rvt): Mk Egan MD, PhD CLIA Number: [id number] Blood BLOOD SPECIMEN / Unknown 09/24/2024 12:02 PM CDT 09/24/2024 12:11 PM CDT us Alexis Rodrigez III, MD LAB - CHEMISTRY ORDERAB LES Final Result Performing Organization Address [facility]/ZIP Co de Phone Number [facility] ([facility]) [address] [place] [address] * (ABNORMAL) VITAMIN B12 (09/24/2024 12:02 PM CDT) Vitamin B12 1,151(H) 213 - 816 pg/mL 09/24/2024 12:57 PM CDT [facility] Blood BLOOD SPECIMEN / Unknown 09/24/2024 12:02 PM CDT 09/24/2024 12:18 PM CDT us Alexis Rodrigez III, MD LAB - CHEMISTRY ORDERAB LES Final Result Performing Organization Address [facility]/ZIP Co de Phone Number [address] [address], [facility] [phone] * (ABNORMAL) TROPONIN-I HIGH SENSITIVE (09/24/2024 5:08 AM CDT) Troponin I High Sensitive 83(H) <=35 ng/L 09/24/2024 6:10 AM CDT [facility] Blood BLOOD SPECIMEN / Unknown Lab Venipuncture / Unknown 09/24/2024 5:08 AM CDT 09/24/2024 5:28 AM CDT us Jennfier Winn MD LAB - CHEMISTRY ORDERABLES F inal Result [facility] [address] [place] [address], [facility] [phone] * CT Lumbar Spine Wo Contrast (09/23/2024 [...] Report dictated by Branden Jha MD (radiology physician assistant) 09/23/2024 5:45 PM. > Dictated by Outer Diameter Grinder I, Jana Clark MD have personally reviewed and interpreted this examination/study. > Interpreting Provider: Jana Clark MD on 09/23/2024 6:29 PM Narrative 09/23/2024 6:29 PM CDT PROCEDURE: CT HEAD WO CONTRAST, CT LUMBAR SPINE WO CONTRAST, CT THORACIC SPINE WO CONTRAST, CT CERVICAL SPINE WO CONTRAST, DATE/TIME OF EXAM: 09/23/2024 5:32 PM, LOCATION [facility] INDICATION: W19.XXXA: Fall, initial encounter R41.82: Altered mental status, unspecified altered mental status type ADDITIONAL CLINICAL INFORMATION: Ordering Provider Reason For Exam: r/o bleed, fx (accession [id number]), r/o fx (accession [id number]), r/o fx (accession [id number]), r/o fx (accession [id number]) Technologist Note: None. Additional: 69 year old [...] DATE/TIME OF EXAM: 09/23/2024 5:32 PM, LOCATION [facility] INDICATION: W19.XXXA: Fall, initial encounter R41.82: Altered mental status, unspecified altered mental status type ADDITIONAL CLINICAL INFORMATION: Ordering Provider Reason For Exam: r/o bleed, fx (accession [id number]), r/o fx (accession [id number]), r/o fx (accession [id number]), r/o fx (accession [id number]) Technologist Note: None. Additional: 69 year old [...] Report dictated by Branden Jha MD (radiology physician assistant) 09/23/2024 5:45 PM. > Dictated by Outer Diameter Grinder Jana Leigh MD have personally reviewed and [...] Report dictated by Branden Jha MD (radiology physician assistant) 09/23/2024 5:45 PM. > Dictated by Outer Diameter Grinder Jana Leigh MD have personally reviewed and interpreted this examination/study. > Interpreting Provider: Jana Clark MD on 09/23/2024 6:29 PM Narrative 09/23/2024 6:29 PM CDT PROCEDURE: CT HEAD WO CONTRAST, CT LUMBAR SPINE WO CONTRAST, CT THORACIC SPINE WO CONTRAST, CT CERVICAL SPINE WO CONTRAST, DATE/TIME OF EXAM: 09/23/2024 5:32 PM, LOCATION [facility] INDICATION: W19.XXXA: Fall, initial encounter R41.82: Altered mental status, unspecified altered mental status type ADDITIONAL CLINICAL INFORMATION: Ordering Provider Reason For Exam: r/o bleed, fx (accession [id number]), r/o fx (accession [id number]), r/o fx (accession [id number]), r/o fx (accession [id number]) Technologist Note: None. Additional: 69 year old [...] DATE/TIME OF EXAM: 09/23/2024 5:32 PM, LOCATION [facility] INDICATION: W19.XXXA: Fall, initial encounter R41.82: Altered mental status, unspecified altered mental status type ADDITIONAL CLINICAL INFORMATION: Ordering Provider Reason For Exam: r/o bleed, fx (accession [id number]), r/o fx (accession [id number]), r/o fx (accession [id number]), r/o fx (accession [id number]) Technologist Note: None. Additional: 69 year old [...] Report dictated by Branden Jha MD (radiology physician assistant) 09/23/2024 5:45 PM. > Dictated by Outer Diameter Grinder I, Jana Clark MD have personally reviewed [...] Report dictated by Branden Jha MD (radiology physician assistant) 09/23/2024 5:45 PM. > Dictated by Outer Diameter Grinder I, Jana Clark MD have personally reviewed and interpreted this examination/study. > Interpreting Provider: Jana Clark MD on 09/23/2024 6:29 PM Narrative 09/23/2024 6:29 PM CDT PROCEDURE: CT HEAD WO CONTRAST, CT LUMBAR SPINE WO CONTRAST, CT THORACIC SPINE WO CONTRAST, CT CERVICAL SPINE WO CONTRAST, DATE/TIME OF EXAM: 09/23/2024 5:32 PM, LOCATION [facility] INDICATION: W19.XXXA: Fall, initial encounter R41.82: Altered mental status, unspecified altered mental status type ADDITIONAL CLINICAL INFORMATION: Ordering Provider Reason For Exam: r/o bleed, fx (accession [id number]), r/o fx (accession [id number]), r/o fx (accession [id number]), r/o fx (accession [id number]) Technologist Note: None. Additional: 69 year old [...] DATE/TIME OF EXAM: 09/23/2024 5:32 PM, LOCATION [facility] INDICATION: W19.XXXA: Fall, initial encounter R41.82: Altered mental status, unspecified altered mental status type ADDITIONAL CLINICAL INFORMATION: Ordering Provider Reason For Exam: r/o bleed, fx (accession [id number]), r/o fx (accession [id number]), r/o fx (accession [id number]), r/o fx (accession [id number]) Technologist Note: None. Additional: 69 year old [...] Report dictated by Branden Jha MD (radiology physician assistant) 09/23/2024 5:45 PM. > Dictated by Outer Diameter Grinder I, Jana Clark MD have personally reviewed [...] Report dictated by Branden Jha MD, (radiology physician assistant). > Dictated by Outer Diameter Grinder I, Nicole Bernabe MD have personally reviewed and interpreted this examination/study. > Interpreting Provider: Nicole Bernabe MD on 09/24/2024 9:17 AM Narrative 09/24/2024 9:17 AM CDT PROCEDURE: XR FOOT LEFT 3VW OR MORE, DATE/TIME OF EXAM: 09/23/2024 5:34 PM, LOCATION [facility] INDICATION: W19.XXXA: Fall, initial encounter ADDITIONAL [...] MORE, DATE/TIME OF EXAM: 09/23/2024 5:34PM, LOCATION [facility] INDICATION: W19.XXXA: Fall, initial encounter ADDITIONAL [...] Report dictated by Branden Jha MD, (radiology physician assistant). > Dictated by Outer Diameter Grinder I, Nicole Bernabe MD have personally reviewed and interpreted this examination/study. > Interpreting Provider: Nicole Bernabe MD on 09/24/2024 9:17 AM us Moon Lewis PA-C DIAGNOSTIC IMAGING ORDERABLES F inal Result * (ABNORMAL) C-REACTIVE PROTEIN (09/23/2024 4:52 PM CDT) Only the most recent of2 resultswithin the time period is included. C-Reactive Protein 1.6(H) <=0.5 mg/dL 09/23/2024 5:42 PM CDT [facility] Blood BLOOD SPECIMEN / Unknown Venipuncture / Unknown 09/23/2024 4:52 PM CDT 09/23/2024 4:56 PM CDT Moon Lewis PA-C LAB - CHEMISTRY ORDERABLES Kenna l Result Performing Organization Address City/[facility]/ZIP Co de Phone Number [address] [address], [facility] [phone] * (ABNORMAL) ERYTHROCYTE SEDIMENTATION RATE (09/23/2024 4:52 PM CDT) Only the most recent of2 resultswithin the time period is included. Erythrocyte Sedimentation Rate Westergren 116(H) 0 - 20 MM/HR 09/23/2024 5:21 PM CDT [facility] Blood BLOOD SPECIMEN / Unknown Venipuncture / Unknown 09/23/2024 4:52 PM CDT 09/23/2024 5:05 PM CDT Moon Lewis PA-C LAB - HEMATOLOGY ORDERABLES Fin al Result Performing Organization Address City/[facility]/ZIP Co de Phone Number [address] [address], [place] [phone] * (ABNORMAL) DIFFERENTIAL MANUAL (09/23/2024 4:52 PM CDT) Only the most recent of3 resultswithin the time period is included. Neutrophil % 78(H) 41 - 74 % 09/23/2024 5:33 PM CDT [facility] Lymphocyte % 10(L) 17 - 47 % 09/23/2024 5:33 PM CDT [facility] Monocyte % 10 3 - 11 % 09/23/2024 5:33 PM CDT [facility] Eosinophil % 1 0 - 7 % 09/23/2024 5:33 PM CDT [facility] Metamyelocyte % 1(H) 0% % 5:33 PM CDT [facility] Neutrophil Absolute 8.66(H) 1.60 - 7.50 x10E9/L 09/23/2024 5:33 PM T [facility] Lymphocyte Absolute 1.11 1.00 - 4.40 x10E9/L 09/23/2024 5:33 PM T [facility] Monocyte Absolute 1.11(H) 0.15 - 1.00 x10E9/L 09/23/2024 5:33 PM T [facility] Eosinophil Absolute 0.11 0.00 - 0.60 x10E9/L 09/23/2024 5:33 PM [facility] RBC Morphology REVIEWED 09/23/2024 5:33 PM [facility] Microcytosis MODERATE(A) (none) 09/23/2024 5:33 PM [facility] Blood BLOOD SPECIMEN / Unknown Venipuncture / Unknown 09/23/2024 4:52 PM CDT 09/23/2024 5:05 PM CDT Moon Lewis PA-C LAB - HEMATOLOGY ORDERABLES Fin al Result Performing Organization Address [facility]/State/ZIP Co de Phone Number [facility] [address] [place] [address], [facility] [phone] * (ABNORMAL) CBC W/O DIFFERENTIAL (09/16/2024 1:01 AM CDT) Only the most recent of10 resultswithin the time period is included. WBC 9.3 4.0 - 10.7 x10E9/L 09/16/2024 1:43 AM [facility] RBC Count 3.37(L) 4.30 - 5.80 x10E12/L 09/16/2024 1:43 AM [facility] Hemoglobin 9.5(L) 13.3 - 17.5 g/dL 09/16/2024 1:43 AM [facility] Hematocrit 28.3(L) 38.7 - 51.1 % 09/16/2024 1:43 AM CDT [facility] MCV 84.0 80.0 - 98.0 fL 09/16/2024 1:43 AM CDT [facility] MCH 28.2 26.7 - 33.6 pg 09/16/2024 1:43 AM CDT [facility] MCHC 33.6 31.7 - 36.3 g/dL 09/16/2024 1:43 AM T [facility] RDW-CV 15.7(H) 11.3 - 14.8 % 09/16/2024 1:43 AM T [facility] Platelet Count 205 150 - 420 x10E9/L 09/16/2024 1:43 AM T [facility] MPV 10.3 7.8 - 11.4 fL 09/16/2024 1:43 AM CDT [facility] Blood BLOOD SPECIMEN / Unknown Lab Venipuncture / Unknown 09/16/2024 1:01 AM CDT 09/16/2024 1:40 AM CDT us Alexis Rodrigez III, MD LAB - HEMATOLOGY ORDERA BLES Final Result Performing Organization Address City/[facility]/ZIP Co de Phone Number [address] [address], [facility] [phone] * VANCOMYCIN LEVEL RANDOM (09/15/2024 4:10 PM CDT) Only the most recent of3 resultswithin the time period is included. Vancomycin Random 31.2 Therapeutic Ranges not established for random specimens ug/mL 09/15/2024 6:00 PM CDT [facility] Blood BLOOD SPECIMEN / Unknown Lab Venipuncture / Unknown 09/15/2024 4:10 PM CDT 09/15/2024 4:51 PM CDT Narrative [facility] - 09/15/2024 6:00 PM CDT See institution protocol. us Aureliaon Pierce MD LAB - CHEMISTRY ORDERAB LES Final Result [address] [address], [place] [phone] * LACTIC ACID BLOOD (09/14/2024 3:32 PM CDT) Only the most recent of4 resultswithin the time period is included. Pathologist [facility] Lactic Acid-Stat 2.0 <=2.0 mmol/L 09/14/2024 4:17 PM CDT [facility] Blood BLOOD SPECIMEN / Unknown Lab Venipuncture / Unknown 09/14/2024 3:32 PM CDT 09/14/2024 3:51 PM CDT us Alexis Rodrigez III, MD LAB - CHEMISTRY ORDERAB LES Final Result Performing Organization Address [facility] Co de Phone Number [address] [address], [facility] [phone] * (ABNORMAL) HGB HCT PANEL (09/14/2024 1:24 PM CDT) Only the most recent of2 resultswithin the time period is included. [facility] Hemoglobin 8.7(L) 13.3 - 17.5 g/dL 09/14/2024 1:41 PM CDT [facility] Hematocrit 25.6(L) 38.7 - 51.1 % 09/14/2024 1:41 PM CDT [facility] Blood BLOOD SPECIMEN / Unknown Venipuncture / Unknown 09/14/2024 1:24 PM CDT 09/14/2024 1:30 PM CDT us Alexis Rodrigez III, MD LAB - HEMATOLOGY ORDERA BLES Final Result [address] [address], [place] [phone] * PATHOLOGY TISSUE (09/14/2024 11:45 AM CDT) [facility] Case Report Surgical Pathology Report Case: [id number] Authorizing Provider: Elroy Holcomb MD Collected: 09/14/2024 11:45 AM Ordering Location: [facility] RITO OP Received: 09/14/2024 12:47 PM Pathologist: Charmaine Myrick MD Specimen: Toe, Left, Left Great Toe 09/16/2024 11:40 AM [facility] Final Diagnosis Toe, left great, amputation (A): - Skin ulceration and necrosis - Acute osteomyelitis - Bone margin negative for acute inflammation - Skin and soft tissue margin appears viable 09/16/2024 11:40 AM [facility] at 1140 CDT Microscopic Description and Comment Microscopic examination substantiates the diagnosis. 09/16/2024 11:40 AM [facility] Clinical History The patient is a 69-year-old man with first toe dry gangrene and history of PAD. 09/16/2024 11:40 AM [facility] Gross Description The requisition [...] hemorrhage. There are no additional gross lesions. [employer] sections are submitted as follows: A1-skin and soft tissue to resection margin, medial and dorsal surfaces A2-bony resection margin, decalcified A3-partial proximal cross-section with surrounding mummification, decalcified IKD 09/16/2024 11:40 AM [facility] Pathologist Location at [facility] 09/16/2024 11:40 AM [facility] Disclaimer The performance characteristics of all immunohistochemical and indirect immunofluorescence stains (if any) cited in this report were determined by the Histopathology Laboratory of [facility]. Some of these tests were [...] attending (teaching) pathologist. 09/16/2024 11:40 AM CDT [facility] Embedded Images 09/16/2024 11:40 AM CDT [facility] Amputation, Traumatic (Gross Only) (Toe, Left) 09/14/2024 11:45 AM CDT 09/14/2024 12:47 PM CDT Comment:Pre-op diagnosis: Toe gangrene (HCC) [I96] us Elroy Holcomb MD LAB - PATHOLOGY/CYTOLOGY O RDERABLES Final Result Performing Organization Address City/State/[facility] Co md Phone Number [facility] [address] [phone] * Peripheral Nerve Block (09/14/2024 10:38 AM [...] fungus isolated MUSHTAQ 10/11/2024 8:[address] [facility] Fungus Stain No yeast or hyphae seen 10/11/2024 8:[address] [facility] Microbiology PERITONEAL DIALYSATE SPECIMEN / Unknown Collection / Unknown 09/13/2024 8:08 PM CDT 09/13/2024 8:10 PM CDT us Alexis Rodrigez III, MD LAB - MICROBIOLOGY PK ZENG Final Result [facility] [place] [facility] [address] [place] [address], [facility] [phone] * DIFFERENTIAL MANUAL FLUID (09/13/2024 8:08 PM CDT) Fluid Source Peritoneal 09/13/2024 9:03 PM CDT [facility] Body Fluid Total Cell Count 100 x10E6/L 09/13/2024 9:03 PM CDT [facility] Neutrophils Fluid Percent 11 % 09/13/2024 9:03 PM CDT [facility] Lymphocytes Fluid Percent 6 % 09/13/2024 9:03 PM CDT [facility] Macrophages Fluid Percent 79 % 09/13/2024 9:03 PM CDT [facility] Mesothelial Cells Fluid Percent 4 % 09/13/2024 9:03 PM CDT [facility] Fluid PERITONEAL FLUID / Unknown Collection / Unknown 09/13/2024 8:08 PM CDT 09/13/2024 8:10 PM CDT Narrative [facility] - 09/13/2024 9:03 PM CDT No reference ranges established for body fluid differential cell counts. The test results must be integrated into the clinical context for interpretation. Alexis Rodrigez III, MD LAB - BODY FLUID ORDERA BLES Final Result [facility] [address] [place] [address], [place] [phone] * CULTURE FLUID+GRAM STAIN (09/13/2024 8:08 PM CDT) Culture No growth MUSHTAQ 09/17/2024 12:[address] [facility] Gram Stain Light Polymorphonuclear cells 09/17/2024 12:[address] [facility] Gram Stain No organisms seen 025 12:[address] [facility] Other PERITONEAL DIALYSATE SPECIMEN / Unknown Collection / Unknown 09/13/2024 8:08 PM CDT 09/13/2024 8:10 PM CDT Alexis Rodrigez III, MD LAB - MICROBIOLOGY ORDE RABADELFO Final Result [facility] [address] [place] [address], [facility] [phone] * CULTURE ANAEROBE (09/13/2024 8:08 PM CDT) Culture No anaerobic organisms isolated MUSHTAQ 09/19/2024 8:[address] [facility] Microbiology PERITONEAL DIALYSATE SPECIMEN / Unknown Collection / Unknown 09/13/2024 8:08 PM CDT 09/13/2024 8:11 PM CDT us Alexis Rodrigez III, MD LAB - MICROBIOLOGY PK ZENG Final Result Performing Organization Address [facility]/ZIP Co de Phone Number [facility] [address] [place] [address], [facility] [phone] * CELL COUNT W DIFFERENTIAL FLUID (09/13/2024 8:08 PM CDT) Fluid Source Peritoneal 09/13/2024 9:03 PM CDT [facility] Fluid Appearance CLEAR 09/13/2024 9:03 PM CDT [facility] Fluid Color YELLOW 09/13/2024 9:03 PM CDT [facility] Total Nucleated Cells Fluid 279 Reference Range Not Established x10E6/L 09/13/2024 9:03 PM CDT [facility] RBC Count Fluid <2,000 Reference Range Not Established x10E6/L 09/13/2024 9:03 PM CDT [facility] Fluid PERITONEAL FLUID / Unknown Collection / Unknown 09/13/2024 8:08 PM CDT 09/13/2024 8:10 PM CDT Narrative [facility] - 09/13/2024 9:03 PM CDT No reference ranges established for body fluid cell counts. Any reference ranges provided are derived from published literature. The test results must be integrated into the clinical context for interpretation. us Alexis Rodrigez III, MD LAB - BODY FLUID ORDERA BLES Final Result Performing Organization Address [facility] Co de Phone Number [facility] [address] [place] [address], [place] [phone] * VAS Bilateral Venous Duplex Le (09/13/2024 4:34 PM CDT) Anatomical Region Laterality Modality Lower Extremity Ultrasound 09/13/2024 4:18 PM CDT Narrative Procedure Note Lalit Castanon MD - 09/13/2024 us Alexis Rodrigez III, MD VASCULAR LAB ORDERABLES Edited Result - Final * SARS-COV-2 (COVID-19) RAPID (09/13/2024 6:02 AM CDT) COVID-19 PCR Not detected Not detected 09/14/19 6:36 AM CDT [facility] Microbiology SPECIMEN FROM NASOPHARYNGEAL STRUCTURE / Unknown Collection / Unknown 09/13/2024 6:02 AM CDT 09/13/2024 6:04 AM CDT Narrative [facility] - 09/13/2024 6:36 AM CDT The [employer] IP [employer] Xpert Xpress SARS-COV-2 has been authorized by [...] ORDERABLE S Final Result Performing Organization Address City/State/[facility] Co de Phone Number [facility] [address] [place] [address], [facility] [phone] * TRANSFUSE RED BLOOD CELL LEUKOREDUCED UNIT(S) [...] Dictated by Sera Chowdhury Dr, MD (radiology physician assistant). ITerry MD have personally reviewed and interpreted this examination/study. > Interpreting Provider: Terry Ramos MD on 09/13/2024 9:42 AM Narrative 09/13/2024 9:42 AM CDT PROCEDURE: CT ANGIO AORTA FOR DISSECTION, DATE/TIME OF EXAM: 09/13/2024 12:28 AM, LOCATION [facility] INDICATION: R10.9: Abdominal pain, unspecified abdominal [...] DATE/TIME OF EXAM: 09/13/2024 12:28 AM, LOCATION [facility] INDICATION: R10.9: Abdominal pain, unspecified abdominal [...] Dictated by Sera Chowdhury Dr, MD (radiology physician assistant). ITerry MD have personally reviewed and interpreted this examination/study. > Interpreting Provider: Terry Ramos MD on 09/13/2024 9:42 AM Yuriy Lopez MD CT ORDERABLES Final Result * PREPARE (CROSSMATCH) RBC UNIT(S), 1 Units (09/12/2024 11:30 PM CDT) Unit Description AS1 LR PRBC [facility] Unit ABO O [facility] Unit Rh NEG [facility] Product Number R43 [facility] B LO[facility] LAB Unit Donor # [id number] [facility] Unit Status transfused [facility] Product Code [id number] [facility] Blood Type Barcode 9500 [facility] Expiration Date [id number] S BLOOD BANK LAB Blood Bank BLOOD SPECIMEN / Unknown 09/12/2024 11:30 PM CDT 09/12/2024 11:37 PM CDT Yuriy Lopez MD LAB - BLOOD BANK ORDERABLES Final Result [facility] [address] [place] [address], [place] [phone] * TYPE + SCREEN PANEL (09/12/2024 11:30 PM CDT) Antibody Screen NEG 12:16 AM CDT [facility] ABO Rh O NEG 09/13/2024 12:16 AM CDT [facility] Blood Bank BLOOD SPECIMEN / Unknown Venipuncture / Unknown 09/12/2024 11:30 PM CDT 09/12/2024 11:37 PM CDT Yuriy Lopez MD LAB - BLOOD BANK ORDERABLES Final Result [facility] [address] [place] [address], [facility] [phone] * CULTURE BLOOD (09/12/2024 10:00 PM CDT) Only the most recent of4 resultswithin the time period is included. Culture No growth day 5 MUSHTAQ 09/18/2024 1:[address] [facility] Blood PERIPHERAL BLOOD / Unknown Venipuncture / Unknown 09/12/2024 10:00 PM CDT 09/12/2024 10:21 PM CDT Result [facility] Yuriy Lopez MD LAB - MICROBIOLOGY ORDERABLE S Final Result Performing Organization Address City/[facility]/ZIP Co de Phone Number [facility] [address] [place] [address], [facility] [phone] * VAS Bilateral Venous Mapping (09/07/2024 2:24 [...] thickening. Report dictated by Freddie Durham MD, (Outer Diameter Grinder). I, Junior Hurley MD have personally reviewed [...] thickening. Report dictated by Freddie Durham MD, (Outer Diameter Grinder). I, Junior Hurley MD have personally reviewed and interpreted this examination/study. > Interpreting Provider: Junior Hurley MD on 56:26 AM us Charmaine Khalil MD CT ORDERABLES Final Result * (ABNORMAL) POTASSIUM WHOLE BLD (09/01/2024 3:54 PM CDT) Potassium Whole Blood 3.1(L) 3.5 - 5.5 mmol/L 09/01/2024 4:05 PM CDT [facility] Blood WHOLE BLOOD SPECIMEN / Unknown Venipuncture / Unknown 09/01/2024 3:54 PM CDT 09/01/2024 3:57 PM CDT us Jaqueline Crews DRYWALL FINISHER-RADIO ENGINEERING TEACHER LAB - CHEMISTRY ORDERABL ES Final Result [facility] [address] [place] [address], [facility] [phone] * CCL STAGED PERC CORONARY INTERVENTION, CCL [...] 6Fr 1.25Mm Diamondback catheter and using a [employer] Diamondback 360 Viperwire Adv wire. 2 passes [...] DAPT Cardiology clinic f/u us Jaqueline Crews DRYWALL FINISHER-RADIO ENGINEERING TEACHER CV CARDIAC CATH CUPID [place] [facility] Final Result * (ABNORMAL) IRON + TRANSFERRIN PANEL (08/19/2024 1:41 AM CDT) [facility] Signature Iron 40(L) 50 - 175 ug/dL 08/19/2024 2:17 AM CDT [facility] Transferrin 116(L) 174 - 382 mg/dL 08/19/2024 2:17 AM CDT [facility] Transferrin Saturation % 28 16 - 50 % 08/19/2024 2:17 AM CDT [facility] TIBC Calculated 145(L) 240 - 450 ug/dL 08/19/2024 2:17 AM CDT [facility] Blood BLOOD SPECIMEN / Unknown Lab Venipuncture / Unknown 08/19/2024 1:41 AM CDT 08/19/2024 2:01 AM CDT us Hannah Goodman MD LAB - CHEMISTRY ORDERABLES F inal Result Performing Organization Address City/[facility]/ZIP Co de Phone Number [address] [address], [place] [phone] * (ABNORMAL) FERRITIN (08/19/2024 1:41 AM CDT) Ferritin 560(H) 22 - 275 ng/mL 08/19/2024 2:35 AM CDT [facility] Blood BLOOD SPECIMEN / Unknown Lab Venipuncture / Unknown 08/19/2024 1:41 AM CDT 08/19/2024 2:01 AM CDT us Hannah Goodman MD LAB - CHEMISTRY ORDERABLES F inal Result Performing Organization Address City/[facility]/ZIP Co de Phone Number [address] [address], [place] [phone] * VITAMIN D 25-HYDROXY (08/19/2024 1:23 AM CDT) Vitamin D, 25 Hydroxy 36.2 30.0 - 80.0 ng/mL 08/19/2024 2:24 AM CDT [facility] Comment: The recommendations [...] LAB - CHEMISTRY ORDERABLES F inal Result [facility] [address] [place] [address], [facility] [phone] * CCL PERIPHERAL ANGIOGRAM (08/18/2024 2:33 PM CDT) Anatomical Region Laterality Modality X-Ray Angiograph y Narrative 08/19/2024 2:24 PM CDT Left leg angiogram showed left AT severe diffuse disease with multiple subtotal occlusion and left PT severe diffuse disease with CASINO CONTROLLER of distal PT without clear reconstitution. Successful [...] 0.018 CXI microcatheter with multiple wires(Command 18/command 14/Exposure Machine Operator 200) to get to great toe branch of dorsalis pedis using corporation pilot [address]. - the AT-DP lesion was dilated with balloons mentioned in figure. - We turn our attention to PT. We crossed the PT CASINO CONTROLLER with 0.018 CXI microcatheter with multiple wires (command 18, command 14, Exposure Machine Operator 200) and able to go to lateral [...] using angiography. Left Posterior Tibial: Ost L CEMENT GRINDING MILL OPERATOR to Dist L CEMENT GRINDING MILL OPERATOR lesion is 100% stenosed. Stenosis was measured using angiography. Intervention Ost L ROSETTA to Dist L ROSETTA lesion: Angioplasty: Angioplasty independent of stent deployment was performed using a standard balloon. The balloon used was [employer] Em[employer] Mr Wh 1.5Mm 144Cm 15Mm 2. [...] 10% residual stenosis post intervention. Ost L CEMENT GRINDING MILL OPERATOR to Dist L CEMENT GRINDING MILL OPERATOR lesion: Angioplasty: Angioplasty independent of stent [...] of Plavix. -recommend close follow up with territory sales manager medical and follow up with me in clinic with JOSIANE/TBI. Hannah Goodman MD CV INVASIVE VASCULAR AND IR CUPID PROC Final Result * ACT LR - POCT ([facility]) (08/18/2024 2:08 PM CDT) Only the most recent of4 resultswithin the time period is included. [facility] ACT LR 231 See result comments sec 08/19/2024 9:02 AM T [facility] Blood BLOOD SPECIMEN / Unknown 08/18/2024 2:08 PM CDT 08/19/2024 9:02 AM CDT Narrative [facility] - 08/19/2024 9:02 AM CDT ACT-LR [...] COAGULATION ORDERABLES Final Result Performing Organization Address City/[facility] Co de Phone Number [facility] [address] [place] [address], [place] [phone] * HEPATITIS C ANTIBODY (06/16/2024 4:15 PM [...] ORDERABLES Fi nal Result Performing Organization Address [facility]/ZIP Co de Phone Number [facility] [address] [place] [address], [place] [phone] from Last 3 Months or Most Recently Relevant to Health Maintenance Insurance [employer] MEDICARE ADV * Guarantor: GRACE INTERIANO Account Type Relation to Patient Date of Phone Billing Address Personal/Family [address] [place] [address] * Guarantor: GRACE INTERIANO Account Type Relation to Patient Date of Phone Billing Address Personal/Family [address] [place] [address] Advance Directives * Full Code (Latest Code [...] 3:16 PM 08/19/2024 4:36 PM Care Teams Granite Block Paver Relationship Specialty Start Date End Date Jeff Strickland MD [address] [place] [address] PCP - General 03/05/18 [place] [id number] [address] Orthopedic Surgery 03/28/17
--- OUTSIDE RECORDS SUMMARY | 2024-11-13 20:42 | XMS_ITS | Clinical Summary ---
Author Organization [facility] Address [facility] [place] [address] Care Team Providers Care Senior Media Planner Name Role Phone Jeff Strickland MD Primary Care Provider [phone] Allergies Active Allergy Reactions Criticality Noted Date [...] by mouth nightly at bedtime. Active Multiple Vitamins-[place] als (PRESERVISION AREDS 2 OR) Take 1 [...] 0.6 oz pur e alcohol) [facility] Utilities Answer Date Recorded In the past 12 months has th e electric, gas, oil, or water [employer] threatened to shut off services in your [...] on file Legal Sex Male 10:10 AM DISTRIBUTED ENERGY SYSTEMS CONSULTANT Gender Identity Not on file Sexual [...] discharge from hospital Lifestyle No Alice Rizzo, [facility] Insurance [employer] Advance Directives * Full Code (Latest Code Status on File) Date Activated Date Inactivated Comments 05/02/2023 12:46 AM 05/03/2023 12:26 PM Care Teams Senior Media Planner Relationship Specialty Start Date End Date Jeff Strickland MD [address] [place] [address] PCP - General FAMILY PRACTICE 02/22/23
--- OUTSIDE RECORDS SUMMARY | 2024-11-13 20:42 | XMS_ITS | Encounter Summary ---
Author Organization [facility] Address [address] [place] [address] Care Team Providers Care Dock Manager Name Role Phone Deandre Bojorquez MD Unavailable [phone] Jeff Strickland MD Primary Care Provider [phone] Reason for Visit * Reason Onset Date Comments Post-Op 09/03/2024 Encounter Details Date Type Department Care Team (Late st Contact Info) Description 09/03/2024 Telephone [facility] - Cardiology [address] [facility], [facility] [address] [place] [address] Hannah Goodman MD [address] [facility] [address] [place] [address] Post-Op Social History Tobacco Use Types Packs/Day [...] and heating? Not hard at all 09/04/2024 [facility] [place] of Occupat ional Health - Occupational Stress [...] in the past 12 m [facility], were you homeless or living in a residential (including now)? No 09/04/2024 Sex and Gender Information Value Date Recorded Sex Assigned at Male 07/02/2021 2:37 PM CDT Legal Sex Male 10:14 PM PLANNING AND ANALYSIS MANAGER Gender Identity Male 07/02/2021 2:37 PM [...] confused post op Patient Call Back number: [phone] documented in this encounter Plan of Treatment Upcoming Encounters Date Type Department Care Team (Late st Contact Info) Description 12/06/2024 10:40 AM CDT Office Visit [facility] - Endocrinology [address] [place] [address], [place] [address] Marbin Flores MD [address] [facility] DIV [place] [address] Niraj Turner MD [address] [place] [address] [address] [place] [address] 2025 1:00 PM PLANNING AND ANALYSIS MANAGER Office Visit [facility] - Neurology [address] [place] [address], [place] [address] Becky Wilson MD [address] [place] [phone] documented as of this encounter Visit Diagnoses Not on filedocumented in this encounter Additional Health Concerns Infection Onset Date Last Indicated Resolved Time COVID-19 Under Investigation 09/13/2024 09/13/2024 09/13/2024 6:36 AM CDT documented as of this encounter Care Teams Dock Manager Relationship Specialty Start Date End Date Jeff Strickland MD [address] [place] [address] PCP - General 03/05/18 [place] [address] [place] [address] Orthopedic Surgery 03/28/17 documented as of this encounter
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
--- OUTSIDE RECORDS SUMMARY | 2024-11-13 20:42 | XMS_ITS | Encounter Summary ---
Author Organization [facility] Address [facility] [place] [address] Care Team Providers Care Wealth Management Advisor Name Role Phone Deandre Bojorquez MD Unavailable [phone] eJff Strickland MD Primary Care Provider Encounter Details Date Type Department Care Team (Late st Contact Info) Description 04/29/2024 Lab Requisition [facility] MAIN LAB [address] [place] [phone] Alan Davenport MD [facility] OF ABD [place] [address] Social History Tobacco Use Types Packs/Day Years Used Date Smoking Tobacco: Never Smokeless Tobacco: Never Alcohol Use Standard Drinks/Week Comments Not Currently 0 (1 standard drink = 0.6 oz pur e alcohol) socially in past Sex and Gender Information Value Date Recorded Sex Assigned at Male 07/02/2021 2:37 PM CDT Legal Sex Male 10:14 PM THIN FILM TECHNICIAN Gender Identity Male 07/02/2021 2:37 PM [...] Visit [facility] - Endocrinology [address] [place] [address], [place] [address] Marbin Flores MD [address] [facility] DIV OF ABD [place] [address] Niraj Turner MD [address] [place] [address] 2L [place] [address] 2025 1:00 PM THIN FILM TECHNICIAN Office Visit [facility] - Neurology [address] [place] [address], [place] [address] Becky Wilson MD [address] [place] [phone] documented as of this encounter Procedures Procedure Name Priority Date/Time Associated Diagnosis Comments HOLD HLA SPECIMEN Routine 04/27/2024 1:4 8 PM CDT documented in this encounter Results * HOLD HLA SPECIMEN (04/27/2024 1:48 PM CDT) Hold HLA Specimen 04/29/2024 3:02 PM CDT [facility] Comment:The Hold HLA specime n has been received into the lab and will be held for 5 years at 4 degrees. Blood BLOOD SPECIMEN / Unknown 04/27/2024 1:48 PM CDT 04/29/2024 1:49 PM CDT us Alan Davenport MD LAB - BLOOD BANK ORDERABLES F inal Result [facility] [address] documented in this encounter Visit Diagnoses Not on filedocumented in this encounter Additional Health Concerns Infection Onset Date Last Indicated Resolved Time COVID-19 Under Investigation 09/13/2024 09/13/2024 09/13/2024 6:36 AM CDT documented as of this encounter Care Teams Wealth Management Advisor Relationship Specialty Start Date End Date Jeff Strickland MD [address] [place] [address] PCP - General 03/05/18 [place] [address] [address] Orthopedic Surgery 03/28/17 documented as of this encounter
--- OUTSIDE RECORDS SUMMARY | 2024-11-13 20:42 | XMS_ITS | Encounter Summary ---
Author Organization [facility] Address [facility] [place] [address] Care Team Providers Care Curb Hop Name Role Phone Deandre Bojorquez MD Unavailable [phone] Jeff Strickland MD Primary Care Provider [phone] Encounter Details Date Type Department Care Team (Late st Contact Info) Description 03/30/2024 Lab Requisition [facility] MAIN LAB [address] [place] [phone] Alan Davenport MD [facility] OF ABD [place] [address] Social History Tobacco Use Types Packs/Day Years Used Date Smoking Tobacco: Never Smokeless Tobacco: Never Alcohol Use Standard Drinks/Week Comments Not Currently 0 (1 standard drink = 0.6 oz pur e alcohol) socially in past Sex and Gender Information Value Date Recorded Sex Assigned at Male 07/02/2021 2:37 PM CDT Legal Sex Male 10:14 PM JEWEL STRIPPER Gender Identity Male 07/02/2021 2:37 PM CDT [...] Description 12/06/2024 10:40 AM CDT [facility] [address] [place] [address], [place] [address] Marbin Flores MD [address] [facility] DIV OF ABD [place] [address] Niraj Turner MD [address] [place] [address] 2L [place] [address] 2025 1:00 PM JEWEL STRIPPER Office Visit [facility] - Neurology [address] [place] [address], [place] [address] Becky Wilson MD [address] [place] [phone] documented as of this encounter Procedures Procedure Name Priority Date/Time Associated Diagnosis Comments HOLD HLA SPECIMEN Routine 03/25/2024 2:5 1 PM JEWEL STRIPPER documented in this encounter Results * HOLD HLA SPECIMEN (03/25/2024 2:51 PM JEWEL STRIPPER) Hold HLA Specimen 03/30/2024 4:[address] [facility] Comment:The Hold HLA specime n has been received into the lab and will be held for 5 years at 4 degrees. Blood BLOOD SPECIMEN / Unknown 03/25/2024 2:51 PM JEWEL STRIPPER 03/30/2024 2:51 PM JEWEL STRIPPER Alan Davenport MD LAB - BLOOD BANK ORDERABLES F inal Result [facility] [address] documented in this encounter Visit Diagnoses Not on filedocumented in this encounter Additional Health Concerns Infection Onset Date Last Indicated Resolved Time COVID-19 Under Investigation 09/13/2024 09/13/2024 09/13/2024 6:36 AM CDT documented as of this encounter Care Teams Curb Hop Relationship Specialty Start Date End Date Jeff Strickland MD [address] [place] [address] PCP - General 03/05/18 [place] [address] [address] Orthopedic Surgery 03/28/17 documented as of this encounter
--- OUTSIDE RECORDS SUMMARY | 2024-11-13 20:42 | XMS_ITS | Encounter Summary ---
Author Organization [facility] Address [address] [facility] [place] [address] Care Team Providers Care Scene And Lighting Design Lecturer Name Role Phone Deandre Bojorquez MD Unavailable [phone] Jeff Strickland MD Primary Care Provider [phone] Encounter Details Date Type Department Care Team [...] Recorded Patient Health Questionnaire-2 Score 6 10/05/2024 [facility] [place] of Occupat ional [facility] - Occupational Stress Questionnaire Answer Date Recorded [...] PM CDT Legal Sex Male 10:14 PM ORDER CLERK Gender Identity Male 07/02/2021 2:37 PM [...] Visit [facility] - Endocrinology [address] [place] [address], [place] [address] Marbin Flores MD [address] [facility] DIV OF ABD [place] [address] Niraj Turner MD [facility]5 [facility] 2L [place] [address] 2025 1:00 PM ORDER CLERK Office Visit [facility] - Neurology [address] [place] [address], [place] [address] Becky Wilson MD [address] [place] [phone] documented as of this encounter Visit Diagnoses Not on filedocumented in this encounter Care Teams Scene And Lighting Design Lecturer Relationship Specialty Start Date End Date Jeff Strickland MD [address] [place] [address] PCP - General 03/05/18 [place] [address] [address] Orthopedic Surgery 03/28/17 documented as of this encounter
--- OUTSIDE RECORDS SUMMARY | 2024-11-13 20:42 | XMS_ITS | Encounter Summary ---
Author Organization [facility] Address [address] [facility] [address] Care Team Providers Care Mammography Technologist Name Role Phone Deandre Bojorquez MD Unavailable [phone] Jeff Strickland MD Primary Care Provider [phone] Encounter Details Date Type Department Care Team (Late st Contact Info) Description 11/12/2024 Orders Only [facility] [address] [place] [address] Griffin Rodriguez MD [address] [facility] DIV OF [facility] [address] [place] [address] Social History Tobacco Use Types Packs/Day Years [...] Recorded Patient Health Questionnaire-2 Score 6 10/05/2024 [facility] of Occupat ional Health - [...] living in a chcf (including now)? No 09/24/2024 Sex and Gender Information Value Date Recorded Sex Assigned at Male 07/02/2021 2:37 PM CDT Legal Sex Male 10:14 PM AUTOMOBILE DAMAGE FIELD APPRAISER Gender Identity Male 07/02/2021 2:37 PM CDT [...] Visit [facility] - Endocrinology [address] [place] [address], [place] [address] Marbin Flores MD [address] [facility] DIV OF [place] [address] Niraj Turner MD [address] [place] [address] 2L Div [place] [address] 2025 1:00 PM AUTOMOBILE DAMAGE FIELD APPRAISER Office Visit [facility] - Neurology [address] [place] [address], [place] [address] Becky Wilsno MD [address] [place] [phone] documented as of this encounter Visit Diagnoses Not on filedocumented in this encounter Care Teams Mammography Technologist Relationship Specialty Start Date End Date Jeff Strickland MD [address] [place] [address] PCP - General 03/05/18 [place] [address] [address] [address] Orthopedic Surgery 03/28/17 documented as of this encounter
--- OUTSIDE RECORDS SUMMARY | 2024-11-13 20:42 | XMS_ITS ---
Author Organization [facility] Address [address] [place] [address] Care Team Providers Care Pharmaceutical Specialty Representative Name Role Phone Jeff Strickland MD Primary Care Provider Chan Nicholas MD Unavailable [phone] Alan Mccall MD Unavailable Pepito Haro MD PhD Unavailable Solange Guido MD Unavailable [phone] Dialysis Access Sites Type Status Location Placement [...] both eyes EGFR Routine 04/13/2024 5:06 AM ASSEMBLER METAL FURNITURE HEMOGLOBIN A1C STAT 04/10/2024 11:41 PM ASSEMBLER METAL FURNITURE LIPID PANEL STAT 04/10/2024 11:41 PM ASSEMBLER METAL FURNITURE from Last 3 Months or Most Recently [...] 300 + = 14 units Active FA-vit Kqczv-L-oibh-vitamin D3 (Dialyvite 800-Ultra D) 0.8-2,000 mg-unit tablet [...] total) by mouth 06/04/19 25 Active vitamins A,C,W-bgwu-gjnjbi (PreserVision AREDS) 4,296 mcg-226 mg-90 mg capsule [...] damage Assessment & Plan (03/09/2024 6:25 PM ASSEMBLER METAL FURNITURE): Vision OD trends mild improvement, though still [...] 03/26/2021 Assessment & Plan (03/26/2021 1:17 PM ASSEMBLER METAL FURNITURE): Enlarged mild sella turcica on a routine [...] units Assessment & Plan (03/26/2021 1:17 PM ASSEMBLER METAL FURNITURE): Chronic, uncontrolled, improving A1c today 7.7 % [...] WNL Assessment & Plan (03/26/2021 1:16 PM ASSEMBLER METAL FURNITURE): Pt currently on Levothyroxine 112 mcg oral [...] 11/18/2018 Assessment & Plan (01/21/2019 2:02 PM ASSEMBLER METAL FURNITURE): Symptomatic. Will request for esophageal manometry. Continue [...] well Assessment & Plan (03/26/2021 1:16 PM ASSEMBLER METAL FURNITURE): On statin therapy Tolerating well Last lipid [...] nephrectomy. 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 [id number] Immunizations Immunization Administration Dates Next Due Hep [...] = 0.6 oz pur e alcohol) rarely [facility] [employer] Answer Date Recorded In the past 12 months has [employer], gas, oil, or water [employer] threatened to shut off services in [...] often do you attend chur ch or sabianist services? Never 03/25/2023 Do you belong to any clubs o r organizations such as denominational groups, unions, fraternal or athletic groups, or [...] slept in a long-term (including now)? 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 Sex Male 2:23 AM ASSEMBLER METAL FURNITURE Gender Identity Not on file Sexual Orientation [...] CDT Respiratory Rate 16 04/13/2024 8:33 AM ASSEMBLER METAL FURNITURE Oxygen Saturation 98% 04/13/2024 8:33 AM ASSEMBLER METAL FURNITURE Inhaled Oxygen Concentration - - Weight 122.3 [...] Selwyn Wong M.D. LC: MARC Report ID: [id number] Reading Location: [id number] Procedure Note Dolores Wong MD - 10/12/2024 EXAM DESCRIPTION: MRI BRAIN WO CONTRAST REASON FOR STUDY: other symptoms and signs involving cognitive functionsand awareness Cognitive changes, confusion, worse over that last several weeks, noinjury or trauma but patient states he has had several surgeries recently TECHNIQUE: Multiplanar imaging includes non-contrasted T1, T2, FLAIR, and diffusion with ADC map sequences. Additional sequence(s) sensitive [employer] products. Images stored on PACS. COMPARISON: MRI [...] Selwyn Wong M.D. LC: MARC Report ID: [id number] Reading Location: [id number] us Provider Transcribed Order IMG MRI PROCEDURES [...] Result * (ABNORMAL) eGFR (04/13/2024 5:06 AM ASSEMBLER METAL FURNITURE) eGFR 5(L) >=60 mL/min/1. 73 m2 Comment: [...] reviewed 2020. Blood 04/13/2024 5:0 6 AM ASSEMBLER METAL FURNITURE 04/13/2024 5:31 AM ASSEMBLER METAL FURNITURE us Saul Engle MD LAB BLOOD ORDERABLES Final Resul t [facility] Department of Laboratories [place], [place] [id number] * (ABNORMAL) Lipid panel (04/10/2024 11:41 PM ASSEMBLER METAL FURNITURE) Cholesterol 145 30 - 199 mg/dL Comment: [...] 2017. Triglycerides 453(H) <=149 mg/dL [facility] Comment: Interpretive Data Ages < or [...] on 2017. HDL 22(L) >=40 mg/dL [facility] Comment: Interpretive Data Ages < or [...] 2017. LDL, calculated See Comment <=129 [facility] Comment: Unable to calculate LDL due [...] 2023. Non-HDL Cholesterol 123 mg/dL [facility] Comment: Interpretive Data Ages < or [...] revised on 2017. Chol/HDL ratio 7 [facility] Blood 04/10/2024 11:4 1 PM ASSEMBLER METAL FURNITURE 04/10/2024 11:55 PM ASSEMBLER METAL FURNITURE us Nicole Boo MD LAB BLOOD ORDERABLES Final Result [facility] Department [place] [address] from Last 3 Months or Most Recently Relevant to Health Maintenance
--- OUTSIDE RECORDS SUMMARY | 2024-11-13 20:42 | XMS_ITS | Encounter Summary ---
Author Organization [facility] Address [address] [place] [address] Care Team Providers Care Procurement Technician Name Role Phone Deandre Bojorquez MD Unavailable [phone] Jeff Strickland MD Primary Care Provider [phone] Encounter Details Date Type Department Care Team (Late st Contact Info) Description 03/12/2024 Lab Requisition [facility] MA[facility] [address] [place] [id number] Alan Davenport MD [facility] OF [facility]BD [facility] [address] Social History Tobacco Use Types Packs/Day Years Used Date Smoking Tobacco: Never Smokeless Tobacco: Never Alcohol Use Standard Drinks/Week Comments Not Currently 0 (1 standard drink = 0.6 oz pur e alcohol) socially in past Sex and Gender Information Value Date Recorded Sex Assigned at Male 07/02/2021 2:37 PM CDT Legal Sex Male 10:14 PM MEDICAL LIBRARIAN Gender Identity Male 07/02/2021 2:37 PM [...] 12/06/2024 10:40 AM CDT [facility] [address] [place] [address], [place] [address] Marbin Flores MD [address] [facility] DIV OF ABD [place]ANS[place] [address] Niraj Turner MD [address] [place] [address] 2L [place] [address] 2025 1:00 PM MEDICAL LIBRARIAN Office Visit [facility] - Neurology [address] [place] [address] [address] Becky Wilson MD [address] [place] [phone] documented as of this encounter Procedures Procedure Name Priority Date/Time Associated Diagnosis Comments HOLD HLA SPECIMEN Routine 03/05/2024 1:4 0 PM MEDICAL LIBRARIAN documented in this encounter Results * HOLD HLA SPECIMEN (03/05/2024 1:40 PM MEDICAL LIBRARIAN) Hold HLA Specimen 03/12/2024 3:00 PM MEDICAL LIBRARIAN [facility] Comment:The Hold HLA specime n has been received into the lab and will be held for 5 years at 4 degrees. Blood BLOOD SPECIMEN / Unknown 03/05/2024 1:40 PM MEDICAL LIBRARIAN 03/12/2024 1:40 PM MEDICAL LIBRARIAN Alan Davenport MD LAB - BLOOD BANK ORDERABLES F inal Result [facility] [address] documented in this encounter Visit Diagnoses Not on filedocumented in this encounter Additional Health Concerns Infection Onset Date Last Indicated Resolved Time COVID-19 Under Investigation 09/13/2024 09/13/2024 09/13/2024 6:36 AM CDT documented as of this encounter Care Teams Procurement Technician Relationship Specialty Start Date End Date Jeff Strickland MD [address] [place] [address] PCP - General 03/05/18 [place] [address] [address] Orthopedic Surgery 03/28/17 documented as of this encounter
--- OUTSIDE RECORDS SUMMARY | 2024-11-13 20:42 | XMS_ITS ---
Author Organization [facility] Address [facility] [place] [address] Care Team Providers Care Shell Sorter Name Role Phone Jeff Strickland MD Primary Care Provider Chan Nicholas MD Unavailable [phone] Alan Mccall MD Unavailable [phone] Pepito Haro MD PhD Unavailable [phone] Solange Guido MD Unavailable [phone] Active Problems Problem Noted Date Diagnosed Date [...] damage Assessment & Plan (03/09/2024 6:25 PM IT COMMUNICATIONS SPECIALIST): Vision OD trends mild improvement, though [...] Assessment & Plan (03/26/2021 1:17 PM IT COMMUNICATIONS SPECIALIST): Enlarged mild sella turcica on a [...] Assessment & Plan (03/26/2021 1:17 PM IT COMMUNICATIONS SPECIALIST): Chronic, uncontrolled, improving A1c today 7.7 [...] Assessment & Plan (03/26/2021 1:16 PM IT COMMUNICATIONS SPECIALIST): Pt currently on Levothyroxine 112 mcg [...] Assessment & Plan (01/21/2019 2:02 PM IT COMMUNICATIONS SPECIALIST): Symptomatic. Will request for esophageal manometry. [...] Assessment & Plan (03/26/2021 1:16 PM IT COMMUNICATIONS SPECIALIST): On statin therapy Tolerating well Last [...] nephrectomy. 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 B0yAILL Current Treatment and Therapy Plans No current [...] were not included. Kendall Carl 1955 Referring Basketball Coach: Alan Mccall Dialysis Info: NOD GFR 13 Type: Time: (Not currently on dialysis) days Blood Type: O NEG Body mass index is 37.36 kg/m . ALERTS Blood Typer: needs to establish Past Medical History: Diagnosis Date Arthropathy RA. Dr Strickland manages. 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 CKD (chronic kidney disease), stage V Community acquired pneumonia 2018 [facility] hospitalized. Diabetes mellitus 20 years. Lantus pen. Esophageal reflux takes med Hypercholesteremia 5-10 yrs meds Hypertension takes meds Hypothyroidism meds 20 years Kidney stones 5-6 years ago had 2 in the same year. Malignancy right kidney 2012 Obstructive sleep apnea 3 years. [facility]. Cannont remember doctors name Renal cell [...] file Gets together: Not on file Attends christianity service: Not on file Active member of [...] is the impression of this social work manager that Kendall Carl has several positive factors for Kidney transplant candidacy from a psychosocial perspective. Patient appears to have appropriate knowledge of illness. Patient has sufficient insurance coverage and stable financial situation for post transplant needs. No concerns regarding substance abuse, legal issues, or mental health needs. Patient has adequate support system and appropriate discharge plan. Plan: sawmill worker to provide supportive services as needed. Patient appears to be a reasonable candidate for transplant from a psychosocial perspective. -Post transplant arrangement forms are needed prior to being listed. -Updated toxicology results needed, per protocol Psychiatric Consult Recommended: No Transplant Hardwood Floor Installation Helper: Joy Tam LCSW RD: 11/09/2019 BMI= [...] Assessment & Plan (01/21/2019 2:02 PM IT COMMUNICATIONS SPECIALIST): The pain is persistent. The patient [...] has had extensive cardiac workup by the linderman operator including coronary angiogram. He has chest [...]
--- OUTSIDE RECORDS SUMMARY | 2024-11-13 20:42 | XMS_ITS | Encounter Summary ---
Author Organization [facility] Address [address] [place] [address] Care Team Providers Care Motors And Generators Inspector Name Role Phone Deandre Bojorquez MD Unavailable [phone] Jeff Strickland MD Primary Care Provider [phone] Encounter Details Date Type Department Care Team (Late st Contact Info) Description 02/04/[address] [facility] LAB [address] [place] [phone] Alan Davenport MD [facility] [place] [address] Social History Tobacco Use Types Packs/Day Years Used Date Smoking Tobacco: Never Smokeless Tobacco: Never Alcohol Use Standard Drinks/Week Comments Not Currently 0 (1 standard drink = 0.6 oz pur e alcohol) socially in past Sex and Gender Information Value Date Recorded Sex Assigned at Male 07/02/2021 2:37 PM CDT Legal Sex Male 10:14 PM TRANSFORMER REPAIRER Gender Identity Male 07/02/2021 2:37 PM CDT [...] Description 12/06/2024 10:40 AM CDT [facility] [address] [place] [address], [place] [address] Marbin Flores MD [address] [facility] DIV [place] [address] Niraj Turner MD [address] [place] [address] 2L Div [place] [address] 2025 1:00 PM TRANSFORMER REPAIRER Office Visit [facility] - Neurology [address] [place] [address] [address] Becky Wilson MD [address] [place] [phone] documented as of this encounter Procedures Procedure Name Priority Date/Time Associated Diagnosis Comments HOLD HLA SPECIMEN Routine 01/27/2024 3:2 3 PM TRANSFORMER REPAIRER documented in this encounter Results * HOLD HLA SPECIMEN (01/27/2024 3:23 PM TRANSFORMER REPAIRER) Hold HLA Specimen 02/04/2024 4:31 PM TRANSFORMER REPAIRER [facility] Comment:The Hold HLA specime n has been received into the lab and will be held for 5 years at 4 degrees. Blood BLOOD SPECIMEN / Unknown 01/27/2024 3:23 PM TRANSFORMER REPAIRER 02/04/2024 3:23 PM TRANSFORMER REPAIRER Alan Davenport MD LAB - BLOOD BANK ORDERABLES F inal Result [facility] [address] documented in this encounter Visit Diagnoses Not on filedocumented in this encounter Additional Health Concerns Infection Onset Date Last Indicated Resolved Time COVID-19 Under Investigation 09/13/2024 09/13/2024 09/13/2024 6:36 AM CDT documented as of this encounter Care Teams Motors And Generators Inspector Relationship Specialty Start Date End Date Jeff Strickland MD [address] [place] [address] PCP - General 03/05/18 [place] [address] [address] Orthopedic Surgery 03/28/17 documented as of this encounter
[2024-11-13 20:46] LABS: Alanine Aminotransferase 64 U/L (6-50); Albumin Level 2.9 g/dL (3.5-5.1); Alkaline Phosphatase 135 U/L (38-126); Anion Gap 12 mmol/L (4-12); Aspartate Amino Transferase 56 U/L (17-59); Bilirubin,Total 0.2 mg/dL (0.2-1.3); Blood Urea Nitrogen 31 mg/dL (9-20); Calcium 8.1 mg/dL (8.4-10.2); Carbon Dioxide 26 mmol/L (22-30); Chloride 95 mmol/L (98-107); Estimated CRCL calculation 10 ml/min; Estimated Glomerular Filt Rate 6; Glucose 183 mg/dL (65-110); Magnesium 1.2 mg/dL (1.6-2.3); Potassium 3.5 mmol/L (3.4-5.0); Sodium 133 mmol/L (137-145); Total Protein 5.8 g/dL (6.3-8.2)
[2024-11-13] MEDS: MAGNESIUM SULF 2 GM/WATER 50ML 2 GM/50 ML BAG IVPB (21:02)
--- NOTE | 2024-11-13 21:02 | ED.DIZZY ---
HPI - Dizziness General Chief Complaint: Dizziness Stated Complaint: Dizzy, OLVERA since 1700, recent eye surgery Time Seen by Provider: 11/13/24 20:19 History of Present Illness HPI Narrative: Patient is a 69-year-old male who presents to the emergency department this evening with multiple complaints. Patient states that he has been having dizziness associated with frontal headache which has been ongoing ever since he had surgery to his left eye at [facility]. Since then patient has also been having floaters in the left eye, denies any vision loss or blurry vision. Patient states that the dizziness is not intermittent or positional. Patient did take some Tylenol prior to arrival with no relief of his headache. Patient is denying any symptoms or concerns at this time. Related Data Home Medications ?Medication ?Instructions ?Recorded ?Confirmed ?Last Taken ?Type aspirin 81 mg tablet,delayed 81 mg PO HS 02/01/19 11/11/24 08/04/24 History release (Sami Low Dose Aspirin) vit C 250 mg-vit E 200 unit-zinc 1 tablet PO Q12H 02/01/19 11/11/24 08/05/24 History 12.5 mg-copper 1 is-vlk-nbnmxv tablet (ICaps AREDS2 (copper citrate)) cholecalciferol (vitamin D3) 125 125 mcg PO DAILY 10/01/22 11/11/24 08/05/24 History mcg (5,000 unit) tablet (Vitamin D3) atorvastatin 80 mg tablet 80 mg PO HS 09/02/23 11/11/24 08/04/24 History folic acid 0.8 mg-vit B comp with 800 tablet PO DAILY 04/03/24 11/11/24 08/05/24 History X-mapy-vxfaoiz D3 2,000 unit tablet (Dialyvite 800-Ultra D) insulin aspart U-100 100 unit/mL 1 sliding scale dose subcut TID 04/03/24 11/11/24 08/05/24 History (3 mL) subcutaneous pen (Novolog FlexPen U-100 Insulin aspart) insulin glargine 100 unit/mL (3 35 unit subcut HS 04/03/24 11/11/24 08/04/24 History mL) subcutaneous pen (Basaglar KwikPen U-100 Insulin) lisinopril 20 mg tablet 20 mg PO BID 04/21/24 11/11/24 08/05/24 History blood-glucose transmitter (Dexcom 04/23/24 11/11/24 Unknown History G6 Transmitter device) carvedilol 25 mg tablet 25 mg PO BID 06/17/24 11/11/24 08/05/24 History tamsulosin 0.4 mg capsule 0.4 mg PO HS 06/17/24 11/11/24 08/04/24 History clopidogrel 75 mg tablet 75 mg PO HS 07/25/24 11/11/24 08/04/24 History furosemide 80 mg tablet 160 mg PO BID 09/23/24 11/11/24 Unknown History midodrine 2.5 mg tablet 2.5 mg PO BID 11/09/24 11/11/24 Unknown History potassium chloride 20 mEq 20 meq PO DAILY 11/09/24 11/11/24 Unknown History tablet,extended release (K-Tab) Allergies Allergy/AdvReac Type Severity Reaction Status Date / Time oxycodone AdvReac Unknown Hallucinati Verified 11/13/24 20:08 ng Review of Systems Review of Systems: All systems are reviewed and are negative unless stated otherwise in the HPI. [facility] Past Medical History Medical History Brain fog Dementia Hypertensive heart disease with heart failure Chronic diarrhea Family history of colon cancer in father Chronic ethmoidal sinusitis Nasal congestion Bilateral impacted cerumen Allergic rhinitis Chronic sinusitis Chronic recurrent sinusitis Hypertensive CHF C. difficile colitis Arthritis Kidney stones Benign prostatic hyperplasia Coronary artery disease End-stage renal disease on peritoneal dialysis Obstructive sleep apnea Insulin dependent type 2 diabetes mellitus Renal cell carcinoma Status post partial left nephrectomy. Dyslipidemia Clostridium difficile infection Gastroesophageal reflux disease Depression with anxiety Hypothyroidism Cirrhosis Pituitary tumor Status post resection. Anemia Chronic diastolic (congestive) heart failure Hypertension Surgical History Surgical History History of open reduction and internal fixation (ORIF) procedure (11/2022) Screw fixation of sternal fracture. History of colonoscopy with polypectomy History of umbilical hernia repair History of inguinal hernia repair History of coronary artery stent placement History of cardiac catheterization (08/2020) Stent x2 to the LAD. History of arthroplasty of right knee History of cataract extraction History of pituitary surgery (11/2021) History of partial nephrectomy Partial left nephrectomy for renal cell carcinoma. History of cholecystectomy (2007) Family History Family History Mother Aneurysm Hypertension Cerebrovascular accident Heart murmur Father Carcinoma of colon Social History Social History Social History: Surrogate medical decision maker: Harriet Carl, spouse. Code status: Full code. Smoking status: Never smoker Second hand tobacco smoke exposure: No Alcohol intake: never Alcohol use details: rare, holidays Substance use: never Substance use type: does not use Do You Feel Safe in your Home?: Yes Lack of Transportation: No Lack of Food: Never True Current Housing: I Have Housing Concerned About Future Housing: No Difficulty Paying Gas/Electric Bills: No Difficulty Paying for Meds: No Currently Unemployed: No Education: Trade/Vocational Certificate Difficulty w/ Childcare or Family Care: No Living arrangements: with family Additional living arrangements comments: Lives with spouse in [place]. Occupation/Education: retired Additional occupation/education comments: [employer]. Spiritual care concerns: No Agree to blood products: Yes Exam Narrative: General: Alert, awake, afebrile, in no acute distress. HEENT: PERRL, no rhinorrhea, no post nasal drip, oropharynx clear. Neck: Trachea midline, no JVD, no lymphadenopathy. Cardiovascular: Regular rate and rhythm, no murmurs, rubs or gallops, no peripheral edema. Respiratory: Clear to auscultation bilaterally, no tachypnea, no wheezing, no rhonchi, no rubs, no respiratory distress. Abdomen: Soft, nontender, nondistended, no rebound, no guarding, no peritoneal signs. Musculoskeletal: No joint swelling or deformity, normal muscle tone. Skin: No rashes or petechia, no signs of infection. Psychiatric: Alert and oriented, normal behavior and judgment for situation. Neurological: Alert and oriented to person, place, and time. Follows all commands. No focal deficits, speech is clear and fluent. Course Vital Signs Vital signs: Vital Signs Temperature 97.8 F 11/13/24 20:03 Pulse Rate 65 11/13/24 20:03 Respiratory Rate 20 11/13/24 20:03 Blood Pressure 127/63 11/13/24 20:03 Pulse Oximetry 100 11/13/24 20:03 Oxygen Delivery Room Air 11/13/24 20:03 Temperature 98.8 F 11/13/24 22:58 Pulse Rate 65 11/13/24 22:58 Respiratory Rate 11 L 11/13/24 22:58 Blood Pressure 122/56 L 11/13/24 22:58 Pulse Oximetry 100 11/13/24 22:58 Oxygen Delivery Room Air 11/13/24 20:03 MDM - Dizziness MDM Narrative Medical decision making narrative: The patient was evaluated by myself in the emergency department. History is obtained from patient who is an independent historian and physical exam was performed. External medical records were reviewed at this time. IV was established and pertinent tests were ordered. Patient was administered 125 mg IV Solu-Medrol, 10 mg of IV Reglan and 25 mg of IV Benadryl for headache at this time. He was also administered a 500 cc IV fluid bolus with normal saline fluid. EKG was obtained which revealed sinus rhythm rate of 66 beats per min, no evidence of acute ischemia. EKG was independently interpreted by me and is currently pending official cardiology read. Laboratory results obtained revealing a magnesium level of 1.2 otherwise unremarkable. Patient's magnesium level is chronically low, usually ranging between 0.8-1.5. Kidney function is at his baseline. At this time patient was administered 2 g of IV magnesium. Patient is refusing CT imaging of his brain at this time stating that he does not want to wait for stat read as they take too long to read the scans. Patient is alert and oriented to person, place, time and situation, sound of mind and capable of making his own medical decisions. He understands that his dizziness could be central in nature including a stroke and is still refusing CT scans. Differential diagnosis considerations include central versus peripheral vertigo, dehydration, electrolyte derangements, migraine headache. Comorbidities impacting this visit include history of end-stage renal disease on peritoneal dialysis. I have evaluated and discussed social determinants of health with the patient that could potentially impact subsequent diagnosis and treatment plans. On repeat assessment of the patient, reevaluation revealed that the patient is doing well and is in no acute distress. Patient symptoms have improved since he arrived to our emergency department. Repeat vital signs were all reviewed and noted to be stable. Differential diagnosis and treatment plan were discussed with the patient at bedside. Patient agrees with discussion and after shared medical decision making agrees with discharge. All questions were answered to the patient's satisfaction. Patient will follow up with his PCP in 3-5 days. Patient was provided with strict return precautions and instructed to return to the emergency department if any new or worsening symptoms develop. The patient was discharged in stable condition. Lab Data 11/13/24 20:31 11/13/24 20:31 Labs: Lab Results 11/13/24 Range/Units 20:31 WBC 7.7 (4.5-10.0) K/mm3 RBC 3.72 L (4.6-6.20) M/mm3 Hgb 10.6 L (14.0-18.0) g/dL Hct 33.5 L (42.0-52.0) % MCV 90.1 (80-100) fl MCH 28.5 (26-34) pg MCHC 31.6 L (32-36) g/dl RDW 17.6 H (11.5-14.5) % Plt Count 202 (150-375) k/mm3 MPV 9.9 (7.4-10.4) fl Immature Gran % (Auto) 1.2 H (0-0.5) % Neut % (Auto) 66.5 (45.5-73.1) % Lymph % (Auto) 16.9 L (18.3-44.2) % Sherman % (Auto) 14.3 H (2.6-8.5) % Eos % (Auto) 1.0 (0-4.4) % Baso % (Auto) 0.1 L (0.2-1.2) % Lymph # (Auto) 1.30 (0.9-3.2) K/mm3 Sherman # (Auto) 1.1 H (0.1-0.6) K/mm3 Eos # (Auto) 0.1 (0-0.3) K/mm3 Baso # (Auto) 0.0 (0.0-0.1) K/mm3 Abs Immat Gran (auto) 0.09 H (0.00-0.031) K/mm3 Absolute Neuts (auto) 5.1 (1.3-6.7) K/mm3 Absolute Nucleated RBC 0.000 (0.0-0.012) K/mm3 Nucleated RBC % 0.0 (0.0-0.2) % Sodium 133 L (137-145) mmol/L Potassium 3.5 (3.4-5.0) mmol/L Chloride 95 L (98-107) mmol/L Carbon Dioxide 26 (22-30) mmol/L Anion Gap 12 (4-12) mmol/L BUN 31 H (9-20) mg/dL Creatinine 8.38 H (0.7-1.3) mg/dL Estim Creat Clear Calc 10 ml/min Estimated GFR 6 L (59 - ) Glucose 183 H (65-110) mg/dL Calcium 8.1 L (8.4-10.2) mg/dL Magnesium 1.2 L (1.6-2.3) mg/dL Total Bilirubin 0.2 (0.2-1.3) mg/dL AST 56 (17-59) U/L ALT 64 H (6-50) U/L Alkaline Phosphatase 135 H (38-126) U/L Total Protein 5.8 L (6.3-8.2) g/dL Albumin 2.9 L (3.5-5.1) g/dL Discharge Plan Discharge Clinical Impression: Cephalalgia, Dizziness, Hypomagnesemia Patient Disposition: Home Condition: Improved Instructions: Antibiotic Form, Dizziness (ED) Additional Instructions: Please follow-up with your family doctor within the next 3-5 days. Return emergency want any new or worsening symptoms develop. Patient Language: Kiswahili Prescriptions: No Action aspirin [Sami Low Dose Aspirin] 81 mg Tablet,Delayed Release (Dr/Ec) 81 mg PO HS ICaps AREDS2 (copper citrate) 250 mg-200 unit -12.5 mg-1 mg Tablet 1 tablet PO Q12H pantoprazole 40 mg tablet,delayed release (DR/EC) 40 mg PO QAM Qty: 30 3RF (DME) Dexcom G6 Transmitter Device See Rx Instructions .Route Rx Instructions: As directed gabapentin 100 mg tablet 100 mg PO BID Qty: 60 1RF lanthanum 1,000 mg tablet,chewable 1,000 mg PO TID Qty: 1 0RF Rx Instructions: administer with food; chew thoroughly before swallowing furosemide 80 mg tablet 160 mg PO BID lisinopril 20 mg tablet 20 mg PO BID midodrine 2.5 mg tablet 2.5 mg PO BID Rx Instructions: do not give last dose of day after 6PM or within 4 hrs of bedtime potassium chloride [K-Tab] 20 mEq tablet extended release 20 meq PO DAILY donepezil [Aricept] 5 mg tablet 5 mg PO QHS Qty: 90 1RF Rx Instructions: increase to 2 tablets after 1 month escitalopram oxalate [Lexapro] 10 mg tablet 10 mg PO DAILY Qty: 30 3RF famotidine 20 mg tablet 20 mg PO DAILY Qty: 30 0RF ondansetron 4 mg tablet,disintegrating 4 mg PO Q8H PRN (Reason: nausea and vomiting) Qty: 8 0RF cholecalciferol (vitamin D3) [Vitamin D3] 125 mcg (5,000 unit) Tablet 125 mcg PO DAILY atorvastatin 80 mg tablet 80 mg PO HS carvedilol 25 mg tablet 25 mg PO BID tamsulosin 0.4 mg capsule 0.4 mg PO HS Dialyvite 800-Ultra D 0.8-2,000 mg-unit tablet 800 tablet PO DAILY insulin aspart U-100 [Novolog FlexPen U-100 Insulin] 100 unit/mL (3 mL) insulin pen 1 sliding scale dose subcut TID Patient Comments: PATIENT TAKES 5 UNITS WITH MEALS SCHEDULED AND GOES UP TO 15 UNITS IF IT GETS TO 300 insulin glargine [Basaglar KwikPen U-100 Insulin] 100 unit/mL (3 mL) insulin pen 35 unit subcut HS Patient Comments: 40 UNITS IN MORNING clopidogrel 75 mg tablet 75 mg PO HS hydrocodone-acetaminophen 5-325 mg tablet 1 tablet PO Q6H PRN (Reason: pain) Qty: 30 0RF levothyroxine 112 mcg tablet 112 mcg PO DAILY Qty: 90 2RF Follow-up/Referrals: Jeff Strickland MD [Primary Care Provider, Family Practice] - 3 Days Time of Disposition: 20:57
[2024-11-13] MEDS: METOCLOPRAMIDE HCL INJ 10 MG/2 ML VIAL IV PUSH (21:03)
[2024-11-13] MEDS: MECLIZINE HCL 25 MG TABLET PO (21:03)
[2024-11-13] MEDS: SODIUM CHLORIDE 0.9% IV 1,000 ML 500 ML IV CONT (21:28)
== END 2024-11-13 23:13 | disposition home or self-care (01) ==
PROVIDERS: Emergency Provider Emergency Medicine; PCP Family Medicine
DX: R51.9 Headache, unspecified (principal); Z20.822 Contact with and (suspected) exposure to COVID-19
CPT/HCPCS: 36415; 80053; 83735; 85025; 93005; 96365; 96366; 96375; 99284; A9270; J1200; J2765; J2919; J3475; J7030

== ENCOUNTER 2024-11-16 17:59 | Emergency (ER) | payer MEDICARE, SELFPAY ==
--- OUTSIDE RECORDS SUMMARY | 2009-04-18 10:00 | XMS_ITS | Continuity of Care Document ---
Author Organization [facility] Address [address] [place] [address] Phone Care Team Providers Care Veterinary Receptionist Name Role Phone Kee Rodriguez Unavailable Unavailable Procedures Procedure Date Office/outpatient Visit, Est Eye Exam Established Pt Advance Directives Directive Yes / No Effective Date File Name No Information Encounters Encounter Description Practice Location Reason(s) For Visit Diagnoses Date Provider Providers Copied on Encounter Office/outpat ient Visit, Est [facility], [address] [place] [address] [address], [place], [place], [address], tel:[phone] SEC [facility] [place] No Information Mar-0 2-201 0 Krishnasamy Kee. [address] [facility] [place] [address], [place], [place], [facility], [place]. tel:[phone] [facility], [address] [place] [address] [address], [place], [place], [address], tel:[phone] SEC [facility] No Information Nhan-3 0-200 7 David OD Freddy. [address], [place], [place], [facility], [place]. tel:[phone] Family History Family Member Type Diagnosis Age At Onset No Information Payers Payer name Insurance type Covered republican ID Authoriza tion(s) No Information Social History [...]
--- OUTSIDE RECORDS SUMMARY | 2009-04-18 10:00 | XMS_ITS | Continuity of Care Document ---
Author Organization [facility] Address [address] [place] [address] Phone Care Team Providers Care Optometrist Name Role Phone Kee Rodriguez Unavailable Unavailable Procedures Procedure Date Office/outpatient Visit, Est Eye Exam Established Pt Advance Directives Directive Yes / No Effective Date File Name No Information Encounters Encounter Description Practice Location Reason(s) For Visit Diagnoses Date Provider Providers Copied on Encounter Office/outpat ient Visit, Est [facility], [address] [place] [address] [address], [place], [place], [address], tel:[phone] SEC [facility] No Information Mar-0 2-201 0 Krishnasamy Kee. [address] [facility] [place] [address], [place], [place], [facility], [place]. tel:[phone] [facility], [address] [place] [address] [address], [place], [place], [address], tel:[phone] SEC [facility] No Information Nhan-3 0-200 7 David OD Freddy. [address], [place], [facility], [place]. tel:[phone] Family History Family Member Type Diagnosis Age [...]
--- OUTSIDE RECORDS SUMMARY | 2023-09-09 06:59 | XMS_ITS | Continuity of Care Document ---
Author Organization [facility] [place] Address [address] [place] [address] Phone Care Team Providers Care Medication Manager Name Role Phone Olu Payan Unavailable Unavailable Procedures Procedure Date Therapeutic Activities Neuromuscular Re-Ed Therapeutic Exercise Therapeutic Activities Neuromuscular Re-Ed Hot or Cold Pack Therapeutic Activities Neuromuscular Re-Ed Therapeutic Exercise Hot or Cold Pack Therapeutic Activities Neuromuscular Re-Ed Therapeutic Exercise Neuromuscular Re-Ed Therapeutic Activities Therapeutic Exercise Therapeutic Activities Neuromuscular Re-Ed Therapeutic Exercise Manual Therapy Therapeutic Activities Neuromuscular Re-Ed Hot or Cold Pack Therapeutic Exercise Neuromuscular Re-Ed Therapeutic Exercise Manual Therapy Doc neg elder mal no plan PT Evaluation Moderate Complexity Neuromuscular Re-Ed Therapeutic Exercise Manual Therapy Advance Directives Directive Yes / No Effective Date File Name No Information Encounters Encounter Description Practice Location Reason(s) For Visit Diagnoses Date Provider Providers Copied on Encounter [facility], [place], [place], [id number], tel:[phone] [place] No Information 4 Gladis Olu. [address] [place] [address], [address], [place], [place], [facility], . tel: [phone] [address] [place] [address], [place], [place], [id number], tel:[phone] [place] No Information 4 Genoveva Mcdonald. . Referring Provider: Jeff Strickland [address] [place] [address] [address], [place], [place], [facility]. tel:[phone] [place] [address], [place], [place], [id number], tel:[phone] [place] No Information 4 Gladis Olu. [address] [place] [address], [address], [place], [place], [facility], . tel: [phone] Referring Provider: Yanira Chin [facility] [address], [place], [facility]. tel:[phone] [place] [address], [place], [place], [id number], tel:[phone] [place] No Information 4 Gladis Raines. [address] [place] [address], [address], [place], [place], [facility], . tel: [phone] Referring Provider: Yanira Chin [facility] [address], [place], [address]. tel:[phone], [id number], tel:[phone] [place] No Information 4 Jacinto Fairchild. . Referring Provider: Yanira Chin [facility] [address], [place], [address]. tel:[phone], [place], [place], [id number], [place] tel:[phone] [place] No Information 4 Jacinto Fairchild. . Referring Provider: Jeff Strickland [address] [place] [address] [address], [place], [facility]. tel:[phone], [id number], tel:[phone] [place] No Information 4 Genoveva Mcdonald. . Referring Provider: Jeff Strickland [address] [place] [address] [address], [place], [facility]. tel:[phone], [id number], tel:[phone] [place] No Information 4 Gladis Raines. [address] [facility], [address], [place], [facility], . tel: [phone] Referring Provider: Jeff Strickland [address] [place] [address] [address], [place], [facility]. tel:[phone], [id number], tel:[phone] [place] No Information 0 4 Genoveva Mcdonald. . Referring Provider: Jeff Strickland [address] [place] [address] [address], [place], [facility]. tel:[phone], [place], [id number], [place] tel:[phone] [place] No Information 0 4 Gladis Raines. [address] [facility], [address], [place], [place], [facility], . tel: [phone] Referring Provider: Jeff Strickland [address] [place] [address] [address], [place], [facility]. tel:[phone] Family History Family Member Type Diagnosis Age At Onset No Information Payers Payer name Insurance type Covered democrat ID Diego suarez(ernesto Hadley [id number] Social History Type Description Quantity Date Captured Comments Sex Male Smoking Status No Information Chief Complaint And Reason For Visit No Information Reason For Referral Reason For Referral No Information Plan Of Treatment Date Type Action Status Referral Ordered: Referrals: Specialist. Evaluate and Treat (related to Adjustment disorder with depressed mood) ordered Referral Ordered: Depression: Depression management program timeframe: 1 Day. (related to Depression) ordered Referral Ordered: Clinical Psychology (related to Depression) ordered History Of Present Illness Encounter Date Complaint History Of Prese nt Illness No Information Functional Status Date Functional Assessmen t No Information Instructions Date Instruction Additional Infor mation No Information Assessments Type Assessment Date No Information Patient Care Teams Name Effective Dates (start - stop) Status Members No Information
--- OUTSIDE RECORDS SUMMARY | 2024-01-19 09:15 | XMS_ITS ---
Author Organization [facility] Address [address] [place] [address] [place] [address] Care Team Providers Care Chemical Treatment Operator Name Role Phone DONNIE WOOD MD Primary Care Provider Lance Sergio Trujillo Unavailable [phone] REASON FOR VISIT Left > Right Low [...] and lower extremity pain (M51.362) Active confirmed Information temporarily unavailable VITAL SIGNS Blood pressure systolic 157 mm Hg 01/19/20 24 Blood pressure diastolic 78 mm Hg 024 Heart Rate 69 /min 01/19/2024 Respiratory Rate 18 /min 01/19/2024 Height 5 ft 9 in in 01/19/2024 Weight 229 lbs 01/19/2024 BMI 33.81 kg/m2 01/19/2024 Post procedure dl=617/71,65, 16.Discharged home ambulatory with per ambulatory. No acute distress noted. Encounters Encounter Location Date Provider Diagnosis [facility] [address] [place] [address] 01/19/2024 Sergio Schmitzick Radiculopathy, lumba r region [...] discharged home in good condition with a light truck driver. X-ray time: 25 seconds Progress [...] patient's typical axial low back pain. John's, [place]'s and Gaenslen's are positive bilaterally. There is [...] Radiographic Imaging MRI lumbar spine done on 8108/07: L2-3 annular bulge and facet arthropathy. L3-4: [...] and Follow-up: Follow-up Plan documen wendy:: Yes [facility] Quality 2020: MIPS Documented:: Compliant
--- OUTSIDE RECORDS SUMMARY | 2024-02-03 06:45 | XMS_ITS ---
Author Organization [facility] Address [address] [facility] [place] [address] Care Team Providers Care Docketing Specialist Name Role Phone DONNIE WOOD MD Primary Care Provider Lance Sergio Trujillo Unavailable [phone] ALLERGIES No Known Allergies REASON FOR VISIT [...] retired. 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 John's, [place]'s and Gaenslen's are positive bilaterally. There is [...]
--- OUTSIDE RECORDS SUMMARY | 2024-03-03 06:30 | XMS_ITS ---
Author Organization [facility] Address [address] [place] [address] [place] [address] Care Team Providers Care Contact Finger Assembler Name Role Phone DONNIE WOOD MD Primary Care Provider Lance Sergio Trujillo Unavailable [phone] ALLERGIES No Known Allergies REASON FOR VISIT [...] retired. 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 He denies tobacco, alcohol, or illicit drug abuse PROBLEMS Problem Type ICD Code Onset Dates Problem Status W/U Status Risk SNOMED Code Notes Problem Primary osteoarthritis, 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) Active confirmed Information temporarily unavailable VITAL SIGNS Blood pressure systolic 112 mm Hg 03/03/19 25 Blood pressure diastolic 62 mm Hg 025 Heart Rate 59 /min 03/03/2024 Respiratory Rate 18 /min 03/03/2024 Height 5 ft 9 in in 03/03/2024 Weight 229 lbs 03/03/2024 BMI 33.81 kg/m2 03/03/2024 Encounters Encounter Location Date Provider Diagnosis [facility] [address] [place] [address] 03/03/2024 Sergio Stynowick Pain in left knee M25.562 ; Primary osteoarthritis, unspecified shoulder M19.019 ; Other chest pain R07.89 ; Radiculopathy, lumbar region M54.16 ; Other intervertebral disc degeneration, lumbar region M51.36 ; 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 John's, [place]'s and Gaenslen's are positive bilaterally. There is [...] Radiographic Imaging MRI lumbar spine done on 81/: L2-3 annular bulge and facet arthropathy. L3-4: [...]
--- OUTSIDE RECORDS SUMMARY | 2024-03-08 07:45 | XMS_ITS ---
Author Organization [facility] Address [address] [place] [address] [place] [address] Care Team Providers Care Aviation Electrician Name Role Phone DONNIE WOOD MD Primary Care Provider Robba Sergio Trujillo Unavailable [phone] REASON FOR VISIT BILAT SHOULDER JOINT INJECTION (NEED XRAY - BEING DONE AT [facility]) MEDICATIONS Medication SIG (Take, Route, Frequency, Duration) [...] Location Date Provider Diagnosis [facility] [address] [place] [phone] 03/08/2024 Sergio Rivera Primary osteoarthritis, unspecified shoulder [...] home in good condition with a tow driver. X-ray time: 6 seconds Progress Notes [...] patient's typical axial low back pain. John's, [place]'s and Gaenslen's are positive bilaterally. There is [...] and Follow-up: Follow-up Plan documen wendy:: Yes [facility] Quality 2020: [facility] Documented:: Compliant
--- OUTSIDE RECORDS SUMMARY | 2024-03-31 10:13 | XMS_ITS ---
Author Organization [facility] Address [address] [facility] [place] [address] Care Team Providers Care Supervisor Abattoir Name Role Phone DONNIE WOOD MD Primary Care Provider Unavaila Sergio Trujillo Unavailable [phone] Encounters Encounter Location Date Provider Diagnosis [facility] [address] [facility] [place] [address] 03/31/2024 Sergio Rivera PLAN OF TREATMENT No Information
--- NOTE | ~2024-11-16 | CT_ITS ---
CT HEAD NON-CONTRAST Clinical History: severe headache Comparison: 11/07/2024 Technique: Unenhanced axial images skull base to vertex Coronal, sagittal reformats CT images acquired with automatic exposure control for dose reduction DLP: 681 mGy-cm Findings: Mild global atrophy. Mild white matter changes, typically chronic microvascular ischemic disease. Symmetrical bilateral calcifications within cerebellum, basal ganglia, and frontal lobe white matter. Prior pituitary resection Sulci, ventricles: Unremarkable. No intracerebral hemorrhage. No evidence acute territorial infarct. No mass effect, midline shift. Bony calvarium intact. Visualized paranasal sinuses: Sphenoid mucosal thickening. Mastoid air cells: Clear. IMPRESSION: 1. No acute intracranial findings or change from one week prior. Reviewed, dictated and finalized at location R.
--- OUTSIDE RECORDS SUMMARY | 2024-11-16 18:02 | XMS_ITS | Encounter Summary ---
Author Organization [facility] Healthcare Address [address] [place] [address] Care Team Providers Care Soft Work Wrapper Layer And Examiner Name Role Phone Jeff Strickland MD Primary Care Provider Chan Nicholas MD Unavailable [phone] Alan Mccall MD Unavailable [phone] Pepito Haro MD PhD Unavailable Solange Guido MD Unavailable [phone] Encounter Details Date Type Department Care Team (Late st Contact Info) Description 07/28/2024 Orders Only [facility] Information Management [address] [place] [address] Scanning, Provider Social History Tobacco Use Types Packs/Day Years Used Date Smoking Tobacco: Never Smokeless Tobacco: Never Alcohol Use Standard Drinks/Week Comments Yes 0 (1 standard drink = 0.6 oz pur e alcohol) rarely [facility] Utilities Answer Date Recorded In the past 12 months has [employer] electric, gas, oil, or water company threatened [...] often do you attend chur ch or quaker services? Never 03/25/2023 Do you belong to any clubs o r organizations such as yarsani groups, unions, fraternal or athletic groups, or [...] on file Legal Sex Male 2:23 AM LIFE INSURANCE ACTUARY Gender Identity Not on file Sexual Orientation [...] on filedocumented in this encounter Care Teams Soft Work Wrapper Layer And Examiner Relationship Specialty Start Date End Date Jeff Strickland MD [employer] [address] [place] [id number] PCP - General Family Medicine 04/02/18 Chan Nicholas MD [employer] [address] [address] Consulting Physician Gastroenterology 11/24/18 Alan Mccall MD [employer] [address] [address] Referring Physician Nephrology 11/24/18 Pepito Haro MD PhD [address] [place] [address] Consulting Physician Neurosurgery 12/03/22 Solange Guido MD [address] [facility] [address] [place] [address] Referring Physician Cardiovascular Disease 07/23/23 documented as of this encounter
--- OUTSIDE RECORDS SUMMARY | 2024-11-16 18:02 | XMS_ITS | Encounter Summary ---
Author Organization [facility] Address [facility] [place] [address] Care Team Providers Care Mother Tester Name Role Phone Deandre Bojoqruez MD Unavailable Jeff Strickland MD Primary Care Provider [phone] Encounter Details Date Type Department Care Team (Late st Contact Info) Description 09/30/2023 Lab Requisition [facility] [address] [place] [phone] Alan Davenport MD [facility] [place] [address] Social History Tobacco Use Types Packs/Day Years Used Date Smoking Tobacco: Never Smokeless Tobacco: Never Alcohol Use Standard Drinks/Week Comments Not Currently 0 (1 standard drink = 0.6 oz pur e alcohol) socially in past Sex and Gender Information Value Date Recorded Sex Assigned at Male 07/02/2021 2:37 PM CDT Legal Sex Male 10:14 PM BORING MILL SET UP OPERATOR VERTICAL Gender Identity Male 07/02/2021 2:37 PM CDT [...] Office Visit [facility] - Endocrinology [address] [place] [address], [place] [address] Marbin Flores MD [address] [facility] DIV [place] [address] Niraj Turner MD [address] [place] [address] 2L [place] [address] 2025 1:00 PM BORING MILL SET UP OPERATOR VERTICAL [facility] [address] [place] [address], [place] [address] Becky Wilson MD [address] [place] [phone] documented as of this encounter Procedures Procedure Name Priority Date/Time Associated Diagnosis Comments HOLD HLA SPECIMEN Routine 09/24/2023 3:2 7 PM CDT documented in this encounter Results * HOLD HLA SPECIMEN (09/24/2023 3:27 PM CDT) Hold HLA Specimen 09/30/2023 4:32 PM CDT [facility] Comment:The Hold HLA specime n has been received into the lab and will be held for 5 years at 4 degrees. Blood BLOOD SPECIMEN / Unknown 09/24/2023 3:27 PM CDT 09/30/2023 3:27 PM CDT us Alan Davenport MD LAB - BLOOD BANK ORDERABLES F inal Result [facility] [address] documented in this encounter Visit Diagnoses Not on filedocumented in this encounter Additional Health Concerns Infection Onset Date Last Indicated Resolved Time COVID-19 Under Investigation 09/13/2024 09/13/2024 09/13/2024 6:36 AM CDT documented as of this encounter Care Teams Mother Tester Relationship Specialty Start Date End Date Jeff Strickland MD [address] [place] [address] PCP - General 03/05/18 [place] [address] [address] Orthopedic Surgery 03/28/17 documented as of this encounter
--- OUTSIDE RECORDS SUMMARY | 2024-11-16 18:02 | XMS_ITS | Encounter Summary ---
Author Organization [facility] Address [facility] [place] [address] Care Team Providers Care Welder Fitter Name Role Phone Deandre Bojorquez MD Unavailable [phone] Jeff Strickland MD Primary Care Provider [phone] Encounter Details Date Type Department Care Team (Late st Contact Info) Description 05/29/2023 Lab Requisition [facility] [address] [place] [phone] Alan Davenport MD [facility] [place] [address] Social History Tobacco Use Types Packs/Day Years Used Date Smoking Tobacco: Never Smokeless Tobacco: Never Alcohol Use Standard Drinks/Week Comments Not Currently 0 (1 standard drink = 0.6 oz pur e alcohol) socially in past Sex and Gender Information Value Date Recorded Sex Assigned at Male 07/02/2021 2:37 PM CDT Legal Sex Male 10:14 PM BULB INSPECTOR Gender Identity Male 07/02/2021 2:37 PM [...] Office Visit [facility] - Endocrinology [address] [place] [address], [place] [phone] Marbin Flores MD [address] [facility] DIV OF [place] [address] Niraj Turner MD [address] [place] [address] 2L [place] [address] 2025 1:00 PM BULB INSPECTOR Office Visit [facility] - Neurology [address] [place] [address], [place] [address] Becky Wilson MD [address] [place] [phone] documented as of this encounter Procedures Procedure [...] inal Result [facility] ([facility]) [address] [place] [address] documented in this encounter Visit Diagnoses Not on filedocumented in this encounter Additional Health Concerns Infection Onset Date Last Indicated Resolved Time COVID-19 Under Investigation 09/13/2024 09/13/2024 09/13/2024 6:36 AM CDT documented as of this encounter Care Teams Welder Fitter Relationship Specialty Start Date End Date Jeff Strickland MD [address] [place] [address] PCP - General 03/05/18 [place] [address] [address] Orthopedic Surgery 03/28/17 documented as of this encounter
--- OUTSIDE RECORDS SUMMARY | 2024-11-16 18:02 | XMS_ITS | Clinical Summary ---
Author Organization [facility] Address [address] [place] [address] Care Team Providers Care Consumer Electronic Retail Specialist Name Role Phone Jeff Strickland MD [...] mouth daily. Active nystatin-triamc inolone (MYCOLOG II) 834739-4.1 UNIT/GM-% Cream 5 Active ondansetron (ZOFRAN-ODT) 4 [...] 10/29/2024 Telephone [facility] - Cardiology [facility] [address] [place] [address] Suly Smith APRN, DELIVERY CREW MEMBER 10/15/2024 Telephone [facility] Cardiology [facility] [address] [place] [address] Hannah Goodman MD 10/14/2024 2:40 PM CDT Clinical Support [facility] Cardiology [facility] [address] [facility] [phone] NurseAsim Cardiology Dressing change (Primary Dx) Discharge [...] st Contact Info) Description 04/11/2025 11:30 AM CUSTOMS INSPECTOR Office Visit [facility] - Cardiology - [place] [address] [place] [address] He Maylin, DO 2 [facility] [address] [address] Health Maintenance Due Date Last Done Comments [...] topic Insurance MEDICARE C [employer]ET[employer] Care Teams Consumer Electronic Retail Specialist Relationship Specialty Start Date End Date Jeff Strickland MD [address] [place] [address] PCP - General Family Medicine 10/14/24
--- OUTSIDE RECORDS SUMMARY | 2024-11-16 18:02 | XMS_ITS | Encounter Summary ---
Author Organization [facility] Address [facility]3 [place] [address] Care Team Providers Care Portable Feed Mill Operator Name Role Phone Deandre Bojorquez MD Unavailable [phone] Jeff Strickland MD Primary Care Provider [phone] Encounter Details Date Type Department Care Team (Late st Contact Info) Description 07/31/2023 Lab Requisition [facility] MAIN LAB [address] [place] [phone] Alan Davenport MD [facility]1 [facility] OF [place] [place] [address] Social History Tobacco Use Types Packs/Day Years Used Date Smoking Tobacco: Never Smokeless Tobacco: Never Alcohol Use Standard Drinks/Week Comments Not Currently 0 (1 standard drink = 0.6 oz pur e alcohol) socially in past Sex and Gender Information Value Date Recorded Sex Assigned at Male 07/02/2021 2:37 PM CDT Legal Sex Male 10:14 PM EMBEDDED HARDWARE ENGINEER Gender Identity Male 07/02/2021 2:37 PM [...] Visit [facility] - Endocrinology [address] [place] [address], [place] [address] Marbin Flores MD [address] [facility] DIV OF [place]BD [place] [address] Niraj Turner MD [address] [place] [address] 2L [place] [address] 2025 1:00 PM EMBEDDED HARDWARE ENGINEER Office Visit [facility] - Neurology [address] [place] [address], [place] [address] Becky Wilson MD [address] [place] [phone] documented as of this encounter Procedures Procedure Name Priority Date/Time Associated Diagnosis Comments HOLD HLA SPECIMEN Routine 07/23/2023 2:0 5 PM CDT documented in this encounter Results * HOLD HLA SPECIMEN (07/23/2023 2:05 PM CDT) Hold HLA Specimen 07/31/2023 3:32 PM CDT [facility]) Comment:The Hold HLA specime n has been received into the lab and will be held for 5 years at 4 degrees. Blood BLOOD SPECIMEN / Unknown 07/23/2023 2:05 PM CDT 07/31/2023 2:06 PM CDT us Alan Davenport MD LAB - BLOOD BANK ORDERABLES F inal Result [facility] [address] documented in this encounter Visit Diagnoses Not on filedocumented in this encounter Additional Health Concerns Infection Onset Date Last Indicated Resolved Time COVID-19 Under Investigation 09/13/2024 09/13/2024 09/13/2024 6:36 AM CDT documented as of this encounter Care Teams Portable Feed Mill Operator Relationship Specialty Start Date End Date Jeff Strickland MD [address] [place] [address] PCP - General 03/05/18 [place] [address] [address] Orthopedic Surgery 03/28/17 documented as of this encounter
--- OUTSIDE RECORDS SUMMARY | 2024-11-16 18:02 | XMS_ITS | Encounter Summary ---
Author Organization [facility] Address [address] [place] [address] Phone Care Team Providers Care Supervisor Fine Grading Name Role Phone Jeff Strickland MD Primary Care Provider Chan Nicholas MD Unavailable [phone] Alan Mccall MD Unavailable [phone] Lorna Lantigua MD Unavailable Juliette Savage RN Unavailable Pepito Haro MD PhD Unavailable [phone] Solange Guido MD Unavailable [phone] Letha Gil RN Unavailable Encounter Details Date Type Department Care Team (Late st Contact Info) Description 05/02/2021 Ophth Exam [facility] Medicine Ophthalmology [address] [place] [address] 1st [place] [phone] Corina Ventura MD PhD [address] [address] Social History Tobacco Use Types [...] on file Legal Sex Male 2:23 AM 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 04/08/2023 04/10/2023 07/07/2023 3:06 AM C DT COVID: Suspected 04/10/2024 04/10/2024 04/11/2024 1:24 AM ASSISTANT ASSOCIATE FULL PROFESSOR C. difficile suspected 04/11/2024 04/11/202404/11 1:21 PM ASSISTANT ASSOCIATE FULL PROFESSOR documented as of this encounter Eye Exam [...] arcade Normal Periphery Normal Normal Care Teams Supervisor Fine Grading Relationship Specialty Start Date End Date Jeff Strickland MD [address] [address] PCP - General Family Medicine 04/02/18 Chan Nicholas MD [address] [place] [address] [id number] Consulting Physician Gastroenterology 11/24/18 Alan Mccall MD [address] [place] [address] [address] Referring Physician Nephrology 11/24/18 Lorna Lantigua MD [facility] [address] [address] Consulting Physician Cardiology 11/24/18 07/22/23 Juliette Savage, RN [address] [place] [address] Nurse Navigator 06/04/21 03/14/22 Pepito Haro MD PhD [address] [place] [address] Consulting Physician Neurosurgery 12/03/22 Solange Guido MD [address] [facility] [address] [place] [address] Referring Physician Cardiovascular Disease 07/23/23 Letha Gil, RN [address] [facility] [address] [place] [address] SHOP Outpatient Typewriter Operator Automatic 04/14/24 04/18/24 documented as of this encounter
--- OUTSIDE RECORDS SUMMARY | 2024-11-16 18:02 | XMS_ITS | Encounter Summary ---
Author Organization [facility] Address [facility] [place] [address] Care Team Providers Care Chinese Medicine Practitioner Name Role Phone Deandre Bojorquez MD Unavailable [phone] Jeff Strickland MD Primary Care Provider [phone] Encounter Details Date Type Department Care Team (Late st Contact Info) Description 11/21/2023 Lab Requisition [facility] [address] [place] [phone] Alan Davenport MD [facility] [place] [address] Social History Tobacco Use Types Packs/Day Years Used Date Smoking Tobacco: Never Smokeless Tobacco: Never Alcohol Use Standard Drinks/Week Comments Not Currently 0 (1 standard drink = 0.6 oz pur e alcohol) socially in past Sex and Gender Information Value Date Recorded Sex Assigned at Male 07/02/2021 2:37 PM CDT Legal Sex 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 [address] [place] [address] [address] Becky Wilson MD [address] [place] [phone] documented as of this encounter Procedures Procedure Name Priority Date/Time Associated Diagnosis Comments HOLD HLA SPECIMEN Routine 11/18/2023 12: 16 PM CDT documented in this encounter Results * HOLD HLA SPECIMEN (11/18/2023 12:16 PM CDT) Hold HLA Specimen 11/21/2023 1:31 PM CDT [facility] Comment:The Hold HLA specime n has been received into the lab and will be held for 5 years at 4 degrees. Blood BLOOD SPECIMEN / Unknown 11/18/2023 12:16 PM CDT 11/21/2023 12:17 PM CDT us Alan Davenport MD LAB - BLOOD BANK ORDERABLES F inal Result [facility] [address] documented in this encounter Visit Diagnoses Not on filedocumented in this encounter Additional Health Concerns Infection Onset Date Last Indicated Resolved Time COVID-19 Under Investigation 09/13/2024 09/13/2024 09/13/2024 6:36 AM CDT documented as of this encounter Care Teams Chinese Medicine Practitioner Relationship Specialty Start Date End Date Jeff Strickland MD [address] [place] [address] PCP - General 03/05/18 [place] [address] [address] Orthopedic Surgery 03/28/17 documented as of this encounter
--- OUTSIDE RECORDS SUMMARY | 2024-11-16 18:02 | XMS_ITS | Patient Health Record ---
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 He denies tobacco, alcohol, or illicit drug abuse The patient is retired. He p reviously worked as a [employer] worker. 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 He denies tobacco, alcohol, or illicit drug abuse The patient is retired. He p reviously worked as a [employer] worker. 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 He denies tobacco, alcohol, or illicit drug abuse The patient is retired. He p reviously worked as a [employer] worker. 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 He denies tobacco, alcohol, or illicit drug abuse The patient is retired. He p reviously worked as a [employer] worker. 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 He denies tobacco, alcohol, or illicit drug abuse The patient is retired. He p reviously worked as a [employer] worker. 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 He denies tobacco, alcohol, or illicit drug abuse The patient is retired. He p reviously worked as a [employer] worker. 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 He denies tobacco, alcohol, or illicit drug abuse The patient is retired. He p reviously worked as a [employer] worker. 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 He denies tobacco, alcohol, or illicit drug abuse The patient is retired. He p reviously worked as a [employer] worker. 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 He denies tobacco, alcohol, or illicit drug abuse The patient is retired. He p reviously worked as a [employer] worker. 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 He denies tobacco, alcohol, or illicit drug abuse The patient is retired. 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 He denies tobacco, alcohol, or illicit drug abuse The patient is retired. He p reviously worked as a [employer] worker. 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 He denies tobacco, alcohol, or illicit drug abuse The patient is retired. 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 He denies tobacco, alcohol, or illicit drug abuse The patient is retired. 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) Active confirmed Information temporarily unavailable Problem Chronic pain syndrome (G89.4) Active confirmed Information temporarily unavailable Problem Primary osteoarthritis, 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) Active confirmed Informati on temporarily unavailable Problem Pain in left hip (M25.552) Active confirmed Information temporarily unavailable Problem Spondylosis without myelopathy or radiculopathy, lumbar region (M47.816) Active confirmed Information temporarily unavailable Problem Other intervertebral disc degeneration, lumbar region (M51.36) Active confirmed Information temporarily unavailable Problem Radiculopathy, lumbar region (M54.16) Active confirmed Information temporarily unavailable Problem Radiculopathy, lumbosacral region (M54.17) Active confirmed Information temporarily unavailable Problem Osseous stenosis of neural canal of lumbar region (M99.33) Active confirmed Information temporarily unavailable Problem shelter (current) use of anticoagulants (Z79.01) Active confirmed Information temporarily unavailable Problem Other intervertebral disc degeneration, lumbar region with discogenic back pain and lower extremity pain (M51.362) Active confirmed Information temporarily unavailable VITAL SIGNS Heart Rate 59 /min 03/03/2024 Respiratory Rate 18 /min 03/03/2024 Blood pressure diastolic 62 mm Hg 03/03/2024 Height 5 ft 9 in in 03/03/2024 Blood pressure systolic 112 mm Hg 03/03/2024 Weight 229 lbs 03/03/2024 BMI 33.81 kg/m2 03/03/2024 Encounters Encounter Location Date Provider Diagnosis [facility] [address] [place] [address] 01/12/2024 Sergio Stynowick Radiculopathy, lumba r region M54.16 ; Radiculopathy, lumbosacral region M54.17 ; Other chest pain R07.89 ; Other intervertebral disc degeneration, lumbar region M51.36 ; 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 ; Spondylosis without myelopathy or radiculopathy, lumbar region M47.816 and shelter (current) use of anticoagulants Z79.01 [facility] [address] [place] [address] 01/19/2024 Sergio Stynowick Radiculopathy, lumba r region M54.16 ; Other intervertebral disc degeneration, lumbar region with discogenic back pain and lower extremity pain M51.362 and 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 [facility] [address] [place] [address] 02/03/2024 Sergio Stynowick Other chest pain R07.89 ; Pain in left knee M25.562 ; Radiculopathy, lumbar region M54.16 ; Other intervertebral disc degeneration, lumbar region M51.36 ; 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 ; Spondylosis without myelopathy or radiculopathy, lumbar region M47.816 and shelter (current) use of anticoagulants Z79.01 [facility] [address] [place] [address] 03/03/2024 Sergio Stynowick Pain in left knee M25.562 ; Primary osteoarthritis, unspecified shoulder M19.019 ; Other chest pain R07.89 ; Radiculopathy, lumbar region M54.16 ; Other intervertebral disc degeneration, lumbar region M51.36 ; 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 ; Spondylosis without myelopathy or radiculopathy, lumbar region M47.816 ; 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 I made the patient aware that he will be at an increased risk for a thromboembolic event during this time and he is willing to accept this risk. The patient was instructed to notify his primary care physician and/or analysis evaluator to obtain clearance prior to discontinuing this medication. 02/03/2024 termite control technician (current) use of anticoagulants (ICD-10 - Z79.01) [...] As a result of our discussion, Dr. Rivear has determined the above assessment and directed [...] 09/28/2020 MRI : Lumbar Spine without contrast ([id number]) 09/28/2020 XRAY : Shoulder LEFT 03/03/2024 xray right shoulder 03/03/2024 Insurance Providers Payer Name Payer Address Payer Phone Subscriber Number Group Number Insured Name Patient Relationship to Insured Coverage Start Date Coverage End Date [employer] MEDICARE [address] [place] [address] [id number] GRACE INTERIANO Self - patient is the insured MEDICAL (GENERAL) HISTORY Medical History History ICD Code Hypertension Hypothyroidism Diabetes type 2 Gastroesophageal reflux disease (GERD) Renal cell cancer Chronic kidney disease stage 4 Sleep apnea CHF Surgical History Surgery Date(Month/Year) Right total knee arthroplasty 08/2015 Cholecystectomy Hernia repair 2019 Cardiac stent 07/2020
--- OUTSIDE RECORDS SUMMARY | 2024-11-16 18:02 | XMS_ITS | Encounter Summary ---
Author Organization [facility] Address [facility] [place] [address] Care Team Providers Care Compliance Assistant Name Role Phone Deandre Bojorquez MD Unavailable Jeff Strickland MD Primary Care Provider [phone] Encounter Details Date Type Department Care Team (Late st Contact Info) Description 04/10/2023 Lab Requisition [facility] [address] [place] [id number] Alan Dvaenport MD [facility] [place][note 2][address] 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 Gender Identity Male 07/02/2021 2:37 PM [...] Moniqeu Suárez RN * Does person have difficulty [...] Description 12/06/2024 10:40 AM CDT [facility] [address] [place] [address], [place] [address] Marbin Flores MD [address] [facility] DIV [place] [address] Niraj Turner MD [address] [place] [address] 2L [place] [address] 2025 1:00 PM COIL MACHINE SUPERVISOR Office Visit [facility] - Neurology [address] [place] [address], [place] [address] Becky Wilson MD [address] [place] [phone] documented as of this encounter Procedures Procedure Name Priority Date/Time Associated Diagnosis Comments HOLD HLA SPECIMEN Routine 04/02/2023 3:0 1 PM COIL MACHINE SUPERVISOR documented in this encounter Results * HOLD HLA SPECIMEN (04/02/2023 3:01 PM COIL MACHINE SUPERVISOR) Hold HLA Specimen 04/10/2023 4:01 PM COIL MACHINE SUPERVISOR [facility] Comment:The Hold HLA specime n has been received into the lab and will be held for 5 years at 4 degrees. Blood BLOOD SPECIMEN / Unknown 04/02/2023 3:01 PM COIL MACHINE SUPERVISOR 04/10/2023 3:01 PM COIL MACHINE SUPERVISOR Alan Davenport MD LAB - BLOOD BANK ORDERABLES F inal Result [facility] [address] documented in this encounter Visit Diagnoses Not on filedocumented in this encounter Additional Health Concerns Infection Onset Date Last Indicated Resolved Time COVID-19 Under Investigation 09/13/2024 09/13/2024 09/13/2024 6:36 AM CDT documented as of this encounter Care Teams Compliance Assistant Relationship Specialty Start Date End Date Jeff Strickland MD [address] [place] [address] PCP - General 03/05/18 [place] [address] [address] Orthopedic Surgery 03/28/17 documented as of this encounter
--- OUTSIDE RECORDS SUMMARY | 2024-11-16 18:02 | XMS_ITS | Patient Health Record ---
Author Organization [facility] [employer] [facility] Address [address] [place] [address] Care Team Providers Care Associate Director Financial Aid Name Role Phone Trenton Hernandez Unavailable [phone] Reason For Referral No Information Medications Medication [...] UNIT)-FOLIC ACID 1 MG TABLET *Reorder from EpiEP for eRx and Interaction Alerts* 02/26/2023 Active Azelastine HCl 137 MCG/SPRAY Solution Nasal 02/26/2023 Active Dilt-XR 240 MG Capsule Extended Release 24 Hour Oral 02/26/2023 Active Potassium Chloride ER 10 MEQ Tablet Extended Release Oral 02/26/2023 Active Mounjaro 2.5 MG/0.5ML Solution Pen-injector Subcutaneous *Reorder from EpiEP for eRx and Interaction Alerts* 02/26/2023 Active Methocarbamol 500 MG Tablet Oral 02/26/2023 Active Levothyroxine Sodium 112 MCG Tablet Oral 02/26/2023 Active Atorvastatin Calcium 80 MG Tablet Oral 02/26/2023 Active Gabapentin 100 MG Capsule Oral 02/26/2023 Active SODIUM BICARBONATE 1,650 MG-CITRIC ACID 1,000 MG EFFERVESCENT TABLET *Reorder from [facility] for eRx and Interaction Alerts* 02/26/2023 Active Sevelamer Carbonate 800 MG Tablet Oral 02/26/2023 Active IPRATROPIUM BROMIDE 21 MCG (0.03 %) NASAL SPRAY *Reorder from [facility] for eRx and Interaction Alerts* 02/26/2023 [...] PATCH, MEDICATED TOPICAL *Pick strength-form from [facility] for eRX* 02/26/2023 Active Amoxicillin-Pot Clavulanate 875-125 MG Tablet Oral 02/26/2023 Active Amoxicillin 500 MG Capsule Oral 02/26/2023 Active guanFACINE HCl ER 3 MG Tablet Extended Release 24 Hour Oral 02/26/2023 Active Tamsulosin HCl 0.4 MG Capsule Oral 02/26/2023 Active SEVELAMER HCL 800 MG TABLET *Reorder from [facility] for eRx and Interaction Alerts* 02/26/2023 Active LEVOTHYROXINE 112 MCG CAPSULE *Reorder from [facility] for eRx and Interaction Alerts* 02/26/2023 Active ULTRA-FINE SHORT PEN NEEDLE 31 gauge x 5/16 NEEDLE, DISPOSABLE MISCELLANEOUS *Reorder from [facility] for eRx and Interaction Alerts* 02/26/2023 Active Tylenol PM Extra Strength *Pick strength-form from [facility] for eRX* 02/26/2023 Active Mounjaro 5 MG/0.5ML Solution Pen-injector Subcutaneous *Reorder from [facility] for eRx and Interaction Alerts* 02/26/2023 [...] Date Coverage End Date A[employer] [address] [place] [phone] [id number] GRACE INTERIANO Self - patient is the insured Medical (General) History Surgical History Surgery Date(Month/Year) Removal of gallbladder (03220) Cataract surgery (42169) 02/17/2013 Sinus surgery 02/17/2021 Cardiac stent 07/18/2021
--- OUTSIDE RECORDS SUMMARY | 2024-11-16 18:02 | XMS_ITS | Encounter Summary ---
Author Organization [facility] Address [facility] [place] [address] Care Team Providers Care Tie Worker Name Role Phone Deandre Bojorquez MD Unavailable [phone] Jeff Strickland MD Primary Care Provider [phone] Encounter Details Date Type Department Care Team (Late st Contact Info) Description 10/28/2023 Lab Requisition [facility] [address] [place] [phone] Alan Davenport MD [facility] [place] [address] Social History Tobacco Use Types Packs/Day Years Used Date Smoking Tobacco: Never Smokeless Tobacco: Never Alcohol Use Standard Drinks/Week Comments Not Currently 0 (1 standard drink = 0.6 oz pur e alcohol) socially in past Sex and Gender Information Value Date Recorded Sex Assigned at Male 07/02/2021 2:37 PM CDT 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 Gender Identity Male 07/02/2021 2:37 PM [...] [facility] Visit [facility] Endocr[facility] [address] [place] [address], [place] [address] Marbin Flores MD [address] [facility] DIV [place] [address] Niraj Turner MD [address] [place] [address] [address] [place] [address] 2025 1:00 PM CODING QUALITY ANALYST [facility] [address] [place] [address], [place] [address] Becky Wilson MD [address] [place] [phone] documented as of this encounter Procedures Procedure Name Priority Date/Time Associated Diagnosis Comments HOLD HLA SPECIMEN Routine 10/22/2023 3:5 0 PM CDT documented in this encounter Results * HOLD HLA SPECIMEN (10/22/2023 3:50 PM CDT) Hold HLA Specimen 10/28/2023 5:00 PM CDT [facility] Comment:The Hold HLA specime n has been received into the lab and will be held for 5 years at 4 degrees. Blood BLOOD SPECIMEN / Unknown 10/22/2023 3:50 PM CDT 10/28/2023 3:50 PM CDT us Alan Davenport MD LAB - BLOOD BANK ORDERABLES F inal Result [facility] [address] documented in this encounter Visit Diagnoses Not on filedocumented in this encounter Additional Health Concerns Infection Onset Date Last Indicated Resolved Time COVID-19 Under Investigation 09/13/2024 09/13/2024 09/13/2024 6:36 AM CDT documented as of this encounter Care Teams Tie Worker Relationship Specialty Start Date End Date Jeff Strickland MD [address] [place] [address] PCP - General 03/05/18 [place] [address] [address] Orthopedic Surgery 03/28/17 documented as of this encounter
--- OUTSIDE RECORDS SUMMARY | 2024-11-16 18:02 | XMS_ITS | Clinical Summary ---
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 Coronary artery disease with angina pectoris, unspecified vessel or lesion type, unspecified whether [place] or transplanted heart Abnormal findings on cardiac catheterization BASIC METABOLIC PANEL (CALCIUM TOTAL) ANDIE 09/01/2024 9:57 AM CDT Coronary artery disease with angina pectoris, unspecified vessel or lesion type, unspecified whether [place] or transplanted heart Abnormal findings on cardiac [...] Routine 08/18/2024 2:33 PM CDT 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) Routine 08/18/2024 2:08 PM CDT ACT LR - POCT ([facility]) Routine 08/18/2024 1:24 PM CDT ACT LR - POCT ([facility]) Routine 08/18/2024 12:57 PM CDT ACT LR - POCT (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) HEPATITIS C ANTIBODY Routine 06/16/2024 4:15 PM CDT Pre-kidney transplant, listed ESRD (end stage renal disease) (HCC) 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, without long-term current use of insulin (HCC) Hypertension, unspecified type Oncocytoma Kidney stones SHABNAM on CPAP Coronary artery disease involving [place] coronary artery of [place] heart, unspecified whether angina present from Last 3 Months or Most Recently Relevant to Health Maintenance Results * IR Angiogram Bilateral Leg (11/12/2024 9:06 AM CDT) Anatomical Region Laterality Modality Lower Extremity X-Ray Angiograph y 11/12/2024 9:47 AM CDT Impressions 11/12/2024 3:38 PM CDT IMPRESSION: Left lower extremity angiogram with patent OUTDOOR ADVENTURE INSTRUCTOR, SFA with areas of < 50% stenosis, patent TP trunk with occlusions in the peroneal and PT shortly after origin, with single vessel runoff to the foot via the AT with occlusion in the DP in the foot. Right lower extremity angiogram with patent OUTDOOR ADVENTURE INSTRUCTOR, SFA, and TP trunk with an occluded [...] Owusu 11/12/2024 9:47 AM > Dictated by Ton Cylinder Inspector I, Elroy Holcomb MD have personally reviewed [...] monitored moderate sedation ATTENDING: Elroy Holcomb MD CLOTHESPIN MACHINE OPERATOR: Griffin Rodriguez MD; Elroy Owusu MD [...] exchanges this was upsized for a 5 Niuean sheath. A guidewire and omniflush catheter were [...] evaluation, please review the evaluation forms in EPIC. For details on monitored clinical parameters during the intra-service sedation time, please review the procedure nurse documentation in [facility]. Procedure Note Elroy Holcomb MD - [...] monitored moderate sedation ATTENDING: Elroy Holcomb MD CLOTHESPIN MACHINE OPERATOR: Griffin Rodriguez MD; Elroy Owusu MD [...] of exchanges thiswas upsized for a 5 Niuean sheath. A guidewire and omniflush catheter werethen [...] evaluation, please review the evaluation forms in [facility]. For details on monitored clinical parameters during the intra-service sedation time, please review the procedure nurse documentation in [facility]. IMPRESSION: Left lower extremity angiogram with patent OUTDOOR ADVENTURE INSTRUCTOR, SFA with areas of < 50% stenosis, patent TP trunk with occlusions in the peroneal and PT shortly after origin, with single vessel runoff to the foot via the AT with occlusion in the DP in the foot. Right lower extremity angiogram with patent OUTDOOR ADVENTURE INSTRUCTOR, SFA, and TP trunk with an occluded AT distally, andocclusion in peroneal at level of ankle, and multifocal areas of stenosis in thePT which appears occluded at the level of the ankle. Successful deploymentof 5 Fr Mynx control closure device. Total fluoroscopy time of 4.2min. Total contrast usage of 60mL > Dictated by Elroy Owusu 11/12/2024 9:47 AM > Dictated by Ton Cylinder Inspector I, Elroy Holcomb MD have personally reviewed and interpreted this examination/study. > Interpreting Provider: Elroy Holcomb MD on 11/12/2024 3:38 PM Elroy Holcomb MD IR ORDERABLES Final Resu lt * (ABNORMAL) BASIC METABOLIC PANEL (CALCIUM TOTAL) (11/12/2024 7:11 AM CDT) Only the most recent of7 resultswithin the time period is included. BUN 28(H) 7 - 26 mg/dL 11/12/2024 7:[address] [facility] Creatinine 7.33(H) 0.71 - 1.16 mg/dL 11/12/2024 7:[address] [facility] Sodium 138 136 - 145 mmol/L 11/12/2024 7:[address] [facility] Potassium 3.5 3.5 - 4.5 mmol/L 11/12/2024 7:[address] [facility] Chloride 97(L) 98 - 107 mmol/L 11/12/2024 7:[address] [facility] CO2 25 22 - 29 mmol/L 11/12/2024 7:[address] [facility] Glucose 164(H) 70 - 99 mg/dL 11/12/2024 7:[address] [facility] Calcium 7.8(L) 8.4 - 10.2 mg/dL 11/12/2024 7:[address] [facility] Anion Gap 16 6 - 16 11/12/2024 7:[address] [facility] BUN/Creatinine Ratio 4(L) 7 - 23 11/12/2024 7:[address] [facility] Osmolality Calculated 295 275 - 295 mOsm/kg 11/12/2024 7:[address] [facility] eGFR by CKD-EPI 8(L) >=90 mL/min/1.7 3 m2 11/12/2024 7:[address] [facility] Comment:Estimated Glomerular Filtration Rate (eGFR) calculated using the CKD-EPI Creatinine Equation (2020), per the National Kidney Foundation and [place] Society of Nephrology recommendations. Blood BLOOD SPECIMEN / Unknown Lab Venipuncture / Unknown 11/12/2024 7:11 AM CDT 11/12/2024 7:44 AM CDT Elroy Holcomb MD LAB - CHEMISTRY ORDERABLES Final Result Performing Organization Address City/[facility]/ZIP Co de Phone Number [address] [address], [facility] [phone] * (ABNORMAL) GLUCOSE - POINT OF CARE (11/12/2024 7:05 AM CDT) Only the most recent of56 resultswithin the time period is included. Glucose WB/POC 193(H) 70 - 99 mg/dL 11/12/2024 7:06 AM CDT [facility] Specimen Type Venous 11/12/2024 7:06 AM CDT [facility] Blood BLOOD SPECIMEN / Unknown 11/12/2024 7:05 AM CDT 11/12/2024 7:06 AM CDT Elroy Holcomb MD LAB - POINT OF CARE ORDERA BLES Final Result Performing Organization Address [facility]/ZIP Co de Phone Number [address] [address], [facility] [phone] * CARDIAC EKG ORDER (10/29/2024 4:31 PM [...] 71(H) <=35 ng/L 10/28/2024 3:13 AM CDT [facility] Delta Troponin I HS 10/28/2024 3:13 AM CDT [facility] Comment:Delta value intentio tito not calculated. Baseline to 1 hour specimen collection interval exceeded. Blood BLOOD SPECIMEN / Unknown Venipuncture / Unknown 10/28/2024 2:31 AM CDT 10/28/2024 2:37 AM CDT us Savanna Mcfarlane MD LAB - CHEMISTRY ORDERABLES Fi nal Result Performing Organization Address City/[facility]/ZIP Co de Phone Number [address] [phone], [facility] [phone] * LACTIC ACID BLOOD REFLEX TO REPEAT (10/28/2024 2:31 AM CDT) Only the most recent of5 resultswithin the time period is included. Lactic Acid-Stat 1.9 <=2.0 mmol/L 10/28/2024 3:06 AM CDT [facility] Blood BLOOD SPECIMEN / Unknown Venipuncture / Unknown 10/28/2024 2:31 AM CDT 10/28/2024 2:37 AM CDT us Savanna Mcfarlane MD LAB - CHEMISTRY ORDERABLES Fi nal Result Performing Organization Address [facility] Co de Phone Number [address] [phone], [facility] [phone] * XR Chest 2Vw (10/27/2024 11:58 PM CDT) Only the most recent of4 resultswithin the time period is included. Anatomical Region Laterality Modality Chest Digital Radiogra phy 10/28/2024 12:0 2 AM CDT Narrative 10/28/2024 3:32 AM CDT PROCEDURE: XR CHEST 2VW, DATE/TIME OF EXAM: 10/27/2024 11:58 PM, LOCATION [facility] INDICATION: R07.9: Chest pain, unspecified [...] shoulders. > Dictated by Branden Jha MD, (university relations vice president). > Dictated by Ton Cylinder Inspector I, Blake Plasencia MD have personally reviewed and interpreted this examination/study. > Interpreting Provider: Blake Plasencia MD on 10/28/2024 3:32 AM Procedure Note Blake Plasencia MD - 10/28/2024 PROCEDURE: XR CHEST 2VW, DATE/TIME OF EXAM: 10/27/2024 11:58 PM, LOCATION [facility] INDICATION: R07.9: Chest pain, unspecified [...] shoulders. > Dictated by Branden Jha MD, (university relations vice president). > Dictated by Ton Cylinder Inspector I, Blake Plasencia MD have personally reviewed and interpreted this examination/study. > Interpreting Provider: Blake Plasencia MD on 10/28/2024 3:32 AM Savanna Mcfarlane MD DIAGNOSTIC IMAGING ORDERABLES Final Result * (ABNORMAL) TROPONIN-I HIGH SENSITIVE BASELINE + 1HR (10/27/2024 11:53 PM CDT) Only the most recent of8 resultswithin the time period is included. Troponin I High Sensitive 72(H) <=35 ng/L 10/28/2024 12:49 AM CDT [facility] Blood BLOOD SPECIMEN / Unknown Venipuncture / Unknown 10/27/2024 11:53 PM CDT 10/28/2024 12:12 AM CDT Savanna Mcfarlane MD LAB - CHEMISTRY ORDERABLES Fi nal Result [facility] [address] [place] [phone], [facility] [phone] * (ABNORMAL) CBC W AUTO DIFFERENTIAL (10/27/2024 11:53 PM [facility]) Only the most recent of11 resultswithin the time period is included. WBC 7.8 4.0 - 10.7 x10E9/L 10/28/2024 12:[address] [facility] RBC Count 3.31(L) 4.30 - 5.80 x10E12/L 10/28/2024 12:[address] [facility] Hemoglobin 9.0(L) 13.3 - 17.5 g/dL 10/28/2024 12:[address] [facility] Hematocrit 27.9(L) 38.7 - 51.1 % 10/28/2024 12:[address] [facility] MCV 84.3 80.0 - 98.0 fL 10/28/2024 12:[address] [facility] MCH 27.2 26.7 - 33.6 pg 10/28/2024 12:[address] [facility] MCHC 32.3 31.7 - 36.3 g/dL 10/28/2024 12:[address] [facility] RDW-CV 15.9(H) 11.3 - 14.8 % 10/28/2024 12:[address] [facility] Platelet Count 187 150 - 420 x10E9/L 10/28/2024 12:[address] [facility] MPV 10.2 7.8 - 11.4 fL 10/28/2024 12:[address] [facility] Neutrophil % 67.0 41.0 - 74.0 % 10/28/2024 12:[address] [facility] Lymphocyte % 16.4(L) 17.0 - 47.0 % 10/28/2024 12:[address] [facility] Monocyte % 14.0(H) 3.0 - 11.0 % 10/28/2024 12:[address] [facility] Eosinophil % 1.9 0.0 - 7.0 % 10/28/2024 12:[address] [facility] Basophil % 0.1 0.0 - 1.6 % 10/28/2024 12:[address] [facility] Immature Granulocytes % 0.6 0.0 - 1.0 % 10/28/2024 12:[address] [facility] Neutrophil Absolute 5.23 1.60 - 7.50 x10E9/L 10/28/2024 12:[address] [facility] Lymphocyte Absolute 1.28 1.00 - 4.40 x10E9/L 10/28/2024 12:[address] [facility] Monocyte Absolute 1.09(H) 0.15 - 1.00 x10E9/L 10/28/2024 12:[address] [facility] Eosinophil Absolute 0.15 0.00 - 0.60 x10E9/L 10/28/2024 12:[address] [facility] Basophil Absolute 0.01 0.00 - 0.13 x10E9/L 10/28/2024 12:[address] [facility] Blood BLOOD SPECIMEN / Unknown Venipuncture / Unknown 10/27/2024 11:53 PM CDT 10/28/2024 12:13 AM CDT us Savanna Mcfarlane MD LAB - HEMATOLOGY ORDERABLES F inal Result [address] [address], [facility] [phone] * (ABNORMAL) COMPREHENSIVE METABOLIC PANEL (10/27/2024 11:53 PM CDT) Only the most recent of13 resultswithin the time period is included. BUN 34(H) 7 - 26 mg/dL 10/28/2024 12:[address] [facility] Creatinine 7.86(H) 0.71 - 1.16 mg/dL 10/28/2024 12:[address] [facility] Sodium 132(L) 136 - 145 mmol/L 10/28/2024 12:[address] [facility] Potassium 3.5 3.5 - 4.5 mmol/L 10/28/2024 12:[address] [facility] Chloride 95(L) 98 - 107 mmol/L 10/28/2024 12:[address] [facility] CO2 25 22 - 29 mmol/L 10/28/2024 12:[address] [facility] Glucose 104(H) 70 - 99 mg/dL 10/28/2024 12:[address] [facility] Calcium 8.5 8.4 - 10.2 mg/dL 10/28/2024 12:[address] [facility] Protein Total 5.6(L) 6.0 - 8.3 g/dL 10/28/2024 12:[address] [facility] Albumin 2.2(L) 3.4 - 5.0 g/dL 10/28/2024 12:[address] [facility] Bilirubin Total 0.3 0.2 - 1.2 mg/dL 10/28/2024 12:[address] [facility] Alkaline Phosphatase 104 40 - 150 U/L 10/28/2024 12:[address] [facility] ALT 56(H) 5 - 55 U/L 10/28/2024 12:[address] [facility] AST 48(H) 5 - 34 U/L 10/28/2024 12:[address] [facility] Anion Gap 12 6 - 16 10/28/2024 12:[address] [facility] BUN/Creatinine Ratio 4(L) 7 - 23 10/28/2024 12:[address] [facility] Osmolality Calculated 282 275 - 295 mOsm/kg 10/28/2024 12:[address] [facility] Albumin/Globulin Ratio 0.6(L) 1.1 - 2.3 10/28/2024 12:[address] [facility] eGFR by CKD-EPI 7(L) >=90 mL/min/1.7 3 m2 10/28/2024 12:[address] [facility] Comment:Estimated Glomerular Filtration Rate (eGFR) calculated using the CKD-EPI Creatinine Equation (2020), per the National Kidney Foundation and [place] Society of Nephrology recommendations. Blood BLOOD SPECIMEN / Unknown Venipuncture / Unknown 10/27/2024 11:53 PM T 10/28/2024 12:12 AM CDT Savanna Mcfarlane MD LAB - CHEMISTRY ORDERABLES Fi nal Result Performing Organization Address City/[facility]/ZIP Co de Phone Number [address] [address], [facility] [phone] * LIPASE BLOOD (10/27/2024 11:53 PM CDT) Only the most recent of3 resultswithin the time period is included. Lipase 41 8 - 78 U/L 10/28/2024 12:45 AM CDT [facility] Blood BLOOD SPECIMEN / Unknown Venipuncture / Unknown 10/27/2024 11:53 PM CDT 10/28/2024 12:12 AM CDT Narrative [facility] - 10/28/2024 12:45 AM CDT Lipase results from the [facility] Alinity analyzer may not be comparable with other methodologies. Savanna Mcfarlane MD LAB - CHEMISTRY ORDERABLES nal Result Performing Organization Address [facility] Co de Phone Number [address] [address], [facility] [phone] * HLA ANTIBODY SCREEN LUM CLASS 2 SAB (10/27/2024 2:40 PM CDT) % PRA 0 11/04/2024 4:03 PM CDT [facility] ([facility]) Class 2 LUM SAB Moderate Risk DQ6 11/04/2024 4:03 PM CDT [facility] ([facility]) Class 2 SAB Test Date [id number] 11/04/2024 4:03 PM CDT [facility] ([facility]) Comment: Methodology - Luminex Bead-Based Immunoassay. This test was developed and its performance characteristics determined by the [facility]. It has not been [...] high complexity clinical laboratory testing. CLIA ID# [id number] Performed at: [facility], [address] [place] [phone] General Internal Medicine Doctor: Steven Gonzalez, Ph.D., D([facility]), Blood BLOOD SPECIMEN / Unknown No Charge Blood Draw / Unknown 10/27/2024 2:40 PM CDT 11/01/2024 2:41 PM CDT Alan Davenport MD LAB - BLOOD BANK ORDERABLES F inal Result [facility] ([facility]) [address], [place] [id number] [place] [address] * HLA ANTIBODY SCREEN LUM CLASS 1 SAB (10/27/2024 2:40 PM CDT) % PRA 0 11/04/2024 4:03 PM CDT [facility] ([facility]) Class 1 SAB Test Date [id number] 11/04/2024 4:03 PM CDT [facility] ([facility]) Comment: Methodology - Luminex Bead-Based Immunoassay. This test was developed and its performance characteristics determined by the [facility]. It has not been cleared or approved [...] high complexity clinical laboratory testing. CLIA ID# [id number] Performed at: [facility], [address] [place] [phone] General Internal Medicine Doctor: Steven Gonzalez, Ph.D., D([facility]), Blood BLOOD SPECIMEN / Unknown No Charge Blood Draw / Unknown 10/27/2024 2:40 PM CDT 11/01/2024 2:41 PM CDT us Alan Davenport MD LAB - BLOOD BANK ORDERABLES F inal Result [facility] [address], [place] [address] * (ABNORMAL) PTH INTACT ([facility]) (10/21/2024 1:11 PM CDT) Only the most recent of2 resultswithin the time period is included. PTH Intact 316.8(H) 8.0 - 77.0 pg/mL 10/21/2024 1:56 PM CDT [facility] Blood BLOOD SPECIMEN / Unknown Lab Venipuncture / Unknown 10/21/2024 1:11 PM CDT 10/21/2024 1:23 PM CDT Becky Wilson MD LAB - CHEMISTRY ORDERABLES Fin al Result Performing Organization Address [facility] Co de Phone Number [address] [phone] [phone] * LAB MISC TEST (10/21/2024 1:11 PM CDT) Test Name PHOSPHO-TAU 217 PLASMA 10/25/2024 12:29 PM CDT [facility] Test Result See Scanned Report 10/25/2024 12:29 PM CDT [facility] Comment Ref Lab [place] 10/25/2024 12:29 PM CDT [facility] Blood BLOOD SPECIMEN / Unknown Lab Venipuncture / Unknown 10/21/2024 1:11 PM CDT 10/21/2024 1:15 PM CDT Becky Wilson MD LAB SEND OUT Final Result Performing Organization Address City/[facility]/ZIP Co de Phone Number [facility] [address] [place] [address] * MAGNESIUM BLOOD (10/21/2024 1:11 PM CDT) Only the most recent of14 resultswithin the time period is included. Magnesium 1.6 1.6 - 2.6 mg/dL 10/21/2024 1:49 PM CDT [facility] Blood BLOOD SPECIMEN / Unknown Lab Venipuncture / Unknown 10/21/2024 1:11 PM CDT 10/21/2024 1:20 PM CDT Becky Wilson MD LAB - CHEMISTRY ORDERABLES Fin al Result Performing Organization Address City/[facility]/ZIP Co de Phone Number [address] [address], [facility] [phone] * AMMONIA (10/21/2024 1:11 PM CDT) Ammonia 30 <=72 umol/L 10/21/2024 1:32 PM CDT [facility] Blood BLOOD SPECIMEN / Unknown Lab Venipuncture / Unknown 10/21/2024 1:11 PM CDT 10/21/2024 1:15 PM CDT Becky Wilson MD LAB - CHEMISTRY ORDERABLES Fin al Result Performing Organization Address [facility] Co de Phone Number [address] [address], [facility] [phone] * CT Head Wo Contrast (10/19/2024 3:03 PM CDT) Only the most recent of4 resultswithin the time period is included. Anatomical Region Laterality Modality Head Computed Tomogra phy 10/19/2024 3:11 PM CDT Impressions 10/19/2024 3:41 PM CDT IMPRESSION: 1.No acute intracranial hemorrhage, territorial infarct, or significant mass effect. Report dictated by Saroj Linda MD, MD (university relations vice president). > Dictated by Ton Cylinder Inspector I, Raymundo Hanson MD have personally reviewed [...] Report dictated by Saroj Linda MD, MD (university relations vice president). > Dictated by Ton Cylinder Inspector I, Raymundo Hanson MD have personally reviewed and interpreted this examination/study. > Interpreting Provider: Raymundo Hanson MD on 10/19/2024 3:41 PM [facility]- CT ORDERABLES Final Result * EKG 12-LEAD (10/19/2024 2:21 PM CDT) Only the most recent of6 resultswithin the time period is included. Pathologist [facility] Ventricular Rate 64 BPM [facility] MUSE Atrial Rate 64 BPM [facility] P-R Interval 146 ms [facility] QRS Duration ms 96 ms [facility] Q-T Interval ms 494 ms [facility] QTC Calculation (Bezet) 509 ms [facility] Calculated P [place] 69 degrees [facility] Calculated R [place] -63 degrees [facility] MUSE Calculated T [place] -90 degrees [facility] Interpretation EKG NORMAL SINUS RHYTHM LEFT ANTERIOR FASCICULAR BLOCK T WAVE ABNORMALITY, CONSIDER INFEROLATERAL ISCHEMIA PROLONGED QT ABNORMAL ECG . Confirmed by DOUG CAGLE MD ([id number]) on 10/23/2024 11:38:28 PM [facility] MUSE 10/19/2024 2:21 PM CDT 10/23/2024 11:38 PM CDT [facility]- ECG ORDERABLES Edite d Result - Final [facility] * (ABNORMAL) B-TYPE NATRIURETIC PEPTIDE (10/17/2024 7:33 PM CDT) Only the most recent of3 resultswithin the time period is included. Pathologist [facility] BNP 471(H) <100 pg/mL 10/17/2024 10:07 PM CDT [facility] Comment: A decision threshold of [...] LAB - CHEMISTRY ORDERABLES Fi nal Result [facility] [address] [place] [address], [facility] [phone] * XR CHEST 1VW PORTABLE (10/09/2024 7:27 PM CDT) Only the most recent of2 resultswithin the time period is included. Anatomical Region Laterality Modality Chest Digital Radiogra phy 10/09/2024 10:4 9 PM CDT Narrative 10/10/2024 1:17 AM CDT PROCEDURE: XR CHEST 1VW PORTABLE, DATE/TIME OF EXAM: 10/09/2024 7:27 PM, LOCATION [facility] INDICATION: R06.02: Short of breath on exertion ADDITIONAL CLINICAL INFORMATION: Ordering Provider Reason For Exam: r/o effusion, pneumonia Technologist Note: Additional: COMPARISON: Chest x-ray from 10/07/2024. FINDINGS/IMPRESSION: There is no focal consolidation, pleural effusion, or pneumothorax.The cardiomediastinal silhouette is normal. No displaced fractures identified. Hardware projecting over thoracic spine. > Dictated by Otis Bocanegra MD (university relations vice president). > Dictated by Ton Cylinder Inspector I, Blake Plasencia MD have personally reviewed and interpreted this examination/study. > Interpreting Provider: Blake Plasencia MD on 10/10/2024 1:17 AM Procedure Note Blake Plasencia MD - 10/10/2024 PROCEDURE: XR CHEST 1VW PORTABLE, DATE/TIME OF EXAM: 10/09/2024 7:27PM, LOCATION [facility] INDICATION: R06.02: Short of breath on exertion ADDITIONAL CLINICAL INFORMATION: Ordering Provider Reason For Exam: r/o effusion, pneumonia Technologist Note: Additional: COMPARISON: Chest x-ray from 10/07/2024. FINDINGS/IMPRESSION: There is no focal consolidation, pleural effusion, or pneumothorax.The cardiomediastinal silhouette is normal. No displaced fracturesidentified. Hardware projecting over thoracic spine. > Dictated by Otis Bocanegra MD (university relations vice president). > Dictated by Ton Cylinder Inspector I, Blake Plasencia MD have personally reviewed and interpreted this examination/study. > Interpreting Provider: Blake Plasencia MD on 10/10/2024 1:17 AM us Anjali Avelar IRIDOLOGIST-TURKISH RUBBER DIAGNOSTIC IMAGING O RDERABLES Final Result * (ABNORMAL) BLOOD GASES ABBEY + COOX PANEL (10/09/2024 4:39 PM CDT) Only the most recent of2 resultswithin the time period is included. pH Venous 7.41 7.32 - 7.42 pH 10/09/2024 5:[address] [facility] pO2 Venous 34(L) 35 - 40 mmHg 10/09/2024 5:[address] [facility] pCO2 Venous 44 40 - 50 mmHg 10/09/2024 5:[address] [facility] HCO3 Venous 27.9 20 - 30 mmol/L 10/09/2024 5:[address] [facility] Base Excess Venous 2.9(H) -2.0 - 2.0 mmol/L 10/09/2024 5:[address] [facility] Oxyhemoglobin Venous 56.8 % 09/18 5:[address] [facility] Comment:A^Absorbance Error Deoxyhemoglobin (HHB) Venous % 42.6 % 10/09/2024 5:[address] [facility] Comment:A^Absorbance Error Methemoglobin <0.8 0.0 - 2.0 % 10/09/2024 5:[address] [facility] Comment:A^Absorbance Error Carboxyhemoglobin 0.6 0.0 - 2.0 % 2024 5:[address] [facility] Comment:A^Absorbance Error O2 Content Venous 7.7 Interpret within clinical context ml/dL 10/09/2024 5:[address] [facility] Hemoglobin by COOX 9.6(L) 12.0 - 17.6 g/dL 10/09/2024 5:[address] [facility] Comment:A^Absorbance Error O2 Saturation Venous 57(L) >=70 % 09/18 5:[address] [facility] Comment:A^Absorbance Error FI O2 Mixed Venous 21.0 % 2024 5:[address] [facility] Blood BLOOD SPECIMEN / Unknown Venipuncture / Unknown 10/09/2024 4:39 PM CDT 10/09/2024 4:56 PM CDT Narrative [facility] - 10/09/2024 5:04 PM CDT Carboxyhemoglobin Normal Concentration: Non-smokers: 0-2%; Smokers: 0-9%; Toxic: >20% Anjali Avelar [facility] LAB - BLOOD GASES OR DERABLES Final Result Performing Organization Address City/[facility]/ZIP Co de Phone Number [address] [address], [facility] [phone] * PHOSPHORUS BLOOD (10/09/2024 4:39 PM CDT) Only the most recent of8 resultswithin the time period is included. Phosphorus 4.9 2.8 - 5.1 mg/dL 10/09/2024 5:29 PM CDT [facility] Blood BLOOD SPECIMEN / Unknown Venipuncture / Unknown 10/09/2024 4:39 PM CDT 10/09/2024 4:58 PM CDT Anjali Avelar IRIDOLOGIST-[employer]URK[employer] RUBBER LAB - CHEMISTRY ORDE RABLES Final Result [address] [place] [address], [facility] [phone] * (ABNORMAL) URINALYSIS REFLEX MICROSCOPIC REFLEX CULTURE (10/07/2024 6:16 PM CDT) Color UA Yellow Yellow, Straw 10/07/2024 6:[address] [facility] Clarity UA Ex. Turbid(A) Clear 10/07/2024 6:[address] [facility] Glucose UA Normal Normal 10/07/2024 6:[address] [facility] Bilirubin UA Negative Negative 10/07/2024 6:[address] [facility] Ketone UA Negative Negative 10/07/2024 6:[address] [facility] Specific Clute UA 1.015 1.005 - 1.030 10/07/2024 6:[address] [facility] Blood UA 3+(A) Negative 10/07/2024 6:[address] [facility] pH UA 6.0 5.0 - 8.0 10/07/2024 6:[address] [facility] Protein UA 2+(A) Negative 10/07/2024 6:[address] [facility] Urobilinogen UA Normal Normal mg/dL 10/07/2024 6:[address] [facility] Nitrite UA Negative Negative 10/07/2024 6:[address] [facility] Leukocyte Esterase UA 500 MOLLY/uL(A) Negative 10/07/2024 6:[address] [facility] RBC UA 51-100(A) 0 - 5 # /hpf 10/07/2024 6:[address] [facility] WBC UA >100(A) 0 - 5 # /hpf 10/07/2024 6:[address] [facility] Bacteria UA 2+(A) None Seen 10/07/2024 6:[address] [facility] Squamous Epithelial Cells None Seen 0 - 5 /hpf 10/07/2024 6:[address] [facility] Transitional Epithelial Cell UA 0-2(A) None Seen /HPF 10/07/2024 6:[address] [facility] Budding Yeast Moderate(A) None seen /hpf 10/07/2024 6:39 PM CDT [facility] Reflex Status Culture to follow 10/07/2024 6:39 PM CDT [facility] Urine URINE SPECIMEN OBTAINED VIA INDWELLING URINARY CATHETER / Unknown Collection / Unknown 10/07/2024 6:16 PM CDT 10/07/2024 6:19 PM CDT Narrative [facility] - 10/07/2024 6:39 PM CDT Richard Sylvester MD LAB - URINALYSIS ORDERABLES Kenna vitaly Result [facility] [address] [place] [address], [facility] [phone] * (ABNORMAL) CULTURE URINE (10/07/2024 6:16 PM CDT) Pathologist [facility] Culture Urine 50,000-100,000 CFU/mL Klebsiella pneumoniae(A) MUSHTAQ [...] MICROBIOLOGY ORDERABLES Fi nal Result [facility] [address] [place] [address], [facility] [phone] * VAS Arterial Multilevel Le (10/05/2024 12:24 PM CDT) Anatomical Region Laterality Modality Intravascular Ul trasound 10/05/2024 11:3 4 AM CDT Narrative Procedure Note Elroy Holcomb MD - 10/05/2024 Guy Messina MD VASCULAR LAB ORDERABLES Edit ed Result - Final * (ABNORMAL) HEMOGLOBIN A1C (09/25/2024 5:06 AM CDT) Hemoglobin A1c 5.8(H) <=5.6 % 09/25/2024 8:19 AM CDT [facility] Estimated Average Glucose 120 mg/dL 09/25/2024 8:19 AM CDT [facility] Comment: HbA1c Interpretation: Normal : < 5.7% Pre-diabetes: 5.7-6.4% Diabetes: Equal to or greater than 6.5% Test results diagnostic of diabetes should be repeated for confirmation. Treatment target values recommended by ADA and other clinical organizations should be used to evaluate metabolic control in patients. Reference: [place] Diabetes Association, Standards of Care in Diabetes -2020 In patients 70 years and older consider HbA1c target range of 7.0-7.5% (Reference: Lombardo A, et eloy. GREGORYDA. 2012) The Sebia assay for the measurement of HbA1c is a National Glycohemoglobin Standardization Program (NGSP) certified method. Blood BLOOD SPECIMEN / Unknown Lab Venipuncture / Unknown 09/25/2024 5:06 AM CDT 09/25/2024 5:37 AM CDT us Jennifer Winn MD LAB - CHEMISTRY ORDERABLES F inal Result [facility] [address] [place] [address], [facility] [phone] * (ABNORMAL) RENAL FUNCTION PANEL (09/24/2024 7:53 PM CDT) Only the most recent of3 resultswithin the time period is included. BUN 42(H) 7 - 26 mg/dL 09/24/2024 8:[address] [facility] Creatinine 12.22(H) 0.71 - 1.16 mg/dL 09/24/2024 8:[address] [facility] Sodium 136 136 - 145 mmol/L 09/24/2024 8:[address] [facility] Potassium 3.9 3.5 - 4.5 mmol/L 09/24/2024 8:[address] [facility] Chloride 97(L) 98 - 107 mmol/L 09/24/2024 8:[address] [facility] CO2 24 22 - 29 mmol/L 09/24/2024 8:[address] [facility] Glucose 93 70 - 99 mg/dL 09/24/2024 8:[address] [facility] Albumin 1.8(L) 3.4 - 5.0 g/dL 09/24/2024 8:[address] [facility] Calcium 8.4 8.4 - 10.2 mg/dL 09/24/2024 8:[address] [facility] Phosphorus 7.0(H) 2.8 - 5.1 mg/dL 09/24/2024 8:[address] [facility] Anion Gap 15 6 - 16 09/24/2024 8:47 PM CDT [facility] BUN/Creatinine Ratio 3(L) 7 - 23 09/24/2024 8:47 PM CDT [facility] Osmolality Calculated 292 275 - 295 mOsm/kg 09/24/2024 8:47 PM CDT [facility] eGFR by CKD-EPI 4(L) >=90 mL/min/1.7 3 m2 09/24/2024 8:47 PM CDT [facility] Comment:Estimated Glomerular Filtration Rate (eGFR) calculated using the CKD-EPI Creatinine Equation (2020), per the National Kidney Foundation and [place] Society of Nephrology recommendations. Blood BLOOD SPECIMEN / Unknown Lab Venipuncture / Unknown 09/24/2024 7:53 PM CDT 09/24/2024 8:15 PM CDT us Guy Messina MD LAB - CHEMISTRY ORDERABLES F inal Result Performing Organization Address City/[facility]/ZIP Co de Phone Number [address] [address], [place] [phone] * TSH REFLEX FREE T4 (09/24/2024 12:02 PM CDT) Pathologist [facility] TSH 1.567 0.350 - 4.940 uIU/mL 09/24/2024 12:57 PM CDT [facility] Blood BLOOD SPECIMEN / Unknown 09/24/2024 12:02 PM CDT 09/24/2024 12:18 PM CDT us Alexis Rodrigez III, MD LAB - CHEMISTRY ORDERAB LES Final Result [address] [address], [place] [phone] * (ABNORMAL) VITAMIN B1 (09/24/2024 12:02 PM CDT) Vitamin B1 Whole Blood 205(H) 70 - 180 nmol/L 09/27/2024 7:16 PM CDT [employer] ([facility] Comment: INTERPRETIVE INFORMATION: Vitamin B1, Whole Blood This assay measures the concentration of thiamine diphosphate (TDP), the primary active form of vitamin B1. Approximately 90 percent of vitamin B1 present in whole blood is TDP. Thiamine and thiamine monophosphate, which comprise the remaining 10 percent, are not measured. This test was developed and its performance characteristics determined by [facility] [employer]. It has not been cleared or approved by the [place] Food and Drug Administration. This test was performed in a CLIA certified laboratory and is intended for clinical purposes. Performed By: [place] [address] [employer] Department Supervisor: Mk Egan MD, PhD CLIA Number: [id number] Blood BLOOD SPECIMEN / Unknown 09/24/2024 12:02 PM CDT 09/24/2024 12:11 PM CDT Alexis Rodrigez III, MD LAB - CHEMISTRY ORDERAB LES Final Result Performing Organization Address City/[facility]/ZIP Co de Phone Number [facility]) [address] [place] [address] * (ABNORMAL) VITAMIN B12 (09/24/2024 12:02 PM CDT) Pathologist [facility] Vitamin B12 1,151(H) 213 - 816 pg/mL 09/24/2024 12:57 PM CDT [facility] Blood BLOOD SPECIMEN / Unknown 09/24/2024 12:02 PM CDT 09/24/2024 12:18 PM CDT Alexis Rodrigez III, MD LAB - CHEMISTRY ORDERAB LES Final Result [address] [address], [facility] [phone] * (ABNORMAL) TROPONIN-I HIGH SENSITIVE (09/24/2024 5:08 AM CDT) Pathologist [facility] Troponin I High Sensitive 83(H) <=35 ng/L 09/24/2024 6:10 AM CDT [facility] Blood BLOOD SPECIMEN / Unknown Lab Venipuncture / Unknown 09/24/2024 5:08 AM CDT 09/24/2024 5:28 AM CDT us Jennifer Winn MD LAB - CHEMISTRY ORDERABLES F inal Result [facility] [address] [place] [address], [facility] [phone] * CT Lumbar Spine Wo Contrast (09/23/2024 [...] pelvis. Report dictated by Branden Jha MD (university relations vice president) 09/23/2024 5:45 PM. > Dictated by Ton Cylinder Inspector I, Jana Clark MD have personally reviewed and interpreted this examination/study. > Interpreting Provider: Jana Clark MD on 09/23/2024 6:29 PM Narrative 09/23/2024 6:29 PM CDT PROCEDURE: CT HEAD WO CONTRAST, CT LUMBAR SPINE WO CONTRAST, CT THORACIC SPINE WO CONTRAST, CT CERVICAL SPINE WO CONTRAST, DATE/TIME OF EXAM: 09/23/2024 5:32 PM, LOCATION [facility] INDICATION: W19.XXXA: Fall, initial encounter R41.82: Altered mental status, unspecified altered mental status type ADDITIONAL CLINICAL INFORMATION: Ordering Provider Reason For Exam: r/o bleed, fx (accession [id number]), r/o fx (accession [id number]), r/o fx (accession [id number]), r/o fx (accession [id number]) Technologist Note: None. Additional: 69 year old [...] OF EXAM: 09/23/2024 5:32 PM, LOCATION [facility] INDICATION: W19.XXXA: Fall, initial encounter R41.82: Altered mental status, unspecified altered mental status type ADDITIONAL CLINICAL INFORMATION: Ordering Provider Reason For Exam: r/o bleed, fx (accession [id number]), r/o fx (accession [id number]), r/o fx (accession [id number]), r/o fx (accession [id number]) Technologist Note: None. Additional: 69 year old [...] pelvis. Report dictated by Branden Jha MD (university relations vice president) 09/23/2024 5:45 PM. > Dictated by Ton Cylinder Inspector I, Jana Clark MD have personally reviewed [...] pelvis. Report dictated by Branden Jha MD (university relations vice president) 09/23/2024 5:45 PM. > Dictated by Ton Cylinder Inspector I, Jana Clark MD have personally reviewed and interpreted this examination/study. > Interpreting Provider: Jana Clark MD on 09/23/2024 6:29 PM Narrative 09/23/2024 6:29 PM CDT PROCEDURE: CT HEAD WO CONTRAST, CT LUMBAR SPINE WO CONTRAST, CT THORACIC SPINE WO CONTRAST, CT CERVICAL SPINE WO CONTRAST, DATE/TIME OF EXAM: 09/23/2024 5:32 PM, LOCATION [facility] INDICATION: W19.XXXA: Fall, initial encounter R41.82: Altered mental status, unspecified altered mental status type ADDITIONAL CLINICAL INFORMATION: Ordering Provider Reason For Exam: r/o bleed, fx (accession [id number]), r/o fx (accession [id number]), r/o fx (accession [id number]), r/o fx (accession [id number]) Technologist Note: None. Additional: 69 year old [...] OF EXAM: 09/23/2024 5:32 PM, LOCATION [facility] INDICATION: W19.XXXA: Fall, initial encounter R41.82: Altered mental status, unspecified altered mental status type ADDITIONAL CLINICAL INFORMATION: Ordering Provider Reason For Exam: r/o bleed, fx (accession [id number]), r/o fx (accession [id number]), r/o fx (accession [id number]), r/o fx (accession [id number]) Technologist Note: None. Additional: 69 year old [...] pelvis. Report dictated by Branden Jha MD (university relations vice president) 09/23/2024 5:45 PM. > Dictated by Ton Cylinder Inspector I, Jana Clark MD have personally reviewed [...] pelvis. Report dictated by Branden Jha MD (university relations vice president) 09/23/2024 5:45 PM. > Dictated by Ton Cylinder Inspector I, Jana Clark MD have personally reviewed and interpreted this examination/study. > Interpreting Provider: Jana Clark MD on 09/23/2024 6:29 PM Narrative 09/23/2024 6:29 PM CDT PROCEDURE: CT HEAD WO CONTRAST, CT LUMBAR SPINE WO CONTRAST, CT THORACIC SPINE WO CONTRAST, CT CERVICAL SPINE WO CONTRAST, DATE/TIME OF EXAM: 09/23/2024 5:32 PM, LOCATION [facility] INDICATION: W19.XXXA: Fall, initial encounter R41.82: Altered mental status, unspecified altered mental status type ADDITIONAL CLINICAL INFORMATION: Ordering Provider Reason For Exam: r/o bleed, fx (accession [id number]), r/o fx (accession [id number]), r/o fx (accession [id number]), r/o fx (accession [id number]) Technologist Note: None. Additional: 69 year old [...] OF EXAM: 09/23/2024 5:32 PM, LOCATION [facility] INDICATION: W19.XXXA: Fall, initial encounter R41.82: Altered mental status, unspecified altered mental status type ADDITIONAL CLINICAL INFORMATION: Ordering Provider Reason For Exam: r/o bleed, fx (accession [id number]), r/o fx (accession [id number]), r/o fx (accession [id number]), r/o fx (accession [id number]) Technologist Note: None. Additional: 69 year old [...] pelvis. Report dictated by Branden Jha MD (university relations vice president) 09/23/2024 5:45 PM. > Dictated by Ton Cylinder Inspector I, Jana Clark MD have personally reviewed [...] erosion. Report dictated by Branden Jha MD, (university relations vice president). > Dictated by Ton Cylinder Inspector I, Nicole Bernabe MD have personally reviewed and interpreted this examination/study. > Interpreting Provider: Nicole Bernabe MD on 09/24/2024 9:17 AM Narrative 09/24/2024 9:17 AM CDT PROCEDURE: XR FOOT LEFT 3VW OR MORE, DATE/TIME OF EXAM: 09/23/2024 5:34 PM, LOCATION [facility] INDICATION: W19.XXXA: Fall, initial encounter [...] DATE/TIME OF EXAM: 09/23/2024 5:34PM, LOCATION [facility] INDICATION: W19.XXXA: Fall, initial encounter [...] erosion. Report dictated by Branden Jha MD, (university relations vice president). > Dictated by Ton Cylinder Inspector I, Nicole Bernabe MD have personally reviewed and interpreted this examination/study. > Interpreting Provider: Nicole Bernabe MD on 09/24/2024 9:17 AM Moon Lewis PA-C DIAGNOSTIC IMAGING ORDERABLES F inal Result * (ABNORMAL) C-REACTIVE PROTEIN (09/23/2024 4:52 PM CDT) Only the most recent of2 resultswithin the time period is included. C-Reactive Protein 1.6(H) <=0.5 mg/dL 09/23/2024 5:42 PM CDT [facility] Blood BLOOD SPECIMEN / Unknown Venipuncture / Unknown 09/23/2024 4:52 PM CDT 09/23/2024 4:56 PM CDT Moon Lewis PA-C LAB - CHEMISTRY ORDERABLES Kenna l Result [address] [address], [facility] [phone] * (ABNORMAL) ERYTHROCYTE SEDIMENTATION RATE (09/23/2024 4:52 PM CDT) Only the most recent of2 resultswithin the time period is included. Erythrocyte Sedimentation Rate Westergren 116(H) 0 - 20 MM/HR 09/23/2024 5:21 PM CDT [facility] Blood BLOOD SPECIMEN / Unknown Venipuncture / Unknown 09/23/2024 4:52 PM CDT 09/23/2024 5:05 PM CDT Moon Lewis PA-C LAB - HEMATOLOGY ORDERABLES Fin al Result [address] [address], [place] [phone] * (ABNORMAL) DIFFERENTIAL MANUAL (09/23/2024 4:52 PM CDT) Only the most recent of3 resultswithin the time period is included. Neutrophil % 78(H) 41 - 74 % 09/23/2024 5:33 PM CDT [facility] Lymphocyte % 10(L) 17 - 47 % 09/23/2024 5:33 PM CDT [facility] Monocyte % 10 3 - 11 % 09/23/2024 5:[address] [facility] Eosinophil % 1 0 - 7 % 09/23/2024 5:[address] [facility] Metamyelocyte % 1(H) 0% % 5:[address] [facility] Neutrophil Absolute 8.66(H) 1.60 - 7.50 x10E9/L 09/23/2024 5:[address] [facility] Lymphocyte Absolute 1.11 1.00 - 4.40 x10E9/L 09/23/2024 5:[address] [facility] Monocyte Absolute 1.11(H) 0.15 - 1.00 x10E9/L 09/23/2024 5:[address] [facility] Eosinophil Absolute 0.11 0.00 - 0.60 x10E9/L 09/23/2024 5:[address] [facility] RBC Morphology REVIEWED 09/23/2024 5:[address] [facility] Microcytosis MODERATE(A) (none) 09/23/2024 5:[address] [facility] Blood BLOOD SPECIMEN / Unknown Venipuncture / Unknown 09/23/2024 4:52 PM CDT 09/23/2024 5:05 PM CDT us Moon Lewis PA-C LAB - HEMATOLOGY ORDERABLES Fin al Result [facility] [address] [place] [address], [facility] [phone] * (ABNORMAL) CBC W/O DIFFERENTIAL (09/16/2024 1:01 AM CDT) Only the most recent of10 resultswithin the time period is included. Pathologist [facility] WBC 9.3 4.0 - 10.7 x10E9/L 09/16/2024 1:[address] [facility] RBC Count 3.37(L) 4.30 - 5.80 x10E12/L 09/16/2024 1:[address] [facility] Hemoglobin 9.5(L) 13.3 - 17.5 g/dL 09/16/2024 1:[address] [facility] Hematocrit 28.3(L) 38.7 - 51.1 % 09/16/2024 1:[address] [facility] MCV 84.0 80.0 - 98.0 fL 09/16/2024 1:[address] [facility] MCH 28.2 26.7 - 33.6 pg 09/16/2024 1:[address] [facility] MCHC 33.6 31.7 - 36.3 g/dL 09/16/2024 1:[address] [facility] RDW-CV 15.7(H) 11.3 - 14.8 % 09/16/2024 1:[address] [facility] Platelet Count 205 150 - 420 x10E9/L 09/16/2024 1:[address] [facility] MPV 10.3 7.8 - 11.4 fL 09/16/2024 1:[address] [facility] Blood BLOOD SPECIMEN / Unknown Lab Venipuncture / Unknown 09/16/2024 1:01 AM CDT 09/16/2024 1:40 AM CDT us Alexis Rodrigez III, MD LAB - HEMATOLOGY ORDERA BLES Final Result [address] [address], [facility] [phone] * VANCOMYCIN LEVEL RANDOM (09/15/2024 4:10 PM CDT) Only the most recent of3 resultswithin the time period is included. Vancomycin Random 31.2 Therapeutic Ranges not established for random specimens ug/mL 09/15/2024 6:00 PM T [facility] Blood BLOOD SPECIMEN / Unknown Lab Venipuncture / Unknown 09/15/2024 4:10 PM CDT 09/15/2024 4:51 PM CDT Narrative [facility] - 09/15/2024 6:00 PM CDT See institution protocol. us Aureliano Pierce MD LAB - CHEMISTRY ORDERAB LES Final Result [address] [address], [place] [phone] * LACTIC ACID BLOOD (09/14/2024 3:32 PM CDT) Only the most recent of4 resultswithin the time period is included. Pathologist [facility] Lactic Acid-Stat 2.0 <=2.0 mmol/L 09/14/2024 4:17 PM CDT [facility] Blood BLOOD SPECIMEN / Unknown Lab Venipuncture / Unknown 09/14/2024 3:32 PM CDT 09/14/2024 3:51 PM CDT us Alexis Rodrigez III, MD LAB - CHEMISTRY ORDERAB LES Final Result Performing Organization Address [facility]/ZIP Co de Phone Number [address] [address], [place] [phone] * (ABNORMAL) HGB HCT PANEL (09/14/2024 1:24 PM CDT) Only the most recent of2 resultswithin the time period is included. [facility] Hemoglobin 8.7(L) 13.3 - 17.5 g/dL 09/14/2024 1:41 PM CDT [facility] Hematocrit 25.6(L) 38.7 - 51.1 % 09/14/2024 1:41 PM CDT [facility] Blood BLOOD SPECIMEN / Unknown Venipuncture / Unknown 09/14/2024 1:24 PM CDT 09/14/2024 1:30 PM CDT us Alexis Rodrigez III, MD LAB - HEMATOLOGY ORDERA BLES Final Result Performing Organization Address City/[facility]/ZIP Co de Phone Number [address] [address], [place] [phone] * PATHOLOGY TISSUE (09/14/2024 11:45 AM CDT) Case Report Surgical Pathology Report Case: [id number] Authorizing Provider: Elroy Holcomb MD Collected: 09/14/2024 11:45 AM Ordering Location: [facility] Received: 09/14/2024 12:47 PM Pathologist: Charmaine Myrick MD Specimen: Toe, Left, Left Great Toe 09/16/2024 11:40 AM CDT [facility] Final Diagnosis Toe, left great, amputation (A): - Skin ulceration and necrosis - Acute osteomyelitis - Bone margin negative for acute inflammation - Skin and soft tissue margin appears viable 09/16/2024 11:40 AM CDT [facility] at 1140 CDT Microscopic Description and Comment Microscopic examination substantiates the diagnosis. 09/16/2024 11:40 AM CDT [facility] Clinical History The patient is a 69-year-old man with first toe dry gangrene and history of PAD. 09/16/2024 11:40 AM CDT [facility] Gross Description The requisition and [...] hemorrhage. There are no additional gross lesions. Medication Reconciliation Technician sections are submitted as follows: A1-skin and soft tissue to resection margin, medial and dorsal surfaces A2-bony resection margin, decalcified A3-partial proximal cross-section with surrounding mummification, decalcified IKD 09/16/2024 11:40 AM CDT [facility] Pathologist Location at [facility] 09/16/2024 11:40 AM CDT [facility] Disclaimer The performance characteristics of all immunohistochemical and indirect immunofluorescence stains (if any) cited in this report were determined by the Histopathology Laboratory of [facility]. Some of these tests were [...] pathologist. 09/16/2024 11:40 AM CDT [facility] Embedded Images 09/16/2024 11:40 AM CDT [facility] Amputation, Traumatic (Gross Only) (Toe, Left) 09/14/2024 11:45 AM CDT 09/14/2024 12:47 PM CDT Comment:Pre-op diagnosis: Toe gangrene (HCC) [I96] us Elroy Holcomb MD LAB - PATHOLOGY/CYTOLOGY O RDERABLES Final Result [facility] [address] [place] [address], [facility] [phone] * Peripheral Nerve Block (09/14/2024 10:38 AM [...] fungus isolated MUSHTAQ 10/11/2024 8:05 AM CDT [facility] Fungus Stain No yeast or hyphae seen 10/11/2024 8:05 AM CDT [facility] Microbiology PERITONEAL DIALYSATE SPECIMEN / Unknown Collection / Unknown 09/13/2024 8:08 PM CDT 09/13/2024 8:10 PM CDT Alexis Rodrigez III, MD LAB - MICROBIOLOGY PK ZENG Final Result [facility] [address] [place] [address], [facility] [phone] * DIFFERENTIAL MANUAL FLUID (09/13/2024 8:08 PM CDT) Fluid Source Peritoneal 09/13/2024 9:03 PM CDT [facility] Body Fluid Total Cell Count 100 x10E6/L 09/13/2024 9:03 PM CDT [facility] Neutrophils Fluid Percent 11 % 09/13/2024 9:03 PM CDT [facility] Lymphocytes Fluid Percent 6 % 09/13/2024 9:03 PM CDT [facility] Macrophages Fluid Percent 79 % 09/13/2024 9:03 PM CDT [facility] Mesothelial Cells Fluid Percent 4 % 09/13/2024 9:03 PM CDT [facility] Fluid PERITONEAL FLUID / Unknown Collection / Unknown 09/13/2024 8:08 PM CDT 09/13/2024 8:10 PM CDT Narrative [facility] - 09/13/2024 9:03 PM CDT No reference ranges established for body fluid differential cell counts. The test results must be integrated into the clinical context for interpretation. us Alexis Rodrigez III, MD LAB - BODY FLUID ORDERA BLES Final Result Performing Organization Address City/[facility]/ZIP Co de Phone Number [facility] [address] [place] [address], [place] [phone] * CULTURE FLUID+GRAM STAIN (09/13/2024 8:08 PM [...] LAB - MICROBIOLOGY ORDE RABLES Final Result [facility] [address] [place] [address], [facility] [phone] * CULTURE ANAEROBE (09/13/2024 8:08 PM CDT) Culture No anaerobic organisms isolated MUSHTAQ 09/19/2024 8:26 AM CDT [facility] Microbiology PERITONEAL DIALYSATE SPECIMEN / Unknown Collection / Unknown 09/13/2024 8:08 PM CDT 09/13/2024 8:11 PM CDT Alexis Rodrigez III, MD LAB - MICROBIOLOGY ORDLien ZENG Final Result Performing Organization Address City/[facility]/ZIP Co de Phone Number [facility] [address] [place] [address], [facility] [phone] * CELL COUNT W DIFFERENTIAL FLUID (09/13/2024 8:08 PM CDT) Fluid Source Peritoneal 09/13/2024 9:03 PM CDT [facility] Fluid Appearance CLEAR 09/13/2024 9:03 PM CDT [facility] Fluid Color YELLOW 09/13/2024 9:03 PM CDT [facility] Total Nucleated Cells Fluid 279 Reference Range Not Established x10E6/L 09/13/2024 9:03 PM CDT [facility] RBC Count Fluid <2,000 Reference Range Not Established x10E6/L 09/13/2024 9:03 PM CDT [facility] Fluid PERITONEAL FLUID / Unknown Collection / Unknown 09/13/2024 8:08 PM CDT 09/13/2024 8:10 PM CDT Narrative [facility] - 09/13/2024 9:03 PM CDT No reference ranges established for body fluid cell counts. Any reference ranges provided are derived from published literature. The test results must be integrated into the clinical context for interpretation. Alexis Rodrigez III, MD LAB - BODY FLUID ORDERA BLES Final Result [facility] [address] [place] [address], [place] [phone] * VAS Bilateral Venous Duplex Le (09/13/2024 4:34 PM CDT) Anatomical Region Laterality Modality Lower Extremity Ultrasound 09/13/2024 4:18 PM CDT Narrative Procedure Note Lalit Castanon MD - 09/13/2024 Alexis Rodrigez III, MD VASCULAR LAB ORDERABLES Edited Result - Final * SARS-COV-2 (COVID-19) RAPID (09/13/2024 6:02 AM CDT) COVID-19 PCR Not detected Not detected 09/14/19 6:36 AM CDT [facility] Microbiology SPECIMEN FROM NASOPHARYNGEAL STRUCTURE / Unknown Collection / Unknown 09/13/2024 6:02 AM CDT 09/13/2024 6:04 AM CDT Narrative [facility] - 09/13/2024 6:36 AM CDT The [...] LAB - MICROBIOLOGY ORDERABLE S Final Result [address] [address], [facility] [phone] * TRANSFUSE RED BLOOD CELL LEUKOREDUCED UNIT(S) [...] > Dictated by Sera Chowdhury Dr, MD (university relations vice president). Terry Leigh MD have personally reviewed and interpreted this examination/study. > Interpreting Provider: Terry Ramos MD on 09/13/2024 9:42 AM Narrative 09/13/2024 9:42 AM CDT PROCEDURE: CT ANGIO AORTA FOR DISSECTION, DATE/TIME OF EXAM: 09/13/2024 12:28 AM, LOCATION [facility] INDICATION: R10.9: Abdominal pain, unspecified [...] OF EXAM: 09/13/2024 12:28 AM, LOCATION [facility] INDICATION: R10.9: Abdominal pain, unspecified [...] > Dictated by Sera Chowdhury Dr, MD (university relations vice president). I, Terry Ramos MD have personally reviewed and interpreted this examination/study. > Interpreting Provider: Terry Ramos MD on 09/13/2024 9:42 AM Yuriy Lopez MD CT ORDERABLES Final Result * PREPARE (CROSSMATCH) RBC UNIT(S), 1 Units (09/12/2024 11:30 PM CDT) Unit Description AS1 LR PRBC [facility] Unit ABO O [facility] Unit Rh NEG [facility] Product Number R43 [facility] Unit Donor # [id number] [facility] Unit Status transfused [facility] Product [facility] [id number] [facility] Blood Type Barcode 9500 [facility] Expiration Date [id number] S B[facility]OD BANK LAB Blood Bank BLOOD SPECIMEN / Unknown 09/12/2024 11:30 PM CDT 09/12/2024 11:37 PM CDT uYriy Lopez MD LAB - BLOOD BANK ORDERABLES Final Result Performing Organization Address [facility] Co de Phone Number [facility] [address] [place] [address], [place] [phone] * TYPE + SCREEN PANEL (09/12/2024 11:30 PM CDT) Antibody Screen NEG 12:16 AM CDT [facility] ABO Rh O NEG 09/13/2024 12:16 AM CDT [facility] Blood Bank BLOOD SPECIMEN / Unknown Venipuncture / Unknown 09/12/2024 11:30 PM CDT 09/12/2024 11:37 PM CDT Yuriy Lopez MD LAB - BLOOD BANK ORDERABLES Final Result Performing Organization Address [facility] Co de Phone Number [facility] [address] [place] [address], [place] [phone] * CULTURE BLOOD (09/12/2024 10:00 PM CDT) Only the most recent of4 resultswithin the time period is included. Culture No growth day 5 MUSHTAQ 09/18/2024 1:30 AM CDT [facility] Blood PERIPHERAL BLOOD / Unknown Venipuncture / Unknown 09/12/2024 10:00 PM CDT 09/12/2024 10:21 PM CDT Yuriy Lopez MD LAB - MICROBIOLOGY ORDERABLE S Final Result Performing Organization Address [facility] Co de Phone Number [facility] [address] [place] [address], [facility] [phone] * VAS Bilateral Venous Mapping (09/07/2024 2:24 [...] thickening. Report dictated by Freddie Durham MD, (Ton Cylinder Inspector). I, Junior Hurley MD have personally reviewed [...] thickening. Report dictated by Freddie Durham MD, (Ton Cylinder Inspector). I, Junior Hurley MD have personally reviewed and interpreted this examination/study. > Interpreting Provider: Junior Hurley MD on 56:26 AM Charmaine Khalil MD CT ORDERABLES Final Result * (ABNORMAL) POTASSIUM WHOLE BLD (09/01/2024 3:54 PM CDT) Potassium Whole Blood 3.1(L) 3.5 - 5.5 mmol/L 09/01/2024 4:05 PM CDT [facility] Blood WHOLE BLOOD SPECIMEN / Unknown Venipuncture / Unknown 09/01/2024 3:54 PM CDT 09/01/2024 3:57 PM CDT Jaqueline Crews IRIDOLOGIST-TURKISH RUBBER LAB - CHEMISTRY ORDERABL ES Final Result [facility] [address] [place] [address], [facility] [phone] * CCL STAGED PERC CORONARY INTERVENTION, CCL [...] DAPT Cardiology clinic f/u us Jaqueline Crews IRIDOLOGIST-TURKISH RUBBER CV CARDIAC CATH CUPID [facility] Final Result * (ABNORMAL) IRON + TRANSFERRIN PANEL (08/19/2024 1:41 AM CDT) Iron 40(L) 50 - 175 ug/dL 08/19/2024 2:17 AM CDT [facility] Transferrin 116(L) 174 - 382 mg/dL 08/19/2024 2:17 AM CDT [facility] Transferrin Saturation % 28 16 - 50 % 08/19/2024 2:17 AM CDT [facility] TIBC Calculated 145(L) 240 - 450 ug/dL 08/19/2024 2:17 AM CDT [facility] Blood BLOOD SPECIMEN / Unknown Lab Venipuncture / Unknown 08/19/2024 1:41 AM CDT 08/19/2024 2:01 AM CDT Hannah Goodman MD LAB - CHEMISTRY ORDERABLES F inal Result Performing Organization Address City/[facility]/ZIP Co de Phone Number [address] [address], [facility] [phone] * (ABNORMAL) FERRITIN (08/19/2024 1:41 AM CDT) Ferritin 560(H) 22 - 275 ng/mL 08/19/2024 2:35 AM CDT [facility] Blood BLOOD SPECIMEN / Unknown Lab Venipuncture / Unknown 08/19/2024 1:41 AM CDT 08/19/2024 2:01 AM CDT Hannah Goodman MD LAB - CHEMISTRY ORDERABLES F inal Result [address] [address], [place] [phone] * VITAMIN D 25-HYDROXY (08/19/2024 1:23 AM CDT) Vitamin D, 25 Hydroxy 36.2 30.0 - 80.0 ng/mL 08/19/2024 2:24 AM CDT [facility] Comment: The recommendations for 25-Hydroxy Vitamin [...] LAB - CHEMISTRY ORDERABLES F inal Result [place] [address] [place] [address], [facility] [phone] * CCL PERIPHERAL ANGIOGRAM (08/18/2024 2:33 PM CDT) Anatomical Region Laterality Modality X-Ray Angiograph y Narrative 08/19/2024 2:24 PM CDT Left leg angiogram showed left AT severe diffuse disease with multiple subtotal occlusion and left PT severe diffuse disease with FIELD EDUCATION DIRECTOR of distal PT without clear reconstitution. Successful [...] 0.018 CXI microcatheter with multiple wires(Command 18/command 14/Cloth Drier 200) to get to great toe branch of dorsalis pedis using executive pilot [address]. - the AT-DP lesion was dilated with balloons mentioned in figure. - We turn our attention to PT. We crossed the PT FIELD EDUCATION DIRECTOR with 0.018 CXI microcatheter with multiple wires (command 18, command 14, Cloth Drier 200) and able to go to lateral [...] using angiography. Left Posterior Tibial: Ost L MATHEMATICAL SCIENTIST to Dist L MATHEMATICAL SCIENTIST lesion is 100% stenosed. Stenosis was measured using angiography. Intervention Ost L ROSETTA to Dist L ROSETTA lesion: Angioplasty: Angioplasty independent of stent deployment was performed using a standard balloon. The balloon used was Cath Qonfn Emrg Mr Wh 1.5Mm 144Cm 15Mm 2. [...] 10% residual stenosis post intervention. Ost L MATHEMATICAL SCIENTIST to Dist L MATHEMATICAL SCIENTIST lesion: Angioplasty: Angioplasty independent of stent deployment [...] of Plavix. -recommend close follow up with body and fender mechanic apprentice and follow up with me in clinic with JOSIANE/TBI. Hannah Goodman MD CV INVASIVE VASCULAR AND IR CUPID PROC Final Result * ACT LR - POCT ([facility]) (08/18/2024 2:08 PM CDT) Only the most recent of4 resultswithin the time period is included. [facility] ACT LR 231 See result comments sec 08/19/2024 9:02 AM CDT [facility] Blood BLOOD SPECIMEN / Unknown 08/18/2024 2:08 PM CDT 08/19/2024 9:02 AM CDT Narrative [facility] - 08/19/2024 9:02 AM CDT ACT-LR Therapeutics ranges are: Cardiac animal laboratory helper = 200-300 seconds Sheath pull = ACT [...] COAGULATION ORDERABLES Final Result Performing Organization Address [facility] Co de Phone Number [facility] [address] [place] [address], [place] [phone] * HEPATITIS C ANTIBODY (06/16/2024 4:15 PM CDT) Hepatitis C Antibody Non-react sylvie Non-reac tive 06/16/2024 5:50 PM CDT [facility] Comment:Hepatitis C Antibody screen [...] ORDERABLES Fi nal Result Performing Organization Address City/[facility]/ZIP Co de Phone Number [facility] [address] [place] [address], [place] [phone] from Last 3 Months or Most Recently Relevant to Health Maintenance Insurance [employer] MEDICARE ADV * Guarantor: GRACE INTERIANO Account Type Relation to Patient Date of Phone Billing Address Personal/Family [address] [place] [address] * Guarantor: GRACE INTERIANO Account Type Relation to Patient Date of Phone Billing Address Personal/Family [address] [place] [address] Advance Directives * Full Code (Latest Code [...] 3:16 PM 08/19/2024 4:36 PM Care Teams Aquatic Scientist Relationship Specialty Start Date End Date Jeff Strickland MD [address] [place] [address] PCP - General 03/05/18 [place] [address] [place] [address] Orthopedic Surgery 03/28/17
--- OUTSIDE RECORDS SUMMARY | 2024-11-16 18:02 | XMS_ITS | Encounter Summary ---
Author Organization [facility] Healthcare Address [address] [place] [address] Care Team Providers Care Armoring Machine Operator Name Role Phone Jeff Strickland MD Primary Care Provider Chan Nicholas MD Unavailable [phone] Alan Mccall MD Unavailable [phone] Pepito Haro MD PhD Unavailable [phone] Solange Guido MD Unavailable [phone] Encounter Details Date Type Department Care Team (Late st Contact Info) Description 07/26/2024 Orders Only [facility] [address] [place] [address] Scanning, Provider Social History Tobacco Use Types Packs/Day Years Used Date Smoking Tobacco: Never Smokeless Tobacco: Never Alcohol Use Standard Drinks/Week Comments Yes 0 (1 standard drink = 0.6 oz pur e alcohol) rarely [facility] Utilities Answer Date Recorded In the past 12 months has [employer] electric, gas, oil, or water company threatened [...] often do you attend chur ch or christianity services? Never 03/25/2023 Do you belong to any clubs o r organizations such as jew groups, unions, fraternal or athletic groups, or [...] on file Legal Sex Male 2:23 AM PATTERN GRADER SUPERVISOR Gender Identity Not on file Sexual [...] on filedocumented in this encounter Care Teams Armoring Machine Operator Relationship Specialty Start Date End Date Jeff Strickland MD [address] [place] [address] [address] [address] PCP - General Family Medicine 04/02/18 Chan Nicholas MD [facility] STATE [address] [address] Consulting Physician Gastroenterology 11/24/18 Alan Mccall MD [address] [place] [address] [address] Referring Physician Nephrology 11/24/18 Pepito Haro MD PhD [facility] [address] [phone] Consulting Physician Neurosurgery 12/03/22 Solange Guido MD [address] [facility] [address] [place] [address] Referring Physician Cardiovascular Disease 07/23/23 documented as of this encounter
--- OUTSIDE RECORDS SUMMARY | 2024-11-16 18:02 | XMS_ITS | Encounter Summary ---
Author Organization [facility] Address [address] [place] [address] Care Team Providers Care Parachute Panel Joiner Name Role Phone Deandre Bojorquez MD Unavailable [phone] Jeff Strickland MD Primary Care Provider [phone] Encounter Details Date Type Department Care Team (Late st Contact Info) Description 02/07/2023 Lab Requisition [facility] [address] [place] [phone] Alan Davenport MD [facility] [place] [address] Social History Tobacco Use Types Packs/Day Years Used Date Smoking Tobacco: Never Smokeless Tobacco: Never Alcohol Use Standard Drinks/Week Comments Not Currently 0 (1 standard drink = 0.6 oz pur e alcohol) socially in past Sex and Gender Information Value Date Recorded Sex Assigned at Male 07/02/2021 2:37 PM CDT Legal Sex Male 10:14 PM INSPECTOR AND CLERK Gender Identity Male 07/02/2021 2:37 PM [...] Description 12/06/2024 10:40 AM CDT [facility] [address] [place] [address], [place] [address] Marbin Flores MD [address] [facility] DIV OF [place] [address] Niraj Turner MD [address] [place] [address] 2L Div [place] [address] 2025 1:00 PM INSPECTOR AND CLERK Office Visit [facility] - Neurology [address] [place] [address], [place] [address] Becky Wilson MD [address] [place] [phone] documented as of this encounter Procedures Procedure Name Priority Date/Time Associated Diagnosis Comments HOLD HLA SPECIMEN Routine 2023 7:5 8 AM INSPECTOR AND CLERK documented in this encounter Results * HOLD HLA SPECIMEN (2023 7:58 AM INSPECTOR AND CLERK) Hold HLA Specimen 02/07/2023 9:01 AM INSPECTOR AND CLERK [facility] Comment:The Hold HLA specime n has been received into the lab and will be held for 5 years at 4 degrees. Blood BLOOD SPECIMEN / Unknown 2023 7:58 AM INSPECTOR AND CLERK 02/07/2023 7:59 AM INSPECTOR AND CLERK us Alan Davenport MD LAB - BLOOD BANK ORDERABLES F inal Result [facility] [address] documented in this encounter Visit Diagnoses Not on filedocumented in this encounter Additional Health Concerns Infection Onset Date Last Indicated Resolved Time COVID-19 Under Investigation 09/13/2024 09/13/2024 09/13/2024 6:36 AM CDT documented as of this encounter Care Teams Parachute Panel Joiner Relationship Specialty Start Date End Date Jeff Strickland MD [address] [place] [address] PCP - General 03/05/18 [place] [address] [address] Orthopedic Surgery 03/28/17 documented as of this encounter
--- OUTSIDE RECORDS SUMMARY | 2024-11-16 18:03 | XMS_ITS | Encounter Summary ---
Author Organization [facility] Address [address] [facility] [place] [address] Care Team Providers Care Yard Motor Operator Name Role Phone Deandre Bojorquez MD Unavailable [phone] Jeff Strickland MD Primary Care Provider [phone] Encounter Details Date Type Department Care Team (Late st Contact Info) Description 11/12/2024 Orders Only [facility] [address] [place] [address] Griffin Rodriguez MD [address] [facility] DIV OF [facility] [address] [place] [phone] Social History Tobacco Use Types Packs/Day Years [...] Recorded Patient Health Questionnaire-2 Score 6 10/05/2024 [facility] - [...] PM CDT Legal Sex Male 10:14 PM KITCHEN RUNNER Gender Identity Male 07/02/2021 2:37 PM CDT [...] Office Visit [facility] - Endocrinology [address] [place] [address], [place] [address] Marbin Flores MD [address] [facility] DIV OF ABD [place] [address] Niraj Turner MD [address] [place] [address] 2L Div [place] [address] 2025 1:00 PM KITCHEN RUNNER Office Visit [facility] - Neurology [address] [place] [address], [place] [address] Becky Wilson MD [address] [place] [phone] documented as of this encounter Visit Diagnoses Not on filedocumented in this encounter Care Teams Yard Motor Operator Relationship Specialty Start Date End Date Jeff Strickland MD [address] [place] [address] PCP - General 03/05/18 [place] [address] [address] [address] Orthopedic Surgery 03/28/17 documented as of this encounter
--- OUTSIDE RECORDS SUMMARY | 2024-11-16 18:03 | XMS_ITS | Encounter Summary ---
Author Organization [facility] Address [address] [place] [address] Care Team Providers Care Fountain Brush Assembler Name Role Phone Deandre Bojorquez MD Unavailable [phone] Jeff Strickland MD Primary Care Provider [phone] Encounter Details Date Type Department Care Team (Late st Contact Info) Description 09/10/2024 Telephone [facility] - Centralized Scheduling [facility]1 [place] [address] Niraj Turner MD [facility] [place] [address] Social History Tobacco Use Types Packs/Day Years [...] hard at all 09/14/2024 [facility] of Occupat [facility] - [...] were you homeless or living in a mcc (including now)? No 09/14/2024 Sex and Gender Information Value Date Recorded Sex Assigned at Male 07/02/2021 2:37 PM CDT Legal Sex Male 10:14 PM TIRE DESIGN ENGINEER Gender Identity Male 07/02/2021 2:37 [...] Visit [facility] - Endocrinology [address] [place] [address], [place] [phone] Marbin Floers MD [address] [facility] DIV OF ABD [place] [address] Niraj Turner MD [address] [place] [address] [place] [address] 2025 1:00 PM TIRE DESIGN ENGINEER Office Visit [facility] - Neurology [address] [place] [address], [place] [phone] Becky Wilson MD [address] [place] [phone] documented as of this encounter Visit Diagnoses Not on filedocumented in this encounter Additional Health Concerns Infection Onset Date Last Indicated Resolved Time COVID-19 Under Investigation 09/13/2024 09/13/2024 09/13/2024 6:36 AM CDT documented as of this encounter Care Teams Fountain Brush Assembler Relationship Specialty Start Date End Date Jeff Strickland MD [address] [place] [address] PCP - General 03/05/18 [place] [address] [facility] [address] [place] [address] Orthopedic Surgery 03/28/17 documented as of this encounter
--- OUTSIDE RECORDS SUMMARY | 2024-11-16 18:03 | XMS_ITS | Encounter Summary ---
Author Organization [facility] Address [address] [place] [address] Care Team Providers Care Fish Skinning Machine Feeder Name Role Phone Deandre Bojorquez MD Unavailable [phone] Jeff Strickland MD Primary Care Provider [phone] Encounter Details Date Type Department Care Team (Late st Contact Info) Description 09/24/2024 Results Follow-Up [facility] Early Admission Unit [address] [place] [phone] Angel Crook MD [address] [place] [address] Social History Tobacco Use Types Packs/Day Years [...] and heating? Not hard at all 09/24/2024 [facility] [place] of Occupat ional Health - Occupational Stress [...] time in the past 12 m [facility], were you homeless or living in a mcc (including now)? No 09/24/2024 Sex and Gender Information Value Date Recorded Sex Assigned at Male 07/02/2021 2:37 PM CDT Legal Sex Male 10:14 PM FUR PULLER Gender Identity Male 07/02/2021 2:37 PM [...] Visit [facility] - Endocrinology [address] [place] [address], [place] [phone] Marbin Flores MD [address] [facility] DIV [place] [address] Niraj Turner MD [address] [place] [address] [place] [address] 2025 1:00 PM FUR PULLER Office Visit [facility] - Neurology [address] [place] [address], [place] [phone] Becky Wilson MD [address] [place] [phone] documented as of this encounter Visit Diagnoses Not on filedocumented in this encounter Care Teams Fish Skinning Machine Feeder Relationship Specialty Start Date End Date Jeff Strickland MD [address] [place] [address] PCP - General 03/05/18 [place] [address] [facility] [address] [place] [address] Orthopedic Surgery 03/28/17 documented as of this encounter
--- OUTSIDE RECORDS SUMMARY | 2024-11-16 18:03 | XMS_ITS | Clinical Summary ---
Author Organization [facility] Address [address], [place] [address] Phone Care Team Providers Care Sider Name Role Phone Jeff Strickland MD Primary Care Provider [phone] Allergies No known active allergies Medications levothyroxine [...] tablet 3 0 Active Continuous Blood Gluc Chemical Equipment Controller (FreeStyle Em [place]) device 1 each daily 0 Active Continuous Blood Gluc Sensor (FreeStyle Em Sensor System) misc 1 each once every 2 weeks 0 Active Lancets (OneTouch Delica Plus [id number]) misc OneTouch Delica Plus Lancet 33 gauge [...] 11/10/2019 Overview (12/17/2019): Kendall Carl 1955 Referring Advertising Internship: Alan Mccall Dialysis Info: NOD GFR 13 Type: Time: (Not currently on dialysis) days Blood Type: O NEG Body mass index is 37.36 kg/m . ALERTS Shuffle Board Operator: needs to establish Past Medical History: Diagnosis Date Arthropathy RA. Dr Strickland manages. CHF (congestive heart failure) 2 yrs ago Furnace Keeper is Dr. Becerra in [place]. CKD (chronic kidney disease), stage V Community acquired pneumonia [address] [facility] hospitalized. Diabetes mellitus 20 years. Lantus pen. Esophageal reflux takes med Hypercholesteremia 5-10 yrs meds Hypertension takes meds Hypothyroidism meds 20 years Kidney stones 5-6 years ago had 2 in the same year. Malignancy right kidney 2012 Obstructive sleep apnea 3 years. [facility]. Angela remember doctors name Renal cell [...] is the impression of this social media analyst that Kendall Gillris has several positive factors for Kidney transplant candidacy from a psychosocial perspective. Patient appears to have appropriate knowledge of illness. Patient has sufficient insurance coverage and stable financial situation for post transplant needs. No concerns regarding substance abuse, legal issues, or mental health needs. Patient has adequate support system and appropriate discharge plan. Plan: sample worker to provide supportive services as needed. Patient appears to be a reasonable candidate for transplant from a psychosocial perspective. -Post transplant arrangement forms are needed prior to being listed. -Updated toxicology results needed, per protocol Psychiatric Consult Recommended: No Transplant Divorce Lawyer: Joy Tam LCSW RD: 11/09/2019 BMI= 36.2, [...] nephrectomy. 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 [id number] Immunizations Immunization Administration Dates Next Due Influenza [...] Insurance [employer] PM INTERFACED INSURANCE Care Teams Sider Relationship Specialty Start Date End Date Jeff Strickland MD 6812 [facility] 162 [facility] 120 [place] [address] PCP - General Internal Medicine 07/15/18
--- OUTSIDE RECORDS SUMMARY | 2024-11-16 18:03 | XMS_ITS | Encounter Summary ---
Author Organization [facility] Address [address] [facility] [place] [address] Care Team Providers Care Skein Inspector Name Role Phone Deandre Bojorquez MD Unavailable [phone] Jeff Strickland MD Primary Care Provider [phone] Reason for Visit * Reason Onset Date Comments Post-Op 09/03/2024 Encounter Details Date Type Department Care Team (Late st Contact Info) Description 09/03/2024 Telephone [facility]iology [address] [facility], [facility] [address] [place] [address] Hannah Goodman MD [address] [facility] [address] [place] [address] Post-Op Social History Tobacco Use Types Packs/Day [...] and heating? Not hard at all 09/04/2024 [facility] [place] of Occupat ional Health - Occupational Stress [...] living in a halfway (including now)? No 09/04/2024 Sex and Gender Information Value Date Recorded Sex Assigned at Male 07/02/2021 2:37 PM CDT Legal Sex Male 10:14 PM CAKE ICER AND PACKER Gender Identity Male 07/02/2021 2:37 PM [...] confused post op Patient Call Back number: [phone] documented in this encounter Plan of Treatment Upcoming Encounters Date Type Department Care Team (Late st Contact Info) Description 12/06/2024 10:40 AM CDT Office Visit [facility] - Endocrinology [address] [place] [address], [place] [address] Marbin Flores MD 12[address] [facility] DIV [place] [address] Niraj Turner MD [address] [place] [address] 2L [place] [address] 2025 1:00 PM CAKE ICER AND PACKER Office Visit [facility] Neurology [address] [place] [address], [place] [address] Becky Wilson MD [address] [place] [phone] documented as of this encounter Visit Diagnoses Not on filedocumented in this encounter Additional Health Concerns Infection Onset Date Last Indicated Resolved Time COVID-19 Under Investigation 09/13/2024 09/13/2024 09/13/2024 6:36 AM CDT documented as of this encounter Care Teams Skein Inspector Relationship Specialty Start Date End Date Jeff Strickland MD [address] [place] [address] PCP - General 03/05/18 [place] [address] [place] [address] Orthopedic Surgery 03/28/17 documented as of this encounter
--- OUTSIDE RECORDS SUMMARY | 2024-11-16 18:03 | XMS_ITS | Encounter Summary ---
Author Organization [facility] Address [address] [place] [address] Care Team Providers Care Edging Supervisor Name Role Phone Deandre Bojorquez MD Unavailable [phone] Jeff Strickland MD Primary Care Provider [phone] Encounter Details Date Type Department Care Team (Late st Contact Info) Description 06/25/2024 Lab Requisition [facility] MA[facility] LAB [address] [place] [phone] Alan Davenport MD [facility]1 [facility] OF [place] [address] Social History Tobacco Use Types Packs/Day Years Used Date Smoking Tobacco: Never Smokeless Tobacco: Never Alcohol Use Standard Drinks/Week Comments Not Currently 0 (1 standard drink = 0.6 oz pur e alcohol) socially in past Sex and Gender Information Value Date Recorded Sex Assigned at Male 07/02/2021 2:37 PM CDT Legal Sex Male 10:14 PM MENTAL HEALTH ASSISTANT Gender Identity Male 07/02/2021 2:37 PM [...] Office Visit [facility] - Endocrinology [address] [place] [address], [place] [address] Marbin Flores MD 1201 [facility] DIV OF [place] [address] Niraj Turner MD [address] [place] [address] 2L [place] [address] 2025 1:00 PM MENTAL HEALTH ASSISTANT [facility] [address] [place] [address], [place] [address] Becky Wilson MD [address] [place] [phone] documented as of this encounter Procedures Procedure Name Priority Date/Time Associated Diagnosis Comments HOLD HLA SPECIMEN Routine 06/22/2024 11: 05 AM CDT documented in this encounter Results * HOLD HLA SPECIMEN (06/22/2024 11:05 AM CDT) Hold HLA Specimen 06/25/2024 12:32 PM CDT [facility] Comment:The Hold HLA specime n has been received into the lab and will be held for 5 years at 4 degrees. Blood BLOOD SPECIMEN / Unknown 06/22/2024 11:05 AM CDT 06/25/2024 11:05 AM CDT us Alan Davenport MD LAB - BLOOD BANK ORDERABLES F inal Result [facility] [address] documented in this encounter Visit Diagnoses Not on filedocumented in this encounter Additional Health Concerns Infection Onset Date Last Indicated Resolved Time COVID-19 Under Investigation 09/13/2024 09/13/2024 09/13/2024 6:36 AM CDT documented as of this encounter Care Teams Edging Supervisor Relationship Specialty Start Date End Date Jeff Strickland MD [address] [place] [address] PCP - General 03/05/18 [place] [address] [address] Orthopedic Surgery 03/28/17 documented as of this encounter
--- OUTSIDE RECORDS SUMMARY | 2024-11-16 18:03 | XMS_ITS | Clinical Summary ---
Author Organization [facility] Address [address] [place] [address] Phone Care Team Providers Care Systems Development Consultant Name Role Phone Jeff Strickland MD Primary Care Provider [phone] Allergies No known active allergies Medications pantoprazole [...] tablet Take 112 mcg by mouth daily hydraulics teacher. Active aspirin (ANGELLA) 325 mg tablet Take 325 mg by mouth daily. Active Vit C-Vit E-Wccedr-WiKx-L utein (PRESERVISION) 226 mg-200 unit -5 mg-0.8 [...] Comments Blood Pressure 167/77 02/04/2019 9:16 AM MENTAL HEALTH CASE MANAGER Pulse 64 02/04/2019 9:16 AM MENTAL HEALTH CASE MANAGER Temperature 36.5 C (97.7 F) 02/04/2019 9:16 AM MENTAL HEALTH CASE MANAGER Respiratory Rate 16 02/04/2019 9:16 AM MENTAL HEALTH CASE MANAGER Oxygen Saturation 97% 02/04/2019 9:16 AM MENTAL HEALTH CASE MANAGER Inhaled Oxygen Concentration - - Weight 113.4 kg (250 lb) 02/04/2019 9:16 AM MENTAL HEALTH CASE MANAGER Height 175.3 cm (5' 9) 02/04/2019 9:16 AM MENTAL HEALTH CASE MANAGER Body Mass Index 36.92 02/04/2019 9:16 AM MENTAL HEALTH CASE MANAGER Plan of Treatment Health Maintenance Due [...] HOSPITAL BLUE ACCESS/TRUE BLUE PPO Care Teams Systems Development Consultant Relationship Specialty Start Date End Date Jeff Strickland MD [address] [facility] [address] [place] [address] PCP - General Family Practice 01/01/19
--- OUTSIDE RECORDS SUMMARY | 2024-11-16 18:04 | XMS_ITS | Encounter Summary ---
Author Organization [facility] Address [facility]3 [place] [address] Care Team Providers Care Reclaimer Name Role Phone Deandre Bojorquez MD Unavailable [phone] Jeff Strickland MD Primary Care Provider [phone] Encounter Details Date Type Department Care Team (Late st Contact Info) Description 03/30/2024 Lab Requisition [facility] MAIN LAB [address] [place] [phone] Alan Davenport MD [facility] [place] [address] Social History Tobacco Use Types Packs/Day Years Used Date Smoking Tobacco: Never Smokeless Tobacco: Never Alcohol Use Standard Drinks/Week Comments Not Currently 0 (1 standard drink = 0.6 oz pur e alcohol) socially in past Sex and Gender Information Value Date Recorded Sex Assigned at Male 07/02/2021 2:37 PM CDT Legal Sex Male 10:14 PM CORNER BEAD OPERATOR Gender Identity Male 07/02/2021 2:37 PM [...] Description 12/06/2024 10:40 AM CDT [facility] [address] [place] [address], [place] [address] Marbin Flores MD 1201 [facility] DIV [place] [address] Niraj Turner MD [address] [place] [address] 2L Div [place] [address] 2025 1:00 PM CORNER BEAD OPERATOR Office Visit [facility] - Neurology [address] [place] [address], [place] [address] Becky Wilson MD [address] [place] [phone] documented as of this encounter Procedures Procedure Name Priority Date/Time Associated Diagnosis Comments HOLD HLA SPECIMEN Routine 03/25/2024 2:5 1 PM CORNER BEAD OPERATOR documented in this encounter Results * HOLD HLA SPECIMEN (03/25/2024 2:51 PM CORNER BEAD OPERATOR) Hold HLA Specimen 03/30/2024 4:01 PM CORNER BEAD OPERATOR [facility] Comment:The Hold HLA specime n has been received into the lab and will be held for 5 years at 4 degrees. Blood BLOOD SPECIMEN / Unknown 03/25/2024 2:51 PM CORNER BEAD OPERATOR 03/30/2024 2:51 PM CORNER BEAD OPERATOR Alan Davenport MD LAB - BLOOD BANK ORDERABLES F inal Result [facility] [address] documented in this encounter Visit Diagnoses Not on filedocumented in this encounter Additional Health Concerns Infection Onset Date Last Indicated Resolved Time COVID-19 Under Investigation 09/13/2024 09/13/2024 09/13/2024 6:36 AM CDT documented as of this encounter Care Teams Reclaimer Relationship Specialty Start Date End Date Jeff Strickland MD [address] [place] [address] PCP - General 03/05/18 [place] [address] [address] Orthopedic Surgery 03/28/17 documented as of this encounter
--- OUTSIDE RECORDS SUMMARY | 2024-11-16 18:04 | XMS_ITS | Encounter Summary ---
Author Organization [facility] Address [address] [place] [address] Care Team Providers Care Pediatric Registered Nurse Name Role Phone Deandre Bojorquez MD Unavailable [phone] Jeff Strickland MD Primary Care Provider [phone] Encounter Details Date Type Department Care Team (Late st Contact Info) Description 03/12/2024 Lab Requisition [facility] MA[facility] LAB [address] [place] [phone] Alan Davenport MD [facility] OF ABD [place] [address] Social History Tobacco Use Types Packs/Day Years Used Date Smoking Tobacco: Never Smokeless Tobacco: Never Alcohol Use Standard Drinks/Week Comments Not Currently 0 (1 standard drink = 0.6 oz pur e alcohol) socially in past Sex and Gender Information Value Date Recorded Sex Assigned at Male 07/02/2021 2:37 PM CDT Legal Sex Male 10:14 PM INDUSTRIAL INSULATOR Gender Identity Male 07/02/2021 2:37 PM CDT [...] Description 12/06/2024 10:40 AM CDT [facility] [address] [place] [address], [place] [address] Marbin Flores MD [address] [facility] DIV OF ABD [place] [address] Niraj Turner MD [address] [place] [address] 2L [place] [address] 2025 1:00 PM INDUSTRIAL INSULATOR Office Visit [facility] Group - Neurology [address] [place] [address], [place] [address] Becky Wilson MD [address] [place] [phone] documented as of this encounter Procedures Procedure Name Priority Date/Time Associated Diagnosis Comments HOLD HLA SPECIMEN Routine 03/05/2024 1:4 0 PM INDUSTRIAL INSULATOR documented in this encounter Results * HOLD HLA SPECIMEN (03/05/2024 1:40 PM INDUSTRIAL INSULATOR) Hold HLA Specimen 03/12/2024 3:00 PM INDUSTRIAL INSULATOR [facility] Comment:The Hold HLA specime n has been received into the lab and will be held for 5 years at 4 degrees. Blood BLOOD SPECIMEN / Unknown 03/05/2024 1:40 PM INDUSTRIAL INSULATOR 03/12/2024 1:40 PM INDUSTRIAL INSULATOR Alan Davenport MD LAB - BLOOD BANK ORDERABLES F inal Result [facility] [address] documented in this encounter Visit Diagnoses Not on filedocumented in this encounter Additional Health Concerns Infection Onset Date Last Indicated Resolved Time COVID-19 Under Investigation 09/13/2024 09/13/2024 09/13/2024 6:36 AM CDT documented as of this encounter Care Teams Pediatric Registered Nurse Relationship Specialty Start Date End Date Jeff Strickland MD [address] [place] [address] PCP - General 03/05/18 [place] [address] [address] Orthopedic Surgery 03/28/17 documented as of this encounter
--- OUTSIDE RECORDS SUMMARY | 2024-11-16 18:04 | XMS_ITS | Encounter Summary ---
Author Organization [facility] Address [facility]3 [place] [address] Care Team Providers Care Air Dispatcher Name Role Phone Deandre Bojorquez MD Unavailable Jeff Strickland MD Primary Care Provider [phone] Encounter Details Date Type Department Care Team (Late st Contact Info) Description 04/29/2024 Lab Requisition [facility] [address] [place] [phone] Alan Davenport MD [facility] [place]1 [facility] OF ABD [place] [address] Social History Tobacco Use Types Packs/Day Years Used Date Smoking Tobacco: Never Smokeless Tobacco: Never Alcohol Use Standard Drinks/Week Comments Not Currently 0 (1 standard drink = 0.6 oz pur e alcohol) socially in past Sex and Gender Information Value Date Recorded Sex Assigned at Male 07/02/2021 2:37 PM CDT Legal Sex Male 10:14 PM EXTERN Gender Identity Male 07/02/2021 2:37 PM CDT [...] Office Visit [facility] - Endocrinology [address] [place] [address], [place] [address] Marbin Flores MD 1201 [facility] DIV OF ABD [place] [address] Niraj Turner MD [address] [place] [address] 2L [place] [address] 2025 1:00 PM EXTERN Office Visit [facility]ician Group - Neurology [address] [place] [address] [address] Becky Wilson MD [address] [place] [phone] documented as of this encounter Procedures Procedure [...] [facility] [address] documented in this encounter Visit Diagnoses Not on filedocumented in this encounter Additional Health Concerns Infection Onset Date Last Indicated Resolved Time COVID-19 Under Investigation 09/13/2024 09/13/2024 09/13/2024 6:36 AM CDT documented as of this encounter Care Teams Air Dispatcher Relationship Specialty Start Date End Date Jeff Strickland MD [address] [place] [address] PCP - General 03/05/18 [place] [address] [address] Orthopedic Surgery 03/28/17 documented as of this encounter
--- OUTSIDE RECORDS SUMMARY | 2024-11-16 18:04 | XMS_ITS ---
Author Organization [facility] Address [address] [place] [address] Care Team Providers Care Attenuator Name Role Phone Jeff Strickland MD Primary Care Provider Chan Nicholas MD Unavailable [phone] Alan Mccall MD Unavailable [phone] Pepito Haro MD PhD Unavailable Solange Guido [...] both eyes EGFR Routine 04/13/2024 5:06 AM NURSING PROJECT COORDINATOR HEMOGLOBIN A1C STAT 04/10/2024 11:41 PM NURSING PROJECT COORDINATOR LIPID PANEL STAT 04/10/2024 11:41 PM NURSING PROJECT COORDINATOR from Last 3 Months or Most Recently [...] 300 + = 14 units Active FA-vit Odgdj-W-sfte-vitamin D3 (Dialyvite 800-Ultra D) 0.8-2,000 mg-unit tablet [...] total) by mouth 06/04/19 25 Active vitamins A,C,J-vgxc-nflxiz (PreserVision AREDS) 4,296 mcg-226 mg-90 mg capsule [...] damage Assessment & Plan (03/09/2024 6:25 PM NURSING PROJECT COORDINATOR): Vision OD trends mild improvement, though [...] that genetic results would not foreign exchange position clerk. Given we have exhausted available treatment [...] 03/26/2021 Assessment & Plan (03/26/2021 1:17 PM NURSING PROJECT COORDINATOR): Enlarged mild sella turcica on a [...] units Assessment & Plan (03/26/2021 1:17 PM NURSING PROJECT COORDINATOR): Chronic, uncontrolled, improving A1c today 7.7 [...] WNL Assessment & Plan (03/26/2021 1:16 PM NURSING PROJECT COORDINATOR): Pt currently on Levothyroxine 112 mcg [...] 11/18/2018 Assessment & Plan (01/21/2019 2:02 PM NURSING PROJECT COORDINATOR): Symptomatic. Will request for esophageal manometry. [...] well Assessment & Plan (03/26/2021 1:16 PM NURSING PROJECT COORDINATOR): On statin therapy Tolerating well Last [...] nephrectomy. 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 [id number] Immunizations Immunization Administration Dates Next Due Hep [...] = 0.6 oz pur e alcohol) rarely [facility] [employer] Answer Date Recorded In the past 12 months has [employer], gas, oil, or water [employer] threatened to shut off services in your [...] any clubs o r organizations such as hinduism groups, unions, fraternal or athletic groups, or [...] on file Legal Sex Male 2:23 AM NURSING PROJECT COORDINATOR Gender Identity Not on file Sexual [...] CDT Respiratory Rate 16 04/13/2024 8:33 AM NURSING PROJECT COORDINATOR Oxygen Saturation 98% 04/13/2024 8:33 AM NURSING PROJECT COORDINATOR Inhaled Oxygen Concentration - - Weight 122.3 [...] Selwyn Wong M.D. LC: MARC Report ID: [id number] Reading Location: [id number] Procedure Note Dolores Wong MD - 10/12/2024 EXAM DESCRIPTION: MRI BRAIN WO CONTRAST REASON FOR STUDY: other symptoms and signs involving cognitive functionsand awareness Cognitive changes, confusion, worse over that last several weeks, noinjury or trauma but patient states he has had several surgeries recently TECHNIQUE: Multiplanar imaging includes non-contrasted T1, T2, FLAIR, and diffusion with ADC map sequences. Additional sequence(s) sensitive [employer] products. Images stored on PACS. COMPARISON: MRI [...] Selwyn Wong M.D. LC: MARC Report ID: [id number] Reading Location: [id number] us Provider Transcribed Order IMG MRI PROCEDURES [...] Result * (ABNORMAL) eGFR (04/13/2024 5:06 AM NURSING PROJECT COORDINATOR) eGFR 5(L) >=60 mL/min/1. 73 m2 Comment: [...] reviewed 2020. Blood 04/13/2024 5:0 6 AM NURSING PROJECT COORDINATOR 04/13/2024 5:31 AM NURSING PROJECT COORDINATOR us Saul Engle MD LAB BLOOD ORDERABLES Final Resul t [facility] Department of Laboratories [place], [place] [id number] * (ABNORMAL) Lipid panel (04/10/2024 11:41 PM NURSING PROJECT COORDINATOR) Cholesterol 145 30 - 199 mg/dL Comment: [...] on 2017. Triglycerides 453(H) <=149 mg/dL [facility] Comment: Interpretive Data Ages < or = [...] revised on 2017. HDL 22(L) >=40 mg/dL [facility] Comment: Interpretive Data Ages < or = [...] on 2017. LDL, calculated See Comment <=129 [facility] Comment: Unable to calculate LDL due to [...] on 2023. Non-HDL Cholesterol 123 mg/dL [facility] Comment: Interpretive Data Ages < or = [...] last revised on 2017. Chol/HDL ratio 7 [facility] Blood 04/10/2024 11:4 1 PM NURSING PROJECT COORDINATOR 04/10/2024 11:55 PM NURSING PROJECT COORDINATOR us Nicole Boo MD LAB BLOOD ORDERABLES Final Result [facility] Department [place] [address] from Last 3 Months or Most Recently Relevant to Health Maintenance
--- OUTSIDE RECORDS SUMMARY | 2024-11-16 18:04 | XMS_ITS | Clinical Summary ---
Author Organization [facility] Address [facility]ly [facility] [place] [address] Care Team Providers Care Suspender Maker Name Role Phone Jeff Strickland MD Primary Care Provider [phone] Allergies Active Allergy Reactions Criticality Noted Date [...] by mouth nightly at bedtime. 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
--- OUTSIDE RECORDS SUMMARY | 2024-11-16 18:04 | XMS_ITS | Encounter Summary ---
Author Organization [facility] Address [address] [place] [address] Care Team Providers Care Vice President Of Procurement Name Role Phone Deandre Bojorquez MD Unavailable [phone] Jeff Strickland MD Primary Care Provider [phone] Encounter Details Date Type Department Care Team (Late st Contact Info) Description 02/04/2024 Lab Requisition [facility] MAIN LAB [address] [place] [phone] Alan Davenport MD [facility] [place] [address] Social History Tobacco Use Types Packs/Day Years Used Date Smoking Tobacco: Never Smokeless Tobacco: Never Alcohol Use Standard Drinks/Week Comments Not Currently 0 (1 standard drink = 0.6 oz pur e alcohol) socially in past Sex and Gender Information Value Date Recorded Sex Assigned at Male 07/02/2021 2:37 PM CDT Legal Sex Male 10:14 PM TRUST AND ESTATES ATTORNEY Gender Identity Male 07/02/2021 2:37 PM [...] Description 12/06/2024 10:40 AM CDT [facility] - Endocrinology [address] [place] [address], [place] [address] Marbin Flores MD [address] [facility] DIV OF ABD TR[place] [address] Niraj Turner MD [address] [place] [address] [address] Div [place] [address] 2025 1:00 PM TRUST AND ESTATES ATTORNEY Office Visit [facility] - Neurology [address] [place] [address], [place] [address] Becky Wilson MD [address] [place] [phone] documented as of this encounter Procedures Procedure Name Priority Date/Time Associated Diagnosis Comments HOLD HLA SPECIMEN Routine 01/27/2024 3:2 3 PM TRUST AND ESTATES ATTORNEY documented in this encounter Results * HOLD HLA SPECIMEN (01/27/2024 3:23 PM TRUST AND ESTATES ATTORNEY) Hold HLA Specimen 02/04/2024 4:31 PM TRUST AND ESTATES ATTORNEY [facility] Comment:The Hold HLA specime n has been received into the lab and will be held for 5 years at 4 degrees. Blood BLOOD SPECIMEN / Unknown 01/27/2024 3:23 PM TRUST AND ESTATES ATTORNEY 02/04/2024 3:23 PM TRUST AND ESTATES ATTORNEY Alan Davenport MD LAB - BLOOD BANK ORDERABLES F inal Result [facility] [address] documented in this encounter Visit Diagnoses Not on filedocumented in this encounter Additional Health Concerns Infection Onset Date Last Indicated Resolved Time COVID-19 Under Investigation 09/13/2024 09/13/2024 09/13/2024 6:36 AM CDT documented as of this encounter Care Teams Vice President Of Procurement Relationship Specialty Start Date End Date Jeff Strickland MD [address] [place] [address] PCP - General 03/05/18 [place] [address] [address] Orthopedic Surgery 03/28/17 documented as of this encounter
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
--- OUTSIDE RECORDS SUMMARY | 2024-11-16 18:04 | XMS_ITS | Encounter Summary ---
Author Organization [facility] Address [address] [place] [address] Care Team Providers Care Special Shopper Name Role Phone Deandre Bojorquez MD Unavailable Jeff Strickland MD Primary Care Provider [phone] Reason for Referral * Radiology Services (Routine) - Open Specialty Diagnoses / Procedures Referred By Contac t Referred To Contact Interventional Radiology Diagnoses PAD (peripheral artery disease) Procedures IR Angiogram Right Leg IR Angiogram Right Leg Elroy Holcomb MD [address] [place] [address] [address] [place] [address] Phone: tel: fax: [facility] IVR [address] [place] [address] Phone: tel: fax: Referral ID Status Reason Start Date Expiration Date Visits Re quested Visits Authorized [id number] Open 11/16/2024 11/16/2025 1 1 Encounter Details Date Type Department Care Team (Late st Contact Info) Description 11/16/2024 Orders Only [facility] - Vascular Surgery [facility] [facility], [place] [address] Israel Banerjee RN PAD (peripheral artery disease) Social History Tobacco Use Types Packs/Day Years [...] Score 6 10/05/2024 [facility] - Occupational Stress Questionnaire Answer Date Recorded [...] time in the past 12 m [facility], were you homeless or living in a correction (including now)? No 09/24/2024 Sex and Gender Information Value Date Recorded Sex Assigned at Male 07/02/2021 2:37 PM CDT Legal Sex Male 10:14 PM SENIOR MEDIA BUYER Gender Identity Male 07/02/2021 2:37 PM CDT [...] Yael Mandujano RN documented in this encounter Miscellaneous Notes * Addendum Note - Israel Banerjee RN - 11/16/2024 2:39 PM CDTAddended by: ISRAEL BANERJEE on: 11/16/2024 02:39 PM Modules accepted: Orders documented in this encounter Plan of Treatment Upcoming Encounters Date Type Department Care Team (Late st Contact Info) Description 12/06/2024 10:40 AM CDT Office Visit [facility] - Endocrinology [address] [facility] [place] [address] Marbin Flores MD [address] [facility] [place] [address] Niraj Turner MD [address] [place] [address] [address] [place] [address] 2025 1:00 PM SENIOR MEDIA BUYER Office Visit [facility] - Neurology [address] [place] [address], [place] [address] Becky Wilson MD [address] [place] [id number] Scheduled Orders Name Type Priority Associated Diagnoses Orde r Schedule IR Angiogram Right Leg Imaging Routine PAD (peripheral artery disease) 1 Occurrences starting 11/16/2024 until 11/16/2025 documented as of this encounter Visit Diagnoses Diagnosis PAD (peripheral artery disease)- Primary Unspecified disorders of arteries and arterioles documented in this encounter Care Teams Special Shopper Relationship Specialty Start Date End Date Jeff Strickland MD [address] [place] [address] PCP - General 03/05/18 [place] [address] [address] Orthopedic Surgery 03/28/17 documented as of this encounter
[2024-11-16 18:31] VITALS: BP 125/67; PULSE 66; RESP 20; TEMP 36.9; O2SAT 100
--- NOTE | 2024-11-16 18:35 | ED.HA ---
HPI - Headache General Chief Complaint: Headache <Cata Montanez APRN - Last Filed: 11/18/24 23:54> Stated Complaint: headache <Cata Montanez APRN - Last Filed: 11/18/24 23:54> Time Seen by Provider: 11/16/24 18:36 <Cata Montanez APRN - Last Filed: 11/18/24 23:54> Focused HPI: Patient is a 69-year-old male who presents to the ER with complaints of a headache that started 2 hours ago. He endorses mild emesis this morning but that has resolved. Patient also reports his vision is ?slightly blurred. He denies any numbness and tingling, nausea, recent fevers, or recent falls. Patient has an extensive medical history and is well known to this ER. He has a history of diabetes, abnormal thyroid, colitis, toe amputation, and is on blood thinners. GENERAL: Ill-appearing, well-nourished, and in no acute distress. HEAD: Normocephalic, atraumatic. CHEST: Clear to auscultation. ?No respiratory distress. HEART: Regular rate and rhythm.? NEURO: ?Alert and oriented x3. Cranial nerves 2 through 12 intact. Patient screened in triage and initial orders placed.? ?Additional care and disposition to be based upon?diagnostic testing and treatment. <Cata Montanez APRN - Last Filed: 11/18/24 23:54> History of Present Illness HPI Narrative: Agree with the HPI above. Patient's main concerns as left eye that is dry and has a ophthalmology appointment coming up. No recent ocular procedures or surgeries. Has not tried anything at home. <Sascha Bill MD - Last Filed: 12/01/24 01:54> Related Data Home Medications: Home Medications ?Medication ?Instructions ?Recorded ?Confirmed ?Last Taken ?Type aspirin 81 mg tablet,delayed 81 mg PO HS 02/01/19 11/11/24 08/04/24 History release (Sami Low Dose Aspirin) vit C 250 mg-vit E 200 unit-zinc 1 tablet PO Q12H 02/01/19 11/11/24 08/05/24 History 12.5 mg-copper 1 [id number]-irzkhg tablet (ICaps AREDS2 (copper citrate)) cholecalciferol (vitamin D3) 125 125 mcg PO DAILY 10/01/22 11/11/24 08/05/24 History mcg (5,000 unit) tablet (Vitamin D3) atorvastatin 80 mg tablet 80 mg PO HS 09/02/23 11/11/24 08/04/24 History folic acid 0.8 mg-vit B comp with 800 tablet PO DAILY 04/03/24 11/11/24 08/05/24 History N-yqkm-nahstiv D3 2,000 unit tablet (Dialyvite 800-Ultra D) insulin aspart U-100 100 unit/mL 1 sliding scale dose subcut TID 04/03/24 11/11/24 08/05/24 History (3 mL) subcutaneous pen (Novolog FlexPen U-100 Insulin aspart) insulin glargine 100 unit/mL (3 35 unit subcut HS 04/03/24 11/11/24 08/04/24 History mL) subcutaneous pen (Basaglar KwikPen U-100 Insulin) lisinopril 20 mg tablet 20 mg PO BID 04/21/24 11/11/24 08/05/24 History blood-glucose transmitter (Dexcom 04/23/24 11/11/24 Unknown History G6 Transmitter device) carvedilol 25 mg tablet 25 mg PO BID 06/17/24 11/11/24 08/05/24 History tamsulosin 0.4 mg capsule 0.4 mg PO HS 06/17/24 11/11/24 08/04/24 History clopidogrel 75 mg tablet 75 mg PO HS 07/25/24 11/11/24 08/04/24 History furosemide 80 mg tablet 160 mg PO BID 09/23/24 11/11/24 Unknown History midodrine 2.5 mg tablet 2.5 mg PO BID 11/09/24 11/11/24 Unknown History potassium chloride 20 mEq 20 meq PO DAILY 11/09/24 11/11/24 Unknown History tablet,extended release (K-Tab) <Cata Montanez, AMBULETTE DRIVER - Last Filed: 11/18/24 23:54> Allergies/Adverse Reactions: Allergies Allergy/AdvReac Type Severity Reaction Status Date / Time oxycodone AdvReac Unknown Hallucinati Verified 11/28/24 20:30 ng <Cata Montanez, AMBULETTE DRIVER - Last Filed: 11/18/24 23:54> Review of Systems Review of Systems: as above in HPI <Sascha Bill MD - Last Filed: 12/01/24 01:54> [facility] Past Medical History Medical History: Medical History Brain fog Dementia Hypertensive heart disease with heart failure Chronic diarrhea Family history of colon cancer in father Chronic ethmoidal sinusitis Nasal congestion Bilateral impacted cerumen Allergic rhinitis Chronic sinusitis Chronic recurrent sinusitis Hypertensive CHF C. difficile colitis Arthritis Kidney stones Benign prostatic hyperplasia Coronary artery disease End-stage renal disease on peritoneal dialysis Obstructive sleep apnea Insulin dependent type 2 diabetes mellitus Renal cell carcinoma Status post partial left nephrectomy. Dyslipidemia Clostridium difficile infection Gastroesophageal reflux disease Depression with anxiety Hypothyroidism Cirrhosis Pituitary tumor Status post resection. Anemia Chronic diastolic (congestive) heart failure Hypertension <Cata Montanez, AMBULETTE DRIVER - Last Filed: 11/18/24 23:54> Surgical History Surgical History: Surgical History History of open reduction and internal fixation (ORIF) procedure (11/2022) Screw fixation of sternal fracture. History of colonoscopy with polypectomy History of umbilical hernia repair History of inguinal hernia repair History of coronary artery stent placement History of cardiac catheterization (08/2020) Stent x2 to the LAD. History of arthroplasty of right knee History of cataract extraction History of pituitary surgery (11/2021) History of partial nephrectomy Partial left nephrectomy for renal cell carcinoma. History of cholecystectomy (2007) <Cata Montanez, AMBULETTE DRIVER - Last Filed: 11/18/24 23:54> Family History Family History: Family History Mother Aneurysm Hypertension Cerebrovascular accident Heart murmur Father Carcinoma of colon <Cata Montanez, AMBULETTE DRIVER - Last Filed: 11/18/24 23:54> Social History Social History: Social History Social History: Surrogate medical decision maker: Harriet Cral, spouse. Code status: Full code. Smoking status: Never smoker Second hand tobacco smoke exposure: No Alcohol intake: never Alcohol use details: rare, holidays Substance use: never Substance use type: does not use Do You Feel Safe in your Home?: Yes Lack of Transportation: No Lack of Food: Never True Current Housing: I Have Housing Concerned About Future Housing: No Difficulty Paying Gas/Electric Bills: No Difficulty Paying for Meds: No Currently Unemployed: No Education: Trade/Vocational Certificate Difficulty w/ Childcare or Family Care: No Living arrangements: with family Additional living arrangements comments: Lives with spouse in [place]. Occupation/Education: retired Additional occupation/education comments: [employer]. Spiritual care concerns: No Agree to blood products: Yes <Cata Montanez APRN - Last Filed: 11/18/24 23:54> Exam Narrative: GENERAL: [Well-appearing, well-nourished, and in no acute distress.] HEAD: [Normocephalic, atraumatic.] EYES: pupils are equal reactive to light, extraocular movements are intact. Fibrous growth in the left eye extending from the lateral aspect into the iris consistent with a pyterygium. He no entrapment or bleeding. No scleral icterus or injection. No subconjunctival hematoma. ENT: Nares clear, no rhinorrhea or epistaxis. Mucous membranes moist. NECK: Supple. CHEST: [Clear to auscultation. No respiratory distress.] HEART: [Regular rate and rhythm]. No murmur heard. [Normal peripheral pulses.] ABDOMEN: [Soft, nondistended], [nontender], [No rigidity or guarding] EXTREMITIES: Normal range of motion. [No edema.] SKIN: Warm, dry, no rash. NEURO: [No focal deficits]. Alert and oriented [x3.] PSYCH: [Normal mood and affect.] <Sascha Bill MD - Last Filed: 12/01/24 01:54> Course Vital Signs Vital signs: Vital Signs Temperature 36.9 C 11/16/24 18:31 Pulse Rate 66 11/16/24 18:31 Respiratory Rate 20 11/16/24 18:31 Blood Pressure 125/67 11/16/24 18:31 Pulse Oximetry 100 11/16/24 18:31 Oxygen Delivery Room Air 11/16/24 18:31 Temperature 36.6 C 11/16/24 21:28 Pulse Rate 61 11/16/24 23:13 Respiratory Rate 15 11/16/24 23:13 Blood Pressure 138/90 11/16/24 23:13 Pulse Oximetry 98 11/16/24 23:13 Oxygen Delivery Room Air 11/16/24 21:28 <Cata Montanez APRN - Last Filed: 11/18/24 23:54> Vital Signs Temperature 36.9 C 11/16/24 18:31 Pulse Rate 66 11/16/24 18:31 Respiratory Rate 20 11/16/24 18:31 Blood Pressure 125/67 11/16/24 18:31 Pulse Oximetry 100 11/16/24 18:31 Oxygen Delivery Room Air 11/16/24 18:31 Temperature 36.6 C 11/16/24 21:28 Pulse Rate 61 11/16/24 23:13 Respiratory Rate 15 11/16/24 23:13 Blood Pressure 138/90 11/16/24 23:13 Pulse Oximetry 98 11/16/24 23:13 Oxygen Delivery Room Air 11/16/24 21:28 <Sascha Bill MD - Last Filed: 12/01/24 01:54> MDM - Headache MDM Narrative Medical decision making narrative: 69-year-old male presenting to the emergency department with her headache and some left eye irritation/dryness. Patient is well-known to this facility and has extensive medical problems including peritoneal dialysis for his end-stage renal disease, diabetes tear patient has had previous workups for his headaches and frequently leaves against medical advice on review of the EMR. Patient is overall pleasant not any acute distress. Workup ordered in triage including head CT. His ocular complaints seem to be related to a pterygium which is evident on his examination. Appears likely benign fibrous growth and he already has established ophthalmology follow-up this week. Given some artificial eyedrops for lubrication while workup was unremarkable. Patient's headache has resolved throughout his stay in the ED without any interventions. Remains hemodynamically stable and comfortable with discharge home at this time with ophthalmology follow-up and return precautions. <Sascha Bill MD - Last Filed: 12/01/24 01:54> Medical Records Attestation: I reviewed the patient's medical records. <Sascha Bill MD - Last Filed: 12/01/24 01:54> Lab Data Attestation: I reviewed the patient's lab results. <Sascha Bill MD - Last Filed: 12/01/24 01:54> Result diagrams: 11/16/24 21:48 11/16/24 21:48 <Cata Montanez APRN - Last Filed: 11/18/24 23:54> Labs: Lab Results 11/16/24 11/16/24 Range/Units 21:45 21:48 WBC 6.6 (4.5-10.0) K/mm3 RBC 3.74 L (4.6-6.20) M/mm3 Hgb 10.6 L (14.0-18.0) g/dL Hct 33.8 L (42.0-52.0) % MCV 90.4 (80-100) fl MCH 28.3 (26-34) pg MCHC 31.4 L (32-36) g/dl RDW 17.6 H (11.5-14.5) % Plt Count 184 (150-375) k/mm3 MPV 9.8 (7.4-10.4) fl Immature Gran % (Auto) 1.2 H (0-0.5) % Neut % (Auto) 63.2 (45.5-73.1) % Lymph % (Auto) 18.3 (18.3-44.2) % Ocean % (Auto) 16.0 H (2.6-8.5) % Eos % (Auto) 1.1 (0-4.4) % Baso % (Auto) 0.2 (0.2-1.2) % Lymph # (Auto) 1.21 (0.9-3.2) K/mm3 Ocean # (Auto) 1.1 H (0.1-0.6) K/mm3 Eos # (Auto) 0.1 (0-0.3) K/mm3 Baso # (Auto) 0.0 (0.0-0.1) K/mm3 Abs Immat Gran (auto) 0.08 H (0.00-0.031) K/mm3 Absolute Neuts (auto) 4.2 (1.3-6.7) K/mm3 Absolute Nucleated RBC 0.000 (0.0-0.012) K/mm3 Nucleated RBC % 0.0 (0.0-0.2) % PT 13.4 (11.1-14.7) Seconds INR 1.0 APTT 28.0 (22.3-36.8) Seconds Sodium 133 L (137-145) mmol/L Potassium 3.3 L (3.4-5.0) mmol/L Chloride 98 (98-107) mmol/L Carbon Dioxide 27 (22-30) mmol/L Anion Gap 8 (4-12) mmol/L BUN 33 H (9-20) mg/dL Creatinine 7.60 H (0.7-1.3) mg/dL Estim Creat Clear Calc 10 ml/min Estimated GFR 7 L (59 - ) Glucose 85 (65-110) mg/dL POC Capillary Glucose 88 (65-105) mg/dl Calcium 8.4 (8.4-10.2) mg/dL Total Bilirubin 0.4 (0.2-1.3) mg/dL AST 175 H (17-59) U/L ALT 187 H (6-50) U/L Alkaline Phosphatase 142 H (38-126) U/L Total Protein 5.5 L (6.3-8.2) g/dL Albumin 2.8 L (3.5-5.1) g/dL <Cata Montanez, AMBULETTE DRIVER - Last Filed: 11/18/24 23:54> Lab Results 11/16/24 11/16/24 Range/Units 21:45 21:48 WBC 6.6 (4.5-10.0) K/mm3 RBC 3.74 L (4.6-6.20) M/mm3 Hgb 10.6 L (14.0-18.0) g/dL Hct 33.8 L (42.0-52.0) % MCV 90.4 (80-100) fl MCH 28.3 (26-34) pg MCHC 31.4 L (32-36) g/dl RDW 17.6 H (11.5-14.5) % Plt Count 184 (150-375) k/mm3 MPV 9.8 (7.4-10.4) fl Immature Gran % (Auto) 1.2 H (0-0.5) % Neut % (Auto) 63.2 (45.5-73.1) % Lymph % (Auto) 18.3 (18.3-44.2) % Ocean % (Auto) 16.0 H (2.6-8.5) % Eos % (Auto) 1.1 (0-4.4) % Baso % (Auto) 0.2 (0.2-1.2) % Lymph # (Auto) 1.21 (0.9-3.2) K/mm3 Ocean # (Auto) 1.1 H (0.1-0.6) K/mm3 Eos # (Auto) 0.1 (0-0.3) K/mm3 Baso # (Auto) 0.0 (0.0-0.1) K/mm3 Abs Immat Gran (auto) 0.08 H (0.00-0.031) K/mm3 Absolute Neuts (auto) 4.2 (1.3-6.7) K/mm3 Absolute Nucleated RBC 0.000 (0.0-0.012) K/mm3 Nucleated RBC % 0.0 (0.0-0.2) % PT 13.4 (11.1-14.7) Seconds INR 1.0 APTT 28.0 (22.3-36.8) Seconds Sodium 133 L (137-145) mmol/L Potassium 3.3 L (3.4-5.0) mmol/L Chloride 98 (98-107) mmol/L Carbon Dioxide 27 (22-30) mmol/L Anion Gap 8 (4-12) mmol/L BUN 33 H (9-20) mg/dL Creatinine 7.60 H (0.7-1.3) mg/dL Estim Creat Clear Calc 10 ml/min Estimated GFR 7 L (59 - ) Glucose 85 (65-110) mg/dL POC Capillary Glucose 88 (65-105) mg/dl Calcium 8.4 (8.4-10.2) mg/dL Total Bilirubin 0.4 (0.2-1.3) mg/dL AST 175 H (17-59) U/L ALT 187 H (6-50) U/L Alkaline Phosphatase 142 H (38-126) U/L Total Protein 5.5 L (6.3-8.2) g/dL Albumin 2.8 L (3.5-5.1) g/dL <Sascha Bill MD - Last Filed: 12/01/24 01:54> Imaging Data Attestation: I personally reviewed and interpreted this imaging study as follows: <Sascha Bill MD - Last Filed: 12/01/24 01:54> Discharge Plan Discharge Clinical Impression: Pterygium of left eye, Dry eye, End-stage renal disease on peritoneal dialysis <Cata Montanez APRN - Last Filed: 11/18/24 23:54> Patient Disposition: Home <Cata Montanez APRN - Last Filed: 11/18/24 23:54> Condition: Stable <Cata Montanez APRN - Last Filed: 11/18/24 23:54> Instructions: Antibiotic Form, Pterygium (ED) <Cata Montanez APRN - Last Filed: 11/18/24 23:54> Additional Instructions: You have what appears to be a benign appearing growth in your left eye consistent with fibrous tissue called pterygium. This tends to be dry and can cause symptoms of eye irritation. No red flag signs or symptoms on your examination. No visual changes or vision loss at this time. 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 Your scans and labs are unremarkable today. Return with any emergent concerns or vision loss <Cata Montanez APRN - Last Filed: 11/18/24 23:54> Patient Language: Indonesian <Cata Montanez APRN - Last Filed: 11/18/24 23:54> Prescriptions: New artificial tears(hypromellose) 0.3 % drops 1 drp LEFT EYE QID PRN (Reason: dry eyes) Qty: 30 0RF No Action aspirin [Sami Low Dose Aspirin] 81 mg Tablet,Delayed Release (Dr/Ec) 81 mg PO HS ICaps AREDS2 (copper citrate) 250 mg-200 unit -12.5 mg-1 mg Tablet 1 tablet PO Q12H (DME) Dexcom G6 Transmitter Device See Rx Instructions .Route Rx Instructions: As directed gabapentin 100 mg tablet 100 mg PO BID Qty: 60 1RF lanthanum 1,000 mg tablet,chewable 1,000 mg PO TID Qty: 1 0RF Rx Instructions: administer with food; chew thoroughly before swallowing furosemide 80 mg tablet 160 mg PO BID lisinopril 20 mg tablet 20 mg PO BID pantoprazole 40 mg tablet,delayed release (DR/EC) 40 mg PO QAM Qty: 90 3RF midodrine 2.5 mg tablet 2.5 mg PO BID Rx Instructions: do not give last dose of day after 6PM or within 4 hrs of bedtime potassium chloride [K-Tab] 20 mEq tablet extended release 20 meq PO DAILY donepezil [Aricept] 5 mg tablet 5 mg PO QHS Qty: 90 1RF Rx Instructions: increase to 2 tablets after 1 month escitalopram oxalate [Lexapro] 10 mg tablet 10 mg PO DAILY Qty: 30 3RF famotidine 20 mg tablet 20 mg PO DAILY Qty: 30 0RF ondansetron 4 mg tablet,disintegrating 4 mg PO Q8H PRN (Reason: nausea and vomiting) Qty: 8 0RF acetaminophen 650 mg tablet extended release 650 mg PO Q8H PRN (Reason: pain) Qty: 30 0RF magnesium oxide 400 mg magnesium tablet 400 mg PO DAILY Qty: 30 0RF cholecalciferol (vitamin D3) [Vitamin D3] 125 mcg (5,000 unit) Tablet 125 mcg PO DAILY atorvastatin 80 mg tablet 80 mg PO HS carvedilol 25 mg tablet 25 mg PO BID tamsulosin 0.4 mg capsule 0.4 mg PO HS Dialyvite 800-Ultra D 0.8-2,000 mg-unit tablet 800 tablet PO DAILY insulin aspart U-100 [Novolog FlexPen U-100 Insulin] 100 unit/mL (3 mL) insulin pen 1 sliding scale dose subcut TID Patient Comments: PATIENT TAKES 5 UNITS WITH MEALS SCHEDULED AND GOES UP TO 15 UNITS IF IT GETS TO 300 insulin glargine [Basaglar KwikPen U-100 Insulin] 100 unit/mL (3 mL) insulin pen 35 unit subcut HS Patient Comments: 40 UNITS IN MORNING clopidogrel 75 mg tablet 75 mg PO HS hydrocodone-acetaminophen 5-325 mg tablet 1 tablet PO Q6H PRN (Reason: pain) Qty: 30 0RF levothyroxine 112 mcg tablet 112 mcg PO DAILY Qty: 90 2RF <Cata L. [place], AMBULETTE DRIVER - Last Filed: 11/18/24 23:54> Follow-up/Referrals: Jeff Strickland MD [Primary Care Provider, [facility]] <Cata Montanez APRN - Last Filed: 11/18/24 23:54> Time of Disposition: 22:35 <Cata Montanez APRN - Last Filed: 11/18/24 23:54> 22:35 <Sascha Bill MD - Last Filed: 12/01/24 01:54>
[2024-11-16 21:28] VITALS: BP 141/79; PULSE 66; RESP 12; TEMP 36.6; O2SAT 100
[2024-11-16 21:33] VITALS: BP 141/79; PULSE 65; RESP 14; O2SAT 100
[2024-11-16 21:56] LABS: Hematocrit 33.8 % (42.0-52.0); Hemoglobin 10.6 g/dL (14.0-18.0); Immature Granulocyte Percent A 1.2 % (0-0.5); Lymphocytes Absolute Auto 1.21 K/mm3 (0.9-3.2); Mean Corpuscular HGB Conc 31.4 g/dl (32-36); Mean Corpuscular Hemoglobin 28.3 pg (26-34); Mean Corpuscular Volume 90.4 fl (80-100); Nucleated Red Blood Cells Absolute Auto 0.000 K/mm3 (0.0-0.012); Nucleated Red Blood Cells Perc 0.0 % (0.0-0.2); Platelet Count Result 184 k/mm3 (150-375); Red Blood Count 3.74 M/mm3 (4.6-6.20); White Blood Count 6.6 K/mm3 (4.5-10.0)
--- OUTSIDE RECORDS SUMMARY | 2024-11-16 21:57 | XMS_ITS | Encounter Summary ---
Author Organization [facility] Address [address] [place] [address] Phone Care Team Providers Care Shearer Helper Name Role Phone Jeff Strickland MD Primary Care Provider Chan Nicholas MD Unavailable [phone] Alan Mccall MD Unavailable [phone] Lorna Lantigua MD Unavailable Juliette Savage RN Unavailable [phone] Pepito Haro MD PhD Unavailable Solange Guido MD Unavailable Letha Gil RN Unavailable Encounter Details Date Type Department Care Team (Late st Contact Info) Description 05/02/2021 Ophth Exam [facility] Medicine Ophthalmology [address] [place] [address] 1[address] [place] [id number] Corina Ventura MD PhD [address] [address] Social History Tobacco Use Types [...] on file Legal Sex Male 2:23 AM WELL TREATMENT OFFSIDER Gender Identity Not on file Sexual Orientation [...] COVID: Suspected 03/24/2023 03/24/2023 03/24/2023 5:45 PM WELL TREATMENT OFFSIDER COVID19 03/24/2023 03/24/2023 04/08/2023 3:06 AM WELL TREATMENT OFFSIDER COVID: Recovered Comment:Added based on recent COVID infection. 04/08/2023 04/10/2023 07/07/2023 3:06 AM C DT COVID: Suspected 04/10/2024 04/10/2024 04/11/2024 1:24 AM WELL TREATMENT OFFSIDER C. difficile suspected 04/11/2024 04/11/202404/11 1:21 PM WELL TREATMENT OFFSIDER documented as of this encounter Eye Exam [...] arcade Normal Periphery Normal Normal Care Teams Shearer Helper Relationship Specialty Start Date End Date Jeff Strickland MD [address] [address] PCP - General Family Medicine 04/02/18 Chan Nicholas MD [address] [place] [address] [id number] Consulting Physician Gastroenterology 11/24/18 Alan Mccall MD [address] [place] [address] [address] Referring Physician Nephrology 11/24/18 Lorna Lantigua MD [facility] [address] [address] Consulting Physician Cardiology 11/24/18 07/22/23 Juliette Savage, RN [address] [place] [address] Nurse Navigator 06/04/21 03/14/22 Pepito Haro MD PhD [address] [place] [address] Consulting Physician Neurosurgery 12/03/22 Solange Guido MD [address] [facility] [address] [place] [address] Referring Physician Cardiovascular Disease 07/23/23 Letha Gil, RN [address] [facility] [address] [place] [address] SHOP Outpatient Respiratory Clinician 04/14/24 04/18/24 documented as of this encounter
--- OUTSIDE RECORDS SUMMARY | 2024-11-16 21:57 | XMS_ITS | Clinical Summary ---
Author Organization [facility] Address [address] [place] [address] Care Team Providers Care Restaurant Operations Manager Name Role Phone Jeff Strickland MD [...] mouth daily. Active nystatin-triamc inolone (MYCOLOG II) 243616-6.1 UNIT/GM-% Cream 5 Active ondansetron (ZOFRAN-ODT) 4 [...] Group - Cardiology [facility] [address] [place] [address] Suly Smith APRN, LOCOMOTIVE ENGINEER ELECTRIC 10/15/2024 Telephone [facility] Cardiology [facility] [address] [place] [address] Hannah Goodman MD 10/14/2024 2:40 PM CDT Clinical Support [facility] Cardiology [facility] [address] [facility] [place] [phone] NurseAsim Cardiology Dressing change (Primary Dx) Discharge [...] st Contact Info) Description 04/11/2025 11:30 AM BLAST FURNACE KEEPER Office Visit [facility] - Cardiology - [place] [address] [place] [address] He Maylin, DO [address] [facility] [address] [address] Health Maintenance Due Date Last Done Comments [...] topic Insurance MEDICARE C [employer] Care Teams Restaurant Operations Manager Relationship Specialty Start Date End Date Jeff Strickland MD [address] [place] [address] PCP - General Family Medicine 10/14/24
--- OUTSIDE RECORDS SUMMARY | 2024-11-16 21:57 | XMS_ITS | Encounter Summary ---
Author Organization [facility] Address [facility]3 [place] [address] Care Team Providers Care Grinder And Honer Operator Automatic Name Role Phone Deandre Bojorquez MD Unavailable [phone] Jeff Strickland MD Primary Care Provider [phone] Encounter Details Date Type Department Care Team (Late st Contact Info) Description 09/30/2023 Lab Requisition [facility] MAIN LAB [address] [place] [id number] Alan Davenport MD [facility]1 [facility] [place] [address] Social History Tobacco Use Types Packs/Day Years Used Date Smoking Tobacco: Never Smokeless Tobacco: Never Alcohol Use Standard Drinks/Week Comments Not Currently 0 (1 standard drink = 0.6 oz pur e alcohol) socially in past Sex and Gender Information Value Date Recorded Sex Assigned at Male 07/02/2021 2:37 PM CDT Legal Sex Male 10:14 PM SHUTTLE FIXER Gender Identity Male 07/02/2021 2:37 PM CDT [...] Office Visit [facility] - Endocrinology [address] [place] [address], [place] [address] Marbin Flores MD [address] [facility] DIV [place] [address] Niraj Turner MD [address] [place] [address] 2L [place] [address] 2025 1:00 PM SHUTTLE FIXER [facility] [address] [place] [address], [place] [address] Becky Wilson MD [address] [place] [phone] documented as of this encounter Procedures Procedure Name Priority Date/Time Associated Diagnosis Comments HOLD HLA SPECIMEN Routine 09/24/2023 3:2 7 PM CDT documented in this encounter Results * HOLD HLA SPECIMEN (09/24/2023 3:27 PM CDT) Hold HLA Specimen 09/30/2023 4:32 PM CDT [facility] Comment:The Hold HLA specime n has been received into the lab and will be held for 5 years at 4 degrees. Blood BLOOD SPECIMEN / Unknown 09/24/2023 3:27 PM CDT 09/30/2023 3:27 PM CDT us Alan Davenport MD LAB - BLOOD BANK ORDERABLES F inal Result [facility] [address] documented in this encounter Visit Diagnoses Not on filedocumented in this encounter Additional Health Concerns Infection Onset Date Last Indicated Resolved Time COVID-19 Under Investigation 09/13/2024 09/13/2024 09/13/2024 6:36 AM CDT documented as of this encounter Care Teams Grinder And Honer Operator Automatic Relationship Specialty Start Date End Date Jeff Strickland MD [address] [place] [address] PCP - General 03/05/18 [place] [address] [address] Orthopedic Surgery 03/28/17 documented as of this encounter
--- OUTSIDE RECORDS SUMMARY | 2024-11-16 21:57 | XMS_ITS | Encounter Summary ---
Author Organization [facility] Address [facility]3 [place] [address] Care Team Providers Care Lubricator Granulator Name Role Phone Deandre Bojorquez MD Unavailable [phone] Jeff Strickland MD Primary Care Provider [phone] Encounter Details Date Type Department Care Team (Late st Contact Info) Description 10/28/2023 Lab Requisition [facility] MAIN LAB [address] [place] [phone] Alan Davenport MD [facility]1 [facility] [place] [address] Social History Tobacco Use Types Packs/Day Years Used Date Smoking Tobacco: Never Smokeless Tobacco: Never Alcohol Use Standard Drinks/Week Comments Not Currently 0 (1 standard drink = 0.6 oz pur e alcohol) socially in past Sex and Gender Information Value Date Recorded Sex Assigned at Male 07/02/2021 2:37 PM CDT 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 DIV [place] [address] Niraj Turner MD [address] [place] [address] 2L [place] [address] 2025 1:00 PM LABOR RELATIONS OR PERSONNEL NEGOTIATOR [facility] [address] [place] [address], [place] [address] Becky Wilson MD [address] [place] [phone] documented as of this encounter Procedures Procedure [...] - BLOOD BANK ORDERABLES F inal Result [facility] [address] documented in this encounter Visit Diagnoses Not on filedocumented in this encounter Additional Health Concerns Infection Onset Date Last Indicated Resolved Time COVID-19 Under Investigation 09/13/2024 09/13/2024 09/13/2024 6:36 AM CDT documented as of this encounter Care Teams Lubricator Granulator Relationship Specialty Start Date End Date Jeff Strickland MD [address] [place] [address] PCP - General 03/05/18 [place] [address] [address] Orthopedic Surgery 03/28/17 documented as of this encounter
--- OUTSIDE RECORDS SUMMARY | 2024-11-16 21:57 | XMS_ITS | Encounter Summary ---
Author Organization [facility] Address [facility]3 [place] [address] Care Team Providers Care Loom Repairer Name Role Phone Deandre Bojorquez MD Unavailable [phone] Jeff Strickland MD Primary Care Provider [phone] Encounter Details Date Type Department Care Team (Late st Contact Info) Description 07/31/2023 Lab Requisition [facility] MAIN LAB [address] [place] [phone] Alan Davenport MD [facility]1 [facility] OF [place] [address] Social History Tobacco Use Types Packs/Day Years Used Date Smoking Tobacco: Never Smokeless Tobacco: Never Alcohol Use Standard Drinks/Week Comments Not Currently 0 (1 standard drink = 0.6 oz pur e alcohol) socially in past Sex and Gender Information Value Date Recorded Sex Assigned at Male 07/02/2021 2:37 PM CDT 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 Gender Identity Male 07/02/2021 2:37 PM CDT [...] Office Visit [facility] Endocrinology [address] [place] [address], [place] [address] Marbin Flores MD 1201 [facility] DIV OF [place] [address] Niraj Turner MD [address] [place] [address] 2L Div [place] [address] 2025 1:00 PM STEAMER BLOCKER Office Visit [facility] - Neurology [address] [place] [address], [place] [address] Becky Wilson MD [address] [place] [phone] documented as of this encounter Procedures Procedure Name Priority Date/Time Associated Diagnosis Comments HOLD HLA SPECIMEN Routine 07/23/2023 2:0 5 PM CDT documented in this encounter Results * HOLD HLA SPECIMEN (07/23/2023 2:05 PM CDT) Hold HLA Specimen 07/31/2023 3:32 PM CDT [facility] Comment:The Hold HLA specime n has been received into the lab and will be held for 5 years at 4 degrees. Blood BLOOD SPECIMEN / Unknown 07/23/2023 2:05 PM CDT 07/31/2023 2:06 PM CDT us Alan Davenport MD LAB - BLOOD BANK ORDERABLES F inal Result [facility] [address] documented in this encounter Visit Diagnoses Not on filedocumented in this encounter Additional Health Concerns Infection Onset Date Last Indicated Resolved Time COVID-19 Under Investigation 09/13/2024 09/13/2024 09/13/2024 6:36 AM CDT documented as of this encounter Care Teams Loom Repairer Relationship Specialty Start Date End Date Jeff Strickland MD [address] [place] [address] PCP - General 03/05/18 [place] [address] [address] Orthopedic Surgery 03/28/17 documented as of this encounter
--- OUTSIDE RECORDS SUMMARY | 2024-11-16 21:57 | XMS_ITS | Encounter Summary ---
Author Organization [facility] Address [facility]3 [place] [address] Care Team Providers Care Application Chemist Name Role Phone Deandre Bojorquez MD Unavailable [phone] Jeff Strickland MD Primary Care Provider Encounter Details Date Type Department Care Team (Late st Contact Info) Description 11/21/2023 Lab Requisition [facility] MAIN LAB [address] [place] [phone] Alan Davenport MD [facility] OF [place] [address] Social History Tobacco Use Types Packs/Day Years Used Date Smoking Tobacco: Never Smokeless Tobacco: Never Alcohol Use Standard Drinks/Week Comments Not Currently 0 (1 standard drink = 0.6 oz pur e alcohol) socially in past Sex and Gender Information Value Date Recorded Sex Assigned at Male 07/02/2021 2:37 PM CDT 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 DIV OF [place] [address] Niraj Turner MD [address] [place] [address] 2L [place] [address] 2025 1:00 PM UI UX WEB DEVELOPER Office Visit [facility] - Neurology [address] [place] [address], [place] [address] Becky Wilson MD [address] [place] [phone] documented as of this encounter Procedures Procedure Name Priority Date/Time Associated Diagnosis Comments HOLD HLA SPECIMEN Routine 11/18/2023 12: 16 PM CDT documented in this encounter Results * HOLD HLA SPECIMEN (11/18/2023 12:16 PM CDT) Hold HLA Specimen 11/21/2023 1:31 PM CDT [facility] Comment:The Hold HLA specime n has been received into the lab and will be held for 5 years at 4 degrees. Blood BLOOD SPECIMEN / Unknown 11/18/2023 12:16 PM CDT 11/21/2023 12:17 PM CDT us Alan Davenport MD LAB - BLOOD BANK ORDERABLES F inal Result [facility] [address] documented in this encounter Visit Diagnoses Not on filedocumented in this encounter Additional Health Concerns Infection Onset Date Last Indicated Resolved Time COVID-19 Under Investigation 09/13/2024 09/13/2024 09/13/2024 6:36 AM CDT documented as of this encounter Care Teams Application Chemist Relationship Specialty Start Date End Date Jeff Strickland MD [address] [place] [address] PCP - General 03/05/18 [place] [address] [address] Orthopedic Surgery 03/28/17 documented as of this encounter
--- OUTSIDE RECORDS SUMMARY | 2024-11-16 21:57 | XMS_ITS | Encounter Summary ---
Author Organization [facility] Address [facility]3 [place] [address] Care Team Providers Care Amusement Machine Mechanic Name Role Phone Deandre Bojorquez MD Unavailable Jeff Strickland MD Primary Care Provider [phone] Encounter Details Date Type Department Care Team (Late st Contact Info) Description 05/29/2023 Lab Requisition [facility] MAIN LAB [address] [place] [phone] Alan Davenport MD [facility]1 [facility] OF [place] [address] Social History Tobacco Use Types Packs/Day Years Used Date Smoking Tobacco: Never Smokeless Tobacco: Never Alcohol Use Standard Drinks/Week Comments Not Currently 0 (1 standard drink = 0.6 oz pur e alcohol) socially in past Sex and Gender Information Value Date Recorded Sex Assigned at Male 07/02/2021 2:37 PM CDT 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 Gender Identity Male 07/02/2021 2:37 PM [...] Visit [facility] - Endocrinology [address] [place] [address], [place] [phone] Marbin Flores MD 1201 [facility] DIV OF [place] [address] Niraj Turner MD [address] [place] [address] 2L [place] [address] 2025 1:00 PM CURING ROOM WORKER Office Visit [facility] - Neurology [address] [place] [address], [place] [address] Becky Wilson MD [address] [place] [phone] documented as of this encounter Procedures Procedure Name Priority Date/Time Associated Diagnosis Comments HOLD HLA SPECIMEN Routine 05/21/2023 9:2 4 AM CDT documented in this encounter Results * HOLD HLA SPECIMEN (05/21/2023 9:24 AM CDT) Hold HLA Specimen 05/29/2023 10:30 AM CDT [facility] Comment:The Hold HLA specime n has been received into the lab and will be held for 5 years at 4 degrees. Blood BLOOD SPECIMEN / Unknown 05/21/2023 9:24 AM CDT 05/29/2023 9:24 AM CDT us Alan Davenport MD LAB - BLOOD BANK ORDERABLES F inal Result [facility]) [address] [place] [address] documented in this encounter Visit Diagnoses Not on filedocumented in this encounter Additional Health Concerns Infection Onset Date Last Indicated Resolved Time COVID-19 Under Investigation 09/13/2024 09/13/2024 09/13/2024 6:36 AM CDT documented as of this encounter Care Teams Amusement Machine Mechanic Relationship Specialty Start Date End Date Jeff Strickland MD [address] [place] [address] PCP - General 03/05/18 [place] [address] [address] Orthopedic Surgery 03/28/17 documented as of this encounter
--- OUTSIDE RECORDS SUMMARY | 2024-11-16 21:57 | XMS_ITS | Clinical Summary ---
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 with occlusion in the DP in the foot. Right lower extremity angiogram with patent FREELANCE OPERATOR, SFA, and TP trunk with an occluded AT distally, andocclusion in peroneal at level of ankle, and multifocal areas of stenosis in thePT which appears occluded at the level of the ankle. Successful deploymentof 5 Fr Mynx control closure device. Total fluoroscopy time of 4.2min. Total contrast usage of 60mL > Dictated by Elroy Owusu 11/12/2024 9:47 AM > Dictated by Jewel Oliving Machine Operator I, Elroy Holcomb MD have personally reviewed and interpreted this examination/study. > Interpreting Provider: Elroy Holcomb MD on 11/12/2024 3:38 PM Elroy Holcomb MD IR ORDERABLES Final Resu lt * (ABNORMAL) BASIC METABOLIC PANEL (CALCIUM TOTAL) (11/12/2024 7:11 AM CDT) Only the most recent of7 resultswithin the time period is included. BUN 28(H) 7 - 26 mg/dL 11/12/2024 7:59 AM [facility] Creatinine 7.33(H) 0.71 - 1.16 mg/dL 11/12/2024 7:59 AM [facility] Sodium 138 136 - 145 mmol/L 11/12/2024 7:59 AM [facility] Potassium 3.5 3.5 - 4.5 mmol/L 11/12/2024 7:59 AM [facility] Chloride 97(L) 98 - 107 mmol/L 11/12/2024 7:59 AM [facility] CO2 25 22 - 29 mmol/L 11/12/2024 7:59 AM [facility] Glucose 164(H) 70 - 99 mg/dL 11/12/2024 7:59 AM [facility] Calcium 7.8(L) 8.4 - 10.2 mg/dL 11/12/2024 7:59 AM [facility] Anion Gap 16 6 - 16 11/12/2024 7:59 AM [facility] BUN/Creatinine Ratio 4(L) 7 - 23 11/12/2024 7:59 AM [facility] Osmolality Calculated 295 275 - 295 mOsm/kg 11/12/2024 7:59 AM [facility] eGFR by CKD-EPI 8(L) >=90 mL/min/1.7 3 m2 11/12/2024 7:59 AM [facility] Comment:Estimated Glomerular Filtration Rate (eGFR) calculated using the CKD-EPI Creatinine Equation (2020), per the National Kidney Foundation and [place] [employer] Nephrology recommendations. Blood BLOOD SPECIMEN / Unknown Lab Venipuncture / Unknown 11/12/2024 7:11 AM CDT 11/12/2024 7:44 AM CDT Elroy Holcomb MD LAB - CHEMISTRY ORDERABLES Final Result Performing Organization Address City/[facility]/ZIP Co de Phone Number [address] [address], [facility] [phone] * (ABNORMAL) GLUCOSE - POINT OF CARE (11/12/2024 7:05 AM CDT) Only the most recent of56 resultswithin the time period is included. Glucose WB/POC 193(H) 70 - 99 mg/dL 11/12/2024 7:06 AM CDT [facility] Specimen Type Venous 11/12/2024 7:06 AM CDT [facility] Blood BLOOD SPECIMEN / Unknown 11/12/2024 7:05 AM CDT 11/12/2024 7:06 AM CDT Elroy Holcomb MD LAB - POINT OF CARE ORDERA BLES Final Result Performing Organization Address [facility]/ZIP Co de Phone Number [address] [address], [facility] [phone] * CARDIAC EKG ORDER (10/29/2024 4:31 PM [...] 71(H) <=35 ng/L 10/28/2024 3:13 AM CDT [facility] Delta Troponin I HS 10/28/2024 3:13 AM CDT [facility] Comment:Delta value intentio tito not calculated. Baseline to 1 hour specimen collection interval exceeded. Blood BLOOD SPECIMEN / Unknown Venipuncture / Unknown 10/28/2024 2:31 AM CDT 10/28/2024 2:37 AM CDT us Savanna Mcfarlane MD LAB - CHEMISTRY ORDERABLES Fi nal Result Performing Organization Address City/[facility]/ZIP Co de Phone Number [address] [address], [facility] [phone] * LACTIC ACID BLOOD REFLEX TO REPEAT (10/28/2024 2:31 AM CDT) Only the most recent of5 resultswithin the time period is included. Lactic Acid-Stat 1.9 <=2.0 mmol/L 10/28/2024 3:06 AM CDT [facility] Blood BLOOD SPECIMEN / Unknown Venipuncture / Unknown 10/28/2024 2:31 AM CDT 10/28/2024 2:37 AM CDT us Savanna Mcfarlane MD LAB - CHEMISTRY ORDERABLES Fi nal Result Performing Organization Address [facility] Co de Phone Number [address] [address], [facility] [phone] * XR Chest 2Vw (10/27/2024 11:58 PM CDT) Only the most recent of4 resultswithin the time period is included. Anatomical Region Laterality Modality Chest Digital Radiogra phy 10/28/2024 12:0 2 AM CDT Narrative 10/28/2024 3:32 AM CDT PROCEDURE: XR CHEST 2VW, DATE/TIME OF EXAM: 10/27/2024 11:58 PM, LOCATION [facility] INDICATION: R07.9: Chest pain, unspecified type ADDITIONAL [...] shoulders. > Dictated by Branden Jha MD, (fixed income trading vice president). > Dictated by Jewel Oliving Machine Operator I, Blake Plasencia MD have personally reviewed and interpreted this examination/study. > Interpreting Provider: Blake Plasencia MD on 10/28/2024 3:32 AM Procedure Note Blake Plasencia MD - 10/28/2024 PROCEDURE: XR CHEST 2VW, DATE/TIME OF EXAM: 10/27/2024 11:58 PM, LOCATION [facility] INDICATION: R07.9: Chest pain, unspecified type ADDITIONAL [...] shoulders. > Dictated by Branden Jha MD, (fixed income trading vice president). > Dictated by Jewel Oliving Machine Operator I, Blake Plasencia MD have personally [...] 72(H) <=35 ng/L 10/28/2024 12:49 AM CDT [facility] Blood BLOOD SPECIMEN / Unknown Venipuncture / Unknown 10/27/2024 11:53 PM CDT 10/28/2024 12:12 AM CDT Savanna Mcfarlane MD LAB - CHEMISTRY ORDERABLES Fi nal Result [facility] [address] [place] [address], [facility] [phone] * (ABNORMAL) CBC W AUTO DIFFERENTIAL (10/27/2024 11:53 PM [facility]) Only the most recent of11 resultswithin the time period is included. WBC 7.8 4.0 - 10.7 x10E9/L 10/28/2024 12:26 AM [facility] RBC Count 3.31(L) 4.30 - 5.80 x10E12/L 10/28/2024 12:26 AM [facility] Hemoglobin 9.0(L) 13.3 - 17.5 g/dL 10/28/2024 12:26 AM [facility] Hematocrit 27.9(L) 38.7 - 51.1 % 10/28/2024 12:26 AM [facility] MCV 84.3 80.0 - 98.0 fL 10/28/2024 12:26 AM [facility] MCH 27.2 26.7 - 33.6 pg 10/28/2024 12:26 AM [facility] MCHC 32.3 31.7 - 36.3 g/dL 10/28/2024 12:26 AM [facility] RDW-CV 15.9(H) 11.3 - 14.8 % 10/28/2024 12:26 AM [facility] Platelet Count 187 150 - 420 x10E9/L 10/28/2024 12:26 AM [facility] MPV 10.2 7.8 - 11.4 fL 10/28/2024 12:26 AM [facility] Neutrophil % 67.0 41.0 - 74.0 % 10/28/2024 12:26 AM [facility] Lymphocyte % 16.4(L) 17.0 - 47.0 % 10/28/2024 12:26 AM [facility] Monocyte % 14.0(H) 3.0 - 11.0 % 10/28/2024 12:26 AM [facility] Eosinophil % 1.9 0.0 - 7.0 % 10/28/2024 12:26 AM [facility] Basophil % 0.1 0.0 - 1.6 % 10/28/2024 12:26 AM [facility] Immature Granulocytes % 0.6 0.0 - 1.0 % 10/28/2024 12:26 AM [facility] Neutrophil Absolute 5.23 1.60 - 7.50 x10E9/L 10/28/2024 12:26 AM [facility] Lymphocyte Absolute 1.28 1.00 - 4.40 x10E9/L 10/28/2024 12:26 AM [facility] Monocyte Absolute 1.09(H) 0.15 - 1.00 x10E9/L 10/28/2024 12:26 AM [facility] Eosinophil Absolute 0.15 0.00 - 0.60 x10E9/L 10/28/2024 12:26 AM [facility] Basophil Absolute 0.01 0.00 - 0.13 x10E9/L 10/28/2024 12:26 AM [facility] Blood BLOOD SPECIMEN / Unknown Venipuncture / Unknown 10/27/2024 11:53 PM CDT 10/28/2024 12:13 AM CDT us Savanna Mcfarlane MD LAB - HEMATOLOGY ORDERABLES F inal Result [address] [address], [facility] [phone] * (ABNORMAL) COMPREHENSIVE METABOLIC PANEL (10/27/2024 11:53 PM CDT) Only the most recent of13 resultswithin the time period is included. BUN 34(H) 7 - 26 mg/dL 10/28/2024 12:45 AM [facility] Creatinine 7.86(H) 0.71 - 1.16 mg/dL 10/28/2024 12:45 AM [facility] Sodium 132(L) 136 - 145 mmol/L 10/28/2024 12:45 AM [facility] Potassium 3.5 3.5 - 4.5 mmol/L 10/28/2024 12:45 AM [facility] Chloride 95(L) 98 - 107 mmol/L 10/28/2024 12:45 AM [facility] CO2 25 22 - 29 mmol/L 10/28/2024 12:45 AM [facility] Glucose 104(H) 70 - 99 mg/dL 10/28/2024 12:45 AM [facility] Calcium 8.5 8.4 - 10.2 mg/dL 10/28/2024 12:45 AM [facility] Protein Total 5.6(L) 6.0 - 8.3 g/dL 10/28/2024 12:45 AM [facility] Albumin 2.2(L) 3.4 - 5.0 g/dL 10/28/2024 12:45 AM [facility] Bilirubin Total 0.3 0.2 - 1.2 mg/dL 10/28/2024 12:45 AM [facility] Alkaline Phosphatase 104 40 - 150 U/L 10/28/2024 12:45 AM [facility] ALT 56(H) 5 - 55 U/L 10/28/2024 12:45 AM [facility] AST 48(H) 5 - 34 U/L 10/28/2024 12:45 AM [facility] Anion Gap 12 6 - 16 10/28/2024 12:45 AM [facility] BUN/Creatinine Ratio 4(L) 7 - 23 10/28/2024 12:45 AM [facility] Osmolality Calculated 282 275 - 295 mOsm/kg 10/28/2024 12:45 AM [facility] Albumin/Globulin Ratio 0.6(L) 1.1 - 2.3 10/28/2024 12:45 AM [facility] eGFR by CKD-EPI 7(L) >=90 mL/min/1.7 3 m2 10/28/2024 12:45 AM [facility] Comment:Estimated Glomerular Filtration Rate (eGFR) calculated using the CKD-EPI Creatinine Equation (2020), per the National Kidney Foundation and [place] [employer] Nephrology recommendations. Blood BLOOD SPECIMEN / Unknown Venipuncture / Unknown 10/27/2024 11:53 PM T 10/28/2024 12:12 AM CDT Savanna Mcfarlane MD LAB - CHEMISTRY ORDERABLES Fi nal Result Performing Organization Address City/[facility]/ZIP Co de Phone Number [address] [address], [facility] [phone] * LIPASE BLOOD (10/27/2024 11:53 PM CDT) Only the most recent of3 resultswithin the time period is included. Lipase 41 8 - 78 U/L 10/28/2024 12:45 AM CDT [facility] Blood BLOOD SPECIMEN / Unknown Venipuncture / Unknown 10/27/2024 11:53 PM CDT 10/28/2024 12:12 AM CDT Narrative [facility] - 10/28/2024 12:45 AM CDT Lipase results from the Entellium Alinity analyzer may not be comparable with other methodologies. Savanna Mcfarlane MD LAB - CHEMISTRY ORDERABLES nal Result Performing Organization Address [facility] Co de Phone Number [address] [address], [facility] [phone] * HLA ANTIBODY SCREEN LUM CLASS 2 SAB (10/27/2024 2:40 PM CDT) % PRA 0 11/04/2024 4:03 PM CDT [facility] ([facility]) Class 2 LUM SAB Moderate Risk DQ6 11/04/2024 4:03 PM CDT [facility] ([facility]) Class 2 SAB Test Date [id number] 11/04/2024 4:03 PM CDT [facility] ([facility]) Comment: Methodology - Luminex Bead-Based Immunoassay. This test was developed and its performance characteristics determined by the [facility]. It has not been cleared [...] high complexity clinical laboratory testing. CLIA ID# [id number] Performed at: [facility], [address] [place] [id number] Meter/Relay Technician: Steven Gonzalez, Ph.D., D([facility]), Blood BLOOD SPECIMEN / Unknown No Charge Blood Draw / Unknown 10/27/2024 2:40 PM CDT 11/01/2024 2:41 PM CDT Alan Davenport MD LAB - BLOOD BANK ORDERABLES F inal Result [facility] ([facility]) [address], [place] [address] [place] [address] * HLA ANTIBODY SCREEN LUM CLASS 1 SAB (10/27/2024 2:40 PM CDT) % PRA 0 11/04/2024 4:[address] [facility] ([facility]) Class 1 SAB Test Date [id number] 11/04/2024 4:[address] [facility] ([facility]) Comment: Methodology - Luminex Bead-Based Immunoassay. This test was developed and its performance characteristics determined by the [facility]. It has not been cleared [...] high complexity clinical laboratory testing. CLIA ID# [id number] Performed at: [facility], [address] [place] [id number] Meter/Relay Technician: Steven Gonzalez, Ph.D., D([facility]), Blood BLOOD SPECIMEN / Unknown No Charge Blood Draw / Unknown 10/27/2024 2:40 PM CDT 11/01/2024 2:41 PM CDT us Alan Davenport MD LAB - BLOOD BANK ORDERABLES F inal Result [facility] ([facility]) [address], [place] [address] * (ABNORMAL) PTH INTACT ([facility]) (10/21/2024 1:11 PM CDT) Only the most recent of2 resultswithin the time period is included. PTH Intact 316.8(H) 8.0 - 77.0 pg/mL 10/21/2024 1:56 PM CDT [facility] Blood BLOOD SPECIMEN / Unknown Lab Venipuncture / Unknown 10/21/2024 1:11 PM CDT 10/21/2024 1:23 PM CDT Becky Wilson MD LAB - CHEMISTRY ORDERABLES Fin al Result Performing Organization Address [facility] Co de Phone Number [address] [phone] [phone] * LAB MISC TEST (10/21/2024 1:11 PM CDT) Test Name PHOSPHO-TAU 217 PLASMA 10/25/2024 12:29 PM CDT [facility] Test Result See Scanned Report 10/25/2024 12:29 PM CDT [facility] Comment Ref Lab P[place] 10/25/2024 12:29 PM CDT [facility] Blood BLOOD SPECIMEN / Unknown Lab Venipuncture / Unknown 10/21/2024 1:11 PM CDT 10/21/2024 1:15 PM CDT Becky Wilson MD LAB SEND OUT Final Result Performing Organization Address City/[facility]/ZIP Co de Phone Number [facility] [address] [place] [address] * MAGNESIUM BLOOD (10/21/2024 1:11 PM CDT) Only the most recent of14 resultswithin the time period is included. Magnesium 1.6 1.6 - 2.6 mg/dL 10/21/2024 1:49 PM CDT [facility] Blood BLOOD SPECIMEN / Unknown Lab Venipuncture / Unknown 10/21/2024 1:11 PM CDT 10/21/2024 1:20 PM CDT Becky Wilson MD LAB - CHEMISTRY ORDERABLES Fin al Result Performing Organization Address City/[facility]/ZIP Co de Phone Number [address] [address], [facility] [phone] * AMMONIA (10/21/2024 1:11 PM CDT) Ammonia 30 <=72 umol/L 10/21/2024 1:32 PM CDT [facility] Blood BLOOD SPECIMEN / Unknown Lab Venipuncture / Unknown 10/21/2024 1:11 PM CDT 10/21/2024 1:15 PM CDT Becky Wilson MD LAB - CHEMISTRY ORDERABLES Fin al Result Performing Organization Address [facility] Co de Phone Number [address] [address], [facility] [phone] * CT Head Wo Contrast (10/19/2024 3:03 PM CDT) Only the most recent of4 resultswithin the time period is included. Anatomical Region Laterality Modality Head Computed Tomogra phy 10/19/2024 3:11 PM CDT Impressions 10/19/2024 3:41 PM CDT IMPRESSION: 1.No acute intracranial hemorrhage, territorial infarct, or significant mass effect. Report dictated by Saroj Linda MD, MD (fixed income trading vice president). > Dictated by Jewel Oliving Machine Operator I, Raymundo Hanson MD have personally [...] Report dictated by Saroj Linda MD, MD (fixed income trading vice president). > Dictated by Jewel Oliving Machine Operator I, Raymundo Hanson MD have personally reviewed and interpreted this examination/study. > Interpreting Provider: Raymundo Hanson MD on 10/19/2024 3:41 PM [facility]- CT ORDERABLES Final Result * EKG 12-LEAD (10/19/2024 2:21 PM CDT) Only the most recent of6 resultswithin the time period is included. Pathologist [facility] Ventricular Rate 64 BPM [facility] Atrial Rate 64 BPM [facility] P-R Interval 146 ms [facility] QRS Duration ms 96 ms [facility] Q-T Interval ms 494 ms [facility] QTC Calculation (Bezet) 509 ms [facility] Calculated P [place] 69 degrees [facility] Calculated R [place] -63 degrees [facility] Calculated T [place] -90 degrees [facility] Interpretation EKG NORMAL SINUS RHYTHM LEFT ANTERIOR FASCICULAR BLOCK T WAVE ABNORMALITY, CONSIDER INFEROLATERAL ISCHEMIA PROLONGED QT ABNORMAL ECG . Confirmed by DOUG CAGLE MD ([id number]) on 10/23/2024 11:38:28 PM [facility] 10/19/2024 2:21 PM CDT 10/23/2024 11:38 PM CDT [facility]- ECG ORDERABLES Edite d Result - Final [facility] * (ABNORMAL) B-TYPE NATRIURETIC PEPTIDE (10/17/2024 7:33 PM CDT) Only the most recent of3 resultswithin the time period is included. Pathologist [facility] BNP 471(H) <100 pg/mL 10/17/2024 10:07 PM CDT [facility] Comment: A decision threshold of [...] LAB - CHEMISTRY ORDERABLES Fi nal Result [facility] [address] [place] [address], [facility] [phone] * XR CHEST 1VW PORTABLE (10/09/2024 7:27 PM CDT) Only the most recent of2 resultswithin the time period is included. Anatomical Region Laterality Modality Chest Digital Radiogra phy 10/09/2024 10:4 9 PM CDT Narrative 10/10/2024 1:17 AM CDT PROCEDURE: XR CHEST 1VW PORTABLE, DATE/TIME OF EXAM: 10/09/2024 7:27 PM, LOCATION [facility] INDICATION: R06.02: Short of breath on exertion ADDITIONAL CLINICAL INFORMATION: Ordering Provider Reason For Exam: r/o effusion, pneumonia Technologist Note: Additional: COMPARISON: Chest x-ray from 10/07/2024. FINDINGS/IMPRESSION: There is no focal consolidation, pleural effusion, or pneumothorax.The cardiomediastinal silhouette is normal. No displaced fractures identified. Hardware projecting over thoracic spine. > Dictated by Otis Bocanegra MD (fixed income trading vice president). > Dictated by Jewel Oliving Machine Operator I, Blake Plasencia MD have personally reviewed and interpreted this examination/study. > Interpreting Provider: Blake Plasencia MD on 10/10/2024 1:17 AM Procedure Note Blake Plasencia MD - 10/10/2024 PROCEDURE: XR CHEST 1VW PORTABLE, DATE/TIME OF EXAM: 10/09/2024 7:27PM, LOCATION [facility] INDICATION: R06.02: Short of breath on exertion ADDITIONAL CLINICAL INFORMATION: Ordering Provider Reason For Exam: r/o effusion, pneumonia Technologist Note: Additional: COMPARISON: Chest x-ray from 10/07/2024. FINDINGS/IMPRESSION: There is no focal consolidation, pleural effusion, or pneumothorax.The cardiomediastinal silhouette is normal. No displaced fracturesidentified. Hardware projecting over thoracic spine. > Dictated by Otis Bocanegra MD (fixed income trading vice president). > Dictated by Jewel Oliving Machine Operator I, Blake Plasencia MD have personally reviewed and interpreted this examination/study. > Interpreting Provider: Blake Plasencia MD on 10/10/2024 1:17 AM us Anjali Avelar [facility] O RDERABLES Final Result * (ABNORMAL) BLOOD GASES ABBEY + COOX PANEL (10/09/2024 4:39 PM CDT) Only the most recent of2 resultswithin the time period is included. pH Venous 7.41 7.32 - 7.42 pH 10/09/2024 5:04 PM [facility] pO2 Venous 34(L) 35 - 40 mmHg 10/09/2024 5:04 PM [facility] pCO2 Venous 44 40 - 50 mmHg 10/09/2024 5:04 PM [facility] HCO3 Venous 27.9 20 - 30 mmol/L 10/09/2024 5:04 PM [facility] Base Excess Venous 2.9(H) -2.0 - 2.0 mmol/L 10/09/2024 5:04 PM [facility] Oxyhemoglobin Venous 56.8 % 09/18 5:04 PM [facility] Comment:A^Absorbance Error Deoxyhemoglobin (HHB) Venous % 42.6 % 10/09/2024 5:04 PM [facility] Comment:A^Absorbance Error Methemoglobin <0.8 0.0 - 2.0 % 10/09/2024 5:04 PM [facility] Comment:A^Absorbance Error Carboxyhemoglobin 0.6 0.0 - 2.0 % 2024 5:04 PM [facility] Comment:A^Absorbance Error O2 Content Venous 7.7 Interpret within clinical context ml/dL 10/09/2024 5:04 PM [facility] Hemoglobin by COOX 9.6(L) 12.0 - 17.6 g/dL 10/09/2024 5:04 PM [facility] Comment:A^Absorbance Error O2 Saturation Venous 57(L) >=70 % 09/18 5:04 PM [facility] Comment:A^Absorbance Error FI O2 Mixed Venous 21.0 % 2024 5:04 PM [facility] Blood BLOOD SPECIMEN / Unknown Venipuncture / Unknown 10/09/2024 4:39 PM CDT 10/09/2024 4:56 PM CDT Narrative [facility] - 10/09/2024 5:04 PM CDT Carboxyhemoglobin Normal Concentration: Non-smokers: 0-2%; Smokers: 0-9%; Toxic: >20% [facility] - BLOOD GAS[facility] DERABLES Final Result Performing Organization Address City/[facility]/ZIP Co de Phone Number [address] [address], [facility] [phone] * PHOSPHORUS BLOOD (10/09/2024 4:39 PM CDT) Only the most recent of8 resultswithin the time period is included. Phosphorus 4.9 2.8 - 5.1 mg/dL 10/09/2024 5:29 PM CDT [facility] Blood BLOOD SPECIMEN / Unknown Venipuncture / Unknown 10/09/2024 4:39 PM CDT 10/09/2024 4:58 PM CDT Anjali Avelar [facility] - CHEMISTRY ORDE RABLES Final Result [address] [place] [address], [facility] [phone] * (ABNORMAL) URINALYSIS REFLEX MICROSCOPIC REFLEX CULTURE (10/07/2024 6:16 PM CDT) Color UA Yellow Yellow, Straw 10/07/2024 6:39 PM [facility] Clarity UA Ex. Turbid(A) Clear 10/07/2024 6:39 PM [facility] Glucose UA Normal Normal 10/07/2024 6:39 PM [facility] Bilirubin UA Negative Negative 10/07/2024 6:39 PM [facility] Ketone UA Negative Negative 10/07/2024 6:39 PM [facility] Specific Foley UA 1.015 1.005 - 1.030 10/07/2024 6:39 PM [facility] Blood UA 3+(A) Negative 10/07/2024 6:39 PM [facility] pH UA 6.0 5.0 - 8.0 10/07/2024 6:39 PM [facility] Protein UA 2+(A) Negative 10/07/2024 6:39 PM [facility] Urobilinogen UA Normal Normal mg/dL 10/07/2024 6:39 PM [facility] Nitrite UA Negative Negative 10/07/2024 6:39 PM [facility] Leukocyte Esterase UA 500 MOLLY/uL(A) Negative 10/07/2024 6:39 PM [facility] RBC UA 51-100(A) 0 - 5 # /hpf 10/07/2024 6:39 PM [facility] WBC UA >100(A) 0 - 5 # /hpf 10/07/2024 6:39 PM [facility] Bacteria UA 2+(A) None Seen 10/07/2024 6:39 PM [facility] Squamous Epithelial Cells None Seen 0 - 5 /hpf 10/07/2024 6:39 PM [facility] Transitional Epithelial Cell UA 0-2(A) None Seen /HPF 10/07/2024 6:39 PM [facility] Budding Yeast Moderate(A) None seen /hpf 10/07/2024 6:39 PM CDT [facility] Reflex Status Culture to follow 10/07/2024 6:39 PM CDT [facility] Urine URINE SPECIMEN OBTAINED VIA [employer] URINARY CATHETER / Unknown Collection / Unknown 10/07/2024 6:16 PM CDT 10/07/2024 6:19 PM CDT Narrative [facility] - 10/07/2024 6:39 PM CDT Richard Sylvester MD LAB - URINALYSIS ORDERABLES Kenna vitaly Result [facility] [address] [place] [address], [facility] [phone] * (ABNORMAL) CULTURE URINE (10/07/2024 6:16 PM CDT) Pathologist [facility] Culture Urine 50,000-100,000 CFU/mL Klebsiella pneumoniae(A) MUSHTAQ 10/09/2024 5:54 AM CDT [facility] Urine URINE SPECIMEN OBTAINED VIA [employer] URINARY CATHETER / Unknown Collection / Unknown 10/07/2024 6:16 PM CDT 10/07/2024 6:19 PM CDT Narrative [facility] - 10/09/2024 5:54 AM CDT [...] LAB - MICROBIOLOGY ORDERABLES Fi nal Result [facility] [address] [place] [address], [facility] [phone] * VAS Arterial Multilevel Le (10/05/2024 12:24 PM CDT) Anatomical Region Laterality Modality Intravascular Ul trasound 10/05/2024 11:3 4 AM CDT Narrative Procedure Note Elroy Holcomb MD - 10/05/2024 Guy Messina MD VASCULAR LAB ORDERABLES Edit ed Result - Final * (ABNORMAL) HEMOGLOBIN A1C (09/25/2024 5:06 AM CDT) Hemoglobin A1c 5.8(H) <=5.6 % 09/25/2024 8:19 AM CDT [facility] Estimated Average Glucose 120 mg/dL 09/25/2024 8:19 AM CDT [facility] Comment: HbA1c Interpretation: Normal : < 5.7% Pre-diabetes: 5.7-6.4% Diabetes: Equal to or greater than 6.5% Test results diagnostic of diabetes should be repeated for confirmation. Treatment target values recommended by ADA and other clinical organizations should be used to evaluate metabolic control in patients. Reference: [place] Diabetes Association, Standards of Care in Diabetes [...] LAB - CHEMISTRY ORDERABLES F inal Result [facility] [address] [place] [address], [facility] [phone] * (ABNORMAL) RENAL FUNCTION PANEL (09/24/2024 7:53 PM CDT) Only the most recent of3 resultswithin the time period is included. BUN 42(H) 7 - 26 mg/dL 09/24/2024 8:47 PM [facility] Creatinine 12.22(H) 0.71 - 1.16 mg/dL 09/24/2024 8:47 PM [facility] Sodium 136 136 - 145 mmol/L 09/24/2024 8:47 PM [facility] Potassium 3.9 3.5 - 4.5 mmol/L 09/24/2024 8:47 PM [facility] Chloride 97(L) 98 - 107 mmol/L 09/24/2024 8:47 PM [facility] CO2 24 22 - 29 mmol/L 09/24/2024 8:47 PM [facility] Glucose 93 70 - 99 mg/dL 09/24/2024 8:47 PM [facility] Albumin 1.8(L) 3.4 - 5.0 g/dL 09/24/2024 8:47 PM [facility] Calcium 8.4 8.4 - 10.2 mg/dL 09/24/2024 8:47 PM [facility] Phosphorus 7.0(H) 2.8 - 5.1 mg/dL 09/24/2024 8:47 PM [facility] Anion Gap 15 6 - 16 09/24/2024 8:47 PM CDT [facility] BUN/Creatinine Ratio 3(L) 7 - 23 09/24/2024 8:47 PM CDT [facility] Osmolality Calculated 292 275 - 295 mOsm/kg 09/24/2024 8:47 PM CDT [facility] eGFR by CKD-EPI 4(L) >=90 mL/min/1.7 3 m2 09/24/2024 8:47 PM CDT [facility] Comment:Estimated Glomerular Filtration Rate (eGFR) calculated using the CKD-EPI Creatinine Equation (2020), per the National Kidney Foundation and [place] Society of Nephrology recommendations. Blood BLOOD SPECIMEN / Unknown Lab Venipuncture / Unknown 09/24/2024 7:53 PM CDT 09/24/2024 8:15 PM CDT us Guy Messina MD LAB - CHEMISTRY ORDERABLES F inal Result Performing Organization Address City/[facility]/ZIP Co de Phone Number [address] [address], [place] [phone] * TSH REFLEX FREE T4 (09/24/2024 12:02 PM CDT) Pathologist [facility] TSH 1.567 0.350 - 4.940 uIU/mL 09/24/2024 12:57 PM CDT [facility] Blood BLOOD SPECIMEN / Unknown 09/24/2024 12:02 PM CDT 09/24/2024 12:18 PM CDT us Alexis Rodrigez III, MD LAB - CHEMISTRY ORDERAB LES Final Result [address] [address], [place] [phone] * (ABNORMAL) VITAMIN B1 (09/24/2024 12:02 PM CDT) Vitamin B1 Whole Blood 205(H) 70 - 180 nmol/L 09/27/2024 7:16 PM CDT [employer] ([facility]) Comment: INTERPRETIVE INFORMATION: Vitamin B1, Whole Blood This assay measures the concentration of thiamine diphosphate (TDP), the primary active form of vitamin B1. Approximately 90 percent of vitamin B1 present in whole blood is TDP. Thiamine and thiamine monophosphate, which comprise the remaining 10 percent, are not measured. This test was developed and its performance characteristics determined by [facility] [employer] [place]. It has not been cleared or approved by the US Food and Drug Administration. This test was performed in a CLIA certified laboratory and is intended for clinical purposes. Performed By: [place] [address] Irrigation Installation Specialist: Mk Egan MD, PhD CLIA Number: [id number] Blood BLOOD SPECIMEN / Unknown 09/24/2024 12:02 PM CDT 09/24/2024 12:11 PM CDT Alexis Rodrigez III, MD LAB - CHEMISTRY ORDERAB LES Final Result Performing Organization Address City/[facility]/ZIP Co de Phone Number [facility] [place] [address] [place] [address] * (ABNORMAL) VITAMIN B12 (09/24/2024 12:02 PM CDT) Pathologist [facility] Vitamin B12 1,151(H) 213 - 816 pg/mL 09/24/2024 12:57 PM CDT [facility] Blood BLOOD SPECIMEN / Unknown 09/24/2024 12:02 PM CDT 09/24/2024 12:18 PM CDT Alexis Rodrigez III, MD LAB - CHEMISTRY ORDERAB LES Final Result [address] [address], [facility] [phone] * (ABNORMAL) TROPONIN-I HIGH SENSITIVE (09/24/2024 5:08 AM CDT) Pathologist [facility] Troponin I High Sensitive 83(H) <=35 ng/L 09/24/2024 6:10 AM CDT [facility] Blood BLOOD SPECIMEN / Unknown Lab Venipuncture / Unknown 09/24/2024 5:08 AM CDT 09/24/2024 5:28 AM CDT us Jennifer Winn MD LAB - CHEMISTRY ORDERABLES F inal Result [facility] [address] [place] [address], [facility] [phone] * CT Lumbar Spine Wo Contrast (09/23/2024 [...] pelvis. Report dictated by Branden Jha MD (fixed income trading vice president) 09/23/2024 5:45 PM. > Dictated by Jewel Oliving Machine Operator I, Jana Clark MD have personally reviewed and interpreted this examination/study. > Interpreting Provider: Jana Clark MD on 09/23/2024 6:29 PM Narrative 09/23/2024 6:29 PM CDT PROCEDURE: CT HEAD WO CONTRAST, CT LUMBAR SPINE WO CONTRAST, CT THORACIC SPINE WO CONTRAST, CT CERVICAL SPINE WO CONTRAST, DATE/TIME OF EXAM: 09/23/2024 5:32 PM, LOCATION [facility] INDICATION: W19.XXXA: Fall, initial encounter R41.82: Altered mental status, unspecified altered mental status type ADDITIONAL CLINICAL INFORMATION: Ordering Provider Reason For Exam: r/o bleed, fx (accession [id number]), r/o fx (accession [id number]), r/o fx (accession [id number]), r/o fx (accession [id number]) Technologist Note: None. Additional: 69 year old [...] DATE/TIME OF EXAM: 09/23/2024 5:32 PM, LOCATION [facility] INDICATION: W19.XXXA: Fall, initial encounter R41.82: Altered mental status, unspecified altered mental status type ADDITIONAL CLINICAL INFORMATION: Ordering Provider Reason For Exam: r/o bleed, fx (accession [id number]), r/o fx (accession [id number]), r/o fx (accession [id number]), r/o fx (accession [id number]) Technologist Note: None. Additional: 69 year old [...] pelvis. Report dictated by Branden Jha MD (fixed income trading vice president) 09/23/2024 5:45 PM. > Dictated by Jewel Oliving Machine Operator I, Jana Clark MD have personally [...] pelvis. Report dictated by Branden Jha MD (fixed income trading vice president) 09/23/2024 5:45 PM. > Dictated by Jewel Oliving Machine Operator I, Jana Clark MD have personally reviewed and interpreted this examination/study. > Interpreting Provider: Jana Clark MD on 09/23/2024 6:29 PM Narrative 09/23/2024 6:29 PM CDT PROCEDURE: CT HEAD WO CONTRAST, CT LUMBAR SPINE WO CONTRAST, CT THORACIC SPINE WO CONTRAST, CT CERVICAL SPINE WO CONTRAST, DATE/TIME OF EXAM: 09/23/2024 5:32 PM, LOCATION [facility] INDICATION: W19.XXXA: Fall, initial encounter R41.82: Altered mental status, unspecified altered mental status type ADDITIONAL CLINICAL INFORMATION: Ordering Provider Reason For Exam: r/o bleed, fx (accession [id number]), r/o fx (accession [id number]), r/o fx (accession [id number]), r/o fx (accession [id number]) Technologist Note: None. Additional: 69 year old [...] DATE/TIME OF EXAM: 09/23/2024 5:32 PM, LOCATION [facility] INDICATION: W19.XXXA: Fall, initial encounter R41.82: Altered mental status, unspecified altered mental status type ADDITIONAL CLINICAL INFORMATION: Ordering Provider Reason For Exam: r/o bleed, fx (accession [id number]), r/o fx (accession [id number]), r/o fx (accession [id number]), r/o fx (accession [id number]) Technologist Note: None. Additional: 69 year old [...] pelvis. Report dictated by Branden Jha MD (fixed income trading vice president) 09/23/2024 5:45 PM. > Dictated by Jewel Oliving Machine Operator I, Jana Clark MD have personally [...] pelvis. Report dictated by Branden Jha MD (fixed income trading vice president) 09/23/2024 5:45 PM. > Dictated by Jewel Oliving Machine Operator I, Jana Clark MD have personally reviewed and interpreted this examination/study. > Interpreting Provider: Jana Clark MD on 09/23/2024 6:29 PM Narrative 09/23/2024 6:29 PM CDT PROCEDURE: CT HEAD WO CONTRAST, CT LUMBAR SPINE WO CONTRAST, CT THORACIC SPINE WO CONTRAST, CT CERVICAL SPINE WO CONTRAST, DATE/TIME OF EXAM: 09/23/2024 5:32 PM, LOCATION [facility] INDICATION: W19.XXXA: Fall, initial encounter R41.82: Altered mental status, unspecified altered mental status type ADDITIONAL CLINICAL INFORMATION: Ordering Provider Reason For Exam: r/o bleed, fx (accession [id number]), r/o fx (accession [id number]), r/o fx (accession [id number]), r/o fx (accession [id number]) Technologist Note: None. Additional: 69 year old [...] DATE/TIME OF EXAM: 09/23/2024 5:32 PM, LOCATION [facility] INDICATION: W19.XXXA: Fall, initial encounter R41.82: Altered mental status, unspecified altered mental status type ADDITIONAL CLINICAL INFORMATION: Ordering Provider Reason For Exam: r/o bleed, fx (accession [id number]), r/o fx (accession [id number]), r/o fx (accession [id number]), r/o fx (accession [id number]) Technologist Note: None. Additional: 69 year old [...] pelvis. Report dictated by Branden Jha MD (fixed income trading vice president) 09/23/2024 5:45 PM. > Dictated by Jewel Oliving Machine Operator I, Jana Clark MD have personally [...] erosion. Report dictated by Branden Jha MD, (fixed income trading vice president). > Dictated by Jewel Oliving Machine Operator I, Nicole Bernabe MD have personally reviewed and interpreted this examination/study. > Interpreting Provider: Nicole Bernabe MD on 09/24/2024 9:17 AM Narrative 09/24/2024 9:17 AM CDT PROCEDURE: XR FOOT LEFT 3VW OR MORE, DATE/TIME OF EXAM: 09/23/2024 5:34 PM, LOCATION [facility] INDICATION: W19.XXXA: Fall, initial encounter ADDITIONAL CLINICAL [...] MORE, DATE/TIME OF EXAM: 09/23/2024 5:34PM, LOCATION [facility] INDICATION: W19.XXXA: Fall, initial encounter ADDITIONAL CLINICAL [...] erosion. Report dictated by Branden Jha MD, (fixed income trading vice president). > Dictated by Jewel Oliving Machine Operator I, Nicole Bernabe MD have personally reviewed and interpreted this examination/study. > Interpreting Provider: Nicole Bernabe MD on 09/24/2024 9:17 AM Moon Lewis PA-C DIAGNOSTIC IMAGING ORDERABLES F inal Result * (ABNORMAL) C-REACTIVE PROTEIN (09/23/2024 4:52 PM CDT) Only the most recent of2 resultswithin the time period is included. C-Reactive Protein 1.6(H) <=0.5 mg/dL 09/23/2024 5:42 PM CDT [facility] Blood BLOOD SPECIMEN / Unknown Venipuncture / Unknown 09/23/2024 4:52 PM CDT 09/23/2024 4:56 PM CDT Moon Lewis PA-C LAB - CHEMISTRY ORDERABLES Kenna l Result [address] [address], [facility] [phone] * (ABNORMAL) ERYTHROCYTE SEDIMENTATION RATE (09/23/2024 4:52 PM CDT) Only the most recent of2 resultswithin the time period is included. Erythrocyte Sedimentation Rate Westergren 116(H) 0 - 20 MM/HR 09/23/2024 5:21 PM CDT [facility] Blood BLOOD SPECIMEN / Unknown Venipuncture / Unknown 09/23/2024 4:52 PM CDT 09/23/2024 5:05 PM CDT Moon Lewis PA-C LAB - HEMATOLOGY ORDERABLES Fin al Result [address] [address], [place] [phone] * (ABNORMAL) DIFFERENTIAL MANUAL (09/23/2024 4:52 PM CDT) Only the most recent of3 resultswithin the time period is included. Neutrophil % 78(H) 41 - 74 % 09/23/2024 5:33 PM CDT [facility] Lymphocyte % 10(L) 17 - 47 % 09/23/2024 5:33 PM CDT [facility] Monocyte % 10 3 - 11 % 09/23/2024 5:33 PM [facility] Eosinophil % 1 0 - 7 % 09/23/2024 5:33 PM [facility] Metamyelocyte % 1(H) 0% % 5:33 PM [facility] Neutrophil Absolute 8.66(H) 1.60 - 7.50 x10E9/L 09/23/2024 5:33 PM [facility] Lymphocyte Absolute 1.11 1.00 - 4.40 x10E9/L 09/23/2024 5:33 PM [facility] Monocyte Absolute 1.11(H) 0.15 - 1.00 x10E9/L 09/23/2024 5:33 PM [facility] Eosinophil Absolute 0.11 0.00 - 0.60 x10E9/L 09/23/2024 5:33 PM [facility] RBC Morphology REVIEWED 09/23/2024 5:33 PM [facility] Microcytosis MODERATE(A) (none) 09/23/2024 5:33 PM [facility] Blood BLOOD SPECIMEN / Unknown Venipuncture / Unknown 09/23/2024 4:52 PM CDT 09/23/2024 5:05 PM CDT us Moon Lewis PA-C LAB - HEMATOLOGY ORDERABLES Fin al Result [facility] [address] [place] [address], [facility] [phone] * (ABNORMAL) CBC W/O DIFFERENTIAL (09/16/2024 1:01 AM CDT) Only the most recent of10 resultswithin the time period is included. Pathologist [facility] WBC 9.3 4.0 - 10.7 x10E9/L 09/16/2024 1:43 AM [facility] RBC Count 3.37(L) 4.30 - 5.80 x10E12/L 09/16/2024 1:43 AM [facility] Hemoglobin 9.5(L) 13.3 - 17.5 g/dL 09/16/2024 1:43 AM [facility] Hematocrit 28.3(L) 38.7 - 51.1 % 09/16/2024 1:43 AM [facility] MCV 84.0 80.0 - 98.0 fL 09/16/2024 1:43 AM [facility] MCH 28.2 26.7 - 33.6 pg 09/16/2024 1:43 AM [facility] MCHC 33.6 31.7 - 36.3 g/dL 09/16/2024 1:43 AM [facility] RDW-CV 15.7(H) 11.3 - 14.8 % 09/16/2024 1:43 AM [facility] Platelet Count 205 150 - 420 x10E9/L 09/16/2024 1:43 AM [facility] MPV 10.3 7.8 - 11.4 fL 09/16/2024 1:43 AM [facility] Blood BLOOD SPECIMEN / Unknown Lab Venipuncture / Unknown 09/16/2024 1:01 AM CDT 09/16/2024 1:40 AM CDT us Alexis Rodrigez III, MD LAB - HEMATOLOGY ORDERA BLES Final Result [address] [address], [facility] [phone] * VANCOMYCIN LEVEL RANDOM (09/15/2024 4:10 PM CDT) Only the most recent of3 resultswithin the time period is included. Vancomycin Random 31.2 Therapeutic Ranges not established for random specimens ug/mL 09/15/2024 6:00 PM T [facility] Blood BLOOD SPECIMEN / Unknown Lab Venipuncture / Unknown 09/15/2024 4:10 PM CDT 09/15/2024 4:51 PM CDT Narrative [facility] - 09/15/2024 6:00 PM CDT See institution protocol. us Aureliano Pierce MD LAB - CHEMISTRY ORDERAB LES Final Result [address] [address], [place] [phone] * LACTIC ACID BLOOD (09/14/2024 3:32 PM CDT) Only the most recent of4 resultswithin the time period is included. Pathologist [facility] Lactic Acid-Stat 2.0 <=2.0 mmol/L 09/14/2024 4:17 PM CDT [facility] Blood BLOOD SPECIMEN / Unknown Lab Venipuncture / Unknown 09/14/2024 3:32 PM CDT 09/14/2024 3:51 PM CDT us Alexis Rodrigez III, MD LAB - CHEMISTRY ORDERAB LES Final Result Performing Organization Address [facility]/ZIP Co de Phone Number [address] [address], [place] [phone] * (ABNORMAL) HGB HCT PANEL (09/14/2024 1:24 PM CDT) Only the most recent of2 resultswithin the time period is included. [facility] Hemoglobin 8.7(L) 13.3 - 17.5 g/dL 09/14/2024 1:41 PM CDT [facility] Hematocrit 25.6(L) 38.7 - 51.1 % 09/14/2024 1:41 PM CDT [facility] Blood BLOOD SPECIMEN / Unknown Venipuncture / Unknown 09/14/2024 1:24 PM CDT 09/14/2024 1:30 PM CDT us Alexis Rodrigez III, MD LAB - HEMATOLOGY ORDERA BLES Final Result Performing Organization Address City/[facility]/ZIP Co de Phone Number [address] [address], [place] [phone] * PATHOLOGY TISSUE (09/14/2024 11:45 AM CDT) Case Report Surgical Pathology Report Case: [id number] Authorizing Provider: Elroy Holcomb MD Collected: 09/14/2024 11:45 AM Ordering Location: [facility] Received: 09/14/2024 12:47 PM Pathologist: Charmaine Myrick MD Specimen: Toe, Left, Left Great Toe 09/16/2024 11:40 AM CDT [facility] Final Diagnosis Toe, left great, amputation (A): - Skin ulceration and necrosis - Acute osteomyelitis - Bone margin negative for acute inflammation - Skin and soft tissue margin appears viable 09/16/2024 11:40 AM CDT [facility] at 1140 CDT Microscopic Description and Comment Microscopic examination substantiates the diagnosis. 09/16/2024 11:40 AM CDT [facility] Clinical History The patient is a 69-year-old man with first toe dry gangrene and history of PAD. 09/16/2024 11:40 AM CDT [facility] Gross Description The requisition [...] hemorrhage. There are no additional gross lesions. Licensed Insurance Agent sections are submitted as follows: A1-skin and soft tissue to resection margin, medial and dorsal surfaces A2-bony resection margin, decalcified A3-partial proximal cross-section with surrounding mummification, decalcified IKD 09/16/2024 11:40 AM CDT [facility] Pathologist Location at [facility] 09/16/2024 11:40 AM CDT [facility] Disclaimer The performance characteristics of all immunohistochemical and indirect immunofluorescence stains (if any) cited in this report were determined by the Histopathology Laboratory of [facility]. Some of these tests were [...] attending (teaching) pathologist. 09/16/2024 11:40 AM CDT [facility] Embedded Images 09/16/2024 11:40 AM CDT [facility] Amputation, Traumatic (Gross Only) (Toe, Left) 09/14/2024 11:45 AM CDT 09/14/2024 12:47 PM CDT Comment:Pre-op diagnosis: Toe gangrene (HCC) [I96] us Elroy Holcomb MD LAB - PATHOLOGY/CYTOLOGY O RDERABLES Final Result [facility] [address] [place] [address], [facility] [phone] * Peripheral Nerve Block (09/14/2024 10:38 AM [...] fungus isolated MUSHTAQ 10/11/2024 8:05 AM CDT [facility] Fungus Stain No yeast or hyphae seen 10/11/2024 8:05 AM CDT [facility] Microbiology PERITONEAL DIALYSATE SPECIMEN / Unknown Collection / Unknown 09/13/2024 8:08 PM CDT 09/13/2024 8:10 PM CDT Alexis Rodrigez III, MD LAB - MICROBIOLOGY PK ZENG Final Result [facility] [address] [place] [address], [facility] [phone] * DIFFERENTIAL MANUAL FLUID (09/13/2024 8:08 PM CDT) Fluid Source Peritoneal 09/13/2024 9:03 PM CDT [facility] Body Fluid Total Cell Count 100 x10E6/L 09/13/2024 9:03 PM CDT [facility] Neutrophils Fluid Percent 11 % 09/13/2024 9:03 PM CDT [facility] Lymphocytes Fluid Percent 6 % 09/13/2024 9:03 PM CDT [facility] Macrophages Fluid Percent 79 % 09/13/2024 9:03 PM CDT [facility] Mesothelial Cells Fluid Percent 4 % 09/13/2024 9:03 PM CDT [facility] Fluid PERITONEAL FLUID / Unknown Collection / Unknown 09/13/2024 8:08 PM CDT 09/13/2024 8:10 PM CDT Narrative [facility] - 09/13/2024 9:03 PM CDT No reference ranges established for body fluid differential cell counts. The test results must be integrated into the clinical context for interpretation. us Alexis Rodrigez III, MD LAB - BODY FLUID ORDERA BLES Final Result Performing Organization Address City/[facility]/ZIP Co de Phone Number [facility] [address] [place] [address], [place] [phone] * CULTURE FLUID+GRAM STAIN (09/13/2024 8:08 PM CDT) Culture No growth MUSHTAQ 09/17/2024 12:38 AM CDT [facility] Gram Stain Light Polymorphonuclear cells 09/17/2024 12:38 AM CDT [facility] Gram Stain No organisms seen 025 12:38 AM CDT [facility] Other PERITONEAL DIALYSATE SPECIMEN / Unknown Collection / Unknown 09/13/2024 8:08 PM CDT 09/13/2024 8:10 PM CDT us Alexis Rodrigez III, MD LAB - MICROBIOLOGY ORDE RABLES Final Result [facility] [address] [place] [address], [facility] [phone] * CULTURE ANAEROBE (09/13/2024 8:08 PM CDT) Culture No anaerobic organisms isolated MUSHTAQ 09/19/2024 8:26 AM CDT [facility] Microbiology PERITONEAL DIALYSATE SPECIMEN / Unknown Collection / Unknown 09/13/2024 8:08 PM CDT 09/13/2024 8:11 PM CDT Alexis Rodrigez III, MD LAB - MICROBIOLOGY ORDLien ZENG Final Result Performing Organization Address City/[facility]/ZIP Co de Phone Number [facility] [address] [place] [address], [facility] [phone] * CELL COUNT W DIFFERENTIAL FLUID (09/13/2024 8:08 PM CDT) Fluid Source Peritoneal 09/13/2024 9:03 PM CDT [facility] Fluid Appearance CLEAR 09/13/2024 9:03 PM CDT [facility] Fluid Color YELLOW 09/13/2024 9:03 PM CDT [facility] Total Nucleated Cells Fluid 279 Reference Range Not Established x10E6/L 09/13/2024 9:03 PM CDT [facility] RBC Count Fluid <2,000 Reference Range Not Established x10E6/L 09/13/2024 9:03 PM CDT [facility] Fluid PERITONEAL FLUID / Unknown Collection / Unknown 09/13/2024 8:08 PM CDT 09/13/2024 8:10 PM CDT Narrative [facility] - 09/13/2024 9:03 PM CDT No reference ranges established for body fluid cell counts. Any reference ranges provided are derived from published literature. The test results must be integrated into the clinical context for interpretation. Alexis Rodrigez III, MD LAB - BODY FLUID ORDERA BLES Final Result [facility] [address] [place] [address], [place] [phone] * VAS Bilateral Venous Duplex Le (09/13/2024 4:34 PM CDT) Anatomical Region Laterality Modality Lower Extremity Ultrasound 09/13/2024 4:18 PM CDT Narrative Procedure Note Lalit Castanon MD - 09/13/2024 Alexis Rodrigez III, MD VASCULAR LAB ORDERABLES Edited Result - Final * SARS-COV-2 (COVID-19) RAPID (09/13/2024 6:02 AM CDT) COVID-19 PCR Not detected Not detected 09/14/19 6:36 AM CDT [facility] Microbiology SPECIMEN FROM NASOPHARYNGEAL STRUCTURE / Unknown Collection / Unknown 09/13/2024 6:02 AM CDT 09/13/2024 6:04 AM CDT Narrative [facility] - 09/13/2024 6:36 AM CDT The [...] LAB - MICROBIOLOGY ORDERABLE S Final Result [address] [address], [facility] [phone] * TRANSFUSE RED BLOOD CELL LEUKOREDUCED UNIT(S) [...] > Dictated by Sera Chowdhury Dr, MD (fixed income trading vice president). Terry Leigh MD have personally reviewed and interpreted this examination/study. > Interpreting Provider: Terry Ramos MD on 09/13/2024 9:42 AM Narrative 09/13/2024 9:42 AM CDT PROCEDURE: CT ANGIO AORTA FOR DISSECTION, DATE/TIME OF EXAM: 09/13/2024 12:28 AM, LOCATION [facility] INDICATION: R10.9: Abdominal pain, unspecified abdominal location [...] DATE/TIME OF EXAM: 09/13/2024 12:28 AM, LOCATION [facility] INDICATION: R10.9: Abdominal pain, unspecified abdominal location [...] > Dictated by Sera Chowdhury Dr, MD (fixed income trading vice president). I, Terry Ramos MD have personally reviewed and interpreted this examination/study. > Interpreting Provider: Terry Ramos MD on 09/13/2024 9:42 AM Yuriy Lopez MD CT ORDERABLES Final Result * PREPARE (CROSSMATCH) RBC UNIT(S), 1 Units (09/12/2024 11:30 PM CDT) Unit Description AS1 LR PRBC [facility] Unit ABO O [facility] Unit Rh NEG [facility] Product Number R43 [facility] B[facility] Unit Donor # [id number] [facility] Unit Status transfused [facility] Product Code [id number] [facility] Blood Type Barcode 9500 [facility] Expiration Date [id number] S BLOOD BANK LAB Blood Bank BLOOD SPECIMEN / Unknown 09/12/2024 11:30 PM CDT 09/12/2024 11:37 PM CDT Yuriy Lopez MD LAB - BLOOD BANK ORDERABLES Final Result Performing Organization Address [facility] Co de Phone Number [facility] [address] [place] [address], [place] [phone] * TYPE + SCREEN PANEL (09/12/2024 11:30 PM CDT) Antibody Screen NEG 12:16 AM CDT [facility] ABO Rh O NEG 09/13/2024 12:16 AM CDT [facility] Blood Bank BLOOD SPECIMEN / Unknown Venipuncture / Unknown 09/12/2024 11:30 PM CDT 09/12/2024 11:37 PM CDT Yuriy Lopez MD LAB - BLOOD BANK ORDERABLES Final Result Performing Organization Address [facility] Co de Phone Number [facility] [address] [place] [address], [place] [phone] * CULTURE BLOOD (09/12/2024 10:00 PM CDT) Only the most recent of4 resultswithin the time period is included. Culture No growth day 5 [facility] 09/18/2024 1:30 AM CDT [facility] MICROBIOLOGY Blood PERIPHERAL BLOOD / Unknown Venipuncture / Unknown 09/12/2024 10:00 PM CDT 09/12/2024 10:21 PM CDT Yuriy Lopez MD LAB - MICROBIOLOGY ORDERABLE S Final Result Performing Organization Address [facility] Co de Phone Number [facility] MICROBIOLOGY [address] [place] [address], [facility] [phone] * VAS Bilateral Venous Mapping (09/07/2024 2:24 [...] thickening. Report dictated by Freddie Durham MD, (Jewel Oliving Machine Operator). I, Junior Hurley MD have personally [...] thickening. Report dictated by Freddie Durham MD, (Jewel Oliving Machine Operator). I, Junior Hurley MD have personally reviewed and interpreted this examination/study. > Interpreting Provider: Junior Hurley MD on 56:26 AM Charmaine Khalil MD CT ORDERABLES Final Result * (ABNORMAL) POTASSIUM WHOLE BLD (09/01/2024 3:54 PM CDT) Potassium Whole Blood 3.1(L) 3.5 - 5.5 mmol/L 09/01/2024 4:05 PM CDT [facility] Blood WHOLE BLOOD SPECIMEN / Unknown Venipuncture / Unknown 09/01/2024 3:54 PM CDT 09/01/2024 3:57 PM CDT Jaqueline Crews WRISTER-FRAME NAILER LAB - CHEMISTRY ORDERABL ES Final Result [facility] [address] [place] [address], [facility] [phone] * CCL STAGED PERC CORONARY INTERVENTION, CCL [...] DAPT Cardiology clinic f/u us Jaqueline Crews WRISTER-FRAME NAILER CV CARDIAC CATH CUPID [facility] Final Result * (ABNORMAL) IRON + TRANSFERRIN PANEL (08/19/2024 1:41 AM CDT) Iron 40(L) 50 - 175 ug/dL 08/19/2024 2:17 AM CDT [facility] Transferrin 116(L) 174 - 382 mg/dL 08/19/2024 2:17 AM CDT [facility] Transferrin Saturation % 28 16 - 50 % 08/19/2024 2:17 AM CDT [facility] TIBC Calculated 145(L) 240 - 450 ug/dL 08/19/2024 2:17 AM CDT [facility] Blood BLOOD SPECIMEN / Unknown Lab Venipuncture / Unknown 08/19/2024 1:41 AM CDT 08/19/2024 2:01 AM CDT Hannah Goodman MD LAB - CHEMISTRY ORDERABLES F inal Result Performing Organization Address City/[facility]/ZIP Co de Phone Number [address] [address], [facility] [phone] * (ABNORMAL) FERRITIN (08/19/2024 1:41 AM CDT) Ferritin 560(H) 22 - 275 ng/mL 08/19/2024 2:35 AM CDT [facility] Blood BLOOD SPECIMEN / Unknown Lab Venipuncture / Unknown 08/19/2024 1:41 AM CDT 08/19/2024 2:01 AM CDT Hannah Goodman MD LAB - CHEMISTRY ORDERABLES F inal Result [address] [address], [place] [phone] * VITAMIN D 25-HYDROXY (08/19/2024 1:23 AM CDT) Vitamin D, 25 Hydroxy 36.2 30.0 - 80.0 ng/mL 08/19/2024 2:24 AM CDT [facility] Comment: The recommendations for 25-Hydroxy Vitamin [...] LAB - CHEMISTRY ORDERABLES F inal Result [place] [id number] [place] [address], [facility] [phone] * CCL PERIPHERAL ANGIOGRAM (08/18/2024 2:33 PM CDT) Anatomical Region Laterality Modality X-Ray Angiograph y Narrative 08/19/2024 2:24 PM CDT Left leg angiogram showed left AT severe diffuse disease with multiple subtotal occlusion and left PT severe diffuse disease with COURTESY BUS DRIVER of distal PT without clear reconstitution. Successful [...] 0.018 CXI microcatheter with multiple wires(Command 18/command 14/Track Repair Laborer 200) to get to great toe branch of dorsalis pedis using corporate pilot [address]. - the AT-DP lesion was dilated with balloons mentioned in figure. - We turn our attention to PT. We crossed the PT COURTESY BUS DRIVER with 0.018 CXI microcatheter with multiple wires (command 18, command 14, Track Repair Laborer 200) and able to go to lateral [...] using angiography. Left Posterior Tibial: Ost L JOB PLACEMENT OFFICER to Dist L JOB PLACEMENT OFFICER lesion is 100% stenosed. Stenosis was measured using angiography. Intervention Ost L ROSETTA to Dist L ROSETTA lesion: Angioplasty: Angioplasty independent of stent deployment was performed using a standard balloon. The balloon used was [employer] Emrg Mr Wh 1.5Mm 144Cm 15Mm 2. [...] 10% residual stenosis post intervention. Ost L JOB PLACEMENT OFFICER to Dist L JOB PLACEMENT OFFICER lesion: Angioplasty: Angioplasty independent of stent [...] of Plavix. -recommend close follow up with recovery room nurse and follow up with me in clinic with JOSIANE/TBI. Hannah Goodman MD CV INVASIVE VASCULAR AND IR CUPID PROC Final Result * ACT LR - POCT ([facility]) (08/18/2024 2:08 PM CDT) Only the most recent of4 resultswithin the time period is included. [facility] ACT LR 231 See result comments sec 08/19/2024 9:02 AM CDT [facility] Blood BLOOD SPECIMEN / Unknown 08/18/2024 2:08 PM CDT 08/19/2024 9:02 AM CDT Narrative [facility] - 08/19/2024 9:02 AM CDT ACT-LR [employer]rapeutics ranges are: Cardiac finishing lab technician = 200-300 seconds Sheath pull [...] COAGULATION ORDERABLES Final Result Performing Organization Address [facility] Co de Phone Number [facility] [address] [place] [address], [place] [phone] * HEPATITIS C ANTIBODY (06/16/2024 4:15 PM CDT) Hepatitis C Antibody Non-react sylvie Non-reac tive 06/16/2024 5:50 PM CDT [facility] Comment:Hepatitis C Antibody screen indicates no [...] ORDERABLES Fi nal Result Performing Organization Address City/[facility]/ZIP Co de Phone Number [facility] [address] [place] [address], [place] [phone] from Last 3 Months or Most Recently Relevant to Health Maintenance Insurance [employer] MEDICARE ADV * Guarantor: GRACE INTERIANO Account Type Relation to Patient Date of Phone Billing Address Personal/Family [address] [place] [address] * Guarantor: GRACE INTERIANO Account Type Relation to Patient Date of Phone Billing Address Personal/Family [address] [place] [address] Advance Directives * Full Code (Latest Code [...] 3:16 PM 08/19/2024 4:36 PM Care Teams Picture Enlarger Relationship Specialty Start Date End Date Jfef Strickland MD [address] [place] [address] PCP - General 03/05/18 [place] [address] [address] [place] [address] Orthopedic Surgery 03/28/17
--- OUTSIDE RECORDS SUMMARY | 2024-11-16 21:58 | XMS_ITS | Encounter Summary ---
Author Organization [facility] Address [address] [place] [address] Care Team Providers Care Stratigraphy Teacher Name Role Phone Deandre Bojorquez MD Unavailable [phone] Jeff Strickland MD Primary Care Provider [phone] Encounter Details Date Type Department Care Team (Late st Contact Info) Description 09/10/2024 Telephone [facility] - Centralized Scheduling [facility] [place] [address] Niraj Turner MD [facility] [place] [address] Social History Tobacco Use Types Packs/Day Years [...] and heating? Not hard at all 09/14/2024 [facility] [place] of Occupat [facility] - Occupational Stress Questionnaire Answer Date [...] living in a usp (including now)? No 09/14/2024 Sex and Gender Information Value Date Recorded Sex Assigned at Male 07/02/2021 2:37 PM CDT Legal Sex Male 10:14 PM CORPORATE SECURITY MANAGER Gender Identity Male 07/02/2021 2:37 PM [...] Office Visit [facility] - Endocrinology [address] [place] [address], [place] [phone] Marbin Flores MD [address] [facility] DIV OF ABD TR[place] [address] Niraj Turner MD [address] [place] [address] [place] [address] 2025 1:00 PM CORPORATE SECURITY MANAGER Office Visit [facility] - Neurology [address] [place] [address], [place] [address] Becky Wilson MD [address] [place] [phone] documented as of this encounter Visit Diagnoses Not on filedocumented in this encounter Additional Health Concerns Infection Onset Date Last Indicated Resolved Time COVID-19 Under Investigation 09/13/2024 09/13/2024 09/13/2024 6:36 AM CDT documented as of this encounter Care Teams Stratigraphy Teacher Relationship Specialty Start Date End Date Jeff Strickland MD [address] [place] [address] PCP - General 03/05/18 [place] [address] [facility] [address] [place] [address] Orthopedic Surgery 03/28/17 documented as of this encounter
--- OUTSIDE RECORDS SUMMARY | 2024-11-16 21:58 | XMS_ITS | Encounter Summary ---
Author Organization [facility] Address [address] [facility] [place] [address] Care Team Providers Care Yard Crane Operator Name Role Phone Deandre Bojorquez MD Unavailable [phone] Jeff Strickland MD Primary Care Provider [phone] Encounter Details Date Type Department Care Team (Late st Contact Info) Description 11/12/2024 Orders Only [facility] [address] [place] [address] Griffin Rodriguez MD [address] [facility] DIV OF [facility] [address] [place] [phone] Social History Tobacco Use Types Packs/Day Years [...] Recorded Patient Health Questionnaire-2 Score 6 10/05/2024 [facility] - Occupational [...] PM CDT Legal Sex Male 10:14 PM SURVEY DIRECTOR Gender Identity Male 07/02/2021 2:37 PM [...] Office Visit [facility] - Endocrinology [address] [place] [address], [place] [address] Marbin Flores MD [address] [facility] DIV [place] [address] Niraj Turner MD [address] [place] [address] 2L [place] [address] 2025 1:00 PM SURVEY DIRECTOR Office Visit [facility] - Neurology [address] [place] [address], [place] [address] Becky Wilson MD [address] [place] [phone] documented as of this encounter Visit Diagnoses Not on filedocumented in this encounter Care Teams Yard Crane Operator Relationship Specialty Start Date End Date Jeff Strickland MD [address] [place] [address] PCP - General 03/05/18 [place] [address] [address] [address] Orthopedic Surgery 03/28/17 documented as of this encounter
--- OUTSIDE RECORDS SUMMARY | 2024-11-16 21:58 | XMS_ITS | Encounter Summary ---
Author Organization [facility] Address [address] [place] [address] Care Team Providers Care Wellness Rn Name Role Phone Deandre Bojorquez MD Unavailable [phone] Jeff Strickland MD Primary Care Provider [phone] Encounter Details Date Type Department Care Team (Late st Contact Info) Description 03/12/2024 Lab Requisition [facility] [address] [place] [phone] Alan Davenport MD [facility]1 [facility] OF [place] [address] Social History Tobacco Use Types Packs/Day Years Used Date Smoking Tobacco: Never Smokeless Tobacco: Never Alcohol Use Standard Drinks/Week Comments Not Currently 0 (1 standard drink = 0.6 oz pur e alcohol) socially in past Sex and Gender Information Value Date Recorded Sex Assigned at Male 07/02/2021 2:37 PM CDT Legal Sex Male 10:14 PM RESEARCH SOFTWARE ENGINEER Gender Identity Male 07/02/2021 2:37 PM [...] Description 12/06/2024 10:40 AM CDT [facility] [address] [place] [address], [place] [address] Marbin Flores MD [address] [facility] DIV [place] [address] Niraj Turner MD [address] [place] [address] 2L Div [place] [address] 2025 1:00 PM RESEARCH SOFTWARE ENGINEER Office Visit [facility] - Neurology [address] [place] [address], [place] [address] Becky Wilson MD [address] [place] [phone] documented as of this encounter Procedures Procedure Name Priority Date/Time Associated Diagnosis Comments HOLD HLA SPECIMEN Routine 03/05/2024 1:4 0 PM RESEARCH SOFTWARE ENGINEER documented in this encounter Results * HOLD HLA SPECIMEN (03/05/2024 1:40 PM RESEARCH SOFTWARE ENGINEER) Hold HLA Specimen 03/12/2024 3:00 PM RESEARCH SOFTWARE ENGINEER [facility] Comment:The Hold HLA specime n has been received into the lab and will be held for 5 years at 4 degrees. Blood BLOOD SPECIMEN / Unknown 03/05/2024 1:40 PM RESEARCH SOFTWARE ENGINEER 03/12/2024 1:40 PM RESEARCH SOFTWARE ENGINEER Alan Davenport MD LAB - BLOOD BANK ORDERABLES F inal Result [facility] [address] documented in this encounter Visit Diagnoses Not on filedocumented in this encounter Additional Health Concerns Infection Onset Date Last Indicated Resolved Time COVID-19 Under Investigation 09/13/2024 09/13/2024 09/13/2024 6:36 AM CDT documented as of this encounter Care Teams Wellness Rn Relationship Specialty Start Date End Date Jeff Strickland MD [address] [place] [address] PCP - General 03/05/18 [place] [address] [address] Orthopedic Surgery 03/28/17 documented as of this encounter
--- OUTSIDE RECORDS SUMMARY | 2024-11-16 21:58 | XMS_ITS | Encounter Summary ---
Author Organization [facility] Address [facility] [place] [address] Care Team Providers Care Recycler Forklift Driver Truck Driver Name Role Phone Deandre Bojorquez MD Unavailable [phone] Jeff Strickland MD Primary Care Provider [phone] Encounter Details Date Type Department Care Team (Late st Contact Info) Description 04/10/2023 Lab Requisition [facility] [address] [place] [phone] Alan Davenport MD [facility] [place] [address] Social History Tobacco Use Types Packs/Day Years Used Date Smoking Tobacco: Never Smokeless Tobacco: Never Alcohol Use Standard Drinks/Week Comments Not Currently 0 (1 standard drink = 0.6 oz pur e alcohol) socially in past Sex and Gender Information Value Date Recorded Sex Assigned at Male 07/02/2021 2:37 PM CDT Legal Sex Male 10:14 PM MELTING OPERATOR Gender Identity Male 07/02/2021 2:37 PM [...] oMnique Suárez RN * Does person have serious [...] Description 12/06/2024 10:40 AM CDT [facility] [address] [place] [address], [place] [address] Marbin Flores MD [address] [facility] DIV [place] [address] Niraj Turner MD [address] [place] [address] 2L [place] [address] 2025 1:00 PM MELTING OPERATOR Office Visit [facility] - Neurology [address] [place] [address], [place] [address] Becky Wilson MD [address] [place] [phone] documented as of this encounter Procedures Procedure Name Priority Date/Time Associated Diagnosis Comments HOLD HLA SPECIMEN Routine 04/02/2023 3:0 1 PM MELTING OPERATOR documented in this encounter Results * HOLD HLA SPECIMEN (04/02/2023 3:01 PM MELTING OPERATOR) Hold HLA Specimen 04/10/2023 4:01 PM MELTING OPERATOR [facility] Comment:The Hold HLA specime n has been received into the lab and will be held for 5 years at 4 degrees. Blood BLOOD SPECIMEN / Unknown 04/02/2023 3:01 PM MELTING OPERATOR 04/10/2023 3:01 PM MELTING OPERATOR Alan Davenport MD LAB - BLOOD BANK ORDERABLES F inal Result [facility] [address] documented in this encounter Visit Diagnoses Not on filedocumented in this encounter Additional Health Concerns Infection Onset Date Last Indicated Resolved Time COVID-19 Under Investigation 09/13/2024 09/13/2024 09/13/2024 6:36 AM CDT documented as of this encounter Care Teams Recycler Forklift Driver Truck Driver Relationship Specialty Start Date End Date Jeff Strickland MD [address] [place] [address] PCP - General 03/05/18 [place] [address] [address] Orthopedic Surgery 03/28/17 documented as of this encounter
--- OUTSIDE RECORDS SUMMARY | 2024-11-16 21:58 | XMS_ITS | Encounter Summary ---
Author Organization [facility] Address [address] [place] [address] Care Team Providers Care Eyelet Machine Operator Name Role Phone Jeff Strickland MD Primary Care Provider Chan Nicholas MD Unavailable Alan Mccall MD Unavailable [phone] Pepito Haro MD PhD Unavailable [phone] Solange Guido MD Unavailable [phone] Encounter Details Date Type Department Care Team (Late st Contact Info) Description 07/26/2024 Orders Only [facility] Health Information Management [address] [place] [address] Scanning, Provider Social History Tobacco Use Types Packs/Day Years Used Date Smoking Tobacco: Never Smokeless Tobacco: Never Alcohol Use Standard Drinks/Week Comments Yes 0 (1 standard drink = 0.6 oz pur e alcohol) rarely [facility] Utilities Answer Date Recorded In the past 12 months has [employer] electric, gas, oil, or water company threatened [...] on file Legal Sex Male 2:23 AM SHINGLE SAWYER Gender Identity Not on file Sexual Orientation [...] on filedocumented in this encounter Care Teams Eyelet Machine Operator Relationship Specialty Start Date End Date Jeff Strickland MD [address] [place] [address] [address] PCP - General Family Medicine 04/02/18 Chan Nicholas MD [facility] STATE [address] [address] Consulting Physician Gastroenterology 11/24/18 Alan Mccall MD [address] [place] [address] [address] Referring Physician Nephrology 11/24/18 Pepito Haro MD PhD [facility] [address] [place] [phone] Consulting Physician Neurosurgery 12/03/22 Solange Guido MD [address] [facility] [address] [place] [address] Referring Physician Cardiovascular Disease 07/23/23 documented as of this encounter
--- OUTSIDE RECORDS SUMMARY | 2024-11-16 21:58 | XMS_ITS | Encounter Summary ---
Author Organization [facility] Address [address] [place] [address] Care Team Providers Care Mammographer Name Role Phone Deandre Bojorquez MD Unavailable [phone] Jeff Strickland MD Primary Care Provider [phone] Encounter Details Date Type Department Care Team (Late st Contact Info) Description 06/25/2024 Lab Requisition [facility] MAIN LAB [address] [place] [phone] Alan Davenport MD [facility] OF [place] [address] Social History Tobacco Use Types Packs/Day Years Used Date Smoking Tobacco: Never Smokeless Tobacco: Never Alcohol Use Standard Drinks/Week Comments Not Currently 0 (1 standard drink = 0.6 oz pur e alcohol) socially in past Sex and Gender Information Value Date Recorded Sex Assigned at Male 07/02/2021 2:37 PM CDT Legal Sex Male 10:14 PM FREIGHT WEIGHER Gender Identity Male 07/02/2021 2:37 PM CDT [...] Office Visit [facility] - Endocrinology [address] [place] [address], [place] [address] Marbin Flores MD [address] [facility] DIV OF [place] [address] Niraj Turner MD [address] [place] [address] 2L [place] [address] 2025 1:00 PM FREIGHT WEIGHER [facility] [address] [place] [address], [place] [address] Becky Wlison MD [address] [place] [phone] documented as of this encounter Procedures Procedure Name Priority Date/Time Associated Diagnosis Comments HOLD HLA SPECIMEN Routine 06/22/2024 11: 05 AM CDT documented in this encounter Results * HOLD HLA SPECIMEN (06/22/2024 11:05 AM CDT) Hold HLA Specimen 06/25/2024 12:32 PM CDT [facility] Comment:The Hold HLA specime n has been received into the lab and will be held for 5 years at 4 degrees. Blood BLOOD SPECIMEN / Unknown 06/22/2024 11:05 AM CDT 06/25/2024 11:05 AM CDT us Alan Davenport MD LAB - BLOOD BANK ORDERABLES F inal Result [facility] [address] documented in this encounter Visit Diagnoses Not on filedocumented in this encounter Additional Health Concerns Infection Onset Date Last Indicated Resolved Time COVID-19 Under Investigation 09/13/2024 09/13/2024 09/13/2024 6:36 AM CDT documented as of this encounter Care Teams Mammographer Relationship Specialty Start Date End Date Jeff Strickland MD [address] [place] [address] PCP - General 03/05/18 [place] [address] [address] Orthopedic Surgery 03/28/17 documented as of this encounter
--- OUTSIDE RECORDS SUMMARY | 2024-11-16 21:58 | XMS_ITS | Clinical Summary ---
Author Organization [facility] Address [address] [place] [address] Phone Care Team Providers Care Circus Artist Name Role Phone Jeff Strickland MD Primary Care Provider [phone] Allergies No known active allergies Medications pantoprazole [...] tablet Take 112 mcg by mouth daily transportation solutions manager. Active aspirin (ANGELLA) 325 mg tablet Take 325 mg by mouth daily. Active Vit C-Vit S-Evpwqh-IaFs-L utein (PRESERVISION) 226 mg-200 unit -5 mg-0.8 [...] Comments Blood Pressure 167/77 02/04/2019 9:16 AM SURVEY DIRECTOR Pulse 64 02/04/2019 9:16 AM SURVEY DIRECTOR Temperature 36.5 C (97.7 F) 02/04/2019 9:16 AM SURVEY DIRECTOR Respiratory Rate 16 02/04/2019 9:16 AM SURVEY DIRECTOR Oxygen Saturation 97% 02/04/2019 9:16 AM SURVEY DIRECTOR Inhaled Oxygen Concentration - - Weight 113.4 kg (250 lb) 02/04/2019 9:16 AM SURVEY DIRECTOR Height 175.3 cm (5' 9) 02/04/2019 9:16 AM SURVEY DIRECTOR Body Mass Index 36.92 02/04/2019 9:16 AM SURVEY DIRECTOR Plan of Treatment Health Maintenance Due [...] HOSPITAL BLUE ACCESS/TRUE BLUE PPO Care Teams Circus Artist Relationship Specialty Start Date End Date Jeff Strickland MD [address] [facility] [[email or web address] [address] [place] [address] PCP - General Family Practice 01/01/19
--- OUTSIDE RECORDS SUMMARY | 2024-11-16 21:58 | XMS_ITS | Encounter Summary ---
Author Organization [facility] Address [address] [place] [address] Care Team Providers Care Arterial Embalmer Name Role Phone Deandre Bojorquez MD Unavailable [phone] Jeff Strickland MD Primary Care Provider [phone] Encounter Details Date Type Department Care Team (Late st Contact Info) Description 02/04/2024 Lab Requisition [facility] MAIN LAB [address] [place] [phone] Alan Davenport MD [facility] [place] [address] Social History Tobacco Use Types Packs/Day Years Used Date Smoking Tobacco: Never Smokeless Tobacco: Never Alcohol Use Standard Drinks/Week Comments Not Currently 0 (1 standard drink = 0.6 oz pur e alcohol) socially in past Sex and Gender Information Value Date Recorded Sex Assigned at Male 07/02/2021 2:37 PM CDT Legal Sex Male 10:14 PM PRE SCHOOL MANAGER Gender Identity Male 07/02/2021 2:37 PM [...] Description 12/06/2024 10:40 AM CDT [facility] [address] [place] [address], [place] [address] Marbin Flores MD [address] [facility] DIV [place] [address] Niraj Turner MD [address] [place] [address] 2L [place] [address] 2025 1:00 PM PRE SCHOOL MANAGER Office Visit [facility] Physician Group - Neurology [address] [place] [address], [place] [address] Becky Wilson MD [address] [place] [phone] documented as of this encounter Procedures Procedure Name Priority Date/Time Associated Diagnosis Comments HOLD HLA SPECIMEN Routine 01/27/2024 3:2 3 PM PRE SCHOOL MANAGER documented in this encounter Results * HOLD HLA SPECIMEN (01/27/2024 3:23 PM PRE SCHOOL MANAGER) Hold HLA Specimen 02/04/2024 4:31 PM PRE SCHOOL MANAGER [facility] Comment:The Hold HLA specime n has been received into the lab and will be held for 5 years at 4 degrees. Blood BLOOD SPECIMEN / Unknown 01/27/2024 3:23 PM PRE SCHOOL MANAGER 02/04/2024 3:23 PM PRE SCHOOL MANAGER Alan Davenport MD LAB - BLOOD BANK ORDERABLES F inal Result [facility] [address] documented in this encounter Visit Diagnoses Not on filedocumented in this encounter Additional Health Concerns Infection Onset Date Last Indicated Resolved Time COVID-19 Under Investigation 09/13/2024 09/13/2024 09/13/2024 6:36 AM CDT documented as of this encounter Care Teams Arterial Embalmer Relationship Specialty Start Date End Date Jeff Strickland MD [address] [place] [address] PCP - General 03/05/18 [place] [address] [address] Orthopedic Surgery 03/28/17 documented as of this encounter
--- OUTSIDE RECORDS SUMMARY | 2024-11-16 21:58 | XMS_ITS | Encounter Summary ---
Author Organization [facility] Address [facility] [place] [address] Care Team Providers Care Tester Equipment Name Role Phone Deandre Bojorquez MD Unavailable [phone] Jeff Strickland MD Primary Care Provider Encounter Details Date Type Department Care Team (Late st Contact Info) Description 03/30/2024 Lab Requisition [facility] MAIN LAB [address] [place] [phone] Alan Davenport MD [facility]1 [facility] OF [place] [address] Social History Tobacco Use Types Packs/Day Years Used Date Smoking Tobacco: Never Smokeless Tobacco: Never Alcohol Use Standard Drinks/Week Comments Not Currently 0 (1 standard drink = 0.6 oz pur e alcohol) socially in past Sex and Gender Information Value Date Recorded Sex Assigned at Male 07/02/2021 2:37 PM CDT Legal Sex Male 10:14 PM SHOWER ATTENDANT Gender Identity Male 07/02/2021 2:37 PM [...] Description 12/06/2024 10:40 AM CDT [facility] [address] [place] [address], [place] [address] Marbin Flores MD 1201 [facility] DIV OF [place] [address] Niraj Turner MD [address] [place] [address] 2L [place] [address] 2025 1:00 PM SHOWER ATTENDANT Office Visit [facility] Physician Group - Neurology [address] [place] [address], [place] [address] Becky Wilson MD [address] [place] [phone] documented as of this encounter Procedures Procedure Name Priority Date/Time Associated Diagnosis Comments HOLD HLA SPECIMEN Routine 03/25/2024 2:5 1 PM SHOWER ATTENDANT documented in this encounter Results * HOLD HLA SPECIMEN (03/25/2024 2:51 PM SHOWER ATTENDANT) Hold HLA Specimen 03/30/2024 4:01 PM SHOWER ATTENDANT [facility] Comment:The Hold HLA specime n has been received into the lab and will be held for 5 years at 4 degrees. Blood BLOOD SPECIMEN / Unknown 03/25/2024 2:51 PM SHOWER ATTENDANT 03/30/2024 2:51 PM SHOWER ATTENDANT Alan Davenport MD LAB - BLOOD BANK ORDERABLES F inal Result [facility] [address] documented in this encounter Visit Diagnoses Not on filedocumented in this encounter Additional Health Concerns Infection Onset Date Last Indicated Resolved Time COVID-19 Under Investigation 09/13/2024 09/13/2024 09/13/2024 6:36 AM CDT documented as of this encounter Care Teams Tester Equipment Relationship Specialty Start Date End Date Jeff Strickland MD [address] [place] [address] PCP - General 03/05/18 [place] [address] [address] Orthopedic Surgery 03/28/17 documented as of this encounter
--- OUTSIDE RECORDS SUMMARY | 2024-11-16 21:58 | XMS_ITS | Encounter Summary ---
Author Organization [facility] Address [address] [place] [address] Care Team Providers Care Gas Plant Technician Name Role Phone Deandre Bojorquez MD Unavailable Jeff Strickland MD Primary Care Provider [phone] Encounter Details Date Type Department Care Team (Late st Contact Info) Description 09/24/2024 Results Follow-Up [facility] Early Admission Unit [address] [place] [phone] Angel Crook MD [address] [place] [address] Social History Tobacco Use Types Packs/Day Years [...] and heating? Not hard at all 09/24/[address] [facility] [place] of Occupat ional Health - Occupational Stress [...] any time in the past 12 m [facility], were you homeless or living in a senior living (including now)? No 09/24/2024 Sex and Gender Information Value Date Recorded Sex Assigned at Male 07/02/2021 2:37 PM CDT Legal Sex Male 10:14 PM SENIOR INSPECTOR Gender Identity Male 07/02/2021 2:37 PM [...] Office Visit [facility] End[facility]ology [address] [place] [address], [place] [phone] Marbin Flores MD [address] [facility] DIV OF ABD [place] [address] Niraj Turner MD [address] [place] [address] [place] [address] 2025 1:00 PM SENIOR INSPECTOR Office Visit [facility] - Neurology [address] [place] [address], [place] [address] Becky Wilson MD [address] [place] [phone] documented as of this encounter Visit Diagnoses Not on filedocumented in this encounter Care Teams Gas Plant Technician Relationship Specialty Start Date End Date Jeff Strickland MD [address] [place] [address] PCP - General 03/05/18 [place] [address] [facility] [address] [place] [address] Orthopedic Surgery 03/28/17 documented as of this encounter
--- OUTSIDE RECORDS SUMMARY | 2024-11-16 21:58 | XMS_ITS | Encounter Summary ---
Author Organization [facility] Address [address] [facility] [place] [address] Care Team Providers Care Testing Machine Operator Name Role Phone Deandre Bojorquez MD Unavailable [phone] Jeff Strickland MD Primary Care Provider [phone] Reason for Referral * Radiology Services (Routine) - Open Specialty Diagnoses / Procedures Referred By Contac t Referred To Contact Interventional Radiology Diagnoses PAD (peripheral artery disease) Procedures IR Angiogram Right Leg IR Angiogram Right Leg Elroy Holcomb MD [address] [place] [address] 2L [place] [address] Phone: tel: fax: [facility] IVR [address] [place] [address] Phone: tel: fax: Referral ID Status Reason Start Date Expiration Date Visits Re quested Visits Authorized [id number] Open 11/16/2024 11/16/2025 1 1 Encounter Details Date Type Department Care Team (Late st Contact Info) Description 11/16/2024 Orders Only [facility] - [facility]5 [facility] [place], [place] [address] Israel Banerjee RN PAD (peripheral [...] Recorded Patient Health Questionnaire-2 Score 6 10/05/2024 [facility] - Occupational Stress Questionnaire Answer Date [...] any time in the past 12 m [facility], were you homeless or living in a assisted (including now)? No 09/24/2024 Sex and Gender Information Value Date Recorded Sex Assigned at Male 07/02/2021 2:37 PM CDT Legal Sex Male 10:14 PM USED CAR SALES SUPERVISOR Gender Identity Male 07/02/2021 2:37 PM [...] [facility] - Endocrinology 12[address] [facility] [place], [place] [address] Marbin Flores MD 1201 [facility] OF [place] [address] Niraj Turner MD [address] [place] [address] 2L Div [place] [address] 2025 1:00 PM USED CAR SALES SUPERVISOR Office Visit [facility] - Neurology [address] [place] [address], [place] [address] Becky Wilson MD [address] [place] [phone] Scheduled Orders Name Type Priority Associated Diagnoses Orde r Schedule IR Angiogram Right Leg Imaging Routine PAD (peripheral artery disease) 1 Occurrences starting 11/16/2024 until 11/16/2025 documented as of this encounter Visit Diagnoses Diagnosis PAD (peripheral artery disease)- Primary Unspecified disorders of arteries and arterioles documented in this encounter Care Teams Testing Machine Operator Relationship Specialty Start Date End Date Jeff Strickland MD [address] [place] [address] PCP - General 03/05/18 [place] [address] [address] Orthopedic Surgery 03/28/17 documented as of this encounter
--- OUTSIDE RECORDS SUMMARY | 2024-11-16 21:58 | XMS_ITS | Encounter Summary ---
Author Organization [facility] Address [address] [facility] [address] Care Team Providers Care Associate Application Developer Name Role Phone Deandre Bojorquez MD Unavailable [phone] Jeff Strickland MD Primary Care Provider [phone] Reason for Visit * Reason Onset Date Comments Post-Op 09/03/2024 Encounter Details Date Type Department Care Team (Late st Contact Info) Description 09/03/2024 Telephone [facility] - Cardiology [address] [facility], [place] [address] [place] [address] Hannah Goodman MD [address] [facility] CARD[facility] 2L [place] [address] Post-Op Social History Tobacco Use Types Packs/Day [...] heating? Not hard at all 09/04/2024 [facility] [place] of Occupat ional [...] any time in the past 12 m [facility], were you homeless or living in a residential (including now)? No 09/04/2024 Sex and Gender Information Value Date Recorded Sex Assigned at Male 07/02/2021 2:37 PM CDT Legal Sex Male 10:14 PM GRASS CUTTER Gender Identity Male 07/02/2021 2:37 PM [...] confused post op Patient Call Back number: [phone] documented in this encounter Plan of Treatment Upcoming Encounters Date Type Department Care Team (Late st Contact Info) Description 12/06/2024 10:40 AM CDT Office Visit [facility] Endocrinology [address] [place] [address], [place] [address] Marbin Flores MD 1201 [facility] DIV [place] [address] Niraj Turner MD [address] [place] [address] 2L [place] [address] 2025 1:00 PM GRASS CUTTER Office Visit [facility] - Neurology [address] [place] [address], [place] [address] Becky Wilson MD [address] [place] [phone] documented as of this encounter Visit Diagnoses Not on filedocumented in this encounter Additional Health Concerns Infection Onset Date Last Indicated Resolved Time COVID-19 Under Investigation 09/13/2024 09/13/2024 09/13/2024 6:36 AM CDT documented as of this encounter Care Teams Associate Application Developer Relationship Specialty Start Date End Date Jeff Strickland MD [address] [place] [address] PCP - General 03/05/18 [place] [address] [address] [place] [address] Orthopedic Surgery 03/28/17 documented as of this encounter
--- OUTSIDE RECORDS SUMMARY | 2024-11-16 21:58 | XMS_ITS | Encounter Summary ---
Author Organization [facility] Address [address] [place] [address] Care Team Providers Care Water Pollution Specialist Name Role Phone Jeff Strickland MD Primary Care Provider Chan Nicholas MD Unavailable [phone] Alan Mccall MD Unavailable [phone] Pepito Haro MD PhD Unavailable Solange Guido MD Unavailable [phone] Encounter Details Date Type Department Care Team (Late st Contact Info) Description 07/28/2024 Orders Only [facility] Health Information Management [address] [place] [address] Scanning, Provider Social History Tobacco Use Types Packs/Day Years Used Date Smoking Tobacco: Never Smokeless Tobacco: Never Alcohol Use Standard Drinks/Week Comments Yes 0 (1 standard drink = 0.6 oz pur e alcohol) rarely [facility] Utilities Answer Date Recorded In the past 12 months has [employer], gas, oil, or water company threatened [...] often do you attend chur ch or rastafarian services? 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 Gender Identity Not on file Sexual [...] on filedocumented in this encounter Care Teams Water Pollution Specialist Relationship Specialty Start Date End Date Jeff Strickland MD [facility] [address] [place] [id number] PCP - General Family Medicine 04/02/18 Chan Nicholas MD [facility] [address] [address] Consulting Physician Gastroenterology 11/24/18 Alan Mcclal MD [facility] [address] [address] Referring Physician Nephrology 11/24/18 Pepito Haro MD PhD [address] [place] [address] Consulting Physician Neurosurgery 12/03/22 Solange Guido MD [address] [facility] [address] [place] [address] Referring Physician Cardiovascular Disease 07/23/23 documented as of this encounter
--- OUTSIDE RECORDS SUMMARY | 2024-11-16 21:58 | XMS_ITS | Encounter Summary ---
Author Organization [facility] Address [address] [place] [address] Care Team Providers Care Light Armored Reconnaissance Officer Name Role Phone Deandre Bojorquez MD Unavailable [phone] Jeff Strickland MD Primary Care Provider Encounter Details Date Type Department Care Team (Late st Contact Info) Description 02/07/2023 Lab Requisition [facility] MAIN LAB [address] [place] [phone] Alan Davenport MD [facility] OF [place] [address] Social History Tobacco Use Types Packs/Day Years Used Date Smoking Tobacco: Never Smokeless Tobacco: Never Alcohol Use Standard Drinks/Week Comments Not Currently 0 (1 standard drink = 0.6 oz pur e alcohol) socially in past Sex and Gender Information Value Date Recorded Sex Assigned at Male 07/02/2021 2:37 PM CDT Legal Sex Male 10:14 PM RADIO EQUIPMENT INSTALLER Gender Identity Male 07/02/2021 2:37 PM [...] 10:40 AM CDT [facility] [address] [place] [address], [place] [address] Marbin Flores MD [address]01 [facility] DIV OF [place] [address] Niraj Turner MD [address] [place] [address] 2L [place] [address] 2025 1:00 PM RADIO EQUIPMENT INSTALLER Office Visit [facility] Physician Group - Neurology [address] [place] [address], [place] [address] Becky Wilson MD [address] [place] [phone] documented as of this encounter Procedures Procedure Name Priority Date/Time Associated Diagnosis Comments HOLD HLA SPECIMEN Routine 2023 7:5 8 AM RADIO EQUIPMENT INSTALLER documented in this encounter Results * HOLD HLA SPECIMEN (2023 7:58 AM RADIO EQUIPMENT INSTALLER) Hold HLA Specimen 02/07/2023 9:01 AM RADIO EQUIPMENT INSTALLER [facility] Comment:The Hold HLA specime n has been received into the lab and will be held for 5 years at 4 degrees. Blood BLOOD SPECIMEN / Unknown 2023 7:58 AM RADIO EQUIPMENT INSTALLER 02/07/2023 7:59 AM RADIO EQUIPMENT INSTALLER us Alan Davenport MD LAB - BLOOD BANK ORDERABLES F inal Result [facility] [address] documented in this encounter Visit Diagnoses Not on filedocumented in this encounter Additional Health Concerns Infection Onset Date Last Indicated Resolved Time COVID-19 Under Investigation 09/13/2024 09/13/2024 09/13/2024 6:36 AM CDT documented as of this encounter Care Teams Light Armored Reconnaissance Officer Relationship Specialty Start Date End Date Jeff Strickland MD [address] [place] [address] PCP - General 03/05/18 [place] [address] [address] Orthopedic Surgery 03/28/17 documented as of this encounter
--- OUTSIDE RECORDS SUMMARY | 2024-11-16 21:58 | XMS_ITS | Encounter Summary ---
Author Organization [facility] Address [facility] [place] [address] Care Team Providers Care Frame Pulley Mortising Machine Operator Name Role Phone Deandre Bojorquez MD Unavailable [phone] Jeff Strickland MD Primary Care Provider [phone] Encounter Details Date Type Department Care Team (Late st Contact Info) Description 04/29/2024 Lab Requisition [facility] [address] [place] [id number] Alan Davenport MD [facility] [place] [address] Social History Tobacco Use Types Packs/Day Years Used Date Smoking Tobacco: Never Smokeless Tobacco: Never Alcohol Use Standard Drinks/Week Comments Not Currently 0 (1 standard drink = 0.6 oz pur e alcohol) socially in past Sex and Gender Information Value Date Recorded Sex Assigned at Male 07/02/2021 2:37 PM CDT Legal Sex Male 10:14 PM MAPPING SPECIALIST Gender Identity Male 07/02/2021 2:37 PM [...] Visit [facility] - Endocrinology [address] [place] [address], [place] [address] Marbin Flores MD [address] [facility] [place] [address] Niraj Turner MD [address] [place] [address] 2L [place] [address] 2025 1:00 PM MAPPING SPECIALIST Office Visit [facility] - Neurology [address] [place] [address], [place] [address] Becky Wilson MD [address] [place] [phone] documented as of this encounter Procedures Procedure Name Priority Date/Time Associated Diagnosis Comments HOLD HLA SPECIMEN Routine 04/27/2024 1:4 8 PM CDT documented in this encounter Results * HOLD HLA SPECIMEN (04/27/2024 1:48 PM CDT) Hold HLA Specimen 04/29/2024 3:02 PM CDT [facility] Comment:The Hold HLA specime n has been received into the lab and will be held for 5 years at 4 degrees. Blood BLOOD SPECIMEN / Unknown 04/27/2024 1:48 PM CDT 04/29/2024 1:49 PM CDT us Alan Davenport MD LAB - BLOOD BANK ORDERABLES F inal Result [facility] [address] documented in this encounter Visit Diagnoses Not on filedocumented in this encounter Additional Health Concerns Infection Onset Date Last Indicated Resolved Time COVID-19 Under Investigation 09/13/2024 09/13/2024 09/13/2024 6:36 AM CDT documented as of this encounter Care Teams Frame Pulley Mortising Machine Operator Relationship Specialty Start Date End Date Jeff Strickland MD [address] [place] [address] PCP - General 03/05/18 [place] [address] [address] Orthopedic Surgery 03/28/17 documented as of this encounter
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
--- OUTSIDE RECORDS SUMMARY | 2024-11-16 21:59 | XMS_ITS ---
Author Organization [facility] Address [address] [place] [address] Care Team Providers Care Wood Pile Driver Operator Name Role Phone Jeff Strickland MD Primary Care Provider Chan Nicholas MD Unavailable Alan Mccall MD Unavailable Pepito Haro MD PhD Unavailable Solange Guido MD Unavailable [phone] Dialysis Access Sites Type Status Location Placement [...] both eyes EGFR Routine 04/13/2024 5:06 AM LEATHER TACKER HEMOGLOBIN A1C STAT 04/10/2024 11:41 PM LEATHER TACKER LIPID PANEL STAT 04/10/2024 11:41 PM LEATHER TACKER from Last 3 Months or Most Recently [...] 300 + = 14 units Active FA-vit Einkg-X-gswm-vitamin D3 (Dialyvite 800-Ultra D) 0.8-2,000 mg-unit tablet [...] total) by mouth 06/04/19 25 Active vitamins A,C,L-wsad-mekjjp (PreserVision AREDS) 4,296 mcg-226 mg-90 mg capsule [...] damage Assessment & Plan (03/09/2024 6:25 PM LEATHER TACKER): Vision OD trends mild improvement, though still [...] We discussed that genetic results would not post exchange manager. Given we have exhausted available treatment [...] 03/26/2021 Assessment & Plan (03/26/2021 1:17 PM LEATHER TACKER): Enlarged mild sella turcica on a routine [...] units Assessment & Plan (03/26/2021 1:17 PM LEATHER TACKER): Chronic, uncontrolled, improving A1c today 7.7 % [...] WNL Assessment & Plan (03/26/2021 1:16 PM LEATHER TACKER): Pt currently on Levothyroxine 112 mcg oral [...] 11/18/2018 Assessment & Plan (01/21/2019 2:02 PM LEATHER TACKER): Symptomatic. Will request for esophageal manometry. Continue [...] well Assessment & Plan (03/26/2021 1:16 PM LEATHER TACKER): On statin therapy Tolerating well Last lipid [...] nephrectomy. 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 [id number] Immunizations Immunization Administration Dates Next Due Hep [...] = 0.6 oz pur e alcohol) rarely [facility] Stunnities Answer Date Recorded In the past 12 months has [employer], gas, oil, or water [employer] threatened to shut off services in your [...] on file Legal Sex Male 2:23 AM LEATHER TACKER Gender Identity Not on file Sexual Orientation [...] CDT Respiratory Rate 16 04/13/2024 8:33 AM LEATHER TACKER Oxygen Saturation 98% 04/13/2024 8:33 AM LEATHER TACKER Inhaled Oxygen Concentration - - Weight 122.3 [...] Selwyn Wong M.D. LC: MARC Report ID: [id number] Reading Location: [id number] Procedure Note Dolores Wong MD - 10/12/2024 EXAM DESCRIPTION: MRI BRAIN WO CONTRAST REASON FOR STUDY: other symptoms and signs involving cognitive functionsand awareness Cognitive changes, confusion, worse over that last several weeks, noinjury or trauma but patient states he has had several surgeries recently TECHNIQUE: Multiplanar imaging includes non-contrasted T1, T2, FLAIR, and diffusion with ADC map sequences. Additional sequence(s) sensitive [employer] products. Images stored on PACS. COMPARISON: MRI [...] Selwyn Wong M.D. LC: MARC Report ID: [id number] Reading Location: [id number] us Provider Transcribed Order IMG MRI PROCEDURES [...] Result * (ABNORMAL) eGFR (04/13/2024 5:06 AM LEATHER TACKER) eGFR 5(L) >=60 mL/min/1. 73 m2 Comment: [...] reviewed 2020. Blood 04/13/2024 5:0 6 AM LEATHER TACKER 04/13/2024 5:31 AM LEATHER TACKER us Saul Engle MD LAB BLOOD ORDERABLES Final Resul t [facility] Department of Laboratories [place], [place] [id number] * (ABNORMAL) Lipid panel (04/10/2024 11:41 PM LEATHER TACKER) Cholesterol 145 30 - 199 mg/dL Comment: [...] on 2017. Triglycerides 453(H) <=149 mg/dL [facility] Comment: Interpretive Data Ages < [...] revised on 2017. HDL 22(L) >=40 mg/dL [facility] Comment: Interpretive Data Ages < [...] on 2017. LDL, calculated See Comment <=129 [facility] Comment: Unable to calculate LDL [...] on 2023. Non-HDL Cholesterol 123 mg/dL [facility] Comment: Interpretive Data Ages < [...] last revised on 2017. Chol/HDL ratio 7 [facility] Blood 04/10/2024 11:4 1 PM LEATHER TACKER 04/10/2024 11:55 PM LEATHER TACKER us Nicole Boo MD LAB BLOOD ORDERABLES Final Result [facility] Department [place] [address] from Last 3 Months or Most Recently Relevant to Health Maintenance
--- OUTSIDE RECORDS SUMMARY | 2024-11-16 21:59 | XMS_ITS | Clinical Summary ---
Author Organization [facility] Address [facility] [place] [address] Care Team Providers Care Lease Administrator Name Role Phone Jeff Strickland MD Primary Care Provider [phone] Allergies Active Allergy Reactions Criticality Noted Date [...] by mouth nightly at bedtime. 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
[2024-11-16 22:06] LABS: Alanine Aminotransferase 187 U/L (6-50); Albumin Level 2.8 g/dL (3.5-5.1); Alkaline Phosphatase 142 U/L (38-126); Anion Gap 8 mmol/L (4-12); Aspartate Amino Transferase 175 U/L (17-59); Bilirubin,Total 0.4 mg/dL (0.2-1.3); Blood Urea Nitrogen 33 mg/dL (9-20); Calcium 8.4 mg/dL (8.4-10.2); Carbon Dioxide 27 mmol/L (22-30); Chloride 98 mmol/L (98-107); Estimated CRCL calculation 10 ml/min; Estimated Glomerular Filt Rate 7; Glucose 85 mg/dL (65-110); Potassium 3.3 mmol/L (3.4-5.0); Sodium 133 mmol/L (137-145); Total Protein 5.5 g/dL (6.3-8.2)
[2024-11-16 22:39] LABS: INR 1.0; Partial Thromboplastin Time 28.0 Seconds (22.3-36.8); Prothrombin Time 13.4 Seconds (11.1-14.7)
[2024-11-16] MEDS: ARTIFICIAL TEARS OPHTH SOLN 15 ML BOTTLE 2 DROP LEFT EYE (23:07)
[2024-11-16] MEDS: IBUPROFEN 400 MG TABLET 800 MG PO (23:07)
[2024-11-16 23:13] VITALS: BP 138/90; PULSE 61; RESP 15; O2SAT 98
== END 2024-11-16 23:14 | disposition home or self-care (01) ==
PROVIDERS: Registered Nurse; Emergency Provider Student in an Organized Health Care Education/Training Program; PCP Family Medicine
DX: H11.002 Unspecified pterygium of left eye (principal); H04.122 Dry eye syndrome of left lacrimal gland; N18.6 End stage renal disease; E11.22 Type 2 diabetes mellitus with diabetic chronic kidney disease; F03.90 Unspecified dementia, unspecified severity, without behavioral disturbance, psychotic disturbance, mood disturbance, and anxiety; I13.2 Hypertensive heart and chronic kidney disease with heart failure and with stage 5 chronic kidney disease, or end stage renal disease; I50.9 Heart failure, unspecified; Z79.01 Long term (current) use of anticoagulants; Z79.899 Other long term (current) drug therapy; Z99.2 Dependence on renal dialysis
CPT/HCPCS: 36415; 70450; 80053; 82948; 85025; 85610; 85730; 99284; A9270

== ENCOUNTER 2024-11-18 14:05 | Emergency (ER) | payer MEDICARE, SELFPAY ==
--- OUTSIDE RECORDS SUMMARY | 2024-01-19 09:15 | XMS_ITS ---
Author Organization [facility] Address [address] [place] [address] [place] [address] Care Team Providers Care Body Make Up Artist Name Role Phone DONNIE WOOD MD Primary Care Provider Lance Sergio Trujillo Unavailable [phone] REASON FOR VISIT Left > Right Low Back Pain, Left Lower Extremity Pain MEDICATIONS Medication SIG (Take, Route, Frequency, Duration) Notes Start Date End Date Status Potassium Chloride 10 MEQ 1 packet with food Orally Twice a day for 30 day(s) Active NovoLOG 100 UNIT/ML as directed Injection Active cloNIDine HCl 0.1 MG 1 tablet Orally Onc e a day for 30 day(s) Active Tamsulosin HCl 0.4 MG 1 capsule Orally O nce a day for 30 day(s) Active Fenofibrate 145 MG 1 tablet Orally Once a day for 30 day(s) Active Ondansetron HCl 4 MG TAKE 1 TABLET BY MOUTH EVERY 8 HOURS NEEDED FOR NAUSEA OR VOMITING Oral for 10 Active tiZANidine HCl 4 MG TAKE 1 TABLET BY MOUTH TWICE DAILY NEEDED FOR MUSCLE SPASMS Oral for 30 Active traMADol HCl 50 MG TAKE 1 TABLET BY MOUTH EVERY 6 HOURS NEEDED FOR PAIN Oral for 7 Active Vitamin D3 125 MCG (5000 UT) 1 capsule Orally Once a day for 30 day(s) Active Tylenol PM Extra Strength 500-25 MG 1 tablet at bedtime as needed Orally Once a day for 30 day(s) Active Pantoprazole Sodium 40 MG TAKE 1 TABLET BY MOUTH DAILY Oral for 90 Active Lisinopril 20 MG 1 tablet Orally Once a day for 30 day(s) Active hydrALAZINE HCl 25 MG 1 tablet with food Orally Three times a day for 30 day(s) Active LORazepam 0.5 MG TAKE 1 TABLET BY MOUTH AT BEDTIME NEEDED FOR ANXIETY Oral for 30 Active Levothyroxine Sodium 112 MCG 1 tablet in the morning on an empty stomach Orally Once a day Active Furosemide 80 MG 1 tablet Orally Once a day for 30 day(s) Active Famotidine 40 MG TAKE 1 TABLET BY MOUTH DAILY Oral for 30 Active Finasteride 5 MG TAKE 1 TABLET BY MOUTH DAILY Oral for 90 N400,Unavailab le Active dilTIAZem HCl ER 120 MG TAKE 1 CAPSULE B Y MOUTH TWICE DAILY Oral for 90 Active Gabapentin 100 MG TAKE 1 CAPSULE BY MOUTH THREE TIMES DAILY Oral for 30 Active Carvedilol 25 MG 1 tablet with food Orally Twice a day Active DULoxetine HCl 30 MG Oral for 30 Active Aspirin 81 MG 1 tablet Orally Once a day Active Basaglar KwikPen 100 UNIT/ML as directed Subcutaneous Active Atorvastatin Calcium 80 MG 1 tablet Orally Once a day Active PROBLEMS Problem Type ICD Code Onset Dates Problem Status W/U Status Risk SNOMED Code Notes Problem Other intervertebral disc degeneration, lumbar region with discogenic back pain and lower extremity pain (M51.362) Active confirmed VITAL SIGNS Blood pressure systolic 157 mm Hg 01/19/20 24 Blood pressure diastolic 78 mm Hg 024 Heart Rate 69 /min 01/19/2024 Respiratory Rate 18 /min 01/19/2024 Height 5 ft 9 in in 01/19/2024 Weight 229 lbs 01/19/2024 BMI 33.81 kg/m2 01/19/2024 Post procedure qj=512/71,65, 16.Discharged home ambulatory with per ambulatory. No acute distress noted. 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 was given an order for PT at Dr. Gallagher's office. 01/19/2024 Other intervertebral disc degeneration, lumbar region with discogenic back pain and lower extremity pain (ICD-10 - M51.362) 01/19/2024 Osseous stenosis of neural canal of lumbar region (ICD-10 - M99.33) PLAN OF TREATMENT Treatment Notes Assessment Notes Radiculopathy, lumbar region The pt. was given an order for PT at Dr. Gallagher's office. Next Appt Details Follow Up: 2 Weeks OPV, Reas on: Procedure Notes * Category Sub-Category Detail Notes Transforaminal Epidural Steroid Injection Locati on Bilateral Levels L4-5 Anesthesia Local without IV sed ation Operative Technique After the risks, wade efits, alternative treatment options and potential complications related to the procedure were discussed, informed consent was obtained. The specific risks of this procedure including pain, bleeding, infection, spinal headache, persistent spinal fluid leak, epidural hematoma, nerve damage, spinal cord injury, paralysis, total spinal anesthesia resulting in cardiopulmonary arrest/, respiratory distress requiring intubation, insomnia, hyperglycemia, hair loss, muscle atrophy, skin depigmentation, weight gain, fluid retention, adrenal suppression, immunosuppression, osteoporosis resulting in fractures, avascular necrosis of the hip, cataracts, bleeding gastric ulcer, worsening pain and failure to relieve pain were discussed and the patient is agreeable to proceeding at this time. The patient was placed in the prone position on the fluoroscopy table and standard ASA monitors were applied. The back was prepped and draped in the usual sterile fashion with chlorhexidine 2%/IPA 70%. The c-arm was obliqued and tilted to identify the left L4-5 neural foramen and a 22 gauge 5 inch spinal needle was inserted under fluoroscopic guidance towards the junction of the inferior endplate and superior articular process until the superior articular process was contacted. A lateral view was taken and the needle tip was advanced into the posterior aspect of the neuroforamen. The subcutaneous structures were anesthetized with 3 mL of 1% Preservative-Free lidocaine during needle placement. An AP view was taken and after negative aspiration for blood, air or CSF, 2 mLs of Omnipaque 240 contrast dye was injected under live fluoroscopy for an epidurogram showing good spread within the epidural space and along the selected nerve root (except in cases of contrast allergy). No intravascular or intrathecal spread was noted. A solution of 10 mg of Preservative-Free Dexamethasone (10 mg/mL), plus 3 mL of 0.25% Preservative-Free bupivacaine was mixed and after negative aspiration 2 mL of this solution was slowly injected into the epidural space. The c-arm was obliqued and tilted to identify the right L4-5 neural foramen and a 22 gauge 5 inch spinal needle was inserted under fluoroscopic guidance towards the junction of the inferior endplate and superior articular process until the superior articular process was contacted. A lateral view was taken and the needle tip was advanced into the posterior aspect of the neuroforamen. The subcutaneous structures were anesthetized with 3 mL of 1% Preservative-Free lidocaine during needle placement. An AP view was taken and after negative aspiration for blood, air or CSF, 2 mLs of Omnipaque 240 contrast dye was injected under live fluoroscopy for an epidurogram showing good spread within the epidural space and along the selected nerve root (except in cases of contrast allergy). No intravascular or intrathecal spread was noted. From the solution of 10 mg of Preservative-Free Dexamethasone (10 mg/mL), plus 3 mL of 0.25% Preservative-Free bupivacaine, 2 mL of this solution was slowly injected into the epidural space. The needles were removed, the skin was cleaned and band-aids were placed over the puncture sites. The patient tolerated the procedure well, was able to ambulate without difficulty and was monitored for 20 minutes. Patient reports a 90% reduction in typical pain immediately postprocedure. The patient remained hemodynamically and neurologically stable. No apparent complications were observed. Postoperative instructions were reviewed with the patient. The patient was then discharged home in good condition with a reefer truck driver. X-ray time: 25 seconds Progress Notes * Examination Category Sub-Category Detail Notes Category Not es Examination/ Pre-Anesthesia Assessment General: The patient is alert and oriented X 3 in moderate distress secondary to pain HEENT: Normocephalic, atrau matic. PERRL. The oropharynx is clear Neck: There is full range of motion of the cervical spine Heart: Regular rate and rhy thm Chest: Clear to auscultatio n bilaterally Abdomen: Soft and benign Musculoskeletal and Extremities: There i s tenderness to palpation over the bilateral L2-3 through L5-S1 facet joints. Extension and lateral rotation of the lumbar spine reproduces the patient's typical axial low back pain. John's, [place]'s and Gaenslen's are positive bilaterally. There is tenderness to palpation over the left sacroiliac joint and greater trochanter. There is tenderness to palpation over the bilateral lumbar paraspinal muscles and palpable myofascial trigger points throughout. There is weakness and atrophy of the bilateral lumbar paraspinal muscles Neurological: There is positive st raight leg raising bilaterally. There is 4 out of 5 strength at the left hip flexors and knee extensors. Otherwise, there are no focal strength deficits in the remainder of the left lower extremity and entire right lower extremity Skin: Clean, dry and intac t Psychiatric: Mood and affect are normal History and Physical Notes * HPI (History of Present Illness) Category Sub-Category Detail Notes Category Not es Pain Management Radiographic Imaging MRI lumbar spine done on : L2-3 annular bulge and facet arthropathy. L3-4: Annular bulge with facet arthropathy. Bilateral neuroforaminal stenosis. L4-L5: Annular bulge and facet arthropathy. Right neuroforaminal stenosis. L5-S1 annular bulge and facet arthropathy. Left foraminal protrusion, narrowing the left neuroforaminal CT chest with contrast performed in 12/12/22 reveals mildly displaced oblique fracture of the sternum. Interval decrease in size of the small retrosternal hematoma measuring 5 mm previously, 9 mm. Redemonstrated left T6 and T7 costochondral fracture. Redemonstrated nondisplaced right second rib fracture. No new acute fractures. There are multilevel degenerative changes throughout the thoracic spine. X-rays scoliosis AP and lateral performed 12/03/22. We will Cervicothoracic curvature may be positional. No significant coronal imbalance. No significant pelvic obliquity. Mild anterior sagittal imbalance. Vertebral body heights are preserved. There is diffuse idiopathic skeletal hyperotosis. Multilevel mild to moderate degenerative disc disease. Lower lumbar facet arthropathy. Surgical clips overlie the right upper quadrant. EEG thoracic, lumbar without contrast performed 11/30/22. There is following multilevel anterior ossifications of the spinous ligament calcifications. There are 12 rib-bearing thoracic vertebrae. There is chronic wedge deformity of the T12 vertebral body. Linear lytic focus within the posterior right lamina. It is well corticated and is favored to represent vascular channel. There is symmetric. Focus on the left side as well. Alignment of the thoracic spine is normal. There is no acute fracture. Vertebral bodies are normal in height without impression fractures. There is multilevel disc height loss. Pending from T5-T12. There is no soft tissue abnormality. The thoracic aorta is normal. Lumbar spine alignment of the lumbar spine is normal. There is no acute fracture. The vertebral bodies are normal in height without compression fractures. The intervertebral disc heights are normal. There is no soft tissue abnormality. The abdominal aorta appears normal. There is eye to moderate neural foraminal stenosis at L5-S1. There are multiple bilateral renal lesions of variable intensity, contrast-enhanced MRI of the abdomen is again recommended for further evaluation. There is bilateral dependent opacifications of the lungs, increased from prior exam Left hip x-ray performed 09/28/20 , reveals mild without hip osteoarthritis with the physician tomorrow had neck junction off set MRI lumbar spine performed 01/04/24. L1-2 there is mild degenerative disc narrowing. No disc bulge or herniation. There is mild facet arthropathy. No central canal stenosis or left neural foraminal narrowing. There is moderate right neural foraminal narrowing. L2-3. There is minimal disc bulge with moderate facet arthropathy. No central canal stenosis or definite neural foraminal narrowing. L3-4 there is mild disc bulge with mild to moderate facet arthropathy. No central canal stenosis or definite neural foraminal narrowing. L4-5, there is minimal disc bulge with mild to moderate facet arthropathy. No central canal stenosis or neural foraminal narrowing. L5-S1. There is minimal disc bulge with moderate facet arthropathy. No central canal stenosis. There is mild to moderate left neural foraminal narrowing. Right neural foramen preserved. Assessment and Follow-up: Follow-up Plan documen wendy:: Yes MIPS Quality 2020: MIPS Documented:: Compliant
--- OUTSIDE RECORDS SUMMARY | 2024-02-03 06:45 | XMS_ITS ---
Author Organization [facility] Address [address] [facility] [place] [address] Care Team Providers Care Global Technical Writer Name Role Phone DONNIE WOOD MD Primary Care Provider Lance Sergio Trujillo Unavailable [phone] ALLERGIES No Known Allergies REASON FOR VISIT [...] retired. 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 John's, [place]'s and Gaenslen's are positive bilaterally. There is [...]
--- OUTSIDE RECORDS SUMMARY | 2024-03-03 06:30 | XMS_ITS ---
Author Organization [facility] Address [address] [place] [address] [place] [address] Care Team Providers Care Local Area Network Systems Adminstrator Name Role Phone DONNIE WOOD MD Primary Care Provider Lance Sergio Trujillo Unavailable [phone] ALLERGIES No Known Allergies REASON FOR VISIT [...] retired. 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 He denies tobacco, alcohol, or illicit drug abuse PROBLEMS Problem Type ICD Code Onset Dates Problem Status W/U Status Risk SNOMED Code Notes Problem Primary osteoarthritis, 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) Active confirmed Localized, primary osteoarthritis of the shoulder region ([id number]) VITAL SIGNS Blood pressure systolic 112 mm Hg 03/03/19 25 Blood pressure diastolic 62 mm Hg 025 Heart Rate 59 /min 03/03/2024 Respiratory Rate 18 /min 03/03/2024 Height 5 ft 9 in in 03/03/2024 Weight 229 lbs 03/03/2024 BMI 33.81 kg/m2 03/03/2024 Encounters Encounter Location Date Provider Diagnosis [facility] [address] [facility] [place] [address] 03/03/2024 Sergio Stynowick Pain in left knee M25.562 ; Primary osteoarthritis, unspecified shoulder M19.019 ; Other chest pain R07.89 ; Radiculopathy, lumbar region M54.16 ; Other intervertebral disc degeneration, lumbar region M51.36 ; 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 John's, [place]'s and Gaenslen's are positive bilaterally. There is [...]
--- OUTSIDE RECORDS SUMMARY | 2024-03-08 07:45 | XMS_ITS ---
Author Organization [facility] Address [address] [place] [address] [place] [address] Care Team Providers Care Ortho Rn Name Role Phone DONNIE WOOD MD Primary Care Provider Robba Sergio Trujillo Unavailable [phone] REASON FOR VISIT BILAT SHOULDER JOINT INJECTION (NEED XRAY - BEING DONE AT [facility]) MEDICATIONS Medication SIG (Take, Route, Frequency, [...] Location Date Provider Diagnosis [facility] [address] [place] [phone] 03/08/2024 Sergio Rivera Primary osteoarthritis, unspecified shoulder [...] discharged home in good condition with a tow bar driver. X-ray time: 6 seconds Progress Notes [...] patient's typical axial low back pain. John's, Andrews's and Gaenslen's are positive bilaterally. There is [...] and Follow-up: Follow-up Plan documen wendy:: Yes [facility] Quality 2020: [facility] Documented:: Compliant
--- OUTSIDE RECORDS SUMMARY | 2024-03-31 10:13 | XMS_ITS ---
Author Organization [facility] Address [address] [facility] [place] [address] Care Team Providers Care Baker Apprentice Name Role Phone DONNIE WOOD MD Primary Care Provider Unavaila Sergio Trujillo Unavailable [phone] Encounters Encounter Location Date Provider Diagnosis [facility] [address] [facility] [place] [address] 03/31/2024 Sergio Rivera PLAN OF TREATMENT No Information
[2024-11-18] VITALS (7 sets, daily range): BP systolic 134–162; BP diastolic 67–89; PULSE 61–70; RESP 13–18; TEMP 36.7–36.9; O2SAT 97–100
--- NOTE | ~2024-11-18 | CT_ITS ---
EXAMINATION: CT brain wo con, 11/18/2024 16:00 CDT HISTORY: headache COMPARISON: No comparisons available. Technique: Axial images obtained of the brain without contrast. One or more of the following dose reduction techniques were used: automated exposure control, adjustment of the mA and/or kV according to patient size, use of iterative reconstruction technique. Findings: There are multiple bilateral areas of scattered calcification throughout the brain parenchyma, no acute infarct or hemorrhage is identified. There is no midline shift or mass effect. There are no extra-axial fluid collections. The mastoid air cells, sinuses and orbits are unremarkable. Sinuses and orbits unremarkable. No acute fracture. No significant facial or scalp soft tissue swelling evident. No radiopaque foreign body is seen. Impression: 1. No acute infarct or hemorrhage. Nonspecific scattered foci of calcification that may reflect sequelae of previous infection. Outpatient contrast-enhanced MRI recommended Reviewed, dictated and finalized at location P. Impression: 1. No acute infarct or hemorrhage. Nonspecific scattered foci of calcification that may reflect sequelae of previous infection. Outpatient contrast-enhanced M RI recommended
--- OUTSIDE RECORDS SUMMARY | 2024-11-18 14:10 | XMS_ITS | Encounter Summary ---
Author Organization [facility] Address [facility] [place] [address] Care Team Providers Care Drama Teacher Name Role Phone Deandre Bojorquez MD Unavailable [phone] Jeff Strickland MD Primary Care Provider [phone] Encounter Details Date Type Department Care Team (Late st Contact Info) Description 07/31/2023 Lab Requisition [facility] [address] [place] [id number] Alan Davenport MD [facility] [place] [place] [address] Social History Tobacco Use Types Packs/Day Years Used Date Smoking Tobacco: Never Smokeless Tobacco: Never Alcohol Use Standard Drinks/Week Comments Not Currently 0 (1 standard drink = 0.6 oz pur e alcohol) socially in past Sex and Gender Information Value Date Recorded Sex Assigned at Male 07/02/2021 2:37 PM CDT Legal Sex Male 10:14 PM PRODUCTION OPERATIONS INSPECTOR Gender Identity Male 07/02/2021 2:37 PM [...] Care Team (Late st Contact Info) Description 11/23/2024 10:00 AM CDT Appointment H IVR [address] [place] [address] Elroy Holcomb MD [address] [place] [address] [address] [place] [address] 11/24/2024 9:05 AM CDT Hospital Encounter [facility] [address] [place] [address] Elroy Holcomb MD [address] [place] [address] [address] [place] [address] Surgery General 11/24/2024 9:05 AM CDT - 11/24/2024 11:20 AM CDT Surgery [facility] [address] [place] [address] Elroy Holcomb MD [address] [place] [address] [address] [place] [address] Bilateral first toe debridement 12/06/2024 10:40 AM CDT Office Visit [facility] Endocrinology [address] [place] [address], [place] [phone] Marbin Flores MD [address] [facility] DIV OF ABD [place] [address] Niraj Turner MD [address] [facility] 2L [place] [address] 2025 1:00 PM PRODUCTION OPERATIONS INSPECTOR Office Visit [facility] - Neurology [address] [place] [address], [place] [phone] Becky Wilson MD [address] [place] [phone] Scheduled Procedures Name Priority Associated Diagnoses Date/Ti me IRRIGATION/DEBRIDEMENT WOUND/TISSUE Peripheral artery disease 11/24/2024 9:05 AM CDT AMPUTATION TOE Peripheral artery disease 11/24/2024 9:05 AM CDT documented as of this encounter Procedures Procedure [...] [facility] ([facility]) [address] documented in this encounter Visit Diagnoses Not on filedocumented in this encounter Additional Health Concerns Infection Onset Date Last Indicated Resolved Time COVID-19 Under Investigation 09/13/2024 09/13/2024 09/13/2024 6:36 AM CDT documented as of this encounter Care Teams Drama Teacher Relationship Specialty Start Date End Date Jeff Strickland MD [address] [place] [address] PCP - General 03/05/18 [place] [address] [place] [address] Orthopedic Surgery 03/28/17 documented as of this encounter
--- OUTSIDE RECORDS SUMMARY | 2024-11-18 14:10 | XMS_ITS | Clinical Summary ---
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 Serial / Lot Cath Pace Eltrd Biplr Dist Tip Balln Flw - [id number] Explanted:Qty: 1 on 09/01/2024 at [facility] [employer] [id number] 12/17/2025 [id number] / [id number] / [id number] Procedures Procedure Name Priority Date/Time Associated Diagnosis [...] 12:24 PM CDT Coronary artery disease involving alutiiq heart with angina pectoris, unspecified vessel or [...] BLOCK Routine 09/14/2024 10:3 8 AM CDT [place] AMPUTATION METATARSAL+TOE,SINGLE 09/14/2024 10:23 AM CDT Toe [...] unspecified vessel or lesion type, unspecified whether alutiiq or transplanted heart CCL TEMPORARY PACEMAKER INSERTION Routine 09/01/2024 2:18 PM CDT Abnormal stress test Dyspnea on exertion Pre-kidney transplant, listed Coronary artery disease with angina pectoris, unspecified vessel or lesion type, unspecified whether alutiiq or transplanted heart Abnormal findings on cardiac catheterization CCL CORONARY ATHERECTOMY Routine 09/01/2024 2:18 PM CDT Abnormal stress test Dyspnea on exertion Pre-kidney transplant, listed Coronary artery disease with angina pectoris, unspecified vessel or lesion type, unspecified whether alutiiq or transplanted heart Abnormal findings on cardiac catheterization CCL CORONARY IVUS Routine 09/01/2024 2:1 8 PM CDT Abnormal stress test Dyspnea on exertion Pre-kidney transplant, listed Coronary artery disease with angina pectoris, unspecified vessel or lesion type, unspecified whether alutiiq or transplanted heart Abnormal findings on cardiac catheterization CCL STAGED PERC CORONARY INTERVENTION Routine 09/01/2024 2:18 PM CDT Abnormal stress test Dyspnea on exertion Pre-kidney transplant, listed Coronary artery disease with angina pectoris, unspecified vessel or lesion type, unspecified whether alutiiq or transplanted heart Abnormal findings on cardiac catheterization GLUCOSE - POINT OF CARE Routine 09/01/2024 10:00 AM CDT CBC W/O DIFFERENTIAL ANDIE 09/01/2024 9:57 AM CDT Coronary artery disease with angina pectoris, unspecified vessel or lesion type, unspecified whether alutiiq or transplanted heart Abnormal findings on cardiac catheterization BASIC METABOLIC PANEL (CALCIUM TOTAL) ANDIE 09/01/2024 9:57 AM CDT Coronary artery disease with angina pectoris, unspecified vessel or lesion type, unspecified whether alutiiq or transplanted heart Abnormal findings on cardiac [...] Routine 08/18/2024 2:33 PM CDT 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) ACT LR - POCT ([facility]) Routine 08/18/2024 2:08 PM CDT ACT LR - POCT ([facility]) Routine 08/18/2024 1:24 PM CDT ACT LR - POCT ([facility]) Routine 08/18/2024 12:57 PM CDT ACT LR - POCT ([facility]) Routine 08/18/2024 12:13 PM CDT ANGIOPLASTY PERIPHERAL ARTERY 08/18/2024 10:49 AM CDT 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) GLUCOSE - POINT OF CARE Routine 08/18/2024 10:15 AM CDT BASIC METABOLIC PANEL (CALCIUM TOTAL) ANDIE 08/18/2024 10:11 AM CDT 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) CBC W/O DIFFERENTIAL ANDIE 08/18/2024 10:01 AM CDT 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) HEPATITIS C ANTIBODY Routine 06/16/2024 4:15 PM CDT Pre-kidney transplant, listed ESRD (end stage renal disease) (HCC) 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, without long-term current use of insulin (HCC) Hypertension, unspecified type Oncocytoma Kidney stones SHABNAM on CPAP Coronary artery disease involving alutiiq coronary artery of alutiiq heart, unspecified whether angina present from Last 3 Months or Most Recently Relevant to Health Maintenance Results * IR Angiogram Bilateral Leg (11/12/2024 9:06 AM CDT) Anatomical Region Laterality Modality Lower Extremity X-Ray Angiograph y 11/12/2024 9:47 AM CDT Impressions 11/12/2024 3:38 PM CDT IMPRESSION: Left lower extremity angiogram with patent SQUEEGEE TENDER, SFA with areas of < 50% stenosis, patent TP trunk with occlusions in the peroneal and PT shortly after origin, with single vessel runoff to the foot via the AT with occlusion in the DP in the foot. Right lower extremity angiogram with patent SQUEEGEE TENDER, SFA, and TP trunk with an occluded [...] Owusu 11/12/2024 9:47 AM > Dictated by Waterproofing Machine Operator I, Elroy Holcomb MD have [...] monitored moderate sedation ATTENDING: Elroy Holcomb MD SPACE AND MISSILE OPERATIONS: Griffin Rodriguez MD; Elory Owusu MD ANESTHESIA: Moderate sedation with midazolam [...] exchanges this was upsized for a 5 [place] sheath. A guidewire and omniflush catheter were [...] evaluation, please review the evaluation forms in [facility]. For details on monitored clinical parameters during the intra-service sedation time, please review the procedure nurse documentation in [facility]. Procedure Note Elroy Holcomb MD - [...] monitored moderate sedation ATTENDING: Elroy Holcomb MD SPACE AND MISSILE OPERATIONS: Griffin Rodriguez MD; Elroy Owusu MD ANESTHESIA: [...] of exchanges thiswas upsized for a 5 [place] sheath. A guidewire and omniflush catheter werethen [...] evaluation, please review the evaluation forms in [facility]. For details on monitored clinical parameters during the intra-service sedation time, please review the procedure nurse documentation in [facility]. IMPRESSION: Left lower extremity angiogram with patent SQUEEGEE TENDER, SFA with areas of < 50% stenosis, patent TP trunk with occlusions in the peroneal and PT shortly after origin, with single vessel runoff to the foot via the AT with occlusion in the DP in the foot. Right lower extremity angiogram with patent SQUEEGEE TENDER, SFA, and TP trunk with an occluded AT distally, andocclusion in peroneal at level of ankle, and multifocal areas of stenosis in thePT which appears occluded at the level of the ankle. Successful deploymentof 5 Fr Mynx control closure device. Total fluoroscopy time of 4.2min. Total contrast usage of 60mL > Dictated by Elroy Owusu 11/12/2024 9:47 AM > Dictated by Waterproofing Machine Operator I, Elroy Holcomb MD have personally reviewed and interpreted this examination/study. > Interpreting Provider: Elroy Holcomb MD on 11/12/2024 3:38 PM us Elroy Holcomb MD IR ORDERABLES Final Resu lt * (ABNORMAL) BASIC METABOLIC PANEL (CALCIUM TOTAL) (11/12/2024 7:11 AM CDT) Only the most recent of7 resultswithin the time period is included. BUN 28(H) 7 - 26 mg/dL 11/12/2024 7:59 AM [facility] Creatinine 7.33(H) 0.71 - 1.16 mg/dL 11/12/2024 7:59 AM [facility] Sodium 138 136 - 145 mmol/L 11/12/2024 7:59 AM [facility] Potassium 3.5 3.5 - 4.5 mmol/L 11/12/2024 7:59 AM [facility] Chloride 97(L) 98 - 107 mmol/L 11/12/2024 7:59 AM [facility] CO2 25 22 - 29 mmol/L 11/12/2024 7:59 AM [facility] Glucose 164(H) 70 - 99 mg/dL 11/12/2024 7:59 AM [facility] Calcium 7.8(L) 8.4 - 10.2 mg/dL 11/12/2024 7:59 AM [facility] Anion Gap 16 6 - 16 11/12/2024 7:59 AM [facility] BUN/Creatinine Ratio 4(L) 7 - 23 11/12/2024 7:59 AM [facility] Osmolality Calculated 295 275 - 295 mOsm/kg 11/12/2024 7:59 AM [facility] eGFR by CKD-EPI 8(L) >=90 mL/min/1.7 3 m2 11/12/2024 7:59 AM [facility] Comment:Estimated Glomerular Filtration Rate (eGFR) calculated using the CKD-EPI Creatinine Equation (2020), per the National Kidney Foundation and [place] Society [employer] Neph[employer] recommendations. Blood BLOOD SPECIMEN / Unknown Lab Venipuncture / Unknown 11/12/2024 7:11 AM CDT 11/12/2024 7:44 AM CDT Elroy Holcomb MD LAB - CHEMISTRY ORDERABLES Final Result [facility] [address] [place] [address], [facility] [phone] * (ABNORMAL) GLUCOSE - POINT OF CARE (11/12/2024 7:05 AM CDT) Only the most recent of56 resultswithin the time period is included. Glucose WB/POC 193(H) 70 - 99 mg/dL 11/12/2024 7:06 AM [facility] Specimen Type Venous 11/12/2024 7:06 AM [facility] Blood BLOOD SPECIMEN / Unknown 11/12/2024 7:05 AM CDT 11/12/2024 7:06 AM CDT Elroy Holcomb MD LAB - POINT OF CARE ORDERA BLES Final Result Performing Organization Address [facility]/ZIP Co de Phone Number [address] [address], [facility] [phone] * CARDIAC EKG ORDER (10/29/2024 4:31 PM [...] 71(H) <=35 ng/L 10/28/2024 3:13 AM CDT [facility] Delta Troponin I HS 10/28/2024 3:13 AM CDT [facility] Comment:Delta value intentio tito not calculated. Baseline to 1 hour specimen collection interval exceeded. Blood BLOOD SPECIMEN / Unknown Venipuncture / Unknown 10/28/2024 2:31 AM CDT 10/28/2024 2:37 AM CDT us Savanna Mcfarlane MD LAB - CHEMISTRY ORDERABLES Fi nal Result Performing Organization Address [facility] Co de Phone Number [address] [address], [facility] [phone] * LACTIC ACID BLOOD REFLEX TO REPEAT (10/28/2024 2:31 AM CDT) Only the most recent of5 resultswithin the time period is included. Lactic Acid-Stat 1.9 <=2.0 mmol/L 10/28/2024 3:06 AM CDT [facility] Blood BLOOD SPECIMEN / Unknown Venipuncture / Unknown 10/28/2024 2:31 AM CDT 10/28/2024 2:37 AM CDT us Savanna Mcfarlane MD LAB - CHEMISTRY ORDERABLES Fi nal Result [facility] [address] [place] [address], [facility] [phone] * XR Chest 2Vw (10/27/2024 11:58 PM CDT) Only the most recent of4 resultswithin the time period is included. Anatomical Region Laterality Modality Chest Digital Radiogra phy 10/28/2024 12:0 2 AM CDT Narrative 10/28/2024 3:32 AM CDT PROCEDURE: XR CHEST 2VW, DATE/TIME OF EXAM: 10/27/2024 11:58 PM, LOCATION [facility] INDICATION: R07.9: Chest pain, [...] > Dictated by Branden Jha MD, (radiology administrator). > Dictated by Waterproofing Machine Operator I, Blake Plasencia MD have personally reviewed and interpreted this examination/study. > Interpreting Provider: Blake Plasencia MD on 10/28/2024 3:32 AM Procedure Note Blake Plasencia MD - 10/28/2024 PROCEDURE: XR CHEST 2VW, DATE/TIME OF EXAM: 10/27/2024 11:58 PM, LOCATION [facility] INDICATION: R07.9: Chest pain, [...] > Dictated by Branden Jha MD, (radiology administrator). > Dictated by Waterproofing Machine Operator I, Blake Plasencia MD have personally reviewed and interpreted this examination/study. > Interpreting Provider: Blake Plasencia MD on 10/28/2024 3:32 AM Savanna Mcfarlane MD DIAGNOSTIC IMAGING ORDERABLES Final Result * (ABNORMAL) TROPONIN-I HIGH SENSITIVE BASELINE + 1HR (10/27/2024 11:53 PM CDT) Only the most recent of8 resultswithin the time period is included. [facility] Troponin I High Sensitive 72(H) <=35 ng/L 10/28/2024 12:49 AM [facility] Blood BLOOD SPECIMEN / Unknown Venipuncture / Unknown 10/27/2024 11:53 PM CDT 10/28/2024 12:12 AM CDT Savanna Mcfarlane MD LAB - CHEMISTRY ORDERABLES Fi nal Result [address] [address], [facility] [phone] * (ABNORMAL) CBC W AUTO DIFFERENTIAL (10/27/2024 11:53 PM CDT) Only the most recent of11 resultswithin the time period is included. [facility] WBC 7.8 4.0 - 10.7 x10E9/L 10/28/2024 12:26 AM [facility] RBC Count 3.31(L) 4.30 - 5.80 x10E12/L 10/28/2024 12:26 AM [facility] Hemoglobin 9.0(L) 13.3 - 17.5 g/dL 10/28/2024 12:26 AM [facility] Hematocrit 27.9(L) 38.7 - 51.1 % 10/28/2024 12:26 AM [facility] MCV 84.3 80.0 - 98.0 fL 10/28/2024 12:26 AM [facility] MCH 27.2 26.7 - 33.6 pg 10/28/2024 12:26 AM [facility] MCHC 32.3 31.7 - 36.3 g/dL 10/28/2024 12:26 AM [facility] RDW-CV 15.9(H) 11.3 - 14.8 % 10/28/2024 12:26 AM [facility] Platelet Count 187 150 - 420 x10E9/L 10/28/2024 12:26 AM [facility] MPV 10.2 7.8 - 11.4 fL 10/28/2024 12:26 AM [facility] Neutrophil % 67.0 41.0 - 74.0 % 10/28/2024 12:26 AM [facility] Lymphocyte % 16.4(L) 17.0 - 47.0 % 10/28/2024 12:26 AM [facility] Monocyte % 14.0(H) 3.0 - 11.0 % 10/28/2024 12:26 AM [facility] Eosinophil % 1.9 0.0 - 7.0 % 10/28/2024 12:26 AM [facility] Basophil % 0.1 0.0 - 1.6 % 10/28/2024 12:26 AM [facility] Immature Granulocytes % 0.6 0.0 - 1.0 % 10/28/2024 12:26 AM [facility] Neutrophil Absolute 5.23 1.60 - 7.50 x10E9/L 10/28/2024 12:26 AM [facility] Lymphocyte Absolute 1.28 1.00 - 4.40 x10E9/L 10/28/2024 12:26 AM [facility] Monocyte Absolute 1.09(H) 0.15 - 1.00 x10E9/L 10/28/2024 12:26 AM [facility] Eosinophil Absolute 0.15 0.00 - 0.60 x10E9/L 10/28/2024 12:26 AM [facility] Basophil Absolute 0.01 0.00 - 0.13 x10E9/L 10/28/2024 12:26 AM [facility] Blood BLOOD SPECIMEN / Unknown Venipuncture / Unknown 10/27/2024 11:53 PM CDT 10/28/2024 12:13 AM CDT us Savanna Mcfarlane MD LAB - HEMATOLOGY ORDERABLES F inal Result [facility] [address] [place] [address], [facility] [phone] * (ABNORMAL) COMPREHENSIVE METABOLIC PANEL (10/27/2024 11:53 PM CDT) Only the most recent of13 resultswithin the time period is included. BUN 34(H) 7 - 26 mg/dL 10/28/2024 12:45 AM [facility] Creatinine 7.86(H) 0.71 - 1.16 mg/dL 10/28/2024 12:45 AM [facility] Sodium 132(L) 136 - 145 mmol/L 10/28/2024 12:45 AM [facility] Potassium 3.5 3.5 - 4.5 mmol/L 10/28/2024 12:45 AM [facility] Chloride 95(L) 98 - 107 mmol/L 10/28/2024 12:45 AM [facility] CO2 25 22 - 29 mmol/L 10/28/2024 12:45 AM [facility] Glucose 104(H) 70 - 99 mg/dL 10/28/2024 12:45 AM [facility] Calcium 8.5 8.4 - 10.2 mg/dL 10/28/2024 12:45 AM [facility] Protein Total 5.6(L) 6.0 - 8.3 g/dL 10/28/2024 12:45 AM [facility] Albumin 2.2(L) 3.4 - 5.0 g/dL 10/28/2024 12:45 AM [facility] Bilirubin Total 0.3 0.2 - 1.2 mg/dL 10/28/2024 12:45 AM [facility] Alkaline Phosphatase 104 40 - 150 U/L 10/28/2024 12:45 AM [facility] ALT 56(H) 5 - 55 U/L 10/28/2024 12:45 AM [facility] AST 48(H) 5 - 34 U/L 10/28/2024 12:45 AM [facility] Anion Gap 12 6 - 16 10/28/2024 12:45 AM [facility] BUN/Creatinine Ratio 4(L) 7 - 23 10/28/2024 12:45 AM [facility] Osmolality Calculated 282 275 - 295 mOsm/kg 10/28/2024 12:45 AM [facility] Albumin/Globulin Ratio 0.6(L) 1.1 - 2.3 10/28/2024 12:45 AM [facility] eGFR by CKD-EPI 7(L) >=90 mL/min/1.7 3 m2 10/28/2024 12:45 AM [facility] Comment:Estimated Glomerular Filtration Rate (eGFR) calculated using the CKD-EPI Creatinine Equation (2020), per the National Kidney Foundation and [place] [employer] Nephrology recommendations. Blood BLOOD SPECIMEN / Unknown Venipuncture / Unknown 10/27/2024 11:53 PM CDT 10/28/2024 12:12 AM CDT us Savanna Mcfarlane MD LAB - CHEMISTRY ORDERABLES Formerly [facility] Result [facility] [address] [place] [address], [facility] [phone] * LIPASE BLOOD (10/27/2024 11:53 PM CDT) Only the most recent of3 resultswithin the time period is included. Lipase 41 8 - 78 U/L 10/28/2024 12:45 AM T [facility] Blood BLOOD SPECIMEN / Unknown Venipuncture / Unknown 10/27/2024 11:53 PM CDT 10/28/2024 12:12 AM CDT Narrative [facility] - 10/28/2024 12:45 AM CDT Lipase results from the Matthew Alinity analyzer may not be comparable with other methodologies. us Savanna Mcfarlane MD LAB - CHEMISTRY ORDERABLES Fi nal Result [facility] [address] [place] [address] [phone] * HLA ANTIBODY SCREEN LUM CLASS 2 SAB (10/27/2024 2:40 PM CDT) % PRA 0 11/04/2024 4:03 PM CDT [facility] ([facility]) Class 2 LUM SAB Moderate Risk DQ6 11/04/2024 4:03 PM CDT [facility] ([facility]) Class 2 SAB Test Date [id number] 11/04/2024 4:03 PM CDT [facility] ([facility]) Comment: Methodology - Luminex Bead-Based Immunoassay. This test was developed and its performance characteristics determined by the [facility]. It has not been cleared or [...] high complexity clinical laboratory testing. CLIA ID# [id number] Performed at: [facility], [address] [place] [phone] Support Services Tech: Steven Gonzalez, Ph.D., D([facility]), Blood BLOOD SPECIMEN / Unknown No Charge Blood Draw / Unknown 10/27/2024 2:40 PM CDT 11/01/2024 2:41 PM CDT Alan Davepnort MD LAB - BLOOD BANK ORDERABLES F inal Result [facility] ([facility]) [address] [place] [id number] [place] [address] * HLA ANTIBODY SCREEN LUM CLASS 1 SAB (10/27/2024 2:40 PM CDT) % PRA 0 11/04/2024 4:03 PM CDT [facility] ([facility]) Class 1 SAB Test Date [id number] 11/04/2024 4:03 PM CDT [facility] ([facility]) Comment: Methodology - Luminex Bead-Based Immunoassay. This test was developed and its performance characteristics determined by the [facility]. It has not been cleared or [...] high complexity clinical laboratory testing. CLIA ID# [id number] Performed at: [facility], [address] [place] [phone] Support Services Tech: Steven Gonzalez, Ph.D., D([facility]), Blood BLOOD SPECIMEN / Unknown No Charge Blood Draw / Unknown 10/27/2024 2:40 PM CDT 11/01/2024 2:41 PM CDT Alan Davenport MD LAB - BLOOD BANK ORDERABLES F inal Result Performing Organization Address [facility]/ZIP Co de Phone Number [facility]) [address] [place] [address] * (ABNORMAL) PTH INTACT ([facility]) (10/21/2024 1:11 PM CDT) Only the most recent of2 resultswithin the time period is included. PTH Intact 316.8(H) 8.0 - 77.0 pg/mL 10/21/2024 1:56 PM CDT [facility] Blood BLOOD SPECIMEN / Unknown Lab Venipuncture / Unknown 10/21/2024 1:11 PM CDT 10/21/2024 1:23 PM CDT Becky Wilson MD LAB - CHEMISTRY ORDERABLES Fin al Result [facility] [address] [place] [address], [facility] [phone] * LAB MISC TEST (10/21/2024 1:11 PM CDT) Test Name [id number] 217 PLASMA 10/25/2024 12:29 PM CDT [facility] Test Result See Scanned Report 10/25/2024 12:29 PM CDT [facility] Comment Ref Lab [place] 10/25/2024 12:29 PM CDT [facility] Blood BLOOD SPECIMEN / Unknown Lab Venipuncture / Unknown 10/21/2024 1:11 PM CDT 10/21/2024 1:15 PM CDT Becky Wilson MD LAB SEND OUT Final Result Performing Organization Address City/[facility]/ZIP Co de Phone Number [facility] [address] [place] [address] * MAGNESIUM BLOOD (10/21/2024 1:11 PM CDT) Only the most recent of14 resultswithin the time period is included. [facility] Magnesium 1.6 1.6 - 2.6 mg/dL 10/21/2024 1:49 PM CDT [facility] Blood BLOOD SPECIMEN / Unknown Lab Venipuncture / Unknown 10/21/2024 1:11 PM CDT 10/21/2024 1:20 PM CDT Becky Wilson MD LAB - CHEMISTRY ORDERABLES Fin al Result [address] [address], [facility] [phone] * AMMONIA (10/21/2024 1:11 PM CDT) Ammonia 30 <=72 umol/L 10/21/2024 1:32 PM CDT [facility] Blood BLOOD SPECIMEN / Unknown Lab Venipuncture / Unknown 10/21/2024 1:11 PM CDT 10/21/2024 1:15 PM CDT us Becky Wilson MD LAB - CHEMISTRY ORDERABLES [facility] al Result [facility] [address] [place] [address], [facility] [phone] * CT Head Wo Contrast (10/19/2024 3:03 PM CDT) Only the most recent of4 resultswithin the time period is included. Anatomical Region Laterality Modality Head Computed Tomogra phy 10/19/2024 3:11 PM CDT Impressions 10/19/2024 3:41 PM CDT IMPRESSION: 1.No acute intracranial hemorrhage, territorial infarct, or significant mass effect. Report dictated by Saroj Linda MD, MD (radiology administrator). > Dictated by Waterproofing Machine Operator I, Raymundo Hanson MD have [...] Report dictated by Saroj Linda MD, (radiology administrator). > Dictated by Waterproofing Machine Operator I, Raymundo Hanson MD have personally reviewed and interpreted this examination/study. > Interpreting Provider: Raymundo Hanson MD on 10/19/2024 3:41 PM Alfreda ALEXANDER-[facility] CT ORDERABLES Final Result * EKG 12-LEAD (10/19/2024 2:21 PM CDT) Only the most recent of6 resultswithin the time period is included. Ventricular Rate 64 BPM [facility] Atrial Rate 64 BPM [facility] P-R Interval 146 ms [facility] QRS Duration ms 96 ms [facility] Q-T Interval ms 494 ms [facility] QTC Calculation (Bezet) 509 ms [facility] Calculated P [place] 69 degrees [facility] Calculated R [place] -63 degrees [facility] MUSE Calculated T [place] -90 degrees [facility] M[facility] Interpretation EKG NORMAL SINUS RHYTHM LEFT ANTERIOR FASCICULAR BLOCK T WAVE ABNORMALITY, CONSIDER INFEROLATERAL ISCHEMIA PROLONGED QT ABNORMAL ECG . Confirmed by DOUG CAGLE MD ([id number]) on 10/23/2024 11:38:28 PM [facility] M[facility] 10/19/2024 2:21 PM CDT 10/23/2024 11:38 PM CDT Alfreda Smith PA-C ECG ORDERABLES Edite d Result - Final Performing Organization Address City/[facility]/ZIP Co de Phone Number [facility] * (ABNORMAL) B-TYPE NATRIURETIC PEPTIDE (10/17/2024 7:33 PM CDT) Only the most recent of3 resultswithin the time period is included. BNP 471(H) <100 pg/mL 10/17/2024 10:07 PM CDT [facility] Comment: A decision threshold of [...] LAB - CHEMISTRY ORDERABLES Fi nal Result [facility] [address] [place] [address], [place] [phone] * XR CHEST 1VW PORTABLE (10/09/2024 7:27 PM CDT) Only the most recent of2 resultswithin the time period is included. Anatomical Region Laterality Modality Chest Digital Radiogra phy 10/09/2024 10:4 9 PM CDT Narrative 10/10/2024 1:17 AM CDT PROCEDURE: XR CHEST 1VW PORTABLE, DATE/TIME OF EXAM: 10/09/2024 7:27 PM, LOCATION [facility] INDICATION: R06.02: Short of breath on exertion ADDITIONAL CLINICAL INFORMATION: Ordering Provider Reason For Exam: r/o effusion, pneumonia Technologist Note: Additional: COMPARISON: Chest x-ray from 10/07/2024. FINDINGS/IMPRESSION: There is no focal consolidation, pleural effusion, or pneumothorax.The cardiomediastinal silhouette is normal. No displaced fractures identified. Hardware projecting over thoracic spine. > Dictated by Otis Bocanegra MD (radiology administrator). > Dictated by Waterproofing Machine Operator I, Blake Plasencia MD have personally reviewed and interpreted this examination/study. > Interpreting Provider: Blake Plasencia MD on 10/10/2024 1:17 AM Procedure Note Blake Plasencia MD - 10/10/2024 PROCEDURE: XR CHEST 1VW PORTABLE, DATE/TIME OF EXAM: 10/09/2024 7:27PM, LOCATION [facility] INDICATION: R06.02: Short of breath on exertion ADDITIONAL CLINICAL INFORMATION: Ordering Provider Reason For Exam: r/o effusion, pneumonia Technologist Note: Additional: COMPARISON: Chest x-ray from 10/07/2024. FINDINGS/IMPRESSION: There is no focal consolidation, pleural effusion, or pneumothorax.The cardiomediastinal silhouette is normal. No displaced fracturesidentified. Hardware projecting over thoracic spine. > Dictated by Otis Bocanegra MD (radiology administrator). > Dictated by Waterproofing Machine Operator IBlake MD have personally reviewed and interpreted this examination/study. > Interpreting Provider: Blake Plasencia MD on 10/10/2024 1:17 AM us Anjali Avelar [employer] DIAGNOSTIC IMAGING O RDERABLES Final Result * (ABNORMAL) BLOOD GASES ABBEY + COOX PANEL (10/09/2024 4:39 PM [facility]) Only the most recent of2 resultswithin the time period is included. pH Venous 7.41 7.32 - 7.42 pH 10/09/2024 5:04 PM [facility] pO2 Venous 34(L) 35 - 40 mmHg 10/09/2024 5:04 PM [facility] pCO2 Venous 44 40 - 50 mmHg 10/09/2024 5:04 PM [facility] HCO3 Venous 27.9 20 - 30 mmol/L 10/09/2024 5:04 PM [facility] Base Excess Venous 2.9(H) -2.0 - 2.0 mmol/L 10/09/2024 5:04 PM [facility] Oxyhemoglobin Venous 56.8 % 09/18 5:04 PM [facility] Comment:A^Absorbance Error Deoxyhemoglobin (HHB) Venous % 42.6 % 10/09/2024 5:04 PM [facility] Comment:A^Absorbance Error Methemoglobin <0.8 0.0 - 2.0 % 10/09/2024 5:04 PM [facility] Comment:A^Absorbance Error Carboxyhemoglobin 0.6 0.0 - 2.0 % 2024 5:04 PM [facility] Comment:A^Absorbance Error O2 Content Venous 7.7 Interpret within clinical context ml/dL 10/09/2024 5:04 PM [facility] Hemoglobin by COOX 9.6(L) 12.0 - 17.6 g/dL 10/09/2024 5:04 PM [facility] Comment:A^Absorbance Error O2 Saturation Venous 57(L) >=70 % 09/18 5:04 PM [facility] Comment:A^Absorbance Error FI O2 Mixed Venous 21.0 % 2024 5:04 PM [facility] Blood BLOOD SPECIMEN / Unknown Venipuncture / Unknown 10/09/2024 4:39 PM CDT 10/09/2024 4:56 PM CDT Narrative [facility] - 10/09/2024 5:04 PM CDT Carboxyhemoglobin Normal Concentration: Non-smokers: 0-2%; Smokers: 0-9%; Toxic: >20% Anjali Avelar [employer] LAB - BLOOD GASES OR DERABLES Final Result Performing Organization Address [facility]/ZIP Co de Phone Number [address] [address], [facility] [phone] * PHOSPHORUS BLOOD (10/09/2024 4:39 PM CDT) Only the most recent of8 resultswithin the time period is included. Phosphorus 4.9 2.8 - 5.1 mg/dL 10/09/2024 5:29 PM CDT [facility] Blood BLOOD SPECIMEN / Unknown Venipuncture / Unknown 10/09/2024 4:39 PM CDT 10/09/2024 4:58 PM CDT Anjali Avelar [facility] LAB - CHEMISTRY ORDE RABLES Final Result Performing Organization Address [facility]/ZIP Co de Phone Number [address] [address], [facility] [phone] * (ABNORMAL) URINALYSIS REFLEX MICROSCOPIC REFLEX CULTURE (10/07/2024 6:16 PM CDT) Color UA Yellow Yellow, Straw 10/07/2024 6:39 PM CDT [facility] Clarity UA Ex. Turbid(A) Clear 10/07/2024 6:39 PM CDT [facility] Glucose UA Normal Normal 10/07/2024 6:39 PM CDT [facility] Bilirubin UA Negative Negative 10/07/2024 6:39 PM CDT [facility] Ketone UA Negative Negative 10/07/2024 6:39 PM CDT [facility] Specific [place] UA 1.015 1.005 - 1.030 10/07/2024 6:39 PM CDT [facility] Blood UA 3+(A) Negative 10/07/2024 6:39 PM [facility] pH UA 6.0 5.0 - 8.0 10/07/2024 6:39 PM [facility] Protein UA 2+(A) Negative 10/07/2024 6:39 PM [facility] Urobilinogen UA Normal Normal mg/dL 10/07/2024 6:39 PM [facility] Nitrite UA Negative Negative 10/07/2024 6:39 PM [facility] Leukocyte Esterase UA 500 MOLLY/uL(A) Negative 10/07/2024 6:39 PM [facility] RBC UA 51-100(A) 0 - 5 # /hpf 10/07/2024 6:39 PM [facility] WBC UA >100(A) 0 - 5 # /hpf 10/07/2024 6:39 PM [facility] Bacteria UA 2+(A) None Seen 10/07/2024 6:39 PM [facility] Squamous Epithelial Cells None Seen 0 - 5 /hpf 10/07/2024 6:39 PM [facility] Transitional Epithelial Cell UA 0-2(A) None Seen /HPF 10/07/2024 6:39 PM [facility] Budding Yeast Moderate(A) None seen /hpf 10/07/2024 6:39 PM [facility] Reflex Status Culture to follow 10/07/2024 6:39 PM [facility] Urine URINE SPECIMEN OBTAINED VIA [employer]WELL[employer] URINARY CATHETER / Unknown Collection / Unknown 10/07/2024 6:16 PM CDT 10/07/2024 6:[address] [facility] - 10/07/2024 6:39 PM CDT us Richard Sylvester MD LAB - URINALYSIS ORDERABLES Kenna l Result [facility] [address] [place] [phone], [facility] [phone] * (ABNORMAL) CULTURE URINE (10/07/2024 6:16 PM CDT) Culture Urine 50,000-100,000 CFU/mL Klebsiella pneumoniae(A) MUSHTAQ 10/09/2024 5:54 AM CDT [facility] Urine URINE SPECIMEN OBTAINED VIA [employer]WELL[employer] URINARY CATHETER / Unknown Collection / Unknown 10/07/2024 6:16 PM CDT 10/07/2024 6:19 PM CDT Narrative [facility] - 10/09/2024 5:54 AM CDT [...] LAB - MICROBIOLOGY ORDERABLES Fi nal Result [facility] [address] [place] [address], [facility] [phone] * VAS Arterial Multilevel Le (10/05/2024 12:24 PM CDT) Anatomical Region Laterality Modality Intravascular Ul trasound 10/05/2024 11:3 4 AM CDT Narrative Procedure Note Elroy Holcomb MD - 10/05/2024 us Guy Messina MD VASCULAR LAB ORDERABLES Edit ed Result - Final * (ABNORMAL) HEMOGLOBIN A1C (09/25/2024 5:06 AM CDT) Hemoglobin A1c 5.8(H) <=5.6 % 09/25/2024 8:19 AM CDT [facility] Estimated Average Glucose 120 mg/dL 09/25/2024 8:19 AM CDT [facility] Comment: HbA1c Interpretation: Normal : < 5.7% Pre-diabetes: 5.7-6.4% Diabetes: Equal to or greater than 6.5% Test results diagnostic of diabetes should be repeated for confirmation. Treatment target values recommended by ADA and other clinical organizations should be used to evaluate metabolic control in patients. Reference: [place] Diabetes Association, Standards of Care in Diabetes [...] LAB - CHEMISTRY ORDERABLES F inal Result [facility] [address] [place] [address], [place] [phone] * (ABNORMAL) RENAL FUNCTION PANEL (09/24/2024 7:53 PM CDT) Only the most recent of3 resultswithin the time period is included. BUN 42(H) 7 - 26 mg/dL 09/24/2024 8:47 PM [facility] Creatinine 12.22(H) 0.71 - 1.16 mg/dL 09/24/2024 8:47 PM [facility] Sodium 136 136 - 145 mmol/L 09/24/2024 8:47 PM [facility] Potassium 3.9 3.5 - 4.5 mmol/L 09/24/2024 8:47 PM [facility] Chloride 97(L) 98 - 107 mmol/L 09/24/2024 8:47 PM [facility] CO2 24 22 - 29 mmol/L 09/24/2024 8:47 PM [facility] Glucose 93 70 - 99 mg/dL 09/24/2024 8:47 PM [facility] Albumin 1.8(L) 3.4 - 5.0 g/dL 09/24/2024 8:47 PM [facility] Calcium 8.4 8.4 - 10.2 mg/dL 09/24/2024 8:47 PM [facility] Phosphorus 7.0(H) 2.8 - 5.1 mg/dL 09/24/2024 8:47 PM [facility] Anion Gap 15 6 - 16 09/24/2024 8:47 PM [facility] BUN/Creatinine Ratio 3(L) 7 - 23 09/24/2024 8:47 PM [facility] Osmolality Calculated 292 275 - 295 mOsm/kg 09/24/2024 8:47 PM [facility] eGFR by CKD-EPI 4(L) >=90 mL/min/1.7 3 m2 09/24/2024 8:47 PM [facility] Comment:Estimated Glomerular Filtration Rate (eGFR) calculated using the CKD-EPI Creatinine Equation (2020), per the National Kidney Foundation and [place] Society of Nephrology recommendations. Blood BLOOD SPECIMEN / Unknown Lab Venipuncture / Unknown 09/24/2024 7:53 PM CDT 09/24/2024 8:15 PM T us Guy Messina MD LAB - CHEMISTRY ORDERABLES F inal Result [address] [address], [facility] [phone] * TSH REFLEX FREE T4 (09/24/2024 12:02 PM CDT) Pathologist [facility] TSH 1.567 0.350 - 4.940 uIU/mL 09/24/2024 12:57 PM CDT [facility] Blood BLOOD SPECIMEN / Unknown 09/24/2024 12:02 PM CDT 09/24/2024 12:18 PM CDT Alexis Rodrigez III, MD LAB - CHEMISTRY ORDERAB LES Final Result Performing Organization Address [facility] Co de Phone Number [address] [address], [facility] [phone] * (ABNORMAL) VITAMIN B1 (09/24/2024 12:02 PM CDT) Pathologist [facility] Vitamin B1 Whole Blood 205(H) 70 - 180 nmol/L 09/27/2024 7:16 PM CDT [employer] ([facility]) Comment: INTERPRETIVE INFORMATION: Vitamin B1, Whole Blood This assay measures the concentration of thiamine diphosphate (TDP), the primary active form of vitamin B1. Approximately 90 percent of vitamin B1 present in whole blood is TDP. Thiamine and thiamine monophosphate, which comprise the remaining 10 percent, are not measured. This test was developed and its performance characteristics determined by [facility]. It has not been cleared or approved by the US Food and Drug Administration. This test was performed in a CLIA certified laboratory and is intended for clinical purposes. Performed By: [facility] [address] [place] [address] Dehydrator Operator: Mk Egan MD, PhD CLIA Number: [id number] Blood BLOOD SPECIMEN / Unknown 09/24/2024 12:02 PM CDT 09/24/2024 12:11 PM CDT us Alexis Rodrigez III, MD LAB - CHEMISTRY ORDERAB LES Final Result Performing Organization Address City/[facility] Co de Phone Number [facility]) [address] [place] [phone], [facility] * (ABNORMAL) VITAMIN B12 (09/24/2024 12:02 PM CDT) Vitamin B12 1,151(H) 213 - 816 pg/mL 09/24/2024 12:57 PM CDT [facility] Blood BLOOD SPECIMEN / Unknown 09/24/2024 12:02 PM CDT 09/24/2024 12:18 PM CDT us Alexis Rodrigez III, MD LAB - CHEMISTRY ORDERAB LES Final Result [address] [address], [facility] [phone] * (ABNORMAL) TROPONIN-I HIGH SENSITIVE (09/24/2024 5:08 AM CDT) Pathologist [facility] Troponin I High Sensitive 83(H) <=35 ng/L 09/24/2024 6:10 AM CDT [facility] Blood BLOOD SPECIMEN / Unknown Lab Venipuncture / Unknown 09/24/2024 5:08 AM CDT 09/24/2024 5:28 AM CDT us Jennifer Winn MD LAB - CHEMISTRY ORDERABLES F inal Result Performing Organization Address [facility]/ZIP Co de Phone Number [address] [address], [place] [phone] * CT Lumbar Spine Wo Contrast (09/23/2024 [...] Report dictated by Branden Jha MD (radiology administrator) 09/23/2024 5:45 PM. > Dictated by Waterproofing Machine Operator I, Jana Clark MD have personally reviewed and interpreted this examination/study. > Interpreting Provider: Jana Clark MD on 09/23/2024 6:29 PM Narrative 09/23/2024 6:29 PM CDT PROCEDURE: CT HEAD WO CONTRAST, CT LUMBAR SPINE WO CONTRAST, CT THORACIC SPINE WO CONTRAST, CT CERVICAL SPINE WO CONTRAST, DATE/TIME OF EXAM: 09/23/2024 5:32 PM, LOCATION [facility] INDICATION: W19.XXXA: Fall, initial encounter R41.82: Altered mental status, unspecified altered mental status type ADDITIONAL CLINICAL INFORMATION: Ordering Provider Reason For Exam: r/o bleed, fx (accession [id number]), r/o fx (accession [id number]), r/o fx (accession [id number]), r/o fx (accession [id number]) Technologist Note: None. Additional: 69 year old [...] DATE/TIME OF EXAM: 09/23/2024 5:32 PM, LOCATION [facility] INDICATION: W19.XXXA: Fall, initial encounter R41.82: Altered mental status, unspecified altered mental status type ADDITIONAL CLINICAL INFORMATION: Ordering Provider Reason For Exam: r/o bleed, fx (accession [id number]), r/o fx (accession [id number]), r/o fx (accession [id number]), r/o fx (accession [id number]) Technologist Note: None. Additional: 69 year old [...] Report dictated by Branden Jha MD (radiology administrator) 09/23/2024 5:45 PM. > Dictated by Waterproofing Machine Operator I, Jana Clark MD have [...] Report dictated by Branden Jha MD (radiology administrator) 09/23/2024 5:45 PM. > Dictated by Waterproofing Machine Operator I, Jana Clark MD have personally reviewed and interpreted this examination/study. > Interpreting Provider: Jana Clark MD on 09/23/2024 6:29 PM Narrative 09/23/2024 6:29 PM CDT PROCEDURE: CT HEAD WO CONTRAST, CT LUMBAR SPINE WO CONTRAST, CT THORACIC SPINE WO CONTRAST, CT CERVICAL SPINE WO CONTRAST, DATE/TIME OF EXAM: 09/23/2024 5:32 PM, LOCATION [facility] INDICATION: W19.XXXA: Fall, initial encounter R41.82: Altered mental status, unspecified altered mental status type ADDITIONAL CLINICAL INFORMATION: Ordering Provider Reason For Exam: r/o bleed, fx (accession [id number]), r/o fx (accession [id number]), r/o fx (accession [id number]), r/o fx (accession [id number]) Technologist Note: None. Additional: 69 year old [...] DATE/TIME OF EXAM: 09/23/2024 5:32 PM, LOCATION [facility] INDICATION: W19.XXXA: Fall, initial encounter R41.82: Altered mental status, unspecified altered mental status type ADDITIONAL CLINICAL INFORMATION: Ordering Provider Reason For Exam: r/o bleed, fx (accession [id number]), r/o fx (accession [id number]), r/o fx (accession [id number]), r/o fx (accession [id number]) Technologist Note: None. Additional: 69 year old [...] Report dictated by Branden Jha MD (radiology administrator) 09/23/2024 5:45 PM. > Dictated by Waterproofing Machine Operator I, Jana Clark MD have [...] Report dictated by Branden Jha MD (radiology administrator) 09/23/2024 5:45 PM. > Dictated by Waterproofing Machine Operator I, Jana Clark MD have personally reviewed and interpreted this examination/study. > Interpreting Provider: Jana Clark MD on 09/23/2024 6:29 PM Narrative 09/23/2024 6:29 PM CDT PROCEDURE: CT HEAD WO CONTRAST, CT LUMBAR SPINE WO CONTRAST, CT THORACIC SPINE WO CONTRAST, CT CERVICAL SPINE WO CONTRAST, DATE/TIME OF EXAM: 09/23/2024 5:32 PM, LOCATION [facility] INDICATION: W19.XXXA: Fall, initial encounter R41.82: Altered mental status, unspecified altered mental status type ADDITIONAL CLINICAL INFORMATION: Ordering Provider Reason For Exam: r/o bleed, fx (accession [id number]), r/o fx (accession [id number]), r/o fx (accession [id number]), r/o fx (accession [id number]) Technologist Note: None. Additional: 69 year old [...] DATE/TIME OF EXAM: 09/23/2024 5:32 PM, LOCATION [facility] INDICATION: W19.XXXA: Fall, initial encounter R41.82: Altered mental status, unspecified altered mental status type ADDITIONAL CLINICAL INFORMATION: Ordering Provider Reason For Exam: r/o bleed, fx (accession [id number]), r/o fx (accession [id number]), r/o fx (accession [id number]), r/o fx (accession [id number]) Technologist Note: None. Additional: 69 year old [...] Report dictated by Branden Jha MD (radiology administrator) 09/23/2024 5:45 PM. > Dictated by Waterproofing Machine Operator I, Jana Clark MD have [...] Report dictated by Branden Jha MD, (radiology administrator). > Dictated by Waterproofing Machine Operator I, Nicole Bernabe MD have personally reviewed and interpreted this examination/study. > Interpreting Provider: Nicole Bernabe MD on 09/24/2024 9:17 AM Narrative 09/24/2024 9:17 AM CDT PROCEDURE: XR FOOT LEFT 3VW OR MORE, DATE/TIME OF EXAM: 09/23/2024 5:34 PM, LOCATION [facility] INDICATION: W19.XXXA: Fall, initial [...] MORE, DATE/TIME OF EXAM: 09/23/2024 5:34PM, LOCATION [facility] INDICATION: W19.XXXA: Fall, initial [...] Report dictated by Branden Jha MD, (radiology administrator). > Dictated by Waterproofing Machine Operator I, Nicole Bernabe MD have personally reviewed and interpreted this examination/study. > Interpreting Provider: Nicole Bernabe MD on 09/24/2024 9:17 AM us Moon Lewis PA-C DIAGNOSTIC IMAGING ORDERABLES F inal Result * (ABNORMAL) C-REACTIVE PROTEIN (09/23/2024 4:52 PM CDT) Only the most recent of2 resultswithin the time period is included. C-Reactive Protein 1.6(H) <=0.5 mg/dL 09/23/2024 5:42 PM CDT [facility] Blood BLOOD SPECIMEN / Unknown Venipuncture / Unknown 09/23/2024 4:52 PM CDT 09/23/2024 4:56 PM CDT us Moon Lewis PA-C LAB - CHEMISTRY ORDERABLES Kenna l Result [facility] [address] [place] [address], [place] [phone] * (ABNORMAL) ERYTHROCYTE SEDIMENTATION RATE (09/23/2024 4:52 PM CDT) Only the most recent of2 resultswithin the time period is included. [facility] Erythrocyte Sedimentation Rate Westergren 116(H) 0 - 20 MM/HR 09/23/2024 5:21 PM CDT [facility] Blood BLOOD SPECIMEN / Unknown Venipuncture / Unknown 09/23/2024 4:52 PM CDT 09/23/2024 5:05 PM CDT us Moon Lewis PA-C LAB - HEMATOLOGY ORDERABLES Fin al Result [facility] [address] [place] [address], [place] [phone] * (ABNORMAL) DIFFERENTIAL MANUAL (09/23/2024 4:52 PM CDT) Only the most recent of3 resultswithin the time period is included. [facility] Neutrophil % 78(H) 41 - 74 % 09/23/2024 5:33 PM CDMT. [facility] Lymphocyte % 10(L) 17 - 47 % 09/23/2024 5:33 PM [facility] Monocyte % 10 3 - 11 % 09/23/2024 5:33 PM [facility] Eosinophil % 1 0 - 7 % 09/23/2024 5:33 PM [facility] Metamyelocyte % 1(H) 0% % 5:33 PM [facility] Neutrophil Absolute 8.66(H) 1.60 - 7.50 x10E9/L 09/23/2024 5:33 PM [facility] Lymphocyte Absolute 1.11 1.00 - 4.40 x10E9/L 09/23/2024 5:33 PM [facility] Monocyte Absolute 1.11(H) 0.15 - 1.00 x10E9/L 09/23/2024 5:33 PM [facility] Eosinophil Absolute 0.11 0.00 - 0.60 x10E9/L 09/23/2024 5:33 PM [facility] RBC Morphology REVIEWED 09/23/2024 5:33 PM [facility] Microcytosis MODERATE(A) (none) 09/23/2024 5:33 PM [facility] Blood BLOOD SPECIMEN / Unknown Venipuncture / Unknown 09/23/2024 4:52 PM CDT 09/23/2024 5:05 PM CDT us Moon Lewis PA-C LAB - HEMATOLOGY ORDERABLES Fin al Result [facility] [address] [place] [address], [facility] [phone] * (ABNORMAL) CBC W/O DIFFERENTIAL (09/16/2024 1:01 AM CDT) Only the most recent of10 resultswithin the time period is included. WBC 9.3 4.0 - 10.7 x10E9/L 09/16/2024 1:43 AM [facility] RBC Count 3.37(L) 4.30 - 5.80 x10E12/L 09/16/2024 1:43 AM [facility] Hemoglobin 9.5(L) 13.3 - 17.5 g/dL 09/16/2024 1:43 AM [facility] Hematocrit 28.3(L) 38.7 - 51.1 % 09/16/2024 1:43 AM [facility] MCV 84.0 80.0 - 98.0 fL 09/16/2024 1:43 AM [facility] MCH 28.2 26.7 - 33.6 pg 09/16/2024 1:43 AM [facility] MCHC 33.6 31.7 - 36.3 g/dL 09/16/2024 1:43 AM [facility] RDW-CV 15.7(H) 11.3 - 14.8 % 09/16/2024 1:43 AM [facility] Platelet Count 205 150 - 420 x10E9/L 09/16/2024 1:43 AM CDT [facility] MPV 10.3 7.8 - 11.4 fL 09/16/2024 1:43 AM CDT [facility] Blood BLOOD SPECIMEN / Unknown Lab Venipuncture / Unknown 09/16/2024 1:01 AM CDT 09/16/2024 1:40 AM CDT us Alexis Rodrigez III, MD LAB - HEMATOLOGY ORDERA BLES Final Result Performing Organization Address City/[facility]/ZIP Co de Phone Number [address] [address], [place] [phone] * VANCOMYCIN LEVEL RANDOM (09/15/2024 4:10 PM CDT) Only the most recent of3 resultswithin the time period is included. Vancomycin Random 31.2 Therapeutic Ranges not established for random specimens ug/mL 09/15/2024 6:00 PM CDT [facility] Blood BLOOD SPECIMEN / Unknown Lab Venipuncture / Unknown 09/15/2024 4:10 PM CDT 09/15/2024 4:51 PM CDT Narrative [facility] - 09/15/2024 6:00 PM CDT See institution protocol. us Aureliano Pierce MD LAB - CHEMISTRY ORDERAB LES Final Result Performing Organization Address [facility]/ZIP Co de Phone Number [address] [address], [place] [phone] * LACTIC ACID BLOOD (09/14/2024 3:32 PM CDT) Only the most recent of4 resultswithin the time period is included. Lactic Acid-Stat 2.0 <=2.0 mmol/L 09/14/2024 4:17 PM CDT [facility] Blood BLOOD SPECIMEN / Unknown Lab Venipuncture / Unknown 09/14/2024 3:32 PM CDT 09/14/2024 3:51 PM CDT us Alexis Rodrigez III, MD LAB - CHEMISTRY ORDERAB LES Final Result Performing Organization Address City/[facility]/ZIP Co de Phone Number [address] [address], [facility] [phone] * (ABNORMAL) HGB HCT PANEL (09/14/2024 1:24 PM CDT) Only the most recent of2 resultswithin the time period is included. Hemoglobin 8.7(L) 13.3 - 17.5 g/dL 09/14/2024 1:41 PM CDT [facility] Hematocrit 25.6(L) 38.7 - 51.1 % 09/14/2024 1:41 PM CDT [facility] Blood BLOOD SPECIMEN / Unknown Venipuncture / Unknown 09/14/2024 1:24 PM CDT 09/14/2024 1:30 PM CDT us Alexis Rodrigez III, MD LAB - HEMATOLOGY ORDERA BLES Final Result Performing Organization Address City/[facility]/ZIP Co de Phone Number [address] [address], [facility] [phone] * PATHOLOGY TISSUE (09/14/2024 11:45 AM CDT) Case Report Surgical Pathology Report Case: [id number] Authorizing Provider: Elroy Holcomb MD Collected: 09/14/2024 11:45 AM Ordering Location: [facility] Received: 09/14/2024 12:47 PM Pathologist: Charmaine Myrick MD Specimen: Toe, Left, Left Great Toe 09/16/2024 11:40 AM CDT [facility] Final Diagnosis Toe, left great, amputation (A): - Skin ulceration and necrosis - Acute osteomyelitis - Bone margin negative for acute inflammation - Skin and soft tissue margin appears viable 09/16/2024 11:40 AM CDT [facility] at 1140 CDT Microscopic Description and Comment Microscopic examination substantiates the diagnosis. 09/16/2024 11:40 AM CDT [facility] Clinical History The patient is a 69-year-old man with first toe dry gangrene and history of PAD. 09/16/2024 11:40 AM [facility] Gross Description The requisition and [...] hemorrhage. There are no additional gross lesions. Room Manager sections are submitted as follows: A1-skin and soft tissue to resection margin, medial and dorsal surfaces A2-bony resection margin, decalcified A3-partial proximal cross-section with surrounding mummification, decalcified IKD 09/16/2024 11:40 AM [facility] Pathologist Location at [facility] 09/16/2024 11:40 AM [facility] Disclaimer The performance characteristics of [...] the attending (teaching) pathologist. 09/16/2024 11:40 AM [facility] Embedded Images 09/16/2024 11:40 AM [facility] Amputation, Traumatic (Gross Only) (Toe, Left) 09/14/2024 11:45 AM CDT 09/14/2024 12:47 PM CDT Comment:Pre-op diagnosis: Toe gangrene (HCC) [I96] us Elroy Holcomb MD LAB - PATHOLOGY/CYTOLOGY O RDERABLES Final Result [facility] [address] [place] [address], [facility] [phone] * Peripheral Nerve Block (09/14/2024 10:38 AM [...] fungus isolated MUSHTAQ 10/11/2024 8:05 AM CDT [facility] Fungus Stain No yeast or hyphae seen 10/11/2024 8:05 AM CDT [facility] Microbiology PERITONEAL DIALYSATE SPECIMEN / Unknown Collection / Unknown 09/13/2024 8:08 PM CDT 09/13/2024 8:10 PM CDT us Alexis Rodrigez III, MD LAB - MICROBIOLOGY ORDE RABLES Final Result [facility] [address] [place] [address], [facility] [phone] * DIFFERENTIAL MANUAL FLUID (09/13/2024 8:08 PM CDT) Fluid Source Peritoneal 09/13/2024 9:03 PM CDT [facility] Body Fluid Total Cell Count 100 x10E6/L 09/13/2024 9:03 PM CDT [facility] Neutrophils Fluid Percent 11 % 09/13/2024 9:03 PM CDT [facility] Lymphocytes Fluid Percent 6 % 09/13/2024 9:03 PM CDT [facility] Macrophages Fluid Percent 79 % 09/13/2024 9:03 PM CDT [facility] Mesothelial Cells Fluid Percent 4 % 09/13/2024 9:03 PM CDT [facility] Fluid PERITONEAL FLUID / Unknown Collection / Unknown 09/13/2024 8:08 PM CDT 09/13/2024 8:10 PM CDT Narrative [facility] - 09/13/2024 9:03 PM CDT No reference ranges established for body fluid differential cell counts. The test results must be integrated into the clinical context for interpretation. Alexis Rodrigez III, MD LAB - BODY FLUID ORDERA BLES Final Result [facility] [address] [place] [address], [facility] [phone] * CULTURE FLUID+GRAM STAIN (09/13/2024 8:08 PM CDT) Culture No growth MUSHTAQ 09/17/2024 12:38 AM CDT [facility] Gram Stain Light Polymorphonuclear cells 09/17/2024 12:38 AM CDT [facility] Gram Stain No organisms seen 025 12:38 AM CDT [facility] Other PERITONEAL DIALYSATE SPECIMEN / Unknown Collection / Unknown 09/13/2024 8:08 PM CDT 09/13/2024 8:10 PM CDT Alexis Rodrigez III, MD LAB - MICROBIOLOGY PK ZENG Final Result Performing Organization Address City/[facility]/ZIP Co de Phone Number [facility] [address] [place] [address], [facility] [phone] * CULTURE ANAEROBE (09/13/2024 8:08 PM CDT) Culture No anaerobic organisms isolated MUSTHAQ 09/19/2024 8:26 AM CDT [facility] Microbiology PERITONEAL DIALYSATE SPECIMEN / Unknown Collection / Unknown 09/13/2024 8:08 PM CDT 09/13/2024 8:11 PM CDT Alexis Rodrigez III, MD LAB - MICROBIOLOGY PK ZENG Final Result [facility] [address] [place] [address], [facility] [phone] * CELL COUNT W DIFFERENTIAL FLUID (09/13/2024 8:08 PM CDT) Fluid Source Peritoneal 09/13/2024 9:03 PM CDT [facility] Fluid Appearance CLEAR 09/13/2024 9:03 PM CDT [facility] Fluid Color YELLOW 09/13/2024 9:03 PM CDT [facility] Total Nucleated Cells Fluid 279 Reference Range Not Established x10E6/L 09/13/2024 9:03 PM CDT [facility] RBC Count Fluid <2,000 Reference Range Not Established x10E6/L 09/13/2024 9:03 PM CDT [facility] Fluid PERITONEAL FLUID / Unknown Collection / Unknown 09/13/2024 8:08 PM CDT 09/13/2024 8:10 PM CDT Narrative [facility] - 09/13/2024 9:03 PM CDT No reference ranges established for body fluid cell counts. Any reference ranges provided are derived from published literature. The test results must be integrated into the clinical context for interpretation. us Alexis Rodrigez III, MD LAB - BODY FLUID ORDERA BLES Final Result [facility] [address] [place] [address], [facility] [phone] * VAS Bilateral Venous Duplex Le (09/13/2024 4:34 PM CDT) Anatomical Region Laterality Modality Lower Extremity Ultrasound 09/13/2024 4:18 PM CDT Narrative Procedure Note Lalit Castanno MD - 09/13/2024 us Alexis Rodrigez III, MD VASCULAR LAB ORDERABLES Edited Result - Final * SARS-COV-2 (COVID-19) RAPID (09/13/2024 6:02 AM CDT) COVID-19 PCR Not detected Not detected 09/14/19 25 6:36 AM CDT [facility] Microbiology SPECIMEN FROM NASOPHARYNGEAL STRUCTURE / Unknown Collection / Unknown 09/13/2024 6:02 AM CDT 09/13/2024 6:04 AM CDT Narrative [facility] - 09/13/2024 6:36 AM CDT [...] LAB - MICROBIOLOGY ORDERABLE S Final Result [address] [address], [facility] [phone] * TRANSFUSE RED BLOOD CELL LEUKOREDUCED UNIT(S) [...] Dictated by Sera Chowdhury Dr, MD (radiology administrator). ITerry MD have personally reviewed and interpreted this examination/study. > Interpreting Provider: Terry Ramos MD on 09/13/2024 9:42 AM Narrative 09/13/2024 9:42 AM CDT PROCEDURE: CT ANGIO AORTA FOR DISSECTION, DATE/TIME OF EXAM: 09/13/2024 12:28 AM, LOCATION [facility] INDICATION: R10.9: Abdominal pain, [...] DATE/TIME OF EXAM: 09/13/2024 12:28 AM, LOCATION [facility] INDICATION: R10.9: Abdominal pain, [...] Dictated by Sera Chowdhury Dr, MD (radiology administrator). I, Lien. Constantino Ramos MD have personally reviewed and interpreted this examination/study. > Interpreting Provider: Terry Ramos MD on 09/13/2024 9:42 AM Yuriy Lopez MD CT ORDERABLES Final Result * PREPARE (CROSSMATCH) RBC UNIT(S), 1 Units (09/12/2024 11:30 PM CDT) Unit Description AS1 LR PRBC [facility] Unit ABO O [facility] Unit Rh NEG [facility] Product Number R43 [facility] Unit Donor # [id number] [facility] Unit Status transfused [facility] Product Code [id number] [facility] Blood Type Barcode 9500 [facility] Expiration Date [facility] Blood Bank BLOOD SPECIMEN / Unknown 09/12/2024 11:30 PM CDT 09/12/2024 11:37 PM CDT Result [facility] Yuriy Lopez MD LAB - BLOOD BANK ORDERABLES Final Result Performing Organization Address City/[facility]/ZIP Co de Phone Number [facility] [address] [place] [address], [facility] [phone] * TYPE + SCREEN PANEL (09/12/2024 11:30 PM CDT) Antibody Screen NEG 12:16 AM CDT [facility] ABO Rh O NEG 09/13/2024 12:16 AM CDT [facility] Blood Bank BLOOD SPECIMEN / Unknown Venipuncture / Unknown 09/12/2024 11:30 PM CDT 09/12/2024 11:37 PM CDT Yuriy Lopez MD LAB - BLOOD BANK ORDERABLES Final Result [facility] [address] [place] [address], [facility] [phone] * CULTURE BLOOD (09/12/2024 10:00 PM CDT) Only the most recent of4 resultswithin the time period is included. Culture No growth day 5 MUSHTAQ 09/18/2024 1:30 AM CDT [facility] Blood PERIPHERAL BLOOD / Unknown Venipuncture / Unknown 09/12/2024 10:00 PM CDT 09/12/2024 10:21 PM CDT Yuriy Lopez MD LAB - MICROBIOLOGY ORDERABLE S Final Result [facility] [address] [place] [address], [facility] [phone] * VAS Bilateral Venous Mapping (09/07/2024 2:24 [...] thickening. Report dictated by Freddie Durham MD, (Waterproofing Machine Operator). I, Junior Hurley MD have [...] thickening. Report dictated by Freddie Durham MD, (Waterproofing Machine Operator). I, Junior Hurley MD have personally reviewed and interpreted this examination/study. > Interpreting Provider: Junior Hurley MD on 56:26 AM us Charmaine Khalil MD CT ORDERABLES Final Result * (ABNORMAL) POTASSIUM WHOLE BLD (09/01/2024 3:54 PM CDT) Potassium Whole Blood 3.1(L) 3.5 - 5.5 mmol/L 09/01/2024 4:05 PM CDT [facility] Blood WHOLE BLOOD SPECIMEN / Unknown Venipuncture / Unknown 09/01/2024 3:54 PM CDT 09/01/2024 3:57 PM CDT us Jaqueline Correa Mars WHEEL PRESS[employer] PRODUCER LAB - CHEMISTRY ORDERABL ES Final Result [facility] [address] [place] [address], [facility] [phone] * CCL STAGED PERC CORONARY INTERVENTION, CCL [...] continuing DAPT Cardiology clinic f/u Jaqueline Crews [employer] PRODUCER CV CARDIAC CATH CUPID [place] [facility] Final Result * (ABNORMAL) IRON + TRANSFERRIN PANEL (08/19/2024 1:41 AM CDT) Pathologist [facility] Iron 40(L) 50 - 175 ug/dL 08/19/2024 2:17 AM CDT [facility] Transferrin 116(L) 174 - 382 mg/dL 08/19/2024 2:17 AM CDT [facility] Transferrin Saturation % 28 16 - 50 % 08/19/2024 2:17 AM CDT [facility] TIBC Calculated 145(L) 240 - 450 ug/dL 08/19/2024 2:17 AM CDT [facility] Blood BLOOD SPECIMEN / Unknown Lab Venipuncture / Unknown 08/19/2024 1:41 AM CDT 08/19/2024 2:01 AM CDT Hannah Goodman MD LAB - CHEMISTRY ORDERABLES F inal Result Performing Organization Address City/[facility]/ZIP Co de Phone Number [address] [address], [place] [phone] * (ABNORMAL) FERRITIN (08/19/2024 1:41 AM CDT) Ferritin 560(H) 22 - 275 ng/mL 08/19/2024 2:35 AM CDT [facility] Blood BLOOD SPECIMEN / Unknown Lab Venipuncture / Unknown 08/19/2024 1:41 AM CDT 08/19/2024 2:01 AM CDT Hannah Goodman MD LAB - CHEMISTRY ORDERABLES F inal Result Performing Organization Address [facility] Co de Phone Number [address] [address], [place] [phone] * VITAMIN D 25-HYDROXY (08/19/2024 1:23 AM CDT) Vitamin D, 25 Hydroxy 36.2 30.0 - 80.0 ng/mL 08/19/2024 2:24 AM CDT [facility] Comment: The recommendations for 25-Hydroxy [...] ORDERABLES F inal Result Performing Organization Address City/[facility]/ZIP Co de Phone Number [address] [address], [place] [phone] * CCL PERIPHERAL ANGIOGRAM (08/18/2024 2:33 PM CDT) Anatomical Region Laterality Modality X-Ray Angiograph y Narrative 08/19/2024 2:24 PM CDT Left leg angiogram showed left AT severe diffuse disease with multiple subtotal occlusion and left PT severe diffuse disease with BUDGET AND POLICY ANALYST of distal PT without clear reconstitution. Successful [...] 0.018 CXI microcatheter with multiple wires(Command 18/command 14/Statistical Assistant 200) to get to great toe branch of dorsalis pedis using tubing mill operator [address]. - the AT-DP lesion was dilated with balloons mentioned in figure. - We turn our attention to PT. We crossed the PT BUDGET AND POLICY ANALYST with 0.018 CXI microcatheter with multiple wires (command 18, command 14, Statistical Assistant 200) and able to go to lateral [...] using angiography. Left Posterior Tibial: Ost L HOT PLATE [place] PRESS LABORER to Dist L HOT PLATE [place] PRESS LABORER lesion is 100% stenosed. Stenosis was measured [...] 10% residual stenosis post intervention. Ost L HOT PLATE [place] PRESS LABORER to Dist L HOT PLATE [place] PRESS LABORER lesion: Angioplasty: Angioplasty independent of stent deployment [...] of Plavix. -recommend close follow up with first calender worker and follow up with me in clinic with JOSIANE/TBI. Hannah Goodman MD CV INVASIVE VASCULAR AND IR CUPID PROC Final Result * ACT LR - POCT ([facility]) (08/18/2024 2:08 PM CDT) Only the most recent of4 resultswithin the time period is included. [facility] ACT LR 231 See result comments sec 08/19/2024 9:02 AM CDT [facility] Blood BLOOD SPECIMEN / Unknown 08/18/2024 2:08 PM CDT 08/19/2024 9:02 AM CDT Narrative [facility] - 08/19/2024 9:02 AM CDT ACT-LR Therapeutics ranges are: Cardiac labor standards director = 200-300 seconds Sheath pull = ACT [...] MD LAB - COAGULATION ORDERABLES Final Result [facility] [address] [place] [address], [place] [phone] * HEPATITIS C ANTIBODY (06/16/2024 4:15 PM CDT) [facility] Hepatitis C Antibody Non-react sylvie Non-reac tive 06/16/2024 5:50 PM CDT [facility] Comment:Hepatitis C Antibody screen indicates [...] Alan Davenport MD LAB - CHEMISTRY ORDERABLES Formerly [facility] Result [facility] [address] [place] [address], [facility] [phone] from Last 3 Months or Most Recently Relevant to Health Maintenance Insurance AETNA AETNA MEDICARE [facility] AETNA MEDICARE ADV * Guarantor: GRACE INTERIANO Account Type Relation to Patient Date of Phone Billing Address Personal/Family [facility] [place] [address] * Guarantor: GRACE INTERIANO Account Type Relation to Patient Date of Phone Billing Address Personal/Family [facility] [place] [address] [facility] [place] [address] * Guarantor: GRACE INTERIANO Account Type Relation to Patient Date of Phone Billing Address Personal/Family Spouse [facility] [place] [address] Advance Directives * Full Code (Latest Code [...] 3:16 PM 08/19/2024 4:36 PM Care Teams Tugboat Mate Relationship Specialty Start Date End Date Jeff Strickland MD [address] [place] [address] PCP - General 03/05/18 [place] [id number] [address] Orthopedic Surgery 03/28/17
--- OUTSIDE RECORDS SUMMARY | 2024-11-18 14:10 | XMS_ITS | Clinical Summary ---
Author Organization [facility] Address [address] [place] [address] Care Team Providers Care Finishing Frame Runner Name Role Phone Jeff Strickland MD [...] mouth daily. Active nystatin-triamc inolone (MYCOLOG II) 884233-3.1 UNIT/GM-% Cream 5 Active ondansetron (ZOFRAN-ODT) 4 [...] 10/29/2024 Telephone [facility] - Cardiology [facility] [address] [place] [address] Suly Smith APRN, SENIOR IT ENGINEER 10/15/2024 Telephone [facility] Cardiology [facility] [address] [place] [address] Hannah Goodman MD 10/14/2024 2:40 PM CDT Clinical Support [facility] Cardiology [facility] [address] [facility] [phone] [facility] Cardiology Dressing change (Primary Dx) Discharge [...] st Contact Info) Description 04/11/2025 11:30 AM PROGRAM ASSOCIATE Office Visit [facility] - Cardiology - [place] [address] [place] [address] He Maylin, DO 2 [facility] [address] [address] Health Maintenance Due Date Last Done Comments [...] topic Insurance MEDICARE C AETNA Care Teams Finishing Frame Runner Relationship Specialty Start Date End Date Jeff Strickland MD [address] [place] [address] PCP - General Family Medicine 10/14/24
--- OUTSIDE RECORDS SUMMARY | 2024-11-18 14:10 | XMS_ITS | Encounter Summary ---
Author Organization [facility] Address [facility] [place] [address] Care Team Providers Care Retrimmer Name Role Phone Deandre Bojorquez MD Unavailable [phone] Jeff Strickland MD Primary Care Provider [phone] Reason for Visit * Reason Onset Date Comments Surgery Rescheduled 11/18/2024 Encounter Details Date Type Department Care Team (Late st Contact Info) Description 11/18/2024 Telephone [facility] - Vascular Surgery [address] [place] [address], [place] [phone] Elroy Holcomb MD [address] [place] [address] [place] [address] Surgery Rescheduled Social History Tobacco Use Types Packs/Day Years [...] Recorded Patient Health Questionnaire-2 Score 6 10/05/2024 [facility] Occup[facility] ional Health - Occupational Stress [...] the past 12 m [facility], were you homeless or living in a chcf (including now)? 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 IR procedure will take place on11/23 at 10am in which the patient will be admitted and surgery performed on 11/24 at 930am. shows understanding of change Jhoana Cornelius 11/18/2024 9:32 AM documented in this encounter Plan of Treatment Upcoming Encounters Date Type Department Care Team (Late st Contact Info) Description 11/23/2024 10:00 AM CDT Appointment [facility] [address] [place] [phone] Elroy Holcomb MD [address] [place] [address] 2L [place] [address] 11/24/2024 9:05 AM CDT Hospital Encounter [facility] [address] [place] [phone] Elroy Holcomb MD [address] [place] [address] 2[address] [place] [address] Surgery General 11/24/2024 9:05 AM CDT - 11/24/2024 11:20 AM CDT Surgery [facility] [address] [place] [phone] Elroy Holcomb MD [facility] 2L [place] [address] Bilateral first toe debridement 12/06/2024 10:40 AM CDT [facility] [address] [place] [address], [place] [phone] Marbin Flores MD [address] [facility] DIV OF [place] [address] Niraj Turner MD [address] [place] [address] 2L [place] [address] 2025 1:00 PM OILING MACHINE OPERATOR Office Visit [facility] - Neurology [address] [place] [address] [address] Becky Wilson MD [address] [place] [phone] Scheduled Procedures Name Priority Associated Diagnoses Date/Ti me IRRIGATION/DEBRIDEMENT WOUND/TISSUE Peripheral artery disease 11/24/2024 9:05 AM CDT AMPUTATION TOE Peripheral artery disease 11/24/2024 9:05 AM CDT documented as of this encounter Visit Diagnoses Not on filedocumented in this encounter Care Teams Retrimmer Relationship Specialty Start Date End Date Jeff Strickland MD [address] [place] [address] PCP - General 03/05/18 [place] [address] [place] [address] Orthopedic Surgery 03/28/17 documented as of this encounter
--- OUTSIDE RECORDS SUMMARY | 2024-11-18 14:10 | XMS_ITS | Encounter Summary ---
Author Organization [facility] Address [facility] [place] [address] Care Team Providers Care Drapery Hemmer Automatic Name Role Phone Deandre Bojorquez MD Unavailable [phone] Jeff Strickland MD Primary Care Provider [phone] Encounter Details Date Type Department Care Team (Late st Contact Info) Description 05/29/2023 Lab Requisition [facility] [address] [place] [phone] Alan Davenport MD [facility] [place] [place] [address] Social History Tobacco Use Types Packs/Day Years Used Date Smoking Tobacco: Never Smokeless Tobacco: Never Alcohol Use Standard Drinks/Week Comments Not Currently 0 (1 standard drink = 0.6 oz pur e alcohol) socially in past Sex and Gender Information Value Date Recorded Sex Assigned at Male 07/02/2021 2:37 PM CDT Legal Sex Male 10:14 PM TAWER Gender Identity Male 07/02/2021 2:37 PM CDT [...] 10:00 AM CDT Appointment H IVR [address] [place] [address] Elroy Holcomb MD [address] [place] [address] 2L [place] [address] 11/24/2024 9:05 AM CDT Hospital Encounter [facility] RITO OP [address] [place] [address] Elroy Holcomb MD [address] [place] [address] 2L [place] [address] Surgery General 11/24/2024 9:05 AM CDT - 11/24/2024 11:20 AM CDT Surgery [facility] R[facility] OP [address] [place] [address] Elroy Holcomb MD [address] [place] [address] 2L [place] [address] Bilateral first toe debridement 12/06/2024 10:40 AM CDT Office Visit [facility] - Endocrinology [address] [place] [address], [place] [phone] Marbin Flores MD [address] [facility] DIV OF [place] [address] Niraj Turner MD [address] [facility] 2L Div [place] [address] 2025 1:00 PM TAWER Office Visit [facility] - Neurology [address] [place] [address], [place] [address] Becky Wilson MD [address] [place] [phone] Scheduled Procedures Name Priority Associated Diagnoses Date/Ti [...] Hold HLA Specimen 05/29/2023 10:30 AM CDT [facility] Comment:The Hold HLA specime n has been received into the lab and will be held for 5 years at 4 degrees. Blood BLOOD SPECIMEN / Unknown 05/21/2023 9:24 AM CDT 05/29/2023 9:24 AM CDT Alan Davenport MD LAB - BLOOD BANK ORDERABLES F inal Result [facility] ([facility]) [address] documented in this encounter Visit Diagnoses Not on filedocumented in this encounter Additional Health Concerns Infection Onset Date Last Indicated Resolved Time COVID-19 Under Investigation 09/13/2024 09/13/2024 09/13/2024 6:36 AM CDT documented as of this encounter Care Teams Drapery Hemmer Automatic Relationship Specialty Start Date End Date Jeff Strickland MD [address] [place] [address] PCP - General 03/05/18 [place] [address] [place] [address] Orthopedic Surgery 03/28/17 documented as of this encounter
--- OUTSIDE RECORDS SUMMARY | 2024-11-18 14:10 | XMS_ITS | Patient Health Record ---
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 He denies tobacco, alcohol, or illicit drug abuse The patient is retired. He p reviously worked as a [employer] worker. 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 He denies tobacco, alcohol, or illicit drug abuse The patient is retired. He p reviously worked as a [employer] worker. 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 He denies tobacco, alcohol, or illicit drug abuse The patient is retired. He p reviously worked as a [employer] worker. 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 He denies tobacco, alcohol, or illicit drug abuse The patient is retired. He p reviously worked as a [employer] worker. 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 He denies tobacco, alcohol, or illicit drug abuse The patient is retired. He p reviously worked as a [employer] worker. 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 He denies tobacco, alcohol, or illicit drug abuse The patient is retired. He p reviously worked as a [employer] worker. 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 He denies tobacco, alcohol, or illicit drug abuse The patient is retired. He p reviously worked as a [employer] worker. 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 He denies tobacco, alcohol, or illicit drug abuse The patient is retired. He p reviously worked as a [employer] worker. 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 He denies tobacco, alcohol, or illicit drug abuse The patient is retired. He p reviously worked as a [employer] worker. 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 He denies tobacco, alcohol, or illicit drug abuse The patient is retired. 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 He denies tobacco, alcohol, or illicit drug abuse The patient is retired. He p reviously worked as a [employer] worker. 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 He denies tobacco, alcohol, or illicit drug abuse The patient is retired. 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 He denies tobacco, alcohol, or illicit drug abuse The patient is retired. 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) Active confirmed Localized, primary osteoarthritis of the shoulder region (896439998) Problem Pain in left hip (M25.552) Active confirmed Pain of left hi p joint (finding) (332842799062171) Problem Spondylosis without myelopathy or radiculopathy, lumbar region (M47.816) Active confirmed Lumbosacral spondylosis without myelopathy (61157978) Problem Other intervertebral disc degeneration, lumbar region (M51.36) Active confirmed Degeneration of lumbar intervertebral disc (95344959) Problem Radiculopathy, lumbar region (M54.16) Active confirmed Lumbar radiculopathy (780488013) Problem Radiculopathy, lumbosacral region (M54.17) Active confirmed Lumbosacral radiculopathy (1158394) Problem Osseous stenosis of neural canal of lumbar region (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) Active confirmed Spinal stenosis of lumbar region (89488291) 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 (Z79.01) Active confirmed Long-term curre nt use of anticoagulant (867594011) Problem Other intervertebral disc degeneration, lumbar region [...] Location Date Provider Diagnosis [facility] [address] [place] [phone] 01/12/2024 Sergio Stynowick Radiculopathy, lumba r region M54.16 ; Radiculopathy, lumbosacral region M54.17 ; Other chest pain R07.89 ; Other intervertebral disc degeneration, lumbar region M51.36 ; 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 ; Spondylosis without myelopathy or radiculopathy, lumbar region M47.816 and dedicated intermodal truck driver (current) use of anticoagulants Z79.01 [facility] [address] [place] [phone] 01/19/2024 Sergio Stynowick Radiculopathy, lumba r region M54.16 ; Other intervertebral disc degeneration, lumbar region with discogenic back pain and lower extremity pain M51.362 and 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 [facility] [address] [place] [address] 02/03/2024 Sergio Stynowick Other chest pain R07.89 ; Pain in left knee M25.562 ; Radiculopathy, lumbar region M54.16 ; Other intervertebral disc degeneration, lumbar region M51.36 ; 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 ; Spondylosis without myelopathy or radiculopathy, lumbar region M47.816 and longterm (current) use of anticoagulants Z79.01 [facility] [address] [place] [address] 03/03/2024 Sergio Stynowick Pain in left knee M25.562 ; Primary osteoarthritis, unspecified shoulder M19.019 ; Other chest pain R07.89 ; Radiculopathy, lumbar region M54.16 ; Other intervertebral disc degeneration, lumbar region M51.36 ; 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 ; Spondylosis without myelopathy or radiculopathy, lumbar region M47.816 ; longterm (current) use of anticoagulants Z79.01 ; Pain in right shoulder M25.511 and Pain in left shoulder M25.512 [facility] [address] [place] [address] 03/08/2024 Sergio Stynowick Primary osteoarthritis, unspecified shoulder M19.019 [facility] [address] [place] [phone] 03/31/2024 Sergio Schmitzick ASSESSMENTS Encounter Date Diagnosis [...] of lumbar region (ICD-10 - M99.33) 01/12/2024 dedicated 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 I made the patient aware that he will be at an increased risk for a thromboembolic event during this time and he is willing to accept this risk. The patient was instructed to notify his primary care physician and/or customer relations assistant to obtain clearance prior to discontinuing this medication. 02/03/2024 longterm (current) use of anticoagulants (ICD-10 - Z79.01) 03/03/2024 Spondylosis without myelopathy or radiculopathy, lumbar region (ICD-10 - M47.816) 03/03/2024 dedicated intermodal truck driver (current) use of anticoagulants [...] Coverage End Date [employer] MED[employer]ARE [address] [place] [address] [id number] GRACE INTERIANO Self - patient is the insured MEDICAL (GENERAL) HISTORY Medical History History ICD Code Hypertension Hypothyroidism Diabetes type 2 Gastroesophageal reflux disease (GERD) Renal cell cancer Chronic kidney disease stage 4 Sleep apnea CHF Surgical History Surgery Date(Month/Year) Right total knee arthroplasty 08/2015 Cholecystectomy Hernia repair 2019 Cardiac stent 07/2020
--- OUTSIDE RECORDS SUMMARY | 2024-11-18 14:11 | XMS_ITS | Encounter Summary ---
Author Organization [facility] Address [address] [place] [address] Care Team Providers Care Organic Gardening Teacher Name Role Phone Deandre Bojorquez MD Unavailable [phone] Jeff Strickland MD Primary Care Provider [phone] Encounter Details Date Type Department Care Team (Late st Contact Info) Description 09/24/2024 Results Follow-Up [facility] Early Admission Unit [address] [place] [phone] Angel Crook MD [address] [place] [address] Social History Tobacco Use Types Packs/Day Years [...] and heating? Not hard at all 09/24/2024 [facility] [place] [facility] Occupat ional Health - Occupational Stress [...] any time in the past 12 m [facility], were you homeless or living in a long-term (including now)? 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 Gender Identity Male 07/02/2021 2:37 PM [...] Info) Description 11/23/2024 10:00 AM CDT Appointment [facility] IVR [address] [place] [address] Elroy Holcomb MD [facility] 2L [place] [address] 11/24/2024 9:05 AM CDT Hospital Encounter [facility] RITO OP [address] [place] [address] Elroy Holcomb MD [address] [place] [address] 2L [place] [address] Surgery General 11/24/2024 9:05 AM CDT - 11/24/2024 11:20 AM CDT Surgery [facility] RITO OP [address] [place] [address] Elroy Holcomb MD [address] [facility] 2L [place] [address] Bilateral first toe debridement 12/06/2024 10:40 AM CDT Office Visit [facility] - Endocrinology [address] [place] [address], [place] [phone] Marbin Flores MD [address] [facility] DIV [place] [address] Niraj Turner MD [facility] 2L [place] [address] 2025 1:00 PM MICROELECTRONICS ENGINEER Office Visit [facility] - Neurology [address] [place] [address], [place] [address] Becky Wilson MD [address] [place] [phone] Scheduled Procedures Name Priority Associated Diagnoses Date/Ti me IRRIGATION/DEBRIDEMENT WOUND/TISSUE Peripheral artery disease 11/24/2024 9:05 AM CDT AMPUTATION TOE Peripheral artery disease 11/24/2024 9:05 AM CDT documented as of this encounter Visit Diagnoses Not on filedocumented in this encounter Care Teams Organic Gardening Teacher Relationship Specialty Start Date End Date Jeff Strickland MD [address] [place] [address] PCP - General 03/05/18 [place] [address] [address] Orthopedic Surgery 03/28/17 documented as of this encounter
--- OUTSIDE RECORDS SUMMARY | 2024-11-18 14:11 | XMS_ITS | Encounter Summary ---
Author Organization [facility] Address [facility] [place] [address] Care Team Providers Care It Operations Manager Name Role Phone Deandre Bojorquez MD Unavailable [phone] Jeff Strickland MD Primary Care Provider [phone] Encounter Details Date Type Department Care Team (Late st Contact Info) Description 04/29/2024 Lab Requisition [facility] [address] [place] [phone] Alan Davenport MD [facility] OF ABD [place] [address] Social History Tobacco Use Types Packs/Day Years Used Date Smoking Tobacco: Never Smokeless Tobacco: Never Alcohol Use Standard Drinks/Week Comments Not Currently 0 (1 standard drink = 0.6 oz pur e alcohol) socially in past Sex and Gender Information Value Date Recorded Sex Assigned at Male 07/02/2021 2:37 PM CDT Legal Sex Male 10:14 PM WIRELINE FIELD OPERATOR Gender Identity Male 07/02/2021 2:37 PM [...] 10:00 AM CDT Appointment H IVR [address] [place] [address] Elroy Holcomb MD [address] [place] [address] 2L [place] [address] 11/24/2024 9:05 AM CDT Hospital Encounter [facility] RIT[facility] OP [address] [place] [address] Elroy Holcomb MD [address] [place] [address] 2L [place] [address] Surgery General 11/24/2024 9:05 AM CDT - 11/24/2024 11:20 AM CDT Surgery [facility] RIT[facility] OP [address] [place] [address] Elroy Holcomb MD [address] [place] [address] 2L [place] [address] Bilateral first toe debridement 12/06/2024 10:40 AM CDT Office Visit [facility] - Endocrinology [address] [place] [address], [place] [address] Marbin Flores MD 1201 [facility] DIV OF ABD [place] [address] Niraj Turner MD 1225 [facility] 2L [place] [address] 2025 1:00 PM WIRELINE FIELD OPERATOR Office Visit [facility] - Neurology [address] [place] [address], [place] [address] Becky Wilson MD [address] [place] [phone] Scheduled Procedures Name Priority Associated Diagnoses Date/Ti [...] Hold HLA Specimen 04/29/2024 3:02 PM CDT [facility] Comment:The Hold HLA specime n has been received into the lab and will be held for 5 years at 4 degrees. Blood BLOOD SPECIMEN / Unknown 04/27/2024 1:48 PM CDT 04/29/2024 1:49 PM CDT Alan Davenport MD LAB - BLOOD BANK ORDERABLES F inal Result [facility] ([facility]) [address] documented in this encounter Visit Diagnoses Not on filedocumented in this encounter Additional Health Concerns Infection Onset Date Last Indicated Resolved Time COVID-19 Under Investigation 09/13/2024 09/13/2024 09/13/2024 6:36 AM CDT documented as of this encounter Care Teams It Operations Manager Relationship Specialty Start Date End Date Jeff Strickland MD [address] [place] [address] PCP - General 03/05/18 [place] [address] [place] [address] Orthopedic Surgery 03/28/17 documented as of this encounter
--- OUTSIDE RECORDS SUMMARY | 2024-11-18 14:11 | XMS_ITS ---
Author Organization [facility] Address [facility] [place] [address] Care Team Providers Care Roller Skate Assembler Name Role Phone Jeff Strickland MD Primary Care Provider Chan Nicholas MD Unavailable [phone] Alan Mccall MD Unavailable [phone] Pepito Haro MD PhD Unavailable Solange Guido MD Unavailable [phone] Active Problems Problem Noted Date Diagnosed Date [...] damage Assessment & Plan (03/09/2024 6:25 PM ADMINISTRATION SPECIALIST): Vision OD trends mild improvement, though [...] 2 weeks and have patient return to [facility] retina in 4 weeks for [...] 03/26/2021 Assessment & Plan (03/26/2021 1:17 PM ADMINISTRATION SPECIALIST): Enlarged mild sella turcica on a [...] units Assessment & Plan (03/26/2021 1:17 PM ADMINISTRATION SPECIALIST): Chronic, uncontrolled, improving A1c today 7.7 [...] WNL Assessment & Plan (03/26/2021 1:16 PM ADMINISTRATION SPECIALIST): Pt currently on Levothyroxine 112 mcg [...] 11/18/2018 Assessment & Plan (01/21/2019 2:02 PM ADMINISTRATION SPECIALIST): Symptomatic. Will request for esophageal manometry. [...] well Assessment & Plan (03/26/2021 1:16 PM ADMINISTRATION SPECIALIST): On statin therapy Tolerating well Last [...] nephrectomy. 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 [id number] Current Treatment and Therapy Plans No current [...] were not included. Kendall Carl 1955 Referring Magnetic Tape Typewriter Operator: Alan Mccall Dialysis Info: NOD GFR 13 Type: Time: (Not currently on dialysis) days Blood Type: O NEG Body mass index is 37.36 kg/m . ALERTS Vision Rehabilitation Therapist: needs to establish Past Medical History: Diagnosis Date Arthropathy RA. Dr Strickland manages. 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 CKD (chronic kidney disease), stage V Community acquired pneumonia 2018 [facility] hospitalized. Diabetes mellitus 20 years. Lantus pen. Esophageal reflux takes med Hypercholesteremia 5-10 yrs meds Hypertension takes meds Hypothyroidism meds 20 years Kidney stones 5-6 years ago had 2 in the same year. Malignancy right kidney 2012 Obstructive sleep apnea 3 years. [facility]. Cannont remember doctors name Renal cell [...] impression of this manager social media that Kendall Carl has several positive factors for Kidney transplant candidacy from a psychosocial perspective. Patient appears to have appropriate knowledge of illness. Patient has sufficient insurance coverage and stable financial situation for post transplant needs. No concerns regarding substance abuse, legal issues, or mental health needs. Patient has adequate support system and appropriate discharge plan. Plan: hair worker to provide supportive services as needed. Patient appears to be a reasonable candidate for transplant from a psychosocial perspective. -Post transplant arrangement forms are needed prior to being listed. -Updated toxicology results needed, per protocol Psychiatric Consult Recommended: No Transplant Whiskey Proof Reader: Joy Tam LCSW RD: 11/09/2019 BMI= 36.2, [...] 11/18/201803/25 Assessment & Plan (01/21/2019 2:02 PM ADMINISTRATION SPECIALIST): The pain is persistent. The patient [...] had extensive cardiac workup by the hospital chief executive officer including coronary angiogram. He has chest [...]
--- OUTSIDE RECORDS SUMMARY | 2024-11-18 14:11 | XMS_ITS | Encounter Summary ---
Author Organization [facility] Address [facility] [place] [address] Care Team Providers Care Supervisor Word Processing Name Role Phone Deandre Bojorquez MD Unavailable [phone] Jeff Strickland MD Primary Care Provider [phone] Encounter Details Date Type Department Care Team (Late st Contact Info) Description 04/10/2023 Lab Requisition [facility] MAIN LAB [address] [place] [phone] Alan Davenport MD [facility]1 [facility] OF [place]BD [place] [address] Social History Tobacco Use Types Packs/Day Years Used Date Smoking Tobacco: Never Smokeless Tobacco: Never Alcohol Use Standard Drinks/Week Comments Not Currently 0 (1 standard drink = 0.6 oz pur e alcohol) socially in past Sex and Gender Information Value Date Recorded Sex Assigned at Male 07/02/2021 2:37 PM CDT Legal Sex Male 10:14 PM COSTUME TECHNICIAN Gender Identity Male 07/02/2021 2:37 PM [...] 12:15 PM CDT Moniqeu Suárez RN documented as of this encounter Mental Status * Does person have difficulty concentrating/remembering/making decisions? Answer Entry Date Author No 08/04/2020 12:15 PM CDT Monique Suárez RN documented in this encounter Plan of Treatment Upcoming Encounters Date Type Department Care Team (Late st Contact Info) Description 11/23/2024 10:00 AM CDT Appointment H IVR [address] [place] [address] Elroy Holcomb MD [address] [place] [address] 2L DIV [place] [address] 11/24/2024 9:05 AM CDT Hospital Encounter [facility] RITO OP [address] [place] [address] Elroy Holcomb MD [address] [place] [address] 2L [place] [address] Surgery General 11/24/2024 9:05 AM CDT - 11/24/2024 11:20 AM CDT Surgery [facility] RITO OP [address] [place] [address] Elroy Holcomb MD [address] [place] [address] 2L [place] [address] Bilateral first toe debridement 12/06/2024 10:40 AM CDT Office Visit [facility] - Endocrinology [address] [place] [address], [place] [address] Marbin Flores MD 1201 [facility] DIV OF ABD [place] [address] Niraj Turner MD 1225 [facility] 2L [place] [address] 2025 1:00 PM COSTUME TECHNICIAN Office Visit [facility] - Neurology [address] [place] [address], [place] [address] Becky Wilson MD [address] [place] [phone] Scheduled Procedures Name Priority Associated Diagnoses Date/Ti me IRRIGATION/DEBRIDEMENT WOUND/TISSUE Peripheral artery disease 11/24/2024 9:05 AM CDT AMPUTATION TOE Peripheral artery disease 11/24/2024 9:05 AM CDT documented as of this encounter Procedures Procedure Name Priority Date/Time Associated Diagnosis Comments HOLD HLA SPECIMEN Routine 04/02/2023 3:0 1 PM COSTUME TECHNICIAN documented in this encounter Results * HOLD HLA SPECIMEN (04/02/2023 3:01 PM COSTUME TECHNICIAN) Hold HLA Specimen 04/10/2023 4:01 PM COSTUME TECHNICIAN [facility] Comment:The Hold HLA specime n has been received into the lab and will be held for 5 years at 4 degrees. Blood BLOOD SPECIMEN / Unknown 04/02/2023 3:01 PM COSTUME TECHNICIAN 04/10/2023 3:01 PM COSTUME TECHNICIAN Alan Davenport MD LAB - BLOOD BANK ORDERABLES F inal Result [facility] ([facility]) [address] [place] [address], [facility] documented in this encounter Visit Diagnoses Not on filedocumented in this encounter Additional Health Concerns Infection Onset Date Last Indicated Resolved Time COVID-19 Under Investigation 09/13/2024 09/13/2024 09/13/2024 6:36 AM CDT documented as of this encounter Care Teams Supervisor Word Processing Relationship Specialty Start Date End Date Jeff Strickland MD [address] [place] [address] PCP - General 03/05/18 [place] [address] [place] [address] Orthopedic Surgery 03/28/17 documented as of this encounter
--- OUTSIDE RECORDS SUMMARY | 2024-11-18 14:11 | XMS_ITS | Clinical Summary ---
Author Organization [facility] Address [address] [address] Phone Care Team Providers Care Scoreboard Operator Name Role Phone Jeff Strickland MD Primary Care Provider [phone] Allergies No known active allergies Medications levothyroxine [...] tablet 3 0 Active Continuous Blood Gluc Jacquard Card Cutter (FreeStyle Em Swisher) device 1 each daily 0 Active Continuous Blood Gluc Sensor (FreeStyle Em Sensor System) misc 1 each once every 2 weeks 0 Active Lancets (OneTouch Delica Plus [id number]) misc OneTouch Delica Plus Lancet 33 gauge [...] 11/10/2019 Overview (12/17/2019): Kendall Carl 1955 Referring Auto Parts Clerk: Alan Mccall Dialysis Info: NOD GFR 13 Type: Time: (Not currently on dialysis) days Blood Type: O NEG Body mass index is 37.36 kg/m . ALERTS Cipher Expert: needs to establish Past Medical History: Diagnosis Date Arthropathy RA. Dr Strickland manages. 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 CKD (chronic kidney disease), stage V Community acquired pneumonia 2018 [facility] hospitalized. Diabetes mellitus 20 years. Lantus pen. Esophageal reflux takes med Hypercholesteremia 5-10 yrs meds Hypertension takes meds Hypothyroidism meds 20 years Kidney stones 5-6 years ago had 2 in the same year. Malignancy right kidney 2012 Obstructive sleep apnea 3 years. [facility]. Angela remember doctors name Renal cell [...] the impression of this director of social services that Kendall Gillris has several positive factors for Kidney transplant candidacy from a psychosocial perspective. Patient appears to have appropriate knowledge of illness. Patient has sufficient insurance coverage and stable financial situation for post transplant needs. No concerns regarding substance abuse, legal issues, or mental health needs. Patient has adequate support system and appropriate discharge plan. Plan: clerical warehouse worker to provide supportive services as needed. Patient appears to be a reasonable candidate for transplant from a psychosocial perspective. -Post transplant arrangement forms are needed prior to being listed. -Updated toxicology results needed, per protocol Psychiatric Consult Recommended: No Transplant Anime Designer: Joy Tam LCSW RD: 11/09/2019 BMI= [...] nephrectomy. 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 [id number] Immunizations Immunization Administration Dates Next Due Influenza [...] Insurance [employer] PM INTERFACED INSURANCE Care Teams Scoreboard Operator Relationship Specialty Start Date End Date Jeff Strickland MD 6812 [facility] 162 [facility] 120 [place] [address] PCP - General Internal Medicine 07/15/18
--- OUTSIDE RECORDS SUMMARY | 2024-11-18 14:11 | XMS_ITS | Encounter Summary ---
Author Organization [facility] Address [address] [place] [address] Care Team Providers Care Film Technician Name Role Phone Deandre Bojorquez MD Unavailable [phone] Jeff Strickland MD Primary Care Provider [phone] Encounter Details Date Type Department Care Team (Late st Contact Info) Description 03/12/2024 Lab Requisition [facility] MAIN LAB [address] [place] [phone] Alan Davenport MD [facility]1 [facility] [place] [address] Social History Tobacco Use Types Packs/Day Years Used Date Smoking Tobacco: Never Smokeless Tobacco: Never Alcohol Use Standard Drinks/Week Comments Not Currently 0 (1 standard drink = 0.6 oz pur e alcohol) socially in past Sex and Gender Information Value Date Recorded Sex Assigned at Male 07/02/2021 2:37 PM CDT Legal Sex Male 10:14 PM FINAL ASSEMBLY INSPECTOR Gender Identity Male 07/02/2021 2:37 PM [...] 10:00 AM CDT Appointment H IVR [address] [place] [address] Elroy Holcomb MD [address] [place] [address] 2L [place] [address] 11/24/2024 9:05 AM CDT Hospital Encounter [facility] RITO OP [address] [place] [address] Elroy Holcomb MD [address] [place] [address] 2L [place] [address] Surgery General 11/24/2024 9:05 AM CDT - 11/24/2024 11:20 AM CDT Surgery [facility] RITO OP [address] [place] [address] Elroy Holcomb MD [address] [place] [address] 2L [place] [address] Bilateral first toe debridement 12/06/2024 10:40 AM CDT Office Visit [facility] - Endocrinology [address] [place] [address], [place] [phone] Marbin Flores MD 1201 [facility] DIV [place] [address] Niraj Turner MD [address] [facility] 2L [place] [address] 2025 1:00 PM FINAL ASSEMBLY INSPECTOR Office Visit [facility] - Neurology [address] [place] [address], [place] [address] Becky Wilson MD [address] [place] [phone] Scheduled Procedures Name Priority Associated Diagnoses Date/Ti me IRRIGATION/DEBRIDEMENT WOUND/TISSUE Peripheral artery disease 11/24/2024 9:05 AM CDT AMPUTATION TOE Peripheral artery disease 11/24/2024 9:05 AM CDT documented as of this encounter Procedures Procedure Name Priority Date/Time Associated Diagnosis Comments HOLD HLA SPECIMEN Routine 03/05/2024 1:4 0 PM FINAL ASSEMBLY INSPECTOR documented in this encounter Results * HOLD HLA SPECIMEN (03/05/2024 1:40 PM FINAL ASSEMBLY INSPECTOR) Hold HLA Specimen 03/12/2024 3:00 PM FINAL ASSEMBLY INSPECTOR [facility] Comment:The Hold HLA specime n has been received into the lab and will be held for 5 years at 4 degrees. Blood BLOOD SPECIMEN / Unknown 03/05/2024 1:40 PM FINAL ASSEMBLY INSPECTOR 03/12/2024 1:40 PM FINAL ASSEMBLY INSPECTOR Alan Davenport MD LAB - BLOOD BANK ORDERABLES F inal Result [facility] ([facility]) [address] [place] [address], [facility] documented in this encounter Visit Diagnoses Not on filedocumented in this encounter Additional Health Concerns Infection Onset Date Last Indicated Resolved Time COVID-19 Under Investigation 09/13/2024 09/13/2024 09/13/2024 6:36 AM CDT documented as of this encounter Care Teams Film Technician Relationship Specialty Start Date End Date Jeff Strickland MD [address] [place] [address] PCP - General 03/05/18 [place] [address] [place] [address] Orthopedic Surgery 03/28/17 documented as of this encounter
--- OUTSIDE RECORDS SUMMARY | 2024-11-18 14:11 | XMS_ITS | Encounter Summary ---
Author Organization [facility] Address [employer] [place] [address] Care Team Providers Care Blocker And Sewer Name Role Phone Deandre Bojorquez MD Unavailable [phone] Jeff Strickland MD Primary Care Provider [phone] Encounter Details Date Type Department Care Team (Late st Contact Info) Description 06/25/2024 Lab Requisition [facility] MAIN LAB [address] [place] [address] Alan Davenport MD [facility] OF [place] [address] Social History Tobacco Use Types Packs/Day Years Used Date Smoking Tobacco: Never Smokeless Tobacco: Never Alcohol Use Standard Drinks/Week Comments Not Currently 0 (1 standard drink = 0.6 oz pur e alcohol) socially in past Sex and Gender Information Value Date Recorded Sex Assigned at Male 07/02/2021 2:37 PM CDT Legal Sex Male 10:14 PM LEVER MILLER Gender Identity Male 07/02/2021 2:37 PM CDT [...] 10:00 AM CDT Appointment H IVR [address] [place] [address] Elroy Holcomb MD [address] [place] [address] 2L [place] [address] 11/24/2024 9:05 AM CDT Hospital Encounter [facility] RITO OP [address] [place] [address] Elroy Holcomb MD [address] [place] [address] 2L [place] [address] Surgery General 11/24/2024 9:05 AM CDT - 11/24/2024 11:20 AM CDT Surgery [facility] RITO OP [address] [place] [address] Elroy Holcomb MD [address] [place] [address] 2L [place] [address] Bilateral first toe debridement 12/06/2024 10:40 AM CDT Office Visit [facility] - Endocrinology [address] [place] [address], [place] [address] Marbin Flores MD 1201 [facility] DIV OF [place] [address] Niraj Turner MD 1225 [facility] 2L [place] [address] 2025 1:00 PM LEVER MILLER Office Visit [facility] - Neurology [address] [place] [address] [address] Becky Wilson MD [address] [place] [phone] Scheduled Procedures Name Priority Associated Diagnoses Date/Ti [...] Hold HLA Specimen 06/25/2024 12:32 PM CDT [facility] ([facility]) Comment:The Hold HLA specime n has been received into the lab and will be held for 5 years at 4 degrees. Blood BLOOD SPECIMEN / Unknown 06/22/2024 11:05 AM CDT 06/25/2024 11:05 AM CDT Alan Davenport MD LAB - BLOOD BANK ORDERABLES F inal Result [facility] ([facility]) [address] documented in this encounter Visit Diagnoses Not on filedocumented in this encounter Additional Health Concerns Infection Onset Date Last Indicated Resolved Time COVID-19 Under Investigation 09/13/2024 09/13/2024 09/13/2024 6:36 AM CDT documented as of this encounter Care Teams Blocker And Sewer Relationship Specialty Start Date End Date Jeff Strickland MD [address] [place] [address] PCP - General 03/05/18 [place] [address] [place] [address] Orthopedic Surgery 03/28/17 documented as of this encounter
--- OUTSIDE RECORDS SUMMARY | 2024-11-18 14:11 | XMS_ITS | Encounter Summary ---
Author Organization [facility] Address [address] [place] [address] Phone Care Team Providers Care Mailing Clerk Name Role Phone Jeff Strickland MD Primary Care Provider Chan Nicholas MD Unavailable Alan Mccall MD Unavailable [phone] Lorna Lantigua MD Unavailable Juliette Savage RN Unavailable Pepito Haro MD PhD Unavailable [phone] Solange Guido MD Unavailable [phone] Letha Gil RN Unavailable Encounter Details Date Type Department Care Team (Late st Contact Info) Description 05/02/2021 Ophth Exam [facility] Medicine Ophthalmology [address] [place] [address] 1st [place] [phone] Corina Ventura MD PhD [address] [address] Social History Tobacco Use Types [...] Legal Sex Male 2:23 AM DIRECTOR OF CHILD WELFARE SERVICES Gender Identity Not on file Sexual Orientation [...] COVID: Suspected 03/24/2023 03/24/2023 03/24/2023 5:45 PM DIRECTOR OF CHILD WELFARE SERVICES COVID19 03/24/2023 03/24/2023 04/08/2023 3:06 AM DIRECTOR OF CHILD WELFARE SERVICES COVID: Recovered Comment:Added based on recent COVID infection. 04/08/2023 04/10/2023 07/07/2023 3:06 AM C DT COVID: Suspected 04/10/2024 04/10/2024 04/11/2024 1:24 AM DIRECTOR OF CHILD WELFARE SERVICES C. difficile suspected 04/11/2024 04/11/202404/11 1:21 PM DIRECTOR OF CHILD WELFARE SERVICES documented as of this encounter Eye Exam [...] arcade Normal Periphery Normal Normal Care Teams Mailing Clerk Relationship Specialty Start Date End Date Jeff Strickland MD [address] [address] PCP - General Family Medicine 04/02/18 Chan Nicholas MD [address] [place] [address] [id number] Consulting Physician Gastroenterology 11/24/18 Alan Mccall MD [address] [place] [address] [address] Referring Physician Nephrology 11/24/18 Lorna Lantigua MD [facility] [address] [address] Consulting Physician Cardiology 11/24/18 07/22/23 Juliette Savage, RN [address] [place] [address] Nurse Navigator 06/04/21 03/14/22 Pepito Haro MD PhD [address] [place] [address] Consulting Physician Neurosurgery 12/03/22 Solange Guido MD [address] [facility] [place] [address] [place] [address] Referring Physician Cardiovascular Disease 07/23/23 Letha Gil, RN 4590 [facility] 5300 [place] [address] [employer]OP Outpatient Customs Manager 04/14/24 04/18/24 documented as of this encounter
--- OUTSIDE RECORDS SUMMARY | 2024-11-18 14:11 | XMS_ITS | Clinical Summary ---
Author Organization [facility] Address [facility] [place] [address] Care Team Providers Care Hotel Casino Floorperson Name Role Phone Jeff Strickland MD Primary [...] by mouth nightly at bedtime. Active Multiple Vitamins-[place] als (PRESERVISION AREDS 2 OR) Take 1 [...] 0.6 oz pur e alcohol) [facility] Utilities Answer Date Recorded In the past 12 months has th e electric, gas, oil, or water [employer] threatened to shut off services in [...] in a senior living (including now)? No 05/02/2023 Sex and Gender Information Value Date Recorded Sex Assigned at Not on file Legal Sex Male 10:10 AM TRANSITION SPECIALIST Gender Identity Not on file Sexual [...] PPSV23) 08/09/2021 08/09/2020 COVID-19 Vaccine (4 - season) 2024 05/05/2020, 04/20/2020, 03/20/2020 Influenza Adult (#1) 2024 05/03/2023, 10/29/2020, 01/17/2020, Additional history exists DTaP, [...] discharge from hospital Lifestyle No Alice Rizzo, [facility] Insurance AETNA MEDICARE Advance Directives * Full Code (Latest Code Status on File) Date Activated Date Inactivated Comments 05/02/2023 12:46 AM 05/03/2023 12:26 PM Care Teams Hotel Casino Floorperson Relationship Specialty Start Date End Date Jeff Strickland MD [address] [facility] [address] [place] [address] PCP - General FAMILY PRACTICE 02/22/23
--- OUTSIDE RECORDS SUMMARY | 2024-11-18 14:11 | XMS_ITS | Patient Health Record ---
Author Organization [facility] As [facility] Address [address] [place] [address] Care Team Providers Care Investigative Writer Name Role Phone Trenton Hernandez Unavailable [phone] Reason For Referral No Information Medications Medication [...] UNIT)-FOLIC ACID 1 MG TABLET *Reorder from [employer] for eRx and Interaction Alerts* 02/26/2023 Active Azelastine HCl 137 MCG/SPRAY Solution Nasal 02/26/2023 Active Dilt-XR 240 MG Capsule Extended Release 24 Hour Oral 02/26/2023 Active Potassium Chloride ER 10 MEQ Tablet Extended Release Oral 02/26/2023 Active Mounjaro 2.5 MG/0.5ML Solution Pen-injector Subcutaneous *Reorder from [employer] for eRx and Interaction Alerts* 02/26/2023 Active [...] Date Coverage End Date Aet[employer] [address] NARCISO FIGUEROA [phone] [id number] GRACE INTERIANO Self - patient is the insured Medical (General) History Surgical History Surgery Date(Month/Year) Removal of gallbladder (04944) Cataract surgery (47724) 02/17/2013 Sinus surgery 02/17/2021 Cardiac stent 07/18/2021
--- OUTSIDE RECORDS SUMMARY | 2024-11-18 14:11 | XMS_ITS | Encounter Summary ---
Author Organization [facility] Address [facility] [place] [address] Care Team Providers Care College [employer] Department Head Name Role Phone Deandre Bojorquez MD Unavailable [phone] Jeff Strickland MD Primary Care Provider [phone] Encounter Details Date Type Department Care Team (Late st Contact Info) Description 02/04/2024 Lab Requisition [facility] MAIN LAB [address] [place] [phone] Alan Davenport MD [facility]1 [facility] OF ABD TRANSPLANT [place] [address] Social History Tobacco Use Types Packs/Day Years Used Date Smoking Tobacco: Never Smokeless Tobacco: Never Alcohol Use Standard Drinks/Week Comments Not Currently 0 (1 standard drink = 0.6 oz pur e alcohol) socially in past Sex and Gender Information Value Date Recorded Sex Assigned at Male 07/02/2021 2:37 PM CDT Legal Sex Male 10:14 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 PROFESSOR OF FORESTRY Gender Identity Male 07/02/2021 2:37 PM CDT [...] 10:00 AM CDT Appointment H IVR [address] [place] [address] Elroy Holcomb MD [address] [place] [address] 2L DIV [place] [address] 11/24/2024 9:05 AM CDT Hospital Encounter [facility] RITO OP [address] [place] [address] Elroy Holcomb MD [address] [place] [address] 2L DIV OF [place] [address] Surgery General 11/24/2024 9:05 AM CDT - 11/24/2024 11:20 AM CDT Surgery [facility] RITO OP [address] [place] [address] Elroy Holcomb MD [address] [place] [address] 2L DIV OF [place] [address] Bilateral first toe debridement 12/06/2024 10:40 AM CDT Office Visit [facility] - Endocrinology [address] [place] [address], [place] [phone] Marbin Flores MD [address] [facility] [place] DIV OF ABD TRANS[place] [address] Niraj Turner MD 1225 [facility] 2L [place] [address] 2025 1:00 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 PROFESSOR OF FORESTRY Office Visit [facility] Physician Group - Neurology [address] [place] [address], [place] [address] Becky Wilson MD [address] [place] [phone] Scheduled Procedures Name Priority Associated Diagnoses Date/Ti me IRRIGATION/DEBRIDEMENT WOUND/TISSUE Peripheral artery disease 11/24/2024 9:05 AM CDT AMPUTATION TOE Peripheral artery disease 11/24/2024 9:05 AM CDT documented as of this encounter Procedures Procedure Name Priority Date/Time Associated Diagnosis Comments HOLD HLA SPECIMEN Routine 01/27/2024 3:2 3 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 PROFESSOR OF FORESTRY documented in this encounter Results * HOLD HLA SPECIMEN (01/27/2024 3:23 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 PROFESSOR OF FORESTRY) Hold HLA Specimen 02/04/2024 4:31 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 PROFESSOR OF FORESTRY [facility] Comment:The Hold HLA specime n has been received into the lab and will be held for 5 years at 4 degrees. Blood BLOOD SPECIMEN / Unknown 01/27/2024 3:23 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 PROFESSOR OF FORESTRY 02/04/2024 3:23 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 PROFESSOR OF FORESTRY Alan Davenport MD LAB - BLOOD BANK ORDERABLES F inal Result [facility] ([facility]) [address] [place] [address], [facility] documented in this encounter Visit Diagnoses Not on filedocumented in this encounter Additional Health Concerns Infection Onset Date Last Indicated Resolved Time COVID-19 Under Investigation 09/13/2024 09/13/2024 09/13/2024 6:36 AM CDT documented as of this encounter Care Teams College Or University Department Head Relationship Specialty Start Date End Date Jeff Strickland MD [address] [place] [address] PCP - General 03/05/18 [place] [address] [place] [address] Orthopedic Surgery 03/28/17 documented as of this encounter
--- OUTSIDE RECORDS SUMMARY | 2024-11-18 14:11 | XMS_ITS ---
Author Organization [facility] Address [address] [place] [address] Care Team Providers Care Fast Food Shift Supervisor Name Role Phone Jeff Strickland MD Primary Care Provider Chan Nicholas MD Unavailable Alan Mccall MD Unavailable Pepito Haro MD PhD Unavailable [phone] Solange Guido MD Unavailable [phone] Dialysis Access Sites Type Status Location Placement [...] both eyes EGFR Routine 04/13/2024 5:06 AM CERTIFIED ACTIVITIES DIRECTOR HEMOGLOBIN A1C STAT 04/10/2024 11:41 PM CERTIFIED ACTIVITIES DIRECTOR LIPID PANEL STAT 04/10/2024 11:41 PM CERTIFIED ACTIVITIES DIRECTOR from Last 3 Months or Most Recently [...] 300 + = 14 units Active FA-vit Zjxdk-R-pdyk-vitamin D3 (Dialyvite 800-Ultra D) 0.8-2,000 mg-unit tablet [...] total) by mouth 06/04/19 25 Active vitamins A,C,T-idkf-tgejgu (PreserVision AREDS) 4,296 mcg-226 mg-90 mg capsule [...] damage Assessment & Plan (03/09/2024 6:25 PM CERTIFIED ACTIVITIES DIRECTOR): Vision OD trends mild improvement, though still [...] 03/26/2021 Assessment & Plan (03/26/2021 1:17 PM CERTIFIED ACTIVITIES DIRECTOR): Enlarged mild sella turcica on a routine [...] units Assessment & Plan (03/26/2021 1:17 PM CERTIFIED ACTIVITIES DIRECTOR): Chronic, uncontrolled, improving A1c today 7.7 % [...] WNL Assessment & Plan (03/26/2021 1:16 PM CERTIFIED ACTIVITIES DIRECTOR): Pt currently on Levothyroxine 112 mcg oral [...] 11/18/2018 Assessment & Plan (01/21/2019 2:02 PM CERTIFIED ACTIVITIES DIRECTOR): Symptomatic. Will request for esophageal manometry. Continue [...] well Assessment & Plan (03/26/2021 1:16 PM CERTIFIED ACTIVITIES DIRECTOR): On statin therapy Tolerating well Last lipid [...] nephrectomy. 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 [id number] Immunizations Immunization Administration Dates Next Due Hep [...] oz pur e alcohol) rarely [facility] Interwiseities Answer Date Recorded In the past 12 months has [employer], gas, oil, or water [employer] threatened to shut off services in your [...] often do you attend chur ch or synagogue services? Never 03/25/2023 Do you belong to any clubs o r organizations such as mormonism groups, unions, fraternal or athletic groups, or [...] on file Legal Sex Male 2:23 AM CERTIFIED ACTIVITIES DIRECTOR Gender Identity Not on file Sexual [...] CDT Respiratory Rate 16 04/13/2024 8:33 AM CERTIFIED ACTIVITIES DIRECTOR Oxygen Saturation 98% 04/13/2024 8:33 AM CERTIFIED ACTIVITIES DIRECTOR Inhaled Oxygen Concentration - - Weight 122.3 [...] Selwyn Wong M.D. LC: MARC Report ID: [id number] Reading Location: [id number] Procedure Note Dolores Wong MD - 10/12/2024 EXAM DESCRIPTION: MRI BRAIN WO CONTRAST REASON FOR STUDY: other symptoms and signs involving cognitive functionsand awareness Cognitive changes, confusion, worse over that last several weeks, noinjury or trauma but patient states he has had several surgeries recently TECHNIQUE: Multiplanar imaging includes non-contrasted T1, T2, FLAIR, and diffusion with ADC map sequences. Additional sequence(s) sensitive [employer] products. Images stored on PACS. COMPARISON: MRI [...] Selwyn Wong M.D. LC: MARC Report ID: [id number] Reading Location: [id number] us Provider Transcribed Order IMG MRI PROCEDURES [...] Result * (ABNORMAL) eGFR (04/13/2024 5:06 AM CERTIFIED ACTIVITIES DIRECTOR) eGFR 5(L) >=60 mL/min/1. 73 m2 Comment: [...] last reviewed 2020. Blood 04/13/2024 5:06 AM CERTIFIED ACTIVITIES DIRECTOR 04/13/2024 5:31 AM CERTIFIED ACTIVITIES DIRECTOR us Saul Engle MD LAB BLOOD ORDERABLES Final Resul t [facility] Department of Laboratories [place], [place] [id number] * (ABNORMAL) Lipid panel (04/10/2024 11:41 PM CERTIFIED ACTIVITIES DIRECTOR) Cholesterol 145 30 - 199 mg/dL Comment: [...] on 2017. LDL, calculated See Comment <=129 [facility] Comment: Unable to [...] on 2023. Non-HDL Cholesterol 123 mg/dL [facility] Comment: [...] last revised on 2017. Chol/HDL ratio 7 [facility] Blood 04/10/2024 11:4 1 PM CERTIFIED ACTIVITIES DIRECTOR 04/10/2024 11:55 PM CERTIFIED ACTIVITIES DIRECTOR us Nicole Boo MD LAB BLOOD ORDERABLES Final Result [facility] Department [place] [address] from Last 3 Months or Most Recently Relevant to Health Maintenance
--- OUTSIDE RECORDS SUMMARY | 2024-11-18 14:11 | XMS_ITS | Encounter Summary ---
Author Organization [facility] Address [address] [place] [address] Care Team Providers Care University Partnership Rep Name Role Phone Deandre Bojorquez MD Unavailable [phone] Jeff Strickland MD Primary Care Provider [phone] Encounter Details Date Type Department Care Team (Late st Contact Info) Description 09/10/2024 Telephone [facility] - Centralized Scheduling [facility] [place] [address] Niraj Turner MD [facility] [place] [address] Social History Tobacco Use Types Packs/Day Years [...] and heating? Not hard at all 09/14/2024 [facility] - Occupational Stress Questionnaire Answer [...] PM CDT Legal Sex Male 10:14 PM FIELD OPERATOR Gender Identity Male 07/02/2021 2:37 [...] Info) Description 11/23/2024 10:00 AM CDT Appointment [facility] IVR [address] [place] [address] Elroy Holcomb MD [facility]5 [facility] 2L [place] [address] 11/24/2024 9:05 AM CDT Hospital Encounter [facility] RITO OP [address] [place] [address] Elroy Holcomb MD [address] [place] [address] 2L [place] [address] Surgery General 11/24/2024 9:05 AM CDT - 11/24/2024 11:20 AM CDT Surgery [facility] RITO OP [address] [place] [phone] Elroy Holcomb MD [facility]5 [facility] 2L [place] [address] Bilateral first toe debridement 12/06/2024 10:40 AM CDT Office Visit [facility] - Endocrinology [address] [place] [address], [place] [phone] Marbin Flores MD [address] [facility] DIV OF ABD [place] [address] Niraj Turner MD [address] [place] [address] 2L [place] [address] 2025 1:00 PM FIELD OPERATOR Office Visit [facility] - Neurology [address] [place] [phone] Becky Wilson MD [address] [place] [phone] Scheduled Procedures Name Priority Associated Diagnoses Date/Ti [...] documented as of this encounter Care Teams University Partnership Rep Relationship Specialty Start Date End Date Jeff Strickland MD [address] [place] [address] PCP - General 03/05/18 [place] [address] [address] Orthopedic Surgery 03/28/17 documented as of this encounter
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
--- OUTSIDE RECORDS SUMMARY | 2024-11-18 14:11 | XMS_ITS | Encounter Summary ---
Author Organization [facility] Address [address] [place] [address] Care Team Providers Care License Registration Examiner Name Role Phone Deandre Bojorquez MD Unavailable [phone] Jeff Strickland MD Primary Care Provider [phone] Reason for Visit * Reason Onset Date Comments Post-Op 09/03/2024 Encounter Details Date Type Department Care Team (Late st Contact Info) Description 09/03/2024 Telephone [facility] - Cardiology [address] [facility] [address] [place] [address] Hannah Goodman MD [address] [facility] [address] [place] [address] Post-Op Social History Tobacco Use Types Packs/Day [...] and heating? Not hard at all 09/04/2024 [facility] Occupat ional Health - Occupational Stress [...] time in the past 12 m [facility], were you homeless or living in a mcfp (including now)? No 09/04/2024 Sex and Gender Information Value Date Recorded Sex Assigned at Male 07/02/2021 2:37 PM CDT Legal Sex Male 10:14 PM NEWSPAPER WRITER Gender Identity Male 07/02/2021 2:37 PM CDT [...] confused post op Patient Call Back number: [phone] documented in this encounter Plan of Treatment Upcoming Encounters Date Type Department Care Team (Late st Contact Info) Description 11/23/2024 10:00 AM CDT Appointment [facility] IVR [address] [place] [address] Elroy Holcomb MD [address] [place] [address] 2L [place] [address] 11/24/2024 9:05 AM CDT Hospital Encounter [facility] RITO OP [address] [place] [address] Elroy Holcomb MD [address] [place] [address] 2L [place] [address] Surgery General 11/24/2024 9:05 AM CDT - 11/24/2024 11:20 AM CDT Surgery [facility] RITO OP [address] [place] [address] Elroy Holcomb MD [address] [place] [address] 2L [place] [address] Bilateral first toe debridement 12/06/2024 10:40 AM CDT Office Visit [facility] - Endocrinology [address] [place] [address], [place] [phone] Marbin Flores MD [address] [place] [address] DIV [place] [address] Niraj Turner MD [address] [place] [address] 2L [place] [address] 2025 1:00 PM NEWSPAPER WRITER Office Visit [facility] - Neurology [facility]5 [facility], [place] [address] Becky Wilson MD [address] [place] [address] Scheduled Procedures Name Priority Associated Diagnoses Date/Ti [...] documented as of this encounter Care Teams License Registration Examiner Relationship Specialty Start Date End Date Jeff Strickland MD [address] [place] [address] PCP - General 03/05/18 [place] [address] [address] Orthopedic Surgery 03/28/17 documented as of this encounter
--- OUTSIDE RECORDS SUMMARY | 2024-11-18 14:11 | XMS_ITS | Encounter Summary ---
Author Organization [facility] Address [address] [facility] [place] [address] Care Team Providers Care Last Trimmer Name Role Phone Deandre Bojorquez MD Unavailable [phone] Jeff Strickland MD Primary Care Provider [phone] Encounter Details Date Type Department Care Team (Late st Contact Info) Description 11/12/2024 Orders Only [facility] [address] [place] [address] Griffin Rodriguez MD [address] [facility] DIV OF [facility] [address] [place] [phone] Social History Tobacco Use Types Packs/Day Years [...] Recorded Patient Health Questionnaire-2 Score 6 10/05/2024 [facility] Occupat ional Health - [...] PM CDT Legal Sex Male 10:14 PM BLACK LEATHER TRIMMER Gender Identity Male 07/02/2021 2:37 PM CDT [...] Info) Description 11/23/2024 10:00 AM CDT Appointment [facility] [address] [place] [address] Elroy Holcomb MD [address] [place] [address] 2L [place] [address] 11/24/2024 9:05 AM CDT Hospital Encounter [facility] RITO OP [address] [place] [address] Elroy Holcomb MD [address] [place] [address] 2[address] [place] [address] Surgery General 11/24/2024 9:05 AM CDT - 11/24/2024 11:20 AM CDT Surgery [facility] RITO OP [address] [place] [address] Elroy Holcomb MD [address] [place] [address] 2[address] [place] [address] Bilateral first toe debridement 12/06/2024 10:40 AM CDT Office Visit [facility] - Endocrinology [address] [place] [address], [place] [address] Marbin Flores MD [address] [facility] DIV OF ABD [place] [address] Niraj Turner MD [address] [facility] 2L [place] [address] 2025 1:00 PM BLACK LEATHER TRIMMER Office Visit [facility] - Neurology [address] [place] [address], [place] [address] Becky Wilson MD [facility] [place] [phone] Scheduled Procedures Name Priority Associated Diagnoses Date/Ti me IRRIGATION/DEBRIDEMENT WOUND/TISSUE Peripheral artery disease 11/24/2024 9:05 AM CDT AMPUTATION TOE Peripheral artery disease 11/24/2024 9:05 AM CDT documented as of this encounter Visit Diagnoses Not on filedocumented in this encounter Care Teams Last Trimmer Relationship Specialty Start Date End Date Jeff Strickland MD [address] [place] [address] PCP - General 03/05/18 [place] [address] [place] [address] Orthopedic Surgery 03/28/17 documented as of this encounter
--- OUTSIDE RECORDS SUMMARY | 2024-11-18 14:11 | XMS_ITS | Encounter Summary ---
Author Organization [facility] Address [facility] [place] [address] Care Team Providers Care Grass Farmer Name Role Phone Deandre Bojorquez MD Unavailable [phone] Jeff Strickland MD Primary Care Provider [phone] Encounter Details Date Type Department Care Team (Late st Contact Info) Description 10/28/2023 Lab Requisition [facility] MAIN LAB [address] [place] [phone] Alan Davenport MD [facility]1 [facility] [place] [address] Social History Tobacco Use Types Packs/Day Years Used Date Smoking Tobacco: Never Smokeless Tobacco: Never Alcohol Use Standard Drinks/Week Comments Not Currently 0 (1 standard drink = 0.6 oz pur e alcohol) socially in past Sex and Gender Information Value Date Recorded Sex Assigned at Male 07/02/2021 2:37 PM CDT 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 Gender Identity Male 07/02/2021 2:37 PM [...] 10:00 AM CDT Appointment H IVR [address] [place] [address] Elroy Holcomb MD [address] [place] [address] 2L [place] [address] 11/24/2024 9:05 AM CDT Hospital Encounter [facility] RITO OP [address] [place] [address] Elroy Holcomb MD [address] [place] [address] 2L [place] [address] Surgery General 11/24/2024 9:05 AM CDT - 11/24/2024 11:20 AM CDT Surgery [facility] RITO OP [address] [place] [address] Elroy Holcomb MD [address] [place] [address] 2L [place] [address] Bilateral first toe debridement 12/06/2024 10:40 AM CDT Office Visit [facility] - Endocrinology [address] [place] [address], [place] [address] Marbin Flores MD 1201 [facility] DIV OF [place] [address] Niraj Turner MD 1225 [facility] 2L [place] [address] 2025 1:00 PM SCIENCE INSTRUCTOR Office Visit [facility] - Neurology [address] [place] [address], [place] [address] Becky Wilson MD [address] [place] [phone] Scheduled Procedures Name Priority Associated Diagnoses Date/Ti [...] Specimen 10/28/2023 5:00 PM CDT [facility] ([facility]) Comment:The Hold HLA specime n has been received into the lab and will be held for 5 years at 4 degrees. Blood BLOOD SPECIMEN / Unknown 10/22/2023 3:50 PM CDT 10/28/2023 3:50 PM CDT Alan Davenport MD LAB - BLOOD BANK ORDERABLES F inal Result [facility] ([facility]) [address] documented in this encounter Visit Diagnoses Not on filedocumented in this encounter Additional Health Concerns Infection Onset Date Last Indicated Resolved Time COVID-19 Under Investigation 09/13/2024 09/13/2024 09/13/2024 6:36 AM CDT documented as of this encounter Care Teams Grass Farmer Relationship Specialty Start Date End Date Jeff Strickland MD [address] [place] [address] PCP - General 03/05/18 [place] [address] [place] [address] Orthopedic Surgery 03/28/17 documented as of this encounter
--- OUTSIDE RECORDS SUMMARY | 2024-11-18 14:11 | XMS_ITS | Encounter Summary ---
Author Organization [facility] Healthcare Address [address] [place] [address] Care Team Providers Care Signal Maintainer Helper Name Role Phone Jeff Strickland MD Primary Care Provider Chan Nicholas MD Unavailable [phone] Alan Mccall MD Unavailable [phone] Pepito Haro MD PhD Unavailable Solange Guido MD Unavailable [phone] Encounter Details Date Type Department Care Team (Late st Contact Info) Description 07/28/2024 Orders Only [facility] Health Information Management [address] [place] [address] Scanning, Provider Social History Tobacco Use Types Packs/Day Years Used Date Smoking Tobacco: Never Smokeless Tobacco: Never Alcohol Use Standard Drinks/Week Comments Yes 0 (1 standard drink = 0.6 oz pur e alcohol) rarely [facility] Utilities Answer Date Recorded In the past 12 months has [employer], gas, oil, or water company threatened [...] on file Legal Sex Male 2:[address] MAGISTRATE Gender Identity Not on file Sexual Orientation [...] filedocumented in this encounter Care Teams Signal Maintainer Helper Relationship Specialty Start Date End Date Jeff Strickland MD [facility] [address] [place] [id number] PCP - General Family Medicine 04/02/18 Chan Nicholas MD [facility] [address] [address] Consulting Physician Gastroenterology 11/24/18 Alan Mccall MD [facility] [address] [address] Referring Physician Nephrology 11/24/18 Pepito Haro MD PhD [address] [place] [address] Consulting Physician Neurosurgery 12/03/22 Solange Guido MD 10[address] [facility] 1120 [place] [address] Referring Physician Cardiovascular Disease 07/23/23 documented as of this encounter
--- OUTSIDE RECORDS SUMMARY | 2024-11-18 14:11 | XMS_ITS | Encounter Summary ---
Author Organization [facility] Address [facility]3 [place] [address] Care Team Providers Care Baker Name Role Phone Deandre Bojorquez MD Unavailable Jeff Strickland MD Primary Care Provider [phone] Encounter Details Date Type Department Care Team (Late st Contact Info) Description 11/21/2023 Lab Requisition [facility] MAIN LAB [address] [place] [address] Alan Davenport MD [facility] OF ABD TRANSPL[place] [address] Social History Tobacco Use Types Packs/Day Years Used Date Smoking Tobacco: Never Smokeless Tobacco: Never Alcohol Use Standard Drinks/Week Comments Not Currently 0 (1 standard drink = 0.6 oz pur e alcohol) socially in past Sex and Gender Information Value Date Recorded Sex Assigned at Male 07/02/2021 2:37 PM CDT 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 Male 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 Gender Identity Male 07/02/2021 2:37 PM [...] 10:00 AM CDT Appointment H IVR [address] [place] [address] Elroy Holcomb MD [address] [place] [address] 2L DIV OF [place]ASC[place] [address] 11/24/2024 9:05 AM CDT Hospital Encounter [facility] RITO OP [address] [place] [address] Elroy Holcomb MD [address] [place] [address] 2L DIV OF [place]ASC[place] [address] Surgery General 11/24/2024 9:05 AM CDT - 11/24/2024 11:20 AM CDT Surgery [facility] RITO OP [address] [place] [address] Elroy Holcomb MD [address] [place] [address] 2L DIV OF [place] [address] Bilateral first toe debridement 12/06/2024 10:40 AM CDT Office Visit [facility] Endocrinology [address] [place] [address], [place] [address] Marbin Flores MD 1201 [facility] DIV OF ABD TRANSPLANT [place] [address] Niraj Turner MD 1225 [facility] 2L [place] [address] 2025 1:00 PM LIFE ADVISOR Office Visit [facility] Physician Group - Neurology [address] [place] [address], [place] [address] Becky Wilson MD [address] [place] [phone] Scheduled Procedures Name Priority Associated Diagnoses Date/Ti [...] HLA Specimen 11/21/2023 1:31 PM CDT [facility] ([facility]) Comment:The Hold HLA specime n has been received into the lab and will be held for 5 years at 4 degrees. Blood BLOOD SPECIMEN / Unknown 11/18/2023 12:16 PM CDT 11/21/2023 12:17 PM CDT Alan Davenport MD LAB - BLOOD BANK ORDERABLES F inal Result [facility] ([facility]) [address] documented in this encounter Visit Diagnoses Not on filedocumented in this encounter Additional Health Concerns Infection Onset Date Last Indicated Resolved Time COVID-19 Under Investigation 09/13/2024 09/13/2024 09/13/2024 6:36 AM CDT documented as of this encounter Care Teams Baker Relationship Specialty Start Date End Date Jeff Strickland MD [address] [place] [address] PCP - General 03/05/18 [place] [address] [place] [address] Orthopedic Surgery 03/28/17 documented as of this encounter
--- OUTSIDE RECORDS SUMMARY | 2024-11-18 14:11 | XMS_ITS | Encounter Summary ---
Author Organization [facility] Address [facility]3 [place] [address] Care Team Providers Care Sales Ambassador Name Role Phone Deandre Bojorquez MD Unavailable [phone] Jeff Strickland MD Primary Care Provider [phone] Encounter Details Date Type Department Care Team (Late st Contact Info) Description 03/30/2024 Lab Requisition [facility] MAIN LAB [address] [place] [phone] Alan Davenport MD [facility]1 [facility] [place] [address] Social History Tobacco Use Types Packs/Day Years Used Date Smoking Tobacco: Never Smokeless Tobacco: Never Alcohol Use Standard Drinks/Week Comments Not Currently 0 (1 standard drink = 0.6 oz pur e alcohol) socially in past Sex and Gender Information Value Date Recorded Sex Assigned at Male 07/02/2021 2:37 PM CDT 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 Sex Male 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 Gender Identity Male 07/02/2021 2:37 PM CDT [...] 10:00 AM CDT Appointment H IVR [address] [place] [address] Elroy Holcomb MD [address] [place] [address] 2L [place] [address] 11/24/2024 9:05 AM CDT Hospital Encounter [facility] RITO OP [address] [place] [address] Elroy Holcomb MD [address] [place] [address] 2L [place] [address] Surgery General 11/24/2024 9:05 AM CDT - 11/24/2024 11:20 AM CDT Surgery [facility] RITO OP [address] [place] [address] Elroy Holcomb MD [address] [place] [address] 2L [place] [address] Bilateral first toe debridement 12/06/2024 10:40 AM CDT Office Visit [facility] - Endocrinology [address] [place] [address], [place] [address] Marbin Flores MD 1201 [facility] DIV [place] [address] Niraj Turner MD 1225 [facility] 2L [place] [address] 2025 1:00 PM COLLEGE OR UNIVERSITY REGISTRAR Office Visit [facility] Physician Group - Neurology [address] [place] [address], [place] [address] Becky Wilson MD [address] [place] [phone] Scheduled Procedures Name Priority Associated Diagnoses Date/Ti me IRRIGATION/DEBRIDEMENT WOUND/TISSUE Peripheral artery disease 11/24/2024 9:05 AM CDT AMPUTATION TOE Peripheral artery disease 11/24/2024 9:05 AM CDT documented as of this encounter Procedures Procedure Name Priority Date/Time Associated Diagnosis Comments HOLD HLA SPECIMEN Routine 03/25/2024 2:5 1 PM COLLEGE OR UNIVERSITY REGISTRAR documented in this encounter Results * HOLD HLA SPECIMEN (03/25/2024 2:51 PM COLLEGE OR UNIVERSITY REGISTRAR) Hold HLA Specimen 03/30/2024 4:01 PM COLLEGE OR UNIVERSITY REGISTRAR [facility] Comment:The Hold HLA specime n has been received into the lab and will be held for 5 years at 4 degrees. Blood BLOOD SPECIMEN / Unknown 03/25/2024 2:51 PM COLLEGE OR UNIVERSITY REGISTRAR 03/30/2024 2:51 PM COLLEGE OR UNIVERSITY REGISTRAR Alan Davenport MD LAB - BLOOD BANK ORDERABLES F inal Result [facility] ([facility]) [address] [place] [address], [facility] documented in this encounter Visit Diagnoses Not on filedocumented in this encounter Additional Health Concerns Infection Onset Date Last Indicated Resolved Time COVID-19 Under Investigation 09/13/2024 09/13/2024 09/13/2024 6:36 AM CDT documented as of this encounter Care Teams Sales Ambassador Relationship Specialty Start Date End Date Jeff Strickland MD [address] [place] [address] PCP - General 03/05/18 [place] [address] [place] [address] Orthopedic Surgery 03/28/17 documented as of this encounter
--- OUTSIDE RECORDS SUMMARY | 2024-11-18 14:11 | XMS_ITS | Encounter Summary ---
Author Organization [facility] Address [facility] [place] [address] Care Team Providers Care Dry Starch Operator Name Role Phone Deandre Bojorquez MD Unavailable [phone] Jeff Strickland MD Primary Care Provider [phone] Encounter Details Date Type Department Care Team (Late st Contact Info) Description 09/30/2023 Lab Requisition [facility] MAIN LAB [address] [place] [address] Alan Davenport MD [facility][note 2]1 [facility] [place] [address] Social History Tobacco Use Types Packs/Day Years Used Date Smoking Tobacco: Never Smokeless Tobacco: Never Alcohol Use Standard Drinks/Week Comments Not Currently 0 (1 standard drink = 0.6 oz pur e alcohol) socially in past Sex and Gender Information Value Date Recorded Sex Assigned at Male 07/02/2021 2:37 PM CDT 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 Gender Identity Male 07/02/2021 2:37 PM CDT [...] 10:00 AM CDT Appointment H IVR [address] [place] [address] Elroy Holcomb MD [address] [place] [address] 2L [place] [address] 11/24/2024 9:05 AM CDT Hospital Encounter [facility] RITO OP [address] [place] [address] Elroy Holcomb MD [address] [place] [address] 2L [place] [address] Surgery General 11/24/2024 9:05 AM CDT - 11/24/2024 11:20 AM CDT Surgery [facility] RITO OP [address] [place] [address] Elroy Holcomb MD [address] [place] [address] 2L [place] [address] Bilateral first toe debridement 12/06/2024 10:40 AM CDT Office Visit [facility] - Endocrinology [address] [place] [address], [place] [address] Marbin Flores MD 1201 [facility] DIV OF [place] [address] Niraj Turner MD 1225 [facility] 2L [place] [address] 2025 1:00 PM ASSEMBLER SANDAL PARTS Office Visit [facility] - Neurology [address] [place] [address], [place] [address] Becky Wilson MD [address] [place] [phone] Scheduled Procedures Name Priority Associated Diagnoses Date/Ti [...] Hold HLA Specimen 09/30/2023 4:32 PM CDT [facility] ([facility]) Comment:The Hold HLA specime n has been received into the lab and will be held for 5 years at 4 degrees. Blood BLOOD SPECIMEN / Unknown 09/24/2023 3:27 PM CDT 09/30/2023 3:27 PM CDT Alan Davenport MD LAB - BLOOD BANK ORDERABLES F inal Result [facility] ([place]) [address] documented in this encounter Visit Diagnoses Not on filedocumented in this encounter Additional Health Concerns Infection Onset Date Last Indicated Resolved Time COVID-19 Under Investigation 09/13/2024 09/13/2024 09/13/2024 6:36 AM CDT documented as of this encounter Care Teams Dry Starch Operator Relationship Specialty Start Date End Date Jeff Strickland MD [address] [place] [address] PCP - General 03/05/18 [place] [address] [place] [address] Orthopedic Surgery 03/28/17 documented as of this encounter
--- OUTSIDE RECORDS SUMMARY | 2024-11-18 14:11 | XMS_ITS | Encounter Summary ---
Author Organization [facility] Healthcare Address [address] [place] [address] Care Team Providers Care Delivery Coordinator Name Role Phone Jeff Strickland MD Primary Care Provider Chan Nicholas MD Unavailable [phone] Alan Mccall MD Unavailable [phone] Pepito Haro MD PhD Unavailable Solange Guido MD Unavailable [phone] Encounter Details Date Type Department Care Team (Late st Contact Info) Description 07/26/2024 Orders Only [facility] Health Information Management [address] [place] [address] Scanning, Provider Social History Tobacco Use Types Packs/Day Years Used Date Smoking Tobacco: Never Smokeless Tobacco: Never Alcohol Use Standard Drinks/Week Comments Yes 0 (1 standard drink = 0.6 oz pur e alcohol) rarely [facility] Utilities Answer Date Recorded In the past 12 months has [employer] electric, gas, oil, or water company threatened [...] on file Legal Sex Male 2:23 AM 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 BOUNTY 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 Gender Identity Not on file Sexual Orientation [...] on filedocumented in this encounter Care Teams Delivery Coordinator Relationship Specialty Start Date End Date Jeff Strickland MD [address] [place] [address] [address] PCP - General Family Medicine 04/02/18 Chan Nicholas MD [facility] [address] [address] Consulting Physician Gastroenterology 11/24/18 Alan Mccall MD [address] [place] [address] [address] Referring Physician Nephrology 11/24/18 Pepito Haro MD PhD [facility]EE [employer] [address] [place] [id number] Consulting Physician Neurosurgery 12/03/22 Solange Guido MD 1034 [facility] [address] [place] [address] Referring Physician Cardiovascular Disease 07/23/23 documented as of this encounter
--- OUTSIDE RECORDS SUMMARY | 2024-11-18 14:11 | XMS_ITS | Encounter Summary ---
Author Organization [facility] Address [address] [place] [address] Care Team Providers Care Banbury Mixer Operator Name Role Phone Deandre Bojorquez MD Unavailable [phone] Jeff Strickland MD Primary Care Provider [phone] Encounter Details Date Type Department Care Team (Late st Contact Info) Description 02/07/2023 Lab Requisition [facility] MAIN LAB [address] [place] [phone] Alan Davenport MD [facility]1 [facility] [place] [address] Social History Tobacco Use Types Packs/Day Years Used Date Smoking Tobacco: Never Smokeless Tobacco: Never Alcohol Use Standard Drinks/Week Comments Not Currently 0 (1 standard drink = 0.6 oz pur e alcohol) socially in past Sex and Gender Information Value Date Recorded Sex Assigned at Male 07/02/2021 2:37 PM CDT Legal Sex Male 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 Gender Identity Male 07/02/2021 2:37 PM CDT [...] 10:00 AM CDT Appointment H IVR [address] [place] [address] Elroy Holcomb MD [address] [place] [address] 2L [place] [address] 11/24/2024 9:05 AM CDT Hospital Encounter [facility] RITO OP [address] [place] [address] Elroy Holcomb MD [address] [place] [address] 2L [place] [address] Surgery General 11/24/2024 9:05 AM CDT - 11/24/2024 11:20 AM CDT Surgery [facility] RITO OP [address] [place] [address] Elroy Holcomb MD [address] [place] [address] 2L [place] [address] Bilateral first toe debridement 12/06/2024 10:40 AM CDT Office Visit [facility] - Endocrinology [address] [place] [address], [place] [address] Marbin Flores MD 1201 [facility] DIV [place] [address] Niraj Turner MD 1225 [facility] 2L [place] [address] 2025 1:00 PM WEB RETAILER Office Visit [facility] Physician Group - Neurology [address] [place] [address], [place] [address] Becky Wilson MD [address] [place] [phone] Scheduled Procedures Name Priority Associated Diagnoses Date/Ti me IRRIGATION/DEBRIDEMENT WOUND/TISSUE Peripheral artery disease 11/24/2024 9:05 AM CDT AMPUTATION TOE Peripheral artery disease 11/24/2024 9:05 AM CDT documented as of this encounter Procedures Procedure Name Priority Date/Time Associated Diagnosis Comments HOLD HLA SPECIMEN Routine 2023 7:5 8 AM WEB RETAILER documented in this encounter Results * HOLD HLA SPECIMEN (2023 7:58 AM WEB RETAILER) Hold HLA Specimen 02/07/2023 9:01 AM WEB RETAILER [facility] ([facility]) Comment:The Hold HLA specime n has been received into the lab and will be held for 5 years at 4 degrees. Blood BLOOD SPECIMEN / Unknown 2023 7:58 AM WEB RETAILER 02/07/2023 7:59 AM WEB RETAILER Alan Davenport MD LAB - BLOOD BANK ORDERABLES F inal Result [facility]OR[facility] ([facility]) [address] [place] [address], [facility] documented in this encounter Visit Diagnoses Not on filedocumented in this encounter Additional Health Concerns Infection Onset Date Last Indicated Resolved Time COVID-19 Under Investigation 09/13/2024 09/13/2024 09/13/2024 6:36 AM CDT documented as of this encounter Care Teams Banbury Mixer Operator Relationship Specialty Start Date End Date Jeff Strickland MD [address] [place] [address] PCP - General 03/05/18 [place] [address] [place] [address] Orthopedic Surgery 03/28/17 documented as of this encounter
--- OUTSIDE RECORDS SUMMARY | 2024-11-18 14:11 | XMS_ITS | Clinical Summary ---
Author Organization [facility] Address [address] [place] [address] Phone Care Team Providers Care Head Of Advertising Name Role Phone Jeff Strickland MD Primary Care Provider [phone] Allergies No known active allergies Medications pantoprazole [...] tablet Take 112 mcg by mouth daily dry cell sealer. Active aspirin (ANGELLA) 325 mg tablet Take 325 mg by mouth daily. Active Vit C-Vit E-Fcdcun-VuVf-L utein (PRESERVISION) 226 mg-200 unit -5 mg-0.8 [...] Comments Blood Pressure 167/77 02/04/2019 9:16 AM GRADER PATROL Pulse 64 02/04/2019 9:16 AM GRADER PATROL Temperature 36.5 C (97.7 F) 02/04/2019 9:16 AM GRADER PATROL Respiratory Rate 16 02/04/2019 9:16 AM GRADER PATROL Oxygen Saturation 97% 02/04/2019 9:16 AM GRADER PATROL Inhaled Oxygen Concentration - - Weight 113.4 kg (250 lb) 02/04/2019 9:16 AM GRADER PATROL Height 175.3 cm (5' 9) 02/04/2019 9:16 AM GRADER PATROL Body Mass Index 36.92 02/04/2019 9:16 AM GRADER PATROL Plan of Treatment Health Maintenance Due Date [...] ACCESS/TRUE BLUE PPO [employer] MEDICARE SUPPLEMENT PPO [facility] BLUE ACCESS/TRUE BLUE PPO Care Teams Head Of Advertising Relationship Specialty Start Date End Date Jeff Strickland MD [address] [facility] [address] [place] [address] PCP - General Family Practice 01/01/19
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
--- OUTSIDE RECORDS SUMMARY | 2024-11-18 14:46 | XMS_ITS | Encounter Summary ---
Author Organization [facility] Address [address] [place] [address] Care Team Providers Care Journalism Teacher Name Role Phone Deandre Bojorquez MD Unavailable [phone] Jeff Strickland MD Primary Care Provider Encounter Details Date Type Department Care Team (Late st Contact Info) Description 02/07/2023 Lab Requisition [facility] [address] [place] [phone] Alan Davenport MD [facility] [place] [address] Social History Tobacco Use Types Packs/Day Years Used Date Smoking Tobacco: Never Smokeless Tobacco: Never Alcohol Use Standard Drinks/Week Comments Not Currently 0 (1 standard drink = 0.6 oz pur e alcohol) socially in past Sex and Gender Information Value Date Recorded Sex Assigned at Male 07/02/2021 2:37 PM CDT Legal Sex Male 10:14 PM PROCESS AREA SUPERVISOR Gender Identity Male 07/02/2021 2:37 PM [...] 10:00 AM CDT Appointment H IVR [address] [place] [address] Elroy Holcomb MD [address] [place] [address] 2L [place] [address] 11/24/2024 9:05 AM CDT Hospital Encounter [facility] [address] [place] [address] Elroy Holcomb MD [address] [place] [address] 2[address] [place] [address] Surgery General 11/24/2024 9:05 AM CDT - 11/24/2024 11:20 AM CDT Surgery [facility] [address] [place] [address] Elroy Holcomb MD [address] [place] [address] 2L [place] [address] Bilateral first toe debridement 12/06/2024 10:40 AM CDT Office Visit [facility] - Endocrinology [address] [place] [address], [place] [phone] Marbin Flores MD [address] [facility] DIV OF [place] [address] Niraj Turner MD 1225 [facility] 2L [place] [address] 2025 1:00 PM PROCESS AREA SUPERVISOR Office Visit [facility] - Neurology [address] [place] [address], [place] [address] Becky Wilson MD [address] [place] [phone] Scheduled Procedures Name Priority Associated Diagnoses Date/Ti me IRRIGATION/DEBRIDEMENT WOUND/TISSUE Peripheral artery disease 11/24/2024 9:05 AM CDT AMPUTATION TOE Peripheral artery disease 11/24/2024 9:05 AM CDT documented as of this encounter Procedures Procedure Name Priority Date/Time Associated Diagnosis Comments HOLD HLA SPECIMEN Routine 2023 7:5 8 AM PROCESS AREA SUPERVISOR documented in this encounter Results * HOLD HLA SPECIMEN (2023 7:58 AM PROCESS AREA SUPERVISOR) Hold HLA Specimen 02/07/2023 9:01 AM PROCESS AREA SUPERVISOR [facility] Comment:The Hold HLA specime n has been received into the lab and will be held for 5 years at 4 degrees. Blood BLOOD SPECIMEN / Unknown 2023 7:58 AM PROCESS AREA SUPERVISOR 02/07/2023 7:59 AM PROCESS AREA SUPERVISOR Alan Davenport MD LAB - BLOOD BANK ORDERABLES F inal Result [facility] ([facility]) [address] [place] [address], [facility] documented in this encounter Visit Diagnoses Not on filedocumented in this encounter Additional Health Concerns Infection Onset Date Last Indicated Resolved Time COVID-19 Under Investigation 09/13/2024 09/13/2024 09/13/2024 6:36 AM CDT documented as of this encounter Care Teams Journalism Teacher Relationship Specialty Start Date End Date Jeff Strickland MD [address] [place] [address] PCP - General 03/05/18 [place] [address] [place] [address] Orthopedic Surgery 03/28/17 documented as of this encounter
--- OUTSIDE RECORDS SUMMARY | 2024-11-18 14:46 | XMS_ITS | Encounter Summary ---
Author Organization [facility] Address [facility] [place] [address] Care Team Providers Care Staff Toxicologist Name Role Phone Deandre Bojorquez MD Unavailable [phone] Jeff Strickland MD Primary Care Provider [phone] Encounter Details Date Type Department Care Team (Late st Contact Info) Description 11/21/2023 Lab Requisition [facility] [address] [place] [phone] Alan Davenport MD [facility] OF [place] [address] Social History Tobacco Use Types Packs/Day Years Used Date Smoking Tobacco: Never Smokeless Tobacco: Never Alcohol Use Standard Drinks/Week Comments Not Currently 0 (1 standard drink = 0.6 oz pur e alcohol) socially in past Sex and Gender Information Value Date Recorded Sex Assigned at Male 07/02/2021 2:37 PM CDT Legal Sex Male 10:14 PM SHANK CEMENTER HAND Gender Identity Male 07/02/2021 2:37 PM [...] 10:00 AM CDT Appointment H IVR [address] [place] [address] Elroy Holcomb MD [address] [place] [address] 2L [place] [address] 11/24/2024 9:05 AM CDT Hospital Encounter [facility] [address] [place] [address] Elroy Holcomb MD [address] [place] [address] 2L [place] [address] Surgery General 11/24/2024 9:05 AM CDT - 11/24/2024 11:20 AM CDT Surgery [facility] [address] [place] [address] Elroy Holcomb MD [address] [place] [address] 2L [place] [address] Bilateral first toe debridement 12/06/2024 10:40 AM CDT Office Visit [facility] Endocrinology [address] [place] [address], [place] [address] Marbin Flores MD [address] [facility] DIV OF [place] [address] Niraj Turner MD 12[address] [facility] 2L Div [place] [address] 2025 1:00 PM SHANK CEMENTER HAND Office Visit [facility] - Neurology [address] [place] [address], [place] [address] Becky Wilson MD [address] [place] [phone] Scheduled Procedures Name Priority Associated Diagnoses Date/Ti [...] Hold HLA Specimen 11/21/2023 1:31 PM CDT [facility] Comment:The Hold HLA specime n has been received into the lab and will be held for 5 years at 4 degrees. Blood BLOOD SPECIMEN / Unknown 11/18/2023 12:16 PM CDT 11/21/2023 12:17 PM CDT Alan Davenport MD LAB - BLOOD BANK ORDERABLES F inal Result [facility] ([facility]) [address] documented in this encounter Visit Diagnoses Not on filedocumented in this encounter Additional Health Concerns Infection Onset Date Last Indicated Resolved Time COVID-19 Under Investigation 09/13/2024 09/13/2024 09/13/2024 6:36 AM CDT documented as of this encounter Care Teams Staff Toxicologist Relationship Specialty Start Date End Date Jeff Strickland MD [address] [place] [address] PCP - General 03/05/18 [place] [address] [place] [address] Orthopedic Surgery 03/28/17 documented as of this encounter
--- OUTSIDE RECORDS SUMMARY | 2024-11-18 14:46 | XMS_ITS | Encounter Summary ---
Author Organization [facility] Address [address] [place] [address] Care Team Providers Care Dry Cleaner Apprentice Name Role Phone Jeff Strickland MD Primary Care Provider Chan Nicholas MD Unavailable Alan Mccall MD Unavailable [phone] Pepito Haro MD PhD Unavailable Solange Guido MD Unavailable [phone] Encounter Details Date Type Department Care Team (Late st Contact Info) Description 07/28/2024 Orders Only [facility] Health Information Management [address] [place] [address] Scanning, Provider Social History Tobacco Use Types Packs/Day Years Used Date Smoking Tobacco: Never Smokeless Tobacco: Never Alcohol Use Standard Drinks/Week Comments Yes 0 (1 standard drink = 0.6 oz pur e alcohol) rarely [facility] Utilities Answer Date Recorded In the past 12 months has [employer] electric, gas, oil, or water company threatened [...] often do you attend chur ch or sikh services? Never 03/25/2023 Do you belong to any clubs o r organizations such as zoroastrian groups, unions, fraternal or athletic groups, or [...] on file Legal Sex Male 2:23 AM BOIL OFF WORKER Gender Identity Not on file Sexual [...] filedocumented in this encounter Care Teams Dry Cleaner Apprentice Relationship Specialty Start Date End Date Jeff Strickland MD [facility] [address] [place] [id number] PCP - General Family Medicine 04/02/18 Chan Nicholas MD [facility] [address] [address] Consulting Physician Gastroenterology 11/24/18 Alan Mccall MD [facility] [address] [address] Referring Physician Nephrology 11/24/18 Pepito Haro MD PhD [address] [place] [address] Consulting Physician Neurosurgery 12/03/22 Solange Guido MD [address] [facility] [address] [place] [address] Referring Physician Cardiovascular Disease 07/23/23 documented as of this encounter
--- OUTSIDE RECORDS SUMMARY | 2024-11-18 14:46 | XMS_ITS | Encounter Summary ---
Author Organization [facility] Address [facility]3 [place] [address] Care Team Providers Care Diabetes Territory Manager Name Role Phone Deandre Bojorquez MD Unavailable Jeff Strickland MD Primary Care Provider [phone] Encounter Details Date Type Department Care Team (Late st Contact Info) Description 10/28/2023 Lab Requisition [facility] [address] [place] [phone] Alan Davenport MD [facility]1 [facility] [place] [address] Social History Tobacco Use Types Packs/Day Years Used Date Smoking Tobacco: Never Smokeless Tobacco: Never Alcohol Use Standard Drinks/Week Comments Not Currently 0 (1 standard drink = 0.6 oz pur e alcohol) socially in past Sex and Gender Information Value Date Recorded Sex Assigned at Male 07/02/2021 2:37 PM CDT Legal Sex Male 10:14 PM FOREIGN EXCHANGE POSITION CLERK Gender Identity Male 07/02/2021 2:37 PM [...] 10:00 AM CDT Appointment H IVR [address] [place] [address] Elroy Holcomb MD [address] [place] [address] 2[address] [place] [address] 11/24/2024 9:05 AM CDT Hospital Encounter [facility] [address] [place] [address] Elroy Holcomb MD [address] [place] [address] [address] [place] [address] Surgery General 11/24/2024 9:05 AM CDT - 11/24/2024 11:20 AM CDT Surgery [facility] [address] [place] [address] Elroy Holcomb MD [address] [place] [address] [address] [place] [address] Bilateral first toe debridement 12/06/2024 10:40 AM CDT Office Visit [facility] - Endocrinology [address] [place] [address], [place] [phone] Marbin Flores MD [address] [facility] DIV [place] [address] Niraj Turner MD [address] [facility] 2L [place] [address] 2025 1:00 PM FOREIGN EXCHANGE POSITION CLERK Office Visit [facility] - Neurology [address] [place] [address], [place] [address] Becky Wilson MD [address] [place] [place] [phone] Scheduled Procedures Name Priority Associated Diagnoses Date/Ti [...] Hold HLA Specimen 10/28/2023 5:00 PM CDT [facility] Comment:The Hold HLA specime n has been received into the lab and will be held for 5 years at 4 degrees. Blood BLOOD SPECIMEN / Unknown 10/22/2023 3:50 PM CDT 10/28/2023 3:50 PM CDT Alan Davenport MD LAB - BLOOD BANK ORDERABLES F inal Result [facility] [address] documented in this encounter Visit Diagnoses Not on filedocumented in this encounter Additional Health Concerns Infection Onset Date Last Indicated Resolved Time COVID-19 Under Investigation 09/13/2024 09/13/2024 09/13/2024 6:36 AM CDT documented as of this encounter Care Teams Diabetes Territory Manager Relationship Specialty Start Date End Date Jeff Strickland MD [address] [place] [address] PCP - General 03/05/18 [place] [address] [place] [address] Orthopedic Surgery 03/28/17 documented as of this encounter
--- OUTSIDE RECORDS SUMMARY | 2024-11-18 14:46 | XMS_ITS | Encounter Summary ---
Author Organization [facility] Address [address] [place] [address] Care Team Providers Care Box Blank Machine Feeder Name Role Phone Deandre Bojorquez MD Unavailable [phone] Jeff Strickland MD Primary Care Provider [phone] Encounter Details Date Type Department Care Team (Late st Contact Info) Description 03/12/2024 Lab Requisition [facility] MAIN LAB [address] [place] [phone] Alan Davenport MD [facility]1 [facility] OF [place] [address] Social History Tobacco Use Types Packs/Day Years Used Date Smoking Tobacco: Never Smokeless Tobacco: Never Alcohol Use Standard Drinks/Week Comments Not Currently 0 (1 standard drink = 0.6 oz pur e alcohol) socially in past Sex and Gender Information Value Date Recorded Sex Assigned at Male 07/02/2021 2:37 PM CDT Legal Sex Male 10:14 PM DATA ABSTRACTOR Gender Identity Male 07/02/2021 2:37 PM CDT [...] 10:00 AM CDT Appointment H IVR [address] [place] [address] Elroy Holcomb MD [address] [place] [address] 2L [place] [address] 11/24/2024 9:05 AM CDT Hospital Encounter [facility] RITO OP [address] [place] [address] Elroy Holcomb MD [address] [place] [address] 2L [place] [address] Surgery General 11/24/2024 9:05 AM CDT - 11/24/2024 11:20 AM CDT Surgery [facility] RITO OP [address] [place] [address] Elroy Holcomb MD [address] [place] [address] 2L [place] [address] Bilateral first toe debridement 12/06/2024 10:40 AM CDT Office Visit [facility] - Endocrinology [address] [place] [address], [place] [phone] Marbin Flores MD 1201 [facility] DIV OF [place] [address] Niraj Turner MD 12[address] [facility] 2L [place] [address] 2025 1:00 PM DATA ABSTRACTOR Office Visit [facility]ician Group - Neurology [address] [place] [address], [place] [address] Becky Wilson MD [address] [place] [phone] Scheduled Procedures Name Priority Associated Diagnoses Date/Ti me IRRIGATION/DEBRIDEMENT WOUND/TISSUE Peripheral artery disease 11/24/2024 9:05 AM CDT AMPUTATION TOE Peripheral artery disease 11/24/2024 9:05 AM CDT documented as of this encounter Procedures Procedure Name Priority Date/Time Associated Diagnosis Comments HOLD HLA SPECIMEN Routine 03/05/2024 1:4 0 PM DATA ABSTRACTOR documented in this encounter Results * HOLD HLA SPECIMEN (03/05/2024 1:40 PM DATA ABSTRACTOR) Hold HLA Specimen 03/12/2024 3:00 PM DATA ABSTRACTOR [facility] Comment:The Hold HLA specime n has been received into the lab and will be held for 5 years at 4 degrees. Blood BLOOD SPECIMEN / Unknown 03/05/2024 1:40 PM DATA ABSTRACTOR 03/12/2024 1:40 PM DATA ABSTRACTOR Alan Davenport MD LAB - BLOOD BANK ORDERABLES F inal Result [facility] ([facility]) [address] [place] [address], [facility] documented in this encounter Visit Diagnoses Not on filedocumented in this encounter Additional Health Concerns Infection Onset Date Last Indicated Resolved Time COVID-19 Under Investigation 09/13/2024 09/13/2024 09/13/2024 6:36 AM CDT documented as of this encounter Care Teams Box Blank Machine Feeder Relationship Specialty Start Date End Date Jeff Strickland MD [address] [place] [address] PCP - General 03/05/18 [place] [address] [place] [address] Orthopedic Surgery 03/28/17 documented as of this encounter
--- OUTSIDE RECORDS SUMMARY | 2024-11-18 14:46 | XMS_ITS | Encounter Summary ---
Author Organization [facility] Address [address] [place] [address] Care Team Providers Care Shank Paperer Name Role Phone Deandre Bojorquez MD Unavailable [phone] Jeff Strickland MD Primary Care Provider [phone] Encounter Details Date Type Department Care Team (Late st Contact Info) Description 09/10/2024 Telephone [facility] - Centralized Scheduling [facility] [place] [address] Niraj Turner MD [facility] [place] [address] Social History Tobacco Use Types Packs/Day Years [...] heating? Not hard at all 09/14/2024 [facility] [place] [facility] - Occupational Stress Questionnaire Answer Date [...] in a long term (including now)? No 09/14/2024 Sex and Gender Information Value Date Recorded Sex Assigned at Male 07/02/2021 2:37 PM CDT Legal Sex Male 10:14 PM INSPECTOR SUBASSEMBLY Gender Identity Male 07/02/2021 2:37 PM CDT [...] Info) Description 11/23/2024 10:00 AM CDT Appointment [facility] IVR [address] [place] [address] Elroy Holcomb MD [facility]5 [facility] 2L [place] [address] 11/24/2024 9:05 AM CDT Hospital Encounter [facility] RITO OP [address] [place] [address] Elroy Holcomb MD [address] [place] [address] 2L [place] [address] Surgery General 11/24/2024 9:05 AM CDT - 11/24/2024 11:20 AM CDT Surgery [facility] RITO OP [address] [place] [phone] Elroy Holcomb MD [facility] 2L [place] [address] Bilateral first toe debridement 12/06/2024 10:40 AM CDT Office Visit [facility] - Endocrinology [address] [place] [address], [place] [address] Marbin Flores MD 1201 [facility] DIV OF ABD [place] [address] Niraj Turner MD [address] [place] [address] 2L [place] [address] 2025 1:00 PM INSPECTOR SUBASSEMBLY Office Visit [facility] Group - Neurology [address] [place] [phone] Becky Wilson MD [address] [place] [phone] Scheduled Procedures Name Priority Associated Diagnoses Date/Ti [...] documented as of this encounter Care Teams Shank Paperer Relationship Specialty Start Date End Date Jeff Strickland MD [address] [place] [address] PCP - General 03/05/18 [place] [address] [address] Orthopedic Surgery 03/28/17 documented as of this encounter
--- OUTSIDE RECORDS SUMMARY | 2024-11-18 14:46 | XMS_ITS | Encounter Summary ---
Author Organization [facility] Address [facility]3 [place] [address] Care Team Providers Care Senior Trial Attorney Name Role Phone Deandre Bojorquez MD Unavailable [phone] Jeff Strickland MD Primary Care Provider [phone] Encounter Details Date Type Department Care Team (Late st Contact Info) Description 03/30/2024 Lab Requisition [facility] MAIN LAB [address] [place] [phone] Alan Davenport MD [facility]1 [facility] OF ABD [place] [address] Social History Tobacco Use Types Packs/Day Years Used Date Smoking Tobacco: Never Smokeless Tobacco: Never Alcohol Use Standard Drinks/Week Comments Not Currently 0 (1 standard drink = 0.6 oz pur e alcohol) socially in past Sex and Gender Information Value Date Recorded Sex Assigned at Male 07/02/2021 2:37 PM CDT Legal Sex Male 10:14 PM MORNING NEWS PRODUCER Gender Identity Male 07/02/2021 2:37 PM CDT [...] 10:00 AM CDT Appointment H IVR [address] [place] [address] Elroy Holcomb MD [address] [place] [address] 2L [place] [address] 11/24/2024 9:05 AM CDT Hospital Encounter [facility] RITO OP [address] [place] [address] Elroy Holcomb MD [address] [place] [address] 2L [place] [address] Surgery General 11/24/2024 9:05 AM CDT - 11/24/2024 11:20 AM CDT Surgery [facility] RITO OP [address] [place] [address] Elroy Holcomb MD [address] [place] [address] 2L [place] [address] Bilateral first toe debridement 12/06/2024 10:40 AM CDT Office Visit [facility] - Endocrinology [address] [place] [address], [place] [phone] Marbin Flores MD 1201 [facility] DIV OF [place] [address] Niraj Turner MD 1225 [facility] 2L [place] [address] 2025 1:00 PM MORNING NEWS PRODUCER Office Visit [facility] Physician Group - Neurology [address] [place] [address], [place] [phone] Becky Wilson MD [address] [place] [phone] Scheduled Procedures Name Priority Associated Diagnoses Date/Ti me IRRIGATION/DEBRIDEMENT WOUND/TISSUE Peripheral artery disease 11/24/2024 9:05 AM CDT AMPUTATION TOE Peripheral artery disease 11/24/2024 9:05 AM CDT documented as of this encounter Procedures Procedure Name Priority Date/Time Associated Diagnosis Comments HOLD HLA SPECIMEN Routine 03/25/2024 2:5 1 PM MORNING NEWS PRODUCER documented in this encounter Results * HOLD HLA SPECIMEN (03/25/2024 2:51 PM MORNING NEWS PRODUCER) Hold HLA Specimen 03/30/2024 4:01 PM MORNING NEWS PRODUCER [facility]) Comment:The Hold HLA specime n has been received into the lab and will be held for 5 years at 4 degrees. Blood BLOOD SPECIMEN / Unknown 03/25/2024 2:51 PM MORNING NEWS PRODUCER 03/30/2024 2:51 PM MORNING NEWS PRODUCER Alan Davenport MD LAB - BLOOD BANK ORDERABLES F inal Result [facility] ([facility]) [address] [place] [address], [facility] documented in this encounter Visit Diagnoses Not on filedocumented in this encounter Additional Health Concerns Infection Onset Date Last Indicated Resolved Time COVID-19 Under Investigation 09/13/2024 09/13/2024 09/13/2024 6:36 AM CDT documented as of this encounter Care Teams Senior Trial Attorney Relationship Specialty Start Date End Date Jeff Strickland MD [address] [place] [address] PCP - General 03/05/18 [place] [address] [place] [address] Orthopedic Surgery 03/28/17 documented as of this encounter
--- OUTSIDE RECORDS SUMMARY | 2024-11-18 14:46 | XMS_ITS | Clinical Summary ---
Author Organization [facility] Address [address] [place] [address] Phone Care Team Providers Care Credit Advisor Name Role Phone Jeff Strickland MD Primary Care Provider [phone] Allergies No known active allergies Medications pantoprazole [...] tablet Take 112 mcg by mouth daily can sorter. Active aspirin (ANGELLA) 325 mg tablet Take 325 mg by mouth daily. Active Vit C-Vit Y-Zegmtr-NiXv-L utein (PRESERVISION) 226 mg-200 unit -5 mg-0.8 [...] Comments Blood Pressure 167/77 02/04/2019 9:16 AM TEAM LEADER Pulse 64 02/04/2019 9:16 AM TEAM LEADER Temperature 36.5 C (97.7 F) 02/04/2019 9:16 AM TEAM LEADER Respiratory Rate 16 02/04/2019 9:16 AM TEAM LEADER Oxygen Saturation 97% 02/04/2019 9:16 AM TEAM LEADER Inhaled Oxygen Concentration - - Weight 113.4 kg (250 lb) 02/04/2019 9:16 AM TEAM LEADER Height 175.3 cm (5' 9) 02/04/2019 9:16 AM TEAM LEADER Body Mass Index 36.92 02/04/2019 9:16 AM TEAM LEADER Plan of Treatment Health Maintenance Due Date [...] HOSPITAL BLUE ACCESS/TRUE BLUE PPO Care Teams Credit Advisor Relationship Specialty Start Date End Date Jeff Strickland MD [address] [facility] [address] [place] [address] PCP - General Family Practice 01/01/19
--- OUTSIDE RECORDS SUMMARY | 2024-11-18 14:46 | XMS_ITS | Clinical Summary ---
Author Organization [facility] Address [address] [place] [address] Care Team Providers Care User Interface Developer Name Role Phone Jeff Strickland MD [...] mouth daily. Active nystatin-triamc inolone (MYCOLOG II) 116708-1.1 UNIT/GM-% Cream 5 Active ondansetron (ZOFRAN-ODT) 4 [...] 10/29/2024 Telephone [facility] - Cardiology [facility] #2 [place] [address] Suly Smith APRN, CHART PICKER 10/15/2024 Telephone [facility] Cardiology [facility] #2 [place] [address] Hannah Goodman MD 10/14/2024 2:40 PM CDT Clinical Support [facility] Cardiology [facility] #2 [facility] [place] [phone] Nurse[facility] Cardiology Dressing change (Primary Dx) Discharge [...] st Contact Info) Description 04/11/2025 11:30 AM IMPROVEMENT DIRECTOR Office Visit [facility] - [facility]iology - [facility] [place] [address] He Maylin, DO 2 [facility] [place] [address] [address] Health Maintenance Due Date Last Done Comments [...] topic Insurance MEDICARE C AET[employer] Care Teams User Interface Developer Relationship Specialty Start Date End Date Jeff Strickland MD [address] [place] [address] PCP - General Family Medicine 10/14/24
--- OUTSIDE RECORDS SUMMARY | 2024-11-18 14:46 | XMS_ITS | Encounter Summary ---
Author Organization [facility] Address [facility]3 [place] [address] Care Team Providers Care Layer Out Plate Glass Name Role Phone Deandre Bojorquez MD Unavailable [phone] Jeff Strickland MD Primary Care Provider [phone] Encounter Details Date Type Department Care Team (Late st Contact Info) Description 06/25/2024 Lab Requisition [facility] MAIN LAB [address] [place] [address] Alan Davenport MD [facility] [place] [address] Social History Tobacco Use Types Packs/Day Years Used Date Smoking Tobacco: Never Smokeless Tobacco: Never Alcohol Use Standard Drinks/Week Comments Not Currently 0 (1 standard drink = 0.6 oz pur e alcohol) socially in past Sex and Gender Information Value Date Recorded Sex Assigned at Male 07/02/2021 2:37 PM CDT Legal Sex Male 10:14 PM SLEEP TECHNICIAN Gender Identity Male 07/02/2021 2:37 PM [...] 10:00 AM CDT Appointment H IVR [address] [place] [address] Elroy Holcomb MD [address] [place] [address] 2L [place] [address] 11/24/2024 9:05 AM CDT Hospital Encounter [facility] RITO OP [address] [place] [address] Elroy Holcomb MD [address] [place] [address] 2L [place] [address] Surgery General 11/24/2024 9:05 AM CDT - 11/24/2024 11:20 AM CDT Surgery [facility] RITO OP [address] [place] [address] Elroy Holcomb MD [address] [place] [address] 2L [place] [address] Bilateral first toe debridement 12/06/2024 10:40 AM CDT Office Visit [facility] - Endocrinology [address] [place] [address], [place] [address] Marbin Flores MD 1201 [facility] DIV [place] [address] Niraj Turner MD 1225 [facility] 2L [place] [address] 2025 1:00 PM SLEEP TECHNICIAN Office Visit [facility] - Neurology [address] [place] [address] [phone] Becky Wilson MD [address] [place] [phone] Scheduled Procedures Name Priority Associated Diagnoses Date/Ti [...] Hold HLA Specimen 06/25/2024 12:32 PM CDT [facility] Comment:The Hold HLA specime n has been received into the lab and will be held for 5 years at 4 degrees. Blood BLOOD SPECIMEN / Unknown 06/22/2024 11:05 AM CDT 06/25/2024 11:05 AM CDT Alan Davenport MD LAB - BLOOD BANK ORDERABLES F inal Result [facility]) [address] documented in this encounter Visit Diagnoses Not on filedocumented in this encounter Additional Health Concerns Infection Onset Date Last Indicated Resolved Time COVID-19 Under Investigation 09/13/2024 09/13/2024 09/13/2024 6:36 AM CDT documented as of this encounter Care Teams Layer Out Plate Glass Relationship Specialty Start Date End Date Jeff Strickland MD [address] [place] [address] PCP - General 03/05/18 [place] [address] [place] [address] Orthopedic Surgery 03/28/17 documented as of this encounter
--- OUTSIDE RECORDS SUMMARY | 2024-11-18 14:46 | XMS_ITS | Encounter Summary ---
Author Organization [facility] Address [facility] [place] [address] Care Team Providers Care Instrument Repair Supervisor Name Role Phone Deandre Bojorquez MD Unavailable [phone] Jeff Strickland MD Primary Care Provider [phone] Encounter Details Date Type Department Care Team (Late st Contact Info) Description 02/04/2024 Lab Requisition [facility] MAIN LAB [address] [place] [address] Alan Davenport MD [facility]1 [facility] [place] [address] Social History Tobacco Use Types Packs/Day Years Used Date Smoking Tobacco: Never Smokeless Tobacco: Never Alcohol Use Standard Drinks/Week Comments Not Currently 0 (1 standard drink = 0.6 oz pur e alcohol) socially in past Sex and Gender Information Value Date Recorded Sex Assigned at Male 07/02/2021 2:37 PM CDT Legal Sex Male 10:14 PM RESOURCE CONSERVATIONIST Gender Identity Male 07/02/2021 2:37 PM CDT [...] 10:00 AM CDT Appointment H IVR [address] [place] [address] Elroy Holcomb MD [address] [place] [address] 2L [place] [address] 11/24/2024 9:05 AM CDT Hospital Encounter [facility] RITO OP [address] [place] [address] Elroy Holcomb MD [address] [place] [address] 2L [place] [address] Surgery General 11/24/2024 9:05 AM CDT - 11/24/2024 11:20 AM CDT Surgery [facility] RITO OP [address] [place] [address] Elroy Holcomb MD [address] [place] [address] 2L [place] [address] Bilateral first toe debridement 12/06/2024 10:40 AM CDT Office Visit [facility] - Endocrinology [address] [place] [address], [place] [phone] Marbin Flores MD 1201 [facility] DIV [place] [address] Niraj Turner MD 1225 [facility] 2L [place] [address] 2025 1:00 PM RESOURCE CONSERVATIONIST Office Visit [facility] Physician Group - Neurology [address] [place] [address], [place] [address] Becky Wilson MD [address] [place] [phone] Scheduled Procedures Name Priority Associated Diagnoses Date/Ti me IRRIGATION/DEBRIDEMENT WOUND/TISSUE Peripheral artery disease 11/24/2024 9:05 AM CDT AMPUTATION TOE Peripheral artery disease 11/24/2024 9:05 AM CDT documented as of this encounter Procedures Procedure Name Priority Date/Time Associated Diagnosis Comments HOLD HLA SPECIMEN Routine 01/27/2024 3:2 3 PM RESOURCE CONSERVATIONIST documented in this encounter Results * HOLD HLA SPECIMEN (01/27/2024 3:23 PM RESOURCE CONSERVATIONIST) Hold HLA Specimen 02/04/2024 4:31 PM RESOURCE CONSERVATIONIST [facility] Comment:The Hold HLA specime n has been received into the lab and will be held for 5 years at 4 degrees. Blood BLOOD SPECIMEN / Unknown 01/27/2024 3:23 PM RESOURCE CONSERVATIONIST 02/04/2024 3:23 PM RESOURCE CONSERVATIONIST Alan Davenport MD LAB - BLOOD BANK ORDERABLES F inal Result [facility] ([facility]) [address] [place] [address], [facility] documented in this encounter Visit Diagnoses Not on filedocumented in this encounter Additional Health Concerns Infection Onset Date Last Indicated Resolved Time COVID-19 Under Investigation 09/13/2024 09/13/2024 09/13/2024 6:36 AM CDT documented as of this encounter Care Teams Instrument Repair Supervisor Relationship Specialty Start Date End Date Jeff Strickland MD [address] [place] [address] PCP - General 03/05/18 [place] [address] [place] [address] Orthopedic Surgery 03/28/17 documented as of this encounter
--- OUTSIDE RECORDS SUMMARY | 2024-11-18 14:46 | XMS_ITS | Clinical Summary ---
Author Organization [facility] Address [facility] [place] [address] Care Team Providers Care Chapter Relations Administrator Name Role Phone Jeff Strickland MD Primary Care Provider [phone] Allergies Active Allergy Reactions Criticality Noted Date [...] by mouth nightly at bedtime. Active Multiple Vitamins-Briaroaks als (PRESERVISION AREDS 2 OR) Take 1 [...] 0.6 oz pur e alcohol) [facility] Utilities Answer Date Recorded In the past 12 months has th e electric, gas, oil, or water [employer] threatened to shut off services in your [...] [place] [facility] (including now)? No 05/02/2023 Sex and Gender Information Value Date Recorded Sex Assigned at Not on file Legal Sex Male 10:10 AM BOAT FUELER Gender Identity Not on file Sexual Orientation [...] discharge from hospital Lifestyle No Alice Rizzo, [facility] Insurance AET[employer] MEDICARE Advance Directives * Full Code (Latest Code Status on File) Date Activated Date Inactivated Comments 05/02/2023 12:46 AM 05/03/2023 12:26 PM Care Teams Chapter Relations Administrator Relationship Specialty Start Date End Date Jeff Strickland MD [address] [facility] [address] [place] [address] PCP - General FAMILY PRACTICE 02/22/23
--- OUTSIDE RECORDS SUMMARY | 2024-11-18 14:46 | XMS_ITS | Encounter Summary ---
Author Organization [facility] Address [address] [place] [address] Care Team Providers Care Plumbing And Heating Contractor Name Role Phone Jeff Strickland MD Primary Care Provider Chan Nicholas MD Unavailable [phone] Alan Mccall MD Unavailable Pepito Haro MD PhD Unavailable Solange Guido MD Unavailable [phone] Encounter Details Date Type Department Care Team (Late st Contact Info) Description 07/26/2024 Orders Only [facility] Health Information Management [address] [place] [id number] Scanning, Provider Social History Tobacco Use Types Packs/Day Years Used Date Smoking Tobacco: Never Smokeless Tobacco: Never Alcohol Use Standard Drinks/Week Comments Yes 0 (1 standard drink = 0.6 oz pur e alcohol) rarely [facility] Utilities Answer Date Recorded In the past 12 months has [employer] electric, gas, oil, or water company threatened [...] on file Legal Sex Male 2:23 AM NATIONAL SALES ASSOCIATE Gender Identity Not on file Sexual Orientation [...] on filedocumented in this encounter Care Teams Plumbing And Heating Contractor Relationship Specialty Start Date End Date Jeff Strickland MD [address] [place] [address] [address] [address] PCP - General Family Medicine 04/02/18 Chan Nicholas MD [facility] [address] [address] Consulting Physician Gastroenterology 11/24/18 Alan Mccall MD [address] [place] [address] [address] [address] Referring Physician Nephrology 11/24/18 Pepito Haro MD PhD [facility] [address] [place] [phone] Consulting Physician Neurosurgery 12/03/22 Solange Guido MD [address] [facility] [address] [place] [address] Referring Physician Cardiovascular Disease 07/23/23 documented as of this encounter
--- OUTSIDE RECORDS SUMMARY | 2024-11-18 14:46 | XMS_ITS | Encounter Summary ---
Author Organization [facility] Address [facility] [place] [address] Care Team Providers Care Enterprise Records Analyst Name Role Phone Deandre Bojorquez MD Unavailable [phone] Jeff Strickland MD Primary Care Provider [phone] Reason for Visit * Reason Onset Date Comments Surgery Rescheduled 11/18/2024 Encounter Details Date Type Department Care Team (Late st Contact Info) Description 11/18/2024 Telephone [facility] - Vascular Surgery [address] [place] [address], [place] [phone] Elroy Holcomb MD [address] [place] [address] [place] [address] Surgery Rescheduled Social History Tobacco Use Types [...] Recorded Patient Health Questionnaire-2 Score 6 10/05/2024 [facility] of Occupat ional Health - [...] PM CDT Legal Sex Male 10:14 PM BUTT SAWYER Gender Identity Male 07/02/2021 2:37 PM CDT [...] Description 11/23/2024 10:00 AM CDT Appointment [facility] IVR [address] [place] [phone] Elroy Holcomb MD [address] [place] [address] 2L [place] [address] 11/24/2024 9:05 AM CDT Hospital Encounter [facility] RITO OP [address]01 [place] [phone] Elroy Holcomb MD [address] [place] [address] 2L [place] [address] Surgery General 11/24/2024 9:05 AM CDT - 11/24/2024 11:20 AM CDT Surgery [facility] RITO OP [address] [place] [phone] Elroy Holcomb MD [facility] [place] 2L [place] [address] Bilateral first toe debridement 12/06/2024 10:40 AM CDT [facility] [address] [place] [address], [place] [phone] Marbin Flores MD [address] [facility] ([place] [place]) DIV OF ABD [place] [address] Niraj Turner MD [address] [place] [address] 2L [place] [address] 2025 1:00 PM BUTT SAWYER Office Visit [facility] - Neurology [address] [place] [address], [place] [address] Becky Wilson MD [address] [place] [phone] Scheduled Procedures Name Priority Associated Diagnoses Date/Ti me IRRIGATION/DEBRIDEMENT WOUND/TISSUE Peripheral artery disease 11/24/2024 9:05 AM CDT AMPUTATION TOE Peripheral artery disease 11/24/2024 9:05 AM CDT documented as of this encounter Visit Diagnoses Not on filedocumented in this encounter Care Teams Enterprise Records Analyst Relationship Specialty Start Date End Date Jeff Strickland MD [address] [place] [address] PCP - General 03/05/18 [place] [address] [place] [address] Orthopedic Surgery 03/28/17 documented as of this encounter
--- OUTSIDE RECORDS SUMMARY | 2024-11-18 14:46 | XMS_ITS | Clinical Summary ---
Author Organization [facility] Address [address] [address] Phone Care Team Providers Care Furniture Mechanic Name Role Phone Jeff Strickland MD Primary Care Provider [phone] Allergies No known active allergies Medications levothyroxine [...] tablet 3 0 Active Continuous Blood Gluc Fish Farm Laborer (FreeStyle Em Bond) device 1 each daily 0 Active Continuous Blood Gluc Sensor (FreeStyle Em Sensor System) misc 1 each once every 2 weeks 0 Active Lancets (OneTouch Delica Plus [id number]) misc OneTouch Delica Plus Lancet 33 gauge [...] 11/10/2019 Overview (12/17/2019): Kendall Carl 1955 Referring Integrated Logistics Programs Director: Alan Mccall Dialysis Info: NOD GFR 13 Type: Time: (Not currently on dialysis) days Blood Type: O NEG Body mass index is 37.36 kg/m . ALERTS Sports Book Server: needs to establish Past Medical History: Diagnosis Date Arthropathy RA. Dr Strickland manages. CHF (congestive heart failure) 2 yrs ago Strap Machine Operator Automatic is Dr. Becerra in [place]. CKD (chronic kidney disease), stage V Community acquired pneumonia 2018 [facility] hospitalized. Diabetes mellitus 20 years. Lantus pen. Esophageal reflux takes med Hypercholesteremia 5-10 yrs meds Hypertension takes meds Hypothyroidism meds 20 years Kidney stones 5-6 years ago had 2 in the same year. Malignancy right kidney 2012 Obstructive sleep apnea 3 years. [facility]. Angela remember doctors name Renal cell [...] file Gets together: Not on file Attends mosque service: Not on file Active member of [...] Impression: It is the impression of this healthcare social worker that Kendall Gillris has several positive factors for Kidney transplant candidacy from a psychosocial perspective. Patient appears to have appropriate knowledge of illness. Patient has sufficient insurance coverage and stable financial situation for post transplant needs. No concerns regarding substance abuse, legal issues, or mental health needs. Patient has adequate support system and appropriate discharge plan. Plan: rider ticket worker to provide supportive services as needed. Patient appears to be a reasonable candidate for transplant from a psychosocial perspective. -Post transplant arrangement forms are needed prior to being listed. -Updated toxicology results needed, per protocol Psychiatric Consult Recommended: No Transplant Residential Program Director: Joy Tam LCSW RD: 11/09/2019 BMI= [...] fitness pal or my food field hockey coach) - Consume no more than 2000 [...] nephrectomy. 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 [id number] Immunizations Immunization Administration Dates Next Due Influenza [...] Insurance [employer] PM INTERFACED INSURANCE Care Teams Furniture Mechanic Relationship Specialty Start Date End Date Jeff Strickland MD [address] [facility] 162 [facility] 120 [place] [address] PCP - General Internal Medicine 07/15/18
--- OUTSIDE RECORDS SUMMARY | 2024-11-18 14:46 | XMS_ITS ---
Author Organization [facility] Address [address] [place] [address] Care Team Providers Care Real Estate Developer Name Role Phone Jeff Strickland MD Primary Care Provider Chan Nicholas MD Unavailable [phone] Alan Mccall MD Unavailable [phone] Pepito Haro MD PhD Unavailable Solange Guido MD Unavailable [phone] Dialysis Access Sites Type Status Location Placement [...] both eyes EGFR Routine 04/13/2024 5:06 AM SAS PROGRAMMER REMOTE HEMOGLOBIN A1C STAT 04/10/2024 11:41 PM SAS PROGRAMMER REMOTE LIPID PANEL STAT 04/10/2024 11:41 PM SAS PROGRAMMER REMOTE from Last 3 Months or Most Recently [...] 300 + = 14 units Active FA-vit Ahyrf-R-yqrg-vitamin D3 (Dialyvite 800-Ultra D) 0.8-2,000 mg-unit tablet [...] total) by mouth 06/04/19 25 Active vitamins A,C,Y-txfx-bzamto (PreserVision AREDS) 4,296 mcg-226 mg-90 mg capsule [...] damage Assessment & Plan (03/09/2024 6:25 PM SAS PROGRAMMER REMOTE): Vision OD trends mild improvement, though still [...] genetic results would not private branch exchange service adviser. Given we have exhausted available treatment without [...] 03/26/2021 Assessment & Plan (03/26/2021 1:17 PM SAS PROGRAMMER REMOTE): Enlarged mild sella turcica on a routine [...] units Assessment & Plan (03/26/2021 1:17 PM SAS PROGRAMMER REMOTE): Chronic, uncontrolled, improving A1c today 7.7 % [...] WNL Assessment & Plan (03/26/2021 1:16 PM SAS PROGRAMMER REMOTE): Pt currently on Levothyroxine 112 mcg oral [...] 11/18/2018 Assessment & Plan (01/21/2019 2:02 PM SAS PROGRAMMER REMOTE): Symptomatic. Will request for esophageal manometry. Continue [...] well Assessment & Plan (03/26/2021 1:16 PM SAS PROGRAMMER REMOTE): On statin therapy Tolerating well Last lipid [...] nephrectomy. 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 [id number] Immunizations Immunization Administration Dates Next Due Hep [...] pur e alcohol) rarely [facility] [email or web address] Answer Date Recorded In the past 12 months has [email or web address], gas, oil, or water [employer] threatened to shut off services in your [...] on file Legal Sex Male 2:23 AM SAS PROGRAMMER REMOTE Gender Identity Not on file Sexual Orientation [...] CDT Respiratory Rate 16 04/13/2024 8:33 AM SAS PROGRAMMER REMOTE Oxygen Saturation 98% 04/13/2024 8:33 AM SAS PROGRAMMER REMOTE Inhaled Oxygen Concentration - - Weight 122.3 [...] Selwyn Wong M.D. LC: MARC Report ID: [id number] Reading Location: [id number] Procedure Note Dolores Wong MD - 10/12/2024 EXAM DESCRIPTION: MRI BRAIN WO CONTRAST REASON FOR STUDY: other symptoms and signs involving cognitive functionsand awareness Cognitive changes, confusion, worse over that last several weeks, noinjury or trauma but patient states he has had several surgeries recently TECHNIQUE: Multiplanar imaging includes non-contrasted T1, T2, FLAIR, and diffusion with ADC map sequences. Additional sequence(s) sensitive GoChime products. Images stored on PACS. COMPARISON: MRI [...] Selwyn Wong M.D. LC: MARC Report ID: [id number] Reading Location: [id number] us Provider Transcribed Order IMG MRI PROCEDURES [...] Result * (ABNORMAL) eGFR (04/13/2024 5:06 AM SAS PROGRAMMER REMOTE) eGFR 5(L) >=60 mL/min/1. 73 m2 Comment: [...] last reviewed 2020. Blood 04/13/2024 5:06 AM SAS PROGRAMMER REMOTE 04/13/2024 5:31 AM SAS PROGRAMMER REMOTE us Saul Engle MD LAB BLOOD ORDERABLES Final Resul t [facility] One [facility] Department of Laboratories [place], [place] [id number] * (ABNORMAL) Lipid panel (04/10/2024 11:41 PM SAS PROGRAMMER REMOTE) Cholesterol 145 30 - 199 mg/dL Comment: [...] on 2017. Triglycerides 453(H) <=149 mg/dL [facility] Comment: Interpretive Data Ages < or [...] on 2017. HDL 22(L) >=40 mg/dL [facility] Comment: Interpretive Data Ages < or [...] 2017. LDL, calculated See Comment <=129 [facility] Comment: Unable to calculate LDL due [...] on 2023. Non-HDL Cholesterol 123 mg/dL [facility] Comment: Interpretive Data Ages < or [...] revised on 2017. Chol/HDL ratio 7 [facility] Blood 04/10/2024 11:4 1 PM SAS PROGRAMMER REMOTE 04/10/2024 11:55 PM SAS PROGRAMMER REMOTE us Nicole Boo MD LAB BLOOD ORDERABLES Final Result [facility] One [facility] [place] [address] from Last 3 Months or Most Recently Relevant to Health Maintenance
--- OUTSIDE RECORDS SUMMARY | 2024-11-18 14:46 | XMS_ITS | Encounter Summary ---
Author Organization [facility] Address [facility] [place] [address] Care Team Providers Care Adjunct Instructor In Economics Name Role Phone Deandre Bojorquez MD Unavailable [phone] Jeff Strickland MD Primary Care Provider [phone] Encounter Details Date Type Department Care Team (Late st Contact Info) Description 09/30/2023 Lab Requisition [facility] MAIN LAB [address] [place] [phone] Alan Davenport MD [facility] OF [place] [address] Social History Tobacco Use Types Packs/Day Years Used Date Smoking Tobacco: Never Smokeless Tobacco: Never Alcohol Use Standard Drinks/Week Comments Not Currently 0 (1 standard drink = 0.6 oz pur e alcohol) socially in past Sex and Gender Information Value Date Recorded Sex Assigned at Male 07/02/2021 2:37 PM CDT Legal Sex Male 10:14 PM RETAIL MANAGEMENT KEYHOLDER Gender Identity Male 07/02/2021 2:37 PM CDT [...] 10:00 AM CDT Appointment H IVR [address] [place] [address] Elroy Holcomb MD [address] [place] [address] 2L [place] [address] 11/24/2024 9:05 AM CDT Hospital Encounter [facility] RITO OP [address] [place] [address] Elroy Holcomb MD [address] [place] [address] 2L [place] [address] Surgery General 11/24/2024 9:05 AM CDT - 11/24/2024 11:20 AM CDT Surgery [facility] RITO OP [address] [place] [address] Elroy Holcomb MD [address] [place] [address] 2L [place] [address] Bilateral first toe debridement 12/06/2024 10:40 AM CDT Office Visit [facility] - Endocrinology [address] [place] [address], [place] [address] Marbin Flores MD [address] [facility] DIV [place] [address] Niraj Turner MD 1225 [facility] 2L [place] [address] 2025 1:00 PM RETAIL MANAGEMENT KEYHOLDER Office Visit [facility] - Neurology [address] [place] [address], [place] [address] Becky Wilson MD [address] [place] [phone] Scheduled Procedures Name Priority Associated Diagnoses Date/Ti [...] Hold HLA Specimen 09/30/2023 4:32 PM CDT [facility]) Comment:The Hold HLA specime n has been received into the lab and will be held for 5 years at 4 degrees. Blood BLOOD SPECIMEN / Unknown 09/24/2023 3:27 PM CDT 09/30/2023 3:27 PM CDT Alan Davenport MD LAB - BLOOD BANK ORDERABLES F inal Result [facility] ([facility]) [address] documented in this encounter Visit Diagnoses Not on filedocumented in this encounter Additional Health Concerns Infection Onset Date Last Indicated Resolved Time COVID-19 Under Investigation 09/13/2024 09/13/2024 09/13/2024 6:36 AM CDT documented as of this encounter Care Teams Adjunct Instructor In Economics Relationship Specialty Start Date End Date Jeff Strickland MD [address] [place] [address] PCP - General 03/05/18 [place] [address] [place] [address] Orthopedic Surgery 03/28/17 documented as of this encounter
--- OUTSIDE RECORDS SUMMARY | 2024-11-18 14:46 | XMS_ITS | Encounter Summary ---
Author Organization [facility] Address [address] [facility] [place] [address] Care Team Providers Care [place] Actor Name Role Phone Deandre Bojorquez MD Unavailable Jeff Strickland MD Primary Care Provider [phone] Encounter Details Date Type Department Care Team (Late st Contact Info) Description 11/12/2024 Orders Only [facility] [address] [place] [address] Griffin Rodriguez MD 1225 [facility] DIV OF [facility] [address] 2L [place] [phone] Social History Tobacco Use Types Packs/Day Years [...] Recorded Patient Health Questionnaire-2 Score 6 10/05/2024 [facility] of Occupat ional Health - [...] PM CDT Legal Sex Male 10:14 PM FINE WIRE DRAWER Gender Identity Male 07/02/2021 2:37 PM CDT [...] 10:00 AM CDT Appointment [facility] IVR [address] [place] [address] Elroy Holcomb MD [address] [place] [address] 2L [place] [address] 11/24/2024 9:05 AM CDT Hospital Encounter [facility] RITO OP [address] [place] [address] Elroy Holcomb MD [address] [place] [address] 2L [place] [address] Surgery General 11/24/2024 9:05 AM CDT - 11/24/2024 11:20 AM CDT Surgery [facility] RITO OP [address] [place] [address] Elroy Holcomb MD [address] [place] [address] 2L [place] [address] Bilateral first toe debridement 12/06/2024 10:40 AM CDT Office Visit [facility] - Endocrinology [address] [place] [address], [place] [address] Marbin Flores MD 12[address] S [facility] DIV [place] [address] Niraj Turner MD 1225 [facility] 2L [place] [address] 2025 1:00 PM FINE WIRE DRAWER Office Visit [facility] - Neurology [address] [place] [address], [place] [address] Becky Wilson MD [facility]5 [place] [address] Scheduled Procedures Name Priority Associated Diagnoses Date/Ti me IRRIGATION/DEBRIDEMENT WOUND/TISSUE Peripheral artery disease 11/24/2024 9:05 AM CDT AMPUTATION TOE Peripheral artery disease 11/24/2024 9:05 AM CDT documented as of this encounter Visit Diagnoses Not on filedocumented in this encounter Care Teams [place] Actor Relationship Specialty Start Date End Date Jeff Strickland MD [address] [place] [address] PCP - General 03/05/18 [place] [address] [place] [address] Orthopedic Surgery 03/28/17 documented as of this encounter
--- OUTSIDE RECORDS SUMMARY | 2024-11-18 14:46 | XMS_ITS | Encounter Summary ---
Author Organization [facility] Address [address] [facility] [place] [address] Care Team Providers Care Investigative Agent Name Role Phone Deandre Bojorquez MD Unavailable [phone] Jeff Strickland MD Primary Care Provider [phone] Reason for Visit * Reason Onset Date Comments Post-Op 09/03/2024 Encounter Details Date Type Department Care Team (Late st Contact Info) Description 09/03/2024 Telephone [facility] - Cardiology [address] [facility] [address] [place] [address] Hannah Goodman MD [address] [facility] CARDIOLOGY 2L [place] [address] Post-Op Social History Tobacco Use Types Packs/Day [...] and heating? Not hard at all 09/04/2024 [facility] of Occupat ional Health - Occupational Stress [...] in the past [address] [facility], were you homeless or living in a residential (including now)? No 09/04/2024 Sex and Gender Information Value Date Recorded Sex Assigned at Male 07/02/2021 2:37 PM CDT Legal Sex Male 10:14 PM DIRECT CHILL CASTER Gender Identity Male 07/02/2021 2:37 PM CDT [...] confused post op Patient Call Back number: [phone] documented in this encounter Plan of Treatment Upcoming Encounters Date Type Department Care Team (Late st Contact Info) Description 11/23/2024 10:00 AM CDT Appointment [facility] IVR [address] [place] [address] Elroy Holcomb MD [address] [place] [address] 2L DIV [place] [address] 11/24/2024 9:05 AM CDT Hospital Encounter [facility] RITO OP [address] [place] [address] Elroy Holcomb MD [address] [place] [address] 2L DIV [place] [address] Surgery General 11/24/2024 9:05 AM CDT - 11/24/2024 11:20 AM CDT Surgery [facility] RTIO OP [address] [place] [address] Elroy Holcomb MD [address] [place] [address] 2L DIV [place] [address] Bilateral first toe debridement 12/06/2024 10:40 AM CDT Office Visit [facility] - Endocrinology [address] [place] [address], [place] [phone] Marbin Flores MD [address] [place] [address] DIV OF ABD [place] [address] Niraj Turner MD [address] [place] [address] 2L [place] [address] 2025 1:00 PM DIRECT CHILL CASTER Office Visit [facility] - Neurology [facility]5 [facility], [place] [address] Becky Wilson MD [address] [place] [address] Scheduled Procedures Name Priority Associated Diagnoses Date/Ti [...] documented as of this encounter Care Teams Investigative Agent Relationship Specialty Start Date End Date Jeff Strickland MD [address] [place] [address] PCP - General 03/05/18 [place] [address] [address] Orthopedic Surgery 03/28/17 documented as of this encounter
--- OUTSIDE RECORDS SUMMARY | 2024-11-18 14:46 | XMS_ITS | Encounter Summary ---
Author Organization [facility] Address [address] [place] [address] Care Team Providers Care Treasury Consultant Name Role Phone Deandre Bojorquez MD Unavailable [phone] Jeff Strickland MD Primary Care Provider [phone] Encounter Details Date Type Department Care Team (Late st Contact Info) Description 09/24/2024 Results Follow-Up [facility] Early Admission Unit [address] [place] [phone] Angel Crook MD [address] [place] [address] Social History Tobacco Use Types Packs/Day Years [...] and heating? Not hard at all 09/24/2024 [facility] [place] of Occupat ional Health - Occupational Stress [...] any time in the past 12 m [facility], were you homeless or living in a skilled nursing (including now)? No 09/24/2024 Sex and Gender Information Value Date Recorded Sex Assigned at Male 07/02/2021 2:37 PM CDT Legal Sex Male 10:14 PM AUTO BODY DETAILER Gender Identity Male 07/02/2021 2:37 PM CDT [...] Description 11/23/2024 10:00 AM CDT Appointment [facility] IVR [address] [place] [address] Elroy Holcomb MD [facility]5 [facility] 2L DIV [place] [address] 11/24/2024 9:05 AM CDT Hospital Encounter [facility] RITO OP [address] [place] [address] Elroy Holcomb MD [address] [place] [address] 2L [place] [address] Surgery General 11/24/2024 9:05 AM CDT - 11/24/2024 11:20 AM CDT Surgery [facility] RITO OP [address] [place] [address] Elroy Holcomb MD 1225 [facility] 2L DIV [place] [address] Bilateral first toe debridement 12/06/2024 10:40 AM CDT Office Visit [facility] - Endocrinology [address] [place] [address], [place] [phone] Marbin Flores MD 12[address] [facility] DIV OF ABD [place] [address] Niraj Turner MD [facility]5 [facility] 2L [place] [address] 2025 1:00 PM AUTO BODY DETAILER Office Visit [facility] - Neurology [address] [place] [address], [place] [address] Becky Wilson MD [address] [place] [phone] Scheduled Procedures Name Priority Associated Diagnoses Date/Ti me IRRIGATION/DEBRIDEMENT WOUND/TISSUE Peripheral artery disease 11/24/2024 9:05 AM CDT AMPUTATION TOE Peripheral artery disease 11/24/2024 9:05 AM CDT documented as of this encounter Visit Diagnoses Not on filedocumented in this encounter Care Teams Treasury Consultant Relationship Specialty Start Date End Date Jeff Strickland MD [address] [place] [address] PCP - General 03/05/18 [place] [address] [address] Orthopedic Surgery 03/28/17 documented as of this encounter
--- OUTSIDE RECORDS SUMMARY | 2024-11-18 14:46 | XMS_ITS | Encounter Summary ---
Author Organization [facility] Address [facility] [place] [address] Care Team Providers Care Director Hair Name Role Phone Deandre Bojorquez MD Unavailable [phone] Jeff Strickland MD Primary Care Provider [phone] Encounter Details Date Type Department Care Team (Late st Contact Info) Description 04/10/2023 Lab Requisition [facility] MAIN LAB [address] [place] [id number] Alan Davenport MD [facility] [place] [address] Social History Tobacco Use Types Packs/Day Years Used Date Smoking Tobacco: Never Smokeless Tobacco: Never Alcohol Use Standard Drinks/Week Comments Not Currently 0 (1 standard drink = 0.6 oz pur e alcohol) socially in past Sex and Gender Information Value Date Recorded Sex Assigned at Male 07/02/2021 2:37 PM CDT Legal Sex Male 10:14 PM ELECTRIC DETECTOR OPERATOR Gender Identity Male 07/02/2021 2:37 PM [...] Assessment Author No 08/04/2020 12:15 PM CDT Moniuqe Suárez RN documented as of this encounter Mental Status * Does person have difficulty concentrating/remembering/making decisions? Answer Entry Date Author No 08/04/2020 12:15 PM CDT Monique Suárez RN documented in this encounter Plan of Treatment Upcoming Encounters Date Type Department Care Team (Late st Contact Info) Description 11/23/2024 10:00 AM CDT Appointment H IVR [address] [place] [address] Elroy Holcomb MD [address] [place] [address] [address] [place] [address] 11/24/2024 9:05 AM CDT Hospital Encounter [facility] RITO OP [address] [place] [address] Elroy Holcomb MD [address] [place] [address] [address] [place] [address] Surgery General 11/24/2024 9:05 AM CDT - 11/24/2024 11:20 AM CDT Surgery [facility] RITO OP [address] [place] [address] Elroy Holcomb MD [address] [place] [address] [address] [place] [address] Bilateral first toe debridement 12/06/2024 10:40 AM CDT Office Visit [facility] - Endocrinology [address] [place] [address], [place] [phone] Marbin Flores MD [address] [facility] [place] [address] Niraj Turner MD [address] [facility] 2L [place] [address] 2025 1:00 PM ELECTRIC DETECTOR OPERATOR Office Visit [facility] - Neurology [address] [place] [address], [place] [phone] Becky Wilson MD [address] [place] [phone] Scheduled Procedures Name Priority Associated Diagnoses Date/Ti me IRRIGATION/DEBRIDEMENT WOUND/TISSUE Peripheral artery disease 11/24/2024 9:05 AM CDT AMPUTATION TOE Peripheral artery disease 11/24/2024 9:05 AM CDT documented as of this encounter Procedures Procedure Name Priority Date/Time Associated Diagnosis Comments HOLD HLA SPECIMEN Routine 04/02/2023 3:0 1 PM ELECTRIC DETECTOR OPERATOR documented in this encounter Results * HOLD HLA SPECIMEN (04/02/2023 3:01 PM ELECTRIC DETECTOR OPERATOR) Hold HLA Specimen 04/10/2023 4:01 PM ELECTRIC DETECTOR OPERATOR [facility] ([facility]) Comment:The Hold HLA specime n has been received into the lab and will be held for 5 years at 4 degrees. Blood BLOOD SPECIMEN / Unknown 04/02/2023 3:01 PM ELECTRIC DETECTOR OPERATOR 04/10/2023 3:01 PM ELECTRIC DETECTOR OPERATOR Alan Davenport MD LAB - BLOOD BANK ORDERABLES F inal Result [facility] ([facility]) [address] [place] [address], [facility] documented in this encounter Visit Diagnoses Not on filedocumented in this encounter Additional Health Concerns Infection Onset Date Last Indicated Resolved Time COVID-19 Under Investigation 09/13/2024 09/13/2024 09/13/2024 6:36 AM CDT documented as of this encounter Care Teams Director Hair Relationship Specialty Start Date End Date Jeff Strickland MD [address] [place] [address] PCP - General 03/05/18 [place] [address] [place] [address] Orthopedic Surgery 03/28/17 documented as of this encounter
--- OUTSIDE RECORDS SUMMARY | 2024-11-18 14:46 | XMS_ITS | Encounter Summary ---
Author Organization [facility] Address [facility] [place] [address] Care Team Providers Care Print Designer Name Role Phone Deandre Bojorquez MD Unavailable [phone] Jeff Strickland MD Primary Care Provider [phone] Encounter Details Date Type Department Care Team (Late st Contact Info) Description 05/29/2023 Lab Requisition [facility] LAB [address] [place] [phone] Alan Davenport MD [facility] [place] [address] Social History Tobacco Use Types Packs/Day Years Used Date Smoking Tobacco: Never Smokeless Tobacco: Never Alcohol Use Standard Drinks/Week Comments Not Currently 0 (1 standard drink = 0.6 oz pur e alcohol) socially in past Sex and Gender Information Value Date Recorded Sex Assigned at Male 07/02/2021 2:37 PM CDT Legal Sex Male 10:14 PM PIPELINES SUPERINTENDENT Gender Identity Male 07/02/2021 2:37 PM CDT [...] 08/04/2020 12:15 PM CDT Monqiue Suárez RN documented as of this encounter Mental Status * Does person have difficulty concentrating/remembering/making decisions? Answer Entry Date Author No 08/04/2020 12:15 PM CDT Monique Suárez RN documented in this encounter Plan of Treatment Upcoming Encounters Date Type Department Care Team (Late st Contact Info) Description 11/23/2024 10:00 AM CDT Appointment H IVR [address] [place] [address] Elroy Holcomb MD [address] [place] [address] [address] [place] [address] 11/24/2024 9:05 AM CDT Hospital Encounter [facility] RIT[facility] OP [address] [place] [address] Elroy Holcomb MD [address] [place] [address] 2[address] [place] [address] Surgery General 11/24/2024 9:05 AM CDT - 11/24/2024 11:20 AM CDT Surgery [facility] R[facility] OP [address] [place] [address] Elroy Holcomb MD [address] [place] [address] 2[address] [place] [address] Bilateral first toe debridement 12/06/2024 10:40 AM CDT Office Visit [facility] - Endocrinology [address] [place] [address], [place] [phone] Marbin Flores MD [address] [facility] DIV [place] [address] Niraj Turner MD 1225 [facility] 2L [place] [address] 2025 1:00 PM PIPELINES SUPERINTENDENT Office Visit [facility] - Neurology [address] [place] [address], [place] [phone] Becky Wilson MD [address] [place] [phone] Scheduled Procedures Name Priority Associated Diagnoses Date/Ti [...] Hold HLA Specimen 05/29/2023 10:30 AM CDT [facility] Comment:The Hold HLA specime n has been received into the lab and will be held for 5 years at 4 degrees. Blood BLOOD SPECIMEN / Unknown 05/21/2023 9:24 AM CDT 05/29/2023 9:24 AM CDT lAan Davenport MD LAB - BLOOD BANK ORDERABLES F inal Result [facility] ([facility]) [address] documented in this encounter Visit Diagnoses Not on filedocumented in this encounter Additional Health Concerns Infection Onset Date Last Indicated Resolved Time COVID-19 Under Investigation 09/13/2024 09/13/2024 09/13/2024 6:36 AM CDT documented as of this encounter Care Teams Print Designer Relationship Specialty Start Date End Date Jeff Strickland MD [address] [place] [address] PCP - General 03/05/18 [place] [address] [place] [address] Orthopedic Surgery 03/28/17 documented as of this encounter
--- OUTSIDE RECORDS SUMMARY | 2024-11-18 14:46 | XMS_ITS | Clinical Summary ---
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 IVUS Routine 09/01/2024 2:1 8 PM CDT Abnormal stress test Dyspnea on exertion Pre-kidney transplant, listed Coronary artery disease with angina pectoris, unspecified vessel or lesion type, unspecified whether comanche or transplanted heart Abnormal findings on cardiac catheterization CCL STAGED PERC CORONARY INTERVENTION Routine 09/01/2024 2:18 PM CDT Abnormal stress test Dyspnea on exertion Pre-kidney transplant, listed Coronary artery disease with angina pectoris, unspecified vessel or lesion type, unspecified whether comanche or transplanted heart Abnormal findings on cardiac catheterization GLUCOSE - POINT OF CARE Routine 09/01/2024 10:00 AM CDT CBC W/O DIFFERENTIAL ANDIE 09/01/2024 9:57 AM CDT Coronary artery disease with angina pectoris, unspecified vessel or lesion type, unspecified whether comanche or transplanted heart Abnormal findings on cardiac catheterization BASIC METABOLIC PANEL (CALCIUM TOTAL) ANDIE 09/01/2024 9:57 AM CDT Coronary artery disease with angina pectoris, unspecified vessel or lesion type, unspecified whether comanche or transplanted heart Abnormal findings on cardiac [...] Routine 08/18/2024 2:33 PM CDT 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) [...] ARTERY 08/18/2024 10:49 AM CDT 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) GLUCOSE - POINT OF CARE Routine 08/18/2024 10:15 AM CDT BASIC METABOLIC PANEL (CALCIUM TOTAL) ANDIE 08/18/2024 10:11 AM CDT 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) CBC W/O DIFFERENTIAL ANDIE 08/18/2024 10:01 AM CDT 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) HEPATITIS C ANTIBODY Routine 06/16/2024 4:15 PM CDT Pre-kidney transplant, listed ESRD (end stage renal disease) (HCC) 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, without long-term current use of insulin (HCC) Hypertension, unspecified type Oncocytoma Kidney stones SHABNAM on CPAP Coronary artery disease involving comanche coronary artery of comanche heart, unspecified whether angina present from Last 3 Months or Most Recently Relevant to Health Maintenance Results * IR Angiogram Bilateral Leg (11/12/2024 9:06 AM CDT) Anatomical Region Laterality Modality Lower Extremity X-Ray Angiograph y 11/12/2024 9:47 AM CDT Impressions 11/12/2024 3:38 PM CDT IMPRESSION: Left lower extremity angiogram with patent STEM MAKER, SFA with areas of < 50% stenosis, patent TP trunk with occlusions in the peroneal and PT shortly after origin, with single vessel runoff to the foot via the AT with occlusion in the DP in the foot. Right lower extremity angiogram with patent STEM MAKER, SFA, and TP trunk with an occluded [...] Owusu 11/12/2024 9:47 AM > Dictated by Willow Worker I, Elroy Holcomb MD have personally reviewed [...] monitored moderate sedation ATTENDING: Elroy Holcomb MD SHAKER OUT: Griffin Rodriguez MD; Elroy Owusu MD ANESTHESIA: [...] exchanges this was upsized for a 5 Lao sheath. A guidewire and omniflush catheter were [...] evaluation, please review the evaluation forms in [facility]. For details on monitored clinical parameters during the intra-service sedation time, please review the procedure nurse documentation in [facility]. Procedure Note Elroy Holcomb MD - [...] monitored moderate sedation ATTENDING: Elroy Holcomb MD SHAKER OUT: Griffin Rodriguez MD; Elroy Owusu MD ANESTHESIA: [...] of exchanges thiswas upsized for a 5 Lao sheath. A guidewire and omniflush catheter werethen [...] evaluation, please review the evaluation forms in [facility]. For details on monitored clinical parameters during the intra-service sedation time, please review the procedure nurse documentation in [facility]. IMPRESSION: Left lower extremity angiogram with patent STEM MAKER, SFA with areas of < 50% stenosis, patent TP trunk with occlusions in the peroneal and PT shortly after origin, with single vessel runoff to the foot via the AT with occlusion in the DP in the foot. Right lower extremity angiogram with patent STEM MAKER, SFA, and TP trunk with an occluded AT distally, andocclusion in peroneal at level of ankle, and multifocal areas of stenosis in thePT which appears occluded at the level of the ankle. Successful deploymentof 5 Fr Mynx control closure device. Total fluoroscopy time of 4.2min. Total contrast usage of 60mL > Dictated by Elroy Owusu 11/12/2024 9:47 AM > Dictated by Willow Worker I, Elroy Holcomb MD have personally reviewed and interpreted this examination/study. > Interpreting Provider: Elroy Holcomb MD on 11/12/2024 3:38 PM us Elroy Holcomb MD IR ORDERABLES Final Resu lt * (ABNORMAL) BASIC METABOLIC PANEL (CALCIUM TOTAL) (11/12/2024 7:11 AM CDT) Only the most recent of7 resultswithin the time period is included. BUN 28(H) 7 - 26 mg/dL 11/12/2024 7:59 AM [facility] Creatinine 7.33(H) 0.71 - 1.16 mg/dL 11/12/2024 7:59 AM [facility] Sodium 138 136 - 145 mmol/L 11/12/2024 7:59 AM [facility] Potassium 3.5 3.5 - 4.5 mmol/L 11/12/2024 7:59 AM [facility] Chloride 97(L) 98 - 107 mmol/L 11/12/2024 7:59 AM [facility] CO2 25 22 - 29 mmol/L 11/12/2024 7:59 AM [facility] Glucose 164(H) 70 - 99 mg/dL 11/12/2024 7:59 AM [facility] Calcium 7.8(L) 8.4 - 10.2 mg/dL 11/12/2024 7:59 AM [facility] Anion Gap 16 6 - 16 11/12/2024 7:59 AM [facility] BUN/Creatinine Ratio 4(L) 7 - 23 11/12/2024 7:59 AM [facility] Osmolality Calculated 295 275 - 295 mOsm/kg 11/12/2024 7:59 AM [facility] eGFR by CKD-EPI 8(L) >=90 mL/min/1.7 3 m2 11/12/2024 7:59 AM [facility] Comment:Estimated Glomerular Filtration Rate (eGFR) calculated using the CKD-EPI Creatinine Equation (2020), per the National Kidney Foundation and [place] Society of Nephrology recommendations. Blood BLOOD SPECIMEN / Unknown Lab Venipuncture / Unknown 11/12/2024 7:11 AM CDT 11/12/2024 7:44 AM CDT Elroy Holcomb MD LAB - CHEMISTRY ORDERABLES Final Result [facility] [address] [place] [address], [facility] [phone] * (ABNORMAL) GLUCOSE - POINT OF CARE (11/12/2024 7:05 AM CDT) Only the most recent of56 resultswithin the time period is included. Glucose WB/POC 193(H) 70 - 99 mg/dL 11/12/2024 7:06 AM [facility] Specimen Type Venous 11/12/2024 7:06 AM [facility] Blood BLOOD SPECIMEN / Unknown 11/12/2024 7:05 AM CDT 11/12/2024 7:06 AM CDT Elroy Holcomb MD LAB - POINT OF CARE ORDERA BLES Final Result Performing Organization Address [facility]/ZIP Co de Phone Number [address] [address], [facility] [phone] * CARDIAC EKG ORDER (10/29/2024 4:31 PM [...] 71(H) <=35 ng/L 10/28/2024 3:13 AM CDT [facility] Delta Troponin I HS 10/28/2024 3:13 AM CDT [facility] Comment:Delta value intentio tito not calculated. Baseline to 1 hour specimen collection interval exceeded. Blood BLOOD SPECIMEN / Unknown Venipuncture / Unknown 10/28/2024 2:31 AM CDT 10/28/2024 2:37 AM CDT us Savanna Mcfarlane MD LAB - CHEMISTRY ORDERABLES Fi nal Result Performing Organization Address [facility] Co de Phone Number [address] [address], [facility] [phone] * LACTIC ACID BLOOD REFLEX TO REPEAT [...] nal Result [facility] [address] [place] [address], [facility] [phone] * XR Chest 2Vw (10/27/2024 11:58 PM CDT) Only the most recent of4 resultswithin the time period is included. Anatomical Region Laterality Modality Chest Digital Radiogra phy 10/28/2024 12:0 2 AM CDT Narrative 10/28/2024 3:32 AM CDT PROCEDURE: XR CHEST 2VW, DATE/TIME OF EXAM: 10/27/2024 11:58 PM, LOCATION [facility] INDICATION: R07.9: Chest pain, [...] > Dictated by Branden Jha MD, (radiology assistant). > Dictated by Willow Worker I, Blake Plasencia MD have personally reviewed and interpreted this examination/study. > Interpreting Provider: Blake Plasencia MD on 10/28/2024 3:32 AM Procedure Note Blake Plasencia MD - 10/28/2024 PROCEDURE: XR CHEST 2VW, DATE/TIME OF EXAM: 10/27/2024 11:58 PM, LOCATION [facility] INDICATION: R07.9: Chest pain, [...] > Dictated by Branden Jha MD, (radiology assistant). > Dictated by Willow Worker I, Blake Plasencia MD have personally reviewed and interpreted this examination/study. > Interpreting Provider: Blake Plasencia MD on 10/28/2024 3:32 AM Savanna Mcfarlane MD DIAGNOSTIC IMAGING ORDERABLES Final Result * (ABNORMAL) TROPONIN-I HIGH SENSITIVE BASELINE + 1HR (10/27/2024 11:53 PM CDT) Only the most recent of8 resultswithin the time period is included. [facility] Troponin I High Sensitive 72(H) <=35 ng/L 10/28/2024 12:49 AM [facility] Blood BLOOD SPECIMEN / Unknown Venipuncture / Unknown 10/27/2024 11:53 PM CDT 10/28/2024 12:12 AM CDT Savanna Mcfarlane MD LAB - CHEMISTRY ORDERABLES Fi nal Result [address] [address], [facility] [phone] * (ABNORMAL) CBC W AUTO DIFFERENTIAL (10/27/2024 11:53 PM CDT) Only the most recent of11 resultswithin the time period is included. [facility] WBC 7.8 4.0 - 10.7 x10E9/L 10/28/2024 12:26 AM [facility] RBC Count 3.31(L) 4.30 - 5.80 x10E12/L 10/28/2024 12:26 AM [facility] Hemoglobin 9.0(L) 13.3 - 17.5 g/dL 10/28/2024 12:26 AM [facility] Hematocrit 27.9(L) 38.7 - 51.1 % 10/28/2024 12:26 AM [facility] MCV 84.3 80.0 - 98.0 fL 10/28/2024 12:26 AM [facility] MCH 27.2 26.7 - 33.6 pg 10/28/2024 12:26 AM [facility] MCHC 32.3 31.7 - 36.3 g/dL 10/28/2024 12:26 AM [facility] RDW-CV 15.9(H) 11.3 - 14.8 % 10/28/2024 12:26 AM [facility] Platelet Count 187 150 - 420 x10E9/L 10/28/2024 12:26 AM [facility] MPV 10.2 7.8 - 11.4 fL 10/28/2024 12:26 AM [facility] Neutrophil % 67.0 41.0 - 74.0 % 10/28/2024 12:26 AM [facility] Lymphocyte % 16.4(L) 17.0 - 47.0 % 10/28/2024 12:26 AM [facility] Monocyte % 14.0(H) 3.0 - 11.0 % 10/28/2024 12:26 AM [facility] Eosinophil % 1.9 0.0 - 7.0 % 10/28/2024 12:26 AM [facility] Basophil % 0.1 0.0 - 1.6 % 10/28/2024 12:26 AM [facility] Immature Granulocytes % 0.6 0.0 - 1.0 % 10/28/2024 12:26 AM [facility] Neutrophil Absolute 5.23 1.60 - 7.50 x10E9/L 10/28/2024 12:26 AM [facility] Lymphocyte Absolute 1.28 1.00 - 4.40 x10E9/L 10/28/2024 12:26 AM [facility] Monocyte Absolute 1.09(H) 0.15 - 1.00 x10E9/L 10/28/2024 12:26 AM [facility] Eosinophil Absolute 0.15 0.00 - 0.60 x10E9/L 10/28/2024 12:26 AM [facility] Basophil Absolute 0.01 0.00 - 0.13 x10E9/L 10/28/2024 12:26 AM [facility] Blood BLOOD SPECIMEN / Unknown Venipuncture / Unknown 10/27/2024 11:53 PM CDT 10/28/2024 12:13 AM CDT us Savanna Mcfarlane MD LAB - HEMATOLOGY ORDERABLES F inal Result [facility] [address] [place] [address], [facility] [phone] * (ABNORMAL) COMPREHENSIVE METABOLIC PANEL (10/27/2024 11:53 PM CDT) Only the most recent of13 resultswithin the time period is included. BUN 34(H) 7 - 26 mg/dL 10/28/2024 12:45 AM [facility] Creatinine 7.86(H) 0.71 - 1.16 mg/dL 10/28/2024 12:45 AM [facility] Sodium 132(L) 136 - 145 mmol/L 10/28/2024 12:45 AM [facility] Potassium 3.5 3.5 - 4.5 mmol/L 10/28/2024 12:45 AM [facility] Chloride 95(L) 98 - 107 mmol/L 10/28/2024 12:45 AM [facility] CO2 25 22 - 29 mmol/L 10/28/2024 12:45 AM [facility] Glucose 104(H) 70 - 99 mg/dL 10/28/2024 12:45 AM [facility] Calcium 8.5 8.4 - 10.2 mg/dL 10/28/2024 12:45 AM [facility] Protein Total 5.6(L) 6.0 - 8.3 g/dL 10/28/2024 12:45 AM [facility] Albumin 2.2(L) 3.4 - 5.0 g/dL 10/28/2024 12:45 AM [facility] Bilirubin Total 0.3 0.2 - 1.2 mg/dL 10/28/2024 12:45 AM [facility] Alkaline Phosphatase 104 40 - 150 U/L 10/28/2024 12:45 AM [facility] ALT 56(H) 5 - 55 U/L 10/28/2024 12:45 AM [facility] AST 48(H) 5 - 34 U/L 10/28/2024 12:45 AM [facility] Anion Gap 12 6 - 16 10/28/2024 12:45 AM [facility] BUN/Creatinine Ratio 4(L) 7 - 23 10/28/2024 12:45 AM [facility] Osmolality Calculated 282 275 - 295 mOsm/kg 10/28/2024 12:45 AM [facility] Albumin/Globulin Ratio 0.6(L) 1.1 - 2.3 10/28/2024 12:45 AM [facility] eGFR by CKD-EPI 7(L) >=90 mL/min/1.7 3 m2 10/28/2024 12:45 AM [facility] Comment:Estimated Glomerular Filtration Rate (eGFR) calculated using the CKD-EPI Creatinine Equation (2020), per the National Kidney Foundation and [place] Society of Nephrology recommendations. Blood BLOOD SPECIMEN / Unknown Venipuncture / Unknown 10/27/2024 11:53 PM CDT 10/28/2024 12:12 AM CDT us Savanna Mcfarlane MD LAB - CHEMISTRY ORDERABLES [facility] Result [facility] [address] [place] [address], [facility] [phone] * LIPASE BLOOD (10/27/2024 11:53 PM CDT) Only the most recent of3 resultswithin the time period is included. Lipase 41 8 - 78 U/L 10/28/2024 12:45 AM T [facility] Blood BLOOD SPECIMEN / Unknown Venipuncture / Unknown 10/27/2024 11:53 PM CDT 10/28/2024 12:12 AM CDT Narrative [facility] - 10/28/2024 12:45 AM CDT Lipase results from the Matthew Alinity analyzer may not be comparable with other methodologies. us Savanna Mcfarlane MD LAB - CHEMISTRY ORDERABLES Fi nal Result [facility] [address] [place] [address] [phone] * HLA ANTIBODY SCREEN LUM CLASS 2 SAB (10/27/2024 2:40 PM CDT) % PRA 0 11/04/2024 4:03 PM CDT [facility] ([facility]) Class 2 LUM SAB Moderate Risk DQ6 11/04/2024 4:03 PM CDT [facility] ([facility]) Class 2 SAB Test Date [id number] 11/04/2024 4:03 PM CDT [facility] ([facility]) Comment: Methodology - Luminex Bead-Based [...] high complexity clinical laboratory testing. CLIA ID# [id number] Performed at: [facility], [address] [place] [id number] Senior Center Manager: Steven Gonzalez, Ph.D., D([facility]), Blood BLOOD SPECIMEN / Unknown No Charge Blood Draw / Unknown 10/27/2024 2:40 PM CDT 11/01/2024 2:41 PM CDT Alan Davenport MD LAB - BLOOD BANK ORDERABLES F inal Result [facility] ([facility]) [address] [place] [id number] [place] [address] * HLA ANTIBODY SCREEN LUM CLASS 1 SAB (10/27/2024 2:40 PM CDT) % PRA 0 11/04/2024 4:03 PM CDT [facility] ([facility]) Class 1 SAB Test Date [id number] 11/04/2024 4:03 PM CDT [facility] ([facility]) Comment: Methodology - Luminex Bead-Based [...] high complexity clinical laboratory testing. CLIA ID# [id number] Performed at: [facility], [address] [place] [phone] Senior Center Manager: Steven Gonzalez, Ph.D., D([facility]), Blood BLOOD SPECIMEN / Unknown No Charge Blood Draw / Unknown 10/27/2024 2:40 PM CDT 11/01/2024 2:41 PM CDT Alan Davenport MD LAB - BLOOD BANK ORDERABLES F inal Result Performing Organization Address [facility]/ZIP Co de Phone Number [facility]) [address] [place] [address] * (ABNORMAL) PTH INTACT ([facility]) (10/21/2024 1:11 PM CDT) Only the most recent of2 resultswithin the time period is included. PTH Intact 316.8(H) 8.0 - 77.0 pg/mL 10/21/2024 1:56 PM CDT [facility] Blood BLOOD SPECIMEN / Unknown Lab Venipuncture / Unknown 10/21/2024 1:11 PM CDT 10/21/2024 1:23 PM CDT Becky Wilson MD LAB - CHEMISTRY ORDERABLES Fin al Result [facility] [address] [place] [address], [facility] [phone] * LAB MISC TEST (10/21/2024 1:11 PM CDT) Test Name PHOSPHO-TAU 217 PLASMA 10/25/2024 12:29 PM CDT [facility] Test Result See Scanned Report 10/25/2024 12:29 PM CDT [facility] Comment Ref Lab [place] 10/25/2024 12:29 PM CDT [facility] Blood BLOOD SPECIMEN / Unknown Lab Venipuncture / Unknown 10/21/2024 1:11 PM CDT 10/21/2024 1:15 PM CDT Becky Wilson MD LAB SEND OUT Final Result Performing Organization Address City/[facility]/ZIP Co de Phone Number [facility] [address] [place] [address] * MAGNESIUM BLOOD (10/21/2024 1:11 PM CDT) Only the most recent of14 resultswithin the time period is included. [facility] Magnesium 1.6 1.6 - 2.6 mg/dL 10/21/2024 1:49 PM CDT [facility] Blood BLOOD SPECIMEN / Unknown Lab Venipuncture / Unknown 10/21/2024 1:11 PM CDT 10/21/2024 1:20 PM CDT Becky Wilson MD LAB - CHEMISTRY ORDERABLES Fin al Result [address] [address], [facility] [phone] * AMMONIA (10/21/2024 1:11 PM CDT) Ammonia 30 <=72 umol/L 10/21/2024 1:32 PM CDT [facility] Blood BLOOD SPECIMEN / Unknown Lab Venipuncture / Unknown 10/21/2024 1:11 PM CDT 10/21/2024 1:15 PM CDT us Becky Wilson MD LAB - CHEMISTRY ORDERABLES [facility] al Result [facility] [address] [place] [address], [facility] [phone] * CT Head Wo Contrast (10/19/2024 3:03 PM CDT) Only the most recent of4 resultswithin the time period is included. Anatomical Region Laterality Modality Head Computed Tomogra phy 10/19/2024 3:11 PM CDT Impressions 10/19/2024 3:41 PM CDT IMPRESSION: 1.No acute intracranial hemorrhage, territorial infarct, or significant mass effect. Report dictated by Saroj Linda MD, MD (radiology assistant). > Dictated by Willow Worker I, Raymundo Hanson MD have personally reviewed [...] Report dictated by Saroj Linda MD, (radiology assistant). > Dictated by Willow Worker I, Raymundo Hanson MD have personally reviewed [...] (Bezet) 509 ms [facility] MUSE Calculated P Thayne 69 degrees [facility] MUSE Calculated R Thayne -63 degrees [facility] MUSE Calculated T Thayne -90 degrees [facility] MUSE Interpretation EKG NORMAL SINUS RHYTHM LEFT ANTERIOR FASCICULAR BLOCK T WAVE ABNORMALITY, CONSIDER INFEROLATERAL ISCHEMIA PROLONGED QT ABNORMAL ECG . Confirmed by DOUG CAGLE MD ([id number]) on 10/23/2024 11:38:28 PM [facility] MUSE 10/19/2024 2:21 PM CDT 10/23/2024 11:38 PM CDT Alfreda Smith PA-C ECG ORDERABLES Edite d Result - Final Performing Organization Address City/[facility]/ZIP Co de Phone Number [facility] MUSE * (ABNORMAL) B-TYPE NATRIURETIC PEPTIDE (10/17/2024 7:33 PM CDT) Only the most recent of3 resultswithin the time period is included. BNP 471(H) <100 pg/mL 10/17/2024 10:07 PM CDT [facility] Comment: A decision threshold of 100 [...] nal Result [facility] [address] [place] [address], [place] [phone] * XR CHEST 1VW PORTABLE (10/09/2024 7:27 PM CDT) Only the most recent of2 resultswithin the time period is included. Anatomical Region Laterality Modality Chest Digital Radiogra phy 10/09/2024 10:4 9 PM CDT Narrative 10/10/2024 1:17 AM CDT PROCEDURE: XR CHEST 1VW PORTABLE, DATE/TIME OF EXAM: 10/09/2024 7:27 PM, LOCATION [facility] INDICATION: R06.02: Short of breath on exertion ADDITIONAL CLINICAL INFORMATION: Ordering Provider Reason For Exam: r/o effusion, pneumonia Technologist Note: Additional: COMPARISON: Chest x-ray from 10/07/2024. FINDINGS/IMPRESSION: There is no focal consolidation, pleural effusion, or pneumothorax.The cardiomediastinal silhouette is normal. No displaced fractures identified. Hardware projecting over thoracic spine. > Dictated by Otis Bocanegra MD (radiology assistant). > Dictated by Willow Worker I, Blake Plasencia MD have personally reviewed and interpreted this examination/study. > Interpreting Provider: Blake Plasencia MD on 10/10/2024 1:17 AM Procedure Note Blake Plasencia MD - 10/10/2024 PROCEDURE: XR CHEST 1VW PORTABLE, DATE/TIME OF EXAM: 10/09/2024 7:27PM, LOCATION [facility] INDICATION: R06.02: Short of breath on exertion ADDITIONAL CLINICAL INFORMATION: Ordering Provider Reason For Exam: r/o effusion, pneumonia Technologist Note: Additional: COMPARISON: Chest x-ray from 10/07/2024. FINDINGS/IMPRESSION: There is no focal consolidation, pleural effusion, or pneumothorax.The cardiomediastinal silhouette is normal. No displaced fracturesidentified. Hardware projecting over thoracic spine. > Dictated by Otis Bocanegra MD (radiology assistant). > Dictated by Willow Worker IBlake MD have personally reviewed and interpreted this examination/study. > Interpreting Provider: Blake Plasnecia MD on 10/10/2024 1:17 AM us Anjali Avelar ELEMENTARY ART TEACHER-WINDOWS SERVER ENGINEER DIAGNOSTIC IMAGING O RDERABLES Final Result * (ABNORMAL) BLOOD GASES ABBEY + COOX PANEL (10/09/2024 4:39 PM [facility]) Only the most recent of2 resultswithin the time period is included. pH Venous 7.41 7.32 - 7.42 pH 10/09/2024 5:04 PM [facility] pO2 Venous 34(L) 35 - 40 mmHg 10/09/2024 5:04 PM [facility] pCO2 Venous 44 40 - 50 mmHg 10/09/2024 5:04 PM [facility] HCO3 Venous 27.9 20 - 30 mmol/L 10/09/2024 5:04 PM [facility] Base Excess Venous 2.9(H) -2.0 - 2.0 mmol/L 10/09/2024 5:04 PM [facility] Oxyhemoglobin Venous 56.8 % 09/18 5:04 PM [facility] Comment:A^Absorbance Error Deoxyhemoglobin (HHB) Venous % 42.6 % 10/09/2024 5:04 PM [facility] Comment:A^Absorbance Error Methemoglobin <0.8 0.0 - 2.0 % 10/09/2024 5:04 PM [facility] Comment:A^Absorbance Error Carboxyhemoglobin 0.6 0.0 - 2.0 % 2024 5:04 PM [facility] Comment:A^Absorbance Error O2 Content Venous 7.7 Interpret within clinical context ml/dL 10/09/2024 5:04 PM [facility] Hemoglobin by COOX 9.6(L) 12.0 - 17.6 g/dL 10/09/2024 5:04 PM [facility] Comment:A^Absorbance Error O2 Saturation Venous 57(L) >=70 % 09/18 5:04 PM [facility] Comment:A^Absorbance Error FI O2 Mixed Venous 21.0 % 2024 5:04 PM [facility] Blood BLOOD SPECIMEN / Unknown Venipuncture / Unknown 10/09/2024 4:39 PM CDT 10/09/2024 4:56 PM CDT Narrative [facility] - 10/09/2024 5:04 PM CDT Carboxyhemoglobin Normal Concentration: Non-smokers: 0-2%; Smokers: 0-9%; Toxic: >20% Anjali Avelar ELEMENTARY ART TEACHER-[facility] LAB - BLOOD GASES OR DERABLES Final Result Performing Organization Address [facility]/ZIP Co de Phone Number [address] [address], [facility] [phone] * PHOSPHORUS BLOOD (10/09/2024 4:39 PM CDT) Only the most recent of8 resultswithin the time period is included. Phosphorus 4.9 2.8 - 5.1 mg/dL 10/09/2024 5:29 PM CDT [facility] Blood BLOOD SPECIMEN / Unknown Venipuncture / Unknown 10/09/2024 4:39 PM CDT 10/09/2024 4:58 PM CDT Anjali Avelar ELEMENTARY ART [facility] LAB - CHEMISTRY ORDE RABLES Final Result Performing Organization Address [facility]/ZIP Co de Phone Number [address] [address], [facility] [phone] * (ABNORMAL) URINALYSIS REFLEX MICROSCOPIC REFLEX CULTURE (10/07/2024 6:16 PM CDT) Color UA Yellow Yellow, Straw 10/07/2024 6:39 PM CDT [facility] Clarity UA Ex. Turbid(A) Clear 10/07/2024 6:39 PM CDT [facility] Glucose UA Normal Normal 10/07/2024 6:39 PM CDT [facility] Bilirubin UA Negative Negative 10/07/2024 6:39 PM CDT [facility] Ketone UA Negative Negative 10/07/2024 6:39 PM CDT [facility] Specific Twining UA 1.015 1.005 - 1.030 10/07/2024 6:39 PM CDT [facility] Blood UA 3+(A) Negative 10/07/2024 6:39 PM [facility] pH UA 6.0 5.0 - 8.0 10/07/2024 6:39 PM [facility] Protein UA 2+(A) Negative 10/07/2024 6:39 PM [facility] Urobilinogen UA Normal Normal mg/dL 10/07/2024 6:39 PM [facility] Nitrite UA Negative Negative 10/07/2024 6:39 PM [facility] Leukocyte Esterase UA 500 MOLLY/uL(A) Negative 10/07/2024 6:39 PM [facility] RBC UA 51-100(A) 0 - 5 # /hpf 10/07/2024 6:39 PM [facility] WBC UA >100(A) 0 - 5 # /hpf 10/07/2024 6:39 PM [facility] Bacteria UA 2+(A) None Seen 10/07/2024 6:39 PM [facility] Squamous Epithelial Cells None Seen 0 - 5 /hpf 10/07/2024 6:39 PM [facility] Transitional Epithelial Cell UA 0-2(A) None Seen /HPF 10/07/2024 6:39 PM [facility] Budding Yeast Moderate(A) None seen /hpf 10/07/2024 6:39 PM [facility] Reflex Status Culture to follow 10/07/2024 6:39 PM [facility] Urine URINE SPECIMEN OBTAINED VIA INDWELLING URINARY CATHETER / Unknown Collection / Unknown 10/07/2024 6:16 PM CDT 10/07/2024 6:19 PM CDT [facility] - 10/07/2024 6:39 PM CDT us Richard Sylvester MD LAB - URINALYSIS ORDERABLES Kenna l Result [facility] [address] [place] [address], [facility] [phone] * (ABNORMAL) CULTURE URINE (10/07/2024 6:16 PM CDT) Culture Urine 50,000-100,000 CFU/mL Klebsiella pneumoniae(A) MUSHTAQ 10/09/2024 5:[address] [facility] MICROBIOLOGY Urine URINE SPECIMEN OBTAINED VIA INDWELLING URINARY CATHETER / Unknown Collection / Unknown 10/07/2024 6:16 PM CDT 10/07/2024 6:[address] [facility] MICROBIOLOGY - 10/09/2024 5:54 AM CDT [...] LAB - MICROBIOLOGY ORDERABLES Fi nal Result [facility] MICROBIOLOGY [address] [place] [address], [facility] [phone] * VAS Arterial Multilevel Le (10/05/2024 12:24 PM CDT) Anatomical Region Laterality Modality Intravascular Ul trasound 10/05/2024 11:3 4 AM CDT Narrative Procedure Note Elroy Holcomb MD - 10/05/2024 us Guy Messina MD VASCULAR LAB ORDERABLES Edit ed Result - Final * (ABNORMAL) HEMOGLOBIN A1C (09/25/2024 5:06 AM CDT) Hemoglobin A1c 5.8(H) <=5.6 % 09/25/2024 8:19 AM CDT [facility] Estimated Average Glucose 120 mg/dL 09/25/2024 8:19 AM CDT [facility] Comment: HbA1c Interpretation: Normal : < 5.7% Pre-diabetes: 5.7-6.4% Diabetes: Equal to or greater than 6.5% Test results diagnostic of diabetes should be repeated for confirmation. Treatment target values recommended by ADA and other clinical organizations should be used to evaluate metabolic control in patients. Reference: [place] Diabetes Association, Standards of Care in Diabetes [...] LAB - CHEMISTRY ORDERABLES F inal Result [facility] [address] [place] [address], [place] [phone] * (ABNORMAL) RENAL FUNCTION PANEL (09/24/2024 7:53 PM CDT) Only the most recent of3 resultswithin the time period is included. BUN 42(H) 7 - 26 mg/dL 09/24/2024 8:47 PM [facility] Creatinine 12.22(H) 0.71 - 1.16 mg/dL 09/24/2024 8:47 PM [facility] Sodium 136 136 - 145 mmol/L 09/24/2024 8:47 PM [facility] Potassium 3.9 3.5 - 4.5 mmol/L 09/24/2024 8:47 PM [facility] Chloride 97(L) 98 - 107 mmol/L 09/24/2024 8:47 PM [facility] CO2 24 22 - 29 mmol/L 09/24/2024 8:47 PM [facility] Glucose 93 70 - 99 mg/dL 09/24/2024 8:47 PM [facility] Albumin 1.8(L) 3.4 - 5.0 g/dL 09/24/2024 8:47 PM [facility] Calcium 8.4 8.4 - 10.2 mg/dL 09/24/2024 8:47 PM [facility] Phosphorus 7.0(H) 2.8 - 5.1 mg/dL 09/24/2024 8:47 PM [facility] Anion Gap 15 6 - 16 09/24/2024 8:47 PM [facility] BUN/Creatinine Ratio 3(L) 7 - 23 09/24/2024 8:47 PM [facility] Osmolality Calculated 292 275 - 295 mOsm/kg 09/24/2024 8:47 PM [facility] eGFR by CKD-EPI 4(L) >=90 mL/min/1.7 3 m2 09/24/2024 8:47 PM [facility] Comment:Estimated Glomerular Filtration Rate (eGFR) calculated using the CKD-EPI Creatinine Equation (2020), per the National Kidney Foundation and [place] Society of Nephrology recommendations. Blood BLOOD SPECIMEN / Unknown Lab Venipuncture / Unknown 09/24/2024 7:53 PM CDT 09/24/2024 8:15 PM T us Guy Messina MD LAB - CHEMISTRY ORDERABLES F inal Result [address] [address], [facility] [phone] * TSH REFLEX FREE T4 (09/24/2024 12:02 PM CDT) Pathologist [facility] TSH 1.567 0.350 - 4.940 uIU/mL 09/24/2024 12:57 PM CDT [facility] Blood BLOOD SPECIMEN / Unknown 09/24/2024 12:02 PM CDT 09/24/2024 12:18 PM CDT Alexis Rodrigez III, MD LAB - CHEMISTRY ORDERAB LES Final Result Performing Organization Address [facility] Co de Phone Number [address] [address], [facility] [phone] * (ABNORMAL) VITAMIN B1 (09/24/2024 12:02 PM CDT) Pathologist [facility] Vitamin B1 Whole Blood 205(H) 70 - 180 nmol/L 09/27/2024 7:16 PM CDT [facility] ([facility]) Comment: INTERPRETIVE INFORMATION: Vitamin B1, Whole Blood This assay measures the concentration of thiamine diphosphate (TDP), the primary active form of vitamin B1. Approximately 90 percent of vitamin B1 present in whole blood is TDP. Thiamine and thiamine monophosphate, which comprise the remaining 10 percent, are not measured. This test was developed and its performance characteristics determined by [facility]. It has not been cleared or approved by the [place] Food and Drug Administration. This test was performed in a CLIA certified laboratory and is intended for clinical purposes. Performed By: [facility] [address] [place] [id number] [employer] Control Man: Mk Egan MD, PhD CLIA Number: [id number] Blood BLOOD SPECIMEN / Unknown 09/24/2024 12:02 PM CDT 09/24/2024 12:11 PM CDT us Alexis Rodrigez III, MD LAB - CHEMISTRY ORDERAB LES Final Result Performing Organization Address City/[facility] Co de Phone Number [facility]) [address] [place] [phone], [facility] * (ABNORMAL) VITAMIN B12 (09/24/2024 12:02 PM CDT) Vitamin B12 1,151(H) 213 - 816 pg/mL 09/24/2024 12:57 PM CDT [facility] Blood BLOOD SPECIMEN / Unknown 09/24/2024 12:02 PM CDT 09/24/2024 12:18 PM CDT us Alexis Rodrigez III, MD LAB - CHEMISTRY ORDERAB LES Final Result [address] [address], [facility] [phone] * (ABNORMAL) TROPONIN-I HIGH SENSITIVE (09/24/2024 5:08 AM CDT) Pathologist [facility] Troponin I High Sensitive 83(H) <=35 ng/L 09/24/2024 6:10 AM CDT [facility] Blood BLOOD SPECIMEN / Unknown Lab Venipuncture / Unknown 09/24/2024 5:08 AM CDT 09/24/2024 5:28 AM CDT us Jennifer Winn MD LAB - CHEMISTRY ORDERABLES F inal Result Performing Organization Address [facility]/ZIP Co de Phone Number [address] [address], [place] [phone] * CT Lumbar Spine Wo Contrast (09/23/2024 [...] Report dictated by Branden Jha MD (radiology assistant) 09/23/2024 5:45 PM. > Dictated by Willow Worker I, Jana Clark MD have personally reviewed and interpreted this examination/study. > Interpreting Provider: Jana Clark MD on 09/23/2024 6:29 PM Narrative 09/23/2024 6:29 PM CDT PROCEDURE: CT HEAD WO CONTRAST, CT LUMBAR SPINE WO CONTRAST, CT THORACIC SPINE WO CONTRAST, CT CERVICAL SPINE WO CONTRAST, DATE/TIME OF EXAM: 09/23/2024 5:32 PM, LOCATION [facility] INDICATION: W19.XXXA: Fall, initial encounter R41.82: Altered mental status, unspecified altered mental status type ADDITIONAL CLINICAL INFORMATION: Ordering Provider Reason For Exam: r/o bleed, fx (accession [id number]), r/o fx (accession [id number]), r/o fx (accession [id number]), r/o fx (accession [id number]) Technologist Note: None. Additional: 69 year old [...] DATE/TIME OF EXAM: 09/23/2024 5:32 PM, LOCATION [facility] INDICATION: W19.XXXA: Fall, initial encounter R41.82: Altered mental status, unspecified altered mental status type ADDITIONAL CLINICAL INFORMATION: Ordering Provider Reason For Exam: r/o bleed, fx (accession [id number]), r/o fx (accession [id number]), r/o fx (accession [id number]), r/o fx (accession [id number]) Technologist Note: None. Additional: 69 year old [...] Report dictated by Branden Jha MD (radiology assistant) 09/23/2024 5:45 PM. > Dictated by Willow Worker I, Jana Clark MD have personally reviewed [...] Report dictated by Branden Jha MD (radiology assistant) 09/23/2024 5:45 PM. > Dictated by Willow Worker I, Jana Clark MD have personally reviewed and interpreted this examination/study. > Interpreting Provider: Jana Clark MD on 09/23/2024 6:29 PM Narrative 09/23/2024 6:29 PM CDT PROCEDURE: CT HEAD WO CONTRAST, CT LUMBAR SPINE WO CONTRAST, CT THORACIC SPINE WO CONTRAST, CT CERVICAL SPINE WO CONTRAST, DATE/TIME OF EXAM: 09/23/2024 5:32 PM, LOCATION [facility] INDICATION: W19.XXXA: Fall, initial encounter R41.82: Altered mental status, unspecified altered mental status type ADDITIONAL CLINICAL INFORMATION: Ordering Provider Reason For Exam: r/o bleed, fx (accession [id number]), r/o fx (accession [id number]), r/o fx (accession [id number]), r/o fx (accession [id number]) Technologist Note: None. Additional: 69 year old [...] DATE/TIME OF EXAM: 09/23/2024 5:32 PM, LOCATION [facility] INDICATION: W19.XXXA: Fall, initial encounter R41.82: Altered mental status, unspecified altered mental status type ADDITIONAL CLINICAL INFORMATION: Ordering Provider Reason For Exam: r/o bleed, fx (accession [id number]), r/o fx (accession [id number]), r/o fx (accession [id number]), r/o fx (accession [id number]) Technologist Note: None. Additional: 69 year old [...] Report dictated by Branden Jha MD (radiology assistant) 09/23/2024 5:45 PM. > Dictated by Willow Worker I, Jana Clark MD have personally reviewed [...] Report dictated by Branden Jha MD (radiology assistant) 09/23/2024 5:45 PM. > Dictated by Willow Worker I, Jana Clark MD have personally reviewed and interpreted this examination/study. > Interpreting Provider: Jana Clark MD on 09/23/2024 6:29 PM Narrative 09/23/2024 6:29 PM CDT PROCEDURE: CT HEAD WO CONTRAST, CT LUMBAR SPINE WO CONTRAST, CT THORACIC SPINE WO CONTRAST, CT CERVICAL SPINE WO CONTRAST, DATE/TIME OF EXAM: 09/23/2024 5:32 PM, LOCATION [facility] INDICATION: W19.XXXA: Fall, initial encounter R41.82: Altered mental status, unspecified altered mental status type ADDITIONAL CLINICAL INFORMATION: Ordering Provider Reason For Exam: r/o bleed, fx (accession [id number]), r/o fx (accession [id number]), r/o fx (accession [id number]), r/o fx (accession [id number]) Technologist Note: None. Additional: 69 year old [...] DATE/TIME OF EXAM: 09/23/2024 5:32 PM, LOCATION [facility] INDICATION: W19.XXXA: Fall, initial encounter R41.82: Altered mental status, unspecified altered mental status type ADDITIONAL CLINICAL INFORMATION: Ordering Provider Reason For Exam: r/o bleed, fx (accession [id number]), r/o fx (accession [id number]), r/o fx (accession [id number]), r/o fx (accession [id number]) Technologist Note: None. Additional: 69 year old [...] Report dictated by Branden Jha MD (radiology assistant) 09/23/2024 5:45 PM. > Dictated by Willow Worker I, Jana Clark MD have personally reviewed [...] Report dictated by Branden Jha MD, (radiology assistant). > Dictated by Willow Worker I, Nicole Bernabe MD have personally reviewed and interpreted this examination/study. > Interpreting Provider: Nicole Bernabe MD on 09/24/2024 9:17 AM Narrative 09/24/2024 9:17 AM CDT PROCEDURE: XR FOOT LEFT 3VW OR MORE, DATE/TIME OF EXAM: 09/23/2024 5:34 PM, LOCATION [facility] INDICATION: W19.XXXA: Fall, initial [...] MORE, DATE/TIME OF EXAM: 09/23/2024 5:34PM, LOCATION [facility] INDICATION: W19.XXXA: Fall, initial [...] Report dictated by Branden Jha MD, (radiology assistant). > Dictated by Willow Worker I, Nicole Bernabe MD have personally reviewed [...] LAB - CHEMISTRY ORDERABLES Kenna l Result [facility] [address] [place] [address], [place] [phone] * (ABNORMAL) ERYTHROCYTE SEDIMENTATION RATE (09/23/2024 4:52 PM CDT) Only the most recent of2 resultswithin the time period is included. [facility] Erythrocyte Sedimentation Rate Westergren 116(H) 0 - 20 MM/HR 09/23/2024 5:21 PM CDT [facility] Blood BLOOD SPECIMEN / Unknown Venipuncture / Unknown 09/23/2024 4:52 PM CDT 09/23/2024 5:05 PM CDT us Moon Lewis PA-C LAB - HEMATOLOGY ORDERABLES Fin al Result [facility] [address] [place] [address], [place] [phone] * (ABNORMAL) DIFFERENTIAL MANUAL (09/23/2024 4:52 PM CDT) Only the most recent of3 resultswithin the time period is included. [facility] Neutrophil % 78(H) 41 - 74 % 09/23/2024 5:33 PM [facility] Lymphocyte % 10(L) 17 - 47 % 09/23/2024 5:33 PM [facility] Monocyte % 10 3 - 11 % 09/23/2024 5:33 PM [facility] Eosinophil % 1 0 - 7 % 09/23/2024 5:33 PM [facility] Metamyelocyte % 1(H) 0% % 5:33 PM [facility] Neutrophil Absolute 8.66(H) 1.60 - 7.50 x10E9/L 09/23/2024 5:33 PM [facility] Lymphocyte Absolute 1.11 1.00 - 4.40 x10E9/L 09/23/2024 5:33 PM [facility] Monocyte Absolute 1.11(H) 0.15 - 1.00 x10E9/L 09/23/2024 5:33 PM [facility] Eosinophil Absolute 0.11 0.00 - 0.60 x10E9/L 09/23/2024 5:33 PM [facility] RBC Morphology REVIEWED 09/23/2024 5:33 PM [facility] Microcytosis MODERATE(A) (none) 09/23/2024 5:33 PM [facility] Blood BLOOD SPECIMEN / Unknown Venipuncture / Unknown 09/23/2024 4:52 PM CDT 09/23/2024 5:05 PM CDT us Moon Lewis PA-C LAB - HEMATOLOGY ORDERABLES Fin al Result [facility] [address] [place] [address], [facility] [phone] * (ABNORMAL) CBC W/O DIFFERENTIAL (09/16/2024 1:01 AM CDT) Only the most recent of10 resultswithin the time period is included. WBC 9.3 4.0 - 10.7 x10E9/L 09/16/2024 1:43 AM [facility] RBC Count 3.37(L) 4.30 - 5.80 x10E12/L 09/16/2024 1:43 AM [facility] Hemoglobin 9.5(L) 13.3 - 17.5 g/dL 09/16/2024 1:43 AM [facility] Hematocrit 28.3(L) 38.7 - 51.1 % 09/16/2024 1:43 AM [facility] MCV 84.0 80.0 - 98.0 fL 09/16/2024 1:43 AM [facility] MCH 28.2 26.7 - 33.6 pg 09/16/2024 1:43 AM [facility] MCHC 33.6 31.7 - 36.3 g/dL 09/16/2024 1:43 AM [facility] RDW-CV 15.7(H) 11.3 - 14.8 % 09/16/2024 1:43 AM [facility] Platelet Count 205 150 - 420 x10E9/L 09/16/2024 1:43 AM CDT [facility] MPV 10.3 7.8 - 11.4 fL 09/16/2024 1:43 AM CDT [facility] Blood BLOOD SPECIMEN / Unknown Lab Venipuncture / Unknown 09/16/2024 1:01 AM CDT 09/16/2024 1:40 AM CDT us Alexis Rodrigez III, MD LAB - HEMATOLOGY ORDERA BLES Final Result Performing Organization Address City/[facility]/ZIP Co de Phone Number [address] [address], [place] [phone] * VANCOMYCIN LEVEL RANDOM (09/15/2024 4:10 PM CDT) Only the most recent of3 resultswithin the time period is included. Vancomycin Random 31.2 Therapeutic Ranges not established for random specimens ug/mL 09/15/2024 6:00 PM CDT [facility] [facility] Blood BLOOD SPECIMEN / Unknown Lab Venipuncture / Unknown 09/15/2024 4:10 PM CDT 09/15/2024 4:51 PM CDT Narrative [facility] - 09/15/2024 6:00 PM CDT See institution protocol. us Aureliano Pierce MD LAB - CHEMISTRY ORDERAB LES Final Result Performing Organization Address [facility]/ZIP Co de Phone Number [address] [address], [place] [phone] * LACTIC ACID BLOOD (09/14/2024 3:32 PM [...] ORDERAB LES Final Result Performing Organization Address City/[facility]/ZIP Co de Phone Number [address] [address], [facility] [phone] * (ABNORMAL) HGB HCT PANEL (09/14/2024 1:24 [...] ORDERA BLES Final Result Performing Organization Address City/[facility]/ZIP Co de Phone Number [address] [address], [facility] [phone] * PATHOLOGY TISSUE (09/14/2024 11:45 AM CDT) Case Report Surgical Pathology Report Case: [id number] Authorizing Provider: Elroy Holcomb MD Collected: 09/14/2024 11:45 AM Ordering Location: [facility] IRTO OP Received: 09/14/2024 12:47 PM Pathologist: Charmaine Myrick MD Specimen: Toe, Left, Left Great Toe 09/16/2024 11:40 AM CDT [facility] PATHOLOGY LAB Final Diagnosis Toe, left great, amputation (A): - Skin ulceration and necrosis - Acute osteomyelitis - Bone margin negative for acute inflammation - Skin and soft tissue margin appears viable 09/16/2024 11:40 AM CDT [facility] PATHOLOGY LAB at 1140 CDT Microscopic Description and Comment Microscopic examination substantiates the diagnosis. 09/16/2024 11:40 AM CDT [facility] PATHOLOGY LAB Clinical History The patient is a 69-year-old man with first toe dry gangrene and history of PAD. 09/16/2024 11:40 AM [facility] PATHOLOGY LAB Gross Description The requisition and [...] hemorrhage. There are no additional gross lesions. Side Stitcher sections are submitted as follows: A1-skin and soft tissue to resection margin, medial and dorsal surfaces A2-bony resection margin, decalcified A3-partial proximal cross-section with surrounding mummification, decalcified IKD 09/16/2024 11:40 AM [facility] PATHOLOGY LAB Pathologist Location at [facility] 09/16/2024 11:40 AM [facility] PATHOLOGY LAB Disclaimer The performance characteristics of all immunohistochemical and indirect immunofluorescence stains (if any) cited in this report were determined by the Histopathology Laboratory of [facility]. Some of these tests were [...] 11:40 AM [facility] PATHOLOGY LAB Embedded Images 09/16/2024 11:40 AM [facility] PATHOLOGY LAB Amputation, Traumatic (Gross Only) (Toe, Left) 09/14/2024 11:45 AM CDT 09/14/2024 12:47 PM CDT Comment:Pre-op diagnosis: Toe gangrene (HCC) [I96] us Elroy Holcomb MD LAB - PATHOLOGY/CYTOLOGY O RDERABLES Final Result [facility] PATHOLOGY LAB [address] [place] [address], [facility] [phone] * Peripheral Nerve Block (09/14/2024 10:38 AM [...] isolated MUSHTAQ 10/11/2024 8:[address] [facility] MICROBIOLOGY Fungus Stain No yeast or hyphae seen 10/11/2024 8:[address] [facility] MICROBIOLOGY Microbiology PERITONEAL DIALYSATE SPECIMEN / Unknown Collection / Unknown 09/13/2024 8:08 PM CDT 09/13/2024 8:10 PM CDT us Alexis Rodrigez III, MD LAB - MICROBIOLOGY ORDE RABLES Final Result [facility] MICROBIOLOGY [address] [place] [address], [facility] [phone] * DIFFERENTIAL MANUAL FLUID (09/13/2024 8:08 PM CDT) Fluid Source Peritoneal 09/13/2024 9:03 PM CDT [facility] Body Fluid Total Cell Count 100 x10E6/L 09/13/2024 9:03 PM CDT [facility] Neutrophils Fluid Percent 11 % 09/13/2024 [...] BLES Final Result [facility] [address] [place] [address], [facility] [phone] * CULTURE FLUID+GRAM STAIN (09/13/2024 8:08 PM CDT) Culture No growth MUSHTAQ 09/17/2024 12:[address] [facility] MICROBIOLOGY Gram Stain Light Polymorphonuclear cells 09/17/2024 12:[address] [facility] MICROBIOLOG[facility] Gram Stain No organisms seen 025 12:[address] [facility] MICROBIOLOGY Other PERITONEAL DIALYSATE SPECIMEN / Unknown Collection / Unknown 09/13/2024 8:08 PM CDT 09/13/2024 8:10 PM CDT Alexis Rodrigez III, MD LAB - MICROBIOLOGY PK ZENG Final Result Performing Organization Address City/[facility]/ZIP Co de Phone Number [facility] MICROBIOLOGY [address] [place] [address], [facility] [phone] * CULTURE ANAEROBE (09/13/2024 8:08 PM CDT) Culture No anaerobic organisms isolated MUSHTAQ 09/19/2024 8:[address] [facility] MICROBIOLOGY Microbiology PERITONEAL DIALYSATE SPECIMEN / Unknown Collection / Unknown 09/13/2024 8:08 PM CDT 09/13/2024 8:11 PM CDT Alexis Rodrigez III, MD LAB - MICROBIOLOGY PK ZENG Final Result [facility] MICROBIOLOGY [address] [place] [address], [facility] [phone] * CELL COUNT W DIFFERENTIAL FLUID (09/13/2024 8:08 PM CDT) Fluid Source Peritoneal 09/13/2024 9:03 PM CDT [facility]OS[facility] Fluid Appearance CLEAR 09/13/2024 9:03 PM CDT [facility] Fluid Color YELLOW 09/13/2024 9:03 PM CDT [facility] Total Nucleated Cells Fluid [...] Result [facility] [address] [place] [address], [facility] [phone] * VAS Bilateral Venous Duplex Le (09/13/2024 4:34 PM CDT) Anatomical Region Laterality Modality Lower Extremity Ultrasound 09/13/2024 4:18 PM CDT Narrative Procedure Note Lalit Castanon MD - 09/13/2024 us Alexis Rodrigez III, MD VASCULAR LAB ORDERABLES Edited Result - Final * SARS-COV-2 (COVID-19) RAPID (09/13/2024 6:02 AM CDT) COVID-19 PCR Not detected Not detected 09/14/19 25 6:36 AM CDT [facility] LAB - MICROBIOLOGY ORDERABLE S Final Result [address] [address], [facility] [phone] * TRANSFUSE RED BLOOD CELL LEUKOREDUCED UNIT(S) [...] Dictated by Sera Chowdhury Dr, MD (radiology assistant). ITerry MD have personally reviewed and interpreted this examination/study. > Interpreting Provider: Terry Ramos MD on 09/13/2024 9:42 AM Narrative 09/13/2024 9:42 AM CDT PROCEDURE: CT ANGIO AORTA FOR DISSECTION, DATE/TIME OF EXAM: 09/13/2024 12:28 AM, LOCATION [facility] INDICATION: R10.9: Abdominal pain, [...] DATE/TIME OF EXAM: 09/13/2024 12:28 AM, LOCATION [facility] INDICATION: R10.9: Abdominal pain, [...] Dictated by Sera Chowdhury Dr, MD (radiology assistant). I, Lien. Constantino Ramos MD have personally reviewed and interpreted this examination/study. > Interpreting Provider: Terry Ramos MD on 09/13/2024 9:42 AM Y[address]y Lopez MD CT ORDERABLES Final Result * PREPARE (CROSSMATCH) RBC UNIT(S), 1 Units (09/12/2024 11:30 PM CDT) Unit Description AS1 LR PRBC [facility] BLOOD BANK LAB Unit ABO O [facility] BLOOD [facility] Unit Rh NEG [facility] BLOOD [facility] LAB Product Number R43 [facility] B LOOD [facility]ANK LAB Unit Donor # [id number] [facility] BLOOD [facility] Unit Status transfused [facility] BLO OD [facility]ANK LAB Product Code [id number] [facility] BLO OD BANK LAB Blood Type Barcode 9500 [facility] BLOOD [facility]ANK LAB Expiration Date [facility] BLOOD BANK LAB Blood Bank BLOOD SPECIMEN / Unknown 09/12/2024 11:30 PM CDT 09/12/2024 11:37 PM CDT Result [facility] Yuriy Lopez MD LAB - BLOOD BANK ORDERABLES Final Result Performing Organization Address City/[facility]/ZIP Co de Phone Number [facility] BLOOD BANK LAB [address] [place] [address], [facility] [phone] * TYPE + SCREEN PANEL (09/12/2024 11:30 PM CDT) Antibody Screen NEG 12:16 AM CDT [facility] BLOOD BANK LAB ABO Rh O NEG 09/13/2024 12:16 AM CDT [facility] BLOOD BANK LAB Blood Bank BLOOD SPECIMEN / Unknown Venipuncture / Unknown 09/12/2024 11:30 PM CDT 09/12/2024 11:37 PM CDT Yuriy Lopez MD LAB - BLOOD BANK ORDERABLES Final Result [facility] BLOOD BANK LAB [address] [place] [address], [facility] [phone] * CULTURE BLOOD (09/12/2024 10:00 PM CDT) Only the most recent of4 resultswithin the time period is included. Culture No growth day 5 MUSHTAQ 09/18/2024 1:[address] [facility] MICROBIOLOGY Blood PERIPHERAL BLOOD / Unknown Venipuncture / Unknown 09/12/2024 10:00 PM CDT 09/12/2024 10:21 PM CDT Yuriy Lopez MD LAB - MICROBIOLOGY ORDERABLE S Final Result [facility] MICROBIOLOGY [address] [place] [address], [facility] [phone] * VAS Bilateral Venous Mapping (09/07/2024 2:24 [...] thickening. Report dictated by Freddie Durham MD, (Willow Worker). I, Junior Hurley MD have personally reviewed [...] thickening. Report dictated by Freddie Durham MD, (Willow Worker). I, Junior Hurley MD have personally reviewed [...] 3:57 PM CDT us Jaqueline Correa Mars ELEMENTARY ART TEACHER-WINDOWS SERVER ENGINEER LAB - CHEMISTRY ORDERABL ES Final Result [facility] [address] [place] [address], [facility] [phone] * CCL STAGED PERC CORONARY INTERVENTION, CCL [...] continuing DAPT Cardiology clinic f/u Jaqueline Crews ELEMENTARY ART TEACHER-WINDOWS SERVER ENGINEER CV CARDIAC CATH CUPID [facility] Final Result * (ABNORMAL) IRON + TRANSFERRIN PANEL (08/19/2024 1:41 AM CDT) Pathologist [facility] Iron 40(L) 50 - 175 ug/dL 08/19/2024 2:17 AM CDT [facility] Transferrin 116(L) 174 - 382 mg/dL 08/19/2024 2:17 AM CDT [facility] Transferrin Saturation % 28 16 - 50 % 08/19/2024 2:17 AM CDT [facility] TIBC Calculated 145(L) 240 - 450 ug/dL 08/19/2024 2:17 AM CDT [facility] Blood BLOOD SPECIMEN / Unknown Lab Venipuncture / Unknown 08/19/2024 1:41 AM CDT 08/19/2024 2:01 AM CDT Hannah Goodman MD LAB - CHEMISTRY ORDERABLES F inal Result Performing Organization Address City/[facility]/ZIP Co de Phone Number [address] [address], [place] [phone] * (ABNORMAL) FERRITIN (08/19/2024 1:41 AM CDT) Ferritin 560(H) 22 - 275 ng/mL 08/19/2024 2:35 AM CDT [facility] Blood BLOOD SPECIMEN / Unknown Lab Venipuncture / Unknown 08/19/2024 1:41 AM CDT 08/19/2024 2:01 AM CDT Hannah Goodman MD LAB - CHEMISTRY ORDERABLES F inal Result Performing Organization Address [facility] Co de Phone Number [address] [address], [place] [phone] * VITAMIN D 25-HYDROXY (08/19/2024 1:23 AM [...] ORDERABLES F inal Result Performing Organization Address City/[facility]/ZIP Co de Phone Number [address] [address], [place] [phone] * CCL PERIPHERAL ANGIOGRAM (08/18/2024 2:33 PM CDT) Anatomical Region Laterality Modality X-Ray Angiograph y Narrative 08/19/2024 2:24 PM CDT Left leg angiogram showed left AT severe diffuse disease with multiple subtotal occlusion and left PT severe diffuse disease with DRAFTING INSTRUCTOR of distal PT without clear reconstitution. Successful [...] 0.018 CXI microcatheter with multiple wires(Command 18/command 14/Educational Interpreter 200) to get to great toe branch of dorsalis pedis using oversize load pilot escort [address]. - the AT-DP lesion was dilated with balloons mentioned in figure. - We turn our attention to PT. We crossed the PT DRAFTING INSTRUCTOR with 0.018 CXI microcatheter with multiple wires (command 18, command 14, Educational Interpreter 200) and able to go to lateral [...] using angiography. Left Posterior Tibial: Ost L INSTRUCTOR OF NURSING to Dist L INSTRUCTOR OF NURSING lesion is 100% stenosed. Stenosis was measured [...] 10% residual stenosis post intervention. Ost L INSTRUCTOR OF NURSING to Dist L INSTRUCTOR OF NURSING lesion: Angioplasty: Angioplasty independent of stent deployment [...] of Plavix. -recommend close follow up with scalp specialist and follow up with me in clinic with JOSIANE/TBI. Hannah Goodman MD CV INVASIVE VASCULAR AND IR CUPID PROC Final Result * ACT LR - POCT ([facility]) (08/18/2024 2:08 PM CDT) Only the most recent of4 resultswithin the time period is included. [facility] ACT LR 231 See result comments sec 08/19/2024 9:02 AM CDT [facility] Blood BLOOD SPECIMEN / Unknown 08/18/2024 2:08 PM CDT 08/19/2024 9:02 AM CDT Narrative [facility] - 08/19/2024 9:02 AM CDT ACT-LR [employer]rapeutics ranges are: Cardiac photo lab manager = 200-300 seconds Sheath pull = ACT [...] MD LAB - COAGULATION ORDERABLES Final Result [facility] [address] [place] [address], [place] [phone] * HEPATITIS C ANTIBODY (06/16/2024 4:15 PM CDT) [facility] Hepatitis C Antibody Non-react sylvie [...] Alan Davenport MD LAB - CHEMISTRY ORDERABLES [facility] Result [facility] [address] [place] [address], [facility] [phone] from Last 3 Months or Most Recently Relevant to Health Maintenance Insurance [employer]ET[employer] AETNA MEDICARE [facility] AETNA MEDICARE ADV * Guarantor: GRACE INTERIANO Account Type Relation to Patient Date of Phone Billing Address Personal/Family [facility] [place] [address] * Guarantor: GRACE INTERIANO Account Type Relation to Patient Date of Phone Billing Address Personal/Family [facility] [place] [address] [facility] [place] [address] * Guarantor: GRACE INTERIANO Account Type Relation to Patient Date of Phone Billing Address Personal/Family Spouse [facility] [place] [address] Advance Directives * Full Code (Latest Code [...] 3:16 PM 08/19/2024 4:36 PM Care Teams Waste Disposal Attendant Relationship Specialty Start Date End Date Jeff Strickland MD [address] [place] [address] PCP - General 03/05/18 [place] [id number] [address] Orthopedic Surgery 03/28/17
--- OUTSIDE RECORDS SUMMARY | 2024-11-18 14:46 | XMS_ITS ---
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 Name Role Phone Jeff Strickland MD Primary Care Provider Chan Nicholas MD Unavailable [phone] Alan Mccall MD Unavailable [phone] Pepito Haro MD PhD Unavailable [phone] Solange Guido MD Unavailable [phone] Active Problems Problem Noted Date Diagnosed Date [...] damage Assessment & Plan (03/09/2024 6:25 PM NURSE PLASTICS): Vision OD trends mild improvement, though still [...] 03/26/2021 Assessment & Plan (03/26/2021 1:17 PM NURSE PLASTICS): Enlarged mild sella turcica on a routine [...] units Assessment & Plan (03/26/2021 1:17 PM NURSE PLASTICS): Chronic, uncontrolled, improving A1c today 7.7 % [...] WNL Assessment & Plan (03/26/2021 1:16 PM NURSE PLASTICS): Pt currently on Levothyroxine 112 mcg oral [...] 11/18/2018 Assessment & Plan (01/21/2019 2:02 PM NURSE PLASTICS): Symptomatic. Will request for esophageal manometry. Continue [...] well Assessment & Plan (03/26/2021 1:16 PM NURSE PLASTICS): On statin therapy Tolerating well Last lipid [...] nephrectomy. 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 [id number] Current Treatment and Therapy Plans No current [...] not included. Kendall Carl 1955 Referring Supervisor Tan Room: Alan Mccall Dialysis Info: NOD GFR 13 Type: Time: (Not currently on dialysis) days Blood Type: O NEG Body mass index is 37.36 kg/m . ALERTS Riddler Operator: needs to establish Past Medical History: Diagnosis Date Arthropathy RA. Dr Strickland manages. CHF (congestive heart failure) 2 yrs ago Human Resource Professional is Dr. Becerra in [place]. CKD (chronic kidney disease), stage V Community acquired pneumonia 2018 [facility] hospitalized. Diabetes mellitus 20 years. Lantus pen. Esophageal reflux takes med Hypercholesteremia 5-10 yrs meds Hypertension takes meds Hypothyroidism meds 20 years Kidney stones 5-6 years ago had 2 in the same year. Malignancy right kidney 2012 Obstructive sleep apnea 3 years. [facility]. Cannont remember doctors name Renal cell [...] support system and appropriate discharge plan. 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 Patient appears to be a reasonable candidate for transplant from a psychosocial perspective. -Post transplant arrangement forms are needed prior to being listed. -Updated toxicology results needed, per protocol Psychiatric Consult Recommended: No Transplant Underwriting Support Manager: Joy Tam LCSW RD: 11/09/2019 BMI= [...] 11/18/201803/25 Assessment & Plan (01/21/2019 2:02 PM NURSE PLASTICS): The pain is persistent. The patient described [...] has had extensive cardiac workup by the embroiderer hand including coronary angiogram. He has chest pain [...]
--- OUTSIDE RECORDS SUMMARY | 2024-11-18 14:46 | XMS_ITS | Encounter Summary ---
Author Organization [facility] Address [facility] [place] [address] Care Team Providers Care Switchboard Troubleshooter Name Role Phone Deandre Bojorquez MD Unavailable [phone] Jeff Strickland MD Primary Care Provider [phone] Encounter Details Date Type Department Care Team (Late st Contact Info) Description 07/31/2023 Lab Requisition [facility] [address] [place] [phone] Alan Davenport MD [facility] [place] [address] Social History Tobacco Use Types Packs/Day Years Used Date Smoking Tobacco: Never Smokeless Tobacco: Never Alcohol Use Standard Drinks/Week Comments Not Currently 0 (1 standard drink = 0.6 oz pur e alcohol) socially in past Sex and Gender Information Value Date Recorded Sex Assigned at Male 07/02/2021 2:37 PM CDT Legal Sex Male 10:14 PM FINANCIAL REPORT SERVICE SALES AGENT Gender Identity Male 07/02/2021 [...] 10:00 AM CDT Appointment H IVR [address] [place] [address] Elroy Holcomb MD [address] [place] [address] [address] [place] [address] 11/24/2024 9:05 AM CDT Hospital Encounter [facility] [address] [place] [address] Elroy Holcomb MD [address] [place] [address] [address] [place] [address] Surgery General 11/24/2024 9:05 AM CDT - 11/24/2024 11:20 AM CDT Surgery [facility] [address] [place] [address] Elroy Holcomb MD [address] [place] [address] [address] [place] [address] Bilateral first toe debridement 12/06/2024 10:40 AM CDT Office Visit [facility] - Endocrinology [address] [place] [address], [place] [phone] Marbin Flores MD [address] [facility] DIV OF [place] [address] Niraj Truner MD [address] [facility] 2L [place] [address] 2025 1:00 PM FINANCIAL REPORT SERVICE SALES AGENT Office Visit [facility] Neurology [address] [place] [address], [place] [phone] Becky Wilson MD [address] [place] [phone] Scheduled Procedures Name Priority Associated Diagnoses Date/Ti [...] HLA Specimen 07/31/2023 3:32 PM CDT [facility] Comment:The Hold HLA specime n has been received into the lab and will be held for 5 years at 4 degrees. Blood BLOOD SPECIMEN / Unknown 07/23/2023 2:05 PM CDT 07/31/2023 2:06 PM CDT Alan Davenport MD LAB - BLOOD BANK ORDERABLES F inal Result [facility] ([facility]) [address] documented in this encounter Visit Diagnoses Not on filedocumented in this encounter Additional Health Concerns Infection Onset Date Last Indicated Resolved Time COVID-19 Under Investigation 09/13/2024 09/13/2024 09/13/2024 6:36 AM CDT documented as of this encounter Care Teams Switchboard Troubleshooter Relationship Specialty Start Date End Date Jeff Strickland MD [address] [place] [address] PCP - General 03/05/18 [place] [address] [place] [address] Orthopedic Surgery 03/28/17 documented as of this encounter
--- OUTSIDE RECORDS SUMMARY | 2024-11-18 14:46 | XMS_ITS | Encounter Summary ---
Author Organization [facility] Address [address] [place] [address] Phone Care Team Providers Care Solution Consultant Name Role Phone Jeff Strickland MD Primary Care Provider Chan Nichoals MD Unavailable Alan Mccall MD Unavailable [phone] Lorna Lantigua MD Unavailable Juliette Savage RN Unavailable Pepito Haro MD PhD Unavailable Solange Guido MD Unavailable [phone] Letha Gil RN Unavailable [phone] Encounter Details Date Type Department Care Team (Late st Contact Info) Description 05/02/2021 Ophth Exam [facility] Medicine Ophthalmology [address] [place] [address] 1st [place] [phone] Corina Ventura MD PhD [address] [address] Social History Tobacco Use Types [...] on file Legal Sex Male 2:23 AM DONATIONS ATTENDANT Gender Identity Not on file Sexual Orientation [...] COVID: Suspected 03/24/2023 03/24/2023 03/24/2023 5:45 PM DONATIONS ATTENDANT COVID19 03/24/2023 03/24/2023 04/08/2023 3:06 AM DONATIONS ATTENDANT COVID: Recovered Comment:Added based on recent COVID infection. 04/08/2023 04/10/2023 07/07/2023 3:06 AM C DT COVID: Suspected 04/10/2024 04/10/2024 04/11/2024 1:24 AM DONATIONS ATTENDANT C. difficile suspected 04/11/2024 04/11/202404/11 1:21 PM DONATIONS ATTENDANT documented as of this encounter Eye Exam [...] arcade Normal Periphery Normal Normal Care Teams Solution Consultant Relationship Specialty Start Date End Date Jeff Strickland MD [address] [address] PCP - General Family Medicine 04/02/18 Chan Nicholas MD [address] [place] [address] [id number] Consulting Physician Gastroenterology 11/24/18 Alan Mccall MD [address] [place] [address] [address] Referring Physician Nephrology 11/24/18 Lorna Lantigua MD [facility] [address] [address] Consulting Physician Cardiology 11/24/18 07/22/23 Juliette Savage, RN [address] [place] [address] Nurse Navigator 06/04/21 03/14/22 Pepito Haro MD PhD [address] [place] [address] Consulting Physician Neurosurgery 12/03/22 Solange Guido MD [address] [facility] [address] [place] [address] Referring Physician Cardiovascular Disease 07/23/23 Letha Gil, RN [address] [facility] [address] [place] [address] SHOP Outpatient Licensed Social Worker 04/14/24 04/18/24 documented as of this encounter
--- OUTSIDE RECORDS SUMMARY | 2024-11-18 14:46 | XMS_ITS | Encounter Summary ---
Author Organization [facility] Address [facility] [place] [address] Care Team Providers Care Shoulder Pad Molder Name Role Phone Deandre Bojorquez MD Unavailable [phone] Jeff Strickland MD Primary Care Provider [phone] Encounter Details Date Type Department Care Team (Late st Contact Info) Description 04/29/2024 Lab Requisition [facility] [address] [place] [phone] Alan Davenport MD [facility] [place] [address] Social History Tobacco Use Types Packs/Day Years Used Date Smoking Tobacco: Never Smokeless Tobacco: Never Alcohol Use Standard Drinks/Week Comments Not Currently 0 (1 standard drink = 0.6 oz pur e alcohol) socially in past Sex and Gender Information Value Date Recorded Sex Assigned at Male 07/02/2021 2:37 PM CDT Legal Sex Male 10:14 PM FITTER / WELDER Gender Identity Male 07/02/2021 2:37 PM [...] 10:00 AM CDT Appointment H IVR [address] [place] [address] Elroy Holcomb MD [address] [place] [address] 2L [place] [address] 11/24/2024 9:05 AM CDT Hospital Encounter [facility] [address] [place] [address] Elroy Holcomb MD [address] [place] [address] [address] [place] [address] Surgery General 11/24/2024 9:05 AM CDT - 11/24/2024 11:20 AM CDT Surgery [facility] [address] [place] [address] Elroy Holcomb MD [address] [place] [address] 2L [place] [address] Bilateral first toe debridement 12/06/2024 10:40 AM CDT Office Visit [facility] - Endocrinology [address] [place] [address], [place] [phone] Marbni Flores MD [address] [facility] DIV OF [place] [address] Niraj Turner MD 12[address] [facility] 2L [place] [address] 2025 1:00 PM FITTER / WELDER Office Visit [facility] - Neurology [address] [place] [address], [place] [address] Becky Wilson MD [address] [place] [phone] Scheduled Procedures Name Priority Associated Diagnoses Date/Ti [...] Hold HLA Specimen 04/29/2024 3:02 PM CDT [facility]) Comment:The Hold HLA specime n has been received into the lab and will be held for 5 years at 4 degrees. Blood BLOOD SPECIMEN / Unknown 04/27/2024 1:48 PM CDT 04/29/2024 1:49 PM CDT Alan Davenport MD LAB - BLOOD BANK ORDERABLES F inal Result [facility] ([facility]) [address] documented in this encounter Visit Diagnoses Not on filedocumented in this encounter Additional Health Concerns Infection Onset Date Last Indicated Resolved Time COVID-19 Under Investigation 09/13/2024 09/13/2024 09/13/2024 6:36 AM CDT documented as of this encounter Care Teams Shoulder Pad Molder Relationship Specialty Start Date End Date Jeff Strickland MD [address] [place] [address] PCP - General 03/05/18 [place] [address] [place] [address] Orthopedic Surgery 03/28/17 documented as of this encounter
--- NOTE | 2024-11-18 15:11 | ED.GENADULT ---
HPI - General Adult General Chief complaint: Headache Stated complaint: brain fog, all mixed up Time Seen by Provider: 11/18/24 14:19 History of Present Illness HPI narrative: 69-year-old male presents emergency to the department for evaluation for brain fog and headache. Patient states that he did not sleep well last night but woke up at 3:00 a.m. and was having brain fog. Patient states that he then took his anxiety medication which is Ativan. Patient does have a chronic wound on his left foot and patient is going to have surgery at [facility] on Friday. Related Data Home Medications ?Medication ?Instructions ?Recorded ?Confirmed ?Last Taken ?Type aspirin 81 mg tablet,delayed 81 mg PO HS 02/01/19 11/11/24 08/04/24 History release (Sami Low Dose Aspirin) vit C 250 mg-vit E 200 unit-zinc 1 tablet PO Q12H 02/01/19 11/11/24 08/05/24 History 12.5 mg-copper 1 bi-eau-jrqbmy tablet (ICaps AREDS2 (copper citrate)) cholecalciferol (vitamin D3) 125 125 mcg PO DAILY 10/01/22 11/11/24 08/05/24 History mcg (5,000 unit) tablet (Vitamin D3) atorvastatin 80 mg tablet 80 mg PO HS 09/02/23 11/11/24 08/04/24 History folic acid 0.8 mg-vit B comp with 800 tablet PO DAILY 04/03/24 11/11/24 08/05/24 History N-czsa-ynhehkw D3 2,000 unit tablet (Dialyvite 800-Ultra D) insulin aspart U-100 100 unit/mL 1 sliding scale dose subcut TID 04/03/24 11/11/24 08/05/24 History (3 mL) subcutaneous pen (Novolog FlexPen U-100 Insulin aspart) insulin glargine 100 unit/mL (3 35 unit subcut HS 04/03/24 11/11/24 08/04/24 History mL) subcutaneous pen (Basaglar KwikPen U-100 Insulin) lisinopril 20 mg tablet 20 mg PO BID 04/21/24 11/11/24 08/05/24 History blood-glucose transmitter (Dexcom 04/23/24 11/11/24 Unknown History G6 Transmitter device) carvedilol 25 mg tablet 25 mg PO BID 06/17/24 11/11/24 08/05/24 History tamsulosin 0.4 mg capsule 0.4 mg PO HS 06/17/24 11/11/24 08/04/24 History clopidogrel 75 mg tablet 75 mg PO HS 07/25/24 11/11/24 08/04/24 History furosemide 80 mg tablet 160 mg PO BID 09/23/24 11/11/24 Unknown History midodrine 2.5 mg tablet 2.5 mg PO BID 11/09/24 11/11/24 Unknown History potassium chloride 20 mEq 20 meq PO DAILY 11/09/24 11/11/24 Unknown History tablet,extended release (K-Tab) Allergies Allergy/AdvReac Type Severity Reaction Status Date / Time oxycodone AdvReac Unknown Hallucinati Verified 11/18/24 14:07 ng Review of Systems Review of Systems: All systems reviewed & are unremarkable except as noted in HPI and below PMFSH Past Medical History Medical History Brain fog Dementia Hypertensive heart disease with heart failure Chronic diarrhea Family history of colon cancer in father Chronic ethmoidal sinusitis Nasal congestion Bilateral impacted cerumen Allergic rhinitis Chronic sinusitis Chronic recurrent sinusitis Hypertensive CHF C. difficile colitis Arthritis Kidney stones Benign prostatic hyperplasia Coronary artery disease End-stage renal disease on peritoneal dialysis Obstructive sleep apnea Insulin dependent type 2 diabetes mellitus Renal cell carcinoma Status post partial left nephrectomy. Dyslipidemia Clostridium difficile infection Gastroesophageal reflux disease Depression with anxiety Hypothyroidism Cirrhosis Pituitary tumor Status post resection. Anemia Chronic diastolic (congestive) heart failure Hypertension Surgical History Surgical History History of open reduction and internal fixation (ORIF) procedure (11/2022) Screw fixation of sternal fracture. History of colonoscopy with polypectomy History of umbilical hernia repair History of inguinal hernia repair History of coronary artery stent placement History of cardiac catheterization (08/2020) Stent x2 to the LAD. History of arthroplasty of right knee History of cataract extraction History of pituitary surgery (11/2021) History of partial nephrectomy Partial left nephrectomy for renal cell carcinoma. History of cholecystectomy (2007) Family History Family History Mother Aneurysm Hypertension Cerebrovascular accident Heart murmur Father Carcinoma of colon Social History Social History Social History: Surrogate medical decision maker: Harriet Carl, spouse. Code status: Full code. Smoking status: Never smoker Second hand tobacco smoke exposure: No Alcohol intake: never Alcohol use details: rare, holidays Substance use: never Substance use type: does not use Do You Feel Safe in your Home?: Yes Lack of Transportation: No Lack of Food: Never True Current Housing: I Have Housing Concerned About Future Housing: No Difficulty Paying Gas/Electric Bills: No Difficulty Paying for Meds: No Currently Unemployed: No Education: Trade/Vocational Certificate Difficulty w/ Childcare or Family Care: No Living arrangements: with family Additional living arrangements comments: Lives with spouse in [place]. Occupation/Education: retired Additional occupation/education comments: [employer]. Spiritual care concerns: No Agree to blood products: Yes Exam Narrative: APPEARANCE: Well appearing, no pain, no distress, well-nourished. HEAD: normocephalic, atraumatic. EYES: PERRLA/EOMI, conjunctivae clear. NOSE: Normal no drainage EARS:TMS clear with good light reflex. THROAT: Pharynx clear, no exudate. NECK: Supple. No adenopathy, no masses. RESPIRATORY: Airway patent, respirations nonlabored. Clear to auscultation bilaterally, no rales, rhonchi, wheezing. CARDIOVASCULAR: Regular rate and rhythm without murmurs rubs or gallops. ABDOMINAL: Soft, nontender, nondistended, normal bowel sounds MUSCULOSKELETAL: Moves all extremities. Strength/ROM intact, No edema, No calf tenderness. NEURO: Alert. Cranial nerves II through XII intact. Good gait. Good coordination SKIN: Warm, dry. Normal Color Course Vital Signs Vital signs: Vital Signs Temperature 98.5 F 11/18/24 14:09 Pulse Rate 70 11/18/24 14:09 Respiratory Rate 18 11/18/24 14:09 Blood Pressure 136/71 11/18/24 14:09 Pulse Oximetry 100 11/18/24 14:09 Oxygen Delivery Room Air 11/18/24 14:09 Temperature 98.1 F 11/18/24 14:34 Pulse Rate 64 11/18/24 17:24 Respiratory Rate 16 11/18/24 17:24 Blood Pressure 141/78 H 11/18/24 17:24 Pulse Oximetry 100 11/18/24 17:24 Oxygen Delivery Room Air 11/18/24 14:34 Medical Decision Making MDM Narrative Medical decision making narrative: 61-year-old male presents to the emergency department for evaluation for a brain fog. Patient also stating he is having a headache. Patient is currently afebrile no leukocytosis and hemoglobin of 11.0. INR 1.0. Patient's CMP is similar to his baseline. Patient was negative for influenza RSV and for COVID. Head CT was negative for acute intracranial pathology. Patient did feel improved with treatment. On re-evaluation patient was able to ambulate in the emergency department without issue. Patient was encouraged of close follow-up with his surgeons on Friday. Differential Diagnosis Differential Diagnosis: Septal hematoma, subarachnoid hemorrhage, COVID, RSV, influenza, pneumonia Vital Signs Vital Signs: Vital Signs Temperature 98.5 F 11/18/24 14:09 Pulse Rate 70 11/18/24 14:09 Respiratory Rate 18 11/18/24 14:09 Blood Pressure 136/71 11/18/24 14:09 Pulse Oximetry 100 11/18/24 14:09 Oxygen Delivery Room Air 11/18/24 14:09 Temperature 98.1 F 11/18/24 14:34 Pulse Rate 64 11/18/24 17:24 Respiratory Rate 16 11/18/24 17:24 Blood Pressure 141/78 H 11/18/24 17:24 Pulse Oximetry 100 11/18/24 17:24 Oxygen Delivery Room Air 11/18/24 14:34 Lab Data Lab results reviewed: Yes I reviewed the patient's lab results. 11/18/24 15:34 11/18/24 15:34 Labs: Lab Results 11/18/24 11/18/24 Range/Units 14:45 15:34 WBC 7.3 (4.5-10.0) K/mm3 RBC 3.80 L (4.6-6.20) M/mm3 Hgb 11.0 L (14.0-18.0) g/dL Hct 34.7 L (42.0-52.0) % MCV 91.3 (80-100) fl MCH 28.9 (26-34) pg MCHC 31.7 L (32-36) g/dl RDW 16.9 H (11.5-14.5) % Plt Count 189 (150-375) k/mm3 MPV 10.7 H (7.4-10.4) fl Immature Gran % (Auto) 1.2 H (0-0.5) % Neut % (Auto) 64.8 (45.5-73.1) % Lymph % (Auto) 17.5 L (18.3-44.2) % [place] % (Auto) 14.6 H (2.6-8.5) % Eos % (Auto) 1.6 (0-4.4) % Baso % (Auto) 0.3 (0.2-1.2) % Lymph # (Auto) 1.28 (0.9-3.2) K/mm3 [place] # (Auto) 1.1 H (0.1-0.6) K/mm3 Eos # (Auto) 0.1 (0-0.3) K/mm3 Baso # (Auto) 0.0 (0.0-0.1) K/mm3 Abs Immat Gran (auto) 0.09 H (0.00-0.031) K/mm3 Absolute Neuts (auto) 4.7 (1.3-6.7) K/mm3 Absolute Nucleated RBC 0.000 (0.0-0.012) K/mm3 Nucleated RBC % 0.0 (0.0-0.2) % PT 13.3 (11.1-14.7) Seconds INR 1.0 APTT 27.9 (22.3-36.8) Seconds Sodium 130 L (137-145) mmol/L Potassium 3.6 (3.4-5.0) mmol/L Chloride 95 L (98-107) mmol/L Carbon Dioxide 24 (22-30) mmol/L Anion Gap 11 (4-12) mmol/L BUN 31 H (9-20) mg/dL Creatinine 7.46 H (0.7-1.3) mg/dL Estim Creat Clear Calc 11 ml/min Estimated GFR 7 L (59 - ) Glucose 113 H (65-110) mg/dL Calcium 8.6 (8.4-10.2) mg/dL Total Bilirubin 0.5 (0.2-1.3) mg/dL AST 75 H (17-59) U/L ALT 145 H (6-50) U/L Alkaline Phosphatase 132 H (38-126) U/L Total Protein 5.8 L (6.3-8.2) g/dL Albumin 3.0 L (3.5-5.1) g/dL Influenza A (RT-PCR) Negative (Negative) Influenza B (RT-PCR) Negative (Negative) RSV (RT-PCR) Negative (Negative) SARS-CoV-2 RNA (RT-PCR) Negative (Negative) Imaging Data Radiologist's impression: Impressions Head CT 11/18/24 16:11 Impression: 1. No acute infarct or hemorrhage. Nonspecific scattered foci of calcification that may reflect sequelae of previous infection. Outpatient contrast-enhanced MRI recommended Discharge Plan Discharge Clinical Impression: Headache Patient Disposition: Home Condition: Stable Instructions: Antibiotic Form Additional Instructions: Have close follow-up with [facility] for surgery as scheduled. If you have any worsening symptoms and please call or return to the emergency department. Patient Language: Persian Prescriptions: No Action aspirin [Sami Low Dose Aspirin] 81 mg Tablet,Delayed Release (Dr/Ec) 81 mg PO HS ICaps AREDS2 (copper citrate) 250 mg-200 unit -12.5 mg-1 mg Tablet 1 tablet PO Q12H (DME) Dexcom G6 Transmitter Device See Rx Instructions .Route Rx Instructions: As directed gabapentin 100 mg tablet 100 mg PO BID Qty: 60 1RF lanthanum 1,000 mg tablet,chewable 1,000 mg PO TID Qty: 1 0RF Rx Instructions: administer with food; chew thoroughly before swallowing furosemide 80 mg tablet 160 mg PO BID lisinopril 20 mg tablet 20 mg PO BID pantoprazole 40 mg tablet,delayed release (DR/EC) 40 mg PO QAM Qty: 90 3RF midodrine 2.5 mg tablet 2.5 mg PO BID Rx Instructions: do not give last dose of day after 6PM or within 4 hrs of bedtime potassium chloride [K-Tab] 20 mEq tablet extended release 20 meq PO DAILY donepezil [Aricept] 5 mg tablet 5 mg PO QHS Qty: 90 1RF Rx Instructions: increase to 2 tablets after 1 month escitalopram oxalate [Lexapro] 10 mg tablet 10 mg PO DAILY Qty: 30 3RF famotidine 20 mg tablet 20 mg PO DAILY Qty: 30 0RF ondansetron 4 mg tablet,disintegrating 4 mg PO Q8H PRN (Reason: nausea and vomiting) Qty: 8 0RF cholecalciferol (vitamin D3) [Vitamin D3] 125 mcg (5,000 unit) Tablet 125 mcg PO DAILY atorvastatin 80 mg tablet 80 mg PO HS carvedilol 25 mg tablet 25 mg PO BID tamsulosin 0.4 mg capsule 0.4 mg PO HS Dialyvite 800-Ultra D 0.8-2,000 mg-unit tablet 800 tablet PO DAILY insulin aspart U-100 [Novolog FlexPen U-100 Insulin] 100 unit/mL (3 mL) insulin pen 1 sliding scale dose subcut TID Patient Comments: PATIENT TAKES 5 UNITS WITH MEALS SCHEDULED AND GOES UP TO 15 UNITS IF IT GETS TO 300 insulin glargine [Basaglar KwikPen U-100 Insulin] 100 unit/mL (3 mL) insulin pen 35 unit subcut HS Patient Comments: 40 UNITS IN MORNING clopidogrel 75 mg tablet 75 mg PO HS artificial tears(hypromellose) 0.3 % drops 1 drp LEFT EYE QID PRN (Reason: dry eyes) Qty: 30 0RF hydrocodone-acetaminophen 5-325 mg tablet 1 tablet PO Q6H PRN (Reason: pain) Qty: 30 0RF levothyroxine 112 mcg tablet 112 mcg PO DAILY Qty: 90 2RF Follow-up/Referrals: Jeff Strickland MD [Primary Care Provider, Family Practice]
[2024-11-18 15:27] LABS: Influenza A QL RT-PCR Negative (Negative); Influenza B QL RT-PCR Negative (Negative); RSV RNA, RT-PCR Negative (Negative); SARS-CoV-2 RNA PCR Negative (Negative)
[2024-11-18 15:42] LABS: Hematocrit 34.7 % (42.0-52.0); Hemoglobin 11.0 g/dL (14.0-18.0); Immature Granulocyte Percent A 1.2 % (0-0.5); Lymphocytes Absolute Auto 1.28 K/mm3 (0.9-3.2); Mean Corpuscular HGB Conc 31.7 g/dl (32-36); Mean Corpuscular Hemoglobin 28.9 pg (26-34); Mean Corpuscular Volume 91.3 fl (80-100); Nucleated Red Blood Cells Absolute Auto 0.000 K/mm3 (0.0-0.012); Nucleated Red Blood Cells Perc 0.0 % (0.0-0.2); Platelet Count Result 189 k/mm3 (150-375); Red Blood Count 3.80 M/mm3 (4.6-6.20); White Blood Count 7.3 K/mm3 (4.5-10.0)
[2024-11-18 15:53] LABS: INR 1.0; Prothrombin Time 13.3 Seconds (11.1-14.7)
[2024-11-18 15:54] LABS: Partial Thromboplastin Time 27.9 Seconds (22.3-36.8)
[2024-11-18 15:57] LABS: Alanine Aminotransferase 145 U/L (6-50); Albumin Level 3.0 g/dL (3.5-5.1); Alkaline Phosphatase 132 U/L (38-126); Anion Gap 11 mmol/L (4-12); Aspartate Amino Transferase 75 U/L (17-59); Bilirubin,Total 0.5 mg/dL (0.2-1.3); Blood Urea Nitrogen 31 mg/dL (9-20); Calcium 8.6 mg/dL (8.4-10.2); Carbon Dioxide 24 mmol/L (22-30); Chloride 95 mmol/L (98-107); Estimated CRCL calculation 11 ml/min; Estimated Glomerular Filt Rate 7; Glucose 113 mg/dL (65-110); Potassium 3.6 mmol/L (3.4-5.0); Sodium 130 mmol/L (137-145); Total Protein 5.8 g/dL (6.3-8.2)
[2024-11-18] MEDS: MORPHINE SULFATE (*CRX) 4 MG/ML INJ 2 MG IV PUSH (16:49)
== END 2024-11-18 17:11 | disposition home or self-care (01) ==
PROVIDERS: Emergency Provider Emergency Medicine; PCP Family Medicine
DX: R51.9 Headache, unspecified (principal); Z20.822 Contact with and (suspected) exposure to COVID-19; F41.9 Anxiety disorder, unspecified; E11.22 Type 2 diabetes mellitus with diabetic chronic kidney disease; I13.2 Hypertensive heart and chronic kidney disease with heart failure and with stage 5 chronic kidney disease, or end stage renal disease; N18.6 End stage renal disease; I50.32 Chronic diastolic (congestive) heart failure; Z99.2 Dependence on renal dialysis; J32.2 Chronic ethmoidal sinusitis; E78.5 Hyperlipidemia, unspecified; N40.0 Benign prostatic hyperplasia without lower urinary tract symptoms; K74.60 Unspecified cirrhosis of liver; D64.9 Anemia, unspecified; M19.90 Unspecified osteoarthritis, unspecified site; F41.8 Other specified anxiety disorders; Z95.5 Presence of coronary angioplasty implant and graft; Z96.651 Presence of right artificial knee joint; Z85.528 Personal history of other malignant neoplasm of kidney; Z87.442 Personal history of urinary calculi; Z86.0100 Personal history of colon polyps, unspecified; Z98.49 Cataract extraction status, unspecified eye; Z90.5 Acquired absence of kidney; Z90.49 Acquired absence of other specified parts of digestive tract; Z79.82 Long term (current) use of aspirin; Z79.899 Other long term (current) drug therapy; Z79.4 Long term (current) use of insulin; Z79.02 Long term (current) use of antithrombotics/antiplatelets
CPT/HCPCS: 36415; 70450; 80053; 85025; 85610; 85730; 87637; 96374; 99284; J2270

== ENCOUNTER 2024-11-18 20:34 | Emergency (ER) | payer MEDICARE, SELFPAY ==
--- OUTSIDE RECORDS SUMMARY | 2009-04-18 10:00 | XMS_ITS | Continuity of Care Document ---
Author Organization [facility] Address [address] [place] [address] Phone Care Team Providers Care Field Crop Technical Officer Name Role Phone Kee Rodriguez Unavailable Unavailable Procedures Procedure Date Office/outpatient Visit, Est Eye Exam Established Pt Advance Directives Directive Yes / No Effective Date File Name No Information Encounters Encounter Description Practice Location Reason(s) For Visit Diagnoses Date Provider Providers Copied on Encounter Office/outpat ient Visit, Est [facility], [address] [place] [address] [address], [place], [place], [address], tel:[phone] SEC [facility] No Information Mar-0 2-201 0 Krishnasamy Kee. [address] [facility] [place] [address], [place], [place], [facility], [place]. tel:[phone] [facility], [address] [place] [address] [address], [place], [place], [address], tel:[phone] SEC [facility] No Information Nhan-3 0-200 7 David OD Freddy. [address], [place], [place], [facility], [place]. tel:[phone] Family History Family Member Type Diagnosis Age At Onset No Information Payers Payer name Insurance type Covered green party ID Authoriza tion(s) No Information Social History Type Description Quantity Date Captured Comments Sex Male Smoking Status No Information Chief Complaint And Reason For Visit No Information Reason For Referral Reason For Referral No Information History Of Present Illness Encounter Date Complaint History Of Prese nt Illness No Information Functional Status Date Functional Assessmen t No Information Instructions Date Instruction Additional Infor mation No Information Assessments Type Assessment Date No Information Patient Care Teams Name Effective Dates (start - stop) Status Members No Information
--- OUTSIDE RECORDS SUMMARY | 2023-09-09 06:59 | XMS_ITS | Continuity of Care Document ---
Author Organization [employer] [place] Address [address] [facility] [address] [place] [address] Phone Care Team Providers Care Designer/Writer Name Role Phone Olu Payan Unavailable Unavailable [...] Diagnoses Date Provider Providers Copied on Encounter [facility], [place], [place], [address], tel:[phone] [place] No Information 4 Gladis Olu. [address] [place] [address], [address], [place], [facility], . tel: [phone] [address] [place] [address], [place], [place], [address], tel:[phone] [place] No Information 4 Genoveva Mcdonald. . Referring Provider: Jeff Strickland [address] [place] [address] 162 [address], [place], [facility]. tel:[phone] [place] [address] [address], [place], [place], [address], tel:[phone] [place] No Information 4 Gladis Olu. [address] [place] [address], [address], [place], [facility], . tel: [phone] Referring Provider: Yanira Chin [facility] [address], [place], [facility]. tel:[phone] [address] [address], [place], [place], [address], tel:[phone] [place] No Information 4 Gladis Raines. [address] [place] [address], [address], [place], [facility], . tel: [phone] Referring Provider: Yanira Chin [facility] [address], [place], [address]. tel:[phone], [id number], tel:[phone] [place] No Information 4 Jacinto Fairchild. . Referring Provider: Yanira Chin [facility] [address], [place], [address]. tel:[phone], [place], [place], [address], [place] tel:[phone] [place] No Information 4 Jacinto Fairchild. . Referring Provider: Jeff Strickland [address] [place] [address] [address], [place], [facility]. tel:[phone], [id number], tel:[phone] [place] No Information 4 Genoveva Mcdonald. . Referring Provider: Jeff Strickland [address] [place] [address] [address], [place], [facility]. tel:[phone], [id number], tel:[phone] [place] No Information 4 Gladis Raines. [address] [facility], [address], [place], [facility], . tel: [phone] Referring Provider: Jeff Strickland [address] [place] [address] [address], [place], [facility]. tel:[phone], [id number], tel:[phone] [place] No Information 0 4 Genoveva Mcdonald. . Referring Provider: Jeff Strickland [address] [place] [address] [address], [place], [facility]. tel:[phone], [place], [address], [place] tel:[phone] [place] No Information 0 4 Gladis Raines. [address] [facility], [address], [place], [facility], . tel: [phone] Referring Provider: Jeff Strickland [address] [place] [address] [address], [place], [facility]. tel:[phone] Family History Family Member Type Diagnosis Age At Onset No Information Payers Payer name Insurance type Covered green party ID Diego suarez(ernesto Hadley [id number] Social History Type Description Quantity Date Captured [...]
[2024-11-18 20:36] VITALS: BP 135/66; PULSE 68; RESP 20; TEMP 36.2; O2SAT 100
--- OUTSIDE RECORDS SUMMARY | 2024-11-18 20:39 | XMS_ITS | Encounter Summary ---
Author Organization [facility] Address [address] [place] [address] Care Team Providers Care Older Adult Social Work Specialist Name Role Phone Deandre Bojorquez MD Unavailable [phone] Jeff Strickland MD Primary Care Provider [phone] Encounter Details Date Type Department Care Team (Late st Contact Info) Description 09/10/2024 Telephone [facility] - Centralized Scheduling [facility] [place] [address] Niraj Turner MD [facility] [place] [address] Social History Tobacco Use Types Packs/Day Years [...] and heating? Not hard at all 09/14/2024 [facility] [place] 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 Gender Identity Male 07/02/2021 2:37 [...] Info) Description 11/23/2024 10:00 AM CDT Appointment [facility] [address] [place] [address] Elroy Holcomb MD [facility] 2L [place] [address] 11/24/2024 9:05 AM CDT Hospital Encounter [facility] [address] [place] [address] Elroy Holcomb MD [address] [place] [address] 2L [place] [address] Surgery General 11/24/2024 9:05 AM CDT - 11/24/2024 11:20 AM CDT Surgery [facility] [address] [place] [phone] Elroy Holcomb MD [facility] 2L [place] [address] Bilateral first toe debridement 12/06/2024 10:40 AM CDT Office Visit [facility] - Endocrinology [address] [place] [address], [place] [phone] Marbin Flores MD [address] [facility] DIV [place] [address] Niraj Turner MD [address] [place] [address] 2L [place] [address] 2025 1:00 PM BLOW MOLDING MACHINE TENDER Office Visit [facility] - Neurology [address] [place] [phone] Becky Wilson MD [address] [place] [phone] Scheduled Procedures Name Priority Associated Diagnoses Date/Ti [...] documented as of this encounter Care Teams Older Adult Social Work Specialist Relationship Specialty Start Date End Date Jeff Strickland MD [address] [place] [address] PCP - General 03/05/18 [place] [address] [address] Orthopedic Surgery 03/28/17 documented as of this encounter
--- OUTSIDE RECORDS SUMMARY | 2024-11-18 20:39 | XMS_ITS | Clinical Summary ---
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 Active aspirin (ANGELLA) 325 mg tablet Take 325 mg by mouth daily. Active Vit C-Vit U-Vrmivo-UxJk-L utein (PRESERVISION) 226 mg-200 unit -5 mg-0.8 [...] Comments Blood Pressure 167/77 02/04/2019 9:16 AM SLEEVE SETTER SAFETY STITCH Pulse 64 02/04/2019 9:16 AM SLEEVE SETTER SAFETY STITCH Temperature 36.5 C (97.7 F) 02/04/2019 9:16 AM SLEEVE SETTER SAFETY STITCH Respiratory Rate 16 02/04/2019 9:16 AM SLEEVE SETTER SAFETY STITCH Oxygen Saturation 97% 02/04/2019 9:16 AM SLEEVE SETTER SAFETY STITCH Inhaled Oxygen Concentration - - Weight 113.4 kg (250 lb) 02/04/2019 9:16 AM SLEEVE SETTER SAFETY STITCH Height 175.3 cm (5' 9) 02/04/2019 9:16 AM SLEEVE SETTER SAFETY STITCH Body Mass Index 36.92 02/04/2019 9:16 AM SLEEVE SETTER SAFETY STITCH Plan of Treatment Health Maintenance Due Date [...] PPO [employer] MEDICARE SUPPLEMENT PPO [facility] BLUE ACCESS/TRUE BLUE PPO Care Teams Launch Commander [employer] Relationship Specialty Start Date End Date Jeff Strickland MD [address] [facility] [address] [place] [address] PCP - General Family Practice 01/01/19
--- OUTSIDE RECORDS SUMMARY | 2024-11-18 20:39 | XMS_ITS | Encounter Summary ---
Author Organization [facility] Address [facility] [place] [address] Care Team Providers Care Cart Driver Name Role Phone Deandre Bojorquez MD Unavailable [phone] Jeff Strickland MD Primary Care Provider [phone] Encounter Details Date Type Department Care Team (Late st Contact Info) Description 06/25/2024 Lab Requisition [facility] [address] [place] [id number] Alan Davenport MD [facility] [place] [address] Social History Tobacco Use Types Packs/Day Years Used Date Smoking Tobacco: Never Smokeless Tobacco: Never Alcohol Use Standard Drinks/Week Comments Not Currently 0 (1 standard drink = 0.6 oz pur e alcohol) socially in past Sex and Gender Information Value Date Recorded Sex Assigned at Male 07/02/2021 2:37 PM CDT 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 Gender Identity Male 07/02/2021 2:37 PM [...] 10:00 AM CDT Appointment H IVR [address] [place] [address] Elroy Holcomb MD [address] [place] [address] [address] [place] [address] 11/24/2024 9:05 AM CDT Hospital Encounter [facility] [address] [place] [address] Elroy Holcomb MD [address] [place] [address] [address] [place] [address] Surgery General 11/24/2024 9:05 AM CDT - 11/24/2024 11:20 AM CDT Surgery [facility] [address] [place] [address] Elroy Holcomb MD [address] [place] [address] [address] [place] [address] Bilateral first toe debridement 12/06/2024 10:40 AM CDT Office Visit [facility] - Endocrinology [address] [place] [address], [place] [phone] Marbin Flores MD [address] [facility] DIV OF [place] [address] Niraj Turner MD [address] [facility] 2L Div [place] [address] 2025 1:00 PM STEEP TENDER Office Visit [facility] Neurology [address] [place] [address], [place] [phone] Becky Wilson MD [address] [place] [phone] Scheduled Procedures Name Priority Associated Diagnoses Date/Ti [...] Hold HLA Specimen 06/25/2024 12:32 PM CDT [facility] Comment:The Hold HLA specime n has been received into the lab and will be held for 5 years at 4 degrees. Blood BLOOD SPECIMEN / Unknown 06/22/2024 11:05 AM CDT 06/25/2024 11:05 AM CDT Alan Davenport MD LAB - BLOOD BANK ORDERABLES F inal Result [facility] [address] documented in this encounter Visit Diagnoses Not on filedocumented in this encounter Additional Health Concerns Infection Onset Date Last Indicated Resolved Time COVID-19 Under Investigation 09/13/2024 09/13/2024 09/13/2024 6:36 AM CDT documented as of this encounter Care Teams Cart Driver Relationship Specialty Start Date End Date Jeff Strickland MD [address] [place] [address] PCP - General 03/05/18 [place] [address] [place] [id number] Orthopedic Surgery 03/28/17 documented as of this encounter
--- OUTSIDE RECORDS SUMMARY | 2024-11-18 20:39 | XMS_ITS | Clinical Summary ---
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 Routine 09/01/2024 2:18 PM CDT Abnormal stress test Dyspnea on exertion Pre-kidney transplant, listed Coronary artery disease with angina pectoris, unspecified vessel or lesion type, unspecified whether naknek or transplanted heart Abnormal findings on cardiac catheterization CCL CORONARY IVUS Routine 09/01/2024 2:1 8 PM CDT Abnormal stress test Dyspnea on exertion Pre-kidney transplant, listed Coronary artery disease with angina pectoris, unspecified vessel or lesion type, unspecified whether naknek or transplanted heart Abnormal findings on cardiac catheterization CCL STAGED PERC CORONARY INTERVENTION Routine 09/01/2024 2:18 PM CDT Abnormal stress test Dyspnea on exertion Pre-kidney transplant, listed Coronary artery disease with angina pectoris, unspecified vessel or lesion type, unspecified whether naknek or transplanted heart Abnormal findings on cardiac catheterization GLUCOSE - POINT OF CARE Routine 09/01/2024 10:00 AM CDT CBC W/O DIFFERENTIAL ANDIE 09/01/2024 9:57 AM CDT Coronary artery disease with angina pectoris, unspecified vessel or lesion type, unspecified whether naknek or transplanted heart Abnormal findings on cardiac catheterization BASIC METABOLIC PANEL (CALCIUM TOTAL) ANDIE 09/01/2024 9:57 AM CDT Coronary artery disease with angina pectoris, unspecified vessel or lesion type, unspecified whether naknek or transplanted heart Abnormal findings on cardiac [...] Routine 08/18/2024 2:33 PM CDT 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) ACT LR - POCT ([facility]) Routine 08/18/2024 2:08 PM CDT ACT LR - POCT ([facility]) Routine 08/18/2024 1:24 PM CDT ACT LR - POCT ([facility]) Routine 08/18/2024 12:57 PM CDT ACT LR - POCT ([facility]) Routine 08/18/2024 12:13 PM CDT ANGIOPLASTY PERIPHERAL ARTERY 08/18/2024 10:49 AM CDT 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) GLUCOSE - POINT OF CARE Routine 08/18/2024 10:15 AM CDT BASIC METABOLIC PANEL (CALCIUM TOTAL) ANDIE 08/18/2024 10:11 AM CDT 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) CBC W/O DIFFERENTIAL ANDIE 08/18/2024 10:01 AM CDT 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) HEPATITIS C ANTIBODY Routine 06/16/2024 4:15 PM CDT Pre-kidney transplant, listed ESRD (end stage renal disease) (HCC) 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, without long-term current use of insulin (HCC) Hypertension, unspecified type Oncocytoma Kidney stones SHABNAM on CPAP Coronary artery disease involving naknek coronary artery of naknek heart, unspecified whether angina present from Last 3 Months or Most Recently Relevant to Health Maintenance Results * IR Angiogram Bilateral Leg (11/12/2024 9:06 AM CDT) Anatomical Region Laterality Modality Lower Extremity X-Ray Angiograph y 11/12/2024 9:47 AM CDT Impressions 11/12/2024 3:38 PM CDT IMPRESSION: Left lower extremity angiogram with patent OVERSEER KOSHER KITCHEN, SFA with areas of < 50% stenosis, patent TP trunk with occlusions in the peroneal and PT shortly after origin, with single vessel runoff to the foot via the AT with occlusion in the DP in the foot. Right lower extremity angiogram with patent OVERSEER KOSHER KITCHEN, SFA, and TP trunk with an occluded [...] Owusu 11/12/2024 9:47 AM > Dictated by Preforms Laminator I, Elroy Holcomb MD have personally reviewed [...] monitored moderate sedation ATTENDING: Elroy Holcomb MD PACKAGER OR PACKER AND WEIGHER: Griffin Rodriguez MD; Elroy Owusu MD ANESTHESIA: [...] exchanges this was upsized for a 5 Albanian sheath. A guidewire and omniflush catheter were [...] review the evaluation forms in [facility]. For details on monitored clinical parameters during the intra-service sedation time, please review the procedure nurse documentation in [facility]. Procedure Note Elroy Holcomb MD - 11/12/2024 [...] monitored moderate sedation ATTENDING: Elroy Holcomb MD PACKAGER OR PACKER AND WEIGHER: Griffin Rodriguez MD; Elroy Owusu MD ANESTHESIA: [...] of exchanges thiswas upsized for a 5 Albanian sheath. A guidewire and omniflush catheter werethen [...] review the evaluation forms in [facility]. For details on monitored clinical parameters during the intra-service sedation time, please review the procedure nurse documentation in [facility]. IMPRESSION: Left lower extremity angiogram with patent OVERSEER KOSHER KITCHEN, SFA with areas of < 50% stenosis, patent TP trunk with occlusions in the peroneal and PT shortly after origin, with single vessel runoff to the foot via the AT with occlusion in the DP in the foot. Right lower extremity angiogram with patent OVERSEER KOSHER KITCHEN, SFA, and TP trunk with an occluded AT distally, andocclusion in peroneal at level of ankle, and multifocal areas of stenosis in thePT which appears occluded at the level of the ankle. Successful deploymentof 5 Fr Mynx control closure device. Total fluoroscopy time of 4.2min. Total contrast usage of 60mL > Dictated by Elroy Owusu 11/12/2024 9:47 AM > Dictated by Preforms Laminator I, Elroy Holcomb MD have personally reviewed and interpreted this examination/study. > Interpreting Provider: Elroy Holcomb MD on 11/12/2024 3:38 PM us Elroy Holcomb MD IR ORDERABLES Final Resu lt * (ABNORMAL) BASIC METABOLIC PANEL (CALCIUM TOTAL) (11/12/2024 7:11 AM CDT) Only the most recent of7 resultswithin the time period is included. BUN 28(H) 7 - 26 mg/dL 11/12/2024 7:59 AM [facility] Creatinine 7.33(H) 0.71 - 1.16 mg/dL 11/12/2024 7:59 AM [facility] Sodium 138 136 - 145 mmol/L 11/12/2024 7:59 AM [facility] Potassium 3.5 3.5 - 4.5 mmol/L 11/12/2024 7:59 AM [facility] Chloride 97(L) 98 - 107 mmol/L 11/12/2024 7:59 AM [facility] CO2 25 22 - 29 mmol/L 11/12/2024 7:59 AM [facility] Glucose 164(H) 70 - 99 mg/dL 11/12/2024 7:59 AM [facility] Calcium 7.8(L) 8.4 - 10.2 mg/dL 11/12/2024 7:59 AM [facility] Anion Gap 16 6 - 16 11/12/2024 7:59 AM [facility] BUN/Creatinine Ratio 4(L) 7 - 23 11/12/2024 7:59 AM [facility] Osmolality Calculated 295 275 - 295 mOsm/kg 11/12/2024 7:59 AM [facility] eGFR by CKD-EPI 8(L) >=90 mL/min/1.7 3 m2 11/12/2024 7:59 AM [facility] Comment:Estimated Glomerular Filtration Rate (eGFR) calculated using the CKD-EPI Creatinine Equation (2020), per the National Kidney Foundation and [place] [employer]ph[employer] recommendations. Blood BLOOD SPECIMEN / Unknown Lab Venipuncture / Unknown 11/12/2024 7:11 AM CDT 11/12/2024 7:44 AM CDT Elroy Holcomb MD LAB - CHEMISTRY ORDERABLES Final Result [facility] [address] [place] [address], [facility] [phone] * (ABNORMAL) GLUCOSE - POINT OF CARE (11/12/2024 7:05 AM CDT) Only the most recent of56 resultswithin the time period is included. Glucose WB/POC 193(H) 70 - 99 mg/dL 11/12/2024 7:06 AM [facility] Specimen Type Venous 11/12/2024 7:06 AM [facility] Blood BLOOD SPECIMEN / Unknown 11/12/2024 7:05 AM CDT 11/12/2024 7:06 AM CDT Elroy Holcomb MD LAB - POINT OF CARE ORDERA BLES Final Result Performing Organization Address [facility]/ZIP Co de Phone Number [address] [address], [facility] [phone] * CARDIAC EKG ORDER (10/29/2024 4:31 PM [...] 71(H) <=35 ng/L 10/28/2024 3:13 AM CDT [facility] Delta Troponin I HS 10/28/2024 3:13 AM CDT [facility] Comment:Delta value intentio tito not calculated. Baseline to 1 hour specimen collection interval exceeded. Blood BLOOD SPECIMEN / Unknown Venipuncture / Unknown 10/28/2024 2:31 AM CDT 10/28/2024 2:37 AM CDT us Savanna Mcfarlane MD LAB - CHEMISTRY ORDERABLES Fi nal Result Performing Organization Address [facility] Co de Phone Number [address] [address], [facility] [phone] * LACTIC ACID BLOOD REFLEX TO REPEAT (10/28/2024 2:31 AM CDT) Only the most recent of5 resultswithin the time period is included. Lactic Acid-Stat 1.9 <=2.0 mmol/L 10/28/2024 3:06 AM CDT [facility] Blood BLOOD SPECIMEN / Unknown Venipuncture / Unknown 10/28/2024 2:31 AM CDT 10/28/2024 2:37 AM CDT us Savanna Mcfarlane MD LAB - CHEMISTRY ORDERABLES Fi nal Result [facility] [address] [place] [address], [facility] [phone] * XR Chest 2Vw (10/27/2024 11:58 PM [...] MD, (vice president lending). > Dictated by Preforms Laminator I, Blake Plasencia MD have personally reviewed [...] MD, (vice president lending). > Dictated by Preforms Laminator I, Blake Plasencia MD have personally reviewed and interpreted this examination/study. > Interpreting Provider: Blake Plasencia MD on 10/28/2024 3:32 AM Savanna Mcfarlane MD DIAGNOSTIC IMAGING ORDERABLES Final Result * (ABNORMAL) TROPONIN-I HIGH SENSITIVE BASELINE + 1HR (10/27/2024 11:53 PM CDT) Only the most recent of8 resultswithin the time period is included. [facility] Troponin I High Sensitive 72(H) <=35 ng/L 10/28/2024 12:49 AM [facility] Blood BLOOD SPECIMEN / Unknown Venipuncture / Unknown 10/27/2024 11:53 PM CDT 10/28/2024 12:12 AM CDT Savanna Mcfarlane MD LAB - CHEMISTRY ORDERABLES Fi nal Result [address] [address], [facility] [phone] * (ABNORMAL) CBC W AUTO DIFFERENTIAL (10/27/2024 11:53 PM CDT) Only the most recent of11 resultswithin the time period is included. [facility] WBC 7.8 4.0 - 10.7 x10E9/L 10/28/2024 12:26 AM [facility] RBC Count 3.31(L) 4.30 - 5.80 x10E12/L 10/28/2024 12:26 AM [facility] Hemoglobin 9.0(L) 13.3 - 17.5 g/dL 10/28/2024 12:26 AM [facility] Hematocrit 27.9(L) 38.7 - 51.1 % 10/28/2024 12:26 AM [facility] MCV 84.3 80.0 - 98.0 fL 10/28/2024 12:26 AM [facility] MCH 27.2 26.7 - 33.6 pg 10/28/2024 12:26 AM [facility] MCHC 32.3 31.7 - 36.3 g/dL 10/28/2024 12:26 AM [facility] RDW-CV 15.9(H) 11.3 - 14.8 % 10/28/2024 12:26 AM [facility] Platelet Count 187 150 - 420 x10E9/L 10/28/2024 12:26 AM [facility] MPV 10.2 7.8 - 11.4 fL 10/28/2024 12:26 AM [facility] Neutrophil % 67.0 41.0 - 74.0 % 10/28/2024 12:26 AM [facility] Lymphocyte % 16.4(L) 17.0 - 47.0 % 10/28/2024 12:26 AM [facility] Monocyte % 14.0(H) 3.0 - 11.0 % 10/28/2024 12:26 AM [facility] Eosinophil % 1.9 0.0 - 7.0 % 10/28/2024 12:26 AM [facility] Basophil % 0.1 0.0 - 1.6 % 10/28/2024 12:26 AM [facility] Immature Granulocytes % 0.6 0.0 - 1.0 % 10/28/2024 12:26 AM [facility] Neutrophil Absolute 5.23 1.60 - 7.50 x10E9/L 10/28/2024 12:26 AM [facility] Lymphocyte Absolute 1.28 1.00 - 4.40 x10E9/L 10/28/2024 12:26 AM [facility] Monocyte Absolute 1.09(H) 0.15 - 1.00 x10E9/L 10/28/2024 12:26 AM [facility] Eosinophil Absolute 0.15 0.00 - 0.60 x10E9/L 10/28/2024 12:26 AM [facility] Basophil Absolute 0.01 0.00 - 0.13 x10E9/L 10/28/2024 12:26 AM [facility] Blood BLOOD SPECIMEN / Unknown Venipuncture / Unknown 10/27/2024 11:53 PM CDT 10/28/2024 12:13 AM CDT us Savanna Mcfarlane MD LAB - HEMATOLOGY ORDERABLES F inal Result [facility] [address] [place] [address], [facility] [phone] * (ABNORMAL) COMPREHENSIVE METABOLIC PANEL (10/27/2024 11:53 PM CDT) Only the most recent of13 resultswithin the time period is included. BUN 34(H) 7 - 26 mg/dL 10/28/2024 12:45 AM [facility] Creatinine 7.86(H) 0.71 - 1.16 mg/dL 10/28/2024 12:45 AM [facility] Sodium 132(L) 136 - 145 mmol/L 10/28/2024 12:45 AM [facility] Potassium 3.5 3.5 - 4.5 mmol/L 10/28/2024 12:45 AM [facility] Chloride 95(L) 98 - 107 mmol/L 10/28/2024 12:45 AM [facility] CO2 25 22 - 29 mmol/L 10/28/2024 12:45 AM [facility] Glucose 104(H) 70 - 99 mg/dL 10/28/2024 12:45 AM [facility] Calcium 8.5 8.4 - 10.2 mg/dL 10/28/2024 12:45 AM [facility] Protein Total 5.6(L) 6.0 - 8.3 g/dL 10/28/2024 12:45 AM [facility] Albumin 2.2(L) 3.4 - 5.0 g/dL 10/28/2024 12:45 AM [facility] Bilirubin Total 0.3 0.2 - 1.2 mg/dL 10/28/2024 12:45 AM [facility] Alkaline Phosphatase 104 40 - 150 U/L 10/28/2024 12:45 AM [facility] ALT 56(H) 5 - 55 U/L 10/28/2024 12:45 AM [facility] AST 48(H) 5 - 34 U/L 10/28/2024 12:45 AM [facility] Anion Gap 12 6 - 16 10/28/2024 12:45 AM [facility] BUN/Creatinine Ratio 4(L) 7 - 23 10/28/2024 12:45 AM [facility] Osmolality Calculated 282 275 - 295 mOsm/kg 10/28/2024 12:45 AM [facility] Albumin/Globulin Ratio 0.6(L) 1.1 - 2.3 10/28/2024 12:45 AM [facility] eGFR by CKD-EPI 7(L) >=90 mL/min/1.7 3 m2 10/28/2024 12:45 AM [facility] Comment:Estimated Glomerular Filtration Rate (eGFR) calculated using the CKD-EPI Creatinine Equation (2020), per the National Kidney Foundation and [employer]ph[employer] recommendations. Blood BLOOD SPECIMEN / Unknown Venipuncture / Unknown 10/27/2024 11:53 PM CDT 10/28/2024 12:12 AM CDT us Savanna Mcfarlane MD LAB - CHEMISTRY ORDERABLES [facility] Result [facility] [address] [place] [address], [facility] [phone] * LIPASE BLOOD (10/27/2024 11:53 PM CDT) Only the most recent of3 resultswithin the time period is included. Lipase 41 8 - 78 U/L 10/28/2024 12:45 AM T [facility] Blood BLOOD SPECIMEN / Unknown Venipuncture / Unknown 10/27/2024 11:53 PM CDT 10/28/2024 12:12 AM CDT Narrative [facility] - 10/28/2024 12:45 AM CDT Lipase results from the Matthew Alinity analyzer may not be comparable with other methodologies. us Savanna Mcfarlane MD LAB - CHEMISTRY ORDERABLES Fi nal Result [facility] [address] [place] [address] [phone] * HLA ANTIBODY SCREEN LUM CLASS 2 SAB (10/27/2024 2:40 PM CDT) % PRA 0 11/04/2024 4:03 PM CDT [facility] ([facility]) Class 2 LUM SAB Moderate Risk DQ6 11/04/2024 4:03 PM CDT [facility] ([facility]) Class 2 SAB Test Date [id number] 11/04/2024 4:03 PM CDT [facility] ([facility]) Comment: Methodology - Luminex Bead-Based Immunoassay. This test was developed and its performance characteristics determined by the [facility]. It has not been cleared [...] high complexity clinical laboratory testing. CLIA ID# [id number] Performed at: [facility], [address] [place] [phone] Refrigerating Engineer Head: Steven Gonzalez, Ph.D., D([facility]), Blood BLOOD SPECIMEN / Unknown No Charge Blood Draw / Unknown 10/27/2024 2:40 PM CDT 11/01/2024 2:41 PM CDT Alan Davenport MD LAB - BLOOD BANK ORDERABLES F inal Result [facility] ([facility]) [address] [place] [id number] [place] [address] * HLA ANTIBODY SCREEN LUM CLASS 1 SAB (10/27/2024 2:40 PM CDT) % PRA 0 11/04/2024 4:03 PM CDT [facility] ([facility]) Class 1 SAB Test Date [id number] 11/04/2024 4:03 PM CDT [facility] ([facility]) Comment: Methodology - Luminex Bead-Based Immunoassay. This test was developed and its performance characteristics determined by the [facility]. It has not been cleared [...] high complexity clinical laboratory testing. CLIA ID# [id number] Performed at: [facility], [address] [place] [phone] Refrigerating Engineer Head: Steven Gonzalez, Ph.D., D([facility]), Blood BLOOD SPECIMEN / Unknown No Charge Blood Draw / Unknown 10/27/2024 2:40 PM CDT 11/01/2024 2:41 PM CDT Alan Davenport MD LAB - BLOOD BANK ORDERABLES F inal Result Performing Organization Address [facility]/ZIP Co de Phone Number [facility]) [address] [place] [address] * (ABNORMAL) PTH INTACT ([facility]) (10/21/2024 1:11 PM CDT) Only the most recent of2 resultswithin the time period is included. PTH Intact 316.8(H) 8.0 - 77.0 pg/mL 10/21/2024 1:56 PM CDT [facility] Blood BLOOD SPECIMEN / Unknown Lab Venipuncture / Unknown 10/21/2024 1:11 PM CDT 10/21/2024 1:23 PM CDT Becky Wilson MD LAB - CHEMISTRY ORDERABLES Fin al Result [facility] [address] [place] [address], [facility] [phone] * LAB MISC TEST (10/21/2024 1:11 PM CDT) Test Name PHOSPHO-TAU 217 PLASMA 10/25/2024 12:29 PM CDT [employer] Test Result See Scanned Report 10/25/2024 12:29 PM CDT [facility] Comment Ref Lab [place] 10/25/2024 12:29 PM CDT [facility] Blood BLOOD SPECIMEN / Unknown Lab Venipuncture / Unknown 10/21/2024 1:11 PM CDT 10/21/2024 1:15 PM CDT Becky Wilson MD LAB SEND OUT Final Result Performing Organization Address City/[facility]/ZIP Co de Phone Number [facility] [address] [place] [address] * MAGNESIUM BLOOD (10/21/2024 1:11 PM CDT) Only the most recent of14 resultswithin the time period is included. [facility] Magnesium 1.6 1.6 - 2.6 mg/dL 10/21/2024 1:49 PM CDT [facility] Blood BLOOD SPECIMEN / Unknown Lab Venipuncture / Unknown 10/21/2024 1:11 PM CDT 10/21/2024 1:20 PM CDT Becky Wilson MD LAB - CHEMISTRY ORDERABLES Fin al Result [address] [address], [facility] [phone] * AMMONIA (10/21/2024 1:11 PM CDT) Ammonia 30 <=72 umol/L 10/21/2024 1:32 PM CDT [facility] Blood BLOOD SPECIMEN / Unknown Lab Venipuncture / Unknown 10/21/2024 1:11 PM CDT 10/21/2024 1:15 PM CDT us Becky Wilson MD LAB - CHEMISTRY ORDERABLES [facility] al Result [facility] [address] [place] [address], [facility] [phone] * CT Head Wo Contrast (10/19/2024 3:03 PM CDT) Only the most recent of4 resultswithin the time period is included. Anatomical Region Laterality Modality Head Computed Tomogra phy 10/19/2024 3:11 PM CDT Impressions 10/19/2024 3:41 PM CDT IMPRESSION: 1.No acute intracranial hemorrhage, territorial infarct, or significant mass effect. Report dictated by Saroj Linda MD, MD (vice president lending). > Dictated by Preforms Laminator I, Raymundo Hanson MD have personally reviewed [...] effect. Report dictated by Saroj Linda MD, (vice president lending). > Dictated by Preforms Laminator I, Raymundo Hanson MD have personally reviewed [...] (Bezet) 509 ms [facility] MUSE Calculated P Gillett 69 degrees [facility] MUSE Calculated R Gillett -63 degrees [facility] MUSE Calculated T Gillett -90 degrees [facility] MUSE Interpretation EKG NORMAL SINUS RHYTHM LEFT ANTERIOR FASCICULAR BLOCK T WAVE ABNORMALITY, CONSIDER INFEROLATERAL ISCHEMIA PROLONGED QT ABNORMAL ECG . Confirmed by DOUG CAGLE MD ([id number]) on 10/23/2024 11:38:28 PM [facility] MUSE 10/19/2024 2:21 PM CDT 10/23/2024 11:38 PM CDT Alfreda Smith PA-C ECG ORDERABLES Edite d Result - Final Performing Organization Address City/[facility]/ZIP Co de Phone Number [facility] MUSE * (ABNORMAL) B-TYPE NATRIURETIC PEPTIDE (10/17/2024 7:33 PM CDT) Only the most recent of3 resultswithin the time period is included. BNP 471(H) <100 pg/mL 10/17/2024 10:07 PM CDT [facility] Comment: A decision threshold of 100 pg/mL [...] - CHEMISTRY ORDERABLES Fi nal Result [facility] [address] [place] [address], [place] [phone] * XR CHEST 1VW PORTABLE (10/09/2024 7:27 [...] MD (vice president lending). > Dictated by Preforms Laminator I, Blake Plasencia MD have personally reviewed [...] MD (vice president lending). > Dictated by Preforms Laminator IBlake MD have personally reviewed and interpreted this examination/study. > Interpreting Provider: Blake Plasencia MD on 10/10/2024 1:17 AM us [employer] [employer] [facility] O RDERABLES Final Result * (ABNORMAL) BLOOD GASES ABBEY + COOX PANEL (10/09/2024 4:39 PM [facility] [place] Only the most recent of2 resultswithin the time period is included. pH Venous 7.41 7.32 - 7.42 pH 10/09/2024 5:04 PM [facility] pO2 Venous 34(L) 35 - 40 mmHg 10/09/2024 5:04 PM [facility] pCO2 Venous 44 40 - 50 mmHg 10/09/2024 5:04 PM [facility] HCO3 Venous 27.9 20 - 30 mmol/L 10/09/2024 5:04 PM [facility] Base Excess Venous 2.9(H) -2.0 - 2.0 mmol/L 10/09/2024 5:04 PM [facility] Oxyhemoglobin Venous 56.8 % 09/18 5:04 PM [facility] Comment:A^Absorbance Error Deoxyhemoglobin (HHB) Venous % 42.6 % 10/09/2024 5:04 PM [facility] Comment:A^Absorbance Error Methemoglobin <0.8 0.0 - 2.0 % 10/09/2024 5:04 PM [facility] Comment:A^Absorbance Error Carboxyhemoglobin 0.6 0.0 - 2.0 % 2024 5:04 PM [facility] Comment:A^Absorbance Error O2 Content Venous 7.7 Interpret within clinical context ml/dL 10/09/2024 5:04 PM [facility] Hemoglobin by COOX 9.6(L) 12.0 - 17.6 g/dL 10/09/2024 5:04 PM [facility] Comment:A^Absorbance Error O2 Saturation Venous 57(L) >=70 % 09/18 5:04 PM [facility] Comment:A^Absorbance Error FI O2 Mixed Venous 21.0 % 2024 5:04 PM [facility] Blood BLOOD SPECIMEN / Unknown Venipuncture / Unknown 10/09/2024 4:39 PM CDT 10/09/2024 4:56 PM CDT Narrative [facility] - 10/09/2024 5:04 PM CDT Carboxyhemoglobin Normal Concentration: Non-smokers: 0-2%; Smokers: 0-9%; Toxic: >20% Anjali Avelar IT ARCHITECTURE [facility] LAB - BLOOD GASES OR DERABLES Final Result Performing Organization Address [facility]/ZIP Co de Phone Number [address] [address], [facility] [phone] * PHOSPHORUS BLOOD (10/09/2024 4:39 PM CDT) Only the most recent of8 resultswithin the time period is included. Phosphorus 4.9 2.8 - 5.1 mg/dL 10/09/2024 5:29 PM CDT [facility] Blood BLOOD SPECIMEN / Unknown Venipuncture / Unknown 10/09/2024 4:39 PM CDT 10/09/2024 4:58 PM CDT Anjali Avelar [facility] - CHEMISTRY ORDE RABLES Final Result Performing Organization Address [facility]/ZIP Co de Phone Number [address] [address], [facility] [phone] * (ABNORMAL) URINALYSIS REFLEX MICROSCOPIC REFLEX CULTURE (10/07/2024 6:16 PM CDT) Color UA Yellow Yellow, Straw 10/07/2024 6:39 PM CDT [facility] Clarity UA Ex. Turbid(A) Clear 10/07/2024 6:39 PM CDT [facility] Glucose UA Normal Normal 10/07/2024 6:39 PM CDT [facility] Bilirubin UA Negative Negative 10/07/2024 6:39 PM CDT [facility] Ketone UA Negative Negative 10/07/2024 6:39 PM CDT [facility] Specific Menan UA 1.015 1.005 - 1.030 10/07/2024 6:39 PM CDT [facility] Blood UA 3+(A) Negative 10/07/2024 6:39 PM [facility] pH UA 6.0 5.0 - 8.0 10/07/2024 6:39 PM [facility] Protein UA 2+(A) Negative 10/07/2024 6:39 PM [facility] Urobilinogen UA Normal Normal mg/dL 10/07/2024 6:39 PM [facility] Nitrite UA Negative Negative 10/07/2024 6:39 PM [facility] Leukocyte Esterase UA 500 MOLLY/uL(A) Negative 10/07/2024 6:39 PM [facility] RBC UA 51-100(A) 0 - 5 # /hpf 10/07/2024 6:39 PM [facility] WBC UA >100(A) 0 - 5 # /hpf 10/07/2024 6:39 PM [facility] Bacteria UA 2+(A) None Seen 10/07/2024 6:39 PM [facility] Squamous Epithelial Cells None Seen 0 - 5 /hpf 10/07/2024 6:39 PM [facility] Transitional Epithelial Cell UA 0-2(A) None Seen /HPF 10/07/2024 6:39 PM [facility] Budding Yeast Moderate(A) None seen /hpf 10/07/2024 6:39 PM [facility] Reflex Status Culture to follow 10/07/2024 6:39 PM [facility] Urine URINE SPECIMEN OBTAINED VIA [employer] [facility]IN[facility] CATHETER / Unknown Collection / Unknown 10/07/2024 6:16 PM CDT 10/07/2024 6:19 PM CDT [facility] - 10/07/2024 6:39 PM CDT us Richard Sylvester MD LAB - URINALYSIS ORDERABLES Kenna l Result [facility] [address] [place] [phone], [facility] [phone] * (ABNORMAL) CULTURE URINE (10/07/2024 6:16 PM CDT) Culture Urine 50,000-100,000 CFU/mL Klebsiella pneumoniae(A) MUSHTAQ 10/09/2024 5:54 AM CDT [facility] Urine URINE SPECIMEN OBTAINED VIA [facility]HE[facility] / Unknown Collection / Unknown 10/07/2024 6:16 PM CDT 10/07/2024 6:19 PM CDT Narrative [facility] - 10/09/2024 5:54 AM CDT [...] LAB - MICROBIOLOGY ORDERABLES Fi nal Result [facility] [address] [place] [address], [facility] [phone] * VAS Arterial Multilevel Le (10/05/2024 12:24 PM CDT) Anatomical Region Laterality Modality Intravascular Ul trasound 10/05/2024 11:3 4 AM CDT Narrative Procedure Note Elroy Holcomb MD - 10/05/2024 us Guy Messina MD VASCULAR LAB ORDERABLES Edit ed Result - Final * (ABNORMAL) HEMOGLOBIN A1C (09/25/2024 5:06 AM CDT) Hemoglobin A1c 5.8(H) <=5.6 % 09/25/2024 8:19 AM CDT [facility] Estimated Average Glucose 120 mg/dL 09/25/2024 8:19 AM CDT [facility] Comment: HbA1c Interpretation: Normal : < 5.7% Pre-diabetes: 5.7-6.4% Diabetes: Equal to or greater than 6.5% Test results diagnostic of diabetes should be repeated for confirmation. Treatment target values recommended by ADA and other clinical organizations should be used to evaluate metabolic control in patients. Reference: [place] [employer], Standards of Care in Diabetes [...] LAB - CHEMISTRY ORDERABLES F inal Result [facility] [address] [place] [address], [place] [phone] * (ABNORMAL) RENAL FUNCTION PANEL (09/24/2024 7:53 PM CDT) Only the most recent of3 resultswithin the time period is included. BUN 42(H) 7 - 26 mg/dL 09/24/2024 8:47 PM [facility] Creatinine 12.22(H) 0.71 - 1.16 mg/dL 09/24/2024 8:47 PM [facility] Sodium 136 136 - 145 mmol/L 09/24/2024 8:47 PM [facility] Potassium 3.9 3.5 - 4.5 mmol/L 09/24/2024 8:47 PM [facility] Chloride 97(L) 98 - 107 mmol/L 09/24/2024 8:47 PM [facility] CO2 24 22 - 29 mmol/L 09/24/2024 8:47 PM [facility] Glucose 93 70 - 99 mg/dL 09/24/2024 8:47 PM [facility] Albumin 1.8(L) 3.4 - 5.0 g/dL 09/24/2024 8:47 PM [facility] Calcium 8.4 8.4 - 10.2 mg/dL 09/24/2024 8:47 PM [facility] Phosphorus 7.0(H) 2.8 - 5.1 mg/dL 09/24/2024 8:47 PM [facility] Anion Gap 15 6 - 16 09/24/2024 8:47 PM [facility] BUN/Creatinine Ratio 3(L) 7 - 23 09/24/2024 8:47 PM [facility] Osmolality Calculated 292 275 - 295 mOsm/kg 09/24/2024 8:47 PM [facility] eGFR by CKD-EPI 4(L) >=90 mL/min/1.7 3 m2 09/24/2024 8:47 PM [facility] Comment:Estimated Glomerular Filtration Rate (eGFR) calculated using the CKD-EPI Creatinine Equation (2020), per the National Kidney Foundation and [place] [employer]ph[employer] recommendations. Blood BLOOD SPECIMEN / Unknown Lab Venipuncture / Unknown 09/24/2024 7:53 PM CDT 09/24/2024 8:15 PM T us Guy Messina MD LAB - CHEMISTRY ORDERABLES F inal Result [address] [address], [facility] [phone] * TSH REFLEX FREE T4 (09/24/2024 12:02 PM CDT) Pathologist [facility] TSH 1.567 0.350 - 4.940 uIU/mL 09/24/2024 12:57 PM CDT [facility] Blood BLOOD SPECIMEN / Unknown 09/24/2024 12:02 PM CDT 09/24/2024 12:18 PM CDT Alexis Rodrigez III, MD LAB - CHEMISTRY ORDERAB LES Final Result Performing Organization Address [facility] Co de Phone Number [address] [address], [facility] [phone] * (ABNORMAL) VITAMIN B1 (09/24/2024 12:02 PM CDT) Pathologist [facility] Vitamin B1 Whole Blood 205(H) 70 - 180 nmol/L 09/27/2024 7:16 PM CDT [facility] ([facility]) Comment: INTERPRETIVE INFORMATION: Vitamin B1, Whole Blood This assay measures the concentration of thiamine diphosphate (TDP), the primary active form of vitamin B1. Approximately 90 percent of vitamin B1 present in whole blood is TDP. Thiamine and thiamine monophosphate, which comprise the remaining 10 percent, are not measured. This test was developed and its performance characteristics determined by [facility]. It has not been cleared or approved by the US Food and Drug Administration. This test was performed in a CLIA certified laboratory and is intended for clinical purposes. Performed By: [facility] [address] [place] [address] [employer] Tester: Mk Egan MD, PhD CLIA Number: [id number] Blood BLOOD SPECIMEN / Unknown 09/24/2024 12:02 PM CDT 09/24/2024 12:11 PM CDT us Alexis Rodrigez III, MD LAB - CHEMISTRY ORDERAB LES Final Result Performing Organization Address City/[facility] Co de Phone Number [facility]) [address] [place] [phone], [facility] * (ABNORMAL) VITAMIN B12 (09/24/2024 12:02 PM CDT) Vitamin B12 1,151(H) 213 - 816 pg/mL 09/24/2024 12:57 PM CDT [facility] Blood BLOOD SPECIMEN / Unknown 09/24/2024 12:02 PM CDT 09/24/2024 12:18 PM CDT us Alexis Rodrigez III, MD LAB - CHEMISTRY ORDERAB LES Final Result [address] [address], [facility] [phone] * (ABNORMAL) TROPONIN-I HIGH SENSITIVE (09/24/2024 5:08 AM CDT) Pathologist [facility] Troponin I High Sensitive 83(H) <=35 ng/L 09/24/2024 6:10 AM CDT [facility] Blood BLOOD SPECIMEN / Unknown Lab Venipuncture / Unknown 09/24/2024 5:08 AM CDT 09/24/2024 5:28 AM CDT us Jennifer Winn MD LAB - CHEMISTRY ORDERABLES F inal Result Performing Organization Address [facility]/ZIP Co de Phone Number [address] [address], [place] [phone] * CT Lumbar Spine Wo Contrast (09/23/2024 [...] lending) 09/23/2024 5:45 PM. > Dictated by Preforms Laminator I, Jana Clark MD have personally reviewed [...] Reason For Exam: r/o bleed, fx (accession [id number]), r/o fx (accession [id number]), r/o fx (accession [id number]), r/o fx (accession [id number]) Technologist Note: None. Additional: 69 year old [...] Reason For Exam: r/o bleed, fx (accession [id number]), r/o fx (accession [id number]), r/o fx (accession [id number]), r/o fx (accession [id number]) Technologist Note: None. Additional: 69 year old [...] lending) 09/23/2024 5:45 PM. > Dictated by Preforms Laminator I, Jana Clark MD have personally reviewed [...] lending) 09/23/2024 5:45 PM. > Dictated by Preforms Laminator I, Jana Clark MD have personally reviewed [...] Reason For Exam: r/o bleed, fx (accession [id number]), r/o fx (accession [id number]), r/o fx (accession [id number]), r/o fx (accession [id number]) Technologist Note: None. Additional: 69 year old [...] Reason For Exam: r/o bleed, fx (accession [id number]), r/o fx (accession [id number]), r/o fx (accession [id number]), r/o fx (accession [id number]) Technologist Note: None. Additional: 69 year old [...] lending) 09/23/2024 5:45 PM. > Dictated by Preforms Laminator I, Jana Clark MD have personally reviewed and interpretedthis examination/study. > Interpreting Provider: Jana Clark MD on 09/23/2024 6:29 PM Moon Lewsi PA-C CT ORDERABLES Final Result * CT [...] lending) 09/23/2024 5:45 PM. > Dictated by Preforms Laminator I, Jana Clark MD have personally reviewed and interpreted this examination/study. > Interpreting Provider: Jana Clrak MD on 09/23/2024 6:29 PM Narrative 09/23/2024 [...] Reason For Exam: r/o bleed, fx (accession [id number]), r/o fx (accession [id number]), r/o fx (accession [id number]), r/o fx (accession [id number]) Technologist Note: None. Additional: 69 year old [...] Reason For Exam: r/o bleed, fx (accession [id number]), r/o fx (accession [id number]), r/o fx (accession [id number]), r/o fx (accession [id number]) Technologist Note: None. Additional: 69 year old [...] lending) 09/23/2024 5:45 PM. > Dictated by Preforms Laminator I, Jana Clark MD have personally reviewed [...] MD, (vice president lending). > Dictated by Preforms Laminator I, Nicole Bernabe MD have personally reviewed [...] MD, (vice president lending). > Dictated by Preforms Laminator I, Nicole Bernabe MD have personally reviewed and interpreted this examination/study. > Interpreting Provider: Nicole Bernabe MD on 09/24/2024 9:17 AM us Moon Lewis PA-C DIAGNOSTIC IMAGING ORDERABLES F inal Result * (ABNORMAL) C-REACTIVE PROTEIN (09/23/2024 4:52 PM CDT) Only the most recent of2 resultswithin the time period is included. C-Reactive Protein 1.6(H) <=0.5 mg/dL 09/23/2024 5:42 PM CDT [facility] Blood BLOOD SPECIMEN / Unknown Venipuncture / Unknown 09/23/2024 4:52 PM CDT 09/23/2024 4:56 PM CDT us Moon Lewis PA-C LAB - CHEMISTRY ORDERABLES Kenna l Result [facility] [address] [place] [address], [place] [phone] * (ABNORMAL) ERYTHROCYTE SEDIMENTATION RATE (09/23/2024 4:52 PM CDT) Only the most recent of2 resultswithin the time period is included. [facility] Erythrocyte Sedimentation Rate Westergren 116(H) 0 - 20 MM/HR 09/23/2024 5:21 PM CDT [facility] Blood BLOOD SPECIMEN / Unknown Venipuncture / Unknown 09/23/2024 4:52 PM CDT 09/23/2024 5:05 PM CDT us Moon Lewis PA-C LAB - HEMATOLOGY ORDERABLES Fin al Result [facility] [address] [place] [address], [place] [phone] * (ABNORMAL) DIFFERENTIAL MANUAL (09/23/2024 4:52 PM CDT) Only the most recent of3 resultswithin the time period is included. [facility] Neutrophil % 78(H) 41 - 74 % 09/[facility]24 [facility] Lymphocyte % 10(L) 17 - 47 % 09/23/2024 5:33 PM [facility] Monocyte % 10 3 - 11 % 09/23/2024 5:33 PM [facility] Eosinophil % 1 0 - 7 % 09/23/2024 5:33 PM [facility] Metamyelocyte % 1(H) 0% % 5:33 PM [facility] Neutrophil Absolute 8.66(H) 1.60 - 7.50 x10E9/L 09/23/2024 5:33 PM [facility] Lymphocyte Absolute 1.11 1.00 - 4.40 x10E9/L 09/23/2024 5:33 PM [facility] Monocyte Absolute 1.11(H) 0.15 - 1.00 x10E9/L 09/23/2024 5:33 PM [facility] Eosinophil Absolute 0.11 0.00 - 0.60 x10E9/L 09/23/2024 5:33 PM [facility] RBC Morphology REVIEWED 09/23/2024 5:33 PM [facility] Microcytosis MODERATE(A) (none) 09/23/2024 5:33 PM [facility] Blood BLOOD SPECIMEN / Unknown Venipuncture / Unknown 09/23/2024 4:52 PM CDT 09/23/2024 5:05 PM CDT us Moon Lewis PA-C LAB - HEMATOLOGY ORDERABLES Fin al Result [facility] [address] [place] [phone], [facility] [phone] * (ABNORMAL) CBC W/O DIFFERENTIAL (09/16/2024 1:01 AM CDT) Only the most recent of10 resultswithin the time period is included. WBC 9.3 4.0 - 10.7 x10E9/L 09/16/2024 1:43 AM [facility] RBC Count 3.37(L) 4.30 - 5.80 x10E12/L 09/16/2024 1:43 AM [facility] Hemoglobin 9.5(L) 13.3 - 17.5 g/dL 09/16/2024 1:43 AM [facility] Hematocrit 28.3(L) 38.7 - 51.1 % 09/16/2024 1:43 AM [facility] MCV 84.0 80.0 - 98.0 fL 09/16/2024 1:43 AM [facility] MCH 28.2 26.7 - 33.6 pg 09/16/2024 1:43 AM [facility] MCHC 33.6 31.7 - 36.3 g/dL 09/16/2024 1:43 AM [facility] RDW-CV 15.7(H) 11.3 - 14.8 % 09/16/2024 1:43 AM [facility] Platelet Count 205 150 - 420 x10E9/L 09/16/2024 1:43 AM CDT [facility] MPV 10.3 7.8 - 11.4 fL 09/16/2024 1:43 AM CDT [facility] Blood BLOOD SPECIMEN / Unknown Lab Venipuncture / Unknown 09/16/2024 1:01 AM CDT 09/16/2024 1:40 AM CDT us Alexis Rodrigez III, MD LAB - HEMATOLOGY ORDERA BLES Final Result Performing Organization Address City/[facility]/ZIP Co de Phone Number [address] [address], [place] [phone] * VANCOMYCIN LEVEL RANDOM (09/15/2024 4:10 PM CDT) Only the most recent of3 resultswithin the time period is included. Vancomycin Random 31.2 Therapeutic Ranges not established for random specimens ug/mL 09/15/2024 6:00 PM CDT [facility] Blood BLOOD SPECIMEN / Unknown Lab Venipuncture / Unknown 09/15/2024 4:10 PM CDT 09/15/2024 4:51 PM CDT Narrative [facility] - 09/15/2024 6:00 PM CDT See institution protocol. us Aureliano Pierce MD LAB - CHEMISTRY ORDERAB LES Final Result Performing Organization Address [facility]/ZIP Co de Phone Number [address] [address], [place] [phone] * LACTIC ACID BLOOD (09/14/2024 3:32 PM CDT) Only the most recent of4 resultswithin the time period is included. Lactic Acid-Stat 2.0 <=2.0 mmol/L 09/14/2024 4:17 PM CDT [facility] Blood BLOOD SPECIMEN / Unknown Lab Venipuncture / Unknown 09/14/2024 3:32 PM CDT 09/14/2024 3:51 PM CDT us Alexis Rodrigez III, MD LAB - CHEMISTRY ORDERAB LES Final Result Performing Organization Address City/[facility]/ZIP Co de Phone Number [address] [address], [facility] [phone] * (ABNORMAL) HGB HCT PANEL (09/14/2024 1:24 PM CDT) Only the most recent of2 resultswithin the time period is included. Hemoglobin 8.7(L) 13.3 - 17.5 g/dL 09/14/2024 1:41 PM CDT [facility] Hematocrit 25.6(L) 38.7 - 51.1 % 09/14/2024 1:41 PM CDT [facility] Blood BLOOD SPECIMEN / Unknown Venipuncture / Unknown 09/14/2024 1:24 PM CDT 09/14/2024 1:30 PM CDT us Alexis Rodrigez III, MD LAB - HEMATOLOGY ORDERA BLES Final Result Performing Organization Address City/[facility]/ZIP Co de Phone Number [address] [address], [facility] [phone] * PATHOLOGY TISSUE (09/14/2024 11:45 AM CDT) Case Report Surgical Pathology Report Case: [id number] Authorizing Provider: Elroy Holcomb MD Collected: 09/14/2024 11:45 AM Ordering Location: [facility] Received: 09/14/2024 12:47 PM Pathologist: Charmaine Myrick MD Specimen: Toe, Left, Left Great Toe 09/16/2024 11:40 AM CDT [facility] Final Diagnosis Toe, left great, amputation (A): - Skin ulceration and necrosis - Acute osteomyelitis - Bone margin negative for acute inflammation - Skin and soft tissue margin appears viable 09/16/2024 11:40 AM CDT [facility] at 1140 CDT Microscopic Description and Comment Microscopic examination substantiates the diagnosis. 09/16/2024 11:40 AM CDT [facility] Clinical History The patient is a 69-year-old man with first toe dry gangrene and history of PAD. 09/16/2024 11:40 AM [facility] Gross Description The requisition [...] hemorrhage. There are no additional gross lesions. Supervisor Insecticide sections are submitted as follows: A1-skin and soft tissue to resection margin, medial and dorsal surfaces A2-bony resection margin, decalcified A3-partial proximal cross-section with surrounding mummification, decalcified IKD 09/16/2024 11:40 AM [facility] Pathologist Location at [facility] 09/16/2024 11:40 AM [facility] Disclaimer The performance characteristics of all immunohistochemical and indirect immunofluorescence stains (if any) cited in this report were determined by the Histopathology Laboratory of [facility]. Some of these tests were developed [...] the attending (teaching) pathologist. 09/16/2024 11:40 AM [facility] Embedded Images 09/16/2024 11:40 AM [facility] Amputation, Traumatic (Gross Only) (Toe, Left) 09/14/2024 11:45 AM CDT 09/14/2024 12:47 PM CDT Comment:Pre-op diagnosis: Toe gangrene (HCC) [I96] us Elroy Holcomb MD LAB - PATHOLOGY/CYTOLOGY O RDERABLES Final Result [facility] [id number] [place] [address], [facility] [phone] * Peripheral Nerve Block (09/14/2024 10:38 AM [...] fungus isolated MUSHTAQ 10/11/2024 8:05 AM CDT [facility] Fungus Stain No yeast or hyphae seen 10/11/2024 8:05 AM CDT [facility] Microbiology PERITONEAL DIALYSATE SPECIMEN / Unknown Collection / Unknown 09/13/2024 8:08 PM CDT 09/13/2024 8:10 PM CDT us Alexis Rodrigez III, MD LAB - MICROBIOLOGY ORDE RABLES Final Result [facility] [address] [place] [address], [facility] [phone] * DIFFERENTIAL MANUAL FLUID (09/13/2024 8:08 PM CDT) Fluid Source Peritoneal 09/13/2024 9:03 PM CDT [facility] Body Fluid Total Cell Count 100 x10E6/L 09/13/2024 9:03 PM CDT [facility] Neutrophils Fluid Percent 11 % 09/13/2024 9:03 PM CDT [facility] Lymphocytes Fluid Percent 6 % 09/13/2024 9:03 PM CDT [facility] Macrophages Fluid Percent 79 % 09/13/2024 9:03 PM CDT [facility] Mesothelial Cells Fluid Percent 4 % 09/13/2024 9:03 PM CDT [facility] Fluid PERITONEAL FLUID / Unknown Collection / Unknown 09/13/2024 8:08 PM CDT 09/13/2024 8:10 PM CDT Narrative [facility] - 09/13/2024 9:03 PM CDT No reference ranges established for body fluid differential cell counts. The test results must be integrated into the clinical context for interpretation. Alexis Rodrigez III, MD LAB - BODY FLUID ORDERA BLES Final Result [facility] [address] [place] [address], [facility] [phone] * CULTURE FLUID+GRAM STAIN (09/13/2024 8:08 PM CDT) Culture No growth MUSHTAQ 09/17/2024 12:38 AM CDT [facility] Gram Stain Light Polymorphonuclear cells 09/17/2024 12:38 AM CDT [facility] Gram Stain No organisms seen 025 12:38 AM CDT [facility] Other PERITONEAL DIALYSATE SPECIMEN / Unknown Collection / Unknown 09/13/2024 8:08 PM CDT 09/13/2024 8:10 PM CDT Alexis Rodrigez III, MD LAB - MICROBIOLOGY PK ZENG Final Result Performing Organization Address City/[facility]/ZIP Co de Phone Number [facility] [address] [place] [address], [facility] [phone] * CULTURE ANAEROBE (09/13/2024 8:08 PM CDT) Culture No anaerobic organisms isolated MUSHTAQ 09/19/2024 8:26 AM CDT [facility] Microbiology PERITONEAL DIALYSATE SPECIMEN / Unknown Collection / Unknown 09/13/2024 8:08 PM CDT 09/13/2024 8:11 PM CDT Alexis Rodrigez III, MD LAB - MICROBIOLOGY PK ZENG Final Result [facility] [address] [place] [address], [facility] [phone] * CELL COUNT W DIFFERENTIAL FLUID (09/13/2024 8:08 PM CDT) Fluid Source Peritoneal 09/13/2024 9:03 PM CDT [facility] Fluid Appearance CLEAR 09/13/2024 9:03 PM CDT [facility] Fluid Color YELLOW 09/13/2024 9:03 PM CDT [facility] Total Nucleated Cells Fluid 279 Reference Range Not Established x10E6/L 09/13/2024 9:03 PM CDT [facility] RBC Count Fluid <2,000 Reference Range Not Established x10E6/L 09/13/2024 9:03 PM CDT [facility] Fluid PERITONEAL FLUID / Unknown Collection / Unknown 09/13/2024 8:08 PM CDT 09/13/2024 8:10 PM CDT Narrative [facility] - 09/13/2024 9:03 PM CDT No reference ranges established for body fluid cell counts. Any reference ranges provided are derived from published literature. The test results must be integrated into the clinical context for interpretation. us Alexis Rodrigez III, MD LAB - BODY FLUID ORDERA BLES Final Result [facility] [address] [place] [address], [facility] [phone] * VAS Bilateral Venous Duplex Le (09/13/2024 4:34 PM CDT) Anatomical Region Laterality Modality Lower Extremity Ultrasound 09/13/2024 4:18 PM CDT Narrative Procedure Note Llait Castanon MD - 09/13/2024 us Alexis Rodrigez III, MD VASCULAR LAB ORDERABLES Edited Result - Final * SARS-COV-2 (COVID-19) RAPID (09/13/2024 6:02 AM CDT) COVID-19 PCR Not detected Not detected 09/14/19 25 6:36 AM CDT [facility] Microbiology SPECIMEN FROM NASOPHARYNGEAL STRUCTURE / Unknown Collection / Unknown 09/13/2024 6:02 AM CDT 09/13/2024 6:04 AM CDT Narrative [facility] - 09/13/2024 6:36 AM CDT The Cepheid [...] LAB - MICROBIOLOGY ORDERABLE S Final Result [address] [address], [facility] [phone] * TRANSFUSE RED BLOOD CELL LEUKOREDUCED UNIT(S) [...] Sera Chowdhury Dr, MD (vice president lending). ITerry MD have [...] Chowdhury Dr, MD (vice president lending). I, Lien. Constantino Ramos MD have personally reviewed and interpreted this examination/study. > Interpreting Provider: Terry Ramos MD on 09/13/2024 9:42 AM Yuriy Lopez MD CT ORDERABLES Final Result * PREPARE (CROSSMATCH) RBC UNIT(S), 1 Units (09/12/2024 11:30 PM CDT) Unit Description AS1 LR PRBC [facility] Unit ABO O [facility] Unit Rh NEG [facility] Product Number R43 [facility] B LO[facility] B[facility] Unit Donor # [id number] [facility] Unit Status transfused [facility] B[facility] OD [facility] Product Code [id number] [facility] OD BANK LAB Blood Type Barcode 9500 [facility] Expiration Date [facility] B[facility]OD [facility] Blood Bank BLOOD SPECIMEN / Unknown 09/12/2024 11:30 PM CDT 09/12/2024 11:37 PM CDT Result [facility] Yuriy Lopez MD LAB - BLOOD BANK ORDERABLES Final Result Performing Organization Address City/[facility]/ZIP Co de Phone Number [facility] [address] [place] [address], [facility] [phone] * TYPE + SCREEN PANEL (09/12/2024 11:30 PM CDT) Antibody Screen NEG 12:16 AM CDT [facility] ABO Rh O NEG 09/13/2024 12:16 AM CDT [facility] Blood Bank BLOOD SPECIMEN / Unknown Venipuncture / Unknown 09/12/2024 11:30 PM CDT 09/12/2024 11:37 PM CDT Yuriy Lopez MD LAB - BLOOD BANK ORDERABLES Final Result [facility] [address] [place] [address], [facility] [phone] * CULTURE BLOOD (09/12/2024 10:00 PM CDT) Only the most recent of4 resultswithin the time period is included. Culture No growth day 5 MUSHTAQ 09/18/2024 1:30 AM CDT [facility]CRO[facility] Blood PERIPHERAL BLOOD / Unknown Venipuncture / Unknown 09/12/2024 10:00 PM CDT 09/12/2024 10:21 PM CDT Yuriy Lopez MD LAB - MICROBIOLOGY ORDERABLE S Final Result [facility]CRO[facility] [address] [place] [address], [facility] [phone] * VAS Bilateral Venous Mapping (09/07/2024 2:24 [...] thickening. Report dictated by Freddie Durham MD, (Preforms Laminator). I, Junior Hurley MD have personally reviewed [...] thickening. Report dictated by Freddie Durham MD, (Preforms Laminator). I, Junior Hurley MD have personally reviewed and interpreted this examination/study. > Interpreting Provider: Junior Hurley MD on 56:26 AM us Charmaine Khalil MD CT ORDERABLES Final Result * (ABNORMAL) POTASSIUM WHOLE BLD (09/01/2024 3:54 PM CDT) Potassium Whole Blood 3.1(L) 3.5 - 5.5 mmol/L 09/01/2024 4:05 PM CDT [facility] Blood WHOLE BLOOD SPECIMEN / Unknown Venipuncture / Unknown 09/01/2024 3:54 PM CDT 09/01/2024 3:57 PM CDT us Jaqueline Correa Mars IT ARCHITECTURE CONSULTANT-GROUNDS FOREMAN LAB - CHEMISTRY ORDERABL ES Final Result [facility] [address] [place] [address], [facility] [phone] * CCL STAGED PERC CORONARY INTERVENTION, CCL [...] continuing DAPT Cardiology clinic f/u Jaqueline Crews IT ARCHITECTURE CONSULTANT-GROUNDS FOREMAN CV CARDIAC CATH CUPID OR OCS Final Result * (ABNORMAL) IRON + TRANSFERRIN PANEL (08/19/2024 1:41 AM CDT) Pathologist [facility] Iron 40(L) 50 - 175 ug/dL 08/19/2024 2:17 AM CDT [facility] Transferrin 116(L) 174 - 382 mg/dL 08/19/2024 2:17 AM CDT [facility] Transferrin Saturation % 28 16 - 50 % 08/19/2024 2:17 AM CDT [facility] TIBC Calculated 145(L) 240 - 450 ug/dL 08/19/2024 2:17 AM CDT [facility] Blood BLOOD SPECIMEN / Unknown Lab Venipuncture / Unknown 08/19/2024 1:41 AM CDT 08/19/2024 2:01 AM CDT Hannah Goodman MD LAB - CHEMISTRY ORDERABLES F inal Result Performing Organization Address City/[facility]/ZIP Co de Phone Number [address] [address], [place] [phone] * (ABNORMAL) FERRITIN (08/19/2024 1:41 AM CDT) Ferritin 560(H) 22 - 275 ng/mL 08/19/2024 2:35 AM CDT [facility] Blood BLOOD SPECIMEN / Unknown Lab Venipuncture / Unknown 08/19/2024 1:41 AM CDT 08/19/2024 2:01 AM CDT Hannah Goodman MD LAB - CHEMISTRY ORDERABLES F inal Result Performing Organization Address [facility] Co de Phone Number [address] [address], [place] [phone] * VITAMIN D 25-HYDROXY (08/19/2024 1:23 AM CDT) Vitamin D, 25 Hydroxy 36.2 30.0 - 80.0 ng/mL 08/19/2024 2:24 AM CDT [facility] Comment: The recommendations for 25-Hydroxy Vitamin D [...] F inal Result Performing Organization Address City/[facility]/ZIP Co de Phone Number [address] [address], [place] [phone] * CCL PERIPHERAL ANGIOGRAM (08/18/2024 2:33 PM CDT) Anatomical Region Laterality Modality X-Ray Angiograph y Narrative 08/19/2024 2:24 PM CDT Left leg angiogram showed left AT severe diffuse disease with multiple subtotal occlusion and left PT severe diffuse disease with LINE TENDER of distal PT without clear reconstitution. Successful [...] 0.018 CXI microcatheter with multiple wires(Command 18/command 14/Sports Recruiter 200) to get to great toe branch of dorsalis pedis using shovel mechanic [address]. - the AT-DP lesion was dilated with balloons mentioned in figure. - We turn our attention to PT. We crossed the PT LINE TENDER with 0.018 CXI microcatheter with multiple wires (command 18, command 14, Sports Recruiter 200) and able to go to lateral [...] using angiography. Left Posterior Tibial: Ost L VEGETABLE FARM WORKER to Dist L VEGETABLE FARM WORKER lesion is 100% stenosed. Stenosis was measured [...] 10% residual stenosis post intervention. Ost L VEGETABLE FARM WORKER to Dist L VEGETABLE FARM WORKER lesion: Angioplasty: Angioplasty independent of stent deployment [...] of Plavix. -recommend close follow up with mortgage loan interviewer and follow up with me in clinic with JOSIANE/TBI. Hannah Goodman MD CV INVASIVE VASCULAR AND IR CUPID PROC Final Result * ACT LR - POCT ([facility]) (08/18/2024 2:08 PM CDT) Only the most recent of4 resultswithin the time period is included. [facility] ACT LR 231 See result comments sec 08/19/2024 9:02 AM CDT [facility] Blood BLOOD SPECIMEN / Unknown 08/18/2024 2:08 PM CDT 08/19/2024 9:02 AM CDT Narrative [facility] - 08/19/2024 9:02 AM CDT ACT-LR Therapeutics ranges are: Cardiac labor arbitrator hearing office = 200-300 seconds Sheath pull = ACT [...] LAB - COAGULATION ORDERABLES Final Result [facility] [address] [place] [address], [place] [phone] * HEPATITIS C ANTIBODY (06/16/2024 4:15 PM CDT) [facility] Hepatitis C Antibody Non-react sylvie Non-reac tive 06/16/2024 5:50 PM CDT [facility] Comment:Hepatitis C Antibody screen indicates no serologic [...] Alan Davenport MD LAB - CHEMISTRY ORDERABLES [facility] Result [facility] [address] [place] [address], [facility] [phone] from Last 3 Months or Most Recently Relevant to Health Maintenance Insurance AETNA AETNA MEDICARE [facility] AETNA MEDICARE ADV * Guarantor: GRACE INTERIANO Account Type Relation to Patient Date of Phone Billing Address Personal/Family [facility] [place] [address] * Guarantor: GRACE INTERIANO Account Type Relation to Patient Date of Phone Billing Address Personal/Family [facility] [place] [address] [facility] [place] [address] * Guarantor: GRACE INTERIANO Account Type Relation to Patient Date of Phone Billing Address Personal/Family Spouse [facility] [place] [address] Advance Directives * Full Code (Latest Code [...] 3:16 PM 08/19/2024 4:36 PM Care Teams Wink Cutter Operator Relationship Specialty Start Date End Date Jeff Strickland MD [address] [place] [address] PCP - General 03/05/18 [place] [address] [address] Orthopedic Surgery 03/28/17
--- OUTSIDE RECORDS SUMMARY | 2024-11-18 20:39 | XMS_ITS | Clinical Summary ---
Author Organization [facility] Address [address] [place] [address] Care Team Providers Care Spanish Teacher Name Role Phone Jeff Strickland MD [...] mouth daily. Active nystatin-triamc inolone (MYCOLOG II) 659638-8.1 UNIT/GM-% Cream 5 Active ondansetron (ZOFRAN-ODT) 4 [...] Telephone [facility] - Cardiology [facility] [address] [place] [address] Suly Smith APRN, TAX PREPARER 10/15/2024 Telephone [facility] Cardiology [facility] [address] [place] [address] Hannah Goodman MD 10/14/2024 2:40 PM CDT Clinical Support [facility] Cardiology [facility] [address] [place] [phone] NurseAsim Cardiology Dressing change (Primary Dx) Discharge [...] st Contact Info) Description 04/11/2025 11:30 AM POWERHOUSE ENGINEER Office Visit [facility] - Cardiology - [place] [address] [place] [address] He Maylin, DO 2 [facility] [address] [address] Health Maintenance Due Date Last Done Comments [...] topic Insurance MEDICARE C AETNA Care Teams Spanish Teacher Relationship Specialty Start Date End Date Jeff Strickland MD [address] [place] [address] PCP - General Family Medicine 10/14/24
--- OUTSIDE RECORDS SUMMARY | 2024-11-18 20:40 | XMS_ITS | Encounter Summary ---
Author Organization [facility] Address [address] [place] [address] Care Team Providers Care Credit Professional Name Role Phone Deandre Bojorquez MD Unavailable [phone] Jeff Strickland MD Primary Care Provider [phone] Reason for Visit * Reason Onset Date Comments Post-Op 09/03/2024 Encounter Details Date Type Department Care Team (Late st Contact Info) Description 09/03/2024 Telephone [facility] - Cardiology [address] [facility], [facility] [address] [place] [address] Hannah Goodman MD [address] [facility] [address] [place] [address] Post-Op Social History Tobacco Use Types Packs/Day [...] and heating? Not hard at all 09/04/2024 [facility] of Occupat ional Health - Occupational Stress [...] time in the past 12 m [facility], were you homeless or living in a assisted (including now)? No 09/04/2024 Sex and Gender Information Value Date Recorded Sex Assigned at Male 07/02/2021 2:37 PM CDT Legal Sex Male 10:14 PM CARBONIZER Gender Identity Male 07/02/2021 2:37 PM CDT [...] confused post op Patient Call Back number: [phone] documented in this encounter Plan of Treatment Upcoming Encounters Date Type Department Care Team (Late st Contact Info) Description 11/23/2024 10:00 AM CDT Appointment [facility] [address] IVR [address] [place] [address] Elroy Holcomb MD [address] [place] [address] 2L [place] [address] 11/24/2024 9:05 AM CDT Hospital Encounter [facility] [address] RITO OP [address] [place] [address] Elroy Holcomb MD [address] [place] [address] 2L [place] [address] Surgery General 11/24/2024 9:05 AM CDT - 11/24/2024 11:20 AM CDT Surgery [facility] [address] RITO OP [address] [place] [address] Elroy Holcomb MD [address] [place] [address] 2L [place] [address] Bilateral first toe debridement 12/06/2024 10:40 AM CDT Office Visit [facility] - Endocrinology [address] [place] [address], [place] [phone] Maribn Flores MD [address] [place] [address] DIV [place] [address] Niraj Turner MD [address] [place] [address] 2L [place] [address] 2025 1:00 PM CARBONIZER Office Visit [facility] - Neurology [facility]5 [facility], [place] [address] Becky Wilson MD [address] [place] [phone] Scheduled Procedures Name Priority Associated Diagnoses Date/Ti [...] documented as of this encounter Care Teams Credit Professional Relationship Specialty Start Date End Date Jeff Strickland MD [address] [place] [address] PCP - General 03/05/18 [place] [address] [address] Orthopedic Surgery 03/28/17 documented as of this encounter
--- OUTSIDE RECORDS SUMMARY | 2024-11-18 20:40 | XMS_ITS | Encounter Summary ---
Author Organization [facility] Address [employer] [place] [address] Care Team Providers Care Staging Technician Name Role Phone Deandre Bojorquez MD Unavailable [phone] Jeff Strickland MD Primary Care Provider [phone] Encounter Details Date Type Department Care Team (Late st Contact Info) Description 07/31/2023 Lab Requisition [facility] MAIN LAB [address] [place] [phone] Alan Davenport MD [facility]1 [facility] OF [place] [address] Social History Tobacco Use Types Packs/Day Years Used Date Smoking Tobacco: Never Smokeless Tobacco: Never Alcohol Use Standard Drinks/Week Comments Not Currently 0 (1 standard drink = 0.6 oz pur e alcohol) socially in past Sex and Gender Information Value Date Recorded Sex Assigned at Male 07/02/2021 2:37 PM CDT Legal Sex Male 10:14 PM BEFORE SCHOOL 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 Gender Identity Male 07/02/2021 2:37 PM CDT [...] 10:00 AM CDT Appointment H IVR [address] [place] [address] Elroy Holcomb MD [address] [place] [address] 2L [place] [address] 11/24/2024 9:05 AM CDT Hospital Encounter [facility] RITO OP [address] [place] [address] Elroy Holcomb MD [address] [place] [address] 2L [place] [address] Surgery General 11/24/2024 9:05 AM CDT - 11/24/2024 11:20 AM CDT Surgery [facility] RITO OP [address] [place] [address] Elroy Holcomb MD [address] [place] [address] 2L [place] [address] Bilateral first toe debridement 12/06/2024 10:40 AM CDT Office Visit [facility] - Endocrinology [address] [place] [address], [place] [address] Marbin Flores MD [address] [facility] DIV OF [place] [address] Niraj Turner MD 12[address] [facility] 2L Div of [place] [address] 2025 1:00 PM BEFORE SCHOOL BABYSITTER Office Visit [facility] - Neurology [address] [place] [address], [place] [address] Becky Wilson MD [address] [place] [phone] Scheduled Procedures Name Priority Associated Diagnoses Date/Ti [...] Hold HLA Specimen 07/31/2023 3:[address] [facility] Comment:The Hold HLA specime n has been received into the lab and will be held for 5 years at 4 degrees. Blood BLOOD SPECIMEN / Unknown 07/23/2023 2:05 PM CDT 07/31/2023 2:06 PM CDT Alan Davenport MD LAB - BLOOD BANK ORDERABLES F inal Result [facility] ([facility]) [address] documented in this encounter Visit Diagnoses Not on filedocumented in this encounter Additional Health Concerns Infection Onset Date Last Indicated Resolved Time COVID-19 Under Investigation 09/13/2024 09/13/2024 09/13/2024 6:36 AM CDT documented as of this encounter Care Teams Staging Technician Relationship Specialty Start Date End Date Jeff Strickland MD [address] [place] [address] PCP - General 03/05/18 [place] [address] [place] [address] Orthopedic Surgery 03/28/17 documented as of this encounter
--- OUTSIDE RECORDS SUMMARY | 2024-11-18 20:40 | XMS_ITS | Clinical Summary ---
Author Organization [facility] Address [address] [address] Phone Care Team Providers Care Exec. Creative Director Name Role Phone Jeff Strickland MD Primary Care Provider [phone] Allergies No known active allergies Medications levothyroxine [...] tablet 3 0 Active Continuous Blood Gluc Weight Recorder (FreeStyle Em [place]) device 1 each daily 0 Active Continuous Blood Gluc Sensor (FreeStyle Em Sensor System) misc 1 each once every 2 weeks 0 Active Lancets (OneTouch Delica Plus [id number]) misc OneTouch Delica Plus Lancet 33 gauge [...] 11/10/2019 Overview (12/17/2019): Kendall Carl 1955 Referring Correctional Medicine Physician: Alan Mccall Dialysis Info: NOD GFR 13 Type: Time: (Not currently on dialysis) days Blood Type: O NEG Body mass index is 37.36 kg/m . ALERTS Ballistics Professor: needs to establish Past Medical History: Diagnosis Date Arthropathy RA. Dr Strickland manages. CHF (congestive heart failure) 2 yrs ago [address] St[employer] is Dr. Becerra in [place]. CKD (chronic kidney disease), stage V Community acquired pneumonia 2018 [facility] hospitalized. Diabetes mellitus 20 years. Lantus pen. Esophageal reflux takes med Hypercholesteremia 5-10 yrs meds Hypertension takes meds Hypothyroidism meds 20 years Kidney stones 5-6 years ago had 2 in the same year. Malignancy right kidney 2012 Obstructive sleep apnea 3 years. [facility]. Angela remember doctors name Renal cell [...] of this director of social work that Kendall Gillris has several positive factors for Kidney transplant candidacy from a psychosocial perspective. Patient appears to have appropriate knowledge of illness. Patient has sufficient insurance coverage and stable financial situation for post transplant needs. No concerns regarding substance abuse, legal issues, or mental health needs. Patient has adequate support system and appropriate discharge plan. Plan: refractory worker to provide supportive services as needed. Patient appears to be a reasonable candidate for transplant from a psychosocial perspective. -Post transplant arrangement forms are needed prior to being listed. -Updated toxicology results needed, per protocol Psychiatric Consult Recommended: No Transplant Dish Stacker: Joy Tam LCSW RD: 11/09/2019 BMI= 36.2, [...] nephrectomy. 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 [id number] Immunizations Immunization Administration Dates Next Due Influenza [...] Insurance AETNA PM INTERFACED INSURANCE Care Teams Exec. Creative Director Relationship Specialty Start Date End Date Jeff Strickland MD [address] [facility] [address] [facility] [address] [place] [address] PCP - General Internal Medicine 07/15/18
--- OUTSIDE RECORDS SUMMARY | 2024-11-18 20:40 | XMS_ITS | Encounter Summary ---
Author Organization [facility] Address [facility] [place] [address] Care Team Providers Care Fugitive Detective Name Role Phone Deandre Bojorquez MD Unavailable [phone] Jeff Strickland MD Primary Care Provider [phone] Encounter Details Date Type Department Care Team (Late st Contact Info) Description 05/29/2023 Lab Requisition [facility] MAIN LAB [address] [place] [phone] Alan Davenport MD [facility] [place] [address] Social History Tobacco Use Types Packs/Day Years Used Date Smoking Tobacco: Never Smokeless Tobacco: Never Alcohol Use Standard Drinks/Week Comments Not Currently 0 (1 standard drink = 0.6 oz pur e alcohol) socially in past Sex and Gender Information Value Date Recorded Sex Assigned at Male 07/02/2021 2:37 PM CDT Legal Sex Male 10:14 PM X RAY TECHNICIAN Gender Identity Male 07/02/2021 2:37 PM [...] 10:00 AM CDT Appointment H IVR [address] [place] [address] Elroy Holcomb MD [address] [place] [address] 2[address] [place] [address] 11/24/2024 9:05 AM CDT Hospital Encounter [facility] RITO OP [address] [place] [address] Elroy Holcomb MD [address] [place] [address] 2[address] [place] [address] Surgery General 11/24/2024 9:05 AM CDT - 11/24/2024 11:20 AM CDT Surgery [facility] RITO OP [address] [place] [address] Elroy Holcomb MD [address] [place] [address] 2L [place] [address] Bilateral first toe debridement 12/06/2024 10:40 AM CDT Office Visit [facility] - Endocrinology [address] [place] [address], [place] [address] Marbin Flores MD [address] [facility] DIV [place] [address] Niraj Turner MD 12[address] [facility] 2L [place] [address] 2025 1:00 PM X RAY TECHNICIAN Office Visit [facility] - Neurology [address] [place] [address], [place] [address] Becky Wilson MD [address] [place] [phone] Scheduled Procedures Name Priority Associated Diagnoses Date/Ti [...] Hold HLA Specimen 05/29/2023 10:30 AM CDT [facility] Comment:The Hold HLA specime n has been received into the lab and will be held for 5 years at 4 degrees. Blood BLOOD SPECIMEN / Unknown 05/21/2023 9:24 AM CDT 05/29/2023 9:24 AM CDT Alan Davenport MD LAB - BLOOD BANK ORDERABLES F inal Result [facility] ([facility]) [address] documented in this encounter Visit Diagnoses Not on filedocumented in this encounter Additional Health Concerns Infection Onset Date Last Indicated Resolved Time COVID-19 Under Investigation 09/13/2024 09/13/2024 09/13/2024 6:36 AM CDT documented as of this encounter Care Teams Fugitive Detective Relationship Specialty Start Date End Date Jeff Strickland MD [address] [place] [address] PCP - General 03/05/18 [place] [address] [place] [address] Orthopedic Surgery 03/28/17 documented as of this encounter
--- OUTSIDE RECORDS SUMMARY | 2024-11-18 20:40 | XMS_ITS | Encounter Summary ---
Author Organization [facility] Address [address] [place] [address] Care Team Providers Care Drums Teacher Name Role Phone Deandre Bojorquez MD Unavailable [phone] Jeff Strickland MD Primary Care Provider [phone] Encounter Details Date Type Department Care Team (Late st Contact Info) Description 09/24/2024 Results Follow-Up [facility] Early Admission Unit [address] [place] [phone] Angel Crook MD [address] [place] [address] Social History Tobacco Use Types Packs/Day Years [...] and heating? Not hard at all 09/24/2024 [facility] [place] of Occupat ional Health - Occupational Stress [...] any time in the past 12 [facility], were you homeless or living in a longterm (including now)? No 09/24/2024 Sex and Gender Information Value Date Recorded Sex Assigned at Male 07/02/2021 2:37 PM CDT Legal Sex Male 10:14 PM SODA CLERK Gender Identity Male 07/02/2021 2:37 PM [...] Info) Description 11/23/2024 10:00 AM CDT Appointment [facility] IVR [address] [place] [address] Elroy Holcomb MD [facility]5 [facility] 2L [place] [address] 11/24/2024 9:05 AM CDT Hospital Encounter [facility] RITO OP [address] [place] [address] Elroy Holcomb MD [address] [place] [address] 2L [place] [address] Surgery General 11/24/2024 9:05 AM CDT - 11/24/2024 11:20 AM CDT Surgery [facility] RITO OP [address] [place] [address] Elroy Holcomb MD [address] [facility] 2L [place] [address] Bilateral first toe debridement 12/06/2024 10:40 AM CDT Office Visit [facility] - Endocrinology [address] [place] [address], [place] [address] Marbin Flores MD [address] [facility] DIV [place] [address] Niraj Turner MD [facility]5 [facility] 2L [place] [address] 2025 1:00 PM SODA CLERK Office Visit [facility] - Neurology [address] [place] [address], [place] [address] Becky Wilson MD [address] [place] [phone] Scheduled Procedures Name Priority Associated Diagnoses Date/Ti me IRRIGATION/DEBRIDEMENT WOUND/TISSUE Peripheral artery disease 11/24/2024 9:05 AM CDT AMPUTATION TOE Peripheral artery disease 11/24/2024 9:05 AM CDT documented as of this encounter Visit Diagnoses Not on filedocumented in this encounter Care Teams Drums Teacher Relationship Specialty Start Date End Date Jeff Strickland MD [address] [place] [address] PCP - General 03/05/18 [place] [address] [address] Orthopedic Surgery 03/28/17 documented as of this encounter
--- OUTSIDE RECORDS SUMMARY | 2024-11-18 20:41 | XMS_ITS | Encounter Summary ---
Author Organization [facility] Address [facility] [place] [address] Care Team Providers Care Store Lead Name Role Phone Deandre Bojorquez MD Unavailable [phone] Jeff Strickland MD Primary Care Provider [phone] Encounter Details Date Type Department Care Team (Late st Contact Info) Description 04/10/2023 Lab Requisition [facility] MAIN LAB [address] [place] [phone] Alan Davenport MD [facility]1 [facility] [place] [address] Social History Tobacco Use Types Packs/Day Years Used Date Smoking Tobacco: Never Smokeless Tobacco: Never Alcohol Use Standard Drinks/Week Comments Not Currently 0 (1 standard drink = 0.6 oz pur e alcohol) socially in past Sex and Gender Information Value Date Recorded Sex Assigned at Male 07/02/2021 2:37 PM CDT Legal Sex Male 10:14 PM 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 Gender Identity Male 07/02/2021 2:37 PM [...] 10:00 AM CDT Appointment H IVR [address] [place] [address] Elroy Holcomb MD [address] [place] [address] 2L [place] [address] 11/24/2024 9:05 AM CDT Hospital Encounter [facility] RITO OP [address] [place] [address] Elroy Holcomb MD [address] [place] [address] 2L [place] [address] Surgery General 11/24/2024 9:05 AM CDT - 11/24/2024 11:20 AM CDT Surgery [facility] RITO OP [address] [place] [address] Elroy Holcomb MD [address] [place] [address] 2L [place] [address] Bilateral first toe debridement 12/06/2024 10:40 AM CDT Office Visit [facility] - Endocrinology [address] [place] [address], [place] [address] Marbin Flores MD [address] [facility] DIV [place] [address] Niraj Turner MD 1225 [facility] 2L [place] [address] 2025 1:00 PM 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 Office Visit [facility] - Neurology [address] [place] [address], [place] [address] Becky Wilson MD [address] [place] [phone] Scheduled Procedures Name Priority Associated Diagnoses Date/Ti me IRRIGATION/DEBRIDEMENT WOUND/TISSUE Peripheral artery disease 11/24/2024 9:05 AM CDT AMPUTATION TOE Peripheral artery disease 11/24/2024 9:05 AM CDT documented as of this encounter Procedures Procedure Name Priority Date/Time Associated Diagnosis Comments HOLD HLA SPECIMEN Routine 04/02/2023 3:0 1 PM 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 documented in this encounter Results * HOLD HLA SPECIMEN (04/02/2023 3:01 PM 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) Hold HLA Specimen 04/10/2023 4:01 PM 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 [facility] Comment:The Hold HLA specime n has been received into the lab and will be held for 5 years at 4 degrees. Blood BLOOD SPECIMEN / Unknown 04/02/2023 3:01 PM 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 04/10/2023 3:01 PM 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 Alan Davenport MD LAB - BLOOD BANK ORDERABLES F inal Result [facility] ([facility]) [address] [place] [address], [facility] documented in this encounter Visit Diagnoses Not on filedocumented in this encounter Additional Health Concerns Infection Onset Date Last Indicated Resolved Time COVID-19 Under Investigation 09/13/2024 09/13/2024 09/13/2024 6:36 AM CDT documented as of this encounter Care Teams Store Lead Relationship Specialty Start Date End Date Jeff Strickland MD [address] [place] [address] PCP - General 03/05/18 [place] [address] [place] [address] Orthopedic Surgery 03/28/17 documented as of this encounter
--- OUTSIDE RECORDS SUMMARY | 2024-11-18 20:41 | XMS_ITS | Encounter Summary ---
Author Organization [facility] Address [facility]3 [place] [address] Care Team Providers Care Rehabilitation Assistant Name Role Phone Deandre Bojorquez MD Unavailable [phone] Jeff Strickland MD Primary Care Provider [phone] Reason for Visit * Reason Onset Date Comments Surgery Rescheduled 11/18/2024 Encounter Details Date Type Department Care Team (Late st Contact Info) Description 11/18/2024 Telephone [facility] - Vascular Surgery [address] [place] [address], [place] [phone] Elroy Holcomb MD [address] [place] [address] DIV [place] [address] Surgery Rescheduled Social History Tobacco Use Types [...] Recorded Patient Health Questionnaire-2 Score 6 10/05/2024 [facility] of Occupat ional Health - Occupational [...] Legal Sex Male 10:14 PM DIRECTOR OF CASEWORK SERVICES Gender Identity Male 07/02/2021 2:37 PM CDT [...] Info) Description 11/23/2024 10:00 AM CDT Appointment [facility] IVR [address] [place] [address] Elroy Holcomb MD [address] [place] [address] 2L [place] [address] 11/24/2024 9:05 AM CDT Hospital Encounter [facility] RITO OP [address] [place] [address] Elroy Holcomb MD [address] [place] [address] 2L [place] [address] Surgery General 11/24/2024 9:05 AM CDT - 11/24/2024 11:20 AM CDT Surgery [facility] RITO OP [address] [place] [address] Elroy Holcomb MD [facility] 2L [place] [address] Bilateral first toe debridement 12/06/2024 10:40 AM CDT [facility] [address] [place] [address], [place] [address] Marbin Flores MD 1201 [facility] DIV OF ABD [place] [address] Niraj Turner MD [address] [place] [address] 2L [place] [address] 2025 1:00 PM DIRECTOR OF CASEWORK SERVICES Office Visit [facility] - Neurology [address] [place] [address], [place] [address] Becky Wilson MD [address] [place] [phone] Scheduled Procedures Name Priority Associated Diagnoses Date/Ti me IRRIGATION/DEBRIDEMENT WOUND/TISSUE Peripheral artery disease 11/24/2024 9:05 AM CDT AMPUTATION TOE Peripheral artery disease 11/24/2024 9:05 AM CDT documented as of this encounter Visit Diagnoses Not on filedocumented in this encounter Care Teams Rehabilitation Assistant Relationship Specialty Start Date End Date Jeff Strickland MD [address] [place] [address] PCP - General 03/05/18 [place] [address] [place] [address] Orthopedic Surgery 03/28/17 documented as of this encounter
--- OUTSIDE RECORDS SUMMARY | 2024-11-18 20:41 | XMS_ITS | Encounter Summary ---
Author Organization [facility] Address [facility]3 [place] [address] Care Team Providers Care Fast Food Services Manager Name Role Phone Deandre Bojorquez MD Unavailable [phone] Jeff Strickland MD Primary Care Provider [phone] Encounter Details Date Type Department Care Team (Late st Contact Info) Description 09/30/2023 Lab Requisition [facility] MAIN LAB [address] [place] [address] Alan Davenport MD [facility]1 [facility] OF ABD [place] [address] Social History Tobacco Use Types Packs/Day Years Used Date Smoking Tobacco: Never Smokeless Tobacco: Never Alcohol Use Standard Drinks/Week Comments Not Currently 0 (1 standard drink = 0.6 oz pur e alcohol) socially in past Sex and Gender Information Value Date Recorded Sex Assigned at Male 07/02/2021 2:37 PM CDT Legal Sex Male 10:14 PM PHOTOGRAPHIC PRINTER Gender Identity Male 07/02/2021 2:37 PM [...] 10:00 AM CDT Appointment H IVR [address] [place] [address] Elroy Holcomb MD [address] [place] [address] 2L [place] [address] 11/24/2024 9:05 AM CDT Hospital Encounter [facility] RITO OP [address] [place] [address] Elroy Holcomb MD [address] [place] [address] 2L [place] [address] Surgery General 11/24/2024 9:05 AM CDT - 11/24/2024 11:20 AM CDT Surgery [facility] RITO OP [address] [place] [address] Elroy Holcomb MD [address] [place] [address] 2L DIV [place] [address] Bilateral first toe debridement 12/06/2024 10:40 AM CDT Office Visit [facility] - Endocrinology [address] [place] [address], [place] [address] Marbin Flores MD 1201 [facility] DIV OF ABD [place] [address] Niraj Turner MD 1225 [facility] 2L [place] [address] 2025 1:00 PM PHOTOGRAPHIC PRINTER Office Visit [facility] - Neurology [address] [place] [address], [place] [address] Becky Wilson MD [address] [place] [phone] Scheduled Procedures Name Priority Associated Diagnoses Date/Ti [...] - BLOOD BANK ORDERABLES F inal Result [facility] ([facility]) [address] documented in this encounter Visit Diagnoses Not on filedocumented in this encounter Additional Health Concerns Infection Onset Date Last Indicated Resolved Time COVID-19 Under Investigation 09/13/2024 09/13/2024 09/13/2024 6:36 AM CDT documented as of this encounter Care Teams Fast Food Services Manager Relationship Specialty Start Date End Date Jeff Strickland MD [address] [place] [address] PCP - General 03/05/18 [place] [address] [place] [address] Orthopedic Surgery 03/28/17 documented as of this encounter
--- OUTSIDE RECORDS SUMMARY | 2024-11-18 20:41 | XMS_ITS | Encounter Summary ---
Author Organization [facility] Address [facility]3 [place] [address] Care Team Providers Care Hand Cementer Name Role Phone Deandre Bojorquez MD Unavailable [phone] Jeff Strickland MD Primary Care Provider [phone] Encounter Details Date Type Department Care Team (Late st Contact Info) Description 11/21/2023 Lab Requisition [facility] MAIN LAB [address] [place] [address] Alan Davenport MD [facility]1 [facility] [place] [address] Social History Tobacco Use Types Packs/Day Years Used Date Smoking Tobacco: Never Smokeless Tobacco: Never Alcohol Use Standard Drinks/Week Comments Not Currently 0 (1 standard drink = 0.6 oz pur e alcohol) socially in past Sex and Gender Information Value Date Recorded Sex Assigned at Male 07/02/2021 2:37 PM CDT 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 Gender Identity Male 07/02/2021 2:37 PM [...] 10:00 AM CDT Appointment H IVR [address] [place] [address] Elroy Holcomb MD [address] [place] [address] 2L [place] [address] 11/24/2024 9:05 AM CDT Hospital Encounter [facility] RITO OP [address] [place] [address] Elroy Holcomb MD [address] [place] [address] 2L [place] [address] Surgery General 11/24/2024 9:05 AM CDT - 11/24/2024 11:20 AM CDT Surgery [facility] RITO OP [address] [place] [address] Elroy Holcomb MD [address] [place] [address] 2L [place] [address] Bilateral first toe debridement 12/06/2024 10:40 AM CDT Office Visit [facility] - Endocrinology [address] [place] [address], [place] [address] Marbin Flores MD 1201 [facility] DIV [place] [address] Niraj Turner MD [address] [facility] 2L [place] [address] 2025 1:00 PM CUPOLA REPAIRER Office Visit [facility] - Neurology [address] [place] [address], [place] [address] Becky Wilson MD [address] [place] [phone] Scheduled Procedures Name Priority Associated Diagnoses Date/Ti [...] Hold HLA Specimen 11/21/2023 1:31 PM CDT [facility] ([facility]) Comment:The Hold HLA specime n has been received into the lab and will be held for 5 years at 4 degrees. Blood BLOOD SPECIMEN / Unknown 11/18/2023 12:16 PM CDT 11/21/2023 12:17 PM CDT Alan Davenport MD LAB - BLOOD BANK ORDERABLES F inal Result [facility] ([facility]) [address] documented in this encounter Visit Diagnoses Not on filedocumented in this encounter Additional Health Concerns Infection Onset Date Last Indicated Resolved Time COVID-19 Under Investigation 09/13/2024 09/13/2024 09/13/2024 6:36 AM CDT documented as of this encounter Care Teams Hand Cementer Relationship Specialty Start Date End Date Jeff Strickland MD [address] [place] [address] PCP - General 03/05/18 [place] [address] [place] [address] Orthopedic Surgery 03/28/17 documented as of this encounter
--- OUTSIDE RECORDS SUMMARY | 2024-11-18 20:41 | XMS_ITS | Encounter Summary ---
Author Organization [facility] Address [address] [place] [address] Care Team Providers Care Safety Attendant Name Role Phone Deandre Bojorquez MD Unavailable [phone] Jeff Strickland MD Primary Care Provider [phone] Encounter Details Date Type Department Care Team (Late st Contact Info) Description 02/07/2023 Lab Requisition [facility] MAIN LAB [address] [place] [phone] Alan Davenport MD [facility] [place] [address] Social History Tobacco Use Types Packs/Day Years Used Date Smoking Tobacco: Never Smokeless Tobacco: Never Alcohol Use Standard Drinks/Week Comments Not Currently 0 (1 standard drink = 0.6 oz pur e alcohol) socially in past Sex and Gender Information Value Date Recorded Sex Assigned at Male 07/02/2021 2:37 PM CDT Legal Sex Male 10:14 PM PAD HAND Gender Identity Male 07/02/2021 2:37 PM [...] 10:00 AM CDT Appointment H IVR [address] [place] [address] Elroy Holcomb MD [address] [place] [address] 2L [place] [address] 11/24/2024 9:05 AM CDT Hospital Encounter [facility] RITO OP [address] [place] [address] Elroy Holcomb MD [address] [place] [address] 2L [place] [address] Surgery General 11/24/2024 9:05 AM CDT - 11/24/2024 11:20 AM CDT Surgery [facility] RITO OP [address] [place] [address] Elroy Holcomb MD [address] [place] [address] 2L [place] [address] Bilateral first toe debridement 12/06/2024 10:40 AM CDT Office Visit [facility] - Endocrinology [address] [place] [address], [place] [address] Marbin Flores MD 1201 [facility] DIV [place] [address] Niraj Turner MD 1225 [facility] 2L [place] [address] 2025 1:00 PM PAD HAND Office Visit [facility] - Neurology [address] [place] [address], [place] [address] Becky Wilson MD [address] [place] [phone] Scheduled Procedures Name Priority Associated Diagnoses Date/Ti me IRRIGATION/DEBRIDEMENT WOUND/TISSUE Peripheral artery disease 11/24/2024 9:05 AM CDT AMPUTATION TOE Peripheral artery disease 11/24/2024 9:05 AM CDT documented as of this encounter Procedures Procedure Name Priority Date/Time Associated Diagnosis Comments HOLD HLA SPECIMEN Routine 2023 7:5 8 AM PAD HAND documented in this encounter Results * HOLD HLA SPECIMEN (2023 7:58 AM PAD HAND) Hold HLA Specimen 02/07/2023 9:01 AM PAD HAND [facility] ([facility]) Comment:The Hold HLA specime n has been received into the lab and will be held for 5 years at 4 degrees. Blood BLOOD SPECIMEN / Unknown 2023 7:58 AM PAD HAND 02/07/2023 7:59 AM PAD HAND Alan Davenport MD LAB - BLOOD BANK ORDERABLES F inal Result [facility] ([facility]) [address] [place] [address], [facility] documented in this encounter Visit Diagnoses Not on filedocumented in this encounter Additional Health Concerns Infection Onset Date Last Indicated Resolved Time COVID-19 Under Investigation 09/13/2024 09/13/2024 09/13/2024 6:36 AM CDT documented as of this encounter Care Teams Safety Attendant Relationship Specialty Start Date End Date Jeff Strickland MD [address] [place] [address] PCP - General 03/05/18 [place] [address] [place] [address] Orthopedic Surgery 03/28/17 documented as of this encounter
--- OUTSIDE RECORDS SUMMARY | 2024-11-18 20:41 | XMS_ITS | Encounter Summary ---
Author Organization [facility] Address [facility] [place] [address] Care Team Providers Care Manager Facility Name Role Phone Deandre Bojorquez MD Unavailable [phone] Jeff Strickland MD Primary Care Provider [phone] Encounter Details Date Type Department Care Team (Late st Contact Info) Description 10/28/2023 Lab Requisition [facility] MAIN LAB [address] [place] [address] Alan Davenport MD 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 Gender Identity Male 07/02/2021 2:37 PM [...] Appointment H IVR [address] [place] [address] Elroy Holcomb MD [address] [place] [address] 2L [place] [address] 11/24/2024 9:05 AM CDT Hospital Encounter [facility] RITO OP [address] [place] [address] Elroy Holcomb MD [address] [place] [address] 2L [place] [address] Surgery General 11/24/2024 9:05 AM CDT - 11/24/2024 11:20 AM CDT Surgery [facility] RITO OP [address] [place] [address] Elroy Holcomb MD [address] [place] [address] 2L [place] [address] Bilateral first toe debridement 12/06/2024 10:40 AM CDT Office Visit [facility] - Endocrinology [address] [place] [address], [place] [address] Marbin Flores MD 1201 [facility] DIV [place] [address] Niraj Turner MD 1225 [facility] 2L [place] [address] 2025 1:00 PM MAINTENANCE PLUMBER Office Visit [facility] - Neurology [address] [place] [address], [place] [address] Becky Wilson MD [address] [place] [phone] Scheduled Procedures Name Priority Associated Diagnoses Date/Ti [...] Hold HLA Specimen 10/28/2023 5:00 PM CDT [facility] ([facility]) Comment:The Hold HLA specime n has been received into the lab and will be held for 5 years at 4 degrees. Blood BLOOD SPECIMEN / Unknown 10/22/2023 3:50 PM CDT 10/28/2023 3:50 PM CDT Alan Davenport MD LAB - BLOOD BANK ORDERABLES F inal Result [facility] ([facility] [address] documented in this encounter Visit Diagnoses Not on filedocumented in this encounter Additional Health Concerns Infection Onset Date Last Indicated Resolved Time COVID-19 Under Investigation 09/13/2024 09/13/2024 09/13/2024 6:36 AM CDT documented as of this encounter Care Teams Manager Facility Relationship Specialty Start Date End Date Jeff Strickland MD [address] [place] [address] PCP - General 03/05/18 [place] [address] [place] [address] Orthopedic Surgery 03/28/17 documented as of this encounter
--- OUTSIDE RECORDS SUMMARY | 2024-11-18 20:41 | XMS_ITS | Encounter Summary ---
Author Organization [facility] Address [address] [facility] [place] [address] Care Team Providers Care Local Tanker Truck Driver Name Role Phone Deandre Bojorquez MD Unavailable [phone] Jeff Strickland MD Primary Care Provider [phone] Encounter Details Date Type Department Care Team (Late st Contact Info) Description 11/12/2024 Orders Only [facility] PHYS SURGERY [address] [place] [address] Griffin Rodriguez MD [address] [facility] DIV [facility] 2L [place] [phone] Social History Tobacco Use Types Packs/Day Years [...] Recorded Patient Health Questionnaire-2 Score 6 10/05/2024 [facility] - Occupational [...] PM CDT Legal Sex 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 Gender Identity Male 07/02/2021 2:37 PM [...] 10:00 AM CDT Appointment [facility] IVR [address] [place] [address] Elroy Holcomb MD [address] [place] [address] 2L [place] [address] 11/24/2024 9:05 AM CDT Hospital Encounter [facility] RITO OP [address] [place] [address] Elroy Holcomb MD [address] [place] [address] 2L [place] [address] Surgery General 11/24/2024 9:05 AM CDT - 11/24/2024 11:20 AM CDT Surgery [facility] RITO OP [address] [place] [address] Elroy Holcomb MD [address] [place] [address] 2L [place] [address] Bilateral first toe debridement 12/06/2024 10:40 AM CDT Office Visit [facility] - Endocrinology [address] [place] [address], [place] [address] Marbin Flores MD 1201 [facility] DIV OF [place] [address] Niraj Turner MD 1225 [facility] 2L [place] [address] 2025 1:00 PM DRUG AND ALCOHOL TREATMENT SPECIALIST Office Visit [facility] - Neurology [address] [place] [address], [place] [address] Becky Wilson MD [facility]5 [place] [phone] Scheduled Procedures Name Priority Associated Diagnoses Date/Ti me IRRIGATION/DEBRIDEMENT WOUND/TISSUE Peripheral artery disease 11/24/2024 9:05 AM CDT AMPUTATION TOE Peripheral artery disease 11/24/2024 9:05 AM CDT documented as of this encounter Visit Diagnoses Not on filedocumented in this encounter Care Teams Local Tanker Truck Driver Relationship Specialty Start Date End Date Jeff Strickland MD [address] [place] [address] PCP - General 03/05/18 [place] [address] [place] [address] Orthopedic Surgery 03/28/17 documented as of this encounter
--- OUTSIDE RECORDS SUMMARY | 2024-11-18 20:42 | XMS_ITS | Clinical Summary ---
Author Organization [facility] Address [facility] [place] [address] Care Team Providers Care Clearing Hand Name Role Phone Jeff Strickland MD Primary Care Provider [phone] Allergies Active Allergy Reactions Criticality Noted Date [...] by mouth nightly at bedtime. 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
--- OUTSIDE RECORDS SUMMARY | 2024-11-18 20:42 | XMS_ITS | Encounter Summary ---
Author Organization [facility] Address [facility] [place] [address] Care Team Providers Care Lead Section Supervisor Name Role Phone Deandre Bojorquez MD Unavailable [phone] Jeff Strickland MD Primary Care Provider [phone] Encounter Details Date Type Department Care Team (Late st Contact Info) Description 04/29/2024 Lab Requisition [facility] MAIN LAB [address] [place] [phone] Alan Davenport MD 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 Gender Identity Male 07/02/2021 2:37 PM [...] 10:00 AM CDT Appointment H IVR [address] [place] [address] Elroy Holcomb MD [address] [place] [address] 2L [place] [address] 11/24/2024 9:05 AM CDT Hospital Encounter [facility] RITO OP [address] [place] [address] Elroy Holcomb MD [address] [place] [address] 2L [place] [address] Surgery General 11/24/2024 9:05 AM CDT - 11/24/2024 11:20 AM CDT Surgery [facility] RITO OP [address] [place] [address] Elroy Holcomb MD [address] [place] [address] 2L [place] [address] Bilateral first toe debridement 12/06/2024 10:40 AM CDT Office Visit [facility] Endocrinology [address] [place] [address], [place] [address] Marbin Flores MD 1201 [facility] DIV [place] [address] Niraj Turner MD [address] [facility] 2L [place] [address] 2025 1:00 PM MARKETING ROTATION ASSOCIATE Office Visit [facility] - Neurology [address] [place] [address], [place] [address] Becky Wilson MD [address] [place] [phone] Scheduled Procedures Name Priority Associated Diagnoses Date/Ti [...] HLA Specimen 04/29/2024 3:02 PM CDT [facility]) Comment:The Hold HLA specime n has been received into the lab and will be held for 5 years at 4 degrees. Blood BLOOD SPECIMEN / Unknown 04/27/2024 1:48 PM CDT 04/29/2024 1:49 PM CDT Alan Davenport MD LAB - BLOOD BANK ORDERABLES F inal Result [facility] ([facility]) [address] documented in this encounter Visit Diagnoses Not on filedocumented in this encounter Additional Health Concerns Infection Onset Date Last Indicated Resolved Time COVID-19 Under Investigation 09/13/2024 09/13/2024 09/13/2024 6:36 AM CDT documented as of this encounter Care Teams Lead Section Supervisor Relationship Specialty Start Date End Date Jeff Strickland MD [address] [place] [address] PCP - General 03/05/18 [place] [address] [place] [address] Orthopedic Surgery 03/28/17 documented as of this encounter
--- OUTSIDE RECORDS SUMMARY | 2024-11-18 20:42 | XMS_ITS | Encounter Summary ---
Author Organization [facility] Address [facility]3 [place] [address] Care Team Providers Care Brain Wave Technician Name Role Phone Deandre Bojorquez MD Unavailable Jeff Strickland MD Primary Care Provider Encounter Details Date Type Department Care Team (Late st Contact Info) Description 02/04/2024 Lab Requisition [facility] MAIN LAB [address] [place] [phone] Alan Davenport MD [facility]1 [facility] OF ABD [place] [address] Social History Tobacco Use Types Packs/Day Years Used Date Smoking Tobacco: Never Smokeless Tobacco: Never Alcohol Use Standard Drinks/Week Comments Not Currently 0 (1 standard drink = 0.6 oz pur e alcohol) socially in past Sex and Gender Information Value Date Recorded Sex Assigned at Male 07/02/2021 2:37 PM CDT 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 Gender Identity Male 07/02/2021 2:37 PM [...] 10:00 AM CDT Appointment H IVR [address] [place] [address] Elroy Holcomb MD [address] [place] [address] 2L DIV [place] [address] 11/24/2024 9:05 AM CDT Hospital Encounter [facility] RITO OP [address] [place] [address] Elroy Holcomb MD [address] [place] [address] 2L DIV [place] [address] Surgery General 11/24/2024 9:05 AM CDT - 11/24/2024 11:20 AM CDT Surgery [facility] RITO OP [address] [place] [address] Elroy Holcomb MD [address] [place] [address] 2L DIV [place] [address] Bilateral first toe debridement 12/06/2024 10:40 AM CDT Office Visit [facility] Endocrinology [address] [place] [address], [place] [address] Marbin Flores MD 1201 [facility] DIV OF ABD [place] [address] Niraj Turner MD 1225 [facility] 2L [place] [address] 2025 1:00 PM STEAM DISTRIBUTION SUPERVISOR Office Visit [facility] Physician Group - Neurology [address] [place] [address], [place] [address] Becky Wilson MD [address] [place] [phone] Scheduled Procedures Name Priority Associated Diagnoses Date/Ti me IRRIGATION/DEBRIDEMENT WOUND/TISSUE Peripheral artery disease 11/24/2024 9:05 AM CDT AMPUTATION TOE Peripheral artery disease 11/24/2024 9:05 AM CDT documented as of this encounter Procedures Procedure Name Priority Date/Time Associated Diagnosis Comments HOLD HLA SPECIMEN Routine 01/27/2024 3:2 3 PM STEAM DISTRIBUTION SUPERVISOR documented in this encounter Results * HOLD HLA SPECIMEN (01/27/2024 3:23 PM STEAM DISTRIBUTION SUPERVISOR) Hold HLA Specimen 02/04/2024 4:31 PM STEAM DISTRIBUTION SUPERVISOR [facility] ([facility]) Comment:The Hold HLA specime n has been received into the lab and will be held for 5 years at 4 degrees. Blood BLOOD SPECIMEN / Unknown 01/27/2024 3:23 PM STEAM DISTRIBUTION SUPERVISOR 02/04/2024 3:23 PM STEAM DISTRIBUTION SUPERVISOR Alan Davenport MD LAB - BLOOD BANK ORDERABLES F inal Result [facility] ([facility]) [address] [place] [address], [facility] documented in this encounter Visit Diagnoses Not on filedocumented in this encounter Additional Health Concerns Infection Onset Date Last Indicated Resolved Time COVID-19 Under Investigation 09/13/2024 09/13/2024 09/13/2024 6:36 AM CDT documented as of this encounter Care Teams Brain Wave Technician Relationship Specialty Start Date End Date Jeff Strickland MD [address] [place] [address] PCP - General 03/05/18 [place] [address] [place] [address] Orthopedic Surgery 03/28/17 documented as of this encounter
--- OUTSIDE RECORDS SUMMARY | 2024-11-18 20:42 | XMS_ITS | Encounter Summary ---
Author Organization [facility] Address [address] [place] [address] Care Team Providers Care Unemployment Insurance Director Name Role Phone Deandre Bojorquez MD Unavailable [phone] Jeff Strickland MD Primary Care Provider Encounter Details Date Type Department Care Team (Late st Contact Info) Description 03/12/2024 Lab Requisition [facility] MAIN LAB [address] [place] [address] Alan Davenport MD 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 [...] 10:00 AM CDT Appointment H IVR [address] [place] [address] Elroy Holcomb MD [address] [place] [address] 2L [place] [address] 11/24/2024 9:05 AM CDT Hospital Encounter [facility] RITO OP [address] [place] [address] Elroy Holcomb MD [address] [place] [address] 2L [place] [address] Surgery General 11/24/2024 9:05 AM CDT - 11/24/2024 11:20 AM CDT Surgery [facility] RITO OP [address] [place] [address] Elroy Holcomb MD [address] [place] [address] 2L [place] [address] Bilateral first toe debridement 12/06/2024 10:40 AM CDT Office Visit [facility] - Endocrinology [address] [place] [address], [place] [address] Marbin Flores MD 1201 [facility] DIV OF [place] [address] Niraj Turner MD 1225 [facility] 2L [place] [address] 2025 1:00 PM WELDING SYSTEMS AND EQUIPMENT REPAIRER Office Visit [facility]ician Group - Neurology [address] [place] [address], [place] [address] Becky Wilson MD [address] [place] [phone] Scheduled Procedures Name Priority Associated Diagnoses Date/Ti me IRRIGATION/DEBRIDEMENT WOUND/TISSUE Peripheral artery disease 11/24/2024 9:05 AM CDT AMPUTATION TOE Peripheral artery disease 11/24/2024 9:05 AM CDT documented as of this encounter Procedures Procedure Name Priority Date/Time Associated Diagnosis Comments HOLD HLA SPECIMEN Routine 03/05/2024 1:4 0 PM WELDING SYSTEMS AND EQUIPMENT REPAIRER documented in this encounter Results * HOLD HLA SPECIMEN (03/05/2024 1:40 PM WELDING SYSTEMS AND EQUIPMENT REPAIRER) Hold HLA Specimen 03/12/2024 3:00 PM WELDING SYSTEMS AND EQUIPMENT REPAIRER [facility] Comment:The Hold HLA specime n has been received into the lab and will be held for 5 years at 4 degrees. Blood BLOOD SPECIMEN / Unknown 03/05/2024 1:40 PM WELDING SYSTEMS AND EQUIPMENT REPAIRER 03/12/2024 1:40 PM WELDING SYSTEMS AND EQUIPMENT REPAIRER Alan Davenport MD LAB - BLOOD BANK ORDERABLES F inal Result [facility] ([facility]) [address] [place] [address], [facility] documented in this encounter Visit Diagnoses Not on filedocumented in this encounter Additional Health Concerns Infection Onset Date Last Indicated Resolved Time COVID-19 Under Investigation 09/13/2024 09/13/2024 09/13/2024 6:36 AM CDT documented as of this encounter Care Teams Unemployment Insurance Director Relationship Specialty Start Date End Date Jeff Strickland MD [address] [place] [address] PCP - General 03/05/18 [place] [address] [place] [address] Orthopedic Surgery 03/28/17 documented as of this encounter
--- OUTSIDE RECORDS SUMMARY | 2024-11-18 20:42 | XMS_ITS | Encounter Summary ---
Author Organization [facility] Address [facility]3 [place] [address] Care Team Providers Care Net Mobile Developer Name Role Phone Deandre Bojorquez MD Unavailable [phone] Jeff Strickland MD Primary Care Provider [phone] Encounter Details Date Type Department Care Team (Late st Contact Info) Description 03/30/2024 Lab Requisition [facility] LAB [address] [place] [phone] Alan Davenport MD [facility] [place] [place] [address] Social History Tobacco Use Types Packs/Day Years Used Date Smoking Tobacco: Never Smokeless Tobacco: Never Alcohol Use Standard Drinks/Week Comments Not Currently 0 (1 standard drink = 0.6 oz pur e alcohol) socially in past Sex and Gender Information Value Date Recorded Sex Assigned at Male 07/02/2021 2:37 PM CDT Legal Sex Male 10:14 PM MANAGER TRUCK Gender Identity Male 07/02/2021 2:37 PM CDT [...] 10:00 AM CDT Appointment H IVR [address] [place] [address] Elroy Holcomb MD [address] [place] [address] 2L [place] [address] 11/24/2024 9:05 AM CDT Hospital Encounter [facility] RITO OP [address] [place] [address] Elroy Holcomb MD [address] [place] [address] 2L [place] [address] Surgery General 11/24/2024 9:05 AM CDT - 11/24/2024 11:20 AM CDT Surgery [facility] RITO OP [address] [place] [address] Elroy Holcomb MD [address] [place] [address] 2L [place] [address] Bilateral first toe debridement 12/06/2024 10:40 AM CDT Office Visit [facility] - Endocrinology [address] [place] [address], [place] [address] Marbin Flores MD [address] [facility] DIV [place] [address] Niraj Turner MD 1225 [facility] 2L [place] [address] 2025 1:00 PM MANAGER TRUCK Office Visit [facility] Physician Group - Neurology [address] [place] [address], [place] [address] Becky Wilson MD [address] [place] [phone] Scheduled Procedures Name Priority Associated Diagnoses Date/Ti me IRRIGATION/DEBRIDEMENT WOUND/TISSUE Peripheral artery disease 11/24/2024 9:05 AM CDT AMPUTATION TOE Peripheral artery disease 11/24/2024 9:05 AM CDT documented as of this encounter Procedures Procedure Name Priority Date/Time Associated Diagnosis Comments HOLD HLA SPECIMEN Routine 03/25/2024 2:5 1 PM MANAGER TRUCK documented in this encounter Results * HOLD HLA SPECIMEN (03/25/2024 2:51 PM MANAGER TRUCK) Hold HLA Specimen 03/30/2024 4:01 PM MANAGER TRUCK [facility] Comment:The Hold HLA specime n has been received into the lab and will be held for 5 years at 4 degrees. Blood BLOOD SPECIMEN / Unknown 03/25/2024 2:51 PM MANAGER TRUCK 03/30/2024 2:51 PM MANAGER TRUCK Alan Davenport MD LAB - BLOOD BANK ORDERABLES F inal Result [facility] ([facility]) [address] [place] [address], [facility] documented in this encounter Visit Diagnoses Not on filedocumented in this encounter Additional Health Concerns Infection Onset Date Last Indicated Resolved Time COVID-19 Under Investigation 09/13/2024 09/13/2024 09/13/2024 6:36 AM CDT documented as of this encounter Care Teams Net Mobile Developer Relationship Specialty Start Date End Date Jeff Strickland MD [address] [place] [address] PCP - General 03/05/18 [place] [address] [place] [address] Orthopedic Surgery 03/28/17 documented as of this encounter
--- OUTSIDE RECORDS SUMMARY | 2024-11-18 21:58 | XMS_ITS | Clinical Summary ---
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 INTERVENTION Routine 09/01/2024 2:18 PM CDT Abnormal stress test Dyspnea on exertion Pre-kidney transplant, listed Coronary artery disease with angina pectoris, unspecified vessel or lesion type, unspecified whether or[place]armiut or transplanted heart Abnormal findings on cardiac catheterization GLUCOSE - POINT OF CARE Routine 09/01/2024 10:00 AM CDT CBC W/O DIFFERENTIAL ANDIE 09/01/2024 9:57 AM CDT Coronary artery disease with angina pectoris, unspecified vessel or lesion type, unspecified whether or[place]armiut or transplanted heart Abnormal findings on cardiac catheterization BASIC METABOLIC PANEL (CALCIUM TOTAL) ANDIE 09/01/2024 9:57 AM CDT Coronary artery disease with angina pectoris, unspecified vessel or lesion type, unspecified whether orutsararmiut or transplanted heart Abnormal findings on cardiac [...] Routine 08/18/2024 2:33 PM CDT 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) [...] ARTERY 08/18/2024 10:49 AM CDT 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) 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) GLUCOSE - POINT OF CARE Routine 08/18/2024 10:15 AM CDT BASIC METABOLIC PANEL (CALCIUM TOTAL) ANDIE 08/18/2024 10:11 AM CDT 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) CBC W/O DIFFERENTIAL ANDIE 08/18/2024 10:01 AM CDT 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) HEPATITIS C ANTIBODY Routine 06/16/2024 4:15 PM CDT Pre-kidney transplant, listed ESRD (end stage renal disease) (HCC) 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, without long-term current use of insulin (HCC) Hypertension, unspecified type Oncocytoma Kidney stones SHABNAM on CPAP Coronary artery disease involving orutsararmiut coronary artery of orutsararmiut heart, unspecified whether angina present from Last 3 Months or Most Recently Relevant to Health Maintenance Results * IR Angiogram Bilateral Leg (11/12/2024 9:06 AM CDT) Anatomical Region Laterality Modality Lower Extremity X-Ray Angiograph y 11/12/2024 9:47 AM CDT Impressions 11/12/2024 3:38 PM CDT IMPRESSION: Left lower extremity angiogram with patent DELIVERY MGR, SFA with areas of < 50% stenosis, patent TP trunk with occlusions in the peroneal and PT shortly after origin, with single vessel runoff to the foot via the AT with occlusion in the DP in the foot. Right lower extremity angiogram with patent DELIVERY MGR, SFA, and TP trunk with an occluded [...] Owusu 11/12/2024 9:47 AM > Dictated by Design Eng I, Elroy Holcomb MD have personally reviewed [...] monitored moderate sedation ATTENDING: Elroy Holcomb MD KETTLE TENDER: Griffin Rodriguez MD; Elroy Owusu MD ANESTHESIA: [...] exchanges this was upsized for a 5 Kenyan sheath. A guidewire and omniflush catheter were [...] evaluation, please review the evaluation forms in [facility]. For details on monitored clinical parameters during the intra-service sedation time, please review the procedure nurse documentation in [facility]. Procedure Note Elroy Holcomb MD [...] monitored moderate sedation ATTENDING: Elroy Holcomb MD KETTLE TENDER: Griffin Rodriguez MD; Elroy Owusu MD ANESTHESIA: [...] of exchanges thiswas upsized for a 5 Kenyan sheath. A guidewire and omniflush catheter werethen [...] evaluation, please review the evaluation forms in [facility]. For details on monitored clinical parameters during the intra-service sedation time, please review the procedure nurse documentation in [facility]. IMPRESSION: Left lower extremity angiogram with patent DELIVERY MGR, SFA with areas of < 50% stenosis, patent TP trunk with occlusions in the peroneal and PT shortly after origin, with single vessel runoff to the foot via the AT with occlusion in the DP in the foot. Right lower extremity angiogram with patent DELIVERY MGR, SFA, and TP trunk with an occluded AT distally, andocclusion in peroneal at level of ankle, and multifocal areas of stenosis in thePT which appears occluded at the level of the ankle. Successful deploymentof 5 Fr Mynx control closure device. Total fluoroscopy time of 4.2min. Total contrast usage of 60mL > Dictated by Elroy Owusu 11/12/2024 9:47 AM > Dictated by Design Eng I, Elroy Holcomb MD have personally reviewed and interpreted this examination/study. > Interpreting Provider: Elroy Holcomb MD on 11/12/2024 3:38 PM us Elroy Holcomb MD IR ORDERABLES Final Resu lt * (ABNORMAL) BASIC METABOLIC PANEL (CALCIUM TOTAL) (11/12/2024 7:11 AM CDT) Only the most recent of7 resultswithin the time period is included. BUN 28(H) 7 - 26 mg/dL 11/12/2024 7:59 AM [facility] Creatinine 7.33(H) 0.71 - 1.16 mg/dL 11/12/2024 7:59 AM [facility] Sodium 138 136 - 145 mmol/L 11/12/2024 7:59 AM [facility] Potassium 3.5 3.5 - 4.5 mmol/L 11/12/2024 7:59 AM [facility] Chloride 97(L) 98 - 107 mmol/L 11/12/2024 7:59 AM [facility] CO2 25 22 - 29 mmol/L 11/12/2024 7:59 AM [facility] Glucose 164(H) 70 - 99 mg/dL 11/12/2024 7:59 AM [facility] Calcium 7.8(L) 8.4 - 10.2 mg/dL 11/12/2024 7:59 AM [facility] Anion Gap 16 6 - 16 11/12/2024 7:59 AM [facility] BUN/Creatinine Ratio 4(L) 7 - 23 11/12/2024 7:59 AM [facility] Osmolality Calculated 295 275 - 295 mOsm/kg 11/12/2024 7:59 AM [facility] eGFR by CKD-EPI 8(L) >=90 mL/min/1.7 3 m2 11/12/2024 7:59 AM [facility] Comment:Estimated Glomerular Filtration Rate (eGFR) calculated using the CKD-EPI Creatinine Equation (2020), per the National Kidney Foundation and [place] Society [employer] Nephrology recommendations. Blood BLOOD SPECIMEN / Unknown Lab Venipuncture / Unknown 11/12/2024 7:11 AM CDT 11/12/2024 7:44 AM CDT Elroy Holcomb MD LAB - CHEMISTRY ORDERABLES Final Result [facility] [address] [place] [address], [facility] [phone] * (ABNORMAL) GLUCOSE - POINT OF CARE (11/12/2024 7:05 AM CDT) Only the most recent of56 resultswithin the time period is included. Glucose WB/POC 193(H) 70 - 99 mg/dL 11/12/2024 7:06 AM [facility] Specimen Type Venous 11/12/2024 7:06 AM [facility] Blood BLOOD SPECIMEN / Unknown 11/12/2024 7:05 AM CDT 11/12/2024 7:06 AM CDT Elroy Holcomb MD LAB - POINT OF CARE ORDERA BLES Final Result Performing Organization Address [facility]/ZIP Co de Phone Number [address] [address], [facility] [phone] * CARDIAC EKG ORDER (10/29/2024 4:31 PM [...] 10/28/2024 3:13 AM CDT [facility] Delta Troponin I HS 10/28/2024 3:13 AM CDT [facility] Comment:Delta value intentio tito not calculated. Baseline to 1 hour specimen collection interval exceeded. Blood BLOOD SPECIMEN / Unknown Venipuncture / Unknown 10/28/2024 2:31 AM CDT 10/28/2024 2:37 AM CDT us Savanna Mcfralane MD LAB - CHEMISTRY ORDERABLES Fi nal Result Performing Organization Address [facility] Co de Phone Number [address] [address], [facility] [phone] * LACTIC ACID BLOOD REFLEX TO REPEAT (10/28/2024 2:31 AM CDT) Only the most recent of5 resultswithin the time period is included. Lactic Acid-Stat 1.9 <=2.0 mmol/L 10/28/2024 3:06 AM CDT [facility] Blood BLOOD SPECIMEN / Unknown Venipuncture / Unknown 10/28/2024 2:31 AM CDT 10/28/2024 2:37 AM CDT us Savanna Mcfarlane MD LAB - CHEMISTRY ORDERABLES Fi nal Result [facility] [address] [place] [address], [facility] [phone] * XR Chest 2Vw (10/27/2024 11:58 PM CDT) Only the most recent of4 resultswithin the time period is included. Anatomical Region Laterality Modality Chest Digital Radiogra phy 10/28/2024 12:0 2 AM CDT Narrative 10/28/2024 3:32 AM CDT PROCEDURE: XR CHEST 2VW, DATE/TIME OF EXAM: 10/27/2024 11:58 PM, LOCATION [facility] INDICATION: R07.9: Chest pain, unspecified type [...] > Dictated by Branden Jha MD, (residential leasing agent). > Dictated by Design Eng I, Blake Plasencia MD have personally reviewed and interpreted this examination/study. > Interpreting Provider: Blake Plasencia MD on 10/28/2024 3:32 AM Procedure Note Blake Plasencia MD - 10/28/2024 PROCEDURE: XR CHEST 2VW, DATE/TIME OF EXAM: 10/27/2024 11:58 PM, LOCATION [facility] INDICATION: R07.9: Chest pain, unspecified type [...] > Dictated by Branden Jha MD, (residential leasing agent). > Dictated by Design Eng I, Blake Plasencia MD have personally reviewed and interpreted this examination/study. > Interpreting Provider: Blake Plasencia MD on 10/28/2024 3:32 AM Savanna Mcfarlane MD DIAGNOSTIC IMAGING ORDERABLES Final Result * (ABNORMAL) TROPONIN-I HIGH SENSITIVE BASELINE + 1HR (10/27/2024 11:53 PM CDT) Only the most recent of8 resultswithin the time period is included. [facility] Troponin I High Sensitive 72(H) <=35 ng/L 10/28/2024 12:49 AM [facility] Blood BLOOD SPECIMEN / Unknown Venipuncture / Unknown 10/27/2024 11:53 PM CDT 10/28/2024 12:12 AM CDT Savanna Mcfarlane MD LAB - CHEMISTRY ORDERABLES Fi nal Result [address] [address], [facility] [phone] * (ABNORMAL) CBC W AUTO DIFFERENTIAL (10/27/2024 11:53 PM CDT) Only the most recent of11 resultswithin the time period is included. [facility] WBC 7.8 4.0 - 10.7 [...] ORDERABLES F inal Result [facility] [address] [place] [address], [facility] [phone] * (ABNORMAL) COMPREHENSIVE METABOLIC PANEL (10/27/2024 11:53 [...] 275 - 295 mOsm/kg 10/28/2024 12:45 AM [facility] Albumin/Globulin Ratio 0.6(L) 1.1 - 2.3 10/28/2024 12:45 AM [facility] eGFR by CKD-EPI 7(L) >=90 mL/min/1.7 3 m2 10/28/2024 12:45 AM [facility] Comment:Estimated Glomerular Filtration Rate (eGFR) calculated using the CKD-EPI Creatinine Equation (2020), per the National Kidney Foundation and [place] Society [employer] Nephrology recommendations. Blood BLOOD SPECIMEN / Unknown Venipuncture / Unknown 10/27/2024 11:53 PM CDT 10/28/2024 12:12 AM CDT us Savanna Mcfarlane MD LAB - CHEMISTRY ORDERABLES [facility] Result [facility] [address] [place] [address], [facility] [phone] * LIPASE BLOOD (10/27/2024 11:53 PM CDT) Only the most recent of3 resultswithin the time period is included. Lipase 41 8 - 78 U/L 10/28/2024 12:45 AM T [facility] Blood BLOOD SPECIMEN / Unknown Venipuncture / Unknown 10/27/2024 11:53 PM CDT 10/28/2024 12:12 AM CDT Narrative [facility] - 10/28/2024 12:45 AM CDT Lipase results from the Matthew Alinity analyzer may not be comparable with other methodologies. us Savanna Mcfarlane MD LAB - CHEMISTRY ORDERABLES Fi nal Result [facility] [address] [place] [address] [phone] * HLA ANTIBODY SCREEN LUM CLASS 2 SAB (10/27/2024 2:40 PM CDT) % PRA 0 11/04/2024 4:03 PM CDT [facility] ([facility]) Class 2 LUM SAB Moderate Risk DQ6 11/04/2024 4:03 PM CDT [facility] ([facility]) Class 2 SAB Test Date [id number] 11/04/2024 4:03 PM CDT [facility] ([facility]) Comment: Methodology - Luminex Bead-Based Immunoassay. This test was developed and its performance characteristics determined by the [facility]. It has not been cleared [...] high complexity clinical laboratory testing. CLIA ID# [id number] Performed at: [facility], [address] [place] [phone] Materials Supervisor: Steven Gonzalez, Ph.D., D([facility]), Blood BLOOD SPECIMEN / Unknown No Charge Blood Draw / Unknown 10/27/2024 2:40 PM CDT 11/01/2024 2:41 PM CDT Alan Davenport MD LAB - BLOOD BANK ORDERABLES F inal Result [facility] ([facility]) [address] [place] [id number] [place] [address] * HLA ANTIBODY SCREEN LUM CLASS 1 SAB (10/27/2024 2:40 PM CDT) % PRA 0 11/04/2024 4:03 PM CDT [facility] ([facility]) Class 1 SAB Test Date [id number] 11/04/2024 4:03 PM CDT [facility] ([facility]) Comment: Methodology - Luminex Bead-Based Immunoassay. This test was developed and its performance characteristics determined by the [facility]. It has not been cleared [...] high complexity clinical laboratory testing. CLIA ID# [id number] Performed at: [facility], [address] [place] [phone] Materials Supervisor: Steven Gonzalez, Ph.D., D([facility]), Blood BLOOD SPECIMEN / Unknown No Charge Blood Draw / Unknown 10/27/2024 2:40 PM CDT 11/01/2024 2:41 PM CDT Alan Davenport MD LAB - BLOOD BANK ORDERABLES F inal Result Performing Organization Address [facility]/ZIP Co de Phone Number [facility]) [address] [place] [address] * (ABNORMAL) PTH INTACT ([facility]) (10/21/2024 1:11 PM CDT) Only the most recent of2 resultswithin the time period is included. PTH Intact 316.8(H) 8.0 - 77.0 pg/mL 10/21/2024 1:56 PM CDT [facility] Blood BLOOD SPECIMEN / Unknown Lab Venipuncture / Unknown 10/21/2024 1:11 PM CDT 10/21/2024 1:23 PM CDT Becky Wilson MD LAB - CHEMISTRY ORDERABLES Fin al Result [facility] [address] [place] [address], [facility] [phone] * LAB MISC TEST (10/21/2024 1:11 PM CDT) Test Name PHOSPHO-TAU 217 PLASMA 10/25/2024 12:29 PM CDT [facility] Test Result See Scanned Report 10/25/2024 12:29 PM CDT [facility] Comment Ref Lab Pineda 10/25/2024 12:29 PM CDT [facility] Blood BLOOD SPECIMEN / Unknown Lab Venipuncture / Unknown 10/21/2024 1:11 PM CDT 10/21/2024 1:15 PM CDT Becky Wilson MD LAB SEND OUT Final Result Performing Organization Address City/[facility]/ZIP Co de Phone Number [facility] [address] [place] [address] * MAGNESIUM BLOOD (10/21/2024 1:11 PM CDT) Only the most recent of14 resultswithin the time period is included. [facility] Magnesium 1.6 1.6 - 2.6 mg/dL 10/21/2024 1:49 PM CDT [facility] Blood BLOOD SPECIMEN / Unknown Lab Venipuncture / Unknown 10/21/2024 1:11 PM CDT 10/21/2024 1:20 PM CDT Becky Wilson MD LAB - CHEMISTRY ORDERABLES Fin al Result [address] [address], [facility] [phone] * AMMONIA (10/21/2024 1:11 PM CDT) Ammonia 30 <=72 umol/L 10/21/2024 1:32 PM CDT [facility] Blood BLOOD SPECIMEN / Unknown Lab Venipuncture / Unknown 10/21/2024 1:11 PM CDT 10/21/2024 1:15 PM CDT us Becky Wilson MD LAB - CHEMISTRY ORDERABLES [facility] al Result [facility] [address] [place] [address], [facility] [phone] * CT Head Wo Contrast (10/19/2024 3:03 PM CDT) Only the most recent of4 resultswithin the time period is included. Anatomical Region Laterality Modality Head Computed Tomogra phy 10/19/2024 3:11 PM CDT Impressions 10/19/2024 3:41 PM CDT IMPRESSION: 1.No acute intracranial hemorrhage, territorial infarct, or significant mass effect. Report dictated by Saroj Linda MD, MD (residential leasing agent). > Dictated by Design Eng I, Raymundo Hanson MD have personally reviewed [...] tissue abnormality is identified. Procedure Note Raymundo Hansno MD - 10/19/2024 CT HEAD WO CONTRAST [...] effect. Report dictated by Saroj Linda MD, (residential leasing agent). > Dictated by Design Eng I, Raymundo Hanson MD have personally reviewed [...] (Bezet) 509 ms [facility] MUSE Calculated P Burt 69 degrees [facility] MUSE Calculated R Burt -63 degrees [facility] MUSE Calculated T Burt -90 degrees [facility] MUSE Interpretation EKG NORMAL SINUS RHYTHM LEFT ANTERIOR FASCICULAR BLOCK T WAVE ABNORMALITY, CONSIDER INFEROLATERAL ISCHEMIA PROLONGED QT ABNORMAL ECG . Confirmed by DOUG CAGLE MD ([id number]) on 10/23/2024 11:38:28 PM [facility] MUSE 10/19/2024 2:21 PM CDT 10/23/2024 11:38 PM CDT Alfreda Smith PA-C ECG ORDERABLES Edite d Result - Final Performing Organization Address City/[facility]/ZIP Co de Phone Number [facility] MUSE * (ABNORMAL) B-TYPE NATRIURETIC PEPTIDE (10/17/2024 7:33 PM CDT) Only the most recent of3 resultswithin the time period is included. BNP 471(H) <100 pg/mL 10/17/2024 10:07 PM CDT [facility] Comment: A decision threshold of 100 [...] ORDERABLES Fi nal Result [facility] [address] [place] [address], [place] [phone] * XR CHEST 1VW PORTABLE (10/09/2024 7:27 PM CDT) Only the most recent of2 resultswithin the time period is included. Anatomical Region Laterality Modality Chest Digital Radiogra phy 10/09/2024 10:4 9 PM CDT Narrative 10/10/2024 1:17 AM CDT PROCEDURE: XR CHEST 1VW PORTABLE, DATE/TIME OF EXAM: 10/09/2024 7:27 PM, LOCATION [facility] INDICATION: R06.02: Short of breath on exertion ADDITIONAL CLINICAL INFORMATION: Ordering Provider Reason For Exam: r/o effusion, pneumonia Technologist Note: Additional: COMPARISON: Chest x-ray from 10/07/2024. FINDINGS/IMPRESSION: There is no focal consolidation, pleural effusion, or pneumothorax.The cardiomediastinal silhouette is normal. No displaced fractures identified. Hardware projecting over thoracic spine. > Dictated by Otis Bocanegra MD (residential leasing agent). > Dictated by Design Eng I, Blake Plasencia MD have personally reviewed and interpreted this examination/study. > Interpreting Provider: Blake Plasencia MD on 10/10/2024 1:17 AM Procedure Note Blake Plasencia MD - 10/10/2024 PROCEDURE: XR CHEST 1VW PORTABLE, DATE/TIME OF EXAM: 10/09/2024 7:27PM, LOCATION [facility] INDICATION: R06.02: Short of breath on exertion ADDITIONAL CLINICAL INFORMATION: Ordering Provider Reason For Exam: r/o effusion, pneumonia Technologist Note: Additional: COMPARISON: Chest x-ray from 10/07/2024. FINDINGS/IMPRESSION: There is no focal consolidation, pleural effusion, or pneumothorax.The cardiomediastinal silhouette is normal. No displaced fracturesidentified. Hardware projecting over thoracic spine. > Dictated by Otis Bocanegra MD (residential leasing agent). > Dictated by Design Eng IBlake MD have personally reviewed and interpreted this examination/study. > Interpreting Provider: Blake Plasencia MD on 10/10/2024 1:17 AM us Anjali Avelar REGISTERED NURSE OBSTETRICS-FLIGHT TEST SUPERVISOR DIAGNOSTIC IMAGING O RDERABLES Final Result * (ABNORMAL) BLOOD GASES ABBEY + COOX PANEL (10/09/2024 4:39 PM [facility]) Only the most recent of2 resultswithin the [...] Venous 57(L) >=70 % 09/18 5:04 PM [facility] Comment:A^Absorbance Error FI O2 Mixed Venous 21.0 % 2024 5:04 PM [facility] Blood BLOOD SPECIMEN / Unknown Venipuncture / Unknown 10/09/2024 4:39 PM CDT 10/09/2024 4:56 PM CDT Narrative [facility] - 10/09/2024 5:04 PM CDT Carboxyhemoglobin Normal Concentration: Non-smokers: 0-2%; Smokers: 0-9%; Toxic: >20% Anjali Avelar REGISTERED NURSE OBSTETRICS-[facility] LAB - BLOOD GASES OR DERABLES Final Result Performing Organization Address [facility]/ZIP Co de Phone Number [address] [address], [facility] [phone] * PHOSPHORUS BLOOD (10/09/2024 4:39 PM CDT) Only the most recent of8 resultswithin the time period is included. Phosphorus 4.9 2.8 - 5.1 mg/dL 10/09/2024 5:29 PM CDT [facility] Blood BLOOD SPECIMEN / Unknown Venipuncture / Unknown 10/09/2024 4:39 PM CDT 10/09/2024 4:58 PM CDT Anjali Avelar [facility] CHEMISTRY ORDE RABLES Final Result Performing Organization Address [facility]/ZIP Co de Phone Number [address] [address], [facility] [phone] * (ABNORMAL) URINALYSIS REFLEX MICROSCOPIC REFLEX CULTURE (10/07/2024 6:16 PM CDT) Color UA Yellow Yellow, Straw 10/07/2024 6:39 PM CDT [facility] Clarity UA Ex. Turbid(A) Clear 10/07/2024 6:39 PM CDT [facility] Glucose UA Normal Normal 10/07/2024 6:39 PM CDT [facility] Bilirubin UA Negative Negative 10/07/2024 6:39 PM CDT [facility] Ketone UA Negative Negative 10/07/2024 6:39 PM CDT [facility] Specific Galloway UA 1.015 1.005 - 1.030 10/07/2024 6:39 PM CDT [facility] Blood UA 3+(A) Negative 10/07/2024 6:39 [...] UA 2+(A) None Seen 10/07/2024 6:39 PM [facility] Squamous Epithelial Cells None Seen 0 - 5 /hpf 10/07/2024 6:39 PM [facility] Transitional Epithelial Cell UA 0-2(A) None Seen /HPF 10/07/2024 6:39 PM [facility] Budding Yeast Moderate(A) None seen /hpf 10/07/2024 6:39 PM [facility] Reflex Status Culture to follow 10/07/2024 6:39 PM [facility] Urine URINE SPECIMEN OBTAINED VIA INDWELLING URINARY CATHETER / Unknown Collection / Unknown 10/07/2024 6:16 PM CDT 10/07/2024 6:19 PM CDT [facility] - 10/07/2024 6:39 PM CDT us Richard Sylvester MD LAB - URINALYSIS ORDERABLES Kenna l Result [facility] [address] [place] [phone], [facility] [phone] * (ABNORMAL) CULTURE URINE (10/07/2024 6:16 PM CDT) Culture Urine 50,000-100,000 CFU/mL Klebsiella pneumoniae(A) MUSHTAQ 10/09/2024 5:54 AM CDT [facility] Urine URINE SPECIMEN OBTAINED VIA INDWELLING URINARY CATHETER / Unknown Collection / Unknown 10/07/2024 6:16 PM CDT 10/07/2024 6:19 PM CDT Narrative [facility] - 10/09/2024 5:54 AM CDT [...] LAB - MICROBIOLOGY ORDERABLES Fi nal Result [facility] [address] [place] [address], [facility] [phone] * VAS Arterial Multilevel Le (10/05/2024 12:24 PM CDT) Anatomical Region Laterality Modality Intravascular Ul trasound 10/05/2024 11:3 4 AM CDT Narrative Procedure Note Elroy Holcomb MD - 10/05/2024 us Guy Messina MD VASCULAR LAB ORDERABLES Edit ed Result - Final * (ABNORMAL) HEMOGLOBIN A1C (09/25/2024 5:06 AM CDT) Hemoglobin A1c 5.8(H) <=5.6 % 09/25/2024 8:19 AM CDT [facility] Estimated Average Glucose 120 mg/dL 09/25/2024 8:19 AM CDT [facility] Comment: HbA1c Interpretation: Normal : < 5.7% Pre-diabetes: 5.7-6.4% Diabetes: Equal to or greater than 6.5% Test results diagnostic of diabetes should be repeated for confirmation. Treatment target values recommended by ADA and other clinical organizations should be used to evaluate metabolic control in patients. Reference: [place] Diabetes Association, Standards of Care in Diabetes [...] LAB - CHEMISTRY ORDERABLES F inal Result [facility] [address] [place] [address], [place] [phone] * (ABNORMAL) RENAL FUNCTION PANEL (09/24/2024 7:53 [...] 3.5 - 4.5 mmol/L 09/24/2024 8:47 PM [facility] Chloride 97(L) 98 - 107 mmol/L 09/24/2024 8:47 PM [facility] CO2 24 22 - 29 mmol/L 09/24/2024 8:47 PM [facility] Glucose 93 70 - 99 mg/dL 09/24/2024 8:47 PM [facility] Albumin 1.8(L) 3.4 - 5.0 g/dL 09/24/2024 8:47 PM [facility] Calcium 8.4 8.4 - 10.2 mg/dL [...] (2020), per the National Kidney Foundation and [place] Society of Nephrology recommendations. Blood BLOOD SPECIMEN / Unknown Lab Venipuncture / Unknown 09/24/2024 7:53 PM CDT 09/24/2024 8:15 PM T us Guy Messina MD LAB - CHEMISTRY ORDERABLES F inal Result [address] [address], [facility] [phone] * TSH REFLEX FREE T4 (09/24/2024 12:02 PM CDT) Pathologist [facility] TSH 1.567 0.350 - 4.940 uIU/mL 09/24/2024 12:57 PM CDT [facility] Blood BLOOD SPECIMEN / Unknown 09/24/2024 12:02 PM CDT 09/24/2024 12:18 PM CDT Alexis Rodrigez III, MD LAB - CHEMISTRY ORDERAB LES Final Result Performing Organization Address [facility] Co de Phone Number [address] [address], [facility] [phone] * (ABNORMAL) VITAMIN B1 (09/24/2024 12:02 PM CDT) Pathologist [facility] Vitamin B1 Whole Blood 205(H) 70 - 180 nmol/L 09/27/2024 7:16 PM CDT VADang Le ([facility]) Comment: INTERPRETIVE INFORMATION: Vitamin B1, Whole Blood This assay measures the concentration of thiamine diphosphate (TDP), the primary active form of vitamin B1. Approximately 90 percent of vitamin B1 present in whole blood is TDP. Thiamine and thiamine monophosphate, which comprise the remaining 10 percent, are not measured. This test was developed and its performance characteristics determined by [facility]. It has not been cleared or approved by the US Food and Drug Administration. This test was performed in a CLIA certified laboratory and is intended for clinical purposes. Performed By: [facility] [address] [place] [address] Lead Caster Helper: Mk Egan MD, PhD CLIA Number: [id number] Blood BLOOD SPECIMEN / Unknown 09/24/2024 12:02 PM CDT 09/24/2024 12:11 PM CDT us Alexis Rodrigez III, MD LAB - CHEMISTRY ORDERAB LES Final Result Performing Organization Address City/[facility] Co de Phone Number [facility]) [address] [place] [phone], [facility] * (ABNORMAL) VITAMIN B12 (09/24/2024 12:02 PM CDT) Vitamin B12 1,151(H) 213 - 816 pg/mL 09/24/2024 12:57 PM CDT [facility] Blood BLOOD SPECIMEN / Unknown 09/24/2024 12:02 PM CDT 09/24/2024 12:18 PM CDT us Alexis Rodrigez III, MD LAB - CHEMISTRY ORDERAB LES Final Result [address] [address], [facility] [phone] * (ABNORMAL) TROPONIN-I HIGH SENSITIVE (09/24/2024 5:08 AM CDT) Pathologist [facility] Troponin I High Sensitive 83(H) <=35 ng/L 09/24/2024 6:10 AM CDT [facility] Blood BLOOD SPECIMEN / Unknown Lab Venipuncture / Unknown 09/24/2024 5:08 AM CDT 09/24/2024 5:28 AM CDT us Jennifer Winn MD LAB - CHEMISTRY ORDERABLES F inal Result Performing Organization Address [facility]/ZIP Co de Phone Number [address] [address], [place] [phone] * CT Lumbar Spine Wo Contrast (09/23/2024 [...] Report dictated by Branden Jha MD (residential leasing agent) 09/23/2024 5:45 PM. > Dictated by Design Eng I, Jana Clark MD have personally reviewed and interpreted this examination/study. > Interpreting Provider: Jana Clark MD on 09/23/2024 6:29 PM Narrative 09/23/2024 6:29 PM CDT PROCEDURE: CT HEAD WO CONTRAST, CT LUMBAR SPINE WO CONTRAST, CT THORACIC SPINE WO CONTRAST, CT CERVICAL SPINE WO CONTRAST, DATE/TIME OF EXAM: 09/23/2024 5:32 PM, LOCATION [facility] INDICATION: W19.XXXA: Fall, initial encounter R41.82: Altered mental status, unspecified altered mental status type ADDITIONAL CLINICAL INFORMATION: Ordering Provider Reason For Exam: r/o bleed, fx (accession [id number]), r/o fx (accession [id number]), r/o fx (accession [id number]), r/o fx (accession [id number]) Technologist Note: None. Additional: 69 year old [...] DATE/TIME OF EXAM: 09/23/2024 5:32 PM, LOCATION [facility] INDICATION: W19.XXXA: Fall, initial encounter R41.82: Altered mental status, unspecified altered mental status type ADDITIONAL CLINICAL INFORMATION: Ordering Provider Reason For Exam: r/o bleed, fx (accession [id number]), r/o fx (accession [id number]), r/o fx (accession [id number]), r/o fx (accession [id number]) Technologist Note: None. Additional: 69 year old [...] Report dictated by Branden Jha MD (residential leasing agent) 09/23/2024 5:45 PM. > Dictated by Design Eng I, Jana Clark MD have personally reviewed [...] Report dictated by Branden Jha MD (residential leasing agent) 09/23/2024 5:45 PM. > Dictated by Design Eng I, Jana Clark MD have personally reviewed and interpreted this examination/study. > Interpreting Provider: Jana Clark MD on 09/23/2024 6:29 PM Narrative 09/23/2024 6:29 PM CDT PROCEDURE: CT HEAD WO CONTRAST, CT LUMBAR SPINE WO CONTRAST, CT THORACIC SPINE WO CONTRAST, CT CERVICAL SPINE WO CONTRAST, DATE/TIME OF EXAM: 09/23/2024 5:32 PM, LOCATION [facility] INDICATION: W19.XXXA: Fall, initial encounter R41.82: Altered mental status, unspecified altered mental status type ADDITIONAL CLINICAL INFORMATION: Ordering Provider Reason For Exam: r/o bleed, fx (accession [id number]), r/o fx (accession [id number]), r/o fx (accession [id number]), r/o fx (accession [id number]) Technologist Note: None. Additional: 69 year old [...] DATE/TIME OF EXAM: 09/23/2024 5:32 PM, LOCATION [facility] INDICATION: W19.XXXA: Fall, initial encounter R41.82: Altered mental status, unspecified altered mental status type ADDITIONAL CLINICAL INFORMATION: Ordering Provider Reason For Exam: r/o bleed, fx (accession [id number]), r/o fx (accession [id number]), r/o fx (accession [id number]), r/o fx (accession [id number]) Technologist Note: None. Additional: 69 year old [...] Report dictated by Branden Jha MD (residential leasing agent) 09/23/2024 5:45 PM. > Dictated by Design Eng I, Jana Clark MD have personally reviewed and interpretedthis examination/study. > Interpreting Provider: Jana Clark MD on 09/23/2024 6:29 PM Moon Lweis PA-C CT ORDERABLES Final Result * CT [...] Report dictated by Branden Jha MD (residential leasing agent) 09/23/2024 5:45 PM. > Dictated by Design Eng I, Jana Clark MD have personally reviewed and interpreted this examination/study. > Interpreting Provider: Jana Clark MD on 09/23/2024 6:29 PM Narrative 09/23/2024 6:29 PM CDT PROCEDURE: CT HEAD WO CONTRAST, CT LUMBAR SPINE WO CONTRAST, CT THORACIC SPINE WO CONTRAST, CT CERVICAL SPINE WO CONTRAST, DATE/TIME OF EXAM: 09/23/2024 5:32 PM, LOCATION [facility] INDICATION: W19.XXXA: Fall, initial encounter R41.82: Altered mental status, unspecified altered mental status type ADDITIONAL CLINICAL INFORMATION: Ordering Provider Reason For Exam: r/o bleed, fx (accession [id number]), r/o fx (accession [id number]), r/o fx (accession [id number]), r/o fx (accession [id number]) Technologist Note: None. Additional: 69 year old [...] DATE/TIME OF EXAM: 09/23/2024 5:32 PM, LOCATION [facility] INDICATION: W19.XXXA: Fall, initial encounter R41.82: Altered mental status, unspecified altered mental status type ADDITIONAL CLINICAL INFORMATION: Ordering Provider Reason For Exam: r/o bleed, fx (accession [id number]), r/o fx (accession [id number]), r/o fx (accession [id number]), r/o fx (accession [id number]) Technologist Note: None. Additional: 69 year old [...] Report dictated by Branden Jha MD (residential leasing agent) 09/23/2024 5:45 PM. > Dictated by Design Eng I, Jana Clark MD have personally reviewed [...] Report dictated by Branden Jha MD, (residential leasing agent). > Dictated by Design Eng I, Nicole Bernabe MD have personally reviewed and interpreted this examination/study. > Interpreting Provider: Nicole Bernabe MD on 09/24/2024 9:17 AM Narrative 09/24/2024 9:17 AM CDT PROCEDURE: XR FOOT LEFT 3VW OR MORE, DATE/TIME OF EXAM: 09/23/2024 5:34 PM, LOCATION [facility] INDICATION: W19.XXXA: Fall, initial encounter ADDITIONAL [...] MORE, DATE/TIME OF EXAM: 09/23/2024 5:34PM, LOCATION [facility] INDICATION: W19.XXXA: Fall, initial encounter ADDITIONAL [...] Report dictated by Branden Jha MD, (residential leasing agent). > Dictated by Design Eng I, Nicole Bernabe MD have personally reviewed and interpreted this examination/study. > Interpreting Provider: Nicole Bernabe MD on 09/24/2024 9:17 AM us Moon Lewis PA-C DIAGNOSTIC IMAGING ORDERABLES F inal Result * (ABNORMAL) C-REACTIVE PROTEIN (09/23/2024 4:52 PM CDT) Only the most recent of2 resultswithin the time period is included. C-Reactive Protein 1.6(H) <=0.5 mg/dL 09/23/2024 5:42 PM CDT [facility] Blood BLOOD SPECIMEN / Unknown Venipuncture / Unknown 09/23/2024 4:52 PM CDT 09/23/2024 4:56 PM CDT us Moon Lewis PA-C LAB - CHEMISTRY ORDERABLES Kenna l Result [facility] [address] [place] [address], [place] [phone] * (ABNORMAL) ERYTHROCYTE SEDIMENTATION RATE (09/23/2024 4:52 PM CDT) Only the most recent of2 resultswithin the time period is included. [facility] Erythrocyte Sedimentation Rate Westergren 116(H) 0 - 20 MM/HR 09/23/2024 5:21 PM CDT [facility] Blood BLOOD SPECIMEN / Unknown Venipuncture / Unknown 09/23/2024 4:52 PM CDT 09/23/2024 5:05 PM CDT us Moon Lewis PA-C LAB - HEMATOLOGY ORDERABLES Fin al Result [facility] [address] [place] [address], [place] [phone] * (ABNORMAL) DIFFERENTIAL MANUAL (09/23/2024 4:52 PM CDT) Only the most recent of3 resultswithin the time period is included. [facility] Neutrophil % 78(H) 41 - 74 % 09/23/2024 5:[facility] Lymphocyte % 10(L) 17 - 47 % 09/23/2024 5:33 PM [facility] Monocyte % 10 3 - 11 % 09/23/2024 5:33 PM [facility] Eosinophil % 1 0 - 7 % 09/23/2024 5:33 PM [facility] Metamyelocyte % 1(H) 0% % 5:33 PM [facility] Neutrophil Absolute 8.66(H) 1.60 - 7.50 x10E9/L 09/23/2024 5:33 PM [facility] Lymphocyte Absolute 1.11 1.00 - 4.40 x10E9/L 09/23/2024 5:33 PM [facility] Monocyte Absolute 1.11(H) 0.15 - 1.00 x10E9/L 09/23/2024 5:33 PM [facility] Eosinophil Absolute 0.11 0.00 - 0.60 x10E9/L 09/23/2024 5:33 PM [facility] RBC Morphology REVIEWED 09/23/2024 5:33 PM [facility] Microcytosis MODERATE(A) (none) 09/23/2024 5:33 PM [facility] Blood BLOOD SPECIMEN / Unknown Venipuncture / Unknown 09/23/2024 4:52 PM CDT 09/23/2024 5:05 PM CDT us Moon Lewis PA-C LAB - HEMATOLOGY ORDERABLES Fin al Result [facility] [address] [place] [address], [facility] [phone] * (ABNORMAL) CBC W/O DIFFERENTIAL (09/16/2024 1:01 [...] 09/16/2024 1:43 AM CDT [facility] MPV 10.3 7.8 - 11.4 fL 09/16/2024 1:43 AM CDT [facility] Blood BLOOD SPECIMEN / Unknown Lab Venipuncture / Unknown 09/16/2024 1:01 AM CDT 09/16/2024 1:40 AM CDT us Alexis Rodrigez III, MD LAB - HEMATOLOGY ORDERA BLES Final Result Performing Organization Address City/[facility]/ZIP Co de Phone Number [address] [address], [place] [phone] * VANCOMYCIN LEVEL RANDOM (09/15/2024 4:10 PM CDT) Only the most recent of3 resultswithin the time period is included. Vancomycin Random 31.2 Therapeutic Ranges not established for random specimens ug/mL 09/15/2024 6:00 PM CDT [facility] Blood BLOOD SPECIMEN / Unknown Lab Venipuncture / Unknown 09/15/2024 4:10 PM CDT 09/15/2024 4:51 PM CDT Narrative [facility] - 09/15/2024 6:00 PM CDT See institution protocol. us Aureliano Pierce MD LAB - CHEMISTRY ORDERAB LES Final Result Performing Organization Address [facility]/ZIP Co de Phone Number [address] [address], [place] [phone] * LACTIC ACID BLOOD (09/14/2024 3:32 PM CDT) Only the most recent of4 resultswithin the time period is included. Lactic Acid-Stat 2.0 <=2.0 mmol/L 09/14/2024 4:17 PM CDT [facility] Blood BLOOD SPECIMEN / Unknown Lab Venipuncture / Unknown 09/14/2024 3:32 PM CDT 09/14/2024 3:51 PM CDT us Alexis Rodrigez III, MD LAB - CHEMISTRY ORDERAB LES Final Result Performing Organization Address City/[facility]/ZIP Co de Phone Number [address] [address], [facility] [phone] * (ABNORMAL) HGB HCT PANEL (09/14/2024 1:24 PM CDT) Only the most recent of2 resultswithin the time period is included. Hemoglobin 8.7(L) 13.3 - 17.5 g/dL 09/14/2024 1:41 PM CDT [facility] Hematocrit 25.6(L) 38.7 - 51.1 % 09/14/2024 1:41 PM CDT [facility] Blood BLOOD SPECIMEN / Unknown Venipuncture / Unknown 09/14/2024 1:24 PM CDT 09/14/2024 1:30 PM CDT us Alexis Rodrigez III, MD LAB - HEMATOLOGY ORDERA BLES Final Result Performing Organization Address City/[facility]/ZIP Co de Phone Number [address] [address], [facility] [phone] * PATHOLOGY TISSUE (09/14/2024 11:45 AM CDT) Case Report Surgical Pathology Report Case: [id number] Authorizing Provider: Elroy Holcomb MD Collected: 09/14/2024 11:45 AM Ordering Location: [facility] RITO OP Received: 09/14/2024 12:47 PM Pathologist: Charmaine Myrick MD Specimen: Toe, Left, Left Great Toe 09/16/2024 11:40 AM CDT [facility] Final Diagnosis Toe, left great, amputation (A): - Skin ulceration and necrosis - Acute osteomyelitis - Bone margin negative for acute inflammation - Skin and soft tissue margin appears viable 09/16/2024 11:40 AM CDT [facility] at 1140 CDT Microscopic Description and Comment Microscopic examination substantiates the diagnosis. 09/16/2024 11:40 AM CDT [facility] PATH[facility] Clinical History The patient is a 69-year-old man with first toe dry gangrene and history of PAD. 09/16/2024 11:40 AM [facility] Gross Description The requisition [...] hemorrhage. There are no additional gross lesions. [employer] sections are submitted as follows: A1-skin and soft tissue to resection margin, medial and dorsal surfaces A2-bony resection margin, decalcified A3-partial proximal cross-section with surrounding mummification, decalcified IKD 09/16/2024 11:40 AM [facility] PATH[facility] LAB Pathologist Location at [facility] 09/16/2024 11:40 AM [facility] Disclaimer The performance characteristics of all immunohistochemical and indirect immunofluorescence stains (if any) cited in this report were determined by the Histopathology Laboratory of [facility]. Some of these tests were developed [...] the attending (teaching) pathologist. 09/16/2024 11:40 AM [facility] LAB Embedded Images 09/16/2024 11:40 AM [facility] Amputation, Traumatic (Gross Only) (Toe, Left) 09/14/2024 11:45 AM CDT 09/14/2024 12:47 PM CDT Comment:Pre-op diagnosis: Toe gangrene (HCC) [I96] us Elroy Holcomb MD LAB - PATHOLOGY/CYTOLOGY O RDERABLES Final Result [facility] [address] [place] [address], [facility] [phone] * Peripheral Nerve Block (09/14/2024 10:38 AM [...] fungus isolated MUSHTAQ 10/11/2024 8:05 AM CDT [facility] Fungus Stain No yeast or hyphae seen 10/11/2024 8:05 AM CDT [facility] Microbiology PERITONEAL DIALYSATE SPECIMEN / Unknown Collection / Unknown 09/13/2024 8:08 PM CDT 09/13/2024 8:10 PM CDT us Alexis Rodrigez III, MD LAB - MICROBIOLOGY ORDE RABLES Final Result [facility] [address] [place] [address], [facility] [phone] * DIFFERENTIAL MANUAL FLUID (09/13/2024 8:08 PM CDT) Fluid Source Peritoneal 09/13/2024 9:03 PM CDT [facility] Body Fluid Total Cell Count 100 x10E6/L 09/13/2024 9:03 PM CDT [facility] Neutrophils Fluid Percent 11 % 09/13/2024 9:03 PM CDT [facility] Lymphocytes Fluid Percent 6 % 09/13/2024 9:03 PM CDT [facility] Macrophages Fluid Percent 79 % 09/13/2024 9:03 PM CDT [facility] Mesothelial Cells Fluid Percent 4 % 09/13/2024 9:03 PM CDT [facility] Fluid PERITONEAL FLUID / Unknown Collection / Unknown 09/13/2024 8:08 PM CDT 09/13/2024 8:10 PM CDT Narrative [facility] - 09/13/2024 9:03 PM CDT No reference ranges established for body fluid differential cell counts. The test results must be integrated into the clinical context for interpretation. Alexis Rodrigez III, MD LAB - BODY FLUID ORDERA BLES Final Result [facility] [address] [place] [address], [facility] [phone] * CULTURE FLUID+GRAM STAIN (09/13/2024 8:08 PM CDT) Culture No growth MUSHTAQ 09/17/2024 12:38 AM CDT [facility] Gram Stain Light Polymorphonuclear cells 09/17/2024 12:38 AM CDT [facility] Gram Stain No organisms seen 025 12:38 AM CDT [facility] Other PERITONEAL DIALYSATE SPECIMEN / Unknown Collection / Unknown 09/13/2024 8:08 PM CDT 09/13/2024 8:10 PM CDT Alexis Rodrigez III, MD LAB - MICROBIOLOGY PK ZENG Final Result Performing Organization Address City/[facility]/ZIP Co de Phone Number [facility] [address] [place] [address], [facility] [phone] * CULTURE ANAEROBE (09/13/2024 8:08 PM CDT) Culture No anaerobic organisms isolated MUSHTAQ 09/19/2024 8:26 AM CDT [facility] Microbiology PERITONEAL DIALYSATE SPECIMEN / Unknown Collection / Unknown 09/13/2024 8:08 PM CDT 09/13/2024 8:11 PM CDT Alexis Rodrigez III, MD LAB - MICROBIOLOGY PK ZENG Final Result [facility] [address] [place] [address], [facility] [phone] * CELL COUNT W DIFFERENTIAL FLUID (09/13/2024 8:08 PM CDT) Fluid Source Peritoneal 09/13/2024 9:03 PM CDT [facility] Fluid Appearance CLEAR 09/13/2024 9:03 PM CDT [facility] Fluid Color YELLOW 09/13/2024 9:03 PM CDT [facility] Total Nucleated Cells Fluid 279 Reference Range Not Established x10E6/L 09/13/2024 9:03 PM CDT [facility] RBC Count Fluid <2,000 Reference Range Not Established x10E6/L 09/13/2024 9:03 PM CDT [facility] Fluid PERITONEAL FLUID / Unknown Collection / Unknown 09/13/2024 8:08 PM CDT 09/13/2024 8:10 PM CDT Narrative [facility] - 09/13/2024 9:03 PM CDT No reference ranges established for body fluid cell counts. Any reference ranges provided are derived from published literature. The test results must be integrated into the clinical context for interpretation. us Alexis Rodrigez III, MD LAB - BODY FLUID ORDERA BLES Final Result [facility] [address] [place] [address], [facility] [phone] * VAS Bilateral Venous Duplex Le (09/13/2024 4:34 PM CDT) Anatomical Region Laterality Modality Lower Extremity Ultrasound 09/13/2024 4:18 PM CDT Narrative Procedure Note Lalit Castanon MD - 09/13/2024 us Alexis Rodrigez III, MD VASCULAR LAB ORDERABLES Edited Result - Final * SARS-COV-2 (COVID-19) RAPID (09/13/2024 6:02 AM CDT) COVID-19 PCR Not detected Not detected 09/14/19 25 6:36 AM CDT [facility] Microbiology SPECIMEN FROM NASOPHARYNGEAL STRUCTURE / Unknown Collection / Unknown 09/13/2024 6:02 AM CDT 09/13/2024 6:04 AM CDT Narrative [facility] - 09/13/2024 6:36 AM CDT The [...] LAB - MICROBIOLOGY ORDERABLE S Final Result [address] [address], [facility] [phone] * TRANSFUSE RED BLOOD CELL LEUKOREDUCED UNIT(S) [...] Dictated by Sera Chowdhury Dr, MD (residential leasing agent). ITerry MD have personally reviewed and interpreted this examination/study. > Interpreting Provider: Terry Ramos MD on 09/13/2024 9:42 AM Narrative 09/13/2024 9:42 AM CDT PROCEDURE: CT ANGIO AORTA FOR DISSECTION, DATE/TIME OF EXAM: 09/13/2024 12:28 AM, LOCATION [facility] INDICATION: R10.9: Abdominal pain, unspecified abdominal [...] DATE/TIME OF EXAM: 09/13/2024 12:28 AM, LOCATION [facility] INDICATION: R10.9: Abdominal pain, unspecified abdominal [...] Dictated by Sera Chowdhury Dr, MD (residential leasing agent). I, Lien. Constantino Ramos MD have personally reviewed and interpreted this examination/study. > Interpreting Provider: Terry Ramos MD on 09/13/2024 9:42 AM Yuriy Lopez MD CT ORDERABLES Final Result * PREPARE (CROSSMATCH) RBC UNIT(S), 1 Units (09/12/2024 11:30 PM CDT) Unit Description AS1 LR PRBC [facility] BLOOD BANK LAB Unit ABO O [facility] BLOOD BANK LAB Unit Rh NEG [facility] BLOOD BANK LAB Product Number R43 [facility] B LOOD BANK LAB Unit Donor # [id number] [facility] BLOOD BANK LAB Unit Status transfused [facility] BLO OD BANK LAB Product Code [id number] [facility] BLO OD BANK LAB Blood Type Barcode 9500 [facility] BLOOD BANK LAB Expiration Date [facility] BLOOD BANK LAB Blood Bank BLOOD SPECIMEN / Unknown 09/12/2024 11:30 PM CDT 09/12/2024 11:37 PM CDT Result [facility] Yuriy Lopez MD LAB - BLOOD BANK ORDERABLES Final Result Performing Organization Address City/[facility]/ZIP Co de Phone Number [facility] BLOOD BANK LAB [address] [place] [address], [facility] [phone] * TYPE + SCREEN PANEL (09/12/2024 11:30 PM CDT) Antibody Screen NEG 12:16 AM CDT [facility] BLOOD BANK LAB ABO Rh O NEG 09/13/2024 12:16 AM CDT [facility] BLOOD BANK LAB Blood Bank BLOOD SPECIMEN / Unknown Venipuncture / Unknown 09/12/2024 11:30 PM CDT 09/12/2024 11:37 PM CDT Yuriy Lopez MD LAB - BLOOD BANK ORDERABLES Final Result [facility] BLOOD BANK LAB [address] [place] [address], [facility] [phone] * CULTURE BLOOD (09/12/2024 10:00 PM CDT) Only the most recent of4 resultswithin the time period is included. Culture No growth day 5 [facility] 09/18/2024 1:30 AM CDT [facility] MICROBIOLOGY Blood PERIPHERAL BLOOD / Unknown Venipuncture / Unknown 09/12/2024 10:00 PM CDT 09/12/2024 10:21 PM CDT Yuriy Lopez MD LAB - MICROBIOLOGY ORDERABLE S Final Result [facility] MICROBIOLOGY [address] [place] [address], [facility] [phone] * VAS Bilateral Venous Mapping (09/07/2024 2:24 [...] thickening. Report dictated by Freddie Durham MD, (Design Eng). I, Junior Hurley MD have personally reviewed [...] thickening. Report dictated by Freddie Durham MD, (Design Eng). I, Junior Hurley MD have personally reviewed and interpreted this examination/study. > Interpreting Provider: Junior Hurley MD on 56:26 AM us Charmaine Khalil MD CT ORDERABLES Final Result * (ABNORMAL) POTASSIUM WHOLE BLD (09/01/2024 3:54 PM CDT) Potassium Whole Blood 3.1(L) 3.5 - 5.5 mmol/L 09/01/2024 4:05 PM CDT [facility] Blood WHOLE BLOOD SPECIMEN / Unknown Venipuncture / Unknown 09/01/2024 3:54 PM CDT 09/01/2024 3:57 PM CDT us Jaqueline Correa Mars REGISTERED NURSE OBSTETRICS-FLIGHT TEST SUPERVISOR LAB - CHEMISTRY ORDERABL ES Final Result [facility] [address] [place] [address], [facility] [phone] * CCL STAGED PERC CORONARY INTERVENTION, CCL [...] continuing DAPT Cardiology clinic f/u Jaqueline Crews REGISTERED NURSE OBSTETRICS-FLIGHT TEST SUPERVISOR CV CARDIAC CATH CUPID CT OCS Final Result * (ABNORMAL) IRON + TRANSFERRIN PANEL (08/19/2024 1:41 AM CDT) Pathologist [facility] Iron 40(L) 50 - 175 ug/dL 08/19/2024 2:17 AM CDT [facility]ORY HOSPITAL Transferrin 116(L) 174 - 382 mg/dL 08/19/2024 2:17 AM CDT [facility] LABORATORY [facility] Transferrin Saturation % 28 16 - 50 % 08/19/2024 2:17 AM CDT [facility] LABORATORY [facility] TIBC Calculated 145(L) 240 - 450 ug/dL 08/19/2024 2:17 AM CDT [facility] LABORATORY [facility] Blood BLOOD SPECIMEN / Unknown Lab Venipuncture / Unknown 08/19/2024 1:41 AM CDT 08/19/2024 2:01 AM CDT Hannah Goodman MD LAB - CHEMISTRY ORDERABLES F inal Result Performing Organization Address City/[facility]/ZIP Co de Phone Number [address] [address], [place] [phone] * (ABNORMAL) FERRITIN (08/19/2024 1:41 AM CDT) Ferritin 560(H) 22 - 275 ng/mL 08/19/2024 2:35 AM CDT [facility] Blood BLOOD SPECIMEN / Unknown Lab Venipuncture / Unknown 08/19/2024 1:41 AM CDT 08/19/2024 2:01 AM CDT Hannah Goodman MD LAB - CHEMISTRY ORDERABLES F inal Result Performing Organization Address [facility] Co de Phone Number [address] [address], [place] [phone] * VITAMIN D 25-HYDROXY (08/19/2024 1:23 AM CDT) Vitamin D, 25 Hydroxy 36.2 30.0 - 80.0 ng/mL 08/19/2024 2:24 AM CDT [facility] Comment: The [...] ORDERABLES F inal Result Performing Organization Address City/[facility]/ZIP Co de Phone Number [address] [address], [place] [phone] * CCL PERIPHERAL ANGIOGRAM (08/18/2024 2:33 PM CDT) Anatomical Region Laterality Modality X-Ray Angiograph y Narrative 08/19/2024 2:24 PM CDT Left leg angiogram showed left AT severe diffuse disease with multiple subtotal occlusion and left PT severe diffuse disease with MAIL CARRIER of distal PT without clear reconstitution. Successful [...] 0.018 CXI microcatheter with multiple wires(Command 18/command 14/Tool Technician 200) to get to great toe branch of dorsalis pedis using submersible pilot [address]. - the AT-DP lesion was dilated with balloons mentioned in figure. - We turn our attention to PT. We crossed the PT MAIL CARRIER with 0.018 CXI microcatheter with multiple wires (command 18, command 14, Tool Technician 200) and able to go to lateral [...] using angiography. Left Posterior Tibial: Ost L TEACHER'S ASSISTANT to Dist L TEACHER'S ASSISTANT lesion is 100% stenosed. Stenosis was measured [...] 10% residual stenosis post intervention. Ost L TEACHER'S ASSISTANT to Dist L TEACHER'S ASSISTANT lesion: Angioplasty: Angioplasty independent of stent deployment [...] of Plavix. -recommend close follow up with clean energy policy analyst and follow up with me in clinic with JOSIANE/TBI. Hannah Goodman MD CV INVASIVE VASCULAR AND IR CUPID PROC Final Result * ACT LR - POCT ([facility]) (08/18/2024 2:08 PM CDT) Only the most recent of4 resultswithin the time period is included. [facility] ACT LR 231 See result comments sec 08/19/2024 9:02 AM CDT [facility] Blood BLOOD SPECIMEN / Unknown 08/18/2024 2:08 PM CDT 08/19/2024 9:02 AM CDT Narrative [facility] - 08/19/2024 9:02 AM CDT ACT-LR Therapeutics ranges are: Cardiac dental laboratory technology teacher = 200-300 seconds Sheath pull = ACT [...] COAGULATION ORDERABLES Final Result [facility] [address] [place] [address], [place] [phone] * HEPATITIS C ANTIBODY (06/16/2024 4:15 PM CDT) [facility] Hepatitis C Antibody Non-react sylvie Non-reac tive 06/16/2024 5:50 PM CDT [facility] Comment:Hepatitis C Antibody screen indicates no [...] Alan Davenport MD LAB - CHEMISTRY ORDERABLES [facility] Result [facility] [address] [place] [address], [facility] [phone] from Last 3 Months or Most Recently Relevant to Health Maintenance Insurance AETNA AETNA MEDICARE [facility] AETNA MEDICARE ADV * Guarantor: GRACE INTERIANO Account Type Relation to Patient Date of Phone Billing Address Personal/Family [facility] [place] [address] * Guarantor: GRACE INTERIANO Account Type Relation to Patient Date of Phone Billing Address Personal/Family [facility] [place] [address] [facility] [place] [address] * Guarantor: GRACE INTERIANO Account Type Relation to Patient Date of Phone Billing Address Personal/Family Spouse [facility] [place] [address] Advance Directives * Full Code (Latest Code [...] 3:16 PM 08/19/2024 4:36 PM Care Teams Shoes Hand Sewer Relationship Specialty Start Date End Date Jeff Strickland MD [address] [place] [address] PCP - General 03/05/18 [place] [address] [address] Orthopedic Surgery 03/28/17
--- OUTSIDE RECORDS SUMMARY | 2024-11-18 21:58 | XMS_ITS | Clinical Summary ---
Author Organization [facility] Address [address] [place] [address] Care Team Providers Care All Source Intelligence Name Role Phone Jeff Strickland MD Primary [...] mouth daily. Active nystatin-triamc inolone (MYCOLOG II) 102881-0.1 UNIT/GM-% Cream 5 Active ondansetron (ZOFRAN-ODT) 4 [...] 10/29/2024 Telephone [facility] [place] [address] Suly Smith APRN, BURGLAR ALARM OPERATOR 10/15/2024 Telephone [facility] [place] [address] Hannah Goodman MD 10/14/2024 2:40 PM CDT Clinical Support [facility] [place] [phone] NurseAsim Cardiology Dressing change (Primary Dx) Discharge [...] st Contact Info) Description 04/11/2025 11:30 AM ADMINISTRATION DEAN Office Visit [facility] - [facility]iology - [place] [address] [place] [address] He Maylin, DO 2 [facility] [address] [address] Health Maintenance Due Date Last Done Comments [...] topic Insurance MEDICARE C AETNA Care Teams All Source Intelligence Relationship Specialty Start Date End Date Jeff Strickland MD [address] [place] [address] PCP - General Family Medicine 10/14/24
--- OUTSIDE RECORDS SUMMARY | 2024-11-18 21:59 | XMS_ITS | Encounter Summary ---
Author Organization [facility] Address [facility] [place] [address] Care Team Providers Care Academic Intern Name Role Phone Deandre Bojorquez MD Unavailable [phone] Jeff Strickland MD Primary Care Provider [phone] Encounter Details Date Type Department Care Team (Late st Contact Info) Description 03/30/2024 Lab Requisition [facility] MAIN LAB [address] [place] [phone] Alan Davenport MD [facility] OF [place] [address] Social History Tobacco Use Types Packs/Day Years Used Date Smoking Tobacco: Never Smokeless Tobacco: Never Alcohol Use Standard Drinks/Week Comments Not Currently 0 (1 standard drink = 0.6 oz pur e alcohol) socially in past Sex and Gender Information Value Date Recorded Sex Assigned at Male 07/02/2021 2:37 PM CDT Legal Sex Male 10:14 PM SORT MANAGER Gender Identity Male 07/02/2021 2:37 PM [...] AM CDT Appointment H IVR [address] [place] [address] Elroy Holcomb MD [address] [place] [address] 2L [place] [address] 11/24/2024 9:05 AM CDT Hospital Encounter [facility] RITO OP [address] [place] [address] Elroy Holcomb MD [address] [place] [address] [address] [place] [address] Surgery General 11/24/2024 9:05 AM CDT - 11/24/2024 11:20 AM CDT Surgery [facility] RIOT OP [address] [place] [address] Elroy Holcomb MD [address] [place] [address] 2[address] [place] [address] Bilateral first toe debridement 12/06/2024 10:40 AM CDT Office Visit [facility] - Endocrinology [address] [place] [address], [place] [phone] Marbin Flores MD [address] [facility] DIV OF [place] [address] Niraj Turner MD [address] [facility] 2L [place] [address] 2025 1:00 PM SORT MANAGER Office Visit [facility] - Neurology [address] [place] [address], [place] [phone] Becky Wilson MD [address] [place] [phone] Scheduled Procedures Name Priority Associated Diagnoses Date/Ti me IRRIGATION/DEBRIDEMENT WOUND/TISSUE Peripheral artery disease 11/24/2024 9:05 AM CDT AMPUTATION TOE Peripheral artery disease 11/24/2024 9:05 AM CDT documented as of this encounter Procedures Procedure Name Priority Date/Time Associated Diagnosis Comments HOLD HLA SPECIMEN Routine 03/25/2024 2:5 1 PM SORT MANAGER documented in this encounter Results * HOLD HLA SPECIMEN (03/25/2024 2:51 PM SORT MANAGER) Hold HLA Specimen 03/30/2024 4:01 PM SORT MANAGER [facility] ([facility] Comment:The Hold HLA specime n has been received into the lab and will be held for 5 years at 4 degrees. Blood BLOOD SPECIMEN / Unknown 03/25/2024 2:51 PM SORT MANAGER 03/30/2024 2:51 PM SORT MANAGER Alan Davenport MD LAB - BLOOD BANK ORDERABLES F inal Result [facility] ([facility]) [address] [place] [address], [facility] documented in this encounter Visit Diagnoses Not on filedocumented in this encounter Additional Health Concerns Infection Onset Date Last Indicated Resolved Time COVID-19 Under Investigation 09/13/2024 09/13/2024 09/13/2024 6:36 AM CDT documented as of this encounter Care Teams Academic Intern Relationship Specialty Start Date End Date Jeff Strickland MD [address] [place] [address] PCP - General 03/05/18 [place] [address] [place] [address] Orthopedic Surgery 03/28/17 documented as of this encounter
--- OUTSIDE RECORDS SUMMARY | 2024-11-18 21:59 | XMS_ITS | Clinical Summary ---
Author Organization [facility] Address [address] [place] [address] Phone Care Team Providers Care Electronic Systems Technician Name Role Phone Jeff Strickland MD Primary Care Provider [phone] Allergies No known active allergies Medications pantoprazole [...] tablet Take 112 mcg by mouth daily dietary internship. Active aspirin (ANGELLA) 325 mg tablet Take 325 mg by mouth daily. Active Vit C-Vit R-Cjplhb-JuXx-L utein (PRESERVISION) 226 mg-200 unit -5 mg-0.8 [...] Comments Blood Pressure 167/77 02/04/2019 9:16 AM TELEGRAPHIC TYPEWRITER INSTALLER Pulse 64 02/04/2019 9:16 AM TELEGRAPHIC TYPEWRITER INSTALLER Temperature 36.5 C (97.7 F) 02/04/2019 9:16 AM TELEGRAPHIC TYPEWRITER INSTALLER Respiratory Rate 16 02/04/2019 9:16 AM TELEGRAPHIC TYPEWRITER INSTALLER Oxygen Saturation 97% 02/04/2019 9:16 AM TELEGRAPHIC TYPEWRITER INSTALLER Inhaled Oxygen Concentration - - Weight 113.4 kg (250 lb) 02/04/2019 9:16 AM TELEGRAPHIC TYPEWRITER INSTALLER Height 175.3 cm (5' 9) 02/04/2019 9:16 AM TELEGRAPHIC TYPEWRITER INSTALLER Body Mass Index 36.92 02/04/2019 9:16 AM TELEGRAPHIC TYPEWRITER INSTALLER Plan of Treatment Health Maintenance Due Date [...] HOSPITAL BLUE ACCESS/TRUE BLUE PPO Care Teams Electronic Systems Technician Relationship Specialty Start Date End Date Jeff Strickland MD [address] [facility] [address] [place] [address] PCP - General Family Practice 01/01/19
--- OUTSIDE RECORDS SUMMARY | 2024-11-18 21:59 | XMS_ITS | Encounter Summary ---
Author Organization [facility] Address [facility] [place] [address] Care Team Providers Care Packing Attendant Name Role Phone Deandre Bojorquez MD Unavailable [phone] Jeff Strickland MD Primary Care Provider [phone] Encounter Details Date Type Department Care Team (Late st Contact Info) Description 06/25/2024 Lab Requisition [facility] MAIN LAB [address] [place] [phone] Alan Davenport MD [facility] OF [place] [address] Social History Tobacco Use Types Packs/Day Years Used Date Smoking Tobacco: Never Smokeless Tobacco: Never Alcohol Use Standard Drinks/Week Comments Not Currently 0 (1 standard drink = 0.6 oz pur e alcohol) socially in past Sex and Gender Information Value Date Recorded Sex Assigned at Male 07/02/2021 2:37 PM CDT Legal Sex Male 10:14 PM LEGISLATIVE DIRECTOR Gender Identity Male 07/02/2021 2:37 PM [...] 10:00 AM CDT Appointment H IVR [address] [place] [address] Elroy Holcomb MD [address] [place] [address] 2[address] [place] [address] 11/24/2024 9:05 AM CDT Hospital Encounter [facility] RITO OP [address] [place] [address] Elroy Holcomb MD [address] [place] [address] 2[address] [place] [address] Surgery General 11/24/2024 9:05 AM CDT - 11/24/2024 11:20 AM CDT Surgery [facility] RITO OP [address] [place] [address] Elroy Holcomb MD [address] [place] [address] 2[address] [place] [address] Bilateral first toe debridement 12/06/2024 10:40 AM CDT Office Visit [facility] - Endocrinology [address] [place] [address], [place] [address] Marbin Flores MD [address] [facility] DIV OF [place] [address] Niraj Turner MD 1225 [facility] 2L [place] [address] 2025 1:00 PM LEGISLATIVE DIRECTOR Office Visit [facility] - Neurology [address] [place] [address], [place] [address] Becky Wilson MD [address] [place] [phone] Scheduled Procedures Name Priority Associated Diagnoses Date/Ti [...] Specimen 06/25/2024 12:32 PM CDT [facility] ([facility]) Comment:The Hold HLA specime n has been received into the lab and will be held for 5 years at 4 degrees. Blood BLOOD SPECIMEN / Unknown 06/22/2024 11:05 AM CDT 06/25/2024 11:05 AM CDT Alan Davenport MD LAB - BLOOD BANK ORDERABLES F inal Result [facility] ([facility]) [address] documented in this encounter Visit Diagnoses Not on filedocumented in this encounter Additional Health Concerns Infection Onset Date Last Indicated Resolved Time COVID-19 Under Investigation 09/13/2024 09/13/2024 09/13/2024 6:36 AM CDT documented as of this encounter Care Teams Packing Attendant Relationship Specialty Start Date End Date Jeff Strickland MD [address] [place] [address] PCP - General 03/05/18 [place] [address] [place] [address] Orthopedic Surgery 03/28/17 documented as of this encounter
--- OUTSIDE RECORDS SUMMARY | 2024-11-18 21:59 | XMS_ITS | Encounter Summary ---
Author Organization [facility] Healthcare Address [address] [place] [address] Care Team Providers Care Training And Development Manager Name Role Phone Jeff Strickland MD Primary Care Provider Chan Nicholas MD Unavailable [phone] Alan Mccall MD Unavailable [phone] Pepito Haro MD PhD Unavailable Solange Guido MD Unavailable [phone] Encounter Details Date Type Department Care Team (Late st Contact Info) Description 07/28/2024 Orders Only [facility] Health Information Management [address] [place] [address] Scanning, Provider Social History Tobacco Use Types Packs/Day Years Used Date Smoking Tobacco: Never Smokeless Tobacco: Never Alcohol Use Standard Drinks/Week Comments Yes 0 (1 standard drink = 0.6 oz pur e alcohol) rarely [facility] Utilities Answer Date Recorded In the past 12 months has [employer] electric, gas, oil, or water company threatened [...] often do you attend chur ch or buddhist services? 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 Gender Identity Not on file Sexual [...] on filedocumented in this encounter Care Teams Training And Development Manager Relationship Specialty Start Date End Date Jeff Strickland MD [facility] [address] [place] [id number] PCP - General Family Medicine 04/02/18 Chan Nicholas MD [facility] [address] [address] Consulting Physician Gastroenterology 11/24/18 Alan Mccall MD [facility] [address] [address] Referring Physician Nephrology 11/24/18 Pepito Haro MD PhD [address] [place] [address] Consulting Physician Neurosurgery 12/03/22 Solange Guido MD [address] [facility] [address] [place] [address] Referring Physician Cardiovascular Disease 07/23/23 documented as of this encounter
--- OUTSIDE RECORDS SUMMARY | 2024-11-18 21:59 | XMS_ITS ---
Author Organization [facility] Address [address] [place] [address] Care Team Providers Care Manager Animal Name Role Phone Jeff Strickland MD Primary Care Provider Chan Nicholas MD Unavailable [phone] Alan Mccall MD Unavailable [phone] Pepito Haro MD PhD Unavailable Solange Guido [...] both eyes EGFR Routine 04/13/2024 5:06 AM HOME HEALTH CLINICAL SUPERVISOR HEMOGLOBIN A1C STAT 04/10/2024 11:41 PM HOME HEALTH CLINICAL SUPERVISOR LIPID PANEL STAT 04/10/2024 11:41 PM HOME HEALTH CLINICAL SUPERVISOR from Last 3 Months or Most [...] 300 + = 14 units Active FA-vit Ytrca-G-hxbb-vitamin D3 (Dialyvite 800-Ultra D) 0.8-2,000 mg-unit tablet [...] total) by mouth 06/04/19 25 Active vitamins A,C,E-ubgq-cuxfzt (PreserVision AREDS) 4,296 mcg-226 mg-90 mg capsule [...] damage Assessment & Plan (03/09/2024 6:25 PM HOME HEALTH CLINICAL SUPERVISOR): Vision OD trends mild improvement, though [...] 03/26/2021 Assessment & Plan (03/26/2021 1:17 PM HOME HEALTH CLINICAL SUPERVISOR): Enlarged mild sella turcica on a [...] units Assessment & Plan (03/26/2021 1:17 PM HOME HEALTH CLINICAL SUPERVISOR): Chronic, uncontrolled, improving A1c today 7.7 [...] WNL Assessment & Plan (03/26/2021 1:16 PM HOME HEALTH CLINICAL SUPERVISOR): Pt currently on Levothyroxine 112 mcg [...] 11/18/2018 Assessment & Plan (01/21/2019 2:02 PM HOME HEALTH CLINICAL SUPERVISOR): Symptomatic. Will request for esophageal manometry. [...] well Assessment & Plan (03/26/2021 1:16 PM HOME HEALTH CLINICAL SUPERVISOR): On statin therapy Tolerating well Last [...] nephrectomy. 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 [id number] Immunizations Immunization Administration Dates Next Due Hep [...] pur e alcohol) rarely [facility] Xtractities Answer Date Recorded In the past 12 months has Boqii, gas, oil, or water [employer] threatened to shut off services in your [...] often do you attend chur ch or temple services? Never 03/25/2023 Do you belong to [...] on file Legal Sex Male 2:23 AM HOME HEALTH CLINICAL SUPERVISOR Gender Identity Not on file Sexual [...] CDT Respiratory Rate 16 04/13/2024 8:33 AM HOME HEALTH CLINICAL SUPERVISOR Oxygen Saturation 98% 04/13/2024 8:33 AM HOME HEALTH CLINICAL SUPERVISOR Inhaled Oxygen Concentration - - Weight [...] Selwyn Wong M.D. LC: MARC Report ID: [id number] Reading Location: [id number] Procedure Note Dolores Wong MD - 10/12/2024 EXAM DESCRIPTION: MRI BRAIN WO CONTRAST REASON FOR STUDY: other symptoms and signs involving cognitive functionsand awareness Cognitive changes, confusion, worse over that last several weeks, noinjury or trauma but patient states he has had several surgeries recently TECHNIQUE: Multiplanar imaging includes non-contrasted T1, T2, FLAIR, and diffusion with ADC map sequences. Additional sequence(s) sensitive Visitar products. Images stored on PACS. COMPARISON: MRI [...] Selwyn Wong M.D. LC: MARC Report ID: [id number] Reading Location: [id number] us Provider Transcribed Order IMG MRI PROCEDURES [...] Result * (ABNORMAL) eGFR (04/13/2024 5:06 AM HOME HEALTH CLINICAL SUPERVISOR) eGFR 5(L) >=60 mL/min/1. 73 m2 [...] last reviewed 2020. Blood 04/13/2024 5:06 AM HOME HEALTH CLINICAL SUPERVISOR 04/13/2024 5:31 AM HOME HEALTH CLINICAL SUPERVISOR us Saul Engle MD LAB BLOOD ORDERABLES Final Resul t [facility] One [facility] Department of Laboratories [place], [place] [id number] * (ABNORMAL) Lipid panel (04/10/2024 11:41 PM HOME HEALTH CLINICAL SUPERVISOR) Cholesterol 145 30 - 199 mg/dL [...] on 2017. Triglycerides 453(H) <=149 mg/dL [facility] Comment: Interpretive Data Ages < [...] on 2017. HDL 22(L) >=40 mg/dL [facility] Comment: Interpretive Data Ages < [...] on 2017. LDL, calculated See Comment <=129 [facility] Comment: Unable to calculate LDL [...] on 2023. Non-HDL Cholesterol 123 mg/dL [facility] Comment: Interpretive Data Ages < [...] last revised on 2017. Chol/HDL ratio 7 [facility] Blood 04/10/2024 11:4 1 PM HOME HEALTH CLINICAL SUPERVISOR 04/10/2024 11:55 PM HOME HEALTH CLINICAL SUPERVISOR us Nicole Boo MD LAB BLOOD ORDERABLES Final Result [facility] One [facility] Department [place] [address] from Last 3 Months or Most Recently Relevant to Health Maintenance
--- OUTSIDE RECORDS SUMMARY | 2024-11-18 21:59 | XMS_ITS ---
Author Organization [facility] Address [facility] [place] [address] Care Team Providers Care Harvesting Supervisor Name Role Phone Jeff Strickland MD Primary Care Provider Chan Nicholas MD Unavailable [phone] Alan Mccall MD Unavailable [phone] Pepito Haro MD PhD Unavailable Solange Guido [...] Assessment & Plan (03/09/2024 6:25 PM MANAGER SOUND): Vision OD trends mild improvement, though still [...] and have patient return to [facility] in 4 weeks for repeat [...] Assessment & Plan (03/26/2021 1:17 PM MANAGER SOUND): Enlarged mild sella turcica on a routine [...] Assessment & Plan (03/26/2021 1:17 PM MANAGER SOUND): Chronic, uncontrolled, improving A1c today 7.7 % [...] Assessment & Plan (03/26/2021 1:16 PM MANAGER SOUND): Pt currently on Levothyroxine 112 mcg oral [...] Assessment & Plan (01/21/2019 2:02 PM MANAGER SOUND): Symptomatic. Will request for esophageal manometry. Continue [...] Assessment & Plan (03/26/2021 1:16 PM MANAGER SOUND): On statin therapy Tolerating well Last lipid [...] nephrectomy. 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 [id number] Current Treatment and Therapy Plans No current [...] were not included. Kendall Carl 1955 Referring Bank Teller Machine Mechanic: Alan Mccall Dialysis Info: NOD GFR 13 Type: Time: (Not currently on dialysis) days Blood Type: O NEG Body mass index is 37.36 kg/m . ALERTS Automatic Pilot Mechanic: needs to establish Past Medical History: Diagnosis Date Arthropathy RA. Dr Strickland manages. 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 CKD (chronic kidney disease), stage V Community acquired pneumonia 2018 [facility] hospitalized. Diabetes mellitus 20 years. Lantus pen. Esophageal reflux takes med Hypercholesteremia 5-10 yrs meds Hypertension takes meds Hypothyroidism meds 20 years Kidney stones 5-6 years ago had 2 in the same year. Malignancy right kidney 2012 Obstructive sleep apnea 3 years. [facility]. [place] remember doctors name Renal cell [...] file Gets together: Not on file Attends sikhism service: Not on file Active member of [...] support system and appropriate discharge plan. Plan: easement worker to provide supportive services as needed. Patient appears to be a reasonable candidate for transplant from a psychosocial perspective. -Post transplant arrangement forms are needed prior to being listed. -Updated toxicology results needed, per protocol Psychiatric Consult Recommended: No Transplant Client Experience Administrator: Joy Tam LCSW RD: 11/09/2019 BMI= 36.2, [...] my fitness pal or my food coach mechanic) - Consume no more than 2000 calories a day E-mailed pt's a 2000 calorie, CKD meal plan. Items Still Pending: Clinic, colonoscopy Acute pain of left shoulder 01/25/2019 03/25/2023 Non-cardiac chest pain 11/18/201803/25 Assessment & Plan (01/21/2019 2:02 PM MANAGER SOUND): The pain is persistent. The patient described [...] has had extensive cardiac workup by the damper worker including coronary angiogram. He has chest [...]
--- OUTSIDE RECORDS SUMMARY | 2024-11-18 21:59 | XMS_ITS | Encounter Summary ---
Author Organization [facility] Address [facility] [place] [address] Care Team Providers Care Plastic Tile Setter Name Role Phone Deandre Bojorquez MD Unavailable [phone] Jeff Strickland MD Primary Care Provider [phone] Encounter Details Date Type Department Care Team (Late st Contact Info) Description 04/10/2023 Lab Requisition [facility] [address] [place] [id number] Alan Davenport MD [facility] OF ABD [place] [address] Social History Tobacco Use Types Packs/Day Years Used Date Smoking Tobacco: Never Smokeless Tobacco: Never Alcohol Use Standard Drinks/Week Comments Not Currently 0 (1 standard drink = 0.6 oz pur e alcohol) socially in past Sex and Gender Information Value Date Recorded Sex Assigned at Male 07/02/2021 2:37 PM CDT Legal Sex Male 10:14 PM 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 REBUILDER Gender Identity Male 07/02/2021 2:37 PM CDT [...] 10:00 AM CDT Appointment H IVR [address] [place] [address] Elroy Holcomb MD [address] [place] [address] 2[address] [place] [address] 11/24/2024 9:05 AM CDT Hospital Encounter [facility] [address] [place] [address] Elroy Holcomb MD [address] [place] [address] [address] [place] [address] Surgery General 11/24/2024 9:05 AM CDT - 11/24/2024 11:20 AM CDT Surgery [facility] [address] [place] [address] Elroy Holcomb MD [address] [place] [address] 2[address] [place] [address] Bilateral first toe debridement 12/06/2024 10:40 AM CDT Office Visit [facility] - Endocrinology [address] [place] [address], [place] [phone] Marbin Flores MD [address] [facility] DIV OF ABD TR[place] [address] Niraj Turner MD [address] [facility] 2L [place] [address] 2025 1:00 PM MACHINE REBUILDER Office Visit [facility] - Neurology [address] [place] [address], [place] [address] Becky Wilson MD [address] [place] [phone] Scheduled Procedures Name Priority Associated Diagnoses Date/Ti me IRRIGATION/DEBRIDEMENT WOUND/TISSUE Peripheral artery disease 11/24/2024 9:05 AM CDT AMPUTATION TOE Peripheral artery disease 11/24/2024 9:05 AM CDT documented as of this encounter Procedures Procedure Name Priority Date/Time Associated Diagnosis Comments HOLD HLA SPECIMEN Routine 04/02/2023 3:0 1 PM MACHINE REBUILDER documented in this encounter Results * HOLD HLA SPECIMEN (04/02/2023 3:01 PM MACHINE REBUILDER) Hold HLA Specimen 04/10/2023 4:01 PM MACHINE REBUILDER [facility] ([facility]) Comment:The Hold HLA specime n has been received into the lab and will be held for 5 years at 4 degrees. Blood BLOOD SPECIMEN / Unknown 04/02/2023 3:01 PM MACHINE REBUILDER 04/10/2023 3:01 PM MACHINE REBUILDER Alan Davenport MD LAB - BLOOD BANK ORDERABLES F inal Result [facility] ([facility]) [address] [place] [address], [facility] documented in this encounter Visit Diagnoses Not on filedocumented in this encounter Additional Health Concerns Infection Onset Date Last Indicated Resolved Time COVID-19 Under Investigation 09/13/2024 09/13/2024 09/13/2024 6:36 AM CDT documented as of this encounter Care Teams Plastic Tile Setter Relationship Specialty Start Date End Date Jeff Strickland MD [address] [place] [address] PCP - General 03/05/18 [place] [address] [place] [address] Orthopedic Surgery 03/28/17 documented as of this encounter
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
--- OUTSIDE RECORDS SUMMARY | 2024-11-18 21:59 | XMS_ITS | Clinical Summary ---
Author Organization [facility] Suy[facility] milligan Address [address] [address] Phone Care Team Providers Care Mushroom Press Operator Name Role Phone Jeff Strickland MD Primary Care Provider [phone] Allergies No known active allergies Medications levothyroxine [...] tablet 3 0 Active Continuous Blood Gluc Entertainment Centre Manager (FreeStyle Em Browder) device 1 each daily 0 Active Continuous Blood Gluc Sensor (FreeStyle Em Sensor System) misc 1 each once every 2 weeks 0 Active Lancets (OneTouch Delica Plus [id number]) misc OneTouch Delica Plus Lancet 33 gauge [...] 11/10/2019 Overview (12/17/2019): Kendall Carl 1955 Referring Senior Net Programmer: Alan Mccall Dialysis Info: NOD GFR 13 Type: Time: (Not currently on dialysis) days Blood Type: O NEG Body mass index is 37.36 kg/m . ALERTS Video Game Technician: needs to establish Past Medical History: Diagnosis Date Arthropathy RA. Dr Strickland manages. CHF (congestive heart failure) 2 yrs ago Mandrel Puller is Dr. Becerra in [place]. CKD (chronic kidney disease), stage V Community acquired pneumonia 2018 [facility] hospitalized. Diabetes mellitus 20 years. Lantus pen. Esophageal reflux takes med Hypercholesteremia 5-10 yrs meds Hypertension takes meds Hypothyroidism meds 20 years Kidney stones 5-6 years ago had 2 in the same year. Malignancy right kidney 2012 Obstructive sleep apnea 3 years. [facility]. Angela remember doctors name Renal cell [...] file Gets together: Not on file Attends gnosticist service: Not on file Active member of [...] It is the impression of this social research assistant that Kendall Gillris has several positive factors for Kidney transplant candidacy from a psychosocial perspective. Patient appears to have appropriate knowledge of illness. Patient has sufficient insurance coverage and stable financial situation for post transplant needs. No concerns regarding substance abuse, legal issues, or mental health needs. Patient has adequate support system and appropriate discharge plan. Plan: rack production worker to provide supportive services as needed. Patient appears to be a reasonable candidate for transplant from a psychosocial perspective. -Post transplant arrangement forms are needed prior to being listed. -Updated toxicology results needed, per protocol Psychiatric Consult Recommended: No Transplant Cutter [place] Reeds: Joy Tam LCSW RD: 11/09/2019 BMI= 36.2, [...] use my fitness pal or my food middle school baseball coach) - Consume no more than [...] nephrectomy. 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 [id number] Immunizations Immunization Administration Dates Next Due Influenza [...] Insurance AETNA PM INTERFACED INSURANCE Care Teams Mushroom Press Operator Relationship Specialty Start Date End Date Jeff Strickland MD [address] [facility] 162 [facility] 120 [place] [address] PCP - General Internal Medicine 07/15/18
--- OUTSIDE RECORDS SUMMARY | 2024-11-18 21:59 | XMS_ITS | Encounter Summary ---
Author Organization [facility] Address [address] [place] [address] Care Team Providers Care Zinc Skimmer Name Role Phone Deandre Bojorquez MD Unavailable [phone] Jeff Strickland MD Primary Care Provider [phone] Encounter Details Date Type Department Care Team (Late st Contact Info) Description 09/10/2024 Telephone [facility] - Centralized Scheduling [facility]1 [place] [address] Niraj Turner MD [facility] [place] [address] Social History Tobacco Use Types Packs/Day Years [...] and heating? Not hard at all 09/14/2024 [facility] [place] of Occupat [facility] - Occupational Stress Questionnaire Answer Date [...] [place] [facility] [place] facility (including now)? No 09/14/2024 Sex and Gender Information Value Date Recorded Sex Assigned at Male 07/02/2021 2:37 PM CDT Legal Sex Male 10:14 PM CERTIFIED PEST CONTROL TECHNICIAN Gender Identity Male 07/02/2021 2:37 PM [...] [facility] [address] [place] [address] Elroy Holcomb MD [facility]5 [facility] 2L [place] [address] 11/24/2024 9:05 AM CDT Hospital Encounter [facility] [address] [place] [address] Elroy Holcomb MD [address] [place] [address] 2L [place] [address] Surgery General 11/24/2024 9:05 AM CDT - 11/24/2024 11:20 AM CDT Surgery [facility] [address] [place] [phone] Elroy Holcomb MD [facility] 2L [place] [address] Bilateral first toe debridement 12/06/2024 10:40 AM CDT Office Visit [facility] - Endocrinology [address] [place] [address], [place] [phone] Marbin Flores MD [address] [facility] DIV OF [place] [address] Niraj Turner MD [address] [place] [address] 2L [place] [address] 2025 1:00 PM CERTIFIED PEST CONTROL TECHNICIAN Office Visit [facility] - Neurology [address] [place] [phone] Becky Wilson MD [address] [place] [phone] Scheduled Procedures Name Priority Associated Diagnoses Date/Ti [...] documented as of this encounter Care Teams Zinc Skimmer Relationship Specialty Start Date End Date Jeff Strickland MD [address] [place] [address] PCP - General 03/05/18 [place] [address] [address] Orthopedic Surgery 03/28/17 documented as of this encounter
--- OUTSIDE RECORDS SUMMARY | 2024-11-18 21:59 | XMS_ITS | Encounter Summary ---
Author Organization [facility] Address [facility] [place] [address] Care Team Providers Care Pan Operator Name Role Phone Deandre Bojorquez MD Unavailable [phone] Jeff Strickland MD Primary Care Provider [phone] Encounter Details Date Type Department Care Team (Late st Contact Info) Description 02/04/2024 Lab Requisition [facility] [address] [place] [phone] Alan Davenport MD [facility]1 [facility] [place] [address] Social History Tobacco Use Types Packs/Day Years Used Date Smoking Tobacco: Never Smokeless Tobacco: Never Alcohol Use Standard Drinks/Week Comments Not Currently 0 (1 standard drink = 0.6 oz pur e alcohol) socially in past Sex and Gender Information Value Date Recorded Sex Assigned at Male 07/02/2021 2:37 PM CDT Legal Sex Male 10:14 PM FRINGING MACHINE OPERATOR Gender Identity Male 07/02/2021 2:37 [...] 10:00 AM CDT Appointment H IVR [address] [place] [address] Elroy Holcomb MD [address] [place] [address] 2L [place] [address] 11/24/2024 9:05 AM CDT Hospital Encounter [facility] RITO OP [address] [place] [address] Elroy Holcomb MD [address] [place] [address] 2L [place] [address] Surgery General 11/24/2024 9:05 AM CDT - 11/24/2024 11:20 AM CDT Surgery [facility] RIT[facility] OP [address] [place] [address] Elroy Holcomb MD [address] [place] [address] 2L [place] [address] Bilateral first toe debridement 12/06/2024 10:40 AM CDT Office Visit [facility] - Endocrinology [address] [place] [address], [place] [phone] Marbin Flores MD [address] [facility] DIV OF [place] [address] Niraj Turner MD 1225 [facility] 2L [place] [address] 2025 1:00 PM FRINGING MACHINE OPERATOR Office Visit [facility] - Neurology [address] [place] [address], [place] [address] Becky Wilson MD [address] [place] [phone] Scheduled Procedures Name Priority Associated Diagnoses Date/Ti me IRRIGATION/DEBRIDEMENT WOUND/TISSUE Peripheral artery disease 11/24/2024 9:05 AM CDT AMPUTATION TOE Peripheral artery disease 11/24/2024 9:05 AM CDT documented as of this encounter Procedures Procedure Name Priority Date/Time Associated Diagnosis Comments HOLD HLA SPECIMEN Routine 01/27/2024 3:2 3 PM FRINGING MACHINE OPERATOR documented in this encounter Results * HOLD HLA SPECIMEN (01/27/2024 3:23 PM FRINGING MACHINE OPERATOR) Hold HLA Specimen 02/04/2024 4:31 PM FRINGING MACHINE OPERATOR [facility] ([facility]) Comment:The Hold HLA specime n has been received into the lab and will be held for 5 years at 4 degrees. Blood BLOOD SPECIMEN / Unknown 01/27/2024 3:23 PM FRINGING MACHINE OPERATOR 02/04/2024 3:23 PM FRINGING MACHINE OPERATOR Alan Davenport MD LAB - BLOOD BANK ORDERABLES F inal Result [facility] ([facility]) [address] [place] [address], [facility] documented in this encounter Visit Diagnoses Not on filedocumented in this encounter Additional Health Concerns Infection Onset Date Last Indicated Resolved Time COVID-19 Under Investigation 09/13/2024 09/13/2024 09/13/2024 6:36 AM CDT documented as of this encounter Care Teams Pan Operator Relationship Specialty Start Date End Date Jeff Strickland MD [address] [place] [address] PCP - General 03/05/18 [place] [address] [place] [address] Orthopedic Surgery 03/28/17 documented as of this encounter
--- OUTSIDE RECORDS SUMMARY | 2024-11-18 21:59 | XMS_ITS | Clinical Summary ---
Author Organization [facility] Address [facility]6 [place] [address] Care Team Providers Care Command And Control Systems Integrator Name Role Phone Jeff Strickland MD Primary Care Provider [phone] Allergies Active Allergy Reactions Criticality Noted Date [...] by mouth nightly at bedtime. Active Multiple Vitamins-Lyford als (PRESERVISION AREDS 2 OR) Take 1 [...] drink = 0.6 oz pur e alcohol) [facility] Utilities Answer Date Recorded In the past 12 months has th e electric, gas, oil, or water [facility] threatened to shut off services in your [...] slept in a detention (including now)? 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
--- OUTSIDE RECORDS SUMMARY | 2024-11-18 21:59 | XMS_ITS | Encounter Summary ---
Author Organization [facility] Address [address] [place] [address] Care Team Providers Care Medical Instructor Name Role Phone Deandre Bojorquez MD Unavailable [phone] Jeff Strickland MD Primary Care Provider [phone] Encounter Details Date Type Department Care Team (Late st Contact Info) Description 02/07/2023 Lab Requisition [facility] MA[facility] [address] [place] [phone] Alan Davenport MD [facility]1 [facility] [place] [address] Social History Tobacco Use Types Packs/Day Years Used Date Smoking Tobacco: Never Smokeless Tobacco: Never Alcohol Use Standard Drinks/Week Comments Not Currently 0 (1 standard drink = 0.6 oz pur e alcohol) socially in past Sex and Gender Information Value Date Recorded Sex Assigned at Male 07/02/2021 2:37 PM CDT Legal Sex Male 10:14 PM SHOE TREER Gender Identity Male 07/02/2021 2:37 PM CDT [...] 10:00 AM CDT Appointment H IVR [address] [place] [address] Elroy Holcomb MD [address] [place] [address] 2L [place] [address] 11/24/2024 9:05 AM CDT Hospital Encounter [facility] RITO OP [address] [place] [address] Elroy Holcomb MD [address] [place] [address] 2L [place] [address] Surgery General 11/24/2024 9:05 AM CDT - 11/24/2024 11:20 AM CDT Surgery [facility] RITO OP [address] [place] [address] Elroy Holcomb MD [address] [place] [address] 2L [place] [address] Bilateral first toe debridement 12/06/2024 10:40 AM CDT Office Visit [facility] - Endocrinology [address] [place] [address], [place] [phone] Marbin Flores MD 1201 [facility] DIV OF [place] [address] Niraj Turner MD 12[address] [facility] 2L [place] [address] 2025 1:00 PM SHOE TREER Office Visit [facility] - Neurology [address] [place] [address], [place] [address] Becky Wilson MD [address] [place] [phone] Scheduled Procedures Name Priority Associated Diagnoses Date/Ti me IRRIGATION/DEBRIDEMENT WOUND/TISSUE Peripheral artery disease 11/24/2024 9:05 AM CDT AMPUTATION TOE Peripheral artery disease 11/24/2024 9:05 AM CDT documented as of this encounter Procedures Procedure Name Priority Date/Time Associated Diagnosis Comments HOLD HLA SPECIMEN Routine 2023 7:5 8 AM SHOE TREER documented in this encounter Results * HOLD HLA SPECIMEN (2023 7:58 AM SHOE TREER) Hold HLA Specimen 02/07/2023 9:01 AM SHOE TREER [facility] Comment:The Hold HLA specime n has been received into the lab and will be held for 5 years at 4 degrees. Blood BLOOD SPECIMEN / Unknown 2023 7:58 AM SHOE TREER 02/07/2023 7:59 AM SHOE TREER Alan Davenport MD LAB - BLOOD BANK ORDERABLES F inal Result [facility] ([facility]) [address] [place] [address], [facility] documented in this encounter Visit Diagnoses Not on filedocumented in this encounter Additional Health Concerns Infection Onset Date Last Indicated Resolved Time COVID-19 Under Investigation 09/13/2024 09/13/2024 09/13/2024 6:36 AM CDT documented as of this encounter Care Teams Medical Instructor Relationship Specialty Start Date End Date Jeff Strickland MD [address] [place] [address] PCP - General 03/05/18 [place] [address] [place] [address] Orthopedic Surgery 03/28/17 documented as of this encounter
--- OUTSIDE RECORDS SUMMARY | 2024-11-18 21:59 | XMS_ITS | Encounter Summary ---
Author Organization [facility] Address [facility]3 [place] [address] Care Team Providers Care Senior Sales Operations Manager Name Role Phone Deandre Bojorquez MD Unavailable [phone] Jeff Strickland MD Primary Care Provider [phone] Encounter Details Date Type Department Care Team (Late st Contact Info) Description 09/30/2023 Lab Requisition [facility] LAB [address] [place] [phone] Alan Davenport MD [facility]1 [facility] [place] [address] Social History Tobacco Use Types Packs/Day Years Used Date Smoking Tobacco: Never Smokeless Tobacco: Never Alcohol Use Standard Drinks/Week Comments Not Currently 0 (1 standard drink = 0.6 oz pur e alcohol) socially in past Sex and Gender Information Value Date Recorded Sex Assigned at Male 07/02/2021 2:37 PM CDT Legal Sex Male 10:14 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 Gender Identity Male 07/02/2021 2:37 PM CDT [...] 10:00 AM CDT Appointment H IVR [address] [place] [address] Elroy Holcomb MD [address] [place] [address] 2L [place] [address] 11/24/2024 9:05 AM CDT Hospital Encounter [facility] RITO OP [address] [place] [address] Elroy Holcomb MD [address] [place] [address] 2L [place] [address] Surgery General 11/24/2024 9:05 AM CDT - 11/24/2024 11:20 AM CDT Surgery [facility] RITO OP [address] [place] [address] Elroy Holcomb MD [address] [place] [address] 2L [place] [address] Bilateral first toe debridement 12/06/2024 10:40 AM CDT Office Visit [facility] - Endocrinology [address] [place] [address], [place] [address] Marbin Flores MD [address] [facility] DIV OF [place] [address] Niraj Turner MD 1225 [facility] 2L [place] [address] 2025 1:00 PM TERMITE TREATER Office Visit [facility] - Neurology [address] [place] [address], [place] [address] Becky Wilson MD [address] [place] [phone] Scheduled Procedures Name Priority Associated Diagnoses Date/Ti [...] Hold HLA Specimen 09/30/2023 4:32 PM CDT [facility] Comment:The Hold HLA specime n has been received into the lab and will be held for 5 years at 4 degrees. Blood BLOOD SPECIMEN / Unknown 09/24/2023 3:27 PM CDT 09/30/2023 3:27 PM CDT lAan Davenport MD LAB - BLOOD BANK ORDERABLES F inal Result [facility] ([facility]) [address] documented in this encounter Visit Diagnoses Not on filedocumented in this encounter Additional Health Concerns Infection Onset Date Last Indicated Resolved Time COVID-19 Under Investigation 09/13/2024 09/13/2024 09/13/2024 6:36 AM CDT documented as of this encounter Care Teams Senior Sales Operations Manager Relationship Specialty Start Date End Date Jeff Strickland MD [address] [place] [address] PCP - General 03/05/18 [place] [address] [place] [address] Orthopedic Surgery 03/28/17 documented as of this encounter
--- OUTSIDE RECORDS SUMMARY | 2024-11-18 21:59 | XMS_ITS | Encounter Summary ---
Author Organization [facility] Address [facility]3 [place] [address] Care Team Providers Care Verifying Specialist Name Role Phone Deandre Bojorquez MD Unavailable [phone] Jeff Strickland MD Primary Care Provider [phone] Encounter Details Date Type Department Care Team (Late st Contact Info) Description 11/21/2023 Lab Requisition [facility] MA[facility] LAB [address] [place] [address] Alan Davenport MD 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 Gender Identity Male 07/02/2021 2:37 PM [...] 10:00 AM CDT Appointment H IVR [address] [place] [address] Elroy Holcomb MD [address] [place] [address] 2L [place] [address] 11/24/2024 9:05 AM CDT Hospital Encounter [facility] RITO OP [address] [place] [address] Elroy Holcomb MD [address] [place] [address] 2L [place] [address] Surgery General 11/24/2024 9:05 AM CDT - 11/24/2024 11:20 AM CDT Surgery [facility] RITO OP [address] [place] [address] Elroy Holcomb MD [address] [place] [address] 2L [place] [address] Bilateral first toe debridement 12/06/2024 10:40 AM CDT Office Visit [facility] - Endocrinology [address] [place] [address], [place] [phone] Marbin Flores MD 1201 [facility] DIV [place] [address] Niraj Turner MD 1225 [facility] 2L [place] [address] 2025 1:00 PM SHOE REPAIR SUPERVISOR Office Visit [facility]ician Group - Neurology [address] [place] [address], [place] [address] Becky Wilson MD [address] [place] [phone] Scheduled Procedures Name Priority Associated Diagnoses Date/Ti [...] Specimen 11/21/2023 1:31 PM CDT [facility] Comment:The Hold HLA specime n has been received into the lab and will be held for 5 years at 4 degrees. Blood BLOOD SPECIMEN / Unknown 11/18/2023 12:16 PM CDT 11/21/2023 12:17 PM CDT Alan Davenport MD LAB - BLOOD BANK ORDERABLES F inal Result [facility] ([facility]) [address] documented in this encounter Visit Diagnoses Not on filedocumented in this encounter Additional Health Concerns Infection Onset Date Last Indicated Resolved Time COVID-19 Under Investigation 09/13/2024 09/13/2024 09/13/2024 6:36 AM CDT documented as of this encounter Care Teams Verifying Specialist Relationship Specialty Start Date End Date Jeff Strickland MD [address] [place] [address] PCP - General 03/05/18 [place] [address] [place] [address] Orthopedic Surgery 03/28/17 documented as of this encounter
--- OUTSIDE RECORDS SUMMARY | 2024-11-18 21:59 | XMS_ITS | Encounter Summary ---
Author Organization [facility] Address [address] [place] [address] Care Team Providers Care Biologist Name Role Phone Deandre Bojorquez MD Unavailable [phone] Jeff Strickland MD Primary Care Provider [phone] Encounter Details Date Type Department Care Team (Late st Contact Info) Description 11/12/2024 Orders Only [facility] PHYS SURGERY [address] [place] [address] Griffin Rodriguez MD 1225 [facility] DIV OF [facility] 2L [place] [phone] Social History Tobacco Use Types Packs/Day Years [...] Recorded Patient Health Questionnaire-2 Score 6 10/05/2024 [facility] of Occupat ional Health - [...] PM CDT 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 Gender Identity Male 07/02/2021 2:37 PM CDT [...] 10:00 AM CDT Appointment [facility] IVR [address] [place] [address] Elroy Holcomb MD [address] [place] [address] 2L [place] [address] 11/24/2024 9:05 AM CDT Hospital Encounter [facility] RITO OP [address] [place] [address] Elroy Holcomb MD [address] [place] [address] 2L [place] [address] Surgery General 11/24/2024 9:05 AM CDT - 11/24/2024 11:20 AM CDT Surgery [facility] RITO OP [address] [place] [address] Elroy Holcomb MD [address] [place] [address] 2L [place] [address] Bilateral first toe debridement 12/06/2024 10:40 AM CDT Office Visit [facility] - Endocrinology [address] [place] [address], [place] [address] Marbin Flores MD 1201 [facility] DIV OF [place] [address] Niraj Turner MD 1225 [facility] 2L [place] [address] 2025 1:00 PM TRAVELING NURSE Office Visit [facility] - Neurology [address] [place] [address] [address] Becky Wilson MD [facility]5 [place] [phone] Scheduled Procedures Name Priority Associated Diagnoses Date/Ti me IRRIGATION/DEBRIDEMENT WOUND/TISSUE Peripheral artery disease 11/24/2024 9:05 AM CDT AMPUTATION TOE Peripheral artery disease 11/24/2024 9:05 AM CDT documented as of this encounter Visit Diagnoses Not on filedocumented in this encounter Care Teams Biologist Relationship Specialty Start Date End Date Jeff Strickland MD [address] [place] [address] PCP - General 03/05/18 [place] [address] [place] [address] Orthopedic Surgery 03/28/17 documented as of this encounter
--- OUTSIDE RECORDS SUMMARY | 2024-11-18 21:59 | XMS_ITS | Encounter Summary ---
Author Organization [facility] Address [facility]3 [place] [address] Care Team Providers Care Compensation Associate Name Role Phone Deandre Bojorquez MD Unavailable [phone] Jeff Strickland MD Primary Care Provider [phone] Encounter Details Date Type Department Care Team (Late st Contact Info) Description 04/29/2024 Lab Requisition [facility] MAIN LAB [address] [place] [phone] Alan Davenport MD [facility] [place] [address] Social History Tobacco Use Types Packs/Day Years Used Date Smoking Tobacco: Never Smokeless Tobacco: Never Alcohol Use Standard Drinks/Week Comments Not Currently 0 (1 standard drink = 0.6 oz pur e alcohol) socially in past Sex and Gender Information Value Date Recorded Sex Assigned at Male 07/02/2021 2:37 PM CDT 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 Gender Identity Male 07/02/2021 2:37 PM CDT [...] 10:00 AM CDT Appointment H IVR [address] [place] [address] Elroy Holcomb MD [address] [place] [address] 2L [place] [address] 11/24/2024 9:05 AM CDT Hospital Encounter [facility] RITO OP [address] [place] [address] Elroy Holcomb MD [address] [place] [address] 2L [place] [address] Surgery General 11/24/2024 9:05 AM CDT - 11/24/2024 11:20 AM CDT Surgery [facility] RITO OP [address] [place] [address] Elroy Holcomb MD [address] [place] [address] 2L [place] [address] Bilateral first toe debridement 12/06/2024 10:40 AM CDT Office Visit [facility] Endocrinology [address] [place] [address], [place] [address] Marbin Flores MD 1201 [facility] DIV OF [place] [address] Niraj Turner MD 1225 [facility] 2L [place] [address] 2025 1:00 PM MANUFACTURING STOREPERSON Office Visit [facility]ician Group - Neurology [address] [place] [address], [place] [address] Becky Wilson MD [address] [place] [phone] Scheduled Procedures Name Priority Associated Diagnoses Date/Ti [...] Hold HLA Specimen 04/29/2024 3:02 PM CDT [facility] ([facility]) Comment:The Hold HLA specime n has been received into the lab and will be held for 5 years at 4 degrees. Blood BLOOD SPECIMEN / Unknown 04/27/2024 1:48 PM CDT 04/29/2024 1:49 PM CDT Alan Davenport MD LAB - BLOOD BANK ORDERABLES F inal Result [facility] ([facility]) [address] documented in this encounter Visit Diagnoses Not on filedocumented in this encounter Additional Health Concerns Infection Onset Date Last Indicated Resolved Time COVID-19 Under Investigation 09/13/2024 09/13/2024 09/13/2024 6:36 AM CDT documented as of this encounter Care Teams Compensation Associate Relationship Specialty Start Date End Date Jeff Strickland MD [address] [place] [address] PCP - General 03/05/18 [place] [address] [place] [address] Orthopedic Surgery 03/28/17 documented as of this encounter
--- OUTSIDE RECORDS SUMMARY | 2024-11-18 21:59 | XMS_ITS | Encounter Summary ---
Author Organization [facility] Address [facility] [place] [address] Care Team Providers Care Tailing Machine Operator Name Role Phone Deandre Bojorquez MD Unavailable [phone] Jeff Strickland MD Primary Care Provider [phone] Reason for Visit * Reason Onset Date Comments Surgery Rescheduled 11/18/2024 Encounter Details Date Type Department Care Team (Late st Contact Info) Description 11/18/2024 Telephone [facility] - Vascular Surgery [address] [place] [address], [place] [address] Elroy Holcomb MD [address] [place] [address] [place] [address] Surgery Rescheduled Social History Tobacco Use Types [...] Recorded Patient Health Questionnaire-2 Score 6 10/05/2024 [facility] of Occupat ional Health - [...] in the past 12 m [facility], were you homeless or living in a assisted (including now)? 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 Gender Identity Male 07/02/2021 2:37 PM [...] Info) Description 11/23/2024 10:00 AM CDT Appointment [facility] IVR [address] [place] [phone] Elroy Holcomb MD [address] [place] [address] 2L [place] [address] 11/24/2024 9:05 AM CDT Hospital Encounter [facility] RITO OP [address] [place] [phone] Elroy Holcomb MD [address] [place] [address] 2L [place] [address] Surgery General 11/24/2024 9:05 AM CDT - 11/24/2024 11:20 AM CDT Surgery [facility] RITO OP [address] [place] [phone] Elroy Holcomb MD [facility]5 [facility] 2L [place] [address] Bilateral first toe debridement 12/06/2024 10:40 AM CDT [facility] [address] [place] [address], [place] [address] Marbin Flores MD 1201 [facility] DIV OF [place] [address] Niraj Turner MD [address] [place] [address] 2L [place] [address] 2025 1:00 PM MOTOR ELECTRICIAN Office Visit [facility] Physician Group - Neurology [address] [place] [address], [place] [address] Becky Wilson MD [address] [place] [phone] Scheduled Procedures Name Priority Associated Diagnoses Date/Ti me IRRIGATION/DEBRIDEMENT WOUND/TISSUE Peripheral artery disease 11/24/2024 9:05 AM CDT AMPUTATION TOE Peripheral artery disease 11/24/2024 9:05 AM CDT documented as of this encounter Visit Diagnoses Not on filedocumented in this encounter Care Teams Tailing Machine Operator Relationship Specialty Start Date End Date Jeff Strickland MD [address] [place] [address] PCP - General 03/05/18 [place] [address] [place] [address] Orthopedic Surgery 03/28/17 documented as of this encounter
--- OUTSIDE RECORDS SUMMARY | 2024-11-18 21:59 | XMS_ITS | Encounter Summary ---
Author Organization [facility] Address [address] [place] [address] Care Team Providers Care Crystal Flat Grinder Name Role Phone Deandre Bojorquez MD Unavailable [phone] Jeff Strickland MD Primary Care Provider [phone] Encounter Details Date Type Department Care Team (Late st Contact Info) Description 09/24/2024 Results Follow-Up [facility] Early Admission Unit [address] [place] [phone] Angel Crook MD [address] [place] [address] Social History Tobacco Use Types Packs/Day Years [...] and heating? Not hard at all 09/24/2024 [facility] of Occupat ional Health - Occupational Stress [...] time in the past 12 m [facility], were you homeless or living in a chcf (including now)? 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 Gender Identity Male 07/02/2021 2:37 PM [...] Info) Description 11/23/2024 10:00 AM CDT Appointment [facility] IVR [address] [place] [address] Elroy Holcomb MD [facility]5 [facility] 2L [place] [address] 11/24/2024 9:05 AM CDT Hospital Encounter [facility] RITO OP [address] [place] [address] Elroy Holcomb MD [address] [place] [address] 2L [place] [address] Surgery General 11/24/2024 9:05 AM CDT - 11/24/2024 11:20 AM CDT Surgery [facility] RITO OP [address] [place] [address] Elroy Holcomb MD 1225 [facility] 2L [place] [address] Bilateral first toe debridement 12/06/2024 10:40 AM CDT Office Visit [facility] Physician Group - Endocrinology [address] [place] [address], [place] [phone] Marbin Flores MD 1201 [facility] DIV OF [place] [address] Niraj Turner MD [facility]5 [facility] 2L [place] [address] 2025 1:00 PM THERAPEUTIC STRATEGY LEAD Office Visit [facility] Physician Group - Neurology [address] [place] [address], [place] [address] Becky Wilsno MD [address] [place] [address] Scheduled Procedures Name Priority Associated Diagnoses Date/Ti me IRRIGATION/DEBRIDEMENT WOUND/TISSUE Peripheral artery disease 11/24/2024 9:05 AM CDT AMPUTATION TOE Peripheral artery disease 11/24/2024 9:05 AM CDT documented as of this encounter Visit Diagnoses Not on filedocumented in this encounter Care Teams Crystal Flat Grinder Relationship Specialty Start Date End Date Jeff Strickland MD [address] [place] [address] PCP - General 03/05/18 [place] [address] [address] Orthopedic Surgery 03/28/17 documented as of this encounter
--- OUTSIDE RECORDS SUMMARY | 2024-11-18 21:59 | XMS_ITS | Encounter Summary ---
Author Organization [facility] Address [facility]3 [place] [address] Care Team Providers Care Commercial Service Technician Name Role Phone Deandre Bojorquez MD Unavailable [phone] Jeff Strickland MD Primary Care Provider [phone] Encounter Details Date Type Department Care Team (Late st Contact Info) Description 10/28/2023 Lab Requisition [facility] MAIN LAB [address] [place] [phone] Alan Davenport MD [facility] OF [place] [address] Social History Tobacco Use Types Packs/Day Years Used Date Smoking Tobacco: Never Smokeless Tobacco: Never Alcohol Use Standard Drinks/Week Comments Not Currently 0 (1 standard drink = 0.6 oz pur e alcohol) socially in past Sex and Gender Information Value Date Recorded Sex Assigned at Male 07/02/2021 2:37 PM CDT 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 Gender Identity Male 07/02/2021 2:37 PM [...] 10:00 AM CDT Appointment H IVR [address] [place] [address] Elroy Holcomb MD [address] [place] [address] 2L [place] [address] 11/24/2024 9:05 AM CDT Hospital Encounter [facility] RITO OP [address] [place] [address] Elroy Holcomb MD [address] [place] [address] 2L [place] [address] Surgery General 11/24/2024 9:05 AM CDT - 11/24/2024 11:20 AM CDT Surgery [facility] RITO OP [address] [place] [address] Elroy Holcomb MD [address] [place] [address] 2L [place] [address] Bilateral first toe debridement 12/06/2024 10:40 AM CDT Office Visit [facility] - Endocrinology [address] [place] [address], [place] [address] Marbin Flores MD 1201 [facility] DIV OF [place] [address] Niraj Turner MD 1225 [facility] 2L [place] [address] 2025 1:00 PM CARTRIDGE FEEDER Office Visit [facility] Physician Group - Neurology [address] [place] [address], [place] [address] Becky Wilson MD [address] [place] [phone] Scheduled Procedures Name Priority Associated Diagnoses Date/Ti [...] BANK ORDERABLES F inal Result [facility] ([facility]) [address] documented in this encounter Visit Diagnoses Not on filedocumented in this encounter Additional Health Concerns Infection Onset Date Last Indicated Resolved Time COVID-19 Under Investigation 09/13/2024 09/13/2024 09/13/2024 6:36 AM CDT documented as of this encounter Care Teams Commercial Service Technician Relationship Specialty Start Date End Date Jeff Strickland MD [address] [place] [address] PCP - General 03/05/18 [place] [address] [place] [address] Orthopedic Surgery 03/28/17 documented as of this encounter
--- OUTSIDE RECORDS SUMMARY | 2024-11-18 21:59 | XMS_ITS | Encounter Summary ---
Author Organization [facility] Address [address] [place] [address] Care Team Providers Care Toll Operator Name Role Phone Jeff Strickland MD Primary Care Provider Chan Nicholas MD Unavailable [phone] Alan Mccall MD Unavailable [phone] Pepito Haro MD PhD Unavailable Solange Guido MD Unavailable [phone] Encounter Details Date Type Department Care Team (Late st Contact Info) Description 07/26/2024 Orders Only [facility] Information Management [address] [place] [address] Scanning, Provider Social History Tobacco Use Types Packs/Day Years Used Date Smoking Tobacco: Never Smokeless Tobacco: Never Alcohol Use Standard Drinks/Week Comments Yes 0 (1 standard drink = 0.6 oz pur e alcohol) rarely [facility] Utilities Answer Date Recorded In the past 12 months has [employer], gas, oil, or water company threatened [...] on file Legal Sex Male 2:23 AM 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 Gender Identity Not on file Sexual Orientation [...] on filedocumented in this encounter Care Teams Toll Operator Relationship Specialty Start Date End Date Jeff Strickland MD [address] [place] [address] [address] PCP - General Family Medicine 04/02/18 Chan Nicholas MD [facility] STATE [address] [address] Consulting Physician Gastroenterology 11/24/18 Alan Mccall MD [address] [place] [address] [address] Referring Physician Nephrology 11/24/18 Pepito Haro MD PhD [facility] [address] [place] [phone] Consulting Physician Neurosurgery 12/03/22 Solange Guido MD [address]34 [address] [facility] 1120 [place] [address] Referring Physician Cardiovascular Disease 07/23/23 documented as of this encounter
--- OUTSIDE RECORDS SUMMARY | 2024-11-18 21:59 | XMS_ITS | Encounter Summary ---
Author Organization [facility] Address [address] [place] [address] Phone Care Team Providers Care Refrigerator Crater Name Role Phone Jeff Strickland MD Primary Care Provider Chan Nicholas MD Unavailable Alan Mccall MD Unavailable [phone] Lorna Lantigua MD Unavailable [phone] Juliette Savage RN Unavailable [phone] Pepito Haro MD PhD Unavailable Solange Guido MD Unavailable Letha Gil RN Unavailable Encounter Details Date Type Department Care Team (Late st Contact Info) Description 05/02/2021 Ophth Exam [facility] Medicine Ophthalmology [address] [place] [address] 1st [place] [address] Corina Ventura MD PhD [address] [address] Social History Tobacco Use Types [...] on file Legal Sex Male 2:23 AM SPORTS SPECIALIST Gender Identity Not on file Sexual [...] COVID: Suspected 03/24/2023 03/24/2023 03/24/2023 5:45 PM SPORTS SPECIALIST COVID19 03/24/2023 03/24/2023 04/08/2023 3:06 AM SPORTS SPECIALIST COVID: Recovered Comment:Added based on recent COVID infection. 04/08/2023 04/10/2023 07/07/2023 3:06 AM C DT COVID: Suspected 04/10/2024 04/10/2024 04/11/2024 1:24 AM SPORTS SPECIALIST C. difficile suspected 04/11/2024 04/11/202404/11 1:21 PM SPORTS SPECIALIST documented as of this encounter Eye [...] arcade Normal Periphery Normal Normal Care Teams Refrigerator Crater Relationship Specialty Start Date End Date Jeff Strickland MD [address] [address] PCP - General Family Medicine 04/02/18 Chan Nicholas MD [address] [place] [address] [phone] Consulting Physician Gastroenterology 11/24/18 Alan Mccall MD [address] [place] [address] [address] Referring Physician Nephrology 11/24/18 Lorna Lantigua MD [facility] STATE [address] [address] Consulting Physician Cardiology 11/24/18 07/22/23 Juliette Savage, RN [address] [place] [address] Nurse Navigator 06/04/21 03/14/22 Pepito Haro MD PhD [address] [place] [address] Consulting Physician Neurosurgery 12/03/22 Solange Guido MD [address] [facility] [address] [place] [address] Referring Physician Cardiovascular Disease 07/23/23 Letha Gil, RN 4590 [facility] 5300 [place] [address] SHOP Outpatient Blow Mold Machine Operator 04/14/24 04/18/24 documented as of this encounter
--- OUTSIDE RECORDS SUMMARY | 2024-11-18 21:59 | XMS_ITS | Encounter Summary ---
Author Organization [facility] Address [facility]3 [place] [address] Care Team Providers Care Post Exchange Manager Name Role Phone Deandre Bojorquez MD Unavailable [phone] Jeff Strickland MD Primary Care Provider [phone] Encounter Details Date Type Department Care Team (Late st Contact Info) Description 05/29/2023 Lab Requisition [facility] MAIN LAB [address] [place] [phone] Alan Davenport MD [facility]1 [facility] OF [place] [address] Social History Tobacco Use Types Packs/Day Years Used Date Smoking Tobacco: Never Smokeless Tobacco: Never Alcohol Use Standard Drinks/Week Comments Not Currently 0 (1 standard drink = 0.6 oz pur e alcohol) socially in past Sex and Gender Information Value Date Recorded Sex Assigned at Male 07/02/2021 2:37 PM CDT Legal Sex Male 10:14 PM LPTA Gender Identity Male 07/02/2021 2:37 PM CDT [...] 10:00 AM CDT Appointment H IVR [address] [place] [address] lEroy Holcomb MD [address] [place] [address] 2L [place] [address] 11/24/2024 9:05 AM CDT Hospital Encounter [facility] RITO OP [address] [place] [address] Elroy Holcomb MD [address] [place] [address] 2L [place] [address] Surgery General 11/24/2024 9:05 AM CDT - 11/24/2024 11:20 AM CDT Surgery [facility] RITO OP [address] [place] [address] Elroy Holcomb MD [address] [place] [address] 2L [place] [address] Bilateral first toe debridement 12/06/2024 10:40 AM CDT Office Visit [facility] - Endocrinology [address] [place] [address], [place] [address] Marbin Flores MD 1201 [facility] DIV OF [place] [address] Niraj Turner MD 1225 [facility] 2L Div [place] [address] 2025 1:00 PM LPTA Office Visit [facility] Physician Group - Neurology [address] [place] [address], [place] [address] Becky Wilson MD [address] [place] [phone] Scheduled Procedures Name Priority Associated Diagnoses Date/Ti [...] Hold HLA Specimen 05/29/2023 10:30 AM CDT [facility] ([facility]) Comment:The Hold HLA specime n has been received into the lab and will be held for 5 years at 4 degrees. Blood BLOOD SPECIMEN / Unknown 05/21/2023 9:24 AM CDT 05/29/2023 9:24 AM CDT Alan Davenport MD LAB - BLOOD BANK ORDERABLES F inal Result [facility] ([place]) [address] documented in this encounter Visit Diagnoses Not on filedocumented in this encounter Additional Health Concerns Infection Onset Date Last Indicated Resolved Time COVID-19 Under Investigation 09/13/2024 09/13/2024 09/13/2024 6:36 AM CDT documented as of this encounter Care Teams Post Exchange Manager Relationship Specialty Start Date End Date Jeff Strickland MD [address] [place] [address] PCP - General 03/05/18 [place] [address] [place] [address] Orthopedic Surgery 03/28/17 documented as of this encounter
--- OUTSIDE RECORDS SUMMARY | 2024-11-18 21:59 | XMS_ITS | Encounter Summary ---
Author Organization [facility] Address [employer] [place] [address] Care Team Providers Care Mail Handlers Supervisor Name Role Phone Deandre Bojorquez MD Unavailable [phone] Jeff Strickland MD Primary Care Provider [phone] Encounter Details Date Type Department Care Team (Late st Contact Info) Description 07/31/2023 Lab Requisition [facility] MAIN [facility] [address] [place] [id number] Alan Davenport MD 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 Gender Identity Male 07/02/2021 2:37 PM CDT [...] 10:00 AM CDT Appointment H IVR [address] [place] [address] Elroy Holcomb MD [address] [place] [address] 2L [place] [address] 11/24/2024 9:05 AM CDT Hospital Encounter [facility] [address] [place] [address] Elroy Holcomb MD [address] [place] [address] 2L [place] [address] Surgery General 11/24/2024 9:05 AM CDT - 11/24/2024 11:20 AM CDT Surgery [facility] [address] [place] [address] Elroy Holcomb MD [address] [place] [address] 2L [place] [address] Bilateral first toe debridement 12/06/2024 10:40 AM CDT Office Visit [facility] - Endocrinology [address] [place] [address], [place] [phone] Marbin Flores MD [address] [facility] DIV OF [place] [address] Niraj Turner MD 1225 [facility] 2L Div [place] [address] 2025 1:00 PM OCCUPATIONAL THERAPIST ASSISTANTS Office Visit [facility] - Neurology [address] [place] [address], [place] [address] Becky Wilson MD [address] [place] [phone] Scheduled Procedures Name Priority Associated Diagnoses Date/Ti [...] inal Result [facility] ([facility]) [address] documented in this encounter Visit Diagnoses Not on filedocumented in this encounter Additional Health Concerns Infection Onset Date Last Indicated Resolved Time COVID-19 Under Investigation 09/13/2024 09/13/2024 09/13/2024 6:36 AM CDT documented as of this encounter Care Teams Mail Handlers Supervisor Relationship Specialty Start Date End Date Jeff Strickland MD [address] [place] [address] PCP - General 03/05/18 [place] [address] [place] [address] Orthopedic Surgery 03/28/17 documented as of this encounter
--- OUTSIDE RECORDS SUMMARY | 2024-11-18 21:59 | XMS_ITS | Encounter Summary ---
Author Organization [facility] Address [address] [place] [address] Care Team Providers Care Finished Garment Inspector Name Role Phone Deandre Bojorquez MD Unavailable [phone] Jeff Strickland MD Primary Care Provider [phone] Encounter Details Date Type Department Care Team (Late st Contact Info) Description 03/12/2024 Lab Requisition [facility] MAIN LAB [address] [place] [phone] Alan Davenport MD [facility]1 [facility] OF [place] [address] Social History Tobacco Use Types Packs/Day Years Used Date Smoking Tobacco: Never Smokeless Tobacco: Never Alcohol Use Standard Drinks/Week Comments Not Currently 0 (1 standard drink = 0.6 oz pur e alcohol) socially in past Sex and Gender Information Value Date Recorded Sex Assigned at Male 07/02/2021 2:37 PM CDT Legal Sex Male 10:14 PM HEATING SYSTEMS INSTALLER Gender Identity Male 07/02/2021 2:37 PM [...] 10:00 AM CDT Appointment H IVR [address] [place] [address] Elroy Holcomb MD [address] [place] [address] 2L [place] [address] 11/24/2024 9:05 AM CDT Hospital Encounter [facility] RITO OP [address] [place] [address] Elroy Holcomb MD [address] [place] [address] 2L [place] [address] Surgery General 11/24/2024 9:05 AM CDT - 11/24/2024 11:20 AM CDT Surgery [facility] R[facility] OP [address] [place] [address] Elory Holcomb MD [address] [place] [address] 2L [place] [address] Bilateral first toe debridement 12/06/2024 10:40 AM CDT Office Visit [facility] - Endocrinology [address] [place] [address], [place] [phone] Marbin Flores MD [address] [facility] DIV OF [place] [address] Niraj Turner MD 1225 [facility] 2L [place] [address] 2025 1:00 PM HEATING SYSTEMS INSTALLER Office Visit [facility] - Neurology [address] [place] [address], [place] [address] Becky Wilson MD [address] [place] [phone] Scheduled Procedures Name Priority Associated Diagnoses Date/Ti me IRRIGATION/DEBRIDEMENT WOUND/TISSUE Peripheral artery disease 11/24/2024 9:05 AM CDT AMPUTATION TOE Peripheral artery disease 11/24/2024 9:05 AM CDT documented as of this encounter Procedures Procedure Name Priority Date/Time Associated Diagnosis Comments HOLD HLA SPECIMEN Routine 03/05/2024 1:4 0 PM HEATING SYSTEMS INSTALLER documented in this encounter Results * HOLD HLA SPECIMEN (03/05/2024 1:40 PM HEATING SYSTEMS INSTALLER) Hold HLA Specimen 03/12/2024 3:00 PM HEATING SYSTEMS INSTALLER [facility] ([facility]) Comment:The Hold HLA specime n has been received into the lab and will be held for 5 years at 4 degrees. Blood BLOOD SPECIMEN / Unknown 03/05/2024 1:40 PM HEATING SYSTEMS INSTALLER 03/12/2024 1:40 PM HEATING SYSTEMS INSTALLER Alan Davenport MD LAB - BLOOD BANK ORDERABLES F inal Result [facility] ([facility]) [address] [place] [address], [facility] documented in this encounter Visit Diagnoses Not on filedocumented in this encounter Additional Health Concerns Infection Onset Date Last Indicated Resolved Time COVID-19 Under Investigation 09/13/2024 09/13/2024 09/13/2024 6:36 AM CDT documented as of this encounter Care Teams Finished Garment Inspector Relationship Specialty Start Date End Date eJff Strickland MD [address] [place] [address] PCP - General 03/05/18 [place] [address] [place] [address] Orthopedic Surgery 03/28/17 documented as of this encounter
--- OUTSIDE RECORDS SUMMARY | 2024-11-18 21:59 | XMS_ITS | Encounter Summary ---
Author Organization [facility] Address [address] [facility] [place] [address] Care Team Providers Care Park Police Name Role Phone Deandre Bojorquez MD Unavailable [phone] Jeff Strickland MD Primary Care Provider [phone] Reason for Visit * Reason Onset Date Comments Post-Op 09/03/2024 Encounter Details Date Type Department Care Team (Late st Contact Info) Description 09/03/2024 Telephone [facility] - Cardiology [address] [facility] [address] [place] [address] Hannah Goodman MD [address] [facility] CARDIOLOGY [address] [place] [address] Post-Op Social History Tobacco Use Types Packs/Day [...] and heating? Not hard at all 09/04/2024 [facility] [place] of Occupat ional Health - Occupational Stress [...] PM CDT Legal Sex Male 10:14 PM PAWN SHOP KEEPER Gender Identity Male 07/02/2021 2:37 PM CDT [...] confused post op Patient Call Back number: [phone] documented in this encounter Plan of Treatment Upcoming Encounters Date Type Department Care Team (Late st Contact Info) Description 11/23/2024 10:00 AM CDT Appointment [facility] IVR [address] [place] [address] Elroy Holcomb MD [address] [place] [address] 2[address] DIV [place] [address] 11/24/2024 9:05 AM CDT Hospital Encounter [facility] I[facility] OP [address] [place] [address] Elroy Holcomb MD [address] [place] [address] 2[address] DIV [place] [address] Surgery General 11/24/2024 9:05 AM CDT - 11/24/2024 11:20 AM CDT Surgery [facility] R[facility] [address] [place] [address] Elroy Holcomb MD [address] [place] [address] 2L DIV [place] [address] Bilateral first toe debridement 12/06/2024 10:40 AM CDT Office Visit [facility] - Endocrinology [address] [place] [address], [place] [phone] Marbin Flores MD [address] [place] [address] DIV OF ABD [place]ANS[place] [address] Niraj Turner MD [address] [place] [address] 2L [place] [address] 2025 1:00 PM PAWN SHOP KEEPER Office Visit [facility] - Neurology [facility]5 [facility], [place] [address] Becky Wilson MD [address] [place] [phone] Scheduled Procedures Name Priority Associated Diagnoses Date/Ti [...] documented as of this encounter Care Teams Park Police Relationship Specialty Start Date End Date Jeff Strickland MD [address] [place] [address] PCP - General 03/05/18 [place] [address] [address] Orthopedic Surgery 03/28/17 documented as of this encounter
--- NOTE | 2024-11-18 22:03 | PC.NURSE ---
Pt was placed in room pending provider evaluation, pt stated he did not want to wait any longer as he has an opthomology appt on Friday, wheeled out of ED by visitor.
== END 2024-11-18 22:04 | disposition left against medical advice (07) ==
PROVIDERS: PCP Family Medicine
DX: H53.8 Other visual disturbances (principal)
CPT/HCPCS: 99199

== ENCOUNTER 2024-11-19 01:10 | Emergency (ER) | payer MEDICARE, SELFPAY ==
--- OUTSIDE RECORDS SUMMARY | 2009-04-18 10:00 | XMS_ITS | Continuity of Care Document ---
Author Organization [facility] Address [address] [place] [address] Phone Care Team Providers Care Volunteer Services Specialist Name Role Phone Kee Rodriguez Unavailable Unavailable Procedures Procedure Date Office/outpatient Visit, Est Eye Exam Established Pt Advance Directives Directive Yes / No Effective Date File Name No Information Encounters Encounter Description Practice Location Reason(s) For Visit Diagnoses Date Provider Providers Copied on Encounter Office/outpat ient Visit, Est [facility], [address] [place] [address] [address], [place], [place], [address], tel:[phone] SEC [facility] No Information Mar-0 2-[address] [place] [address], [place], [place], [facility], [place]. tel:[phone] [facility], [address] [place] [address] [address], [place], [place], [address], tel:[phone] SEC [facility] No Information Jul-3 0-200 7 David OD Freddy. [address], [place], [place], [facility], [place]. tel:[phone] Family History Family Member Type Diagnosis Age At Onset No Information Payers Payer name Insurance type Covered constitution party ID Authoriza tion(s) No Information Social [...]
--- OUTSIDE RECORDS SUMMARY | 2009-04-18 10:00 | XMS_ITS | Continuity of Care Document ---
Author Organization [facility] Address [address] [place] [address] Phone Care Team Providers Care Hand Booked Folder And Stitcher Name Role Phone Kee Rodriguez Unavailable Unavailable Procedures Procedure Date Office/outpatient Visit, Est Eye Exam Established Pt Advance Directives Directive Yes / No Effective Date File Name No Information Encounters Encounter Description Practice Location Reason(s) For Visit Diagnoses Date Provider Providers Copied on Encounter Office/outpat ient Visit, Est [facility], [address] [place] [address] [address], [place], [place], [address], tel:[phone] SEC [facility] No Information Mar-0 2-201 0 Krishnasamy Kee. [address] [facility] [place] [address], [place], [place], [facility], [place]. tel:[phone] [facility], [address] [place] [address] [address], [place], [place], [address], tel:[phone] SEC [facility] No Information Jul-3 0-200 7 David OD Freddy. [address], [place], [place], [facility], [place]. tel:[phone] Family History Family Member Type Diagnosis Age [...]
--- OUTSIDE RECORDS SUMMARY | 2023-09-09 06:59 | XMS_ITS | Continuity of Care Document ---
Author Organization [employer] [place] Address [address] [facility] [address] [place] [address] Phone Care Team Providers Care Marketing Proposal Coordinator Name Role Phone Olu Payan Unavailable [...] Diagnoses Date Provider Providers Copied on Encounter [facility], [place], [place], [address], tel:[phone] [place] No Information 4 Gladis Olu. [address] [place] [address], [address], [place], [place], [facility], . tel: [phone] [address] [place] [address], [place], [place], [address], tel:[phone] [place] No Information 4 Genoveva Mcdonald. . Referring Provider: Jeff Strickland [address] [place] [address] 162 [address], [place], [facility]. tel:[phone] [place] [address] [address], [place], [place], [address], tel:[phone] [place] No Information 4 Gladis Olu. [address] [place] [address], [address], [place], [facility], . tel: [phone] Referring Provider: Yanira Chin [facility] 162 [address], [place], [facility]. tel:[phone] [address] [address], [place], [place], [address], tel:[phone] [place] No Information 4 Gladis Raines. [address] [place] [address], [address], [place], [facility], . tel: [phone] Referring Provider: Yanira Chin [facility] 162 [address], [place], [address]. tel:[phone], [address], tel:[phone] [place] No Information 4 Jacinto Fairchild. . Referring Provider: Yanira Chin [facility] [address], [place], [address]. tel:[phone], [place], [place], [address], [place] tel:[phone] [place] No Information 4 Jacinto Fairchild. . Referring Provider: Jeff Strickland [address] [place] [address] [address], [place], [facility]. tel:[phone], [address], tel:[phone] [place] No Information 4 Genoveva Mcdonald. . Referring Provider: Jeff Strickland [address] [place] [address] [address], [place], [facility]. tel:[phone], [id number], tel:[phone] [place] No Information 4 Gladis Raines. [address] [facility], [address], [place], [facility], . tel: [phone] Referring Provider: Jeff Strickland [address] [place] [address] [address], [place], [facility]. tel:[phone], [address], tel:[phone] [place] No Information 0 4 Genoveva Mcdonald. . Referring Provider: Jeff Strickland [address] [place] [address] [address], [place], [facility]. tel:[phone], [place], [address], [place] tel:[phone] [place] No Information 0 4 Gladis Raines. [address] [facility], [address], [place], [facility], . tel: [phone] Referring Provider: Jeff Strickland [address] [place] [address] [address], [place], [facility]. tel:[phone] Family History Family Member Type Diagnosis Age At Onset No Information Payers Payer name Insurance type Covered green party ID Deigo suarez(ernesto Hadley [id number] Social History Type Description Quantity Date Captured [...]
--- OUTSIDE RECORDS SUMMARY | 2024-02-03 06:45 | XMS_ITS ---
Author Organization [facility] Address [address] [facility] [place] [address] Care Team Providers Care Carbon Grinder Name Role Phone DONNIE WOOD MD Primary Care Provider Lance Sergio Trujillo Unavailable [phone] ALLERGIES No Known Allergies REASON FOR VISIT [...] retired. 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 John's, [place]'s and Gaenslen's are positive bilaterally. There is [...]
--- OUTSIDE RECORDS SUMMARY | 2024-03-03 06:30 | XMS_ITS ---
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 He denies tobacco, alcohol, or illicit drug abuse PROBLEMS Problem Type ICD Code Onset Dates Problem Status W/U Status Risk SNOMED Code Notes Problem Primary osteoarthritis, 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) Active confirmed Localized, primary osteoarthritis of the shoulder region ([id number]) VITAL SIGNS Blood pressure systolic 112 mm Hg 03/03/19 25 Blood pressure diastolic 62 mm Hg 025 Heart Rate 59 /min 03/03/2024 Respiratory Rate 18 /min 03/03/2024 Height 5 ft 9 in in 03/03/2024 Weight 229 lbs 03/03/2024 BMI 33.81 kg/m2 03/03/2024 Encounters Encounter Location Date Provider Diagnosis [facility] [address] [facility] [place] [address] 03/03/2024 Sergio Stynowick Pain in left knee [...] occurred. This note was dictated by KELSIE Chakrabroty. Total Time Spent with Patient and Medical [...] patient's typical axial low back pain. John's, [place]'s and Gaenslen's are positive bilaterally. There is [...]
--- OUTSIDE RECORDS SUMMARY | 2024-03-08 07:45 | XMS_ITS ---
Author Organization [facility] Address [address] [place] [address] [place] [address] Care Team Providers Care Supervisor Special Services Name Role Phone DONNIE WOOD MD Primary Care Provider Robba Sergio Trujillo Unavailable [phone] REASON FOR VISIT BILAT SHOULDER JOINT INJECTION (NEED XRAY - BEING DONE AT [facility]) MEDICATIONS Medication SIG (Take, Route, Frequency, [...] Location Date Provider Diagnosis [facility] [address] [place] [phone] 03/08/2024 Sergio Rivera Primary osteoarthritis, unspecified shoulder [...] discharged home in good condition with a haul driver. X-ray time: 6 seconds Progress Notes [...] patient's typical axial low back pain. John's, [place]'s and Gaenslen's are positive bilaterally. There is [...] and Follow-up: Follow-up Plan documen wendy:: Yes [facility] Quality 2020: [facility] Documented:: Compliant
--- OUTSIDE RECORDS SUMMARY | 2024-03-31 10:13 | XMS_ITS ---
Author Organization [facility] Address [address] [place] [address] Care Team Providers Care Pig Caster Name Role Phone DONNIE WOOD MD Primary Care Provider Unavaila Sergio Trujillo Unavailable [phone] Encounters Encounter Location Date Provider Diagnosis [facility] [address] [place] [address] 03/31/2024 Sergio Rivera PLAN OF TREATMENT No Information
--- OUTSIDE RECORDS SUMMARY | 2024-11-19 01:13 | XMS_ITS | Clinical Summary ---
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 SFA, and TP trunk with an occluded [...] Owusu 11/12/2024 9:47 AM > Dictated by Photography Coordinator I, Elroy Holcomb MD have personally reviewed [...] monitored moderate sedation ATTENDING: Elroy Holcomb MD ENTRY SPECIALISTS: Griffin Rodriguez MD; Elroy Owusu MD ANESTHESIA: [...] exchanges this was upsized for a 5 Malay sheath. A guidewire and omniflush catheter were [...] evaluation, please review the evaluation forms in [facility]. For details on monitored clinical parameters during the intra-service sedation time, please review the procedure nurse documentation in [facility]. Procedure Note Elroy Holcomb MD - 11/12/2024 [...] monitored moderate sedation ATTENDING: Elroy Holcomb MD ENTRY SPECIALISTS: Griffin Rodriguez MD; Elroy Owusu MD ANESTHESIA: [...] of exchanges thiswas upsized for a 5 Malay sheath. A guidewire and omniflush catheter werethen [...] evaluation, please review the evaluation forms in [facility]. For details on monitored clinical parameters during the intra-service sedation time, please review the procedure nurse documentation in [facility]. IMPRESSION: Left lower extremity angiogram with patent REEL CUTTER, SFA with areas of < 50% stenosis, patent TP trunk with occlusions in the peroneal and PT shortly after origin, with single vessel runoff to the foot via the AT with occlusion in the DP in the foot. Right lower extremity angiogram with patent REEL CUTTER, SFA, and TP trunk with an occluded AT distally, andocclusion in peroneal at level of ankle, and multifocal areas of stenosis in thePT which appears occluded at the level of the ankle. Successful deploymentof 5 Fr Mynx control closure device. Total fluoroscopy time of 4.2min. Total contrast usage of 60mL > Dictated by Elroy Owusu 11/12/2024 9:47 AM > Dictated by Photography Coordinator I, Elroy Holcomb MD have personally reviewed and interpreted this examination/study. > Interpreting Provider: Elroy Holcomb MD on 11/12/2024 3:38 PM us Elroy Holcomb MD IR ORDERABLES Final Resu lt * (ABNORMAL) BASIC METABOLIC PANEL (CALCIUM TOTAL) (11/12/2024 7:11 AM CDT) Only the most recent of6 resultswithin the time period is included. BUN 28(H) 7 - 26 mg/dL 11/12/2024 7:59 AM CDT [facility] Creatinine 7.33(H) 0.71 - 1.16 mg/dL 11/12/2024 7:59 AM CDT [facility] Sodium 138 136 - 145 mmol/L 11/12/2024 7:59 AM CDT [facility] Potassium 3.5 3.5 - 4.5 mmol/L 11/12/2024 7:59 AM [facility] Chloride 97(L) 98 - 107 mmol/L 11/12/2024 7:59 AM [facility] CO2 25 22 - 29 mmol/L 11/12/2024 7:59 AM [facility] Glucose 164(H) 70 - 99 mg/dL 11/12/2024 7:59 AM [facility] Calcium 7.8(L) 8.4 - 10.2 mg/dL 11/12/2024 7:59 AM [facility] Anion Gap 16 6 - 16 11/12/2024 7:59 AM [facility] BUN/Creatinine Ratio 4(L) 7 - 23 11/12/2024 7:59 AM [facility] Osmolality Calculated 295 275 - 295 mOsm/kg 11/12/2024 7:59 AM [facility] eGFR by CKD-EPI 8(L) >=90 mL/min/1.7 3 m2 11/12/2024 7:59 AM [facility] Comment:Estimated Glomerular Filtration Rate (eGFR) calculated using the CKD-EPI Creatinine Equation (2020), per the National Kidney Foundation and [place] [employer] of Nephrology recommendations. Blood BLOOD SPECIMEN / Unknown Lab Venipuncture / Unknown 11/12/2024 7:11 AM CDT 11/12/2024 7:44 AM CDT Elroy Holcomb MD LAB - CHEMISTRY ORDERABLES Final Result [facility] [address] [place] [address], [facility] [phone] * (ABNORMAL) GLUCOSE - POINT OF CARE (11/12/2024 7:05 AM CDT) Only the most recent of54 resultswithin the time period is included. Glucose WB/POC 193(H) 70 - 99 mg/dL 11/12/2024 7:06 AM [facility] Specimen Type Venous 11/12/2024 7:06 AM [facility] Blood BLOOD SPECIMEN / Unknown 11/12/2024 7:05 AM CDT 11/12/2024 7:06 AM CDT us Elroy Holcomb MD LAB - POINT OF CARE ORDERA BLES Final Result Performing Organization Address City/[facility]/ZIP Co de Phone Number [place] [phone] [place] [address], [place] [phone] * CARDIAC EKG ORDER (10/29/2024 4:31 PM [...] 71(H) <=35 ng/L 10/28/2024 3:13 AM CDT [facility] Delta Troponin I HS 10/28/2024 3:13 AM CDT [facility] Comment:Delta value intentio tito not calculated. Baseline to 1 hour specimen collection interval exceeded. Blood BLOOD SPECIMEN / Unknown Venipuncture / Unknown 10/28/2024 2:31 AM CDT 10/28/2024 2:37 AM CDT us Savanna Mcfarlane MD LAB - CHEMISTRY ORDERABLES Fi nal Result [address] [address], [place] [phone] * LACTIC ACID BLOOD REFLEX TO REPEAT (10/28/2024 2:31 AM CDT) Only the most recent of5 resultswithin the time period is included. Lactic Acid-Stat 1.9 <=2.0 mmol/L 10/28/2024 3:06 AM CDT [facility] Blood BLOOD SPECIMEN / Unknown Venipuncture / Unknown 10/28/2024 2:31 AM CDT 10/28/2024 2:37 AM CDT us Savanna Mcfarlane MD LAB - CHEMISTRY ORDERABLES [facility] Result [facility] [address] [place] [address], [facility] [phone] * XR Chest 2Vw (10/27/2024 11:58 PM CDT) Only the most recent of4 resultswithin the time period is included. Anatomical Region Laterality Modality Chest Digital Radiogra phy 10/28/2024 12:0 2 AM CDT Narrative 10/28/2024 3:32 AM CDT PROCEDURE: XR CHEST 2VW, DATE/TIME OF EXAM: 10/27/2024 11:58 PM, LOCATION [facility] INDICATION: R07.9: Chest pain, unspecified type [...] Dictated by Branden Jha MD, (vice president industrial relations). > Dictated by Photography Coordinator I, Blake Plasencia MD have personally reviewed and interpreted this examination/study. > Interpreting Provider: Blake Plasencia MD on 10/28/2024 3:32 AM Procedure Note Blake Plasencia MD - 10/28/2024 PROCEDURE: XR CHEST 2VW, DATE/TIME OF EXAM: 10/27/2024 11:58 PM, LOCATION [facility] INDICATION: R07.9: Chest pain, unspecified type [...] Dictated by Branden Jha MD, (vice president industrial relations). > Dictated by Photography Coordinator I, Blake Plasencia MD have personally reviewed and interpreted this examination/study. > Interpreting Provider: Blake Plasencia MD on 10/28/2024 3:32 AM Savanna Mcfarlane MD DIAGNOSTIC IMAGING ORDERABLES Final Result * (ABNORMAL) TROPONIN-I HIGH SENSITIVE BASELINE + 1HR (10/27/2024 11:53 PM CDT) Only the most recent of8 resultswithin the time period is included. [facility] Troponin I High Sensitive 72(H) <=35 ng/L 10/28/2024 12:49 AM [facility] Blood BLOOD SPECIMEN / Unknown Venipuncture / Unknown 10/27/2024 11:53 PM CDT 10/28/2024 12:12 AM CDT Savanna Mcfarlane MD LAB - CHEMISTRY ORDERABLES Fi nal Result [address] [address], [facility] [phone] * (ABNORMAL) CBC W AUTO DIFFERENTIAL (10/27/2024 11:53 PM CDT) Only the most recent of11 resultswithin the time period is included. [facility] WBC 7.8 4.0 - 10.7 x10E9/L 10/28/2024 12:26 AM [facility] RBC Count 3.31(L) 4.30 - 5.80 x10E12/L 10/28/2024 12:26 AM [facility] Hemoglobin 9.0(L) 13.3 - 17.5 g/dL 10/28/2024 12:26 AM [facility] Hematocrit 27.9(L) 38.7 - 51.1 % 10/28/2024 12:26 AM [facility] MCV 84.3 80.0 - 98.0 fL 10/28/2024 12:26 AM [facility] MCH 27.2 26.7 - 33.6 pg 10/28/2024 12:26 AM [facility] MCHC 32.3 31.7 - 36.3 g/dL 10/28/2024 12:26 AM [facility] RDW-CV 15.9(H) 11.3 - 14.8 % 10/28/2024 12:26 AM [facility] Platelet Count 187 150 - 420 x10E9/L 10/28/2024 12:26 AM [facility] MPV 10.2 7.8 - 11.4 fL 10/28/2024 12:26 AM [facility] Neutrophil % 67.0 41.0 - 74.0 % 10/28/2024 12:26 AM [facility] Lymphocyte % 16.4(L) 17.0 - 47.0 % 10/28/2024 12:26 AM [facility] Monocyte % 14.0(H) 3.0 - 11.0 % 10/28/2024 12:26 AM [facility] Eosinophil % 1.9 0.0 - 7.0 % 10/28/2024 12:26 AM [facility] Basophil % 0.1 0.0 - 1.6 % 10/28/2024 12:26 AM [facility] Immature Granulocytes % 0.6 0.0 - 1.0 % 10/28/2024 12:26 AM [facility] Neutrophil Absolute 5.23 1.60 - 7.50 x10E9/L 10/28/2024 12:26 AM [facility] Lymphocyte Absolute 1.28 1.00 - 4.40 x10E9/L 10/28/2024 12:26 AM [facility] Monocyte Absolute 1.09(H) 0.15 - 1.00 x10E9/L 10/28/2024 12:26 AM [facility] Eosinophil Absolute 0.15 0.00 - 0.60 x10E9/L 10/28/2024 12:26 AM [facility] Basophil Absolute 0.01 0.00 - 0.13 x10E9/L 10/28/2024 12:26 AM [facility] Blood BLOOD SPECIMEN / Unknown Venipuncture / Unknown 10/27/2024 11:53 PM CDT 10/28/2024 12:13 AM CDT us Savanna Mcfarlane MD LAB - HEMATOLOGY ORDERABLES F inal Result [facility] [address] [place] [address], [facility] [phone] * (ABNORMAL) COMPREHENSIVE METABOLIC PANEL (10/27/2024 11:53 PM CDT) Only the most recent of13 resultswithin the time period is included. BUN 34(H) 7 - 26 mg/dL 10/28/2024 12:45 AM [facility] Creatinine 7.86(H) 0.71 - 1.16 mg/dL 10/28/2024 12:45 AM [facility] Sodium 132(L) 136 - 145 mmol/L 10/28/2024 12:45 AM [facility] Potassium 3.5 3.5 - 4.5 mmol/L 10/28/2024 12:45 AM [facility] Chloride 95(L) 98 - 107 mmol/L 10/28/2024 12:45 AM [facility] CO2 25 22 - 29 mmol/L 10/28/2024 12:45 AM [facility] Glucose 104(H) 70 - 99 mg/dL 10/28/2024 12:45 AM [facility] Calcium 8.5 8.4 - 10.2 mg/dL 10/28/2024 12:45 AM [facility] Protein Total 5.6(L) 6.0 - 8.3 g/dL 10/28/2024 12:45 AM [facility] Albumin 2.2(L) 3.4 - 5.0 g/dL 10/28/2024 12:45 AM [facility] Bilirubin Total 0.3 0.2 - 1.2 mg/dL 10/28/2024 12:45 AM [facility] Alkaline Phosphatase 104 40 - 150 U/L 10/28/2024 12:45 AM [facility] ALT 56(H) 5 - 55 U/L 10/28/2024 12:45 AM [facility] AST 48(H) 5 - 34 U/L 10/28/2024 12:45 AM [facility] Anion Gap 12 6 - 16 10/28/2024 12:45 AM [facility] BUN/Creatinine Ratio 4(L) 7 - 23 10/28/2024 12:45 AM [facility] Osmolality Calculated 282 275 - 295 mOsm/kg 10/28/2024 12:45 AM [facility] Albumin/Globulin Ratio 0.6(L) 1.1 - 2.3 10/28/2024 12:45 AM [facility] eGFR by CKD-EPI 7(L) >=90 mL/min/1.7 3 m2 10/28/2024 12:45 AM [facility] Comment:Estimated Glomerular Filtration Rate (eGFR) calculated using the CKD-EPI Creatinine Equation (2020), per the National Kidney Foundation and [place] [employer] of Nephrology recommendations. Blood BLOOD SPECIMEN / Unknown Venipuncture / Unknown 10/27/2024 11:53 PM CDT 10/28/2024 12:12 AM CDT us Savanna Mcfarlane MD LAB - CHEMISTRY ORDERABLES Fi nal Result [facility] [address] [place] [address] [phone] * LIPASE BLOOD (10/27/2024 11:53 PM CDT) Only the most recent of3 resultswithin the time period is included. Lipase 41 8 - 78 U/L 10/28/2024 12:45 AM [facility] Blood BLOOD SPECIMEN / Unknown Venipuncture / Unknown 10/27/2024 11:53 PM CDT 10/28/2024 12:12 AM CDT Narrative [facility] - 10/28/2024 12:45 AM CDT Lipase results from the Matthew Alinity analyzer may not be comparable with other methodologies. Savanna Mcfarlane MD LAB - CHEMISTRY ORDERABLES Fi nal Result [facility] [address] [place] [address], [facility] [phone] * HLA ANTIBODY SCREEN LUM CLASS 2 SAB (10/27/2024 2:40 PM CDT) Pathologist [facility] % PRA 0 11/04/2024 4:03 PM CDT [facility] ([facility]) Class 2 LUM SAB Moderate Risk DQ6 11/04/2024 4:03 PM CDT [facility] ([facility]) Class 2 SAB Test Date [id number] 11/04/2024 4:03 PM CDT [facility] ([facility]) Comment: Methodology - Luminex Bead-Based Immunoassay. This test was developed and its performance characteristics determined by the [facility]. It has not been cleared [...] high complexity clinical laboratory testing. CLIA ID# [id number] Performed at: [facility], [address] [place] [id number] Condominium Property Manager: Steven Gonzalez, Ph.D., D([facility]), Blood BLOOD SPECIMEN / Unknown No Charge Blood Draw / Unknown 10/27/2024 2:40 PM CDT 11/01/2024 2:41 PM CDT Alan Davenport MD LAB - BLOOD BANK ORDERABLES F inal Result Performing Organization Address [facility]/ZIP Co de Phone Number [facility] ([facility]) [address] [place] [id number], [place] * HLA ANTIBODY SCREEN LUM CLASS 1 SAB (10/27/2024 2:40 PM CDT) % PRA 0 11/04/2024 4:03 PM CDT [facility] ([facility]) Class 1 SAB Test Date [id number] 11/04/2024 4:03 PM CDT [facility] ([facility]) Comment: Methodology - Luminex Bead-Based Immunoassay. This test was developed and its performance characteristics determined by the [facility]. It has not been cleared [...] high complexity clinical laboratory testing. CLIA ID# [id number] Performed at: [facility], [address] [place] [address] Condominium Property Manager: Steven Gonzalez, Ph.D., D([facility]), Blood BLOOD SPECIMEN / Unknown No Charge Blood Draw / Unknown 10/27/2024 2:40 PM CDT 11/01/2024 2:41 PM CDT Alan Davenport MD LAB - BLOOD BANK ORDERABLES F inal Result [facility] ([facility]) [address] [place], [place] [address] * (ABNORMAL) PTH INTACT ([facility]) (10/21/2024 1:11 PM CDT) Only the most recent of2 resultswithin the time period is included. PTH Intact 316.8(H) 8.0 - 77.0 pg/mL 10/21/2024 1:56 PM CDT [facility] Blood BLOOD SPECIMEN / Unknown Lab Venipuncture / Unknown 10/21/2024 1:11 PM CDT 10/21/2024 1:23 PM CDT Result [facility] Becky Wilson MD LAB - CHEMISTRY ORDERABLES Fin al Result [address] [address], [place] [phone] * LAB MISC TEST (10/21/2024 1:11 PM CDT) Pathologist [facility] Test Name PHOSPHO-TAU 217 PLASMA 10/25/2024 12:29 PM CDT [facility] Test Result See Scanned Report 10/25/2024 12:29 PM CDT [facility] Comment Ref Lab [place] 10/25/2024 12:29 PM CDT [facility] Blood BLOOD SPECIMEN / Unknown Lab Venipuncture / Unknown 10/21/2024 1:11 PM CDT 10/21/2024 1:15 PM CDT Becky Wilson MD LAB SEND OUT Final Result Performing Organization Address City/[facility] Co de Phone Number [facility] [employer] [address] [place] [address] * MAGNESIUM BLOOD (10/21/2024 1:11 PM CDT) Only the most recent of14 resultswithin the time period is included. [facility] Magnesium 1.6 1.6 - 2.6 mg/dL 10/21/2024 1:49 PM CDT [facility] Blood BLOOD SPECIMEN / Unknown Lab Venipuncture / Unknown 10/21/2024 1:11 PM CDT 10/21/2024 1:20 PM CDT Result [facility] Becky Wilson MD LAB - CHEMISTRY ORDERABLES Fin al Result Performing Organization Address City/[facility]/ZIP Co de Phone Number [address] [address], [place] [phone] * AMMONIA (10/21/2024 1:11 PM CDT) Pathologist [facility] Department Ammonia 30 <=72 umol/L 10/21/2024 1:32 PM CDT [facility] Blood BLOOD SPECIMEN / Unknown Lab Venipuncture / Unknown 10/21/2024 1:11 PM CDT 10/21/2024 1:15 PM CDT Becky Wilson MD LAB - CHEMISTRY ORDERABLES Fin al Result [address] [address], [facility] [phone] * CT Head Wo Contrast (10/19/2024 3:03 PM CDT) Only the most recent of4 resultswithin the time period is included. Anatomical Region Laterality Modality Head Computed Tomogra phy 10/19/2024 3:11 PM CDT Impressions 10/19/2024 3:41 PM CDT IMPRESSION: 1.No acute intracranial hemorrhage, territorial infarct, or significant mass effect. Report dictated by Saroj Linda MD, MD (vice president industrial relations). > Dictated by Photography Coordinator I, Raymundo Hanson MD have personally reviewed [...] by Saroj Linda MD, MD (vice president industrial relations). > Dictated by Photography Coordinator I, Raymundo Hanson MD have personally reviewed [...] [facility] MUSE QRS Duration ms 96 ms [facility] MUSE Q-T Interval ms 494 ms [facility] MUSE QTC Calculation (Bezet) 509 ms [facility] MUSE Calculated P [place] 69 degrees [facility] MUSE Calculated R [place] -63 degrees [facility] MUSE Calculated T [place] -90 degrees [facility] MUSE Interpretation EKG NORMAL SINUS RHYTHM LEFT ANTERIOR FASCICULAR BLOCK T WAVE ABNORMALITY, CONSIDER INFEROLATERAL ISCHEMIA PROLONGED QT ABNORMAL ECG . Confirmed by DOUG CAGLE MD ([id number]) on 10/23/2024 11:38:28 PM [facility] MUSE 10/19/2024 2:21 PM CDT 10/23/2024 11:38 PM CDT Alfreda Smith PA-C ECG ORDERABLES Edite d Result - Final [facility] MUSE * (ABNORMAL) B-TYPE NATRIURETIC PEPTIDE (10/17/2024 7:33 PM CDT) Only the most recent of3 resultswithin the time period is included. BNP 471(H) <100 pg/mL 10/17/2024 10:07 PM CDT [facility] Comment: A decision threshold of 100 [...] LAB - CHEMISTRY ORDERABLES Fi nal Result [facility] [address] [place] [address], [facility] [phone] * XR CHEST 1VW PORTABLE (10/09/2024 7:27 PM CDT) Only the most recent of2 resultswithin the time period is included. Anatomical Region Laterality Modality Chest Digital Radiogra phy 10/09/2024 10:4 9 PM CDT Narrative 10/10/2024 1:17 AM CDT PROCEDURE: XR CHEST 1VW PORTABLE, DATE/TIME OF EXAM: 10/09/2024 7:27 PM, LOCATION [facility] INDICATION: R06.02: Short of breath on exertion ADDITIONAL CLINICAL INFORMATION: Ordering Provider Reason For Exam: r/o effusion, pneumonia Technologist Note: Additional: COMPARISON: Chest x-ray from 10/07/2024. FINDINGS/IMPRESSION: There is no focal consolidation, pleural effusion, or pneumothorax.The cardiomediastinal silhouette is normal. No displaced fractures identified. Hardware projecting over thoracic spine. > Dictated by Otis Bocanegra MD (vice president industrial relations). > Dictated by Photography Coordinator I, Blake Plasencia MD have personally reviewed and interpreted this examination/study. > Interpreting Provider: Blake Plasencia MD on 10/10/2024 1:17 AM Procedure Note Blake Plasencia MD - 10/10/2024 PROCEDURE: XR CHEST 1VW PORTABLE, DATE/TIME OF EXAM: 10/09/2024 7:27PM, LOCATION [facility] INDICATION: R06.02: Short of breath on exertion ADDITIONAL CLINICAL INFORMATION: Ordering Provider Reason For Exam: r/o effusion, pneumonia Technologist Note: Additional: COMPARISON: Chest x-ray from 10/07/2024. FINDINGS/IMPRESSION: There is no focal consolidation, pleural effusion, or pneumothorax.The cardiomediastinal silhouette is normal. No displaced fracturesidentified. Hardware projecting over thoracic spine. > Dictated by Otis Bocanegra MD (vice president industrial relations). > Dictated by Photography Coordinator I, Blake Plasencia MD have personally reviewed and interpreted this examination/study. > Interpreting Provider: Blake Plasencia MD on 10/10/2024 1:17 AM Anjali Coleman[employer] DOCUMENTATION ENGINEER-MODELING AGENT DIAGNOSTIC IMAGING O RDERABLES Final Result * (ABNORMAL) BLOOD GASES ABBEY + COOX PANEL (10/09/2024 4:39 PM T) Only the most recent of2 resultswithin the time period is included. pH Venous 7.41 7.32 - 7.42 pH 10/09/2024 5:04 PM [facility] pO2 Venous 34(L) 35 - 40 mmHg 10/09/2024 5:04 PM [facility] pCO2 Venous 44 40 - 50 mmHg 10/09/2024 5:04 PM [facility] HCO3 Venous 27.9 20 - 30 mmol/L 10/09/2024 5:04 PM [facility] Base Excess Venous 2.9(H) -2.0 - 2.0 mmol/L 10/09/2024 5:04 PM [facility] Oxyhemoglobin Venous 56.8 % 09/18 5:04 PM [facility] Comment:A^Absorbance Error Deoxyhemoglobin (HHB) Venous % 42.6 % 10/09/2024 5:04 PM [facility] Comment:A^Absorbance Error Methemoglobin <0.8 0.0 - 2.0 % 10/09/2024 5:04 PM [facility] Comment:A^Absorbance Error Carboxyhemoglobin 0.6 0.0 - 2.0 % 2024 5:04 PM [facility] Comment:A^Absorbance Error O2 Content Venous 7.7 Interpret within clinical context ml/dL 10/09/2024 5:04 PM [facility] Hemoglobin by COOX 9.6(L) 12.0 - 17.6 g/dL 10/09/2024 5:04 PM [facility] Comment:A^Absorbance Error O2 Saturation Venous 57(L) >=70 % 09/18 5:04 PM [facility] Comment:A^Absorbance Error FI O2 Mixed Venous 21.0 % 2024 5:04 PM [facility] Blood BLOOD SPECIMEN / Unknown Venipuncture / Unknown 10/09/2024 4:39 PM CDT 10/09/2024 4:56 PM CDT Narrative [facility] - 10/09/2024 5:04 PM CDT Carboxyhemoglobin Normal Concentration: Non-smokers: 0-2%; Smokers: 0-9%; Toxic: >20% Anjali Avelar [facility] - BLOOD GASES OR DERABLES Final Result Performing Organization Address City/[facility]/ZIP Co de Phone Number [address] [address], [facility] [phone] * PHOSPHORUS BLOOD (10/09/2024 4:39 PM CDT) Only the most recent of8 resultswithin the time period is included. Phosphorus 4.9 2.8 - 5.1 mg/dL 10/09/2024 5:29 PM CDT [facility] Blood BLOOD SPECIMEN / Unknown Venipuncture / Unknown 10/09/2024 4:39 PM CDT 10/09/2024 4:58 PM CDT Anjali [facility]velar [facility] - CHEMISTRY ORDE RABLES Final Result Performing Organization Address [facility]/ZIP Co de Phone Number [address] [address], [facility] [phone] * (ABNORMAL) URINALYSIS REFLEX MICROSCOPIC REFLEX CULTURE (10/07/2024 6:16 PM CDT) Color UA Yellow Yellow, Straw 10/07/2024 6:39 PM CDT [facility] Clarity UA Ex. Turbid(A) Clear 10/07/2024 6:39 PM CDT [facility] Glucose UA Normal Normal 10/07/2024 6:39 PM CDT [facility] Bilirubin UA Negative Negative 10/07/2024 6:39 PM CDT [facility] Ketone UA Negative Negative 10/07/2024 6:39 PM CDT [facility] Specific [place] UA 1.015 1.005 - 1.030 10/07/2024 6:39 PM [facility] Blood UA 3+(A) Negative 10/07/2024 6:39 PM [facility] pH UA 6.0 5.0 - 8.0 10/07/2024 6:39 PM [facility] Protein UA 2+(A) Negative 10/07/2024 6:39 PM [facility] Urobilinogen UA Normal Normal mg/dL 10/07/2024 6:39 PM [facility] Nitrite UA Negative Negative 10/07/2024 6:39 PM [facility] Leukocyte Esterase UA 500 MOLLY/uL(A) Negative 10/07/2024 6:39 PM [facility] RBC UA 51-100(A) 0 - 5 # /hpf 10/07/2024 6:39 PM [facility] WBC UA >100(A) 0 - 5 # /hpf 10/07/2024 6:39 PM [facility] Bacteria UA 2+(A) None Seen 10/07/2024 6:39 PM [facility] Squamous Epithelial Cells None Seen 0 - 5 /hpf 10/07/2024 6:39 PM [facility] Transitional Epithelial Cell UA 0-2(A) None Seen /HPF 10/07/2024 6:39 PM [facility] Budding Yeast Moderate(A) None seen /hpf 10/07/2024 6:39 PM [facility] Reflex Status Culture to follow 10/07/2024 6:39 PM [facility] Urine URINE SPECIMEN OBTAINED VIA [employer] [facility]IN[facility] CATHETER / Unknown Collection / Unknown 10/07/2024 6:16 PM CDT 10/07/2024 6:19 PM [facility] - 10/07/2024 6:39 PM CDT Richard Sylvester MD LAB - URINALYSIS ORDERABLES Kenna haider Result [facility] [address] [place] [address], [facility] [phone] * (ABNORMAL) CULTURE URINE (10/07/2024 6:16 PM CDT) Culture Urine 50,000-100,000 CFU/mL Klebsiella pneumoniae(A) MUSHTAQ 10/09/2024 5:54 AM CDT [facility] Urine URINE SPECIMEN OBTAINED VIA [employer] [facility]IN[facility] CATHETER / Unknown Collection / Unknown 10/07/2024 6:16 PM CDT 10/07/2024 6:19 PM CDT Narrative [facility] - 10/09/2024 5:54 AM CDT [...] LAB - MICROBIOLOGY ORDERABLES Fi nal Result [facility] [address] [place] [address], [facility] [phone] * VAS Arterial Multilevel Le (10/05/2024 12:24 PM CDT) Anatomical Region Laterality Modality Intravascular Ul trasound 10/05/2024 11:3 4 AM CDT Narrative Procedure Note Elroy Holcomb MD - 10/05/2024 us Guy Messina MD VASCULAR LAB ORDERABLES Edit ed Result - Final * (ABNORMAL) HEMOGLOBIN A1C (09/25/2024 5:06 AM CDT) Hemoglobin A1c 5.8(H) <=5.6 % 09/25/2024 8:19 AM CDT [facility] Estimated Average Glucose 120 mg/dL 09/25/2024 8:19 AM CDT [facility] Comment: HbA1c Interpretation: Normal : < 5.7% Pre-diabetes: 5.7-6.4% Diabetes: Equal to or greater than 6.5% Test results diagnostic of diabetes should be repeated for confirmation. Treatment target values recommended by ADA and other clinical organizations should be used to evaluate metabolic control in patients. Reference: [place] [employer] Association, Standards of Care in Diabetes [...] LAB - CHEMISTRY ORDERABLES F inal Result [facility] [address] [place] [address], [place] [phone] * (ABNORMAL) RENAL FUNCTION PANEL (09/24/2024 7:53 PM CDT) Only the most recent of3 resultswithin the time period is included. BUN 42(H) 7 - 26 mg/dL 09/24/2024 8:47 PM [facility] Creatinine 12.22(H) 0.71 - 1.16 mg/dL 09/24/2024 8:47 PM [facility] Sodium 136 136 - 145 mmol/L 09/24/2024 8:47 PM [facility] Potassium 3.9 3.5 - 4.5 mmol/L 09/24/2024 8:47 PM [facility] Chloride 97(L) 98 - 107 mmol/L 09/24/2024 8:47 PM [facility] CO2 24 22 - 29 mmol/L 09/24/2024 8:47 PM [facility] Glucose 93 70 - 99 mg/dL 09/24/2024 8:47 PM [facility] Albumin 1.8(L) 3.4 - 5.0 g/dL 09/24/2024 8:47 PM [facility] Calcium 8.4 8.4 - 10.2 mg/dL 09/24/2024 8:47 PM [facility] Phosphorus 7.0(H) 2.8 - 5.1 mg/dL 09/24/2024 8:47 PM [facility] Anion Gap 15 6 - 16 09/24/2024 8:47 PM [facility] BUN/Creatinine Ratio 3(L) 7 - 23 09/24/2024 8:47 PM [facility] Osmolality Calculated 292 275 - 295 mOsm/kg 09/24/2024 8:47 PM [facility] eGFR by CKD-EPI 4(L) >=90 mL/min/1.7 3 m2 09/24/2024 8:47 PM [facility] Comment:Estimated Glomerular Filtration Rate (eGFR) calculated using the CKD-EPI Creatinine Equation (2020), per the National Kidney Foundation and [place] Society of Nephrology recommendations. Blood BLOOD SPECIMEN / Unknown Lab Venipuncture / Unknown 09/24/2024 7:53 PM CDT 09/24/2024 8:15 PM CDT Guy Messina MD LAB - CHEMISTRY ORDERABLES F inal Result [address] [address], [facility] [phone] * TSH REFLEX FREE T4 (09/24/2024 12:02 PM CDT) TSH 1.567 0.350 - 4.940 uIU/mL 09/24/2024 12:57 PM CDT [facility] Blood BLOOD SPECIMEN / Unknown 09/24/2024 12:02 PM CDT 09/24/2024 12:18 PM CDT Alexis Rodrigez III, MD LAB - CHEMISTRY ORDERAB LES Final Result Performing Organization Address [facility]/ZIP Co de Phone Number [address] [address], [facility] [phone] * (ABNORMAL) VITAMIN B1 (09/24/2024 12:02 PM CDT) Vitamin B1 Whole Blood 205(H) 70 - 180 nmol/L 09/27/2024 7:16 PM CDT [employer] ([facility]) Comment: INTERPRETIVE INFORMATION: Vitamin B1, Whole Blood This assay measures the concentration of thiamine diphosphate (TDP), the primary active form of vitamin B1. Approximately 90 percent of vitamin B1 present in whole blood is TDP. Thiamine and thiamine monophosphate, which comprise the remaining 10 percent, are not measured. This test was developed and its performance characteristics determined by [employer]. It has not been cleared or approved by the [place] Food and Drug Administration. This test was performed in a CLIA certified laboratory and is intended for clinical purposes. Performed By: [employer] [address] [place] [address] [place] Master: Mk Egan MD, PhD CLIA Number: [id number] Blood BLOOD SPECIMEN / Unknown 09/24/2024 12:02 PM CDT 09/24/2024 12:11 PM CDT us Alexis Rodrigez III, MD LAB - CHEMISTRY ORDERAB LES Final Result Performing Organization Address City/[facility]/ZIP Co de Phone Number [facility]) [address] [place] [address], [facility] * (ABNORMAL) VITAMIN B12 (09/24/2024 12:02 PM CDT) Vitamin B12 1,151(H) 213 - 816 pg/mL 09/24/2024 12:57 PM CDT [facility] Blood BLOOD SPECIMEN / Unknown 09/24/2024 12:02 PM CDT 09/24/2024 12:18 PM CDT us Alexis Rodrigez III, MD LAB - CHEMISTRY ORDERAB LES Final Result Performing Organization Address [facility]/ZIP Co de Phone Number [address] [address], [place] [phone] * (ABNORMAL) TROPONIN-I HIGH SENSITIVE (09/24/2024 5:08 AM CDT) Troponin I High Sensitive 83(H) <=35 ng/L 09/24/2024 6:10 AM CDT [facility] Blood BLOOD SPECIMEN / Unknown Lab Venipuncture / Unknown 09/24/2024 5:08 AM CDT 09/24/2024 5:28 AM CDT us Jennifer Winn MD LAB - CHEMISTRY ORDERABLES F inal Result Performing Organization Address City/[facility]/ZIP Co de Phone Number [address] [address], [place] [phone] * CT Lumbar Spine Wo Contrast (09/23/2024 [...] dictated by Branden Jha MD (vice president industrial relations) 09/23/2024 5:45 PM. > Dictated by Photography Coordinator I, Jana Clark MD have personally reviewed and interpreted this examination/study. > Interpreting Provider: Jana Clark MD on 09/23/2024 6:29 PM Narrative 09/23/2024 6:29 PM CDT PROCEDURE: CT HEAD WO CONTRAST, CT LUMBAR SPINE WO CONTRAST, CT THORACIC SPINE WO CONTRAST, CT CERVICAL SPINE WO CONTRAST, DATE/TIME OF EXAM: 09/23/2024 5:32 PM, LOCATION [facility] INDICATION: W19.XXXA: Fall, initial encounter R41.82: Altered mental status, unspecified altered mental status type ADDITIONAL CLINICAL INFORMATION: Ordering Provider Reason For Exam: r/o bleed, fx (accession [id number]), r/o fx (accession [id number]), r/o fx (accession [id number]), r/o fx (accession [id number]) Technologist Note: None. Additional: 69 year old [...] DATE/TIME OF EXAM: 09/23/2024 5:32 PM, LOCATION [facility] INDICATION: W19.XXXA: Fall, initial encounter R41.82: Altered mental status, unspecified altered mental status type ADDITIONAL CLINICAL INFORMATION: Ordering Provider Reason For Exam: r/o bleed, fx (accession [id number]), r/o fx (accession [id number]), r/o fx (accession [id number]), r/o fx (accession [id number]) Technologist Note: None. Additional: 69 year old [...] dictated by Branden Jha MD (vice president industrial relations) 09/23/2024 5:45 PM. > Dictated by Photography Coordinator I, Jana Clark MD have personally reviewed [...] dictated by Branden Jha MD (vice president industrial relations) 09/23/2024 5:45 PM. > Dictated by Photography Coordinator I, Jana Clark MD have personally reviewed and interpreted this examination/study. > Interpreting Provider: Jana Clark MD on 09/23/2024 6:29 PM Narrative 09/23/2024 6:29 PM CDT PROCEDURE: CT HEAD WO CONTRAST, CT LUMBAR SPINE WO CONTRAST, CT THORACIC SPINE WO CONTRAST, CT CERVICAL SPINE WO CONTRAST, DATE/TIME OF EXAM: 09/23/2024 5:32 PM, LOCATION [facility] INDICATION: W19.XXXA: Fall, initial encounter R41.82: Altered mental status, unspecified altered mental status type ADDITIONAL CLINICAL INFORMATION: Ordering Provider Reason For Exam: r/o bleed, fx (accession [id number]), r/o fx (accession [id number]), r/o fx (accession [id number]), r/o fx (accession [id number]) Technologist Note: None. Additional: 69 year old [...] DATE/TIME OF EXAM: 09/23/2024 5:32 PM, LOCATION [facility] INDICATION: W19.XXXA: Fall, initial encounter R41.82: Altered mental status, unspecified altered mental status type ADDITIONAL CLINICAL INFORMATION: Ordering Provider Reason For Exam: r/o bleed, fx (accession [id number]), r/o fx (accession [id number]), r/o fx (accession [id number]), r/o fx (accession [id number]) Technologist Note: None. Additional: 69 year old [...] dictated by Branden Jha MD (vice president industrial relations) 09/23/2024 5:45 PM. > Dictated by Photography Coordinator I, Jana Clark MD have personally reviewed [...] dictated by Branden Jha MD (vice president industrial relations) 09/23/2024 5:45 PM. > Dictated by Photography Coordinator I, Jana Clark MD have personally reviewed and interpreted this examination/study. > Interpreting Provider: Jana Clark MD on 09/23/2024 6:29 PM Narrative 09/23/2024 6:29 PM CDT PROCEDURE: CT HEAD WO CONTRAST, CT LUMBAR SPINE WO CONTRAST, CT THORACIC SPINE WO CONTRAST, CT CERVICAL SPINE WO CONTRAST, DATE/TIME OF EXAM: 09/23/2024 5:32 PM, LOCATION [facility] INDICATION: W19.XXXA: Fall, initial encounter R41.82: Altered mental status, unspecified altered mental status type ADDITIONAL CLINICAL INFORMATION: Ordering Provider Reason For Exam: r/o bleed, fx (accession [id number]), r/o fx (accession [id number]), r/o fx (accession [id number]), r/o fx (accession [id number]) Technologist Note: None. Additional: 69 year old [...] DATE/TIME OF EXAM: 09/23/2024 5:32 PM, LOCATION [facility] INDICATION: W19.XXXA: Fall, initial encounter R41.82: Altered mental status, unspecified altered mental status type ADDITIONAL CLINICAL INFORMATION: Ordering Provider Reason For Exam: r/o bleed, fx (accession [id number]), r/o fx (accession [id number]), r/o fx (accession [id number]), r/o fx (accession [id number]) Technologist Note: None. Additional: 69 year old [...] dictated by Branden Jha MD (vice president industrial relations) 09/23/2024 5:45 PM. > Dictated by Photography Coordinator I, Jana Clark MD have personally reviewed [...] dictated by Branden Jha MD, (vice president industrial relations). > Dictated by Photography Coordinator I, Nicole Bernabe MD have personally reviewed and interpreted this examination/study. > Interpreting Provider: Nicole Bernabe MD on 09/24/2024 9:17 AM Narrative 09/24/2024 9:17 AM CDT PROCEDURE: XR FOOT LEFT 3VW OR MORE, DATE/TIME OF EXAM: 09/23/2024 5:34 PM, LOCATION [facility] INDICATION: W19.XXXA: Fall, initial encounter ADDITIONAL [...] MORE, DATE/TIME OF EXAM: 09/23/2024 5:34PM, LOCATION [facility] INDICATION: W19.XXXA: Fall, initial encounter ADDITIONAL [...] dictated by Branden Jha MD, (vice president industrial relations). > Dictated by Photography Coordinator I, Nicole Bernabe MD have personally reviewed and interpreted this examination/study. > Interpreting Provider: Nicole Bernabe MD on 09/24/2024 9:17 AM us Moon Lewis PA-C DIAGNOSTIC IMAGING ORDERABLES F inal Result * (ABNORMAL) C-REACTIVE PROTEIN (09/23/2024 4:52 PM CDT) Only the most recent of2 resultswithin the time period is included. C-Reactive Protein 1.6(H) <=0.5 mg/dL 09/23/2024 5:42 PM CDT [facility] Blood BLOOD SPECIMEN / Unknown Venipuncture / Unknown 09/23/2024 4:52 PM CDT 09/23/2024 4:56 PM CDT us Moon Lewis PA-C LAB - CHEMISTRY ORDERABLES Kenna l Result Performing Organization Address City/[facility]/ZIP Co de Phone Number [address] [address], [facility] [phone] * (ABNORMAL) ERYTHROCYTE SEDIMENTATION RATE (09/23/2024 4:52 PM CDT) Only the most recent of2 resultswithin the time period is included. Erythrocyte Sedimentation Rate Westergren 116(H) 0 - 20 MM/HR 09/23/2024 5:21 PM CDT [facility] Blood BLOOD SPECIMEN / Unknown Venipuncture / Unknown 09/23/2024 4:52 PM CDT 09/23/2024 5:05 PM CDT Moon Lewis PA-C LAB - HEMATOLOGY ORDERABLES Fin al Result Performing Organization Address [facility]/ZIP Co de Phone Number [address] [address], [place] [phone] * (ABNORMAL) DIFFERENTIAL MANUAL (09/23/2024 4:52 PM CDT) Only the most recent of3 resultswithin the time period is included. Neutrophil % 78(H) 41 - 74 % 09/23/2024 5:33 PM CDT [facility] Lymphocyte % 10(L) 17 - 47 % 09/23/2024 5:33 PM CDT [facility] Monocyte % 10 3 - 11 % 09/23/2024 5:33 PM CDT [facility] Eosinophil % 1 0 - 7 % 09/23/2024 5:33 PM CDT [facility] Metamyelocyte % 1(H) 0% % 5:33 PM CDT [facility] Neutrophil Absolute 8.66(H) 1.60 - 7.50 x10E9/L 09/23/2024 5:33 PM CDT [facility] Lymphocyte Absolute 1.11 1.00 - 4.40 x10E9/L 09/23/2024 5:33 PM CDT [facility] Monocyte Absolute 1.11(H) 0.15 - 1.00 x10E9/L 09/23/2024 5:33 PM [facility] Eosinophil Absolute 0.11 0.00 - 0.60 x10E9/L 09/23/2024 5:33 PM [facility] RBC Morphology REVIEWED 09/23/2024 5:33 PM [facility] Microcytosis MODERATE(A) (none) 09/23/2024 5:33 PM [facility] Blood BLOOD SPECIMEN / Unknown Venipuncture / Unknown 09/23/2024 4:52 PM CDT 09/23/2024 5:05 PM CDT Moon Lewis PA-C LAB - HEMATOLOGY ORDERABLES Fin al Result [facility] [address] [place] [address], [facility] [phone] * (ABNORMAL) CBC W/O DIFFERENTIAL (09/16/2024 1:01 AM CDT) Only the most recent of9 resultswithin the time period is included. WBC 9.3 4.0 - 10.7 x10E9/L 09/16/2024 1:43 AM [facility] RBC Count 3.37(L) 4.30 - 5.80 x10E12/L 09/16/2024 1:43 AM [facility] Hemoglobin 9.5(L) 13.3 - 17.5 g/dL 09/16/2024 1:43 AM [facility] Hematocrit 28.3(L) 38.7 - 51.1 % 09/16/2024 1:43 AM [facility] MCV 84.0 80.0 - 98.0 fL 09/16/2024 1:43 AM [facility] MCH 28.2 26.7 - 33.6 pg 09/16/2024 1:43 AM [facility] MCHC 33.6 31.7 - 36.3 g/dL 09/16/2024 1:43 AM [facility] RDW-CV 15.7(H) 11.3 - 14.8 % 09/16/2024 1:43 AM CDT [facility] Platelet Count 205 150 - 420 x10E9/L 09/16/2024 1:43 AM CDT [facility] MPV 10.3 7.8 - 11.4 fL 09/16/2024 1:43 AM CDT [facility] Blood BLOOD SPECIMEN / Unknown Lab Venipuncture / Unknown 09/16/2024 1:01 AM CDT 09/16/2024 1:40 AM CDT us Alexis Rodrigez III, MD LAB - HEMATOLOGY ORDERA BLES Final Result [address] [address], [place] [phone] * VANCOMYCIN LEVEL RANDOM (09/15/2024 4:10 PM CDT) Only the most recent of3 resultswithin the time period is included. Vancomycin Random 31.2 Therapeutic Ranges not established for random specimens ug/mL 09/15/2024 6:00 PM CDT [facility] Blood BLOOD SPECIMEN / Unknown Lab Venipuncture / Unknown 09/15/2024 4:10 PM CDT 09/15/2024 4:51 PM CDT Narrative [facility] - 09/15/2024 6:00 PM CDT See institution protocol. us Aureliano Pierce MD LAB - CHEMISTRY ORDERAB LES Final Result [address] [address], [place] [phone] * LACTIC ACID BLOOD (09/14/2024 3:32 PM CDT) Only the most recent of4 resultswithin the time period is included. Lactic Acid-Stat 2.0 <=2.0 mmol/L 09/14/2024 4:17 PM CDT [facility] Blood BLOOD SPECIMEN / Unknown Lab Venipuncture / Unknown 09/14/2024 3:32 PM CDT 09/14/2024 3:51 PM CDT us Alexis Rodrigez III, MD LAB - CHEMISTRY ORDERAB LES Final Result Performing Organization Address [facility] Co de Phone Number [address] [address], [facility] [phone] * (ABNORMAL) HGB HCT PANEL (09/14/2024 1:24 PM CDT) Only the most recent of2 resultswithin the time period is included. Hemoglobin 8.7(L) 13.3 - 17.5 g/dL 09/14/2024 1:41 PM CDT [facility] Hematocrit 25.6(L) 38.7 - 51.1 % 09/14/2024 1:41 PM CDT [facility] Blood BLOOD SPECIMEN / Unknown Venipuncture / Unknown 09/14/2024 1:24 PM CDT 09/14/2024 1:30 PM CDT us Alexis Rodrigez III, MD LAB - HEMATOLOGY ORDERA BLES Final Result Performing Organization Address [facility] Co de Phone Number [address] [address], [facility] [phone] * PATHOLOGY TISSUE (09/14/2024 11:45 AM CDT) Case Report Surgical Pathology Report Case: [id number] Authorizing Provider: Elroy Holcomb MD Collected: 09/14/2024 11:45 AM Ordering Location: [facility] Received: 09/14/2024 12:47 PM Pathologist: Charmaine Myrick MD Specimen: Toe, Left, Left Great Toe 09/16/2024 11:40 AM CDT [facility] Final Diagnosis Toe, left great, amputation (A): - Skin ulceration and necrosis - Acute osteomyelitis - Bone margin negative for acute inflammation - Skin and soft tissue margin appears viable 09/16/2024 11:40 AM CDT [facility] at 1140 CDT Microscopic Description and Comment Microscopic examination substantiates the diagnosis. 09/16/2024 11:40 AM [facility] Clinical History The patient is a 69-year-old man with first toe dry gangrene and history of PAD. 09/16/2024 11:40 AM [facility] Gross Description The requisition [...] hemorrhage. There are no additional gross lesions. Management Trainee Marketing sections are submitted as follows: A1-skin and soft tissue to resection margin, medial and dorsal surfaces A2-bony resection margin, decalcified A3-partial proximal cross-section with surrounding mummification, decalcified IKD 09/16/2024 11:40 AM [facility] Pathologist Location at [facility] 09/16/2024 11:40 AM [facility] Disclaimer The performance characteristics [...] the attending (teaching) pathologist. 09/16/2024 11:40 AM [facility] Embedded Images 09/16/2024 11:40 AM [facility] Amputation, Traumatic (Gross Only) (Toe, Left) 09/14/2024 11:45 AM CDT 09/14/2024 12:47 PM CDT Comment:Pre-op diagnosis: Toe gangrene (HCC) [I96] Elroy Holcomb MD LAB - PATHOLOGY/CYTOLOGY O RDERABLES Final Result [facility] Janneth[address] [phone] * Peripheral Nerve Block (09/14/2024 10:38 AM [...] fungus isolated MUSHTAQ 10/11/2024 8:05 AM CDT [facility] Fungus Stain No yeast or hyphae seen 10/11/2024 8:05 AM CDT [facility] Microbiology PERITONEAL DIALYSATE SPECIMEN / Unknown Collection / Unknown 09/13/2024 8:08 PM CDT 09/13/2024 8:10 PM CDT us Alexis Rodrigez III, MD LAB - MICROBIOLOGY PK ZENG Final Result [facility] [address] [place] [address], [facility] [phone] * DIFFERENTIAL MANUAL FLUID (09/13/2024 8:08 PM CDT) Fluid Source Peritoneal 09/13/2024 9:03 PM [facility] Fl[facility] Total Cell Count 100 x10E6/L 09/13/2024 9:03 PM CDT [facility] Neutrophils Fluid Percent 11 % 09/13/2024 9:03 PM T [facility] Lymphocytes Fluid Percent 6 % 09/13/2024 9:03 PM [facility] Macrophages Fluid Percent 79 % 09/13/2024 9:03 PM T [facility] Mesothelial Cells Fluid Percent 4 % 09/13/2024 9:03 PM T [facility] Fluid PERITONEAL FLUID / Unknown Collection / Unknown 09/13/2024 8:08 PM CDT 09/13/2024 8:10 PM CDT Narrative [facility] - 09/13/2024 9:03 PM CDT No reference ranges established for body fluid differential cell counts. The test results must be integrated into the clinical context for interpretation. Alexis Rodrigez III, MD LAB - BODY FLUID ORDERA BLES Final Result [facility] [address] [place] [address], [facility] [phone] * CULTURE FLUID+GRAM STAIN (09/13/2024 8:08 PM CDT) Culture No growth MUSHT[facility] 09/17/2024 12:38 AM CDT [facility] Gram Stain Light Polymorphonuclear cells 09/17/2024 12:38 AM CDT [facility] Gram Stain No organisms seen 025 12:38 AM CDT [facility] Other PERITONEAL DIALYSATE SPECIMEN / Unknown Collection / Unknown 09/13/2024 8:08 PM CDT 09/13/2024 8:10 PM CDT Alexis Rodrigez III, MD LAB - MICROBIOLOGY PK ZENG Final Result Performing Organization Address City/[facility]/ZIP Co de Phone Number [facility] [address] [place] [place] [id number], [facility] [phone] * CULTURE ANAEROBE (09/13/2024 8:08 PM CDT) Culture No anaerobic organisms isolated MUSHTAQ 09/19/2024 8:26 AM CDT [facility] MICRO[facility] Microbiology PERITONEAL DIALYSATE SPECIMEN / Unknown Collection / Unknown 09/13/2024 8:08 PM CDT 09/13/2024 8:11 PM CDT Alexis Rodrigez III, MD LAB - MICROBIOLOGY PK ZENG Final Result Performing Organization Address City/[facility]/ZIP Co de Phone Number [facility]CRO[facility] [address] [place] [address], [facility] [phone] * CELL COUNT W DIFFERENTIAL FLUID (09/13/2024 8:08 PM CDT) Fluid Source Peritoneal 09/13/2024 9:03 PM CDT [facility] Fluid Appearance CLEAR 09/13/2024 9:03 PM CDT [facility] Fluid Color YELLOW 09/13/2024 9:03 PM CDT [facility] Total Nucleated Cells Fluid 279 Reference Range Not Established x10E6/L 09/13/2024 9:03 PM CDT [facility] RBC Count Fluid <2,000 Reference Range Not Established x10E6/L 09/13/2024 9:03 PM CDT [facility] Fluid PERITONEAL FLUID / Unknown Collection / Unknown 09/13/2024 8:08 PM CDT 09/13/2024 8:10 PM CDT Narrative [facility] - 09/13/2024 9:03 PM CDT No reference ranges established for body fluid cell counts. Any reference ranges provided are derived from published literature. The test results must be integrated into the clinical context for interpretation. us Alexis Rodrigez III, MD LAB - BODY FLUID ORDERA BLES Final Result [address] [address], [facility] [phone] * VAS Bilateral Venous Duplex Le (09/13/2024 4:34 PM CDT) Anatomical Region Laterality Modality Lower Extremity Ultrasound 09/13/2024 4:18 PM CDT Narrative Procedure Note Lalit Castanon MD - 09/13/2024 us Alexis Rodrigez III, MD VASCULAR LAB ORDERABLES Edited Result - Final * SARS-COV-2 (COVID-19) RAPID (09/13/2024 6:02 AM CDT) COVID-19 PCR Not detected Not detected 09/14/19 25 6:36 AM CDT [facility] Microbiology SPECIMEN FROM NASOPHARYNGEAL STRUCTURE / Unknown Collection / Unknown 09/13/2024 6:02 AM CDT 09/13/2024 6:04 AM CDT Narrative [facility] - 09/13/2024 6:36 AM CDT The [...] ORDERABLE S Final Result Performing Organization Address City/State/[facility] Co de Phone Number [facility] [address] [place] [address], [facility] [phone] * TRANSFUSE RED BLOOD CELL LEUKOREDUCED UNIT(S) [...] 08/04/2024. > Dictated by Sera Chowdhury Dr, (vice president industrial relations). Terry Leigh MD have personally reviewed and interpreted this examination/study. > Interpreting Provider: Terry Ramos MD on 09/13/2024 9:42 AM Narrative 09/13/2024 9:42 AM CDT PROCEDURE: CT ANGIO AORTA FOR DISSECTION, DATE/TIME OF EXAM: 09/13/2024 12:28 AM, LOCATION [facility] INDICATION: R10.9: Abdominal pain, unspecified abdominal [...] DATE/TIME OF EXAM: 09/13/2024 12:28 AM, LOCATION [facility] INDICATION: R10.9: Abdominal pain, unspecified abdominal [...] by Sera Chowdhury Dr, MD (vice president industrial relations). ITerry MD have personally reviewed and interpreted this examination/study. > Interpreting Provider: Terry Ramos MD on 09/13/2024 9:42 AM Yuriy Lopez MD CT ORDERABLES Final Result * PREPARE (CROSSMATCH) RBC UNIT(S), 1 Units (09/12/2024 11:30 PM CDT) Unit Description AS1 LR PRBC [facility] Unit ABO O [facility] Unit Rh NEG [facility] Product Number R43 [facility] B LO[facility] Unit Donor # [id number] [facility] Unit Status transfused [facility] B[facility] OD B[facility] Product Code [id number] [facility] Blood Type Barcode 9500 [facility] Expiration Date [id number] S BLOOD BANK LAB Blood Bank BLOOD SPECIMEN / Unknown 09/12/2024 11:30 PM CDT 09/12/2024 11:37 PM CDT Yuriy Lopez MD LAB - BLOOD BANK ORDERABLES Final Result [facility] [address] [place] [address], [facility] [phone] * TYPE + SCREEN PANEL (09/12/2024 11:30 PM CDT) Antibody Screen NEG 12:16 AM CDT [facility] ABO Rh O NEG 09/13/2024 12:16 AM CDT [facility] Blood Bank BLOOD SPECIMEN / Unknown Venipuncture / Unknown 09/12/2024 11:30 PM CDT 09/12/2024 11:37 PM CDT Result [facility] Yuriy Lopez MD LAB - BLOOD BANK ORDERABLES Final Result [facility] [address] [place] [address], [facility] [phone] * CULTURE BLOOD (09/12/2024 10:00 PM CDT) Only the most recent of4 resultswithin the time period is included. Culture No growth day 5 MUSHTAQ 09/18/2024 1:30 AM CDT [facility] Blood PERIPHERAL BLOOD / Unknown Venipuncture / Unknown 09/12/2024 10:00 PM CDT 09/12/2024 10:21 PM CDT Result [facility] Yuriy Lopez MD LAB - MICROBIOLOGY ORDERABLE S Final Result Performing Organization Address City/[facility]/ZIP Co de Phone Number [facility] [address] [place] [address], [facility] [phone] * VAS Bilateral Venous Mapping (09/07/2024 2:24 PM CDT) Anatomical Region Laterality Modality Upper Extremity, Lower Extremity Ultrasound 09/07/2024 1:53 PM CDT Narrative Procedure Note Elroy Holcomb MD - 09/08/2024 Result [facility] Allen Wing MD VASCULAR LAB ORDERABLES Edite [...] thickening. Report dictated by Freddie Durham MD, (Photography Coordinator). I, Junior Hurley MD have personally reviewed [...] thickening. Report dictated by Freddie Durham MD, (Photography Coordinator). I, Junior Hurley MD have personally reviewed and interpreted this examination/study. > Interpreting Provider: Junior Hurley MD on 56:26 AM us Charmaine Khalil MD CT ORDERABLES Final Result * (ABNORMAL) POTASSIUM WHOLE BLD (09/01/2024 3:54 PM CDT) Potassium Whole Blood 3.1(L) 3.5 - 5.5 mmol/L 09/01/2024 4:05 PM CDT [facility] Blood WHOLE BLOOD SPECIMEN / Unknown Venipuncture / Unknown 09/01/2024 3:54 PM CDT 09/01/2024 3:57 PM CDT Jaqueline Crews DOCUMENTATION ENGINEER-MODELING AGENT LAB - CHEMISTRY ORDERABL ES Final Result [address] [address], [facility] [phone] * CCL STAGED PERC CORONARY INTERVENTION, CCL [...] continuing DAPT Cardiology clinic f/u Jaqueline Crews DOCUMENTATION ENGINEER-MODELING AGENT CV CARDIAC CATH CUPID ID OCS Final Result * (ABNORMAL) IRON + TRANSFERRIN PANEL (08/19/2024 1:41 AM CDT) [facility] Iron 40(L) 50 - 175 ug/dL 08/19/2024 2:17 AM CDT [facility] Transferrin 116(L) 174 - 382 mg/dL 08/19/2024 2:17 AM CDT [facility] Transferrin Saturation % 28 16 - 50 % 08/19/2024 2:17 AM [facility] Calculated 145(L) 240 - 450 ug/dL 08/19/2024 2:17 AM [facility] Blood BLOOD SPECIMEN / Unknown Lab Venipuncture / Unknown 08/19/2024 1:41 AM CDT 08/19/2024 2:01 AM CDT us Hannah Goodman MD LAB - CHEMISTRY ORDERABLES F inal Result Performing Organization Address City/[facility]/ZIP Co de Phone Number [address] [address], [facility] [phone] * (ABNORMAL) FERRITIN (08/19/2024 1:41 AM CDT) Ferritin 560(H) 22 - 275 ng/mL 08/19/2024 2:35 AM CDT [facility] Blood BLOOD SPECIMEN / Unknown Lab Venipuncture / Unknown 08/19/2024 1:41 AM CDT 08/19/2024 2:01 AM CDT us Hannah Goodman MD LAB - CHEMISTRY ORDERABLES F inal Result Performing Organization Address [facility] de Phone Number [address] [address], [facility] [phone] * VITAMIN D 25-HYDROXY (08/19/2024 1:23 AM CDT) Vitamin D, 25 Hydroxy 36.2 30.0 - 80.0 ng/mL 08/19/2024 2:24 AM CDT [facility] Comment: The recommendations for [...] LAB - CHEMISTRY ORDERABLES F inal Result [facility] [address] [place] [address], [place] [phone] * HEPATITIS C ANTIBODY (06/16/2024 4:15 PM CDT) Hepatitis C Antibody Non-react sylvie Non-reac tive 06/16/2024 5:50 PM CDT [facility] Comment:Hepatitis C Antibody screen [...] LAB - CHEMISTRY ORDERABLES Fi nal Result [facility] [address] [place] [address], [place] [phone] from Last 3 Months or Most Recently Relevant to Health Maintenance Insurance [employer] MEDICARE ADV MEDICARE ADV * Guarantor: GRACE INTERIANO Account Type Relation to Patient Date of Phone Billing Address Personal/Family [address] [place], [place] [phone] * Guarantor: GRACE INTERIANO Account Type Relation to Patient Date of Phone Billing Address Personal/Family [address] [place] [address] Advance Directives * Full Code (Latest Code [...] 3:16 PM 08/19/2024 4:36 PM Care Teams Lean Sensei Relationship Specialty Start Date End Date Jeff Strickland MD [address] [place] [address] PCP - General 03/05/18 [place] [address] [address] Orthopedic Surgery 03/28/17
--- OUTSIDE RECORDS SUMMARY | 2024-11-19 01:14 | XMS_ITS | Encounter Summary ---
Author Organization [facility] Address [facility] [place] [address] Care Team Providers Care Psychiatric Orderly Name Role Phone Deandre Bojorquez MD Unavailable [phone] Jeff Strickland MD Primary Care Provider [phone] Encounter Details Date Type Department Care Team (Late st Contact Info) Description 05/29/2023 Lab Requisition [facility] MAIN LAB [address] [place] [phone] Alan Davenport MD [facility] [place] [address] Social History Tobacco Use Types Packs/Day Years Used Date Smoking Tobacco: Never Smokeless Tobacco: Never Alcohol Use Standard Drinks/Week Comments Not Currently 0 (1 standard drink = 0.6 oz pur e alcohol) socially in past Sex and Gender Information Value Date Recorded Sex Assigned at Male 07/02/2021 2:37 PM CDT Legal 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 Gender Identity Male 07/02/2021 2:37 PM [...] 10:00 AM CDT Appointment H IVR [address] [place] [address] Elroy Holcomb MD [address] [place] [address] 2L [place] [address] 11/24/2024 9:05 AM CDT Hospital Encounter [facility] RITO OP [address] [place] [address] Elroy Holcomb MD [address] [place] [address] 2[address] [place] [address] Surgery General 11/24/2024 9:05 AM CDT - 11/24/2024 11:20 AM CDT Surgery [facility] RITO OP [address] [place] [address] Elroy Holcomb MD [address] [place] [address] 2L [place] [address] Bilateral first toe debridement 12/06/2024 10:40 AM CDT Office Visit [facility] - Endocrinology [address] [place] [address], [place] [address] Marbin Flores MD [address] [facility] DIV [place] [address] Niraj Turner MD 1225 [facility] 2L [place] [address] 2025 1:00 PM RAIL TRANSPORTATION OPERATOR Office Visit [facility] - Neurology [address] [place] [address], [place] [address] Becky Wilson MD [address] [place] [phone] Scheduled Procedures Name Priority Associated Diagnoses Date/Ti [...] Hold HLA Specimen 05/29/2023 10:30 AM CDT [facility]) Comment:The Hold HLA specime n has been received into the lab and will be held for 5 years at 4 degrees. Blood BLOOD SPECIMEN / Unknown 05/21/2023 9:24 AM CDT 05/29/2023 9:24 AM CDT Alan Davenport MD LAB - BLOOD BANK ORDERABLES F inal Result [facility] ([facility]) [address] documented in this encounter Visit Diagnoses Not on filedocumented in this encounter Additional Health Concerns Infection Onset Date Last Indicated Resolved Time COVID-19 Under Investigation 09/13/2024 09/13/2024 09/13/2024 6:36 AM CDT documented as of this encounter Care Teams Psychiatric Orderly Relationship Specialty Start Date End Date Jeff Strickland MD [address] [place] [address] PCP - General 03/05/18 [place] [address] [place] [address] Orthopedic Surgery 03/28/17 documented as of this encounter
--- OUTSIDE RECORDS SUMMARY | 2024-11-19 01:14 | XMS_ITS | Clinical Summary ---
Author Organization [facility] Address [address] [place] [address] Care Team Providers Care Rn Primary Care Name Role Phone Jeff Strickland MD Primary [...] mouth daily. Active nystatin-triamc inolone (MYCOLOG II) 984966-7.1 UNIT/GM-% Cream 5 Active ondansetron (ZOFRAN-ODT) 4 [...] 10/29/2024 Telephone [facility] - Cardiology [facility] [address] [place] [address] Suly mSith APRN, EXTRACTOR PULLER 10/15/2024 Telephone [facility] Cardiology [facility] [address] [place] [address] Hannah Goodman MD 10/14/2024 2:40 PM CDT Clinical Support [facility] Cardiology [facility] #2 [facility] [place] [phone] NurseAsim Cardiology Dressing change (Primary Dx) Discharge [...] st Contact Info) Description 04/11/2025 11:30 AM GEL COATER Office Visit [facility] - [facility]iology - [place] [address] [place] [address] He Maylin, DO 2 [facility] [address] [address] Health Maintenance Due Date Last Done Comments [...] topic Insurance MEDICARE C [employer] Care Teams Rn Primary Care Relationship Specialty Start Date End Date Jeff Strickland MD [address] [place] [address] PCP - General Family Medicine 10/14/24
--- OUTSIDE RECORDS SUMMARY | 2024-11-19 01:14 | XMS_ITS | Encounter Summary ---
Author Organization [facility] Healthcare Address [address] [place] [address] Care Team Providers Care Newspaper Copy Editor Name Role Phone Jeff Strickland MD Primary Care Provider Chan Nicholas MD Unavailable [phone] Alan Mccall MD Unavailable [phone] Pepito Haro MD PhD Unavailable [phone] Solange Guido MD Unavailable [phone] Encounter Details Date Type Department Care Team (Late st Contact Info) Description 07/28/2024 Orders Only [facility] Health Information Management [address] [place] [address] Scanning, Provider Social History Tobacco Use Types Packs/Day Years Used Date Smoking Tobacco: Never Smokeless Tobacco: Never Alcohol Use Standard Drinks/Week Comments Yes 0 (1 standard drink = 0.6 oz pur e alcohol) rarely [facility] Utilities Answer Date Recorded In the past 12 months has [employer] electric, gas, oil, or water company threatened [...] often do you attend chur ch or protestant services? 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 [address] [place] [phone] PCP - General Family Medicine 04/02/18 Chan Nicholas MD [facility] [address] [address] Consulting Physician Gastroenterology 11/24/18 Alan Mccall MD [facility] [address] [address] Referring Physician Nephrology 11/24/18 Pepito Haro MD PhD [address] [place] [address] Consulting Physician Neurosurgery 12/03/22 Solange Guido MD [address] [facility] [address] [place] [address] Referring Physician Cardiovascular Disease 07/23/23 documented as of this encounter
--- OUTSIDE RECORDS SUMMARY | 2024-11-19 01:14 | XMS_ITS | Encounter Summary ---
Author Organization [facility] Address [address] [place] [address] Care Team Providers Care Asian Art Curator Name Role Phone Deandre Bojorquez MD Unavailable [phone] Jeff Strickland MD Primary Care Provider [phone] Encounter Details Date Type Department Care Team (Late st Contact Info) Description 09/10/2024 Telephone [facility] - Centralized Scheduling [facility] [place] [address] Niraj Turner MD [facility] [place] [address] Social History Tobacco Use Types Packs/Day Years [...] and heating? Not hard at all 09/14/2024 [facility] Occupat [facility] - Occupational Stress Questionnaire Answer Date Recorded [...] living in a longterm (including now)? No 09/14/2024 Sex and Gender Information Value Date Recorded Sex Assigned at Male 07/02/2021 2:37 PM CDT Legal Sex Male 10:14 PM SENIOR SAFETY SUPPORT MANAGER Gender Identity Male 07/02/2021 2:37 PM [...] Info) Description 11/23/2024 10:00 AM CDT Appointment [facility] IVR [address] [place] [address] Elroy Holcomb MD [facility]5 [facility] 2L [place] [address] 11/24/2024 9:05 AM CDT Hospital Encounter [facility] RITO OP [address] [place] [address] Elroy Holcomb MD [address] [place] [address] 2L [place] [address] Surgery General 11/24/2024 9:05 AM CDT - 11/24/2024 11:20 AM CDT Surgery [facility] RITO OP [address] [place] [address] Elroy Holcomb MD [facility]5 [facility] 2L [place] [address] Bilateral first toe debridement 12/06/2024 10:40 AM CDT Office Visit [facility] - Endocrinology [address] [place] [address], [place] [address] Marbin Flores MD [address] [facility] DIV [place] [address] Niraj Turner MD [address] [place] [address] 2L [place] [address] 2025 1:00 PM SENIOR SAFETY SUPPORT MANAGER Office Visit [facility] - Neurology [address] [place] [phone] Becky Wilson MD [address] [place] [phone] Scheduled Procedures Name Priority Associated Diagnoses Date/Ti [...] documented as of this encounter Care Teams Asian Art Curator Relationship Specialty Start Date End Date Jeff Strickland MD [address] [place] [address] PCP - General 03/05/18 [place] [address] [address] Orthopedic Surgery 03/28/17 documented as of this encounter
--- OUTSIDE RECORDS SUMMARY | 2024-11-19 01:14 | XMS_ITS | Encounter Summary ---
Author Organization [facility] Address [facility] [place] [address] Care Team Providers Care Fireman Helper Name Role Phone Deandre Bojorquez MD Unavailable [phone] Jeff Strickland MD Primary Care Provider Encounter Details Date Type Department Care Team (Late st Contact Info) Description 06/25/2024 Lab Requisition [facility] MAIN LAB [address] [place] [phone] Alan Davenport MD [facility]1 [facility] OF [place] [address] Social History Tobacco Use Types Packs/Day Years Used Date Smoking Tobacco: Never Smokeless Tobacco: Never Alcohol Use Standard Drinks/Week Comments Not Currently 0 (1 standard drink = 0.6 oz pur e alcohol) socially in past Sex and Gender Information Value Date Recorded Sex Assigned at Male 07/02/2021 2:37 PM CDT Legal Sex Male 10:14 PM 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 QUANTITY SURVEYOR Gender Identity Male 07/02/2021 2:37 [...] 10:00 AM CDT Appointment H IVR [address] [place] [address] Elroy Holcomb MD [address] [place] [address] 2L [place] [address] 11/24/2024 9:05 AM CDT Hospital Encounter [facility] RITO OP [address] [place] [address] Elroy Holcomb MD [address] [place] [address] 2L [place] [address] Surgery General 11/24/2024 9:05 AM CDT - 11/24/2024 11:20 AM CDT Surgery [facility] RITO OP [address] [place] [address] Elroy Holcomb MD [address] [place] [address] 2L [place] [address] Bilateral first toe debridement 12/06/2024 10:40 AM CDT Office Visit [facility] - Endocrinology [address] [place] [address], [place] [address] Marbin Flores MD [address]01 [facility] DIV OF [place] [address] Niraj Turner MD 1225 [facility] 2L [place] [address] 2025 1:00 PM SENIOR QUANTITY SURVEYOR Office Visit [facility] - Neurology [address] [place] [address], [place] [address] Becky Wilson MD [address] [place] [phone] Scheduled Procedures Name Priority Associated Diagnoses Date/Ti [...] [facility] [address] documented in this encounter Visit Diagnoses Not on filedocumented in this encounter Additional Health Concerns Infection Onset Date Last Indicated Resolved Time COVID-19 Under Investigation 09/13/2024 09/13/2024 09/13/2024 6:36 AM CDT documented as of this encounter Care Teams Fireman Helper Relationship Specialty Start Date End Date Jeff Strickland MD [address] [place] [address] PCP - General 03/05/18 [place] [address] [place] [address] Orthopedic Surgery 03/28/17 documented as of this encounter
--- OUTSIDE RECORDS SUMMARY | 2024-11-19 01:14 | XMS_ITS | Encounter Summary ---
Author Organization [facility] Address [facility] [place] [address] Care Team Providers Care Radio Repairer Name Role Phone Deandre Bojorquez MD Unavailable [phone] Jeff Strickland MD Primary Care Provider [phone] Encounter Details Date Type Department Care Team (Late st Contact Info) Description 09/30/2023 Lab Requisition [facility] [address] [place] [phone] Alan Davenport MD 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 Gender Identity Male 07/02/2021 2:37 PM [...] 10:00 AM CDT Appointment H IVR [address] [place] [address] Elroy Holcomb MD [address] [place] [address] 2L [place] [address] 11/24/2024 9:05 AM CDT Hospital Encounter [facility] R[facility] OP [address] [place] [address] Elroy Holcomb MD [address] [place] [address] 2L [place] [address] Surgery General 11/24/2024 9:05 AM CDT - 11/24/2024 11:20 AM CDT Surgery [facility] [address] [place] [address] Elroy Holcomb MD [address] [place] [address] 2L [place] [address] Bilateral first toe debridement 12/06/2024 10:40 AM CDT Office Visit [facility] - Endocrinology [address] [place] [address], [place] [address] Marbin Flores MD 1201 [facility] DIV [place] [address] Niraj Turner MD 1225 [facility] 2L [place] [address] 2025 1:00 PM RETURNED GOODS REPAIRER Office Visit [facility] - Neurology [address] [place] [address], [place] [address] Becky Wilson MD [address] [place] [phone] Scheduled Procedures Name Priority Associated Diagnoses Date/Ti [...] Hold HLA Specimen 09/30/2023 4:32 PM CDT [facility] ([facility]) Comment:The Hold HLA specime n has been received into the lab and will be held for 5 years at 4 degrees. Blood BLOOD SPECIMEN / Unknown 09/24/2023 3:27 PM CDT 09/30/2023 3:27 PM CDT Alan Davenport MD LAB - BLOOD BANK ORDERABLES F inal Result [facility] ([facility]) [address] documented in this encounter Visit Diagnoses Not on filedocumented in this encounter Additional Health Concerns Infection Onset Date Last Indicated Resolved Time COVID-19 Under Investigation 09/13/2024 09/13/2024 09/13/2024 6:36 AM CDT documented as of this encounter Care Teams Radio Repairer Relationship Specialty Start Date End Date Jeff Strickland MD [address] [place] [address] PCP - General 03/05/18 [place] [address] [place] [address] Orthopedic Surgery 03/28/17 documented as of this encounter
--- OUTSIDE RECORDS SUMMARY | 2024-11-19 01:14 | XMS_ITS | Encounter Summary ---
Author Organization [facility] Address [facility]3 [place] [address] Care Team Providers Care Finisher Wallboard And Plasterboard Name Role Phone Deandre Bojorquez MD Unavailable [phone] Jeff Strickland MD Primary Care Provider [phone] Reason for Visit * Reason Onset Date Comments Surgery Rescheduled 11/18/2024 Encounter Details Date Type Department Care Team (Late st Contact Info) Description 11/18/2024 Telephone [facility] - Vascular Surgery [address] [place] [address], [place] [phone] Elroy Holcomb MD [address] [place] [address] [place] [address] Surgery Rescheduled Social History Tobacco Use Types [...] CDT Legal Sex Male 10:14 PM VIDEO PRODUCTION SPECIALIST Gender Identity Male 07/02/2021 2:37 PM [...] Info) Description 11/23/2024 10:00 AM CDT Appointment [facility] IVR [address] [place] [phone] Elroy Holcomb MD [address] [place] [address] 2L [place] [address] 11/24/2024 9:05 AM CDT Hospital Encounter [facility] RITO OP [address] [place] [phone] Elroy Holcomb MD [address] [place] [address] 2L [place] [address] Surgery General 11/24/2024 9:05 AM CDT - 11/24/2024 11:20 AM CDT Surgery [facility] OP [address] [place] [phone] Elroy Holcomb MD [facility]5 [facility] 2L [place] [address] Bilateral first toe debridement 12/06/2024 10:40 AM CDT Office [facility] Endocrinology [address] [place] [address], [place] [phone] Marbin Flores MD 1201 [facility] DIV [place] [address] Niraj Turner MD [address] [place] [address] 2L [place] [address] 2025 1:00 PM VIDEO PRODUCTION SPECIALIST Office Visit [facility] Physician Group - Neurology [address] [place] [address], [place] [address] Becky Wilson MD [address] [place] [phone] Scheduled Procedures Name Priority Associated Diagnoses Date/Ti me IRRIGATION/DEBRIDEMENT WOUND/TISSUE Peripheral artery disease 11/24/2024 9:05 AM CDT AMPUTATION TOE Peripheral artery disease 11/24/2024 9:05 AM CDT documented as of this encounter Visit Diagnoses Not on filedocumented in this encounter Care Teams Finisher Wallboard And Plasterboard Relationship Specialty Start Date End Date Jeff Strickland MD [address] [place] [address] PCP - General 03/05/18 [place] [address] [place] [address] Orthopedic Surgery 03/28/17 documented as of this encounter
--- OUTSIDE RECORDS SUMMARY | 2024-11-19 01:14 | XMS_ITS | Encounter Summary ---
Author Organization [facility] Address [facility]3 [place] [address] Care Team Providers Care Research Lab Assistant Name Role Phone Deandre Bojorquez MD Unavailable Jeff Strickland MD Primary Care Provider Encounter Details Date Type Department Care Team (Late st Contact Info) Description 11/21/2023 Lab Requisition [facility] [address] [place] [phone] Alan Davenport MD [facility] OF [place] [address] Social History Tobacco Use Types Packs/Day Years Used Date Smoking Tobacco: Never Smokeless Tobacco: Never Alcohol Use Standard Drinks/Week Comments Not Currently 0 (1 standard drink = 0.6 oz pur e alcohol) socially in past Sex and Gender Information Value Date Recorded Sex Assigned at Male 07/02/2021 2:37 PM CDT Legal Sex Male 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 Gender Identity Male 07/02/2021 2:37 [...] 10:00 AM CDT Appointment H IVR [address] [place] [address] Elroy Holcomb MD [address] [place] [address] 2L [place] [address] 11/24/2024 9:05 AM CDT Hospital Encounter [facility] [address] [place] [address] Elroy Holcomb MD [address] [place] [address] 2L [place] [address] Surgery General 11/24/2024 9:05 AM CDT - 11/24/2024 11:20 AM CDT Surgery [facility] R[facility] OP [address] [place] [address] Elroy Holcomb MD [address] [place] [address] 2L [place] [address] Bilateral first toe debridement 12/06/2024 10:40 AM CDT Office Visit [facility] - Endocrinology [address] [place] [address], [place] [phone] Marbin Flores MD 1201 [facility] DIV OF [place] [address] Niraj Turner MD 1225 [facility] 2L [place] [address] 2025 1:00 PM QUILL MACHINE TENDER Office Visit [facility] - Neurology [address] [place] [address], [place] [address] Becky Wilson MD [address] [place] [phone] Scheduled Procedures Name Priority Associated Diagnoses Date/Ti [...] Hold HLA Specimen 11/21/2023 1:31 PM CDT [facility] ([facility]) Comment:The Hold HLA specime n has been received into the lab and will be held for 5 years at 4 degrees. Blood BLOOD SPECIMEN / Unknown 11/18/2023 12:16 PM CDT 11/21/2023 12:17 PM CDT Alan Davenport MD LAB - BLOOD BANK ORDERABLES F inal Result [facility] ([facility]) [address] documented in this encounter Visit Diagnoses Not on filedocumented in this encounter Additional Health Concerns Infection Onset Date Last Indicated Resolved Time COVID-19 Under Investigation 09/13/2024 09/13/2024 09/13/2024 6:36 AM CDT documented as of this encounter Care Teams Research Lab Assistant Relationship Specialty Start Date End Date Jeff Strickland MD [address] [place] [address] PCP - General 03/05/18 [place] [address] [place] [address] Orthopedic Surgery 03/28/17 documented as of this encounter
--- OUTSIDE RECORDS SUMMARY | 2024-11-19 01:14 | XMS_ITS | Encounter Summary ---
Author Organization [facility] Address [facility] [place] [address] Care Team Providers Care Repossession Agent Name Role Phone Deandre Bojorquez MD Unavailable [phone] Jeff Strickland MD Primary Care Provider [phone] Encounter Details Date Type Department Care Team (Late st Contact Info) Description 07/31/[address] [facility]IN LAB [address] [place] [phone] Alan Davenport MD 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 RITO OP [address] [place] [address] Elroy Holcomb MD [address] [place] [address] 2L [place] [address] Surgery General 11/24/2024 9:05 AM CDT - 11/24/2024 11:[address] [facility] RITO OP [address] [place] [address] Elroy Holcomb MD [address] [place] [address] 2L [place] [address] Bilateral first toe debridement 12/06/2024 10:40 AM CDT Office Visit [facility] - Endocrinology [address] [place] [address], [place] [address] Marbin Flores MD 1201 [facility] DIV [place] [address] Niraj Turner MD 1225 [facility] 2L [place] [address] 2025 1:00 PM APPLIED TECHNOLOGIST Office Visit [facility] Physician Group - Neurology [address] [place] [address], [place] [address] Becky Wilson MD [address] [place] [phone] Scheduled Procedures Name Priority Associated Diagnoses Date/Ti [...] Hold HLA Specimen 07/31/2023 3:32 PM CDT [facility] ([facility]) Comment:The Hold HLA specime n has been received into the lab and will be held for 5 years at 4 degrees. Blood BLOOD SPECIMEN / Unknown 07/23/2023 2:05 PM CDT 07/31/2023 2:06 PM CDT Alan Davenport MD LAB - BLOOD BANK ORDERABLES F inal Result [facility] ([facility]) [address] documented in this encounter Visit Diagnoses Not on filedocumented in this encounter Additional Health Concerns Infection Onset Date Last Indicated Resolved Time COVID-19 Under Investigation 09/13/2024 09/13/2024 09/13/2024 6:36 AM CDT documented as of this encounter Care Teams Repossession Agent Relationship Specialty Start Date End Date Jeff Strickland MD [address] [place] [address] PCP - General 03/05/18 [place] [address] [place] [address] Orthopedic Surgery 03/28/17 documented as of this encounter
--- OUTSIDE RECORDS SUMMARY | 2024-11-19 01:14 | XMS_ITS | Encounter Summary ---
Author Organization [facility] Address [address] [place] [address] Phone Care Team Providers Care Manager Gift Name Role Phone Jeff Strickland MD Primary Care Provider Chan Nicholas MD Unavailable [phone] Alan Mccall MD Unavailable [phone] Lorna Lantigua MD Unavailable Juliette Savage RN Unavailable [phone] Pepito Haro MD PhD Unavailable Solange Guido MD Unavailable [phone] Letha Gil RN Unavailable Encounter Details Date Type Department Care Team (Late st Contact Info) Description 05/02/2021 Ophth Exam [facility] Medicine Ophthalmology [address] [place] [address] 1st [place] [phone] Corina Ventura MD PhD [address] [address] Social History Tobacco Use Types [...] on file Legal Sex Male 2:23 AM LOCATION MANAGER Gender Identity Not on file Sexual [...] COVID: Suspected 03/24/2023 03/24/2023 03/24/2023 5:45 PM LOCATION MANAGER COVID19 03/24/2023 03/24/2023 04/08/2023 3:06 AM LOCATION MANAGER COVID: Recovered Comment:Added based on recent COVID infection. 04/08/2023 04/10/2023 07/07/2023 3:06 AM C DT COVID: Suspected 04/10/2024 04/10/2024 04/11/2024 1:24 AM LOCATION MANAGER C. difficile suspected 04/11/2024 04/11/202404/11 1:21 PM LOCATION MANAGER documented as of this encounter Eye [...] arcade Normal Periphery Normal Normal Care Teams Manager Gift Relationship Specialty Start Date End Date Jeff Strickland MD [address] [address] PCP - General Family Medicine 04/02/18 Chan Nicholas MD [address] [place] [address] [id number] Consulting Physician Gastroenterology 11/24/18 Alan Mccall MD [address] [place] [address] [address] Referring Physician Nephrology 11/24/18 Lorna Lantigua MD [facility] [address] [address] Consulting Physician Cardiology 11/24/18 07/22/23 Juliette Savage, RN [address] [place] [address] Nurse Navigator 06/04/21 03/14/22 Pepito Haro MD PhD [address] [place] [address] Consulting Physician Neurosurgery 12/03/22 Solange Guido MD [address] [facility] [address] [place] [address] Referring Physician Cardiovascular Disease 07/23/23 Letha Gil, RN 4590 [facility] 5300 [place] [address] SHOP Outpatient Pattern Data Operator 04/14/24 04/18/24 documented as of this encounter
--- OUTSIDE RECORDS SUMMARY | 2024-11-19 01:14 | XMS_ITS | Clinical Summary ---
Author Organization [facility] Address [address] [place] [address] Phone Care Team Providers Care Movie Shot Cameraman Name Role Phone Jeff Strickland MD Primary Care Provider [phone] Allergies No known active allergies Medications pantoprazole [...] tablet Take 112 mcg by mouth daily advertising copy writer. Active aspirin (ANGELLA) 325 mg tablet Take 325 mg by mouth daily. Active Vit C-Vit P-Hmjpaz-WcHo-L utein (PRESERVISION) 226 mg-200 unit -5 mg-0.8 [...] Comments Blood Pressure 167/77 02/04/2019 9:16 AM GLUE JOINTER FEEDER Pulse 64 02/04/2019 9:16 AM GLUE JOINTER FEEDER Temperature 36.5 C (97.7 F) 02/04/2019 9:16 AM GLUE JOINTER FEEDER Respiratory Rate 16 02/04/2019 9:16 AM GLUE JOINTER FEEDER Oxygen Saturation 97% 02/04/2019 9:16 AM GLUE JOINTER FEEDER Inhaled Oxygen Concentration - - Weight 113.4 kg (250 lb) 02/04/2019 9:16 AM GLUE JOINTER FEEDER Height 175.3 cm (5' 9) 02/04/2019 9:16 AM GLUE JOINTER FEEDER Body Mass Index 36.92 02/04/2019 9:16 AM GLUE JOINTER FEEDER Plan of Treatment Health Maintenance Due Date [...] ACCESS/TRUE BLUE PPO [employer]ET[employer] MEDICARE SUPPLEMENT PPO [facility] BLUE ACCESS/TRUE BLUE PPO Care Teams Movie Shot Cameraman Relationship Specialty Start Date End Date Jeff Strickland MD [address] [facility] 120 [place] [address] PCP - General Family Practice 01/01/19
--- OUTSIDE RECORDS SUMMARY | 2024-11-19 01:14 | XMS_ITS | Encounter Summary ---
Author Organization [facility] Address [address] [place] [address] Care Team Providers Care Java Sybase Developer Name Role Phone Deandre Bojorquez MD Unavailable [phone] Jeff Strickland MD Primary Care Provider [phone] Encounter Details Date Type Department Care Team (Late st Contact Info) Description 09/24/2024 Results Follow-Up [facility] Early Admission Unit [address] [place] [phone] Angel Crook MD [address] [place] [address] Social History Tobacco Use Types Packs/Day Years [...] and heating? Not hard at all 09/24/2024 [facility] of Occupat ional Health - Occupational Stress [...] any time in the past 12 m [facility], were you homeless or living in a assisted (including now)? No 09/24/2024 Sex and Gender Information Value Date Recorded Sex Assigned at Male 07/02/2021 2:37 PM CDT Legal Sex Male 10:14 PM MANAGER TAX Gender Identity Male 07/02/2021 2:37 PM CDT [...] Description 11/23/2024 10:00 AM CDT Appointment [facility] IVR [address] [place] [address] Elroy Holcomb MD [facility]5 [facility] 2L [place] [address] 11/24/2024 9:05 AM CDT Hospital Encounter [facility] RITO OP [address] [place] [address] Elroy Holcomb MD [address] [place] [address] 2L [place] [address] Surgery General 11/24/2024 9:05 AM CDT - 11/24/2024 11:20 AM CDT Surgery [facility] RITO OP [address] [place] [address] Elroy Holcomb MD 1225 [facility] 2L [place] [address] Bilateral first toe debridement 12/06/2024 10:40 AM CDT Office Visit [facility] Physician Group - Endocrinology [address] [place] [address], [place] [address] Marbin Flores MD 1201 [facility] DIV [place] [address] Niraj Turner MD [facility]5 [facility] 2L [place] [address] 2025 1:00 PM MANAGER TAX Office Visit [facility] Physician Group - Neurology [address] [place] [address], [place] [address] Becky Wilson MD [address] [place] [phone] Scheduled Procedures Name Priority Associated Diagnoses Date/Ti me IRRIGATION/DEBRIDEMENT WOUND/TISSUE Peripheral artery disease 11/24/2024 9:05 AM CDT AMPUTATION TOE Peripheral artery disease 11/24/2024 9:05 AM CDT documented as of this encounter Visit Diagnoses Not on filedocumented in this encounter Care Teams Java Sybase Developer Relationship Specialty Start Date End Date Jeff Strickland MD [address] [place] [address] PCP - General 03/05/18 [place] [address] [address] Orthopedic Surgery 03/28/17 documented as of this encounter
--- OUTSIDE RECORDS SUMMARY | 2024-11-19 01:14 | XMS_ITS | Encounter Summary ---
Author Organization [facility] Address [address] [facility] [place] [address] Care Team Providers Care Hospitality Specialist Name Role Phone Deandre Bojorquez MD Unavailable [phone] Jeff Strickland MD Primary Care Provider [phone] Reason for Visit * Reason Onset Date Comments Post-Op 09/03/2024 Encounter Details Date Type Department Care Team (Late st Contact Info) Description 09/03/2024 Telephone [facility] - Cardiology [address] [facility] 1120 [place] [address] Hannah Goodman MD [address] [facility] 2L [place] [address] Post-Op Social History Tobacco Use Types Packs/Day [...] and heating? Not hard at all 09/04/2024 [facility] [place] of Occupat ional Health - Occupational Stress [...] in the past 12 [facility], were you [facility] or living in a usp (including now)? No 09/04/2024 Sex and Gender Information Value Date Recorded Sex Assigned at Male 07/02/2021 2:37 PM CDT Legal Sex Male 10:14 PM FRONT DESK ATTENDANT Gender Identity Male 07/02/2021 2:37 PM [...] confused post op Patient Call Back number: [phone] documented in this encounter Plan of Treatment Upcoming Encounters Date Type Department Care Team (Late st Contact Info) Description 11/23/2024 10:00 AM CDT Appointment [facility] IVR [address] [place] [address] Elroy Holcomb MD [address] [place] [address] 2L [place] [address] 11/24/2024 9:05 AM CDT Hospital Encounter [facility] RITO OP [address] [place] [address] Elroy Holcomb MD [address] [place] [address] 2L [place] [address] Surgery General 11/24/2024 9:05 AM CDT - 11/24/2024 11:20 AM CDT Surgery [facility] RITO OP [address] [place] [address] Elroy Holcomb MD [address] [place] [address] 2L [place] [address] Bilateral first toe debridement 12/06/2024 10:40 AM CDT Office Visit [facility] - Endocrinology [address] [place] [address], [place] [address] Marbin Flores MD [address] [place] [address] DIV OF ABD [place] [address] Niraj Turner MD [address] [place] [address] 2L [place] [address] 2025 1:00 PM FRONT DESK ATTENDANT Office Visit [facility] - Neurology [facility]5 [facility], [place] [address] Becky Wilson MD 1225 [place] [phone] Scheduled Procedures Name Priority Associated Diagnoses Date/Ti [...] documented as of this encounter Care Teams Hospitality Specialist Relationship Specialty Start Date End Date Jeff Strickland MD [address] [place] [address] PCP - General 03/05/18 [place] [address] [address] Orthopedic Surgery 03/28/17 documented as of this encounter
--- OUTSIDE RECORDS SUMMARY | 2024-11-19 01:14 | XMS_ITS | Patient Health Record ---
Author Organization [facility] As Ruby Ribbon [facility] Address [address] [place] [address] Care Team Providers Care Business Risk Consultant Name Role Phone Trenton Hernandez Unavailable [phone] Reason For Referral No Information Medications Medication [...] UNIT)-FOLIC ACID 1 MG TABLET *Reorder from [employer] for eRx and Interaction Alerts* 02/26/2023 Active Azelastine HCl 137 MCG/SPRAY Solution Nasal 02/26/2023 Active Dilt-XR 240 MG Capsule Extended Release 24 Hour Oral 02/26/2023 Active Potassium Chloride ER 10 MEQ Tablet Extended Release Oral 02/26/2023 Active Mounjaro 2.5 MG/0.5ML Solution Pen-injector Subcutaneous *Reorder from [employer] for eRx and Interaction Alerts* 02/26/2023 Active Methocarbamol 500 MG Tablet Oral 02/26/2023 Active Levothyroxine Sodium 112 MCG Tablet Oral 02/26/2023 Active Atorvastatin Calcium 80 MG Tablet Oral 02/26/2023 Active Gabapentin 100 MG Capsule Oral 02/26/2023 Active SODIUM BICARBONATE 1,650 MG-CITRIC ACID 1,000 MG EFFERVESCENT TABLET *Reorder from [facility] for eRx and Interaction Alerts* 02/26/2023 Active Sevelamer Carbonate 800 MG Tablet Oral 02/26/2023 Active IPRATROPIUM BROMIDE 21 MCG (0.03 %) NASAL SPRAY *Reorder from [facility] for eRx and Interaction Alerts* 02/26/2023 Active [...] ADHESIVE PATCH, MEDICATED TOPICAL *Pick strength-form from [facility] for eRX* 02/26/2023 Active Amoxicillin-Pot Clavulanate 875-125 MG Tablet Oral 02/26/2023 Active Amoxicillin 500 MG Capsule Oral 02/26/2023 Active guanFACINE HCl ER 3 MG Tablet Extended Release 24 Hour Oral 02/26/2023 Active Tamsulosin HCl 0.4 MG Capsule Oral 02/26/2023 Active SEVELAMER HCL 800 MG TABLET *Reorder from [facility] for eRx and Interaction Alerts* 02/26/2023 Active LEVOTHYROXINE 112 MCG CAPSULE *Reorder from [facility] for eRx and Interaction Alerts* 02/26/2023 Active ULTRA-FINE SHORT PEN NEEDLE 31 gauge x 5/16 NEEDLE, DISPOSABLE MISCELLANEOUS *Reorder from [facility] for eRx and Interaction Alerts* 02/26/2023 Active Tylenol PM Extra Strength *Pick strength-form from [facility] for eRX* 02/26/2023 Active Mounjaro 5 MG/0.5ML Solution Pen-injector Subcutaneous *Reorder from [facility] for eRx and Interaction Alerts* 02/26/2023 Active [...] Date Coverage End Date Aet[employer] [address] [place] FIGUEROA [phone] [id number] GRACE INTERIANO Self - patient is the insured Medical (General) History Surgical History Surgery Date(Month/Year) Removal of gallbladder (14142) Cataract surgery (79769) 02/17/2013 Sinus surgery 02/17/2021 Cardiac stent 07/18/2021
--- OUTSIDE RECORDS SUMMARY | 2024-11-19 01:14 | XMS_ITS | Encounter Summary ---
Author Organization [facility] Address [address] [place] [address] Care Team Providers Care Cloth Presser Name Role Phone Deandre Bojorquez MD Unavailable [phone] Jeff Strickland MD Primary Care Provider [phone] Encounter Details Date Type Department Care Team (Late st Contact Info) Description 02/07/2023 Lab Requisition [facility] MAIN LAB [address] [place] [address] Alan Davenport MD [facility]1 [facility] [place] [address] Social History Tobacco Use Types Packs/Day Years Used Date Smoking Tobacco: Never Smokeless Tobacco: Never Alcohol Use Standard Drinks/Week Comments Not Currently 0 (1 standard drink = 0.6 oz pur e alcohol) socially in past Sex and Gender Information Value Date Recorded Sex Assigned at Male 07/02/2021 2:37 PM CDT Legal Sex Male 10:14 PM OPERATIONS SUPERINTENDENT Gender Identity Male 07/02/2021 2:37 PM [...] 10:00 AM CDT Appointment H IVR [address] [place] [address] Elroy Holcomb MD [address] [place] [address] 2L [place] [address] 11/24/2024 9:05 AM CDT Hospital Encounter [facility] RITO OP [address] [place] [address] Elroy Holcomb MD [address] [place] [address] 2[address] [place] [address] Surgery General 11/24/2024 9:05 AM CDT - 11/24/2024 11:20 AM CDT Surgery [facility] RITO OP [address] [place] [address] Elroy Holcomb MD [address] [place] [address] 2L [place] [address] Bilateral first toe debridement 12/06/2024 10:40 AM CDT Office Visit [facility] - Endocrinology [address] [place] [address], [place] [phone] Marbin Flores MD [address] [facility] DIV OF ABD [place] [address] Niraj Turner MD [address]25 [facility] 2L [place] [address] 2025 1:00 PM OPERATIONS SUPERINTENDENT Office Visit [facility] - Neurology [address] [place] [address], [place] [address] Becky Wilson MD [address] [place] [phone] Scheduled Procedures Name Priority Associated Diagnoses Date/Ti me IRRIGATION/DEBRIDEMENT WOUND/TISSUE Peripheral artery disease 11/24/2024 9:05 AM CDT AMPUTATION TOE Peripheral artery disease 11/24/2024 9:05 AM CDT documented as of this encounter Procedures Procedure Name Priority Date/Time Associated Diagnosis Comments HOLD HLA SPECIMEN Routine 2023 7:5 8 AM OPERATIONS SUPERINTENDENT documented in this encounter Results * HOLD HLA SPECIMEN (2023 7:58 AM OPERATIONS SUPERINTENDENT) Hold HLA Specimen 02/07/2023 9:01 AM OPERATIONS SUPERINTENDENT [facility]) Comment:The Hold HLA specime n has been received into the lab and will be held for 5 years at 4 degrees. Blood BLOOD SPECIMEN / Unknown 2023 7:58 AM OPERATIONS SUPERINTENDENT 02/07/2023 7:59 AM OPERATIONS SUPERINTENDENT Alan Davenport MD LAB - BLOOD BANK ORDERABLES F inal Result [facility] ([facility]) [address] [place] [address], [facility] documented in this encounter Visit Diagnoses Not on filedocumented in this encounter Additional Health Concerns Infection Onset Date Last Indicated Resolved Time COVID-19 Under Investigation 09/13/2024 09/13/2024 09/13/2024 6:36 AM CDT documented as of this encounter Care Teams Cloth Presser Relationship Specialty Start Date End Date Jeff Strickland MD [address] [place] [address] PCP - General 03/05/18 [place] [address] [place] [address] Orthopedic Surgery 03/28/17 documented as of this encounter
--- OUTSIDE RECORDS SUMMARY | 2024-11-19 01:14 | XMS_ITS | Encounter Summary ---
Author Organization [facility] Address [facility] [place] [address] Care Team Providers Care Yard Attendant Name Role Phone Deandre Bojorquez MD Unavailable Jeff Strickland MD Primary Care Provider [phone] Encounter Details Date Type Department Care Team (Late st Contact Info) Description 04/10/2023 Lab Requisition [facility] MAIN LAB [address] [place] [address] Alan Davenport MD [facility] [place] [address] Social History Tobacco Use Types Packs/Day Years Used Date Smoking Tobacco: Never Smokeless Tobacco: Never Alcohol Use Standard Drinks/Week Comments Not Currently 0 (1 standard drink = 0.6 oz pur e alcohol) socially in past Sex and Gender Information Value Date Recorded Sex Assigned at Male 07/02/2021 2:37 PM CDT Legal Sex Male 10:14 PM CHEMISTRY LABORATORY TECHNICIAN Gender Identity Male 07/02/2021 2:37 PM [...] 10:00 AM CDT Appointment H IVR [address] [place] [address] Elroy Holcomb MD [address] [place] [address] 2L [place] [address] 11/24/2024 9:05 AM CDT Hospital Encounter [facility] RITO OP [address] [place] [address] Elroy Holcomb MD [address] [place] [address] 2L [place] [address] Surgery General 11/24/2024 9:05 AM CDT - 11/24/2024 11:20 AM CDT Surgery [facility] RITO OP [address] [place] [address] Elroy Holcomb MD [address] [place] [address] 2L [place] [address] Bilateral first toe debridement 12/06/2024 10:40 AM CDT Office Visit [facility] - Endocrinology [address] [place] [address], [place] [address] Marbin Flores MD [address] [facility] DIV [place] [address] Niraj Turner MD 1225 [facility] 2L [place] [address] 2025 1:00 PM CHEMISTRY LABORATORY TECHNICIAN Office Visit [facility] - Neurology [address] [place] [address], [place] [address] Becky Wilson MD [address] [place] [phone] Scheduled Procedures Name Priority Associated Diagnoses Date/Ti me IRRIGATION/DEBRIDEMENT WOUND/TISSUE Peripheral artery disease 11/24/2024 9:05 AM CDT AMPUTATION TOE Peripheral artery disease 11/24/2024 9:05 AM CDT documented as of this encounter Procedures Procedure Name Priority Date/Time Associated Diagnosis Comments HOLD HLA SPECIMEN Routine 04/02/2023 3:0 1 PM CHEMISTRY LABORATORY TECHNICIAN documented in this encounter Results * HOLD HLA SPECIMEN (04/02/2023 3:01 PM CHEMISTRY LABORATORY TECHNICIAN) Hold HLA Specimen 04/10/2023 4:01 PM CHEMISTRY LABORATORY TECHNICIAN [facility] Comment:The Hold HLA specime n has been received into the lab and will be held for 5 years at 4 degrees. Blood BLOOD SPECIMEN / Unknown 04/02/2023 3:01 PM CHEMISTRY LABORATORY TECHNICIAN 04/10/2023 3:01 PM CHEMISTRY LABORATORY TECHNICIAN Alan Davenport MD LAB - BLOOD BANK ORDERABLES F inal Result [facility] ([facility]) [address] [place] [address], [facility] documented in this encounter Visit Diagnoses Not on filedocumented in this encounter Additional Health Concerns Infection Onset Date Last Indicated Resolved Time COVID-19 Under Investigation 09/13/2024 09/13/2024 09/13/2024 6:36 AM CDT documented as of this encounter Care Teams Yard Attendant Relationship Specialty Start Date End Date Jeff Strickland MD [address] [place] [address] PCP - General 03/05/18 [place] [address] [place] [address] Orthopedic Surgery 03/28/17 documented as of this encounter
--- OUTSIDE RECORDS SUMMARY | 2024-11-19 01:14 | XMS_ITS | Encounter Summary ---
Author Organization [facility] Address [facility] [place] [address] Care Team Providers Care Solderer Furnace Name Role Phone Deandre Bojorquez MD Unavailable [phone] Jeff Strickland MD Primary Care Provider [phone] Encounter Details Date Type Department Care Team (Late st Contact Info) Description 10/28/2023 Lab Requisition [facility] MAIN LAB [address] [place] [address] Alan Davenport MD [facility] OF ABD TRANS[place] [address] Social History Tobacco Use Types Packs/Day Years Used Date Smoking Tobacco: Never Smokeless Tobacco: Never Alcohol Use Standard Drinks/Week Comments Not Currently 0 (1 standard drink = 0.6 oz pur e alcohol) socially in past Sex and Gender Information Value Date Recorded Sex Assigned at Male 07/02/2021 2:37 PM CDT Legal Sex Male 10:14 PM DRILLING FIELD OPERATOR Gender Identity Male 07/02/2021 2:37 [...] 10:00 AM CDT Appointment H IVR [address] [place] [address] Elroy Holcomb MD [address] [place] [address] 2L DIV [place] [address] 11/24/2024 9:05 AM CDT Hospital Encounter [facility] RITO OP [address] [place] [address] Elroy Holcomb MD [address] [place] [address] 2L DIV [place] [address] Surgery General 11/24/2024 9:05 AM CDT - 11/24/2024 11:20 AM CDT Surgery [facility] RITO OP [address] [place] [address] Elroy Holcomb MD [address] [place] [address] 2L DIV [place] [address] Bilateral first toe debridement 12/06/2024 10:40 AM CDT Office Visit [facility] - Endocrinology [address] [place] [address], [place] [address] Marbin Flores MD [address] [facility] DIV OF ABD [place]ANS[place] [address] Niraj Turner MD 1225 [facility] 2L [place] [address] 2025 1:00 PM DRILLING FIELD OPERATOR Office Visit [facility] - Neurology [address] [place] [address], [place] [address] Becky Wilson MD [address] [place] [phone] Scheduled Procedures Name Priority Associated Diagnoses Date/Ti [...] Hold HLA Specimen 10/28/2023 5:00 PM CDT [facility] ([facility]) Comment:The Hold HLA specime n has been received into the lab and will be held for 5 years at 4 degrees. Blood BLOOD SPECIMEN / Unknown 10/22/2023 3:50 PM CDT 10/28/2023 3:50 PM CDT Alan Davenport MD LAB - BLOOD BANK ORDERABLES F inal Result [facility] ([facility] [address] documented in this encounter Visit Diagnoses Not on filedocumented in this encounter Additional Health Concerns Infection Onset Date Last Indicated Resolved Time COVID-19 Under Investigation 09/13/2024 09/13/2024 09/13/2024 6:36 AM CDT documented as of this encounter Care Teams Solderer Furnace Relationship Specialty Start Date End Date Jeff Strickland MD [address] [place] [address] PCP - General 03/05/18 [place] [address] [place] [address] Orthopedic Surgery 03/28/17 documented as of this encounter
--- OUTSIDE RECORDS SUMMARY | 2024-11-19 01:14 | XMS_ITS | Patient Health Record ---
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 He denies tobacco, alcohol, or illicit drug abuse The patient is retired. He p reviously worked as a [employer] worker. 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 He denies tobacco, alcohol, or illicit drug abuse The patient is retired. He p reviously worked as a [employer] worker. 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 He denies tobacco, alcohol, or illicit drug abuse The patient is retired. He p reviously worked as a [employer] worker. 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 He denies tobacco, alcohol, or illicit drug abuse The patient is retired. He p reviously worked as a [employer] worker. 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 He denies tobacco, alcohol, or illicit drug abuse The patient is retired. He p reviously worked as a [employer] worker. 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 He denies tobacco, alcohol, or illicit drug abuse The patient is retired. He p reviously worked as a [employer] worker. 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 He denies tobacco, alcohol, or illicit drug abuse The patient is retired. He p reviously worked as a [employer] worker. 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 He denies tobacco, alcohol, or illicit drug abuse The patient is retired. He p reviously worked as a [employer] worker. 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 He denies tobacco, alcohol, or illicit drug abuse The patient is retired. He p reviously worked as a [employer] worker. 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 He denies tobacco, alcohol, or illicit drug abuse The patient is retired. 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 He denies tobacco, alcohol, or illicit drug abuse The patient is retired. He p reviously worked as a [employer] worker. 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 He denies tobacco, alcohol, or illicit drug abuse The patient is retired. 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 He denies tobacco, alcohol, or illicit drug abuse The patient is retired. 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) Active confirmed Localized, primary osteoarthritis of the shoulder region (819387001) Problem Pain in left hip (M25.552) Active confirmed Pain of left hi p joint (finding) (048147965379882) Problem Spondylosis without myelopathy or radiculopathy, lumbar region (M47.816) Active confirmed Lumbosacral spondylosis without myelopathy (13396956) Problem Other intervertebral disc degeneration, lumbar region (M51.36) Active confirmed Degeneration of lumbar intervertebral disc (11834209) Problem Radiculopathy, lumbar region (M54.16) Active confirmed Lumbar radiculopathy (732612213) Problem Radiculopathy, lumbosacral region (M54.17) Active confirmed Lumbosacral radiculopathy (8558158) Problem Osseous stenosis of neural canal of lumbar region (M99.33) Active confirmed Spinal stenosis of lumbar region (42245176) Problem oil heaterman (current) use of anticoagulants (Z79.01) Active confirmed Long-term curre nt use of anticoagulant (055820067) Problem Other intervertebral disc degeneration, lumbar region [...] Date Provider Diagnosis [facility] [address] [place] [phone] 01/12/2024 Sergio Stynowick Radiculopathy, lumba r region M54.16 ; Radiculopathy, lumbosacral region M54.17 ; Other chest pain R07.89 ; Other intervertebral disc degeneration, lumbar region M51.36 ; 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 ; Spondylosis without myelopathy or radiculopathy, lumbar region M47.816 and oil heaterman (current) use of anticoagulants Z79.01 [facility] [address] [place] [phone] 01/19/2024 Sergio Stynowick Radiculopathy, lumba r region M54.16 ; Other intervertebral disc degeneration, lumbar region with discogenic back pain and lower extremity pain M51.362 and 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 [facility] [address] [place] [phone] 02/03/2024 Sergio Stynowick Other chest pain R07.89 ; Pain in left knee M25.562 ; Radiculopathy, lumbar region M54.16 ; Other intervertebral disc degeneration, lumbar region M51.36 ; 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 ; Spondylosis without myelopathy or radiculopathy, lumbar region M47.816 and [facility] (current) use of anticoagulants Z79.01 [facility] [address] [place] [address] 03/03/2024 Sergio Stynowick Pain in left knee M25.562 ; Primary osteoarthritis, unspecified shoulder M19.019 ; Other chest pain R07.89 ; Radiculopathy, lumbar region M54.16 ; Other intervertebral disc degeneration, lumbar region M51.36 ; 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 ; Spondylosis without myelopathy or radiculopathy, lumbar region M47.816 ; [facility] (current) use of anticoagulants Z79.01 ; Pain in right shoulder M25.511 and Pain in left shoulder M25.512 [facility] [address] [place] [address] 03/08/2024 Sergio Stynowick Primary osteoarthritis, unspecified shoulder M19.019 [facility] [address] [place] [phone] 03/31/2024 Sergio Schmitzick ASSESSMENTS Encounter Date Diagnosis [...] to notify his primary care physician and/or plastics scientist to obtain clearance prior to discontinuing this medication. 02/03/2024 [facility] (current) use of anticoagulants (ICD-10 - Z79.01) 03/03/2024 Spondylosis without myelopathy or radiculopathy, lumbar region (ICD-10 - M47.816) 03/03/2024 oil heaterman (current) use of anticoagulants (ICD-10 [...] Coverage End Date [employer] MEDICARE [address] [place] [address] [id number] GRACE INTERIANO Self - patient is the insured MEDICAL (GENERAL) HISTORY Medical History History ICD Code Hypertension Hypothyroidism Diabetes type 2 Gastroesophageal reflux disease (GERD) Renal cell cancer Chronic kidney disease stage 4 Sleep apnea CHF Surgical History Surgery Date(Month/Year) Right total knee arthroplasty 08/2015 Cholecystectomy Hernia repair 2019 Cardiac stent 07/2020
--- OUTSIDE RECORDS SUMMARY | 2024-11-19 01:14 | XMS_ITS | Clinical Summary ---
Author Organization [facility] Address [address], [place] [address] Phone Care Team Providers Care Cattle Brander Name Role Phone Jeff Strcikland MD Primary Care Provider [phone] Allergies No known active allergies Medications levothyroxine [...] tablet 3 0 Active Continuous Blood Gluc Health Services Administrator (FreeStyle Em Burns) device 1 each daily 0 Active Continuous Blood Gluc Sensor (FreeStyle Em Sensor System) misc 1 each once every 2 weeks 0 Active Lancets (OneTouch Delica Plus [id number]) misc OneTouch Delica Plus Lancet 33 gauge [...] 11/10/2019 Overview (12/17/2019): Kendall Carl 1955 Referring Steel Fitter: Alan Mccall Dialysis Info: NOD GFR 13 Type: Time: (Not currently on dialysis) days Blood Type: O NEG Body mass index is 37.36 kg/m . ALERTS Parachute Repairer: needs to establish Past Medical History: Diagnosis Date Arthropathy RA. Dr Strickland manages. CHF (congestive heart failure) 2 yrs ago Ball Truing Machine Operator is Dr. Becerra in [place]. CKD (chronic kidney disease), stage V Community acquired pneumonia 2018 [facility] hospitalized. Diabetes mellitus 20 years. Lantus pen. Esophageal reflux takes med Hypercholesteremia 5-10 yrs meds Hypertension takes meds Hypothyroidism meds 20 years Kidney stones 5-6 years ago had 2 in the same year. Malignancy right kidney 2012 Obstructive sleep apnea 3 years. [facility]. Angela remember doctors name Renal cell [...] Impression: It is the impression of this marriage and family social worker that Kendall Gillris has several positive factors for Kidney transplant candidacy from a psychosocial perspective. Patient appears to have appropriate knowledge of illness. Patient has sufficient insurance coverage and stable financial situation for post transplant needs. No concerns regarding substance abuse, legal issues, or mental health needs. Patient has adequate support system and appropriate discharge plan. Plan: mold loft worker to provide supportive services as needed. Patient appears to be a reasonable candidate for transplant from a psychosocial perspective. -Post transplant arrangement forms are needed prior to being listed. -Updated toxicology results needed, per protocol Psychiatric Consult Recommended: No Transplant Physical Geographer: Joy Tam LCSW RD: 11/09/2019 BMI= 36.2, [...] nephrectomy. 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 [id number] Immunizations Immunization Administration Dates Next Due Influenza [...] Insurance A[employer] PM INTERFACED INSURANCE Care Teams Cattle Brander Relationship Specialty Start Date End Date Jeff Strickland MD [address] [facility] 162 [facility] [address] [place] [address] PCP - General Internal Medicine 07/15/18
--- OUTSIDE RECORDS SUMMARY | 2024-11-19 01:14 | XMS_ITS | Encounter Summary ---
Author Organization [facility] Healthcare Address [address] [place] [address] Care Team Providers Care Business Technology Architect Name Role Phone Jeff Strickland MD Primary Care Provider Chan Nicholas MD Unavailable [phone] Alan Mccall MD Unavailable [phone] Pepito Haro MD PhD Unavailable Solange Guido MD Unavailable [phone] Encounter Details Date Type Department Care Team (Late st Contact Info) Description 07/26/2024 Orders Only [facility] Health Information Management [address] [place] [id number] Scanning, Provider Social History Tobacco Use Types Packs/Day Years Used Date Smoking Tobacco: Never Smokeless Tobacco: Never Alcohol Use Standard Drinks/Week Comments Yes 0 (1 standard drink = 0.6 oz pur e alcohol) rarely [facility] Utilities Answer Date Recorded In the past 12 months has [employer] electric, gas, oil, or water company threatened [...] often do you attend chur ch or samaritan services? Never 03/25/2023 Do you belong to any clubs o r organizations such as roman catholic groups, unions, fraternal or athletic groups, [...] file Legal Sex Male 2:23 AM LEAD APPLICATIONS DEVELOPER Gender Identity Not on file Sexual Orientation [...] filedocumented in this encounter Care Teams Business Technology Architect Relationship Specialty Start Date End Date Jeff Strickland MD [address] [place] [address] [address] [address] PCP - General Family Medicine 04/02/18 Chan Nicholas MD [facility] STATE [address] [address] Consulting Physician Gastroenterology 11/24/18 Alan Mccall MD [address] [place] [address] [address] [address] Referring Physician Nephrology 11/24/18 Pepito Haro MD PhD [facility] [address] [id number] Consulting Physician Neurosurgery 12/03/22 Solange Guido MD [address] [facility] [address] [place] [address] Referring Physician Cardiovascular Disease 07/23/23 documented as of this encounter
--- OUTSIDE RECORDS SUMMARY | 2024-11-19 01:15 | XMS_ITS | Encounter Summary ---
Author Organization [facility] Address [facility] [place] [address] Care Team Providers Care Expert Witness Name Role Phone Deandre Bojorquez MD Unavailable [phone] Jeff Strickland MD Primary Care Provider [phone] Encounter Details Date Type Department Care Team (Late st Contact Info) Description 02/04/2024 Lab Requisition [facility] MAIN LAB [address] [place] [phone] Alan Davenport MD [facility] [place] [address] Social History Tobacco Use Types Packs/Day Years [...] 10:00 AM CDT Appointment H IVR [address] [place] [address] Elroy Holcomb MD [address] [place] [address] 2L [place] [address] 11/24/2024 9:05 AM CDT Hospital Encounter [facility] RITO OP [address] [place] [address] Elroy Holcomb MD [address] [place] [address] 2L [place] [address] Surgery General 11/24/2024 9:05 AM CDT - 11/24/2024 11:20 AM CDT Surgery [facility] RITO OP [address] [place] [address] Elroy Holcomb MD [address] [place] [address] 2L [place] [address] Bilateral first toe debridement 12/06/2024 10:40 AM CDT Office Visit [facility] - Endocrinology [address] [place] [address], [place] [phone] Marbin Flores MD [address] [facility] DIV [place] [address] Niraj Turner MD 12[address] [facility] 2L [place] [address] 2025 1:00 PM ROVING INSPECTOR Office Visit [facility] - Neurology [address] [place] [address], [place] [address] Becky Wilson MD [address] [place] [phone] Scheduled Procedures Name Priority Associated Diagnoses Date/Ti me IRRIGATION/DEBRIDEMENT WOUND/TISSUE Peripheral artery disease 11/24/2024 9:05 AM CDT AMPUTATION TOE Peripheral artery disease 11/24/2024 9:05 AM CDT documented as of this encounter Procedures Procedure Name Priority Date/Time Associated Diagnosis Comments HOLD HLA SPECIMEN Routine 01/27/2024 3:2 3 PM ROVING INSPECTOR documented in this encounter Results * HOLD HLA SPECIMEN (01/27/2024 3:23 PM ROVING INSPECTOR) Hold HLA Specimen 02/04/2024 4:31 PM ROVING INSPECTOR [facility] ([facility]) Comment:The Hold HLA specime n has been received into the lab and will be held for 5 years at 4 degrees. Blood BLOOD SPECIMEN / Unknown 01/27/2024 3:23 PM ROVING INSPECTOR 02/04/2024 3:23 PM ROVING INSPECTOR Alan Davenport MD LAB - BLOOD BANK ORDERABLES F inal Result [facility] ([facility]) [address] [place] [address], [facility] documented in this encounter Visit Diagnoses Not on filedocumented in this encounter Additional Health Concerns Infection Onset Date Last Indicated Resolved Time COVID-19 Under Investigation 09/13/2024 09/13/2024 09/13/2024 6:36 AM CDT documented as of this encounter Care Teams Expert Witness Relationship Specialty Start Date End Date Jeff Strickland MD [address] [place] [address] PCP - General 03/05/[place] [address] [place] [address] Orthopedic Surgery 03/28/17 documented as of this encounter
--- OUTSIDE RECORDS SUMMARY | 2024-11-19 01:15 | XMS_ITS | Encounter Summary ---
Author Organization [facility] Address [address] [place] [address] Care Team Providers Care Plate Slitter And Inspector Name Role Phone Deandre Bojorquez MD Unavailable [phone] Jeff Strickland MD Primary Care Provider [phone] Encounter Details Date Type Department Care Team (Late st Contact Info) Description 03/12/2024 Lab Requisition [facility] MAIN LAB [address] [place] [phone] Alan Davenport MD [facility] [place] [address] Social History Tobacco Use Types Packs/Day Years Used Date Smoking Tobacco: Never Smokeless Tobacco: Never Alcohol Use Standard Drinks/Week Comments Not Currently 0 (1 standard drink = 0.6 oz pur e alcohol) socially in past Sex and Gender Information Value Date Recorded Sex Assigned at Male 07/02/2021 2:37 PM CDT Legal Sex Male 10:14 PM OPERATING ROOM NURSE Gender Identity Male 07/02/2021 2:37 PM [...] 10:00 AM CDT Appointment H IVR [address] [place] [address] Elroy Holcomb MD [address] [place] [address] 2[address] [place] [address] 11/24/2024 9:05 AM CDT Hospital Encounter [facility] RITO OP [address] [place] [address] Elroy Holcomb MD [address] [place] [address] 2L [place] [address] Surgery General 11/24/2024 9:05 AM CDT - 11/24/2024 11:20 AM CDT Surgery [facility] RITO OP [address] [place] [address] Elroy Holcomb MD [address] [place] [address] 2L [place] [address] Bilateral first toe debridement 12/06/2024 10:40 AM CDT Office Visit [facility] - Endocrinology [address] [place] [address], [place] [phone] Marbin Flores MD [address] [facility] DIV [place] [address] Niraj Turner MD 1225 [facility] 2L [place] [address] 2025 1:00 PM OPERATING ROOM NURSE Office Visit [facility] - Neurology [address] [place] [address], [place] [address] Becky Wilson MD [address] [place] [phone] Scheduled Procedures Name Priority Associated Diagnoses Date/Ti me IRRIGATION/DEBRIDEMENT WOUND/TISSUE Peripheral artery disease 11/24/2024 9:05 AM CDT AMPUTATION TOE Peripheral artery disease 11/24/2024 9:05 AM CDT documented as of this encounter Procedures Procedure Name Priority Date/Time Associated Diagnosis Comments HOLD HLA SPECIMEN Routine 03/05/2024 1:4 0 PM OPERATING ROOM NURSE documented in this encounter Results * HOLD HLA SPECIMEN (03/05/2024 1:40 PM OPERATING ROOM NURSE) Hold HLA Specimen 03/12/2024 3:00 PM OPERATING ROOM NURSE [facility] ([facility]) Comment:The Hold HLA specime n has been received into the lab and will be held for 5 years at 4 degrees. Blood BLOOD SPECIMEN / Unknown 03/05/2024 1:40 PM OPERATING ROOM NURSE 03/12/2024 1:40 PM OPERATING ROOM NURSE Alan Davenport MD LAB - BLOOD BANK ORDERABLES F inal Result [facility] ([facility]) [address] [place] [address], [facility] documented in this encounter Visit Diagnoses Not on filedocumented in this encounter Additional Health Concerns Infection Onset Date Last Indicated Resolved Time COVID-19 Under Investigation 09/13/2024 09/13/2024 09/13/2024 6:36 AM CDT documented as of this encounter Care Teams Plate Slitter And Inspector Relationship Specialty Start Date End Date Jeff Strickland MD [address] [place] [address] PCP - General 03/05/18 [place] [address] [place] [address] Orthopedic Surgery 03/28/17 documented as of this encounter
--- OUTSIDE RECORDS SUMMARY | 2024-11-19 01:15 | XMS_ITS | Clinical Summary ---
Author Organization [facility] Address [facility] [place] [address] Care Team Providers Care Congressional Assistant Name Role Phone Jeff Strickland MD Primary Care Provider [phone] Allergies Active Allergy Reactions Criticality Noted Date [...] by mouth nightly at bedtime. Active Multiple Vitamins-Haworth als (PRESERVISION AREDS 2 OR) Take 1 [...] drink = 0.6 oz pur e alcohol) [facility] Utilities Answer Date Recorded In the past 12 months has th e electric, gas, oil, or water [employer] threatened to shut off services in [...] in a care home (including now)? No 05/02/2023 Sex and Gender Information Value Date Recorded Sex Assigned at Not on file Legal Sex Male 10:10 AM PHOTO MANAGER Gender Identity Not on file Sexual [...] discharge from hospital Lifestyle No Alice Rizzo, [facility] Insurance [employer] MEDICARE Advance Directives * Full Code (Latest Code Status on File) Date Activated Date Inactivated Comments 05/02/2023 12:46 AM 05/03/2023 12:26 PM Care Teams Congressional Assistant Relationship Specialty Start Date End Date Jeff Strickland MD [address] [facility] [address] [place] [address] PCP - General FAMILY PRACTICE 02/22/23
--- OUTSIDE RECORDS SUMMARY | 2024-11-19 01:15 | XMS_ITS ---
Author Organization [facility] Address [address] [place] [address] Care Team Providers Care Medical Reception Name Role Phone Jeff Strickland MD Primary Care Provider Chan Nicholas MD Unavailable [phone] Alan Mccall MD Unavailable Pepito Haro MD [...] both eyes EGFR Routine 04/13/2024 5:06 AM SPA ASSISTANT MANAGER HEMOGLOBIN A1C STAT 04/10/2024 11:41 PM SPA ASSISTANT MANAGER LIPID PANEL STAT 04/10/2024 11:41 PM SPA ASSISTANT MANAGER from Last 3 Months or Most [...] 300 + = 14 units Active FA-vit Auwha-A-bidm-vitamin D3 (Dialyvite 800-Ultra D) 0.8-2,000 mg-unit tablet [...] total) by mouth 06/04/19 25 Active vitamins A,C,X-bika-nflyio (PreserVision AREDS) 4,296 mcg-226 mg-90 mg capsule [...] damage Assessment & Plan (03/09/2024 6:25 PM SPA ASSISTANT MANAGER): Vision OD trends mild improvement, though [...] 03/26/2021 Assessment & Plan (03/26/2021 1:17 PM SPA ASSISTANT MANAGER): Enlarged mild sella turcica on a [...] units Assessment & Plan (03/26/2021 1:17 PM SPA ASSISTANT MANAGER): Chronic, uncontrolled, improving A1c today 7.7 [...] WNL Assessment & Plan (03/26/2021 1:16 PM SPA ASSISTANT MANAGER): Pt currently on Levothyroxine 112 mcg [...] 11/18/2018 Assessment & Plan (01/21/2019 2:02 PM SPA ASSISTANT MANAGER): Symptomatic. Will request for esophageal manometry. [...] well Assessment & Plan (03/26/2021 1:16 PM SPA ASSISTANT MANAGER): On statin therapy Tolerating well Last [...] nephrectomy. 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 [id number] Immunizations Immunization Administration Dates Next Due Hep [...] = 0.6 oz pur e alcohol) rarely [facility] Bellyities Answer Date Recorded In the past 12 months has [employer], gas, oil, or water [employer] threatened to shut off services in your [...] any clubs o r organizations such as spiritism groups, unions, fraternal or athletic groups, or [...] on file Legal Sex Male 2:23 AM SPA ASSISTANT MANAGER Gender Identity Not on file Sexual [...] CDT Respiratory Rate 16 04/13/2024 8:33 AM SPA ASSISTANT MANAGER Oxygen Saturation 98% 04/13/2024 8:33 AM SPA ASSISTANT MANAGER Inhaled Oxygen Concentration - - Weight [...] Selwyn Wong M.D. LC: MARC Report ID: [id number] Reading Location: [id number] Procedure Note Dolores Wong MD - 10/12/2024 EXAM DESCRIPTION: MRI BRAIN WO CONTRAST REASON FOR STUDY: other symptoms and signs involving cognitive functionsand awareness Cognitive changes, confusion, worse over that last several weeks, noinjury or trauma but patient states he has had several surgeries recently TECHNIQUE: Multiplanar imaging includes non-contrasted T1, T2, FLAIR, and diffusion with ADC map sequences. Additional sequence(s) sensitive Wedia products. Images stored on PACS. COMPARISON: MRI [...] Selwyn Wong M.D. LC: MARC Report ID: [id number] Reading Location: [id number] us Provider Transcribed Order IMG MRI PROCEDURES [...] Result * (ABNORMAL) eGFR (04/13/2024 5:06 AM SPA ASSISTANT MANAGER) eGFR 5(L) >=60 mL/min/1. 73 m2 [...] last reviewed 2020. Blood 04/13/2024 5:06 AM SPA ASSISTANT MANAGER 04/13/2024 5:31 AM SPA ASSISTANT MANAGER us Saul Engle MD LAB BLOOD ORDERABLES Final Resul t [facility] One [facility] Department of Laboratories [place], [place] [id number] * (ABNORMAL) Lipid panel (04/10/2024 11:41 PM SPA ASSISTANT MANAGER) Cholesterol 145 30 - 199 mg/dL [...] 2017. Triglycerides 453(H) <=149 mg/dL [facility] Comment: Interpretive Data Ages < [...] 2017. HDL 22(L) >=40 mg/dL [facility] Comment: Interpretive Data Ages < [...] on 2017. LDL, calculated See Comment <=129 [facility] Comment: Unable to calculate LDL [...] 2023. Non-HDL Cholesterol 123 mg/dL [facility] Comment: Interpretive Data Ages < [...] last revised on 2017. Chol/HDL ratio 7 [facility] Blood 04/10/2024 11:4 1 PM SPA ASSISTANT MANAGER 04/10/2024 11:55 PM SPA ASSISTANT MANAGER us Nicole Boo MD LAB BLOOD ORDERABLES Final Result [facility] One [facility] Department [place] [address] from Last 3 Months or Most Recently Relevant to Health Maintenance
--- OUTSIDE RECORDS SUMMARY | 2024-11-19 01:15 | XMS_ITS | Encounter Summary ---
Author Organization [facility] Address [facility] [place] [address] Care Team Providers Care Manager Environmental Health Name Role Phone Deandre Bojorquez MD Unavailable [phone] Jeff Strickland MD Primary Care Provider [phone] Encounter Details Date Type Department Care Team (Late st Contact Info) Description 03/30/2024 Lab Requisition [facility] MAIN LAB [address] [place] [phone] Alan Davenport MD [facility]1 [facility] OF [place] [address] Social History Tobacco Use Types Packs/Day Years Used Date Smoking Tobacco: Never Smokeless Tobacco: Never Alcohol Use Standard Drinks/Week Comments Not Currently 0 (1 standard drink = 0.6 oz pur e alcohol) socially in past Sex and Gender Information Value Date Recorded Sex Assigned at Male 07/02/2021 2:37 PM CDT Legal Sex Male 10:14 PM DATA EXAMINATION CLERK Gender Identity Male 07/02/2021 2:37 PM [...] 10:00 AM CDT Appointment H IVR [address] [place] [address] Elroy Holcomb MD [address] [place] [address] 2L [place] [address] 11/24/2024 9:05 AM CDT Hospital Encounter [facility] RITO OP [address] [place] [address] Elroy Holcomb MD [address] [place] [address] 2L [place] [address] Surgery General 11/24/2024 9:05 AM CDT - 11/24/2024 11:20 AM CDT Surgery [facility] RITO OP [address] [place] [address] Elroy Holcomb MD [address] [place] [address] 2L [place] [address] Bilateral first toe debridement 12/06/2024 10:40 AM CDT Office Visit [facility] - Endocrinology [address] [place] [address], [place] [address] Marbin Flores MD [address] [facility] DIV OF [place] [address] Niraj Turner MD 1225 [facility] 2L [place] [address] 2025 1:00 PM DATA EXAMINATION CLERK Office Visit [facility] Physician Group - Neurology [address] [place] [address], [place] [address] Becky Wilson MD [address] [place] [phone] Scheduled Procedures Name Priority Associated Diagnoses Date/Ti me IRRIGATION/DEBRIDEMENT WOUND/TISSUE Peripheral artery disease 11/24/2024 9:05 AM CDT AMPUTATION TOE Peripheral artery disease 11/24/2024 9:05 AM CDT documented as of this encounter Procedures Procedure Name Priority Date/Time Associated Diagnosis Comments HOLD HLA SPECIMEN Routine 03/25/2024 2:5 1 PM DATA EXAMINATION CLERK documented in this encounter Results * HOLD HLA SPECIMEN (03/25/2024 2:51 PM DATA EXAMINATION CLERK) Hold HLA Specimen 03/30/2024 4:01 PM DATA EXAMINATION CLERK [facility] ([facility] Comment:The Hold HLA specime n has been received into the lab and will be held for 5 years at 4 degrees. Blood BLOOD SPECIMEN / Unknown 03/25/2024 2:51 PM DATA EXAMINATION CLERK 03/30/2024 2:51 PM DATA EXAMINATION CLERK Alan Davenport MD LAB - BLOOD BANK ORDERABLES F inal Result [facility] ([facility]) [address] [place] [address], [facility] documented in this encounter Visit Diagnoses Not on filedocumented in this encounter Additional Health Concerns Infection Onset Date Last Indicated Resolved Time COVID-19 Under Investigation 09/13/2024 09/13/2024 09/13/2024 6:36 AM CDT documented as of this encounter Care Teams Manager Environmental Health Relationship Specialty Start Date End Date Jeff Strickland MD [address] [place] [address] PCP - General 03/05/18 [place] [address] [place] [address] Orthopedic Surgery 03/28/17 documented as of this encounter
--- OUTSIDE RECORDS SUMMARY | 2024-11-19 01:15 | XMS_ITS ---
Author Organization [facility] Address [facility] [place] [address] Care Team Providers Care Advertising Operations Coordinator Name Role Phone Jeff Strickland MD Primary Care Provider Chan Nicholas MD Unavailable [phone] Alan Mccall MD Unavailable [phone] Pepito Haro MD PhD Unavailable [phone] Solange Guido MD Unavailable [phone] Active Problems Problem Noted Date Diagnosed Date [...] damage Assessment & Plan (03/09/2024 6:25 PM SPRINKLER REPAIR TECHNICIAN): Vision OD trends mild improvement, though still [...] discussed that genetic results would not change coordinator. Given we have exhausted available treatment [...] 03/26/2021 Assessment & Plan (03/26/2021 1:17 PM SPRINKLER REPAIR TECHNICIAN): Enlarged mild sella turcica on a routine [...] units Assessment & Plan (03/26/2021 1:17 PM SPRINKLER REPAIR TECHNICIAN): Chronic, uncontrolled, improving A1c today 7.7 % [...] WNL Assessment & Plan (03/26/2021 1:16 PM SPRINKLER REPAIR TECHNICIAN): Pt currently on Levothyroxine 112 mcg oral [...] 11/18/2018 Assessment & Plan (01/21/2019 2:02 PM SPRINKLER REPAIR TECHNICIAN): Symptomatic. Will request for esophageal manometry. Continue [...] well Assessment & Plan (03/26/2021 1:16 PM SPRINKLER REPAIR TECHNICIAN): On statin therapy Tolerating well Last lipid [...] nephrectomy. 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 [id number] Current Treatment and Therapy Plans No current [...] were not included. Kendall Carl 1955 Referring Motion Picture Actor: Alan Mccall Dialysis Info: NOD GFR 13 Type: Time: (Not currently on dialysis) days Blood Type: O NEG Body mass index is 37.36 kg/m . ALERTS Paratransit Operator: needs to establish Past Medical History: Diagnosis Date Arthropathy RA. Dr Strickland manages. 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 CKD (chronic kidney disease), stage V Community acquired pneumonia 2018 [facility] hospitalized. Diabetes mellitus 20 years. Lantus pen. Esophageal reflux takes med Hypercholesteremia 5-10 yrs meds Hypertension takes meds Hypothyroidism meds 20 years Kidney stones 5-6 years ago had 2 in the same year. Malignancy right kidney 2012 Obstructive sleep apnea 3 years. [facility]. [place] remember doctors name Renal cell [...] support system and appropriate discharge plan. Plan: sill worker to provide supportive services as needed. Patient appears to be a reasonable candidate for transplant from a psychosocial perspective. -Post transplant arrangement forms are needed prior to being listed. -Updated toxicology results needed, per protocol Psychiatric Consult Recommended: No Transplant Flamer Sealer: Joy Tam LCSW RD: 11/09/2019 BMI= 36.2, [...] use my fitness pal or my food horse riding coach or instructor) - Consume no more than 2000 calories a day E-mailed pt's a 2000 calorie, CKD meal plan. Items Still Pending: Clinic, colonoscopy Acute pain of left shoulder 01/25/2019 03/25/2023 Non-cardiac chest pain 11/18/201803/25 Assessment & Plan (01/21/2019 2:02 PM SPRINKLER REPAIR TECHNICIAN): The pain is persistent. The patient described [...] has had extensive cardiac workup by the integration technician including coronary angiogram. He has chest [...]
--- OUTSIDE RECORDS SUMMARY | 2024-11-19 01:15 | XMS_ITS | Encounter Summary ---
Author Organization [facility] Address [facility] [place] [address] Care Team Providers Care Labor Relations Manager Name Role Phone Deandre Bojorquez MD Unavailable [phone] Jeff Strickland MD Primary Care Provider [phone] Encounter Details Date Type Department Care Team (Late st Contact Info) Description 04/29/2024 Lab Requisition [facility] MAIN LAB [address] [place] [id number] Alan Davenport MD [facility] [place] [address] Social History Tobacco Use Types Packs/Day Years Used Date Smoking Tobacco: Never Smokeless Tobacco: Never Alcohol Use Standard Drinks/Week Comments Not Currently 0 (1 standard drink = 0.6 oz pur e alcohol) socially in past Sex and Gender Information Value Date Recorded Sex Assigned at Male 07/02/2021 2:37 PM CDT Legal Sex Male 10:14 PM OPERATING ROOM ASSISTANT Gender Identity Male 07/02/2021 2:37 PM [...] 10:00 AM CDT Appointment H IVR [address] [place] [address] Elroy Holcomb MD [address] [place] [address] 2[address] [place] [address] 11/24/2024 9:05 AM CDT Hospital Encounter [facility] RITO OP [address] [place] [address] Elroy Holcomb MD [address] [place] [address] [address] [place] [address] Surgery General 11/24/2024 9:05 AM CDT - 11/24/2024 11:20 AM CDT Surgery [facility] RITO OP [address] [place] [address] Elroy Holcomb MD [address] [place] [address] 2[address] [place] [address] Bilateral first toe debridement 12/06/2024 10:40 AM CDT Office Visit [facility] - Endocrinology [address] [place] [address], [place] [address] Marbin Flores MD [address] [facility] DIV OF [place] [address] Niraj Turner MD 1225 [facility] 2L [place] [address] 2025 1:00 PM OPERATING ROOM ASSISTANT Office Visit [facility] - Neurology [address] [place] [address], [place] [address] Becky Wilson MD [address] [place] [phone] Scheduled Procedures Name Priority Associated Diagnoses Date/Ti [...] Hold HLA Specimen 04/29/2024 3:02 PM CDT [facility] Comment:The Hold HLA specime n has been received into the lab and will be held for 5 years at 4 degrees. Blood BLOOD SPECIMEN / Unknown 04/27/2024 1:48 PM CDT 04/29/2024 1:49 PM CDT Alan Davenport MD LAB - BLOOD BANK ORDERABLES F inal Result [facility] ([facility]) [address] documented in this encounter Visit Diagnoses Not on filedocumented in this encounter Additional Health Concerns Infection Onset Date Last Indicated Resolved Time COVID-19 Under Investigation 09/13/2024 09/13/2024 09/13/2024 6:36 AM CDT documented as of this encounter Care Teams Labor Relations Manager Relationship Specialty Start Date End Date Jeff Strickland MD [address] [place] [address] PCP - General 03/05/18 [place] [address] [place] [address] Orthopedic Surgery 03/28/17 documented as of this encounter
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
--- OUTSIDE RECORDS SUMMARY | 2024-11-19 01:15 | XMS_ITS | Encounter Summary ---
Author Organization [facility] Address [address] [place] [place] [address] Care Team Providers Care Sort Line Name Role Phone Deandre Bojorquez MD Unavailable Jeff Strickland MD Primary Care Provider [phone] Encounter Details Date Type Department Care Team (Late st Contact Info) Description 11/12/2024 Orders Only [facility] SURGERY [address] [place] [address] Griffin Rodriguez MD [address] [facility] DIV OF [facility] [address] [place] [phone] Social History Tobacco Use Types Packs/Day Years [...] Recorded Patient Health Questionnaire-2 Score 6 10/05/2024 [facility] - Occupational [...] PM CDT Legal Sex Male 10:14 PM PROTOTYPE ASSEMBLER ELECTRONICS Gender Identity Male 07/02/2021 2:37 PM CDT [...] 10:00 AM CDT Appointment [facility] IV[facility] [address] [place] [address] Elroy Holcomb MD [address] [place] [address] 2L [place] [address] 11/24/2024 9:05 AM CDT Hospital Encounter [facility] RITO OP [address] [place] [address] Elroy Holcomb MD [address] [place] [address] 2[address] [place] [address] Surgery General 11/24/2024 9:05 AM CDT - 11/24/2024 11:20 AM CDT Surgery [facility] RITO OP [address] [place] [address] Elroy Holcomb MD [address] [place] [address] 2L [place] [address] Bilateral first toe debridement 12/06/2024 10:40 AM CDT Office Visit [facility] - Endocrinology [address] [place] [address], [place] [address] Marbin Flores MD [address] [facility] DIV [place] [address] Niraj Turner MD [address] [facility] [address]L [place] [address] 2025 1:00 PM PROTOTYPE ASSEMBLER ELECTRONICS Office Visit [facility] - Neurology [address] [place] [address] [address] Becky Wilson MD [facility] [place] [phone] Scheduled Procedures Name Priority Associated Diagnoses Date/Ti me IRRIGATION/DEBRIDEMENT WOUND/TISSUE Peripheral artery disease 11/24/2024 9:05 AM CDT AMPUTATION TOE Peripheral artery disease 11/24/2024 9:05 AM CDT documented as of this encounter Visit Diagnoses Not on filedocumented in this encounter Care Teams Sort Line Relationship Specialty Start Date End Date Jeff Strickland MD [address] [place] [address] PCP - General 03/05/18 [place] [address] [place] [address] Orthopedic Surgery 03/28/17 documented as of this encounter
[2024-11-19 01:27] VITALS: BP 111/64; PULSE 61; RESP 16; TEMP 36.8; O2SAT 100
--- NOTE | 2024-11-19 01:41 | ED.HA ---
HPI - Headache General Chief Complaint: Headache Stated Complaint: headache/eye pain Time Seen by Provider: 11/19/24 01:39 Source: patient Limitations: no limitations History of Present Illness HPI Narrative: Patient presents with bilateral forehead pain and left eye pain. States his eye feels puffy. No pain at his temples or jaw claudication. No photophobia or phonophobia. Legally blind and has had surgery in this eye multiple times. 3rd visit to the ED for the same in the past day or two. States he has a pterygyium. He is limited from taking very many medications for this because he reports they cause brain fog. Has an appointment with an eye doctor Friday, MAYRA versus Janeen. Took a hydrocodone as well as 650mg additional tylenol 1 hour prior to arrival. Reports these symptoms keep him from being able to sleep. His inability to sleep is a big complaint. No flashes/floaters. States he occasionally sees double and has blurred vision. Had CT 11/18. History of ESRD on daily dialysis, has an appointment with his nephorologist Dr Mccall today. On plavix but no other anticoagulation Related Data Home Medications ?Medication ?Instructions ?Recorded ?Confirmed ?Last Taken ?Type aspirin 81 mg tablet,delayed 81 mg PO HS 02/01/19 11/11/24 08/04/24 History release (Sami Low Dose Aspirin) vit C 250 mg-vit E 200 unit-zinc 1 tablet PO Q12H 02/01/19 11/11/24 08/05/24 History 12.5 mg-copper 1 [id number] tablet (ICaps AREDS2 (copper citrate)) cholecalciferol (vitamin D3) 125 125 mcg PO DAILY 10/01/22 11/11/24 08/05/24 History mcg (5,000 unit) tablet (Vitamin D3) atorvastatin 80 mg tablet 80 mg PO HS 09/02/23 11/11/24 08/04/24 History folic acid 0.8 mg-vit B comp with 800 tablet PO DAILY 04/03/24 11/11/24 08/05/24 History [id number]-mppr-oalbznr D3 2,000 unit tablet (Dialyvite 800-Ultra D) insulin aspart U-100 100 unit/mL 1 sliding scale dose subcut TID 04/03/24 11/11/24 08/05/24 History (3 mL) subcutaneous pen (Novolog FlexPen U-100 Insulin aspart) insulin glargine 100 unit/mL (3 35 unit subcut HS 04/03/24 11/11/24 08/04/24 History mL) subcutaneous pen (Basaglar KwikPen U-100 Insulin) lisinopril 20 mg tablet 20 mg PO BID 04/21/24 11/11/24 08/05/24 History blood-glucose transmitter (Dexcom 04/23/24 11/11/24 Unknown History G6 Transmitter device) carvedilol 25 mg tablet 25 mg PO BID 06/17/24 11/11/24 08/05/24 History tamsulosin 0.4 mg capsule 0.4 mg PO HS 06/17/24 11/11/24 08/04/24 History clopidogrel 75 mg tablet 75 mg PO HS 07/25/24 11/11/24 08/04/24 History furosemide 80 mg tablet 160 mg PO BID 09/23/24 11/11/24 Unknown History midodrine 2.5 mg tablet 2.5 mg PO BID 11/09/24 11/11/24 Unknown History potassium chloride 20 mEq 20 meq PO DAILY 11/09/24 11/11/24 Unknown History tablet,extended release (K-Tab) Allergies Allergy/AdvReac Type Severity Reaction Status Date / Time oxycodone AdvReac Unknown Hallucinati Verified 11/18/24 14:07 [facility] Past Medical History Medical History Brain fog Dementia Hypertensive heart disease with heart failure Chronic diarrhea Family history of colon cancer in father Chronic ethmoidal sinusitis Nasal congestion Bilateral impacted cerumen Allergic rhinitis Chronic sinusitis Chronic recurrent sinusitis Hypertensive CHF C. difficile colitis Arthritis Kidney stones Benign prostatic hyperplasia Coronary artery disease End-stage renal disease on peritoneal dialysis Obstructive sleep apnea Insulin dependent type 2 diabetes mellitus Renal cell carcinoma Status post partial left nephrectomy. Dyslipidemia Clostridium difficile infection Gastroesophageal reflux disease Depression with anxiety Hypothyroidism Cirrhosis Pituitary tumor Status post resection. Anemia Chronic diastolic (congestive) heart failure Hypertension Surgical History Surgical History History of open reduction and internal fixation (ORIF) procedure (11/2022) Screw fixation of sternal fracture. History of colonoscopy with polypectomy History of umbilical hernia repair History of inguinal hernia repair History of coronary artery stent placement History of cardiac catheterization (08/2020) Stent x2 to the LAD. History of arthroplasty of right knee History of cataract extraction History of pituitary surgery (11/2021) History of partial nephrectomy Partial left nephrectomy for renal cell carcinoma. History of cholecystectomy (2007) Family History Family History Mother Aneurysm Hypertension Cerebrovascular accident Heart murmur Father Carcinoma of colon Social History Social History Social History: Surrogate medical decision maker: Harriet Carl, spouse. Code status: Full code. Smoking status: Never smoker Second hand tobacco smoke exposure: No Alcohol intake: never Alcohol use details: rare, holidays Substance use: never Substance use type: does not use Do You Feel Safe in your Home?: Yes Lack of Transportation: No Lack of Food: Never True Current Housing: I Have Housing Concerned About Future Housing: No Difficulty Paying Gas/Electric Bills: No Difficulty Paying for Meds: No Currently Unemployed: No Education: Trade/Vocational Certificate Difficulty w/ Childcare or Family Care: No Living arrangements: with family Additional living arrangements comments: Lives with spouse in [place]. Occupation/Education: retired Additional occupation/education comments: [employer]. Spiritual care concerns: No Agree to blood products: Yes Exam Narrative: GENERAL: Chronically ill-appearing, well-nourished, and in no acute distress. HEAD: Normocephalic, atraumatic. EYES: Non injected, non icteric. Pterygium extending to the border of the iris in left eye. EOMI without nystagmus. No gaze palsy. Sleidel flurosceien testing unremarkable. Slit lamp without further concerning etiology identified. PERRL . No identifiable corneal abrasion. ENT: Nares clear, no rhinorrhea or epistaxis. Gross auditory acuity intact. NECK: Supple. No meningismus. CHEST: Speaking in full sentences. No respiratory distress. HEART: Regular rate and rhythm. . ABDOMEN: Obese but Soft, nondistended. Not peritoneal EXTREMITIES: Normal range of motion. SKIN: Warm, dry, no rash. NEURO: No focal deficits. Alert and oriented. Answering questions. Following commands. Normal speech without aphasia or dysarthria. PSYCH: Normal mood and affect. Course Vital Signs Vital signs: Vital Signs Temperature 98.3 F 11/19/24 01:27 Pulse Rate 61 11/19/24 01:27 Respiratory Rate 16 11/19/24 01:27 Blood Pressure 111/64 11/19/24 01:27 Pulse Oximetry 100 11/19/24 01:27 Oxygen Delivery Room Air 11/19/24 01:27 Temperature 98.3 F 11/19/24 01:27 Pulse Rate 74 11/19/24 04:04 Respiratory Rate 21 H 11/19/24 04:04 Blood Pressure 119/95 H 11/19/24 04:04 Pulse Oximetry 100 11/19/24 04:04 Oxygen Delivery Room Air 11/19/24 01:27 MDM - Headache MDM Narrative Medical decision making narrative: Patient presents with a frontal forehead headache bilaterally as well as a feeling like his left eye is puffy. Third visit in the past day or so for the same. Legally blind and has had multiple surgeries on the eye, though [facility] previously reported. In the emergency department they are afebrile with vital signs within normal limits. Patient is refusing visual acuity testing, either handheld or distance. This limits ability to assist in aiding in a diagnosis. He did have no contrast CT brain performed 11/18 16:11. Patient declines CTA brain/carotid imaging, stating it takes too long for results to come back and he had this scan a few weeks ago. Discussed that things might have changed and that we already have labs from the past 24 hours but that yes, we are relying on [facility] for CT interpretation at this hour. After obtaining the patient's history and performing a physical exam, the headache is most likely due to benign etiology. The neurological examination is non-focal, there are no high-risk features on history, vital signs are stable, and the patient is non-toxic appearing. The Ddx for the patient's headache is tension headache, migraine, or other headache of non-emergent etiology. Unlikely SAH: headache is non-thunderclap. Headache is non maximal at onset Unlikely subdural/epidural hematoma: no history of trauma, no anticoagulation Unlikely meningitis: afebrile, no meningismus, no photophobia Unlikely temporal arteritis: No tenderness in temporal area or jaw claudication Unlikely acute angle glaucoma: PERRL Unlikely carbon monoxide poisoning: family member with him does not seem to have symptoms The patient's headache was treated symptomatically with 500cc IV fluids, ketorolac (1 times dose, acknowledge his poor kidney function but also on dialysis), benadryl, compazine; magnesium. Upon reevaluation, he reports the pain is better. The tetracaine helps so additional gtt used. Given a one time dose of dexamethasone to try to reduce recurrent/bounceback headache. Discharged with strict return precautions and instructions to follow up. Has appointment with account manager b2b later today and has an eye appointment Friday though it was unclear whetehr with [facility] or [facility]. Given Rx for magnesium oxide and acetaminophen. Differential Diagnosis Differential diagnosis: Likely other (glaucoma, scleritis, optic neuritis; ocular migraine) Medical Records Attestation: I reviewed the patient's medical records. Medical records narrative: CT brain w/o contrast from 11/18/24 reviewed: Impression: 1. No acute infarct or hemorrhage. Nonspecific scattered foci of calcification that may reflect sequelae of previous infection. Outpatient contrast-enhanced MRI recommended Discharge Plan Discharge Clinical Impression: Headache, Eye problem, ESRD on peritoneal dialysis, Pterygium of left eye Patient Disposition: Home Condition: Stable Instructions: Antibiotic Form, Pterygium (ED), Blurred Vision (ED), Eye Pain (ED), End Stage Kidney Disease (ED), General Headache (ED) Additional Instructions: Keep your upcoming appointment with your eye doctor currently scheduled. Acetaminophen/Tylenol (maximum 4000 mg per day) is safe to take but remember that each [place] contains 325mg so take that into account so you don't accidentally overdose. Also keep your upcoming appointment with your account manager b2b. Some people find magnesium to be helpful for headaches; you received some in your IV. Additional oral pills have been prescribed. Also follow up with your primary care physician. Patient Language: Danish Prescriptions: New acetaminophen 650 mg tablet extended release 650 mg PO Q8H PRN (Reason: pain) Qty: 30 0RF magnesium oxide 400 mg magnesium tablet 400 mg PO DAILY Qty: 30 0RF No Action aspirin [Sami Low Dose Aspirin] 81 mg Tablet,Delayed Release (Dr/Ec) 81 mg PO HS ICaps AREDS2 (copper citrate) 250 mg-200 unit -12.5 mg-1 mg Tablet 1 tablet PO Q12H (DME) Dexcom G6 Transmitter Device See Rx Instructions .Route Rx Instructions: As directed gabapentin 100 mg tablet 100 mg PO BID Qty: 60 1RF lanthanum 1,000 mg tablet,chewable 1,000 mg PO TID Qty: 1 0RF Rx Instructions: administer with food; chew thoroughly before swallowing furosemide 80 mg tablet 160 mg PO BID lisinopril 20 mg tablet 20 mg PO BID pantoprazole 40 mg tablet,delayed release (DR/EC) 40 mg PO QAM Qty: 90 3RF midodrine 2.5 mg tablet 2.5 mg PO BID Rx Instructions: do not give last dose of day after 6PM or within 4 hrs of bedtime potassium chloride [K-Tab] 20 mEq tablet extended release 20 meq PO DAILY donepezil [Aricept] 5 mg tablet 5 mg PO QHS Qty: 90 1RF Rx Instructions: increase to 2 tablets after 1 month escitalopram oxalate [Lexapro] 10 mg tablet 10 mg PO DAILY Qty: 30 3RF famotidine 20 mg tablet 20 mg PO DAILY Qty: 30 0RF ondansetron 4 mg tablet,disintegrating 4 mg PO Q8H PRN (Reason: nausea and vomiting) Qty: 8 0RF cholecalciferol (vitamin D3) [Vitamin D3] 125 mcg (5,000 unit) Tablet 125 mcg PO DAILY atorvastatin 80 mg tablet 80 mg PO HS carvedilol 25 mg tablet 25 mg PO BID tamsulosin 0.4 mg capsule 0.4 mg PO HS Dialyvite 800-Ultra D 0.8-2,000 mg-unit tablet 800 tablet PO DAILY insulin aspart U-100 [Novolog FlexPen U-100 Insulin] 100 unit/mL (3 mL) insulin pen 1 sliding scale dose subcut TID Patient Comments: PATIENT TAKES 5 UNITS WITH MEALS SCHEDULED AND GOES UP TO 15 UNITS IF IT GETS TO 300 insulin glargine [Basaglar KwikPen U-100 Insulin] 100 unit/mL (3 mL) insulin pen 35 unit subcut HS Patient Comments: 40 UNITS IN MORNING clopidogrel 75 mg tablet 75 mg PO HS artificial tears(hypromellose) 0.3 % drops 1 drp LEFT EYE QID PRN (Reason: dry eyes) Qty: 30 0RF hydrocodone-acetaminophen 5-325 mg tablet 1 tablet PO Q6H PRN (Reason: pain) Qty: 30 0RF levothyroxine 112 mcg tablet 112 mcg PO DAILY Qty: 90 2RF Follow-up/Referrals: Jeff Strickland MD [Primary Care Provider, Family Practice] Alan Mccall MD [Physician, Nephrology] Stand Alone Forms: Work/School Release IP Time of Disposition: 04:18
--- OUTSIDE RECORDS SUMMARY | 2024-11-19 01:47 | XMS_ITS | Encounter Summary ---
Author Organization [facility] Address [facility] [place] [address] Care Team Providers Care Lamination Spinner Name Role Phone Deandre Bojorquez MD Unavailable [phone] Jeff Strickland MD Primary Care Provider [phone] Encounter Details Date Type Department Care Team (Late st Contact Info) Description 05/29/2023 Lab Requisition [facility] [address] [place] [id number] Alan Davenport MD [facility] [place] [address] Social History Tobacco Use Types Packs/Day Years Used Date Smoking Tobacco: Never Smokeless Tobacco: Never Alcohol Use Standard Drinks/Week Comments Not Currently 0 (1 standard drink = 0.6 oz pur e alcohol) socially in past Sex and Gender Information Value Date Recorded Sex Assigned at Male 07/02/2021 2:37 PM CDT Legal Sex Male 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 Gender Identity Male 07/02/2021 2:37 PM [...] 10:00 AM CDT Appointment H IVR [address] [place] [address] Elroy Holcomb MD [address] [place] [address] 2L DIV [place] [address] 11/24/2024 9:05 AM CDT Hospital Encounter [facility] [address] [place] [address] Elroy Holcomb MD [address] [place] [address] 2[address] [place] [address] Surgery General 11/24/2024 9:05 AM CDT - 11/24/2024 11:20 AM CDT Surgery [facility] [address] [place] [address] Elroy Holcomb MD [address] [place] [address] 2[address] [place] [address] Bilateral first toe debridement 12/06/2024 10:40 AM CDT Office Visit [facility] - Endocrinology [address] [place] [address], [place] [phone] Marbin Flores MD [address] [facility] DIV OF ABD [place] [address] Niraj Turner MD [address] [facility] 2L [place] [address] 2025 1:00 PM RETURN CHECKER Office Visit [facility] - Neurology [address] [place] [address], [place] [phone] Becky Wilson MD [address] [place] [phone] Scheduled Procedures Name Priority Associated Diagnoses Date/Ti [...] Hold HLA Specimen 05/29/2023 10:30 AM CDT [facility] Comment:The Hold HLA specime n has been received into the lab and will be held for 5 years at 4 degrees. Blood BLOOD SPECIMEN / Unknown 05/21/2023 9:24 AM CDT 05/29/2023 9:24 AM CDT Alan Davenport MD LAB - BLOOD BANK ORDERABLES F inal Result [facility] ([facility]) [address] documented in this encounter Visit Diagnoses Not on filedocumented in this encounter Additional Health Concerns Infection Onset Date Last Indicated Resolved Time COVID-19 Under Investigation 09/13/2024 09/13/2024 09/13/2024 6:36 AM CDT documented as of this encounter Care Teams Lamination Spinner Relationship Specialty Start Date End Date Jeff Strickland MD [address] [place] [address] PCP - General 03/05/18 [place] [address] [place] [id number] Orthopedic Surgery 03/28/17 documented as of this encounter
--- OUTSIDE RECORDS SUMMARY | 2024-11-19 01:47 | XMS_ITS | Encounter Summary ---
Author Organization [facility] Address [facility] [place] [address] Care Team Providers Care Patient Services Specialist Name Role Phone Deandre Bojorquez MD Unavailable [phone] Jeff Strickland MD Primary Care Provider Encounter Details Date Type Department Care Team (Late st Contact Info) Description 09/30/2023 Lab Requisition [facility] [address] [place] [phone] Alan Davenport MD [facility] [place] [address] Social History Tobacco Use Types Packs/Day Years Used Date Smoking Tobacco: Never Smokeless Tobacco: Never Alcohol Use Standard Drinks/Week Comments Not Currently 0 (1 standard drink = 0.6 oz pur e alcohol) socially in past Sex and Gender Information Value Date Recorded Sex Assigned at Male 07/02/2021 2:37 PM CDT 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 Male 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 Gender Identity Male 07/02/2021 2:37 PM [...] 10:00 AM CDT Appointment H IVR [address] [place] [address] Elroy Holcomb MD [address] [place] [address] 2L [place] [address] 11/24/2024 9:05 AM CDT Hospital Encounter [facility] [address] [place] [address] Elroy Holcomb MD [address] [place] [address] 2L [place] [address] Surgery General 11/24/2024 9:05 AM CDT - 11/24/2024 11:20 AM CDT Surgery [facility] [address] [place] [address] Elroy Holcomb MD [address] [place] [address] 2L [place] [address] Bilateral first toe debridement 12/06/2024 10:40 AM CDT Office Visit [facility] - Endocrinology [address] [place] [address], [place] [phone] Marbin Flores MD [address] [facility] DIV [place] [address] Niraj Turner MD [address] [facility] 2L [place] [address] 2025 1:00 PM INSULATION WORKER Office Visit [facility] - Neurology [address] [place] [address] [phone] Becky Wilson MD [address] [place] [phone] Scheduled Procedures Name Priority Associated Diagnoses Date/Ti [...] HLA Specimen 09/30/2023 4:32 PM CDT [facility] Comment:The Hold HLA specime n has been received into the lab and will be held for 5 years at 4 degrees. Blood BLOOD SPECIMEN / Unknown 09/24/2023 3:27 PM CDT 09/30/2023 3:27 PM CDT Alan Davenport MD LAB - BLOOD BANK ORDERABLES F inal Result [facility] ([facility]) [address] documented in this encounter Visit Diagnoses Not on filedocumented in this encounter Additional Health Concerns Infection Onset Date Last Indicated Resolved Time COVID-19 Under Investigation 09/13/2024 09/13/2024 09/13/2024 6:36 AM CDT documented as of this encounter Care Teams Patient Services Specialist Relationship Specialty Start Date End Date Jeff Strickland MD [address] [place] [address] PCP - General 03/05/18 [place] [address] [place] [id number] Orthopedic Surgery 03/28/17 documented as of this encounter
--- OUTSIDE RECORDS SUMMARY | 2024-11-19 01:47 | XMS_ITS | Clinical Summary ---
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 09/01/2024 2:18 PM CDT Abnormal stress test Dyspnea on exertion Pre-kidney transplant, listed Coronary artery disease with angina pectoris, unspecified vessel or lesion type, unspecified whether mil[place]acs or transplanted heart Abnormal findings on cardiac catheterization GLUCOSE - POINT OF CARE Routine 09/01/2024 10:00 AM CDT CBC W/O DIFFERENTIAL ANDIE 09/01/2024 9:57 AM CDT Coronary artery disease with angina pectoris, unspecified vessel or lesion type, unspecified whether mil[place]acs or transplanted heart Abnormal findings on cardiac catheterization BASIC METABOLIC PANEL (CALCIUM TOTAL) ANDIE 09/01/2024 9:57 AM CDT Coronary artery disease with angina pectoris, unspecified vessel or lesion type, unspecified whether mil[place]acs or transplanted heart Abnormal findings on cardiac [...] SHABNAM on CPAP Coronary artery disease involving mille lacs coronary artery of mille lacs heart, unspecified whether angina present from Last 3 Months or Most Recently Relevant to Health Maintenance Results * IR Angiogram Bilateral Leg (11/12/2024 9:06 AM CDT) Anatomical Region Laterality Modality Lower Extremity X-Ray Angiograph y 11/12/2024 9:47 AM CDT Impressions 11/12/2024 3:38 PM CDT IMPRESSION: Left lower extremity angiogram with patent ZIGZAG STITCHER, SFA with areas of < 50% stenosis, patent TP trunk with occlusions in the peroneal and PT shortly after origin, with single vessel runoff to the foot via the AT with occlusion in the DP in the foot. Right lower extremity angiogram with patent ZIGZAG STITCHER, SFA, and TP trunk with an occluded [...] Owusu 11/12/2024 9:47 AM > Dictated by Ore Miner I, Elroy Holcomb MD have personally reviewed [...] monitored moderate sedation ATTENDING: Elroy Holcomb MD PAPERHANGER APPRENTICE: Griffin Rodriguez MD; Elroy Owusu MD ANESTHESIA: [...] exchanges this was upsized for a 5 Wolof sheath. A guidewire and omniflush catheter were [...] evaluation, please review the evaluation forms in [facility]. For details on monitored clinical parameters during the intra-service sedation time, please review the procedure nurse documentation in [facility]. Procedure Note Elroy Holcomb MD - [...] monitored moderate sedation ATTENDING: Elroy Holcomb MD PAPERHANGER APPRENTICE: Griffin Rodriguez MD; Elroy Owusu MD ANESTHESIA: [...] of exchanges thiswas upsized for a 5 Wolof sheath. A guidewire and omniflush catheter werethen [...] evaluation, please review the evaluation forms in [facility]. For details on monitored clinical parameters during the intra-service sedation time, please review the procedure nurse documentation in [facility]. IMPRESSION: Left lower extremity angiogram with patent ZIGZAG STITCHER, SFA with areas of < 50% stenosis, patent TP trunk with occlusions in the peroneal and PT shortly after origin, with single vessel runoff to the foot via the AT with occlusion in the DP in the foot. Right lower extremity angiogram with patent ZIGZAG STITCHER, SFA, and TP trunk with an occluded AT distally, andocclusion in peroneal at level of ankle, and multifocal areas of stenosis in thePT which appears occluded at the level of the ankle. Successful deploymentof 5 Fr Mynx control closure device. Total fluoroscopy time of 4.2min. Total contrast usage of 60mL > Dictated by Elroy Owusu 11/12/2024 9:47 AM > Dictated by Ore Miner I, Elroy Holcomb MD have personally reviewed and interpreted this examination/study. > Interpreting Provider: Elroy Holcomb MD on 11/12/2024 3:38 PM us Elroy Holcomb MD IR ORDERABLES Final Resu lt * (ABNORMAL) BASIC METABOLIC PANEL (CALCIUM TOTAL) (11/12/2024 7:11 AM CDT) Only the most recent of6 resultswithin the time period is included. BUN 28(H) 7 - 26 mg/dL 11/12/2024 7:59 AM CDT [facility] Creatinine 7.33(H) 0.71 - 1.16 mg/dL 11/12/2024 7:59 AM CDT [facility] Sodium 138 136 - 145 mmol/L 11/12/2024 7:59 AM CDT [facility] Potassium 3.5 3.5 - 4.5 mmol/L 11/12/2024 7:59 AM [facility] Chloride 97(L) 98 - 107 mmol/L 11/12/2024 7:59 AM [facility] CO2 25 22 - 29 mmol/L 11/12/2024 7:59 AM [facility] Glucose 164(H) 70 - 99 mg/dL 11/12/2024 7:59 AM [facility] Calcium 7.8(L) 8.4 - 10.2 mg/dL 11/12/2024 7:59 AM [facility] Anion Gap 16 6 - 16 11/12/2024 7:59 AM [facility] BUN/Creatinine Ratio 4(L) 7 - 23 11/12/2024 7:59 AM [facility] Osmolality Calculated 295 275 - 295 mOsm/kg 11/12/2024 7:59 AM [facility] eGFR by CKD-EPI 8(L) >=90 mL/min/1.7 3 m2 11/12/2024 7:59 AM [facility] Comment:Estimated Glomerular Filtration Rate (eGFR) calculated using the CKD-EPI Creatinine Equation (2020), per the National Kidney Foundation and [place] [employer] Nephrology recommendations. Blood BLOOD SPECIMEN / Unknown Lab Venipuncture / Unknown 11/12/2024 7:11 AM CDT 11/12/2024 7:44 AM CDT Elroy Holcomb MD LAB - CHEMISTRY ORDERABLES Final Result [facility] [address] [place] [address], [facility] [phone] * (ABNORMAL) GLUCOSE - POINT OF CARE (11/12/2024 7:05 AM CDT) Only the most recent of54 resultswithin the time period is included. Glucose WB/POC 193(H) 70 - 99 mg/dL 11/12/2024 7:06 AM [facility] Specimen Type Venous 11/12/2024 7:06 AM [facility] Blood BLOOD SPECIMEN / Unknown 11/12/2024 7:05 AM CDT 11/12/2024 7:06 AM CDT us Elroy Holcomb MD LAB - POINT OF CARE ORDERA BLES Final Result Performing Organization Address City/[facility]/ZIP Co de Phone Number [place] [id number] [place] [address], [place] [phone] * CARDIAC EKG ORDER (10/29/2024 4:31 PM [...] 71(H) <=35 ng/L 10/28/2024 3:13 AM CDT [facility] Delta Troponin I HS 10/28/2024 3:13 AM CDT [facility] Comment:Delta value intentio tito not calculated. Baseline to 1 hour specimen collection interval exceeded. Blood BLOOD SPECIMEN / Unknown Venipuncture / Unknown 10/28/2024 2:31 AM CDT 10/28/2024 2:37 AM CDT us Savanna Mcfarlane MD LAB - CHEMISTRY ORDERABLES Fi nal Result [address] [address], [place] [phone] * LACTIC ACID BLOOD REFLEX TO REPEAT (10/28/2024 2:31 AM CDT) Only the most recent of5 resultswithin the time period is included. Lactic Acid-Stat 1.9 <=2.0 mmol/L 10/28/2024 3:06 AM CDT [facility] Blood BLOOD SPECIMEN / Unknown Venipuncture / Unknown 10/28/2024 2:31 AM CDT 10/28/2024 2:37 AM CDT us Savanna Mcfarlane MD LAB - CHEMISTRY ORDERABLES [facility] Result [facility] [address] [place] [address], [facility] [phone] * XR Chest 2Vw (10/27/2024 11:58 PM CDT) Only the most recent of4 resultswithin the time period is included. Anatomical Region Laterality Modality Chest Digital Radiogra phy 10/28/2024 12:0 2 AM CDT Narrative 10/28/2024 3:32 AM CDT PROCEDURE: XR CHEST 2VW, DATE/TIME OF EXAM: 10/27/2024 11:58 PM, LOCATION [facility] INDICATION: R07.9: Chest pain, unspecified type [...] > Dictated by Branden Jha MD, (residential property manager). > Dictated by Ore Miner I, Blake Plasencia MD have personally reviewed and interpreted this examination/study. > Interpreting Provider: Blake Plasencia MD on 10/28/2024 3:32 AM Procedure Note Blake Plasencia MD - 10/28/2024 PROCEDURE: XR CHEST 2VW, DATE/TIME OF EXAM: 10/27/2024 11:58 PM, LOCATION [facility] INDICATION: R07.9: Chest pain, unspecified type [...] > Dictated by Branden Jha MD, (residential property manager). > Dictated by Ore Miner I, Blake Plasencia MD have personally reviewed and interpreted this examination/study. > Interpreting Provider: Blake Plasencia MD on 10/28/2024 3:32 AM Savanna Mcfarlane MD DIAGNOSTIC IMAGING ORDERABLES Final Result * (ABNORMAL) TROPONIN-I HIGH SENSITIVE BASELINE + 1HR (10/27/2024 11:53 PM CDT) Only the most recent of8 resultswithin the time period is included. [facility] Troponin I High Sensitive 72(H) <=35 ng/L 10/28/2024 12:49 AM [facility] Blood BLOOD SPECIMEN / Unknown Venipuncture / Unknown 10/27/2024 11:53 PM CDT 10/28/2024 12:12 AM CDT Savanna Mcfarlane MD LAB - CHEMISTRY ORDERABLES Fi nal Result [address] [address], [facility] [phone] * (ABNORMAL) CBC W AUTO DIFFERENTIAL (10/27/2024 11:53 PM CDT) Only the most recent of11 resultswithin the time period is included. [facility] WBC 7.8 4.0 - 10.7 x10E9/L 10/28/2024 12:26 AM [facility] RBC Count 3.31(L) 4.30 - 5.80 x10E12/L 10/28/2024 12:26 AM [facility] Hemoglobin 9.0(L) 13.3 - 17.5 g/dL 10/28/2024 12:26 AM [facility] Hematocrit 27.9(L) 38.7 - 51.1 % 10/28/2024 12:26 AM [facility] MCV 84.3 80.0 - 98.0 fL 10/28/2024 12:26 AM [facility] MCH 27.2 26.7 - 33.6 pg 10/28/2024 12:26 AM [facility] MCHC 32.3 31.7 - 36.3 g/dL 10/28/2024 12:26 AM [facility] RDW-CV 15.9(H) 11.3 - 14.8 % 10/28/2024 12:26 AM [facility] Platelet Count 187 150 - 420 x10E9/L 10/28/2024 12:26 AM [facility] MPV 10.2 7.8 - 11.4 fL 10/28/2024 12:26 AM [facility] Neutrophil % 67.0 41.0 - 74.0 % 10/28/2024 12:26 AM [facility] Lymphocyte % 16.4(L) 17.0 - 47.0 % 10/28/2024 12:26 AM [facility] Monocyte % 14.0(H) 3.0 - 11.0 % 10/28/2024 12:26 AM [facility] Eosinophil % 1.9 0.0 - 7.0 % 10/28/2024 12:26 AM [facility] Basophil % 0.1 0.0 - 1.6 % 10/28/2024 12:26 AM [facility] Immature Granulocytes % 0.6 0.0 - 1.0 % 10/28/2024 12:26 AM [facility] Neutrophil Absolute 5.23 1.60 - 7.50 x10E9/L 10/28/2024 12:26 AM [facility] Lymphocyte Absolute 1.28 1.00 - 4.40 x10E9/L 10/28/2024 12:26 AM [facility] Monocyte Absolute 1.09(H) 0.15 - 1.00 x10E9/L 10/28/2024 12:26 AM [facility] Eosinophil Absolute 0.15 0.00 - 0.60 x10E9/L 10/28/2024 12:26 AM [facility] Basophil Absolute 0.01 0.00 - 0.13 x10E9/L 10/28/2024 12:26 AM [facility] Blood BLOOD SPECIMEN / Unknown Venipuncture / Unknown 10/27/2024 11:53 PM CDT 10/28/2024 12:13 AM CDT us Savanna Mcfarlane MD LAB - HEMATOLOGY ORDERABLES F inal Result [facility] [address] [place] [address], [facility] [phone] * (ABNORMAL) COMPREHENSIVE METABOLIC PANEL (10/27/2024 11:53 PM CDT) Only the most recent of13 resultswithin the time period is included. BUN 34(H) 7 - 26 mg/dL 10/28/2024 12:45 AM [facility] Creatinine 7.86(H) 0.71 - 1.16 mg/dL 10/28/2024 12:45 AM [facility] Sodium 132(L) 136 - 145 mmol/L 10/28/2024 12:45 AM [facility] Potassium 3.5 3.5 - 4.5 mmol/L 10/28/2024 12:45 AM [facility] Chloride 95(L) 98 - 107 mmol/L 10/28/2024 12:45 AM [facility] CO2 25 22 - 29 mmol/L 10/28/2024 12:45 AM [facility] Glucose 104(H) 70 - 99 mg/dL 10/28/2024 12:45 AM [facility] Calcium 8.5 8.4 - 10.2 mg/dL 10/28/2024 12:45 AM [facility] Protein Total 5.6(L) 6.0 - 8.3 g/dL 10/28/2024 12:45 AM [facility] Albumin 2.2(L) 3.4 - 5.0 g/dL 10/28/2024 12:45 AM [facility] Bilirubin Total 0.3 0.2 - 1.2 mg/dL 10/28/2024 12:45 AM [facility] Alkaline Phosphatase 104 40 - 150 U/L 10/28/2024 12:45 AM [facility] ALT 56(H) 5 - 55 U/L 10/28/2024 12:45 AM [facility] AST 48(H) 5 - 34 U/L 10/28/2024 12:45 AM [facility] Anion Gap 12 6 - 16 10/28/2024 12:45 AM [facility] BUN/Creatinine Ratio 4(L) 7 - 23 10/28/2024 12:45 AM [facility] Osmolality Calculated 282 275 - 295 mOsm/kg 10/28/2024 12:45 AM [facility] Albumin/Globulin Ratio 0.6(L) 1.1 - 2.3 10/28/2024 12:45 AM [facility] eGFR by CKD-EPI 7(L) >=90 mL/min/1.7 3 m2 10/28/2024 12:45 AM [facility] Comment:Estimated Glomerular Filtration Rate (eGFR) calculated using the CKD-EPI Creatinine Equation (2020), per the National Kidney Foundation and [place] [employer] of Nephrology recommendations. Blood BLOOD SPECIMEN / Unknown Venipuncture / Unknown 10/27/2024 11:53 PM CDT 10/28/2024 12:12 AM CDT us Savanna Mcfarlane MD LAB - CHEMISTRY ORDERABLES Fi nal Result [facility] [address] [place] [phone] [phone] * LIPASE BLOOD (10/27/2024 11:53 PM CDT) Only the most recent of3 resultswithin the time period is included. Lipase 41 8 - 78 U/L 10/28/2024 12:45 AM [facility] Blood BLOOD SPECIMEN / Unknown Venipuncture / Unknown 10/27/2024 11:53 PM CDT 10/28/2024 12:12 AM CDT Narrative [facility] - 10/28/2024 12:45 AM CDT Lipase results from the Matthew Alinity analyzer may not be comparable with other methodologies. Savanna Mcfarlane MD LAB - CHEMISTRY ORDERABLES Fi nal Result [facility] [address] [place] [address], [facility] [phone] * HLA ANTIBODY SCREEN LUM CLASS 2 SAB (10/27/2024 2:40 PM CDT) Pathologist [facility] % PRA 0 11/04/2024 4:03 PM CDT [facility] ([facility]) Class 2 LUM SAB Moderate Risk DQ6 11/04/2024 4:03 PM CDT [facility] ([facility]) Class 2 SAB Test Date [id number] 11/04/2024 4:03 PM CDT [facility] ([facility]) Comment: Methodology - Luminex Bead-Based Immunoassay. This test was developed and its performance characteristics determined by the [facility]. It has not been cleared or [...] high complexity clinical laboratory testing. CLIA ID# [id number] Performed at: [facility], [address] [place] [id number] Cage Supervisor: Steven Gonzalez, Ph.D., D([facility]), Blood BLOOD SPECIMEN / Unknown No Charge Blood Draw / Unknown 10/27/2024 2:40 PM CDT 11/01/2024 2:41 PM CDT Alan Davenport MD LAB - BLOOD BANK ORDERABLES F inal Result Performing Organization Address [facility]/ZIP Co de Phone Number [facility] ([facility]) [address] [place] [address], [place] * HLA ANTIBODY SCREEN LUM CLASS 1 SAB (10/27/2024 2:40 PM CDT) % PRA 0 11/04/2024 4:03 PM CDT [facility] ([facility]) Class 1 SAB Test Date [id number] 11/04/2024 4:03 PM CDT [facility] ([facility]) Comment: Methodology - Luminex Bead-Based Immunoassay. This test was developed and its performance characteristics determined by the [facility]. It has not been cleared or [...] high complexity clinical laboratory testing. CLIA ID# [id number] Performed at: [facility], [address] [place] [address] Cage Supervisor: Steven Gonzalez, Ph.D., D([facility]), Blood BLOOD SPECIMEN / Unknown No Charge Blood Draw / Unknown 10/27/2024 2:40 PM CDT 11/01/2024 2:41 PM CDT Alan Davenport MD LAB - BLOOD BANK ORDERABLES F inal Result [facility] ([facility]) [address] [place], [place] [address] * (ABNORMAL) PTH INTACT ([facility]) (10/21/2024 1:11 PM CDT) Only the most recent of2 resultswithin the time period is included. PTH Intact 316.8(H) 8.0 - 77.0 pg/mL 10/21/2024 1:56 PM CDT [facility] Blood BLOOD SPECIMEN / Unknown Lab Venipuncture / Unknown 10/21/2024 1:11 PM CDT 10/21/2024 1:23 PM CDT Result [facility] Becky Wilson MD LAB - CHEMISTRY ORDERABLES Fin al Result [address] [address], [place] [phone] * LAB MISC TEST (10/21/2024 1:11 PM CDT) Pathologist [facility] Test Name PHOSPHO-TAU 217 PLASMA 10/25/2024 12:29 PM CDT [facility] Test Result See Scanned Report 10/25/2024 12:29 PM CDT [facility] Comment Ref Lab [place] 10/25/2024 12:29 PM CDT [facility] Blood BLOOD SPECIMEN / Unknown Lab Venipuncture / Unknown 10/21/2024 1:11 PM CDT 10/21/2024 1:15 PM CDT Becky Wilson MD LAB SEND OUT Final Result Performing Organization Address City/[facility] Co de Phone Number [facility] [employer] [address] [place] [address] * MAGNESIUM BLOOD (10/21/2024 1:11 PM CDT) Only the most recent of14 resultswithin the time period is included. [facility] Magnesium 1.6 1.6 - 2.6 mg/dL 10/21/2024 1:49 PM CDT [facility] Blood BLOOD SPECIMEN / Unknown Lab Venipuncture / Unknown 10/21/2024 1:11 PM CDT 10/21/2024 1:20 PM CDT Result [facility] Becky Wilson MD LAB - CHEMISTRY ORDERABLES Fin al Result Performing Organization Address City/[facility]/ZIP Co de Phone Number [address] [address], [place] [phone] * AMMONIA (10/21/2024 1:11 PM CDT) Pathologist [facility] Ammonia 30 <=72 umol/L 10/21/2024 1:32 PM CDT [facility] Blood BLOOD SPECIMEN / Unknown Lab Venipuncture / Unknown 10/21/2024 1:11 PM CDT 10/21/2024 1:15 PM CDT Becky Wilson MD LAB - CHEMISTRY ORDERABLES Fin al Result [address] [address], [facility] [phone] * CT Head Wo Contrast (10/19/2024 3:03 PM CDT) Only the most recent of4 resultswithin the time period is included. Anatomical Region Laterality Modality Head Computed Tomogra phy 10/19/2024 3:11 PM CDT Impressions 10/19/2024 3:41 PM CDT IMPRESSION: 1.No acute intracranial hemorrhage, territorial infarct, or significant mass effect. Report dictated by Saroj Linda MD, MD (residential property manager). > Dictated by Ore Miner I, Raymundo Hanson MD have personally reviewed [...] dictated by Saroj Linda MD, MD (residential property manager). > Dictated by Ore Miner I, Raymundo Hanson MD have personally reviewed [...] [facility] MUSE QRS Duration ms 96 ms [facility] MUSE Q-T Interval ms 494 ms [facility] MUSE QTC Calculation (Bezet) 509 ms [facility] MUSE Calculated P Chaplin 69 degrees [facility] MUSE Calculated R Chaplin -63 degrees [facility] MUSE Calculated T Chaplin -90 degrees [facility] MUSE Interpretation EKG NORMAL SINUS RHYTHM LEFT ANTERIOR FASCICULAR BLOCK T WAVE ABNORMALITY, CONSIDER INFEROLATERAL ISCHEMIA PROLONGED QT ABNORMAL ECG . Confirmed by DOUG CAGLE MD ([id number]) on 10/23/2024 11:38:28 PM [facility] MUSE 10/19/2024 2:21 PM CDT 10/23/2024 11:38 PM CDT Alfreda Smith PA-C ECG ORDERABLES Edite d Result - Final [facility] MUSE * (ABNORMAL) B-TYPE NATRIURETIC PEPTIDE (10/17/2024 7:33 PM CDT) Only the most recent of3 resultswithin the time period is included. BNP 471(H) <100 pg/mL 10/17/2024 10:07 PM CDT [facility] Comment: A decision threshold of 100 pg/mL [...] PM CDT 10/17/2024 7:56 PM CDT Malinda Casrto PA-C LAB - CHEMISTRY ORDERABLES Fi nal Result [facility] [address] [place] [address], [facility] [phone] * XR CHEST 1VW PORTABLE (10/09/2024 7:27 PM CDT) Only the most recent of2 resultswithin the time period is included. Anatomical Region Laterality Modality Chest Digital Radiogra phy 10/09/2024 10:4 9 PM CDT Narrative 10/10/2024 1:17 AM CDT PROCEDURE: XR CHEST 1VW PORTABLE, DATE/TIME OF EXAM: 10/09/2024 7:27 PM, LOCATION [facility] INDICATION: R06.02: Short of breath on exertion ADDITIONAL CLINICAL INFORMATION: Ordering Provider Reason For Exam: r/o effusion, pneumonia Technologist Note: Additional: COMPARISON: Chest x-ray from 10/07/2024. FINDINGS/IMPRESSION: There is no focal consolidation, pleural effusion, or pneumothorax.The cardiomediastinal silhouette is normal. No displaced fractures identified. Hardware projecting over thoracic spine. > Dictated by Otis Bocanegra MD (residential property manager). > Dictated by Ore Miner I, Blake Plasencia MD have personally reviewed and interpreted this examination/study. > Interpreting Provider: Blake Plasencia MD on 10/10/2024 1:17 AM Procedure Note Blake Plasencia MD - 10/10/2024 PROCEDURE: XR CHEST 1VW PORTABLE, DATE/TIME OF EXAM: 10/09/2024 7:27PM, LOCATION [facility] INDICATION: R06.02: Short of breath on exertion ADDITIONAL CLINICAL INFORMATION: Ordering Provider Reason For Exam: r/o effusion, pneumonia Technologist Note: Additional: COMPARISON: Chest x-ray from 10/07/2024. FINDINGS/IMPRESSION: There is no focal consolidation, pleural effusion, or pneumothorax.The cardiomediastinal silhouette is normal. No displaced fracturesidentified. Hardware projecting over thoracic spine. > Dictated by Otis Bocanegra MD (residential property manager). > Dictated by Ore Miner I, Blake Plasencia MD have personally reviewed and interpreted this examination/study. > Interpreting Provider: Blake Plasencia MD on 10/10/2024 1:17 AM Anjali Colemanivet Avelar SUPERVISOR [employer]ATE [employer]PLITTING-RN DOCUMENT IMPROVEMENT SPECIALIST DIAGNOSTIC IMAGING O RDERABLES Final Result * (ABNORMAL) BLOOD GASES ABBEY + COOX PANEL (10/09/2024 4:39 PM T) Only the most recent of2 resultswithin the time period is included. pH Venous 7.41 7.32 - 7.42 pH 10/09/2024 5:04 PM [facility] pO2 Venous 34(L) 35 - 40 mmHg 10/09/2024 5:04 PM [facility] pCO2 Venous 44 40 - 50 mmHg 10/09/2024 5:04 PM [facility] HCO3 Venous 27.9 20 - 30 mmol/L 10/09/2024 5:04 PM [facility] Base Excess Venous 2.9(H) -2.0 - 2.0 mmol/L 10/09/2024 5:04 PM [facility] Oxyhemoglobin Venous 56.8 % 09/18 5:04 PM [facility] Comment:A^Absorbance Error Deoxyhemoglobin (HHB) Venous % 42.6 % 10/09/2024 5:04 PM [facility] Comment:A^Absorbance Error Methemoglobin <0.8 0.0 - 2.0 % 10/09/2024 5:04 PM [facility] Comment:A^Absorbance Error Carboxyhemoglobin 0.6 0.0 - 2.0 % 2024 5:04 PM [facility] Comment:A^Absorbance Error O2 Content Venous 7.7 Interpret within clinical context ml/dL 10/09/2024 5:04 PM [facility] Hemoglobin by COOX 9.6(L) 12.0 - 17.6 g/dL 10/09/2024 5:04 PM [facility] Comment:A^Absorbance Error O2 Saturation Venous 57(L) >=70 % 09/18 5:04 PM [facility] Comment:A^Absorbance Error FI O2 Mixed Venous 21.0 % 2024 5:04 PM [facility] Blood BLOOD SPECIMEN / Unknown Venipuncture / Unknown 10/09/2024 4:39 PM CDT 10/09/2024 4:56 PM CDT Narrative [facility] - 10/09/2024 5:04 PM CDT Carboxyhemoglobin Normal Concentration: Non-smokers: 0-2%; Smokers: 0-9%; Toxic: >20% [facility] - BLOOD GASES OR DERABLES Final Result Performing Organization Address City/[facility]/ZIP Co de Phone Number [address] [address], [facility] [phone] * PHOSPHORUS BLOOD (10/09/2024 4:39 PM CDT) Only the most recent of8 resultswithin the time period is included. Phosphorus 4.9 2.8 - 5.1 mg/dL 10/09/2024 5:29 PM CDT [facility] Blood BLOOD SPECIMEN / Unknown Venipuncture / Unknown 10/09/2024 4:39 PM CDT 10/09/2024 4:58 PM CDT Anjali [facility]ar [facility] - CHEMISTRY ORDE RABLES Final Result Performing Organization Address [facility]/ZIP Co de Phone Number [address] [address], [facility] [phone] * (ABNORMAL) URINALYSIS REFLEX MICROSCOPIC REFLEX CULTURE (10/07/2024 6:16 PM CDT) Color UA Yellow Yellow, Straw 10/07/2024 6:39 PM CDT [facility] Clarity UA Ex. Turbid(A) Clear 10/07/2024 6:39 PM CDT [facility] Glucose UA Normal Normal 10/07/2024 6:39 PM CDT [facility] Bilirubin UA Negative Negative 10/07/2024 6:39 PM CDT [facility] Ketone UA Negative Negative 10/07/2024 6:39 PM CDT [facility] Specific [place] UA 1.015 1.005 - 1.030 10/07/2024 6:39 PM [facility] Blood UA 3+(A) Negative 10/07/2024 6:39 PM [facility] pH UA 6.0 5.0 - 8.0 10/07/2024 6:39 PM [facility] Protein UA 2+(A) Negative 10/07/2024 6:39 PM [facility] Urobilinogen UA Normal Normal mg/dL 10/07/2024 6:39 PM [facility] Nitrite UA Negative Negative 10/07/2024 6:39 PM [facility] Leukocyte Esterase UA 500 MOLLY/uL(A) Negative 10/07/2024 6:39 PM [facility] RBC UA 51-100(A) 0 - 5 # /hpf 10/07/2024 6:39 PM [facility] WBC UA >100(A) 0 - 5 # /hpf 10/07/2024 6:39 PM [facility] Bacteria UA 2+(A) None Seen 10/07/2024 6:39 PM [facility] Squamous Epithelial Cells None Seen 0 - 5 /hpf 10/07/2024 6:39 PM [facility] Transitional Epithelial Cell UA 0-2(A) None Seen /HPF 10/07/2024 6:39 PM [facility] Budding Yeast Moderate(A) None seen /hpf 10/07/2024 6:39 PM [facility] Reflex Status Culture to follow 10/07/2024 6:39 PM [facility] Urine URINE SPECIMEN OBTAINED VIA INDWELLING URINARY CATHETER / Unknown Collection / Unknown 10/07/2024 6:16 PM CDT 10/07/2024 6:19 PM [facility] - 10/07/2024 6:39 PM CDT Richard Sylvester MD LAB - URINALYSIS ORDERABLES Kenna haider Result [facility] [address] [place] [address], [facility] [phone] * (ABNORMAL) CULTURE URINE (10/07/2024 6:16 PM CDT) Culture Urine 50,000-100,000 CFU/mL Klebsiella pneumoniae(A) MUSHTAQ 10/09/2024 5:54 AM CDT [facility] MICRO[facility]OLOG[facility] Urine URINE SPECIMEN OBTAINED VIA INDWELLING URINARY CATHETER / Unknown Collection / Unknown 10/07/2024 6:16 PM CDT 10/07/2024 6:19 PM CDT Narrative [facility] MICROBIOLOGY - 10/09/2024 5:54 AM CDT Organism [...] NETWORK MICROBIOLOGY [address] [place] [address], [facility] [phone] * VAS Arterial Multilevel Le (10/05/2024 12:24 PM CDT) Anatomical Region Laterality Modality Intravascular Ul trasound 10/05/2024 11:3 4 AM CDT Narrative Procedure Note Elroy Holcomb MD - 10/05/2024 us Guy Messina MD VASCULAR LAB ORDERABLES Edit ed Result - Final * (ABNORMAL) HEMOGLOBIN A1C (09/25/2024 5:06 AM CDT) Hemoglobin A1c 5.8(H) <=5.6 % 09/25/2024 8:19 AM CDT [facility] Estimated Average Glucose 120 mg/dL 09/25/2024 8:19 AM CDT [facility] Comment: HbA1c Interpretation: Normal : < 5.7% Pre-diabetes: 5.7-6.4% Diabetes: Equal to or greater than 6.5% Test results diagnostic of diabetes should be repeated for confirmation. Treatment target values recommended by ADA and other clinical organizations should be used to evaluate metabolic control in patients. Reference: [place] Diabetes Association, Standards of Care in Diabetes [...] LAB - CHEMISTRY ORDERABLES F inal Result [facility] [address] [place] [address], [place] [phone] * (ABNORMAL) RENAL FUNCTION PANEL (09/24/2024 7:53 PM CDT) Only the most recent of3 resultswithin the time period is included. BUN 42(H) 7 - 26 mg/dL 09/24/2024 8:47 PM [facility] Creatinine 12.22(H) 0.71 - 1.16 mg/dL 09/24/2024 8:47 PM [facility] Sodium 136 136 - 145 mmol/L 09/24/2024 8:47 PM [facility] Potassium 3.9 3.5 - 4.5 mmol/L 09/24/2024 8:47 PM [facility] Chloride 97(L) 98 - 107 mmol/L 09/24/2024 8:47 PM [facility] CO2 24 22 - 29 mmol/L 09/24/2024 8:47 PM [facility] Glucose 93 70 - 99 mg/dL 09/24/2024 8:47 PM [facility] Albumin 1.8(L) 3.4 - 5.0 g/dL 09/24/2024 8:47 PM [facility] Calcium 8.4 8.4 - 10.2 mg/dL 09/24/2024 8:47 PM [facility] Phosphorus 7.0(H) 2.8 - 5.1 mg/dL 09/24/2024 8:47 PM [facility] Anion Gap 15 6 - 16 09/24/2024 8:47 PM [facility] BUN/Creatinine Ratio 3(L) 7 - 23 09/24/2024 8:47 PM [facility] Osmolality Calculated 292 275 - 295 mOsm/kg 09/24/2024 8:47 PM [facility] eGFR by CKD-EPI 4(L) >=90 mL/min/1.7 3 m2 09/24/2024 8:47 PM [facility] Comment:Estimated Glomerular Filtration Rate (eGFR) calculated using the CKD-EPI Creatinine Equation (2020), per the National Kidney Foundation and [place] Society of Nephrology recommendations. Blood BLOOD SPECIMEN / Unknown Lab Venipuncture / Unknown 09/24/2024 7:53 PM CDT 09/24/2024 8:15 PM CDT Guy Messina MD LAB - CHEMISTRY ORDERABLES F inal Result [address] [address], [facility] [phone] * TSH REFLEX FREE T4 (09/24/2024 12:02 PM CDT) TSH 1.567 0.350 - 4.940 uIU/mL 09/24/2024 12:57 PM CDT [facility] Blood BLOOD SPECIMEN / Unknown 09/24/2024 12:02 PM CDT 09/24/2024 12:18 PM CDT Alexis Rodrigez III, MD LAB - CHEMISTRY ORDERAB LES Final Result Performing Organization Address [facility]/ZIP Co de Phone Number [address] [address], [facility] [phone] * (ABNORMAL) VITAMIN B1 (09/24/2024 12:02 PM CDT) Vitamin B1 Whole Blood 205(H) 70 - 180 nmol/L 09/27/2024 7:16 PM CDT [place] ([facility]) Comment: INTERPRETIVE INFORMATION: Vitamin B1, Whole Blood This assay measures the concentration of thiamine diphosphate (TDP), the primary active form of vitamin B1. Approximately 90 percent of vitamin B1 present in whole blood is TDP. Thiamine and thiamine monophosphate, which comprise the remaining 10 percent, are not measured. This test was developed and its performance characteristics determined by [employer]. It has not been cleared or approved by the [place] Food and Drug Administration. This test was performed in a CLIA certified laboratory and is intended for clinical purposes. Performed By: [employer] [facility] [address] [place] [address] Retail Cashier Associate: Mk Egan MD, PhD CLIA Number: [id number] Blood BLOOD SPECIMEN / Unknown 09/24/2024 12:02 PM CDT 09/24/2024 12:11 PM CDT us Alexis Rodrigez III, MD LAB - CHEMISTRY ORDERAB LES Final Result Performing Organization Address City/[facility]/ZIP Co de Phone Number [facility]) [address] [place] [address], [facility] * (ABNORMAL) VITAMIN B12 (09/24/2024 12:02 PM CDT) Vitamin B12 1,151(H) 213 - 816 pg/mL 09/24/2024 12:57 PM CDT [facility] Blood BLOOD SPECIMEN / Unknown 09/24/2024 12:02 PM CDT 09/24/2024 12:18 PM CDT us Alexis Rodrigez III, MD LAB - CHEMISTRY ORDERAB LES Final Result Performing Organization Address [facility]/ZIP Co de Phone Number [address] [address], [place] [phone] * (ABNORMAL) TROPONIN-I HIGH SENSITIVE (09/24/2024 5:08 AM CDT) Troponin I High Sensitive 83(H) <=35 ng/L 09/24/2024 6:10 AM CDT [facility] Blood BLOOD SPECIMEN / Unknown Lab Venipuncture / Unknown 09/24/2024 5:08 AM CDT 09/24/2024 5:28 AM CDT us Jennifer Winn MD LAB - CHEMISTRY ORDERABLES F inal Result Performing Organization Address City/[facility]/ZIP Co de Phone Number [address] [address], [place] [phone] * CT Lumbar Spine Wo Contrast (09/23/2024 [...] Report dictated by Branden Jha MD (residential property manager) 09/23/2024 5:45 PM. > Dictated by Ore Miner I, Jana Clark MD have personally reviewed and interpreted this examination/study. > Interpreting Provider: Jana Clark MD on 09/23/2024 6:29 PM Narrative 09/23/2024 6:29 PM CDT PROCEDURE: CT HEAD WO CONTRAST, CT LUMBAR SPINE WO CONTRAST, CT THORACIC SPINE WO CONTRAST, CT CERVICAL SPINE WO CONTRAST, DATE/TIME OF EXAM: 09/23/2024 5:32 PM, LOCATION [facility] INDICATION: W19.XXXA: Fall, initial encounter R41.82: Altered mental status, unspecified altered mental status type ADDITIONAL CLINICAL INFORMATION: Ordering Provider Reason For Exam: r/o bleed, fx (accession [id number]), r/o fx (accession [id number]), r/o fx (accession [id number]), r/o fx (accession [id number]) Technologist Note: None. Additional: 69 year old [...] DATE/TIME OF EXAM: 09/23/2024 5:32 PM, LOCATION [facility] INDICATION: W19.XXXA: Fall, initial encounter R41.82: Altered mental status, unspecified altered mental status type ADDITIONAL CLINICAL INFORMATION: Ordering Provider Reason For Exam: r/o bleed, fx (accession [id number]), r/o fx (accession [id number]), r/o fx (accession [id number]), r/o fx (accession [id number]) Technologist Note: None. Additional: 69 year old [...] Report dictated by Branden Jha MD (residential property manager) 09/23/2024 5:45 PM. > Dictated by Ore Miner I, Jana Clark MD have personally reviewed [...] Report dictated by Branden Jha MD (residential property manager) 09/23/2024 5:45 PM. > Dictated by Ore Miner I, Jana Clark MD have personally reviewed and interpreted this examination/study. > Interpreting Provider: Jana Clark MD on 09/23/2024 6:29 PM Narrative 09/23/2024 6:29 PM CDT PROCEDURE: CT HEAD WO CONTRAST, CT LUMBAR SPINE WO CONTRAST, CT THORACIC SPINE WO CONTRAST, CT CERVICAL SPINE WO CONTRAST, DATE/TIME OF EXAM: 09/23/2024 5:32 PM, LOCATION [facility] INDICATION: W19.XXXA: Fall, initial encounter R41.82: Altered mental status, unspecified altered mental status type ADDITIONAL CLINICAL INFORMATION: Ordering Provider Reason For Exam: r/o bleed, fx (accession [id number]), r/o fx (accession [id number]), r/o fx (accession [id number]), r/o fx (accession [id number]) Technologist Note: None. Additional: 69 year old [...] DATE/TIME OF EXAM: 09/23/2024 5:32 PM, LOCATION [facility] INDICATION: W19.XXXA: Fall, initial encounter R41.82: Altered mental status, unspecified altered mental status type ADDITIONAL CLINICAL INFORMATION: Ordering Provider Reason For Exam: r/o bleed, fx (accession [id number]), r/o fx (accession [id number]), r/o fx (accession [id number]), r/o fx (accession [id number]) Technologist Note: None. Additional: 69 year old [...] Report dictated by Branden Jha MD (residential property manager) 09/23/2024 5:45 PM. > Dictated by Ore Miner I, Jana Clark MD have personally reviewed [...] Report dictated by Branden Jha MD (residential property manager) 09/23/2024 5:45 PM. > Dictated by Ore Miner I, Jana Clark MD have personally reviewed and interpreted this examination/study. > Interpreting Provider: Jana Clark MD on 09/23/2024 6:29 PM Narrative 09/23/2024 6:29 PM CDT PROCEDURE: CT HEAD WO CONTRAST, CT LUMBAR SPINE WO CONTRAST, CT THORACIC SPINE WO CONTRAST, CT CERVICAL SPINE WO CONTRAST, DATE/TIME OF EXAM: 09/23/2024 5:32 PM, LOCATION [facility] INDICATION: W19.XXXA: Fall, initial encounter R41.82: Altered mental status, unspecified altered mental status type ADDITIONAL CLINICAL INFORMATION: Ordering Provider Reason For Exam: r/o bleed, fx (accession [id number]), r/o fx (accession [id number]), r/o fx (accession [id number]), r/o fx (accession [id number]) Technologist Note: None. Additional: 69 year old [...] DATE/TIME OF EXAM: 09/23/2024 5:32 PM, LOCATION [facility] INDICATION: W19.XXXA: Fall, initial encounter R41.82: Altered mental status, unspecified altered mental status type ADDITIONAL CLINICAL INFORMATION: Ordering Provider Reason For Exam: r/o bleed, fx (accession [id number]), r/o fx (accession [id number]), r/o fx (accession [id number]), r/o fx (accession [id number]) Technologist Note: None. Additional: 69 year old [...] Report dictated by Branden Jha MD (residential property manager) 09/23/2024 5:45 PM. > Dictated by Ore Miner I, Jana Clark MD have personally reviewed [...] Report dictated by Branden Jha MD, (residential property manager). > Dictated by Ore Miner I, Nicole Bernabe MD have personally reviewed and interpreted this examination/study. > Interpreting Provider: Nicole Bernabe MD on 09/24/2024 9:17 AM Narrative 09/24/2024 9:17 AM CDT PROCEDURE: XR FOOT LEFT 3VW OR MORE, DATE/TIME OF EXAM: 09/23/2024 5:34 PM, LOCATION [facility] INDICATION: W19.XXXA: Fall, initial encounter ADDITIONAL [...] MORE, DATE/TIME OF EXAM: 09/23/2024 5:34PM, LOCATION [facility] INDICATION: W19.XXXA: Fall, initial encounter ADDITIONAL [...] Report dictated by Branden Jha MD, (residential property manager). > Dictated by Ore Miner I, Nicole Bernabe MD have personally reviewed and interpreted this examination/study. > Interpreting Provider: Nicole Bernabe MD on 09/24/2024 9:17 AM us Moon Lewis PA-C DIAGNOSTIC IMAGING ORDERABLES F inal Result * (ABNORMAL) C-REACTIVE PROTEIN (09/23/2024 4:52 PM CDT) Only the most recent of2 resultswithin the time period is included. C-Reactive Protein 1.6(H) <=0.5 mg/dL 09/23/2024 5:42 PM CDT [facility] Blood BLOOD SPECIMEN / Unknown Venipuncture / Unknown 09/23/2024 4:52 PM CDT 09/23/2024 4:56 PM CDT us Moon Lewis PA-C LAB - CHEMISTRY ORDERABLES Kenna l Result Performing Organization Address City/[facility]/ZIP Co de Phone Number [address] [address], [facility] [phone] * (ABNORMAL) ERYTHROCYTE SEDIMENTATION RATE (09/23/2024 4:52 PM CDT) Only the most recent of2 resultswithin the time period is included. Erythrocyte Sedimentation Rate Westergren 116(H) 0 - 20 MM/HR 09/23/2024 5:21 PM CDT [facility] Blood BLOOD SPECIMEN / Unknown Venipuncture / Unknown 09/23/2024 4:52 PM CDT 09/23/2024 5:05 PM CDT Moon Lewis PA-C LAB - HEMATOLOGY ORDERABLES Fin al Result Performing Organization Address [facility]/ZIP Co de Phone Number [address] [address], [place] [phone] * (ABNORMAL) DIFFERENTIAL MANUAL (09/23/2024 4:52 PM CDT) Only the most recent of3 resultswithin the time period is included. Neutrophil % 78(H) 41 - 74 % 09/23/2024 5:33 PM CDT [facility] Lymphocyte % 10(L) 17 - 47 % 09/23/2024 5:33 PM CDT [facility] Monocyte % 10 3 - 11 % 09/23/2024 5:33 PM CDT [facility] Eosinophil % 1 0 - 7 % 09/23/2024 5:33 PM CDT [facility] Metamyelocyte % 1(H) 0% % 5:33 PM CDT [facility] Neutrophil Absolute 8.66(H) 1.60 - 7.50 x10E9/L 09/23/2024 5:33 PM CDT [facility] Lymphocyte Absolute 1.11 1.00 - 4.40 x10E9/L 09/23/2024 5:33 PM CDT [facility] Monocyte Absolute 1.11(H) 0.15 - 1.00 x10E9/L 09/23/2024 5:33 PM [facility] Eosinophil Absolute 0.11 0.00 - 0.60 x10E9/L 09/23/2024 5:33 PM [facility] RBC Morphology REVIEWED 09/23/2024 5:33 PM [facility] Microcytosis MODERATE(A) (none) 09/23/2024 5:33 PM [facility] Blood BLOOD SPECIMEN / Unknown Venipuncture / Unknown 09/23/2024 4:52 PM CDT 09/23/2024 5:05 PM CDT Moon Lewis PA-C LAB - HEMATOLOGY ORDERABLES Fin al Result [facility] [address] [place] [address], [facility] [phone] * (ABNORMAL) CBC W/O DIFFERENTIAL (09/16/2024 1:01 AM CDT) Only the most recent of9 resultswithin the time period is included. WBC 9.3 4.0 - 10.7 x10E9/L 09/16/2024 1:43 AM [facility] RBC Count 3.37(L) 4.30 - 5.80 x10E12/L 09/16/2024 1:43 AM [facility] Hemoglobin 9.5(L) 13.3 - 17.5 g/dL 09/16/2024 1:43 AM [facility] Hematocrit 28.3(L) 38.7 - 51.1 % 09/16/2024 1:43 AM [facility] MCV 84.0 80.0 - 98.0 fL 09/16/2024 1:43 AM [facility] MCH 28.2 26.7 - 33.6 pg 09/16/2024 1:43 AM [facility] MCHC 33.6 31.7 - 36.3 g/dL 09/16/2024 1:43 AM [facility] RDW-CV 15.7(H) 11.3 - 14.8 % 09/16/2024 1:43 AM CDT [facility] Platelet Count 205 150 - 420 x10E9/L 09/16/2024 1:43 AM CDT [facility] MPV 10.3 7.8 - 11.4 fL 09/16/2024 1:43 AM CDT [facility] Blood BLOOD SPECIMEN / Unknown Lab Venipuncture / Unknown 09/16/2024 1:01 AM CDT 09/16/2024 1:40 AM CDT us Alexis Rodrigez III, MD LAB - HEMATOLOGY ORDERA BLES Final Result [address] [address], [place] [phone] * VANCOMYCIN LEVEL RANDOM (09/15/2024 4:10 PM CDT) Only the most recent of3 resultswithin the time period is included. Vancomycin Random 31.2 Therapeutic Ranges not established for random specimens ug/mL 09/15/2024 6:00 PM CDT [facility] Blood BLOOD SPECIMEN / Unknown Lab Venipuncture / Unknown 09/15/2024 4:10 PM CDT 09/15/2024 4:51 PM CDT Narrative [facility] - 09/15/2024 6:00 PM CDT See institution protocol. us Aureliano Pierce MD LAB - CHEMISTRY ORDERAB LES Final Result [address] [address], [place] [phone] * LACTIC ACID BLOOD (09/14/2024 3:32 PM CDT) Only the most recent of4 resultswithin the time period is included. Lactic Acid-Stat 2.0 <=2.0 mmol/L 09/14/2024 4:17 PM CDT [facility] Blood BLOOD SPECIMEN / Unknown Lab Venipuncture / Unknown 09/14/2024 3:32 PM CDT 09/14/2024 3:51 PM CDT us Alexis Rodrigez III, MD LAB - CHEMISTRY ORDERAB LES Final Result Performing Organization Address [facility] Co de Phone Number [address] [address], [facility] [phone] * (ABNORMAL) HGB HCT PANEL (09/14/2024 1:24 PM CDT) Only the most recent of2 resultswithin the time period is included. Hemoglobin 8.7(L) 13.3 - 17.5 g/dL 09/14/2024 1:41 PM CDT [facility] Hematocrit 25.6(L) 38.7 - 51.1 % 09/14/2024 1:41 PM CDT [facility] Blood BLOOD SPECIMEN / Unknown Venipuncture / Unknown 09/14/2024 1:24 PM CDT 09/14/2024 1:30 PM CDT us Alexis Rodrigez III, MD LAB - HEMATOLOGY ORDERA BLES Final Result Performing Organization Address [facility] Co de Phone Number [address] [address], [facility] [phone] * PATHOLOGY TISSUE (09/14/2024 11:45 AM CDT) Case Report Surgical Pathology Report Case: [id number] Authorizing Provider: Elroy Holcomb MD Collected: 09/14/2024 11:45 AM Ordering Location: [facility] Received: 09/14/2024 12:47 PM Pathologist: Charmaine Myrick MD Specimen: Toe, Left, Left Great Toe 09/16/2024 11:40 AM CDT [facility] Final Diagnosis Toe, left great, amputation (A): - Skin ulceration and necrosis - Acute osteomyelitis - Bone margin negative for acute inflammation - Skin and soft tissue margin appears viable 09/16/2024 11:40 AM CDT [facility] at 1140 CDT Microscopic Description and Comment Microscopic examination substantiates the diagnosis. 09/16/2024 11:40 AM [facility] Clinical History The patient is a 69-year-old man with first toe dry gangrene and history of PAD. 09/16/2024 11:40 AM [facility] Gross Description The [...] hemorrhage. There are no additional gross lesions. [employer] sections are submitted as follows: A1-skin and soft tissue to resection margin, medial and dorsal surfaces A2-bony resection margin, decalcified A3-partial proximal cross-section with surrounding mummification, decalcified IKD 09/16/2024 11:40 AM [facility] Pathologist Location at [facility] 09/16/2024 11:40 AM [facility] Disclaimer The performance characteristics of all immunohistochemical and indirect immunofluorescence stains (if any) cited in this report were determined by the Histopathology [facility] of [facility]. Some of these tests were developed by [...] the attending (teaching) pathologist. 09/16/2024 11:40 AM [facility] Embedded Images 09/16/2024 11:40 AM [facility] Amputation, Traumatic (Gross Only) (Toe, Left) 09/14/2024 11:45 AM CDT 09/14/2024 12:47 PM CDT Comment:Pre-op diagnosis: Toe gangrene (HCC) [I96] Elroy Holcomb MD LAB - PATHOLOGY/CYTOLOGY O RDERABLES Final Result [facility] [address] [phone] * Peripheral Nerve Block (09/14/2024 10:38 AM [...] fungus isolated MUSHTAQ 10/11/2024 8:05 AM CDT [facility] Fungus Stain No yeast or hyphae seen 10/11/2024 8:05 AM CDT [facility] MICROBIOLOGY Microbiology PERITONEAL DIALYSATE SPECIMEN / Unknown Collection / Unknown 09/13/2024 8:08 PM CDT 09/13/2024 8:10 PM CDT us Alexis Rodrigez III, MD LAB - MICROBIOLOGY PK ZENG Final Result [facility] MICROBIOLOGY [address] [place] [address], [facility] [phone] * DIFFERENTIAL MANUAL FLUID (09/13/2024 8:08 PM CDT) Fluid Source Peritoneal 09/13/2024 9:03 PM [facility] Body Fluid Total Cell Count 100 x10E6/L 09/13/2024 9:03 PM CDT [facility] Neutrophils Fluid Percent 11 % 09/13/2024 9:03 PM T [facility] Lymphocytes Fluid Percent 6 % 09/13/2024 9:03 PM [facility] Macrophages Fluid Percent 79 % 09/13/2024 9:03 PM T [facility] Mesothelial Cells Fluid Percent 4 % 09/13/2024 9:03 PM T [facility] Fluid PERITONEAL FLUID / Unknown Collection / Unknown 09/13/2024 8:08 PM CDT 09/13/2024 8:10 PM CDT Narrative [facility] - 09/13/2024 9:03 PM CDT No reference ranges established for body fluid differential cell counts. The test results must be integrated into the clinical context for interpretation. Alexis Rodrigez III, MD LAB - BODY FLUID ORDERA BLES Final Result [facility] [address] [place] [address], [facility] [phone] * CULTURE FLUID+GRAM STAIN (09/13/2024 8:08 PM CDT) Culture No growth MUSHTAQ 09/17/2024 12:38 AM CDT [facility] MICROBIOLOGY Gram Stain Light Polymorphonuclear cells 09/17/2024 12:38 AM CDT [facility] MICROBIOLOG[facility] Gram Stain No organisms seen 025 12:38 AM CDT [facility] MICROBIOLOGY Other PERITONEAL DIALYSATE SPECIMEN / Unknown Collection / Unknown 09/13/2024 8:08 PM CDT 09/13/2024 8:10 PM CDT Alexis Rodrigez III, MD LAB - MICROBIOLOGY PK ZENG Final Result Performing Organization Address City/[facility]/ZIP Co de Phone Number [facility] MICROBIOLOGY [address] [place] [address], [facility] [phone] * CULTURE ANAEROBE (09/13/2024 8:08 PM CDT) Culture No anaerobic organisms isolated MUSHTAQ 09/19/2024 8:26 AM CDT [facility] MICROBIOLOGY Microbiology PERITONEAL DIALYSATE SPECIMEN / Unknown Collection / Unknown 09/13/2024 8:08 PM CDT 09/13/2024 8:11 PM CDT Alexis Rodrigez III, MD LAB - MICROBIOLOGY PK ZENG Final Result Performing Organization Address City/[facility]/ZIP Co de Phone Number [facility] MICROBIOLOGY [address] [place] [address], [facility] [phone] * CELL COUNT W DIFFERENTIAL FLUID (09/13/2024 8:08 PM CDT) Fluid Source Peritoneal 09/13/2024 9:03 PM CDT [facility] Fluid Appearance CLEAR 09/13/2024 9:03 PM CDT [facility] Fluid Color YELLOW 09/13/2024 9:03 PM CDT [facility] Total Nucleated Cells Fluid 279 Reference Range Not Established x10E6/L 09/13/2024 9:03 PM CDT [facility] RBC Count Fluid <2,000 Reference Range Not Established x10E6/L 09/13/2024 9:03 PM CDT [facility] Fluid PERITONEAL FLUID / Unknown Collection / Unknown 09/13/2024 8:08 PM CDT 09/13/2024 8:10 PM CDT Narrative [facility] - 09/13/2024 9:03 PM CDT No reference ranges established for body fluid cell counts. Any reference ranges provided are derived from published literature. The test results must be integrated into the clinical context for interpretation. us Alexis Rodrigez III, MD LAB - BODY FLUID ORDERA BLES Final Result [address] [address], [facility] [phone] * VAS Bilateral Venous Duplex Le (09/13/2024 4:34 PM CDT) Anatomical Region Laterality Modality Lower Extremity Ultrasound 09/13/2024 4:18 PM CDT Narrative Procedure Note Lalit Castanon MD - 09/13/2024 us Alexis Rodrigez III, MD VASCULAR LAB ORDERABLES Edited Result - Final * SARS-COV-2 (COVID-19) RAPID (09/13/2024 6:02 AM CDT) COVID-19 PCR Not detected Not detected 09/14/19 25 6:36 AM CDT [facility] Microbiology SPECIMEN FROM NASOPHARYNGEAL STRUCTURE / Unknown Collection / Unknown 09/13/2024 6:02 AM CDT 09/13/2024 6:04 AM CDT Narrative [facility] - 09/13/2024 6:36 AM CDT The [...] ORDERABLE S Final Result Performing Organization Address City/State/[facility] Co de Phone Number [facility] [address] [place] [address], [facility] [phone] * TRANSFUSE RED BLOOD CELL LEUKOREDUCED UNIT(S) [...] 08/04/2024. > Dictated by Sera Chowdhury Dr, (residential property manager). Terry Leigh MD have personally reviewed and interpreted this examination/study. > Interpreting Provider: Terry Ramos MD on 09/13/2024 9:42 AM Narrative 09/13/2024 9:42 AM CDT PROCEDURE: CT ANGIO AORTA FOR DISSECTION, DATE/TIME OF EXAM: 09/13/2024 12:28 AM, LOCATION [facility] INDICATION: R10.9: Abdominal pain, unspecified abdominal [...] DATE/TIME OF EXAM: 09/13/2024 12:28 AM, LOCATION [facility] INDICATION: R10.9: Abdominal pain, unspecified abdominal [...] Dictated by Sera Chowdhury Dr, MD (residential property manager). ITerry MD have personally reviewed and interpreted this examination/study. > Interpreting Provider: Terry Ramos MD on 09/13/2024 9:42 AM Yuriy Lopez MD CT ORDERABLES Final Result * PREPARE (CROSSMATCH) RBC UNIT(S), 1 Units (09/12/2024 11:30 PM CDT) Unit Description AS1 LR PRBC [facility] Unit ABO O [facility] Unit Rh NEG [facility] Product Number R43 [facility] Unit Donor # [id number] [facility] Unit Status transfused [facility] Product Code [id number] [facility] Blood Type Barcode 9500 [facility] Expiration Date [id number] S BLOOD BANK LAB Blood Bank BLOOD SPECIMEN / Unknown 09/12/2024 11:30 PM CDT 09/12/2024 11:37 PM CDT Yuriy Lopez MD LAB - BLOOD BANK ORDERABLES Final Result [facility] [address] [place] [address], [facility] [phone] * TYPE + SCREEN PANEL (09/12/2024 11:30 PM CDT) Antibody Screen NEG 12:16 AM CDT [facility] ABO Rh O NEG 09/13/2024 12:16 AM CDT [facility] Blood Bank BLOOD SPECIMEN / Unknown Venipuncture / Unknown 09/12/2024 11:30 PM CDT 09/12/2024 11:37 PM CDT Result [facility] Yuriy Lopez MD LAB - BLOOD BANK ORDERABLES Final Result [facility] [address] [place] [address], [facility] [phone] * CULTURE BLOOD (09/12/2024 10:00 PM CDT) Only the most recent of4 resultswithin the time period is included. Culture No growth day 5 MUSHTAQ 09/18/2024 1:30 AM CDT [facility] MICRO[facility]OLOG[facility] Blood PERIPHERAL BLOOD / Unknown Venipuncture / Unknown 09/12/2024 10:00 PM CDT 09/12/2024 10:21 PM CDT Result [facility] Yuriy Lopez MD LAB - MICROBIOLOGY ORDERABLE S Final Result Performing Organization Address City/[facility]/ZIP Co de Phone Number [facility] MICROBIOLOGY [address] [place] [address], [facility] [phone] * VAS Bilateral Venous Mapping (09/07/2024 2:24 PM CDT) Anatomical Region Laterality Modality Upper Extremity, Lower Extremity Ultrasound 09/07/2024 1:53 PM CDT Narrative Procedure Note Elroy Holcomb MD - 09/08/2024 Result [facility] Allen Wing MD VASCULAR LAB ORDERABLES Edite [...] thickening. Report dictated by Freddie Durham MD, (Ore Miner). I, Junior Hurley MD have personally reviewed [...] thickening. Report dictated by Freddie Durham MD, (Ore Miner). I, Junior Hurley MD have personally reviewed and interpreted this examination/study. > Interpreting Provider: Junior Hurley MD on 56:26 AM us Charmaine Khalil MD CT ORDERABLES Final Result * (ABNORMAL) POTASSIUM WHOLE BLD (09/01/2024 3:54 PM CDT) Potassium Whole Blood 3.1(L) 3.5 - 5.5 mmol/L 09/01/2024 4:05 PM CDT [facility] Blood WHOLE BLOOD SPECIMEN / Unknown Venipuncture / Unknown 09/01/2024 3:54 PM CDT 09/01/2024 3:57 PM CDT Jaqueline Crews SUPERVISOR [employer] SPLITTING-RN DOCUMENT IMPROVEMENT SPECIALIST LAB - CHEMISTRY ORDERABL ES Final Result [address] [address], [facility] [phone] * CCL STAGED PERC CORONARY INTERVENTION, CCL [...] continuing DAPT Cardiology clinic f/u Jaqueline Crews SUPERVISOR [employer]ATE SPLITTING-RN DOCUMENT IMPROVEMENT SPECIALIST CV CARDIAC CATH CUPID GA [facility] Final Result * (ABNORMAL) IRON + TRANSFERRIN PANEL (08/19/2024 1:41 AM CDT) [facility] Iron 40(L) 50 - 175 ug/dL 08/19/2024 2:17 AM CDT [facility] Transferrin 116(L) 174 - 382 mg/dL 08/19/2024 2:17 AM CDT [facility] Transferrin Saturation % 28 16 - 50 % 08/19/2024 2:17 AM [facility] TIBC Calculated 145(L) 240 - 450 ug/dL 08/19/2024 2:17 AM [facility] Blood BLOOD SPECIMEN / Unknown Lab Venipuncture / Unknown 08/19/2024 1:41 AM CDT 08/19/2024 2:01 AM CDT us Hannah Goodman MD LAB - CHEMISTRY ORDERABLES F inal Result Performing Organization Address City/[facility]/ZIP Co de Phone Number [address] [address], [facility] [phone] * (ABNORMAL) FERRITIN (08/19/2024 1:41 AM CDT) Ferritin 560(H) 22 - 275 ng/mL 08/19/2024 2:35 AM CDT [facility] Blood BLOOD SPECIMEN / Unknown Lab Venipuncture / Unknown 08/19/2024 1:41 AM CDT 08/19/2024 2:01 AM CDT us Hannah Goodman MD LAB - CHEMISTRY ORDERABLES F inal Result Performing Organization Address [facility] de Phone Number [address] [address], [facility] [phone] * VITAMIN D 25-HYDROXY (08/19/2024 1:23 AM CDT) Vitamin D, 25 Hydroxy 36.2 30.0 - 80.0 ng/mL 08/19/2024 2:24 AM CDT [facility] Comment: The recommendations for 25-Hydroxy Vitamin [...] LAB - CHEMISTRY ORDERABLES F inal Result [facility] [address] [place] [address], [place] [phone] * HEPATITIS C ANTIBODY (06/16/2024 4:15 PM CDT) Hepatitis C Antibody Non-react sylvie Non-reac tive 06/16/2024 5:50 PM CDT [facility] Comment:Hepatitis C Antibody screen indicates no [...] LAB - CHEMISTRY ORDERABLES Fi nal Result [facility] [address] [place] [address], [place] [phone] from Last 3 Months or Most Recently Relevant to Health Maintenance Insurance [employer] MEDICARE ADV MEDICARE ADV * Guarantor: GRACE INTERIANO Account Type Relation to Patient Date of Phone Billing Address Personal/Family [address] [place], [place] [address] * Guarantor: GRACE INTERIANO Account Type Relation to Patient Date of Phone Billing Address Personal/Family [address] [place] [address] Advance Directives * Full Code (Latest Code [...] 3:16 PM 08/19/2024 4:36 PM Care Teams Clinical Writer Relationship Specialty Start Date End Date Jeff Strickland MD [address] [place] [address] PCP - General 03/05/18 [place] [address] [address] Orthopedic Surgery 03/28/17
--- OUTSIDE RECORDS SUMMARY | 2024-11-19 01:47 | XMS_ITS | Clinical Summary ---
Author Organization [facility] Address [address] [place] [address] Care Team Providers Care Property Claims Adjuster Name Role Phone Jeff Strickland MD Primary [...] mouth daily. Active nystatin-triamc inolone (MYCOLOG II) 251241-0.1 UNIT/GM-% Cream 5 Active ondansetron (ZOFRAN-ODT) 4 [...] 10/29/2024 Telephone [facility] - Cardiology [facility] [address] [place] [address] Suly Smith APRN, RADIOTELEGRAPHIST 10/15/2024 Telephone [facility] Cardiology [facility] [address] [place] [address] Hannah Goodman MD 10/14/2024 2:40 PM CDT Clinical Support [facility] Cardiology [facility] [address] [facility] [place] [phone] [facility] Card[facility] Dressing change (Primary Dx) Discharge [...] st Contact Info) Description 04/11/2025 11:30 AM PASSENGER RELATIONS REPRESENTATIVE Office Visit [facility] - Cardiology - [facility] [address] [place] [address] He Maylin, DO 2 [facility] [place] [address] [address] Health Maintenance Due Date Last Done Comments [...] topic Insurance MEDICARE C [employer] Care Teams Property Claims Adjuster Relationship Specialty Start Date End Date Jeff Strickland MD [address] [place] [address] PCP - General Family Medicine 10/14/24
--- OUTSIDE RECORDS SUMMARY | 2024-11-19 01:47 | XMS_ITS | Encounter Summary ---
Author Organization [facility] Address [facility] [place] [address] Care Team Providers Care Director Appointment Name Role Phone Deandre Bojorquez MD Unavailable [phone] Jeff Strickland MD Primary Care Provider [phone] Encounter Details Date Type Department Care Team (Late st Contact Info) Description 11/21/[address] 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 RITO OP [address] [place] [address] Elroy Holcomb MD [address] [place] [address] 2[address] [place] [address] Surgery General 11/24/2024 9:05 AM CDT - 11/24/2024 11:[address] [facility] [address] [place] [address] Elroy Holcomb MD [address] [place] [address] 2[address] [place] [address] Bilateral first toe debridement 12/06/2024 10:40 AM CDT Office Visit [facility] - Endocrinology [address] [place] [address], [place] [phone] Marbin Flores MD [address] [facility] DIV OF [place]BD [place] [address] Niraj Turner MD [address] [facility] 2L [place] [address] 2025 1:00 PM EXTERIOR DOOR INSTALLER Office Visit [facility] Neurology [address] [place] [address], [place] [address] Becky Wilson MD [address] [place] [phone] Scheduled Procedures Name Priority Associated Diagnoses Date/Ti [...] Hold HLA Specimen 11/21/2023 1:31 PM CDT [facility] Comment:The Hold HLA specime n has been received into the lab and will be held for 5 years at 4 degrees. Blood BLOOD SPECIMEN / Unknown 11/18/2023 12:16 PM CDT 11/21/2023 12:17 PM CDT Alan Davenport MD LAB - BLOOD BANK ORDERABLES F inal Result [facility] ([facility]) [address] documented in this encounter Visit Diagnoses Not on filedocumented in this encounter Additional Health Concerns Infection Onset Date Last Indicated Resolved Time COVID-19 Under Investigation 09/13/2024 09/13/2024 09/13/2024 6:36 AM CDT documented as of this encounter Care Teams Director Appointment Relationship Specialty Start Date End Date Jeff Strickland MD [address] [place] [address] PCP - General 03/05/18 [place] [address] [place] [address] Orthopedic Surgery 03/28/17 documented as of this encounter
--- OUTSIDE RECORDS SUMMARY | 2024-11-19 01:47 | XMS_ITS | Encounter Summary ---
Author Organization [facility] Address [facility] [place] [address] Care Team Providers Care Music Education Adjunct Professor Name Role Phone Deandre Bojorquez MD Unavailable [phone] Jeff Strickland MD Primary Care Provider [phone] Encounter Details Date Type Department Care Team (Late st Contact Info) Description 04/10/2023 Lab Requisition [facility] [address] [place] [address] Alan Davenport MD [facility][note 2]1 [facility] [place] [address] Social History Tobacco Use Types Packs/Day Years Used Date Smoking Tobacco: Never Smokeless Tobacco: Never Alcohol Use Standard Drinks/Week Comments Not Currently 0 (1 standard drink = 0.6 oz pur e alcohol) socially in past Sex and Gender Information Value Date Recorded Sex Assigned at Male 07/02/2021 2:37 PM CDT 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 Gender Identity Male 07/02/2021 2:37 PM [...] 10:00 AM CDT Appointment H IVR [address] [place] [address] Elroy Holcomb MD [address] [place] [address] 2L [place] [address] 11/24/2024 9:05 AM CDT Hospital Encounter [facility] RIT[facility] OP [address] [place] [address] Elroy Holcomb MD [address] [place] [address] 2L [place] [address] Surgery General 11/24/2024 9:05 AM CDT - 11/24/2024 11:20 AM CDT Surgery [facility] RITO OP [address] [place] [address] Elroy Holcomb MD [address] [place] [address] 2L [place] [address] Bilateral first toe debridement 12/06/2024 10:40 AM CDT Office Visit [facility] - Endocrinology [address] [place] [address], [place] [phone] Marbin Flores MD [address] [facility] DIV [place] [address] Niraj Turner MD [address] [facility] 2L [place] [address] 2025 1:00 PM STATISTICAL ANALYST Office Visit [facility] - Neurology [address] [place] [address], [place] [address] Becky Wilson MD [address] [place] [phone] Scheduled Procedures Name Priority Associated Diagnoses Date/Ti me IRRIGATION/DEBRIDEMENT WOUND/TISSUE Peripheral artery disease 11/24/2024 9:05 AM CDT AMPUTATION TOE Peripheral artery disease 11/24/2024 9:05 AM CDT documented as of this encounter Procedures Procedure Name Priority Date/Time Associated Diagnosis Comments HOLD HLA SPECIMEN Routine 04/02/2023 3:0 1 PM STATISTICAL ANALYST documented in this encounter Results * HOLD HLA SPECIMEN (04/02/2023 3:01 PM STATISTICAL ANALYST) Hold HLA Specimen 04/10/2023 4:01 PM STATISTICAL ANALYST [facility]) Comment:The Hold HLA specime n has been received into the lab and will be held for 5 years at 4 degrees. Blood BLOOD SPECIMEN / Unknown 04/02/2023 3:01 PM STATISTICAL ANALYST 04/10/2023 3:01 PM STATISTICAL ANALYST Alan Davenport MD LAB - BLOOD BANK ORDERABLES F inal Result [facility] ([facility]) [address] [place] [address], [facility] documented in this encounter Visit Diagnoses Not on filedocumented in this encounter Additional Health Concerns Infection Onset Date Last Indicated Resolved Time COVID-19 Under Investigation 09/13/2024 09/13/2024 09/13/2024 6:36 AM CDT documented as of this encounter Care Teams Music Education Adjunct Professor Relationship Specialty Start Date End Date Jeff Strickland MD [address] [place] [address] PCP - General 03/05/18 [place] [address] [place] [address] Orthopedic Surgery 03/28/17 documented as of this encounter
--- OUTSIDE RECORDS SUMMARY | 2024-11-19 01:47 | XMS_ITS | Encounter Summary ---
Author Organization [facility] Address [address] [place] [address] Care Team Providers Care Service Support Representative Name Role Phone Deandre Bojorquez MD Unavailable [phone] Jeff Strickland MD Primary Care Provider [phone] Encounter Details Date Type Department Care Team (Late st Contact Info) Description 02/07/2023 Lab Requisition [facility] MAIN LAB [address] [place] [phone] Alan Davenport MD [facility] OF [place] [address] Social History Tobacco Use Types Packs/Day Years Used Date Smoking Tobacco: Never Smokeless Tobacco: Never Alcohol Use Standard Drinks/Week Comments Not Currently 0 (1 standard drink = 0.6 oz pur e alcohol) socially in past Sex and Gender Information Value Date Recorded Sex Assigned at Male 07/02/2021 2:37 PM CDT 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 Gender Identity Male 07/02/2021 2:37 PM [...] 10:00 AM CDT Appointment H IVR [address] [place] [address] Elroy Holcomb MD [address] [place] [address] 2L [place] [address] 11/24/2024 9:05 AM CDT Hospital Encounter [facility] IRTO OP [address] [place] [address] Elroy Holcomb MD [address] [place] [address] 2L [place] [address] Surgery General 11/24/2024 9:05 AM CDT - 11/24/2024 11:20 AM CDT Surgery [facility] RITO OP [address] [place] [address] Elroy Holcomb MD [address] [place] [address] 2L [place] [address] Bilateral first toe debridement 12/06/2024 10:40 AM CDT Office Visit [facility] - Endocrinology [address] [place] [address], [place] [address] Marbin Flores MD [address] [facility] DIV OF ABD [place] [address] Niraj Turner MD 1225 [facility] 2L Div [place] [address] 2025 1:00 PM SALES CLERK Office Visit [facility]ician Group - Neurology [address] [place] [address], [place] [address] Becky Wilson MD [address] [place] [phone] Scheduled Procedures Name Priority Associated Diagnoses Date/Ti me IRRIGATION/DEBRIDEMENT WOUND/TISSUE Peripheral artery disease 11/24/2024 9:05 AM CDT AMPUTATION TOE Peripheral artery disease 11/24/2024 9:05 AM CDT documented as of this encounter Procedures Procedure Name Priority Date/Time Associated Diagnosis Comments HOLD HLA SPECIMEN Routine 2023 7:5 8 AM SALES CLERK documented in this encounter Results * HOLD HLA SPECIMEN (2023 7:58 AM SALES CLERK) Hold HLA Specimen 02/07/2023 9:01 AM SALES CLERK [facility] ([facility]) Comment:The Hold HLA specime n has been received into the lab and will be held for 5 years at 4 degrees. Blood BLOOD SPECIMEN / Unknown 2023 7:58 AM SALES CLERK 02/07/2023 7:59 AM SALES CLERK Alan Davenport MD LAB - BLOOD BANK ORDERABLES F inal Result [facility] ([facility]) [address] [place] [address], [facility] documented in this encounter Visit Diagnoses Not on filedocumented in this encounter Additional Health Concerns Infection Onset Date Last Indicated Resolved Time COVID-19 Under Investigation 09/13/2024 09/13/2024 09/13/2024 6:36 AM CDT documented as of this encounter Care Teams Service Support Representative Relationship Specialty Start Date End Date Jeff Strickland MD [address] [place] [address] PCP - General 03/05/18 [place] [address] [place] [address] Orthopedic Surgery 03/28/17 documented as of this encounter
--- OUTSIDE RECORDS SUMMARY | 2024-11-19 01:47 | XMS_ITS | Encounter Summary ---
Author Organization [facility] Address [address] [place] [address] Phone Care Team Providers Care Wire Tester Name Role Phone Jeff Strickland MD Primary Care Provider Chan Nicholas MD Unavailable [phone] Alan Mccall MD Unavailable [phone] Lorna Lantigua MD Unavailable Juliette Savage RN Unavailable Pepito Haro MD PhD Unavailable Solange Guido MD Unavailable [phone] Letha Gil RN Unavailable Encounter Details Date Type Department Care Team (Late st Contact Info) Description 05/02/2021 Ophth Exam [facility] Medicine Ophthalmology [address] [place] [address] 1st [place] [phone] Corina Ventura MD PhD [address] [address] Social History Tobacco Use Types [...] on file 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 04/08/2023 04/10/2023 07/07/2023 3:06 AM C DT COVID: Suspected 04/10/2024 04/10/2024 04/11/2024 1:24 AM DELIVERY TRUCK DRIVER HEAVY C. difficile suspected 04/11/2024 04/11/202404/11 1:21 PM DELIVERY TRUCK DRIVER HEAVY documented as of this encounter Eye Exam [...] arcade Normal Periphery Normal Normal Care Teams Wire Tester Relationship Specialty Start Date End Date Jeff Strickland MD [address] [address] PCP - General Family Medicine 04/02/18 Chan Nicholas MD [address] [place] [address] [phone] Consulting Physician Gastroenterology 11/24/18 Alan Mccall MD [address] [place] [address] [address] Referring Physician Nephrology 11/24/18 Lorna Lantigua MD [facility] [address] [address] Consulting Physician Cardiology 11/24/18 07/22/23 Juliette Savage, RN [address] [place] [address] Nurse Navigator 06/04/21 03/14/22 Pepito Haro MD PhD [address] [place] [address] Consulting Physician Neurosurgery 12/03/22 Solange Guido MD [address] [facility] [address] [place] [address] Referring Physician Cardiovascular Disease 07/23/23 Letha Gil, RN 4590 [facility] [address] [place] [address] [facility] Outpatient Plant Electrician 04/14/24 04/18/24 documented as of this encounter
--- OUTSIDE RECORDS SUMMARY | 2024-11-19 01:47 | XMS_ITS | Encounter Summary ---
Author Organization [facility] Address [facility] [place] [address] Care Team Providers Care Bag Filler Name Role Phone Deandre Bojorquez MD Unavailable [phone] Jeff Strickland MD Primary Care Provider [phone] Encounter Details Date Type Department Care Team (Late st Contact Info) Description 10/28/2023 Lab Requisition [facility] MAIN LAB [address] [place] [phone] Alan Davenport MD [facility] OF [place] [address] Social History Tobacco Use Types Packs/Day Years Used Date Smoking Tobacco: Never Smokeless Tobacco: Never Alcohol Use Standard Drinks/Week Comments Not Currently 0 (1 standard drink = 0.6 oz pur e alcohol) socially in past Sex and Gender Information Value Date Recorded Sex Assigned at Male 07/02/2021 2:37 PM CDT 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 Gender Identity Male 07/02/2021 2:37 PM CDT [...] 10:00 AM CDT Appointment H IVR [address] [place] [address] Elroy Holcomb MD [address] [place] [address] 2L [place] [address] 11/24/2024 9:05 AM CDT Hospital Encounter [facility] RITO OP [address] [place] [address] Elroy Holcomb MD [address] [place] [address] 2L [place] [address] Surgery General 11/24/2024 9:05 AM CDT - 11/24/2024 11:20 AM CDT Surgery [facility] RITO OP [address] [place] [address] Elroy Holcomb MD [address] [place] [address] 2L [place] [address] Bilateral first toe debridement 12/06/2024 10:40 AM CDT Office Visit [facility] - Endocrinology [address] [place] [address], [place] [address] Marbin Flores MD 1201 [facility] DIV OF [place] [address] Niraj Turner MD 1225 [facility] 2L [place] [address] 2025 1:00 PM WALL COVERING CONTRACTOR Office Visit [facility] Physician Group - Neurology [address] [place] [address], [place] [address] Becky Wilson MD [address] [place] [phone] Scheduled Procedures Name Priority Associated Diagnoses Date/Ti [...] Hold HLA Specimen 10/28/2023 5:00 PM CDT [facility] ([facility]) Comment:The Hold HLA specime n has been received into the lab and will be held for 5 years at 4 degrees. Blood BLOOD SPECIMEN / Unknown 10/22/2023 3:50 PM CDT 10/28/2023 3:50 PM CDT Alan Davenport MD LAB - BLOOD BANK ORDERABLES F inal Result [facility] ([facility]) [address] documented in this encounter Visit Diagnoses Not on filedocumented in this encounter Additional Health Concerns Infection Onset Date Last Indicated Resolved Time COVID-19 Under Investigation 09/13/2024 09/13/2024 09/13/2024 6:36 AM CDT documented as of this encounter Care Teams Bag Filler Relationship Specialty Start Date End Date Jeff Strickland MD [address] [place] [address] PCP - General 03/05/18 [place] [address] [place] [address] Orthopedic Surgery 03/28/17 documented as of this encounter
--- OUTSIDE RECORDS SUMMARY | 2024-11-19 01:47 | XMS_ITS | Encounter Summary ---
Author Organization [facility] Address [facility]3 [place] [address] Care Team Providers Care Strategy Consultant Name Role Phone Deandre Bojorquez MD Unavailable [phone] Jeff Strickland MD Primary Care Provider [phone] Reason for Visit * Reason Onset Date Comments Surgery Rescheduled 11/18/2024 Encounter Details Date Type Department Care Team (Late st Contact Info) Description 11/18/2024 Telephone [facility] - Vascular Surgery [address] [place] [address], [place] [phone] Elroy Holcomb MD [address] [place] [address] DIV [place] [address] Surgery Rescheduled Social History Tobacco Use Types [...] Recorded Patient Health Questionnaire-2 Score 6 10/05/2024 [facility] of Occupat ional Health - [...] any time in the past 12 m [facility], were you homeless or living in a group home (including now)? 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 Gender Identity Male 07/02/2021 2:37 PM [...] CDT Appointment [facility] IVR [address] [place] [phone] Elroy Holcomb MD [address] [place] [address] 2L DIV [place] [address] 11/24/2024 9:05 AM CDT Hospital Encounter [facility] RITO OP [address] [place] [phone] Elroy Holcomb MD [address] [place] [address] 2L [place] [address] Surgery General 11/24/2024 9:05 AM CDT - 11/24/2024 11:20 AM CDT Surgery [facility] RITO OP [address] [place] [phone] Elroy Holcomb MD [facility]5 [facility] 2L DIV [place] [address] Bilateral first toe debridement 12/06/2024 10:40 AM CDT [facility] End[facility] [address] [place] [address], [place] [phone] Marbin Flores MD 1201 [facility] DIV OF ABD [place] [address] Niraj Turner MD [address] [place] [address] 2L [place] [address] 2025 1:00 PM PERISHABLE FREIGHT INSPECTOR Office Visit [facility]ician Group - Neurology [address] [place] [address], [place] [address] Becky Wilson MD [address] [place] [phone] Scheduled Procedures Name Priority Associated Diagnoses Date/Ti me IRRIGATION/DEBRIDEMENT WOUND/TISSUE Peripheral artery disease 11/24/2024 9:05 AM CDT AMPUTATION TOE Peripheral artery disease 11/24/2024 9:05 AM CDT documented as of this encounter Visit Diagnoses Not on filedocumented in this encounter Care Teams Strategy Consultant Relationship Specialty Start Date End Date Jeff Strickland MD [address] [place] [address] PCP - General 03/05/18 [place] [address] [place] [address] Orthopedic Surgery 03/28/17 documented as of this encounter
--- OUTSIDE RECORDS SUMMARY | 2024-11-19 01:47 | XMS_ITS | Encounter Summary ---
Author Organization [facility] Healthcare Address [address] [place] [address] Care Team Providers Care Imaging Clerk Name Role Phone Jeff Strickland MD Primary Care Provider Chan Nicholas MD Unavailable [phone] Alan Mccall MD Unavailable [phone] Pepito Haro MD PhD Unavailable Solange Guido MD Unavailable [phone] Encounter Details Date Type Department Care Team (Late st Contact Info) Description 07/28/2024 Orders Only [facility] Information Management [address] [place] [address] Scanning, Provider Social History Tobacco Use Types Packs/Day Years Used Date Smoking Tobacco: Never Smokeless Tobacco: Never Alcohol Use Standard Drinks/Week Comments Yes 0 (1 standard drink = 0.6 oz pur e alcohol) rarely [facility] Utilities Answer Date Recorded In the past 12 months has [employer] electric, gas, oil, or water company threatened [...] often do you attend chur ch or yazdanism services? 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 Gender Identity Not on file Sexual Orientation [...] on filedocumented in this encounter Care Teams Imaging Clerk Relationship Specialty Start Date End Date Jeff Strickland MD [facility] [address] [place] [phone] PCP - General Family Medicine 04/02/18 Chan Nicholas MD [facility] [address] [address] Consulting Physician Gastroenterology 11/24/18 Alan Mccall MD [facility] [address] [address] Referring Physician Nephrology 11/24/18 Pepito Haro MD PhD [address] [place] [address] Consulting Physician Neurosurgery 12/03/22 Solange Guido MD [address] [facility] 1120 [place] [address] Referring Physician Cardiovascular Disease 07/23/23 documented as of this encounter
--- OUTSIDE RECORDS SUMMARY | 2024-11-19 01:47 | XMS_ITS | Encounter Summary ---
Author Organization [facility] Healthcare Address [address] [place] [address] Care Team Providers Care Php Architect Name Role Phone Jeff Strickland MD Primary Care Provider Chan Nicholas MD Unavailable [phone] Alan Mccall MD Unavailable [phone] Pepito Haro MD PhD Unavailable Solange Guido MD Unavailable [phone] Encounter Details Date Type Department Care Team (Late st Contact Info) Description 07/26/2024 Orders Only [facility] [place] Health Information Management [address] [place] [address] Scanning, Provider Social History Tobacco Use Types Packs/Day Years Used Date Smoking Tobacco: Never Smokeless Tobacco: Never Alcohol Use Standard Drinks/Week Comments Yes 0 (1 standard drink = 0.6 oz pur e alcohol) rarely [facility] Utilities Answer Date Recorded In the past 12 months has [employer] electric, gas, oil, or water company threatened [...] often do you attend chur ch or orthodoxy services? 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 Gender Identity Not on file Sexual Orientation [...] on filedocumented in this encounter Care Teams Php Architect Relationship Specialty Start Date End Date Jeff Strickland MD [address] [place] [address] [address] [address] PCP - General Family Medicine 04/02/18 Chan Nicholas MD [facility] [address] [address] Consulting Physician Gastroenterology 11/24/18 Alan Mccall MD [address] [place] [address] [address] [address] Referring Physician Nephrology 11/24/18 Pepito Haro MD PhD [facility] [address] [place] [phone] Consulting Physician Neurosurgery 12/03/22 Solange Guido MD [address] [facility] 1[address] [place] [address] Referring Physician Cardiovascular Disease 07/23/23 documented as of this encounter
--- OUTSIDE RECORDS SUMMARY | 2024-11-19 01:47 | XMS_ITS | Encounter Summary ---
Author Organization [facility] Address [facility] [place] [address] Care Team Providers Care Manufacturing Plant Manager Name Role Phone Deandre Bojorquez MD Unavailable [phone] eJff Strickland MD Primary Care Provider [phone] Encounter Details Date Type Department Care Team (Late st Contact Info) Description 07/31/2023 Lab Requisition [facility] MAIN LAB [address] [place] [phone] Alan Davenport MD [facility]1 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 TENDER Gender Identity Male 07/02/2021 2:37 PM [...] 10:00 AM CDT Appointment H IVR [address] [place] [address] Elroy Holcomb MD [address] [place] [address] 2L [place] [address] 11/24/2024 9:05 AM CDT Hospital Encounter [facility] RITO OP [address] [place] [address] Elroy Holcomb MD [address] [place] [address] 2L [place] [address] Surgery General 11/24/2024 9:05 AM CDT - 11/24/2024 11:20 AM CDT Surgery [facility] RITO OP [address] [place] [address] Elroy Holcomb MD [address] [place] [address] 2L [place] [address] Bilateral first toe debridement 12/06/2024 10:40 AM CDT Office Visit [facility] - Endocrinology [address] [place] [address], [place] [address] Marbin Flores MD 1201 [facility] DIV OF [place] [address] Niraj Turner MD [address] [facility] 2L [place] [address] 2025 1:00 PM ROUGH PLANER TENDER Office Visit [facility] Physician Group - Neurology [address] [place] [address], [place] [address] Becky Wilson MD [address] [place] [phone] Scheduled Procedures Name Priority Associated Diagnoses Date/Ti [...] Hold HLA Specimen 07/31/2023 3:32 PM CDT [facility] ([facility]) Comment:The Hold HLA specime n has been received into the lab and will be held for 5 years at 4 degrees. Blood BLOOD SPECIMEN / Unknown 07/23/2023 2:05 PM CDT 07/31/2023 2:06 PM CDT Alan Davenport MD LAB - BLOOD BANK ORDERABLES F inal Result [facility] ([facility]) [address] documented in this encounter Visit Diagnoses Not on filedocumented in this encounter Additional Health Concerns Infection Onset Date Last Indicated Resolved Time COVID-19 Under Investigation 09/13/2024 09/13/2024 09/13/2024 6:36 AM CDT documented as of this encounter Care Teams Manufacturing Plant Manager Relationship Specialty Start Date End Date Jeff Strickland MD [address] [place] [address] PCP - General 03/05/18 [place] [address] [place] [address] Orthopedic Surgery 03/28/17 documented as of this encounter
--- OUTSIDE RECORDS SUMMARY | 2024-11-19 01:48 | XMS_ITS | Encounter Summary ---
Author Organization [facility] Address [address] [place] [address] Care Team Providers Care Financial Reporting Analyst Name Role Phone Deandre Bojorquez MD Unavailable [phone] Jeff Strickland MD Primary Care Provider [phone] Encounter Details Date Type Department Care Team (Late st Contact Info) Description 09/24/2024 Results Follow-Up [facility] Early Admission Unit [address] [place] [phone] Angel Crook MD [address] [place] [address] Social History Tobacco Use Types Packs/Day Years [...] and heating? Not hard at all 09/24/2024 [facility] of Occupat ional Health - Occupational Stress [...] PM CDT Legal Sex Male 10:14 PM INFORMATION LEAD Gender Identity Male 07/02/2021 2:37 PM [...] Info) Description 11/23/2024 10:00 AM CDT Appointment [facility] IVR [address] [place] [address] Elroy Holcomb MD [facility]5 [facility] 2L [place] [address] 11/24/2024 9:05 AM CDT Hospital Encounter [facility] RITO OP [address] [place] [address] Elroy Holcomb MD [address] [place] [address] 2L [place] [address] Surgery General 11/24/2024 9:05 AM CDT - 11/24/2024 11:20 AM CDT Surgery [facility] RITO OP [address] [place] [address] Elroy Holcomb MD 1225 [facility] 2L [place] [address] Bilateral first toe debridement 12/06/2024 10:40 AM CDT Office Visit [facility] Physician Group - Endocrinology [address] [place] [address], [place] [phone] Marbin Flores MD 1201 [facility] DIV [place] [address] Niraj Turner MD [facility]5 [facility] 2L [place] [address] 2025 1:00 PM INFORMATION LEAD Office Visit [facility] Physician Group - Neurology [address] [place] [address], [place] [address] Becky Wilson MD [address] [place] [phone] Scheduled Procedures Name Priority Associated Diagnoses Date/Ti me IRRIGATION/DEBRIDEMENT WOUND/TISSUE Peripheral artery disease 11/24/2024 9:05 AM CDT AMPUTATION TOE Peripheral artery disease 11/24/2024 9:05 AM CDT documented as of this encounter Visit Diagnoses Not on filedocumented in this encounter Care Teams Financial Reporting Analyst Relationship Specialty Start Date End Date Jeff Strickland MD [address] [place] [address] PCP - General 03/05/18 [place] [address] [address] Orthopedic Surgery 03/28/17 documented as of this encounter
--- OUTSIDE RECORDS SUMMARY | 2024-11-19 01:48 | XMS_ITS | Encounter Summary ---
Author Organization [facility] Address [address] [place] [address] Care Team Providers Care Erp Business Analyst Name Role Phone Deandre Bojorquez MD Unavailable [phone] Jeff Strickland MD Primary Care Provider [phone] Encounter Details Date Type Department Care Team (Late st Contact Info) Description 11/12/2024 Orders Only [facility] PHYS SURGERY [address] [place] [address] Griffin Rodriguez MD [address] 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 Gender Identity Male 07/02/2021 2:37 [...] 10:00 AM CDT Appointment [facility] IVR [address] [place] [address] Elroy Holcomb MD [address] [place] [address] 2L [place] [address] 11/24/2024 9:05 AM CDT Hospital Encounter [facility] [address] [place] [address] Elroy Holcomb MD [address] [place] [address] 2L [place] [address] Surgery General 11/24/2024 9:05 AM CDT - 11/24/2024 11:20 AM CDT Surgery [facility] OP [address] [place] [address] Elroy Holcomb MD [address] [place] [address] 2L [place] [address] Bilateral first toe debridement 12/06/2024 10:40 AM CDT Office Visit [facility] - Endocrinology [address] [place] [address], [place] [address] Marbin Flores MD [address] [facility] DIV OF [place] [address] Niraj Turner MD 1225 [facility] 2L Div [place] [address] 2025 1:00 PM HOOK AND EYE MACHINE OPERATOR Office Visit [facility] - Neurology [address] [place] [address], [place] [address] Becky Wilson MD [facility] [place] [phone] Scheduled Procedures Name Priority Associated Diagnoses Date/Ti me IRRIGATION/DEBRIDEMENT WOUND/TISSUE Peripheral artery disease 11/24/2024 9:05 AM CDT AMPUTATION TOE Peripheral artery disease 11/24/2024 9:05 AM CDT documented as of this encounter Visit Diagnoses Not on filedocumented in this encounter Care Teams Erp Business Analyst Relationship Specialty Start Date End Date Jeff Strickland MD [address] [place] [address] PCP - General 03/05/18 [place] [address] [place] [address] Orthopedic Surgery 03/28/17 documented as of this encounter
--- OUTSIDE RECORDS SUMMARY | 2024-11-19 01:48 | XMS_ITS | Encounter Summary ---
Author Organization [facility] Address [facility] [place] [address] Care Team Providers Care Design Manager Name Role Phone Deandre Bojorquez MD Unavailable [phone] Jeff Strickland MD Primary Care Provider [phone] Encounter Details Date Type Department Care Team (Late st Contact Info) Description 03/30/2024 Lab Requisition [facility] [address] [place] [phone] Alan Davenport MD [facility] [address] [facility] OF [place] [address] Social History Tobacco Use Types Packs/Day Years Used Date Smoking Tobacco: Never Smokeless Tobacco: Never Alcohol Use Standard Drinks/Week Comments Not Currently 0 (1 standard drink = 0.6 oz pur e alcohol) socially in past Sex and Gender Information Value Date Recorded Sex Assigned at Male 07/02/2021 2:37 PM CDT Legal Sex Male 10:14 PM SOFTWARE TRAINER Gender Identity Male 07/02/2021 2:37 PM CDT [...] 10:00 AM CDT Appointment H IVR [address] [place] [address] Elroy Holcomb MD [address] [place] [address] 2L [place] [address] 11/24/2024 9:05 AM CDT Hospital Encounter [facility] R[facility] OP [address] [place] [address] Elroy Holcomb MD [address] [place] [address] 2L [place] [address] Surgery General 11/24/2024 9:05 AM CDT - 11/24/2024 11:20 AM CDT Surgery [facility] R[facility] OP [address] [place] [address] Elroy Holcomb MD [address] [place] [address] 2L [place] [address] Bilateral first toe debridement 12/06/2024 10:40 AM CDT Office Visit [facility] - Endocrinology [address] [place] [address], [place] [phone] Marbin Flores MD 1201 [facility] DIV OF [place] [address] Niraj Turner MD 1225 [facility] 2L [place] [address] 2025 1:00 PM SOFTWARE TRAINER Office Visit [facility] - Neurology [address] [place] [address], [place] [address] Becky Wilson MD [address] [place] [phone] Scheduled Procedures Name Priority Associated Diagnoses Date/Ti me IRRIGATION/DEBRIDEMENT WOUND/TISSUE Peripheral artery disease 11/24/2024 9:05 AM CDT AMPUTATION TOE Peripheral artery disease 11/24/2024 9:05 AM CDT documented as of this encounter Procedures Procedure Name Priority Date/Time Associated Diagnosis Comments HOLD HLA SPECIMEN Routine 03/25/2024 2:5 1 PM SOFTWARE TRAINER documented in this encounter Results * HOLD HLA SPECIMEN (03/25/2024 2:51 PM SOFTWARE TRAINER) Hold HLA Specimen 03/30/2024 4:01 PM SOFTWARE TRAINER [facility] ([facility]) Comment:The Hold HLA specime n has been received into the lab and will be held for 5 years at 4 degrees. Blood BLOOD SPECIMEN / Unknown 03/25/2024 2:51 PM SOFTWARE TRAINER 03/30/2024 2:51 PM SOFTWARE TRAINER Alan Davenport MD LAB - BLOOD BANK ORDERABLES F inal Result [facility] ([facility]) [address] [place] [address], [facility] documented in this encounter Visit Diagnoses Not on filedocumented in this encounter Additional Health Concerns Infection Onset Date Last Indicated Resolved Time COVID-19 Under Investigation 09/13/2024 09/13/2024 09/13/2024 6:36 AM CDT documented as of this encounter Care Teams Design Manager Relationship Specialty Start Date End Date Jeff Strickland MD [address] [place] [address] PCP - General 03/05/18 [place] [address] [place] [address] Orthopedic Surgery 03/28/17 documented as of this encounter
--- OUTSIDE RECORDS SUMMARY | 2024-11-19 01:48 | XMS_ITS | Clinical Summary ---
Author Organization [facility] Address [facility] [place] [address] Care Team Providers Care Provisioning Specialist Name Role Phone Jeff Strickland MD Primary Care Provider [phone] Allergies Active Allergy Reactions Criticality Noted Date [...] by mouth nightly at bedtime. 

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
--- OUTSIDE RECORDS SUMMARY | 2024-11-19 01:48 | XMS_ITS | Clinical Summary ---
Author Organization [facility] Address [address] [place] [address] Phone Care Team Providers Care Production Reproduction Manager Name Role Phone Jeff Strickland MD Primary Care Provider [phone] Allergies No known active allergies Medications pantoprazole [...] tablet Take 112 mcg by mouth daily imposer. Active aspirin (ANGELLA) 325 mg tablet Take 325 mg by mouth daily. Active Vit C-Vit F-Nctuqx-HtPe-L utein (PRESERVISION) 226 mg-200 unit -5 mg-0.8 [...] Comments Blood Pressure 167/77 02/04/2019 9:16 AM VICE PRESIDENT INTEGRATED Pulse 64 02/04/2019 9:16 AM VICE PRESIDENT INTEGRATED Temperature 36.5 C (97.7 F) 02/04/2019 9:16 AM VICE PRESIDENT INTEGRATED Respiratory Rate 16 02/04/2019 9:16 AM VICE PRESIDENT INTEGRATED Oxygen Saturation 97% 02/04/2019 9:16 AM VICE PRESIDENT INTEGRATED Inhaled Oxygen Concentration - - Weight 113.4 kg (250 lb) 02/04/2019 9:16 AM VICE PRESIDENT INTEGRATED Height 175.3 cm (5' 9) 02/04/2019 9:16 AM VICE PRESIDENT INTEGRATED Body Mass Index 36.92 02/04/2019 9:16 AM VICE PRESIDENT INTEGRATED Plan of Treatment Health Maintenance Due Date [...] ACCESS/TRUE BLUE PPO [employer]ET[employer] MEDICARE SUPPLEMENT PPO [facility] BLUE ACCESS/TRUE BLUE PPO Care Teams Production Reproduction Manager Relationship Specialty Start Date End Date Jeff Strickland MD [address] [facility] [address] [place] [address] PCP - General Family Practice 01/01/19
--- OUTSIDE RECORDS SUMMARY | 2024-11-19 01:48 | XMS_ITS | Encounter Summary ---
Author Organization [facility] Address [facility] [place] [address] Care Team Providers Care Hoof And Shoe Inspector Name Role Phone Deandre Bojorquez MD Unavailable [phone] Jeff Strickland MD Primary Care Provider [phone] Encounter Details Date Type Department Care Team (Late st Contact Info) Description 06/25/2024 Lab Requisition [facility] [address] [place] [address] Alan Davenport MD [facility] [place] [address] Social History Tobacco Use Types Packs/Day Years Used Date Smoking Tobacco: Never Smokeless Tobacco: Never Alcohol Use Standard Drinks/Week Comments Not Currently 0 (1 standard drink = 0.6 oz pur e alcohol) socially in past Sex and Gender Information Value Date Recorded Sex Assigned at Male 07/02/2021 2:37 PM CDT Legal Sex Male 10:14 PM MANAGING PARTNER Gender Identity Male 07/02/2021 2:37 PM CDT [...] 10:00 AM CDT Appointment H IVR [address] [place] [address] Elroy Holcomb MD [address] [place] [address] 2L [place] [address] 11/24/2024 9:05 AM CDT Hospital Encounter [facility] R[facility] OP [address] [place] [address] Elroy Holcomb MD [address] [place] [address] 2L [place] [address] Surgery General 11/24/2024 9:05 AM CDT - 11/24/2024 11:20 AM CDT Surgery [facility] OP [address] [place] [address] Elroy Holcomb MD [address] [place] [address] 2L [place] [address] Bilateral first toe debridement 12/06/2024 10:40 AM CDT Office Visit [facility] - Endocrinology [address] [place] [address], [place] [phone] Marbin Flores MD 12[address] [facility] DIV OF [place] [address] Niraj Turner MD 1225 [facility] 2L [place] [address] 2025 1:00 PM MANAGING PARTNER Office Visit [facility] - Neurology [address] [place] [address], [place] [address] Becky Wilson MD [address] [place] [phone] Scheduled Procedures Name Priority Associated Diagnoses Date/Ti [...] [facility] [address] documented in this encounter Visit Diagnoses Not on filedocumented in this encounter Additional Health Concerns Infection Onset Date Last Indicated Resolved Time COVID-19 Under Investigation 09/13/2024 09/13/2024 09/13/2024 6:36 AM CDT documented as of this encounter Care Teams Hoof And Shoe Inspector Relationship Specialty Start Date End Date Jeff Strickland MD [address] [place] [address] PCP - General 03/05/18 [place] [address] [place] [address] Orthopedic Surgery 03/28/17 documented as of this encounter
--- OUTSIDE RECORDS SUMMARY | 2024-11-19 01:48 | XMS_ITS | Encounter Summary ---
Author Organization [facility] Address [address] [place] [address] Care Team Providers Care Optometric Tech Name Role Phone Deandre Bojorquez MD Unavailable [phone] Jeff Strickland MD Primary Care Provider [phone] Encounter Details Date Type Department Care Team (Late st Contact Info) Description 09/10/2024 Telephone [facility] - Centralized Scheduling [facility] [place] [address] Niraj Turner MD [facility] [place] [address] Social History Tobacco Use Types Packs/Day Years [...] and heating? 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 Gender Identity Male 07/02/2021 2:37 PM CDT [...] Info) Description 11/23/2024 10:00 AM CDT Appointment [facility] IVR [address] [place] [address] Elroy Holcomb MD [facility]5 [facility] 2L [place] [address] 11/24/2024 9:05 AM CDT Hospital Encounter [facility] RIT[facility] OP [address] [place] [address] Elroy Holcomb MD [address] [place] [address] 2L [place] [address] Surgery General 11/24/2024 9:05 AM CDT - 11/24/2024 11:20 AM CDT Surgery [facility] R[facility] OP [address] [place] [phone] Elroy Holcomb MD [facility]5 [facility] 2L [place] [address] Bilateral first toe debridement 12/06/2024 10:40 AM CDT Office Visit [facility] - Endocrinology [address] [place] [address], [place] [phone] Marbin Flores MD 12[address] [facility] DIV [place] [address] Niraj Turner MD [address] [place] [address] 2L [place] [address] 2025 1:00 PM SCREEN PRINTING MACHINE LOADER UNLOADER Office Visit [facility] Group - Neurology [address] [place] [phone] Becky Wilson MD [address] [place] [phone] Scheduled Procedures Name Priority Associated Diagnoses Date/Ti [...] documented as of this encounter Care Teams Optometric Tech Relationship Specialty Start Date End Date Jeff Strikcland MD [address] [place] [address] PCP - General 03/05/18 [place] [address] [address] Orthopedic Surgery 03/28/17 documented as of this encounter
--- OUTSIDE RECORDS SUMMARY | 2024-11-19 01:48 | XMS_ITS ---
Author Organization [facility] Address [facility] [place] [address] Care Team Providers Care Crop Specialist Name Role Phone Jeff Strickland MD Primary Care Provider Chan Nicholas MD Unavailable Alan Mccall MD Unavailable [phone] Pepito Haro MD PhD Unavailable [phone] Solange Guido MD Unavailable [phone] Active Problems Problem Noted Date Diagnosed Date [...] damage Assessment & Plan (03/09/2024 6:25 PM WILDLIFE ECOLOGIST): Vision OD trends mild improvement, though still [...] 03/26/2021 Assessment & Plan (03/26/2021 1:17 PM WILDLIFE ECOLOGIST): Enlarged mild sella turcica on a routine [...] units Assessment & Plan (03/26/2021 1:17 PM WILDLIFE ECOLOGIST): Chronic, uncontrolled, improving A1c today 7.7 % [...] WNL Assessment & Plan (03/26/2021 1:16 PM WILDLIFE ECOLOGIST): Pt currently on Levothyroxine 112 mcg oral [...] 11/18/2018 Assessment & Plan (01/21/2019 2:02 PM WILDLIFE ECOLOGIST): Symptomatic. Will request for esophageal manometry. Continue [...] well Assessment & Plan (03/26/2021 1:16 PM WILDLIFE ECOLOGIST): On statin therapy Tolerating well Last lipid [...] nephrectomy. 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 [id number] Current Treatment and Therapy Plans No current [...] were not included. Kendall Carl 1955 Referring Process Development Chemist: Alan Mccall Dialysis Info: NOD GFR 13 Type: Time: (Not currently on dialysis) days Blood Type: O NEG Body mass index is 37.36 kg/m . ALERTS Supervisory Training Specialist: needs to establish Past Medical History: Diagnosis Date Arthropathy RA. Dr Strickland manages. 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 Becerra in [place]. CKD (chronic kidney disease), stage V Community acquired pneumonia 2018 [facility] hospitalized. Diabetes mellitus 20 years. Lantus pen. Esophageal reflux takes med Hypercholesteremia 5-10 yrs meds Hypertension takes meds Hypothyroidism meds 20 years Kidney stones 5-6 years ago had 2 in the same year. Malignancy right kidney 2012 Obstructive sleep apnea 3 years. [facility]. [place] remember doctors name Renal cell [...] Impression: It is the impression of this public health social worker that Kendall Carl has several positive factors for Kidney transplant candidacy from a psychosocial perspective. Patient appears to have appropriate knowledge of illness. Patient has sufficient insurance coverage and stable financial situation for post transplant needs. No concerns regarding substance abuse, legal issues, or mental health needs. Patient has adequate support system and appropriate discharge plan. Plan: product development worker to provide supportive services as needed. Patient appears to be a reasonable candidate for transplant from a psychosocial perspective. -Post transplant arrangement forms are needed prior to being listed. -Updated toxicology results needed, per protocol Psychiatric Consult Recommended: No Transplant Bioinformatics Assistant: Joy Tam LCSW RD: 11/09/2019 BMI= [...] fitness pal or my food middle school sports coach) - Consume no more than 2000 calories a day E-mailed pt's a 2000 calorie, CKD meal plan. Items Still Pending: Clinic, colonoscopy Acute pain of left shoulder 01/25/2019 03/25/2023 Non-cardiac chest pain 11/18/201803/25 Assessment & Plan (01/21/2019 2:02 PM WILDLIFE ECOLOGIST): The pain is persistent. The patient described [...] has had extensive cardiac workup by the forging engineer including coronary angiogram. He has chest [...]
--- OUTSIDE RECORDS SUMMARY | 2024-11-19 01:48 | XMS_ITS | Clinical Summary ---
Author Organization [facility] Address [address] [address] Phone Care Team Providers Care Revenue Manager Name Role Phone Jeff Strickland MD Primary Care Provider [phone] Allergies No known active allergies Medications levothyroxine [...] tablet 3 0 Active Continuous Blood Gluc Gaming Department Head (FreeStyle Em [place]) device 1 each daily 0 Active Continuous Blood Gluc Sensor (FreeStyle Em Sensor System) misc 1 each once every 2 weeks 0 Active Lancets (OneTouch Delica Plus [id number]) misc OneTouch Delica Plus Lancet 33 gauge [...] 11/10/2019 Overview (12/17/2019): Kendall Carl 1955 Referring Dispatcher Refinery: Alan Mccall Dialysis Info: NOD GFR 13 Type: Time: (Not currently on dialysis) days Blood Type: O NEG Body mass index is 37.36 kg/m . ALERTS Business Writer: needs to establish Past Medical History: Diagnosis Date Arthropathy RA. Dr Strickland manages. 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 Becerra in [place]. CKD (chronic kidney disease), stage V Community acquired pneumonia 2018 [facility] hospitalized. Diabetes mellitus 20 years. Lantus pen. Esophageal reflux takes med Hypercholesteremia 5-10 yrs meds Hypertension takes meds Hypothyroidism meds 20 years Kidney stones 5-6 years ago had 2 in the same year. Malignancy right kidney 2012 Obstructive sleep apnea 3 years. [facility]. [place] remember doctors name Renal cell [...] file Gets together: Not on file Attends druze service: Not on file Active member of [...] is the impression of this social media designer that Kendall Gillris has several positive factors for Kidney transplant candidacy from a psychosocial perspective. Patient appears to have appropriate knowledge of illness. Patient has sufficient insurance coverage and stable financial situation for post transplant needs. No concerns regarding substance abuse, legal issues, or mental health needs. Patient has adequate support system and appropriate discharge plan. Plan: workers compensation claims specialist to provide supportive services as needed. Patient appears to be a reasonable candidate for transplant from a psychosocial perspective. -Post transplant arrangement forms are needed prior to being listed. -Updated toxicology results needed, per protocol Psychiatric Consult Recommended: No Transplant Nail Artist: Joy Tam LCSW RD: 11/09/2019 BMI= 36.2, [...] use my fitness pal or my food soccer coach) - Consume no more than 2000 [...] nephrectomy. 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 [id number] Immunizations Immunization Administration Dates Next Due Influenza [...] Insurance [employer] PM INTERFACED INSURANCE Care Teams Revenue Manager Relationship Specialty Start Date End Date Jeff Strickland MD [address] [facility] [address] [facility] [address] [place] [address] PCP - General Internal Medicine 07/15/18
--- OUTSIDE RECORDS SUMMARY | 2024-11-19 01:48 | XMS_ITS | Encounter Summary ---
Author Organization [facility] Address [facility] [place] [address] Care Team Providers Care Welder Helper Name Role Phone Deandre Bojorquez MD Unavailable [phone] Jeff Strickland MD Primary Care Provider [phone] Encounter Details Date Type Department Care Team (Late st Contact Info) Description 02/04/2024 Lab Requisition [facility] [address] [place] [id number] Alan Davenport MD 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 Gender Identity Male 07/02/2021 2:37 PM [...] AM CDT Appointment H IVR [address] [place] [address] Elroy Holcomb MD [address] [place] [address] 2L [place] [address] 11/24/2024 9:05 AM CDT Hospital Encounter [facility] [address] [place] [address] Elroy Holcomb MD [address] [place] [address] 2L [place] [address] Surgery General 11/24/2024 9:05 AM CDT - 11/24/2024 11:20 AM CDT Surgery [facility] [address] [place] [address] Elroy Holcomb MD [address] [place] [address] 2L [place] [address] Bilateral first toe debridement 12/06/2024 10:40 AM CDT Office Visit [facility] - Endocrinology [address] [place] [address], [place] [phone] Marbin Flores MD [address] [facility] DIV OF [place] [address] Niraj Turner MD [address] [facility] 2L [place] [address] 2025 1:00 PM ENGINEER Office Visit [facility] - Neurology [address] [place] [address], [place] [phone] Becky Wilson MD [address] [place] [phone] Scheduled Procedures Name Priority Associated Diagnoses Date/Ti me IRRIGATION/DEBRIDEMENT WOUND/TISSUE Peripheral artery disease 11/24/2024 9:05 AM CDT AMPUTATION TOE Peripheral artery disease 11/24/2024 9:05 AM CDT documented as of this encounter Procedures Procedure Name Priority Date/Time Associated Diagnosis Comments HOLD HLA SPECIMEN Routine 01/27/2024 3:2 3 PM ENGINEER documented in this encounter Results * HOLD HLA SPECIMEN (01/27/2024 3:23 PM ENGINEER) Hold HLA Specimen 02/04/2024 4:31 PM ENGINEER [facility] Comment:The Hold HLA specime n has been received into the lab and will be held for 5 years at 4 degrees. Blood BLOOD SPECIMEN / Unknown 01/27/2024 3:23 PM ENGINEER 02/04/2024 3:23 PM ENGINEER Alan Davenport MD LAB - BLOOD BANK ORDERABLES F inal Result [facility] ([facility]) [address] [place] [address], [facility] documented in this encounter Visit Diagnoses Not on filedocumented in this encounter Additional Health Concerns Infection Onset Date Last Indicated Resolved Time COVID-19 Under Investigation 09/13/2024 09/13/2024 09/13/2024 6:36 AM CDT documented as of this encounter Care Teams Welder Helper Relationship Specialty Start Date End Date Jeff Strickland MD [address] [place] [address] PCP - General 03/05/18 [place] [address] [place] [address] Orthopedic Surgery 03/28/17 documented as of this encounter
--- OUTSIDE RECORDS SUMMARY | 2024-11-19 01:48 | XMS_ITS ---
Author Organization [facility] Address [address] [place] [address] Care Team Providers Care Instrument Technician Apprentice Name Role Phone Jeff Strickland MD Primary Care Provider Chan Nicholas MD Unavailable Alan Mccall MD Unavailable Pepito Haro MD PhD Unavailable Solange Guido MD Unavailable [phone] Dialysis Access Sites Type Status Location Placement [...] both eyes EGFR Routine 04/13/2024 5:06 AM TISSUE TECHNICIAN HEMOGLOBIN A1C STAT 04/10/2024 11:41 PM TISSUE TECHNICIAN LIPID PANEL STAT 04/10/2024 11:41 PM TISSUE TECHNICIAN from Last 3 Months or Most Recently [...] 300 + = 14 units Active FA-vit Isdde-E-bkte-vitamin D3 (Dialyvite 800-Ultra D) 0.8-2,000 mg-unit tablet [...] total) by mouth 06/04/19 25 Active vitamins A,C,W-tlhu-pthhrp (PreserVision AREDS) 4,296 mcg-226 mg-90 mg capsule [...] damage Assessment & Plan (03/09/2024 6:25 PM TISSUE TECHNICIAN): Vision OD trends mild improvement, though [...] We discussed that genetic results would not changer fixer. Given we have exhausted available treatment without [...] 2 weeks and have patient return to [facility] retina in 4 weeks for [...] 03/26/2021 Assessment & Plan (03/26/2021 1:17 PM TISSUE TECHNICIAN): Enlarged mild sella turcica on a [...] units Assessment & Plan (03/26/2021 1:17 PM TISSUE TECHNICIAN): Chronic, uncontrolled, improving A1c today 7.7 [...] WNL Assessment & Plan (03/26/2021 1:16 PM TISSUE TECHNICIAN): Pt currently on Levothyroxine 112 mcg [...] 11/18/2018 Assessment & Plan (01/21/2019 2:02 PM TISSUE TECHNICIAN): Symptomatic. Will request for esophageal manometry. [...] well Assessment & Plan (03/26/2021 1:16 PM TISSUE TECHNICIAN): On statin therapy Tolerating well Last [...] nephrectomy. 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 [id number] Immunizations Immunization Administration Dates Next Due Hep [...] oz pur e alcohol) rarely [facility] Candy Labities Answer Date Recorded In the past 12 months has [employer], gas, oil, or water [employer] threatened to shut off services in your [...] often do you attend chur ch or mu-ism services? Never 03/25/2023 Do you belong to [...] on file Legal Sex Male 2:23 AM TISSUE TECHNICIAN Gender Identity Not on file Sexual [...] CDT Respiratory Rate 16 04/13/2024 8:33 AM TISSUE TECHNICIAN Oxygen Saturation 98% 04/13/2024 8:33 AM TISSUE TECHNICIAN Inhaled Oxygen Concentration - - Weight 122.3 [...] Selwyn Wong M.D. LC: MARC Report ID: [id number] Reading Location: [id number] Procedure Note Dolores Wong MD - 10/12/2024 EXAM DESCRIPTION: MRI BRAIN WO CONTRAST REASON FOR STUDY: other symptoms and signs involving cognitive functionsand awareness Cognitive changes, confusion, worse over that last several weeks, noinjury or trauma but patient states he has had several surgeries recently TECHNIQUE: Multiplanar imaging includes non-contrasted T1, T2, FLAIR, and diffusion with ADC map sequences. Additional sequence(s) sensitive ascentify products. Images stored on PACS. COMPARISON: MRI [...] Selwyn Wong M.D. LC: MARC Report ID: [id number] Reading Location: [id number] us Provider Transcribed Order IMG MRI PROCEDURES [...] Result * (ABNORMAL) eGFR (04/13/2024 5:06 AM TISSUE TECHNICIAN) eGFR 5(L) >=60 mL/min/1. 73 m2 Comment: [...] last reviewed 2020. Blood 04/13/2024 5:06 AM TISSUE TECHNICIAN 04/13/2024 5:31 AM TISSUE TECHNICIAN us Saul Engle MD LAB BLOOD ORDERABLES Final Resul t [facility] Department of Laboratories [place], [place] [id number] * (ABNORMAL) Lipid panel (04/10/2024 11:41 PM TISSUE TECHNICIAN) Cholesterol 145 30 - 199 mg/dL Comment: [...] on 2017. Triglycerides 453(H) <=149 mg/dL [facility] Comment: Interpretive Data Ages < [...] on 2017. HDL 22(L) >=40 mg/dL [facility] Comment: Interpretive Data Ages < [...] on 2017. LDL, calculated See Comment <=129 [facility] Comment: Unable to calculate LDL due [...] on 2023. Non-HDL Cholesterol 123 mg/dL [facility] Comment: Interpretive Data Ages < [...] last revised on 2017. Chol/HDL ratio 7 [facility] Blood 04/10/2024 11:4 1 PM TISSUE TECHNICIAN 04/10/2024 11:55 PM TISSUE TECHNICIAN us Nicole Boo MD LAB BLOOD ORDERABLES Final Result [facility] [place] [address] from Last 3 Months or Most Recently Relevant to Health Maintenance
--- OUTSIDE RECORDS SUMMARY | 2024-11-19 01:48 | XMS_ITS | Encounter Summary ---
Author Organization [facility] Address [facility] [place] [address] Care Team Providers Care Freelance Art Director Name Role Phone Deandre Bojorquez MD Unavailable [phone] Jeff Strickland MD Primary Care Provider [phone] Encounter Details Date Type Department Care Team (Late st Contact Info) Description 04/29/2024 Lab Requisition [facility] [address] [place] [phone] Alan Davenport MD [facility]1 [facility] OF [place] [address] Social History Tobacco Use Types Packs/Day Years Used Date Smoking Tobacco: Never Smokeless Tobacco: Never Alcohol Use Standard Drinks/Week Comments Not Currently 0 (1 standard drink = 0.6 oz pur e alcohol) socially in past Sex and Gender Information Value Date Recorded Sex Assigned at Male 07/02/2021 2:37 PM CDT 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 Gender Identity Male 07/02/2021 2:37 PM [...] 10:00 AM CDT Appointment H IVR [address] [place] [address] Elroy Holcomb MD [address] [place] [address] 2L [place] [address] 11/24/2024 9:05 AM CDT Hospital Encounter [facility] [address] [place] [address] Elroy Holcomb MD [address] [place] [address] 2L [place] [address] Surgery General 11/24/2024 9:05 AM CDT - 11/24/2024 11:20 AM CDT Surgery [facility] [address] [place] [address] Elroy Holcomb MD [address] [place] [address] 2L [place] [address] Bilateral first toe debridement 12/06/2024 10:40 AM CDT Office Visit [facility] - Endocrinology [address] [place] [address], [place] [phone] Marbin Flores MD [address] [facility] DIV OF [place] [address] Niraj Turner MD [address] [facility] 2L [place] [address] 2025 1:00 PM COMMERCIAL FOOD INSTRUCTOR Office Visit [facility] - Neurology [address] [place] [address], [place] [phone] Becky Wilson MD [address] [place] [phone] Scheduled Procedures Name Priority Associated Diagnoses Date/Ti [...] HLA Specimen 04/29/2024 3:02 PM CDT [facility] ([place]) Comment:The Hold HLA specime n has been received into the lab and will be held for 5 years at 4 degrees. Blood BLOOD SPECIMEN / Unknown 04/27/2024 1:48 PM CDT 04/29/2024 1:49 PM CDT Alan Davenport MD LAB - BLOOD BANK ORDERABLES F inal Result [facility] ([facility]) [address] documented in this encounter Visit Diagnoses Not on filedocumented in this encounter Additional Health Concerns Infection Onset Date Last Indicated Resolved Time COVID-19 Under Investigation 09/13/2024 09/13/2024 09/13/2024 6:36 AM CDT documented as of this encounter Care Teams Freelance Art Director Relationship Specialty Start Date End Date Jeff Strickland MD [address] [place] [address] PCP - General 03/05/18 [place] [address] [place] [address] Orthopedic Surgery 03/28/17 documented as of this encounter
--- OUTSIDE RECORDS SUMMARY | 2024-11-19 01:48 | XMS_ITS | Encounter Summary ---
Author Organization [facility] Address [address] [place] [address] Care Team Providers Care Mine Motor Engineer Name Role Phone Deandre Bojorquez MD Unavailable [phone] Jeff Strickland MD Primary Care Provider [phone] Encounter Details Date Type Department Care Team (Late st Contact Info) Description 03/12/2024 Lab Requisition [facility] [address] [place] [phone] Alan Davenport MD [facility]1 [facility] OF ABD [place] [address] Social History Tobacco Use Types Packs/Day Years Used Date Smoking Tobacco: Never Smokeless Tobacco: Never Alcohol Use Standard Drinks/Week Comments Not Currently 0 (1 standard drink = 0.6 oz pur e alcohol) socially in past Sex and Gender Information Value Date Recorded Sex Assigned at Male 07/02/2021 2:37 PM CDT Legal Sex Male 10:14 PM FILE CLERK Gender Identity Male 07/02/2021 2:37 PM [...] 10:00 AM CDT Appointment H IVR [address] [place] [address] Elroy Holcomb MD [address] [place] [address] 2L [place] [address] 11/24/2024 9:05 AM CDT Hospital Encounter [facility] R[facility] [address] [place] [address] Elroy Holcomb MD [address] [place] [address] 2L [place] [address] Surgery General 11/24/2024 9:05 AM CDT - 11/24/2024 11:20 AM CDT Surgery [facility] [address] [place] [address] Elroy Holcomb MD [address] [place] [address] 2L [place] [address] Bilateral first toe debridement 12/06/2024 10:40 AM CDT Office Visit [facility] - Endocrinology [address] [place] [address], [place] [phone] Marbin Flores MD 12[address] [facility] DIV OF ABD [place] [address] Niraj Turner MD 1225 [facility] 2L [place] [address] 2025 1:00 PM FILE CLERK Office Visit [facility] - Neurology [address] [place] [address], [place] [phone] Becky Wilson MD [address] [place] [phone] Scheduled Procedures Name Priority Associated Diagnoses Date/Ti me IRRIGATION/DEBRIDEMENT WOUND/TISSUE Peripheral artery disease 11/24/2024 9:05 AM CDT AMPUTATION TOE Peripheral artery disease 11/24/2024 9:05 AM CDT documented as of this encounter Procedures Procedure Name Priority Date/Time Associated Diagnosis Comments HOLD HLA SPECIMEN Routine 03/05/2024 1:4 0 PM FILE CLERK documented in this encounter Results * HOLD HLA SPECIMEN (03/05/2024 1:40 PM FILE CLERK) Hold HLA Specimen 03/12/2024 3:00 PM FILE CLERK [facility] Comment:The Hold HLA specime n has been received into the lab and will be held for 5 years at 4 degrees. Blood BLOOD SPECIMEN / Unknown 03/05/2024 1:40 PM FILE CLERK 03/12/2024 1:40 PM FILE CLERK Alan Davenport MD LAB - BLOOD BANK ORDERABLES F inal Result [facility] ([facility]) [address] [place] [address], [facility] documented in this encounter Visit Diagnoses Not on filedocumented in this encounter Additional Health Concerns Infection Onset Date Last Indicated Resolved Time COVID-19 Under Investigation 09/13/2024 09/13/2024 09/13/2024 6:36 AM CDT documented as of this encounter Care Teams Mine Motor Engineer Relationship Specialty Start Date End Date Jeff Strickland MD [address] [place] [address] PCP - General 03/05/18 [place] [address] [place] [address] Orthopedic Surgery 03/28/17 documented as of this encounter
--- OUTSIDE RECORDS SUMMARY | 2024-11-19 01:48 | XMS_ITS | Encounter Summary ---
Author Organization [facility] Address [address] [facility] [address] Care Team Providers Care Semiconductor Packages Tester Name Role Phone Deandre Bojorquez MD Unavailable Jeff Strickland MD Primary Care Provider [phone] Reason for Visit * Reason Onset Date Comments Post-Op 09/03/2024 Encounter Details Date Type Department Care Team (Late st Contact Info) Description 09/03/2024 Telephone [facility] - Cardiology [address] [facility], [facility] [address] [place] [address] Hannah Goodman MD [address] [facility] 2L [place] [address] Post-Op Social History Tobacco Use Types Packs/Day [...] and heating? Not hard at all 09/04/2024 [facility] ional [facility] - Occupational Stress [...] time in the past 12 m [address] [place], were you homeless or living in a long-term (including now)? 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 Gender Identity Male 07/02/2021 2:37 PM [...] Assessment Author 2 09/04/2024 1:56 PM CDT Roebrt Dhillon RN * Is person deaf or [...] confused post op Patient Call Back number: [phone] documented in this encounter Plan of Treatment Upcoming Encounters Date Type Department Care Team (Late st Contact Info) Description 11/23/2024 10:00 AM CDT Appointment [facility] IVR [address] [place] [address] Elroy Holcomb MD [address] [place] [address] 2L DIV [place] [address] 11/24/2024 9:05 AM CDT Hospital Encounter [facility] RIT[facility] OP [address] [place] [address] Elroy Holcomb MD [address] [place] [address] 2L DIV [place] [address] Surgery General 11/24/2024 9:05 AM CDT - 11/24/2024 11:20 AM CDT Surgery [facility] OP [address] [place] [address] Elroy Holcomb MD [address] [place] [address] 2L DIV [place] [address] Bilateral first toe debridement 12/06/2024 10:40 AM CDT Office Visit [facility] - Endocrinology [address] [place] [address], [place] [phone] Marbin Flores MD [address] [place] [address] DIV OF ABD [place] [address] Niraj Turner MD [address] [place] [address] 2L [place] [address] 2025 1:00 [address] DEL[address]ERY ROUTE DRIVER Office Visit [facility] - Neurology [facility]5 [facility], [place] [address] Becky Wilson MD [address] [place] [address] Scheduled Procedures Name Priority Associated Diagnoses Date/Ti [...] documented as of this encounter Care Teams Semiconductor Packages Tester Relationship Specialty Start Date End Date Jeff Strickland MD [address] [place] [address] PCP - General 03/05/18 [place] [address] [address] Orthopedic Surgery 03/28/17 documented as of this encounter
--- NOTE | 2024-11-19 01:58 | PC.NURSE ---
Patient refused bedside eye exam. EDP notified. No furher orders at this time.
[2024-11-19] MEDS: SODIUM CHLORIDE 0.9% IV 500 ML 999 ML IV CONT (02:54)
[2024-11-19] MEDS: KETOROLAC 15 MG/ML VIAL (*BKC) IV PUSH (02:54)
[2024-11-19] MEDS: PROCHLORPERAZINE EDISYLATE 10 MG/2 ML VIAL 5 MG IV PUSH (02:55)
[2024-11-19] MEDS: MAGNESIUM SULF 1 GM/D5W 100 ML 1 GM/100 ML BAG IVPB (02:55)
[2024-11-19 04:04] VITALS: BP 119/95; PULSE 74; RESP 21; O2SAT 100
== END 2024-11-19 04:30 | disposition home or self-care (01) ==
PROVIDERS: Emergency Provider Student in an Organized Health Care Education/Training Program; PCP Family Medicine
DX: R51.9 Headache, unspecified (principal); H57.12 Ocular pain, left eye; H11.002 Unspecified pterygium of left eye; I13.2 Hypertensive heart and chronic kidney disease with heart failure and with stage 5 chronic kidney disease, or end stage renal disease; E11.22 Type 2 diabetes mellitus with diabetic chronic kidney disease; N18.6 End stage renal disease; I50.32 Chronic diastolic (congestive) heart failure; Z99.2 Dependence on renal dialysis
CPT/HCPCS: 96365; 96375; 99284; J0780; J1200; J1885; J3475; J7040; J8540

== ENCOUNTER 2024-11-28 20:20 | Emergency (ER) | payer MEDICARE, SELFPAY ==
--- OUTSIDE RECORDS SUMMARY | 2009-04-18 10:00 | XMS_ITS | Continuity of Care Document ---
Author Organization [facility] Address [address] [place] [address] Phone Care Team Providers Care Line Repairer Tower Name Role Phone Kee Rodriguez Unavailable Unavailable Procedures Procedure Date Office/outpatient Visit, Est Eye Exam Established Pt Advance Directives Directive Yes / No Effective Date File Name No Information Encounters Encounter Description Practice Location Reason(s) For Visit Diagnoses Date Provider Providers Copied on Encounter Office/outpat ient Visit, Est [facility], [address] [place] [address] [address], [place], [place], [address], tel:[phone] SEC [facility] No Information Mar-0 2-201 0 Krishnasamy Kee. [address] [facility] [place] [address], [place], [place], [facility], [place]. tel:[phone] [facility], [address] [place] [address] [address], [place], [place], [address], tel:[phone] SEC [facility] No Information Nhan-3 0-200 7 David OD Freddy. [address], [place], [facility], [place]. tel:[phone] Family History Family Member Type Diagnosis Age [...]
--- OUTSIDE RECORDS SUMMARY | 2023-09-09 06:59 | XMS_ITS | Continuity of Care Document ---
Author Organization [employer] [place] Address [address] [facility] [facility] [address] [place] [address] Phone Care Team Providers Care Library Customer Service Clerk Name Role Phone Olu Payan Unavailable Unavailable [...] Diagnoses Date Provider Providers Copied on Encounter [facility], [place], [place], [address], tel:[phone] [place] No Information [address] [place] [address], [address], [place], [facility], . tel: [phone] [address] [place] [address], [place], [place], [address], tel:[phone] [place] No Information 4 Genoveva Mcdonald. . Referring Provider: Jeff Strickland [address] [place] [address] 162 [address], [place], [facility]. tel:[phone] [address] [address], [place], [place], [address], tel:[phone] [place] No Information 4 Gladis Olu. [address] [place] [address], [address], [place], [facility], . tel: [phone] Referring Provider: Yanira Chin [facility] [address], [place], [facility]. tel:[phone] [address] [address], [place], [place], [address], tel:[phone] [place] No Information 4 Gladis Raines. [address] [place] [address], [address], [place], [facility], . tel: [phone] Referring Provider: Yanira Chin [facility] [address], [place], [address]. tel:[phone], [address], tel:[phone] [place] No Information 4 Jacinto Fairchild. . Referring Provider: Yanira Chin [facility] [address], [place], [address]. tel:[phone], [place], [place], [address], [place] tel:[phone] [place] No Information 4 Jacinto Fairchild. . Referring Provider: Jeff Strickland [address] [place] [address] 162 [address], [place], [facility]. tel:[phone], [address], tel:[phone] [place] No Information 4 Genoveva Mcdonald. . Referring Provider: Jeff Strickland [address] [place] [address] 162 [address], [place], [facility]. tel:[phone], [address], tel:[phone] [place] No Information 4 Gladis Raines. [address] [facility], [address], [place], [facility], . tel: [phone] Referring Provider: Jeff Strickland [address] [place] [address] 162 [address], [place], [facility]. tel:[phone], [address], tel:[phone] [place] No Information 0 4 Genoveva Mcdonald. . Referring Provider: Jeff Strickland [address] [place] [address] 162 [address], [place], [facility]. tel:[phone] [address], [place], [address], [place] tel:[phone] [place] No Information 0 4 Gladis Raines. [address] [facility], [address], [place], [facility], . tel: [phone] Referring Provider: Jeff Strickland [address] [place] [address] [address], [place], [facility]. tel:[phone] Family History Family Member Type Diagnosis Age At Onset No Information Payers Payer name Insurance type Covered democrat ID Diego suarez(ernesto Hadley [id number] Social History Type Description Quantity Date Captured [...]
--- OUTSIDE RECORDS SUMMARY | 2024-02-03 06:45 | XMS_ITS ---
Author Organization [facility] Address [address] [facility] [place] [address] Care Team Providers Care Distribution Lineman Name Role Phone DONNIE WOOD MD Primary Care Provider Lance Sergio Trujillo Unavailable [phone] ALLERGIES No Known Allergies REASON FOR VISIT [...] retired. 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 John's, [place]'s and Gaenslen's are positive bilaterally. There is [...]
--- OUTSIDE RECORDS SUMMARY | 2024-03-03 06:30 | XMS_ITS ---
Author Organization [facility] Address [address] [place] [address] [place] [address] Care Team Providers Care County Auditor Name Role Phone DONNIE WOOD MD Primary Care Provider Lance Sergio Trujillo Unavailable [phone] ALLERGIES No Known Allergies REASON FOR VISIT [...] retired. 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 He denies tobacco, alcohol, or illicit drug abuse PROBLEMS Problem Type ICD Code Onset Dates Problem Status W/U Status Risk SNOMED Code Notes Problem Primary osteoarthritis, 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) Active confirmed Localized, primary osteoarthritis of the shoulder region ([id number]) VITAL SIGNS Blood pressure systolic 112 mm Hg 03/03/19 25 Blood pressure diastolic 62 mm Hg 025 Heart Rate 59 /min 03/03/2024 Respiratory Rate 18 /min 03/03/2024 Height 5 ft 9 in in 03/03/2024 Weight 229 lbs 03/03/2024 BMI 33.81 kg/m2 03/03/2024 Encounters Encounter Location Date Provider Diagnosis [facility] [address] [facility] [place] [address] 03/03/2024 Sergio Stynowick Pain in left knee M25.562 ; Primary osteoarthritis, unspecified shoulder M19.019 ; Other chest pain R07.89 ; Radiculopathy, lumbar region M54.16 ; Other intervertebral disc degeneration, lumbar region M51.36 ; 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 John's, [place]'s and Gaenslen's are positive bilaterally. There is [...]
--- OUTSIDE RECORDS SUMMARY | 2024-03-08 07:45 | XMS_ITS ---
Author Organization [facility] Address [address] [place] [address] [place] [address] Care Team Providers Care Gas Main Fitter Name Role Phone DONNIE WOOD MD Primary Care Provider Robba Sergio Trujillo Unavailable [phone] REASON FOR VISIT BILAT SHOULDER JOINT INJECTION (NEED XRAY - BEING DONE AT [facility]) MEDICATIONS Medication SIG (Take, Route, Frequency, Duration) Notes Start Date End Date Status cloNIDine HCl 0.1 MG/24HR 1 patch to ski n Transdermal for 30 day(s) Active HYDROcodone-Acetaminophen 5-325 MG 1 tablet as needed Orally every 6 hrs Active Metoclopramide HCl 10 MG 1 tablet before meals Orally Twice a day for 30 day(s) Active Lansoprazole 30 MG 1 capsule 1/2 to 1 h our before morning meal Orally Once a day for 30 day(s) Active PreserVision AREDS - as directed Orally Active metOLazone 5 MG TAKE 1 TABLET BY BRUCE TH DAILY Oral for 30 Active hydrALAZINE HCl 10 MG 1 tablet with food Orally Three times a day Active Lisinopril 20 MG 1 tablet Orally Once a day for 30 day(s) Active Levothyroxine Sodium 112 MCG 1 tablet in the morning on an empty stomach Orally Once a day Active LORazepam 0.5 MG TAKE 1 TABLET BY BRUCE TH AT BEDTIME NEEDED FOR ANXIETY Oral for 30 Active Gabapentin 300 MG 1 capsule Orally Thr ee a day Active dilTIAZem HCl ER 120 MG TAKE 1 CAPSULE B Y MOUTH TWICE DAILY Oral for 90 Active Furosemide 80 MG 1 tablet Orally Once a day for 30 day(s) Active Atorvastatin Calcium 80 MG 1 tablet Oral ly Once a day Active Basaglar KwikPen 100 UNIT/ML as directed Subcutaneous Act sylvie Fenofibrate 145 MG 1 tablet Orally Once a day for 30 day(s) Active Aspirin 81 MG 1 tablet Orally Once a day Active Tadalafil 5 MG 1 tablet as needed O rally Once a day for 30 day(s) Active Tylenol PM Extra Strength 500-25 MG 1 tablet at bedtime as needed Orally Once a day for 30 day(s) Active Vitamin D3 125 MCG (5000 UT) 1 capsule Orally Once a day for 30 day(s) Active Carvedilol 25 MG 1 tablet with food O rally Twice a day for 30 day(s) Active NovoLOG FlexPen 100 UNIT/ML as directed Subcutaneous Active Dialyvite 800 0.8 MG 1 tablet Orally Onc e a day for 30 day(s) Active Encounters Encounter Location Date Provider Diagnosis [facility] [address] [place] [address] 03/08/2024 Sergio Rivera Primary osteoarthritis, unspecified shoulder M19.019 ASSESSMENTS Encounter Date Diagnosis Assessment Notes Treatment Notes Treatment Clinical Notes Section Notes 03/08/2024 Primary osteoarthritis, unspecified shoulder (ICD-10 - M19.019) PLAN OF TREATMENT No Information Procedure Notes * Category Sub-Category Detail Notes Shoulder Joint Injection Under Fluoroscopy Locat ion: Bilateral Anesthesia: Local without IV sed ation Operative Technique: After the risks, be nefits, alternative treatments and potential complications related to the procedure were discussed and written and informed consent was obtained, the patient was placed in the supine position on the fluoroscopy table. Standard ASA monitors were applied. The anterior surface of the left and right shoulders were prepped and draped in the usual sterile fashion with chlorhexidine 2%/IPA 70%. The subacromial space of the left, followed by the right, shoulder was identified under live x-ray guidance. A 25 gauge 1.5 inch needle was inserted in a gun barrel fashion under fluoroscopic guidance. The needle tip was placed into the subacromial space. The subcutaneous structures were anesthetized with 3 mL of 1% Preservative-Free lidocaine during needle placement. After negative aspiration 2 mL of Omnipaque 240 contrast dye was injected showing good spread within the subacromial space. There were no filling defects. Contrast spread normally without obstruction. A solution of 10 mg of Preservative-Free Dexamethasone (10 mg/mL), plus 5 mL of 0.25% Preservative-Free bupivacaine was mixed and after negative aspiration 3 mL of this solution was slowly injected into the joint. The needle was removed, the skin was cleaned and a band-aid was placed over the puncture site. The patient tolerated the procedure well, was able to ambulate without difficulty and was monitored for 20 minutes. The patient remained hemodynamically and neurologically stable. No apparent complications were observed. Post-operative instructions were reviewed with the patient. The patient was then discharged home in good condition with a regional tanker truck driver. X-ray time: 6 seconds Progress Notes * Examination Category Sub-Category [...] patient's typical axial low back pain. John's, [place]'s and Gaenslen's are positive bilaterally. There is [...] and Follow-up: Follow-up Plan documen wendy:: Yes [facility] Quality 2020: [facility] Documented:: Compliant
--- OUTSIDE RECORDS SUMMARY | 2024-03-31 10:13 | XMS_ITS ---
Author Organization [facility] Address [address] [facility] [place] [address] Care Team Providers Care Director Manufacturing Engineering Name Role Phone DONNIE WOOD MD Primary Care Provider Unavaila Sergio Trujillo Unavailable [phone] Encounters Encounter Location Date Provider Diagnosis [facility] [address] [facility] [place] [address] 03/31/2024 Sergio Rivera PLAN OF TREATMENT No Information
--- NOTE | ~2024-11-28 | XR_ITS ---
EXAMINATION: XR foot LT 2V, 11/29/2024 2:52 CDT HISTORY: post amputation 1st toe COMPARISON: No comparisons available. Findings: Postsurgical changes with resection of the first digit, there is irregularity of the residual proximal phalanx, osteomyelitis is not excluded. No significant degenerative changes. Soft tissues unremarkable. Impression: Postsurgical changes. If there is concern for osteomyelitis contrast-enhanced MRI is recommended Reviewed, dictated and finalized at location P. Impression: Postsurgical changes. If there is concern for osteomyelitis contrast-enhanced M RI is recommended
--- NOTE | ~2024-11-28 | XR_ITS ---
Examination: XR chest 2V Clinical History: CHEST PAIN/ DIZZINESS Comparison: 11/07/2024 Technique: PA and Lateral Findings: Cardiomediastinal silhouette normal size and configuration. Lungs clear. Right upper lobe calcified granuloma. No acute bony abnormality. IMPRESSION: 1. No acute cardiopulmonary findings. Reviewed, dictated and finalized at location R.
--- NOTE | 2024-11-28 20:23 | ECG_ITS ---
Test Date: 2024-11-28 20:28:22 Measurements Intervals Turner Rate: 70 P: 0 AR: 0 QRS: -83 QRSD: 125 T: 70 QT: 443 QTc: 480 Interpretive Statements SINUS RHYTHM RIGHT BUNDLE BRANCH BLOCK LEFT ANTERIOR FASCICULAR BLOCK CANNOT R/O SEPTAL INFARCT, AGE INDETERMINATE BASELINE ARTIFACT- I, II, III, AVR, AVL, AVF, V1-V6 ABNORMAL ECG Compared to ECG 11/13/2024 20:56:56 NO SIGNIFICANT CHANGE Electronically Signed On 11-29-2024 06:18:42 CDT by Dilan Preciado D.O.
[2024-11-28 20:26] VITALS: BP 157/72; PULSE 72; RESP 20; TEMP 36.6; O2SAT 97
--- NOTE | 2024-11-28 20:59 | PC.NURSE ---
Patient is tough stick, multiple attempts with unsuccessful.
[2024-11-28] MEDS: ASPIRIN 81 MG CHEWABLE TABLET 324 MG PO (21:06)
[2024-11-28 23:57] VITALS: BP 145/76; PULSE 79; RESP 18; TEMP 36.6; O2SAT 98
[2024-11-29] VITALS (15 sets, daily range): BP systolic 134–188; BP diastolic 57–98; PULSE 61–80; RESP 12–21; O2SAT 93–100
--- NOTE | 2024-11-29 00:02 | PC.NURSE ---
Patient coming to desk frequently and multiple time stating when can I see a doctor, what can I say to go back faster, how much longer? Patient educated each time that everyone is working as fast as they can to help everyone and that the provider has seen his EKG and he needs an ultrasound IV or blood draw due to being stuck multiple times without success. Patient continues to state, well I just need to know what I need to do to go back faster. Patient informed he will be taken back to a room when one becomes available for him. Patient wheels himself back to his family member in the waiting room.
--- OUTSIDE RECORDS SUMMARY | 2024-11-29 01:10 | XMS_ITS | Encounter Summary ---
Author Organization [facility] Address [address] [place] [address] Care Team Providers Care Leadership Program Internship Name Role Phone Deandre Bojorquez MD Unavailable [phone] Jeff Strickland MD Primary Care Provider [phone] Encounter Details Date Type Department Care Team (Late st Contact Info) Description 05/29/2023 Lab Requisition [facility] [address] [place] [address] Alan Davenport MD [facility]1 [facility] [place] [address] Social History Tobacco Use Types Packs/Day Years Used Date Smoking Tobacco: Never Smokeless Tobacco: Never Alcohol Use Standard Drinks/Week Comments Not Currently 0 (1 standard drink = 0.6 oz pur e alcohol) socially in past Sex and Gender Information Value Date Recorded Sex Assigned at Male 07/02/2021 2:37 PM CDT 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 Gender Identity Male 07/02/2021 2:37 PM CDT [...] Office Visit [facility] - Endocrinology [address] [place] [address], [place] [address] Marbin Flores MD [address] [facility] DIV [place] [address] Niraj Turner MD [facility]5 [facility] 2L [place] [address] 12/07/2024 1:30 PM CDT Office Visit [facility] - Vascular Surgery [address] [place] [address], [place] [address] Elroy Holcomb MD [address] [place] [address] 2L [place] [address] 2025 1:00 PM CYTOLOGIST Office Visit [facility] - Neurology [address] [place] [address], [place] [address] Becky Wilson MD [address] [place] [address] documented as of this encounter Procedures Procedure Name Priority Date/Time Associated Diagnosis Comments HOLD HLA SPECIMEN Routine 05/21/2023 9:2 4 AM CDT documented in this encounter Results * HOLD HLA SPECIMEN (05/21/2023 9:24 AM CDT) Hold HLA Specimen 05/29/2023 10:[address] [facility] ([facility]) Comment:The Hold HLA specime n has been received into the lab and will be held for 5 years at 4 degrees. Blood BLOOD SPECIMEN / Unknown 05/21/2023 9:24 AM CDT 05/29/2023 9:24 AM CDT Alan Davenport MD LAB - BLOOD BANK ORDERABLES F inal Result [facility] ([facility] [address] documented in this encounter Visit Diagnoses Not on filedocumented in this encounter Additional Health Concerns Infection Onset Date Last Indicated Resolved Time COVID-19 Under Investigation 09/13/2024 09/13/2024 09/13/2024 6:36 AM CDT documented as of this encounter Care Teams Leadership Program Internship Relationship Specialty Start Date End Date Jeff Strickland MD [address] [place] [address] PCP - General 03/05/18 [place] [address] [address] Orthopedic Surgery 03/28/17 documented as of this encounter
--- OUTSIDE RECORDS SUMMARY | 2024-11-29 01:10 | XMS_ITS | Clinical Summary ---
Author Organization [facility] Address [address] [place] [address] Care Team Providers Care Bottom Steep Tender Name Role Phone Jeff Strickland MD Primary [...] Capsule Take 100 mg by mouth. 5 12/25/19 25 Active hydrALAZINE 10 MG Tablet Take 20 [...] mouth daily. Active nystatin-triamc inolone (MYCOLOG II) 843797-9.1 UNIT/GM-% Cream 5 Active ondansetron (ZOFRAN-ODT) 4 [...] 1 Capsule by mouth daily. 5 Active Encounters Date Type Department Care Team Description 10/29/2024 Telephone [facility] Medical [facility] - Cardiology - [place] [address] [place] [address] Suly Smith, STRAWHAT SIZER, FURNITURE MANAGER 10/15/2024 [facility]phone [facility] [place] [address] [place] [address] Hannah Goodman MD 10/14/2024 2:40 PM CDT Clinical Support [facility] Cardiology [facility] [address] [place] [address] [facility] Cardiology Dressing change (Primary Dx) Discharge [...] st Contact Info) Description 04/11/2025 11:30 AM GYPSUM CALCINER Office Visit [facility] Cardiology [facility] [address] [place] [address] Maylin Cutler DO [address] [place] [id number] Health Maintenance Due Date Last Done Comments [...] topic Insurance MEDICARE C AETNA Care Teams Bottom Steep Tender Relationship Specialty Start Date End Date Jeff Strickland MD [address] [place] [address] PCP - General Family Medicine 10/14/24
--- OUTSIDE RECORDS SUMMARY | 2024-11-29 01:10 | XMS_ITS | Encounter Summary ---
Author Organization [facility] Address [address] [place] [address] Care Team Providers Care Associate Consulting Engineer Name Role Phone Deandre Bojorquez MD Unavailable [phone] Jeff Strickland MD Primary Care Provider [phone] Encounter Details Date Type Department Care Team (Late st Contact Info) Description 07/31/2023 Lab Requisition [facility] MAIN LAB [address] [place] [address] Alan Davenport MD 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 Gender Identity Male 07/02/2021 2:37 PM [...] Visit [facility] - Endocrinology [address] [place] [address], [place] [address] Marbin Flores MD [address] [facility] DIV [place] [address] Niraj Turner MD [facility]5 [facility] 2L [place] [address] 12/07/2024 1:30 PM CDT Office Visit [facility] - Vascular Surgery [address] [place] [address], [place] [address] Elroy Holcomb MD [address] [place] [address] 2L [place] [address] 2025 1:00 PM BIOMECHANICAL ENGINEER Office Visit [facility] - Neurology [address] [place] [address], [place] [address] Becky Wilson MD [address] [place] [address] documented as of this encounter Procedures Procedure Name Priority Date/Time Associated Diagnosis Comments HOLD HLA SPECIMEN Routine 07/23/2023 2:0 5 PM CDT documented in this encounter Results * HOLD HLA SPECIMEN (07/23/2023 2:05 PM CDT) Hold HLA Specimen 07/31/2023 3:32 PM CDT [facility] ([facility]) Comment:The Hold HLA specime n has been received into the lab and will be held for 5 years at 4 degrees. Blood BLOOD SPECIMEN / Unknown 07/23/2023 2:05 PM CDT 07/31/2023 2:06 PM CDT Alan Davenport MD LAB - BLOOD BANK ORDERABLES F inal Result [facility] ([facility] [address] documented in this encounter Visit Diagnoses Not on filedocumented in this encounter Additional Health Concerns Infection Onset Date Last Indicated Resolved Time COVID-19 Under Investigation 09/13/2024 09/13/2024 09/13/2024 6:36 AM CDT documented as of this encounter Care Teams Associate Consulting Engineer Relationship Specialty Start Date End Date Jeff Strickland MD [address] [place] [address] PCP - General 03/05/18 [place] [address] [address] Orthopedic Surgery 03/28/17 documented as of this encounter
--- OUTSIDE RECORDS SUMMARY | 2024-11-29 01:10 | XMS_ITS | Encounter Summary ---
Author Organization [facility] Address [address] [place] [address] Care Team Providers Care Clothing Examiner Name Role Phone Deandre Bojorquez MD Unavailable Jeff Strickland MD Primary Care Provider [phone] Encounter Details Date Type Department Care Team (Late st Contact Info) Description 04/10/2023 Lab Requisition [facility] [address] [place] [address] Alan Davenport MD [facility] OF ABD TRANSPLANT [place] [address] Social History Tobacco Use Types Packs/Day Years Used Date Smoking Tobacco: Never Smokeless Tobacco: Never Alcohol Use Standard Drinks/Week Comments Not Currently 0 (1 standard drink = 0.6 oz pur e alcohol) socially in past Sex and Gender Information Value Date Recorded Sex Assigned at Male 07/02/2021 2:37 PM CDT 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 Gender Identity Male 07/02/2021 2:37 PM [...] Visit [facility] - Endocrinology [address] [place] [address], [place] [address] Marbin Flores MD 12[address] [facility] DIV OF ABD TRANSPLANT [place] [address] Niraj Turner MD [facility]5 [facility] 2L [place] [address] 12/07/2024 1:30 PM CDT Office Visit [facility] - Vascular Surgery [address] [place] [address], [place] [address] Elroy Holcomb MD [address] [place] [address] 2L DIV OF VASCULAR [place] [address] 2025 1:00 PM RISK PREVENTION ENGINEER Office Visit [facility] - Neurology [address] [place] [address], [place] [address] Becky Wilson MD [address] [place] [address] documented as of this encounter Procedures Procedure Name Priority Date/Time Associated Diagnosis Comments HOLD HLA SPECIMEN Routine 04/02/2023 3:0 1 PM RISK PREVENTION ENGINEER documented in this encounter Results * HOLD HLA SPECIMEN (04/02/2023 3:01 PM RISK PREVENTION ENGINEER) Hold HLA Specimen 04/10/2023 4:01 PM RISK PREVENTION ENGINEER [facility] ([facility]) Comment:The Hold HLA specime n has been received into the lab and will be held for 5 years at 4 degrees. Blood BLOOD SPECIMEN / Unknown 04/02/2023 3:01 PM RISK PREVENTION ENGINEER 04/10/2023 3:01 PM RISK PREVENTION ENGINEER Alan Davenport MD LAB - BLOOD BANK ORDERABLES F inal Result [facility] ([facility]) [address] documented in this encounter Visit Diagnoses Not on filedocumented in this encounter Additional Health Concerns Infection Onset Date Last Indicated Resolved Time COVID-19 Under Investigation 09/13/2024 09/13/2024 09/13/2024 6:36 AM CDT documented as of this encounter Care Teams Clothing Examiner Relationship Specialty Start Date End Date Jeff Strickland MD [address] [place] [address] PCP - General 03/05/18 [place] [address] [address] Orthopedic Surgery 03/28/17 documented as of this encounter
--- OUTSIDE RECORDS SUMMARY | 2024-11-29 01:10 | XMS_ITS | Encounter Summary ---
Author Organization [facility] Address [address] [place] [address] Care Team Providers Care Mechanical System Technician Name Role Phone Deandre Bojorquez MD Unavailable [phone] Jeff Strickland MD Primary Care Provider [phone] Encounter Details Date Type Department Care Team (Late st Contact Info) Description 02/07/2023 Lab Requisition [facility]IN LAB [address] [place] [address] Alan Davenport MD [facility] OF ABD [place] [address] Social History Tobacco Use Types Packs/Day Years [...] Suáerz RN * Does person have difficulty doing [...] Office Visit [facility] - Endocrinology [address] [place] [address], [place] [address] Marbin Flores MD [address] [facility] DIV OF ABD TRANS[place] [address] Niraj Turner MD [facility]5 [facility] 2L [place] [address] 12/07/2024 1:30 PM CDT Office Visit [facility] - Vascular Surgery [address] [place] [address], [place] [address] Elroy Holcomb MD [address] [place] [address] 2L DIV [place] [address] 2025 1:00 PM RECRUITMENT ADVERTISING MANAGER Office Visit [facility] - Neurology [address] [place] [address], [place] [address] Becky Wilson MD [address] [place] [address] documented as of this encounter Procedures Procedure Name Priority Date/Time Associated Diagnosis Comments HOLD HLA SPECIMEN Routine 2023 7:5 8 AM RECRUITMENT ADVERTISING MANAGER documented in this encounter Results * HOLD HLA SPECIMEN (2023 7:58 AM RECRUITMENT ADVERTISING MANAGER) Hold HLA Specimen 02/07/2023 9:01 AM RECRUITMENT ADVERTISING MANAGER [facility] ([facility]) Comment:The Hold HLA specime n has been received into the lab and will be held for 5 years at 4 degrees. Blood BLOOD SPECIMEN / Unknown 2023 7:58 AM RECRUITMENT ADVERTISING MANAGER 02/07/2023 7:59 AM RECRUITMENT ADVERTISING MANAGER Alan Davenport MD LAB - BLOOD BANK ORDERABLES F inal Result [facility] ([facility]) [address] documented in this encounter Visit Diagnoses Not on filedocumented in this encounter Additional Health Concerns Infection Onset Date Last Indicated Resolved Time COVID-19 Under Investigation 09/13/2024 09/13/2024 09/13/2024 6:36 AM CDT documented as of this encounter Care Teams Mechanical System Technician Relationship Specialty Start Date End Date Jeff Strickland MD [address] [place] [address] PCP - General 03/05/18 [place] [address] [place] [address] [address] Orthopedic Surgery 03/28/17 documented as of this encounter
--- OUTSIDE RECORDS SUMMARY | 2024-11-29 01:10 | XMS_ITS | Encounter Summary ---
Author Organization [facility] Address [address] [place] [address] Care Team Providers Care College Physics Instructor Name Role Phone Jeff Strickland MD Primary Care Provider Chan Nicholas MD Unavailable [phone] Alan Mccall MD Unavailable [phone] Pepito Haro MD PhD Unavailable [phone] Solange Guido MD Unavailable [phone] Encounter Details Date Type Department Care Team (Late st Contact Info) Description 07/26/2024 Orders Only [facility] Health Information Management [address] [place] [address] Scanning, Provider Social History Tobacco Use Types Packs/Day Years Used Date Smoking Tobacco: Never Smokeless Tobacco: Never Alcohol Use Standard Drinks/Week Comments Yes 0 (1 standard drink = 0.6 oz pur e alcohol) rarely [facility] Utilities Answer Date Recorded In the past 12 months has [employer], gas, oil, or water company threatened [...] on file 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 Gender Identity Not on file Sexual Orientation [...] on filedocumented in this encounter Care Teams College Physics Instructor Relationship Specialty Start Date End Date Jeff Strickland MD [address] [place] [address] [address] [address] PCP - General Family Medicine 04/02/18 Chan Nicholas MD [facility] [address] [address] Consulting Physician Gastroenterology 11/24/18 Alan Mccall MD [address] [place] [address] [address] [address] Referring Physician Nephrology 11/24/18 Pepito Haro MD PhD [facility] [address] [place] [id number] Consulting Physician Neurosurgery 12/03/22 Solange Guido MD [address] [facility] [address] [place] [address] Referring Physician Cardiovascular Disease 07/23/23 documented as of this encounter
--- OUTSIDE RECORDS SUMMARY | 2024-11-29 01:10 | XMS_ITS | Patient Health Record ---
Author Organization [facility] As [employer] - Payments Anytime | Anywhere [facility] Address [address] [place] [address] Care Team Providers Care Tile Roofer Name Role Phone Trenton Hernandez Unavailable [phone] Reason For Referral No Information Medications Medication [...] UNIT)-FOLIC ACID 1 MG TABLET *Reorder from [facility] for eRx and Interaction Alerts* 02/26/2023 Active Azelastine HCl 137 MCG/SPRAY Solution Nasal 02/26/2023 Active Dilt-XR 240 MG Capsule Extended Release 24 Hour Oral 02/26/2023 Active Potassium Chloride ER 10 MEQ Tablet Extended Release Oral 02/26/2023 Active Mounjaro 2.5 MG/0.5ML Solution Pen-injector Subcutaneous *Reorder from [facility] for eRx and Interaction Alerts* 02/26/2023 Active Methocarbamol 500 MG Tablet Oral 02/26/2023 Active Levothyroxine Sodium 112 MCG Tablet Oral 02/26/2023 Active Atorvastatin Calcium 80 MG Tablet Oral 02/26/2023 Active Gabapentin 100 MG Capsule Oral 02/26/2023 Active SODIUM BICARBONATE 1,650 MG-CITRIC ACID 1,000 MG EFFERVESCENT TABLET *Reorder from [facility] for eRx and Interaction Alerts* 02/26/2023 Active Sevelamer Carbonate 800 MG Tablet Oral 02/26/2023 Active IPRATROPIUM BROMIDE 21 MCG (0.03 %) NASAL SPRAY *Reorder from [facility] for eRx and Interaction [...] ADHESIVE PATCH, MEDICATED TOPICAL *Pick strength-form from [facility] for eRX* 02/26/2023 Active Amoxicillin-Pot Clavulanate 875-125 MG Tablet Oral 02/26/2023 Active Amoxicillin 500 MG Capsule Oral 02/26/2023 Active guanFACINE HCl ER 3 MG Tablet Extended Release 24 Hour Oral 02/26/2023 Active Tamsulosin HCl 0.4 MG Capsule Oral 02/26/2023 Active SEVELAMER HCL 800 MG TABLET *Reorder from [facility] for eRx and Interaction Alerts* 02/26/2023 Active LEVOTHYROXINE 112 MCG CAPSULE *Reorder from [facility] for eRx and Interaction Alerts* 02/26/2023 Active ULTRA-FINE SHORT PEN NEEDLE 31 gauge x 5/16 NEEDLE, DISPOSABLE MISCELLANEOUS *Reorder from [facility] for eRx and Interaction Alerts* 02/26/2023 Active Tylenol PM Extra Strength *Pick strength-form from [facility] for eRX* 02/26/2023 Active Mounjaro 5 MG/0.5ML Solution Pen-injector Subcutaneous *Reorder from [facility] for eRx and Interaction [...] Date Coverage End Date [employer] [address] [place] [phone] [id number] GRACE INTERIANO Self - patient is the insured Medical (General) History Surgical History Surgery Date(Month/Year) Removal of gallbladder (01758) Cataract surgery (74263) 02/17/2013 Sinus surgery 02/17/2021 Cardiac stent 07/18/2021"
--- OUTSIDE RECORDS SUMMARY | 2024-11-29 01:10 | XMS_ITS | Encounter Summary ---
Author Organization [facility] Address [address] [place] [address] Phone Care Team Providers Care Intercell Connector Placer Name Role Phone Jeff Strickland MD Primary Care Provider Chan Nicholas MD Unavailable [phone] Alan Mccall MD Unavailable [phone] Lorna Lantigua MD Unavailable [phone] Juliette Savage RN Unavailable Peptio Haro MD PhD Unavailable Solange Guido MD Unavailable [phone] Letha Gil RN Unavailable Encounter Details Date Type Department Care Team (Late st Contact Info) Description 05/02/[address] 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 04/08/2023 04/10/2023 07/07/2023 3:06 AM C DT COVID: Suspected 04/10/2024 04/10/2024 04/11/2024 1:24 AM MARINE PILOT C. difficile suspected 04/11/2024 04/11/202404/11 1:21 PM MARINE PILOT documented as of this encounter Eye Exam [...] arcade Normal Periphery Normal Normal Care Teams Intercell Connector Placer Relationship Specialty Start Date End Date Jeff Strickland MD [address] [address] PCP - General Family Medicine 04/02/18 Chan Nicholas MD [address] [place] [address] [id number] Consulting Physician Gastroenterology 11/24/18 Alan Mccall MD [address] [place] [address] [address] Referring Physician Nephrology 11/24/18 Lorna Lantigua MD [facility] [address] [address] Consulting Physician Cardiology 11/24/18 07/22/23 Juliette Savage, RN [address] [place] [address] Nurse Navigator 06/04/21 03/14/22 Pepito Haro MD PhD [address] [place] [address] Consulting Physician Neurosurgery 12/03/22 Solange Guido MD [address] [facility] [address] [place] [address] Referring Physician Cardiovascular Disease 07/23/23 Letha Gil, RN [address] [facility] [address] [place] [address] SHOP Outpatient Manager Telemetry 04/14/24 04/18/24 documented as of this encounter
--- OUTSIDE RECORDS SUMMARY | 2024-11-29 01:10 | XMS_ITS | Patient Health Record ---
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 He denies tobacco, alcohol, or illicit drug abuse The patient is retired. 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 He denies tobacco, alcohol, or illicit drug abuse The patient is retired. 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 He denies tobacco, alcohol, or illicit drug abuse The patient is retired. 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 He denies tobacco, alcohol, or illicit drug abuse The patient is retired. 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 He denies tobacco, alcohol, or illicit drug abuse The patient is retired. 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 He denies tobacco, alcohol, or illicit drug abuse The patient is retired. 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 He denies tobacco, alcohol, or illicit drug abuse The patient is retired. 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 He denies tobacco, alcohol, or illicit drug abuse The patient is retired. 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 He denies tobacco, alcohol, or illicit drug abuse The patient is retired. 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 He denies tobacco, alcohol, or illicit drug abuse The patient is retired. 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 He denies tobacco, alcohol, or illicit drug abuse The patient is retired. 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 He denies tobacco, alcohol, or illicit drug abuse The patient is retired. 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 He denies tobacco, alcohol, or illicit drug abuse The patient is retired. 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) Active confirmed Localized, primary osteoarthritis of the shoulder region (416626687) Problem Pain in left hip (M25.552) Active confirmed Pain of left hi p joint (finding) (498022429603624) Problem Spondylosis without myelopathy or radiculopathy, lumbar region (M47.816) Active confirmed Lumbosacral spondylosis without myelopathy (01663529) Problem Other intervertebral disc degeneration, lumbar region (M51.36) Active confirmed Degeneration of lumbar intervertebral disc (65825626) Problem Radiculopathy, lumbar region (M54.16) Active confirmed Lumbar radiculopathy (936796733) Problem Radiculopathy, lumbosacral region (M54.17) Active confirmed Lumbosacral radiculopathy (5469722) Problem Osseous stenosis of neural canal of lumbar region (M99.33) Active confirmed Spinal stenosis of lumbar region (68900580) Problem senior care (current) use of anticoagulants (Z79.01) Active confirmed Long-term curre nt use of anticoagulant (134352153) Problem Other intervertebral disc degeneration, lumbar region [...] Date Provider Diagnosis [facility] [address] [place] [address] 01/12/2024 Sergio Stynowick Radiculopathy, lumba r region M54.16 ; Radiculopathy, lumbosacral region M54.17 ; Other chest pain R07.89 ; Other intervertebral disc degeneration, lumbar region M51.36 ; 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 ; Spondylosis without myelopathy or radiculopathy, lumbar region M47.816 and 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 teacher (current) use of anticoagulants Z79.01 [facility] [address] [place] [address] 01/19/2024 Sergio Stynowick Radiculopathy, lumba r region M54.16 ; Other intervertebral disc degeneration, lumbar region with discogenic back pain and lower extremity pain M51.362 and 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 [facility] [address] [place] [address] 02/03/2024 Sergio Stynowick Other chest pain R07.89 ; Pain in left knee M25.562 ; Radiculopathy, lumbar region M54.16 ; Other intervertebral disc degeneration, lumbar region M51.36 ; 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 ; Spondylosis without myelopathy or radiculopathy, lumbar region M47.816 and 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 teacher (current) use of anticoagulants Z79.01 [facility] [address] [place] [address] 03/03/2024 Sergio Stynowick Pain in left knee M25.562 ; Primary osteoarthritis, unspecified shoulder M19.019 ; Other chest pain R07.89 ; Radiculopathy, lumbar region M54.16 ; Other intervertebral disc degeneration, lumbar region M51.36 ; 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 ; Spondylosis without myelopathy or radiculopathy, lumbar region M47.816 ; 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 teacher (current) use of anticoagulants Z79.01 ; Pain in right shoulder M25.511 and Pain in left shoulder M25.512 [facility] [address] [place] [address] 03/08/2024 Sergio Stynowick Primary osteoarthritis, unspecified shoulder M19.019 [facility] [address] [place] [address] 03/31/2024 Sergio Schmitzick ASSESSMENTS Encounter Date Diagnosis [...] of lumbar region (ICD-10 - M99.33) 01/12/2024 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 teacher (current) use of anticoagulants (ICD-10 - Z79.01) The patient was instructed to discontinue aspirin for 6 days prior to the procedure. I made the patient aware that he will be at an increased risk for a thromboembolic event during this time and he is willing to accept this risk. The patient was instructed to notify his primary care physician and/or dispute specialist to obtain clearance prior to discontinuing this medication. 02/03/2024 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 teacher (current) use of anticoagulants (ICD-10 - Z79.01) 03/03/2024 Spondylosis without myelopathy or radiculopathy, lumbar region (ICD-10 - M47.816) 03/03/2024 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 teacher (current) use of anticoagulants (ICD-10 - Z79.01) [...] Coverage End Date [employer] MEDICARE [address] [place] [address] [id number] GRACE INTERIANO Self - patient is the insured MEDICAL (GENERAL) HISTORY Medical History History ICD Code Hypertension Hypothyroidism Diabetes type 2 Gastroesophageal reflux disease (GERD) Renal cell cancer Chronic kidney disease stage 4 Sleep apnea CHF Surgical History Surgery Date(Month/Year) Right total knee arthroplasty 08/2015 Cholecystectomy Hernia repair 2019 Cardiac stent 07/2020
--- OUTSIDE RECORDS SUMMARY | 2024-11-29 01:10 | XMS_ITS | Encounter Summary ---
Author Organization [facility] Address [address] [place] [address] Care Team Providers Care Mustanger Name Role Phone Deandre Bojorquez MD Unavailable [phone] Jeff Strickland MD Primary Care Provider [phone] Encounter Details Date Type Department Care Team (Late st Contact Info) Description 11/21/2023 Lab Requisition [facility] MAIN [facility] [address] [place] [phone] Alan Davenport MD [facility] [place] [address] Social History Tobacco Use Types Packs/Day Years Used Date Smoking Tobacco: Never Smokeless Tobacco: Never Alcohol Use Standard Drinks/Week Comments Not Currently 0 (1 standard drink = 0.6 oz pur e alcohol) socially in past Sex and Gender Information Value Date Recorded Sex Assigned at Male 07/02/2021 2:37 PM CDT Legal Sex Male 10:14 PM CAMPUS DIRECTOR Gender Identity Male 07/02/2021 2:37 PM [...] Visit [facility] - Endocrinology [address] [place] [address], [place] [address] Marbin Flores MD [address] [facility] DIV OF [place]BD [place] [address] Niraj Turner MD [facility] 2L [place] [address] 12/07/2024 1:30 PM CDT Office Visit [facility] - Vascular Surgery [address] [place] [address], [place] [address] Elroy Holcomb MD [address] [place] [address] [address] [place] [address] 2025 1:00 PM CAMPUS DIRECTOR Office Visit [facility] Neurology [address] [place] [address], [place] [address] Becky Wilson MD [address] [place] [address] documented as of this encounter Procedures Procedure Name Priority Date/Time Associated Diagnosis Comments HOLD HLA SPECIMEN Routine 11/18/2023 12: 16 PM CDT documented in this encounter Results * HOLD HLA SPECIMEN (11/18/2023 12:16 PM CDT) Hold HLA Specimen 11/21/2023 1:31 PM CDT [facility] ([facility]) Comment:The Hold HLA specime n has been received into the lab and will be held for 5 years at 4 degrees. Blood BLOOD SPECIMEN / Unknown 11/18/2023 12:16 PM CDT 11/21/2023 12:17 PM CDT Alan Davenport MD LAB - BLOOD BANK ORDERABLES F inal Result [facility] ([facility] [address] documented in this encounter Visit Diagnoses Not on filedocumented in this encounter Additional Health Concerns Infection Onset Date Last Indicated Resolved Time COVID-19 Under Investigation 09/13/2024 09/13/2024 09/13/2024 6:36 AM CDT documented as of this encounter Care Teams Mustanger Relationship Specialty Start Date End Date Jeff Strickland MD [address] [place] [address] PCP - General 03/05/18 [place] [address] [address] Orthopedic Surgery 03/28/17 documented as of this encounter
--- OUTSIDE RECORDS SUMMARY | 2024-11-29 01:10 | XMS_ITS | Clinical Summary ---
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 3mm 18mm Rap Ex Implanted:Qty: 1 on 08/04/2020 by Javier Lan MD at [facility] Stent Coronary [employer] 06/19/2022 [id number] Description:STENT Sys Cor Stent Xience Srr 3mm 8mm Rap Ex Implanted:Qty: 1 on 08/04/2020 by Javier Lan MD at [facility] Stent Coronary [employer] 09/03/2021 [id number] Description:stent Sys Cor Stent Sng Xd Monrl 3.5mm 48mm - [id number] Implanted:Qty: 1 on 08/18/2024 by Hannah Goodman MD at [facility] Mobi Scimed [id number] 09/07/2025 [id number] / [id number] / [id number] Sys Cor Stent Sng Xd Mr 4mm 24mm Dlv Sys - [id number] Implanted:Qty: 1 on 09/01/2024 by Vanessa Medina MD at [facility] Mobi Raji [id number] 10/19/2025 [id number] / [id number] / [id number] Restrata Implanted:Qty: 1 on 11/24/2024 by Elroy Holcomb MD at [facility] 09/24/2026 [id number] / / [id number] Explanted Type Area Operating Room Aide Device Identifier Shelf Expiration Date Model / Serial / Lot Cath Pace Eltrd Biplr Dist Tip Balln Flw - [id number] Explanted:Qty: 1 on 09/01/[address] [facility] [employer] [id number] 12/17/2025 [id number] / [id number] / [id number] Procedures Procedure Name Priority Date/Time Associated Diagnosis Comments GLUCOSE - POINT OF CARE Routine 11/24/2024 10:37 AM CDT LARYNGEAL MASK AIRWAY Routine 11/24/2024 9:47 AM CDT WV SIMON SUBQ TISSUE 20 SQ CM/< 11/24/2024 9:04 AM CDT Peripheral artery disease Special Needs Stu be admitted day prior. GLUCOSE - POINT OF CARE Routine 11/24/2024 8:27 AM CDT GLUCOSE - POINT OF CARE Routine 11/24/2024 6:01 AM CDT CBC W/O DIFFERENTIAL AM Draw 11/24/2024 1:30 AM CDT PAD (peripheral artery disease) BASIC METABOLIC PANEL (CALCIUM TOTAL) AM Draw 11/24/2024 1:30 AM CDT PAD (peripheral artery disease) MAGNESIUM BLOOD AM Draw 11/24/2024 1:30 AM CDT PAD (peripheral artery disease) PHOSPHORUS BLOOD AM Draw 11/24/2024 1:30 AM CDT PAD (peripheral artery disease) GLUCOSE - POINT OF CARE Routine 11/23/2024 11:25 PM CDT GLUCOSE - POINT OF CARE Routine 11/23/2024 6:01 PM CDT PERITONEAL DIALYSIS INPATIENT CCPD Routine 11/23/2024 5:32 PM CDT GLUCOSE - POINT OF CARE Routine 11/23/2024 3:09 PM CDT PT EVAL AND TREAT Routine 11/23/2024 1:5 5 PM CDT OT EVAL AND TREAT Routine 11/23/2024 1:5 5 PM CDT IR ANGIOGRAM RIGHT LEG Routine 11/23/2024 1:05 PM CDT PAD (peripheral artery disease) TYPE + SCREEN PANEL Routine 11/23/2024 9 :04 AM CDT GLUCOSE - POINT OF CARE Routine 11/23/2024 8:39 AM CDT IR ANGIOGRAM BILATERAL LEG Routine 11/12/2024 9:06 [...] PM CDT Confusion CARDIAC EKG ORDER 10/21/2024 12:47 PM CDT TROPONIN-I HIGH SENSITIVE REFLEX 1HOUR [...] 12:24 PM CDT Coronary artery disease involving nenana heart with angina pectoris, unspecified vessel or lesion type CARDIAC EKG ORDER 09/28/2024 12:17 PM CDT GLUCOSE - POINT OF CARE [...] CDT TSH REFLEX FREE T4 Routine 09/24/2024 12:02 PM CDT GLUCOSE - POINT OF CARE [...] mental status type CARDIAC EKG ORDER 09/20/2024 12:30 PM CDT TROPONIN-I HIGH SENSITIVE REFLEX 1HOUR [...] PM CDT LACTIC ACID BLOOD STAT 09/14/2024 12:28 PM CDT MAGNESIUM BLOOD Routine 09/14/2024 12:28 PM CDT Anemia, unspecified type COMPREHENSIVE METABOLIC PANEL Routine 09/14/2024 12:28 PM CDT Anemia, unspecified type CBC W/O DIFFERENTIAL Routine 09/14/2024 12:28 PM CDT Anemia, unspecified type GLUCOSE - POINT OF CARE Routine 09/14/2024 12:16 PM CDT PATHOLOGY TISSUE Routine 09/14/2024 11:45 AM CDT Toe gangrene (HCC) PERIPHERAL BLOCK Routine 09/14/2024 10:38 AM CDT WV AMPUTATION METATARSAL+TOE,SING LE 09/14/2024 10:23 AM CDT Toe gangrene (HCC) [...] unspecified type LACTIC ACID BLOOD STAT 09/13/2024 11:12 AM CDT Anemia, unspecified type GLUCOSE - [...] CDT TYPE + SCREEN PANEL STAT 09/12/2024 11:30 PM CDT DIFFERENTIAL MANUAL STAT 09/12/2024 10:03 PM CDT LACTIC ACID BLOOD REFLEX TO [...] 11:27 AM CDT PHOSPHORUS BLOOD Routine 09/08/2024 10:45 AM CDT MAGNESIUM BLOOD Routine 09/08/2024 10:45 [...] unspecified vessel or lesion type, unspecified whether nenana or transplanted heart CCL TEMPORARY PACEMAKER INSERTION Routine 09/01/2024 2:18 PM CDT Abnormal stress test Dyspnea on exertion Pre-kidney transplant, listed Coronary artery disease with angina pectoris, unspecified vessel or lesion type, unspecified whether nenana or transplanted heart Abnormal findings on cardiac catheterization CCL CORONARY ATHERECTOMY Routine 09/01/2024 2:18 PM CDT Abnormal stress test Dyspnea on exertion Pre-kidney transplant, listed Coronary artery disease with angina pectoris, unspecified vessel or lesion type, unspecified whether nenana or transplanted heart Abnormal findings on cardiac catheterization CCL CORONARY IVUS Routine 09/01/2024 2:1 8 PM CDT Abnormal stress test Dyspnea on exertion Pre-kidney transplant, listed Coronary artery disease with angina pectoris, unspecified vessel or lesion type, unspecified whether nenana or transplanted heart Abnormal findings on cardiac catheterization CCL STAGED PERC CORONARY INTERVENTION Routine 09/01/2024 2:18 PM CDT Abnormal stress test Dyspnea on exertion Pre-kidney transplant, listed Coronary artery disease with angina pectoris, unspecified vessel or lesion type, unspecified whether nenana or transplanted heart Abnormal findings on cardiac catheterization GLUCOSE - POINT OF CARE Routine 09/01/2024 10:00 AM CDT CBC W/O DIFFERENTIAL ANDIE 09/01/2024 9:57 AM CDT Coronary artery disease with angina pectoris, unspecified vessel or lesion type, unspecified whether nenana or transplanted heart Abnormal findings on cardiac catheterization BASIC METABOLIC PANEL (CALCIUM TOTAL) ANDIE 09/01/2024 9:57 AM CDT Coronary artery disease with angina pectoris, unspecified vessel or lesion type, unspecified whether nenana or transplanted heart Abnormal findings on cardiac catheterization HEPATITIS C ANTIBODY Routine 06/16/2024 4:15 PM CDT Pre-kidney transplant, listed ESRD (end stage renal disease) (HCC) 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 Glucose WB/POC 75 70 - 99 mg/dL 11/24/2024 10:38 AM CDT [facility] Specimen Type Arterial/C apillary 11/24/2024 10:38 AM CDT [facility] Blood BLOOD SPECIMEN / Unknown 11/24/2024 10:37 AM CDT 11/24/2024 10:38 AM CDT Elroy Holcomb MD LAB - POINT OF CARE ORDERA BLES Final Result [facility] [address] [place] [address], [facility] [phone] * LARYNGEAL MASK AIRWAY (11/24/2024 9:47 AM CDT) Narrative Quita Joe APRN-CRNA - 11/24/2024 9:47 AM CDT Quita Joe APRN-CRNA 11/24/2024 9:48 AM LMA Placement Procedure/LDA Note: Patient Location: OR. LMA Insertion Date/Time: 11/24/2024 9:36 AM Procedure: LMA Pretreatment: 100% O2 Induction: standard IV Mask Ventilation: not attempted Type: gel LMA Size: 5 Number of Attempts: 1. Placement verified by: CO2 monitor and chest auscultation Procedure Start Time: 11/24/2024 9:36 AM. Staff Section Anesthesia Provider: Krystal Soria DO Provider #1: Quita Joe APRN-CRNA, Performed the procedure. Krystal Soria DO GENERAL ANESTHESIA ORDERAB LES Final Result * (ABNORMAL) CBC W/O DIFFERENTIAL (11/24/2024 1:30 AM CDT) Only the most recent of9 resultswithin the time period is included. WBC 8.5 4.0 - 10.7 x10E9/L 11/24/2024 2:11 AM [facility] RBC Count 3.86(L) 4.30 - 5.80 x10E12/L 11/24/2024 2:11 AM [facility] Hemoglobin 11.0(L) 13.3 - 17.5 g/dL 11/24/2024 2:11 AM [facility] Hematocrit 33.9(L) 38.7 - 51.1 % 11/24/2024 2:11 AM [facility] MCV 87.8 80.0 - 98.0 fL 11/24/2024 2:11 AM [facility] MCH 28.5 26.7 - 33.6 pg 11/24/2024 2:11 AM [facility] MCHC 32.4 31.7 - 36.3 g/dL 11/24/2024 2:11 AM [facility] RDW-CV 16.0(H) 11.3 - 14.8 % 11/24/2024 2:11 AM [facility] Platelet Count 160 150 - 420 x10E9/L 11/24/2024 2:11 AM [facility] MPV 10.9 7.8 - 11.4 fL 11/24/2024 2:11 AM [facility] Blood BLOOD SPECIMEN / Unknown 11/24/2024 1:30 AM CDT 11/24/2024 2:05 AM CDT us Elroy Holcomb MD LAB - HEMATOLOGY ORDERABLE S Final Result [facility] [address] [place] [phone], [facility] [phone] * (ABNORMAL) BASIC METABOLIC PANEL (CALCIUM TOTAL) (11/24/2024 1:30 AM CDT) Only the most recent of7 resultswithin the time period is included. BUN 35(H) 7 - 26 mg/dL 11/24/2024 2:40 AM [facility] Creatinine 7.80(H) 0.71 - 1.16 mg/dL 11/24/2024 2:40 AM [facility] Sodium 137 136 - 145 mmol/L 11/24/2024 2:40 AM [facility] Potassium 3.1(L) 3.5 - 4.5 mmol/L 11/24/2024 2:40 AM [facility] Chloride 97(L) 98 - 107 mmol/L 11/24/2024 2:40 AM [facility] CO2 25 22 - 29 mmol/L 11/24/2024 2:40 AM [facility] Glucose 216(H) 70 - 99 mg/dL 11/24/2024 2:40 AM [facility] Calcium 8.5 8.4 - 10.2 mg/dL 11/24/2024 2:40 AM CDT [facility] Anion Gap 15 6 - 16 11/24/2024 2:40 AM T [facility] BUN/Creatinine Ratio 4(L) 7 - 23 11/24/2024 2:40 AM T [facility] Osmolality Calculated 299(H) 275 - 295 mOsm/kg 11/24/2024 2:40 AM T [facility] eGFR by CKD-EPI 7(L) >=90 mL/min/1.7 3 m2 11/24/2024 2:40 AM T [facility] Comment:Estimated Glomerular Filtration Rate (eGFR) calculated using the CKD-EPI Creatinine Equation (2020), per the National Kidney Foundation and [place] [employer] Nephrology recommendations. Blood BLOOD SPECIMEN / Unknown 11/24/2024 1:30 AM CDT 11/24/2024 2:05 AM CDT Elroy Holcomb MD LAB - CHEMISTRY ORDERABLES Final Result Performing Organization Address City/[facility]/ZIP Co de Phone Number [address] [address], [facility] [phone] * PHOSPHORUS BLOOD (11/24/2024 1:30 AM CDT) Only the most recent of9 resultswithin the time period is included. Phosphorus 5.0 2.8 - 5.1 mg/dL 11/24/2024 2:40 AM CDT [facility] Blood BLOOD SPECIMEN / Unknown 11/24/2024 1:30 AM CDT 11/24/2024 2:05 AM CDT Elroy Holcomb MD LAB - CHEMISTRY ORDERABLES Final Result [address] [address], [facility] [phone] * MAGNESIUM BLOOD (11/24/2024 1:30 AM CDT) Only the most recent of15 resultswithin the time period is included. Magnesium 1.6 1.6 - 2.6 mg/dL 11/24/2024 2:40 AM CDT [facility] Blood BLOOD SPECIMEN / Unknown 11/24/2024 1:30 AM CDT 11/24/2024 2:05 AM CDT us Elroy Holcomb MD LAB - CHEMISTRY ORDERABLES Final Result [facility] [address] [place] [address], [facility] [phone] * IR Angiogram Right Leg (11/23/2024 1:05 PM CDT) Anatomical Region Laterality Modality Lower Extremity X-Ray Angiograph y 11/23/2024 2:48 PM CDT Impressions 11/25/2024 1:59 PM CDT IMPRESSION: Right anterior tibial artery posterior tibial artery with multifocal stenosis and occlusions. Right anterior tibial artery and dorsalis pedis arteries successfully treated with balloon into plasty and in-line flow to the foot now via the anterior tibial artery. Patent peroneal artery to the ankle. Posterior tibial artery on the right with significant multifocal disease.. Total fluoroscopy time of 13 minutes. > Dictated by Griffin Rodriguez MD 11/23/2024 2:48 PM > Dictated by Legal Records Clerk I, Elroy Holcomb MD have personally reviewed and interpreted this examination/study. > Interpreting Provider: Elroy Holcomb MD on 11/25/2024 1:59 PM Narrative 11/25/2024 1:59 PM CDT PRE-PROCEDURE DIAGNOSIS: Bilateral chronic limb threatening ischemia with nonhealing wounds POST-PROCEDURE DIAGNOSIS: Same PROCEDURE: 1.Ultrasound guided access of the left common femoral artery 2.Right lower extremity angiogram 3.Shockwave lithotripsy of right anterior tibial artery 4.Balloon angioplasty of right dorsalis pedis and anterior tibial artery 5.Monitored procedural sedation totaling 120 minutes ATTENDING: Elroy Holcomb M.D. [employer]IGH [employer] TEACHER: Griffin Rodriguez MD ANESTHESIA: Moderate sedation with midazolam and fentanyl. Local anesthetic with 1% lidocaine. INDICATIONS FOR PROCEDURE: The patient is a 69-year-old male with history of bilateral great toe wounds that are currently nonhealing. Recently underwent angiogram of the left leg which revealed nonresectable disease. During which diagnostic right lower shotty angiogram revealed distal tibial disease.. The procedure, along with the risks, benefits [...] procedure and site. Limited ultrasound of the left common femoral artery demonstrated a patent vessel. Under the same ultrasound guidance, lidocaine 1% was injected into the tissue overlying the vessel. The left common femoral artery was accessed using a micropuncture needle under ultrasound guidance. The needle entry was documented. Images have been stored. Seldinger technique was used to place a microcatheter sheath. After a series of exchanges this was upsized for a 5 Beninese sheath. Glidewire advantage and Omni Flush were inserted into the abdominal aorta and access to the contralateral right common femoral artery was obtained. Catheter was advanced to the femoral head. Right lower extremity angiogram revealed patent common femoral artery, profunda, superficial femoral artery and popliteal artery. Distally there appear to be multifocal stenosis of the anterior tibial and posterior tibial artery. Peroneal artery appears patent and in-line to the ankle. The patient was heparinized with 5000 units of heparin and subsequent doses were given throughout the case as needed. The sheath was upsized for a 6 Beninese by 55 cm sheath and inserted into the superficial femoral artery. Using Glidewire and Glidewire catheter, the anterior tibial artery was accessed and confirmed with contrast injection. There appear to be multifocal stenosis and small short distance occlusions going only into the proximal dorsalis pedis. Using a 0.018 wire and 0.018 catheter, we were able to cross all lesions and gain access into the dorsalis pedis in the foot confirmed with angiogram. The catheter was then removed. 2.0 mm x 200 mm on angioplasty of the proximal dorsalis pedis and anterior tibial artery was then performed. Following this there was slight improvement of the lesions prior with dampened flow still remaining. A 2.5 mm shockwave lithotripsy was then performed throughout the length of the anterior tibial artery. Following this a 2.5 x 300 mm balloon into plasty was performed of the proximal dorsalis pedis and the entire length of the anterior tibial artery. After prolonged inflation the balloon was then removed. Catheter was reinserted into the anterior tibial artery and completion angiogram revealed no significant flow-limiting lesions and improved flow throughout the anterior tibial artery and into the dorsalis pedis. The catheter was then removed. The sheath was then exchanged out for a short 6 Beninese sheath. A 6 Beninese minx was then deployed according to manufacture settings, following manual pressure was held in the left groin was hemostatic.. COMPLICATIONS: None CONTRAST: 75 mL SEDATION: The attending was present for [...] of fentanyl with a start time of 11:30 hrs and an end time of 1:30 hrs for a total of 120 minutes. Vital signs were observed and noted to be within normal limits throughout the entirety of sedation as well as postprocedure in the recovery area until discharge. For details on pre-moderate sedation and post-moderate sedation patient evaluation, please review the evaluation forms in [facility]. For details on monitored clinical parameters during the intra-service sedation time, please review the procedure nurse documentation in [facility]. Procedure Note Elroy Holcomb MD - 11/25/2024 PRE-PROCEDURE DIAGNOSIS: Bilateral chronic limb threatening ischemiawith nonhealing wounds POST-PROCEDURE DIAGNOSIS: Same PROCEDURE: 1.Ultrasound guided access of the left common femoral artery 2.Right lower extremity angiogram 3.Shockwave lithotripsy of right anterior tibial artery 4.Balloon angioplasty of right dorsalis pedis and anterior tibial artery 5.Monitored procedural sedation totaling 120 minutes ATTENDING: Elroy Holcomb M.D. [employer] TEACHER: Griffin Rodriguez MD ANESTHESIA: Moderate sedation with midazolam and fentanyl. Localanesthetic with 1% lidocaine. INDICATIONS FOR PROCEDURE: The patient is a 69-year-old male with history of bilateral great toe wounds that are currently nonhealing. Recently underwent angiogram ofthe left leg which revealed nonresectable disease. During which diagnostic right lower shotty angiogram revealed distal tibial disease.. The procedure, along with the risks, benefits and alternatives werediscussed in detail, they were agreeable with the [...] procedure and site. Limited ultrasound of the left common femoral artery demonstrated apatent vessel. Under the same ultrasound guidance, lidocaine 1% was injectedinto the tissue overlying the vessel. The left common femoral artery was accessed using a micropuncture needle under ultrasound guidance. Theneedle entry was documented. Images have been stored. Seldinger technique was used to place a microcatheter sheath. After a series of exchanges thiswas upsized for a 5 Beninese sheath. Glidewire advantage and Omni Flush were inserted into the abdominalaorta and access to the contralateral right common femoral artery wasobtained. Catheter was advanced to the femoral head. Right lower extremityangiogram revealed patent common femoral artery, profunda, superficial femoralartery and popliteal artery. Distally there appear to be multifocal stenosis of the anterior tibial and posterior tibial artery. Peroneal artery appears patent and in-line to the ankle. The patient was heparinized with 5000 units of heparin and subsequent doses were given throughout the case as needed. The sheath was upsized for a 6 Beninese by 55 cm sheath andinserted into the superficial femoral artery. Using Glidewire and Glidewire catheter, the anterior tibial artery was accessed and confirmed with contrast injection. There appear to be multifocal stenosis and smallshort distance occlusions going only into the proximal dorsalis pedis. Using a 0.018 wire and 0.018 catheter, we were able to cross all lesions andgain access into the dorsalis pedis in the foot confirmed with angiogram. The catheter was then removed. 2.0 mm x 200 mm on angioplasty of theproximal dorsalis pedis and anterior tibial artery was then performed. Following this there was slight improvement of the lesions prior with dampenedflow still remaining. A 2.5 mm shockwave lithotripsy was then performed throughout the length of the anterior tibial artery. Following this a 2.5x 300 mm balloon into plasty was performed of the proximal dorsalis pedisand the entire length of the anterior tibial artery. After prolongedinflation the balloon was then removed. Catheter was reinserted into the anterior tibial artery and completion angiogram revealed no significant flow-limiting lesions and improved flow throughout the anterior tibial artery and into the dorsalis pedis. The catheter was then removed. The sheath was then exchanged out for a short 6 Beninese sheath. A 6 Frenchminx was then deployed according to manufacture settings, following manual pressure was held in the left groin was hemostatic.. COMPLICATIONS: None CONTRAST: 75 mL SEDATION: The attending was present for [...] micrograms of fentanylwith a start time of 11:30 hrs and an end time of 1:30 hrs for a total of 120 minutes. Vital signs were observed and noted to be within normal limits throughout the entirety of sedation as well as postprocedure in the recovery area until discharge. For details on pre-moderate sedation and post-moderate sedation patient evaluation, please review the evaluation forms in [facility]. For details on monitored clinical parameters during the intra-service sedation time, please review the procedure nurse documentation in [facility]. IMPRESSION: Right anterior tibial artery posterior tibial artery with multifocal stenosis and occlusions. Right anterior tibial artery and dorsalis pedis arteries successfully treated with balloon into plasty and in-line flowto the foot now via the anterior tibial artery. Patent peroneal artery tothe ankle. Posterior tibial artery on the right with significant multifocal disease.. Total fluoroscopy time of 13 minutes. > Dictated by Griffin Rodriguez MD 11/23/2024 2:48 PM > Dictated by Legal Records Clerk I, Elroy Holcomb MD have personally reviewed and interpreted this examination/study. > Interpreting Provider: Elroy Holcomb MD on 11/25/2024 1:59 PM us Elroy Holcomb MD IR ORDERABLES Final Resu lt * TYPE + SCREEN PANEL (11/23/2024 9:04 AM CDT) Only the most recent of2 resultswithin the time period is included. Antibody Screen NEG 10:19 AM CDT [facility] BLOOD BANK LAB ABO Rh O NEG 11/23/2024 10:19 AM CDT [facility] BLOOD BANK LAB Blood Bank BLOOD SPECIMEN / Unknown Venipuncture / Unknown 11/23/2024 9:04 AM CDT 11/23/2024 9:18 AM CDT us Elroy Holcomb MD LAB - BLOOD BANK ORDERABLE S Final Result [facility] BLOOD BANK LAB [address] [place] [address], [facility] [phone] * IR Angiogram Bilateral Leg (11/12/2024 9:06 AM CDT) Anatomical Region Laterality Modality Lower Extremity X-Ray Angiograph y 11/12/2024 9:47 AM CDT Impressions 11/12/2024 3:38 PM CDT IMPRESSION: Left lower extremity angiogram with patent DINING ROOM ATTENDANT, SFA with areas of < 50% stenosis, patent TP trunk with occlusions in the peroneal and PT shortly after origin, with single vessel runoff to the foot via the AT with occlusion in the DP in the foot. Right lower extremity angiogram with patent DINING ROOM ATTENDANT, SFA, and TP trunk with an occluded [...] Owusu 11/12/2024 9:47 AM > Dictated by Legal Records Clerk I, Elroy Holcomb MD have personally reviewed [...] monitored moderate sedation ATTENDING: Elroy Holcomb MD HIGH SCHOOL AGRICULTURE TEACHER: Griffin Rodriguez MD; Elroy Owusu MD ANESTHESIA: [...] exchanges this was upsized for a 5 Beninese sheath. A guidewire and omniflush catheter were [...] please review the evaluation forms in [facility]. For details on monitored clinical parameters during the intra-service sedation time, please review the procedure nurse documentation in [facility]. Procedure Note Elroy Holcomb MD - [...] monitored moderate sedation ATTENDING: Elroy Holcomb MD HIGH SCHOOL AGRICULTURE TEACHER: Griffin Rodriguez MD; Elroy Owusu MD ANESTHESIA: [...] of exchanges thiswas upsized for a 5 Beninese sheath. A guidewire and omniflush catheter werethen [...] please review the evaluation forms in [facility]. For details on monitored clinical parameters during the intra-service sedation time, please review the procedure nurse documentation in [facility]. IMPRESSION: Left lower extremity angiogram with patent DINING ROOM ATTENDANT, SFA with areas of < 50% stenosis, patent TP trunk with occlusions in the peroneal and PT shortly after origin, with single vessel runoff to the foot via the AT with occlusion in the DP in the foot. Right lower extremity angiogram with patent DINING ROOM ATTENDANT, SFA, and TP trunk with an occluded AT distally, andocclusion in peroneal at level of ankle, and multifocal areas of stenosis in thePT which appears occluded at the level of the ankle. Successful deploymentof 5 Fr Mynx control closure device. Total fluoroscopy time of 4.2min. Total contrast usage of 60mL > Dictated by Elroy Owusu 11/12/2024 9:47 AM > Dictated by Legal Records Clerk I, Elroy Holcomb MD have personally reviewed and interpreted this examination/study. > Interpreting Provider: Elroy Holcomb MD on 11/12/2024 3:38 PM us Elroy Holcomb MD IR ORDERABLES Final Resu lt * CARDIAC EKG ORDER (10/29/2024 4:31 PM [...] 71(H) <=35 ng/L 10/28/2024 3:13 AM CDT [facility] Delta Troponin I HS 10/28/2024 3:13 AM CDT [facility] Comment:Delta value intentio tito not calculated. Baseline to 1 hour specimen collection interval exceeded. Blood BLOOD SPECIMEN / Unknown Venipuncture / Unknown 10/28/2024 2:31 AM CDT 10/28/2024 2:37 AM CDT us Savanna Mcfarlane MD LAB - CHEMISTRY ORDERABLES Fi nal Result [facility] LABORATORY [facility] [address] [place] [address], [facility] [phone] * LACTIC ACID BLOOD REFLEX TO REPEAT (10/28/2024 2:31 AM CDT) Only the most recent of5 resultswithin the time period is included. Lactic Acid-Stat 1.9 <=2.0 mmol/L 10/28/2024 3:06 AM CDT [facility] Blood BLOOD SPECIMEN / Unknown Venipuncture / Unknown 10/28/2024 2:31 AM CDT 10/28/2024 2:37 AM CDT us Savanna Mcfarlane MD LAB - CHEMISTRY ORDERABLES Fi nal Result [address] [address], [facility] [phone] * XR Chest 2Vw (10/27/2024 11:58 PM CDT) Only the most recent of4 resultswithin the time period is included. Anatomical Region Laterality Modality Chest Digital Radiogra phy 10/28/2024 12:0 2 AM CDT Narrative 10/28/2024 3:32 AM CDT PROCEDURE: XR CHEST 2VW, DATE/TIME OF EXAM: 10/27/2024 11:58 PM, LOCATION [facility] INDICATION: R07.9: Chest pain, unspecified type [...] shoulders. > Dictated by Branden Jha MD, (assistant to the president). > Dictated by Legal Records Clerk I, Blake Plasencia MD have personally reviewed and interpreted this examination/study. > Interpreting Provider: Blake Plasencia MD on 10/28/2024 3:32 AM Procedure Note Blake Plasencia MD - 10/28/2024 PROCEDURE: XR CHEST 2VW, DATE/TIME OF EXAM: 10/27/2024 11:58 PM, LOCATION [facility] INDICATION: R07.9: Chest pain, unspecified type [...] shoulders. > Dictated by Branden Jha MD, (assistant to the president). > Dictated by Legal Records Clerk I, Blake Plasencia MD have personally reviewed and interpreted this examination/study. > Interpreting Provider: Blake Plasencia MD on 10/28/2024 3:32 AM Savanna Mcfarlane MD DIAGNOSTIC IMAGING ORDERABLES Final Result * (ABNORMAL) TROPONIN-I HIGH SENSITIVE BASELINE + 1HR (10/27/2024 11:53 PM CDT) Only the most recent of8 resultswithin the time period is included. Pathologist [facility] Troponin I High Sensitive 72(H) <=35 ng/L 10/28/2024 12:49 AM CDT [facility] Blood BLOOD SPECIMEN / Unknown Venipuncture / Unknown 10/27/2024 11:53 PM CDT 10/28/2024 12:12 AM CDT Savanna Mcfarlane MD LAB - CHEMISTRY ORDERABLES Fi nal Result [facility] [address] [place] [address], [facility] [phone] * (ABNORMAL) CBC W AUTO DIFFERENTIAL (10/27/2024 11:53 PM CDT) Only the most recent of11 resultswithin the time period is included. Pathologist [facility] WBC 7.8 4.0 - 10.7 x10E9/L 10/28/2024 12:26 AM CDT [facility] RBC Count 3.31(L) 4.30 - 5.80 x10E12/L 10/28/2024 12:26 AM [facility] Hemoglobin 9.0(L) 13.3 - 17.5 g/dL 10/28/2024 12:26 AM [facility] Hematocrit 27.9(L) 38.7 - 51.1 % 10/28/2024 12:26 AM [facility] MCV 84.3 80.0 - 98.0 fL 10/28/2024 12:26 AM [facility] MCH 27.2 26.7 - 33.6 pg 10/28/2024 12:26 AM [facility] MCHC 32.3 31.7 - 36.3 g/dL 10/28/2024 12:26 AM [facility] RDW-CV 15.9(H) 11.3 - 14.8 % 10/28/2024 12:26 AM [facility] Platelet Count 187 150 - 420 x10E9/L 10/28/2024 12:26 AM [facility] MPV 10.2 7.8 - 11.4 fL 10/28/2024 12:26 AM [facility] Neutrophil % 67.0 41.0 - 74.0 % 10/28/2024 12:26 AM [facility] Lymphocyte % 16.4(L) 17.0 - 47.0 % 10/28/2024 12:26 AM [facility] Monocyte % 14.0(H) 3.0 - 11.0 % 10/28/2024 12:26 AM [facility] Eosinophil % 1.9 0.0 - 7.0 % 10/28/2024 12:26 AM [facility] Basophil % 0.1 0.0 - 1.6 % 10/28/2024 12:26 AM [facility] Immature Granulocytes % 0.6 0.0 - 1.0 % 10/28/2024 12:26 AM [facility] Neutrophil Absolute 5.23 1.60 - 7.50 x10E9/L 10/28/2024 12:26 AM [facility] Lymphocyte Absolute 1.28 1.00 - 4.40 x10E9/L 10/28/2024 12:26 AM [facility] Monocyte Absolute 1.09(H) 0.15 - 1.00 x10E9/L 10/28/2024 12:26 AM [facility] Eosinophil Absolute 0.15 0.00 - 0.60 x10E9/L 10/28/2024 12:26 AM [facility] Basophil Absolute 0.01 0.00 - 0.13 x10E9/L 10/28/2024 12:26 AM [facility] Blood BLOOD SPECIMEN / Unknown Venipuncture / Unknown 10/27/2024 11:53 PM CDT 10/28/2024 12:13 AM T us Savanna Mcfarlane MD LAB - HEMATOLOGY ORDERABLES F inal Result [address] [address], [facility] [phone] * (ABNORMAL) COMPREHENSIVE METABOLIC PANEL (10/27/2024 11:53 PM T) Only the most recent of12 resultswithin the time period is included. BUN 34(H) 7 - 26 mg/dL 10/28/2024 12:45 AM [facility] Creatinine 7.86(H) 0.71 - 1.16 mg/dL 10/28/2024 12:45 AM [facility] Sodium 132(L) 136 - 145 mmol/L 10/28/2024 12:45 AM [facility] Potassium 3.5 3.5 - 4.5 mmol/L 10/28/2024 12:45 AM [facility] Chloride 95(L) 98 - 107 mmol/L 10/28/2024 12:45 AM [facility] CO2 25 22 - 29 mmol/L 10/28/2024 12:45 AM [facility] Glucose 104(H) 70 - 99 mg/dL 10/28/2024 12:45 AM [facility] Calcium 8.5 8.4 - 10.2 mg/dL 10/28/2024 12:45 AM [facility] Protein Total 5.6(L) 6.0 - 8.3 g/dL 10/28/2024 12:45 AM [facility] Albumin 2.2(L) 3.4 - 5.0 g/dL 10/28/2024 12:45 AM [facility] Bilirubin Total 0.3 0.2 - 1.2 mg/dL 10/28/2024 12:45 AM [facility] Alkaline Phosphatase 104 40 - 150 U/L 10/28/2024 12:45 AM [facility] ALT 56(H) 5 - 55 U/L 10/28/2024 12:45 AM [facility] AST 48(H) 5 - 34 U/L 10/28/2024 12:45 AM [facility] Anion Gap 12 6 - 16 10/28/2024 12:45 AM [facility] BUN/Creatinine Ratio 4(L) 7 - 23 10/28/2024 12:45 AM [facility] Osmolality Calculated 282 275 - 295 mOsm/kg 10/28/2024 12:45 AM [facility] Albumin/Globulin Ratio 0.6(L) 1.1 - 2.3 10/28/2024 12:45 AM [facility] eGFR by CKD-EPI 7(L) >=90 mL/min/1.7 3 m2 10/28/2024 12:45 AM [facility] Comment:Estimated Glomerular Filtration Rate (eGFR) calculated using the CKD-EPI Creatinine Equation (2020), per the National Kidney Foundation and [place] [employer] Neph[employer] recommendations. Blood BLOOD SPECIMEN / Unknown Venipuncture / Unknown 10/27/2024 11:53 PM CDT 10/28/2024 12:12 AM CDT us Savanna Mcfarlane MD LAB - CHEMISTRY ORDERABLES Fi nal Result [facility] [address] [place] [address], [facility] [phone] * LIPASE BLOOD (10/27/2024 11:53 PM CDT) Only the most recent of3 resultswithin the time period is included. Lipase 41 8 - 78 U/L 10/28/2024 12:45 AM CDT [facility] Blood BLOOD SPECIMEN / Unknown Venipuncture / Unknown 10/27/2024 11:53 PM CDT 10/28/2024 12:12 AM CDT Narrative [facility] - 10/28/2024 12:45 AM CDT Lipase results from the Matthew Alinity analyzer may not be comparable with other methodologies. us Savanna Mcfarlane MD LAB - CHEMISTRY ORDERABLES nal Result [place] [id number] [place] [address], [facility] [phone] * HLA ANTIBODY SCREEN LUM CLASS 2 SAB (10/27/2024 2:40 PM CDT) % PRA 0 11/04/2024 4:03 PM CDT [facility] ([facility]) Class 2 LUM SAB Moderate Risk DQ6 11/04/2024 4:03 PM CDT [facility] ([facility]) Class 2 SAB Test Date [id number] 11/04/2024 4:03 PM CDT [facility] ([facility]) Comment: Methodology - Luminex Bead-Based Immunoassay. This test was developed and its performance characteristics determined by the [facility]. It has not been cleared or [...] high complexity clinical laboratory testing. CLIA ID# [id number] Performed at: [facility], [address] [place] [phone] Search Specialist: Steven Gonzalez, Ph.D., D([facility]), Blood BLOOD SPECIMEN / Unknown No Charge Blood Draw / Unknown 10/27/2024 2:40 PM CDT 11/01/2024 2:41 PM CDT Alan Davenport MD LAB - BLOOD BANK ORDERABLES F inal Result Performing Organization Address [facility] de Phone Number [facility] ([facility]) [address] [place] [address] * HLA ANTIBODY SCREEN LUM CLASS 1 SAB (10/27/2024 2:40 PM CDT) Pathologist [facility] % PRA 0 11/04/2024 4:03 PM CDT [facility] ([facility]) Class 1 SAB Test Date [id number] 11/04/2024 4:03 PM CDT [facility] ([facility]) Comment: Methodology - Luminex Bead-Based Immunoassay. This test was developed and its performance characteristics determined by the [facility]. It has not been cleared [...] high complexity clinical laboratory testing. CLIA ID# [id number] Performed at: [facility], [address] [place] [phone] Search Specialist: Steven Gonzalez, Ph.D., D([facility]), Blood BLOOD SPECIMEN / Unknown No Charge Blood Draw / Unknown 10/27/2024 2:40 PM CDT 11/01/2024 2:41 PM CDT us Alan Davenport MD LAB - BLOOD BANK ORDERABLES F inal Result Performing Organization Address [facility] Co de Phone Number [facility] ([facility]) [address] [place] [address] * (ABNORMAL) PTH INTACT ([facility]) (10/21/2024 1:11 PM CDT) PTH Intact 316.8(H) 8.0 - 77.0 pg/mL 10/21/2024 1:56 PM CDT [facility] Blood BLOOD SPECIMEN / Unknown Lab Venipuncture / Unknown 10/21/2024 1:11 PM CDT 10/21/2024 1:23 PM CDT Result [facility] Becky Wilson MD LAB - CHEMISTRY ORDERABLES Fin al Result Performing Organization Address City/[facility]/ZIP Co de Phone Number [address] [address], [place] [phone] * LAB MISC TEST (10/21/2024 1:11 PM CDT) Test Name PHOSPHO-TAU 217 PLASMA 10/25/2024 12:29 PM CDT [facility] Test Result See Scanned Report 10/25/2024 12:29 PM CDT [facility] Comment Ref Lab [place] 10/25/2024 12:29 PM CDT [facility] Blood BLOOD SPECIMEN / Unknown Lab Venipuncture / Unknown 10/21/2024 1:11 PM CDT 10/21/2024 1:15 PM CDT Result [facility] Becky Wilson MD LAB SEND OUT Final Result Performing Organization Address [facility] Co de Phone Number [facility] [address] [place] [address] * AMMONIA (10/21/2024 1:11 PM CDT) Ammonia 30 <=72 umol/L 10/21/2024 1:32 PM CDT [facility] Blood BLOOD SPECIMEN / Unknown Lab Venipuncture / Unknown 10/21/2024 1:11 PM CDT 10/21/2024 1:15 PM CDT Result [facility] Becky Wilson MD LAB - CHEMISTRY ORDERABLES Fin al Result Performing Organization Address City/[facility]/ZIP Co de Phone Number [address] [id number] [phone] * CT Head Wo Contrast (10/19/2024 3:03 PM CDT) Only the most recent of4 resultswithin the time period is included. Anatomical Region Laterality Modality Head Computed Tomogra phy 10/19/2024 3:11 PM CDT Impressions 10/19/2024 3:41 PM CDT IMPRESSION: 1.No acute intracranial hemorrhage, territorial infarct, or significant mass effect. Report dictated by Saroj Linda MD, MD (assistant to the president). > Dictated by Legal Records Clerk I, Raymundo Hanson MD have personally reviewed [...] Report dictated by Saroj Linda MD, MD (assistant to the president). > Dictated by Legal Records Clerk I, Raymundo Hanson MD have personally reviewed and interpreted this examination/study. > Interpreting Provider: Raymundo Hanson MD on 10/19/2024 3:41 PM Alfreda Smith PA-[facility] CT ORDERABLES Final Result * EKG 12-LEAD (10/19/2024 2:21 PM CDT) Only the most recent of6 resultswithin the time period is included. Ventricular Rate 64 BPM [facility] MUSE Atrial Rate 64 BPM [facility] MUSE P-R Interval 146 ms [facility] MUSE QRS Duration ms 96 ms [facility] MUSE Q-T Interval ms 494 ms [facility] MUSE QTC Calculation (Bezet) 509 ms [facility] MUSE Calculated P [place] 69 degrees SL MUSE Calculated R [place] -63 degrees [facility] MUSE Calculated T [place] -90 degrees [facility] MUSE Interpretation EKG NORMAL SINUS RHYTHM LEFT ANTERIOR FASCICULAR BLOCK T WAVE ABNORMALITY, CONSIDER INFEROLATERAL ISCHEMIA PROLONGED QT ABNORMAL ECG . Confirmed by TSERING GOTTLIEB, DOUG ([id number]) on 10/23/2024 11:38:28 PM [facility] MUSE 10/19/2024 2:21 PM CDT 10/23/2024 11:38 PM CDT Alfreda Smith PA-C ECG ORDERABLES Edite d Result - Final [facility] MUSE * (ABNORMAL) B-TYPE NATRIURETIC PEPTIDE (10/17/2024 7:33 PM CDT) Only the most recent of3 resultswithin the time period is included. BNP 471(H) <100 pg/mL 10/17/2024 10:07 PM CDT [facility] LABORAT[facility] Comment: A decision threshold of 100 [...] LAB - CHEMISTRY ORDERABLES Fi nal Result [facility] [address] [place] [address], [facility] [phone] * XR CHEST 1VW PORTABLE (10/09/2024 7:27 PM CDT) Only the most recent of2 resultswithin the time period is included. Anatomical Region Laterality Modality Chest Digital Radiogra phy 10/09/2024 10:4 9 PM CDT Narrative 10/10/2024 1:17 AM CDT PROCEDURE: XR CHEST 1VW PORTABLE, DATE/TIME OF EXAM: 10/09/2024 7:27 PM, LOCATION [facility] INDICATION: R06.02: Short of breath on exertion ADDITIONAL CLINICAL INFORMATION: Ordering Provider Reason For Exam: r/o effusion, pneumonia Technologist Note: Additional: COMPARISON: Chest x-ray from 10/07/2024. FINDINGS/IMPRESSION: There is no focal consolidation, pleural effusion, or pneumothorax.The cardiomediastinal silhouette is normal. No displaced fractures identified. Hardware projecting over thoracic spine. > Dictated by Otis Bocanegra MD (assistant to the president). > Dictated by Legal Records Clerk I, Blake Plasencia MD have personally reviewed and interpreted this examination/study. > Interpreting Provider: Blake Plasencia MD on 10/10/2024 1:17 AM Procedure Note Blake Plasencia MD - 10/10/2024 PROCEDURE: XR CHEST 1VW PORTABLE, DATE/TIME OF EXAM: 10/09/2024 7:27PM, LOCATION [facility] INDICATION: R06.02: Short of breath on exertion ADDITIONAL CLINICAL INFORMATION: Ordering Provider Reason For Exam: r/o effusion, pneumonia Technologist Note: Additional: COMPARISON: Chest x-ray from 10/07/2024. FINDINGS/IMPRESSION: There is no focal consolidation, pleural effusion, or pneumothorax.The cardiomediastinal silhouette is normal. No displaced fracturesidentified. Hardware projecting over thoracic spine. > Dictated by Otis Bocanegra MD (assistant to the president). > Dictated by Legal Records Clerk I, Blake Plasencia MD have personally reviewed and interpreted this examination/study. > Interpreting Provider: Blake Plasencia MD on 10/10/2024 1:17 AM us Anjali Avelar CLAY STRUCTURE BUILDER AND SERVICER-CLINICAL STUDY MANAGER DIAGNOSTIC IMAGING O RDERABLES Final Result * (ABNORMAL) BLOOD GASES ABBEY + COOX PANEL (10/09/2024 4:39 PM CDT) Only the most recent of2 resultswithin the time period is included. pH Venous 7.41 7.32 - 7.42 pH 10/09/2024 5:04 PM [facility] pO2 Venous 34(L) 35 - 40 mmHg 10/09/2024 5:04 PM [facility] pCO2 Venous 44 40 - 50 mmHg 10/09/2024 5:04 PM [facility] HCO3 Venous 27.9 20 - 30 mmol/L 10/09/2024 5:04 PM [facility] Base Excess Venous 2.9(H) -2.0 - 2.0 mmol/L 10/09/2024 5:04 PM [facility] Oxyhemoglobin Venous 56.8 % 09/18 5:04 PM [facility] Comment:A^Absorbance Error Deoxyhemoglobin (HHB) Venous % 42.6 % 10/09/2024 5:04 PM [facility] Comment:A^Absorbance Error Methemoglobin <0.8 0.0 - 2.0 % 10/09/2024 5:04 PM [facility] Comment:A^Absorbance Error Carboxyhemoglobin 0.6 0.0 - 2.0 % 2024 5:04 PM [facility] Comment:A^Absorbance Error O2 Content Venous 7.7 Interpret within clinical context ml/dL 10/09/2024 5:04 PM [facility] Hemoglobin by COOX 9.6(L) 12.0 - 17.6 g/dL 10/09/2024 5:04 PM [facility] Comment:A^Absorbance Error O2 Saturation Venous 57(L) >=70 % 09/18 5:04 PM [facility] Comment:A^Absorbance Error FI O2 Mixed Venous 21.0 % 2024 5:04 PM [facility] Blood BLOOD SPECIMEN / Unknown Venipuncture / Unknown 10/09/2024 4:39 PM T 10/09/2024 4:[address] [facility] - 10/09/2024 5:04 PM [facility] Carboxyhemoglobin Normal Concentration: Non-smokers: 0-2%; Smokers: 0-9%; Toxic: >20% Anjali Avelar CLAY STRUCTURE BUILDER AND SERVICER-CLINICAL STUDY MANAGER LAB - BLOOD GASES OR DERABLES Final Result [facility] [address] [place] [address], [facility] [phone] * (ABNORMAL) URINALYSIS REFLEX MICROSCOPIC REFLEX CULTURE (10/07/2024 6:16 PM CDT) Color UA Yellow Yellow, Straw 10/07/2024 6:39 PM [facility] Clarity UA Ex. Turbid(A) Clear 10/07/2024 6:39 PM T [facility] Glucose UA Normal Normal 10/07/2024 6:39 PM [facility] Bilirubin UA Negative Negative 10/07/2024 6:39 PM [facility] Ketone UA Negative Negative 10/07/2024 6:39 PM [facility] Specific [place] UA 1.015 1.005 - 1.030 10/07/2024 6:39 PM [facility] Blood UA 3+(A) Negative 10/07/2024 6:39 PM [facility] pH UA 6.0 5.0 - 8.0 10/07/2024 6:39 PM [facility] Protein UA 2+(A) Negative 10/07/2024 6:39 PM [facility] Urobilinogen UA Normal Normal mg/dL 10/07/2024 6:39 PM [facility] Nitrite UA Negative Negative 10/07/2024 6:39 PM [facility] Leukocyte Esterase UA 500 MOLLY/uL(A) Negative 10/07/2024 6:39 PM [facility] RBC UA 51-100(A) 0 - 5 # /hpf 10/07/2024 6:39 PM [facility] WBC UA >100(A) 0 - 5 # /hpf 10/07/2024 6:39 PM [facility] Bacteria UA 2+(A) None Seen 10/07/2024 6:39 PM [facility] Squamous Epithelial Cells None Seen 0 - 5 /hpf 10/07/2024 6:39 PM [facility] Transitional Epithelial Cell UA 0-2(A) None Seen /HPF 10/07/2024 6:39 PM CDT [facility] Budding Yeast Moderate(A) None seen /hpf 10/07/2024 6:39 PM CDT [facility] Reflex Status Culture to follow 10/07/2024 6:39 PM CDT [facility] Urine URINE SPECIMEN OBTAINED VIA INDWELLING URINARY CATHETER / Unknown Collection / Unknown 10/07/2024 6:16 PM CDT 10/07/2024 6:19 PM CDT Narrative [facility] - 10/07/2024 6:39 PM CDT us Richard Sylvester MD LAB - URINALYSIS ORDERABLES Kenna l Result [facility] [address] [place] [id number], [facility] [phone] * (ABNORMAL) CULTURE URINE (10/07/2024 6:16 PM CDT) Culture Urine 50,000-100,000 CFU/mL Klebsiella pneumoniae(A) [facility] 10/09/2024 5:54 AM CDT [facility] MICROBIOLOGY Urine URINE SPECIMEN OBTAINED VIA [employer] / Unknown Collection / Unknown 10/07/2024 6:16 PM CDT 10/07/2024 6:19 PM CDT [facility] MICROBIOLOGY - 10/09/2024 5:54 AM CDT [...] MD LAB - MICROBIOLOGY ORDERABLES nal Result [facility] MICROBIOLOGY [address] [place] [address], [facility] [phone] * VAS Arterial Multilevel Le (10/05/2024 12:24 PM CDT) Anatomical Region Laterality Modality Intravascular Ul trasound 10/05/2024 11:3 4 AM CDT Narrative Procedure Note Elroy Holcomb MD - 10/05/2024 Guy Messina MD VASCULAR LAB ORDERABLES Edit ed Result - Final * (ABNORMAL) HEMOGLOBIN A1C (09/25/2024 5:06 AM CDT) Hemoglobin A1c 5.8(H) <=5.6 % 09/25/2024 8:19 AM CDT [facility] Estimated Average Glucose 120 mg/dL 09/25/2024 8:19 AM T [facility] Comment: HbA1c Interpretation: Normal : < 5.7% Pre-diabetes: 5.7-6.4% Diabetes: Equal to or greater than 6.5% Test results diagnostic of diabetes should be repeated for confirmation. Treatment target values recommended by ADA and other clinical organizations should be used to evaluate metabolic control in patients. Reference: [place] [employer] Association, Standards of Care in Diabetes [...] LAB - CHEMISTRY ORDERABLES F inal Result [address] [address], [facility] [phone] * (ABNORMAL) RENAL FUNCTION PANEL (09/24/2024 7:53 PM CDT) Only the most recent of3 resultswithin the time period is included. BUN 42(H) 7 - 26 mg/dL 09/24/2024 8:47 PM [facility] Creatinine 12.22(H) 0.71 - 1.16 mg/dL 09/24/2024 8:47 PM [facility] Sodium 136 136 - 145 mmol/L 09/24/2024 8:47 PM [facility] Potassium 3.9 3.5 - 4.5 mmol/L 09/24/2024 8:47 PM [facility] Chloride 97(L) 98 - 107 mmol/L 09/24/2024 8:47 PM [facility] CO2 24 22 - 29 mmol/L 09/24/2024 8:47 PM [facility] Glucose 93 70 - 99 mg/dL 09/24/2024 8:47 PM [facility] Albumin 1.8(L) 3.4 - 5.0 g/dL 09/24/2024 8:47 PM [facility] Calcium 8.4 8.4 - 10.2 mg/dL 09/24/2024 8:47 PM [facility] Phosphorus 7.0(H) 2.8 - 5.1 mg/dL 09/24/2024 8:47 PM CDT [facility] Anion Gap 15 6 - 16 09/24/2024 8:47 PM CDT [facility] BUN/Creatinine Ratio 3(L) 7 - 23 09/24/2024 8:47 PM CDT [facility] Osmolality Calculated 292 275 - 295 mOsm/kg 09/24/2024 8:47 PM CDT [facility] eGFR by CKD-EPI 4(L) >=90 mL/min/1.7 3 m2 09/24/2024 8:47 PM CDT [facility] Comment:Estimated Glomerular Filtration Rate (eGFR) calculated using the CKD-EPI Creatinine Equation (2020), per the National Kidney Foundation and [place] Society of Nephrology recommendations. Blood BLOOD SPECIMEN / Unknown Lab Venipuncture / Unknown 09/24/2024 7:53 PM CDT 09/24/2024 8:15 PM CDT us Guy Messina MD LAB - CHEMISTRY ORDERABLES F inal Result [address] [address], [place] [phone] * TSH REFLEX FREE T4 (09/24/2024 12:02 PM CDT) [facility] TSH 1.567 0.350 - 4.940 uIU/mL 09/24/2024 12:57 PM CDT [facility] Blood BLOOD SPECIMEN / Unknown 09/24/2024 12:02 PM CDT 09/24/2024 12:18 PM CDT us Alexis Rodrigez III, MD LAB - CHEMISTRY ORDERAB LES Final Result [address] [address], [place] [phone] * (ABNORMAL) VITAMIN B1 (09/24/2024 12:02 PM CDT) Pathologist [facility] Vitamin B1 Whole Blood 205(H) 70 - 180 nmol/L 09/27/2024 7:16 PM CDT [facility] Comment: INTERPRETIVE INFORMATION: Vitamin B1, Whole Blood This assay measures the concentration of thiamine diphosphate (TDP), the primary active form of vitamin B1. Approximately 90 percent of vitamin B1 present in whole blood is TDP. Thiamine and thiamine monophosphate, which comprise the remaining 10 percent, are not measured. This test was developed and its performance characteristics determined by [facility] [employer]. It has not been cleared or approved by the [place] Food and Drug Administration. This test was performed in a CLIA certified laboratory and is intended for clinical purposes. Performed By: [facility] [employer] [address] [place] [address] Supervisor Frame Assembly: Mk Egan MD, PhD CLIA Number: [id number] Blood BLOOD SPECIMEN / Unknown 09/24/2024 12:02 PM CDT 09/24/2024 12:11 PM CDT Alexis Rodrigez III, MD LAB - CHEMISTRY ORDERAB LES Final Result Performing Organization Address City/[facility]/ZIP Co de Phone Number [facility]) [address] [place] [address] * (ABNORMAL) VITAMIN B12 (09/24/2024 12:02 PM CDT) Pathologist [facility] Vitamin B12 1,151(H) 213 - 816 pg/mL 09/24/2024 12:57 PM CDT [facility] Blood BLOOD SPECIMEN / Unknown 09/24/2024 12:02 PM CDT 09/24/2024 12:18 PM CDT Alexis Rodrigez III, MD LAB - CHEMISTRY ORDERAB LES Final Result [address] [address], [facility] [phone] * (ABNORMAL) TROPONIN-I HIGH SENSITIVE (09/24/2024 5:08 AM CDT) Troponin I High Sensitive 83(H) <=35 ng/L 09/24/2024 6:10 AM CDT [facility] Blood BLOOD SPECIMEN / Unknown Lab Venipuncture / Unknown 09/24/2024 5:08 AM CDT 09/24/2024 5:28 AM CDT us Jennifer Winn MD LAB - CHEMISTRY ORDERABLES F inal Result [address] [address], [facility] [phone] * CT Lumbar Spine Wo Contrast (09/23/2024 [...] pelvis. Report dictated by Branden Jha MD (assistant to the president) 09/23/2024 5:45 PM. > Dictated by Legal Records Clerk I, Jana Clark MD have personally reviewed and interpreted this examination/study. > Interpreting Provider: Jana Clark MD on 09/23/2024 6:29 PM Narrative 09/23/2024 6:29 PM CDT PROCEDURE: CT HEAD WO CONTRAST, CT LUMBAR SPINE WO CONTRAST, CT THORACIC SPINE WO CONTRAST, CT CERVICAL SPINE WO CONTRAST, DATE/TIME OF EXAM: 09/23/2024 5:32 PM, LOCATION [facility] INDICATION: W19.XXXA: Fall, initial encounter R41.82: Altered mental status, unspecified altered mental status type ADDITIONAL CLINICAL INFORMATION: Ordering Provider Reason For Exam: r/o bleed, fx (accession [id number]), r/o fx (accession [id number]), r/o fx (accession [id number]), r/o fx (accession [id number]) Technologist Note: None. Additional: 69 year old [...] DATE/TIME OF EXAM: 09/23/2024 5:32 PM, LOCATION [facility] INDICATION: W19.XXXA: Fall, initial encounter R41.82: Altered mental status, unspecified altered mental status type ADDITIONAL CLINICAL INFORMATION: Ordering Provider Reason For Exam: r/o bleed, fx (accession [id number]), r/o fx (accession [id number]), r/o fx (accession [id number]), r/o fx (accession [id number]) Technologist Note: None. Additional: 69 year old [...] pelvis. Report dictated by Branden Jha MD (assistant to the president) 09/23/2024 5:45 PM. > Dictated by Legal Records Clerk I, Jana Clark MD have personally reviewed [...] pelvis. Report dictated by Branden Jha MD (assistant to the president) 09/23/2024 5:45 PM. > Dictated by Legal Records Clerk I, Jana Clark MD have personally reviewed and interpreted this examination/study. > Interpreting Provider: Jana Clark MD on 09/23/2024 6:29 PM Narrative 09/23/2024 6:29 PM CDT PROCEDURE: CT HEAD WO CONTRAST, CT LUMBAR SPINE WO CONTRAST, CT THORACIC SPINE WO CONTRAST, CT CERVICAL SPINE WO CONTRAST, DATE/TIME OF EXAM: 09/23/2024 5:32 PM, LOCATION [facility] INDICATION: W19.XXXA: Fall, initial encounter R41.82: Altered mental status, unspecified altered mental status type ADDITIONAL CLINICAL INFORMATION: Ordering Provider Reason For Exam: r/o bleed, fx (accession [id number]), r/o fx (accession [id number]), r/o fx (accession [id number]), r/o fx (accession [id number]) Technologist Note: None. Additional: 69 year old [...] DATE/TIME OF EXAM: 09/23/2024 5:32 PM, LOCATION [facility] INDICATION: W19.XXXA: Fall, initial encounter R41.82: Altered mental status, unspecified altered mental status type ADDITIONAL CLINICAL INFORMATION: Ordering Provider Reason For Exam: r/o bleed, fx (accession [id number]), r/o fx (accession [id number]), r/o fx (accession [id number]), r/o fx (accession [id number]) Technologist Note: None. Additional: 69 year old male PMH as noted below who presents with fall. The patient is AO x 3 but slow to speech. Present is his today. Patient's states that he has been acting like this since [facility] of [facility]. States he had a history [...] pelvis. Report dictated by Branden Jha MD (assistant to the president) 09/23/2024 5:45 PM. > Dictated by Legal Records Clerk I, Jana Clark MD have personally reviewed [...] pelvis. Report dictated by Branden Jha MD (assistant to the president) 09/23/2024 5:45 PM. > Dictated by Legal Records Clerk Reese, Jana Clark MD have personally reviewed and interpreted this examination/study. > Interpreting Provider: Jana Clark MD on 09/23/2024 6:29 PM Narrative 09/23/2024 6:29 PM CDT PROCEDURE: CT HEAD WO CONTRAST, CT LUMBAR SPINE WO CONTRAST, CT THORACIC SPINE WO CONTRAST, CT CERVICAL SPINE WO CONTRAST, DATE/TIME OF EXAM: 09/23/2024 5:32 PM, LOCATION [facility] INDICATION: W19.XXXA: Fall, initial encounter R41.82: Altered mental status, unspecified altered mental status type ADDITIONAL CLINICAL INFORMATION: Ordering Provider Reason For Exam: r/o bleed, fx (accession [id number]), r/o fx (accession [id number]), r/o fx (accession [id number]), r/o fx (accession [id number]) Technologist Note: None. Additional: 69 year old [...] DATE/TIME OF EXAM: 09/23/2024 5:32 PM, LOCATION [facility] INDICATION: W19.XXXA: Fall, initial encounter R41.82: Altered mental status, unspecified altered mental status type ADDITIONAL CLINICAL INFORMATION: Ordering Provider Reason For Exam: r/o bleed, fx (accession [id number]), r/o fx (accession [id number]), r/o fx (accession [id number]), r/o fx (accession [id number]) Technologist Note: None. Additional: 69 year old [...] pelvis. Report dictated by Branden Jha MD (assistant to the president) 09/23/2024 5:45 PM. > Dictated by Legal Records Clerk I, Jana Clark MD have personally reviewed [...] erosion. Report dictated by Branden Jha MD, (assistant to the president). > Dictated by Legal Records Clerk I, Nicole Bernabe MD have personally reviewed and interpreted this examination/study. > Interpreting Provider: Nicole Bernabe MD on 09/24/2024 9:17 AM Narrative 09/24/2024 9:17 AM CDT PROCEDURE: XR FOOT LEFT 3VW OR MORE, DATE/TIME OF EXAM: 09/23/2024 5:34 PM, LOCATION [facility] INDICATION: W19.XXXA: Fall, initial encounter ADDITIONAL [...] MORE, DATE/TIME OF EXAM: 09/23/2024 5:34PM, LOCATION [facility] INDICATION: W19.XXXA: Fall, initial encounter ADDITIONAL [...] erosion. Report dictated by Branden Jha MD, (assistant to the president). > Dictated by Legal Records Clerk INicole MD have personally reviewed and interpreted this examination/study. > Interpreting Provider: Nicole Bernabe MD on 09/24/2024 9:17 AM Moon Lewis PA-C DIAGNOSTIC IMAGING ORDERABLES F inal Result * (ABNORMAL) C-REACTIVE PROTEIN (09/23/2024 4:52 PM CDT) Only the most recent of2 resultswithin the time period is included. C-Reactive Protein 1.6(H) <=0.5 mg/dL 09/23/2024 5:42 PM CDT [facility] Blood BLOOD SPECIMEN / Unknown Venipuncture / Unknown 09/23/2024 4:52 PM CDT 09/23/2024 4:56 PM CDT Moon Lewis PA-C LAB - CHEMISTRY ORDERABLES Kenna l Result Performing Organization Address City/[facility]/ZIP Co de Phone Number [address] [address], [facility] [phone] * (ABNORMAL) ERYTHROCYTE SEDIMENTATION RATE (09/23/2024 4:52 PM CDT) Only the most recent of2 resultswithin the time period is included. Pathologist [facility] Erythrocyte Sedimentation Rate Westergren 116(H) 0 - 20 MM/HR 09/23/2024 5:21 PM CDT [facility] Blood BLOOD SPECIMEN / Unknown Venipuncture / Unknown 09/23/2024 4:52 PM CDT 09/23/2024 5:05 PM CDT Moon Lewis PA-C LAB - HEMATOLOGY ORDERABLES Fin al Result Performing Organization Address City/[facility]/ZIP Co de Phone Number [address] [address], [facility] [phone] * (ABNORMAL) DIFFERENTIAL MANUAL (09/23/2024 4:52 PM CDT) Only the most recent of3 resultswithin the time period is included. Neutrophil % 78(H) 41 - 74 % 09/23/2024 5:33 PM T [facility] Lymphocyte % 10(L) 17 - 47 % 09/23/2024 5:33 PM T [facility] Monocyte % 10 3 - 11 % 09/23/2024 5:33 PM [facility] Eosinophil % 1 0 - 7 % 09/23/2024 5:33 PM T [facility] Metamyelocyte % 1(H) 0% % 5:33 PM T [facility] Neutrophil Absolute 8.66(H) 1.60 - 7.50 x10E9/L 09/23/2024 5:33 PM T [facility] Lymphocyte Absolute 1.11 1.00 - 4.40 x10E9/L 09/23/2024 5:33 PM [facility] Monocyte Absolute 1.11(H) 0.15 - 1.00 x10E9/L 09/23/2024 5:33 PM T [facility] Eosinophil Absolute 0.11 0.00 - 0.60 x10E9/L 09/23/2024 5:33 PM [facility] RBC Morphology REVIEWED 09/23/2024 5:33 PM [facility] Microcytosis MODERATE(A) (none) 09/23/2024 5:33 PM [facility] Blood BLOOD SPECIMEN / Unknown Venipuncture / Unknown 09/23/2024 4:52 PM CDT 09/23/2024 5:05 PM CDT us Moon Lewis PA-C LAB - HEMATOLOGY ORDERABLES Fin al Result [facility] [address] [place] [address], [facility] [phone] * VANCOMYCIN LEVEL RANDOM (09/15/2024 4:10 PM CDT) Only the most recent of3 resultswithin the time period is included. Vancomycin Random 31.2 Therapeutic Ranges not established for random specimens ug/mL 09/15/2024 6:00 PM T [facility] Blood BLOOD SPECIMEN / Unknown Lab Venipuncture / Unknown 09/15/2024 4:10 PM CDT 09/15/2024 4:51 PM CDT Narrative [facility] - 09/15/2024 6:00 PM CDT See institution protocol. us Aureliano Pierce MD LAB - CHEMISTRY ORDERAB LES Final Result Performing Organization Address City/[facility]/ZIP Co de Phone Number [address] [address], [facility] [phone] * LACTIC ACID BLOOD (09/14/2024 3:32 PM CDT) Only the most recent of4 resultswithin the time period is included. [facility] Lactic Acid-Stat 2.0 <=2.0 mmol/L 09/14/2024 4:17 PM CDT [facility] Blood BLOOD SPECIMEN / Unknown Lab Venipuncture / Unknown 09/14/2024 3:32 PM CDT 09/14/2024 3:51 PM CDT us Alexis Rodrigez III, MD LAB - CHEMISTRY ORDERAB LES Final Result Performing Organization Address City/[facility] Co de Phone Number [address] [address], [facility] [phone] * (ABNORMAL) HGB HCT PANEL (09/14/2024 1:24 PM CDT) Only the most recent of2 resultswithin the time period is included. [facility] Hemoglobin 8.7(L) 13.3 - 17.5 g/dL 09/14/2024 1:41 PM CDT [facility] Hematocrit 25.6(L) 38.7 - 51.1 % 09/14/2024 1:41 PM CDT [facility] Blood BLOOD SPECIMEN / Unknown Venipuncture / Unknown 09/14/2024 1:24 PM CDT 09/14/2024 1:30 PM CDT us Alexis Rodrigez III, MD LAB - HEMATOLOGY ORDERA BLES Final Result [facility] [address] [place] [address], [facility] [phone] * PATHOLOGY TISSUE (09/14/2024 11:45 AM CDT) Case Report Surgical Pathology Report Case: [id number] Authorizing Provider: Elroy Holcomb MD Collected: 09/14/2024 11:45 AM Ordering Location: [facility] OP Received: 09/14/2024 12:47 PM Pathologist: Charmaine Myrick MD Specimen: Toe, Left, Left Great Toe 09/16/2024 11:40 AM CDT [facility] Final Diagnosis Toe, left great, amputation (A): - Skin ulceration and necrosis - Acute osteomyelitis - Bone margin negative for acute inflammation - Skin and soft tissue margin appears viable 09/16/2024 11:40 AM CDT [facility] at 1140 CDT Microscopic Description and Comment Microscopic examination substantiates the diagnosis. 09/16/2024 11:40 AM CDT [facility] Clinical History The patient is a 69-year-old man with first toe dry gangrene and history of PAD. 09/16/2024 11:40 AM CDT [facility] Gross Description The [...] hemorrhage. There are no additional gross lesions. Autographer sections are submitted as follows: A1-skin and soft tissue to resection margin, medial and dorsal surfaces A2-bony resection margin, decalcified A3-partial proximal cross-section with surrounding mummification, decalcified IKD 09/16/2024 11:40 AM CDT [facility] Pathologist Location at [facility] 09/16/2024 11:40 AM CDT [facility] Disclaimer The performance [...] attending (teaching) pathologist. 09/16/2024 11:40 AM CDT [facility] Embedded Images 09/16/2024 11:40 AM T [facility] Amputation, Traumatic (Gross Only) (Toe, Left) 09/14/2024 11:45 AM CDT 09/14/2024 12:47 PM CDT Comment:Pre-op diagnosis: Toe gangrene (HCC) [I96] Elroy Holcomb MD LAB - PATHOLOGY/CYTOLOGY O RDERABLES Final Result Performing Organization Address [facility]/State/[facility] Co de Phone Number [facility] [address] [place] [address], [facility] [phone] * Peripheral Nerve Block (09/14/2024 10:38 AM [...] and assisted at appropriate periods.. us Olu Tyalor DO GENERAL ANESTHESIA ORDERAB LES Final Result * CULTURE FUNGUS OTHER+FUNGUS SMEAR (09/13/2024 8:08 PM CDT) Culture No fungus isolated MUSHTAQ 10/11/2024 8:05 AM CDT [facility] Fungus Stain No yeast or hyphae seen 10/11/2024 8:05 AM CDT [facility] Microbiology PERITONEAL DIALYSATE SPECIMEN / Unknown Collection / Unknown 09/13/2024 8:08 PM CDT 09/13/2024 8:10 PM CDT us Alexis Rodrigez III, MD LAB - MICROBIOLOGY PK ZENG Final Result [facility] [address] [place] [address], [facility] [phone] * DIFFERENTIAL MANUAL FLUID (09/13/2024 8:08 PM CDT) Fluid Source Peritoneal 09/13/2024 9:03 PM CDT [facility] Body Fluid Total Cell Count 100 x10E6/L 09/13/2024 9:03 PM CDT [facility] Neutrophils Fluid Percent 11 % 09/13/2024 9:03 PM CDT [facility] Lymphocytes Fluid Percent 6 % 09/13/2024 9:03 PM CDT [facility] Macrophages Fluid Percent 79 % 09/13/2024 9:03 PM CDT [facility] Mesothelial Cells Fluid Percent 4 % 09/13/2024 9:03 PM CDT [facility] Fluid PERITONEAL FLUID / Unknown Collection / Unknown 09/13/2024 8:08 PM CDT 09/13/2024 8:10 PM CDT [facility] - 09/13/2024 9:03 PM CDT No reference ranges established for body fluid differential cell counts. The test results must be integrated into the clinical context for interpretation. us Alexis Rodrigez III, MD LAB - BODY FLUID ORDERA BLES Final Result [facility] [address] [place] [address], [place] [phone] * CULTURE FLUID+GRAM STAIN (09/13/2024 8:08 PM CDT) Culture No growth MUSHTAQ 09/17/2024 12:38 AM CDT [facility] Gram Stain Light Polymorphonuclear cells 09/17/2024 12:38 AM CDT [facility] Gram Stain No organisms seen 025 12:38 AM CDT [facility] Other PERITONEAL DIALYSATE SPECIMEN / Unknown Collection / Unknown 09/13/2024 8:08 PM CDT 09/13/2024 8:10 PM CDT Alexis Rodrigez III, MD LAB - MICROBIOLOGY ORDE RABLES Final Result [facility] [address] [place] [address], [facility] [phone] * CULTURE ANAEROBE (09/13/2024 8:08 PM CDT) Culture No anaerobic organisms isolated MUSHTAQ 09/19/2024 8:26 AM CDT [facility] Microbiology PERITONEAL DIALYSATE SPECIMEN / Unknown Collection / Unknown 09/13/2024 8:08 PM CDT 09/13/2024 8:11 PM CDT us Alexis Rodrigez III, MD LAB - MICROBIOLOGY ORDE RABLES Final Result [facility] [address] [place] [address], [facility] [phone] * CELL COUNT W DIFFERENTIAL FLUID (09/13/2024 8:08 PM CDT) Fluid Source Peritoneal 09/13/2024 9:03 PM CDT [facility] Fluid Appearance CLEAR 09/13/2024 9:03 PM CDT [facility] Fluid Color YELLOW 09/13/2024 9:03 PM CDT [facility] Total Nucleated Cells Fluid 279 Reference Range Not Established x10E6/L 09/13/2024 9:03 PM CDT [facility] RBC Count Fluid <2,000 Reference Range Not Established x10E6/L 09/13/2024 9:03 PM CDT [facility] Fluid PERITONEAL FLUID / Unknown Collection / Unknown 09/13/2024 8:08 PM CDT 09/13/2024 8:10 PM CDT Narrative [facility] - 09/13/2024 9:03 PM CDT No reference ranges established for body fluid cell counts. Any reference ranges provided are derived from published literature. The test results must be integrated into the clinical context for interpretation. us Alexis Rodrigez III, MD LAB - BODY FLUID ORDERA BLES Final Result [facility] [address] [place] [address], [place] [phone] * VAS Bilateral Venous Duplex Le (09/13/2024 4:34 PM CDT) Anatomical Region Laterality Modality Lower Extremity Ultrasound 09/13/2024 4:18 PM CDT Narrative Procedure Note Lalit Castanon MD - 09/13/2024 Alexis Rodrigez III, MD VASCULAR LAB ORDERABLES Edited Result - Final * SARS-COV-2 (COVID-19) RAPID (09/13/2024 6:02 AM CDT) COVID-19 PCR Not detected Not detected 09/14/19 6:36 AM CDT [facility] Microbiology SPECIMEN FROM NASOPHARYNGEAL STRUCTURE / Unknown Collection / Unknown 09/13/2024 6:02 AM CDT 09/13/2024 6:04 AM CDT Narrative [facility] - 09/13/2024 6:36 AM CDT The [...] LAB - MICROBIOLOGY ORDERABLE S Final Result [address] [address], [facility] [phone] * TRANSFUSE RED BLOOD CELL LEUKOREDUCED UNIT(S) [...] > Dictated by Sera Chowdhury Dr, MD (assistant to the president). ITerry MD have personally reviewed and interpreted this examination/study. > Interpreting Provider: Terry Ramos MD on 09/13/2024 9:42 AM Narrative 09/13/2024 9:42 AM CDT PROCEDURE: CT ANGIO AORTA FOR DISSECTION, DATE/TIME OF EXAM: 09/13/2024 12:28 AM, LOCATION [facility] INDICATION: R10.9: Abdominal pain, unspecified abdominal [...] DATE/TIME OF EXAM: 09/13/2024 12:28 AM, LOCATION [facility] INDICATION: R10.9: Abdominal pain, unspecified abdominal [...] abdomen dated 08/04/2024. > Dictated by Sera Chowdhuyr Dr, MD (assistant to the president). I, Terry Ramos MD have personally reviewed and interpreted this examination/study. > Interpreting Provider: Terry Ramos MD on 09/13/2024 9:42 AM Yuriy Lopez MD CT ORDERABLES Final Result * PREPARE (CROSSMATCH) RBC UNIT(S), 1 Units (09/12/2024 11:30 PM CDT) Unit Description AS1 LR PRBC [facility] Unit ABO O [facility] Unit Rh NEG [facility] Product Number R43 [facility] B[facility] Unit Donor # [id number] [facility] Unit Status transfused [facility] Product Code [id number] [facility] Blood Type Barcode 9500 [facility] Expiration Date S BLOOD BANK LAB Blood Bank BLOOD SPECIMEN / Unknown 09/12/2024 11:30 PM CDT 09/12/2024 11:37 PM CDT Result [facility] Yuriy Lopez MD LAB - BLOOD BANK ORDERABLES Final Result [facility] BLOOD BANK LAB [address] [place] [address], [facility] [phone] * CULTURE BLOOD (09/12/2024 10:00 PM CDT) Only the most recent of4 resultswithin the time period is included. Culture No growth day 5 [facility] 09/18/2024 1:30 AM CDT [facility] MICRO[facility]OLOG[facility] Blood PERIPHERAL BLOOD / Unknown Venipuncture / Unknown 09/12/2024 10:00 PM CDT 09/12/2024 10:21 PM CDT Result [facility] Yuriy Lopez MD LAB - MICROBIOLOGY ORDERABLE S Final Result [facility]CRO[facility] [address] [place] [address], [facility] [phone] * VAS Bilateral Venous Mapping (09/07/2024 2:24 PM CDT) Anatomical Region Laterality Modality Upper Extremity, Lower Extremity Ultrasound 09/07/2024 1:53 PM CDT Narrative Procedure Note Elroy Holcomb MD - 09/08/2024 Result [facility] Allen Wing MD VASCULAR LAB ORDERABLES Edite d Result - Final * VAS ARTERIAL ANKLE ARM INDEX (09/06/2024 1:17 PM CDT) Anatomical Region Laterality Modality Ankle / Foot, Upper Extremity Ul trasound 09/06/2024 12:4 8 PM CDT Narrative Procedure Note Lalit Castanon MD - 09/07/2024 Sarah Mcgraw VASCULAR LAB ORDERABLES Edited Result - Final [...] thickening. Report dictated by Freddie Durham MD, (Legal Records Clerk). I, Junior Hurley MD have personally reviewed [...] thickening. Report dictated by Freddie Durham MD, (Legal Records Clerk). I, Junior Hurley MD have personally reviewed and interpreted this examination/study. > Interpreting Provider: Junior Hurley MD on 56:26 AM us Charmaine Khalil MD CT ORDERABLES Final Result * (ABNORMAL) POTASSIUM WHOLE BLD (09/01/2024 3:54 PM CDT) Potassium Whole Blood 3.1(L) 3.5 - 5.5 mmol/L 09/01/2024 4:05 PM CDT [facility] Blood WHOLE BLOOD SPECIMEN / Unknown Venipuncture / Unknown 09/01/2024 3:54 PM CDT 09/01/2024 3:57 PM CDT us Jaqueline Crews CLAY STRUCTURE BUILDER AND SERVICER-CLINICAL STUDY MANAGER LAB - CHEMISTRY ORDERABL ES Final Result Performing Organization Address City/State/[facility] Co de Phone Number [facility] [address] [place] [phone], [facility] [phone] * CCL STAGED PERC CORONARY INTERVENTION, CCL [...] 1.25Mm Diamondback catheter and using a [facility] Diamondback 360 Viperwire Adv wire. [...] DAPT Cardiology clinic f/u us Jaqueline Crews CLAY STRUCTURE BUILDER AND SERVICER-CLINICAL STUDY MANAGER CV CARDIAC CATH [facility] Final Result * HEPATITIS C ANTIBODY (06/16/2024 4:15 PM CDT) Hepatitis C Antibody Non-react sylvie Non-reac tive 06/16/2024 5:50 PM CDT [facility] Comment:Hepatitis C Antibody [...] LAB - CHEMISTRY ORDERABLES Fi nal Result [facility] [address] [place] [address], [facility] [phone] from Last 3 Months or Most Recently Relevant to Health Maintenance Insurance T AETNA MEDICARE ADV AETNA MEDICARE ADV * Guarantor: GRACE INTERIANO Account Type Relation to Patient Date of Phone Billing Address Personal/Family [address] [place] [address] * Guarantor: GRACE INTERIANO Account Type Relation to Patient Date of Phone Billing Address Personal/Family [address] [place] [address] Advance Directives * Full Code (Latest Code Status on File) Date Activated Date Inactivated Comments 11/23/2024 1:55 PM 11/24/2024 2:18 PM * Full Code Date Activated Date Inactivated Comments 09/24/2024 3:35 AM 09/25/2024 5:09 PM * Full Code Date Activated Date Inactivated Comments 09/13/2024 6:31 AM 09/16/2024 6:51 PM * Full Code Date Activated Date Inactivated Comments 09/04/2024 5:04 AM 09/08/2024 4:13 PM * Full Code Date Activated Date Inactivated Comments 09/01/2024 2:41 PM 09/01/2024 7:09 PM Care Teams Jerker Relationship Specialty Start Date End Date Jeff Strickland MD [address] [place] [address] PCP - General 03/05/18 [place] [id number] [address] Orthopedic Surgery 03/28/17
--- OUTSIDE RECORDS SUMMARY | 2024-11-29 01:10 | XMS_ITS | Encounter Summary ---
Author Organization [facility] Address [address] [place] [address] Care Team Providers Care Learning And Development Analyst Name Role Phone Deandre Bojorquez MD Unavailable [phone] Jeff Strickland MD Primary Care Provider [phone] Encounter Details Date Type Department Care Team (Late st Contact Info) Description 06/25/2024 Lab Requisition [facility] MAIN LAB [address] [place] [phone] Alan Davenport MD [facility] [place] [address] Social History Tobacco Use Types Packs/Day Years Used Date Smoking Tobacco: Never Smokeless Tobacco: Never Alcohol Use Standard Drinks/Week Comments Not Currently 0 (1 standard drink = 0.6 oz pur e alcohol) socially in past Sex and Gender Information Value Date Recorded Sex Assigned at Male 07/02/2021 2:37 PM CDT 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 Gender Identity Male 07/02/2021 2:37 PM CDT [...] Visit [facility] - Endocrinology [address] [place] [address], [place] [address] Marbin Flores MD [address] [facility] DIV [place] [address] Niraj Turner MD [facility]5 [facility] 2L [place] [address] 12/07/2024 1:30 PM CDT Office Visit [facility] - Vascular Surgery [address] [place] [address], [place] [address] Elroy Holcomb MD [address] [place] [address] 2L [place] [address] 2025 1:00 PM OCCUPATIONAL PSYCHOLOGIST Office Visit [facility] - Neurology [address] [place] [address], [place] [address] Becky Wilson MD [address] [place] [address] documented as of this encounter Procedures Procedure Name Priority Date/Time Associated Diagnosis Comments HOLD HLA SPECIMEN Routine 06/22/2024 11: 05 AM CDT documented in this encounter Results * HOLD HLA SPECIMEN (06/22/2024 11:05 AM CDT) Hold HLA Specimen 06/25/2024 12:32 PM CDT [facility] ([facility]) Comment:The Hold HLA specime n has been received into the lab and will be held for 5 years at 4 degrees. Blood BLOOD SPECIMEN / Unknown 06/22/2024 11:05 AM CDT 06/25/2024 11:05 AM CDT Alan Davenport MD LAB - BLOOD BANK ORDERABLES F inal Result [facility] [address] documented in this encounter Visit Diagnoses Not on filedocumented in this encounter Additional Health Concerns Infection Onset Date Last Indicated Resolved Time COVID-19 Under Investigation 09/13/2024 09/13/2024 09/13/2024 6:36 AM CDT documented as of this encounter Care Teams Learning And Development Analyst Relationship Specialty Start Date End Date Jeff Strickland MD [address] [place] [address] PCP - General 03/05/18 [place] [address] [address] Orthopedic Surgery 03/28/17 documented as of this encounter
--- OUTSIDE RECORDS SUMMARY | 2024-11-29 01:10 | XMS_ITS | Encounter Summary ---
Author Organization [facility] Address [address] [place] [address] Care Team Providers Care Video Library Assistant Name Role Phone Deandre Bojorquez MD Unavailable [phone] Jeff Strickland MD Primary Care Provider [phone] Encounter Details Date Type Department Care Team (Late st Contact Info) Description 10/28/2023 Lab Requisition [facility] MAIN LAB [address] [place] [id number] Alan Davenport MD [facility]1 [facility] OF [place] [address] Social History Tobacco Use Types Packs/Day Years Used Date Smoking Tobacco: Never Smokeless Tobacco: Never Alcohol Use Standard Drinks/Week Comments Not Currently 0 (1 standard drink = 0.6 oz pur e alcohol) socially in past Sex and Gender Information Value Date Recorded Sex Assigned at Male 07/02/2021 2:37 PM CDT 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 [place] 2L [place] [address] 12/07/2024 1:30 PM CDT Office Visit [facility] - Vascular Surgery [address] [place] [address], [place] [address] Elroy Holcomb MD [address] [place] [address] 2L [place] [address] 2025 1:00 PM CARBURIZING FURNACE OPERATOR Office Visit [facility] - Neurology [address] [place] [address], [place] [address] Becky Wilson MD [address] [place] [address] documented as of this encounter Procedures Procedure Name Priority Date/Time Associated Diagnosis Comments HOLD HLA SPECIMEN Routine 10/22/2023 3:5 0 PM CDT documented in this encounter Results * HOLD HLA SPECIMEN (10/22/2023 3:50 PM CDT) Hold HLA Specimen 10/28/2023 5:00 PM CDT [facility] ([facility]) Comment:The Hold HLA specime n has been received into the lab and will be held for 5 years at 4 degrees. Blood BLOOD SPECIMEN / Unknown 10/22/2023 3:50 PM CDT 10/28/2023 3:50 PM CDT Alan Davenport MD LAB - BLOOD BANK ORDERABLES F inal Result [facility] [address] documented in this encounter Visit Diagnoses Not on filedocumented in this encounter Additional Health Concerns Infection Onset Date Last Indicated Resolved Time COVID-19 Under Investigation 09/13/2024 09/13/2024 09/13/2024 6:36 AM CDT documented as of this encounter Care Teams Video Library Assistant Relationship Specialty Start Date End Date Jeff Strickland MD [address] [place] [address] PCP - General 03/05/18 [place] [address] [address] Orthopedic Surgery 03/28/17 documented as of this encounter
--- OUTSIDE RECORDS SUMMARY | 2024-11-29 01:10 | XMS_ITS | Encounter Summary ---
Author Organization [facility] Address [address] [place] [address] Care Team Providers Care Fitness Sales Consultant Name Role Phone Jeff Strickland MD Primary Care Provider Chan Nicholas MD Unavailable [phone] Alan Mccall MD Unavailable [phone] Pepito Haro MD PhD Unavailable Solange Guido MD Unavailable [phone] Encounter Details Date Type Department Care Team (Late st Contact Info) Description 07/28/2024 Orders Only [facility] [address] [place] [address] Scanning, Provider Social History Tobacco Use Types Packs/Day Years Used Date Smoking Tobacco: Never Smokeless Tobacco: Never Alcohol Use Standard Drinks/Week Comments Yes 0 (1 standard drink = 0.6 oz pur e alcohol) rarely [facility] Utilities Answer Date Recorded In the past 12 months has [employer] electric, gas, oil, or water company threatened [...] often do you attend chur ch or shinto services? Never 03/25/2023 Do you belong to any clubs o r organizations such as yarsanism groups, unions, fraternal or athletic groups, or [...] place to sleep or slept in a prison (including now)? 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 Gender Identity Not on file Sexual Orientation [...] on filedocumented in this encounter Care Teams Fitness Sales Consultant Relationship Specialty Start Date End Date Jeff Strickland MD [facility] [address] [place] [id number] PCP - General Family Medicine 04/02/18 Chan Nicholas MD [facility] [address] [address] Consulting Physician Gastroenterology 11/24/18 Alan Mccall MD [facility] [address] [address] Referring Physician Nephrology 11/24/18 Pepito Haro MD PhD [address] [place] [address] Consulting Physician Neurosurgery 12/03/22 Solange Guido MD [address] [facility] [address] [place] [address] Referring Physician Cardiovascular Disease 07/23/23 documented as of this encounter
--- OUTSIDE RECORDS SUMMARY | 2024-11-29 01:10 | XMS_ITS | Encounter Summary ---
Author Organization [facility] Address [address] [place] [address] Care Team Providers Care Speech Lang Path Name Role Phone Deandre Bojorquez MD Unavailable [phone] Jeff Strickland MD Primary Care Provider [phone] Encounter Details Date Type Department Care Team (Late st Contact Info) Description 09/30/2023 Lab Requisition [facility] MAIN LAB [address] [place] [phone] Alan Davenport MD [facility] OF [place] [address] Social History Tobacco Use Types Packs/Day Years Used Date Smoking Tobacco: Never Smokeless Tobacco: Never Alcohol Use Standard Drinks/Week Comments Not Currently 0 (1 standard drink = 0.6 oz pur e alcohol) socially in past Sex and Gender Information Value Date Recorded Sex Assigned at Male 07/02/2021 2:37 PM CDT Legal Sex Male 10:14 PM BROADCAST FIELD SUPERVISOR Gender Identity Male 07/02/2021 2:37 PM [...] Visit [facility] - Endocrinology [address] [place] [address], [place] [address] Marbin Flores MD [address] [facility] DIV OF [place] [address] Niraj Turner MD [facility]5 [facility] 2L Div [place] [address] 12/07/2024 1:30 PM CDT Office Visit [facility] - Vascular Surgery [address] [place] [address], [place] [address] Elroy Holcomb MD [address] [place] [address] 2L [place] [address] 2025 1:00 PM BROADCAST FIELD SUPERVISOR Office Visit [facility] - Neurology [address] [place] [address], [place] [address] Becky Wilson MD [address] [place] [address] documented as of this encounter Procedures Procedure Name Priority Date/Time Associated Diagnosis Comments HOLD HLA SPECIMEN Routine 09/24/2023 3:2 7 PM CDT documented in this encounter Results * HOLD HLA SPECIMEN (09/24/2023 3:27 PM CDT) Hold HLA Specimen 09/30/2023 4:32 PM CDT [facility] ([facility]) Comment:The Hold HLA specime n has been received into the lab and will be held for 5 years at 4 degrees. Blood BLOOD SPECIMEN / Unknown 09/24/2023 3:27 PM CDT 09/30/2023 3:27 PM CDT Alan Davenport MD LAB - BLOOD BANK ORDERABLES F inal Result [facility] [address] documented in this encounter Visit Diagnoses Not on filedocumented in this encounter Additional Health Concerns Infection Onset Date Last Indicated Resolved Time COVID-19 Under Investigation 09/13/2024 09/13/2024 09/13/2024 6:36 AM CDT documented as of this encounter Care Teams Speech Lang Path Relationship Specialty Start Date End Date Jeff Strickland MD [address] [place] [address] PCP - General 03/05/18 [place] [address] [address] Orthopedic Surgery 03/28/17 documented as of this encounter
--- OUTSIDE RECORDS SUMMARY | 2024-11-29 01:11 | XMS_ITS | Clinical Summary ---
Author Organization [facility] Address [address], [place] [address] Phone Care Team Providers Care Ship Design Teacher Name Role Phone Jeff Strickland MD Primary Care Provider [phone] Allergies No known active allergies Medications levothyroxine [...] tablet 3 0 Active Continuous Blood Gluc Carver And Checkerer Specials (FreeStyle Em Ada) device 1 each daily 0 Active Continuous Blood Gluc Sensor (FreeStyle Em Sensor System) misc 1 each once every 2 weeks 0 Active Lancets (OneTouch Delica Plus [id number]) misc OneTouch Delica Plus Lancet 33 gauge [...] 11/10/2019 Overview (12/17/2019): Kendall Carl 1955 Referring Treatment Plant Mechanic: Alan Mccall Dialysis Info: NOD GFR 13 Type: Time: (Not currently on dialysis) days Blood Type: O NEG Body mass index is 37.36 kg/m . ALERTS Block Cutter: needs to establish Past Medical History: Diagnosis Date Arthropathy RA. Dr Strickland manages. 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 CKD (chronic kidney disease), stage V Community acquired pneumonia 2018 [facility] hospitalized. Diabetes mellitus 20 years. Lantus pen. Esophageal reflux takes med Hypercholesteremia 5-10 yrs meds Hypertension takes meds Hypothyroidism meds 20 years Kidney stones 5-6 years ago had 2 in the same year. Malignancy right kidney 2012 Obstructive sleep apnea 3 years. [facility]. Angela remember doctors name Renal [...] is the impression of this social work specialist that Kendall Gillris has several positive factors for Kidney transplant candidacy from a psychosocial perspective. Patient appears to have appropriate knowledge of illness. Patient has sufficient insurance coverage and stable financial situation for post transplant needs. No concerns regarding substance abuse, legal issues, or mental health needs. Patient has adequate support system and appropriate discharge plan. Plan: music worker to provide supportive services as needed. Patient appears to be a reasonable candidate for transplant from a psychosocial perspective. -Post transplant arrangement forms are needed prior to being listed. -Updated toxicology results needed, per protocol Psychiatric Consult Recommended: No Transplant Business Reporting Developer: Joy Tam LCSW RD: 11/09/2019 BMI= [...] nephrectomy. 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 [id number] Immunizations Immunization Administration Dates Next Due Influenza [...] Insurance AETNA PM INTERFACED INSURANCE Care Teams Ship Design Teacher Relationship Specialty Start Date End Date Jeff Strickland MD [address] [facility] 162 [facility] [address] [place] [address] PCP - General Internal Medicine 07/15/18
--- OUTSIDE RECORDS SUMMARY | 2024-11-29 01:11 | XMS_ITS | Encounter Summary ---
Author Organization [facility] Address [address] [facility] [place] [address] Care Team Providers Care Endless Track Vehicle Mechanic Name Role Phone Deandre Bojorquez MD Unavailable [phone] Jeff Strickland MD Primary Care Provider [phone] Reason for Visit * Reason Onset Date Comments Post-Op 09/03/2024 Encounter Details Date Type Department Care Team (Late st Contact Info) Description 09/03/2024 Telephone [facility] - Cardiology [address] [facility], [facility] [address] [place] [address] Hannah Goodman MD [address] [facility] CARDIOLOG[facility] [address]L [place] [address] Post-Op Social History Tobacco Use Types Packs/Day [...] and heating? Not hard at all 09/04/2024 [facility] [place] [facility] Occupat ional [facility] - Occupational Stress [...] any time in the past 12 [facility], were you homeless or living in a nursing home (including now)? No 09/04/2024 Sex and Gender Information Value Date Recorded Sex Assigned at Male 07/02/2021 2:37 PM CDT Legal Sex Male 10:14 PM FAMILY MEDICINE CHAIR Gender Identity Male 07/02/2021 2:37 PM CDT Sexual Orientation Straight 07/02/2021 2: 37 PM CDT documented as of this encounter Functional Status * Functional and Cognitive Status Question Answer Date of Assessment Author Is person deaf or have deanne us hearing difficulty? No 09/06/2024 1:34 PM CDT Lakia Camarena RN Is person blind or have seri ous difficulty seeing? No 09/06/2024 1:34 PM Lakia Delgado RN Does person have serious difficulty walking/climbing stairs? Yes 09/06/2024 1:34 PM Lakia Delgado RN Does person have difficulty dressing/bathing? No 09/06/2024 1:34 PM Lakia Delgado RN Does person have difficulty doing errands alone? Yes 09/06/2024 1:34 PM Lakia Delgado RN Does person have difficulty concentrating/remembering/making decisions? No 09/06/2024 1:34 PM Lakia Delgado RN * Question Answer Date of Assessment Author Q1: How often do you have a drink containing alcohol? Monthly or less 09/04/2024 1:56 PM Esther Garner RN Q2: How many drinks containing alcohol do you have on a typical day when you are drinking? Patient does not drink 09/04/2024 1:56 PM Esther Garner RN Q3: How often do you have six or more drinks on one occasion? Less than monthly 09/04/2024 1:56 PM Esther Garner RN * AUDIT-C Score Answer Date of Assessment Author 2 09/04/2024 1:56 PM Robert Garner RN * Is person deaf or have serious hearing difficulty? Answer Date of Assessment Author No 09/01/2024 2:47 PM Jenny Garcia RN * Is person blind or have serious difficulty seeing? Answer Date of Assessment Author No 09/01/2024 2:47 PM Jenny Garcia RN * Does person have serious difficulty walking/climbing stairs? Answer Date of Assessment Author Yes 09/01/2024 2:47 PM Jenny Garcia RN * Does person have difficulty dressing/bathing? [...] confused post op Patient Call Back number: [phone] documented in this encounter Plan of Treatment Upcoming Encounters Date Type Department Care Team (Late st Contact Info) Description 12/06/2024 10:40 AM CDT [facility] [address] [place] [phone] Marbin Flores MD [address] [facility] DIV OF ABD [place] [address] Niraj Turner MD [address] [place] [address] [place] [address] 12/07/2024 1:30 PM CDT [facility] [address] [place] [phone] Elroy Holcomb MD [address] [facility] 2L DIV [place] [address] 2025 1:00 PM FAMILY MEDICINE CHAIR Office Visit [facility] - Neurology [facility]5 [facility], [place] [address] Becky Wilson MD [address] [place] [address] documented as of this encounter Visit Diagnoses Not on filedocumented in this encounter Additional Health Concerns Infection Onset Date Last Indicated Resolved Time COVID-19 Under Investigation 09/13/2024 09/13/2024 09/13/2024 6:36 AM CDT documented as of this encounter Care Teams Endless Track Vehicle Mechanic Relationship Specialty Start Date End Date Jeff Strickland MD [address] [place] [address] PCP - General 03/05/18 [place] [address] [place] [address] Orthopedic Surgery 03/28/17 documented as of this encounter
--- OUTSIDE RECORDS SUMMARY | 2024-11-29 01:11 | XMS_ITS ---
Author Organization [facility] Address [address] [place] [id number] Care Team Providers Care Hand Binder Stripper Name Role Phone Jeff Strickland MD Primary Care Provider Chan Nicholas MD Unavailable Alan Mccall MD Unavailable Pepito Haro MD PhD Unavailable Solange Guido MD Unavailable [phone] Dialysis Access Sites Type Status Location Placement [...] functions and awareness Disorientation, unspecified Other amnesia EGFR Routine 04/13/2024 5:06 AM BACK UP WORKER HEMOGLOBIN A1C STAT 04/10/2024 11:41 PM BACK UP WORKER LIPID PANEL STAT 04/10/2024 11:41 PM BACK UP WORKER from Last 3 Months or Most [...] 300 + = 14 units Active FA-vit Swavq-L-lezp-vitamin D3 (Dialyvite 800-Ultra D) 0.8-2,000 mg-unit tablet [...] total) by mouth 06/04/19 25 Active vitamins A,C,C-feqr-lzpmjb (PreserVision AREDS) 4,296 mcg-226 mg-90 mg capsule [...] No benefit to anti-VEGF. Can follow in [facility]. Assessment & Plan (07/05/2024 4:53 PM CDT): [...] damage Assessment & Plan (03/09/2024 6:25 PM BACK UP WORKER): Vision OD trends mild improvement, though [...] 03/26/2021 Assessment & Plan (03/26/2021 1:17 PM BACK UP WORKER): Enlarged mild sella turcica on a [...] units Assessment & Plan (03/26/2021 1:17 PM BACK UP WORKER): Chronic, uncontrolled, improving A1c today 7.7 [...] WNL Assessment & Plan (03/26/2021 1:16 PM BACK UP WORKER): Pt currently on Levothyroxine 112 mcg [...] 11/18/2018 Assessment & Plan (01/21/2019 2:02 PM BACK UP WORKER): Symptomatic. Will request for esophageal manometry. [...] that his most recent colonoscopy was in 2016 and that he was supposed to have [...] well Assessment & Plan (03/26/2021 1:16 PM BACK UP WORKER): On statin therapy Tolerating well Last [...] nephrectomy. 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 [id number] Immunizations Immunization Administration Dates Next Due Hep [...] = 0.6 oz pur e alcohol) rarely abusixities Answer Date Recorded In the past 12 months has [employer], gas, oil, or water [employer] threatened to shut off services in your [...] on file Legal Sex Male 2:23 AM BACK UP WORKER Gender Identity Not on file Sexual [...] CDT Respiratory Rate 16 04/13/2024 8:33 AM BACK UP WORKER Oxygen Saturation 98% 04/13/2024 8:33 AM BACK UP WORKER Inhaled Oxygen Concentration - - Weight [...] Selwyn Wong M.D. LC: MARC Report ID: [id number] Reading Location: [place] [address] Procedure Note Dolores Wong MD - 10/12/2024 [...] Selwyn Wong M.D. LC: MARC Report ID: [id number] Reading Location: [id number] us Provider Transcribed Order IMG MRI PROCEDURES Fi nal Result * (ABNORMAL) eGFR (04/13/2024 5:06 AM BACK UP WORKER) eGFR 5(L) >=60 mL/min/1. 73 m2 [...] last reviewed 2020. Blood 04/13/2024 5:06 AM BACK UP WORKER 04/13/2024 5:31 AM BACK UP WORKER us Saul Engle MD LAB BLOOD ORDERABLES Final Resul t [facility] [place] [address] * (ABNORMAL) Lipid panel (04/10/2024 11:41 PM BACK UP WORKER) Cholesterol 145 30 - 199 mg/dL [...] on 2017. HDL 22(L) >=40 mg/dL [facility] Comment: Interpretive Data Ages < [...] 2017. LDL, calculated See Comment <=129 [facility] Comment: Unable to calculate LDL [...] [facility] VANG Blood 04/10/2024 11:4 1 PM BACK UP WORKER 04/10/2024 11:55 PM BACK UP WORKER us Nicole Boo MD LAB BLOOD ORDERABLES Final Result [facility] Department [place] [address] from Last 3 Months or Most Recently Relevant to Health Maintenance
--- OUTSIDE RECORDS SUMMARY | 2024-11-29 01:11 | XMS_ITS | Encounter Summary ---
Author Organization [facility] Address [address] [place] [address] Care Team Providers Care Supervisor Money Room Name Role Phone Deandre Bojorquez MD Unavailable [phone] Jeff Strickland MD Primary Care Provider [phone] Encounter Details Date Type Department Care Team (Late st Contact Info) Description 02/04/2024 Lab Requisition [facility] [place] MAIN LAB [address] [place] [id number] Alan Davenport MD [facility] [place] [address] Social History Tobacco Use Types Packs/Day Years Used Date Smoking Tobacco: Never Smokeless Tobacco: Never Alcohol Use Standard Drinks/Week Comments Not Currently 0 (1 standard drink = 0.6 oz pur e alcohol) socially in past Sex and Gender Information Value Date Recorded Sex Assigned at Male 07/02/2021 2:37 PM CDT Legal Sex Male 10:14 PM AUTOMOTIVE FUEL SYSTEMS CONVERTER Gender Identity Male 07/02/2021 2:37 PM CDT [...] Visit [facility] - Endocrinology [address] [place] [address], [place] [address] Marbin Flores MD [address] [facility] DIV [place] [address] Niraj Turner MD [facility] 2L [place] [address] 12/07/2024 1:30 PM CDT Office Visit [facility] - Vascular Surgery [address] [place] [address], [place] [address] Elroy Holcomb MD [address] [place] [address] 2L [place] [address] 2025 1:00 PM AUTOMOTIVE FUEL SYSTEMS CONVERTER Office Visit [facility] - Neurology [address] [place] [address], [place] [address] Becky Wilson MD [address] [place] [address] documented as of this encounter Procedures Procedure Name Priority Date/Time Associated Diagnosis Comments HOLD HLA SPECIMEN Routine 01/27/2024 3:2 3 PM AUTOMOTIVE FUEL SYSTEMS CONVERTER documented in this encounter Results * HOLD HLA SPECIMEN (01/27/2024 3:23 PM AUTOMOTIVE FUEL SYSTEMS CONVERTER) Hold HLA Specimen 02/04/2024 4:31 PM AUTOMOTIVE FUEL SYSTEMS CONVERTER [facility] ([facility]) Comment:The Hold HLA specime n has been received into the lab and will be held for 5 years at 4 degrees. Blood BLOOD SPECIMEN / Unknown 01/27/2024 3:23 PM AUTOMOTIVE FUEL SYSTEMS CONVERTER 02/04/2024 3:23 PM AUTOMOTIVE FUEL SYSTEMS CONVERTER Alan Davenport MD LAB - BLOOD BANK ORDERABLES F inal Result [facility] ([facility]) [address] documented in this encounter Visit Diagnoses Not on filedocumented in this encounter Additional Health Concerns Infection Onset Date Last Indicated Resolved Time COVID-19 Under Investigation 09/13/2024 09/13/2024 09/13/2024 6:36 AM CDT documented as of this encounter Care Teams Supervisor Money Room Relationship Specialty Start Date End Date Jeff Strickland MD [address] [place] [address] PCP - General 03/05/18 [place] [address] [address] Orthopedic Surgery 03/28/17 documented as of this encounter
--- OUTSIDE RECORDS SUMMARY | 2024-11-29 01:11 | XMS_ITS | Encounter Summary ---
Author Organization [facility] Address [address] [place] [address] Care Team Providers Care Doper Operator Name Role Phone Deandre Bojorquez MD Unavailable [phone] Jeff Strickland MD Primary Care Provider [phone] Encounter Details Date Type Department Care Team (Late st Contact Info) Description 04/29/2024 Lab Requisition [facility] MAIN LAB [address] [place] [id number] Alan Davenport MD [facility] OF ABD [place] [address] Social History Tobacco Use Types Packs/Day Years Used Date Smoking Tobacco: Never Smokeless Tobacco: Never Alcohol Use Standard Drinks/Week Comments Not Currently 0 (1 standard drink = 0.6 oz pur e alcohol) socially in past Sex and Gender Information Value Date Recorded Sex Assigned at Male 07/02/2021 2:37 PM CDT Legal Sex Male 10:14 PM INSPECTOR FILTER TIP Gender Identity Male 07/02/2021 2:37 PM CDT [...] Visit [facility] - Endocrinology [address] [place] [address], [place] [address] Marbin Flores MD [address] [facility] DIV OF ABD [place] [address] Niraj Turner MD [facility] 2L [place] [address] 12/07/2024 1:30 PM CDT Office Visit [facility] - Vascular Surgery [address] [place] [address], [place] [address] Elroy Holcomb MD [address] [place] [address] 2L DIV [place] [address] 2025 1:00 PM INSPECTOR FILTER TIP Office Visit [facility] - Neurology [address] [place] [address], [place] [address] Becky Wilson MD [address] [place] [address] documented as of this encounter Procedures Procedure Name Priority Date/Time Associated Diagnosis Comments HOLD HLA SPECIMEN Routine 04/27/2024 1:4 8 PM CDT documented in this encounter Results * HOLD HLA SPECIMEN (04/27/2024 1:48 PM CDT) Hold HLA Specimen 04/29/2024 3:02 PM CDT [facility] ([facility]) Comment:The Hold HLA specime n has been received into the lab and will be held for 5 years at 4 degrees. Blood BLOOD SPECIMEN / Unknown 04/27/2024 1:48 PM CDT 04/29/2024 1:49 PM CDT Alan Davenport MD LAB - BLOOD BANK ORDERABLES F inal Result [facility] ([facility] [address] documented in this encounter Visit Diagnoses Not on filedocumented in this encounter Additional Health Concerns Infection Onset Date Last Indicated Resolved Time COVID-19 Under Investigation 09/13/2024 09/13/2024 09/13/2024 6:36 AM CDT documented as of this encounter Care Teams Doper Operator Relationship Specialty Start Date End Date Jeff Strickland MD [address] [place] [address] PCP - General 03/05/18 [place] [address] [address] Orthopedic Surgery 03/28/17 documented as of this encounter
--- OUTSIDE RECORDS SUMMARY | 2024-11-29 01:11 | XMS_ITS | Encounter Summary ---
Author Organization [facility] Address [address] [place] [address] Care Team Providers Care Plumbing Hardware Assembler Name Role Phone Deandre Bojorquez MD Unavailable [phone] Jeff Strickland MD Primary Care Provider [phone] Encounter Details Date Type Department Care Team (Late st Contact Info) Description 09/10/2024 Telephone [facility] - Centralized Scheduling [address] [place] [address] Niraj Turner MD [facility] [place] [address] Social History Tobacco Use Types Packs/Day Years [...] and heating? Not hard at all 09/14/2024 [facility] - Occupational Stress Questionnaire Answer [...] PM CDT Legal Sex Male 10:14 PM BLIND EYELETTER Gender Identity Male 07/02/2021 2:37 PM CDT [...] 7:52 PM CDT Carey Og, PORSHA * AUDIT-C Score Answer Date of Assessment Author 0 [...] Visit [facility] - Endocrinology [address] [place] [address], [place] [address] Marbin Flores MD [address] [facility] DIV [place] [address] Niraj Turner MD [address] [place] [address] 2L [place] [address] 12/07/2024 1:30 PM CDT Office Visit [facility] - Vascular Surgery [address] [place] [address], [place] [address] Elroy Holcomb MD [address] [place] [address] 2L [place] [address] 2025 1:00 PM BLIND EYELETTER Office Visit [facility] - Neurology [address] [facility] [place] [place] [phone] Becky Wilson MD [address] [place] [address] documented as of this encounter Visit Diagnoses Not on filedocumented in this encounter Additional Health Concerns Infection Onset Date Last Indicated Resolved Time COVID-19 Under Investigation 09/13/2024 09/13/2024 09/13/2024 6:36 AM CDT documented as of this encounter Care Teams Plumbing Hardware Assembler Relationship Specialty Start Date End Date Jeff Strickland MD [address] [place] [address] PCP - General 03/05/18 [place] [address] [place] [address] Orthopedic Surgery 03/28/17 documented as of this encounter
--- OUTSIDE RECORDS SUMMARY | 2024-11-29 01:11 | XMS_ITS ---
Author Organization [facility] Address [facility] [place] [address] Care Team Providers Care Agricultural Research Technician Name Role Phone Jeff Strickland MD Primary Care Provider Chan Nicholas MD Unavailable [phone] Alan Mccall MD Unavailable Pepito Haro MD PhD Unavailable Solange Guido MD Unavailable [phone] Active Problems Problem Noted Date Diagnosed Date [...] damage Assessment & Plan (03/09/2024 6:25 PM ENVIRONMENTAL FIELD PROFESSIONAL): Vision OD trends mild improvement, though still [...] We discussed that genetic results would not tire changer. Given we have exhausted available treatment [...] 03/26/2021 Assessment & Plan (03/26/2021 1:17 PM ENVIRONMENTAL FIELD PROFESSIONAL): Enlarged mild sella turcica on a routine [...] units Assessment & Plan (03/26/2021 1:17 PM ENVIRONMENTAL FIELD PROFESSIONAL): Chronic, uncontrolled, improving A1c today 7.7 % [...] WNL Assessment & Plan (03/26/2021 1:16 PM ENVIRONMENTAL FIELD PROFESSIONAL): Pt currently on Levothyroxine 112 mcg oral [...] 11/18/2018 Assessment & Plan (01/21/2019 2:02 PM ENVIRONMENTAL FIELD PROFESSIONAL): Symptomatic. Will request for esophageal manometry. Continue [...] well Assessment & Plan (03/26/2021 1:16 PM ENVIRONMENTAL FIELD PROFESSIONAL): On statin therapy Tolerating well Last lipid [...] nephrectomy. 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 [id number] Current Treatment and Therapy Plans No current [...] were not included. Kendall Carl 1955 Referring Professor Of Business Administration: Alan Mccall Dialysis Info: NOD GFR 13 Type: Time: (Not currently on dialysis) days Blood Type: O NEG Body mass index is 37.36 kg/m . ALERTS Apiarist: needs to establish Past Medical History: Diagnosis Date Arthropathy RA. Dr Strickland manages. CHF (congestive heart failure) 2 yrs ago Ed Educational Aide is Dr. Becerra in [place]. CKD (chronic kidney disease), stage V Community acquired pneumonia 2018 [facility] hospitalized. Diabetes mellitus 20 years. Lantus pen. Esophageal reflux takes med Hypercholesteremia 5-10 yrs meds Hypertension takes meds Hypothyroidism meds 20 years Kidney stones 5-6 years ago had 2 in the same year. Malignancy right kidney 2012 Obstructive sleep apnea 3 years. [facility]. Cannont remember doctors name Renal cell [...] is the impression of this social media strategist that Kendall Carl has several positive factors for Kidney transplant candidacy from a psychosocial perspective. Patient appears to have appropriate knowledge of illness. Patient has sufficient insurance coverage and stable financial situation for post transplant needs. No concerns regarding substance abuse, legal issues, or mental health needs. Patient has adequate support system and appropriate discharge plan. Plan: sort line worker to provide supportive services as needed. Patient appears to be a reasonable candidate for transplant from a psychosocial perspective. -Post transplant arrangement forms are needed prior to being listed. -Updated toxicology results needed, per protocol Psychiatric Consult Recommended: No Transplant Transplant Immunologist: Joy Tam LCSW RD: 11/09/2019 BMI= 36.2, [...] 11/18/201803/25 Assessment & Plan (01/21/2019 2:02 PM ENVIRONMENTAL FIELD PROFESSIONAL): The pain is persistent. The patient described [...] has had extensive cardiac workup by the neurology director including coronary angiogram. He has chest [...]
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
--- OUTSIDE RECORDS SUMMARY | 2024-11-29 01:11 | XMS_ITS | Clinical Summary ---
Author Organization [facility] Address [address] [place] [address] Phone Care Team Providers Care Soda Flaker Name Role Phone Jeff Strickland MD Primary Care Provider [phone] Allergies No known active allergies Medications pantoprazole [...] tablet Take 112 mcg by mouth daily store sales consultant. Active aspirin (ANGELLA) 325 mg tablet Take 325 mg by mouth daily. Active Vit C-Vit V-Kceiiu-DmLq-L utein (PRESERVISION) 226 mg-200 unit -5 mg-0.8 [...] Comments Blood Pressure 167/77 02/04/2019 9:16 AM RADIOGRAPHER MAMMOGRAPHER Pulse 64 02/04/2019 9:16 AM RADIOGRAPHER MAMMOGRAPHER Temperature 36.5 C (97.7 F) 02/04/2019 9:16 AM RADIOGRAPHER MAMMOGRAPHER Respiratory Rate 16 02/04/2019 9:16 AM RADIOGRAPHER MAMMOGRAPHER Oxygen Saturation 97% 02/04/2019 9:16 AM RADIOGRAPHER MAMMOGRAPHER Inhaled Oxygen Concentration - - Weight 113.4 kg (250 lb) 02/04/2019 9:16 AM RADIOGRAPHER MAMMOGRAPHER Height 175.3 cm (5' 9) 02/04/2019 9:16 AM RADIOGRAPHER MAMMOGRAPHER Body Mass Index 36.92 02/04/2019 9:16 AM RADIOGRAPHER MAMMOGRAPHER Plan of Treatment Health Maintenance Due Date [...] ACCESS/TRUE BLUE PPO AETNA MEDICARE SUPPLEMENT PPO [facility] BLUE ACCESS/TRUE BLUE PPO Care Teams Soda Flaker Relationship Specialty Start Date End Date Jeff Strickland MD [address] [facility] [address] [place] [address] PCP - General Family Practice 01/01/19
--- OUTSIDE RECORDS SUMMARY | 2024-11-29 01:11 | XMS_ITS | Encounter Summary ---
Author Organization [facility] Address [address] [place] [address] Care Team Providers Care Audiology Director Name Role Phone Deandre Bojorquez MD Unavailable Jeff Strickland MD Primary Care Provider [phone] Encounter Details Date Type Department Care Team (Late st Contact Info) Description 03/12/2024 Lab Requisition [facility] MAIN LAB [address] [place] [id number] Alan Davenport MD [facility] OF ABD TRANSPLANT SURGERY [place], [place] [id number] Social History Tobacco Use Types Packs/Day Years Used Date Smoking Tobacco: Never Smokeless Tobacco: Never Alcohol Use Standard Drinks/Week Comments Not Currently 0 (1 standard drink = 0.6 oz pur e alcohol) socially in past Sex and Gender Information Value Date Recorded Sex Assigned at Male 07/02/2021 2:37 PM CDT Legal Sex Male 10:14 PM IC DESIGN ENGINEER Gender Identity Male 07/02/2021 2:37 [...] Office Visit [facility] - Endocrinology [address] [place] [address], [place] [address] Marbin Flores MD [address] [facility] DIV [place] [address] Niraj Turner MD [facility]5 [facility] 2L [place] [address] 12/07/2024 1:30 PM CDT Office Visit [facility] - Vascular Surgery [address] [place] [address], [place] [address] Elroy Holcomb MD [address] [place] [address] 2L [place] [address] 2025 1:00 PM IC DESIGN ENGINEER Office Visit [facility] - Neurology [address] [place] [address], [place] [address] Becky Wilson MD [address] [place] [address] documented as of this encounter Procedures Procedure Name Priority Date/Time Associated Diagnosis Comments HOLD HLA SPECIMEN Routine 03/05/2024 1:4 0 PM IC DESIGN ENGINEER documented in this encounter Results * HOLD HLA SPECIMEN (03/05/2024 1:40 PM IC DESIGN ENGINEER) Hold HLA Specimen 03/12/2024 3:00 PM IC DESIGN ENGINEER [facility] ([facility]) Comment:The Hold HLA specime n has been received into the lab and will be held for 5 years at 4 degrees. Blood BLOOD SPECIMEN / Unknown 03/05/2024 1:40 PM IC DESIGN ENGINEER 03/12/2024 1:40 PM IC DESIGN ENGINEER Alan Davenport MD LAB - BLOOD BANK ORDERABLES F inal Result [facility] ([facility]) [address] documented in this encounter Visit Diagnoses Not on filedocumented in this encounter Additional Health Concerns Infection Onset Date Last Indicated Resolved Time COVID-19 Under Investigation 09/13/2024 09/13/2024 09/13/2024 6:36 AM CDT documented as of this encounter Care Teams Audiology Director Relationship Specialty Start Date End Date Jeff Strickalnd MD [address] [place] [address] PCP - General 03/05/18 [place] [address] [address] Orthopedic Surgery 03/28/17 documented as of this encounter
--- OUTSIDE RECORDS SUMMARY | 2024-11-29 01:11 | XMS_ITS | Encounter Summary ---
Author Organization [facility] Address [address] [place] [address] Care Team Providers Care Authorization Nurse Name Role Phone Deandre Bojorquez MD Unavailable [phone] Jeff Strickland MD Primary Care Provider [phone] Encounter Details Date Type Department Care Team (Late st Contact Info) Description 03/30/2024 Lab Requisition [facility] MAIN LAB [address] [place] [phone] Alan Davenport MD [facility]1 [facility] OF [place] [address] Social History Tobacco Use Types Packs/Day Years Used Date Smoking Tobacco: Never Smokeless Tobacco: Never Alcohol Use Standard Drinks/Week Comments Not Currently 0 (1 standard drink = 0.6 oz pur e alcohol) socially in past Sex and Gender Information Value Date Recorded Sex Assigned at Male 07/02/2021 2:37 PM CDT Legal Sex Male 10:14 PM PROTECTION MANAGER Gender Identity Male 07/02/2021 2:37 PM CDT Sexual Orientation Straight 07/02/2021 2: 37 PM CDT documented as of this encounter Functional Status * Is person deaf or have serious hearing difficulty? Answer Date of Assessment Author No 08/04/2020 12:15 PM CDT Moinque Suárez RN * Is person blind or [...] Visit [facility] - Endocrinology [address] [place] [address], [place] [address] Marbin Flores MD [address] [facility] DIV [place] [address] Niraj Turner MD [facility] 2L [place] [address] 12/07/2024 1:30 PM CDT Office Visit [facility] - Vascular Surgery [address] [place] [address], [place] [address] Elroy Holcomb MD [address] [place] [address] 2L [place] [address] 2025 1:00 PM PROTECTION MANAGER Office Visit [facility] - Neurology [address] [place] [address], [place] [address] Becky Wilson MD [address] [place] [address] documented as of this encounter Procedures Procedure Name Priority Date/Time Associated Diagnosis Comments HOLD HLA SPECIMEN Routine 03/25/2024 2:5 1 PM PROTECTION MANAGER documented in this encounter Results * HOLD HLA SPECIMEN (03/25/2024 2:51 PM PROTECTION MANAGER) Hold HLA Specimen 03/30/2024 4:01 PM PROTECTION MANAGER [facility] ([facility]) Comment:The Hold HLA specime n has been received into the lab and will be held for 5 years at 4 degrees. Blood BLOOD SPECIMEN / Unknown 03/25/2024 2:51 PM PROTECTION MANAGER 03/30/2024 2:51 PM PROTECTION MANAGER Alan Davenport MD LAB - BLOOD BANK ORDERABLES F inal Result [facility] ([facility]) [address] documented in this encounter Visit Diagnoses Not on filedocumented in this encounter Additional Health Concerns Infection Onset Date Last Indicated Resolved Time COVID-19 Under Investigation 09/13/2024 09/13/2024 09/13/2024 6:36 AM CDT documented as of this encounter Care Teams Authorization Nurse Relationship Specialty Start Date End Date Jeff Strickland MD [address] [place] [address] PCP - General 03/05/18 [place] [address] [address] Orthopedic Surgery 03/28/17 documented as of this encounter
--- NOTE | 2024-11-29 01:31 | ED.CHESTPAIN ---
HPI - Chest Pain General Chief Complaint: Chest Pain Stated Complaint: CHEST PAIN/DIZZINESS Time Seen by Provider: 11/29/24 00:51 Source: patient and family Mode of arrival: ambulatory Limitations: no limitations History of Present Illness HPI narrative: Patient is a 69-year-old male presents to the emergency department accompanied by when he describes his girlfriend and she describes as his for chest pain, shortness of breath, dizziness that started around 7:00 p.m. tonight. Patient was at a wedding is sporadically steroid to feel some left-sided chest discomfort which she describes as a burning and sharp sensation that radiates up the back of his neck to the back of his head, has overall been constant, has not changed his started, denies history of this pain in the past, has a nose anything that makes it better or worse. Patient denies history of blood clots or use of blood thinners. Patient admits being on aspirin and Plavix with a history of a stent in his heart. Patient has a history a PAD in his legs with stenting and had an amputation of his left 1st toe by vascular in [facility] towards the end of August. Is seeing Wound Care for this and has not noticed any changes. Patient denies any antibiotic use. Patient denies any fevers, new cough, focal weakness, numbness, vision changes. Patient denies any dizziness currently, woke up this morning and felt like the room was spinning and an episode of nausea vomiting that was nonbloody and nonbilious any described and has appearing like the pills he had just ingested. Admits to a recent stress test in May, sees cardiology out of [place]. Denies any recent injuries, recent illness. Related Data Home Medications ?Medication ?Instructions ?Recorded ?Confirmed ?Last Taken ?Type aspirin 81 mg tablet,delayed 81 mg PO HS 02/01/19 11/11/24 08/04/24 History release (Sami Low Dose Aspirin) vit C 250 mg-vit E 200 unit-zinc 1 tablet PO Q12H 02/01/19 11/11/24 08/05/24 History 12.5 mg-copper 1 il-bal-ghdvjt tablet (ICaps AREDS2 (copper citrate)) cholecalciferol (vitamin D3) 125 125 mcg PO DAILY 10/01/22 11/11/24 08/05/24 History mcg (5,000 unit) tablet (Vitamin D3) atorvastatin 80 mg tablet 80 mg PO HS 09/02/23 11/11/24 08/04/24 History folic acid 0.8 mg-vit B comp with 800 tablet PO DAILY 04/03/24 11/11/24 08/05/24 History U-joho-vrntoyo D3 2,000 unit tablet (Dialyvite 800-Ultra D) insulin aspart U-100 100 unit/mL 1 sliding scale dose subcut TID 04/03/24 11/11/24 08/05/24 History (3 mL) subcutaneous pen (Novolog FlexPen U-100 Insulin aspart) insulin glargine 100 unit/mL (3 35 unit subcut HS 04/03/24 11/11/24 08/04/24 History mL) subcutaneous pen (Basaglar KwikPen U-100 Insulin) lisinopril 20 mg tablet 20 mg PO BID 04/21/24 11/11/24 08/05/24 History blood-glucose transmitter (Dexcom 04/23/24 11/11/24 Unknown History G6 Transmitter device) carvedilol 25 mg tablet 25 mg PO BID 06/17/24 11/11/24 08/05/24 History tamsulosin 0.4 mg capsule 0.4 mg PO HS 06/17/24 11/11/24 08/04/24 History clopidogrel 75 mg tablet 75 mg PO HS 07/25/24 11/11/24 08/04/24 History furosemide 80 mg tablet 160 mg PO BID 09/23/24 11/11/24 Unknown History midodrine 2.5 mg tablet 2.5 mg PO BID 11/09/24 11/11/24 Unknown History potassium chloride 20 mEq 20 meq PO DAILY 11/09/24 11/11/24 Unknown History tablet,extended release (K-Tab) Allergies Allergy/AdvReac Type Severity Reaction Status Date / Time oxycodone AdvReac Unknown Hallucinati Verified 11/28/24 20:30 ng Review of Systems Review of Systems: A 10 system review of systems was completed on the patient and is negative except for what is stated in the HPI. Nursing and ancillary documentation was reviewed. FORMERLY [facility] Past Medical History Medical History Brain fog Dementia Hypertensive heart disease with heart failure Chronic diarrhea Family history of colon cancer in father Chronic ethmoidal sinusitis Nasal congestion Bilateral impacted cerumen Allergic rhinitis Chronic sinusitis Chronic recurrent sinusitis Hypertensive CHF C. difficile colitis Arthritis Kidney stones Benign prostatic hyperplasia Coronary artery disease End-stage renal disease on peritoneal dialysis Obstructive sleep apnea Insulin dependent type 2 diabetes mellitus Renal cell carcinoma Status post partial left nephrectomy. Dyslipidemia Clostridium difficile infection Gastroesophageal reflux disease Depression with anxiety Hypothyroidism Cirrhosis Pituitary tumor Status post resection. Anemia Chronic diastolic (congestive) heart failure Hypertension Surgical History Surgical History History of open reduction and internal fixation (ORIF) procedure (11/2022) Screw fixation of sternal fracture. History of colonoscopy with polypectomy History of umbilical hernia repair History of inguinal hernia repair History of coronary artery stent placement History of cardiac catheterization (08/2020) Stent x2 to the LAD. History of arthroplasty of right knee History of cataract extraction History of pituitary surgery (11/2021) History of partial nephrectomy Partial left nephrectomy for renal cell carcinoma. History of cholecystectomy (2007) Family History Family History Mother Aneurysm Hypertension Cerebrovascular accident Heart murmur Father Carcinoma of colon Social History Social History Social History: Surrogate medical decision maker: Harriet Carl, spouse. Code status: Full code. Smoking status: Never smoker Second hand tobacco smoke exposure: No Alcohol intake: never Alcohol use details: rare, holidays Substance use: never Substance use type: does not use Do You Feel Safe in your Home?: Yes Lack of Transportation: No Lack of Food: Never True Current Housing: I Have Housing Concerned About Future Housing: No Difficulty Paying Gas/Electric Bills: No Difficulty Paying for Meds: No Currently Unemployed: No Education: Trade/Vocational Certificate Difficulty w/ Childcare or Family Care: No Living arrangements: with family Additional living arrangements comments: Lives with spouse in [place]. Occupation/Education: retired Additional occupation/education comments: [employer]. Spiritual care concerns: No Agree to blood products: Yes Exam Narrative: CONST: No acute distress. Well nourished. Obese. HENMT: Head is normocephalic and atraumatic. Moist mucous membranes. No posterior oropharynx erythema. EYES: No scleral icterus. No conjunctival injection or pallor. PERRL. No nystagmus. NECK: No meningeal signs. No carotid bruit bilaterally. RESP: Able to speak in full sentences. Normal respiratory effort. CTAB. CARDIO: Regular rate. Regular rhythm. 2+ posterior tibial and radial pulses bilaterally. GI: Nondistended. No tenderness to palpation. Soft. : No CVA tenderness to palpation. Peritoneal dialysis catheter in place. SKIN: No rashes or lesions noted on exposed skin. NEURO: Oriented x3. Moves all extremities. Extraocular motions are intact no drift to the bilateral upper extremities or bilateral lower extremities. No dysmetria with vzjdit-gr-rlii testing. Nrla-ak-zthe is normal bilaterally. Speech is clear and fluent. Visual hay intact to confrontation. Sensation intact to light touch throughout all 4 extremities. No facial asymmetry. EXTREM/MSK/BACK: No pedal edema. No midline vertebral tenderness to palpation or palpable step-offs. Left 1st digit amputated, with surrounding warmth and erythema and boggy tissue, mild exudate, granulation tissue present. No palpable fluctuance, no crepitus. PSYCH: Normal affect. Course Vital Signs Vital signs: Vital Signs Temperature 97.8 F 11/28/24 20:26 Pulse Rate 72 11/28/24 20:26 Respiratory Rate 20 11/28/24 20:26 Blood Pressure 157/72 H 11/28/24 20:26 Pulse Oximetry 97 11/28/24 20:26 Oxygen Delivery Room Air 11/28/24 20:26 Temperature 97.8 F 11/28/24 23:57 Pulse Rate 74 11/29/24 07:28 Respiratory Rate 13 11/29/24 07:28 Blood Pressure 147/57 H 11/29/24 07:28 Pulse Oximetry 99 11/29/24 07:28 Oxygen Delivery Room Air 11/28/24 20:26 MDM - Chest Pain MDM Narrative Medical decision making narrative: Patient presents with the above complaint. Initial vitals are remarkable for no significant abnormalities. Physical examination as noted above. Patient does not make urine and is on peritoneal dialysis. On review of records patient has had multiple visits to the emergency department for headaches, has multiple imaging of his head, patient denies this being the worse headache of his life for maximal intensity upon onset, similar to headaches he has had in the past, no indications for any CT imaging at this time of the head, CT head was canceled. Patient notes that the migraine cocktail is usually what helps some patient ordered migraine cocktail. Will obtain laboratory analysis, chest x-ray, left foot x-ray, famotidine, aspirin, EKG, continues cardiac monitoring, continuous pulse oximetry. Differential diagnosis also includes osteomyelitis is the foot wound appears to have surrounding erythema and warmth and boggy tissue, exudate present on the wound. Cultures ordered. Initial EKG performed at 2027 on 11/28/2024 revealed a sinus rhythm, rate of 70, right bundle-branch block, left anterior fascicular block, Q-wave in V1 and V2, no ST elevations or depressions, baseline artifact present, no significant change from previous EKG on file from November 13, 2024. CBC reveals a white blood cell count 10.6, hemoglobin of 10.7. Coags are within normal limits. Comprehensive metabolic panel reveals sodium 133, chloride 94, anion gap of 14, BUN of 37, creatinine 8.87, glucose of 164. Lipase 78. TSH is 1.99. BNP is greater than 30,000. Total creatine kinase is less than 20. Magnesium is 1.4. Phosphorus is 5.7. Lactic acid went from 3.9 down to 2.9 on repeat. Initial troponin was 0.078 with repeat troponin of 0.091. Ethyl alcohol is less than 10. COVID and influenza and RSV testing are negative Chest x-ray radiology interpretation is no acute cardiopulmonary findings. Left foot x-ray radiology impression is amputation of the 1st to with heterogenous appearance of the remainder of the proximal phalanx of the 1st toe. Unclear if this represents postsurgical change versus osteomyelitis. No evidence of fracture. Repeat EKG performed at 0609 on 11/29/2024 showed a rate of 71, rhythm is sinus rhythm, right bundle branch block, left axis deviation, left anterior fascicular block, Q-waves in V1 and V2, no significant changes from the 1st EKG. I spoke with the hospitalist on-call who accepts the patient for admission, requesting Nephrology and General surgery consultations. General surgery paged. Spoke with general surgery who recommends to have patient transferred to [facility] for continuity care. Patient requesting to leave against medical advice. Informed the patient that I have a call out to the [facility] line to get him transferred over to [facility]. Patient notes he does not want to be transferred wants to go home at this time, is refusing blood cultures, any further laboratory analysis, antibiotics, transfer. An extensive against medical advice was performed. The patient has requested to leave the ED against medical advice. The patient reason(s) for leaving include but are not limited to he does not want to be poked anymore, wants to go home, does not want to be transferred, has come to peace with his condition. I believe this patient is competent to refuse medical care. The patient is responding and asking questions appropriately. The patient is oriented to person, place and time. The patient demonstrates a normal mental capacity to make decisions regarding their healthcare. The patient is clinically sober and does not appear to be under the influence of any illicit drugs at the time of my evaluation. They do not appear delusional, suicidal, homicidal or experiencing hallucinating on my examination. I have explained to the patient that their workup to this point is concerning and I would like to continue with blood cultures, IV antibiotics, wound cultures, surgical evaluation, transfer, continued trending of troponins and EKGs. The patient has been advised of the risks, in layman terms, of leaving AMA which include, but are not limited to , permanent disability, loss of current lifestyle, delay in diagnosis. Alternatives have been offered including not drawing blood cultures or giving antibiotics if repeat IVs is is concerned if that means he will allow me to give him transferred into his care in addition I also offered ultrasound IV placement, but the patient remains steadfast in their wish to leave. The patient has been advised that, should they change their mind they are welcome to return to this hospital, or any other, at any time or follow up with their primary care physician. I attempted to explain that in no way does an AMA discharge mean that I do not want them to have the best medical care available. To this end, I attempted to provide referrals and discharge instructions. I have provided opportunity for questions and answered all questions to the best of my ability. The patient did sign AMA paperwork. Lab Data 11/29/24 02:17 11/29/24 02:17 Labs: Lab Results 11/29/24 11/29/24 11/29/24 Range/Units 02:17 02:17 05:05 WBC 10.6 H (4.5-10.0) K/mm3 RBC 3.76 L (4.6-6.20) M/mm3 Hgb 10.7 L (14.0-18.0) g/dL Hct 34.3 L (42.0-52.0) % MCV 91.2 (80-100) fl MCH 28.5 (26-34) pg MCHC 31.2 L (32-36) g/dl RDW 15.5 H (11.5-14.5) % Plt Count 179 (150-375) k/mm3 MPV 11.1 H (7.4-10.4) fl Immature Gran % (Auto) 1.0 H (0-0.5) % Neut % (Auto) 72.7 (45.5-73.1) % Lymph % (Auto) 13.5 L (18.3-44.2) % [place] % (Auto) 11.7 H (2.6-8.5) % Eos % (Auto) 0.9 (0-4.4) % Baso % (Auto) 0.2 (0.2-1.2) % Lymph # (Auto) 1.43 (0.9-3.2) K/mm3 [place] # (Auto) 1.2 H (0.1-0.6) K/mm3 Eos # (Auto) 0.1 (0-0.3) K/mm3 Baso # (Auto) 0.0 (0.0-0.1) K/mm3 Abs Immat Gran (auto) 0.11 H (0.00-0.031) K/mm3 Absolute Neuts (auto) 7.7 H (1.3-6.7) K/mm3 Absolute Nucleated RBC 0.000 (0.0-0.012) K/mm3 Nucleated RBC % 0.0 (0.0-0.2) % PT 13.1 (11.1-14.7) Seconds INR 1.0 APTT 27.5 (22.3-36.8) Seconds Sodium 133 L (137-145) mmol/L Potassium 3.4 (3.4-5.0) mmol/L Chloride 94 L (98-107) mmol/L Carbon Dioxide 25 (22-30) mmol/L Anion Gap 14 H (4-12) mmol/L BUN 37 H (9-20) mg/dL Creatinine 8.87 H (0.7-1.3) mg/dL Estim Creat Clear Calc 9 ml/min Estimated GFR 6 L (59 - ) Glucose 164 H (65-110) mg/dL Lactic Acid 3.9 H 2.9 H (0.7-2.0) mmol/L Calcium 8.9 (8.4-10.2) mg/dL Phosphorus 5.7 H Cancelled (2.5-4.5) mg/dL Magnesium 1.4 L (1.6-2.3) mg/dL Total Bilirubin 0.4 (0.2-1.3) mg/dL AST 33 (17-59) U/L ALT 17 (6-50) U/L Alkaline Phosphatase 110 (38-126) U/L Total Creatine Kinase < 20 L (55-170) U/L Troponin I 0.078 H* 0.091 H* (0.000-0.034) ng/mL NT-Pro-B Natriuret Pep > 82419 H (19.9-100) pg/mL Total Protein 5.6 L (6.3-8.2) g/dL Albumin 3.0 L (3.5-5.1) g/dL Lipase 78 (23-300) U/L TSH (Reflex) 1.990 (0.465-4.68) uIU/mL Ethyl Alcohol < 10 (<10) mg/dL Influenza A (RT-PCR) Negative (Negative) Influenza B (RT-PCR) Negative (Negative) RSV (RT-PCR) Negative (Negative) SARS-CoV-2 RNA (RT-PCR) Negative (Negative) Discharge Plan Discharge Clinical Impression: Diabetic foot infection, Peritoneal dialysis status, Elevated troponin, ESRD (end stage renal disease), Hypomagnesemia, Elevated lactic acid level, Elevated brain natriuretic peptide (BNP) level, Osteomyelitis Chest pain Qualifiers: Chest pain type: unspecified Qualified Code(s): R07.9 - Chest pain, unspecified Headache Qualifiers: Headache type: unspecified Headache chronicity pattern: unspecified pattern Intractability: not intractable Qualified Code(s): R51.9 - Headache, unspecified Patient Disposition: Left Against Medical Advice Condition: Serious Additional Instructions: As we discussed leaving in his medical advice in no way things in a dull when she to have the best medical care available and if you change your mind you are welcome to return to this hospital or any other at any time to receive further care. Please see your surgeons immediately. Patient Language: Niuean Prescriptions: No Action aspirin [Sami Low Dose Aspirin] 81 mg Tablet,Delayed Release (Dr/Ec) 81 mg PO HS ICaps AREDS2 (copper citrate) 250 mg-200 unit -12.5 mg-1 mg Tablet 1 tablet PO Q12H (DME) Dexcom G6 Transmitter Device See Rx Instructions .Route Rx Instructions: As directed gabapentin 100 mg tablet 100 mg PO BID Qty: 60 1RF lanthanum 1,000 mg tablet,chewable 1,000 mg PO TID Qty: 1 0RF Rx Instructions: administer with food; chew thoroughly before swallowing furosemide 80 mg tablet 160 mg PO BID lisinopril 20 mg tablet 20 mg PO BID pantoprazole 40 mg tablet,delayed release (DR/EC) 40 mg PO QAM Qty: 90 3RF midodrine 2.5 mg tablet 2.5 mg PO BID Rx Instructions: do not give last dose of day after 6PM or within 4 hrs of bedtime potassium chloride [K-Tab] 20 mEq tablet extended release 20 meq PO DAILY donepezil [Aricept] 5 mg tablet 5 mg PO QHS Qty: 90 1RF Rx Instructions: increase to 2 tablets after 1 month escitalopram oxalate [Lexapro] 10 mg tablet 10 mg PO DAILY Qty: 30 3RF famotidine 20 mg tablet 20 mg PO DAILY Qty: 30 0RF ondansetron 4 mg tablet,disintegrating 4 mg PO Q8H PRN (Reason: nausea and vomiting) Qty: 8 0RF acetaminophen 650 mg tablet extended release 650 mg PO Q8H PRN (Reason: pain) Qty: 30 0RF magnesium oxide 400 mg magnesium tablet 400 mg PO DAILY Qty: 30 0RF cholecalciferol (vitamin D3) [Vitamin D3] 125 mcg (5,000 unit) Tablet 125 mcg PO DAILY atorvastatin 80 mg tablet 80 mg PO HS carvedilol 25 mg tablet 25 mg PO BID tamsulosin 0.4 mg capsule 0.4 mg PO HS Dialyvite 800-Ultra D 0.8-2,000 mg-unit tablet 800 tablet PO DAILY insulin aspart U-100 [Novolog FlexPen U-100 Insulin] 100 unit/mL (3 mL) insulin pen 1 sliding scale dose subcut TID Patient Comments: PATIENT TAKES 5 UNITS WITH MEALS SCHEDULED AND GOES UP TO 15 UNITS IF IT GETS TO 300 insulin glargine [Basaglar KwikPen U-100 Insulin] 100 unit/mL (3 mL) insulin pen 35 unit subcut HS Patient Comments: 40 UNITS IN MORNING clopidogrel 75 mg tablet 75 mg PO HS artificial tears(hypromellose) 0.3 % drops 1 drp LEFT EYE QID PRN (Reason: dry eyes) Qty: 30 0RF hydrocodone-acetaminophen 5-325 mg tablet 1 tablet PO Q6H PRN (Reason: pain) Qty: 30 0RF levothyroxine 112 mcg tablet 112 mcg PO DAILY Qty: 90 2RF Follow-up/Referrals: Jeff Strickland MD [Primary Care Provider, [facility]] Time of Disposition: 07:49
[2024-11-29] MEDS: FAMOTIDINE 20 MG/2 ML VIAL IV PUSH (02:32)
[2024-11-29] MEDS: PROCHLORPERAZINE EDISYLATE 10 MG/2 ML VIAL IV PUSH (02:35)
[2024-11-29 02:39] LABS: Hematocrit 34.3 % (42.0-52.0); Hemoglobin 10.7 g/dL (14.0-18.0); Immature Granulocyte Percent A 1.0 % (0-0.5); Lymphocytes Absolute Auto 1.43 K/mm3 (0.9-3.2); Mean Corpuscular HGB Conc 31.2 g/dl (32-36); Mean Corpuscular Hemoglobin 28.5 pg (26-34); Mean Corpuscular Volume 91.2 fl (80-100); Nucleated Red Blood Cells Absolute Auto 0.000 K/mm3 (0.0-0.012); Nucleated Red Blood Cells Perc 0.0 % (0.0-0.2); Platelet Count Result 179 k/mm3 (150-375); Red Blood Count 3.76 M/mm3 (4.6-6.20); White Blood Count 10.6 K/mm3 (4.5-10.0)
[2024-11-29 02:56] LABS: INR 1.0; Partial Thromboplastin Time 27.5 Seconds (22.3-36.8); Prothrombin Time 13.1 Seconds (11.1-14.7)
[2024-11-29 03:01] LABS: Creatine Kinase < 20 U/L (55-170)
[2024-11-29 03:05] LABS: Alanine Aminotransferase 17 U/L (6-50); Albumin Level 3.0 g/dL (3.5-5.1); Alkaline Phosphatase 110 U/L (38-126); Anion Gap 14 mmol/L (4-12); Aspartate Amino Transferase 33 U/L (17-59); Bilirubin,Total 0.4 mg/dL (0.2-1.3); Blood Urea Nitrogen 37 mg/dL (9-20); Calcium 8.9 mg/dL (8.4-10.2); Carbon Dioxide 25 mmol/L (22-30); Chloride 94 mmol/L (98-107); Estimated CRCL calculation 9 ml/min; Estimated Glomerular Filt Rate 6; Glucose 164 mg/dL (65-110); Lipase 78 U/L (23-300); Potassium 3.4 mmol/L (3.4-5.0); Sodium 133 mmol/L (137-145); Total Protein 5.6 g/dL (6.3-8.2)
[2024-11-29 03:06] LABS: Magnesium 1.4 mg/dL (1.6-2.3)
[2024-11-29 03:19] LABS: Influenza A QL RT-PCR Negative (Negative); Influenza B QL RT-PCR Negative (Negative); RSV RNA, RT-PCR Negative (Negative); SARS-CoV-2 RNA PCR Negative (Negative)
[2024-11-29 03:24] LABS: Thyroid Stimulating Hormone Reflex 1.990 uIU/mL (0.465-4.68)
[2024-11-29 03:26] LABS: Troponin I 0.078 ng/mL (0.000-0.034)
[2024-11-29 03:28] LABS: NT Pro B Type Natriuretic Pept > 30000 pg/mL (19.9-100)
[2024-11-29] MEDS: MAGNESIUM SULF 2 GM/WATER 50ML 2 GM/50 ML BAG IVPB (03:50)
[2024-11-29 05:59] LABS: Troponin I 0.091 ng/mL (0.000-0.034)
--- NOTE | 2024-11-29 06:03 | ECG_ITS ---
Test Date: 2024-11-29 06:09:10 Measurements Intervals [place] Rate: 71 P: 71 WI: 154 QRS: -69 QRSD: 128 T: 55 QT: 453 QTc: 493 Interpretive Statements SINUS RHYTHM RIGHT BUNDLE BRANCH BLOCK LEFT ANTERIOR FASCICULAR BLOCK CANNOT R/O SEPTAL INFARCT, AGE INDETERMINATE BASELINE ARTIFACT- I, II, III, AVR, AVL, AVF, V1-V6 ABNORMAL ECG Compared to ECG 11/28/2024 20:28:22 No significant changes Electronically Signed On 11-29-2024 06:29:43 CDT by Dilan Preciado D.O.
--- NOTE | 2024-11-29 06:43 | PC.NURSE ---
pt requested lab to draw him. did not want er staff drawing his labs
--- NOTE | 2024-11-29 07:30 | PC.NURSE ---
Pt states Im not going to be poked anymore, all you guys ever want to do is jab needles in my arm Pt states he doesn't want blood cultures drawn and wants to leave. Pt educated on risks on signing out AMA
== END 2024-11-29 08:04 | disposition left against medical advice (07) ==
PROVIDERS: Emergency Provider Student in an Organized Health Care Education/Training Program; PCP Family Medicine
DX: R07.9 Chest pain, unspecified (principal); R51.9 Headache, unspecified; E83.42 Hypomagnesemia; R74.02 Elevation of levels of lactic acid dehydrogenase [LDH]; R79.89 Other specified abnormal findings of blood chemistry; M86.9 Osteomyelitis, unspecified; L08.9 Local infection of the skin and subcutaneous tissue, unspecified; E11.628 Type 2 diabetes mellitus with other skin complications; Z79.4 Long term (current) use of insulin; I13.2 Hypertensive heart and chronic kidney disease with heart failure and with stage 5 chronic kidney disease, or end stage renal disease; N18.6 End stage renal disease; I50.9 Heart failure, unspecified; Z99.2 Dependence on renal dialysis; F03.90 Unspecified dementia, unspecified severity, without behavioral disturbance, psychotic disturbance, mood disturbance, and anxiety; Z87.442 Personal history of urinary calculi; E03.9 Hypothyroidism, unspecified; D64.9 Anemia, unspecified; R94.31 Abnormal electrocardiogram [ECG] [EKG]
CPT/HCPCS: 36415; 71046; 73620; 80053; 82077; 82550; 83605; 83690; 83735; 83880; 84100; 84443; 84484; 85025; 85610; 85730; 87637; 93005; 96365; 96375; 99284; A9270; J0780; J1200; J3475